=== PATIENT | male | born 1960 | race Hispanic/Latino ===

== ENCOUNTER 2020-11-15 10:19 | Inpatient (IN) | payer OTHER ==
[2020-11-15] MEDS ORDERED: SODIUM CHLORIDE 0.9% 500 ML 500 ML IV ONE (10:36)
--- NOTE | 2020-11-15 10:50 | Emergency Department Report ---
HPI - General Time Seen by Provider: 11/15/20 10:36 - HPI HPI: This is a 59-year-old male presents to the emergency department via EMS from home with a complaint of shortness of breath, cough, fever, body aches, generalized weakness. Overall the symptoms have been going on for the past 3 weeks but worsened over the past 1 to 2 days. EMS found the patient to have severe hypoxia upon arrival. He was placed on a nonrebreather and went up into the high 80s, low 90s. Patient denies any past medical history but also does not follow with a primary care physician. He denies any tobacco use. ED Past Medical Hx - Social History Smoking Status: Never Smoker Substance Use Type: None ED Review of Systems ROS: Stated complaint: KATHY Other details as noted in HPI Comment: All other systems reviewed and negative Constitutional: chills, fever Eyes: denies: eye pain, vision change ENT: denies: ear pain, throat pain Respiratory: cough, shortness of breath Cardiovascular: denies: palpitations, edema Gastrointestinal: denies: abdominal pain, vomiting Musculoskeletal: myalgia. denies: joint swelling Skin: denies: rash, lesions Neurological: denies: numbness, paresthesias Physical Exam - Physical Exam Vital Signs: Vital Signs 11/15/20 10:30 Temperature 101.0 F H Pulse Rate 116 H Respiratory 56 H Rate Blood Pressure 147/89 O2 Sat by Pulse 79 L Oximetry Physical Exam: GENERAL: Patient is ill-appearing. HENT: Normocephalic. Atraumatic. Patient has moist mucous membranes. EYES: Extraocular motions are intact. Pupils equal reactive to light bilaterally. NECK: Supple. Trachea is midline. CHEST/LUNGS: Rhonchi heard throughout the chest. There is tachypnea and a ccessory muscle use. There is conversational dyspnea. There is respiratory distress noted. HEART/CARDIOVASCULAR: Regular. There is mild tachycardia. There is no murmur. ABDOMEN: Abdomen is soft, nontender. Patient has normal bowel sounds. SKIN: Skin is warm and dry. NEURO: The patient is awake, alert, and cooperative. The patient has no focal neurologic deficits. MUSCULOSKELETAL: There is no tenderness or deformity. There is no limitation range of motion. ED Course Vital Signs 11/15/20 10:30 Temperature 101.0 F H Pulse Rate 116 H Respiratory 56 H Rate Blood Pressure 147/89 O2 Sat by Pulse 79 L Oximetry - ABG Interpretation Ph: 7.446 PCO2: 29.9 PO2: 137 Bicarbonate: 20 Interpretation: respiratory alkalosis, metabolic alkalosis ED Medical Decision Making - Lab Data Result diagrams: 11/15/20 10:39 11/15/20 10:39 Lab Results 11/15/20 11/15/20 11/15/20 Range/Units 10:39 10:39 10:39 WBC 14.3 H (4.5-11.0) K/mm3 RBC 5.17 H (3.65-5.03) M/mm3 Hgb 15.2 (11.8-15.2) gm/dl Hct 45.6 (35.5-45.6) % MCV 88 (84-94) fl MCH 30 (28-32) pg MCHC 34 (32-34) % RDW 13.3 (13.2-15.2) % Plt Count 192 (140-440) K/mm3 Lymph % (Auto) 7.8 L (13.4-35.0) % [place] % (Auto) 7.6 H (0.0-7.3) % Eos % (Auto) 0.3 (0.0-4.3) % Baso % (Auto) 1.0 (0.0-1.8) % Lymph # (Auto) 1.1 L (1.2-5.4) K/mm3 [place] # (Auto) 1.1 H (0.0-0.8) K/mm3 Eos # (Auto) 0.0 (0.0-0.4) K/mm3 Baso # (Auto) 0.1 (0.0-0.1) K/mm3 Seg Neutrophils % 83.3 H (40.0-70.0) % Seg Neutrophils # 11.9 H (1.8-7.7) K/mm3 D-Dimer (0-234) ng/mlDDU ABG pH (7.320-7.450) POC ABG pCO2 (32.0-48.0) mmHg POC ABG pO2 (83-108) mmHg POC ABG HCO3 POC ABG Base Excess ABG Hemoglobin (12.0-17.5) ABG Oxyhemoglobin (94-98) ABG Methemoglobin (0.0-1.5) ABG Sodium (136.0-145.0) mmol/L ABG Potassium (3.40-4.50) mmol/L ABG Chloride (98-107) mmol/L ABG Glucose (65-95) mg/dL Carboxyhemoglobin (0.5-1.5) FiO2 Sodium 128 L (137-145) mmol/L Potassium 4.1 (3.6-5.0) mmol/L Chloride 96.0 L (98-107) mmol/L Carbon Dioxide 22 (22-30) mmol/L Anion Gap 14 mmol/L BUN 12 (9-20) mg/dL Creatinine 0.7 L (0.8-1.3) mg/dL Estimated GFR > 60 ml/min BUN/Creatinine Ratio 17 % Glucose 238 H (75-100) mg/dL Lactic Acid 4.10 H* (0.7-2.0) mmol/L Calcium 7.0 L (8.4-10.2) mg/dL Ferritin (30.0-300.0) ng/mL Total Bilirubin 1.40 H (0.1-1.2) mg/dL AST 49 H (5-40) units/L ALT 70 H (7-56) units/L Alkaline Phosphatase 113 (35-129) units/L Lactate Dehydrogenase 663 H (91-180) units/L Troponin T < 0.010 (0.00-0.029) ng/mL C-Reactive Protein 19.80 H (0.00-1.30) mg/dL Total Protein 7.2 (6.3-8.2) g/dL Albumin 2.9 L (3.9-5) g/dL Albumin/Globulin Ratio 0.7 % Procalcitonin (<0.15) ng/mL Arterial Blood Glucose (65-95) mg/dL Arterial Blood Ionized Calcium (4.6-5.3) mg/dL 11/15/20 11/15/20 11/15/20 Range/Units 10:39 10:39 10:39 WBC (4.5-11.0) K/mm3 RBC (3.65-5.03) M/mm3 Hgb (11.8-15.2) gm/dl Hct (35.5-45.6) % MCV (84-94) fl MCH (28-32) pg MCHC (32-34) % RDW (13.2-15.2) % Plt Count (140-440) K/mm3 Lymph % (Auto) (13.4-35.0) % [place] % (Auto) (0.0-7.3) % Eos % (Auto) (0.0-4.3) % Baso % (Auto) (0.0-1.8) % Lymph # (Auto) (1.2-5.4) K/mm3 [place] # (Auto) (0.0-0.8) K/mm3 Eos # (Auto) (0.0-0.4) K/mm3 Baso # (Auto) (0.0-0.1) K/mm3 Seg Neutrophils % (40.0-70.0) % Seg Neutrophils # (1.8-7.7) K/mm3 D-Dimer > 11536 H (0-234) ng/mlDDU ABG pH (7.320-7.450) POC ABG pCO2 (32.0-48.0) mmHg POC ABG pO2 (83-108) mmHg POC ABG HCO3 POC ABG Base Excess ABG Hemoglobin (12.0-17.5) ABG Oxyhemoglobin (94-98) ABG Methemoglobin (0.0-1.5) ABG Sodium (136.0-145.0) mmol/L ABG Potassium (3.40-4.50) mmol/L ABG Chloride (98-107) mmol/L ABG Glucose (65-95) mg/dL Carboxyhemoglobin (0.5-1.5) FiO2 Sodium (137-145) mmol/L Potassium (3.6-5.0) mmol/L Chloride (98-107) mmol/L Carbon Dioxide (22-30) mmol/L Anion Gap mmol/L BUN (9-20) mg/dL Creatinine (0.8-1.3) mg/dL Estimated GFR ml/min BUN/Creatinine Ratio % Glucose (75-100) mg/dL Lactic Acid (0.7-2.0) mmol/L Calcium (8.4-10.2) mg/dL Ferritin 672.8 H (30.0-300.0) ng/mL Total Bilirubin (0.1-1.2) mg/dL AST (5-40) units/L ALT (7-56) units/L Alkaline Phosphatase (35-129) units/L Lactate Dehydrogenase (91-180) units/L Troponin T (0.00-0.029) ng/mL C-Reactive Protein (0.00-1.30) mg/dL Total Protein (6.3-8.2) g/dL Albumin (3.9-5) g/dL Albumin/Globulin Ratio % Procalcitonin 0.51 (<0.15) ng/mL Arterial Blood Glucose (65-95) mg/dL Arterial Blood Ionized Calcium (4.6-5.3) mg/dL 11/15/20 Range/Units 11:20 WBC (4.5-11.0) K/mm3 RBC (3.65-5.03) M/mm3 Hgb (11.8-15.2) gm/dl Hct (35.5-45.6) % MCV (84-94) fl MCH (28-32) pg MCHC (32-34) % RDW (13.2-15.2) % Plt Count (140-440) K/mm3 Lymph % (Auto) (13.4-35.0) % [place] % (Auto) (0.0-7.3) % Eos % (Auto) (0.0-4.3) % Baso % (Auto) (0.0-1.8) % Lymph # (Auto) (1.2-5.4) K/mm3 [place] # (Auto) (0.0-0.8) K/mm3 Eos # (Auto) (0.0-0.4) K/mm3 Baso # (Auto) (0.0-0.1) K/mm3 Seg Neutrophils % (40.0-70.0) % Seg Neutrophils # (1.8-7.7) K/mm3 D-Dimer (0-234) ng/mlDDU ABG pH 7.446 (7.320-7.450) POC ABG pCO2 29.9 L (32.0-48.0) mmHg POC ABG pO2 137.3 H (83-108) mmHg POC ABG HCO3 20.1 POC ABG Base Excess -2.6 ABG Hemoglobin 15.0 (12.0-17.5) ABG Oxyhemoglobin 96.8 (94-98) ABG Methemoglobin 0.3 (0.0-1.5) ABG Sodium 126.5 L (136.0-145.0) mmol/L ABG Potassium 3.9 (3.40-4.50) mmol/L ABG Chloride 100.0 (98-107) mmol/L ABG Glucose 248 H (65-95) mg/dL Carboxyhemoglobin 1.5 (0.5-1.5) FiO2 100.0 Sodium (137-145) mmol/L Potassium (3.6-5.0) mmol/L Chloride (98-107) mmol/L Carbon Dioxide (22-30) mmol/L Anion Gap mmol/L BUN (9-20) mg/dL Creatinine (0.8-1.3) mg/dL Estimated GFR ml/min BUN/Creatinine Ratio % Glucose (75-100) mg/dL Lactic Acid (0.7-2.0) mmol/L Calcium (8.4-10.2) mg/dL Ferritin (30.0-300.0) ng/mL Total Bilirubin (0.1-1.2) mg/dL AST (5-40) units/L ALT (7-56) units/L Alkaline Phosphatase (35-129) units/L Lactate Dehydrogenase (91-180) units/L Troponin T (0.00-0.029) ng/mL C-Reactive Protein (0.00-1.30) mg/dL Total Protein (6.3-8.2) g/dL Albumin (3.9-5) g/dL Albumin/Globulin Ratio % Procalcitonin (<0.15) ng/mL Arterial Blood Glucose 248 H (65-95) mg/dL Arterial Blood Ionized Calcium 4.1 L (4.6-5.3) mg/dL - Radiology Data Radiology results: image reviewed interpreted by me: Chest x-ray shows bilateral patchy groundglass opacities concerning for pneumonia. No pneumothorax. No osseous abnormalities. - Medical Decision Making This patient presents to the emergency department with shortness of breath, fever, body aches, cough. Patient was very hypoxic when picked up by EMS. He arrived on a nonrebreather and was placed on a BiPAP. The patient tolerated the BiPAP well and his pulse ox went up to the high 90s and the tachypnea slowed slightly into the 30s. Chest x-ray shows bilateral patchy opacities concerning for pneumonia and consistent with COVID-19. Patient's labs shows a mild leukocytosis of 14,000, hyponatremia, mild transaminitis, and elevated inflammatory markers such as D-dimer, LDH, ferritin and CRP. The patient was given IV fluid resuscitation, IV Solu-Medrol, IV antibiotics. He will be admitted to the [facility] and has been accepted for admission by the hospitalist, Dr. Broussard. The patient was placed in patient isolation and droplet precautions immediately upon arrival to the main emergency department. I wore full PPE gear including a surgical hat, goggles, N95 mask, surgical mask, gown, and double gloves for every encounter. Critical Care Time: Yes Critical care time in (mins) excluding proc time.: 35 Critical care attestation.: If time is entered above; I have spent that time in minutes in the direct care of this critically ill patient, excluding procedure time. Critical care time was spent on this patient in doing his initial evaluation, multiple reeva luations, ordering and interpretation of labs and imaging, IV fluid resuscitation, IV Solu-Medrol, IV antibiotics, supplemental oxygen by BiPAP. Critical Care Time: 35 minutes ED Disposition Clinical Impression: Suspected 2019 novel coronavirus infection, Hypoxia Bilateral pneumonia Qualifiers: Pneumonia type: due to unspecified organism Lung location: unspecified part of lung Qualified Code(s): J18.9 - Pneumonia, unspecified organism Acute respiratory failure Qualifiers: Respiratory failure complication: hypoxia Qualified Code(s): J96.01 - Acute respiratory failure with hypoxia Disposition: 09 OP ADMIT IP TO THIS HOSP Is pt being admited?: Yes Condition: Serious Time of Disposition: 12:06
[2020-11-15 11:11] LABS: Hematocrit 45.6 % (35.5-45.6); Hemoglobin 15.2 gm/dl (11.8-15.2); Mean Corpuscular HGB Conc 34 % (32-34); Mean Corpuscular Volume 88 fl (84-94); Red Blood Count 5.17 M/mm3 (3.65-5.03); Red Cell Distribution Width 13.3 % (13.2-15.2)
[2020-11-15 11:12] LABS: Alanine Aminotransferase 70 units/L (7-56); Albumin 2.9 g/dL (3.9-5); Basophils # (Auto) 0.1 K/mm3 (0.0-0.1); Blood Urea Nitrogen 12 mg/dL (9-20); Eosinophils % (Auto) 0.3 % (0.0-4.3); Hemolysis Index 5; Lymphocytes # (Auto) 1.1 K/mm3 (1.2-5.4); Lymphocytes % (Auto) 7.8 % (13.4-35.0); Monocytes # (Auto) 1.1 K/mm3 (0.0-0.8); Monocytes % (Auto) 7.6 % (0.0-7.3); Platelet Count 192 K/mm3 (140-440)
[2020-11-15 11:13] LABS: BUN/Creatinine Ratio 17
[2020-11-15] MEDS ORDERED: AZITHROMYCIN/NS 500 MG/250 ML 500 MG/250 ML BAG IV ONE (11:20)
[2020-11-15] MEDS ORDERED: KETOROLAC 30 MG/1 ML INJ IV ONE (11:21)
[2020-11-15] MEDS ORDERED: methylPREDNISolone Sod Succinate 125 MG/2 ML INJ IV ONE (11:24)
--- NOTE | 2020-11-15 11:43 | XRay Report ---
CHEST 1 VIEW 11/15/2020 10:30 AM INDICATION / CLINICAL INFORMATION: SOB. COMPARISON: None available. FINDINGS: SUPPORT DEVICES: None. HEART / MEDIASTINUM: No significant abnormality. LUNGS / PLEURA: There are diffuse bilateral airspace and interstitial opacities. No pneumothorax. ADDITIONAL FINDINGS: No significant additional findings. IMPRESSION: 1. Diffuse bilateral airspace and interstitial opacities are concerning for an infectious process, in cluding viral and atypical etiologies. Pulmonary edema is also a consideration, considered less likel y. Signer Name: Pasquale Gonzalez MD Signed: 11/15/2020 11:39 AM Workstation Name: [id number]
--- NOTE | 2020-11-15 23:53 | History and Physical Report ---
History of Present Illness Date of examination: 11/15/20 Date of admission: 11/15/20 12:06 Chief complaint: Shortness of breath for 2 days History of present illness: 59-year-old female presents with shortness of breath cough fever weakness. "1 to 2 days. Patient has severe hypoxia per EMS. Her saturations are in the low 80s. With all oxygen and nonrebreather came down to low 90s. Patient denies any past medical history. Exposure to coronavirus present. Does not have a primary care physician. past medical history None Surgical history None - Social History Smoking Status: Never Smoker Substance Use Type: None Family history noncontributory Review of Systems ROS: Stated complaint: KATHY Other details as noted in HPI Comment: All other systems reviewed and negative Constitutional: chills, fever Eyes: denies: eye pain, vision change ENT: denies: ear pain, throat pain Respiratory: cough, shortness of breath Cardiovascular: denies: palpitations, edema Gastrointestinal: denies: abdominal pain, vomiting Musculoskeletal: myalgia. denies: joint swelling Skin: denies: rash, lesions Neurological: denies: numbness, paresthesias Medications and Allergies Allergies Allergy/AdvReac Type Severity Reaction Status Date / Time No Known Allergies Allergy Verified 11/16/20 00:01 Home Medications Medication Instructions Recorded Confirmed Last Taken Type No Known Home Medications [No 11/15/20 11/15/20 Unknown History Reported Home Medications] Exam - Constitutional Vitals: Temp Pulse Resp BP Pulse Ox 98.0 F 75 34 H 106/70 93 11/15/20 20:00 11/15/20 23:21 11/15/20 23:21 11/15/20 23:21 11/15/20 23:11 General appearance: Present: mild distress, well-nourished - EENT Eyes: Present: PERRL ENT: hearing intact, clear oral mucosa - Neck Neck: Present: supple, normal ROM - Respiratory Respiratory effort: normal Respiratory: bilateral: CTA, rhonchi (Scattered rhonchi) - Cardiovascular Heart rate: 88 Rhythm: regular Heart Sounds: Present: S1 & S2. Absent: rub, click - Extremities Extremities: pulses symmetrical, No edema Peripheral Pulses: within normal limits - Abdominal General gastrointestinal: Present: soft, non-tender, non-distended, normal bowel sounds Male genitourinary: Present: normal - Integumentary Integumentary: Present: clear, warm, dry - Musculoskeletal Musculoskeletal: gait normal, strength equal bilaterally - Psychiatric Psychiatric: appropriate mood/affect, intact judgment & insight - Neurologic Neurologic: CNII-XII intact, moves all extremities HEART Score - HEART Score Troponin: Troponin T < 0.010 ng/mL (0.00-0.029) 11/15/20 10:39 Results - Labs CBC & Chem 7: 11/16/20 05:29 11/16/20 05:29 Labs: Laboratory Last Values WBC 14.3 K/mm3 (4.5-11.0) H 11/15/20 10:39 RBC 5.17 M/mm3 (3.65-5.03) H 11/15/20 10:39 Hgb 15.2 gm/dl (11.8-15.2) 11/15/20 10:39 Hct 45.6 % (35.5-45.6) 11/15/20 10:39 MCV 88 fl (84-94) 11/15/20 10:39 MCH 30 pg (28-32) 11/15/20 10:39 MCHC 34 % (32-34) 11/15/20 10:39 RDW 13.3 % (13.2-15.2) 11/15/20 10:39 Plt Count 192 K/mm3 (140-440) 11/15/20 10:39 Lymph % (Auto) 7.8 % (13.4-35.0) L 11/15/20 10:39 [place] % (Auto) 7.6 % (0.0-7.3) H 11/15/20 10:39 Eos % (Auto) 0.3 % (0.0-4.3) 11/15/20 10:39 Baso % (Auto) 1.0 % (0.0-1.8) 11/15/20 10:39 Lymph # (Auto) 1.1 K/mm3 (1.2-5.4) L 11/15/20 10:39 [place] # (Auto) 1.1 K/mm3 (0.0-0.8) H 11/15/20 10:39 Eos # (Auto) 0.0 K/mm3 (0.0-0.4) 11/15/20 10:39 Baso # (Auto) 0.1 K/mm3 (0.0-0.1) 11/15/20 10:39 Seg Neutrophils % 83.3 % (40.0-70.0) H 11/15/20 10:39 Seg Neutrophils # 11.9 K/mm3 (1.8-7.7) H 11/15/20 10:39 D-Dimer > 35246 ng/mlDDU (0-234) H 11/15/20 10:39 ABG pH 7.446 (7.320-7.450) 11/15/20 11:20 POC ABG pCO2 29.9 mmHg (32.0-48.0) L 11/15/20 11:20 POC ABG pO2 137.3 mmHg (83-108) H 11/15/20 11:20 POC ABG HCO3 20.1 11/15/20 11:20 POC ABG Base Excess -2.6 11/15/20 11:20 ABG Hemoglobin 15.0 (12.0-17.5) 11/15/20 11:20 ABG Oxyhemoglobin 96.8 (94-98) 11/15/20 11:20 ABG Methemoglobin 0.3 (0.0-1.5) 11/15/20 11:20 ABG Sodium 126.5 mmol/L (136.0-145.0) L 11/15/20 11:20 ABG Potassium 3.9 mmol/L (3.40-4.50) 11/15/20 11:20 ABG Chloride 100.0 mmol/L (98-107) 11/15/20 11:20 ABG Glucose 248 mg/dL (65-95) H 11/15/20 11:20 Carboxyhemoglobin 1.5 (0.5-1.5) 11/15/20 11:20 FiO2 100.0 11/15/20 11:20 Sodium 128 mmol/L (137-145) L 11/15/20 10:39 Potassium 4.1 mmol/L (3.6-5.0) 11/15/20 10:39 Chloride 96.0 mmol/L (98-107) L 11/15/20 10:39 Carbon Dioxide 22 mmol/L (22-30) 11/15/20 10:39 Anion Gap 14 mmol/L 11/15/20 10:39 BUN 12 mg/dL (9-20) 11/15/20 10:39 Creatinine 0.7 mg/dL (0.8-1.3) L 11/15/20 10:39 Estimated GFR > 60 ml/min 11/15/20 10:39 BUN/Creatinine Ratio 17 % 11/15/20 10:39 Glucose 238 mg/dL (75-100) H 11/15/20 10:39 POC Glucose 284 mg/dL (70-105) H 11/15/20 23:41 Lactic Acid 2.30 mmol/L (0.7-2.0) H* 11/15/20 13:41 Calcium 7.0 mg/dL (8.4-10.2) L 11/15/20 10:39 Ferritin 672.8 ng/mL (30.0-300.0) H 11/15/20 10:39 Total Bilirubin 1.40 mg/dL (0.1-1.2) H 11/15/20 10:39 AST 49 units/L (5-40) H 11/15/20 10:39 ALT 70 units/L (7-56) H 11/15/20 10:39 Alkaline Phosphatase 113 units/L (35-129) 11/15/20 10:39 Lactate Dehydrogenase 663 units/L (91-180) H 11/15/20 10:39 Troponin T < 0.010 ng/mL (0.00-0.029) 11/15/20 10:39 C-Reactive Protein 19.80 mg/dL (0.00-1.30) H 11/15/20 10:39 Total Protein 7.2 g/dL (6.3-8.2) 11/15/20 10:39 Albumin 2.9 g/dL (3.9-5) L 11/15/20 10:39 Albumin/Globulin Ratio 0.7 % 11/15/20 10:39 Procalcitonin 0.51 ng/mL (<0.15) 11/15/20 10:39 Arterial Blood Glucose 248 mg/dL (65-95) H 11/15/20 11:20 Arterial Blood Ionized Calcium 4.1 mg/dL (4.6-5.3) L 11/15/20 11:20 Short CBC 11/15/20 Range/Units 10:39 WBC 14.3 H (4.5-11.0) K/mm3 Hgb 15.2 (11.8-15.2) gm/dl Hct 45.6 (35.5-45.6) % Plt Count 192 (140-440) K/mm3 BMP 11/15/20 10:39 Sodium 128 L Potassium 4.1 Chloride 96.0 L Carbon Dioxide 22 BUN 12 Creatinine 0.7 L Glucose 238 H Calcium 7.0 L Cardiac Enzymes 11/15/20 Range/Units 10:39 Troponin T < 0.010 (0.00-0.029) ng/mL Liver Function 11/15/20 Range/Units 10:39 Total Bilirubin 1.40 H (0.1-1.2) mg/dL AST 49 H (5-40) units/L ALT 70 H (7-56) units/L Alkaline Phosphatase 113 (35-129) units/L Albumin 2.9 L (3.9-5) g/dL Microbiology: Microbiology 11/15/20 10:39 Peripheral/Venous Blood Culture - Preliminary Culture in Progress 11/15/20 10:39 Peripheral/Venous Blood Culture - Preliminary Culture in Progress - Imaging and Cardiology Chest x-ray: report reviewed Imaging and Cardiology: Chest x-ray IMPRESSION: 1. Diffuse bilateral airspace and interstitial opacities are concerning for an infectious process, including viral and atypical etiologies. Pulmonary edema is also a consideration, considered less likely. Gupta/IV: Voiding Method Urinal IV Catheter Type [Left Peripheral IV Antecubital] Assessment and Plan Advance Directives: Yes (Full code) VTE prophylaxis?: Chemical Plan of care discussed with patient/family: Yes - Patient Problems (1) Acute respiratory failure with hypoxia Current Visit: Yes Status: Acute Plan to address problem: Patient on 40% Ventimask Oxygen supplementation as necessary Pulmonary consult requested (2) Sepsis Current Visit: Yes Status: Acute Plan to address problem: Patient has high lactic acid and high white count consistent with sepsis IV antibiotics for now (3) Bilateral pneumonia Current Visit: Yes Status: Acute Qualifiers: Pneumonia type: due to unspecified organism Lung location: unspecified part of lung Qualified Code(s): J18.9 - Pneumonia, unspecified organism Plan to address problem: Patient initiated on IV ceftriaxone and azithromycin Treat as community-acquired pneumonia for now ID consult requested (4) Suspected 2019 novel coronavirus infection Current Visit: Yes Status: Acute Plan to address problem: Coronavirus PCR requested Patient initiated on IV Decadron 8 mg every 24 (5) Hyponatremia Current Visit: Yes Status: Acute Plan to address problem: Normal saline for 75 cc/h for 12 hours (6) Transaminitis Current Visit: Yes Status: Acute Plan to address problem: Secondary to Covid infection (7) DVT prophylaxis Current Visit: Yes Status: Acute Plan to address problem: On Lovenox and GI prophylaxis (8) Hyperglycemia Current Visit: Yes Status: Acute Plan to address problem: Patient may be having type 2 diabetes which is undiagnosed Check hemoglobin A1c Accu-Cheks for now and coverage for now May need insulin at the time of discharge
[2020-11-15] MEDS ORDERED: ONDANSETRON 4 MG/2 ML INJ IV PRN (23:55)
[2020-11-15] MEDS ORDERED: oxyCODONE /ACETAMINOPHEN 5-325MG TAB PO PRN (23:55)
[2020-11-15] MEDS ORDERED: METOCLOPRAMIDE 10 MG/2 ML INJ IV PRN (23:55)
[2020-11-15] MEDS ORDERED: HYDROmorphone 1 MG/1 ML INJ IV PRN (23:55)
[2020-11-16] MEDS ORDERED: dexAMETHasone 4 MG/ML VIAL IV SCH
[2020-11-16] MEDS: FAMOTIDINE 20 MG TAB PO SCH ×3 (01:57→22:17)
[2020-11-16 02:34] LABS: Bacteria,Urine 1+ /HPF (Negative); Bilirubin,Urine NEG (Negative); Blood,Urine NEG (Negative); Color,Urine Amber (Yellow); Mucus,Urine 3+ /HPF
[2020-11-16 05:42] LABS: Basophils # (Auto) 0.2 K/mm3 (0.0-0.1); Basophils % (Auto) 1.4 % (0.0-1.8); Hematocrit 41.5 % (35.5-45.6); Hemoglobin 14.2 gm/dl (11.8-15.2); Lymphocytes # (Auto) 0.6 K/mm3 (1.2-5.4); Lymphocytes % (Auto) 4.5 % (13.4-35.0); Mean Corpuscular HGB Conc 34 % (32-34); Mean Corpuscular Volume 88 fl (84-94); Monocytes # (Auto) 0.6 K/mm3 (0.0-0.8); Monocytes % (Auto) 4.3 % (0.0-7.3); Platelet Count 146 K/mm3 (140-440); Red Blood Count 4.74 M/mm3 (3.65-5.03); Red Cell Distribution Width 13.3 % (13.2-15.2)
[2020-11-16 06:07] LABS: Alanine Aminotransferase 49 units/L (7-56); Albumin 2.4 g/dL (3.9-5); Blood Urea Nitrogen 23 mg/dL (9-20); Hemolysis Index 6
[2020-11-16 06:10] LABS: BUN/Creatinine Ratio 38
--- NOTE | 2020-11-16 08:31 | Consultation ---
History of Present Illness Consult date: 11/16/20 Requesting physician: MAUREEN BRIONES Reason for consult: hypoxemia History of present illness: 59 y/o male presents with 3 weeks of worsening shortness of breath. Hypoxic in the field and placed on non-rebreather and now continuous bipap therapy. Patient had an ABG that showed respiratory alkalosis with hypoxemia. CXR shows mild cardiomegaly and bilateral airspace disease that appears to be more dense on the periphery. Placed in isolation as concern for COVID. Started on Dexamethasone. Given 125 of solumedrol in the ED. STarted on empiric abx therapy. Remainder of the review is negative. Labs were abnormal with elevated inflammatory markers and elevated lactic acid. Medications and Allergies Allergies Allergy/AdvReac Type Severity Reaction Status Date / Time No Known Allergies Allergy Verified 11/16/20 00:01 Home Medications Medication Instructions Recorded Confirmed Last Taken Type No Known Home Medications [No 11/15/20 11/15/20 Unknown History Reported Home Medications] Active Meds: Active Medications Acetaminophen (Acetaminophen 325 Mg Tab) 650 mg PO Q4H PRN PRN Reason: Pain MILD(1-3)/Fever >100.5/BUTTS Dexamethasone (Dexamethasone 4 Mg/Ml Vial) 6 mg IV Q24H RAEANN Enoxaparin Sodium (Enoxaparin 40 Mg/0.4 Ml Inj) 40 mg SUB-Q QDAY@2200 RAEANN; Protocol Famotidine (Famotidine 20 Mg Tab) 20 mg PO BID RAEANN Last Admin: 11/16/20 01:57 Dose: 20 mg Documented by: Hydromorphone HCl (Hydromorphone 1 Mg/1 Ml Inj) 0.5 mg IV Q3H PRN PRN Reason: Pain , Severe (7-10) Azithromycin (Zithromax/Ns) 500 mg in 250 mls @ 250 mls/hr IV Q24H RAEANN Ceftriaxone Sodium (Rocephin/Ns 2 Gm/100 Ml) 2 gm in 100 mls @ 200 mls/hr IV Q24HR RAEANN; Protocol Insulin Human Lispro (Insulin Lispro 100 Unit/Ml) 0 unit SUB-Q ACHS RAEANN; Protocol Metoclopramide HCl (Metoclopramide 10 Mg/2 Ml Inj) 10 mg IV Q6H PRN PRN Reason: Nausea And Vomiting Ondansetron HCl (Ondansetron 4 Mg/2 Ml Inj) 4 mg IV Q8H PRN PRN Reason: Nausea And Vomiting Oxycodone/Acetaminophen (Oxycodone /Acetaminophen 5-325mg Tab) 1 tab PO Q6H PRN PRN Reason: Pain, Moderate (4-6) Sodium Chloride (Sodium Chloride 0.9% 10 Ml Flush Syringe) 10 ml IV BID RAEANN Sodium Chloride (Sodium Chloride 0.9% 10 Ml Flush Syringe) 10 ml IV PRN PRN PRN Reason: LINE FLUSH Physical Examination Vital signs: Vital Signs Temp Pulse Resp BP Pulse Ox 101.0 F H 116 H 46 H 145/90 99 11/15/20 10:30 11/15/20 10:30 11/15/20 10:30 11/15/20 10:30 11/15/20 10:30 General appearance: alert ENT: other (full face mask bipap being worn) Ascultation: Bilateral: rales Percussion: Bilateral: not dull Cardiovascular: regular rate and rhythm Gastrointestinal: soft, non-tender Results - Laboratory Findings CBC and BMP: 11/16/20 05:29 11/16/20 05:29 ABG ABG pH 7.446 (7.320-7.450) 11/15/20 11:20 POC ABG pCO2 29.9 mmHg (32.0-48.0) L 11/15/20 11:20 POC ABG pO2 137.3 mmHg (83-108) H 11/15/20 11:20 POC ABG HCO3 20.1 11/15/20 11:20 PT/INR, D-dimer D-Dimer > 98155 ng/mlDDU (0-234) H 11/15/20 10:39 Abnormal lab findings: Abnormal Labs 11/15/20 11/15/20 11/15/20 10:39 10:39 10:39 WBC 14.3 H RBC 5.17 H Lymph % (Auto) 7.8 L [place] % (Auto) 7.6 H Lymph # (Auto) 1.1 L [place] # (Auto) 1.1 H Baso # (Auto) Seg Neutrophils % 83.3 H Seg Neutrophils # 11.9 H D-Dimer POC ABG pCO2 POC ABG pO2 ABG Sodium ABG Glucose Sodium 128 L Chloride 96.0 L Carbon Dioxide BUN Creatinine 0.7 L Glucose 238 H POC Glucose Hemoglobin A1c Lactic Acid 4.10 H* Calcium 7.0 L Ferritin Total Bilirubin 1.40 H AST 49 H ALT 70 H Lactate Dehydrogenase 663 H C-Reactive Protein 19.80 H Albumin 2.9 L Arterial Blood Glucose Arterial Blood Ionized Calcium Ur Specific [place] 11/15/20 11/15/20 11/15/20 10:39 10:39 11:20 WBC RBC Lymph % (Auto) [place] % (Auto) Lymph # (Auto) [place] # (Auto) Baso # (Auto) Seg Neutrophils % Seg Neutrophils # D-Dimer > 24107 H POC ABG pCO2 29.9 L POC ABG pO2 137.3 H ABG Sodium 126.5 L ABG Glucose 248 H Sodium Chloride Carbon Dioxide BUN Creatinine Glucose POC Glucose Hemoglobin A1c Lactic Acid Calcium Ferritin 672.8 H Total Bilirubin AST ALT Lactate Dehydrogenase C-Reactive Protein Albumin Arterial Blood Glucose 248 H Arterial Blood Ionized Calcium 4.1 L Ur Specific [place] 11/15/20 11/15/20 11/16/20 13:41 23:41 01:45 WBC RBC Lymph % (Auto) [place] % (Auto) Lymph # (Auto) [place] # (Auto) Baso # (Auto) Seg Neutrophils % Seg Neutrophils # D-Dimer POC ABG pCO2 POC ABG pO2 ABG Sodium ABG Glucose Sodium Chloride Carbon Dioxide BUN Creatinine Glucose POC Glucose 284 H Hemoglobin A1c Lactic Acid 2.30 H* Calcium Ferritin Total Bilirubin AST ALT Lactate Dehydrogenase C-Reactive Protein Albumin Arterial Blood Glucose Arterial Blood Ionized Calcium Ur Specific [place] 1.037 H 11/16/20 11/16/20 11/16/20 05:29 05:29 05:29 WBC 12.9 H RBC Lymph % (Auto) 4.5 L [place] % (Auto) Lymph # (Auto) 0.6 L [place] # (Auto) Baso # (Auto) 0.2 H Seg Neutrophils % 89.8 H Seg Neutrophils # 11.5 H D-Dimer POC ABG pCO2 POC ABG pO2 ABG Sodium ABG Glucose Sodium 131 L Chloride Carbon Dioxide 21 L BUN 23 H Creatinine 0.6 L Glucose 342 H POC Glucose Hemoglobin A1c Lactic Acid 2.60 H* Calcium 7.0 L Ferritin Total Bilirubin AST ALT Lactate Dehydrogenase C-Reactive Protein Albumin 2.4 L Arterial Blood Glucose Arterial Blood Ionized Calcium Ur Specific [place] 11/16/20 05:29 WBC RBC Lymph % (Auto) [place] % (Auto) Lymph # (Auto) [place] # (Auto) Baso # (Auto) Seg Neutrophils % Seg Neutrophils # D-Dimer POC ABG pCO2 POC ABG pO2 ABG Sodium ABG Glucose Sodium Chloride Carbon Dioxide BUN Creatinine Glucose POC Glucose Hemoglobin A1c 11.7 H Lactic Acid Calcium Ferritin Total Bilirubin AST ALT Lactate Dehydrogenase C-Reactive Protein Albumin Arterial Blood Glucose Arterial Blood Ionized Calcium Ur Specific [place] - Diagnostic Findings Chest x-ray: image reviewed Assessment and Plan 59 y/o male with acute respiratory failure, abnormal CXR and abnormal lab studies. 1. Pulm- Agree with concern for covid. Agree with empiric abx but procal is only mildly elevated. Await cultures. Continue bipap therapy for now but will need to monitor closely. [facility] [place] has ordered CTA, but I spoke with pharmacy and we will empirically treat with BID lovenox therapy. COntinue empiric steroid therapy for COVID until studies back. Not sure that he will be able to prone on bipap therapy. MOnitor volume status and run as dry as possible. 2. Renal-normal function but all electrolytes abnormal. HYponatremia and Hypochloremia volume up vs volume down. Sent BNP. Would suggest obtaning echo as well. Not sure what to make of elevated lactate unless that is from increased work of breathing or damage to other tissue unknown. May need to check LFT's and Coags as well. 3. Guarded Prognosis.
[2020-11-16] MEDS: ENOXAPARIN 80 MG/0.8 ML INJ SUB-Q SCH ×2 (10:02→22:17)
[2020-11-16] MEDS: AZITHROMYCIN/NS 500 MG/250 ML 500 MG/250 ML BAG IV SCH (10:02)
[2020-11-16] MEDS: cefTRIAXone/NS 2 GM/100 ML 2 GM/100 ML BAG IV SCH (10:03)
--- NOTE | 2020-11-16 10:32 | Progress Note ---
Assessment and Plan Assessment and plan: 59-year-old female presents with shortness of breath cough fever weakness. "1 to 2 days. Patient has severe hypoxia per EMS. Her saturations are in the low 80s. With all oxygen and nonrebreather came down to low 90s. Patient denies any past medical history. Exposure to coronavirus present. Does not have a primary care physician. 11/16: Patient continues on BiPAP throughout the night. Labs are remarkable for hypoxia with improving renal function but lactic acidosis without fever. CTA has been ordered to rule out pulmonary embolism. I agree with increasing enoxaparin to twice daily full dose for empiric treatment of pulmonary embolism. Will obtain ID consultation on further evaluation for possible underlying pneumonia versus COVID-19. We will also obtain echocardiogram for evaluation. Will discontinue fluids at this time. (1) Acute respiratory failure with hypoxia Current Visit: Yes Status: Acute Plan to address problem: Patient on 40% Ventimask Oxygen supplementation as necessary Pulmonary consult requested (2) Sepsis Current Visit: Yes Status: Acute Plan to address problem: Patient has high lactic acid and high white count consistent with sepsis IV antibiotics for now (3) Bilateral pneumonia Current Visit: Yes Status: Acute Qualifiers: Pneumonia type: due to unspecified organism Lung location: unspecified part of lung Qualified Code(s): J18.9 - Pneumonia, unspecified organism Plan to address problem: Patient initiated on IV ceftriaxone and azithromycin Treat as community-acquired pneumonia for now ID consult requested (4) Suspected 2019 novel coronavirus infection Current Visit: Yes Status: Acute Plan to address problem: Coronavirus PCR requested Patient initiated on IV Decadron 8 mg every 24 (5) Hyponatremia Current Visit: Yes Status: Acute Plan to address problem: Normal saline for 75 cc/h for 12 hours (6) Transaminitis Current Visit: Yes Status: Acute Plan to address problem: Secondary to Covid infection (7) DVT prophylaxis Current Visit: Yes Status: Acute Plan to address problem: On Lovenox and GI prophylaxis (8) Hyperglycemia Current Visit: Yes Status: Acute Plan to address problem: Patient may be having type 2 diabetes which is undiagnosed Check hemoglobin A1c Accu-Cheks for now and coverage for now May need insulin at the time of discharge The high probability of a clinically significant, sudden or life threatening deterioration of the [pulmonary] system(s) required my full and direct attention, intervention and personal management. The aggregate critical care time was [35] minutes. This time is in addition to time spent performing reported procedures but includes the following: [X] Data Review and interpretation [X] Patient assessment and monitoring of vital signs [X] Documentation [X] Medication orders and management History Interval history: Patient seen and examined still with shortness of breath on BiPAP. Discussed with nursing staff about CTA. Hospitalist Physical - Physical exam Narrative exam: VITAL SIGNS: Reviewed. GENERAL: The patient appears normally developed, mild to moderate respiratory distress vital signs as documented. HEAD: No signs of head trauma. EYES: Pupils are equal. Extraocular motions intact. EARS: Hearing grossly intact. MOUTH: Oropharynx is normal. NECK: No adenopathy, no JVD. CHEST: Chest with diminished breath sounds bilaterally. No wheezes, rales, or rhonchi. CARDIAC: Regular rate and rhythm. S1 and S2, without murmurs, gallops, or rubs. VASCULAR: No Edema. Peripheral pulses normal and equal in all extremities. ABDOMEN: Soft, non tender and non distended. No rebound or guarding, and no masses palpated. Bowel Sounds normal. MUSCULOSKELETAL: Good range of motion of all major joints. Extremities without clubbing, cyanosis or edema. NEUROLOGIC EXAM: Alert and oriented x 3 No focal sensory or strength deficits. Speech normal. Follows commands. PSYCHIATRIC: Mood normal. SKIN: detail exam as documented in skin assessment - Constitutional Vitals: Temp Pulse Resp BP Pulse Ox 98.1 F 70 35 H 118/76 95 11/16/20 08:42 11/16/20 07:59 11/16/20 07:59 11/16/20 07:59 11/16/20 07:59 General appearance: Present: mild distress, well-nourished HEART Score - HEART Score Troponin: Troponin T < 0.010 ng/mL (0.00-0.029) 11/15/20 10:39 Results - Labs CBC & Chem 7: 11/16/20 05:29 11/16/20 05:29 Labs: Laboratory Last Values WBC 12.9 K/mm3 (4.5-11.0) H 11/16/20 05:29 RBC 4.74 M/mm3 (3.65-5.03) 11/16/20 05:29 Hgb 14.2 gm/dl (11.8-15.2) 11/16/20 05:29 Hct 41.5 % (35.5-45.6) 11/16/20 05:29 MCV 88 fl (84-94) 11/16/20 05:29 MCH 30 pg (28-32) 11/16/20 05:29 MCHC 34 % (32-34) 11/16/20 05:29 RDW 13.3 % (13.2-15.2) 11/16/20 05:29 Plt Count 146 K/mm3 (140-440) 11/16/20 05:29 Lymph % (Auto) 4.5 % (13.4-35.0) L 11/16/20 05:29 [place] % (Auto) 4.3 % (0.0-7.3) 11/16/20 05:29 Eos % (Auto) 0.0 % (0.0-4.3) 11/16/20 05:29 Baso % (Auto) 1.4 % (0.0-1.8) 11/16/20 05:29 Lymph # (Auto) 0.6 K/mm3 (1.2-5.4) L 11/16/20 05:29 [place] # (Auto) 0.6 K/mm3 (0.0-0.8) 11/16/20 05:29 Eos # (Auto) 0.0 K/mm3 (0.0-0.4) 11/16/20 05:29 Baso # (Auto) 0.2 K/mm3 (0.0-0.1) H 11/16/20 05:29 Seg Neutrophils % 89.8 % (40.0-70.0) H 11/16/20 05:29 Seg Neutrophils # 11.5 K/mm3 (1.8-7.7) H 11/16/20 05:29 D-Dimer > 51626 ng/mlDDU (0-234) H 11/15/20 10:39 ABG pH 7.446 (7.320-7.450) 11/15/20 11:20 POC ABG pCO2 29.9 mmHg (32.0-48.0) L 11/15/20 11:20 POC ABG pO2 137.3 mmHg (83-108) H 11/15/20 11:20 POC ABG HCO3 20.1 11/15/20 11:20 POC ABG Base Excess -2.6 11/15/20 11:20 ABG Hemoglobin 15.0 (12.0-17.5) 11/15/20 11:20 ABG Oxyhemoglobin 96.8 (94-98) 11/15/20 11:20 ABG Methemoglobin 0.3 (0.0-1.5) 11/15/20 11:20 ABG Sodium 126.5 mmol/L (136.0-145.0) L 11/15/20 11:20 ABG Potassium 3.9 mmol/L (3.40-4.50) 11/15/20 11:20 ABG Chloride 100.0 mmol/L (98-107) 11/15/20 11:20 ABG Glucose 248 mg/dL (65-95) H 11/15/20 11:20 Carboxyhemoglobin 1.5 (0.5-1.5) 11/15/20 11:20 FiO2 100.0 11/15/20 11:20 Sodium 131 mmol/L (137-145) L 11/16/20 05:29 Potassium 4.6 mmol/L (3.6-5.0) 11/16/20 05:29 Chloride 100.7 mmol/L (98-107) 11/16/20 05:29 Carbon Dioxide 21 mmol/L (22-30) L 11/16/20 05:29 Anion Gap 14 mmol/L 11/16/20 05:29 BUN 23 mg/dL (9-20) H 11/16/20 05:29 Creatinine 0.6 mg/dL (0.8-1.3) L 11/16/20 05:29 Estimated GFR > 60 ml/min 11/16/20 05:29 BUN/Creatinine Ratio 38 % 11/16/20 05:29 Glucose 342 mg/dL (75-100) H 11/16/20 05:29 POC Glucose 284 mg/dL (70-105) H 11/15/20 23:41 Hemoglobin A1c 11.7 % (4-6) H 11/16/20 05:29 Lactic Acid 2.60 mmol/L (0.7-2.0) H* 11/16/20 05:29 Calcium 7.0 mg/dL (8.4-10.2) L 11/16/20 05:29 Ferritin 672.8 ng/mL (30.0-300.0) H 11/15/20 10:39 Total Bilirubin 1.00 mg/dL (0.1-1.2) 11/16/20 05:29 AST 37 units/L (5-40) 11/16/20 05:29 ALT 49 units/L (7-56) 11/16/20 05:29 Alkaline Phosphatase 115 units/L (35-129) 11/16/20 05:29 Lactate Dehydrogenase 663 units/L (91-180) H 11/15/20 10:39 Troponin T < 0.010 ng/mL (0.00-0.029) 11/15/20 10:39 C-Reactive Protein 19.80 mg/dL (0.00-1.30) H 11/15/20 10:39 NT-Pro-B Natriuret Pep 434.3 pg/mL (0-900) 11/16/20 08:47 Total Protein 6.5 g/dL (6.3-8.2) 11/16/20 05:29 Albumin 2.4 g/dL (3.9-5) L 11/16/20 05:29 Albumin/Globulin Ratio 0.6 % 11/16/20 05:29 Procalcitonin 0.51 ng/mL (<0.15) 11/15/20 10:39 Arterial Blood Glucose 248 mg/dL (65-95) H 11/15/20 11:20 Arterial Blood Ionized Calcium 4.1 mg/dL (4.6-5.3) L 11/15/20 11:20 Urine Color [place] (Yellow) 11/16/20 01:45 Urine Turbidity Slightly-cloudy (Clear) 11/16/20 01:45 Urine pH 6.0 (5.0-7.0) 11/16/20 01:45 Ur Specific [place] 1.037 (1.003-1.030) H 11/16/20 01:45 Urine Protein 30 mg/dl mg/dL (Negative) 11/16/20 01:45 Urine Glucose (UA) >=500 mg/dL (Negative) 11/16/20 01:45 Urine Ketones 20 mg/dL (Negative) 11/16/20 01:45 Urine Blood Neg (Negative) 11/16/20 01:45 Urine Nitrite Neg (Negative) 11/16/20 01:45 Urine Bilirubin Neg (Negative) 11/16/20 01:45 Urine Urobilinogen 2.0 mg/dL (<2.0) 11/16/20 01:45 Ur Leukocyte Esterase Neg (Negative) 11/16/20 01:45 Urine WBC (Auto) 2.0 /HPF (0.0-6.0) 11/16/20 01:45 Urine RBC (Auto) 1.0 /HPF (0.0-6.0) 11/16/20 01:45 Urine Bacteria (Auto) 1+ /HPF (Negative) 11/16/20 01:45 Urine Mucus 3+ /HPF 11/16/20 01:45 Microbiology: Microbiology 11/15/20 10:39 Peripheral/Venous Blood Culture - Preliminary Culture in Progress 11/15/20 10:39 Peripheral/Venous Blood Culture - Preliminary Culture in Progress Gupta/IV: Voiding Method Urinal IV Catheter Type [Left Peripheral IV Antecubital] Active Medications - Current Medications Current Medications: Generic Name Dose Route Start Last Admin Trade Name Freq PRN Reason Stop Dose Admin Acetaminophen 650 mg 11/15/20 23:55 Acetaminophen 325 Mg Tab PO Q4H PRN Pain MILD(1-3)/Fever >100.5/BUTTS Dexamethasone 6 mg 11/17/20 08:00 Dexamethasone 4 Mg/Ml Vial IV Q24H RAEANN Enoxaparin Sodium 80 mg 11/16/20 10:00 11/16/20 10:02 Enoxaparin 80 Mg/0.8 Ml Inj SUB-Q 80 mg Q12HR RAEANN Administration Famotidine 20 mg 11/15/20 23:45 11/16/20 10:03 Famotidine 20 Mg Tab PO 20 mg BID RAEANN Administration Hydromorphone HCl 0.5 mg 11/15/20 23:55 Hydromorphone 1 Mg/1 Ml Inj IV Q3H PRN Pain , Severe (7-10) Azithromycin 500 mg in 250 mls @ 250 mls/hr 11/16/20 10:00 11/16/20 10:02 Zithromax/Ns IV 250 mls/hr Q24H RAEANN Administration Ceftriaxone Sodium 2 gm in 100 mls @ 200 mls/hr 11/16/20 10:00 11/16/20 10:03 Rocephin/Ns 2 Gm/100 Ml IV 200 mls/hr Q24HR RAEANN Administration Protocol Insulin Human Lispro 0 unit 11/16/20 07:30 Insulin Lispro 100 Unit/Ml SUB-Q ACHS [facility] Protocol Metoclopramide HCl 10 mg 11/15/20 23:55 Metoclopramide 10 Mg/2 Ml Inj IV Q6H PRN Nausea And Vomiting Ondansetron HCl 4 mg 11/15/20 23:55 Ondansetron 4 Mg/2 Ml Inj IV Q8H PRN Nausea And Vomiting Oxycodone/Acetaminophen 1 tab 11/15/20 23:55 Oxycodone /Acetaminophen 5-325mg Tab PO Q6H PRN Pain, Moderate (4-6) Sodium Chloride 10 ml 11/16/20 10:00 11/16/20 10:04 Sodium Chloride 0.9% 10 Ml Flush Syringe IV 10 ml BID RAEANN Administration Sodium Chloride 10 ml 11/15/20 23:55 Sodium Chloride 0.9% 10 Ml Flush Syringe IV PRN PRN LINE FLUSH
[2020-11-16] MEDS: INSULIN LISPRO 100 UNIT/ML SUB-Q SCH ×3 (10:47→17:08)
--- NOTE | 2020-11-16 12:06 | Consultation ---
History of Present Illness - Reason for Consult Consult date: 11/16/20 COVID PUI Requesting physician: DEMETRIO GONZALEZ - History of Present Illness The patient is a 59-year-old male with cough, fever and shortness of breath going on for about 2 days prior to admission. Upon evaluation in the ER, he was noted to be hypoxic requiring supplemental oxygen. COVID-19 PCR is pending at this time. Labs showed leukocytosis, D-dimer greater than 10,000, ferritin 672, CRP 19.8, LDH 663, creatinine 0.6, procalcitonin 0.51 Review of Systems: reviewed in the chart, unable to obtain, minimize risk of transmission Medications and Allergies Allergies Allergy/AdvReac Type Severity Reaction Status Date / Time No Known Allergies Allergy Verified 11/16/20 00:01 Home Medications Medication Instructions Recorded Confirmed Last Taken Type No Known Home Medications [No 11/15/20 11/15/20 Unknown History Reported Home Medications] Active Meds: Active Medications Acetaminophen (Acetaminophen 325 Mg Tab) 650 mg PO Q4H PRN PRN Reason: Pain MILD(1-3)/Fever >100.5/BUTTS Dexamethasone (Dexamethasone 4 Mg/Ml Vial) 6 mg IV Q24H RAEANN Enoxaparin Sodium (Enoxaparin 80 Mg/0.8 Ml Inj) 80 mg SUB-Q Q12HR [facility] Last Admin: 11/16/20 10:02 Dose: 80 mg Documented by: Famotidine (Famotidine 20 Mg Tab) 20 mg PO BID [facility] Last Admin: 11/16/20 10:03 Dose: 20 mg Documented by: Hydromorphone HCl (Hydromorphone 1 Mg/1 Ml Inj) 0.5 mg IV Q3H PRN PRN Reason: Pain , Severe (7-10) Azithromycin (Zithromax/Ns) 500 mg in 250 mls @ 250 mls/hr IV Q24H RAEANN Last Admin: 11/16/20 10:02 Dose: 250 mls/hr Documented by: Ceftriaxone Sodium (Rocephin/Ns 2 Gm/100 Ml) 2 gm in 100 mls @ 200 mls/hr IV Q24HR [facility]; Protocol Last Admin: 11/16/20 10:03 Dose: 200 mls/hr Documented by: Insulin Human Lispro (Insulin Lispro 100 Unit/Ml) 0 unit SUB-Q ACHS RAEANN; Protocol Last Admin: 11/16/20 10:47 Dose: 8 unit Documented by: Metoclopramide HCl (Metoclopramide 10 Mg/2 Ml Inj) 10 mg IV Q6H PRN PRN Reason: Nausea And Vomiting Ondansetron HCl (Ondansetron 4 Mg/2 Ml Inj) 4 mg IV Q8H PRN PRN Reason: Nausea And Vomiting Oxycodone/Acetaminophen (Oxycodone /Acetaminophen 5-325mg Tab) 1 tab PO Q6H PRN PRN Reason: Pain, Moderate (4-6) Sodium Chloride (Sodium Chloride 0.9% 10 Ml Flush Syringe) 10 ml IV BID [facility] Last Admin: 11/16/20 10:04 Dose: 10 ml Documented by: Sodium Chloride (Sodium Chloride 0.9% 10 Ml Flush Syringe) 10 ml IV PRN PRN PRN Reason: LINE FLUSH Physical Examination - Physical Exam Narrative exam: Physical Exam (reviewed in chart to minimize risk of transmission) Constitutional: deferred Head, Ears, Nose: deferred Eyes: deferred Neck: deferred Oral: deferred Cardiovascular: deferred Respiratory: deferred GI: deferred Musculoskeletal: deferred Skin: deferred Hem/Lymphatic: deferred Psych: deferred Neurological: deferred - Constitutional Vitals: Vital Signs Temp Pulse Resp BP Pulse Ox 98.1 F 70 35 H 118/76 95 11/16/20 08:42 11/16/20 07:59 11/16/20 07:59 11/16/20 07:59 11/16/20 07:59 Temperature -Last 24 Hours Temperature 98.1 F Temperature 98.4 F Temperature 99.0 F Temperature 98.0 F Temperature 99.8 F Results - Labs CBC & Chem 7: 11/16/20 05:29 11/16/20 05:29 Labs: Abnormal lab results 11/15/20 11/15/20 11/16/20 Range/Units 13:41 23:41 01:45 WBC (4.5-11.0) K/mm3 Lymph % (Auto) (13.4-35.0) % Lymph # (Auto) (1.2-5.4) K/mm3 Baso # (Auto) (0.0-0.1) K/mm3 Seg Neutrophils % (40.0-70.0) % Seg Neutrophils # (1.8-7.7) K/mm3 Sodium (137-145) mmol/L Carbon Dioxide (22-30) mmol/L BUN (9-20) mg/dL Creatinine (0.8-1.3) mg/dL Glucose (75-100) mg/dL POC Glucose 284 H (70-105) mg/dL Hemoglobin A1c (4-6) % Lactic Acid 2.30 H* (0.7-2.0) mmol/L Calcium (8.4-10.2) mg/dL Albumin (3.9-5) g/dL Ur Specific [place] 1.037 H (1.003-1.030) 11/16/20 11/16/20 11/16/20 Range/Units 05:29 05:29 05:29 WBC 12.9 H (4.5-11.0) K/mm3 Lymph % (Auto) 4.5 L (13.4-35.0) % Lymph # (Auto) 0.6 L (1.2-5.4) K/mm3 Baso # (Auto) 0.2 H (0.0-0.1) K/mm3 Seg Neutrophils % 89.8 H (40.0-70.0) % Seg Neutrophils # 11.5 H (1.8-7.7) K/mm3 Sodium 131 L (137-145) mmol/L Carbon Dioxide 21 L (22-30) mmol/L BUN 23 H (9-20) mg/dL Creatinine 0.6 L (0.8-1.3) mg/dL Glucose 342 H (75-100) mg/dL POC Glucose (70-105) mg/dL Hemoglobin A1c (4-6) % Lactic Acid 2.60 H* (0.7-2.0) mmol/L Calcium 7.0 L (8.4-10.2) mg/dL Albumin 2.4 L (3.9-5) g/dL Ur Specific [place] (1.003-1.030) 11/16/20 11/16/20 Range/Units 05:29 08:11 WBC (4.5-11.0) K/mm3 Lymph % (Auto) (13.4-35.0) % Lymph # (Auto) (1.2-5.4) K/mm3 Baso # (Auto) (0.0-0.1) K/mm3 Seg Neutrophils % (40.0-70.0) % Seg Neutrophils # (1.8-7.7) K/mm3 Sodium (137-145) mmol/L Carbon Dioxide (22-30) mmol/L BUN (9-20) mg/dL Creatinine (0.8-1.3) mg/dL Glucose (75-100) mg/dL POC Glucose 329 H (70-105) mg/dL Hemoglobin A1c 11.7 H (4-6) % Lactic Acid (0.7-2.0) mmol/L Calcium (8.4-10.2) mg/dL Albumin (3.9-5) g/dL Ur Specific [place] (1.003-1.030) - Imaging and Cardiology Chest x-ray: report reviewed, image reviewed (b/l patchy airspace opacities) Assessment and Plan Cultures: SARS CoV2 PCR: Pending Blood culture: No growth A/P: 59-year-old male: #Bilateral pneumonia: High suspicion for COVID-19. Labs showed leukocytosis, D- dimer greater than 10,000, ferritin 672, CRP 19.8, LDH 663, creatinine 0.6, procalcitonin 0.51 #Acute hypoxic respiratory failure: Requiring BiPAP Recs: -empiric steroids: IV/PO Dexamethasone 6 mg daily x 10 days -Empiric antibiotics for now -High concern for COVID-19, will initiate remdesivir -D-dimer extremely high, agree with evaluation for VTE -prophylactic anticoagulation based on d-dimer per hospital protocol -trend ferritin, LDH, d-dimer, CRP every 2-3 days for risk stratification and to assess disease progression Dayday Driscoll MD, FACP [facility] O: [phone] F: [phone]
--- NOTE | 2020-11-16 16:19 | Vascular Lab Report ---
DUPLEX DOPPLER LOWER EXTREMITY VEINS, BILATERAL INDICATION: dvt. TECHNIQUE: Duplex doppler imaging was performed through the veins of both lower extremities using ve nous compression and other maneuvers. COMPARISON: No relevant prior imaging study available. FINDINGS: Right Common femoral vein: Negative. Right Superficial femoral vein: Negative. Right Popliteal vein: Negative. Right Calf veins: Negative. Left Common femoral vein: Negative. Left Superficial femoral vein: Negative. Left Popliteal vein: Negative. Left Calf veins: Negative. Additional findings: None. IMPRESSION: No sonographic evidence for DVT in either lower extremity. Signer Name: Jaylen Delgado Jr, MD Signed: 11/16/2020 4:13 PM Workstation Name: [id number]
[2020-11-16] MEDS ORDERED: REMDESIVIR 100 MG VIAL IV ONE (17:00)
[2020-11-16] MEDS ORDERED: REMDESIVIR 200 MG in SODIUM CHLORIDE 0.9% 250ML 250 ML IV ONE (17:00)
[2020-11-16] MEDS: SODIUM CHLORIDE 0.9% 50 ML IVPB IV SCH (17:07)
[2020-11-16] MEDS ORDERED: ENOXAPARIN 40 MG/0.4 ML INJ SUB-Q SCH (22:00)
[2020-11-17] MEDS: INSULIN LISPRO 100 UNIT/ML SUB-Q SCH ×5 (01:30→22:39)
[2020-11-17] MEDS: SODIUM CHLORIDE 0.9% 50 ML IVPB IV SCH ×2 (07:44→21:45)
[2020-11-17] MEDS: ENOXAPARIN 80 MG/0.8 ML INJ SUB-Q SCH ×2 (09:45→21:45)
[2020-11-17] MEDS: FAMOTIDINE 20 MG TAB PO SCH ×2 (09:45→21:29)
[2020-11-17] MEDS: AZITHROMYCIN/NS 500 MG/250 ML 500 MG/250 ML BAG IV SCH (09:45)
[2020-11-17] MEDS: dexAMETHasone 4 MG/ML VIAL IV SCH (09:45)
[2020-11-17] MEDS: cefTRIAXone/NS 2 GM/100 ML 2 GM/100 ML BAG IV SCH (10:43)
--- NOTE | 2020-11-17 10:44 | Progress Note ---
Assessment and Plan Assessment and plan: 59-year-old female presents with shortness of breath cough fever weakness. "1 to 2 days. Patient has severe hypoxia per EMS. Her saturations are in the low 80s. With all oxygen and nonrebreather came down to low 90s. Patient denies any past medical history. Exposure to coronavirus present. Does not have a primary care physician. 2/: Patient continues on BiPAP throughout the night. Labs are remarkable for hypoxia with improving renal function but lactic acidosis without fever. CTA has been ordered to rule out pulmonary embolism. I agree with increasing enoxaparin to twice daily full dose for empiric treatment of pulmonary embolism. Will obtain ID consultation on further evaluation for possible underlying pneumonia versus COVID-19. We will also obtain echocardiogram for evaluation. Will discontinue fluids at this time. 2/2; Continue supportive care, Patient remains with very guarded prognosis, remains on BiPAP, continues on Remdesivir, and steroids. Will continue antico agulation, unable to get CTA Chest due to patients unstable clinical status. Will adjust insulin for better blood glucose (1) Acute respiratory failure with hypoxia Current Visit: Yes Status: Acute Plan to address problem: Patient on 40% Ventimask Oxygen supplementation as necessary Pulmonary consult requested (2) Sepsis Current Visit: Yes Status: Acute Plan to address problem: Patient has high lactic acid and high white count consistent with sepsis IV antibiotics for now (3) Bilateral pneumonia Current Visit: Yes Status: Acute Qualifiers: Pneumonia type: due to unspecified organism Lung location: unspecified part of lung Qualified Code(s): J18.9 - Pneumonia, unspecified organism Plan to address problem: Patient initiated on IV ceftriaxone and azithromycin Treat as community-acquired pneumonia for now ID consult requested (4) Suspected 2019 novel coronavirus infection Current Visit: Yes Status: Acute Plan to address problem: Coronavirus PCR requested Patient initiated on IV Decadron 8 mg every 24 (5) Hyponatremia Current Visit: Yes Status: Acute Plan to address problem: Normal saline for 75 cc/h for 12 hours (6) Transaminitis Current Visit: Yes Status: Acute Plan to address problem: Secondary to Covid infection (7) DVT prophylaxis Current Visit: Yes Status: Acute Plan to address problem: On Lovenox and GI prophylaxis (8) Hyperglycemia Current Visit: Yes Status: Acute Plan to address problem: Patient may be having type 2 diabetes which is undiagnosed Check hemoglobin A1c Accu-Cheks for now and coverage for now May need insulin at the time of discharge The high probability of a clinically significant, sudden or life threatening deterioration of the [pulmonary] system(s) required my full and direct attention, intervention and personal management. The aggregate critical care time was [35] minutes. This time is in addition to time spent performing reported procedures but includes the following: [X] Data Review and interpretation [X] Patient assessment and monitoring of vital signs [X] Documentation [X] Medication orders and management History Interval history: Patient seen and examined still with shortness of breath on BiPAP Hospitalist Physical - Physical exam Narrative exam: VITAL SIGNS: Reviewed. GENERAL: The patient appears normally developed, mild to moderate respiratory distress vital signs as documented. HEAD: No signs of head trauma. EYES: Pupils are equal. Extraocular motions intact. EARS: Hearing grossly intact. MOUTH: Oropharynx is normal. NECK: No adenopathy, no JVD. CHEST: Chest with diminished breath sounds bilaterally. No wheezes, rales, or rhonchi. CARDIAC: Regular rate and rhythm. S1 and S2, without murmurs, gallops, or rubs. VASCULAR: No Edema. Peripheral pulses normal and equal in all extremities. ABDOMEN: Soft, non tender and non distended. No rebound or guarding, and no masses palpated. Bowel Sounds normal. MUSCULOSKELETAL: Good range of motion of all major joints. Extremities without clubbing, cyanosis or edema. NEUROLOGIC EXAM: Alert and oriented x 3 No focal sensory or strength deficits. Speech normal. Follows commands. PSYCHIATRIC: Mood normal. SKIN: detail exam as documented in skin assessment - Constitutional Vitals: Temp Pulse Resp BP Pulse Ox 97.3 F L 76 38 H 130/80 91 11/17/20 08:00 11/17/20 10:27 11/17/20 10:27 11/17/20 10:27 11/17/20 10:27 General appearance: Present: mild distress, well-nourished HEART Score - HEART Score Troponin: Troponin T < 0.010 ng/mL (0.00-0.029) 11/15/20 10:39 Results - Labs CBC & Chem 7: 11/16/20 05:29 11/16/20 05:29 Labs: Laboratory Last Values WBC 12.9 K/mm3 (4.5-11.0) H 11/16/20 05:29 RBC 4.74 M/mm3 (3.65-5.03) 11/16/20 05:29 Hgb 14.2 gm/dl (11.8-15.2) 11/16/20 05:29 Hct 41.5 % (35.5-45.6) 11/16/20 05:29 MCV 88 fl (84-94) 11/16/20 05:29 MCH 30 pg (28-32) 11/16/20 05:29 MCHC 34 % (32-34) 11/16/20 05:29 RDW 13.3 % (13.2-15.2) 11/16/20 05:29 Plt Count 146 K/mm3 (140-440) 11/16/20 05:29 Lymph % (Auto) 4.5 % (13.4-35.0) L 11/16/20 05:29 [place] % (Auto) 4.3 % (0.0-7.3) 11/16/20 05:29 Eos % (Auto) 0.0 % (0.0-4.3) 11/16/20 05:29 Baso % (Auto) 1.4 % (0.0-1.8) 11/16/20 05:29 Lymph # (Auto) 0.6 K/mm3 (1.2-5.4) L 11/16/20 05:29 [place] # (Auto) 0.6 K/mm3 (0.0-0.8) 11/16/20 05:29 Eos # (Auto) 0.0 K/mm3 (0.0-0.4) 11/16/20 05:29 Baso # (Auto) 0.2 K/mm3 (0.0-0.1) H 11/16/20 05:29 Seg Neutrophils % 89.8 % (40.0-70.0) H 11/16/20 05:29 Seg Neutrophils # 11.5 K/mm3 (1.8-7.7) H 11/16/20 05:29 D-Dimer > 53498 ng/mlDDU (0-234) H 11/15/20 10:39 ABG pH 7.446 (7.320-7.450) 11/15/20 11:20 POC ABG pCO2 29.9 mmHg (32.0-48.0) L 11/15/20 11:20 POC ABG pO2 137.3 mmHg (83-108) H 11/15/20 11:20 POC ABG HCO3 20.1 11/15/20 11:20 POC ABG Base Excess -2.6 11/15/20 11:20 ABG Hemoglobin 15.0 (12.0-17.5) 11/15/20 11:20 ABG Oxyhemoglobin 96.8 (94-98) 11/15/20 11:20 ABG Methemoglobin 0.3 (0.0-1.5) 11/15/20 11:20 ABG Sodium 126.5 mmol/L (136.0-145.0) L 11/15/20 11:20 ABG Potassium 3.9 mmol/L (3.40-4.50) 11/15/20 11:20 ABG Chloride 100.0 mmol/L (98-107) 11/15/20 11:20 ABG Glucose 248 mg/dL (65-95) H 11/15/20 11:20 Carboxyhemoglobin 1.5 (0.5-1.5) 11/15/20 11:20 FiO2 100.0 11/15/20 11:20 Sodium 131 mmol/L (137-145) L 11/16/20 05:29 Potassium 4.6 mmol/L (3.6-5.0) 11/16/20 05:29 Chloride 100.7 mmol/L (98-107) 11/16/20 05:29 Carbon Dioxide 21 mmol/L (22-30) L 11/16/20 05:29 Anion Gap 14 mmol/L 11/16/20 05:29 BUN 23 mg/dL (9-20) H 11/16/20 05:29 Creatinine 0.6 mg/dL (0.8-1.3) L 11/16/20 05:29 Estimated GFR > 60 ml/min 11/16/20 05:29 BUN/Creatinine Ratio 38 % 11/16/20 05:29 Glucose 342 mg/dL (75-100) H 11/16/20 05:29 POC Glucose 257 mg/dL (70-105) H 11/16/20 16:13 Hemoglobin A1c 11.7 % (4-6) H 11/16/20 05:29 Lactic Acid 2.60 mmol/L (0.7-2.0) H* 11/16/20 05:29 Calcium 7.0 mg/dL (8.4-10.2) L 11/16/20 05:29 Ferritin 672.8 ng/mL (30.0-300.0) H 11/15/20 10:39 Total Bilirubin 1.00 mg/dL (0.1-1.2) 11/16/20 05:29 AST 37 units/L (5-40) 11/16/20 05:29 ALT 49 units/L (7-56) 11/16/20 05:29 Alkaline Phosphatase 115 units/L (35-129) 11/16/20 05:29 Lactate Dehydrogenase 663 units/L (91-180) H 11/15/20 10:39 Troponin T < 0.010 ng/mL (0.00-0.029) 11/15/20 10:39 C-Reactive Protein 19.80 mg/dL (0.00-1.30) H 11/15/20 10:39 NT-Pro-B Natriuret Pep 434.3 pg/mL (0-900) 11/16/20 08:47 Total Protein 6.5 g/dL (6.3-8.2) 11/16/20 05:29 Albumin 2.4 g/dL (3.9-5) L 11/16/20 05:29 Albumin/Globulin Ratio 0.6 % 11/16/20 05:29 Procalcitonin 0.51 ng/mL (<0.15) 11/15/20 10:39 Arterial Blood Glucose 248 mg/dL (65-95) H 11/15/20 11:20 Arterial Blood Ionized Calcium 4.1 mg/dL (4.6-5.3) L 11/15/20 11:20 Urine Color [place] (Yellow) 11/16/20 01:45 Urine Turbidity Slightly-cloudy (Clear) 11/16/20 01:45 Urine pH 6.0 (5.0-7.0) 11/16/20 01:45 Ur Specific [place] 1.037 (1.003-1.030) H 11/16/20 01:45 Urine Protein 30 mg/dl mg/dL (Negative) 11/16/20 01:45 Urine Glucose (UA) >=500 mg/dL (Negative) 11/16/20 01:45 Urine Ketones 20 mg/dL (Negative) 11/16/20 01:45 Urine Blood Neg (Negative) 11/16/20 01:45 Urine Nitrite Neg (Negative) 11/16/20 01:45 Urine Bilirubin Neg (Negative) 11/16/20 01:45 Urine Urobilinogen 2.0 mg/dL (<2.0) 11/16/20 01:45 Ur Leukocyte Esterase Neg (Negative) 11/16/20 01:45 Urine WBC (Auto) 2.0 /HPF (0.0-6.0) 11/16/20 01:45 Urine RBC (Auto) 1.0 /HPF (0.0-6.0) 11/16/20 01:45 Urine Bacteria (Auto) 1+ /HPF (Negative) 11/16/20 01:45 Urine Mucus 3+ /HPF 11/16/20 01:45 Coronavirus (PCR) Positive (Negative) A 11/16/20 Unknown Microbiology: Microbiology 11/15/20 10:39 Peripheral/Venous Blood Culture - Preliminary NO GROWTH AFTER 24 HOURS 11/15/20 10:39 Peripheral/Venous Blood Culture - Preliminary NO GROWTH AFTER 24 HOURS Gupta/IV: Voiding Method Urinal IV Catheter Type [Left Peripheral IV Antecubital] Active Medications - Current Medications Current Medications: Generic Name Dose Route Start Last Admin Trade Name Freq PRN Reason Stop Dose Admin Acetaminophen 650 mg 11/15/20 23:55 Acetaminophen 325 Mg Tab PO Q4H PRN Pain MILD(1-3)/Fever >100.5/BUTTS Dexamethasone 6 mg 11/17/20 08:00 11/17/20 09:45 Dexamethasone 4 Mg/Ml Vial IV 11/26/20 08:01 6 mg Q24H RAEANN Administration Enoxaparin Sodium 80 mg 11/16/20 10:00 11/17/20 09:45 Enoxaparin 80 Mg/0.8 Ml Inj SUB-Q 80 mg Q12HR RAEANN Administration Famotidine 20 mg 11/15/20 23:45 11/17/20 09:45 Famotidine 20 Mg Tab PO 20 mg BID RAEANN Administration Hydromorphone HCl 0.5 mg 11/15/20 23:55 Hydromorphone 1 Mg/1 Ml Inj IV Q3H PRN Pain , Severe (7-10) Azithromycin 500 mg in 250 mls @ 250 mls/hr 11/16/20 10:00 11/17/20 09:45 Zithromax/Ns IV 250 mls/hr Q24H RAEANN Administration Ceftriaxone Sodium 2 gm in 100 mls @ 200 mls/hr 11/16/20 10:00 11/17/20 10:43 Rocephin/Ns 2 Gm/100 Ml IV 200 mls/hr Q24HR RAEANN Administration Protocol REMDESIVIR 100 mg/ Sodium 250 mls @ 500 mls/hr 11/17/20 21:00 Chloride IV 11/20/20 21:29 Q24HR@2100 [facility] Insulin Human Lispro 0 unit 11/16/20 07:30 11/17/20 09:45 Insulin Lispro 100 Unit/Ml SUB-Q 4 unit ACHS [facility] Administration Protocol Metoclopramide HCl 10 mg 11/15/20 23:55 Metoclopramide 10 Mg/2 Ml Inj IV Q6H PRN Nausea And Vomiting Ondansetron HCl 4 mg 11/15/20 23:55 Ondansetron 4 Mg/2 Ml Inj IV Q8H PRN Nausea And Vomiting Oxycodone/Acetaminophen 1 tab 11/15/20 23:55 Oxycodone /Acetaminophen 5-325mg Tab PO Q6H PRN Pain, Moderate (4-6) Sodium Chloride 10 ml 11/16/20 10:00 11/17/20 09:46 Sodium Chloride 0.9% 10 Ml Flush Syringe IV 10 ml BID RAEANN Administration Sodium Chloride 10 ml 11/15/20 23:55 Sodium Chloride 0.9% 10 Ml Flush Syringe IV PRN PRN LINE FLUSH Sodium Chloride 50 ml 11/16/20 17:00 11/17/20 07:44 Sodium Chloride 0.9% 50 Ml Ivpb IV 11/19/20 21:01 Not Given Q24HR@2100 RAEANN
--- NOTE | 2020-11-17 11:49 | Progress Note ---
Assessment and Plan 59 y/o male with acute respiratory failure, abnormal CXR and abnormal lab studies. 11/17/20: Continue bipap therapy. Monitor mental state. High risk for Intubation. Continue BID anticoagulation. Prone if able. BNP was elevated but no grossly elevated. Will still give lasix with hopes of achieving net negative state. STeroids and remdesivir. Overall prognosis is guarded, extremely guarded. 1. Pulm- Agree with concern for covid. Agree with empiric abx but procal is only mildly elevated. Await cultures. Continue bipap therapy for now but will need to monitor closely. [facility] has ordered CTA, but I spoke with pharmacy and we will empirically treat with BID lovenox therapy. COntinue empiric steroid therapy for COVID until studies back. Not sure that he will be able to prone on bipap therapy. MOnitor volume status and run as dry as possible. 2. Renal-normal function but all electrolytes abnormal. HYponatremia and Hy pochloremia volume up vs volume down. Sent BNP. Would suggest obtaning echo as well. Not sure what to make of elevated lactate unless that is from increased work of breathing or damage to other tissue unknown. May need to check LFT's and Coags as well. 3. Guarded Prognosis. Subjective Date of service: 11/17/20 Interval history: Patient is COVID positive. Now on continuous bipap therapy. Tachypnic as well. Objective Vital Signs - 12hr 11/17/20 11/17/20 11/17/20 00:00 01:00 02:00 Temperature Pulse Rate 82 78 77 Pulse Rate [ 89 From Monitor] Respiratory 42 H 44 H 45 H Rate Blood Pressure 129/82 123/77 121/79 O2 Sat by Pulse 91 91 91 Oximetry 11/17/20 11/17/20 11/17/20 03:00 04:00 05:00 Temperature Pulse Rate 92 H 75 77 Pulse Rate [ 77 From Monitor] Respiratory 41 H 41 H 44 H Rate Blood Pressure 122/79 125/78 124/84 O2 Sat by Pulse 91 93 91 Oximetry 11/17/20 11/17/20 11/17/20 06:00 07:00 08:00 Temperature 97.3 F L Pulse Rate 75 77 78 Pulse Rate [ 78 From Monitor] Respiratory 43 H 39 H 43 H Rate Blood Pressure 123/81 127/87 130/81 O2 Sat by Pulse 92 90 94 Oximetry 11/17/20 11/17/20 11/17/20 09:00 10:00 10:27 Temperature Pulse Rate 76 85 76 Pulse Rate [ From Monitor] Respiratory 38 H 47 H 38 H Rate Blood Pressure 134/87 131/83 130/80 O2 Sat by Pulse 90 95 91 Oximetry 11/17/20 11:00 Temperature Pulse Rate 83 Pulse Rate [ From Monitor] Respiratory 40 H Rate Blood Pressure 122/78 O2 Sat by Pulse 97 Oximetry Constitutional: alert ENT: other (full face mask bipap being worn) Ascultation: Bilateral: rales Percussion: Bilateral: not dull Cardiovascular: regular rate and rhythm Gastrointestinal: soft, non-tender CBC and BMP: 11/16/20 05:29 11/16/20 05:29 ABG, PT/INR, D-dimer: ABG ABG pH 7.446 (7.320-7.450) 11/15/20 11:20 POC ABG pCO2 29.9 mmHg (32.0-48.0) L 11/15/20 11:20 POC ABG pO2 137.3 mmHg (83-108) H 11/15/20 11:20 POC ABG HCO3 20.1 11/15/20 11:20 PT/INR, D-dimer D-Dimer > 86739 ng/mlDDU (0-234) H 11/15/20 10:39 Abnormal lab findings: Abnormal Labs 11/15/20 11/15/20 11/15/20 10:39 10:39 10:39 WBC 14.3 H RBC 5.17 H Lymph % (Auto) 7.8 L [place] % (Auto) 7.6 H Lymph # (Auto) 1.1 L [place] # (Auto) 1.1 H Baso # (Auto) Seg Neutrophils % 83.3 H Seg Neutrophils # 11.9 H D-Dimer POC ABG pCO2 POC ABG pO2 ABG Sodium ABG Glucose Sodium 128 L Chloride 96.0 L Carbon Dioxide BUN Creatinine 0.7 L Glucose 238 H POC Glucose Hemoglobin A1c Lactic Acid 4.10 H* Calcium 7.0 L Ferritin Total Bilirubin 1.40 H AST 49 H ALT 70 H Lactate Dehydrogenase 663 H C-Reactive Protein 19.80 H Albumin 2.9 L Arterial Blood Glucose Arterial Blood Ionized Calcium Ur Specific [place] Coronavirus (PCR) 11/15/20 11/15/2021 10:39 10:39 11:20 WBC RBC Lymph % (Auto) [place] % (Auto) Lymph # (Auto) [place] # (Auto) Baso # (Auto) Seg Neutrophils % Seg Neutrophils # D-Dimer > 27545 H POC ABG pCO2 29.9 L POC ABG pO2 137.3 H ABG Sodium 126.5 L ABG Glucose 248 H Sodium Chloride Carbon Dioxide BUN Creatinine Glucose POC Glucose Hemoglobin A1c Lactic Acid Calcium Ferritin 672.8 H Total Bilirubin AST ALT Lactate Dehydrogenase C-Reactive Protein Albumin Arterial Blood Glucose 248 H Arterial Blood Ionized Calcium 4.1 L Ur Specific [place] Coronavirus (PCR) 11/15/20 11/15/20 11/16/20 13:41 23:41 01:45 WBC RBC Lymph % (Auto) [place] % (Auto) Lymph # (Auto) [place] # (Auto) Baso # (Auto) Seg Neutrophils % Seg Neutrophils # D-Dimer POC ABG pCO2 POC ABG pO2 ABG Sodium ABG Glucose Sodium Chloride Carbon Dioxide BUN Creatinine Glucose POC Glucose 284 H Hemoglobin A1c Lactic Acid 2.30 H* Calcium Ferritin Total Bilirubin AST ALT Lactate Dehydrogenase C-Reactive Protein Albumin Arterial Blood Glucose Arterial Blood Ionized Calcium Ur Specific [place] 1.037 H Coronavirus (PCR) 11/16/20 11/16/20 11/16/20 05:29 05:29 05:29 WBC 12.9 H RBC Lymph % (Auto) 4.5 L [place] % (Auto) Lymph # (Auto) 0.6 L [place] # (Auto) Baso # (Auto) 0.2 H Seg Neutrophils % 89.8 H Seg Neutrophils # 11.5 H D-Dimer POC ABG pCO2 POC ABG pO2 ABG Sodium ABG Glucose Sodium 131 L Chloride Carbon Dioxide 21 L BUN 23 H Creatinine 0.6 L Glucose 342 H POC Glucose Hemoglobin A1c Lactic Acid 2.60 H* Calcium 7.0 L Ferritin Total Bilirubin AST ALT Lactate Dehydrogenase C-Reactive Protein Albumin 2.4 L Arterial Blood Glucose Arterial Blood Ionized Calcium Ur Specific [place] Coronavirus (PCR) 11/16/20 11/16/20 11/16/20 05:29 08:11 12:11 WBC RBC Lymph % (Auto) [place] % (Auto) Lymph # (Auto) [place] # (Auto) Baso # (Auto) Seg Neutrophils % Seg Neutrophils # D-Dimer POC ABG pCO2 POC ABG pO2 ABG Sodium ABG Glucose Sodium Chloride Carbon Dioxide BUN Creatinine Glucose POC Glucose 329 H 320 H Hemoglobin A1c 11.7 H Lactic Acid Calcium Ferritin Total Bilirubin AST ALT Lactate Dehydrogenase C-Reactive Protein Albumin Arterial Blood Glucose Arterial Blood Ionized Calcium Ur Specific [place] Coronavirus (PCR) 11/16/20 11/16/20 16:13 Unknown WBC RBC Lymph % (Auto) [place] % (Auto) Lymph # (Auto) [place] # (Auto) Baso # (Auto) Seg Neutrophils % Seg Neutrophils # D-Dimer POC ABG pCO2 POC ABG pO2 ABG Sodium ABG Glucose Sodium Chloride Carbon Dioxide BUN Creatinine Glucose POC Glucose 257 H Hemoglobin A1c Lactic Acid Calcium Ferritin Total Bilirubin AST ALT Lactate Dehydrogenase C-Reactive Protein Albumin Arterial Blood Glucose Arterial Blood Ionized Calcium Ur Specific [place] Coronavirus (PCR) Positive A
--- NOTE | 2020-11-17 15:30 | Progress Note ---
Assessment and Plan Cultures: SARS CoV2 PCR: positive Blood culture: No growth A/P: 59-year-old male: #Bilateral pneumonia: secondary to COVID-19. Labs showed leukocytosis, D-dimer greater than 10,000, ferritin 672, CRP 19.8, LDH 663, creatinine 0.6, procalcitonin 0.51 #Acute hypoxic respiratory failure: Requiring BiPAP Recs: -continue steroids: IV/PO Dexamethasone 6 mg daily x 10 days -complete short course of abx -continue remdesivir, D2 -D-dimer extremely high, agree with evaluation for VTE -prophylactic anticoagulation based on d-dimer per hospital protocol -trend ferritin, LDH, d-dimer, CRP every 2-3 days for risk stratification and to assess disease progression Dayday Driscoll MD, FACP [facility] O: [phone] F: [phone] Subjective Date of service: 11/17/20 Interval history: No fever. Remains on BiPAP. COVID-19 positive. Objective - Exam Narrative Exam: Physical Exam (reviewed in chart to minimize risk of transmission) Constitutional: deferred Head, Ears, Nose: deferred Eyes: deferred Neck: deferred Oral: deferred Cardiovascular: deferred Respiratory: deferred GI: deferred Musculoskeletal: deferred Skin: deferred Hem/Lymphatic: deferred Psych: deferred Neurological: deferred - Constitutional Vitals: Vital Signs Temp Pulse Resp BP Pulse Ox 97.3 F L 83 40 H 122/78 97 11/17/20 08:00 11/17/20 11:00 11/17/20 11:00 11/17/20 11:00 11/17/20 11:00 Temperature -Last 24 Hours Temperature 97.3 F Temperature 98 F Temperature 98.4 F - Labs CBC & Chem 7: 11/16/20 05:29 11/16/20 05:29 Labs: Abnormal lab results 11/16/20 11/16/20 11/17/20 Range/Units 16:13 21:29 07:42 POC Glucose 257 H 376 H 231 H (70-105) mg/dL 11/17/20 Range/Units 12:07 POC Glucose 380 H (70-105) mg/dL
[2020-11-17] MEDS ORDERED: FUROSEMIDE 40 MG/4 ML INJ IV ONE (17:00)
[2020-11-17] MEDS: REMDESIVIR 100 MG in SODIUM CHLORIDE 0.9% 250ML 250 ML IV SCH (21:26)
[2020-11-18 05:42] LABS: Alanine Aminotransferase 55 units/L (7-56); Albumin 2.3 g/dL (3.9-5); Blood Urea Nitrogen 24 mg/dL (9-20); Calcium 7.4 mg/dL (8.4-10.2); Hemolysis Index 3
[2020-11-18 05:43] LABS: BUN/Creatinine Ratio 40
[2020-11-18] MEDS: INSULIN GLARGINE 100 UNITS/ML SUB-Q SCH ×2 (06:06→22:20)
[2020-11-18] MEDS: INSULIN LISPRO 100 UNIT/ML SUB-Q SCH ×4 (08:04→23:30)
--- NOTE | 2020-11-18 09:09 | Progress Note ---
Assessment and Plan Assessment and plan: 59-year-old female presents with shortness of breath cough fever weakness. "1 to 2 days. Patient has severe hypoxia per EMS. Her saturations are in the low 80s. With all oxygen and nonrebreather came down to low 90s. Patient denies any past medical history. Exposure to coronavirus present. Does not have a primary care physician. 2/1: Patient continues on BiPAP throughout the night. Labs are remarkable for hypoxia with improving renal function but lactic acidosis without fever. CTA has been ordered to rule out pulmonary embolism. I agree with increasing enoxaparin to twice daily full dose for empiric treatment of pulmonary embolism. Will obtain ID consultation on further evaluation for possible underlying pneumonia versus COVID-19. We will also obtain echocardiogram for evaluation. Will discontinue fluids at this time. 2/2; Continue supportive care, Patient remains with very guarded prognosis, remains on BiPAP, continues on Remdesivir, and steroids. Will continue antico agulation, unable to get CTA Chest due to patients unstable clinical status. Will adjust insulin for better blood glucose 2/3: Continues on BIPAP, no clear improvement at this time. Will continue richelle roids therapy Remdesivir and also Full anticoagulation at this time. Will update family. Discussed with [facility] [employer]. (1) Acute respiratory failure with hypoxia Current Visit: Yes Status: Acute Plan to address problem: Patient on 40% Ventimask Oxygen supplementation as necessary Pulmonary consult requested (2) Sepsis Current Visit: Yes Status: Acute Plan to address problem: Patient has high lactic acid and high white count consistent with sepsis IV antibiotics for now (3) Bilateral pneumonia Current Visit: Yes Status: Acute Qualifiers: Pneumonia type: due to unspecified organism Lung location: unspecified part of lung Qualified Code(s): J18.9 - Pneumonia, unspecified organism Plan to address problem: Patient initiated on IV ceftriaxone and azithromycin Treat as community-acquired pneumonia for now ID consult requested (4) Suspected 2019 novel coronavirus infection Current Visit: Yes Status: Acute Plan to address problem: Coronavirus PCR requested Patient initiated on IV Decadron 8 mg every 24 (5) Hyponatremia Current Visit: Yes Status: Acute Plan to address problem: Normal saline for 75 cc/h for 12 hours (6) Transaminitis Current Visit: Yes Status: Acute Plan to address problem: Secondary to Covid infection (7) DVT prophylaxis Current Visit: Yes Status: Acute Plan to address problem: On Lovenox and GI prophylaxis (8) Hyperglycemia Current Visit: Yes Status: Acute Plan to address problem: Patient may be having type 2 diabetes which is undiagnosed Check hemoglobin A1c Accu-Cheks for now and coverage for now May need insulin at the time of discharge The high probability of a clinically significant, sudden or life threatening deterioration of the [pulmonary] system(s) required my full and direct attention, intervention and personal management. The aggregate critical care time was [35] minutes. This time is in addition to time spent performing reported procedures but includes the following: [X] Data Review and interpretation [X] Patient assessment and monitoring of vital signs [X] Documentation [X] Medication orders and management History Interval history: Patient seen and examined still with shortness of breath on BiPAP Hospitalist Physical - Physical exam Narrative exam: VITAL SIGNS: Reviewed. GENERAL: The patient appears normally developed, Still moderate respiratory distress vital signs as documented. HEAD: No signs of head trauma. EYES: Pupils are equal. Extraocular motions intact. EARS: Hearing grossly intact. MOUTH: Oropharynx is normal. NECK: No adenopathy, no JVD. CHEST: Chest with diminished breath sounds bilaterally. No wheezes, rales, or rhonchi. CARDIAC: Regular rate and rhythm. S1 and S2, without murmurs, gallops, or rubs. VASCULAR: No Edema. Peripheral pulses normal and equal in all extremities. ABDOMEN: Soft, non tender and non distended. No rebound or guarding, and no masses palpated. Bowel Sounds normal. MUSCULOSKELETAL: Good range of motion of all major joints. Extremities without clubbing, cyanosis or edema. NEUROLOGIC EXAM: Alert and oriented x 3 No focal sensory or strength deficits. Speech normal. Follows commands. PSYCHIATRIC: Mood normal. SKIN: detail exam as documented in skin assessment - Constitutional Vitals: Temp Pulse Resp BP Pulse Ox 98.3 F 79 37 H 129/82 92 11/18/20 08:00 11/18/20 08:23 11/18/20 08:23 11/18/20 08:23 11/18/20 08:23 General appearance: Present: mild distress, well-nourished HEART Score - HEART Score Troponin: Troponin T < 0.010 ng/mL (0.00-0.029) 11/15/20 10:39 Results - Labs CBC & Chem 7: 11/16/20 05:29 11/19/20 05:35 Labs: Laboratory Last Values WBC 12.9 K/mm3 (4.5-11.0) H 11/16/20 05:29 RBC 4.74 M/mm3 (3.65-5.03) 11/16/20 05:29 Hgb 14.2 gm/dl (11.8-15.2) 11/16/20 05:29 Hct 41.5 % (35.5-45.6) 11/16/20 05:29 MCV 88 fl (84-94) 11/16/20 05:29 MCH 30 pg (28-32) 11/16/20 05:29 MCHC 34 % (32-34) 11/16/20 05:29 RDW 13.3 % (13.2-15.2) 11/16/20 05:29 Plt Count 146 K/mm3 (140-440) 11/16/20 05:29 Lymph % (Auto) 4.5 % (13.4-35.0) L 11/16/20 05:29 [place] % (Auto) 4.3 % (0.0-7.3) 11/16/20 05:29 Eos % (Auto) 0.0 % (0.0-4.3) 11/16/20 05:29 Baso % (Auto) 1.4 % (0.0-1.8) 11/16/20 05:29 Lymph # (Auto) 0.6 K/mm3 (1.2-5.4) L 11/16/20 05:29 [place] # (Auto) 0.6 K/mm3 (0.0-0.8) 11/16/20 05:29 Eos # (Auto) 0.0 K/mm3 (0.0-0.4) 11/16/20 05:29 Baso # (Auto) 0.2 K/mm3 (0.0-0.1) H 11/16/20 05:29 Seg Neutrophils % 89.8 % (40.0-70.0) H 11/16/20 05:29 Seg Neutrophils # 11.5 K/mm3 (1.8-7.7) H 11/16/20 05:29 D-Dimer > 72185 ng/mlDDU (0-234) H 11/15/20 10:39 ABG pH 7.446 (7.320-7.450) 11/15/20 11:20 POC ABG pCO2 29.9 mmHg (32.0-48.0) L 11/15/20 11:20 POC ABG pO2 137.3 mmHg (83-108) H 11/15/20 11:20 POC ABG HCO3 20.1 11/15/20 11:20 POC ABG Base Excess -2.6 11/15/20 11:20 ABG Hemoglobin 15.0 (12.0-17.5) 11/15/20 11:20 ABG Oxyhemoglobin 96.8 (94-98) 11/15/20 11:20 ABG Methemoglobin 0.3 (0.0-1.5) 11/15/20 11:20 ABG Sodium 126.5 mmol/L (136.0-145.0) L 11/15/20 11:20 ABG Potassium 3.9 mmol/L (3.40-4.50) 11/15/20 11:20 ABG Chloride 100.0 mmol/L (98-107) 11/15/20 11:20 ABG Glucose 248 mg/dL (65-95) H 11/15/20 11:20 Carboxyhemoglobin 1.5 (0.5-1.5) 11/15/20 11:20 FiO2 100.0 11/15/20 11:20 Sodium 136 mmol/L (137-145) L 11/18/20 04:25 Potassium 4.2 mmol/L (3.6-5.0) 11/18/20 04:25 Chloride 101.1 mmol/L (98-107) 11/18/20 04:25 Carbon Dioxide 25 mmol/L (22-30) 11/18/20 04:25 Anion Gap 14 mmol/L 11/18/20 04:25 BUN 24 mg/dL (9-20) H 11/18/20 04:25 Creatinine 0.6 mg/dL (0.8-1.3) L 11/18/20 04:25 Estimated GFR > 60 ml/min 11/18/20 04:25 BUN/Creatinine Ratio 40 % 11/18/20 04:25 Glucose 212 mg/dL (75-100) H 11/18/20 04:25 POC Glucose 293 mg/dL (70-105) H 11/17/20 21:53 Hemoglobin A1c 11.7 % (4-6) H 11/16/20 05:29 Lactic Acid 2.60 mmol/L (0.7-2.0) H* 11/16/20 05:29 Calcium 7.4 mg/dL (8.4-10.2) L 11/18/20 04:25 Ferritin 672.8 ng/mL (30.0-300.0) H 11/15/20 10:39 Total Bilirubin 0.80 mg/dL (0.1-1.2) 11/18/20 04:25 AST 41 units/L (5-40) H 11/18/20 04:25 ALT 55 units/L (7-56) 11/18/20 04:25 Alkaline Phosphatase 142 units/L (35-129) H 11/18/20 04:25 Lactate Dehydrogenase 663 units/L (91-180) H 11/15/20 10:39 Troponin T < 0.010 ng/mL (0.00-0.029) 11/15/20 10:39 C-Reactive Protein 19.80 mg/dL (0.00-1.30) H 11/15/20 10:39 NT-Pro-B Natriuret Pep 107.2 pg/mL (0-900) 11/17/20 10:21 Total Protein 6.5 g/dL (6.3-8.2) 11/18/20 04:25 Albumin 2.3 g/dL (3.9-5) L 11/18/20 04:25 Albumin/Globulin Ratio 0.5 % 11/18/20 04:25 Procalcitonin 0.51 ng/mL (<0.15) 11/15/20 10:39 Arterial Blood Glucose 248 mg/dL (65-95) H 11/15/20 11:20 Arterial Blood Ionized Calcium 4.1 mg/dL (4.6-5.3) L 11/15/20 11:20 Urine Color [place] (Yellow) 11/16/20 01:45 Urine Turbidity Slightly-cloudy (Clear) 11/16/20 01:45 Urine pH 6.0 (5.0-7.0) 11/16/20 01:45 Ur Specific [place] 1.037 (1.003-1.030) H 11/16/20 01:45 Urine Protein 30 mg/dl mg/dL (Negative) 11/16/20 01:45 Urine Glucose (UA) >=500 mg/dL (Negative) 11/16/20 01:45 Urine Ketones 20 mg/dL (Negative) 11/16/20 01:45 Urine Blood Neg (Negative) 11/16/20 01:45 Urine Nitrite Neg (Negative) 11/16/20 01:45 Urine Bilirubin Neg (Negative) 11/16/20 01:45 Urine Urobilinogen 2.0 mg/dL (<2.0) 11/16/20 01:45 Ur Leukocyte Esterase Neg (Negative) 11/16/20 01:45 Urine WBC (Auto) 2.0 /HPF (0.0-6.0) 11/16/20 01:45 Urine RBC (Auto) 1.0 /HPF (0.0-6.0) 11/16/20 01:45 Urine Bacteria (Auto) 1+ /HPF (Negative) 11/16/20 01:45 Urine Mucus 3+ /HPF 11/16/20 01:45 Coronavirus (PCR) Positive (Negative) A 11/16/20 Unknown Microbiology: Microbiology 11/15/20 10:39 Peripheral/Venous Blood Culture - Preliminary NO GROWTH AFTER 48 HOURS 11/15/20 10:39 Peripheral/Venous Blood Culture - Preliminary NO GROWTH AFTER 48 HOURS Gupta/IV: Voiding Method Urinal IV Catheter Type [Left Peripheral IV Antecubital] Active Medications - Current Medications Current Medications: Generic Name Dose Route Start Last Admin Trade Name Freq PRN Reason Stop Dose Admin Acetaminophen 650 mg 11/15/20 23:55 Acetaminophen 325 Mg Tab PO Q4H PRN Pain MILD(1-3)/Fever >100.5/BUTTS Dexamethasone 6 mg 11/17/20 08:00 11/17/20 09:45 Dexamethasone 4 Mg/Ml Vial IV 11/26/20 08:01 6 mg Q24H RAEANN Administration Enoxaparin Sodium 80 mg 11/16/20 10:00 11/17/20 21:45 Enoxaparin 80 Mg/0.8 Ml Inj SUB-Q 80 mg Q12HR RAEANN Administration Famotidine 20 mg 11/15/20 23:45 11/17/20 21:29 Famotidine 20 Mg Tab PO 20 mg BID RAEANN Administration Hydromorphone HCl 0.5 mg 11/15/20 23:55 Hydromorphone 1 Mg/1 Ml Inj IV Q3H PRN Pain , Severe (7-10) Azithromycin 500 mg in 250 mls @ 250 mls/hr 11/16/20 10:00 11/17/20 09:45 Zithromax/Ns IV 11/20/20 10:59 250 mls/hr Q24H RAEANN Administration Ceftriaxone Sodium 2 gm in 100 mls @ 200 mls/hr 11/16/20 10:00 11/17/20 10:43 Rocephin/Ns 2 Gm/100 Ml IV 11/20/20 10:29 200 mls/hr Q24HR RAEANN Administration Protocol REMDESIVIR 100 mg/ Sodium 250 mls @ 500 mls/hr 11/17/20 21:00 11/17/20 21:26 Chloride IV 11/20/20 21:29 500 mls/hr Q24HR@2100 RAEANN Administration Insulin Glargine 20 units 11/17/20 23:00 11/18/20 06:06 Insulin Glargine 100 Units/Ml SUB-Q 20 units QHS RAEANN Administration Insulin Human Lispro 0 unit 11/16/20 07:30 11/17/20 22:39 Insulin Lispro 100 Unit/Ml SUB-Q 6 unit ACHS RAEANN Administration Protocol Metoclopramide HCl 10 mg 11/15/20 23:55 Metoclopramide 10 Mg/2 Ml Inj IV Q6H PRN Nausea And Vomiting Ondansetron HCl 4 mg 11/15/20 23:55 Ondansetron 4 Mg/2 Ml Inj IV Q8H PRN Nausea And Vomiting Oxycodone/Acetaminophen 1 tab 11/15/20 23:55 Oxycodone /Acetaminophen 5-325mg Tab PO Q6H PRN Pain, Moderate (4-6) Sodium Chloride 10 ml 11/16/20 10:00 11/17/20 21:28 Sodium Chloride 0.9% 10 Ml Flush Syringe IV 10 ml BID RAEANN Administration Sodium Chloride 10 ml 11/15/20 23:55 Sodium Chloride 0.9% 10 Ml Flush Syringe IV PRN PRN LINE FLUSH Sodium Chloride 50 ml 11/16/20 17:00 11/17/20 21:45 Sodium Chloride 0.9% 50 Ml Ivpb IV 11/19/20 21:01 50 ml Q24HR@2100 RAEANN Administration
[2020-11-18] MEDS: dexAMETHasone 4 MG/ML VIAL IV SCH (11:50)
[2020-11-18] MEDS: ENOXAPARIN 80 MG/0.8 ML INJ SUB-Q SCH ×2 (11:51→22:18)
[2020-11-18] MEDS: cefTRIAXone/NS 2 GM/100 ML 2 GM/100 ML BAG IV SCH (11:51)
[2020-11-18] MEDS: FAMOTIDINE 20 MG TAB PO SCH ×2 (11:56→22:19)
[2020-11-18] MEDS: AZITHROMYCIN/NS 500 MG/250 ML 500 MG/250 ML BAG IV SCH (11:58)
--- NOTE | 2020-11-18 12:01 | Progress Note ---
Assessment and Plan 59 y/o male with acute respiratory failure, abnormal CXR and abnormal lab studies. 11/18/20: Continue bipap, goal is to attempt to prevent prolong intubation for as long as possible. Lasix again today. Steroids and Remdesivir. Guarded P rognosis. 11/17/20: Continue bipap therapy. Monitor mental state. High risk for Intubation. Continue BID anticoagulation. Prone if able. BNP was elevated but not grossly elevated. Will still give lasix with hopes of achieving net negative state. STeroids and remdesivir. Overall prognosis is guarded, extremely guarded. 1. Pulm- Agree with concern for covid. Agree with empiric abx but procal is only mildly elevated. Await cultures. Continue bipap therapy for now but will need to monitor closely. [facility] has ordered CTA, but I spoke with pharmacy and we will empirically treat with BID lovenox therapy. COntinue empiric steroid therapy for COVID until studies back. Not sure that he will be able to prone on bipap therapy. MOnitor volume status and run as dry as possible. 2. Renal-normal function but all electrolytes abnormal. HYponatremia and Hypochloremia volume up vs volume down. Sent BNP. Would suggest obtaning echo as well. Not sure what to make of elevated lactate unless that is from increased work of breathing or damage to other tissue unknown. May need to check LFT's and Coags as well. 3. Guarded Prognosis. Subjective Date of service: 11/18/20 Interval history: Remains on Bipap at 100%. Awake. WOB is labored. Objective Vital Signs - 12hr 11/18/20 11/18/20 11/18/20 00:00 01:00 02:00 Temperature 97.6 F Pulse Rate 65 68 64 Pulse Rate [ 68 From Monitor] Respiratory 35 H 41 H 32 H Rate Blood Pressure 118/76 125/78 121/75 O2 Sat by Pulse 94 97 91 Oximetry 11/18/20 11/18/20 11/18/20 03:00 04:00 05:00 Temperature 97.5 F L Pulse Rate 61 62 70 Pulse Rate [ 58 L From Monitor] Respiratory 30 H 26 H 34 H Rate Blood Pressure 121/75 114/73 118/78 O2 Sat by Pulse 94 92 93 Oximetry 11/18/20 11/18/20 11/18/20 05:03 06:00 08:00 Temperature 98.3 F Pulse Rate 75 72 Pulse Rate [ From Monitor] Respiratory 35 H 37 H Rate Blood Pressure 118/78 114/87 O2 Sat by Pulse 94 94 Oximetry 11/18/20 08:23 Temperature Pulse Rate 79 Pulse Rate [ From Monitor] Respiratory 37 H Rate Blood Pressure 129/82 O2 Sat by Pulse 92 Oximetry Constitutional: alert ENT: other (full face mask bipap being worn) Ascultation: Bilateral: rales Percussion: Bilateral: not dull Cardiovascular: regular rate and rhythm Gastrointestinal: soft, non-tender CBC and BMP: 11/16/20 05:29 11/18/20 04:25 ABG, PT/INR, D-dimer: ABG ABG pH 7.446 (7.320-7.450) 11/15/20 11:20 POC ABG pCO2 29.9 mmHg (32.0-48.0) L 11/15/20 11:20 POC ABG pO2 137.3 mmHg (83-108) H 11/15/20 11:20 POC ABG HCO3 20.1 11/15/20 11:20 PT/INR, D-dimer D-Dimer > 13167 ng/mlDDU (0-234) H 11/15/20 10:39 Abnormal lab findings: Abnormal Labs 11/15/20 11/15/20 11/15/20 10:39 10:39 10:39 WBC 14.3 H RBC 5.17 H Lymph % (Auto) 7.8 L [place] % (Auto) 7.6 H Lymph # (Auto) 1.1 L [place] # (Auto) 1.1 H Baso # (Auto) Seg Neutrophils % 83.3 H Seg Neutrophils # 11.9 H D-Dimer POC ABG pCO2 POC ABG pO2 ABG Sodium ABG Glucose Sodium 128 L Chloride 96.0 L Carbon Dioxide BUN Creatinine 0.7 L Glucose 238 H POC Glucose Hemoglobin A1c Lactic Acid 4.10 H* Calcium 7.0 L Ferritin Total Bilirubin 1.40 H AST 49 H ALT 70 H Alkaline Phosphatase Lactate Dehydrogenase 663 H C-Reactive Protein 19.80 H Albumin 2.9 L Arterial Blood Glucose Arterial Blood Ionized Calcium Ur Specific [place] Coronavirus (PCR) 11/15/20 11/15/20 11/15/20 10:39 10:39 11:20 WBC RBC Lymph % (Auto) [place] % (Auto) Lymph # (Auto) [place] # (Auto) Baso # (Auto) Seg Neutrophils % Seg Neutrophils # D-Dimer > 74076 H POC ABG pCO2 29.9 L POC ABG pO2 137.3 H ABG Sodium 126.5 L ABG Glucose 248 H Sodium Chloride Carbon Dioxide BUN Creatinine Glucose POC Glucose Hemoglobin A1c Lactic Acid Calcium Ferritin 672.8 H Total Bilirubin AST ALT Alkaline Phosphatase Lactate Dehydrogenase C-Reactive Protein Albumin Arterial Blood Glucose 248 H Arterial Blood Ionized Calcium 4.1 L Ur Specific [place] Coronavirus (PCR) 11/15/20 11/15/20 11/16/20 13:41 23:41 01:45 WBC RBC Lymph % (Auto) [place] % (Auto) Lymph # (Auto) [place] # (Auto) Baso # (Auto) Seg Neutrophils % Seg Neutrophils # D-Dimer POC ABG pCO2 POC ABG pO2 ABG Sodium ABG Glucose Sodium Chloride Carbon Dioxide BUN Creatinine Glucose POC Glucose 284 H Hemoglobin A1c Lactic Acid 2.30 H* Calcium Ferritin Total Bilirubin AST ALT Alkaline Phosphatase Lactate Dehydrogenase C-Reactive Protein Albumin Arterial Blood Glucose Arterial Blood Ionized Calcium Ur Specific [place] 1.037 H Coronavirus (PCR) 11/16/20 11/16/20 11/16/20 05:29 05:29 05:29 WBC 12.9 H RBC Lymph % (Auto) 4.5 L [place] % (Auto) Lymph # (Auto) 0.6 L [place] # (Auto) Baso # (Auto) 0.2 H Seg Neutrophils % 89.8 H Seg Neutrophils # 11.5 H D-Dimer POC ABG pCO2 POC ABG pO2 ABG Sodium ABG Glucose Sodium 131 L Chloride Carbon Dioxide 21 L BUN 23 H Creatinine 0.6 L Glucose 342 H POC Glucose Hemoglobin A1c Lactic Acid 2.60 H* Calcium 7.0 L Ferritin Total Bilirubin AST ALT Alkaline Phosphatase Lactate Dehydrogenase C-Reactive Protein Albumin 2.4 L Arterial Blood Glucose Arterial Blood Ionized Calcium Ur Specific [place] Coronavirus (PCR) 11/16/20 11/16/20 11/16/20 05:29 08:11 12:11 WBC RBC Lymph % (Auto) [place] % (Auto) Lymph # (Auto) [place] # (Auto) Baso # (Auto) Seg Neutrophils % Seg Neutrophils # D-Dimer POC ABG pCO2 POC ABG pO2 ABG Sodium ABG Glucose Sodium Chloride Carbon Dioxide BUN Creatinine Glucose POC Glucose 329 H 320 H Hemoglobin A1c 11.7 H Lactic Acid Calcium Ferritin Total Bilirubin AST ALT Alkaline Phosphatase Lactate Dehydrogenase C-Reactive Protein Albumin Arterial Blood Glucose Arterial Blood Ionized Calcium Ur Specific [place] Coronavirus (PCR) 11/16/20 11/16/20 11/16/20 16:13 21:29 Unknown WBC RBC Lymph % (Auto) [place] % (Auto) Lymph # (Auto) [place] # (Auto) Baso # (Auto) Seg Neutrophils % Seg Neutrophils # D-Dimer POC ABG pCO2 POC ABG pO2 ABG Sodium ABG Glucose Sodium Chloride Carbon Dioxide BUN Creatinine Glucose POC Glucose 257 H 376 H Hemoglobin A1c Lactic Acid Calcium Ferritin Total Bilirubin AST ALT Alkaline Phosphatase Lactate Dehydrogenase C-Reactive Protein Albumin Arterial Blood Glucose Arterial Blood Ionized Calcium Ur Specific [place] Coronavirus (PCR) Positive A 11/17/20 11/17/20 11/17/20 07:42 12:07 17:25 WBC RBC Lymph % (Auto) [place] % (Auto) Lymph # (Auto) [place] # (Auto) Baso # (Auto) Seg Neutrophils % Seg Neutrophils # D-Dimer POC ABG pCO2 POC ABG pO2 ABG Sodium ABG Glucose Sodium Chloride Carbon Dioxide BUN Creatinine Glucose POC Glucose 231 H 380 H 302 H Hemoglobin A1c Lactic Acid Calcium Ferritin Total Bilirubin AST ALT Alkaline Phosphatase Lactate Dehydrogenase C-Reactive Protein Albumin Arterial Blood Glucose Arterial Blood Ionized Calcium Ur Specific [place] Coronavirus (PCR) 11/17/20 11/18/20 11/18/20 21:53 04:25 07:45 WBC RBC Lymph % (Auto) [place] % (Auto) Lymph # (Auto) [place] # (Auto) Baso # (Auto) Seg Neutrophils % Seg Neutrophils # D-Dimer POC ABG pCO2 POC ABG pO2 ABG Sodium ABG Glucose Sodium 136 L Chloride Carbon Dioxide BUN 24 H Creatinine 0.6 L Glucose 212 H POC Glucose 293 H 216 H Hemoglobin A1c Lactic Acid Calcium 7.4 L Ferritin Total Bilirubin AST 41 H ALT Alkaline Phosphatase 142 H Lactate Dehydrogenase C-Reactive Protein Albumin 2.3 L Arterial Blood Glucose Arterial Blood Ionized Calcium Ur Specific [place] Coronavirus (PCR)
--- NOTE | 2020-11-18 15:19 | Progress Note ---
Assessment and Plan Cultures: SARS CoV2 PCR: positive Blood culture: No growth A/P: 59-year-old male: #Bilateral pneumonia: secondary to COVID-19. Labs showed leukocytosis, D-dimer greater than 10,000, ferritin 672, CRP 19.8, LDH 663, creatinine 0.6, procalcitonin 0.51 #Acute hypoxic respiratory failure: Requiring BiPAP #Elevated d-dimer #Transaminitis: secondary to COVID-19. Recs: -continue steroids: IV/PO Dexamethasone 6 mg daily x 10 days -complete short course of abx -continue remdesivir, D3 -D-dimer high, DVT scan negative -prophylactic anticoagulation based on d-dimer per hospital protocol -trend ferritin, LDH, d-dimer, CRP every 2-3 days for risk stratification and to assess disease progression Dayday Driscoll MD, FACP [facility] ([facility] O: [phone] F: [phone] Subjective Date of service: 11/18/20 Interval history: No fever. Remains on BiPAP. Objective - Exam Narrative Exam: Physical Exam (reviewed in chart to minimize risk of transmission) Constitutional: deferred Head, Ears, Nose: deferred Eyes: deferred Neck: deferred Oral: deferred Cardiovascular: deferred Respiratory: deferred GI: deferred Musculoskeletal: deferred Skin: deferred Hem/Lymphatic: deferred Psych: deferred Neurological: deferred - Constitutional Vitals: Vital Signs Temp Pulse Resp BP Pulse Ox 98.3 F 71 31 H 131/84 91 11/18/20 08:00 11/18/20 12:00 11/18/20 12:00 11/18/20 12:00 11/18/20 12:00 Temperature -Last 24 Hours Temperature 98.3 F Temperature 97.5 F Temperature 97.6 F Temperature 98.2 F Temperature 97.5 F - Labs CBC & Chem 7: 11/16/20 05:29 11/18/20 04:25 Labs: Abnormal lab results 11/17/20 11/17/20 11/18/20 Range/Units 17:25 21:53 04:25 Sodium 136 L (137-145) mmol/L BUN 24 H (9-20) mg/dL Creatinine 0.6 L (0.8-1.3) mg/dL Glucose 212 H (75-100) mg/dL POC Glucose 302 H 293 H (70-105) mg/dL Calcium 7.4 L (8.4-10.2) mg/dL AST 41 H (5-40) units/L Alkaline Phosphatase 142 H (35-129) units/L Albumin 2.3 L (3.9-5) g/dL 11/18/20 11/18/20 Range/Units 07:45 12:28 Sodium (137-145) mmol/L BUN (9-20) mg/dL Creatinine (0.8-1.3) mg/dL Glucose (75-100) mg/dL POC Glucose 216 H 165 H (70-105) mg/dL Calcium (8.4-10.2) mg/dL AST (5-40) units/L Alkaline Phosphatase (35-129) units/L Albumin (3.9-5) g/dL
[2020-11-18] MEDS: REMDESIVIR 100 MG in SODIUM CHLORIDE 0.9% 250ML 250 ML IV SCH (22:18)
[2020-11-18] MEDS: SODIUM CHLORIDE 0.9% 50 ML IVPB IV SCH (22:18)
[2020-11-18] MEDS: ACETAMINOPHEN 325 MG TAB PO PRN (22:19)
[2020-11-19 06:36] LABS: Alanine Aminotransferase 45 units/L (7-56); Albumin 2.4 g/dL (3.9-5); Blood Urea Nitrogen 25 mg/dL (9-20); Calcium 7.5 mg/dL (8.4-10.2); Hemolysis Index 6
[2020-11-19 06:37] LABS: BUN/Creatinine Ratio 50
--- NOTE | 2020-11-19 08:30 | Progress Note ---
Assessment and Plan Assessment and plan: 59-year-old female presents with shortness of breath cough fever weakness. "1 to 2 days. Patient has severe hypoxia per EMS. Her saturations are in the low 80s. With all oxygen and nonrebreather came down to low 90s. Patient denies any past medical history. Exposure to coronavirus present. Does not have a primary care physician. 2/1: Patient continues on BiPAP throughout the night. Labs are remarkable for hypoxia with improving renal function but lactic acidosis without fever. CTA has been ordered to rule out pulmonary embolism. I agree with increasing enoxaparin to twice daily full dose for empiric treatment of pulmonary embolism. Will obtain ID consultation on further evaluation for possible underlying pneumonia versus COVID-19. We will also obtain echocardiogram for evaluation. Will discontinue fluids at this time. 2/2; Continue supportive care, Patient remains with very guarded prognosis, remains on BiPAP, continues on Remdesivir, and steroids. Will continue antico agulation, unable to get CTA Chest due to patients unstable clinical status. Will adjust insulin for better blood glucose 2/3: Continues on BIPAP, no clear improvement at this time. Will continue richelle roids therapy Remdesivir and also Full anticoagulation at this time. Will update family. Discussed with [employer]. 2: Taking a break from the BiPAP on high flow and nonrebreather 100% with saturation of 90% becomes hypoxic with any movement. [employer] input noted will get a dose of Lasix today. Will await a discussion with ID for possibly increasing steroid. I updated Patient's Cousin, Tayla Esquivel who is the emergency personnel psychologist. Blood sugar remains fluctuating secondary to steriods, Encouraged Prone positioning. Noted with mild hyponatremia we will continue to monitor and manage (1) Acute respiratory failure with hypoxia Current Visit: Yes Status: Acute Plan to address problem: Patient on 40% Ventimask Oxygen supplementation as necessary Pulmonary consult requested (2) Sepsis Current Visit: Yes Status: Acute Plan to address problem: Patient has high lactic acid and high white count consistent with sepsis IV antibiotics for now (3) Bilateral pneumonia Current Visit: Yes Status: Acute Qualifiers: Pneumonia type: due to unspecified organism Lung location: unspecified part of lung Qualified Code(s): J18.9 - Pneumonia, unspecified organism Plan to address problem: Patient initiated on IV ceftriaxone and azithromycin Treat as community-acquired pneumonia for now ID consult requested (4) 2019 novel coronavirus infection Current Visit: Yes Status: Acute Plan to address problem: Coronavirus PCR requested Patient initiated on IV Decadron 8 mg every 24 (5) Hyponatremia Current Visit: Yes Status: Acute Plan to address problem: Normal saline for 75 cc/h for 12 hours (6) Transaminitis Current Visit: Yes Status: Acute Plan to address problem: Secondary to Covid infection (7) DVT prophylaxis Current Visit: Yes Status: Acute Plan to address problem: On Lovenox and GI prophylaxis (8) Hyperglycemia Current Visit: Yes Status: Acute Plan to address problem: Patient may be having type 2 diabetes which is undiagnosed Check hemoglobin A1c Accu-Cheks for now and coverage for now May need insulin at the time of discharge The high probability of a clinically significant, sudden or life threatening deterioration of the [pulmonary] system(s) required my full and direct attention, intervention and personal management. The aggregate critical care time was [35] minutes. This time is in addition to time spent performing reported procedures but includes the following: [X] Data Review and interpretation [X] Patient assessment and monitoring of vital signs [X] Documentation [X] Medication orders and management History Interval history: Patient seen and examined still with shortness of breath this morning, following commands patient was on high flow and also nonrebreather. Hospitalist Physical - Physical exam Narrative exam: VITAL SIGNS: Reviewed. GENERAL: The patient appears normally developed, Still moderate respiratory distress vital signs as documented. HEAD: No signs of head trauma. EYES: Pupils are equal. Extraocular motions intact. EARS: Hearing grossly intact. MOUTH: Oropharynx is normal. NECK: No adenopathy, no JVD. CHEST: Chest with diminished breath sounds bilaterally. No wheezes, rales, or rhonchi. CARDIAC: Regular rate and rhythm. S1 and S2, without murmurs, gallops, or rubs. VASCULAR: No Edema. Peripheral pulses normal and equal in all extremities. ABDOMEN: Soft, non tender and non distended. No rebound or guarding, and no masses palpated. Bowel Sounds normal. MUSCULOSKELETAL: Good range of motion of all major joints. Extremities without clubbing, cyanosis or edema. NEUROLOGIC EXAM: Alert and oriented x 3 No focal sensory or strength deficits. Speech normal. Follows commands. PSYCHIATRIC: Mood normal. SKIN: detail exam as documented in skin assessment - Constitutional Vitals: Temp Pulse Resp BP Pulse Ox 97.5 F L 64 28 H 125/85 96 11/19/20 04:00 11/19/20 07:00 11/19/20 07:00 11/19/20 07:00 11/19/20 07:00 General appearance: Present: mild distress, well-nourished HEART Score - HEART Score Troponin: Troponin T < 0.010 ng/mL (0.00-0.029) 11/15/20 10:39 Results - Labs CBC & Chem 7: 11/16/20 05:29 11/19/20 05:35 Labs: Laboratory Last Values WBC 12.9 K/mm3 (4.5-11.0) H 11/16/20 05:29 RBC 4.74 M/mm3 (3.65-5.03) 11/16/20 05:29 Hgb 14.2 gm/dl (11.8-15.2) 11/16/20 05:29 Hct 41.5 % (35.5-45.6) 11/16/20 05:29 MCV 88 fl (84-94) 11/16/20 05:29 MCH 30 pg (28-32) 11/16/20 05:29 MCHC 34 % (32-34) 11/16/20 05:29 RDW 13.3 % (13.2-15.2) 11/16/20 05:29 Plt Count 146 K/mm3 (140-440) 11/16/20 05:29 Lymph % (Auto) 4.5 % (13.4-35.0) L 11/16/20 05:29 Bates % (Auto) 4.3 % (0.0-7.3) 11/16/20 05:29 Eos % (Auto) 0.0 % (0.0-4.3) 11/16/20 05:29 Baso % (Auto) 1.4 % (0.0-1.8) 11/16/20 05:29 Lymph # (Auto) 0.6 K/mm3 (1.2-5.4) L 11/16/20 05:29 Bates # (Auto) 0.6 K/mm3 (0.0-0.8) 11/16/20 05:29 Eos # (Auto) 0.0 K/mm3 (0.0-0.4) 11/16/20 05:29 Baso # (Auto) 0.2 K/mm3 (0.0-0.1) H 11/16/20 05:29 Seg Neutrophils % 89.8 % (40.0-70.0) H 11/16/20 05:29 Seg Neutrophils # 11.5 K/mm3 (1.8-7.7) H 11/16/20 05:29 D-Dimer > 84754 ng/mlDDU (0-234) H 11/15/20 10:39 ABG pH 7.446 (7.320-7.450) 11/15/20 11:20 POC ABG pCO2 29.9 mmHg (32.0-48.0) L 11/15/20 11:20 POC ABG pO2 137.3 mmHg (83-108) H 11/15/20 11:20 POC ABG HCO3 20.1 11/15/20 11:20 POC ABG Base Excess -2.6 11/15/20 11:20 ABG Hemoglobin 15.0 (12.0-17.5) 11/15/20 11:20 ABG Oxyhemoglobin 96.8 (94-98) 11/15/20 11:20 ABG Methemoglobin 0.3 (0.0-1.5) 11/15/20 11:20 ABG Sodium 126.5 mmol/L (136.0-145.0) L 11/15/20 11:20 ABG Potassium 3.9 mmol/L (3.40-4.50) 11/15/20 11:20 ABG Chloride 100.0 mmol/L (98-107) 11/15/20 11:20 ABG Glucose 248 mg/dL (65-95) H 11/15/20 11:20 Carboxyhemoglobin 1.5 (0.5-1.5) 11/15/20 11:20 FiO2 100.0 11/15/20 11:20 Sodium 132 mmol/L (137-145) L 11/19/20 05:35 Potassium 4.4 mmol/L (3.6-5.0) 11/19/20 05:35 Chloride 99.8 mmol/L (98-107) 11/19/20 05:35 Carbon Dioxide 22 mmol/L (22-30) 11/19/20 05:35 Anion Gap 15 mmol/L 11/19/20 05:35 BUN 25 mg/dL (9-20) H 11/19/20 05:35 Creatinine 0.5 mg/dL (0.8-1.3) L 11/19/20 05:35 Estimated GFR > 60 ml/min 11/19/20 05:35 BUN/Creatinine Ratio 50 % 11/19/20 05:35 Glucose 179 mg/dL (75-100) H 11/19/20 05:35 POC Glucose 149 mg/dL (70-105) H 11/19/20 07:40 Hemoglobin A1c 11.7 % (4-6) H 11/16/20 05:29 Lactic Acid 2.60 mmol/L (0.7-2.0) H* 11/16/20 05:29 Calcium 7.5 mg/dL (8.4-10.2) L 11/19/20 05:35 Ferritin 672.8 ng/mL (30.0-300.0) H 11/15/20 10:39 Total Bilirubin 0.90 mg/dL (0.1-1.2) 11/19/20 05:35 AST 33 units/L (5-40) 11/19/20 05:35 ALT 45 units/L (7-56) 11/19/20 05:35 Alkaline Phosphatase 139 units/L (35-129) H 11/19/20 05:35 Lactate Dehydrogenase 663 units/L (91-180) H 11/15/20 10:39 Troponin T < 0.010 ng/mL (0.00-0.029) 11/15/20 10:39 C-Reactive Protein 19.80 mg/dL (0.00-1.30) H 11/15/20 10:39 NT-Pro-B Natriuret Pep 107.2 pg/mL (0-900) 11/17/20 10:21 Total Protein 6.5 g/dL (6.3-8.2) 11/19/20 05:35 Albumin 2.4 g/dL (3.9-5) L 11/19/20 05:35 Albumin/Globulin Ratio 0.6 % 11/19/20 05:35 Procalcitonin 0.51 ng/mL (<0.15) 11/15/20 10:39 Arterial Blood Glucose 248 mg/dL (65-95) H 11/15/20 11:20 Arterial Blood Ionized Calcium 4.1 mg/dL (4.6-5.3) L 11/15/20 11:20 Urine Color Faustina (Yellow) 11/16/20 01:45 Urine Turbidity Slightly-cloudy (Clear) 11/16/20 01:45 Urine pH 6.0 (5.0-7.0) 11/16/20 01:45 Ur Specific [place] 1.037 (1.003-1.030) H 11/16/20 01:45 Urine Protein 30 mg/dl mg/dL (Negative) 11/16/20 01:45 Urine Glucose (UA) >=500 mg/dL (Negative) 11/16/20 01:45 Urine Ketones 20 mg/dL (Negative) 11/16/20 01:45 Urine Blood Neg (Negative) 11/16/20 01:45 Urine Nitrite Neg (Negative) 11/16/20 01:45 Urine Bilirubin Neg (Negative) 11/16/20 01:45 Urine Urobilinogen 2.0 mg/dL (<2.0) 11/16/20 01:45 Ur Leukocyte Esterase Neg (Negative) 11/16/20 01:45 Urine WBC (Auto) 2.0 /HPF (0.0-6.0) 11/16/20 01:45 Urine RBC (Auto) 1.0 /HPF (0.0-6.0) 11/16/20 01:45 Urine Bacteria (Auto) 1+ /HPF (Negative) 11/16/20 01:45 Urine Mucus 3+ /HPF 11/16/20 01:45 Coronavirus (PCR) Positive (Negative) A 11/16/20 Unknown Microbiology: Microbiology 11/15/20 10:39 Peripheral/Venous Blood Culture - Preliminary NO GROWTH AFTER 72 HOURS 11/15/20 10:39 Peripheral/Venous Blood Culture - Preliminary NO GROWTH AFTER 72 HOURS Gupta/IV: Voiding Method Urinal IV Catheter Type [Left Peripheral IV Antecubital] Active Medications - Current Medications Current Medications: Generic Name Dose Route Start Last Admin Trade Name Freq PRN Reason Stop Dose Admin Acetaminophen 650 mg 11/15/20 23:55 11/18/20 22:19 Acetaminophen 325 Mg Tab PO 650 mg Q4H PRN Administration Pain MILD(1-3)/Fever >100.5/BUTTS Dexamethasone 6 mg 11/17/20 08:00 11/18/20 11:50 Dexamethasone 4 Mg/Ml Vial IV 11/26/20 08:01 6 mg Q24H RAEANN Administration Enoxaparin Sodium 80 mg 11/16/20 10:00 11/18/20 22:18 Enoxaparin 80 Mg/0.8 Ml Inj SUB-Q 80 mg Q12HR RAEANN Administration Famotidine 20 mg 11/15/20 23:45 11/18/20 22:19 Famotidine 20 Mg Tab PO 20 mg BID RAEANN Administration Hydromorphone HCl 0.5 mg 11/15/20 23:55 Hydromorphone 1 Mg/1 Ml Inj IV Q3H PRN Pain , Severe (7-10) Azithromycin 500 mg in 250 mls @ 250 mls/hr 11/16/20 10:00 11/18/20 11:58 Zithromax/Ns IV 11/20/20 10:59 250 mls/hr Q24H RAEANN Administration Ceftriaxone Sodium 2 gm in 100 mls @ 200 mls/hr 11/16/20 10:00 11/18/20 11:51 Rocephin/Ns 2 Gm/100 Ml IV 11/20/20 10:29 200 mls/hr Q24HR RAEANN Administration Protocol REMDESIVIR 100 mg/ Sodium 250 mls @ 500 mls/hr 11/17/20 21:00 11/18/20 22:18 Chloride IV 11/20/20 21:29 500 mls/hr Q24HR@2100 RAEANN Administration Insulin Glargine 20 units 11/17/20 23:00 11/18/20 22:20 Insulin Glargine 100 Units/Ml SUB-Q 20 units QHS RAEANN Administration Insulin Human Lispro 0 unit 11/16/20 07:30 11/18/20 23:30 Insulin Lispro 100 Unit/Ml SUB-Q 8 unit ACHS RAEANN Administration Protocol Metoclopramide HCl 10 mg 11/15/20 23:55 Metoclopramide 10 Mg/2 Ml Inj IV Q6H PRN Nausea And Vomiting Ondansetron HCl 4 mg 11/15/20 23:55 Ondansetron 4 Mg/2 Ml Inj IV Q8H PRN Nausea And Vomiting Oxycodone/Acetaminophen 1 tab 11/15/20 23:55 Oxycodone /Acetaminophen 5-325mg Tab PO Q6H PRN Pain, Moderate (4-6) Sodium Chloride 10 ml 11/16/20 10:00 11/18/20 22:20 Sodium Chloride 0.9% 10 Ml Flush Syringe IV 10 ml BID RAEANN Administration Sodium Chloride 10 ml 11/15/20 23:55 Sodium Chloride 0.9% 10 Ml Flush Syringe IV PRN PRN LINE FLUSH Sodium Chloride 50 ml 11/16/20 17:00 11/18/20 22:18 Sodium Chloride 0.9% 50 Ml Ivpb IV 11/19/20 21:01 50 ml Q24HR@2100 RAEANN Administration
[2020-11-19] MEDS: INSULIN LISPRO 100 UNIT/ML SUB-Q SCH ×4 (08:50→21:59)
[2020-11-19] MEDS: dexAMETHasone 4 MG/ML VIAL IV SCH (09:01)
[2020-11-19] MEDS: FAMOTIDINE 20 MG TAB PO SCH ×2 (09:01→22:30)
[2020-11-19] MEDS: AZITHROMYCIN/NS 500 MG/250 ML 500 MG/250 ML BAG IV SCH (09:03)
--- NOTE | 2020-11-19 09:03 | Progress Note ---
Assessment and Plan 59 y/o male with acute respiratory failure, abnormal CXR and abnormal lab studies. 11/19/20: lasix 40mg IV x1 today. Will speak with ID but may consider increasing steroids to see if this will help with oxygenation. Continue Remdesivir. Prognosis remains guarded. 11/18/20: Continue bipap, goal is to attempt to prevent prolong intubation for as long as possible. Lasix again today. Steroids and Remdesivir. Guarded Prognosis. 11/17/20: Continue bipap therapy. Monitor mental state. High risk for Intubation. Continue BID anticoagulation. Prone if able. BNP was elevated but not grossly elevated. Will still give lasix with hopes of achieving net negative state. STeroids and remdesivir. Overall prognosis is guarded, extre ewa guarded. 1. Pulm- Agree with concern for covid. Agree with empiric abx but procal is only mildly elevated. Await cultures. Continue bipap therapy for now but will need to monitor closely. [facility] has ordered CTA, but I spoke with pharmacy and we will empirically treat with BID lovenox therapy. COntinue empiric steroid therapy for COVID until studies back. Not sure that he will be able to prone on bipap therapy. MOnitor volume status and run as dry as possible. 2. Renal-normal function but all electrolytes abnormal. HYponatremia and Hypochloremia volume up vs volume down. Sent BNP. Would suggest obtaning echo as well. Not sure what to make of elevated lactate unless that is from increased work of breathing or damage to other tissue unknown. May need to check LFT's and Coags as well. 3. Guarded Prognosis. Subjective Date of service: 11/19/20 Interval history: Still not able to wean from Bipap. Remains on 100%. BP stable. I/O showing negative fluid balance. Did not give lasix yesterday. Objective Vital Signs - 12hr 11/18/20 11/18/20 11/18/20 22:00 22:19 23:00 Temperature Pulse Rate 81 70 Pulse Rate [ From Monitor] Respiratory 40 H 38 H 38 H Rate Respiratory 40 H Rate [ Generalized] Blood Pressure 123/79 127/80 O2 Sat by Pulse 93 93 Oximetry 11/18/20 11/18/20 11/19/20 23:19 23:41 00:00 Temperature 98.4 F Pulse Rate 61 66 Pulse Rate [ 66 From Monitor] Respiratory 35 H 36 H Rate Respiratory Rate [ Generalized] Blood Pressure 113/78 O2 Sat by Pulse 95 Oximetry 11/19/20 11/19/20 11/19/20 00:01 01:00 02:00 Temperature Pulse Rate 67 64 57 L Pulse Rate [ From Monitor] Respiratory 37 H 34 H 26 H Rate Respiratory Rate [ Generalized] Blood Pressure 113/78 116/77 101/64 O2 Sat by Pulse 94 95 94 Oximetry 11/19/20 11/19/20 11/19/20 03:01 04:00 04:32 Temperature 97.5 F L Pulse Rate 62 58 L 62 Pulse Rate [ 58 L From Monitor] Respiratory 34 H 26 H 32 H Rate Respiratory Rate [ Generalized] Blood Pressure 111/73 116/77 O2 Sat by Pulse 94 97 95 Oximetry 11/19/20 11/19/20 11/19/20 05:01 06:00 07:00 Temperature Pulse Rate 73 63 64 Pulse Rate [ From Monitor] Respiratory 32 H 36 H 28 H Rate Respiratory Rate [ Generalized] Blood Pressure 113/67 122/81 125/85 O2 Sat by Pulse 100 92 96 Oximetry Constitutional: alert ENT: other (full face mask bipap being worn) Ascultation: Bilateral: rales Percussion: Bilateral: not dull Cardiovascular: regular rate and rhythm Gastrointestinal: soft, non-tender CBC and BMP: 11/16/20 05:29 11/19/20 05:35 ABG, PT/INR, D-dimer: ABG ABG pH 7.446 (7.320-7.450) 11/15/20 11:20 POC ABG pCO2 29.9 mmHg (32.0-48.0) L 11/15/20 11:20 POC ABG pO2 137.3 mmHg (83-108) H 11/15/20 11:20 POC ABG HCO3 20.1 11/15/20 11:20 PT/INR, D-dimer D-Dimer > 03645 ng/mlDDU (0-234) H 11/15/20 10:39 Abnormal lab findings: Abnormal Labs 11/15/20 11/15/20 11/15/20 10:39 10:39 10:39 WBC 14.3 H RBC 5.17 H Lymph % (Auto) 7.8 L [place] % (Auto) 7.6 H Lymph # (Auto) 1.1 L [place] # (Auto) 1.1 H Baso # (Auto) Seg Neutrophils % 83.3 H Seg Neutrophils # 11.9 H D-Dimer POC ABG pCO2 POC ABG pO2 ABG Sodium ABG Glucose Sodium 128 L Chloride 96.0 L Carbon Dioxide BUN Creatinine 0.7 L Glucose 238 H POC Glucose Hemoglobin A1c Lactic Acid 4.10 H* Calcium 7.0 L Ferritin Total Bilirubin 1.40 H AST 49 H ALT 70 H Alkaline Phosphatase Lactate Dehydrogenase 663 H C-Reactive Protein 19.80 H Albumin 2.9 L Arterial Blood Glucose Arterial Blood Ionized Calcium Ur Specific [place] Coronavirus (PCR) 11/15/20 11/15/20 11/15/20 10:39 10:39 11:20 WBC RBC Lymph % (Auto) [place] % (Auto) Lymph # (Auto) [place] # (Auto) Baso # (Auto) Seg Neutrophils % Seg Neutrophils # D-Dimer > 18900 H POC ABG pCO2 29.9 L POC ABG pO2 137.3 H ABG Sodium 126.5 L ABG Glucose 248 H Sodium Chloride Carbon Dioxide BUN Creatinine Glucose POC Glucose Hemoglobin A1c Lactic Acid Calcium Ferritin 672.8 H Total Bilirubin AST ALT Alkaline Phosphatase Lactate Dehydrogenase C-Reactive Protein Albumin Arterial Blood Glucose 248 H Arterial Blood Ionized Calcium 4.1 L Ur Specific [place] Coronavirus (PCR) 11/15/20 11/15/20 11/16/20 13:41 23:41 01:45 WBC RBC Lymph % (Auto) [place] % (Auto) Lymph # (Auto) [place] # (Auto) Baso # (Auto) Seg Neutrophils % Seg Neutrophils # D-Dimer POC ABG pCO2 POC ABG pO2 ABG Sodium ABG Glucose Sodium Chloride Carbon Dioxide BUN Creatinine Glucose POC Glucose 284 H Hemoglobin A1c Lactic Acid 2.30 H* Calcium Ferritin Total Bilirubin AST ALT Alkaline Phosphatase Lactate Dehydrogenase C-Reactive Protein Albumin Arterial Blood Glucose Arterial Blood Ionized Calcium Ur Specific [place] 1.037 H Coronavirus (PCR) 11/16/20 11/16/20 11/16/20 05:29 05:29 05:29 WBC 12.9 H RBC Lymph % (Auto) 4.5 L [place] % (Auto) Lymph # (Auto) 0.6 L [place] # (Auto) Baso # (Auto) 0.2 H Seg Neutrophils % 89.8 H Seg Neutrophils # 11.5 H D-Dimer POC ABG pCO2 POC ABG pO2 ABG Sodium ABG Glucose Sodium 131 L Chloride Carbon Dioxide 21 L BUN 23 H Creatinine 0.6 L Glucose 342 H POC Glucose Hemoglobin A1c Lactic Acid 2.60 H* Calcium 7.0 L Ferritin Total Bilirubin AST ALT Alkaline Phosphatase Lactate Dehydrogenase C-Reactive Protein Albumin 2.4 L Arterial Blood Glucose Arterial Blood Ionized Calcium Ur Specific [place] Coronavirus (PCR) 11/16/20 11/16/20 11/16/20 05:29 08:11 12:11 WBC RBC Lymph % (Auto) [place] % (Auto) Lymph # (Auto) [place] # (Auto) Baso # (Auto) Seg Neutrophils % Seg Neutrophils # D-Dimer POC ABG pCO2 POC ABG pO2 ABG Sodium ABG Glucose Sodium Chloride Carbon Dioxide BUN Creatinine Glucose POC Glucose 329 H 320 H Hemoglobin A1c 11.7 H Lactic Acid Calcium Ferritin Total Bilirubin AST ALT Alkaline Phosphatase Lactate Dehydrogenase C-Reactive Protein Albumin Arterial Blood Glucose Arterial Blood Ionized Calcium Ur Specific [place] Coronavirus (PCR) 11/16/20 11/16/20 11/16/20 16:13 21:29 Unknown WBC RBC Lymph % (Auto) [place] % (Auto) Lymph # (Auto) [place] # (Auto) Baso # (Auto) Seg Neutrophils % Seg Neutrophils # D-Dimer POC ABG pCO2 POC ABG pO2 ABG Sodium ABG Glucose Sodium Chloride Carbon Dioxide BUN Creatinine Glucose POC Glucose 257 H 376 H Hemoglobin A1c Lactic Acid Calcium Ferritin Total Bilirubin AST ALT Alkaline Phosphatase Lactate Dehydrogenase C-Reactive Protein Albumin Arterial Blood Glucose Arterial Blood Ionized Calcium Ur Specific [place] Coronavirus (PCR) Positive A 11/17/20 11/17/20 11/17/20 07:42 12:07 17:25 WBC RBC Lymph % (Auto) [place] % (Auto) Lymph # (Auto) [place] # (Auto) Baso # (Auto) Seg Neutrophils % Seg Neutrophils # D-Dimer POC ABG pCO2 POC ABG pO2 ABG Sodium ABG Glucose Sodium Chloride Carbon Dioxide BUN Creatinine Glucose POC Glucose 231 H 380 H 302 H Hemoglobin A1c Lactic Acid Calcium Ferritin Total Bilirubin AST ALT Alkaline Phosphatase Lactate Dehydrogenase C-Reactive Protein Albumin Arterial Blood Glucose Arterial Blood Ionized Calcium Ur Specific [place] Coronavirus (PCR) 11/17/20 11/18/20 11/18/20 21:53 04:25 07:45 WBC RBC Lymph % (Auto) [place] % (Auto) Lymph # (Auto) [place] # (Auto) Baso # (Auto) Seg Neutrophils % Seg Neutrophils # D-Dimer POC ABG pCO2 POC ABG pO2 ABG Sodium ABG Glucose Sodium 136 L Chloride Carbon Dioxide BUN 24 H Creatinine 0.6 L Glucose 212 H POC Glucose 293 H 216 H Hemoglobin A1c Lactic Acid Calcium 7.4 L Ferritin Total Bilirubin AST 41 H ALT Alkaline Phosphatase 142 H Lactate Dehydrogenase C-Reactive Protein Albumin 2.3 L Arterial Blood Glucose Arterial Blood Ionized Calcium Ur Specific [place] Coronavirus (PCR) 11/18/20 11/18/20 11/18/20 12:28 15:58 21:37 WBC RBC Lymph % (Auto) [place] % (Auto) Lymph # (Auto) [place] # (Auto) Baso # (Auto) Seg Neutrophils % Seg Neutrophils # D-Dimer POC ABG pCO2 POC ABG pO2 ABG Sodium ABG Glucose Sodium Chloride Carbon Dioxide BUN Creatinine Glucose POC Glucose 165 H 220 H 311 H Hemoglobin A1c Lactic Acid Calcium Ferritin Total Bilirubin AST ALT Alkaline Phosphatase Lactate Dehydrogenase C-Reactive Protein Albumin Arterial Blood Glucose Arterial Blood Ionized Calcium Ur Specific [place] Coronavirus (PCR) 11/19/20 11/19/20 05:35 07:40 WBC RBC Lymph % (Auto) [place] % (Auto) Lymph # (Auto) [place] # (Auto) Baso # (Auto) Seg Neutrophils % Seg Neutrophils # D-Dimer POC ABG pCO2 POC ABG pO2 ABG Sodium ABG Glucose Sodium 132 L Chloride Carbon Dioxide BUN 25 H Creatinine 0.5 L Glucose 179 H POC Glucose 149 H Hemoglobin A1c Lactic Acid Calcium 7.5 L Ferritin Total Bilirubin AST ALT Alkaline Phosphatase 139 H Lactate Dehydrogenase C-Reactive Protein Albumin 2.4 L Arterial Blood Glucose Arterial Blood Ionized Calcium Ur Specific [place] Coronavirus (PCR)
[2020-11-19] MEDS: cefTRIAXone/NS 2 GM/100 ML 2 GM/100 ML BAG IV SCH (09:04)
[2020-11-19] MEDS: ENOXAPARIN 80 MG/0.8 ML INJ SUB-Q SCH ×2 (09:04→22:35)
[2020-11-19] MEDS ORDERED: FUROSEMIDE 40 MG/4 ML INJ IV ONE (09:30)
--- NOTE | 2020-11-19 12:42 | Progress Note ---
Assessment and Plan Cultures: SARS CoV2 PCR: positive Blood culture: No growth A/P: 59-year-old male: #Bilateral pneumonia: secondary to COVID-19. Labs showed leukocytosis, D-dimer greater than 10,000, ferritin 672, CRP 19.8, LDH 663, creatinine 0.6, procalcitonin 0.51 #Acute hypoxic respiratory failure: Requiring BiPAP #Elevated d-dimer #Transaminitis: secondary to COVID-19. Recs: -continue steroids: IV/PO Dexamethasone 6 mg daily x 10 days -complete 5 days of abx -continue remdesivir, D4 -D-dimer high, DVT scan negative. Continue prophylactic anticoagulation based on d-dimer per hospital protocol -trend ferritin, LDH, d-dimer, CRP every 2-3 days for risk stratification and to assess disease progression Dayday Driscoll MD, FACP [facility] O: [phone] F: [phone] Subjective Date of service: 11/19/20 Interval history: No fever. Remains on BiPAP. Objective - Exam Narrative Exam: Physical Exam (reviewed in chart to minimize risk of transmission) Constitutional: deferred Head, Ears, Nose: deferred Eyes: deferred Neck: deferred Oral: deferred Cardiovascular: deferred Respiratory: deferred GI: deferred Musculoskeletal: deferred Skin: deferred Hem/Lymphatic: deferred Psych: deferred Neurological: deferred - Constitutional Vitals: Vital Signs Temp Pulse Resp BP Pulse Ox 97.3 F L 64 28 H 125/85 96 11/19/20 08:00 11/19/20 07:00 11/19/20 07:00 11/19/20 07:00 11/19/20 07:00 Temperature -Last 24 Hours Temperature 97.3 F Temperature 97.5 F Temperature 98.4 F Temperature 98.4 F Temperature 98.4 F - Labs CBC & Chem 7: 11/16/20 05:29 11/19/20 05:35 Labs: Abnormal lab results 11/18/20 11/18/20 11/19/20 Range/Units 15:58 21:37 05:35 Sodium 132 L (137-145) mmol/L BUN 25 H (9-20) mg/dL Creatinine 0.5 L (0.8-1.3) mg/dL Glucose 179 H (75-100) mg/dL POC Glucose 220 H 311 H (70-105) mg/dL Calcium 7.5 L (8.4-10.2) mg/dL Alkaline Phosphatase 139 H (35-129) units/L Albumin 2.4 L (3.9-5) g/dL 11/19/20 Range/Units 07:40 Sodium (137-145) mmol/L BUN (9-20) mg/dL Creatinine (0.8-1.3) mg/dL Glucose (75-100) mg/dL POC Glucose 149 H (70-105) mg/dL Calcium (8.4-10.2) mg/dL Alkaline Phosphatase (35-129) units/L Albumin (3.9-5) g/dL
[2020-11-19] MEDS: REMDESIVIR 100 MG in SODIUM CHLORIDE 0.9% 250ML 250 ML IV SCH (21:59)
[2020-11-19] MEDS: SODIUM CHLORIDE 0.9% 50 ML IVPB IV SCH (22:32)
[2020-11-19] MEDS: INSULIN GLARGINE 100 UNITS/ML SUB-Q SCH (22:33)
--- NOTE | 2020-11-20 09:07 | Progress Note ---
Assessment and Plan Assessment and plan: 59-year-old female presents with shortness of breath cough fever weakness. "1 to 2 days. Patient has severe hypoxia per EMS. Her saturations are in the low 80s. With all oxygen and nonrebreather came down to low 90s. Patient denies any past medical history. Exposure to coronavirus present. Does not have a primary care physician. 2/1: Patient continues on BiPAP throughout the night. Labs are remarkable for hypoxia with improving renal function but lactic acidosis without fever. CTA has been ordered to rule out pulmonary embolism. I agree with increasing enoxaparin to twice daily full dose for empiric treatment of pulmonary embolism. Will obtain ID consultation on further evaluation for possible underlying pneumonia versus COVID-19. We will also obtain echocardiogram for evaluation. Will discontinue fluids at this time. 2/2; Continue supportive care, Patient remains with very guarded prognosis, remains on BiPAP, continues on Remdesivir, and steroids. Will continue antico agulation, unable to get CTA Chest due to patients unstable clinical status. Will adjust insulin for better blood glucose 2/3: Continues on BIPAP, no clear improvement at this time. Will continue richelle roids therapy Remdesivir and also Full anticoagulation at this time. Will update family. Discussed with Customer Services Supervisor. 2/4: Taking a break from the BiPAP on high flow and nonrebreather 100% with saturation of 90% becomes hypoxic with any movement. Customer Services Supervisor input noted will get a dose of Lasix today. Will await a discussion with ID for possibly increasing steroid. I updated Patient's Cousin, Tayla Esquivel who is the emergency personal service representative. Blood sugar remains fluctuating secondary to steriods, Encouraged Prone positioning. Noted with mild hyponatremia we will continue to monitor and manage 2/5: Continue supportive care wean oxygen as tolerated prognosis remains guarded. Encouraged to progress as tolerated. Awaiting labs today. Discussed with nursing staff and patient at bedside. (1) Acute respiratory failure with hypoxia Current Visit: Yes Status: Acute Plan to address problem: Patient on 40% Ventimask Oxygen supplementation as necessary Pulmonary consult requested (2) Sepsis Current Visit: Yes Status: Acute Plan to address problem: Patient has high lactic acid and high white count consistent with sepsis IV antibiotics for now (3) Bilateral pneumonia Current Visit: Yes Status: Acute Qualifiers: Pneumonia type: due to unspecified organism Lung location: unspecified part of lung Qualified Code(s): J18.9 - Pneumonia, unspecified organism Plan to address problem: Patient initiated on IV ceftriaxone and azithromycin Treat as community-acquired pneumonia for now ID consult requested (4) 2019 novel coronavirus infection Current Visit: Yes Status: Acute Plan to address problem: Coronavirus PCR requested Patient initiated on IV Decadron 8 mg every 24 (5) Hyponatremia Current Visit: Yes Status: Acute Plan to address problem: Normal saline for 75 cc/h for 12 hours (6) Transaminitis Current Visit: Yes Status: Acute Plan to address problem: Secondary to Covid infection (7) DVT prophylaxis Current Visit: Yes Status: Acute Plan to address problem: On Lovenox and GI prophylaxis (8) Hyperglycemia Current Visit: Yes Status: Acute Plan to address problem: Patient may be having type 2 diabetes which is undiagnosed Check hemoglobin A1c Accu-Cheks for now and coverage for now May need insulin at the time of discharge The high probability of a clinically significant, sudden or life threatening deterioration of the [pulmonary] system(s) required my full and direct attention, intervention and personal management. The aggregate critical care time was [35] minutes. This time is in addition to time spent performing reported procedures but includes the following: [X] Data Review and interpretation [X] Patient assessment and monitoring of vital signs [X] Documentation [X] Medication orders and management History Interval history: Patient seen and examined still with shortness of breath this morning, following commands patient was on high flow and also nonrebreather. Tolerating breakfast today Hospitalist Physical - Physical exam Narrative exam: VITAL SIGNS: Reviewed. GENERAL: The patient appears normally developed, Still moderate respiratory distress vital signs as documented. HEAD: No signs of head trauma. EYES: Pupils are equal. Extraocular motions intact. EARS: Hearing grossly intact. MOUTH: Oropharynx is normal. NECK: No adenopathy, no JVD. CHEST: Chest with diminished breath sounds bilaterally. No wheezes, rales, or rhonchi. CARDIAC: Regular rate and rhythm. S1 and S2, without murmurs, gallops, or rubs. VASCULAR: No Edema. Peripheral pulses normal and equal in all extremities. ABDOMEN: Soft, non tender and non distended. No rebound or guarding, and no masses palpated. Bowel Sounds normal. MUSCULOSKELETAL: Good range of motion of all major joints. Extremities without clubbing, cyanosis or edema. NEUROLOGIC EXAM: Alert and oriented x 3 No focal sensory or strength deficits. Speech normal. Follows commands. PSYCHIATRIC: Mood normal. SKIN: detail exam as documented in skin assessment - Constitutional Vitals: Temp Pulse Resp BP Pulse Ox 98.7 F 73 36 H 108/77 93 11/20/20 07:00 11/20/20 06:00 11/20/20 06:00 11/20/20 06:00 11/20/20 06:00 General appearance: Present: mild distress, well-nourished HEART Score - HEART Score Troponin: Troponin T < 0.010 ng/mL (0.00-0.029) 11/15/20 10:39 Results - Labs CBC & Chem 7: 11/16/20 05:29 11/19/20 05:35 Labs: Laboratory Last Values WBC 12.9 K/mm3 (4.5-11.0) H 11/16/20 05:29 RBC 4.74 M/mm3 (3.65-5.03) 11/16/20 05:29 Hgb 14.2 gm/dl (11.8-15.2) 11/16/20 05:29 Hct 41.5 % (35.5-45.6) 11/16/20 05:29 MCV 88 fl (84-94) 11/16/20 05:29 MCH 30 pg (28-32) 11/16/20 05:29 MCHC 34 % (32-34) 11/16/20 05:29 RDW 13.3 % (13.2-15.2) 11/16/20 05:29 Plt Count 146 K/mm3 (140-440) 11/16/20 05:29 Lymph % (Auto) 4.5 % (13.4-35.0) L 11/16/20 05:29 [place] % (Auto) 4.3 % (0.0-7.3) 11/16/20 05:29 Eos % (Auto) 0.0 % (0.0-4.3) 11/16/20 05:29 Baso % (Auto) 1.4 % (0.0-1.8) 11/16/20 05:29 Lymph # (Auto) 0.6 K/mm3 (1.2-5.4) L 11/16/20 05:29 [place] # (Auto) 0.6 K/mm3 (0.0-0.8) 11/16/20 05:29 Eos # (Auto) 0.0 K/mm3 (0.0-0.4) 11/16/20 05:29 Baso # (Auto) 0.2 K/mm3 (0.0-0.1) H 11/16/20 05:29 Seg Neutrophils % 89.8 % (40.0-70.0) H 11/16/20 05:29 Seg Neutrophils # 11.5 K/mm3 (1.8-7.7) H 11/16/20 05:29 D-Dimer > 43167 ng/mlDDU (0-234) H 11/15/20 10:39 ABG pH 7.446 (7.320-7.450) 11/15/20 11:20 POC ABG pCO2 29.9 mmHg (32.0-48.0) L 11/15/20 11:20 POC ABG pO2 137.3 mmHg (83-108) H 11/15/20 11:20 POC ABG HCO3 20.1 11/15/20 11:20 POC ABG Base Excess -2.6 11/15/20 11:20 ABG Hemoglobin 15.0 (12.0-17.5) 11/15/20 11:20 ABG Oxyhemoglobin 96.8 (94-98) 11/15/20 11:20 ABG Methemoglobin 0.3 (0.0-1.5) 11/15/20 11:20 ABG Sodium 126.5 mmol/L (136.0-145.0) L 11/15/20 11:20 ABG Potassium 3.9 mmol/L (3.40-4.50) 11/15/20 11:20 ABG Chloride 100.0 mmol/L (98-107) 11/15/20 11:20 ABG Glucose 248 mg/dL (65-95) H 11/15/20 11:20 Carboxyhemoglobin 1.5 (0.5-1.5) 11/15/20 11:20 FiO2 100.0 11/15/20 11:20 Sodium 132 mmol/L (137-145) L 11/19/20 05:35 Potassium 4.4 mmol/L (3.6-5.0) 11/19/20 05:35 Chloride 99.8 mmol/L (98-107) 11/19/20 05:35 Carbon Dioxide 22 mmol/L (22-30) 11/19/20 05:35 Anion Gap 15 mmol/L 11/19/20 05:35 BUN 25 mg/dL (9-20) H 11/19/20 05:35 Creatinine 0.5 mg/dL (0.8-1.3) L 11/19/20 05:35 Estimated GFR > 60 ml/min 11/19/20 05:35 BUN/Creatinine Ratio 50 % 11/19/20 05:35 Glucose 179 mg/dL (75-100) H 11/19/20 05:35 POC Glucose 141 mg/dL (70-105) H 11/20/20 08:30 Hemoglobin A1c 11.7 % (4-6) H 11/16/20 05:29 Lactic Acid 2.60 mmol/L (0.7-2.0) H* 11/16/20 05:29 Calcium 7.5 mg/dL (8.4-10.2) L 11/19/20 05:35 Ferritin 672.8 ng/mL (30.0-300.0) H 11/15/20 10:39 Total Bilirubin 0.90 mg/dL (0.1-1.2) 11/19/20 05:35 AST 33 units/L (5-40) 11/19/20 05:35 ALT 45 units/L (7-56) 11/19/20 05:35 Alkaline Phosphatase 139 units/L (35-129) H 11/19/20 05:35 Lactate Dehydrogenase 663 units/L (91-180) H 11/15/20 10:39 Troponin T < 0.010 ng/mL (0.00-0.029) 11/15/20 10:39 C-Reactive Protein 19.80 mg/dL (0.00-1.30) H 11/15/20 10:39 NT-Pro-B Natriuret Pep 107.2 pg/mL (0-900) 11/17/20 10:21 Total Protein 6.5 g/dL (6.3-8.2) 11/19/20 05:35 Albumin 2.4 g/dL (3.9-5) L 11/19/20 05:35 Albumin/Globulin Ratio 0.6 % 11/19/20 05:35 Procalcitonin 0.51 ng/mL (<0.15) 11/15/20 10:39 Arterial Blood Glucose 248 mg/dL (65-95) H 11/15/20 11:20 Arterial Blood Ionized Calcium 4.1 mg/dL (4.6-5.3) L 11/15/20 11:20 Urine Color [place] (Yellow) 11/16/20 01:45 Urine Turbidity Slightly-cloudy (Clear) 11/16/20 01:45 Urine pH 6.0 (5.0-7.0) 11/16/20 01:45 Ur Specific [place] 1.037 (1.003-1.030) H 11/16/20 01:45 Urine Protein 30 mg/dl mg/dL (Negative) 11/16/20 01:45 Urine Glucose (UA) >=500 mg/dL (Negative) 11/16/20 01:45 Urine Ketones 20 mg/dL (Negative) 11/16/20 01:45 Urine Blood Neg (Negative) 11/16/20 01:45 Urine Nitrite Neg (Negative) 11/16/20 01:45 Urine Bilirubin Neg (Negative) 11/16/20 01:45 Urine Urobilinogen 2.0 mg/dL (<2.0) 11/16/20 01:45 Ur Leukocyte Esterase Neg (Negative) 11/16/20 01:45 Urine WBC (Auto) 2.0 /HPF (0.0-6.0) 11/16/20 01:45 Urine RBC (Auto) 1.0 /HPF (0.0-6.0) 11/16/20 01:45 Urine Bacteria (Auto) 1+ /HPF (Negative) 11/16/20 01:45 Urine Mucus 3+ /HPF 11/16/20 01:45 Coronavirus (PCR) Positive (Negative) A 11/16/20 Unknown Microbiology: Microbiology 11/15/20 10:39 Peripheral/Venous Blood Culture - Preliminary NO GROWTH AFTER 4 DAYS 11/15/20 10:39 Peripheral/Venous Blood Culture - Preliminary NO GROWTH AFTER 4 DAYS Gupta/IV: Voiding Method Urinal IV Catheter Type [Left Peripheral IV Antecubital] Active Medications - Current Medications Current Medications: Generic Name Dose Route Start Last Admin Trade Name Freq PRN Reason Stop Dose Admin Acetaminophen 650 mg 11/15/20 23:55 11/18/20 22:19 Acetaminophen 325 Mg Tab PO 650 mg Q4H PRN Administration Pain MILD(1-3)/Fever >100.5/BUTTS Dexamethasone 6 mg 11/17/20 08:00 11/19/20 09:01 Dexamethasone 4 Mg/Ml Vial IV 11/26/20 08:01 6 mg Q24H RAEANN Administration Enoxaparin Sodium 80 mg 11/16/20 10:00 11/19/20 22:35 Enoxaparin 80 Mg/0.8 Ml Inj SUB-Q 80 mg Q12HR RAEANN Administration Famotidine 20 mg 11/15/20 23:45 11/19/20 22:30 Famotidine 20 Mg Tab PO 20 mg BID RAEANN Administration Hydromorphone HCl 0.5 mg 11/15/20 23:55 Hydromorphone 1 Mg/1 Ml Inj IV Q3H PRN Pain , Severe (7-10) Azithromycin 500 mg in 250 mls @ 250 mls/hr 11/16/20 10:00 11/19/20 09:03 Zithromax/Ns IV 11/20/20 10:59 250 mls/hr Q24H RAEANN Administration Ceftriaxone Sodium 2 gm in 100 mls @ 200 mls/hr 11/16/20 10:00 11/19/20 09:04 Rocephin/Ns 2 Gm/100 Ml IV 11/20/20 10:29 200 mls/hr Q24HR RAEANN Administration Protocol REMDESIVIR 100 mg/ Sodium 250 mls @ 500 mls/hr 11/17/20 21:00 11/19/20 21:59 Chloride IV 11/20/20 21:29 500 mls/hr Q24HR@2100 RAEANN Administration Insulin Glargine 25 units 11/20/20 22:00 Insulin Glargine 100 Units/Ml SUB-Q QHS RAEANN Insulin Glargine 5 units 11/20/20 10:00 Insulin Glargine 100 Units/Ml SUB-Q 11/20/20 10:01 ONCE ONE Insulin Human Lispro 0 unit 11/16/20 07:30 11/19/20 21:59 Insulin Lispro 100 Unit/Ml SUB-Q 8 unit ACHS RAEANN Administration Protocol Metoclopramide HCl 10 mg 11/15/20 23:55 Metoclopramide 10 Mg/2 Ml Inj IV Q6H PRN Nausea And Vomiting Ondansetron HCl 4 mg 11/15/20 23:55 Ondansetron 4 Mg/2 Ml Inj IV Q8H PRN Nausea And Vomiting Oxycodone/Acetaminophen 1 tab 11/15/20 23:55 Oxycodone /Acetaminophen 5-325mg Tab PO Q6H PRN Pain, Moderate (4-6) Sodium Chloride 10 ml 11/16/20 10:00 11/20/20 02:35 Sodium Chloride 0.9% 10 Ml Flush Syringe IV 10 ml BID RAEANN Administration Sodium Chloride 10 ml 11/15/20 23:55 Sodium Chloride 0.9% 10 Ml Flush Syringe IV PRN PRN LINE FLUSH
[2020-11-20 09:54] LABS: Alanine Aminotransferase 47 units/L (7-56); Albumin 2.6 g/dL (3.9-5); BUN/Creatinine Ratio 52; Blood Urea Nitrogen 26 mg/dL (9-20); Calcium 7.9 mg/dL (8.4-10.2); Hemolysis Index 26
[2020-11-20] MEDS ORDERED: INSULIN GLARGINE 100 UNITS/ML SUB-Q ONE (10:00)
[2020-11-20] MEDS: INSULIN LISPRO 100 UNIT/ML SUB-Q SCH ×4 (10:26→23:29)
[2020-11-20] MEDS: dexAMETHasone 4 MG/ML VIAL IV SCH (10:58)
[2020-11-20] MEDS: AZITHROMYCIN/NS 500 MG/250 ML 500 MG/250 ML BAG IV SCH (10:58)
[2020-11-20] MEDS: FAMOTIDINE 20 MG TAB PO SCH ×2 (10:59→21:56)
[2020-11-20] MEDS: cefTRIAXone/NS 2 GM/100 ML 2 GM/100 ML BAG IV SCH (10:59)
[2020-11-20] MEDS: ENOXAPARIN 80 MG/0.8 ML INJ SUB-Q SCH ×2 (10:59→21:55)
--- NOTE | 2020-11-20 11:57 | Progress Note ---
Assessment and Plan 59 y/o male with acute respiratory failure, abnormal CXR and abnormal lab studies. 11/20/20: WIll change to solumedrol 60q6 today. Hold on lasix today. Given his increasing oxygen requirement, will likely end up intubated. OVerall prognosis is very poor. 11/19/20: lasix 40mg IV x1 today. Will speak with ID but may consider increasing steroids to see if this will help with oxygenation. Continue Remdesivir. Prognosis remains guarded. 11/18/20: Continue bipap, goal is to attempt to prevent prolong intubation for as long as possible. Lasix again today. Steroids and Remdesivir. Guarded Prognosis. 11/17/20: Continue bipap therapy. Monitor mental state. High risk for Intubation. Continue BID anticoagulation. Prone if able. BNP was elevated but not grossly elevated. Will still give lasix with hopes of achieving net neg ative state. STeroids and remdesivir. Overall prognosis is guarded, extremely guarded. 1. Pulm- Agree with concern for covid. Agree with empiric abx but procal is only mildly elevated. Await cultures. Continue bipap therapy for now but will need to monitor closely. [facility] has ordered CTA, but I spoke with pharmacy and we will empirically treat with BID lovenox therapy. COntinue empiric steroid therapy for COVID until studies back. Not sure that he will be able to prone on bipap therapy. MOnitor volume status and run as dry as possible. 2. Renal-normal function but all electrolytes abnormal. HYponatremia and Hypochloremia volume up vs volume down. Sent BNP. Would suggest obtaning echo as well. Not sure what to make of elevated lactate unless that is from increased work of breathing or damage to other tissue unknown. May need to check LFT's and Coags as well. 3. Guarded Prognosis. Subjective Date of service: 11/20/20 Interval history: Now on NRB with HFNC. Sats in the 80's. Still awake. Objective Vital Signs - 12hr 11/20/20 11/20/20 11/20/20 00:00 01:00 02:01 Temperature 99.0 F Pulse Rate 76 82 68 Respiratory 35 H 37 H 31 H Rate Blood Pressure 116/78 120/72 104/50 O2 Sat by Pulse 93 92 95 Oximetry 11/20/20 11/20/20 11/20/20 03:00 03:14 04:00 Temperature 97.5 F L Pulse Rate 71 63 65 Respiratory 36 H 29 H 28 H Rate Blood Pressure 112/77 112/77 118/73 O2 Sat by Pulse 92 94 93 Oximetry 11/20/20 11/20/20 11/20/20 05:00 06:00 07:00 Temperature 98.7 F Pulse Rate 73 73 Respiratory 35 H 36 H Rate Blood Pressure 119/78 108/77 O2 Sat by Pulse 95 93 Oximetry 11/20/20 09:06 Temperature Pulse Rate Respiratory Rate Blood Pressure O2 Sat by Pulse 80 L Oximetry Constitutional: alert ENT: other (full face mask bipap being worn) Ascultation: Bilateral: rales Percussion: Bilateral: not dull Cardiovascular: regular rate and rhythm Gastrointestinal: soft, non-tender CBC and BMP: 11/16/20 05:29 11/20/20 08:50 ABG, PT/INR, D-dimer: ABG ABG pH 7.446 (7.320-7.450) 11/15/20 11:20 POC ABG pCO2 29.9 mmHg (32.0-48.0) L 11/15/20 11:20 POC ABG pO2 137.3 mmHg (83-108) H 11/15/20 11:20 POC ABG HCO3 20.1 11/15/20 11:20 PT/INR, D-dimer D-Dimer > 40984 ng/mlDDU (0-234) H 11/15/20 10:39 Abnormal lab findings: Abnormal Labs 11/15/20 11/15/20 11/15/20 10:39 10:39 10:39 WBC 14.3 H RBC 5.17 H Lymph % (Auto) 7.8 L [place] % (Auto) 7.6 H Lymph # (Auto) 1.1 L [place] # (Auto) 1.1 H Baso # (Auto) Seg Neutrophils % 83.3 H Seg Neutrophils # 11.9 H D-Dimer POC ABG pCO2 POC ABG pO2 ABG Sodium ABG Glucose Sodium 128 L Chloride 96.0 L Carbon Dioxide BUN Creatinine 0.7 L Glucose 238 H POC Glucose Hemoglobin A1c Lactic Acid 4.10 H* Calcium 7.0 L Ferritin Total Bilirubin 1.40 H AST 49 H ALT 70 H Alkaline Phosphatase Lactate Dehydrogenase 663 H C-Reactive Protein 19.80 H Albumin 2.9 L Arterial Blood Glucose Arterial Blood Ionized Calcium Ur Specific [place] Coronavirus (PCR) 11/15/20 11/15/20 11/15/20 10:39 10:39 11:20 WBC RBC Lymph % (Auto) [place] % (Auto) Lymph # (Auto) [place] # (Auto) Baso # (Auto) Seg Neutrophils % Seg Neutrophils # D-Dimer > 34464 H POC ABG pCO2 29.9 L POC ABG pO2 137.3 H ABG Sodium 126.5 L ABG Glucose 248 H Sodium Chloride Carbon Dioxide BUN Creatinine Glucose POC Glucose Hemoglobin A1c Lactic Acid Calcium Ferritin 672.8 H Total Bilirubin AST ALT Alkaline Phosphatase Lactate Dehydrogenase C-Reactive Protein Albumin Arterial Blood Glucose 248 H Arterial Blood Ionized Calcium 4.1 L Ur Specific [place] Coronavirus (PCR) 11/15/20 11/15/20 11/16/20 13:41 23:41 01:45 WBC RBC Lymph % (Auto) [place] % (Auto) Lymph # (Auto) [place] # (Auto) Baso # (Auto) Seg Neutrophils % Seg Neutrophils # D-Dimer POC ABG pCO2 POC ABG pO2 ABG Sodium ABG Glucose Sodium Chloride Carbon Dioxide BUN Creatinine Glucose POC Glucose 284 H Hemoglobin A1c Lactic Acid 2.30 H* Calcium Ferritin Total Bilirubin AST ALT Alkaline Phosphatase Lactate Dehydrogenase C-Reactive Protein Albumin Arterial Blood Glucose Arterial Blood Ionized Calcium Ur Specific [place] 1.037 H Coronavirus (PCR) 11/16/20 11/16/20 11/16/20 05:29 05:29 05:29 WBC 12.9 H RBC Lymph % (Auto) 4.5 L [place] % (Auto) Lymph # (Auto) 0.6 L [place] # (Auto) Baso # (Auto) 0.2 H Seg Neutrophils % 89.8 H Seg Neutrophils # 11.5 H D-Dimer POC ABG pCO2 POC ABG pO2 ABG Sodium ABG Glucose Sodium 131 L Chloride Carbon Dioxide 21 L BUN 23 H Creatinine 0.6 L Glucose 342 H POC Glucose Hemoglobin A1c Lactic Acid 2.60 H* Calcium 7.0 L Ferritin Total Bilirubin AST ALT Alkaline Phosphatase Lactate Dehydrogenase C-Reactive Protein Albumin 2.4 L Arterial Blood Glucose Arterial Blood Ionized Calcium Ur Specific [place] Coronavirus (PCR) 11/16/20 11/16/20 11/16/20 05:29 08:11 12:11 WBC RBC Lymph % (Auto) [place] % (Auto) Lymph # (Auto) [place] # (Auto) Baso # (Auto) Seg Neutrophils % Seg Neutrophils # D-Dimer POC ABG pCO2 POC ABG pO2 ABG Sodium ABG Glucose Sodium Chloride Carbon Dioxide BUN Creatinine Glucose POC Glucose 329 H 320 H Hemoglobin A1c 11.7 H Lactic Acid Calcium Ferritin Total Bilirubin AST ALT Alkaline Phosphatase Lactate Dehydrogenase C-Reactive Protein Albumin Arterial Blood Glucose Arterial Blood Ionized Calcium Ur Specific [place] Coronavirus (PCR) 11/16/20 11/16/20 11/16/20 16:13 21:29 Unknown WBC RBC Lymph % (Auto) [place] % (Auto) Lymph # (Auto) [place] # (Auto) Baso # (Auto) Seg Neutrophils % Seg Neutrophils # D-Dimer POC ABG pCO2 POC ABG pO2 ABG Sodium ABG Glucose Sodium Chloride Carbon Dioxide BUN Creatinine Glucose POC Glucose 257 H 376 H Hemoglobin A1c Lactic Acid Calcium Ferritin Total Bilirubin AST ALT Alkaline Phosphatase Lactate Dehydrogenase C-Reactive Protein Albumin Arterial Blood Glucose Arterial Blood Ionized Calcium Ur Specific [place] Coronavirus (PCR) Positive A 11/17/20 11/17/20 11/17/20 07:42 12:07 17:25 WBC RBC Lymph % (Auto) [place] % (Auto) Lymph # (Auto) [place] # (Auto) Baso # (Auto) Seg Neutrophils % Seg Neutrophils # D-Dimer POC ABG pCO2 POC ABG pO2 ABG Sodium ABG Glucose Sodium Chloride Carbon Dioxide BUN Creatinine Glucose POC Glucose 231 H 380 H 302 H Hemoglobin A1c Lactic Acid Calcium Ferritin Total Bilirubin AST ALT Alkaline Phosphatase Lactate Dehydrogenase C-Reactive Protein Albumin Arterial Blood Glucose Arterial Blood Ionized Calcium Ur Specific [place] Coronavirus (PCR) 11/17/20 11/18/20 11/18/20 21:53 04:25 07:45 WBC RBC Lymph % (Auto) [place] % (Auto) Lymph # (Auto) [place] # (Auto) Baso # (Auto) Seg Neutrophils % Seg Neutrophils # D-Dimer POC ABG pCO2 POC ABG pO2 ABG Sodium ABG Glucose Sodium 136 L Chloride Carbon Dioxide BUN 24 H Creatinine 0.6 L Glucose 212 H POC Glucose 293 H 216 H Hemoglobin A1c Lactic Acid Calcium 7.4 L Ferritin Total Bilirubin AST 41 H ALT Alkaline Phosphatase 142 H Lactate Dehydrogenase C-Reactive Protein Albumin 2.3 L Arterial Blood Glucose Arterial Blood Ionized Calcium Ur Specific [place] Coronavirus (PCR) 11/18/20 11/18/20 11/18/20 12:28 15:58 21:37 WBC RBC Lymph % (Auto) [place] % (Auto) Lymph # (Auto) [place] # (Auto) Baso # (Auto) Seg Neutrophils % Seg Neutrophils # D-Dimer POC ABG pCO2 POC ABG pO2 ABG Sodium ABG Glucose Sodium Chloride Carbon Dioxide BUN Creatinine Glucose POC Glucose 165 H 220 H 311 H Hemoglobin A1c Lactic Acid Calcium Ferritin Total Bilirubin AST ALT Alkaline Phosphatase Lactate Dehydrogenase C-Reactive Protein Albumin Arterial Blood Glucose Arterial Blood Ionized Calcium Ur Specific [place] Coronavirus (PCR) 11/19/20 11/19/20 11/19/20 05:35 07:40 12:39 WBC RBC Lymph % (Auto) [place] % (Auto) Lymph # (Auto) [place] # (Auto) Baso # (Auto) Seg Neutrophils % Seg Neutrophils # D-Dimer POC ABG pCO2 POC ABG pO2 ABG Sodium ABG Glucose Sodium 132 L Chloride Carbon Dioxide BUN 25 H Creatinine 0.5 L Glucose 179 H POC Glucose 149 H 306 H Hemoglobin A1c Lactic Acid Calcium 7.5 L Ferritin Total Bilirubin AST ALT Alkaline Phosphatase 139 H Lactate Dehydrogenase C-Reactive Protein Albumin 2.4 L Arterial Blood Glucose Arterial Blood Ionized Calcium Ur Specific [place] Coronavirus (PCR) 11/19/20 11/19/20 11/20/20 16:17 21:25 08:30 WBC RBC Lymph % (Auto) [place] % (Auto) Lymph # (Auto) [place] # (Auto) Baso # (Auto) Seg Neutrophils % Seg Neutrophils # D-Dimer POC ABG pCO2 POC ABG pO2 ABG Sodium ABG Glucose Sodium Chloride Carbon Dioxide BUN Creatinine Glucose POC Glucose 364 H 347 H 141 H Hemoglobin A1c Lactic Acid Calcium Ferritin Total Bilirubin AST ALT Alkaline Phosphatase Lactate Dehydrogenase C-Reactive Protein Albumin Arterial Blood Glucose Arterial Blood Ionized Calcium Ur Specific [place] Coronavirus (PCR) 11/20/20 11/20/20 08:50 11:32 WBC RBC Lymph % (Auto) [place] % (Auto) Lymph # (Auto) [place] # (Auto) Baso # (Auto) Seg Neutrophils % Seg Neutrophils # D-Dimer POC ABG pCO2 POC ABG pO2 ABG Sodium ABG Glucose Sodium 132 L Chloride 97.6 L Carbon Dioxide BUN 26 H Creatinine 0.5 L Glucose 201 H POC Glucose 296 H Hemoglobin A1c Lactic Acid Calcium 7.9 L Ferritin Total Bilirubin AST ALT Alkaline Phosphatase 137 H Lactate Dehydrogenase C-Reactive Protein Albumin 2.6 L Arterial Blood Glucose Arterial Blood Ionized Calcium Ur Specific [place] Coronavirus (PCR)
--- NOTE | 2020-11-20 13:42 | Progress Note ---
Assessment and Plan Cultures: SARS CoV2 PCR: positive Blood culture: No growth A/P: 59-year-old male: #Bilateral pneumonia: secondary to COVID-19. Labs showed leukocytosis, D-dimer greater than 10,000, ferritin 672, CRP 19.8, LDH 663, creatinine 0.6, procalcitonin 0.51 #Acute hypoxic respiratory failure: Requiring BiPAP #Elevated d-dimer: DVT scan negative. Unable to get CTA Chest due to patients unstable clinical status #Transaminitis: secondary to COVID-19. Recs: -continue steroids: IV/PO Dexamethasone 6 mg daily x 10 days -completes 5 days of abx today -continue remdesivir, D5 -Continue prophylactic anticoagulation based on d-dimer per hospital protocol -trend ferritin, LDH, d-dimer, CRP every 2-3 days for risk stratification and to assess disease progression -guarded prognosis Dayday Driscoll MD, FACP [facility] ([facility] O: [phone] F: [phone] Subjective Date of service: 11/20/20 Interval history: No fever. Remains on BiPAP/HFNC. Objective - Exam Narrative Exam: Physical Exam (reviewed in chart to minimize risk of transmission) Constitutional: deferred Head, Ears, Nose: deferred Eyes: deferred Neck: deferred Oral: deferred Cardiovascular: deferred Respiratory: deferred GI: deferred Musculoskeletal: deferred Skin: deferred Hem/Lymphatic: deferred Psych: deferred Neurological: deferred - Constitutional Vitals: Vital Signs Temp Pulse Resp BP Pulse Ox 98.5 F 73 36 H 108/77 80 L 11/20/20 11:00 11/20/20 06:00 11/20/20 06:00 11/20/20 06:00 11/20/20 09:06 Temperature -Last 24 Hours Temperature 98.5 F Temperature 98.7 F Temperature 97.5 F Temperature 99.0 F Temperature 98.5 F Temperature 97.6 F - Labs CBC & Chem 7: 11/16/20 05:29 11/20/20 08:50 Labs: Abnormal lab results 11/19/20 11/19/20 11/19/20 Range/Units 12:39 16:17 21:25 Sodium (137-145) mmol/L Chloride (98-107) mmol/L BUN (9-20) mg/dL Creatinine (0.8-1.3) mg/dL Glucose (75-100) mg/dL POC Glucose 306 H 364 H 347 H (70-105) mg/dL Calcium (8.4-10.2) mg/dL Alkaline Phosphatase (35-129) units/L Albumin (3.9-5) g/dL 11/20/20 11/20/20 11/20/20 Range/Units 08:30 08:50 11:32 Sodium 132 L (137-145) mmol/L Chloride 97.6 L (98-107) mmol/L BUN 26 H (9-20) mg/dL Creatinine 0.5 L (0.8-1.3) mg/dL Glucose 201 H (75-100) mg/dL POC Glucose 141 H 296 H (70-105) mg/dL Calcium 7.9 L (8.4-10.2) mg/dL Alkaline Phosphatase 137 H (35-129) units/L Albumin 2.6 L (3.9-5) g/dL
[2020-11-20] MEDS: methylPREDNISolone Sod Succinate 125 MG/2 ML INJ IV SCH ×3 (14:00→23:37)
[2020-11-20] MEDS ORDERED: SODIUM CHLORIDE 0.9% 50 ML IVPB IV SCH (21:00)
[2020-11-20] MEDS: REMDESIVIR 100 MG in SODIUM CHLORIDE 0.9% 250ML 250 ML IV SCH (21:45)
[2020-11-20] MEDS ORDERED: INSULIN GLARGINE 100 UNITS/ML SUB-Q SCH (22:00)
[2020-11-21] MEDS ORDERED: ETOMIDATE 20 MG/10 ML INJ IV ONE (00:24)
[2020-11-21] MEDS ORDERED: ROCURONIUM 50 MG/5 ML INJ IV ONE (00:24)
[2020-11-21] MEDS ORDERED: SUCCINYLCHOLINE CHLORIDE 200 MG/10 ML INJ MDV ONE (00:24)
[2020-11-21] MEDS ORDERED: KETAMINE 500 MG/5 ML VIAL MDV ONE (00:24)
[2020-11-21] MEDS: methylPREDNISolone Sod Succinate 125 MG/2 ML INJ IV SCH ×3 (06:16→17:33)
[2020-11-21] MEDS ORDERED: INSULIN REGULAR, HUMAN 100 UNITS/1 ML SUB-Q NR (07:59)
--- NOTE | 2020-11-21 08:02 | Progress Note ---
Assessment and Plan Assessment and plan: 59-year-old female presents with shortness of breath cough fever weakness. "1 to 2 days. Patient has severe hypoxia per EMS. Her saturations are in the low 80s. With all oxygen and nonrebreather came down to low 90s. Patient denies any past medical history. Exposure to coronavirus present. Does not have a primary care physician. 2/1: Patient continues on BiPAP throughout the night. Labs are remarkable for hypoxia with improving renal function but lactic acidosis without fever. CTA has been ordered to rule out pulmonary embolism. I agree with increasing enoxaparin to twice daily full dose for empiric treatment of pulmonary embolism. Will obtain ID consultation on further evaluation for possible underlying pneumonia versus COVID-19. We will also obtain echocardiogram for evaluation. Will discontinue fluids at this time. 2/2; Continue supportive care, Patient remains with very guarded prognosis, remains on BiPAP, continues on Remdesivir, and steroids. Will continue antico agulation, unable to get CTA Chest due to patients unstable clinical status. Will adjust insulin for better blood glucose 2/3: Continues on BIPAP, no clear improvement at this time. Will continue richelle roids therapy Remdesivir and also Full anticoagulation at this time. Will update family. Discussed with Quality Measurement Specialist. 2/4: Taking a break from the BiPAP on high flow and nonrebreather 100% with saturation of 90% becomes hypoxic with any movement. Quality Measurement Specialist input noted will get a dose of Lasix today. Will await a discussion with ID for possibly increasing steroid. I updated Patient's Cousin, Tayla Esquivel who is the emergency personnel specialist. Blood sugar remains fluctuating secondary to steriods, Encouraged Prone positioning. Noted with mild hyponatremia we will continue to monitor and manage 2/5: Continue supportive care wean oxygen as tolerated prognosis remains guarded. Encouraged to progress as tolerated. Awaiting labs today. Discussed with nursing staff and patient at bedside. 2/6: Discontinued Dexamethasone as Solumedrol started secondary to increased oxygen demand. Will give additional insulin for better control. Continue oxygen support patient still on high flow. Prognosis still guarded (1) Acute respiratory failure with hypoxia Current Visit: Yes Status: Acute Plan to address problem: Patient on 40% Ventimask Oxygen supplementation as necessary Pulmonary consult requested (2) Sepsis Current Visit: Yes Status: Acute Plan to address problem: Patient has high lactic acid and high white count consistent with sepsis IV antibiotics for now (3) Bilateral pneumonia Current Visit: Yes Status: Acute Qualifiers: Pneumonia type: due to unspecified organism Lung location: unspecified part of lung Qualified Code(s): J18.9 - Pneumonia, unspecified organism Plan to address problem: Patient initiated on IV ceftriaxone and azithromycin Treat as community-acquired pneumonia for now ID consult requested (4) 2019 novel coronavirus infection Current Visit: Yes Status: Acute Plan to address problem: Coronavirus PCR requested Patient initiated on IV Decadron 8 mg every 24 (5) Hyponatremia Current Visit: Yes Status: Acute Plan to address problem: Normal saline for 75 cc/h for 12 hours (6) Transaminitis Current Visit: Yes Status: Acute Plan to address problem: Secondary to Covid infection (7) DVT prophylaxis Current Visit: Yes Status: Acute Plan to address problem: On Lovenox and GI prophylaxis (8) Hyperglycemia Current Visit: Yes Status: Acute Plan to address problem: Patient may be having type 2 diabetes which is undiagnosed Check hemoglobin A1c Accu-Cheks for now and coverage for now May need insulin at the time of discharge The high probability of a clinically significant, sudden or life threatening deterioration of the [pulmonary] system(s) required my full and direct attention, intervention and personal management. The aggregate critical care time was [35] minutes. This time is in addition to time spent performing reported procedures but includes the following: [X] Data Review and interpretation [X] Patient assessment and monitoring of vital signs [X] Documentation [X] Medication orders and management History Interval history: Patient seen and examined still with shortness of breath this morning, following commands patient was on high flow and also nonrebreather. Tolerating breakfast today Hospitalist Physical - Physical exam Narrative exam: VITAL SIGNS: Reviewed. GENERAL: The patient appears normally developed, Still moderate respiratory distress vital signs as documented. HEAD: No signs of head trauma. EYES: Pupils are equal. Extraocular motions intact. EARS: Hearing grossly intact. MOUTH: Oropharynx is normal. NECK: No adenopathy, no JVD. CHEST: Chest with diminished breath sounds bilaterally. No wheezes, rales, or rhonchi. CARDIAC: Regular rate and rhythm. S1 and S2, without murmurs, gallops, or rubs. VASCULAR: No Edema. Peripheral pulses normal and equal in all extremities. ABDOMEN: Soft, non tender and non distended. No rebound or guarding, and no masses palpated. Bowel Sounds normal. MUSCULOSKELETAL: Good range of motion of all major joints. Extremities without clubbing, cyanosis or edema. NEUROLOGIC EXAM: Alert and oriented x 3 No focal sensory or strength deficits. Speech normal. Follows commands. PSYCHIATRIC: Mood normal. SKIN: detail exam as documented in skin assessment - Constitutional Vitals: Temp Pulse Resp BP Pulse Ox 97.5 F L 63 32 H 113/72 92 11/21/20 04:00 11/21/20 07:00 11/21/20 07:00 11/21/20 07:00 11/21/20 07:00 General appearance: Present: mild distress, well-nourished HEART Score - HEART Score Troponin: Troponin T < 0.010 ng/mL (0.00-0.029) 11/15/20 10:39 Results - Labs CBC & Chem 7: 11/16/20 05:29 11/20/20 08:50 Labs: Laboratory Last Values WBC 12.9 K/mm3 (4.5-11.0) H 11/16/20 05:29 RBC 4.74 M/mm3 (3.65-5.03) 11/16/20 05:29 Hgb 14.2 gm/dl (11.8-15.2) 11/16/20 05:29 Hct 41.5 % (35.5-45.6) 11/16/20 05:29 MCV 88 fl (84-94) 11/16/20 05:29 MCH 30 pg (28-32) 11/16/20 05:29 MCHC 34 % (32-34) 11/16/20 05:29 RDW 13.3 % (13.2-15.2) 11/16/20 05:29 Plt Count 146 K/mm3 (140-440) 11/16/20 05:29 Lymph % (Auto) 4.5 % (13.4-35.0) L 11/16/20 05:29 [place] % (Auto) 4.3 % (0.0-7.3) 11/16/20 05:29 Eos % (Auto) 0.0 % (0.0-4.3) 11/16/20 05:29 Baso % (Auto) 1.4 % (0.0-1.8) 11/16/20 05:29 Lymph # (Auto) 0.6 K/mm3 (1.2-5.4) L 11/16/20 05:29 [place] # (Auto) 0.6 K/mm3 (0.0-0.8) 11/16/20 05:29 Eos # (Auto) 0.0 K/mm3 (0.0-0.4) 11/16/20 05:29 Baso # (Auto) 0.2 K/mm3 (0.0-0.1) H 11/16/20 05:29 Seg Neutrophils % 89.8 % (40.0-70.0) H 11/16/20 05:29 Seg Neutrophils # 11.5 K/mm3 (1.8-7.7) H 11/16/20 05:29 D-Dimer > 15294 ng/mlDDU (0-234) H 11/15/20 10:39 ABG pH 7.446 (7.320-7.450) 11/15/20 11:20 POC ABG pCO2 29.9 mmHg (32.0-48.0) L 11/15/20 11:20 POC ABG pO2 137.3 mmHg (83-108) H 11/15/20 11:20 POC ABG HCO3 20.1 11/15/20 11:20 POC ABG Base Excess -2.6 11/15/20 11:20 ABG Hemoglobin 15.0 (12.0-17.5) 11/15/20 11:20 ABG Oxyhemoglobin 96.8 (94-98) 11/15/20 11:20 ABG Methemoglobin 0.3 (0.0-1.5) 11/15/20 11:20 ABG Sodium 126.5 mmol/L (136.0-145.0) L 11/15/20 11:20 ABG Potassium 3.9 mmol/L (3.40-4.50) 11/15/20 11:20 ABG Chloride 100.0 mmol/L (98-107) 11/15/20 11:20 ABG Glucose 248 mg/dL (65-95) H 11/15/20 11:20 Carboxyhemoglobin 1.5 (0.5-1.5) 11/15/20 11:20 FiO2 100.0 11/15/20 11:20 Sodium 132 mmol/L (137-145) L 11/20/20 08:50 Potassium 4.1 mmol/L (3.6-5.0) 11/20/20 08:50 Chloride 97.6 mmol/L (98-107) L 11/20/20 08:50 Carbon Dioxide 27 mmol/L (22-30) 11/20/20 08:50 Anion Gap 12 mmol/L 11/20/20 08:50 BUN 26 mg/dL (9-20) H 11/20/20 08:50 Creatinine 0.5 mg/dL (0.8-1.3) L 11/20/20 08:50 Estimated GFR > 60 ml/min 11/20/20 08:50 BUN/Creatinine Ratio 52 % 11/20/20 08:50 Glucose 201 mg/dL (75-100) H 11/20/20 08:50 POC Glucose 311 mg/dL (70-105) H 11/20/20 22:09 Hemoglobin A1c 11.7 % (4-6) H 11/16/20 05:29 Lactic Acid 2.60 mmol/L (0.7-2.0) H* 11/16/20 05:29 Calcium 7.9 mg/dL (8.4-10.2) L 11/20/20 08:50 Ferritin 672.8 ng/mL (30.0-300.0) H 11/15/20 10:39 Total Bilirubin 1.00 mg/dL (0.1-1.2) 11/20/20 08:50 AST 40 units/L (5-40) 11/20/20 08:50 ALT 47 units/L (7-56) 11/20/20 08:50 Alkaline Phosphatase 137 units/L (35-129) H 11/20/20 08:50 Lactate Dehydrogenase 663 units/L (91-180) H 11/15/20 10:39 Troponin T < 0.010 ng/mL (0.00-0.029) 11/15/20 10:39 C-Reactive Protein 19.80 mg/dL (0.00-1.30) H 11/15/20 10:39 NT-Pro-B Natriuret Pep 107.2 pg/mL (0-900) 11/17/20 10:21 Total Protein 7.5 g/dL (6.3-8.2) 11/20/20 08:50 Albumin 2.6 g/dL (3.9-5) L 11/20/20 08:50 Albumin/Globulin Ratio 0.5 % 11/20/20 08:50 Procalcitonin 0.51 ng/mL (<0.15) 11/15/20 10:39 Arterial Blood Glucose 248 mg/dL (65-95) H 11/15/20 11:20 Arterial Blood Ionized Calcium 4.1 mg/dL (4.6-5.3) L 11/15/20 11:20 Urine Color [place] (Yellow) 11/16/20 01:45 Urine Turbidity Slightly-cloudy (Clear) 11/16/20 01:45 Urine pH 6.0 (5.0-7.0) 11/16/20 01:45 Ur Specific [place] 1.037 (1.003-1.030) H 11/16/20 01:45 Urine Protein 30 mg/dl mg/dL (Negative) 11/16/20 01:45 Urine Glucose (UA) >=500 mg/dL (Negative) 11/16/20 01:45 Urine Ketones 20 mg/dL (Negative) 11/16/20 01:45 Urine Blood Neg (Negative) 11/16/20 01:45 Urine Nitrite Neg (Negative) 11/16/20 01:45 Urine Bilirubin Neg (Negative) 11/16/20 01:45 Urine Urobilinogen 2.0 mg/dL (<2.0) 11/16/20 01:45 Ur Leukocyte Esterase Neg (Negative) 11/16/20 01:45 Urine WBC (Auto) 2.0 /HPF (0.0-6.0) 11/16/20 01:45 Urine RBC (Auto) 1.0 /HPF (0.0-6.0) 11/16/20 01:45 Urine Bacteria (Auto) 1+ /HPF (Negative) 11/16/20 01:45 Urine Mucus 3+ /HPF 11/16/20 01:45 Coronavirus (PCR) Positive (Negative) A 11/16/20 Unknown Microbiology: Microbiology 11/15/20 10:39 Peripheral/Venous Blood Culture - Final NO GROWTH AFTER 5 DAYS 11/15/20 10:39 Peripheral/Venous Blood Culture - Final NO GROWTH AFTER 5 DAYS - Diagnostic Impressions Diagnostic Impressions: Echocardiogram 11/16/20 10:34 Transthoracic Echocardiogram Indication: Shortness of breath-COVID BP: 108/77 HR: 92 Conclusions *Global left ventricular systolic function is normal. *The estimated ejection fraction is 60-65%. *Mild to moderate concentric left ventricular hypertrophy is observed. *There is trace of mitral regurgitation. *There is mild to moderate tricuspid regurgitation. *There is evidence of mild pulmonary hypertension. *The right ventricular systolic pressure is calculated at 31 mmHg. Findings Left Ventricle: The left ventricular chamber size is normal. Mild to moderate concentric left ventricular hypertrophy is observed. Global left ventricular systolic function is normal. The estimated ejection fraction is 60-65%. Left Atrium: The left atrial chamber size is normal. Right Ventricle: The right ventricular cavity size is normal. The right ventricular global systolic function is normal. Right Atrium: The right atrial cavity size is normal. Aortic Valve: The aortic valve is trileaflet. There is no evidence of aortic regurgitation. There is no evidence of aortic stenosis. Mitral Valve: The mitral valve leaflets appear normal. There is trace of mitral regurgitation. There is no evidence of mitral stenosis. Tricuspid Valve: The tricuspid valve leaflets are normal. There is mild to moderate tricuspid regurgitation. The right ventricular systolic pressure is calculated at 31 mmHg. There is evidence of mild pulmonary hypertension. Pulmonic Valve: There is trace pulmonic regurgitation. Pericardium: There is no pericardial effusion. Aorta: There is no dilatation of the ascending aorta. There is no dilatation of the aortic root. Venous: The inferior vena cava appears normal in size. Measurements Chambers 2D Name Value Normal Range IVSd (2D) 0.81 cm (0.6 - 1.1) LVPWd (2D) 0.79 cm (0.6 - 1.1) LVIDd (2D) 4.22 cm (3.7 - 5.6) LVIDs (2D) 3.1 cm (2 - 3.8) LV FS (2D) 26.71 % - EF Teichholz (2D) 52.55 % - Ao root diameter (2D) 3.34 cm (2 - 3.7) Volumes/Mass Name Value Normal Range LA ESV SP 4CH (A/L) 10.87 ml - LA ESV SP 2CH (A/L) 18.74 ml - LA ESV BP (A/L) 16.38 ml - LA ESV BP (A/L) index 8.62 ml/m2 - LA ESV SP 4CH (MOD) 10.32 ml - LA ESV SP 2CH (MOD) 17.66 ml - LA ESV BP (MOD) 15.12 ml - LA ESV BP (MOD) index 7.96 ml/m2 - Diastolic/Systolic Function Name Value Normal Range MV E-wave Vmax 0.76 m/sec - MV deceleration time 133.63 msec - MV A-wave Vmax 1.1 m/sec - MV E:A ratio 0.69 ratio - Aortic Valve Name Value Normal Range AV Vmax 1.44 m/sec - AV VTI 22.94 cm - AV peak gradient 8.33 mmHg - AV mean gradient 4.73 mmHg - LVOT diameter 2.2 cm - LVOT Vmax 1.04 m/sec - LVOT VTI 18.88 cm - LVOT peak gradient 4.34 mmHg - LVOT mean gradient 2.31 mmHg - SV LVOT 72.05 ml - EVANGELISTA (continuity Vmax) 2.75 cm2 - EVANGELISTA (continuity VTI) 3.14 cm2 - Tricuspid Valve Name Value Normal Range TR Vmax 2.64 m/sec - TR peak gradient 28 mmHg - RAP 3 mmHg - RVSP 31 mmHg - Gupta/IV: Voiding Method Urinal IV Catheter Type [Left Peripheral IV Antecubital] Active Medications - Current Medications Current Medications: Generic Name Dose Route Start Last Admin Trade Name Freq PRN Reason Stop Dose Admin Acetaminophen 650 mg 11/15/20 23:55 11/18/20 22:19 Acetaminophen 325 Mg Tab PO 650 mg Q4H PRN Administration Pain MILD(1-3)/Fever >100.5/BUTTS Enoxaparin Sodium 80 mg 11/16/20 10:00 11/20/20 21:55 Enoxaparin 80 Mg/0.8 Ml Inj SUB-Q 80 mg Q12HR RAEANN Administration Famotidine 20 mg 11/15/20 23:45 11/20/20 21:56 Famotidine 20 Mg Tab PO 20 mg BID RAEANN Administration Hydromorphone HCl 0.5 mg 11/15/20 23:55 Hydromorphone 1 Mg/1 Ml Inj IV Q3H PRN Pain , Severe (7-10) Insulin Glargine 30 units 11/21/20 08:00 Insulin Glargine 100 Units/Ml SUB-Q QHS RAEANN Insulin Human Lispro 0 unit 11/16/20 07:30 11/20/20 23:29 Insulin Lispro 100 Unit/Ml SUB-Q 8 unit ACHS RAEANN Administration Protocol Insulin Human Regular 10 units 11/21/20 07:59 Insulin Regular, Human 100 Units/1 Ml SUB-Q 11/21/20 08:00 ONCE ONE Methylprednisolone Sodium Succinate 60 mg 11/20/20 12:00 11/21/20 06:16 Methylprednisolone Sod Succinate 125 Mg/2 Ml Inj IV 60 mg Q6HR RAEANN Administration Metoclopramide HCl 10 mg 11/15/20 23:55 Metoclopramide 10 Mg/2 Ml Inj IV Q6H PRN Nausea And Vomiting Ondansetron HCl 4 mg 11/15/20 23:55 Ondansetron 4 Mg/2 Ml Inj IV Q8H PRN Nausea And Vomiting Oxycodone/Acetaminophen 1 tab 11/15/20 23:55 Oxycodone /Acetaminophen 5-325mg Tab PO Q6H PRN Pain, Moderate (4-6) Sodium Chloride 10 ml 11/16/20 10:00 11/20/20 21:57 Sodium Chloride 0.9% 10 Ml Flush Syringe IV 10 ml BID RAEANN Administration Sodium Chloride 10 ml 11/15/20 23:55 Sodium Chloride 0.9% 10 Ml Flush Syringe IV PRN PRN LINE FLUSH Nutrition/Malnutrition Assess - Dietary Evaluation Nutrition/Malnutrition Findings: Nutrition Notes Start: 11/20/20 12:03 Freq: Status: Active Protocol: Document 11/20/20 12:03 CW (Rec: 11/20/20 12:29 CW [id number]) Nutrition Notes Need for Assessment generated from: LOS Initial or Follow up Assessment Current Diagnosis Sepsis,Hyperlipidemia Other Pertinent Diagnosis Supsceted Covid 19, PNA, acute RF, hyperglycemia Current Diet Consistent Carbohydrate Labs/Tests 11/20/20: NA 132, BUN 26 Cr. 0 .5 BG 179 Pertinent Medications Lasix, NS 50 ml/hr x 24 hours, lantus, humulog, reglan, decadron Height 5 ft 6 in Weight 72.5 kg Usual Body Weight 80.5 kg [place] Body Weight (kg) 64.54 BMI 25.7 Weight change and time frame 17.6 lbs weight loss x 1 week (11%) Weight Status Overweight Subjective/Other Information Screen for LOS. Pt has a fair PO intake and requires feeding assistance per RN. No N/V/D/C . RN reports recent nm. No trouble with chewing or swallowing reported. Pt has elevated BG. Recommend change ONS to glucerna from ensure enlive. Elevated BG may also be d/t usage of decadron. Some weight change may be related to lasix usage. Weight on 11/15 was 80.5 indicating 17 lb weight loss, likely partially d/t fluid overload. Percent of energy/protein needs met: 71%/113% Burn Absent Trauma Absent GI Symptoms None Difficulty In Swallowing,Chewing Food Allergy No Current % PO Fair (50-74%) Minimum of two criteria Yes Energy Intake (severe) < or equal to 50% Estimated Energy Requirement > or equal to 5 days Interpretation of Weight Loss (severe) >2% in 1 week #2 Nutrition Diagnosis Malnutrition Etiology acute illness As Evidenced by Signs and Symptoms siginificant weight loss of 11 % in 1 week and PO intake <50% for >5 days. #1 Nutrition Diagnosis Unintended weight loss Etiology need for feeding assitance As Evidenced by Signs and Symptoms RN reports pt needing feeding assistance, PO intake of 50% of meals provided Is patient on ventilator? No Is Patient Ambulatory and/or Out of Bed Yes REE-([facility]-ambulatory/OOB) [ 1934.075 [id number]] Calculation Used for Recommendations [facility] Additional Notes protein needs: 58 - 73g (0.8 - 1 g/kgBW) fluid needs: 1 mk/kcal or per MD order Nutrition Intervention Change Diet Order: Continue consistent carbohydrate diet d/c Ensure enlive Vanilla Add Supplement/Snack (indicate name/kcal Glucerna Vanilla BID /protein ) Provides kCal: 440 Provides Protein (gm) 20 Goal #1 PO intake of at least 75% of kcal and protein needs Goal #2 Maintain body weight Anticipated Discharge Needs: Consistent carbohydrate diet Glucerna QD Follow-Up By: 11/30/20 Additional Comments F/U for ONS tolerance, Increased PO intake
[2020-11-21] MEDS: FAMOTIDINE 20 MG TAB PO SCH ×2 (10:34→22:18)
[2020-11-21] MEDS: INSULIN LISPRO 100 UNIT/ML SUB-Q SCH ×4 (10:35→22:24)
[2020-11-21] MEDS: ENOXAPARIN 80 MG/0.8 ML INJ SUB-Q SCH ×2 (10:35→21:14)
[2020-11-21] MEDS: dexAMETHasone 4 MG/ML VIAL IV SCH (10:44)
--- NOTE | 2020-11-21 14:28 | Progress Note ---
Assessment and Plan Assessment and Plan 59 y/o male with acute respiratory failure, abnormal CXR and abnormal lab studies. 11/21/2020: No significant change in his condition remain hypoxic with Covid 19 pneumonia. Saturations are 88 to 92% on 100% nonrebreather mask. As patient remained awake and responsive and alert and no acute distress we will continue with current regimen and nonrebreather mask. Total critical care time 31-minute 11/20/20: WIll change to solumedrol 60q6 today. Hold on lasix today. Given his increasing oxygen requirement, will likely end up intubated. OVerall prognosis is very poor. 11/19/20: lasix 40mg IV x1 today. Will speak with ID but may consider increasing steroids to see if this will help with oxygenation. Continue Remdesivir. Prognosis remains guarded. 11/18/20: Continue bipap, goal is to attempt to prevent prolong intubation for as long as possible. Lasix again today. Steroids and Remdesivir. Guarded Prognosis. 11/17/20: Continue bipap therapy. Monitor mental state. High risk for Intubation. Continue BID anticoagulation. Prone if able. BNP was elevated but not grossly elevated. Will still give lasix with hopes of achieving net negative state. STeroids and remdesivir. Overall prognosis is guarded, extremely guarded. 1. Pulm- Agree with concern for covid. Agree with empiric abx but procal is only mildly elevated. Await cultures. Continue bipap therapy for now but will need to monitor closely. [facility] has ordered CTA, but I spoke with pharmacy and we will empirically treat with BID lovenox therapy. COntinue empiric steroid therapy for COVID until studies back. Not sure that he will be able to prone on bipap therapy. MOnitor volume status and run as dry as possible. 2. Renal-normal function but all electrolytes abnormal. HYponatremia and Hypochloremia volume up vs volume down. Sent BNP. Would suggest obtaning echo as well. Not sure what to make of elevated lactate unless that is from increased work of breathing or damage to other tissue unknown. May need to check LFT's and Coags as well. 3. Guarded Prognosis. Subjective Date of service: 11/21/20 Interval history: Patient remained awake and responsive 100% nonrebreather mask with saturation between 88 and 92%. Objective Vital Signs - 12hr 11/21/20 11/21/20 11/21/20 03:00 03:46 04:00 Temperature 97.5 F L Pulse Rate 71 62 87 Pulse Rate [ 87 From Monitor] Respiratory 46 H 27 H 40 H Rate Blood Pressure 110/72 110/72 O2 Sat by Pulse 91 94 89 Oximetry 11/21/20 11/21/20 11/21/20 04:01 05:00 06:00 Temperature Pulse Rate 81 69 61 Pulse Rate [ From Monitor] Respiratory 26 H 34 H 26 H Rate Blood Pressure 119/81 114/77 103/67 O2 Sat by Pulse 90 91 94 Oximetry 11/21/20 11/21/20 11/21/20 07:00 08:16 11:58 Temperature 97.9 F Pulse Rate 63 Pulse Rate [ From Monitor] Respiratory 32 H Rate Blood Pressure 113/72 O2 Sat by Pulse 92 87 Oximetry Constitutional: alert ENT: other (full face mask bipap being worn) Ascultation: Bilateral: rales Percussion: Bilateral: not dull Cardiovascular: regular rate and rhythm Gastrointestinal: soft, non-tender CBC and BMP: 11/16/20 05:29 11/20/20 08:50 ABG, PT/INR, D-dimer: ABG ABG pH 7.446 (7.320-7.450) 11/15/20 11:20 POC ABG pCO2 29.9 mmHg (32.0-48.0) L 11/15/20 11:20 POC ABG pO2 137.3 mmHg (83-108) H 11/15/20 11:20 POC ABG HCO3 20.1 11/15/20 11:20 PT/INR, D-dimer D-Dimer > 20661 ng/mlDDU (0-234) H 11/15/20 10:39 Abnormal lab findings: Abnormal Labs 11/15/20 11/15/20 11/15/20 10:39 10:39 10:39 WBC 14.3 H RBC 5.17 H Lymph % (Auto) 7.8 L [place] % (Auto) 7.6 H Lymph # (Auto) 1.1 L [place] # (Auto) 1.1 H Baso # (Auto) Seg Neutrophils % 83.3 H Seg Neutrophils # 11.9 H D-Dimer POC ABG pCO2 POC ABG pO2 ABG Sodium ABG Glucose Sodium 128 L Chloride 96.0 L Carbon Dioxide BUN Creatinine 0.7 L Glucose 238 H POC Glucose Hemoglobin A1c Lactic Acid 4.10 H* Calcium 7.0 L Ferritin Total Bilirubin 1.40 H AST 49 H ALT 70 H Alkaline Phosphatase Lactate Dehydrogenase 663 H C-Reactive Protein 19.80 H Albumin 2.9 L Arterial Blood Glucose Arterial Blood Ionized Calcium Ur Specific [place] Coronavirus (PCR) 11/15/20 11/15/20 11/15/20 10:39 10:39 11:20 WBC RBC Lymph % (Auto) [place] % (Auto) Lymph # (Auto) [place] # (Auto) Baso # (Auto) Seg Neutrophils % Seg Neutrophils # D-Dimer > 33881 H POC ABG pCO2 29.9 L POC ABG pO2 137.3 H ABG Sodium 126.5 L ABG Glucose 248 H Sodium Chloride Carbon Dioxide BUN Creatinine Glucose POC Glucose Hemoglobin A1c Lactic Acid Calcium Ferritin 672.8 H Total Bilirubin AST ALT Alkaline Phosphatase Lactate Dehydrogenase C-Reactive Protein Albumin Arterial Blood Glucose 248 H Arterial Blood Ionized Calcium 4.1 L Ur Specific [place] Coronavirus (PCR) 11/15/20 11/15/20 11/16/20 13:41 23:41 01:45 WBC RBC Lymph % (Auto) [place] % (Auto) Lymph # (Auto) [place] # (Auto) Baso # (Auto) Seg Neutrophils % Seg Neutrophils # D-Dimer POC ABG pCO2 POC ABG pO2 ABG Sodium ABG Glucose Sodium Chloride Carbon Dioxide BUN Creatinine Glucose POC Glucose 284 H Hemoglobin A1c Lactic Acid 2.30 H* Calcium Ferritin Total Bilirubin AST ALT Alkaline Phosphatase Lactate Dehydrogenase C-Reactive Protein Albumin Arterial Blood Glucose Arterial Blood Ionized Calcium Ur Specific [place] 1.037 H Coronavirus (PCR) 11/16/20 11/16/20 11/16/20 05:29 05:29 05:29 WBC 12.9 H RBC Lymph % (Auto) 4.5 L [place] % (Auto) Lymph # (Auto) 0.6 L [place] # (Auto) Baso # (Auto) 0.2 H Seg Neutrophils % 89.8 H Seg Neutrophils # 11.5 H D-Dimer POC ABG pCO2 POC ABG pO2 ABG Sodium ABG Glucose Sodium 131 L Chloride Carbon Dioxide 21 L BUN 23 H Creatinine 0.6 L Glucose 342 H POC Glucose Hemoglobin A1c Lactic Acid 2.60 H* Calcium 7.0 L Ferritin Total Bilirubin AST ALT Alkaline Phosphatase Lactate Dehydrogenase C-Reactive Protein Albumin 2.4 L Arterial Blood Glucose Arterial Blood Ionized Calcium Ur Specific [place] Coronavirus (PCR) 11/16/20 11/16/20 11/16/20 05:29 08:11 12:11 WBC RBC Lymph % (Auto) [place] % (Auto) Lymph # (Auto) [place] # (Auto) Baso # (Auto) Seg Neutrophils % Seg Neutrophils # D-Dimer POC ABG pCO2 POC ABG pO2 ABG Sodium ABG Glucose Sodium Chloride Carbon Dioxide BUN Creatinine Glucose POC Glucose 329 H 320 H Hemoglobin A1c 11.7 H Lactic Acid Calcium Ferritin Total Bilirubin AST ALT Alkaline Phosphatase Lactate Dehydrogenase C-Reactive Protein Albumin Arterial Blood Glucose Arterial Blood Ionized Calcium Ur Specific [place] Coronavirus (PCR) 11/16/20 11/16/20 11/16/20 16:13 21:29 Unknown WBC RBC Lymph % (Auto) [place] % (Auto) Lymph # (Auto) [place] # (Auto) Baso # (Auto) Seg Neutrophils % Seg Neutrophils # D-Dimer POC ABG pCO2 POC ABG pO2 ABG Sodium ABG Glucose Sodium Chloride Carbon Dioxide BUN Creatinine Glucose POC Glucose 257 H 376 H Hemoglobin A1c Lactic Acid Calcium Ferritin Total Bilirubin AST ALT Alkaline Phosphatase Lactate Dehydrogenase C-Reactive Protein Albumin Arterial Blood Glucose Arterial Blood Ionized Calcium Ur Specific [place] Coronavirus (PCR) Positive A 11/17/20 11/17/20 11/17/20 07:42 12:07 17:25 WBC RBC Lymph % (Auto) [place] % (Auto) Lymph # (Auto) [place] # (Auto) Baso # (Auto) Seg Neutrophils % Seg Neutrophils # D-Dimer POC ABG pCO2 POC ABG pO2 ABG Sodium ABG Glucose Sodium Chloride Carbon Dioxide BUN Creatinine Glucose POC Glucose 231 H 380 H 302 H Hemoglobin A1c Lactic Acid Calcium Ferritin Total Bilirubin AST ALT Alkaline Phosphatase Lactate Dehydrogenase C-Reactive Protein Albumin Arterial Blood Glucose Arterial Blood Ionized Calcium Ur Specific [place] Coronavirus (PCR) 11/17/20 11/18/20 11/18/20 21:53 04:25 07:45 WBC RBC Lymph % (Auto) [place] % (Auto) Lymph # (Auto) [place] # (Auto) Baso # (Auto) Seg Neutrophils % Seg Neutrophils # D-Dimer POC ABG pCO2 POC ABG pO2 ABG Sodium ABG Glucose Sodium 136 L Chloride Carbon Dioxide BUN 24 H Creatinine 0.6 L Glucose 212 H POC Glucose 293 H 216 H Hemoglobin A1c Lactic Acid Calcium 7.4 L Ferritin Total Bilirubin AST 41 H ALT Alkaline Phosphatase 142 H Lactate Dehydrogenase C-Reactive Protein Albumin 2.3 L Arterial Blood Glucose Arterial Blood Ionized Calcium Ur Specific [place] Coronavirus (PCR) 11/18/20 11/18/20 11/18/20 12:28 15:58 21:37 WBC RBC Lymph % (Auto) [place] % (Auto) Lymph # (Auto) [place] # (Auto) Baso # (Auto) Seg Neutrophils % Seg Neutrophils # D-Dimer POC ABG pCO2 POC ABG pO2 ABG Sodium ABG Glucose Sodium Chloride Carbon Dioxide BUN Creatinine Glucose POC Glucose 165 H 220 H 311 H Hemoglobin A1c Lactic Acid Calcium Ferritin Total Bilirubin AST ALT Alkaline Phosphatase Lactate Dehydrogenase C-Reactive Protein Albumin Arterial Blood Glucose Arterial Blood Ionized Calcium Ur Specific [place] Coronavirus (PCR) 11/19/20 11/19/20 11/19/20 05:35 07:40 12:39 WBC RBC Lymph % (Auto) [place] % (Auto) Lymph # (Auto) [place] # (Auto) Baso # (Auto) Seg Neutrophils % Seg Neutrophils # D-Dimer POC ABG pCO2 POC ABG pO2 ABG Sodium ABG Glucose Sodium 132 L Chloride Carbon Dioxide BUN 25 H Creatinine 0.5 L Glucose 179 H POC Glucose 149 H 306 H Hemoglobin A1c Lactic Acid Calcium 7.5 L Ferritin Total Bilirubin AST ALT Alkaline Phosphatase 139 H Lactate Dehydrogenase C-Reactive Protein Albumin 2.4 L Arterial Blood Glucose Arterial Blood Ionized Calcium Ur Specific [place] Coronavirus (PCR) 11/19/20 11/19/20 11/20/20 16:17 21:25 08:30 WBC RBC Lymph % (Auto) [place] % (Auto) Lymph # (Auto) [place] # (Auto) Baso # (Auto) Seg Neutrophils % Seg Neutrophils # D-Dimer POC ABG pCO2 POC ABG pO2 ABG Sodium ABG Glucose Sodium Chloride Carbon Dioxide BUN Creatinine Glucose POC Glucose 364 H 347 H 141 H Hemoglobin A1c Lactic Acid Calcium Ferritin Total Bilirubin AST ALT Alkaline Phosphatase Lactate Dehydrogenase C-Reactive Protein Albumin Arterial Blood Glucose Arterial Blood Ionized Calcium Ur Specific [place] Coronavirus (PCR) 11/20/20 11/20/20 11/20/20 08:50 11:32 16:19 WBC RBC Lymph % (Auto) [place] % (Auto) Lymph # (Auto) [place] # (Auto) Baso # (Auto) Seg Neutrophils % Seg Neutrophils # D-Dimer POC ABG pCO2 POC ABG pO2 ABG Sodium ABG Glucose Sodium 132 L Chloride 97.6 L Carbon Dioxide BUN 26 H Creatinine 0.5 L Glucose 201 H POC Glucose 296 H 327 H Hemoglobin A1c Lactic Acid Calcium 7.9 L Ferritin Total Bilirubin AST ALT Alkaline Phosphatase 137 H Lactate Dehydrogenase C-Reactive Protein Albumin 2.6 L Arterial Blood Glucose Arterial Blood Ionized Calcium Ur Specific [place] Coronavirus (PCR) 11/20/20 11/21/20 22:09 07:59 WBC RBC Lymph % (Auto) [place] % (Auto) Lymph # (Auto) [place] # (Auto) Baso # (Auto) Seg Neutrophils % Seg Neutrophils # D-Dimer POC ABG pCO2 POC ABG pO2 ABG Sodium ABG Glucose Sodium Chloride Carbon Dioxide BUN Creatinine Glucose POC Glucose 311 H 218 H Hemoglobin A1c Lactic Acid Calcium Ferritin Total Bilirubin AST ALT Alkaline Phosphatase Lactate Dehydrogenase C-Reactive Protein Albumin Arterial Blood Glucose Arterial Blood Ionized Calcium Ur Specific [place] Coronavirus (PCR)
[2020-11-21] MEDS ORDERED: MINERAL OIL/PETROLATUM, WHITE OPHTH OINT 3.5 GM OU PRN (21:53)
[2020-11-21] MEDS ORDERED: LIP THERAPY VASELINE TP PRN (21:53)
[2020-11-21] MEDS: INSULIN GLARGINE 100 UNITS/ML SUB-Q SCH (22:18)
--- NOTE | 2020-11-21 22:34 | Procedure Note ---
Date of procedure: 11/21/20 Pre-op diagnosis: Acute respiratory failure Post-op diagnosis: same Procedure: The patient was evaluated in the emergency department for symptoms described in the history of present illness. He/she was evaluated in the context of the global COVID-19 pandemic, which necessitated consideration that the patient might be at risk for infection with the virus that causes COVID-19. Institutional protocols and algorithms that pertain to the evaluation of tomás ents at risk for COVID-19 are in a state of rapid change based on information released by regulatory bodies including the CDC and federal and state organizations. These policies and algorithms were followed during the patient's care in the emergency department. Please note that these policies, procedures and recommendations changed on a rapid basis. I received a call from covering critical care/pulmonology, Dr. Angie Contreras, with a request to intubate this patient for respiratory failure, refractory to multiple modalities, including prone ventilation, high flow, and BiPAP. Patient emergently, administratively consented by myself and the aforementioned physician for intubation. During the entire procedure, I had on maximum barrier precautions. Upon initial evaluation, patient on a BiPAP, breathing approximately 40 times per minute, saturating in the mid 80s, awake, in severe respiratory distress. Explained to patient in Nepali that we recommended medication assisted intubation for respiratory support. The patient gave verbal emergent consent. Patient induced with ketamine, 100 mg, paralyzed with rocuronium, 100 mg, receives bzz-brrem-lubl ventilation with a Peep valve at 10 mmHg, video laryngoscopy is performed with a curved S4 video laryngoscope blade, and an 8.0 endotracheal tube is easily inserted under direct visualization. Patient has appropriate post capnography color change, condensation noted on the tube, equal breath sounds are noted bilaterally. We will defer post intubation management and ventilator settings, post intubation sedation to the inpatient team and critical care team. Current prognosis is critical. Anesthesia: other (Rapid sequence intubation) Surgeon: SONI MUHAMMAD Film Cleaner: GABBY DAVIS Estimated blood loss: none Pathology: none Specimen disposition: other (no specimen) Condition: critical Disposition: ICU
--- NOTE | 2020-11-21 22:56 | XRay Report ---
CHEST 1 VIEW 11/21/2020 10:38 PM INDICATION / CLINICAL INFORMATION: ETT placement. COMPARISON: 11/15/20 FINDINGS: SUPPORT DEVICES: Endotracheal tube has been placed with the tip 3.3 cm above the matthew. Esophagogast sofía tube is present in the stomach. HEART / MEDIASTINUM: No significant abnormality. LUNGS / PLEURA: Interval worsening of bilateral pulmonary opacities. No pneumothorax. ADDITIONAL FINDINGS: No significant additional findings. IMPRESSION: 1. Endotracheal tube in expected position. 2. Interval worsening. Signer Name: Ranjeet Lockhart MD Signed: 11/21/2020 10:51 PM Workstation Name: [id number]
[2020-11-21] MEDS: MIDAZOLAM 100 MG in SODIUM CHLORIDE 0.9% 80 ML IV SCH (23:15)
[2020-11-21] MEDS: fentaNYL DRIP Premix 2,000 MCG/100 ML BAG IV SCH (23:29)
[2020-11-22] MEDS: methylPREDNISolone Sod Succinate 125 MG/2 ML INJ IV SCH ×4 (01:29→18:19)
[2020-11-22] MEDS: SODIUM CHLORIDE 0.9% 1000 ML 1,000 ML IV SCH ×2 (02:57→11:27)
--- NOTE | 2020-11-22 03:23 | XRay Report ---
CHEST 1 VIEW 11/22/2020 2:14 AM INDICATION / CLINICAL INFORMATION: follow up respiratory failure. COMPARISON: 11/21/20 FINDINGS: SUPPORT DEVICES: Stable, satisfactory device positioning. HEART / MEDIASTINUM: Stable. LUNGS / PLEURA: Bilateral pulmonary opacities are unchanged. No pneumothorax. ADDITIONAL FINDINGS: No significant additional findings. IMPRESSION: 1. No significant change. Signer Name: Ranjeet Lockhart MD Signed: 11/22/2020 3:18 AM Workstation Name: [id number]
--- NOTE | 2020-11-22 03:35 | XRay Report ---
ABDOMEN 1 VIEW 11/22/2020 2:15 AM INDICATION / CLINICAL INFORMATION: OGT placement/verification. COMPARISON: None available. FINDINGS: TUBES / LINES: Esophagogastric tube is present in the distal stomach near the pylorus. BOWEL GAS PATTERN: No significant abnormality. FREE AIR / EXTRALUMINAL GAS: None. ADDITIONAL FINDINGS: No significant additional findings. IMPRESSION: 1. Esophagogastric tube in expected position. Signer Name: Ranjeet Lockhart MD Signed: 11/22/2020 3:30 AM Workstation Name: [id number]
[2020-11-22 05:49] LABS: C-Reactive Protein 2.8 mg/dL (0.00-1.30)
[2020-11-22] MEDS: INSULIN LISPRO 100 UNIT/ML SUB-Q SCH ×3 (06:11→18:19)
[2020-11-22] MEDS ORDERED: INSULIN REGULAR, HUMAN 100 UNITS/1 ML SUB-Q NR (08:18)
--- NOTE | 2020-11-22 08:25 | Progress Note ---
Assessment and Plan Assessment and plan: 59-year-old female presents with shortness of breath cough fever weakness. "1 to 2 days. Patient has severe hypoxia per EMS. Her saturations are in the low 80s. With all oxygen and nonrebreather came down to low 90s. Patient denies any past medical history. Exposure to coronavirus present. Does not have a primary care physician. 2/1: Patient continues on BiPAP throughout the night. Labs are remarkable for hypoxia with improving renal function but lactic acidosis without fever. CTA has been ordered to rule out pulmonary embolism. I agree with increasing enoxaparin to twice daily full dose for empiric treatment of pulmonary embolism. Will obtain ID consultation on further evaluation for possible underlying pneumonia versus COVID-19. We will also obtain echocardiogram for evaluation. Will discontinue fluids at this time. 2/2; Continue supportive care, Patient remains with very guarded prognosis, remains on BiPAP, continues on Remdesivir, and steroids. Will continue antico agulation, unable to get CTA Chest due to patients unstable clinical status. Will adjust insulin for better blood glucose 2/3: Continues on BIPAP, no clear improvement at this time. Will continue richelle roids therapy Remdesivir and also Full anticoagulation at this time. Will update family. Discussed with Aircraft Parts Assembler. 2/4: Taking a break from the BiPAP on high flow and nonrebreather 100% with saturation of 90% becomes hypoxic with any movement. Aircraft Parts Assembler input noted will get a dose of Lasix today. Will await a discussion with ID for possibly increasing steroid. I updated Patient's Cousin, Tayla Esquivel who is the emergency dice table person. Blood sugar remains fluctuating secondary to steriods, Encouraged Prone positioning. Noted with mild hyponatremia we will continue to monitor and manage 2/5: Continue supportive care wean oxygen as tolerated prognosis remains guarded. Encouraged to progress as tolerated. Awaiting labs today. Discussed with nursing staff and patient at bedside. 2/6: Discontinued Dexamethasone as Solumedrol started secondary to increased oxygen demand. Will give additional insulin for better control. Continue oxygen support patient still on high flow. Prognosis still guarded 2/7: Patient was intubated and placed on mechanical ventilation. Continue current medication. Will check a.m. labs today. Noted still with hypotension. Doubt septic shock at this time as patient has no new fever. Will adjust insulin for better blood sugar control. (1) Acute respiratory failure with hypoxia Current Visit: Yes Status: Acute Plan to address problem: Patient on 40% Ventimask Oxygen supplementation as necessary Pulmonary consult requested (2) Sepsis Current Visit: Yes Status: Acute Plan to address problem: Patient has high lactic acid and high white count consistent with sepsis IV antibiotics for now (3) Bilateral pneumonia Current Visit: Yes Status: Acute Qualifiers: Pneumonia type: due to unspecified organism Lung location: unspecified part of lung Qualified Code(s): J18.9 - Pneumonia, unspecified organism Plan to address problem: Patient initiated on IV ceftriaxone and azithromycin Treat as community-acquired pneumonia for now ID consult requested (4) 2019 novel coronavirus infection Current Visit: Yes Status: Acute Plan to address problem: Coronavirus PCR requested Patient initiated on IV Decadron 8 mg every 24 (5) Hyponatremia Current Visit: Yes Status: Acute Plan to address problem: Normal saline for 75 cc/h for 12 hours (6) Transaminitis Current Visit: Yes Status: Acute Plan to address problem: Secondary to Covid infection (7) DVT prophylaxis Current Visit: Yes Status: Acute Plan to address problem: On Lovenox and GI prophylaxis (8) Hyperglycemia Current Visit: Yes Status: Acute Plan to address problem: Patient may be having type 2 diabetes which is undiagnosed Check hemoglobin A1c Accu-Cheks for now and coverage for now May need insulin at the time of discharge The high probability of a clinically significant, sudden or life threatening deterioration of the [pulmonary] system(s) required my full and direct attention, intervention and personal management. The aggregate critical care time was [35] minutes. This time is in addition to time spent performing reported procedures but includes the following: [X] Data Review and interpretation [X] Patient assessment and monitoring of vital signs [X] Documentation [X] Medication orders and management History Interval history: Patient seen and examined overnight patient was intubated due to persistent hypoxia was refractory to high flow combined with nonrebreather Hospitalist Physical - Physical exam Narrative exam: VITAL SIGNS: Reviewed. GENERAL: The patient appears normally developed, sedated HEAD: No signs of head trauma. EYES: Pupils are equal. EARS: Unable to examine MOUTH: Oropharynx with ET tube in place NECK: No adenopathy, no JVD. CHEST: Chest with diminished breath sounds bilaterally. No wheezes, rales, or rhonchi. CARDIAC: Regular rate and rhythm. S1 and S2, without murmurs, gallops, or rubs. VASCULAR: No Edema. Peripheral pulses normal and equal in all extremities. ABDOMEN: Soft, non tender and non distended. No rebound or guarding, and no masses palpated. Bowel Sounds normal. MUSCULOSKELETAL: Good range of motion of all major joints. Extremities without clubbing, cyanosis or edema. NEUROLOGIC EXAM: Sedated no focal sensory or strength deficits. PSYCHIATRIC: Sedated SKIN: detail exam as documented in skin assessment - Constitutional Vitals: Temp Pulse Resp BP Pulse Ox 97.5 F L 58 L 16 99/67 90 11/22/20 08:00 11/22/20 07:30 11/22/20 07:15 11/22/20 07:15 11/22/20 07:15 General appearance: Present: mild distress, well-nourished HEART Score - HEART Score Troponin: Troponin T < 0.010 ng/mL (0.00-0.029) 11/22/20 Unknown Results - Labs CBC & Chem 7: 11/16/20 05:29 11/20/20 08:50 Labs: Laboratory Last Values WBC 12.9 K/mm3 (4.5-11.0) H 11/16/20 05:29 RBC 4.74 M/mm3 (3.65-5.03) 11/16/20 05:29 Hgb 14.2 gm/dl (11.8-15.2) 11/16/20 05:29 Hct 41.5 % (35.5-45.6) 11/16/20 05:29 MCV 88 fl (84-94) 11/16/20 05:29 MCH 30 pg (28-32) 11/16/20 05:29 MCHC 34 % (32-34) 11/16/20 05:29 RDW 13.3 % (13.2-15.2) 11/16/20 05:29 Plt Count 146 K/mm3 (140-440) 11/16/20 05:29 Lymph % (Auto) 4.5 % (13.4-35.0) L 11/16/20 05:29 [place] % (Auto) 4.3 % (0.0-7.3) 11/16/20 05:29 Eos % (Auto) 0.0 % (0.0-4.3) 11/16/20 05:29 Baso % (Auto) 1.4 % (0.0-1.8) 11/16/20 05:29 Lymph # (Auto) 0.6 K/mm3 (1.2-5.4) L 11/16/20 05:29 [place] # (Auto) 0.6 K/mm3 (0.0-0.8) 11/16/20 05:29 Eos # (Auto) 0.0 K/mm3 (0.0-0.4) 11/16/20 05:29 Baso # (Auto) 0.2 K/mm3 (0.0-0.1) H 11/16/20 05:29 Seg Neutrophils % 89.8 % (40.0-70.0) H 11/16/20 05:29 Seg Neutrophils # 11.5 K/mm3 (1.8-7.7) H 11/16/20 05:29 D-Dimer 1858.36 ng/mlDDU (0-234) H 11/22/20 04:52 ABG pH 7.36 (7.320-7.450) 11/22/20 05:12 POC ABG pCO2 40.7 mmHg (32.0-48.0) 11/22/20 05:12 POC ABG pO2 51.0 mmHg (83-108) L 11/22/20 05:12 POC ABG HCO3 22.5 11/22/20 05:12 POC ABG Base Excess -2.8 11/22/20 05:12 ABG Hemoglobin 14.4 (12.0-17.5) 11/22/20 05:12 ABG Oxyhemoglobin 96.8 (94-98) 11/15/20 11:20 ABG Methemoglobin 0.3 (0.0-1.5) 11/15/20 11:20 ABG Sodium 131.2 mmol/L (136.0-145.0) L 11/22/20 05:12 ABG Potassium 4.6 mmol/L (3.40-4.50) H 11/22/20 05:12 ABG Chloride 100.0 mmol/L (98-107) 11/22/20 05:12 ABG Glucose 317 mg/dL (65-95) H 11/22/20 05:12 Carboxyhemoglobin 1.5 (0.5-1.5) 11/15/20 11:20 FiO2 100 11/22/20 05:12 Sodium 132 mmol/L (137-145) L 11/20/20 08:50 Potassium 4.1 mmol/L (3.6-5.0) 11/20/20 08:50 Chloride 97.6 mmol/L (98-107) L 11/20/20 08:50 Carbon Dioxide 27 mmol/L (22-30) 11/20/20 08:50 Anion Gap 12 mmol/L 11/20/20 08:50 BUN 26 mg/dL (9-20) H 11/20/20 08:50 Creatinine 0.5 mg/dL (0.8-1.3) L 11/20/20 08:50 Estimated GFR > 60 ml/min 11/20/20 08:50 BUN/Creatinine Ratio 52 % 11/20/20 08:50 Glucose 201 mg/dL (75-100) H 11/20/20 08:50 POC Glucose 340 mg/dL (70-105) H 11/22/20 05:39 Hemoglobin A1c 11.7 % (4-6) H 11/16/20 05:29 Lactic Acid 2.60 mmol/L (0.7-2.0) H* 11/16/20 05:29 Calcium 7.9 mg/dL (8.4-10.2) L 11/20/20 08:50 Ferritin 734.2 ng/mL (30.0-300.0) H 11/22/20 04:52 Total Bilirubin 1.00 mg/dL (0.1-1.2) 11/20/20 08:50 AST 40 units/L (5-40) 11/20/20 08:50 ALT 47 units/L (7-56) 11/20/20 08:50 Alkaline Phosphatase 137 units/L (35-129) H 11/20/20 08:50 Lactate Dehydrogenase 404 units/L (91-180) H 11/22/20 04:52 Troponin T < 0.010 ng/mL (0.00-0.029) 11/22/20 Unknown C-Reactive Protein 2.80 mg/dL (0.00-1.30) H 11/22/20 04:52 NT-Pro-B Natriuret Pep 107.2 pg/mL (0-900) 11/17/20 10:21 Total Protein 7.5 g/dL (6.3-8.2) 11/20/20 08:50 Albumin 2.6 g/dL (3.9-5) L 11/20/20 08:50 Albumin/Globulin Ratio 0.5 % 11/20/20 08:50 Procalcitonin 0.51 ng/mL (<0.15) 11/15/20 10:39 Arterial Blood Glucose 317 mg/dL (65-95) H 11/22/20 05:12 Arterial Blood Ionized Calcium 4.4 mg/dL (4.6-5.3) L 11/22/20 05:12 Urine Color [place] (Yellow) 11/16/20 01:45 Urine Turbidity Slightly-cloudy (Clear) 11/16/20 01:45 Urine pH 6.0 (5.0-7.0) 11/16/20 01:45 Ur Specific [place] 1.037 (1.003-1.030) H 11/16/20 01:45 Urine Protein 30 mg/dl mg/dL (Negative) 11/16/20 01:45 Urine Glucose (UA) >=500 mg/dL (Negative) 11/16/20 01:45 Urine Ketones 20 mg/dL (Negative) 11/16/20 01:45 Urine Blood Neg (Negative) 11/16/20 01:45 Urine Nitrite Neg (Negative) 11/16/20 01:45 Urine Bilirubin Neg (Negative) 11/16/20 01:45 Urine Urobilinogen 2.0 mg/dL (<2.0) 11/16/20 01:45 Ur Leukocyte Esterase Neg (Negative) 11/16/20 01:45 Urine WBC (Auto) 2.0 /HPF (0.0-6.0) 11/16/20 01:45 Urine RBC (Auto) 1.0 /HPF (0.0-6.0) 11/16/20 01:45 Urine Bacteria (Auto) 1+ /HPF (Negative) 11/16/20 01:45 Urine Mucus 3+ /HPF 11/16/20 01:45 Coronavirus (PCR) Positive (Negative) A 11/16/20 Unknown - Diagnostic Impressions Diagnostic Impressions: Echocardiogram 11/16/20 10:34 Transthoracic Echocardiogram Indication: Shortness of breath-COVID BP: 108/77 HR: 92 Conclusions *Global left ventricular systolic function is normal. *The estimated ejection fraction is 60-65%. *Mild to moderate concentric left ventricular hypertrophy is observed. *There is trace of mitral regurgitation. *There is mild to moderate tricuspid regurgitation. *There is evidence of mild pulmonary hypertension. *The right ventricular systolic pressure is calculated at 31 mmHg. Findings Left Ventricle: The left ventricular chamber size is normal. Mild to moderate concentric left ventricular hypertrophy is observed. Global left ventricular systolic function is normal. The estimated ejection fraction is 60-65%. Left Atrium: The left atrial chamber size is normal. Right Ventricle: The right ventricular cavity size is normal. The right ventricular global systolic function is normal. Right Atrium: The right atrial cavity size is normal. Aortic Valve: The aortic valve is trileaflet. There is no evidence of aortic regurgitation. There is no evidence of aortic stenosis. Mitral Valve: The mitral valve leaflets appear normal. There is trace of mitral regurgitation. There is no evidence of mitral stenosis. Tricuspid Valve: The tricuspid valve leaflets are normal. There is mild to moderate tricuspid regurgitation. The right ventricular systolic pressure is calculated at 31 mmHg. There is evidence of mild pulmonary hypertension. Pulmonic Valve: There is trace pulmonic regurgitation. Pericardium: There is no pericardial effusion. Aorta: There is no dilatation of the ascending aorta. There is no dilatation of the aortic root. Venous: The inferior vena cava appears normal in size. Measurements Chambers 2D Name Value Normal Range IVSd (2D) 0.81 cm (0.6 - 1.1) LVPWd (2D) 0.79 cm (0.6 - 1.1) LVIDd (2D) 4.22 cm (3.7 - 5.6) LVIDs (2D) 3.1 cm (2 - 3.8) LV FS (2D) 26.71 % - EF Teichholz (2D) 52.55 % - Ao root diameter (2D) 3.34 cm (2 - 3.7) Volumes/Mass Name Value Normal Range LA ESV SP 4CH (A/L) 10.87 ml - LA ESV SP 2CH (A/L) 18.74 ml - LA ESV BP (A/L) 16.38 ml - LA ESV BP (A/L) index 8.62 ml/m2 - LA ESV SP 4CH (MOD) 10.32 ml - LA ESV SP 2CH (MOD) 17.66 ml - LA ESV BP (MOD) 15.12 ml - LA ESV BP (MOD) index 7.96 ml/m2 - Diastolic/Systolic Function Name Value Normal Range MV E-wave Vmax 0.76 m/sec - MV deceleration time 133.63 msec - MV A-wave Vmax 1.1 m/sec - MV E:A ratio 0.69 ratio - Aortic Valve Name Value Normal Range AV Vmax 1.44 m/sec - AV VTI 22.94 cm - AV peak gradient 8.33 mmHg - AV mean gradient 4.73 mmHg - LVOT diameter 2.2 cm - LVOT Vmax 1.04 m/sec - LVOT VTI 18.88 cm - LVOT peak gradient 4.34 mmHg - LVOT mean gradient 2.31 mmHg - SV LVOT 72.05 ml - EVANGELISTA (continuity Vmax) 2.75 cm2 - EVANGELISTA (continuity VTI) 3.14 cm2 - Tricuspid Valve Name Value Normal Range TR Vmax 2.64 m/sec - TR peak gradient 28 mmHg - RAP 3 mmHg - RVSP 31 mmHg - Gupta/IV: Voiding Method Indwelling Catheter IV Catheter Type [Left Peripheral IV Antecubital] Active Medications - Current Medications Current Medications: Generic Name Dose Route Start Last Admin Trade Name Freq PRN Reason Stop Dose Admin Acetaminophen 650 mg 11/15/20 23:55 11/18/20 22:19 Acetaminophen 325 Mg Tab PO 650 mg Q4H PRN Administration Pain MILD(1-3)/Fever >100.5/BUTTS Enoxaparin Sodium 80 mg 11/16/20 10:00 11/21/20 21:14 Enoxaparin 80 Mg/0.8 Ml Inj SUB-Q 80 mg Q12HR RAEANN Administration Famotidine 20 mg 11/15/20 23:45 11/21/20 22:18 Famotidine 20 Mg Tab PO Not Given BID RAEANN Fentanyl 50 mcg 11/21/20 21:53 Fentanyl 100 Mcg/2 Ml Inj IV Q10MIN PRN ANALGESIA Hydromorphone HCl 0.5 mg 11/15/20 23:55 11/21/20 21:13 Hydromorphone 1 Mg/1 Ml Inj IV 0.5 mg Q3H PRN Administration Pain , Severe (7-10) Hydrophilic Ointment 1 applic 11/21/20 21:53 Lip Therapy Vaseline TP Q2HR PRN Dry Lips Fentanyl Citrate 2,000 mcg in 100 mls @ 3.625 mls/hr 11/21/20 22:00 11/22/20 01:18 Fentanyl Drip Premix IV 1 mcg/kg/hr TITR RAEANN 3.625 mls/hr Titration Protocol 1 MCG/KG/HR Midazolam HCl 100 mg/ Sodium 100 mls @ 2 mls/hr 11/21/20 22:00 11/22/20 03:05 Chloride IV 1 mg/hr TITR RAEANN 1 mls/hr Titration Protocol 2 MG/HR Sodium Chloride 1,000 mls @ 75 mls/hr 11/22/20 02:00 11/22/20 02:57 Nacl 0.9% 1000 Ml IV 75 mls/hr DIRECT RAEANN Administration Insulin Glargine 30 units 11/21/20 22:00 11/21/20 22:18 Insulin Glargine 100 Units/Ml SUB-Q 30 units QHS RAEANN Administration Insulin Human Lispro 0 unit 11/22/20 06:00 11/22/20 06:11 Insulin Lispro 100 Unit/Ml SUB-Q 8 unit Q6HR RAEANN Administration Protocol Insulin Human Regular 20 units 11/22/20 08:18 Insulin Regular, Human 100 Units/1 Ml SUB-Q 11/22/20 08:19 ONCE ONE Methylprednisolone Sodium Succinate 60 mg 11/20/20 12:00 11/22/20 06:11 Methylprednisolone Sod Succinate 125 Mg/2 Ml Inj IV 60 mg Q6HR RAEANN Administration Metoclopramide HCl 10 mg 11/15/20 23:55 Metoclopramide 10 Mg/2 Ml Inj IV Q6H PRN Nausea And Vomiting Midazolam HCl 2 mg 11/21/20 21:53 Midazolam 2 Mg/2 Ml Inj IV Q10MIN PRN Sedation Multi-Ingred Cream/Lotion/Oil/Oint 1 applic 11/21/20 21:53 Mineral Oil/Petrolatum, White Ophth Oint 3.5 Gm OU Q4HR PRN Dry Eye(s) Ondansetron HCl 4 mg 11/15/20 23:55 Ondansetron 4 Mg/2 Ml Inj IV Q8H PRN Nausea And Vomiting Oxycodone/Acetaminophen 1 tab 11/15/20 23:55 Oxycodone /Acetaminophen 5-325mg Tab PO Q6H PRN Pain, Moderate (4-6) Sodium Chloride 10 ml 11/16/20 10:00 11/21/20 22:44 Sodium Chloride 0.9% 10 Ml Flush Syringe IV Not Given BID RAEANN Sodium Chloride 10 ml 11/15/20 23:55 Sodium Chloride 0.9% 10 Ml Flush Syringe IV PRN PRN LINE FLUSH Nutrition/Malnutrition Assess - Dietary Evaluation Nutrition/Malnutrition Findings: Nutrition Notes Start: 11/20/20 12:03 Freq: Status: Active Protocol: Document 11/20/20 12:03 CW (Rec: 11/20/20 12:29 CW [id number]) Nutrition Notes Need for Assessment generated from: LOS Initial or Follow up Assessment Current Diagnosis Sepsis,Hyperlipidemia Other Pertinent Diagnosis Supsceted Covid 19, PNA, acute RF, hyperglycemia Current Diet Consistent Carbohydrate Labs/Tests 11/20/20: NA 132, BUN 26 Cr. 0 .5 BG 179 Pertinent Medications Lasix, NS 50 ml/hr x 24 hours, lantus, humulog, reglan, decadron Height 5 ft 6 in Weight 72.5 kg Usual Body Weight 80.5 kg [place] Body Weight (kg) 64.54 BMI 25.7 Weight change and time frame 17.6 lbs weight loss x 1 week (11%) Weight Status Overweight Subjective/Other Information Screen for LOS. Pt has a fair PO intake and requires feeding assistance per RN. No N/V/D/C . RN reports recent nm. No trouble with chewing or swallowing reported. Pt has elevated BG. Recommend change ONS to glucerna from ensure enlive. Elevated BG may also be d/t usage of decadron. Some weight change may be related to lasix usage. Weight on 11/15 was 80.5 indicating 17 lb weight loss, likely partially d/t fluid overload. Percent of energy/protein needs met: 71%/113% Burn Absent Trauma Absent GI Symptoms None Difficulty In Swallowing,Chewing Food Allergy No Current % PO Fair (50-74%) Minimum of two criteria Yes Energy Intake (severe) < or equal to 50% Estimated Energy Requirement > or equal to 5 days Interpretation of Weight Loss (severe) >2% in 1 week #2 Nutrition Diagnosis Malnutrition Etiology acute illness As Evidenced by Signs and Symptoms siginificant weight loss of 11 % in 1 week and PO intake <50% for >5 days. #1 Nutrition Diagnosis Unintended weight loss Etiology need for feeding assitance As Evidenced by Signs and Symptoms RN reports pt needing feeding assistance, PO intake of 50% of meals provided Is patient on ventilator? No Is Patient Ambulatory and/or Out of Bed Yes REE-([facility]-ambulatory/OOB) [ 1934.075 [id number]] Calculation Used for Recommendations [facility] Additional Notes protein needs: 58 - 73g (0.8 - 1 g/kgBW) fluid needs: 1 mk/kcal or per MD order Nutrition Intervention Change Diet Order: Continue consistent carbohydrate diet d/c Ensure enlive Vanilla Add Supplement/Snack (indicate name/kcal Glucerna Vanilla BID /protein ) Provides kCal: 440 Provides Protein (gm) 20 Goal #1 PO intake of at least 75% of kcal and protein needs Goal #2 Maintain body weight Anticipated Discharge Needs: Consistent carbohydrate diet Glucerna QD Follow-Up By: 11/30/20 Additional Comments F/U for ONS tolerance, Increased PO intake
--- NOTE | 2020-11-22 10:24 | Progress Note ---
Assessment and Plan Cultures: SARS CoV2 PCR: positive Blood culture: No growth A/P: 59-year-old male: #Bilateral pneumonia: secondary to COVID-19. Labs showed leukocytosis, D-dimer greater than 10,000, ferritin 672, CRP 19.8, LDH 663, creatinine 0.6, procalcitonin 0.51 #Acute hypoxic respiratory failure: Patient is now intubated. FiO2 100%. #Elevated d-dimer: DVT scan negative. Unable to get CTA Chest due to patients unstable clinical status #Transaminitis: secondary to COVID-19. Recs: -Continue steroids x 10 days -Completed antibiotics -Completed remdesivir -Continue prophylactic anticoagulation based on d-dimer per hospital protocol -trend ferritin, LDH, d-dimer, CRP every 2-3 days for risk stratification and to assess disease progression Rula Lara MD [facility] ([facility]) Office [phone] Subjective Date of service: 11/22/20 Principal diagnosis: COVID-19 Interval history: Patient is now intubated, FiO2 100%. Noted bradycardia, hypotension. No fever. Objective - Exam Narrative Exam: Physical exam deferred to minimize COVID-19 transmission during pandemic. - Constitutional Vitals: Vital Signs Temp Pulse Resp BP Pulse Ox 97.5 F L 59 L 18 94/67 90 11/22/20 08:00 11/22/20 10:15 11/22/20 10:15 11/22/20 10:15 11/22/20 10:15 Temperature -Last 24 Hours Temperature 97.5 F Temperature 98.8 F Temperature 97.9 F Temperature 98.2 F Temperature 97.9 F Temperature 97.9 F - Labs CBC & Chem 7: 11/16/20 05:29 11/20/20 08:50 Labs: Abnormal lab results 11/21/20 11/21/20 11/21/20 Range/Units 13:51 16:09 21:34 D-Dimer (0-234) ng/mlDDU ABG pH (7.320-7.450) POC ABG pCO2 (32.0-48.0) mmHg POC ABG pO2 (83-108) mmHg ABG Sodium (136.0-145.0) mmol/L ABG Potassium (3.40-4.50) mmol/L ABG Glucose (65-95) mg/dL POC Glucose 304 H 239 H 279 H (70-105) mg/dL Ferritin (30.0-300.0) ng/mL Lactate Dehydrogenase (91-180) units/L C-Reactive Protein (0.00-1.30) mg/dL Arterial Blood Glucose (65-95) mg/dL Arterial Blood Ionized Calcium (4.6-5.3) mg/dL 11/21/20 11/22/20 11/22/20 Range/Units 23:00 04:52 04:52 D-Dimer 1858.36 H (0-234) ng/mlDDU ABG pH 7.206 L (7.320-7.450) POC ABG pCO2 59.3 H (32.0-48.0) mmHg POC ABG pO2 76.7 L (83-108) mmHg ABG Sodium 133.1 L (136.0-145.0) mmol/L ABG Potassium (3.40-4.50) mmol/L ABG Glucose 320 H (65-95) mg/dL POC Glucose (70-105) mg/dL Ferritin 734.2 H (30.0-300.0) ng/mL Lactate Dehydrogenase (91-180) units/L C-Reactive Protein (0.00-1.30) mg/dL Arterial Blood Glucose 320 H (65-95) mg/dL Arterial Blood Ionized Calcium (4.6-5.3) mg/dL 11/22/20 11/22/20 11/22/20 Range/Units 04:52 05:12 05:39 D-Dimer (0-234) ng/mlDDU ABG pH (7.320-7.450) POC ABG pCO2 (32.0-48.0) mmHg POC ABG pO2 51.0 L (83-108) mmHg ABG Sodium 131.2 L (136.0-145.0) mmol/L ABG Potassium 4.6 H (3.40-4.50) mmol/L ABG Glucose 317 H (65-95) mg/dL POC Glucose 340 H (70-105) mg/dL Ferritin (30.0-300.0) ng/mL Lactate Dehydrogenase 404 H (91-180) units/L C-Reactive Protein 2.80 H (0.00-1.30) mg/dL Arterial Blood Glucose 317 H (65-95) mg/dL Arterial Blood Ionized Calcium 4.4 L (4.6-5.3) mg/dL
[2020-11-22] MEDS: FAMOTIDINE 20 MG TAB PO SCH (11:25)
[2020-11-22] MEDS: ENOXAPARIN 80 MG/0.8 ML INJ SUB-Q SCH ×2 (11:27→21:53)
--- NOTE | 2020-11-22 12:17 | Progress Note ---
Assessment and Plan Assessment and Plan 59 y/o male with acute respiratory failure, abnormal CXR and abnormal lab studies. Evidence of bilateral pneumonia. 11/22/2020: Patient condition deteriorated overnight requiring intubation and now being mechanically ventilated. In spite of mechanical ventilation 100% FiO2 and PEEP of 12 patient remained hypoxic with oxygen saturation ranging from 88 to 92%. We will continue with the ventilatory support. Will try prone positioning see if that helps oxygenation. Prognosis is guarded. Total critical care time 31-minute 11/21/2020: No significant change in his condition remain hypoxic with Covid 19 pneumonia. Saturations are 88 to 92% on 100% nonrebreather mask. As patient remained awake and responsive and alert and no acute distress we will continue with current regimen and nonrebreather mask. Total critical care time 31-minute 11/20/20: WIll change to solumedrol 60q6 today. Hold on lasix today. Given his increasing oxygen requirement, will likely end up intubated. OVerall prognosis is very poor. 11/19/20: lasix 40mg IV x1 today. Will speak with ID but may consider increasing steroids to see if this will help with oxygenation. Continue Remdesivir. Prognosis remains guarded. 11/18/20: Continue bipap, goal is to attempt to prevent prolong intubation for as long as possible. Lasix again today. Steroids and Remdesivir. Guarded Prognosis. 11/17/20: Continue bipap therapy. Monitor mental state. High risk for Intubation. Continue BID anticoagulation. Prone if able. BNP was elevated but not grossly elevated. Will still give lasix with hopes of achieving net negative state. STeroids and remdesivir. Overall prognosis is guarded, extremely guarded. 1. Pulm- Agree with concern for covid. Agree with empiric abx but procal is only mildly elevated. Await cultures. Continue bipap therapy for now but will need to monitor closely. [employer] has ordered CTA, but I spoke with pharmacy and we will empirically treat with BID lovenox therapy. COntinue empiric steroid therapy for COVID until studies back. Not sure that he will be able to prone on bipap therapy. MOnitor volume status and run as dry as possible. 2. Renal-normal function but all electrolytes abnormal. HYponatremia and Hypochloremia volume up vs volume down. Sent BNP. Would suggest obtaning echo as well. Not sure what to make of elevated lactate unless that is from increased work of breathing or damage to other tissue unknown. May need to check LFT's and Coags as well. 3. Guarded Prognosis. Subjective Date of service: 11/22/20 Principal diagnosis: COVID-19 Interval history: Patient remained awake and responsive. Worsening oxygenation last night associated with some respiratory distress and tachypnea requiring intubation. Currently sedated on Versed and fentanyl but remained responsive and comfortable on mechanical ventilator at 100%. With the tidal volume of 500 mL, PEEP 12 and respiratory rate of 30/min. Saturations ranging from 88 to 92% at this setting. Objective Vital Signs - 12hr 11/22/20 11/22/20 11/22/20 00:15 00:30 00:45 Temperature Pulse Rate 92 H 90 85 Respiratory 22 22 18 Rate Blood Pressure Blood Pressure 99/62 91/52 74/49 [Right] O2 Sat by Pulse 85 85 82 L Oximetry 11/22/20 11/22/20 11/22/20 02:42 02:45 03:00 Temperature Pulse Rate 63 63 66 Respiratory 29 H 30 H 26 H Rate Blood Pressure 87/56 79/51 Blood Pressure [Right] O2 Sat by Pulse 92 91 90 Oximetry 11/22/20 11/22/20 11/22/20 03:15 03:30 03:45 Temperature Pulse Rate 64 64 62 Respiratory 30 H 26 H 23 Rate Blood Pressure 74/50 83/45 83/56 Blood Pressure [Right] O2 Sat by Pulse 86 90 87 Oximetry 11/22/20 11/22/20 11/22/20 04:00 04:15 04:30 Temperature 98.8 F Pulse Rate 57 L 60 60 Respiratory 30 H 26 H 23 Rate Blood Pressure 86/58 90/60 92/64 Blood Pressure [Right] O2 Sat by Pulse 87 90 90 Oximetry 11/22/20 11/22/20 11/22/20 04:45 05:00 05:10 Temperature Pulse Rate 59 L 60 58 L Respiratory 20 17 Rate Blood Pressure 94/64 88/58 88/58 Blood Pressure [Right] O2 Sat by Pulse 92 87 87 Oximetry 11/22/20 11/22/20 11/22/20 05:15 05:30 05:45 Temperature Pulse Rate 59 L 58 L 60 Respiratory 17 16 18 Rate Blood Pressure 108/67 94/65 87/63 Blood Pressure [Right] O2 Sat by Pulse 88 89 90 Oximetry 11/22/20 11/22/20 11/22/20 06:00 06:15 06:30 Temperature Pulse Rate 67 60 60 Respiratory 24 14 16 Rate Blood Pressure 112/74 103/65 98/69 Blood Pressure [Right] O2 Sat by Pulse 87 92 91 Oximetry 11/22/20 11/22/20 11/22/20 06:45 07:00 07:15 Temperature Pulse Rate 59 L 58 L 61 Respiratory 16 16 16 Rate Blood Pressure 94/65 98/68 99/67 Blood Pressure [Right] O2 Sat by Pulse 91 90 90 Oximetry 11/22/20 11/22/20 11/22/20 07:30 07:45 08:00 Temperature 97.5 F L Pulse Rate 60 56 L 58 L Respiratory 21 17 16 Rate Blood Pressure 97/66 101/70 97/67 Blood Pressure [Right] O2 Sat by Pulse 89 87 90 Oximetry 11/22/20 11/22/20 11/22/20 08:09 08:15 08:30 Temperature Pulse Rate 61 60 59 L Respiratory 19 17 Rate Blood Pressure 97/67 91/62 99/68 Blood Pressure [Right] O2 Sat by Pulse 91 91 91 Oximetry 11/22/20 11/22/20 11/22/20 08:45 09:00 09:15 Temperature Pulse Rate 57 L 57 L 55 L Respiratory 17 16 16 Rate Blood Pressure 99/66 97/67 95/60 Blood Pressure [Right] O2 Sat by Pulse 91 92 92 Oximetry 11/22/20 11/22/20 11/22/20 09:30 09:45 10:00 Temperature Pulse Rate 58 L 60 58 L Respiratory 17 18 22 Rate Blood Pressure 100/69 100/67 96/65 Blood Pressure [Right] O2 Sat by Pulse 90 90 90 Oximetry 11/22/20 11/22/20 11/22/20 10:15 10:30 10:45 Temperature Pulse Rate 59 L 59 L 60 Respiratory 18 17 18 Rate Blood Pressure 94/67 103/66 95/69 Blood Pressure [Right] O2 Sat by Pulse 90 92 90 Oximetry 11/22/20 11/22/20 11/22/20 11:00 11:51 12:00 Temperature 97.7 F Pulse Rate 58 L 56 L Respiratory 17 Rate Blood Pressure 97/70 96/63 Blood Pressure [Right] O2 Sat by Pulse 91 88 Oximetry Constitutional: alert ENT: other (Now intubated) Ascultation: Bilateral: rales, rhonchi Percussion: Bilateral: not dull Cardiovascular: regular rate and rhythm Gastrointestinal: soft, non-tender CBC and BMP: 11/16/20 05:29 11/20/20 08:50 ABG, PT/INR, D-dimer: ABG ABG pH 7.36 (7.320-7.450) 11/22/20 05:12 POC ABG pCO2 40.7 mmHg (32.0-48.0) 11/22/20 05:12 POC ABG pO2 51.0 mmHg (83-108) L 11/22/20 05:12 POC ABG HCO3 22.5 11/22/20 05:12 PT/INR, D-dimer D-Dimer 1858.36 ng/mlDDU (0-234) H 11/22/20 04:52 Abnormal lab findings: Abnormal Labs 11/15/20 11/15/20 11/15/20 10:39 10:39 10:39 WBC 14.3 H RBC 5.17 H Lymph % (Auto) 7.8 L [place] % (Auto) 7.6 H Lymph # (Auto) 1.1 L [place] # (Auto) 1.1 H Baso # (Auto) Seg Neutrophils % 83.3 H Seg Neutrophils # 11.9 H D-Dimer ABG pH POC ABG pCO2 POC ABG pO2 ABG Sodium ABG Potassium ABG Glucose Sodium 128 L Chloride 96.0 L Carbon Dioxide BUN Creatinine 0.7 L Glucose 238 H POC Glucose Hemoglobin A1c Lactic Acid 4.10 H* Calcium 7.0 L Ferritin Total Bilirubin 1.40 H AST 49 H ALT 70 H Alkaline Phosphatase Lactate Dehydrogenase 663 H C-Reactive Protein 19.80 H Albumin 2.9 L Arterial Blood Glucose Arterial Blood Ionized Calcium Ur Specific [place] Coronavirus (PCR) 11/15/20 11/15/20 11/15/20 10:39 10:39 11:20 WBC RBC Lymph % (Auto) [place] % (Auto) Lymph # (Auto) [place] # (Auto) Baso # (Auto) Seg Neutrophils % Seg Neutrophils # D-Dimer > 66464 H ABG pH POC ABG pCO2 29.9 L POC ABG pO2 137.3 H ABG Sodium 126.5 L ABG Potassium ABG Glucose 248 H Sodium Chloride Carbon Dioxide BUN Creatinine Glucose POC Glucose Hemoglobin A1c Lactic Acid Calcium Ferritin 672.8 H Total Bilirubin AST ALT Alkaline Phosphatase Lactate Dehydrogenase C-Reactive Protein Albumin Arterial Blood Glucose 248 H Arterial Blood Ionized Calcium 4.1 L Ur Specific [place] Coronavirus (PCR) 11/15/20 11/15/20 11/16/20 13:41 23:41 01:45 WBC RBC Lymph % (Auto) [place] % (Auto) Lymph # (Auto) [place] # (Auto) Baso # (Auto) Seg Neutrophils % Seg Neutrophils # D-Dimer ABG pH POC ABG pCO2 POC ABG pO2 ABG Sodium ABG Potassium ABG Glucose Sodium Chloride Carbon Dioxide BUN Creatinine Glucose POC Glucose 284 H Hemoglobin A1c Lactic Acid 2.30 H* Calcium Ferritin Total Bilirubin AST ALT Alkaline Phosphatase Lactate Dehydrogenase C-Reactive Protein Albumin Arterial Blood Glucose Arterial Blood Ionized Calcium Ur Specific [place] 1.037 H Coronavirus (PCR) 11/16/20 11/16/20 11/16/20 05:29 05:29 05:29 WBC 12.9 H RBC Lymph % (Auto) 4.5 L [place] % (Auto) Lymph # (Auto) 0.6 L [place] # (Auto) Baso # (Auto) 0.2 H Seg Neutrophils % 89.8 H Seg Neutrophils # 11.5 H D-Dimer ABG pH POC ABG pCO2 POC ABG pO2 ABG Sodium ABG Potassium ABG Glucose Sodium 131 L Chloride Carbon Dioxide 21 L BUN 23 H Creatinine 0.6 L Glucose 342 H POC Glucose Hemoglobin A1c Lactic Acid 2.60 H* Calcium 7.0 L Ferritin Total Bilirubin AST ALT Alkaline Phosphatase Lactate Dehydrogenase C-Reactive Protein Albumin 2.4 L Arterial Blood Glucose Arterial Blood Ionized Calcium Ur Specific [place] Coronavirus (PCR) 11/16/20 11/16/20 11/16/20 05:29 08:11 12:11 WBC RBC Lymph % (Auto) [place] % (Auto) Lymph # (Auto) [place] # (Auto) Baso # (Auto) Seg Neutrophils % Seg Neutrophils # D-Dimer ABG pH POC ABG pCO2 POC ABG pO2 ABG Sodium ABG Potassium ABG Glucose Sodium Chloride Carbon Dioxide BUN Creatinine Glucose POC Glucose 329 H 320 H Hemoglobin A1c 11.7 H Lactic Acid Calcium Ferritin Total Bilirubin AST ALT Alkaline Phosphatase Lactate Dehydrogenase C-Reactive Protein Albumin Arterial Blood Glucose Arterial Blood Ionized Calcium Ur Specific [place] Coronavirus (PCR) 11/16/20 11/16/20 11/16/20 16:13 21:29 Unknown WBC RBC Lymph % (Auto) [place] % (Auto) Lymph # (Auto) [place] # (Auto) Baso # (Auto) Seg Neutrophils % Seg Neutrophils # D-Dimer ABG pH POC ABG pCO2 POC ABG pO2 ABG Sodium ABG Potassium ABG Glucose Sodium Chloride Carbon Dioxide BUN Creatinine Glucose POC Glucose 257 H 376 H Hemoglobin A1c Lactic Acid Calcium Ferritin Total Bilirubin AST ALT Alkaline Phosphatase Lactate Dehydrogenase C-Reactive Protein Albumin Arterial Blood Glucose Arterial Blood Ionized Calcium Ur Specific [place] Coronavirus (PCR) Positive A 11/17/20 11/17/20 11/17/20 07:42 12:07 17:25 WBC RBC Lymph % (Auto) [place] % (Auto) Lymph # (Auto) [place] # (Auto) Baso # (Auto) Seg Neutrophils % Seg Neutrophils # D-Dimer ABG pH POC ABG pCO2 POC ABG pO2 ABG Sodium ABG Potassium ABG Glucose Sodium Chloride Carbon Dioxide BUN Creatinine Glucose POC Glucose 231 H 380 H 302 H Hemoglobin A1c Lactic Acid Calcium Ferritin Total Bilirubin AST ALT Alkaline Phosphatase Lactate Dehydrogenase C-Reactive Protein Albumin Arterial Blood Glucose Arterial Blood Ionized Calcium Ur Specific [place] Coronavirus (PCR) 11/17/20 11/18/20 11/18/20 21:53 04:25 07:45 WBC RBC Lymph % (Auto) [place] % (Auto) Lymph # (Auto) [place] # (Auto) Baso # (Auto) Seg Neutrophils % Seg Neutrophils # D-Dimer ABG pH POC ABG pCO2 POC ABG pO2 ABG Sodium ABG Potassium ABG Glucose Sodium 136 L Chloride Carbon Dioxide BUN 24 H Creatinine 0.6 L Glucose 212 H POC Glucose 293 H 216 H Hemoglobin A1c Lactic Acid Calcium 7.4 L Ferritin Total Bilirubin AST 41 H ALT Alkaline Phosphatase 142 H Lactate Dehydrogenase C-Reactive Protein Albumin 2.3 L Arterial Blood Glucose Arterial Blood Ionized Calcium Ur Specific [place] Coronavirus (PCR) 11/18/20 11/18/20 11/18/20 12:28 15:58 21:37 WBC RBC Lymph % (Auto) [place] % (Auto) Lymph # (Auto) [place] # (Auto) Baso # (Auto) Seg Neutrophils % Seg Neutrophils # D-Dimer ABG pH POC ABG pCO2 POC ABG pO2 ABG Sodium ABG Potassium ABG Glucose Sodium Chloride Carbon Dioxide BUN Creatinine Glucose POC Glucose 165 H 220 H 311 H Hemoglobin A1c Lactic Acid Calcium Ferritin Total Bilirubin AST ALT Alkaline Phosphatase Lactate Dehydrogenase C-Reactive Protein Albumin Arterial Blood Glucose Arterial Blood Ionized Calcium Ur Specific [place] Coronavirus (PCR) 11/19/20 11/19/20 11/19/20 05:35 07:40 12:39 WBC RBC Lymph % (Auto) [place] % (Auto) Lymph # (Auto) [place] # (Auto) Baso # (Auto) Seg Neutrophils % Seg Neutrophils # D-Dimer ABG pH POC ABG pCO2 POC ABG pO2 ABG Sodium ABG Potassium ABG Glucose Sodium 132 L Chloride Carbon Dioxide BUN 25 H Creatinine 0.5 L Glucose 179 H POC Glucose 149 H 306 H Hemoglobin A1c Lactic Acid Calcium 7.5 L Ferritin Total Bilirubin AST ALT Alkaline Phosphatase 139 H Lactate Dehydrogenase C-Reactive Protein Albumin 2.4 L Arterial Blood Glucose Arterial Blood Ionized Calcium Ur Specific [place] Coronavirus (PCR) 11/19/20 11/19/20 11/20/20 16:17 21:25 08:30 WBC RBC Lymph % (Auto) [place] % (Auto) Lymph # (Auto) [place] # (Auto) Baso # (Auto) Seg Neutrophils % Seg Neutrophils # D-Dimer ABG pH POC ABG pCO2 POC ABG pO2 ABG Sodium ABG Potassium ABG Glucose Sodium Chloride Carbon Dioxide BUN Creatinine Glucose POC Glucose 364 H 347 H 141 H Hemoglobin A1c Lactic Acid Calcium Ferritin Total Bilirubin AST ALT Alkaline Phosphatase Lactate Dehydrogenase C-Reactive Protein Albumin Arterial Blood Glucose Arterial Blood Ionized Calcium Ur Specific [place] Coronavirus (PCR) 11/20/20 11/20/20 11/20/20 08:50 11:32 16:19 WBC RBC Lymph % (Auto) [place] % (Auto) Lymph # (Auto) [place] # (Auto) Baso # (Auto) Seg Neutrophils % Seg Neutrophils # D-Dimer ABG pH POC ABG pCO2 POC ABG pO2 ABG Sodium ABG Potassium ABG Glucose Sodium 132 L Chloride 97.6 L Carbon Dioxide BUN 26 H Creatinine 0.5 L Glucose 201 H POC Glucose 296 H 327 H Hemoglobin A1c Lactic Acid Calcium 7.9 L Ferritin Total Bilirubin AST ALT Alkaline Phosphatase 137 H Lactate Dehydrogenase C-Reactive Protein Albumin 2.6 L Arterial Blood Glucose Arterial Blood Ionized Calcium Ur Specific [place] Coronavirus (PCR) 11/20/20 11/21/20 11/21/20 22:09 07:59 13:51 WBC RBC Lymph % (Auto) [place] % (Auto) Lymph # (Auto) [place] # (Auto) Baso # (Auto) Seg Neutrophils % Seg Neutrophils # D-Dimer ABG pH POC ABG pCO2 POC ABG pO2 ABG Sodium ABG Potassium ABG Glucose Sodium Chloride Carbon Dioxide BUN Creatinine Glucose POC Glucose 311 H 218 H 304 H Hemoglobin A1c Lactic Acid Calcium Ferritin Total Bilirubin AST ALT Alkaline Phosphatase Lactate Dehydrogenase C-Reactive Protein Albumin Arterial Blood Glucose Arterial Blood Ionized Calcium Ur Specific [place] Coronavirus (PCR) 11/21/20 11/21/20 11/21/20 16:09 21:34 23:00 WBC RBC Lymph % (Auto) [place] % (Auto) Lymph # (Auto) [place] # (Auto) Baso # (Auto) Seg Neutrophils % Seg Neutrophils # D-Dimer ABG pH 7.206 L POC ABG pCO2 59.3 H POC ABG pO2 76.7 L ABG Sodium 133.1 L ABG Potassium ABG Glucose 320 H Sodium Chloride Carbon Dioxide BUN Creatinine Glucose POC Glucose 239 H 279 H Hemoglobin A1c Lactic Acid Calcium Ferritin Total Bilirubin AST ALT Alkaline Phosphatase Lactate Dehydrogenase C-Reactive Protein Albumin Arterial Blood Glucose 320 H Arterial Blood Ionized Calcium Ur Specific [place] Coronavirus (PCR) 11/22/20 11/22/20 11/22/20 04:52 04:52 04:52 WBC RBC Lymph % (Auto) [place] % (Auto) Lymph # (Auto) [place] # (Auto) Baso # (Auto) Seg Neutrophils % Seg Neutrophils # D-Dimer 1858.36 H ABG pH POC ABG pCO2 POC ABG pO2 ABG Sodium ABG Potassium ABG Glucose Sodium Chloride Carbon Dioxide BUN Creatinine Glucose POC Glucose Hemoglobin A1c Lactic Acid Calcium Ferritin 734.2 H Total Bilirubin AST ALT Alkaline Phosphatase Lactate Dehydrogenase 404 H C-Reactive Protein 2.80 H Albumin Arterial Blood Glucose Arterial Blood Ionized Calcium Ur Specific [place] Coronavirus (PCR) 11/22/20 11/22/20 11/22/20 05:12 05:39 11:50 WBC RBC Lymph % (Auto) [place] % (Auto) Lymph # (Auto) [place] # (Auto) Baso # (Auto) Seg Neutrophils % Seg Neutrophils # D-Dimer ABG pH POC ABG pCO2 POC ABG pO2 51.0 L ABG Sodium 131.2 L ABG Potassium 4.6 H ABG Glucose 317 H Sodium Chloride Carbon Dioxide BUN Creatinine Glucose POC Glucose 340 H 417 H Hemoglobin A1c Lactic Acid Calcium Ferritin Total Bilirubin AST ALT Alkaline Phosphatase Lactate Dehydrogenase C-Reactive Protein Albumin Arterial Blood Glucose 317 H Arterial Blood Ionized Calcium 4.4 L Ur Specific [place] Coronavirus (PCR) Chest x-ray: image reviewed (Bilateral patchy infiltrate. ET tube in good position)
[2020-11-22 12:53] LABS: Hematocrit 39.5 % (35.5-45.6); Hemoglobin 13.1 gm/dl (11.8-15.2); Mean Corpuscular HGB Conc 33 % (32-34); Mean Corpuscular Volume 89 fl (84-94); Platelet Count 272 K/mm3 (140-440); Red Blood Count 4.45 M/mm3 (3.65-5.03); Red Cell Distribution Width 13.6 % (13.2-15.2)
[2020-11-22 13:29] LABS: Blood Urea Nitrogen 36 mg/dL (9-20); Calcium 7.2 mg/dL (8.4-10.2); Hemolysis Index 6
[2020-11-22 13:50] LABS: RBC Morphology Normal; Total Cells Counted 100
[2020-11-22 13:51] LABS: Platelet Estimate Consistent w Auto
[2020-11-22 13:58] LABS: BUN/Creatinine Ratio 60
[2020-11-22] MEDS: fentaNYL DRIP Premix 2,000 MCG/100 ML BAG IV SCH (15:38)
[2020-11-22] MEDS: FAMOTIDINE 20 MG/2 ML INJ IV SCH (21:53)
[2020-11-22] MEDS: INSULIN GLARGINE 100 UNITS/ML SUB-Q SCH (21:54)
[2020-11-22] MEDS ORDERED: FAMOTIDINE 20 MG TAB PO SCH (22:00)
[2020-11-23] MEDS: SODIUM CHLORIDE 0.9% 1000 ML 1,000 ML IV SCH (00:05)
[2020-11-23] MEDS: fentaNYL DRIP Premix 2,000 MCG/100 ML BAG IV SCH ×3 (00:06→20:18)
[2020-11-23] MEDS: methylPREDNISolone Sod Succinate 125 MG/2 ML INJ IV SCH ×4 (00:10→18:21)
[2020-11-23] MEDS: INSULIN LISPRO 100 UNIT/ML SUB-Q SCH ×5 (00:11→23:56)
[2020-11-23 04:21] LABS: Hematocrit 39.2 % (35.5-45.6); Hemoglobin 13.1 gm/dl (11.8-15.2); Mean Corpuscular HGB Conc 33 % (32-34); Mean Corpuscular Volume 89 fl (84-94); Platelet Count 263 K/mm3 (140-440); Red Cell Distribution Width 13.7 % (13.2-15.2)
[2020-11-23 04:43] LABS: Alanine Aminotransferase 75 units/L (7-56); Albumin 2.4 g/dL (3.9-5); Blood Urea Nitrogen 33 mg/dL (9-20); Calcium 7.1 mg/dL (8.4-10.2); Hemolysis Index 1
[2020-11-23 04:52] LABS: BUN/Creatinine Ratio 55
[2020-11-23] MEDS: MIDAZOLAM 100 MG in SODIUM CHLORIDE 0.9% 80 ML IV SCH (08:32)
--- NOTE | 2020-11-23 10:11 | XRay Report ---
CHEST - 1 VIEW 0823 hours INDICATION: follow up respiratory failure COMPARISON: Yesterday FINDINGS: Support devices: Stable support device positioning. Heart: Stable cardiomediastinal silhouette. Lungs/pleura: Stable bilateral lung opacities. No pleural effusion or pneumothorax. Additional findings: None. IMPRESSION: Unchanged exam. Signer Name: Jaylen Delgado Jr, MD Signed: 11/23/2020 10:06 AM Workstation Name: [id number]
[2020-11-23] MEDS: ENOXAPARIN 80 MG/0.8 ML INJ SUB-Q SCH ×2 (11:46→22:36)
[2020-11-23] MEDS: FAMOTIDINE 20 MG/2 ML INJ IV SCH ×2 (11:47→22:36)
--- NOTE | 2020-11-23 11:48 | Progress Note ---
Assessment and Plan 59 y/o male with acute respiratory failure, abnormal CXR and abnormal lab studies. 11/23/20: Prone again today for 12 hours. Continue High Dose steroids. Hold on lasix given marginal BP's. Prognosis is very very guarded to poor. Will continue all supportive measures. If not able to wean from 100%, will attempt transfer for ECMO. 11/20/20: WIll change to solumedrol 60q6 today. Hold on lasix today. Given his increasing oxygen requirement, will likely end up intubated. OVerall prognosis is very poor. 11/19/20: lasix 40mg IV x1 today. Will speak with ID but may consider increasing steroids to see if this will help with oxygenation. Continue Remdesivir. Prognosis remains guarded. 11/18/20: Continue bipap, goal is to attempt to prevent prolong intubation for as long as possible. Lasix again today. Steroids and Remdesivir. Guarded Prognosis. 11/17/20: Continue bipap therapy. Monitor mental state. High risk for Intubation. Continue BID anticoagulation. Prone if able. BNP was elevated but not grossly elevated. Will still give lasix with hopes of achieving net negative state. STeroids and remdesivir. Overall prognosis is guarded, extremely guarded. 1. Pulm- Agree with concern for covid. Agree with empiric abx but procal is only mildly elevated. Await cultures. Continue bipap therapy for now but will need to monitor closely. [facility] has ordered CTA, but I spoke with pharmacy and we will empirically treat with BID lovenox therapy. COntinue empiric steroid therapy for COVID until studies back. Not sure that he will be able to prone on bipap therapy. Monitor volume status and run as dry as possible. 2. Renal-normal function but all electrolytes abnormal. HYponatremia and Hypochloremia volume up vs volume down. Sent BNP. Would suggest obtaning echo as well. Not sure what to make of elevated lactate unless that is from increased work of breathing or damage to other tissue unknown. May need to check LFT's and Coags as well. 3. Guarded Prognosis. CCT 31 minutes. Subjective Date of service: 11/23/20 Principal diagnosis: COVID-19 Interval history: Intubated over the weekend. Proned yesterday but still requiring 100% FiO2. Sedated on Versed and Fent. Objective Vital Signs - 12hr 11/22/20 11/23/20 11/23/20 23:49 00:00 00:15 Temperature 97.8 F Pulse Rate 56 L 55 L 56 L Respiratory 30 H 30 H Rate Blood Pressure 94/60 98/60 101/67 O2 Sat by Pulse 96 94 96 Oximetry 11/23/20 11/23/20 11/23/20 00:30 00:45 01:00 Temperature Pulse Rate 58 L 56 L 55 L Respiratory 30 H 30 H 30 H Rate Blood Pressure 90/57 93/60 94/59 O2 Sat by Pulse 95 94 97 Oximetry 11/23/20 11/23/20 11/23/20 01:15 01:30 01:45 Temperature Pulse Rate 55 L 53 L 53 L Respiratory 30 H 30 H 30 H Rate Blood Pressure 93/59 93/57 92/58 O2 Sat by Pulse 96 94 95 Oximetry 11/23/20 11/23/20 11/23/20 02:00 02:15 02:30 Temperature Pulse Rate 56 L 53 L 55 L Respiratory 30 H 30 H 30 H Rate Blood Pressure 91/59 93/57 93/63 O2 Sat by Pulse 93 96 94 Oximetry 11/23/20 11/23/20 11/23/20 02:45 03:00 03:15 Temperature Pulse Rate 55 L 55 L 55 L Respiratory 30 H 30 H 30 H Rate Blood Pressure 93/60 95/62 93/61 O2 Sat by Pulse 93 95 94 Oximetry 11/23/20 11/23/20 11/23/20 03:30 03:45 03:46 Temperature Pulse Rate 54 L 52 L 51 L Respiratory 30 H 30 H Rate Blood Pressure 93/58 92/56 92/56 O2 Sat by Pulse 94 93 94 Oximetry 11/23/20 11/23/20 11/23/20 04:00 04:15 04:30 Temperature 97.4 F L Pulse Rate 52 L 108 H 54 L Respiratory 30 H 17 11 L Rate Blood Pressure 91/57 91/52 O2 Sat by Pulse 95 92 Oximetry 11/23/20 11/23/20 11/23/20 04:45 05:00 05:15 Temperature Pulse Rate 50 L 51 L 51 L Respiratory 20 17 19 Rate Blood Pressure 89/56 90/55 80/55 O2 Sat by Pulse 89 90 87 Oximetry 11/23/20 11/23/20 11/23/20 05:30 05:45 06:00 Temperature Pulse Rate 54 L 48 L 49 L Respiratory 13 11 L 12 Rate Blood Pressure 89/56 96/56 93/54 O2 Sat by Pulse 91 91 90 Oximetry 11/23/20 11/23/20 11/23/20 06:15 06:30 06:45 Temperature Pulse Rate 52 L 52 L 55 L Respiratory 14 13 15 Rate Blood Pressure 86/53 83/54 104/63 O2 Sat by Pulse 91 90 92 Oximetry 11/23/20 11/23/20 11/23/20 07:00 07:15 07:30 Temperature Pulse Rate 55 L 55 L 55 L Respiratory 17 13 10 L Rate Blood Pressure 95/62 91/60 89/56 O2 Sat by Pulse 90 89 88 Oximetry 11/23/20 11/23/20 11/23/20 07:45 08:00 08:15 Temperature Pulse Rate 51 L 52 L 59 L Respiratory 14 25 H 18 Rate Blood Pressure 89/60 91/60 88/55 O2 Sat by Pulse 89 90 87 Oximetry Constitutional: alert ENT: other (Now intubated) Ascultation: Bilateral: rales, rhonchi Percussion: Bilateral: not dull Cardiovascular: regular rate and rhythm Gastrointestinal: soft, non-tender CBC and BMP: 11/23/20 04:00 11/23/20 04:00 ABG, PT/INR, D-dimer: ABG ABG pH 7.331 (7.320-7.450) 11/22/20 18:33 POC ABG pCO2 44.4 mmHg (32.0-48.0) 11/22/20 18:33 POC ABG pO2 60.8 mmHg (83-108) L 11/22/20 18:33 POC ABG HCO3 22.9 11/22/20 18:33 PT/INR, D-dimer D-Dimer 1858.36 ng/mlDDU (0-234) H 11/22/20 04:52 Abnormal lab findings: Abnormal Labs 11/15/20 11/15/20 11/15/20 10:39 10:39 10:39 WBC 14.3 H RBC 5.17 H Lymph % (Auto) 7.8 L Rains % (Auto) 7.6 H Lymph # (Auto) 1.1 L Rains # (Auto) 1.1 H Baso # (Auto) Seg Neutrophils % 83.3 H Seg Neuts % (Manual) Seg Neutrophils # 11.9 H Seg Neutrophils # Man Lymphocytes # (Manual) D-Dimer ABG pH POC ABG pCO2 POC ABG pO2 ABG Oxyhemoglobin ABG Sodium ABG Potassium ABG Glucose Sodium 128 L Chloride 96.0 L Carbon Dioxide BUN Creatinine 0.7 L Glucose 238 H POC Glucose Hemoglobin A1c Lactic Acid 4.10 H* Calcium 7.0 L Ferritin Total Bilirubin 1.40 H AST 49 H ALT 70 H Alkaline Phosphatase Lactate Dehydrogenase 663 H C-Reactive Protein 19.80 H Total Protein Albumin 2.9 L Arterial Blood Glucose Arterial Blood Ionized Calcium Ur Specific [place] Coronavirus (PCR) 11/15/20 11/15/20 11/15/20 10:39 10:39 11:20 WBC RBC Lymph % (Auto) Rains % (Auto) Lymph # (Auto) Rains # (Auto) Baso # (Auto) Seg Neutrophils % Seg Neuts % (Manual) Seg Neutrophils # Seg Neutrophils # Man Lymphocytes # (Manual) D-Dimer > 99638 H ABG pH POC ABG pCO2 29.9 L POC ABG pO2 137.3 H ABG Oxyhemoglobin ABG Sodium 126.5 L ABG Potassium ABG Glucose 248 H Sodium Chloride Carbon Dioxide BUN Creatinine Glucose POC Glucose Hemoglobin A1c Lactic Acid Calcium Ferritin 672.8 H Total Bilirubin AST ALT Alkaline Phosphatase Lactate Dehydrogenase C-Reactive Protein Total Protein Albumin Arterial Blood Glucose 248 H Arterial Blood Ionized Calcium 4.1 L Ur Specific [place] Coronavirus (PCR) 11/15/20 11/15/20 11/16/20 13:41 23:41 01:45 WBC RBC Lymph % (Auto) Rains % (Auto) Lymph # (Auto) Rains # (Auto) Baso # (Auto) Seg Neutrophils % Seg Neuts % (Manual) Seg Neutrophils # Seg Neutrophils # Man Lymphocytes # (Manual) D-Dimer ABG pH POC ABG pCO2 POC ABG pO2 ABG Oxyhemoglobin ABG Sodium ABG Potassium ABG Glucose Sodium Chloride Carbon Dioxide BUN Creatinine Glucose POC Glucose 284 H Hemoglobin A1c Lactic Acid 2.30 H* Calcium Ferritin Total Bilirubin AST ALT Alkaline Phosphatase Lactate Dehydrogenase C-Reactive Protein Total Protein Albumin Arterial Blood Glucose Arterial Blood Ionized Calcium Ur Specific [place] 1.037 H Coronavirus (PCR) 11/16/20 11/16/20 11/16/20 05:29 05:29 05:29 WBC 12.9 H RBC Lymph % (Auto) 4.5 L Rains % (Auto) Lymph # (Auto) 0.6 L Rains # (Auto) Baso # (Auto) 0.2 H Seg Neutrophils % 89.8 H Seg Neuts % (Manual) Seg Neutrophils # 11.5 H Seg Neutrophils # Man Lymphocytes # (Manual) D-Dimer ABG pH POC ABG pCO2 POC ABG pO2 ABG Oxyhemoglobin ABG Sodium ABG Potassium ABG Glucose Sodium 131 L Chloride Carbon Dioxide 21 L BUN 23 H Creatinine 0.6 L Glucose 342 H POC Glucose Hemoglobin A1c Lactic Acid 2.60 H* Calcium 7.0 L Ferritin Total Bilirubin AST ALT Alkaline Phosphatase Lactate Dehydrogenase C-Reactive Protein Total Protein Albumin 2.4 L Arterial Blood Glucose Arterial Blood Ionized Calcium Ur Specific [place] Coronavirus (PCR) 11/16/20 11/16/20 11/16/20 05:29 08:11 12:11 WBC RBC Lymph % (Auto) Rains % (Auto) Lymph # (Auto) Rains # (Auto) Baso # (Auto) Seg Neutrophils % Seg Neuts % (Manual) Seg Neutrophils # Seg Neutrophils # Man Lymphocytes # (Manual) D-Dimer ABG pH POC ABG pCO2 POC ABG pO2 ABG Oxyhemoglobin ABG Sodium ABG Potassium ABG Glucose Sodium Chloride Carbon Dioxide BUN Creatinine Glucose POC Glucose 329 H 320 H Hemoglobin A1c 11.7 H Lactic Acid Calcium Ferritin Total Bilirubin AST ALT Alkaline Phosphatase Lactate Dehydrogenase C-Reactive Protein Total Protein Albumin Arterial Blood Glucose Arterial Blood Ionized Calcium Ur Specific [place] Coronavirus (PCR) 11/16/20 11/16/20 11/16/20 16:13 21:29 Unknown WBC RBC Lymph % (Auto) Rains % (Auto) Lymph # (Auto) Rains # (Auto) Baso # (Auto) Seg Neutrophils % Seg Neuts % (Manual) Seg Neutrophils # Seg Neutrophils # Man Lymphocytes # (Manual) D-Dimer ABG pH POC ABG pCO2 POC ABG pO2 ABG Oxyhemoglobin ABG Sodium ABG Potassium ABG Glucose Sodium Chloride Carbon Dioxide BUN Creatinine Glucose POC Glucose 257 H 376 H Hemoglobin A1c Lactic Acid Calcium Ferritin Total Bilirubin AST ALT Alkaline Phosphatase Lactate Dehydrogenase C-Reactive Protein Total Protein Albumin Arterial Blood Glucose Arterial Blood Ionized Calcium Ur Specific [place] Coronavirus (PCR) Positive A 11/17/20 11/17/20 11/17/20 07:42 12:07 17:25 WBC RBC Lymph % (Auto) Rains % (Auto) Lymph # (Auto) Rains # (Auto) Baso # (Auto) Seg Neutrophils % Seg Neuts % (Manual) Seg Neutrophils # Seg Neutrophils # Man Lymphocytes # (Manual) D-Dimer ABG pH POC ABG pCO2 POC ABG pO2 ABG Oxyhemoglobin ABG Sodium ABG Potassium ABG Glucose Sodium Chloride Carbon Dioxide BUN Creatinine Glucose POC Glucose 231 H 380 H 302 H Hemoglobin A1c Lactic Acid Calcium Ferritin Total Bilirubin AST ALT Alkaline Phosphatase Lactate Dehydrogenase C-Reactive Protein Total Protein Albumin Arterial Blood Glucose Arterial Blood Ionized Calcium Ur Specific [place] Coronavirus (PCR) 11/17/20 11/18/20 11/18/20 21:53 04:25 07:45 WBC RBC Lymph % (Auto) Rains % (Auto) Lymph # (Auto) Rains # (Auto) Baso # (Auto) Seg Neutrophils % Seg Neuts % (Manual) Seg Neutrophils # Seg Neutrophils # Man Lymphocytes # (Manual) D-Dimer ABG pH POC ABG pCO2 POC ABG pO2 ABG Oxyhemoglobin ABG Sodium ABG Potassium ABG Glucose Sodium 136 L Chloride Carbon Dioxide BUN 24 H Creatinine 0.6 L Glucose 212 H POC Glucose 293 H 216 H Hemoglobin A1c Lactic Acid Calcium 7.4 L Ferritin Total Bilirubin AST 41 H ALT Alkaline Phosphatase 142 H Lactate Dehydrogenase C-Reactive Protein Total Protein Albumin 2.3 L Arterial Blood Glucose Arterial Blood Ionized Calcium Ur Specific [place] Coronavirus (PCR) 11/18/20 11/18/20 11/18/20 12:28 15:58 21:37 WBC RBC Lymph % (Auto) Rains % (Auto) Lymph # (Auto) Rains # (Auto) Baso # (Auto) Seg Neutrophils % Seg Neuts % (Manual) Seg Neutrophils # Seg Neutrophils # Man Lymphocytes # (Manual) D-Dimer ABG pH POC ABG pCO2 POC ABG pO2 ABG Oxyhemoglobin ABG Sodium ABG Potassium ABG Glucose Sodium Chloride Carbon Dioxide BUN Creatinine Glucose POC Glucose 165 H 220 H 311 H Hemoglobin A1c Lactic Acid Calcium Ferritin Total Bilirubin AST ALT Alkaline Phosphatase Lactate Dehydrogenase C-Reactive Protein Total Protein Albumin Arterial Blood Glucose Arterial Blood Ionized Calcium Ur Specific [place] Coronavirus (PCR) 11/19/20 11/19/20 11/19/20 05:35 07:40 12:39 WBC RBC Lymph % (Auto) Rains % (Auto) Lymph # (Auto) Rains # (Auto) Baso # (Auto) Seg Neutrophils % Seg Neuts % (Manual) Seg Neutrophils # Seg Neutrophils # Man Lymphocytes # (Manual) D-Dimer ABG pH POC ABG pCO2 POC ABG pO2 ABG Oxyhemoglobin ABG Sodium ABG Potassium ABG Glucose Sodium 132 L Chloride Carbon Dioxide BUN 25 H Creatinine 0.5 L Glucose 179 H POC Glucose 149 H 306 H Hemoglobin A1c Lactic Acid Calcium 7.5 L Ferritin Total Bilirubin AST ALT Alkaline Phosphatase 139 H Lactate Dehydrogenase C-Reactive Protein Total Protein Albumin 2.4 L Arterial Blood Glucose Arterial Blood Ionized Calcium Ur Specific [place] Coronavirus (PCR) 11/19/20 11/19/20 11/20/20 16:17 21:25 08:30 WBC RBC Lymph % (Auto) Rains % (Auto) Lymph # (Auto) Rains # (Auto) Baso # (Auto) Seg Neutrophils % Seg Neuts % (Manual) Seg Neutrophils # Seg Neutrophils # Man Lymphocytes # (Manual) D-Dimer ABG pH POC ABG pCO2 POC ABG pO2 ABG Oxyhemoglobin ABG Sodium ABG Potassium ABG Glucose Sodium Chloride Carbon Dioxide BUN Creatinine Glucose POC Glucose 364 H 347 H 141 H Hemoglobin A1c Lactic Acid Calcium Ferritin Total Bilirubin AST ALT Alkaline Phosphatase Lactate Dehydrogenase C-Reactive Protein Total Protein Albumin Arterial Blood Glucose Arterial Blood Ionized Calcium Ur Specific [place] Coronavirus (PCR) 11/20/20 11/20/20 11/20/20 08:50 11:32 16:19 WBC RBC Lymph % (Auto) Rains % (Auto) Lymph # (Auto) Rains # (Auto) Baso # (Auto) Seg Neutrophils % Seg Neuts % (Manual) Seg Neutrophils # Seg Neutrophils # Man Lymphocytes # (Manual) D-Dimer ABG pH POC ABG pCO2 POC ABG pO2 ABG Oxyhemoglobin ABG Sodium ABG Potassium ABG Glucose Sodium 132 L Chloride 97.6 L Carbon Dioxide BUN 26 H Creatinine 0.5 L Glucose 201 H POC Glucose 296 H 327 H Hemoglobin A1c Lactic Acid Calcium 7.9 L Ferritin Total Bilirubin AST ALT Alkaline Phosphatase 137 H Lactate Dehydrogenase C-Reactive Protein Total Protein Albumin 2.6 L Arterial Blood Glucose Arterial Blood Ionized Calcium Ur Specific [place] Coronavirus (PCR) 11/20/20 11/21/20 11/21/20 22:09 07:59 13:51 WBC RBC Lymph % (Auto) Rains % (Auto) Lymph # (Auto) Rains # (Auto) Baso # (Auto) Seg Neutrophils % Seg Neuts % (Manual) Seg Neutrophils # Seg Neutrophils # Man Lymphocytes # (Manual) D-Dimer ABG pH POC ABG pCO2 POC ABG pO2 ABG Oxyhemoglobin ABG Sodium ABG Potassium ABG Glucose Sodium Chloride Carbon Dioxide BUN Creatinine Glucose POC Glucose 311 H 218 H 304 H Hemoglobin A1c Lactic Acid Calcium Ferritin Total Bilirubin AST ALT Alkaline Phosphatase Lactate Dehydrogenase C-Reactive Protein Total Protein Albumin Arterial Blood Glucose Arterial Blood Ionized Calcium Ur Specific [place] Coronavirus (PCR) 11/21/20 11/21/20 11/21/20 16:09 21:34 23:00 WBC RBC Lymph % (Auto) Rains % (Auto) Lymph # (Auto) Rains # (Auto) Baso # (Auto) Seg Neutrophils % Seg Neuts % (Manual) Seg Neutrophils # Seg Neutrophils # Man Lymphocytes # (Manual) D-Dimer ABG pH 7.206 L POC ABG pCO2 59.3 H POC ABG pO2 76.7 L ABG Oxyhemoglobin ABG Sodium 133.1 L ABG Potassium ABG Glucose 320 H Sodium Chloride Carbon Dioxide BUN Creatinine Glucose POC Glucose 239 H 279 H Hemoglobin A1c Lactic Acid Calcium Ferritin Total Bilirubin AST ALT Alkaline Phosphatase Lactate Dehydrogenase C-Reactive Protein Total Protein Albumin Arterial Blood Glucose 320 H Arterial Blood Ionized Calcium Ur Specific [place] Coronavirus (PCR) 11/22/20 11/22/20 11/22/20 04:52 04:52 04:52 WBC RBC Lymph % (Auto) Rains % (Auto) Lymph # (Auto) Rains # (Auto) Baso # (Auto) Seg Neutrophils % Seg Neuts % (Manual) Seg Neutrophils # Seg Neutrophils # Man Lymphocytes # (Manual) D-Dimer 1858.36 H ABG pH POC ABG pCO2 POC ABG pO2 ABG Oxyhemoglobin ABG Sodium ABG Potassium ABG Glucose Sodium Chloride Carbon Dioxide BUN Creatinine Glucose POC Glucose Hemoglobin A1c Lactic Acid Calcium Ferritin 734.2 H Total Bilirubin AST ALT Alkaline Phosphatase Lactate Dehydrogenase 404 H C-Reactive Protein 2.80 H Total Protein Albumin Arterial Blood Glucose Arterial Blood Ionized Calcium Ur Specific [place] Coronavirus (PCR) 11/22/20 11/22/20 11/22/20 05:12 05:39 11:50 WBC RBC Lymph % (Auto) Rains % (Auto) Lymph # (Auto) Rains # (Auto) Baso # (Auto) Seg Neutrophils % Seg Neuts % (Manual) Seg Neutrophils # Seg Neutrophils # Man Lymphocytes # (Manual) D-Dimer ABG pH POC ABG pCO2 POC ABG pO2 51.0 L ABG Oxyhemoglobin ABG Sodium 131.2 L ABG Potassium 4.6 H ABG Glucose 317 H Sodium Chloride Carbon Dioxide BUN Creatinine Glucose POC Glucose 340 H 417 H Hemoglobin A1c Lactic Acid Calcium Ferritin Total Bilirubin AST ALT Alkaline Phosphatase Lactate Dehydrogenase C-Reactive Protein Total Protein Albumin Arterial Blood Glucose 317 H Arterial Blood Ionized Calcium 4.4 L Ur Specific [place] Coronavirus (PCR) 11/22/20 11/22/20 11/22/20 12:22 12:22 17:10 WBC 14.4 H RBC Lymph % (Auto) Rains % (Auto) Lymph # (Auto) Rains # (Auto) Baso # (Auto) Seg Neutrophils % Seg Neuts % (Manual) 98.0 H Seg Neutrophils # Seg Neutrophils # Man 14.1 H Lymphocytes # (Manual) 0.0 L D-Dimer ABG pH POC ABG pCO2 POC ABG pO2 ABG Oxyhemoglobin ABG Sodium ABG Potassium ABG Glucose Sodium 132 L Chloride Carbon Dioxide BUN 36 H Creatinine 0.6 L Glucose 219 H POC Glucose 157 H Hemoglobin A1c Lactic Acid Calcium 7.2 L Ferritin Total Bilirubin AST ALT Alkaline Phosphatase Lactate Dehydrogenase C-Reactive Protein Total Protein Albumin Arterial Blood Glucose Arterial Blood Ionized Calcium Ur Specific [place] Coronavirus (PCR) 11/22/20 11/22/20 11/22/20 18:33 21:44 23:47 WBC RBC Lymph % (Auto) Rains % (Auto) Lymph # (Auto) Rains # (Auto) Baso # (Auto) Seg Neutrophils % Seg Neuts % (Manual) Seg Neutrophils # Seg Neutrophils # Man Lymphocytes # (Manual) D-Dimer ABG pH POC ABG pCO2 POC ABG pO2 60.8 L ABG Oxyhemoglobin 88.1 L ABG Sodium 135.1 L ABG Potassium ABG Glucose 141 H Sodium Chloride Carbon Dioxide BUN Creatinine Glucose POC Glucose 117 H 123 H Hemoglobin A1c Lactic Acid Calcium Ferritin Total Bilirubin AST ALT Alkaline Phosphatase Lactate Dehydrogenase C-Reactive Protein Total Protein Albumin Arterial Blood Glucose 141 H Arterial Blood Ionized Calcium Ur Specific [place] Coronavirus (PCR) 11/23/20 11/23/20 11/23/20 04:00 04:00 05:23 WBC 14.4 H RBC Lymph % (Auto) Rains % (Auto) Lymph # (Auto) Rains # (Auto) Baso # (Auto) Seg Neutrophils % Seg Neuts % (Manual) Seg Neutrophils # Seg Neutrophils # Man Lymphocytes # (Manual) D-Dimer ABG pH POC ABG pCO2 POC ABG pO2 ABG Oxyhemoglobin ABG Sodium ABG Potassium ABG Glucose Sodium 136 L Chloride Carbon Dioxide BUN 33 H Creatinine 0.6 L Glucose 115 H POC Glucose 173 H Hemoglobin A1c Lactic Acid Calcium 7.1 L Ferritin Total Bilirubin AST 64 H ALT 75 H Alkaline Phosphatase Lactate Dehydrogenase C-Reactive Protein Total Protein 5.9 L D Albumin 2.4 L Arterial Blood Glucose Arterial Blood Ionized Calcium Ur Specific [place] Coronavirus (PCR)
[2020-11-23] MEDS ORDERED: SIMPLE SYRUP 15 ML FEEDTUBE PRN ×2 (11:53)
[2020-11-23] MEDS ORDERED: SODIUM CHLORIDE 0.9% 1000 ML 1,000 ML ONE (11:57)
--- NOTE | 2020-11-23 12:22 | Progress Note ---
Assessment and Plan Cultures: SARS CoV2 PCR: positive Blood culture: No growth 11/21/2019 tracheal aspirate culture: In process A/P: 59-year-old male: #Bilateral pneumonia: secondary to COVID-19. Labs showed leukocytosis, D-dimer greater than 10,000, ferritin 672, CRP 19.8, LDH 663, creatinine 0.6, procalcitonin 0.51 #Acute hypoxic respiratory failure: Failed BiPAP. Remains on the vent. #Elevated d-dimer: DVT scan negative. Unable to get CTA Chest due to patients unstable clinical status #Transaminitis: secondary to COVID-19. Recs: -continue steroids: IV/PO Dexamethasone 6 mg daily x 10 days -completed 5 days of abx, remdesivir -Continue prophylactic anticoagulation based on d-dimer per hospital protocol -trend ferritin, LDH, d-dimer, CRP every 2-3 days for risk stratification and to assess disease progression -guarded prognosis Dayday Driscoll MD, FACP [facility] O: [phone] F: [phone] Subjective Date of service: 11/23/20 Principal diagnosis: COVID-19 Interval history: No fever. Now on the vent. Objective - Exam Narrative Exam: Physical Exam (reviewed in chart to minimize risk of transmission) Constitutional: deferred Head, Ears, Nose: deferred Eyes: deferred Neck: deferred Oral: deferred Cardiovascular: deferred Respiratory: deferred GI: deferred Musculoskeletal: deferred Skin: deferred Hem/Lymphatic: deferred Psych: deferred Neurological: deferred - Constitutional Vitals: Vital Signs Temp Pulse Resp BP Pulse Ox 97.4 F L 59 L 18 88/55 87 11/23/20 04:00 11/23/20 08:15 11/23/20 08:15 11/23/20 08:15 11/23/20 08:15 Temperature -Last 24 Hours Temperature 97.4 F Temperature 97.8 F Temperature 98.1 F Temperature 97.9 F - Labs CBC & Chem 7: 11/23/20 04:00 11/23/20 04:00 Labs: Abnormal lab results 11/22/20 11/22/20 11/22/20 Range/Units 12:22 12:22 17:10 WBC 14.4 H (4.5-11.0) K/mm3 Seg Neuts % (Manual) 98.0 H (40.0-70.0) % Seg Neutrophils # Man 14.1 H (1.8-7.7) K/mm3 Lymphocytes # (Manual) 0.0 L (1.2-5.4) K/mm3 POC ABG pO2 (83-108) mmHg ABG Oxyhemoglobin (94-98) ABG Sodium (136.0-145.0) mmol/L ABG Glucose (65-95) mg/dL Sodium 132 L (137-145) mmol/L BUN 36 H (9-20) mg/dL Creatinine 0.6 L (0.8-1.3) mg/dL Glucose 219 H (75-100) mg/dL POC Glucose 157 H (70-105) mg/dL Calcium 7.2 L (8.4-10.2) mg/dL AST (5-40) units/L ALT (7-56) units/L Total Protein (6.3-8.2) g/dL Albumin (3.9-5) g/dL Arterial Blood Glucose (65-95) mg/dL 11/22/20 11/22/20 11/22/20 Range/Units 18:33 21:44 23:47 WBC (4.5-11.0) K/mm3 Seg Neuts % (Manual) (40.0-70.0) % Seg Neutrophils # Man (1.8-7.7) K/mm3 Lymphocytes # (Manual) (1.2-5.4) K/mm3 POC ABG pO2 60.8 L (83-108) mmHg ABG Oxyhemoglobin 88.1 L (94-98) ABG Sodium 135.1 L (136.0-145.0) mmol/L ABG Glucose 141 H (65-95) mg/dL Sodium (137-145) mmol/L BUN (9-20) mg/dL Creatinine (0.8-1.3) mg/dL Glucose (75-100) mg/dL POC Glucose 117 H 123 H (70-105) mg/dL Calcium (8.4-10.2) mg/dL AST (5-40) units/L ALT (7-56) units/L Total Protein (6.3-8.2) g/dL Albumin (3.9-5) g/dL Arterial Blood Glucose 141 H (65-95) mg/dL 11/23/20 11/23/20 11/23/20 Range/Units 04:00 04:00 05:23 WBC 14.4 H (4.5-11.0) K/mm3 Seg Neuts % (Manual) (40.0-70.0) % Seg Neutrophils # Man (1.8-7.7) K/mm3 Lymphocytes # (Manual) (1.2-5.4) K/mm3 POC ABG pO2 (83-108) mmHg ABG Oxyhemoglobin (94-98) ABG Sodium (136.0-145.0) mmol/L ABG Glucose (65-95) mg/dL Sodium 136 L (137-145) mmol/L BUN 33 H (9-20) mg/dL Creatinine 0.6 L (0.8-1.3) mg/dL Glucose 115 H (75-100) mg/dL POC Glucose 173 H (70-105) mg/dL Calcium 7.1 L (8.4-10.2) mg/dL AST 64 H (5-40) units/L ALT 75 H (7-56) units/L Total Protein 5.9 L D (6.3-8.2) g/dL Albumin 2.4 L (3.9-5) g/dL Arterial Blood Glucose (65-95) mg/dL
--- NOTE | 2020-11-23 14:06 | Progress Note ---
Assessment and Plan Assessment and plan: 59-year-old female presents with shortness of breath cough fever weakness. "1 to 2 days. Patient has severe hypoxia per EMS. Her saturations are in the low 80s. With all oxygen and nonrebreather came down to low 90s. Patient denies any past medical history. Exposure to coronavirus present. Does not have a primary care physician. 2/1: Patient continues on BiPAP throughout the night. Labs are remarkable for hypoxia with improving renal function but lactic acidosis without fever. CTA has been ordered to rule out pulmonary embolism. I agree with increasing enoxaparin to twice daily full dose for empiric treatment of pulmonary embolism. Will obtain ID consultation on further evaluation for possible underlying pneumonia versus COVID-19. We will also obtain echocardiogram for evaluation. Will discontinue fluids at this time. 2/2; Continue supportive care, Patient remains with very guarded prognosis, remains on BiPAP, continues on Remdesivir, and steroids. Will continue antico agulation, unable to get CTA Chest due to patients unstable clinical status. Will adjust insulin for better blood glucose 2/3: Continues on BIPAP, no clear improvement at this time. Will continue richelle roids therapy Remdesivir and also Full anticoagulation at this time. Will update family. Discussed with Almond Roaster. 2/4: Taking a break from the BiPAP on high flow and nonrebreather 100% with saturation of 90% becomes hypoxic with any movement. Almond Roaster input noted will get a dose of Lasix today. Will await a discussion with ID for possibly increasing steroid. I updated Patient's Cousin, Tayla Esquivel who is the emergency track service person. Blood sugar remains fluctuating secondary to steriods, Encouraged Prone positioning. Noted with mild hyponatremia we will continue to monitor and manage 2/5: Continue supportive care wean oxygen as tolerated prognosis remains guarded. Encouraged to progress as tolerated. Awaiting labs today. Discussed with nursing staff and patient at bedside. 2/6: Discontinued Dexamethasone as Solumedrol started secondary to increased oxygen demand. Will give additional insulin for better control. Continue oxygen support patient still on high flow. Prognosis still guarded 2/7: Patient was intubated and placed on mechanical ventilation. Continue current medication. Will check a.m. labs today. Noted still with hypotension. Doubt septic shock at this time as patient has no new fever. Will adjust insulin for better blood sugar control. 11/23: Patient admitted with COVID-19 despite all efforts patient remains severely hypoxic and now is intubated. Almond Roaster input noted. Blood pressure marginal at this time. Very poor prognosis. Continue Solu-Medrol. (1) Acute respiratory failure with hypoxia Current Visit: Yes Status: Acute Plan to address problem: Patient on 40% Ventimask Oxygen supplementation as necessary Pulmonary consult requested (2) Sepsis Current Visit: Yes Status: Acute Plan to address problem: Patient has high lactic acid and high white count consistent with sepsis IV antibiotics for now (3) Bilateral pneumonia Current Visit: Yes Status: Acute Qualifiers: Pneumonia type: due to unspecified organism Lung location: unspecified part of lung Qualified Code(s): J18.9 - Pneumonia, unspecified organism Plan to address problem: Patient initiated on IV ceftriaxone and azithromycin Treat as community-acquired pneumonia for now ID consult requested (4) 2019 novel coronavirus infection Current Visit: Yes Status: Acute Plan to address problem: Coronavirus PCR requested Patient initiated on IV Decadron 8 mg every 24 (5) Hyponatremia Current Visit: Yes Status: Acute Plan to address problem: Normal saline for 75 cc/h for 12 hours (6) Transaminitis Current Visit: Yes Status: Acute Plan to address problem: Secondary to Covid infection (7) DVT prophylaxis Current Visit: Yes Status: Acute Plan to address problem: On Lovenox and GI prophylaxis (8) Hyperglycemia Current Visit: Yes Status: Acute Plan to address problem: Patient may be having type 2 diabetes which is undiagnosed Check hemoglobin A1c Accu-Cheks for now and coverage for now May need insulin at the time of discharge The high probability of a clinically significant, sudden or life threatening deterioration of the [pulmonary] system(s) required my full and direct attention, intervention and personal management. The aggregate critical care time was [35] minutes. This time is in addition to time spent performing reported procedures but includes the following: [X] Data Review and interpretation [X] Patient assessment and monitoring of vital signs [X] Documentation [X] Medication orders and management History Interval history: Patient seen and examined remains on full ventilatory support still with hypoxia despite 100% FiO2 Hospitalist Physical - Physical exam Narrative exam: VITAL SIGNS: Reviewed. GENERAL: The patient appears normally developed, sedated HEAD: No signs of head trauma. EYES: Pupils are equal. EARS: Unable to examine MOUTH: Oropharynx with ET tube in place NECK: No adenopathy, no JVD. CHEST: Chest with diminished breath sounds bilaterally. No wheezes, rales, or rhonchi. CARDIAC: Regular rate and rhythm. S1 and S2, without murmurs, gallops, or rubs. VASCULAR: No Edema. Peripheral pulses normal and equal in all extremities. ABDOMEN: Soft, non tender and non distended. No rebound or guarding, and no masses palpated. Bowel Sounds normal. MUSCULOSKELETAL: Good range of motion of all major joints. Extremities without clubbing, cyanosis or edema. NEUROLOGIC EXAM: Sedated no focal sensory or strength deficits. PSYCHIATRIC: Sedated SKIN: detail exam as documented in skin assessment - Constitutional Vitals: Temp Pulse Resp BP Pulse Ox 98.1 F 58 L 18 101/59 92 11/23/20 12:00 11/23/20 13:00 11/23/20 13:00 11/23/20 13:00 11/23/20 13:00 General appearance: Present: mild distress, well-nourished HEART Score - HEART Score Troponin: Troponin T < 0.010 ng/mL (0.00-0.029) 11/22/20 Unknown Results - Labs CBC & Chem 7: 11/23/20 04:00 11/23/20 04:00 Labs: Laboratory Last Values WBC 14.4 K/mm3 (4.5-11.0) H 11/23/20 04:00 RBC 4.40 M/mm3 (3.65-5.03) 11/23/20 04:00 Hgb 13.1 gm/dl (11.8-15.2) 11/23/20 04:00 Hct 39.2 % (35.5-45.6) 11/23/20 04:00 MCV 89 fl (84-94) 11/23/20 04:00 MCH 30 pg (28-32) 11/23/20 04:00 MCHC 33 % (32-34) 11/23/20 04:00 RDW 13.7 % (13.2-15.2) 11/23/20 04:00 Plt Count 263 K/mm3 (140-440) 11/23/20 04:00 Lymph % (Auto) 4.5 % (13.4-35.0) L 11/16/20 05:29 [place] % (Auto) 4.3 % (0.0-7.3) 11/16/20 05:29 Eos % (Auto) 0.0 % (0.0-4.3) 11/16/20 05:29 Baso % (Auto) 1.4 % (0.0-1.8) 11/16/20 05:29 Lymph # (Auto) 0.6 K/mm3 (1.2-5.4) L 11/16/20 05:29 [place] # (Auto) 0.6 K/mm3 (0.0-0.8) 11/16/20 05:29 Eos # (Auto) 0.0 K/mm3 (0.0-0.4) 11/16/20 05:29 Baso # (Auto) 0.2 K/mm3 (0.0-0.1) H 11/16/20 05:29 Add Manual Diff Complete 11/22/20 12:22 Total Counted 100 11/22/20 12:22 Seg Neutrophils % Supervisor Force Adjustment 11/22/20 12:22 Seg Neuts % (Manual) 98.0 % (40.0-70.0) H 11/22/20 12:22 Monocytes % (Manual) 2.0 % (0.0-7.3) 11/22/20 12:22 Nucleated RBC % Not Reportable 11/22/20 12:22 Seg Neutrophils # 11.5 K/mm3 (1.8-7.7) H 11/16/20 05:29 Seg Neutrophils # Man 14.1 K/mm3 (1.8-7.7) H 11/22/20 12:22 Band Neutrophils # 0.0 K/mm3 11/22/20 12:22 Lymphocytes # (Manual) 0.0 K/mm3 (1.2-5.4) L 11/22/20 12:22 Abs React Lymphs (Man) 0.0 K/mm3 11/22/20 12:22 Monocytes # (Manual) 0.3 K/mm3 (0.0-0.8) 11/22/20 12:22 Eosinophils # (Manual) 0.0 K/mm3 (0.0-0.4) 11/22/20 12:22 Basophils # (Manual) 0.0 K/mm3 (0.0-0.1) 11/22/20 12:22 Metamyelocytes # 0.0 K/mm3 11/22/20 12:22 Myelocytes # 0.0 K/mm3 11/22/20 12:22 Promyelocytes # 0.0 K/mm3 11/22/20 12:22 Blast Cells # 0.0 K/mm3 11/22/20 12:22 WBC Morphology Not Reportable 11/22/20 12:22 WBC Morphology TNR 11/22/20 12:22 Hypersegmented Neuts Not Reportable 11/22/20 12:22 Hyposegmented Neuts Not Reportable 11/22/20 12:22 Hypogranular Neuts Not Reportable 11/22/20 12:22 Smudge Cells Not Reportable 11/22/20 12:22 Toxic Granulation Not Reportable 11/22/20 12:22 Toxic Vacuolation Not Reportable 11/22/20 12:22 Dohle Bodies Not Reportable 11/22/20 12:22 Pelger-Huet Anomaly Not Reportable 11/22/20 12:22 Tony Rods Not Reportable 11/22/20 12:22 Platelet Estimate Consistent w auto 11/22/20 12:22 Clumped Platelets Not Reportable 11/22/20 12:22 Plt Clumps, EDTA Not Reportable 11/22/20 12:22 Large Platelets Not Reportable 11/22/20 12:22 Giant Platelets Not Reportable 11/22/20 12:22 Platelet Satelliting Not Reportable 11/22/20 12:22 Plt Morphology Comment Not Reportable 11/22/20 12:22 RBC Morphology Normal 11/22/20 12:22 Dimorphic RBCs Not Reportable 11/22/20 12:22 Polychromasia Not Reportable 11/22/20 12:22 Hypochromasia Not Reportable 11/22/20 12:22 Poikilocytosis Not Reportable 11/22/20 12:22 Anisocytosis Not Reportable 11/22/20 12:22 Microcytosis Not Reportable 11/22/20 12:22 Macrocytosis Not Reportable 11/22/20 12:22 Spherocytes Not Reportable 11/22/20 12:22 Pappenheimer Bodies Not Reportable 11/22/20 12:22 Sickle Cells Not Reportable 11/22/20 12:22 Target Cells Not Reportable 11/22/20 12:22 Tear Drop Cells Not Reportable 11/22/20 12:22 Ovalocytes Not Reportable 11/22/20 12:22 Helmet Cells Not Reportable 11/22/20 12:22 Cabrera-Aurora Bodies Not Reportable 11/22/20 12:22 Alton Rings Not Reportable 11/22/20 12:22 Henrry Cells Not Reportable 11/22/20 12:22 Bite Cells Not Reportable 11/22/20 12:22 Crenated Cell Not Reportable 11/22/20 12:22 Elliptocytes Not Reportable 11/22/20 12:22 Acanthocytes (Spur) Not Reportable 11/22/20 12:22 Rouleaux Not Reportable 11/22/20 12:22 Hemoglobin C Crystals Not Reportable 11/22/20 12:22 Schistocytes Not Reportable 11/22/20 12:22 Malaria parasites Not Reportable 11/22/20 12:22 Yovani Bodies Not Reportable 11/22/20 12:22 Hem Pathologist Commnt No 11/22/20 12:22 D-Dimer 1858.36 ng/mlDDU (0-234) H 11/22/20 04:52 ABG pH 7.34 (7.320-7.450) 11/23/20 05:40 POC ABG pCO2 43.0 mmHg (32.0-48.0) 11/23/20 05:40 POC ABG pO2 56.5 mmHg (83-108) L 11/23/20 05:40 POC ABG HCO3 23 11/23/20 05:40 POC ABG Base Excess -2.7 11/23/20 05:40 ABG Hemoglobin 13.8 (12.0-17.5) 11/23/20 05:40 ABG Oxyhemoglobin 88.1 (94-98) L 11/22/20 18:33 ABG Methemoglobin 0.3 (0.0-1.5) 11/22/20 18:33 ABG Sodium 137.2 mmol/L (136.0-145.0) 11/23/20 05:40 ABG Potassium 4.3 mmol/L (3.40-4.50) 11/23/20 05:40 ABG Chloride 109.0 mmol/L (98-107) H 11/23/20 05:40 ABG Glucose 114 mg/dL (65-95) H 11/23/20 05:40 Carboxyhemoglobin 1.1 (0.5-1.5) 11/22/20 18:33 FiO2 100.0 11/22/20 18:33 Sodium 136 mmol/L (137-145) L 11/23/20 04:00 Potassium 4.3 mmol/L (3.6-5.0) 11/23/20 04:00 Chloride 105.6 mmol/L (98-107) 11/23/20 04:00 Carbon Dioxide 26 mmol/L (22-30) 11/23/20 04:00 Anion Gap 9 mmol/L 11/23/20 04:00 BUN 33 mg/dL (9-20) H 11/23/20 04:00 Creatinine 0.6 mg/dL (0.8-1.3) L 11/23/20 04:00 Estimated GFR > 60 ml/min 11/23/20 04:00 BUN/Creatinine Ratio 55 % 11/23/20 04:00 Glucose 115 mg/dL (75-100) H 11/23/20 04:00 POC Glucose 173 mg/dL (70-105) H 11/23/20 05:23 Hemoglobin A1c 11.7 % (4-6) H 11/16/20 05:29 Lactic Acid 2.60 mmol/L (0.7-2.0) H* 11/16/20 05:29 Calcium 7.1 mg/dL (8.4-10.2) L 11/23/20 04:00 Ferritin 734.2 ng/mL (30.0-300.0) H 11/22/20 04:52 Total Bilirubin 0.60 mg/dL (0.1-1.2) 11/23/20 04:00 AST 64 units/L (5-40) H 11/23/20 04:00 ALT 75 units/L (7-56) H 11/23/20 04:00 Alkaline Phosphatase 102 units/L (35-129) 11/23/20 04:00 Lactate Dehydrogenase 404 units/L (91-180) H 11/22/20 04:52 Troponin T < 0.010 ng/mL (0.00-0.029) 11/22/20 Unknown C-Reactive Protein 2.80 mg/dL (0.00-1.30) H 11/22/20 04:52 NT-Pro-B Natriuret Pep 107.2 pg/mL (0-900) 11/17/20 10:21 Total Protein 5.9 g/dL (6.3-8.2) L D 11/23/20 04:00 Albumin 2.4 g/dL (3.9-5) L 11/23/20 04:00 Albumin/Globulin Ratio 0.7 % 11/23/20 04:00 Procalcitonin 0.51 ng/mL (<0.15) 11/15/20 10:39 Arterial Blood Glucose 114 mg/dL (65-95) H 11/23/20 05:40 Arterial Blood Ionized Calcium 4.5 mg/dL (4.6-5.3) L 11/23/20 05:40 Urine Color [place] (Yellow) 11/16/20 01:45 Urine Turbidity Slightly-cloudy (Clear) 11/16/20 01:45 Urine pH 6.0 (5.0-7.0) 11/16/20 01:45 Ur Specific [place] 1.037 (1.003-1.030) H 11/16/20 01:45 Urine Protein 30 mg/dl mg/dL (Negative) 11/16/20 01:45 Urine Glucose (UA) >=500 mg/dL (Negative) 11/16/20 01:45 Urine Ketones 20 mg/dL (Negative) 11/16/20 01:45 Urine Blood Neg (Negative) 11/16/20 01:45 Urine Nitrite Neg (Negative) 11/16/20 01:45 Urine Bilirubin Neg (Negative) 11/16/20 01:45 Urine Urobilinogen 2.0 mg/dL (<2.0) 11/16/20 01:45 Ur Leukocyte Esterase Neg (Negative) 11/16/20 01:45 Urine WBC (Auto) 2.0 /HPF (0.0-6.0) 11/16/20 01:45 Urine RBC (Auto) 1.0 /HPF (0.0-6.0) 11/16/20 01:45 Urine Bacteria (Auto) 1+ /HPF (Negative) 11/16/20 01:45 Urine Mucus 3+ /HPF 11/16/20 01:45 Coronavirus (PCR) Positive (Negative) A 11/16/20 Unknown Microbiology: Microbiology 11/21/20 23:49 Tracheal Aspirate Sputum Culture - Preliminary - Diagnostic Impressions Diagnostic Impressions: Echocardiogram 11/16/20 10:34 Transthoracic Echocardiogram Indication: Shortness of breath-COVID BP: 108/77 HR: 92 Conclusions *Global left ventricular systolic function is normal. *The estimated ejection fraction is 60-65%. *Mild to moderate concentric left ventricular hypertrophy is observed. *There is trace of mitral regurgitation. *There is mild to moderate tricuspid regurgitation. *There is evidence of mild pulmonary hypertension. *The right ventricular systolic pressure is calculated at 31 mmHg. Findings Left Ventricle: The left ventricular chamber size is normal. Mild to moderate concentric left ventricular hypertrophy is observed. Global left ventricular systolic function is normal. The estimated ejection fraction is 60-65%. Left Atrium: The left atrial chamber size is normal. Right Ventricle: The right ventricular cavity size is normal. The right ventricular global systolic function is normal. Right Atrium: The right atrial cavity size is normal. Aortic Valve: The aortic valve is trileaflet. There is no evidence of aortic regurgitation. There is no evidence of aortic stenosis. Mitral Valve: The mitral valve leaflets appear normal. There is trace of mitral regurgitation. There is no evidence of mitral stenosis. Tricuspid Valve: The tricuspid valve leaflets are normal. There is mild to moderate tricuspid regurgitation. The right ventricular systolic pressure is calculated at 31 mmHg. There is evidence of mild pulmonary hypertension. Pulmonic Valve: There is trace pulmonic regurgitation. Pericardium: There is no pericardial effusion. Aorta: There is no dilatation of the ascending aorta. There is no dilatation of the aortic root. Venous: The inferior vena cava appears normal in size. Measurements Chambers 2D Name Value Normal Range IVSd (2D) 0.81 cm (0.6 - 1.1) LVPWd (2D) 0.79 cm (0.6 - 1.1) LVIDd (2D) 4.22 cm (3.7 - 5.6) LVIDs (2D) 3.1 cm (2 - 3.8) LV FS (2D) 26.71 % - EF Teichholz (2D) 52.55 % - Ao root diameter (2D) 3.34 cm (2 - 3.7) Volumes/Mass Name Value Normal Range LA ESV SP 4CH (A/L) 10.87 ml - LA ESV SP 2CH (A/L) 18.74 ml - LA ESV BP (A/L) 16.38 ml - LA ESV BP (A/L) index 8.62 ml/m2 - LA ESV SP 4CH (MOD) 10.32 ml - LA ESV SP 2CH (MOD) 17.66 ml - LA ESV BP (MOD) 15.12 ml - LA ESV BP (MOD) index 7.96 ml/m2 - Diastolic/Systolic Function Name Value Normal Range MV E-wave Vmax 0.76 m/sec - MV deceleration time 133.63 msec - MV A-wave Vmax 1.1 m/sec - MV E:A ratio 0.69 ratio - Aortic Valve Name Value Normal Range AV Vmax 1.44 m/sec - AV VTI 22.94 cm - AV peak gradient 8.33 mmHg - AV mean gradient 4.73 mmHg - LVOT diameter 2.2 cm - LVOT Vmax 1.04 m/sec - LVOT VTI 18.88 cm - LVOT peak gradient 4.34 mmHg - LVOT mean gradient 2.31 mmHg - SV LVOT 72.05 ml - EVANGELISTA (continuity Vmax) 2.75 cm2 - EVANGELISTA (continuity VTI) 3.14 cm2 - Tricuspid Valve Name Value Normal Range TR Vmax 2.64 m/sec - TR peak gradient 28 mmHg - RAP 3 mmHg - RVSP 31 mmHg - Gupta/IV: Voiding Method Indwelling Catheter IV Catheter Type [Left Peripheral IV Antecubital] Active Medications - Current Medications Current Medications: Generic Name Dose Route Start Last Admin Trade Name Freq PRN Reason Stop Dose Admin Acetaminophen 650 mg 11/15/20 23:55 11/18/20 22:19 Acetaminophen 325 Mg Tab PO 650 mg Q4H PRN Administration Pain MILD(1-3)/Fever >100.5/BUTTS Lipase/Protease/Amylase 1 each 11/23/20 11:53 Lipase 10,500/Protease 25,000/Amylase 43,750 (Units) Dr Slater FEEDTUBE PRN PRN For Clogged Feeding Tube Enoxaparin Sodium 80 mg 11/16/20 10:00 11/23/20 11:46 Enoxaparin 80 Mg/0.8 Ml Inj SUB-Q 80 mg Q12HR RAEANN Administration Famotidine 20 mg 11/22/20 22:00 11/23/20 11:47 Famotidine 20 Mg/2 Ml Inj IV 20 mg BID RAEANN Administration Fentanyl 50 mcg 11/21/20 21:53 Fentanyl 100 Mcg/2 Ml Inj IV Q10MIN PRN ANALGESIA Hydrophilic Ointment 1 applic 11/21/20 21:53 Lip Therapy Vaseline TP Q2HR PRN Dry Lips Fentanyl Citrate 2,000 mcg in 100 mls @ 3.625 mls/hr 11/21/20 22:00 11/23/20 11:45 Fentanyl Drip Premix IV 3 mcg/kg/hr TITR RAEANN 10.875 mls/hr Administration Protocol 1 MCG/KG/HR Midazolam HCl 100 mg/ Sodium 100 mls @ 2 mls/hr 11/21/20 22:00 11/23/20 08:32 Chloride IV 3 mg/hr TITR RAEANN 3 mls/hr Administration Protocol 2 MG/HR Norepinephrine 4 mg in 250 mls @ 7.5 mls/hr 11/22/20 17:00 Levophed Drip 4 Mg/Ns 250 Ml IV TITR RAEANN Protocol 2 MCG/MIN Insulin Glargine 30 units 11/21/20 22:00 11/22/20 21:54 Insulin Glargine 100 Units/Ml SUB-Q 30 units QHS [facility]1983 Administration Insulin Human Lispro 0 unit 11/22/20 06:00 11/23/20 12:04 Insulin Lispro 100 Unit/Ml SUB-Q 3 unit Q6HR [facility]1983 Administration Protocol Methylprednisolone Sodium Succinate 60 mg 11/20/20 12:00 11/23/20 11:45 Methylprednisolone Sod Succinate 125 Mg/2 Ml Inj IV 60 mg Q6HR RAEANN Administration Metoclopramide HCl 10 mg 11/15/20 23:55 Metoclopramide 10 Mg/2 Ml Inj IV Q6H PRN Nausea And Vomiting Midazolam HCl 2 mg 11/21/20 21:53 Midazolam 2 Mg/2 Ml Inj IV Q10MIN PRN Sedation Multi-Ingred Cream/Lotion/Oil/Oint 1 applic 11/21/20 21:53 Mineral Oil/Petrolatum, White Ophth Oint 3.5 Gm OU Q4HR PRN Dry Eye(s) Ondansetron HCl 4 mg 11/15/20 23:55 Ondansetron 4 Mg/2 Ml Inj IV Q8H PRN Nausea And Vomiting Simple Syrup 15 ml 11/23/20 11:53 Simple Syrup 15 Ml FEEDTUBE PRN PRN Hypoglycemia Simple Syrup 30 ml 11/23/20 11:53 Simple Syrup 15 Ml FEEDTUBE PRN PRN Hypoglycemia Sodium Bicarbonate 325 mg 11/23/20 11:53 Sodium Bicarbonate 325 Mg Tab FEEDTUBE PRN PRN For Clogged Feeding Tube Sodium Chloride 10 ml 11/16/20 10:00 11/23/20 11:46 Sodium Chloride 0.9% 10 Ml Flush Syringe IV 10 ml BID RAEANN Administration Sodium Chloride 10 ml 11/15/20 23:55 Sodium Chloride 0.9% 10 Ml Flush Syringe IV PRN PRN LINE FLUSH Nutrition/Malnutrition Assess - Dietary Evaluation Nutrition/Malnutrition Findings: Nutrition Notes Start: 11/20/20 12:03 Freq: Status: Active Protocol: Document 11/23/20 12:01 CW (Rec: 11/23/20 12:10 CW [id number]) Nutrition Notes Need for Assessment generated from: MD Order Initial or Follow up Reassessment Current Diagnosis Diabetes,Sepsis,Respiratory Failure Other Pertinent Diagnosis Bilat pneu, COVID-19 (+) Current Diet Glucerna 1.2 at 100 ml/hr when not proned, 20 ml when proned Labs/Tests Na 136 POC BG 173 BUN 33 Cr 0.6 K 4.3 Pertinent Medications Lantus Lispro Solumedrol Reglan Norepiepherine NS 1L Height 5 ft 6 in Weight 72.5 kg Usual Body Weight 80.5 kg [place] Body Weight (kg) 64.54 BMI 25.7 Weight change and time frame 17.6 lbs weight loss x 1 week (11%) Weight Status Overweight Subjective/Other Information MD consult for tube feeding regimen following intubation. Glucerna 1.2 calculated to provide adequate kcalories during prone position and suppine position. BUN elevated , however, Cr and K are WNL. Will monitor for need to change to Nepro for renal function. Percent of energy/protein needs met: 0%/0% Burn Absent Trauma Absent GI Symptoms None Food Allergy No Current % PO Negligible Minimum of two criteria Yes Energy Intake (severe) < or equal to 50% Estimated Energy Requirement > or equal to 5 days Interpretation of Weight Loss (severe) >2% in 1 week #3 Nutrition Diagnosis Inadequate oral intake Etiology NPO status As Evidenced by Signs and Symptoms Pt on mech vent #2 Nutrition Diagnosis Malnutrition Etiology acute illness - covid 19 As Evidenced by Signs and Symptoms significant weight loss of 11% in 1 week and PO intake <50% for >5 days. Diagnosis Progress(for reassessment Continues documentation) #1 Nutrition Diagnosis Unintended weight loss Diagnosis Progress(for reassessment Continues documentation) Is patient on ventilator? Yes Is Patient Ambulatory and/or Out of Bed No REE-(Bowman-St. Jeor-confined to bed) 1790.004 Calculation Used for Recommendations Bowman-St Jeor Additional Notes Pro needs 1.2-2g/k-145g/ day Fluid needs per MD Nutrition Intervention Change Diet Order: Resume PO diet when medically feasible Nutrition Support: Recommend Glucerna 1.2 at 100ml/hr with free water flush of 150 ml q4h when in supine position. Glucerna 1.2 at 20 ml/hr with free water flush of 50 ml q4h when in prone position. Kcal 1,800 Protein (gm) 86 Fluid (mL) 1,759 Add Supplement/Snack (indicate name/kcal d/c glucerna BID /protein ) Goal #1 Initiate TF regimen Goal #2 Maintain body weight Goal #3 Advanced diet when medically feasible Anticipated Discharge Needs: Unknown at this time Follow-Up By: 11/24/20 Additional Comments F/U: TF tolerance, renal related labs
[2020-11-23] MEDS: INSULIN GLARGINE 100 UNITS/ML SUB-Q SCH (22:00)
[2020-11-24] MEDS: INSULIN LISPRO 100 UNIT/ML SUB-Q SCH ×3 (05:37→17:52)
[2020-11-24] MEDS: methylPREDNISolone Sod Succinate 125 MG/2 ML INJ IV SCH ×4 (05:37→17:51)
[2020-11-24] MEDS: fentaNYL DRIP Premix 2,000 MCG/100 ML BAG IV SCH ×3 (05:37→18:07)
[2020-11-24 06:17] LABS: C-Reactive Protein 1.1 mg/dL (0.00-1.30)
--- NOTE | 2020-11-24 08:34 | XRay Report ---
XR chest 1V ap INDICATION / CLINICAL INFORMATION: follow up respiratory failure. COMPARISON: 11/23/2020 FINDINGS: SUPPORT DEVICES: Unchanged. HEART /PULMONARY VASCULATURE: Unchanged. LUNGS / PLEURA: Stable bilateral lung opacities. No pneumothorax. IMPRESSION: 1. No significant interval change. Signer Name: Luigi Camacho MD Signed: 11/24/2020 8:30 AM Workstation Name: [id number]
[2020-11-24] MEDS: ENOXAPARIN 80 MG/0.8 ML INJ SUB-Q SCH ×2 (09:23→22:09)
[2020-11-24] MEDS: FAMOTIDINE 20 MG/2 ML INJ IV SCH ×2 (09:23→22:09)
--- NOTE | 2020-11-24 10:18 | Progress Note ---
Assessment and Plan 59 y/o male with acute respiratory failure, abnormal CXR and abnormal lab studies. 11/24/20: Prone again today. Will try 48 hours of paralyzing the patient to see if this will help with oxygenation. Will speak with RT's about permissive hypercapnea and that pH's of 7.2 and greater are ok. Continue high doses steroids. Prognosis is still very very guarded. If not improvement with paralytics, will attempt transfer. 11/23/20: Prone again today for 12 hours. Continue High Dose steroids. Hold on lasix given marginal BP's. Prognosis is very very guarded to poor. Will continue all supportive measures. If not able to wean from 100%, will attempt transfer for ECMO. 11/20/20: WIll change to solumedrol 60q6 today. Hold on lasix today. Given his increasing oxygen requirement, will likely end up intubated. OVerall prognosis is very poor. 11/19/20: lasix 40mg IV x1 today. Will speak with ID but may consider increasing steroids to see if this will help with oxygenation. Continue Remdesivir. Prognosis remains guarded. 11/18/20: Continue bipap, goal is to attempt to prevent prolong intubation for as long as possible. Lasix again today. Steroids and Remdesivir. Guarded Prognosis. 11/17/20: Continue bipap therapy. Monitor mental state. High risk for Intubation. Continue BID anticoagulation. Prone if able. BNP was elevated but not grossly elevated. Will still give lasix with hopes of achieving net negative state. STeroids and remdesivir. Overall prognosis is guarded, extremely guarded. 1. Pulm- Agree with concern for covid. Agree with empiric abx but procal is only mildly elevated. Await cultures. Continue bipap therapy for now but will need to monitor closely. [facility] has ordered CTA, but I spoke with pharmacy and we will empirically treat with BID lovenox therapy. COntinue empiric steroid therapy for COVID until studies back. Not sure that he will be able to prone on bipap therapy. Monitor volume status and run as dry as possible. 2. Renal-normal function but all electrolytes abnormal. HYponatremia and Hypochloremia volume up vs volume down. Sent BNP. Would suggest obtaning echo as well. Not sure what to make of elevated lactate unless that is from increa sed work of breathing or damage to other tissue unknown. May need to check LFT's and Coags as well. 3. Guarded Prognosis. CCT 31 minutes. Subjective Date of service: 11/24/20 Principal diagnosis: COVID-19 Interval history: Still very hypoxic. Objective Vital Signs - 12hr 11/23/20 11/23/20 11/23/20 22:30 22:45 23:00 Temperature Pulse Rate 50 L 51 L 51 L Pulse Rate [ Apical] Pulse Rate [ From Monitor] Respiratory 30 H 30 H 30 H Rate Blood Pressure 101/57 105/63 98/61 O2 Sat by Pulse 100 100 100 Oximetry 11/23/20 11/23/20 11/23/20 23:15 23:30 23:45 Temperature Pulse Rate 51 L 53 L 52 L Pulse Rate [ Apical] Pulse Rate [ From Monitor] Respiratory 30 H 30 H 30 H Rate Blood Pressure 100/62 100/62 101/61 O2 Sat by Pulse 100 100 100 Oximetry 11/23/20 11/23/20 11/24/20 23:52 23:54 00:00 Temperature 98.8 F Pulse Rate 53 L 53 L Pulse Rate [ Apical] Pulse Rate [ From Monitor] Respiratory 30 H 30 H Rate Blood Pressure 101/61 100/58 O2 Sat by Pulse 100 100 Oximetry 11/24/20 11/24/20 11/24/20 00:15 00:30 00:45 Temperature Pulse Rate 53 L 52 L 51 L Pulse Rate [ Apical] Pulse Rate [ From Monitor] Respiratory 30 H 30 H 30 H Rate Blood Pressure 95/61 95/60 99/61 O2 Sat by Pulse 100 100 100 Oximetry 11/24/20 11/24/20 11/24/20 01:00 01:15 01:30 Temperature Pulse Rate 54 L 51 L 52 L Pulse Rate [ Apical] Pulse Rate [ From Monitor] Respiratory 30 H 30 H 30 H Rate Blood Pressure 99/63 100/62 98/62 O2 Sat by Pulse 99 100 100 Oximetry 11/24/20 11/24/20 11/24/20 01:45 01:51 02:00 Temperature Pulse Rate 51 L 52 L 51 L Pulse Rate [ Apical] Pulse Rate [ From Monitor] Respiratory 30 H 30 H Rate Blood Pressure 98/61 98/61 98/59 O2 Sat by Pulse 100 100 100 Oximetry 11/24/20 11/24/20 11/24/20 02:15 02:30 02:45 Temperature Pulse Rate 50 L 51 L 51 L Pulse Rate [ Apical] Pulse Rate [ From Monitor] Respiratory 30 H 30 H 30 H Rate Blood Pressure 97/62 97/60 97/61 O2 Sat by Pulse 100 100 100 Oximetry 11/24/20 11/24/20 11/24/20 03:00 03:14 03:15 Temperature 98.7 F Pulse Rate 49 L 50 L Pulse Rate [ Apical] Pulse Rate [ From Monitor] Respiratory 30 H 30 H Rate Blood Pressure 97/61 94/61 O2 Sat by Pulse 100 100 Oximetry 11/24/20 11/24/20 11/24/20 03:30 03:32 03:45 Temperature Pulse Rate 56 L 56 L 61 Pulse Rate [ Apical] Pulse Rate [ From Monitor] Respiratory 22 21 Rate Blood Pressure 109/63 109/63 112/64 O2 Sat by Pulse 97 96 97 Oximetry 11/24/20 11/24/20 11/24/20 04:00 04:15 04:30 Temperature Pulse Rate 60 61 60 Pulse Rate [ Apical] Pulse Rate [ From Monitor] Respiratory 13 23 18 Rate Blood Pressure 119/65 123/65 133/70 O2 Sat by Pulse 99 97 97 Oximetry 11/24/20 11/24/20 11/24/20 04:45 05:00 05:15 Temperature Pulse Rate 66 75 75 Pulse Rate [ Apical] Pulse Rate [ From Monitor] Respiratory 25 H 26 H 24 Rate Blood Pressure 137/73 143/83 135/71 O2 Sat by Pulse 97 98 96 Oximetry 11/24/20 11/24/20 11/24/20 05:30 05:45 06:00 Temperature Pulse Rate 71 68 70 Pulse Rate [ Apical] Pulse Rate [ From Monitor] Respiratory 24 18 21 Rate Blood Pressure 137/75 123/66 118/67 O2 Sat by Pulse 97 95 94 Oximetry 11/24/20 11/24/20 11/24/20 06:16 06:30 06:45 Temperature Pulse Rate 65 62 60 Pulse Rate [ Apical] Pulse Rate [ From Monitor] Respiratory 16 18 15 Rate Blood Pressure 100/56 94/58 93/58 O2 Sat by Pulse 97 96 95 Oximetry 11/24/20 11/24/20 11/24/20 07:00 07:15 07:30 Temperature 97.9 F Pulse Rate 59 L 59 L 62 Pulse Rate [ Apical] Pulse Rate [ From Monitor] Respiratory 19 19 22 Rate Blood Pressure 100/60 98/62 102/56 O2 Sat by Pulse 96 96 97 Oximetry 11/24/20 11/24/20 11/24/20 07:45 08:00 08:16 Temperature Pulse Rate 63 61 62 Pulse Rate [ 60 Apical] Pulse Rate [ 60 From Monitor] Respiratory 16 29 H 30 H Rate Blood Pressure 106/59 91/56 O2 Sat by Pulse 96 97 96 Oximetry 11/24/20 11/24/20 11/24/20 08:30 08:45 08:55 Temperature Pulse Rate 56 L 67 65 Pulse Rate [ Apical] Pulse Rate [ From Monitor] Respiratory 30 H 13 Rate Blood Pressure 91/54 89/54 89/54 O2 Sat by Pulse 95 98 97 Oximetry 11/24/20 11/24/20 11/24/20 09:00 09:15 09:30 Temperature Pulse Rate 63 67 60 Pulse Rate [ Apical] Pulse Rate [ From Monitor] Respiratory 19 17 27 H Rate Blood Pressure 92/59 90/59 94/60 O2 Sat by Pulse 97 97 96 Oximetry 11/24/20 11/24/20 09:45 10:00 Temperature Pulse Rate 60 62 Pulse Rate [ Apical] Pulse Rate [ From Monitor] Respiratory 13 20 Rate Blood Pressure 85/61 95/59 O2 Sat by Pulse 97 96 Oximetry Constitutional: alert ENT: other (Now intubated) Ascultation: Bilateral: rales, rhonchi Percussion: Bilateral: not dull Cardiovascular: regular rate and rhythm Gastrointestinal: soft, non-tender CBC and BMP: 11/23/20 04:00 11/23/20 04:00 ABG, PT/INR, D-dimer: ABG ABG pH 7.357 (7.320-7.450) 11/24/20 05:36 POC ABG pCO2 42.5 mmHg (32.0-48.0) 11/24/20 05:36 POC ABG pO2 57.2 mmHg (83-108) L 11/24/20 05:36 POC ABG HCO3 23.3 11/24/20 05:36 PT/INR, D-dimer D-Dimer 1433.39 ng/mlDDU (0-234) H 11/24/20 05:14 Abnormal lab findings: Abnormal Labs 11/15/20 11/15/20 11/15/20 10:39 10:39 10:39 WBC 14.3 H RBC 5.17 H Lymph % (Auto) 7.8 L [place] % (Auto) 7.6 H Lymph # (Auto) 1.1 L [place] # (Auto) 1.1 H Baso # (Auto) Seg Neutrophils % 83.3 H Seg Neuts % (Manual) Seg Neutrophils # 11.9 H Seg Neutrophils # Man Lymphocytes # (Manual) D-Dimer ABG pH POC ABG pCO2 POC ABG pO2 ABG Oxyhemoglobin ABG Sodium ABG Potassium ABG Chloride ABG Glucose Sodium 128 L Chloride 96.0 L Carbon Dioxide BUN Creatinine 0.7 L Glucose 238 H POC Glucose Hemoglobin A1c Lactic Acid 4.10 H* Calcium 7.0 L Ferritin Total Bilirubin 1.40 H AST 49 H ALT 70 H Alkaline Phosphatase Lactate Dehydrogenase 663 H C-Reactive Protein 19.80 H Total Protein Albumin 2.9 L Arterial Blood Glucose Arterial Blood Ionized Calcium Ur Specific [place] Coronavirus (PCR) 11/15/20 11/15/20 11/15/20 10:39 10:39 11:20 WBC RBC Lymph % (Auto) Island % (Auto) Lymph # (Auto) [place] # (Auto) Baso # (Auto) Seg Neutrophils % Seg Neuts % (Manual) Seg Neutrophils # Seg Neutrophils # Man Lymphocytes # (Manual) D-Dimer > 12677 H ABG pH POC ABG pCO2 29.9 L POC ABG pO2 137.3 H ABG Oxyhemoglobin ABG Sodium 126.5 L ABG Potassium ABG Chloride ABG Glucose 248 H Sodium Chloride Carbon Dioxide BUN Creatinine Glucose POC Glucose Hemoglobin A1c Lactic Acid Calcium Ferritin 672.8 H Total Bilirubin AST ALT Alkaline Phosphatase Lactate Dehydrogenase C-Reactive Protein Total Protein Albumin Arterial Blood Glucose 248 H Arterial Blood Ionized Calcium 4.1 L Ur Specific [place] Coronavirus (PCR) 11/15/20 11/15/20 11/16/20 13:41 23:41 01:45 WBC RBC Lymph % (Auto) Island % (Auto) Lymph # (Auto) [place] # (Auto) Baso # (Auto) Seg Neutrophils % Seg Neuts % (Manual) Seg Neutrophils # Seg Neutrophils # Man Lymphocytes # (Manual) D-Dimer ABG pH POC ABG pCO2 POC ABG pO2 ABG Oxyhemoglobin ABG Sodium ABG Potassium ABG Chloride ABG Glucose Sodium Chloride Carbon Dioxide BUN Creatinine Glucose POC Glucose 284 H Hemoglobin A1c Lactic Acid 2.30 H* Calcium Ferritin Total Bilirubin AST ALT Alkaline Phosphatase Lactate Dehydrogenase C-Reactive Protein Total Protein Albumin Arterial Blood Glucose Arterial Blood Ionized Calcium Ur Specific [place] 1.037 H Coronavirus (PCR) 11/16/20 11/16/20 11/16/20 05:29 05:29 05:29 WBC 12.9 H RBC Lymph % (Auto) 4.5 L [place] % (Auto) Lymph # (Auto) 0.6 L [place] # (Auto) Baso # (Auto) 0.2 H Seg Neutrophils % 89.8 H Seg Neuts % (Manual) Seg Neutrophils # 11.5 H Seg Neutrophils # Man Lymphocytes # (Manual) D-Dimer ABG pH POC ABG pCO2 POC ABG pO2 ABG Oxyhemoglobin ABG Sodium ABG Potassium ABG Chloride ABG Glucose Sodium 131 L Chloride Carbon Dioxide 21 L BUN 23 H Creatinine 0.6 L Glucose 342 H POC Glucose Hemoglobin A1c Lactic Acid 2.60 H* Calcium 7.0 L Ferritin Total Bilirubin AST ALT Alkaline Phosphatase Lactate Dehydrogenase C-Reactive Protein Total Protein Albumin 2.4 L Arterial Blood Glucose Arterial Blood Ionized Calcium Ur Specific [place] Coronavirus (PCR) 11/16/20 11/16/20 11/16/20 05:29 08:11 12:11 WBC RBC Lymph % (Auto) Island % (Auto) Lymph # (Auto) [place] # (Auto) Baso # (Auto) Seg Neutrophils % Seg Neuts % (Manual) Seg Neutrophils # Seg Neutrophils # Man Lymphocytes # (Manual) D-Dimer ABG pH POC ABG pCO2 POC ABG pO2 ABG Oxyhemoglobin ABG Sodium ABG Potassium ABG Chloride ABG Glucose Sodium Chloride Carbon Dioxide BUN Creatinine Glucose POC Glucose 329 H 320 H Hemoglobin A1c 11.7 H Lactic Acid Calcium Ferritin Total Bilirubin AST ALT Alkaline Phosphatase Lactate Dehydrogenase C-Reactive Protein Total Protein Albumin Arterial Blood Glucose Arterial Blood Ionized Calcium Ur Specific [place] Coronavirus (PCR) 11/16/20 11/16/20 11/16/20 16:13 21:29 Unknown WBC RBC Lymph % (Auto) [place] % (Auto) Lymph # (Auto) [place] # (Auto) Baso # (Auto) Seg Neutrophils % Seg Neuts % (Manual) Seg Neutrophils # Seg Neutrophils # Man Lymphocytes # (Manual) D-Dimer ABG pH POC ABG pCO2 POC ABG pO2 ABG Oxyhemoglobin ABG Sodium ABG Potassium ABG Chloride ABG Glucose Sodium Chloride Carbon Dioxide BUN Creatinine Glucose POC Glucose 257 H 376 H Hemoglobin A1c Lactic Acid Calcium Ferritin Total Bilirubin AST ALT Alkaline Phosphatase Lactate Dehydrogenase C-Reactive Protein Total Protein Albumin Arterial Blood Glucose Arterial Blood Ionized Calcium Ur Specific [place] Coronavirus (PCR) Positive A 11/17/20 11/17/20 11/17/20 07:42 12:07 17:25 WBC RBC Lymph % (Auto) [place] % (Auto) Lymph # (Auto) [place] # (Auto) Baso # (Auto) Seg Neutrophils % Seg Neuts % (Manual) Seg Neutrophils # Seg Neutrophils # Man Lymphocytes # (Manual) D-Dimer ABG pH POC ABG pCO2 POC ABG pO2 ABG Oxyhemoglobin ABG Sodium ABG Potassium ABG Chloride ABG Glucose Sodium Chloride Carbon Dioxide BUN Creatinine Glucose POC Glucose 231 H 380 H 302 H Hemoglobin A1c Lactic Acid Calcium Ferritin Total Bilirubin AST ALT Alkaline Phosphatase Lactate Dehydrogenase C-Reactive Protein Total Protein Albumin Arterial Blood Glucose Arterial Blood Ionized Calcium Ur Specific [place] Coronavirus (PCR) 11/17/20 11/18/20 11/18/20 21:53 04:25 07:45 WBC RBC Lymph % (Auto) [place] % (Auto) Lymph # (Auto) [place] # (Auto) Baso # (Auto) Seg Neutrophils % Seg Neuts % (Manual) Seg Neutrophils # Seg Neutrophils # Man Lymphocytes # (Manual) D-Dimer ABG pH POC ABG pCO2 POC ABG pO2 ABG Oxyhemoglobin ABG Sodium ABG Potassium ABG Chloride ABG Glucose Sodium 136 L Chloride Carbon Dioxide BUN 24 H Creatinine 0.6 L Glucose 212 H POC Glucose 293 H 216 H Hemoglobin A1c Lactic Acid Calcium 7.4 L Ferritin Total Bilirubin AST 41 H ALT Alkaline Phosphatase 142 H Lactate Dehydrogenase C-Reactive Protein Total Protein Albumin 2.3 L Arterial Blood Glucose Arterial Blood Ionized Calcium Ur Specific [place] Coronavirus (PCR) 11/18/20 11/18/20 11/18/20 12:28 15:58 21:37 WBC RBC Lymph % (Auto) [place] % (Auto) Lymph # (Auto) [place] # (Auto) Baso # (Auto) Seg Neutrophils % Seg Neuts % (Manual) Seg Neutrophils # Seg Neutrophils # Man Lymphocytes # (Manual) D-Dimer ABG pH POC ABG pCO2 POC ABG pO2 ABG Oxyhemoglobin ABG Sodium ABG Potassium ABG Chloride ABG Glucose Sodium Chloride Carbon Dioxide BUN Creatinine Glucose POC Glucose 165 H 220 H 311 H Hemoglobin A1c Lactic Acid Calcium Ferritin Total Bilirubin AST ALT Alkaline Phosphatase Lactate Dehydrogenase C-Reactive Protein Total Protein Albumin Arterial Blood Glucose Arterial Blood Ionized Calcium Ur Specific [place] Coronavirus (PCR) 11/19/20 11/19/20 11/19/20 05:35 07:40 12:39 WBC RBC Lymph % (Auto) [place] % (Auto) Lymph # (Auto) [place] # (Auto) Baso # (Auto) Seg Neutrophils % Seg Neuts % (Manual) Seg Neutrophils # Seg Neutrophils # Man Lymphocytes # (Manual) D-Dimer ABG pH POC ABG pCO2 POC ABG pO2 ABG Oxyhemoglobin ABG Sodium ABG Potassium ABG Chloride ABG Glucose Sodium 132 L Chloride Carbon Dioxide BUN 25 H Creatinine 0.5 L Glucose 179 H POC Glucose 149 H 306 H Hemoglobin A1c Lactic Acid Calcium 7.5 L Ferritin Total Bilirubin AST ALT Alkaline Phosphatase 139 H Lactate Dehydrogenase C-Reactive Protein Total Protein Albumin 2.4 L Arterial Blood Glucose Arterial Blood Ionized Calcium Ur Specific [place] Coronavirus (PCR) 11/19/20 11/19/20 11/20/20 16:17 21:25 08:30 WBC RBC Lymph % (Auto) [place] % (Auto) Lymph # (Auto) [place] # (Auto) Baso # (Auto) Seg Neutrophils % Seg Neuts % (Manual) Seg Neutrophils # Seg Neutrophils # Man Lymphocytes # (Manual) D-Dimer ABG pH POC ABG pCO2 POC ABG pO2 ABG Oxyhemoglobin ABG Sodium ABG Potassium ABG Chloride ABG Glucose Sodium Chloride Carbon Dioxide BUN Creatinine Glucose POC Glucose 364 H 347 H 141 H Hemoglobin A1c Lactic Acid Calcium Ferritin Total Bilirubin AST ALT Alkaline Phosphatase Lactate Dehydrogenase C-Reactive Protein Total Protein Albumin Arterial Blood Glucose Arterial Blood Ionized Calcium Ur Specific [place] Coronavirus (PCR) 11/20/20 11/20/20 11/20/20 08:50 11:32 16:19 WBC RBC Lymph % (Auto) [place] % (Auto) Lymph # (Auto) [place] # (Auto) Baso # (Auto) Seg Neutrophils % Seg Neuts % (Manual) Seg Neutrophils # Seg Neutrophils # Man Lymphocytes # (Manual) D-Dimer ABG pH POC ABG pCO2 POC ABG pO2 ABG Oxyhemoglobin ABG Sodium ABG Potassium ABG Chloride ABG Glucose Sodium 132 L Chloride 97.6 L Carbon Dioxide BUN 26 H Creatinine 0.5 L Glucose 201 H POC Glucose 296 H 327 H Hemoglobin A1c Lactic Acid Calcium 7.9 L Ferritin Total Bilirubin AST ALT Alkaline Phosphatase 137 H Lactate Dehydrogenase C-Reactive Protein Total Protein Albumin 2.6 L Arterial Blood Glucose Arterial Blood Ionized Calcium Ur Specific [place] Coronavirus (PCR) 11/20/20 11/21/20 11/21/20 22:09 07:59 13:51 WBC RBC Lymph % (Auto) [place] % (Auto) Lymph # (Auto) [place] # (Auto) Baso # (Auto) Seg Neutrophils % Seg Neuts % (Manual) Seg Neutrophils # Seg Neutrophils # Man Lymphocytes # (Manual) D-Dimer ABG pH POC ABG pCO2 POC ABG pO2 ABG Oxyhemoglobin ABG Sodium ABG Potassium ABG Chloride ABG Glucose Sodium Chloride Carbon Dioxide BUN Creatinine Glucose POC Glucose 311 H 218 H 304 H Hemoglobin A1c Lactic Acid Calcium Ferritin Total Bilirubin AST ALT Alkaline Phosphatase Lactate Dehydrogenase C-Reactive Protein Total Protein Albumin Arterial Blood Glucose Arterial Blood Ionized Calcium Ur Specific [place] Coronavirus (PCR) 11/21/20 11/21/20 11/21/20 16:09 21:34 23:00 WBC RBC Lymph % (Auto) [place] % (Auto) Lymph # (Auto) [place] # (Auto) Baso # (Auto) Seg Neutrophils % Seg Neuts % (Manual) Seg Neutrophils # Seg Neutrophils # Man Lymphocytes # (Manual) D-Dimer ABG pH 7.206 L POC ABG pCO2 59.3 H POC ABG pO2 76.7 L ABG Oxyhemoglobin ABG Sodium 133.1 L ABG Potassium ABG Chloride ABG Glucose 320 H Sodium Chloride Carbon Dioxide BUN Creatinine Glucose POC Glucose 239 H 279 H Hemoglobin A1c Lactic Acid Calcium Ferritin Total Bilirubin AST ALT Alkaline Phosphatase Lactate Dehydrogenase C-Reactive Protein Total Protein Albumin Arterial Blood Glucose 320 H Arterial Blood Ionized Calcium Ur Specific [place] Coronavirus (PCR) 11/22/20 11/22/20 11/22/20 04:52 04:52 04:52 WBC RBC Lymph % (Auto) [place] % (Auto) Lymph # (Auto) [place] # (Auto) Baso # (Auto) Seg Neutrophils % Seg Neuts % (Manual) Seg Neutrophils # Seg Neutrophils # Man Lymphocytes # (Manual) D-Dimer 1858.36 H ABG pH POC ABG pCO2 POC ABG pO2 ABG Oxyhemoglobin ABG Sodium ABG Potassium ABG Chloride ABG Glucose Sodium Chloride Carbon Dioxide BUN Creatinine Glucose POC Glucose Hemoglobin A1c Lactic Acid Calcium Ferritin 734.2 H Total Bilirubin AST ALT Alkaline Phosphatase Lactate Dehydrogenase 404 H C-Reactive Protein 2.80 H Total Protein Albumin Arterial Blood Glucose Arterial Blood Ionized Calcium Ur Specific [place] Coronavirus (PCR) 11/22/20 11/22/20 11/22/20 05:12 05:39 11:50 WBC RBC Lymph % (Auto) [place] % (Auto) Lymph # (Auto) [place] # (Auto) Baso # (Auto) Seg Neutrophils % Seg Neuts % (Manual) Seg Neutrophils # Seg Neutrophils # Man Lymphocytes # (Manual) D-Dimer ABG pH POC ABG pCO2 POC ABG pO2 51.0 L ABG Oxyhemoglobin ABG Sodium 131.2 L ABG Potassium 4.6 H ABG Chloride ABG Glucose 317 H Sodium Chloride Carbon Dioxide BUN Creatinine Glucose POC Glucose 340 H 417 H Hemoglobin A1c Lactic Acid Calcium Ferritin Total Bilirubin AST ALT Alkaline Phosphatase Lactate Dehydrogenase C-Reactive Protein Total Protein Albumin Arterial Blood Glucose 317 H Arterial Blood Ionized Calcium 4.4 L Ur Specific [place] Coronavirus (PCR) 11/22/20 11/22/20 11/22/20 12:22 12:22 17:10 WBC 14.4 H RBC Lymph % (Auto) [place] % (Auto) Lymph # (Auto) [place] # (Auto) Baso # (Auto) Seg Neutrophils % Seg Neuts % (Manual) 98.0 H Seg Neutrophils # Seg Neutrophils # Man 14.1 H Lymphocytes # (Manual) 0.0 L D-Dimer ABG pH POC ABG pCO2 POC ABG pO2 ABG Oxyhemoglobin ABG Sodium ABG Potassium ABG Chloride ABG Glucose Sodium 132 L Chloride Carbon Dioxide BUN 36 H Creatinine 0.6 L Glucose 219 H POC Glucose 157 H Hemoglobin A1c Lactic Acid Calcium 7.2 L Ferritin Total Bilirubin AST ALT Alkaline Phosphatase Lactate Dehydrogenase C-Reactive Protein Total Protein Albumin Arterial Blood Glucose Arterial Blood Ionized Calcium Ur Specific [place] Coronavirus (PCR) 11/22/20 11/22/20 11/22/20 18:33 21:44 23:47 WBC RBC Lymph % (Auto) [place] % (Auto) Lymph # (Auto) [place] # (Auto) Baso # (Auto) Seg Neutrophils % Seg Neuts % (Manual) Seg Neutrophils # Seg Neutrophils # Man Lymphocytes # (Manual) D-Dimer ABG pH POC ABG pCO2 POC ABG pO2 60.8 L ABG Oxyhemoglobin 88.1 L ABG Sodium 135.1 L ABG Potassium ABG Chloride ABG Glucose 141 H Sodium Chloride Carbon Dioxide BUN Creatinine Glucose POC Glucose 117 H 123 H Hemoglobin A1c Lactic Acid Calcium Ferritin Total Bilirubin AST ALT Alkaline Phosphatase Lactate Dehydrogenase C-Reactive Protein Total Protein Albumin Arterial Blood Glucose 141 H Arterial Blood Ionized Calcium Ur Specific [place] Coronavirus (PCR) 11/23/20 11/23/20 11/23/20 04:00 04:00 05:23 WBC 14.4 H RBC Lymph % (Auto) [place] % (Auto) Lymph # (Auto) [place] # (Auto) Baso # (Auto) Seg Neutrophils % Seg Neuts % (Manual) Seg Neutrophils # Seg Neutrophils # Man Lymphocytes # (Manual) D-Dimer ABG pH POC ABG pCO2 POC ABG pO2 ABG Oxyhemoglobin ABG Sodium ABG Potassium ABG Chloride ABG Glucose Sodium 136 L Chloride Carbon Dioxide BUN 33 H Creatinine 0.6 L Glucose 115 H POC Glucose 173 H Hemoglobin A1c Lactic Acid Calcium 7.1 L Ferritin Total Bilirubin AST 64 H ALT 75 H Alkaline Phosphatase Lactate Dehydrogenase C-Reactive Protein Total Protein 5.9 L D Albumin 2.4 L Arterial Blood Glucose Arterial Blood Ionized Calcium Ur Specific [place] Coronavirus (PCR) 11/23/20 11/23/20 11/23/20 05:40 11:27 17:10 WBC RBC Lymph % (Auto) [place] % (Auto) Lymph # (Auto) [place] # (Auto) Baso # (Auto) Seg Neutrophils % Seg Neuts % (Manual) Seg Neutrophils # Seg Neutrophils # Man Lymphocytes # (Manual) D-Dimer ABG pH POC ABG pCO2 POC ABG pO2 56.5 L ABG Oxyhemoglobin ABG Sodium ABG Potassium ABG Chloride 109.0 H ABG Glucose 114 H Sodium Chloride Carbon Dioxide BUN Creatinine Glucose POC Glucose 114 H 136 H Hemoglobin A1c Lactic Acid Calcium Ferritin Total Bilirubin AST ALT Alkaline Phosphatase Lactate Dehydrogenase C-Reactive Protein Total Protein Albumin Arterial Blood Glucose 114 H Arterial Blood Ionized Calcium 4.5 L Ur Specific [place] Coronavirus (PCR) 11/24/20 11/24/20 11/24/20 05:14 05:14 05:14 WBC RBC Lymph % (Auto) [place] % (Auto) Lymph # (Auto) [place] # (Auto) Baso # (Auto) Seg Neutrophils % Seg Neuts % (Manual) Seg Neutrophils # Seg Neutrophils # Man Lymphocytes # (Manual) D-Dimer 1433.39 H ABG pH POC ABG pCO2 POC ABG pO2 ABG Oxyhemoglobin ABG Sodium ABG Potassium ABG Chloride ABG Glucose Sodium Chloride Carbon Dioxide BUN Creatinine Glucose POC Glucose Hemoglobin A1c Lactic Acid Calcium Ferritin 997.5 H Total Bilirubin AST ALT Alkaline Phosphatase Lactate Dehydrogenase 463 H C-Reactive Protein Total Protein Albumin Arterial Blood Glucose Arterial Blood Ionized Calcium Ur Specific [place] Coronavirus (PCR) 11/24/20 11/24/20 05:31 05:36 WBC RBC Lymph % (Auto) [place] % (Auto) Lymph # (Auto) [place] # (Auto) Baso # (Auto) Seg Neutrophils % Seg Neuts % (Manual) Seg Neutrophils # Seg Neutrophils # Man Lymphocytes # (Manual) D-Dimer ABG pH POC ABG pCO2 POC ABG pO2 57.2 L ABG Oxyhemoglobin ABG Sodium ABG Potassium ABG Chloride ABG Glucose 180 H Sodium Chloride Carbon Dioxide BUN Creatinine Glucose POC Glucose 199 H Hemoglobin A1c Lactic Acid Calcium Ferritin Total Bilirubin AST ALT Alkaline Phosphatase Lactate Dehydrogenase C-Reactive Protein Total Protein Albumin Arterial Blood Glucose 180 H Arterial Blood Ionized Calcium 4.5 L Ur Specific [place] Coronavirus (PCR)
[2020-11-24] MEDS: MINERAL OIL/PETROLATUM, WHITE OPHTH OINT 3.5 GM OU SCH ×3 (11:09→22:39)
[2020-11-24] MEDS: SODIUM CHLORIDE 0.9% IV SCH ×2 (11:28→15:09)
[2020-11-24] MEDS: CISATRACURIUM IV SCH ×2 (11:28→15:09)
--- NOTE | 2020-11-24 13:12 | Progress Note ---
Assessment and Plan Cultures: SARS CoV2 PCR: positive Blood culture: No growth 11/21/2019 tracheal aspirate culture: In process A/P: 59-year-old male: #Bilateral pneumonia: secondary to COVID-19. Labs showed leukocytosis, D-dimer greater than 10,000, ferritin 672, CRP 19.8, LDH 663, creatinine 0.6, procalcitonin 0.51 #Acute hypoxic respiratory failure: Failed BiPAP. Remains on the vent. #Elevated d-dimer: DVT scan negative. Unable to get CTA Chest due to patients unstable clinical status #Transaminitis: secondary to COVID-19. Recs: -continue steroids per ICU team: on Solumedrol -completed 5 days of abx, remdesivir -Continue prophylactic anticoagulation based on d-dimer per hospital protocol -trend ferritin, LDH, d-dimer, CRP every 2-3 days for risk stratification and to assess disease progression -guarded prognosis Dayday Driscoll MD, FACP [facility] O: [phone] F: [phone] Subjective Date of service: 11/24/20 Principal diagnosis: COVID-19 Interval history: No fever. Remains on the vent. Objective - Exam Narrative Exam: Physical Exam (reviewed in chart to minimize risk of transmission) Constitutional: deferred Head, Ears, Nose: deferred Eyes: deferred Neck: deferred Oral: deferred Cardiovascular: deferred Respiratory: deferred GI: deferred Musculoskeletal: deferred Skin: deferred Hem/Lymphatic: deferred Psych: deferred Neurological: deferred - Constitutional Vitals: Vital Signs Temp Pulse Resp BP Pulse Ox 97.6 F 76 30 H 124/60 100 11/24/20 12:17 11/24/20 13:00 11/24/20 13:00 11/24/20 13:00 11/24/20 13:00 Temperature -Last 24 Hours Temperature 97.6 F Temperature 97.9 F Temperature 98.7 F Temperature 98.8 F Temperature 98.4 F Temperature 98.4 F - Labs CBC & Chem 7: 11/23/20 04:00 11/23/20 04:00 Labs: Abnormal lab results 11/23/20 11/23/20 11/23/20 Range/Units 05:40 11:27 17:10 D-Dimer (0-234) ng/mlDDU POC ABG pO2 56.5 L (83-108) mmHg ABG Chloride 109.0 H (98-107) mmol/L ABG Glucose 114 H (65-95) mg/dL POC Glucose 114 H 136 H (70-105) mg/dL Ferritin (30.0-300.0) ng/mL Lactate Dehydrogenase (91-180) units/L Arterial Blood Glucose 114 H (65-95) mg/dL Arterial Blood Ionized Calcium 4.5 L (4.6-5.3) mg/dL 11/24/20 11/24/20 11/24/20 Range/Units 05:14 05:14 05:14 D-Dimer 1433.39 H (0-234) ng/mlDDU POC ABG pO2 (83-108) mmHg ABG Chloride (98-107) mmol/L ABG Glucose (65-95) mg/dL POC Glucose (70-105) mg/dL Ferritin 997.5 H (30.0-300.0) ng/mL Lactate Dehydrogenase 463 H (91-180) units/L Arterial Blood Glucose (65-95) mg/dL Arterial Blood Ionized Calcium (4.6-5.3) mg/dL 11/24/20 11/24/20 11/24/20 Range/Units 05:31 05:36 12:05 D-Dimer (0-234) ng/mlDDU POC ABG pO2 57.2 L (83-108) mmHg ABG Chloride (98-107) mmol/L ABG Glucose 180 H (65-95) mg/dL POC Glucose 199 H 143 H (70-105) mg/dL Ferritin (30.0-300.0) ng/mL Lactate Dehydrogenase (91-180) units/L Arterial Blood Glucose 180 H (65-95) mg/dL Arterial Blood Ionized Calcium 4.5 L (4.6-5.3) mg/dL
--- NOTE | 2020-11-24 13:49 | Progress Note ---
Assessment and Plan Assessment and plan: 59-year-old female presents with shortness of breath cough fever weakness. "1 to 2 days. Patient has severe hypoxia per EMS. Her saturations are in the low 80s. With all oxygen and nonrebreather came down to low 90s. Patient denies any past medical history. Exposure to coronavirus present. Does not have a primary care physician. 2/1: Patient continues on BiPAP throughout the night. Labs are remarkable for hypoxia with improving renal function but lactic acidosis without fever. CTA has been ordered to rule out pulmonary embolism. I agree with increasing enoxaparin to twice daily full dose for empiric treatment of pulmonary embolism. Will obtain ID consultation on further evaluation for possible underlying pneumonia versus COVID-19. We will also obtain echocardiogram for evaluation. Will discontinue fluids at this time. 2/2; Continue supportive care, Patient remains with very guarded prognosis, remains on BiPAP, continues on Remdesivir, and steroids. Will continue antic oagulation, unable to get CTA Chest due to patients unstable clinical status. Will adjust insulin for better blood glucose 2/3: Continues on BIPAP, no clear improvement at this time. Will continue st eroids therapy Remdesivir and also Full anticoagulation at this time. Will update family. Discussed with Tuna Purse Seiner. 2/4: Taking a break from the BiPAP on high flow and nonrebreather 100% with satu ration of 90% becomes hypoxic with any movement. Tuna Purse Seiner input noted will get a dose of Lasix today. Will await a discussion with ID for possibly increasing steroid. I updated Patient's Cousin, Tayla Esquivel who is the emergency personnel research psychologist. Blood sugar remains fluctuating secondary to steriods, Encouraged Prone positioning. Noted with mild hyponatremia we will continue to monitor and manage 2/5: Continue supportive care wean oxygen as tolerated prognosis remains guarded. Encouraged to progress as tolerated. Awaiting labs today. Discussed with nursing staff and patient at bedside. 2/6: Discontinued Dexamethasone as Solumedrol started secondary to increased oxygen demand. Will give additional insulin for better control. Continue oxygen support patient still on high flow. Prognosis still guarded 2/7: Patient was intubated and placed on mechanical ventilation. Continue current medication. Will check a.m. labs today. Noted still with hypotension. Doubt septic shock at this time as patient has no new fever. Will adjust insulin for better blood sugar control. 11/23: Patient admitted with COVID-19 despite all efforts patient remains severely hypoxic and now is intubated. Tuna Purse Seiner input noted. Blood pressure marginal at this time. Very poor prognosis. Continue Solu-Medrol. 11/24. Patient remains very hypoxic. Blood pressure borderline. Plan for initiation of paralytic agents as per receiving associate. Patient may need to be transferred if no improvement. Problems (1) Acute respiratory failure with hypoxia 11/17 COVID 19 pneumonia Patient remains fully dependent on mechanical ventilatory support Tuna Purse Seiner on board Plan for initiation of paralytics as per critical care team On solumedrol Prognosis is poor The high probability of a clinically significant, sudden or life threatening deterioration of the [pulmonary] system(s) required my full and direct attention, intervention and personal management. The aggregate critical care time was [35] minutes. This time is in addition to time spent performing reported procedures but includes the following: [X] Data Review and interpretation [X] Patient assessment and monitoring of vital signs [X] Documentation [X] Medication orders and management History Interval history: Remains fully dependent on ventilator Hospitalist Physical - Physical exam Narrative exam: VITAL SIGNS: Reviewed. GENERAL: Sedated and intubated HEAD: No signs of head trauma. EYES: Pupils are equal. Extraocular motions intact. MOUTH: Oropharynx is normal. NECK: No adenopathy, no JVD. CHEST: Chest with diminished breath sounds bilaterally. No wheezes, rales, or rhonchi. CARDIAC: normal S1 and S2, without murmurs, gallops, or rubs. ABDOMEN: Soft, non tender and non distended. No rebound or guarding, and no masses palpated. Bowel Sounds normal. MUSCULOSKELETAL: No edema NEUROLOGIC EXAM: Sedated SKIN: No obvious lesions - Constitutional Vitals: Temp Pulse Resp BP Pulse Ox 97.6 F 76 30 H 124/60 100 11/24/20 12:17 11/24/20 13:00 11/24/20 13:00 11/24/20 13:00 11/24/20 13:00 HEART Score - HEART Score Troponin: Troponin T < 0.010 ng/mL (0.00-0.029) 11/22/20 Unknown Results - Labs CBC & Chem 7: 11/23/20 04:00 11/23/20 04:00 Labs: Laboratory Last Values WBC 14.4 K/mm3 (4.5-11.0) H 11/23/20 04:00 RBC 4.40 M/mm3 (3.65-5.03) 11/23/20 04:00 Hgb 13.1 gm/dl (11.8-15.2) 11/23/20 04:00 Hct 39.2 % (35.5-45.6) 11/23/20 04:00 MCV 89 fl (84-94) 11/23/20 04:00 MCH 30 pg (28-32) 11/23/20 04:00 MCHC 33 % (32-34) 11/23/20 04:00 RDW 13.7 % (13.2-15.2) 11/23/20 04:00 Plt Count 263 K/mm3 (140-440) 11/23/20 04:00 Lymph % (Auto) 4.5 % (13.4-35.0) L 11/16/20 05:29 Owen % (Auto) 4.3 % (0.0-7.3) 11/16/20 05:29 Eos % (Auto) 0.0 % (0.0-4.3) 11/16/20 05:29 Baso % (Auto) 1.4 % (0.0-1.8) 11/16/20 05:29 Lymph # (Auto) 0.6 K/mm3 (1.2-5.4) L 11/16/20 05:29 Owen # (Auto) 0.6 K/mm3 (0.0-0.8) 11/16/20 05:29 Eos # (Auto) 0.0 K/mm3 (0.0-0.4) 11/16/20 05:29 Baso # (Auto) 0.2 K/mm3 (0.0-0.1) H 11/16/20 05:29 Add Manual Diff Complete 11/22/20 12:22 Total Counted 100 11/22/20 12:22 Seg Neutrophils % Fisheries Technical Officer 11/22/20 12:22 Seg Neuts % (Manual) 98.0 % (40.0-70.0) H 11/22/20 12:22 Monocytes % (Manual) 2.0 % (0.0-7.3) 11/22/20 12:22 Nucleated RBC % Not Reportable 11/22/20 12:22 Seg Neutrophils # 11.5 K/mm3 (1.8-7.7) H 11/16/20 05:29 Seg Neutrophils # Man 14.1 K/mm3 (1.8-7.7) H 11/22/20 12:22 Band Neutrophils # 0.0 K/mm3 11/22/20 12:22 Lymphocytes # (Manual) 0.0 K/mm3 (1.2-5.4) L 11/22/20 12:22 Abs React Lymphs (Man) 0.0 K/mm3 11/22/20 12:22 Monocytes # (Manual) 0.3 K/mm3 (0.0-0.8) 11/22/20 12:22 Eosinophils # (Manual) 0.0 K/mm3 (0.0-0.4) 11/22/20 12:22 Basophils # (Manual) 0.0 K/mm3 (0.0-0.1) 11/22/20 12:22 Metamyelocytes # 0.0 K/mm3 11/22/20 12:22 Myelocytes # 0.0 K/mm3 11/22/20 12:22 Promyelocytes # 0.0 K/mm3 11/22/20 12:22 Blast Cells # 0.0 K/mm3 11/22/20 12:22 WBC Morphology Not Reportable 11/22/20 12:22 WBC Morphology TNR 11/22/20 12:22 Hypersegmented Neuts Not Reportable 11/22/20 12:22 Hyposegmented Neuts Not Reportable 11/22/20 12:22 Hypogranular Neuts Not Reportable 11/22/20 12:22 Smudge Cells Not Reportable 11/22/20 12:22 Toxic Granulation Not Reportable 11/22/20 12:22 Toxic Vacuolation Not Reportable 11/22/20 12:22 Dohle Bodies Not Reportable 11/22/20 12:22 Pelger-Huet Anomaly Not Reportable 11/22/20 12:22 Tony Rods Not Reportable 11/22/20 12:22 Platelet Estimate Consistent w auto 11/22/20 12:22 Clumped Platelets Not Reportable 11/22/20 12:22 Plt Clumps, EDTA Not Reportable 11/22/20 12:22 Large Platelets Not Reportable 11/22/20 12:22 Giant Platelets Not Reportable 11/22/20 12:22 Platelet Satelliting Not Reportable 11/22/20 12:22 Plt Morphology Comment Not Reportable 11/22/20 12:22 RBC Morphology Normal 11/22/20 12:22 Dimorphic RBCs Not Reportable 11/22/20 12:22 Polychromasia Not Reportable 11/22/20 12:22 Hypochromasia Not Reportable 11/22/20 12:22 Poikilocytosis Not Reportable 11/22/20 12:22 Anisocytosis Not Reportable 11/22/20 12:22 Microcytosis Not Reportable 11/22/20 12:22 Macrocytosis Not Reportable 11/22/20 12:22 Spherocytes Not Reportable 11/22/20 12:22 Pappenheimer Bodies Not Reportable 11/22/20 12:22 Sickle Cells Not Reportable 11/22/20 12:22 Target Cells Not Reportable 11/22/20 12:22 Tear Drop Cells Not Reportable 11/22/20 12:22 Ovalocytes Not Reportable 11/22/20 12:22 Helmet Cells Not Reportable 11/22/20 12:22 Cabrera-Quimby Bodies Not Reportable 11/22/20 12:22 [place] Rings Not Reportable 11/22/20 12:22 [place] Cells Not Reportable 11/22/20 12:22 Bite Cells Not Reportable 11/22/20 12:22 Crenated Cell Not Reportable 11/22/20 12:22 Elliptocytes Not Reportable 11/22/20 12:22 Acanthocytes (Spur) Not Reportable 11/22/20 12:22 Rouleaux Not Reportable 11/22/20 12:22 Hemoglobin C Crystals Not Reportable 11/22/20 12:22 Schistocytes Not Reportable 11/22/20 12:22 Malaria parasites Not Reportable 11/22/20 12:22 Yovani Bodies Not Reportable 11/22/20 12:22 Hem Pathologist Commnt No 11/22/20 12:22 D-Dimer 1433.39 ng/mlDDU (0-234) H 11/24/20 05:14 ABG pH 7.357 (7.320-7.450) 11/24/20 05:36 POC ABG pCO2 42.5 mmHg (32.0-48.0) 11/24/20 05:36 POC ABG pO2 57.2 mmHg (83-108) L 11/24/20 05:36 POC ABG HCO3 23.3 11/24/20 05:36 POC ABG Base Excess -2.2 11/24/20 05:36 ABG Hemoglobin 15.2 (12.0-17.5) 11/24/20 05:36 ABG Oxyhemoglobin 88.1 (94-98) L 11/22/20 18:33 ABG Methemoglobin 0.3 (0.0-1.5) 11/22/20 18:33 ABG Sodium 139.0 mmol/L (136.0-145.0) 11/24/20 05:36 ABG Potassium 4.3 mmol/L (3.40-4.50) 11/24/20 05:36 ABG Chloride 107.0 mmol/L (98-107) 11/24/20 05:36 ABG Glucose 180 mg/dL (65-95) H 11/24/20 05:36 Carboxyhemoglobin 1.1 (0.5-1.5) 11/22/20 18:33 FiO2 100 11/24/20 05:36 Sodium 136 mmol/L (137-145) L 11/23/20 04:00 Potassium 4.3 mmol/L (3.6-5.0) 11/23/20 04:00 Chloride 105.6 mmol/L (98-107) 11/23/20 04:00 Carbon Dioxide 26 mmol/L (22-30) 11/23/20 04:00 Anion Gap 9 mmol/L 11/23/20 04:00 BUN 33 mg/dL (9-20) H 11/23/20 04:00 Creatinine 0.6 mg/dL (0.8-1.3) L 11/23/20 04:00 Estimated GFR > 60 ml/min 11/23/20 04:00 BUN/Creatinine Ratio 55 % 11/23/20 04:00 Glucose 115 mg/dL (75-100) H 11/23/20 04:00 POC Glucose 143 mg/dL (70-105) H 11/24/20 12:05 Hemoglobin A1c 11.7 % (4-6) H 11/16/20 05:29 Lactic Acid 2.60 mmol/L (0.7-2.0) H* 11/16/20 05:29 Calcium 7.1 mg/dL (8.4-10.2) L 11/23/20 04:00 Ferritin 997.5 ng/mL (30.0-300.0) H 11/24/20 05:14 Total Bilirubin 0.60 mg/dL (0.1-1.2) 11/23/20 04:00 AST 64 units/L (5-40) H 11/23/20 04:00 ALT 75 units/L (7-56) H 11/23/20 04:00 Alkaline Phosphatase 102 units/L (35-129) 11/23/20 04:00 Lactate Dehydrogenase 463 units/L (91-180) H 11/24/20 05:14 Troponin T < 0.010 ng/mL (0.00-0.029) 11/22/20 Unknown C-Reactive Protein 1.10 mg/dL (0.00-1.30) 11/24/20 05:14 NT-Pro-B Natriuret Pep 107.2 pg/mL (0-900) 11/17/20 10:21 Total Protein 5.9 g/dL (6.3-8.2) L D 11/23/20 04:00 Albumin 2.4 g/dL (3.9-5) L 11/23/20 04:00 Albumin/Globulin Ratio 0.7 % 11/23/20 04:00 Procalcitonin 0.51 ng/mL (<0.15) 11/15/20 10:39 Arterial Blood Glucose 180 mg/dL (65-95) H 11/24/20 05:36 Arterial Blood Ionized Calcium 4.5 mg/dL (4.6-5.3) L 11/24/20 05:36 Urine Color Faustina (Yellow) 11/16/20 01:45 Urine Turbidity Slightly-cloudy (Clear) 11/16/20 01:45 Urine pH 6.0 (5.0-7.0) 11/16/20 01:45 Ur Specific [place] 1.037 (1.003-1.030) H 11/16/20 01:45 Urine Protein 30 mg/dl mg/dL (Negative) 11/16/20 01:45 Urine Glucose (UA) >=500 mg/dL (Negative) 11/16/20 01:45 Urine Ketones 20 mg/dL (Negative) 11/16/20 01:45 Urine Blood Neg (Negative) 11/16/20 01:45 Urine Nitrite Neg (Negative) 11/16/20 01:45 Urine Bilirubin Neg (Negative) 11/16/20 01:45 Urine Urobilinogen 2.0 mg/dL (<2.0) 11/16/20 01:45 Ur Leukocyte Esterase Neg (Negative) 11/16/20 01:45 Urine WBC (Auto) 2.0 /HPF (0.0-6.0) 11/16/20 01:45 Urine RBC (Auto) 1.0 /HPF (0.0-6.0) 11/16/20 01:45 Urine Bacteria (Auto) 1+ /HPF (Negative) 11/16/20 01:45 Urine Mucus 3+ /HPF 11/16/20 01:45 Coronavirus (PCR) Positive (Negative) A 11/16/20 Unknown - Diagnostic Impressions Diagnostic Impressions: Echocardiogram 11/16/20 10:34 Transthoracic Echocardiogram Indication: Shortness of breath-COVID BP: 108/77 HR: 92 Conclusions *Global left ventricular systolic function is normal. *The estimated ejection fraction is 60-65%. *Mild to moderate concentric left ventricular hypertrophy is observed. *There is trace of mitral regurgitation. *There is mild to moderate tricuspid regurgitation. *There is evidence of mild pulmonary hypertension. *The right ventricular systolic pressure is calculated at 31 mmHg. Findings Left Ventricle: The left ventricular chamber size is normal. Mild to moderate concentric left ventricular hypertrophy is observed. Global left ventricular systolic function is normal. The estimated ejection fraction is 60-65%. Left Atrium: The left atrial chamber size is normal. Right Ventricle: The right ventricular cavity size is normal. The right ventricular global systolic function is normal. Right Atrium: The right atrial cavity size is normal. Aortic Valve: The aortic valve is trileaflet. There is no evidence of aortic regurgitation. There is no evidence of aortic stenosis. Mitral Valve: The mitral valve leaflets appear normal. There is trace of mitral regurgitation. There is no evidence of mitral stenosis. Tricuspid Valve: The tricuspid valve leaflets are normal. There is mild to moderate tricuspid regurgitation. The right ventricular systolic pressure is calculated at 31 mmHg. There is evidence of mild pulmonary hypertension. Pulmonic Valve: There is trace pulmonic regurgitation. Pericardium: There is no pericardial effusion. Aorta: There is no dilatation of the ascending aorta. There is no dilatation of the aortic root. Venous: The inferior vena cava appears normal in size. Measurements Chambers 2D Name Value Normal Range IVSd (2D) 0.81 cm (0.6 - 1.1) LVPWd (2D) 0.79 cm (0.6 - 1.1) LVIDd (2D) 4.22 cm (3.7 - 5.6) LVIDs (2D) 3.1 cm (2 - 3.8) LV FS (2D) 26.71 % - EF Teichholz (2D) 52.55 % - Ao root diameter (2D) 3.34 cm (2 - 3.7) Volumes/Mass Name Value Normal Range LA ESV SP 4CH (A/L) 10.87 ml - LA ESV SP 2CH (A/L) 18.74 ml - LA ESV BP (A/L) 16.38 ml - LA ESV BP (A/L) index 8.62 ml/m2 - LA ESV SP 4CH (MOD) 10.32 ml - LA ESV SP 2CH (MOD) 17.66 ml - LA ESV BP (MOD) 15.12 ml - LA ESV BP (MOD) index 7.96 ml/m2 - Diastolic/Systolic Function Name Value Normal Range MV E-wave Vmax 0.76 m/sec - MV deceleration time 133.63 msec - MV A-wave Vmax 1.1 m/sec - MV E:A ratio 0.69 ratio - Aortic Valve Name Value Normal Range AV Vmax 1.44 m/sec - AV VTI 22.94 cm - AV peak gradient 8.33 mmHg - AV mean gradient 4.73 mmHg - LVOT diameter 2.2 cm - LVOT Vmax 1.04 m/sec - LVOT VTI 18.88 cm - LVOT peak gradient 4.34 mmHg - LVOT mean gradient 2.31 mmHg - SV LVOT 72.05 ml - EVANGELISTA (continuity Vmax) 2.75 cm2 - EVANGELISTA (continuity VTI) 3.14 cm2 - Tricuspid Valve Name Value Normal Range TR Vmax 2.64 m/sec - TR peak gradient 28 mmHg - RAP 3 mmHg - RVSP 31 mmHg - Gupta/IV: Voiding Method Indwelling Catheter IV Catheter Type [Left Peripheral IV Antecubital] Active Medications - Current Medications Current Medications: Generic Name Dose Route Start Last Admin Trade Name Freq PRN Reason Stop Dose Admin Acetaminophen 650 mg 11/15/20 23:55 11/18/20 22:19 Acetaminophen 325 Mg Tab PO 650 mg Q4H PRN Administration Pain MILD(1-3)/Fever >100.5/BUTTS Lipase/Protease/Amylase 1 each 11/23/20 11:53 Lipase 10,500/Protease 25,000/Amylase 43,750 (Units) Dr Cap FEEDTUBE PRN PRN For Clogged Feeding Tube Enoxaparin Sodium 80 mg 11/16/20 10:00 11/24/20 09:23 Enoxaparin 80 Mg/0.8 Ml Inj SUB-Q 80 mg Q12HR RAEANN Administration Famotidine 20 mg 11/22/20 22:00 11/24/20 09:23 Famotidine 20 Mg/2 Ml Inj IV 20 mg BID RAEANN Administration Fentanyl 50 mcg 11/21/20 21:53 Fentanyl 100 Mcg/2 Ml Inj IV Q10MIN PRN ANALGESIA Hydrophilic Ointment 1 applic 11/21/20 21:53 Lip Therapy Vaseline TP Q2HR PRN Dry Lips Fentanyl Citrate 2,000 mcg in 100 mls @ 3.625 mls/hr 11/21/20 22:00 11/24/20 11:09 Fentanyl Drip Premix IV 4 mcg/kg/hr TITR RAEANN 14.5 mls/hr Administration Protocol 1 MCG/KG/HR Midazolam HCl 100 mg/ Sodium 100 mls @ 2 mls/hr 11/21/20 22:00 11/23/20 08:32 Chloride IV 3 mg/hr TITR RAEANN 3 mls/hr Administration Protocol 2 MG/HR Norepinephrine 4 mg in 250 mls @ 7.5 mls/hr 11/22/20 17:00 Levophed Drip 4 Mg/Ns 250 Ml IV TITR RAEANN Protocol 2 MCG/MIN Cisatracurium Besylate 20 mg/ 200 mls @ 43.5 mls/hr 11/24/20 11:00 11/24/20 11:28 Sodium Chloride IV 11/26/20 10:59 1 mcg/kg/min TITR RAEANN 43.5 mls/hr Administration Protocol 1 MCG/KG/MIN Insulin Glargine 30 units 11/21/20 22:00 11/23/20 22:00 Insulin Glargine 100 Units/Ml SUB-Q Not Given QHS [facility] Insulin Human Lispro 0 unit 11/22/20 06:00 11/24/20 12:43 Insulin Lispro 100 Unit/Ml SUB-Q Not Given Q6HR [facility] Protocol Methylprednisolone Sodium Succinate 60 mg 11/20/20 12:00 11/24/20 11:10 Methylprednisolone Sod Succinate 125 Mg/2 Ml Inj IV 60 mg Q6HR [facility] Administration Metoclopramide HCl 10 mg 11/15/20 23:55 Metoclopramide 10 Mg/2 Ml Inj IV Q6H PRN Nausea And Vomiting Midazolam HCl 2 mg 11/21/20 21:53 Midazolam 2 Mg/2 Ml Inj IV Q10MIN PRN Sedation Multi-Ingred Cream/Lotion/Oil/Oint 1 applic 11/21/20 21:53 Mineral Oil/Petrolatum, White Ophth Oint 3.5 Gm OU Q4HR PRN Dry Eye(s) Multi-Ingred Cream/Lotion/Oil/Oint 1 applic 11/24/20 11:00 11/24/20 11:09 Mineral Oil/Petrolatum, White Ophth Oint 3.5 Gm OU 1 applic Q6H [facility] Administration Ondansetron HCl 4 mg 11/15/20 23:55 Ondansetron 4 Mg/2 Ml Inj IV Q8H PRN Nausea And Vomiting Simple Syrup 15 ml 11/23/20 11:53 Simple Syrup 15 Ml FEEDTUBE PRN PRN Hypoglycemia Simple Syrup 30 ml 11/23/20 11:53 Simple Syrup 15 Ml FEEDTUBE PRN PRN Hypoglycemia Sodium Bicarbonate 325 mg 11/23/20 11:53 Sodium Bicarbonate 325 Mg Tab FEEDTUBE PRN PRN For Clogged Feeding Tube Sodium Chloride 10 ml 11/16/20 10:00 11/24/20 09:24 Sodium Chloride 0.9% 10 Ml Flush Syringe IV 10 ml BID [facility] Administration Sodium Chloride 10 ml 11/15/20 23:55 Sodium Chloride 0.9% 10 Ml Flush Syringe IV PRN PRN LINE FLUSH Nutrition/Malnutrition Assess - Dietary Evaluation Nutrition/Malnutrition Findings: Nutrition Notes Start: 11/20/20 12:03 Freq: Status: Active Protocol: Document 11/24/20 11:31 KIT (Rec: 11/24/20 11:52 KIT [id number]) Co-Sign 11/24/20 11:31 GERRY Nutrition Notes Initial or Follow up Reassessment Current Diagnosis Diabetes,Sepsis,Respiratory Failure Other Pertinent Diagnosis Bilat pneu, COVID-19 (+) Current Diet Glucerna 1.2 at 100 ml/hr when not proned, 20 ml when proned Labs/Tests 11/23/20: Na 136 BUN 33 Cr 0.6 11/24/20: BG POC 199 Pertinent Medications Solu-Medrol Humalog 3 units Height 5 ft 6 in Weight 72.5 kg Usual Body Weight 80.5 kg [place] Body Weight (kg) 64.54 BMI 25.7 Weight Status Overweight Subjective/Other Information F/u TF tolerance and renal labs. Observed pt supine at 30 degrees HOB and TF running at 20 ml/hr. Communicated with RN to increase TF as tolerated while supine. Noted pt's BUN increased but potassium WNL. Percent of energy/protein needs met: 32%/33% (proned) Burn Absent Trauma Absent GI Symptoms None Current % PO Negligible Minimum of two criteria Yes Energy Intake (severe) < or equal to 50% Estimated Energy Requirement > or equal to 5 days Interpretation of Weight Loss (severe) >2% in 1 week #3 Nutrition Diagnosis Inadequate oral intake Diagnosis Progress(for reassessment Continues documentation) #2 Nutrition Diagnosis Malnutrition Diagnosis Progress(for reassessment Continues documentation) #1 Nutrition Diagnosis Unintended weight loss Diagnosis Progress(for reassessment Continues documentation) Is patient on ventilator? Yes Is Patient Ambulatory and/or Out of Bed No REE-([place]-St Jeor-confined to bed) 6290.004 Calculation Used for Recommendations [facility] Additional Notes Protein needs 1.2-2g/k-145g/day Fluid 1ml/kcal or per MD Nutrition Intervention Change Diet Order: Continue TF, updated flush due to low Na. Nutrition Support: Supine (12h): Glucerna 1.2 at 100ml/hr with flush of 100 ml q4h. Prone (12h): Glucerna 1.2 at 20 ml/hr with flush of 50 ml q4h. Kcal 1,728 Protein (gm) 86 Fluid (mL) 1,159 Goal #1 TF tolerance Goal #2 Meet at least 75% of energy and protein needs via TF Anticipated Discharge Needs: Unknown at this time Follow-Up By: 11/26/20 Additional Comments F/u TF tolerance
[2020-11-24] MEDS: MIDAZOLAM 100 MG in SODIUM CHLORIDE 0.9% 80 ML IV SCH (14:22)
[2020-11-24] MEDS: INSULIN GLARGINE 100 UNITS/ML SUB-Q SCH (22:10)
[2020-11-25] MEDS: SODIUM CHLORIDE 0.9% IV SCH ×3 (00:13→16:54)
[2020-11-25] MEDS: CISATRACURIUM IV SCH ×3 (00:13→16:54)
[2020-11-25] MEDS: methylPREDNISolone Sod Succinate 125 MG/2 ML INJ IV SCH ×5 (01:00→23:53)
[2020-11-25] MEDS: INSULIN LISPRO 100 UNIT/ML SUB-Q SCH ×5 (01:00→23:53)
[2020-11-25] MEDS: fentaNYL DRIP Premix 2,000 MCG/100 ML BAG IV SCH ×4 (01:01→20:47)
[2020-11-25] MEDS: MINERAL OIL/PETROLATUM, WHITE OPHTH OINT 3.5 GM OU SCH ×4 (05:39→23:55)
[2020-11-25 06:32] LABS: Hematocrit 42.9 % (35.5-45.6); Hemoglobin 13.7 gm/dl (11.8-15.2); Mean Corpuscular HGB Conc 32 % (32-34); Mean Corpuscular Volume 90 fl (84-94); Platelet Count 290 K/mm3 (140-440); Red Blood Count 4.74 M/mm3 (3.65-5.03); Red Cell Distribution Width 13.7 % (13.2-15.2)
[2020-11-25 07:01] LABS: Alanine Aminotransferase 129 units/L (7-56); Albumin 2.5 g/dL (3.9-5); Blood Urea Nitrogen 29 mg/dL (9-20); Calcium 7.8 mg/dL (8.4-10.2); Hemolysis Index 1
[2020-11-25 07:02] LABS: BUN/Creatinine Ratio 58
--- NOTE | 2020-11-25 08:49 | XRay Report ---
CHEST 1 VIEW INDICATION: follow up respiratory failure COMPARISON: 11/24/2020 FINDINGS: SUPPORT DEVICES: Endotracheal tubes in good position. PICC line has tip in the superior vena cava. Th ere is gastric tube has its tip in stomach. HEART / MEDIASTINUM: No significant abnormality. LUNGS / PLEURA: Persistent diffuse pulmonary process noted. No pneumothorax. ADDITIONAL FINDINGS: IMPRESSION: 1. No interval change as compared to previous exam Signer Name: Demetrio Maldonado MD Signed: 11/25/2020 8:44 AM Workstation Name: [id number]
[2020-11-25] MEDS: FAMOTIDINE 20 MG/2 ML INJ IV SCH ×2 (10:08→21:55)
[2020-11-25] MEDS: ENOXAPARIN 80 MG/0.8 ML INJ SUB-Q SCH ×2 (10:08→21:55)
--- NOTE | 2020-11-25 11:57 | Progress Note ---
Assessment and Plan 59 y/o male with acute respiratory failure, abnormal CXR and abnormal lab studies. 11/25/20: Prone again to 16 hours, will prone at 12-12:30. Continue paralytics for 24 more hours. Discussed the idea of permissive hypercapnea again today and as long as pH is above 7.2 no changes should be made to TV and or RR without discussing with physician. Continue to monitor urine output, guarded prognosis. Hold on lasix therapy today. 11/24/20: Prone again today. Will try 48 hours of paralyzing the patient to see if this will help with oxygenation. Will speak with RT's about permissive hypercapnea and that pH's of 7.2 and greater are ok. Continue high doses steroids. Prognosis is still very very guarded. If not improvement with paralytics, will attempt transfer. 11/23/20: Prone again today for 12 hours. Continue High Dose steroids. Hold on lasix given marginal BP's. Prognosis is very very guarded to poor. Will continue all supportive measures. If not able to wean from 100%, will attempt transfer for ECMO. 11/20/20: WIll change to solumedrol 60q6 today. Hold on lasix today. Given his increasing oxygen requirement, will likely end up intubated. OVerall prognosis is very poor. 11/19/20: lasix 40mg IV x1 today. Will speak with ID but may consider increasing steroids to see if this will help with oxygenation. Continue Remdesivir. Prognosis remains guarded. 11/18/20: Continue bipap, goal is to attempt to prevent prolong intubation for as long as possible. Lasix again today. Steroids and Remdesivir. Guarded Prognosis. 11/17/20: Continue bipap therapy. Monitor mental state. High risk for Intubation. Continue BID anticoagulation. Prone if able. BNP was elevated but not grossly elevated. Will still give lasix with hopes of achieving net negative state. STeroids and remdesivir. Overall prognosis is guarded, extremely guarded. 1. Pulm- Agree with concern for covid. Agree with empiric abx but procal is only mildly elevated. Await cultures. Continue bipap therapy for now but will need to monitor closely. [facility] has ordered CTA, but I spoke with pharmacy and we will empirically treat with BID lovenox therapy. COntinue empiric steroid therapy for COVID until studies back. Not sure that he will be able to prone on bipap therapy. Monitor volume status and run as dry as possible. 2. Renal-normal function but all electrolytes abnormal. HYponatremia and Hypochloremia volume up vs volume down. Sent BNP. Would suggest obtaning echo as well. Not sure what to make of elevated lactate unless that is from increased work of breathing or damage to other tissue unknown. May need to check LFT's and Coags as well. 3. Guarded Prognosis. CCT 31 minutes. Subjective Date of service: 11/25/20 Principal diagnosis: COVID-19 Interval history: Tolerated paralytics and proning well. Proned for 16 hours with improvement in PaO2 up to 132. Still remains on 100%. Gas this am was on 100%. Still making good urine. Objective Vital Signs - 12hr 11/25/20 11/25/20 11/25/20 00:00 00:13 00:15 Temperature 98.8 F Pulse Rate 74 76 75 Pulse Rate [ 79 From Monitor] Respiratory 30 H 30 H Rate Blood Pressure 99/57 102/61 102/61 O2 Sat by Pulse 100 100 100 Oximetry 11/25/20 11/25/20 11/25/20 00:30 00:45 01:00 Temperature Pulse Rate 75 71 70 Pulse Rate [ From Monitor] Respiratory 30 H 28 H 30 H Rate Blood Pressure 101/59 94/57 106/58 O2 Sat by Pulse 100 100 100 Oximetry 11/25/20 11/25/20 11/25/20 01:15 01:30 01:45 Temperature Pulse Rate 71 71 68 Pulse Rate [ From Monitor] Respiratory 30 H 30 H 30 H Rate Blood Pressure 103/59 102/61 106/58 O2 Sat by Pulse 100 100 100 Oximetry 11/25/20 11/25/20 11/25/20 02:00 02:15 02:30 Temperature Pulse Rate 68 72 69 Pulse Rate [ From Monitor] Respiratory 30 H 31 H 31 H Rate Blood Pressure 107/58 102/61 106/58 O2 Sat by Pulse 100 100 100 Oximetry 11/25/20 11/25/20 11/25/20 02:45 03:00 03:15 Temperature Pulse Rate 67 70 67 Pulse Rate [ From Monitor] Respiratory 31 H 31 H 32 H Rate Blood Pressure 101/56 101/57 101/60 O2 Sat by Pulse 100 100 100 Oximetry 11/25/20 11/25/20 11/25/20 03:30 03:45 04:00 Temperature 98.7 F Pulse Rate 67 66 66 Pulse Rate [ 79 From Monitor] Respiratory 31 H 30 H 31 H Rate Blood Pressure 101/57 106/61 105/61 O2 Sat by Pulse 100 100 100 Oximetry 11/25/20 11/25/20 11/25/20 04:15 04:30 04:41 Temperature Pulse Rate 65 65 66 Pulse Rate [ From Monitor] Respiratory 30 H 30 H Rate Blood Pressure 111/61 104/60 104/60 O2 Sat by Pulse 100 100 97 Oximetry 11/25/20 11/25/20 11/25/20 04:45 05:00 05:15 Temperature Pulse Rate 66 60 61 Pulse Rate [ From Monitor] Respiratory 28 H 26 H 30 H Rate Blood Pressure 111/56 108/58 109/60 O2 Sat by Pulse 98 99 100 Oximetry 11/25/20 11/25/20 11/25/20 05:30 05:45 06:00 Temperature Pulse Rate 60 60 61 Pulse Rate [ From Monitor] Respiratory 24 19 26 H Rate Blood Pressure 111/57 109/58 112/57 O2 Sat by Pulse 100 100 100 Oximetry 11/25/20 11/25/20 11/25/20 06:15 06:30 06:45 Temperature Pulse Rate 66 69 66 Pulse Rate [ From Monitor] Respiratory 24 18 16 Rate Blood Pressure 113/59 116/60 112/60 O2 Sat by Pulse 100 100 100 Oximetry 11/25/20 11/25/20 11/25/20 07:00 07:15 07:30 Temperature Pulse Rate 64 66 64 Pulse Rate [ From Monitor] Respiratory 31 H 18 18 Rate Blood Pressure 114/60 116/61 108/60 O2 Sat by Pulse 100 100 100 Oximetry 11/25/20 11/25/20 11/25/20 07:45 08:00 08:15 Temperature 98.4 F Pulse Rate 64 67 66 Pulse Rate [ 68 From Monitor] Respiratory 14 24 25 H Rate Blood Pressure 116/61 112/60 118/62 O2 Sat by Pulse 100 100 100 Oximetry 11/25/20 11/25/20 11/25/20 08:30 08:45 09:00 Temperature Pulse Rate 64 68 66 Pulse Rate [ From Monitor] Respiratory 28 H 30 H 28 H Rate Blood Pressure 120/65 115/61 115/63 O2 Sat by Pulse 100 100 100 Oximetry 11/25/20 11/25/20 11/25/20 09:15 09:30 09:45 Temperature Pulse Rate 67 65 68 Pulse Rate [ From Monitor] Respiratory 28 H 30 H 28 H Rate Blood Pressure 115/61 113/61 121/63 O2 Sat by Pulse 100 100 100 Oximetry 11/25/20 11/25/20 11/25/20 10:00 10:15 10:30 Temperature Pulse Rate 68 62 63 Pulse Rate [ From Monitor] Respiratory 25 H 16 13 Rate Blood Pressure 111/61 110/62 110/57 O2 Sat by Pulse 100 100 100 Oximetry 11/25/20 11/25/20 10:45 11:00 Temperature Pulse Rate 65 66 Pulse Rate [ From Monitor] Respiratory 16 26 H Rate Blood Pressure 108/58 113/60 O2 Sat by Pulse 100 100 Oximetry Constitutional: alert ENT: other (Now intubated) Ascultation: Bilateral: rales, rhonchi Percussion: Bilateral: not dull Cardiovascular: regular rate and rhythm Gastrointestinal: soft, non-tender CBC and BMP: 11/25/20 05:15 11/25/20 05:15 ABG, PT/INR, D-dimer: ABG ABG pH 7.272 (7.320-7.450) L 11/25/20 03:29 POC ABG pCO2 69.0 mmHg (32.0-48.0) H 11/25/20 03:29 POC ABG pO2 132.9 mmHg (83-108) H 11/25/20 03:29 POC ABG HCO3 31.1 11/25/20 03:29 PT/INR, D-dimer D-Dimer 1433.39 ng/mlDDU (0-234) H 11/24/20 05:14 Abnormal lab findings: Abnormal Labs 11/15/20 11/15/20 11/15/20 10:39 10:39 10:39 WBC 14.3 H RBC 5.17 H Lymph % (Auto) 7.8 L Will % (Auto) 7.6 H Lymph # (Auto) 1.1 L Will # (Auto) 1.1 H Baso # (Auto) Seg Neutrophils % 83.3 H Seg Neuts % (Manual) Seg Neutrophils # 11.9 H Seg Neutrophils # Man Lymphocytes # (Manual) D-Dimer ABG pH POC ABG pCO2 POC ABG pO2 ABG Oxyhemoglobin ABG Sodium ABG Potassium ABG Chloride ABG Glucose Sodium 128 L Chloride 96.0 L Carbon Dioxide BUN Creatinine 0.7 L Glucose 238 H POC Glucose Hemoglobin A1c Lactic Acid 4.10 H* Calcium 7.0 L Ferritin Total Bilirubin 1.40 H AST 49 H ALT 70 H Alkaline Phosphatase Lactate Dehydrogenase 663 H C-Reactive Protein 19.80 H Total Protein Albumin 2.9 L Arterial Blood Glucose Arterial Blood Ionized Calcium Ur Specific [place] Coronavirus (PCR) 11/15/20 11/15/20 11/15/20 10:39 10:39 11:20 WBC RBC Lymph % (Auto) Will % (Auto) Lymph # (Auto) Will # (Auto) Baso # (Auto) Seg Neutrophils % Seg Neuts % (Manual) Seg Neutrophils # Seg Neutrophils # Man Lymphocytes # (Manual) D-Dimer > 66238 H ABG pH POC ABG pCO2 29.9 L POC ABG pO2 137.3 H ABG Oxyhemoglobin ABG Sodium 126.5 L ABG Potassium ABG Chloride ABG Glucose 248 H Sodium Chloride Carbon Dioxide BUN Creatinine Glucose POC Glucose Hemoglobin A1c Lactic Acid Calcium Ferritin 672.8 H Total Bilirubin AST ALT Alkaline Phosphatase Lactate Dehydrogenase C-Reactive Protein Total Protein Albumin Arterial Blood Glucose 248 H Arterial Blood Ionized Calcium 4.1 L Ur Specific [place] Coronavirus (PCR) 11/15/20 11/15/20 11/16/20 13:41 23:41 01:45 WBC RBC Lymph % (Auto) Will % (Auto) Lymph # (Auto) Will # (Auto) Baso # (Auto) Seg Neutrophils % Seg Neuts % (Manual) Seg Neutrophils # Seg Neutrophils # Man Lymphocytes # (Manual) D-Dimer ABG pH POC ABG pCO2 POC ABG pO2 ABG Oxyhemoglobin ABG Sodium ABG Potassium ABG Chloride ABG Glucose Sodium Chloride Carbon Dioxide BUN Creatinine Glucose POC Glucose 284 H Hemoglobin A1c Lactic Acid 2.30 H* Calcium Ferritin Total Bilirubin AST ALT Alkaline Phosphatase Lactate Dehydrogenase C-Reactive Protein Total Protein Albumin Arterial Blood Glucose Arterial Blood Ionized Calcium Ur Specific [place] 1.037 H Coronavirus (PCR) 11/16/20 11/16/20 11/16/20 05:29 05:29 05:29 WBC 12.9 H RBC Lymph % (Auto) 4.5 L Will % (Auto) Lymph # (Auto) 0.6 L Will # (Auto) Baso # (Auto) 0.2 H Seg Neutrophils % 89.8 H Seg Neuts % (Manual) Seg Neutrophils # 11.5 H Seg Neutrophils # Man Lymphocytes # (Manual) D-Dimer ABG pH POC ABG pCO2 POC ABG pO2 ABG Oxyhemoglobin ABG Sodium ABG Potassium ABG Chloride ABG Glucose Sodium 131 L Chloride Carbon Dioxide 21 L BUN 23 H Creatinine 0.6 L Glucose 342 H POC Glucose Hemoglobin A1c Lactic Acid 2.60 H* Calcium 7.0 L Ferritin Total Bilirubin AST ALT Alkaline Phosphatase Lactate Dehydrogenase C-Reactive Protein Total Protein Albumin 2.4 L Arterial Blood Glucose Arterial Blood Ionized Calcium Ur Specific [place] Coronavirus (PCR) 11/16/20 11/16/20 11/16/20 05:29 08:11 12:11 WBC RBC Lymph % (Auto) Will % (Auto) Lymph # (Auto) Will # (Auto) Baso # (Auto) Seg Neutrophils % Seg Neuts % (Manual) Seg Neutrophils # Seg Neutrophils # Man Lymphocytes # (Manual) D-Dimer ABG pH POC ABG pCO2 POC ABG pO2 ABG Oxyhemoglobin ABG Sodium ABG Potassium ABG Chloride ABG Glucose Sodium Chloride Carbon Dioxide BUN Creatinine Glucose POC Glucose 329 H 320 H Hemoglobin A1c 11.7 H Lactic Acid Calcium Ferritin Total Bilirubin AST ALT Alkaline Phosphatase Lactate Dehydrogenase C-Reactive Protein Total Protein Albumin Arterial Blood Glucose Arterial Blood Ionized Calcium Ur Specific [place] Coronavirus (PCR) 11/16/20 11/16/20 11/16/20 16:13 21:29 Unknown WBC RBC Lymph % (Auto) Will % (Auto) Lymph # (Auto) Will # (Auto) Baso # (Auto) Seg Neutrophils % Seg Neuts % (Manual) Seg Neutrophils # Seg Neutrophils # Man Lymphocytes # (Manual) D-Dimer ABG pH POC ABG pCO2 POC ABG pO2 ABG Oxyhemoglobin ABG Sodium ABG Potassium ABG Chloride ABG Glucose Sodium Chloride Carbon Dioxide BUN Creatinine Glucose POC Glucose 257 H 376 H Hemoglobin A1c Lactic Acid Calcium Ferritin Total Bilirubin AST ALT Alkaline Phosphatase Lactate Dehydrogenase C-Reactive Protein Total Protein Albumin Arterial Blood Glucose Arterial Blood Ionized Calcium Ur Specific [place] Coronavirus (PCR) Positive A 11/17/20 11/17/20 11/17/20 07:42 12:07 17:25 WBC RBC Lymph % (Auto) Will % (Auto) Lymph # (Auto) Will # (Auto) Baso # (Auto) Seg Neutrophils % Seg Neuts % (Manual) Seg Neutrophils # Seg Neutrophils # Man Lymphocytes # (Manual) D-Dimer ABG pH POC ABG pCO2 POC ABG pO2 ABG Oxyhemoglobin ABG Sodium ABG Potassium ABG Chloride ABG Glucose Sodium Chloride Carbon Dioxide BUN Creatinine Glucose POC Glucose 231 H 380 H 302 H Hemoglobin A1c Lactic Acid Calcium Ferritin Total Bilirubin AST ALT Alkaline Phosphatase Lactate Dehydrogenase C-Reactive Protein Total Protein Albumin Arterial Blood Glucose Arterial Blood Ionized Calcium Ur Specific [place] Coronavirus (PCR) 11/17/20 11/18/20 11/18/20 21:53 04:25 07:45 WBC RBC Lymph % (Auto) Will % (Auto) Lymph # (Auto) Will # (Auto) Baso # (Auto) Seg Neutrophils % Seg Neuts % (Manual) Seg Neutrophils # Seg Neutrophils # Man Lymphocytes # (Manual) D-Dimer ABG pH POC ABG pCO2 POC ABG pO2 ABG Oxyhemoglobin ABG Sodium ABG Potassium ABG Chloride ABG Glucose Sodium 136 L Chloride Carbon Dioxide BUN 24 H Creatinine 0.6 L Glucose 212 H POC Glucose 293 H 216 H Hemoglobin A1c Lactic Acid Calcium 7.4 L Ferritin Total Bilirubin AST 41 H ALT Alkaline Phosphatase 142 H Lactate Dehydrogenase C-Reactive Protein Total Protein Albumin 2.3 L Arterial Blood Glucose Arterial Blood Ionized Calcium Ur Specific [place] Coronavirus (PCR) 11/18/20 11/18/20 11/18/20 12:28 15:58 21:37 WBC RBC Lymph % (Auto) Will % (Auto) Lymph # (Auto) Will # (Auto) Baso # (Auto) Seg Neutrophils % Seg Neuts % (Manual) Seg Neutrophils # Seg Neutrophils # Man Lymphocytes # (Manual) D-Dimer ABG pH POC ABG pCO2 POC ABG pO2 ABG Oxyhemoglobin ABG Sodium ABG Potassium ABG Chloride ABG Glucose Sodium Chloride Carbon Dioxide BUN Creatinine Glucose POC Glucose 165 H 220 H 311 H Hemoglobin A1c Lactic Acid Calcium Ferritin Total Bilirubin AST ALT Alkaline Phosphatase Lactate Dehydrogenase C-Reactive Protein Total Protein Albumin Arterial Blood Glucose Arterial Blood Ionized Calcium Ur Specific [place] Coronavirus (PCR) 11/19/20 11/19/20 11/19/20 05:35 07:40 12:39 WBC RBC Lymph % (Auto) Will % (Auto) Lymph # (Auto) Will # (Auto) Baso # (Auto) Seg Neutrophils % Seg Neuts % (Manual) Seg Neutrophils # Seg Neutrophils # Man Lymphocytes # (Manual) D-Dimer ABG pH POC ABG pCO2 POC ABG pO2 ABG Oxyhemoglobin ABG Sodium ABG Potassium ABG Chloride ABG Glucose Sodium 132 L Chloride Carbon Dioxide BUN 25 H Creatinine 0.5 L Glucose 179 H POC Glucose 149 H 306 H Hemoglobin A1c Lactic Acid Calcium 7.5 L Ferritin Total Bilirubin AST ALT Alkaline Phosphatase 139 H Lactate Dehydrogenase C-Reactive Protein Total Protein Albumin 2.4 L Arterial Blood Glucose Arterial Blood Ionized Calcium Ur Specific [place] Coronavirus (PCR) 11/19/20 11/19/20 11/20/20 16:17 21:25 08:30 WBC RBC Lymph % (Auto) Will % (Auto) Lymph # (Auto) Will # (Auto) Baso # (Auto) Seg Neutrophils % Seg Neuts % (Manual) Seg Neutrophils # Seg Neutrophils # Man Lymphocytes # (Manual) D-Dimer ABG pH POC ABG pCO2 POC ABG pO2 ABG Oxyhemoglobin ABG Sodium ABG Potassium ABG Chloride ABG Glucose Sodium Chloride Carbon Dioxide BUN Creatinine Glucose POC Glucose 364 H 347 H 141 H Hemoglobin A1c Lactic Acid Calcium Ferritin Total Bilirubin AST ALT Alkaline Phosphatase Lactate Dehydrogenase C-Reactive Protein Total Protein Albumin Arterial Blood Glucose Arterial Blood Ionized Calcium Ur Specific [place] Coronavirus (PCR) 11/20/20 11/20/20 11/20/20 08:50 11:32 16:19 WBC RBC Lymph % (Auto) Will % (Auto) Lymph # (Auto) Will # (Auto) Baso # (Auto) Seg Neutrophils % Seg Neuts % (Manual) Seg Neutrophils # Seg Neutrophils # Man Lymphocytes # (Manual) D-Dimer ABG pH POC ABG pCO2 POC ABG pO2 ABG Oxyhemoglobin ABG Sodium ABG Potassium ABG Chloride ABG Glucose Sodium 132 L Chloride 97.6 L Carbon Dioxide BUN 26 H Creatinine 0.5 L Glucose 201 H POC Glucose 296 H 327 H Hemoglobin A1c Lactic Acid Calcium 7.9 L Ferritin Total Bilirubin AST ALT Alkaline Phosphatase 137 H Lactate Dehydrogenase C-Reactive Protein Total Protein Albumin 2.6 L Arterial Blood Glucose Arterial Blood Ionized Calcium Ur Specific [place] Coronavirus (PCR) 11/20/20 11/21/20 11/21/20 22:09 07:59 13:51 WBC RBC Lymph % (Auto) Will % (Auto) Lymph # (Auto) Will # (Auto) Baso # (Auto) Seg Neutrophils % Seg Neuts % (Manual) Seg Neutrophils # Seg Neutrophils # Man Lymphocytes # (Manual) D-Dimer ABG pH POC ABG pCO2 POC ABG pO2 ABG Oxyhemoglobin ABG Sodium ABG Potassium ABG Chloride ABG Glucose Sodium Chloride Carbon Dioxide BUN Creatinine Glucose POC Glucose 311 H 218 H 304 H Hemoglobin A1c Lactic Acid Calcium Ferritin Total Bilirubin AST ALT Alkaline Phosphatase Lactate Dehydrogenase C-Reactive Protein Total Protein Albumin Arterial Blood Glucose Arterial Blood Ionized Calcium Ur Specific [place] Coronavirus (PCR) 11/21/20 11/21/20 11/21/20 16:09 21:34 23:00 WBC RBC Lymph % (Auto) Will % (Auto) Lymph # (Auto) Will # (Auto) Baso # (Auto) Seg Neutrophils % Seg Neuts % (Manual) Seg Neutrophils # Seg Neutrophils # Man Lymphocytes # (Manual) D-Dimer ABG pH 7.206 L POC ABG pCO2 59.3 H POC ABG pO2 76.7 L ABG Oxyhemoglobin ABG Sodium 133.1 L ABG Potassium ABG Chloride ABG Glucose 320 H Sodium Chloride Carbon Dioxide BUN Creatinine Glucose POC Glucose 239 H 279 H Hemoglobin A1c Lactic Acid Calcium Ferritin Total Bilirubin AST ALT Alkaline Phosphatase Lactate Dehydrogenase C-Reactive Protein Total Protein Albumin Arterial Blood Glucose 320 H Arterial Blood Ionized Calcium Ur Specific [place] Coronavirus (PCR) 11/22/20 11/22/20 11/22/20 04:52 04:52 04:52 WBC RBC Lymph % (Auto) Will % (Auto) Lymph # (Auto) Will # (Auto) Baso # (Auto) Seg Neutrophils % Seg Neuts % (Manual) Seg Neutrophils # Seg Neutrophils # Man Lymphocytes # (Manual) D-Dimer 1858.36 H ABG pH POC ABG pCO2 POC ABG pO2 ABG Oxyhemoglobin ABG Sodium ABG Potassium ABG Chloride ABG Glucose Sodium Chloride Carbon Dioxide BUN Creatinine Glucose POC Glucose Hemoglobin A1c Lactic Acid Calcium Ferritin 734.2 H Total Bilirubin AST ALT Alkaline Phosphatase Lactate Dehydrogenase 404 H C-Reactive Protein 2.80 H Total Protein Albumin Arterial Blood Glucose Arterial Blood Ionized Calcium Ur Specific [place] Coronavirus (PCR) 11/22/20 11/22/20 11/22/20 05:12 05:39 11:50 WBC RBC Lymph % (Auto) Will % (Auto) Lymph # (Auto) Will # (Auto) Baso # (Auto) Seg Neutrophils % Seg Neuts % (Manual) Seg Neutrophils # Seg Neutrophils # Man Lymphocytes # (Manual) D-Dimer ABG pH POC ABG pCO2 POC ABG pO2 51.0 L ABG Oxyhemoglobin ABG Sodium 131.2 L ABG Potassium 4.6 H ABG Chloride ABG Glucose 317 H Sodium Chloride Carbon Dioxide BUN Creatinine Glucose POC Glucose 340 H 417 H Hemoglobin A1c Lactic Acid Calcium Ferritin Total Bilirubin AST ALT Alkaline Phosphatase Lactate Dehydrogenase C-Reactive Protein Total Protein Albumin Arterial Blood Glucose 317 H Arterial Blood Ionized Calcium 4.4 L Ur Specific [place] Coronavirus (PCR) 11/22/20 11/22/20 11/22/20 12:22 12:22 17:10 WBC 14.4 H RBC Lymph % (Auto) Will % (Auto) Lymph # (Auto) Will # (Auto) Baso # (Auto) Seg Neutrophils % Seg Neuts % (Manual) 98.0 H Seg Neutrophils # Seg Neutrophils # Man 14.1 H Lymphocytes # (Manual) 0.0 L D-Dimer ABG pH POC ABG pCO2 POC ABG pO2 ABG Oxyhemoglobin ABG Sodium ABG Potassium ABG Chloride ABG Glucose Sodium 132 L Chloride Carbon Dioxide BUN 36 H Creatinine 0.6 L Glucose 219 H POC Glucose 157 H Hemoglobin A1c Lactic Acid Calcium 7.2 L Ferritin Total Bilirubin AST ALT Alkaline Phosphatase Lactate Dehydrogenase C-Reactive Protein Total Protein Albumin Arterial Blood Glucose Arterial Blood Ionized Calcium Ur Specific [place] Coronavirus (PCR) 11/22/20 11/22/20 11/22/20 18:33 21:44 23:47 WBC RBC Lymph % (Auto) Will % (Auto) Lymph # (Auto) Will # (Auto) Baso # (Auto) Seg Neutrophils % Seg Neuts % (Manual) Seg Neutrophils # Seg Neutrophils # Man Lymphocytes # (Manual) D-Dimer ABG pH POC ABG pCO2 POC ABG pO2 60.8 L ABG Oxyhemoglobin 88.1 L ABG Sodium 135.1 L ABG Potassium ABG Chloride ABG Glucose 141 H Sodium Chloride Carbon Dioxide BUN Creatinine Glucose POC Glucose 117 H 123 H Hemoglobin A1c Lactic Acid Calcium Ferritin Total Bilirubin AST ALT Alkaline Phosphatase Lactate Dehydrogenase C-Reactive Protein Total Protein Albumin Arterial Blood Glucose 141 H Arterial Blood Ionized Calcium Ur Specific [place] Coronavirus (PCR) 11/23/20 11/23/20 11/23/20 04:00 04:00 05:23 WBC 14.4 H RBC Lymph % (Auto) Will % (Auto) Lymph # (Auto) Will # (Auto) Baso # (Auto) Seg Neutrophils % Seg Neuts % (Manual) Seg Neutrophils # Seg Neutrophils # Man Lymphocytes # (Manual) D-Dimer ABG pH POC ABG pCO2 POC ABG pO2 ABG Oxyhemoglobin ABG Sodium ABG Potassium ABG Chloride ABG Glucose Sodium 136 L Chloride Carbon Dioxide BUN 33 H Creatinine 0.6 L Glucose 115 H POC Glucose 173 H Hemoglobin A1c Lactic Acid Calcium 7.1 L Ferritin Total Bilirubin AST 64 H ALT 75 H Alkaline Phosphatase Lactate Dehydrogenase C-Reactive Protein Total Protein 5.9 L D Albumin 2.4 L Arterial Blood Glucose Arterial Blood Ionized Calcium Ur Specific [place] Coronavirus (PCR) 11/23/20 11/23/20 11/23/20 05:40 11:27 17:10 WBC RBC Lymph % (Auto) Will % (Auto) Lymph # (Auto) Will # (Auto) Baso # (Auto) Seg Neutrophils % Seg Neuts % (Manual) Seg Neutrophils # Seg Neutrophils # Man Lymphocytes # (Manual) D-Dimer ABG pH POC ABG pCO2 POC ABG pO2 56.5 L ABG Oxyhemoglobin ABG Sodium ABG Potassium ABG Chloride 109.0 H ABG Glucose 114 H Sodium Chloride Carbon Dioxide BUN Creatinine Glucose POC Glucose 114 H 136 H Hemoglobin A1c Lactic Acid Calcium Ferritin Total Bilirubin AST ALT Alkaline Phosphatase Lactate Dehydrogenase C-Reactive Protein Total Protein Albumin Arterial Blood Glucose 114 H Arterial Blood Ionized Calcium 4.5 L Ur Specific [place] Coronavirus (PCR) 11/24/20 11/24/20 11/24/20 05:14 05:14 05:14 WBC RBC Lymph % (Auto) Will % (Auto) Lymph # (Auto) Will # (Auto) Baso # (Auto) Seg Neutrophils % Seg Neuts % (Manual) Seg Neutrophils # Seg Neutrophils # Man Lymphocytes # (Manual) D-Dimer 1433.39 H ABG pH POC ABG pCO2 POC ABG pO2 ABG Oxyhemoglobin ABG Sodium ABG Potassium ABG Chloride ABG Glucose Sodium Chloride Carbon Dioxide BUN Creatinine Glucose POC Glucose Hemoglobin A1c Lactic Acid Calcium Ferritin 997.5 H Total Bilirubin AST ALT Alkaline Phosphatase Lactate Dehydrogenase 463 H C-Reactive Protein Total Protein Albumin Arterial Blood Glucose Arterial Blood Ionized Calcium Ur Specific [place] Coronavirus (PCR) 11/24/20 11/24/20 11/24/20 05:31 05:36 12:05 WBC RBC Lymph % (Auto) Will % (Auto) Lymph # (Auto) Will # (Auto) Baso # (Auto) Seg Neutrophils % Seg Neuts % (Manual) Seg Neutrophils # Seg Neutrophils # Man Lymphocytes # (Manual) D-Dimer ABG pH POC ABG pCO2 POC ABG pO2 57.2 L ABG Oxyhemoglobin ABG Sodium ABG Potassium ABG Chloride ABG Glucose 180 H Sodium Chloride Carbon Dioxide BUN Creatinine Glucose POC Glucose 199 H 143 H Hemoglobin A1c Lactic Acid Calcium Ferritin Total Bilirubin AST ALT Alkaline Phosphatase Lactate Dehydrogenase C-Reactive Protein Total Protein Albumin Arterial Blood Glucose 180 H Arterial Blood Ionized Calcium 4.5 L Ur Specific [place] Coronavirus (PCR) 11/24/20 11/24/20 11/24/20 12:14 17:47 23:47 WBC RBC Lymph % (Auto) Will % (Auto) Lymph # (Auto) Will # (Auto) Baso # (Auto) Seg Neutrophils % Seg Neuts % (Manual) Seg Neutrophils # Seg Neutrophils # Man Lymphocytes # (Manual) D-Dimer ABG pH 7.261 L POC ABG pCO2 59.7 H POC ABG pO2 75.7 L ABG Oxyhemoglobin 92.5 L ABG Sodium ABG Potassium ABG Chloride 108.0 H ABG Glucose 150 H Sodium Chloride Carbon Dioxide BUN Creatinine Glucose POC Glucose 223 H 179 H Hemoglobin A1c Lactic Acid Calcium Ferritin Total Bilirubin AST ALT Alkaline Phosphatase Lactate Dehydrogenase C-Reactive Protein Total Protein Albumin Arterial Blood Glucose 150 H Arterial Blood Ionized Calcium Ur Specific [place] Coronavirus (PCR) 11/25/20 11/25/20 11/25/20 03:29 05:07 05:15 WBC 13.9 H RBC Lymph % (Auto) Will % (Auto) Lymph # (Auto) Will # (Auto) Baso # (Auto) Seg Neutrophils % Seg Neuts % (Manual) Seg Neutrophils # Seg Neutrophils # Man Lymphocytes # (Manual) D-Dimer ABG pH 7.272 L POC ABG pCO2 69.0 H POC ABG pO2 132.9 H ABG Oxyhemoglobin ABG Sodium ABG Potassium ABG Chloride ABG Glucose 174 H Sodium Chloride Carbon Dioxide BUN Creatinine Glucose POC Glucose 168 H Hemoglobin A1c Lactic Acid Calcium Ferritin Total Bilirubin AST ALT Alkaline Phosphatase Lactate Dehydrogenase C-Reactive Protein Total Protein Albumin Arterial Blood Glucose 174 H Arterial Blood Ionized Calcium Ur Specific [place] Coronavirus (PCR) 11/25/20 05:15 WBC RBC Lymph % (Auto) Will % (Auto) Lymph # (Auto) Will # (Auto) Baso # (Auto) Seg Neutrophils % Seg Neuts % (Manual) Seg Neutrophils # Seg Neutrophils # Man Lymphocytes # (Manual) D-Dimer ABG pH POC ABG pCO2 POC ABG pO2 ABG Oxyhemoglobin ABG Sodium ABG Potassium ABG Chloride ABG Glucose Sodium Chloride Carbon Dioxide BUN 29 H Creatinine 0.5 L Glucose 161 H POC Glucose Hemoglobin A1c Lactic Acid Calcium 7.8 L Ferritin Total Bilirubin AST 89 H ALT 129 H Alkaline Phosphatase Lactate Dehydrogenase C-Reactive Protein Total Protein 5.8 L Albumin 2.5 L Arterial Blood Glucose Arterial Blood Ionized Calcium Ur Specific [place] Coronavirus (PCR)
--- NOTE | 2020-11-25 12:31 | Progress Note ---
Assessment and Plan Cultures: SARS CoV2 PCR: positive Blood culture: No growth 11/21/2019 tracheal aspirate culture: no growth so far A/P: 59-year-old male: #Bilateral pneumonia: secondary to COVID-19. Admission labs showed leukocytosis, D-dimer greater than 10,000, ferritin 672, CRP 19.8, LDH 663, creatinine 0.6, procalcitonin 0.51 #Acute hypoxic respiratory failure: Failed BiPAP. Remains on the vent. #Elevated d-dimer: DVT scan negative. Unable to get CTA Chest due to patients unstable clinical status #Transaminitis: secondary to COVID-19. Recs: -continue steroids per ICU team: on Solumedrol -completed 5 days of abx, remdesivir -Continue prophylactic anticoagulation based on d-dimer per hospital protocol -trend ferritin, LDH, d-dimer, CRP every 2-3 days for risk stratification and to assess disease progression -guarded prognosis Dayday Driscoll MD, FACP [facility] ([facility] O: [phone] F: [phone] Subjective Date of service: 11/25/20 Principal diagnosis: COVID-19 Interval history: No fever. Remains on the vent, sedated, paralyzed. Objective - Exam Narrative Exam: Physical Exam (reviewed in chart to minimize risk of transmission) Constitutional: deferred Head, Ears, Nose: deferred Eyes: deferred Neck: deferred Oral: deferred Cardiovascular: deferred Respiratory: deferred GI: deferred Musculoskeletal: deferred Skin: deferred Hem/Lymphatic: deferred Psych: deferred Neurological: deferred - Constitutional Vitals: Vital Signs Temp Pulse Resp BP Pulse Ox 98.4 F 66 26 H 113/60 100 11/25/20 08:00 11/25/20 11:00 11/25/20 11:00 11/25/20 11:00 11/25/20 11:00 Temperature -Last 24 Hours Temperature 98.4 F Temperature 98.7 F Temperature 98.8 F Temperature 98.4 F Temperature 97.9 F - Labs CBC & Chem 7: 11/25/20 05:15 11/25/20 05:15 Labs: Abnormal lab results 11/24/20 11/24/20 11/24/20 Range/Units 12:14 17:47 23:47 WBC (4.5-11.0) K/mm3 ABG pH 7.261 L (7.320-7.450) POC ABG pCO2 59.7 H (32.0-48.0) mmHg POC ABG pO2 75.7 L (83-108) mmHg ABG Oxyhemoglobin 92.5 L (94-98) ABG Chloride 108.0 H (98-107) mmol/L ABG Glucose 150 H (65-95) mg/dL BUN (9-20) mg/dL Creatinine (0.8-1.3) mg/dL Glucose (75-100) mg/dL POC Glucose 223 H 179 H (70-105) mg/dL Calcium (8.4-10.2) mg/dL AST (5-40) units/L ALT (7-56) units/L Total Protein (6.3-8.2) g/dL Albumin (3.9-5) g/dL Arterial Blood Glucose 150 H (65-95) mg/dL 11/25/20 11/25/20 11/25/20 Range/Units 03:29 05:07 05:15 WBC 13.9 H (4.5-11.0) K/mm3 ABG pH 7.272 L (7.320-7.450) POC ABG pCO2 69.0 H (32.0-48.0) mmHg POC ABG pO2 132.9 H (83-108) mmHg ABG Oxyhemoglobin (94-98) ABG Chloride (98-107) mmol/L ABG Glucose 174 H (65-95) mg/dL BUN (9-20) mg/dL Creatinine (0.8-1.3) mg/dL Glucose (75-100) mg/dL POC Glucose 168 H (70-105) mg/dL Calcium (8.4-10.2) mg/dL AST (5-40) units/L ALT (7-56) units/L Total Protein (6.3-8.2) g/dL Albumin (3.9-5) g/dL Arterial Blood Glucose 174 H (65-95) mg/dL 11/25/20 Range/Units 05:15 WBC (4.5-11.0) K/mm3 ABG pH (7.320-7.450) POC ABG pCO2 (32.0-48.0) mmHg POC ABG pO2 (83-108) mmHg ABG Oxyhemoglobin (94-98) ABG Chloride (98-107) mmol/L ABG Glucose (65-95) mg/dL BUN 29 H (9-20) mg/dL Creatinine 0.5 L (0.8-1.3) mg/dL Glucose 161 H (75-100) mg/dL POC Glucose (70-105) mg/dL Calcium 7.8 L (8.4-10.2) mg/dL AST 89 H (5-40) units/L ALT 129 H (7-56) units/L Total Protein 5.8 L (6.3-8.2) g/dL Albumin 2.5 L (3.9-5) g/dL Arterial Blood Glucose (65-95) mg/dL
[2020-11-25] MEDS: MIDAZOLAM 100 MG in SODIUM CHLORIDE 0.9% 80 ML IV SCH (13:45)
[2020-11-25 13:51] LABS: Total Cells Counted 100
--- NOTE | 2020-11-25 13:52 | Progress Note ---
Assessment and Plan Assessment and plan: 59-year-old female presents with shortness of breath cough fever weakness. "1 to 2 days. Patient has severe hypoxia per EMS. Her saturations are in the low 80s. With all oxygen and nonrebreather came down to low 90s. Patient denies any past medical history. Exposure to coronavirus present. Does not have a primary care physician. 2/1: Patient continues on BiPAP throughout the night. Labs are remarkable for hypoxia with improving renal function but lactic acidosis without fever. CTA has been ordered to rule out pulmonary embolism. I agree with increasing enoxaparin to twice daily full dose for empiric treatment of pulmonary embolism. Will obtain ID consultation on further evaluation for possible underlying pneumonia versus COVID-19. We will also obtain echocardiogram for evaluation. Will discontinue fluids at this time. 2/2; Continue supportive care, Patient remains with very guarded prognosis, remains on BiPAP, continues on Remdesivir, and steroids. Will continue antic oagulation, unable to get CTA Chest due to patients unstable clinical status. Will adjust insulin for better blood glucose 2/3: Continues on BIPAP, no clear improvement at this time. Will continue st eroids therapy Remdesivir and also Full anticoagulation at this time. Will update family. Discussed with Basin Cleaner. 2/4: Taking a break from the BiPAP on high flow and nonrebreather 100% with satu ration of 90% becomes hypoxic with any movement. Basin Cleaner input noted will get a dose of Lasix today. Will await a discussion with ID for possibly increasing steroid. I updated Patient's Cousin, Tayla Esquivel who is the emergency military personnel specialist. Blood sugar remains fluctuating secondary to steriods, Encouraged Prone positioning. Noted with mild hyponatremia we will continue to monitor and manage 2/5: Continue supportive care wean oxygen as tolerated prognosis remains guarded. Encouraged to progress as tolerated. Awaiting labs today. Discussed with nursing staff and patient at bedside. 2/6: Discontinued Dexamethasone as Solumedrol started secondary to increased oxygen demand. Will give additional insulin for better control. Continue oxygen support patient still on high flow. Prognosis still guarded 2/7: Patient was intubated and placed on mechanical ventilation. Continue current medication. Will check a.m. labs today. Noted still with hypotension. Doubt septic shock at this time as patient has no new fever. Will adjust insulin for better blood sugar control. 11/23: Patient admitted with COVID-19 despite all efforts patient remains severely hypoxic and now is intubated. Basin Cleaner input noted. Blood pressure marginal at this time. Very poor prognosis. Continue Solu-Medrol. 11/24. Patient remains very hypoxic. Blood pressure borderline. Plan for initiation of paralytic agents as per public health nurse. Patient may need to be transferred if no improvement. 11/25. On paralytics. Continue proning PRN. Problems (1) Acute respiratory failure with hypoxia 11/17 COVID 19 pneumonia Patient remains fully dependent on mechanical ventilatory support Basin Cleaner on board Plan for initiation of paralytics as per critical care team On solumedrol q8 Prognosis is poor The high probability of a clinically significant, sudden or life threatening deterioration of the [pulmonary] system(s) required my full and direct attention, intervention and personal management. The aggregate critical care time was [35] minutes. This time is in addition to time spent performing reported procedures but includes the following: [X] Data Review and interpretation [X] Patient assessment and monitoring of vital signs [X] Documentation [X] Medication orders and management History Interval history: Remains fully dependent on ventilator On paralytics Hospitalist Physical - Physical exam Narrative exam: VITAL SIGNS: Reviewed. GENERAL: Sedated and intubated HEAD: No signs of head trauma. EYES: Pupils are equal. Extraocular motions intact. MOUTH: Oropharynx is normal. NECK: No adenopathy, no JVD. CHEST: Chest with diminished breath sounds bilaterally. No wheezes, rales, or rhonchi. CARDIAC: normal S1 and S2, without murmurs, gallops, or rubs. ABDOMEN: Soft, non tender and non distended. No rebound or guarding, and no masses palpated. Bowel Sounds normal. MUSCULOSKELETAL: No edema NEUROLOGIC EXAM: Sedated SKIN: No obvious lesions - Constitutional Vitals: Temp Pulse Resp BP Pulse Ox 98.6 F 70 16 107/56 100 11/25/20 12:00 11/25/20 13:45 11/25/20 13:45 11/25/20 13:45 11/25/20 13:45 HEART Score - HEART Score Troponin: Troponin T < 0.010 ng/mL (0.00-0.029) 11/22/20 Unknown Results - Labs CBC & Chem 7: 11/25/20 05:15 11/25/20 05:15 Labs: Laboratory Last Values WBC 13.9 K/mm3 (4.5-11.0) H 11/25/20 05:15 RBC 4.74 M/mm3 (3.65-5.03) 11/25/20 05:15 Hgb 13.7 gm/dl (11.8-15.2) 11/25/20 05:15 Hct 42.9 % (35.5-45.6) 11/25/20 05:15 MCV 90 fl (84-94) 11/25/20 05:15 MCH 29 pg (28-32) 11/25/20 05:15 MCHC 32 % (32-34) 11/25/20 05:15 RDW 13.7 % (13.2-15.2) 11/25/20 05:15 Plt Count 290 K/mm3 (140-440) 11/25/20 05:15 Lymph % (Auto) 4.5 % (13.4-35.0) L 11/16/20 05:29 [place] % (Auto) 4.3 % (0.0-7.3) 11/16/20 05:29 Eos % (Auto) 0.0 % (0.0-4.3) 11/16/20 05:29 Baso % (Auto) 1.4 % (0.0-1.8) 11/16/20 05:29 Lymph # (Auto) 0.6 K/mm3 (1.2-5.4) L 11/16/20 05:29 [place] # (Auto) 0.6 K/mm3 (0.0-0.8) 11/16/20 05:29 Eos # (Auto) 0.0 K/mm3 (0.0-0.4) 11/16/20 05:29 Baso # (Auto) 0.2 K/mm3 (0.0-0.1) H 11/16/20 05:29 Add Manual Diff Complete 11/22/20 12:22 Total Counted 100 11/22/20 12:22 Seg Neutrophils % Space Operations Officer 11/25/20 05:15 Seg Neuts % (Manual) 98.0 % (40.0-70.0) H 11/22/20 12:22 Monocytes % (Manual) 2.0 % (0.0-7.3) 11/22/20 12:22 Nucleated RBC % Not Reportable 11/22/20 12:22 Seg Neutrophils # 11.5 K/mm3 (1.8-7.7) H 11/16/20 05:29 Seg Neutrophils # Man 14.1 K/mm3 (1.8-7.7) H 11/22/20 12:22 Band Neutrophils # 0.0 K/mm3 11/22/20 12:22 Lymphocytes # (Manual) 0.0 K/mm3 (1.2-5.4) L 11/22/20 12:22 Abs React Lymphs (Man) 0.0 K/mm3 11/22/20 12:22 Monocytes # (Manual) 0.3 K/mm3 (0.0-0.8) 11/22/20 12:22 Eosinophils # (Manual) 0.0 K/mm3 (0.0-0.4) 11/22/20 12:22 Basophils # (Manual) 0.0 K/mm3 (0.0-0.1) 11/22/20 12:22 Metamyelocytes # 0.0 K/mm3 11/22/20 12:22 Myelocytes # 0.0 K/mm3 11/22/20 12:22 Promyelocytes # 0.0 K/mm3 11/22/20 12:22 Blast Cells # 0.0 K/mm3 11/22/20 12:22 WBC Morphology Not Reportable 11/22/20 12:22 WBC Morphology TNR 11/22/20 12:22 Hypersegmented Neuts Not Reportable 11/22/20 12:22 Hyposegmented Neuts Not Reportable 11/22/20 12:22 Hypogranular Neuts Not Reportable 11/22/20 12:22 Smudge Cells Not Reportable 11/22/20 12:22 Toxic Granulation Not Reportable 11/22/20 12:22 Toxic Vacuolation Not Reportable 11/22/20 12:22 Dohle Bodies Not Reportable 11/22/20 12:22 Pelger-Huet Anomaly Not Reportable 11/22/20 12:22 Tony Rods Not Reportable 11/22/20 12:22 Platelet Estimate Consistent w auto 11/22/20 12:22 Clumped Platelets Not Reportable 11/22/20 12:22 Plt Clumps, EDTA Not Reportable 11/22/20 12:22 Large Platelets Not Reportable 11/22/20 12:22 Giant Platelets Not Reportable 11/22/20 12:22 Platelet Satelliting Not Reportable 11/22/20 12:22 Plt Morphology Comment Not Reportable 11/22/20 12:22 RBC Morphology Normal 11/22/20 12:22 Dimorphic RBCs Not Reportable 11/22/20 12:22 Polychromasia Not Reportable 11/22/20 12:22 Hypochromasia Not Reportable 11/22/20 12:22 Poikilocytosis Not Reportable 11/22/20 12:22 Anisocytosis Not Reportable 11/22/20 12:22 Microcytosis Not Reportable 11/22/20 12:22 Macrocytosis Not Reportable 11/22/20 12:22 Spherocytes Not Reportable 11/22/20 12:22 Pappenheimer Bodies Not Reportable 11/22/20 12:22 Sickle Cells Not Reportable 11/22/20 12:22 Target Cells Not Reportable 11/22/20 12:22 Tear Drop Cells Not Reportable 11/22/20 12:22 Ovalocytes Not Reportable 11/22/20 12:22 Helmet Cells Not Reportable 11/22/20 12:22 [place] Bodies Not Reportable 11/22/20 12:22 Tarkio Rings Not Reportable 11/22/20 12:22 Henrry Cells Not Reportable 11/22/20 12:22 Bite Cells Not Reportable 11/22/20 12:22 Crenated Cell Not Reportable 11/22/20 12:22 Elliptocytes Not Reportable 11/22/20 12:22 Acanthocytes (Spur) Not Reportable 11/22/20 12:22 Rouleaux Not Reportable 11/22/20 12:22 Hemoglobin C Crystals Not Reportable 11/22/20 12:22 Schistocytes Not Reportable 11/22/20 12:22 Malaria parasites Not Reportable 11/22/20 12:22 Yovani Bodies Not Reportable 11/22/20 12:22 Hem Pathologist Commnt No 11/22/20 12:22 D-Dimer 1433.39 ng/mlDDU (0-234) H 11/24/20 05:14 ABG pH 7.272 (7.320-7.450) L 11/25/20 03:29 POC ABG pCO2 69.0 mmHg (32.0-48.0) H 11/25/20 03:29 POC ABG pO2 132.9 mmHg (83-108) H 11/25/20 03:29 POC ABG HCO3 31.1 11/25/20 03:29 POC ABG Base Excess 2.2 11/25/20 03:29 ABG Hemoglobin 14.1 (12.0-17.5) 11/25/20 03:29 ABG Oxyhemoglobin 97.5 (94-98) 11/25/20 03:29 ABG Methemoglobin 0.3 (0.0-1.5) 11/25/20 03:29 ABG Sodium 140.5 mmol/L (136.0-145.0) 11/25/20 03:29 ABG Potassium 4.5 mmol/L (3.40-4.50) 11/25/20 03:29 ABG Chloride 105.0 mmol/L (98-107) 11/25/20 03:29 ABG Glucose 174 mg/dL (65-95) H 11/25/20 03:29 Carboxyhemoglobin 0.7 (0.5-1.5) 11/25/20 03:29 FiO2 100 11/25/20 03:29 Sodium 141 mmol/L (137-145) 11/25/20 05:15 Potassium 4.8 mmol/L (3.6-5.0) 11/25/20 05:15 Chloride 105.0 mmol/L (98-107) 11/25/20 05:15 Carbon Dioxide 30 mmol/L (22-30) 11/25/20 05:15 Anion Gap 11 mmol/L 11/25/20 05:15 BUN 29 mg/dL (9-20) H 11/25/20 05:15 Creatinine 0.5 mg/dL (0.8-1.3) L 11/25/20 05:15 Estimated GFR > 60 ml/min 11/25/20 05:15 BUN/Creatinine Ratio 58 % 11/25/20 05:15 Glucose 161 mg/dL (75-100) H 11/25/20 05:15 POC Glucose 168 mg/dL (70-105) H 11/25/20 05:07 Hemoglobin A1c 11.7 % (4-6) H 11/16/20 05:29 Lactic Acid 2.60 mmol/L (0.7-2.0) H* 11/16/20 05:29 Calcium 7.8 mg/dL (8.4-10.2) L 11/25/20 05:15 Ferritin 997.5 ng/mL (30.0-300.0) H 11/24/20 05:14 Total Bilirubin 0.50 mg/dL (0.1-1.2) 11/25/20 05:15 AST 89 units/L (5-40) H 11/25/20 05:15 ALT 129 units/L (7-56) H 11/25/20 05:15 Alkaline Phosphatase 129 units/L (35-129) 11/25/20 05:15 Lactate Dehydrogenase 463 units/L (91-180) H 11/24/20 05:14 Troponin T < 0.010 ng/mL (0.00-0.029) 11/22/20 Unknown C-Reactive Protein 1.10 mg/dL (0.00-1.30) 11/24/20 05:14 NT-Pro-B Natriuret Pep 107.2 pg/mL (0-900) 11/17/20 10:21 Total Protein 5.8 g/dL (6.3-8.2) L 11/25/20 05:15 Albumin 2.5 g/dL (3.9-5) L 11/25/20 05:15 Albumin/Globulin Ratio 0.8 % 11/25/20 05:15 Procalcitonin 0.51 ng/mL (<0.15) 11/15/20 10:39 Arterial Blood Glucose 174 mg/dL (65-95) H 11/25/20 03:29 Arterial Blood Ionized Calcium 4.7 mg/dL (4.6-5.3) 11/25/20 03:29 Urine Color [place] (Yellow) 11/16/20 01:45 Urine Turbidity Slightly-cloudy (Clear) 11/16/20 01:45 Urine pH 6.0 (5.0-7.0) 11/16/20 01:45 Ur Specific [place] 1.037 (1.003-1.030) H 11/16/20 01:45 Urine Protein 30 mg/dl mg/dL (Negative) 11/16/20 01:45 Urine Glucose (UA) >=500 mg/dL (Negative) 11/16/20 01:45 Urine Ketones 20 mg/dL (Negative) 11/16/20 01:45 Urine Blood Neg (Negative) 11/16/20 01:45 Urine Nitrite Neg (Negative) 11/16/20 01:45 Urine Bilirubin Neg (Negative) 11/16/20 01:45 Urine Urobilinogen 2.0 mg/dL (<2.0) 11/16/20 01:45 Ur Leukocyte Esterase Neg (Negative) 11/16/20 01:45 Urine WBC (Auto) 2.0 /HPF (0.0-6.0) 11/16/20 01:45 Urine RBC (Auto) 1.0 /HPF (0.0-6.0) 11/16/20 01:45 Urine Bacteria (Auto) 1+ /HPF (Negative) 11/16/20 01:45 Urine Mucus 3+ /HPF 11/16/20 01:45 Coronavirus (PCR) Positive (Negative) A 11/16/20 Unknown - Diagnostic Impressions Diagnostic Impressions: Echocardiogram 11/16/20 10:34 Transthoracic Echocardiogram Indication: Shortness of breath-COVID BP: 108/77 HR: 92 Conclusions *Global left ventricular systolic function is normal. *The estimated ejection fraction is 60-65%. *Mild to moderate concentric left ventricular hypertrophy is observed. *There is trace of mitral regurgitation. *There is mild to moderate tricuspid regurgitation. *There is evidence of mild pulmonary hypertension. *The right ventricular systolic pressure is calculated at 31 mmHg. Findings Left Ventricle: The left ventricular chamber size is normal. Mild to moderate concentric left ventricular hypertrophy is observed. Global left ventricular systolic function is normal. The estimated ejection fraction is 60-65%. Left Atrium: The left atrial chamber size is normal. Right Ventricle: The right ventricular cavity size is normal. The right ventricular global systolic function is normal. Right Atrium: The right atrial cavity size is normal. Aortic Valve: The aortic valve is trileaflet. There is no evidence of aortic regurgitation. There is no evidence of aortic stenosis. Mitral Valve: The mitral valve leaflets appear normal. There is trace of mitral regurgitation. There is no evidence of mitral stenosis. Tricuspid Valve: The tricuspid valve leaflets are normal. There is mild to moderate tricuspid regurgitation. The right ventricular systolic pressure is calculated at 31 mmHg. There is evidence of mild pulmonary hypertension. Pulmonic Valve: There is trace pulmonic regurgitation. Pericardium: There is no pericardial effusion. Aorta: There is no dilatation of the ascending aorta. There is no dilatation of the aortic root. Venous: The inferior vena cava appears normal in size. Measurements Chambers 2D Name Value Normal Range IVSd (2D) 0.81 cm (0.6 - 1.1) LVPWd (2D) 0.79 cm (0.6 - 1.1) LVIDd (2D) 4.22 cm (3.7 - 5.6) LVIDs (2D) 3.1 cm (2 - 3.8) LV FS (2D) 26.71 % - EF Teichholz (2D) 52.55 % - Ao root diameter (2D) 3.34 cm (2 - 3.7) Volumes/Mass Name Value Normal Range LA ESV SP 4CH (A/L) 10.87 ml - LA ESV SP 2CH (A/L) 18.74 ml - LA ESV BP (A/L) 16.38 ml - LA ESV BP (A/L) index 8.62 ml/m2 - LA ESV SP 4CH (MOD) 10.32 ml - LA ESV SP 2CH (MOD) 17.66 ml - LA ESV BP (MOD) 15.12 ml - LA ESV BP (MOD) index 7.96 ml/m2 - Diastolic/Systolic Function Name Value Normal Range MV E-wave Vmax 0.76 m/sec - MV deceleration time 133.63 msec - MV A-wave Vmax 1.1 m/sec - MV E:A ratio 0.69 ratio - Aortic Valve Name Value Normal Range AV Vmax 1.44 m/sec - AV VTI 22.94 cm - AV peak gradient 8.33 mmHg - AV mean gradient 4.73 mmHg - LVOT diameter 2.2 cm - LVOT Vmax 1.04 m/sec - LVOT VTI 18.88 cm - LVOT peak gradient 4.34 mmHg - LVOT mean gradient 2.31 mmHg - SV LVOT 72.05 ml - EVANGELISTA (continuity Vmax) 2.75 cm2 - EVANGELISTA (continuity VTI) 3.14 cm2 - Tricuspid Valve Name Value Normal Range TR Vmax 2.64 m/sec - TR peak gradient 28 mmHg - RAP 3 mmHg - RVSP 31 mmHg - Gupta/IV: Voiding Method Indwelling Catheter IV Catheter Type [Left Peripheral IV Antecubital] Active Medications - Current Medications Current Medications: Generic Name Dose Route Start Last Admin Trade Name Freq PRN Reason Stop Dose Admin Acetaminophen 650 mg 11/15/20 23:55 11/18/20 22:19 Acetaminophen 325 Mg Tab PO 650 mg Q4H PRN Administration Pain MILD(1-3)/Fever >100.5/BUTTS Lipase/Protease/Amylase 1 each 11/23/20 11:53 Lipase 10,500/Protease 25,000/Amylase 43,750 (Units) Dr Cap FEEDTUBE PRN PRN For Clogged Feeding Tube Enoxaparin Sodium 80 mg 11/16/20 10:00 11/25/20 10:08 Enoxaparin 80 Mg/0.8 Ml Inj SUB-Q 80 mg Q12HR RAEANN Administration Famotidine 20 mg 11/22/20 22:00 11/25/20 10:08 Famotidine 20 Mg/2 Ml Inj IV 20 mg BID RAEANN Administration Fentanyl 50 mcg 11/21/20 21:53 Fentanyl 100 Mcg/2 Ml Inj IV Q10MIN PRN ANALGESIA Hydrophilic Ointment 1 applic 11/21/20 21:53 Lip Therapy Vaseline TP Q2HR PRN Dry Lips Fentanyl Citrate 2,000 mcg in 100 mls @ 3.625 mls/hr 11/21/20 22:00 11/25/20 13:44 Fentanyl Drip Premix IV 4 mcg/kg/hr TITR RAEANN 14.5 mls/hr Administration Protocol 1 MCG/KG/HR Midazolam HCl 100 mg/ Sodium 100 mls @ 2 mls/hr 11/21/20 22:00 11/25/20 13:45 Chloride IV 5 mg/hr TITR RAEANN 5 mls/hr Administration Protocol 2 MG/HR Norepinephrine 4 mg in 250 mls @ 7.5 mls/hr 11/22/20 17:00 Levophed Drip 4 Mg/Ns 250 Ml IV TITR RAEANN Protocol 2 MCG/MIN Cisatracurium Besylate 20 mg/ 200 mls @ 21.75 mls/hr 11/24/20 11:00 11/25/20 08:05 Sodium Chloride IV 02/11/21 10:59 0.5 mcg/kg/min TITR RAEANN 21.75 mls/hr Administration Protocol 0.5 MCG/KG/MIN Insulin Glargine 30 units 11/21/20 22:00 11/24/20 22:10 Insulin Glargine 100 Units/Ml SUB-Q 30 units QHS RAEANN Administration Insulin Human Lispro 0 unit 11/22/20 06:00 11/25/20 12:25 Insulin Lispro 100 Unit/Ml SUB-Q 4 unit Q6HR COUNT INCLUDES THE [facility] Administration Protocol Methylprednisolone Sodium Succinate 60 mg 11/20/20 12:00 11/25/20 12:25 Methylprednisolone Sod Succinate 125 Mg/2 Ml Inj IV 60 mg Q6HR RAEANN Administration Metoclopramide HCl 10 mg 11/15/20 23:55 Metoclopramide 10 Mg/2 Ml Inj IV Q6H PRN Nausea And Vomiting Midazolam HCl 2 mg 11/21/20 21:53 Midazolam 2 Mg/2 Ml Inj IV Q10MIN PRN Sedation Multi-Ingred Cream/Lotion/Oil/Oint 1 applic 11/21/20 21:53 Mineral Oil/Petrolatum, White Ophth Oint 3.5 Gm OU Q4HR PRN Dry Eye(s) Multi-Ingred Cream/Lotion/Oil/Oint 1 applic 11/24/20 11:00 11/25/20 10:08 Mineral Oil/Petrolatum, White Ophth Oint 3.5 Gm OU 1 applic Q6H RAEANN Administration Ondansetron HCl 4 mg 11/15/20 23:55 Ondansetron 4 Mg/2 Ml Inj IV Q8H PRN Nausea And Vomiting Simple Syrup 15 ml 11/23/20 11:53 Simple Syrup 15 Ml FEEDTUBE PRN PRN Hypoglycemia Simple Syrup 30 ml 11/23/20 11:53 Simple Syrup 15 Ml FEEDTUBE PRN PRN Hypoglycemia Sodium Bicarbonate 325 mg 11/23/20 11:53 Sodium Bicarbonate 325 Mg Tab FEEDTUBE PRN PRN For Clogged Feeding Tube Sodium Chloride 10 ml 11/16/20 10:00 11/25/20 10:08 Sodium Chloride 0.9% 10 Ml Flush Syringe IV 10 ml BID RAEANN Administration Sodium Chloride 10 ml 11/15/20 23:55 Sodium Chloride 0.9% 10 Ml Flush Syringe IV PRN PRN LINE FLUSH Nutrition/Malnutrition Assess - Dietary Evaluation Nutrition/Malnutrition Findings: Nutrition Notes Start: 11/20/20 12:03 Freq: Status: Active Protocol: Document 11/24/20 11:31 KIT (Rec: 11/24/20 11:52 KIT [id number]) Co-Sign 11/24/20 11:31 MK Nutrition Notes Initial or Follow up Reassessment Current Diagnosis Diabetes,Sepsis,Respiratory Failure Other Pertinent Diagnosis Bilat pneu, COVID-19 (+) Current Diet Glucerna 1.2 at 100 ml/hr when not proned, 20 ml when proned Labs/Tests 11/23/20: Na 136 BUN 33 Cr 0.6 11/24/20: BG POC 199 Pertinent Medications Solu-Medrol Humalog 3 units Height 5 ft 6 in Weight 72.5 kg Usual Body Weight 80.5 kg [place] Body Weight (kg) 64.54 BMI 25.7 Weight Status Overweight Subjective/Other Information F/u TF tolerance and renal labs. Observed pt supine at 30 degrees HOB and TF running at 20 ml/hr. Communicated with RN to increase TF as tolerated while supine. Noted pt's BUN increased but potassium WNL. Percent of energy/protein needs met: 32%/33% (proned) Burn Absent Trauma Absent GI Symptoms None Current % PO Negligible Minimum of two criteria Yes Energy Intake (severe) < or equal to 50% Estimated Energy Requirement > or equal to 5 days Interpretation of Weight Loss (severe) >2% in 1 week #3 Nutrition Diagnosis Inadequate oral intake Diagnosis Progress(for reassessment Continues documentation) #2 Nutrition Diagnosis Malnutrition Diagnosis Progress(for reassessment Continues documentation) #1 Nutrition Diagnosis Unintended weight loss Diagnosis Progress(for reassessment Continues documentation) Is patient on ventilator? Yes Is Patient Ambulatory and/or Out of Bed No REE-([place]-St. Jeor-confined to bed) 7230.004 Calculation [facility] Additional Notes Protein needs 1.2-2g/k-145g/day Fluid 1ml/kcal or per Nutrition Intervention Change Diet Order: Continue TF, updated flush due to low Na. Nutrition Support: Supine (12h): Glucerna 1.2 at 100ml/hr with flush of 100 ml q4h. Prone (12h): Glucerna 1.2 at 20 ml/hr with flush of 50 ml q4h. Kcal 1,728 Protein (gm) 86 Fluid (mL) 1,159 Goal #1 TF tolerance Goal #2 Meet at least 75% of energy and protein needs via TF Anticipated Discharge Needs: Unknown at this time Follow-Up By: 11/26/20 Additional Comments F/u TF tolerance
[2020-11-25 14:07] LABS: Platelet Estimate Consistent w Auto; RBC Morphology Normal
[2020-11-25] MEDS: INSULIN GLARGINE 100 UNITS/ML SUB-Q SCH (21:56)
[2020-11-26] MEDS: SODIUM CHLORIDE 0.9% IV SCH (00:35)
[2020-11-26] MEDS: CISATRACURIUM IV SCH (00:35)
[2020-11-26] MEDS: fentaNYL DRIP Premix 2,000 MCG/100 ML BAG IV SCH ×3 (04:50→17:56)
[2020-11-26] MEDS: methylPREDNISolone Sod Succinate 125 MG/2 ML INJ IV SCH ×4 (06:21→23:53)
[2020-11-26] MEDS: INSULIN LISPRO 100 UNIT/ML SUB-Q SCH ×4 (06:23→23:53)
[2020-11-26 06:29] LABS: Hematocrit 41.5 % (35.5-45.6); Hemoglobin 13.5 gm/dl (11.8-15.2); Mean Corpuscular HGB Conc 33 % (32-34); Mean Corpuscular Volume 90 fl (84-94); Platelet Count 275 K/mm3 (140-440); Red Blood Count 4.61 M/mm3 (3.65-5.03); Red Cell Distribution Width 13.9 % (13.2-15.2)
[2020-11-26 06:52] LABS: Alanine Aminotransferase 132 units/L (7-56); Albumin 2.4 g/dL (3.9-5); BUN/Creatinine Ratio 60; Blood Urea Nitrogen 30 mg/dL (9-20); Calcium 7.7 mg/dL (8.4-10.2); Hemolysis Index 5
[2020-11-26 09:57] LABS: Total Cells Counted 100
[2020-11-26 09:58] LABS: Platelet Estimate Consistent w Auto; RBC Morphology Normal
--- NOTE | 2020-11-26 10:02 | XRay Report ---
CHEST 1 VIEW 11/26/2020 8:35 AM INDICATION / CLINICAL INFORMATION: follow up respiratory failure. COMPARISON: 11/25/2020 FINDINGS: SUPPORT DEVICES: Stable, satisfactory device positioning. HEART / MEDIASTINUM: Stable. LUNGS / PLEURA: Stable diffuse bilateral interstitial opacities. No pneumothorax. ADDITIONAL FINDINGS: There is some subcutaneous air in the neck without appreciable pneumomediastinum or pneumothorax. IMPRESSION: 1. Interval development of subcutaneous air in the neck. 2. No appreciable pneumothorax. Signer Name: Salvador Horton MD Signed: 11/26/2020 9:58 AM Workstation Name: [id number]
[2020-11-26] MEDS: MINERAL OIL/PETROLATUM, WHITE OPHTH OINT 3.5 GM OU SCH ×4 (10:05→23:08)
[2020-11-26] MEDS: MIDAZOLAM 100 MG in SODIUM CHLORIDE 0.9% 80 ML IV SCH (11:16)
[2020-11-26] MEDS: FAMOTIDINE 20 MG/2 ML INJ IV SCH ×2 (11:17→21:24)
[2020-11-26] MEDS: ENOXAPARIN 80 MG/0.8 ML INJ SUB-Q SCH ×2 (11:17→21:24)
--- NOTE | 2020-11-26 12:19 | Progress Note ---
Assessment and Plan 59 y/o male with acute respiratory failure, abnormal CXR and abnormal lab studies. 11/26/20: Paralytics are off. Continue current level of sedation. Will prone for 12 hours today and repeat ABG in the am. Continue lung protective strategy. Guarded prognosis. 11/25/20: Prone again to 16 hours, will prone at 12-12:30. Continue paralytics for 24 more hours. Discussed the idea of permissive hypercapnea again today and as long as pH is above 7.2 no changes should be made to TV and or RR without discussing with physician. Continue to monitor urine output, guarded prognosis. Hold on lasix therapy today. 11/24/20: Prone again today. Will try 48 hours of paralyzing the patient to see if this will help with oxygenation. Will speak with RT's about permissive hypercapnea and that pH's of 7.2 and greater are ok. Continue high doses steroids. Prognosis is still very very guarded. If not improvement with paralytics, will attempt transfer. 11/23/20: Prone again today for 12 hours. Continue High Dose steroids. Hold on lasix given marginal BP's. Prognosis is very very guarded to poor. Will continue all supportive measures. If not able to wean from 100%, will attempt transfer for ECMO. 11/20/20: WIll change to solumedrol 60q6 today. Hold on lasix today. Given his increasing oxygen requirement, will likely end up intubated. OVerall prognosis is very poor. 11/19/20: lasix 40mg IV x1 today. Will speak with ID but may consider increasing steroids to see if this will help with oxygenation. Continue Remdesivir. Prognosis remains guarded. 11/18/20: Continue bipap, goal is to attempt to prevent prolong intubation for as long as possible. Lasix again today. Steroids and Remdesivir. Guarded Prognosis. 11/17/20: Continue bipap therapy. Monitor mental state. High risk for Intubation. Continue BID anticoagulation. Prone if able. BNP was elevated but not grossly elevated. Will still give lasix with hopes of achieving net negative state. STeroids and remdesivir. Overall prognosis is guarded, extremely guarded. 1. Pulm- Agree with concern for covid. Agree with empiric abx but procal is only mildly elevated. Await cultures. Continue bipap therapy for now but will need to monitor closely. [facility] has ordered CTA, but I spoke with pharmacy and we will empirically treat with BID lovenox therapy. COntinue empiric steroid therapy for COVID until studies back. Not sure that he will be able to prone on bipap therapy. Monitor volume status and run as dry as possible. 2. Renal-normal function but all electrolytes abnormal. HYponatremia and Hypochloremia volume up vs volume down. Sent BNP. Would suggest obtaning echo as well. Not sure what to make of elevated lactate unless that is from increased work of breathing or damage to other tissue unknown. May need to check LFT's and Coags as well. 3. Guarded Prognosis. CCT 31 minutes. Subjective Date of service: 11/26/20 Principal diagnosis: COVID-19 Interval history: No acute events. PaO2 this am on 80% was 61. Proned 16 hours yesterday. Objective Vital Signs - 12hr 11/26/20 11/26/20 11/26/20 00:15 00:28 00:30 Temperature Pulse Rate 71 72 71 Pulse Rate [ From Monitor] Respiratory 22 20 Rate Blood Pressure 114/62 111/61 111/61 O2 Sat by Pulse 100 100 100 Oximetry 11/26/20 11/26/20 11/26/20 00:45 01:00 01:15 Temperature Pulse Rate 72 73 71 Pulse Rate [ From Monitor] Respiratory 13 22 20 Rate Blood Pressure 112/63 113/62 117/60 O2 Sat by Pulse 100 100 99 Oximetry 11/26/20 11/26/20 11/26/20 01:30 01:45 02:00 Temperature Pulse Rate 71 75 72 Pulse Rate [ From Monitor] Respiratory 16 16 31 H Rate Blood Pressure 108/60 110/63 105/62 O2 Sat by Pulse 100 100 100 Oximetry 11/26/20 11/26/20 11/26/20 02:15 02:30 02:45 Temperature Pulse Rate 71 73 69 Pulse Rate [ From Monitor] Respiratory 17 15 18 Rate Blood Pressure 112/60 106/61 106/60 O2 Sat by Pulse 100 100 100 Oximetry 11/26/20 11/26/20 11/26/20 03:00 03:15 03:30 Temperature Pulse Rate 69 69 68 Pulse Rate [ From Monitor] Respiratory 24 21 15 Rate Blood Pressure 108/59 103/61 104/60 O2 Sat by Pulse 100 100 100 Oximetry 11/26/20 11/26/20 11/26/20 03:45 04:00 04:15 Temperature 97.7 F Pulse Rate 67 73 69 Pulse Rate [ 67 From Monitor] Respiratory 22 26 H 25 H Rate Blood Pressure 105/59 109/62 113/65 O2 Sat by Pulse 100 100 100 Oximetry 11/26/20 11/26/20 11/26/20 04:24 04:30 04:45 Temperature Pulse Rate 64 66 66 Pulse Rate [ From Monitor] Respiratory 29 H 27 H Rate Blood Pressure 113/65 109/66 105/63 O2 Sat by Pulse 100 99 100 Oximetry 11/26/20 11/26/20 11/26/20 05:00 05:15 05:30 Temperature Pulse Rate 69 69 67 Pulse Rate [ From Monitor] Respiratory 27 H 20 26 H Rate Blood Pressure 108/64 104/62 109/62 O2 Sat by Pulse 100 100 100 Oximetry 11/26/20 11/26/20 11/26/20 05:45 06:00 06:15 Temperature Pulse Rate 67 67 66 Pulse Rate [ From Monitor] Respiratory 23 24 11 L Rate Blood Pressure 103/60 108/61 106/57 O2 Sat by Pulse 100 100 93 Oximetry 11/26/20 11/26/20 11/26/20 06:30 06:45 07:00 Temperature Pulse Rate 64 65 64 Pulse Rate [ From Monitor] Respiratory 29 H 28 H 15 Rate Blood Pressure 125/64 124/70 125/70 O2 Sat by Pulse 97 97 96 Oximetry 11/26/20 11/26/20 11/26/20 07:15 07:30 07:45 Temperature 98.4 F Pulse Rate 63 66 66 Pulse Rate [ From Monitor] Respiratory 23 16 18 Rate Blood Pressure 128/66 120/65 115/67 O2 Sat by Pulse 95 95 95 Oximetry 11/26/20 11/26/20 11/26/20 07:55 08:00 08:15 Temperature 98.4 F Pulse Rate 66 64 64 Pulse Rate [ From Monitor] Respiratory 21 20 Rate Blood Pressure 115/67 118/65 116/66 O2 Sat by Pulse 95 95 96 Oximetry 11/26/20 11/26/20 11/26/20 08:30 08:45 09:00 Temperature Pulse Rate 66 68 66 Pulse Rate [ From Monitor] Respiratory 14 13 14 Rate Blood Pressure 120/65 113/64 115/65 O2 Sat by Pulse 97 96 96 Oximetry 11/26/20 11/26/20 11/26/20 09:15 09:30 09:45 Temperature Pulse Rate 68 69 68 Pulse Rate [ From Monitor] Respiratory 16 25 H 22 Rate Blood Pressure 112/64 113/65 110/63 O2 Sat by Pulse 97 97 97 Oximetry 11/26/20 11/26/20 11/26/20 10:00 10:15 10:30 Temperature Pulse Rate 68 71 71 Pulse Rate [ From Monitor] Respiratory 21 17 14 Rate Blood Pressure 109/63 100/64 99/63 O2 Sat by Pulse 97 97 98 Oximetry 11/26/20 11/26/20 11/26/20 10:45 11:00 11:14 Temperature Pulse Rate 71 69 74 Pulse Rate [ From Monitor] Respiratory 19 25 H Rate Blood Pressure 118/67 120/70 123/67 O2 Sat by Pulse 97 97 97 Oximetry 11/26/20 11/26/20 11:15 11:30 Temperature Pulse Rate 70 72 Pulse Rate [ From Monitor] Respiratory 24 18 Rate Blood Pressure 123/67 123/72 O2 Sat by Pulse 98 98 Oximetry Constitutional: alert ENT: other (Now intubated) Ascultation: Bilateral: rales, rhonchi Percussion: Bilateral: not dull Cardiovascular: regular rate and rhythm Gastrointestinal: soft, non-tender CBC and BMP: 11/26/20 06:04 11/26/20 04:00 ABG, PT/INR, D-dimer: ABG ABG pH 7.272 (7.320-7.450) L 11/25/20 03:29 POC ABG pCO2 69.0 mmHg (32.0-48.0) H 11/25/20 03:29 POC ABG pO2 132.9 mmHg (83-108) H 11/25/20 03:29 POC ABG HCO3 31.1 11/25/20 03:29 PT/INR, D-dimer D-Dimer 926.11 ng/mlDDU (0-234) H 11/26/20 06:04 Abnormal lab findings: Abnormal Labs 11/15/20 11/15/20 11/15/20 10:39 10:39 10:39 WBC 14.3 H RBC 5.17 H Lymph % (Auto) 7.8 L [place] % (Auto) 7.6 H Lymph # (Auto) 1.1 L [place] # (Auto) 1.1 H Baso # (Auto) Seg Neutrophils % 83.3 H Seg Neuts % (Manual) Lymphocytes % (Manual) Seg Neutrophils # 11.9 H Seg Neutrophils # Man Lymphocytes # (Manual) D-Dimer ABG pH POC ABG pCO2 POC ABG pO2 ABG Oxyhemoglobin ABG Sodium ABG Potassium ABG Chloride ABG Glucose Sodium 128 L Chloride 96.0 L Carbon Dioxide BUN Creatinine 0.7 L Glucose 238 H POC Glucose Hemoglobin A1c Lactic Acid 4.10 H* Calcium 7.0 L Ferritin Total Bilirubin 1.40 H AST 49 H ALT 70 H Alkaline Phosphatase Lactate Dehydrogenase 663 H C-Reactive Protein 19.80 H Total Protein Albumin 2.9 L Arterial Blood Glucose Arterial Blood Ionized Calcium Ur Specific [place] Coronavirus (PCR) 11/15/20 11/15/20 11/15/20 10:39 10:39 11:20 WBC RBC Lymph % (Auto) [place] % (Auto) Lymph # (Auto) [place] # (Auto) Baso # (Auto) Seg Neutrophils % Seg Neuts % (Manual) Lymphocytes % (Manual) Seg Neutrophils # Seg Neutrophils # Man Lymphocytes # (Manual) D-Dimer > 97489 H ABG pH POC ABG pCO2 29.9 L POC ABG pO2 137.3 H ABG Oxyhemoglobin ABG Sodium 126.5 L ABG Potassium ABG Chloride ABG Glucose 248 H Sodium Chloride Carbon Dioxide BUN Creatinine Glucose POC Glucose Hemoglobin A1c Lactic Acid Calcium Ferritin 672.8 H Total Bilirubin AST ALT Alkaline Phosphatase Lactate Dehydrogenase C-Reactive Protein Total Protein Albumin Arterial Blood Glucose 248 H Arterial Blood Ionized Calcium 4.1 L Ur Specific [place] Coronavirus (PCR) 11/15/20 11/15/20 11/16/20 13:41 23:41 01:45 WBC RBC Lymph % (Auto) [place] % (Auto) Lymph # (Auto) [place] # (Auto) Baso # (Auto) Seg Neutrophils % Seg Neuts % (Manual) Lymphocytes % (Manual) Seg Neutrophils # Seg Neutrophils # Man Lymphocytes # (Manual) D-Dimer ABG pH POC ABG pCO2 POC ABG pO2 ABG Oxyhemoglobin ABG Sodium ABG Potassium ABG Chloride ABG Glucose Sodium Chloride Carbon Dioxide BUN Creatinine Glucose POC Glucose 284 H Hemoglobin A1c Lactic Acid 2.30 H* Calcium Ferritin Total Bilirubin AST ALT Alkaline Phosphatase Lactate Dehydrogenase C-Reactive Protein Total Protein Albumin Arterial Blood Glucose Arterial Blood Ionized Calcium Ur Specific [place] 1.037 H Coronavirus (PCR) 11/16/20 11/16/20 11/16/20 05:29 05:29 05:29 WBC 12.9 H RBC Lymph % (Auto) 4.5 L [place] % (Auto) Lymph # (Auto) 0.6 L [place] # (Auto) Baso # (Auto) 0.2 H Seg Neutrophils % 89.8 H Seg Neuts % (Manual) Lymphocytes % (Manual) Seg Neutrophils # 11.5 H Seg Neutrophils # Man Lymphocytes # (Manual) D-Dimer ABG pH POC ABG pCO2 POC ABG pO2 ABG Oxyhemoglobin ABG Sodium ABG Potassium ABG Chloride ABG Glucose Sodium 131 L Chloride Carbon Dioxide 21 L BUN 23 H Creatinine 0.6 L Glucose 342 H POC Glucose Hemoglobin A1c Lactic Acid 2.60 H* Calcium 7.0 L Ferritin Total Bilirubin AST ALT Alkaline Phosphatase Lactate Dehydrogenase C-Reactive Protein Total Protein Albumin 2.4 L Arterial Blood Glucose Arterial Blood Ionized Calcium Ur Specific [place] Coronavirus (PCR) 11/16/20 11/16/20 11/16/20 05:29 08:11 12:11 WBC RBC Lymph % (Auto) [place] % (Auto) Lymph # (Auto) [place] # (Auto) Baso # (Auto) Seg Neutrophils % Seg Neuts % (Manual) Lymphocytes % (Manual) Seg Neutrophils # Seg Neutrophils # Man Lymphocytes # (Manual) D-Dimer ABG pH POC ABG pCO2 POC ABG pO2 ABG Oxyhemoglobin ABG Sodium ABG Potassium ABG Chloride ABG Glucose Sodium Chloride Carbon Dioxide BUN Creatinine Glucose POC Glucose 329 H 320 H Hemoglobin A1c 11.7 H Lactic Acid Calcium Ferritin Total Bilirubin AST ALT Alkaline Phosphatase Lactate Dehydrogenase C-Reactive Protein Total Protein Albumin Arterial Blood Glucose Arterial Blood Ionized Calcium Ur Specific [place] Coronavirus (PCR) 11/16/20 11/16/20 11/16/20 16:13 21:29 Unknown WBC RBC Lymph % (Auto) [place] % (Auto) Lymph # (Auto) [place] # (Auto) Baso # (Auto) Seg Neutrophils % Seg Neuts % (Manual) Lymphocytes % (Manual) Seg Neutrophils # Seg Neutrophils # Man Lymphocytes # (Manual) D-Dimer ABG pH POC ABG pCO2 POC ABG pO2 ABG Oxyhemoglobin ABG Sodium ABG Potassium ABG Chloride ABG Glucose Sodium Chloride Carbon Dioxide BUN Creatinine Glucose POC Glucose 257 H 376 H Hemoglobin A1c Lactic Acid Calcium Ferritin Total Bilirubin AST ALT Alkaline Phosphatase Lactate Dehydrogenase C-Reactive Protein Total Protein Albumin Arterial Blood Glucose Arterial Blood Ionized Calcium Ur Specific [place] Coronavirus (PCR) Positive A 11/17/20 11/17/20 11/17/20 07:42 12:07 17:25 WBC RBC Lymph % (Auto) [place] % (Auto) Lymph # (Auto) [place] # (Auto) Baso # (Auto) Seg Neutrophils % Seg Neuts % (Manual) Lymphocytes % (Manual) Seg Neutrophils # Seg Neutrophils # Man Lymphocytes # (Manual) D-Dimer ABG pH POC ABG pCO2 POC ABG pO2 ABG Oxyhemoglobin ABG Sodium ABG Potassium ABG Chloride ABG Glucose Sodium Chloride Carbon Dioxide BUN Creatinine Glucose POC Glucose 231 H 380 H 302 H Hemoglobin A1c Lactic Acid Calcium Ferritin Total Bilirubin AST ALT Alkaline Phosphatase Lactate Dehydrogenase C-Reactive Protein Total Protein Albumin Arterial Blood Glucose Arterial Blood Ionized Calcium Ur Specific [place] Coronavirus (PCR) 11/17/20 11/18/20 11/18/20 21:53 04:25 07:45 WBC RBC Lymph % (Auto) [place] % (Auto) Lymph # (Auto) [place] # (Auto) Baso # (Auto) Seg Neutrophils % Seg Neuts % (Manual) Lymphocytes % (Manual) Seg Neutrophils # Seg Neutrophils # Man Lymphocytes # (Manual) D-Dimer ABG pH POC ABG pCO2 POC ABG pO2 ABG Oxyhemoglobin ABG Sodium ABG Potassium ABG Chloride ABG Glucose Sodium 136 L Chloride Carbon Dioxide BUN 24 H Creatinine 0.6 L Glucose 212 H POC Glucose 293 H 216 H Hemoglobin A1c Lactic Acid Calcium 7.4 L Ferritin Total Bilirubin AST 41 H ALT Alkaline Phosphatase 142 H Lactate Dehydrogenase C-Reactive Protein Total Protein Albumin 2.3 L Arterial Blood Glucose Arterial Blood Ionized Calcium Ur Specific [place] Coronavirus (PCR) 11/18/20 11/18/20 11/18/20 12:28 15:58 21:37 WBC RBC Lymph % (Auto) [place] % (Auto) Lymph # (Auto) [place] # (Auto) Baso # (Auto) Seg Neutrophils % Seg Neuts % (Manual) Lymphocytes % (Manual) Seg Neutrophils # Seg Neutrophils # Man Lymphocytes # (Manual) D-Dimer ABG pH POC ABG pCO2 POC ABG pO2 ABG Oxyhemoglobin ABG Sodium ABG Potassium ABG Chloride ABG Glucose Sodium Chloride Carbon Dioxide BUN Creatinine Glucose POC Glucose 165 H 220 H 311 H Hemoglobin A1c Lactic Acid Calcium Ferritin Total Bilirubin AST ALT Alkaline Phosphatase Lactate Dehydrogenase C-Reactive Protein Total Protein Albumin Arterial Blood Glucose Arterial Blood Ionized Calcium Ur Specific [place] Coronavirus (PCR) 11/19/20 11/19/20 11/19/20 05:35 07:40 12:39 WBC RBC Lymph % (Auto) [place] % (Auto) Lymph # (Auto) [place] # (Auto) Baso # (Auto) Seg Neutrophils % Seg Neuts % (Manual) Lymphocytes % (Manual) Seg Neutrophils # Seg Neutrophils # Man Lymphocytes # (Manual) D-Dimer ABG pH POC ABG pCO2 POC ABG pO2 ABG Oxyhemoglobin ABG Sodium ABG Potassium ABG Chloride ABG Glucose Sodium 132 L Chloride Carbon Dioxide BUN 25 H Creatinine 0.5 L Glucose 179 H POC Glucose 149 H 306 H Hemoglobin A1c Lactic Acid Calcium 7.5 L Ferritin Total Bilirubin AST ALT Alkaline Phosphatase 139 H Lactate Dehydrogenase C-Reactive Protein Total Protein Albumin 2.4 L Arterial Blood Glucose Arterial Blood Ionized Calcium Ur Specific [place] Coronavirus (PCR) 11/19/20 11/19/20 11/20/20 16:17 21:25 08:30 WBC RBC Lymph % (Auto) [place] % (Auto) Lymph # (Auto) [place] # (Auto) Baso # (Auto) Seg Neutrophils % Seg Neuts % (Manual) Lymphocytes % (Manual) Seg Neutrophils # Seg Neutrophils # Man Lymphocytes # (Manual) D-Dimer ABG pH POC ABG pCO2 POC ABG pO2 ABG Oxyhemoglobin ABG Sodium ABG Potassium ABG Chloride ABG Glucose Sodium Chloride Carbon Dioxide BUN Creatinine Glucose POC Glucose 364 H 347 H 141 H Hemoglobin A1c Lactic Acid Calcium Ferritin Total Bilirubin AST ALT Alkaline Phosphatase Lactate Dehydrogenase C-Reactive Protein Total Protein Albumin Arterial Blood Glucose Arterial Blood Ionized Calcium Ur Specific [place] Coronavirus (PCR) 11/20/20 11/20/20 11/20/20 08:50 11:32 16:19 WBC RBC Lymph % (Auto) [place] % (Auto) Lymph # (Auto) [place] # (Auto) Baso # (Auto) Seg Neutrophils % Seg Neuts % (Manual) Lymphocytes % (Manual) Seg Neutrophils # Seg Neutrophils # Man Lymphocytes # (Manual) D-Dimer ABG pH POC ABG pCO2 POC ABG pO2 ABG Oxyhemoglobin ABG Sodium ABG Potassium ABG Chloride ABG Glucose Sodium 132 L Chloride 97.6 L Carbon Dioxide BUN 26 H Creatinine 0.5 L Glucose 201 H POC Glucose 296 H 327 H Hemoglobin A1c Lactic Acid Calcium 7.9 L Ferritin Total Bilirubin AST ALT Alkaline Phosphatase 137 H Lactate Dehydrogenase C-Reactive Protein Total Protein Albumin 2.6 L Arterial Blood Glucose Arterial Blood Ionized Calcium Ur Specific [place] Coronavirus (PCR) 11/20/20 11/21/20 11/21/20 22:09 07:59 13:51 WBC RBC Lymph % (Auto) [place] % (Auto) Lymph # (Auto) [place] # (Auto) Baso # (Auto) Seg Neutrophils % Seg Neuts % (Manual) Lymphocytes % (Manual) Seg Neutrophils # Seg Neutrophils # Man Lymphocytes # (Manual) D-Dimer ABG pH POC ABG pCO2 POC ABG pO2 ABG Oxyhemoglobin ABG Sodium ABG Potassium ABG Chloride ABG Glucose Sodium Chloride Carbon Dioxide BUN Creatinine Glucose POC Glucose 311 H 218 H 304 H Hemoglobin A1c Lactic Acid Calcium Ferritin Total Bilirubin AST ALT Alkaline Phosphatase Lactate Dehydrogenase C-Reactive Protein Total Protein Albumin Arterial Blood Glucose Arterial Blood Ionized Calcium Ur Specific [place] Coronavirus (PCR) 11/21/20 11/21/20 11/21/20 16:09 21:34 23:00 WBC RBC Lymph % (Auto) [place] % (Auto) Lymph # (Auto) [place] # (Auto) Baso # (Auto) Seg Neutrophils % Seg Neuts % (Manual) Lymphocytes % (Manual) Seg Neutrophils # Seg Neutrophils # Man Lymphocytes # (Manual) D-Dimer ABG pH 7.206 L POC ABG pCO2 59.3 H POC ABG pO2 76.7 L ABG Oxyhemoglobin ABG Sodium 133.1 L ABG Potassium ABG Chloride ABG Glucose 320 H Sodium Chloride Carbon Dioxide BUN Creatinine Glucose POC Glucose 239 H 279 H Hemoglobin A1c Lactic Acid Calcium Ferritin Total Bilirubin AST ALT Alkaline Phosphatase Lactate Dehydrogenase C-Reactive Protein Total Protein Albumin Arterial Blood Glucose 320 H Arterial Blood Ionized Calcium Ur Specific [place] Coronavirus (PCR) 11/22/20 11/22/20 11/22/20 04:52 04:52 04:52 WBC RBC Lymph % (Auto) [place] % (Auto) Lymph # (Auto) [place] # (Auto) Baso # (Auto) Seg Neutrophils % Seg Neuts % (Manual) Lymphocytes % (Manual) Seg Neutrophils # Seg Neutrophils # Man Lymphocytes # (Manual) D-Dimer 1858.36 H ABG pH POC ABG pCO2 POC ABG pO2 ABG Oxyhemoglobin ABG Sodium ABG Potassium ABG Chloride ABG Glucose Sodium Chloride Carbon Dioxide BUN Creatinine Glucose POC Glucose Hemoglobin A1c Lactic Acid Calcium Ferritin 734.2 H Total Bilirubin AST ALT Alkaline Phosphatase Lactate Dehydrogenase 404 H C-Reactive Protein 2.80 H Total Protein Albumin Arterial Blood Glucose Arterial Blood Ionized Calcium Ur Specific [place] Coronavirus (PCR) 11/22/20 11/22/20 11/22/20 05:12 05:39 11:50 WBC RBC Lymph % (Auto) [place] % (Auto) Lymph # (Auto) [place] # (Auto) Baso # (Auto) Seg Neutrophils % Seg Neuts % (Manual) Lymphocytes % (Manual) Seg Neutrophils # Seg Neutrophils # Man Lymphocytes # (Manual) D-Dimer ABG pH POC ABG pCO2 POC ABG pO2 51.0 L ABG Oxyhemoglobin ABG Sodium 131.2 L ABG Potassium 4.6 H ABG Chloride ABG Glucose 317 H Sodium Chloride Carbon Dioxide BUN Creatinine Glucose POC Glucose 340 H 417 H Hemoglobin A1c Lactic Acid Calcium Ferritin Total Bilirubin AST ALT Alkaline Phosphatase Lactate Dehydrogenase C-Reactive Protein Total Protein Albumin Arterial Blood Glucose 317 H Arterial Blood Ionized Calcium 4.4 L Ur Specific [place] Coronavirus (PCR) 11/22/20 11/22/20 11/22/20 12:22 12:22 17:10 WBC 14.4 H RBC Lymph % (Auto) [place] % (Auto) Lymph # (Auto) [place] # (Auto) Baso # (Auto) Seg Neutrophils % Seg Neuts % (Manual) 98.0 H Lymphocytes % (Manual) Seg Neutrophils # Seg Neutrophils # Man 14.1 H Lymphocytes # (Manual) 0.0 L D-Dimer ABG pH POC ABG pCO2 POC ABG pO2 ABG Oxyhemoglobin ABG Sodium ABG Potassium ABG Chloride ABG Glucose Sodium 132 L Chloride Carbon Dioxide BUN 36 H Creatinine 0.6 L Glucose 219 H POC Glucose 157 H Hemoglobin A1c Lactic Acid Calcium 7.2 L Ferritin Total Bilirubin AST ALT Alkaline Phosphatase Lactate Dehydrogenase C-Reactive Protein Total Protein Albumin Arterial Blood Glucose Arterial Blood Ionized Calcium Ur Specific [place] Coronavirus (PCR) 11/22/20 11/22/20 11/22/20 18:33 21:44 23:47 WBC RBC Lymph % (Auto) [place] % (Auto) Lymph # (Auto) [place] # (Auto) Baso # (Auto) Seg Neutrophils % Seg Neuts % (Manual) Lymphocytes % (Manual) Seg Neutrophils # Seg Neutrophils # Man Lymphocytes # (Manual) D-Dimer ABG pH POC ABG pCO2 POC ABG pO2 60.8 L ABG Oxyhemoglobin 88.1 L ABG Sodium 135.1 L ABG Potassium ABG Chloride ABG Glucose 141 H Sodium Chloride Carbon Dioxide BUN Creatinine Glucose POC Glucose 117 H 123 H Hemoglobin A1c Lactic Acid Calcium Ferritin Total Bilirubin AST ALT Alkaline Phosphatase Lactate Dehydrogenase C-Reactive Protein Total Protein Albumin Arterial Blood Glucose 141 H Arterial Blood Ionized Calcium Ur Specific [place] Coronavirus (PCR) 11/23/20 11/23/20 11/23/20 04:00 04:00 05:23 WBC 14.4 H RBC Lymph % (Auto) [place] % (Auto) Lymph # (Auto) [place] # (Auto) Baso # (Auto) Seg Neutrophils % Seg Neuts % (Manual) Lymphocytes % (Manual) Seg Neutrophils # Seg Neutrophils # Man Lymphocytes # (Manual) D-Dimer ABG pH POC ABG pCO2 POC ABG pO2 ABG Oxyhemoglobin ABG Sodium ABG Potassium ABG Chloride ABG Glucose Sodium 136 L Chloride Carbon Dioxide BUN 33 H Creatinine 0.6 L Glucose 115 H POC Glucose 173 H Hemoglobin A1c Lactic Acid Calcium 7.1 L Ferritin Total Bilirubin AST 64 H ALT 75 H Alkaline Phosphatase Lactate Dehydrogenase C-Reactive Protein Total Protein 5.9 L D Albumin 2.4 L Arterial Blood Glucose Arterial Blood Ionized Calcium Ur Specific [place] Coronavirus (PCR) 11/23/20 11/23/20 11/23/20 05:40 11:27 17:10 WBC RBC Lymph % (Auto) [place] % (Auto) Lymph # (Auto) [place] # (Auto) Baso # (Auto) Seg Neutrophils % Seg Neuts % (Manual) Lymphocytes % (Manual) Seg Neutrophils # Seg Neutrophils # Man Lymphocytes # (Manual) D-Dimer ABG pH POC ABG pCO2 POC ABG pO2 56.5 L ABG Oxyhemoglobin ABG Sodium ABG Potassium ABG Chloride 109.0 H ABG Glucose 114 H Sodium Chloride Carbon Dioxide BUN Creatinine Glucose POC Glucose 114 H 136 H Hemoglobin A1c Lactic Acid Calcium Ferritin Total Bilirubin AST ALT Alkaline Phosphatase Lactate Dehydrogenase C-Reactive Protein Total Protein Albumin Arterial Blood Glucose 114 H Arterial Blood Ionized Calcium 4.5 L Ur Specific [place] Coronavirus (PCR) 11/24/20 11/24/20 11/24/20 05:14 05:14 05:14 WBC RBC Lymph % (Auto) [place] % (Auto) Lymph # (Auto) [place] # (Auto) Baso # (Auto) Seg Neutrophils % Seg Neuts % (Manual) Lymphocytes % (Manual) Seg Neutrophils # Seg Neutrophils # Man Lymphocytes # (Manual) D-Dimer 1433.39 H ABG pH POC ABG pCO2 POC ABG pO2 ABG Oxyhemoglobin ABG Sodium ABG Potassium ABG Chloride ABG Glucose Sodium Chloride Carbon Dioxide BUN Creatinine Glucose POC Glucose Hemoglobin A1c Lactic Acid Calcium Ferritin 997.5 H Total Bilirubin AST ALT Alkaline Phosphatase Lactate Dehydrogenase 463 H C-Reactive Protein Total Protein Albumin Arterial Blood Glucose Arterial Blood Ionized Calcium Ur Specific [place] Coronavirus (PCR) 11/24/20 11/24/20 11/24/20 05:31 05:36 12:05 WBC RBC Lymph % (Auto) [place] % (Auto) Lymph # (Auto) [place] # (Auto) Baso # (Auto) Seg Neutrophils % Seg Neuts % (Manual) Lymphocytes % (Manual) Seg Neutrophils # Seg Neutrophils # Man Lymphocytes # (Manual) D-Dimer ABG pH POC ABG pCO2 POC ABG pO2 57.2 L ABG Oxyhemoglobin ABG Sodium ABG Potassium ABG Chloride ABG Glucose 180 H Sodium Chloride Carbon Dioxide BUN Creatinine Glucose POC Glucose 199 H 143 H Hemoglobin A1c Lactic Acid Calcium Ferritin Total Bilirubin AST ALT Alkaline Phosphatase Lactate Dehydrogenase C-Reactive Protein Total Protein Albumin Arterial Blood Glucose 180 H Arterial Blood Ionized Calcium 4.5 L Ur Specific [place] Coronavirus (PCR) 11/24/20 11/24/20 11/24/20 12:14 17:47 23:47 WBC RBC Lymph % (Auto) [place] % (Auto) Lymph # (Auto) [place] # (Auto) Baso # (Auto) Seg Neutrophils % Seg Neuts % (Manual) Lymphocytes % (Manual) Seg Neutrophils # Seg Neutrophils # Man Lymphocytes # (Manual) D-Dimer ABG pH 7.261 L POC ABG pCO2 59.7 H POC ABG pO2 75.7 L ABG Oxyhemoglobin 92.5 L ABG Sodium ABG Potassium ABG Chloride 108.0 H ABG Glucose 150 H Sodium Chloride Carbon Dioxide BUN Creatinine Glucose POC Glucose 223 H 179 H Hemoglobin A1c Lactic Acid Calcium Ferritin Total Bilirubin AST ALT Alkaline Phosphatase Lactate Dehydrogenase C-Reactive Protein Total Protein Albumin Arterial Blood Glucose 150 H Arterial Blood Ionized Calcium Ur Specific [place] Coronavirus (PCR) 11/25/20 11/25/20 11/25/20 03:29 05:07 05:15 WBC 13.9 H RBC Lymph % (Auto) [place] % (Auto) Lymph # (Auto) [place] # (Auto) Baso # (Auto) Seg Neutrophils % Seg Neuts % (Manual) 97.0 H Lymphocytes % (Manual) Seg Neutrophils # Seg Neutrophils # Man 13.5 H Lymphocytes # (Manual) 0.0 L D-Dimer ABG pH 7.272 L POC ABG pCO2 69.0 H POC ABG pO2 132.9 H ABG Oxyhemoglobin ABG Sodium ABG Potassium ABG Chloride ABG Glucose 174 H Sodium Chloride Carbon Dioxide BUN Creatinine Glucose POC Glucose 168 H Hemoglobin A1c Lactic Acid Calcium Ferritin Total Bilirubin AST ALT Alkaline Phosphatase Lactate Dehydrogenase C-Reactive Protein Total Protein Albumin Arterial Blood Glucose 174 H Arterial Blood Ionized Calcium Ur Specific [place] Coronavirus (PCR) 11/25/20 11/25/20 11/25/20 05:15 11:25 17:35 WBC RBC Lymph % (Auto) [place] % (Auto) Lymph # (Auto) [place] # (Auto) Baso # (Auto) Seg Neutrophils % Seg Neuts % (Manual) Lymphocytes % (Manual) Seg Neutrophils # Seg Neutrophils # Man Lymphocytes # (Manual) D-Dimer ABG pH POC ABG pCO2 POC ABG pO2 ABG Oxyhemoglobin ABG Sodium ABG Potassium ABG Chloride ABG Glucose Sodium Chloride Carbon Dioxide BUN 29 H Creatinine 0.5 L Glucose 161 H POC Glucose 224 H 228 H Hemoglobin A1c Lactic Acid Calcium 7.8 L Ferritin Total Bilirubin AST 89 H ALT 129 H Alkaline Phosphatase Lactate Dehydrogenase C-Reactive Protein Total Protein 5.8 L Albumin 2.5 L Arterial Blood Glucose Arterial Blood Ionized Calcium Ur Specific [place] Coronavirus (PCR) 11/25/20 11/25/20 11/26/20 20:45 23:28 04:00 WBC RBC Lymph % (Auto) [place] % (Auto) Lymph # (Auto) [place] # (Auto) Baso # (Auto) Seg Neutrophils % Seg Neuts % (Manual) Lymphocytes % (Manual) Seg Neutrophils # Seg Neutrophils # Man Lymphocytes # (Manual) D-Dimer ABG pH POC ABG pCO2 POC ABG pO2 ABG Oxyhemoglobin ABG Sodium ABG Potassium ABG Chloride ABG Glucose Sodium Chloride Carbon Dioxide BUN Creatinine Glucose POC Glucose 177 H 243 H Hemoglobin A1c Lactic Acid Calcium Ferritin 778.8 H Total Bilirubin AST ALT Alkaline Phosphatase Lactate Dehydrogenase C-Reactive Protein Total Protein Albumin Arterial Blood Glucose Arterial Blood Ionized Calcium Ur Specific [place] Coronavirus (PCR) 11/26/20 11/26/20 11/26/20 04:00 05:34 06:04 WBC RBC Lymph % (Auto) [place] % (Auto) Lymph # (Auto) [place] # (Auto) Baso # (Auto) Seg Neutrophils % Seg Neuts % (Manual) Lymphocytes % (Manual) Seg Neutrophils # Seg Neutrophils # Man Lymphocytes # (Manual) D-Dimer 926.11 H ABG pH POC ABG pCO2 POC ABG pO2 ABG Oxyhemoglobin ABG Sodium ABG Potassium ABG Chloride ABG Glucose Sodium Chloride Carbon Dioxide 39 H D BUN 30 H Creatinine 0.5 L Glucose 193 H POC Glucose 178 H Hemoglobin A1c Lactic Acid Calcium 7.7 L Ferritin Total Bilirubin AST 65 H ALT 132 H Alkaline Phosphatase Lactate Dehydrogenase 288 H C-Reactive Protein 1.40 H Total Protein 5.7 L Albumin 2.4 L Arterial Blood Glucose Arterial Blood Ionized Calcium Ur Specific [place] Coronavirus (PCR) 11/26/20 06:04 WBC 12.4 H RBC Lymph % (Auto) [place] % (Auto) Lymph # (Auto) [place] # (Auto) Baso # (Auto) Seg Neutrophils % Seg Neuts % (Manual) 98.0 H Lymphocytes % (Manual) 1.0 L Seg Neutrophils # Seg Neutrophils # Man 12.2 H Lymphocytes # (Manual) 0.1 L D-Dimer ABG pH POC ABG pCO2 POC ABG pO2 ABG Oxyhemoglobin ABG Sodium ABG Potassium ABG Chloride ABG Glucose Sodium Chloride Carbon Dioxide BUN Creatinine Glucose POC Glucose Hemoglobin A1c Lactic Acid Calcium Ferritin Total Bilirubin AST ALT Alkaline Phosphatase Lactate Dehydrogenase C-Reactive Protein Total Protein Albumin Arterial Blood Glucose Arterial Blood Ionized Calcium Ur Specific [place] Coronavirus (PCR)
--- NOTE | 2020-11-26 12:40 | Progress Note ---
Assessment and Plan Cultures: SARS CoV2 PCR: positive Blood culture: No growth 11/21/2019 tracheal aspirate culture: no growth so far A/P: 59-year-old male: #Bilateral pneumonia: secondary to COVID-19. Admission labs showed leukocytosis, D-dimer greater than 10,000, ferritin 672, CRP 19.8, LDH 663, creatinine 0.6, procalcitonin 0.51. Completed 5 days of abx, remdesivir #Acute hypoxic respiratory failure: Failed BiPAP. Remains on the vent. #Elevated d-dimer: DVT scan negative. Unable to get CTA Chest due to patients unstable clinical status #Transaminitis: secondary to COVID-19. Recs: -continue steroids per ICU team: on Solumedrol -Continue prophylactic anticoagulation based on d-dimer per hospital protocol -trend ferritin, LDH, d-dimer, CRP every 2-3 days for risk stratification and to assess disease progression -guarded prognosis Dayday Driscoll MD, FACP [facility] ([facility] O: [phone] F: [phone] Subjective Date of service: 11/26/20 Principal diagnosis: COVID-19 Interval history: No fever. Remains on the vent, sedated. Objective - Exam Narrative Exam: Physical Exam (reviewed in chart to minimize risk of transmission) Constitutional: deferred Head, Ears, Nose: deferred Eyes: deferred Neck: deferred Oral: deferred Cardiovascular: deferred Respiratory: deferred GI: deferred Musculoskeletal: deferred Skin: deferred Hem/Lymphatic: deferred Psych: deferred Neurological: deferred - Constitutional Vitals: Vital Signs Temp Pulse Resp BP Pulse Ox 98.4 F 72 18 123/72 98 11/26/20 08:00 11/26/20 11:30 11/26/20 11:30 11/26/20 11:30 11/26/20 11:30 Temperature -Last 24 Hours Temperature 98.4 F Temperature 98.4 F Temperature 97.7 F Temperature 97.8 F Temperature 98.4 F Temperature 98.7 F - Labs CBC & Chem 7: 11/26/20 06:04 11/26/20 04:00 Labs: Abnormal lab results 11/25/20 11/25/20 11/25/20 Range/Units 05:15 11:25 17:35 WBC (4.5-11.0) K/mm3 Seg Neuts % (Manual) 97.0 H (40.0-70.0) % Lymphocytes % (Manual) (13.4-35.0) % Seg Neutrophils # Man 13.5 H (1.8-7.7) K/mm3 Lymphocytes # (Manual) 0.0 L (1.2-5.4) K/mm3 D-Dimer (0-234) ng/mlDDU Carbon Dioxide (22-30) mmol/L BUN (9-20) mg/dL Creatinine (0.8-1.3) mg/dL Glucose (75-100) mg/dL POC Glucose 224 H 228 H (70-105) mg/dL Calcium (8.4-10.2) mg/dL Ferritin (30.0-300.0) ng/mL AST (5-40) units/L ALT (7-56) units/L Lactate Dehydrogenase (91-180) units/L C-Reactive Protein (0.00-1.30) mg/dL Total Protein (6.3-8.2) g/dL Albumin (3.9-5) g/dL 11/25/20 11/25/20 11/26/20 Range/Units 20:45 23:28 04:00 WBC (4.5-11.0) K/mm3 Seg Neuts % (Manual) (40.0-70.0) % Lymphocytes % (Manual) (13.4-35.0) % Seg Neutrophils # Man (1.8-7.7) K/mm3 Lymphocytes # (Manual) (1.2-5.4) K/mm3 D-Dimer (0-234) ng/mlDDU Carbon Dioxide (22-30) mmol/L BUN (9-20) mg/dL Creatinine (0.8-1.3) mg/dL Glucose (75-100) mg/dL POC Glucose 177 H 243 H (70-105) mg/dL Calcium (8.4-10.2) mg/dL Ferritin 778.8 H (30.0-300.0) ng/mL AST (5-40) units/L ALT (7-56) units/L Lactate Dehydrogenase (91-180) units/L C-Reactive Protein (0.00-1.30) mg/dL Total Protein (6.3-8.2) g/dL Albumin (3.9-5) g/dL 11/26/20 11/26/20 11/26/20 Range/Units 04:00 05:34 06:04 WBC (4.5-11.0) K/mm3 Seg Neuts % (Manual) (40.0-70.0) % Lymphocytes % (Manual) (13.4-35.0) % Seg Neutrophils # Man (1.8-7.7) K/mm3 Lymphocytes # (Manual) (1.2-5.4) K/mm3 D-Dimer 926.11 H (0-234) ng/mlDDU Carbon Dioxide 39 H D (22-30) mmol/L BUN 30 H (9-20) mg/dL Creatinine 0.5 L (0.8-1.3) mg/dL Glucose 193 H (75-100) mg/dL POC Glucose 178 H (70-105) mg/dL Calcium 7.7 L (8.4-10.2) mg/dL Ferritin (30.0-300.0) ng/mL AST 65 H (5-40) units/L ALT 132 H (7-56) units/L Lactate Dehydrogenase 288 H (91-180) units/L C-Reactive Protein 1.40 H (0.00-1.30) mg/dL Total Protein 5.7 L (6.3-8.2) g/dL Albumin 2.4 L (3.9-5) g/dL 11/26/20 Range/Units 06:04 WBC 12.4 H (4.5-11.0) K/mm3 Seg Neuts % (Manual) 98.0 H (40.0-70.0) % Lymphocytes % (Manual) 1.0 L (13.4-35.0) % Seg Neutrophils # Man 12.2 H (1.8-7.7) K/mm3 Lymphocytes # (Manual) 0.1 L (1.2-5.4) K/mm3 D-Dimer (0-234) ng/mlDDU Carbon Dioxide (22-30) mmol/L BUN (9-20) mg/dL Creatinine (0.8-1.3) mg/dL Glucose (75-100) mg/dL POC Glucose (70-105) mg/dL Calcium (8.4-10.2) mg/dL Ferritin (30.0-300.0) ng/mL AST (5-40) units/L ALT (7-56) units/L Lactate Dehydrogenase (91-180) units/L C-Reactive Protein (0.00-1.30) mg/dL Total Protein (6.3-8.2) g/dL Albumin (3.9-5) g/dL
[2020-11-26] MEDS: INSULIN GLARGINE 100 UNITS/ML SUB-Q SCH (21:41)
[2020-11-27] MEDS: fentaNYL DRIP Premix 2,000 MCG/100 ML BAG IV SCH ×4 (00:31→21:08)
[2020-11-27] MEDS: INSULIN LISPRO 100 UNIT/ML SUB-Q SCH ×4 (06:44→18:17)
[2020-11-27] MEDS: MINERAL OIL/PETROLATUM, WHITE OPHTH OINT 3.5 GM OU SCH ×3 (06:44→18:17)
[2020-11-27] MEDS: methylPREDNISolone Sod Succinate 125 MG/2 ML INJ IV SCH ×3 (06:45→18:17)
[2020-11-27] MEDS: MIDAZOLAM 100 MG in SODIUM CHLORIDE 0.9% 80 ML IV SCH (07:19)
[2020-11-27 07:50] LABS: Hematocrit 41.3 % (35.5-45.6); Hemoglobin 13.6 gm/dl (11.8-15.2); Mean Corpuscular HGB Conc 33 % (32-34); Mean Corpuscular Volume 90 fl (84-94); Platelet Count 262 K/mm3 (140-440); Red Blood Count 4.58 M/mm3 (3.65-5.03); Red Cell Distribution Width 14.2 % (13.2-15.2)
[2020-11-27 07:51] LABS: Alanine Aminotransferase 110 units/L (7-56); Albumin 2.4 g/dL (3.9-5); Blood Urea Nitrogen 34 mg/dL (9-20); Calcium 7.9 mg/dL (8.4-10.2); Hemolysis Index 4
[2020-11-27 07:52] LABS: Basophils % (Auto) 0.1 % (0.0-1.8); Lymphocytes # (Auto) 0.3 K/mm3 (1.2-5.4); Monocytes # (Auto) 0.7 K/mm3 (0.0-0.8); Monocytes % (Auto) 5.2 % (0.0-7.3)
--- NOTE | 2020-11-27 08:00 | Progress Note ---
Assessment and Plan Assessment and plan: 59-year-old female presents with shortness of breath cough fever weakness. "1 to 2 days. Patient has severe hypoxia per EMS. Her saturations are in the low 80s. With all oxygen and nonrebreather came down to low 90s. Patient denies any past medical history. Exposure to coronavirus present. Does not have a primary care physician. 2/1: Patient continues on BiPAP throughout the night. Labs are remarkable for hypoxia with improving renal function but lactic acidosis without fever. CTA has been ordered to rule out pulmonary embolism. I agree with increasing enoxaparin to twice daily full dose for empiric treatment of pulmonary embolism. Will obtain ID consultation on further evaluation for possible underlying pneumonia versus COVID-19. We will also obtain echocardiogram for evaluation. Will discontinue fluids at this time. 2/2; Continue supportive care, Patient remains with very guarded prognosis, remains on BiPAP, continues on Remdesivir, and steroids. Will continue antic oagulation, unable to get CTA Chest due to patients unstable clinical status. Will adjust insulin for better blood glucose 2/3: Continues on BIPAP, no clear improvement at this time. Will continue st eroids therapy Remdesivir and also Full anticoagulation at this time. Will update family. Discussed with Reagent Tender. 2/4: Taking a break from the BiPAP on high flow and nonrebreather 100% with satu ration of 90% becomes hypoxic with any movement. Reagent Tender input noted will get a dose of Lasix today. Will await a discussion with ID for possibly increasing steroid. I updated Patient's Cousin, Tayla Esquivel who is the emergency contact lens assistant. Blood sugar remains fluctuating secondary to steriods, Encouraged Prone positioning. Noted with mild hyponatremia we will continue to monitor and manage 2/5: Continue supportive care wean oxygen as tolerated prognosis remains guarded. Encouraged to progress as tolerated. Awaiting labs today. Discussed with nursing staff and patient at bedside. 2/6: Discontinued Dexamethasone as Solumedrol started secondary to increased oxygen demand. Will give additional insulin for better control. Continue oxygen support patient still on high flow. Prognosis still guarded 2/7: Patient was intubated and placed on mechanical ventilation. Continue current medication. Will check a.m. labs today. Noted still with hypotension. Doubt septic shock at this time as patient has no new fever. Will adjust insulin for better blood sugar control. 11/23: Patient admitted with COVID-19 despite all efforts patient remains severely hypoxic and now is intubated. Reagent Tender input noted. Blood pressure marginal at this time. Very poor prognosis. Continue Solu-Medrol. 11/24. Patient remains very hypoxic. Blood pressure borderline. Plan for initiation of paralytic agents as per electromechanisms design drafter. Patient may need to be transferred if no improvement. 11/26. Off paralytics. Remains intubated. On steroids. Prognosis is poor. Problems (1) Acute respiratory failure with hypoxia 11/17 COVID 19 pneumonia Patient remains fully dependent on mechanical ventilatory support Reagent Tender on board On solumedrol ID on board Prognosis is poor The high probability of a clinically significant, sudden or life threatening deterioration of the [pulmonary] system(s) required my full and direct attention, intervention and personal management. The aggregate critical care time was [35] minutes. This time is in addition to time spent performing reported procedures but includes the following: [X] Data Review and interpretation [X] Patient assessment and monitoring of vital signs [X] Documentation [X] Medication orders and management History Interval history: Remains fully dependent on ventilator Hospitalist Physical - Physical exam Narrative exam: VITAL SIGNS: Reviewed. GENERAL: Sedated and intubated HEAD: No signs of head trauma. EYES: Pupils are equal. NECK: No adenopathy, no JVD. CHEST: Chest with diminished breath sounds bilaterally. No wheezes, rales, or rhonchi. CARDIAC: normal S1 and S2, without murmurs, gallops, or rubs. ABDOMEN: Soft, non tender and non distended. No rebound or guarding, and no masses palpated. Bowel Sounds normal. MUSCULOSKELETAL: No edema NEUROLOGIC EXAM: Sedated SKIN: No obvious lesions - Constitutional Vitals: Temp Pulse Resp BP Pulse Ox 97.9 F 69 14 103/64 94 11/27/20 07:00 11/27/20 06:00 11/27/20 06:00 11/27/20 06:00 11/27/20 06:00 HEART Score - HEART Score Troponin: Troponin T < 0.010 ng/mL (0.00-0.029) 11/22/20 Unknown Results - Labs CBC & Chem 7: 11/27/20 06:25 11/27/20 06:25 Labs: Laboratory Last Values WBC 13.8 K/mm3 (4.5-11.0) H 11/27/20 06:25 RBC 4.58 M/mm3 (3.65-5.03) 11/27/20 06:25 Hgb 13.6 gm/dl (11.8-15.2) 11/27/20 06:25 Hct 41.3 % (35.5-45.6) 11/27/20 06:25 MCV 90 fl (84-94) 11/27/20 06:25 MCH 30 pg (28-32) 11/27/20 06:25 MCHC 33 % (32-34) 11/27/20 06:25 RDW 14.2 % (13.2-15.2) 11/27/20 06:25 Plt Count 262 K/mm3 (140-440) 11/27/20 06:25 Lymph % (Auto) 2.0 % (13.4-35.0) L 11/27/20 06:25 Whiteside % (Auto) 5.2 % (0.0-7.3) 11/27/20 06:25 Eos % (Auto) 0.0 % (0.0-4.3) 11/27/20 06:25 Baso % (Auto) 0.1 % (0.0-1.8) 11/27/20 06:25 Lymph # (Auto) 0.3 K/mm3 (1.2-5.4) L 11/27/20 06:25 Whiteside # (Auto) 0.7 K/mm3 (0.0-0.8) 11/27/20 06:25 Eos # (Auto) 0.0 K/mm3 (0.0-0.4) 11/27/20 06:25 Baso # (Auto) 0.0 K/mm3 (0.0-0.1) 11/27/20 06:25 Add Manual Diff Complete 11/26/20 06:04 Total Counted 100 11/26/20 06:04 Seg Neutrophils % Felting Machine Operator Helper 11/27/20 06:25 Seg Neuts % (Manual) 98.0 % (40.0-70.0) H 11/26/20 06:04 Lymphocytes % (Manual) 1.0 % (13.4-35.0) L 11/26/20 06:04 Monocytes % (Manual) 1.0 % (0.0-7.3) 11/26/20 06:04 Nucleated RBC % Not Reportable 11/26/20 06:04 Seg Neutrophils # 12.7 K/mm3 (1.8-7.7) H 11/27/20 06:25 Seg Neutrophils # Man 12.2 K/mm3 (1.8-7.7) H 11/26/20 06:04 Band Neutrophils # 0.0 K/mm3 11/26/20 06:04 Lymphocytes # (Manual) 0.1 K/mm3 (1.2-5.4) L 11/26/20 06:04 Abs React Lymphs (Man) 0.0 K/mm3 11/26/20 06:04 Monocytes # (Manual) 0.1 K/mm3 (0.0-0.8) 11/26/20 06:04 Eosinophils # (Manual) 0.0 K/mm3 (0.0-0.4) 11/26/20 06:04 Basophils # (Manual) 0.0 K/mm3 (0.0-0.1) 11/26/20 06:04 Metamyelocytes # 0.0 K/mm3 11/26/20 06:04 Myelocytes # 0.0 K/mm3 11/26/20 06:04 Promyelocytes # 0.0 K/mm3 11/26/20 06:04 Blast Cells # 0.0 K/mm3 11/26/20 06:04 WBC Morphology Not Reportable 11/26/20 06:04 Hypersegmented Neuts Not Reportable 11/26/20 06:04 Hyposegmented Neuts Not Reportable 11/26/20 06:04 Hypogranular Neuts Not Reportable 11/26/20 06:04 Smudge Cells Not Reportable 11/26/20 06:04 Toxic Granulation Not Reportable 11/26/20 06:04 Toxic Vacuolation Not Reportable 11/26/20 06:04 Dohle Bodies Not Reportable 11/26/20 06:04 Pelger-Huet Anomaly Not Reportable 11/26/20 06:04 Tony Rods Not Reportable 11/26/20 06:04 Platelet Estimate Consistent w auto 11/26/20 06:04 Clumped Platelets Not Reportable 11/26/20 06:04 Plt Clumps, EDTA Not Reportable 11/26/20 06:04 Large Platelets Not Reportable 11/26/20 06:04 Giant Platelets Not Reportable 11/26/20 06:04 Platelet Satelliting Not Reportable 11/26/20 06:04 Plt Morphology Comment Not Reportable 11/26/20 06:04 RBC Morphology Normal 11/26/20 06:04 Dimorphic RBCs Not Reportable 11/26/20 06:04 Polychromasia Not Reportable 11/26/20 06:04 Hypochromasia Not Reportable 11/26/20 06:04 Poikilocytosis Not Reportable 11/26/20 06:04 Anisocytosis Not Reportable 11/26/20 06:04 Microcytosis Not Reportable 11/26/20 06:04 Macrocytosis Not Reportable 11/26/20 06:04 Spherocytes Not Reportable 11/26/20 06:04 Pappenheimer Bodies Not Reportable 11/26/20 06:04 Sickle Cells Not Reportable 11/26/20 06:04 Target Cells Not Reportable 11/26/20 06:04 Tear Drop Cells Not Reportable 11/26/20 06:04 Ovalocytes Not Reportable 11/26/20 06:04 Helmet Cells Not Reportable 11/26/20 06:04 [place]i Bodies Not Reportable 11/26/20 06:04 [place] Rings Not Reportable 11/26/20 06:04 Henrry Cells Not Reportable 11/26/20 06:04 Bite Cells Not Reportable 11/26/20 06:04 Crenated Cell Not Reportable 11/26/20 06:04 Elliptocytes Not Reportable 11/26/20 06:04 Acanthocytes (Spur) Not Reportable 11/26/20 06:04 Rouleaux Not Reportable 11/26/20 06:04 Hemoglobin C Crystals Not Reportable 11/26/20 06:04 Schistocytes Not Reportable 11/26/20 06:04 Malaria parasites Not Reportable 11/26/20 06:04 Yovani Bodies Not Reportable 11/26/20 06:04 Hem Pathologist Commnt No 11/26/20 06:04 D-Dimer 926.11 ng/mlDDU (0-234) H 11/26/20 06:04 ABG pH 7.387 (7.320-7.450) 11/27/20 04:46 POC ABG pCO2 63.0 mmHg (32.0-48.0) H 11/27/20 04:46 POC ABG pO2 53.6 mmHg (83-108) L 11/27/20 04:46 POC ABG HCO3 37.0 11/27/20 04:46 POC ABG Base Excess 9.4 11/27/20 04:46 ABG Hemoglobin 14.5 (12.0-17.5) 11/27/20 04:46 ABG Oxyhemoglobin 87.8 (94-98) L 11/27/20 04:46 ABG Methemoglobin 0.3 (0.0-1.5) 11/27/20 04:46 ABG Sodium 115.4 mmol/L (136.0-145.0) L 11/27/20 04:46 ABG Potassium 4.2 mmol/L (3.40-4.50) 11/27/20 04:46 ABG Chloride 100.0 mmol/L (98-107) 11/27/20 04:46 ABG Glucose 219 mg/dL (65-95) H 11/27/20 04:46 Carboxyhemoglobin 1.4 (0.5-1.5) 11/27/20 04:46 FiO2 80.0 11/27/20 04:46 Sodium 142 mmol/L (137-145) 11/27/20 06:25 Potassium 4.4 mmol/L (3.6-5.0) 11/27/20 06:25 Chloride 99.7 mmol/L (98-107) 11/27/20 06:25 Carbon Dioxide 38 mmol/L (22-30) H 11/27/20 06:25 Anion Gap 9 mmol/L 11/27/20 06:25 BUN 34 mg/dL (9-20) H 11/27/20 06:25 Creatinine 0.5 mg/dL (0.8-1.3) L 11/26/20 04:00 Estimated GFR > 60 ml/min 11/26/20 04:00 BUN/Creatinine Ratio 60 % 11/26/20 04:00 Glucose 243 mg/dL (75-100) H 11/27/20 06:25 POC Glucose 210 mg/dL (70-105) H 11/26/20 23:41 Hemoglobin A1c 11.7 % (4-6) H 11/16/20 05:29 Lactic Acid 2.60 mmol/L (0.7-2.0) H* 11/16/20 05:29 Calcium 7.9 mg/dL (8.4-10.2) L 11/27/20 06:25 Ferritin 778.8 ng/mL (30.0-300.0) H 11/26/20 04:00 Total Bilirubin 0.60 mg/dL (0.1-1.2) 11/27/20 06:25 AST 50 units/L (5-40) H 11/27/20 06:25 ALT 110 units/L (7-56) H 11/27/20 06:25 Alkaline Phosphatase 124 units/L (35-129) 11/27/20 06:25 Lactate Dehydrogenase 288 units/L (91-180) H 11/26/20 04:00 Troponin T < 0.010 ng/mL (0.00-0.029) 11/22/20 Unknown C-Reactive Protein 1.40 mg/dL (0.00-1.30) H 11/26/20 04:00 NT-Pro-B Natriuret Pep 107.2 pg/mL (0-900) 11/17/20 10:21 Total Protein 6.1 g/dL (6.3-8.2) L 11/27/20 06:25 Albumin 2.4 g/dL (3.9-5) L 11/27/20 06:25 Albumin/Globulin Ratio 0.6 % 11/27/20 06:25 Procalcitonin 0.51 ng/mL (<0.15) 11/15/20 10:39 Arterial Blood Glucose 219 mg/dL (65-95) H 11/27/20 04:46 Arterial Blood Ionized Calcium 4.6 mg/dL (4.6-5.3) 11/27/20 04:46 Urine Color Faustina (Yellow) 11/16/20 01:45 Urine Turbidity Slightly-cloudy (Clear) 11/16/20 01:45 Urine pH 6.0 (5.0-7.0) 11/16/20 01:45 Ur Specific [place] 1.037 (1.003-1.030) H 11/16/20 01:45 Urine Protein 30 mg/dl mg/dL (Negative) 11/16/20 01:45 Urine Glucose (UA) >=500 mg/dL (Negative) 11/16/20 01:45 Urine Ketones 20 mg/dL (Negative) 11/16/20 01:45 Urine Blood Neg (Negative) 11/16/20 01:45 Urine Nitrite Neg (Negative) 11/16/20 01:45 Urine Bilirubin Neg (Negative) 11/16/20 01:45 Urine Urobilinogen 2.0 mg/dL (<2.0) 11/16/20 01:45 Ur Leukocyte Esterase Neg (Negative) 11/16/20 01:45 Urine WBC (Auto) 2.0 /HPF (0.0-6.0) 11/16/20 01:45 Urine RBC (Auto) 1.0 /HPF (0.0-6.0) 11/16/20 01:45 Urine Bacteria (Auto) 1+ /HPF (Negative) 11/16/20 01:45 Urine Mucus 3+ /HPF 11/16/20 01:45 Coronavirus (PCR) Positive (Negative) A 11/16/20 Unknown Microbiology: Microbiology 11/21/20 23:49 Tracheal Aspirate Sputum Culture - Preliminary Staphylococcus Aureus - Diagnostic Impressions Diagnostic Impressions: Echocardiogram 11/16/20 10:34 Transthoracic Echocardiogram Indication: Shortness of breath-COVID BP: 108/77 HR: 92 Conclusions *Global left ventricular systolic function is normal. *The estimated ejection fraction is 60-65%. *Mild to moderate concentric left ventricular hypertrophy is observed. *There is trace of mitral regurgitation. *There is mild to moderate tricuspid regurgitation. *There is evidence of mild pulmonary hypertension. *The right ventricular systolic pressure is calculated at 31 mmHg. Findings Left Ventricle: The left ventricular chamber size is normal. Mild to moderate concentric left ventricular hypertrophy is observed. Global left ventricular systolic function is normal. The estimated ejection fraction is 60-65%. Left Atrium: The left atrial chamber size is normal. Right Ventricle: The right ventricular cavity size is normal. The right ventricular global systolic function is normal. Right Atrium: The right atrial cavity size is normal. Aortic Valve: The aortic valve is trileaflet. There is no evidence of aortic regurgitation. There is no evidence of aortic stenosis. Mitral Valve: The mitral valve leaflets appear normal. There is trace of mitral regurgitation. There is no evidence of mitral stenosis. Tricuspid Valve: The tricuspid valve leaflets are normal. There is mild to moderate tricuspid regurgitation. The right ventricular systolic pressure is calculated at 31 mmHg. There is evidence of mild pulmonary hypertension. Pulmonic Valve: There is trace pulmonic regurgitation. Pericardium: There is no pericardial effusion. Aorta: There is no dilatation of the ascending aorta. There is no dilatation of the aortic root. Venous: The inferior vena cava appears normal in size. Measurements Chambers 2D Name Value Normal Range IVSd (2D) 0.81 cm (0.6 - 1.1) LVPWd (2D) 0.79 cm (0.6 - 1.1) LVIDd (2D) 4.22 cm (3.7 - 5.6) LVIDs (2D) 3.1 cm (2 - 3.8) LV FS (2D) 26.71 % - EF Teichholz (2D) 52.55 % - Ao root diameter (2D) 3.34 cm (2 - 3.7) Volumes/Mass Name Value Normal Range LA ESV SP 4CH (A/L) 10.87 ml - LA ESV SP 2CH (A/L) 18.74 ml - LA ESV BP (A/L) 16.38 ml - LA ESV BP (A/L) index 8.62 ml/m2 - LA ESV SP 4CH (MOD) 10.32 ml - LA ESV SP 2CH (MOD) 17.66 ml - LA ESV BP (MOD) 15.12 ml - LA ESV BP (MOD) index 7.96 ml/m2 - Diastolic/Systolic Function Name Value Normal Range MV E-wave Vmax 0.76 m/sec - MV deceleration time 133.63 msec - MV A-wave Vmax 1.1 m/sec - MV E:A ratio 0.69 ratio - Aortic Valve Name Value Normal Range AV Vmax 1.44 m/sec - AV VTI 22.94 cm - AV peak gradient 8.33 mmHg - AV mean gradient 4.73 mmHg - LVOT diameter 2.2 cm - LVOT Vmax 1.04 m/sec - LVOT VTI 18.88 cm - LVOT peak gradient 4.34 mmHg - LVOT mean gradient 2.31 mmHg - SV LVOT 72.05 ml - EVANGELISTA (continuity Vmax) 2.75 cm2 - EVANGELISTA (continuity VTI) 3.14 cm2 - Tricuspid Valve Name Value Normal Range TR Vmax 2.64 m/sec - TR peak gradient 28 mmHg - RAP 3 mmHg - RVSP 31 mmHg - Gupat/IV: Voiding Method Indwelling Catheter IV Catheter Type [Left Peripheral IV Antecubital] Active Medications - Current Medications Current Medications: Generic Name Dose Route Start Last Admin Trade Name Freq PRN Reason Stop Dose Admin Acetaminophen 650 mg 11/15/20 23:55 11/18/20 22:19 Acetaminophen 325 Mg Tab PO 650 mg Q4H PRN Administration Pain MILD(1-3)/Fever >100.5/BUTTS Lipase/Protease/Amylase 1 each 11/23/20 11:53 Lipase 10,500/Protease 25,000/Amylase 43,750 (Units) Dr Cap FEEDTUBE PRN PRN For Clogged Feeding Tube Enoxaparin Sodium 80 mg 11/16/20 10:00 11/26/20 21:24 Enoxaparin 80 Mg/0.8 Ml Inj SUB-Q 80 mg Q12HR RAEANN Administration Famotidine 20 mg 11/22/20 22:00 11/26/20 21:24 Famotidine 20 Mg/2 Ml Inj IV 20 mg BID RAEANN Administration Fentanyl 50 mcg 11/21/20 21:53 Fentanyl 100 Mcg/2 Ml Inj IV Q10MIN PRN ANALGESIA Hydrophilic Ointment 1 applic 11/21/20 21:53 Lip Therapy Vaseline TP Q2HR PRN Dry Lips Fentanyl Citrate 2,000 mcg in 100 mls @ 3.625 mls/hr 11/21/20 22:00 11/27/20 07:16 Fentanyl Drip Premix IV 4 mcg/kg/hr TITR RAEANN 14.5 mls/hr Administration Protocol 1 MCG/KG/HR Midazolam HCl 100 mg/ Sodium 100 mls @ 2 mls/hr 11/21/20 22:00 11/27/20 07:19 Chloride IV 5 mg/hr TITR RAEANN 5 mls/hr Administration Protocol 2 MG/HR Norepinephrine 4 mg in 250 mls @ 7.5 mls/hr 11/22/20 17:00 Levophed Drip 4 Mg/Ns 250 Ml IV TITR RAEANN Protocol 2 MCG/MIN Insulin Glargine 30 units 11/21/20 22:00 11/26/20 21:41 Insulin Glargine 100 Units/Ml SUB-Q 30 units QHS RAEANN Administration Insulin Human Lispro 0 unit 11/22/20 06:00 11/27/20 06:44 Insulin Lispro 100 Unit/Ml SUB-Q 4 unit Q6HR RAEANN Administration Protocol Methylprednisolone Sodium Succinate 60 mg 11/20/20 12:00 11/27/20 06:45 Methylprednisolone Sod Succinate 125 Mg/2 Ml Inj IV 60 mg Q6HR RAEANN Administration Metoclopramide HCl 10 mg 11/15/20 23:55 Metoclopramide 10 Mg/2 Ml Inj IV Q6H PRN Nausea And Vomiting Midazolam HCl 2 mg 11/21/20 21:53 Midazolam 2 Mg/2 Ml Inj IV Q10MIN PRN Sedation Multi-Ingred Cream/Lotion/Oil/Oint 1 applic 11/21/20 21:53 Mineral Oil/Petrolatum, White Ophth Oint 3.5 Gm OU Q4HR PRN Dry Eye(s) Multi-Ingred Cream/Lotion/Oil/Oint 1 applic 11/24/20 11:00 11/27/20 06:44 Mineral Oil/Petrolatum, White Ophth Oint 3.5 Gm OU 1 applic Q6H RAEANN Administration Ondansetron HCl 4 mg 11/15/20 23:55 Ondansetron 4 Mg/2 Ml Inj IV Q8H PRN Nausea And Vomiting Simple Syrup 15 ml 11/23/20 11:53 Simple Syrup 15 Ml FEEDTUBE PRN PRN Hypoglycemia Simple Syrup 30 ml 11/23/20 11:53 Simple Syrup 15 Ml FEEDTUBE PRN PRN Hypoglycemia Sodium Bicarbonate 325 mg 11/23/20 11:53 Sodium Bicarbonate 325 Mg Tab FEEDTUBE PRN PRN For Clogged Feeding Tube Sodium Chloride 10 ml 11/16/20 10:00 11/26/20 21:24 Sodium Chloride 0.9% 10 Ml Flush Syringe IV 10 ml BID RAEANN Administration Sodium Chloride 10 ml 11/15/20 23:55 Sodium Chloride 0.9% 10 Ml Flush Syringe IV PRN PRN LINE FLUSH Nutrition/Malnutrition Assess - Dietary Evaluation Nutrition/Malnutrition Findings: Nutrition Notes Start: 11/20/20 12:03 Freq: Status: Active Protocol: Document 11/26/20 10:59 KIT (Rec: 11/26/20 11:25 KIT [id number]) Co-Sign 11/26/20 10:59 NHALL Nutrition Notes Initial or Follow up Reassessment Current Diagnosis Diabetes,Sepsis,Respiratory Failure Other Pertinent Diagnosis Bilat pneu, COVID-19 (+) Current Diet Glucerna 1.2 at 100 ml/hr when not proned, 20 ml when proned Labs/Tests BUN 51 Cr 3.4 BG 189 Pertinent Medications Levophed Height 5 ft 6 in Weight 72.5 kg Usual Body Weight 80.5 kg [place] Body Weight (kg) 64.54 BMI 25.7 Weight Status Overweight Subjective/Other Information F/u TF tolerance. Pt coded blue this AM and TF on hold for now. Percent of energy/protein needs met: 0%/0% Burn Absent Trauma Absent GI Symptoms None Difficulty In Swallowing,Chewing Current % PO Negligible Minimum of two criteria Yes Energy Intake (severe) < or equal to 50% Estimated Energy Requirement > or equal to 5 days Interpretation of Weight Loss (severe) >2% in 1 week #3 Nutrition Diagnosis Inadequate oral intake Diagnosis Progress(for reassessment Continues documentation) #2 Nutrition Diagnosis Malnutrition Diagnosis Progress(for reassessment Continues documentation) #1 Nutrition Diagnosis Unintended weight loss Diagnosis Progress(for reassessment Continues documentation) Is patient on ventilator? Yes Is Patient Ambulatory and/or Out of Bed No REE-([facility]-confined to bed) 9900.004 Calculation Used for Recommendations [facility] Additional Notes Protein needs 1.2-2g/k-145g/day Fluid 1ml/kcal or per MD Nutrition Intervention Change Diet Order: Continue TF if medically able Nutrition Support: Supine (12h): Glucerna 1.2 at 100ml/hr with flush of 100 ml q4h. Prone (12h): Glucerna 1.2 at 20 ml/hr with flush of 50 ml q4h. Kcal 1,728 Protein (gm) 86 Fluid (mL) 1,159 Goal #1 TF tolerance Goal #2 Meet at least 75% of energy and protein needs via TF Anticipated Discharge Needs: Unknown at this time Follow-Up By: 12/01/20 Additional Comments F/u TF re-start, vent status, and proning regimen
[2020-11-27 08:10] LABS: BUN/Creatinine Ratio 85
[2020-11-27] MEDS: ENOXAPARIN 80 MG/0.8 ML INJ SUB-Q SCH ×2 (08:59→21:08)
[2020-11-27] MEDS: FAMOTIDINE 20 MG/2 ML INJ IV SCH ×2 (09:00→21:09)
--- NOTE | 2020-11-27 09:26 | XRay Report ---
CHEST 1 VIEW 11/27/2020 8:16 AM INDICATION / CLINICAL INFORMATION: follow up respiratory failure. COMPARISON: 11/26/2020 FINDINGS: SUPPORT DEVICES: Stable, satisfactory device positioning. HEART / MEDIASTINUM: Interval development of pneumomediastinum. LUNGS / PLEURA: Stable diffuse bilateral pulmonary opacities. No pneumothorax. ADDITIONAL FINDINGS: Increasing subcutaneous air in the chest wall neck. IMPRESSION: 1. Interval development of pneumomediastinum and increasing subcutaneous air since the prior study. N o appreciable pneumothorax. Signer Name: Salvador Horton MD Signed: 11/27/2020 9:22 AM Workstation Name: [id number]
[2020-11-27 09:35] LABS: Total Cells Counted 100
[2020-11-27 09:36] LABS: Platelet Estimate Consistent w Auto; RBC Morphology Normal
--- NOTE | 2020-11-27 10:42 | Progress Note ---
Assessment and Plan 59 y/o male with acute respiratory failure, abnormal CXR and abnormal lab studies. 11/27/20: Spoke with surgery who have agreed to evaluate and placed chest tube on either right or left side pending CXR reading. Will monitor for 36-48 hours and if no resolution, will need chest tube placed on opposite side as well. Once placed, will likely paralyze again but hold on proning for now. Guarded prognosis. 11/26/20: Paralytics are off. Continue current level of sedation. Will prone for 12 hours today and repeat ABG in the am. Continue lung protective strategy. Guarded prognosis. 11/25/20: Prone again to 16 hours, will prone at 12-12:30. Continue paralytics for 24 more hours. Discussed the idea of permissive hypercapnea again today and as long as pH is above 7.2 no changes should be made to TV and or RR without discussing with physician. Continue to monitor urine output, guarded prognosis. Hold on lasix therapy today. 11/24/20: Prone again today. Will try 48 hours of paralyzing the patient to see if this will help with oxygenation. Will speak with RT's about permissive hypercapnea and that pH's of 7.2 and greater are ok. Continue high doses steroids. Prognosis is still very very guarded. If not improvement with paralytics, will attempt transfer. 11/23/20: Prone again today for 12 hours. Continue High Dose steroids. Hold on lasix given marginal BP's. Prognosis is very very guarded to poor. Will continue all supportive measures. If not able to wean from 100%, will attempt transfer for ECMO. 11/20/20: WIll change to solumedrol 60q6 today. Hold on lasix today. Given his increasing oxygen requirement, will likely end up intubated. OVerall prognosis is very poor. 11/19/20: lasix 40mg IV x1 today. Will speak with ID but may consider increasing steroids to see if this will help with oxygenation. Continue Remdesivir. Prognosis remains guarded. 11/18/20: Continue bipap, goal is to attempt to prevent prolong intubation for as long as possible. Lasix again today. Steroids and Remdesivir. Guarded Prognosis. 11/17/20: Continue bipap therapy. Monitor mental state. High risk for Intubation. Continue BID anticoagulation. Prone if able. BNP was elevated but not grossly elevated. Will still give lasix with hopes of achieving net negative state. STeroids and remdesivir. Overall prognosis is guarded, extremely guarded. 1. Pulm- Agree with concern for covid. Agree with empiric abx but procal is only mildly elevated. Await cultures. Continue bipap therapy for now but will need to monitor closely. [facility] has ordered CTA, but I spoke with pharmacy and we will empirically treat with BID lovenox therapy. COntinue empiric steroid therapy for COVID until studies back. Not sure that he will be able to prone on bipap therapy. Monitor volume status and run as dry as possible. 2. Renal-normal function but all electrolytes abnormal. HYponatremia and H ypochloremia volume up vs volume down. Sent BNP. Would suggest obtaning echo as well. Not sure what to make of elevated lactate unless that is from increased work of breathing or damage to other tissue unknown. May need to check LFT's and Coags as well. 3. Guarded Prognosis. CCT 31 minutes. Subjective Date of service: 11/27/20 Principal diagnosis: COVID-19 Interval history: Down to 80% but PaO2 in the low 50's this am. Worsening Pneumomediastinum. All other vitals are stable. Objective Vital Signs - 12hr 11/26/20 11/26/20 11/26/20 22:45 23:00 23:15 Temperature Pulse Rate 72 67 66 Pulse Rate [ From Monitor] Respiratory 30 H 27 H 27 H Rate Blood Pressure 102/73 97/68 112/72 O2 Sat by Pulse 100 100 100 Oximetry 11/26/20 11/26/20 11/26/20 23:21 23:30 23:45 Temperature Pulse Rate 66 70 70 Pulse Rate [ From Monitor] Respiratory 30 H 18 Rate Blood Pressure 112/72 110/69 107/68 O2 Sat by Pulse 99 100 100 Oximetry 11/26/20 11/27/20 11/27/20 23:53 00:00 00:15 Temperature 98.9 F Pulse Rate 67 64 Pulse Rate [ 72 From Monitor] Respiratory 30 H 29 H Rate Blood Pressure 101/71 102/67 O2 Sat by Pulse 100 100 Oximetry 11/27/20 11/27/20 11/27/20 00:30 00:45 01:00 Temperature Pulse Rate 66 64 67 Pulse Rate [ From Monitor] Respiratory 20 30 H 22 Rate Blood Pressure 113/67 107/70 105/65 O2 Sat by Pulse 99 100 100 Oximetry 11/27/20 11/27/20 11/27/20 01:15 01:30 01:45 Temperature Pulse Rate 66 66 62 Pulse Rate [ From Monitor] Respiratory 17 26 H 30 H Rate Blood Pressure 105/65 96/70 110/71 O2 Sat by Pulse 100 100 100 Oximetry 11/27/20 11/27/20 11/27/20 02:00 02:15 02:30 Temperature Pulse Rate 65 66 67 Pulse Rate [ From Monitor] Respiratory 24 17 24 Rate Blood Pressure 107/70 115/64 104/69 O2 Sat by Pulse 100 100 100 Oximetry 11/27/20 11/27/20 11/27/20 02:45 03:00 03:15 Temperature Pulse Rate 67 70 68 Pulse Rate [ From Monitor] Respiratory 21 29 H 19 Rate Blood Pressure 105/70 105/70 107/65 O2 Sat by Pulse 100 96 Oximetry 11/27/20 11/27/20 11/27/20 03:27 03:30 03:38 Temperature 98.9 F Pulse Rate 69 69 Pulse Rate [ From Monitor] Respiratory 14 Rate Blood Pressure 109/70 O2 Sat by Pulse 95 69 L Oximetry 11/27/20 11/27/20 11/27/20 03:45 04:00 04:15 Temperature Pulse Rate 66 67 68 Pulse Rate [ 70 From Monitor] Respiratory 23 15 11 L Rate Blood Pressure 109/65 103/67 105/59 O2 Sat by Pulse 93 94 95 Oximetry 11/27/20 11/27/20 11/27/20 04:30 04:45 05:00 Temperature Pulse Rate 68 65 72 Pulse Rate [ From Monitor] Respiratory 14 15 16 Rate Blood Pressure 111/62 106/65 106/63 O2 Sat by Pulse 94 95 96 Oximetry 11/27/20 11/27/20 11/27/20 05:15 05:30 05:45 Temperature Pulse Rate 70 68 72 Pulse Rate [ From Monitor] Respiratory 10 L 13 14 Rate Blood Pressure 107/61 99/62 106/57 O2 Sat by Pulse 96 95 94 Oximetry 11/27/20 11/27/20 11/27/20 06:00 06:15 06:30 Temperature Pulse Rate 69 69 68 Pulse Rate [ From Monitor] Respiratory 14 11 L 12 Rate Blood Pressure 103/64 107/63 112/62 O2 Sat by Pulse 94 95 93 Oximetry 11/27/20 11/27/20 11/27/20 06:45 07:00 07:15 Temperature 97.9 F Pulse Rate 68 69 69 Pulse Rate [ From Monitor] Respiratory 10 L 12 22 Rate Blood Pressure 108/69 108/68 128/68 O2 Sat by Pulse 95 93 94 Oximetry 11/27/20 11/27/20 11/27/20 07:30 07:45 08:00 Temperature Pulse Rate 71 73 73 Pulse Rate [ 73 From Monitor] Respiratory 14 12 30 H Rate Blood Pressure 108/68 109/69 119/69 O2 Sat by Pulse 95 94 93 Oximetry 11/27/20 11/27/20 11/27/20 08:15 08:30 08:40 Temperature Pulse Rate 74 67 74 Pulse Rate [ From Monitor] Respiratory 13 25 H Rate Blood Pressure 122/70 119/69 130/70 O2 Sat by Pulse 92 93 74 L Oximetry 11/27/20 11/27/20 11/27/20 08:45 09:00 09:15 Temperature Pulse Rate 76 73 73 Pulse Rate [ From Monitor] Respiratory 17 22 13 Rate Blood Pressure 126/64 130/70 128/71 O2 Sat by Pulse 93 94 95 Oximetry 11/27/20 11/27/20 11/27/20 09:30 09:45 10:00 Temperature Pulse Rate 80 75 74 Pulse Rate [ From Monitor] Respiratory 13 13 14 Rate Blood Pressure 136/77 126/68 111/70 O2 Sat by Pulse 96 94 94 Oximetry Constitutional: alert ENT: other (Now intubated) Ascultation: Bilateral: rales, rhonchi Percussion: Bilateral: not dull Cardiovascular: regular rate and rhythm Gastrointestinal: soft, non-tender CBC and BMP: 11/27/20 06:25 11/27/20 06:25 ABG, PT/INR, D-dimer: ABG ABG pH 7.387 (7.320-7.450) 11/27/20 04:46 POC ABG pCO2 63.0 mmHg (32.0-48.0) H 11/27/20 04:46 POC ABG pO2 53.6 mmHg (83-108) L 11/27/20 04:46 POC ABG HCO3 37.0 11/27/20 04:46 PT/INR, D-dimer D-Dimer 926.11 ng/mlDDU (0-234) H 11/26/20 06:04 Abnormal lab findings: Abnormal Labs 11/15/20 11/15/20 11/15/20 10:39 10:39 10:39 WBC 14.3 H RBC 5.17 H Lymph % (Auto) 7.8 L [place] % (Auto) 7.6 H Lymph # (Auto) 1.1 L [place] # (Auto) 1.1 H Baso # (Auto) Seg Neutrophils % 83.3 H Seg Neuts % (Manual) Lymphocytes % (Manual) Seg Neutrophils # 11.9 H Seg Neutrophils # Man Lymphocytes # (Manual) D-Dimer ABG pH POC ABG pCO2 POC ABG pO2 ABG Oxyhemoglobin ABG Sodium ABG Potassium ABG Chloride ABG Glucose Sodium 128 L Chloride 96.0 L Carbon Dioxide BUN Creatinine 0.7 L Glucose 238 H POC Glucose Hemoglobin A1c Lactic Acid 4.10 H* Calcium 7.0 L Ferritin Total Bilirubin 1.40 H AST 49 H ALT 70 H Alkaline Phosphatase Lactate Dehydrogenase 663 H C-Reactive Protein 19.80 H Total Protein Albumin 2.9 L Arterial Blood Glucose Arterial Blood Ionized Calcium Ur Specific [place] Coronavirus (PCR) 11/15/20 11/15/20 11/15/20 10:39 10:39 11:20 WBC RBC Lymph % (Auto) [place] % (Auto) Lymph # (Auto) [place] # (Auto) Baso # (Auto) Seg Neutrophils % Seg Neuts % (Manual) Lymphocytes % (Manual) Seg Neutrophils # Seg Neutrophils # Man Lymphocytes # (Manual) D-Dimer > 95643 H ABG pH POC ABG pCO2 29.9 L POC ABG pO2 137.3 H ABG Oxyhemoglobin ABG Sodium 126.5 L ABG Potassium ABG Chloride ABG Glucose 248 H Sodium Chloride Carbon Dioxide BUN Creatinine Glucose POC Glucose Hemoglobin A1c Lactic Acid Calcium Ferritin 672.8 H Total Bilirubin AST ALT Alkaline Phosphatase Lactate Dehydrogenase C-Reactive Protein Total Protein Albumin Arterial Blood Glucose 248 H Arterial Blood Ionized Calcium 4.1 L Ur Specific [place] Coronavirus (PCR) 11/15/20 11/15/20 11/16/20 13:41 23:41 01:45 WBC RBC Lymph % (Auto) [place] % (Auto) Lymph # (Auto) [place] # (Auto) Baso # (Auto) Seg Neutrophils % Seg Neuts % (Manual) Lymphocytes % (Manual) Seg Neutrophils # Seg Neutrophils # Man Lymphocytes # (Manual) D-Dimer ABG pH POC ABG pCO2 POC ABG pO2 ABG Oxyhemoglobin ABG Sodium ABG Potassium ABG Chloride ABG Glucose Sodium Chloride Carbon Dioxide BUN Creatinine Glucose POC Glucose 284 H Hemoglobin A1c Lactic Acid 2.30 H* Calcium Ferritin Total Bilirubin AST ALT Alkaline Phosphatase Lactate Dehydrogenase C-Reactive Protein Total Protein Albumin Arterial Blood Glucose Arterial Blood Ionized Calcium Ur Specific [place] 1.037 H Coronavirus (PCR) 11/16/20 11/16/20 11/16/20 05:29 05:29 05:29 WBC 12.9 H RBC Lymph % (Auto) 4.5 L [place] % (Auto) Lymph # (Auto) 0.6 L [place] # (Auto) Baso # (Auto) 0.2 H Seg Neutrophils % 89.8 H Seg Neuts % (Manual) Lymphocytes % (Manual) Seg Neutrophils # 11.5 H Seg Neutrophils # Man Lymphocytes # (Manual) D-Dimer ABG pH POC ABG pCO2 POC ABG pO2 ABG Oxyhemoglobin ABG Sodium ABG Potassium ABG Chloride ABG Glucose Sodium 131 L Chloride Carbon Dioxide 21 L BUN 23 H Creatinine 0.6 L Glucose 342 H POC Glucose Hemoglobin A1c Lactic Acid 2.60 H* Calcium 7.0 L Ferritin Total Bilirubin AST ALT Alkaline Phosphatase Lactate Dehydrogenase C-Reactive Protein Total Protein Albumin 2.4 L Arterial Blood Glucose Arterial Blood Ionized Calcium Ur Specific [place] Coronavirus (PCR) 11/16/20 11/16/20 11/16/20 05:29 08:11 12:11 WBC RBC Lymph % (Auto) [place] % (Auto) Lymph # (Auto) [place] # (Auto) Baso # (Auto) Seg Neutrophils % Seg Neuts % (Manual) Lymphocytes % (Manual) Seg Neutrophils # Seg Neutrophils # Man Lymphocytes # (Manual) D-Dimer ABG pH POC ABG pCO2 POC ABG pO2 ABG Oxyhemoglobin ABG Sodium ABG Potassium ABG Chloride ABG Glucose Sodium Chloride Carbon Dioxide BUN Creatinine Glucose POC Glucose 329 H 320 H Hemoglobin A1c 11.7 H Lactic Acid Calcium Ferritin Total Bilirubin AST ALT Alkaline Phosphatase Lactate Dehydrogenase C-Reactive Protein Total Protein Albumin Arterial Blood Glucose Arterial Blood Ionized Calcium Ur Specific [place] Coronavirus (PCR) 11/16/20 11/16/20 11/16/20 16:13 21:29 Unknown WBC RBC Lymph % (Auto) [place] % (Auto) Lymph # (Auto) [place] # (Auto) Baso # (Auto) Seg Neutrophils % Seg Neuts % (Manual) Lymphocytes % (Manual) Seg Neutrophils # Seg Neutrophils # Man Lymphocytes # (Manual) D-Dimer ABG pH POC ABG pCO2 POC ABG pO2 ABG Oxyhemoglobin ABG Sodium ABG Potassium ABG Chloride ABG Glucose Sodium Chloride Carbon Dioxide BUN Creatinine Glucose POC Glucose 257 H 376 H Hemoglobin A1c Lactic Acid Calcium Ferritin Total Bilirubin AST ALT Alkaline Phosphatase Lactate Dehydrogenase C-Reactive Protein Total Protein Albumin Arterial Blood Glucose Arterial Blood Ionized Calcium Ur Specific [place] Coronavirus (PCR) Positive A 11/17/20 11/17/20 11/17/20 07:42 12:07 17:25 WBC RBC Lymph % (Auto) [place] % (Auto) Lymph # (Auto) [place] # (Auto) Baso # (Auto) Seg Neutrophils % Seg Neuts % (Manual) Lymphocytes % (Manual) Seg Neutrophils # Seg Neutrophils # Man Lymphocytes # (Manual) D-Dimer ABG pH POC ABG pCO2 POC ABG pO2 ABG Oxyhemoglobin ABG Sodium ABG Potassium ABG Chloride ABG Glucose Sodium Chloride Carbon Dioxide BUN Creatinine Glucose POC Glucose 231 H 380 H 302 H Hemoglobin A1c Lactic Acid Calcium Ferritin Total Bilirubin AST ALT Alkaline Phosphatase Lactate Dehydrogenase C-Reactive Protein Total Protein Albumin Arterial Blood Glucose Arterial Blood Ionized Calcium Ur Specific [place] Coronavirus (PCR) 11/17/20 11/18/20 11/18/20 21:53 04:25 07:45 WBC RBC Lymph % (Auto) [place] % (Auto) Lymph # (Auto) [place] # (Auto) Baso # (Auto) Seg Neutrophils % Seg Neuts % (Manual) Lymphocytes % (Manual) Seg Neutrophils # Seg Neutrophils # Man Lymphocytes # (Manual) D-Dimer ABG pH POC ABG pCO2 POC ABG pO2 ABG Oxyhemoglobin ABG Sodium ABG Potassium ABG Chloride ABG Glucose Sodium 136 L Chloride Carbon Dioxide BUN 24 H Creatinine 0.6 L Glucose 212 H POC Glucose 293 H 216 H Hemoglobin A1c Lactic Acid Calcium 7.4 L Ferritin Total Bilirubin AST 41 H ALT Alkaline Phosphatase 142 H Lactate Dehydrogenase C-Reactive Protein Total Protein Albumin 2.3 L Arterial Blood Glucose Arterial Blood Ionized Calcium Ur Specific [place] Coronavirus (PCR) 11/18/20 11/18/20 11/18/20 12:28 15:58 21:37 WBC RBC Lymph % (Auto) [place] % (Auto) Lymph # (Auto) [place] # (Auto) Baso # (Auto) Seg Neutrophils % Seg Neuts % (Manual) Lymphocytes % (Manual) Seg Neutrophils # Seg Neutrophils # Man Lymphocytes # (Manual) D-Dimer ABG pH POC ABG pCO2 POC ABG pO2 ABG Oxyhemoglobin ABG Sodium ABG Potassium ABG Chloride ABG Glucose Sodium Chloride Carbon Dioxide BUN Creatinine Glucose POC Glucose 165 H 220 H 311 H Hemoglobin A1c Lactic Acid Calcium Ferritin Total Bilirubin AST ALT Alkaline Phosphatase Lactate Dehydrogenase C-Reactive Protein Total Protein Albumin Arterial Blood Glucose Arterial Blood Ionized Calcium Ur Specific [place] Coronavirus (PCR) 11/19/20 11/19/20 11/19/20 05:35 07:40 12:39 WBC RBC Lymph % (Auto) [place] % (Auto) Lymph # (Auto) [place] # (Auto) Baso # (Auto) Seg Neutrophils % Seg Neuts % (Manual) Lymphocytes % (Manual) Seg Neutrophils # Seg Neutrophils # Man Lymphocytes # (Manual) D-Dimer ABG pH POC ABG pCO2 POC ABG pO2 ABG Oxyhemoglobin ABG Sodium ABG Potassium ABG Chloride ABG Glucose Sodium 132 L Chloride Carbon Dioxide BUN 25 H Creatinine 0.5 L Glucose 179 H POC Glucose 149 H 306 H Hemoglobin A1c Lactic Acid Calcium 7.5 L Ferritin Total Bilirubin AST ALT Alkaline Phosphatase 139 H Lactate Dehydrogenase C-Reactive Protein Total Protein Albumin 2.4 L Arterial Blood Glucose Arterial Blood Ionized Calcium Ur Specific [place] Coronavirus (PCR) 11/19/20 11/19/20 11/20/20 16:17 21:25 08:30 WBC RBC Lymph % (Auto) [place] % (Auto) Lymph # (Auto) [place] # (Auto) Baso # (Auto) Seg Neutrophils % Seg Neuts % (Manual) Lymphocytes % (Manual) Seg Neutrophils # Seg Neutrophils # Man Lymphocytes # (Manual) D-Dimer ABG pH POC ABG pCO2 POC ABG pO2 ABG Oxyhemoglobin ABG Sodium ABG Potassium ABG Chloride ABG Glucose Sodium Chloride Carbon Dioxide BUN Creatinine Glucose POC Glucose 364 H 347 H 141 H Hemoglobin A1c Lactic Acid Calcium Ferritin Total Bilirubin AST ALT Alkaline Phosphatase Lactate Dehydrogenase C-Reactive Protein Total Protein Albumin Arterial Blood Glucose Arterial Blood Ionized Calcium Ur Specific [place] Coronavirus (PCR) 11/20/20 11/20/20 11/20/20 08:50 11:32 16:19 WBC RBC Lymph % (Auto) [place] % (Auto) Lymph # (Auto) [place] # (Auto) Baso # (Auto) Seg Neutrophils % Seg Neuts % (Manual) Lymphocytes % (Manual) Seg Neutrophils # Seg Neutrophils # Man Lymphocytes # (Manual) D-Dimer ABG pH POC ABG pCO2 POC ABG pO2 ABG Oxyhemoglobin ABG Sodium ABG Potassium ABG Chloride ABG Glucose Sodium 132 L Chloride 97.6 L Carbon Dioxide BUN 26 H Creatinine 0.5 L Glucose 201 H POC Glucose 296 H 327 H Hemoglobin A1c Lactic Acid Calcium 7.9 L Ferritin Total Bilirubin AST ALT Alkaline Phosphatase 137 H Lactate Dehydrogenase C-Reactive Protein Total Protein Albumin 2.6 L Arterial Blood Glucose Arterial Blood Ionized Calcium Ur Specific [place] Coronavirus (PCR) 11/20/20 11/21/20 11/21/20 22:09 07:59 13:51 WBC RBC Lymph % (Auto) [place] % (Auto) Lymph # (Auto) [place] # (Auto) Baso # (Auto) Seg Neutrophils % Seg Neuts % (Manual) Lymphocytes % (Manual) Seg Neutrophils # Seg Neutrophils # Man Lymphocytes # (Manual) D-Dimer ABG pH POC ABG pCO2 POC ABG pO2 ABG Oxyhemoglobin ABG Sodium ABG Potassium ABG Chloride ABG Glucose Sodium Chloride Carbon Dioxide BUN Creatinine Glucose POC Glucose 311 H 218 H 304 H Hemoglobin A1c Lactic Acid Calcium Ferritin Total Bilirubin AST ALT Alkaline Phosphatase Lactate Dehydrogenase C-Reactive Protein Total Protein Albumin Arterial Blood Glucose Arterial Blood Ionized Calcium Ur Specific [place] Coronavirus (PCR) 11/21/20 11/21/20 11/21/20 16:09 21:34 23:00 WBC RBC Lymph % (Auto) [place] % (Auto) Lymph # (Auto) [place] # (Auto) Baso # (Auto) Seg Neutrophils % Seg Neuts % (Manual) Lymphocytes % (Manual) Seg Neutrophils # Seg Neutrophils # Man Lymphocytes # (Manual) D-Dimer ABG pH 7.206 L POC ABG pCO2 59.3 H POC ABG pO2 76.7 L ABG Oxyhemoglobin ABG Sodium 133.1 L ABG Potassium ABG Chloride ABG Glucose 320 H Sodium Chloride Carbon Dioxide BUN Creatinine Glucose POC Glucose 239 H 279 H Hemoglobin A1c Lactic Acid Calcium Ferritin Total Bilirubin AST ALT Alkaline Phosphatase Lactate Dehydrogenase C-Reactive Protein Total Protein Albumin Arterial Blood Glucose 320 H Arterial Blood Ionized Calcium Ur Specific [place] Coronavirus (PCR) 11/22/20 11/22/20 11/22/20 04:52 04:52 04:52 WBC RBC Lymph % (Auto) [place] % (Auto) Lymph # (Auto) [place] # (Auto) Baso # (Auto) Seg Neutrophils % Seg Neuts % (Manual) Lymphocytes % (Manual) Seg Neutrophils # Seg Neutrophils # Man Lymphocytes # (Manual) D-Dimer 1858.36 H ABG pH POC ABG pCO2 POC ABG pO2 ABG Oxyhemoglobin ABG Sodium ABG Potassium ABG Chloride ABG Glucose Sodium Chloride Carbon Dioxide BUN Creatinine Glucose POC Glucose Hemoglobin A1c Lactic Acid Calcium Ferritin 734.2 H Total Bilirubin AST ALT Alkaline Phosphatase Lactate Dehydrogenase 404 H C-Reactive Protein 2.80 H Total Protein Albumin Arterial Blood Glucose Arterial Blood Ionized Calcium Ur Specific [place] Coronavirus (PCR) 11/22/20 11/22/20 11/22/20 05:12 05:39 11:50 WBC RBC Lymph % (Auto) [place] % (Auto) Lymph # (Auto) [place] # (Auto) Baso # (Auto) Seg Neutrophils % Seg Neuts % (Manual) Lymphocytes % (Manual) Seg Neutrophils # Seg Neutrophils # Man Lymphocytes # (Manual) D-Dimer ABG pH POC ABG pCO2 POC ABG pO2 51.0 L ABG Oxyhemoglobin ABG Sodium 131.2 L ABG Potassium 4.6 H ABG Chloride ABG Glucose 317 H Sodium Chloride Carbon Dioxide BUN Creatinine Glucose POC Glucose 340 H 417 H Hemoglobin A1c Lactic Acid Calcium Ferritin Total Bilirubin AST ALT Alkaline Phosphatase Lactate Dehydrogenase C-Reactive Protein Total Protein Albumin Arterial Blood Glucose 317 H Arterial Blood Ionized Calcium 4.4 L Ur Specific [place] Coronavirus (PCR) 11/22/20 11/22/20 11/22/20 12:22 12:22 17:10 WBC 14.4 H RBC Lymph % (Auto) [place] % (Auto) Lymph # (Auto) [place] # (Auto) Baso # (Auto) Seg Neutrophils % Seg Neuts % (Manual) 98.0 H Lymphocytes % (Manual) Seg Neutrophils # Seg Neutrophils # Man 14.1 H Lymphocytes # (Manual) 0.0 L D-Dimer ABG pH POC ABG pCO2 POC ABG pO2 ABG Oxyhemoglobin ABG Sodium ABG Potassium ABG Chloride ABG Glucose Sodium 132 L Chloride Carbon Dioxide BUN 36 H Creatinine 0.6 L Glucose 219 H POC Glucose 157 H Hemoglobin A1c Lactic Acid Calcium 7.2 L Ferritin Total Bilirubin AST ALT Alkaline Phosphatase Lactate Dehydrogenase C-Reactive Protein Total Protein Albumin Arterial Blood Glucose Arterial Blood Ionized Calcium Ur Specific [place] Coronavirus (PCR) 11/22/20 11/22/20 11/22/20 18:33 21:44 23:47 WBC RBC Lymph % (Auto) [place] % (Auto) Lymph # (Auto) [place] # (Auto) Baso # (Auto) Seg Neutrophils % Seg Neuts % (Manual) Lymphocytes % (Manual) Seg Neutrophils # Seg Neutrophils # Man Lymphocytes # (Manual) D-Dimer ABG pH POC ABG pCO2 POC ABG pO2 60.8 L ABG Oxyhemoglobin 88.1 L ABG Sodium 135.1 L ABG Potassium ABG Chloride ABG Glucose 141 H Sodium Chloride Carbon Dioxide BUN Creatinine Glucose POC Glucose 117 H 123 H Hemoglobin A1c Lactic Acid Calcium Ferritin Total Bilirubin AST ALT Alkaline Phosphatase Lactate Dehydrogenase C-Reactive Protein Total Protein Albumin Arterial Blood Glucose 141 H Arterial Blood Ionized Calcium Ur Specific [place] Coronavirus (PCR) 11/23/20 11/23/20 11/23/20 04:00 04:00 05:23 WBC 14.4 H RBC Lymph % (Auto) [place] % (Auto) Lymph # (Auto) [place] # (Auto) Baso # (Auto) Seg Neutrophils % Seg Neuts % (Manual) Lymphocytes % (Manual) Seg Neutrophils # Seg Neutrophils # Man Lymphocytes # (Manual) D-Dimer ABG pH POC ABG pCO2 POC ABG pO2 ABG Oxyhemoglobin ABG Sodium ABG Potassium ABG Chloride ABG Glucose Sodium 136 L Chloride Carbon Dioxide BUN 33 H Creatinine 0.6 L Glucose 115 H POC Glucose 173 H Hemoglobin A1c Lactic Acid Calcium 7.1 L Ferritin Total Bilirubin AST 64 H ALT 75 H Alkaline Phosphatase Lactate Dehydrogenase C-Reactive Protein Total Protein 5.9 L D Albumin 2.4 L Arterial Blood Glucose Arterial Blood Ionized Calcium Ur Specific [place] Coronavirus (PCR) 11/23/20 11/23/20 11/23/20 05:40 11:27 17:10 WBC RBC Lymph % (Auto) [place] % (Auto) Lymph # (Auto) [place] # (Auto) Baso # (Auto) Seg Neutrophils % Seg Neuts % (Manual) Lymphocytes % (Manual) Seg Neutrophils # Seg Neutrophils # Man Lymphocytes # (Manual) D-Dimer ABG pH POC ABG pCO2 POC ABG pO2 56.5 L ABG Oxyhemoglobin ABG Sodium ABG Potassium ABG Chloride 109.0 H ABG Glucose 114 H Sodium Chloride Carbon Dioxide BUN Creatinine Glucose POC Glucose 114 H 136 H Hemoglobin A1c Lactic Acid Calcium Ferritin Total Bilirubin AST ALT Alkaline Phosphatase Lactate Dehydrogenase C-Reactive Protein Total Protein Albumin Arterial Blood Glucose 114 H Arterial Blood Ionized Calcium 4.5 L Ur Specific [place] Coronavirus (PCR) 11/24/20 11/24/20 11/24/20 05:14 05:14 05:14 WBC RBC Lymph % (Auto) [place] % (Auto) Lymph # (Auto) [place] # (Auto) Baso # (Auto) Seg Neutrophils % Seg Neuts % (Manual) Lymphocytes % (Manual) Seg Neutrophils # Seg Neutrophils # Man Lymphocytes # (Manual) D-Dimer 1433.39 H ABG pH POC ABG pCO2 POC ABG pO2 ABG Oxyhemoglobin ABG Sodium ABG Potassium ABG Chloride ABG Glucose Sodium Chloride Carbon Dioxide BUN Creatinine Glucose POC Glucose Hemoglobin A1c Lactic Acid Calcium Ferritin 997.5 H Total Bilirubin AST ALT Alkaline Phosphatase Lactate Dehydrogenase 463 H C-Reactive Protein Total Protein Albumin Arterial Blood Glucose Arterial Blood Ionized Calcium Ur Specific [place] Coronavirus (PCR) 11/24/20 11/24/20 11/24/20 05:31 05:36 12:05 WBC RBC Lymph % (Auto) [place] % (Auto) Lymph # (Auto) [place] # (Auto) Baso # (Auto) Seg Neutrophils % Seg Neuts % (Manual) Lymphocytes % (Manual) Seg Neutrophils # Seg Neutrophils # Man Lymphocytes # (Manual) D-Dimer ABG pH POC ABG pCO2 POC ABG pO2 57.2 L ABG Oxyhemoglobin ABG Sodium ABG Potassium ABG Chloride ABG Glucose 180 H Sodium Chloride Carbon Dioxide BUN Creatinine Glucose POC Glucose 199 H 143 H Hemoglobin A1c Lactic Acid Calcium Ferritin Total Bilirubin AST ALT Alkaline Phosphatase Lactate Dehydrogenase C-Reactive Protein Total Protein Albumin Arterial Blood Glucose 180 H Arterial Blood Ionized Calcium 4.5 L Ur Specific [place] Coronavirus (PCR) 11/24/20 11/24/20 11/24/20 12:14 17:47 23:47 WBC RBC Lymph % (Auto) [place] % (Auto) Lymph # (Auto) [place] # (Auto) Baso # (Auto) Seg Neutrophils % Seg Neuts % (Manual) Lymphocytes % (Manual) Seg Neutrophils # Seg Neutrophils # Man Lymphocytes # (Manual) D-Dimer ABG pH 7.261 L POC ABG pCO2 59.7 H POC ABG pO2 75.7 L ABG Oxyhemoglobin 92.5 L ABG Sodium ABG Potassium ABG Chloride 108.0 H ABG Glucose 150 H Sodium Chloride Carbon Dioxide BUN Creatinine Glucose POC Glucose 223 H 179 H Hemoglobin A1c Lactic Acid Calcium Ferritin Total Bilirubin AST ALT Alkaline Phosphatase Lactate Dehydrogenase C-Reactive Protein Total Protein Albumin Arterial Blood Glucose 150 H Arterial Blood Ionized Calcium Ur Specific [place] Coronavirus (PCR) 11/25/20 11/25/20 11/25/20 03:29 05:07 05:15 WBC 13.9 H RBC Lymph % (Auto) [place] % (Auto) Lymph # (Auto) [place] # (Auto) Baso # (Auto) Seg Neutrophils % Seg Neuts % (Manual) 97.0 H Lymphocytes % (Manual) Seg Neutrophils # Seg Neutrophils # Man 13.5 H Lymphocytes # (Manual) 0.0 L D-Dimer ABG pH 7.272 L POC ABG pCO2 69.0 H POC ABG pO2 132.9 H ABG Oxyhemoglobin ABG Sodium ABG Potassium ABG Chloride ABG Glucose 174 H Sodium Chloride Carbon Dioxide BUN Creatinine Glucose POC Glucose 168 H Hemoglobin A1c Lactic Acid Calcium Ferritin Total Bilirubin AST ALT Alkaline Phosphatase Lactate Dehydrogenase C-Reactive Protein Total Protein Albumin Arterial Blood Glucose 174 H Arterial Blood Ionized Calcium Ur Specific [place] Coronavirus (PCR) 11/25/20 11/25/20 11/25/20 05:15 11:25 17:35 WBC RBC Lymph % (Auto) [place] % (Auto) Lymph # (Auto) [place] # (Auto) Baso # (Auto) Seg Neutrophils % Seg Neuts % (Manual) Lymphocytes % (Manual) Seg Neutrophils # Seg Neutrophils # Man Lymphocytes # (Manual) D-Dimer ABG pH POC ABG pCO2 POC ABG pO2 ABG Oxyhemoglobin ABG Sodium ABG Potassium ABG Chloride ABG Glucose Sodium Chloride Carbon Dioxide BUN 29 H Creatinine 0.5 L Glucose 161 H POC Glucose 224 H 228 H Hemoglobin A1c Lactic Acid Calcium 7.8 L Ferritin Total Bilirubin AST 89 H ALT 129 H Alkaline Phosphatase Lactate Dehydrogenase C-Reactive Protein Total Protein 5.8 L Albumin 2.5 L Arterial Blood Glucose Arterial Blood Ionized Calcium Ur Specific [place] Coronavirus (PCR) 11/25/20 11/25/20 11/26/20 20:45 23:28 04:00 WBC RBC Lymph % (Auto) [place] % (Auto) Lymph # (Auto) [place] # (Auto) Baso # (Auto) Seg Neutrophils % Seg Neuts % (Manual) Lymphocytes % (Manual) Seg Neutrophils # Seg Neutrophils # Man Lymphocytes # (Manual) D-Dimer ABG pH POC ABG pCO2 POC ABG pO2 ABG Oxyhemoglobin ABG Sodium ABG Potassium ABG Chloride ABG Glucose Sodium Chloride Carbon Dioxide BUN Creatinine Glucose POC Glucose 177 H 243 H Hemoglobin A1c Lactic Acid Calcium Ferritin 778.8 H Total Bilirubin AST ALT Alkaline Phosphatase Lactate Dehydrogenase C-Reactive Protein Total Protein Albumin Arterial Blood Glucose Arterial Blood Ionized Calcium Ur Specific [place] Coronavirus (PCR) 11/26/20 11/26/20 11/26/20 04:00 05:34 06:04 WBC RBC Lymph % (Auto) [place] % (Auto) Lymph # (Auto) [place] # (Auto) Baso # (Auto) Seg Neutrophils % Seg Neuts % (Manual) Lymphocytes % (Manual) Seg Neutrophils # Seg Neutrophils # Man Lymphocytes # (Manual) D-Dimer 926.11 H ABG pH POC ABG pCO2 POC ABG pO2 ABG Oxyhemoglobin ABG Sodium ABG Potassium ABG Chloride ABG Glucose Sodium Chloride Carbon Dioxide 39 H D BUN 30 H Creatinine 0.5 L Glucose 193 H POC Glucose 178 H Hemoglobin A1c Lactic Acid Calcium 7.7 L Ferritin Total Bilirubin AST 65 H ALT 132 H Alkaline Phosphatase Lactate Dehydrogenase 288 H C-Reactive Protein 1.40 H Total Protein 5.7 L Albumin 2.4 L Arterial Blood Glucose Arterial Blood Ionized Calcium Ur Specific [place] Coronavirus (PCR) 11/26/20 11/26/20 11/26/20 06:04 08:47 11:20 WBC 12.4 H RBC Lymph % (Auto) [place] % (Auto) Lymph # (Auto) [place] # (Auto) Baso # (Auto) Seg Neutrophils % Seg Neuts % (Manual) 98.0 H Lymphocytes % (Manual) 1.0 L Seg Neutrophils # Seg Neutrophils # Man 12.2 H Lymphocytes # (Manual) 0.1 L D-Dimer ABG pH POC ABG pCO2 75.2 H POC ABG pO2 61.9 L ABG Oxyhemoglobin 90.3 L ABG Sodium ABG Potassium ABG Chloride ABG Glucose 243 H Sodium Chloride Carbon Dioxide BUN Creatinine Glucose POC Glucose 255 H Hemoglobin A1c Lactic Acid Calcium Ferritin Total Bilirubin AST ALT Alkaline Phosphatase Lactate Dehydrogenase C-Reactive Protein Total Protein Albumin Arterial Blood Glucose 243 H Arterial Blood Ionized Calcium Ur Specific [place] Coronavirus (PCR) 11/26/20 11/26/20 11/26/20 16:20 17:15 23:41 WBC RBC Lymph % (Auto) [place] % (Auto) Lymph # (Auto) [place] # (Auto) Baso # (Auto) Seg Neutrophils % Seg Neuts % (Manual) Lymphocytes % (Manual) Seg Neutrophils # Seg Neutrophils # Man Lymphocytes # (Manual) D-Dimer ABG pH POC ABG pCO2 66.6 H POC ABG pO2 78.1 L ABG Oxyhemoglobin ABG Sodium ABG Potassium ABG Chloride ABG Glucose 244 H Sodium Chloride Carbon Dioxide BUN Creatinine Glucose POC Glucose 219 H 210 H Hemoglobin A1c Lactic Acid Calcium Ferritin Total Bilirubin AST ALT Alkaline Phosphatase Lactate Dehydrogenase C-Reactive Protein Total Protein Albumin Arterial Blood Glucose 244 H Arterial Blood Ionized Calcium Ur Specific [place] Coronavirus (PCR) 11/27/20 11/27/20 11/27/20 04:46 05:38 06:25 WBC 13.8 H RBC Lymph % (Auto) 2.0 L [place] % (Auto) Lymph # (Auto) 0.3 L [place] # (Auto) Baso # (Auto) Seg Neutrophils % Seg Neuts % (Manual) 96.0 H Lymphocytes % (Manual) Seg Neutrophils # 12.7 H Seg Neutrophils # Man 13.2 H Lymphocytes # (Manual) 0.0 L D-Dimer ABG pH POC ABG pCO2 63.0 H POC ABG pO2 53.6 L ABG Oxyhemoglobin 87.8 L ABG Sodium 115.4 L ABG Potassium ABG Chloride ABG Glucose 219 H Sodium Chloride Carbon Dioxide BUN Creatinine Glucose POC Glucose 227 H Hemoglobin A1c Lactic Acid Calcium Ferritin Total Bilirubin AST ALT Alkaline Phosphatase Lactate Dehydrogenase C-Reactive Protein Total Protein Albumin Arterial Blood Glucose 219 H Arterial Blood Ionized Calcium Ur Specific [place] Coronavirus (PCR) 11/27/20 06:25 WBC RBC Lymph % (Auto) [place] % (Auto) Lymph # (Auto) [place] # (Auto) Baso # (Auto) Seg Neutrophils % Seg Neuts % (Manual) Lymphocytes % (Manual) Seg Neutrophils # Seg Neutrophils # Man Lymphocytes # (Manual) D-Dimer ABG pH POC ABG pCO2 POC ABG pO2 ABG Oxyhemoglobin ABG Sodium ABG Potassium ABG Chloride ABG Glucose Sodium Chloride Carbon Dioxide 38 H BUN 34 H Creatinine 0.4 L Glucose 243 H POC Glucose Hemoglobin A1c Lactic Acid Calcium 7.9 L Ferritin Total Bilirubin AST 50 H ALT 110 H Alkaline Phosphatase Lactate Dehydrogenase C-Reactive Protein Total Protein 6.1 L Albumin 2.4 L Arterial Blood Glucose Arterial Blood Ionized Calcium Ur Specific [place] Coronavirus (PCR)
--- NOTE | 2020-11-27 11:32 | Consultation ---
History of Present Illness Consult date: 11/27/20 Chief complaint: pneumomediastinum, possible PTX R - History of present illness History of present illness: 59 yo M who presented to hospital on 11/15/20 with shortness of breath, cough, fever, weakness. He is currently intubated, on vent and all hx obtained from chart. Patient was severely hypoxic with SPO2 in 80s. He was intubated and has remained on the vent since. He was diagnosed with COVID PNA. He has been requiring high PEEP and high O2 settings on vent, prone positioning. CXR showed pneumomediastinum and subcutaneous emphysema along the right chest wall, right neck and left neck. No distinct pneumothorax seen. Surgery consulted for possible PTX. Past History Past Medical History: other (unknown) Past Surgical History: Other (unknown) Social history: other (unknown) Family history: other (unknown) Medications and Allergies Allergies Allergy/AdvReac Type Severity Reaction Status Date / Time No Known Allergies Allergy Verified 11/16/20 00:01 Home Medications Medication Instructions Recorded Confirmed Last Taken Type No Known Home Medications [No 11/15/20 11/15/20 Unknown History Reported Home Medications] Active Meds: Active Medications Acetaminophen (Acetaminophen 325 Mg Tab) 650 mg PO Q4H PRN PRN Reason: Pain MILD(1-3)/Fever >100.5/BUTTS Last Admin: 11/18/20 22:19 Dose: 650 mg Documented by: Lipase/Protease/Amylase (Lipase 10,500/Protease 25,000/Amylase 43,750 (Units) Dr Cap) 1 each FEEDTUBE PRN PRN PRN Reason: For Clogged Feeding Tube Enoxaparin Sodium (Enoxaparin 80 Mg/0.8 Ml Inj) 80 mg SUB-Q Q12HR [facility] Last Admin: 11/27/20 08:59 Dose: 80 mg Documented by: Famotidine (Famotidine 20 Mg/2 Ml Inj) 20 mg IV BID [facility] Last Admin: 11/27/20 09:00 Dose: 20 mg Documented by: Fentanyl (Fentanyl 100 Mcg/2 Ml Inj) 50 mcg IV Q10MIN PRN PRN Reason: ANALGESIA Hydrophilic Ointment (Lip Therapy Vaseline) 1 applic TP Q2HR PRN PRN Reason: Dry Lips Fentanyl Citrate (Fentanyl Drip Premix) 2,000 mcg in 100 mls @ 3.625 mls/hr IV TITR [facility]; Protocol Last Admin: 11/27/20 07:16 Dose: 4 mcg/kg/hr, 14.5 mls/hr Documented by: Midazolam HCl 100 mg/ Sodium (Chloride) 100 mls @ 2 mls/hr IV TITR [facility]; Protocol Last Admin: 11/27/20 07:19 Dose: 5 mg/hr, 5 mls/hr Documented by: Norepinephrine (Levophed Drip 4 Mg/Ns 250 Ml) 4 mg in 250 mls @ 7.5 mls/hr IV TITR [facility]; Protocol Cisatracurium Besylate 20 mg/ (Sodium Chloride) 200 mls @ 21.75 mls/hr IV TITR [facility]; Protocol Stop: 11/27/20 12:01 Propofol (Diprivan 10 Mg/Ml) 1,000 mg in 100 mls @ 2.175 mls/hr IV TITR [facility]; Protocol Insulin Glargine (Insulin Glargine 100 Units/Ml) 40 units SUB-Q QHS [facility] Insulin Human Lispro (Insulin Lispro 100 Unit/Ml) 0 unit SUB-Q Q6HR [facility]; Protocol Last Admin: 11/27/20 06:44 Dose: 4 unit Documented by: Methylprednisolone Sodium Succinate (Methylprednisolone Sod Succinate 125 Mg/2 Ml Inj) 60 mg IV Q6HR [facility] Last Admin: 11/27/20 06:45 Dose: 60 mg Documented by: Metoclopramide HCl (Metoclopramide 10 Mg/2 Ml Inj) 10 mg IV Q6H PRN PRN Reason: Nausea And Vomiting Midazolam HCl (Midazolam 2 Mg/2 Ml Inj) 2 mg IV Q10MIN PRN PRN Reason: Sedation Multi-Ingred Cream/Lotion/Oil/Oint (Mineral Oil/Petrolatum, White Ophth Oint 3.5 Gm) 1 applic OU Q4HR PRN PRN Reason: Dry Eye(s) Ondansetron HCl (Ondansetron 4 Mg/2 Ml Inj) 4 mg IV Q8H PRN PRN Reason: Nausea And Vomiting Simple Syrup (Simple Syrup 15 Ml) 15 ml FEEDTUBE PRN PRN PRN Reason: Hypoglycemia Simple Syrup (Simple Syrup 15 Ml) 30 ml FEEDTUBE PRN PRN PRN Reason: Hypoglycemia Sodium Bicarbonate (Sodium Bicarbonate 325 Mg Tab) 325 mg FEEDTUBE PRN PRN PRN Reason: For Clogged Feeding Tube Sodium Chloride (Sodium Chloride 0.9% 10 Ml Flush Syringe) 10 ml IV BID [facility] Last Admin: 11/27/20 09:00 Dose: 10 ml Documented by: Sodium Chloride (Sodium Chloride 0.9% 10 Ml Flush Syringe) 10 ml IV PRN PRN PRN Reason: LINE FLUSH Review of Systems ROS unobtainable: due to mental status Exam Vital Signs Temp Pulse Resp BP Pulse Ox 101.0 F H 116 H 46 H 145/90 99 11/15/20 10:30 11/15/20 10:30 11/15/20 10:30 11/15/20 10:30 11/15/20 10:30 Narrative exam: Gen.: Intubated, responds by grimacing to painful stimulus. ENT: Trachea midline. No lymphadenopathy. CV: S1, S2 present Respiratory: Diminished breath sounds bilaterally. Minimal crepitus or right lateral chest wall and bilateral supraclavicular region. No audible wheezes Abdomen: Soft, nondistended, nontender. No rebound, rigidity, guarding Extremities: +edema Results - Labs 11/27/20 06:25 11/27/20 06:25 Abnormal lab results 11/26/20 11/26/20 11/26/20 Range/Units 08:47 11:20 16:20 WBC (4.5-11.0) K/mm3 Lymph % (Auto) (13.4-35.0) % Lymph # (Auto) (1.2-5.4) K/mm3 Seg Neuts % (Manual) (40.0-70.0) % Seg Neutrophils # (1.8-7.7) K/mm3 Seg Neutrophils # Man (1.8-7.7) K/mm3 Lymphocytes # (Manual) (1.2-5.4) K/mm3 POC ABG pCO2 75.2 H 66.6 H (32.0-48.0) mmHg POC ABG pO2 61.9 L 78.1 L (83-108) mmHg ABG Oxyhemoglobin 90.3 L (94-98) ABG Sodium (136.0-145.0) mmol/L ABG Glucose 243 H 244 H (65-95) mg/dL Carbon Dioxide (22-30) mmol/L BUN (9-20) mg/dL Creatinine (0.8-1.3) mg/dL Glucose (75-100) mg/dL POC Glucose 255 H (70-105) mg/dL Calcium (8.4-10.2) mg/dL AST (5-40) units/L ALT (7-56) units/L Total Protein (6.3-8.2) g/dL Albumin (3.9-5) g/dL Arterial Blood Glucose 243 H 244 H (65-95) mg/dL 11/26/20 11/26/20 11/27/20 Range/Units 17:15 23:41 04:46 WBC (4.5-11.0) K/mm3 Lymph % (Auto) (13.4-35.0) % Lymph # (Auto) (1.2-5.4) K/mm3 Seg Neuts % (Manual) (40.0-70.0) % Seg Neutrophils # (1.8-7.7) K/mm3 Seg Neutrophils # Man (1.8-7.7) K/mm3 Lymphocytes # (Manual) (1.2-5.4) K/mm3 POC ABG pCO2 63.0 H (32.0-48.0) mmHg POC ABG pO2 53.6 L (83-108) mmHg ABG Oxyhemoglobin 87.8 L (94-98) ABG Sodium 115.4 L (136.0-145.0) mmol/L ABG Glucose 219 H (65-95) mg/dL Carbon Dioxide (22-30) mmol/L BUN (9-20) mg/dL Creatinine (0.8-1.3) mg/dL Glucose (75-100) mg/dL POC Glucose 219 H 210 H (70-105) mg/dL Calcium (8.4-10.2) mg/dL AST (5-40) units/L ALT (7-56) units/L Total Protein (6.3-8.2) g/dL Albumin (3.9-5) g/dL Arterial Blood Glucose 219 H (65-95) mg/dL 11/27/20 11/27/20 11/27/20 Range/Units 05:38 06:25 06:25 WBC 13.8 H (4.5-11.0) K/mm3 Lymph % (Auto) 2.0 L (13.4-35.0) % Lymph # (Auto) 0.3 L (1.2-5.4) K/mm3 Seg Neuts % (Manual) 96.0 H (40.0-70.0) % Seg Neutrophils # 12.7 H (1.8-7.7) K/mm3 Seg Neutrophils # Man 13.2 H (1.8-7.7) K/mm3 Lymphocytes # (Manual) 0.0 L (1.2-5.4) K/mm3 POC ABG pCO2 (32.0-48.0) mmHg POC ABG pO2 (83-108) mmHg ABG Oxyhemoglobin (94-98) ABG Sodium (136.0-145.0) mmol/L ABG Glucose (65-95) mg/dL Carbon Dioxide 38 H (22-30) mmol/L BUN 34 H (9-20) mg/dL Creatinine 0.4 L (0.8-1.3) mg/dL Glucose 243 H (75-100) mg/dL POC Glucose 227 H (70-105) mg/dL Calcium 7.9 L (8.4-10.2) mg/dL AST 50 H (5-40) units/L ALT 110 H (7-56) units/L Total Protein 6.1 L (6.3-8.2) g/dL Albumin 2.4 L (3.9-5) g/dL Arterial Blood Glucose (65-95) mg/dL Diabetes panel 11/27/20 Range/Units 06:25 Sodium 142 (137-145) mmol/L Potassium 4.4 (3.6-5.0) mmol/L Chloride 99.7 (98-107) mmol/L Carbon Dioxide 38 H (22-30) mmol/L BUN 34 H (9-20) mg/dL Creatinine 0.4 L (0.8-1.3) mg/dL Glucose 243 H (75-100) mg/dL Calcium 7.9 L (8.4-10.2) mg/dL AST 50 H (5-40) units/L ALT 110 H (7-56) units/L Alkaline Phosphatase 124 (35-129) units/L Total Protein 6.1 L (6.3-8.2) g/dL Albumin 2.4 L (3.9-5) g/dL Calcium panel 11/27/20 Range/Units 06:25 Calcium 7.9 L (8.4-10.2) mg/dL Albumin 2.4 L (3.9-5) g/dL Pituitary panel 11/27/20 Range/Units 06:25 Sodium 142 (137-145) mmol/L Potassium 4.4 (3.6-5.0) mmol/L Chloride 99.7 (98-107) mmol/L Carbon Dioxide 38 H (22-30) mmol/L BUN 34 H (9-20) mg/dL Creatinine 0.4 L (0.8-1.3) mg/dL Glucose 243 H (75-100) mg/dL Calcium 7.9 L (8.4-10.2) mg/dL Adrenal panel 11/27/20 Range/Units 06:25 Sodium 142 (137-145) mmol/L Potassium 4.4 (3.6-5.0) mmol/L Chloride 99.7 (98-107) mmol/L Carbon Dioxide 38 H (22-30) mmol/L BUN 34 H (9-20) mg/dL Creatinine 0.4 L (0.8-1.3) mg/dL Glucose 243 H (75-100) mg/dL Calcium 7.9 L (8.4-10.2) mg/dL Total Bilirubin 0.60 (0.1-1.2) mg/dL AST 50 H (5-40) units/L ALT 110 H (7-56) units/L Alkaline Phosphatase 124 (35-129) units/L Total Protein 6.1 L (6.3-8.2) g/dL Albumin 2.4 L (3.9-5) g/dL - Imaging Chest x-ray: report reviewed, image reviewed Assessment and Plan 59 yo M with 1. COVID PNA 2. VDRF 3. sepsis 4. pneumomediastinum, high suspicion R PTX CXR: pneumomediastinum with subcutaneous emphysema of b/l neck and right chest wall. No distinct PTX VENT: FIO2 80%, PEEP 16, TV: 350 RR: 30 Plan: 1. Vent management per ICU team 2. CXR findings concerning for subclinical PTX, suspected on right. Recommend placement of right chest tube as patient is on high PEEP and FIO2 and further barotrauma can worsen PTX. Discussed indication, risks, benefits, alternatives with patient's cousin/NOK Tayla Ramirez and brother over telephone. Consent obtained. 3. Keep Chest tube to -[id number] suction 4. daily CXR D/W Dr. German Thank you for this consultation. Please call with any questions or concerns. Evaluation and treatment of this patient was during the time of the national and state emergency arising from COVID19 coronavirus pandemic. Treatment and procedures performed meet the current and available best practice and guidelines for patient during the COVID pandemic.
[2020-11-27] MEDS ORDERED: CISATRACURIUM IV SCH (12:00)
[2020-11-27] MEDS ORDERED: SODIUM CHLORIDE 0.9% IV SCH (12:00)
--- NOTE | 2020-11-27 12:23 | Procedure Note ---
Date of procedure: 11/27/20 Pre-op diagnosis: Right pneumothorax, pneumomediastium on vent Post-op diagnosis: same Procedure: placement of right chest tube Findings: Patient supine in hospital bed with right arm abducted. Patient already on sedation.The right lateral chest wall was prepped with betadine. Time out performed. Area draped in sterile fashion. The 4th intercostal space in the midaxillary line was palpated and marked. The skin was anesthetized with local anesthetic. A 2 cm incision was made in the skin using a 15 blade and dissection carried out in the subcutaneous tissue using hemostat. The 4th intercostal space was identified and local anesthetic infiltrated into the pleura and pleural space. Further blunt dissection was carried out over the rib using zoran clamp until the pleural space was entered. There was a pop felt once the zoran went through the pleura. A 24 [place] chest tube was inserted into the space and directed superiorly and posteriorly. This was advanced to 12 cm at the skin without resistance. The tube was connected to pleurevac. There was no air leak. 10 cc of serosanguenous drainage in tubing. The chest tube was secured to the skin using a 0 silk U stitch. An occlusive dressing was applied. The chest tube was secured in the usual fashion. The pleurevac was set to -[id number] suction. The patient tolerated the procedure well. All sharps were disposed of appropriately. Sterile technique and COVID contact precaution measures were maintained throughout the procedure. RN present for procedure. A follow up chest xray is pending Implants: 24F chest tube Anesthesia: local Surgeon: VIOLETA YANEZ Estimated blood loss: minimal Pathology: none Condition: stable Disposition: no change
[2020-11-27] MEDS: CISATRACURIUM IV SCH ×2 (12:28→21:08)
[2020-11-27] MEDS: SODIUM CHLORIDE 0.9% IV SCH ×2 (12:28→21:08)
--- NOTE | 2020-11-27 13:17 | Progress Note ---
Assessment and Plan Assessment and plan: 59-year-old female presents with shortness of breath cough fever weakness. "1 to 2 days. Patient has severe hypoxia per EMS. Her saturations are in the low 80s. With all oxygen and nonrebreather came down to low 90s. Patient denies any past medical history. Exposure to coronavirus present. Does not have a primary care physician. 2/1: Patient continues on BiPAP throughout the night. Labs are remarkable for hypoxia with improving renal function but lactic acidosis without fever. CTA has been ordered to rule out pulmonary embolism. I agree with increasing enoxaparin to twice daily full dose for empiric treatment of pulmonary embolism. Will obtain ID consultation on further evaluation for possible underlying pneumonia versus COVID-19. We will also obtain echocardiogram for evaluation. Will discontinue fluids at this time. 2/2; Continue supportive care, Patient remains with very guarded prognosis, remains on BiPAP, continues on Remdesivir, and steroids. Will continue antico agulation, unable to get CTA Chest due to patients unstable clinical status. Will adjust insulin for better blood glucose 2/3: Continues on BIPAP, no clear improvement at this time. Will continue richelle roids therapy Remdesivir and also Full anticoagulation at this time. Will update family. Discussed with Racing Board Marker. 2/4: Taking a break from the BiPAP on high flow and nonrebreather 100% with saturation of 90% becomes hypoxic with any movement. Racing Board Marker input noted will get a dose of Lasix today. Will await a discussion with ID for possibly increasing steroid. I updated Patient's Cousin, Tayla Esquivel who is the emergency customer contact representative. Blood sugar remains fluctuating secondary to steriods, Encouraged Prone positioning. Noted with mild hyponatremia we will continue to monitor and manage 2/5: Continue supportive care wean oxygen as tolerated prognosis remains guarded. Encouraged to progress as tolerated. Awaiting labs today. Discussed with nursing staff and patient at bedside. 2/6: Discontinued Dexamethasone as Solumedrol started secondary to increased oxygen demand. Will give additional insulin for better control. Continue oxygen support patient still on high flow. Prognosis still guarded 2/7: Patient was intubated and placed on mechanical ventilation. Continue current medication. Will check a.m. labs today. Noted still with hypotension. Doubt septic shock at this time as patient has no new fever. Will adjust insulin for better blood sugar control. 11/23: Patient admitted with COVID-19 despite all efforts patient remains severely hypoxic and now is intubated. Racing Board Marker input noted. Blood pressure marginal at this time. Very poor prognosis. Continue Solu-Medrol. 11/24. Patient remains very hypoxic. Blood pressure borderline. Plan for initiation of paralytic agents as per lab technician. Patient may need to be transferred if no improvement. 11/26. Off paralytics. Remains intubated. On steroids. Prognosis is poor. 11/27. Chest xray shows pneumomediastinum and subcutaneous emphysema. Surgery consulted. Plan for chest tube placement. Problems (1) Acute respiratory failure with hypoxia 11/17 COVID 19 pneumonia Patient remains fully dependent on mechanical ventilatory support Racing Board Marker on board On solumedrol 60 q 6 ID on board Prognosis is poor (2) Pneumomediastinum Chest xray shows pneumomediastinum and subcutenous emphysema Surgery on board. (3) Diabetes Mellitus Continue Insulin Monitor blood glucose closely The high probability of a clinically significant, sudden or life threatening deterioration of the [pulmonary] system(s) required my full and direct attention, intervention and personal management. The aggregate critical care time was [35] minutes. This time is in addition to time spent performing reported procedures but includes the following: [X] Data Review and interpretation [X] Patient assessment and monitoring of vital signs [X] Documentation [X] Medication orders and management History Interval history: Remains fully dependent on ventilator Chest xray shows pneumomediastinum Surgery consulted Hospitalist Physical - Physical exam Narrative exam: VITAL SIGNS: Reviewed. GENERAL: Sedated and intubated HEAD: No signs of head trauma. EYES: Pupils are equal. NECK: No adenopathy, no JVD. CHEST: Chest with diminished breath sounds bilaterally. No wheezes, rales, or rhonchi. CARDIAC: normal S1 and S2, without murmurs, gallops, or rubs. ABDOMEN: Soft, non tender and non distended. No rebound or guarding, and no masses palpated. Bowel Sounds normal. MUSCULOSKELETAL: No edema NEUROLOGIC EXAM: Sedated SKIN: No obvious lesions - Constitutional Vitals: Temp Pulse Resp BP Pulse Ox 98.1 F 69 14 118/64 94 11/27/20 12:00 11/27/20 12:26 11/27/20 10:00 11/27/20 12:26 11/27/20 12:26 HEART Score - HEART Score Troponin: Troponin T < 0.010 ng/mL (0.00-0.029) 11/22/20 Unknown Results - Labs CBC & Chem 7: 11/27/20 06:25 11/27/20 06:25 Labs: Laboratory Last Values WBC 13.8 K/mm3 (4.5-11.0) H 11/27/20 06:25 RBC 4.58 M/mm3 (3.65-5.03) 11/27/20 06:25 Hgb 13.6 gm/dl (11.8-15.2) 11/27/20 06:25 Hct 41.3 % (35.5-45.6) 11/27/20 06:25 MCV 90 fl (84-94) 11/27/20 06:25 MCH 30 pg (28-32) 11/27/20 06:25 MCHC 33 % (32-34) 11/27/20 06:25 RDW 14.2 % (13.2-15.2) 11/27/20 06:25 Plt Count 262 K/mm3 (140-440) 11/27/20 06:25 Lymph % (Auto) 2.0 % (13.4-35.0) L 11/27/20 06:25 Stephens % (Auto) 5.2 % (0.0-7.3) 11/27/20 06:25 Eos % (Auto) 0.0 % (0.0-4.3) 11/27/20 06:25 Baso % (Auto) 0.1 % (0.0-1.8) 11/27/20 06:25 Lymph # (Auto) 0.3 K/mm3 (1.2-5.4) L 11/27/20 06:25 Stephens # (Auto) 0.7 K/mm3 (0.0-0.8) 11/27/20 06:25 Eos # (Auto) 0.0 K/mm3 (0.0-0.4) 11/27/20 06:25 Baso # (Auto) 0.0 K/mm3 (0.0-0.1) 11/27/20 06:25 Add Manual Diff Complete 11/27/20 06:25 Total Counted 100 11/27/20 06:25 Seg Neutrophils % Still Pump Operator 11/27/20 06:25 Seg Neuts % (Manual) 96.0 % (40.0-70.0) H 11/27/20 06:25 Lymphocytes % (Manual) 1.0 % (13.4-35.0) L 11/26/20 06:04 Monocytes % (Manual) 4.0 % (0.0-7.3) 11/27/20 06:25 Nucleated RBC % Not Reportable 11/27/20 06:25 Seg Neutrophils # 12.7 K/mm3 (1.8-7.7) H 11/27/20 06:25 Seg Neutrophils # Man 13.2 K/mm3 (1.8-7.7) H 11/27/20 06:25 Band Neutrophils # 0.0 K/mm3 11/27/20 06:25 Lymphocytes # (Manual) 0.0 K/mm3 (1.2-5.4) L 11/27/20 06:25 Abs React Lymphs (Man) 0.0 K/mm3 11/27/20 06:25 Monocytes # (Manual) 0.6 K/mm3 (0.0-0.8) 11/27/20 06:25 Eosinophils # (Manual) 0.0 K/mm3 (0.0-0.4) 11/27/20 06:25 Basophils # (Manual) 0.0 K/mm3 (0.0-0.1) 11/27/20 06:25 Metamyelocytes # 0.0 K/mm3 11/27/20 06:25 Myelocytes # 0.0 K/mm3 11/27/20 06:25 Promyelocytes # 0.0 K/mm3 11/27/20 06:25 Blast Cells # 0.0 K/mm3 11/27/20 06:25 WBC Morphology Not Reportable 11/27/20 06:25 Hypersegmented Neuts Not Reportable 11/27/20 06:25 Hyposegmented Neuts Not Reportable 11/27/20 06:25 Hypogranular Neuts Not Reportable 11/27/20 06:25 Smudge Cells Not Reportable 11/27/20 06:25 Toxic Granulation Not Reportable 11/27/20 06:25 Toxic Vacuolation Not Reportable 11/27/20 06:25 Dohle Bodies Not Reportable 11/27/20 06:25 Pelger-Huet Anomaly Not Reportable 11/27/20 06:25 Tony Rods Not Reportable 11/27/20 06:25 Platelet Estimate Consistent w auto 11/27/20 06:25 Clumped Platelets Not Reportable 11/27/20 06:25 Plt Clumps, EDTA Not Reportable 11/27/20 06:25 Large Platelets Not Reportable 11/27/20 06:25 Giant Platelets Not Reportable 11/27/20 06:25 Platelet Satelliting Not Reportable 11/27/20 06:25 Plt Morphology Comment Not Reportable 11/27/20 06:25 RBC Morphology Normal 11/27/20 06:25 Dimorphic RBCs Not Reportable 11/27/20 06:25 Polychromasia Not Reportable 11/27/20 06:25 Hypochromasia Not Reportable 11/27/20 06:25 Poikilocytosis Not Reportable 11/27/20 06:25 Anisocytosis Not Reportable 11/27/20 06:25 Microcytosis Not Reportable 11/27/20 06:25 Macrocytosis Not Reportable 11/27/20 06:25 Spherocytes Not Reportable 11/27/20 06:25 Pappenheimer Bodies Not Reportable 11/27/20 06:25 Sickle Cells Not Reportable 11/27/20 06:25 Target Cells Not Reportable 11/27/20 06:25 Tear Drop Cells Not Reportable 11/27/20 06:25 Ovalocytes Not Reportable 11/27/20 06:25 Helmet Cells Not Reportable 11/27/20 06:25 Cabrera-Leshara Bodies Not Reportable 11/27/20 06:25 [place] Rings Not Reportable 11/27/20 06:25 Henrry Cells Not Reportable 11/27/20 06:25 Bite Cells Not Reportable 11/27/20 06:25 Crenated Cell Not Reportable 11/27/20 06:25 Elliptocytes Not Reportable 11/27/20 06:25 Acanthocytes (Spur) Not Reportable 11/27/20 06:25 Rouleaux Not Reportable 11/27/20 06:25 Hemoglobin C Crystals Not Reportable 11/27/20 06:25 Schistocytes Not Reportable 11/27/20 06:25 Malaria parasites Not Reportable 11/27/20 06:25 Yovani Bodies Not Reportable 11/27/20 06:25 Hem Pathologist Commnt No 11/27/20 06:25 D-Dimer 926.11 ng/mlDDU (0-234) H 11/26/20 06:04 ABG pH 7.387 (7.320-7.450) 11/27/20 04:46 POC ABG pCO2 63.0 mmHg (32.0-48.0) H 11/27/20 04:46 POC ABG pO2 53.6 mmHg (83-108) L 11/27/20 04:46 POC ABG HCO3 37.0 11/27/20 04:46 POC ABG Base Excess 9.4 11/27/20 04:46 ABG Hemoglobin 14.5 (12.0-17.5) 11/27/20 04:46 ABG Oxyhemoglobin 87.8 (94-98) L 11/27/20 04:46 ABG Methemoglobin 0.3 (0.0-1.5) 11/27/20 04:46 ABG Sodium 115.4 mmol/L (136.0-145.0) L 11/27/20 04:46 ABG Potassium 4.2 mmol/L (3.40-4.50) 11/27/20 04:46 ABG Chloride 100.0 mmol/L (98-107) 11/27/20 04:46 ABG Glucose 219 mg/dL (65-95) H 11/27/20 04:46 Carboxyhemoglobin 1.4 (0.5-1.5) 11/27/20 04:46 FiO2 80.0 11/27/20 04:46 Sodium 142 mmol/L (137-145) 11/27/20 06:25 Potassium 4.4 mmol/L (3.6-5.0) 11/27/20 06:25 Chloride 99.7 mmol/L (98-107) 11/27/20 06:25 Carbon Dioxide 38 mmol/L (22-30) H 11/27/20 06:25 Anion Gap 9 mmol/L 11/27/20 06:25 BUN 34 mg/dL (9-20) H 11/27/20 06:25 Creatinine 0.4 mg/dL (0.8-1.3) L 11/27/20 06:25 Estimated GFR > 60 ml/min 11/27/20 06:25 BUN/Creatinine Ratio 85 % 11/27/20 06:25 Glucose 243 mg/dL (75-100) H 11/27/20 06:25 POC Glucose 227 mg/dL (70-105) H 11/27/20 05:38 Hemoglobin A1c 11.7 % (4-6) H 11/16/20 05:29 Lactic Acid 2.60 mmol/L (0.7-2.0) H* 11/16/20 05:29 Calcium 7.9 mg/dL (8.4-10.2) L 11/27/20 06:25 Ferritin 778.8 ng/mL (30.0-300.0) H 11/26/20 04:00 Total Bilirubin 0.60 mg/dL (0.1-1.2) 11/27/20 06:25 AST 50 units/L (5-40) H 11/27/20 06:25 ALT 110 units/L (7-56) H 11/27/20 06:25 Alkaline Phosphatase 124 units/L (35-129) 11/27/20 06:25 Lactate Dehydrogenase 288 units/L (91-180) H 11/26/20 04:00 Troponin T < 0.010 ng/mL (0.00-0.029) 11/22/20 Unknown C-Reactive Protein 1.40 mg/dL (0.00-1.30) H 11/26/20 04:00 NT-Pro-B Natriuret Pep 107.2 pg/mL (0-900) 11/17/20 10:21 Total Protein 6.1 g/dL (6.3-8.2) L 11/27/20 06:25 Albumin 2.4 g/dL (3.9-5) L 11/27/20 06:25 Albumin/Globulin Ratio 0.6 % 11/27/20 06:25 Procalcitonin 0.51 ng/mL (<0.15) 11/15/20 10:39 Arterial Blood Glucose 219 mg/dL (65-95) H 11/27/20 04:46 Arterial Blood Ionized Calcium 4.6 mg/dL (4.6-5.3) 11/27/20 04:46 Urine Color Faustina (Yellow) 11/16/20 01:45 Urine Turbidity Slightly-cloudy (Clear) 11/16/20 01:45 Urine pH 6.0 (5.0-7.0) 11/16/20 01:45 Ur Specific Victoria 1.037 (1.003-1.030) H 11/16/20 01:45 Urine Protein 30 mg/dl mg/dL (Negative) 11/16/20 01:45 Urine Glucose (UA) >=500 mg/dL (Negative) 11/16/20 01:45 Urine Ketones 20 mg/dL (Negative) 11/16/20 01:45 Urine Blood Neg (Negative) 11/16/20 01:45 Urine Nitrite Neg (Negative) 11/16/20 01:45 Urine Bilirubin Neg (Negative) 11/16/20 01:45 Urine Urobilinogen 2.0 mg/dL (<2.0) 11/16/20 01:45 Ur Leukocyte Esterase Neg (Negative) 11/16/20 01:45 Urine WBC (Auto) 2.0 /HPF (0.0-6.0) 11/16/20 01:45 Urine RBC (Auto) 1.0 /HPF (0.0-6.0) 11/16/20 01:45 Urine Bacteria (Auto) 1+ /HPF (Negative) 11/16/20 01:45 Urine Mucus 3+ /HPF 11/16/20 01:45 Coronavirus (PCR) Positive (Negative) A 11/16/20 Unknown Microbiology: Microbiology 11/21/20 23:49 Tracheal Aspirate Sputum Culture - Preliminary Staphylococcus Aureus - Diagnostic Impressions Diagnostic Impressions: Echocardiogram 11/16/20 10:34 Transthoracic Echocardiogram Indication: Shortness of breath-COVID BP: 108/77 HR: 92 Conclusions *Global left ventricular systolic function is normal. *The estimated ejection fraction is 60-65%. *Mild to moderate concentric left ventricular hypertrophy is observed. *There is trace of mitral regurgitation. *There is mild to moderate tricuspid regurgitation. *There is evidence of mild pulmonary hypertension. *The right ventricular systolic pressure is calculated at 31 mmHg. Findings Left Ventricle: The left ventricular chamber size is normal. Mild to moderate concentric left ventricular hypertrophy is observed. Global left ventricular systolic function is normal. The estimated ejection fraction is 60-65%. Left Atrium: The left atrial chamber size is normal. Right Ventricle: The right ventricular cavity size is normal. The right ventricular global systolic function is normal. Right Atrium: The right atrial cavity size is normal. Aortic Valve: The aortic valve is trileaflet. There is no evidence of aortic regurgitation. There is no evidence of aortic stenosis. Mitral Valve: The mitral valve leaflets appear normal. There is trace of mitral regurgitation. There is no evidence of mitral stenosis. Tricuspid Valve: The tricuspid valve leaflets are normal. There is mild to moderate tricuspid regurgitation. The right ventricular systolic pressure is calculated at 31 mmHg. There is evidence of mild pulmonary hypertension. Pulmonic Valve: There is trace pulmonic regurgitation. Pericardium: There is no pericardial effusion. Aorta: There is no dilatation of the ascending aorta. There is no dilatation of the aortic root. Venous: The inferior vena cava appears normal in size. Measurements Chambers 2D Name Value Normal Range IVSd (2D) 0.81 cm (0.6 - 1.1) LVPWd (2D) 0.79 cm (0.6 - 1.1) LVIDd (2D) 4.22 cm (3.7 - 5.6) LVIDs (2D) 3.1 cm (2 - 3.8) LV FS (2D) 26.71 % - EF Teichholz (2D) 52.55 % - Ao root diameter (2D) 3.34 cm (2 - 3.7) Volumes/Mass Name Value Normal Range LA ESV SP 4CH (A/L) 10.87 ml - LA ESV SP 2CH (A/L) 18.74 ml - LA ESV BP (A/L) 16.38 ml - LA ESV BP (A/L) index 8.62 ml/m2 - LA ESV SP 4CH (MOD) 10.32 ml - LA ESV SP 2CH (MOD) 17.66 ml - LA ESV BP (MOD) 15.12 ml - LA ESV BP (MOD) index 7.96 ml/m2 - Diastolic/Systolic Function Name Value Normal Range MV E-wave Vmax 0.76 m/sec - MV deceleration time 133.63 msec - MV A-wave Vmax 1.1 m/sec - MV E:A ratio 0.69 ratio - Aortic Valve Name Value Normal Range AV Vmax 1.44 m/sec - AV VTI 22.94 cm - AV peak gradient 8.33 mmHg - AV mean gradient 4.73 mmHg - LVOT diameter 2.2 cm - LVOT Vmax 1.04 m/sec - LVOT VTI 18.88 cm - LVOT peak gradient 4.34 mmHg - LVOT mean gradient 2.31 mmHg - SV LVOT 72.05 ml - EVANGELISTA (continuity Vmax) 2.75 cm2 - EVANGELISTA (continuity VTI) 3.14 cm2 - Tricuspid Valve Name Value Normal Range TR Vmax 2.64 m/sec - TR peak gradient 28 mmHg - RAP 3 mmHg - RVSP 31 mmHg - Gupta/IV: Voiding Method Indwelling Catheter IV Catheter Type [Left Peripheral IV Antecubital] Active Medications - Current Medications Current Medications: Generic Name Dose Route Start Last Admin Trade Name Freq PRN Reason Stop Dose Admin Acetaminophen 650 mg 11/15/20 23:55 11/18/20 22:19 Acetaminophen 325 Mg Tab PO 650 mg Q4H PRN Administration Pain MILD(1-3)/Fever >100.5/BUTTS Lipase/Protease/Amylase 1 each 11/23/20 11:53 Lipase 10,500/Protease 25,000/Amylase 43,750 (Units) Dr Cap FEEDTUBE PRN PRN For Clogged Feeding Tube Enoxaparin Sodium 80 mg 11/16/20 10:00 11/27/20 08:59 Enoxaparin 80 Mg/0.8 Ml Inj SUB-Q 80 mg Q12HR RAEANN Administration Famotidine 20 mg 11/22/20 22:00 11/27/20 09:00 Famotidine 20 Mg/2 Ml Inj IV 20 mg BID RAEANN Administration Fentanyl 50 mcg 11/21/20 21:53 Fentanyl 100 Mcg/2 Ml Inj IV Q10MIN PRN ANALGESIA Hydrophilic Ointment 1 applic 11/21/20 21:53 Lip Therapy Vaseline TP Q2HR PRN Dry Lips Fentanyl Citrate 2,000 mcg in 100 mls @ 3.625 mls/hr 11/21/20 22:00 11/27/20 07:16 Fentanyl Drip Premix IV 4 mcg/kg/hr TITR RAEANN 14.5 mls/hr Administration Protocol 1 MCG/KG/HR Midazolam HCl 100 mg/ Sodium 100 mls @ 2 mls/hr 11/21/20 22:00 11/27/20 07:19 Chloride IV 5 mg/hr TITR RAEANN 5 mls/hr Administration Protocol 2 MG/HR Norepinephrine 4 mg in 250 mls @ 7.5 mls/hr 11/22/20 17:00 Levophed Drip 4 Mg/Ns 250 Ml IV TITR [facility] Protocol 2 MCG/MIN Propofol 1,000 mg in 100 mls @ 2.175 mls/hr 11/27/20 12:00 11/27/20 12:27 Diprivan 10 Mg/Ml IV 5 mcg/kg/min TITR RAEANN 2.175 mls/hr Administration Protocol 5 MCG/KG/MIN Cisatracurium Besylate 20 mg/ 200 mls @ 21.75 mls/hr 11/27/20 13:00 11/27/20 12:28 Sodium Chloride IV 11/28/20 12:59 0.5 mcg/kg/min TITR RAEANN 21.75 mls/hr Administration Protocol 0.5 MCG/KG/MIN Insulin Glargine 40 units 11/27/20 22:00 Insulin Glargine 100 Units/Ml SUB-Q QHS [facility] Insulin Human Lispro 0 unit 11/22/20 06:00 11/27/20 12:38 Insulin Lispro 100 Unit/Ml SUB-Q Not Given Q6HR [facility] Protocol Methylprednisolone Sodium Succinate 60 mg 11/20/20 12:00 11/27/20 12:38 Methylprednisolone Sod Succinate 125 Mg/2 Ml Inj IV 60 mg Q6HR [facility] Administration Metoclopramide HCl 10 mg 11/15/20 23:55 Metoclopramide 10 Mg/2 Ml Inj IV Q6H PRN Nausea And Vomiting Midazolam HCl 2 mg 11/21/20 21:53 Midazolam 2 Mg/2 Ml Inj IV Q10MIN PRN Sedation Multi-Ingred Cream/Lotion/Oil/Oint 1 applic 11/21/20 21:53 Mineral Oil/Petrolatum, White Ophth Oint 3.5 Gm OU Q4HR PRN Dry Eye(s) Ondansetron HCl 4 mg 11/15/20 23:55 Ondansetron 4 Mg/2 Ml Inj IV Q8H PRN Nausea And Vomiting Simple Syrup 15 ml 11/23/20 11:53 Simple Syrup 15 Ml FEEDTUBE PRN PRN Hypoglycemia Simple Syrup 30 ml 11/23/20 11:53 Simple Syrup 15 Ml FEEDTUBE PRN PRN Hypoglycemia Sodium Bicarbonate 325 mg 11/23/20 11:53 Sodium Bicarbonate 325 Mg Tab FEEDTUBE PRN PRN For Clogged Feeding Tube Sodium Chloride 10 ml 11/16/20 10:00 11/27/20 09:00 Sodium Chloride 0.9% 10 Ml Flush Syringe IV 10 ml BID RAEANN Administration Sodium Chloride 10 ml 11/15/20 23:55 Sodium Chloride 0.9% 10 Ml Flush Syringe IV PRN PRN LINE FLUSH Nutrition/Malnutrition Assess - Dietary Evaluation Nutrition/Malnutrition Findings: Nutrition Notes Start: 11/20/20 12:0 3 Freq: Status: Active Protocol: Document 11/26/20 10:59 KIT (Rec: 11/26/20 11:25 KIT [id number]) Co-Sign 11/26/20 10:59 NHALL Nutrition Notes Initial or Follow up Reassessment Current Diagnosis Diabetes,Sepsis,Respiratory Failure Other Pertinent Diagnosis Bilat pneu, COVID-19 (+) Current Diet Glucerna 1.2 at 100 ml/hr when not proned, 20 ml when proned Labs/Tests BUN 51 Cr 3.4 BG 189 Pertinent Medications Levophed Height 5 ft 6 in Weight 72.5 kg Usual Body Weight 80.5 kg [place] Body Weight (kg) 64.54 BMI 25.7 Weight Status Overweight Subjective/Other Information F/u TF tolerance. Pt coded blue this AM and TF on hold for now. Percent of energy/protein needs met: 0%/0% Burn Absent Trauma Absent GI Symptoms None Difficulty In Swallowing,Chewing Current % PO Negligible Minimum of two criteria Yes Energy Intake (severe) < or equal to 50% Estimated Energy Requirement > or equal to 5 days Interpretation of Weight Loss (severe) >2% in 1 week #3 Nutrition Diagnosis Inadequate oral intake Diagnosis Progress(for reassessment Continues documentation) #2 Nutrition Diagnosis Malnutrition Diagnosis Progress(for reassessment Continues documentation) #1 Nutrition Diagnosis Unintended weight loss Diagnosis Progress(for reassessment Continues documentation) Is patient on ventilator? Yes Is Patient Ambulatory and/or Out of Bed No REE-([facility]-confined to bed) 5335.004 Calculation Used for Recommendations [facility] Additional Notes Protein needs 1.2-2g/k-145g/day Fluid 1ml/kcal or per MD Nutrition Intervention Change Diet Order: Continue TF if medically able Nutrition Support: Supine (12h): Glucerna 1.2 at 100ml/hr with flush of 100 ml q4h. Prone (12h): Glucerna 1.2 at 20 ml/hr with flush of 50 ml q4h. Kcal 1,728 Protein (gm) 86 Fluid (mL) 1,159 Goal #1 TF tolerance Goal #2 Meet at least 75% of energy and protein needs via TF Anticipated Discharge Needs: Unknown at this time Follow-Up By: 12/01/20 Additional Comments F/u TF re-start, vent status, and proning regimen
--- NOTE | 2020-11-27 14:09 | XRay Report ---
CHEST 1 VIEW 11/27/2020 1:04 PM INDICATION / CLINICAL INFORMATION: Right chest tube placement. COMPARISON: Chest one view from earlier today. FINDINGS: SUPPORT DEVICES: A right chest tube has been placed that terminates medially along the right upper lo be. Otherwise unchanged. HEART / MEDIASTINUM: Stable cardiac size with less distinct pneumomediastinum. LUNGS / PLEURA: Bilateral interstitial opacities have improved. No significant pleural effusion. No p neumothorax. ADDITIONAL FINDINGS: Stable subcutaneous gas along the neck and right chest. IMPRESSION: 1. Interval right chest tube placement with good positioning. 2. Less distinct pneumomediastinum. 3. Improved aeration of the lungs. Signer Name: Octavio Garland MD Signed: 11/27/2020 2:04 PM Workstation Name: [id number]
[2020-11-27] MEDS ORDERED: VANCOMYCIN 1,500 MG in SODIUM CHLORIDE 0.9% 500 ML 500 ML IV ONE (15:23)
--- NOTE | 2020-11-27 15:23 | Progress Note ---
Assessment and Plan Cultures: SARS CoV-2 PCR: positive Blood culture: No growth 11/21/2020 tracheal aspirate culture: Staph aureus A/P: 59-year-old male: #Bilateral pneumonia: secondary to COVID-19. Admission labs showed leukocytosis, D-dimer greater than 10,000, ferritin 672, CRP 19.8, LDH 663, creatinine 0.6, procalcitonin 0.51. Completed 5 days of abx, remdesivir. #Staph aureus on ET aspirate culture, ?colonization v/s true disease, difficult to differentiate. #Right-sided pneumothorax and pneumomediastinum: Underwent placement of right- sided chest tube #Acute hypoxic respiratory failure: Failed BiPAP. Remains on the vent. #Elevated d-dimer: DVT scan negative. Unable to get CTA Chest due to patients unstable clinical status #Transaminitis: secondary to COVID-19. Recs: -Staph aureus on ET aspirate culture, ?colonization v/s true disease, difficult to differentiate, remains critically ill, started IV Vancomycin x 7 days -continue steroids per ICU team -Continue prophylactic anticoagulation based on d-dimer per hospital protocol -trend ferritin, LDH, d-dimer, CRP every 2-3 days for risk stratification and to assess disease progression -guarded prognosis Dayday Driscoll MD, FACP [facility], [facility] ([facility] O: [phone] F: [phone] Subjective Date of service: 11/27/20 Principal diagnosis: COVID-19 Interval history: No fever. Remains on the vent, sedated. Noted to have a right-sided pneumothorax and pneumomediastinum. Underwent placement of right-sided chest tube. Objective - Exam Narrative Exam: Physical Exam (reviewed in chart to minimize risk of transmission) Constitutional: deferred Head, Ears, Nose: deferred Eyes: deferred Neck: deferred Oral: deferred Cardiovascular: deferred Respiratory: deferred GI: deferred Musculoskeletal: deferred Skin: deferred Hem/Lymphatic: deferred Psych: deferred Neurological: deferred - Constitutional Vitals: Vital Signs Temp Pulse Resp BP Pulse Ox 98.1 F 65 36 H 114/67 94 11/27/20 12:00 11/27/20 13:15 11/27/20 13:15 11/27/20 13:15 11/27/20 13:15 Temperature -Last 24 Hours Temperature 98.1 F Temperature 97.9 F Temperature 98.9 F Temperature 98.9 F Temperature 97.9 F Temperature 98.6 F - Labs CBC & Chem 7: 11/27/20 06:25 11/27/20 06:25 Labs: Abnormal lab results 11/26/20 11/26/20 11/26/20 Range/Units 08:47 11:20 16:20 WBC (4.5-11.0) K/mm3 Lymph % (Auto) (13.4-35.0) % Lymph # (Auto) (1.2-5.4) K/mm3 Seg Neuts % (Manual) (40.0-70.0) % Seg Neutrophils # (1.8-7.7) K/mm3 Seg Neutrophils # Man (1.8-7.7) K/mm3 Lymphocytes # (Manual) (1.2-5.4) K/mm3 POC ABG pCO2 75.2 H 66.6 H (32.0-48.0) mmHg POC ABG pO2 61.9 L 78.1 L (83-108) mmHg ABG Oxyhemoglobin 90.3 L (94-98) ABG Sodium (136.0-145.0) mmol/L ABG Glucose 243 H 244 H (65-95) mg/dL Carbon Dioxide (22-30) mmol/L BUN (9-20) mg/dL Creatinine (0.8-1.3) mg/dL Glucose (75-100) mg/dL POC Glucose 255 H (70-105) mg/dL Calcium (8.4-10.2) mg/dL AST (5-40) units/L ALT (7-56) units/L Total Protein (6.3-8.2) g/dL Albumin (3.9-5) g/dL Arterial Blood Glucose 243 H 244 H (65-95) mg/dL 11/26/20 11/26/20 11/27/20 Range/Units 17:15 23:41 04:46 WBC (4.5-11.0) K/mm3 Lymph % (Auto) (13.4-35.0) % Lymph # (Auto) (1.2-5.4) K/mm3 Seg Neuts % (Manual) (40.0-70.0) % Seg Neutrophils # (1.8-7.7) K/mm3 Seg Neutrophils # Man (1.8-7.7) K/mm3 Lymphocytes # (Manual) (1.2-5.4) K/mm3 POC ABG pCO2 63.0 H (32.0-48.0) mmHg POC ABG pO2 53.6 L (83-108) mmHg ABG Oxyhemoglobin 87.8 L (94-98) ABG Sodium 115.4 L (136.0-145.0) mmol/L ABG Glucose 219 H (65-95) mg/dL Carbon Dioxide (22-30) mmol/L BUN (9-20) mg/dL Creatinine (0.8-1.3) mg/dL Glucose (75-100) mg/dL POC Glucose 219 H 210 H (70-105) mg/dL Calcium (8.4-10.2) mg/dL AST (5-40) units/L ALT (7-56) units/L Total Protein (6.3-8.2) g/dL Albumin (3.9-5) g/dL Arterial Blood Glucose 219 H (65-95) mg/dL 11/27/20 11/27/20 11/27/20 Range/Units 05:38 06:25 06:25 WBC 13.8 H (4.5-11.0) K/mm3 Lymph % (Auto) 2.0 L (13.4-35.0) % Lymph # (Auto) 0.3 L (1.2-5.4) K/mm3 Seg Neuts % (Manual) 96.0 H (40.0-70.0) % Seg Neutrophils # 12.7 H (1.8-7.7) K/mm3 Seg Neutrophils # Man 13.2 H (1.8-7.7) K/mm3 Lymphocytes # (Manual) 0.0 L (1.2-5.4) K/mm3 POC ABG pCO2 (32.0-48.0) mmHg POC ABG pO2 (83-108) mmHg ABG Oxyhemoglobin (94-98) ABG Sodium (136.0-145.0) mmol/L ABG Glucose (65-95) mg/dL Carbon Dioxide 38 H (22-30) mmol/L BUN 34 H (9-20) mg/dL Creatinine 0.4 L (0.8-1.3) mg/dL Glucose 243 H (75-100) mg/dL POC Glucose 227 H (70-105) mg/dL Calcium 7.9 L (8.4-10.2) mg/dL AST 50 H (5-40) units/L ALT 110 H (7-56) units/L Total Protein 6.1 L (6.3-8.2) g/dL Albumin 2.4 L (3.9-5) g/dL Arterial Blood Glucose (65-95) mg/dL
[2020-11-27] MEDS ORDERED: VANCOMYCIN PHARMACY TO DOSE IV SCH (16:00)
[2020-11-27] MEDS: VANCOMYCIN/NS 1 GM/250 ML 1 GM/250 ML BAG IV SCH ×2 (16:22→16:25)
[2020-11-27] MEDS: INSULIN GLARGINE 100 UNITS/ML SUB-Q SCH (21:31)
[2020-11-28] MEDS: methylPREDNISolone Sod Succinate 125 MG/2 ML INJ IV SCH ×4 (00:02→17:36)
[2020-11-28] MEDS: MINERAL OIL/PETROLATUM, WHITE OPHTH OINT 3.5 GM OU SCH ×5 (00:02→17:38)
[2020-11-28] MEDS: INSULIN LISPRO 100 UNIT/ML SUB-Q SCH ×5 (00:03→23:28)
[2020-11-28] MEDS: MIDAZOLAM 100 MG in SODIUM CHLORIDE 0.9% 80 ML IV SCH (03:37)
[2020-11-28] MEDS: VANCOMYCIN/NS 1 GM/250 ML 1 GM/250 ML BAG IV SCH ×2 (03:38→17:00)
[2020-11-28 04:00] LABS: Hematocrit 38.4 % (35.5-45.6); Hemoglobin 12.7 gm/dl (11.8-15.2); Mean Corpuscular HGB Conc 33 % (32-34); Mean Corpuscular Volume 89 fl (84-94); Platelet Count 211 K/mm3 (140-440); Red Blood Count 4.32 M/mm3 (3.65-5.03); Red Cell Distribution Width 13.7 % (13.2-15.2)
[2020-11-28] MEDS: fentaNYL DRIP Premix 2,000 MCG/100 ML BAG IV SCH ×3 (04:13→17:35)
--- NOTE | 2020-11-28 04:53 | XRay Report ---
CHEST 1 VIEW 11/28/2020 3:26 AM INDICATION / CLINICAL INFORMATION: follow up respiratory failure. COMPARISON: 11/27/2020 FINDINGS: SUPPORT DEVICES: Lines and tubes again project in expected position HEART / MEDIASTINUM: No significant abnormality. LUNGS / PLEURA: Bilateral parenchymal disease, unchanged. New small left pneumothorax. ADDITIONAL FINDINGS: Subcutaneous emphysema right chest and both supraclavicular regions, unchanged IMPRESSION: 1. New small left pneumothorax. 2. Bilateral pneumonia, unchanged CRITICAL RESULT: Left pneumothorax Time of Discovery: 3:47 AM central time 11/28/2020 Time of Communication: 3:48 AM Licensed Practitioner Receiving Report: Nurse Nasim Read Back Performed: Yes. Signer Name: Royce Payan MD Signed: 11/28/2020 4:49 AM Workstation Name: [id number]
[2020-11-28 05:18] LABS: Alanine Aminotransferase 86 units/L (7-56); Albumin 2.3 g/dL (3.9-5); Blood Urea Nitrogen 37 mg/dL (9-20); Calcium 8.1 mg/dL (8.4-10.2); Hemolysis Index 2
[2020-11-28 05:21] LABS: BUN/Creatinine Ratio 93
--- NOTE | 2020-11-28 05:29 | Event Note ---
Date: 11/28/20 Chest x-ray this morning shows small left-sided pneumothorax. No emergent action needed, advised nurse to notify Dr. Kumar (General Surgry) this am.
[2020-11-28] MEDS: CISATRACURIUM IV SCH (05:56)
[2020-11-28] MEDS: SODIUM CHLORIDE 0.9% IV SCH (05:56)
[2020-11-28 06:15] LABS: Total Cells Counted 100
[2020-11-28 06:18] LABS: Platelet Estimate Consistent w Auto
--- NOTE | 2020-11-28 09:08 | Progress Note ---
Assessment and Plan 59 y/o male with acute respiratory failure, abnormal CXR and abnormal lab studies. 11/28/20: Second chest tube today. Once chest tube in, will likely increase PEEP to 18 and repeat gas about 2 hours after this. Continue paralytic today. No proning now that patient will have bilateral chest tubes. VEry guarded prognosis. 11/27/20: Spoke with surgery who have agreed to evaluate and placed chest tube on either right or left side pending CXR reading. Will monitor for 36-48 hours and if no resolution, will need chest tube placed on opposite side as well. Once placed, will likely paralyze again but hold on proning for now. Guarded prognosis. 11/26/20: Paralytics are off. Continue current level of sedation. Will prone for 12 hours today and repeat ABG in the am. Continue lung protective strategy. Guarded prognosis. 11/25/20: Prone again to 16 hours, will prone at 12-12:30. Continue paralytics for 24 more hours. Discussed the idea of permissive hypercapnea again today and as long as pH is above 7.2 no changes should be made to TV and or RR without discussing with physician. Continue to monitor urine output, guarded prognosis. Hold on lasix therapy today. 11/24/20: Prone again today. Will try 48 hours of paralyzing the patient to see if this will help with oxygenation. Will speak with RT's about permissive hypercapnea and that pH's of 7.2 and greater are ok. Continue high doses steroids. Prognosis is still very very guarded. If not improvement with paralytics, will attempt transfer. 11/23/20: Prone again today for 12 hours. Continue High Dose steroids. Hold on lasix given marginal BP's. Prognosis is very very guarded to poor. Will continue all supportive measures. If not able to wean from 100%, will attempt transfer for ECMO. 11/20/20: WIll change to solumedrol 60q6 today. Hold on lasix today. Given his increasing oxygen requirement, will likely end up intubated. OVerall prognosis is very poor. 11/19/20: lasix 40mg IV x1 today. Will speak with ID but may consider increasing steroids to see if this will help with oxygenation. Continue Remdesivir. Prognosis remains guarded. 11/18/20: Continue bipap, goal is to attempt to prevent prolong intubation for as long as possible. Lasix again today. Steroids and Remdesivir. Guarded Prognosis. 11/17/20: Continue bipap therapy. Monitor mental state. High risk for Intubation. Continue BID anticoagulation. Prone if able. BNP was elevated but not grossly elevated. Will still give lasix with hopes of achieving net negative state. STeroids and remdesivir. Overall prognosis is guarded, extremely guarded. 1. Pulm- Agree with concern for covid. Agree with empiric abx but procal is only mildly elevated. Await cultures. Continue bipap therapy for now but will need to monitor closely. [facility] has ordered CTA, but I spoke with pharmacy and we will empirically treat with BID lovenox therapy. COntinue empiric steroid thera py for COVID until studies back. Not sure that he will be able to prone on bipap therapy. Monitor volume status and run as dry as possible. 2. Renal-normal function but all electrolytes abnormal. HYponatremia and Hypochloremia volume up vs volume down. Sent BNP. Would suggest obtaning echo as well. Not sure what to make of elevated lactate unless that is from increased work of breathing or damage to other tissue unknown. May need to check LFT's and Coags as well. 3. Guarded Prognosis. CCT 31 minutes. Subjective Date of service: 11/28/20 Principal diagnosis: COVID-19 Interval history: PTX now seen for sure on left. Spoke with surgery who will place surgical chest tube on left this am. Some bleeding from around site on right. Re-inforced, may need a stitch. Oxygen is stable. Still on 80% and 16 of PEEP. Still paralyzed. Objective Vital Signs - 12hr 11/27/20 11/27/20 11/27/20 21:15 21:30 21:45 Temperature Pulse Rate 64 64 64 Pulse Rate [ From Monitor] Respiratory 19 12 12 Rate Blood Pressure 120/75 110/68 105/68 O2 Sat by Pulse 92 93 92 Oximetry 11/27/20 11/27/20 11/27/20 22:00 22:02 22:15 Temperature Pulse Rate 63 63 70 Pulse Rate [ From Monitor] Respiratory 17 14 11 L Rate Blood Pressure 110/69 110/69 106/64 O2 Sat by Pulse 91 92 93 Oximetry 11/27/20 11/27/20 11/27/20 22:30 22:45 23:00 Temperature Pulse Rate 66 62 60 Pulse Rate [ From Monitor] Respiratory 12 11 L 11 L Rate Blood Pressure 109/62 106/62 104/64 O2 Sat by Pulse 91 92 91 Oximetry 11/27/20 11/27/20 11/27/20 23:15 23:30 23:45 Temperature Pulse Rate 62 64 65 Pulse Rate [ From Monitor] Respiratory 11 L 13 14 Rate Blood Pressure 97/64 107/63 105/66 O2 Sat by Pulse 92 93 92 Oximetry 11/27/20 11/28/20 11/28/20 23:53 00:00 00:15 Temperature 98.4 F Pulse Rate 63 63 Pulse Rate [ 66 From Monitor] Respiratory 10 L 11 L Rate Blood Pressure 102/64 108/65 O2 Sat by Pulse 93 91 Oximetry 11/28/20 11/28/20 11/28/20 00:26 00:30 00:45 Temperature Pulse Rate 66 63 63 Pulse Rate [ From Monitor] Respiratory 10 L 12 Rate Blood Pressure 108/65 100/63 108/67 O2 Sat by Pulse 92 92 92 Oximetry 11/28/20 11/28/20 11/28/20 01:00 01:15 01:30 Temperature Pulse Rate 67 66 65 Pulse Rate [ From Monitor] Respiratory 9 L 11 L 11 L Rate Blood Pressure 107/66 113/65 109/64 O2 Sat by Pulse 93 92 93 Oximetry 11/28/20 11/28/20 11/28/20 01:45 02:00 02:15 Temperature Pulse Rate 64 65 64 Pulse Rate [ From Monitor] Respiratory 16 12 11 L Rate Blood Pressure 101/62 107/65 95/61 O2 Sat by Pulse 92 90 91 Oximetry 11/28/20 11/28/20 11/28/20 02:30 02:45 03:00 Temperature Pulse Rate 65 68 67 Pulse Rate [ From Monitor] Respiratory 11 L 13 10 L Rate Blood Pressure 109/61 106/65 112/62 O2 Sat by Pulse 92 92 93 Oximetry 11/28/20 11/28/20 11/28/20 03:15 03:19 03:30 Temperature 98.4 F Pulse Rate 69 66 Pulse Rate [ From Monitor] Respiratory 13 11 L Rate Blood Pressure 103/63 113/64 O2 Sat by Pulse 93 92 Oximetry 11/28/20 11/28/20 11/28/20 03:45 04:00 04:15 Temperature Pulse Rate 66 64 67 Pulse Rate [ 66 From Monitor] Respiratory 10 L 11 L 12 Rate Blood Pressure 102/63 108/68 108/61 O2 Sat by Pulse 92 92 93 Oximetry 11/28/20 11/28/20 11/28/20 04:16 04:30 04:45 Temperature Pulse Rate 66 65 69 Pulse Rate [ From Monitor] Respiratory 14 14 Rate Blood Pressure 108/61 109/65 99/62 O2 Sat by Pulse 94 94 93 Oximetry 11/28/20 11/28/20 11/28/20 05:00 05:16 05:30 Temperature Pulse Rate 65 59 L 60 Pulse Rate [ From Monitor] Respiratory 17 14 13 Rate Blood Pressure 99/62 93/54 97/60 O2 Sat by Pulse 92 92 93 Oximetry 11/28/20 11/28/20 11/28/20 05:45 06:00 07:50 Temperature Pulse Rate 61 64 66 Pulse Rate [ From Monitor] Respiratory 21 11 L Rate Blood Pressure 98/60 95/62 97/56 O2 Sat by Pulse 92 93 95 Oximetry Constitutional: alert ENT: other (Now intubated) Ascultation: Bilateral: rales, rhonchi Percussion: Bilateral: not dull Cardiovascular: regular rate and rhythm Gastrointestinal: soft, non-tender CBC and BMP: 11/28/20 03:45 11/28/20 03:45 ABG, PT/INR, D-dimer: ABG ABG pH 7.374 (7.320-7.450) 11/28/20 03:46 POC ABG pCO2 68.4 mmHg (32.0-48.0) H 11/28/20 03:46 POC ABG pO2 55.4 mmHg (83-108) L 11/28/20 03:46 POC ABG HCO3 39 11/28/20 03:46 PT/INR, D-dimer D-Dimer 926.11 ng/mlDDU (0-234) H 11/26/20 06:04 Abnormal lab findings: Abnormal Labs 11/15/20 11/15/20 11/15/20 10:39 10:39 10:39 WBC 14.3 H RBC 5.17 H Lymph % (Auto) 7.8 L [place] % (Auto) 7.6 H Lymph # (Auto) 1.1 L [place] # (Auto) 1.1 H Baso # (Auto) Seg Neutrophils % 83.3 H Seg Neuts % (Manual) Lymphocytes % (Manual) Seg Neutrophils # 11.9 H Seg Neutrophils # Man Lymphocytes # (Manual) D-Dimer ABG pH POC ABG pCO2 POC ABG pO2 ABG Oxyhemoglobin ABG Sodium ABG Potassium ABG Chloride ABG Glucose Sodium 128 L Chloride 96.0 L Carbon Dioxide BUN Creatinine 0.7 L Glucose 238 H POC Glucose Hemoglobin A1c Lactic Acid 4.10 H* Calcium 7.0 L Ferritin Total Bilirubin 1.40 H AST 49 H ALT 70 H Alkaline Phosphatase Lactate Dehydrogenase 663 H C-Reactive Protein 19.80 H Total Protein Albumin 2.9 L Arterial Blood Glucose Arterial Blood Ionized Calcium Ur Specific [place] Coronavirus (PCR) 11/15/20 11/15/20 11/15/20 10:39 10:39 11:20 WBC RBC Lymph % (Auto) [place] % (Auto) Lymph # (Auto) [place] # (Auto) Baso # (Auto) Seg Neutrophils % Seg Neuts % (Manual) Lymphocytes % (Manual) Seg Neutrophils # Seg Neutrophils # Man Lymphocytes # (Manual) D-Dimer > 79767 H ABG pH POC ABG pCO2 29.9 L POC ABG pO2 137.3 H ABG Oxyhemoglobin ABG Sodium 126.5 L ABG Potassium ABG Chloride ABG Glucose 248 H Sodium Chloride Carbon Dioxide BUN Creatinine Glucose POC Glucose Hemoglobin A1c Lactic Acid Calcium Ferritin 672.8 H Total Bilirubin AST ALT Alkaline Phosphatase Lactate Dehydrogenase C-Reactive Protein Total Protein Albumin Arterial Blood Glucose 248 H Arterial Blood Ionized Calcium 4.1 L Ur Specific [place] Coronavirus (PCR) 11/15/20 11/15/20 11/16/20 13:41 23:41 01:45 WBC RBC Lymph % (Auto) [place] % (Auto) Lymph # (Auto) [place] # (Auto) Baso # (Auto) Seg Neutrophils % Seg Neuts % (Manual) Lymphocytes % (Manual) Seg Neutrophils # Seg Neutrophils # Man Lymphocytes # (Manual) D-Dimer ABG pH POC ABG pCO2 POC ABG pO2 ABG Oxyhemoglobin ABG Sodium ABG Potassium ABG Chloride ABG Glucose Sodium Chloride Carbon Dioxide BUN Creatinine Glucose POC Glucose 284 H Hemoglobin A1c Lactic Acid 2.30 H* Calcium Ferritin Total Bilirubin AST ALT Alkaline Phosphatase Lactate Dehydrogenase C-Reactive Protein Total Protein Albumin Arterial Blood Glucose Arterial Blood Ionized Calcium Ur Specific [place] 1.037 H Coronavirus (PCR) 11/16/20 11/16/20 11/16/20 05:29 05:29 05:29 WBC 12.9 H RBC Lymph % (Auto) 4.5 L [place] % (Auto) Lymph # (Auto) 0.6 L [place] # (Auto) Baso # (Auto) 0.2 H Seg Neutrophils % 89.8 H Seg Neuts % (Manual) Lymphocytes % (Manual) Seg Neutrophils # 11.5 H Seg Neutrophils # Man Lymphocytes # (Manual) D-Dimer ABG pH POC ABG pCO2 POC ABG pO2 ABG Oxyhemoglobin ABG Sodium ABG Potassium ABG Chloride ABG Glucose Sodium 131 L Chloride Carbon Dioxide 21 L BUN 23 H Creatinine 0.6 L Glucose 342 H POC Glucose Hemoglobin A1c Lactic Acid 2.60 H* Calcium 7.0 L Ferritin Total Bilirubin AST ALT Alkaline Phosphatase Lactate Dehydrogenase C-Reactive Protein Total Protein Albumin 2.4 L Arterial Blood Glucose Arterial Blood Ionized Calcium Ur Specific [place] Coronavirus (PCR) 11/16/20 11/16/20 11/16/20 05:29 08:11 12:11 WBC RBC Lymph % (Auto) [place] % (Auto) Lymph # (Auto) [place] # (Auto) Baso # (Auto) Seg Neutrophils % Seg Neuts % (Manual) Lymphocytes % (Manual) Seg Neutrophils # Seg Neutrophils # Man Lymphocytes # (Manual) D-Dimer ABG pH POC ABG pCO2 POC ABG pO2 ABG Oxyhemoglobin ABG Sodium ABG Potassium ABG Chloride ABG Glucose Sodium Chloride Carbon Dioxide BUN Creatinine Glucose POC Glucose 329 H 320 H Hemoglobin A1c 11.7 H Lactic Acid Calcium Ferritin Total Bilirubin AST ALT Alkaline Phosphatase Lactate Dehydrogenase C-Reactive Protein Total Protein Albumin Arterial Blood Glucose Arterial Blood Ionized Calcium Ur Specific [place] Coronavirus (PCR) 11/16/20 11/16/20 11/16/20 16:13 21:29 Unknown WBC RBC Lymph % (Auto) [place] % (Auto) Lymph # (Auto) [place] # (Auto) Baso # (Auto) Seg Neutrophils % Seg Neuts % (Manual) Lymphocytes % (Manual) Seg Neutrophils # Seg Neutrophils # Man Lymphocytes # (Manual) D-Dimer ABG pH POC ABG pCO2 POC ABG pO2 ABG Oxyhemoglobin ABG Sodium ABG Potassium ABG Chloride ABG Glucose Sodium Chloride Carbon Dioxide BUN Creatinine Glucose POC Glucose 257 H 376 H Hemoglobin A1c Lactic Acid Calcium Ferritin Total Bilirubin AST ALT Alkaline Phosphatase Lactate Dehydrogenase C-Reactive Protein Total Protein Albumin Arterial Blood Glucose Arterial Blood Ionized Calcium Ur Specific [place] Coronavirus (PCR) Positive A 11/17/20 11/17/20 11/17/20 07:42 12:07 17:25 WBC RBC Lymph % (Auto) [place] % (Auto) Lymph # (Auto) [place] # (Auto) Baso # (Auto) Seg Neutrophils % Seg Neuts % (Manual) Lymphocytes % (Manual) Seg Neutrophils # Seg Neutrophils # Man Lymphocytes # (Manual) D-Dimer ABG pH POC ABG pCO2 POC ABG pO2 ABG Oxyhemoglobin ABG Sodium ABG Potassium ABG Chloride ABG Glucose Sodium Chloride Carbon Dioxide BUN Creatinine Glucose POC Glucose 231 H 380 H 302 H Hemoglobin A1c Lactic Acid Calcium Ferritin Total Bilirubin AST ALT Alkaline Phosphatase Lactate Dehydrogenase C-Reactive Protein Total Protein Albumin Arterial Blood Glucose Arterial Blood Ionized Calcium Ur Specific [place] Coronavirus (PCR) 11/17/20 11/18/20 11/18/20 21:53 04:25 07:45 WBC RBC Lymph % (Auto) [place] % (Auto) Lymph # (Auto) [place] # (Auto) Baso # (Auto) Seg Neutrophils % Seg Neuts % (Manual) Lymphocytes % (Manual) Seg Neutrophils # Seg Neutrophils # Man Lymphocytes # (Manual) D-Dimer ABG pH POC ABG pCO2 POC ABG pO2 ABG Oxyhemoglobin ABG Sodium ABG Potassium ABG Chloride ABG Glucose Sodium 136 L Chloride Carbon Dioxide BUN 24 H Creatinine 0.6 L Glucose 212 H POC Glucose 293 H 216 H Hemoglobin A1c Lactic Acid Calcium 7.4 L Ferritin Total Bilirubin AST 41 H ALT Alkaline Phosphatase 142 H Lactate Dehydrogenase C-Reactive Protein Total Protein Albumin 2.3 L Arterial Blood Glucose Arterial Blood Ionized Calcium Ur Specific [place] Coronavirus (PCR) 11/18/20 11/18/20 11/18/20 12:28 15:58 21:37 WBC RBC Lymph % (Auto) [place] % (Auto) Lymph # (Auto) [place] # (Auto) Baso # (Auto) Seg Neutrophils % Seg Neuts % (Manual) Lymphocytes % (Manual) Seg Neutrophils # Seg Neutrophils # Man Lymphocytes # (Manual) D-Dimer ABG pH POC ABG pCO2 POC ABG pO2 ABG Oxyhemoglobin ABG Sodium ABG Potassium ABG Chloride ABG Glucose Sodium Chloride Carbon Dioxide BUN Creatinine Glucose POC Glucose 165 H 220 H 311 H Hemoglobin A1c Lactic Acid Calcium Ferritin Total Bilirubin AST ALT Alkaline Phosphatase Lactate Dehydrogenase C-Reactive Protein Total Protein Albumin Arterial Blood Glucose Arterial Blood Ionized Calcium Ur Specific [place] Coronavirus (PCR) 11/19/20 11/19/20 11/19/20 05:35 07:40 12:39 WBC RBC Lymph % (Auto) [place] % (Auto) Lymph # (Auto) [place] # (Auto) Baso # (Auto) Seg Neutrophils % Seg Neuts % (Manual) Lymphocytes % (Manual) Seg Neutrophils # Seg Neutrophils # Man Lymphocytes # (Manual) D-Dimer ABG pH POC ABG pCO2 POC ABG pO2 ABG Oxyhemoglobin ABG Sodium ABG Potassium ABG Chloride ABG Glucose Sodium 132 L Chloride Carbon Dioxide BUN 25 H Creatinine 0.5 L Glucose 179 H POC Glucose 149 H 306 H Hemoglobin A1c Lactic Acid Calcium 7.5 L Ferritin Total Bilirubin AST ALT Alkaline Phosphatase 139 H Lactate Dehydrogenase C-Reactive Protein Total Protein Albumin 2.4 L Arterial Blood Glucose Arterial Blood Ionized Calcium Ur Specific [place] Coronavirus (PCR) 11/19/20 11/19/20 11/20/20 16:17 21:25 08:30 WBC RBC Lymph % (Auto) [place] % (Auto) Lymph # (Auto) [place] # (Auto) Baso # (Auto) Seg Neutrophils % Seg Neuts % (Manual) Lymphocytes % (Manual) Seg Neutrophils # Seg Neutrophils # Man Lymphocytes # (Manual) D-Dimer ABG pH POC ABG pCO2 POC ABG pO2 ABG Oxyhemoglobin ABG Sodium ABG Potassium ABG Chloride ABG Glucose Sodium Chloride Carbon Dioxide BUN Creatinine Glucose POC Glucose 364 H 347 H 141 H Hemoglobin A1c Lactic Acid Calcium Ferritin Total Bilirubin AST ALT Alkaline Phosphatase Lactate Dehydrogenase C-Reactive Protein Total Protein Albumin Arterial Blood Glucose Arterial Blood Ionized Calcium Ur Specific [place] Coronavirus (PCR) 11/20/20 11/20/20 11/20/20 08:50 11:32 16:19 WBC RBC Lymph % (Auto) [place] % (Auto) Lymph # (Auto) [place] # (Auto) Baso # (Auto) Seg Neutrophils % Seg Neuts % (Manual) Lymphocytes % (Manual) Seg Neutrophils # Seg Neutrophils # Man Lymphocytes # (Manual) D-Dimer ABG pH POC ABG pCO2 POC ABG pO2 ABG Oxyhemoglobin ABG Sodium ABG Potassium ABG Chloride ABG Glucose Sodium 132 L Chloride 97.6 L Carbon Dioxide BUN 26 H Creatinine 0.5 L Glucose 201 H POC Glucose 296 H 327 H Hemoglobin A1c Lactic Acid Calcium 7.9 L Ferritin Total Bilirubin AST ALT Alkaline Phosphatase 137 H Lactate Dehydrogenase C-Reactive Protein Total Protein Albumin 2.6 L Arterial Blood Glucose Arterial Blood Ionized Calcium Ur Specific [place] Coronavirus (PCR) 11/20/20 11/21/20 11/21/20 22:09 07:59 13:51 WBC RBC Lymph % (Auto) [place] % (Auto) Lymph # (Auto) [place] # (Auto) Baso # (Auto) Seg Neutrophils % Seg Neuts % (Manual) Lymphocytes % (Manual) Seg Neutrophils # Seg Neutrophils # Man Lymphocytes # (Manual) D-Dimer ABG pH POC ABG pCO2 POC ABG pO2 ABG Oxyhemoglobin ABG Sodium ABG Potassium ABG Chloride ABG Glucose Sodium Chloride Carbon Dioxide BUN Creatinine Glucose POC Glucose 311 H 218 H 304 H Hemoglobin A1c Lactic Acid Calcium Ferritin Total Bilirubin AST ALT Alkaline Phosphatase Lactate Dehydrogenase C-Reactive Protein Total Protein Albumin Arterial Blood Glucose Arterial Blood Ionized Calcium Ur Specific [place] Coronavirus (PCR) 11/21/20 11/21/20 11/21/20 16:09 21:34 23:00 WBC RBC Lymph % (Auto) [place] % (Auto) Lymph # (Auto) [place] # (Auto) Baso # (Auto) Seg Neutrophils % Seg Neuts % (Manual) Lymphocytes % (Manual) Seg Neutrophils # Seg Neutrophils # Man Lymphocytes # (Manual) D-Dimer ABG pH 7.206 L POC ABG pCO2 59.3 H POC ABG pO2 76.7 L ABG Oxyhemoglobin ABG Sodium 133.1 L ABG Potassium ABG Chloride ABG Glucose 320 H Sodium Chloride Carbon Dioxide BUN Creatinine Glucose POC Glucose 239 H 279 H Hemoglobin A1c Lactic Acid Calcium Ferritin Total Bilirubin AST ALT Alkaline Phosphatase Lactate Dehydrogenase C-Reactive Protein Total Protein Albumin Arterial Blood Glucose 320 H Arterial Blood Ionized Calcium Ur Specific [place] Coronavirus (PCR) 11/22/20 11/22/20 11/22/20 04:52 04:52 04:52 WBC RBC Lymph % (Auto) [place] % (Auto) Lymph # (Auto) [place] # (Auto) Baso # (Auto) Seg Neutrophils % Seg Neuts % (Manual) Lymphocytes % (Manual) Seg Neutrophils # Seg Neutrophils # Man Lymphocytes # (Manual) D-Dimer 1858.36 H ABG pH POC ABG pCO2 POC ABG pO2 ABG Oxyhemoglobin ABG Sodium ABG Potassium ABG Chloride ABG Glucose Sodium Chloride Carbon Dioxide BUN Creatinine Glucose POC Glucose Hemoglobin A1c Lactic Acid Calcium Ferritin 734.2 H Total Bilirubin AST ALT Alkaline Phosphatase Lactate Dehydrogenase 404 H C-Reactive Protein 2.80 H Total Protein Albumin Arterial Blood Glucose Arterial Blood Ionized Calcium Ur Specific [place] Coronavirus (PCR) 11/22/20 11/22/20 11/22/20 05:12 05:39 11:50 WBC RBC Lymph % (Auto) [place] % (Auto) Lymph # (Auto) [place] # (Auto) Baso # (Auto) Seg Neutrophils % Seg Neuts % (Manual) Lymphocytes % (Manual) Seg Neutrophils # Seg Neutrophils # Man Lymphocytes # (Manual) D-Dimer ABG pH POC ABG pCO2 POC ABG pO2 51.0 L ABG Oxyhemoglobin ABG Sodium 131.2 L ABG Potassium 4.6 H ABG Chloride ABG Glucose 317 H Sodium Chloride Carbon Dioxide BUN Creatinine Glucose POC Glucose 340 H 417 H Hemoglobin A1c Lactic Acid Calcium Ferritin Total Bilirubin AST ALT Alkaline Phosphatase Lactate Dehydrogenase C-Reactive Protein Total Protein Albumin Arterial Blood Glucose 317 H Arterial Blood Ionized Calcium 4.4 L Ur Specific [place] Coronavirus (PCR) 11/22/20 11/22/20 11/22/20 12:22 12:22 17:10 WBC 14.4 H RBC Lymph % (Auto) [place] % (Auto) Lymph # (Auto) [place] # (Auto) Baso # (Auto) Seg Neutrophils % Seg Neuts % (Manual) 98.0 H Lymphocytes % (Manual) Seg Neutrophils # Seg Neutrophils # Man 14.1 H Lymphocytes # (Manual) 0.0 L D-Dimer ABG pH POC ABG pCO2 POC ABG pO2 ABG Oxyhemoglobin ABG Sodium ABG Potassium ABG Chloride ABG Glucose Sodium 132 L Chloride Carbon Dioxide BUN 36 H Creatinine 0.6 L Glucose 219 H POC Glucose 157 H Hemoglobin A1c Lactic Acid Calcium 7.2 L Ferritin Total Bilirubin AST ALT Alkaline Phosphatase Lactate Dehydrogenase C-Reactive Protein Total Protein Albumin Arterial Blood Glucose Arterial Blood Ionized Calcium Ur Specific [place] Coronavirus (PCR) 11/22/20 11/22/20 11/22/20 18:33 21:44 23:47 WBC RBC Lymph % (Auto) [place] % (Auto) Lymph # (Auto) [place] # (Auto) Baso # (Auto) Seg Neutrophils % Seg Neuts % (Manual) Lymphocytes % (Manual) Seg Neutrophils # Seg Neutrophils # Man Lymphocytes # (Manual) D-Dimer ABG pH POC ABG pCO2 POC ABG pO2 60.8 L ABG Oxyhemoglobin 88.1 L ABG Sodium 135.1 L ABG Potassium ABG Chloride ABG Glucose 141 H Sodium Chloride Carbon Dioxide BUN Creatinine Glucose POC Glucose 117 H 123 H Hemoglobin A1c Lactic Acid Calcium Ferritin Total Bilirubin AST ALT Alkaline Phosphatase Lactate Dehydrogenase C-Reactive Protein Total Protein Albumin Arterial Blood Glucose 141 H Arterial Blood Ionized Calcium Ur Specific [place] Coronavirus (PCR) 11/23/20 11/23/20 11/23/20 04:00 04:00 05:23 WBC 14.4 H RBC Lymph % (Auto) [place] % (Auto) Lymph # (Auto) [place] # (Auto) Baso # (Auto) Seg Neutrophils % Seg Neuts % (Manual) Lymphocytes % (Manual) Seg Neutrophils # Seg Neutrophils # Man Lymphocytes # (Manual) D-Dimer ABG pH POC ABG pCO2 POC ABG pO2 ABG Oxyhemoglobin ABG Sodium ABG Potassium ABG Chloride ABG Glucose Sodium 136 L Chloride Carbon Dioxide BUN 33 H Creatinine 0.6 L Glucose 115 H POC Glucose 173 H Hemoglobin A1c Lactic Acid Calcium 7.1 L Ferritin Total Bilirubin AST 64 H ALT 75 H Alkaline Phosphatase Lactate Dehydrogenase C-Reactive Protein Total Protein 5.9 L D Albumin 2.4 L Arterial Blood Glucose Arterial Blood Ionized Calcium Ur Specific [place] Coronavirus (PCR) 11/23/20 11/23/20 11/23/20 05:40 11:27 17:10 WBC RBC Lymph % (Auto) [place] % (Auto) Lymph # (Auto) [place] # (Auto) Baso # (Auto) Seg Neutrophils % Seg Neuts % (Manual) Lymphocytes % (Manual) Seg Neutrophils # Seg Neutrophils # Man Lymphocytes # (Manual) D-Dimer ABG pH POC ABG pCO2 POC ABG pO2 56.5 L ABG Oxyhemoglobin ABG Sodium ABG Potassium ABG Chloride 109.0 H ABG Glucose 114 H Sodium Chloride Carbon Dioxide BUN Creatinine Glucose POC Glucose 114 H 136 H Hemoglobin A1c Lactic Acid Calcium Ferritin Total Bilirubin AST ALT Alkaline Phosphatase Lactate Dehydrogenase C-Reactive Protein Total Protein Albumin Arterial Blood Glucose 114 H Arterial Blood Ionized Calcium 4.5 L Ur Specific [place] Coronavirus (PCR) 11/24/20 11/24/20 11/24/20 05:14 05:14 05:14 WBC RBC Lymph % (Auto) [place] % (Auto) Lymph # (Auto) [place] # (Auto) Baso # (Auto) Seg Neutrophils % Seg Neuts % (Manual) Lymphocytes % (Manual) Seg Neutrophils # Seg Neutrophils # Man Lymphocytes # (Manual) D-Dimer 1433.39 H ABG pH POC ABG pCO2 POC ABG pO2 ABG Oxyhemoglobin ABG Sodium ABG Potassium ABG Chloride ABG Glucose Sodium Chloride Carbon Dioxide BUN Creatinine Glucose POC Glucose Hemoglobin A1c Lactic Acid Calcium Ferritin 997.5 H Total Bilirubin AST ALT Alkaline Phosphatase Lactate Dehydrogenase 463 H C-Reactive Protein Total Protein Albumin Arterial Blood Glucose Arterial Blood Ionized Calcium Ur Specific [place] Coronavirus (PCR) 11/24/20 11/24/20 11/24/20 05:31 05:36 12:05 WBC RBC Lymph % (Auto) [place] % (Auto) Lymph # (Auto) [place] # (Auto) Baso # (Auto) Seg Neutrophils % Seg Neuts % (Manual) Lymphocytes % (Manual) Seg Neutrophils # Seg Neutrophils # Man Lymphocytes # (Manual) D-Dimer ABG pH POC ABG pCO2 POC ABG pO2 57.2 L ABG Oxyhemoglobin ABG Sodium ABG Potassium ABG Chloride ABG Glucose 180 H Sodium Chloride Carbon Dioxide BUN Creatinine Glucose POC Glucose 199 H 143 H Hemoglobin A1c Lactic Acid Calcium Ferritin Total Bilirubin AST ALT Alkaline Phosphatase Lactate Dehydrogenase C-Reactive Protein Total Protein Albumin Arterial Blood Glucose 180 H Arterial Blood Ionized Calcium 4.5 L Ur Specific [place] Coronavirus (PCR) 11/24/20 11/24/20 11/24/20 12:14 17:47 23:47 WBC RBC Lymph % (Auto) [place] % (Auto) Lymph # (Auto) [place] # (Auto) Baso # (Auto) Seg Neutrophils % Seg Neuts % (Manual) Lymphocytes % (Manual) Seg Neutrophils # Seg Neutrophils # Man Lymphocytes # (Manual) D-Dimer ABG pH 7.261 L POC ABG pCO2 59.7 H POC ABG pO2 75.7 L ABG Oxyhemoglobin 92.5 L ABG Sodium ABG Potassium ABG Chloride 108.0 H ABG Glucose 150 H Sodium Chloride Carbon Dioxide BUN Creatinine Glucose POC Glucose 223 H 179 H Hemoglobin A1c Lactic Acid Calcium Ferritin Total Bilirubin AST ALT Alkaline Phosphatase Lactate Dehydrogenase C-Reactive Protein Total Protein Albumin Arterial Blood Glucose 150 H Arterial Blood Ionized Calcium Ur Specific [place] Coronavirus (PCR) 11/25/20 11/25/20 11/25/20 03:29 05:07 05:15 WBC 13.9 H RBC Lymph % (Auto) [place] % (Auto) Lymph # (Auto) [place] # (Auto) Baso # (Auto) Seg Neutrophils % Seg Neuts % (Manual) 97.0 H Lymphocytes % (Manual) Seg Neutrophils # Seg Neutrophils # Man 13.5 H Lymphocytes # (Manual) 0.0 L D-Dimer ABG pH 7.272 L POC ABG pCO2 69.0 H POC ABG pO2 132.9 H ABG Oxyhemoglobin ABG Sodium ABG Potassium ABG Chloride ABG Glucose 174 H Sodium Chloride Carbon Dioxide BUN Creatinine Glucose POC Glucose 168 H Hemoglobin A1c Lactic Acid Calcium Ferritin Total Bilirubin AST ALT Alkaline Phosphatase Lactate Dehydrogenase C-Reactive Protein Total Protein Albumin Arterial Blood Glucose 174 H Arterial Blood Ionized Calcium Ur Specific [place] Coronavirus (PCR) 11/25/20 11/25/20 11/25/20 05:15 11:25 17:35 WBC RBC Lymph % (Auto) [place] % (Auto) Lymph # (Auto) [place] # (Auto) Baso # (Auto) Seg Neutrophils % Seg Neuts % (Manual) Lymphocytes % (Manual) Seg Neutrophils # Seg Neutrophils # Man Lymphocytes # (Manual) D-Dimer ABG pH POC ABG pCO2 POC ABG pO2 ABG Oxyhemoglobin ABG Sodium ABG Potassium ABG Chloride ABG Glucose Sodium Chloride Carbon Dioxide BUN 29 H Creatinine 0.5 L Glucose 161 H POC Glucose 224 H 228 H Hemoglobin A1c Lactic Acid Calcium 7.8 L Ferritin Total Bilirubin AST 89 H ALT 129 H Alkaline Phosphatase Lactate Dehydrogenase C-Reactive Protein Total Protein 5.8 L Albumin 2.5 L Arterial Blood Glucose Arterial Blood Ionized Calcium Ur Specific [place] Coronavirus (PCR) 11/25/20 11/25/20 11/26/20 20:45 23:28 04:00 WBC RBC Lymph % (Auto) [place] % (Auto) Lymph # (Auto) [place] # (Auto) Baso # (Auto) Seg Neutrophils % Seg Neuts % (Manual) Lymphocytes % (Manual) Seg Neutrophils # Seg Neutrophils # Man Lymphocytes # (Manual) D-Dimer ABG pH POC ABG pCO2 POC ABG pO2 ABG Oxyhemoglobin ABG Sodium ABG Potassium ABG Chloride ABG Glucose Sodium Chloride Carbon Dioxide BUN Creatinine Glucose POC Glucose 177 H 243 H Hemoglobin A1c Lactic Acid Calcium Ferritin 778.8 H Total Bilirubin AST ALT Alkaline Phosphatase Lactate Dehydrogenase C-Reactive Protein Total Protein Albumin Arterial Blood Glucose Arterial Blood Ionized Calcium Ur Specific [place] Coronavirus (PCR) 11/26/20 11/26/20 11/26/20 04:00 05:34 06:04 WBC RBC Lymph % (Auto) [place] % (Auto) Lymph # (Auto) [place] # (Auto) Baso # (Auto) Seg Neutrophils % Seg Neuts % (Manual) Lymphocytes % (Manual) Seg Neutrophils # Seg Neutrophils # Man Lymphocytes # (Manual) D-Dimer 926.11 H ABG pH POC ABG pCO2 POC ABG pO2 ABG Oxyhemoglobin ABG Sodium ABG Potassium ABG Chloride ABG Glucose Sodium Chloride Carbon Dioxide 39 H D BUN 30 H Creatinine 0.5 L Glucose 193 H POC Glucose 178 H Hemoglobin A1c Lactic Acid Calcium 7.7 L Ferritin Total Bilirubin AST 65 H ALT 132 H Alkaline Phosphatase Lactate Dehydrogenase 288 H C-Reactive Protein 1.40 H Total Protein 5.7 L Albumin 2.4 L Arterial Blood Glucose Arterial Blood Ionized Calcium Ur Specific [place] Coronavirus (PCR) 11/26/20 11/26/20 11/26/20 06:04 08:47 11:20 WBC 12.4 H RBC Lymph % (Auto) [place] % (Auto) Lymph # (Auto) [place] # (Auto) Baso # (Auto) Seg Neutrophils % Seg Neuts % (Manual) 98.0 H Lymphocytes % (Manual) 1.0 L Seg Neutrophils # Seg Neutrophils # Man 12.2 H Lymphocytes # (Manual) 0.1 L D-Dimer ABG pH POC ABG pCO2 75.2 H POC ABG pO2 61.9 L ABG Oxyhemoglobin 90.3 L ABG Sodium ABG Potassium ABG Chloride ABG Glucose 243 H Sodium Chloride Carbon Dioxide BUN Creatinine Glucose POC Glucose 255 H Hemoglobin A1c Lactic Acid Calcium Ferritin Total Bilirubin AST ALT Alkaline Phosphatase Lactate Dehydrogenase C-Reactive Protein Total Protein Albumin Arterial Blood Glucose 243 H Arterial Blood Ionized Calcium Ur Specific [place] Coronavirus (PCR) 11/26/20 11/26/20 11/26/20 16:20 17:15 23:41 WBC RBC Lymph % (Auto) [place] % (Auto) Lymph # (Auto) [place] # (Auto) Baso # (Auto) Seg Neutrophils % Seg Neuts % (Manual) Lymphocytes % (Manual) Seg Neutrophils # Seg Neutrophils # Man Lymphocytes # (Manual) D-Dimer ABG pH POC ABG pCO2 66.6 H POC ABG pO2 78.1 L ABG Oxyhemoglobin ABG Sodium ABG Potassium ABG Chloride ABG Glucose 244 H Sodium Chloride Carbon Dioxide BUN Creatinine Glucose POC Glucose 219 H 210 H Hemoglobin A1c Lactic Acid Calcium Ferritin Total Bilirubin AST ALT Alkaline Phosphatase Lactate Dehydrogenase C-Reactive Protein Total Protein Albumin Arterial Blood Glucose 244 H Arterial Blood Ionized Calcium Ur Specific [place] Coronavirus (PCR) 11/27/20 11/27/20 11/27/20 04:46 05:38 06:25 WBC 13.8 H RBC Lymph % (Auto) 2.0 L [place] % (Auto) Lymph # (Auto) 0.3 L [place] # (Auto) Baso # (Auto) Seg Neutrophils % Seg Neuts % (Manual) 96.0 H Lymphocytes % (Manual) Seg Neutrophils # 12.7 H Seg Neutrophils # Man 13.2 H Lymphocytes # (Manual) 0.0 L D-Dimer ABG pH POC ABG pCO2 63.0 H POC ABG pO2 53.6 L ABG Oxyhemoglobin 87.8 L ABG Sodium 115.4 L ABG Potassium ABG Chloride ABG Glucose 219 H Sodium Chloride Carbon Dioxide BUN Creatinine Glucose POC Glucose 227 H Hemoglobin A1c Lactic Acid Calcium Ferritin Total Bilirubin AST ALT Alkaline Phosphatase Lactate Dehydrogenase C-Reactive Protein Total Protein Albumin Arterial Blood Glucose 219 H Arterial Blood Ionized Calcium Ur Specific [place] Coronavirus (PCR) 11/27/20 11/27/20 11/27/20 06:25 18:05 23:29 WBC RBC Lymph % (Auto) [place] % (Auto) Lymph # (Auto) [place] # (Auto) Baso # (Auto) Seg Neutrophils % Seg Neuts % (Manual) Lymphocytes % (Manual) Seg Neutrophils # Seg Neutrophils # Man Lymphocytes # (Manual) D-Dimer ABG pH POC ABG pCO2 POC ABG pO2 ABG Oxyhemoglobin ABG Sodium ABG Potassium ABG Chloride ABG Glucose Sodium Chloride Carbon Dioxide 38 H BUN 34 H Creatinine 0.4 L Glucose 243 H POC Glucose 329 H 227 H Hemoglobin A1c Lactic Acid Calcium 7.9 L Ferritin Total Bilirubin AST 50 H ALT 110 H Alkaline Phosphatase Lactate Dehydrogenase C-Reactive Protein Total Protein 6.1 L Albumin 2.4 L Arterial Blood Glucose Arterial Blood Ionized Calcium Ur Specific [place] Coronavirus (PCR) 11/28/20 11/28/20 11/28/20 03:45 03:45 03:46 WBC 12.2 H RBC Lymph % (Auto) [place] % (Auto) Lymph # (Auto) [place] # (Auto) Baso # (Auto) Seg Neutrophils % Seg Neuts % (Manual) 93.0 H Lymphocytes % (Manual) 2.0 L Seg Neutrophils # Seg Neutrophils # Man 11.3 H Lymphocytes # (Manual) 0.2 L D-Dimer ABG pH POC ABG pCO2 68.4 H POC ABG pO2 55.4 L ABG Oxyhemoglobin ABG Sodium ABG Potassium ABG Chloride ABG Glucose 197 H Sodium Chloride Carbon Dioxide 36 H BUN 37 H Creatinine 0.4 L Glucose 194 H POC Glucose Hemoglobin A1c Lactic Acid Calcium 8.1 L Ferritin Total Bilirubin AST ALT 86 H Alkaline Phosphatase Lactate Dehydrogenase C-Reactive Protein Total Protein 6.0 L Albumin 2.3 L Arterial Blood Glucose 197 H Arterial Blood Ionized Calcium Ur Specific [place] Coronavirus (PCR)
[2020-11-28] MEDS: FAMOTIDINE 20 MG/2 ML INJ IV SCH ×2 (09:42→21:40)
[2020-11-28] MEDS: ENOXAPARIN 80 MG/0.8 ML INJ SUB-Q SCH ×2 (09:42→21:40)
[2020-11-28] MEDS ORDERED: INSULIN GLARGINE 100 UNITS/ML SUB-Q ONE (10:00)
[2020-11-28] MEDS ORDERED: LIDOCAINE (1%) 10 MG/1 ML VIAL 20 ML MDV ONE (11:03)
--- NOTE | 2020-11-28 11:07 | Progress Note ---
Assessment and Plan 59-year-old male with 1. COVID PNA 2. VDRF 3. sepsis 4. Bilateral pneumothorax CXR 11/28/2020: Right chest tube in good position without right pneumothorax. Small left pneumothorax. Subcutaneous emphysema of left neck greater than right VENT: FIO2 80%, PEEP 16, TV: 350 RR: 30 Patient stable. Repeat chest x-ray this morning shows new left pneumothorax. Likely secondary to barotrauma as patient is requiring high FiO2 and PEEP due to Covid pneumonia. Plan: 1. Vent management per ICU team 2. Continue right chest tube to -20 cm H2O suction 3. Left pneumothorax -as patient is on high PEEP on the ventilator, there is a high likelihood the pneumothorax worsening and therefore I recommend placement of left chest tube. I discussed this with the patient's next of kin Tayla Al. Risk benefits and alternatives discussed and questions answered. Consent obtained for placement of left chest tube. 4. daily CXR D/W Dr. German Thank you for this consultation. Please call with any questions or concerns. Evaluation and treatment of this patient was during the time of the national and state emergency arising from COVID19 coronavirus pandemic. Treatment and procedures performed meet the current and available best practice and guidelines for patient during the COVID pandemic. Subjective Date of service: 11/28/20 Narrative: Patient seen and examined. Has remained relatively stable overnight. Overnight RN notified me of venous oozing from the right chest tube site. Drainage from the chest tube has been serosanguineous and minimal. Objective Vital Signs - 12hr 11/27/20 11/27/20 11/27/20 23:15 23:30 23:45 Temperature Pulse Rate 62 64 65 Pulse Rate [ From Monitor] Respiratory 11 L 13 14 Rate Blood Pressure 97/64 107/63 105/66 O2 Sat by Pulse 92 93 92 Oximetry 11/27/20 11/28/20 11/28/20 23:53 00:00 00:15 Temperature 98.4 F Pulse Rate 63 63 Pulse Rate [ 66 From Monitor] Respiratory 10 L 11 L Rate Blood Pressure 102/64 108/65 O2 Sat by Pulse 93 91 Oximetry 11/28/20 11/28/20 11/28/20 00:26 00:30 00:45 Temperature Pulse Rate 66 63 63 Pulse Rate [ From Monitor] Respiratory 10 L 12 Rate Blood Pressure 108/65 100/63 108/67 O2 Sat by Pulse 92 92 92 Oximetry 11/28/20 11/28/20 11/28/20 01:00 01:15 01:30 Temperature Pulse Rate 67 66 65 Pulse Rate [ From Monitor] Respiratory 9 L 11 L 11 L Rate Blood Pressure 107/66 113/65 109/64 O2 Sat by Pulse 93 92 93 Oximetry 11/28/20 11/28/20 11/28/20 01:45 02:00 02:15 Temperature Pulse Rate 64 65 64 Pulse Rate [ From Monitor] Respiratory 16 12 11 L Rate Blood Pressure 101/62 107/65 95/61 O2 Sat by Pulse 92 90 91 Oximetry 11/28/20 11/28/20 11/28/20 02:30 02:45 03:00 Temperature Pulse Rate 65 68 67 Pulse Rate [ From Monitor] Respiratory 11 L 13 10 L Rate Blood Pressure 109/61 106/65 112/62 O2 Sat by Pulse 92 92 93 Oximetry 11/28/20 11/28/20 11/28/20 03:15 03:19 03:30 Temperature 98.4 F Pulse Rate 69 66 Pulse Rate [ From Monitor] Respiratory 13 11 L Rate Blood Pressure 103/63 113/64 O2 Sat by Pulse 93 92 Oximetry 11/28/20 11/28/20 11/28/20 03:45 04:00 04:15 Temperature Pulse Rate 66 64 67 Pulse Rate [ 66 From Monitor] Respiratory 10 L 11 L 12 Rate Blood Pressure 102/63 108/68 108/61 O2 Sat by Pulse 92 92 93 Oximetry 11/28/20 11/28/20 11/28/20 04:16 04:30 04:45 Temperature Pulse Rate 66 65 69 Pulse Rate [ From Monitor] Respiratory 14 14 Rate Blood Pressure 108/61 109/65 99/62 O2 Sat by Pulse 94 94 93 Oximetry 11/28/20 11/28/20 11/28/20 05:00 05:16 05:30 Temperature Pulse Rate 65 59 L 60 Pulse Rate [ From Monitor] Respiratory 17 14 13 Rate Blood Pressure 99/62 93/54 97/60 O2 Sat by Pulse 92 92 93 Oximetry 11/28/20 11/28/20 11/28/20 05:45 06:00 06:15 Temperature Pulse Rate 61 64 63 Pulse Rate [ From Monitor] Respiratory 21 11 L 12 Rate Blood Pressure 98/60 95/62 100/61 O2 Sat by Pulse 92 93 93 Oximetry 11/28/20 11/28/20 11/28/20 06:30 06:45 07:00 Temperature Pulse Rate 64 62 61 Pulse Rate [ From Monitor] Respiratory 10 L 11 L 12 Rate Blood Pressure 98/59 98/57 100/59 O2 Sat by Pulse 93 91 89 Oximetry 11/28/20 11/28/20 11/28/20 07:15 07:30 07:45 Temperature Pulse Rate 60 62 61 Pulse Rate [ From Monitor] Respiratory 16 12 20 Rate Blood Pressure 92/56 97/60 97/58 O2 Sat by Pulse 91 91 91 Oximetry 11/28/20 11/28/20 11/28/20 07:50 08:00 08:15 Temperature 98.1 F Pulse Rate 66 66 65 Pulse Rate [ 66 From Monitor] Respiratory 15 15 Rate Blood Pressure 97/56 98/60 97/56 O2 Sat by Pulse 95 93 93 Oximetry 11/28/20 11/28/20 11/28/20 08:30 08:45 09:00 Temperature Pulse Rate 61 61 61 Pulse Rate [ From Monitor] Respiratory 21 11 L 13 Rate Blood Pressure 99/60 98/56 94/60 O2 Sat by Pulse 91 91 92 Oximetry 11/28/20 11/28/20 11/28/20 09:15 09:30 09:45 Temperature Pulse Rate 59 L 60 68 Pulse Rate [ From Monitor] Respiratory 17 21 25 H Rate Blood Pressure 92/58 97/59 95/58 O2 Sat by Pulse 92 91 91 Oximetry 11/28/20 11/28/20 11/28/20 10:00 10:15 10:30 Temperature Pulse Rate 65 59 L 62 Pulse Rate [ From Monitor] Respiratory 23 12 22 Rate Blood Pressure 97/57 98/60 104/62 O2 Sat by Pulse 92 90 89 Oximetry - General physical appearance Narrative Exam: Gen.: Intubated, sedated. ENT: ET tube and OG tube in place. Trachea midline. There is crepitus and subcutaneous emphysema of the left neck which is worse than yesterday's exam. Subcutaneous emphysema of right neck and chest wall is greatly improved and a lmost resolved. CV: S1, S2 present Respiratory: Right chest tube with serosanguineous drainage in collection chamber. There is no leak. The dressing was removed and venous oozing seen from skin incision. A 3-0 nylon stitch was placed through the skin with adequate control of bleeding. 1 piece of Surgicel wrapped around the tube and placed against the skin along with a new occlusive dressing. Abdomen: Soft, nondistended, nontender. No rebound, rigidity, guarding Extremities: Generalized edema - Labs 11/28/20 03:45 11/28/20 03:45 Diabetes panel 11/28/20 Range/Units 03:45 Sodium 143 (137-145) mmol/L Potassium 4.3 (3.6-5.0) mmol/L Chloride 102.1 (98-107) mmol/L Carbon Dioxide 36 H (22-30) mmol/L BUN 37 H (9-20) mg/dL Creatinine 0.4 L (0.8-1.3) mg/dL Glucose 194 H (75-100) mg/dL Calcium 8.1 L (8.4-10.2) mg/dL AST 37 (5-40) units/L ALT 86 H (7-56) units/L Alkaline Phosphatase 125 (35-129) units/L Total Protein 6.0 L (6.3-8.2) g/dL Albumin 2.3 L (3.9-5) g/dL Calcium panel 11/28/20 Range/Units 03:45 Calcium 8.1 L (8.4-10.2) mg/dL Albumin 2.3 L (3.9-5) g/dL Pituitary panel 11/28/20 Range/Units 03:45 Sodium 143 (137-145) mmol/L Potassium 4.3 (3.6-5.0) mmol/L Chloride 102.1 (98-107) mmol/L Carbon Dioxide 36 H (22-30) mmol/L BUN 37 H (9-20) mg/dL Creatinine 0.4 L (0.8-1.3) mg/dL Glucose 194 H (75-100) mg/dL Calcium 8.1 L (8.4-10.2) mg/dL Adrenal panel 11/28/20 Range/Units 03:45 Sodium 143 (137-145) mmol/L Potassium 4.3 (3.6-5.0) mmol/L Chloride 102.1 (98-107) mmol/L Carbon Dioxide 36 H (22-30) mmol/L BUN 37 H (9-20) mg/dL Creatinine 0.4 L (0.8-1.3) mg/dL Glucose 194 H (75-100) mg/dL Calcium 8.1 L (8.4-10.2) mg/dL Total Bilirubin 0.60 (0.1-1.2) mg/dL AST 37 (5-40) units/L ALT 86 H (7-56) units/L Alkaline Phosphatase 125 (35-129) units/L Total Protein 6.0 L (6.3-8.2) g/dL Albumin 2.3 L (3.9-5) g/dL
--- NOTE | 2020-11-28 12:10 | Procedure Note ---
Date of procedure: 11/28/20 Pre-op diagnosis: Left PTX Post-op diagnosis: same Procedure: Placement Left Chest tube Findings: HPI and indication: 59-year-old male with ventilator dependent respiratory failure secondary to Covid pneumonia with new left-sided pneumothorax on chest x-ray today. Recommendation was for placement of left-sided chest tube. Consent obtained from patient next of kin. Procedure: Patient supine in hospital bed with left arm abducted. Patient already on sedation.The left lateral chest wall was prepped with betadine. Time out performed. Area draped in sterile fashion. The 4th intercostal space in the midaxillary line was palpated and marked. The skin was anesthetized with local anesthetic. A 2 cm incision was made in the skin using a 11 blade and dissection carried out in the subcutaneous tissue using hemostat. The 4th intercostal space was identified and local anesthetic infiltrated into the pleura and pleural space. Further blunt dissection was carried out over the rib using zoran clamp until the pleural space was entered. There was a pop felt once the zoran went through the pleura along with a ramirez of air. A 28 thai chest tube was inserted into the space and directed superiorly and posteriorly. This was advanced to 16 cm at the skin without resistance. The tube was connected to pleurevac. There was no air leak. Scant serosanguenous drainage in tubing. The chest tube was secured to the skin using a 0 silk U stitch. The skin adjacent to the chest tube was approximated using 0 silk interrupted stitch. There was no bleeding from the skin. An occlusive dressing was applied. The chest tube was secured in the usual fashion. The pleurevac was set to [id number] suction. The patient tolerated the procedure well. All sharps were disposed of appropriately. Sterile technique and COVID contact precaution measures were maintained throughout the procedure. RN present for procedure. A follow up chest xray is pending Implants: 28F chest tube Anesthesia: local Surgeon: VIOLETA YANEZ Estimated blood loss: minimal Pathology: none Condition: stable Disposition: no change
--- NOTE | 2020-11-28 12:42 | Progress Note ---
Assessment and Plan Assessment and plan: 59-year-old female presents with shortness of breath cough fever weakness. "1 to 2 days. Patient has severe hypoxia per EMS. Her saturations are in the low 80s. With all oxygen and nonrebreather came down to low 90s. Patient denies any past medical history. Exposure to coronavirus present. Does not have a primary care physician. 2/1: Patient continues on BiPAP throughout the night. Labs are remarkable for hypoxia with improving renal function but lactic acidosis without fever. CTA has been ordered to rule out pulmonary embolism. I agree with increasing enoxaparin to twice daily full dose for empiric treatment of pulmonary embolism. Will obtain ID consultation on further evaluation for possible underlying pneumonia versus COVID-19. We will also obtain echocardiogram for evaluation. Will discontinue fluids at this time. 2/2; Continue supportive care, Patient remains with very guarded prognosis, remains on BiPAP, continues on Remdesivir, and steroids. Will continue antico agulation, unable to get CTA Chest due to patients unstable clinical status. Will adjust insulin for better blood glucose 2/3: Continues on BIPAP, no clear improvement at this time. Will continue richelle roids therapy Remdesivir and also Full anticoagulation at this time. Will update family. Discussed with Sap Basis Administrator. 2/4: Taking a break from the BiPAP on high flow and nonrebreather 100% with saturation of 90% becomes hypoxic with any movement. Sap Basis Administrator input noted will get a dose of Lasix today. Will await a discussion with ID for possibly increasing steroid. I updated Patient's Cousin, Tayla Esquivel who is the emergency personal secretary. Blood sugar remains fluctuating secondary to steriods, Encouraged Prone positioning. Noted with mild hyponatremia we will continue to monitor and manage 2/5: Continue supportive care wean oxygen as tolerated prognosis remains guarded. Encouraged to progress as tolerated. Awaiting labs today. Discussed with nursing staff and patient at bedside. 2/6: Discontinued Dexamethasone as Solumedrol started secondary to increased oxygen demand. Will give additional insulin for better control. Continue oxygen support patient still on high flow. Prognosis still guarded 2/7: Patient was intubated and placed on mechanical ventilation. Continue current medication. Will check a.m. labs today. Noted still with hypotension. Doubt septic shock at this time as patient has no new fever. Will adjust insulin for better blood sugar control. 11/23: Patient admitted with COVID-19 despite all efforts patient remains severely hypoxic and now is intubated. Sap Basis Administrator input noted. Blood pressure marginal at this time. Very poor prognosis. Continue Solu-Medrol. 11/24. Patient remains very hypoxic. Blood pressure borderline. Plan for initiation of paralytic agents as per importer or exporter. Patient may need to be transferred if no improvement. 11/26. Off paralytics. Remains intubated. On steroids. Prognosis is poor. 11/27. Chest xray shows pneumomediastinum and subcutaneous emphysema. Surgery consulted. Plan for chest tube placement. Sputum culture grew MRSA. Patient started on vancomycin per ID. 11/28. Right chest tube placed yesterday by surgery. Repeat chest x-ray showed left small pneumothorax. Plan for chest tube placement on the left today. Remains on paralytic agents. Problems --Acute respiratory failure with hypoxia 11/17 COVID 19 pneumonia Patient remains fully dependent on mechanical ventilatory support Sap Basis Administrator on board On solumedrol 60 q 6 ID on board Prognosis is poor --Pneumomediastinum, subcutaneous emphysema, small left-sided pneumothorax Right chest tube placed by surgery yesterday Plan for left chest tube placement --Diabetes Mellitus Continue Insulin Monitor blood glucose closely --- Covid pneumonia Management as above ---MRSA pneumonia Started on vancomycin x7 days ID on board The high probability of a clinically significant, sudden or life threatening deterioration of the [pulmonary] system(s) required my full and direct attention, intervention and personal management. The aggregate critical care time was [35] minutes. This time is in addition to time spent performing reported procedures but includes the following: [X] Data Review and interpretation [X] Patient assessment and monitoring of vital signs [X] Documentation [X] Medication orders and management History Interval history: Remains fully dependent on ventilator Right chest tube placed by surgery Smal PTX on the left on chest xray. Hospitalist Physical - Constitutional Vitals: Temp Pulse Resp BP Pulse Ox 98.1 F 62 22 104/62 89 11/28/20 08:00 11/28/20 10:30 11/28/20 10:30 11/28/20 10:30 11/28/20 10:30 General appearance: Present: mild distress, well-nourished HEART Score - HEART Score Troponin: Troponin T < 0.010 ng/mL (0.00-0.029) 11/22/20 Unknown Results - Labs CBC & Chem 7: 11/28/20 03:45 11/28/20 03:45 Labs: Laboratory Last Values WBC 12.2 K/mm3 (4.5-11.0) H 11/28/20 03:45 RBC 4.32 M/mm3 (3.65-5.03) 11/28/20 03:45 Hgb 12.7 gm/dl (11.8-15.2) 11/28/20 03:45 Hct 38.4 % (35.5-45.6) 11/28/20 03:45 MCV 89 fl (84-94) 11/28/20 03:45 MCH 30 pg (28-32) 11/28/20 03:45 MCHC 33 % (32-34) 11/28/20 03:45 RDW 13.7 % (13.2-15.2) 11/28/20 03:45 Plt Count 211 K/mm3 (140-440) 11/28/20 03:45 Lymph % (Auto) 2.0 % (13.4-35.0) L 11/27/20 06:25 [place] % (Auto) 5.2 % (0.0-7.3) 11/27/20 06:25 Eos % (Auto) 0.0 % (0.0-4.3) 11/27/20 06:25 Baso % (Auto) 0.1 % (0.0-1.8) 11/27/20 06:25 Lymph # (Auto) 0.3 K/mm3 (1.2-5.4) L 11/27/20 06:25 [place] # (Auto) 0.7 K/mm3 (0.0-0.8) 11/27/20 06:25 Eos # (Auto) 0.0 K/mm3 (0.0-0.4) 11/27/20 06:25 Baso # (Auto) 0.0 K/mm3 (0.0-0.1) 11/27/20 06:25 Add Manual Diff Complete 11/28/20 03:45 Total Counted 100 11/28/20 03:45 Seg Neutrophils % Commissioned Police Officer 11/28/20 03:45 Seg Neuts % (Manual) 93.0 % (40.0-70.0) H 11/28/20 03:45 Lymphocytes % (Manual) 2.0 % (13.4-35.0) L 11/28/20 03:45 Monocytes % (Manual) 5.0 % (0.0-7.3) 11/28/20 03:45 Nucleated RBC % Not Reportable 11/28/20 03:45 Seg Neutrophils # 12.7 K/mm3 (1.8-7.7) H 11/27/20 06:25 Seg Neutrophils # Man 11.3 K/mm3 (1.8-7.7) H 11/28/20 03:45 Band Neutrophils # 0.0 K/mm3 11/28/20 03:45 Lymphocytes # (Manual) 0.2 K/mm3 (1.2-5.4) L 11/28/20 03:45 Abs React Lymphs (Man) 0.0 K/mm3 11/28/20 03:45 Monocytes # (Manual) 0.6 K/mm3 (0.0-0.8) 11/28/20 03:45 Eosinophils # (Manual) 0.0 K/mm3 (0.0-0.4) 11/28/20 03:45 Basophils # (Manual) 0.0 K/mm3 (0.0-0.1) 11/28/20 03:45 Metamyelocytes # 0.0 K/mm3 11/28/20 03:45 Myelocytes # 0.0 K/mm3 11/28/20 03:45 Promyelocytes # 0.0 K/mm3 11/28/20 03:45 Blast Cells # 0.0 K/mm3 11/28/20 03:45 WBC Morphology Not Reportable 11/28/20 03:45 Hypersegmented Neuts Not Reportable 11/28/20 03:45 Hyposegmented Neuts Not Reportable 11/28/20 03:45 Hypogranular Neuts Not Reportable 11/28/20 03:45 Smudge Cells Not Reportable 11/28/20 03:45 Toxic Granulation Not Reportable 11/28/20 03:45 Toxic Vacuolation Not Reportable 11/28/20 03:45 Dohle Bodies Not Reportable 11/28/20 03:45 Pelger-Huet Anomaly Not Reportable 11/28/20 03:45 Tony Rods Not Reportable 11/28/20 03:45 Platelet Estimate Consistent w auto 11/28/20 03:45 Clumped Platelets Not Reportable 11/28/20 03:45 Plt Clumps, EDTA Not Reportable 11/28/20 03:45 Large Platelets Not Reportable 11/28/20 03:45 Giant Platelets Not Reportable 11/28/20 03:45 Platelet Satelliting Not Reportable 11/28/20 03:45 Plt Morphology Comment Not Reportable 11/28/20 03:45 RBC Morphology Not Reportable 11/28/20 03:45 Dimorphic RBCs Not Reportable 11/28/20 03:45 Polychromasia Not Reportable 11/28/20 03:45 Hypochromasia Not Reportable 11/28/20 03:45 Poikilocytosis Not Reportable 11/28/20 03:45 Anisocytosis Not Reportable 11/28/20 03:45 Microcytosis Not Reportable 11/28/20 03:45 Macrocytosis Not Reportable 11/28/20 03:45 Spherocytes Not Reportable 11/28/20 03:45 Pappenheimer Bodies Not Reportable 11/28/20 03:45 Sickle Cells Not Reportable 11/28/20 03:45 Target Cells Not Reportable 11/28/20 03:45 Tear Drop Cells Not Reportable 11/28/20 03:45 Ovalocytes Not Reportable 11/28/20 03:45 Helmet Cells Not Reportable 11/28/20 03:45 [place] Bodies Not Reportable 11/28/20 03:45 [place] Rings Not Reportable 11/28/20 03:45 [place] Cells Not Reportable 11/28/20 03:45 Bite Cells Not Reportable 11/28/20 03:45 Crenated Cell Not Reportable 11/28/20 03:45 Elliptocytes Not Reportable 11/28/20 03:45 Acanthocytes (Spur) Not Reportable 11/28/20 03:45 Rouleaux Not Reportable 11/28/20 03:45 Hemoglobin C Crystals Not Reportable 11/28/20 03:45 Schistocytes Not Reportable 11/28/20 03:45 Malaria parasites Not Reportable 11/28/20 03:45 Yovani Bodies Not Reportable 11/28/20 03:45 Hem Pathologist Commnt No 11/28/20 03:45 D-Dimer 926.11 ng/mlDDU (0-234) H 11/26/20 06:04 ABG pH 7.374 (7.320-7.450) 11/28/20 03:46 POC ABG pCO2 68.4 mmHg (32.0-48.0) H 11/28/20 03:46 POC ABG pO2 55.4 mmHg (83-108) L 11/28/20 03:46 POC ABG HCO3 39 11/28/20 03:46 POC ABG Base Excess 10.9 11/28/20 03:46 ABG Hemoglobin 13.7 (12.0-17.5) 11/28/20 03:46 ABG Oxyhemoglobin 87.8 (94-98) L 11/27/20 04:46 ABG Methemoglobin 0.3 (0.0-1.5) 11/27/20 04:46 ABG Sodium 137.1 mmol/L (136.0-145.0) 11/28/20 03:46 ABG Potassium 4.4 mmol/L (3.40-4.50) 11/28/20 03:46 ABG Chloride 101.0 mmol/L (98-107) 11/28/20 03:46 ABG Glucose 197 mg/dL (65-95) H 11/28/20 03:46 Carboxyhemoglobin 1.4 (0.5-1.5) 11/27/20 04:46 FiO2 80 11/28/20 03:46 Sodium 143 mmol/L (137-145) 11/28/20 03:45 Potassium 4.3 mmol/L (3.6-5.0) 11/28/20 03:45 Chloride 102.1 mmol/L (98-107) 11/28/20 03:45 Carbon Dioxide 36 mmol/L (22-30) H 11/28/20 03:45 Anion Gap 9 mmol/L 11/28/20 03:45 BUN 37 mg/dL (9-20) H 11/28/20 03:45 Creatinine 0.4 mg/dL (0.8-1.3) L 11/28/20 03:45 Estimated GFR > 60 ml/min 11/28/20 03:45 BUN/Creatinine Ratio 93 % 11/28/20 03:45 Glucose 194 mg/dL (75-100) H 11/28/20 03:45 POC Glucose 126 mg/dL (70-105) H 11/28/20 12:21 Hemoglobin A1c 11.7 % (4-6) H 11/16/20 05:29 Lactic Acid 2.60 mmol/L (0.7-2.0) H* 11/16/20 05:29 Calcium 8.1 mg/dL (8.4-10.2) L 11/28/20 03:45 Ferritin 778.8 ng/mL (30.0-300.0) H 11/26/20 04:00 Total Bilirubin 0.60 mg/dL (0.1-1.2) 11/28/20 03:45 AST 37 units/L (5-40) 11/28/20 03:45 ALT 86 units/L (7-56) H 11/28/20 03:45 Alkaline Phosphatase 125 units/L (35-129) 11/28/20 03:45 Lactate Dehydrogenase 288 units/L (91-180) H 11/26/20 04:00 Troponin T < 0.010 ng/mL (0.00-0.029) 11/22/20 Unknown C-Reactive Protein 1.40 mg/dL (0.00-1.30) H 11/26/20 04:00 NT-Pro-B Natriuret Pep 107.2 pg/mL (0-900) 11/17/20 10:21 Total Protein 6.0 g/dL (6.3-8.2) L 11/28/20 03:45 Albumin 2.3 g/dL (3.9-5) L 11/28/20 03:45 Albumin/Globulin Ratio 0.6 % 11/28/20 03:45 Procalcitonin 0.51 ng/mL (<0.15) 11/15/20 10:39 Arterial Blood Glucose 197 mg/dL (65-95) H 11/28/20 03:46 Arterial Blood Ionized Calcium 4.6 mg/dL (4.6-5.3) 11/28/20 03:46 Urine Color [place] (Yellow) 11/16/20 01:45 Urine Turbidity Slightly-cloudy (Clear) 11/16/20 01:45 Urine pH 6.0 (5.0-7.0) 11/16/20 01:45 Ur Specific [place] 1.037 (1.003-1.030) H 11/16/20 01:45 Urine Protein 30 mg/dl mg/dL (Negative) 11/16/20 01:45 Urine Glucose (UA) >=500 mg/dL (Negative) 11/16/20 01:45 Urine Ketones 20 mg/dL (Negative) 11/16/20 01:45 Urine Blood Neg (Negative) 11/16/20 01:45 Urine Nitrite Neg (Negative) 11/16/20 01:45 Urine Bilirubin Neg (Negative) 11/16/20 01:45 Urine Urobilinogen 2.0 mg/dL (<2.0) 11/16/20 01:45 Ur Leukocyte Esterase Neg (Negative) 11/16/20 01:45 Urine WBC (Auto) 2.0 /HPF (0.0-6.0) 11/16/20 01:45 Urine RBC (Auto) 1.0 /HPF (0.0-6.0) 11/16/20 01:45 Urine Bacteria (Auto) 1+ /HPF (Negative) 11/16/20 01:45 Urine Mucus 3+ /HPF 11/16/20 01:45 Coronavirus (PCR) Positive (Negative) A 11/16/20 Unknown Microbiology: Microbiology 11/21/20 23:49 Tracheal Aspirate Sputum Culture - Preliminary Methicillin Resist S. Aureus - Diagnostic Impressions Diagnostic Impressions: Echocardiogram 11/16/20 10:34 Transthoracic Echocardiogram Indication: Shortness of breath-COVID BP: 108/77 HR: 92 Conclusions *Global left ventricular systolic function is normal. *The estimated ejection fraction is 60-65%. *Mild to moderate concentric left ventricular hypertrophy is observed. *There is trace of mitral regurgitation. *There is mild to moderate tricuspid regurgitation. *There is evidence of mild pulmonary hypertension. *The right ventricular systolic pressure is calculated at 31 mmHg. Findings Left Ventricle: The left ventricular chamber size is normal. Mild to moderate concentric left ventricular hypertrophy is observed. Global left ventricular systolic function is normal. The estimated ejection fraction is 60-65%. Left Atrium: The left atrial chamber size is normal. Right Ventricle: The right ventricular cavity size is normal. The right ventricular global systolic function is normal. Right Atrium: The right atrial cavity size is normal. Aortic Valve: The aortic valve is trileaflet. There is no evidence of aortic regurgitation. There is no evidence of aortic stenosis. Mitral Valve: The mitral valve leaflets appear normal. There is trace of mitral regurgitation. There is no evidence of mitral stenosis. Tricuspid Valve: The tricuspid valve leaflets are normal. There is mild to moderate tricuspid regurgitation. The right ventricular systolic pressure is calculated at 31 mmHg. There is evidence of mild pulmonary hypertension. Pulmonic Valve: There is trace pulmonic regurgitation. Pericardium: There is no pericardial effusion. Aorta: There is no dilatation of the ascending aorta. There is no dilatation of the aortic root. Venous: The inferior vena cava appears normal in size. Measurements Chambers 2D Name Value Normal Range IVSd (2D) 0.81 cm (0.6 - 1.1) LVPWd (2D) 0.79 cm (0.6 - 1.1) LVIDd (2D) 4.22 cm (3.7 - 5.6) LVIDs (2D) 3.1 cm (2 - 3.8) LV FS (2D) 26.71 % - EF Teichholz (2D) 52.55 % - Ao root diameter (2D) 3.34 cm (2 - 3.7) Volumes/Mass Name Value Normal Range LA ESV SP 4CH (A/L) 10.87 ml - LA ESV SP 2CH (A/L) 18.74 ml - LA ESV BP (A/L) 16.38 ml - LA ESV BP (A/L) index 8.62 ml/m2 - LA ESV SP 4CH (MOD) 10.32 ml - LA ESV SP 2CH (MOD) 17.66 ml - LA ESV BP (MOD) 15.12 ml - LA ESV BP (MOD) index 7.96 ml/m2 - Diastolic/Systolic Function Name Value Normal Range MV E-wave Vmax 0.76 m/sec - MV deceleration time 133.63 msec - MV A-wave Vmax 1.1 m/sec - MV E:A ratio 0.69 ratio - Aortic Valve Name Value Normal Range AV Vmax 1.44 m/sec - AV VTI 22.94 cm - AV peak gradient 8.33 mmHg - AV mean gradient 4.73 mmHg - LVOT diameter 2.2 cm - LVOT Vmax 1.04 m/sec - LVOT VTI 18.88 cm - LVOT peak gradient 4.34 mmHg - LVOT mean gradient 2.31 mmHg - SV LVOT 72.05 ml - EVANGELISTA (continuity Vmax) 2.75 cm2 - EVANGELISTA (continuity VTI) 3.14 cm2 - Tricuspid Valve Name Value Normal Range TR Vmax 2.64 m/sec - TR peak gradient 28 mmHg - RAP 3 mmHg - RVSP 31 mmHg - Gupta/IV: Voiding Method Indwelling Catheter IV Catheter Type [Left Peripheral IV Antecubital] Active Medications - Current Medications Current Medications: Generic Name Dose Route Start Last Admin Trade Name Freq PRN Reason Stop Dose Admin Acetaminophen 650 mg 11/15/20 23:55 11/18/20 22:19 Acetaminophen 325 Mg Tab PO 650 mg Q4H PRN Administration Pain MILD(1-3)/Fever >100.5/BUTTS Lipase/Protease/Amylase 1 each 11/23/20 11:53 Lipase 10,500/Protease 25,000/Amylase 43,750 (Units) Dr Cap FEEDTUBE PRN PRN For Clogged Feeding Tube Enoxaparin Sodium 80 mg 11/16/20 10:00 11/28/20 09:42 Enoxaparin 80 Mg/0.8 Ml Inj SUB-Q 80 mg Q12HR RAEANN Administration Famotidine 20 mg 11/22/20 22:00 11/28/20 09:42 Famotidine 20 Mg/2 Ml Inj IV 20 mg BID RAEANN Administration Fentanyl 50 mcg 11/21/20 21:53 Fentanyl 100 Mcg/2 Ml Inj IV Q10MIN PRN ANALGESIA Hydrophilic Ointment 1 applic 11/21/20 21:53 Lip Therapy Vaseline TP Q2HR PRN Dry Lips Fentanyl Citrate 2,000 mcg in 100 mls @ 3.625 mls/hr 11/21/20 22:00 11/28/20 11:48 Fentanyl Drip Premix IV 4 mcg/kg/hr TITR RAEANN 14.5 mls/hr Administration Protocol 1 MCG/KG/HR Midazolam HCl 100 mg/ Sodium 100 mls @ 2 mls/hr 11/21/20 22:00 11/28/20 03:37 Chloride IV 5 mg/hr TITR RAEANN 5 mls/hr Administration Protocol 2 MG/HR Norepinephrine 4 mg in 250 mls @ 7.5 mls/hr 11/22/20 17:00 Levophed Drip 4 Mg/Ns 250 Ml IV TITR RAEANN Protocol 2 MCG/MIN Propofol 1,000 mg in 100 mls @ 2.175 mls/hr 11/27/20 12:00 11/28/20 05:56 Diprivan 10 Mg/Ml IV 20 mcg/kg/min TITR RAEANN 8.7 mls/hr Administration Protocol 5 MCG/KG/MIN Vancomycin HCl 1 gm in 250 mls @ 166.667 mls/hr 11/27/20 04:00 11/28/20 03:38 Vancomycin/Ns 1 Gm/250 Ml IV 166.667 mls/hr Q12H RAEANN Administration Insulin Glargine 40 units 11/27/20 22:00 11/27/20 21:31 Insulin Glargine 100 Units/Ml SUB-Q 40 units QHS [facility] Administration Insulin Human Lispro 0 unit 11/22/20 06:00 11/28/20 12:31 Insulin Lispro 100 Unit/Ml SUB-Q Not Given Q6HR [facility] Protocol Methylprednisolone Sodium Succinate 60 mg 11/20/20 12:00 11/28/20 12:32 Methylprednisolone Sod Succinate 125 Mg/2 Ml Inj IV 60 mg Q6HR RAEANN Administration Metoclopramide HCl 10 mg 11/15/20 23:55 Metoclopramide 10 Mg/2 Ml Inj IV Q6H PRN Nausea And Vomiting Midazolam HCl 2 mg 11/21/20 21:53 Midazolam 2 Mg/2 Ml Inj IV Q10MIN PRN Sedation Multi-Ingred Cream/Lotion/Oil/Oint 1 applic 11/21/20 21:53 Mineral Oil/Petrolatum, White Ophth Oint 3.5 Gm OU Q4HR PRN Dry Eye(s) Multi-Ingred Cream/Lotion/Oil/Oint 1 applic 11/27/20 18:00 11/28/20 12:31 Mineral Oil/Petrolatum, White Ophth Oint 3.5 Gm OU 1 applic Q6H RAEANN Administration Ondansetron HCl 4 mg 11/15/20 23:55 Ondansetron 4 Mg/2 Ml Inj IV Q8H PRN Nausea And Vomiting Simple Syrup 15 ml 11/23/20 11:53 Simple Syrup 15 Ml FEEDTUBE PRN PRN Hypoglycemia Simple Syrup 30 ml 11/23/20 11:53 Simple Syrup 15 Ml FEEDTUBE PRN PRN Hypoglycemia Sodium Bicarbonate 325 mg 11/23/20 11:53 Sodium Bicarbonate 325 Mg Tab FEEDTUBE PRN PRN For Clogged Feeding Tube Sodium Chloride 10 ml 11/16/20 10:00 11/28/20 09:43 Sodium Chloride 0.9% 10 Ml Flush Syringe IV 10 ml BID RAEANN Administration Sodium Chloride 10 ml 11/15/20 23:55 Sodium Chloride 0.9% 10 Ml Flush Syringe IV PRN PRN LINE FLUSH Nutrition/Malnutrition Assess - Dietary Evaluation Nutrition/Malnutrition Findings: Nutrition Notes Start: 11/20/20 12:03 Freq: Status: Active Protocol: Document 11/26/20 10:59 KIT (Rec: 11/26/20 11:25 KIT [id number]) Co-Sign 11/26/20 10:59 NHALL Nutrition Notes Initial or Follow up Reassessment Current Diagnosis Diabetes,Sepsis,Respiratory Failure Other Pertinent Diagnosis Bilat pneu, COVID-19 (+) Current Diet Glucerna 1.2 at 100 ml/hr when not proned, 20 ml when proned Labs/Tests BUN 51 Cr 3.4 BG 189 Pertinent Medications Levophed Height 5 ft 6 in Weight 72.5 kg Usual Body Weight 80.5 kg [place] Body Weight (kg) 64.54 BMI 25.7 Weight Status Overweight Subjective/Other Information F/u TF tolerance. Pt coded blue this AM and TF on hold for now. Percent of energy/protein needs met: 0%/0% Burn Absent Trauma Absent GI Symptoms None Difficulty In Swallowing,Chewing Current % PO Negligible Minimum of two criteria Yes Energy Intake (severe) < or equal to 50% Estimated Energy Requirement > or equal to 5 days Interpretation of Weight Loss (severe) >2% in 1 week #3 Nutrition Diagnosis Inadequate oral intake Diagnosis Progress(for reassessment Continues documentation) #2 Nutrition Diagnosis Malnutrition Diagnosis Progress(for reassessment Continues documentation) #1 Nutrition Diagnosis Unintended weight loss Diagnosis Progress(for reassessment Continues documentation) Is patient on ventilator? Yes Is Patient Ambulatory and/or Out of Bed No REE-([facility]-confined to bed) 7520.004 Calculation Used for Recommendations [facility] Additional Notes Protein needs 1.2-2g/k-145g/day Fluid 1ml/kcal or per MD Nutrition Intervention Change Diet Order: Continue TF if medically able Nutrition Support: Supine (12h): Glucerna 1.2 at 100ml/hr with flush of 100 ml q4h. Prone (12h): Glucerna 1.2 at 20 ml/hr with flush of 50 ml q4h. Kcal 1,728 Protein (gm) 86 Fluid (mL) 1,159 Goal #1 TF tolerance Goal #2 Meet at least 75% of energy and protein needs via TF Anticipated Discharge Needs: Unknown at this time Follow-Up By: 12/01/20 Additional Comments F/u TF re-start, vent status, and proning regimen
--- NOTE | 2020-11-28 12:50 | XRay Report ---
CHEST 1 VIEW 11/28/2020 11:39 AM INDICATION / CLINICAL INFORMATION: left chest tube. COMPARISON: One view of the chest from earlier today. FINDINGS: SUPPORT DEVICES: A left chest tube has been placed that terminates over the left upper lobe. The righ t chest tube has been slightly advanced with the tip projecting over the right upper lobe. No other s ignificant changes. HEART / MEDIASTINUM: Stable. LUNGS / PLEURA: Similar bilateral pulmonary opacities. No significant pleural effusion. Unchanged sma ll left apical pneumothorax. ADDITIONAL FINDINGS: Similar subcutaneous gas along the neck/right chest. IMPRESSION: 1. Interval left chest tube placement with an unchanged small left apical pneumothorax. 2. No other significant interval changes. Signer Name: Octavio Garland MD Signed: 11/28/2020 12:46 PM Workstation Name: [id number]
--- NOTE | 2020-11-28 16:13 | Progress Note ---
Assessment and Plan Cultures: SARS CoV-2 PCR: positive Blood culture: No growth 11/21/2020 tracheal aspirate culture: MRSA A/P: 59-year-old male: #Bilateral pneumonia: secondary to COVID-19. Admission labs showed leukocytosis, D-dimer greater than 10,000, ferritin 672, CRP 19.8, LDH 663, creatinine 0.6, procalcitonin 0.51. Completed 5 days of abx, remdesivir. #MRSA on ET aspirate culture, ?colonization v/s true disease, difficult to differentiate. #Right-sided pneumothorax and pneumomediastinum: Underwent placement of right- sided chest tube #Acute hypoxic respiratory failure: Failed BiPAP. Remains on the vent. #Elevated d-dimer: DVT scan negative. Unable to get CTA Chest due to patients unstable clinical status #Transaminitis: secondary to COVID-19. Recs: -MRSA on ET aspirate culture, ?colonization v/s true disease, difficult to diff erentiate, remains critically ill,IV Vancomycin x 7 days -continue steroids per ICU team -Continue prophylactic anticoagulation based on d-dimer per hospital protocol -trend ferritin, LDH, d-dimer, CRP every 2-3 days for risk stratification and to assess disease progression -guarded prognosis Rm Carrillo MD [facility] ([facility] O: [phone] F: [phone] Subjective Date of service: 11/28/20 Principal diagnosis: COVID-19 Interval history: Afebrile, white count slightly elevated at 12.2. Remains on the vent. Imaging personally reviewed: Chest x-ray: Interval placement of left chest tube, no other acute change. Objective - Exam Narrative Exam: Physical exam deferred due to PPE conservation strategy. Please refer to primary team's note. - Constitutional Vitals: Vital Signs Temp Pulse Resp BP Pulse Ox 98.3 F 66 16 97/59 92 11/28/20 12:00 11/28/20 13:15 11/28/20 13:15 11/28/20 13:15 11/28/20 13:15 Temperature -Last 24 Hours Temperature 98.3 F Temperature 98.3 F Temperature 98.1 F Temperature 98.4 F Temperature 98.4 F Temperature 98.1 F - Labs CBC & Chem 7: 11/28/20 03:45 11/28/20 03:45 Labs: Abnormal lab results 11/27/20 11/27/20 11/28/20 Range/Units 18:05 23:29 03:45 WBC 12.2 H (4.5-11.0) K/mm3 Seg Neuts % (Manual) 93.0 H (40.0-70.0) % Lymphocytes % (Manual) 2.0 L (13.4-35.0) % Seg Neutrophils # Man 11.3 H (1.8-7.7) K/mm3 Lymphocytes # (Manual) 0.2 L (1.2-5.4) K/mm3 POC ABG pCO2 (32.0-48.0) mmHg POC ABG pO2 (83-108) mmHg ABG Glucose (65-95) mg/dL Carbon Dioxide (22-30) mmol/L BUN (9-20) mg/dL Creatinine (0.8-1.3) mg/dL Glucose (75-100) mg/dL POC Glucose 329 H 227 H (70-105) mg/dL Calcium (8.4-10.2) mg/dL ALT (7-56) units/L Total Protein (6.3-8.2) g/dL Albumin (3.9-5) g/dL Arterial Blood Glucose (65-95) mg/dL 11/28/20 11/28/20 11/28/20 Range/Units 03:45 03:46 05:24 WBC (4.5-11.0) K/mm3 Seg Neuts % (Manual) (40.0-70.0) % Lymphocytes % (Manual) (13.4-35.0) % Seg Neutrophils # Man (1.8-7.7) K/mm3 Lymphocytes # (Manual) (1.2-5.4) K/mm3 POC ABG pCO2 68.4 H (32.0-48.0) mmHg POC ABG pO2 55.4 L (83-108) mmHg ABG Glucose 197 H (65-95) mg/dL Carbon Dioxide 36 H (22-30) mmol/L BUN 37 H (9-20) mg/dL Creatinine 0.4 L (0.8-1.3) mg/dL Glucose 194 H (75-100) mg/dL POC Glucose 173 H (70-105) mg/dL Calcium 8.1 L (8.4-10.2) mg/dL ALT 86 H (7-56) units/L Total Protein 6.0 L (6.3-8.2) g/dL Albumin 2.3 L (3.9-5) g/dL Arterial Blood Glucose 197 H (65-95) mg/dL 11/28/20 Range/Units 12:21 WBC (4.5-11.0) K/mm3 Seg Neuts % (Manual) (40.0-70.0) % Lymphocytes % (Manual) (13.4-35.0) % Seg Neutrophils # Man (1.8-7.7) K/mm3 Lymphocytes # (Manual) (1.2-5.4) K/mm3 POC ABG pCO2 (32.0-48.0) mmHg POC ABG pO2 (83-108) mmHg ABG Glucose (65-95) mg/dL Carbon Dioxide (22-30) mmol/L BUN (9-20) mg/dL Creatinine (0.8-1.3) mg/dL Glucose (75-100) mg/dL POC Glucose 126 H (70-105) mg/dL Calcium (8.4-10.2) mg/dL ALT (7-56) units/L Total Protein (6.3-8.2) g/dL Albumin (3.9-5) g/dL Arterial Blood Glucose (65-95) mg/dL
[2020-11-28] MEDS: INSULIN GLARGINE 100 UNITS/ML SUB-Q SCH (21:44)
[2020-11-29] MEDS: fentaNYL DRIP Premix 2,000 MCG/100 ML BAG IV SCH ×4 (00:06→18:21)
[2020-11-29] MEDS: methylPREDNISolone Sod Succinate 125 MG/2 ML INJ IV SCH ×5 (00:07→23:59)
[2020-11-29] MEDS: MINERAL OIL/PETROLATUM, WHITE OPHTH OINT 3.5 GM OU SCH ×2 (01:19→05:11)
[2020-11-29] MEDS: MIDAZOLAM 100 MG in SODIUM CHLORIDE 0.9% 80 ML IV SCH ×2 (01:19→18:20)
[2020-11-29] MEDS: VANCOMYCIN/NS 1 GM/250 ML 1 GM/250 ML BAG IV SCH (05:11)
[2020-11-29] MEDS: INSULIN LISPRO 100 UNIT/ML SUB-Q SCH ×4 (05:38→23:59)
[2020-11-29] MEDS: ENOXAPARIN 80 MG/0.8 ML INJ SUB-Q SCH ×2 (09:38→21:32)
[2020-11-29] MEDS: FAMOTIDINE 20 MG/2 ML INJ IV SCH ×2 (09:38→21:35)
--- NOTE | 2020-11-29 10:50 | XRay Report ---
CHEST 1 VIEW 11/29/2020 10:23 AM INDICATION / CLINICAL INFORMATION: b/l chest tube, vent. COMPARISON: 11/28/2020 FINDINGS: SUPPORT DEVICES: Stable, satisfactory device positioning. HEART / MEDIASTINUM: Stable. LUNGS / PLEURA: Diffuse pulmonary airspace disease, unchanged when compared to yesterday's radiograph . Tiny apical pneumothoraces, unchanged. ADDITIONAL FINDINGS: Mild right and moderate left subcutaneous emphysema. IMPRESSION: 1. No significant change when compared to yesterday's radiograph. Signer Name: Eduardo Anderson MD Signed: 11/29/2020 10:45 AM Workstation Name: [id number]
--- NOTE | 2020-11-29 11:20 | Progress Note ---
Assessment and Plan 59 y/o male with acute respiratory failure, abnormal CXR and abnormal lab studies. 11/29/20: Second chest tube in on yesterday. CXR is stable. ABG unchanged. Will likely increase PEEP now that chest tubes are in. No further paralytics. Still making good urine. Prognosis remains guarded. Will check chemistry to assess Potassium levels given peaked t's seen on monitor. 11/28/20: Second chest tube today. Once chest tube in, will likely increase PEEP to 18 and repeat gas about 2 hours after this. Continue paralytic today. No proning now that patient will have bilateral chest tubes. VEry guarded prognosis. 11/27/20: Spoke with surgery who have agreed to evaluate and placed chest tube on either right or left side pending CXR reading. Will monitor for 36-48 hours and if no resolution, will need chest tube placed on opposite side as well. Once placed, will likely paralyze again but hold on proning for now. Guarded p rognosis. 11/26/20: Paralytics are off. Continue current level of sedation. Will prone for 12 hours today and repeat ABG in the am. Continue lung protective strategy. Guarded prognosis. 11/25/20: Prone again to 16 hours, will prone at 12-12:30. Continue paralytics for 24 more hours. Discussed the idea of permissive hypercapnea again today and as long as pH is above 7.2 no changes should be made to TV and or RR without discussing with physician. Continue to monitor urine output, guarded prognosis. Hold on lasix therapy today. 11/24/20: Prone again today. Will try 48 hours of paralyzing the patient to see if this will help with oxygenation. Will speak with RT's about permissive hyp ercapnea and that pH's of 7.2 and greater are ok. Continue high doses steroids. Prognosis is still very very guarded. If not improvement with paralytics, will attempt transfer. 11/23/20: Prone again today for 12 hours. Continue High Dose steroids. Hold on lasix given marginal BP's. Prognosis is very very guarded to poor. Will continue all supportive measures. If not able to wean from 100%, will attempt transfer for ECMO. 11/20/20: WIll change to solumedrol 60q6 today. Hold on lasix today. Given his increasing oxygen requirement, will likely end up intubated. OVerall prognosis is very poor. 11/19/20: lasix 40mg IV x1 today. Will speak with ID but may consider increasing steroids to see if this will help with oxygenation. Continue Remdesivir. Prognosis remains guarded. 11/18/20: Continue bipap, goal is to attempt to prevent prolong intubation for as long as possible. Lasix again today. Steroids and Remdesivir. Guarded Prognosis. 11/17/20: Continue bipap therapy. Monitor mental state. High risk for Intubation. Continue BID anticoagulation. Prone if able. BNP was elevated but not grossly elevated. Will still give lasix with hopes of achieving net negative state. STeroids and remdesivir. Overall prognosis is guarded, extremely guarded. 1. Pulm- Agree with concern for covid. Agree with empiric abx but procal is only mildly elevated. Await cultures. Continue bipap therapy for now but will need to monitor closely. [facility] has ordered CTA, but I spoke with pharmacy and we will empirically treat with BID lovenox therapy. COntinue empiric steroid therapy for COVID until studies back. Not sure that he will be able to prone on bipap therapy. Monitor volume status and run as dry as possible. 2. Renal-normal function but all electrolytes abnormal. HYponatremia and Hypochloremia volume up vs volume down. Sent BNP. Would suggest obtaning echo as well. Not sure what to make of elevated lactate unless that is from increased work of breathing or damage to other tissue unknown. May need to check LFT's and Coags as well. 3. Guarded Prognosis. CCT 31 minutes. Subjective Date of service: 11/29/20 Principal diagnosis: COVID-19 Interval history: Second chest tube placed on yesterday. CXR is stable. ABG is unchanged. Still on 3 sedatives and no further paralytic therapy. Objective Vital Signs - 12hr 11/28/20 11/28/20 11/28/20 23:15 23:30 23:35 Temperature 98.8 F Pulse Rate 78 87 Pulse Rate [ From Monitor] Respiratory 22 25 H Rate Blood Pressure 87/60 94/67 O2 Sat by Pulse 91 93 Oximetry 11/28/20 11/29/20 11/29/20 23:46 00:00 00:06 Temperature Pulse Rate 89 97 H 88 Pulse Rate [ From Monitor] Respiratory 24 30 H Rate Blood Pressure 133/80 136/83 136/83 O2 Sat by Pulse 89 89 92 Oximetry 11/29/20 11/29/20 11/29/20 00:15 00:30 00:45 Temperature Pulse Rate 91 H 88 87 Pulse Rate [ From Monitor] Respiratory 29 H 26 H 31 H Rate Blood Pressure 139/75 132/75 107/67 O2 Sat by Pulse 89 89 89 Oximetry 11/29/20 11/29/20 11/29/20 01:00 01:15 01:30 Temperature Pulse Rate 83 83 82 Pulse Rate [ 72 From Monitor] Respiratory 19 31 H 31 H Rate Blood Pressure 106/64 117/68 119/68 O2 Sat by Pulse 92 89 90 Oximetry 11/29/20 11/29/20 11/29/20 01:45 02:00 02:15 Temperature Pulse Rate 78 79 77 Pulse Rate [ From Monitor] Respiratory 29 H 30 H 31 H Rate Blood Pressure 115/69 113/67 112/65 O2 Sat by Pulse 91 91 90 Oximetry 11/29/20 11/29/20 11/29/20 02:30 02:45 03:00 Temperature Pulse Rate 79 79 76 Pulse Rate [ 72 From Monitor] Respiratory 29 H 30 H 28 H Rate Blood Pressure 114/65 102/63 104/62 O2 Sat by Pulse 90 91 92 Oximetry 11/29/20 11/29/20 11/29/20 03:15 03:16 03:30 Temperature 98.7 F Pulse Rate 76 77 Pulse Rate [ From Monitor] Respiratory 30 H 28 H Rate Blood Pressure 109/61 98/61 O2 Sat by Pulse 91 91 Oximetry 11/29/20 11/29/20 11/29/20 03:35 03:45 04:00 Temperature Pulse Rate 75 74 68 Pulse Rate [ From Monitor] Respiratory 25 H 28 H Rate Blood Pressure 103/60 93/61 O2 Sat by Pulse 93 93 93 Oximetry 11/29/20 11/29/20 11/29/20 04:15 04:30 04:35 Temperature Pulse Rate 66 69 69 Pulse Rate [ 72 From Monitor] Respiratory 25 H 30 H 19 Rate Blood Pressure 96/61 100/59 O2 Sat by Pulse 94 95 94 Oximetry 11/29/20 11/29/20 11/29/20 04:45 05:00 05:15 Temperature Pulse Rate 70 67 68 Pulse Rate [ From Monitor] Respiratory 30 H 30 H 24 Rate Blood Pressure 100/63 97/62 101/60 O2 Sat by Pulse 95 95 95 Oximetry 11/29/20 11/29/20 11/29/20 05:30 05:44 05:45 Temperature Pulse Rate 67 63 Pulse Rate [ From Monitor] Respiratory 28 H 19 28 H Rate Blood Pressure 107/62 103/57 O2 Sat by Pulse 93 94 92 Oximetry 11/29/20 11/29/20 11/29/20 06:00 06:15 06:30 Temperature Pulse Rate 66 68 62 Pulse Rate [ From Monitor] Respiratory 30 H 27 H 31 H Rate Blood Pressure 101/62 104/58 102/59 O2 Sat by Pulse 94 93 92 Oximetry 11/29/20 11/29/20 11/29/20 06:45 07:00 07:15 Temperature Pulse Rate 62 63 67 Pulse Rate [ From Monitor] Respiratory 26 H 26 H 21 Rate Blood Pressure 100/56 106/62 102/60 O2 Sat by Pulse 93 92 93 Oximetry 11/29/20 11/29/20 11/29/20 07:30 07:45 08:00 Temperature 97.8 F Pulse Rate 65 64 63 Pulse Rate [ 72 From Monitor] Respiratory 21 24 28 H Rate Blood Pressure 103/62 99/60 100/63 O2 Sat by Pulse 93 92 94 Oximetry 11/29/20 11/29/20 11/29/20 08:13 08:15 08:30 Temperature Pulse Rate 66 64 64 Pulse Rate [ From Monitor] Respiratory 28 H 30 H Rate Blood Pressure 104/62 104/62 107/62 O2 Sat by Pulse 94 95 94 Oximetry 11/29/20 11/29/20 11/29/20 08:45 09:00 09:15 Temperature Pulse Rate 62 66 63 Pulse Rate [ From Monitor] Respiratory 28 H 30 H 29 H Rate Blood Pressure 105/62 107/60 104/57 O2 Sat by Pulse 96 96 95 Oximetry 11/29/20 11/29/20 11/29/20 09:30 09:45 10:00 Temperature Pulse Rate 65 62 61 Pulse Rate [ From Monitor] Respiratory 27 H 25 H 29 H Rate Blood Pressure 107/60 103/60 102/59 O2 Sat by Pulse 94 95 92 Oximetry 11/29/20 11/29/20 11/29/20 10:15 10:30 10:45 Temperature Pulse Rate 60 64 63 Pulse Rate [ From Monitor] Respiratory 21 20 22 Rate Blood Pressure 103/62 102/62 102/62 O2 Sat by Pulse 92 93 95 Oximetry 11/29/20 11:00 Temperature Pulse Rate 65 Pulse Rate [ From Monitor] Respiratory 26 H Rate Blood Pressure 104/64 O2 Sat by Pulse 95 Oximetry Constitutional: alert ENT: other (Now intubated) Ascultation: Bilateral: rales, rhonchi Percussion: Bilateral: not dull Cardiovascular: regular rate and rhythm Gastrointestinal: soft, non-tender CBC and BMP: 11/28/20 03:45 11/28/20 03:45 ABG, PT/INR, D-dimer: ABG ABG pH 7.401 (7.320-7.450) 11/29/20 04:41 POC ABG pCO2 55.1 mmHg (32.0-48.0) H 11/29/20 04:41 POC ABG pO2 53.6 mmHg (83-108) L 11/29/20 04:41 POC ABG HCO3 33.4 11/29/20 04:41 PT/INR, D-dimer D-Dimer 926.11 ng/mlDDU (0-234) H 11/26/20 06:04 Abnormal lab findings: Abnormal Labs 11/15/20 11/15/20 11/15/20 10:39 10:39 10:39 WBC 14.3 H RBC 5.17 H Lymph % (Auto) 7.8 L [place] % (Auto) 7.6 H Lymph # (Auto) 1.1 L [place] # (Auto) 1.1 H Baso # (Auto) Seg Neutrophils % 83.3 H Seg Neuts % (Manual) Lymphocytes % (Manual) Seg Neutrophils # 11.9 H Seg Neutrophils # Man Lymphocytes # (Manual) D-Dimer ABG pH POC ABG pCO2 POC ABG pO2 ABG Oxyhemoglobin ABG Sodium ABG Potassium ABG Chloride ABG Glucose Sodium 128 L Chloride 96.0 L Carbon Dioxide BUN Creatinine 0.7 L Glucose 238 H POC Glucose Hemoglobin A1c Lactic Acid 4.10 H* Calcium 7.0 L Ferritin Total Bilirubin 1.40 H AST 49 H ALT 70 H Alkaline Phosphatase Lactate Dehydrogenase 663 H C-Reactive Protein 19.80 H Total Protein Albumin 2.9 L Arterial Blood Glucose Arterial Blood Ionized Calcium Ur Specific [place] Coronavirus (PCR) 11/15/20 11/15/20 11/15/20 10:39 10:39 11:20 WBC RBC Lymph % (Auto) [place] % (Auto) Lymph # (Auto) [place] # (Auto) Baso # (Auto) Seg Neutrophils % Seg Neuts % (Manual) Lymphocytes % (Manual) Seg Neutrophils # Seg Neutrophils # Man Lymphocytes # (Manual) D-Dimer > 70468 H ABG pH POC ABG pCO2 29.9 L POC ABG pO2 137.3 H ABG Oxyhemoglobin ABG Sodium 126.5 L ABG Potassium ABG Chloride ABG Glucose 248 H Sodium Chloride Carbon Dioxide BUN Creatinine Glucose POC Glucose Hemoglobin A1c Lactic Acid Calcium Ferritin 672.8 H Total Bilirubin AST ALT Alkaline Phosphatase Lactate Dehydrogenase C-Reactive Protein Total Protein Albumin Arterial Blood Glucose 248 H Arterial Blood Ionized Calcium 4.1 L Ur Specific [place] Coronavirus (PCR) 11/15/20 11/15/20 11/16/20 13:41 23:41 01:45 WBC RBC Lymph % (Auto) [place] % (Auto) Lymph # (Auto) [place] # (Auto) Baso # (Auto) Seg Neutrophils % Seg Neuts % (Manual) Lymphocytes % (Manual) Seg Neutrophils # Seg Neutrophils # Man Lymphocytes # (Manual) D-Dimer ABG pH POC ABG pCO2 POC ABG pO2 ABG Oxyhemoglobin ABG Sodium ABG Potassium ABG Chloride ABG Glucose Sodium Chloride Carbon Dioxide BUN Creatinine Glucose POC Glucose 284 H Hemoglobin A1c Lactic Acid 2.30 H* Calcium Ferritin Total Bilirubin AST ALT Alkaline Phosphatase Lactate Dehydrogenase C-Reactive Protein Total Protein Albumin Arterial Blood Glucose Arterial Blood Ionized Calcium Ur Specific [place] 1.037 H Coronavirus (PCR) 11/16/20 11/16/20 11/16/20 05:29 05:29 05:29 WBC 12.9 H RBC Lymph % (Auto) 4.5 L [place] % (Auto) Lymph # (Auto) 0.6 L [place] # (Auto) Baso # (Auto) 0.2 H Seg Neutrophils % 89.8 H Seg Neuts % (Manual) Lymphocytes % (Manual) Seg Neutrophils # 11.5 H Seg Neutrophils # Man Lymphocytes # (Manual) D-Dimer ABG pH POC ABG pCO2 POC ABG pO2 ABG Oxyhemoglobin ABG Sodium ABG Potassium ABG Chloride ABG Glucose Sodium 131 L Chloride Carbon Dioxide 21 L BUN 23 H Creatinine 0.6 L Glucose 342 H POC Glucose Hemoglobin A1c Lactic Acid 2.60 H* Calcium 7.0 L Ferritin Total Bilirubin AST ALT Alkaline Phosphatase Lactate Dehydrogenase C-Reactive Protein Total Protein Albumin 2.4 L Arterial Blood Glucose Arterial Blood Ionized Calcium Ur Specific [place] Coronavirus (PCR) 11/16/20 11/16/20 11/16/20 05:29 08:11 12:11 WBC RBC Lymph % (Auto) [place] % (Auto) Lymph # (Auto) [place] # (Auto) Baso # (Auto) Seg Neutrophils % Seg Neuts % (Manual) Lymphocytes % (Manual) Seg Neutrophils # Seg Neutrophils # Man Lymphocytes # (Manual) D-Dimer ABG pH POC ABG pCO2 POC ABG pO2 ABG Oxyhemoglobin ABG Sodium ABG Potassium ABG Chloride ABG Glucose Sodium Chloride Carbon Dioxide BUN Creatinine Glucose POC Glucose 329 H 320 H Hemoglobin A1c 11.7 H Lactic Acid Calcium Ferritin Total Bilirubin AST ALT Alkaline Phosphatase Lactate Dehydrogenase C-Reactive Protein Total Protein Albumin Arterial Blood Glucose Arterial Blood Ionized Calcium Ur Specific [place] Coronavirus (PCR) 11/16/20 11/16/20 11/16/20 16:13 21:29 Unknown WBC RBC Lymph % (Auto) [place] % (Auto) Lymph # (Auto) [place] # (Auto) Baso # (Auto) Seg Neutrophils % Seg Neuts % (Manual) Lymphocytes % (Manual) Seg Neutrophils # Seg Neutrophils # Man Lymphocytes # (Manual) D-Dimer ABG pH POC ABG pCO2 POC ABG pO2 ABG Oxyhemoglobin ABG Sodium ABG Potassium ABG Chloride ABG Glucose Sodium Chloride Carbon Dioxide BUN Creatinine Glucose POC Glucose 257 H 376 H Hemoglobin A1c Lactic Acid Calcium Ferritin Total Bilirubin AST ALT Alkaline Phosphatase Lactate Dehydrogenase C-Reactive Protein Total Protein Albumin Arterial Blood Glucose Arterial Blood Ionized Calcium Ur Specific [place] Coronavirus (PCR) Positive A 11/17/20 11/17/20 11/17/20 07:42 12:07 17:25 WBC RBC Lymph % (Auto) [place] % (Auto) Lymph # (Auto) [place] # (Auto) Baso # (Auto) Seg Neutrophils % Seg Neuts % (Manual) Lymphocytes % (Manual) Seg Neutrophils # Seg Neutrophils # Man Lymphocytes # (Manual) D-Dimer ABG pH POC ABG pCO2 POC ABG pO2 ABG Oxyhemoglobin ABG Sodium ABG Potassium ABG Chloride ABG Glucose Sodium Chloride Carbon Dioxide BUN Creatinine Glucose POC Glucose 231 H 380 H 302 H Hemoglobin A1c Lactic Acid Calcium Ferritin Total Bilirubin AST ALT Alkaline Phosphatase Lactate Dehydrogenase C-Reactive Protein Total Protein Albumin Arterial Blood Glucose Arterial Blood Ionized Calcium Ur Specific [place] Coronavirus (PCR) 11/17/20 11/18/20 11/18/20 21:53 04:25 07:45 WBC RBC Lymph % (Auto) [place] % (Auto) Lymph # (Auto) [place] # (Auto) Baso # (Auto) Seg Neutrophils % Seg Neuts % (Manual) Lymphocytes % (Manual) Seg Neutrophils # Seg Neutrophils # Man Lymphocytes # (Manual) D-Dimer ABG pH POC ABG pCO2 POC ABG pO2 ABG Oxyhemoglobin ABG Sodium ABG Potassium ABG Chloride ABG Glucose Sodium 136 L Chloride Carbon Dioxide BUN 24 H Creatinine 0.6 L Glucose 212 H POC Glucose 293 H 216 H Hemoglobin A1c Lactic Acid Calcium 7.4 L Ferritin Total Bilirubin AST 41 H ALT Alkaline Phosphatase 142 H Lactate Dehydrogenase C-Reactive Protein Total Protein Albumin 2.3 L Arterial Blood Glucose Arterial Blood Ionized Calcium Ur Specific [place] Coronavirus (PCR) 11/18/20 11/18/20 11/18/20 12:28 15:58 21:37 WBC RBC Lymph % (Auto) [place] % (Auto) Lymph # (Auto) [place] # (Auto) Baso # (Auto) Seg Neutrophils % Seg Neuts % (Manual) Lymphocytes % (Manual) Seg Neutrophils # Seg Neutrophils # Man Lymphocytes # (Manual) D-Dimer ABG pH POC ABG pCO2 POC ABG pO2 ABG Oxyhemoglobin ABG Sodium ABG Potassium ABG Chloride ABG Glucose Sodium Chloride Carbon Dioxide BUN Creatinine Glucose POC Glucose 165 H 220 H 311 H Hemoglobin A1c Lactic Acid Calcium Ferritin Total Bilirubin AST ALT Alkaline Phosphatase Lactate Dehydrogenase C-Reactive Protein Total Protein Albumin Arterial Blood Glucose Arterial Blood Ionized Calcium Ur Specific [place] Coronavirus (PCR) 11/19/20 11/19/20 11/19/20 05:35 07:40 12:39 WBC RBC Lymph % (Auto) [place] % (Auto) Lymph # (Auto) [place] # (Auto) Baso # (Auto) Seg Neutrophils % Seg Neuts % (Manual) Lymphocytes % (Manual) Seg Neutrophils # Seg Neutrophils # Man Lymphocytes # (Manual) D-Dimer ABG pH POC ABG pCO2 POC ABG pO2 ABG Oxyhemoglobin ABG Sodium ABG Potassium ABG Chloride ABG Glucose Sodium 132 L Chloride Carbon Dioxide BUN 25 H Creatinine 0.5 L Glucose 179 H POC Glucose 149 H 306 H Hemoglobin A1c Lactic Acid Calcium 7.5 L Ferritin Total Bilirubin AST ALT Alkaline Phosphatase 139 H Lactate Dehydrogenase C-Reactive Protein Total Protein Albumin 2.4 L Arterial Blood Glucose Arterial Blood Ionized Calcium Ur Specific [place] Coronavirus (PCR) 11/19/20 11/19/20 11/20/20 16:17 21:25 08:30 WBC RBC Lymph % (Auto) [place] % (Auto) Lymph # (Auto) [place] # (Auto) Baso # (Auto) Seg Neutrophils % Seg Neuts % (Manual) Lymphocytes % (Manual) Seg Neutrophils # Seg Neutrophils # Man Lymphocytes # (Manual) D-Dimer ABG pH POC ABG pCO2 POC ABG pO2 ABG Oxyhemoglobin ABG Sodium ABG Potassium ABG Chloride ABG Glucose Sodium Chloride Carbon Dioxide BUN Creatinine Glucose POC Glucose 364 H 347 H 141 H Hemoglobin A1c Lactic Acid Calcium Ferritin Total Bilirubin AST ALT Alkaline Phosphatase Lactate Dehydrogenase C-Reactive Protein Total Protein Albumin Arterial Blood Glucose Arterial Blood Ionized Calcium Ur Specific [place] Coronavirus (PCR) 11/20/20 11/20/20 11/20/20 08:50 11:32 16:19 WBC RBC Lymph % (Auto) [place] % (Auto) Lymph # (Auto) [place] # (Auto) Baso # (Auto) Seg Neutrophils % Seg Neuts % (Manual) Lymphocytes % (Manual) Seg Neutrophils # Seg Neutrophils # Man Lymphocytes # (Manual) D-Dimer ABG pH POC ABG pCO2 POC ABG pO2 ABG Oxyhemoglobin ABG Sodium ABG Potassium ABG Chloride ABG Glucose Sodium 132 L Chloride 97.6 L Carbon Dioxide BUN 26 H Creatinine 0.5 L Glucose 201 H POC Glucose 296 H 327 H Hemoglobin A1c Lactic Acid Calcium 7.9 L Ferritin Total Bilirubin AST ALT Alkaline Phosphatase 137 H Lactate Dehydrogenase C-Reactive Protein Total Protein Albumin 2.6 L Arterial Blood Glucose Arterial Blood Ionized Calcium Ur Specific [place] Coronavirus (PCR) 11/20/20 11/21/20 11/21/20 22:09 07:59 13:51 WBC RBC Lymph % (Auto) [place] % (Auto) Lymph # (Auto) [place] # (Auto) Baso # (Auto) Seg Neutrophils % Seg Neuts % (Manual) Lymphocytes % (Manual) Seg Neutrophils # Seg Neutrophils # Man Lymphocytes # (Manual) D-Dimer ABG pH POC ABG pCO2 POC ABG pO2 ABG Oxyhemoglobin ABG Sodium ABG Potassium ABG Chloride ABG Glucose Sodium Chloride Carbon Dioxide BUN Creatinine Glucose POC Glucose 311 H 218 H 304 H Hemoglobin A1c Lactic Acid Calcium Ferritin Total Bilirubin AST ALT Alkaline Phosphatase Lactate Dehydrogenase C-Reactive Protein Total Protein Albumin Arterial Blood Glucose Arterial Blood Ionized Calcium Ur Specific [place] Coronavirus (PCR) 11/21/20 11/21/20 11/21/20 16:09 21:34 23:00 WBC RBC Lymph % (Auto) [place] % (Auto) Lymph # (Auto) [place] # (Auto) Baso # (Auto) Seg Neutrophils % Seg Neuts % (Manual) Lymphocytes % (Manual) Seg Neutrophils # Seg Neutrophils # Man Lymphocytes # (Manual) D-Dimer ABG pH 7.206 L POC ABG pCO2 59.3 H POC ABG pO2 76.7 L ABG Oxyhemoglobin ABG Sodium 133.1 L ABG Potassium ABG Chloride ABG Glucose 320 H Sodium Chloride Carbon Dioxide BUN Creatinine Glucose POC Glucose 239 H 279 H Hemoglobin A1c Lactic Acid Calcium Ferritin Total Bilirubin AST ALT Alkaline Phosphatase Lactate Dehydrogenase C-Reactive Protein Total Protein Albumin Arterial Blood Glucose 320 H Arterial Blood Ionized Calcium Ur Specific [place] Coronavirus (PCR) 11/22/20 11/22/20 11/22/20 04:52 04:52 04:52 WBC RBC Lymph % (Auto) [place] % (Auto) Lymph # (Auto) [place] # (Auto) Baso # (Auto) Seg Neutrophils % Seg Neuts % (Manual) Lymphocytes % (Manual) Seg Neutrophils # Seg Neutrophils # Man Lymphocytes # (Manual) D-Dimer 1858.36 H ABG pH POC ABG pCO2 POC ABG pO2 ABG Oxyhemoglobin ABG Sodium ABG Potassium ABG Chloride ABG Glucose Sodium Chloride Carbon Dioxide BUN Creatinine Glucose POC Glucose Hemoglobin A1c Lactic Acid Calcium Ferritin 734.2 H Total Bilirubin AST ALT Alkaline Phosphatase Lactate Dehydrogenase 404 H C-Reactive Protein 2.80 H Total Protein Albumin Arterial Blood Glucose Arterial Blood Ionized Calcium Ur Specific [place] Coronavirus (PCR) 11/22/20 11/22/20 11/22/20 05:12 05:39 11:50 WBC RBC Lymph % (Auto) [place] % (Auto) Lymph # (Auto) [place] # (Auto) Baso # (Auto) Seg Neutrophils % Seg Neuts % (Manual) Lymphocytes % (Manual) Seg Neutrophils # Seg Neutrophils # Man Lymphocytes # (Manual) D-Dimer ABG pH POC ABG pCO2 POC ABG pO2 51.0 L ABG Oxyhemoglobin ABG Sodium 131.2 L ABG Potassium 4.6 H ABG Chloride ABG Glucose 317 H Sodium Chloride Carbon Dioxide BUN Creatinine Glucose POC Glucose 340 H 417 H Hemoglobin A1c Lactic Acid Calcium Ferritin Total Bilirubin AST ALT Alkaline Phosphatase Lactate Dehydrogenase C-Reactive Protein Total Protein Albumin Arterial Blood Glucose 317 H Arterial Blood Ionized Calcium 4.4 L Ur Specific [place] Coronavirus (PCR) 11/22/20 11/22/20 11/22/20 12:22 12:22 17:10 WBC 14.4 H RBC Lymph % (Auto) [place] % (Auto) Lymph # (Auto) [place] # (Auto) Baso # (Auto) Seg Neutrophils % Seg Neuts % (Manual) 98.0 H Lymphocytes % (Manual) Seg Neutrophils # Seg Neutrophils # Man 14.1 H Lymphocytes # (Manual) 0.0 L D-Dimer ABG pH POC ABG pCO2 POC ABG pO2 ABG Oxyhemoglobin ABG Sodium ABG Potassium ABG Chloride ABG Glucose Sodium 132 L Chloride Carbon Dioxide BUN 36 H Creatinine 0.6 L Glucose 219 H POC Glucose 157 H Hemoglobin A1c Lactic Acid Calcium 7.2 L Ferritin Total Bilirubin AST ALT Alkaline Phosphatase Lactate Dehydrogenase C-Reactive Protein Total Protein Albumin Arterial Blood Glucose Arterial Blood Ionized Calcium Ur Specific [place] Coronavirus (PCR) 11/22/20 11/22/20 11/22/20 18:33 21:44 23:47 WBC RBC Lymph % (Auto) [place] % (Auto) Lymph # (Auto) [place] # (Auto) Baso # (Auto) Seg Neutrophils % Seg Neuts % (Manual) Lymphocytes % (Manual) Seg Neutrophils # Seg Neutrophils # Man Lymphocytes # (Manual) D-Dimer ABG pH POC ABG pCO2 POC ABG pO2 60.8 L ABG Oxyhemoglobin 88.1 L ABG Sodium 135.1 L ABG Potassium ABG Chloride ABG Glucose 141 H Sodium Chloride Carbon Dioxide BUN Creatinine Glucose POC Glucose 117 H 123 H Hemoglobin A1c Lactic Acid Calcium Ferritin Total Bilirubin AST ALT Alkaline Phosphatase Lactate Dehydrogenase C-Reactive Protein Total Protein Albumin Arterial Blood Glucose 141 H Arterial Blood Ionized Calcium Ur Specific [place] Coronavirus (PCR) 11/23/20 11/23/20 11/23/20 04:00 04:00 05:23 WBC 14.4 H RBC Lymph % (Auto) [place] % (Auto) Lymph # (Auto) [place] # (Auto) Baso # (Auto) Seg Neutrophils % Seg Neuts % (Manual) Lymphocytes % (Manual) Seg Neutrophils # Seg Neutrophils # Man Lymphocytes # (Manual) D-Dimer ABG pH POC ABG pCO2 POC ABG pO2 ABG Oxyhemoglobin ABG Sodium ABG Potassium ABG Chloride ABG Glucose Sodium 136 L Chloride Carbon Dioxide BUN 33 H Creatinine 0.6 L Glucose 115 H POC Glucose 173 H Hemoglobin A1c Lactic Acid Calcium 7.1 L Ferritin Total Bilirubin AST 64 H ALT 75 H Alkaline Phosphatase Lactate Dehydrogenase C-Reactive Protein Total Protein 5.9 L D Albumin 2.4 L Arterial Blood Glucose Arterial Blood Ionized Calcium Ur Specific [place] Coronavirus (PCR) 11/23/20 11/23/20 11/23/20 05:40 11:27 17:10 WBC RBC Lymph % (Auto) [place] % (Auto) Lymph # (Auto) [place] # (Auto) Baso # (Auto) Seg Neutrophils % Seg Neuts % (Manual) Lymphocytes % (Manual) Seg Neutrophils # Seg Neutrophils # Man Lymphocytes # (Manual) D-Dimer ABG pH POC ABG pCO2 POC ABG pO2 56.5 L ABG Oxyhemoglobin ABG Sodium ABG Potassium ABG Chloride 109.0 H ABG Glucose 114 H Sodium Chloride Carbon Dioxide BUN Creatinine Glucose POC Glucose 114 H 136 H Hemoglobin A1c Lactic Acid Calcium Ferritin Total Bilirubin AST ALT Alkaline Phosphatase Lactate Dehydrogenase C-Reactive Protein Total Protein Albumin Arterial Blood Glucose 114 H Arterial Blood Ionized Calcium 4.5 L Ur Specific [place] Coronavirus (PCR) 11/24/20 11/24/20 11/24/20 05:14 05:14 05:14 WBC RBC Lymph % (Auto) [place] % (Auto) Lymph # (Auto) [place] # (Auto) Baso # (Auto) Seg Neutrophils % Seg Neuts % (Manual) Lymphocytes % (Manual) Seg Neutrophils # Seg Neutrophils # Man Lymphocytes # (Manual) D-Dimer 1433.39 H ABG pH POC ABG pCO2 POC ABG pO2 ABG Oxyhemoglobin ABG Sodium ABG Potassium ABG Chloride ABG Glucose Sodium Chloride Carbon Dioxide BUN Creatinine Glucose POC Glucose Hemoglobin A1c Lactic Acid Calcium Ferritin 997.5 H Total Bilirubin AST ALT Alkaline Phosphatase Lactate Dehydrogenase 463 H C-Reactive Protein Total Protein Albumin Arterial Blood Glucose Arterial Blood Ionized Calcium Ur Specific [place] Coronavirus (PCR) 11/24/20 11/24/20 11/24/20 05:31 05:36 12:05 WBC RBC Lymph % (Auto) [place] % (Auto) Lymph # (Auto) [place] # (Auto) Baso # (Auto) Seg Neutrophils % Seg Neuts % (Manual) Lymphocytes % (Manual) Seg Neutrophils # Seg Neutrophils # Man Lymphocytes # (Manual) D-Dimer ABG pH POC ABG pCO2 POC ABG pO2 57.2 L ABG Oxyhemoglobin ABG Sodium ABG Potassium ABG Chloride ABG Glucose 180 H Sodium Chloride Carbon Dioxide BUN Creatinine Glucose POC Glucose 199 H 143 H Hemoglobin A1c Lactic Acid Calcium Ferritin Total Bilirubin AST ALT Alkaline Phosphatase Lactate Dehydrogenase C-Reactive Protein Total Protein Albumin Arterial Blood Glucose 180 H Arterial Blood Ionized Calcium 4.5 L Ur Specific [place] Coronavirus (PCR) 11/24/20 11/24/20 11/24/20 12:14 17:47 23:47 WBC RBC Lymph % (Auto) [place] % (Auto) Lymph # (Auto) [place] # (Auto) Baso # (Auto) Seg Neutrophils % Seg Neuts % (Manual) Lymphocytes % (Manual) Seg Neutrophils # Seg Neutrophils # Man Lymphocytes # (Manual) D-Dimer ABG pH 7.261 L POC ABG pCO2 59.7 H POC ABG pO2 75.7 L ABG Oxyhemoglobin 92.5 L ABG Sodium ABG Potassium ABG Chloride 108.0 H ABG Glucose 150 H Sodium Chloride Carbon Dioxide BUN Creatinine Glucose POC Glucose 223 H 179 H Hemoglobin A1c Lactic Acid Calcium Ferritin Total Bilirubin AST ALT Alkaline Phosphatase Lactate Dehydrogenase C-Reactive Protein Total Protein Albumin Arterial Blood Glucose 150 H Arterial Blood Ionized Calcium Ur Specific [place] Coronavirus (PCR) 11/25/20 11/25/20 11/25/20 03:29 05:07 05:15 WBC 13.9 H RBC Lymph % (Auto) [place] % (Auto) Lymph # (Auto) [place] # (Auto) Baso # (Auto) Seg Neutrophils % Seg Neuts % (Manual) 97.0 H Lymphocytes % (Manual) Seg Neutrophils # Seg Neutrophils # Man 13.5 H Lymphocytes # (Manual) 0.0 L D-Dimer ABG pH 7.272 L POC ABG pCO2 69.0 H POC ABG pO2 132.9 H ABG Oxyhemoglobin ABG Sodium ABG Potassium ABG Chloride ABG Glucose 174 H Sodium Chloride Carbon Dioxide BUN Creatinine Glucose POC Glucose 168 H Hemoglobin A1c Lactic Acid Calcium Ferritin Total Bilirubin AST ALT Alkaline Phosphatase Lactate Dehydrogenase C-Reactive Protein Total Protein Albumin Arterial Blood Glucose 174 H Arterial Blood Ionized Calcium Ur Specific [place] Coronavirus (PCR) 11/25/20 11/25/20 11/25/20 05:15 11:25 17:35 WBC RBC Lymph % (Auto) [place] % (Auto) Lymph # (Auto) [place] # (Auto) Baso # (Auto) Seg Neutrophils % Seg Neuts % (Manual) Lymphocytes % (Manual) Seg Neutrophils # Seg Neutrophils # Man Lymphocytes # (Manual) D-Dimer ABG pH POC ABG pCO2 POC ABG pO2 ABG Oxyhemoglobin ABG Sodium ABG Potassium ABG Chloride ABG Glucose Sodium Chloride Carbon Dioxide BUN 29 H Creatinine 0.5 L Glucose 161 H POC Glucose 224 H 228 H Hemoglobin A1c Lactic Acid Calcium 7.8 L Ferritin Total Bilirubin AST 89 H ALT 129 H Alkaline Phosphatase Lactate Dehydrogenase C-Reactive Protein Total Protein 5.8 L Albumin 2.5 L Arterial Blood Glucose Arterial Blood Ionized Calcium Ur Specific [place] Coronavirus (PCR) 11/25/20 11/25/20 11/26/20 20:45 23:28 04:00 WBC RBC Lymph % (Auto) [place] % (Auto) Lymph # (Auto) [place] # (Auto) Baso # (Auto) Seg Neutrophils % Seg Neuts % (Manual) Lymphocytes % (Manual) Seg Neutrophils # Seg Neutrophils # Man Lymphocytes # (Manual) D-Dimer ABG pH POC ABG pCO2 POC ABG pO2 ABG Oxyhemoglobin ABG Sodium ABG Potassium ABG Chloride ABG Glucose Sodium Chloride Carbon Dioxide BUN Creatinine Glucose POC Glucose 177 H 243 H Hemoglobin A1c Lactic Acid Calcium Ferritin 778.8 H Total Bilirubin AST ALT Alkaline Phosphatase Lactate Dehydrogenase C-Reactive Protein Total Protein Albumin Arterial Blood Glucose Arterial Blood Ionized Calcium Ur Specific [place] Coronavirus (PCR) 11/26/20 11/26/20 11/26/20 04:00 05:34 06:04 WBC RBC Lymph % (Auto) [place] % (Auto) Lymph # (Auto) [place] # (Auto) Baso # (Auto) Seg Neutrophils % Seg Neuts % (Manual) Lymphocytes % (Manual) Seg Neutrophils # Seg Neutrophils # Man Lymphocytes # (Manual) D-Dimer 926.11 H ABG pH POC ABG pCO2 POC ABG pO2 ABG Oxyhemoglobin ABG Sodium ABG Potassium ABG Chloride ABG Glucose Sodium Chloride Carbon Dioxide 39 H D BUN 30 H Creatinine 0.5 L Glucose 193 H POC Glucose 178 H Hemoglobin A1c Lactic Acid Calcium 7.7 L Ferritin Total Bilirubin AST 65 H ALT 132 H Alkaline Phosphatase Lactate Dehydrogenase 288 H C-Reactive Protein 1.40 H Total Protein 5.7 L Albumin 2.4 L Arterial Blood Glucose Arterial Blood Ionized Calcium Ur Specific [place] Coronavirus (PCR) 11/26/20 11/26/20 11/26/20 06:04 08:47 11:20 WBC 12.4 H RBC Lymph % (Auto) [place] % (Auto) Lymph # (Auto) [place] # (Auto) Baso # (Auto) Seg Neutrophils % Seg Neuts % (Manual) 98.0 H Lymphocytes % (Manual) 1.0 L Seg Neutrophils # Seg Neutrophils # Man 12.2 H Lymphocytes # (Manual) 0.1 L D-Dimer ABG pH POC ABG pCO2 75.2 H POC ABG pO2 61.9 L ABG Oxyhemoglobin 90.3 L ABG Sodium ABG Potassium ABG Chloride ABG Glucose 243 H Sodium Chloride Carbon Dioxide BUN Creatinine Glucose POC Glucose 255 H Hemoglobin A1c Lactic Acid Calcium Ferritin Total Bilirubin AST ALT Alkaline Phosphatase Lactate Dehydrogenase C-Reactive Protein Total Protein Albumin Arterial Blood Glucose 243 H Arterial Blood Ionized Calcium Ur Specific [place] Coronavirus (PCR) 11/26/20 11/26/20 11/26/20 16:20 17:15 23:41 WBC RBC Lymph % (Auto) [place] % (Auto) Lymph # (Auto) [place] # (Auto) Baso # (Auto) Seg Neutrophils % Seg Neuts % (Manual) Lymphocytes % (Manual) Seg Neutrophils # Seg Neutrophils # Man Lymphocytes # (Manual) D-Dimer ABG pH POC ABG pCO2 66.6 H POC ABG pO2 78.1 L ABG Oxyhemoglobin ABG Sodium ABG Potassium ABG Chloride ABG Glucose 244 H Sodium Chloride Carbon Dioxide BUN Creatinine Glucose POC Glucose 219 H 210 H Hemoglobin A1c Lactic Acid Calcium Ferritin Total Bilirubin AST ALT Alkaline Phosphatase Lactate Dehydrogenase C-Reactive Protein Total Protein Albumin Arterial Blood Glucose 244 H Arterial Blood Ionized Calcium Ur Specific [place] Coronavirus (PCR) 11/27/20 11/27/20 11/27/20 04:46 05:38 06:25 WBC 13.8 H RBC Lymph % (Auto) 2.0 L [place] % (Auto) Lymph # (Auto) 0.3 L [place] # (Auto) Baso # (Auto) Seg Neutrophils % Seg Neuts % (Manual) 96.0 H Lymphocytes % (Manual) Seg Neutrophils # 12.7 H Seg Neutrophils # Man 13.2 H Lymphocytes # (Manual) 0.0 L D-Dimer ABG pH POC ABG pCO2 63.0 H POC ABG pO2 53.6 L ABG Oxyhemoglobin 87.8 L ABG Sodium 115.4 L ABG Potassium ABG Chloride ABG Glucose 219 H Sodium Chloride Carbon Dioxide BUN Creatinine Glucose POC Glucose 227 H Hemoglobin A1c Lactic Acid Calcium Ferritin Total Bilirubin AST ALT Alkaline Phosphatase Lactate Dehydrogenase C-Reactive Protein Total Protein Albumin Arterial Blood Glucose 219 H Arterial Blood Ionized Calcium Ur Specific [place] Coronavirus (PCR) 11/27/20 11/27/20 11/27/20 06:25 18:05 23:29 WBC RBC Lymph % (Auto) [place] % (Auto) Lymph # (Auto) [place] # (Auto) Baso # (Auto) Seg Neutrophils % Seg Neuts % (Manual) Lymphocytes % (Manual) Seg Neutrophils # Seg Neutrophils # Man Lymphocytes # (Manual) D-Dimer ABG pH POC ABG pCO2 POC ABG pO2 ABG Oxyhemoglobin ABG Sodium ABG Potassium ABG Chloride ABG Glucose Sodium Chloride Carbon Dioxide 38 H BUN 34 H Creatinine 0.4 L Glucose 243 H POC Glucose 329 H 227 H Hemoglobin A1c Lactic Acid Calcium 7.9 L Ferritin Total Bilirubin AST 50 H ALT 110 H Alkaline Phosphatase Lactate Dehydrogenase C-Reactive Protein Total Protein 6.1 L Albumin 2.4 L Arterial Blood Glucose Arterial Blood Ionized Calcium Ur Specific [place] Coronavirus (PCR) 11/28/20 11/28/20 11/28/20 03:45 03:45 03:46 WBC 12.2 H RBC Lymph % (Auto) [place] % (Auto) Lymph # (Auto) [place] # (Auto) Baso # (Auto) Seg Neutrophils % Seg Neuts % (Manual) 93.0 H Lymphocytes % (Manual) 2.0 L Seg Neutrophils # Seg Neutrophils # Man 11.3 H Lymphocytes # (Manual) 0.2 L D-Dimer ABG pH POC ABG pCO2 68.4 H POC ABG pO2 55.4 L ABG Oxyhemoglobin ABG Sodium ABG Potassium ABG Chloride ABG Glucose 197 H Sodium Chloride Carbon Dioxide 36 H BUN 37 H Creatinine 0.4 L Glucose 194 H POC Glucose Hemoglobin A1c Lactic Acid Calcium 8.1 L Ferritin Total Bilirubin AST ALT 86 H Alkaline Phosphatase Lactate Dehydrogenase C-Reactive Protein Total Protein 6.0 L Albumin 2.3 L Arterial Blood Glucose 197 H Arterial Blood Ionized Calcium Ur Specific [place] Coronavirus (PCR) 11/28/20 11/28/20 11/29/20 05:24 12:21 04:41 WBC RBC Lymph % (Auto) [place] % (Auto) Lymph # (Auto) [place] # (Auto) Baso # (Auto) Seg Neutrophils % Seg Neuts % (Manual) Lymphocytes % (Manual) Seg Neutrophils # Seg Neutrophils # Man Lymphocytes # (Manual) D-Dimer ABG pH POC ABG pCO2 55.1 H POC ABG pO2 53.6 L ABG Oxyhemoglobin 87.1 L ABG Sodium 131.2 L ABG Potassium ABG Chloride ABG Glucose 164 H Sodium Chloride Carbon Dioxide BUN Creatinine Glucose POC Glucose 173 H 126 H Hemoglobin A1c Lactic Acid Calcium Ferritin Total Bilirubin AST ALT Alkaline Phosphatase Lactate Dehydrogenase C-Reactive Protein Total Protein Albumin Arterial Blood Glucose 164 H Arterial Blood Ionized Calcium 4.4 L Ur Specific [place] Coronavirus (PCR) 11/29/20 05:29 WBC RBC Lymph % (Auto) [place] % (Auto) Lymph # (Auto) [place] # (Auto) Baso # (Auto) Seg Neutrophils % Seg Neuts % (Manual) Lymphocytes % (Manual) Seg Neutrophils # Seg Neutrophils # Man Lymphocytes # (Manual) D-Dimer ABG pH POC ABG pCO2 POC ABG pO2 ABG Oxyhemoglobin ABG Sodium ABG Potassium ABG Chloride ABG Glucose Sodium Chloride Carbon Dioxide BUN Creatinine Glucose POC Glucose 173 H Hemoglobin A1c Lactic Acid Calcium Ferritin Total Bilirubin AST ALT Alkaline Phosphatase Lactate Dehydrogenase C-Reactive Protein Total Protein Albumin Arterial Blood Glucose Arterial Blood Ionized Calcium Ur Specific [place] Coronavirus (PCR)
--- NOTE | 2020-11-29 12:38 | Progress Note ---
Assessment and Plan Assessment and plan: 59-year-old female presents with shortness of breath cough fever weakness. "1 to 2 days. Patient has severe hypoxia per EMS. Her saturations are in the low 80s. With all oxygen and nonrebreather came down to low 90s. Patient denies any past medical history. Exposure to coronavirus present. Does not have a primary care physician. 2/1: Patient continues on BiPAP throughout the night. Labs are remarkable for hypoxia with improving renal function but lactic acidosis without fever. CTA has been ordered to rule out pulmonary embolism. I agree with increasing enoxaparin to twice daily full dose for empiric treatment of pulmonary embolism. Will obtain ID consultation on further evaluation for possible underlying pneumonia versus COVID-19. We will also obtain echocardiogram for evaluation. Will discontinue fluids at this time. 2/2; Continue supportive care, Patient remains with very guarded prognosis, remains on BiPAP, continues on Remdesivir, and steroids. Will continue antico agulation, unable to get CTA Chest due to patients unstable clinical status. Will adjust insulin for better blood glucose 2/3: Continues on BIPAP, no clear improvement at this time. Will continue richelle roids therapy Remdesivir and also Full anticoagulation at this time. Will update family. Discussed with Stem Roller. 2/4: Taking a break from the BiPAP on high flow and nonrebreather 100% with saturation of 90% becomes hypoxic with any movement. Stem Roller input noted will get a dose of Lasix today. Will await a discussion with ID for possibly increasing steroid. I updated Patient's Cousin, Tayla Esquivel who is the emergency contact assembler. Blood sugar remains fluctuating secondary to steriods, Encouraged Prone positioning. Noted with mild hyponatremia we will continue to monitor and manage 2/5: Continue supportive care wean oxygen as tolerated prognosis remains guarded. Encouraged to progress as tolerated. Awaiting labs today. Discussed with nursing staff and patient at bedside. 2/6: Discontinued Dexamethasone as Solumedrol started secondary to increased oxygen demand. Will give additional insulin for better control. Continue oxygen support patient still on high flow. Prognosis still guarded 2/7: Patient was intubated and placed on mechanical ventilation. Continue current medication. Will check a.m. labs today. Noted still with hypotension. Doubt septic shock at this time as patient has no new fever. Will adjust insulin for better blood sugar control. 11/23: Patient admitted with COVID-19 despite all efforts patient remains severely hypoxic and now is intubated. Stem Roller input noted. Blood pressure marginal at this time. Very poor prognosis. Continue Solu-Medrol. 11/24. Patient remains very hypoxic. Blood pressure borderline. Plan for initiation of paralytic agents as per hosiery looper. Patient may need to be transferred if no improvement. 11/26. Off paralytics. Remains intubated. On steroids. Prognosis is poor. 11/27. Chest xray shows pneumomediastinum and subcutaneous emphysema. Surgery consulted. Plan for chest tube placement. Sputum culture grew MRSA. Patient started on vancomycin per ID. 11/28. Right chest tube placed yesterday by surgery. Repeat chest x-ray showed left small pneumothorax. Plan for chest tube placement on the left today. Remains on paralytic agents. 11/29. Remains intubated on vent. Had left chest tube placed yesterday. Vitals reviewed. Critical care following Problems --Acute respiratory failure with hypoxia 11/17 COVID 19 pneumonia Patient remains fully dependent on mechanical ventilatory support Stem Roller on board On solumedrol 60 q 6 ID on board Prognosis is poor --Pneumomediastinum, subcutaneous emphysema, small left-sided pneumothorax Right chest tube placed by surgery yesterday Left chest tube placed by surgery on 11/29 --Diabetes Mellitus Continue Insulin Monitor blood glucose closely --- Covid pneumonia Management as above ---MRSA pneumonia Vancomycin ID on board The high probability of a clinically significant, sudden or life threatening deterioration of the [pulmonary] system(s) required my full and direct attention, intervention and personal management. The aggregate critical care time was [35] minutes. This time is in addition to time spent performing reported procedures but includes the following: [X] Data Review and interpretation [X] Patient assessment and monitoring of vital signs [X] Documentation [X] Medication orders and management History Interval history: Remains fully dependent on ventilator Right chest tube placed by surgery Smal PTX on the left on chest xray. Hospitalist Physical - Physical exam Narrative exam: VITAL SIGNS: Reviewed. GENERAL: Sedated and intubated HEAD: No signs of head trauma. EYES: Pupils are equal. NECK: No adenopathy, no JVD. CHEST: Chest with diminished breath sounds bilaterally. No wheezes, rales, or rhonchi. CARDIAC: normal S1 and S2, without murmurs, gallops, or rubs. ABDOMEN: Soft, non tender and non distended. No rebound or guarding, and no masses palpated. Bowel Sounds normal. MUSCULOSKELETAL: No edema NEUROLOGIC EXAM: Sedated SKIN: No obvious lesions - Constitutional Vitals: Temp Pulse Resp BP Pulse Ox 97.8 F 57 L 26 H 94/58 95 11/29/20 08:00 11/29/20 12:04 11/29/20 11:00 11/29/20 12:04 11/29/20 12:04 HEART Score - HEART Score Troponin: Troponin T < 0.010 ng/mL (0.00-0.029) 11/22/20 Unknown Results - Labs CBC & Chem 7: 11/28/20 03:45 11/28/20 03:45 Labs: Laboratory Last Values WBC 12.2 K/mm3 (4.5-11.0) H 11/28/20 03:45 RBC 4.32 M/mm3 (3.65-5.03) 11/28/20 03:45 Hgb 12.7 gm/dl (11.8-15.2) 11/28/20 03:45 Hct 38.4 % (35.5-45.6) 11/28/20 03:45 MCV 89 fl (84-94) 11/28/20 03:45 MCH 30 pg (28-32) 11/28/20 03:45 MCHC 33 % (32-34) 11/28/20 03:45 RDW 13.7 % (13.2-15.2) 11/28/20 03:45 Plt Count 211 K/mm3 (140-440) 11/28/20 03:45 Lymph % (Auto) 2.0 % (13.4-35.0) L 11/27/20 06:25 [place] % (Auto) 5.2 % (0.0-7.3) 11/27/20 06:25 Eos % (Auto) 0.0 % (0.0-4.3) 11/27/20 06:25 Baso % (Auto) 0.1 % (0.0-1.8) 11/27/20 06:25 Lymph # (Auto) 0.3 K/mm3 (1.2-5.4) L 11/27/20 06:25 [place] # (Auto) 0.7 K/mm3 (0.0-0.8) 11/27/20 06:25 Eos # (Auto) 0.0 K/mm3 (0.0-0.4) 11/27/20 06:25 Baso # (Auto) 0.0 K/mm3 (0.0-0.1) 11/27/20 06:25 Add Manual Diff Complete 11/28/20 03:45 Total Counted 100 11/28/20 03:45 Seg Neutrophils % [employer] 11/28/20 03:45 Seg Neuts % (Manual) 93.0 % (40.0-70.0) H 11/28/20 03:45 Lymphocytes % (Manual) 2.0 % (13.4-35.0) L 11/28/20 03:45 Monocytes % (Manual) 5.0 % (0.0-7.3) 11/28/20 03:45 Nucleated RBC % Not Reportable 11/28/20 03:45 Seg Neutrophils # 12.7 K/mm3 (1.8-7.7) H 11/27/20 06:25 Seg Neutrophils # Man 11.3 K/mm3 (1.8-7.7) H 11/28/20 03:45 Band Neutrophils # 0.0 K/mm3 11/28/20 03:45 Lymphocytes # (Manual) 0.2 K/mm3 (1.2-5.4) L 11/28/20 03:45 Abs React Lymphs (Man) 0.0 K/mm3 11/28/20 03:45 Monocytes # (Manual) 0.6 K/mm3 (0.0-0.8) 11/28/20 03:45 Eosinophils # (Manual) 0.0 K/mm3 (0.0-0.4) 11/28/20 03:45 Basophils # (Manual) 0.0 K/mm3 (0.0-0.1) 11/28/20 03:45 Metamyelocytes # 0.0 K/mm3 11/28/20 03:45 Myelocytes # 0.0 K/mm3 11/28/20 03:45 Promyelocytes # 0.0 K/mm3 11/28/20 03:45 Blast Cells # 0.0 K/mm3 11/28/20 03:45 WBC Morphology Not Reportable 11/28/20 03:45 Hypersegmented Neuts Not Reportable 11/28/20 03:45 Hyposegmented Neuts Not Reportable 11/28/20 03:45 Hypogranular Neuts Not Reportable 11/28/20 03:45 Smudge Cells Not Reportable 11/28/20 03:45 Toxic Granulation Not Reportable 11/28/20 03:45 Toxic Vacuolation Not Reportable 11/28/20 03:45 Dohle Bodies Not Reportable 11/28/20 03:45 Pelger-Huet Anomaly Not Reportable 11/28/20 03:45 Tony Rods Not Reportable 11/28/20 03:45 Platelet Estimate Consistent w auto 11/28/20 03:45 Clumped Platelets Not Reportable 11/28/20 03:45 Plt Clumps, EDTA Not Reportable 11/28/20 03:45 Large Platelets Not Reportable 11/28/20 03:45 Giant Platelets Not Reportable 11/28/20 03:45 Platelet Satelliting Not Reportable 11/28/20 03:45 Plt Morphology Comment Not Reportable 11/28/20 03:45 RBC Morphology Not Reportable 11/28/20 03:45 Dimorphic RBCs Not Reportable 11/28/20 03:45 Polychromasia Not Reportable 11/28/20 03:45 Hypochromasia Not Reportable 11/28/20 03:45 Poikilocytosis Not Reportable 11/28/20 03:45 Anisocytosis Not Reportable 11/28/20 03:45 Microcytosis Not Reportable 11/28/20 03:45 Macrocytosis Not Reportable 11/28/20 03:45 Spherocytes Not Reportable 11/28/20 03:45 Pappenheimer Bodies Not Reportable 11/28/20 03:45 Sickle Cells Not Reportable 11/28/20 03:45 Target Cells Not Reportable 11/28/20 03:45 Tear Drop Cells Not Reportable 11/28/20 03:45 Ovalocytes Not Reportable 11/28/20 03:45 Helmet Cells Not Reportable 11/28/20 03:45 [place] Bodies Not Reportable 11/28/20 03:45 [place] Rings Not Reportable 11/28/20 03:45 Henrry Cells Not Reportable 11/28/20 03:45 Bite Cells Not Reportable 11/28/20 03:45 Crenated Cell Not Reportable 11/28/20 03:45 Elliptocytes Not Reportable 11/28/20 03:45 Acanthocytes (Spur) Not Reportable 11/28/20 03:45 Rouleaux Not Reportable 11/28/20 03:45 Hemoglobin C Crystals Not Reportable 11/28/20 03:45 Schistocytes Not Reportable 11/28/20 03:45 Malaria parasites Not Reportable 11/28/20 03:45 Yovani Bodies Not Reportable 11/28/20 03:45 Hem Pathologist Commnt No 11/28/20 03:45 D-Dimer 926.11 ng/mlDDU (0-234) H 11/26/20 06:04 ABG pH 7.401 (7.320-7.450) 11/29/20 04:41 POC ABG pCO2 55.1 mmHg (32.0-48.0) H 11/29/20 04:41 POC ABG pO2 53.6 mmHg (83-108) L 11/29/20 04:41 POC ABG HCO3 33.4 11/29/20 04:41 POC ABG Base Excess 7.1 11/29/20 04:41 ABG Hemoglobin 12.6 (12.0-17.5) 11/29/20 04:41 ABG Oxyhemoglobin 87.1 (94-98) L 11/29/20 04:41 ABG Methemoglobin 0.3 (0.0-1.5) 11/29/20 04:41 ABG Sodium 131.2 mmol/L (136.0-145.0) L 11/29/20 04:41 ABG Potassium 4.5 mmol/L (3.40-4.50) 11/29/20 04:41 ABG Chloride 101.0 mmol/L (98-107) 11/29/20 04:41 ABG Glucose 164 mg/dL (65-95) H 11/29/20 04:41 Carboxyhemoglobin 1.1 (0.5-1.5) 11/29/20 04:41 FiO2 80.0 11/29/20 04:41 Sodium 143 mmol/L (137-145) 11/28/20 03:45 Potassium 4.3 mmol/L (3.6-5.0) 11/28/20 03:45 Chloride 102.1 mmol/L (98-107) 11/28/20 03:45 Carbon Dioxide 36 mmol/L (22-30) H 11/28/20 03:45 Anion Gap 9 mmol/L 11/28/20 03:45 BUN 37 mg/dL (9-20) H 11/28/20 03:45 Creatinine 0.4 mg/dL (0.8-1.3) L 11/28/20 03:45 Estimated GFR > 60 ml/min 11/28/20 03:45 BUN/Creatinine Ratio 93 % 11/28/20 03:45 Glucose 194 mg/dL (75-100) H 11/28/20 03:45 POC Glucose 173 mg/dL (70-105) H 11/29/20 05:29 Hemoglobin A1c 11.7 % (4-6) H 11/16/20 05:29 Lactic Acid 2.60 mmol/L (0.7-2.0) H* 11/16/20 05:29 Calcium 8.1 mg/dL (8.4-10.2) L 11/28/20 03:45 Ferritin 778.8 ng/mL (30.0-300.0) H 11/26/20 04:00 Total Bilirubin 0.60 mg/dL (0.1-1.2) 11/28/20 03:45 AST 37 units/L (5-40) 11/28/20 03:45 ALT 86 units/L (7-56) H 11/28/20 03:45 Alkaline Phosphatase 125 units/L (35-129) 11/28/20 03:45 Lactate Dehydrogenase 288 units/L (91-180) H 11/26/20 04:00 Troponin T < 0.010 ng/mL (0.00-0.029) 11/22/20 Unknown C-Reactive Protein 1.40 mg/dL (0.00-1.30) H 11/26/20 04:00 NT-Pro-B Natriuret Pep 107.2 pg/mL (0-900) 11/17/20 10:21 Total Protein 6.0 g/dL (6.3-8.2) L 11/28/20 03:45 Albumin 2.3 g/dL (3.9-5) L 11/28/20 03:45 Albumin/Globulin Ratio 0.6 % 11/28/20 03:45 Procalcitonin 0.51 ng/mL (<0.15) 11/15/20 10:39 Arterial Blood Glucose 164 mg/dL (65-95) H 11/29/20 04:41 Arterial Blood Ionized Calcium 4.4 mg/dL (4.6-5.3) L 11/29/20 04:41 Urine Color [place] (Yellow) 11/16/20 01:45 Urine Turbidity Slightly-cloudy (Clear) 11/16/20 01:45 Urine pH 6.0 (5.0-7.0) 11/16/20 01:45 Ur Specific [place] 1.037 (1.003-1.030) H 11/16/20 01:45 Urine Protein 30 mg/dl mg/dL (Negative) 11/16/20 01:45 Urine Glucose (UA) >=500 mg/dL (Negative) 11/16/20 01:45 Urine Ketones 20 mg/dL (Negative) 11/16/20 01:45 Urine Blood Neg (Negative) 11/16/20 01:45 Urine Nitrite Neg (Negative) 11/16/20 01:45 Urine Bilirubin Neg (Negative) 11/16/20 01:45 Urine Urobilinogen 2.0 mg/dL (<2.0) 11/16/20 01:45 Ur Leukocyte Esterase Neg (Negative) 11/16/20 01:45 Urine WBC (Auto) 2.0 /HPF (0.0-6.0) 11/16/20 01:45 Urine RBC (Auto) 1.0 /HPF (0.0-6.0) 11/16/20 01:45 Urine Bacteria (Auto) 1+ /HPF (Negative) 11/16/20 01:45 Urine Mucus 3+ /HPF 11/16/20 01:45 Coronavirus (PCR) Positive (Negative) A 11/16/20 Unknown - Diagnostic Impressions Diagnostic Impressions: Echocardiogram 11/16/20 10:34 Transthoracic Echocardiogram Indication: Shortness of breath-COVID BP: 108/77 HR: 92 Conclusions *Global left ventricular systolic function is normal. *The estimated ejection fraction is 60-65%. *Mild to moderate concentric left ventricular hypertrophy is observed. *There is trace of mitral regurgitation. *There is mild to moderate tricuspid regurgitation. *There is evidence of mild pulmonary hypertension. *The right ventricular systolic pressure is calculated at 31 mmHg. Findings Left Ventricle: The left ventricular chamber size is normal. Mild to moderate concentric left ventricular hypertrophy is observed. Global left ventricular systolic function is normal. The estimated ejection fraction is 60-65%. Left Atrium: The left atrial chamber size is normal. Right Ventricle: The right ventricular cavity size is normal. The right ventricular global systolic function is normal. Right Atrium: The right atrial cavity size is normal. Aortic Valve: The aortic valve is trileaflet. There is no evidence of aortic regurgitation. There is no evidence of aortic stenosis. Mitral Valve: The mitral valve leaflets appear normal. There is trace of mitral regurgitation. There is no evidence of mitral stenosis. Tricuspid Valve: The tricuspid valve leaflets are normal. There is mild to moderate tricuspid regurgitation. The right ventricular systolic pressure is calculated at 31 mmHg. There is evidence of mild pulmonary hypertension. Pulmonic Valve: There is trace pulmonic regurgitation. Pericardium: There is no pericardial effusion. Aorta: There is no dilatation of the ascending aorta. There is no dilatation of the aortic root. Venous: The inferior vena cava appears normal in size. Measurements Chambers 2D Name Value Normal Range IVSd (2D) 0.81 cm (0.6 - 1.1) LVPWd (2D) 0.79 cm (0.6 - 1.1) LVIDd (2D) 4.22 cm (3.7 - 5.6) LVIDs (2D) 3.1 cm (2 - 3.8) LV FS (2D) 26.71 % - EF Teichholz (2D) 52.55 % - Ao root diameter (2D) 3.34 cm (2 - 3.7) Volumes/Mass Name Value Normal Range LA ESV SP 4CH (A/L) 10.87 ml - LA ESV SP 2CH (A/L) 18.74 ml - LA ESV BP (A/L) 16.38 ml - LA ESV BP (A/L) index 8.62 ml/m2 - LA ESV SP 4CH (MOD) 10.32 ml - LA ESV SP 2CH (MOD) 17.66 ml - LA ESV BP (MOD) 15.12 ml - LA ESV BP (MOD) index 7.96 ml/m2 - Diastolic/Systolic Function Name Value Normal Range MV E-wave Vmax 0.76 m/sec - MV deceleration time 133.63 msec - MV A-wave Vmax 1.1 m/sec - MV E:A ratio 0.69 ratio - Aortic Valve Name Value Normal Range AV Vmax 1.44 m/sec - AV VTI 22.94 cm - AV peak gradient 8.33 mmHg - AV mean gradient 4.73 mmHg - LVOT diameter 2.2 cm - LVOT Vmax 1.04 m/sec - LVOT VTI 18.88 cm - LVOT peak gradient 4.34 mmHg - LVOT mean gradient 2.31 mmHg - SV LVOT 72.05 ml - EVANGELISTA (continuity Vmax) 2.75 cm2 - EVANGELISTA (continuity VTI) 3.14 cm2 - Tricuspid Valve Name Value Normal Range TR Vmax 2.64 m/sec - TR peak gradient 28 mmHg - RAP 3 mmHg - RVSP 31 mmHg - Gupta/IV: Voiding Method Indwelling Catheter IV Catheter Type [Left Peripheral IV Antecubital] Active Medications - Current Medications Current Medications: Generic Name Dose Route Start Last Admin Trade Name Freq PRN Reason Stop Dose Admin Acetaminophen 650 mg 11/15/20 23:55 11/18/20 22:19 Acetaminophen 325 Mg Tab PO 650 mg Q4H PRN Administration Pain MILD(1-3)/Fever >100.5/BUTTS Lipase/Protease/Amylase 1 each 11/23/20 11:53 Lipase 10,500/Protease 25,000/Amylase 43,750 (Units) Dr Slater FEEDTUBE PRN PRN For Clogged Feeding Tube Enoxaparin Sodium 80 mg 11/16/20 10:00 11/29/20 09:38 Enoxaparin 80 Mg/0.8 Ml Inj SUB-Q 80 mg Q12HR RAEANN Administration Famotidine 20 mg 11/22/20 22:00 11/29/20 09:38 Famotidine 20 Mg/2 Ml Inj IV 20 mg BID RAEANN Administration Fentanyl 50 mcg 11/21/20 21:53 Fentanyl 100 Mcg/2 Ml Inj IV Q10MIN PRN ANALGESIA Hydrophilic Ointment 1 applic 11/21/20 21:53 Lip Therapy Vaseline TP Q2HR PRN Dry Lips Fentanyl Citrate 2,000 mcg in 100 mls @ 3.625 mls/hr 11/21/20 22:00 11/29/20 07:33 Fentanyl Drip Premix IV 4 mcg/kg/hr TITR RAEANN 14.5 mls/hr Administration Protocol 1 MCG/KG/HR Midazolam HCl 100 mg/ Sodium 100 mls @ 2 mls/hr 11/21/20 22:00 11/29/20 01:19 Chloride IV 5 mg/hr TITR RAEANN 5 mls/hr Administration Protocol 2 MG/HR Norepinephrine 4 mg in 250 mls @ 7.5 mls/hr 11/22/20 17:00 Levophed Drip 4 Mg/Ns 250 Ml IV TITR RAEANN Protocol 2 MCG/MIN Propofol 1,000 mg in 100 mls @ 2.175 mls/hr 11/27/20 12:00 11/29/20 09:52 Diprivan 10 Mg/Ml IV 20 mcg/kg/min TITR RAEANN 8.7 mls/hr Administration Protocol 5 MCG/KG/MIN Vancomycin HCl 1 gm in 250 mls @ 166.667 mls/hr 11/27/20 04:00 11/29/20 05:11 Vancomycin/Ns 1 Gm/250 Ml IV 166.667 mls/hr Q12H [facility] Administration Insulin Glargine 10 units 11/29/20 22:00 Insulin Glargine 100 Units/Ml SUB-Q QHS [facility] Insulin Human Lispro 0 unit 11/22/20 06:00 11/29/20 05:38 Insulin Lispro 100 Unit/Ml SUB-Q 3 unit Q6HR [facility] Administration Protocol Methylprednisolone Sodium Succinate 60 mg 11/20/20 12:00 11/29/20 05:11 Methylprednisolone Sod Succinate 125 Mg/2 Ml Inj IV 60 mg Q6HR [facility] Administration Metoclopramide HCl 10 mg 11/15/20 23:55 Metoclopramide 10 Mg/2 Ml Inj IV Q6H PRN Nausea And Vomiting Midazolam HCl 2 mg 11/21/20 21:53 Midazolam 2 Mg/2 Ml Inj IV Q10MIN PRN Sedation Multi-Ingred Cream/Lotion/Oil/Oint 1 applic 11/21/20 21:53 Mineral Oil/Petrolatum, White Ophth Oint 3.5 Gm OU Q4HR PRN Dry Eye(s) Ondansetron HCl 4 mg 11/15/20 23:55 Ondansetron 4 Mg/2 Ml Inj IV Q8H PRN Nausea And Vomiting Simple Syrup 15 ml 11/23/20 11:53 Simple Syrup 15 Ml FEEDTUBE PRN PRN Hypoglycemia Simple Syrup 30 ml 11/23/20 11:53 Simple Syrup 15 Ml FEEDTUBE PRN PRN Hypoglycemia Sodium Bicarbonate 325 mg 11/23/20 11:53 Sodium Bicarbonate 325 Mg Tab FEEDTUBE PRN PRN For Clogged Feeding Tube Sodium Chloride 10 ml 11/16/20 10:00 11/29/20 09:02 Sodium Chloride 0.9% 10 Ml Flush Syringe IV 10 ml BID RAEANN Administration Sodium Chloride 10 ml 11/15/20 23:55 Sodium Chloride 0.9% 10 Ml Flush Syringe IV PRN PRN LINE FLUSH Nutrition/Malnutrition Assess - Dietary Evaluation Nutrition/Malnutrition Findings: Nutrition Notes Start: 11/20/20 12:03 Freq: Status: Active Protocol: Document 11/26/20 10:59 KIT (Rec: 11/26/20 11:25 KIT [id number]) Co-Sign 11/26/20 10:59 NHALL Nutrition Notes Initial or Follow up Reassessment Current Diagnosis Diabetes,Sepsis,Respiratory Failure Other Pertinent Diagnosis Bilat pneu, COVID-19 (+) Current Diet Glucerna 1.2 at 100 ml/hr when not proned, 20 ml when proned Labs/Tests BUN 51 Cr 3.4 BG 189 Pertinent Medications Levophed Height 5 ft 6 in Weight 72.5 kg Usual Body Weight 80.5 kg [place] Body Weight (kg) 64.54 BMI 25.7 Weight Status Overweight Subjective/Other Information F/u TF tolerance. Pt coded blue this AM and TF on hold for now. Percent of energy/protein needs met: 0%/0% Burn Absent Trauma Absent GI Symptoms None Difficulty In Swallowing,Chewing Current % PO Negligible Minimum of two criteria Yes Energy Intake (severe) < or equal to 50% Estimated Energy Requirement > or equal to 5 days Interpretation of Weight Loss (severe) >2% in 1 week #3 Nutrition Diagnosis Inadequate oral intake Diagnosis Progress(for reassessment Continues documentation) #2 Nutrition Diagnosis Malnutrition Diagnosis Progress(for reassessment Continues documentation) #1 Nutrition Diagnosis Unintended weight loss Diagnosis Progress(for reassessment Continues documentation) Is patient on ventilator? Yes Is Patient Ambulatory and/or Out of Bed No REE-([place]-confined to bed) 1790.004 Calculation Used for Recommendations [place] Additional Notes Protein needs 1.2-2g/k-145g/day Fluid 1ml/kcal or per MD Nutrition Intervention Change Diet Order: Continue TF if medically able Nutrition Support: Supine (12h): Glucerna 1.2 at 100ml/hr with flush of 100 ml q4h. Prone (12h): Glucerna 1.2 at 20 ml/hr with flush of 50 ml q4h. Kcal 1,728 Protein (gm) 86 Fluid (mL) 1,159 Goal #1 TF tolerance Goal #2 Meet at least 75% of energy and protein needs via TF Anticipated Discharge Needs: Unknown at this time Follow-Up By: 12/01/20 Additional Comments F/u TF re-start, vent status, and proning regimen
[2020-11-29 13:53] LABS: Alanine Aminotransferase 102 units/L (7-56); Albumin 2.1 g/dL (3.9-5); Blood Urea Nitrogen 32 mg/dL (9-20); Calcium 7.2 mg/dL (8.4-10.2); Hemolysis Index 0
[2020-11-29 14:01] LABS: BUN/Creatinine Ratio 80
--- NOTE | 2020-11-29 15:49 | Progress Note ---
Assessment and Plan 59-year-old male with 1. COVID PNA 2. VDRF 3. sepsis 4. Bilateral pneumothorax s/p bilateral chest tube placement CXR 11/29/2020: Satisfactory positioning of chest tubes. Tiny apical PTX b/l. Stable subcutaneous emphysema. VENT: FIO2 80%, PEEP 16, TV: 350 RR: 30 Plan: 1. Vent management per ICU team 2. Continue b/l chest tubes to -[id number] suction 3. daily CXR Guarded prognosis. Thank you for this consultation. Please call with any questions or concerns. Evaluation and treatment of this patient was during the time of the national and state emergency arising from COVID19 coronavirus pandemic. Treatment and procedures performed meet the current and available best practice and guidelines for patient during the COVID pandemic. Subjective Date of service: 11/29/20 Narrative: Pt seen and examined. No acute changes in condition. Objective Vital Signs - 12hr 11/29/20 11/29/20 11/29/20 04:00 04:15 04:30 Temperature Pulse Rate 68 66 69 Pulse Rate [ From Monitor] Respiratory 28 H 25 H 30 H Rate Blood Pressure 93/61 96/61 100/59 O2 Sat by Pulse 93 94 95 Oximetry 11/29/20 11/29/20 11/29/20 04:35 04:45 05:00 Temperature Pulse Rate 69 70 67 Pulse Rate [ 72 From Monitor] Respiratory 19 30 H 30 H Rate Blood Pressure 100/63 97/62 O2 Sat by Pulse 94 95 95 Oximetry 11/29/20 11/29/20 11/29/20 05:15 05:30 05:44 Temperature Pulse Rate 68 67 Pulse Rate [ From Monitor] Respiratory 24 28 H 19 Rate Blood Pressure 101/60 107/62 O2 Sat by Pulse 95 93 94 Oximetry 11/29/20 11/29/20 11/29/20 05:45 06:00 06:15 Temperature Pulse Rate 63 66 68 Pulse Rate [ From Monitor] Respiratory 28 H 30 H 27 H Rate Blood Pressure 103/57 101/62 104/58 O2 Sat by Pulse 92 94 93 Oximetry 11/29/20 11/29/20 11/29/20 06:30 06:45 07:00 Temperature Pulse Rate 62 62 63 Pulse Rate [ From Monitor] Respiratory 31 H 26 H 26 H Rate Blood Pressure 102/59 100/56 106/62 O2 Sat by Pulse 92 93 92 Oximetry 11/29/20 11/29/20 11/29/20 07:15 07:30 07:45 Temperature Pulse Rate 67 65 64 Pulse Rate [ From Monitor] Respiratory 21 21 24 Rate Blood Pressure 102/60 103/62 99/60 O2 Sat by Pulse 93 93 92 Oximetry 11/29/20 11/29/20 11/29/20 08:00 08:13 08:15 Temperature 97.8 F Pulse Rate 63 66 64 Pulse Rate [ 72 From Monitor] Respiratory 28 H 28 H Rate Blood Pressure 100/63 104/62 104/62 O2 Sat by Pulse 94 94 95 Oximetry 11/29/20 11/29/20 11/29/20 08:30 08:45 09:00 Temperature Pulse Rate 64 62 66 Pulse Rate [ From Monitor] Respiratory 30 H 28 H 30 H Rate Blood Pressure 107/62 105/62 107/60 O2 Sat by Pulse 94 96 96 Oximetry 11/29/20 11/29/20 11/29/20 09:15 09:30 09:45 Temperature Pulse Rate 63 65 62 Pulse Rate [ From Monitor] Respiratory 29 H 27 H 25 H Rate Blood Pressure 104/57 107/60 103/60 O2 Sat by Pulse 95 94 95 Oximetry 11/29/20 11/29/20 11/29/20 10:00 10:15 10:30 Temperature Pulse Rate 61 60 64 Pulse Rate [ From Monitor] Respiratory 29 H 21 20 Rate Blood Pressure 102/59 103/62 102/62 O2 Sat by Pulse 92 92 93 Oximetry 11/29/20 11/29/20 11/29/20 10:45 11:00 11:15 Temperature Pulse Rate 63 65 60 Pulse Rate [ From Monitor] Respiratory 22 26 H 28 H Rate Blood Pressure 102/62 104/64 99/60 O2 Sat by Pulse 95 95 94 Oximetry 11/29/20 11/29/20 11/29/20 11:30 11:45 12:00 Temperature Pulse Rate 60 56 L 59 L Pulse Rate [ 72 From Monitor] Respiratory 26 H 24 23 Rate Blood Pressure 99/58 99/56 94/58 O2 Sat by Pulse 94 93 94 Oximetry 11/29/20 11/29/20 11/29/20 12:04 12:15 12:30 Temperature Pulse Rate 57 L 57 L 58 L Pulse Rate [ From Monitor] Respiratory 31 H 28 H Rate Blood Pressure 94/58 96/59 100/62 O2 Sat by Pulse 95 95 95 Oximetry 11/29/20 11/29/20 11/29/20 12:45 13:00 13:15 Temperature Pulse Rate 59 L 64 61 Pulse Rate [ From Monitor] Respiratory 28 H 30 H 22 Rate Blood Pressure 99/58 99/58 105/62 O2 Sat by Pulse 95 96 93 Oximetry 11/29/20 11/29/20 11/29/20 13:30 13:45 14:00 Temperature Pulse Rate 61 58 L 56 L Pulse Rate [ From Monitor] Respiratory 18 22 26 H Rate Blood Pressure 101/63 97/60 97/61 O2 Sat by Pulse 92 89 90 Oximetry 11/29/20 11/29/20 11/29/20 14:15 14:30 14:45 Temperature Pulse Rate 59 L 58 L 62 Pulse Rate [ From Monitor] Respiratory 25 H 20 23 Rate Blood Pressure 105/60 105/61 103/60 O2 Sat by Pulse 92 93 95 Oximetry 11/29/20 15:00 Temperature Pulse Rate 61 Pulse Rate [ From Monitor] Respiratory 26 H Rate Blood Pressure 96/65 O2 Sat by Pulse 95 Oximetry - General physical appearance Narrative Exam: Gen.: Intubated, sedated. ENT: ET tube and OG tube in place. Trachea midline. There is crepitus and subcutaneous emphysema of the neck and right chest - stable. CV: S1, S2 present Respiratory: Bilateral chest tubes with minimal serosang drainage and no air leak. The dressings are c/d/i without bleeding Extremities: Generalized edema - Labs 11/28/20 03:45 11/29/20 13:28 Diabetes panel 11/29/20 Range/Units 13:28 Sodium 141 (137-145) mmol/L Potassium 4.6 (3.6-5.0) mmol/L Chloride 102.3 (98-107) mmol/L Carbon Dioxide 40 H (22-30) mmol/L BUN 32 H (9-20) mg/dL Creatinine 0.4 L (0.8-1.3) mg/dL Glucose 274 H (75-100) mg/dL Calcium 7.2 L (8.4-10.2) mg/dL AST 57 H (5-40) units/L ALT 102 H (7-56) units/L Alkaline Phosphatase 98 (35-129) units/L Total Protein 5.7 L (6.3-8.2) g/dL Albumin 2.1 L (3.9-5) g/dL Calcium panel 11/29/20 Range/Units 13:28 Calcium 7.2 L (8.4-10.2) mg/dL Albumin 2.1 L (3.9-5) g/dL Pituitary panel 11/29/20 Range/Units 13:28 Sodium 141 (137-145) mmol/L Potassium 4.6 (3.6-5.0) mmol/L Chloride 102.3 (98-107) mmol/L Carbon Dioxide 40 H (22-30) mmol/L BUN 32 H (9-20) mg/dL Creatinine 0.4 L (0.8-1.3) mg/dL Glucose 274 H (75-100) mg/dL Calcium 7.2 L (8.4-10.2) mg/dL Adrenal panel 11/29/20 Range/Units 13:28 Sodium 141 (137-145) mmol/L Potassium 4.6 (3.6-5.0) mmol/L Chloride 102.3 (98-107) mmol/L Carbon Dioxide 40 H (22-30) mmol/L BUN 32 H (9-20) mg/dL Creatinine 0.4 L (0.8-1.3) mg/dL Glucose 274 H (75-100) mg/dL Calcium 7.2 L (8.4-10.2) mg/dL Total Bilirubin 0.60 (0.1-1.2) mg/dL AST 57 H (5-40) units/L ALT 102 H (7-56) units/L Alkaline Phosphatase 98 (35-129) units/L Total Protein 5.7 L (6.3-8.2) g/dL Albumin 2.1 L (3.9-5) g/dL
[2020-11-29] MEDS: VANCOMYCIN 1,250 MG in SODIUM CHLORIDE 0.9% 250ML 250 ML IV SCH (17:43)
[2020-11-29] MEDS ORDERED: INSULIN GLARGINE 100 UNITS/ML SUB-Q SCH (22:00)
[2020-11-30] MEDS: fentaNYL DRIP Premix 2,000 MCG/100 ML BAG IV SCH ×4 (01:15→23:22)
[2020-11-30] MEDS: methylPREDNISolone Sod Succinate 125 MG/2 ML INJ IV SCH ×5 (04:24→23:39)
[2020-11-30] MEDS: INSULIN LISPRO 100 UNIT/ML SUB-Q SCH ×4 (05:27→23:53)
[2020-11-30] MEDS: VANCOMYCIN 1,250 MG in SODIUM CHLORIDE 0.9% 250ML 250 ML IV SCH (05:32)
[2020-11-30 06:33] LABS: Hematocrit 36.7 % (35.5-45.6); Hemoglobin 12.1 gm/dl (11.8-15.2); Mean Corpuscular HGB Conc 33 % (32-34); Mean Corpuscular Volume 91 fl (84-94); Platelet Count 182 K/mm3 (140-440); Red Blood Count 4.06 M/mm3 (3.65-5.03); Red Cell Distribution Width 13.7 % (13.2-15.2)
[2020-11-30 06:58] LABS: Alanine Aminotransferase 89 units/L (7-56); Albumin 2.3 g/dL (3.9-5); Blood Urea Nitrogen 34 mg/dL (9-20); Calcium 7.6 mg/dL (8.4-10.2); Hemolysis Index 10
[2020-11-30 06:59] LABS: BUN/Creatinine Ratio 85
[2020-11-30] MEDS: VANCOMYCIN/NS 1 GM/250 ML 1 GM/250 ML BAG IV SCH (07:26)
[2020-11-30] MEDS: INSULIN GLARGINE 100 UNITS/ML SUB-Q SCH ×2 (10:55→21:54)
--- NOTE | 2020-11-30 11:56 | Progress Note ---
Assessment and Plan Assessment and plan: 59-year-old female presents with shortness of breath cough fever weakness. "1 to 2 days. Patient has severe hypoxia per EMS. Her saturations are in the low 80s. With all oxygen and nonrebreather came down to low 90s. Patient denies any past medical history. Exposure to coronavirus present. Does not have a primary care physician. 2/1: Patient continues on BiPAP throughout the night. Labs are remarkable for hypoxia with improving renal function but lactic acidosis without fever. CTA has been ordered to rule out pulmonary embolism. I agree with increasing enoxaparin to twice daily full dose for empiric treatment of pulmonary embolism. Will obtain ID consultation on further evaluation for possible underlying pneumonia versus COVID-19. We will also obtain echocardiogram for evaluation. Will discontinue fluids at this time. 2/2; Continue supportive care, Patient remains with very guarded prognosis, remains on BiPAP, continues on Remdesivir, and steroids. Will continue antico agulation, unable to get CTA Chest due to patients unstable clinical status. Will adjust insulin for better blood glucose 2/3: Continues on BIPAP, no clear improvement at this time. Will continue richelle roids therapy Remdesivir and also Full anticoagulation at this time. Will update family. Discussed with Safe Deposit Clerk. 2/4: Taking a break from the BiPAP on high flow and nonrebreather 100% with saturation of 90% becomes hypoxic with any movement. Safe Deposit Clerk input noted will get a dose of Lasix today. Will await a discussion with ID for possibly increasing steroid. I updated Patient's Cousin, Tayla Esquivel who is the emergency field contact technician. Blood sugar remains fluctuating secondary to steriods, Encouraged Prone positioning. Noted with mild hyponatremia we will continue to monitor and manage 2/5: Continue supportive care wean oxygen as tolerated prognosis remains guarded. Encouraged to progress as tolerated. Awaiting labs today. Discussed with nursing staff and patient at bedside. 2/6: Discontinued Dexamethasone as Solumedrol started secondary to increased oxygen demand. Will give additional insulin for better control. Continue oxygen support patient still on high flow. Prognosis still guarded 2/7: Patient was intubated and placed on mechanical ventilation. Continue current medication. Will check a.m. labs today. Noted still with hypotension. Doubt septic shock at this time as patient has no new fever. Will adjust insulin for better blood sugar control. 11/23: Patient admitted with COVID-19 despite all efforts patient remains severely hypoxic and now is intubated. Safe Deposit Clerk input noted. Blood pressure marginal at this time. Very poor prognosis. Continue Solu-Medrol. 11/24. Patient remains very hypoxic. Blood pressure borderline. Plan for initiation of paralytic agents as per facility assistant. Patient may need to be transferred if no improvement. 11/26. Off paralytics. Remains intubated. On steroids. Prognosis is poor. 11/27. Chest xray shows pneumomediastinum and subcutaneous emphysema. Surgery consulted. Plan for chest tube placement. Sputum culture grew MRSA. Patient started on vancomycin per ID. 11/28. Right chest tube placed yesterday by surgery. Repeat chest x-ray showed left small pneumothorax. Plan for chest tube placement on the left today. Remains on paralytic agents. 11/29. Remains intubated on vent. Had left chest tube placed yesterday. Vitals reviewed. Critical care following 11/30/ Remains on mechanical ventilation. Worsening hypoxia. Bilateral chest tubes in place. Vitals reviewed. Labs reviewed Problems --Acute respiratory failure with hypoxia 11/17 COVID 19 pneumonia Patient remains fully dependent on mechanical ventilatory support Safe Deposit Clerk on board On solumedrol 60 q 6 ID on board Prognosis is poor --Pneumomediastinum, subcutaneous emphysema, small left-sided pneumothorax Right and Left chest tube in place Surgery following --Diabetes Mellitus Continue to adjust Insulin dosage Monitor blood glucose closely --- Covid pneumonia Management as above ---MRSA pneumonia Vancomycin ID on board The high probability of a clinically significant, sudden or life threatening deterioration of the [pulmonary] system(s) required my full and direct attention, intervention and personal management. The aggregate critical care time was [35] minutes. This time is in addition to time spent performing reported procedures but includes the following: [X] Data Review and interpretation [X] Patient assessment and monitoring of vital signs [X] Documentation [X] Medication orders and management History Interval history: Remains fully dependent on ventilator Bilateral chest tubes in place. Hospitalist Physical - Physical exam Narrative exam: VITAL SIGNS: Reviewed. GENERAL: Sedated and intubated HEAD: No signs of head trauma. EYES: Pupils are equal. NECK: No adenopathy, no JVD. CHEST: Diminished breath sound bilaterally. Subcutaneous emphysema. R & L chest tubes in place CARDIAC: normal S1 and S2, without murmurs, gallops, or rubs. ABDOMEN: Soft, non tender and non distended. No rebound or guarding, and no masses palpated. Bowel Sounds normal. MUSCULOSKELETAL: No edema NEUROLOGIC EXAM: Sedated SKIN: No obvious lesions - Constitutional Vitals: Temp Pulse Resp BP Pulse Ox 98.7 F 77 19 131/70 90 11/30/20 08:00 11/30/20 11:00 11/30/20 11:00 11/30/20 11:00 11/30/20 11:00 HEART Score - HEART Score Troponin: Troponin T < 0.010 ng/mL (0.00-0.029) 11/22/20 Unknown Results - Labs CBC & Chem 7: 11/30/20 03:30 11/30/20 03:30 Labs: Laboratory Last Values WBC 10.2 K/mm3 (4.5-11.0) 11/30/20 03:30 RBC 4.06 M/mm3 (3.65-5.03) 11/30/20 03:30 Hgb 12.1 gm/dl (11.8-15.2) 11/30/20 03:30 Hct 36.7 % (35.5-45.6) 11/30/20 03:30 MCV 91 fl (84-94) 11/30/20 03:30 MCH 30 pg (28-32) 11/30/20 03:30 MCHC 33 % (32-34) 11/30/20 03:30 RDW 13.7 % (13.2-15.2) 11/30/20 03:30 Plt Count 182 K/mm3 (140-440) 11/30/20 03:30 Lymph % (Auto) 2.0 % (13.4-35.0) L 11/27/20 06:25 [place] % (Auto) 5.2 % (0.0-7.3) 11/27/20 06:25 Eos % (Auto) 0.0 % (0.0-4.3) 11/27/20 06:25 Baso % (Auto) 0.1 % (0.0-1.8) 11/27/20 06:25 Lymph # (Auto) 0.3 K/mm3 (1.2-5.4) L 11/27/20 06:25 [place] # (Auto) 0.7 K/mm3 (0.0-0.8) 11/27/20 06:25 Eos # (Auto) 0.0 K/mm3 (0.0-0.4) 11/27/20 06:25 Baso # (Auto) 0.0 K/mm3 (0.0-0.1) 11/27/20 06:25 Add Manual Diff Complete 11/28/20 03:45 Total Counted 100 11/28/20 03:45 Seg Neutrophils % Associate Professor Of [employer] Studies 11/30/20 03:30 Seg Neuts % (Manual) 93.0 % (40.0-70.0) H 11/28/20 03:45 Lymphocytes % (Manual) 2.0 % (13.4-35.0) L 11/28/20 03:45 Monocytes % (Manual) 5.0 % (0.0-7.3) 11/28/20 03:45 Nucleated RBC % Not Reportable 11/28/20 03:45 Seg Neutrophils # 12.7 K/mm3 (1.8-7.7) H 11/27/20 06:25 Seg Neutrophils # Man 11.3 K/mm3 (1.8-7.7) H 11/28/20 03:45 Band Neutrophils # 0.0 K/mm3 11/28/20 03:45 Lymphocytes # (Manual) 0.2 K/mm3 (1.2-5.4) L 11/28/20 03:45 Abs React Lymphs (Man) 0.0 K/mm3 11/28/20 03:45 Monocytes # (Manual) 0.6 K/mm3 (0.0-0.8) 11/28/20 03:45 Eosinophils # (Manual) 0.0 K/mm3 (0.0-0.4) 11/28/20 03:45 Basophils # (Manual) 0.0 K/mm3 (0.0-0.1) 11/28/20 03:45 Metamyelocytes # 0.0 K/mm3 11/28/20 03:45 Myelocytes # 0.0 K/mm3 11/28/20 03:45 Promyelocytes # 0.0 K/mm3 11/28/20 03:45 Blast Cells # 0.0 K/mm3 11/28/20 03:45 WBC Morphology Not Reportable 11/28/20 03:45 Hypersegmented Neuts Not Reportable 11/28/20 03:45 Hyposegmented Neuts Not Reportable 11/28/20 03:45 Hypogranular Neuts Not Reportable 11/28/20 03:45 Smudge Cells Not Reportable 11/28/20 03:45 Toxic Granulation Not Reportable 11/28/20 03:45 Toxic Vacuolation Not Reportable 11/28/20 03:45 Dohle Bodies Not Reportable 11/28/20 03:45 Pelger-Huet Anomaly Not Reportable 11/28/20 03:45 Tony Rods Not Reportable 11/28/20 03:45 Platelet Estimate Consistent w auto 11/28/20 03:45 Clumped Platelets Not Reportable 11/28/20 03:45 Plt Clumps, EDTA Not Reportable 11/28/20 03:45 Large Platelets Not Reportable 11/28/20 03:45 Giant Platelets Not Reportable 11/28/20 03:45 Platelet Satelliting Not Reportable 11/28/20 03:45 Plt Morphology Comment Not Reportable 11/28/20 03:45 RBC Morphology Not Reportable 11/28/20 03:45 Dimorphic RBCs Not Reportable 11/28/20 03:45 Polychromasia Not Reportable 11/28/20 03:45 Hypochromasia Not Reportable 11/28/20 03:45 Poikilocytosis Not Reportable 11/28/20 03:45 Anisocytosis Not Reportable 11/28/20 03:45 Microcytosis Not Reportable 11/28/20 03:45 Macrocytosis Not Reportable 11/28/20 03:45 Spherocytes Not Reportable 11/28/20 03:45 Pappenheimer Bodies Not Reportable 11/28/20 03:45 Sickle Cells Not Reportable 11/28/20 03:45 Target Cells Not Reportable 11/28/20 03:45 Tear Drop Cells Not Reportable 11/28/20 03:45 Ovalocytes Not Reportable 11/28/20 03:45 Helmet Cells Not Reportable 11/28/20 03:[address] [place] Bodies Not Reportable 11/28/20 03:45 Moore Rings Not Reportable 11/28/20 03:45 Henrry Cells Not Reportable 11/28/20 03:45 Bite Cells Not Reportable 11/28/20 03:45 Crenated Cell Not Reportable 11/28/20 03:45 Elliptocytes Not Reportable 11/28/20 03:45 Acanthocytes (Spur) Not Reportable 11/28/20 03:45 Rouleaux Not Reportable 11/28/20 03:45 Hemoglobin C Crystals Not Reportable 11/28/20 03:45 Schistocytes Not Reportable 11/28/20 03:45 Malaria parasites Not Reportable 11/28/20 03:45 Yovani Bodies Not Reportable 11/28/20 03:45 Hem Pathologist Commnt No 11/28/20 03:45 D-Dimer 926.11 ng/mlDDU (0-234) H 11/26/20 06:04 ABG pH 7.405 (7.320-7.450) 11/30/20 03:57 POC ABG pCO2 60.8 mmHg (32.0-48.0) H 11/30/20 03:57 POC ABG pO2 51.1 mmHg (83-108) L 11/30/20 03:57 POC ABG HCO3 37.2 11/30/20 03:57 POC ABG Base Excess 10.4 11/30/20 03:57 ABG Hemoglobin 12.4 (12.0-17.5) 11/30/20 03:57 ABG Oxyhemoglobin 84.6 (94-98) L 11/30/20 03:57 ABG Methemoglobin 0.3 (0.0-1.5) 11/30/20 03:57 ABG Sodium 137.5 mmol/L (136.0-145.0) 11/30/20 03:57 ABG Potassium 4.5 mmol/L (3.40-4.50) 11/30/20 03:57 ABG Chloride 101.0 mmol/L (98-107) 11/30/20 03:57 ABG Glucose 315 mg/dL (65-95) H 11/30/20 03:57 Carboxyhemoglobin 1.0 (0.5-1.5) 11/30/20 03:57 FiO2 80 11/30/20 03:57 Sodium 141 mmol/L (137-145) 11/30/20 03:30 Potassium 4.6 mmol/L (3.6-5.0) 11/30/20 03:30 Chloride 100.3 mmol/L (98-107) 11/30/20 03:30 Carbon Dioxide 38 mmol/L (22-30) H 11/30/20 03:30 Anion Gap 7 mmol/L 11/30/20 03:30 BUN 34 mg/dL (9-20) H 11/30/20 03:30 Creatinine 0.4 mg/dL (0.8-1.3) L 11/30/20 03:30 Estimated GFR > 60 ml/min 11/30/20 03:30 BUN/Creatinine Ratio 85 % 11/30/20 03:30 Glucose 305 mg/dL (75-100) H 11/30/20 03:30 POC Glucose 295 mg/dL (70-105) H 11/30/20 05:22 Hemoglobin A1c 11.7 % (4-6) H 11/16/20 05:29 Lactic Acid 2.60 mmol/L (0.7-2.0) H* 11/16/20 05:29 Calcium 7.6 mg/dL (8.4-10.2) L 11/30/20 03:30 Ferritin 778.8 ng/mL (30.0-300.0) H 11/26/20 04:00 Total Bilirubin 0.40 mg/dL (0.1-1.2) 11/30/20 03:30 AST 39 units/L (5-40) 11/30/20 03:30 ALT 89 units/L (7-56) H 11/30/20 03:30 Alkaline Phosphatase 109 units/L (35-129) 11/30/20 03:30 Lactate Dehydrogenase 288 units/L (91-180) H 11/26/20 04:00 Troponin T < 0.010 ng/mL (0.00-0.029) 11/22/20 Unknown C-Reactive Protein 1.40 mg/dL (0.00-1.30) H 11/26/20 04:00 NT-Pro-B Natriuret Pep 107.2 pg/mL (0-900) 11/17/20 10:21 Total Protein 6.0 g/dL (6.3-8.2) L 11/30/20 03:30 Albumin 2.3 g/dL (3.9-5) L 11/30/20 03:30 Albumin/Globulin Ratio 0.6 % 11/30/20 03:30 Procalcitonin 0.51 ng/mL (<0.15) 11/15/20 10:39 Arterial Blood Glucose 315 mg/dL (65-95) H 11/30/20 03:57 Arterial Blood Ionized Calcium 4.5 mg/dL (4.6-5.3) L 11/30/20 03:57 Urine Color Faustina (Yellow) 11/16/20 01:45 Urine Turbidity Slightly-cloudy (Clear) 11/16/20 01:45 Urine pH 6.0 (5.0-7.0) 11/16/20 01:45 Ur Specific Phenix 1.037 (1.003-1.030) H 11/16/20 01:45 Urine Protein 30 mg/dl mg/dL (Negative) 11/16/20 01:45 Urine Glucose (UA) >=500 mg/dL (Negative) 11/16/20 01:45 Urine Ketones 20 mg/dL (Negative) 11/16/20 01:45 Urine Blood Neg (Negative) 11/16/20 01:45 Urine Nitrite Neg (Negative) 11/16/20 01:45 Urine Bilirubin Neg (Negative) 11/16/20 01:45 Urine Urobilinogen 2.0 mg/dL (<2.0) 11/16/20 01:45 Ur Leukocyte Esterase Neg (Negative) 11/16/20 01:45 Urine WBC (Auto) 2.0 /HPF (0.0-6.0) 11/16/20 01:45 Urine RBC (Auto) 1.0 /HPF (0.0-6.0) 11/16/20 01:45 Urine Bacteria (Auto) 1+ /HPF (Negative) 11/16/20 01:45 Urine Mucus 3+ /HPF 11/16/20 01:45 Vancomycin Trough 4.0 ug/mL (5.0-20.0) L 11/29/20 15:40 Coronavirus (PCR) Positive (Negative) A 11/16/20 Unknown - Diagnostic Impressions Diagnostic Impressions: Echocardiogram 11/16/20 10:34 Transthoracic Echocardiogram Indication: Shortness of breath-COVID BP: 108/77 HR: 92 Conclusions *Global left ventricular systolic function is normal. *The estimated ejection fraction is 60-65%. *Mild to moderate concentric left ventricular hypertrophy is observed. *There is trace of mitral regurgitation. *There is mild to moderate tricuspid regurgitation. *There is evidence of mild pulmonary hypertension. *The right ventricular systolic pressure is calculated at 31 mmHg. Findings Left Ventricle: The left ventricular chamber size is normal. Mild to moderate concentric left ventricular hypertrophy is observed. Global left ventricular systolic function is normal. The estimated ejection fraction is 60-65%. Left Atrium: The left atrial chamber size is normal. Right Ventricle: The right ventricular cavity size is normal. The right ventricular global systolic function is normal. Right Atrium: The right atrial cavity size is normal. Aortic Valve: The aortic valve is trileaflet. There is no evidence of aortic regurgitation. There is no evidence of aortic stenosis. Mitral Valve: The mitral valve leaflets appear normal. There is trace of mitral regurgitation. There is no evidence of mitral stenosis. Tricuspid Valve: The tricuspid valve leaflets are normal. There is mild to moderate tricuspid regurgitation. The right ventricular systolic pressure is calculated at 31 mmHg. There is evidence of mild pulmonary hypertension. Pulmonic Valve: There is trace pulmonic regurgitation. Pericardium: There is no pericardial effusion. Aorta: There is no dilatation of the ascending aorta. There is no dilatation of the aortic root. Venous: The inferior vena cava appears normal in size. Measurements Chambers 2D Name Value Normal Range IVSd (2D) 0.81 cm (0.6 - 1.1) LVPWd (2D) 0.79 cm (0.6 - 1.1) LVIDd (2D) 4.22 cm (3.7 - 5.6) LVIDs (2D) 3.1 cm (2 - 3.8) LV FS (2D) 26.71 % - EF Teichholz (2D) 52.55 % - Ao root diameter (2D) 3.34 cm (2 - 3.7) Volumes/Mass Name Value Normal Range LA ESV SP 4CH (A/L) 10.87 ml - LA ESV SP 2CH (A/L) 18.74 ml - LA ESV BP (A/L) 16.38 ml - LA ESV BP (A/L) index 8.62 ml/m2 - LA ESV SP 4CH (MOD) 10.32 ml - LA ESV SP 2CH (MOD) 17.66 ml - LA ESV BP (MOD) 15.12 ml - LA ESV BP (MOD) index 7.96 ml/m2 - Diastolic/Systolic Function Name Value Normal Range MV E-wave Vmax 0.76 m/sec - MV deceleration time 133.63 msec - MV A-wave Vmax 1.1 m/sec - MV E:A ratio 0.69 ratio - Aortic Valve Name Value Normal Range AV Vmax 1.44 m/sec - AV VTI 22.94 cm - AV peak gradient 8.33 mmHg - AV mean gradient 4.73 mmHg - LVOT diameter 2.2 cm - LVOT Vmax 1.04 m/sec - LVOT VTI 18.88 cm - LVOT peak gradient 4.34 mmHg - LVOT mean gradient 2.31 mmHg - SV LVOT 72.05 ml - EVANGELISTA (continuity Vmax) 2.75 cm2 - EVANGELISTA (continuity VTI) 3.14 cm2 - Tricuspid Valve Name Value Normal Range TR Vmax 2.64 m/sec - TR peak gradient 28 mmHg - RAP 3 mmHg - RVSP 31 mmHg - Gupta/IV: Voiding Method Indwelling Catheter IV Catheter Type [Left Peripheral IV Antecubital] Active Medications - Current Medications Current Medications: Generic Name Dose Route Start Last Admin Trade Name Freq PRN Reason Stop Dose Admin Acetaminophen 650 mg 11/15/20 23:55 11/18/20 22:19 Acetaminophen 325 Mg Tab PO 650 mg Q4H PRN Administration Pain MILD(1-3)/Fever >100.5/BUTTS Lipase/Protease/Amylase 1 each 11/23/20 11:53 Lipase 10,500/Protease 25,000/Amylase 43,750 (Units) Dr Slater FEEDTUBE PRN PRN For Clogged Feeding Tube Enoxaparin Sodium 80 mg 11/16/20 10:00 11/29/20 21:32 Enoxaparin 80 Mg/0.8 Ml Inj SUB-Q 80 mg Q12HR RAEANN Administration Famotidine 20 mg 11/22/20 22:00 11/29/20 21:35 Famotidine 20 Mg/2 Ml Inj IV 20 mg BID RAEANN Administration Fentanyl 50 mcg 11/21/20 21:53 Fentanyl 100 Mcg/2 Ml Inj IV Q10MIN PRN ANALGESIA Hydrophilic Ointment 1 applic 11/21/20 21:53 Lip Therapy Vaseline TP Q2HR PRN Dry Lips Fentanyl Citrate 2,000 mcg in 100 mls @ 3.625 mls/hr 11/21/20 22:00 11/30/20 07:34 Fentanyl Drip Premix IV 4 mcg/kg/hr TITR RAEANN 14.5 mls/hr Administration Protocol 1 MCG/KG/HR Midazolam HCl 100 mg/ Sodium 100 mls @ 2 mls/hr 11/21/20 22:00 11/29/20 18:20 Chloride IV 5 mg/hr TITR RAEANN 5 mls/hr Administration Protocol 2 MG/HR Norepinephrine 4 mg in 250 mls @ 7.5 mls/hr 11/22/20 17:00 Levophed Drip 4 Mg/Ns 250 Ml IV TITR RAEANN Protocol 2 MCG/MIN Propofol 1,000 mg in 100 mls @ 2.175 mls/hr 11/27/20 12:00 11/30/20 04:30 Diprivan 10 Mg/Ml IV 20 mcg/kg/min TITR RAEANN 8.7 mls/hr Administration Protocol 5 MCG/KG/MIN Vancomycin HCl 1,500 mg/ 530 mls @ 333.333 mls/hr 11/30/20 17:00 Sodium Chloride IV Q12H [facility] Insulin Glargine 14 units 11/30/20 09:00 11/30/20 10:55 Insulin Glargine 100 Units/Ml SUB-Q 14 units 0800,2200 [facility] Administration Insulin Human Lispro 0 unit 11/22/20 06:00 11/30/20 05:27 Insulin Lispro 100 Unit/Ml SUB-Q 6 unit Q6HR [facility] Administration Protocol Methylprednisolone Sodium Succinate 60 mg 11/20/20 12:00 11/30/20 05:38 Methylprednisolone Sod Succinate 125 Mg/2 Ml Inj IV Not Given Q6HR [facility] Metoclopramide HCl 10 mg 11/15/20 23:55 Metoclopramide 10 Mg/2 Ml Inj IV Q6H PRN Nausea And Vomiting Midazolam HCl 2 mg 11/21/20 21:53 Midazolam 2 Mg/2 Ml Inj IV Q10MIN PRN Sedation Multi-Ingred Cream/Lotion/Oil/Oint 1 applic 11/21/20 21:53 Mineral Oil/Petrolatum, White Ophth Oint 3.5 Gm OU Q4HR PRN Dry Eye(s) Ondansetron HCl 4 mg 11/15/20 23:55 Ondansetron 4 Mg/2 Ml Inj IV Q8H PRN Nausea And Vomiting Simple Syrup 15 ml 11/23/20 11:53 Simple Syrup 15 Ml FEEDTUBE PRN PRN Hypoglycemia Simple Syrup 30 ml 11/23/20 11:53 Simple Syrup 15 Ml FEEDTUBE PRN PRN Hypoglycemia Sodium Bicarbonate 325 mg 11/23/20 11:53 Sodium Bicarbonate 325 Mg Tab FEEDTUBE PRN PRN For Clogged Feeding Tube Sodium Chloride 10 ml 11/16/20 10:00 11/30/20 09:24 Sodium Chloride 0.9% 10 Ml Flush Syringe IV 10 ml BID RAEANN Administration Sodium Chloride 10 ml 11/15/20 23:55 Sodium Chloride 0.9% 10 Ml Flush Syringe IV PRN PRN LINE FLUSH Nutrition/Malnutrition Assess - Dietary Evaluation Nutrition/Malnutrition Findings: Nutrition Notes Start: 11/20/20 12:03 Freq: Status: Active Protocol: Document 11/26/20 10:59 KIT (Rec: 11/26/20 11:25 KIT [id number]) Co-Sign 11/26/20 10:59 NHALL Nutrition Notes Initial or Follow up Reassessment Current Diagnosis Diabetes,Sepsis,Respiratory Failure Other Pertinent Diagnosis Bilat pneu, COVID-19 (+) Current Diet Glucerna 1.2 at 100 ml/hr when not proned, 20 ml when proned Labs/Tests BUN 51 Cr 3.4 BG 189 Pertinent Medications Levophed Height 5 ft 6 in Weight 72.5 kg Usual Body Weight 80.5 kg [place] Body Weight (kg) 64.54 BMI 25.7 Weight Status Overweight Subjective/Other Information F/u TF tolerance. Pt coded blue this AM and TF on hold for now. Percent of energy/protein needs met: 0%/0% Burn Absent Trauma Absent GI Symptoms None Difficulty In Swallowing,Chewing Current % PO Negligible Minimum of two criteria Yes Energy Intake (severe) < or equal to 50% Estimated Energy Requirement > or equal to 5 days Interpretation of Weight Loss (severe) >2% in 1 week #3 Nutrition Diagnosis Inadequate oral intake Diagnosis Progress(for reassessment Continues documentation) #2 Nutrition Diagnosis Malnutrition Diagnosis Progress(for reassessment Continues documentation) #1 Nutrition Diagnosis Unintended weight loss Diagnosis Progress(for reassessment Continues documentation) Is patient on ventilator? Yes Is Patient Ambulatory and/or Out of Bed No REE-([facility] Panfilonj-confined to bed) [phone] Calculation Used for Recommendations [facility] Additional Notes Protein needs 1.2-2g/k-145g/day Fluid 1ml/kcal or per MD Nutrition Intervention Change Diet Order: Continue TF if medically able Nutrition Support: Supine (12h): Glucerna 1.2 at 100ml/hr with flush of 100 ml q4h. Prone (12h): Glucerna 1.2 at 20 ml/hr with flush of 50 ml q4h. Kcal 1,728 Protein (gm) 86 Fluid (mL) 1,159 Goal #1 TF tolerance Goal #2 Meet at least 75% of energy and protein needs via TF Anticipated Discharge Needs: Unknown at this time Follow-Up By: 12/01/20 Additional Comments F/u TF re-start, vent status, and proning regimen
[2020-11-30] MEDS: ENOXAPARIN 80 MG/0.8 ML INJ SUB-Q SCH ×2 (12:18→21:56)
[2020-11-30] MEDS: FAMOTIDINE 20 MG/2 ML INJ IV SCH ×2 (12:18→21:32)
[2020-11-30 12:38] LABS: Total Cells Counted 100
[2020-11-30 12:39] LABS: Platelet Estimate Consistent w Auto; RBC Morphology Normal
--- NOTE | 2020-11-30 12:45 | Progress Note ---
Assessment and Plan 59 y/o male with acute respiratory failure, abnormal CXR and abnormal lab studies. 11/30/20: Worsening hypoxemia. Chest tubes stable. Likely just worsening disease. Unable to prone now. Increase PEEP to 18 and FiO2 back up to 100. C ontinue 3 sedatives for RASS of -2. Obtain 12 lead to look at T waves as K was only 4.6 on yesterday. Guarded, guarded prognosis 11/29/20: Second chest tube in on yesterday. CXR is stable. ABG unchanged. Will likely increase PEEP now that chest tubes are in. No further paralytics. Still making good urine. Prognosis remains guarded. Will check chemistry to assess Potassium levels given peaked t's seen on monitor. 11/28/20: Second chest tube today. Once chest tube in, will likely increase PEEP to 18 and repeat gas about 2 hours after this. Continue paralytic today. No proning now that patient will have bilateral chest tubes. VEry guarded prognosis. 11/27/20: Spoke with surgery who have agreed to evaluate and placed chest tube on either right or left side pending CXR reading. Will monitor for 36-48 hours and if no resolution, will need chest tube placed on opposite side as well. Once placed, will likely paralyze again but hold on proning for now. Guarded prognosis. 11/26/20: Paralytics are off. Continue current level of sedation. Will prone for 12 hours today and repeat ABG in the am. Continue lung protective strategy. Guarded prognosis. 11/25/20: Prone again to 16 hours, will prone at 12-12:30. Continue paralytics for 24 more hours. Discussed the idea of permissive hypercapnea again today and as long as pH is above 7.2 no changes should be made to TV and or RR without discussing with physician. Continue to monitor urine output, guarded prognosis. Hold on lasix therapy today. 11/24/20: Prone again today. Will try 48 hours of paralyzing the patient to see if this will help with oxygenation. Will speak with RT's about permissive hypercapnea and that pH's of 7.2 and greater are ok. Continue high doses steroids. Prognosis is still very very guarded. If not improvement with paralytics, will attempt transfer. 11/23/20: Prone again today for 12 hours. Continue High Dose steroids. Hold on lasix given marginal BP's. Prognosis is very very guarded to poor. Will continue all supportive measures. If not able to wean from 100%, will attempt transfer for ECMO. 11/20/20: WIll change to solumedrol 60q6 today. Hold on lasix today. Given his increasing oxygen requirement, will likely end up intubated. OVerall prognosis is very poor. 11/19/20: lasix 40mg IV x1 today. Will speak with ID but may consider increasing steroids to see if this will help with oxygenation. Continue Remdesivir. Prognosis remains guarded. 11/18/20: Continue bipap, goal is to attempt to prevent prolong intubation for as long as possible. Lasix again today. Steroids and Remdesivir. Guarded Prognosis. 11/17/20: Continue bipap therapy. Monitor mental state. High risk for Intubation. Continue BID anticoagulation. Prone if able. BNP was elevated but not grossly elevated. Will still give lasix with hopes of achieving net negative state. STeroids and remdesivir. Overall prognosis is guarded, extremely guarded. 1. Pulm- Agree with concern for covid. Agree with empiric abx but procal is only mildly elevated. Await cultures. Continue bipap therapy for now but will need to monitor closely. [facility] has ordered CTA, but I spoke with pharmacy and we will empirically treat with BID lovenox therapy. COntinue empiric steroid therapy for COVID until studies back. Not sure that he will be able to prone on bipap therapy. Monitor volume status and run as dry as possible. 2. Renal-normal function but all electrolytes abnormal. HYponatremia and Hypochloremia volume up vs volume down. Sent BNP. Would suggest obtaning echo as well. Not sure what to make of elevated lactate unless that is from increased work of breathing or damage to other tissue unknown. May need to check LFT's and Coags as well. 3. Guarded Prognosis. CCT 31 minutes. Subjective Date of service: 11/30/20 Principal diagnosis: COVID-19 Interval history: Starting desatting this am. Increased oxygen to 100 and PEEP to 18. Will obtain ABG in 1 hour. Objective Vital Signs - 12hr 11/30/20 11/30/20 11/30/20 00:45 01:00 01:05 Temperature Pulse Rate 59 L 63 63 Pulse Rate [ 63 From Monitor] Respiratory 30 H 26 H 28 H Rate Blood Pressure 107/60 112/65 O2 Sat by Pulse 93 92 94 Oximetry 11/30/20 11/30/20 11/30/20 01:15 01:30 01:45 Temperature Pulse Rate 69 64 73 Pulse Rate [ From Monitor] Respiratory 33 H 22 18 Rate Blood Pressure 124/66 112/66 119/71 O2 Sat by Pulse 93 90 91 Oximetry 11/30/20 11/30/20 11/30/20 02:00 02:05 02:15 Temperature Pulse Rate 65 67 66 Pulse Rate [ 63 From Monitor] Respiratory 30 H 26 H 26 H Rate Blood Pressure 109/65 113/58 O2 Sat by Pulse 89 94 91 Oximetry 11/30/20 11/30/20 11/30/20 02:30 02:45 03:00 Temperature Pulse Rate 69 67 67 Pulse Rate [ From Monitor] Respiratory 30 H 26 H 24 Rate Blood Pressure 111/64 109/64 101/58 O2 Sat by Pulse 92 91 91 Oximetry 11/30/20 11/30/20 11/30/20 03:05 03:15 03:30 Temperature 98.4 F Pulse Rate 67 61 62 Pulse Rate [ 63 From Monitor] Respiratory 26 H 30 H 29 H Rate Blood Pressure 98/61 108/59 O2 Sat by Pulse 94 93 90 Oximetry 11/30/20 11/30/20 11/30/20 03:45 03:55 04:00 Temperature Pulse Rate 62 61 61 Pulse Rate [ From Monitor] Respiratory 29 H 19 Rate Blood Pressure 104/62 104/62 103/61 O2 Sat by Pulse 92 92 93 Oximetry 11/30/20 11/30/20 11/30/20 04:16 04:30 04:45 Temperature Pulse Rate 62 73 69 Pulse Rate [ From Monitor] Respiratory 24 21 26 H Rate Blood Pressure 130/71 130/76 117/66 O2 Sat by Pulse 95 95 90 Oximetry 11/30/20 11/30/20 11/30/20 05:00 05:15 05:30 Temperature Pulse Rate 66 67 66 Pulse Rate [ From Monitor] Respiratory 30 H 22 26 H Rate Blood Pressure 120/64 121/58 121/64 O2 Sat by Pulse 90 90 91 Oximetry 11/30/20 11/30/20 11/30/20 05:45 06:00 06:15 Temperature Pulse Rate 64 69 63 Pulse Rate [ From Monitor] Respiratory 30 H 24 29 H Rate Blood Pressure 109/61 107/58 117/62 O2 Sat by Pulse 89 92 91 Oximetry 11/30/20 11/30/20 11/30/20 06:30 06:45 07:00 Temperature Pulse Rate 63 65 64 Pulse Rate [ From Monitor] Respiratory 26 H 15 20 Rate Blood Pressure 113/62 109/62 108/61 O2 Sat by Pulse 91 92 93 Oximetry 11/30/20 11/30/20 11/30/20 07:15 07:30 07:45 Temperature Pulse Rate 68 66 65 Pulse Rate [ From Monitor] Respiratory 18 17 17 Rate Blood Pressure 112/60 105/59 112/61 O2 Sat by Pulse 93 90 92 Oximetry 11/30/20 11/30/20 11/30/20 08:00 08:05 08:15 Temperature 98.7 F Pulse Rate 64 64 64 Pulse Rate [ 63 From Monitor] Respiratory 19 25 H Rate Blood Pressure 107/62 107/62 113/60 O2 Sat by Pulse 91 91 92 Oximetry 11/30/20 11/30/20 11/30/20 08:30 08:45 09:00 Temperature Pulse Rate 67 64 63 Pulse Rate [ From Monitor] Respiratory 15 20 19 Rate Blood Pressure 109/60 109/62 116/64 O2 Sat by Pulse 93 94 93 Oximetry 11/30/20 11/30/20 11/30/20 09:15 09:30 09:45 Temperature Pulse Rate 66 69 70 Pulse Rate [ From Monitor] Respiratory 14 15 26 H Rate Blood Pressure 117/60 111/60 116/60 O2 Sat by Pulse 93 92 91 Oximetry 11/30/20 11/30/20 11/30/20 10:00 10:15 10:30 Temperature Pulse Rate 70 71 72 Pulse Rate [ From Monitor] Respiratory 15 17 17 Rate Blood Pressure 109/58 117/59 104/62 O2 Sat by Pulse 90 91 90 Oximetry 11/30/20 11/30/20 11/30/20 10:46 11:00 11:15 Temperature Pulse Rate 75 77 80 Pulse Rate [ From Monitor] Respiratory 18 19 17 Rate Blood Pressure 113/68 131/70 123/68 O2 Sat by Pulse 93 90 90 Oximetry 11/30/20 11/30/20 11/30/20 11:30 11:45 12:00 Temperature Pulse Rate 85 95 H 115 H Pulse Rate [ 108 H From Monitor] Respiratory 20 22 25 H Rate Blood Pressure 142/59 152/65 151/83 O2 Sat by Pulse 89 86 86 Oximetry 11/30/20 12:15 Temperature Pulse Rate 114 H Pulse Rate [ From Monitor] Respiratory 23 Rate Blood Pressure 145/86 O2 Sat by Pulse 84 Oximetry Constitutional: alert ENT: other (Now intubated) Ascultation: Bilateral: rales, rhonchi Percussion: Bilateral: not dull Cardiovascular: regular rate and rhythm Gastrointestinal: soft, non-tender CBC and BMP: 11/30/20 03:30 11/30/20 03:30 ABG, PT/INR, D-dimer: ABG ABG pH 7.405 (7.320-7.450) 11/30/20 03:57 POC ABG pCO2 60.8 mmHg (32.0-48.0) H 11/30/20 03:57 POC ABG pO2 51.1 mmHg (83-108) L 11/30/20 03:57 POC ABG HCO3 37.2 11/30/20 03:57 PT/INR, D-dimer D-Dimer 926.11 ng/mlDDU (0-234) H 11/26/20 06:04 Abnormal lab findings: Abnormal Labs 11/15/20 11/15/20 11/15/20 10:39 10:39 10:39 WBC 14.3 H RBC 5.17 H Lymph % (Auto) 7.8 L [place] % (Auto) 7.6 H Lymph # (Auto) 1.1 L [place] # (Auto) 1.1 H Baso # (Auto) Seg Neutrophils % 83.3 H Seg Neuts % (Manual) Lymphocytes % (Manual) Seg Neutrophils # 11.9 H Seg Neutrophils # Man Lymphocytes # (Manual) D-Dimer ABG pH POC ABG pCO2 POC ABG pO2 ABG Oxyhemoglobin ABG Sodium ABG Potassium ABG Chloride ABG Glucose Sodium 128 L Chloride 96.0 L Carbon Dioxide BUN Creatinine 0.7 L Glucose 238 H POC Glucose Hemoglobin A1c Lactic Acid 4.10 H* Calcium 7.0 L Ferritin Total Bilirubin 1.40 H AST 49 H ALT 70 H Alkaline Phosphatase Lactate Dehydrogenase 663 H C-Reactive Protein 19.80 H Total Protein Albumin 2.9 L Arterial Blood Glucose Arterial Blood Ionized Calcium Ur Specific [place] Vancomycin Trough Coronavirus (PCR) 11/15/20 11/15/20 11/15/20 10:39 10:39 11:20 WBC RBC Lymph % (Auto) [place] % (Auto) Lymph # (Auto) [place] # (Auto) Baso # (Auto) Seg Neutrophils % Seg Neuts % (Manual) Lymphocytes % (Manual) Seg Neutrophils # Seg Neutrophils # Man Lymphocytes # (Manual) D-Dimer > 13021 H ABG pH POC ABG pCO2 29.9 L POC ABG pO2 137.3 H ABG Oxyhemoglobin ABG Sodium 126.5 L ABG Potassium ABG Chloride ABG Glucose 248 H Sodium Chloride Carbon Dioxide BUN Creatinine Glucose POC Glucose Hemoglobin A1c Lactic Acid Calcium Ferritin 672.8 H Total Bilirubin AST ALT Alkaline Phosphatase Lactate Dehydrogenase C-Reactive Protein Total Protein Albumin Arterial Blood Glucose 248 H Arterial Blood Ionized Calcium 4.1 L Ur Specific [place] Vancomycin Trough Coronavirus (PCR) 11/15/20 11/15/20 11/16/20 13:41 23:41 01:45 WBC RBC Lymph % (Auto) [place] % (Auto) Lymph # (Auto) [place] # (Auto) Baso # (Auto) Seg Neutrophils % Seg Neuts % (Manual) Lymphocytes % (Manual) Seg Neutrophils # Seg Neutrophils # Man Lymphocytes # (Manual) D-Dimer ABG pH POC ABG pCO2 POC ABG pO2 ABG Oxyhemoglobin ABG Sodium ABG Potassium ABG Chloride ABG Glucose Sodium Chloride Carbon Dioxide BUN Creatinine Glucose POC Glucose 284 H Hemoglobin A1c Lactic Acid 2.30 H* Calcium Ferritin Total Bilirubin AST ALT Alkaline Phosphatase Lactate Dehydrogenase C-Reactive Protein Total Protein Albumin Arterial Blood Glucose Arterial Blood Ionized Calcium Ur Specific [place] 1.037 H Vancomycin Trough Coronavirus (PCR) 11/16/20 11/16/20 11/16/20 05:29 05:29 05:29 WBC 12.9 H RBC Lymph % (Auto) 4.5 L [place] % (Auto) Lymph # (Auto) 0.6 L [place] # (Auto) Baso # (Auto) 0.2 H Seg Neutrophils % 89.8 H Seg Neuts % (Manual) Lymphocytes % (Manual) Seg Neutrophils # 11.5 H Seg Neutrophils # Man Lymphocytes # (Manual) D-Dimer ABG pH POC ABG pCO2 POC ABG pO2 ABG Oxyhemoglobin ABG Sodium ABG Potassium ABG Chloride ABG Glucose Sodium 131 L Chloride Carbon Dioxide 21 L BUN 23 H Creatinine 0.6 L Glucose 342 H POC Glucose Hemoglobin A1c Lactic Acid 2.60 H* Calcium 7.0 L Ferritin Total Bilirubin AST ALT Alkaline Phosphatase Lactate Dehydrogenase C-Reactive Protein Total Protein Albumin 2.4 L Arterial Blood Glucose Arterial Blood Ionized Calcium Ur Specific [place] Vancomycin Trough Coronavirus (PCR) 11/16/20 11/16/20 11/16/20 05:29 08:11 12:11 WBC RBC Lymph % (Auto) [place] % (Auto) Lymph # (Auto) [place] # (Auto) Baso # (Auto) Seg Neutrophils % Seg Neuts % (Manual) Lymphocytes % (Manual) Seg Neutrophils # Seg Neutrophils # Man Lymphocytes # (Manual) D-Dimer ABG pH POC ABG pCO2 POC ABG pO2 ABG Oxyhemoglobin ABG Sodium ABG Potassium ABG Chloride ABG Glucose Sodium Chloride Carbon Dioxide BUN Creatinine Glucose POC Glucose 329 H 320 H Hemoglobin A1c 11.7 H Lactic Acid Calcium Ferritin Total Bilirubin AST ALT Alkaline Phosphatase Lactate Dehydrogenase C-Reactive Protein Total Protein Albumin Arterial Blood Glucose Arterial Blood Ionized Calcium Ur Specific [place] Vancomycin Trough Coronavirus (PCR) 11/16/20 11/16/20 11/16/20 16:13 21:29 Unknown WBC RBC Lymph % (Auto) [place] % (Auto) Lymph # (Auto) [place] # (Auto) Baso # (Auto) Seg Neutrophils % Seg Neuts % (Manual) Lymphocytes % (Manual) Seg Neutrophils # Seg Neutrophils # Man Lymphocytes # (Manual) D-Dimer ABG pH POC ABG pCO2 POC ABG pO2 ABG Oxyhemoglobin ABG Sodium ABG Potassium ABG Chloride ABG Glucose Sodium Chloride Carbon Dioxide BUN Creatinine Glucose POC Glucose 257 H 376 H Hemoglobin A1c Lactic Acid Calcium Ferritin Total Bilirubin AST ALT Alkaline Phosphatase Lactate Dehydrogenase C-Reactive Protein Total Protein Albumin Arterial Blood Glucose Arterial Blood Ionized Calcium Ur Specific [place] Vancomycin Trough Coronavirus (PCR) Positive A 11/17/20 11/17/20 11/17/20 07:42 12:07 17:25 WBC RBC Lymph % (Auto) [place] % (Auto) Lymph # (Auto) [place] # (Auto) Baso # (Auto) Seg Neutrophils % Seg Neuts % (Manual) Lymphocytes % (Manual) Seg Neutrophils # Seg Neutrophils # Man Lymphocytes # (Manual) D-Dimer ABG pH POC ABG pCO2 POC ABG pO2 ABG Oxyhemoglobin ABG Sodium ABG Potassium ABG Chloride ABG Glucose Sodium Chloride Carbon Dioxide BUN Creatinine Glucose POC Glucose 231 H 380 H 302 H Hemoglobin A1c Lactic Acid Calcium Ferritin Total Bilirubin AST ALT Alkaline Phosphatase Lactate Dehydrogenase C-Reactive Protein Total Protein Albumin Arterial Blood Glucose Arterial Blood Ionized Calcium Ur Specific [place] Vancomycin Trough Coronavirus (PCR) 11/17/20 11/18/20 11/18/20 21:53 04:25 07:45 WBC RBC Lymph % (Auto) [place] % (Auto) Lymph # (Auto) [place] # (Auto) Baso # (Auto) Seg Neutrophils % Seg Neuts % (Manual) Lymphocytes % (Manual) Seg Neutrophils # Seg Neutrophils # Man Lymphocytes # (Manual) D-Dimer ABG pH POC ABG pCO2 POC ABG pO2 ABG Oxyhemoglobin ABG Sodium ABG Potassium ABG Chloride ABG Glucose Sodium 136 L Chloride Carbon Dioxide BUN 24 H Creatinine 0.6 L Glucose 212 H POC Glucose 293 H 216 H Hemoglobin A1c Lactic Acid Calcium 7.4 L Ferritin Total Bilirubin AST 41 H ALT Alkaline Phosphatase 142 H Lactate Dehydrogenase C-Reactive Protein Total Protein Albumin 2.3 L Arterial Blood Glucose Arterial Blood Ionized Calcium Ur Specific [place] Vancomycin Trough Coronavirus (PCR) 11/18/20 11/18/20 11/18/20 12:28 15:58 21:37 WBC RBC Lymph % (Auto) [place] % (Auto) Lymph # (Auto) [place] # (Auto) Baso # (Auto) Seg Neutrophils % Seg Neuts % (Manual) Lymphocytes % (Manual) Seg Neutrophils # Seg Neutrophils # Man Lymphocytes # (Manual) D-Dimer ABG pH POC ABG pCO2 POC ABG pO2 ABG Oxyhemoglobin ABG Sodium ABG Potassium ABG Chloride ABG Glucose Sodium Chloride Carbon Dioxide BUN Creatinine Glucose POC Glucose 165 H 220 H 311 H Hemoglobin A1c Lactic Acid Calcium Ferritin Total Bilirubin AST ALT Alkaline Phosphatase Lactate Dehydrogenase C-Reactive Protein Total Protein Albumin Arterial Blood Glucose Arterial Blood Ionized Calcium Ur Specific [place] Vancomycin Trough Coronavirus (PCR) 11/19/20 11/19/20 11/19/20 05:35 07:40 12:39 WBC RBC Lymph % (Auto) [place] % (Auto) Lymph # (Auto) [place] # (Auto) Baso # (Auto) Seg Neutrophils % Seg Neuts % (Manual) Lymphocytes % (Manual) Seg Neutrophils # Seg Neutrophils # Man Lymphocytes # (Manual) D-Dimer ABG pH POC ABG pCO2 POC ABG pO2 ABG Oxyhemoglobin ABG Sodium ABG Potassium ABG Chloride ABG Glucose Sodium 132 L Chloride Carbon Dioxide BUN 25 H Creatinine 0.5 L Glucose 179 H POC Glucose 149 H 306 H Hemoglobin A1c Lactic Acid Calcium 7.5 L Ferritin Total Bilirubin AST ALT Alkaline Phosphatase 139 H Lactate Dehydrogenase C-Reactive Protein Total Protein Albumin 2.4 L Arterial Blood Glucose Arterial Blood Ionized Calcium Ur Specific [place] Vancomycin Trough Coronavirus (PCR) 11/19/20 11/19/20 11/20/20 16:17 21:25 08:30 WBC RBC Lymph % (Auto) [place] % (Auto) Lymph # (Auto) [place] # (Auto) Baso # (Auto) Seg Neutrophils % Seg Neuts % (Manual) Lymphocytes % (Manual) Seg Neutrophils # Seg Neutrophils # Man Lymphocytes # (Manual) D-Dimer ABG pH POC ABG pCO2 POC ABG pO2 ABG Oxyhemoglobin ABG Sodium ABG Potassium ABG Chloride ABG Glucose Sodium Chloride Carbon Dioxide BUN Creatinine Glucose POC Glucose 364 H 347 H 141 H Hemoglobin A1c Lactic Acid Calcium Ferritin Total Bilirubin AST ALT Alkaline Phosphatase Lactate Dehydrogenase C-Reactive Protein Total Protein Albumin Arterial Blood Glucose Arterial Blood Ionized Calcium Ur Specific [place] Vancomycin Trough Coronavirus (PCR) 11/20/20 11/20/20 11/20/20 08:50 11:32 16:19 WBC RBC Lymph % (Auto) [place] % (Auto) Lymph # (Auto) [place] # (Auto) Baso # (Auto) Seg Neutrophils % Seg Neuts % (Manual) Lymphocytes % (Manual) Seg Neutrophils # Seg Neutrophils # Man Lymphocytes # (Manual) D-Dimer ABG pH POC ABG pCO2 POC ABG pO2 ABG Oxyhemoglobin ABG Sodium ABG Potassium ABG Chloride ABG Glucose Sodium 132 L Chloride 97.6 L Carbon Dioxide BUN 26 H Creatinine 0.5 L Glucose 201 H POC Glucose 296 H 327 H Hemoglobin A1c Lactic Acid Calcium 7.9 L Ferritin Total Bilirubin AST ALT Alkaline Phosphatase 137 H Lactate Dehydrogenase C-Reactive Protein Total Protein Albumin 2.6 L Arterial Blood Glucose Arterial Blood Ionized Calcium Ur Specific [place] Vancomycin Trough Coronavirus (PCR) 11/20/20 11/21/20 11/21/20 22:09 07:59 13:51 WBC RBC Lymph % (Auto) [place] % (Auto) Lymph # (Auto) [place] # (Auto) Baso # (Auto) Seg Neutrophils % Seg Neuts % (Manual) Lymphocytes % (Manual) Seg Neutrophils # Seg Neutrophils # Man Lymphocytes # (Manual) D-Dimer ABG pH POC ABG pCO2 POC ABG pO2 ABG Oxyhemoglobin ABG Sodium ABG Potassium ABG Chloride ABG Glucose Sodium Chloride Carbon Dioxide BUN Creatinine Glucose POC Glucose 311 H 218 H 304 H Hemoglobin A1c Lactic Acid Calcium Ferritin Total Bilirubin AST ALT Alkaline Phosphatase Lactate Dehydrogenase C-Reactive Protein Total Protein Albumin Arterial Blood Glucose Arterial Blood Ionized Calcium Ur Specific [place] Vancomycin Trough Coronavirus (PCR) 11/21/20 11/21/20 11/21/20 16:09 21:34 23:00 WBC RBC Lymph % (Auto) [place] % (Auto) Lymph # (Auto) [place] # (Auto) Baso # (Auto) Seg Neutrophils % Seg Neuts % (Manual) Lymphocytes % (Manual) Seg Neutrophils # Seg Neutrophils # Man Lymphocytes # (Manual) D-Dimer ABG pH 7.206 L POC ABG pCO2 59.3 H POC ABG pO2 76.7 L ABG Oxyhemoglobin ABG Sodium 133.1 L ABG Potassium ABG Chloride ABG Glucose 320 H Sodium Chloride Carbon Dioxide BUN Creatinine Glucose POC Glucose 239 H 279 H Hemoglobin A1c Lactic Acid Calcium Ferritin Total Bilirubin AST ALT Alkaline Phosphatase Lactate Dehydrogenase C-Reactive Protein Total Protein Albumin Arterial Blood Glucose 320 H Arterial Blood Ionized Calcium Ur Specific [place] Vancomycin Trough Coronavirus (PCR) 11/22/20 11/22/20 11/22/20 04:52 04:52 04:52 WBC RBC Lymph % (Auto) [place] % (Auto) Lymph # (Auto) [place] # (Auto) Baso # (Auto) Seg Neutrophils % Seg Neuts % (Manual) Lymphocytes % (Manual) Seg Neutrophils # Seg Neutrophils # Man Lymphocytes # (Manual) D-Dimer 1858.36 H ABG pH POC ABG pCO2 POC ABG pO2 ABG Oxyhemoglobin ABG Sodium ABG Potassium ABG Chloride ABG Glucose Sodium Chloride Carbon Dioxide BUN Creatinine Glucose POC Glucose Hemoglobin A1c Lactic Acid Calcium Ferritin 734.2 H Total Bilirubin AST ALT Alkaline Phosphatase Lactate Dehydrogenase 404 H C-Reactive Protein 2.80 H Total Protein Albumin Arterial Blood Glucose Arterial Blood Ionized Calcium Ur Specific [place] Vancomycin Trough Coronavirus (PCR) 11/22/20 11/22/20 11/22/20 05:12 05:39 11:50 WBC RBC Lymph % (Auto) [place] % (Auto) Lymph # (Auto) [place] # (Auto) Baso # (Auto) Seg Neutrophils % Seg Neuts % (Manual) Lymphocytes % (Manual) Seg Neutrophils # Seg Neutrophils # Man Lymphocytes # (Manual) D-Dimer ABG pH POC ABG pCO2 POC ABG pO2 51.0 L ABG Oxyhemoglobin ABG Sodium 131.2 L ABG Potassium 4.6 H ABG Chloride ABG Glucose 317 H Sodium Chloride Carbon Dioxide BUN Creatinine Glucose POC Glucose 340 H 417 H Hemoglobin A1c Lactic Acid Calcium Ferritin Total Bilirubin AST ALT Alkaline Phosphatase Lactate Dehydrogenase C-Reactive Protein Total Protein Albumin Arterial Blood Glucose 317 H Arterial Blood Ionized Calcium 4.4 L Ur Specific [place] Vancomycin Trough Coronavirus (PCR) 11/22/20 11/22/20 11/22/20 12:22 12:22 17:10 WBC 14.4 H RBC Lymph % (Auto) [place] % (Auto) Lymph # (Auto) [place] # (Auto) Baso # (Auto) Seg Neutrophils % Seg Neuts % (Manual) 98.0 H Lymphocytes % (Manual) Seg Neutrophils # Seg Neutrophils # Man 14.1 H Lymphocytes # (Manual) 0.0 L D-Dimer ABG pH POC ABG pCO2 POC ABG pO2 ABG Oxyhemoglobin ABG Sodium ABG Potassium ABG Chloride ABG Glucose Sodium 132 L Chloride Carbon Dioxide BUN 36 H Creatinine 0.6 L Glucose 219 H POC Glucose 157 H Hemoglobin A1c Lactic Acid Calcium 7.2 L Ferritin Total Bilirubin AST ALT Alkaline Phosphatase Lactate Dehydrogenase C-Reactive Protein Total Protein Albumin Arterial Blood Glucose Arterial Blood Ionized Calcium Ur Specific [place] Vancomycin Trough Coronavirus (PCR) 11/22/20 11/22/20 11/22/20 18:33 21:44 23:47 WBC RBC Lymph % (Auto) [place] % (Auto) Lymph # (Auto) [place] # (Auto) Baso # (Auto) Seg Neutrophils % Seg Neuts % (Manual) Lymphocytes % (Manual) Seg Neutrophils # Seg Neutrophils # Man Lymphocytes # (Manual) D-Dimer ABG pH POC ABG pCO2 POC ABG pO2 60.8 L ABG Oxyhemoglobin 88.1 L ABG Sodium 135.1 L ABG Potassium ABG Chloride ABG Glucose 141 H Sodium Chloride Carbon Dioxide BUN Creatinine Glucose POC Glucose 117 H 123 H Hemoglobin A1c Lactic Acid Calcium Ferritin Total Bilirubin AST ALT Alkaline Phosphatase Lactate Dehydrogenase C-Reactive Protein Total Protein Albumin Arterial Blood Glucose 141 H Arterial Blood Ionized Calcium Ur Specific [place] Vancomycin Trough Coronavirus (PCR) 11/23/20 11/23/20 11/23/20 04:00 04:00 05:23 WBC 14.4 H RBC Lymph % (Auto) [place] % (Auto) Lymph # (Auto) [place] # (Auto) Baso # (Auto) Seg Neutrophils % Seg Neuts % (Manual) Lymphocytes % (Manual) Seg Neutrophils # Seg Neutrophils # Man Lymphocytes # (Manual) D-Dimer ABG pH POC ABG pCO2 POC ABG pO2 ABG Oxyhemoglobin ABG Sodium ABG Potassium ABG Chloride ABG Glucose Sodium 136 L Chloride Carbon Dioxide BUN 33 H Creatinine 0.6 L Glucose 115 H POC Glucose 173 H Hemoglobin A1c Lactic Acid Calcium 7.1 L Ferritin Total Bilirubin AST 64 H ALT 75 H Alkaline Phosphatase Lactate Dehydrogenase C-Reactive Protein Total Protein 5.9 L D Albumin 2.4 L Arterial Blood Glucose Arterial Blood Ionized Calcium Ur Specific [place] Vancomycin Trough Coronavirus (PCR) 11/23/20 11/23/20 11/23/20 05:40 11:27 17:10 WBC RBC Lymph % (Auto) [place] % (Auto) Lymph # (Auto) [place] # (Auto) Baso # (Auto) Seg Neutrophils % Seg Neuts % (Manual) Lymphocytes % (Manual) Seg Neutrophils # Seg Neutrophils # Man Lymphocytes # (Manual) D-Dimer ABG pH POC ABG pCO2 POC ABG pO2 56.5 L ABG Oxyhemoglobin ABG Sodium ABG Potassium ABG Chloride 109.0 H ABG Glucose 114 H Sodium Chloride Carbon Dioxide BUN Creatinine Glucose POC Glucose 114 H 136 H Hemoglobin A1c Lactic Acid Calcium Ferritin Total Bilirubin AST ALT Alkaline Phosphatase Lactate Dehydrogenase C-Reactive Protein Total Protein Albumin Arterial Blood Glucose 114 H Arterial Blood Ionized Calcium 4.5 L Ur Specific [place] Vancomycin Trough Coronavirus (PCR) 11/24/20 11/24/20 11/24/20 05:14 05:14 05:14 WBC RBC Lymph % (Auto) [place] % (Auto) Lymph # (Auto) [place] # (Auto) Baso # (Auto) Seg Neutrophils % Seg Neuts % (Manual) Lymphocytes % (Manual) Seg Neutrophils # Seg Neutrophils # Man Lymphocytes # (Manual) D-Dimer 1433.39 H ABG pH POC ABG pCO2 POC ABG pO2 ABG Oxyhemoglobin ABG Sodium ABG Potassium ABG Chloride ABG Glucose Sodium Chloride Carbon Dioxide BUN Creatinine Glucose POC Glucose Hemoglobin A1c Lactic Acid Calcium Ferritin 997.5 H Total Bilirubin AST ALT Alkaline Phosphatase Lactate Dehydrogenase 463 H C-Reactive Protein Total Protein Albumin Arterial Blood Glucose Arterial Blood Ionized Calcium Ur Specific [place] Vancomycin Trough Coronavirus (PCR) 11/24/20 11/24/20 11/24/20 05:31 05:36 12:05 WBC RBC Lymph % (Auto) [place] % (Auto) Lymph # (Auto) [place] # (Auto) Baso # (Auto) Seg Neutrophils % Seg Neuts % (Manual) Lymphocytes % (Manual) Seg Neutrophils # Seg Neutrophils # Man Lymphocytes # (Manual) D-Dimer ABG pH POC ABG pCO2 POC ABG pO2 57.2 L ABG Oxyhemoglobin ABG Sodium ABG Potassium ABG Chloride ABG Glucose 180 H Sodium Chloride Carbon Dioxide BUN Creatinine Glucose POC Glucose 199 H 143 H Hemoglobin A1c Lactic Acid Calcium Ferritin Total Bilirubin AST ALT Alkaline Phosphatase Lactate Dehydrogenase C-Reactive Protein Total Protein Albumin Arterial Blood Glucose 180 H Arterial Blood Ionized Calcium 4.5 L Ur Specific [place] Vancomycin Trough Coronavirus (PCR) 11/24/20 11/24/20 11/24/20 12:14 17:47 23:47 WBC RBC Lymph % (Auto) [place] % (Auto) Lymph # (Auto) [place] # (Auto) Baso # (Auto) Seg Neutrophils % Seg Neuts % (Manual) Lymphocytes % (Manual) Seg Neutrophils # Seg Neutrophils # Man Lymphocytes # (Manual) D-Dimer ABG pH 7.261 L POC ABG pCO2 59.7 H POC ABG pO2 75.7 L ABG Oxyhemoglobin 92.5 L ABG Sodium ABG Potassium ABG Chloride 108.0 H ABG Glucose 150 H Sodium Chloride Carbon Dioxide BUN Creatinine Glucose POC Glucose 223 H 179 H Hemoglobin A1c Lactic Acid Calcium Ferritin Total Bilirubin AST ALT Alkaline Phosphatase Lactate Dehydrogenase C-Reactive Protein Total Protein Albumin Arterial Blood Glucose 150 H Arterial Blood Ionized Calcium Ur Specific [place] Vancomycin Trough Coronavirus (PCR) 11/25/20 11/25/20 11/25/20 03:29 05:07 05:15 WBC 13.9 H RBC Lymph % (Auto) [place] % (Auto) Lymph # (Auto) [place] # (Auto) Baso # (Auto) Seg Neutrophils % Seg Neuts % (Manual) 97.0 H Lymphocytes % (Manual) Seg Neutrophils # Seg Neutrophils # Man 13.5 H Lymphocytes # (Manual) 0.0 L D-Dimer ABG pH 7.272 L POC ABG pCO2 69.0 H POC ABG pO2 132.9 H ABG Oxyhemoglobin ABG Sodium ABG Potassium ABG Chloride ABG Glucose 174 H Sodium Chloride Carbon Dioxide BUN Creatinine Glucose POC Glucose 168 H Hemoglobin A1c Lactic Acid Calcium Ferritin Total Bilirubin AST ALT Alkaline Phosphatase Lactate Dehydrogenase C-Reactive Protein Total Protein Albumin Arterial Blood Glucose 174 H Arterial Blood Ionized Calcium Ur Specific [place] Vancomycin Trough Coronavirus (PCR) 11/25/20 11/25/20 11/25/20 05:15 11:25 17:35 WBC RBC Lymph % (Auto) [place] % (Auto) Lymph # (Auto) [place] # (Auto) Baso # (Auto) Seg Neutrophils % Seg Neuts % (Manual) Lymphocytes % (Manual) Seg Neutrophils # Seg Neutrophils # Man Lymphocytes # (Manual) D-Dimer ABG pH POC ABG pCO2 POC ABG pO2 ABG Oxyhemoglobin ABG Sodium ABG Potassium ABG Chloride ABG Glucose Sodium Chloride Carbon Dioxide BUN 29 H Creatinine 0.5 L Glucose 161 H POC Glucose 224 H 228 H Hemoglobin A1c Lactic Acid Calcium 7.8 L Ferritin Total Bilirubin AST 89 H ALT 129 H Alkaline Phosphatase Lactate Dehydrogenase C-Reactive Protein Total Protein 5.8 L Albumin 2.5 L Arterial Blood Glucose Arterial Blood Ionized Calcium Ur Specific [place] Vancomycin Trough Coronavirus (PCR) 11/25/20 11/25/20 11/26/20 20:45 23:28 04:00 WBC RBC Lymph % (Auto) [place] % (Auto) Lymph # (Auto) [place] # (Auto) Baso # (Auto) Seg Neutrophils % Seg Neuts % (Manual) Lymphocytes % (Manual) Seg Neutrophils # Seg Neutrophils # Man Lymphocytes # (Manual) D-Dimer ABG pH POC ABG pCO2 POC ABG pO2 ABG Oxyhemoglobin ABG Sodium ABG Potassium ABG Chloride ABG Glucose Sodium Chloride Carbon Dioxide BUN Creatinine Glucose POC Glucose 177 H 243 H Hemoglobin A1c Lactic Acid Calcium Ferritin 778.8 H Total Bilirubin AST ALT Alkaline Phosphatase Lactate Dehydrogenase C-Reactive Protein Total Protein Albumin Arterial Blood Glucose Arterial Blood Ionized Calcium Ur Specific [place] Vancomycin Trough Coronavirus (PCR) 11/26/20 11/26/20 11/26/20 04:00 05:34 06:04 WBC RBC Lymph % (Auto) [place] % (Auto) Lymph # (Auto) [place] # (Auto) Baso # (Auto) Seg Neutrophils % Seg Neuts % (Manual) Lymphocytes % (Manual) Seg Neutrophils # Seg Neutrophils # Man Lymphocytes # (Manual) D-Dimer 926.11 H ABG pH POC ABG pCO2 POC ABG pO2 ABG Oxyhemoglobin ABG Sodium ABG Potassium ABG Chloride ABG Glucose Sodium Chloride Carbon Dioxide 39 H D BUN 30 H Creatinine 0.5 L Glucose 193 H POC Glucose 178 H Hemoglobin A1c Lactic Acid Calcium 7.7 L Ferritin Total Bilirubin AST 65 H ALT 132 H Alkaline Phosphatase Lactate Dehydrogenase 288 H C-Reactive Protein 1.40 H Total Protein 5.7 L Albumin 2.4 L Arterial Blood Glucose Arterial Blood Ionized Calcium Ur Specific [place] Vancomycin Trough Coronavirus (PCR) 11/26/20 11/26/20 11/26/20 06:04 08:47 11:20 WBC 12.4 H RBC Lymph % (Auto) [place] % (Auto) Lymph # (Auto) [place] # (Auto) Baso # (Auto) Seg Neutrophils % Seg Neuts % (Manual) 98.0 H Lymphocytes % (Manual) 1.0 L Seg Neutrophils # Seg Neutrophils # Man 12.2 H Lymphocytes # (Manual) 0.1 L D-Dimer ABG pH POC ABG pCO2 75.2 H POC ABG pO2 61.9 L ABG Oxyhemoglobin 90.3 L ABG Sodium ABG Potassium ABG Chloride ABG Glucose 243 H Sodium Chloride Carbon Dioxide BUN Creatinine Glucose POC Glucose 255 H Hemoglobin A1c Lactic Acid Calcium Ferritin Total Bilirubin AST ALT Alkaline Phosphatase Lactate Dehydrogenase C-Reactive Protein Total Protein Albumin Arterial Blood Glucose 243 H Arterial Blood Ionized Calcium Ur Specific [place] Vancomycin Trough Coronavirus (PCR) 11/26/20 11/26/20 11/26/20 16:20 17:15 23:41 WBC RBC Lymph % (Auto) [place] % (Auto) Lymph # (Auto) [place] # (Auto) Baso # (Auto) Seg Neutrophils % Seg Neuts % (Manual) Lymphocytes % (Manual) Seg Neutrophils # Seg Neutrophils # Man Lymphocytes # (Manual) D-Dimer ABG pH POC ABG pCO2 66.6 H POC ABG pO2 78.1 L ABG Oxyhemoglobin ABG Sodium ABG Potassium ABG Chloride ABG Glucose 244 H Sodium Chloride Carbon Dioxide BUN Creatinine Glucose POC Glucose 219 H 210 H Hemoglobin A1c Lactic Acid Calcium Ferritin Total Bilirubin AST ALT Alkaline Phosphatase Lactate Dehydrogenase C-Reactive Protein Total Protein Albumin Arterial Blood Glucose 244 H Arterial Blood Ionized Calcium Ur Specific [place] Vancomycin Trough Coronavirus (PCR) 11/27/20 11/27/20 11/27/20 04:46 05:38 06:25 WBC 13.8 H RBC Lymph % (Auto) 2.0 L [place] % (Auto) Lymph # (Auto) 0.3 L [place] # (Auto) Baso # (Auto) Seg Neutrophils % Seg Neuts % (Manual) 96.0 H Lymphocytes % (Manual) Seg Neutrophils # 12.7 H Seg Neutrophils # Man 13.2 H Lymphocytes # (Manual) 0.0 L D-Dimer ABG pH POC ABG pCO2 63.0 H POC ABG pO2 53.6 L ABG Oxyhemoglobin 87.8 L ABG Sodium 115.4 L ABG Potassium ABG Chloride ABG Glucose 219 H Sodium Chloride Carbon Dioxide BUN Creatinine Glucose POC Glucose 227 H Hemoglobin A1c Lactic Acid Calcium Ferritin Total Bilirubin AST ALT Alkaline Phosphatase Lactate Dehydrogenase C-Reactive Protein Total Protein Albumin Arterial Blood Glucose 219 H Arterial Blood Ionized Calcium Ur Specific [place] Vancomycin Trough Coronavirus (PCR) 11/27/20 11/27/20 11/27/20 06:25 18:05 23:29 WBC RBC Lymph % (Auto) [place] % (Auto) Lymph # (Auto) [place] # (Auto) Baso # (Auto) Seg Neutrophils % Seg Neuts % (Manual) Lymphocytes % (Manual) Seg Neutrophils # Seg Neutrophils # Man Lymphocytes # (Manual) D-Dimer ABG pH POC ABG pCO2 POC ABG pO2 ABG Oxyhemoglobin ABG Sodium ABG Potassium ABG Chloride ABG Glucose Sodium Chloride Carbon Dioxide 38 H BUN 34 H Creatinine 0.4 L Glucose 243 H POC Glucose 329 H 227 H Hemoglobin A1c Lactic Acid Calcium 7.9 L Ferritin Total Bilirubin AST 50 H ALT 110 H Alkaline Phosphatase Lactate Dehydrogenase C-Reactive Protein Total Protein 6.1 L Albumin 2.4 L Arterial Blood Glucose Arterial Blood Ionized Calcium Ur Specific [place] Vancomycin Trough Coronavirus (PCR) 11/28/20 11/28/20 11/28/20 03:45 03:45 03:46 WBC 12.2 H RBC Lymph % (Auto) [place] % (Auto) Lymph # (Auto) [place] # (Auto) Baso # (Auto) Seg Neutrophils % Seg Neuts % (Manual) 93.0 H Lymphocytes % (Manual) 2.0 L Seg Neutrophils # Seg Neutrophils # Man 11.3 H Lymphocytes # (Manual) 0.2 L D-Dimer ABG pH POC ABG pCO2 68.4 H POC ABG pO2 55.4 L ABG Oxyhemoglobin ABG Sodium ABG Potassium ABG Chloride ABG Glucose 197 H Sodium Chloride Carbon Dioxide 36 H BUN 37 H Creatinine 0.4 L Glucose 194 H POC Glucose Hemoglobin A1c Lactic Acid Calcium 8.1 L Ferritin Total Bilirubin AST ALT 86 H Alkaline Phosphatase Lactate Dehydrogenase C-Reactive Protein Total Protein 6.0 L Albumin 2.3 L Arterial Blood Glucose 197 H Arterial Blood Ionized Calcium Ur Specific [place] Vancomycin Trough Coronavirus (PCR) 11/28/20 11/28/20 11/29/20 05:24 12:21 04:41 WBC RBC Lymph % (Auto) [place] % (Auto) Lymph # (Auto) [place] # (Auto) Baso # (Auto) Seg Neutrophils % Seg Neuts % (Manual) Lymphocytes % (Manual) Seg Neutrophils # Seg Neutrophils # Man Lymphocytes # (Manual) D-Dimer ABG pH POC ABG pCO2 55.1 H POC ABG pO2 53.6 L ABG Oxyhemoglobin 87.1 L ABG Sodium 131.2 L ABG Potassium ABG Chloride ABG Glucose 164 H Sodium Chloride Carbon Dioxide BUN Creatinine Glucose POC Glucose 173 H 126 H Hemoglobin A1c Lactic Acid Calcium Ferritin Total Bilirubin AST ALT Alkaline Phosphatase Lactate Dehydrogenase C-Reactive Protein Total Protein Albumin Arterial Blood Glucose 164 H Arterial Blood Ionized Calcium 4.4 L Ur Specific [place] Vancomycin Trough Coronavirus (PCR) 11/29/20 11/29/20 11/29/20 05:29 12:41 13:28 WBC RBC Lymph % (Auto) [place] % (Auto) Lymph # (Auto) [place] # (Auto) Baso # (Auto) Seg Neutrophils % Seg Neuts % (Manual) Lymphocytes % (Manual) Seg Neutrophils # Seg Neutrophils # Man Lymphocytes # (Manual) D-Dimer ABG pH POC ABG pCO2 POC ABG pO2 ABG Oxyhemoglobin ABG Sodium ABG Potassium ABG Chloride ABG Glucose Sodium Chloride Carbon Dioxide 40 H BUN 32 H Creatinine 0.4 L Glucose 274 H POC Glucose 173 H 257 H Hemoglobin A1c Lactic Acid Calcium 7.2 L Ferritin Total Bilirubin AST 57 H ALT 102 H Alkaline Phosphatase Lactate Dehydrogenase C-Reactive Protein Total Protein 5.7 L Albumin 2.1 L Arterial Blood Glucose Arterial Blood Ionized Calcium Ur Specific [place] Vancomycin Trough Coronavirus (PCR) 11/29/20 11/29/20 11/29/20 15:40 17:36 21:26 WBC RBC Lymph % (Auto) [place] % (Auto) Lymph # (Auto) [place] # (Auto) Baso # (Auto) Seg Neutrophils % Seg Neuts % (Manual) Lymphocytes % (Manual) Seg Neutrophils # Seg Neutrophils # Man Lymphocytes # (Manual) D-Dimer ABG pH POC ABG pCO2 POC ABG pO2 ABG Oxyhemoglobin ABG Sodium ABG Potassium ABG Chloride ABG Glucose Sodium Chloride Carbon Dioxide BUN Creatinine Glucose POC Glucose 240 H 244 H Hemoglobin A1c Lactic Acid Calcium Ferritin Total Bilirubin AST ALT Alkaline Phosphatase Lactate Dehydrogenase C-Reactive Protein Total Protein Albumin Arterial Blood Glucose Arterial Blood Ionized Calcium Ur Specific [place] Vancomycin Trough 4.0 L Coronavirus (PCR) 11/29/20 11/30/20 11/30/20 23:26 03:30 03:30 WBC RBC Lymph % (Auto) [place] % (Auto) Lymph # (Auto) [place] # (Auto) Baso # (Auto) Seg Neutrophils % Seg Neuts % (Manual) 97.0 H Lymphocytes % (Manual) 1.0 L Seg Neutrophils # Seg Neutrophils # Man 9.9 H Lymphocytes # (Manual) 0.1 L D-Dimer ABG pH POC ABG pCO2 POC ABG pO2 ABG Oxyhemoglobin ABG Sodium ABG Potassium ABG Chloride ABG Glucose Sodium Chloride Carbon Dioxide 38 H BUN 34 H Creatinine 0.4 L Glucose 305 H POC Glucose 283 H Hemoglobin A1c Lactic Acid Calcium 7.6 L Ferritin Total Bilirubin AST ALT 89 H Alkaline Phosphatase Lactate Dehydrogenase C-Reactive Protein Total Protein 6.0 L Albumin 2.3 L Arterial Blood Glucose Arterial Blood Ionized Calcium Ur Specific [place] Vancomycin Trough Coronavirus (PCR) 11/30/20 11/30/20 11/30/20 03:57 05:22 12:05 WBC RBC Lymph % (Auto) [place] % (Auto) Lymph # (Auto) [place] # (Auto) Baso # (Auto) Seg Neutrophils % Seg Neuts % (Manual) Lymphocytes % (Manual) Seg Neutrophils # Seg Neutrophils # Man Lymphocytes # (Manual) D-Dimer ABG pH POC ABG pCO2 60.8 H POC ABG pO2 51.1 L ABG Oxyhemoglobin 84.6 L ABG Sodium ABG Potassium ABG Chloride ABG Glucose 315 H Sodium Chloride Carbon Dioxide BUN Creatinine Glucose POC Glucose 295 H 413 H Hemoglobin A1c Lactic Acid Calcium Ferritin Total Bilirubin AST ALT Alkaline Phosphatase Lactate Dehydrogenase C-Reactive Protein Total Protein Albumin Arterial Blood Glucose 315 H Arterial Blood Ionized Calcium 4.5 L Ur Specific [place] Vancomycin Trough Coronavirus (PCR)
--- NOTE | 2020-11-30 12:45 | XRay Report ---
XR chest 1V ap INDICATION / CLINICAL INFORMATION: vent, b/l chest tubes. COMPARISON: 11/29/2020 FINDINGS: SUPPORT DEVICES: Unchanged positioning of support devices, to include bilateral thoracostomy tubes. HEART /PULMONARY VASCULATURE: Unchanged LUNGS / PLEURA: Bilateral pulmonary airspace opacities are similar. Tiny biapical pneumothoraces are unchanged. IMPRESSION: No significant change. Signer Name: Luigi Camacho MD Signed: 11/30/2020 12:40 PM Workstation Name: [id number]
[2020-11-30] MEDS: MIDAZOLAM 100 MG in SODIUM CHLORIDE 0.9% 80 ML IV SCH (13:16)
--- NOTE | 2020-11-30 13:39 | Progress Note ---
Assessment and Plan 59-year-old male with 1. COVID PNA 2. VDRF 3. sepsis 4. Bilateral pneumothorax s/p bilateral chest tube placement CXR 11/30/2020: Stable compared to 11/29/20. Satisfactory positioning of chest tubes. Tiny apical PTX b/l. VENT: FIO2 80%, PEEP 18, TV: 350 RR: 30 Plan: 1. Vent management per ICU team 2. Continue b/l chest tubes to -[id number] suction 3. daily CXR Guarded prognosis. Thank you for this consultation. Please call with any questions or concerns. Evaluation and treatment of this patient was during the time of the national and state emergency arising from COVID19 coronavirus pandemic. Treatment and procedures performed meet the current and available best practice and guidelines for patient during the COVID pandemic. Subjective Date of service: 11/30/20 Narrative: Pt seen and examined. No acute change in condition. Remains on vent. Objective Vital Signs - 12hr 11/30/20 11/30/20 11/30/20 01:45 02:00 02:05 Temperature Pulse Rate 73 65 67 Pulse Rate [ 63 From Monitor] Respiratory 18 30 H 26 H Rate Blood Pressure 119/71 109/65 O2 Sat by Pulse 91 89 94 Oximetry 11/30/20 11/30/20 11/30/20 02:15 02:30 02:45 Temperature Pulse Rate 66 69 67 Pulse Rate [ From Monitor] Respiratory 26 H 30 H 26 H Rate Blood Pressure 113/58 111/64 109/64 O2 Sat by Pulse 91 92 91 Oximetry 11/30/20 11/30/20 11/30/20 03:00 03:05 03:15 Temperature Pulse Rate 67 67 61 Pulse Rate [ 63 From Monitor] Respiratory 24 26 H 30 H Rate Blood Pressure 101/58 98/61 O2 Sat by Pulse 91 94 93 Oximetry 11/30/20 11/30/20 11/30/20 03:30 03:45 03:55 Temperature 98.4 F Pulse Rate 62 62 61 Pulse Rate [ From Monitor] Respiratory 29 H 29 H Rate Blood Pressure 108/59 104/62 104/62 O2 Sat by Pulse 90 92 92 Oximetry 11/30/20 11/30/20 11/30/20 04:00 04:16 04:30 Temperature Pulse Rate 61 62 73 Pulse Rate [ From Monitor] Respiratory 19 24 21 Rate Blood Pressure 103/61 130/71 130/76 O2 Sat by Pulse 93 95 95 Oximetry 11/30/20 11/30/20 11/30/20 04:45 05:00 05:15 Temperature Pulse Rate 69 66 67 Pulse Rate [ From Monitor] Respiratory 26 H 30 H 22 Rate Blood Pressure 117/66 120/64 121/58 O2 Sat by Pulse 90 90 90 Oximetry 11/30/20 11/30/20 11/30/20 05:30 05:45 06:00 Temperature Pulse Rate 66 64 69 Pulse Rate [ From Monitor] Respiratory 26 H 30 H 24 Rate Blood Pressure 121/64 109/61 107/58 O2 Sat by Pulse 91 89 92 Oximetry 11/30/20 11/30/20 11/30/20 06:15 06:30 06:45 Temperature Pulse Rate 63 63 65 Pulse Rate [ From Monitor] Respiratory 29 H 26 H 15 Rate Blood Pressure 117/62 113/62 109/62 O2 Sat by Pulse 91 91 92 Oximetry 11/30/20 11/30/20 11/30/20 07:00 07:15 07:30 Temperature Pulse Rate 64 68 66 Pulse Rate [ From Monitor] Respiratory 20 18 17 Rate Blood Pressure 108/61 112/60 105/59 O2 Sat by Pulse 93 93 90 Oximetry 11/30/20 11/30/20 11/30/20 07:45 08:00 08:05 Temperature 98.7 F Pulse Rate 65 64 64 Pulse Rate [ 63 From Monitor] Respiratory 17 19 Rate Blood Pressure 112/61 107/62 107/62 O2 Sat by Pulse 92 91 91 Oximetry 11/30/20 11/30/20 11/30/20 08:15 08:30 08:45 Temperature Pulse Rate 64 67 64 Pulse Rate [ From Monitor] Respiratory 25 H 15 20 Rate Blood Pressure 113/60 109/60 109/62 O2 Sat by Pulse 92 93 94 Oximetry 11/30/20 11/30/20 11/30/20 09:00 09:15 09:30 Temperature Pulse Rate 63 66 69 Pulse Rate [ From Monitor] Respiratory 19 14 15 Rate Blood Pressure 116/64 117/60 111/60 O2 Sat by Pulse 93 93 92 Oximetry 11/30/20 11/30/20 11/30/20 09:45 10:00 10:15 Temperature Pulse Rate 70 70 71 Pulse Rate [ From Monitor] Respiratory 26 H 15 17 Rate Blood Pressure 116/60 109/58 117/59 O2 Sat by Pulse 91 90 91 Oximetry 11/30/20 11/30/20 11/30/20 10:30 10:46 11:00 Temperature Pulse Rate 72 75 77 Pulse Rate [ From Monitor] Respiratory 17 18 19 Rate Blood Pressure 104/62 113/68 131/70 O2 Sat by Pulse 90 93 90 Oximetry 11/30/20 11/30/20 11/30/20 11:15 11:30 11:45 Temperature Pulse Rate 80 85 95 H Pulse Rate [ From Monitor] Respiratory 17 20 22 Rate Blood Pressure 123/68 142/59 152/65 O2 Sat by Pulse 90 89 86 Oximetry 11/30/20 11/30/20 11/30/20 12:00 12:15 12:49 Temperature 98.9 F Pulse Rate 115 H 114 H 114 H Pulse Rate [ 108 H From Monitor] Respiratory 25 H 23 Rate Blood Pressure 151/83 145/86 145/86 O2 Sat by Pulse 86 84 84 Oximetry - General physical appearance Narrative Exam: Gen.: Intubated, sedated. ENT: ET tube and OG tube in place. Trachea midline. Subcutaneous emphysema of b/l neck unchanged. CV: S1, S2 present Respiratory: Bilateral chest tubes with minimal serosang drainage and no air leak. B/l dressings saturated with serosang drainage - both dressings removed. No active bleeding from sites. New occlusive dressings applied. Extremities: Generalized edema - Labs 11/30/20 03:30 11/30/20 03:30 Diabetes panel 11/29/20 11/30/20 Range/Units 13:28 03:30 Sodium 141 141 (137-145) mmol/L Potassium 4.6 4.6 (3.6-5.0) mmol/L Chloride 102.3 100.3 (98-107) mmol/L Carbon Dioxide 40 H 38 H (22-30) mmol/L BUN 32 H 34 H (9-20) mg/dL Creatinine 0.4 L 0.4 L (0.8-1.3) mg/dL Glucose 274 H 305 H (75-100) mg/dL Calcium 7.2 L 7.6 L (8.4-10.2) mg/dL AST 57 H 39 (5-40) units/L ALT 102 H 89 H (7-56) units/L Alkaline Phosphatase 98 109 (35-129) units/L Total Protein 5.7 L 6.0 L (6.3-8.2) g/dL Albumin 2.1 L 2.3 L (3.9-5) g/dL Calcium panel 11/29/20 11/30/20 Range/Units 13:28 03:30 Calcium 7.2 L 7.6 L (8.4-10.2) mg/dL Albumin 2.1 L 2.3 L (3.9-5) g/dL Pituitary panel 11/29/20 11/30/20 Range/Units 13:28 03:30 Sodium 141 141 (137-145) mmol/L Potassium 4.6 4.6 (3.6-5.0) mmol/L Chloride 102.3 100.3 (98-107) mmol/L Carbon Dioxide 40 H 38 H (22-30) mmol/L BUN 32 H 34 H (9-20) mg/dL Creatinine 0.4 L 0.4 L (0.8-1.3) mg/dL Glucose 274 H 305 H (75-100) mg/dL Calcium 7.2 L 7.6 L (8.4-10.2) mg/dL Adrenal panel 11/29/20 11/30/20 Range/Units 13:28 03:30 Sodium 141 141 (137-145) mmol/L Potassium 4.6 4.6 (3.6-5.0) mmol/L Chloride 102.3 100.3 (98-107) mmol/L Carbon Dioxide 40 H 38 H (22-30) mmol/L BUN 32 H 34 H (9-20) mg/dL Creatinine 0.4 L 0.4 L (0.8-1.3) mg/dL Glucose 274 H 305 H (75-100) mg/dL Calcium 7.2 L 7.6 L (8.4-10.2) mg/dL Total Bilirubin 0.60 0.40 (0.1-1.2) mg/dL AST 57 H 39 (5-40) units/L ALT 102 H 89 H (7-56) units/L Alkaline Phosphatase 98 109 (35-129) units/L Total Protein 5.7 L 6.0 L (6.3-8.2) g/dL Albumin 2.1 L 2.3 L (3.9-5) g/dL
[2020-11-30] MEDS: VANCOMYCIN 1,500 MG in SODIUM CHLORIDE 0.9% 500 ML 500 ML IV SCH (17:44)
--- NOTE | 2020-11-30 18:04 | Progress Note ---
Assessment and Plan Cultures: SARS CoV-2 PCR: positive Blood culture: No growth 11/21/2020 tracheal aspirate culture: MRSA A/P: 59-year-old male: #Bilateral pneumonia: secondary to COVID-19. Admission labs showed leukocytosis, D-dimer greater than 10,000, ferritin 672, CRP 19.8, LDH 663, creatinine 0.6, procalcitonin 0.51. Completed 5 days of abx, remdesivir. #MRSA on ET aspirate culture, ?colonization v/s true disease, difficult to differentiate. #Right-sided pneumothorax and pneumomediastinum: Underwent placement of right- sided chest tube #Acute hypoxic respiratory failure: Failed BiPAP. Remains on the vent. #Elevated d-dimer: DVT scan negative. Unable to get CTA Chest due to patients unstable clinical status #Transaminitis: secondary to COVID-19. Recs: -MRSA on ET aspirate culture, ?colonization v/s true disease, difficult to diff erentiate, remains critically ill,IV Vancomycin x 7 days. Stop date 12/03/2020 -continue steroids per ICU team -Continue prophylactic anticoagulation based on d-dimer per hospital protocol -trend ferritin, LDH, d-dimer, CRP every 2-3 days for risk stratification and to assess disease progression -guarded prognosis Rm Carrillo MD [facility] O: [phone] F: [phone] Subjective Date of service: 11/30/20 Principal diagnosis: COVID-19 Interval history: Afebrile, normal white count. Imaging personally reviewed: Chest x-ray: No change Objective - Exam Narrative Exam: Physical exam deferred due to PPE conservation strategy. Please refer to primary team's note. - Constitutional Vitals: Vital Signs Temp Pulse Resp BP Pulse Ox 98.9 F 77 30 H 102/56 94 11/30/20 15:50 11/30/20 17:00 11/30/20 17:00 11/30/20 17:00 11/30/20 17:00 Temperature -Last 24 Hours Temperature 98.9 F Temperature 98.9 F Temperature 98.7 F Temperature 98.4 F Temperature 98 F Temperature 98.1 F Temperature 99.2 F - Labs CBC & Chem 7: 11/30/20 03:30 11/30/20 03:30 Labs: Abnormal lab results 11/29/20 11/29/20 11/30/20 Range/Units 21:26 23:26 03:30 Seg Neuts % (Manual) 97.0 H (40.0-70.0) % Lymphocytes % (Manual) 1.0 L (13.4-35.0) % Seg Neutrophils # Man 9.9 H (1.8-7.7) K/mm3 Lymphocytes # (Manual) 0.1 L (1.2-5.4) K/mm3 POC ABG pCO2 (32.0-48.0) mmHg POC ABG pO2 (83-108) mmHg ABG Oxyhemoglobin (94-98) ABG Glucose (65-95) mg/dL Carbon Dioxide (22-30) mmol/L BUN (9-20) mg/dL Creatinine (0.8-1.3) mg/dL Glucose (75-100) mg/dL POC Glucose 244 H 283 H (70-105) mg/dL Calcium (8.4-10.2) mg/dL ALT (7-56) units/L Total Protein (6.3-8.2) g/dL Albumin (3.9-5) g/dL Arterial Blood Glucose (65-95) mg/dL Arterial Blood Ionized Calcium (4.6-5.3) mg/dL 11/30/20 11/30/20 11/30/20 Range/Units 03:30 03:57 05:22 Seg Neuts % (Manual) (40.0-70.0) % Lymphocytes % (Manual) (13.4-35.0) % Seg Neutrophils # Man (1.8-7.7) K/mm3 Lymphocytes # (Manual) (1.2-5.4) K/mm3 POC ABG pCO2 60.8 H (32.0-48.0) mmHg POC ABG pO2 51.1 L (83-108) mmHg ABG Oxyhemoglobin 84.6 L (94-98) ABG Glucose 315 H (65-95) mg/dL Carbon Dioxide 38 H (22-30) mmol/L BUN 34 H (9-20) mg/dL Creatinine 0.4 L (0.8-1.3) mg/dL Glucose 305 H (75-100) mg/dL POC Glucose 295 H (70-105) mg/dL Calcium 7.6 L (8.4-10.2) mg/dL ALT 89 H (7-56) units/L Total Protein 6.0 L (6.3-8.2) g/dL Albumin 2.3 L (3.9-5) g/dL Arterial Blood Glucose 315 H (65-95) mg/dL Arterial Blood Ionized Calcium 4.5 L (4.6-5.3) mg/dL 11/30/20 Range/Units 12:05 Seg Neuts % (Manual) (40.0-70.0) % Lymphocytes % (Manual) (13.4-35.0) % Seg Neutrophils # Man (1.8-7.7) K/mm3 Lymphocytes # (Manual) (1.2-5.4) K/mm3 POC ABG pCO2 (32.0-48.0) mmHg POC ABG pO2 (83-108) mmHg ABG Oxyhemoglobin (94-98) ABG Glucose (65-95) mg/dL Carbon Dioxide (22-30) mmol/L BUN (9-20) mg/dL Creatinine (0.8-1.3) mg/dL Glucose (75-100) mg/dL POC Glucose 413 H (70-105) mg/dL Calcium (8.4-10.2) mg/dL ALT (7-56) units/L Total Protein (6.3-8.2) g/dL Albumin (3.9-5) g/dL Arterial Blood Glucose (65-95) mg/dL Arterial Blood Ionized Calcium (4.6-5.3) mg/dL
[2020-12-01 04:27] LABS: Hematocrit 31.8 % (35.5-45.6); Hemoglobin 10.4 gm/dl (11.8-15.2); Mean Corpuscular HGB Conc 33 % (32-34); Mean Corpuscular Volume 90 fl (84-94); Platelet Count 175 K/mm3 (140-440); Red Blood Count 3.54 M/mm3 (3.65-5.03); Red Cell Distribution Width 13.6 % (13.2-15.2)
[2020-12-01 05:03] LABS: Alanine Aminotransferase 63 units/L (7-56); Albumin 2.1 g/dL (3.9-5); Blood Urea Nitrogen 34 mg/dL (9-20); Calcium 7.6 mg/dL (8.4-10.2); Hemolysis Index 3
[2020-12-01 05:04] LABS: BUN/Creatinine Ratio 68
[2020-12-01] MEDS: methylPREDNISolone Sod Succinate 125 MG/2 ML INJ IV SCH ×3 (05:53→17:56)
[2020-12-01] MEDS: VANCOMYCIN 1,500 MG in SODIUM CHLORIDE 0.9% 500 ML 500 ML IV SCH ×2 (05:53→17:56)
[2020-12-01 06:01] LABS: Platelet Estimate P; Total Cells Counted 100
[2020-12-01] MEDS: INSULIN LISPRO 100 UNIT/ML SUB-Q SCH ×4 (06:13→23:54)
[2020-12-01] MEDS: INSULIN GLARGINE 100 UNITS/ML SUB-Q SCH (08:01)
[2020-12-01] MEDS: FAMOTIDINE 20 MG/2 ML INJ IV SCH ×2 (09:30→21:07)
--- NOTE | 2020-12-01 11:04 | Progress Note ---
Assessment and Plan Assessment and plan: 59-year-old female presents with shortness of breath cough fever weakness. "1 to 2 days. Patient has severe hypoxia per EMS. Her saturations are in the low 80s. With all oxygen and nonrebreather came down to low 90s. Patient denies any past medical history. Exposure to coronavirus present. Does not have a primary care physician. 2/1: Patient continues on BiPAP throughout the night. Labs are remarkable for hypoxia with improving renal function but lactic acidosis without fever. CTA has been ordered to rule out pulmonary embolism. I agree with increasing enoxaparin to twice daily full dose for empiric treatment of pulmonary embolism. Will obtain ID consultation on further evaluation for possible underlying pneumonia versus COVID-19. We will also obtain echocardiogram for evaluation. Will discontinue fluids at this time. 2/2; Continue supportive care, Patient remains with very guarded prognosis, remains on BiPAP, continues on Remdesivir, and steroids. Will continue antico agulation, unable to get CTA Chest due to patients unstable clinical status. Will adjust insulin for better blood glucose 2/3: Continues on BIPAP, no clear improvement at this time. Will continue richelle roids therapy Remdesivir and also Full anticoagulation at this time. Will update family. Discussed with [place] Attacher. 2/4: Taking a break from the BiPAP on high flow and nonrebreather 100% with saturation of 90% becomes hypoxic with any movement. [place] Attacher input noted will get a dose of Lasix today. Will await a discussion with ID for possibly increasing steroid. I updated Patient's Cousin, Tayla Esquivel who is the emergency contact center analyst. Blood sugar remains fluctuating secondary to steriods, Encouraged Prone positioning. Noted with mild hyponatremia we will continue to monitor and manage 2/5: Continue supportive care wean oxygen as tolerated prognosis remains guarded. Encouraged to progress as tolerated. Awaiting labs today. Discussed with nursing staff and patient at bedside. 2/6: Discontinued Dexamethasone as Solumedrol started secondary to increased oxygen demand. Will give additional insulin for better control. Continue oxygen support patient still on high flow. Prognosis still guarded 2/7: Patient was intubated and placed on mechanical ventilation. Continue current medication. Will check a.m. labs today. Noted still with hypotension. Doubt septic shock at this time as patient has no new fever. Will adjust insulin for better blood sugar control. 11/23: Patient admitted with COVID-19 despite all efforts patient remains severely hypoxic and now is intubated. [place] Attacher input noted. Blood pressure marginal at this time. Very poor prognosis. Continue Solu-Medrol. 11/24. Patient remains very hypoxic. Blood pressure borderline. Plan for initiation of paralytic agents as per basic sciences dean. Patient may need to be transferred if no improvement. 11/26. Off paralytics. Remains intubated. On steroids. Prognosis is poor. 11/27. Chest xray shows pneumomediastinum and subcutaneous emphysema. Surgery consulted. Plan for chest tube placement. Sputum culture grew MRSA. Patient started on vancomycin per ID. 11/28. Right chest tube placed yesterday by surgery. Repeat chest x-ray showed left small pneumothorax. Plan for chest tube placement on the left today. Remains on paralytic agents. 11/29. Remains intubated on vent. Had left chest tube placed yesterday. Vitals reviewed. Critical care following 11/30/ Remains on mechanical ventilation. Worsening hypoxia. Bilateral chest tubes in place. Vitals reviewed. Labs reviewed 12/01: Chest tube and mechanical ventilation remains in place, poor prognosis, FIO2 remains at 90%, adjust insulin for better blood glucose control Problems --Acute respiratory failure with hypoxia 11/17 COVID 19 pneumonia Patient remains fully dependent on mechanical ventilatory support [place] Attacher on board On solumedrol 60 q 6 ID on board Prognosis is poor --Pneumomediastinum, subcutaneous emphysema, small left-sided pneumothorax Right and Left chest tube in place Surgery following --Diabetes Mellitus Continue to adjust Insulin dosage Monitor blood glucose closely --- Covid pneumonia Management as above ---MRSA pneumonia Vancomycin ID on board The high probability of a clinically significant, sudden or life threatening deterioration of the [pulmonary] system(s) required my full and direct attention, intervention and personal management. The aggregate critical care time was [35] minutes. This time is in addition to time spent performing reported procedures but includes the following: [X] Data Review and interpretation [X] Patient assessment and monitoring of vital signs [X] Documentation [X] Medication orders and management History Interval history: Patient remains intubated, sedated, and with bilateral chest tubes. Hospitalist Physical - Constitutional Vitals: Temp Pulse Resp BP Pulse Ox 97 F L 65 21 101/53 96 12/01/20 08:00 12/01/20 09:00 12/01/20 09:00 12/01/20 09:00 12/01/20 09:00 General appearance: Present: mild distress, well-nourished HEART Score - HEART Score Troponin: Troponin T < 0.010 ng/mL (0.00-0.029) 11/22/20 Unknown Results - Labs CBC & Chem 7: 12/02/20 02:14 12/02/20 04:11 Labs: Laboratory Last Values WBC 13.4 K/mm3 (4.5-11.0) H 12/01/20 03:35 RBC 3.54 M/mm3 (3.65-5.03) L 12/01/20 03:35 Hgb 10.4 gm/dl (11.8-15.2) L 12/01/20 03:35 Hct 31.8 % (35.5-45.6) L 12/01/20 03:35 MCV 90 fl (84-94) 12/01/20 03:35 MCH 30 pg (28-32) 12/01/20 03:35 MCHC 33 % (32-34) 12/01/20 03:35 RDW 13.6 % (13.2-15.2) 12/01/20 03:35 Plt Count 175 K/mm3 (140-440) 12/01/20 03:35 Lymph % (Auto) 2.0 % (13.4-35.0) L 11/27/20 06:25 Henry % (Auto) 5.2 % (0.0-7.3) 11/27/20 06:25 Eos % (Auto) 0.0 % (0.0-4.3) 11/27/20 06:25 Baso % (Auto) 0.1 % (0.0-1.8) 11/27/20 06:25 Lymph # (Auto) 0.3 K/mm3 (1.2-5.4) L 11/27/20 06:25 Henry # (Auto) 0.7 K/mm3 (0.0-0.8) 11/27/20 06:25 Eos # (Auto) 0.0 K/mm3 (0.0-0.4) 11/27/20 06:25 Baso # (Auto) 0.0 K/mm3 (0.0-0.1) 11/27/20 06:25 Add Manual Diff Complete 12/01/20 03:35 Total Counted 100 12/01/20 03:35 Seg Neutrophils % Farebox Repairer 12/01/20 03:35 Seg Neuts % (Manual) 95.0 % (40.0-70.0) H 12/01/20 03:35 Lymphocytes % (Manual) 3.0 % (13.4-35.0) L 12/01/20 03:35 Monocytes % (Manual) 2.0 % (0.0-7.3) 12/01/20 03:35 Nucleated RBC % Not Reportable 12/01/20 03:35 Seg Neutrophils # 12.7 K/mm3 (1.8-7.7) H 11/27/20 06:25 Seg Neutrophils # Man 12.7 K/mm3 (1.8-7.7) H 12/01/20 03:35 Band Neutrophils # 0.0 K/mm3 12/01/20 03:35 Lymphocytes # (Manual) 0.4 K/mm3 (1.2-5.4) L 12/01/20 03:35 Abs React Lymphs (Man) 0.0 K/mm3 12/01/20 03:35 Monocytes # (Manual) 0.3 K/mm3 (0.0-0.8) 12/01/20 03:35 Eosinophils # (Manual) 0.0 K/mm3 (0.0-0.4) 12/01/20 03:35 Basophils # (Manual) 0.0 K/mm3 (0.0-0.1) 12/01/20 03:35 Metamyelocytes # 0.0 K/mm3 12/01/20 03:35 Myelocytes # 0.0 K/mm3 12/01/20 03:35 Promyelocytes # 0.0 K/mm3 12/01/20 03:35 Blast Cells # 0.0 K/mm3 12/01/20 03:35 WBC Morphology Not Reportable 12/01/20 03:35 Hypersegmented Neuts Not Reportable 12/01/20 03:35 Hyposegmented Neuts Not Reportable 12/01/20 03:35 Hypogranular Neuts Not Reportable 12/01/20 03:35 Smudge Cells Not Reportable 12/01/20 03:35 Toxic Granulation Not Reportable 12/01/20 03:35 Toxic Vacuolation Not Reportable 12/01/20 03:35 Dohle Bodies Not Reportable 12/01/20 03:35 Pelger-Huet Anomaly Not Reportable 12/01/20 03:35 Tony Rods Not Reportable 12/01/20 03:35 Platelet Estimate P 12/01/20 03:35 Clumped Platelets Not Reportable 12/01/20 03:35 Plt Clumps, EDTA Not Reportable 12/01/20 03:35 Large Platelets Not Reportable 12/01/20 03:35 Giant Platelets Not Reportable 12/01/20 03:35 Platelet Satelliting Not Reportable 12/01/20 03:35 Plt Morphology Comment Not Reportable 12/01/20 03:35 RBC Morphology Not Reportable 12/01/20 03:35 Dimorphic RBCs Not Reportable 12/01/20 03:35 Polychromasia Not Reportable 12/01/20 03:35 Hypochromasia Not Reportable 12/01/20 03:35 Poikilocytosis Not Reportable 12/01/20 03:35 Anisocytosis Not Reportable 12/01/20 03:35 Microcytosis Not Reportable 12/01/20 03:35 Macrocytosis Not Reportable 12/01/20 03:35 Spherocytes Not Reportable 12/01/20 03:35 Pappenheimer Bodies Not Reportable 12/01/20 03:35 Sickle Cells Not Reportable 12/01/20 03:35 Target Cells Not Reportable 12/01/20 03:35 Tear Drop Cells Not Reportable 12/01/20 03:35 Ovalocytes Not Reportable 12/01/20 03:35 Helmet Cells Not Reportable 12/01/20 03:35 Cabrera-[place] Bodies Not Reportable 12/01/20 03:35 Cedar Rings Not Reportable 12/01/20 03:35 Henrry Cells Not Reportable 12/01/20 03:35 Bite Cells Not Reportable 12/01/20 03:35 Crenated Cell Not Reportable 12/01/20 03:35 Elliptocytes Not Reportable 12/01/20 03:35 Acanthocytes (Spur) Not Reportable 12/01/20 03:35 Rouleaux Not Reportable 12/01/20 03:35 Hemoglobin C Crystals Not Reportable 12/01/20 03:35 Schistocytes Not Reportable 12/01/20 03:35 Malaria parasites Not Reportable 12/01/20 03:35 Yovani Bodies Not Reportable 12/01/20 03:35 Hem Pathologist Commnt No 12/01/20 03:35 D-Dimer 926.11 ng/mlDDU (0-234) H 11/26/20 06:04 ABG pH 7.278 (7.320-7.450) L 12/01/20 02:14 POC ABG pCO2 78.1 mmHg (32.0-48.0) H 12/01/20 02:14 POC ABG pO2 79.5 mmHg (83-108) L 12/01/20 02:14 POC ABG HCO3 35.7 12/01/20 02:14 POC ABG Base Excess 6.7 12/01/20 02:14 ABG Hemoglobin 11.6 (12.0-17.5) L 12/01/20 02:14 ABG Oxyhemoglobin 84.6 (94-98) L 11/30/20 03:57 ABG Methemoglobin 0.3 (0.0-1.5) 11/30/20 03:57 ABG Sodium 134.5 mmol/L (136.0-145.0) L 12/01/20 02:14 ABG Potassium 4.6 mmol/L (3.40-4.50) H 12/01/20 02:14 ABG Chloride 101.0 mmol/L (98-107) 12/01/20 02:14 ABG Glucose 286 mg/dL (65-95) H 12/01/20 02:14 Carboxyhemoglobin 1.0 (0.5-1.5) 11/30/20 03:57 FiO2 100 12/01/20 02:14 Sodium 142 mmol/L (137-145) 12/01/20 03:35 Potassium 4.9 mmol/L (3.6-5.0) 12/01/20 03:35 Chloride 103.4 mmol/L (98-107) 12/01/20 03:35 Carbon Dioxide 35 mmol/L (22-30) H 12/01/20 03:35 Anion Gap 9 mmol/L 12/01/20 03:35 BUN 34 mg/dL (9-20) H 12/01/20 03:35 Creatinine 0.5 mg/dL (0.8-1.3) L 12/01/20 03:35 Estimated GFR > 60 ml/min 12/01/20 03:35 BUN/Creatinine Ratio 68 % 12/01/20 03:35 Glucose 279 mg/dL (75-100) H 12/01/20 03:35 POC Glucose 259 mg/dL (70-105) H 12/01/20 05:22 Hemoglobin A1c 11.7 % (4-6) H 11/16/20 05:29 Lactic Acid 2.60 mmol/L (0.7-2.0) H* 11/16/20 05:29 Calcium 7.6 mg/dL (8.4-10.2) L 12/01/20 03:35 Ferritin 778.8 ng/mL (30.0-300.0) H 11/26/20 04:00 Total Bilirubin 0.30 mg/dL (0.1-1.2) 12/01/20 03:35 AST 23 units/L (5-40) 12/01/20 03:35 ALT 63 units/L (7-56) H 12/01/20 03:35 Alkaline Phosphatase 108 units/L (35-129) 12/01/20 03:35 Lactate Dehydrogenase 288 units/L (91-180) H 11/26/20 04:00 Troponin T < 0.010 ng/mL (0.00-0.029) 11/22/20 Unknown C-Reactive Protein 1.40 mg/dL (0.00-1.30) H 11/26/20 04:00 NT-Pro-B Natriuret Pep 107.2 pg/mL (0-900) 11/17/20 10:21 Total Protein 4.8 g/dL (6.3-8.2) L 12/01/20 03:35 Albumin 2.1 g/dL (3.9-5) L 12/01/20 03:35 Albumin/Globulin Ratio 0.8 % 12/01/20 03:35 Triglycerides 124 mg/dL (2-149) 11/30/20 03:35 Procalcitonin 0.51 ng/mL (<0.15) 11/15/20 10:39 Arterial Blood Glucose 286 mg/dL (65-95) H 12/01/20 02:14 Arterial Blood Ionized Calcium 4.6 mg/dL (4.6-5.3) 12/01/20 02:14 Urine Color Faustina (Yellow) 11/16/20 01:45 Urine Turbidity Slightly-cloudy (Clear) 11/16/20 01:45 Urine pH 6.0 (5.0-7.0) 11/16/20 01:45 Ur Specific [place] 1.037 (1.003-1.030) H 11/16/20 01:45 Urine Protein 30 mg/dl mg/dL (Negative) 11/16/20 01:45 Urine Glucose (UA) >=500 mg/dL (Negative) 11/16/20 01:45 Urine Ketones 20 mg/dL (Negative) 11/16/20 01:45 Urine Blood Neg (Negative) 11/16/20 01:45 Urine Nitrite Neg (Negative) 11/16/20 01:45 Urine Bilirubin Neg (Negative) 11/16/20 01:45 Urine Urobilinogen 2.0 mg/dL (<2.0) 11/16/20 01:45 Ur Leukocyte Esterase Neg (Negative) 11/16/20 01:45 Urine WBC (Auto) 2.0 /HPF (0.0-6.0) 11/16/20 01:45 Urine RBC (Auto) 1.0 /HPF (0.0-6.0) 11/16/20 01:45 Urine Bacteria (Auto) 1+ /HPF (Negative) 11/16/20 01:45 Urine Mucus 3+ /HPF 11/16/20 01:45 Vancomycin Trough 4.0 ug/mL (5.0-20.0) L 11/29/20 15:40 Coronavirus (PCR) Positive (Negative) A 11/16/20 Unknown - Diagnostic Impressions Diagnostic Impressions: Echocardiogram 11/16/20 10:34 Transthoracic Echocardiogram Indication: Shortness of breath-COVID BP: 108/77 HR: 92 Conclusions *Global left ventricular systolic function is normal. *The estimated ejection fraction is 60-65%. *Mild to moderate concentric left ventricular hypertrophy is observed. *There is trace of mitral regurgitation. *There is mild to moderate tricuspid regurgitation. *There is evidence of mild pulmonary hypertension. *The right ventricular systolic pressure is calculated at 31 mmHg. Findings Left Ventricle: The left ventricular chamber size is normal. Mild to moderate concentric left ventricular hypertrophy is observed. Global left ventricular systolic function is normal. The estimated ejection fraction is 60-65%. Left Atrium: The left atrial chamber size is normal. Right Ventricle: The right ventricular cavity size is normal. The right ventricular global systolic function is normal. Right Atrium: The right atrial cavity size is normal. Aortic Valve: The aortic valve is trileaflet. There is no evidence of aortic regurgitation. There is no evidence of aortic stenosis. Mitral Valve: The mitral valve leaflets appear normal. There is trace of mitral regurgitation. There is no evidence of mitral stenosis. Tricuspid Valve: The tricuspid valve leaflets are normal. There is mild to moderate tricuspid regurgitation. The right ventricular systolic pressure is calculated at 31 mmHg. There is evidence of mild pulmonary hypertension. Pulmonic Valve: There is trace pulmonic regurgitation. Pericardium: There is no pericardial effusion. Aorta: There is no dilatation of the ascending aorta. There is no dilatation of the aortic root. Venous: The inferior vena cava appears normal in size. Measurements Chambers 2D Name Value Normal Range IVSd (2D) 0.81 cm (0.6 - 1.1) LVPWd (2D) 0.79 cm (0.6 - 1.1) LVIDd (2D) 4.22 cm (3.7 - 5.6) LVIDs (2D) 3.1 cm (2 - 3.8) LV FS (2D) 26.71 % - EF Teichholz (2D) 52.55 % - Ao root diameter (2D) 3.34 cm (2 - 3.7) Volumes/Mass Name Value Normal Range LA ESV SP 4CH (A/L) 10.87 ml - LA ESV SP 2CH (A/L) 18.74 ml - LA ESV BP (A/L) 16.38 ml - LA ESV BP (A/L) index 8.62 ml/m2 - LA ESV SP 4CH (MOD) 10.32 ml - LA ESV SP 2CH (MOD) 17.66 ml - LA ESV BP (MOD) 15.12 ml - LA ESV BP (MOD) index 7.96 ml/m2 - Diastolic/Systolic Function Name Value Normal Range MV E-wave Vmax 0.76 m/sec - MV deceleration time 133.63 msec - MV A-wave Vmax 1.1 m/sec - MV E:A ratio 0.69 ratio - Aortic Valve Name Value Normal Range AV Vmax 1.44 m/sec - AV VTI 22.94 cm - AV peak gradient 8.33 mmHg - AV mean gradient 4.73 mmHg - LVOT diameter 2.2 cm - LVOT Vmax 1.04 m/sec - LVOT VTI 18.88 cm - LVOT peak gradient 4.34 mmHg - LVOT mean gradient 2.31 mmHg - SV LVOT 72.05 ml - EVANGELISTA (continuity Vmax) 2.75 cm2 - EVANGELISTA (continuity VTI) 3.14 cm2 - Tricuspid Valve Name Value Normal Range TR Vmax 2.64 m/sec - TR peak gradient 28 mmHg - RAP 3 mmHg - RVSP 31 mmHg - Gupta/IV: Voiding Method Indwelling Catheter IV Catheter Type [Left Peripheral IV Antecubital] Active Medications - Current Medications Current Medications: Generic Name Dose Route Start Last Admin Trade Name Freq PRN Reason Stop Dose Admin Acetaminophen 650 mg 11/15/20 23:55 11/18/20 22:19 Acetaminophen 325 Mg Tab PO 650 mg Q4H PRN Administration Pain MILD(1-3)/Fever >100.5/BUTTS Lipase/Protease/Amylase 1 each 11/23/20 11:53 Lipase 10,500/Protease 25,000/Amylase 43,750 (Units) Dr Cap FEEDTUBE PRN PRN For Clogged Feeding Tube Famotidine 20 mg 11/22/20 22:00 12/01/20 09:30 Famotidine 20 Mg/2 Ml Inj IV 20 mg BID RAEANN Administration Fentanyl 50 mcg 11/21/20 21:53 Fentanyl 100 Mcg/2 Ml Inj IV Q10MIN PRN ANALGESIA Hydrophilic Ointment 1 applic 11/21/20 21:53 11/30/20 21:33 Lip Therapy Vaseline TP 1 applic Q2HR PRN Administration Dry Lips Fentanyl Citrate 2,000 mcg in 100 mls @ 3.625 mls/hr 11/21/20 22:00 11/30/20 23:22 Fentanyl Drip Premix IV 4 mcg/kg/hr TITR RAEANN 14.5 mls/hr Administration Protocol 1 MCG/KG/HR Midazolam HCl 100 mg/ Sodium 100 mls @ 2 mls/hr 11/21/20 22:00 12/01/20 04:07 Chloride IV 5 mg/hr TITR RAEANN 5 mls/hr Titration Protocol 2 MG/HR Norepinephrine 4 mg in 250 mls @ 7.5 mls/hr 11/22/20 17:00 Levophed Drip 4 Mg/Ns 250 Ml IV TITR RAEANN Protocol 2 MCG/MIN Propofol 1,000 mg in 100 mls @ 2.175 mls/hr 11/27/20 12:00 12/01/20 09:42 Diprivan 10 Mg/Ml IV 20 mcg/kg/min TITR RAEANN 8.7 mls/hr Administration Protocol 5 MCG/KG/MIN Vancomycin HCl 1,500 mg/ 530 mls @ 333.333 mls/hr 11/30/20 17:00 12/01/20 05:53 Sodium Chloride IV 333.333 mls/hr Q12H COUNT INCLUDES THE [facility] Administration Insulin Glargine 20 units 12/01/20 22:00 Insulin Glargine 100 Units/Ml SUB-Q 0800,2200 COUNT INCLUDES THE [facility] Insulin Human Lispro 0 unit 11/22/20 06:00 12/01/20 06:13 Insulin Lispro 100 Unit/Ml SUB-Q 6 unit Q6HR COUNT INCLUDES THE [facility] Administration Protocol Methylprednisolone Sodium Succinate 60 mg 11/20/20 12:00 12/01/20 05:53 Methylprednisolone Sod Succinate 125 Mg/2 Ml Inj IV 60 mg Q6HR COUNT INCLUDES THE [facility] Administration Metoclopramide HCl 10 mg 11/15/20 23:55 Metoclopramide 10 Mg/2 Ml Inj IV Q6H PRN Nausea And Vomiting Midazolam HCl 2 mg 11/21/20 21:53 Midazolam 2 Mg/2 Ml Inj IV Q10MIN PRN Sedation Multi-Ingred Cream/Lotion/Oil/Oint 1 applic 11/21/20 21:53 Mineral Oil/Petrolatum, White Ophth Oint 3.5 Gm OU Q4HR PRN Dry Eye(s) Ondansetron HCl 4 mg 11/15/20 23:55 Ondansetron 4 Mg/2 Ml Inj IV Q8H PRN Nausea And Vomiting Simple Syrup 15 ml 11/23/20 11:53 Simple Syrup 15 Ml FEEDTUBE PRN PRN Hypoglycemia Simple Syrup 30 ml 11/23/20 11:53 Simple Syrup 15 Ml FEEDTUBE PRN PRN Hypoglycemia Sodium Bicarbonate 325 mg 11/23/20 11:53 Sodium Bicarbonate 325 Mg Tab FEEDTUBE PRN PRN For Clogged Feeding Tube Sodium Chloride 10 ml 11/16/20 10:00 12/01/20 09:30 Sodium Chloride 0.9% 10 Ml Flush Syringe IV 10 ml BID RAEANN Administration Sodium Chloride 10 ml 11/15/20 23:55 Sodium Chloride 0.9% 10 Ml Flush Syringe IV PRN PRN LINE FLUSH Nutrition/Malnutrition Assess - Dietary Evaluation Nutrition/Malnutrition Findings: Nutrition Notes Start: 11/20/20 12:03 Freq: Status: Active Protocol: Document 11/26/20 10:59 KIT (Rec: 11/26/20 11:25 KIT [id number]) Co-Sign 11/26/20 10:59 NHALL Nutrition Notes Initial or Follow up Reassessment Current Diagnosis Diabetes,Sepsis,Respiratory Failure Other Pertinent Diagnosis Bilat pneu, COVID-19 (+) Current Diet Glucerna 1.2 at 100 ml/hr when not proned, 20 ml when proned Labs/Tests BUN 51 Cr 3.4 BG 189 Pertinent Medications Levophed Height 5 ft 6 in Weight 72.5 kg Usual Body Weight 80.5 kg [place] Body Weight (kg) 64.54 BMI 25.7 Weight Status Overweight Subjective/Other Information F/u TF tolerance. Pt coded blue this AM and TF on hold for now. Percent of energy/protein needs met: 0%/0% Burn Absent Trauma Absent GI Symptoms None Difficulty In Swallowing,Chewing Current % PO Negligible Minimum of two criteria Yes Energy Intake (severe) < or equal to 50% Estimated Energy Requirement > or equal to 5 days Interpretation of Weight Loss (severe) >2% in 1 week #3 Nutrition Diagnosis Inadequate oral intake Diagnosis Progress(for reassessment Continues documentation) #2 Nutrition Diagnosis Malnutrition Diagnosis Progress(for reassessment Continues documentation) #1 Nutrition Diagnosis Unintended weight loss Diagnosis Progress(for reassessment Continues documentation) Is patient on ventilator? Yes Is Patient Ambulatory and/or Out of Bed No REE-([facility]-confined to bed) 8437.004 Calculation Used for Recommendations [facility] Additional Notes Protein needs 1.2-2g/k-145g/day Fluid 1ml/kcal or per MD Nutrition Intervention Change Diet Order: Continue TF if medically able Nutrition Support: Supine (12h): Glucerna 1.2 at 100ml/hr with flush of 100 ml q4h. Prone (12h): Glucerna 1.2 at 20 ml/hr with flush of 50 ml q4h. Kcal 1,728 Protein (gm) 86 Fluid (mL) 1,159 Goal #1 TF tolerance Goal #2 Meet at least 75% of energy and protein needs via TF Anticipated Discharge Needs: Unknown at this time Follow-Up By: 12/01/20 Additional Comments F/u TF re-start, vent status, and proning regimen
--- NOTE | 2020-12-01 11:22 | Progress Note ---
Assessment and Plan 59-year-old male with 1. COVID PNA 2. VDRF 3. sepsis 4. Bilateral pneumothorax s/p bilateral chest tube placement CXR 12/01/2020: Satisfactory positioning of chest tubes. Tiny apical PTX b/l - unchanged. increased subq emphysema right side VENT: FIO2 90%, PEEP 18, TV: 350 RR: 30 Plan: 1. Vent management per ICU team 2. Continue b/l chest tubes - Right to -[id number] suction and Left to -[id number] suction 3. daily CXR 4. hold lovenox x 24 hours 5. No indication to place additional chest tubes. If chest tube becomes clogged or PTX worsening on CXR, then may consider placement of another tube. Discussed with Dr. German. Guarded prognosis. Thank you for this consultation. Please call with any questions or concerns. Evaluation and treatment of this patient was during the time of the national and state emergency arising from COVID19 coronavirus pandemic. Treatment and procedures performed meet the current and available best practice and guidelines for patient during the COVID pandemic. Subjective Date of service: 12/01/20 Narrative: Pt seen and examined. Had bleeding from skin at right chest tube insertion site overnight. Was reinforced by RN. PEEP up to 18 and O2sat up to 100% overnight -> now 90%. Objective Vital Signs - 12hr 11/30/20 11/30/20 11/30/20 23:27 23:30 23:32 Temperature 98.8 F Pulse Rate 80 79 Pulse Rate [ From Monitor] Respiratory 19 22 Rate Blood Pressure 128/68 128/74 O2 Sat by Pulse 94 94 Oximetry 11/30/20 11/30/20 12/01/20 23:45 23:55 00:00 Temperature Pulse Rate 89 70 71 Pulse Rate [ 77 From Monitor] Respiratory 16 14 14 Rate Blood Pressure 117/66 127/68 109/60 O2 Sat by Pulse 94 96 96 Oximetry 12/01/20 12/01/20 12/01/20 00:02 00:15 00:30 Temperature Pulse Rate 71 70 74 Pulse Rate [ From Monitor] Respiratory 16 18 Rate Blood Pressure 109/60 109/60 105/60 O2 Sat by Pulse 96 98 97 Oximetry 12/01/20 12/01/20 12/01/20 00:45 01:00 01:15 Temperature Pulse Rate 67 69 75 Pulse Rate [ From Monitor] Respiratory 13 18 16 Rate Blood Pressure 110/61 125/68 134/70 O2 Sat by Pulse 99 99 99 Oximetry 12/01/20 12/01/20 12/01/20 01:30 01:45 02:00 Temperature Pulse Rate 75 72 73 Pulse Rate [ From Monitor] Respiratory 23 9 L 18 Rate Blood Pressure 136/73 123/64 110/56 O2 Sat by Pulse 98 99 99 Oximetry 12/01/20 12/01/20 12/01/20 02:15 02:30 02:45 Temperature Pulse Rate 75 72 75 Pulse Rate [ From Monitor] Respiratory 19 13 18 Rate Blood Pressure 110/56 107/55 102/54 O2 Sat by Pulse 98 98 97 Oximetry 12/01/20 12/01/20 12/01/20 03:00 03:06 03:15 Temperature 98.9 F Pulse Rate 68 68 Pulse Rate [ From Monitor] Respiratory 15 13 Rate Blood Pressure 97/52 100/54 O2 Sat by Pulse 97 97 Oximetry 12/01/20 12/01/20 12/01/20 03:30 03:45 04:00 Temperature Pulse Rate 66 66 67 Pulse Rate [ 77 From Monitor] Respiratory 19 14 26 H Rate Blood Pressure 97/51 97/52 O2 Sat by Pulse 96 96 94 Oximetry 12/01/20 12/01/20 12/01/20 04:01 04:15 04:30 Temperature Pulse Rate 67 70 69 Pulse Rate [ From Monitor] Respiratory 30 H 30 H 22 Rate Blood Pressure 88/46 92/49 96/48 O2 Sat by Pulse 99 98 100 Oximetry 12/01/20 12/01/20 12/01/20 04:45 05:00 05:15 Temperature Pulse Rate 71 69 69 Pulse Rate [ From Monitor] Respiratory 30 H 30 H 30 H Rate Blood Pressure 92/54 88/47 93/48 O2 Sat by Pulse 98 100 100 Oximetry 12/01/20 12/01/20 12/01/20 05:30 05:45 06:00 Temperature Pulse Rate 68 67 66 Pulse Rate [ From Monitor] Respiratory 30 H 20 20 Rate Blood Pressure 92/48 89/49 96/49 O2 Sat by Pulse 100 100 100 Oximetry 12/01/20 12/01/20 12/01/20 06:15 06:30 06:45 Temperature Pulse Rate 67 67 67 Pulse Rate [ From Monitor] Respiratory 16 15 30 H Rate Blood Pressure 97/48 109/55 109/52 O2 Sat by Pulse 100 100 99 Oximetry 12/01/20 12/01/20 12/01/20 07:00 07:15 07:30 Temperature 97.8 F Pulse Rate 68 67 69 Pulse Rate [ From Monitor] Respiratory 26 H 30 H 30 H Rate Blood Pressure 103/52 102/54 100/51 O2 Sat by Pulse 100 99 99 Oximetry 12/01/20 12/01/20 12/01/20 07:45 08:00 08:04 Temperature 97 F L Pulse Rate 67 65 64 Pulse Rate [ From Monitor] Respiratory 30 H 15 Rate Blood Pressure 98/47 102/51 102/51 O2 Sat by Pulse 98 98 98 Oximetry 12/01/20 12/01/20 12/01/20 08:07 08:15 08:30 Temperature Pulse Rate 65 64 63 Pulse Rate [ From Monitor] Respiratory 28 H 31 H Rate Blood Pressure 96/49 104/56 O2 Sat by Pulse 96 96 Oximetry 12/01/20 12/01/20 12/01/20 08:41 08:45 09:00 Temperature Pulse Rate 62 65 Pulse Rate [ 62 From Monitor] Respiratory 18 22 21 Rate Blood Pressure 107/53 101/53 O2 Sat by Pulse 96 97 96 Oximetry - General physical appearance Narrative Exam: Gen.: Intubated, sedated. ENT: ET tube and OG tube in place. Trachea midline. Subcutaneous emphysema of b/l neck CV: S1, S2 present Respiratory: Bilateral chest tubes patent with minimal serosang drainage and no air leak. Left sided dressing with moderate serosang drainage - no active bleeding from skin. Right sided dressing saturated with sanguenous drainage. Dressing removed. There is venous oozing from the skin at the chest tube insert ion site. There is minimal clot and serosang drainage in the chest tube. Surgicel wrapped around chest tube and placed against the skin and pressure held. Hemostasis achieved and no additional bleeding seen. New occlusive dressing applied. B.L chest wall subq emphysema increased since yesterday. Extremities: Generalized edema - Labs 12/01/20 03:35 12/01/20 03:35 Diabetes panel 11/30/20 12/01/20 Range/Units 03:35 03:35 Sodium 142 (137-145) mmol/L Potassium 4.9 (3.6-5.0) mmol/L Chloride 103.4 (98-107) mmol/L Carbon Dioxide 35 H (22-30) mmol/L BUN 34 H (9-20) mg/dL Creatinine 0.5 L (0.8-1.3) mg/dL Glucose 279 H (75-100) mg/dL Calcium 7.6 L (8.4-10.2) mg/dL AST 23 (5-40) units/L ALT 63 H (7-56) units/L Alkaline Phosphatase 108 (35-129) units/L Total Protein 4.8 L (6.3-8.2) g/dL Albumin 2.1 L (3.9-5) g/dL Triglycerides 124 (2-149) mg/dL Calcium panel 12/01/20 Range/Units 03:35 Calcium 7.6 L (8.4-10.2) mg/dL Albumin 2.1 L (3.9-5) g/dL Pituitary panel 12/01/20 Range/Units 03:35 Sodium 142 (137-145) mmol/L Potassium 4.9 (3.6-5.0) mmol/L Chloride 103.4 (98-107) mmol/L Carbon Dioxide 35 H (22-30) mmol/L BUN 34 H (9-20) mg/dL Creatinine 0.5 L (0.8-1.3) mg/dL Glucose 279 H (75-100) mg/dL Calcium 7.6 L (8.4-10.2) mg/dL Adrenal panel 12/01/20 Range/Units 03:35 Sodium 142 (137-145) mmol/L Potassium 4.9 (3.6-5.0) mmol/L Chloride 103.4 (98-107) mmol/L Carbon Dioxide 35 H (22-30) mmol/L BUN 34 H (9-20) mg/dL Creatinine 0.5 L (0.8-1.3) mg/dL Glucose 279 H (75-100) mg/dL Calcium 7.6 L (8.4-10.2) mg/dL Total Bilirubin 0.30 (0.1-1.2) mg/dL AST 23 (5-40) units/L ALT 63 H (7-56) units/L Alkaline Phosphatase 108 (35-129) units/L Total Protein 4.8 L (6.3-8.2) g/dL Albumin 2.1 L (3.9-5) g/dL
--- NOTE | 2020-12-01 11:47 | XRay Report ---
XR chest 1V ap INDICATION / CLINICAL INFORMATION: change in status: SQ emphysema. COMPARISON: 11/30/2020 FINDINGS: SUPPORT DEVICES: Unchanged, to include bilateral thoracostomy tubes. HEART /PULMONARY VASCULATURE: Unchanged. LUNGS / PLEURA: Bilateral pulmonary airspace opacities are unchanged. Stable trace biapical pneumotho races. Additional findings: Subcutaneous emphysema is again noted, unchanged. IMPRESSION: No significant interval change. Signer Name: Luigi Camacho MD Signed: 12/01/2020 9:58 AM Workstation Name: [id number]
--- NOTE | 2020-12-01 11:50 | Progress Note ---
Assessment and Plan 59 y/o male with acute respiratory failure, abnormal CXR and abnormal lab studies. 12/01/20: Continue PEEP and FiO2 elevated to keep sats >88% and PaO2 >55. Small lung volumes and high PEEP. very very guarded prognosis. 11/30/20: Worsening hypoxemia. Chest tubes stable. Likely just worsening disease. Unable to prone now. Increase PEEP to 18 and FiO2 back up to 100. Continue 3 sedatives for RASS of -2. Obtain 12 lead to look at T waves as K was only 4.6 on yesterday. Guarded, guarded prognosis 11/29/20: Second chest tube in on yesterday. CXR is stable. ABG unchanged. Will likely increase PEEP now that chest tubes are in. No further paralytics. Still making good urine. Prognosis remains guarded. Will check chemistry to assess Potassium levels given peaked t's seen on monitor. 11/28/20: Second chest tube today. Once chest tube in, will likely increase PEEP to 18 and repeat gas about 2 hours after this. Continue paralytic today. No proning now that patient will have bilateral chest tubes. VEry guarded p rognosis. 11/27/20: Spoke with surgery who have agreed to evaluate and placed chest tube on either right or left side pending CXR reading. Will monitor for 36-48 hours and if no resolution, will need chest tube placed on opposite side as well. Once placed, will likely paralyze again but hold on proning for now. Guarded prognosis. 11/26/20: Paralytics are off. Continue current level of sedation. Will prone for 12 hours today and repeat ABG in the am. Continue lung protective strategy. Guarded prognosis. 11/25/20: Prone again to 16 hours, will prone at 12-12:30. Continue paralytics for 24 more hours. Discussed the idea of permissive hypercapnea again today and as long as pH is above 7.2 no changes should be made to TV and or RR without discussing with physician. Continue to monitor urine output, guarded prognosis. Hold on lasix therapy today. 11/24/20: Prone again today. Will try 48 hours of paralyzing the patient to see if this will help with oxygenation. Will speak with RT's about permissive hypercapnea and that pH's of 7.2 and greater are ok. Continue high doses st eroids. Prognosis is still very very guarded. If not improvement with paralytics, will attempt transfer. 11/23/20: Prone again today for 12 hours. Continue High Dose steroids. Hold on lasix given marginal BP's. Prognosis is very very guarded to poor. Will continue all supportive measures. If not able to wean from 100%, will attempt transfer for ECMO. 11/20/20: WIll change to solumedrol 60q6 today. Hold on lasix today. Given his increasing oxygen requirement, will likely end up intubated. OVerall prognosis is very poor. 11/19/20: lasix 40mg IV x1 today. Will speak with ID but may consider increasing steroids to see if this will help with oxygenation. Continue Remdesivir. Prognosis remains guarded. 11/18/20: Continue bipap, goal is to attempt to prevent prolong intubation for as long as possible. Lasix again today. Steroids and Remdesivir. Guarded Prognosis. 11/17/20: Continue bipap therapy. Monitor mental state. High risk for Intubation. Continue BID anticoagulation. Prone if able. BNP was elevated but not grossly elevated. Will still give lasix with hopes of achieving net negative state. STeroids and remdesivir. Overall prognosis is guarded, extremely guarded. 1. Pulm- Agree with concern for covid. Agree with empiric abx but procal is only mildly elevated. Await cultures. Continue bipap therapy for now but will need to monitor closely. [facility] has ordered CTA, but I spoke with pharmacy and we will empirically treat with BID lovenox therapy. COntinue empiric steroid therapy for COVID until studies back. Not sure that he will be able to prone on bipap therapy. Monitor volume status and run as dry as possible. 2. Renal-normal function but all electrolytes abnormal. HYponatremia and Hypochloremia volume up vs volume down. Sent BNP. Would suggest obtaning echo as well. Not sure what to make of elevated lactate unless that is from increas ed work of breathing or damage to other tissue unknown. May need to check LFT's and Coags as well. 3. Guarded Prognosis. CCT 31 minutes. Subjective Date of service: 12/01/20 Principal diagnosis: COVID-19 Interval history: Down to 90% now. Still on 18 of PEEP. SubQ emphysema is worse. Right chest tube bleeding around site but not in chest. Objective Vital Signs - 12hr 11/30/20 12/01/20 12/01/20 23:55 00:00 00:02 Temperature Pulse Rate 70 71 71 Pulse Rate [ 77 From Monitor] Respiratory 14 14 Rate Blood Pressure 127/68 109/60 109/60 O2 Sat by Pulse 96 96 96 Oximetry 12/01/20 12/01/20 12/01/20 00:15 00:30 00:45 Temperature Pulse Rate 70 74 67 Pulse Rate [ From Monitor] Respiratory 16 18 13 Rate Blood Pressure 109/60 105/60 110/61 O2 Sat by Pulse 98 97 99 Oximetry 12/01/20 12/01/20 12/01/20 01:00 01:15 01:30 Temperature Pulse Rate 69 75 75 Pulse Rate [ From Monitor] Respiratory 18 16 23 Rate Blood Pressure 125/68 134/70 136/73 O2 Sat by Pulse 99 99 98 Oximetry 12/01/20 12/01/20 12/01/20 01:45 02:00 02:15 Temperature Pulse Rate 72 73 75 Pulse Rate [ From Monitor] Respiratory 9 L 18 19 Rate Blood Pressure 123/64 110/56 110/56 O2 Sat by Pulse 99 99 98 Oximetry 12/01/20 12/01/20 12/01/20 02:30 02:45 03:00 Temperature Pulse Rate 72 75 68 Pulse Rate [ From Monitor] Respiratory 13 18 15 Rate Blood Pressure 107/55 102/54 97/52 O2 Sat by Pulse 98 97 97 Oximetry 12/01/20 12/01/20 12/01/20 03:06 03:15 03:30 Temperature 98.9 F Pulse Rate 68 66 Pulse Rate [ From Monitor] Respiratory 13 19 Rate Blood Pressure 100/54 97/51 O2 Sat by Pulse 97 96 Oximetry 12/01/20 12/01/20 12/01/20 03:45 04:00 04:01 Temperature Pulse Rate 66 67 67 Pulse Rate [ 77 From Monitor] Respiratory 14 26 H 30 H Rate Blood Pressure 97/52 88/46 O2 Sat by Pulse 96 94 99 Oximetry 12/01/20 12/01/20 12/01/20 04:15 04:30 04:45 Temperature Pulse Rate 70 69 71 Pulse Rate [ From Monitor] Respiratory 30 H 22 30 H Rate Blood Pressure 92/49 96/48 92/54 O2 Sat by Pulse 98 100 98 Oximetry 12/01/20 12/01/20 12/01/20 05:00 05:15 05:30 Temperature Pulse Rate 69 69 68 Pulse Rate [ From Monitor] Respiratory 30 H 30 H 30 H Rate Blood Pressure 88/47 93/48 92/48 O2 Sat by Pulse 100 100 100 Oximetry 12/01/20 12/01/20 12/01/20 05:45 06:00 06:15 Temperature Pulse Rate 67 66 67 Pulse Rate [ From Monitor] Respiratory 20 20 16 Rate Blood Pressure 89/49 96/49 97/48 O2 Sat by Pulse 100 100 100 Oximetry 12/01/20 12/01/20 12/01/20 06:30 06:45 07:00 Temperature 97.8 F Pulse Rate 67 67 68 Pulse Rate [ From Monitor] Respiratory 15 30 H 26 H Rate Blood Pressure 109/55 109/52 103/52 O2 Sat by Pulse 100 99 100 Oximetry 12/01/20 12/01/20 12/01/20 07:15 07:30 07:45 Temperature Pulse Rate 67 69 67 Pulse Rate [ From Monitor] Respiratory 30 H 30 H 30 H Rate Blood Pressure 102/54 100/51 98/47 O2 Sat by Pulse 99 99 98 Oximetry 12/01/20 12/01/20 12/01/20 08:00 08:04 08:07 Temperature 97 F L Pulse Rate 65 64 65 Pulse Rate [ From Monitor] Respiratory 15 Rate Blood Pressure 102/51 102/51 O2 Sat by Pulse 98 98 Oximetry 12/01/20 12/01/20 12/01/20 08:15 08:30 08:41 Temperature Pulse Rate 64 63 Pulse Rate [ 62 From Monitor] Respiratory 28 H 31 H 18 Rate Blood Pressure 96/49 104/56 O2 Sat by Pulse 96 96 96 Oximetry 12/01/20 12/01/20 12/01/20 08:45 09:00 11:34 Temperature Pulse Rate 62 65 63 Pulse Rate [ From Monitor] Respiratory 22 21 Rate Blood Pressure 107/53 101/53 113/62 O2 Sat by Pulse 97 96 98 Oximetry Constitutional: alert ENT: other (Now intubated) Ascultation: Bilateral: rales, rhonchi Percussion: Bilateral: not dull Cardiovascular: regular rate and rhythm Gastrointestinal: soft, non-tender CBC and BMP: 12/01/20 03:35 12/01/20 03:35 ABG, PT/INR, D-dimer: ABG ABG pH 7.278 (7.320-7.450) L 12/01/20 02:14 POC ABG pCO2 78.1 mmHg (32.0-48.0) H 12/01/20 02:14 POC ABG pO2 79.5 mmHg (83-108) L 12/01/20 02:14 POC ABG HCO3 35.7 12/01/20 02:14 PT/INR, D-dimer D-Dimer 926.11 ng/mlDDU (0-234) H 11/26/20 06:04 Abnormal lab findings: Abnormal Labs 11/15/20 11/15/20 11/15/20 10:39 10:39 10:39 WBC 14.3 H RBC 5.17 H Hgb Hct Lymph % (Auto) 7.8 L Mcpherson % (Auto) 7.6 H Lymph # (Auto) 1.1 L Mcpherson # (Auto) 1.1 H Baso # (Auto) Seg Neutrophils % 83.3 H Seg Neuts % (Manual) Lymphocytes % (Manual) Seg Neutrophils # 11.9 H Seg Neutrophils # Man Lymphocytes # (Manual) D-Dimer ABG pH POC ABG pCO2 POC ABG pO2 ABG Hemoglobin ABG Oxyhemoglobin ABG Sodium ABG Potassium ABG Chloride ABG Glucose Sodium 128 L Chloride 96.0 L Carbon Dioxide BUN Creatinine 0.7 L Glucose 238 H POC Glucose Hemoglobin A1c Lactic Acid 4.10 H* Calcium 7.0 L Ferritin Total Bilirubin 1.40 H AST 49 H ALT 70 H Alkaline Phosphatase Lactate Dehydrogenase 663 H C-Reactive Protein 19.80 H Total Protein Albumin 2.9 L Arterial Blood Glucose Arterial Blood Ionized Calcium Ur Specific [place] Vancomycin Trough Coronavirus (PCR) 11/15/20 11/15/20 11/15/20 10:39 10:39 11:20 WBC RBC Hgb Hct Lymph % (Auto) [place]son % (Auto) Lymph # (Auto) Mc[place]son # (Auto) Baso # (Auto) Seg Neutrophils % Seg Neuts % (Manual) Lymphocytes % (Manual) Seg Neutrophils # Seg Neutrophils # Man Lymphocytes # (Manual) D-Dimer > 76718 H ABG pH POC ABG pCO2 29.9 L POC ABG pO2 137.3 H ABG Hemoglobin ABG Oxyhemoglobin ABG Sodium 126.5 L ABG Potassium ABG Chloride ABG Glucose 248 H Sodium Chloride Carbon Dioxide BUN Creatinine Glucose POC Glucose Hemoglobin A1c Lactic Acid Calcium Ferritin 672.8 H Total Bilirubin AST ALT Alkaline Phosphatase Lactate Dehydrogenase C-Reactive Protein Total Protein Albumin Arterial Blood Glucose 248 H Arterial Blood Ionized Calcium 4.1 L Ur Specific [place] Vancomycin Trough Coronavirus (PCR) 11/15/20 11/15/20 11/16/20 13:41 23:41 01:45 WBC RBC Hgb Hct Lymph % (Auto) [place] % (Auto) Lymph # (Auto) [place] # (Auto) Baso # (Auto) Seg Neutrophils % Seg Neuts % (Manual) Lymphocytes % (Manual) Seg Neutrophils # Seg Neutrophils # Man Lymphocytes # (Manual) D-Dimer ABG pH POC ABG pCO2 POC ABG pO2 ABG Hemoglobin ABG Oxyhemoglobin ABG Sodium ABG Potassium ABG Chloride ABG Glucose Sodium Chloride Carbon Dioxide BUN Creatinine Glucose POC Glucose 284 H Hemoglobin A1c Lactic Acid 2.30 H* Calcium Ferritin Total Bilirubin AST ALT Alkaline Phosphatase Lactate Dehydrogenase C-Reactive Protein Total Protein Albumin Arterial Blood Glucose Arterial Blood Ionized Calcium Ur Specific [place] 1.037 H Vancomycin Trough Coronavirus (PCR) 11/16/20 11/16/20 11/16/20 05:29 05:29 05:29 WBC 12.9 H RBC Hgb Hct Lymph % (Auto) 4.5 L [place] % (Auto) Lymph # (Auto) 0.6 L [place] # (Auto) Baso # (Auto) 0.2 H Seg Neutrophils % 89.8 H Seg Neuts % (Manual) Lymphocytes % (Manual) Seg Neutrophils # 11.5 H Seg Neutrophils # Man Lymphocytes # (Manual) D-Dimer ABG pH POC ABG pCO2 POC ABG pO2 ABG Hemoglobin ABG Oxyhemoglobin ABG Sodium ABG Potassium ABG Chloride ABG Glucose Sodium 131 L Chloride Carbon Dioxide 21 L BUN 23 H Creatinine 0.6 L Glucose 342 H POC Glucose Hemoglobin A1c Lactic Acid 2.60 H* Calcium 7.0 L Ferritin Total Bilirubin AST ALT Alkaline Phosphatase Lactate Dehydrogenase C-Reactive Protein Total Protein Albumin 2.4 L Arterial Blood Glucose Arterial Blood Ionized Calcium Ur Specific [place] Vancomycin Trough Coronavirus (PCR) 11/16/20 11/16/20 11/16/20 05:29 08:11 12:11 WBC RBC Hgb Hct Lymph % (Auto) [place] % (Auto) Lymph # (Auto) [place] # (Auto) Baso # (Auto) Seg Neutrophils % Seg Neuts % (Manual) Lymphocytes % (Manual) Seg Neutrophils # Seg Neutrophils # Man Lymphocytes # (Manual) D-Dimer ABG pH POC ABG pCO2 POC ABG pO2 ABG Hemoglobin ABG Oxyhemoglobin ABG Sodium ABG Potassium ABG Chloride ABG Glucose Sodium Chloride Carbon Dioxide BUN Creatinine Glucose POC Glucose 329 H 320 H Hemoglobin A1c 11.7 H Lactic Acid Calcium Ferritin Total Bilirubin AST ALT Alkaline Phosphatase Lactate Dehydrogenase C-Reactive Protein Total Protein Albumin Arterial Blood Glucose Arterial Blood Ionized Calcium Ur Specific [place] Vancomycin Trough Coronavirus (PCR) 11/16/20 11/16/20 11/16/20 16:13 21:29 Unknown WBC RBC Hgb Hct Lymph % (Auto) [place] % (Auto) Lymph # (Auto) [place] # (Auto) Baso # (Auto) Seg Neutrophils % Seg Neuts % (Manual) Lymphocytes % (Manual) Seg Neutrophils # Seg Neutrophils # Man Lymphocytes # (Manual) D-Dimer ABG pH POC ABG pCO2 POC ABG pO2 ABG Hemoglobin ABG Oxyhemoglobin ABG Sodium ABG Potassium ABG Chloride ABG Glucose Sodium Chloride Carbon Dioxide BUN Creatinine Glucose POC Glucose 257 H 376 H Hemoglobin A1c Lactic Acid Calcium Ferritin Total Bilirubin AST ALT Alkaline Phosphatase Lactate Dehydrogenase C-Reactive Protein Total Protein Albumin Arterial Blood Glucose Arterial Blood Ionized Calcium Ur Specific [place] Vancomycin Trough Coronavirus (PCR) Positive A 11/17/20 11/17/20 11/17/20 07:42 12:07 17:25 WBC RBC Hgb Hct Lymph % (Auto) [place] % (Auto) Lymph # (Auto) [place] # (Auto) Baso # (Auto) Seg Neutrophils % Seg Neuts % (Manual) Lymphocytes % (Manual) Seg Neutrophils # Seg Neutrophils # Man Lymphocytes # (Manual) D-Dimer ABG pH POC ABG pCO2 POC ABG pO2 ABG Hemoglobin ABG Oxyhemoglobin ABG Sodium ABG Potassium ABG Chloride ABG Glucose Sodium Chloride Carbon Dioxide BUN Creatinine Glucose POC Glucose 231 H 380 H 302 H Hemoglobin A1c Lactic Acid Calcium Ferritin Total Bilirubin AST ALT Alkaline Phosphatase Lactate Dehydrogenase C-Reactive Protein Total Protein Albumin Arterial Blood Glucose Arterial Blood Ionized Calcium Ur Specific [place] Vancomycin Trough Coronavirus (PCR) 11/17/20 11/18/20 11/18/20 21:53 04:25 07:45 WBC RBC Hgb Hct Lymph % (Auto) [place] % (Auto) Lymph # (Auto) [place] # (Auto) Baso # (Auto) Seg Neutrophils % Seg Neuts % (Manual) Lymphocytes % (Manual) Seg Neutrophils # Seg Neutrophils # Man Lymphocytes # (Manual) D-Dimer ABG pH POC ABG pCO2 POC ABG pO2 ABG Hemoglobin ABG Oxyhemoglobin ABG Sodium ABG Potassium ABG Chloride ABG Glucose Sodium 136 L Chloride Carbon Dioxide BUN 24 H Creatinine 0.6 L Glucose 212 H POC Glucose 293 H 216 H Hemoglobin A1c Lactic Acid Calcium 7.4 L Ferritin Total Bilirubin AST 41 H ALT Alkaline Phosphatase 142 H Lactate Dehydrogenase C-Reactive Protein Total Protein Albumin 2.3 L Arterial Blood Glucose Arterial Blood Ionized Calcium Ur Specific [place] Vancomycin Trough Coronavirus (PCR) 11/18/20 11/18/20 11/18/20 12:28 15:58 21:37 WBC RBC Hgb Hct Lymph % (Auto) [place] % (Auto) Lymph # (Auto) [place] # (Auto) Baso # (Auto) Seg Neutrophils % Seg Neuts % (Manual) Lymphocytes % (Manual) Seg Neutrophils # Seg Neutrophils # Man Lymphocytes # (Manual) D-Dimer ABG pH POC ABG pCO2 POC ABG pO2 ABG Hemoglobin ABG Oxyhemoglobin ABG Sodium ABG Potassium ABG Chloride ABG Glucose Sodium Chloride Carbon Dioxide BUN Creatinine Glucose POC Glucose 165 H 220 H 311 H Hemoglobin A1c Lactic Acid Calcium Ferritin Total Bilirubin AST ALT Alkaline Phosphatase Lactate Dehydrogenase C-Reactive Protein Total Protein Albumin Arterial Blood Glucose Arterial Blood Ionized Calcium Ur Specific [place] Vancomycin Trough Coronavirus (PCR) 11/19/20 11/19/20 11/19/20 05:35 07:40 12:39 WBC RBC Hgb Hct Lymph % (Auto) [place] % (Auto) Lymph # (Auto) [place] # (Auto) Baso # (Auto) Seg Neutrophils % Seg Neuts % (Manual) Lymphocytes % (Manual) Seg Neutrophils # Seg Neutrophils # Man Lymphocytes # (Manual) D-Dimer ABG pH POC ABG pCO2 POC ABG pO2 ABG Hemoglobin ABG Oxyhemoglobin ABG Sodium ABG Potassium ABG Chloride ABG Glucose Sodium 132 L Chloride Carbon Dioxide BUN 25 H Creatinine 0.5 L Glucose 179 H POC Glucose 149 H 306 H Hemoglobin A1c Lactic Acid Calcium 7.5 L Ferritin Total Bilirubin AST ALT Alkaline Phosphatase 139 H Lactate Dehydrogenase C-Reactive Protein Total Protein Albumin 2.4 L Arterial Blood Glucose Arterial Blood Ionized Calcium Ur Specific [place] Vancomycin Trough Coronavirus (PCR) 11/19/20 11/19/20 11/20/20 16:17 21:25 08:30 WBC RBC Hgb Hct Lymph % (Auto) [place] % (Auto) Lymph # (Auto) [place] # (Auto) Baso # (Auto) Seg Neutrophils % Seg Neuts % (Manual) Lymphocytes % (Manual) Seg Neutrophils # Seg Neutrophils # Man Lymphocytes # (Manual) D-Dimer ABG pH POC ABG pCO2 POC ABG pO2 ABG Hemoglobin ABG Oxyhemoglobin ABG Sodium ABG Potassium ABG Chloride ABG Glucose Sodium Chloride Carbon Dioxide BUN Creatinine Glucose POC Glucose 364 H 347 H 141 H Hemoglobin A1c Lactic Acid Calcium Ferritin Total Bilirubin AST ALT Alkaline Phosphatase Lactate Dehydrogenase C-Reactive Protein Total Protein Albumin Arterial Blood Glucose Arterial Blood Ionized Calcium Ur Specific [place] Vancomycin Trough Coronavirus (PCR) 11/20/20 11/20/20 11/20/20 08:50 11:32 16:19 WBC RBC Hgb Hct Lymph % (Auto) [place] % (Auto) Lymph # (Auto) [place] # (Auto) Baso # (Auto) Seg Neutrophils % Seg Neuts % (Manual) Lymphocytes % (Manual) Seg Neutrophils # Seg Neutrophils # Man Lymphocytes # (Manual) D-Dimer ABG pH POC ABG pCO2 POC ABG pO2 ABG Hemoglobin ABG Oxyhemoglobin ABG Sodium ABG Potassium ABG Chloride ABG Glucose Sodium 132 L Chloride 97.6 L Carbon Dioxide BUN 26 H Creatinine 0.5 L Glucose 201 H POC Glucose 296 H 327 H Hemoglobin A1c Lactic Acid Calcium 7.9 L Ferritin Total Bilirubin AST ALT Alkaline Phosphatase 137 H Lactate Dehydrogenase C-Reactive Protein Total Protein Albumin 2.6 L Arterial Blood Glucose Arterial Blood Ionized Calcium Ur Specific [place] Vancomycin Trough Coronavirus (PCR) 11/20/20 11/21/20 11/21/20 22:09 07:59 13:51 WBC RBC Hgb Hct Lymph % (Auto) [place] % (Auto) Lymph # (Auto) [place] # (Auto) Baso # (Auto) Seg Neutrophils % Seg Neuts % (Manual) Lymphocytes % (Manual) Seg Neutrophils # Seg Neutrophils # Man Lymphocytes # (Manual) D-Dimer ABG pH POC ABG pCO2 POC ABG pO2 ABG Hemoglobin ABG Oxyhemoglobin ABG Sodium ABG Potassium ABG Chloride ABG Glucose Sodium Chloride Carbon Dioxide BUN Creatinine Glucose POC Glucose 311 H 218 H 304 H Hemoglobin A1c Lactic Acid Calcium Ferritin Total Bilirubin AST ALT Alkaline Phosphatase Lactate Dehydrogenase C-Reactive Protein Total Protein Albumin Arterial Blood Glucose Arterial Blood Ionized Calcium Ur Specific [place] Vancomycin Trough Coronavirus (PCR) 11/21/20 11/21/20 11/21/20 16:09 21:34 23:00 WBC RBC Hgb Hct Lymph % (Auto) [place] % (Auto) Lymph # (Auto) [place] # (Auto) Baso # (Auto) Seg Neutrophils % Seg Neuts % (Manual) Lymphocytes % (Manual) Seg Neutrophils # Seg Neutrophils # Man Lymphocytes # (Manual) D-Dimer ABG pH 7.206 L POC ABG pCO2 59.3 H POC ABG pO2 76.7 L ABG Hemoglobin ABG Oxyhemoglobin ABG Sodium 133.1 L ABG Potassium ABG Chloride ABG Glucose 320 H Sodium Chloride Carbon Dioxide BUN Creatinine Glucose POC Glucose 239 H 279 H Hemoglobin A1c Lactic Acid Calcium Ferritin Total Bilirubin AST ALT Alkaline Phosphatase Lactate Dehydrogenase C-Reactive Protein Total Protein Albumin Arterial Blood Glucose 320 H Arterial Blood Ionized Calcium Ur Specific [place] Vancomycin Trough Coronavirus (PCR) 11/22/20 11/22/20 11/22/20 04:52 04:52 04:52 WBC RBC Hgb Hct Lymph % (Auto) [place] % (Auto) Lymph # (Auto) [place] # (Auto) Baso # (Auto) Seg Neutrophils % Seg Neuts % (Manual) Lymphocytes % (Manual) Seg Neutrophils # Seg Neutrophils # Man Lymphocytes # (Manual) D-Dimer 1858.36 H ABG pH POC ABG pCO2 POC ABG pO2 ABG Hemoglobin ABG Oxyhemoglobin ABG Sodium ABG Potassium ABG Chloride ABG Glucose Sodium Chloride Carbon Dioxide BUN Creatinine Glucose POC Glucose Hemoglobin A1c Lactic Acid Calcium Ferritin 734.2 H Total Bilirubin AST ALT Alkaline Phosphatase Lactate Dehydrogenase 404 H C-Reactive Protein 2.80 H Total Protein Albumin Arterial Blood Glucose Arterial Blood Ionized Calcium Ur Specific [place] Vancomycin Trough Coronavirus (PCR) 11/22/20 11/22/20 11/22/20 05:12 05:39 11:50 WBC RBC Hgb Hct Lymph % (Auto) [place] % (Auto) Lymph # (Auto) [place] # (Auto) Baso # (Auto) Seg Neutrophils % Seg Neuts % (Manual) Lymphocytes % (Manual) Seg Neutrophils # Seg Neutrophils # Man Lymphocytes # (Manual) D-Dimer ABG pH POC ABG pCO2 POC ABG pO2 51.0 L ABG Hemoglobin ABG Oxyhemoglobin ABG Sodium 131.2 L ABG Potassium 4.6 H ABG Chloride ABG Glucose 317 H Sodium Chloride Carbon Dioxide BUN Creatinine Glucose POC Glucose 340 H 417 H Hemoglobin A1c Lactic Acid Calcium Ferritin Total Bilirubin AST ALT Alkaline Phosphatase Lactate Dehydrogenase C-Reactive Protein Total Protein Albumin Arterial Blood Glucose 317 H Arterial Blood Ionized Calcium 4.4 L Ur Specific [place] Vancomycin Trough Coronavirus (PCR) 11/22/20 11/22/20 11/22/20 12:22 12:22 17:10 WBC 14.4 H RBC Hgb Hct Lymph % (Auto) [place] % (Auto) Lymph # (Auto) [place]son # (Auto) Baso # (Auto) Seg Neutrophils % Seg Neuts % (Manual) 98.0 H Lymphocytes % (Manual) Seg Neutrophils # Seg Neutrophils # Man 14.1 H Lymphocytes # (Manual) 0.0 L D-Dimer ABG pH POC ABG pCO2 POC ABG pO2 ABG Hemoglobin ABG Oxyhemoglobin ABG Sodium ABG Potassium ABG Chloride ABG Glucose Sodium 132 L Chloride Carbon Dioxide BUN 36 H Creatinine 0.6 L Glucose 219 H POC Glucose 157 H Hemoglobin A1c Lactic Acid Calcium 7.2 L Ferritin Total Bilirubin AST ALT Alkaline Phosphatase Lactate Dehydrogenase C-Reactive Protein Total Protein Albumin Arterial Blood Glucose Arterial Blood Ionized Calcium Ur Specific [place] Vancomycin Trough Coronavirus (PCR) 11/22/20 11/22/20 11/22/20 18:33 21:44 23:47 WBC RBC Hgb Hct Lymph % (Auto) [place] % (Auto) Lymph # (Auto) [place] # (Auto) Baso # (Auto) Seg Neutrophils % Seg Neuts % (Manual) Lymphocytes % (Manual) Seg Neutrophils # Seg Neutrophils # Man Lymphocytes # (Manual) D-Dimer ABG pH POC ABG pCO2 POC ABG pO2 60.8 L ABG Hemoglobin ABG Oxyhemoglobin 88.1 L ABG Sodium 135.1 L ABG Potassium ABG Chloride ABG Glucose 141 H Sodium Chloride Carbon Dioxide BUN Creatinine Glucose POC Glucose 117 H 123 H Hemoglobin A1c Lactic Acid Calcium Ferritin Total Bilirubin AST ALT Alkaline Phosphatase Lactate Dehydrogenase C-Reactive Protein Total Protein Albumin Arterial Blood Glucose 141 H Arterial Blood Ionized Calcium Ur Specific [place] Vancomycin Trough Coronavirus (PCR) 11/23/20 11/23/20 11/23/20 04:00 04:00 05:23 WBC 14.4 H RBC Hgb Hct Lymph % (Auto) [place] % (Auto) Lymph # (Auto) [place] # (Auto) Baso # (Auto) Seg Neutrophils % Seg Neuts % (Manual) Lymphocytes % (Manual) Seg Neutrophils # Seg Neutrophils # Man Lymphocytes # (Manual) D-Dimer ABG pH POC ABG pCO2 POC ABG pO2 ABG Hemoglobin ABG Oxyhemoglobin ABG Sodium ABG Potassium ABG Chloride ABG Glucose Sodium 136 L Chloride Carbon Dioxide BUN 33 H Creatinine 0.6 L Glucose 115 H POC Glucose 173 H Hemoglobin A1c Lactic Acid Calcium 7.1 L Ferritin Total Bilirubin AST 64 H ALT 75 H Alkaline Phosphatase Lactate Dehydrogenase C-Reactive Protein Total Protein 5.9 L D Albumin 2.4 L Arterial Blood Glucose Arterial Blood Ionized Calcium Ur Specific [place] Vancomycin Trough Coronavirus (PCR) 11/23/20 11/23/20 11/23/20 05:40 11:27 17:10 WBC RBC Hgb Hct Lymph % (Auto) [place] % (Auto) Lymph # (Auto) [place] # (Auto) Baso # (Auto) Seg Neutrophils % Seg Neuts % (Manual) Lymphocytes % (Manual) Seg Neutrophils # Seg Neutrophils # Man Lymphocytes # (Manual) D-Dimer ABG pH POC ABG pCO2 POC ABG pO2 56.5 L ABG Hemoglobin ABG Oxyhemoglobin ABG Sodium ABG Potassium ABG Chloride 109.0 H ABG Glucose 114 H Sodium Chloride Carbon Dioxide BUN Creatinine Glucose POC Glucose 114 H 136 H Hemoglobin A1c Lactic Acid Calcium Ferritin Total Bilirubin AST ALT Alkaline Phosphatase Lactate Dehydrogenase C-Reactive Protein Total Protein Albumin Arterial Blood Glucose 114 H Arterial Blood Ionized Calcium 4.5 L Ur Specific [place] Vancomycin Trough Coronavirus (PCR) 11/24/20 11/24/20 11/24/20 05:14 05:14 05:14 WBC RBC Hgb Hct Lymph % (Auto) [place] % (Auto) Lymph # (Auto) [place] # (Auto) Baso # (Auto) Seg Neutrophils % Seg Neuts % (Manual) Lymphocytes % (Manual) Seg Neutrophils # Seg Neutrophils # Man Lymphocytes # (Manual) D-Dimer 1433.39 H ABG pH POC ABG pCO2 POC ABG pO2 ABG Hemoglobin ABG Oxyhemoglobin ABG Sodium ABG Potassium ABG Chloride ABG Glucose Sodium Chloride Carbon Dioxide BUN Creatinine Glucose POC Glucose Hemoglobin A1c Lactic Acid Calcium Ferritin 997.5 H Total Bilirubin AST ALT Alkaline Phosphatase Lactate Dehydrogenase 463 H C-Reactive Protein Total Protein Albumin Arterial Blood Glucose Arterial Blood Ionized Calcium Ur Specific [place] Vancomycin Trough Coronavirus (PCR) 11/24/20 11/24/20 11/24/20 05:31 05:36 12:05 WBC RBC Hgb Hct Lymph % (Auto) [place]son % (Auto) Lymph # (Auto) [place]son # (Auto) Baso # (Auto) Seg Neutrophils % Seg Neuts % (Manual) Lymphocytes % (Manual) Seg Neutrophils # Seg Neutrophils # Man Lymphocytes # (Manual) D-Dimer ABG pH POC ABG pCO2 POC ABG pO2 57.2 L ABG Hemoglobin ABG Oxyhemoglobin ABG Sodium ABG Potassium ABG Chloride ABG Glucose 180 H Sodium Chloride Carbon Dioxide BUN Creatinine Glucose POC Glucose 199 H 143 H Hemoglobin A1c Lactic Acid Calcium Ferritin Total Bilirubin AST ALT Alkaline Phosphatase Lactate Dehydrogenase C-Reactive Protein Total Protein Albumin Arterial Blood Glucose 180 H Arterial Blood Ionized Calcium 4.5 L Ur Specific [place] Vancomycin Trough Coronavirus (PCR) 11/24/20 11/24/20 11/24/20 12:14 17:47 23:47 WBC RBC Hgb Hct Lymph % (Auto) [place]son % (Auto) Lymph # (Auto) [place] # (Auto) Baso # (Auto) Seg Neutrophils % Seg Neuts % (Manual) Lymphocytes % (Manual) Seg Neutrophils # Seg Neutrophils # Man Lymphocytes # (Manual) D-Dimer ABG pH 7.261 L POC ABG pCO2 59.7 H POC ABG pO2 75.7 L ABG Hemoglobin ABG Oxyhemoglobin 92.5 L ABG Sodium ABG Potassium ABG Chloride 108.0 H ABG Glucose 150 H Sodium Chloride Carbon Dioxide BUN Creatinine Glucose POC Glucose 223 H 179 H Hemoglobin A1c Lactic Acid Calcium Ferritin Total Bilirubin AST ALT Alkaline Phosphatase Lactate Dehydrogenase C-Reactive Protein Total Protein Albumin Arterial Blood Glucose 150 H Arterial Blood Ionized Calcium Ur Specific [place] Vancomycin Trough Coronavirus (PCR) 11/25/20 11/25/20 11/25/20 03:29 05:07 05:15 WBC 13.9 H RBC Hgb Hct Lymph % (Auto) [place] % (Auto) Lymph # (Auto) [place] # (Auto) Baso # (Auto) Seg Neutrophils % Seg Neuts % (Manual) 97.0 H Lymphocytes % (Manual) Seg Neutrophils # Seg Neutrophils # Man 13.5 H Lymphocytes # (Manual) 0.0 L D-Dimer ABG pH 7.272 L POC ABG pCO2 69.0 H POC ABG pO2 132.9 H ABG Hemoglobin ABG Oxyhemoglobin ABG Sodium ABG Potassium ABG Chloride ABG Glucose 174 H Sodium Chloride Carbon Dioxide BUN Creatinine Glucose POC Glucose 168 H Hemoglobin A1c Lactic Acid Calcium Ferritin Total Bilirubin AST ALT Alkaline Phosphatase Lactate Dehydrogenase C-Reactive Protein Total Protein Albumin Arterial Blood Glucose 174 H Arterial Blood Ionized Calcium Ur Specific [place] Vancomycin Trough Coronavirus (PCR) 11/25/20 11/25/20 11/25/20 05:15 11:25 17:35 WBC RBC Hgb Hct Lymph % (Auto) [place] % (Auto) Lymph # (Auto) [place] # (Auto) Baso # (Auto) Seg Neutrophils % Seg Neuts % (Manual) Lymphocytes % (Manual) Seg Neutrophils # Seg Neutrophils # Man Lymphocytes # (Manual) D-Dimer ABG pH POC ABG pCO2 POC ABG pO2 ABG Hemoglobin ABG Oxyhemoglobin ABG Sodium ABG Potassium ABG Chloride ABG Glucose Sodium Chloride Carbon Dioxide BUN 29 H Creatinine 0.5 L Glucose 161 H POC Glucose 224 H 228 H Hemoglobin A1c Lactic Acid Calcium 7.8 L Ferritin Total Bilirubin AST 89 H ALT 129 H Alkaline Phosphatase Lactate Dehydrogenase C-Reactive Protein Total Protein 5.8 L Albumin 2.5 L Arterial Blood Glucose Arterial Blood Ionized Calcium Ur Specific [place] Vancomycin Trough Coronavirus (PCR) 11/25/20 11/25/20 11/26/20 20:45 23:28 04:00 WBC RBC Hgb Hct Lymph % (Auto) [place] % (Auto) Lymph # (Auto) [place] # (Auto) Baso # (Auto) Seg Neutrophils % Seg Neuts % (Manual) Lymphocytes % (Manual) Seg Neutrophils # Seg Neutrophils # Man Lymphocytes # (Manual) D-Dimer ABG pH POC ABG pCO2 POC ABG pO2 ABG Hemoglobin ABG Oxyhemoglobin ABG Sodium ABG Potassium ABG Chloride ABG Glucose Sodium Chloride Carbon Dioxide BUN Creatinine Glucose POC Glucose 177 H 243 H Hemoglobin A1c Lactic Acid Calcium Ferritin 778.8 H Total Bilirubin AST ALT Alkaline Phosphatase Lactate Dehydrogenase C-Reactive Protein Total Protein Albumin Arterial Blood Glucose Arterial Blood Ionized Calcium Ur Specific [place] Vancomycin Trough Coronavirus (PCR) 11/26/20 11/26/20 11/26/20 04:00 05:34 06:04 WBC RBC Hgb Hct Lymph % (Auto) [place] % (Auto) Lymph # (Auto) [place] # (Auto) Baso # (Auto) Seg Neutrophils % Seg Neuts % (Manual) Lymphocytes % (Manual) Seg Neutrophils # Seg Neutrophils # Man Lymphocytes # (Manual) D-Dimer 926.11 H ABG pH POC ABG pCO2 POC ABG pO2 ABG Hemoglobin ABG Oxyhemoglobin ABG Sodium ABG Potassium ABG Chloride ABG Glucose Sodium Chloride Carbon Dioxide 39 H D BUN 30 H Creatinine 0.5 L Glucose 193 H POC Glucose 178 H Hemoglobin A1c Lactic Acid Calcium 7.7 L Ferritin Total Bilirubin AST 65 H ALT 132 H Alkaline Phosphatase Lactate Dehydrogenase 288 H C-Reactive Protein 1.40 H Total Protein 5.7 L Albumin 2.4 L Arterial Blood Glucose Arterial Blood Ionized Calcium Ur Specific [place] Vancomycin Trough Coronavirus (PCR) 11/26/20 11/26/20 11/26/20 06:04 08:47 11:20 WBC 12.4 H RBC Hgb Hct Lymph % (Auto) [place] % (Auto) Lymph # (Auto) [place] # (Auto) Baso # (Auto) Seg Neutrophils % Seg Neuts % (Manual) 98.0 H Lymphocytes % (Manual) 1.0 L Seg Neutrophils # Seg Neutrophils # Man 12.2 H Lymphocytes # (Manual) 0.1 L D-Dimer ABG pH POC ABG pCO2 75.2 H POC ABG pO2 61.9 L ABG Hemoglobin ABG Oxyhemoglobin 90.3 L ABG Sodium ABG Potassium ABG Chloride ABG Glucose 243 H Sodium Chloride Carbon Dioxide BUN Creatinine Glucose POC Glucose 255 H Hemoglobin A1c Lactic Acid Calcium Ferritin Total Bilirubin AST ALT Alkaline Phosphatase Lactate Dehydrogenase C-Reactive Protein Total Protein Albumin Arterial Blood Glucose 243 H Arterial Blood Ionized Calcium Ur Specific [place] Vancomycin Trough Coronavirus (PCR) 11/26/20 11/26/20 11/26/20 16:20 17:15 23:41 WBC RBC Hgb Hct Lymph % (Auto) [place] % (Auto) Lymph # (Auto) [place] # (Auto) Baso # (Auto) Seg Neutrophils % Seg Neuts % (Manual) Lymphocytes % (Manual) Seg Neutrophils # Seg Neutrophils # Man Lymphocytes # (Manual) D-Dimer ABG pH POC ABG pCO2 66.6 H POC ABG pO2 78.1 L ABG Hemoglobin ABG Oxyhemoglobin ABG Sodium ABG Potassium ABG Chloride ABG Glucose 244 H Sodium Chloride Carbon Dioxide BUN Creatinine Glucose POC Glucose 219 H 210 H Hemoglobin A1c Lactic Acid Calcium Ferritin Total Bilirubin AST ALT Alkaline Phosphatase Lactate Dehydrogenase C-Reactive Protein Total Protein Albumin Arterial Blood Glucose 244 H Arterial Blood Ionized Calcium Ur Specific [place] Vancomycin Trough Coronavirus (PCR) 11/27/20 11/27/20 11/27/20 04:46 05:38 06:25 WBC 13.8 H RBC Hgb Hct Lymph % (Auto) 2.0 L [place] % (Auto) Lymph # (Auto) 0.3 L [place] # (Auto) Baso # (Auto) Seg Neutrophils % Seg Neuts % (Manual) 96.0 H Lymphocytes % (Manual) Seg Neutrophils # 12.7 H Seg Neutrophils # Man 13.2 H Lymphocytes # (Manual) 0.0 L D-Dimer ABG pH POC ABG pCO2 63.0 H POC ABG pO2 53.6 L ABG Hemoglobin ABG Oxyhemoglobin 87.8 L ABG Sodium 115.4 L ABG Potassium ABG Chloride ABG Glucose 219 H Sodium Chloride Carbon Dioxide BUN Creatinine Glucose POC Glucose 227 H Hemoglobin A1c Lactic Acid Calcium Ferritin Total Bilirubin AST ALT Alkaline Phosphatase Lactate Dehydrogenase C-Reactive Protein Total Protein Albumin Arterial Blood Glucose 219 H Arterial Blood Ionized Calcium Ur Specific [place] Vancomycin Trough Coronavirus (PCR) 11/27/20 11/27/20 11/27/20 06:25 18:05 23:29 WBC RBC Hgb Hct Lymph % (Auto) [place] % (Auto) Lymph # (Auto) [place] # (Auto) Baso # (Auto) Seg Neutrophils % Seg Neuts % (Manual) Lymphocytes % (Manual) Seg Neutrophils # Seg Neutrophils # Man Lymphocytes # (Manual) D-Dimer ABG pH POC ABG pCO2 POC ABG pO2 ABG Hemoglobin ABG Oxyhemoglobin ABG Sodium ABG Potassium ABG Chloride ABG Glucose Sodium Chloride Carbon Dioxide 38 H BUN 34 H Creatinine 0.4 L Glucose 243 H POC Glucose 329 H 227 H Hemoglobin A1c Lactic Acid Calcium 7.9 L Ferritin Total Bilirubin AST 50 H ALT 110 H Alkaline Phosphatase Lactate Dehydrogenase C-Reactive Protein Total Protein 6.1 L Albumin 2.4 L Arterial Blood Glucose Arterial Blood Ionized Calcium Ur Specific [place] Vancomycin Trough Coronavirus (PCR) 11/28/20 11/28/20 11/28/20 03:45 03:45 03:46 WBC 12.2 H RBC Hgb Hct Lymph % (Auto) [place] % (Auto) Lymph # (Auto) [place] # (Auto) Baso # (Auto) Seg Neutrophils % Seg Neuts % (Manual) 93.0 H Lymphocytes % (Manual) 2.0 L Seg Neutrophils # Seg Neutrophils # Man 11.3 H Lymphocytes # (Manual) 0.2 L D-Dimer ABG pH POC ABG pCO2 68.4 H POC ABG pO2 55.4 L ABG Hemoglobin ABG Oxyhemoglobin ABG Sodium ABG Potassium ABG Chloride ABG Glucose 197 H Sodium Chloride Carbon Dioxide 36 H BUN 37 H Creatinine 0.4 L Glucose 194 H POC Glucose Hemoglobin A1c Lactic Acid Calcium 8.1 L Ferritin Total Bilirubin AST ALT 86 H Alkaline Phosphatase Lactate Dehydrogenase C-Reactive Protein Total Protein 6.0 L Albumin 2.3 L Arterial Blood Glucose 197 H Arterial Blood Ionized Calcium Ur Specific [place] Vancomycin Trough Coronavirus (PCR) 11/28/20 11/28/20 11/29/20 05:24 12:21 04:41 WBC RBC Hgb Hct Lymph % (Auto) [place] % (Auto) Lymph # (Auto) [place] # (Auto) Baso # (Auto) Seg Neutrophils % Seg Neuts % (Manual) Lymphocytes % (Manual) Seg Neutrophils # Seg Neutrophils # Man Lymphocytes # (Manual) D-Dimer ABG pH POC ABG pCO2 55.1 H POC ABG pO2 53.6 L ABG Hemoglobin ABG Oxyhemoglobin 87.1 L ABG Sodium 131.2 L ABG Potassium ABG Chloride ABG Glucose 164 H Sodium Chloride Carbon Dioxide BUN Creatinine Glucose POC Glucose 173 H 126 H Hemoglobin A1c Lactic Acid Calcium Ferritin Total Bilirubin AST ALT Alkaline Phosphatase Lactate Dehydrogenase C-Reactive Protein Total Protein Albumin Arterial Blood Glucose 164 H Arterial Blood Ionized Calcium 4.4 L Ur Specific [place] Vancomycin Trough Coronavirus (PCR) 11/29/20 11/29/20 11/29/20 05:29 12:41 13:28 WBC RBC Hgb Hct Lymph % (Auto) [place] % (Auto) Lymph # (Auto) [place] # (Auto) Baso # (Auto) Seg Neutrophils % Seg Neuts % (Manual) Lymphocytes % (Manual) Seg Neutrophils # Seg Neutrophils # Man Lymphocytes # (Manual) D-Dimer ABG pH POC ABG pCO2 POC ABG pO2 ABG Hemoglobin ABG Oxyhemoglobin ABG Sodium ABG Potassium ABG Chloride ABG Glucose Sodium Chloride Carbon Dioxide 40 H BUN 32 H Creatinine 0.4 L Glucose 274 H POC Glucose 173 H 257 H Hemoglobin A1c Lactic Acid Calcium 7.2 L Ferritin Total Bilirubin AST 57 H ALT 102 H Alkaline Phosphatase Lactate Dehydrogenase C-Reactive Protein Total Protein 5.7 L Albumin 2.1 L Arterial Blood Glucose Arterial Blood Ionized Calcium Ur Specific [place] Vancomycin Trough Coronavirus (PCR) 11/29/20 11/29/20 11/29/20 15:40 17:36 21:26 WBC RBC Hgb Hct Lymph % (Auto) [place] % (Auto) Lymph # (Auto) [place] # (Auto) Baso # (Auto) Seg Neutrophils % Seg Neuts % (Manual) Lymphocytes % (Manual) Seg Neutrophils # Seg Neutrophils # Man Lymphocytes # (Manual) D-Dimer ABG pH POC ABG pCO2 POC ABG pO2 ABG Hemoglobin ABG Oxyhemoglobin ABG Sodium ABG Potassium ABG Chloride ABG Glucose Sodium Chloride Carbon Dioxide BUN Creatinine Glucose POC Glucose 240 H 244 H Hemoglobin A1c Lactic Acid Calcium Ferritin Total Bilirubin AST ALT Alkaline Phosphatase Lactate Dehydrogenase C-Reactive Protein Total Protein Albumin Arterial Blood Glucose Arterial Blood Ionized Calcium Ur Specific [place] Vancomycin Trough 4.0 L Coronavirus (PCR) 11/29/20 11/30/20 11/30/20 23:26 03:30 03:30 WBC RBC Hgb Hct Lymph % (Auto) [place] % (Auto) Lymph # (Auto) [place] # (Auto) Baso # (Auto) Seg Neutrophils % Seg Neuts % (Manual) 97.0 H Lymphocytes % (Manual) 1.0 L Seg Neutrophils # Seg Neutrophils # Man 9.9 H Lymphocytes # (Manual) 0.1 L D-Dimer ABG pH POC ABG pCO2 POC ABG pO2 ABG Hemoglobin ABG Oxyhemoglobin ABG Sodium ABG Potassium ABG Chloride ABG Glucose Sodium Chloride Carbon Dioxide 38 H BUN 34 H Creatinine 0.4 L Glucose 305 H POC Glucose 283 H Hemoglobin A1c Lactic Acid Calcium 7.6 L Ferritin Total Bilirubin AST ALT 89 H Alkaline Phosphatase Lactate Dehydrogenase C-Reactive Protein Total Protein 6.0 L Albumin 2.3 L Arterial Blood Glucose Arterial Blood Ionized Calcium Ur Specific [place] Vancomycin Trough Coronavirus (PCR) 11/30/20 11/30/20 11/30/20 03:57 05:22 12:05 WBC RBC Hgb Hct Lymph % (Auto) [place] % (Auto) Lymph # (Auto) [place] # (Auto) Baso # (Auto) Seg Neutrophils % Seg Neuts % (Manual) Lymphocytes % (Manual) Seg Neutrophils # Seg Neutrophils # Man Lymphocytes # (Manual) D-Dimer ABG pH POC ABG pCO2 60.8 H POC ABG pO2 51.1 L ABG Hemoglobin ABG Oxyhemoglobin 84.6 L ABG Sodium ABG Potassium ABG Chloride ABG Glucose 315 H Sodium Chloride Carbon Dioxide BUN Creatinine Glucose POC Glucose 295 H 413 H Hemoglobin A1c Lactic Acid Calcium Ferritin Total Bilirubin AST ALT Alkaline Phosphatase Lactate Dehydrogenase C-Reactive Protein Total Protein Albumin Arterial Blood Glucose 315 H Arterial Blood Ionized Calcium 4.5 L Ur Specific [place] Vancomycin Trough Coronavirus (PCR) 11/30/20 11/30/20 12/01/20 17:24 23:25 02:14 WBC RBC Hgb Hct Lymph % (Auto) [place] % (Auto) Lymph # (Auto) [place] # (Auto) Baso # (Auto) Seg Neutrophils % Seg Neuts % (Manual) Lymphocytes % (Manual) Seg Neutrophils # Seg Neutrophils # Man Lymphocytes # (Manual) D-Dimer ABG pH 7.278 L POC ABG pCO2 78.1 H POC ABG pO2 79.5 L ABG Hemoglobin 11.6 L ABG Oxyhemoglobin ABG Sodium 134.5 L ABG Potassium 4.6 H ABG Chloride ABG Glucose 286 H Sodium Chloride Carbon Dioxide BUN Creatinine Glucose POC Glucose 305 H 302 H Hemoglobin A1c Lactic Acid Calcium Ferritin Total Bilirubin AST ALT Alkaline Phosphatase Lactate Dehydrogenase C-Reactive Protein Total Protein Albumin Arterial Blood Glucose 286 H Arterial Blood Ionized Calcium Ur Specific [place] Vancomycin Trough Coronavirus (PCR) 12/01/20 12/01/20 12/01/20 03:35 03:35 05:22 WBC 13.4 H RBC 3.54 L Hgb 10.4 L Hct 31.8 L Lymph % (Auto) [place]son % (Auto) Lymph # (Auto) [place] # (Auto) Baso # (Auto) Seg Neutrophils % Seg Neuts % (Manual) 95.0 H Lymphocytes % (Manual) 3.0 L Seg Neutrophils # Seg Neutrophils # Man 12.7 H Lymphocytes # (Manual) 0.4 L D-Dimer ABG pH POC ABG pCO2 POC ABG pO2 ABG Hemoglobin ABG Oxyhemoglobin ABG Sodium ABG Potassium ABG Chloride ABG Glucose Sodium Chloride Carbon Dioxide 35 H BUN 34 H Creatinine 0.5 L Glucose 279 H POC Glucose 259 H Hemoglobin A1c Lactic Acid Calcium 7.6 L Ferritin Total Bilirubin AST ALT 63 H Alkaline Phosphatase Lactate Dehydrogenase C-Reactive Protein Total Protein 4.8 L Albumin 2.1 L Arterial Blood Glucose Arterial Blood Ionized Calcium Ur Specific [place] Vancomycin Trough Coronavirus (PCR)
[2020-12-01] MEDS: MIDAZOLAM 100 MG in SODIUM CHLORIDE 0.9% 80 ML IV SCH (11:53)
--- NOTE | 2020-12-01 15:44 | Progress Note ---
Assessment and Plan Cultures: SARS CoV-2 PCR: positive Blood culture: No growth 11/21/2020 tracheal aspirate culture: MRSA A/P: 59-year-old male: #Bilateral pneumonia: secondary to COVID-19. Admission labs showed leukocytosis, D-dimer greater than 10,000, ferritin 672, CRP 19.8, LDH 663, creatinine 0.6, procalcitonin 0.51. Completed 5 days of abx, remdesivir. #MRSA on ET aspirate culture, ?colonization v/s true disease, difficult to differentiate. #Right-sided pneumothorax and pneumomediastinum: Underwent placement of right- sided chest tube #Acute hypoxic respiratory failure: Failed BiPAP. Remains on the vent. #Elevated d-dimer: DVT scan negative. Unable to get CTA Chest due to patients unstable clinical status #Transaminitis: secondary to COVID-19. Recs: -MRSA on ET aspirate culture, ?colonization v/s true disease, difficult to diff erentiate, remains critically ill,IV Vancomycin x 7 days. Stop date 12/03/2020 -continue steroids per ICU team -Continue prophylactic anticoagulation based on d-dimer per hospital protocol -trend ferritin, LDH, d-dimer, CRP every 2-3 days for risk stratification and to assess disease progression -guarded prognosis Rm Carrillo MD [facility] O: [phone] F: [phone] Subjective Date of service: 12/01/20 Principal diagnosis: COVID-19 Interval history: Afebrile, white count worsening to 13.4. Worsening oxygenation. Objective - Exam Narrative Exam: Physical exam deferred due to PPE conservation strategy. Please refer to primary team's note. - Constitutional Vitals: Vital Signs Temp Pulse Resp BP Pulse Ox 97.8 F 63 19 117/67 96 12/01/20 12:17 12/01/20 15:14 12/01/20 12:02 12/01/20 15:14 12/01/20 15:14 Temperature -Last 24 Hours Temperature 97.8 F Temperature 97.8 F Temperature 97 F Temperature 97.8 F Temperature 98.9 F Temperature 98.8 F Temperature 98.4 F Temperature 98.9 F - Labs CBC & Chem 7: 12/01/20 03:35 12/01/20 03:35 Labs: Abnormal lab results 11/30/20 11/30/20 12/01/20 Range/Units 17:24 23:25 02:14 WBC (4.5-11.0) K/mm3 RBC (3.65-5.03) M/mm3 Hgb (11.8-15.2) gm/dl Hct (35.5-45.6) % Seg Neuts % (Manual) (40.0-70.0) % Lymphocytes % (Manual) (13.4-35.0) % Seg Neutrophils # Man (1.8-7.7) K/mm3 Lymphocytes # (Manual) (1.2-5.4) K/mm3 ABG pH 7.278 L (7.320-7.450) POC ABG pCO2 78.1 H (32.0-48.0) mmHg POC ABG pO2 79.5 L (83-108) mmHg ABG Hemoglobin 11.6 L (12.0-17.5) ABG Sodium 134.5 L (136.0-145.0) mmol/L ABG Potassium 4.6 H (3.40-4.50) mmol/L ABG Glucose 286 H (65-95) mg/dL Carbon Dioxide (22-30) mmol/L BUN (9-20) mg/dL Creatinine (0.8-1.3) mg/dL Glucose (75-100) mg/dL POC Glucose 305 H 302 H (70-105) mg/dL Calcium (8.4-10.2) mg/dL ALT (7-56) units/L Total Protein (6.3-8.2) g/dL Albumin (3.9-5) g/dL Arterial Blood Glucose 286 H (65-95) mg/dL 12/01/20 12/01/20 12/01/20 Range/Units 03:35 03:35 05:22 WBC 13.4 H (4.5-11.0) K/mm3 RBC 3.54 L (3.65-5.03) M/mm3 Hgb 10.4 L (11.8-15.2) gm/dl Hct 31.8 L (35.5-45.6) % Seg Neuts % (Manual) 95.0 H (40.0-70.0) % Lymphocytes % (Manual) 3.0 L (13.4-35.0) % Seg Neutrophils # Man 12.7 H (1.8-7.7) K/mm3 Lymphocytes # (Manual) 0.4 L (1.2-5.4) K/mm3 ABG pH (7.320-7.450) POC ABG pCO2 (32.0-48.0) mmHg POC ABG pO2 (83-108) mmHg ABG Hemoglobin (12.0-17.5) ABG Sodium (136.0-145.0) mmol/L ABG Potassium (3.40-4.50) mmol/L ABG Glucose (65-95) mg/dL Carbon Dioxide 35 H (22-30) mmol/L BUN 34 H (9-20) mg/dL Creatinine 0.5 L (0.8-1.3) mg/dL Glucose 279 H (75-100) mg/dL POC Glucose 259 H (70-105) mg/dL Calcium 7.6 L (8.4-10.2) mg/dL ALT 63 H (7-56) units/L Total Protein 4.8 L (6.3-8.2) g/dL Albumin 2.1 L (3.9-5) g/dL Arterial Blood Glucose (65-95) mg/dL 12/01/20 Range/Units 12:05 WBC (4.5-11.0) K/mm3 RBC (3.65-5.03) M/mm3 Hgb (11.8-15.2) gm/dl Hct (35.5-45.6) % Seg Neuts % (Manual) (40.0-70.0) % Lymphocytes % (Manual) (13.4-35.0) % Seg Neutrophils # Man (1.8-7.7) K/mm3 Lymphocytes # (Manual) (1.2-5.4) K/mm3 ABG pH (7.320-7.450) POC ABG pCO2 (32.0-48.0) mmHg POC ABG pO2 (83-108) mmHg ABG Hemoglobin (12.0-17.5) ABG Sodium (136.0-145.0) mmol/L ABG Potassium (3.40-4.50) mmol/L ABG Glucose (65-95) mg/dL Carbon Dioxide (22-30) mmol/L BUN (9-20) mg/dL Creatinine (0.8-1.3) mg/dL Glucose (75-100) mg/dL POC Glucose 197 H (70-105) mg/dL Calcium (8.4-10.2) mg/dL ALT (7-56) units/L Total Protein (6.3-8.2) g/dL Albumin (3.9-5) g/dL Arterial Blood Glucose (65-95) mg/dL
[2020-12-01] MEDS: fentaNYL DRIP Premix 2,000 MCG/100 ML BAG IV SCH (18:41)
[2020-12-01] MEDS ORDERED: INSULIN GLARGINE 100 UNITS/ML SUB-Q SCH (22:00)
[2020-12-02] MEDS: methylPREDNISolone Sod Succinate 125 MG/2 ML INJ IV SCH ×5 (00:05→17:56)
[2020-12-02] MEDS: fentaNYL DRIP Premix 2,000 MCG/100 ML BAG IV SCH ×4 (01:43→16:28)
[2020-12-02 02:53] LABS: Hematocrit 31.9 % (35.5-45.6); Hemoglobin 10.5 gm/dl (11.8-15.2); Mean Corpuscular HGB Conc 33 % (32-34); Mean Corpuscular Volume 90 fl (84-94); Platelet Count 172 K/mm3 (140-440); Red Blood Count 3.55 M/mm3 (3.65-5.03); Red Cell Distribution Width 13.7 % (13.2-15.2)
--- NOTE | 2020-12-02 03:08 | XRay Report ---
CHEST 1 VIEW 12/02/2020 1:59 AM INDICATION / CLINICAL INFORMATION: complications with chest tube. COMPARISON: 12/01/2020 FINDINGS: SUPPORT DEVICES: Lines and tubes again project in expected position HEART / MEDIASTINUM: Moderate pneumomediastinum again noted with extensive bilateral chest wall and s upraclavicular emphysema, unchanged LUNGS / PLEURA: Moderate bilateral parenchymal disease, unchanged. Small right and tiny left pneumoth oraces, unchanged ADDITIONAL FINDINGS: No significant additional findings. IMPRESSION: 1. Stable pneumomediastinum and bilateral small pneumothoraces with chest tubes in place. 2. Bilateral parenchymal disease, unchanged Signer Name: Royce Payan MD Signed: 12/02/2020 3:04 AM Workstation Name: [id number]
[2020-12-02 04:08] LABS: Anisocytosis Few; Band Neutrophils # (Manual) 0.3 K/mm3; Platelet Estimate Cons; Total Cells Counted 100
[2020-12-02 04:28] LABS: Alanine Aminotransferase 53 units/L (7-56); Albumin 2.2 g/dL (3.9-5); Blood Urea Nitrogen 30 mg/dL (9-20); Calcium 7.5 mg/dL (8.4-10.2); Hemolysis Index 1
[2020-12-02 04:31] LABS: BUN/Creatinine Ratio 75
[2020-12-02] MEDS: VANCOMYCIN 1,500 MG in SODIUM CHLORIDE 0.9% 500 ML 500 ML IV SCH ×2 (05:14→17:57)
[2020-12-02] MEDS: MIDAZOLAM 100 MG in SODIUM CHLORIDE 0.9% 80 ML IV SCH (06:08)
[2020-12-02] MEDS: MIDAZOLAM 2 MG/2 ML INJ IV PRN (06:20)
[2020-12-02] MEDS: INSULIN LISPRO 100 UNIT/ML SUB-Q SCH ×3 (06:20→17:57)
--- NOTE | 2020-12-02 07:34 | Progress Note ---
Assessment and Plan Assessment and plan: 59-year-old female presents with shortness of breath cough fever weakness. "1 to 2 days. Patient has severe hypoxia per EMS. Her saturations are in the low 80s. With all oxygen and nonrebreather came down to low 90s. Patient denies any past medical history. Exposure to coronavirus present. Does not have a primary care physician. 2/1: Patient continues on BiPAP throughout the night. Labs are remarkable for hypoxia with improving renal function but lactic acidosis without fever. CTA has been ordered to rule out pulmonary embolism. I agree with increasing enoxaparin to twice daily full dose for empiric treatment of pulmonary embolism. Will obtain ID consultation on further evaluation for possible underlying pneumonia versus COVID-19. We will also obtain echocardiogram for evaluation. Will discontinue fluids at this time. 2/2; Continue supportive care, Patient remains with very guarded prognosis, remains on BiPAP, continues on Remdesivir, and steroids. Will continue antico agulation, unable to get CTA Chest due to patients unstable clinical status. Will adjust insulin for better blood glucose 2/3: Continues on BIPAP, no clear improvement at this time. Will continue richelle roids therapy Remdesivir and also Full anticoagulation at this time. Will update family. Discussed with Window Machine Operator. 2/4: Taking a break from the BiPAP on high flow and nonrebreather 100% with saturation of 90% becomes hypoxic with any movement. Window Machine Operator input noted will get a dose of Lasix today. Will await a discussion with ID for possibly increasing steroid. I updated Patient's Cousin, Tayla Esquivel who is the emergency field contact person. Blood sugar remains fluctuating secondary to steriods, Encouraged Prone positioning. Noted with mild hyponatremia we will continue to monitor and manage 2/5: Continue supportive care wean oxygen as tolerated prognosis remains guarded. Encouraged to progress as tolerated. Awaiting labs today. Discussed with nursing staff and patient at bedside. 2/6: Discontinued Dexamethasone as Solumedrol started secondary to increased oxygen demand. Will give additional insulin for better control. Continue oxygen support patient still on high flow. Prognosis still guarded 2/7: Patient was intubated and placed on mechanical ventilation. Continue current medication. Will check a.m. labs today. Noted still with hypotension. Doubt septic shock at this time as patient has no new fever. Will adjust insulin for better blood sugar control. 11/23: Patient admitted with COVID-19 despite all efforts patient remains severely hypoxic and now is intubated. Window Machine Operator input noted. Blood pressure marginal at this time. Very poor prognosis. Continue Solu-Medrol. 11/24. Patient remains very hypoxic. Blood pressure borderline. Plan for initiation of paralytic agents as per knitting machine tender. Patient may need to be transferred if no improvement. 11/26. Off paralytics. Remains intubated. On steroids. Prognosis is poor. 11/27. Chest xray shows pneumomediastinum and subcutaneous emphysema. Surgery consulted. Plan for chest tube placement. Sputum culture grew MRSA. Patient started on vancomycin per ID. 11/28. Right chest tube placed yesterday by surgery. Repeat chest x-ray showed left small pneumothorax. Plan for chest tube placement on the left today. Remains on paralytic agents. 11/29. Remains intubated on vent. Had left chest tube placed yesterday. Vitals reviewed. Critical care following 11/30/ Remains on mechanical ventilation. Worsening hypoxia. Bilateral chest tubes in place. Vitals reviewed. Labs reviewed 12/01: Chest tube and mechanical ventilation remains in place, poor prognosis, FIO2 remains at 90%, adjust insulin for better blood glucose control 12/02: Patient remains on full ventilatory support and steroids, still with worsening leukocytosis ?inflammatory or infectious vs steroids. Continue vancomycin. Problems --Acute respiratory failure with hypoxia 11/17 COVID 19 pneumonia Patient remains fully dependent on mechanical ventilatory support Window Machine Operator on board On solumedrol 60 q 6 ID on board Prognosis is poor --Pneumomediastinum, subcutaneous emphysema, small left-sided pneumothorax Right and Left chest tube in place Surgery following --Diabetes Mellitus Continue to adjust Insulin dosage Monitor blood glucose closely --- Covid pneumonia Management as above ---MRSA pneumonia Vancomycin ID on board The high probability of a clinically significant, sudden or life threatening deterioration of the [pulmonary] system(s) required my full and direct attention, intervention and personal management. The aggregate critical care time was [35] minutes. This time is in addition to time spent performing r eported procedures but includes the following: [X] Data Review and interpretation [X] Patient assessment and monitoring of vital signs [X] Documentation [X] Medication orders and management History Interval history: Patient remains intubated, sedated, and with bilateral chest tubes. No adverse event reported to me overnight from nursing staff Hospitalist Physical - Physical exam Narrative exam: VITAL SIGNS: Reviewed. GENERAL: The patient appears normally developed, sedated HEAD: No signs of head trauma. EYES: Pupils are equal. EARS: Unable to examine MOUTH: Oropharynx with ET tube in place NECK: No adenopathy, no JVD. CHEST: Chest with diminished breath sounds bilaterally. No wheezes, rales, or rhonchi. CARDIAC: Regular rate and rhythm. S1 and S2, without murmurs, gallops, or rubs. VASCULAR: No Edema. Peripheral pulses normal and equal in all extremities. ABDOMEN: Soft, non tender and non distended. No rebound or guarding, and no masses palpated. Bowel Sounds normal. MUSCULOSKELETAL: Good range of motion of all major joints. Extremities without clubbing, cyanosis or edema. NEUROLOGIC EXAM: Sedated no focal sensory or strength deficits. PSYCHIATRIC: Sedated SKIN: detail exam as documented in skin assessment - Constitutional Vitals: Temp Pulse Resp BP Pulse Ox 98.2 F 78 23 108/59 95 12/02/20 07:00 12/02/20 07:15 12/02/20 07:15 12/02/20 07:15 12/02/20 07:15 General appearance: Present: mild distress, well-nourished HEART Score - HEART Score Troponin: Troponin T < 0.010 ng/mL (0.00-0.029) 11/22/20 Unknown Results - Labs CBC & Chem 7: 12/02/20 02:14 12/02/20 04:11 Labs: Laboratory Last Values WBC 16.5 K/mm3 (4.5-11.0) H 12/02/20 02:14 RBC 3.55 M/mm3 (3.65-5.03) L 12/02/20 02:14 Hgb 10.5 gm/dl (11.8-15.2) L 12/02/20 02:14 Hct 31.9 % (35.5-45.6) L 12/02/20 02:14 MCV 90 fl (84-94) 12/02/20 02:14 MCH 30 pg (28-32) 12/02/20 02:14 MCHC 33 % (32-34) 12/02/20 02:14 RDW 13.7 % (13.2-15.2) 12/02/20 02:14 Plt Count 172 K/mm3 (140-440) 12/02/20 02:14 Lymph % (Auto) 2.0 % (13.4-35.0) L 11/27/20 06:25 Hitchcock % (Auto) 5.2 % (0.0-7.3) 11/27/20 06:25 Eos % (Auto) 0.0 % (0.0-4.3) 11/27/20 06:25 Baso % (Auto) 0.1 % (0.0-1.8) 11/27/20 06:25 Lymph # (Auto) 0.3 K/mm3 (1.2-5.4) L 11/27/20 06:25 Hitchcock # (Auto) 0.7 K/mm3 (0.0-0.8) 11/27/20 06:25 Eos # (Auto) 0.0 K/mm3 (0.0-0.4) 11/27/20 06:25 Baso # (Auto) 0.0 K/mm3 (0.0-0.1) 11/27/20 06:25 Add Manual Diff Complete 12/02/20 02:14 Total Counted 100 12/02/20 02:14 Seg Neutrophils % Cheese Cooker 12/02/20 02:14 Seg Neuts % (Manual) 90.0 % (40.0-70.0) H 12/02/20 02:14 Band Neutrophils % 2.0 % 12/02/20 02:14 Lymphocytes % (Manual) 3.0 % (13.4-35.0) L 12/02/20 02:14 Monocytes % (Manual) 5.0 % (0.0-7.3) 12/02/20 02:14 Nucleated RBC % Not Reportable 12/02/20 02:14 Seg Neutrophils # 12.7 K/mm3 (1.8-7.7) H 11/27/20 06:25 Seg Neutrophils # Man 14.9 K/mm3 (1.8-7.7) H 12/02/20 02:14 Band Neutrophils # 0.3 K/mm3 12/02/20 02:14 Lymphocytes # (Manual) 0.5 K/mm3 (1.2-5.4) L 12/02/20 02:14 Abs React Lymphs (Man) 0.0 K/mm3 12/02/20 02:14 Monocytes # (Manual) 0.8 K/mm3 (0.0-0.8) 12/02/20 02:14 Eosinophils # (Manual) 0.0 K/mm3 (0.0-0.4) 12/02/20 02:14 Basophils # (Manual) 0.0 K/mm3 (0.0-0.1) 12/02/20 02:14 Metamyelocytes # 0.0 K/mm3 12/02/20 02:14 Myelocytes # 0.0 K/mm3 12/02/20 02:14 Promyelocytes # 0.0 K/mm3 12/02/20 02:14 Blast Cells # 0.0 K/mm3 12/02/20 02:14 WBC Morphology Not Reportable 12/02/20 02:14 Hypersegmented Neuts Not Reportable 12/02/20 02:14 Hyposegmented Neuts Not Reportable 12/02/20 02:14 Hypogranular Neuts Not Reportable 12/02/20 02:14 Smudge Cells Not Reportable 12/02/20 02:14 Toxic Granulation Not Reportable 12/02/20 02:14 Toxic Vacuolation Not Reportable 12/02/20 02:14 Dohle Bodies Not Reportable 12/02/20 02:14 Pelger-Huet Anomaly Not Reportable 12/02/20 02:14 Tony Rods Not Reportable 12/02/20 02:14 Platelet Estimate Cons 12/02/20 02:14 Clumped Platelets Not Reportable 12/02/20 02:14 Plt Clumps, EDTA Not Reportable 12/02/20 02:14 Large Platelets Not Reportable 12/02/20 02:14 Giant Platelets Not Reportable 12/02/20 02:14 Platelet Satelliting Not Reportable 12/02/20 02:14 Plt Morphology Comment Not Reportable 12/02/20 02:14 RBC Morphology Not Reportable 12/02/20 02:14 Dimorphic RBCs Not Reportable 12/02/20 02:14 Polychromasia Not Reportable 12/02/20 02:14 Hypochromasia Not Reportable 12/02/20 02:14 Poikilocytosis Not Reportable 12/02/20 02:14 Anisocytosis Few 12/02/20 02:14 Microcytosis Not Reportable 12/02/20 02:14 Macrocytosis Not Reportable 12/02/20 02:14 Spherocytes Not Reportable 12/02/20 02:14 Pappenheimer Bodies Not Reportable 12/02/20 02:14 Sickle Cells Not Reportable 12/02/20 02:14 Target Cells Not Reportable 12/02/20 02:14 Tear Drop Cells Not Reportable 12/02/20 02:14 Ovalocytes Not Reportable 12/02/20 02:14 Helmet Cells Not Reportable 12/02/20 02:14 Cabrera-Rebecca Bodies Not Reportable 12/02/20 02:14 [place] Rings Not Reportable 12/02/20 02:14 Henrry Cells Not Reportable 12/02/20 02:14 Bite Cells Not Reportable 12/02/20 02:14 Crenated Cell Not Reportable 12/02/20 02:14 Elliptocytes Not Reportable 12/02/20 02:14 Acanthocytes (Spur) Not Reportable 12/02/20 02:14 Rouleaux Not Reportable 12/02/20 02:14 Hemoglobin C Crystals Not Reportable 12/02/20 02:14 Schistocytes Not Reportable 12/02/20 02:14 Malaria parasites Not Reportable 12/02/20 02:14 Yovani Bodies Not Reportable 12/02/20 02:14 Hem Pathologist Commnt No 12/02/20 02:14 D-Dimer 926.11 ng/mlDDU (0-234) H 11/26/20 06:04 ABG pH 7.338 (7.320-7.450) 12/02/20 03:03 POC ABG pCO2 74.8 mmHg (32.0-48.0) H 12/02/20 03:03 POC ABG pO2 58.9 mmHg (83-108) L 12/02/20 03:03 POC ABG HCO3 39.3 12/02/20 03:03 POC ABG Base Excess 10.9 12/02/20 03:03 ABG Hemoglobin 11.5 (12.0-17.5) L 12/02/20 03:03 ABG Oxyhemoglobin 84.6 (94-98) L 11/30/20 03:57 ABG Methemoglobin 0.3 (0.0-1.5) 11/30/20 03:57 ABG Sodium 136.5 mmol/L (136.0-145.0) 12/02/20 03:03 ABG Potassium 4.4 mmol/L (3.40-4.50) 12/02/20 03:03 ABG Chloride 99.0 mmol/L (98-107) 12/02/20 03:03 ABG Glucose 264 mg/dL (65-95) H 12/02/20 03:03 Carboxyhemoglobin 1.0 (0.5-1.5) 11/30/20 03:57 FiO2 85 12/02/20 03:03 Sodium 142 mmol/L (137-145) 12/02/20 04:11 Potassium 4.6 mmol/L (3.6-5.0) 12/02/20 04:11 Chloride 101.6 mmol/L (98-107) 12/02/20 04:11 Carbon Dioxide 37 mmol/L (22-30) H 12/02/20 04:11 Anion Gap 8 mmol/L 12/02/20 04:11 BUN 30 mg/dL (9-20) H 12/02/20 04:11 Creatinine 0.4 mg/dL (0.8-1.3) L 12/02/20 04:11 Estimated GFR > 60 ml/min 12/02/20 04:11 BUN/Creatinine Ratio 75 % 12/02/20 04:11 Glucose 245 mg/dL (75-100) H 12/02/20 04:11 POC Glucose 238 mg/dL (70-105) H 12/02/20 05:19 Hemoglobin A1c 11.7 % (4-6) H 11/16/20 05:29 Lactic Acid 2.60 mmol/L (0.7-2.0) H* 11/16/20 05:29 Calcium 7.5 mg/dL (8.4-10.2) L 12/02/20 04:11 Ferritin 778.8 ng/mL (30.0-300.0) H 11/26/20 04:00 Total Bilirubin 0.30 mg/dL (0.1-1.2) 12/02/20 04:11 AST 24 units/L (5-40) 12/02/20 04:11 ALT 53 units/L (7-56) 12/02/20 04:11 Alkaline Phosphatase 102 units/L (35-129) 12/02/20 04:11 Lactate Dehydrogenase 288 units/L (91-180) H 11/26/20 04:00 Troponin T < 0.010 ng/mL (0.00-0.029) 11/22/20 Unknown C-Reactive Protein 1.40 mg/dL (0.00-1.30) H 11/26/20 04:00 NT-Pro-B Natriuret Pep 107.2 pg/mL (0-900) 11/17/20 10:21 Total Protein 5.2 g/dL (6.3-8.2) L 12/02/20 04:11 Albumin 2.2 g/dL (3.9-5) L 12/02/20 04:11 Albumin/Globulin Ratio 0.7 % 12/02/20 04:11 Triglycerides 124 mg/dL (2-149) 11/30/20 03:35 Procalcitonin 0.51 ng/mL (<0.15) 11/15/20 10:39 Arterial Blood Glucose 264 mg/dL (65-95) H 12/02/20 03:03 Arterial Blood Ionized Calcium 4.5 mg/dL (4.6-5.3) L 12/02/20 03:03 Urine Color Faustina (Yellow) 11/16/20 01:45 Urine Turbidity Slightly-cloudy (Clear) 11/16/20 01:45 Urine pH 6.0 (5.0-7.0) 11/16/20 01:45 Ur Specific [place] 1.037 (1.003-1.030) H 11/16/20 01:45 Urine Protein 30 mg/dl mg/dL (Negative) 11/16/20 01:45 Urine Glucose (UA) >=500 mg/dL (Negative) 11/16/20 01:45 Urine Ketones 20 mg/dL (Negative) 11/16/20 01:45 Urine Blood Neg (Negative) 11/16/20 01:45 Urine Nitrite Neg (Negative) 11/16/20 01:45 Urine Bilirubin Neg (Negative) 11/16/20 01:45 Urine Urobilinogen 2.0 mg/dL (<2.0) 11/16/20 01:45 Ur Leukocyte Esterase Neg (Negative) 11/16/20 01:45 Urine WBC (Auto) 2.0 /HPF (0.0-6.0) 11/16/20 01:45 Urine RBC (Auto) 1.0 /HPF (0.0-6.0) 11/16/20 01:45 Urine Bacteria (Auto) 1+ /HPF (Negative) 11/16/20 01:45 Urine Mucus 3+ /HPF 11/16/20 01:45 Vancomycin Trough 4.0 ug/mL (5.0-20.0) L 11/29/20 15:40 Coronavirus (PCR) Positive (Negative) A 11/16/20 Unknown - Diagnostic Impressions Diagnostic Impressions: Echocardiogram 11/16/20 10:34 Transthoracic Echocardiogram Indication: Shortness of breath-COVID BP: 108/77 HR: 92 Conclusions *Global left ventricular systolic function is normal. *The estimated ejection fraction is 60-65%. *Mild to moderate concentric left ventricular hypertrophy is observed. *There is trace of mitral regurgitation. *There is mild to moderate tricuspid regurgitation. *There is evidence of mild pulmonary hypertension. *The right ventricular systolic pressure is calculated at 31 mmHg. Findings Left Ventricle: The left ventricular chamber size is normal. Mild to moderate concentric left ventricular hypertrophy is observed. Global left ventricular systolic function is normal. The estimated ejection fraction is 60-65%. Left Atrium: The left atrial chamber size is normal. Right Ventricle: The right ventricular cavity size is normal. The right ventricular global systolic function is normal. Right Atrium: The right atrial cavity size is normal. Aortic Valve: The aortic valve is trileaflet. There is no evidence of aortic regurgitation. There is no evidence of aortic stenosis. Mitral Valve: The mitral valve leaflets appear normal. There is trace of mitral regurgitation. There is no evidence of mitral stenosis. Tricuspid Valve: The tricuspid valve leaflets are normal. There is mild to moderate tricuspid regurgitation. The right ventricular systolic pressure is calculated at 31 mmHg. There is evidence of mild pulmonary hypertension. Pulmonic Valve: There is trace pulmonic regurgitation. Pericardium: There is no pericardial effusion. Aorta: There is no dilatation of the ascending aorta. There is no dilatation of the aortic root. Venous: The inferior vena cava appears normal in size. Measurements Chambers 2D Name Value Normal Range IVSd (2D) 0.81 cm (0.6 - 1.1) LVPWd (2D) 0.79 cm (0.6 - 1.1) LVIDd (2D) 4.22 cm (3.7 - 5.6) LVIDs (2D) 3.1 cm (2 - 3.8) LV FS (2D) 26.71 % - EF Teichholz (2D) 52.55 % - Ao root diameter (2D) 3.34 cm (2 - 3.7) Volumes/Mass Name Value Normal Range LA ESV SP 4CH (A/L) 10.87 ml - LA ESV SP 2CH (A/L) 18.74 ml - LA ESV BP (A/L) 16.38 ml - LA ESV BP (A/L) index 8.62 ml/m2 - LA ESV SP 4CH (MOD) 10.32 ml - LA ESV SP 2CH (MOD) 17.66 ml - LA ESV BP (MOD) 15.12 ml - LA ESV BP (MOD) index 7.96 ml/m2 - Diastolic/Systolic Function Name Value Normal Range MV E-wave Vmax 0.76 m/sec - MV deceleration time 133.63 msec - MV A-wave Vmax 1.1 m/sec - MV E:A ratio 0.69 ratio - Aortic Valve Name Value Normal Range AV Vmax 1.44 m/sec - AV VTI 22.94 cm - AV peak gradient 8.33 mmHg - AV mean gradient 4.73 mmHg - LVOT diameter 2.2 cm - LVOT Vmax 1.04 m/sec - LVOT VTI 18.88 cm - LVOT peak gradient 4.34 mmHg - LVOT mean gradient 2.31 mmHg - SV LVOT 72.05 ml - EVANGELISTA (continuity Vmax) 2.75 cm2 - EVANGELISTA (continuity VTI) 3.14 cm2 - Tricuspid Valve Name Value Normal Range TR Vmax 2.64 m/sec - TR peak gradient 28 mmHg - RAP 3 mmHg - RVSP 31 mmHg - Gupta/IV: Voiding Method Indwelling Catheter IV Catheter Type [Left Peripheral IV Antecubital] Active Medications - Current Medications Current Medications: Generic Name Dose Route Start Last Admin Trade Name Freq PRN Reason Stop Dose Admin Acetaminophen 650 mg 11/15/20 23:55 11/18/20 22:19 Acetaminophen 325 Mg Tab PO 650 mg Q4H PRN Administration Pain MILD(1-3)/Fever >100.5/BUTTS Lipase/Protease/Amylase 1 each 11/23/20 11:53 Lipase 10,500/Protease 25,000/Amylase 43,750 (Units) Dr Cap FEEDTUBE PRN PRN For Clogged Feeding Tube Famotidine 20 mg 11/22/20 22:00 12/01/20 21:07 Famotidine 20 Mg/2 Ml Inj IV 20 mg BID RAEANN Administration Fentanyl 50 mcg 11/21/20 21:53 Fentanyl 100 Mcg/2 Ml Inj IV Q10MIN PRN ANALGESIA Hydrophilic Ointment 1 applic 11/21/20 21:53 11/30/20 21:33 Lip Therapy Vaseline TP 1 applic Q2HR PRN Administration Dry Lips Fentanyl Citrate 2,000 mcg in 100 mls @ 3.625 mls/hr 11/21/20 22:00 12/02/20 06:10 Fentanyl Drip Premix IV 5 mcg/kg/hr TITR RAEANN 18.125 mls/hr Administration Protocol 1 MCG/KG/HR Midazolam HCl 100 mg/ Sodium 100 mls @ 2 mls/hr 11/21/20 22:00 12/02/20 06:08 Chloride IV 5 mg/hr TITR RAEANN 5 mls/hr Administration Protocol 2 MG/HR Norepinephrine 4 mg in 250 mls @ 7.5 mls/hr 11/22/20 17:00 Levophed Drip 4 Mg/Ns 250 Ml IV TITR RAEANN Protocol 2 MCG/MIN Propofol 1,000 mg in 100 mls @ 2.175 mls/hr 11/27/20 12:00 12/02/20 06:37 Diprivan 10 Mg/Ml IV 24 mcg/kg/min TITR RAEANN 10.44 mls/hr Titration Protocol 5 MCG/KG/MIN Vancomycin HCl 1,500 mg/ 530 mls @ 333.333 mls/hr 11/30/20 17:00 12/02/20 05:14 Sodium Chloride IV 12/03/20 16:59 333.333 mls/hr Q12H RAEANN Administration Insulin Glargine 30 units 12/02/20 07:31 Insulin Glargine 100 Units/Ml SUB-Q 0800,2200 [facility] Insulin Human Lispro 0 unit 11/22/20 06:00 12/02/20 06:20 Insulin Lispro 100 Unit/Ml SUB-Q 4 unit Q6HR RAEANN Administration Protocol Methylprednisolone Sodium Succinate 60 mg 11/20/20 12:00 12/02/20 00:05 Methylprednisolone Sod Succinate 125 Mg/2 Ml Inj IV 60 mg Q6HR RAEANN Administration Metoclopramide HCl 10 mg 11/15/20 23:55 Metoclopramide 10 Mg/2 Ml Inj IV Q6H PRN Nausea And Vomiting Midazolam HCl 2 mg 11/21/20 21:53 12/02/20 06:20 Midazolam 2 Mg/2 Ml Inj IV 2 mg Q10MIN PRN Administration Sedation Multi-Ingred Cream/Lotion/Oil/Oint 1 applic 11/21/20 21:53 Mineral Oil/Petrolatum, White Ophth Oint 3.5 Gm OU Q4HR PRN Dry Eye(s) Ondansetron HCl 4 mg 11/15/20 23:55 Ondansetron 4 Mg/2 Ml Inj IV Q8H PRN Nausea And Vomiting Simple Syrup 15 ml 11/23/20 11:53 Simple Syrup 15 Ml FEEDTUBE PRN PRN Hypoglycemia Simple Syrup 30 ml 11/23/20 11:53 Simple Syrup 15 Ml FEEDTUBE PRN PRN Hypoglycemia Sodium Bicarbonate 325 mg 11/23/20 11:53 Sodium Bicarbonate 325 Mg Tab FEEDTUBE PRN PRN For Clogged Feeding Tube Sodium Chloride 10 ml 11/16/20 10:00 12/01/20 09:30 Sodium Chloride 0.9% 10 Ml Flush Syringe IV 10 ml BID RAEANN Administration Sodium Chloride 10 ml 11/15/20 23:55 Sodium Chloride 0.9% 10 Ml Flush Syringe IV PRN PRN LINE FLUSH Nutrition/Malnutrition Assess - Dietary Evaluation Nutrition/Malnutrition Findings: Nutrition Notes Start: 11/20/20 12:03 Freq: Status: Active Protocol: Document 12/01/20 13:00 AL (Rec: 12/01/20 13:16 AL [id number]) Co-Sign 12/01/20 13:00 LP Nutrition Notes Initial or Follow up Reassessment Current Diagnosis Diabetes,Sepsis,Respiratory Failure Other Pertinent Diagnosis Bilat pneu, COVID-19 (+) Current Diet Glucerna 1.2 at 100 ml/hr when not proned, 20 ml when proned Labs/Tests BG 279 Pertinent Medications Solumedrol Propofol Height 5 ft 6 in Weight 83.5 kg Usual Body Weight 80.5 kg [place] Body Weight (kg) 64.54 BMI 29.7 Subjective/Other Information F/U for TF tolerance. Pt no longer is being proned. Will adjustTF order to reflect change. Percent of energy/protein needs met: 33%/33% Burn Absent Trauma Absent GI Symptoms None Difficulty In Swallowing,Chewing Food Allergy No Current % PO Negligible Minimum of two criteria Yes Energy Intake (severe) < or equal to 50% Estimated Energy Requirement > or equal to 5 days Interpretation of Weight Loss (severe) >2% in 1 week #3 Nutrition Diagnosis Inadequate oral intake Diagnosis Progress(for reassessment Continues documentation) #2 Nutrition Diagnosis Malnutrition Diagnosis Progress(for reassessment Continues documentation) #1 Nutrition Diagnosis Unintended weight loss Diagnosis Progress(for reassessment Continues documentation) Is patient on ventilator? Yes Is Patient Ambulatory and/or Out of Bed No REE-(D[facility]-. [facility]-confined to bed) 1921.872 Kcal/Kg value to use for calculation 21 Approximate Energy Requirements Using 1754 kcal/Kg Calculation Used for Recommendations Kcal/kg Additional Notes Protein: 87-145 g/day (1.2-2g/ kg) Fluid: 1ml/kcal or per MD Nutrition Intervention Change Diet Order: Change TF to 60 ml/hr Nutrition Support: Glucerna 1.2 at 60 ml/hr. Flush 100 ml q4h Kcal 1,728 Protein (gm) 86 Fluid (mL) 1,159 Goal #1 TF tolerance Goal #2 Meet at least 75% of energy and protein needs via TF Anticipated Discharge Needs: Unknown at this time Follow-Up By: 12/03/20 Additional Comments F/U TF change and renal labs.
[2020-12-02] MEDS: FAMOTIDINE 20 MG/2 ML INJ IV SCH ×2 (09:15→21:45)
[2020-12-02] MEDS: INSULIN GLARGINE 100 UNITS/ML SUB-Q SCH ×2 (09:22→21:25)
--- NOTE | 2020-12-02 11:08 | Progress Note ---
Assessment and Plan 59 y/o male with acute respiratory failure, abnormal CXR and abnormal lab studies. 12/02/20: Wean FiO2 for sats >88% and PaO2 >55. Unable to prone currently secondary to bilateral chest tubes. COntinue high dose steroids. CM To figure out who is the immediate next of kin that can make decisions and then we will discuss the current clinical situation with them. 12/01/20: Continue PEEP and FiO2 elevated to keep sats >88% and PaO2 >55. Small lung volumes and high PEEP. very very guarded prognosis. 11/30/20: Worsening hypoxemia. Chest tubes stable. Likely just worsening disease. Unable to prone now. Increase PEEP to 18 and FiO2 back up to 100. Continue 3 sedatives for RASS of -2. Obtain 12 lead to look at T waves as K was only 4.6 on yesterday. Guarded, guarded prognosis 11/29/20: Second chest tube in on yesterday. CXR is stable. ABG unchanged. Will likely increase PEEP now that chest tubes are in. No further paralytics. Still making good urine. Prognosis remains guarded. Will check chemistry to assess Potassium levels given peaked t's seen on monitor. 11/28/20: Second chest tube today. Once chest tube in, will likely increase PEEP to 18 and repeat gas about 2 hours after this. Continue paralytic today. No proning now that patient will have bilateral chest tubes. VEry guarded prognosis. 11/27/20: Spoke with surgery who have agreed to evaluate and placed chest tube on either right or left side pending CXR reading. Will monitor for 36-48 hours and if no resolution, will need chest tube placed on opposite side as well. Once placed, will likely paralyze again but hold on proning for now. Guarded prognosis. 11/26/20: Paralytics are off. Continue current level of sedation. Will prone for 12 hours today and repeat ABG in the am. Continue lung protective strategy. Guarded prognosis. 11/25/20: Prone again to 16 hours, will prone at 12-12:30. Continue paralytics for 24 more hours. Discussed the idea of permissive hypercapnea again today and as long as pH is above 7.2 no changes should be made to TV and or RR without discussing with physician. Continue to monitor urine output, guarded prognosis. Hold on lasix therapy today. 11/24/20: Prone again today. Will try 48 hours of paralyzing the patient to see if this will help with oxygenation. Will speak with RT's about permissive hypercapnea and that pH's of 7.2 and greater are ok. Continue high doses steroids. Prognosis is still very very guarded. If not improvement with paralytics, will attempt transfer. 11/23/20: Prone again today for 12 hours. Continue High Dose steroids. Hold on lasix given marginal BP's. Prognosis is very very guarded to poor. Will continue all supportive measures. If not able to wean from 100%, will attempt transfer for ECMO. 11/20/20: WIll change to solumedrol 60q6 today. Hold on lasix today. Given his increasing oxygen requirement, will likely end up intubated. OVerall prognosis is very poor. 11/19/20: lasix 40mg IV x1 today. Will speak with ID but may consider increasing steroids to see if this will help with oxygenation. Continue Remdesivir. Prognosis remains guarded. 11/18/20: Continue bipap, goal is to attempt to prevent prolong intubation for as long as possible. Lasix again today. Steroids and Remdesivir. Guarded Prognosis. 11/17/20: Continue bipap therapy. Monitor mental state. High risk for Intubation. Continue BID anticoagulation. Prone if able. BNP was elevated but not grossly elevated. Will still give lasix with hopes of achieving net nega tive state. STeroids and remdesivir. Overall prognosis is guarded, extremely guarded. 1. Pulm- Agree with concern for covid. Agree with empiric abx but procal is only mildly elevated. Await cultures. Continue bipap therapy for now but will need to monitor closely. [facility] has ordered CTA, but I spoke with pharmacy and we will empirically treat with BID lovenox therapy. COntinue empiric steroid therapy for COVID until studies back. Not sure that he will be able to prone on bipap therapy. Monitor volume status and run as dry as possible. 2. Renal-normal function but all electrolytes abnormal. HYponatremia and Hypochloremia volume up vs volume down. Sent BNP. Would suggest obtaning echo as well. Not sure what to make of elevated lactate unless that is from increased work of breathing or damage to other tissue unknown. May need to check LFT's and Coags as well. 3. Guarded Prognosis. CCT 31 minutes. Subjective Date of service: 12/02/20 Principal diagnosis: COVID-19 Interval history: No acute events. SubQ emphysema worse today on left. Stable throughout other places. Had some blood from chest tube but stable. I did strip the tube on yesterday to check for clots. Still making urine. No fever. Objective Vital Signs - 12hr 12/01/20 12/01/20 12/01/20 23:15 23:30 23:45 Temperature Pulse Rate 84 80 77 Pulse Rate [ From Monitor] Respiratory 30 H 30 H 30 H Rate Blood Pressure 115/60 113/57 111/59 O2 Sat by Pulse 97 98 98 Oximetry 12/01/20 12/02/20 12/02/20 23:57 00:00 00:03 Temperature 99.6 F Pulse Rate 81 83 79 Pulse Rate [ 77 From Monitor] Respiratory 30 H 30 H Rate Blood Pressure 102/52 100/51 100/51 O2 Sat by Pulse 98 98 98 Oximetry 12/02/20 12/02/20 12/02/20 00:15 00:30 00:45 Temperature Pulse Rate 82 79 78 Pulse Rate [ From Monitor] Respiratory 30 H 30 H 22 Rate Blood Pressure 102/51 94/51 94/50 O2 Sat by Pulse 97 97 97 Oximetry 12/02/20 12/02/20 12/02/20 01:00 01:15 01:30 Temperature Pulse Rate 78 78 79 Pulse Rate [ From Monitor] Respiratory 27 H 30 H 21 Rate Blood Pressure 98/49 97/55 98/51 O2 Sat by Pulse 96 96 95 Oximetry 12/02/20 12/02/20 12/02/20 01:45 02:00 02:15 Temperature Pulse Rate 88 80 78 Pulse Rate [ From Monitor] Respiratory 25 H 24 27 H Rate Blood Pressure 98/51 135/71 127/73 O2 Sat by Pulse 94 95 94 Oximetry 12/02/20 12/02/20 12/02/20 02:30 02:45 03:00 Temperature Pulse Rate 78 80 82 Pulse Rate [ From Monitor] Respiratory 25 H 26 H 24 Rate Blood Pressure 136/73 129/64 129/66 O2 Sat by Pulse 93 95 96 Oximetry 12/02/20 12/02/20 12/02/20 03:15 03:26 03:30 Temperature 99.7 F H Pulse Rate 83 80 Pulse Rate [ From Monitor] Respiratory 21 24 Rate Blood Pressure 122/60 117/60 O2 Sat by Pulse 94 94 Oximetry 12/02/20 12/02/20 12/02/20 03:45 04:00 04:11 Temperature Pulse Rate 80 82 80 Pulse Rate [ 77 From Monitor] Respiratory 16 26 H Rate Blood Pressure 105/59 105/59 114/61 O2 Sat by Pulse 95 94 94 Oximetry 12/02/20 12/02/20 12/02/20 04:15 04:30 04:45 Temperature Pulse Rate 79 78 80 Pulse Rate [ From Monitor] Respiratory 16 18 20 Rate Blood Pressure 108/58 107/60 112/60 O2 Sat by Pulse 93 97 98 Oximetry 12/02/20 12/02/20 12/02/20 05:00 05:15 05:30 Temperature Pulse Rate 82 81 76 Pulse Rate [ From Monitor] Respiratory 17 13 16 Rate Blood Pressure 107/60 108/57 116/64 O2 Sat by Pulse 98 97 96 Oximetry 12/02/20 12/02/20 12/02/20 05:45 06:00 06:15 Temperature Pulse Rate 72 85 108 H Pulse Rate [ From Monitor] Respiratory 19 23 18 Rate Blood Pressure 140/74 140/74 165/94 O2 Sat by Pulse 99 98 93 Oximetry 12/02/20 12/02/20 12/02/20 06:30 06:45 07:00 Temperature 98.2 F Pulse Rate 87 79 79 Pulse Rate [ From Monitor] Respiratory 18 17 15 Rate Blood Pressure 123/61 123/63 107/59 O2 Sat by Pulse 95 94 95 Oximetry 12/02/20 12/02/20 12/02/20 07:15 07:30 07:45 Temperature Pulse Rate 78 77 77 Pulse Rate [ From Monitor] Respiratory 23 23 27 H Rate Blood Pressure 108/59 107/57 105/56 O2 Sat by Pulse 95 96 96 Oximetry 12/02/20 12/02/20 12/02/20 08:00 08:15 08:20 Temperature Pulse Rate 75 78 78 Pulse Rate [ 78 From Monitor] Respiratory 16 23 Rate Blood Pressure 113/53 113/53 113/53 O2 Sat by Pulse 95 97 Oximetry 12/02/20 12/02/20 12/02/20 08:30 08:45 09:00 Temperature Pulse Rate 72 74 73 Pulse Rate [ From Monitor] Respiratory 16 20 23 Rate Blood Pressure 123/65 109/62 104/58 O2 Sat by Pulse 97 97 97 Oximetry 12/02/20 12/02/20 12/02/20 09:15 09:30 09:45 Temperature Pulse Rate 74 78 79 Pulse Rate [ From Monitor] Respiratory 26 H 20 20 Rate Blood Pressure 102/56 105/57 105/61 O2 Sat by Pulse 97 98 99 Oximetry 12/02/20 10:00 Temperature Pulse Rate 77 Pulse Rate [ From Monitor] Respiratory 27 H Rate Blood Pressure 106/55 O2 Sat by Pulse 98 Oximetry Constitutional: alert ENT: other (Now intubated) Ascultation: Bilateral: rales, rhonchi Percussion: Bilateral: not dull Cardiovascular: regular rate and rhythm Gastrointestinal: soft, non-tender CBC and BMP: 12/02/20 02:14 12/02/20 04:11 ABG, PT/INR, D-dimer: ABG ABG pH 7.338 (7.320-7.450) 12/02/20 03:03 POC ABG pCO2 74.8 mmHg (32.0-48.0) H 12/02/20 03:03 POC ABG pO2 58.9 mmHg (83-108) L 12/02/20 03:03 POC ABG HCO3 39.3 12/02/20 03:03 PT/INR, D-dimer D-Dimer 926.11 ng/mlDDU (0-234) H 11/26/20 06:04 Abnormal lab findings: Abnormal Labs 11/15/20 11/15/20 11/15/20 10:39 10:39 10:39 WBC 14.3 H RBC 5.17 H Hgb Hct Lymph % (Auto) 7.8 L [place] % (Auto) 7.6 H Lymph # (Auto) 1.1 L [place] # (Auto) 1.1 H Baso # (Auto) Seg Neutrophils % 83.3 H Seg Neuts % (Manual) Lymphocytes % (Manual) Seg Neutrophils # 11.9 H Seg Neutrophils # Man Lymphocytes # (Manual) D-Dimer ABG pH POC ABG pCO2 POC ABG pO2 ABG Hemoglobin ABG Oxyhemoglobin ABG Sodium ABG Potassium ABG Chloride ABG Glucose Sodium 128 L Chloride 96.0 L Carbon Dioxide BUN Creatinine 0.7 L Glucose 238 H POC Glucose Hemoglobin A1c Lactic Acid 4.10 H* Calcium 7.0 L Ferritin Total Bilirubin 1.40 H AST 49 H ALT 70 H Alkaline Phosphatase Lactate Dehydrogenase 663 H C-Reactive Protein 19.80 H Total Protein Albumin 2.9 L Arterial Blood Glucose Arterial Blood Ionized Calcium Ur Specific [place] Vancomycin Trough Coronavirus (PCR) 11/15/20 11/15/20 11/15/20 10:39 10:39 11:20 WBC RBC Hgb Hct Lymph % (Auto) [place] % (Auto) Lymph # (Auto) [place] # (Auto) Baso # (Auto) Seg Neutrophils % Seg Neuts % (Manual) Lymphocytes % (Manual) Seg Neutrophils # Seg Neutrophils # Man Lymphocytes # (Manual) D-Dimer > 65670 H ABG pH POC ABG pCO2 29.9 L POC ABG pO2 137.3 H ABG Hemoglobin ABG Oxyhemoglobin ABG Sodium 126.5 L ABG Potassium ABG Chloride ABG Glucose 248 H Sodium Chloride Carbon Dioxide BUN Creatinine Glucose POC Glucose Hemoglobin A1c Lactic Acid Calcium Ferritin 672.8 H Total Bilirubin AST ALT Alkaline Phosphatase Lactate Dehydrogenase C-Reactive Protein Total Protein Albumin Arterial Blood Glucose 248 H Arterial Blood Ionized Calcium 4.1 L Ur Specific [place] Vancomycin Trough Coronavirus (PCR) 11/15/20 11/15/20 11/16/20 13:41 23:41 01:45 WBC RBC Hgb Hct Lymph % (Auto) [place] % (Auto) Lymph # (Auto) [place] # (Auto) Baso # (Auto) Seg Neutrophils % Seg Neuts % (Manual) Lymphocytes % (Manual) Seg Neutrophils # Seg Neutrophils # Man Lymphocytes # (Manual) D-Dimer ABG pH POC ABG pCO2 POC ABG pO2 ABG Hemoglobin ABG Oxyhemoglobin ABG Sodium ABG Potassium ABG Chloride ABG Glucose Sodium Chloride Carbon Dioxide BUN Creatinine Glucose POC Glucose 284 H Hemoglobin A1c Lactic Acid 2.30 H* Calcium Ferritin Total Bilirubin AST ALT Alkaline Phosphatase Lactate Dehydrogenase C-Reactive Protein Total Protein Albumin Arterial Blood Glucose Arterial Blood Ionized Calcium Ur Specific [place] 1.037 H Vancomycin Trough Coronavirus (PCR) 11/16/20 11/16/20 11/16/20 05:29 05:29 05:29 WBC 12.9 H RBC Hgb Hct Lymph % (Auto) 4.5 L [place] % (Auto) Lymph # (Auto) 0.6 L [place] # (Auto) Baso # (Auto) 0.2 H Seg Neutrophils % 89.8 H Seg Neuts % (Manual) Lymphocytes % (Manual) Seg Neutrophils # 11.5 H Seg Neutrophils # Man Lymphocytes # (Manual) D-Dimer ABG pH POC ABG pCO2 POC ABG pO2 ABG Hemoglobin ABG Oxyhemoglobin ABG Sodium ABG Potassium ABG Chloride ABG Glucose Sodium 131 L Chloride Carbon Dioxide 21 L BUN 23 H Creatinine 0.6 L Glucose 342 H POC Glucose Hemoglobin A1c Lactic Acid 2.60 H* Calcium 7.0 L Ferritin Total Bilirubin AST ALT Alkaline Phosphatase Lactate Dehydrogenase C-Reactive Protein Total Protein Albumin 2.4 L Arterial Blood Glucose Arterial Blood Ionized Calcium Ur Specific [place] Vancomycin Trough Coronavirus (PCR) 11/16/20 11/16/20 11/16/20 05:29 08:11 12:11 WBC RBC Hgb Hct Lymph % (Auto) [place] % (Auto) Lymph # (Auto) [place] # (Auto) Baso # (Auto) Seg Neutrophils % Seg Neuts % (Manual) Lymphocytes % (Manual) Seg Neutrophils # Seg Neutrophils # Man Lymphocytes # (Manual) D-Dimer ABG pH POC ABG pCO2 POC ABG pO2 ABG Hemoglobin ABG Oxyhemoglobin ABG Sodium ABG Potassium ABG Chloride ABG Glucose Sodium Chloride Carbon Dioxide BUN Creatinine Glucose POC Glucose 329 H 320 H Hemoglobin A1c 11.7 H Lactic Acid Calcium Ferritin Total Bilirubin AST ALT Alkaline Phosphatase Lactate Dehydrogenase C-Reactive Protein Total Protein Albumin Arterial Blood Glucose Arterial Blood Ionized Calcium Ur Specific [place] Vancomycin Trough Coronavirus (PCR) 11/16/20 11/16/20 11/16/20 16:13 21:29 Unknown WBC RBC Hgb Hct Lymph % (Auto) [place] % (Auto) Lymph # (Auto) [place] # (Auto) Baso # (Auto) Seg Neutrophils % Seg Neuts % (Manual) Lymphocytes % (Manual) Seg Neutrophils # Seg Neutrophils # Man Lymphocytes # (Manual) D-Dimer ABG pH POC ABG pCO2 POC ABG pO2 ABG Hemoglobin ABG Oxyhemoglobin ABG Sodium ABG Potassium ABG Chloride ABG Glucose Sodium Chloride Carbon Dioxide BUN Creatinine Glucose POC Glucose 257 H 376 H Hemoglobin A1c Lactic Acid Calcium Ferritin Total Bilirubin AST ALT Alkaline Phosphatase Lactate Dehydrogenase C-Reactive Protein Total Protein Albumin Arterial Blood Glucose Arterial Blood Ionized Calcium Ur Specific [place] Vancomycin Trough Coronavirus (PCR) Positive A 11/17/20 11/17/20 11/17/20 07:42 12:07 17:25 WBC RBC Hgb Hct Lymph % (Auto) [place] % (Auto) Lymph # (Auto) [place] # (Auto) Baso # (Auto) Seg Neutrophils % Seg Neuts % (Manual) Lymphocytes % (Manual) Seg Neutrophils # Seg Neutrophils # Man Lymphocytes # (Manual) D-Dimer ABG pH POC ABG pCO2 POC ABG pO2 ABG Hemoglobin ABG Oxyhemoglobin ABG Sodium ABG Potassium ABG Chloride ABG Glucose Sodium Chloride Carbon Dioxide BUN Creatinine Glucose POC Glucose 231 H 380 H 302 H Hemoglobin A1c Lactic Acid Calcium Ferritin Total Bilirubin AST ALT Alkaline Phosphatase Lactate Dehydrogenase C-Reactive Protein Total Protein Albumin Arterial Blood Glucose Arterial Blood Ionized Calcium Ur Specific [place] Vancomycin Trough Coronavirus (PCR) 11/17/20 11/18/20 11/18/20 21:53 04:25 07:45 WBC RBC Hgb Hct Lymph % (Auto) [place] % (Auto) Lymph # (Auto) [place] # (Auto) Baso # (Auto) Seg Neutrophils % Seg Neuts % (Manual) Lymphocytes % (Manual) Seg Neutrophils # Seg Neutrophils # Man Lymphocytes # (Manual) D-Dimer ABG pH POC ABG pCO2 POC ABG pO2 ABG Hemoglobin ABG Oxyhemoglobin ABG Sodium ABG Potassium ABG Chloride ABG Glucose Sodium 136 L Chloride Carbon Dioxide BUN 24 H Creatinine 0.6 L Glucose 212 H POC Glucose 293 H 216 H Hemoglobin A1c Lactic Acid Calcium 7.4 L Ferritin Total Bilirubin AST 41 H ALT Alkaline Phosphatase 142 H Lactate Dehydrogenase C-Reactive Protein Total Protein Albumin 2.3 L Arterial Blood Glucose Arterial Blood Ionized Calcium Ur Specific [place] Vancomycin Trough Coronavirus (PCR) 11/18/20 11/18/20 11/18/20 12:28 15:58 21:37 WBC RBC Hgb Hct Lymph % (Auto) [place] % (Auto) Lymph # (Auto) [place] # (Auto) Baso # (Auto) Seg Neutrophils % Seg Neuts % (Manual) Lymphocytes % (Manual) Seg Neutrophils # Seg Neutrophils # Man Lymphocytes # (Manual) D-Dimer ABG pH POC ABG pCO2 POC ABG pO2 ABG Hemoglobin ABG Oxyhemoglobin ABG Sodium ABG Potassium ABG Chloride ABG Glucose Sodium Chloride Carbon Dioxide BUN Creatinine Glucose POC Glucose 165 H 220 H 311 H Hemoglobin A1c Lactic Acid Calcium Ferritin Total Bilirubin AST ALT Alkaline Phosphatase Lactate Dehydrogenase C-Reactive Protein Total Protein Albumin Arterial Blood Glucose Arterial Blood Ionized Calcium Ur Specific [place] Vancomycin Trough Coronavirus (PCR) 11/19/20 11/19/20 11/19/20 05:35 07:40 12:39 WBC RBC Hgb Hct Lymph % (Auto) [place] % (Auto) Lymph # (Auto) [place] # (Auto) Baso # (Auto) Seg Neutrophils % Seg Neuts % (Manual) Lymphocytes % (Manual) Seg Neutrophils # Seg Neutrophils # Man Lymphocytes # (Manual) D-Dimer ABG pH POC ABG pCO2 POC ABG pO2 ABG Hemoglobin ABG Oxyhemoglobin ABG Sodium ABG Potassium ABG Chloride ABG Glucose Sodium 132 L Chloride Carbon Dioxide BUN 25 H Creatinine 0.5 L Glucose 179 H POC Glucose 149 H 306 H Hemoglobin A1c Lactic Acid Calcium 7.5 L Ferritin Total Bilirubin AST ALT Alkaline Phosphatase 139 H Lactate Dehydrogenase C-Reactive Protein Total Protein Albumin 2.4 L Arterial Blood Glucose Arterial Blood Ionized Calcium Ur Specific [place] Vancomycin Trough Coronavirus (PCR) 11/19/20 11/19/20 11/20/20 16:17 21:25 08:30 WBC RBC Hgb Hct Lymph % (Auto) [place] % (Auto) Lymph # (Auto) [place] # (Auto) Baso # (Auto) Seg Neutrophils % Seg Neuts % (Manual) Lymphocytes % (Manual) Seg Neutrophils # Seg Neutrophils # Man Lymphocytes # (Manual) D-Dimer ABG pH POC ABG pCO2 POC ABG pO2 ABG Hemoglobin ABG Oxyhemoglobin ABG Sodium ABG Potassium ABG Chloride ABG Glucose Sodium Chloride Carbon Dioxide BUN Creatinine Glucose POC Glucose 364 H 347 H 141 H Hemoglobin A1c Lactic Acid Calcium Ferritin Total Bilirubin AST ALT Alkaline Phosphatase Lactate Dehydrogenase C-Reactive Protein Total Protein Albumin Arterial Blood Glucose Arterial Blood Ionized Calcium Ur Specific [place] Vancomycin Trough Coronavirus (PCR) 11/20/20 11/20/20 11/20/20 08:50 11:32 16:19 WBC RBC Hgb Hct Lymph % (Auto) [place] % (Auto) Lymph # (Auto) [place] # (Auto) Baso # (Auto) Seg Neutrophils % Seg Neuts % (Manual) Lymphocytes % (Manual) Seg Neutrophils # Seg Neutrophils # Man Lymphocytes # (Manual) D-Dimer ABG pH POC ABG pCO2 POC ABG pO2 ABG Hemoglobin ABG Oxyhemoglobin ABG Sodium ABG Potassium ABG Chloride ABG Glucose Sodium 132 L Chloride 97.6 L Carbon Dioxide BUN 26 H Creatinine 0.5 L Glucose 201 H POC Glucose 296 H 327 H Hemoglobin A1c Lactic Acid Calcium 7.9 L Ferritin Total Bilirubin AST ALT Alkaline Phosphatase 137 H Lactate Dehydrogenase C-Reactive Protein Total Protein Albumin 2.6 L Arterial Blood Glucose Arterial Blood Ionized Calcium Ur Specific [place] Vancomycin Trough Coronavirus (PCR) 11/20/20 11/21/20 11/21/20 22:09 07:59 13:51 WBC RBC Hgb Hct Lymph % (Auto) [place] % (Auto) Lymph # (Auto) [place] # (Auto) Baso # (Auto) Seg Neutrophils % Seg Neuts % (Manual) Lymphocytes % (Manual) Seg Neutrophils # Seg Neutrophils # Man Lymphocytes # (Manual) D-Dimer ABG pH POC ABG pCO2 POC ABG pO2 ABG Hemoglobin ABG Oxyhemoglobin ABG Sodium ABG Potassium ABG Chloride ABG Glucose Sodium Chloride Carbon Dioxide BUN Creatinine Glucose POC Glucose 311 H 218 H 304 H Hemoglobin A1c Lactic Acid Calcium Ferritin Total Bilirubin AST ALT Alkaline Phosphatase Lactate Dehydrogenase C-Reactive Protein Total Protein Albumin Arterial Blood Glucose Arterial Blood Ionized Calcium Ur Specific [place] Vancomycin Trough Coronavirus (PCR) 11/21/20 11/21/20 11/21/20 16:09 21:34 23:00 WBC RBC Hgb Hct Lymph % (Auto) [place] % (Auto) Lymph # (Auto) [place] # (Auto) Baso # (Auto) Seg Neutrophils % Seg Neuts % (Manual) Lymphocytes % (Manual) Seg Neutrophils # Seg Neutrophils # Man Lymphocytes # (Manual) D-Dimer ABG pH 7.206 L POC ABG pCO2 59.3 H POC ABG pO2 76.7 L ABG Hemoglobin ABG Oxyhemoglobin ABG Sodium 133.1 L ABG Potassium ABG Chloride ABG Glucose 320 H Sodium Chloride Carbon Dioxide BUN Creatinine Glucose POC Glucose 239 H 279 H Hemoglobin A1c Lactic Acid Calcium Ferritin Total Bilirubin AST ALT Alkaline Phosphatase Lactate Dehydrogenase C-Reactive Protein Total Protein Albumin Arterial Blood Glucose 320 H Arterial Blood Ionized Calcium Ur Specific [place] Vancomycin Trough Coronavirus (PCR) 11/22/20 11/22/20 11/22/20 04:52 04:52 04:52 WBC RBC Hgb Hct Lymph % (Auto) [place] % (Auto) Lymph # (Auto) [place] # (Auto) Baso # (Auto) Seg Neutrophils % Seg Neuts % (Manual) Lymphocytes % (Manual) Seg Neutrophils # Seg Neutrophils # Man Lymphocytes # (Manual) D-Dimer 1858.36 H ABG pH POC ABG pCO2 POC ABG pO2 ABG Hemoglobin ABG Oxyhemoglobin ABG Sodium ABG Potassium ABG Chloride ABG Glucose Sodium Chloride Carbon Dioxide BUN Creatinine Glucose POC Glucose Hemoglobin A1c Lactic Acid Calcium Ferritin 734.2 H Total Bilirubin AST ALT Alkaline Phosphatase Lactate Dehydrogenase 404 H C-Reactive Protein 2.80 H Total Protein Albumin Arterial Blood Glucose Arterial Blood Ionized Calcium Ur Specific [place] Vancomycin Trough Coronavirus (PCR) 11/22/20 11/22/20 11/22/20 05:12 05:39 11:50 WBC RBC Hgb Hct Lymph % (Auto) [place] % (Auto) Lymph # (Auto) [place] # (Auto) Baso # (Auto) Seg Neutrophils % Seg Neuts % (Manual) Lymphocytes % (Manual) Seg Neutrophils # Seg Neutrophils # Man Lymphocytes # (Manual) D-Dimer ABG pH POC ABG pCO2 POC ABG pO2 51.0 L ABG Hemoglobin ABG Oxyhemoglobin ABG Sodium 131.2 L ABG Potassium 4.6 H ABG Chloride ABG Glucose 317 H Sodium Chloride Carbon Dioxide BUN Creatinine Glucose POC Glucose 340 H 417 H Hemoglobin A1c Lactic Acid Calcium Ferritin Total Bilirubin AST ALT Alkaline Phosphatase Lactate Dehydrogenase C-Reactive Protein Total Protein Albumin Arterial Blood Glucose 317 H Arterial Blood Ionized Calcium 4.4 L Ur Specific [place] Vancomycin Trough Coronavirus (PCR) 11/22/20 11/22/20 11/22/20 12:22 12:22 17:10 WBC 14.4 H RBC Hgb Hct Lymph % (Auto) [place] % (Auto) Lymph # (Auto) [place] # (Auto) Baso # (Auto) Seg Neutrophils % Seg Neuts % (Manual) 98.0 H Lymphocytes % (Manual) Seg Neutrophils # Seg Neutrophils # Man 14.1 H Lymphocytes # (Manual) 0.0 L D-Dimer ABG pH POC ABG pCO2 POC ABG pO2 ABG Hemoglobin ABG Oxyhemoglobin ABG Sodium ABG Potassium ABG Chloride ABG Glucose Sodium 132 L Chloride Carbon Dioxide BUN 36 H Creatinine 0.6 L Glucose 219 H POC Glucose 157 H Hemoglobin A1c Lactic Acid Calcium 7.2 L Ferritin Total Bilirubin AST ALT Alkaline Phosphatase Lactate Dehydrogenase C-Reactive Protein Total Protein Albumin Arterial Blood Glucose Arterial Blood Ionized Calcium Ur Specific [place] Vancomycin Trough Coronavirus (PCR) 11/22/20 11/22/20 11/22/20 18:33 21:44 23:47 WBC RBC Hgb Hct Lymph % (Auto) [place] % (Auto) Lymph # (Auto) [place] # (Auto) Baso # (Auto) Seg Neutrophils % Seg Neuts % (Manual) Lymphocytes % (Manual) Seg Neutrophils # Seg Neutrophils # Man Lymphocytes # (Manual) D-Dimer ABG pH POC ABG pCO2 POC ABG pO2 60.8 L ABG Hemoglobin ABG Oxyhemoglobin 88.1 L ABG Sodium 135.1 L ABG Potassium ABG Chloride ABG Glucose 141 H Sodium Chloride Carbon Dioxide BUN Creatinine Glucose POC Glucose 117 H 123 H Hemoglobin A1c Lactic Acid Calcium Ferritin Total Bilirubin AST ALT Alkaline Phosphatase Lactate Dehydrogenase C-Reactive Protein Total Protein Albumin Arterial Blood Glucose 141 H Arterial Blood Ionized Calcium Ur Specific [place] Vancomycin Trough Coronavirus (PCR) 11/23/20 11/23/20 11/23/20 04:00 04:00 05:23 WBC 14.4 H RBC Hgb Hct Lymph % (Auto) [place] % (Auto) Lymph # (Auto) [place] # (Auto) Baso # (Auto) Seg Neutrophils % Seg Neuts % (Manual) Lymphocytes % (Manual) Seg Neutrophils # Seg Neutrophils # Man Lymphocytes # (Manual) D-Dimer ABG pH POC ABG pCO2 POC ABG pO2 ABG Hemoglobin ABG Oxyhemoglobin ABG Sodium ABG Potassium ABG Chloride ABG Glucose Sodium 136 L Chloride Carbon Dioxide BUN 33 H Creatinine 0.6 L Glucose 115 H POC Glucose 173 H Hemoglobin A1c Lactic Acid Calcium 7.1 L Ferritin Total Bilirubin AST 64 H ALT 75 H Alkaline Phosphatase Lactate Dehydrogenase C-Reactive Protein Total Protein 5.9 L D Albumin 2.4 L Arterial Blood Glucose Arterial Blood Ionized Calcium Ur Specific [place] Vancomycin Trough Coronavirus (PCR) 11/23/20 11/23/20 11/23/20 05:40 11:27 17:10 WBC RBC Hgb Hct Lymph % (Auto) [place] % (Auto) Lymph # (Auto) [place] # (Auto) Baso # (Auto) Seg Neutrophils % Seg Neuts % (Manual) Lymphocytes % (Manual) Seg Neutrophils # Seg Neutrophils # Man Lymphocytes # (Manual) D-Dimer ABG pH POC ABG pCO2 POC ABG pO2 56.5 L ABG Hemoglobin ABG Oxyhemoglobin ABG Sodium ABG Potassium ABG Chloride 109.0 H ABG Glucose 114 H Sodium Chloride Carbon Dioxide BUN Creatinine Glucose POC Glucose 114 H 136 H Hemoglobin A1c Lactic Acid Calcium Ferritin Total Bilirubin AST ALT Alkaline Phosphatase Lactate Dehydrogenase C-Reactive Protein Total Protein Albumin Arterial Blood Glucose 114 H Arterial Blood Ionized Calcium 4.5 L Ur Specific [place] Vancomycin Trough Coronavirus (PCR) 11/24/20 11/24/20 11/24/20 05:14 05:14 05:14 WBC RBC Hgb Hct Lymph % (Auto) [place] % (Auto) Lymph # (Auto) [place] # (Auto) Baso # (Auto) Seg Neutrophils % Seg Neuts % (Manual) Lymphocytes % (Manual) Seg Neutrophils # Seg Neutrophils # Man Lymphocytes # (Manual) D-Dimer 1433.39 H ABG pH POC ABG pCO2 POC ABG pO2 ABG Hemoglobin ABG Oxyhemoglobin ABG Sodium ABG Potassium ABG Chloride ABG Glucose Sodium Chloride Carbon Dioxide BUN Creatinine Glucose POC Glucose Hemoglobin A1c Lactic Acid Calcium Ferritin 997.5 H Total Bilirubin AST ALT Alkaline Phosphatase Lactate Dehydrogenase 463 H C-Reactive Protein Total Protein Albumin Arterial Blood Glucose Arterial Blood Ionized Calcium Ur Specific [place] Vancomycin Trough Coronavirus (PCR) 11/24/20 11/24/20 11/24/20 05:31 05:36 12:05 WBC RBC Hgb Hct Lymph % (Auto) [place] % (Auto) Lymph # (Auto) [place] # (Auto) Baso # (Auto) Seg Neutrophils % Seg Neuts % (Manual) Lymphocytes % (Manual) Seg Neutrophils # Seg Neutrophils # Man Lymphocytes # (Manual) D-Dimer ABG pH POC ABG pCO2 POC ABG pO2 57.2 L ABG Hemoglobin ABG Oxyhemoglobin ABG Sodium ABG Potassium ABG Chloride ABG Glucose 180 H Sodium Chloride Carbon Dioxide BUN Creatinine Glucose POC Glucose 199 H 143 H Hemoglobin A1c Lactic Acid Calcium Ferritin Total Bilirubin AST ALT Alkaline Phosphatase Lactate Dehydrogenase C-Reactive Protein Total Protein Albumin Arterial Blood Glucose 180 H Arterial Blood Ionized Calcium 4.5 L Ur Specific [place] Vancomycin Trough Coronavirus (PCR) 11/24/20 11/24/20 11/24/20 12:14 17:47 23:47 WBC RBC Hgb Hct Lymph % (Auto) [place] % (Auto) Lymph # (Auto) [place] # (Auto) Baso # (Auto) Seg Neutrophils % Seg Neuts % (Manual) Lymphocytes % (Manual) Seg Neutrophils # Seg Neutrophils # Man Lymphocytes # (Manual) D-Dimer ABG pH 7.261 L POC ABG pCO2 59.7 H POC ABG pO2 75.7 L ABG Hemoglobin ABG Oxyhemoglobin 92.5 L ABG Sodium ABG Potassium ABG Chloride 108.0 H ABG Glucose 150 H Sodium Chloride Carbon Dioxide BUN Creatinine Glucose POC Glucose 223 H 179 H Hemoglobin A1c Lactic Acid Calcium Ferritin Total Bilirubin AST ALT Alkaline Phosphatase Lactate Dehydrogenase C-Reactive Protein Total Protein Albumin Arterial Blood Glucose 150 H Arterial Blood Ionized Calcium Ur Specific [place] Vancomycin Trough Coronavirus (PCR) 11/25/20 11/25/20 11/25/20 03:29 05:07 05:15 WBC 13.9 H RBC Hgb Hct Lymph % (Auto) [place] % (Auto) Lymph # (Auto) [place] # (Auto) Baso # (Auto) Seg Neutrophils % Seg Neuts % (Manual) 97.0 H Lymphocytes % (Manual) Seg Neutrophils # Seg Neutrophils # Man 13.5 H Lymphocytes # (Manual) 0.0 L D-Dimer ABG pH 7.272 L POC ABG pCO2 69.0 H POC ABG pO2 132.9 H ABG Hemoglobin ABG Oxyhemoglobin ABG Sodium ABG Potassium ABG Chloride ABG Glucose 174 H Sodium Chloride Carbon Dioxide BUN Creatinine Glucose POC Glucose 168 H Hemoglobin A1c Lactic Acid Calcium Ferritin Total Bilirubin AST ALT Alkaline Phosphatase Lactate Dehydrogenase C-Reactive Protein Total Protein Albumin Arterial Blood Glucose 174 H Arterial Blood Ionized Calcium Ur Specific [place] Vancomycin Trough Coronavirus (PCR) 11/25/20 11/25/20 11/25/20 05:15 11:25 17:35 WBC RBC Hgb Hct Lymph % (Auto) [place] % (Auto) Lymph # (Auto) [place] # (Auto) Baso # (Auto) Seg Neutrophils % Seg Neuts % (Manual) Lymphocytes % (Manual) Seg Neutrophils # Seg Neutrophils # Man Lymphocytes # (Manual) D-Dimer ABG pH POC ABG pCO2 POC ABG pO2 ABG Hemoglobin ABG Oxyhemoglobin ABG Sodium ABG Potassium ABG Chloride ABG Glucose Sodium Chloride Carbon Dioxide BUN 29 H Creatinine 0.5 L Glucose 161 H POC Glucose 224 H 228 H Hemoglobin A1c Lactic Acid Calcium 7.8 L Ferritin Total Bilirubin AST 89 H ALT 129 H Alkaline Phosphatase Lactate Dehydrogenase C-Reactive Protein Total Protein 5.8 L Albumin 2.5 L Arterial Blood Glucose Arterial Blood Ionized Calcium Ur Specific [place] Vancomycin Trough Coronavirus (PCR) 11/25/20 11/25/20 11/26/20 20:45 23:28 04:00 WBC RBC Hgb Hct Lymph % (Auto) [place] % (Auto) Lymph # (Auto) [place] # (Auto) Baso # (Auto) Seg Neutrophils % Seg Neuts % (Manual) Lymphocytes % (Manual) Seg Neutrophils # Seg Neutrophils # Man Lymphocytes # (Manual) D-Dimer ABG pH POC ABG pCO2 POC ABG pO2 ABG Hemoglobin ABG Oxyhemoglobin ABG Sodium ABG Potassium ABG Chloride ABG Glucose Sodium Chloride Carbon Dioxide BUN Creatinine Glucose POC Glucose 177 H 243 H Hemoglobin A1c Lactic Acid Calcium Ferritin 778.8 H Total Bilirubin AST ALT Alkaline Phosphatase Lactate Dehydrogenase C-Reactive Protein Total Protein Albumin Arterial Blood Glucose Arterial Blood Ionized Calcium Ur Specific [place] Vancomycin Trough Coronavirus (PCR) 11/26/20 11/26/20 11/26/20 04:00 05:34 06:04 WBC RBC Hgb Hct Lymph % (Auto) [place] % (Auto) Lymph # (Auto) [place] # (Auto) Baso # (Auto) Seg Neutrophils % Seg Neuts % (Manual) Lymphocytes % (Manual) Seg Neutrophils # Seg Neutrophils # Man Lymphocytes # (Manual) D-Dimer 926.11 H ABG pH POC ABG pCO2 POC ABG pO2 ABG Hemoglobin ABG Oxyhemoglobin ABG Sodium ABG Potassium ABG Chloride ABG Glucose Sodium Chloride Carbon Dioxide 39 H D BUN 30 H Creatinine 0.5 L Glucose 193 H POC Glucose 178 H Hemoglobin A1c Lactic Acid Calcium 7.7 L Ferritin Total Bilirubin AST 65 H ALT 132 H Alkaline Phosphatase Lactate Dehydrogenase 288 H C-Reactive Protein 1.40 H Total Protein 5.7 L Albumin 2.4 L Arterial Blood Glucose Arterial Blood Ionized Calcium Ur Specific [place] Vancomycin Trough Coronavirus (PCR) 11/26/20 11/26/20 11/26/20 06:04 08:47 11:20 WBC 12.4 H RBC Hgb Hct Lymph % (Auto) [place] % (Auto) Lymph # (Auto) [place] # (Auto) Baso # (Auto) Seg Neutrophils % Seg Neuts % (Manual) 98.0 H Lymphocytes % (Manual) 1.0 L Seg Neutrophils # Seg Neutrophils # Man 12.2 H Lymphocytes # (Manual) 0.1 L D-Dimer ABG pH POC ABG pCO2 75.2 H POC ABG pO2 61.9 L ABG Hemoglobin ABG Oxyhemoglobin 90.3 L ABG Sodium ABG Potassium ABG Chloride ABG Glucose 243 H Sodium Chloride Carbon Dioxide BUN Creatinine Glucose POC Glucose 255 H Hemoglobin A1c Lactic Acid Calcium Ferritin Total Bilirubin AST ALT Alkaline Phosphatase Lactate Dehydrogenase C-Reactive Protein Total Protein Albumin Arterial Blood Glucose 243 H Arterial Blood Ionized Calcium Ur Specific [place] Vancomycin Trough Coronavirus (PCR) 11/26/20 11/26/20 11/26/20 16:20 17:15 23:41 WBC RBC Hgb Hct Lymph % (Auto) [place] % (Auto) Lymph # (Auto) [place] # (Auto) Baso # (Auto) Seg Neutrophils % Seg Neuts % (Manual) Lymphocytes % (Manual) Seg Neutrophils # Seg Neutrophils # Man Lymphocytes # (Manual) D-Dimer ABG pH POC ABG pCO2 66.6 H POC ABG pO2 78.1 L ABG Hemoglobin ABG Oxyhemoglobin ABG Sodium ABG Potassium ABG Chloride ABG Glucose 244 H Sodium Chloride Carbon Dioxide BUN Creatinine Glucose POC Glucose 219 H 210 H Hemoglobin A1c Lactic Acid Calcium Ferritin Total Bilirubin AST ALT Alkaline Phosphatase Lactate Dehydrogenase C-Reactive Protein Total Protein Albumin Arterial Blood Glucose 244 H Arterial Blood Ionized Calcium Ur Specific [place] Vancomycin Trough Coronavirus (PCR) 11/27/20 11/27/20 11/27/20 04:46 05:38 06:25 WBC 13.8 H RBC Hgb Hct Lymph % (Auto) 2.0 L [place] % (Auto) Lymph # (Auto) 0.3 L [place] # (Auto) Baso # (Auto) Seg Neutrophils % Seg Neuts % (Manual) 96.0 H Lymphocytes % (Manual) Seg Neutrophils # 12.7 H Seg Neutrophils # Man 13.2 H Lymphocytes # (Manual) 0.0 L D-Dimer ABG pH POC ABG pCO2 63.0 H POC ABG pO2 53.6 L ABG Hemoglobin ABG Oxyhemoglobin 87.8 L ABG Sodium 115.4 L ABG Potassium ABG Chloride ABG Glucose 219 H Sodium Chloride Carbon Dioxide BUN Creatinine Glucose POC Glucose 227 H Hemoglobin A1c Lactic Acid Calcium Ferritin Total Bilirubin AST ALT Alkaline Phosphatase Lactate Dehydrogenase C-Reactive Protein Total Protein Albumin Arterial Blood Glucose 219 H Arterial Blood Ionized Calcium Ur Specific [place] Vancomycin Trough Coronavirus (PCR) 11/27/20 11/27/20 11/27/20 06:25 18:05 23:29 WBC RBC Hgb Hct Lymph % (Auto) [place] % (Auto) Lymph # (Auto) [place] # (Auto) Baso # (Auto) Seg Neutrophils % Seg Neuts % (Manual) Lymphocytes % (Manual) Seg Neutrophils # Seg Neutrophils # Man Lymphocytes # (Manual) D-Dimer ABG pH POC ABG pCO2 POC ABG pO2 ABG Hemoglobin ABG Oxyhemoglobin ABG Sodium ABG Potassium ABG Chloride ABG Glucose Sodium Chloride Carbon Dioxide 38 H BUN 34 H Creatinine 0.4 L Glucose 243 H POC Glucose 329 H 227 H Hemoglobin A1c Lactic Acid Calcium 7.9 L Ferritin Total Bilirubin AST 50 H ALT 110 H Alkaline Phosphatase Lactate Dehydrogenase C-Reactive Protein Total Protein 6.1 L Albumin 2.4 L Arterial Blood Glucose Arterial Blood Ionized Calcium Ur Specific [place] Vancomycin Trough Coronavirus (PCR) 11/28/20 11/28/20 11/28/20 03:45 03:45 03:46 WBC 12.2 H RBC Hgb Hct Lymph % (Auto) [place] % (Auto) Lymph # (Auto) [place] # (Auto) Baso # (Auto) Seg Neutrophils % Seg Neuts % (Manual) 93.0 H Lymphocytes % (Manual) 2.0 L Seg Neutrophils # Seg Neutrophils # Man 11.3 H Lymphocytes # (Manual) 0.2 L D-Dimer ABG pH POC ABG pCO2 68.4 H POC ABG pO2 55.4 L ABG Hemoglobin ABG Oxyhemoglobin ABG Sodium ABG Potassium ABG Chloride ABG Glucose 197 H Sodium Chloride Carbon Dioxide 36 H BUN 37 H Creatinine 0.4 L Glucose 194 H POC Glucose Hemoglobin A1c Lactic Acid Calcium 8.1 L Ferritin Total Bilirubin AST ALT 86 H Alkaline Phosphatase Lactate Dehydrogenase C-Reactive Protein Total Protein 6.0 L Albumin 2.3 L Arterial Blood Glucose 197 H Arterial Blood Ionized Calcium Ur Specific [place] Vancomycin Trough Coronavirus (PCR) 11/28/20 11/28/20 11/29/20 05:24 12:21 04:41 WBC RBC Hgb Hct Lymph % (Auto) [place] % (Auto) Lymph # (Auto) [place] # (Auto) Baso # (Auto) Seg Neutrophils % Seg Neuts % (Manual) Lymphocytes % (Manual) Seg Neutrophils # Seg Neutrophils # Man Lymphocytes # (Manual) D-Dimer ABG pH POC ABG pCO2 55.1 H POC ABG pO2 53.6 L ABG Hemoglobin ABG Oxyhemoglobin 87.1 L ABG Sodium 131.2 L ABG Potassium ABG Chloride ABG Glucose 164 H Sodium Chloride Carbon Dioxide BUN Creatinine Glucose POC Glucose 173 H 126 H Hemoglobin A1c Lactic Acid Calcium Ferritin Total Bilirubin AST ALT Alkaline Phosphatase Lactate Dehydrogenase C-Reactive Protein Total Protein Albumin Arterial Blood Glucose 164 H Arterial Blood Ionized Calcium 4.4 L Ur Specific [place] Vancomycin Trough Coronavirus (PCR) 11/29/20 11/29/20 11/29/20 05:29 12:41 13:28 WBC RBC Hgb Hct Lymph % (Auto) [place] % (Auto) Lymph # (Auto) [place] # (Auto) Baso # (Auto) Seg Neutrophils % Seg Neuts % (Manual) Lymphocytes % (Manual) Seg Neutrophils # Seg Neutrophils # Man Lymphocytes # (Manual) D-Dimer ABG pH POC ABG pCO2 POC ABG pO2 ABG Hemoglobin ABG Oxyhemoglobin ABG Sodium ABG Potassium ABG Chloride ABG Glucose Sodium Chloride Carbon Dioxide 40 H BUN 32 H Creatinine 0.4 L Glucose 274 H POC Glucose 173 H 257 H Hemoglobin A1c Lactic Acid Calcium 7.2 L Ferritin Total Bilirubin AST 57 H ALT 102 H Alkaline Phosphatase Lactate Dehydrogenase C-Reactive Protein Total Protein 5.7 L Albumin 2.1 L Arterial Blood Glucose Arterial Blood Ionized Calcium Ur Specific [place] Vancomycin Trough Coronavirus (PCR) 11/29/20 11/29/20 11/29/20 15:40 17:36 21:26 WBC RBC Hgb Hct Lymph % (Auto) [place] % (Auto) Lymph # (Auto) [place] # (Auto) Baso # (Auto) Seg Neutrophils % Seg Neuts % (Manual) Lymphocytes % (Manual) Seg Neutrophils # Seg Neutrophils # Man Lymphocytes # (Manual) D-Dimer ABG pH POC ABG pCO2 POC ABG pO2 ABG Hemoglobin ABG Oxyhemoglobin ABG Sodium ABG Potassium ABG Chloride ABG Glucose Sodium Chloride Carbon Dioxide BUN Creatinine Glucose POC Glucose 240 H 244 H Hemoglobin A1c Lactic Acid Calcium Ferritin Total Bilirubin AST ALT Alkaline Phosphatase Lactate Dehydrogenase C-Reactive Protein Total Protein Albumin Arterial Blood Glucose Arterial Blood Ionized Calcium Ur Specific [place] Vancomycin Trough 4.0 L Coronavirus (PCR) 11/29/20 11/30/20 11/30/20 23:26 03:30 03:30 WBC RBC Hgb Hct Lymph % (Auto) [place] % (Auto) Lymph # (Auto) [place] # (Auto) Baso # (Auto) Seg Neutrophils % Seg Neuts % (Manual) 97.0 H Lymphocytes % (Manual) 1.0 L Seg Neutrophils # Seg Neutrophils # Man 9.9 H Lymphocytes # (Manual) 0.1 L D-Dimer ABG pH POC ABG pCO2 POC ABG pO2 ABG Hemoglobin ABG Oxyhemoglobin ABG Sodium ABG Potassium ABG Chloride ABG Glucose Sodium Chloride Carbon Dioxide 38 H BUN 34 H Creatinine 0.4 L Glucose 305 H POC Glucose 283 H Hemoglobin A1c Lactic Acid Calcium 7.6 L Ferritin Total Bilirubin AST ALT 89 H Alkaline Phosphatase Lactate Dehydrogenase C-Reactive Protein Total Protein 6.0 L Albumin 2.3 L Arterial Blood Glucose Arterial Blood Ionized Calcium Ur Specific [place] Vancomycin Trough Coronavirus (PCR) 11/30/20 11/30/20 11/30/20 03:57 05:22 12:05 WBC RBC Hgb Hct Lymph % (Auto) [place] % (Auto) Lymph # (Auto) [place] # (Auto) Baso # (Auto) Seg Neutrophils % Seg Neuts % (Manual) Lymphocytes % (Manual) Seg Neutrophils # Seg Neutrophils # Man Lymphocytes # (Manual) D-Dimer ABG pH POC ABG pCO2 60.8 H POC ABG pO2 51.1 L ABG Hemoglobin ABG Oxyhemoglobin 84.6 L ABG Sodium ABG Potassium ABG Chloride ABG Glucose 315 H Sodium Chloride Carbon Dioxide BUN Creatinine Glucose POC Glucose 295 H 413 H Hemoglobin A1c Lactic Acid Calcium Ferritin Total Bilirubin AST ALT Alkaline Phosphatase Lactate Dehydrogenase C-Reactive Protein Total Protein Albumin Arterial Blood Glucose 315 H Arterial Blood Ionized Calcium 4.5 L Ur Specific [place] Vancomycin Trough Coronavirus (PCR) 11/30/20 11/30/20 12/01/20 17:24 23:25 02:14 WBC RBC Hgb Hct Lymph % (Auto) [place] % (Auto) Lymph # (Auto) [place] # (Auto) Baso # (Auto) Seg Neutrophils % Seg Neuts % (Manual) Lymphocytes % (Manual) Seg Neutrophils # Seg Neutrophils # Man Lymphocytes # (Manual) D-Dimer ABG pH 7.278 L POC ABG pCO2 78.1 H POC ABG pO2 79.5 L ABG Hemoglobin 11.6 L ABG Oxyhemoglobin ABG Sodium 134.5 L ABG Potassium 4.6 H ABG Chloride ABG Glucose 286 H Sodium Chloride Carbon Dioxide BUN Creatinine Glucose POC Glucose 305 H 302 H Hemoglobin A1c Lactic Acid Calcium Ferritin Total Bilirubin AST ALT Alkaline Phosphatase Lactate Dehydrogenase C-Reactive Protein Total Protein Albumin Arterial Blood Glucose 286 H Arterial Blood Ionized Calcium Ur Specific [place] Vancomycin Trough Coronavirus (PCR) 12/01/20 12/01/20 12/01/20 03:35 03:35 05:22 WBC 13.4 H RBC 3.54 L Hgb 10.4 L Hct 31.8 L Lymph % (Auto) [place] % (Auto) Lymph # (Auto) [place] # (Auto) Baso # (Auto) Seg Neutrophils % Seg Neuts % (Manual) 95.0 H Lymphocytes % (Manual) 3.0 L Seg Neutrophils # Seg Neutrophils # Man 12.7 H Lymphocytes # (Manual) 0.4 L D-Dimer ABG pH POC ABG pCO2 POC ABG pO2 ABG Hemoglobin ABG Oxyhemoglobin ABG Sodium ABG Potassium ABG Chloride ABG Glucose Sodium Chloride Carbon Dioxide 35 H BUN 34 H Creatinine 0.5 L Glucose 279 H POC Glucose 259 H Hemoglobin A1c Lactic Acid Calcium 7.6 L Ferritin Total Bilirubin AST ALT 63 H Alkaline Phosphatase Lactate Dehydrogenase C-Reactive Protein Total Protein 4.8 L Albumin 2.1 L Arterial Blood Glucose Arterial Blood Ionized Calcium Ur Specific [place] Vancomycin Trough Coronavirus (PCR) 12/01/20 12/01/20 12/01/20 12:05 17:40 23:46 WBC RBC Hgb Hct Lymph % (Auto) [place] % (Auto) Lymph # (Auto) [place] # (Auto) Baso # (Auto) Seg Neutrophils % Seg Neuts % (Manual) Lymphocytes % (Manual) Seg Neutrophils # Seg Neutrophils # Man Lymphocytes # (Manual) D-Dimer ABG pH POC ABG pCO2 POC ABG pO2 ABG Hemoglobin ABG Oxyhemoglobin ABG Sodium ABG Potassium ABG Chloride ABG Glucose Sodium Chloride Carbon Dioxide BUN Creatinine Glucose POC Glucose 197 H 244 H 284 H Hemoglobin A1c Lactic Acid Calcium Ferritin Total Bilirubin AST ALT Alkaline Phosphatase Lactate Dehydrogenase C-Reactive Protein Total Protein Albumin Arterial Blood Glucose Arterial Blood Ionized Calcium Ur Specific [place] Vancomycin Trough Coronavirus (PCR) 12/02/20 12/02/20 12/02/20 02:14 03:03 04:11 WBC 16.5 H RBC 3.55 L Hgb 10.5 L Hct 31.9 L Lymph % (Auto) [place] % (Auto) Lymph # (Auto) [place] # (Auto) Baso # (Auto) Seg Neutrophils % Seg Neuts % (Manual) 90.0 H Lymphocytes % (Manual) 3.0 L Seg Neutrophils # Seg Neutrophils # Man 14.9 H Lymphocytes # (Manual) 0.5 L D-Dimer ABG pH POC ABG pCO2 74.8 H POC ABG pO2 58.9 L ABG Hemoglobin 11.5 L ABG Oxyhemoglobin ABG Sodium ABG Potassium ABG Chloride ABG Glucose 264 H Sodium Chloride Carbon Dioxide 37 H BUN 30 H Creatinine 0.4 L Glucose 245 H POC Glucose Hemoglobin A1c Lactic Acid Calcium 7.5 L Ferritin Total Bilirubin AST ALT Alkaline Phosphatase Lactate Dehydrogenase C-Reactive Protein Total Protein 5.2 L Albumin 2.2 L Arterial Blood Glucose 264 H Arterial Blood Ionized Calcium 4.5 L Ur Specific [place] Vancomycin Trough Coronavirus (PCR) 12/02/20 05:19 WBC RBC Hgb Hct Lymph % (Auto) [place] % (Auto) Lymph # (Auto) [place] # (Auto) Baso # (Auto) Seg Neutrophils % Seg Neuts % (Manual) Lymphocytes % (Manual) Seg Neutrophils # Seg Neutrophils # Man Lymphocytes # (Manual) D-Dimer ABG pH POC ABG pCO2 POC ABG pO2 ABG Hemoglobin ABG Oxyhemoglobin ABG Sodium ABG Potassium ABG Chloride ABG Glucose Sodium Chloride Carbon Dioxide BUN Creatinine Glucose POC Glucose 238 H Hemoglobin A1c Lactic Acid Calcium Ferritin Total Bilirubin AST ALT Alkaline Phosphatase Lactate Dehydrogenase C-Reactive Protein Total Protein Albumin Arterial Blood Glucose Arterial Blood Ionized Calcium Ur Specific [place] Vancomycin Trough Coronavirus (PCR)
--- NOTE | 2020-12-02 12:07 | Event Note ---
Date: 12/02/20 Spoke with biological brother today Kehinde Lackey [phone] who lives in [place] and does work outside in wooded areas and sometimes does not have a signal. He is the legal next of kin who can make decisions. The contact that he gave is a half brother who we can reach out to if we are not able to reach Kehinde. Explained the current clinical state and severity of illness. Kehinde had no questions for me and states that they have hope. Will continue to update periodically.
--- NOTE | 2020-12-02 12:42 | Progress Note ---
Assessment and Plan 59-year-old male with 1. COVID PNA 2. VDRF 3. sepsis 4. Bilateral pneumothorax s/p bilateral chest tube placement CXR 12/02/2020: Satisfactory positioning of chest tubes. Tiny apical PTX b/l - unchanged. Stable subcutaneous emphysema VENT: FIO2 85%, PEEP 18, TV: 350 RR: 30 Patient's condition unchanged. No active bleeding from chest tube insertion sites or chest tube. Dark sanguinous drainage from right chest tube likely old venous blood secondary to skin bleeding which has been controlled. Plan: 1. Vent management per ICU team 2. Continue b/l chest tubes to -[id number] suction 3. daily CXR 4. Lovenox on hold 5. No indication to place additional chest tubes. If chest tube becomes clogged or PTX worsening on CXR, then may consider placement of another tube. Discussed with Dr. German. Guarded prognosis. Thank you for this consultation. Please call with any questions or concerns. Evaluation and treatment of this patient was during the time of the national and state emergency arising from COVID19 coronavirus pandemic. Treatment and procedures performed meet the current and available best practice and guidelines for patient during the COVID pandemic. Subjective Date of service: 12/02/20 Narrative: Patient seen and examined. Remains on mechanical ventilation. Overnight, bloody drainage noted from right chest tube. Hemoglobin and chest x-ray this a.m. stable. Patient maintaining O2 saturation of 97% Objective Vital Signs - 12hr 12/02/20 12/02/20 12/02/20 00:45 01:00 01:15 Temperature Pulse Rate 78 78 78 Pulse Rate [ From Monitor] Respiratory 22 27 H 30 H Rate Blood Pressure 94/50 98/49 97/55 O2 Sat by Pulse 97 96 96 Oximetry 12/02/20 12/02/20 12/02/20 01:30 01:45 02:00 Temperature Pulse Rate 79 88 80 Pulse Rate [ From Monitor] Respiratory 21 25 H 24 Rate Blood Pressure 98/51 98/51 135/71 O2 Sat by Pulse 95 94 95 Oximetry 12/02/20 12/02/20 12/02/20 02:15 02:30 02:45 Temperature Pulse Rate 78 78 80 Pulse Rate [ From Monitor] Respiratory 27 H 25 H 26 H Rate Blood Pressure 127/73 136/73 129/64 O2 Sat by Pulse 94 93 95 Oximetry 12/02/20 12/02/20 12/02/20 03:00 03:15 03:26 Temperature 99.7 F H Pulse Rate 82 83 Pulse Rate [ From Monitor] Respiratory 24 21 Rate Blood Pressure 129/66 122/60 O2 Sat by Pulse 96 94 Oximetry 12/02/20 12/02/20 12/02/20 03:30 03:45 04:00 Temperature Pulse Rate 80 80 82 Pulse Rate [ 77 From Monitor] Respiratory 24 16 26 H Rate Blood Pressure 117/60 105/59 105/59 O2 Sat by Pulse 94 95 94 Oximetry 12/02/20 12/02/20 12/02/20 04:11 04:15 04:30 Temperature Pulse Rate 80 79 78 Pulse Rate [ From Monitor] Respiratory 16 18 Rate Blood Pressure 114/61 108/58 107/60 O2 Sat by Pulse 94 93 97 Oximetry 12/02/20 12/02/20 12/02/20 04:45 05:00 05:15 Temperature Pulse Rate 80 82 81 Pulse Rate [ From Monitor] Respiratory 20 17 13 Rate Blood Pressure 112/60 107/60 108/57 O2 Sat by Pulse 98 98 97 Oximetry 12/02/20 12/02/20 12/02/20 05:30 05:45 06:00 Temperature Pulse Rate 76 72 85 Pulse Rate [ From Monitor] Respiratory 16 19 23 Rate Blood Pressure 116/64 140/74 140/74 O2 Sat by Pulse 96 99 98 Oximetry 12/02/20 12/02/20 12/02/20 06:15 06:30 06:45 Temperature Pulse Rate 108 H 87 79 Pulse Rate [ From Monitor] Respiratory 18 18 17 Rate Blood Pressure 165/94 123/61 123/63 O2 Sat by Pulse 93 95 94 Oximetry 12/02/20 12/02/20 12/02/20 07:00 07:15 07:30 Temperature 98.2 F Pulse Rate 79 78 77 Pulse Rate [ From Monitor] Respiratory 15 23 23 Rate Blood Pressure 107/59 108/59 107/57 O2 Sat by Pulse 95 95 96 Oximetry 12/02/20 12/02/20 12/02/20 07:45 08:00 08:15 Temperature Pulse Rate 77 75 78 Pulse Rate [ 78 From Monitor] Respiratory 27 H 16 23 Rate Blood Pressure 105/56 113/53 113/53 O2 Sat by Pulse 96 95 Oximetry 12/02/20 12/02/2021 08:20 08:30 08:45 Temperature Pulse Rate 78 72 74 Pulse Rate [ From Monitor] Respiratory 16 20 Rate Blood Pressure 113/53 123/65 109/62 O2 Sat by Pulse 97 97 97 Oximetry 12/02/20 12/02/20 12/02/20 09:00 09:15 09:30 Temperature Pulse Rate 73 74 78 Pulse Rate [ From Monitor] Respiratory 23 26 H 20 Rate Blood Pressure 104/58 102/56 105/57 O2 Sat by Pulse 97 97 98 Oximetry 12/02/20 12/02/20 12/02/20 09:45 10:00 10:15 Temperature Pulse Rate 79 77 75 Pulse Rate [ From Monitor] Respiratory 20 27 H 18 Rate Blood Pressure 105/61 106/55 103/56 O2 Sat by Pulse 99 98 97 Oximetry 12/02/20 12/02/20 12/02/20 10:30 10:45 11:00 Temperature Pulse Rate 74 75 78 Pulse Rate [ From Monitor] Respiratory 16 21 24 Rate Blood Pressure 101/56 104/58 107/58 O2 Sat by Pulse 97 96 96 Oximetry 12/02/20 12/02/20 12/02/20 11:15 11:30 11:45 Temperature Pulse Rate 72 75 79 Pulse Rate [ From Monitor] Respiratory 19 23 22 Rate Blood Pressure 108/56 115/60 103/59 O2 Sat by Pulse 96 97 97 Oximetry 12/02/20 12:00 Temperature 97.9 F Pulse Rate 78 Pulse Rate [ 72 From Monitor] Respiratory 19 Rate Blood Pressure 107/60 O2 Sat by Pulse 96 Oximetry - General physical appearance Narrative Exam: Gen.: Intubated, sedated. ENT: ET tube and OG tube in place. Trachea midline. Subcutaneous emphysema of b/l neck and anterior chest -unchanged since yesterday's exam. CV: S1, S2 present Respiratory: Bilateral chest tubes patent. Right chest tube with dark sanguinous drainage in tubing, without clots. No leak. Right chest wall dressing is clean, dry, intact. Left sided dressing with moderate serosang drainage, unchanged - no active bleeding from skin. Serous drainage in tubing and no air leak. Extremities: Generalized edema - Labs 12/02/20 02:14 12/02/20 04:11 Diabetes panel 12/02/20 Range/Units 04:11 Sodium 142 (137-145) mmol/L Potassium 4.6 (3.6-5.0) mmol/L Chloride 101.6 (98-107) mmol/L Carbon Dioxide 37 H (22-30) mmol/L BUN 30 H (9-20) mg/dL Creatinine 0.4 L (0.8-1.3) mg/dL Glucose 245 H (75-100) mg/dL Calcium 7.5 L (8.4-10.2) mg/dL AST 24 (5-40) units/L ALT 53 (7-56) units/L Alkaline Phosphatase 102 (35-129) units/L Total Protein 5.2 L (6.3-8.2) g/dL Albumin 2.2 L (3.9-5) g/dL Calcium panel 12/02/20 Range/Units 04:11 Calcium 7.5 L (8.4-10.2) mg/dL Albumin 2.2 L (3.9-5) g/dL Pituitary panel 12/02/20 Range/Units 04:11 Sodium 142 (137-145) mmol/L Potassium 4.6 (3.6-5.0) mmol/L Chloride 101.6 (98-107) mmol/L Carbon Dioxide 37 H (22-30) mmol/L BUN 30 H (9-20) mg/dL Creatinine 0.4 L (0.8-1.3) mg/dL Glucose 245 H (75-100) mg/dL Calcium 7.5 L (8.4-10.2) mg/dL Adrenal panel 12/02/20 Range/Units 04:11 Sodium 142 (137-145) mmol/L Potassium 4.6 (3.6-5.0) mmol/L Chloride 101.6 (98-107) mmol/L Carbon Dioxide 37 H (22-30) mmol/L BUN 30 H (9-20) mg/dL Creatinine 0.4 L (0.8-1.3) mg/dL Glucose 245 H (75-100) mg/dL Calcium 7.5 L (8.4-10.2) mg/dL Total Bilirubin 0.30 (0.1-1.2) mg/dL AST 24 (5-40) units/L ALT 53 (7-56) units/L Alkaline Phosphatase 102 (35-129) units/L Total Protein 5.2 L (6.3-8.2) g/dL Albumin 2.2 L (3.9-5) g/dL
--- NOTE | 2020-12-02 17:12 | Progress Note ---
Assessment and Plan Cultures: SARS CoV-2 PCR: positive Blood culture: No growth 11/21/2020 tracheal aspirate culture: MRSA A/P: 59-year-old male: #Bilateral pneumonia: secondary to COVID-19. Admission labs showed leukocytosis, D-dimer greater than 10,000, ferritin 672, CRP 19.8, LDH 663, creatinine 0.6, procalcitonin 0.51. Completed 5 days of abx, remdesivir. #MRSA on ET aspirate culture, ?colonization v/s true disease, difficult to differentiate. #Right-sided pneumothorax and pneumomediastinum: Underwent placement of right- sided chest tube, likely secondary to COVID-19. #Acute hypoxic respiratory failure: Failed BiPAP. Remains on the vent. #Elevated d-dimer: DVT scan negative. Unable to get CTA Chest due to patients unstable clinical status #Transaminitis: secondary to COVID-19. Recs: -MRSA on ET aspirate culture, ?colonization v/s true disease, difficult to differentiate, remains critically ill,IV Vancomycin x 7 days. Stop date 12/03/2020 -continue steroids per ICU team -Continue prophylactic anticoagulation based on d-dimer per hospital protocol -trend ferritin, LDH, d-dimer, CRP every 2-3 days for risk stratification and to assess disease progression -guarded prognosis -Remains on high-dose methylprednisolone, continue to monitor white count. Because of again tomorrow we will reculture. Remains afebrile. Rm Carrillo MD [facility] O: [phone] F: [phone] Subjective Date of service: 12/02/20 Principal diagnosis: COVID-19 Interval history: Afebrile, white count elevated at 16.5 which is worse than yesterday. Sputum cultures with MRSA. Remains mechanically ventilated. Imaging personally reviewed: Chest x-ray: Stable pneumomediastinum and bilateral small pneumothoraces. Bilateral parenchymal disease unchanged. Objective - Exam Narrative Exam: Physical exam deferred due to PPE conservation strategy. Please refer to primary team's note. - Constitutional Vitals: Vital Signs Temp Pulse Resp BP Pulse Ox 98.8 F 113 H 21 184/99 91 12/02/20 16:00 12/02/20 16:30 12/02/20 16:30 12/02/20 16:30 12/02/20 16:30 Temperature -Last 24 Hours Temperature 98.8 F Temperature 97.9 F Temperature 98.2 F Temperature 99.7 F Temperature 99.6 F Temperature 99.3 F Temperature 99.3 F - Labs CBC & Chem 7: 12/02/20 02:14 12/02/20 04:11 Labs: Abnormal lab results 12/01/20 12/01/20 12/02/20 Range/Units 17:40 23:46 02:14 WBC 16.5 H (4.5-11.0) K/mm3 RBC 3.55 L (3.65-5.03) M/mm3 Hgb 10.5 L (11.8-15.2) gm/dl Hct 31.9 L (35.5-45.6) % Seg Neuts % (Manual) 90.0 H (40.0-70.0) % Lymphocytes % (Manual) 3.0 L (13.4-35.0) % Seg Neutrophils # Man 14.9 H (1.8-7.7) K/mm3 Lymphocytes # (Manual) 0.5 L (1.2-5.4) K/mm3 POC ABG pCO2 (32.0-48.0) mmHg POC ABG pO2 (83-108) mmHg ABG Hemoglobin (12.0-17.5) ABG Glucose (65-95) mg/dL Carbon Dioxide (22-30) mmol/L BUN (9-20) mg/dL Creatinine (0.8-1.3) mg/dL Glucose (75-100) mg/dL POC Glucose 244 H 284 H (70-105) mg/dL Calcium (8.4-10.2) mg/dL Total Protein (6.3-8.2) g/dL Albumin (3.9-5) g/dL Arterial Blood Glucose (65-95) mg/dL Arterial Blood Ionized Calcium (4.6-5.3) mg/dL 12/02/20 12/02/20 12/02/20 Range/Units 03:03 04:11 05:19 WBC (4.5-11.0) K/mm3 RBC (3.65-5.03) M/mm3 Hgb (11.8-15.2) gm/dl Hct (35.5-45.6) % Seg Neuts % (Manual) (40.0-70.0) % Lymphocytes % (Manual) (13.4-35.0) % Seg Neutrophils # Man (1.8-7.7) K/mm3 Lymphocytes # (Manual) (1.2-5.4) K/mm3 POC ABG pCO2 74.8 H (32.0-48.0) mmHg POC ABG pO2 58.9 L (83-108) mmHg ABG Hemoglobin 11.5 L (12.0-17.5) ABG Glucose 264 H (65-95) mg/dL Carbon Dioxide 37 H (22-30) mmol/L BUN 30 H (9-20) mg/dL Creatinine 0.4 L (0.8-1.3) mg/dL Glucose 245 H (75-100) mg/dL POC Glucose 238 H (70-105) mg/dL Calcium 7.5 L (8.4-10.2) mg/dL Total Protein 5.2 L (6.3-8.2) g/dL Albumin 2.2 L (3.9-5) g/dL Arterial Blood Glucose 264 H (65-95) mg/dL Arterial Blood Ionized Calcium 4.5 L (4.6-5.3) mg/dL 12/02/20 Range/Units 11:46 WBC (4.5-11.0) K/mm3 RBC (3.65-5.03) M/mm3 Hgb (11.8-15.2) gm/dl Hct (35.5-45.6) % Seg Neuts % (Manual) (40.0-70.0) % Lymphocytes % (Manual) (13.4-35.0) % Seg Neutrophils # Man (1.8-7.7) K/mm3 Lymphocytes # (Manual) (1.2-5.4) K/mm3 POC ABG pCO2 (32.0-48.0) mmHg POC ABG pO2 (83-108) mmHg ABG Hemoglobin (12.0-17.5) ABG Glucose (65-95) mg/dL Carbon Dioxide (22-30) mmol/L BUN (9-20) mg/dL Creatinine (0.8-1.3) mg/dL Glucose (75-100) mg/dL POC Glucose 236 H (70-105) mg/dL Calcium (8.4-10.2) mg/dL Total Protein (6.3-8.2) g/dL Albumin (3.9-5) g/dL Arterial Blood Glucose (65-95) mg/dL Arterial Blood Ionized Calcium (4.6-5.3) mg/dL
[2020-12-03] MEDS: methylPREDNISolone Sod Succinate 125 MG/2 ML INJ IV SCH ×2 (00:06→05:00)
[2020-12-03] MEDS: fentaNYL DRIP Premix 2,000 MCG/100 ML BAG IV SCH ×4 (00:17→20:14)
[2020-12-03] MEDS: MIDAZOLAM 100 MG in SODIUM CHLORIDE 0.9% 80 ML IV SCH ×2 (00:26→21:04)
[2020-12-03] MEDS: INSULIN LISPRO 100 UNIT/ML SUB-Q SCH ×4 (00:33→18:24)
[2020-12-03] MEDS: VANCOMYCIN 1,500 MG in SODIUM CHLORIDE 0.9% 500 ML 500 ML IV SCH (04:45)
[2020-12-03 05:15] LABS: Hematocrit 42.3 % (35.5-45.6); Mean Corpuscular HGB Conc 33 % (32-34); Mean Corpuscular Volume 91 fl (84-94); Platelet Count 112 K/mm3 (140-440); Red Blood Count 4.64 M/mm3 (3.65-5.03); Red Cell Distribution Width 13.8 % (13.2-15.2)
[2020-12-03 06:10] LABS: Total Cells Counted 100
[2020-12-03 06:11] LABS: Platelet Estimate Consistent w Auto; Stomatocytes 1+
[2020-12-03 06:20] LABS: Alanine Aminotransferase 63 units/L (7-56); Albumin 2.4 g/dL (3.9-5); Blood Urea Nitrogen 25 mg/dL (9-20); Calcium 7.7 mg/dL (8.4-10.2); Hemolysis Index 6
[2020-12-03 06:24] LABS: BUN/Creatinine Ratio 83
[2020-12-03] MEDS: INSULIN GLARGINE 100 UNITS/ML SUB-Q SCH ×2 (07:50→22:46)
[2020-12-03] MEDS: FAMOTIDINE 20 MG/2 ML INJ IV SCH ×2 (09:15→21:07)
--- NOTE | 2020-12-03 10:58 | Progress Note ---
Assessment and Plan 59 y/o male with acute respiratory failure, abnormal CXR and abnormal lab studies. : Dropped steroids down to 40q8 and will start to wean from there. Continue to slowly wean FiO2 first, keep PEEP at current level. Spoke with Iftikhar muller, please see my event note, who is the biological brother. He had no questions but thanked us for our care. Prognosis remains very very guarded. PaO2 of 55 and pH of >7.2 and sats of >88% are all acceptable. 12/02/20: Wean FiO2 for sats >88% and PaO2 >55. Unable to prone currently secondary to bilateral chest tubes. COntinue high dose steroids. CM To figure out who is the immediate next of kin that can make decisions and then we will discuss the current clinical situation with them. 12/01/20: Continue PEEP and FiO2 elevated to keep sats >88% and PaO2 >55. Small lung volumes and high PEEP. very very guarded prognosis. 11/30/20: Worsening hypoxemia. Chest tubes stable. Likely just worsening disease. Unable to prone now. Increase PEEP to 18 and FiO2 back up to 100. Continue 3 sedatives for RASS of -2. Obtain 12 lead to look at T waves as K was only 4.6 on yesterday. Guarded, guarded prognosis 11/29/20: Second chest tube in on yesterday. CXR is stable. ABG unchanged. Will likely increase PEEP now that chest tubes are in. No further paralytics. Still making good urine. Prognosis remains guarded. Will check chemistry to assess Potassium levels given peaked t's seen on monitor. 11/28/20: Second chest tube today. Once chest tube in, will likely increase PEEP to 18 and repeat gas about 2 hours after this. Continue paralytic today. No proning now that patient will have bilateral chest tubes. VEry guarded prognosis. 11/27/20: Spoke with surgery who have agreed to evaluate and placed chest tube on either right or left side pending CXR reading. Will monitor for 36-48 hours and if no resolution, will need chest tube placed on opposite side as well. Once placed, will likely paralyze again but hold on proning for now. Guarded prognosis. 11/26/20: Paralytics are off. Continue current level of sedation. Will prone for 12 hours today and repeat ABG in the am. Continue lung protective strategy. Guarded prognosis. 11/25/20: Prone again to 16 hours, will prone at 12-12:30. Continue paralytics for 24 more hours. Discussed the idea of permissive hypercapnea again today and as long as pH is above 7.2 no changes should be made to TV and or RR without discussing with physician. Continue to monitor urine output, guarded prognosis. Hold on lasix therapy today. 11/24/20: Prone again today. Will try 48 hours of paralyzing the patient to see if this will help with oxygenation. Will speak with RT's about permissive hypercapnea and that pH's of 7.2 and greater are ok. Continue high doses steroids. Prognosis is still very very guarded. If not improvement with paralytics, will attempt transfer. 11/23/20: Prone again today for 12 hours. Continue High Dose steroids. Hold on lasix given marginal BP's. Prognosis is very very guarded to poor. Will continue all supportive measures. If not able to wean from 100%, will attempt transfer for ECMO. 11/20/20: WIll change to solumedrol 60q6 today. Hold on lasix today. Given his increasing oxygen requirement, will likely end up intubated. OVerall prognosis is very poor. 11/19/20: lasix 40mg IV x1 today. Will speak with ID but may consider increasing steroids to see if this will help with oxygenation. Continue Remdesivir. Prognosis remains guarded. 11/18/20: Continue bipap, goal is to attempt to prevent prolong intubation for as long as possible. Lasix again today. Steroids and Remdesivir. Guarded Prognosis. 11/17/20: Continue bipap therapy. Monitor mental state. High risk for Intubation. Continue BID anticoagulation. Prone if able. BNP was elevated but not grossly elevated. Will still give lasix with hopes of achieving net negative state. STeroids and remdesivir. Overall prognosis is guarded, extremely guarded. 1. Pulm- Agree with concern for covid. Agree with empiric abx but procal is only mildly elevated. Await cultures. Continue bipap therapy for now but will need to monitor closely. [facility] has ordered CTA, but I spoke with pharmacy and we will empirically treat with BID lovenox therapy. COntinue empiric steroid thera py for COVID until studies back. Not sure that he will be able to prone on bipap therapy. Monitor volume status and run as dry as possible. 2. Renal-normal function but all electrolytes abnormal. HYponatremia and Hypochloremia volume up vs volume down. Sent BNP. Would suggest obtaning echo as well. Not sure what to make of elevated lactate unless that is from increased work of breathing or damage to other tissue unknown. May need to check LFT's and Coags as well. 3. Guarded Prognosis. CCT 31 minutes. Subjective Date of service: 12/03/20 Principal diagnosis: COVID-19 Interval history: No acute events. Down to 80%. Chest tubes are stable. Objective Vital Signs - 12hr 12/02/20 12/02/20 12/02/20 23:00 23:15 23:23 Temperature Pulse Rate 89 86 93 H Pulse Rate [ From Monitor] Respiratory 16 29 H 17 Rate Blood Pressure 106/61 108/60 108/60 O2 Sat by Pulse 98 97 97 Oximetry 12/02/20 12/02/20 12/02/20 23:27 23:30 23:45 Temperature Pulse Rate 95 H 95 H 91 H Pulse Rate [ From Monitor] Respiratory 12 12 Rate Blood Pressure 108/62 117/62 111/62 O2 Sat by Pulse 97 97 96 Oximetry 12/02/20 12/03/20 12/03/20 23:50 00:00 00:15 Temperature 98.5 F Pulse Rate 90 78 Pulse Rate [ 77 From Monitor] Respiratory 14 30 H Rate Blood Pressure 103/61 115/60 O2 Sat by Pulse 95 99 Oximetry 12/03/20 12/03/20 12/03/20 00:30 00:45 01:00 Temperature Pulse Rate 85 93 H 91 H Pulse Rate [ From Monitor] Respiratory 30 H 30 H 30 H Rate Blood Pressure 112/61 111/64 108/60 O2 Sat by Pulse 100 100 99 Oximetry 12/03/20 12/03/20 12/03/20 01:15 01:30 01:45 Temperature Pulse Rate 88 89 86 Pulse Rate [ From Monitor] Respiratory 30 H 30 H 28 H Rate Blood Pressure 114/64 108/60 112/63 O2 Sat by Pulse 99 99 98 Oximetry 12/03/20 12/03/20 12/03/20 02:00 02:15 02:30 Temperature Pulse Rate 90 87 92 H Pulse Rate [ From Monitor] Respiratory 28 H 30 H 29 H Rate Blood Pressure 115/65 115/66 122/63 O2 Sat by Pulse 98 97 97 Oximetry 12/03/20 12/03/20 12/03/20 02:45 03:00 03:15 Temperature Pulse Rate 91 H 90 89 Pulse Rate [ From Monitor] Respiratory 30 H 31 H 28 H Rate Blood Pressure 119/64 122/67 114/64 O2 Sat by Pulse 97 97 97 Oximetry 12/03/20 12/03/20 12/03/20 03:30 03:44 03:45 Temperature 98.5 F Pulse Rate 91 H 93 H Pulse Rate [ From Monitor] Respiratory 28 H 30 H Rate Blood Pressure 121/64 115/63 O2 Sat by Pulse 98 98 Oximetry 12/03/20 12/03/20 12/03/20 03:49 04:00 04:15 Temperature Pulse Rate 95 H 96 H 90 Pulse Rate [ 77 From Monitor] Respiratory 29 H 30 H Rate Blood Pressure 114/64 114/62 O2 Sat by Pulse 98 98 Oximetry 12/03/20 12/03/20 12/03/20 04:30 04:45 04:49 Temperature Pulse Rate 92 H 87 82 Pulse Rate [ From Monitor] Respiratory 28 H 20 Rate Blood Pressure 104/61 117/72 112/72 O2 Sat by Pulse 98 99 99 Oximetry 12/03/20 12/03/20 12/03/20 05:01 05:15 05:30 Temperature Pulse Rate 87 90 89 Pulse Rate [ From Monitor] Respiratory 30 H 30 H 30 H Rate Blood Pressure 132/73 128/71 123/67 O2 Sat by Pulse 100 100 100 Oximetry 12/03/20 12/03/20 12/03/20 05:45 06:00 06:15 Temperature Pulse Rate 87 91 H 89 Pulse Rate [ From Monitor] Respiratory 30 H 30 H 30 H Rate Blood Pressure 114/64 113/64 114/63 O2 Sat by Pulse 99 99 98 Oximetry 12/03/20 12/03/20 12/03/20 06:30 06:45 07:00 Temperature 98.2 F Pulse Rate 86 87 85 Pulse Rate [ From Monitor] Respiratory 26 H 23 20 Rate Blood Pressure 114/63 114/63 114/62 O2 Sat by Pulse 98 98 97 Oximetry 12/03/20 12/03/20 12/03/20 07:15 07:30 07:45 Temperature Pulse Rate 87 83 90 Pulse Rate [ From Monitor] Respiratory 23 30 H 30 H Rate Blood Pressure 115/63 115/67 113/64 O2 Sat by Pulse 97 97 98 Oximetry 12/03/20 12/03/20 12/03/20 07:51 07:56 08:00 Temperature Pulse Rate 83 90 Pulse Rate [ 87 From Monitor] Respiratory 18 Rate Blood Pressure 115/67 O2 Sat by Pulse 97 98 Oximetry 12/03/20 12/03/20 12/03/20 08:01 08:15 08:30 Temperature Pulse Rate 84 85 87 Pulse Rate [ From Monitor] Respiratory 24 23 15 Rate Blood Pressure 135/76 146/78 151/83 O2 Sat by Pulse 98 98 98 Oximetry 12/03/20 12/03/20 12/03/20 08:45 09:00 09:15 Temperature Pulse Rate 89 89 88 Pulse Rate [ From Monitor] Respiratory 25 H 21 13 Rate Blood Pressure 149/81 157/82 162/88 O2 Sat by Pulse 98 98 97 Oximetry 12/03/20 09:30 Temperature Pulse Rate 89 Pulse Rate [ From Monitor] Respiratory 12 Rate Blood Pressure 158/81 O2 Sat by Pulse 98 Oximetry Constitutional: alert ENT: other (Now intubated) Ascultation: Bilateral: rales, rhonchi Percussion: Bilateral: not dull Cardiovascular: regular rate and rhythm Gastrointestinal: soft, non-tender CBC and BMP: 12/03/20 04:35 12/03/20 04:35 ABG, PT/INR, D-dimer: ABG ABG pH 7.299 (7.320-7.450) L 12/03/20 03:21 POC ABG pCO2 82.1 mmHg (32.0-48.0) H 12/03/20 03:21 POC ABG pO2 62.4 mmHg (83-108) L 12/03/20 03:21 POC ABG HCO3 39.4 12/03/20 03:21 PT/INR, D-dimer D-Dimer 926.11 ng/mlDDU (0-234) H 11/26/20 06:04 Abnormal lab findings: Abnormal Labs 11/15/20 11/15/20 11/15/20 10:39 10:39 10:39 WBC 14.3 H RBC 5.17 H Hgb Hct Plt Count Lymph % (Auto) 7.8 L Mobile % (Auto) 7.6 H Lymph # (Auto) 1.1 L Mobile # (Auto) 1.1 H Baso # (Auto) Seg Neutrophils % 83.3 H Seg Neuts % (Manual) Lymphocytes % (Manual) Seg Neutrophils # 11.9 H Seg Neutrophils # Man Lymphocytes # (Manual) D-Dimer ABG pH POC ABG pCO2 POC ABG pO2 ABG Hemoglobin ABG Oxyhemoglobin ABG Sodium ABG Potassium ABG Chloride ABG Glucose Sodium 128 L Chloride 96.0 L Carbon Dioxide BUN Creatinine 0.7 L Glucose 238 H POC Glucose Hemoglobin A1c Lactic Acid 4.10 H* Calcium 7.0 L Ferritin Total Bilirubin 1.40 H AST 49 H ALT 70 H Alkaline Phosphatase Lactate Dehydrogenase 663 H C-Reactive Protein 19.80 H Total Protein Albumin 2.9 L Arterial Blood Glucose Arterial Blood Ionized Calcium Ur Specific Capron Vancomycin Trough Coronavirus (PCR) 11/15/20 11/15/20 11/15/20 10:39 10:39 11:20 WBC RBC Hgb Hct Plt Count Lymph % (Auto) Mobile % (Auto) Lymph # (Auto) Mobile # (Auto) Baso # (Auto) Seg Neutrophils % Seg Neuts % (Manual) Lymphocytes % (Manual) Seg Neutrophils # Seg Neutrophils # Man Lymphocytes # (Manual) D-Dimer > 03453 H ABG pH POC ABG pCO2 29.9 L POC ABG pO2 137.3 H ABG Hemoglobin ABG Oxyhemoglobin ABG Sodium 126.5 L ABG Potassium ABG Chloride ABG Glucose 248 H Sodium Chloride Carbon Dioxide BUN Creatinine Glucose POC Glucose Hemoglobin A1c Lactic Acid Calcium Ferritin 672.8 H Total Bilirubin AST ALT Alkaline Phosphatase Lactate Dehydrogenase C-Reactive Protein Total Protein Albumin Arterial Blood Glucose 248 H Arterial Blood Ionized Calcium 4.1 L Ur Specific Capron Vancomycin Trough Coronavirus (PCR) 11/15/20 11/15/20 11/16/20 13:41 23:41 01:45 WBC RBC Hgb Hct Plt Count Lymph % (Auto) Mobile % (Auto) Lymph # (Auto) Mobile # (Auto) Baso # (Auto) Seg Neutrophils % Seg Neuts % (Manual) Lymphocytes % (Manual) Seg Neutrophils # Seg Neutrophils # Man Lymphocytes # (Manual) D-Dimer ABG pH POC ABG pCO2 POC ABG pO2 ABG Hemoglobin ABG Oxyhemoglobin ABG Sodium ABG Potassium ABG Chloride ABG Glucose Sodium Chloride Carbon Dioxide BUN Creatinine Glucose POC Glucose 284 H Hemoglobin A1c Lactic Acid 2.30 H* Calcium Ferritin Total Bilirubin AST ALT Alkaline Phosphatase Lactate Dehydrogenase C-Reactive Protein Total Protein Albumin Arterial Blood Glucose Arterial Blood Ionized Calcium Ur Specific [place] 1.037 H Vancomycin Trough Coronavirus (PCR) 11/16/20 11/16/20 11/16/20 05:29 05:29 05:29 WBC 12.9 H RBC Hgb Hct Plt Count Lymph % (Auto) 4.5 L Mobile % (Auto) Lymph # (Auto) 0.6 L Mobile # (Auto) Baso # (Auto) 0.2 H Seg Neutrophils % 89.8 H Seg Neuts % (Manual) Lymphocytes % (Manual) Seg Neutrophils # 11.5 H Seg Neutrophils # Man Lymphocytes # (Manual) D-Dimer ABG pH POC ABG pCO2 POC ABG pO2 ABG Hemoglobin ABG Oxyhemoglobin ABG Sodium ABG Potassium ABG Chloride ABG Glucose Sodium 131 L Chloride Carbon Dioxide 21 L BUN 23 H Creatinine 0.6 L Glucose 342 H POC Glucose Hemoglobin A1c Lactic Acid 2.60 H* Calcium 7.0 L Ferritin Total Bilirubin AST ALT Alkaline Phosphatase Lactate Dehydrogenase C-Reactive Protein Total Protein Albumin 2.4 L Arterial Blood Glucose Arterial Blood Ionized Calcium Ur Specific [place]ron Vancomycin Trough Coronavirus (PCR) 11/16/20 11/16/20 11/16/20 05:29 08:11 12:11 WBC RBC Hgb Hct Plt Count Lymph % (Auto) Mobile % (Auto) Lymph # (Auto) Mobile # (Auto) Baso # (Auto) Seg Neutrophils % Seg Neuts % (Manual) Lymphocytes % (Manual) Seg Neutrophils # Seg Neutrophils # Man Lymphocytes # (Manual) D-Dimer ABG pH POC ABG pCO2 POC ABG pO2 ABG Hemoglobin ABG Oxyhemoglobin ABG Sodium ABG Potassium ABG Chloride ABG Glucose Sodium Chloride Carbon Dioxide BUN Creatinine Glucose POC Glucose 329 H 320 H Hemoglobin A1c 11.7 H Lactic Acid Calcium Ferritin Total Bilirubin AST ALT Alkaline Phosphatase Lactate Dehydrogenase C-Reactive Protein Total Protein Albumin Arterial Blood Glucose Arterial Blood Ionized Calcium Ur Specific Capron Vancomycin Trough Coronavirus (PCR) 11/16/20 11/16/20 11/16/20 16:13 21:29 Unknown WBC RBC Hgb Hct Plt Count Lymph % (Auto) Mobile % (Auto) Lymph # (Auto) Mobile # (Auto) Baso # (Auto) Seg Neutrophils % Seg Neuts % (Manual) Lymphocytes % (Manual) Seg Neutrophils # Seg Neutrophils # Man Lymphocytes # (Manual) D-Dimer ABG pH POC ABG pCO2 POC ABG pO2 ABG Hemoglobin ABG Oxyhemoglobin ABG Sodium ABG Potassium ABG Chloride ABG Glucose Sodium Chloride Carbon Dioxide BUN Creatinine Glucose POC Glucose 257 H 376 H Hemoglobin A1c Lactic Acid Calcium Ferritin Total Bilirubin AST ALT Alkaline Phosphatase Lactate Dehydrogenase C-Reactive Protein Total Protein Albumin Arterial Blood Glucose Arterial Blood Ionized Calcium Ur Specific Capron Vancomycin Trough Coronavirus (PCR) Positive A 11/17/20 11/17/20 11/17/20 07:42 12:07 17:25 WBC RBC Hgb Hct Plt Count Lymph % (Auto) Mobile % (Auto) Lymph # (Auto) Mobile # (Auto) Baso # (Auto) Seg Neutrophils % Seg Neuts % (Manual) Lymphocytes % (Manual) Seg Neutrophils # Seg Neutrophils # Man Lymphocytes # (Manual) D-Dimer ABG pH POC ABG pCO2 POC ABG pO2 ABG Hemoglobin ABG Oxyhemoglobin ABG Sodium ABG Potassium ABG Chloride ABG Glucose Sodium Chloride Carbon Dioxide BUN Creatinine Glucose POC Glucose 231 H 380 H 302 H Hemoglobin A1c Lactic Acid Calcium Ferritin Total Bilirubin AST ALT Alkaline Phosphatase Lactate Dehydrogenase C-Reactive Protein Total Protein Albumin Arterial Blood Glucose Arterial Blood Ionized Calcium Ur Specific Capron Vancomycin Trough Coronavirus (PCR) 11/17/20 11/18/20 11/18/20 21:53 04:25 07:45 WBC RBC Hgb Hct Plt Count Lymph % (Auto) Mobile % (Auto) Lymph # (Auto) Mobile # (Auto) Baso # (Auto) Seg Neutrophils % Seg Neuts % (Manual) Lymphocytes % (Manual) Seg Neutrophils # Seg Neutrophils # Man Lymphocytes # (Manual) D-Dimer ABG pH POC ABG pCO2 POC ABG pO2 ABG Hemoglobin ABG Oxyhemoglobin ABG Sodium ABG Potassium ABG Chloride ABG Glucose Sodium 136 L Chloride Carbon Dioxide BUN 24 H Creatinine 0.6 L Glucose 212 H POC Glucose 293 H 216 H Hemoglobin A1c Lactic Acid Calcium 7.4 L Ferritin Total Bilirubin AST 41 H ALT Alkaline Phosphatase 142 H Lactate Dehydrogenase C-Reactive Protein Total Protein Albumin 2.3 L Arterial Blood Glucose Arterial Blood Ionized Calcium Ur Specific [place]ron Vancomycin Trough Coronavirus (PCR) 11/18/20 11/18/20 11/18/20 12:28 15:58 21:37 WBC RBC Hgb Hct Plt Count Lymph % (Auto) Mobile % (Auto) Lymph # (Auto) Mobile # (Auto) Baso # (Auto) Seg Neutrophils % Seg Neuts % (Manual) Lymphocytes % (Manual) Seg Neutrophils # Seg Neutrophils # Man Lymphocytes # (Manual) D-Dimer ABG pH POC ABG pCO2 POC ABG pO2 ABG Hemoglobin ABG Oxyhemoglobin ABG Sodium ABG Potassium ABG Chloride ABG Glucose Sodium Chloride Carbon Dioxide BUN Creatinine Glucose POC Glucose 165 H 220 H 311 H Hemoglobin A1c Lactic Acid Calcium Ferritin Total Bilirubin AST ALT Alkaline Phosphatase Lactate Dehydrogenase C-Reactive Protein Total Protein Albumin Arterial Blood Glucose Arterial Blood Ionized Calcium Ur Specific [place] Vancomycin Trough Coronavirus (PCR) 11/19/20 11/19/20 11/19/20 05:35 07:40 12:39 WBC RBC Hgb Hct Plt Count Lymph % (Auto) Mobile % (Auto) Lymph # (Auto) Mobile # (Auto) Baso # (Auto) Seg Neutrophils % Seg Neuts % (Manual) Lymphocytes % (Manual) Seg Neutrophils # Seg Neutrophils # Man Lymphocytes # (Manual) D-Dimer ABG pH POC ABG pCO2 POC ABG pO2 ABG Hemoglobin ABG Oxyhemoglobin ABG Sodium ABG Potassium ABG Chloride ABG Glucose Sodium 132 L Chloride Carbon Dioxide BUN 25 H Creatinine 0.5 L Glucose 179 H POC Glucose 149 H 306 H Hemoglobin A1c Lactic Acid Calcium 7.5 L Ferritin Total Bilirubin AST ALT Alkaline Phosphatase 139 H Lactate Dehydrogenase C-Reactive Protein Total Protein Albumin 2.4 L Arterial Blood Glucose Arterial Blood Ionized Calcium Ur Specific [place] Vancomycin Trough Coronavirus (PCR) 11/19/20 11/19/20 11/20/20 16:17 21:25 08:30 WBC RBC Hgb Hct Plt Count Lymph % (Auto) Mobile % (Auto) Lymph # (Auto) Mobile # (Auto) Baso # (Auto) Seg Neutrophils % Seg Neuts % (Manual) Lymphocytes % (Manual) Seg Neutrophils # Seg Neutrophils # Man Lymphocytes # (Manual) D-Dimer ABG pH POC ABG pCO2 POC ABG pO2 ABG Hemoglobin ABG Oxyhemoglobin ABG Sodium ABG Potassium ABG Chloride ABG Glucose Sodium Chloride Carbon Dioxide BUN Creatinine Glucose POC Glucose 364 H 347 H 141 H Hemoglobin A1c Lactic Acid Calcium Ferritin Total Bilirubin AST ALT Alkaline Phosphatase Lactate Dehydrogenase C-Reactive Protein Total Protein Albumin Arterial Blood Glucose Arterial Blood Ionized Calcium Ur Specific [place] Vancomycin Trough Coronavirus (PCR) 11/20/20 11/20/20 11/20/20 08:50 11:32 16:19 WBC RBC Hgb Hct Plt Count Lymph % (Auto) Mobile % (Auto) Lymph # (Auto) Mobile # (Auto) Baso # (Auto) Seg Neutrophils % Seg Neuts % (Manual) Lymphocytes % (Manual) Seg Neutrophils # Seg Neutrophils # Man Lymphocytes # (Manual) D-Dimer ABG pH POC ABG pCO2 POC ABG pO2 ABG Hemoglobin ABG Oxyhemoglobin ABG Sodium ABG Potassium ABG Chloride ABG Glucose Sodium 132 L Chloride 97.6 L Carbon Dioxide BUN 26 H Creatinine 0.5 L Glucose 201 H POC Glucose 296 H 327 H Hemoglobin A1c Lactic Acid Calcium 7.9 L Ferritin Total Bilirubin AST ALT Alkaline Phosphatase 137 H Lactate Dehydrogenase C-Reactive Protein Total Protein Albumin 2.6 L Arterial Blood Glucose Arterial Blood Ionized Calcium Ur Specific [place] Vancomycin Trough Coronavirus (PCR) 11/20/20 11/21/20 11/21/20 22:09 07:59 13:51 WBC RBC Hgb Hct Plt Count Lymph % (Auto) Mobile % (Auto) Lymph # (Auto) Mobile # (Auto) Baso # (Auto) Seg Neutrophils % Seg Neuts % (Manual) Lymphocytes % (Manual) Seg Neutrophils # Seg Neutrophils # Man Lymphocytes # (Manual) D-Dimer ABG pH POC ABG pCO2 POC ABG pO2 ABG Hemoglobin ABG Oxyhemoglobin ABG Sodium ABG Potassium ABG Chloride ABG Glucose Sodium Chloride Carbon Dioxide BUN Creatinine Glucose POC Glucose 311 H 218 H 304 H Hemoglobin A1c Lactic Acid Calcium Ferritin Total Bilirubin AST ALT Alkaline Phosphatase Lactate Dehydrogenase C-Reactive Protein Total Protein Albumin Arterial Blood Glucose Arterial Blood Ionized Calcium Ur Specific [place] Vancomycin Trough Coronavirus (PCR) 11/21/20 11/21/20 11/21/20 16:09 21:34 23:00 WBC RBC Hgb Hct Plt Count Lymph % (Auto) Mobile % (Auto) Lymph # (Auto) Mobile # (Auto) Baso # (Auto) Seg Neutrophils % Seg Neuts % (Manual) Lymphocytes % (Manual) Seg Neutrophils # Seg Neutrophils # Man Lymphocytes # (Manual) D-Dimer ABG pH 7.206 L POC ABG pCO2 59.3 H POC ABG pO2 76.7 L ABG Hemoglobin ABG Oxyhemoglobin ABG Sodium 133.1 L ABG Potassium ABG Chloride ABG Glucose 320 H Sodium Chloride Carbon Dioxide BUN Creatinine Glucose POC Glucose 239 H 279 H Hemoglobin A1c Lactic Acid Calcium Ferritin Total Bilirubin AST ALT Alkaline Phosphatase Lactate Dehydrogenase C-Reactive Protein Total Protein Albumin Arterial Blood Glucose 320 H Arterial Blood Ionized Calcium Ur Specific [place] Vancomycin Trough Coronavirus (PCR) 11/22/20 11/22/20 11/22/20 04:52 04:52 04:52 WBC RBC Hgb Hct Plt Count Lymph % (Auto) Mobile % (Auto) Lymph # (Auto) Mobile # (Auto) Baso # (Auto) Seg Neutrophils % Seg Neuts % (Manual) Lymphocytes % (Manual) Seg Neutrophils # Seg Neutrophils # Man Lymphocytes # (Manual) D-Dimer 1858.36 H ABG pH POC ABG pCO2 POC ABG pO2 ABG Hemoglobin ABG Oxyhemoglobin ABG Sodium ABG Potassium ABG Chloride ABG Glucose Sodium Chloride Carbon Dioxide BUN Creatinine Glucose POC Glucose Hemoglobin A1c Lactic Acid Calcium Ferritin 734.2 H Total Bilirubin AST ALT Alkaline Phosphatase Lactate Dehydrogenase 404 H C-Reactive Protein 2.80 H Total Protein Albumin Arterial Blood Glucose Arterial Blood Ionized Calcium Ur Specific [place] Vancomycin Trough Coronavirus (PCR) 11/22/20 11/22/20 11/22/20 05:12 05:39 11:50 WBC RBC Hgb Hct Plt Count Lymph % (Auto) Mobile % (Auto) Lymph # (Auto) Mobile # (Auto) Baso # (Auto) Seg Neutrophils % Seg Neuts % (Manual) Lymphocytes % (Manual) Seg Neutrophils # Seg Neutrophils # Man Lymphocytes # (Manual) D-Dimer ABG pH POC ABG pCO2 POC ABG pO2 51.0 L ABG Hemoglobin ABG Oxyhemoglobin ABG Sodium 131.2 L ABG Potassium 4.6 H ABG Chloride ABG Glucose 317 H Sodium Chloride Carbon Dioxide BUN Creatinine Glucose POC Glucose 340 H 417 H Hemoglobin A1c Lactic Acid Calcium Ferritin Total Bilirubin AST ALT Alkaline Phosphatase Lactate Dehydrogenase C-Reactive Protein Total Protein Albumin Arterial Blood Glucose 317 H Arterial Blood Ionized Calcium 4.4 L Ur Specific Capron Vancomycin Trough Coronavirus (PCR) 11/22/20 11/22/20 11/22/20 12:22 12:22 17:10 WBC 14.4 H RBC Hgb Hct Plt Count Lymph % (Auto) Mobile % (Auto) Lymph # (Auto) Mobile # (Auto) Baso # (Auto) Seg Neutrophils % Seg Neuts % (Manual) 98.0 H Lymphocytes % (Manual) Seg Neutrophils # Seg Neutrophils # Man 14.1 H Lymphocytes # (Manual) 0.0 L D-Dimer ABG pH POC ABG pCO2 POC ABG pO2 ABG Hemoglobin ABG Oxyhemoglobin ABG Sodium ABG Potassium ABG Chloride ABG Glucose Sodium 132 L Chloride Carbon Dioxide BUN 36 H Creatinine 0.6 L Glucose 219 H POC Glucose 157 H Hemoglobin A1c Lactic Acid Calcium 7.2 L Ferritin Total Bilirubin AST ALT Alkaline Phosphatase Lactate Dehydrogenase C-Reactive Protein Total Protein Albumin Arterial Blood Glucose Arterial Blood Ionized Calcium Ur Specific [place] Vancomycin Trough Coronavirus (PCR) 11/22/20 11/22/20 11/22/20 18:33 21:44 23:47 WBC RBC Hgb Hct Plt Count Lymph % (Auto) Mobile % (Auto) Lymph # (Auto) Mobile # (Auto) Baso # (Auto) Seg Neutrophils % Seg Neuts % (Manual) Lymphocytes % (Manual) Seg Neutrophils # Seg Neutrophils # Man Lymphocytes # (Manual) D-Dimer ABG pH POC ABG pCO2 POC ABG pO2 60.8 L ABG Hemoglobin ABG Oxyhemoglobin 88.1 L ABG Sodium 135.1 L ABG Potassium ABG Chloride ABG Glucose 141 H Sodium Chloride Carbon Dioxide BUN Creatinine Glucose POC Glucose 117 H 123 H Hemoglobin A1c Lactic Acid Calcium Ferritin Total Bilirubin AST ALT Alkaline Phosphatase Lactate Dehydrogenase C-Reactive Protein Total Protein Albumin Arterial Blood Glucose 141 H Arterial Blood Ionized Calcium Ur Specific Capron Vancomycin Trough Coronavirus (PCR) 11/23/20 11/23/20 11/23/20 04:00 04:00 05:23 WBC 14.4 H RBC Hgb Hct Plt Count Lymph % (Auto) Mobile % (Auto) Lymph # (Auto) Mobile # (Auto) Baso # (Auto) Seg Neutrophils % Seg Neuts % (Manual) Lymphocytes % (Manual) Seg Neutrophils # Seg Neutrophils # Man Lymphocytes # (Manual) D-Dimer ABG pH POC ABG pCO2 POC ABG pO2 ABG Hemoglobin ABG Oxyhemoglobin ABG Sodium ABG Potassium ABG Chloride ABG Glucose Sodium 136 L Chloride Carbon Dioxide BUN 33 H Creatinine 0.6 L Glucose 115 H POC Glucose 173 H Hemoglobin A1c Lactic Acid Calcium 7.1 L Ferritin Total Bilirubin AST 64 H ALT 75 H Alkaline Phosphatase Lactate Dehydrogenase C-Reactive Protein Total Protein 5.9 L D Albumin 2.4 L Arterial Blood Glucose Arterial Blood Ionized Calcium Ur Specific Capron Vancomycin Trough Coronavirus (PCR) 11/23/20 11/23/20 11/23/20 05:40 11:27 17:10 WBC RBC Hgb Hct Plt Count Lymph % (Auto) Mobile % (Auto) Lymph # (Auto) Mobile # (Auto) Baso # (Auto) Seg Neutrophils % Seg Neuts % (Manual) Lymphocytes % (Manual) Seg Neutrophils # Seg Neutrophils # Man Lymphocytes # (Manual) D-Dimer ABG pH POC ABG pCO2 POC ABG pO2 56.5 L ABG Hemoglobin ABG Oxyhemoglobin ABG Sodium ABG Potassium ABG Chloride 109.0 H ABG Glucose 114 H Sodium Chloride Carbon Dioxide BUN Creatinine Glucose POC Glucose 114 H 136 H Hemoglobin A1c Lactic Acid Calcium Ferritin Total Bilirubin AST ALT Alkaline Phosphatase Lactate Dehydrogenase C-Reactive Protein Total Protein Albumin Arterial Blood Glucose 114 H Arterial Blood Ionized Calcium 4.5 L Ur Specific Capron Vancomycin Trough Coronavirus (PCR) 11/24/20 11/24/20 11/24/20 05:14 05:14 05:14 WBC RBC Hgb Hct Plt Count Lymph % (Auto) [place] % (Auto) Lymph # (Auto) [place] # (Auto) Baso # (Auto) Seg Neutrophils % Seg Neuts % (Manual) Lymphocytes % (Manual) Seg Neutrophils # Seg Neutrophils # Man Lymphocytes # (Manual) D-Dimer 1433.39 H ABG pH POC ABG pCO2 POC ABG pO2 ABG Hemoglobin ABG Oxyhemoglobin ABG Sodium ABG Potassium ABG Chloride ABG Glucose Sodium Chloride Carbon Dioxide BUN Creatinine Glucose POC Glucose Hemoglobin A1c Lactic Acid Calcium Ferritin 997.5 H Total Bilirubin AST ALT Alkaline Phosphatase Lactate Dehydrogenase 463 H C-Reactive Protein Total Protein Albumin Arterial Blood Glucose Arterial Blood Ionized Calcium Ur Specific Capron Vancomycin Trough Coronavirus (PCR) 11/24/20 11/24/20 11/24/20 05:31 05:36 12:05 WBC RBC Hgb Hct Plt Count Lymph % (Auto) [place] % (Auto) Lymph # (Auto) [place] # (Auto) Baso # (Auto) Seg Neutrophils % Seg Neuts % (Manual) Lymphocytes % (Manual) Seg Neutrophils # Seg Neutrophils # Man Lymphocytes # (Manual) D-Dimer ABG pH POC ABG pCO2 POC ABG pO2 57.2 L ABG Hemoglobin ABG Oxyhemoglobin ABG Sodium ABG Potassium ABG Chloride ABG Glucose 180 H Sodium Chloride Carbon Dioxide BUN Creatinine Glucose POC Glucose 199 H 143 H Hemoglobin A1c Lactic Acid Calcium Ferritin Total Bilirubin AST ALT Alkaline Phosphatase Lactate Dehydrogenase C-Reactive Protein Total Protein Albumin Arterial Blood Glucose 180 H Arterial Blood Ionized Calcium 4.5 L Ur Specific Capron Vancomycin Trough Coronavirus (PCR) 11/24/20 11/24/20 11/24/20 12:14 17:47 23:47 WBC RBC Hgb Hct Plt Count Lymph % (Auto) [place] % (Auto) Lymph # (Auto) [place] # (Auto) Baso # (Auto) Seg Neutrophils % Seg Neuts % (Manual) Lymphocytes % (Manual) Seg Neutrophils # Seg Neutrophils # Man Lymphocytes # (Manual) D-Dimer ABG pH 7.261 L POC ABG pCO2 59.7 H POC ABG pO2 75.7 L ABG Hemoglobin ABG Oxyhemoglobin 92.5 L ABG Sodium ABG Potassium ABG Chloride 108.0 H ABG Glucose 150 H Sodium Chloride Carbon Dioxide BUN Creatinine Glucose POC Glucose 223 H 179 H Hemoglobin A1c Lactic Acid Calcium Ferritin Total Bilirubin AST ALT Alkaline Phosphatase Lactate Dehydrogenase C-Reactive Protein Total Protein Albumin Arterial Blood Glucose 150 H Arterial Blood Ionized Calcium Ur Specific Capron Vancomycin Trough Coronavirus (PCR) 11/25/20 11/25/20 11/25/20 03:29 05:07 05:15 WBC 13.9 H RBC Hgb Hct Plt Count Lymph % (Auto) [place] % (Auto) Lymph # (Auto) [place] # (Auto) Baso # (Auto) Seg Neutrophils % Seg Neuts % (Manual) 97.0 H Lymphocytes % (Manual) Seg Neutrophils # Seg Neutrophils # Man 13.5 H Lymphocytes # (Manual) 0.0 L D-Dimer ABG pH 7.272 L POC ABG pCO2 69.0 H POC ABG pO2 132.9 H ABG Hemoglobin ABG Oxyhemoglobin ABG Sodium ABG Potassium ABG Chloride ABG Glucose 174 H Sodium Chloride Carbon Dioxide BUN Creatinine Glucose POC Glucose 168 H Hemoglobin A1c Lactic Acid Calcium Ferritin Total Bilirubin AST ALT Alkaline Phosphatase Lactate Dehydrogenase C-Reactive Protein Total Protein Albumin Arterial Blood Glucose 174 H Arterial Blood Ionized Calcium Ur Specific Capron Vancomycin Trough Coronavirus (PCR) 11/25/20 11/25/20 11/25/20 05:15 11:25 17:35 WBC RBC Hgb Hct Plt Count Lymph % (Auto) [place] % (Auto) Lymph # (Auto) [place] # (Auto) Baso # (Auto) Seg Neutrophils % Seg Neuts % (Manual) Lymphocytes % (Manual) Seg Neutrophils # Seg Neutrophils # Man Lymphocytes # (Manual) D-Dimer ABG pH POC ABG pCO2 POC ABG pO2 ABG Hemoglobin ABG Oxyhemoglobin ABG Sodium ABG Potassium ABG Chloride ABG Glucose Sodium Chloride Carbon Dioxide BUN 29 H Creatinine 0.5 L Glucose 161 H POC Glucose 224 H 228 H Hemoglobin A1c Lactic Acid Calcium 7.8 L Ferritin Total Bilirubin AST 89 H ALT 129 H Alkaline Phosphatase Lactate Dehydrogenase C-Reactive Protein Total Protein 5.8 L Albumin 2.5 L Arterial Blood Glucose Arterial Blood Ionized Calcium Ur Specific Capron Vancomycin Trough Coronavirus (PCR) 11/25/20 11/25/20 11/26/20 20:45 23:28 04:00 WBC RBC Hgb Hct Plt Count Lymph % (Auto) [place] % (Auto) Lymph # (Auto) [place] # (Auto) Baso # (Auto) Seg Neutrophils % Seg Neuts % (Manual) Lymphocytes % (Manual) Seg Neutrophils # Seg Neutrophils # Man Lymphocytes # (Manual) D-Dimer ABG pH POC ABG pCO2 POC ABG pO2 ABG Hemoglobin ABG Oxyhemoglobin ABG Sodium ABG Potassium ABG Chloride ABG Glucose Sodium Chloride Carbon Dioxide BUN Creatinine Glucose POC Glucose 177 H 243 H Hemoglobin A1c Lactic Acid Calcium Ferritin 778.8 H Total Bilirubin AST ALT Alkaline Phosphatase Lactate Dehydrogenase C-Reactive Protein Total Protein Albumin Arterial Blood Glucose Arterial Blood Ionized Calcium Ur Specific Capron Vancomycin Trough Coronavirus (PCR) 11/26/20 11/26/20 11/26/20 04:00 05:34 06:04 WBC RBC Hgb Hct Plt Count Lymph % (Auto) [place] % (Auto) Lymph # (Auto) [place] # (Auto) Baso # (Auto) Seg Neutrophils % Seg Neuts % (Manual) Lymphocytes % (Manual) Seg Neutrophils # Seg Neutrophils # Man Lymphocytes # (Manual) D-Dimer 926.11 H ABG pH POC ABG pCO2 POC ABG pO2 ABG Hemoglobin ABG Oxyhemoglobin ABG Sodium ABG Potassium ABG Chloride ABG Glucose Sodium Chloride Carbon Dioxide 39 H D BUN 30 H Creatinine 0.5 L Glucose 193 H POC Glucose 178 H Hemoglobin A1c Lactic Acid Calcium 7.7 L Ferritin Total Bilirubin AST 65 H ALT 132 H Alkaline Phosphatase Lactate Dehydrogenase 288 H C-Reactive Protein 1.40 H Total Protein 5.7 L Albumin 2.4 L Arterial Blood Glucose Arterial Blood Ionized Calcium Ur Specific Capron Vancomycin Trough Coronavirus (PCR) 11/26/20 11/26/20 11/26/20 06:04 08:47 11:20 WBC 12.4 H RBC Hgb Hct Plt Count Lymph % (Auto) [place] % (Auto) Lymph # (Auto) [place] # (Auto) Baso # (Auto) Seg Neutrophils % Seg Neuts % (Manual) 98.0 H Lymphocytes % (Manual) 1.0 L Seg Neutrophils # Seg Neutrophils # Man 12.2 H Lymphocytes # (Manual) 0.1 L D-Dimer ABG pH POC ABG pCO2 75.2 H POC ABG pO2 61.9 L ABG Hemoglobin ABG Oxyhemoglobin 90.3 L ABG Sodium ABG Potassium ABG Chloride ABG Glucose 243 H Sodium Chloride Carbon Dioxide BUN Creatinine Glucose POC Glucose 255 H Hemoglobin A1c Lactic Acid Calcium Ferritin Total Bilirubin AST ALT Alkaline Phosphatase Lactate Dehydrogenase C-Reactive Protein Total Protein Albumin Arterial Blood Glucose 243 H Arterial Blood Ionized Calcium Ur Specific Capron Vancomycin Trough Coronavirus (PCR) 11/26/20 11/26/20 11/26/20 16:20 17:15 23:41 WBC RBC Hgb Hct Plt Count Lymph % (Auto) [place] % (Auto) Lymph # (Auto) [place] # (Auto) Baso # (Auto) Seg Neutrophils % Seg Neuts % (Manual) Lymphocytes % (Manual) Seg Neutrophils # Seg Neutrophils # Man Lymphocytes # (Manual) D-Dimer ABG pH POC ABG pCO2 66.6 H POC ABG pO2 78.1 L ABG Hemoglobin ABG Oxyhemoglobin ABG Sodium ABG Potassium ABG Chloride ABG Glucose 244 H Sodium Chloride Carbon Dioxide BUN Creatinine Glucose POC Glucose 219 H 210 H Hemoglobin A1c Lactic Acid Calcium Ferritin Total Bilirubin AST ALT Alkaline Phosphatase Lactate Dehydrogenase C-Reactive Protein Total Protein Albumin Arterial Blood Glucose 244 H Arterial Blood Ionized Calcium Ur Specific [place]ron Vancomycin Trough Coronavirus (PCR) 11/27/20 11/27/20 11/27/20 04:46 05:38 06:25 WBC 13.8 H RBC Hgb Hct Plt Count Lymph % (Auto) 2.0 L Mobile % (Auto) Lymph # (Auto) 0.3 L [place] # (Auto) Baso # (Auto) Seg Neutrophils % Seg Neuts % (Manual) 96.0 H Lymphocytes % (Manual) Seg Neutrophils # 12.7 H Seg Neutrophils # Man 13.2 H Lymphocytes # (Manual) 0.0 L D-Dimer ABG pH POC ABG pCO2 63.0 H POC ABG pO2 53.6 L ABG Hemoglobin ABG Oxyhemoglobin 87.8 L ABG Sodium 115.4 L ABG Potassium ABG Chloride ABG Glucose 219 H Sodium Chloride Carbon Dioxide BUN Creatinine Glucose POC Glucose 227 H Hemoglobin A1c Lactic Acid Calcium Ferritin Total Bilirubin AST ALT Alkaline Phosphatase Lactate Dehydrogenase C-Reactive Protein Total Protein Albumin Arterial Blood Glucose 219 H Arterial Blood Ionized Calcium Ur Specific [place]ron Vancomycin Trough Coronavirus (PCR) 11/27/20 11/27/20 11/27/20 06:25 18:05 23:29 WBC RBC Hgb Hct Plt Count Lymph % (Auto) [place] % (Auto) Lymph # (Auto) [place] # (Auto) Baso # (Auto) Seg Neutrophils % Seg Neuts % (Manual) Lymphocytes % (Manual) Seg Neutrophils # Seg Neutrophils # Man Lymphocytes # (Manual) D-Dimer ABG pH POC ABG pCO2 POC ABG pO2 ABG Hemoglobin ABG Oxyhemoglobin ABG Sodium ABG Potassium ABG Chloride ABG Glucose Sodium Chloride Carbon Dioxide 38 H BUN 34 H Creatinine 0.4 L Glucose 243 H POC Glucose 329 H 227 H Hemoglobin A1c Lactic Acid Calcium 7.9 L Ferritin Total Bilirubin AST 50 H ALT 110 H Alkaline Phosphatase Lactate Dehydrogenase C-Reactive Protein Total Protein 6.1 L Albumin 2.4 L Arterial Blood Glucose Arterial Blood Ionized Calcium Ur Specific [place] Vancomycin Trough Coronavirus (PCR) 11/28/20 11/28/20 11/28/20 03:45 03:45 03:46 WBC 12.2 H RBC Hgb Hct Plt Count Lymph % (Auto) [place] % (Auto) Lymph # (Auto) [place] # (Auto) Baso # (Auto) Seg Neutrophils % Seg Neuts % (Manual) 93.0 H Lymphocytes % (Manual) 2.0 L Seg Neutrophils # Seg Neutrophils # Man 11.3 H Lymphocytes # (Manual) 0.2 L D-Dimer ABG pH POC ABG pCO2 68.4 H POC ABG pO2 55.4 L ABG Hemoglobin ABG Oxyhemoglobin ABG Sodium ABG Potassium ABG Chloride ABG Glucose 197 H Sodium Chloride Carbon Dioxide 36 H BUN 37 H Creatinine 0.4 L Glucose 194 H POC Glucose Hemoglobin A1c Lactic Acid Calcium 8.1 L Ferritin Total Bilirubin AST ALT 86 H Alkaline Phosphatase Lactate Dehydrogenase C-Reactive Protein Total Protein 6.0 L Albumin 2.3 L Arterial Blood Glucose 197 H Arterial Blood Ionized Calcium Ur Specific Capron Vancomycin Trough Coronavirus (PCR) 11/28/20 11/28/20 11/29/20 05:24 12:21 04:41 WBC RBC Hgb Hct Plt Count Lymph % (Auto) [place] % (Auto) Lymph # (Auto) [place] # (Auto) Baso # (Auto) Seg Neutrophils % Seg Neuts % (Manual) Lymphocytes % (Manual) Seg Neutrophils # Seg Neutrophils # Man Lymphocytes # (Manual) D-Dimer ABG pH POC ABG pCO2 55.1 H POC ABG pO2 53.6 L ABG Hemoglobin ABG Oxyhemoglobin 87.1 L ABG Sodium 131.2 L ABG Potassium ABG Chloride ABG Glucose 164 H Sodium Chloride Carbon Dioxide BUN Creatinine Glucose POC Glucose 173 H 126 H Hemoglobin A1c Lactic Acid Calcium Ferritin Total Bilirubin AST ALT Alkaline Phosphatase Lactate Dehydrogenase C-Reactive Protein Total Protein Albumin Arterial Blood Glucose 164 H Arterial Blood Ionized Calcium 4.4 L Ur Specific Capron Vancomycin Trough Coronavirus (PCR) 11/29/20 11/29/20 11/29/20 05:29 12:41 13:28 WBC RBC Hgb Hct Plt Count Lymph % (Auto) [place] % (Auto) Lymph # (Auto) [place] # (Auto) Baso # (Auto) Seg Neutrophils % Seg Neuts % (Manual) Lymphocytes % (Manual) Seg Neutrophils # Seg Neutrophils # Man Lymphocytes # (Manual) D-Dimer ABG pH POC ABG pCO2 POC ABG pO2 ABG Hemoglobin ABG Oxyhemoglobin ABG Sodium ABG Potassium ABG Chloride ABG Glucose Sodium Chloride Carbon Dioxide 40 H BUN 32 H Creatinine 0.4 L Glucose 274 H POC Glucose 173 H 257 H Hemoglobin A1c Lactic Acid Calcium 7.2 L Ferritin Total Bilirubin AST 57 H ALT 102 H Alkaline Phosphatase Lactate Dehydrogenase C-Reactive Protein Total Protein 5.7 L Albumin 2.1 L Arterial Blood Glucose Arterial Blood Ionized Calcium Ur Specific Capron Vancomycin Trough Coronavirus (PCR) 11/29/20 11/29/20 11/29/20 15:40 17:36 21:26 WBC RBC Hgb Hct Plt Count Lymph % (Auto) [place] % (Auto) Lymph # (Auto) [place] # (Auto) Baso # (Auto) Seg Neutrophils % Seg Neuts % (Manual) Lymphocytes % (Manual) Seg Neutrophils # Seg Neutrophils # Man Lymphocytes # (Manual) D-Dimer ABG pH POC ABG pCO2 POC ABG pO2 ABG Hemoglobin ABG Oxyhemoglobin ABG Sodium ABG Potassium ABG Chloride ABG Glucose Sodium Chloride Carbon Dioxide BUN Creatinine Glucose POC Glucose 240 H 244 H Hemoglobin A1c Lactic Acid Calcium Ferritin Total Bilirubin AST ALT Alkaline Phosphatase Lactate Dehydrogenase C-Reactive Protein Total Protein Albumin Arterial Blood Glucose Arterial Blood Ionized Calcium Ur Specific [place]ron Vancomycin Trough 4.0 L Coronavirus (PCR) 11/29/20 11/30/20 11/30/20 23:26 03:30 03:30 WBC RBC Hgb Hct Plt Count Lymph % (Auto) [place] % (Auto) Lymph # (Auto) [place] # (Auto) Baso # (Auto) Seg Neutrophils % Seg Neuts % (Manual) 97.0 H Lymphocytes % (Manual) 1.0 L Seg Neutrophils # Seg Neutrophils # Man 9.9 H Lymphocytes # (Manual) 0.1 L D-Dimer ABG pH POC ABG pCO2 POC ABG pO2 ABG Hemoglobin ABG Oxyhemoglobin ABG Sodium ABG Potassium ABG Chloride ABG Glucose Sodium Chloride Carbon Dioxide 38 H BUN 34 H Creatinine 0.4 L Glucose 305 H POC Glucose 283 H Hemoglobin A1c Lactic Acid Calcium 7.6 L Ferritin Total Bilirubin AST ALT 89 H Alkaline Phosphatase Lactate Dehydrogenase C-Reactive Protein Total Protein 6.0 L Albumin 2.3 L Arterial Blood Glucose Arterial Blood Ionized Calcium Ur Specific Capron Vancomycin Trough Coronavirus (PCR) 11/30/20 11/30/20 11/30/20 03:57 05:22 12:05 WBC RBC Hgb Hct Plt Count Lymph % (Auto) [place] % (Auto) Lymph # (Auto) [place] # (Auto) Baso # (Auto) Seg Neutrophils % Seg Neuts % (Manual) Lymphocytes % (Manual) Seg Neutrophils # Seg Neutrophils # Man Lymphocytes # (Manual) D-Dimer ABG pH POC ABG pCO2 60.8 H POC ABG pO2 51.1 L ABG Hemoglobin ABG Oxyhemoglobin 84.6 L ABG Sodium ABG Potassium ABG Chloride ABG Glucose 315 H Sodium Chloride Carbon Dioxide BUN Creatinine Glucose POC Glucose 295 H 413 H Hemoglobin A1c Lactic Acid Calcium Ferritin Total Bilirubin AST ALT Alkaline Phosphatase Lactate Dehydrogenase C-Reactive Protein Total Protein Albumin Arterial Blood Glucose 315 H Arterial Blood Ionized Calcium 4.5 L Ur Specific Capron Vancomycin Trough Coronavirus (PCR) 11/30/20 11/30/20 12/01/20 17:24 23:25 02:14 WBC RBC Hgb Hct Plt Count Lymph % (Auto) [place] % (Auto) Lymph # (Auto) [place] # (Auto) Baso # (Auto) Seg Neutrophils % Seg Neuts % (Manual) Lymphocytes % (Manual) Seg Neutrophils # Seg Neutrophils # Man Lymphocytes # (Manual) D-Dimer ABG pH 7.278 L POC ABG pCO2 78.1 H POC ABG pO2 79.5 L ABG Hemoglobin 11.6 L ABG Oxyhemoglobin ABG Sodium 134.5 L ABG Potassium 4.6 H ABG Chloride ABG Glucose 286 H Sodium Chloride Carbon Dioxide BUN Creatinine Glucose POC Glucose 305 H 302 H Hemoglobin A1c Lactic Acid Calcium Ferritin Total Bilirubin AST ALT Alkaline Phosphatase Lactate Dehydrogenase C-Reactive Protein Total Protein Albumin Arterial Blood Glucose 286 H Arterial Blood Ionized Calcium Ur Specific Capron Vancomycin Trough Coronavirus (PCR) 12/01/20 12/01/20 12/01/20 03:35 03:35 05:22 WBC 13.4 H RBC 3.54 L Hgb 10.4 L Hct 31.8 L Plt Count Lymph % (Auto) [place] % (Auto) Lymph # (Auto) [place] # (Auto) Baso # (Auto) Seg Neutrophils % Seg Neuts % (Manual) 95.0 H Lymphocytes % (Manual) 3.0 L Seg Neutrophils # Seg Neutrophils # Man 12.7 H Lymphocytes # (Manual) 0.4 L D-Dimer ABG pH POC ABG pCO2 POC ABG pO2 ABG Hemoglobin ABG Oxyhemoglobin ABG Sodium ABG Potassium ABG Chloride ABG Glucose Sodium Chloride Carbon Dioxide 35 H BUN 34 H Creatinine 0.5 L Glucose 279 H POC Glucose 259 H Hemoglobin A1c Lactic Acid Calcium 7.6 L Ferritin Total Bilirubin AST ALT 63 H Alkaline Phosphatase Lactate Dehydrogenase C-Reactive Protein Total Protein 4.8 L Albumin 2.1 L Arterial Blood Glucose Arterial Blood Ionized Calcium Ur Specific Capron Vancomycin Trough Coronavirus (PCR) 12/01/20 12/01/20 12/01/20 12:05 17:40 23:46 WBC RBC Hgb Hct Plt Count Lymph % (Auto) [place] % (Auto) Lymph # (Auto) [place] # (Auto) Baso # (Auto) Seg Neutrophils % Seg Neuts % (Manual) Lymphocytes % (Manual) Seg Neutrophils # Seg Neutrophils # Man Lymphocytes # (Manual) D-Dimer ABG pH POC ABG pCO2 POC ABG pO2 ABG Hemoglobin ABG Oxyhemoglobin ABG Sodium ABG Potassium ABG Chloride ABG Glucose Sodium Chloride Carbon Dioxide BUN Creatinine Glucose POC Glucose 197 H 244 H 284 H Hemoglobin A1c Lactic Acid Calcium Ferritin Total Bilirubin AST ALT Alkaline Phosphatase Lactate Dehydrogenase C-Reactive Protein Total Protein Albumin Arterial Blood Glucose Arterial Blood Ionized Calcium Ur Specific Capron Vancomycin Trough Coronavirus (PCR) 12/02/20 12/02/20 12/02/20 02:14 03:03 04:11 WBC 16.5 H RBC 3.55 L Hgb 10.5 L Hct 31.9 L Plt Count Lymph % (Auto) [place] % (Auto) Lymph # (Auto) [place] # (Auto) Baso # (Auto) Seg Neutrophils % Seg Neuts % (Manual) 90.0 H Lymphocytes % (Manual) 3.0 L Seg Neutrophils # Seg Neutrophils # Man 14.9 H Lymphocytes # (Manual) 0.5 L D-Dimer ABG pH POC ABG pCO2 74.8 H POC ABG pO2 58.9 L ABG Hemoglobin 11.5 L ABG Oxyhemoglobin ABG Sodium ABG Potassium ABG Chloride ABG Glucose 264 H Sodium Chloride Carbon Dioxide 37 H BUN 30 H Creatinine 0.4 L Glucose 245 H POC Glucose Hemoglobin A1c Lactic Acid Calcium 7.5 L Ferritin Total Bilirubin AST ALT Alkaline Phosphatase Lactate Dehydrogenase C-Reactive Protein Total Protein 5.2 L Albumin 2.2 L Arterial Blood Glucose 264 H Arterial Blood Ionized Calcium 4.5 L Ur Specific Capron Vancomycin Trough Coronavirus (PCR) 12/02/20 12/02/20 12/02/20 05:19 11:46 17:52 WBC RBC Hgb Hct Plt Count Lymph % (Auto) [place] % (Auto) Lymph # (Auto) [place] # (Auto) Baso # (Auto) Seg Neutrophils % Seg Neuts % (Manual) Lymphocytes % (Manual) Seg Neutrophils # Seg Neutrophils # Man Lymphocytes # (Manual) D-Dimer ABG pH POC ABG pCO2 POC ABG pO2 ABG Hemoglobin ABG Oxyhemoglobin ABG Sodium ABG Potassium ABG Chloride ABG Glucose Sodium Chloride Carbon Dioxide BUN Creatinine Glucose POC Glucose 238 H 236 H 233 H Hemoglobin A1c Lactic Acid Calcium Ferritin Total Bilirubin AST ALT Alkaline Phosphatase Lactate Dehydrogenase C-Reactive Protein Total Protein Albumin Arterial Blood Glucose Arterial Blood Ionized Calcium Ur Specific Capron Vancomycin Trough Coronavirus (PCR) 12/02/20 12/03/20 12/03/20 23:23 03:21 04:35 WBC RBC Hgb Hct Plt Count 112 L Lymph % (Auto) [place] % (Auto) Lymph # (Auto) [place] # (Auto) Baso # (Auto) Seg Neutrophils % Seg Neuts % (Manual) 93.0 H Lymphocytes % (Manual) 4.0 L Seg Neutrophils # Seg Neutrophils # Man 9.1 H Lymphocytes # (Manual) 0.4 L D-Dimer ABG pH 7.299 L POC ABG pCO2 82.1 H POC ABG pO2 62.4 L ABG Hemoglobin 11.5 L ABG Oxyhemoglobin 89.6 L ABG Sodium 134.3 L ABG Potassium ABG Chloride 95.0 L ABG Glucose 203 H Sodium Chloride Carbon Dioxide BUN Creatinine Glucose POC Glucose 213 H Hemoglobin A1c Lactic Acid Calcium Ferritin Total Bilirubin AST ALT Alkaline Phosphatase Lactate Dehydrogenase C-Reactive Protein Total Protein Albumin Arterial Blood Glucose 203 H Arterial Blood Ionized Calcium 4.5 L Ur Specific Capron Vancomycin Trough Coronavirus (PCR) 12/03/20 12/03/20 04:35 05:42 WBC RBC Hgb Hct Plt Count Lymph % (Auto) [place] % (Auto) Lymph # (Auto) [place] # (Auto) Baso # (Auto) Seg Neutrophils % Seg Neuts % (Manual) Lymphocytes % (Manual) Seg Neutrophils # Seg Neutrophils # Man Lymphocytes # (Manual) D-Dimer ABG pH POC ABG pCO2 POC ABG pO2 ABG Hemoglobin ABG Oxyhemoglobin ABG Sodium ABG Potassium ABG Chloride ABG Glucose Sodium Chloride 97.8 L Carbon Dioxide 43 H* BUN 25 H Creatinine 0.3 L Glucose 214 H POC Glucose 193 H Hemoglobin A1c Lactic Acid Calcium 7.7 L Ferritin Total Bilirubin AST ALT 63 H Alkaline Phosphatase 132 H Lactate Dehydrogenase C-Reactive Protein Total Protein 5.1 L Albumin 2.4 L Arterial Blood Glucose Arterial Blood Ionized Calcium Ur Specific Capron Vancomycin Trough Coronavirus (PCR)
[2020-12-03] MEDS ORDERED: SENNOSIDES/DOCUSATE SODIUM 8.6/50 MG TAB PO SCH (11:00)
--- NOTE | 2020-12-03 11:54 | Progress Note ---
Assessment and Plan Cultures: SARS CoV-2 PCR: positive Blood culture: No growth 11/21/2020 tracheal aspirate culture: MRSA A/P: 59-year-old male: #Bilateral pneumonia: secondary to COVID-19. Admission labs showed leukocytosis, D-dimer greater than 10,000, ferritin 672, CRP 19.8, LDH 663, creatinine 0.6, procalcitonin 0.51. Completed 5 days of abx, remdesivir. #MRSA on ET aspirate culture, ?colonization v/s true disease, difficult to differentiate. #Right-sided pneumothorax and pneumomediastinum: Underwent placement of right- sided chest tube, likely secondary to COVID-19. #Acute hypoxic respiratory failure: Failed BiPAP. Remains on the vent. #Elevated d-dimer: DVT scan negative. Unable to get CTA Chest due to patients unstable clinical status #Transaminitis: secondary to COVID-19. Recs: -MRSA on ET aspirate culture, ?colonization v/s true disease, difficult to differentiate, remains critically ill,IV Vancomycin x 7 days. Stop date 12/03/2020 -continue steroids per ICU team -Continue prophylactic anticoagulation based on d-dimer per hospital protocol -trend ferritin, LDH, d-dimer, CRP every 2-3 days for risk stratification and to assess disease progression -guarded prognosi GRigo Carrillo MD [facility] ([facility] O: [phone] F: [phone] Subjective Date of service: 12/03/20 Principal diagnosis: COVID-19 Interval history: Afebrile, normal whtie counte. Objective - Exam Narrative Exam: Physical exam deferred due to PPE conservation strategy. Please refer to primary team's note. - Constitutional Vitals: Vital Signs Temp Pulse Resp BP Pulse Ox 98.2 F 86 30 H 112/62 99 12/03/20 08:00 12/03/20 11:31 12/03/20 11:00 12/03/20 11:31 12/03/20 11:31 Temperature -Last 24 Hours Temperature 98.2 F Temperature 98.2 F Temperature 98.5 F Temperature 98.5 F Temperature 99.7 F Temperature 98.8 F Temperature 97.9 F - Labs CBC & Chem 7: 12/03/20 04:35 12/03/20 04:35 Labs: Abnormal lab results 12/02/20 12/02/20 12/02/20 Range/Units 11:46 17:52 23:23 Plt Count (140-440) K/mm3 Seg Neuts % (Manual) (40.0-70.0) % Lymphocytes % (Manual) (13.4-35.0) % Seg Neutrophils # Man (1.8-7.7) K/mm3 Lymphocytes # (Manual) (1.2-5.4) K/mm3 ABG pH (7.320-7.450) POC ABG pCO2 (32.0-48.0) mmHg POC ABG pO2 (83-108) mmHg ABG Hemoglobin (12.0-17.5) ABG Oxyhemoglobin (94-98) ABG Sodium (136.0-145.0) mmol/L ABG Chloride (98-107) mmol/L ABG Glucose (65-95) mg/dL Chloride (98-107) mmol/L Carbon Dioxide (22-30) mmol/L BUN (9-20) mg/dL Creatinine (0.8-1.3) mg/dL Glucose (75-100) mg/dL POC Glucose 236 H 233 H 213 H (70-105) mg/dL Calcium (8.4-10.2) mg/dL ALT (7-56) units/L Alkaline Phosphatase (35-129) units/L Total Protein (6.3-8.2) g/dL Albumin (3.9-5) g/dL Arterial Blood Glucose (65-95) mg/dL Arterial Blood Ionized Calcium (4.6-5.3) mg/dL 12/03/20 12/03/20 12/03/20 Range/Units 03:21 04:35 04:35 Plt Count 112 L (140-440) K/mm3 Seg Neuts % (Manual) 93.0 H (40.0-70.0) % Lymphocytes % (Manual) 4.0 L (13.4-35.0) % Seg Neutrophils # Man 9.1 H (1.8-7.7) K/mm3 Lymphocytes # (Manual) 0.4 L (1.2-5.4) K/mm3 ABG pH 7.299 L (7.320-7.450) POC ABG pCO2 82.1 H (32.0-48.0) mmHg POC ABG pO2 62.4 L (83-108) mmHg ABG Hemoglobin 11.5 L (12.0-17.5) ABG Oxyhemoglobin 89.6 L (94-98) ABG Sodium 134.3 L (136.0-145.0) mmol/L ABG Chloride 95.0 L (98-107) mmol/L ABG Glucose 203 H (65-95) mg/dL Chloride 97.8 L (98-107) mmol/L Carbon Dioxide 43 H* (22-30) mmol/L BUN 25 H (9-20) mg/dL Creatinine 0.3 L (0.8-1.3) mg/dL Glucose 214 H (75-100) mg/dL POC Glucose (70-105) mg/dL Calcium 7.7 L (8.4-10.2) mg/dL ALT 63 H (7-56) units/L Alkaline Phosphatase 132 H (35-129) units/L Total Protein 5.1 L (6.3-8.2) g/dL Albumin 2.4 L (3.9-5) g/dL Arterial Blood Glucose 203 H (65-95) mg/dL Arterial Blood Ionized Calcium 4.5 L (4.6-5.3) mg/dL 12/03/20 12/03/20 Range/Units 05:42 11:28 Plt Count (140-440) K/mm3 Seg Neuts % (Manual) (40.0-70.0) % Lymphocytes % (Manual) (13.4-35.0) % Seg Neutrophils # Man (1.8-7.7) K/mm3 Lymphocytes # (Manual) (1.2-5.4) K/mm3 ABG pH (7.320-7.450) POC ABG pCO2 (32.0-48.0) mmHg POC ABG pO2 (83-108) mmHg ABG Hemoglobin (12.0-17.5) ABG Oxyhemoglobin (94-98) ABG Sodium (136.0-145.0) mmol/L ABG Chloride (98-107) mmol/L ABG Glucose (65-95) mg/dL Chloride (98-107) mmol/L Carbon Dioxide (22-30) mmol/L BUN (9-20) mg/dL Creatinine (0.8-1.3) mg/dL Glucose (75-100) mg/dL POC Glucose 193 H 211 H (70-105) mg/dL Calcium (8.4-10.2) mg/dL ALT (7-56) units/L Alkaline Phosphatase (35-129) units/L Total Protein (6.3-8.2) g/dL Albumin (3.9-5) g/dL Arterial Blood Glucose (65-95) mg/dL Arterial Blood Ionized Calcium (4.6-5.3) mg/dL
[2020-12-03] MEDS ORDERED: FUROSEMIDE 20 MG/2 ML INJ IV ONE (13:00)
[2020-12-03] MEDS: SENNOSIDES/DOCUSATE SODIUM 8.6/50 MG TAB PO SCH ×2 (13:12→21:07)
[2020-12-03] MEDS: methylPREDNISolone Sod Succinate 40 MG/1 ML INJ IV SCH ×2 (13:49→21:07)
[2020-12-03] MEDS: ENOXAPARIN 80 MG/0.8 ML INJ SUB-Q SCH (19:42)
[2020-12-03] MEDS: MIDAZOLAM 2 MG/2 ML INJ IV PRN (20:13)
--- NOTE | 2020-12-03 20:27 | Progress Note ---
Assessment and Plan Assessment and plan: 59-year-old female presents with shortness of breath cough fever weakness. "1 to 2 days. Patient has severe hypoxia per EMS. Her saturations are in the low 80s. With all oxygen and nonrebreather came down to low 90s. Patient denies any past medical history. Exposure to coronavirus present. Does not have a primary care physician. 2/1: Patient continues on BiPAP throughout the night. Labs are remarkable for hypoxia with improving renal function but lactic acidosis without fever. CTA has been ordered to rule out pulmonary embolism. I agree with increasing enoxaparin to twice daily full dose for empiric treatment of pulmonary embolism. Will obtain ID consultation on further evaluation for possible underlying pneumonia versus COVID-19. We will also obtain echocardiogram for evaluation. Will discontinue fluids at this time. 2/2; Continue supportive care, Patient remains with very guarded prognosis, remains on BiPAP, continues on Remdesivir, and steroids. Will continue antico agulation, unable to get CTA Chest due to patients unstable clinical status. Will adjust insulin for better blood glucose 2/3: Continues on BIPAP, no clear improvement at this time. Will continue richelle roids therapy Remdesivir and also Full anticoagulation at this time. Will update family. Discussed with Derrick Helper. 2/4: Taking a break from the BiPAP on high flow and nonrebreather 100% with saturation of 90% becomes hypoxic with any movement. Derrick Helper input noted will get a dose of Lasix today. Will await a discussion with ID for possibly increasing steroid. I updated Patient's Cousin, Tayla Esquivel who is the emergency art objects salesperson. Blood sugar remains fluctuating secondary to steriods, Encouraged Prone positioning. Noted with mild hyponatremia we will continue to monitor and manage 2/5: Continue supportive care wean oxygen as tolerated prognosis remains guarded. Encouraged to progress as tolerated. Awaiting labs today. Discussed with nursing staff and patient at bedside. 2/6: Discontinued Dexamethasone as Solumedrol started secondary to increased oxygen demand. Will give additional insulin for better control. Continue oxygen support patient still on high flow. Prognosis still guarded 2/7: Patient was intubated and placed on mechanical ventilation. Continue current medication. Will check a.m. labs today. Noted still with hypotension. Doubt septic shock at this time as patient has no new fever. Will adjust insulin for better blood sugar control. 11/23: Patient admitted with COVID-19 despite all efforts patient remains severely hypoxic and now is intubated. Derrick Helper input noted. Blood pressure marginal at this time. Very poor prognosis. Continue Solu-Medrol. 11/24. Patient remains very hypoxic. Blood pressure borderline. Plan for initiation of paralytic agents as per tower dragline operator. Patient may need to be transferred if no improvement. 11/26. Off paralytics. Remains intubated. On steroids. Prognosis is poor. 11/27. Chest xray shows pneumomediastinum and subcutaneous emphysema. Surgery consulted. Plan for chest tube placement. Sputum culture grew MRSA. Patient started on vancomycin per ID. 11/28. Right chest tube placed yesterday by surgery. Repeat chest x-ray showed left small pneumothorax. Plan for chest tube placement on the left today. Remains on paralytic agents. 11/29. Remains intubated on vent. Had left chest tube placed yesterday. Vitals reviewed. Critical care following 11/30/ Remains on mechanical ventilation. Worsening hypoxia. Bilateral chest tubes in place. Vitals reviewed. Labs reviewed 12/01: Chest tube and mechanical ventilation remains in place, poor prognosis, FIO2 remains at 90%, adjust insulin for better blood glucose control 12/02: Patient remains on full ventilatory support and steroids, still with worsening leukocytosis ?inflammatory or infectious vs steroids. Continue vancomycin. 12/03; slowly weaning, Newer==acute reports of zoo Problems --Acute respiratory failure with hypoxia 11/17 COVID 19 pneumonia Patient remains fully dependent on mechanical ventilatory support Derrick Helper on board On solumedrol 60 q 6 ID on board Prognosis is poor --Pneumomediastinum, subcutaneous emphysema, small left-sided pneumothorax Right and Left chest tube in place Surgery following --Diabetes Mellitus Continue to adjust Insulin dosage Monitor blood glucose closely --- Covid pneumonia Management as above ---MRSA pneumonia Vancomycin ID on board The high probability of a clinically significant, sudden or life threatening deterioration of the [pulmonary] system(s) required my full and direct attention, intervention and personal management. The aggregate critical care time was [35] minutes. This time is in addition to time spent performing reported procedures but includes the following: [X] Data Review and interpretation [X] Patient assessment and monitoring of vital signs [X] Documentation [X] Medication orders and management History Interval history: Patient remains intubated, sedated, and with bilateral chest tubes. No adverse event reported to me overnight from nursing staff Hospitalist Physical - Physical exam Narrative exam: VITAL SIGNS: Reviewed. GENERAL: The patient appears normally developed, sedated HEAD: No signs of head trauma. EYES: Pupils are equal. EARS: Unable to examine MOUTH: Oropharynx with ET tube in place NECK: No adenopathy, no JVD. CHEST: Chest with diminished breath sounds bilaterally. No wheezes, rales, or rhonchi. CARDIAC: Regular rate and rhythm. S1 and S2, without murmurs, gallops, or rubs. VASCULAR: No Edema. Peripheral pulses normal and equal in all extremities. ABDOMEN: Soft, non tender and non distended. No rebound or guarding, and no masses palpated. Bowel Sounds normal. MUSCULOSKELETAL: Good range of motion of all major joints. Extremities without clubbing, cyanosis or edema. NEUROLOGIC EXAM: Sedated no focal sensory or strength deficits. PSYCHIATRIC: Sedated SKIN: detail exam as documented in skin assessment - Constitutional Vitals: Temp Pulse Resp BP Pulse Ox 99.6 F 107 H 24 178/102 93 12/03/20 19:43 12/03/20 18:15 12/03/20 18:15 12/03/20 18:15 12/03/20 18:15 General appearance: Present: mild distress, well-nourished HEART Score - HEART Score Troponin: Troponin T < 0.010 ng/mL (0.00-0.029) 11/22/20 Unknown Results - Labs CBC & Chem 7: 12/03/20 04:35 12/03/20 04:35 Labs: Laboratory Last Values WBC 9.8 K/mm3 (4.5-11.0) 12/03/20 04:35 RBC 4.64 M/mm3 (3.65-5.03) 12/03/20 04:35 Hgb 14.0 gm/dl (11.8-15.2) D 12/03/20 04:35 Hct 42.3 % (35.5-45.6) D 12/03/20 04:35 MCV 91 fl (84-94) 12/03/20 04:35 MCH 30 pg (28-32) 12/03/20 04:35 MCHC 33 % (32-34) 12/03/20 04:35 RDW 13.8 % (13.2-15.2) 12/03/20 04:35 Plt Count 112 K/mm3 (140-440) L 12/03/20 04:35 Lymph % (Auto) 2.0 % (13.4-35.0) L 11/27/20 06:25 Morrow % (Auto) 5.2 % (0.0-7.3) 11/27/20 06:25 Eos % (Auto) 0.0 % (0.0-4.3) 11/27/20 06:25 Baso % (Auto) 0.1 % (0.0-1.8) 11/27/20 06:25 Lymph # (Auto) 0.3 K/mm3 (1.2-5.4) L 11/27/20 06:25 Morrow # (Auto) 0.7 K/mm3 (0.0-0.8) 11/27/20 06:25 Eos # (Auto) 0.0 K/mm3 (0.0-0.4) 11/27/20 06:25 Baso # (Auto) 0.0 K/mm3 (0.0-0.1) 11/27/20 06:25 Add Manual Diff Complete 12/03/20 04:35 Total Counted 100 12/03/20 04:35 Seg Neutrophils % Fur Blender 12/03/20 04:35 Seg Neuts % (Manual) 93.0 % (40.0-70.0) H 12/03/20 04:35 Band Neutrophils % 2.0 % 12/02/20 02:14 Lymphocytes % (Manual) 4.0 % (13.4-35.0) L 12/03/20 04:35 Monocytes % (Manual) 3.0 % (0.0-7.3) 12/03/20 04:35 Nucleated RBC % Not Reportable 12/03/20 04:35 Seg Neutrophils # 12.7 K/mm3 (1.8-7.7) H 11/27/20 06:25 Seg Neutrophils # Man 9.1 K/mm3 (1.8-7.7) H 12/03/20 04:35 Band Neutrophils # 0.0 K/mm3 12/03/20 04:35 Lymphocytes # (Manual) 0.4 K/mm3 (1.2-5.4) L 12/03/20 04:35 Abs React Lymphs (Man) 0.0 K/mm3 12/03/20 04:35 Monocytes # (Manual) 0.3 K/mm3 (0.0-0.8) 12/03/20 04:35 Eosinophils # (Manual) 0.0 K/mm3 (0.0-0.4) 12/03/20 04:35 Basophils # (Manual) 0.0 K/mm3 (0.0-0.1) 12/03/20 04:35 Metamyelocytes # 0.0 K/mm3 12/03/20 04:35 Myelocytes # 0.0 K/mm3 12/03/20 04:35 Promyelocytes # 0.0 K/mm3 12/03/20 04:35 Blast Cells # 0.0 K/mm3 12/03/20 04:35 WBC Morphology Not Reportable 12/03/20 04:35 Hypersegmented Neuts Not Reportable 12/03/20 04:35 Hyposegmented Neuts Not Reportable 12/03/20 04:35 Hypogranular Neuts Not Reportable 12/03/20 04:35 Smudge Cells Not Reportable 12/03/20 04:35 Toxic Granulation Not Reportable 12/03/20 04:35 Toxic Vacuolation Not Reportable 12/03/20 04:35 Dohle Bodies Not Reportable 12/03/20 04:35 Pelger-Huet Anomaly Not Reportable 12/03/20 04:35 Tony Rods Not Reportable 12/03/20 04:35 Platelet Estimate Consistent w auto 12/03/20 04:35 Clumped Platelets Not Reportable 12/03/20 04:35 Plt Clumps, EDTA Not Reportable 12/03/20 04:35 Large Platelets Not Reportable 12/03/20 04:35 Giant Platelets Not Reportable 12/03/20 04:35 Platelet Satelliting Not Reportable 12/03/20 04:35 Plt Morphology Comment Not Reportable 12/03/20 04:35 RBC Morphology Not Reportable 12/03/20 04:35 Dimorphic RBCs Not Reportable 12/03/20 04:35 Polychromasia Not Reportable 12/03/20 04:35 Hypochromasia Not Reportable 12/03/20 04:35 Poikilocytosis Not Reportable 12/03/20 04:35 Anisocytosis Not Reportable 12/03/20 04:35 Microcytosis Not Reportable 12/03/20 04:35 Macrocytosis Not Reportable 12/03/20 04:35 Spherocytes Not Reportable 12/03/20 04:35 Pappenheimer Bodies Not Reportable 12/03/20 04:35 Sickle Cells Not Reportable 12/03/20 04:35 Target Cells Not Reportable 12/03/20 04:35 Tear Drop Cells Not Reportable 12/03/20 04:35 Ovalocytes Not Reportable 12/03/20 04:35 Stomatocytes 1+ 12/03/20 04:35 Helmet Cells Not Reportable 12/03/20 04:35 Cabrera-Dish Bodies Not Reportable 12/03/20 04:35 Boyle Rings Not Reportable 12/03/20 04:35 Henrry Cells Not Reportable 12/03/20 04:35 Bite Cells Not Reportable 12/03/20 04:35 Crenated Cell Not Reportable 12/03/20 04:35 Elliptocytes Not Reportable 12/03/20 04:35 Acanthocytes (Spur) Not Reportable 12/03/20 04:35 Rouleaux Not Reportable 12/03/20 04:35 Hemoglobin C Crystals Not Reportable 12/03/20 04:35 Schistocytes Not Reportable 12/03/20 04:35 Malaria parasites Not Reportable 12/03/20 04:35 Yovani Bodies Not Reportable 12/03/20 04:35 Hem Pathologist Commnt No 12/03/20 04:35 D-Dimer 926.11 ng/mlDDU (0-234) H 11/26/20 06:04 ABG pH 7.299 (7.320-7.450) L 12/03/20 03:21 POC ABG pCO2 82.1 mmHg (32.0-48.0) H 12/03/20 03:21 POC ABG pO2 62.4 mmHg (83-108) L 12/03/20 03:21 POC ABG HCO3 39.4 12/03/20 03:21 POC ABG Base Excess 10.2 12/03/20 03:21 ABG Hemoglobin 11.5 (12.0-17.5) L 12/03/20 03:21 ABG Oxyhemoglobin 89.6 (94-98) L 12/03/20 03:21 ABG Methemoglobin 0.3 (0.0-1.5) 12/03/20 03:21 ABG Sodium 134.3 mmol/L (136.0-145.0) L 12/03/20 03:21 ABG Potassium 4.5 mmol/L (3.40-4.50) 12/03/20 03:21 ABG Chloride 95.0 mmol/L (98-107) L 12/03/20 03:21 ABG Glucose 203 mg/dL (65-95) H 12/03/20 03:21 Carboxyhemoglobin 0.9 (0.5-1.5) 12/03/20 03:21 FiO2 80 12/03/20 03:21 Sodium 140 mmol/L (137-145) 12/03/20 04:35 Potassium 4.8 mmol/L (3.6-5.0) 12/03/20 04:35 Chloride 97.8 mmol/L (98-107) L 12/03/20 04:35 Carbon Dioxide 43 mmol/L (22-30) H* 12/03/20 04:35 Anion Gap 4 mmol/L 12/03/20 04:35 BUN 25 mg/dL (9-20) H 12/03/20 04:35 Creatinine 0.3 mg/dL (0.8-1.3) L 12/03/20 04:35 Estimated GFR > 60 ml/min 12/03/20 04:35 BUN/Creatinine Ratio 83 % 12/03/20 04:35 Glucose 214 mg/dL (75-100) H 12/03/20 04:35 POC Glucose 231 mg/dL (70-105) H 12/03/20 17:45 Hemoglobin A1c 11.7 % (4-6) H 11/16/20 05:29 Lactic Acid 2.60 mmol/L (0.7-2.0) H* 11/16/20 05:29 Calcium 7.7 mg/dL (8.4-10.2) L 12/03/20 04:35 Ferritin 778.8 ng/mL (30.0-300.0) H 11/26/20 04:00 Total Bilirubin 0.30 mg/dL (0.1-1.2) 12/03/20 04:35 AST 37 units/L (5-40) 12/03/20 04:35 ALT 63 units/L (7-56) H 12/03/20 04:35 Alkaline Phosphatase 132 units/L (35-129) H 12/03/20 04:35 Lactate Dehydrogenase 288 units/L (91-180) H 11/26/20 04:00 Troponin T < 0.010 ng/mL (0.00-0.029) 11/22/20 Unknown C-Reactive Protein 1.40 mg/dL (0.00-1.30) H 11/26/20 04:00 NT-Pro-B Natriuret Pep 107.2 pg/mL (0-900) 11/17/20 10:21 Total Protein 5.1 g/dL (6.3-8.2) L 12/03/20 04:35 Albumin 2.4 g/dL (3.9-5) L 12/03/20 04:35 Albumin/Globulin Ratio 0.9 % 12/03/20 04:35 Triglycerides 124 mg/dL (2-149) 11/30/20 03:35 Procalcitonin 0.51 ng/mL (<0.15) 11/15/20 10:39 Arterial Blood Glucose 203 mg/dL (65-95) H 12/03/20 03:21 Arterial Blood Ionized Calcium 4.5 mg/dL (4.6-5.3) L 12/03/20 03:21 Urine Color Faustina (Yellow) 11/16/20 01:45 Urine Turbidity Slightly-cloudy (Clear) 11/16/20 01:45 Urine pH 6.0 (5.0-7.0) 11/16/20 01:45 Ur Specific Mackay 1.037 (1.003-1.030) H 11/16/20 01:45 Urine Protein 30 mg/dl mg/dL (Negative) 11/16/20 01:45 Urine Glucose (UA) >=500 mg/dL (Negative) 11/16/20 01:45 Urine Ketones 20 mg/dL (Negative) 11/16/20 01:45 Urine Blood Neg (Negative) 11/16/20 01:45 Urine Nitrite Neg (Negative) 11/16/20 01:45 Urine Bilirubin Neg (Negative) 11/16/20 01:45 Urine Urobilinogen 2.0 mg/dL (<2.0) 11/16/20 01:45 Ur Leukocyte Esterase Neg (Negative) 11/16/20 01:45 Urine WBC (Auto) 2.0 /HPF (0.0-6.0) 11/16/20 01:45 Urine RBC (Auto) 1.0 /HPF (0.0-6.0) 11/16/20 01:45 Urine Bacteria (Auto) 1+ /HPF (Negative) 11/16/20 01:45 Urine Mucus 3+ /HPF 11/16/20 01:45 Vancomycin Trough 4.0 ug/mL (5.0-20.0) L 11/29/20 15:40 Coronavirus (PCR) Positive (Negative) A 11/16/20 Unknown - Diagnostic Impressions Diagnostic Impressions: Echocardiogram 11/16/20 10:34 Transthoracic Echocardiogram Indication: Shortness of breath-COVID BP: 108/77 HR: 92 Conclusions *Global left ventricular systolic function is normal. *The estimated ejection fraction is 60-65%. *Mild to moderate concentric left ventricular hypertrophy is observed. *There is trace of mitral regurgitation. *There is mild to moderate tricuspid regurgitation. *There is evidence of mild pulmonary hypertension. *The right ventricular systolic pressure is calculated at 31 mmHg. Findings Left Ventricle: The left ventricular chamber size is normal. Mild to moderate concentric left ventricular hypertrophy is observed. Global left ventricular systolic function is normal. The estimated ejection fraction is 60-65%. Left Atrium: The left atrial chamber size is normal. Right Ventricle: The right ventricular cavity size is normal. The right ventricular global systolic function is normal. Right Atrium: The right atrial cavity size is normal. Aortic Valve: The aortic valve is trileaflet. There is no evidence of aortic regurgitation. There is no evidence of aortic stenosis. Mitral Valve: The mitral valve leaflets appear normal. There is trace of mitral regurgitation. There is no evidence of mitral stenosis. Tricuspid Valve: The tricuspid valve leaflets are normal. There is mild to moderate tricuspid regurgitation. The right ventricular systolic pressure is calculated at 31 mmHg. There is evidence of mild pulmonary hypertension. Pulmonic Valve: There is trace pulmonic regurgitation. Pericardium: There is no pericardial effusion. Aorta: There is no dilatation of the ascending aorta. There is no dilatation of the aortic root. Venous: The inferior vena cava appears normal in size. Measurements Chambers 2D Name Value Normal Range IVSd (2D) 0.81 cm (0.6 - 1.1) LVPWd (2D) 0.79 cm (0.6 - 1.1) LVIDd (2D) 4.22 cm (3.7 - 5.6) LVIDs (2D) 3.1 cm (2 - 3.8) LV FS (2D) 26.71 % - EF Teichholz (2D) 52.55 % - Ao root diameter (2D) 3.34 cm (2 - 3.7) Volumes/Mass Name Value Normal Range LA ESV SP 4CH (A/L) 10.87 ml - LA ESV SP 2CH (A/L) 18.74 ml - LA ESV BP (A/L) 16.38 ml - LA ESV BP (A/L) index 8.62 ml/m2 - LA ESV SP 4CH (MOD) 10.32 ml - LA ESV SP 2CH (MOD) 17.66 ml - LA ESV BP (MOD) 15.12 ml - LA ESV BP (MOD) index 7.96 ml/m2 - Diastolic/Systolic Function Name Value Normal Range MV E-wave Vmax 0.76 m/sec - MV deceleration time 133.63 msec - MV A-wave Vmax 1.1 m/sec - MV E:A ratio 0.69 ratio - Aortic Valve Name Value Normal Range AV Vmax 1.44 m/sec - AV VTI 22.94 cm - AV peak gradient 8.33 mmHg - AV mean gradient 4.73 mmHg - LVOT diameter 2.2 cm - LVOT Vmax 1.04 m/sec - LVOT VTI 18.88 cm - LVOT peak gradient 4.34 mmHg - LVOT mean gradient 2.31 mmHg - SV LVOT 72.05 ml - EVANGELISTA (continuity Vmax) 2.75 cm2 - EVANGELISTA (continuity VTI) 3.14 cm2 - Tricuspid Valve Name Value Normal Range TR Vmax 2.64 m/sec - TR peak gradient 28 mmHg - RAP 3 mmHg - RVSP 31 mmHg - Gupta/IV: Voiding Method Indwelling Catheter IV Catheter Type [Left Peripheral IV Antecubital] Active Medications - Current Medications Current Medications: Generic Name Dose Route Start Last Admin Trade Name Freq PRN Reason Stop Dose Admin Acetaminophen 650 mg 11/15/20 23:55 11/18/20 22:19 Acetaminophen 325 Mg Tab PO 650 mg Q4H PRN Administration Pain MILD(1-3)/Fever >100.5/BUTTS Lipase/Protease/Amylase 1 each 11/23/20 11:53 Lipase 10,500/Protease 25,000/Amylase 43,750 (Units) Dr Cap FEEDTUBE PRN PRN For Clogged Feeding Tube Enoxaparin Sodium 40 mg 12/03/20 22:00 Enoxaparin 40 Mg/0.4 Ml Inj SUB-Q QDAY@2200 RAEANN Famotidine 20 mg 11/22/20 22:00 12/03/20 09:15 Famotidine 20 Mg/2 Ml Inj IV 20 mg BID RAEANN Administration Fentanyl 50 mcg 11/21/20 21:53 Fentanyl 100 Mcg/2 Ml Inj IV Q10MIN PRN ANALGESIA Hydrophilic Ointment 1 applic 11/21/20 21:53 11/30/20 21:33 Lip Therapy Vaseline TP 1 applic Q2HR PRN Administration Dry Lips Fentanyl Citrate 2,000 mcg in 100 mls @ 3.625 mls/hr 11/21/20 22:00 12/03/20 20:14 Fentanyl Drip Premix IV 4 mcg/kg/hr TITR RAEANN 14.5 mls/hr Administration Protocol 1 MCG/KG/HR Midazolam HCl 100 mg/ Sodium 100 mls @ 2 mls/hr 11/21/20 22:00 12/03/20 00:26 Chloride IV 5 mg/hr TITR RAEANN 5 mls/hr Administration Protocol 2 MG/HR Norepinephrine 4 mg in 250 mls @ 7.5 mls/hr 11/22/20 17:00 Levophed Drip 4 Mg/Ns 250 Ml IV TITR RAEANN Protocol 2 MCG/MIN Propofol 1,000 mg in 100 mls @ 2.175 mls/hr 11/27/20 12:00 12/03/20 20:14 Diprivan 10 Mg/Ml IV 15 mcg/kg/min TITR RAEANN 6.525 mls/hr Administration Protocol 5 MCG/KG/MIN Insulin Glargine 30 units 12/02/20 09:00 12/03/20 07:50 Insulin Glargine 100 Units/Ml SUB-Q 30 units 0800,2200 RAEANN Administration Insulin Human Lispro 0 unit 11/22/20 06:00 12/03/20 18:24 Insulin Lispro 100 Unit/Ml SUB-Q 4 unit Q6HR RAEANN Administration Protocol Methylprednisolone Sodium Succinate 40 mg 12/03/20 14:00 12/03/20 13:49 Methylprednisolone Sod Succinate 40 Mg/1 Ml Inj IV 40 mg Q8HR RAEANN Administration Metoclopramide HCl 10 mg 11/15/20 23:55 Metoclopramide 10 Mg/2 Ml Inj IV Q6H PRN Nausea And Vomiting Midazolam HCl 2 mg 11/21/20 21:53 12/03/20 20:13 Midazolam 2 Mg/2 Ml Inj IV 2 mg Q10MIN PRN Administration Sedation Multi-Ingred Cream/Lotion/Oil/Oint 1 applic 11/21/20 21:53 Mineral Oil/Petrolatum, White Ophth Oint 3.5 Gm OU Q4HR PRN Dry Eye(s) Ondansetron HCl 4 mg 11/15/20 23:55 Ondansetron 4 Mg/2 Ml Inj IV Q8H PRN Nausea And Vomiting Senna/Docusate Sodium 2 tab 12/03/20 13:00 12/03/20 13:12 Sennosides/Docusate Sodium 8.6/50 Mg Tab PO 2 tab BID RAEANN Administration Simple Syrup 15 ml 11/23/20 11:53 Simple Syrup 15 Ml FEEDTUBE PRN PRN Hypoglycemia Simple Syrup 30 ml 11/23/20 11:53 Simple Syrup 15 Ml FEEDTUBE PRN PRN Hypoglycemia Sodium Bicarbonate 325 mg 11/23/20 11:53 Sodium Bicarbonate 325 Mg Tab FEEDTUBE PRN PRN For Clogged Feeding Tube Sodium Chloride 10 ml 11/16/20 10:00 12/03/20 09:15 Sodium Chloride 0.9% 10 Ml Flush Syringe IV 10 ml BID RAEANN Administration Sodium Chloride 10 ml 11/15/20 23:55 12/03/20 00:21 Sodium Chloride 0.9% 10 Ml Flush Syringe IV 10 ml PRN PRN Administration LINE FLUSH Nutrition/Malnutrition Assess - Dietary Evaluation Nutrition/Malnutrition Findings: Nutrition Notes Start: 11/20/20 12:03 Freq: Status: Active Protocol: Document 12/03/20 12:41 AL (Rec: 12/03/20 13:01 AL [id number]) Co-Sign 12/03/20 12:41 MK Nutrition Notes Initial or Follow up Reassessment Current Diagnosis Diabetes,Sepsis,Respiratory Failure Other Pertinent Diagnosis Bilat pneu, COVID-19 (+) Current Diet Glucerna at 60 ml/hr Labs/Tests POC BG 211 BUN 25 Cr .3 Pertinent Medications Solumedrol Propofol 8.7 ml/hr Humalog Lantus Height 5 ft 6 in Weight 83.5 kg Usual Body Weight 80.5 kg [place] Body Weight (kg) 64.54 BMI 29.7 Weight Status Overweight Subjective/Other Information F/U for TF tolerance. Pt tolerating Glucerna at 60 ml/ hr. Pt w/o BM since 11/21. MD to start bowel regimen Percent of energy/protein needs met: 100%/100% Burn Absent Trauma Absent GI Symptoms Last BM Difficulty In Swallowing,Chewing Food Allergy No Current % PO Negligible Minimum of two criteria Yes Energy Intake (severe) < or equal to 50% Estimated Energy Requirement > or equal to 5 days Interpretation of Weight Loss (severe) >2% in 1 week Fluid Accumulation Moderate to Severe (severe) #3 Nutrition Diagnosis Inadequate oral intake Diagnosis Progress(for reassessment Continues documentation) #2 Nutrition Diagnosis Malnutrition Diagnosis Progress(for reassessment Continues documentation) #1 Nutrition Diagnosis Unintended weight loss Diagnosis Progress(for reassessment Continues documentation) Is patient on ventilator? Yes Is Patient Ambulatory and/or Out of Bed No REE-([facility]-confined to bed) 1921.872 Kcal/Kg value to use for calculation 21 Approximate Energy Requirements Using 1754 kcal/Kg Calculation Used for Recommendations Kcal/kg Additional Notes Protein: 87-145 g/day (1.2-2g/ kg) Fluid: 1ml/kcal or per MD Nutrition Intervention Change Diet Order: Continue TF Nutrition Support: Glucerna 1.2 at 60 ml/hr. Flush 100 ml q4h Kcal 1,728 Protein (gm) 86 Fluid (mL) 1,159 Goal #1 TF tolerance Goal #2 Meet at least 75% of energy and protein needs via TF Anticipated Discharge Needs: Unknown at this time Follow-Up By: 12/09/20 Additional Comments F/U for TF tolerance
[2020-12-03] MEDS: ENOXAPARIN 40 MG/0.4 ML INJ SUB-Q SCH (21:07)
[2020-12-04] MEDS: INSULIN LISPRO 100 UNIT/ML SUB-Q SCH ×7 (01:18→23:56)
[2020-12-04] MEDS: fentaNYL DRIP Premix 2,000 MCG/100 ML BAG IV SCH ×4 (02:26→21:45)
[2020-12-04] MEDS: methylPREDNISolone Sod Succinate 40 MG/1 ML INJ IV SCH ×4 (05:08→21:32)
[2020-12-04] MEDS: INSULIN GLARGINE 100 UNITS/ML SUB-Q SCH ×2 (09:40→21:51)
[2020-12-04 09:55] LABS: Alanine Aminotransferase 78 units/L (7-56); Albumin 2.8 g/dL (3.9-5); Blood Urea Nitrogen 24 mg/dL (9-20); Calcium 7.6 mg/dL (8.4-10.2); Hemolysis Index 2
[2020-12-04 09:59] LABS: BUN/Creatinine Ratio 80
--- NOTE | 2020-12-04 11:17 | Progress Note ---
Assessment and Plan 59 y/o male with acute respiratory failure, abnormal CXR and abnormal lab studies. 12/04/20: Continue to wean steroids to off. Continue to wean FiO2 for sats >88%. Keep PEEP at current level, would not feel comfortable weaning PEEP until FiO2 at 35-40%. Continue chest tubes to suction. PaO2 of >55, pH of >7.2 and sats >88% are acceptable. : Dropped steroids down to 40q8 and will start to wean from there. Continue to slowly wean FiO2 first, keep PEEP at current level. Spoke with Kehinde, please see my event note, who is the biological brother. He had no questions but thanked us for our care. Prognosis remains very very guarded. PaO2 of 55 and pH of >7.2 and sats of >88% are all acceptable. 12/02/20: Wean FiO2 for sats >88% and PaO2 >55. Unable to prone currently secondary to bilateral chest tubes. COntinue high dose steroids. CM To figure out who is the immediate next of kin that can make decisions and then we will discuss the current clinical situation with them. 12/01/20: Continue PEEP and FiO2 elevated to keep sats >88% and PaO2 >55. Small lung volumes and high PEEP. very very guarded prognosis. 11/30/20: Worsening hypoxemia. Chest tubes stable. Likely just worsening disease. Unable to prone now. Increase PEEP to 18 and FiO2 back up to 100. Continue 3 sedatives for RASS of -2. Obtain 12 lead to look at T waves as K was only 4.6 on yesterday. Guarded, guarded prognosis 11/29/20: Second chest tube in on yesterday. CXR is stable. ABG unchanged. Will likely increase PEEP now that chest tubes are in. No further paralytics. Still making good urine. Prognosis remains guarded. Will check chemistry to assess Potassium levels given peaked t's seen on monitor. 11/28/20: Second chest tube today. Once chest tube in, will likely increase PEEP to 18 and repeat gas about 2 hours after this. Continue paralytic today. No proning now that patient will have bilateral chest tubes. VEry guarded prognosis. 11/27/20: Spoke with surgery who have agreed to evaluate and placed chest tube on either right or left side pending CXR reading. Will monitor for 36-48 hours and if no resolution, will need chest tube placed on opposite side as well. Once placed, will likely paralyze again but hold on proning for now. Guarded prognosis. 11/26/20: Paralytics are off. Continue current level of sedation. Will prone for 12 hours today and repeat ABG in the am. Continue lung protective strategy. Guarded prognosis. 11/25/20: Prone again to 16 hours, will prone at 12-12:30. Continue paralytics for 24 more hours. Discussed the idea of permissive hypercapnea again today and as long as pH is above 7.2 no changes should be made to TV and or RR without discussing with physician. Continue to monitor urine output, guarded prognosis. Hold on lasix therapy today. 11/24/20: Prone again today. Will try 48 hours of paralyzing the patient to see if this will help with oxygenation. Will speak with RT's about permissive hypercapnea and that pH's of 7.2 and greater are ok. Continue high doses steroids. Prognosis is still very very guarded. If not improvement with paralytics, will attempt transfer. 11/23/20: Prone again today for 12 hours. Continue High Dose steroids. Hold on lasix given marginal BP's. Prognosis is very very guarded to poor. Will continue all supportive measures. If not able to wean from 100%, will attempt transfer for ECMO. 11/20/20: WIll change to solumedrol 60q6 today. Hold on lasix today. Given his increasing oxygen requirement, will likely end up intubated. OVerall prognosis is very poor. 11/19/20: lasix 40mg IV x1 today. Will speak with ID but may consider increasing steroids to see if this will help with oxygenation. Continue Remdesivir. Prognosis remains guarded. 11/18/20: Continue bipap, goal is to attempt to prevent prolong intubation for as long as possible. Lasix again today. Steroids and Remdesivir. Guarded Prognosis. 11/17/20: Continue bipap therapy. Monitor mental state. High risk for Intubation. Continue BID anticoagulation. Prone if able. BNP was elevated but not grossly elevated. Will still give lasix with hopes of achieving net negative state. STeroids and remdesivir. Overall prognosis is guarded, extremely guarded. 1. Pulm- Agree with concern for covid. Agree with empiric abx but procal is only mildly elevated. Await cultures. Continue bipap therapy for now but will need to monitor closely. [facility] has ordered CTA, but I spoke with pharmacy and we will empirically treat with BID lovenox therapy. COntinue empiric steroid therapy for COVID until studies back. Not sure that he will be able to prone on bipap therapy. Monitor volume status and run as dry as possible. 2. Renal-normal function but all electrolytes abnormal. HYponatremia and Hypochloremia volume up vs volume down. Sent BNP. Would suggest obtaning echo as well. Not sure what to make of elevated lactate unless that is from increased work of breathing or damage to other tissue unknown. May need to check LFT's and Coags as well. 3. Guarded Prognosis. CCT 31 minutes. Subjective Date of service: 12/04/20 Principal diagnosis: COVID-19 Interval history: Oxygenation is slightly better. Remains heavily sedated. Emphysema under skin still present but stable. Chest tubes both to suction. Objective Vital Signs - 12hr 12/03/20 12/03/20 12/04/20 23:30 23:45 00:00 Temperature 98.8 F Pulse Rate 100 H 99 H 99 H Pulse Rate [ 99 H From Monitor] Respiratory 17 24 20 Rate Blood Pressure 117/61 127/63 117/64 O2 Sat by Pulse 98 97 97 Oximetry 12/04/20 12/04/20 12/04/20 00:15 00:26 00:31 Temperature Pulse Rate 93 H 95 H 88 Pulse Rate [ From Monitor] Respiratory 25 H 21 Rate Blood Pressure 112/66 112/66 139/75 O2 Sat by Pulse 97 97 97 Oximetry 12/04/20 12/04/20 12/04/20 00:45 01:00 01:15 Temperature Pulse Rate 101 H 106 H 107 H Pulse Rate [ From Monitor] Respiratory 15 17 17 Rate Blood Pressure 159/88 162/90 165/91 O2 Sat by Pulse 94 94 91 Oximetry 12/04/20 12/04/20 12/04/20 01:30 01:45 02:00 Temperature Pulse Rate 110 H 107 H 111 H Pulse Rate [ From Monitor] Respiratory 24 16 21 Rate Blood Pressure 157/95 153/86 149/94 O2 Sat by Pulse 93 94 95 Oximetry 12/04/20 12/04/20 12/04/20 02:15 02:30 02:45 Temperature Pulse Rate 106 H 109 H 104 H Pulse Rate [ From Monitor] Respiratory 17 20 23 Rate Blood Pressure 150/82 153/81 142/74 O2 Sat by Pulse 94 96 98 Oximetry 12/04/20 12/04/20 12/04/20 03:00 03:15 03:30 Temperature Pulse Rate 106 H 102 H 106 H Pulse Rate [ From Monitor] Respiratory 30 H 16 22 Rate Blood Pressure 137/79 121/66 103/57 O2 Sat by Pulse 98 99 99 Oximetry 12/04/20 12/04/20 12/04/20 03:39 03:45 04:00 Temperature 98.9 F Pulse Rate 104 H 98 H Pulse Rate [ 99 H From Monitor] Respiratory 30 H 28 H Rate Blood Pressure 102/56 103/53 O2 Sat by Pulse 98 97 Oximetry 12/04/20 12/04/20 12/04/20 04:15 04:30 04:45 Temperature Pulse Rate 99 H 104 H 99 H Pulse Rate [ From Monitor] Respiratory 30 H 30 H 30 H Rate Blood Pressure 103/57 104/56 97/56 O2 Sat by Pulse 99 98 99 Oximetry 12/04/20 12/04/20 12/04/20 05:00 05:15 05:30 Temperature Pulse Rate 96 H 99 H 96 H Pulse Rate [ From Monitor] Respiratory 30 H 30 H 30 H Rate Blood Pressure 106/53 104/56 100/55 O2 Sat by Pulse 98 98 99 Oximetry 12/04/20 12/04/20 12/04/20 05:45 06:00 07:00 Temperature Pulse Rate 89 91 H 114 H Pulse Rate [ From Monitor] Respiratory 30 H 30 H 21 Rate Blood Pressure 118/65 138/75 176/104 O2 Sat by Pulse 97 98 89 Oximetry 12/04/20 12/04/20 12/04/20 08:00 09:00 09:39 Temperature 98.6 F Pulse Rate 113 H 122 H 115 H Pulse Rate [ From Monitor] Respiratory 18 21 Rate Blood Pressure 169/98 167/101 161/93 O2 Sat by Pulse 90 92 96 Oximetry 12/04/20 12/04/20 10:00 11:00 Temperature Pulse Rate 104 H 96 H Pulse Rate [ From Monitor] Respiratory 30 H 30 H Rate Blood Pressure 117/62 94/49 O2 Sat by Pulse 97 98 Oximetry Constitutional: alert ENT: other (Now intubated) Ascultation: Bilateral: rales, rhonchi Percussion: Bilateral: not dull Cardiovascular: regular rate and rhythm Gastrointestinal: soft, non-tender CBC and BMP: 12/03/20 04:35 12/04/20 Unknown ABG, PT/INR, D-dimer: ABG ABG pH 7.338 (7.320-7.450) 12/04/20 04:00 POC ABG pCO2 84.4 mmHg (32.0-48.0) H 12/04/20 04:00 POC ABG pO2 68.0 mmHg (83-108) L 12/04/20 04:00 POC ABG HCO3 44.3 12/04/20 04:00 PT/INR, D-dimer D-Dimer 926.11 ng/mlDDU (0-234) H 11/26/20 06:04 Abnormal lab findings: Abnormal Labs 11/15/20 11/15/20 11/15/20 10:39 10:39 10:39 WBC 14.3 H RBC 5.17 H Hgb Hct Plt Count Lymph % (Auto) 7.8 L [place] % (Auto) 7.6 H Lymph # (Auto) 1.1 L [place] # (Auto) 1.1 H Baso # (Auto) Seg Neutrophils % 83.3 H Seg Neuts % (Manual) Lymphocytes % (Manual) Seg Neutrophils # 11.9 H Seg Neutrophils # Man Lymphocytes # (Manual) D-Dimer ABG pH POC ABG pCO2 POC ABG pO2 ABG Hemoglobin ABG Oxyhemoglobin ABG Sodium ABG Potassium ABG Chloride ABG Glucose Sodium 128 L Chloride 96.0 L Carbon Dioxide BUN Creatinine 0.7 L Glucose 238 H POC Glucose Hemoglobin A1c Lactic Acid 4.10 H* Calcium 7.0 L Ferritin Total Bilirubin 1.40 H AST 49 H ALT 70 H Alkaline Phosphatase Lactate Dehydrogenase 663 H C-Reactive Protein 19.80 H Total Protein Albumin 2.9 L Triglycerides Arterial Blood Glucose Arterial Blood Ionized Calcium Ur Specific [place] Vancomycin Trough Coronavirus (PCR) 11/15/20 11/15/20 11/15/20 10:39 10:39 11:20 WBC RBC Hgb Hct Plt Count Lymph % (Auto) [place] % (Auto) Lymph # (Auto) [place] # (Auto) Baso # (Auto) Seg Neutrophils % Seg Neuts % (Manual) Lymphocytes % (Manual) Seg Neutrophils # Seg Neutrophils # Man Lymphocytes # (Manual) D-Dimer > 21616 H ABG pH POC ABG pCO2 29.9 L POC ABG pO2 137.3 H ABG Hemoglobin ABG Oxyhemoglobin ABG Sodium 126.5 L ABG Potassium ABG Chloride ABG Glucose 248 H Sodium Chloride Carbon Dioxide BUN Creatinine Glucose POC Glucose Hemoglobin A1c Lactic Acid Calcium Ferritin 672.8 H Total Bilirubin AST ALT Alkaline Phosphatase Lactate Dehydrogenase C-Reactive Protein Total Protein Albumin Triglycerides Arterial Blood Glucose 248 H Arterial Blood Ionized Calcium 4.1 L Ur Specific [place] Vancomycin Trough Coronavirus (PCR) 11/15/20 11/15/20 11/16/20 13:41 23:41 01:45 WBC RBC Hgb Hct Plt Count Lymph % (Auto) [place] % (Auto) Lymph # (Auto) [place] # (Auto) Baso # (Auto) Seg Neutrophils % Seg Neuts % (Manual) Lymphocytes % (Manual) Seg Neutrophils # Seg Neutrophils # Man Lymphocytes # (Manual) D-Dimer ABG pH POC ABG pCO2 POC ABG pO2 ABG Hemoglobin ABG Oxyhemoglobin ABG Sodium ABG Potassium ABG Chloride ABG Glucose Sodium Chloride Carbon Dioxide BUN Creatinine Glucose POC Glucose 284 H Hemoglobin A1c Lactic Acid 2.30 H* Calcium Ferritin Total Bilirubin AST ALT Alkaline Phosphatase Lactate Dehydrogenase C-Reactive Protein Total Protein Albumin Triglycerides Arterial Blood Glucose Arterial Blood Ionized Calcium Ur Specific [place] 1.037 H Vancomycin Trough Coronavirus (PCR) 11/16/20 11/16/20 11/16/20 05:29 05:29 05:29 WBC 12.9 H RBC Hgb Hct Plt Count Lymph % (Auto) 4.5 L [place] % (Auto) Lymph # (Auto) 0.6 L [place] # (Auto) Baso # (Auto) 0.2 H Seg Neutrophils % 89.8 H Seg Neuts % (Manual) Lymphocytes % (Manual) Seg Neutrophils # 11.5 H Seg Neutrophils # Man Lymphocytes # (Manual) D-Dimer ABG pH POC ABG pCO2 POC ABG pO2 ABG Hemoglobin ABG Oxyhemoglobin ABG Sodium ABG Potassium ABG Chloride ABG Glucose Sodium 131 L Chloride Carbon Dioxide 21 L BUN 23 H Creatinine 0.6 L Glucose 342 H POC Glucose Hemoglobin A1c Lactic Acid 2.60 H* Calcium 7.0 L Ferritin Total Bilirubin AST ALT Alkaline Phosphatase Lactate Dehydrogenase C-Reactive Protein Total Protein Albumin 2.4 L Triglycerides Arterial Blood Glucose Arterial Blood Ionized Calcium Ur Specific [place] Vancomycin Trough Coronavirus (PCR) 11/16/20 11/16/20 11/16/20 05:29 08:11 12:11 WBC RBC Hgb Hct Plt Count Lymph % (Auto) [place] % (Auto) Lymph # (Auto) [place] # (Auto) Baso # (Auto) Seg Neutrophils % Seg Neuts % (Manual) Lymphocytes % (Manual) Seg Neutrophils # Seg Neutrophils # Man Lymphocytes # (Manual) D-Dimer ABG pH POC ABG pCO2 POC ABG pO2 ABG Hemoglobin ABG Oxyhemoglobin ABG Sodium ABG Potassium ABG Chloride ABG Glucose Sodium Chloride Carbon Dioxide BUN Creatinine Glucose POC Glucose 329 H 320 H Hemoglobin A1c 11.7 H Lactic Acid Calcium Ferritin Total Bilirubin AST ALT Alkaline Phosphatase Lactate Dehydrogenase C-Reactive Protein Total Protein Albumin Triglycerides Arterial Blood Glucose Arterial Blood Ionized Calcium Ur Specific [place] Vancomycin Trough Coronavirus (PCR) 11/16/20 11/16/20 11/16/20 16:13 21:29 Unknown WBC RBC Hgb Hct Plt Count Lymph % (Auto) [place] % (Auto) Lymph # (Auto) [place] # (Auto) Baso # (Auto) Seg Neutrophils % Seg Neuts % (Manual) Lymphocytes % (Manual) Seg Neutrophils # Seg Neutrophils # Man Lymphocytes # (Manual) D-Dimer ABG pH POC ABG pCO2 POC ABG pO2 ABG Hemoglobin ABG Oxyhemoglobin ABG Sodium ABG Potassium ABG Chloride ABG Glucose Sodium Chloride Carbon Dioxide BUN Creatinine Glucose POC Glucose 257 H 376 H Hemoglobin A1c Lactic Acid Calcium Ferritin Total Bilirubin AST ALT Alkaline Phosphatase Lactate Dehydrogenase C-Reactive Protein Total Protein Albumin Triglycerides Arterial Blood Glucose Arterial Blood Ionized Calcium Ur Specific [place] Vancomycin Trough Coronavirus (PCR) Positive A 11/17/20 11/17/20 11/17/20 07:42 12:07 17:25 WBC RBC Hgb Hct Plt Count Lymph % (Auto) [place] % (Auto) Lymph # (Auto) [place] # (Auto) Baso # (Auto) Seg Neutrophils % Seg Neuts % (Manual) Lymphocytes % (Manual) Seg Neutrophils # Seg Neutrophils # Man Lymphocytes # (Manual) D-Dimer ABG pH POC ABG pCO2 POC ABG pO2 ABG Hemoglobin ABG Oxyhemoglobin ABG Sodium ABG Potassium ABG Chloride ABG Glucose Sodium Chloride Carbon Dioxide BUN Creatinine Glucose POC Glucose 231 H 380 H 302 H Hemoglobin A1c Lactic Acid Calcium Ferritin Total Bilirubin AST ALT Alkaline Phosphatase Lactate Dehydrogenase C-Reactive Protein Total Protein Albumin Triglycerides Arterial Blood Glucose Arterial Blood Ionized Calcium Ur Specific [place] Vancomycin Trough Coronavirus (PCR) 11/17/20 11/18/20 11/18/20 21:53 04:25 07:45 WBC RBC Hgb Hct Plt Count Lymph % (Auto) [place] % (Auto) Lymph # (Auto) [place] # (Auto) Baso # (Auto) Seg Neutrophils % Seg Neuts % (Manual) Lymphocytes % (Manual) Seg Neutrophils # Seg Neutrophils # Man Lymphocytes # (Manual) D-Dimer ABG pH POC ABG pCO2 POC ABG pO2 ABG Hemoglobin ABG Oxyhemoglobin ABG Sodium ABG Potassium ABG Chloride ABG Glucose Sodium 136 L Chloride Carbon Dioxide BUN 24 H Creatinine 0.6 L Glucose 212 H POC Glucose 293 H 216 H Hemoglobin A1c Lactic Acid Calcium 7.4 L Ferritin Total Bilirubin AST 41 H ALT Alkaline Phosphatase 142 H Lactate Dehydrogenase C-Reactive Protein Total Protein Albumin 2.3 L Triglycerides Arterial Blood Glucose Arterial Blood Ionized Calcium Ur Specific [place] Vancomycin Trough Coronavirus (PCR) 11/18/20 11/18/20 11/18/20 12:28 15:58 21:37 WBC RBC Hgb Hct Plt Count Lymph % (Auto) [place] % (Auto) Lymph # (Auto) [place] # (Auto) Baso # (Auto) Seg Neutrophils % Seg Neuts % (Manual) Lymphocytes % (Manual) Seg Neutrophils # Seg Neutrophils # Man Lymphocytes # (Manual) D-Dimer ABG pH POC ABG pCO2 POC ABG pO2 ABG Hemoglobin ABG Oxyhemoglobin ABG Sodium ABG Potassium ABG Chloride ABG Glucose Sodium Chloride Carbon Dioxide BUN Creatinine Glucose POC Glucose 165 H 220 H 311 H Hemoglobin A1c Lactic Acid Calcium Ferritin Total Bilirubin AST ALT Alkaline Phosphatase Lactate Dehydrogenase C-Reactive Protein Total Protein Albumin Triglycerides Arterial Blood Glucose Arterial Blood Ionized Calcium Ur Specific [place] Vancomycin Trough Coronavirus (PCR) 11/19/20 11/19/20 11/19/20 05:35 07:40 12:39 WBC RBC Hgb Hct Plt Count Lymph % (Auto) [place] % (Auto) Lymph # (Auto) [place] # (Auto) Baso # (Auto) Seg Neutrophils % Seg Neuts % (Manual) Lymphocytes % (Manual) Seg Neutrophils # Seg Neutrophils # Man Lymphocytes # (Manual) D-Dimer ABG pH POC ABG pCO2 POC ABG pO2 ABG Hemoglobin ABG Oxyhemoglobin ABG Sodium ABG Potassium ABG Chloride ABG Glucose Sodium 132 L Chloride Carbon Dioxide BUN 25 H Creatinine 0.5 L Glucose 179 H POC Glucose 149 H 306 H Hemoglobin A1c Lactic Acid Calcium 7.5 L Ferritin Total Bilirubin AST ALT Alkaline Phosphatase 139 H Lactate Dehydrogenase C-Reactive Protein Total Protein Albumin 2.4 L Triglycerides Arterial Blood Glucose Arterial Blood Ionized Calcium Ur Specific [place] Vancomycin Trough Coronavirus (PCR) 11/19/20 11/19/20 11/20/20 16:17 21:25 08:30 WBC RBC Hgb Hct Plt Count Lymph % (Auto) [place] % (Auto) Lymph # (Auto) [place] # (Auto) Baso # (Auto) Seg Neutrophils % Seg Neuts % (Manual) Lymphocytes % (Manual) Seg Neutrophils # Seg Neutrophils # Man Lymphocytes # (Manual) D-Dimer ABG pH POC ABG pCO2 POC ABG pO2 ABG Hemoglobin ABG Oxyhemoglobin ABG Sodium ABG Potassium ABG Chloride ABG Glucose Sodium Chloride Carbon Dioxide BUN Creatinine Glucose POC Glucose 364 H 347 H 141 H Hemoglobin A1c Lactic Acid Calcium Ferritin Total Bilirubin AST ALT Alkaline Phosphatase Lactate Dehydrogenase C-Reactive Protein Total Protein Albumin Triglycerides Arterial Blood Glucose Arterial Blood Ionized Calcium Ur Specific [place] Vancomycin Trough Coronavirus (PCR) 11/20/20 11/20/20 11/20/20 08:50 11:32 16:19 WBC RBC Hgb Hct Plt Count Lymph % (Auto) [place] % (Auto) Lymph # (Auto) [place] # (Auto) Baso # (Auto) Seg Neutrophils % Seg Neuts % (Manual) Lymphocytes % (Manual) Seg Neutrophils # Seg Neutrophils # Man Lymphocytes # (Manual) D-Dimer ABG pH POC ABG pCO2 POC ABG pO2 ABG Hemoglobin ABG Oxyhemoglobin ABG Sodium ABG Potassium ABG Chloride ABG Glucose Sodium 132 L Chloride 97.6 L Carbon Dioxide BUN 26 H Creatinine 0.5 L Glucose 201 H POC Glucose 296 H 327 H Hemoglobin A1c Lactic Acid Calcium 7.9 L Ferritin Total Bilirubin AST ALT Alkaline Phosphatase 137 H Lactate Dehydrogenase C-Reactive Protein Total Protein Albumin 2.6 L Triglycerides Arterial Blood Glucose Arterial Blood Ionized Calcium Ur Specific [place] Vancomycin Trough Coronavirus (PCR) 11/20/20 11/21/20 11/21/20 22:09 07:59 13:51 WBC RBC Hgb Hct Plt Count Lymph % (Auto) [place] % (Auto) Lymph # (Auto) [place] # (Auto) Baso # (Auto) Seg Neutrophils % Seg Neuts % (Manual) Lymphocytes % (Manual) Seg Neutrophils # Seg Neutrophils # Man Lymphocytes # (Manual) D-Dimer ABG pH POC ABG pCO2 POC ABG pO2 ABG Hemoglobin ABG Oxyhemoglobin ABG Sodium ABG Potassium ABG Chloride ABG Glucose Sodium Chloride Carbon Dioxide BUN Creatinine Glucose POC Glucose 311 H 218 H 304 H Hemoglobin A1c Lactic Acid Calcium Ferritin Total Bilirubin AST ALT Alkaline Phosphatase Lactate Dehydrogenase C-Reactive Protein Total Protein Albumin Triglycerides Arterial Blood Glucose Arterial Blood Ionized Calcium Ur Specific [place] Vancomycin Trough Coronavirus (PCR) 11/21/20 11/21/20 11/21/20 16:09 21:34 23:00 WBC RBC Hgb Hct Plt Count Lymph % (Auto) [place] % (Auto) Lymph # (Auto) [place] # (Auto) Baso # (Auto) Seg Neutrophils % Seg Neuts % (Manual) Lymphocytes % (Manual) Seg Neutrophils # Seg Neutrophils # Man Lymphocytes # (Manual) D-Dimer ABG pH 7.206 L POC ABG pCO2 59.3 H POC ABG pO2 76.7 L ABG Hemoglobin ABG Oxyhemoglobin ABG Sodium 133.1 L ABG Potassium ABG Chloride ABG Glucose 320 H Sodium Chloride Carbon Dioxide BUN Creatinine Glucose POC Glucose 239 H 279 H Hemoglobin A1c Lactic Acid Calcium Ferritin Total Bilirubin AST ALT Alkaline Phosphatase Lactate Dehydrogenase C-Reactive Protein Total Protein Albumin Triglycerides Arterial Blood Glucose 320 H Arterial Blood Ionized Calcium Ur Specific [place] Vancomycin Trough Coronavirus (PCR) 11/22/20 11/22/20 11/22/20 04:52 04:52 04:52 WBC RBC Hgb Hct Plt Count Lymph % (Auto) [place] % (Auto) Lymph # (Auto) [place] # (Auto) Baso # (Auto) Seg Neutrophils % Seg Neuts % (Manual) Lymphocytes % (Manual) Seg Neutrophils # Seg Neutrophils # Man Lymphocytes # (Manual) D-Dimer 1858.36 H ABG pH POC ABG pCO2 POC ABG pO2 ABG Hemoglobin ABG Oxyhemoglobin ABG Sodium ABG Potassium ABG Chloride ABG Glucose Sodium Chloride Carbon Dioxide BUN Creatinine Glucose POC Glucose Hemoglobin A1c Lactic Acid Calcium Ferritin 734.2 H Total Bilirubin AST ALT Alkaline Phosphatase Lactate Dehydrogenase 404 H C-Reactive Protein 2.80 H Total Protein Albumin Triglycerides Arterial Blood Glucose Arterial Blood Ionized Calcium Ur Specific [place] Vancomycin Trough Coronavirus (PCR) 11/22/20 11/22/20 11/22/20 05:12 05:39 11:50 WBC RBC Hgb Hct Plt Count Lymph % (Auto) [place] % (Auto) Lymph # (Auto) [place] # (Auto) Baso # (Auto) Seg Neutrophils % Seg Neuts % (Manual) Lymphocytes % (Manual) Seg Neutrophils # Seg Neutrophils # Man Lymphocytes # (Manual) D-Dimer ABG pH POC ABG pCO2 POC ABG pO2 51.0 L ABG Hemoglobin ABG Oxyhemoglobin ABG Sodium 131.2 L ABG Potassium 4.6 H ABG Chloride ABG Glucose 317 H Sodium Chloride Carbon Dioxide BUN Creatinine Glucose POC Glucose 340 H 417 H Hemoglobin A1c Lactic Acid Calcium Ferritin Total Bilirubin AST ALT Alkaline Phosphatase Lactate Dehydrogenase C-Reactive Protein Total Protein Albumin Triglycerides Arterial Blood Glucose 317 H Arterial Blood Ionized Calcium 4.4 L Ur Specific [place] Vancomycin Trough Coronavirus (PCR) 11/22/20 11/22/20 11/22/20 12:22 12:22 17:10 WBC 14.4 H RBC Hgb Hct Plt Count Lymph % (Auto) [place] % (Auto) Lymph # (Auto) [place] # (Auto) Baso # (Auto) Seg Neutrophils % Seg Neuts % (Manual) 98.0 H Lymphocytes % (Manual) Seg Neutrophils # Seg Neutrophils # Man 14.1 H Lymphocytes # (Manual) 0.0 L D-Dimer ABG pH POC ABG pCO2 POC ABG pO2 ABG Hemoglobin ABG Oxyhemoglobin ABG Sodium ABG Potassium ABG Chloride ABG Glucose Sodium 132 L Chloride Carbon Dioxide BUN 36 H Creatinine 0.6 L Glucose 219 H POC Glucose 157 H Hemoglobin A1c Lactic Acid Calcium 7.2 L Ferritin Total Bilirubin AST ALT Alkaline Phosphatase Lactate Dehydrogenase C-Reactive Protein Total Protein Albumin Triglycerides Arterial Blood Glucose Arterial Blood Ionized Calcium Ur Specific [place] Vancomycin Trough Coronavirus (PCR) 11/22/20 11/22/20 11/22/20 18:33 21:44 23:47 WBC RBC Hgb Hct Plt Count Lymph % (Auto) [place] % (Auto) Lymph # (Auto) [place] # (Auto) Baso # (Auto) Seg Neutrophils % Seg Neuts % (Manual) Lymphocytes % (Manual) Seg Neutrophils # Seg Neutrophils # Man Lymphocytes # (Manual) D-Dimer ABG pH POC ABG pCO2 POC ABG pO2 60.8 L ABG Hemoglobin ABG Oxyhemoglobin 88.1 L ABG Sodium 135.1 L ABG Potassium ABG Chloride ABG Glucose 141 H Sodium Chloride Carbon Dioxide BUN Creatinine Glucose POC Glucose 117 H 123 H Hemoglobin A1c Lactic Acid Calcium Ferritin Total Bilirubin AST ALT Alkaline Phosphatase Lactate Dehydrogenase C-Reactive Protein Total Protein Albumin Triglycerides Arterial Blood Glucose 141 H Arterial Blood Ionized Calcium Ur Specific [place] Vancomycin Trough Coronavirus (PCR) 11/23/20 11/23/20 11/23/20 04:00 04:00 05:23 WBC 14.4 H RBC Hgb Hct Plt Count Lymph % (Auto) [place] % (Auto) Lymph # (Auto) [place] # (Auto) Baso # (Auto) Seg Neutrophils % Seg Neuts % (Manual) Lymphocytes % (Manual) Seg Neutrophils # Seg Neutrophils # Man Lymphocytes # (Manual) D-Dimer ABG pH POC ABG pCO2 POC ABG pO2 ABG Hemoglobin ABG Oxyhemoglobin ABG Sodium ABG Potassium ABG Chloride ABG Glucose Sodium 136 L Chloride Carbon Dioxide BUN 33 H Creatinine 0.6 L Glucose 115 H POC Glucose 173 H Hemoglobin A1c Lactic Acid Calcium 7.1 L Ferritin Total Bilirubin AST 64 H ALT 75 H Alkaline Phosphatase Lactate Dehydrogenase C-Reactive Protein Total Protein 5.9 L D Albumin 2.4 L Triglycerides Arterial Blood Glucose Arterial Blood Ionized Calcium Ur Specific [place] Vancomycin Trough Coronavirus (PCR) 11/23/20 11/23/20 11/23/20 05:40 11:27 17:10 WBC RBC Hgb Hct Plt Count Lymph % (Auto) [place] % (Auto) Lymph # (Auto) [place] # (Auto) Baso # (Auto) Seg Neutrophils % Seg Neuts % (Manual) Lymphocytes % (Manual) Seg Neutrophils # Seg Neutrophils # Man Lymphocytes # (Manual) D-Dimer ABG pH POC ABG pCO2 POC ABG pO2 56.5 L ABG Hemoglobin ABG Oxyhemoglobin ABG Sodium ABG Potassium ABG Chloride 109.0 H ABG Glucose 114 H Sodium Chloride Carbon Dioxide BUN Creatinine Glucose POC Glucose 114 H 136 H Hemoglobin A1c Lactic Acid Calcium Ferritin Total Bilirubin AST ALT Alkaline Phosphatase Lactate Dehydrogenase C-Reactive Protein Total Protein Albumin Triglycerides Arterial Blood Glucose 114 H Arterial Blood Ionized Calcium 4.5 L Ur Specific [place] Vancomycin Trough Coronavirus (PCR) 11/24/20 11/24/20 11/24/20 05:14 05:14 05:14 WBC RBC Hgb Hct Plt Count Lymph % (Auto) [place] % (Auto) Lymph # (Auto) [place] # (Auto) Baso # (Auto) Seg Neutrophils % Seg Neuts % (Manual) Lymphocytes % (Manual) Seg Neutrophils # Seg Neutrophils # Man Lymphocytes # (Manual) D-Dimer 1433.39 H ABG pH POC ABG pCO2 POC ABG pO2 ABG Hemoglobin ABG Oxyhemoglobin ABG Sodium ABG Potassium ABG Chloride ABG Glucose Sodium Chloride Carbon Dioxide BUN Creatinine Glucose POC Glucose Hemoglobin A1c Lactic Acid Calcium Ferritin 997.5 H Total Bilirubin AST ALT Alkaline Phosphatase Lactate Dehydrogenase 463 H C-Reactive Protein Total Protein Albumin Triglycerides Arterial Blood Glucose Arterial Blood Ionized Calcium Ur Specific [place] Vancomycin Trough Coronavirus (PCR) 11/24/20 11/24/20 11/24/20 05:31 05:36 12:05 WBC RBC Hgb Hct Plt Count Lymph % (Auto) [place] % (Auto) Lymph # (Auto) [place] # (Auto) Baso # (Auto) Seg Neutrophils % Seg Neuts % (Manual) Lymphocytes % (Manual) Seg Neutrophils # Seg Neutrophils # Man Lymphocytes # (Manual) D-Dimer ABG pH POC ABG pCO2 POC ABG pO2 57.2 L ABG Hemoglobin ABG Oxyhemoglobin ABG Sodium ABG Potassium ABG Chloride ABG Glucose 180 H Sodium Chloride Carbon Dioxide BUN Creatinine Glucose POC Glucose 199 H 143 H Hemoglobin A1c Lactic Acid Calcium Ferritin Total Bilirubin AST ALT Alkaline Phosphatase Lactate Dehydrogenase C-Reactive Protein Total Protein Albumin Triglycerides Arterial Blood Glucose 180 H Arterial Blood Ionized Calcium 4.5 L Ur Specific [place] Vancomycin Trough Coronavirus (PCR) 11/24/20 11/24/20 11/24/20 12:14 17:47 23:47 WBC RBC Hgb Hct Plt Count Lymph % (Auto) [place] % (Auto) Lymph # (Auto) [place] # (Auto) Baso # (Auto) Seg Neutrophils % Seg Neuts % (Manual) Lymphocytes % (Manual) Seg Neutrophils # Seg Neutrophils # Man Lymphocytes # (Manual) D-Dimer ABG pH 7.261 L POC ABG pCO2 59.7 H POC ABG pO2 75.7 L ABG Hemoglobin ABG Oxyhemoglobin 92.5 L ABG Sodium ABG Potassium ABG Chloride 108.0 H ABG Glucose 150 H Sodium Chloride Carbon Dioxide BUN Creatinine Glucose POC Glucose 223 H 179 H Hemoglobin A1c Lactic Acid Calcium Ferritin Total Bilirubin AST ALT Alkaline Phosphatase Lactate Dehydrogenase C-Reactive Protein Total Protein Albumin Triglycerides Arterial Blood Glucose 150 H Arterial Blood Ionized Calcium Ur Specific [place] Vancomycin Trough Coronavirus (PCR) 11/25/20 11/25/20 11/25/20 03:29 05:07 05:15 WBC 13.9 H RBC Hgb Hct Plt Count Lymph % (Auto) [place] % (Auto) Lymph # (Auto) [place] # (Auto) Baso # (Auto) Seg Neutrophils % Seg Neuts % (Manual) 97.0 H Lymphocytes % (Manual) Seg Neutrophils # Seg Neutrophils # Man 13.5 H Lymphocytes # (Manual) 0.0 L D-Dimer ABG pH 7.272 L POC ABG pCO2 69.0 H POC ABG pO2 132.9 H ABG Hemoglobin ABG Oxyhemoglobin ABG Sodium ABG Potassium ABG Chloride ABG Glucose 174 H Sodium Chloride Carbon Dioxide BUN Creatinine Glucose POC Glucose 168 H Hemoglobin A1c Lactic Acid Calcium Ferritin Total Bilirubin AST ALT Alkaline Phosphatase Lactate Dehydrogenase C-Reactive Protein Total Protein Albumin Triglycerides Arterial Blood Glucose 174 H Arterial Blood Ionized Calcium Ur Specific [place] Vancomycin Trough Coronavirus (PCR) 11/25/20 11/25/20 11/25/20 05:15 11:25 17:35 WBC RBC Hgb Hct Plt Count Lymph % (Auto) [place] % (Auto) Lymph # (Auto) [place] # (Auto) Baso # (Auto) Seg Neutrophils % Seg Neuts % (Manual) Lymphocytes % (Manual) Seg Neutrophils # Seg Neutrophils # Man Lymphocytes # (Manual) D-Dimer ABG pH POC ABG pCO2 POC ABG pO2 ABG Hemoglobin ABG Oxyhemoglobin ABG Sodium ABG Potassium ABG Chloride ABG Glucose Sodium Chloride Carbon Dioxide BUN 29 H Creatinine 0.5 L Glucose 161 H POC Glucose 224 H 228 H Hemoglobin A1c Lactic Acid Calcium 7.8 L Ferritin Total Bilirubin AST 89 H ALT 129 H Alkaline Phosphatase Lactate Dehydrogenase C-Reactive Protein Total Protein 5.8 L Albumin 2.5 L Triglycerides Arterial Blood Glucose Arterial Blood Ionized Calcium Ur Specific [place] Vancomycin Trough Coronavirus (PCR) 11/25/20 11/25/20 11/26/20 20:45 23:28 04:00 WBC RBC Hgb Hct Plt Count Lymph % (Auto) [place] % (Auto) Lymph # (Auto) [place] # (Auto) Baso # (Auto) Seg Neutrophils % Seg Neuts % (Manual) Lymphocytes % (Manual) Seg Neutrophils # Seg Neutrophils # Man Lymphocytes # (Manual) D-Dimer ABG pH POC ABG pCO2 POC ABG pO2 ABG Hemoglobin ABG Oxyhemoglobin ABG Sodium ABG Potassium ABG Chloride ABG Glucose Sodium Chloride Carbon Dioxide BUN Creatinine Glucose POC Glucose 177 H 243 H Hemoglobin A1c Lactic Acid Calcium Ferritin 778.8 H Total Bilirubin AST ALT Alkaline Phosphatase Lactate Dehydrogenase C-Reactive Protein Total Protein Albumin Triglycerides Arterial Blood Glucose Arterial Blood Ionized Calcium Ur Specific [place] Vancomycin Trough Coronavirus (PCR) 11/26/20 11/26/20 11/26/20 04:00 05:34 06:04 WBC RBC Hgb Hct Plt Count Lymph % (Auto) [place] % (Auto) Lymph # (Auto) [place] # (Auto) Baso # (Auto) Seg Neutrophils % Seg Neuts % (Manual) Lymphocytes % (Manual) Seg Neutrophils # Seg Neutrophils # Man Lymphocytes # (Manual) D-Dimer 926.11 H ABG pH POC ABG pCO2 POC ABG pO2 ABG Hemoglobin ABG Oxyhemoglobin ABG Sodium ABG Potassium ABG Chloride ABG Glucose Sodium Chloride Carbon Dioxide 39 H D BUN 30 H Creatinine 0.5 L Glucose 193 H POC Glucose 178 H Hemoglobin A1c Lactic Acid Calcium 7.7 L Ferritin Total Bilirubin AST 65 H ALT 132 H Alkaline Phosphatase Lactate Dehydrogenase 288 H C-Reactive Protein 1.40 H Total Protein 5.7 L Albumin 2.4 L Triglycerides Arterial Blood Glucose Arterial Blood Ionized Calcium Ur Specific [place] Vancomycin Trough Coronavirus (PCR) 11/26/20 11/26/20 11/26/20 06:04 08:47 11:20 WBC 12.4 H RBC Hgb Hct Plt Count Lymph % (Auto) [place] % (Auto) Lymph # (Auto) [place] # (Auto) Baso # (Auto) Seg Neutrophils % Seg Neuts % (Manual) 98.0 H Lymphocytes % (Manual) 1.0 L Seg Neutrophils # Seg Neutrophils # Man 12.2 H Lymphocytes # (Manual) 0.1 L D-Dimer ABG pH POC ABG pCO2 75.2 H POC ABG pO2 61.9 L ABG Hemoglobin ABG Oxyhemoglobin 90.3 L ABG Sodium ABG Potassium ABG Chloride ABG Glucose 243 H Sodium Chloride Carbon Dioxide BUN Creatinine Glucose POC Glucose 255 H Hemoglobin A1c Lactic Acid Calcium Ferritin Total Bilirubin AST ALT Alkaline Phosphatase Lactate Dehydrogenase C-Reactive Protein Total Protein Albumin Triglycerides Arterial Blood Glucose 243 H Arterial Blood Ionized Calcium Ur Specific [place] Vancomycin Trough Coronavirus (PCR) 0211/26/20 11/26/20 16:20 17:15 23:41 WBC RBC Hgb Hct Plt Count Lymph % (Auto) [place] % (Auto) Lymph # (Auto) [place] # (Auto) Baso # (Auto) Seg Neutrophils % Seg Neuts % (Manual) Lymphocytes % (Manual) Seg Neutrophils # Seg Neutrophils # Man Lymphocytes # (Manual) D-Dimer ABG pH POC ABG pCO2 66.6 H POC ABG pO2 78.1 L ABG Hemoglobin ABG Oxyhemoglobin ABG Sodium ABG Potassium ABG Chloride ABG Glucose 244 H Sodium Chloride Carbon Dioxide BUN Creatinine Glucose POC Glucose 219 H 210 H Hemoglobin A1c Lactic Acid Calcium Ferritin Total Bilirubin AST ALT Alkaline Phosphatase Lactate Dehydrogenase C-Reactive Protein Total Protein Albumin Triglycerides Arterial Blood Glucose 244 H Arterial Blood Ionized Calcium Ur Specific [place] Vancomycin Trough Coronavirus (PCR) 11/27/20 11/27/20 11/27/20 04:46 05:38 06:25 WBC 13.8 H RBC Hgb Hct Plt Count Lymph % (Auto) 2.0 L [place] % (Auto) Lymph # (Auto) 0.3 L [place] # (Auto) Baso # (Auto) Seg Neutrophils % Seg Neuts % (Manual) 96.0 H Lymphocytes % (Manual) Seg Neutrophils # 12.7 H Seg Neutrophils # Man 13.2 H Lymphocytes # (Manual) 0.0 L D-Dimer ABG pH POC ABG pCO2 63.0 H POC ABG pO2 53.6 L ABG Hemoglobin ABG Oxyhemoglobin 87.8 L ABG Sodium 115.4 L ABG Potassium ABG Chloride ABG Glucose 219 H Sodium Chloride Carbon Dioxide BUN Creatinine Glucose POC Glucose 227 H Hemoglobin A1c Lactic Acid Calcium Ferritin Total Bilirubin AST ALT Alkaline Phosphatase Lactate Dehydrogenase C-Reactive Protein Total Protein Albumin Triglycerides Arterial Blood Glucose 219 H Arterial Blood Ionized Calcium Ur Specific [place] Vancomycin Trough Coronavirus (PCR) 11/27/20 11/27/20 11/27/20 06:25 18:05 23:29 WBC RBC Hgb Hct Plt Count Lymph % (Auto) [place] % (Auto) Lymph # (Auto) [place] # (Auto) Baso # (Auto) Seg Neutrophils % Seg Neuts % (Manual) Lymphocytes % (Manual) Seg Neutrophils # Seg Neutrophils # Man Lymphocytes # (Manual) D-Dimer ABG pH POC ABG pCO2 POC ABG pO2 ABG Hemoglobin ABG Oxyhemoglobin ABG Sodium ABG Potassium ABG Chloride ABG Glucose Sodium Chloride Carbon Dioxide 38 H BUN 34 H Creatinine 0.4 L Glucose 243 H POC Glucose 329 H 227 H Hemoglobin A1c Lactic Acid Calcium 7.9 L Ferritin Total Bilirubin AST 50 H ALT 110 H Alkaline Phosphatase Lactate Dehydrogenase C-Reactive Protein Total Protein 6.1 L Albumin 2.4 L Triglycerides Arterial Blood Glucose Arterial Blood Ionized Calcium Ur Specific [place] Vancomycin Trough Coronavirus (PCR) 11/28/20 11/28/20 11/28/20 03:45 03:45 03:46 WBC 12.2 H RBC Hgb Hct Plt Count Lymph % (Auto) [place] % (Auto) Lymph # (Auto) [place] # (Auto) Baso # (Auto) Seg Neutrophils % Seg Neuts % (Manual) 93.0 H Lymphocytes % (Manual) 2.0 L Seg Neutrophils # Seg Neutrophils # Man 11.3 H Lymphocytes # (Manual) 0.2 L D-Dimer ABG pH POC ABG pCO2 68.4 H POC ABG pO2 55.4 L ABG Hemoglobin ABG Oxyhemoglobin ABG Sodium ABG Potassium ABG Chloride ABG Glucose 197 H Sodium Chloride Carbon Dioxide 36 H BUN 37 H Creatinine 0.4 L Glucose 194 H POC Glucose Hemoglobin A1c Lactic Acid Calcium 8.1 L Ferritin Total Bilirubin AST ALT 86 H Alkaline Phosphatase Lactate Dehydrogenase C-Reactive Protein Total Protein 6.0 L Albumin 2.3 L Triglycerides Arterial Blood Glucose 197 H Arterial Blood Ionized Calcium Ur Specific [place] Vancomycin Trough Coronavirus (PCR) 11/28/20 11/28/20 11/29/20 05:24 12:21 04:41 WBC RBC Hgb Hct Plt Count Lymph % (Auto) [place] % (Auto) Lymph # (Auto) [place] # (Auto) Baso # (Auto) Seg Neutrophils % Seg Neuts % (Manual) Lymphocytes % (Manual) Seg Neutrophils # Seg Neutrophils # Man Lymphocytes # (Manual) D-Dimer ABG pH POC ABG pCO2 55.1 H POC ABG pO2 53.6 L ABG Hemoglobin ABG Oxyhemoglobin 87.1 L ABG Sodium 131.2 L ABG Potassium ABG Chloride ABG Glucose 164 H Sodium Chloride Carbon Dioxide BUN Creatinine Glucose POC Glucose 173 H 126 H Hemoglobin A1c Lactic Acid Calcium Ferritin Total Bilirubin AST ALT Alkaline Phosphatase Lactate Dehydrogenase C-Reactive Protein Total Protein Albumin Triglycerides Arterial Blood Glucose 164 H Arterial Blood Ionized Calcium 4.4 L Ur Specific [place] Vancomycin Trough Coronavirus (PCR) 11/29/20 11/29/20 11/29/20 05:29 12:41 13:28 WBC RBC Hgb Hct Plt Count Lymph % (Auto) [place] % (Auto) Lymph # (Auto) [place] # (Auto) Baso # (Auto) Seg Neutrophils % Seg Neuts % (Manual) Lymphocytes % (Manual) Seg Neutrophils # Seg Neutrophils # Man Lymphocytes # (Manual) D-Dimer ABG pH POC ABG pCO2 POC ABG pO2 ABG Hemoglobin ABG Oxyhemoglobin ABG Sodium ABG Potassium ABG Chloride ABG Glucose Sodium Chloride Carbon Dioxide 40 H BUN 32 H Creatinine 0.4 L Glucose 274 H POC Glucose 173 H 257 H Hemoglobin A1c Lactic Acid Calcium 7.2 L Ferritin Total Bilirubin AST 57 H ALT 102 H Alkaline Phosphatase Lactate Dehydrogenase C-Reactive Protein Total Protein 5.7 L Albumin 2.1 L Triglycerides Arterial Blood Glucose Arterial Blood Ionized Calcium Ur Specific [place] Vancomycin Trough Coronavirus (PCR) 11/29/20 11/29/20 11/29/20 15:40 17:36 21:26 WBC RBC Hgb Hct Plt Count Lymph % (Auto) [place] % (Auto) Lymph # (Auto) [place] # (Auto) Baso # (Auto) Seg Neutrophils % Seg Neuts % (Manual) Lymphocytes % (Manual) Seg Neutrophils # Seg Neutrophils # Man Lymphocytes # (Manual) D-Dimer ABG pH POC ABG pCO2 POC ABG pO2 ABG Hemoglobin ABG Oxyhemoglobin ABG Sodium ABG Potassium ABG Chloride ABG Glucose Sodium Chloride Carbon Dioxide BUN Creatinine Glucose POC Glucose 240 H 244 H Hemoglobin A1c Lactic Acid Calcium Ferritin Total Bilirubin AST ALT Alkaline Phosphatase Lactate Dehydrogenase C-Reactive Protein Total Protein Albumin Triglycerides Arterial Blood Glucose Arterial Blood Ionized Calcium Ur Specific [place] Vancomycin Trough 4.0 L Coronavirus (PCR) 11/29/20 11/30/20 11/30/20 23:26 03:30 03:30 WBC RBC Hgb Hct Plt Count Lymph % (Auto) [place] % (Auto) Lymph # (Auto) [place] # (Auto) Baso # (Auto) Seg Neutrophils % Seg Neuts % (Manual) 97.0 H Lymphocytes % (Manual) 1.0 L Seg Neutrophils # Seg Neutrophils # Man 9.9 H Lymphocytes # (Manual) 0.1 L D-Dimer ABG pH POC ABG pCO2 POC ABG pO2 ABG Hemoglobin ABG Oxyhemoglobin ABG Sodium ABG Potassium ABG Chloride ABG Glucose Sodium Chloride Carbon Dioxide 38 H BUN 34 H Creatinine 0.4 L Glucose 305 H POC Glucose 283 H Hemoglobin A1c Lactic Acid Calcium 7.6 L Ferritin Total Bilirubin AST ALT 89 H Alkaline Phosphatase Lactate Dehydrogenase C-Reactive Protein Total Protein 6.0 L Albumin 2.3 L Triglycerides Arterial Blood Glucose Arterial Blood Ionized Calcium Ur Specific [place] Vancomycin Trough Coronavirus (PCR) 11/30/20 11/30/20 11/30/20 03:57 05:22 12:05 WBC RBC Hgb Hct Plt Count Lymph % (Auto) [place] % (Auto) Lymph # (Auto) [place] # (Auto) Baso # (Auto) Seg Neutrophils % Seg Neuts % (Manual) Lymphocytes % (Manual) Seg Neutrophils # Seg Neutrophils # Man Lymphocytes # (Manual) D-Dimer ABG pH POC ABG pCO2 60.8 H POC ABG pO2 51.1 L ABG Hemoglobin ABG Oxyhemoglobin 84.6 L ABG Sodium ABG Potassium ABG Chloride ABG Glucose 315 H Sodium Chloride Carbon Dioxide BUN Creatinine Glucose POC Glucose 295 H 413 H Hemoglobin A1c Lactic Acid Calcium Ferritin Total Bilirubin AST ALT Alkaline Phosphatase Lactate Dehydrogenase C-Reactive Protein Total Protein Albumin Triglycerides Arterial Blood Glucose 315 H Arterial Blood Ionized Calcium 4.5 L Ur Specific [place] Vancomycin Trough Coronavirus (PCR) 11/30/20 11/30/20 12/01/20 17:24 23:25 02:14 WBC RBC Hgb Hct Plt Count Lymph % (Auto) [place] % (Auto) Lymph # (Auto) [place] # (Auto) Baso # (Auto) Seg Neutrophils % Seg Neuts % (Manual) Lymphocytes % (Manual) Seg Neutrophils # Seg Neutrophils # Man Lymphocytes # (Manual) D-Dimer ABG pH 7.278 L POC ABG pCO2 78.1 H POC ABG pO2 79.5 L ABG Hemoglobin 11.6 L ABG Oxyhemoglobin ABG Sodium 134.5 L ABG Potassium 4.6 H ABG Chloride ABG Glucose 286 H Sodium Chloride Carbon Dioxide BUN Creatinine Glucose POC Glucose 305 H 302 H Hemoglobin A1c Lactic Acid Calcium Ferritin Total Bilirubin AST ALT Alkaline Phosphatase Lactate Dehydrogenase C-Reactive Protein Total Protein Albumin Triglycerides Arterial Blood Glucose 286 H Arterial Blood Ionized Calcium Ur Specific [place] Vancomycin Trough Coronavirus (PCR) 12/01/20 12/01/20 12/01/20 03:35 03:35 05:22 WBC 13.4 H RBC 3.54 L Hgb 10.4 L Hct 31.8 L Plt Count Lymph % (Auto) [place] % (Auto) Lymph # (Auto) [place] # (Auto) Baso # (Auto) Seg Neutrophils % Seg Neuts % (Manual) 95.0 H Lymphocytes % (Manual) 3.0 L Seg Neutrophils # Seg Neutrophils # Man 12.7 H Lymphocytes # (Manual) 0.4 L D-Dimer ABG pH POC ABG pCO2 POC ABG pO2 ABG Hemoglobin ABG Oxyhemoglobin ABG Sodium ABG Potassium ABG Chloride ABG Glucose Sodium Chloride Carbon Dioxide 35 H BUN 34 H Creatinine 0.5 L Glucose 279 H POC Glucose 259 H Hemoglobin A1c Lactic Acid Calcium 7.6 L Ferritin Total Bilirubin AST ALT 63 H Alkaline Phosphatase Lactate Dehydrogenase C-Reactive Protein Total Protein 4.8 L Albumin 2.1 L Triglycerides Arterial Blood Glucose Arterial Blood Ionized Calcium Ur Specific [place] Vancomycin Trough Coronavirus (PCR) 12/01/20 12/01/20 12/01/20 12:05 17:40 23:46 WBC RBC Hgb Hct Plt Count Lymph % (Auto) [place] % (Auto) Lymph # (Auto) [place] # (Auto) Baso # (Auto) Seg Neutrophils % Seg Neuts % (Manual) Lymphocytes % (Manual) Seg Neutrophils # Seg Neutrophils # Man Lymphocytes # (Manual) D-Dimer ABG pH POC ABG pCO2 POC ABG pO2 ABG Hemoglobin ABG Oxyhemoglobin ABG Sodium ABG Potassium ABG Chloride ABG Glucose Sodium Chloride Carbon Dioxide BUN Creatinine Glucose POC Glucose 197 H 244 H 284 H Hemoglobin A1c Lactic Acid Calcium Ferritin Total Bilirubin AST ALT Alkaline Phosphatase Lactate Dehydrogenase C-Reactive Protein Total Protein Albumin Triglycerides Arterial Blood Glucose Arterial Blood Ionized Calcium Ur Specific [place] Vancomycin Trough Coronavirus (PCR) 12/02/20 12/02/20 12/02/20 02:14 03:03 04:11 WBC 16.5 H RBC 3.55 L Hgb 10.5 L Hct 31.9 L Plt Count Lymph % (Auto) [place] % (Auto) Lymph # (Auto) [place] # (Auto) Baso # (Auto) Seg Neutrophils % Seg Neuts % (Manual) 90.0 H Lymphocytes % (Manual) 3.0 L Seg Neutrophils # Seg Neutrophils # Man 14.9 H Lymphocytes # (Manual) 0.5 L D-Dimer ABG pH POC ABG pCO2 74.8 H POC ABG pO2 58.9 L ABG Hemoglobin 11.5 L ABG Oxyhemoglobin ABG Sodium ABG Potassium ABG Chloride ABG Glucose 264 H Sodium Chloride Carbon Dioxide 37 H BUN 30 H Creatinine 0.4 L Glucose 245 H POC Glucose Hemoglobin A1c Lactic Acid Calcium 7.5 L Ferritin Total Bilirubin AST ALT Alkaline Phosphatase Lactate Dehydrogenase C-Reactive Protein Total Protein 5.2 L Albumin 2.2 L Triglycerides Arterial Blood Glucose 264 H Arterial Blood Ionized Calcium 4.5 L Ur Specific [place] Vancomycin Trough Coronavirus (PCR) 12/02/20 12/02/20 12/02/20 05:19 11:46 17:52 WBC RBC Hgb Hct Plt Count Lymph % (Auto) [place] % (Auto) Lymph # (Auto) [place] # (Auto) Baso # (Auto) Seg Neutrophils % Seg Neuts % (Manual) Lymphocytes % (Manual) Seg Neutrophils # Seg Neutrophils # Man Lymphocytes # (Manual) D-Dimer ABG pH POC ABG pCO2 POC ABG pO2 ABG Hemoglobin ABG Oxyhemoglobin ABG Sodium ABG Potassium ABG Chloride ABG Glucose Sodium Chloride Carbon Dioxide BUN Creatinine Glucose POC Glucose 238 H 236 H 233 H Hemoglobin A1c Lactic Acid Calcium Ferritin Total Bilirubin AST ALT Alkaline Phosphatase Lactate Dehydrogenase C-Reactive Protein Total Protein Albumin Triglycerides Arterial Blood Glucose Arterial Blood Ionized Calcium Ur Specific [place] Vancomycin Trough Coronavirus (PCR) 12/02/20 12/03/20 12/03/20 23:23 03:21 04:35 WBC RBC Hgb Hct Plt Count 112 L Lymph % (Auto) [place] % (Auto) Lymph # (Auto) [place] # (Auto) Baso # (Auto) Seg Neutrophils % Seg Neuts % (Manual) 93.0 H Lymphocytes % (Manual) 4.0 L Seg Neutrophils # Seg Neutrophils # Man 9.1 H Lymphocytes # (Manual) 0.4 L D-Dimer ABG pH 7.299 L POC ABG pCO2 82.1 H POC ABG pO2 62.4 L ABG Hemoglobin 11.5 L ABG Oxyhemoglobin 89.6 L ABG Sodium 134.3 L ABG Potassium ABG Chloride 95.0 L ABG Glucose 203 H Sodium Chloride Carbon Dioxide BUN Creatinine Glucose POC Glucose 213 H Hemoglobin A1c Lactic Acid Calcium Ferritin Total Bilirubin AST ALT Alkaline Phosphatase Lactate Dehydrogenase C-Reactive Protein Total Protein Albumin Triglycerides Arterial Blood Glucose 203 H Arterial Blood Ionized Calcium 4.5 L Ur Specific [place] Vancomycin Trough Coronavirus (PCR) 12/03/20 12/03/20 12/03/20 04:35 05:42 11:28 WBC RBC Hgb Hct Plt Count Lymph % (Auto) [place] % (Auto) Lymph # (Auto) [place] # (Auto) Baso # (Auto) Seg Neutrophils % Seg Neuts % (Manual) Lymphocytes % (Manual) Seg Neutrophils # Seg Neutrophils # Man Lymphocytes # (Manual) D-Dimer ABG pH POC ABG pCO2 POC ABG pO2 ABG Hemoglobin ABG Oxyhemoglobin ABG Sodium ABG Potassium ABG Chloride ABG Glucose Sodium Chloride 97.8 L Carbon Dioxide 43 H* BUN 25 H Creatinine 0.3 L Glucose 214 H POC Glucose 193 H 211 H Hemoglobin A1c Lactic Acid Calcium 7.7 L Ferritin Total Bilirubin AST ALT 63 H Alkaline Phosphatase 132 H Lactate Dehydrogenase C-Reactive Protein Total Protein 5.1 L Albumin 2.4 L Triglycerides Arterial Blood Glucose Arterial Blood Ionized Calcium Ur Specific [place] Vancomycin Trough Coronavirus (PCR) 12/03/20 12/03/20 12/04/20 17:45 23:57 00:11 WBC RBC Hgb Hct Plt Count Lymph % (Auto) [place] % (Auto) Lymph # (Auto) [place] # (Auto) Baso # (Auto) Seg Neutrophils % Seg Neuts % (Manual) Lymphocytes % (Manual) Seg Neutrophils # Seg Neutrophils # Man Lymphocytes # (Manual) D-Dimer ABG pH POC ABG pCO2 POC ABG pO2 ABG Hemoglobin ABG Oxyhemoglobin ABG Sodium ABG Potassium ABG Chloride ABG Glucose Sodium Chloride Carbon Dioxide BUN Creatinine Glucose POC Glucose 231 H 240 H 239 H Hemoglobin A1c Lactic Acid Calcium Ferritin Total Bilirubin AST ALT Alkaline Phosphatase Lactate Dehydrogenase C-Reactive Protein Total Protein Albumin Triglycerides Arterial Blood Glucose Arterial Blood Ionized Calcium Ur Specific [place] Vancomycin Trough Coronavirus (PCR) 12/04/20 12/04/20 12/04/20 04:00 05:20 05:34 WBC RBC Hgb Hct Plt Count Lymph % (Auto) [place] % (Auto) Lymph # (Auto) [place] # (Auto) Baso # (Auto) Seg Neutrophils % Seg Neuts % (Manual) Lymphocytes % (Manual) Seg Neutrophils # Seg Neutrophils # Man Lymphocytes # (Manual) D-Dimer ABG pH POC ABG pCO2 84.4 H POC ABG pO2 68.0 L ABG Hemoglobin 11.6 L ABG Oxyhemoglobin ABG Sodium 130.9 L ABG Potassium ABG Chloride 90.0 L ABG Glucose 244 H Sodium Chloride Carbon Dioxide BUN Creatinine Glucose POC Glucose 241 H 213 H Hemoglobin A1c Lactic Acid Calcium Ferritin Total Bilirubin AST ALT Alkaline Phosphatase Lactate Dehydrogenase C-Reactive Protein Total Protein Albumin Triglycerides Arterial Blood Glucose 244 H Arterial Blood Ionized Calcium 4.4 L Ur Specific [place] Vancomycin Trough Coronavirus (PCR) 12/04/20 Unknown WBC RBC Hgb Hct Plt Count Lymph % (Auto) [place] % (Auto) Lymph # (Auto) [place] # (Auto) Baso # (Auto) Seg Neutrophils % Seg Neuts % (Manual) Lymphocytes % (Manual) Seg Neutrophils # Seg Neutrophils # Man Lymphocytes # (Manual) D-Dimer ABG pH POC ABG pCO2 POC ABG pO2 ABG Hemoglobin ABG Oxyhemoglobin ABG Sodium ABG Potassium ABG Chloride ABG Glucose Sodium 136 L Chloride 90.0 L Carbon Dioxide 46 H* BUN 24 H Creatinine 0.3 L Glucose 226 H POC Glucose Hemoglobin A1c Lactic Acid Calcium 7.6 L Ferritin Total Bilirubin AST 46 H ALT 78 H Alkaline Phosphatase 172 H Lactate Dehydrogenase C-Reactive Protein Total Protein 6.0 L Albumin 2.8 L Triglycerides 156 H Arterial Blood Glucose Arterial Blood Ionized Calcium Ur Specific [place] Vancomycin Trough Coronavirus (PCR)
--- NOTE | 2020-12-04 11:21 | Progress Note ---
Assessment and Plan Assessment and plan: 59-year-old female presents with shortness of breath cough fever weakness. "1 to 2 days. Patient has severe hypoxia per EMS. Her saturations are in the low 80s. With all oxygen and nonrebreather came down to low 90s. Patient denies any past medical history. Exposure to coronavirus present. Does not have a primary care physician. 2/1: Patient continues on BiPAP throughout the night. Labs are remarkable for hypoxia with improving renal function but lactic acidosis without fever. CTA has been ordered to rule out pulmonary embolism. I agree with increasing enoxaparin to twice daily full dose for empiric treatment of pulmonary embolism. Will obtain ID consultation on further evaluation for possible underlying pneumonia versus COVID-19. We will also obtain echocardiogram for evaluation. Will discontinue fluids at this time. 2/2; Continue supportive care, Patient remains with very guarded prognosis, remains on BiPAP, continues on Remdesivir, and steroids. Will continue antico agulation, unable to get CTA Chest due to patients unstable clinical status. Will adjust insulin for better blood glucose 2/3: Continues on BIPAP, no clear improvement at this time. Will continue richelle roids therapy Remdesivir and also Full anticoagulation at this time. Will update family. Discussed with Medical Device Sales Consultant. 2/4: Taking a break from the BiPAP on high flow and nonrebreather 100% with saturation of 90% becomes hypoxic with any movement. Medical Device Sales Consultant input noted will get a dose of Lasix today. Will await a discussion with ID for possibly increasing steroid. I updated Patient's Cousin, Tayla Esquivel who is the emergency personal care service provider. Blood sugar remains fluctuating secondary to steriods, Encouraged Prone positioning. Noted with mild hyponatremia we will continue to monitor and manage 2/5: Continue supportive care wean oxygen as tolerated prognosis remains guarded. Encouraged to progress as tolerated. Awaiting labs today. Discussed with nursing staff and patient at bedside. 2/6: Discontinued Dexamethasone as Solumedrol started secondary to increased oxygen demand. Will give additional insulin for better control. Continue oxygen support patient still on high flow. Prognosis still guarded 2/7: Patient was intubated and placed on mechanical ventilation. Continue current medication. Will check a.m. labs today. Noted still with hypotension. Doubt septic shock at this time as patient has no new fever. Will adjust insulin for better blood sugar control. 11/23: Patient admitted with COVID-19 despite all efforts patient remains severely hypoxic and now is intubated. Medical Device Sales Consultant input noted. Blood pressure marginal at this time. Very poor prognosis. Continue Solu-Medrol. 11/24. Patient remains very hypoxic. Blood pressure borderline. Plan for initiation of paralytic agents as per material expeditor. Patient may need to be transferred if no improvement. 11/26. Off paralytics. Remains intubated. On steroids. Prognosis is poor. 11/27. Chest xray shows pneumomediastinum and subcutaneous emphysema. Surgery consulted. Plan for chest tube placement. Sputum culture grew MRSA. Patient started on vancomycin per ID. 11/28. Right chest tube placed yesterday by surgery. Repeat chest x-ray showed left small pneumothorax. Plan for chest tube placement on the left today. Remains on paralytic agents. 11/29. Remains intubated on vent. Had left chest tube placed yesterday. Vitals reviewed. Critical care following 11/30/ Remains on mechanical ventilation. Worsening hypoxia. Bilateral chest tubes in place. Vitals reviewed. Labs reviewed 12/01: Chest tube and mechanical ventilation remains in place, poor prognosis, FIO2 remains at 90%, adjust insulin for better blood glucose control 12/02: Patient remains on full ventilatory support and steroids, still with worsening leukocytosis ?inflammatory or infectious vs steroids. Continue vancomycin. 12/03; slowly weaning, 12/04: Still on the vent FiO2 down to 65% PEEP remains at 18. Still with poor prognosis. Problems --Acute respiratory failure with hypoxia 11/17 COVID 19 pneumonia Patient remains fully dependent on mechanical ventilatory support Medical Device Sales Consultant on board On solumedrol 60 q 6 ID on board Prognosis is poor --Pneumomediastinum, subcutaneous emphysema, small left-sided pneumothorax Right and Left chest tube in place Surgery following --Diabetes Mellitus Continue to adjust Insulin dosage Monitor blood glucose closely --- Covid pneumonia Management as above ---MRSA pneumonia Vancomycin ID on board The high probability of a clinically significant, sudden or life threatening deterioration of the [pulmonary] system(s) required my full and direct attention, intervention and personal management. The aggregate critical care time was [35] minutes. This time is in addition to time spent performing reported procedures but includes the following: [X] Data Review and interpretation [X] Patient assessment and monitoring of vital signs [X] Documentation [X] Medication orders and management History Interval history: Patient remains intubated, sedated, and with bilateral chest tubes. No adverse event reported to me overnight from nursing staff Hospitalist Physical - Physical exam Narrative exam: VITAL SIGNS: Reviewed. GENERAL: The patient appears normally developed, sedated HEAD: No signs of head trauma. EYES: Pupils are equal. EARS: Unable to examine MOUTH: Oropharynx with ET tube in place NECK: No adenopathy, no JVD. CHEST: Chest with diminished breath sounds bilaterally. Chest tubes in place no wheezes, rales, or rhonchi. CARDIAC: Regular rate and rhythm. S1 and S2, without murmurs, gallops, or rubs. VASCULAR: No Edema. Peripheral pulses normal and equal in all extremities. ABDOMEN: Soft, non tender and non distended. No rebound or guarding, and no masses palpated. Bowel Sounds normal. MUSCULOSKELETAL: Good range of motion of all major joints. Extremities without clubbing, cyanosis or edema. NEUROLOGIC EXAM: Sedated no focal sensory or strength deficits. PSYCHIATRIC: Sedated SKIN: detail exam as documented in skin assessment - Constitutional Vitals: Temp Pulse Resp BP Pulse Ox 98.6 F 96 H 30 H 94/49 98 12/04/20 08:00 12/04/20 11:00 12/04/20 11:00 12/04/20 11:00 12/04/20 11:00 General appearance: Present: mild distress, well-nourished HEART Score - HEART Score Troponin: Troponin T < 0.010 ng/mL (0.00-0.029) 11/22/20 Unknown Results - Labs CBC & Chem 7: 12/03/20 04:35 12/04/20 Unknown Labs: Laboratory Last Values WBC 9.8 K/mm3 (4.5-11.0) 12/03/20 04:35 RBC 4.64 M/mm3 (3.65-5.03) 12/03/20 04:35 Hgb 14.0 gm/dl (11.8-15.2) D 12/03/20 04:35 Hct 42.3 % (35.5-45.6) D 12/03/20 04:35 MCV 91 fl (84-94) 12/03/20 04:35 MCH 30 pg (28-32) 12/03/20 04:35 MCHC 33 % (32-34) 12/03/20 04:35 RDW 13.8 % (13.2-15.2) 12/03/20 04:35 Plt Count 112 K/mm3 (140-440) L 12/03/20 04:35 Lymph % (Auto) 2.0 % (13.4-35.0) L 11/27/20 06:25 Lamoure % (Auto) 5.2 % (0.0-7.3) 11/27/20 06:25 Eos % (Auto) 0.0 % (0.0-4.3) 11/27/20 06:25 Baso % (Auto) 0.1 % (0.0-1.8) 11/27/20 06:25 Lymph # (Auto) 0.3 K/mm3 (1.2-5.4) L 11/27/20 06:25 Lamoure # (Auto) 0.7 K/mm3 (0.0-0.8) 11/27/20 06:25 Eos # (Auto) 0.0 K/mm3 (0.0-0.4) 11/27/20 06:25 Baso # (Auto) 0.0 K/mm3 (0.0-0.1) 11/27/20 06:25 Add Manual Diff Complete 12/03/20 04:35 Total Counted 100 12/03/20 04:35 Seg Neutrophils % Senior Paralegal 12/03/20 04:35 Seg Neuts % (Manual) 93.0 % (40.0-70.0) H 12/03/20 04:35 Band Neutrophils % 2.0 % 12/02/20 02:14 Lymphocytes % (Manual) 4.0 % (13.4-35.0) L 12/03/20 04:35 Monocytes % (Manual) 3.0 % (0.0-7.3) 12/03/20 04:35 Nucleated RBC % Not Reportable 12/03/20 04:35 Seg Neutrophils # 12.7 K/mm3 (1.8-7.7) H 11/27/20 06:25 Seg Neutrophils # Man 9.1 K/mm3 (1.8-7.7) H 12/03/20 04:35 Band Neutrophils # 0.0 K/mm3 12/03/20 04:35 Lymphocytes # (Manual) 0.4 K/mm3 (1.2-5.4) L 12/03/20 04:35 Abs React Lymphs (Man) 0.0 K/mm3 12/03/20 04:35 Monocytes # (Manual) 0.3 K/mm3 (0.0-0.8) 12/03/20 04:35 Eosinophils # (Manual) 0.0 K/mm3 (0.0-0.4) 12/03/20 04:35 Basophils # (Manual) 0.0 K/mm3 (0.0-0.1) 12/03/20 04:35 Metamyelocytes # 0.0 K/mm3 12/03/20 04:35 Myelocytes # 0.0 K/mm3 12/03/20 04:35 Promyelocytes # 0.0 K/mm3 12/03/20 04:35 Blast Cells # 0.0 K/mm3 12/03/20 04:35 WBC Morphology Not Reportable 12/03/20 04:35 Hypersegmented Neuts Not Reportable 12/03/20 04:35 Hyposegmented Neuts Not Reportable 12/03/20 04:35 Hypogranular Neuts Not Reportable 12/03/20 04:35 Smudge Cells Not Reportable 12/03/20 04:35 Toxic Granulation Not Reportable 12/03/20 04:35 Toxic Vacuolation Not Reportable 12/03/20 04:35 Dohle Bodies Not Reportable 12/03/20 04:35 Pelger-Huet Anomaly Not Reportable 12/03/20 04:35 Tony Rods Not Reportable 12/03/20 04:35 Platelet Estimate Consistent w auto 12/03/20 04:35 Clumped Platelets Not Reportable 12/03/20 04:35 Plt Clumps, EDTA Not Reportable 12/03/20 04:35 Large Platelets Not Reportable 12/03/20 04:35 Giant Platelets Not Reportable 12/03/20 04:35 Platelet Satelliting Not Reportable 12/03/20 04:35 Plt Morphology Comment Not Reportable 12/03/20 04:35 RBC Morphology Not Reportable 12/03/20 04:35 Dimorphic RBCs Not Reportable 12/03/20 04:35 Polychromasia Not Reportable 12/03/20 04:35 Hypochromasia Not Reportable 12/03/20 04:35 Poikilocytosis Not Reportable 12/03/20 04:35 Anisocytosis Not Reportable 12/03/20 04:35 Microcytosis Not Reportable 12/03/20 04:35 Macrocytosis Not Reportable 12/03/20 04:35 Spherocytes Not Reportable 12/03/20 04:35 Pappenheimer Bodies Not Reportable 12/03/20 04:35 Sickle Cells Not Reportable 12/03/20 04:35 Target Cells Not Reportable 12/03/20 04:35 Tear Drop Cells Not Reportable 12/03/20 04:35 Ovalocytes Not Reportable 12/03/20 04:35 Stomatocytes 1+ 12/03/20 04:35 Helmet Cells Not Reportable 12/03/20 04:35 Cabrera-Magnolia Bodies Not Reportable 12/03/20 04:35 Montezuma Rings Not Reportable 12/03/20 04:35 Henrry Cells Not Reportable 12/03/20 04:35 Bite Cells Not Reportable 12/03/20 04:35 Crenated Cell Not Reportable 12/03/20 04:35 Elliptocytes Not Reportable 12/03/20 04:35 Acanthocytes (Spur) Not Reportable 12/03/20 04:35 Rouleaux Not Reportable 12/03/20 04:35 Hemoglobin C Crystals Not Reportable 12/03/20 04:35 Schistocytes Not Reportable 12/03/20 04:35 Malaria parasites Not Reportable 12/03/20 04:35 Yovani Bodies Not Reportable 12/03/20 04:35 Hem Pathologist Commnt No 12/03/20 04:35 D-Dimer 926.11 ng/mlDDU (0-234) H 11/26/20 06:04 ABG pH 7.338 (7.320-7.450) 12/04/20 04:00 POC ABG pCO2 84.4 mmHg (32.0-48.0) H 12/04/20 04:00 POC ABG pO2 68.0 mmHg (83-108) L 12/04/20 04:00 POC ABG HCO3 44.3 12/04/20 04:00 POC ABG Base Excess 15.1 12/04/20 04:00 ABG Hemoglobin 11.6 (12.0-17.5) L 12/04/20 04:00 ABG Oxyhemoglobin 89.6 (94-98) L 12/03/20 03:21 ABG Methemoglobin 0.3 (0.0-1.5) 12/03/20 03:21 ABG Sodium 130.9 mmol/L (136.0-145.0) L 12/04/20 04:00 ABG Potassium 4.5 mmol/L (3.40-4.50) 12/04/20 04:00 ABG Chloride 90.0 mmol/L (98-107) L 12/04/20 04:00 ABG Glucose 244 mg/dL (65-95) H 12/04/20 04:00 Carboxyhemoglobin 0.9 (0.5-1.5) 12/03/20 03:21 FiO2 70 12/04/20 04:00 Sodium 136 mmol/L (137-145) L 12/04/20 Unknown Potassium 4.8 mmol/L (3.6-5.0) 12/04/20 Unknown Chloride 90.0 mmol/L (98-107) L 12/04/20 Unknown Carbon Dioxide 46 mmol/L (22-30) H* 12/04/20 Unknown Anion Gap 7 mmol/L 12/04/20 Unknown BUN 24 mg/dL (9-20) H 12/04/20 Unknown Creatinine 0.3 mg/dL (0.8-1.3) L 12/04/20 Unknown Estimated GFR > 60 ml/min 12/04/20 Unknown BUN/Creatinine Ratio 80 % 12/04/20 Unknown Glucose 226 mg/dL (75-100) H 12/04/20 Unknown POC Glucose 213 mg/dL (70-105) H 12/04/20 05:34 Hemoglobin A1c 11.7 % (4-6) H 11/16/20 05:29 Lactic Acid 2.60 mmol/L (0.7-2.0) H* 11/16/20 05:29 Calcium 7.6 mg/dL (8.4-10.2) L 12/04/20 Unknown Phosphorus 2.90 mg/dL (2.5-4.5) 12/04/20 Unknown Magnesium 1.90 mg/dL (1.7-2.3) 12/04/20 Unknown Ferritin 778.8 ng/mL (30.0-300.0) H 11/26/20 04:00 Total Bilirubin 0.40 mg/dL (0.1-1.2) 12/04/20 Unknown AST 46 units/L (5-40) H 12/04/20 Unknown ALT 78 units/L (7-56) H 12/04/20 Unknown Alkaline Phosphatase 172 units/L (35-129) H 12/04/20 Unknown Lactate Dehydrogenase 288 units/L (91-180) H 11/26/20 04:00 Troponin T < 0.010 ng/mL (0.00-0.029) 11/22/20 Unknown C-Reactive Protein 1.40 mg/dL (0.00-1.30) H 11/26/20 04:00 NT-Pro-B Natriuret Pep 107.2 pg/mL (0-900) 11/17/20 10:21 Total Protein 6.0 g/dL (6.3-8.2) L 12/04/20 Unknown Albumin 2.8 g/dL (3.9-5) L 12/04/20 Unknown Albumin/Globulin Ratio 0.9 % 12/04/20 Unknown Triglycerides 156 mg/dL (2-149) H 12/04/20 Unknown Procalcitonin 0.51 ng/mL (<0.15) 11/15/20 10:39 Arterial Blood Glucose 244 mg/dL (65-95) H 12/04/20 04:00 Arterial Blood Ionized Calcium 4.4 mg/dL (4.6-5.3) L 12/04/20 04:00 Urine Color Faustina (Yellow) 11/16/20 01:45 Urine Turbidity Slightly-cloudy (Clear) 11/16/20 01:45 Urine pH 6.0 (5.0-7.0) 11/16/20 01:45 Ur Specific [place] 1.037 (1.003-1.030) H 11/16/20 01:45 Urine Protein 30 mg/dl mg/dL (Negative) 11/16/20 01:45 Urine Glucose (UA) >=500 mg/dL (Negative) 11/16/20 01:45 Urine Ketones 20 mg/dL (Negative) 11/16/20 01:45 Urine Blood Neg (Negative) 11/16/20 01:45 Urine Nitrite Neg (Negative) 11/16/20 01:45 Urine Bilirubin Neg (Negative) 11/16/20 01:45 Urine Urobilinogen 2.0 mg/dL (<2.0) 11/16/20 01:45 Ur Leukocyte Esterase Neg (Negative) 11/16/20 01:45 Urine WBC (Auto) 2.0 /HPF (0.0-6.0) 11/16/20 01:45 Urine RBC (Auto) 1.0 /HPF (0.0-6.0) 11/16/20 01:45 Urine Bacteria (Auto) 1+ /HPF (Negative) 11/16/20 01:45 Urine Mucus 3+ /HPF 11/16/20 01:45 Vancomycin Trough 4.0 ug/mL (5.0-20.0) L 11/29/20 15:40 Coronavirus (PCR) Positive (Negative) A 11/16/20 Unknown - Diagnostic Impressions Diagnostic Impressions: Echocardiogram 11/16/20 10:34 Transthoracic Echocardiogram Indication: Shortness of breath-COVID BP: 108/77 HR: 92 Conclusions *Global left ventricular systolic function is normal. *The estimated ejection fraction is 60-65%. *Mild to moderate concentric left ventricular hypertrophy is observed. *There is trace of mitral regurgitation. *There is mild to moderate tricuspid regurgitation. *There is evidence of mild pulmonary hypertension. *The right ventricular systolic pressure is calculated at 31 mmHg. Findings Left Ventricle: The left ventricular chamber size is normal. Mild to moderate concentric left ventricular hypertrophy is observed. Global left ventricular systolic function is normal. The estimated ejection fraction is 60-65%. Left Atrium: The left atrial chamber size is normal. Right Ventricle: The right ventricular cavity size is normal. The right ventricular global systolic function is normal. Right Atrium: The right atrial cavity size is normal. Aortic Valve: The aortic valve is trileaflet. There is no evidence of aortic regurgitation. There is no evidence of aortic stenosis. Mitral Valve: The mitral valve leaflets appear normal. There is trace of mitral regurgitation. There is no evidence of mitral stenosis. Tricuspid Valve: The tricuspid valve leaflets are normal. There is mild to moderate tricuspid regurgitation. The right ventricular systolic pressure is calculated at 31 mmHg. There is evidence of mild pulmonary hypertension. Pulmonic Valve: There is trace pulmonic regurgitation. Pericardium: There is no pericardial effusion. Aorta: There is no dilatation of the ascending aorta. There is no dilatation of the aortic root. Venous: The inferior vena cava appears normal in size. Measurements Chambers 2D Name Value Normal Range IVSd (2D) 0.81 cm (0.6 - 1.1) LVPWd (2D) 0.79 cm (0.6 - 1.1) LVIDd (2D) 4.22 cm (3.7 - 5.6) LVIDs (2D) 3.1 cm (2 - 3.8) LV FS (2D) 26.71 % - EF Teichholz (2D) 52.55 % - Ao root diameter (2D) 3.34 cm (2 - 3.7) Volumes/Mass Name Value Normal Range LA ESV SP 4CH (A/L) 10.87 ml - LA ESV SP 2CH (A/L) 18.74 ml - LA ESV BP (A/L) 16.38 ml - LA ESV BP (A/L) index 8.62 ml/m2 - LA ESV SP 4CH (MOD) 10.32 ml - LA ESV SP 2CH (MOD) 17.66 ml - LA ESV BP (MOD) 15.12 ml - LA ESV BP (MOD) index 7.96 ml/m2 - Diastolic/Systolic Function Name Value Normal Range MV E-wave Vmax 0.76 m/sec - MV deceleration time 133.63 msec - MV A-wave Vmax 1.1 m/sec - MV E:A ratio 0.69 ratio - Aortic Valve Name Value Normal Range AV Vmax 1.44 m/sec - AV VTI 22.94 cm - AV peak gradient 8.33 mmHg - AV mean gradient 4.73 mmHg - LVOT diameter 2.2 cm - LVOT Vmax 1.04 m/sec - LVOT VTI 18.88 cm - LVOT peak gradient 4.34 mmHg - LVOT mean gradient 2.31 mmHg - SV LVOT 72.05 ml - EVANGELISTA (continuity Vmax) 2.75 cm2 - EVANGELISTA (continuity VTI) 3.14 cm2 - Tricuspid Valve Name Value Normal Range TR Vmax 2.64 m/sec - TR peak gradient 28 mmHg - RAP 3 mmHg - RVSP 31 mmHg - Gupta/IV: Voiding Method Indwelling Catheter IV Catheter Type [Left Peripheral IV Antecubital] Active Medications - Current Medications Current Medications: Generic Name Dose Route Start Last Admin Trade Name Freq PRN Reason Stop Dose Admin Acetaminophen 650 mg 11/15/20 23:55 11/18/20 22:19 Acetaminophen 325 Mg Tab PO 650 mg Q4H PRN Administration Pain MILD(1-3)/Fever >100.5/BUTTS Lipase/Protease/Amylase 1 each 11/23/20 11:53 Lipase 10,500/Protease 25,000/Amylase 43,750 (Units) Dr Cap FEEDTUBE PRN PRN For Clogged Feeding Tube Enoxaparin Sodium 40 mg 12/03/20 22:00 12/03/20 21:07 Enoxaparin 40 Mg/0.4 Ml Inj SUB-Q 40 mg QDAY@2200 RAEANN Administration Famotidine 20 mg 11/22/20 22:00 12/03/20 21:07 Famotidine 20 Mg/2 Ml Inj IV 20 mg BID RAEANN Administration Fentanyl 50 mcg 11/21/20 21:53 Fentanyl 100 Mcg/2 Ml Inj IV Q10MIN PRN ANALGESIA Hydrophilic Ointment 1 applic 11/21/20 21:53 11/30/20 21:33 Lip Therapy Vaseline TP 1 applic Q2HR PRN Administration Dry Lips Fentanyl Citrate 2,000 mcg in 100 mls @ 3.625 mls/hr 11/21/20 22:00 12/04/20 09:24 Fentanyl Drip Premix IV 4 mcg/kg/hr TITR RAEANN 14.5 mls/hr Administration Protocol 1 MCG/KG/HR Midazolam HCl 100 mg/ Sodium 100 mls @ 2 mls/hr 11/21/20 22:00 12/03/20 21:04 Chloride IV 5 mg/hr TITR RAEANN 5 mls/hr Administration Protocol 2 MG/HR Norepinephrine 4 mg in 250 mls @ 7.5 mls/hr 11/22/20 17:00 Levophed Drip 4 Mg/Ns 250 Ml IV TITR RAEANN Protocol 2 MCG/MIN Propofol 1,000 mg in 100 mls @ 2.175 mls/hr 11/27/20 12:00 12/04/20 05:51 Diprivan 10 Mg/Ml IV 0 mcg/kg/min TITR RAEANN 0 mls/hr Titration Protocol 5 MCG/KG/MIN Insulin Glargine 30 units 12/02/20 09:00 12/04/20 09:40 Insulin Glargine 100 Units/Ml SUB-Q 30 units 0800,2200 RAEANN Administration Insulin Human Lispro 0 unit 11/22/20 06:00 12/04/20 01:18 Insulin Lispro 100 Unit/Ml SUB-Q 3 unit Q6HR RAEANN Administration Protocol Methylprednisolone Sodium Succinate 40 mg 12/03/20 14:00 12/04/20 05:08 Methylprednisolone Sod Succinate 40 Mg/1 Ml Inj IV 40 mg Q8HR RAEANN Administration Metoclopramide HCl 10 mg 11/15/20 23:55 Metoclopramide 10 Mg/2 Ml Inj IV Q6H PRN Nausea And Vomiting Midazolam HCl 2 mg 11/21/20 21:53 12/03/20 20:13 Midazolam 2 Mg/2 Ml Inj IV 2 mg Q10MIN PRN Administration Sedation Multi-Ingred Cream/Lotion/Oil/Oint 1 applic 11/21/20 21:53 Mineral Oil/Petrolatum, White Ophth Oint 3.5 Gm OU Q4HR PRN Dry Eye(s) Ondansetron HCl 4 mg 11/15/20 23:55 Ondansetron 4 Mg/2 Ml Inj IV Q8H PRN Nausea And Vomiting Senna/Docusate Sodium 2 tab 12/03/20 13:00 12/03/20 21:07 Sennosides/Docusate Sodium 8.6/50 Mg Tab PO 2 tab BID RAEANN Administration Simple Syrup 15 ml 11/23/20 11:53 Simple Syrup 15 Ml FEEDTUBE PRN PRN Hypoglycemia Simple Syrup 30 ml 11/23/20 11:53 Simple Syrup 15 Ml FEEDTUBE PRN PRN Hypoglycemia Sodium Bicarbonate 325 mg 11/23/20 11:53 Sodium Bicarbonate 325 Mg Tab FEEDTUBE PRN PRN For Clogged Feeding Tube Sodium Chloride 10 ml 11/16/20 10:00 12/03/20 21:07 Sodium Chloride 0.9% 10 Ml Flush Syringe IV 10 ml BID RAEANN Administration Sodium Chloride 10 ml 11/15/20 23:55 12/03/20 00:21 Sodium Chloride 0.9% 10 Ml Flush Syringe IV 10 ml PRN PRN Administration LINE FLUSH Nutrition/Malnutrition Assess - Dietary Evaluation Nutrition/Malnutrition Findings: Nutrition Notes Start: 11/20/20 12 :03 Freq: Status: Active Protocol: Document 12/03/20 12:41 AL (Rec: 12/03/20 13:01 AL [id number]) Co-Sign 12/03/20 12:41 Nutrition Notes Initial or Follow up Reassessment Current Diagnosis Diabetes,Sepsis,Respiratory Failure Other Pertinent Diagnosis Bilat pneu, COVID-19 (+) Current Diet Glucerna at 60 ml/hr Labs/Tests POC BG 211 BUN 25 Cr .3 Pertinent Medications Solumedrol Propofol 8.7 ml/hr Humalog Lantus Height 5 ft 6 in Weight 83.5 kg Usual Body Weight 80.5 kg Andrews Body Weight (kg) 64.54 BMI 29.7 Weight Status Overweight Subjective/Other Information F/U for TF tolerance. Pt tolerating Glucerna at 60 ml/ hr. Pt w/o BM since 11/21. MD to start bowel regimen Percent of energy/protein needs met: 100%/100% Burn Absent Trauma Absent GI Symptoms Last BM Difficulty In Swallowing,Chewing Food Allergy No Current % PO Negligible Minimum of two criteria Yes Energy Intake (severe) < or equal to 50% Estimated Energy Requirement > or equal to 5 days Interpretation of Weight Loss (severe) >2% in 1 week Fluid Accumulation Moderate to Severe (severe) #3 Nutrition Diagnosis Inadequate oral intake Diagnosis Progress(for reassessment Continues documentation) #2 Nutrition Diagnosis Malnutrition Diagnosis Progress(for reassessment Continues documentation) #1 Nutrition Diagnosis Unintended weight loss Diagnosis Progress(for reassessment Continues documentation) Is patient on ventilator? Yes Is Patient Ambulatory and/or Out of Bed No REE-([facility]-confined to bed) 1921.872 Kcal/Kg value to use for calculation 21 Approximate Energy Requirements Using 1754 kcal/Kg Calculation Used for Recommendations Kcal/kg Additional Notes Protein: 87-145 g/day (1.2-2g/ kg) Fluid: 1ml/kcal or per MD Nutrition Intervention Change Diet Order: Continue TF Nutrition Support: Glucerna 1.2 at 60 ml/hr. Flush 100 ml q4h Kcal 1,728 Protein (gm) 86 Fluid (mL) 1,159 Goal #1 TF tolerance Goal #2 Meet at least 75% of energy and protein needs via TF Anticipated Discharge Needs: Unknown at this time Follow-Up By: 12/09/20 Additional Comments F/U for TF tolerance
[2020-12-04] MEDS: FAMOTIDINE 20 MG/2 ML INJ IV SCH ×3 (12:00→21:32)
--- NOTE | 2020-12-04 14:37 | XRay Report ---
. XR chest 1V ap INDICATION / CLINICAL INFORMATION: Sub Q emphysema. COMPARISON: Radiograph from two days prior. FINDINGS: SUPPORT DEVICES: Unchanged. HEART / MEDIASTINUM: Pneumomediastinum is persistent. Increased air seen within the chest wall and ba se of neck. LUNGS / PLEURA: Lung parenchyma is not significantly changed. Persistent small pneumothoraces. ADDITIONAL FINDINGS: No significant additional findings. IMPRESSION: 1. Increased subcutaneous emphysema. Otherwise, no significant change. Signer Name: Salomon Whiatker MD Signed: 12/04/2020 2:33 PM Workstation Name: [id number]
[2020-12-04] MEDS: MIDAZOLAM 100 MG in SODIUM CHLORIDE 0.9% 80 ML IV SCH (16:05)
--- NOTE | 2020-12-04 16:32 | Progress Note ---
Assessment and Plan Cultures: SARS CoV-2 PCR: positive Blood culture: No growth 11/21/2020 tracheal aspirate culture: MRSA A/P: 59-year-old male: #Bilateral pneumonia: secondary to COVID-19. Admission labs showed leukocytosis, D-dimer greater than 10,000, ferritin 672, CRP 19.8, LDH 663, creatinine 0.6, procalcitonin 0.51. Completed 5 days of abx, remdesivir. #MRSA on ET aspirate culture, ?colonization v/s true disease, difficult to differentiate. #Right-sided pneumothorax and pneumomediastinum: Underwent placement of right- sided chest tube, likely secondary to COVID-19. #Acute hypoxic respiratory failure: Failed BiPAP. Remains on the vent. #Elevated d-dimer: DVT scan negative. Unable to get CTA Chest due to patients unstable clinical status #Transaminitis: secondary to COVID-19. Recs: -Completed vancomycin for MRSA on ET aspirate culture -continue steroids per ICU team -Continue prophylactic anticoagulation based on d-dimer per hospital protocol -trend ferritin, LDH, d-dimer, CRP every 2-3 days for risk stratification and to assess disease progression -guarded prognosis Dr. Driscoll covering this weekend Rm Carrillo MD [facility] ([facility] O: [phone] F: [phone] Subjective Date of service: 12/04/20 Principal diagnosis: COVID-19 Interval history: Afebrile, normal white count today. Imaging personally reviewed: Chest x-ray: Increased subcutaneous emphysema Objective - Exam Narrative Exam: Physical exam deferred due to PPE conservation strategy. Please refer to primary team's note. - Constitutional Vitals: Vital Signs Temp Pulse Resp BP Pulse Ox 98.4 F 88 30 H 97/53 96 12/04/20 12:00 12/04/20 12:29 12/04/20 12:01 12/04/20 12:01 12/04/20 12:29 Temperature -Last 24 Hours Temperature 98.4 F Temperature 98.6 F Temperature 98.7 F Temperature 98.9 F Temperature 98.8 F Temperature 98.6 F Temperature 99.3 F Temperature 99.6 F - Labs CBC & Chem 7: 12/03/20 04:35 12/04/20 Unknown Labs: Abnormal lab results 12/03/20 12/03/20 12/04/20 Range/Units 17:45 23:57 00:11 POC ABG pCO2 (32.0-48.0) mmHg POC ABG pO2 (83-108) mmHg ABG Hemoglobin (12.0-17.5) ABG Sodium (136.0-145.0) mmol/L ABG Chloride (98-107) mmol/L ABG Glucose (65-95) mg/dL Sodium (137-145) mmol/L Chloride (98-107) mmol/L Carbon Dioxide (22-30) mmol/L BUN (9-20) mg/dL Creatinine (0.8-1.3) mg/dL Glucose (75-100) mg/dL POC Glucose 231 H 240 H 239 H (70-105) mg/dL Calcium (8.4-10.2) mg/dL AST (5-40) units/L ALT (7-56) units/L Alkaline Phosphatase (35-129) units/L Total Protein (6.3-8.2) g/dL Albumin (3.9-5) g/dL Triglycerides (2-149) mg/dL Arterial Blood Glucose (65-95) mg/dL Arterial Blood Ionized Calcium (4.6-5.3) mg/dL 12/04/20 12/04/20 12/04/20 Range/Units 04:00 05:20 05:34 POC ABG pCO2 84.4 H (32.0-48.0) mmHg POC ABG pO2 68.0 L (83-108) mmHg ABG Hemoglobin 11.6 L (12.0-17.5) ABG Sodium 130.9 L (136.0-145.0) mmol/L ABG Chloride 90.0 L (98-107) mmol/L ABG Glucose 244 H (65-95) mg/dL Sodium (137-145) mmol/L Chloride (98-107) mmol/L Carbon Dioxide (22-30) mmol/L BUN (9-20) mg/dL Creatinine (0.8-1.3) mg/dL Glucose (75-100) mg/dL POC Glucose 241 H 213 H (70-105) mg/dL Calcium (8.4-10.2) mg/dL AST (5-40) units/L ALT (7-56) units/L Alkaline Phosphatase (35-129) units/L Total Protein (6.3-8.2) g/dL Albumin (3.9-5) g/dL Triglycerides (2-149) mg/dL Arterial Blood Glucose 244 H (65-95) mg/dL Arterial Blood Ionized Calcium 4.4 L (4.6-5.3) mg/dL 12/04/20 12/04/20 Range/Units 11:36 Unknown POC ABG pCO2 (32.0-48.0) mmHg POC ABG pO2 (83-108) mmHg ABG Hemoglobin (12.0-17.5) ABG Sodium (136.0-145.0) mmol/L ABG Chloride (98-107) mmol/L ABG Glucose (65-95) mg/dL Sodium 136 L (137-145) mmol/L Chloride 90.0 L (98-107) mmol/L Carbon Dioxide 46 H* (22-30) mmol/L BUN 24 H (9-20) mg/dL Creatinine 0.3 L (0.8-1.3) mg/dL Glucose 226 H (75-100) mg/dL POC Glucose 196 H (70-105) mg/dL Calcium 7.6 L (8.4-10.2) mg/dL AST 46 H (5-40) units/L ALT 78 H (7-56) units/L Alkaline Phosphatase 172 H (35-129) units/L Total Protein 6.0 L (6.3-8.2) g/dL Albumin 2.8 L (3.9-5) g/dL Triglycerides 156 H (2-149) mg/dL Arterial Blood Glucose (65-95) mg/dL Arterial Blood Ionized Calcium (4.6-5.3) mg/dL
[2020-12-04] MEDS: SENNOSIDES/DOCUSATE SODIUM 8.6/50 MG TAB PO SCH ×2 (19:47→21:32)
[2020-12-04] MEDS: ENOXAPARIN 40 MG/0.4 ML INJ SUB-Q SCH (21:32)
[2020-12-05] MEDS: fentaNYL DRIP Premix 2,000 MCG/100 ML BAG IV SCH ×4 (04:05→21:21)
[2020-12-05] MEDS: methylPREDNISolone Sod Succinate 40 MG/1 ML INJ IV SCH ×3 (05:07→21:20)
[2020-12-05] MEDS: INSULIN LISPRO 100 UNIT/ML SUB-Q SCH ×3 (05:32→18:12)
--- NOTE | 2020-12-05 08:46 | Progress Note ---
Assessment and Plan Assessment and plan: 59-year-old female presents with shortness of breath cough fever weakness. "1 to 2 days. Patient has severe hypoxia per EMS. Her saturations are in the low 80s. With all oxygen and nonrebreather came down to low 90s. Patient denies any past medical history. Exposure to coronavirus present. Does not have a primary care physician. 2/1: Patient continues on BiPAP throughout the night. Labs are remarkable for hypoxia with improving renal function but lactic acidosis without fever. CTA has been ordered to rule out pulmonary embolism. I agree with increasing enoxaparin to twice daily full dose for empiric treatment of pulmonary embolism. Will obtain ID consultation on further evaluation for possible underlying pneumonia versus COVID-19. We will also obtain echocardiogram for evaluation. Will discontinue fluids at this time. 2/2; Continue supportive care, Patient remains with very guarded prognosis, remains on BiPAP, continues on Remdesivir, and steroids. Will continue antico agulation, unable to get CTA Chest due to patients unstable clinical status. Will adjust insulin for better blood glucose 2/3: Continues on BIPAP, no clear improvement at this time. Will continue richelle roids therapy Remdesivir and also Full anticoagulation at this time. Will update family. Discussed with Automatic Spinning Lathe Setter. 2/4: Taking a break from the BiPAP on high flow and nonrebreather 100% with saturation of 90% becomes hypoxic with any movement. Automatic Spinning Lathe Setter input noted will get a dose of Lasix today. Will await a discussion with ID for possibly increasing steroid. I updated Patient's Cousin, Tayla Esquivel who is the emergency contact center professional. Blood sugar remains fluctuating secondary to steriods, Encouraged Prone positioning. Noted with mild hyponatremia we will continue to monitor and manage 2/5: Continue supportive care wean oxygen as tolerated prognosis remains guarded. Encouraged to progress as tolerated. Awaiting labs today. Discussed with nursing staff and patient at bedside. 2/6: Discontinued Dexamethasone as Solumedrol started secondary to increased oxygen demand. Will give additional insulin for better control. Continue oxygen support patient still on high flow. Prognosis still guarded 2/7: Patient was intubated and placed on mechanical ventilation. Continue current medication. Will check a.m. labs today. Noted still with hypotension. Doubt septic shock at this time as patient has no new fever. Will adjust insulin for better blood sugar control. 11/23: Patient admitted with COVID-19 despite all efforts patient remains severely hypoxic and now is intubated. Automatic Spinning Lathe Setter input noted. Blood pressure marginal at this time. Very poor prognosis. Continue Solu-Medrol. 11/24. Patient remains very hypoxic. Blood pressure borderline. Plan for initiation of paralytic agents as per channel development director. Patient may need to be transferred if no improvement. 11/26. Off paralytics. Remains intubated. On steroids. Prognosis is poor. 11/27. Chest xray shows pneumomediastinum and subcutaneous emphysema. Surgery consulted. Plan for chest tube placement. Sputum culture grew MRSA. Patient started on vancomycin per ID. 11/28. Right chest tube placed yesterday by surgery. Repeat chest x-ray showed left small pneumothorax. Plan for chest tube placement on the left today. Remains on paralytic agents. 11/29. Remains intubated on vent. Had left chest tube placed yesterday. Vitals reviewed. Critical care following 11/30/ Remains on mechanical ventilation. Worsening hypoxia. Bilateral chest tubes in place. Vitals reviewed. Labs reviewed 12/01: Chest tube and mechanical ventilation remains in place, poor prognosis, FIO2 remains at 90%, adjust insulin for better blood glucose control 12/02: Patient remains on full ventilatory support and steroids, still with worsening leukocytosis ?inflammatory or infectious vs steroids. Continue vancomycin. 12/03; slowly weaning, 12/04: Still on the vent FiO2 down to 65% PEEP remains at 18. Still with poor prognosis. 12/05: Patient continues on full ventilatory support per channel development director PEEP remains at 18. Still with hypercapnic respiratory failure. FiO2 down to 60% this morning. Chest tube to suction still weaning off steroids in the deliberation ongoing for possible a third chest tube as last documentation by surgery shows no plan for it at this time. Continue to manage insulin for better blood sugar control. --Acute respiratory failure with combined hypercapnia and hypoxia 2/2 COVID 19 pneumonia Patient remains fully dependent on mechanical ventilatory support Automatic Spinning Lathe Setter on board On solumedrol 60 q 6 ID on board Prognosis is poor --Pneumomediastinum, subcutaneous emphysema, small left-sided pneumothorax Right and Left chest tube in place Surgery following --Diabetes Mellitus Continue to adjust Insulin dosage Monitor blood glucose closely --- Covid pneumonia Management as above ---MRSA pneumonia Vancomycin ID on board Plan discussed with nursing staff. Automatic Spinning Lathe Setter have discussed with the patient's brother. No new updates at this time The high probability of a clinically significant, sudden or life threatening deterioration of the [pulmonary] system(s) required my full and direct attention, intervention and personal management. The aggregate critical care time was [35] minutes. This time is in addition to time spent performing reported procedures but includes the following: [X] Data Review and interpretation [X] Patient assessment and monitoring of vital signs [X] Documentation [X] Medication orders and management History Interval history: Patient remains intubated, sedated, and with bilateral chest tubes. No adverse event reported to me overnight from nursing staff Hospitalist Physical - Physical exam Narrative exam: VITAL SIGNS: Reviewed. GENERAL: The patient appears normally developed, sedated HEAD: No signs of head trauma. EYES: Pupils are equal. EARS: Unable to examine MOUTH: Oropharynx with ET tube in place NECK: No adenopathy, no JVD. CHEST: Chest with diminished breath sounds bilaterally. Chest tubes in place no wheezes, rales, or rhonchi. CARDIAC: Regular rate and rhythm. S1 and S2, without murmurs, gallops, or rubs. VASCULAR: No Edema. Peripheral pulses normal and equal in all extremities. ABDOMEN: Soft, non tender and non distended. No rebound or guarding, and no masses palpated. Bowel Sounds normal. MUSCULOSKELETAL: Good range of motion of all major joints. Extremities without clubbing, cyanosis or edema. NEUROLOGIC EXAM: Sedated no focal sensory or strength deficits. PSYCHIATRIC: Sedated SKIN: detail exam as documented in skin assessment - Constitutional Vitals: Temp Pulse Resp BP Pulse Ox 98.6 F 94 H 30 H 135/61 95 12/05/20 08:00 12/05/20 06:01 12/05/20 06:01 12/05/20 06:01 12/05/20 06:01 General appearance: Present: mild distress, well-nourished HEART Score - HEART Score Troponin: Troponin T < 0.010 ng/mL (0.00-0.029) 11/22/20 Unknown Results - Labs CBC & Chem 7: 12/03/20 04:35 12/04/20 Unknown Labs: Laboratory Last Values WBC 9.8 K/mm3 (4.5-11.0) 12/03/20 04:35 RBC 4.64 M/mm3 (3.65-5.03) 12/03/20 04:35 Hgb 14.0 gm/dl (11.8-15.2) D 12/03/20 04:35 Hct 42.3 % (35.5-45.6) D 12/03/20 04:35 MCV 91 fl (84-94) 12/03/20 04:35 MCH 30 pg (28-32) 12/03/20 04:35 MCHC 33 % (32-34) 12/03/20 04:35 RDW 13.8 % (13.2-15.2) 12/03/20 04:35 Plt Count 112 K/mm3 (140-440) L 12/03/20 04:35 Lymph % (Auto) 2.0 % (13.4-35.0) L 11/27/20 06:25 [place] % (Auto) 5.2 % (0.0-7.3) 11/27/20 06:25 Eos % (Auto) 0.0 % (0.0-4.3) 11/27/20 06:25 Baso % (Auto) 0.1 % (0.0-1.8) 11/27/20 06:25 Lymph # (Auto) 0.3 K/mm3 (1.2-5.4) L 11/27/20 06:25 [place] # (Auto) 0.7 K/mm3 (0.0-0.8) 11/27/20 06:25 Eos # (Auto) 0.0 K/mm3 (0.0-0.4) 11/27/20 06:25 Baso # (Auto) 0.0 K/mm3 (0.0-0.1) 11/27/20 06:25 Add Manual Diff Complete 12/03/20 04:35 Total Counted 100 12/03/20 04:35 Seg Neutrophils % Snow Technician 12/03/20 04:35 Seg Neuts % (Manual) 93.0 % (40.0-70.0) H 12/03/20 04:35 Band Neutrophils % 2.0 % 12/02/20 02:14 Lymphocytes % (Manual) 4.0 % (13.4-35.0) L 12/03/20 04:35 Monocytes % (Manual) 3.0 % (0.0-7.3) 12/03/20 04:35 Nucleated RBC % Not Reportable 12/03/20 04:35 Seg Neutrophils # 12.7 K/mm3 (1.8-7.7) H 11/27/20 06:25 Seg Neutrophils # Man 9.1 K/mm3 (1.8-7.7) H 12/03/20 04:35 Band Neutrophils # 0.0 K/mm3 12/03/20 04:35 Lymphocytes # (Manual) 0.4 K/mm3 (1.2-5.4) L 12/03/20 04:35 Abs React Lymphs (Man) 0.0 K/mm3 12/03/20 04:35 Monocytes # (Manual) 0.3 K/mm3 (0.0-0.8) 12/03/20 04:35 Eosinophils # (Manual) 0.0 K/mm3 (0.0-0.4) 12/03/20 04:35 Basophils # (Manual) 0.0 K/mm3 (0.0-0.1) 12/03/20 04:35 Metamyelocytes # 0.0 K/mm3 12/03/20 04:35 Myelocytes # 0.0 K/mm3 12/03/20 04:35 Promyelocytes # 0.0 K/mm3 12/03/20 04:35 Blast Cells # 0.0 K/mm3 12/03/20 04:35 WBC Morphology Not Reportable 12/03/20 04:35 Hypersegmented Neuts Not Reportable 12/03/20 04:35 Hyposegmented Neuts Not Reportable 12/03/20 04:35 Hypogranular Neuts Not Reportable 12/03/20 04:35 Smudge Cells Not Reportable 12/03/20 04:35 Toxic Granulation Not Reportable 12/03/20 04:35 Toxic Vacuolation Not Reportable 12/03/20 04:35 Dohle Bodies Not Reportable 12/03/20 04:35 Pelger-Huet Anomaly Not Reportable 12/03/20 04:35 Tony Rods Not Reportable 12/03/20 04:35 Platelet Estimate Consistent w auto 12/03/20 04:35 Clumped Platelets Not Reportable 12/03/20 04:35 Plt Clumps, EDTA Not Reportable 12/03/20 04:35 Large Platelets Not Reportable 12/03/20 04:35 Giant Platelets Not Reportable 12/03/20 04:35 Platelet Satelliting Not Reportable 12/03/20 04:35 Plt Morphology Comment Not Reportable 12/03/20 04:35 RBC Morphology Not Reportable 12/03/20 04:35 Dimorphic RBCs Not Reportable 12/03/20 04:35 Polychromasia Not Reportable 12/03/20 04:35 Hypochromasia Not Reportable 12/03/20 04:35 Poikilocytosis Not Reportable 12/03/20 04:35 Anisocytosis Not Reportable 12/03/20 04:35 Microcytosis Not Reportable 12/03/20 04:35 Macrocytosis Not Reportable 12/03/20 04:35 Spherocytes Not Reportable 12/03/20 04:35 Pappenheimer Bodies Not Reportable 12/03/20 04:35 Sickle Cells Not Reportable 12/03/20 04:35 Target Cells Not Reportable 12/03/20 04:35 Tear Drop Cells Not Reportable 12/03/20 04:35 Ovalocytes Not Reportable 12/03/20 04:35 Stomatocytes 1+ 12/03/20 04:35 Helmet Cells Not Reportable 12/03/20 04:35 Cabrera-Zortman Bodies Not Reportable 12/03/20 04:35 [place] Rings Not Reportable 12/03/20 04:35 Henrry Cells Not Reportable 12/03/20 04:35 Bite Cells Not Reportable 12/03/20 04:35 Crenated Cell Not Reportable 12/03/20 04:35 Elliptocytes Not Reportable 12/03/20 04:35 Acanthocytes (Spur) Not Reportable 12/03/20 04:35 Rouleaux Not Reportable 12/03/20 04:35 Hemoglobin C Crystals Not Reportable 12/03/20 04:35 Schistocytes Not Reportable 12/03/20 04:35 Malaria parasites Not Reportable 12/03/20 04:35 Yovani Bodies Not Reportable 12/03/20 04:35 Hem Pathologist Commnt No 12/03/20 04:35 D-Dimer 926.11 ng/mlDDU (0-234) H 11/26/20 06:04 ABG pH 7.343 (7.320-7.450) 12/05/20 04:16 POC ABG pCO2 86.7 mmHg (32.0-48.0) H 12/05/20 04:16 POC ABG pO2 58.0 mmHg (83-108) L 12/05/20 04:16 POC ABG HCO3 46 12/05/20 04:16 POC ABG Base Excess 16.6 12/05/20 04:16 ABG Hemoglobin 11.6 (12.0-17.5) L 12/05/20 04:16 ABG Oxyhemoglobin 89 (94-98) L 12/05/20 04:16 ABG Methemoglobin 0.3 (0.0-1.5) 12/05/20 04:16 ABG Sodium 130.1 mmol/L (136.0-145.0) L 12/05/20 04:16 ABG Potassium 4.9 mmol/L (3.40-4.50) H 12/05/20 04:16 ABG Chloride 89.0 mmol/L (98-107) L 12/05/20 04:16 ABG Glucose 254 mg/dL (65-95) H 12/05/20 04:16 Carboxyhemoglobin 1.3 (0.5-1.5) 12/05/20 04:16 FiO2 60 12/05/20 04:16 Sodium 136 mmol/L (137-145) L 12/04/20 Unknown Potassium 4.8 mmol/L (3.6-5.0) 12/04/20 Unknown Chloride 90.0 mmol/L (98-107) L 12/04/20 Unknown Carbon Dioxide 46 mmol/L (22-30) H* 12/04/20 Unknown Anion Gap 7 mmol/L 12/04/20 Unknown BUN 24 mg/dL (9-20) H 12/04/20 Unknown Creatinine 0.3 mg/dL (0.8-1.3) L 12/04/20 Unknown Estimated GFR > 60 ml/min 12/04/20 Unknown BUN/Creatinine Ratio 80 % 12/04/20 Unknown Glucose 226 mg/dL (75-100) H 12/04/20 Unknown POC Glucose 213 mg/dL (70-105) H 12/05/20 05:21 Hemoglobin A1c 11.7 % (4-6) H 11/16/20 05:29 Lactic Acid 2.60 mmol/L (0.7-2.0) H* 11/16/20 05:29 Calcium 7.6 mg/dL (8.4-10.2) L 12/04/20 Unknown Phosphorus 2.90 mg/dL (2.5-4.5) 12/04/20 Unknown Magnesium 1.90 mg/dL (1.7-2.3) 12/04/20 Unknown Ferritin 778.8 ng/mL (30.0-300.0) H 11/26/20 04:00 Total Bilirubin 0.40 mg/dL (0.1-1.2) 12/04/20 Unknown AST 46 units/L (5-40) H 12/04/20 Unknown ALT 78 units/L (7-56) H 12/04/20 Unknown Alkaline Phosphatase 172 units/L (35-129) H 12/04/20 Unknown Lactate Dehydrogenase 288 units/L (91-180) H 11/26/20 04:00 Troponin T < 0.010 ng/mL (0.00-0.029) 11/22/20 Unknown C-Reactive Protein 1.40 mg/dL (0.00-1.30) H 11/26/20 04:00 NT-Pro-B Natriuret Pep 107.2 pg/mL (0-900) 11/17/20 10:21 Total Protein 6.0 g/dL (6.3-8.2) L 12/04/20 Unknown Albumin 2.8 g/dL (3.9-5) L 12/04/20 Unknown Albumin/Globulin Ratio 0.9 % 12/04/20 Unknown Triglycerides 156 mg/dL (2-149) H 12/04/20 Unknown Procalcitonin 0.51 ng/mL (<0.15) 11/15/20 10:39 Arterial Blood Glucose 254 mg/dL (65-95) H 12/05/20 04:16 Arterial Blood Ionized Calcium 4.4 mg/dL (4.6-5.3) L 12/05/20 04:16 Urine Color Faustina (Yellow) 11/16/20 01:45 Urine Turbidity Slightly-cloudy (Clear) 11/16/20 01:45 Urine pH 6.0 (5.0-7.0) 11/16/20 01:45 Ur Specific [place] 1.037 (1.003-1.030) H 11/16/20 01:45 Urine Protein 30 mg/dl mg/dL (Negative) 11/16/20 01:45 Urine Glucose (UA) >=500 mg/dL (Negative) 11/16/20 01:45 Urine Ketones 20 mg/dL (Negative) 11/16/20 01:45 Urine Blood Neg (Negative) 11/16/20 01:45 Urine Nitrite Neg (Negative) 11/16/20 01:45 Urine Bilirubin Neg (Negative) 11/16/20 01:45 Urine Urobilinogen 2.0 mg/dL (<2.0) 11/16/20 01:45 Ur Leukocyte Esterase Neg (Negative) 11/16/20 01:45 Urine WBC (Auto) 2.0 /HPF (0.0-6.0) 11/16/20 01:45 Urine RBC (Auto) 1.0 /HPF (0.0-6.0) 11/16/20 01:45 Urine Bacteria (Auto) 1+ /HPF (Negative) 11/16/20 01:45 Urine Mucus 3+ /HPF 11/16/20 01:45 Vancomycin Trough 4.0 ug/mL (5.0-20.0) L 11/29/20 15:40 Coronavirus (PCR) Positive (Negative) A 11/16/20 Unknown - Diagnostic Impressions Diagnostic Impressions: Echocardiogram 11/16/20 10:34 Transthoracic Echocardiogram Indication: Shortness of breath-COVID BP: 108/77 HR: 92 Conclusions *Global left ventricular systolic function is normal. *The estimated ejection fraction is 60-65%. *Mild to moderate concentric left ventricular hypertrophy is observed. *There is trace of mitral regurgitation. *There is mild to moderate tricuspid regurgitation. *There is evidence of mild pulmonary hypertension. *The right ventricular systolic pressure is calculated at 31 mmHg. Findings Left Ventricle: The left ventricular chamber size is normal. Mild to moderate concentric left ventricular hypertrophy is observed. Global left ventricular systolic function is normal. The estimated ejection fraction is 60-65%. Left Atrium: The left atrial chamber size is normal. Right Ventricle: The right ventricular cavity size is normal. The right ventricular global systolic function is normal. Right Atrium: The right atrial cavity size is normal. Aortic Valve: The aortic valve is trileaflet. There is no evidence of aortic regurgitation. There is no evidence of aortic stenosis. Mitral Valve: The mitral valve leaflets appear normal. There is trace of mitral regurgitation. There is no evidence of mitral stenosis. Tricuspid Valve: The tricuspid valve leaflets are normal. There is mild to moderate tricuspid regurgitation. The right ventricular systolic pressure is calculated at 31 mmHg. There is evidence of mild pulmonary hypertension. Pulmonic Valve: There is trace pulmonic regurgitation. Pericardium: There is no pericardial effusion. Aorta: There is no dilatation of the ascending aorta. There is no dilatation of the aortic root. Venous: The inferior vena cava appears normal in size. Measurements Chambers 2D Name Value Normal Range IVSd (2D) 0.81 cm (0.6 - 1.1) LVPWd (2D) 0.79 cm (0.6 - 1.1) LVIDd (2D) 4.22 cm (3.7 - 5.6) LVIDs (2D) 3.1 cm (2 - 3.8) LV FS (2D) 26.71 % - EF Teichholz (2D) 52.55 % - Ao root diameter (2D) 3.34 cm (2 - 3.7) Volumes/Mass Name Value Normal Range LA ESV SP 4CH (A/L) 10.87 ml - LA ESV SP 2CH (A/L) 18.74 ml - LA ESV BP (A/L) 16.38 ml - LA ESV BP (A/L) index 8.62 ml/m2 - LA ESV SP 4CH (MOD) 10.32 ml - LA ESV SP 2CH (MOD) 17.66 ml - LA ESV BP (MOD) 15.12 ml - LA ESV BP (MOD) index 7.96 ml/m2 - Diastolic/Systolic Function Name Value Normal Range MV E-wave Vmax 0.76 m/sec - MV deceleration time 133.63 msec - MV A-wave Vmax 1.1 m/sec - MV E:A ratio 0.69 ratio - Aortic Valve Name Value Normal Range AV Vmax 1.44 m/sec - AV VTI 22.94 cm - AV peak gradient 8.33 mmHg - AV mean gradient 4.73 mmHg - LVOT diameter 2.2 cm - LVOT Vmax 1.04 m/sec - LVOT VTI 18.88 cm - LVOT peak gradient 4.34 mmHg - LVOT mean gradient 2.31 mmHg - SV LVOT 72.05 ml - EVANGELISTA (continuity Vmax) 2.75 cm2 - EVANGELISTA (continuity VTI) 3.14 cm2 - Tricuspid Valve Name Value Normal Range TR Vmax 2.64 m/sec - TR peak gradient 28 mmHg - RAP 3 mmHg - RVSP 31 mmHg - Gupta/IV: Voiding Method Indwelling Catheter IV Catheter Type [Left Peripheral IV Antecubital] Active Medications - Current Medications Current Medications: Generic Name Dose Route Start Last Admin Trade Name Freq PRN Reason Stop Dose Admin Acetaminophen 650 mg 11/15/20 23:55 11/18/20 22:19 Acetaminophen 325 Mg Tab PO 650 mg Q4H PRN Administration Pain MILD(1-3)/Fever >100.5/BUTTS Lipase/Protease/Amylase 1 each 11/23/20 11:53 Lipase 10,500/Protease 25,000/Amylase 43,750 (Units) Dr Cap FEEDTUBE PRN PRN For Clogged Feeding Tube Enoxaparin Sodium 40 mg 12/03/20 22:00 12/04/20 21:32 Enoxaparin 40 Mg/0.4 Ml Inj SUB-Q 40 mg QDAY@2200 RAEANN Administration Famotidine 20 mg 11/22/20 22:00 12/04/20 21:32 Famotidine 20 Mg/2 Ml Inj IV 20 mg BID RAEANN Administration Fentanyl 50 mcg 11/21/20 21:53 Fentanyl 100 Mcg/2 Ml Inj IV Q10MIN PRN ANALGESIA Hydrophilic Ointment 1 applic 11/21/20 21:53 11/30/20 21:33 Lip Therapy Vaseline TP 1 applic Q2HR PRN Administration Dry Lips Fentanyl Citrate 2,000 mcg in 100 mls @ 3.625 mls/hr 11/21/20 22:00 12/05/20 04:05 Fentanyl Drip Premix IV 4 mcg/kg/hr TITR RAEANN 14.5 mls/hr Administration Protocol 1 MCG/KG/HR Midazolam HCl 100 mg/ Sodium 100 mls @ 2 mls/hr 11/21/20 22:00 12/04/20 16:05 Chloride IV 5 mg/hr TITR RAEANN 5 mls/hr Administration Protocol 2 MG/HR Norepinephrine 4 mg in 250 mls @ 7.5 mls/hr 11/22/20 17:00 Levophed Drip 4 Mg/Ns 250 Ml IV TITR RAEANN Protocol 2 MCG/MIN Propofol 1,000 mg in 100 mls @ 2.175 mls/hr 11/27/20 12:00 12/04/20 23:59 Diprivan 10 Mg/Ml IV 25 mcg/kg/min TITR RAEANN 10.875 mls/hr Administration Protocol 5 MCG/KG/MIN Insulin Glargine 30 units 12/02/20 09:00 12/04/20 21:51 Insulin Glargine 100 Units/Ml SUB-Q 30 units 0800,2200 [facility] Administration Insulin Human Lispro 0 unit 11/22/20 06:00 12/05/20 05:32 Insulin Lispro 100 Unit/Ml SUB-Q 4 unit Q6HR [facility] Administration Protocol Methylprednisolone Sodium Succinate 40 mg 12/03/20 14:00 12/05/20 05:07 Methylprednisolone Sod Succinate 40 Mg/1 Ml Inj IV 40 mg Q8HR [facility] Administration Metoclopramide HCl 10 mg 11/15/20 23:55 Metoclopramide 10 Mg/2 Ml Inj IV Q6H PRN Nausea And Vomiting Midazolam HCl 2 mg 11/21/20 21:53 12/03/20 20:13 Midazolam 2 Mg/2 Ml Inj IV 2 mg Q10MIN PRN Administration Sedation Multi-Ingred Cream/Lotion/Oil/Oint 1 applic 11/21/20 21:53 Mineral Oil/Petrolatum, White Ophth Oint 3.5 Gm OU Q4HR PRN Dry Eye(s) Ondansetron HCl 4 mg 11/15/20 23:55 Ondansetron 4 Mg/2 Ml Inj IV Q8H PRN Nausea And Vomiting Senna/Docusate Sodium 2 tab 12/03/20 13:00 12/04/20 21:32 Sennosides/Docusate Sodium 8.6/50 Mg Tab PO 2 tab BID RAEANN Administration Simple Syrup 15 ml 11/23/20 11:53 Simple Syrup 15 Ml FEEDTUBE PRN PRN Hypoglycemia Simple Syrup 30 ml 11/23/20 11:53 Simple Syrup 15 Ml FEEDTUBE PRN PRN Hypoglycemia Sodium Bicarbonate 325 mg 11/23/20 11:53 Sodium Bicarbonate 325 Mg Tab FEEDTUBE PRN PRN For Clogged Feeding Tube Sodium Chloride 10 ml 11/16/20 10:00 12/04/20 21:33 Sodium Chloride 0.9% 10 Ml Flush Syringe IV 10 ml BID RAEANN Administration Sodium Chloride 10 ml 11/15/20 23:55 12/03/20 00:21 Sodium Chloride 0.9% 10 Ml Flush Syringe IV 10 ml PRN PRN Administration LINE FLUSH Nutrition/Malnutrition Assess - Dietary Evaluation Nutrition/Malnutrition Findings: Nutrition Notes Start: 11/20/20 12:03 Freq: Status: Active Protocol: Document 12/03/20 12:41 AL (Rec: 12/03/20 13:01 AL [id number]) Co-Sign 12/03/20 12:41 MK Nutrition Notes Initial or Follow up Reassessment Current Diagnosis Diabetes,Sepsis,Respiratory Failure Other Pertinent Diagnosis Bilat pneu, COVID-19 (+) Current Diet Glucerna at 60 ml/hr Labs/Tests POC BG 211 BUN 25 Cr .3 Pertinent Medications Solumedrol Propofol 8.7 ml/hr Humalog Lantus Height 5 ft 6 in Weight 83.5 kg Usual Body Weight 80.5 kg [place] Body Weight (kg) 64.54 BMI 29.7 Weight Status Overweight Subjective/Other Information F/U for TF tolerance. Pt tolerating Glucerna at 60 ml/ hr. Pt w/o BM since 11/21. MD to start bowel regimen Percent of energy/protein needs met: 100%/100% Burn Absent Trauma Absent GI Symptoms Last BM Difficulty In Swallowing,Chewing Food Allergy No Current % PO Negligible Minimum of two criteria Yes Energy Intake (severe) < or equal to 50% Estimated Energy Requirement > or equal to 5 days Interpretation of Weight Loss (severe) >2% in 1 week Fluid Accumulation Moderate to Severe (severe) #3 Nutrition Diagnosis Inadequate oral intake Diagnosis Progress(for reassessment Continues documentation) #2 Nutrition Diagnosis Malnutrition Diagnosis Progress(for reassessment Continues documentation) #1 Nutrition Diagnosis Unintended weight loss Diagnosis Progress(for reassessment Continues documentation) Is patient on ventilator? Yes Is Patient Ambulatory and/or Out of Bed No [facility] 1921.872 Kcal/Kg value to use for calculation 21 Approximate Energy Requirements Using 1754 kcal/Kg Calculation Used for Recommendations Kcal/kg Additional Notes Protein: 87-145 g/day (1.2-2g/ kg) Fluid: 1ml/kcal or per MD Nutrition Intervention Change Diet Order: Continue TF Nutrition Support: Glucerna 1.2 at 60 ml/hr. Flush 100 ml q4h Kcal 1,728 Protein (gm) 86 Fluid (mL) 1,159 Goal #1 TF tolerance Goal #2 Meet at least 75% of energy and protein needs via TF Anticipated Discharge Needs: Unknown at this time Follow-Up By: 12/09/20 Additional Comments F/U for TF tolerance
[2020-12-05] MEDS: SENNOSIDES/DOCUSATE SODIUM 8.6/50 MG TAB PO SCH ×2 (09:05→21:20)
[2020-12-05] MEDS: FAMOTIDINE 20 MG/2 ML INJ IV SCH ×2 (09:06→21:20)
[2020-12-05] MEDS: INSULIN GLARGINE 100 UNITS/ML SUB-Q SCH ×2 (09:19→22:13)
[2020-12-05] MEDS: MIDAZOLAM 100 MG in SODIUM CHLORIDE 0.9% 80 ML IV SCH (11:13)
--- NOTE | 2020-12-05 13:33 | Progress Note ---
Subjective Principal diagnosis: COVID-19 Interval history: on vent AC60 350 r 30 p 18 Objective Vital Signs - 12hr 12/05/20 12/05/20 12/05/20 02:00 03:00 03:23 Temperature 98.3 F Pulse Rate 90 89 Pulse Rate [ From Monitor] Respiratory 30 H 30 H Rate Blood Pressure 115/60 103/56 O2 Sat by Pulse 95 95 Oximetry 12/05/20 12/05/20 12/05/20 04:00 04:01 04:28 Temperature Pulse Rate 87 76 82 Pulse Rate [ 89 From Monitor] Respiratory 30 H Rate Blood Pressure 134/64 134/64 O2 Sat by Pulse 97 93 95 Oximetry 12/05/20 12/05/20 12/05/20 05:01 06:01 07:00 Temperature Pulse Rate 98 H 94 H 90 Pulse Rate [ From Monitor] Respiratory 24 30 H 30 H Rate Blood Pressure 190/81 135/61 100/56 O2 Sat by Pulse 86 95 96 Oximetry 12/05/20 12/05/20 12/05/20 08:00 08:49 09:00 Temperature 98.6 F Pulse Rate 83 85 78 Pulse Rate [ From Monitor] Respiratory 30 H 30 H Rate Blood Pressure 106/56 106/56 100/53 O2 Sat by Pulse 95 95 95 Oximetry 12/05/20 12/05/20 12/05/20 10:00 11:00 11:18 Temperature Pulse Rate 89 86 86 Pulse Rate [ From Monitor] Respiratory 30 H 30 H Rate Blood Pressure 146/66 119/61 119/61 O2 Sat by Pulse 95 96 96 Oximetry 12/05/20 12:00 Temperature 98.2 F Pulse Rate Pulse Rate [ From Monitor] Respiratory Rate Blood Pressure O2 Sat by Pulse Oximetry Constitutional: other (on vent orally intubated) ENT: other (Now intubated) Ascultation: Bilateral: rales, rhonchi Percussion: Bilateral: not dull Cardiovascular: regular rate and rhythm Gastrointestinal: soft, non-tender Neurologic: other (on vent) CBC and BMP: 12/03/20 04:35 12/04/20 Unknown ABG, PT/INR, D-dimer: ABG ABG pH 7.343 (7.320-7.450) 12/05/20 04:16 POC ABG pCO2 86.7 mmHg (32.0-48.0) H 12/05/20 04:16 POC ABG pO2 58.0 mmHg (83-108) L 12/05/20 04:16 POC ABG HCO3 46 12/05/20 04:16 PT/INR, D-dimer D-Dimer 926.11 ng/mlDDU (0-234) H 11/26/20 06:04 Abnormal lab findings: Abnormal Labs 11/15/20 11/15/20 11/15/20 10:39 10:39 10:39 WBC 14.3 H RBC 5.17 H Hgb Hct Plt Count Lymph % (Auto) 7.8 L [place] % (Auto) 7.6 H Lymph # (Auto) 1.1 L [place] # (Auto) 1.1 H Baso # (Auto) Seg Neutrophils % 83.3 H Seg Neuts % (Manual) Lymphocytes % (Manual) Seg Neutrophils # 11.9 H Seg Neutrophils # Man Lymphocytes # (Manual) D-Dimer ABG pH POC ABG pCO2 POC ABG pO2 ABG Hemoglobin ABG Oxyhemoglobin ABG Sodium ABG Potassium ABG Chloride ABG Glucose Sodium 128 L Chloride 96.0 L Carbon Dioxide BUN Creatinine 0.7 L Glucose 238 H POC Glucose Hemoglobin A1c Lactic Acid 4.10 H* Calcium 7.0 L Ferritin Total Bilirubin 1.40 H AST 49 H ALT 70 H Alkaline Phosphatase Lactate Dehydrogenase 663 H C-Reactive Protein 19.80 H Total Protein Albumin 2.9 L Triglycerides Arterial Blood Glucose Arterial Blood Ionized Calcium Ur Specific [place] Vancomycin Trough Coronavirus (PCR) 11/15/20 11/15/20 11/15/20 10:39 10:39 11:20 WBC RBC Hgb Hct Plt Count Lymph % (Auto) [place] % (Auto) Lymph # (Auto) [place] # (Auto) Baso # (Auto) Seg Neutrophils % Seg Neuts % (Manual) Lymphocytes % (Manual) Seg Neutrophils # Seg Neutrophils # Man Lymphocytes # (Manual) D-Dimer > 69754 H ABG pH POC ABG pCO2 29.9 L POC ABG pO2 137.3 H ABG Hemoglobin ABG Oxyhemoglobin ABG Sodium 126.5 L ABG Potassium ABG Chloride ABG Glucose 248 H Sodium Chloride Carbon Dioxide BUN Creatinine Glucose POC Glucose Hemoglobin A1c Lactic Acid Calcium Ferritin 672.8 H Total Bilirubin AST ALT Alkaline Phosphatase Lactate Dehydrogenase C-Reactive Protein Total Protein Albumin Triglycerides Arterial Blood Glucose 248 H Arterial Blood Ionized Calcium 4.1 L Ur Specific [place] Vancomycin Trough Coronavirus (PCR) 11/15/20 11/15/20 11/16/20 13:41 23:41 01:45 WBC RBC Hgb Hct Plt Count Lymph % (Auto) [place] % (Auto) Lymph # (Auto) [place] # (Auto) Baso # (Auto) Seg Neutrophils % Seg Neuts % (Manual) Lymphocytes % (Manual) Seg Neutrophils # Seg Neutrophils # Man Lymphocytes # (Manual) D-Dimer ABG pH POC ABG pCO2 POC ABG pO2 ABG Hemoglobin ABG Oxyhemoglobin ABG Sodium ABG Potassium ABG Chloride ABG Glucose Sodium Chloride Carbon Dioxide BUN Creatinine Glucose POC Glucose 284 H Hemoglobin A1c Lactic Acid 2.30 H* Calcium Ferritin Total Bilirubin AST ALT Alkaline Phosphatase Lactate Dehydrogenase C-Reactive Protein Total Protein Albumin Triglycerides Arterial Blood Glucose Arterial Blood Ionized Calcium Ur Specific [place] 1.037 H Vancomycin Trough Coronavirus (PCR) 11/16/20 11/16/20 11/16/20 05:29 05:29 05:29 WBC 12.9 H RBC Hgb Hct Plt Count Lymph % (Auto) 4.5 L [place] % (Auto) Lymph # (Auto) 0.6 L [place] # (Auto) Baso # (Auto) 0.2 H Seg Neutrophils % 89.8 H Seg Neuts % (Manual) Lymphocytes % (Manual) Seg Neutrophils # 11.5 H Seg Neutrophils # Man Lymphocytes # (Manual) D-Dimer ABG pH POC ABG pCO2 POC ABG pO2 ABG Hemoglobin ABG Oxyhemoglobin ABG Sodium ABG Potassium ABG Chloride ABG Glucose Sodium 131 L Chloride Carbon Dioxide 21 L BUN 23 H Creatinine 0.6 L Glucose 342 H POC Glucose Hemoglobin A1c Lactic Acid 2.60 H* Calcium 7.0 L Ferritin Total Bilirubin AST ALT Alkaline Phosphatase Lactate Dehydrogenase C-Reactive Protein Total Protein Albumin 2.4 L Triglycerides Arterial Blood Glucose Arterial Blood Ionized Calcium Ur Specific [place] Vancomycin Trough Coronavirus (PCR) 11/16/20 11/16/20 11/16/20 05:29 08:11 12:11 WBC RBC Hgb Hct Plt Count Lymph % (Auto) [place] % (Auto) Lymph # (Auto) [place] # (Auto) Baso # (Auto) Seg Neutrophils % Seg Neuts % (Manual) Lymphocytes % (Manual) Seg Neutrophils # Seg Neutrophils # Man Lymphocytes # (Manual) D-Dimer ABG pH POC ABG pCO2 POC ABG pO2 ABG Hemoglobin ABG Oxyhemoglobin ABG Sodium ABG Potassium ABG Chloride ABG Glucose Sodium Chloride Carbon Dioxide BUN Creatinine Glucose POC Glucose 329 H 320 H Hemoglobin A1c 11.7 H Lactic Acid Calcium Ferritin Total Bilirubin AST ALT Alkaline Phosphatase Lactate Dehydrogenase C-Reactive Protein Total Protein Albumin Triglycerides Arterial Blood Glucose Arterial Blood Ionized Calcium Ur Specific [place] Vancomycin Trough Coronavirus (PCR) 11/16/20 11/16/20 11/16/20 16:13 21:29 Unknown WBC RBC Hgb Hct Plt Count Lymph % (Auto) [place] % (Auto) Lymph # (Auto) [place] # (Auto) Baso # (Auto) Seg Neutrophils % Seg Neuts % (Manual) Lymphocytes % (Manual) Seg Neutrophils # Seg Neutrophils # Man Lymphocytes # (Manual) D-Dimer ABG pH POC ABG pCO2 POC ABG pO2 ABG Hemoglobin ABG Oxyhemoglobin ABG Sodium ABG Potassium ABG Chloride ABG Glucose Sodium Chloride Carbon Dioxide BUN Creatinine Glucose POC Glucose 257 H 376 H Hemoglobin A1c Lactic Acid Calcium Ferritin Total Bilirubin AST ALT Alkaline Phosphatase Lactate Dehydrogenase C-Reactive Protein Total Protein Albumin Triglycerides Arterial Blood Glucose Arterial Blood Ionized Calcium Ur Specific [place] Vancomycin Trough Coronavirus (PCR) Positive A 11/17/20 11/17/20 11/17/20 07:42 12:07 17:25 WBC RBC Hgb Hct Plt Count Lymph % (Auto) [place] % (Auto) Lymph # (Auto) [place] # (Auto) Baso # (Auto) Seg Neutrophils % Seg Neuts % (Manual) Lymphocytes % (Manual) Seg Neutrophils # Seg Neutrophils # Man Lymphocytes # (Manual) D-Dimer ABG pH POC ABG pCO2 POC ABG pO2 ABG Hemoglobin ABG Oxyhemoglobin ABG Sodium ABG Potassium ABG Chloride ABG Glucose Sodium Chloride Carbon Dioxide BUN Creatinine Glucose POC Glucose 231 H 380 H 302 H Hemoglobin A1c Lactic Acid Calcium Ferritin Total Bilirubin AST ALT Alkaline Phosphatase Lactate Dehydrogenase C-Reactive Protein Total Protein Albumin Triglycerides Arterial Blood Glucose Arterial Blood Ionized Calcium Ur Specific [place] Vancomycin Trough Coronavirus (PCR) 11/17/20 11/18/20 11/18/20 21:53 04:25 07:45 WBC RBC Hgb Hct Plt Count Lymph % (Auto) [place] % (Auto) Lymph # (Auto) [place] # (Auto) Baso # (Auto) Seg Neutrophils % Seg Neuts % (Manual) Lymphocytes % (Manual) Seg Neutrophils # Seg Neutrophils # Man Lymphocytes # (Manual) D-Dimer ABG pH POC ABG pCO2 POC ABG pO2 ABG Hemoglobin ABG Oxyhemoglobin ABG Sodium ABG Potassium ABG Chloride ABG Glucose Sodium 136 L Chloride Carbon Dioxide BUN 24 H Creatinine 0.6 L Glucose 212 H POC Glucose 293 H 216 H Hemoglobin A1c Lactic Acid Calcium 7.4 L Ferritin Total Bilirubin AST 41 H ALT Alkaline Phosphatase 142 H Lactate Dehydrogenase C-Reactive Protein Total Protein Albumin 2.3 L Triglycerides Arterial Blood Glucose Arterial Blood Ionized Calcium Ur Specific [place] Vancomycin Trough Coronavirus (PCR) 11/18/20 11/18/20 11/18/20 12:28 15:58 21:37 WBC RBC Hgb Hct Plt Count Lymph % (Auto) [place] % (Auto) Lymph # (Auto) [place] # (Auto) Baso # (Auto) Seg Neutrophils % Seg Neuts % (Manual) Lymphocytes % (Manual) Seg Neutrophils # Seg Neutrophils # Man Lymphocytes # (Manual) D-Dimer ABG pH POC ABG pCO2 POC ABG pO2 ABG Hemoglobin ABG Oxyhemoglobin ABG Sodium ABG Potassium ABG Chloride ABG Glucose Sodium Chloride Carbon Dioxide BUN Creatinine Glucose POC Glucose 165 H 220 H 311 H Hemoglobin A1c Lactic Acid Calcium Ferritin Total Bilirubin AST ALT Alkaline Phosphatase Lactate Dehydrogenase C-Reactive Protein Total Protein Albumin Triglycerides Arterial Blood Glucose Arterial Blood Ionized Calcium Ur Specific [place] Vancomycin Trough Coronavirus (PCR) 11/19/20 11/19/20 11/19/20 05:35 07:40 12:39 WBC RBC Hgb Hct Plt Count Lymph % (Auto) [place] % (Auto) Lymph # (Auto) [place] # (Auto) Baso # (Auto) Seg Neutrophils % Seg Neuts % (Manual) Lymphocytes % (Manual) Seg Neutrophils # Seg Neutrophils # Man Lymphocytes # (Manual) D-Dimer ABG pH POC ABG pCO2 POC ABG pO2 ABG Hemoglobin ABG Oxyhemoglobin ABG Sodium ABG Potassium ABG Chloride ABG Glucose Sodium 132 L Chloride Carbon Dioxide BUN 25 H Creatinine 0.5 L Glucose 179 H POC Glucose 149 H 306 H Hemoglobin A1c Lactic Acid Calcium 7.5 L Ferritin Total Bilirubin AST ALT Alkaline Phosphatase 139 H Lactate Dehydrogenase C-Reactive Protein Total Protein Albumin 2.4 L Triglycerides Arterial Blood Glucose Arterial Blood Ionized Calcium Ur Specific [place] Vancomycin Trough Coronavirus (PCR) 11/19/20 11/19/20 11/20/20 16:17 21:25 08:30 WBC RBC Hgb Hct Plt Count Lymph % (Auto) [place] % (Auto) Lymph # (Auto) [place] # (Auto) Baso # (Auto) Seg Neutrophils % Seg Neuts % (Manual) Lymphocytes % (Manual) Seg Neutrophils # Seg Neutrophils # Man Lymphocytes # (Manual) D-Dimer ABG pH POC ABG pCO2 POC ABG pO2 ABG Hemoglobin ABG Oxyhemoglobin ABG Sodium ABG Potassium ABG Chloride ABG Glucose Sodium Chloride Carbon Dioxide BUN Creatinine Glucose POC Glucose 364 H 347 H 141 H Hemoglobin A1c Lactic Acid Calcium Ferritin Total Bilirubin AST ALT Alkaline Phosphatase Lactate Dehydrogenase C-Reactive Protein Total Protein Albumin Triglycerides Arterial Blood Glucose Arterial Blood Ionized Calcium Ur Specific [place] Vancomycin Trough Coronavirus (PCR) 11/20/20 11/20/20 11/20/20 08:50 11:32 16:19 WBC RBC Hgb Hct Plt Count Lymph % (Auto) [place] % (Auto) Lymph # (Auto) [place] # (Auto) Baso # (Auto) Seg Neutrophils % Seg Neuts % (Manual) Lymphocytes % (Manual) Seg Neutrophils # Seg Neutrophils # Man Lymphocytes # (Manual) D-Dimer ABG pH POC ABG pCO2 POC ABG pO2 ABG Hemoglobin ABG Oxyhemoglobin ABG Sodium ABG Potassium ABG Chloride ABG Glucose Sodium 132 L Chloride 97.6 L Carbon Dioxide BUN 26 H Creatinine 0.5 L Glucose 201 H POC Glucose 296 H 327 H Hemoglobin A1c Lactic Acid Calcium 7.9 L Ferritin Total Bilirubin AST ALT Alkaline Phosphatase 137 H Lactate Dehydrogenase C-Reactive Protein Total Protein Albumin 2.6 L Triglycerides Arterial Blood Glucose Arterial Blood Ionized Calcium Ur Specific [place] Vancomycin Trough Coronavirus (PCR) 11/20/20 11/21/20 11/21/20 22:09 07:59 13:51 WBC RBC Hgb Hct Plt Count Lymph % (Auto) [place] % (Auto) Lymph # (Auto) [place] # (Auto) Baso # (Auto) Seg Neutrophils % Seg Neuts % (Manual) Lymphocytes % (Manual) Seg Neutrophils # Seg Neutrophils # Man Lymphocytes # (Manual) D-Dimer ABG pH POC ABG pCO2 POC ABG pO2 ABG Hemoglobin ABG Oxyhemoglobin ABG Sodium ABG Potassium ABG Chloride ABG Glucose Sodium Chloride Carbon Dioxide BUN Creatinine Glucose POC Glucose 311 H 218 H 304 H Hemoglobin A1c Lactic Acid Calcium Ferritin Total Bilirubin AST ALT Alkaline Phosphatase Lactate Dehydrogenase C-Reactive Protein Total Protein Albumin Triglycerides Arterial Blood Glucose Arterial Blood Ionized Calcium Ur Specific [place] Vancomycin Trough Coronavirus (PCR) 11/21/20 11/21/20 11/21/20 16:09 21:34 23:00 WBC RBC Hgb Hct Plt Count Lymph % (Auto) [place] % (Auto) Lymph # (Auto) [place] # (Auto) Baso # (Auto) Seg Neutrophils % Seg Neuts % (Manual) Lymphocytes % (Manual) Seg Neutrophils # Seg Neutrophils # Man Lymphocytes # (Manual) D-Dimer ABG pH 7.206 L POC ABG pCO2 59.3 H POC ABG pO2 76.7 L ABG Hemoglobin ABG Oxyhemoglobin ABG Sodium 133.1 L ABG Potassium ABG Chloride ABG Glucose 320 H Sodium Chloride Carbon Dioxide BUN Creatinine Glucose POC Glucose 239 H 279 H Hemoglobin A1c Lactic Acid Calcium Ferritin Total Bilirubin AST ALT Alkaline Phosphatase Lactate Dehydrogenase C-Reactive Protein Total Protein Albumin Triglycerides Arterial Blood Glucose 320 H Arterial Blood Ionized Calcium Ur Specific [place] Vancomycin Trough Coronavirus (PCR) 11/22/20 11/22/20 11/22/20 04:52 04:52 04:52 WBC RBC Hgb Hct Plt Count Lymph % (Auto) [place] % (Auto) Lymph # (Auto) [place] # (Auto) Baso # (Auto) Seg Neutrophils % Seg Neuts % (Manual) Lymphocytes % (Manual) Seg Neutrophils # Seg Neutrophils # Man Lymphocytes # (Manual) D-Dimer 1858.36 H ABG pH POC ABG pCO2 POC ABG pO2 ABG Hemoglobin ABG Oxyhemoglobin ABG Sodium ABG Potassium ABG Chloride ABG Glucose Sodium Chloride Carbon Dioxide BUN Creatinine Glucose POC Glucose Hemoglobin A1c Lactic Acid Calcium Ferritin 734.2 H Total Bilirubin AST ALT Alkaline Phosphatase Lactate Dehydrogenase 404 H C-Reactive Protein 2.80 H Total Protein Albumin Triglycerides Arterial Blood Glucose Arterial Blood Ionized Calcium Ur Specific [place] Vancomycin Trough Coronavirus (PCR) 11/22/20 11/22/20 11/22/20 05:12 05:39 11:50 WBC RBC Hgb Hct Plt Count Lymph % (Auto) [place] % (Auto) Lymph # (Auto) [place] # (Auto) Baso # (Auto) Seg Neutrophils % Seg Neuts % (Manual) Lymphocytes % (Manual) Seg Neutrophils # Seg Neutrophils # Man Lymphocytes # (Manual) D-Dimer ABG pH POC ABG pCO2 POC ABG pO2 51.0 L ABG Hemoglobin ABG Oxyhemoglobin ABG Sodium 131.2 L ABG Potassium 4.6 H ABG Chloride ABG Glucose 317 H Sodium Chloride Carbon Dioxide BUN Creatinine Glucose POC Glucose 340 H 417 H Hemoglobin A1c Lactic Acid Calcium Ferritin Total Bilirubin AST ALT Alkaline Phosphatase Lactate Dehydrogenase C-Reactive Protein Total Protein Albumin Triglycerides Arterial Blood Glucose 317 H Arterial Blood Ionized Calcium 4.4 L Ur Specific [place] Vancomycin Trough Coronavirus (PCR) 11/22/20 11/22/20 11/22/20 12:22 12:22 17:10 WBC 14.4 H RBC Hgb Hct Plt Count Lymph % (Auto) [place] % (Auto) Lymph # (Auto) [place] # (Auto) Baso # (Auto) Seg Neutrophils % Seg Neuts % (Manual) 98.0 H Lymphocytes % (Manual) Seg Neutrophils # Seg Neutrophils # Man 14.1 H Lymphocytes # (Manual) 0.0 L D-Dimer ABG pH POC ABG pCO2 POC ABG pO2 ABG Hemoglobin ABG Oxyhemoglobin ABG Sodium ABG Potassium ABG Chloride ABG Glucose Sodium 132 L Chloride Carbon Dioxide BUN 36 H Creatinine 0.6 L Glucose 219 H POC Glucose 157 H Hemoglobin A1c Lactic Acid Calcium 7.2 L Ferritin Total Bilirubin AST ALT Alkaline Phosphatase Lactate Dehydrogenase C-Reactive Protein Total Protein Albumin Triglycerides Arterial Blood Glucose Arterial Blood Ionized Calcium Ur Specific [place] Vancomycin Trough Coronavirus (PCR) 11/22/20 11/22/20 11/22/20 18:33 21:44 23:47 WBC RBC Hgb Hct Plt Count Lymph % (Auto) [place] % (Auto) Lymph # (Auto) [place] # (Auto) Baso # (Auto) Seg Neutrophils % Seg Neuts % (Manual) Lymphocytes % (Manual) Seg Neutrophils # Seg Neutrophils # Man Lymphocytes # (Manual) D-Dimer ABG pH POC ABG pCO2 POC ABG pO2 60.8 L ABG Hemoglobin ABG Oxyhemoglobin 88.1 L ABG Sodium 135.1 L ABG Potassium ABG Chloride ABG Glucose 141 H Sodium Chloride Carbon Dioxide BUN Creatinine Glucose POC Glucose 117 H 123 H Hemoglobin A1c Lactic Acid Calcium Ferritin Total Bilirubin AST ALT Alkaline Phosphatase Lactate Dehydrogenase C-Reactive Protein Total Protein Albumin Triglycerides Arterial Blood Glucose 141 H Arterial Blood Ionized Calcium Ur Specific [place] Vancomycin Trough Coronavirus (PCR) 11/23/20 11/23/20 11/23/20 04:00 04:00 05:23 WBC 14.4 H RBC Hgb Hct Plt Count Lymph % (Auto) [place] % (Auto) Lymph # (Auto) [place] # (Auto) Baso # (Auto) Seg Neutrophils % Seg Neuts % (Manual) Lymphocytes % (Manual) Seg Neutrophils # Seg Neutrophils # Man Lymphocytes # (Manual) D-Dimer ABG pH POC ABG pCO2 POC ABG pO2 ABG Hemoglobin ABG Oxyhemoglobin ABG Sodium ABG Potassium ABG Chloride ABG Glucose Sodium 136 L Chloride Carbon Dioxide BUN 33 H Creatinine 0.6 L Glucose 115 H POC Glucose 173 H Hemoglobin A1c Lactic Acid Calcium 7.1 L Ferritin Total Bilirubin AST 64 H ALT 75 H Alkaline Phosphatase Lactate Dehydrogenase C-Reactive Protein Total Protein 5.9 L D Albumin 2.4 L Triglycerides Arterial Blood Glucose Arterial Blood Ionized Calcium Ur Specific [place] Vancomycin Trough Coronavirus (PCR) 11/23/20 11/23/20 11/23/20 05:40 11:27 17:10 WBC RBC Hgb Hct Plt Count Lymph % (Auto) [place] % (Auto) Lymph # (Auto) [place] # (Auto) Baso # (Auto) Seg Neutrophils % Seg Neuts % (Manual) Lymphocytes % (Manual) Seg Neutrophils # Seg Neutrophils # Man Lymphocytes # (Manual) D-Dimer ABG pH POC ABG pCO2 POC ABG pO2 56.5 L ABG Hemoglobin ABG Oxyhemoglobin ABG Sodium ABG Potassium ABG Chloride 109.0 H ABG Glucose 114 H Sodium Chloride Carbon Dioxide BUN Creatinine Glucose POC Glucose 114 H 136 H Hemoglobin A1c Lactic Acid Calcium Ferritin Total Bilirubin AST ALT Alkaline Phosphatase Lactate Dehydrogenase C-Reactive Protein Total Protein Albumin Triglycerides Arterial Blood Glucose 114 H Arterial Blood Ionized Calcium 4.5 L Ur Specific [place] Vancomycin Trough Coronavirus (PCR) 11/24/20 11/24/20 11/24/20 05:14 05:14 05:14 WBC RBC Hgb Hct Plt Count Lymph % (Auto) [place] % (Auto) Lymph # (Auto) [place] # (Auto) Baso # (Auto) Seg Neutrophils % Seg Neuts % (Manual) Lymphocytes % (Manual) Seg Neutrophils # Seg Neutrophils # Man Lymphocytes # (Manual) D-Dimer 1433.39 H ABG pH POC ABG pCO2 POC ABG pO2 ABG Hemoglobin ABG Oxyhemoglobin ABG Sodium ABG Potassium ABG Chloride ABG Glucose Sodium Chloride Carbon Dioxide BUN Creatinine Glucose POC Glucose Hemoglobin A1c Lactic Acid Calcium Ferritin 997.5 H Total Bilirubin AST ALT Alkaline Phosphatase Lactate Dehydrogenase 463 H C-Reactive Protein Total Protein Albumin Triglycerides Arterial Blood Glucose Arterial Blood Ionized Calcium Ur Specific [place] Vancomycin Trough Coronavirus (PCR) 11/24/20 11/24/20 11/24/20 05:31 05:36 12:05 WBC RBC Hgb Hct Plt Count Lymph % (Auto) [place] % (Auto) Lymph # (Auto) [place] # (Auto) Baso # (Auto) Seg Neutrophils % Seg Neuts % (Manual) Lymphocytes % (Manual) Seg Neutrophils # Seg Neutrophils # Man Lymphocytes # (Manual) D-Dimer ABG pH POC ABG pCO2 POC ABG pO2 57.2 L ABG Hemoglobin ABG Oxyhemoglobin ABG Sodium ABG Potassium ABG Chloride ABG Glucose 180 H Sodium Chloride Carbon Dioxide BUN Creatinine Glucose POC Glucose 199 H 143 H Hemoglobin A1c Lactic Acid Calcium Ferritin Total Bilirubin AST ALT Alkaline Phosphatase Lactate Dehydrogenase C-Reactive Protein Total Protein Albumin Triglycerides Arterial Blood Glucose 180 H Arterial Blood Ionized Calcium 4.5 L Ur Specific [place] Vancomycin Trough Coronavirus (PCR) 11/24/20 11/24/20 11/24/20 12:14 17:47 23:47 WBC RBC Hgb Hct Plt Count Lymph % (Auto) [place] % (Auto) Lymph # (Auto) [place] # (Auto) Baso # (Auto) Seg Neutrophils % Seg Neuts % (Manual) Lymphocytes % (Manual) Seg Neutrophils # Seg Neutrophils # Man Lymphocytes # (Manual) D-Dimer ABG pH 7.261 L POC ABG pCO2 59.7 H POC ABG pO2 75.7 L ABG Hemoglobin ABG Oxyhemoglobin 92.5 L ABG Sodium ABG Potassium ABG Chloride 108.0 H ABG Glucose 150 H Sodium Chloride Carbon Dioxide BUN Creatinine Glucose POC Glucose 223 H 179 H Hemoglobin A1c Lactic Acid Calcium Ferritin Total Bilirubin AST ALT Alkaline Phosphatase Lactate Dehydrogenase C-Reactive Protein Total Protein Albumin Triglycerides Arterial Blood Glucose 150 H Arterial Blood Ionized Calcium Ur Specific [place] Vancomycin Trough Coronavirus (PCR) 11/25/20 11/25/20 11/25/20 03:29 05:07 05:15 WBC 13.9 H RBC Hgb Hct Plt Count Lymph % (Auto) [place] % (Auto) Lymph # (Auto) [place] # (Auto) Baso # (Auto) Seg Neutrophils % Seg Neuts % (Manual) 97.0 H Lymphocytes % (Manual) Seg Neutrophils # Seg Neutrophils # Man 13.5 H Lymphocytes # (Manual) 0.0 L D-Dimer ABG pH 7.272 L POC ABG pCO2 69.0 H POC ABG pO2 132.9 H ABG Hemoglobin ABG Oxyhemoglobin ABG Sodium ABG Potassium ABG Chloride ABG Glucose 174 H Sodium Chloride Carbon Dioxide BUN Creatinine Glucose POC Glucose 168 H Hemoglobin A1c Lactic Acid Calcium Ferritin Total Bilirubin AST ALT Alkaline Phosphatase Lactate Dehydrogenase C-Reactive Protein Total Protein Albumin Triglycerides Arterial Blood Glucose 174 H Arterial Blood Ionized Calcium Ur Specific [place] Vancomycin Trough Coronavirus (PCR) 11/25/20 11/25/20 11/25/20 05:15 11:25 17:35 WBC RBC Hgb Hct Plt Count Lymph % (Auto) [place] % (Auto) Lymph # (Auto) [place] # (Auto) Baso # (Auto) Seg Neutrophils % Seg Neuts % (Manual) Lymphocytes % (Manual) Seg Neutrophils # Seg Neutrophils # Man Lymphocytes # (Manual) D-Dimer ABG pH POC ABG pCO2 POC ABG pO2 ABG Hemoglobin ABG Oxyhemoglobin ABG Sodium ABG Potassium ABG Chloride ABG Glucose Sodium Chloride Carbon Dioxide BUN 29 H Creatinine 0.5 L Glucose 161 H POC Glucose 224 H 228 H Hemoglobin A1c Lactic Acid Calcium 7.8 L Ferritin Total Bilirubin AST 89 H ALT 129 H Alkaline Phosphatase Lactate Dehydrogenase C-Reactive Protein Total Protein 5.8 L Albumin 2.5 L Triglycerides Arterial Blood Glucose Arterial Blood Ionized Calcium Ur Specific [place] Vancomycin Trough Coronavirus (PCR) 11/25/20 11/25/20 11/26/20 20:45 23:28 04:00 WBC RBC Hgb Hct Plt Count Lymph % (Auto) [place] % (Auto) Lymph # (Auto) [place] # (Auto) Baso # (Auto) Seg Neutrophils % Seg Neuts % (Manual) Lymphocytes % (Manual) Seg Neutrophils # Seg Neutrophils # Man Lymphocytes # (Manual) D-Dimer ABG pH POC ABG pCO2 POC ABG pO2 ABG Hemoglobin ABG Oxyhemoglobin ABG Sodium ABG Potassium ABG Chloride ABG Glucose Sodium Chloride Carbon Dioxide BUN Creatinine Glucose POC Glucose 177 H 243 H Hemoglobin A1c Lactic Acid Calcium Ferritin 778.8 H Total Bilirubin AST ALT Alkaline Phosphatase Lactate Dehydrogenase C-Reactive Protein Total Protein Albumin Triglycerides Arterial Blood Glucose Arterial Blood Ionized Calcium Ur Specific [place] Vancomycin Trough Coronavirus (PCR) 11/26/20 11/26/20 11/26/20 04:00 05:34 06:04 WBC RBC Hgb Hct Plt Count Lymph % (Auto) [place] % (Auto) Lymph # (Auto) [place] # (Auto) Baso # (Auto) Seg Neutrophils % Seg Neuts % (Manual) Lymphocytes % (Manual) Seg Neutrophils # Seg Neutrophils # Man Lymphocytes # (Manual) D-Dimer 926.11 H ABG pH POC ABG pCO2 POC ABG pO2 ABG Hemoglobin ABG Oxyhemoglobin ABG Sodium ABG Potassium ABG Chloride ABG Glucose Sodium Chloride Carbon Dioxide 39 H D BUN 30 H Creatinine 0.5 L Glucose 193 H POC Glucose 178 H Hemoglobin A1c Lactic Acid Calcium 7.7 L Ferritin Total Bilirubin AST 65 H ALT 132 H Alkaline Phosphatase Lactate Dehydrogenase 288 H C-Reactive Protein 1.40 H Total Protein 5.7 L Albumin 2.4 L Triglycerides Arterial Blood Glucose Arterial Blood Ionized Calcium Ur Specific [place] Vancomycin Trough Coronavirus (PCR) 11/26/20 11/26/20 11/26/20 06:04 08:47 11:20 WBC 12.4 H RBC Hgb Hct Plt Count Lymph % (Auto) [place] % (Auto) Lymph # (Auto) [place] # (Auto) Baso # (Auto) Seg Neutrophils % Seg Neuts % (Manual) 98.0 H Lymphocytes % (Manual) 1.0 L Seg Neutrophils # Seg Neutrophils # Man 12.2 H Lymphocytes # (Manual) 0.1 L D-Dimer ABG pH POC ABG pCO2 75.2 H POC ABG pO2 61.9 L ABG Hemoglobin ABG Oxyhemoglobin 90.3 L ABG Sodium ABG Potassium ABG Chloride ABG Glucose 243 H Sodium Chloride Carbon Dioxide BUN Creatinine Glucose POC Glucose 255 H Hemoglobin A1c Lactic Acid Calcium Ferritin Total Bilirubin AST ALT Alkaline Phosphatase Lactate Dehydrogenase C-Reactive Protein Total Protein Albumin Triglycerides Arterial Blood Glucose 243 H Arterial Blood Ionized Calcium Ur Specific [place] Vancomycin Trough Coronavirus (PCR) 11/26/20 11/26/20 11/26/20 16:20 17:15 23:41 WBC RBC Hgb Hct Plt Count Lymph % (Auto) [place] % (Auto) Lymph # (Auto) [place] # (Auto) Baso # (Auto) Seg Neutrophils % Seg Neuts % (Manual) Lymphocytes % (Manual) Seg Neutrophils # Seg Neutrophils # Man Lymphocytes # (Manual) D-Dimer ABG pH POC ABG pCO2 66.6 H POC ABG pO2 78.1 L ABG Hemoglobin ABG Oxyhemoglobin ABG Sodium ABG Potassium ABG Chloride ABG Glucose 244 H Sodium Chloride Carbon Dioxide BUN Creatinine Glucose POC Glucose 219 H 210 H Hemoglobin A1c Lactic Acid Calcium Ferritin Total Bilirubin AST ALT Alkaline Phosphatase Lactate Dehydrogenase C-Reactive Protein Total Protein Albumin Triglycerides Arterial Blood Glucose 244 H Arterial Blood Ionized Calcium Ur Specific [place] Vancomycin Trough Coronavirus (PCR) 11/27/20 11/27/20 11/27/20 04:46 05:38 06:25 WBC 13.8 H RBC Hgb Hct Plt Count Lymph % (Auto) 2.0 L [place] % (Auto) Lymph # (Auto) 0.3 L [place] # (Auto) Baso # (Auto) Seg Neutrophils % Seg Neuts % (Manual) 96.0 H Lymphocytes % (Manual) Seg Neutrophils # 12.7 H Seg Neutrophils # Man 13.2 H Lymphocytes # (Manual) 0.0 L D-Dimer ABG pH POC ABG pCO2 63.0 H POC ABG pO2 53.6 L ABG Hemoglobin ABG Oxyhemoglobin 87.8 L ABG Sodium 115.4 L ABG Potassium ABG Chloride ABG Glucose 219 H Sodium Chloride Carbon Dioxide BUN Creatinine Glucose POC Glucose 227 H Hemoglobin A1c Lactic Acid Calcium Ferritin Total Bilirubin AST ALT Alkaline Phosphatase Lactate Dehydrogenase C-Reactive Protein Total Protein Albumin Triglycerides Arterial Blood Glucose 219 H Arterial Blood Ionized Calcium Ur Specific [place] Vancomycin Trough Coronavirus (PCR) 11/27/20 11/27/20 11/27/20 06:25 18:05 23:29 WBC RBC Hgb Hct Plt Count Lymph % (Auto) [place] % (Auto) Lymph # (Auto) [place] # (Auto) Baso # (Auto) Seg Neutrophils % Seg Neuts % (Manual) Lymphocytes % (Manual) Seg Neutrophils # Seg Neutrophils # Man Lymphocytes # (Manual) D-Dimer ABG pH POC ABG pCO2 POC ABG pO2 ABG Hemoglobin ABG Oxyhemoglobin ABG Sodium ABG Potassium ABG Chloride ABG Glucose Sodium Chloride Carbon Dioxide 38 H BUN 34 H Creatinine 0.4 L Glucose 243 H POC Glucose 329 H 227 H Hemoglobin A1c Lactic Acid Calcium 7.9 L Ferritin Total Bilirubin AST 50 H ALT 110 H Alkaline Phosphatase Lactate Dehydrogenase C-Reactive Protein Total Protein 6.1 L Albumin 2.4 L Triglycerides Arterial Blood Glucose Arterial Blood Ionized Calcium Ur Specific [place] Vancomycin Trough Coronavirus (PCR) 11/28/20 11/28/20 11/28/20 03:45 03:45 03:46 WBC 12.2 H RBC Hgb Hct Plt Count Lymph % (Auto) [place] % (Auto) Lymph # (Auto) [place] # (Auto) Baso # (Auto) Seg Neutrophils % Seg Neuts % (Manual) 93.0 H Lymphocytes % (Manual) 2.0 L Seg Neutrophils # Seg Neutrophils # Man 11.3 H Lymphocytes # (Manual) 0.2 L D-Dimer ABG pH POC ABG pCO2 68.4 H POC ABG pO2 55.4 L ABG Hemoglobin ABG Oxyhemoglobin ABG Sodium ABG Potassium ABG Chloride ABG Glucose 197 H Sodium Chloride Carbon Dioxide 36 H BUN 37 H Creatinine 0.4 L Glucose 194 H POC Glucose Hemoglobin A1c Lactic Acid Calcium 8.1 L Ferritin Total Bilirubin AST ALT 86 H Alkaline Phosphatase Lactate Dehydrogenase C-Reactive Protein Total Protein 6.0 L Albumin 2.3 L Triglycerides Arterial Blood Glucose 197 H Arterial Blood Ionized Calcium Ur Specific [place] Vancomycin Trough Coronavirus (PCR) 11/28/20 11/28/20 11/29/20 05:24 12:21 04:41 WBC RBC Hgb Hct Plt Count Lymph % (Auto) [place] % (Auto) Lymph # (Auto) [place] # (Auto) Baso # (Auto) Seg Neutrophils % Seg Neuts % (Manual) Lymphocytes % (Manual) Seg Neutrophils # Seg Neutrophils # Man Lymphocytes # (Manual) D-Dimer ABG pH POC ABG pCO2 55.1 H POC ABG pO2 53.6 L ABG Hemoglobin ABG Oxyhemoglobin 87.1 L ABG Sodium 131.2 L ABG Potassium ABG Chloride ABG Glucose 164 H Sodium Chloride Carbon Dioxide BUN Creatinine Glucose POC Glucose 173 H 126 H Hemoglobin A1c Lactic Acid Calcium Ferritin Total Bilirubin AST ALT Alkaline Phosphatase Lactate Dehydrogenase C-Reactive Protein Total Protein Albumin Triglycerides Arterial Blood Glucose 164 H Arterial Blood Ionized Calcium 4.4 L Ur Specific [place] Vancomycin Trough Coronavirus (PCR) 11/29/20 11/29/20 11/29/20 05:29 12:41 13:28 WBC RBC Hgb Hct Plt Count Lymph % (Auto) [place] % (Auto) Lymph # (Auto) [place] # (Auto) Baso # (Auto) Seg Neutrophils % Seg Neuts % (Manual) Lymphocytes % (Manual) Seg Neutrophils # Seg Neutrophils # Man Lymphocytes # (Manual) D-Dimer ABG pH POC ABG pCO2 POC ABG pO2 ABG Hemoglobin ABG Oxyhemoglobin ABG Sodium ABG Potassium ABG Chloride ABG Glucose Sodium Chloride Carbon Dioxide 40 H BUN 32 H Creatinine 0.4 L Glucose 274 H POC Glucose 173 H 257 H Hemoglobin A1c Lactic Acid Calcium 7.2 L Ferritin Total Bilirubin AST 57 H ALT 102 H Alkaline Phosphatase Lactate Dehydrogenase C-Reactive Protein Total Protein 5.7 L Albumin 2.1 L Triglycerides Arterial Blood Glucose Arterial Blood Ionized Calcium Ur Specific [place] Vancomycin Trough Coronavirus (PCR) 11/29/20 11/29/20 11/29/20 15:40 17:36 21:26 WBC RBC Hgb Hct Plt Count Lymph % (Auto) [place] % (Auto) Lymph # (Auto) [place] # (Auto) Baso # (Auto) Seg Neutrophils % Seg Neuts % (Manual) Lymphocytes % (Manual) Seg Neutrophils # Seg Neutrophils # Man Lymphocytes # (Manual) D-Dimer ABG pH POC ABG pCO2 POC ABG pO2 ABG Hemoglobin ABG Oxyhemoglobin ABG Sodium ABG Potassium ABG Chloride ABG Glucose Sodium Chloride Carbon Dioxide BUN Creatinine Glucose POC Glucose 240 H 244 H Hemoglobin A1c Lactic Acid Calcium Ferritin Total Bilirubin AST ALT Alkaline Phosphatase Lactate Dehydrogenase C-Reactive Protein Total Protein Albumin Triglycerides Arterial Blood Glucose Arterial Blood Ionized Calcium Ur Specific [place] Vancomycin Trough 4.0 L Coronavirus (PCR) 11/29/20 11/30/20 11/30/20 23:26 03:30 03:30 WBC RBC Hgb Hct Plt Count Lymph % (Auto) [place] % (Auto) Lymph # (Auto) [place] # (Auto) Baso # (Auto) Seg Neutrophils % Seg Neuts % (Manual) 97.0 H Lymphocytes % (Manual) 1.0 L Seg Neutrophils # Seg Neutrophils # Man 9.9 H Lymphocytes # (Manual) 0.1 L D-Dimer ABG pH POC ABG pCO2 POC ABG pO2 ABG Hemoglobin ABG Oxyhemoglobin ABG Sodium ABG Potassium ABG Chloride ABG Glucose Sodium Chloride Carbon Dioxide 38 H BUN 34 H Creatinine 0.4 L Glucose 305 H POC Glucose 283 H Hemoglobin A1c Lactic Acid Calcium 7.6 L Ferritin Total Bilirubin AST ALT 89 H Alkaline Phosphatase Lactate Dehydrogenase C-Reactive Protein Total Protein 6.0 L Albumin 2.3 L Triglycerides Arterial Blood Glucose Arterial Blood Ionized Calcium Ur Specific [place] Vancomycin Trough Coronavirus (PCR) 11/30/20 11/30/20 11/30/20 03:57 05:22 12:05 WBC RBC Hgb Hct Plt Count Lymph % (Auto) [place] % (Auto) Lymph # (Auto) [place] # (Auto) Baso # (Auto) Seg Neutrophils % Seg Neuts % (Manual) Lymphocytes % (Manual) Seg Neutrophils # Seg Neutrophils # Man Lymphocytes # (Manual) D-Dimer ABG pH POC ABG pCO2 60.8 H POC ABG pO2 51.1 L ABG Hemoglobin ABG Oxyhemoglobin 84.6 L ABG Sodium ABG Potassium ABG Chloride ABG Glucose 315 H Sodium Chloride Carbon Dioxide BUN Creatinine Glucose POC Glucose 295 H 413 H Hemoglobin A1c Lactic Acid Calcium Ferritin Total Bilirubin AST ALT Alkaline Phosphatase Lactate Dehydrogenase C-Reactive Protein Total Protein Albumin Triglycerides Arterial Blood Glucose 315 H Arterial Blood Ionized Calcium 4.5 L Ur Specific [place] Vancomycin Trough Coronavirus (PCR) 11/30/20 11/30/20 12/01/20 17:24 23:25 02:14 WBC RBC Hgb Hct Plt Count Lymph % (Auto) [place] % (Auto) Lymph # (Auto) [place] # (Auto) Baso # (Auto) Seg Neutrophils % Seg Neuts % (Manual) Lymphocytes % (Manual) Seg Neutrophils # Seg Neutrophils # Man Lymphocytes # (Manual) D-Dimer ABG pH 7.278 L POC ABG pCO2 78.1 H POC ABG pO2 79.5 L ABG Hemoglobin 11.6 L ABG Oxyhemoglobin ABG Sodium 134.5 L ABG Potassium 4.6 H ABG Chloride ABG Glucose 286 H Sodium Chloride Carbon Dioxide BUN Creatinine Glucose POC Glucose 305 H 302 H Hemoglobin A1c Lactic Acid Calcium Ferritin Total Bilirubin AST ALT Alkaline Phosphatase Lactate Dehydrogenase C-Reactive Protein Total Protein Albumin Triglycerides Arterial Blood Glucose 286 H Arterial Blood Ionized Calcium Ur Specific [place] Vancomycin Trough Coronavirus (PCR) 12/01/20 12/01/20 12/01/20 03:35 03:35 05:22 WBC 13.4 H RBC 3.54 L Hgb 10.4 L Hct 31.8 L Plt Count Lymph % (Auto) [place] % (Auto) Lymph # (Auto) [place] # (Auto) Baso # (Auto) Seg Neutrophils % Seg Neuts % (Manual) 95.0 H Lymphocytes % (Manual) 3.0 L Seg Neutrophils # Seg Neutrophils # Man 12.7 H Lymphocytes # (Manual) 0.4 L D-Dimer ABG pH POC ABG pCO2 POC ABG pO2 ABG Hemoglobin ABG Oxyhemoglobin ABG Sodium ABG Potassium ABG Chloride ABG Glucose Sodium Chloride Carbon Dioxide 35 H BUN 34 H Creatinine 0.5 L Glucose 279 H POC Glucose 259 H Hemoglobin A1c Lactic Acid Calcium 7.6 L Ferritin Total Bilirubin AST ALT 63 H Alkaline Phosphatase Lactate Dehydrogenase C-Reactive Protein Total Protein 4.8 L Albumin 2.1 L Triglycerides Arterial Blood Glucose Arterial Blood Ionized Calcium Ur Specific [place] Vancomycin Trough Coronavirus (PCR) 12/01/20 12/01/20 12/01/20 12:05 17:40 23:46 WBC RBC Hgb Hct Plt Count Lymph % (Auto) [place] % (Auto) Lymph # (Auto) [place] # (Auto) Baso # (Auto) Seg Neutrophils % Seg Neuts % (Manual) Lymphocytes % (Manual) Seg Neutrophils # Seg Neutrophils # Man Lymphocytes # (Manual) D-Dimer ABG pH POC ABG pCO2 POC ABG pO2 ABG Hemoglobin ABG Oxyhemoglobin ABG Sodium ABG Potassium ABG Chloride ABG Glucose Sodium Chloride Carbon Dioxide BUN Creatinine Glucose POC Glucose 197 H 244 H 284 H Hemoglobin A1c Lactic Acid Calcium Ferritin Total Bilirubin AST ALT Alkaline Phosphatase Lactate Dehydrogenase C-Reactive Protein Total Protein Albumin Triglycerides Arterial Blood Glucose Arterial Blood Ionized Calcium Ur Specific [place] Vancomycin Trough Coronavirus (PCR) 12/02/20 12/02/20 12/02/20 02:14 03:03 04:11 WBC 16.5 H RBC 3.55 L Hgb 10.5 L Hct 31.9 L Plt Count Lymph % (Auto) [place] % (Auto) Lymph # (Auto) [place] # (Auto) Baso # (Auto) Seg Neutrophils % Seg Neuts % (Manual) 90.0 H Lymphocytes % (Manual) 3.0 L Seg Neutrophils # Seg Neutrophils # Man 14.9 H Lymphocytes # (Manual) 0.5 L D-Dimer ABG pH POC ABG pCO2 74.8 H POC ABG pO2 58.9 L ABG Hemoglobin 11.5 L ABG Oxyhemoglobin ABG Sodium ABG Potassium ABG Chloride ABG Glucose 264 H Sodium Chloride Carbon Dioxide 37 H BUN 30 H Creatinine 0.4 L Glucose 245 H POC Glucose Hemoglobin A1c Lactic Acid Calcium 7.5 L Ferritin Total Bilirubin AST ALT Alkaline Phosphatase Lactate Dehydrogenase C-Reactive Protein Total Protein 5.2 L Albumin 2.2 L Triglycerides Arterial Blood Glucose 264 H Arterial Blood Ionized Calcium 4.5 L Ur Specific [place] Vancomycin Trough Coronavirus (PCR) 12/02/20 12/02/20 12/02/20 05:19 11:46 17:52 WBC RBC Hgb Hct Plt Count Lymph % (Auto) [place] % (Auto) Lymph # (Auto) [place] # (Auto) Baso # (Auto) Seg Neutrophils % Seg Neuts % (Manual) Lymphocytes % (Manual) Seg Neutrophils # Seg Neutrophils # Man Lymphocytes # (Manual) D-Dimer ABG pH POC ABG pCO2 POC ABG pO2 ABG Hemoglobin ABG Oxyhemoglobin ABG Sodium ABG Potassium ABG Chloride ABG Glucose Sodium Chloride Carbon Dioxide BUN Creatinine Glucose POC Glucose 238 H 236 H 233 H Hemoglobin A1c Lactic Acid Calcium Ferritin Total Bilirubin AST ALT Alkaline Phosphatase Lactate Dehydrogenase C-Reactive Protein Total Protein Albumin Triglycerides Arterial Blood Glucose Arterial Blood Ionized Calcium Ur Specific [place] Vancomycin Trough Coronavirus (PCR) 12/02/20 12/03/20 12/03/20 23:23 03:21 04:35 WBC RBC Hgb Hct Plt Count 112 L Lymph % (Auto) [place] % (Auto) Lymph # (Auto) [place] # (Auto) Baso # (Auto) Seg Neutrophils % Seg Neuts % (Manual) 93.0 H Lymphocytes % (Manual) 4.0 L Seg Neutrophils # Seg Neutrophils # Man 9.1 H Lymphocytes # (Manual) 0.4 L D-Dimer ABG pH 7.299 L POC ABG pCO2 82.1 H POC ABG pO2 62.4 L ABG Hemoglobin 11.5 L ABG Oxyhemoglobin 89.6 L ABG Sodium 134.3 L ABG Potassium ABG Chloride 95.0 L ABG Glucose 203 H Sodium Chloride Carbon Dioxide BUN Creatinine Glucose POC Glucose 213 H Hemoglobin A1c Lactic Acid Calcium Ferritin Total Bilirubin AST ALT Alkaline Phosphatase Lactate Dehydrogenase C-Reactive Protein Total Protein Albumin Triglycerides Arterial Blood Glucose 203 H Arterial Blood Ionized Calcium 4.5 L Ur Specific [place] Vancomycin Trough Coronavirus (PCR) 12/03/20 12/03/20 12/03/20 04:35 05:42 11:28 WBC RBC Hgb Hct Plt Count Lymph % (Auto) [place] % (Auto) Lymph # (Auto) [place] # (Auto) Baso # (Auto) Seg Neutrophils % Seg Neuts % (Manual) Lymphocytes % (Manual) Seg Neutrophils # Seg Neutrophils # Man Lymphocytes # (Manual) D-Dimer ABG pH POC ABG pCO2 POC ABG pO2 ABG Hemoglobin ABG Oxyhemoglobin ABG Sodium ABG Potassium ABG Chloride ABG Glucose Sodium Chloride 97.8 L Carbon Dioxide 43 H* BUN 25 H Creatinine 0.3 L Glucose 214 H POC Glucose 193 H 211 H Hemoglobin A1c Lactic Acid Calcium 7.7 L Ferritin Total Bilirubin AST ALT 63 H Alkaline Phosphatase 132 H Lactate Dehydrogenase C-Reactive Protein Total Protein 5.1 L Albumin 2.4 L Triglycerides Arterial Blood Glucose Arterial Blood Ionized Calcium Ur Specific [place] Vancomycin Trough Coronavirus (PCR) 12/03/20 12/03/20 12/04/20 17:45 23:57 00:11 WBC RBC Hgb Hct Plt Count Lymph % (Auto) [place] % (Auto) Lymph # (Auto) [place] # (Auto) Baso # (Auto) Seg Neutrophils % Seg Neuts % (Manual) Lymphocytes % (Manual) Seg Neutrophils # Seg Neutrophils # Man Lymphocytes # (Manual) D-Dimer ABG pH POC ABG pCO2 POC ABG pO2 ABG Hemoglobin ABG Oxyhemoglobin ABG Sodium ABG Potassium ABG Chloride ABG Glucose Sodium Chloride Carbon Dioxide BUN Creatinine Glucose POC Glucose 231 H 240 H 239 H Hemoglobin A1c Lactic Acid Calcium Ferritin Total Bilirubin AST ALT Alkaline Phosphatase Lactate Dehydrogenase C-Reactive Protein Total Protein Albumin Triglycerides Arterial Blood Glucose Arterial Blood Ionized Calcium Ur Specific [place] Vancomycin Trough Coronavirus (PCR) 12/04/20 12/04/20 12/04/20 04:00 05:20 05:34 WBC RBC Hgb Hct Plt Count Lymph % (Auto) [place] % (Auto) Lymph # (Auto) [place] # (Auto) Baso # (Auto) Seg Neutrophils % Seg Neuts % (Manual) Lymphocytes % (Manual) Seg Neutrophils # Seg Neutrophils # Man Lymphocytes # (Manual) D-Dimer ABG pH POC ABG pCO2 84.4 H POC ABG pO2 68.0 L ABG Hemoglobin 11.6 L ABG Oxyhemoglobin ABG Sodium 130.9 L ABG Potassium ABG Chloride 90.0 L ABG Glucose 244 H Sodium Chloride Carbon Dioxide BUN Creatinine Glucose POC Glucose 241 H 213 H Hemoglobin A1c Lactic Acid Calcium Ferritin Total Bilirubin AST ALT Alkaline Phosphatase Lactate Dehydrogenase C-Reactive Protein Total Protein Albumin Triglycerides Arterial Blood Glucose 244 H Arterial Blood Ionized Calcium 4.4 L Ur Specific [place] Vancomycin Trough Coronavirus (PCR) 12/04/20 12/04/20 12/04/20 11:36 16:53 23:32 WBC RBC Hgb Hct Plt Count Lymph % (Auto) [place] % (Auto) Lymph # (Auto) [place] # (Auto) Baso # (Auto) Seg Neutrophils % Seg Neuts % (Manual) Lymphocytes % (Manual) Seg Neutrophils # Seg Neutrophils # Man Lymphocytes # (Manual) D-Dimer ABG pH POC ABG pCO2 POC ABG pO2 ABG Hemoglobin ABG Oxyhemoglobin ABG Sodium ABG Potassium ABG Chloride ABG Glucose Sodium Chloride Carbon Dioxide BUN Creatinine Glucose POC Glucose 196 H 127 H 230 H Hemoglobin A1c Lactic Acid Calcium Ferritin Total Bilirubin AST ALT Alkaline Phosphatase Lactate Dehydrogenase C-Reactive Protein Total Protein Albumin Triglycerides Arterial Blood Glucose Arterial Blood Ionized Calcium Ur Specific [place] Vancomycin Trough Coronavirus (PCR) 12/04/20 12/05/20 12/05/20 Unknown 04:16 05:21 WBC RBC Hgb Hct Plt Count Lymph % (Auto) [place] % (Auto) Lymph # (Auto) [place] # (Auto) Baso # (Auto) Seg Neutrophils % Seg Neuts % (Manual) Lymphocytes % (Manual) Seg Neutrophils # Seg Neutrophils # Man Lymphocytes # (Manual) D-Dimer ABG pH POC ABG pCO2 86.7 H POC ABG pO2 58.0 L ABG Hemoglobin 11.6 L ABG Oxyhemoglobin 89 L ABG Sodium 130.1 L ABG Potassium 4.9 H ABG Chloride 89.0 L ABG Glucose 254 H Sodium 136 L Chloride 90.0 L Carbon Dioxide 46 H* BUN 24 H Creatinine 0.3 L Glucose 226 H POC Glucose 213 H Hemoglobin A1c Lactic Acid Calcium 7.6 L Ferritin Total Bilirubin AST 46 H ALT 78 H Alkaline Phosphatase 172 H Lactate Dehydrogenase C-Reactive Protein Total Protein 6.0 L Albumin 2.8 L Triglycerides 156 H Arterial Blood Glucose 254 H Arterial Blood Ionized Calcium 4.4 L Ur Specific [place] Vancomycin Trough Coronavirus (PCR)
[2020-12-05] MEDS: ENOXAPARIN 40 MG/0.4 ML INJ SUB-Q SCH (21:20)
[2020-12-05] MEDS: LIPASE 10,500/PROTEASE 25,000/AMYLASE 43,750 (UNITS) DR CAP FEEDTUBE PRN (23:45)
[2020-12-05] MEDS: SODIUM BICARBONATE 325 MG TAB FEEDTUBE PRN (23:46)
[2020-12-06] MEDS: INSULIN LISPRO 100 UNIT/ML SUB-Q SCH ×4 (00:24→18:35)
[2020-12-06] MEDS: MIDAZOLAM 100 MG in SODIUM CHLORIDE 0.9% 80 ML IV SCH ×2 (04:03→21:52)
[2020-12-06] MEDS: fentaNYL DRIP Premix 2,000 MCG/100 ML BAG IV SCH ×3 (04:04→17:48)
[2020-12-06 04:40] LABS: Hematocrit 32.6 % (35.5-45.6); Hemoglobin 10.8 gm/dl (11.8-15.2); Mean Corpuscular HGB Conc 33 % (32-34); Mean Corpuscular Volume 90 fl (84-94); Platelet Count 164 K/mm3 (140-440); Red Blood Count 3.63 M/mm3 (3.65-5.03); Red Cell Distribution Width 13.9 % (13.2-15.2)
[2020-12-06 05:20] LABS: Alanine Aminotransferase 91 units/L (7-56); Albumin 2.6 g/dL (3.9-5); Blood Urea Nitrogen 23 mg/dL (9-20); Calcium 8.3 mg/dL (8.4-10.2); Hemolysis Index 1
[2020-12-06 05:25] LABS: BUN/Creatinine Ratio 77
[2020-12-06] MEDS: methylPREDNISolone Sod Succinate 40 MG/1 ML INJ IV SCH ×3 (05:42→21:11)
[2020-12-06] MEDS: SENNOSIDES/DOCUSATE SODIUM 8.6/50 MG TAB PO SCH ×2 (09:25→21:12)
[2020-12-06] MEDS: FAMOTIDINE 20 MG/2 ML INJ IV SCH ×2 (09:25→21:11)
[2020-12-06] MEDS: INSULIN GLARGINE 100 UNITS/ML SUB-Q SCH ×2 (09:33→22:15)
--- NOTE | 2020-12-06 09:58 | Progress Note ---
Assessment and Plan Assessment and plan: 59-year-old female presents with shortness of breath cough fever weakness. "1 to 2 days. Patient has severe hypoxia per EMS. Her saturations are in the low 80s. With all oxygen and nonrebreather came down to low 90s. Patient denies any past medical history. Exposure to coronavirus present. Does not have a primary care physician. 2/1: Patient continues on BiPAP throughout the night. Labs are remarkable for hypoxia with improving renal function but lactic acidosis without fever. CTA has been ordered to rule out pulmonary embolism. I agree with increasing enoxaparin to twice daily full dose for empiric treatment of pulmonary embolism. Will obtain ID consultation on further evaluation for possible underlying pneumonia versus COVID-19. We will also obtain echocardiogram for evaluation. Will discontinue fluids at this time. 2/2; Continue supportive care, Patient remains with very guarded prognosis, remains on BiPAP, continues on Remdesivir, and steroids. Will continue antico agulation, unable to get CTA Chest due to patients unstable clinical status. Will adjust insulin for better blood glucose 2/3: Continues on BIPAP, no clear improvement at this time. Will continue richelle roids therapy Remdesivir and also Full anticoagulation at this time. Will update family. Discussed with Dimethylaniline Sulfator Operator. 2/4: Taking a break from the BiPAP on high flow and nonrebreather 100% with saturation of 90% becomes hypoxic with any movement. Dimethylaniline Sulfator Operator input noted will get a dose of Lasix today. Will await a discussion with ID for possibly increasing steroid. I updated Patient's Cousin, Tayla Esquivel who is the emergency swimming pool salesperson. Blood sugar remains fluctuating secondary to steriods, Encouraged Prone positioning. Noted with mild hyponatremia we will continue to monitor and manage 2/5: Continue supportive care wean oxygen as tolerated prognosis remains guarded. Encouraged to progress as tolerated. Awaiting labs today. Discussed with nursing staff and patient at bedside. 2/6: Discontinued Dexamethasone as Solumedrol started secondary to increased oxygen demand. Will give additional insulin for better control. Continue oxygen support patient still on high flow. Prognosis still guarded 2/7: Patient was intubated and placed on mechanical ventilation. Continue current medication. Will check a.m. labs today. Noted still with hypotension. Doubt septic shock at this time as patient has no new fever. Will adjust insulin for better blood sugar control. 11/23: Patient admitted with COVID-19 despite all efforts patient remains severely hypoxic and now is intubated. Dimethylaniline Sulfator Operator input noted. Blood pressure marginal at this time. Very poor prognosis. Continue Solu-Medrol. 11/24. Patient remains very hypoxic. Blood pressure borderline. Plan for initiation of paralytic agents as per map plotter. Patient may need to be transferred if no improvement. 11/26. Off paralytics. Remains intubated. On steroids. Prognosis is poor. 11/27. Chest xray shows pneumomediastinum and subcutaneous emphysema. Surgery consulted. Plan for chest tube placement. Sputum culture grew MRSA. Patient started on vancomycin per ID. 11/28. Right chest tube placed yesterday by surgery. Repeat chest x-ray showed left small pneumothorax. Plan for chest tube placement on the left today. Remains on paralytic agents. 11/29. Remains intubated on vent. Had left chest tube placed yesterday. Vitals reviewed. Critical care following 11/30/ Remains on mechanical ventilation. Worsening hypoxia. Bilateral chest tubes in place. Vitals reviewed. Labs reviewed 12/01: Chest tube and mechanical ventilation remains in place, poor prognosis, FIO2 remains at 90%, adjust insulin for better blood glucose control 12/02: Patient remains on full ventilatory support and steroids, still with worsening leukocytosis ?inflammatory or infectious vs steroids. Continue vancomycin. 12/03; slowly weaning, 12/04: Still on the vent FiO2 down to 65% PEEP remains at 18. Still with poor prognosis. 12/05: Patient continues on full ventilatory support per map plotter PEEP remains at 18. Still with hypercapnic respiratory failure. FiO2 down to 60% this morning. Chest tube to suction still weaning off steroids in the deliberation ongoing for possible a third chest tube as last documentation by surgery shows no plan for it at this time. Continue to manage insulin for better blood sugar control. 12/06: Weaned down to 60%, continue supportive care --Acute respiratory failure with combined hypercapnia and hypoxia 11/17 COVID 19 pneumonia Patient remains fully dependent on mechanical ventilatory support Dimethylaniline Sulfator Operator on board On solumedrol 60 q 6 ID on board Prognosis is poor --Pneumomediastinum, subcutaneous emphysema, small left-sided pneumothorax Right and Left chest tube in place Surgery following --Diabetes Mellitus Continue to adjust Insulin dosage Monitor blood glucose closely --- Covid pneumonia Management as above ---MRSA pneumonia Vancomycin ID on board Plan discussed with nursing staff. Dimethylaniline Sulfator Operator have discussed with the patient's brother. No new updates at this time The high probability of a clinically significant, sudden or life threatening deterioration of the [pulmonary] system(s) required my full and direct attention, intervention and personal management. The aggregate critical care time was [35] minutes. This time is in addition to time spent performing reported procedures but includes the following: [X] Data Review and interpretation [X] Patient assessment and monitoring of vital signs [X] Documentation [X] Medication orders and management History Interval history: Patient remains intubated, sedated, and with bilateral chest tubes. No adverse event reported to me overnight from nursing staff Hospitalist Physical - Physical exam Narrative exam: VITAL SIGNS: Reviewed. GENERAL: The patient appears normally developed, sedated HEAD: No signs of head trauma. EYES: Pupils are equal. EARS: Unable to examine MOUTH: Oropharynx with ET tube in place NECK: No adenopathy, no JVD. CHEST: Chest with diminished breath sounds bilaterally. Chest tubes in place no wheezes, rales, or rhonchi. CARDIAC: Regular rate and rhythm. S1 and S2, without murmurs, gallops, or rubs. VASCULAR: No Edema. Peripheral pulses normal and equal in all extremities. ABDOMEN: Soft, non tender and non distended. No rebound or guarding, and no masses palpated. Bowel Sounds normal. MUSCULOSKELETAL: Good range of motion of all major joints. Extremities without clubbing, cyanosis or edema. NEUROLOGIC EXAM: Sedated no focal sensory or strength deficits. PSYCHIATRIC: Sedated SKIN: detail exam as documented in skin assessment - Constitutional Vitals: Temp Pulse Resp BP Pulse Ox 98.3 F 104 H 29 H 188/94 90 12/06/20 07:17 12/06/20 09:00 12/06/20 09:00 12/06/20 09:00 12/06/20 09:00 General appearance: Present: mild distress, well-nourished HEART Score - HEART Score Troponin: Troponin T < 0.010 ng/mL (0.00-0.029) 11/22/20 Unknown Results - Labs CBC & Chem 7: 12/06/20 04:31 12/06/20 04:31 Labs: Laboratory Last Values WBC 17.0 K/mm3 (4.5-11.0) H 12/06/20 04:31 RBC 3.63 M/mm3 (3.65-5.03) L 12/06/20 04:31 Hgb 10.8 gm/dl (11.8-15.2) L D 12/06/20 04:31 Hct 32.6 % (35.5-45.6) L D 12/06/20 04:31 MCV 90 fl (84-94) 12/06/20 04:31 MCH 30 pg (28-32) 12/06/20 04:31 MCHC 33 % (32-34) 12/06/20 04:31 RDW 13.9 % (13.2-15.2) 12/06/20 04:31 Plt Count 164 K/mm3 (140-440) 12/06/20 04:31 Lymph % (Auto) 2.0 % (13.4-35.0) L 11/27/20 06:25 Walsh % (Auto) 5.2 % (0.0-7.3) 11/27/20 06:25 Eos % (Auto) 0.0 % (0.0-4.3) 11/27/20 06:25 Baso % (Auto) 0.1 % (0.0-1.8) 11/27/20 06:25 Lymph # (Auto) 0.3 K/mm3 (1.2-5.4) L 11/27/20 06:25 Walsh # (Auto) 0.7 K/mm3 (0.0-0.8) 11/27/20 06:25 Eos # (Auto) 0.0 K/mm3 (0.0-0.4) 11/27/20 06:25 Baso # (Auto) 0.0 K/mm3 (0.0-0.1) 11/27/20 06:25 Add Manual Diff Complete 12/03/20 04:35 Total Counted 100 12/03/20 04:35 Seg Neutrophils % Dietitian Consultant 12/03/20 04:35 Seg Neuts % (Manual) 93.0 % (40.0-70.0) H 12/03/20 04:35 Band Neutrophils % 2.0 % 12/02/20 02:14 Lymphocytes % (Manual) 4.0 % (13.4-35.0) L 12/03/20 04:35 Monocytes % (Manual) 3.0 % (0.0-7.3) 12/03/20 04:35 Nucleated RBC % Not Reportable 12/03/20 04:35 Seg Neutrophils # 12.7 K/mm3 (1.8-7.7) H 11/27/20 06:25 Seg Neutrophils # Man 9.1 K/mm3 (1.8-7.7) H 12/03/20 04:35 Band Neutrophils # 0.0 K/mm3 12/03/20 04:35 Lymphocytes # (Manual) 0.4 K/mm3 (1.2-5.4) L 12/03/20 04:35 Abs React Lymphs (Man) 0.0 K/mm3 12/03/20 04:35 Monocytes # (Manual) 0.3 K/mm3 (0.0-0.8) 12/03/20 04:35 Eosinophils # (Manual) 0.0 K/mm3 (0.0-0.4) 12/03/20 04:35 Basophils # (Manual) 0.0 K/mm3 (0.0-0.1) 12/03/20 04:35 Metamyelocytes # 0.0 K/mm3 12/03/20 04:35 Myelocytes # 0.0 K/mm3 12/03/20 04:35 Promyelocytes # 0.0 K/mm3 12/03/20 04:35 Blast Cells # 0.0 K/mm3 12/03/20 04:35 WBC Morphology Not Reportable 12/03/20 04:35 Hypersegmented Neuts Not Reportable 12/03/20 04:35 Hyposegmented Neuts Not Reportable 12/03/20 04:35 Hypogranular Neuts Not Reportable 12/03/20 04:35 Smudge Cells Not Reportable 12/03/20 04:35 Toxic Granulation Not Reportable 12/03/20 04:35 Toxic Vacuolation Not Reportable 12/03/20 04:35 Dohle Bodies Not Reportable 12/03/20 04:35 Pelger-Huet Anomaly Not Reportable 12/03/20 04:35 Tony Rods Not Reportable 12/03/20 04:35 Platelet Estimate Consistent w auto 12/03/20 04:35 Clumped Platelets Not Reportable 12/03/20 04:35 Plt Clumps, EDTA Not Reportable 12/03/20 04:35 Large Platelets Not Reportable 12/03/20 04:35 Giant Platelets Not Reportable 12/03/20 04:35 Platelet Satelliting Not Reportable 12/03/20 04:35 Plt Morphology Comment Not Reportable 12/03/20 04:35 RBC Morphology Not Reportable 12/03/20 04:35 Dimorphic RBCs Not Reportable 12/03/20 04:35 Polychromasia Not Reportable 12/03/20 04:35 Hypochromasia Not Reportable 12/03/20 04:35 Poikilocytosis Not Reportable 12/03/20 04:35 Anisocytosis Not Reportable 12/03/20 04:35 Microcytosis Not Reportable 12/03/20 04:35 Macrocytosis Not Reportable 12/03/20 04:35 Spherocytes Not Reportable 12/03/20 04:35 Pappenheimer Bodies Not Reportable 12/03/20 04:35 Sickle Cells Not Reportable 12/03/20 04:35 Target Cells Not Reportable 12/03/20 04:35 Tear Drop Cells Not Reportable 12/03/20 04:35 Ovalocytes Not Reportable 12/03/20 04:35 Stomatocytes 1+ 12/03/20 04:35 Helmet Cells Not Reportable 12/03/20 04:35 Cabrera-Saranap Bodies Not Reportable 12/03/20 04:35 Clifton Rings Not Reportable 12/03/20 04:35 Henrry Cells Not Reportable 12/03/20 04:35 Bite Cells Not Reportable 12/03/20 04:35 Crenated Cell Not Reportable 12/03/20 04:35 Elliptocytes Not Reportable 12/03/20 04:35 Acanthocytes (Spur) Not Reportable 12/03/20 04:35 Rouleaux Not Reportable 12/03/20 04:35 Hemoglobin C Crystals Not Reportable 12/03/20 04:35 Schistocytes Not Reportable 12/03/20 04:35 Malaria parasites Not Reportable 12/03/20 04:35 Yovani Bodies Not Reportable 12/03/20 04:35 Hem Pathologist Commnt No 12/03/20 04:35 D-Dimer 926.11 ng/mlDDU (0-234) H 11/26/20 06:04 ABG pH 7.343 (7.320-7.450) 12/05/20 04:16 POC ABG pCO2 86.7 mmHg (32.0-48.0) H 12/05/20 04:16 POC ABG pO2 58.0 mmHg (83-108) L 12/05/20 04:16 POC ABG HCO3 46 12/05/20 04:16 POC ABG Base Excess 16.6 12/05/20 04:16 ABG Hemoglobin 11.6 (12.0-17.5) L 12/05/20 04:16 ABG Oxyhemoglobin 89 (94-98) L 12/05/20 04:16 ABG Methemoglobin 0.3 (0.0-1.5) 12/05/20 04:16 ABG Sodium 130.1 mmol/L (136.0-145.0) L 12/05/20 04:16 ABG Potassium 4.9 mmol/L (3.40-4.50) H 12/05/20 04:16 ABG Chloride 89.0 mmol/L (98-107) L 12/05/20 04:16 ABG Glucose 254 mg/dL (65-95) H 12/05/20 04:16 Carboxyhemoglobin 1.3 (0.5-1.5) 12/05/20 04:16 FiO2 60 12/05/20 04:16 Sodium 134 mmol/L (137-145) L 12/06/20 04:31 Potassium 5.1 mmol/L (3.6-5.0) H 12/06/20 04:31 Chloride 88.4 mmol/L (98-107) L 12/06/20 04:31 Carbon Dioxide 47 mmol/L (22-30) H* 12/06/20 04:31 Anion Gap 4 mmol/L 12/06/20 04:31 BUN 23 mg/dL (9-20) H 12/06/20 04:31 Creatinine 0.3 mg/dL (0.8-1.3) L 12/06/20 04:31 Estimated GFR > 60 ml/min 12/06/20 04:31 BUN/Creatinine Ratio 77 % 12/06/20 04:31 Glucose 206 mg/dL (75-100) H 12/06/20 04:31 POC Glucose 186 mg/dL (70-105) H 12/06/20 05:24 Hemoglobin A1c 11.7 % (4-6) H 11/16/20 05:29 Lactic Acid 2.60 mmol/L (0.7-2.0) H* 11/16/20 05:29 Calcium 8.3 mg/dL (8.4-10.2) L 12/06/20 04:31 Phosphorus 2.90 mg/dL (2.5-4.5) 12/04/20 Unknown Magnesium 1.90 mg/dL (1.7-2.3) 12/04/20 Unknown Ferritin 778.8 ng/mL (30.0-300.0) H 11/26/20 04:00 Total Bilirubin 0.30 mg/dL (0.1-1.2) 12/06/20 04:31 AST 48 units/L (5-40) H 12/06/20 04:31 ALT 91 units/L (7-56) H 12/06/20 04:31 Alkaline Phosphatase 140 units/L (35-129) H 12/06/20 04:31 Lactate Dehydrogenase 288 units/L (91-180) H 11/26/20 04:00 Troponin T < 0.010 ng/mL (0.00-0.029) 11/22/20 Unknown C-Reactive Protein 1.40 mg/dL (0.00-1.30) H 11/26/20 04:00 NT-Pro-B Natriuret Pep 107.2 pg/mL (0-900) 11/17/20 10:21 Total Protein 5.7 g/dL (6.3-8.2) L 12/06/20 04:31 Albumin 2.6 g/dL (3.9-5) L 12/06/20 04:31 Albumin/Globulin Ratio 0.8 % 12/06/20 04:31 Triglycerides 156 mg/dL (2-149) H 12/04/20 Unknown Procalcitonin 0.51 ng/mL (<0.15) 11/15/20 10:39 Arterial Blood Glucose 254 mg/dL (65-95) H 12/05/20 04:16 Arterial Blood Ionized Calcium 4.4 mg/dL (4.6-5.3) L 12/05/20 04:16 Urine Color Faustina (Yellow) 11/16/20 01:45 Urine Turbidity Slightly-cloudy (Clear) 11/16/20 01:45 Urine pH 6.0 (5.0-7.0) 11/16/20 01:45 Ur Specific Elizabeth 1.037 (1.003-1.030) H 11/16/20 01:45 Urine Protein 30 mg/dl mg/dL (Negative) 11/16/20 01:45 Urine Glucose (UA) >=500 mg/dL (Negative) 11/16/20 01:45 Urine Ketones 20 mg/dL (Negative) 11/16/20 01:45 Urine Blood Neg (Negative) 11/16/20 01:45 Urine Nitrite Neg (Negative) 11/16/20 01:45 Urine Bilirubin Neg (Negative) 11/16/20 01:45 Urine Urobilinogen 2.0 mg/dL (<2.0) 11/16/20 01:45 Ur Leukocyte Esterase Neg (Negative) 11/16/20 01:45 Urine WBC (Auto) 2.0 /HPF (0.0-6.0) 11/16/20 01:45 Urine RBC (Auto) 1.0 /HPF (0.0-6.0) 11/16/20 01:45 Urine Bacteria (Auto) 1+ /HPF (Negative) 11/16/20 01:45 Urine Mucus 3+ /HPF 11/16/20 01:45 Vancomycin Trough 4.0 ug/mL (5.0-20.0) L 11/29/20 15:40 Coronavirus (PCR) Positive (Negative) A 11/16/20 Unknown - Diagnostic Impressions Diagnostic Impressions: Echocardiogram 11/16/20 10:34 Transthoracic Echocardiogram Indication: Shortness of breath-COVID BP: 108/77 HR: 92 Conclusions *Global left ventricular systolic function is normal. *The estimated ejection fraction is 60-65%. *Mild to moderate concentric left ventricular hypertrophy is observed. *There is trace of mitral regurgitation. *There is mild to moderate tricuspid regurgitation. *There is evidence of mild pulmonary hypertension. *The right ventricular systolic pressure is calculated at 31 mmHg. Findings Left Ventricle: The left ventricular chamber size is normal. Mild to moderate concentric left ventricular hypertrophy is observed. Global left ventricular systolic function is normal. The estimated ejection fraction is 60-65%. Left Atrium: The left atrial chamber size is normal. Right Ventricle: The right ventricular cavity size is normal. The right ventricular global systolic function is normal. Right Atrium: The right atrial cavity size is normal. Aortic Valve: The aortic valve is trileaflet. There is no evidence of aortic regurgitation. There is no evidence of aortic stenosis. Mitral Valve: The mitral valve leaflets appear normal. There is trace of mitral regurgitation. There is no evidence of mitral stenosis. Tricuspid Valve: The tricuspid valve leaflets are normal. There is mild to moderate tricuspid regurgitation. The right ventricular systolic pressure is calculated at 31 mmHg. There is evidence of mild pulmonary hypertension. Pulmonic Valve: There is trace pulmonic regurgitation. Pericardium: There is no pericardial effusion. Aorta: There is no dilatation of the ascending aorta. There is no dilatation of the aortic root. Venous: The inferior vena cava appears normal in size. Measurements Chambers 2D Name Value Normal Range IVSd (2D) 0.81 cm (0.6 - 1.1) LVPWd (2D) 0.79 cm (0.6 - 1.1) LVIDd (2D) 4.22 cm (3.7 - 5.6) LVIDs (2D) 3.1 cm (2 - 3.8) LV FS (2D) 26.71 % - EF Teichholz (2D) 52.55 % - Ao root diameter (2D) 3.34 cm (2 - 3.7) Volumes/Mass Name Value Normal Range LA ESV SP 4CH (A/L) 10.87 ml - LA ESV SP 2CH (A/L) 18.74 ml - LA ESV BP (A/L) 16.38 ml - LA ESV BP (A/L) index 8.62 ml/m2 - LA ESV SP 4CH (MOD) 10.32 ml - LA ESV SP 2CH (MOD) 17.66 ml - LA ESV BP (MOD) 15.12 ml - LA ESV BP (MOD) index 7.96 ml/m2 - Diastolic/Systolic Function Name Value Normal Range MV E-wave Vmax 0.76 m/sec - MV deceleration time 133.63 msec - MV A-wave Vmax 1.1 m/sec - MV E:A ratio 0.69 ratio - Aortic Valve Name Value Normal Range AV Vmax 1.44 m/sec - AV VTI 22.94 cm - AV peak gradient 8.33 mmHg - AV mean gradient 4.73 mmHg - LVOT diameter 2.2 cm - LVOT Vmax 1.04 m/sec - LVOT VTI 18.88 cm - LVOT peak gradient 4.34 mmHg - LVOT mean gradient 2.31 mmHg - SV LVOT 72.05 ml - EVANGELISTA (continuity Vmax) 2.75 cm2 - EVANGELISTA (continuity VTI) 3.14 cm2 - Tricuspid Valve Name Value Normal Range TR Vmax 2.64 m/sec - TR peak gradient 28 mmHg - RAP 3 mmHg - RVSP 31 mmHg - Gupta/IV: Voiding Method Indwelling Catheter IV Catheter Type [Left Peripheral IV Antecubital] Active Medications - Current Medications Current Medications: Generic Name Dose Route Start Last Admin Trade Name Freq PRN Reason Stop Dose Admin Acetaminophen 650 mg 11/15/20 23:55 11/18/20 22:19 Acetaminophen 325 Mg Tab PO 650 mg Q4H PRN Administration Pain MILD(1-3)/Fever >100.5/BUTTS Lipase/Protease/Amylase 1 each 11/23/20 11:53 12/05/20 23:45 Lipase 10,500/Protease 25,000/Amylase 43,750 (Units) Dr Cap FEEDTUBE 1 each PRN PRN Administration For Clogged Feeding Tube Enoxaparin Sodium 40 mg 12/03/20 22:00 12/05/20 21:20 Enoxaparin 40 Mg/0.4 Ml Inj SUB-Q 40 mg QDAY@2200 RAEANN Administration Famotidine 20 mg 11/22/20 22:00 12/06/20 09:25 Famotidine 20 Mg/2 Ml Inj IV 20 mg BID RAEANN Administration Fentanyl 50 mcg 11/21/20 21:53 Fentanyl 100 Mcg/2 Ml Inj IV Q10MIN PRN ANALGESIA Hydrophilic Ointment 1 applic 11/21/20 21:53 11/30/20 21:33 Lip Therapy Vaseline TP 1 applic Q2HR PRN Administration Dry Lips Fentanyl Citrate 2,000 mcg in 100 mls @ 3.625 mls/hr 11/21/20 22:00 12/06/20 04:04 Fentanyl Drip Premix IV 4 mcg/kg/hr TITR RAEANN 14.5 mls/hr Administration Protocol 1 MCG/KG/HR Midazolam HCl 100 mg/ Sodium 100 mls @ 2 mls/hr 11/21/20 22:00 12/06/20 04:03 Chloride IV 5 mg/hr TITR RAEANN 5 mls/hr Administration Protocol 2 MG/HR Norepinephrine 4 mg in 250 mls @ 7.5 mls/hr 11/22/20 17:00 Levophed Drip 4 Mg/Ns 250 Ml IV TITR RAEANN Protocol 2 MCG/MIN Propofol 1,000 mg in 100 mls @ 2.175 mls/hr 11/27/20 12:00 12/06/20 09:33 Diprivan 10 Mg/Ml IV 25 mcg/kg/min TITR RAEANN 10.875 mls/hr Titration Protocol 5 MCG/KG/MIN Insulin Glargine 30 units 12/02/20 09:00 12/06/20 09:33 Insulin Glargine 100 Units/Ml SUB-Q 30 units 0800,2200 [facility] Administration Insulin Human Lispro 0 unit 11/22/20 06:00 12/06/20 05:42 Insulin Lispro 100 Unit/Ml SUB-Q 3 unit Q6HR [facility] Administration Protocol Methylprednisolone Sodium Succinate 40 mg 12/03/20 14:00 12/06/20 05:42 Methylprednisolone Sod Succinate 40 Mg/1 Ml Inj IV 40 mg Q8HR RAEANN Administration Metoclopramide HCl 10 mg 11/15/20 23:55 Metoclopramide 10 Mg/2 Ml Inj IV Q6H PRN Nausea And Vomiting Midazolam HCl 2 mg 11/21/20 21:53 12/03/20 20:13 Midazolam 2 Mg/2 Ml Inj IV 2 mg Q10MIN PRN Administration Sedation Multi-Ingred Cream/Lotion/Oil/Oint 1 applic 11/21/20 21:53 Mineral Oil/Petrolatum, White Ophth Oint 3.5 Gm OU Q4HR PRN Dry Eye(s) Ondansetron HCl 4 mg 11/15/20 23:55 Ondansetron 4 Mg/2 Ml Inj IV Q8H PRN Nausea And Vomiting Senna/Docusate Sodium 2 tab 12/03/20 13:00 12/06/20 09:25 Sennosides/Docusate Sodium 8.6/50 Mg Tab PO 2 tab BID RAEANN Administration Simple Syrup 15 ml 11/23/20 11:53 Simple Syrup 15 Ml FEEDTUBE PRN PRN Hypoglycemia Simple Syrup 30 ml 11/23/20 11:53 Simple Syrup 15 Ml FEEDTUBE PRN PRN Hypoglycemia Sodium Bicarbonate 325 mg 11/23/20 11:53 12/05/20 23:46 Sodium Bicarbonate 325 Mg Tab FEEDTUBE 325 mg PRN PRN Administration For Clogged Feeding Tube Sodium Chloride 10 ml 11/16/20 10:00 12/06/20 09:25 Sodium Chloride 0.9% 10 Ml Flush Syringe IV 10 ml BID RAEANN Administration Sodium Chloride 10 ml 11/15/20 23:55 12/03/20 00:21 Sodium Chloride 0.9% 10 Ml Flush Syringe IV 10 ml PRN PRN Administration LINE FLUSH Nutrition/Malnutrition Assess - Dietary Evaluation Nutrition/Malnutrition Findings: Nutrition Notes Start: 11/20/20 12:03 Freq: Status: Active Protocol: Document 12/03/20 12:41 AL (Rec: 12/03/20 13:01 AL [id number]) Co-Sign 12/03/20 12:41 MK Nutrition Notes Initial or Follow up Reassessment Current Diagnosis Diabetes,Sepsis,Respiratory Failure Other Pertinent Diagnosis Bilat pneu, COVID-19 (+) Current Diet Glucerna at 60 ml/hr Labs/Tests POC BG 211 BUN 25 Cr .3 Pertinent Medications Solumedrol Propofol 8.7 ml/hr Humalog Lantus Height 5 ft 6 in Weight 83.5 kg Usual Body Weight 80.5 kg [place] Body Weight (kg) 64.54 BMI 29.7 Weight Status Overweight Subjective/Other Information F/U for TF tolerance. Pt tolerating Glucerna at 60 ml/ hr. Pt w/o BM since 11/21. MD to start bowel regimen Percent of energy/protein needs met: 100%/100% Burn Absent Trauma Absent GI Symptoms Last BM Difficulty In Swallowing,Chewing Food Allergy No Current % PO Negligible Minimum of two criteria Yes Energy Intake (severe) < or equal to 50% Estimated Energy Requirement > or equal to 5 days Interpretation of Weight Loss (severe) >2% in 1 week Fluid Accumulation Moderate to Severe (severe) #3 Nutrition Diagnosis Inadequate oral intake Diagnosis Progress(for reassessment Continues documentation) #2 Nutrition Diagnosis Malnutrition Diagnosis Progress(for reassessment Continues documentation) #1 Nutrition Diagnosis Unintended weight loss Diagnosis Progress(for reassessment Continues documentation) Is patient on ventilator? Yes Is Patient Ambulatory and/or Out of Bed No REE-(Buchanan-[facility] Jemi-confined to bed) 1921.872 Kcal/Kg value to use for calculation 21 Approximate Energy Requirements Using 1754 kcal/Kg Calculation Used for Recommendations Kcal/kg Additional Notes Protein: 87-145 g/day (1.2-2g/ kg) Fluid: 1ml/kcal or per MD Nutrition Intervention Change Diet Order: Continue TF Nutrition Support: Glucerna 1.2 at 60 ml/hr. Flush 100 ml q4h Kcal 1,728 Protein (gm) 86 Fluid (mL) 1,159 Goal #1 TF tolerance Goal #2 Meet at least 75% of energy and protein needs via TF Anticipated Discharge Needs: Unknown at this time Follow-Up By: 12/09/20 Additional Comments F/U for TF tolerance
--- NOTE | 2020-12-06 12:49 | Progress Note ---
Assessment and Plan Cultures: SARS CoV-2 PCR: positive Blood culture: No growth 11/21/2020 tracheal aspirate culture: MRSA A/P: 59-year-old male: #Bilateral pneumonia: secondary to COVID-19. Admission labs showed leukocytosis, D-dimer greater than 10,000, ferritin 672, CRP 19.8, LDH 663, creatinine 0.6, procalcitonin 0.51. Completed 5 days of abx, remdesivir. #MRSA on ET aspirate culture, ?colonization v/s true disease, difficult to differentiate. S/P abx. #Right-sided pneumothorax and pneumomediastinum: Underwent placement of right- sided chest tube, likely secondary to COVID-19. #Acute hypoxic respiratory failure: Failed BiPAP. Remains on the vent. #Elevated d-dimer: DVT scan negative. Unable to get CTA Chest due to patients unstable clinical status #Transaminitis: secondary to COVID-19. Recs: -leucocytosis is probably from steroids (solumedrol) -continue off antibiotics at this time -Continue prophylactic anticoagulation based on d-dimer per hospital protocol -guarded prognosis Dayday Driscoll MD, FACP [facility] ([facility] O: [phone] F: [phone] Subjective Date of service: 12/06/20 Principal diagnosis: COVID-19 Interval history: No fever. Remains on the vent. Objective - Exam Narrative Exam: Physical Exam (reviewed in chart to minimize risk of transmission) Constitutional: deferred Head, Ears, Nose: deferred Eyes: deferred Neck: deferred Oral: deferred Cardiovascular: deferred Respiratory: deferred GI: deferred Musculoskeletal: deferred Skin: deferred Hem/Lymphatic: deferred Psych: deferred Neurological: deferred - Constitutional Vitals: Vital Signs Temp Pulse Resp BP Pulse Ox 98.7 F 91 H 30 H 122/69 94 12/06/20 12:31 12/06/20 12:06 12/06/20 12:06 12/06/20 12:00 12/06/20 12:00 Temperature -Last 24 Hours Temperature 98.7 F Temperature 98.3 F Temperature 98.7 F Temperature 99.3 F Temperature 98.8 F Temperature 98.0 F - Labs CBC & Chem 7: 12/06/20 04:31 12/06/20 04:31 Labs: Abnormal lab results 12/05/20 12/05/20 12/05/20 Range/Units 11:22 17:26 23:38 WBC (4.5-11.0) K/mm3 RBC (3.65-5.03) M/mm3 Hgb (11.8-15.2) gm/dl Hct (35.5-45.6) % POC ABG pCO2 (32.0-48.0) mmHg POC ABG pO2 (83-108) mmHg ABG Sodium (136.0-145.0) mmol/L ABG Potassium (3.40-4.50) mmol/L ABG Chloride (98-107) mmol/L ABG Glucose (65-95) mg/dL Sodium (137-145) mmol/L Potassium (3.6-5.0) mmol/L Chloride (98-107) mmol/L Carbon Dioxide (22-30) mmol/L BUN (9-20) mg/dL Creatinine (0.8-1.3) mg/dL Glucose (75-100) mg/dL POC Glucose 212 H 157 H 204 H (70-105) mg/dL Calcium (8.4-10.2) mg/dL AST (5-40) units/L ALT (7-56) units/L Alkaline Phosphatase (35-129) units/L Total Protein (6.3-8.2) g/dL Albumin (3.9-5) g/dL Arterial Blood Glucose (65-95) mg/dL Arterial Blood Ionized Calcium (4.6-5.3) mg/dL 12/06/20 12/06/20 12/06/20 Range/Units 04:31 04:31 05:12 WBC 17.0 H (4.5-11.0) K/mm3 RBC 3.63 L (3.65-5.03) M/mm3 Hgb 10.8 L D (11.8-15.2) gm/dl Hct 32.6 L D (35.5-45.6) % POC ABG pCO2 85.9 H (32.0-48.0) mmHg POC ABG pO2 57.6 L (83-108) mmHg ABG Sodium 131.2 L (136.0-145.0) mmol/L ABG Potassium 4.8 H (3.40-4.50) mmol/L ABG Chloride 86.0 L (98-107) mmol/L ABG Glucose 200 H (65-95) mg/dL Sodium 134 L (137-145) mmol/L Potassium 5.1 H (3.6-5.0) mmol/L Chloride 88.4 L (98-107) mmol/L Carbon Dioxide 47 H* (22-30) mmol/L BUN 23 H (9-20) mg/dL Creatinine 0.3 L (0.8-1.3) mg/dL Glucose 206 H (75-100) mg/dL POC Glucose (70-105) mg/dL Calcium 8.3 L (8.4-10.2) mg/dL AST 48 H (5-40) units/L ALT 91 H (7-56) units/L Alkaline Phosphatase 140 H (35-129) units/L Total Protein 5.7 L (6.3-8.2) g/dL Albumin 2.6 L (3.9-5) g/dL Arterial Blood Glucose 200 H (65-95) mg/dL Arterial Blood Ionized Calcium 4.4 L (4.6-5.3) mg/dL 12/06/20 12/06/20 Range/Units 05:24 12:18 WBC (4.5-11.0) K/mm3 RBC (3.65-5.03) M/mm3 Hgb (11.8-15.2) gm/dl Hct (35.5-45.6) % POC ABG pCO2 (32.0-48.0) mmHg POC ABG pO2 (83-108) mmHg ABG Sodium (136.0-145.0) mmol/L ABG Potassium (3.40-4.50) mmol/L ABG Chloride (98-107) mmol/L ABG Glucose (65-95) mg/dL Sodium (137-145) mmol/L Potassium (3.6-5.0) mmol/L Chloride (98-107) mmol/L Carbon Dioxide (22-30) mmol/L BUN (9-20) mg/dL Creatinine (0.8-1.3) mg/dL Glucose (75-100) mg/dL POC Glucose 186 H 187 H (70-105) mg/dL Calcium (8.4-10.2) mg/dL AST (5-40) units/L ALT (7-56) units/L Alkaline Phosphatase (35-129) units/L Total Protein (6.3-8.2) g/dL Albumin (3.9-5) g/dL Arterial Blood Glucose (65-95) mg/dL Arterial Blood Ionized Calcium (4.6-5.3) mg/dL
--- NOTE | 2020-12-06 13:21 | Progress Note ---
Assessment and Plan - Patient Problems (1) COVID-19 Current Visit: Yes Status: Acute (2) Acute respiratory failure with hypoxia Current Visit: Yes Status: Acute (3) Bilateral pneumonia Current Visit: Yes Status: Acute Qualifiers: Pneumonia type: due to unspecified organism Lung location: unspecified part of lung Qualified Code(s): J18.9 - Pneumonia, unspecified organism (4) Hyponatremia Current Visit: Yes Status: Acute (5) Hypoxia Current Visit: Yes Status: Acute (6) Pneumothorax Current Visit: Yes Status: Acute (7) Sepsis Current Visit: Yes Status: Acute Subjective Principal diagnosis: COVID-19 Interval history: on vent no signif change Objective Vital Signs - 12hr 12/06/20 12/06/20 12/06/20 02:00 03:00 04:00 Temperature 98.7 F Pulse Rate 97 H 88 98 H Pulse Rate [ 92 H From Monitor] Respiratory 30 H 30 H 30 H Rate Blood Pressure 99/59 112/65 107/62 O2 Sat by Pulse 91 94 93 Oximetry 12/06/20 12/06/20 12/06/20 05:00 05:13 06:01 Temperature Pulse Rate 99 H 95 H 101 H Pulse Rate [ From Monitor] Respiratory 29 H 30 H Rate Blood Pressure 144/83 144/83 107/59 O2 Sat by Pulse 87 92 91 Oximetry 12/06/20 12/06/20 12/06/20 07:00 07:17 08:00 Temperature 98.3 F Pulse Rate 92 H 108 H Pulse Rate [ 101 H From Monitor] Respiratory 30 H 31 H Rate Blood Pressure 105/59 173/91 O2 Sat by Pulse 92 91 Oximetry 12/06/20 12/06/20 12/06/20 09:00 10:00 11:00 Temperature Pulse Rate 104 H 105 H 102 H Pulse Rate [ From Monitor] Respiratory 29 H 20 18 Rate Blood Pressure 188/94 196/84 179/88 O2 Sat by Pulse 90 91 95 Oximetry 12/06/20 12/06/20 12/06/20 11:32 12:00 12:05 Temperature Pulse Rate 97 H 95 H 95 H Pulse Rate [ From Monitor] Respiratory 30 H Rate Blood Pressure 173/82 122/69 O2 Sat by Pulse 95 94 Oximetry 12/06/20 12/06/20 12/06/20 12:06 12:31 13:00 Temperature 98.7 F Pulse Rate 93 H Pulse Rate [ 91 H From Monitor] Respiratory 30 H 30 H Rate Blood Pressure 118/66 O2 Sat by Pulse 95 Oximetry Constitutional: other (on vent orally intubated) ENT: other (Now intubated) Ascultation: Bilateral: rales, rhonchi Percussion: Bilateral: not dull Cardiovascular: regular rate and rhythm Gastrointestinal: soft, non-tender Neurologic: other (on vent) CBC and BMP: 12/06/20 04:31 12/06/20 04:31 ABG, PT/INR, D-dimer: ABG ABG pH 7.335 (7.320-7.450) 12/06/20 05:12 POC ABG pCO2 85.9 mmHg (32.0-48.0) H 12/06/20 05:12 POC ABG pO2 57.6 mmHg (83-108) L 12/06/20 05:12 POC ABG HCO3 44.8 12/06/20 05:12 PT/INR, D-dimer D-Dimer 926.11 ng/mlDDU (0-234) H 11/26/20 06:04 Abnormal lab findings: Abnormal Labs 11/15/20 11/15/20 11/15/20 10:39 10:39 10:39 WBC 14.3 H RBC 5.17 H Hgb Hct Plt Count Lymph % (Auto) 7.8 L [place] % (Auto) 7.6 H Lymph # (Auto) 1.1 L [place] # (Auto) 1.1 H Baso # (Auto) Seg Neutrophils % 83.3 H Seg Neuts % (Manual) Lymphocytes % (Manual) Seg Neutrophils # 11.9 H Seg Neutrophils # Man Lymphocytes # (Manual) D-Dimer ABG pH POC ABG pCO2 POC ABG pO2 ABG Hemoglobin ABG Oxyhemoglobin ABG Sodium ABG Potassium ABG Chloride ABG Glucose Sodium 128 L Potassium Chloride 96.0 L Carbon Dioxide BUN Creatinine 0.7 L Glucose 238 H POC Glucose Hemoglobin A1c Lactic Acid 4.10 H* Calcium 7.0 L Ferritin Total Bilirubin 1.40 H AST 49 H ALT 70 H Alkaline Phosphatase Lactate Dehydrogenase 663 H C-Reactive Protein 19.80 H Total Protein Albumin 2.9 L Triglycerides Arterial Blood Glucose Arterial Blood Ionized Calcium Ur Specific [place] Vancomycin Trough Coronavirus (PCR) 11/15/20 11/15/20 11/15/20 10:39 10:39 11:20 WBC RBC Hgb Hct Plt Count Lymph % (Auto) [place] % (Auto) Lymph # (Auto) [place] # (Auto) Baso # (Auto) Seg Neutrophils % Seg Neuts % (Manual) Lymphocytes % (Manual) Seg Neutrophils # Seg Neutrophils # Man Lymphocytes # (Manual) D-Dimer > 41689 H ABG pH POC ABG pCO2 29.9 L POC ABG pO2 137.3 H ABG Hemoglobin ABG Oxyhemoglobin ABG Sodium 126.5 L ABG Potassium ABG Chloride ABG Glucose 248 H Sodium Potassium Chloride Carbon Dioxide BUN Creatinine Glucose POC Glucose Hemoglobin A1c Lactic Acid Calcium Ferritin 672.8 H Total Bilirubin AST ALT Alkaline Phosphatase Lactate Dehydrogenase C-Reactive Protein Total Protein Albumin Triglycerides Arterial Blood Glucose 248 H Arterial Blood Ionized Calcium 4.1 L Ur Specific [place] Vancomycin Trough Coronavirus (PCR) 11/15/20 11/15/20 11/16/20 13:41 23:41 01:45 WBC RBC Hgb Hct Plt Count Lymph % (Auto) [place] % (Auto) Lymph # (Auto) [place] # (Auto) Baso # (Auto) Seg Neutrophils % Seg Neuts % (Manual) Lymphocytes % (Manual) Seg Neutrophils # Seg Neutrophils # Man Lymphocytes # (Manual) D-Dimer ABG pH POC ABG pCO2 POC ABG pO2 ABG Hemoglobin ABG Oxyhemoglobin ABG Sodium ABG Potassium ABG Chloride ABG Glucose Sodium Potassium Chloride Carbon Dioxide BUN Creatinine Glucose POC Glucose 284 H Hemoglobin A1c Lactic Acid 2.30 H* Calcium Ferritin Total Bilirubin AST ALT Alkaline Phosphatase Lactate Dehydrogenase C-Reactive Protein Total Protein Albumin Triglycerides Arterial Blood Glucose Arterial Blood Ionized Calcium Ur Specific [place] 1.037 H Vancomycin Trough Coronavirus (PCR) 11/16/20 11/16/20 11/16/20 05:29 05:29 05:29 WBC 12.9 H RBC Hgb Hct Plt Count Lymph % (Auto) 4.5 L [place] % (Auto) Lymph # (Auto) 0.6 L [place] # (Auto) Baso # (Auto) 0.2 H Seg Neutrophils % 89.8 H Seg Neuts % (Manual) Lymphocytes % (Manual) Seg Neutrophils # 11.5 H Seg Neutrophils # Man Lymphocytes # (Manual) D-Dimer ABG pH POC ABG pCO2 POC ABG pO2 ABG Hemoglobin ABG Oxyhemoglobin ABG Sodium ABG Potassium ABG Chloride ABG Glucose Sodium 131 L Potassium Chloride Carbon Dioxide 21 L BUN 23 H Creatinine 0.6 L Glucose 342 H POC Glucose Hemoglobin A1c Lactic Acid 2.60 H* Calcium 7.0 L Ferritin Total Bilirubin AST ALT Alkaline Phosphatase Lactate Dehydrogenase C-Reactive Protein Total Protein Albumin 2.4 L Triglycerides Arterial Blood Glucose Arterial Blood Ionized Calcium Ur Specific [place] Vancomycin Trough Coronavirus (PCR) 11/16/20 11/16/20 11/16/20 05:29 08:11 12:11 WBC RBC Hgb Hct Plt Count Lymph % (Auto) [place] % (Auto) Lymph # (Auto) [place] # (Auto) Baso # (Auto) Seg Neutrophils % Seg Neuts % (Manual) Lymphocytes % (Manual) Seg Neutrophils # Seg Neutrophils # Man Lymphocytes # (Manual) D-Dimer ABG pH POC ABG pCO2 POC ABG pO2 ABG Hemoglobin ABG Oxyhemoglobin ABG Sodium ABG Potassium ABG Chloride ABG Glucose Sodium Potassium Chloride Carbon Dioxide BUN Creatinine Glucose POC Glucose 329 H 320 H Hemoglobin A1c 11.7 H Lactic Acid Calcium Ferritin Total Bilirubin AST ALT Alkaline Phosphatase Lactate Dehydrogenase C-Reactive Protein Total Protein Albumin Triglycerides Arterial Blood Glucose Arterial Blood Ionized Calcium Ur Specific [place] Vancomycin Trough Coronavirus (PCR) 11/16/20 11/16/20 11/16/20 16:13 21:29 Unknown WBC RBC Hgb Hct Plt Count Lymph % (Auto) [place] % (Auto) Lymph # (Auto) [place] # (Auto) Baso # (Auto) Seg Neutrophils % Seg Neuts % (Manual) Lymphocytes % (Manual) Seg Neutrophils # Seg Neutrophils # Man Lymphocytes # (Manual) D-Dimer ABG pH POC ABG pCO2 POC ABG pO2 ABG Hemoglobin ABG Oxyhemoglobin ABG Sodium ABG Potassium ABG Chloride ABG Glucose Sodium Potassium Chloride Carbon Dioxide BUN Creatinine Glucose POC Glucose 257 H 376 H Hemoglobin A1c Lactic Acid Calcium Ferritin Total Bilirubin AST ALT Alkaline Phosphatase Lactate Dehydrogenase C-Reactive Protein Total Protein Albumin Triglycerides Arterial Blood Glucose Arterial Blood Ionized Calcium Ur Specific [place] Vancomycin Trough Coronavirus (PCR) Positive A 11/17/20 11/17/20 11/17/20 07:42 12:07 17:25 WBC RBC Hgb Hct Plt Count Lymph % (Auto) [place] % (Auto) Lymph # (Auto) [place] # (Auto) Baso # (Auto) Seg Neutrophils % Seg Neuts % (Manual) Lymphocytes % (Manual) Seg Neutrophils # Seg Neutrophils # Man Lymphocytes # (Manual) D-Dimer ABG pH POC ABG pCO2 POC ABG pO2 ABG Hemoglobin ABG Oxyhemoglobin ABG Sodium ABG Potassium ABG Chloride ABG Glucose Sodium Potassium Chloride Carbon Dioxide BUN Creatinine Glucose POC Glucose 231 H 380 H 302 H Hemoglobin A1c Lactic Acid Calcium Ferritin Total Bilirubin AST ALT Alkaline Phosphatase Lactate Dehydrogenase C-Reactive Protein Total Protein Albumin Triglycerides Arterial Blood Glucose Arterial Blood Ionized Calcium Ur Specific [place] Vancomycin Trough Coronavirus (PCR) 11/17/20 11/18/20 11/18/20 21:53 04:25 07:45 WBC RBC Hgb Hct Plt Count Lymph % (Auto) [place] % (Auto) Lymph # (Auto) [place] # (Auto) Baso # (Auto) Seg Neutrophils % Seg Neuts % (Manual) Lymphocytes % (Manual) Seg Neutrophils # Seg Neutrophils # Man Lymphocytes # (Manual) D-Dimer ABG pH POC ABG pCO2 POC ABG pO2 ABG Hemoglobin ABG Oxyhemoglobin ABG Sodium ABG Potassium ABG Chloride ABG Glucose Sodium 136 L Potassium Chloride Carbon Dioxide BUN 24 H Creatinine 0.6 L Glucose 212 H POC Glucose 293 H 216 H Hemoglobin A1c Lactic Acid Calcium 7.4 L Ferritin Total Bilirubin AST 41 H ALT Alkaline Phosphatase 142 H Lactate Dehydrogenase C-Reactive Protein Total Protein Albumin 2.3 L Triglycerides Arterial Blood Glucose Arterial Blood Ionized Calcium Ur Specific [place] Vancomycin Trough Coronavirus (PCR) 11/18/20 11/18/20 11/18/20 12:28 15:58 21:37 WBC RBC Hgb Hct Plt Count Lymph % (Auto) [place] % (Auto) Lymph # (Auto) [place] # (Auto) Baso # (Auto) Seg Neutrophils % Seg Neuts % (Manual) Lymphocytes % (Manual) Seg Neutrophils # Seg Neutrophils # Man Lymphocytes # (Manual) D-Dimer ABG pH POC ABG pCO2 POC ABG pO2 ABG Hemoglobin ABG Oxyhemoglobin ABG Sodium ABG Potassium ABG Chloride ABG Glucose Sodium Potassium Chloride Carbon Dioxide BUN Creatinine Glucose POC Glucose 165 H 220 H 311 H Hemoglobin A1c Lactic Acid Calcium Ferritin Total Bilirubin AST ALT Alkaline Phosphatase Lactate Dehydrogenase C-Reactive Protein Total Protein Albumin Triglycerides Arterial Blood Glucose Arterial Blood Ionized Calcium Ur Specific [place] Vancomycin Trough Coronavirus (PCR) 11/19/20 11/19/20 11/19/20 05:35 07:40 12:39 WBC RBC Hgb Hct Plt Count Lymph % (Auto) [place] % (Auto) Lymph # (Auto) [place] # (Auto) Baso # (Auto) Seg Neutrophils % Seg Neuts % (Manual) Lymphocytes % (Manual) Seg Neutrophils # Seg Neutrophils # Man Lymphocytes # (Manual) D-Dimer ABG pH POC ABG pCO2 POC ABG pO2 ABG Hemoglobin ABG Oxyhemoglobin ABG Sodium ABG Potassium ABG Chloride ABG Glucose Sodium 132 L Potassium Chloride Carbon Dioxide BUN 25 H Creatinine 0.5 L Glucose 179 H POC Glucose 149 H 306 H Hemoglobin A1c Lactic Acid Calcium 7.5 L Ferritin Total Bilirubin AST ALT Alkaline Phosphatase 139 H Lactate Dehydrogenase C-Reactive Protein Total Protein Albumin 2.4 L Triglycerides Arterial Blood Glucose Arterial Blood Ionized Calcium Ur Specific [place] Vancomycin Trough Coronavirus (PCR) 11/19/20 11/19/20 11/20/20 16:17 21:25 08:30 WBC RBC Hgb Hct Plt Count Lymph % (Auto) [place] % (Auto) Lymph # (Auto) [place] # (Auto) Baso # (Auto) Seg Neutrophils % Seg Neuts % (Manual) Lymphocytes % (Manual) Seg Neutrophils # Seg Neutrophils # Man Lymphocytes # (Manual) D-Dimer ABG pH POC ABG pCO2 POC ABG pO2 ABG Hemoglobin ABG Oxyhemoglobin ABG Sodium ABG Potassium ABG Chloride ABG Glucose Sodium Potassium Chloride Carbon Dioxide BUN Creatinine Glucose POC Glucose 364 H 347 H 141 H Hemoglobin A1c Lactic Acid Calcium Ferritin Total Bilirubin AST ALT Alkaline Phosphatase Lactate Dehydrogenase C-Reactive Protein Total Protein Albumin Triglycerides Arterial Blood Glucose Arterial Blood Ionized Calcium Ur Specific [place] Vancomycin Trough Coronavirus (PCR) 11/20/20 11/20/20 11/20/20 08:50 11:32 16:19 WBC RBC Hgb Hct Plt Count Lymph % (Auto) [place] % (Auto) Lymph # (Auto) [place] # (Auto) Baso # (Auto) Seg Neutrophils % Seg Neuts % (Manual) Lymphocytes % (Manual) Seg Neutrophils # Seg Neutrophils # Man Lymphocytes # (Manual) D-Dimer ABG pH POC ABG pCO2 POC ABG pO2 ABG Hemoglobin ABG Oxyhemoglobin ABG Sodium ABG Potassium ABG Chloride ABG Glucose Sodium 132 L Potassium Chloride 97.6 L Carbon Dioxide BUN 26 H Creatinine 0.5 L Glucose 201 H POC Glucose 296 H 327 H Hemoglobin A1c Lactic Acid Calcium 7.9 L Ferritin Total Bilirubin AST ALT Alkaline Phosphatase 137 H Lactate Dehydrogenase C-Reactive Protein Total Protein Albumin 2.6 L Triglycerides Arterial Blood Glucose Arterial Blood Ionized Calcium Ur Specific [place] Vancomycin Trough Coronavirus (PCR) 11/20/20 11/21/20 11/21/20 22:09 07:59 13:51 WBC RBC Hgb Hct Plt Count Lymph % (Auto) [place] % (Auto) Lymph # (Auto) [place] # (Auto) Baso # (Auto) Seg Neutrophils % Seg Neuts % (Manual) Lymphocytes % (Manual) Seg Neutrophils # Seg Neutrophils # Man Lymphocytes # (Manual) D-Dimer ABG pH POC ABG pCO2 POC ABG pO2 ABG Hemoglobin ABG Oxyhemoglobin ABG Sodium ABG Potassium ABG Chloride ABG Glucose Sodium Potassium Chloride Carbon Dioxide BUN Creatinine Glucose POC Glucose 311 H 218 H 304 H Hemoglobin A1c Lactic Acid Calcium Ferritin Total Bilirubin AST ALT Alkaline Phosphatase Lactate Dehydrogenase C-Reactive Protein Total Protein Albumin Triglycerides Arterial Blood Glucose Arterial Blood Ionized Calcium Ur Specific [place] Vancomycin Trough Coronavirus (PCR) 11/21/20 11/21/20 11/21/20 16:09 21:34 23:00 WBC RBC Hgb Hct Plt Count Lymph % (Auto) [place] % (Auto) Lymph # (Auto) [place] # (Auto) Baso # (Auto) Seg Neutrophils % Seg Neuts % (Manual) Lymphocytes % (Manual) Seg Neutrophils # Seg Neutrophils # Man Lymphocytes # (Manual) D-Dimer ABG pH 7.206 L POC ABG pCO2 59.3 H POC ABG pO2 76.7 L ABG Hemoglobin ABG Oxyhemoglobin ABG Sodium 133.1 L ABG Potassium ABG Chloride ABG Glucose 320 H Sodium Potassium Chloride Carbon Dioxide BUN Creatinine Glucose POC Glucose 239 H 279 H Hemoglobin A1c Lactic Acid Calcium Ferritin Total Bilirubin AST ALT Alkaline Phosphatase Lactate Dehydrogenase C-Reactive Protein Total Protein Albumin Triglycerides Arterial Blood Glucose 320 H Arterial Blood Ionized Calcium Ur Specific [place] Vancomycin Trough Coronavirus (PCR) 11/22/20 11/22/20 11/22/20 04:52 04:52 04:52 WBC RBC Hgb Hct Plt Count Lymph % (Auto) [place] % (Auto) Lymph # (Auto) [place] # (Auto) Baso # (Auto) Seg Neutrophils % Seg Neuts % (Manual) Lymphocytes % (Manual) Seg Neutrophils # Seg Neutrophils # Man Lymphocytes # (Manual) D-Dimer 1858.36 H ABG pH POC ABG pCO2 POC ABG pO2 ABG Hemoglobin ABG Oxyhemoglobin ABG Sodium ABG Potassium ABG Chloride ABG Glucose Sodium Potassium Chloride Carbon Dioxide BUN Creatinine Glucose POC Glucose Hemoglobin A1c Lactic Acid Calcium Ferritin 734.2 H Total Bilirubin AST ALT Alkaline Phosphatase Lactate Dehydrogenase 404 H C-Reactive Protein 2.80 H Total Protein Albumin Triglycerides Arterial Blood Glucose Arterial Blood Ionized Calcium Ur Specific [place] Vancomycin Trough Coronavirus (PCR) 11/22/20 11/22/20 11/22/20 05:12 05:39 11:50 WBC RBC Hgb Hct Plt Count Lymph % (Auto) [place] % (Auto) Lymph # (Auto) [place] # (Auto) Baso # (Auto) Seg Neutrophils % Seg Neuts % (Manual) Lymphocytes % (Manual) Seg Neutrophils # Seg Neutrophils # Man Lymphocytes # (Manual) D-Dimer ABG pH POC ABG pCO2 POC ABG pO2 51.0 L ABG Hemoglobin ABG Oxyhemoglobin ABG Sodium 131.2 L ABG Potassium 4.6 H ABG Chloride ABG Glucose 317 H Sodium Potassium Chloride Carbon Dioxide BUN Creatinine Glucose POC Glucose 340 H 417 H Hemoglobin A1c Lactic Acid Calcium Ferritin Total Bilirubin AST ALT Alkaline Phosphatase Lactate Dehydrogenase C-Reactive Protein Total Protein Albumin Triglycerides Arterial Blood Glucose 317 H Arterial Blood Ionized Calcium 4.4 L Ur Specific [place] Vancomycin Trough Coronavirus (PCR) 11/22/20 11/22/20 11/22/20 12:22 12:22 17:10 WBC 14.4 H RBC Hgb Hct Plt Count Lymph % (Auto) [place] % (Auto) Lymph # (Auto) [place] # (Auto) Baso # (Auto) Seg Neutrophils % Seg Neuts % (Manual) 98.0 H Lymphocytes % (Manual) Seg Neutrophils # Seg Neutrophils # Man 14.1 H Lymphocytes # (Manual) 0.0 L D-Dimer ABG pH POC ABG pCO2 POC ABG pO2 ABG Hemoglobin ABG Oxyhemoglobin ABG Sodium ABG Potassium ABG Chloride ABG Glucose Sodium 132 L Potassium Chloride Carbon Dioxide BUN 36 H Creatinine 0.6 L Glucose 219 H POC Glucose 157 H Hemoglobin A1c Lactic Acid Calcium 7.2 L Ferritin Total Bilirubin AST ALT Alkaline Phosphatase Lactate Dehydrogenase C-Reactive Protein Total Protein Albumin Triglycerides Arterial Blood Glucose Arterial Blood Ionized Calcium Ur Specific [place] Vancomycin Trough Coronavirus (PCR) 11/22/20 11/22/20 11/22/20 18:33 21:44 23:47 WBC RBC Hgb Hct Plt Count Lymph % (Auto) [place] % (Auto) Lymph # (Auto) [place] # (Auto) Baso # (Auto) Seg Neutrophils % Seg Neuts % (Manual) Lymphocytes % (Manual) Seg Neutrophils # Seg Neutrophils # Man Lymphocytes # (Manual) D-Dimer ABG pH POC ABG pCO2 POC ABG pO2 60.8 L ABG Hemoglobin ABG Oxyhemoglobin 88.1 L ABG Sodium 135.1 L ABG Potassium ABG Chloride ABG Glucose 141 H Sodium Potassium Chloride Carbon Dioxide BUN Creatinine Glucose POC Glucose 117 H 123 H Hemoglobin A1c Lactic Acid Calcium Ferritin Total Bilirubin AST ALT Alkaline Phosphatase Lactate Dehydrogenase C-Reactive Protein Total Protein Albumin Triglycerides Arterial Blood Glucose 141 H Arterial Blood Ionized Calcium Ur Specific [place] Vancomycin Trough Coronavirus (PCR) 11/23/20 11/23/20 11/23/20 04:00 04:00 05:23 WBC 14.4 H RBC Hgb Hct Plt Count Lymph % (Auto) [place] % (Auto) Lymph # (Auto) [place] # (Auto) Baso # (Auto) Seg Neutrophils % Seg Neuts % (Manual) Lymphocytes % (Manual) Seg Neutrophils # Seg Neutrophils # Man Lymphocytes # (Manual) D-Dimer ABG pH POC ABG pCO2 POC ABG pO2 ABG Hemoglobin ABG Oxyhemoglobin ABG Sodium ABG Potassium ABG Chloride ABG Glucose Sodium 136 L Potassium Chloride Carbon Dioxide BUN 33 H Creatinine 0.6 L Glucose 115 H POC Glucose 173 H Hemoglobin A1c Lactic Acid Calcium 7.1 L Ferritin Total Bilirubin AST 64 H ALT 75 H Alkaline Phosphatase Lactate Dehydrogenase C-Reactive Protein Total Protein 5.9 L D Albumin 2.4 L Triglycerides Arterial Blood Glucose Arterial Blood Ionized Calcium Ur Specific [place] Vancomycin Trough Coronavirus (PCR) 11/23/20 11/23/20 11/23/20 05:40 11:27 17:10 WBC RBC Hgb Hct Plt Count Lymph % (Auto) [place] % (Auto) Lymph # (Auto) [place] # (Auto) Baso # (Auto) Seg Neutrophils % Seg Neuts % (Manual) Lymphocytes % (Manual) Seg Neutrophils # Seg Neutrophils # Man Lymphocytes # (Manual) D-Dimer ABG pH POC ABG pCO2 POC ABG pO2 56.5 L ABG Hemoglobin ABG Oxyhemoglobin ABG Sodium ABG Potassium ABG Chloride 109.0 H ABG Glucose 114 H Sodium Potassium Chloride Carbon Dioxide BUN Creatinine Glucose POC Glucose 114 H 136 H Hemoglobin A1c Lactic Acid Calcium Ferritin Total Bilirubin AST ALT Alkaline Phosphatase Lactate Dehydrogenase C-Reactive Protein Total Protein Albumin Triglycerides Arterial Blood Glucose 114 H Arterial Blood Ionized Calcium 4.5 L Ur Specific [place] Vancomycin Trough Coronavirus (PCR) 11/24/20 11/24/20 11/24/20 05:14 05:14 05:14 WBC RBC Hgb Hct Plt Count Lymph % (Auto) [place] % (Auto) Lymph # (Auto) [place] # (Auto) Baso # (Auto) Seg Neutrophils % Seg Neuts % (Manual) Lymphocytes % (Manual) Seg Neutrophils # Seg Neutrophils # Man Lymphocytes # (Manual) D-Dimer 1433.39 H ABG pH POC ABG pCO2 POC ABG pO2 ABG Hemoglobin ABG Oxyhemoglobin ABG Sodium ABG Potassium ABG Chloride ABG Glucose Sodium Potassium Chloride Carbon Dioxide BUN Creatinine Glucose POC Glucose Hemoglobin A1c Lactic Acid Calcium Ferritin 997.5 H Total Bilirubin AST ALT Alkaline Phosphatase Lactate Dehydrogenase 463 H C-Reactive Protein Total Protein Albumin Triglycerides Arterial Blood Glucose Arterial Blood Ionized Calcium Ur Specific [place] Vancomycin Trough Coronavirus (PCR) 11/24/20 11/24/20 11/24/20 05:31 05:36 12:05 WBC RBC Hgb Hct Plt Count Lymph % (Auto) [place] % (Auto) Lymph # (Auto) [place] # (Auto) Baso # (Auto) Seg Neutrophils % Seg Neuts % (Manual) Lymphocytes % (Manual) Seg Neutrophils # Seg Neutrophils # Man Lymphocytes # (Manual) D-Dimer ABG pH POC ABG pCO2 POC ABG pO2 57.2 L ABG Hemoglobin ABG Oxyhemoglobin ABG Sodium ABG Potassium ABG Chloride ABG Glucose 180 H Sodium Potassium Chloride Carbon Dioxide BUN Creatinine Glucose POC Glucose 199 H 143 H Hemoglobin A1c Lactic Acid Calcium Ferritin Total Bilirubin AST ALT Alkaline Phosphatase Lactate Dehydrogenase C-Reactive Protein Total Protein Albumin Triglycerides Arterial Blood Glucose 180 H Arterial Blood Ionized Calcium 4.5 L Ur Specific [place] Vancomycin Trough Coronavirus (PCR) 11/24/20 11/24/20 11/24/20 12:14 17:47 23:47 WBC RBC Hgb Hct Plt Count Lymph % (Auto) [place] % (Auto) Lymph # (Auto) [place] # (Auto) Baso # (Auto) Seg Neutrophils % Seg Neuts % (Manual) Lymphocytes % (Manual) Seg Neutrophils # Seg Neutrophils # Man Lymphocytes # (Manual) D-Dimer ABG pH 7.261 L POC ABG pCO2 59.7 H POC ABG pO2 75.7 L ABG Hemoglobin ABG Oxyhemoglobin 92.5 L ABG Sodium ABG Potassium ABG Chloride 108.0 H ABG Glucose 150 H Sodium Potassium Chloride Carbon Dioxide BUN Creatinine Glucose POC Glucose 223 H 179 H Hemoglobin A1c Lactic Acid Calcium Ferritin Total Bilirubin AST ALT Alkaline Phosphatase Lactate Dehydrogenase C-Reactive Protein Total Protein Albumin Triglycerides Arterial Blood Glucose 150 H Arterial Blood Ionized Calcium Ur Specific [place] Vancomycin Trough Coronavirus (PCR) 11/25/20 11/25/20 11/25/20 03:29 05:07 05:15 WBC 13.9 H RBC Hgb Hct Plt Count Lymph % (Auto) [place] % (Auto) Lymph # (Auto) [place] # (Auto) Baso # (Auto) Seg Neutrophils % Seg Neuts % (Manual) 97.0 H Lymphocytes % (Manual) Seg Neutrophils # Seg Neutrophils # Man 13.5 H Lymphocytes # (Manual) 0.0 L D-Dimer ABG pH 7.272 L POC ABG pCO2 69.0 H POC ABG pO2 132.9 H ABG Hemoglobin ABG Oxyhemoglobin ABG Sodium ABG Potassium ABG Chloride ABG Glucose 174 H Sodium Potassium Chloride Carbon Dioxide BUN Creatinine Glucose POC Glucose 168 H Hemoglobin A1c Lactic Acid Calcium Ferritin Total Bilirubin AST ALT Alkaline Phosphatase Lactate Dehydrogenase C-Reactive Protein Total Protein Albumin Triglycerides Arterial Blood Glucose 174 H Arterial Blood Ionized Calcium Ur Specific [place] Vancomycin Trough Coronavirus (PCR) 11/25/20 11/25/20 11/25/20 05:15 11:25 17:35 WBC RBC Hgb Hct Plt Count Lymph % (Auto) [place] % (Auto) Lymph # (Auto) [place] # (Auto) Baso # (Auto) Seg Neutrophils % Seg Neuts % (Manual) Lymphocytes % (Manual) Seg Neutrophils # Seg Neutrophils # Man Lymphocytes # (Manual) D-Dimer ABG pH POC ABG pCO2 POC ABG pO2 ABG Hemoglobin ABG Oxyhemoglobin ABG Sodium ABG Potassium ABG Chloride ABG Glucose Sodium Potassium Chloride Carbon Dioxide BUN 29 H Creatinine 0.5 L Glucose 161 H POC Glucose 224 H 228 H Hemoglobin A1c Lactic Acid Calcium 7.8 L Ferritin Total Bilirubin AST 89 H ALT 129 H Alkaline Phosphatase Lactate Dehydrogenase C-Reactive Protein Total Protein 5.8 L Albumin 2.5 L Triglycerides Arterial Blood Glucose Arterial Blood Ionized Calcium Ur Specific [place] Vancomycin Trough Coronavirus (PCR) 11/25/20 11/25/20 11/26/20 20:45 23:28 04:00 WBC RBC Hgb Hct Plt Count Lymph % (Auto) [place] % (Auto) Lymph # (Auto) [place] # (Auto) Baso # (Auto) Seg Neutrophils % Seg Neuts % (Manual) Lymphocytes % (Manual) Seg Neutrophils # Seg Neutrophils # Man Lymphocytes # (Manual) D-Dimer ABG pH POC ABG pCO2 POC ABG pO2 ABG Hemoglobin ABG Oxyhemoglobin ABG Sodium ABG Potassium ABG Chloride ABG Glucose Sodium Potassium Chloride Carbon Dioxide BUN Creatinine Glucose POC Glucose 177 H 243 H Hemoglobin A1c Lactic Acid Calcium Ferritin 778.8 H Total Bilirubin AST ALT Alkaline Phosphatase Lactate Dehydrogenase C-Reactive Protein Total Protein Albumin Triglycerides Arterial Blood Glucose Arterial Blood Ionized Calcium Ur Specific [place] Vancomycin Trough Coronavirus (PCR) 11/26/20 11/26/20 11/26/20 04:00 05:34 06:04 WBC RBC Hgb Hct Plt Count Lymph % (Auto) [place] % (Auto) Lymph # (Auto) [place] # (Auto) Baso # (Auto) Seg Neutrophils % Seg Neuts % (Manual) Lymphocytes % (Manual) Seg Neutrophils # Seg Neutrophils # Man Lymphocytes # (Manual) D-Dimer 926.11 H ABG pH POC ABG pCO2 POC ABG pO2 ABG Hemoglobin ABG Oxyhemoglobin ABG Sodium ABG Potassium ABG Chloride ABG Glucose Sodium Potassium Chloride Carbon Dioxide 39 H D BUN 30 H Creatinine 0.5 L Glucose 193 H POC Glucose 178 H Hemoglobin A1c Lactic Acid Calcium 7.7 L Ferritin Total Bilirubin AST 65 H ALT 132 H Alkaline Phosphatase Lactate Dehydrogenase 288 H C-Reactive Protein 1.40 H Total Protein 5.7 L Albumin 2.4 L Triglycerides Arterial Blood Glucose Arterial Blood Ionized Calcium Ur Specific [place] Vancomycin Trough Coronavirus (PCR) 11/26/20 11/26/20 11/26/20 06:04 08:47 11:20 WBC 12.4 H RBC Hgb Hct Plt Count Lymph % (Auto) [place] % (Auto) Lymph # (Auto) [place] # (Auto) Baso # (Auto) Seg Neutrophils % Seg Neuts % (Manual) 98.0 H Lymphocytes % (Manual) 1.0 L Seg Neutrophils # Seg Neutrophils # Man 12.2 H Lymphocytes # (Manual) 0.1 L D-Dimer ABG pH POC ABG pCO2 75.2 H POC ABG pO2 61.9 L ABG Hemoglobin ABG Oxyhemoglobin 90.3 L ABG Sodium ABG Potassium ABG Chloride ABG Glucose 243 H Sodium Potassium Chloride Carbon Dioxide BUN Creatinine Glucose POC Glucose 255 H Hemoglobin A1c Lactic Acid Calcium Ferritin Total Bilirubin AST ALT Alkaline Phosphatase Lactate Dehydrogenase C-Reactive Protein Total Protein Albumin Triglycerides Arterial Blood Glucose 243 H Arterial Blood Ionized Calcium Ur Specific [place] Vancomycin Trough Coronavirus (PCR) 11/26/20 11/26/20 11/26/20 16:20 17:15 23:41 WBC RBC Hgb Hct Plt Count Lymph % (Auto) [place] % (Auto) Lymph # (Auto) [place] # (Auto) Baso # (Auto) Seg Neutrophils % Seg Neuts % (Manual) Lymphocytes % (Manual) Seg Neutrophils # Seg Neutrophils # Man Lymphocytes # (Manual) D-Dimer ABG pH POC ABG pCO2 66.6 H POC ABG pO2 78.1 L ABG Hemoglobin ABG Oxyhemoglobin ABG Sodium ABG Potassium ABG Chloride ABG Glucose 244 H Sodium Potassium Chloride Carbon Dioxide BUN Creatinine Glucose POC Glucose 219 H 210 H Hemoglobin A1c Lactic Acid Calcium Ferritin Total Bilirubin AST ALT Alkaline Phosphatase Lactate Dehydrogenase C-Reactive Protein Total Protein Albumin Triglycerides Arterial Blood Glucose 244 H Arterial Blood Ionized Calcium Ur Specific [place] Vancomycin Trough Coronavirus (PCR) 11/27/20 11/27/20 11/27/20 04:46 05:38 06:25 WBC 13.8 H RBC Hgb Hct Plt Count Lymph % (Auto) 2.0 L [place] % (Auto) Lymph # (Auto) 0.3 L [place] # (Auto) Baso # (Auto) Seg Neutrophils % Seg Neuts % (Manual) 96.0 H Lymphocytes % (Manual) Seg Neutrophils # 12.7 H Seg Neutrophils # Man 13.2 H Lymphocytes # (Manual) 0.0 L D-Dimer ABG pH POC ABG pCO2 63.0 H POC ABG pO2 53.6 L ABG Hemoglobin ABG Oxyhemoglobin 87.8 L ABG Sodium 115.4 L ABG Potassium ABG Chloride ABG Glucose 219 H Sodium Potassium Chloride Carbon Dioxide BUN Creatinine Glucose POC Glucose 227 H Hemoglobin A1c Lactic Acid Calcium Ferritin Total Bilirubin AST ALT Alkaline Phosphatase Lactate Dehydrogenase C-Reactive Protein Total Protein Albumin Triglycerides Arterial Blood Glucose 219 H Arterial Blood Ionized Calcium Ur Specific [place] Vancomycin Trough Coronavirus (PCR) 11/27/20 11/27/20 11/27/20 06:25 18:05 23:29 WBC RBC Hgb Hct Plt Count Lymph % (Auto) [place] % (Auto) Lymph # (Auto) [place] # (Auto) Baso # (Auto) Seg Neutrophils % Seg Neuts % (Manual) Lymphocytes % (Manual) Seg Neutrophils # Seg Neutrophils # Man Lymphocytes # (Manual) D-Dimer ABG pH POC ABG pCO2 POC ABG pO2 ABG Hemoglobin ABG Oxyhemoglobin ABG Sodium ABG Potassium ABG Chloride ABG Glucose Sodium Potassium Chloride Carbon Dioxide 38 H BUN 34 H Creatinine 0.4 L Glucose 243 H POC Glucose 329 H 227 H Hemoglobin A1c Lactic Acid Calcium 7.9 L Ferritin Total Bilirubin AST 50 H ALT 110 H Alkaline Phosphatase Lactate Dehydrogenase C-Reactive Protein Total Protein 6.1 L Albumin 2.4 L Triglycerides Arterial Blood Glucose Arterial Blood Ionized Calcium Ur Specific [place] Vancomycin Trough Coronavirus (PCR) 11/28/20 11/28/20 11/28/20 03:45 03:45 03:46 WBC 12.2 H RBC Hgb Hct Plt Count Lymph % (Auto) [place] % (Auto) Lymph # (Auto) [place] # (Auto) Baso # (Auto) Seg Neutrophils % Seg Neuts % (Manual) 93.0 H Lymphocytes % (Manual) 2.0 L Seg Neutrophils # Seg Neutrophils # Man 11.3 H Lymphocytes # (Manual) 0.2 L D-Dimer ABG pH POC ABG pCO2 68.4 H POC ABG pO2 55.4 L ABG Hemoglobin ABG Oxyhemoglobin ABG Sodium ABG Potassium ABG Chloride ABG Glucose 197 H Sodium Potassium Chloride Carbon Dioxide 36 H BUN 37 H Creatinine 0.4 L Glucose 194 H POC Glucose Hemoglobin A1c Lactic Acid Calcium 8.1 L Ferritin Total Bilirubin AST ALT 86 H Alkaline Phosphatase Lactate Dehydrogenase C-Reactive Protein Total Protein 6.0 L Albumin 2.3 L Triglycerides Arterial Blood Glucose 197 H Arterial Blood Ionized Calcium Ur Specific [place] Vancomycin Trough Coronavirus (PCR) 11/28/20 11/28/20 11/29/20 05:24 12:21 04:41 WBC RBC Hgb Hct Plt Count Lymph % (Auto) [place] % (Auto) Lymph # (Auto) [place] # (Auto) Baso # (Auto) Seg Neutrophils % Seg Neuts % (Manual) Lymphocytes % (Manual) Seg Neutrophils # Seg Neutrophils # Man Lymphocytes # (Manual) D-Dimer ABG pH POC ABG pCO2 55.1 H POC ABG pO2 53.6 L ABG Hemoglobin ABG Oxyhemoglobin 87.1 L ABG Sodium 131.2 L ABG Potassium ABG Chloride ABG Glucose 164 H Sodium Potassium Chloride Carbon Dioxide BUN Creatinine Glucose POC Glucose 173 H 126 H Hemoglobin A1c Lactic Acid Calcium Ferritin Total Bilirubin AST ALT Alkaline Phosphatase Lactate Dehydrogenase C-Reactive Protein Total Protein Albumin Triglycerides Arterial Blood Glucose 164 H Arterial Blood Ionized Calcium 4.4 L Ur Specific [place] Vancomycin Trough Coronavirus (PCR) 11/29/20 11/29/20 11/29/20 05:29 12:41 13:28 WBC RBC Hgb Hct Plt Count Lymph % (Auto) [place] % (Auto) Lymph # (Auto) [place] # (Auto) Baso # (Auto) Seg Neutrophils % Seg Neuts % (Manual) Lymphocytes % (Manual) Seg Neutrophils # Seg Neutrophils # Man Lymphocytes # (Manual) D-Dimer ABG pH POC ABG pCO2 POC ABG pO2 ABG Hemoglobin ABG Oxyhemoglobin ABG Sodium ABG Potassium ABG Chloride ABG Glucose Sodium Potassium Chloride Carbon Dioxide 40 H BUN 32 H Creatinine 0.4 L Glucose 274 H POC Glucose 173 H 257 H Hemoglobin A1c Lactic Acid Calcium 7.2 L Ferritin Total Bilirubin AST 57 H ALT 102 H Alkaline Phosphatase Lactate Dehydrogenase C-Reactive Protein Total Protein 5.7 L Albumin 2.1 L Triglycerides Arterial Blood Glucose Arterial Blood Ionized Calcium Ur Specific [place] Vancomycin Trough Coronavirus (PCR) 11/29/20 11/29/20 11/29/20 15:40 17:36 21:26 WBC RBC Hgb Hct Plt Count Lymph % (Auto) [place] % (Auto) Lymph # (Auto) [place] # (Auto) Baso # (Auto) Seg Neutrophils % Seg Neuts % (Manual) Lymphocytes % (Manual) Seg Neutrophils # Seg Neutrophils # Man Lymphocytes # (Manual) D-Dimer ABG pH POC ABG pCO2 POC ABG pO2 ABG Hemoglobin ABG Oxyhemoglobin ABG Sodium ABG Potassium ABG Chloride ABG Glucose Sodium Potassium Chloride Carbon Dioxide BUN Creatinine Glucose POC Glucose 240 H 244 H Hemoglobin A1c Lactic Acid Calcium Ferritin Total Bilirubin AST ALT Alkaline Phosphatase Lactate Dehydrogenase C-Reactive Protein Total Protein Albumin Triglycerides Arterial Blood Glucose Arterial Blood Ionized Calcium Ur Specific [place] Vancomycin Trough 4.0 L Coronavirus (PCR) 11/29/20 11/30/20 11/30/20 23:26 03:30 03:30 WBC RBC Hgb Hct Plt Count Lymph % (Auto) [place] % (Auto) Lymph # (Auto) [place] # (Auto) Baso # (Auto) Seg Neutrophils % Seg Neuts % (Manual) 97.0 H Lymphocytes % (Manual) 1.0 L Seg Neutrophils # Seg Neutrophils # Man 9.9 H Lymphocytes # (Manual) 0.1 L D-Dimer ABG pH POC ABG pCO2 POC ABG pO2 ABG Hemoglobin ABG Oxyhemoglobin ABG Sodium ABG Potassium ABG Chloride ABG Glucose Sodium Potassium Chloride Carbon Dioxide 38 H BUN 34 H Creatinine 0.4 L Glucose 305 H POC Glucose 283 H Hemoglobin A1c Lactic Acid Calcium 7.6 L Ferritin Total Bilirubin AST ALT 89 H Alkaline Phosphatase Lactate Dehydrogenase C-Reactive Protein Total Protein 6.0 L Albumin 2.3 L Triglycerides Arterial Blood Glucose Arterial Blood Ionized Calcium Ur Specific [place] Vancomycin Trough Coronavirus (PCR) 11/30/20 11/30/20 11/30/20 03:57 05:22 12:05 WBC RBC Hgb Hct Plt Count Lymph % (Auto) [place] % (Auto) Lymph # (Auto) [place] # (Auto) Baso # (Auto) Seg Neutrophils % Seg Neuts % (Manual) Lymphocytes % (Manual) Seg Neutrophils # Seg Neutrophils # Man Lymphocytes # (Manual) D-Dimer ABG pH POC ABG pCO2 60.8 H POC ABG pO2 51.1 L ABG Hemoglobin ABG Oxyhemoglobin 84.6 L ABG Sodium ABG Potassium ABG Chloride ABG Glucose 315 H Sodium Potassium Chloride Carbon Dioxide BUN Creatinine Glucose POC Glucose 295 H 413 H Hemoglobin A1c Lactic Acid Calcium Ferritin Total Bilirubin AST ALT Alkaline Phosphatase Lactate Dehydrogenase C-Reactive Protein Total Protein Albumin Triglycerides Arterial Blood Glucose 315 H Arterial Blood Ionized Calcium 4.5 L Ur Specific [place] Vancomycin Trough Coronavirus (PCR) 11/30/20 11/30/20 12/01/20 17:24 23:25 02:14 WBC RBC Hgb Hct Plt Count Lymph % (Auto) [place] % (Auto) Lymph # (Auto) [place] # (Auto) Baso # (Auto) Seg Neutrophils % Seg Neuts % (Manual) Lymphocytes % (Manual) Seg Neutrophils # Seg Neutrophils # Man Lymphocytes # (Manual) D-Dimer ABG pH 7.278 L POC ABG pCO2 78.1 H POC ABG pO2 79.5 L ABG Hemoglobin 11.6 L ABG Oxyhemoglobin ABG Sodium 134.5 L ABG Potassium 4.6 H ABG Chloride ABG Glucose 286 H Sodium Potassium Chloride Carbon Dioxide BUN Creatinine Glucose POC Glucose 305 H 302 H Hemoglobin A1c Lactic Acid Calcium Ferritin Total Bilirubin AST ALT Alkaline Phosphatase Lactate Dehydrogenase C-Reactive Protein Total Protein Albumin Triglycerides Arterial Blood Glucose 286 H Arterial Blood Ionized Calcium Ur Specific [place] Vancomycin Trough Coronavirus (PCR) 12/01/20 12/01/20 12/01/20 03:35 03:35 05:22 WBC 13.4 H RBC 3.54 L Hgb 10.4 L Hct 31.8 L Plt Count Lymph % (Auto) [place] % (Auto) Lymph # (Auto) [place] # (Auto) Baso # (Auto) Seg Neutrophils % Seg Neuts % (Manual) 95.0 H Lymphocytes % (Manual) 3.0 L Seg Neutrophils # Seg Neutrophils # Man 12.7 H Lymphocytes # (Manual) 0.4 L D-Dimer ABG pH POC ABG pCO2 POC ABG pO2 ABG Hemoglobin ABG Oxyhemoglobin ABG Sodium ABG Potassium ABG Chloride ABG Glucose Sodium Potassium Chloride Carbon Dioxide 35 H BUN 34 H Creatinine 0.5 L Glucose 279 H POC Glucose 259 H Hemoglobin A1c Lactic Acid Calcium 7.6 L Ferritin Total Bilirubin AST ALT 63 H Alkaline Phosphatase Lactate Dehydrogenase C-Reactive Protein Total Protein 4.8 L Albumin 2.1 L Triglycerides Arterial Blood Glucose Arterial Blood Ionized Calcium Ur Specific [place] Vancomycin Trough Coronavirus (PCR) 12/01/20 12/01/20 12/01/20 12:05 17:40 23:46 WBC RBC Hgb Hct Plt Count Lymph % (Auto) [place] % (Auto) Lymph # (Auto) [place] # (Auto) Baso # (Auto) Seg Neutrophils % Seg Neuts % (Manual) Lymphocytes % (Manual) Seg Neutrophils # Seg Neutrophils # Man Lymphocytes # (Manual) D-Dimer ABG pH POC ABG pCO2 POC ABG pO2 ABG Hemoglobin ABG Oxyhemoglobin ABG Sodium ABG Potassium ABG Chloride ABG Glucose Sodium Potassium Chloride Carbon Dioxide BUN Creatinine Glucose POC Glucose 197 H 244 H 284 H Hemoglobin A1c Lactic Acid Calcium Ferritin Total Bilirubin AST ALT Alkaline Phosphatase Lactate Dehydrogenase C-Reactive Protein Total Protein Albumin Triglycerides Arterial Blood Glucose Arterial Blood Ionized Calcium Ur Specific [place] Vancomycin Trough Coronavirus (PCR) 12/02/20 12/02/20 12/02/20 02:14 03:03 04:11 WBC 16.5 H RBC 3.55 L Hgb 10.5 L Hct 31.9 L Plt Count Lymph % (Auto) [place] % (Auto) Lymph # (Auto) [place] # (Auto) Baso # (Auto) Seg Neutrophils % Seg Neuts % (Manual) 90.0 H Lymphocytes % (Manual) 3.0 L Seg Neutrophils # Seg Neutrophils # Man 14.9 H Lymphocytes # (Manual) 0.5 L D-Dimer ABG pH POC ABG pCO2 74.8 H POC ABG pO2 58.9 L ABG Hemoglobin 11.5 L ABG Oxyhemoglobin ABG Sodium ABG Potassium ABG Chloride ABG Glucose 264 H Sodium Potassium Chloride Carbon Dioxide 37 H BUN 30 H Creatinine 0.4 L Glucose 245 H POC Glucose Hemoglobin A1c Lactic Acid Calcium 7.5 L Ferritin Total Bilirubin AST ALT Alkaline Phosphatase Lactate Dehydrogenase C-Reactive Protein Total Protein 5.2 L Albumin 2.2 L Triglycerides Arterial Blood Glucose 264 H Arterial Blood Ionized Calcium 4.5 L Ur Specific [place] Vancomycin Trough Coronavirus (PCR) 12/02/20 12/02/20 12/02/20 05:19 11:46 17:52 WBC RBC Hgb Hct Plt Count Lymph % (Auto) [place] % (Auto) Lymph # (Auto) [place] # (Auto) Baso # (Auto) Seg Neutrophils % Seg Neuts % (Manual) Lymphocytes % (Manual) Seg Neutrophils # Seg Neutrophils # Man Lymphocytes # (Manual) D-Dimer ABG pH POC ABG pCO2 POC ABG pO2 ABG Hemoglobin ABG Oxyhemoglobin ABG Sodium ABG Potassium ABG Chloride ABG Glucose Sodium Potassium Chloride Carbon Dioxide BUN Creatinine Glucose POC Glucose 238 H 236 H 233 H Hemoglobin A1c Lactic Acid Calcium Ferritin Total Bilirubin AST ALT Alkaline Phosphatase Lactate Dehydrogenase C-Reactive Protein Total Protein Albumin Triglycerides Arterial Blood Glucose Arterial Blood Ionized Calcium Ur Specific [place] Vancomycin Trough Coronavirus (PCR) 12/02/20 12/03/20 12/03/20 23:23 03:21 04:35 WBC RBC Hgb Hct Plt Count 112 L Lymph % (Auto) [place] % (Auto) Lymph # (Auto) [place] # (Auto) Baso # (Auto) Seg Neutrophils % Seg Neuts % (Manual) 93.0 H Lymphocytes % (Manual) 4.0 L Seg Neutrophils # Seg Neutrophils # Man 9.1 H Lymphocytes # (Manual) 0.4 L D-Dimer ABG pH 7.299 L POC ABG pCO2 82.1 H POC ABG pO2 62.4 L ABG Hemoglobin 11.5 L ABG Oxyhemoglobin 89.6 L ABG Sodium 134.3 L ABG Potassium ABG Chloride 95.0 L ABG Glucose 203 H Sodium Potassium Chloride Carbon Dioxide BUN Creatinine Glucose POC Glucose 213 H Hemoglobin A1c Lactic Acid Calcium Ferritin Total Bilirubin AST ALT Alkaline Phosphatase Lactate Dehydrogenase C-Reactive Protein Total Protein Albumin Triglycerides Arterial Blood Glucose 203 H Arterial Blood Ionized Calcium 4.5 L Ur Specific [place] Vancomycin Trough Coronavirus (PCR) 12/03/20 12/03/20 12/03/20 04:35 05:42 11:28 WBC RBC Hgb Hct Plt Count Lymph % (Auto) [place] % (Auto) Lymph # (Auto) [place] # (Auto) Baso # (Auto) Seg Neutrophils % Seg Neuts % (Manual) Lymphocytes % (Manual) Seg Neutrophils # Seg Neutrophils # Man Lymphocytes # (Manual) D-Dimer ABG pH POC ABG pCO2 POC ABG pO2 ABG Hemoglobin ABG Oxyhemoglobin ABG Sodium ABG Potassium ABG Chloride ABG Glucose Sodium Potassium Chloride 97.8 L Carbon Dioxide 43 H* BUN 25 H Creatinine 0.3 L Glucose 214 H POC Glucose 193 H 211 H Hemoglobin A1c Lactic Acid Calcium 7.7 L Ferritin Total Bilirubin AST ALT 63 H Alkaline Phosphatase 132 H Lactate Dehydrogenase C-Reactive Protein Total Protein 5.1 L Albumin 2.4 L Triglycerides Arterial Blood Glucose Arterial Blood Ionized Calcium Ur Specific [place] Vancomycin Trough Coronavirus (PCR) 12/03/20 12/03/20 12/04/20 17:45 23:57 00:11 WBC RBC Hgb Hct Plt Count Lymph % (Auto) [place] % (Auto) Lymph # (Auto) [place] # (Auto) Baso # (Auto) Seg Neutrophils % Seg Neuts % (Manual) Lymphocytes % (Manual) Seg Neutrophils # Seg Neutrophils # Man Lymphocytes # (Manual) D-Dimer ABG pH POC ABG pCO2 POC ABG pO2 ABG Hemoglobin ABG Oxyhemoglobin ABG Sodium ABG Potassium ABG Chloride ABG Glucose Sodium Potassium Chloride Carbon Dioxide BUN Creatinine Glucose POC Glucose 231 H 240 H 239 H Hemoglobin A1c Lactic Acid Calcium Ferritin Total Bilirubin AST ALT Alkaline Phosphatase Lactate Dehydrogenase C-Reactive Protein Total Protein Albumin Triglycerides Arterial Blood Glucose Arterial Blood Ionized Calcium Ur Specific [place] Vancomycin Trough Coronavirus (PCR) 12/04/20 12/04/20 12/04/20 04:00 05:20 05:34 WBC RBC Hgb Hct Plt Count Lymph % (Auto) [place] % (Auto) Lymph # (Auto) [place] # (Auto) Baso # (Auto) Seg Neutrophils % Seg Neuts % (Manual) Lymphocytes % (Manual) Seg Neutrophils # Seg Neutrophils # Man Lymphocytes # (Manual) D-Dimer ABG pH POC ABG pCO2 84.4 H POC ABG pO2 68.0 L ABG Hemoglobin 11.6 L ABG Oxyhemoglobin ABG Sodium 130.9 L ABG Potassium ABG Chloride 90.0 L ABG Glucose 244 H Sodium Potassium Chloride Carbon Dioxide BUN Creatinine Glucose POC Glucose 241 H 213 H Hemoglobin A1c Lactic Acid Calcium Ferritin Total Bilirubin AST ALT Alkaline Phosphatase Lactate Dehydrogenase C-Reactive Protein Total Protein Albumin Triglycerides Arterial Blood Glucose 244 H Arterial Blood Ionized Calcium 4.4 L Ur Specific [place] Vancomycin Trough Coronavirus (PCR) 12/04/20 12/04/20 12/04/20 11:36 16:53 23:32 WBC RBC Hgb Hct Plt Count Lymph % (Auto) [place] % (Auto) Lymph # (Auto) [place] # (Auto) Baso # (Auto) Seg Neutrophils % Seg Neuts % (Manual) Lymphocytes % (Manual) Seg Neutrophils # Seg Neutrophils # Man Lymphocytes # (Manual) D-Dimer ABG pH POC ABG pCO2 POC ABG pO2 ABG Hemoglobin ABG Oxyhemoglobin ABG Sodium ABG Potassium ABG Chloride ABG Glucose Sodium Potassium Chloride Carbon Dioxide BUN Creatinine Glucose POC Glucose 196 H 127 H 230 H Hemoglobin A1c Lactic Acid Calcium Ferritin Total Bilirubin AST ALT Alkaline Phosphatase Lactate Dehydrogenase C-Reactive Protein Total Protein Albumin Triglycerides Arterial Blood Glucose Arterial Blood Ionized Calcium Ur Specific [place] Vancomycin Trough Coronavirus (PCR) 12/04/20 12/05/20 12/05/20 Unknown 04:16 05:21 WBC RBC Hgb Hct Plt Count Lymph % (Auto) [place] % (Auto) Lymph # (Auto) [place] # (Auto) Baso # (Auto) Seg Neutrophils % Seg Neuts % (Manual) Lymphocytes % (Manual) Seg Neutrophils # Seg Neutrophils # Man Lymphocytes # (Manual) D-Dimer ABG pH POC ABG pCO2 86.7 H POC ABG pO2 58.0 L ABG Hemoglobin 11.6 L ABG Oxyhemoglobin 89 L ABG Sodium 130.1 L ABG Potassium 4.9 H ABG Chloride 89.0 L ABG Glucose 254 H Sodium 136 L Potassium Chloride 90.0 L Carbon Dioxide 46 H* BUN 24 H Creatinine 0.3 L Glucose 226 H POC Glucose 213 H Hemoglobin A1c Lactic Acid Calcium 7.6 L Ferritin Total Bilirubin AST 46 H ALT 78 H Alkaline Phosphatase 172 H Lactate Dehydrogenase C-Reactive Protein Total Protein 6.0 L Albumin 2.8 L Triglycerides 156 H Arterial Blood Glucose 254 H Arterial Blood Ionized Calcium 4.4 L Ur Specific [place] Vancomycin Trough Coronavirus (PCR) 12/05/20 12/05/20 12/05/20 11:22 17:26 23:38 WBC RBC Hgb Hct Plt Count Lymph % (Auto) [place] % (Auto) Lymph # (Auto) [place] # (Auto) Baso # (Auto) Seg Neutrophils % Seg Neuts % (Manual) Lymphocytes % (Manual) Seg Neutrophils # Seg Neutrophils # Man Lymphocytes # (Manual) D-Dimer ABG pH POC ABG pCO2 POC ABG pO2 ABG Hemoglobin ABG Oxyhemoglobin ABG Sodium ABG Potassium ABG Chloride ABG Glucose Sodium Potassium Chloride Carbon Dioxide BUN Creatinine Glucose POC Glucose 212 H 157 H 204 H Hemoglobin A1c Lactic Acid Calcium Ferritin Total Bilirubin AST ALT Alkaline Phosphatase Lactate Dehydrogenase C-Reactive Protein Total Protein Albumin Triglycerides Arterial Blood Glucose Arterial Blood Ionized Calcium Ur Specific [place] Vancomycin Trough Coronavirus (PCR) 12/06/20 12/06/20 12/06/20 04:31 04:31 05:12 WBC 17.0 H RBC 3.63 L Hgb 10.8 L D Hct 32.6 L D Plt Count Lymph % (Auto) [place] % (Auto) Lymph # (Auto) [place] # (Auto) Baso # (Auto) Seg Neutrophils % Seg Neuts % (Manual) Lymphocytes % (Manual) Seg Neutrophils # Seg Neutrophils # Man Lymphocytes # (Manual) D-Dimer ABG pH POC ABG pCO2 85.9 H POC ABG pO2 57.6 L ABG Hemoglobin ABG Oxyhemoglobin ABG Sodium 131.2 L ABG Potassium 4.8 H ABG Chloride 86.0 L ABG Glucose 200 H Sodium 134 L Potassium 5.1 H Chloride 88.4 L Carbon Dioxide 47 H* BUN 23 H Creatinine 0.3 L Glucose 206 H POC Glucose Hemoglobin A1c Lactic Acid Calcium 8.3 L Ferritin Total Bilirubin AST 48 H ALT 91 H Alkaline Phosphatase 140 H Lactate Dehydrogenase C-Reactive Protein Total Protein 5.7 L Albumin 2.6 L Triglycerides Arterial Blood Glucose 200 H Arterial Blood Ionized Calcium 4.4 L Ur Specific [place] Vancomycin Trough Coronavirus (PCR) 12/06/20 12/06/20 05:24 12:18 WBC RBC Hgb Hct Plt Count Lymph % (Auto) [place] % (Auto) Lymph # (Auto) [place] # (Auto) Baso # (Auto) Seg Neutrophils % Seg Neuts % (Manual) Lymphocytes % (Manual) Seg Neutrophils # Seg Neutrophils # Man Lymphocytes # (Manual) D-Dimer ABG pH POC ABG pCO2 POC ABG pO2 ABG Hemoglobin ABG Oxyhemoglobin ABG Sodium ABG Potassium ABG Chloride ABG Glucose Sodium Potassium Chloride Carbon Dioxide BUN Creatinine Glucose POC Glucose 186 H 187 H Hemoglobin A1c Lactic Acid Calcium Ferritin Total Bilirubin AST ALT Alkaline Phosphatase Lactate Dehydrogenase C-Reactive Protein Total Protein Albumin Triglycerides Arterial Blood Glucose Arterial Blood Ionized Calcium Ur Specific [place] Vancomycin Trough Coronavirus (PCR)
[2020-12-06] MEDS: ENOXAPARIN 40 MG/0.4 ML INJ SUB-Q SCH (21:11)
[2020-12-07] MEDS: INSULIN LISPRO 100 UNIT/ML SUB-Q SCH ×4 (00:21→17:39)
--- NOTE | 2020-12-07 03:43 | XRay Report ---
XR chest 1V ap INDICATION / CLINICAL INFORMATION: ptx on vent. COMPARISON: 12/04/2020 FINDINGS: SUPPORT DEVICES: Right upper extremity PICC terminates near the lower SVC. Otherwise unchanged, to in clude bilateral thoracostomy tubes. HEART /PULMONARY VASCULATURE: Pneumomediastinum persists. There is extensive diffuse subcutaneous emp hysema. Heart size is normal. LUNGS / PLEURA: Lung parenchyma is not significant changed. Small bilateral pneumothoraces persist. IMPRESSION: Stable appearance of the chest with small bilateral pneumothoraces with chest tubes in place. Signer Name: Luigi Camacho MD Signed: 12/07/2020 3:38 AM Workstation Name: [id number]
[2020-12-07 06:00] LABS: ABG Base Excess 22.4 mmol/L (-2.0-3.0); ABG HCO3 50.8 mmol/L (20.0-26.0); ABG Methemoglobin 0.5 % (0.0-1.5); ABG Oxygen Saturation 86.2 % (95.0-99.0); ABG PCO2 80.5 mm Hg; ABG PH 7.418 pH Units (7.350-7.450); ABG PO2 48.4 mm Hg (80.0-90.0)
[2020-12-07] MEDS: methylPREDNISolone Sod Succinate 40 MG/1 ML INJ IV SCH ×3 (06:27→21:02)
--- NOTE | 2020-12-07 08:33 | Progress Note ---
Assessment and Plan Assessment and plan: 59-year-old female presents with shortness of breath cough fever weakness. "1 to 2 days. Patient has severe hypoxia per EMS. Her saturations are in the low 80s. With all oxygen and nonrebreather came down to low 90s. Patient denies any past medical history. Exposure to coronavirus present. Does not have a primary care physician. 2/1: Patient continues on BiPAP throughout the night. Labs are remarkable for hypoxia with improving renal function but lactic acidosis without fever. CTA has been ordered to rule out pulmonary embolism. I agree with increasing enoxaparin to twice daily full dose for empiric treatment of pulmonary embolism. Will obtain ID consultation on further evaluation for possible underlying pneumonia versus COVID-19. We will also obtain echocardiogram for evaluation. Will discontinue fluids at this time. 2/2; Continue supportive care, Patient remains with very guarded prognosis, remains on BiPAP, continues on Remdesivir, and steroids. Will continue antico agulation, unable to get CTA Chest due to patients unstable clinical status. Will adjust insulin for better blood glucose 2/3: Continues on BIPAP, no clear improvement at this time. Will continue richelle roids therapy Remdesivir and also Full anticoagulation at this time. Will update family. Discussed with Code And Test Clerk. 2/4: Taking a break from the BiPAP on high flow and nonrebreather 100% with saturation of 90% becomes hypoxic with any movement. Code And Test Clerk input noted will get a dose of Lasix today. Will await a discussion with ID for possibly increasing steroid. I updated Patient's Cousin, Tayla Esquivel who is the emergency tooth cutter contact wheel. Blood sugar remains fluctuating secondary to steriods, Encouraged Prone positioning. Noted with mild hyponatremia we will continue to monitor and manage 2/5: Continue supportive care wean oxygen as tolerated prognosis remains guarded. Encouraged to progress as tolerated. Awaiting labs today. Discussed with nursing staff and patient at bedside. 2/6: Discontinued Dexamethasone as Solumedrol started secondary to increased oxygen demand. Will give additional insulin for better control. Continue oxygen support patient still on high flow. Prognosis still guarded 2/7: Patient was intubated and placed on mechanical ventilation. Continue current medication. Will check a.m. labs today. Noted still with hypotension. Doubt septic shock at this time as patient has no new fever. Will adjust insulin for better blood sugar control. 11/23: Patient admitted with COVID-19 despite all efforts patient remains severely hypoxic and now is intubated. Code And Test Clerk input noted. Blood pressure marginal at this time. Very poor prognosis. Continue Solu-Medrol. 11/24. Patient remains very hypoxic. Blood pressure borderline. Plan for initiation of paralytic agents as per xray tech. Patient may need to be transferred if no improvement. 11/26. Off paralytics. Remains intubated. On steroids. Prognosis is poor. 11/27. Chest xray shows pneumomediastinum and subcutaneous emphysema. Surgery consulted. Plan for chest tube placement. Sputum culture grew MRSA. Patient started on vancomycin per ID. 11/28. Right chest tube placed yesterday by surgery. Repeat chest x-ray showed left small pneumothorax. Plan for chest tube placement on the left today. Remains on paralytic agents. 11/29. Remains intubated on vent. Had left chest tube placed yesterday. Vitals reviewed. Critical care following 11/30/ Remains on mechanical ventilation. Worsening hypoxia. Bilateral chest tubes in place. Vitals reviewed. Labs reviewed 12/01: Chest tube and mechanical ventilation remains in place, poor prognosis, FIO2 remains at 90%, adjust insulin for better blood glucose control 12/02: Patient remains on full ventilatory support and steroids, still with worsening leukocytosis ?inflammatory or infectious vs steroids. Continue vancomycin. 12/03; slowly weaning, 12/04: Still on the vent FiO2 down to 65% PEEP remains at 18. Still with poor prognosis. 12/05: Patient continues on full ventilatory support per xray tech PEEP remains at 18. Still with hypercapnic respiratory failure. FiO2 down to 60% this morning. Chest tube to suction still weaning off steroids in the deliberation ongoing for possible a third chest tube as last documentation by surgery shows no plan for it at this time. Continue to manage insulin for better blood sugar control. 12/06: Weaned down to 60%, continue supportive care 12/07: Patient remains intubated remains with hypercapnia and hypoxia. Chest tube still remain in place. He is off antibiotics at this time. Continue steroids which is likely resultant to the leukocytosis. Code And Test Clerk and surgeon following ID input is noted. Will defer Lasix to xray tech. Prognosis remains guarded to poor --Acute respiratory failure with combined hypercapnia and hypoxia 2/2 COVID 19 pneumonia Patient remains fully dependent on mechanical ventilatory support Code And Test Clerk on board On solumedrol 60 q 6 ID on board Prognosis is poor --Pneumomediastinum, subcutaneous emphysema, small left-sided pneumothorax Right and Left chest tube in place Surgery following -- Leukocytosis --Diabetes Mellitus Continue to adjust Insulin dosage Monitor blood glucose closely --- Covid pneumonia Management as above ---MRSA pneumonia Vancomycin ID on board Plan discussed with nursing staff. Code And Test Clerk have discussed with the patient's brother. No new updates at this time The high probability of a clinically significant, sudden or life threatening deterioration of the [pulmonary] system(s) required my full and direct attention, intervention and personal management. The aggregate critical care time was [35] minutes. This time is in addition to time spent performing reported procedures but includes the following: [X] Data Review and interpretation [X] Patient assessment and monitoring of vital signs [X] Documentation [X] Medication orders and management History Interval history: Patient remains intubated, sedated, and with bilateral chest tubes. No adverse event reported to me overnight from nursing staff Hospitalist Physical - Physical exam Narrative exam: VITAL SIGNS: Reviewed. GENERAL: The patient appears normally developed, sedated, generalized anasarca puffiness of the face HEAD: No signs of head trauma. EYES: Pupils are equal. EARS: Unable to examine MOUTH: Oropharynx with ET tube in place NECK: No adenopathy, no JVD. CHEST: Chest with diminished breath sounds bilaterally. Chest tubes in place no wheezes, rales, or rhonchi. CARDIAC: Regular rate and rhythm. S1 and S2, without murmurs, gallops, or rubs. VASCULAR: No Edema. Peripheral pulses normal and equal in all extremities. ABDOMEN: Soft, non tender and non distended. No rebound or guarding, and no masses palpated. Bowel Sounds normal. MUSCULOSKELETAL: Good range of motion of all major joints. Extremities without clubbing, cyanosis or edema. NEUROLOGIC EXAM: Sedated no focal sensory or strength deficits. PSYCHIATRIC: Sedated SKIN: detail exam as documented in skin assessment - Constitutional Vitals: Temp Pulse Resp BP Pulse Ox 98.1 F 89 30 H 90/55 92 12/07/20 07:24 12/07/20 07:11 12/07/20 07:00 12/07/20 07:11 12/07/20 07:11 General appearance: Present: mild distress, well-nourished HEART Score - HEART Score Troponin: Troponin T < 0.010 ng/mL (0.00-0.029) 11/22/20 Unknown Results - Labs CBC & Chem 7: 12/06/20 04:31 12/06/20 04:31 Labs: Laboratory Last Values WBC 17.0 K/mm3 (4.5-11.0) H 12/06/20 04:31 RBC 3.63 M/mm3 (3.65-5.03) L 12/06/20 04:31 Hgb 10.8 gm/dl (11.8-15.2) L D 12/06/20 04:31 Hct 32.6 % (35.5-45.6) L D 12/06/20 04:31 MCV 90 fl (84-94) 12/06/20 04:31 MCH 30 pg (28-32) 12/06/20 04:31 MCHC 33 % (32-34) 12/06/20 04:31 RDW 13.9 % (13.2-15.2) 12/06/20 04:31 Plt Count 164 K/mm3 (140-440) 12/06/20 04:31 Lymph % (Auto) 2.0 % (13.4-35.0) L 11/27/20 06:25 [place] % (Auto) 5.2 % (0.0-7.3) 11/27/20 06:25 Eos % (Auto) 0.0 % (0.0-4.3) 11/27/20 06:25 Baso % (Auto) 0.1 % (0.0-1.8) 11/27/20 06:25 Lymph # (Auto) 0.3 K/mm3 (1.2-5.4) L 11/27/20 06:25 [place] # (Auto) 0.7 K/mm3 (0.0-0.8) 11/27/20 06:25 Eos # (Auto) 0.0 K/mm3 (0.0-0.4) 11/27/20 06:25 Baso # (Auto) 0.0 K/mm3 (0.0-0.1) 11/27/20 06:25 Add Manual Diff Complete 12/03/20 04:35 Total Counted 100 12/03/20 04:35 Seg Neutrophils % Independent Film Maker 12/03/20 04:35 Seg Neuts % (Manual) 93.0 % (40.0-70.0) H 12/03/20 04:35 Band Neutrophils % 2.0 % 12/02/20 02:14 Lymphocytes % (Manual) 4.0 % (13.4-35.0) L 12/03/20 04:35 Monocytes % (Manual) 3.0 % (0.0-7.3) 12/03/20 04:35 Nucleated RBC % Not Reportable 12/03/20 04:35 Seg Neutrophils # 12.7 K/mm3 (1.8-7.7) H 11/27/20 06:25 Seg Neutrophils # Man 9.1 K/mm3 (1.8-7.7) H 12/03/20 04:35 Band Neutrophils # 0.0 K/mm3 12/03/20 04:35 Lymphocytes # (Manual) 0.4 K/mm3 (1.2-5.4) L 12/03/20 04:35 Abs React Lymphs (Man) 0.0 K/mm3 12/03/20 04:35 Monocytes # (Manual) 0.3 K/mm3 (0.0-0.8) 12/03/20 04:35 Eosinophils # (Manual) 0.0 K/mm3 (0.0-0.4) 12/03/20 04:35 Basophils # (Manual) 0.0 K/mm3 (0.0-0.1) 12/03/20 04:35 Metamyelocytes # 0.0 K/mm3 12/03/20 04:35 Myelocytes # 0.0 K/mm3 12/03/20 04:35 Promyelocytes # 0.0 K/mm3 12/03/20 04:35 Blast Cells # 0.0 K/mm3 12/03/20 04:35 WBC Morphology Not Reportable 12/03/20 04:35 Hypersegmented Neuts Not Reportable 12/03/20 04:35 Hyposegmented Neuts Not Reportable 12/03/20 04:35 Hypogranular Neuts Not Reportable 12/03/20 04:35 Smudge Cells Not Reportable 12/03/20 04:35 Toxic Granulation Not Reportable 12/03/20 04:35 Toxic Vacuolation Not Reportable 12/03/20 04:35 Dohle Bodies Not Reportable 12/03/20 04:35 Pelger-Huet Anomaly Not Reportable 12/03/20 04:35 Tony Rods Not Reportable 12/03/20 04:35 Platelet Estimate Consistent w auto 12/03/20 04:35 Clumped Platelets Not Reportable 12/03/20 04:35 Plt Clumps, EDTA Not Reportable 12/03/20 04:35 Large Platelets Not Reportable 12/03/20 04:35 Giant Platelets Not Reportable 12/03/20 04:35 Platelet Satelliting Not Reportable 12/03/20 04:35 Plt Morphology Comment Not Reportable 12/03/20 04:35 RBC Morphology Not Reportable 12/03/20 04:35 Dimorphic RBCs Not Reportable 12/03/20 04:35 Polychromasia Not Reportable 12/03/20 04:35 Hypochromasia Not Reportable 12/03/20 04:35 Poikilocytosis Not Reportable 12/03/20 04:35 Anisocytosis Not Reportable 12/03/20 04:35 Microcytosis Not Reportable 12/03/20 04:35 Macrocytosis Not Reportable 12/03/20 04:35 Spherocytes Not Reportable 12/03/20 04:35 Pappenheimer Bodies Not Reportable 12/03/20 04:35 Sickle Cells Not Reportable 12/03/20 04:35 Target Cells Not Reportable 12/03/20 04:35 Tear Drop Cells Not Reportable 12/03/20 04:35 Ovalocytes Not Reportable 12/03/20 04:35 Stomatocytes 1+ 12/03/20 04:35 Helmet Cells Not Reportable 12/03/20 04:35 [place] Bodies Not Reportable 12/03/20 04:35 [place] Rings Not Reportable 12/03/20 04:35 [place] Cells Not Reportable 12/03/20 04:35 Bite Cells Not Reportable 12/03/20 04:35 Crenated Cell Not Reportable 12/03/20 04:35 Elliptocytes Not Reportable 12/03/20 04:35 Acanthocytes (Spur) Not Reportable 12/03/20 04:35 Rouleaux Not Reportable 12/03/20 04:35 Hemoglobin C Crystals Not Reportable 12/03/20 04:35 Schistocytes Not Reportable 12/03/20 04:35 Malaria parasites Not Reportable 12/03/20 04:35 [place] Bodies Not Reportable 12/03/20 04:35 Hem Pathologist Commnt No 12/03/20 04:35 D-Dimer 926.11 ng/mlDDU (0-234) H 11/26/20 06:04 ABG pH 7.418 pH Units (7.350-7.450) 12/07/20 05:20 POC ABG pCO2 85.9 mmHg (32.0-48.0) H 12/06/20 05:12 ABG pCO2 80.5 mm Hg 12/07/20 05:20 POC ABG pO2 57.6 mmHg (83-108) L 12/06/20 05:12 ABG pO2 48.4 mm Hg (80.0-90.0) L 12/07/20 05:20 POC ABG HCO3 44.8 12/06/20 05:12 ABG HCO3 50.8 mmol/L (20.0-26.0) H 12/07/20 05:20 ABG O2 Saturation 86.2 % (95.0-99.0) L 12/07/20 05:20 ABG O2 Content 13.0 (0.0-44) 12/07/20 05:20 POC ABG Base Excess 15.1 12/06/20 05:12 ABG Base Excess 22.4 mmol/L (-2.0-3.0) H 12/07/20 05:20 ABG Hemoglobin 11.0 gm/dl (14.0-18.0) L 12/07/20 05:20 ABG Oxyhemoglobin 89 (94-98) L 12/05/20 04:16 ABG Carboxyhemoglobin 2.1 % (0.0-5.0) 12/07/20 05:20 ABG Methemoglobin 0.5 % (0.0-1.5) 12/07/20 05:20 ABG Sodium 131.2 mmol/L (136.0-145.0) L 12/06/20 05:12 ABG Potassium 4.8 mmol/L (3.40-4.50) H 12/06/20 05:12 ABG Chloride 86.0 mmol/L (98-107) L 12/06/20 05:12 ABG Glucose 200 mg/dL (65-95) H 12/06/20 05:12 Oxyhemoglobin 84.0 % (95.0-99.0) L 12/07/20 05:20 Carboxyhemoglobin 1.3 (0.5-1.5) 12/05/20 04:16 FiO2 60 % 12/07/20 05:20 Sodium 134 mmol/L (137-145) L 12/06/20 04:31 Potassium 5.1 mmol/L (3.6-5.0) H 12/06/20 04:31 Chloride 88.4 mmol/L (98-107) L 12/06/20 04:31 Carbon Dioxide 47 mmol/L (22-30) H* 12/06/20 04:31 Anion Gap 4 mmol/L 12/06/20 04:31 BUN 23 mg/dL (9-20) H 12/06/20 04:31 Creatinine 0.3 mg/dL (0.8-1.3) L 12/06/20 04:31 Estimated GFR > 60 ml/min 12/06/20 04:31 BUN/Creatinine Ratio 77 % 12/06/20 04:31 Glucose 206 mg/dL (75-100) H 12/06/20 04:31 POC Glucose 153 mg/dL (70-105) H 12/06/20 23:43 Hemoglobin A1c 11.7 % (4-6) H 11/16/20 05:29 Lactic Acid 2.60 mmol/L (0.7-2.0) H* 11/16/20 05:29 Calcium 8.3 mg/dL (8.4-10.2) L 12/06/20 04:31 Phosphorus 2.90 mg/dL (2.5-4.5) 12/04/20 Unknown Magnesium 1.90 mg/dL (1.7-2.3) 12/04/20 Unknown Ferritin 778.8 ng/mL (30.0-300.0) H 11/26/20 04:00 Total Bilirubin 0.30 mg/dL (0.1-1.2) 12/06/20 04:31 AST 48 units/L (5-40) H 12/06/20 04:31 ALT 91 units/L (7-56) H 12/06/20 04:31 Alkaline Phosphatase 140 units/L (35-129) H 12/06/20 04:31 Lactate Dehydrogenase 288 units/L (91-180) H 11/26/20 04:00 Troponin T < 0.010 ng/mL (0.00-0.029) 11/22/20 Unknown C-Reactive Protein 1.40 mg/dL (0.00-1.30) H 11/26/20 04:00 NT-Pro-B Natriuret Pep 107.2 pg/mL (0-900) 11/17/20 10:21 Total Protein 5.7 g/dL (6.3-8.2) L 12/06/20 04:31 Albumin 2.6 g/dL (3.9-5) L 12/06/20 04:31 Albumin/Globulin Ratio 0.8 % 12/06/20 04:31 Triglycerides 156 mg/dL (2-149) H 12/04/20 Unknown Procalcitonin 0.51 ng/mL (<0.15) 11/15/20 10:39 Arterial Blood Glucose 200 mg/dL (65-95) H 12/06/20 05:12 Arterial Blood Ionized Calcium 4.4 mg/dL (4.6-5.3) L 12/06/20 05:12 Urine Color [place] (Yellow) 11/16/20 01:45 Urine Turbidity Slightly-cloudy (Clear) 11/16/20 01:45 Urine pH 6.0 (5.0-7.0) 11/16/20 01:45 Ur Specific [place] 1.037 (1.003-1.030) H 11/16/20 01:45 Urine Protein 30 mg/dl mg/dL (Negative) 11/16/20 01:45 Urine Glucose (UA) >=500 mg/dL (Negative) 11/16/20 01:45 Urine Ketones 20 mg/dL (Negative) 11/16/20 01:45 Urine Blood Neg (Negative) 11/16/20 01:45 Urine Nitrite Neg (Negative) 11/16/20 01:45 Urine Bilirubin Neg (Negative) 11/16/20 01:45 Urine Urobilinogen 2.0 mg/dL (<2.0) 11/16/20 01:45 Ur Leukocyte Esterase Neg (Negative) 11/16/20 01:45 Urine WBC (Auto) 2.0 /HPF (0.0-6.0) 11/16/20 01:45 Urine RBC (Auto) 1.0 /HPF (0.0-6.0) 11/16/20 01:45 Urine Bacteria (Auto) 1+ /HPF (Negative) 11/16/20 01:45 Urine Mucus 3+ /HPF 11/16/20 01:45 Vancomycin Trough 4.0 ug/mL (5.0-20.0) L 11/29/20 15:40 Coronavirus (PCR) Positive (Negative) A 11/16/20 Unknown Microbiology: Microbiology 11/21/20 23:49 Tracheal Aspirate Sputum Culture - Preliminary Methicillin Resist S. Aureus - Diagnostic Impressions Diagnostic Impressions: Echocardiogram 11/16/20 10:34 Transthoracic Echocardiogram Indication: Shortness of breath-COVID BP: 108/77 HR: 92 Conclusions *Global left ventricular systolic function is normal. *The estimated ejection fraction is 60-65%. *Mild to moderate concentric left ventricular hypertrophy is observed. *There is trace of mitral regurgitation. *There is mild to moderate tricuspid regurgitation. *There is evidence of mild pulmonary hypertension. *The right ventricular systolic pressure is calculated at 31 mmHg. Findings Left Ventricle: The left ventricular chamber size is normal. Mild to moderate concentric left ventricular hypertrophy is observed. Global left ventricular systolic function is normal. The estimated ejection fraction is 60-65%. Left Atrium: The left atrial chamber size is normal. Right Ventricle: The right ventricular cavity size is normal. The right ventricular global systolic function is normal. Right Atrium: The right atrial cavity size is normal. Aortic Valve: The aortic valve is trileaflet. There is no evidence of aortic regurgitation. There is no evidence of aortic stenosis. Mitral Valve: The mitral valve leaflets appear normal. There is trace of mitral regurgitation. There is no evidence of mitral stenosis. Tricuspid Valve: The tricuspid valve leaflets are normal. There is mild to moderate tricuspid regurgitation. The right ventricular systolic pressure is calculated at 31 mmHg. There is evidence of mild pulmonary hypertension. Pulmonic Valve: There is trace pulmonic regurgitation. Pericardium: There is no pericardial effusion. Aorta: There is no dilatation of the ascending aorta. There is no dilatation of the aortic root. Venous: The inferior vena cava appears normal in size. Measurements Chambers 2D Name Value Normal Range IVSd (2D) 0.81 cm (0.6 - 1.1) LVPWd (2D) 0.79 cm (0.6 - 1.1) LVIDd (2D) 4.22 cm (3.7 - 5.6) LVIDs (2D) 3.1 cm (2 - 3.8) LV FS (2D) 26.71 % - EF Teichholz (2D) 52.55 % - Ao root diameter (2D) 3.34 cm (2 - 3.7) Volumes/Mass Name Value Normal Range LA ESV SP 4CH (A/L) 10.87 ml - LA ESV SP 2CH (A/L) 18.74 ml - LA ESV BP (A/L) 16.38 ml - LA ESV BP (A/L) index 8.62 ml/m2 - LA ESV SP 4CH (MOD) 10.32 ml - LA ESV SP 2CH (MOD) 17.66 ml - LA ESV BP (MOD) 15.12 ml - LA ESV BP (MOD) index 7.96 ml/m2 - Diastolic/Systolic Function Name Value Normal Range MV E-wave Vmax 0.76 m/sec - MV deceleration time 133.63 msec - MV A-wave Vmax 1.1 m/sec - MV E:A ratio 0.69 ratio - Aortic Valve Name Value Normal Range AV Vmax 1.44 m/sec - AV VTI 22.94 cm - AV peak gradient 8.33 mmHg - AV mean gradient 4.73 mmHg - LVOT diameter 2.2 cm - LVOT Vmax 1.04 m/sec - LVOT VTI 18.88 cm - LVOT peak gradient 4.34 mmHg - LVOT mean gradient 2.31 mmHg - SV LVOT 72.05 ml - EVANGELISTA (continuity Vmax) 2.75 cm2 - EVANGELISTA (continuity VTI) 3.14 cm2 - Tricuspid Valve Name Value Normal Range TR Vmax 2.64 m/sec - TR peak gradient 28 mmHg - RAP 3 mmHg - RVSP 31 mmHg - Gupta/IV: Voiding Method Indwelling Catheter IV Catheter Type [Left Peripheral IV Antecubital] Active Medications - Current Medications Current Medications: Generic Name Dose Route Start Last Admin Trade Name Freq PRN Reason Stop Dose Admin Acetaminophen 650 mg 11/15/20 23:55 11/18/20 22:19 Acetaminophen 325 Mg Tab PO 650 mg Q4H PRN Administration Pain MILD(1-3)/Fever >100.5/BUTTS Lipase/Protease/Amylase 1 each 11/23/20 11:53 12/05/20 23:45 Lipase 10,500/Protease 25,000/Amylase 43,750 (Units) Dr Cap FEEDTUBE 1 each PRN PRN Administration For Clogged Feeding Tube Enoxaparin Sodium 40 mg 12/03/20 22:00 12/06/20 21:11 Enoxaparin 40 Mg/0.4 Ml Inj SUB-Q 40 mg QDAY@2200 RAEANN Administration Famotidine 20 mg 11/22/20 22:00 12/06/20 21:11 Famotidine 20 Mg/2 Ml Inj IV 20 mg BID RAEANN Administration Fentanyl 50 mcg 11/21/20 21:53 Fentanyl 100 Mcg/2 Ml Inj IV Q10MIN PRN ANALGESIA Hydrophilic Ointment 1 applic 11/21/20 21:53 11/30/20 21:33 Lip Therapy Vaseline TP 1 applic Q2HR PRN Administration Dry Lips Fentanyl Citrate 2,000 mcg in 100 mls @ 3.625 mls/hr 11/21/20 22:00 12/07/20 00:22 Fentanyl Drip Premix IV 4 mcg/kg/hr TITR RAEANN 14.5 mls/hr Titration Protocol 1 MCG/KG/HR Midazolam HCl 100 mg/ Sodium 100 mls @ 2 mls/hr 11/21/20 22:00 12/07/20 00:18 Chloride IV 5 mg/hr TITR RAEANN 5 mls/hr Titration Protocol 2 MG/HR Norepinephrine 4 mg in 250 mls @ 7.5 mls/hr 11/22/20 17:00 Levophed Drip 4 Mg/Ns 250 Ml IV TITR RAEANN Protocol 2 MCG/MIN Propofol 1,000 mg in 100 mls @ 2.175 mls/hr 11/27/20 12:00 12/07/20 02:21 Diprivan 10 Mg/Ml IV 30 mcg/kg/min TITR RAEANN 13.05 mls/hr Administration Protocol 5 MCG/KG/MIN Insulin Glargine 30 units 12/02/20 09:00 12/06/20 22:15 Insulin Glargine 100 Units/Ml SUB-Q 30 units 0800,2200 RAEANN Administration Insulin Human Lispro 0 unit 11/22/20 06:00 12/07/20 06:22 Insulin Lispro 100 Unit/Ml SUB-Q 3 unit Q6HR RAEANN Administration Protocol Methylprednisolone Sodium Succinate 40 mg 12/03/20 14:00 12/07/20 06:27 Methylprednisolone Sod Succinate 40 Mg/1 Ml Inj IV 40 mg Q8HR RAEANN Administration Metoclopramide HCl 10 mg 11/15/20 23:55 Metoclopramide 10 Mg/2 Ml Inj IV Q6H PRN Nausea And Vomiting Midazolam HCl 2 mg 11/21/20 21:53 12/03/20 20:13 Midazolam 2 Mg/2 Ml Inj IV 2 mg Q10MIN PRN Administration Sedation Multi-Ingred Cream/Lotion/Oil/Oint 1 applic 11/21/20 21:53 Mineral Oil/Petrolatum, White Ophth Oint 3.5 Gm OU Q4HR PRN Dry Eye(s) Ondansetron HCl 4 mg 11/15/20 23:55 Ondansetron 4 Mg/2 Ml Inj IV Q8H PRN Nausea And Vomiting Senna/Docusate Sodium 2 tab 12/03/20 13:00 12/06/20 21:12 Sennosides/Docusate Sodium 8.6/50 Mg Tab PO 2 tab BID RAEANN Administration Simple Syrup 15 ml 11/23/20 11:53 Simple Syrup 15 Ml FEEDTUBE PRN PRN Hypoglycemia Simple Syrup 30 ml 11/23/20 11:53 Simple Syrup 15 Ml FEEDTUBE PRN PRN Hypoglycemia Sodium Bicarbonate 325 mg 11/23/20 11:53 12/05/20 23:46 Sodium Bicarbonate 325 Mg Tab FEEDTUBE 325 mg PRN PRN Administration For Clogged Feeding Tube Sodium Chloride 10 ml 11/16/20 10:00 12/06/20 22:16 Sodium Chloride 0.9% 10 Ml Flush Syringe IV 10 ml BID RAEANN Administration Sodium Chloride 10 ml 11/15/20 23:55 12/03/20 00:21 Sodium Chloride 0.9% 10 Ml Flush Syringe IV 10 ml PRN PRN Administration LINE FLUSH Nutrition/Malnutrition Assess - Dietary Evaluation Nutrition/Malnutrition Findings: Nutrition Notes Start: 11/20/20 12:03 Freq: Status: Active Protocol: Document 12/03/20 12:41 AL (Rec: 12/03/20 13:01 AL [id number]) Co-Sign 12/03/20 12:41 MK Nutrition Notes Initial or Follow up Reassessment Current Diagnosis Diabetes,Sepsis,Respiratory Failure Other Pertinent Diagnosis Bilat pneu, COVID-19 (+) Current Diet Glucerna at 60 ml/hr Labs/Tests POC BG 211 BUN 25 Cr .3 Pertinent Medications Solumedrol Propofol 8.7 ml/hr Humalog Lantus Height 5 ft 6 in Weight 83.5 kg Usual Body Weight 80.5 kg [place] Body Weight (kg) 64.54 BMI 29.7 Weight Status Overweight Subjective/Other Information F/U for TF tolerance. Pt tolerating Glucerna at 60 ml/ hr. Pt w/o BM since 11/21. MD to start bowel regimen Percent of energy/protein needs met: 100%/100% Burn Absent Trauma Absent GI Symptoms Last BM Difficulty In Swallowing,Chewing Food Allergy No Current % PO Negligible Minimum of two criteria Yes Energy Intake (severe) < or equal to 50% Estimated Energy Requirement > or equal to 5 days Interpretation of Weight Loss (severe) >2% in 1 week Fluid Accumulation Moderate to Severe (severe) #3 Nutrition Diagnosis Inadequate oral intake Diagnosis Progress(for reassessment Continues documentation) #2 Nutrition Diagnosis Malnutrition Diagnosis Progress(for reassessment Continues documentation) #1 Nutrition Diagnosis Unintended weight loss Diagnosis Progress(for reassessment Continues documentation) Is patient on ventilator? Yes Is Patient Ambulatory and/or Out of Bed No REE-([facility]-confined to bed) 1921.872 Kcal/Kg value to use for calculation 21 Approximate Energy Requirements Using 1754 kcal/Kg Calculation Used for Recommendations Kcal/kg Additional Notes Protein: 87-145 g/day (1.2-2g/ kg) Fluid: 1ml/kcal or per MD Nutrition Intervention Change Diet Order: Continue TF Nutrition Support: Glucerna 1.2 at 60 ml/hr. Flush 100 ml q4h Kcal 1,728 Protein (gm) 86 Fluid (mL) 1,159 Goal #1 TF tolerance Goal #2 Meet at least 75% of energy and protein needs via TF Anticipated Discharge Needs: Unknown at this time Follow-Up By: 12/09/20 Additional Comments F/U for TF tolerance
[2020-12-07] MEDS: INSULIN GLARGINE 100 UNITS/ML SUB-Q SCH ×2 (08:42→21:04)
[2020-12-07] MEDS: FAMOTIDINE 20 MG/2 ML INJ IV SCH ×2 (09:31→21:03)
[2020-12-07] MEDS: SENNOSIDES/DOCUSATE SODIUM 8.6/50 MG TAB PO SCH ×2 (09:33→21:03)
[2020-12-07] MEDS: fentaNYL DRIP Premix 2,000 MCG/100 ML BAG IV SCH ×2 (10:24→17:20)
[2020-12-07] MEDS: NORepinephrine/NS 4 MG-250 ML 4 MG/250 ML BAG IV SCH (11:30)
--- NOTE | 2020-12-07 13:10 | Progress Note ---
Assessment and Plan 59 y/o male with acute respiratory failure, abnormal CXR and abnormal lab studies. 12/07/20: CXR is stable, no indication for another chest tube at this time. Will repeat ABG in 1 hour post change to 70% and wean accordingly. Dropping s teroids to 20q8. Guarded prognosis. Same weaning parameters apply today as of 12/04/20 12/04/20: Continue to wean steroids to off. Continue to wean FiO2 for sats >88%. Keep PEEP at current level, would not feel comfortable weaning PEEP until FiO2 at 35-40%. Continue chest tubes to suction. PaO2 of >55, pH of >7.2 and sats >88% are acceptable. : Dropped steroids down to 40q8 and will start to wean from there. Continue to slowly wean FiO2 first, keep PEEP at current level. Spoke with Kehinde, please see my event note, who is the biological brother. He had no questions but thanked us for our care. Prognosis remains very very guarded. PaO2 of 55 and pH of >7.2 and sats of >88% are all acceptable. 12/02/20: Wean FiO2 for sats >88% and PaO2 >55. Unable to prone currently secondary to bilateral chest tubes. COntinue high dose steroids. CM To figure out who is the immediate next of kin that can make decisions and then we will discuss the current clinical situation with them. 12/01/20: Continue PEEP and FiO2 elevated to keep sats >88% and PaO2 >55. Small lung volumes and high PEEP. very very guarded prognosis. 11/30/20: Worsening hypoxemia. Chest tubes stable. Likely just worsening disease. Unable to prone now. Increase PEEP to 18 and FiO2 back up to 100. Continue 3 sedatives for RASS of -2. Obtain 12 lead to look at T waves as K was only 4.6 on yesterday. Guarded, guarded prognosis 11/29/20: Second chest tube in on yesterday. CXR is stable. ABG unchanged. Will likely increase PEEP now that chest tubes are in. No further paralytics. Still making good urine. Prognosis remains guarded. Will check chemistry to assess Potassium levels given peaked t's seen on monitor. 11/28/20: Second chest tube today. Once chest tube in, will likely increase PEEP to 18 and repeat gas about 2 hours after this. Continue paralytic today. No proning now that patient will have bilateral chest tubes. VEry guarded prognosis. 11/27/20: Spoke with surgery who have agreed to evaluate and placed chest tube on either right or left side pending CXR reading. Will monitor for 36-48 hours and if no resolution, will need chest tube placed on opposite side as well. Once placed, will likely paralyze again but hold on proning for now. Guarded prognosis. 11/26/20: Paralytics are off. Continue current level of sedation. Will prone for 12 hours today and repeat ABG in the am. Continue lung protective strategy. Guarded prognosis. 11/25/20: Prone again to 16 hours, will prone at 12-12:30. Continue paralytics for 24 more hours. Discussed the idea of permissive hypercapnea again today and as long as pH is above 7.2 no changes should be made to TV and or RR without discussing with physician. Continue to monitor urine output, guarded prognosis. Hold on lasix therapy today. 11/24/20: Prone again today. Will try 48 hours of paralyzing the patient to see if this will help with oxygenation. Will speak with RT's about permissive hypercapnea and that pH's of 7.2 and greater are ok. Continue high doses steroids. Prognosis is still very very guarded. If not improvement with paralytics, will attempt transfer. 11/23/20: Prone again today for 12 hours. Continue High Dose steroids. Hold on lasix given marginal BP's. Prognosis is very very guarded to poor. Will continue all supportive measures. If not able to wean from 100%, will attempt transfer for ECMO. 11/20/20: WIll change to solumedrol 60q6 today. Hold on lasix today. Given his increasing oxygen requirement, will likely end up intubated. OVerall prognosis is very poor. 11/19/20: lasix 40mg IV x1 today. Will speak with ID but may consider increasing steroids to see if this will help with oxygenation. Continue Remdesivir. Prognosis remains guarded. 11/18/20: Continue bipap, goal is to attempt to prevent prolong intubation for as long as possible. Lasix again today. Steroids and Remdesivir. Guarded Prognosis. 11/17/20: Continue bipap therapy. Monitor mental state. High risk for Intubation. Continue BID anticoagulation. Prone if able. BNP was elevated but not grossly elevated. Will still give lasix with hopes of achieving net neg ative state. STeroids and remdesivir. Overall prognosis is guarded, extremely guarded. 1. Pulm- Agree with concern for covid. Agree with empiric abx but procal is only mildly elevated. Await cultures. Continue bipap therapy for now but will need to monitor closely. [facility] has ordered CTA, but I spoke with pharmacy and we will empirically treat with BID lovenox therapy. COntinue empiric steroid therapy for COVID until studies back. Not sure that he will be able to prone on bipap therapy. Monitor volume status and run as dry as possible. 2. Renal-normal function but all electrolytes abnormal. HYponatremia and Hypochloremia volume up vs volume down. Sent BNP. Would suggest obtaning echo as well. Not sure what to make of elevated lactate unless that is from increased work of breathing or damage to other tissue unknown. May need to check LFT's and Coags as well. 3. Guarded Prognosis. CCT 31 minutes. Subjective Date of service: 12/07/20 Principal diagnosis: COVID-19 Interval history: Down to 85 % sat on monitor. At 60FiO2, increased to 70 after seeing ABG. Chest tubes still in place. Objective Vital Signs - 12hr 12/07/20 12/07/20 12/07/20 02:00 03:00 04:00 Temperature 98.8 F Pulse Rate 86 85 86 Pulse Rate [ 90 From Monitor] Respiratory 30 H 30 H 30 H Rate Blood Pressure 175/86 157/79 90/56 O2 Sat by Pulse 95 94 93 Oximetry 12/07/20 12/07/20 12/07/20 04:34 05:00 06:00 Temperature Pulse Rate 79 85 95 H Pulse Rate [ From Monitor] Respiratory 25 H 30 H Rate Blood Pressure 92/57 195/100 152/83 O2 Sat by Pulse 94 93 91 Oximetry 12/07/20 12/07/20 12/07/20 07:00 07:11 07:24 Temperature 98.1 F Pulse Rate 85 89 Pulse Rate [ From Monitor] Respiratory 30 H Rate Blood Pressure 86/49 90/55 O2 Sat by Pulse 91 92 Oximetry 12/07/20 12/07/20 12/07/20 08:00 09:00 10:00 Temperature Pulse Rate 76 85 92 H Pulse Rate [ From Monitor] Respiratory 30 H 25 H 31 H Rate Blood Pressure 93/53 169/80 163/83 O2 Sat by Pulse 89 88 85 Oximetry 12/07/20 11:29 Temperature Pulse Rate 90 Pulse Rate [ From Monitor] Respiratory Rate Blood Pressure 104/57 O2 Sat by Pulse 95 Oximetry Constitutional: other (on vent orally intubated) ENT: other (Now intubated) Ascultation: Bilateral: rales, rhonchi Percussion: Bilateral: not dull Cardiovascular: regular rate and rhythm Gastrointestinal: soft, non-tender Neurologic: other (on vent) CBC and BMP: 12/06/20 04:31 12/06/20 04:31 ABG, PT/INR, D-dimer: ABG ABG pH 7.418 pH Units (7.350-7.450) 12/07/20 05:20 POC ABG pCO2 85.9 mmHg (32.0-48.0) H 12/06/20 05:12 ABG pCO2 80.5 mm Hg 12/07/20 05:20 POC ABG pO2 57.6 mmHg (83-108) L 12/06/20 05:12 ABG pO2 48.4 mm Hg (80.0-90.0) L 12/07/20 05:20 POC ABG HCO3 44.8 12/06/20 05:12 ABG O2 Saturation 86.2 % (95.0-99.0) L 12/07/20 05:20 PT/INR, D-dimer D-Dimer 926.11 ng/mlDDU (0-234) H 11/26/20 06:04 Abnormal lab findings: Abnormal Labs 11/15/20 11/15/20 11/15/20 10:39 10:39 10:39 WBC 14.3 H RBC 5.17 H Hgb Hct Plt Count Lymph % (Auto) 7.8 L [place] % (Auto) 7.6 H Lymph # (Auto) 1.1 L [place] # (Auto) 1.1 H Baso # (Auto) Seg Neutrophils % 83.3 H Seg Neuts % (Manual) Lymphocytes % (Manual) Seg Neutrophils # 11.9 H Seg Neutrophils # Man Lymphocytes # (Manual) D-Dimer ABG pH POC ABG pCO2 POC ABG pO2 ABG pO2 ABG HCO3 ABG O2 Saturation ABG Base Excess ABG Hemoglobin ABG Oxyhemoglobin ABG Sodium ABG Potassium ABG Chloride ABG Glucose Oxyhemoglobin Sodium 128 L Potassium Chloride 96.0 L Carbon Dioxide BUN Creatinine 0.7 L Glucose 238 H POC Glucose Hemoglobin A1c Lactic Acid 4.10 H* Calcium 7.0 L Ferritin Total Bilirubin 1.40 H AST 49 H ALT 70 H Alkaline Phosphatase Lactate Dehydrogenase 663 H C-Reactive Protein 19.80 H Total Protein Albumin 2.9 L Triglycerides Arterial Blood Glucose Arterial Blood Ionized Calcium Ur Specific [place] Vancomycin Trough Coronavirus (PCR) 11/15/20 11/15/20 11/15/20 10:39 10:39 11:20 WBC RBC Hgb Hct Plt Count Lymph % (Auto) [place] % (Auto) Lymph # (Auto) [place] # (Auto) Baso # (Auto) Seg Neutrophils % Seg Neuts % (Manual) Lymphocytes % (Manual) Seg Neutrophils # Seg Neutrophils # Man Lymphocytes # (Manual) D-Dimer > 04237 H ABG pH POC ABG pCO2 29.9 L POC ABG pO2 137.3 H ABG pO2 ABG HCO3 ABG O2 Saturation ABG Base Excess ABG Hemoglobin ABG Oxyhemoglobin ABG Sodium 126.5 L ABG Potassium ABG Chloride ABG Glucose 248 H Oxyhemoglobin Sodium Potassium Chloride Carbon Dioxide BUN Creatinine Glucose POC Glucose Hemoglobin A1c Lactic Acid Calcium Ferritin 672.8 H Total Bilirubin AST ALT Alkaline Phosphatase Lactate Dehydrogenase C-Reactive Protein Total Protein Albumin Triglycerides Arterial Blood Glucose 248 H Arterial Blood Ionized Calcium 4.1 L Ur Specific [place] Vancomycin Trough Coronavirus (PCR) 11/15/20 11/15/20 11/16/20 13:41 23:41 01:45 WBC RBC Hgb Hct Plt Count Lymph % (Auto) [place] % (Auto) Lymph # (Auto) [place] # (Auto) Baso # (Auto) Seg Neutrophils % Seg Neuts % (Manual) Lymphocytes % (Manual) Seg Neutrophils # Seg Neutrophils # Man Lymphocytes # (Manual) D-Dimer ABG pH POC ABG pCO2 POC ABG pO2 ABG pO2 ABG HCO3 ABG O2 Saturation ABG Base Excess ABG Hemoglobin ABG Oxyhemoglobin ABG Sodium ABG Potassium ABG Chloride ABG Glucose Oxyhemoglobin Sodium Potassium Chloride Carbon Dioxide BUN Creatinine Glucose POC Glucose 284 H Hemoglobin A1c Lactic Acid 2.30 H* Calcium Ferritin Total Bilirubin AST ALT Alkaline Phosphatase Lactate Dehydrogenase C-Reactive Protein Total Protein Albumin Triglycerides Arterial Blood Glucose Arterial Blood Ionized Calcium Ur Specific [place] 1.037 H Vancomycin Trough Coronavirus (PCR) 11/16/20 11/16/20 11/16/20 05:29 05:29 05:29 WBC 12.9 H RBC Hgb Hct Plt Count Lymph % (Auto) 4.5 L [place] % (Auto) Lymph # (Auto) 0.6 L [place] # (Auto) Baso # (Auto) 0.2 H Seg Neutrophils % 89.8 H Seg Neuts % (Manual) Lymphocytes % (Manual) Seg Neutrophils # 11.5 H Seg Neutrophils # Man Lymphocytes # (Manual) D-Dimer ABG pH POC ABG pCO2 POC ABG pO2 ABG pO2 ABG HCO3 ABG O2 Saturation ABG Base Excess ABG Hemoglobin ABG Oxyhemoglobin ABG Sodium ABG Potassium ABG Chloride ABG Glucose Oxyhemoglobin Sodium 131 L Potassium Chloride Carbon Dioxide 21 L BUN 23 H Creatinine 0.6 L Glucose 342 H POC Glucose Hemoglobin A1c Lactic Acid 2.60 H* Calcium 7.0 L Ferritin Total Bilirubin AST ALT Alkaline Phosphatase Lactate Dehydrogenase C-Reactive Protein Total Protein Albumin 2.4 L Triglycerides Arterial Blood Glucose Arterial Blood Ionized Calcium Ur Specific [place] Vancomycin Trough Coronavirus (PCR) 11/16/20 11/16/20 11/16/20 05:29 08:11 12:11 WBC RBC Hgb Hct Plt Count Lymph % (Auto) [place] % (Auto) Lymph # (Auto) [place] # (Auto) Baso # (Auto) Seg Neutrophils % Seg Neuts % (Manual) Lymphocytes % (Manual) Seg Neutrophils # Seg Neutrophils # Man Lymphocytes # (Manual) D-Dimer ABG pH POC ABG pCO2 POC ABG pO2 ABG pO2 ABG HCO3 ABG O2 Saturation ABG Base Excess ABG Hemoglobin ABG Oxyhemoglobin ABG Sodium ABG Potassium ABG Chloride ABG Glucose Oxyhemoglobin Sodium Potassium Chloride Carbon Dioxide BUN Creatinine Glucose POC Glucose 329 H 320 H Hemoglobin A1c 11.7 H Lactic Acid Calcium Ferritin Total Bilirubin AST ALT Alkaline Phosphatase Lactate Dehydrogenase C-Reactive Protein Total Protein Albumin Triglycerides Arterial Blood Glucose Arterial Blood Ionized Calcium Ur Specific [place] Vancomycin Trough Coronavirus (PCR) 11/16/20 11/16/20 11/16/20 16:13 21:29 Unknown WBC RBC Hgb Hct Plt Count Lymph % (Auto) [place] % (Auto) Lymph # (Auto) [place] # (Auto) Baso # (Auto) Seg Neutrophils % Seg Neuts % (Manual) Lymphocytes % (Manual) Seg Neutrophils # Seg Neutrophils # Man Lymphocytes # (Manual) D-Dimer ABG pH POC ABG pCO2 POC ABG pO2 ABG pO2 ABG HCO3 ABG O2 Saturation ABG Base Excess ABG Hemoglobin ABG Oxyhemoglobin ABG Sodium ABG Potassium ABG Chloride ABG Glucose Oxyhemoglobin Sodium Potassium Chloride Carbon Dioxide BUN Creatinine Glucose POC Glucose 257 H 376 H Hemoglobin A1c Lactic Acid Calcium Ferritin Total Bilirubin AST ALT Alkaline Phosphatase Lactate Dehydrogenase C-Reactive Protein Total Protein Albumin Triglycerides Arterial Blood Glucose Arterial Blood Ionized Calcium Ur Specific [place] Vancomycin Trough Coronavirus (PCR) Positive A 11/17/20 11/17/20 11/17/20 07:42 12:07 17:25 WBC RBC Hgb Hct Plt Count Lymph % (Auto) [place] % (Auto) Lymph # (Auto) [place] # (Auto) Baso # (Auto) Seg Neutrophils % Seg Neuts % (Manual) Lymphocytes % (Manual) Seg Neutrophils # Seg Neutrophils # Man Lymphocytes # (Manual) D-Dimer ABG pH POC ABG pCO2 POC ABG pO2 ABG pO2 ABG HCO3 ABG O2 Saturation ABG Base Excess ABG Hemoglobin ABG Oxyhemoglobin ABG Sodium ABG Potassium ABG Chloride ABG Glucose Oxyhemoglobin Sodium Potassium Chloride Carbon Dioxide BUN Creatinine Glucose POC Glucose 231 H 380 H 302 H Hemoglobin A1c Lactic Acid Calcium Ferritin Total Bilirubin AST ALT Alkaline Phosphatase Lactate Dehydrogenase C-Reactive Protein Total Protein Albumin Triglycerides Arterial Blood Glucose Arterial Blood Ionized Calcium Ur Specific [place] Vancomycin Trough Coronavirus (PCR) 11/17/20 11/18/20 11/18/20 21:53 04:25 07:45 WBC RBC Hgb Hct Plt Count Lymph % (Auto) [place] % (Auto) Lymph # (Auto) [place] # (Auto) Baso # (Auto) Seg Neutrophils % Seg Neuts % (Manual) Lymphocytes % (Manual) Seg Neutrophils # Seg Neutrophils # Man Lymphocytes # (Manual) D-Dimer ABG pH POC ABG pCO2 POC ABG pO2 ABG pO2 ABG HCO3 ABG O2 Saturation ABG Base Excess ABG Hemoglobin ABG Oxyhemoglobin ABG Sodium ABG Potassium ABG Chloride ABG Glucose Oxyhemoglobin Sodium 136 L Potassium Chloride Carbon Dioxide BUN 24 H Creatinine 0.6 L Glucose 212 H POC Glucose 293 H 216 H Hemoglobin A1c Lactic Acid Calcium 7.4 L Ferritin Total Bilirubin AST 41 H ALT Alkaline Phosphatase 142 H Lactate Dehydrogenase C-Reactive Protein Total Protein Albumin 2.3 L Triglycerides Arterial Blood Glucose Arterial Blood Ionized Calcium Ur Specific [place] Vancomycin Trough Coronavirus (PCR) 11/18/20 11/18/20 11/18/20 12:28 15:58 21:37 WBC RBC Hgb Hct Plt Count Lymph % (Auto) [place] % (Auto) Lymph # (Auto) [place] # (Auto) Baso # (Auto) Seg Neutrophils % Seg Neuts % (Manual) Lymphocytes % (Manual) Seg Neutrophils # Seg Neutrophils # Man Lymphocytes # (Manual) D-Dimer ABG pH POC ABG pCO2 POC ABG pO2 ABG pO2 ABG HCO3 ABG O2 Saturation ABG Base Excess ABG Hemoglobin ABG Oxyhemoglobin ABG Sodium ABG Potassium ABG Chloride ABG Glucose Oxyhemoglobin Sodium Potassium Chloride Carbon Dioxide BUN Creatinine Glucose POC Glucose 165 H 220 H 311 H Hemoglobin A1c Lactic Acid Calcium Ferritin Total Bilirubin AST ALT Alkaline Phosphatase Lactate Dehydrogenase C-Reactive Protein Total Protein Albumin Triglycerides Arterial Blood Glucose Arterial Blood Ionized Calcium Ur Specific [place] Vancomycin Trough Coronavirus (PCR) 11/19/20 11/19/20 11/19/20 05:35 07:40 12:39 WBC RBC Hgb Hct Plt Count Lymph % (Auto) [place] % (Auto) Lymph # (Auto) [place] # (Auto) Baso # (Auto) Seg Neutrophils % Seg Neuts % (Manual) Lymphocytes % (Manual) Seg Neutrophils # Seg Neutrophils # Man Lymphocytes # (Manual) D-Dimer ABG pH POC ABG pCO2 POC ABG pO2 ABG pO2 ABG HCO3 ABG O2 Saturation ABG Base Excess ABG Hemoglobin ABG Oxyhemoglobin ABG Sodium ABG Potassium ABG Chloride ABG Glucose Oxyhemoglobin Sodium 132 L Potassium Chloride Carbon Dioxide BUN 25 H Creatinine 0.5 L Glucose 179 H POC Glucose 149 H 306 H Hemoglobin A1c Lactic Acid Calcium 7.5 L Ferritin Total Bilirubin AST ALT Alkaline Phosphatase 139 H Lactate Dehydrogenase C-Reactive Protein Total Protein Albumin 2.4 L Triglycerides Arterial Blood Glucose Arterial Blood Ionized Calcium Ur Specific [place] Vancomycin Trough Coronavirus (PCR) 11/19/20 11/19/20 11/20/20 16:17 21:25 08:30 WBC RBC Hgb Hct Plt Count Lymph % (Auto) [place] % (Auto) Lymph # (Auto) [place] # (Auto) Baso # (Auto) Seg Neutrophils % Seg Neuts % (Manual) Lymphocytes % (Manual) Seg Neutrophils # Seg Neutrophils # Man Lymphocytes # (Manual) D-Dimer ABG pH POC ABG pCO2 POC ABG pO2 ABG pO2 ABG HCO3 ABG O2 Saturation ABG Base Excess ABG Hemoglobin ABG Oxyhemoglobin ABG Sodium ABG Potassium ABG Chloride ABG Glucose Oxyhemoglobin Sodium Potassium Chloride Carbon Dioxide BUN Creatinine Glucose POC Glucose 364 H 347 H 141 H Hemoglobin A1c Lactic Acid Calcium Ferritin Total Bilirubin AST ALT Alkaline Phosphatase Lactate Dehydrogenase C-Reactive Protein Total Protein Albumin Triglycerides Arterial Blood Glucose Arterial Blood Ionized Calcium Ur Specific [place] Vancomycin Trough Coronavirus (PCR) 11/20/20 11/20/20 11/20/20 08:50 11:32 16:19 WBC RBC Hgb Hct Plt Count Lymph % (Auto) [place] % (Auto) Lymph # (Auto) [place] # (Auto) Baso # (Auto) Seg Neutrophils % Seg Neuts % (Manual) Lymphocytes % (Manual) Seg Neutrophils # Seg Neutrophils # Man Lymphocytes # (Manual) D-Dimer ABG pH POC ABG pCO2 POC ABG pO2 ABG pO2 ABG HCO3 ABG O2 Saturation ABG Base Excess ABG Hemoglobin ABG Oxyhemoglobin ABG Sodium ABG Potassium ABG Chloride ABG Glucose Oxyhemoglobin Sodium 132 L Potassium Chloride 97.6 L Carbon Dioxide BUN 26 H Creatinine 0.5 L Glucose 201 H POC Glucose 296 H 327 H Hemoglobin A1c Lactic Acid Calcium 7.9 L Ferritin Total Bilirubin AST ALT Alkaline Phosphatase 137 H Lactate Dehydrogenase C-Reactive Protein Total Protein Albumin 2.6 L Triglycerides Arterial Blood Glucose Arterial Blood Ionized Calcium Ur Specific [place] Vancomycin Trough Coronavirus (PCR) 11/20/20 11/21/20 11/21/20 22:09 07:59 13:51 WBC RBC Hgb Hct Plt Count Lymph % (Auto) [place] % (Auto) Lymph # (Auto) [place] # (Auto) Baso # (Auto) Seg Neutrophils % Seg Neuts % (Manual) Lymphocytes % (Manual) Seg Neutrophils # Seg Neutrophils # Man Lymphocytes # (Manual) D-Dimer ABG pH POC ABG pCO2 POC ABG pO2 ABG pO2 ABG HCO3 ABG O2 Saturation ABG Base Excess ABG Hemoglobin ABG Oxyhemoglobin ABG Sodium ABG Potassium ABG Chloride ABG Glucose Oxyhemoglobin Sodium Potassium Chloride Carbon Dioxide BUN Creatinine Glucose POC Glucose 311 H 218 H 304 H Hemoglobin A1c Lactic Acid Calcium Ferritin Total Bilirubin AST ALT Alkaline Phosphatase Lactate Dehydrogenase C-Reactive Protein Total Protein Albumin Triglycerides Arterial Blood Glucose Arterial Blood Ionized Calcium Ur Specific [place] Vancomycin Trough Coronavirus (PCR) 11/21/20 11/21/20 11/21/20 16:09 21:34 23:00 WBC RBC Hgb Hct Plt Count Lymph % (Auto) [place] % (Auto) Lymph # (Auto) [place] # (Auto) Baso # (Auto) Seg Neutrophils % Seg Neuts % (Manual) Lymphocytes % (Manual) Seg Neutrophils # Seg Neutrophils # Man Lymphocytes # (Manual) D-Dimer ABG pH 7.206 L POC ABG pCO2 59.3 H POC ABG pO2 76.7 L ABG pO2 ABG HCO3 ABG O2 Saturation ABG Base Excess ABG Hemoglobin ABG Oxyhemoglobin ABG Sodium 133.1 L ABG Potassium ABG Chloride ABG Glucose 320 H Oxyhemoglobin Sodium Potassium Chloride Carbon Dioxide BUN Creatinine Glucose POC Glucose 239 H 279 H Hemoglobin A1c Lactic Acid Calcium Ferritin Total Bilirubin AST ALT Alkaline Phosphatase Lactate Dehydrogenase C-Reactive Protein Total Protein Albumin Triglycerides Arterial Blood Glucose 320 H Arterial Blood Ionized Calcium Ur Specific [place] Vancomycin Trough Coronavirus (PCR) 11/22/20 11/22/20 11/22/20 04:52 04:52 04:52 WBC RBC Hgb Hct Plt Count Lymph % (Auto) [place] % (Auto) Lymph # (Auto) [place] # (Auto) Baso # (Auto) Seg Neutrophils % Seg Neuts % (Manual) Lymphocytes % (Manual) Seg Neutrophils # Seg Neutrophils # Man Lymphocytes # (Manual) D-Dimer 1858.36 H ABG pH POC ABG pCO2 POC ABG pO2 ABG pO2 ABG HCO3 ABG O2 Saturation ABG Base Excess ABG Hemoglobin ABG Oxyhemoglobin ABG Sodium ABG Potassium ABG Chloride ABG Glucose Oxyhemoglobin Sodium Potassium Chloride Carbon Dioxide BUN Creatinine Glucose POC Glucose Hemoglobin A1c Lactic Acid Calcium Ferritin 734.2 H Total Bilirubin AST ALT Alkaline Phosphatase Lactate Dehydrogenase 404 H C-Reactive Protein 2.80 H Total Protein Albumin Triglycerides Arterial Blood Glucose Arterial Blood Ionized Calcium Ur Specific [place] Vancomycin Trough Coronavirus (PCR) 11/22/20 11/22/20 11/22/20 05:12 05:39 11:50 WBC RBC Hgb Hct Plt Count Lymph % (Auto) [place] % (Auto) Lymph # (Auto) [place] # (Auto) Baso # (Auto) Seg Neutrophils % Seg Neuts % (Manual) Lymphocytes % (Manual) Seg Neutrophils # Seg Neutrophils # Man Lymphocytes # (Manual) D-Dimer ABG pH POC ABG pCO2 POC ABG pO2 51.0 L ABG pO2 ABG HCO3 ABG O2 Saturation ABG Base Excess ABG Hemoglobin ABG Oxyhemoglobin ABG Sodium 131.2 L ABG Potassium 4.6 H ABG Chloride ABG Glucose 317 H Oxyhemoglobin Sodium Potassium Chloride Carbon Dioxide BUN Creatinine Glucose POC Glucose 340 H 417 H Hemoglobin A1c Lactic Acid Calcium Ferritin Total Bilirubin AST ALT Alkaline Phosphatase Lactate Dehydrogenase C-Reactive Protein Total Protein Albumin Triglycerides Arterial Blood Glucose 317 H Arterial Blood Ionized Calcium 4.4 L Ur Specific [place] Vancomycin Trough Coronavirus (PCR) 11/22/20 11/22/20 11/22/20 12:22 12:22 17:10 WBC 14.4 H RBC Hgb Hct Plt Count Lymph % (Auto) [place] % (Auto) Lymph # (Auto) [place] # (Auto) Baso # (Auto) Seg Neutrophils % Seg Neuts % (Manual) 98.0 H Lymphocytes % (Manual) Seg Neutrophils # Seg Neutrophils # Man 14.1 H Lymphocytes # (Manual) 0.0 L D-Dimer ABG pH POC ABG pCO2 POC ABG pO2 ABG pO2 ABG HCO3 ABG O2 Saturation ABG Base Excess ABG Hemoglobin ABG Oxyhemoglobin ABG Sodium ABG Potassium ABG Chloride ABG Glucose Oxyhemoglobin Sodium 132 L Potassium Chloride Carbon Dioxide BUN 36 H Creatinine 0.6 L Glucose 219 H POC Glucose 157 H Hemoglobin A1c Lactic Acid Calcium 7.2 L Ferritin Total Bilirubin AST ALT Alkaline Phosphatase Lactate Dehydrogenase C-Reactive Protein Total Protein Albumin Triglycerides Arterial Blood Glucose Arterial Blood Ionized Calcium Ur Specific [place] Vancomycin Trough Coronavirus (PCR) 11/22/20 11/22/20 11/22/20 18:33 21:44 23:47 WBC RBC Hgb Hct Plt Count Lymph % (Auto) [place] % (Auto) Lymph # (Auto) [place] # (Auto) Baso # (Auto) Seg Neutrophils % Seg Neuts % (Manual) Lymphocytes % (Manual) Seg Neutrophils # Seg Neutrophils # Man Lymphocytes # (Manual) D-Dimer ABG pH POC ABG pCO2 POC ABG pO2 60.8 L ABG pO2 ABG HCO3 ABG O2 Saturation ABG Base Excess ABG Hemoglobin ABG Oxyhemoglobin 88.1 L ABG Sodium 135.1 L ABG Potassium ABG Chloride ABG Glucose 141 H Oxyhemoglobin Sodium Potassium Chloride Carbon Dioxide BUN Creatinine Glucose POC Glucose 117 H 123 H Hemoglobin A1c Lactic Acid Calcium Ferritin Total Bilirubin AST ALT Alkaline Phosphatase Lactate Dehydrogenase C-Reactive Protein Total Protein Albumin Triglycerides Arterial Blood Glucose 141 H Arterial Blood Ionized Calcium Ur Specific [place] Vancomycin Trough Coronavirus (PCR) 11/23/20 11/23/20 11/23/20 04:00 04:00 05:23 WBC 14.4 H RBC Hgb Hct Plt Count Lymph % (Auto) [place] % (Auto) Lymph # (Auto) [place] # (Auto) Baso # (Auto) Seg Neutrophils % Seg Neuts % (Manual) Lymphocytes % (Manual) Seg Neutrophils # Seg Neutrophils # Man Lymphocytes # (Manual) D-Dimer ABG pH POC ABG pCO2 POC ABG pO2 ABG pO2 ABG HCO3 ABG O2 Saturation ABG Base Excess ABG Hemoglobin ABG Oxyhemoglobin ABG Sodium ABG Potassium ABG Chloride ABG Glucose Oxyhemoglobin Sodium 136 L Potassium Chloride Carbon Dioxide BUN 33 H Creatinine 0.6 L Glucose 115 H POC Glucose 173 H Hemoglobin A1c Lactic Acid Calcium 7.1 L Ferritin Total Bilirubin AST 64 H ALT 75 H Alkaline Phosphatase Lactate Dehydrogenase C-Reactive Protein Total Protein 5.9 L D Albumin 2.4 L Triglycerides Arterial Blood Glucose Arterial Blood Ionized Calcium Ur Specific [place] Vancomycin Trough Coronavirus (PCR) 11/23/20 11/23/20 11/23/20 05:40 11:27 17:10 WBC RBC Hgb Hct Plt Count Lymph % (Auto) [place] % (Auto) Lymph # (Auto) [place] # (Auto) Baso # (Auto) Seg Neutrophils % Seg Neuts % (Manual) Lymphocytes % (Manual) Seg Neutrophils # Seg Neutrophils # Man Lymphocytes # (Manual) D-Dimer ABG pH POC ABG pCO2 POC ABG pO2 56.5 L ABG pO2 ABG HCO3 ABG O2 Saturation ABG Base Excess ABG Hemoglobin ABG Oxyhemoglobin ABG Sodium ABG Potassium ABG Chloride 109.0 H ABG Glucose 114 H Oxyhemoglobin Sodium Potassium Chloride Carbon Dioxide BUN Creatinine Glucose POC Glucose 114 H 136 H Hemoglobin A1c Lactic Acid Calcium Ferritin Total Bilirubin AST ALT Alkaline Phosphatase Lactate Dehydrogenase C-Reactive Protein Total Protein Albumin Triglycerides Arterial Blood Glucose 114 H Arterial Blood Ionized Calcium 4.5 L Ur Specific [place] Vancomycin Trough Coronavirus (PCR) 11/24/20 11/24/2021 05:14 05:14 05:14 WBC RBC Hgb Hct Plt Count Lymph % (Auto) [place] % (Auto) Lymph # (Auto) [place] # (Auto) Baso # (Auto) Seg Neutrophils % Seg Neuts % (Manual) Lymphocytes % (Manual) Seg Neutrophils # Seg Neutrophils # Man Lymphocytes # (Manual) D-Dimer 1433.39 H ABG pH POC ABG pCO2 POC ABG pO2 ABG pO2 ABG HCO3 ABG O2 Saturation ABG Base Excess ABG Hemoglobin ABG Oxyhemoglobin ABG Sodium ABG Potassium ABG Chloride ABG Glucose Oxyhemoglobin Sodium Potassium Chloride Carbon Dioxide BUN Creatinine Glucose POC Glucose Hemoglobin A1c Lactic Acid Calcium Ferritin 997.5 H Total Bilirubin AST ALT Alkaline Phosphatase Lactate Dehydrogenase 463 H C-Reactive Protein Total Protein Albumin Triglycerides Arterial Blood Glucose Arterial Blood Ionized Calcium Ur Specific [place] Vancomycin Trough Coronavirus (PCR) 11/24/20 11/24/20 11/24/20 05:31 05:36 12:05 WBC RBC Hgb Hct Plt Count Lymph % (Auto) [place] % (Auto) Lymph # (Auto) [place] # (Auto) Baso # (Auto) Seg Neutrophils % Seg Neuts % (Manual) Lymphocytes % (Manual) Seg Neutrophils # Seg Neutrophils # Man Lymphocytes # (Manual) D-Dimer ABG pH POC ABG pCO2 POC ABG pO2 57.2 L ABG pO2 ABG HCO3 ABG O2 Saturation ABG Base Excess ABG Hemoglobin ABG Oxyhemoglobin ABG Sodium ABG Potassium ABG Chloride ABG Glucose 180 H Oxyhemoglobin Sodium Potassium Chloride Carbon Dioxide BUN Creatinine Glucose POC Glucose 199 H 143 H Hemoglobin A1c Lactic Acid Calcium Ferritin Total Bilirubin AST ALT Alkaline Phosphatase Lactate Dehydrogenase C-Reactive Protein Total Protein Albumin Triglycerides Arterial Blood Glucose 180 H Arterial Blood Ionized Calcium 4.5 L Ur Specific [place] Vancomycin Trough Coronavirus (PCR) 11/24/20 11/24/20 11/24/20 12:14 17:47 23:47 WBC RBC Hgb Hct Plt Count Lymph % (Auto) [place] % (Auto) Lymph # (Auto) [place] # (Auto) Baso # (Auto) Seg Neutrophils % Seg Neuts % (Manual) Lymphocytes % (Manual) Seg Neutrophils # Seg Neutrophils # Man Lymphocytes # (Manual) D-Dimer ABG pH 7.261 L POC ABG pCO2 59.7 H POC ABG pO2 75.7 L ABG pO2 ABG HCO3 ABG O2 Saturation ABG Base Excess ABG Hemoglobin ABG Oxyhemoglobin 92.5 L ABG Sodium ABG Potassium ABG Chloride 108.0 H ABG Glucose 150 H Oxyhemoglobin Sodium Potassium Chloride Carbon Dioxide BUN Creatinine Glucose POC Glucose 223 H 179 H Hemoglobin A1c Lactic Acid Calcium Ferritin Total Bilirubin AST ALT Alkaline Phosphatase Lactate Dehydrogenase C-Reactive Protein Total Protein Albumin Triglycerides Arterial Blood Glucose 150 H Arterial Blood Ionized Calcium Ur Specific [place] Vancomycin Trough Coronavirus (PCR) 11/25/20 11/25/20 11/25/20 03:29 05:07 05:15 WBC 13.9 H RBC Hgb Hct Plt Count Lymph % (Auto) [place] % (Auto) Lymph # (Auto) [place] # (Auto) Baso # (Auto) Seg Neutrophils % Seg Neuts % (Manual) 97.0 H Lymphocytes % (Manual) Seg Neutrophils # Seg Neutrophils # Man 13.5 H Lymphocytes # (Manual) 0.0 L D-Dimer ABG pH 7.272 L POC ABG pCO2 69.0 H POC ABG pO2 132.9 H ABG pO2 ABG HCO3 ABG O2 Saturation ABG Base Excess ABG Hemoglobin ABG Oxyhemoglobin ABG Sodium ABG Potassium ABG Chloride ABG Glucose 174 H Oxyhemoglobin Sodium Potassium Chloride Carbon Dioxide BUN Creatinine Glucose POC Glucose 168 H Hemoglobin A1c Lactic Acid Calcium Ferritin Total Bilirubin AST ALT Alkaline Phosphatase Lactate Dehydrogenase C-Reactive Protein Total Protein Albumin Triglycerides Arterial Blood Glucose 174 H Arterial Blood Ionized Calcium Ur Specific [place] Vancomycin Trough Coronavirus (PCR) 11/25/20 11/25/20 11/25/20 05:15 11:25 17:35 WBC RBC Hgb Hct Plt Count Lymph % (Auto) [place] % (Auto) Lymph # (Auto) [place] # (Auto) Baso # (Auto) Seg Neutrophils % Seg Neuts % (Manual) Lymphocytes % (Manual) Seg Neutrophils # Seg Neutrophils # Man Lymphocytes # (Manual) D-Dimer ABG pH POC ABG pCO2 POC ABG pO2 ABG pO2 ABG HCO3 ABG O2 Saturation ABG Base Excess ABG Hemoglobin ABG Oxyhemoglobin ABG Sodium ABG Potassium ABG Chloride ABG Glucose Oxyhemoglobin Sodium Potassium Chloride Carbon Dioxide BUN 29 H Creatinine 0.5 L Glucose 161 H POC Glucose 224 H 228 H Hemoglobin A1c Lactic Acid Calcium 7.8 L Ferritin Total Bilirubin AST 89 H ALT 129 H Alkaline Phosphatase Lactate Dehydrogenase C-Reactive Protein Total Protein 5.8 L Albumin 2.5 L Triglycerides Arterial Blood Glucose Arterial Blood Ionized Calcium Ur Specific [place] Vancomycin Trough Coronavirus (PCR) 11/25/20 11/25/20 11/26/20 20:45 23:28 04:00 WBC RBC Hgb Hct Plt Count Lymph % (Auto) [place] % (Auto) Lymph # (Auto) [place] # (Auto) Baso # (Auto) Seg Neutrophils % Seg Neuts % (Manual) Lymphocytes % (Manual) Seg Neutrophils # Seg Neutrophils # Man Lymphocytes # (Manual) D-Dimer ABG pH POC ABG pCO2 POC ABG pO2 ABG pO2 ABG HCO3 ABG O2 Saturation ABG Base Excess ABG Hemoglobin ABG Oxyhemoglobin ABG Sodium ABG Potassium ABG Chloride ABG Glucose Oxyhemoglobin Sodium Potassium Chloride Carbon Dioxide BUN Creatinine Glucose POC Glucose 177 H 243 H Hemoglobin A1c Lactic Acid Calcium Ferritin 778.8 H Total Bilirubin AST ALT Alkaline Phosphatase Lactate Dehydrogenase C-Reactive Protein Total Protein Albumin Triglycerides Arterial Blood Glucose Arterial Blood Ionized Calcium Ur Specific [place] Vancomycin Trough Coronavirus (PCR) 11/26/20 11/26/20 11/26/20 04:00 05:34 06:04 WBC RBC Hgb Hct Plt Count Lymph % (Auto) [place] % (Auto) Lymph # (Auto) [place] # (Auto) Baso # (Auto) Seg Neutrophils % Seg Neuts % (Manual) Lymphocytes % (Manual) Seg Neutrophils # Seg Neutrophils # Man Lymphocytes # (Manual) D-Dimer 926.11 H ABG pH POC ABG pCO2 POC ABG pO2 ABG pO2 ABG HCO3 ABG O2 Saturation ABG Base Excess ABG Hemoglobin ABG Oxyhemoglobin ABG Sodium ABG Potassium ABG Chloride ABG Glucose Oxyhemoglobin Sodium Potassium Chloride Carbon Dioxide 39 H D BUN 30 H Creatinine 0.5 L Glucose 193 H POC Glucose 178 H Hemoglobin A1c Lactic Acid Calcium 7.7 L Ferritin Total Bilirubin AST 65 H ALT 132 H Alkaline Phosphatase Lactate Dehydrogenase 288 H C-Reactive Protein 1.40 H Total Protein 5.7 L Albumin 2.4 L Triglycerides Arterial Blood Glucose Arterial Blood Ionized Calcium Ur Specific [place] Vancomycin Trough Coronavirus (PCR) 11/26/20 11/26/20 11/26/20 06:04 08:47 11:20 WBC 12.4 H RBC Hgb Hct Plt Count Lymph % (Auto) [place] % (Auto) Lymph # (Auto) [place] # (Auto) Baso # (Auto) Seg Neutrophils % Seg Neuts % (Manual) 98.0 H Lymphocytes % (Manual) 1.0 L Seg Neutrophils # Seg Neutrophils # Man 12.2 H Lymphocytes # (Manual) 0.1 L D-Dimer ABG pH POC ABG pCO2 75.2 H POC ABG pO2 61.9 L ABG pO2 ABG HCO3 ABG O2 Saturation ABG Base Excess ABG Hemoglobin ABG Oxyhemoglobin 90.3 L ABG Sodium ABG Potassium ABG Chloride ABG Glucose 243 H Oxyhemoglobin Sodium Potassium Chloride Carbon Dioxide BUN Creatinine Glucose POC Glucose 255 H Hemoglobin A1c Lactic Acid Calcium Ferritin Total Bilirubin AST ALT Alkaline Phosphatase Lactate Dehydrogenase C-Reactive Protein Total Protein Albumin Triglycerides Arterial Blood Glucose 243 H Arterial Blood Ionized Calcium Ur Specific [place] Vancomycin Trough Coronavirus (PCR) 11/26/20 11/26/20 11/26/20 16:20 17:15 23:41 WBC RBC Hgb Hct Plt Count Lymph % (Auto) [place] % (Auto) Lymph # (Auto) [place] # (Auto) Baso # (Auto) Seg Neutrophils % Seg Neuts % (Manual) Lymphocytes % (Manual) Seg Neutrophils # Seg Neutrophils # Man Lymphocytes # (Manual) D-Dimer ABG pH POC ABG pCO2 66.6 H POC ABG pO2 78.1 L ABG pO2 ABG HCO3 ABG O2 Saturation ABG Base Excess ABG Hemoglobin ABG Oxyhemoglobin ABG Sodium ABG Potassium ABG Chloride ABG Glucose 244 H Oxyhemoglobin Sodium Potassium Chloride Carbon Dioxide BUN Creatinine Glucose POC Glucose 219 H 210 H Hemoglobin A1c Lactic Acid Calcium Ferritin Total Bilirubin AST ALT Alkaline Phosphatase Lactate Dehydrogenase C-Reactive Protein Total Protein Albumin Triglycerides Arterial Blood Glucose 244 H Arterial Blood Ionized Calcium Ur Specific [place] Vancomycin Trough Coronavirus (PCR) 11/27/20 11/27/20 11/27/20 04:46 05:38 06:25 WBC 13.8 H RBC Hgb Hct Plt Count Lymph % (Auto) 2.0 L [place] % (Auto) Lymph # (Auto) 0.3 L [place] # (Auto) Baso # (Auto) Seg Neutrophils % Seg Neuts % (Manual) 96.0 H Lymphocytes % (Manual) Seg Neutrophils # 12.7 H Seg Neutrophils # Man 13.2 H Lymphocytes # (Manual) 0.0 L D-Dimer ABG pH POC ABG pCO2 63.0 H POC ABG pO2 53.6 L ABG pO2 ABG HCO3 ABG O2 Saturation ABG Base Excess ABG Hemoglobin ABG Oxyhemoglobin 87.8 L ABG Sodium 115.4 L ABG Potassium ABG Chloride ABG Glucose 219 H Oxyhemoglobin Sodium Potassium Chloride Carbon Dioxide BUN Creatinine Glucose POC Glucose 227 H Hemoglobin A1c Lactic Acid Calcium Ferritin Total Bilirubin AST ALT Alkaline Phosphatase Lactate Dehydrogenase C-Reactive Protein Total Protein Albumin Triglycerides Arterial Blood Glucose 219 H Arterial Blood Ionized Calcium Ur Specific [place] Vancomycin Trough Coronavirus (PCR) 11/27/20 11/27/20 11/27/20 06:25 18:05 23:29 WBC RBC Hgb Hct Plt Count Lymph % (Auto) [place] % (Auto) Lymph # (Auto) [place] # (Auto) Baso # (Auto) Seg Neutrophils % Seg Neuts % (Manual) Lymphocytes % (Manual) Seg Neutrophils # Seg Neutrophils # Man Lymphocytes # (Manual) D-Dimer ABG pH POC ABG pCO2 POC ABG pO2 ABG pO2 ABG HCO3 ABG O2 Saturation ABG Base Excess ABG Hemoglobin ABG Oxyhemoglobin ABG Sodium ABG Potassium ABG Chloride ABG Glucose Oxyhemoglobin Sodium Potassium Chloride Carbon Dioxide 38 H BUN 34 H Creatinine 0.4 L Glucose 243 H POC Glucose 329 H 227 H Hemoglobin A1c Lactic Acid Calcium 7.9 L Ferritin Total Bilirubin AST 50 H ALT 110 H Alkaline Phosphatase Lactate Dehydrogenase C-Reactive Protein Total Protein 6.1 L Albumin 2.4 L Triglycerides Arterial Blood Glucose Arterial Blood Ionized Calcium Ur Specific [place] Vancomycin Trough Coronavirus (PCR) 11/28/20 11/28/20 11/28/20 03:45 03:45 03:46 WBC 12.2 H RBC Hgb Hct Plt Count Lymph % (Auto) [place] % (Auto) Lymph # (Auto) [place] # (Auto) Baso # (Auto) Seg Neutrophils % Seg Neuts % (Manual) 93.0 H Lymphocytes % (Manual) 2.0 L Seg Neutrophils # Seg Neutrophils # Man 11.3 H Lymphocytes # (Manual) 0.2 L D-Dimer ABG pH POC ABG pCO2 68.4 H POC ABG pO2 55.4 L ABG pO2 ABG HCO3 ABG O2 Saturation ABG Base Excess ABG Hemoglobin ABG Oxyhemoglobin ABG Sodium ABG Potassium ABG Chloride ABG Glucose 197 H Oxyhemoglobin Sodium Potassium Chloride Carbon Dioxide 36 H BUN 37 H Creatinine 0.4 L Glucose 194 H POC Glucose Hemoglobin A1c Lactic Acid Calcium 8.1 L Ferritin Total Bilirubin AST ALT 86 H Alkaline Phosphatase Lactate Dehydrogenase C-Reactive Protein Total Protein 6.0 L Albumin 2.3 L Triglycerides Arterial Blood Glucose 197 H Arterial Blood Ionized Calcium Ur Specific [place] Vancomycin Trough Coronavirus (PCR) 11/28/20 11/28/20 11/29/20 05:24 12:21 04:41 WBC RBC Hgb Hct Plt Count Lymph % (Auto) [place] % (Auto) Lymph # (Auto) [place] # (Auto) Baso # (Auto) Seg Neutrophils % Seg Neuts % (Manual) Lymphocytes % (Manual) Seg Neutrophils # Seg Neutrophils # Man Lymphocytes # (Manual) D-Dimer ABG pH POC ABG pCO2 55.1 H POC ABG pO2 53.6 L ABG pO2 ABG HCO3 ABG O2 Saturation ABG Base Excess ABG Hemoglobin ABG Oxyhemoglobin 87.1 L ABG Sodium 131.2 L ABG Potassium ABG Chloride ABG Glucose 164 H Oxyhemoglobin Sodium Potassium Chloride Carbon Dioxide BUN Creatinine Glucose POC Glucose 173 H 126 H Hemoglobin A1c Lactic Acid Calcium Ferritin Total Bilirubin AST ALT Alkaline Phosphatase Lactate Dehydrogenase C-Reactive Protein Total Protein Albumin Triglycerides Arterial Blood Glucose 164 H Arterial Blood Ionized Calcium 4.4 L Ur Specific [place] Vancomycin Trough Coronavirus (PCR) 11/29/20 11/29/20 11/29/20 05:29 12:41 13:28 WBC RBC Hgb Hct Plt Count Lymph % (Auto) [place] % (Auto) Lymph # (Auto) [place] # (Auto) Baso # (Auto) Seg Neutrophils % Seg Neuts % (Manual) Lymphocytes % (Manual) Seg Neutrophils # Seg Neutrophils # Man Lymphocytes # (Manual) D-Dimer ABG pH POC ABG pCO2 POC ABG pO2 ABG pO2 ABG HCO3 ABG O2 Saturation ABG Base Excess ABG Hemoglobin ABG Oxyhemoglobin ABG Sodium ABG Potassium ABG Chloride ABG Glucose Oxyhemoglobin Sodium Potassium Chloride Carbon Dioxide 40 H BUN 32 H Creatinine 0.4 L Glucose 274 H POC Glucose 173 H 257 H Hemoglobin A1c Lactic Acid Calcium 7.2 L Ferritin Total Bilirubin AST 57 H ALT 102 H Alkaline Phosphatase Lactate Dehydrogenase C-Reactive Protein Total Protein 5.7 L Albumin 2.1 L Triglycerides Arterial Blood Glucose Arterial Blood Ionized Calcium Ur Specific [place] Vancomycin Trough Coronavirus (PCR) 11/29/20 11/29/20 11/29/20 15:40 17:36 21:26 WBC RBC Hgb Hct Plt Count Lymph % (Auto) [place] % (Auto) Lymph # (Auto) [place] # (Auto) Baso # (Auto) Seg Neutrophils % Seg Neuts % (Manual) Lymphocytes % (Manual) Seg Neutrophils # Seg Neutrophils # Man Lymphocytes # (Manual) D-Dimer ABG pH POC ABG pCO2 POC ABG pO2 ABG pO2 ABG HCO3 ABG O2 Saturation ABG Base Excess ABG Hemoglobin ABG Oxyhemoglobin ABG Sodium ABG Potassium ABG Chloride ABG Glucose Oxyhemoglobin Sodium Potassium Chloride Carbon Dioxide BUN Creatinine Glucose POC Glucose 240 H 244 H Hemoglobin A1c Lactic Acid Calcium Ferritin Total Bilirubin AST ALT Alkaline Phosphatase Lactate Dehydrogenase C-Reactive Protein Total Protein Albumin Triglycerides Arterial Blood Glucose Arterial Blood Ionized Calcium Ur Specific [place] Vancomycin Trough 4.0 L Coronavirus (PCR) 11/29/20 11/30/20 11/30/20 23:26 03:30 03:30 WBC RBC Hgb Hct Plt Count Lymph % (Auto) [place] % (Auto) Lymph # (Auto) [place] # (Auto) Baso # (Auto) Seg Neutrophils % Seg Neuts % (Manual) 97.0 H Lymphocytes % (Manual) 1.0 L Seg Neutrophils # Seg Neutrophils # Man 9.9 H Lymphocytes # (Manual) 0.1 L D-Dimer ABG pH POC ABG pCO2 POC ABG pO2 ABG pO2 ABG HCO3 ABG O2 Saturation ABG Base Excess ABG Hemoglobin ABG Oxyhemoglobin ABG Sodium ABG Potassium ABG Chloride ABG Glucose Oxyhemoglobin Sodium Potassium Chloride Carbon Dioxide 38 H BUN 34 H Creatinine 0.4 L Glucose 305 H POC Glucose 283 H Hemoglobin A1c Lactic Acid Calcium 7.6 L Ferritin Total Bilirubin AST ALT 89 H Alkaline Phosphatase Lactate Dehydrogenase C-Reactive Protein Total Protein 6.0 L Albumin 2.3 L Triglycerides Arterial Blood Glucose Arterial Blood Ionized Calcium Ur Specific [place] Vancomycin Trough Coronavirus (PCR) 11/30/20 11/30/20 11/30/20 03:57 05:22 12:05 WBC RBC Hgb Hct Plt Count Lymph % (Auto) [place] % (Auto) Lymph # (Auto) [place] # (Auto) Baso # (Auto) Seg Neutrophils % Seg Neuts % (Manual) Lymphocytes % (Manual) Seg Neutrophils # Seg Neutrophils # Man Lymphocytes # (Manual) D-Dimer ABG pH POC ABG pCO2 60.8 H POC ABG pO2 51.1 L ABG pO2 ABG HCO3 ABG O2 Saturation ABG Base Excess ABG Hemoglobin ABG Oxyhemoglobin 84.6 L ABG Sodium ABG Potassium ABG Chloride ABG Glucose 315 H Oxyhemoglobin Sodium Potassium Chloride Carbon Dioxide BUN Creatinine Glucose POC Glucose 295 H 413 H Hemoglobin A1c Lactic Acid Calcium Ferritin Total Bilirubin AST ALT Alkaline Phosphatase Lactate Dehydrogenase C-Reactive Protein Total Protein Albumin Triglycerides Arterial Blood Glucose 315 H Arterial Blood Ionized Calcium 4.5 L Ur Specific [place] Vancomycin Trough Coronavirus (PCR) 11/30/20 11/30/20 12/01/20 17:24 23:25 02:14 WBC RBC Hgb Hct Plt Count Lymph % (Auto) [place] % (Auto) Lymph # (Auto) [place] # (Auto) Baso # (Auto) Seg Neutrophils % Seg Neuts % (Manual) Lymphocytes % (Manual) Seg Neutrophils # Seg Neutrophils # Man Lymphocytes # (Manual) D-Dimer ABG pH 7.278 L POC ABG pCO2 78.1 H POC ABG pO2 79.5 L ABG pO2 ABG HCO3 ABG O2 Saturation ABG Base Excess ABG Hemoglobin 11.6 L ABG Oxyhemoglobin ABG Sodium 134.5 L ABG Potassium 4.6 H ABG Chloride ABG Glucose 286 H Oxyhemoglobin Sodium Potassium Chloride Carbon Dioxide BUN Creatinine Glucose POC Glucose 305 H 302 H Hemoglobin A1c Lactic Acid Calcium Ferritin Total Bilirubin AST ALT Alkaline Phosphatase Lactate Dehydrogenase C-Reactive Protein Total Protein Albumin Triglycerides Arterial Blood Glucose 286 H Arterial Blood Ionized Calcium Ur Specific [place] Vancomycin Trough Coronavirus (PCR) 12/01/20 12/01/20 12/01/20 03:35 03:35 05:22 WBC 13.4 H RBC 3.54 L Hgb 10.4 L Hct 31.8 L Plt Count Lymph % (Auto) [place] % (Auto) Lymph # (Auto) [place] # (Auto) Baso # (Auto) Seg Neutrophils % Seg Neuts % (Manual) 95.0 H Lymphocytes % (Manual) 3.0 L Seg Neutrophils # Seg Neutrophils # Man 12.7 H Lymphocytes # (Manual) 0.4 L D-Dimer ABG pH POC ABG pCO2 POC ABG pO2 ABG pO2 ABG HCO3 ABG O2 Saturation ABG Base Excess ABG Hemoglobin ABG Oxyhemoglobin ABG Sodium ABG Potassium ABG Chloride ABG Glucose Oxyhemoglobin Sodium Potassium Chloride Carbon Dioxide 35 H BUN 34 H Creatinine 0.5 L Glucose 279 H POC Glucose 259 H Hemoglobin A1c Lactic Acid Calcium 7.6 L Ferritin Total Bilirubin AST ALT 63 H Alkaline Phosphatase Lactate Dehydrogenase C-Reactive Protein Total Protein 4.8 L Albumin 2.1 L Triglycerides Arterial Blood Glucose Arterial Blood Ionized Calcium Ur Specific [place] Vancomycin Trough Coronavirus (PCR) 12/01/20 12/01/20 12/01/20 12:05 17:40 23:46 WBC RBC Hgb Hct Plt Count Lymph % (Auto) [place] % (Auto) Lymph # (Auto) [place] # (Auto) Baso # (Auto) Seg Neutrophils % Seg Neuts % (Manual) Lymphocytes % (Manual) Seg Neutrophils # Seg Neutrophils # Man Lymphocytes # (Manual) D-Dimer ABG pH POC ABG pCO2 POC ABG pO2 ABG pO2 ABG HCO3 ABG O2 Saturation ABG Base Excess ABG Hemoglobin ABG Oxyhemoglobin ABG Sodium ABG Potassium ABG Chloride ABG Glucose Oxyhemoglobin Sodium Potassium Chloride Carbon Dioxide BUN Creatinine Glucose POC Glucose 197 H 244 H 284 H Hemoglobin A1c Lactic Acid Calcium Ferritin Total Bilirubin AST ALT Alkaline Phosphatase Lactate Dehydrogenase C-Reactive Protein Total Protein Albumin Triglycerides Arterial Blood Glucose Arterial Blood Ionized Calcium Ur Specific [place] Vancomycin Trough Coronavirus (PCR) 12/02/20 12/02/20 12/02/20 02:14 03:03 04:11 WBC 16.5 H RBC 3.55 L Hgb 10.5 L Hct 31.9 L Plt Count Lymph % (Auto) [place] % (Auto) Lymph # (Auto) [place] # (Auto) Baso # (Auto) Seg Neutrophils % Seg Neuts % (Manual) 90.0 H Lymphocytes % (Manual) 3.0 L Seg Neutrophils # Seg Neutrophils # Man 14.9 H Lymphocytes # (Manual) 0.5 L D-Dimer ABG pH POC ABG pCO2 74.8 H POC ABG pO2 58.9 L ABG pO2 ABG HCO3 ABG O2 Saturation ABG Base Excess ABG Hemoglobin 11.5 L ABG Oxyhemoglobin ABG Sodium ABG Potassium ABG Chloride ABG Glucose 264 H Oxyhemoglobin Sodium Potassium Chloride Carbon Dioxide 37 H BUN 30 H Creatinine 0.4 L Glucose 245 H POC Glucose Hemoglobin A1c Lactic Acid Calcium 7.5 L Ferritin Total Bilirubin AST ALT Alkaline Phosphatase Lactate Dehydrogenase C-Reactive Protein Total Protein 5.2 L Albumin 2.2 L Triglycerides Arterial Blood Glucose 264 H Arterial Blood Ionized Calcium 4.5 L Ur Specific [place] Vancomycin Trough Coronavirus (PCR) 12/02/20 12/02/20 12/02/20 05:19 11:46 17:52 WBC RBC Hgb Hct Plt Count Lymph % (Auto) [place] % (Auto) Lymph # (Auto) [place] # (Auto) Baso # (Auto) Seg Neutrophils % Seg Neuts % (Manual) Lymphocytes % (Manual) Seg Neutrophils # Seg Neutrophils # Man Lymphocytes # (Manual) D-Dimer ABG pH POC ABG pCO2 POC ABG pO2 ABG pO2 ABG HCO3 ABG O2 Saturation ABG Base Excess ABG Hemoglobin ABG Oxyhemoglobin ABG Sodium ABG Potassium ABG Chloride ABG Glucose Oxyhemoglobin Sodium Potassium Chloride Carbon Dioxide BUN Creatinine Glucose POC Glucose 238 H 236 H 233 H Hemoglobin A1c Lactic Acid Calcium Ferritin Total Bilirubin AST ALT Alkaline Phosphatase Lactate Dehydrogenase C-Reactive Protein Total Protein Albumin Triglycerides Arterial Blood Glucose Arterial Blood Ionized Calcium Ur Specific [place] Vancomycin Trough Coronavirus (PCR) 12/02/20 12/03/20 12/03/20 23:23 03:21 04:35 WBC RBC Hgb Hct Plt Count 112 L Lymph % (Auto) [place] % (Auto) Lymph # (Auto) [place] # (Auto) Baso # (Auto) Seg Neutrophils % Seg Neuts % (Manual) 93.0 H Lymphocytes % (Manual) 4.0 L Seg Neutrophils # Seg Neutrophils # Man 9.1 H Lymphocytes # (Manual) 0.4 L D-Dimer ABG pH 7.299 L POC ABG pCO2 82.1 H POC ABG pO2 62.4 L ABG pO2 ABG HCO3 ABG O2 Saturation ABG Base Excess ABG Hemoglobin 11.5 L ABG Oxyhemoglobin 89.6 L ABG Sodium 134.3 L ABG Potassium ABG Chloride 95.0 L ABG Glucose 203 H Oxyhemoglobin Sodium Potassium Chloride Carbon Dioxide BUN Creatinine Glucose POC Glucose 213 H Hemoglobin A1c Lactic Acid Calcium Ferritin Total Bilirubin AST ALT Alkaline Phosphatase Lactate Dehydrogenase C-Reactive Protein Total Protein Albumin Triglycerides Arterial Blood Glucose 203 H Arterial Blood Ionized Calcium 4.5 L Ur Specific [place] Vancomycin Trough Coronavirus (PCR) 12/03/20 12/03/20 12/03/20 04:35 05:42 11:28 WBC RBC Hgb Hct Plt Count Lymph % (Auto) [place] % (Auto) Lymph # (Auto) [place] # (Auto) Baso # (Auto) Seg Neutrophils % Seg Neuts % (Manual) Lymphocytes % (Manual) Seg Neutrophils # Seg Neutrophils # Man Lymphocytes # (Manual) D-Dimer ABG pH POC ABG pCO2 POC ABG pO2 ABG pO2 ABG HCO3 ABG O2 Saturation ABG Base Excess ABG Hemoglobin ABG Oxyhemoglobin ABG Sodium ABG Potassium ABG Chloride ABG Glucose Oxyhemoglobin Sodium Potassium Chloride 97.8 L Carbon Dioxide 43 H* BUN 25 H Creatinine 0.3 L Glucose 214 H POC Glucose 193 H 211 H Hemoglobin A1c Lactic Acid Calcium 7.7 L Ferritin Total Bilirubin AST ALT 63 H Alkaline Phosphatase 132 H Lactate Dehydrogenase C-Reactive Protein Total Protein 5.1 L Albumin 2.4 L Triglycerides Arterial Blood Glucose Arterial Blood Ionized Calcium Ur Specific [place] Vancomycin Trough Coronavirus (PCR) 12/03/20 12/03/20 12/04/20 17:45 23:57 00:11 WBC RBC Hgb Hct Plt Count Lymph % (Auto) [place] % (Auto) Lymph # (Auto) [place] # (Auto) Baso # (Auto) Seg Neutrophils % Seg Neuts % (Manual) Lymphocytes % (Manual) Seg Neutrophils # Seg Neutrophils # Man Lymphocytes # (Manual) D-Dimer ABG pH POC ABG pCO2 POC ABG pO2 ABG pO2 ABG HCO3 ABG O2 Saturation ABG Base Excess ABG Hemoglobin ABG Oxyhemoglobin ABG Sodium ABG Potassium ABG Chloride ABG Glucose Oxyhemoglobin Sodium Potassium Chloride Carbon Dioxide BUN Creatinine Glucose POC Glucose 231 H 240 H 239 H Hemoglobin A1c Lactic Acid Calcium Ferritin Total Bilirubin AST ALT Alkaline Phosphatase Lactate Dehydrogenase C-Reactive Protein Total Protein Albumin Triglycerides Arterial Blood Glucose Arterial Blood Ionized Calcium Ur Specific [place] Vancomycin Trough Coronavirus (PCR) 12/04/20 12/04/20 12/04/20 04:00 05:20 05:34 WBC RBC Hgb Hct Plt Count Lymph % (Auto) [place] % (Auto) Lymph # (Auto) [place] # (Auto) Baso # (Auto) Seg Neutrophils % Seg Neuts % (Manual) Lymphocytes % (Manual) Seg Neutrophils # Seg Neutrophils # Man Lymphocytes # (Manual) D-Dimer ABG pH POC ABG pCO2 84.4 H POC ABG pO2 68.0 L ABG pO2 ABG HCO3 ABG O2 Saturation ABG Base Excess ABG Hemoglobin 11.6 L ABG Oxyhemoglobin ABG Sodium 130.9 L ABG Potassium ABG Chloride 90.0 L ABG Glucose 244 H Oxyhemoglobin Sodium Potassium Chloride Carbon Dioxide BUN Creatinine Glucose POC Glucose 241 H 213 H Hemoglobin A1c Lactic Acid Calcium Ferritin Total Bilirubin AST ALT Alkaline Phosphatase Lactate Dehydrogenase C-Reactive Protein Total Protein Albumin Triglycerides Arterial Blood Glucose 244 H Arterial Blood Ionized Calcium 4.4 L Ur Specific [place] Vancomycin Trough Coronavirus (PCR) 12/04/20 12/04/20 12/04/20 11:36 16:53 23:32 WBC RBC Hgb Hct Plt Count Lymph % (Auto) [place] % (Auto) Lymph # (Auto) [place] # (Auto) Baso # (Auto) Seg Neutrophils % Seg Neuts % (Manual) Lymphocytes % (Manual) Seg Neutrophils # Seg Neutrophils # Man Lymphocytes # (Manual) D-Dimer ABG pH POC ABG pCO2 POC ABG pO2 ABG pO2 ABG HCO3 ABG O2 Saturation ABG Base Excess ABG Hemoglobin ABG Oxyhemoglobin ABG Sodium ABG Potassium ABG Chloride ABG Glucose Oxyhemoglobin Sodium Potassium Chloride Carbon Dioxide BUN Creatinine Glucose POC Glucose 196 H 127 H 230 H Hemoglobin A1c Lactic Acid Calcium Ferritin Total Bilirubin AST ALT Alkaline Phosphatase Lactate Dehydrogenase C-Reactive Protein Total Protein Albumin Triglycerides Arterial Blood Glucose Arterial Blood Ionized Calcium Ur Specific [place] Vancomycin Trough Coronavirus (PCR) 12/04/20 12/05/20 12/05/20 Unknown 04:16 05:21 WBC RBC Hgb Hct Plt Count Lymph % (Auto) [place] % (Auto) Lymph # (Auto) [place] # (Auto) Baso # (Auto) Seg Neutrophils % Seg Neuts % (Manual) Lymphocytes % (Manual) Seg Neutrophils # Seg Neutrophils # Man Lymphocytes # (Manual) D-Dimer ABG pH POC ABG pCO2 86.7 H POC ABG pO2 58.0 L ABG pO2 ABG HCO3 ABG O2 Saturation ABG Base Excess ABG Hemoglobin 11.6 L ABG Oxyhemoglobin 89 L ABG Sodium 130.1 L ABG Potassium 4.9 H ABG Chloride 89.0 L ABG Glucose 254 H Oxyhemoglobin Sodium 136 L Potassium Chloride 90.0 L Carbon Dioxide 46 H* BUN 24 H Creatinine 0.3 L Glucose 226 H POC Glucose 213 H Hemoglobin A1c Lactic Acid Calcium 7.6 L Ferritin Total Bilirubin AST 46 H ALT 78 H Alkaline Phosphatase 172 H Lactate Dehydrogenase C-Reactive Protein Total Protein 6.0 L Albumin 2.8 L Triglycerides 156 H Arterial Blood Glucose 254 H Arterial Blood Ionized Calcium 4.4 L Ur Specific [place] Vancomycin Trough Coronavirus (PCR) 12/05/20 12/05/20 12/05/20 11:22 17:26 23:38 WBC RBC Hgb Hct Plt Count Lymph % (Auto) [place] % (Auto) Lymph # (Auto) [place] # (Auto) Baso # (Auto) Seg Neutrophils % Seg Neuts % (Manual) Lymphocytes % (Manual) Seg Neutrophils # Seg Neutrophils # Man Lymphocytes # (Manual) D-Dimer ABG pH POC ABG pCO2 POC ABG pO2 ABG pO2 ABG HCO3 ABG O2 Saturation ABG Base Excess ABG Hemoglobin ABG Oxyhemoglobin ABG Sodium ABG Potassium ABG Chloride ABG Glucose Oxyhemoglobin Sodium Potassium Chloride Carbon Dioxide BUN Creatinine Glucose POC Glucose 212 H 157 H 204 H Hemoglobin A1c Lactic Acid Calcium Ferritin Total Bilirubin AST ALT Alkaline Phosphatase Lactate Dehydrogenase C-Reactive Protein Total Protein Albumin Triglycerides Arterial Blood Glucose Arterial Blood Ionized Calcium Ur Specific [place] Vancomycin Trough Coronavirus (PCR) 12/06/20 12/06/20 12/06/20 04:31 04:31 05:12 WBC 17.0 H RBC 3.63 L Hgb 10.8 L D Hct 32.6 L D Plt Count Lymph % (Auto) [place] % (Auto) Lymph # (Auto) [place] # (Auto) Baso # (Auto) Seg Neutrophils % Seg Neuts % (Manual) Lymphocytes % (Manual) Seg Neutrophils # Seg Neutrophils # Man Lymphocytes # (Manual) D-Dimer ABG pH POC ABG pCO2 85.9 H POC ABG pO2 57.6 L ABG pO2 ABG HCO3 ABG O2 Saturation ABG Base Excess ABG Hemoglobin ABG Oxyhemoglobin ABG Sodium 131.2 L ABG Potassium 4.8 H ABG Chloride 86.0 L ABG Glucose 200 H Oxyhemoglobin Sodium 134 L Potassium 5.1 H Chloride 88.4 L Carbon Dioxide 47 H* BUN 23 H Creatinine 0.3 L Glucose 206 H POC Glucose Hemoglobin A1c Lactic Acid Calcium 8.3 L Ferritin Total Bilirubin AST 48 H ALT 91 H Alkaline Phosphatase 140 H Lactate Dehydrogenase C-Reactive Protein Total Protein 5.7 L Albumin 2.6 L Triglycerides Arterial Blood Glucose 200 H Arterial Blood Ionized Calcium 4.4 L Ur Specific [place] Vancomycin Trough Coronavirus (PCR) 12/06/20 12/06/20 12/06/20 05:24 12:18 16:45 WBC RBC Hgb Hct Plt Count Lymph % (Auto) [place] % (Auto) Lymph # (Auto) [place] # (Auto) Baso # (Auto) Seg Neutrophils % Seg Neuts % (Manual) Lymphocytes % (Manual) Seg Neutrophils # Seg Neutrophils # Man Lymphocytes # (Manual) D-Dimer ABG pH POC ABG pCO2 POC ABG pO2 ABG pO2 ABG HCO3 ABG O2 Saturation ABG Base Excess ABG Hemoglobin ABG Oxyhemoglobin ABG Sodium ABG Potassium ABG Chloride ABG Glucose Oxyhemoglobin Sodium Potassium Chloride Carbon Dioxide BUN Creatinine Glucose POC Glucose 186 H 187 H 150 H Hemoglobin A1c Lactic Acid Calcium Ferritin Total Bilirubin AST ALT Alkaline Phosphatase Lactate Dehydrogenase C-Reactive Protein Total Protein Albumin Triglycerides Arterial Blood Glucose Arterial Blood Ionized Calcium Ur Specific [place] Vancomycin Trough Coronavirus (PCR) 12/06/20 12/07/20 23:43 05:20 WBC RBC Hgb Hct Plt Count Lymph % (Auto) [place] % (Auto) Lymph # (Auto) [place] # (Auto) Baso # (Auto) Seg Neutrophils % Seg Neuts % (Manual) Lymphocytes % (Manual) Seg Neutrophils # Seg Neutrophils # Man Lymphocytes # (Manual) D-Dimer ABG pH POC ABG pCO2 POC ABG pO2 ABG pO2 48.4 L ABG HCO3 50.8 H ABG O2 Saturation 86.2 L ABG Base Excess 22.4 H ABG Hemoglobin 11.0 L ABG Oxyhemoglobin ABG Sodium ABG Potassium ABG Chloride ABG Glucose Oxyhemoglobin 84.0 L Sodium Potassium Chloride Carbon Dioxide BUN Creatinine Glucose POC Glucose 153 H Hemoglobin A1c Lactic Acid Calcium Ferritin Total Bilirubin AST ALT Alkaline Phosphatase Lactate Dehydrogenase C-Reactive Protein Total Protein Albumin Triglycerides Arterial Blood Glucose Arterial Blood Ionized Calcium Ur Specific [place] Vancomycin Trough Coronavirus (PCR)
[2020-12-07 14:00] LABS: Blood Urea Nitrogen 20 mg/dL (9-20); Calcium 7.7 mg/dL (8.4-10.2); Hemolysis Index 1
[2020-12-07 14:07] LABS: BUN/Creatinine Ratio 100
--- NOTE | 2020-12-07 16:32 | Progress Note ---
Assessment and Plan 59-year-old male with 1. COVID PNA 2. VDRF 3. sepsis 4. Bilateral pneumothorax s/p bilateral chest tube placement CXR 12/07/2020: Satisfactory positioning of chest tubes. Tiny apical PTX b/l - unchanged. SubQ emphysema b/l VENT: FIO2 70%, PEEP 18, TV: 350 RR: 30 Patient with increase in subq emphysema since last evaluation. B/L chest tubes in place and patent. Continues to require high PEEP. Plan: 1. Vent management per ICU team 2. Continue b/l chest tubes to -[id number] suction 3. routine CXRs 4. DVT ppx 5. No indication to place additional chest tubes as CXR does not show worsening PTX. SubQ emphysema will remain persistent until PEEP can be weaned. If chest tube becomes clogged or PTX worsening on CXR, then may consider placement of another tube. Very guarded prognosis. Thank you for this consultation. Please call with any questions or concerns. Evaluation and treatment of this patient was during the time of the national and state emergency arising from COVID19 coronavirus pandemic. Treatment and proced ures performed meet the current and available best practice and guidelines for patient during the COVID pandemic. Subjective Date of service: 12/07/20 Narrative: Pt seen and examined. No significant change in condition since last evaluation. On low dose pressors due to hypotension. Remains on ventilator. Objective Vital Signs - 12hr 12/07/20 12/07/20 12/07/20 04:34 05:00 06:00 Temperature Pulse Rate 79 85 95 H Pulse Rate [ From Monitor] Respiratory 25 H 30 H Rate Blood Pressure 92/57 195/100 152/83 O2 Sat by Pulse 94 93 91 Oximetry 12/07/20 12/07/20 12/07/20 07:00 07:11 07:24 Temperature 98.1 F Pulse Rate 85 89 Pulse Rate [ From Monitor] Respiratory 30 H Rate Blood Pressure 86/49 90/55 O2 Sat by Pulse 91 92 Oximetry 12/07/20 12/07/20 12/07/20 08:00 09:00 10:00 Temperature Pulse Rate 76 85 92 H Pulse Rate [ 90 From Monitor] Respiratory 30 H 25 H 31 H Rate Blood Pressure 93/53 169/80 163/83 O2 Sat by Pulse 95 88 85 Oximetry 12/07/20 12/07/20 12/07/20 11:00 11:29 12:00 Temperature Pulse Rate 95 H 90 88 Pulse Rate [ 90 From Monitor] Respiratory 30 H 30 H Rate Blood Pressure 104/57 104/57 100/51 O2 Sat by Pulse 95 95 95 Oximetry 12/07/20 12/07/20 12/07/20 13:00 14:00 15:00 Temperature 98.3 F Pulse Rate 81 84 86 Pulse Rate [ From Monitor] Respiratory 30 H 30 H 30 H Rate Blood Pressure 113/53 103/61 120/56 O2 Sat by Pulse 94 94 96 Oximetry 12/07/20 12/07/20 15:14 16:10 Temperature 98.6 F Pulse Rate 85 Pulse Rate [ From Monitor] Respiratory Rate Blood Pressure 120/56 O2 Sat by Pulse 96 Oximetry - General physical appearance Narrative Exam: Gen.: Intubated, sedated. Generalized anasarca ENT: ET tube and OG tube in place. Trachea midline. Large amount of subq emphysema b/l neck, face, chest. CV: S1, S2 present Respiratory: Bilateral chest tubes patent. Serosang drainage from b/l chest tubes - minimal. No active bleeding at chest tube insertion sites. No air leak. Extremities: Generalized edema - Labs 12/06/20 04:31 12/07/20 13:20 Diabetes panel 12/07/20 Range/Units 13:20 Sodium 134 L (137-145) mmol/L Potassium 4.9 (3.6-5.0) mmol/L Chloride 87.4 L (98-107) mmol/L Carbon Dioxide 49 H* (22-30) mmol/L BUN 20 (9-20) mg/dL Creatinine 0.2 L (0.8-1.3) mg/dL Glucose 132 H (75-100) mg/dL Calcium 7.7 L (8.4-10.2) mg/dL Calcium panel 12/07/20 Range/Units 13:20 Calcium 7.7 L (8.4-10.2) mg/dL Pituitary panel 12/07/20 Range/Units 13:20 Sodium 134 L (137-145) mmol/L Potassium 4.9 (3.6-5.0) mmol/L Chloride 87.4 L (98-107) mmol/L Carbon Dioxide 49 H* (22-30) mmol/L BUN 20 (9-20) mg/dL Creatinine 0.2 L (0.8-1.3) mg/dL Glucose 132 H (75-100) mg/dL Calcium 7.7 L (8.4-10.2) mg/dL Adrenal panel 12/07/20 Range/Units 13:20 Sodium 134 L (137-145) mmol/L Potassium 4.9 (3.6-5.0) mmol/L Chloride 87.4 L (98-107) mmol/L Carbon Dioxide 49 H* (22-30) mmol/L BUN 20 (9-20) mg/dL Creatinine 0.2 L (0.8-1.3) mg/dL Glucose 132 H (75-100) mg/dL Calcium 7.7 L (8.4-10.2) mg/dL
--- NOTE | 2020-12-07 16:46 | Progress Note ---
Assessment and Plan Cultures: SARS CoV-2 PCR: positive Blood culture: No growth 11/21/2020 tracheal aspirate culture: MRSA A/P: 59-year-old male: #Bilateral pneumonia: secondary to COVID-19. Admission labs showed leukocytosis, D-dimer greater than 10,000, ferritin 672, CRP 19.8, LDH 663, creatinine 0.6, procalcitonin 0.51. Completed 5 days of abx, remdesivir. #MRSA on ET aspirate culture, ?colonization v/s true disease, difficult to differentiate. S/P abx. #Right-sided pneumothorax and pneumomediastinum: Underwent placement of right- sided chest tube, likely secondary to COVID-19. #Acute hypoxic respiratory failure: Failed BiPAP. Remains on the vent. #Elevated d-dimer: DVT scan negative. Unable to get CTA Chest due to patients unstable clinical status #Transaminitis: secondary to COVID-19. Recs: -leucocytosis is probably from steroids (solumedrol) -continue off antibiotics at this time -Continue prophylactic anticoagulation based on d-dimer per hospital protocol -guarded prognosis Rm Carrillo MD [facility] O: [phone] F: [phone] Subjective Date of service: 12/07/20 Principal diagnosis: COVID-19 Interval history: Afebrile, white count 17. Objective - Exam Narrative Exam: Physical exam deferred due to PPE conservation strategy. Please refer to primary team's note. - Constitutional Vitals: Vital Signs Temp Pulse Resp BP Pulse Ox 98.6 F 81 30 H 140/56 95 12/07/20 16:10 12/07/20 16:00 12/07/20 16:00 12/07/20 16:00 12/07/20 16:00 Temperature -Last 24 Hours Temperature 98.6 F Temperature 98.3 F Temperature 98.1 F Temperature 98.8 F Temperature 98.0 F Temperature 98.7 F - Labs CBC & Chem 7: 12/06/20 04:31 12/07/20 13:20 Labs: Abnormal lab results 12/06/20 12/06/20 12/07/20 Range/Units 16:45 23:43 05:20 ABG pO2 48.4 L (80.0-90.0) mm Hg ABG HCO3 50.8 H (20.0-26.0) mmol/L ABG O2 Saturation 86.2 L (95.0-99.0) % ABG Base Excess 22.4 H (-2.0-3.0) mmol/L ABG Hemoglobin 11.0 L (14.0-18.0) gm/dl Oxyhemoglobin 84.0 L (95.0-99.0) % Sodium (137-145) mmol/L Chloride (98-107) mmol/L Carbon Dioxide (22-30) mmol/L Creatinine (0.8-1.3) mg/dL Glucose (75-100) mg/dL POC Glucose 150 H 153 H (70-105) mg/dL Calcium (8.4-10.2) mg/dL 12/07/20 12/07/20 Range/Units 05:21 13:20 ABG pO2 (80.0-90.0) mm Hg ABG HCO3 (20.0-26.0) mmol/L ABG O2 Saturation (95.0-99.0) % ABG Base Excess (-2.0-3.0) mmol/L ABG Hemoglobin (14.0-18.0) gm/dl Oxyhemoglobin (95.0-99.0) % Sodium 134 L (137-145) mmol/L Chloride 87.4 L (98-107) mmol/L Carbon Dioxide 49 H* (22-30) mmol/L Creatinine 0.2 L (0.8-1.3) mg/dL Glucose 132 H (75-100) mg/dL POC Glucose 107 H (70-105) mg/dL Calcium 7.7 L (8.4-10.2) mg/dL
[2020-12-07] MEDS: MIDAZOLAM 100 MG in SODIUM CHLORIDE 0.9% 80 ML IV SCH (17:31)
[2020-12-07] MEDS: ENOXAPARIN 40 MG/0.4 ML INJ SUB-Q SCH (21:02)
[2020-12-08] MEDS: INSULIN LISPRO 100 UNIT/ML SUB-Q SCH ×4 (00:23→17:55)
[2020-12-08] MEDS: fentaNYL DRIP Premix 2,000 MCG/100 ML BAG IV SCH ×4 (00:52→21:43)
[2020-12-08 05:21] LABS: ABG Base Excess 21.6 mmol/L (-2.0-3.0); ABG HCO3 50.1 mmol/L (20.0-26.0); ABG PCO2 81.3 mm Hg; ABG PH 7.408 pH Units (7.350-7.450); ABG PO2 69.7 mm Hg (80.0-90.0)
[2020-12-08 05:22] LABS: ABG Methemoglobin 0.4 % (0.0-1.5); ABG Oxygen Saturation 95.4 % (95.0-99.0)
[2020-12-08 06:20] LABS: Hematocrit 28.9 % (35.5-45.6); Hemoglobin 9.5 gm/dl (11.8-15.2); Mean Corpuscular HGB Conc 33 % (32-34); Mean Corpuscular Volume 91 fl (84-94); Platelet Count 159 K/mm3 (140-440); Red Blood Count 3.18 M/mm3 (3.65-5.03); Red Cell Distribution Width 13.8 % (13.2-15.2)
[2020-12-08 06:35] LABS: Blood Urea Nitrogen 17 mg/dL (9-20); Calcium 7.6 mg/dL (8.4-10.2); Hemolysis Index 4
[2020-12-08 06:36] LABS: BUN/Creatinine Ratio 85
[2020-12-08 07:04] LABS: Total Cells Counted 100
[2020-12-08 07:05] LABS: Hypochromasia 1+; Platelet Estimate Consistent w Auto
--- NOTE | 2020-12-08 08:10 | Progress Note ---
Assessment and Plan Assessment and plan: --Acute hypoxic hypercapnic respiratory failure ; requiring intubation and mechanical ventilation Continue ventilatory support, pulmonary critical following Wean as tolerated and extubate, nebulizers IV steroids ID and pulmonary critical following Home oxygen evaluation when patient is stable --Bilateral pneumothorax; status post bilateral chest tube placement Mild improvement, continue supportive care, surgery pulmonary following --Pneumomediastinum, subcutaneous emphysema, Continue supportive care, surgery following --Leukocytosis --Type II Diabetes Mellitus Accu-Chek sliding scale coverage ADA diet Long-acting insulin as needed --Bilateral Covid pneumonia Management per protocols ID pulmonary following --Sepsis secondary to MRSA pneumonia Continue vancomycin Follow cultures Plan discussed with nursing staff. Rocket Assembly Operator have discussed with the patient's brother. No new updates at this time The high probability of a clinically significant, sudden or life threatening deterioration of the [pulmonary] system(s) required my full and direct attention, intervention and personal management. The aggregate critical care time was [35] minutes. This time is in addition to time spent performing reported procedures but includes the following: [X] Data Review and interpretation [X] Patient assessment and monitoring of vital signs [X] Documentation [X] Medication orders and management History Interval history: I seen and examined the patient at the bedside this morning in ICU Isolation precautions PPE protocols strictly followed per guidelines Patient remains intubated on ventilatory support Sedated, not in acute distress but chronically ill looking Vital signs noted Hospitalist Physical - Constitutional Vitals: Temp Pulse Resp BP Pulse Ox 98.2 F 83 30 H 84/45 97 12/08/20 03:21 12/08/20 06:00 12/08/20 06:00 12/08/20 06:00 12/08/20 06:00 General appearance: Present: mild distress, well-nourished, obese - EENT Eyes: Present: PERRL, EOM intact ENT: other (ET tube and Dobbhoff in place) - Neck Neck: Present: supple, normal ROM - Respiratory Respiratory effort: normal Respiratory: bilateral: diminished, rhonchi, negative: rales, wheezing - Cardiovascular Rhythm: regular Heart Sounds: Present: S1 & S2 - Extremities Extremities: no ischemia, No edema - Abdominal General gastrointestinal: soft, non-tender, non-distended, normal bowel sounds - Integumentary Integumentary: Present: clear, warm - Psychiatric Psychiatric: appropriate mood/affect, cooperative - Neurologic Neurologic: CNII-XII intact, moves all extremities HEART Score - HEART Score Troponin: Troponin T < 0.010 ng/mL (0.00-0.029) 11/22/20 Unknown Results - Labs CBC & Chem 7: 12/08/20 06:10 12/08/20 06:10 Labs: Laboratory Last Values WBC 12.0 K/mm3 (4.5-11.0) H 12/08/20 06:10 RBC 3.18 M/mm3 (3.65-5.03) L 12/08/20 06:10 Hgb 9.5 gm/dl (11.8-15.2) L 12/08/20 06:10 Hct 28.9 % (35.5-45.6) L 12/08/20 06:10 MCV 91 fl (84-94) 12/08/20 06:10 MCH 30 pg (28-32) 12/08/20 06:10 MCHC 33 % (32-34) 12/08/20 06:10 RDW 13.8 % (13.2-15.2) 12/08/20 06:10 Plt Count 159 K/mm3 (140-440) 12/08/20 06:10 Lymph % (Auto) 2.0 % (13.4-35.0) L 11/27/20 06:25 Barber % (Auto) 5.2 % (0.0-7.3) 11/27/20 06:25 Eos % (Auto) 0.0 % (0.0-4.3) 11/27/20 06:25 Baso % (Auto) 0.1 % (0.0-1.8) 11/27/20 06:25 Lymph # (Auto) 0.3 K/mm3 (1.2-5.4) L 11/27/20 06:25 Barber # (Auto) 0.7 K/mm3 (0.0-0.8) 11/27/20 06:25 Eos # (Auto) 0.0 K/mm3 (0.0-0.4) 11/27/20 06:25 Baso # (Auto) 0.0 K/mm3 (0.0-0.1) 11/27/20 06:25 Add Manual Diff Complete 12/08/20 06:10 Total Counted 100 12/08/20 06:10 Seg Neutrophils % Hospital Receptionist 12/08/20 06:10 Seg Neuts % (Manual) 95.0 % (40.0-70.0) H 12/08/20 06:10 Band Neutrophils % 2.0 % 12/02/20 02:14 Lymphocytes % (Manual) 3.0 % (13.4-35.0) L 12/08/20 06:10 Monocytes % (Manual) 2.0 % (0.0-7.3) 12/08/20 06:10 Nucleated RBC % Not Reportable 12/08/20 06:10 Seg Neutrophils # 12.7 K/mm3 (1.8-7.7) H 11/27/20 06:25 Seg Neutrophils # Man 11.4 K/mm3 (1.8-7.7) H 12/08/20 06:10 Band Neutrophils # 0.0 K/mm3 12/08/20 06:10 Lymphocytes # (Manual) 0.4 K/mm3 (1.2-5.4) L 12/08/20 06:10 Abs React Lymphs (Man) 0.0 K/mm3 12/08/20 06:10 Monocytes # (Manual) 0.2 K/mm3 (0.0-0.8) 12/08/20 06:10 Eosinophils # (Manual) 0.0 K/mm3 (0.0-0.4) 12/08/20 06:10 Basophils # (Manual) 0.0 K/mm3 (0.0-0.1) 12/08/20 06:10 Metamyelocytes # 0.0 K/mm3 12/08/20 06:10 Myelocytes # 0.0 K/mm3 12/08/20 06:10 Promyelocytes # 0.0 K/mm3 12/08/20 06:10 Blast Cells # 0.0 K/mm3 12/08/20 06:10 WBC Morphology Not Reportable 12/08/20 06:10 Hypersegmented Neuts Not Reportable 12/08/20 06:10 Hyposegmented Neuts Not Reportable 12/08/20 06:10 Hypogranular Neuts Not Reportable 12/08/20 06:10 Smudge Cells Not Reportable 12/08/20 06:10 Toxic Granulation Not Reportable 12/08/20 06:10 Toxic Vacuolation Not Reportable 12/08/20 06:10 Dohle Bodies Not Reportable 12/08/20 06:10 Pelger-Huet Anomaly Not Reportable 12/08/20 06:10 Tony Rods Not Reportable 12/08/20 06:10 Platelet Estimate Consistent w auto 12/08/20 06:10 Clumped Platelets Not Reportable 12/08/20 06:10 Plt Clumps, EDTA Not Reportable 12/08/20 06:10 Large Platelets Not Reportable 12/08/20 06:10 Giant Platelets Not Reportable 12/08/20 06:10 Platelet Satelliting Not Reportable 12/08/20 06:10 Plt Morphology Comment Not Reportable 12/08/20 06:10 RBC Morphology Not Reportable 12/08/20 06:10 Dimorphic RBCs Not Reportable 12/08/20 06:10 Polychromasia Not Reportable 12/08/20 06:10 Hypochromasia 1+ 12/08/20 06:10 Poikilocytosis Not Reportable 12/08/20 06:10 Anisocytosis Not Reportable 12/08/20 06:10 Microcytosis Not Reportable 12/08/20 06:10 Macrocytosis Not Reportable 12/08/20 06:10 Spherocytes Not Reportable 12/08/20 06:10 Pappenheimer Bodies Not Reportable 12/08/20 06:10 Sickle Cells Not Reportable 12/08/20 06:10 Target Cells Not Reportable 12/08/20 06:10 Tear Drop Cells Not Reportable 12/08/20 06:10 Ovalocytes Not Reportable 12/08/20 06:10 Stomatocytes 1+ 12/03/20 04:35 Helmet Cells Not Reportable 12/08/20 06:10 [place] Bodies Not Reportable 12/08/20 06:10 [place] Rings Not Reportable 12/08/20 06:10 [place] Cells Not Reportable 12/08/20 06:10 Bite Cells Not Reportable 12/08/20 06:10 Crenated Cell Not Reportable 12/08/20 06:10 Elliptocytes Not Reportable 12/08/20 06:10 Acanthocytes (Spur) Not Reportable 12/08/20 06:10 Rouleaux Not Reportable 12/08/20 06:10 Hemoglobin C Crystals Not Reportable 12/08/20 06:10 Schistocytes Not Reportable 12/08/20 06:10 Malaria parasites Not Reportable 12/08/20 06:10 Yovani Bodies Not Reportable 12/08/20 06:10 Hem Pathologist Commnt No 12/08/20 06:10 D-Dimer 926.11 ng/mlDDU (0-234) H 11/26/20 06:04 ABG pH 7.408 pH Units (7.350-7.450) 12/08/20 04:12 POC ABG pCO2 74.1 mmHg (32.0-48.0) H 12/07/20 14:28 ABG pCO2 81.3 mm Hg 12/08/20 04:12 POC ABG pO2 68.5 mmHg (83-108) L 12/07/20 14:28 ABG pO2 69.7 mm Hg (80.0-90.0) L 12/08/20 04:12 POC ABG HCO3 46.4 12/07/20 14:28 ABG HCO3 50.1 mmol/L (20.0-26.0) H 12/08/20 04:12 ABG O2 Saturation 95.4 % (95.0-99.0) 12/08/20 04:12 ABG O2 Content 13.0 (0.0-44) 12/07/20 05:20 POC ABG Base Excess 18.7 12/07/20 14:28 ABG Base Excess 21.6 mmol/L (-2.0-3.0) H 12/08/20 04:12 ABG Hemoglobin 10.9 gm/dl (14.0-18.0) L 12/08/20 04:12 ABG Oxyhemoglobin 91.9 (94-98) L 12/07/20 14:28 ABG Carboxyhemoglobin 2.0 % (0.0-5.0) 12/08/20 04:12 ABG Methemoglobin 0.4 % (0.0-1.5) 12/08/20 04:12 ABG Sodium 132.2 mmol/L (136.0-145.0) L 12/07/20 14:28 ABG Potassium 4.7 mmol/L (3.40-4.50) H 12/07/20 14:28 ABG Chloride 88.0 mmol/L (98-107) L 12/07/20 14:28 ABG Glucose 138 mg/dL (65-95) H 12/07/20 14:28 Oxyhemoglobin 93.2 % (95.0-99.0) L 12/08/20 04:12 Carboxyhemoglobin 1.4 (0.5-1.5) 12/07/20 14:28 FiO2 70 % 12/08/20 04:12 Sodium 133 mmol/L (137-145) L 12/08/20 06:10 Potassium 4.5 mmol/L (3.6-5.0) 12/08/20 06:10 Chloride 86.3 mmol/L (98-107) L 12/08/20 06:10 Carbon Dioxide 53 mmol/L (22-30) H* 12/08/20 06:10 Anion Gap -2 mmol/L 12/08/20 06:10 BUN 17 mg/dL (9-20) 12/08/20 06:10 Creatinine 0.2 mg/dL (0.8-1.3) L 12/08/20 06:10 Estimated GFR > 60 ml/min 12/08/20 06:10 BUN/Creatinine Ratio 85 % 12/08/20 06:10 Glucose 156 mg/dL (75-100) H 12/08/20 06:10 POC Glucose 143 mg/dL (70-105) H 12/08/20 05:29 Hemoglobin A1c 11.7 % (4-6) H 11/16/20 05:29 Lactic Acid 2.60 mmol/L (0.7-2.0) H* 11/16/20 05:29 Calcium 7.6 mg/dL (8.4-10.2) L 12/08/20 06:10 Phosphorus 2.90 mg/dL (2.5-4.5) 12/04/20 Unknown Magnesium 1.90 mg/dL (1.7-2.3) 12/04/20 Unknown Ferritin 778.8 ng/mL (30.0-300.0) H 11/26/20 04:00 Total Bilirubin 0.30 mg/dL (0.1-1.2) 12/06/20 04:31 AST 48 units/L (5-40) H 12/06/20 04:31 ALT 91 units/L (7-56) H 12/06/20 04:31 Alkaline Phosphatase 140 units/L (35-129) H 12/06/20 04:31 Lactate Dehydrogenase 288 units/L (91-180) H 11/26/20 04:00 Troponin T < 0.010 ng/mL (0.00-0.029) 11/22/20 Unknown C-Reactive Protein 1.40 mg/dL (0.00-1.30) H 11/26/20 04:00 NT-Pro-B Natriuret Pep 107.2 pg/mL (0-900) 11/17/20 10:21 Total Protein 5.7 g/dL (6.3-8.2) L 12/06/20 04:31 Albumin 2.6 g/dL (3.9-5) L 12/06/20 04:31 Albumin/Globulin Ratio 0.8 % 12/06/20 04:31 Triglycerides 109 mg/dL (2-149) 12/08/20 06:10 Procalcitonin 0.51 ng/mL (<0.15) 11/15/20 10:39 Arterial Blood Glucose 138 mg/dL (65-95) H 12/07/20 14:28 Arterial Blood Ionized Calcium 4.0 mg/dL (4.6-5.3) L 12/07/20 14:28 Urine Color [place] (Yellow) 11/16/20 01:45 Urine Turbidity Slightly-cloudy (Clear) 11/16/20 01:45 Urine pH 6.0 (5.0-7.0) 11/16/20 01:45 Ur Specific [place] 1.037 (1.003-1.030) H 11/16/20 01:45 Urine Protein 30 mg/dl mg/dL (Negative) 11/16/20 01:45 Urine Glucose (UA) >=500 mg/dL (Negative) 11/16/20 01:45 Urine Ketones 20 mg/dL (Negative) 11/16/20 01:45 Urine Blood Neg (Negative) 11/16/20 01:45 Urine Nitrite Neg (Negative) 11/16/20 01:45 Urine Bilirubin Neg (Negative) 11/16/20 01:45 Urine Urobilinogen 2.0 mg/dL (<2.0) 11/16/20 01:45 Ur Leukocyte Esterase Neg (Negative) 11/16/20 01:45 Urine WBC (Auto) 2.0 /HPF (0.0-6.0) 11/16/20 01:45 Urine RBC (Auto) 1.0 /HPF (0.0-6.0) 11/16/20 01:45 Urine Bacteria (Auto) 1+ /HPF (Negative) 11/16/20 01:45 Urine Mucus 3+ /HPF 11/16/20 01:45 Vancomycin Trough 4.0 ug/mL (5.0-20.0) L 11/29/20 15:40 Coronavirus (PCR) Positive (Negative) A 11/16/20 Unknown - Diagnostic Impressions Diagnostic Impressions: Echocardiogram 11/16/20 10:34 Transthoracic Echocardiogram Indication: Shortness of breath-COVID BP: 108/77 HR: 92 Conclusions *Global left ventricular systolic function is normal. *The estimated ejection fraction is 60-65%. *Mild to moderate concentric left ventricular hypertrophy is observed. *There is trace of mitral regurgitation. *There is mild to moderate tricuspid regurgitation. *There is evidence of mild pulmonary hypertension. *The right ventricular systolic pressure is calculated at 31 mmHg. Findings Left Ventricle: The left ventricular chamber size is normal. Mild to moderate concentric left ventricular hypertrophy is observed. Global left ventricular systolic function is normal. The estimated ejection fraction is 60-65%. Left Atrium: The left atrial chamber size is normal. Right Ventricle: The right ventricular cavity size is normal. The right ventricular global systolic function is normal. Right Atrium: The right atrial cavity size is normal. Aortic Valve: The aortic valve is trileaflet. There is no evidence of aortic regurgitation. There is no evidence of aortic stenosis. Mitral Valve: The mitral valve leaflets appear normal. There is trace of mitral regurgitation. There is no evidence of mitral stenosis. Tricuspid Valve: The tricuspid valve leaflets are normal. There is mild to moderate tricuspid regurgitation. The right ventricular systolic pressure is calculated at 31 mmHg. There is evidence of mild pulmonary hypertension. Pulmonic Valve: There is trace pulmonic regurgitation. Pericardium: There is no pericardial effusion. Aorta: There is no dilatation of the ascending aorta. There is no dilatation of the aortic root. Venous: The inferior vena cava appears normal in size. Measurements Chambers 2D Name Value Normal Range IVSd (2D) 0.81 cm (0.6 - 1.1) LVPWd (2D) 0.79 cm (0.6 - 1.1) LVIDd (2D) 4.22 cm (3.7 - 5.6) LVIDs (2D) 3.1 cm (2 - 3.8) LV FS (2D) 26.71 % - EF Teichholz (2D) 52.55 % - Ao root diameter (2D) 3.34 cm (2 - 3.7) Volumes/Mass Name Value Normal Range LA ESV SP 4CH (A/L) 10.87 ml - LA ESV SP 2CH (A/L) 18.74 ml - LA ESV BP (A/L) 16.38 ml - LA ESV BP (A/L) index 8.62 ml/m2 - LA ESV SP 4CH (MOD) 10.32 ml - LA ESV SP 2CH (MOD) 17.66 ml - LA ESV BP (MOD) 15.12 ml - LA ESV BP (MOD) index 7.96 ml/m2 - Diastolic/Systolic Function Name Value Normal Range MV E-wave Vmax 0.76 m/sec - MV deceleration time 133.63 msec - MV A-wave Vmax 1.1 m/sec - MV E:A ratio 0.69 ratio - Aortic Valve Name Value Normal Range AV Vmax 1.44 m/sec - AV VTI 22.94 cm - AV peak gradient 8.33 mmHg - AV mean gradient 4.73 mmHg - LVOT diameter 2.2 cm - LVOT Vmax 1.04 m/sec - LVOT VTI 18.88 cm - LVOT peak gradient 4.34 mmHg - LVOT mean gradient 2.31 mmHg - SV LVOT 72.05 ml - EVANGELISTA (continuity Vmax) 2.75 cm2 - EVANGELISTA (continuity VTI) 3.14 cm2 - Tricuspid Valve Name Value Normal Range TR Vmax 2.64 m/sec - TR peak gradient 28 mmHg - RAP 3 mmHg - RVSP 31 mmHg - Gupta/IV: Voiding Method Indwelling Catheter IV Catheter Type [Left Peripheral IV Antecubital] Active Medications - Current Medications Current Medications: Generic Name Dose Route Start Last Admin Trade Name Freq PRN Reason Stop Dose Admin Acetaminophen 650 mg 11/15/20 23:55 11/18/20 22:19 Acetaminophen 325 Mg Tab PO 650 mg Q4H PRN Administration Pain MILD(1-3)/Fever >100.5/BUTTS Lipase/Protease/Amylase 1 each 11/23/20 11:53 12/05/20 23:45 Lipase 10,500/Protease 25,000/Amylase 43,750 (Units) Dr Cap FEEDTUBE 1 each PRN PRN Administration For Clogged Feeding Tube Enoxaparin Sodium 40 mg 12/03/20 22:00 12/07/20 21:02 Enoxaparin 40 Mg/0.4 Ml Inj SUB-Q 40 mg QDAY@2200 RAEANN Administration Famotidine 20 mg 11/22/20 22:00 12/07/20 21:03 Famotidine 20 Mg/2 Ml Inj IV 20 mg BID RAEANN Administration Fentanyl 50 mcg 11/21/20 21:53 Fentanyl 100 Mcg/2 Ml Inj IV Q10MIN PRN ANALGESIA Hydrophilic Ointment 1 applic 11/21/20 21:53 11/30/20 21:33 Lip Therapy Vaseline TP 1 applic Q2HR PRN Administration Dry Lips Fentanyl Citrate 2,000 mcg in 100 mls @ 3.625 mls/hr 11/21/20 22:00 12/08/20 07:40 Fentanyl Drip Premix IV 4 mcg/kg/hr TITR RAEANN 14.5 mls/hr Administration Protocol 1 MCG/KG/HR Midazolam HCl 100 mg/ Sodium 100 mls @ 2 mls/hr 11/21/20 22:00 12/07/20 17:31 Chloride IV 5 mg/hr TITR RAEANN 5 mls/hr Administration Protocol 2 MG/HR Norepinephrine 4 mg in 250 mls @ 7.5 mls/hr 11/22/20 17:00 12/07/20 18:53 Levophed Drip 4 Mg/Ns 250 Ml IV 0 mcg/min TITR RAEANN 0 mls/hr Titration Protocol 2 MCG/MIN Propofol 1,000 mg in 100 mls @ 2.175 mls/hr 11/27/20 12:00 12/08/20 00:54 Diprivan 10 Mg/Ml IV 30 mcg/kg/min TITR RAEANN 13.05 mls/hr Administration Protocol 5 MCG/KG/MIN Insulin Glargine 30 units 12/02/20 09:00 12/07/20 21:04 Insulin Glargine 100 Units/Ml SUB-Q 30 units 0800,2200 RAEANN Administration Insulin Human Lispro 0 unit 11/22/20 06:00 12/08/20 00:23 Insulin Lispro 100 Unit/Ml SUB-Q Not Given Q6HR [facility] Protocol Methylprednisolone Sodium Succinate 20 mg 12/07/20 14:00 12/07/20 21:02 Methylprednisolone Sod Succinate 40 Mg/1 Ml Inj IV 20 mg Q8HR RAEANN Administration Metoclopramide HCl 10 mg 11/15/20 23:55 Metoclopramide 10 Mg/2 Ml Inj IV Q6H PRN Nausea And Vomiting Midazolam HCl 2 mg 11/21/20 21:53 12/03/20 20:13 Midazolam 2 Mg/2 Ml Inj IV 2 mg Q10MIN PRN Administration Sedation Multi-Ingred Cream/Lotion/Oil/Oint 1 applic 11/21/20 21:53 Mineral Oil/Petrolatum, White Ophth Oint 3.5 Gm OU Q4HR PRN Dry Eye(s) Ondansetron HCl 4 mg 11/15/20 23:55 Ondansetron 4 Mg/2 Ml Inj IV Q8H PRN Nausea And Vomiting Senna/Docusate Sodium 2 tab 12/03/20 13:00 12/07/20 21:03 Sennosides/Docusate Sodium 8.6/50 Mg Tab PO 2 tab BID RAEANN Administration Simple Syrup 15 ml 11/23/20 11:53 Simple Syrup 15 Ml FEEDTUBE PRN PRN Hypoglycemia Simple Syrup 30 ml 11/23/20 11:53 Simple Syrup 15 Ml FEEDTUBE PRN PRN Hypoglycemia Sodium Bicarbonate 325 mg 11/23/20 11:53 12/05/20 23:46 Sodium Bicarbonate 325 Mg Tab FEEDTUBE 325 mg PRN PRN Administration For Clogged Feeding Tube Sodium Chloride 10 ml 11/16/20 10:00 12/07/20 21:05 Sodium Chloride 0.9% 10 Ml Flush Syringe IV 10 ml BID RAEANN Administration Sodium Chloride 10 ml 11/15/20 23:55 12/03/20 00:21 Sodium Chloride 0.9% 10 Ml Flush Syringe IV 10 ml PRN PRN Administration LINE FLUSH Nutrition/Malnutrition Assess - Dietary Evaluation Nutrition/Malnutrition Findings: Nutrition Notes Start: 11/20/20 12:03 Freq: Status: Active Protocol: Document 12/03/20 12:41 AL (Rec: 12/03/20 13:01 AL [id number]) Co-Sign 12/03/20 12:41 MK Nutrition Notes Initial or Follow up Reassessment Current Diagnosis Diabetes,Sepsis,Respiratory Failure Other Pertinent Diagnosis Bilat pneu, COVID-19 (+) Current Diet Glucerna at 60 ml/hr Labs/Tests POC BG 211 BUN 25 Cr .3 Pertinent Medications Solumedrol Propofol 8.7 ml/hr Humalog Lantus Height 5 ft 6 in Weight 83.5 kg Usual Body Weight 80.5 kg [place] Body Weight (kg) 64.54 BMI 29.7 Weight Status Overweight Subjective/Other Information F/U for TF tolerance. Pt tolerating Glucerna at 60 ml/ hr. Pt w/o BM since 11/21. MD to start bowel regimen Percent of energy/protein needs met: 100%/100% Burn Absent Trauma Absent GI Symptoms Last BM Difficulty In Swallowing,Chewing Food Allergy No Current % PO Negligible Minimum of two criteria Yes Energy Intake (severe) < or equal to 50% Estimated Energy Requirement > or equal to 5 days Interpretation of Weight Loss (severe) >2% in 1 week Fluid Accumulation Moderate to Severe (severe) #3 Nutrition Diagnosis Inadequate oral intake Diagnosis Progress(for reassessment Continues documentation) #2 Nutrition Diagnosis Malnutrition Diagnosis Progress(for reassessment Continues documentation) #1 Nutrition Diagnosis Unintended weight loss Diagnosis Progress(for reassessment Continues documentation) Is patient on ventilator? Yes Is Patient Ambulatory and/or Out of Bed No REE-([place]-confined to bed) 1921.872 Kcal/Kg value to use for calculation 21 Approximate Energy Requirements Using 1754 kcal/Kg Calculation Used for Recommendations Kcal/kg Additional Notes Protein: 87-145 g/day (1.2-2g/ kg) Fluid: 1ml/kcal or per MD Nutrition Intervention Change Diet Order: Continue TF Nutrition Support: Glucerna 1.2 at 60 ml/hr. Flush 100 ml q4h Kcal 1,728 Protein (gm) 86 Fluid (mL) 1,159 Goal #1 TF tolerance Goal #2 Meet at least 75% of energy and protein needs via TF Anticipated Discharge Needs: Unknown at this time Follow-Up By: 12/09/20 Additional Comments F/U for TF tolerance
[2020-12-08] MEDS: INSULIN GLARGINE 100 UNITS/ML SUB-Q SCH ×2 (08:15→21:18)
[2020-12-08] MEDS: SENNOSIDES/DOCUSATE SODIUM 8.6/50 MG TAB PO SCH ×2 (10:23→21:18)
[2020-12-08] MEDS: FAMOTIDINE 20 MG/2 ML INJ IV SCH ×2 (10:23→21:18)
[2020-12-08] MEDS ORDERED: MAGNESIUM CITRATE 300 ML ORAL LIQD PO ONE (11:00)
--- NOTE | 2020-12-08 11:07 | Progress Note ---
Assessment and Plan 59 y/o male with acute respiratory failure, abnormal CXR and abnormal lab studies. 12/08/20: Increase TV to 425. Drop FiO2 to 65% and wean for sats >88%. COntinue chest tubes. Change steroids to 20q12. 12/07/20: CXR is stable, no indication for another chest tube at this time. Will repeat ABG in 1 hour post change to 70% and wean accordingly. Dropping steroids to 20q8. Guarded prognosis. Same weaning parameters apply today as of 12/04/20 12/04/20: Continue to wean steroids to off. Continue to wean FiO2 for sats >88%. Keep PEEP at current level, would not feel comfortable weaning PEEP until FiO2 at 35-40%. Continue chest tubes to suction. PaO2 of >55, pH of >7.2 and sats >88% are acceptable. : Dropped steroids down to 40q8 and will start to wean from there. Continue to slowly wean FiO2 first, keep PEEP at current level. Spoke with Kehinde, please see my event note, who is the biological brother. He had no questions but thanked us for our care. Prognosis remains very very guarded. PaO2 of 55 and pH of >7.2 and sats of >88% are all acceptable. 12/02/20: Wean FiO2 for sats >88% and PaO2 >55. Unable to prone currently secondary to bilateral chest tubes. COntinue high dose steroids. CM To figure out who is the immediate next of kin that can make decisions and then we will discuss the current clinical situation with them. 12/01/20: Continue PEEP and FiO2 elevated to keep sats >88% and PaO2 >55. Small lung volumes and high PEEP. very very guarded prognosis. 11/30/20: Worsening hypoxemia. Chest tubes stable. Likely just worsening disease. Unable to prone now. Increase PEEP to 18 and FiO2 back up to 100. Continue 3 sedatives for RASS of -2. Obtain 12 lead to look at T waves as K was only 4.6 on yesterday. Guarded, guarded prognosis 11/29/20: Second chest tube in on yesterday. CXR is stable. ABG unchanged. Will likely increase PEEP now that chest tubes are in. No further paralytics. Still making good urine. Prognosis remains guarded. Will check chemistry to assess Potassium levels given peaked t's seen on monitor. 11/28/20: Second chest tube today. Once chest tube in, will likely increase PEEP to 18 and repeat gas about 2 hours after this. Continue paralytic today. No proning now that patient will have bilateral chest tubes. VEry guarded prognosis. 11/27/20: Spoke with surgery who have agreed to evaluate and placed chest tube on either right or left side pending CXR reading. Will monitor for 36-48 hours and if no resolution, will need chest tube placed on opposite side as well. Once placed, will likely paralyze again but hold on proning for now. Guarded prognosis. 11/26/20: Paralytics are off. Continue current level of sedation. Will prone for 12 hours today and repeat ABG in the am. Continue lung protective strategy. Guarded prognosis. 11/25/20: Prone again to 16 hours, will prone at 12-12:30. Continue paralytics for 24 more hours. Discussed the idea of permissive hypercapnea again today and as long as pH is above 7.2 no changes should be made to TV and or RR without discussing with physician. Continue to monitor urine output, guarded prognosis. Hold on lasix therapy today. 11/24/20: Prone again today. Will try 48 hours of paralyzing the patient to see if this will help with oxygenation. Will speak with RT's about permissive hypercapnea and that pH's of 7.2 and greater are ok. Continue high doses steroids. Prognosis is still very very guarded. If not improvement with paralytics, will attempt transfer. 11/23/20: Prone again today for 12 hours. Continue High Dose steroids. Hold on lasix given marginal BP's. Prognosis is very very guarded to poor. Will continue all supportive measures. If not able to wean from 100%, will attempt transfer for ECMO. 11/20/20: WIll change to solumedrol 60q6 today. Hold on lasix today. Given his increasing oxygen requirement, will likely end up intubated. OVerall prognosis is very poor. 11/19/20: lasix 40mg IV x1 today. Will speak with ID but may consider increasing steroids to see if this will help with oxygenation. Continue Remdesivir. Pr ognosis remains guarded. 11/18/20: Continue bipap, goal is to attempt to prevent prolong intubation for as long as possible. Lasix again today. Steroids and Remdesivir. Guarded Prognosis. 11/17/20: Continue bipap therapy. Monitor mental state. High risk for Intubation. Continue BID anticoagulation. Prone if able. BNP was elevated but not grossly elevated. Will still give lasix with hopes of achieving net negative state. STeroids and remdesivir. Overall prognosis is guarded, extremely guarded. 1. Pulm- Agree with concern for covid. Agree with empiric abx but procal is only mildly elevated. Await cultures. Continue bipap therapy for now but will need to monitor closely. [facility] has ordered CTA, but I spoke with pharmacy and we will empirically treat with BID lovenox therapy. COntinue empiric steroid therapy for COVID until studies back. Not sure that he will be able to prone on bipap therapy. Monitor volume status and run as dry as possible. 2. Renal-normal function but all electrolytes abnormal. HYponatremia and Hypochloremia volume up vs volume down. Sent BNP. Would suggest obtaning echo as well. Not sure what to make of elevated lactate unless that is from increased work of breathing or damage to other tissue unknown. May need to check LFT's and Coags as well. 3. Guarded Prognosis. CCT 31 minutes. Subjective Date of service: 12/08/20 Principal diagnosis: COVID-19 Interval history: No acute events. CO2 elevated but very well compensated. PaO2 better on 70%. Still sedated. Urine output is ok. Objective Vital Signs - 12hr 12/07/20 12/08/20 12/08/20 23:54 00:00 00:28 Temperature 98.8 F Pulse Rate 81 77 Pulse Rate [ 81 From Monitor] Respiratory 30 H Rate Blood Pressure 96/50 96/50 O2 Sat by Pulse 94 94 Oximetry 12/08/20 12/08/20 12/08/20 01:00 02:00 03:00 Temperature Pulse Rate 82 89 96 H Pulse Rate [ From Monitor] Respiratory 31 H 30 H 30 H Rate Blood Pressure 171/81 162/77 167/80 O2 Sat by Pulse 81 L 94 93 Oximetry 12/08/20 12/08/20 12/08/20 03:21 04:00 05:00 Temperature 98.2 F Pulse Rate 97 H 96 H Pulse Rate [ 97 H From Monitor] Respiratory 30 H 30 H Rate Blood Pressure 137/72 166/92 O2 Sat by Pulse 94 93 Oximetry 12/08/20 12/08/20 12/08/20 06:00 07:00 08:00 Temperature 98.3 F Pulse Rate 83 83 78 Pulse Rate [ 79 From Monitor] Respiratory 30 H 30 H 30 H Rate Blood Pressure 84/45 94/49 98/50 O2 Sat by Pulse 97 98 99 Oximetry 12/08/20 12/08/20 08:57 10:44 Temperature Pulse Rate 73 87 Pulse Rate [ From Monitor] Respiratory Rate Blood Pressure 96/49 140/70 O2 Sat by Pulse 96 99 Oximetry Constitutional: other (on vent orally intubated) ENT: other (Now intubated) Ascultation: Bilateral: rales, rhonchi Percussion: Bilateral: not dull Cardiovascular: regular rate and rhythm Gastrointestinal: soft, non-tender Neurologic: other (on vent) CBC and BMP: 12/08/20 06:10 12/08/20 06:10 ABG, PT/INR, D-dimer: ABG ABG pH 7.408 pH Units (7.350-7.450) 12/08/20 04:12 POC ABG pCO2 74.1 mmHg (32.0-48.0) H 12/07/20 14:28 ABG pCO2 81.3 mm Hg 12/08/20 04:12 POC ABG pO2 68.5 mmHg (83-108) L 12/07/20 14:28 ABG pO2 69.7 mm Hg (80.0-90.0) L 12/08/20 04:12 POC ABG HCO3 46.4 12/07/20 14:28 ABG O2 Saturation 95.4 % (95.0-99.0) 12/08/20 04:12 PT/INR, D-dimer D-Dimer 926.11 ng/mlDDU (0-234) H 11/26/20 06:04 Abnormal lab findings: Abnormal Labs 11/15/20 11/15/20 11/15/20 10:39 10:39 10:39 WBC 14.3 H RBC 5.17 H Hgb Hct Plt Count Lymph % (Auto) 7.8 L [place] % (Auto) 7.6 H Lymph # (Auto) 1.1 L [place] # (Auto) 1.1 H Baso # (Auto) Seg Neutrophils % 83.3 H Seg Neuts % (Manual) Lymphocytes % (Manual) Seg Neutrophils # 11.9 H Seg Neutrophils # Man Lymphocytes # (Manual) D-Dimer ABG pH POC ABG pCO2 POC ABG pO2 ABG pO2 ABG HCO3 ABG O2 Saturation ABG Base Excess ABG Hemoglobin ABG Oxyhemoglobin ABG Sodium ABG Potassium ABG Chloride ABG Glucose Oxyhemoglobin Sodium 128 L Potassium Chloride 96.0 L Carbon Dioxide BUN Creatinine 0.7 L Glucose 238 H POC Glucose Hemoglobin A1c Lactic Acid 4.10 H* Calcium 7.0 L Ferritin Total Bilirubin 1.40 H AST 49 H ALT 70 H Alkaline Phosphatase Lactate Dehydrogenase 663 H C-Reactive Protein 19.80 H Total Protein Albumin 2.9 L Triglycerides Arterial Blood Glucose Arterial Blood Ionized Calcium Ur Specific [place] Vancomycin Trough Coronavirus (PCR) 11/15/20 11/15/20 11/15/20 10:39 10:39 11:20 WBC RBC Hgb Hct Plt Count Lymph % (Auto) [place] % (Auto) Lymph # (Auto) [place] # (Auto) Baso # (Auto) Seg Neutrophils % Seg Neuts % (Manual) Lymphocytes % (Manual) Seg Neutrophils # Seg Neutrophils # Man Lymphocytes # (Manual) D-Dimer > 30256 H ABG pH POC ABG pCO2 29.9 L POC ABG pO2 137.3 H ABG pO2 ABG HCO3 ABG O2 Saturation ABG Base Excess ABG Hemoglobin ABG Oxyhemoglobin ABG Sodium 126.5 L ABG Potassium ABG Chloride ABG Glucose 248 H Oxyhemoglobin Sodium Potassium Chloride Carbon Dioxide BUN Creatinine Glucose POC Glucose Hemoglobin A1c Lactic Acid Calcium Ferritin 672.8 H Total Bilirubin AST ALT Alkaline Phosphatase Lactate Dehydrogenase C-Reactive Protein Total Protein Albumin Triglycerides Arterial Blood Glucose 248 H Arterial Blood Ionized Calcium 4.1 L Ur Specific [place] Vancomycin Trough Coronavirus (PCR) 11/15/20 11/15/20 11/16/20 13:41 23:41 01:45 WBC RBC Hgb Hct Plt Count Lymph % (Auto) [place] % (Auto) Lymph # (Auto) [place] # (Auto) Baso # (Auto) Seg Neutrophils % Seg Neuts % (Manual) Lymphocytes % (Manual) Seg Neutrophils # Seg Neutrophils # Man Lymphocytes # (Manual) D-Dimer ABG pH POC ABG pCO2 POC ABG pO2 ABG pO2 ABG HCO3 ABG O2 Saturation ABG Base Excess ABG Hemoglobin ABG Oxyhemoglobin ABG Sodium ABG Potassium ABG Chloride ABG Glucose Oxyhemoglobin Sodium Potassium Chloride Carbon Dioxide BUN Creatinine Glucose POC Glucose 284 H Hemoglobin A1c Lactic Acid 2.30 H* Calcium Ferritin Total Bilirubin AST ALT Alkaline Phosphatase Lactate Dehydrogenase C-Reactive Protein Total Protein Albumin Triglycerides Arterial Blood Glucose Arterial Blood Ionized Calcium Ur Specific [place] 1.037 H Vancomycin Trough Coronavirus (PCR) 11/16/20 11/16/20 11/16/20 05:29 05:29 05:29 WBC 12.9 H RBC Hgb Hct Plt Count Lymph % (Auto) 4.5 L [place] % (Auto) Lymph # (Auto) 0.6 L [place] # (Auto) Baso # (Auto) 0.2 H Seg Neutrophils % 89.8 H Seg Neuts % (Manual) Lymphocytes % (Manual) Seg Neutrophils # 11.5 H Seg Neutrophils # Man Lymphocytes # (Manual) D-Dimer ABG pH POC ABG pCO2 POC ABG pO2 ABG pO2 ABG HCO3 ABG O2 Saturation ABG Base Excess ABG Hemoglobin ABG Oxyhemoglobin ABG Sodium ABG Potassium ABG Chloride ABG Glucose Oxyhemoglobin Sodium 131 L Potassium Chloride Carbon Dioxide 21 L BUN 23 H Creatinine 0.6 L Glucose 342 H POC Glucose Hemoglobin A1c Lactic Acid 2.60 H* Calcium 7.0 L Ferritin Total Bilirubin AST ALT Alkaline Phosphatase Lactate Dehydrogenase C-Reactive Protein Total Protein Albumin 2.4 L Triglycerides Arterial Blood Glucose Arterial Blood Ionized Calcium Ur Specific [place] Vancomycin Trough Coronavirus (PCR) 11/16/20 11/16/20 11/16/20 05:29 08:11 12:11 WBC RBC Hgb Hct Plt Count Lymph % (Auto) [place] % (Auto) Lymph # (Auto) [place] # (Auto) Baso # (Auto) Seg Neutrophils % Seg Neuts % (Manual) Lymphocytes % (Manual) Seg Neutrophils # Seg Neutrophils # Man Lymphocytes # (Manual) D-Dimer ABG pH POC ABG pCO2 POC ABG pO2 ABG pO2 ABG HCO3 ABG O2 Saturation ABG Base Excess ABG Hemoglobin ABG Oxyhemoglobin ABG Sodium ABG Potassium ABG Chloride ABG Glucose Oxyhemoglobin Sodium Potassium Chloride Carbon Dioxide BUN Creatinine Glucose POC Glucose 329 H 320 H Hemoglobin A1c 11.7 H Lactic Acid Calcium Ferritin Total Bilirubin AST ALT Alkaline Phosphatase Lactate Dehydrogenase C-Reactive Protein Total Protein Albumin Triglycerides Arterial Blood Glucose Arterial Blood Ionized Calcium Ur Specific [place] Vancomycin Trough Coronavirus (PCR) 11/16/20 11/16/20 11/16/20 16:13 21:29 Unknown WBC RBC Hgb Hct Plt Count Lymph % (Auto) [place] % (Auto) Lymph # (Auto) [place] # (Auto) Baso # (Auto) Seg Neutrophils % Seg Neuts % (Manual) Lymphocytes % (Manual) Seg Neutrophils # Seg Neutrophils # Man Lymphocytes # (Manual) D-Dimer ABG pH POC ABG pCO2 POC ABG pO2 ABG pO2 ABG HCO3 ABG O2 Saturation ABG Base Excess ABG Hemoglobin ABG Oxyhemoglobin ABG Sodium ABG Potassium ABG Chloride ABG Glucose Oxyhemoglobin Sodium Potassium Chloride Carbon Dioxide BUN Creatinine Glucose POC Glucose 257 H 376 H Hemoglobin A1c Lactic Acid Calcium Ferritin Total Bilirubin AST ALT Alkaline Phosphatase Lactate Dehydrogenase C-Reactive Protein Total Protein Albumin Triglycerides Arterial Blood Glucose Arterial Blood Ionized Calcium Ur Specific [place] Vancomycin Trough Coronavirus (PCR) Positive A 11/17/20 11/17/20 11/17/20 07:42 12:07 17:25 WBC RBC Hgb Hct Plt Count Lymph % (Auto) [place] % (Auto) Lymph # (Auto) [place] # (Auto) Baso # (Auto) Seg Neutrophils % Seg Neuts % (Manual) Lymphocytes % (Manual) Seg Neutrophils # Seg Neutrophils # Man Lymphocytes # (Manual) D-Dimer ABG pH POC ABG pCO2 POC ABG pO2 ABG pO2 ABG HCO3 ABG O2 Saturation ABG Base Excess ABG Hemoglobin ABG Oxyhemoglobin ABG Sodium ABG Potassium ABG Chloride ABG Glucose Oxyhemoglobin Sodium Potassium Chloride Carbon Dioxide BUN Creatinine Glucose POC Glucose 231 H 380 H 302 H Hemoglobin A1c Lactic Acid Calcium Ferritin Total Bilirubin AST ALT Alkaline Phosphatase Lactate Dehydrogenase C-Reactive Protein Total Protein Albumin Triglycerides Arterial Blood Glucose Arterial Blood Ionized Calcium Ur Specific [place] Vancomycin Trough Coronavirus (PCR) 11/17/20 11/18/20 11/18/20 21:53 04:25 07:45 WBC RBC Hgb Hct Plt Count Lymph % (Auto) [place] % (Auto) Lymph # (Auto) [place] # (Auto) Baso # (Auto) Seg Neutrophils % Seg Neuts % (Manual) Lymphocytes % (Manual) Seg Neutrophils # Seg Neutrophils # Man Lymphocytes # (Manual) D-Dimer ABG pH POC ABG pCO2 POC ABG pO2 ABG pO2 ABG HCO3 ABG O2 Saturation ABG Base Excess ABG Hemoglobin ABG Oxyhemoglobin ABG Sodium ABG Potassium ABG Chloride ABG Glucose Oxyhemoglobin Sodium 136 L Potassium Chloride Carbon Dioxide BUN 24 H Creatinine 0.6 L Glucose 212 H POC Glucose 293 H 216 H Hemoglobin A1c Lactic Acid Calcium 7.4 L Ferritin Total Bilirubin AST 41 H ALT Alkaline Phosphatase 142 H Lactate Dehydrogenase C-Reactive Protein Total Protein Albumin 2.3 L Triglycerides Arterial Blood Glucose Arterial Blood Ionized Calcium Ur Specific [place] Vancomycin Trough Coronavirus (PCR) 11/18/20 11/18/20 11/18/20 12:28 15:58 21:37 WBC RBC Hgb Hct Plt Count Lymph % (Auto) [place] % (Auto) Lymph # (Auto) [place] # (Auto) Baso # (Auto) Seg Neutrophils % Seg Neuts % (Manual) Lymphocytes % (Manual) Seg Neutrophils # Seg Neutrophils # Man Lymphocytes # (Manual) D-Dimer ABG pH POC ABG pCO2 POC ABG pO2 ABG pO2 ABG HCO3 ABG O2 Saturation ABG Base Excess ABG Hemoglobin ABG Oxyhemoglobin ABG Sodium ABG Potassium ABG Chloride ABG Glucose Oxyhemoglobin Sodium Potassium Chloride Carbon Dioxide BUN Creatinine Glucose POC Glucose 165 H 220 H 311 H Hemoglobin A1c Lactic Acid Calcium Ferritin Total Bilirubin AST ALT Alkaline Phosphatase Lactate Dehydrogenase C-Reactive Protein Total Protein Albumin Triglycerides Arterial Blood Glucose Arterial Blood Ionized Calcium Ur Specific [place] Vancomycin Trough Coronavirus (PCR) 11/19/20 11/19/20 11/19/20 05:35 07:40 12:39 WBC RBC Hgb Hct Plt Count Lymph % (Auto) [place] % (Auto) Lymph # (Auto) [place] # (Auto) Baso # (Auto) Seg Neutrophils % Seg Neuts % (Manual) Lymphocytes % (Manual) Seg Neutrophils # Seg Neutrophils # Man Lymphocytes # (Manual) D-Dimer ABG pH POC ABG pCO2 POC ABG pO2 ABG pO2 ABG HCO3 ABG O2 Saturation ABG Base Excess ABG Hemoglobin ABG Oxyhemoglobin ABG Sodium ABG Potassium ABG Chloride ABG Glucose Oxyhemoglobin Sodium 132 L Potassium Chloride Carbon Dioxide BUN 25 H Creatinine 0.5 L Glucose 179 H POC Glucose 149 H 306 H Hemoglobin A1c Lactic Acid Calcium 7.5 L Ferritin Total Bilirubin AST ALT Alkaline Phosphatase 139 H Lactate Dehydrogenase C-Reactive Protein Total Protein Albumin 2.4 L Triglycerides Arterial Blood Glucose Arterial Blood Ionized Calcium Ur Specific [place] Vancomycin Trough Coronavirus (PCR) 11/19/20 11/19/2011/20/21 16:17 21:25 08:30 WBC RBC Hgb Hct Plt Count Lymph % (Auto) [place] % (Auto) Lymph # (Auto) [place] # (Auto) Baso # (Auto) Seg Neutrophils % Seg Neuts % (Manual) Lymphocytes % (Manual) Seg Neutrophils # Seg Neutrophils # Man Lymphocytes # (Manual) D-Dimer ABG pH POC ABG pCO2 POC ABG pO2 ABG pO2 ABG HCO3 ABG O2 Saturation ABG Base Excess ABG Hemoglobin ABG Oxyhemoglobin ABG Sodium ABG Potassium ABG Chloride ABG Glucose Oxyhemoglobin Sodium Potassium Chloride Carbon Dioxide BUN Creatinine Glucose POC Glucose 364 H 347 H 141 H Hemoglobin A1c Lactic Acid Calcium Ferritin Total Bilirubin AST ALT Alkaline Phosphatase Lactate Dehydrogenase C-Reactive Protein Total Protein Albumin Triglycerides Arterial Blood Glucose Arterial Blood Ionized Calcium Ur Specific [place] Vancomycin Trough Coronavirus (PCR) 11/20/20 11/20/20 11/20/20 08:50 11:32 16:19 WBC RBC Hgb Hct Plt Count Lymph % (Auto) [place] % (Auto) Lymph # (Auto) [place] # (Auto) Baso # (Auto) Seg Neutrophils % Seg Neuts % (Manual) Lymphocytes % (Manual) Seg Neutrophils # Seg Neutrophils # Man Lymphocytes # (Manual) D-Dimer ABG pH POC ABG pCO2 POC ABG pO2 ABG pO2 ABG HCO3 ABG O2 Saturation ABG Base Excess ABG Hemoglobin ABG Oxyhemoglobin ABG Sodium ABG Potassium ABG Chloride ABG Glucose Oxyhemoglobin Sodium 132 L Potassium Chloride 97.6 L Carbon Dioxide BUN 26 H Creatinine 0.5 L Glucose 201 H POC Glucose 296 H 327 H Hemoglobin A1c Lactic Acid Calcium 7.9 L Ferritin Total Bilirubin AST ALT Alkaline Phosphatase 137 H Lactate Dehydrogenase C-Reactive Protein Total Protein Albumin 2.6 L Triglycerides Arterial Blood Glucose Arterial Blood Ionized Calcium Ur Specific [place] Vancomycin Trough Coronavirus (PCR) 11/20/20 11/21/20 11/21/20 22:09 07:59 13:51 WBC RBC Hgb Hct Plt Count Lymph % (Auto) [place] % (Auto) Lymph # (Auto) [place] # (Auto) Baso # (Auto) Seg Neutrophils % Seg Neuts % (Manual) Lymphocytes % (Manual) Seg Neutrophils # Seg Neutrophils # Man Lymphocytes # (Manual) D-Dimer ABG pH POC ABG pCO2 POC ABG pO2 ABG pO2 ABG HCO3 ABG O2 Saturation ABG Base Excess ABG Hemoglobin ABG Oxyhemoglobin ABG Sodium ABG Potassium ABG Chloride ABG Glucose Oxyhemoglobin Sodium Potassium Chloride Carbon Dioxide BUN Creatinine Glucose POC Glucose 311 H 218 H 304 H Hemoglobin A1c Lactic Acid Calcium Ferritin Total Bilirubin AST ALT Alkaline Phosphatase Lactate Dehydrogenase C-Reactive Protein Total Protein Albumin Triglycerides Arterial Blood Glucose Arterial Blood Ionized Calcium Ur Specific [place] Vancomycin Trough Coronavirus (PCR) 11/21/20 11/21/20 11/21/20 16:09 21:34 23:00 WBC RBC Hgb Hct Plt Count Lymph % (Auto) [place] % (Auto) Lymph # (Auto) [place] # (Auto) Baso # (Auto) Seg Neutrophils % Seg Neuts % (Manual) Lymphocytes % (Manual) Seg Neutrophils # Seg Neutrophils # Man Lymphocytes # (Manual) D-Dimer ABG pH 7.206 L POC ABG pCO2 59.3 H POC ABG pO2 76.7 L ABG pO2 ABG HCO3 ABG O2 Saturation ABG Base Excess ABG Hemoglobin ABG Oxyhemoglobin ABG Sodium 133.1 L ABG Potassium ABG Chloride ABG Glucose 320 H Oxyhemoglobin Sodium Potassium Chloride Carbon Dioxide BUN Creatinine Glucose POC Glucose 239 H 279 H Hemoglobin A1c Lactic Acid Calcium Ferritin Total Bilirubin AST ALT Alkaline Phosphatase Lactate Dehydrogenase C-Reactive Protein Total Protein Albumin Triglycerides Arterial Blood Glucose 320 H Arterial Blood Ionized Calcium Ur Specific [place] Vancomycin Trough Coronavirus (PCR) 11/22/20 11/22/20 11/22/20 04:52 04:52 04:52 WBC RBC Hgb Hct Plt Count Lymph % (Auto) [place] % (Auto) Lymph # (Auto) [place] # (Auto) Baso # (Auto) Seg Neutrophils % Seg Neuts % (Manual) Lymphocytes % (Manual) Seg Neutrophils # Seg Neutrophils # Man Lymphocytes # (Manual) D-Dimer 1858.36 H ABG pH POC ABG pCO2 POC ABG pO2 ABG pO2 ABG HCO3 ABG O2 Saturation ABG Base Excess ABG Hemoglobin ABG Oxyhemoglobin ABG Sodium ABG Potassium ABG Chloride ABG Glucose Oxyhemoglobin Sodium Potassium Chloride Carbon Dioxide BUN Creatinine Glucose POC Glucose Hemoglobin A1c Lactic Acid Calcium Ferritin 734.2 H Total Bilirubin AST ALT Alkaline Phosphatase Lactate Dehydrogenase 404 H C-Reactive Protein 2.80 H Total Protein Albumin Triglycerides Arterial Blood Glucose Arterial Blood Ionized Calcium Ur Specific [place] Vancomycin Trough Coronavirus (PCR) 11/22/20 11/22/2011/22/21 05:12 05:39 11:50 WBC RBC Hgb Hct Plt Count Lymph % (Auto) [place] % (Auto) Lymph # (Auto) [place] # (Auto) Baso # (Auto) Seg Neutrophils % Seg Neuts % (Manual) Lymphocytes % (Manual) Seg Neutrophils # Seg Neutrophils # Man Lymphocytes # (Manual) D-Dimer ABG pH POC ABG pCO2 POC ABG pO2 51.0 L ABG pO2 ABG HCO3 ABG O2 Saturation ABG Base Excess ABG Hemoglobin ABG Oxyhemoglobin ABG Sodium 131.2 L ABG Potassium 4.6 H ABG Chloride ABG Glucose 317 H Oxyhemoglobin Sodium Potassium Chloride Carbon Dioxide BUN Creatinine Glucose POC Glucose 340 H 417 H Hemoglobin A1c Lactic Acid Calcium Ferritin Total Bilirubin AST ALT Alkaline Phosphatase Lactate Dehydrogenase C-Reactive Protein Total Protein Albumin Triglycerides Arterial Blood Glucose 317 H Arterial Blood Ionized Calcium 4.4 L Ur Specific [place] Vancomycin Trough Coronavirus (PCR) 11/22/20 11/22/20 11/22/20 12:22 12:22 17:10 WBC 14.4 H RBC Hgb Hct Plt Count Lymph % (Auto) [place] % (Auto) Lymph # (Auto) [place] # (Auto) Baso # (Auto) Seg Neutrophils % Seg Neuts % (Manual) 98.0 H Lymphocytes % (Manual) Seg Neutrophils # Seg Neutrophils # Man 14.1 H Lymphocytes # (Manual) 0.0 L D-Dimer ABG pH POC ABG pCO2 POC ABG pO2 ABG pO2 ABG HCO3 ABG O2 Saturation ABG Base Excess ABG Hemoglobin ABG Oxyhemoglobin ABG Sodium ABG Potassium ABG Chloride ABG Glucose Oxyhemoglobin Sodium 132 L Potassium Chloride Carbon Dioxide BUN 36 H Creatinine 0.6 L Glucose 219 H POC Glucose 157 H Hemoglobin A1c Lactic Acid Calcium 7.2 L Ferritin Total Bilirubin AST ALT Alkaline Phosphatase Lactate Dehydrogenase C-Reactive Protein Total Protein Albumin Triglycerides Arterial Blood Glucose Arterial Blood Ionized Calcium Ur Specific [place] Vancomycin Trough Coronavirus (PCR) 11/22/20 11/22/20 11/22/20 18:33 21:44 23:47 WBC RBC Hgb Hct Plt Count Lymph % (Auto) [place] % (Auto) Lymph # (Auto) [place] # (Auto) Baso # (Auto) Seg Neutrophils % Seg Neuts % (Manual) Lymphocytes % (Manual) Seg Neutrophils # Seg Neutrophils # Man Lymphocytes # (Manual) D-Dimer ABG pH POC ABG pCO2 POC ABG pO2 60.8 L ABG pO2 ABG HCO3 ABG O2 Saturation ABG Base Excess ABG Hemoglobin ABG Oxyhemoglobin 88.1 L ABG Sodium 135.1 L ABG Potassium ABG Chloride ABG Glucose 141 H Oxyhemoglobin Sodium Potassium Chloride Carbon Dioxide BUN Creatinine Glucose POC Glucose 117 H 123 H Hemoglobin A1c Lactic Acid Calcium Ferritin Total Bilirubin AST ALT Alkaline Phosphatase Lactate Dehydrogenase C-Reactive Protein Total Protein Albumin Triglycerides Arterial Blood Glucose 141 H Arterial Blood Ionized Calcium Ur Specific [place] Vancomycin Trough Coronavirus (PCR) 11/23/20 11/23/20 11/23/20 04:00 04:00 05:23 WBC 14.4 H RBC Hgb Hct Plt Count Lymph % (Auto) [place] % (Auto) Lymph # (Auto) [place] # (Auto) Baso # (Auto) Seg Neutrophils % Seg Neuts % (Manual) Lymphocytes % (Manual) Seg Neutrophils # Seg Neutrophils # Man Lymphocytes # (Manual) D-Dimer ABG pH POC ABG pCO2 POC ABG pO2 ABG pO2 ABG HCO3 ABG O2 Saturation ABG Base Excess ABG Hemoglobin ABG Oxyhemoglobin ABG Sodium ABG Potassium ABG Chloride ABG Glucose Oxyhemoglobin Sodium 136 L Potassium Chloride Carbon Dioxide BUN 33 H Creatinine 0.6 L Glucose 115 H POC Glucose 173 H Hemoglobin A1c Lactic Acid Calcium 7.1 L Ferritin Total Bilirubin AST 64 H ALT 75 H Alkaline Phosphatase Lactate Dehydrogenase C-Reactive Protein Total Protein 5.9 L D Albumin 2.4 L Triglycerides Arterial Blood Glucose Arterial Blood Ionized Calcium Ur Specific [place] Vancomycin Trough Coronavirus (PCR) 11/23/20 11/23/20 11/23/20 05:40 11:27 17:10 WBC RBC Hgb Hct Plt Count Lymph % (Auto) [place] % (Auto) Lymph # (Auto) [place] # (Auto) Baso # (Auto) Seg Neutrophils % Seg Neuts % (Manual) Lymphocytes % (Manual) Seg Neutrophils # Seg Neutrophils # Man Lymphocytes # (Manual) D-Dimer ABG pH POC ABG pCO2 POC ABG pO2 56.5 L ABG pO2 ABG HCO3 ABG O2 Saturation ABG Base Excess ABG Hemoglobin ABG Oxyhemoglobin ABG Sodium ABG Potassium ABG Chloride 109.0 H ABG Glucose 114 H Oxyhemoglobin Sodium Potassium Chloride Carbon Dioxide BUN Creatinine Glucose POC Glucose 114 H 136 H Hemoglobin A1c Lactic Acid Calcium Ferritin Total Bilirubin AST ALT Alkaline Phosphatase Lactate Dehydrogenase C-Reactive Protein Total Protein Albumin Triglycerides Arterial Blood Glucose 114 H Arterial Blood Ionized Calcium 4.5 L Ur Specific [place] Vancomycin Trough Coronavirus (PCR) 11/24/20 11/24/20 11/24/20 05:14 05:14 05:14 WBC RBC Hgb Hct Plt Count Lymph % (Auto) [place] % (Auto) Lymph # (Auto) [place] # (Auto) Baso # (Auto) Seg Neutrophils % Seg Neuts % (Manual) Lymphocytes % (Manual) Seg Neutrophils # Seg Neutrophils # Man Lymphocytes # (Manual) D-Dimer 1433.39 H ABG pH POC ABG pCO2 POC ABG pO2 ABG pO2 ABG HCO3 ABG O2 Saturation ABG Base Excess ABG Hemoglobin ABG Oxyhemoglobin ABG Sodium ABG Potassium ABG Chloride ABG Glucose Oxyhemoglobin Sodium Potassium Chloride Carbon Dioxide BUN Creatinine Glucose POC Glucose Hemoglobin A1c Lactic Acid Calcium Ferritin 997.5 H Total Bilirubin AST ALT Alkaline Phosphatase Lactate Dehydrogenase 463 H C-Reactive Protein Total Protein Albumin Triglycerides Arterial Blood Glucose Arterial Blood Ionized Calcium Ur Specific [place] Vancomycin Trough Coronavirus (PCR) 11/24/20 11/24/20 11/24/20 05:31 05:36 12:05 WBC RBC Hgb Hct Plt Count Lymph % (Auto) [place] % (Auto) Lymph # (Auto) [place] # (Auto) Baso # (Auto) Seg Neutrophils % Seg Neuts % (Manual) Lymphocytes % (Manual) Seg Neutrophils # Seg Neutrophils # Man Lymphocytes # (Manual) D-Dimer ABG pH POC ABG pCO2 POC ABG pO2 57.2 L ABG pO2 ABG HCO3 ABG O2 Saturation ABG Base Excess ABG Hemoglobin ABG Oxyhemoglobin ABG Sodium ABG Potassium ABG Chloride ABG Glucose 180 H Oxyhemoglobin Sodium Potassium Chloride Carbon Dioxide BUN Creatinine Glucose POC Glucose 199 H 143 H Hemoglobin A1c Lactic Acid Calcium Ferritin Total Bilirubin AST ALT Alkaline Phosphatase Lactate Dehydrogenase C-Reactive Protein Total Protein Albumin Triglycerides Arterial Blood Glucose 180 H Arterial Blood Ionized Calcium 4.5 L Ur Specific [place] Vancomycin Trough Coronavirus (PCR) 11/24/20 11/24/20 11/24/20 12:14 17:47 23:47 WBC RBC Hgb Hct Plt Count Lymph % (Auto) [place] % (Auto) Lymph # (Auto) [place] # (Auto) Baso # (Auto) Seg Neutrophils % Seg Neuts % (Manual) Lymphocytes % (Manual) Seg Neutrophils # Seg Neutrophils # Man Lymphocytes # (Manual) D-Dimer ABG pH 7.261 L POC ABG pCO2 59.7 H POC ABG pO2 75.7 L ABG pO2 ABG HCO3 ABG O2 Saturation ABG Base Excess ABG Hemoglobin ABG Oxyhemoglobin 92.5 L ABG Sodium ABG Potassium ABG Chloride 108.0 H ABG Glucose 150 H Oxyhemoglobin Sodium Potassium Chloride Carbon Dioxide BUN Creatinine Glucose POC Glucose 223 H 179 H Hemoglobin A1c Lactic Acid Calcium Ferritin Total Bilirubin AST ALT Alkaline Phosphatase Lactate Dehydrogenase C-Reactive Protein Total Protein Albumin Triglycerides Arterial Blood Glucose 150 H Arterial Blood Ionized Calcium Ur Specific [place] Vancomycin Trough Coronavirus (PCR) 11/25/20 11/25/20 11/25/20 03:29 05:07 05:15 WBC 13.9 H RBC Hgb Hct Plt Count Lymph % (Auto) [place] % (Auto) Lymph # (Auto) [place] # (Auto) Baso # (Auto) Seg Neutrophils % Seg Neuts % (Manual) 97.0 H Lymphocytes % (Manual) Seg Neutrophils # Seg Neutrophils # Man 13.5 H Lymphocytes # (Manual) 0.0 L D-Dimer ABG pH 7.272 L POC ABG pCO2 69.0 H POC ABG pO2 132.9 H ABG pO2 ABG HCO3 ABG O2 Saturation ABG Base Excess ABG Hemoglobin ABG Oxyhemoglobin ABG Sodium ABG Potassium ABG Chloride ABG Glucose 174 H Oxyhemoglobin Sodium Potassium Chloride Carbon Dioxide BUN Creatinine Glucose POC Glucose 168 H Hemoglobin A1c Lactic Acid Calcium Ferritin Total Bilirubin AST ALT Alkaline Phosphatase Lactate Dehydrogenase C-Reactive Protein Total Protein Albumin Triglycerides Arterial Blood Glucose 174 H Arterial Blood Ionized Calcium Ur Specific [place] Vancomycin Trough Coronavirus (PCR) 11/25/20 11/25/20 11/25/20 05:15 11:25 17:35 WBC RBC Hgb Hct Plt Count Lymph % (Auto) [place] % (Auto) Lymph # (Auto) [place] # (Auto) Baso # (Auto) Seg Neutrophils % Seg Neuts % (Manual) Lymphocytes % (Manual) Seg Neutrophils # Seg Neutrophils # Man Lymphocytes # (Manual) D-Dimer ABG pH POC ABG pCO2 POC ABG pO2 ABG pO2 ABG HCO3 ABG O2 Saturation ABG Base Excess ABG Hemoglobin ABG Oxyhemoglobin ABG Sodium ABG Potassium ABG Chloride ABG Glucose Oxyhemoglobin Sodium Potassium Chloride Carbon Dioxide BUN 29 H Creatinine 0.5 L Glucose 161 H POC Glucose 224 H 228 H Hemoglobin A1c Lactic Acid Calcium 7.8 L Ferritin Total Bilirubin AST 89 H ALT 129 H Alkaline Phosphatase Lactate Dehydrogenase C-Reactive Protein Total Protein 5.8 L Albumin 2.5 L Triglycerides Arterial Blood Glucose Arterial Blood Ionized Calcium Ur Specific [place] Vancomycin Trough Coronavirus (PCR) 11/25/20 11/25/20 11/26/20 20:45 23:28 04:00 WBC RBC Hgb Hct Plt Count Lymph % (Auto) [place] % (Auto) Lymph # (Auto) [place] # (Auto) Baso # (Auto) Seg Neutrophils % Seg Neuts % (Manual) Lymphocytes % (Manual) Seg Neutrophils # Seg Neutrophils # Man Lymphocytes # (Manual) D-Dimer ABG pH POC ABG pCO2 POC ABG pO2 ABG pO2 ABG HCO3 ABG O2 Saturation ABG Base Excess ABG Hemoglobin ABG Oxyhemoglobin ABG Sodium ABG Potassium ABG Chloride ABG Glucose Oxyhemoglobin Sodium Potassium Chloride Carbon Dioxide BUN Creatinine Glucose POC Glucose 177 H 243 H Hemoglobin A1c Lactic Acid Calcium Ferritin 778.8 H Total Bilirubin AST ALT Alkaline Phosphatase Lactate Dehydrogenase C-Reactive Protein Total Protein Albumin Triglycerides Arterial Blood Glucose Arterial Blood Ionized Calcium Ur Specific [place] Vancomycin Trough Coronavirus (PCR) 11/26/20 11/26/20 11/26/20 04:00 05:34 06:04 WBC RBC Hgb Hct Plt Count Lymph % (Auto) [place] % (Auto) Lymph # (Auto) [place] # (Auto) Baso # (Auto) Seg Neutrophils % Seg Neuts % (Manual) Lymphocytes % (Manual) Seg Neutrophils # Seg Neutrophils # Man Lymphocytes # (Manual) D-Dimer 926.11 H ABG pH POC ABG pCO2 POC ABG pO2 ABG pO2 ABG HCO3 ABG O2 Saturation ABG Base Excess ABG Hemoglobin ABG Oxyhemoglobin ABG Sodium ABG Potassium ABG Chloride ABG Glucose Oxyhemoglobin Sodium Potassium Chloride Carbon Dioxide 39 H D BUN 30 H Creatinine 0.5 L Glucose 193 H POC Glucose 178 H Hemoglobin A1c Lactic Acid Calcium 7.7 L Ferritin Total Bilirubin AST 65 H ALT 132 H Alkaline Phosphatase Lactate Dehydrogenase 288 H C-Reactive Protein 1.40 H Total Protein 5.7 L Albumin 2.4 L Triglycerides Arterial Blood Glucose Arterial Blood Ionized Calcium Ur Specific [place] Vancomycin Trough Coronavirus (PCR) 11/26/20 11/26/20 11/26/20 06:04 08:47 11:20 WBC 12.4 H RBC Hgb Hct Plt Count Lymph % (Auto) [place] % (Auto) Lymph # (Auto) [place] # (Auto) Baso # (Auto) Seg Neutrophils % Seg Neuts % (Manual) 98.0 H Lymphocytes % (Manual) 1.0 L Seg Neutrophils # Seg Neutrophils # Man 12.2 H Lymphocytes # (Manual) 0.1 L D-Dimer ABG pH POC ABG pCO2 75.2 H POC ABG pO2 61.9 L ABG pO2 ABG HCO3 ABG O2 Saturation ABG Base Excess ABG Hemoglobin ABG Oxyhemoglobin 90.3 L ABG Sodium ABG Potassium ABG Chloride ABG Glucose 243 H Oxyhemoglobin Sodium Potassium Chloride Carbon Dioxide BUN Creatinine Glucose POC Glucose 255 H Hemoglobin A1c Lactic Acid Calcium Ferritin Total Bilirubin AST ALT Alkaline Phosphatase Lactate Dehydrogenase C-Reactive Protein Total Protein Albumin Triglycerides Arterial Blood Glucose 243 H Arterial Blood Ionized Calcium Ur Specific [place] Vancomycin Trough Coronavirus (PCR) 11/26/20 11/26/20 11/26/20 16:20 17:15 23:41 WBC RBC Hgb Hct Plt Count Lymph % (Auto) [place] % (Auto) Lymph # (Auto) [place] # (Auto) Baso # (Auto) Seg Neutrophils % Seg Neuts % (Manual) Lymphocytes % (Manual) Seg Neutrophils # Seg Neutrophils # Man Lymphocytes # (Manual) D-Dimer ABG pH POC ABG pCO2 66.6 H POC ABG pO2 78.1 L ABG pO2 ABG HCO3 ABG O2 Saturation ABG Base Excess ABG Hemoglobin ABG Oxyhemoglobin ABG Sodium ABG Potassium ABG Chloride ABG Glucose 244 H Oxyhemoglobin Sodium Potassium Chloride Carbon Dioxide BUN Creatinine Glucose POC Glucose 219 H 210 H Hemoglobin A1c Lactic Acid Calcium Ferritin Total Bilirubin AST ALT Alkaline Phosphatase Lactate Dehydrogenase C-Reactive Protein Total Protein Albumin Triglycerides Arterial Blood Glucose 244 H Arterial Blood Ionized Calcium Ur Specific [place] Vancomycin Trough Coronavirus (PCR) 11/27/20 11/27/20 11/27/20 04:46 05:38 06:25 WBC 13.8 H RBC Hgb Hct Plt Count Lymph % (Auto) 2.0 L [place] % (Auto) Lymph # (Auto) 0.3 L [place] # (Auto) Baso # (Auto) Seg Neutrophils % Seg Neuts % (Manual) 96.0 H Lymphocytes % (Manual) Seg Neutrophils # 12.7 H Seg Neutrophils # Man 13.2 H Lymphocytes # (Manual) 0.0 L D-Dimer ABG pH POC ABG pCO2 63.0 H POC ABG pO2 53.6 L ABG pO2 ABG HCO3 ABG O2 Saturation ABG Base Excess ABG Hemoglobin ABG Oxyhemoglobin 87.8 L ABG Sodium 115.4 L ABG Potassium ABG Chloride ABG Glucose 219 H Oxyhemoglobin Sodium Potassium Chloride Carbon Dioxide BUN Creatinine Glucose POC Glucose 227 H Hemoglobin A1c Lactic Acid Calcium Ferritin Total Bilirubin AST ALT Alkaline Phosphatase Lactate Dehydrogenase C-Reactive Protein Total Protein Albumin Triglycerides Arterial Blood Glucose 219 H Arterial Blood Ionized Calcium Ur Specific [place] Vancomycin Trough Coronavirus (PCR) 11/27/20 11/27/20 11/27/20 06:25 18:05 23:29 WBC RBC Hgb Hct Plt Count Lymph % (Auto) [place] % (Auto) Lymph # (Auto) [place] # (Auto) Baso # (Auto) Seg Neutrophils % Seg Neuts % (Manual) Lymphocytes % (Manual) Seg Neutrophils # Seg Neutrophils # Man Lymphocytes # (Manual) D-Dimer ABG pH POC ABG pCO2 POC ABG pO2 ABG pO2 ABG HCO3 ABG O2 Saturation ABG Base Excess ABG Hemoglobin ABG Oxyhemoglobin ABG Sodium ABG Potassium ABG Chloride ABG Glucose Oxyhemoglobin Sodium Potassium Chloride Carbon Dioxide 38 H BUN 34 H Creatinine 0.4 L Glucose 243 H POC Glucose 329 H 227 H Hemoglobin A1c Lactic Acid Calcium 7.9 L Ferritin Total Bilirubin AST 50 H ALT 110 H Alkaline Phosphatase Lactate Dehydrogenase C-Reactive Protein Total Protein 6.1 L Albumin 2.4 L Triglycerides Arterial Blood Glucose Arterial Blood Ionized Calcium Ur Specific [place] Vancomycin Trough Coronavirus (PCR) 11/28/20 11/28/20 11/28/20 03:45 03:45 03:46 WBC 12.2 H RBC Hgb Hct Plt Count Lymph % (Auto) [place] % (Auto) Lymph # (Auto) [place] # (Auto) Baso # (Auto) Seg Neutrophils % Seg Neuts % (Manual) 93.0 H Lymphocytes % (Manual) 2.0 L Seg Neutrophils # Seg Neutrophils # Man 11.3 H Lymphocytes # (Manual) 0.2 L D-Dimer ABG pH POC ABG pCO2 68.4 H POC ABG pO2 55.4 L ABG pO2 ABG HCO3 ABG O2 Saturation ABG Base Excess ABG Hemoglobin ABG Oxyhemoglobin ABG Sodium ABG Potassium ABG Chloride ABG Glucose 197 H Oxyhemoglobin Sodium Potassium Chloride Carbon Dioxide 36 H BUN 37 H Creatinine 0.4 L Glucose 194 H POC Glucose Hemoglobin A1c Lactic Acid Calcium 8.1 L Ferritin Total Bilirubin AST ALT 86 H Alkaline Phosphatase Lactate Dehydrogenase C-Reactive Protein Total Protein 6.0 L Albumin 2.3 L Triglycerides Arterial Blood Glucose 197 H Arterial Blood Ionized Calcium Ur Specific [place] Vancomycin Trough Coronavirus (PCR) 11/28/20 11/28/20 11/29/20 05:24 12:21 04:41 WBC RBC Hgb Hct Plt Count Lymph % (Auto) [place] % (Auto) Lymph # (Auto) [place] # (Auto) Baso # (Auto) Seg Neutrophils % Seg Neuts % (Manual) Lymphocytes % (Manual) Seg Neutrophils # Seg Neutrophils # Man Lymphocytes # (Manual) D-Dimer ABG pH POC ABG pCO2 55.1 H POC ABG pO2 53.6 L ABG pO2 ABG HCO3 ABG O2 Saturation ABG Base Excess ABG Hemoglobin ABG Oxyhemoglobin 87.1 L ABG Sodium 131.2 L ABG Potassium ABG Chloride ABG Glucose 164 H Oxyhemoglobin Sodium Potassium Chloride Carbon Dioxide BUN Creatinine Glucose POC Glucose 173 H 126 H Hemoglobin A1c Lactic Acid Calcium Ferritin Total Bilirubin AST ALT Alkaline Phosphatase Lactate Dehydrogenase C-Reactive Protein Total Protein Albumin Triglycerides Arterial Blood Glucose 164 H Arterial Blood Ionized Calcium 4.4 L Ur Specific [place] Vancomycin Trough Coronavirus (PCR) 11/29/20 11/29/20 11/29/20 05:29 12:41 13:28 WBC RBC Hgb Hct Plt Count Lymph % (Auto) [place] % (Auto) Lymph # (Auto) [place] # (Auto) Baso # (Auto) Seg Neutrophils % Seg Neuts % (Manual) Lymphocytes % (Manual) Seg Neutrophils # Seg Neutrophils # Man Lymphocytes # (Manual) D-Dimer ABG pH POC ABG pCO2 POC ABG pO2 ABG pO2 ABG HCO3 ABG O2 Saturation ABG Base Excess ABG Hemoglobin ABG Oxyhemoglobin ABG Sodium ABG Potassium ABG Chloride ABG Glucose Oxyhemoglobin Sodium Potassium Chloride Carbon Dioxide 40 H BUN 32 H Creatinine 0.4 L Glucose 274 H POC Glucose 173 H 257 H Hemoglobin A1c Lactic Acid Calcium 7.2 L Ferritin Total Bilirubin AST 57 H ALT 102 H Alkaline Phosphatase Lactate Dehydrogenase C-Reactive Protein Total Protein 5.7 L Albumin 2.1 L Triglycerides Arterial Blood Glucose Arterial Blood Ionized Calcium Ur Specific [place] Vancomycin Trough Coronavirus (PCR) 11/29/20 11/29/20 11/29/20 15:40 17:36 21:26 WBC RBC Hgb Hct Plt Count Lymph % (Auto) [place] % (Auto) Lymph # (Auto) [place] # (Auto) Baso # (Auto) Seg Neutrophils % Seg Neuts % (Manual) Lymphocytes % (Manual) Seg Neutrophils # Seg Neutrophils # Man Lymphocytes # (Manual) D-Dimer ABG pH POC ABG pCO2 POC ABG pO2 ABG pO2 ABG HCO3 ABG O2 Saturation ABG Base Excess ABG Hemoglobin ABG Oxyhemoglobin ABG Sodium ABG Potassium ABG Chloride ABG Glucose Oxyhemoglobin Sodium Potassium Chloride Carbon Dioxide BUN Creatinine Glucose POC Glucose 240 H 244 H Hemoglobin A1c Lactic Acid Calcium Ferritin Total Bilirubin AST ALT Alkaline Phosphatase Lactate Dehydrogenase C-Reactive Protein Total Protein Albumin Triglycerides Arterial Blood Glucose Arterial Blood Ionized Calcium Ur Specific [place] Vancomycin Trough 4.0 L Coronavirus (PCR) 11/29/20 11/30/20 11/30/20 23:26 03:30 03:30 WBC RBC Hgb Hct Plt Count Lymph % (Auto) [place] % (Auto) Lymph # (Auto) [place] # (Auto) Baso # (Auto) Seg Neutrophils % Seg Neuts % (Manual) 97.0 H Lymphocytes % (Manual) 1.0 L Seg Neutrophils # Seg Neutrophils # Man 9.9 H Lymphocytes # (Manual) 0.1 L D-Dimer ABG pH POC ABG pCO2 POC ABG pO2 ABG pO2 ABG HCO3 ABG O2 Saturation ABG Base Excess ABG Hemoglobin ABG Oxyhemoglobin ABG Sodium ABG Potassium ABG Chloride ABG Glucose Oxyhemoglobin Sodium Potassium Chloride Carbon Dioxide 38 H BUN 34 H Creatinine 0.4 L Glucose 305 H POC Glucose 283 H Hemoglobin A1c Lactic Acid Calcium 7.6 L Ferritin Total Bilirubin AST ALT 89 H Alkaline Phosphatase Lactate Dehydrogenase C-Reactive Protein Total Protein 6.0 L Albumin 2.3 L Triglycerides Arterial Blood Glucose Arterial Blood Ionized Calcium Ur Specific [place] Vancomycin Trough Coronavirus (PCR) 11/30/20 11/30/20 11/30/20 03:57 05:22 12:05 WBC RBC Hgb Hct Plt Count Lymph % (Auto) [place] % (Auto) Lymph # (Auto) [place] # (Auto) Baso # (Auto) Seg Neutrophils % Seg Neuts % (Manual) Lymphocytes % (Manual) Seg Neutrophils # Seg Neutrophils # Man Lymphocytes # (Manual) D-Dimer ABG pH POC ABG pCO2 60.8 H POC ABG pO2 51.1 L ABG pO2 ABG HCO3 ABG O2 Saturation ABG Base Excess ABG Hemoglobin ABG Oxyhemoglobin 84.6 L ABG Sodium ABG Potassium ABG Chloride ABG Glucose 315 H Oxyhemoglobin Sodium Potassium Chloride Carbon Dioxide BUN Creatinine Glucose POC Glucose 295 H 413 H Hemoglobin A1c Lactic Acid Calcium Ferritin Total Bilirubin AST ALT Alkaline Phosphatase Lactate Dehydrogenase C-Reactive Protein Total Protein Albumin Triglycerides Arterial Blood Glucose 315 H Arterial Blood Ionized Calcium 4.5 L Ur Specific [place] Vancomycin Trough Coronavirus (PCR) 11/30/20 11/30/20 12/01/20 17:24 23:25 02:14 WBC RBC Hgb Hct Plt Count Lymph % (Auto) [place] % (Auto) Lymph # (Auto) [place] # (Auto) Baso # (Auto) Seg Neutrophils % Seg Neuts % (Manual) Lymphocytes % (Manual) Seg Neutrophils # Seg Neutrophils # Man Lymphocytes # (Manual) D-Dimer ABG pH 7.278 L POC ABG pCO2 78.1 H POC ABG pO2 79.5 L ABG pO2 ABG HCO3 ABG O2 Saturation ABG Base Excess ABG Hemoglobin 11.6 L ABG Oxyhemoglobin ABG Sodium 134.5 L ABG Potassium 4.6 H ABG Chloride ABG Glucose 286 H Oxyhemoglobin Sodium Potassium Chloride Carbon Dioxide BUN Creatinine Glucose POC Glucose 305 H 302 H Hemoglobin A1c Lactic Acid Calcium Ferritin Total Bilirubin AST ALT Alkaline Phosphatase Lactate Dehydrogenase C-Reactive Protein Total Protein Albumin Triglycerides Arterial Blood Glucose 286 H Arterial Blood Ionized Calcium Ur Specific [place] Vancomycin Trough Coronavirus (PCR) 12/01/20 12/01/20 12/01/20 03:35 03:35 05:22 WBC 13.4 H RBC 3.54 L Hgb 10.4 L Hct 31.8 L Plt Count Lymph % (Auto) [place] % (Auto) Lymph # (Auto) [place] # (Auto) Baso # (Auto) Seg Neutrophils % Seg Neuts % (Manual) 95.0 H Lymphocytes % (Manual) 3.0 L Seg Neutrophils # Seg Neutrophils # Man 12.7 H Lymphocytes # (Manual) 0.4 L D-Dimer ABG pH POC ABG pCO2 POC ABG pO2 ABG pO2 ABG HCO3 ABG O2 Saturation ABG Base Excess ABG Hemoglobin ABG Oxyhemoglobin ABG Sodium ABG Potassium ABG Chloride ABG Glucose Oxyhemoglobin Sodium Potassium Chloride Carbon Dioxide 35 H BUN 34 H Creatinine 0.5 L Glucose 279 H POC Glucose 259 H Hemoglobin A1c Lactic Acid Calcium 7.6 L Ferritin Total Bilirubin AST ALT 63 H Alkaline Phosphatase Lactate Dehydrogenase C-Reactive Protein Total Protein 4.8 L Albumin 2.1 L Triglycerides Arterial Blood Glucose Arterial Blood Ionized Calcium Ur Specific [place] Vancomycin Trough Coronavirus (PCR) 12/01/20 12/01/20 12/01/20 12:05 17:40 23:46 WBC RBC Hgb Hct Plt Count Lymph % (Auto) [place] % (Auto) Lymph # (Auto) [place] # (Auto) Baso # (Auto) Seg Neutrophils % Seg Neuts % (Manual) Lymphocytes % (Manual) Seg Neutrophils # Seg Neutrophils # Man Lymphocytes # (Manual) D-Dimer ABG pH POC ABG pCO2 POC ABG pO2 ABG pO2 ABG HCO3 ABG O2 Saturation ABG Base Excess ABG Hemoglobin ABG Oxyhemoglobin ABG Sodium ABG Potassium ABG Chloride ABG Glucose Oxyhemoglobin Sodium Potassium Chloride Carbon Dioxide BUN Creatinine Glucose POC Glucose 197 H 244 H 284 H Hemoglobin A1c Lactic Acid Calcium Ferritin Total Bilirubin AST ALT Alkaline Phosphatase Lactate Dehydrogenase C-Reactive Protein Total Protein Albumin Triglycerides Arterial Blood Glucose Arterial Blood Ionized Calcium Ur Specific [place] Vancomycin Trough Coronavirus (PCR) 12/02/20 12/02/20 12/02/20 02:14 03:03 04:11 WBC 16.5 H RBC 3.55 L Hgb 10.5 L Hct 31.9 L Plt Count Lymph % (Auto) [place] % (Auto) Lymph # (Auto) [place] # (Auto) Baso # (Auto) Seg Neutrophils % Seg Neuts % (Manual) 90.0 H Lymphocytes % (Manual) 3.0 L Seg Neutrophils # Seg Neutrophils # Man 14.9 H Lymphocytes # (Manual) 0.5 L D-Dimer ABG pH POC ABG pCO2 74.8 H POC ABG pO2 58.9 L ABG pO2 ABG HCO3 ABG O2 Saturation ABG Base Excess ABG Hemoglobin 11.5 L ABG Oxyhemoglobin ABG Sodium ABG Potassium ABG Chloride ABG Glucose 264 H Oxyhemoglobin Sodium Potassium Chloride Carbon Dioxide 37 H BUN 30 H Creatinine 0.4 L Glucose 245 H POC Glucose Hemoglobin A1c Lactic Acid Calcium 7.5 L Ferritin Total Bilirubin AST ALT Alkaline Phosphatase Lactate Dehydrogenase C-Reactive Protein Total Protein 5.2 L Albumin 2.2 L Triglycerides Arterial Blood Glucose 264 H Arterial Blood Ionized Calcium 4.5 L Ur Specific [place] Vancomycin Trough Coronavirus (PCR) 12/02/20 12/02/20 12/02/20 05:19 11:46 17:52 WBC RBC Hgb Hct Plt Count Lymph % (Auto) [place] % (Auto) Lymph # (Auto) [place] # (Auto) Baso # (Auto) Seg Neutrophils % Seg Neuts % (Manual) Lymphocytes % (Manual) Seg Neutrophils # Seg Neutrophils # Man Lymphocytes # (Manual) D-Dimer ABG pH POC ABG pCO2 POC ABG pO2 ABG pO2 ABG HCO3 ABG O2 Saturation ABG Base Excess ABG Hemoglobin ABG Oxyhemoglobin ABG Sodium ABG Potassium ABG Chloride ABG Glucose Oxyhemoglobin Sodium Potassium Chloride Carbon Dioxide BUN Creatinine Glucose POC Glucose 238 H 236 H 233 H Hemoglobin A1c Lactic Acid Calcium Ferritin Total Bilirubin AST ALT Alkaline Phosphatase Lactate Dehydrogenase C-Reactive Protein Total Protein Albumin Triglycerides Arterial Blood Glucose Arterial Blood Ionized Calcium Ur Specific [place] Vancomycin Trough Coronavirus (PCR) 12/02/20 12/03/20 12/03/20 23:23 03:21 04:35 WBC RBC Hgb Hct Plt Count 112 L Lymph % (Auto) [place] % (Auto) Lymph # (Auto) [place] # (Auto) Baso # (Auto) Seg Neutrophils % Seg Neuts % (Manual) 93.0 H Lymphocytes % (Manual) 4.0 L Seg Neutrophils # Seg Neutrophils # Man 9.1 H Lymphocytes # (Manual) 0.4 L D-Dimer ABG pH 7.299 L POC ABG pCO2 82.1 H POC ABG pO2 62.4 L ABG pO2 ABG HCO3 ABG O2 Saturation ABG Base Excess ABG Hemoglobin 11.5 L ABG Oxyhemoglobin 89.6 L ABG Sodium 134.3 L ABG Potassium ABG Chloride 95.0 L ABG Glucose 203 H Oxyhemoglobin Sodium Potassium Chloride Carbon Dioxide BUN Creatinine Glucose POC Glucose 213 H Hemoglobin A1c Lactic Acid Calcium Ferritin Total Bilirubin AST ALT Alkaline Phosphatase Lactate Dehydrogenase C-Reactive Protein Total Protein Albumin Triglycerides Arterial Blood Glucose 203 H Arterial Blood Ionized Calcium 4.5 L Ur Specific [place] Vancomycin Trough Coronavirus (PCR) 12/03/20 12/03/20 12/03/20 04:35 05:42 11:28 WBC RBC Hgb Hct Plt Count Lymph % (Auto) [place] % (Auto) Lymph # (Auto) [place] # (Auto) Baso # (Auto) Seg Neutrophils % Seg Neuts % (Manual) Lymphocytes % (Manual) Seg Neutrophils # Seg Neutrophils # Man Lymphocytes # (Manual) D-Dimer ABG pH POC ABG pCO2 POC ABG pO2 ABG pO2 ABG HCO3 ABG O2 Saturation ABG Base Excess ABG Hemoglobin ABG Oxyhemoglobin ABG Sodium ABG Potassium ABG Chloride ABG Glucose Oxyhemoglobin Sodium Potassium Chloride 97.8 L Carbon Dioxide 43 H* BUN 25 H Creatinine 0.3 L Glucose 214 H POC Glucose 193 H 211 H Hemoglobin A1c Lactic Acid Calcium 7.7 L Ferritin Total Bilirubin AST ALT 63 H Alkaline Phosphatase 132 H Lactate Dehydrogenase C-Reactive Protein Total Protein 5.1 L Albumin 2.4 L Triglycerides Arterial Blood Glucose Arterial Blood Ionized Calcium Ur Specific [place] Vancomycin Trough Coronavirus (PCR) 12/03/20 12/03/20 12/04/20 17:45 23:57 00:11 WBC RBC Hgb Hct Plt Count Lymph % (Auto) [place] % (Auto) Lymph # (Auto) [place] # (Auto) Baso # (Auto) Seg Neutrophils % Seg Neuts % (Manual) Lymphocytes % (Manual) Seg Neutrophils # Seg Neutrophils # Man Lymphocytes # (Manual) D-Dimer ABG pH POC ABG pCO2 POC ABG pO2 ABG pO2 ABG HCO3 ABG O2 Saturation ABG Base Excess ABG Hemoglobin ABG Oxyhemoglobin ABG Sodium ABG Potassium ABG Chloride ABG Glucose Oxyhemoglobin Sodium Potassium Chloride Carbon Dioxide BUN Creatinine Glucose POC Glucose 231 H 240 H 239 H Hemoglobin A1c Lactic Acid Calcium Ferritin Total Bilirubin AST ALT Alkaline Phosphatase Lactate Dehydrogenase C-Reactive Protein Total Protein Albumin Triglycerides Arterial Blood Glucose Arterial Blood Ionized Calcium Ur Specific [place] Vancomycin Trough Coronavirus (PCR) 12/04/20 12/04/20 12/04/20 04:00 05:20 05:34 WBC RBC Hgb Hct Plt Count Lymph % (Auto) [place] % (Auto) Lymph # (Auto) [place] # (Auto) Baso # (Auto) Seg Neutrophils % Seg Neuts % (Manual) Lymphocytes % (Manual) Seg Neutrophils # Seg Neutrophils # Man Lymphocytes # (Manual) D-Dimer ABG pH POC ABG pCO2 84.4 H POC ABG pO2 68.0 L ABG pO2 ABG HCO3 ABG O2 Saturation ABG Base Excess ABG Hemoglobin 11.6 L ABG Oxyhemoglobin ABG Sodium 130.9 L ABG Potassium ABG Chloride 90.0 L ABG Glucose 244 H Oxyhemoglobin Sodium Potassium Chloride Carbon Dioxide BUN Creatinine Glucose POC Glucose 241 H 213 H Hemoglobin A1c Lactic Acid Calcium Ferritin Total Bilirubin AST ALT Alkaline Phosphatase Lactate Dehydrogenase C-Reactive Protein Total Protein Albumin Triglycerides Arterial Blood Glucose 244 H Arterial Blood Ionized Calcium 4.4 L Ur Specific [place] Vancomycin Trough Coronavirus (PCR) 12/04/20 12/04/20 12/04/20 11:36 16:53 23:32 WBC RBC Hgb Hct Plt Count Lymph % (Auto) [place] % (Auto) Lymph # (Auto) [place] # (Auto) Baso # (Auto) Seg Neutrophils % Seg Neuts % (Manual) Lymphocytes % (Manual) Seg Neutrophils # Seg Neutrophils # Man Lymphocytes # (Manual) D-Dimer ABG pH POC ABG pCO2 POC ABG pO2 ABG pO2 ABG HCO3 ABG O2 Saturation ABG Base Excess ABG Hemoglobin ABG Oxyhemoglobin ABG Sodium ABG Potassium ABG Chloride ABG Glucose Oxyhemoglobin Sodium Potassium Chloride Carbon Dioxide BUN Creatinine Glucose POC Glucose 196 H 127 H 230 H Hemoglobin A1c Lactic Acid Calcium Ferritin Total Bilirubin AST ALT Alkaline Phosphatase Lactate Dehydrogenase C-Reactive Protein Total Protein Albumin Triglycerides Arterial Blood Glucose Arterial Blood Ionized Calcium Ur Specific [place] Vancomycin Trough Coronavirus (PCR) 12/04/20 12/05/20 12/05/20 Unknown 04:16 05:21 WBC RBC Hgb Hct Plt Count Lymph % (Auto) [place] % (Auto) Lymph # (Auto) [place] # (Auto) Baso # (Auto) Seg Neutrophils % Seg Neuts % (Manual) Lymphocytes % (Manual) Seg Neutrophils # Seg Neutrophils # Man Lymphocytes # (Manual) D-Dimer ABG pH POC ABG pCO2 86.7 H POC ABG pO2 58.0 L ABG pO2 ABG HCO3 ABG O2 Saturation ABG Base Excess ABG Hemoglobin 11.6 L ABG Oxyhemoglobin 89 L ABG Sodium 130.1 L ABG Potassium 4.9 H ABG Chloride 89.0 L ABG Glucose 254 H Oxyhemoglobin Sodium 136 L Potassium Chloride 90.0 L Carbon Dioxide 46 H* BUN 24 H Creatinine 0.3 L Glucose 226 H POC Glucose 213 H Hemoglobin A1c Lactic Acid Calcium 7.6 L Ferritin Total Bilirubin AST 46 H ALT 78 H Alkaline Phosphatase 172 H Lactate Dehydrogenase C-Reactive Protein Total Protein 6.0 L Albumin 2.8 L Triglycerides 156 H Arterial Blood Glucose 254 H Arterial Blood Ionized Calcium 4.4 L Ur Specific [place] Vancomycin Trough Coronavirus (PCR) 12/05/20 12/05/20 12/05/20 11:22 17:26 23:38 WBC RBC Hgb Hct Plt Count Lymph % (Auto) [place] % (Auto) Lymph # (Auto) [place] # (Auto) Baso # (Auto) Seg Neutrophils % Seg Neuts % (Manual) Lymphocytes % (Manual) Seg Neutrophils # Seg Neutrophils # Man Lymphocytes # (Manual) D-Dimer ABG pH POC ABG pCO2 POC ABG pO2 ABG pO2 ABG HCO3 ABG O2 Saturation ABG Base Excess ABG Hemoglobin ABG Oxyhemoglobin ABG Sodium ABG Potassium ABG Chloride ABG Glucose Oxyhemoglobin Sodium Potassium Chloride Carbon Dioxide BUN Creatinine Glucose POC Glucose 212 H 157 H 204 H Hemoglobin A1c Lactic Acid Calcium Ferritin Total Bilirubin AST ALT Alkaline Phosphatase Lactate Dehydrogenase C-Reactive Protein Total Protein Albumin Triglycerides Arterial Blood Glucose Arterial Blood Ionized Calcium Ur Specific [place] Vancomycin Trough Coronavirus (PCR) 12/06/20 12/06/20 12/06/20 04:31 04:31 05:12 WBC 17.0 H RBC 3.63 L Hgb 10.8 L D Hct 32.6 L D Plt Count Lymph % (Auto) [place] % (Auto) Lymph # (Auto) [place] # (Auto) Baso # (Auto) Seg Neutrophils % Seg Neuts % (Manual) Lymphocytes % (Manual) Seg Neutrophils # Seg Neutrophils # Man Lymphocytes # (Manual) D-Dimer ABG pH POC ABG pCO2 85.9 H POC ABG pO2 57.6 L ABG pO2 ABG HCO3 ABG O2 Saturation ABG Base Excess ABG Hemoglobin ABG Oxyhemoglobin ABG Sodium 131.2 L ABG Potassium 4.8 H ABG Chloride 86.0 L ABG Glucose 200 H Oxyhemoglobin Sodium 134 L Potassium 5.1 H Chloride 88.4 L Carbon Dioxide 47 H* BUN 23 H Creatinine 0.3 L Glucose 206 H POC Glucose Hemoglobin A1c Lactic Acid Calcium 8.3 L Ferritin Total Bilirubin AST 48 H ALT 91 H Alkaline Phosphatase 140 H Lactate Dehydrogenase C-Reactive Protein Total Protein 5.7 L Albumin 2.6 L Triglycerides Arterial Blood Glucose 200 H Arterial Blood Ionized Calcium 4.4 L Ur Specific [place] Vancomycin Trough Coronavirus (PCR) 12/06/20 12/06/20 12/06/20 05:24 12:18 16:45 WBC RBC Hgb Hct Plt Count Lymph % (Auto) [place] % (Auto) Lymph # (Auto) [place] # (Auto) Baso # (Auto) Seg Neutrophils % Seg Neuts % (Manual) Lymphocytes % (Manual) Seg Neutrophils # Seg Neutrophils # Man Lymphocytes # (Manual) D-Dimer ABG pH POC ABG pCO2 POC ABG pO2 ABG pO2 ABG HCO3 ABG O2 Saturation ABG Base Excess ABG Hemoglobin ABG Oxyhemoglobin ABG Sodium ABG Potassium ABG Chloride ABG Glucose Oxyhemoglobin Sodium Potassium Chloride Carbon Dioxide BUN Creatinine Glucose POC Glucose 186 H 187 H 150 H Hemoglobin A1c Lactic Acid Calcium Ferritin Total Bilirubin AST ALT Alkaline Phosphatase Lactate Dehydrogenase C-Reactive Protein Total Protein Albumin Triglycerides Arterial Blood Glucose Arterial Blood Ionized Calcium Ur Specific [place] Vancomycin Trough Coronavirus (PCR) 12/06/20 12/07/20 12/07/20 23:43 05:20 05:21 WBC RBC Hgb Hct Plt Count Lymph % (Auto) [place] % (Auto) Lymph # (Auto) [place] # (Auto) Baso # (Auto) Seg Neutrophils % Seg Neuts % (Manual) Lymphocytes % (Manual) Seg Neutrophils # Seg Neutrophils # Man Lymphocytes # (Manual) D-Dimer ABG pH POC ABG pCO2 POC ABG pO2 ABG pO2 48.4 L ABG HCO3 50.8 H ABG O2 Saturation 86.2 L ABG Base Excess 22.4 H ABG Hemoglobin 11.0 L ABG Oxyhemoglobin ABG Sodium ABG Potassium ABG Chloride ABG Glucose Oxyhemoglobin 84.0 L Sodium Potassium Chloride Carbon Dioxide BUN Creatinine Glucose POC Glucose 153 H 107 H Hemoglobin A1c Lactic Acid Calcium Ferritin Total Bilirubin AST ALT Alkaline Phosphatase Lactate Dehydrogenase C-Reactive Protein Total Protein Albumin Triglycerides Arterial Blood Glucose Arterial Blood Ionized Calcium Ur Specific [place] Vancomycin Trough Coronavirus (PCR) 12/07/20 12/07/20 12/07/20 13:20 14:28 17:35 WBC RBC Hgb Hct Plt Count Lymph % (Auto) [place] % (Auto) Lymph # (Auto) [place] # (Auto) Baso # (Auto) Seg Neutrophils % Seg Neuts % (Manual) Lymphocytes % (Manual) Seg Neutrophils # Seg Neutrophils # Man Lymphocytes # (Manual) D-Dimer ABG pH POC ABG pCO2 74.1 H POC ABG pO2 68.5 L ABG pO2 ABG HCO3 ABG O2 Saturation ABG Base Excess ABG Hemoglobin 10.7 L ABG Oxyhemoglobin 91.9 L ABG Sodium 132.2 L ABG Potassium 4.7 H ABG Chloride 88.0 L ABG Glucose 138 H Oxyhemoglobin Sodium 134 L Potassium Chloride 87.4 L Carbon Dioxide 49 H* BUN Creatinine 0.2 L Glucose 132 H POC Glucose 176 H Hemoglobin A1c Lactic Acid Calcium 7.7 L Ferritin Total Bilirubin AST ALT Alkaline Phosphatase Lactate Dehydrogenase C-Reactive Protein Total Protein Albumin Triglycerides Arterial Blood Glucose 138 H Arterial Blood Ionized Calcium 4.0 L Ur Specific [place] Vancomycin Trough Coronavirus (PCR) 12/07/20 12/08/20 12/08/20 23:44 04:12 05:29 WBC RBC Hgb Hct Plt Count Lymph % (Auto) [place] % (Auto) Lymph # (Auto) [place] # (Auto) Baso # (Auto) Seg Neutrophils % Seg Neuts % (Manual) Lymphocytes % (Manual) Seg Neutrophils # Seg Neutrophils # Man Lymphocytes # (Manual) D-Dimer ABG pH POC ABG pCO2 POC ABG pO2 ABG pO2 69.7 L ABG HCO3 50.1 H ABG O2 Saturation ABG Base Excess 21.6 H ABG Hemoglobin 10.9 L ABG Oxyhemoglobin ABG Sodium ABG Potassium ABG Chloride ABG Glucose Oxyhemoglobin 93.2 L Sodium Potassium Chloride Carbon Dioxide BUN Creatinine Glucose POC Glucose 143 H 143 H Hemoglobin A1c Lactic Acid Calcium Ferritin Total Bilirubin AST ALT Alkaline Phosphatase Lactate Dehydrogenase C-Reactive Protein Total Protein Albumin Triglycerides Arterial Blood Glucose Arterial Blood Ionized Calcium Ur Specific [place] Vancomycin Trough Coronavirus (PCR) 12/08/20 12/08/20 06:10 06:10 WBC 12.0 H RBC 3.18 L Hgb 9.5 L Hct 28.9 L Plt Count Lymph % (Auto) [place] % (Auto) Lymph # (Auto) [place] # (Auto) Baso # (Auto) Seg Neutrophils % Seg Neuts % (Manual) 95.0 H Lymphocytes % (Manual) 3.0 L Seg Neutrophils # Seg Neutrophils # Man 11.4 H Lymphocytes # (Manual) 0.4 L D-Dimer ABG pH POC ABG pCO2 POC ABG pO2 ABG pO2 ABG HCO3 ABG O2 Saturation ABG Base Excess ABG Hemoglobin ABG Oxyhemoglobin ABG Sodium ABG Potassium ABG Chloride ABG Glucose Oxyhemoglobin Sodium 133 L Potassium Chloride 86.3 L Carbon Dioxide 53 H* BUN Creatinine 0.2 L Glucose 156 H POC Glucose Hemoglobin A1c Lactic Acid Calcium 7.6 L Ferritin Total Bilirubin AST ALT Alkaline Phosphatase Lactate Dehydrogenase C-Reactive Protein Total Protein Albumin Triglycerides Arterial Blood Glucose Arterial Blood Ionized Calcium Ur Specific [place] Vancomycin Trough Coronavirus (PCR)
[2020-12-08] MEDS: ACETAMINOPHEN 325 MG TAB PO PRN (13:40)
[2020-12-08] MEDS: MIDAZOLAM 100 MG in SODIUM CHLORIDE 0.9% 80 ML IV SCH (13:51)
[2020-12-08] MEDS: methylPREDNISolone Sod Succinate 40 MG/1 ML INJ IV SCH ×2 (15:38→21:17)
--- NOTE | 2020-12-08 16:18 | Progress Note ---
Assessment and Plan Cultures: SARS CoV-2 PCR: positive Blood culture: No growth 11/21/2020 tracheal aspirate culture: MRSA A/P: 59-year-old male: #Bilateral pneumonia: secondary to COVID-19. Admission labs showed leukocytosis, D-dimer greater than 10,000, ferritin 672, CRP 19.8, LDH 663, creatinine 0.6, procalcitonin 0.51. Completed 5 days of abx, remdesivir. #MRSA on ET aspirate culture, ?colonization v/s true disease, difficult to differentiate. S/P abx. #Right-sided pneumothorax and pneumomediastinum: Underwent placement of right- sided chest tube, likely secondary to COVID-19. #Acute hypoxic respiratory failure: Failed BiPAP. Remains on the vent. #Elevated d-dimer: DVT scan negative. Unable to get CTA Chest due to patients unstable clinical status #Transaminitis: secondary to COVID-19. Recs: -leucocytosis is probably from steroids (solumedrol) -continue off antibiotics at this time -Continue prophylactic anticoagulation based on d-dimer per hospital protocol -guarded prognosis Rm Carrillo MD [facility] ([facility] O: [phone] F: [phone] Subjective Date of service: 12/08/20 Principal diagnosis: COVID-19 Interval history: Afebrile, white count 12. Objective - Exam Narrative Exam: Physical exam deferred due to PPE conservation strategy. Please refer to primary team's note. - Constitutional Vitals: Vital Signs Temp Pulse Resp BP Pulse Ox 98.4 F 105 H 30 H 114/65 93 12/08/20 16:00 12/08/20 16:16 12/08/20 13:00 12/08/20 16:16 12/08/20 16:16 Temperature -Last 24 Hours Temperature 98.4 F Temperature 98.3 F Temperature 98.5 F Temperature 98.3 F Temperature 98.2 F Temperature 98.8 F Temperature 98.3 F - Labs CBC & Chem 7: 12/08/20 06:10 12/08/20 06:10 Labs: Abnormal lab results 12/07/20 12/07/20 12/07/20 Range/Units 14:28 17:35 23:44 WBC (4.5-11.0) K/mm3 RBC (3.65-5.03) M/mm3 Hgb (11.8-15.2) gm/dl Hct (35.5-45.6) % Seg Neuts % (Manual) (40.0-70.0) % Lymphocytes % (Manual) (13.4-35.0) % Seg Neutrophils # Man (1.8-7.7) K/mm3 Lymphocytes # (Manual) (1.2-5.4) K/mm3 POC ABG pCO2 74.1 H (32.0-48.0) mmHg POC ABG pO2 68.5 L (83-108) mmHg ABG pO2 (80.0-90.0) mm Hg ABG HCO3 (20.0-26.0) mmol/L ABG Base Excess (-2.0-3.0) mmol/L ABG Hemoglobin 10.7 L (12.0-17.5) ABG Oxyhemoglobin 91.9 L (94-98) ABG Sodium 132.2 L (136.0-145.0) mmol/L ABG Potassium 4.7 H (3.40-4.50) mmol/L ABG Chloride 88.0 L (98-107) mmol/L ABG Glucose 138 H (65-95) mg/dL Oxyhemoglobin (95.0-99.0) % Sodium (137-145) mmol/L Chloride (98-107) mmol/L Carbon Dioxide (22-30) mmol/L Creatinine (0.8-1.3) mg/dL Glucose (75-100) mg/dL POC Glucose 176 H 143 H (70-105) mg/dL Calcium (8.4-10.2) mg/dL Arterial Blood Glucose 138 H (65-95) mg/dL Arterial Blood Ionized Calcium 4.0 L (4.6-5.3) mg/dL 12/08/20 12/08/20 12/08/20 Range/Units 04:12 05:29 06:10 WBC (4.5-11.0) K/mm3 RBC (3.65-5.03) M/mm3 Hgb (11.8-15.2) gm/dl Hct (35.5-45.6) % Seg Neuts % (Manual) (40.0-70.0) % Lymphocytes % (Manual) (13.4-35.0) % Seg Neutrophils # Man (1.8-7.7) K/mm3 Lymphocytes # (Manual) (1.2-5.4) K/mm3 POC ABG pCO2 (32.0-48.0) mmHg POC ABG pO2 (83-108) mmHg ABG pO2 69.7 L (80.0-90.0) mm Hg ABG HCO3 50.1 H (20.0-26.0) mmol/L ABG Base Excess 21.6 H (-2.0-3.0) mmol/L ABG Hemoglobin 10.9 L (12.0-17.5) ABG Oxyhemoglobin (94-98) ABG Sodium (136.0-145.0) mmol/L ABG Potassium (3.40-4.50) mmol/L ABG Chloride (98-107) mmol/L ABG Glucose (65-95) mg/dL Oxyhemoglobin 93.2 L (95.0-99.0) % Sodium 133 L (137-145) mmol/L Chloride 86.3 L (98-107) mmol/L Carbon Dioxide 53 H* (22-30) mmol/L Creatinine 0.2 L (0.8-1.3) mg/dL Glucose 156 H (75-100) mg/dL POC Glucose 143 H (70-105) mg/dL Calcium 7.6 L (8.4-10.2) mg/dL Arterial Blood Glucose (65-95) mg/dL Arterial Blood Ionized Calcium (4.6-5.3) mg/dL 12/08/20 Range/Units 06:10 WBC 12.0 H (4.5-11.0) K/mm3 RBC 3.18 L (3.65-5.03) M/mm3 Hgb 9.5 L (11.8-15.2) gm/dl Hct 28.9 L (35.5-45.6) % Seg Neuts % (Manual) 95.0 H (40.0-70.0) % Lymphocytes % (Manual) 3.0 L (13.4-35.0) % Seg Neutrophils # Man 11.4 H (1.8-7.7) K/mm3 Lymphocytes # (Manual) 0.4 L (1.2-5.4) K/mm3 POC ABG pCO2 (32.0-48.0) mmHg POC ABG pO2 (83-108) mmHg ABG pO2 (80.0-90.0) mm Hg ABG HCO3 (20.0-26.0) mmol/L ABG Base Excess (-2.0-3.0) mmol/L ABG Hemoglobin (12.0-17.5) ABG Oxyhemoglobin (94-98) ABG Sodium (136.0-145.0) mmol/L ABG Potassium (3.40-4.50) mmol/L ABG Chloride (98-107) mmol/L ABG Glucose (65-95) mg/dL Oxyhemoglobin (95.0-99.0) % Sodium (137-145) mmol/L Chloride (98-107) mmol/L Carbon Dioxide (22-30) mmol/L Creatinine (0.8-1.3) mg/dL Glucose (75-100) mg/dL POC Glucose (70-105) mg/dL Calcium (8.4-10.2) mg/dL Arterial Blood Glucose (65-95) mg/dL Arterial Blood Ionized Calcium (4.6-5.3) mg/dL
[2020-12-08] MEDS: ENOXAPARIN 40 MG/0.4 ML INJ SUB-Q SCH (21:17)
[2020-12-09] MEDS: INSULIN LISPRO 100 UNIT/ML SUB-Q SCH ×4 (00:12→18:44)
[2020-12-09] MEDS: ACETAMINOPHEN 325 MG TAB PO PRN (00:14)
[2020-12-09] MEDS: fentaNYL DRIP Premix 2,000 MCG/100 ML BAG IV SCH ×3 (04:16→23:44)
[2020-12-09 06:50] LABS: Hematocrit 29.9 % (35.5-45.6); Hemoglobin 9.7 gm/dl (11.8-15.2); Mean Corpuscular HGB Conc 32 % (32-34); Mean Corpuscular Volume 91 fl (84-94); Platelet Count 165 K/mm3 (140-440); Red Blood Count 3.28 M/mm3 (3.65-5.03); Red Cell Distribution Width 14.8 % (13.2-15.2)
[2020-12-09 07:04] LABS: Blood Urea Nitrogen 14 mg/dL (9-20); Calcium 7.6 mg/dL (8.4-10.2); Hemolysis Index 0
[2020-12-09 07:13] LABS: BUN/Creatinine Ratio 47
[2020-12-09] MEDS: INSULIN GLARGINE 100 UNITS/ML SUB-Q SCH ×2 (08:06→21:24)
--- NOTE | 2020-12-09 09:40 | Progress Note ---
Assessment and Plan Assessment and plan: COVID-19 test positive; 11/16/2020 --Acute hypoxic hypercapnic respiratory failure ; requiring intubation and mechanical ventilation Continue ventilatory support, pulmonary critical following Wean as tolerated and extubate, nebulizers IV steroids ID and pulmonary critical following Home oxygen evaluation when patient is stable --Bilateral pneumothorax; status post bilateral chest tube placement Mild improvement, chest tubes in place ,continue supportive care, surgery pulmonary following --Pneumomediastinum, subcutaneous emphysema, Continue supportive care, surgery following --Leukocytosis --Bilateral Covid pneumonia Management per protocols ID pulmonary following --Type II Diabetes Mellitus Accu-Chek sliding scale coverage ADA diet Long-acting insulin as needed --Sepsis secondary to MRSA pneumonia Continue vancomycin Follow cultures 12/05: Patient continues on full ventilatory support per rd scientist PEEP remains at 18. Still with hypercapnic respiratory failure. FiO2 down to 60% this morning. Chest tube to suction still weaning off steroids in the deliberation ongoing for possible a third chest tube as last documentation by surgery shows no plan for it at this time. Continue to manage insulin for better blood sugar control. 12/06:weaned down to 60%, continue supportive care, unable to wean, 12/07; patient remains intubated on ventilatory support, chest tubes in place trach and PEG when patient's Covid test is negative,Per surgery. 12/08; Patient remains intubated remains with hypercapnia and hypoxia. Chest tube still remain in place. He is off antibiotics at this time. Continue steroids which is likely resultant to the leukocytosis. Sales Rep and surgeon following ID input is noted. Prognosis remains guarded to poor Patient is critically ill with very poor prognosis, awaiting trach and PEG when COVID-19 test turns negative Plan discussed with nursing staff. Sales Rep have discussed with the patient's brother. No new updates at this time. The high probability of a clinically significant, sudden or life threatening deterioration of the [pulmonary] system(s) required my full and direct attention, intervention and personal management. The aggregate critical care time was [32] minutes. This time is in addition to time spent performing reported procedures but includes the following: [X] Data Review and interpretation [X] Patient assessment and monitoring of vital signs [X] Documentation [X] Medication orders and management Plan of care reviewed with the patient's nurse and the case management History Interval history: I have seen and examined the patient at the bedside Patient's chart and medications reviewed Strict isolation and PPE protocols followed per COVID-19 guidelines Patient remains intubated on ventilatory support Noncommunicative Vital signs noted Hospitalist Physical - Constitutional Vitals: Temp Pulse Resp BP Pulse Ox 98.6 F 93 H 30 H 95/47 91 12/09/20 08:00 12/09/20 08:45 12/09/20 06:30 12/09/20 08:45 12/09/20 08:45 General appearance: Present: mild distress, well-nourished, obese - EENT Eyes: Present: PERRL, EOM intact - Neck Neck: Present: supple, normal ROM - Respiratory Respiratory effort: normal Respiratory: bilateral: diminished, rhonchi, negative: rales, wheezing - Cardiovascular Rhythm: regular Heart Sounds: Present: S1 & S2 - Extremities Extremities: no ischemia, No edema - Abdominal General gastrointestinal: soft, non-tender, non-distended, normal bowel sounds - Integumentary Integumentary: Present: clear, warm - Psychiatric Psychiatric: appropriate mood/affect, cooperative - Neurologic Neurologic: CNII-XII intact, moves all extremities HEART Score - HEART Score Troponin: Troponin T < 0.010 ng/mL (0.00-0.029) 11/22/20 Unknown Results - Labs CBC & Chem 7: 12/09/20 06:40 12/09/20 06:40 Labs: Laboratory Last Values WBC 13.5 K/mm3 (4.5-11.0) H 12/09/20 06:40 RBC 3.28 M/mm3 (3.65-5.03) L 12/09/20 06:40 Hgb 9.7 gm/dl (11.8-15.2) L 12/09/20 06:40 Hct 29.9 % (35.5-45.6) L 12/09/20 06:40 MCV 91 fl (84-94) 12/09/20 06:40 MCH 30 pg (28-32) 12/09/20 06:40 MCHC 32 % (32-34) 12/09/20 06:40 RDW 14.8 % (13.2-15.2) 12/09/20 06:40 Plt Count 165 K/mm3 (140-440) 12/09/20 06:40 Lymph % (Auto) 2.0 % (13.4-35.0) L 11/27/20 06:25 [place] % (Auto) 5.2 % (0.0-7.3) 11/27/20 06:25 Eos % (Auto) 0.0 % (0.0-4.3) 11/27/20 06:25 Baso % (Auto) 0.1 % (0.0-1.8) 11/27/20 06:25 Lymph # (Auto) 0.3 K/mm3 (1.2-5.4) L 11/27/20 06:25 [place] # (Auto) 0.7 K/mm3 (0.0-0.8) 11/27/20 06:25 Eos # (Auto) 0.0 K/mm3 (0.0-0.4) 11/27/20 06:25 Baso # (Auto) 0.0 K/mm3 (0.0-0.1) 11/27/20 06:25 Add Manual Diff Complete 12/08/20 06:10 Total Counted 100 12/08/20 06:10 Seg Neutrophils % Soft Work Wrapper Layer And Examiner 12/08/20 06:10 Seg Neuts % (Manual) 95.0 % (40.0-70.0) H 12/08/20 06:10 Band Neutrophils % 2.0 % 12/02/20 02:14 Lymphocytes % (Manual) 3.0 % (13.4-35.0) L 12/08/20 06:10 Monocytes % (Manual) 2.0 % (0.0-7.3) 12/08/20 06:10 Nucleated RBC % Not Reportable 12/08/20 06:10 Seg Neutrophils # 12.7 K/mm3 (1.8-7.7) H 11/27/20 06:25 Seg Neutrophils # Man 11.4 K/mm3 (1.8-7.7) H 12/08/20 06:10 Band Neutrophils # 0.0 K/mm3 12/08/20 06:10 Lymphocytes # (Manual) 0.4 K/mm3 (1.2-5.4) L 12/08/20 06:10 Abs React Lymphs (Man) 0.0 K/mm3 12/08/20 06:10 Monocytes # (Manual) 0.2 K/mm3 (0.0-0.8) 12/08/20 06:10 Eosinophils # (Manual) 0.0 K/mm3 (0.0-0.4) 12/08/20 06:10 Basophils # (Manual) 0.0 K/mm3 (0.0-0.1) 12/08/20 06:10 Metamyelocytes # 0.0 K/mm3 12/08/20 06:10 Myelocytes # 0.0 K/mm3 12/08/20 06:10 Promyelocytes # 0.0 K/mm3 12/08/20 06:10 Blast Cells # 0.0 K/mm3 12/08/20 06:10 WBC Morphology Not Reportable 12/08/20 06:10 Hypersegmented Neuts Not Reportable 12/08/20 06:10 Hyposegmented Neuts Not Reportable 12/08/20 06:10 Hypogranular Neuts Not Reportable 12/08/20 06:10 Smudge Cells Not Reportable 12/08/20 06:10 Toxic Granulation Not Reportable 12/08/20 06:10 Toxic Vacuolation Not Reportable 12/08/20 06:10 Dohle Bodies Not Reportable 12/08/20 06:10 Pelger-Huet Anomaly Not Reportable 12/08/20 06:10 Tony Rods Not Reportable 12/08/20 06:10 Platelet Estimate Consistent w auto 12/08/20 06:10 Clumped Platelets Not Reportable 12/08/20 06:10 Plt Clumps, EDTA Not Reportable 12/08/20 06:10 Large Platelets Not Reportable 12/08/20 06:10 Giant Platelets Not Reportable 12/08/20 06:10 Platelet Satelliting Not Reportable 12/08/20 06:10 Plt Morphology Comment Not Reportable 12/08/20 06:10 RBC Morphology Not Reportable 12/08/20 06:10 Dimorphic RBCs Not Reportable 12/08/20 06:10 Polychromasia Not Reportable 12/08/20 06:10 Hypochromasia 1+ 12/08/20 06:10 Poikilocytosis Not Reportable 12/08/20 06:10 Anisocytosis Not Reportable 12/08/20 06:10 Microcytosis Not Reportable 12/08/20 06:10 Macrocytosis Not Reportable 12/08/20 06:10 Spherocytes Not Reportable 12/08/20 06:10 Pappenheimer Bodies Not Reportable 12/08/20 06:10 Sickle Cells Not Reportable 12/08/20 06:10 Target Cells Not Reportable 12/08/20 06:10 Tear Drop Cells Not Reportable 12/08/20 06:10 Ovalocytes Not Reportable 12/08/20 06:10 Stomatocytes 1+ 12/03/20 04:35 Helmet Cells Not Reportable 12/08/20 06:10 Cabrera-Bloxom Bodies Not Reportable 12/08/20 06:10 [place] Rings Not Reportable 12/08/20 06:10 [place] Cells Not Reportable 12/08/20 06:10 Bite Cells Not Reportable 12/08/20 06:10 Crenated Cell Not Reportable 12/08/20 06:10 Elliptocytes Not Reportable 12/08/20 06:10 Acanthocytes (Spur) Not Reportable 12/08/20 06:10 Rouleaux Not Reportable 12/08/20 06:10 Hemoglobin C Crystals Not Reportable 12/08/20 06:10 Schistocytes Not Reportable 12/08/20 06:10 Malaria parasites Not Reportable 12/08/20 06:10 Yovani Bodies Not Reportable 12/08/20 06:10 Hem Pathologist Commnt No 12/08/20 06:10 D-Dimer 926.11 ng/mlDDU (0-234) H 11/26/20 06:04 ABG pH 7.410 (7.320-7.450) 12/09/20 04:24 POC ABG pCO2 76.2 mmHg (32.0-48.0) H 12/09/20 04:24 ABG pCO2 81.3 mm Hg 12/08/20 04:12 POC ABG pO2 52.8 mmHg (83-108) L 12/09/20 04:24 ABG pO2 69.7 mm Hg (80.0-90.0) L 12/08/20 04:12 POC ABG HCO3 47.2 12/09/20 04:24 ABG HCO3 50.1 mmol/L (20.0-26.0) H 12/08/20 04:12 ABG O2 Saturation 95.4 % (95.0-99.0) 12/08/20 04:12 ABG O2 Content 13.0 (0.0-44) 12/07/20 05:20 POC ABG Base Excess 18.9 12/09/20 04:24 ABG Base Excess 21.6 mmol/L (-2.0-3.0) H 12/08/20 04:12 ABG Hemoglobin 11.7 (12.0-17.5) L 12/09/20 04:24 ABG Oxyhemoglobin 91.9 (94-98) L 12/07/20 14:28 ABG Carboxyhemoglobin 2.0 % (0.0-5.0) 12/08/20 04:12 ABG Methemoglobin 0.4 % (0.0-1.5) 12/08/20 04:12 ABG Sodium 132.0 mmol/L (136.0-145.0) L 12/09/20 04:24 ABG Potassium 4.2 mmol/L (3.40-4.50) 12/09/20 04:24 ABG Chloride 87.0 mmol/L (98-107) L 12/09/20 04:24 ABG Glucose 118 mg/dL (65-95) H 12/09/20 04:24 Oxyhemoglobin 93.2 % (95.0-99.0) L 12/08/20 04:12 Carboxyhemoglobin 1.4 (0.5-1.5) 12/07/20 14:28 FiO2 70 12/09/20 04:24 Sodium 135 mmol/L (137-145) L 12/09/20 06:40 Potassium 4.3 mmol/L (3.6-5.0) 12/09/20 06:40 Chloride 89.5 mmol/L (98-107) L 12/09/20 06:40 Carbon Dioxide 52 mmol/L (22-30) H* 12/09/20 06:40 Anion Gap -2 mmol/L 12/09/20 06:40 BUN 14 mg/dL (9-20) 12/09/20 06:40 Creatinine 0.3 mg/dL (0.8-1.3) L 12/09/20 06:40 Estimated GFR > 60 ml/min 12/09/20 06:40 BUN/Creatinine Ratio 47 % 12/09/20 06:40 Glucose 114 mg/dL (75-100) H 12/09/20 06:40 POC Glucose 117 mg/dL (70-105) H 12/09/20 05:44 Hemoglobin A1c 11.7 % (4-6) H 11/16/20 05:29 Lactic Acid 2.60 mmol/L (0.7-2.0) H* 11/16/20 05:29 Calcium 7.6 mg/dL (8.4-10.2) L 12/09/20 06:40 Phosphorus 2.90 mg/dL (2.5-4.5) 12/04/20 Unknown Magnesium 1.90 mg/dL (1.7-2.3) 12/04/20 Unknown Ferritin 778.8 ng/mL (30.0-300.0) H 11/26/20 04:00 Total Bilirubin 0.30 mg/dL (0.1-1.2) 12/06/20 04:31 AST 48 units/L (5-40) H 12/06/20 04:31 ALT 91 units/L (7-56) H 12/06/20 04:31 Alkaline Phosphatase 140 units/L (35-129) H 12/06/20 04:31 Lactate Dehydrogenase 288 units/L (91-180) H 11/26/20 04:00 Troponin T < 0.010 ng/mL (0.00-0.029) 11/22/20 Unknown C-Reactive Protein 1.40 mg/dL (0.00-1.30) H 11/26/20 04:00 NT-Pro-B Natriuret Pep 107.2 pg/mL (0-900) 11/17/20 10:21 Total Protein 5.7 g/dL (6.3-8.2) L 12/06/20 04:31 Albumin 2.6 g/dL (3.9-5) L 12/06/20 04:31 Albumin/Globulin Ratio 0.8 % 12/06/20 04:31 Triglycerides 109 mg/dL (2-149) 12/08/20 06:10 Procalcitonin 0.51 ng/mL (<0.15) 11/15/20 10:39 Arterial Blood Glucose 118 mg/dL (65-95) H 12/09/20 04:24 Arterial Blood Ionized Calcium 4.2 mg/dL (4.6-5.3) L 12/09/20 04:24 Urine Color [place] (Yellow) 11/16/20 01:45 Urine Turbidity Slightly-cloudy (Clear) 11/16/20 01:45 Urine pH 6.0 (5.0-7.0) 11/16/20 01:45 Ur Specific [place] 1.037 (1.003-1.030) H 11/16/20 01:45 Urine Protein 30 mg/dl mg/dL (Negative) 11/16/20 01:45 Urine Glucose (UA) >=500 mg/dL (Negative) 11/16/20 01:45 Urine Ketones 20 mg/dL (Negative) 11/16/20 01:45 Urine Blood Neg (Negative) 11/16/20 01:45 Urine Nitrite Neg (Negative) 11/16/20 01:45 Urine Bilirubin Neg (Negative) 11/16/20 01:45 Urine Urobilinogen 2.0 mg/dL (<2.0) 11/16/20 01:45 Ur Leukocyte Esterase Neg (Negative) 11/16/20 01:45 Urine WBC (Auto) 2.0 /HPF (0.0-6.0) 11/16/20 01:45 Urine RBC (Auto) 1.0 /HPF (0.0-6.0) 11/16/20 01:45 Urine Bacteria (Auto) 1+ /HPF (Negative) 11/16/20 01:45 Urine Mucus 3+ /HPF 11/16/20 01:45 Vancomycin Trough 4.0 ug/mL (5.0-20.0) L 11/29/20 15:40 Coronavirus (PCR) Positive (Negative) A 11/16/20 Unknown - Diagnostic Impressions Diagnostic Impressions: Echocardiogram 11/16/20 10:34 Transthoracic Echocardiogram Indication: Shortness of breath-COVID BP: 108/77 HR: 92 Conclusions *Global left ventricular systolic function is normal. *The estimated ejection fraction is 60-65%. *Mild to moderate concentric left ventricular hypertrophy is observed. *There is trace of mitral regurgitation. *There is mild to moderate tricuspid regurgitation. *There is evidence of mild pulmonary hypertension. *The right ventricular systolic pressure is calculated at 31 mmHg. Findings Left Ventricle: The left ventricular chamber size is normal. Mild to moderate concentric left ventricular hypertrophy is observed. Global left ventricular systolic function is normal. The estimated ejection fraction is 60-65%. Left Atrium: The left atrial chamber size is normal. Right Ventricle: The right ventricular cavity size is normal. The right ventricular global systolic function is normal. Right Atrium: The right atrial cavity size is normal. Aortic Valve: The aortic valve is trileaflet. There is no evidence of aortic regurgitation. There is no evidence of aortic stenosis. Mitral Valve: The mitral valve leaflets appear normal. There is trace of mitral regurgitation. There is no evidence of mitral stenosis. Tricuspid Valve: The tricuspid valve leaflets are normal. There is mild to moderate tricuspid regurgitation. The right ventricular systolic pressure is calculated at 31 mmHg. There is evidence of mild pulmonary hypertension. Pulmonic Valve: There is trace pulmonic regurgitation. Pericardium: There is no pericardial effusion. Aorta: There is no dilatation of the ascending aorta. There is no dilatation of the aortic root. Venous: The inferior vena cava appears normal in size. Measurements Chambers 2D Name Value Normal Range IVSd (2D) 0.81 cm (0.6 - 1.1) LVPWd (2D) 0.79 cm (0.6 - 1.1) LVIDd (2D) 4.22 cm (3.7 - 5.6) LVIDs (2D) 3.1 cm (2 - 3.8) LV FS (2D) 26.71 % - EF Teichholz (2D) 52.55 % - Ao root diameter (2D) 3.34 cm (2 - 3.7) Volumes/Mass Name Value Normal Range LA ESV SP 4CH (A/L) 10.87 ml - LA ESV SP 2CH (A/L) 18.74 ml - LA ESV BP (A/L) 16.38 ml - LA ESV BP (A/L) index 8.62 ml/m2 - LA ESV SP 4CH (MOD) 10.32 ml - LA ESV SP 2CH (MOD) 17.66 ml - LA ESV BP (MOD) 15.12 ml - LA ESV BP (MOD) index 7.96 ml/m2 - Diastolic/Systolic Function Name Value Normal Range MV E-wave Vmax 0.76 m/sec - MV deceleration time 133.63 msec - MV A-wave Vmax 1.1 m/sec - MV E:A ratio 0.69 ratio - Aortic Valve Name Value Normal Range AV Vmax 1.44 m/sec - AV VTI 22.94 cm - AV peak gradient 8.33 mmHg - AV mean gradient 4.73 mmHg - LVOT diameter 2.2 cm - LVOT Vmax 1.04 m/sec - LVOT VTI 18.88 cm - LVOT peak gradient 4.34 mmHg - LVOT mean gradient 2.31 mmHg - SV LVOT 72.05 ml - EVANGELISTA (continuity Vmax) 2.75 cm2 - EVANGELISTA (continuity VTI) 3.14 cm2 - Tricuspid Valve Name Value Normal Range TR Vmax 2.64 m/sec - TR peak gradient 28 mmHg - RAP 3 mmHg - RVSP 31 mmHg - Gupta/IV: Voiding Method Indwelling Catheter IV Catheter Type [Left Peripheral IV Antecubital] Active Medications - Current Medications Current Medications: Generic Name Dose Route Start Last Admin Trade Name Freq PRN Reason Stop Dose Admin Acetaminophen 650 mg 11/15/20 23:55 12/09/20 00:14 Acetaminophen 325 Mg Tab PO 650 mg Q4H PRN Administration Pain MILD(1-3)/Fever >100.5/BUTTS Lipase/Protease/Amylase 1 each 11/23/20 11:53 12/05/20 23:45 Lipase 10,500/Protease 25,000/Amylase 43,750 (Units) Dr Cap FEEDTUBE 1 each PRN PRN Administration For Clogged Feeding Tube Enoxaparin Sodium 40 mg 12/03/20 22:00 12/08/20 21:17 Enoxaparin 40 Mg/0.4 Ml Inj SUB-Q 40 mg QDAY@2200 RAEANN Administration Famotidine 20 mg 11/22/20 22:00 12/08/20 21:18 Famotidine 20 Mg/2 Ml Inj IV 20 mg BID RAEANN Administration Fentanyl 50 mcg 11/21/20 21:53 Fentanyl 100 Mcg/2 Ml Inj IV Q10MIN PRN ANALGESIA Hydrophilic Ointment 1 applic 11/21/20 21:53 11/30/20 21:33 Lip Therapy Vaseline TP 1 applic Q2HR PRN Administration Dry Lips Fentanyl Citrate 2,000 mcg in 100 mls @ 3.625 mls/hr 11/21/20 22:00 12/09/20 04:16 Fentanyl Drip Premix IV 4 mcg/kg/hr TITR RAEANN 14.5 mls/hr Administration Protocol 1 MCG/KG/HR Midazolam HCl 100 mg/ Sodium 100 mls @ 2 mls/hr 11/21/20 22:00 12/08/20 13:51 Chloride IV 5 mg/hr TITR RAEANN 5 mls/hr Administration Protocol 2 MG/HR Norepinephrine 4 mg in 250 mls @ 7.5 mls/hr 11/22/20 17:00 12/08/20 11:05 Levophed Drip 4 Mg/Ns 250 Ml IV 0 mcg/min TITR RAEANN 0 mls/hr Titration Protocol 2 MCG/MIN Propofol 1,000 mg in 100 mls @ 2.175 mls/hr 11/27/20 12:00 12/09/20 01:13 Diprivan 10 Mg/Ml IV 30 mcg/kg/min TITR RAEANN 13.05 mls/hr Administration Protocol 5 MCG/KG/MIN Insulin Glargine 30 units 12/02/20 09:00 12/09/20 08:06 Insulin Glargine 100 Units/Ml SUB-Q 30 units 0800,2200 [facility] Administration Insulin Human Lispro 0 unit 11/22/20 06:00 12/09/20 06:43 Insulin Lispro 100 Unit/Ml SUB-Q Not Given Q6HR [facility] Protocol Magnesium Citrate 300 ml 12/09/20 10:00 Magnesium Citrate 300 Ml Oral Liqd PO 12/09/20 10:01 ONCE ONE Methylprednisolone Sodium Succinate 20 mg 12/08/20 22:00 12/08/20 21:17 Methylprednisolone Sod Succinate 40 Mg/1 Ml Inj IV 20 mg Q12HR RAEANN Administration Metoclopramide HCl 10 mg 11/15/20 23:55 Metoclopramide 10 Mg/2 Ml Inj IV Q6H PRN Nausea And Vomiting Midazolam HCl 2 mg 11/21/20 21:53 12/03/20 20:13 Midazolam 2 Mg/2 Ml Inj IV 2 mg Q10MIN PRN Administration Sedation Multi-Ingred Cream/Lotion/Oil/Oint 1 applic 11/21/20 21:53 Mineral Oil/Petrolatum, White Ophth Oint 3.5 Gm OU Q4HR PRN Dry Eye(s) Ondansetron HCl 4 mg 11/15/20 23:55 Ondansetron 4 Mg/2 Ml Inj IV Q8H PRN Nausea And Vomiting Senna/Docusate Sodium 2 tab 12/03/20 13:00 12/08/20 21:18 Sennosides/Docusate Sodium 8.6/50 Mg Tab PO 2 tab BID RAEANN Administration Simple Syrup 15 ml 11/23/20 11:53 Simple Syrup 15 Ml FEEDTUBE PRN PRN Hypoglycemia Simple Syrup 30 ml 11/23/20 11:53 Simple Syrup 15 Ml FEEDTUBE PRN PRN Hypoglycemia Sodium Bicarbonate 325 mg 11/23/20 11:53 12/05/20 23:46 Sodium Bicarbonate 325 Mg Tab FEEDTUBE 325 mg PRN PRN Administration For Clogged Feeding Tube Sodium Chloride 10 ml 11/16/20 10:00 12/08/20 21:19 Sodium Chloride 0.9% 10 Ml Flush Syringe IV 10 ml BID RAEANN Administration Sodium Chloride 10 ml 11/15/20 23:55 12/03/20 00:21 Sodium Chloride 0.9% 10 Ml Flush Syringe IV 10 ml PRN PRN Administration LINE FLUSH Nutrition/Malnutrition Assess - Dietary Evaluation Nutrition/Malnutrition Findings: Nutrition Notes Start: 11/20/20 12:03 Freq: Status: Active Protocol: Document 12/03/20 12:41 AL (Rec: 12/03/20 13:01 AL [id number]) Co-Sign 12/03/20 12:41 MK Nutrition Notes Initial or Follow up Reassessment Current Diagnosis Diabetes,Sepsis,Respiratory Failure Other Pertinent Diagnosis Bilat pneu, COVID-19 (+) Current Diet Glucerna at 60 ml/hr Labs/Tests POC BG 211 BUN 25 Cr .3 Pertinent Medications Solumedrol Propofol 8.7 ml/hr Humalog Lantus Height 5 ft 6 in Weight 83.5 kg Usual Body Weight 80.5 kg [place] Body Weight (kg) 64.54 BMI 29.7 Weight Status Overweight Subjective/Other Information F/U for TF tolerance. Pt tolerating Glucerna at 60 ml/ hr. Pt w/o BM since 11/21. MD to start bowel regimen Percent of energy/protein needs met: 100%/100% Burn Absent Trauma Absent GI Symptoms Last BM Difficulty In Swallowing,Chewing Food Allergy No Current % PO Negligible Minimum of two criteria Yes Energy Intake (severe) < or equal to 50% Estimated Energy Requirement > or equal to 5 days Interpretation of Weight Loss (severe) >2% in 1 week Fluid Accumulation Moderate to Severe (severe) #3 Nutrition Diagnosis Inadequate oral intake Diagnosis Progress(for reassessment Continues documentation) #2 Nutrition Diagnosis Malnutrition Diagnosis Progress(for reassessment Continues documentation) #1 Nutrition Diagnosis Unintended weight loss Diagnosis Progress(for reassessment Continues documentation) Is patient on ventilator? Yes Is Patient Ambulatory and/or Out of Bed No REE-([place]-St. Jeor-confined to bed) 1921.872 Kcal/Kg value to use for calculation 21 Approximate Energy Requirements Using 1754 kcal/Kg Calculation Used for Recommendations Kcal/kg Additional Notes Protein: 87-145 g/day (1.2-2g/ kg) Fluid: 1ml/kcal or per MD Nutrition Intervention Change Diet Order: Continue TF Nutrition Support: Glucerna 1.2 at 60 ml/hr. Flush 100 ml q4h Kcal 1,728 Protein (gm) 86 Fluid (mL) 1,159 Goal #1 TF tolerance Goal #2 Meet at least 75% of energy and protein needs via TF Anticipated Discharge Needs: Unknown at this time Follow-Up By: 12/09/20 Additional Comments F/U for TF tolerance
[2020-12-09] MEDS ORDERED: MAGNESIUM CITRATE 300 ML ORAL LIQD PO ONE (10:00)
[2020-12-09] MEDS: SENNOSIDES/DOCUSATE SODIUM 8.6/50 MG TAB PO SCH ×2 (10:00→21:24)
[2020-12-09] MEDS: FAMOTIDINE 20 MG/2 ML INJ IV SCH ×2 (10:00→21:24)
[2020-12-09] MEDS: methylPREDNISolone Sod Succinate 40 MG/1 ML INJ IV SCH ×2 (10:00→21:25)
--- NOTE | 2020-12-09 13:45 | Progress Note ---
Assessment and Plan 59 y/o male with acute respiratory failure, abnormal CXR and abnormal lab studies. 12/09/20: Repeat ABG later today. Wean FiO2 for sats >88%. Repeat CXR as well. With BP dropping could be relative adrenal insufficiency, will watch for now, however if pressor requirement increases would consider stress dose steroids and maybe volume replacement. Follow up cultures. Guarded prognosis. 12/08/20: Increase TV to 425. Drop FiO2 to 65% and wean for sats >88%. COntinue chest tubes. Change steroids to 20q12. 12/07/20: CXR is stable, no indication for another chest tube at this time. Will repeat ABG in 1 hour post change to 70% and wean accordingly. Dropping steroids to 20q8. Guarded prognosis. Same weaning parameters apply today as of 12/04/20 12/04/20: Continue to wean steroids to off. Continue to wean FiO2 for sats >88% . Keep PEEP at current level, would not feel comfortable weaning PEEP until FiO2 at 35-40%. Continue chest tubes to suction. PaO2 of >55, pH of >7.2 and sats >88% are acceptable. : Dropped steroids down to 40q8 and will start to wean from there. Continue to slowly wean FiO2 first, keep PEEP at current level. Spoke with Kehinde, please see my event note, who is the biological brother. He had no questions but thanked us for our care. Prognosis remains very very guarded. PaO2 of 55 and pH of >7.2 and sats of >88% are all acceptable. 12/02/20: Wean FiO2 for sats >88% and PaO2 >55. Unable to prone currently secondary to bilateral chest tubes. COntinue high dose steroids. CM To figure out who is the immediate next of kin that can make decisions and then we will discuss the current clinical situation with them. 12/01/20: Continue PEEP and FiO2 elevated to keep sats >88% and PaO2 >55. Small lung volumes and high PEEP. very very guarded prognosis. 11/30/20: Worsening hypoxemia. Chest tubes stable. Likely just worsening disease. Unable to prone now. Increase PEEP to 18 and FiO2 back up to 100. Continue 3 sedatives for RASS of -2. Obtain 12 lead to look at T waves as K was only 4.6 on yesterday. Guarded, guarded prognosis 11/29/20: Second chest tube in on yesterday. CXR is stable. ABG unchanged. Will likely increase PEEP now that chest tubes are in. No further paralytics. Still making good urine. Prognosis remains guarded. Will check chemistry to assess Potassium levels given peaked t's seen on monitor. 11/28/20: Second chest tube today. Once chest tube in, will likely increase PEEP to 18 and repeat gas about 2 hours after this. Continue paralytic today. No proning now that patient will have bilateral chest tubes. VEry guarded prognosis. 11/27/20: Spoke with surgery who have agreed to evaluate and placed chest tube on either right or left side pending CXR reading. Will monitor for 36-48 hours and if no resolution, will need chest tube placed on opposite side as well. Once placed, will likely paralyze again but hold on proning for now. Guarded prognosis. 11/26/20: Paralytics are off. Continue current level of sedation. Will prone for 12 hours today and repeat ABG in the am. Continue lung protective strategy. Guarded prognosis. 11/25/20: Prone again to 16 hours, will prone at 12-12:30. Continue paralytics for 24 more hours. Discussed the idea of permissive hypercapnea again today and as long as pH is above 7.2 no changes should be made to TV and or RR without discussing with physician. Continue to monitor urine output, guarded prognosis. Hold on lasix therapy today. 11/24/20: Prone again today. Will try 48 hours of paralyzing the patient to see if this will help with oxygenation. Will speak with RT's about permissive hypercapnea and that pH's of 7.2 and greater are ok. Continue high doses steroids. Prognosis is still very very guarded. If not improvement with paralytics, will attempt transfer. 11/23/20: Prone again today for 12 hours. Continue High Dose steroids. Hold on lasix given marginal BP's. Prognosis is very very guarded to poor. Will continue all supportive measures. If not able to wean from 100%, will attempt transfer for ECMO. 11/20/20: WIll change to solumedrol 60q6 today. Hold on lasix today. Given his increasing oxygen requirement, will likely end up intubated. OVerall prognosis is very poor. 2/4/21: lasix 40mg IV x1 today. Will speak with ID but may consider increasing steroids to see if this will help with oxygenation. Continue Remdesivir. Prognosis remains guarded. 11/18/20: Continue bipap, goal is to attempt to prevent prolong intubation for as long as possible. Lasix again today. Steroids and Remdesivir. Guarded Prognosis. 11/17/20: Continue bipap therapy. Monitor mental state. High risk for Intubation. Continue BID anticoagulation. Prone if able. BNP was elevated but not grossly elevated. Will still give lasix with hopes of achieving net negative state. STeroids and remdesivir. Overall prognosis is guarded, extremely guarded. 1. Pulm- Agree with concern for covid. Agree with empiric abx but procal is o nly mildly elevated. Await cultures. Continue bipap therapy for now but will need to monitor closely. [facility] has ordered CTA, but I spoke with pharmacy and we will empirically treat with BID lovenox therapy. COntinue empiric steroid therapy for COVID until studies back. Not sure that he will be able to prone on bipap therapy. Monitor volume status and run as dry as possible. 2. Renal-normal function but all electrolytes abnormal. HYponatremia and Hypochloremia volume up vs volume down. Sent BNP. Would suggest obtaning echo as well. Not sure what to make of elevated lactate unless that is from increased work of breathing or damage to other tissue unknown. May need to check LFT's and Coags as well. 3. Guarded Prognosis. CCT 31 minutes. Subjective Date of service: 12/09/20 Principal diagnosis: COVID-19 Interval history: Hypotensive and febrile last night. Very low doses of levophed. Cultured this am but no CXR. Chest tubes remain intact. Swelling is better as the patient dumping large amounts of urine now. Objective Vital Signs - 12hr 12/09/20 12/09/20 12/09/20 02:00 02:30 03:00 Temperature Pulse Rate 109 H 96 H 95 H Pulse Rate [ From Monitor] Respiratory 30 H 30 H 30 H Rate Blood Pressure 74/38 87/46 104/57 O2 Sat by Pulse 93 94 95 Oximetry 12/09/20 12/09/20 12/09/20 03:30 03:52 04:00 Temperature 99.8 F H Pulse Rate 107 H 119 H Pulse Rate [ 119 H From Monitor] Respiratory 30 H 30 H Rate Blood Pressure 159/82 162/88 O2 Sat by Pulse 94 92 Oximetry 12/09/20 12/09/20 12/09/20 04:25 04:30 05:00 Temperature Pulse Rate 125 H 127 H 115 H Pulse Rate [ From Monitor] Respiratory 30 H 30 H Rate Blood Pressure 138/77 138/77 98/53 O2 Sat by Pulse 91 92 92 Oximetry 12/09/20 12/09/20 12/09/20 05:30 06:00 06:30 Temperature Pulse Rate 112 H 109 H 101 H Pulse Rate [ From Monitor] Respiratory 30 H 29 H 30 H Rate Blood Pressure 85/43 88/47 92/45 O2 Sat by Pulse 95 94 96 Oximetry 12/09/20 12/09/20 12/09/20 07:00 07:30 08:00 Temperature 98.6 F Pulse Rate 92 H 98 H 90 Pulse Rate [ 90 From Monitor] Respiratory 30 H 30 H 30 H Rate Blood Pressure 94/52 87/43 92/47 O2 Sat by Pulse 95 93 93 Oximetry 12/09/20 12/09/20 12/09/20 08:30 08:45 09:00 Temperature Pulse Rate 94 H 93 H 92 H Pulse Rate [ From Monitor] Respiratory 30 H 30 H Rate Blood Pressure 98/52 95/47 91/49 O2 Sat by Pulse 95 91 91 Oximetry 12/09/20 12/09/20 12/09/20 09:30 10:00 10:30 Temperature Pulse Rate 92 H 93 H 87 Pulse Rate [ From Monitor] Respiratory 30 H 30 H 30 H Rate Blood Pressure 95/48 81/45 83/45 O2 Sat by Pulse 96 94 97 Oximetry 12/09/20 12/09/20 12:00 13:10 Temperature 98.9 F Pulse Rate 87 Pulse Rate [ From Monitor] Respiratory Rate Blood Pressure 137/66 O2 Sat by Pulse 96 Oximetry Constitutional: other (on vent orally intubated) ENT: other (Now intubated) Ascultation: Bilateral: rales, rhonchi Percussion: Bilateral: not dull Cardiovascular: regular rate and rhythm Gastrointestinal: soft, non-tender Neurologic: other (on vent) CBC and BMP: 12/09/20 06:40 12/09/20 06:40 ABG, PT/INR, D-dimer: ABG ABG pH 7.410 (7.320-7.450) 12/09/20 04:24 POC ABG pCO2 76.2 mmHg (32.0-48.0) H 12/09/20 04:24 ABG pCO2 81.3 mm Hg 12/08/20 04:12 POC ABG pO2 52.8 mmHg (83-108) L 12/09/20 04:24 ABG pO2 69.7 mm Hg (80.0-90.0) L 12/08/20 04:12 POC ABG HCO3 47.2 12/09/20 04:24 ABG O2 Saturation 95.4 % (95.0-99.0) 12/08/20 04:12 PT/INR, D-dimer D-Dimer 926.11 ng/mlDDU (0-234) H 11/26/20 06:04 Abnormal lab findings: Abnormal Labs 11/15/20 11/15/20 11/15/20 10:39 10:39 10:39 WBC 14.3 H RBC 5.17 H Hgb Hct Plt Count Lymph % (Auto) 7.8 L Holt % (Auto) 7.6 H Lymph # (Auto) 1.1 L Holt # (Auto) 1.1 H Baso # (Auto) Seg Neutrophils % 83.3 H Seg Neuts % (Manual) Lymphocytes % (Manual) Seg Neutrophils # 11.9 H Seg Neutrophils # Man Lymphocytes # (Manual) D-Dimer ABG pH POC ABG pCO2 POC ABG pO2 ABG pO2 ABG HCO3 ABG O2 Saturation ABG Base Excess ABG Hemoglobin ABG Oxyhemoglobin ABG Sodium ABG Potassium ABG Chloride ABG Glucose Oxyhemoglobin Sodium 128 L Potassium Chloride 96.0 L Carbon Dioxide BUN Creatinine 0.7 L Glucose 238 H POC Glucose Hemoglobin A1c Lactic Acid 4.10 H* Calcium 7.0 L Ferritin Total Bilirubin 1.40 H AST 49 H ALT 70 H Alkaline Phosphatase Lactate Dehydrogenase 663 H C-Reactive Protein 19.80 H Total Protein Albumin 2.9 L Triglycerides Arterial Blood Glucose Arterial Blood Ionized Calcium Ur Specific [place] Vancomycin Trough Coronavirus (PCR) 11/15/20 11/15/20 11/15/20 10:39 10:39 11:20 WBC RBC Hgb Hct Plt Count Lymph % (Auto) Holt % (Auto) Lymph # (Auto) Holt # (Auto) Baso # (Auto) Seg Neutrophils % Seg Neuts % (Manual) Lymphocytes % (Manual) Seg Neutrophils # Seg Neutrophils # Man Lymphocytes # (Manual) D-Dimer > 16482 H ABG pH POC ABG pCO2 29.9 L POC ABG pO2 137.3 H ABG pO2 ABG HCO3 ABG O2 Saturation ABG Base Excess ABG Hemoglobin ABG Oxyhemoglobin ABG Sodium 126.5 L ABG Potassium ABG Chloride ABG Glucose 248 H Oxyhemoglobin Sodium Potassium Chloride Carbon Dioxide BUN Creatinine Glucose POC Glucose Hemoglobin A1c Lactic Acid Calcium Ferritin 672.8 H Total Bilirubin AST ALT Alkaline Phosphatase Lactate Dehydrogenase C-Reactive Protein Total Protein Albumin Triglycerides Arterial Blood Glucose 248 H Arterial Blood Ionized Calcium 4.1 L Ur Specific [place] Vancomycin Trough Coronavirus (PCR) 11/15/20 11/15/20 11/16/20 13:41 23:41 01:45 WBC RBC Hgb Hct Plt Count Lymph % (Auto) Holt % (Auto) Lymph # (Auto) Holt # (Auto) Baso # (Auto) Seg Neutrophils % Seg Neuts % (Manual) Lymphocytes % (Manual) Seg Neutrophils # Seg Neutrophils # Man Lymphocytes # (Manual) D-Dimer ABG pH POC ABG pCO2 POC ABG pO2 ABG pO2 ABG HCO3 ABG O2 Saturation ABG Base Excess ABG Hemoglobin ABG Oxyhemoglobin ABG Sodium ABG Potassium ABG Chloride ABG Glucose Oxyhemoglobin Sodium Potassium Chloride Carbon Dioxide BUN Creatinine Glucose POC Glucose 284 H Hemoglobin A1c Lactic Acid 2.30 H* Calcium Ferritin Total Bilirubin AST ALT Alkaline Phosphatase Lactate Dehydrogenase C-Reactive Protein Total Protein Albumin Triglycerides Arterial Blood Glucose Arterial Blood Ionized Calcium Ur Specific [place] 1.037 H Vancomycin Trough Coronavirus (PCR) 11/16/20 11/16/20 11/16/20 05:29 05:29 05:29 WBC 12.9 H RBC Hgb Hct Plt Count Lymph % (Auto) 4.5 L Holt % (Auto) Lymph # (Auto) 0.6 L [place] # (Auto) Baso # (Auto) 0.2 H Seg Neutrophils % 89.8 H Seg Neuts % (Manual) Lymphocytes % (Manual) Seg Neutrophils # 11.5 H Seg Neutrophils # Man Lymphocytes # (Manual) D-Dimer ABG pH POC ABG pCO2 POC ABG pO2 ABG pO2 ABG HCO3 ABG O2 Saturation ABG Base Excess ABG Hemoglobin ABG Oxyhemoglobin ABG Sodium ABG Potassium ABG Chloride ABG Glucose Oxyhemoglobin Sodium 131 L Potassium Chloride Carbon Dioxide 21 L BUN 23 H Creatinine 0.6 L Glucose 342 H POC Glucose Hemoglobin A1c Lactic Acid 2.60 H* Calcium 7.0 L Ferritin Total Bilirubin AST ALT Alkaline Phosphatase Lactate Dehydrogenase C-Reactive Protein Total Protein Albumin 2.4 L Triglycerides Arterial Blood Glucose Arterial Blood Ionized Calcium Ur Specific [place] Vancomycin Trough Coronavirus (PCR) 11/16/20 11/16/20 11/16/20 05:29 08:11 12:11 WBC RBC Hgb Hct Plt Count Lymph % (Auto) Holt % (Auto) Lymph # (Auto) Holt # (Auto) Baso # (Auto) Seg Neutrophils % Seg Neuts % (Manual) Lymphocytes % (Manual) Seg Neutrophils # Seg Neutrophils # Man Lymphocytes # (Manual) D-Dimer ABG pH POC ABG pCO2 POC ABG pO2 ABG pO2 ABG HCO3 ABG O2 Saturation ABG Base Excess ABG Hemoglobin ABG Oxyhemoglobin ABG Sodium ABG Potassium ABG Chloride ABG Glucose Oxyhemoglobin Sodium Potassium Chloride Carbon Dioxide BUN Creatinine Glucose POC Glucose 329 H 320 H Hemoglobin A1c 11.7 H Lactic Acid Calcium Ferritin Total Bilirubin AST ALT Alkaline Phosphatase Lactate Dehydrogenase C-Reactive Protein Total Protein Albumin Triglycerides Arterial Blood Glucose Arterial Blood Ionized Calcium Ur Specific [place] Vancomycin Trough Coronavirus (PCR) 11/16/20 11/16/20 11/16/20 16:13 21:29 Unknown WBC RBC Hgb Hct Plt Count Lymph % (Auto) Holt % (Auto) Lymph # (Auto) [place] # (Auto) Baso # (Auto) Seg Neutrophils % Seg Neuts % (Manual) Lymphocytes % (Manual) Seg Neutrophils # Seg Neutrophils # Man Lymphocytes # (Manual) D-Dimer ABG pH POC ABG pCO2 POC ABG pO2 ABG pO2 ABG HCO3 ABG O2 Saturation ABG Base Excess ABG Hemoglobin ABG Oxyhemoglobin ABG Sodium ABG Potassium ABG Chloride ABG Glucose Oxyhemoglobin Sodium Potassium Chloride Carbon Dioxide BUN Creatinine Glucose POC Glucose 257 H 376 H Hemoglobin A1c Lactic Acid Calcium Ferritin Total Bilirubin AST ALT Alkaline Phosphatase Lactate Dehydrogenase C-Reactive Protein Total Protein Albumin Triglycerides Arterial Blood Glucose Arterial Blood Ionized Calcium Ur Specific [place] Vancomycin Trough Coronavirus (PCR) Positive A 11/17/20 11/17/20 11/17/20 07:42 12:07 17:25 WBC RBC Hgb Hct Plt Count Lymph % (Auto) [place] % (Auto) Lymph # (Auto) [place] # (Auto) Baso # (Auto) Seg Neutrophils % Seg Neuts % (Manual) Lymphocytes % (Manual) Seg Neutrophils # Seg Neutrophils # Man Lymphocytes # (Manual) D-Dimer ABG pH POC ABG pCO2 POC ABG pO2 ABG pO2 ABG HCO3 ABG O2 Saturation ABG Base Excess ABG Hemoglobin ABG Oxyhemoglobin ABG Sodium ABG Potassium ABG Chloride ABG Glucose Oxyhemoglobin Sodium Potassium Chloride Carbon Dioxide BUN Creatinine Glucose POC Glucose 231 H 380 H 302 H Hemoglobin A1c Lactic Acid Calcium Ferritin Total Bilirubin AST ALT Alkaline Phosphatase Lactate Dehydrogenase C-Reactive Protein Total Protein Albumin Triglycerides Arterial Blood Glucose Arterial Blood Ionized Calcium Ur Specific [place] Vancomycin Trough Coronavirus (PCR) 11/17/20 11/18/20 11/18/20 21:53 04:25 07:45 WBC RBC Hgb Hct Plt Count Lymph % (Auto) [place] % (Auto) Lymph # (Auto) [place] # (Auto) Baso # (Auto) Seg Neutrophils % Seg Neuts % (Manual) Lymphocytes % (Manual) Seg Neutrophils # Seg Neutrophils # Man Lymphocytes # (Manual) D-Dimer ABG pH POC ABG pCO2 POC ABG pO2 ABG pO2 ABG HCO3 ABG O2 Saturation ABG Base Excess ABG Hemoglobin ABG Oxyhemoglobin ABG Sodium ABG Potassium ABG Chloride ABG Glucose Oxyhemoglobin Sodium 136 L Potassium Chloride Carbon Dioxide BUN 24 H Creatinine 0.6 L Glucose 212 H POC Glucose 293 H 216 H Hemoglobin A1c Lactic Acid Calcium 7.4 L Ferritin Total Bilirubin AST 41 H ALT Alkaline Phosphatase 142 H Lactate Dehydrogenase C-Reactive Protein Total Protein Albumin 2.3 L Triglycerides Arterial Blood Glucose Arterial Blood Ionized Calcium Ur Specific [place] Vancomycin Trough Coronavirus (PCR) 11/18/20 11/18/20 11/18/20 12:28 15:58 21:37 WBC RBC Hgb Hct Plt Count Lymph % (Auto) [place] % (Auto) Lymph # (Auto) [place] # (Auto) Baso # (Auto) Seg Neutrophils % Seg Neuts % (Manual) Lymphocytes % (Manual) Seg Neutrophils # Seg Neutrophils # Man Lymphocytes # (Manual) D-Dimer ABG pH POC ABG pCO2 POC ABG pO2 ABG pO2 ABG HCO3 ABG O2 Saturation ABG Base Excess ABG Hemoglobin ABG Oxyhemoglobin ABG Sodium ABG Potassium ABG Chloride ABG Glucose Oxyhemoglobin Sodium Potassium Chloride Carbon Dioxide BUN Creatinine Glucose POC Glucose 165 H 220 H 311 H Hemoglobin A1c Lactic Acid Calcium Ferritin Total Bilirubin AST ALT Alkaline Phosphatase Lactate Dehydrogenase C-Reactive Protein Total Protein Albumin Triglycerides Arterial Blood Glucose Arterial Blood Ionized Calcium Ur Specific [place] Vancomycin Trough Coronavirus (PCR) 11/19/20 11/19/20 11/19/20 05:35 07:40 12:39 WBC RBC Hgb Hct Plt Count Lymph % (Auto) [place] % (Auto) Lymph # (Auto) [place] # (Auto) Baso # (Auto) Seg Neutrophils % Seg Neuts % (Manual) Lymphocytes % (Manual) Seg Neutrophils # Seg Neutrophils # Man Lymphocytes # (Manual) D-Dimer ABG pH POC ABG pCO2 POC ABG pO2 ABG pO2 ABG HCO3 ABG O2 Saturation ABG Base Excess ABG Hemoglobin ABG Oxyhemoglobin ABG Sodium ABG Potassium ABG Chloride ABG Glucose Oxyhemoglobin Sodium 132 L Potassium Chloride Carbon Dioxide BUN 25 H Creatinine 0.5 L Glucose 179 H POC Glucose 149 H 306 H Hemoglobin A1c Lactic Acid Calcium 7.5 L Ferritin Total Bilirubin AST ALT Alkaline Phosphatase 139 H Lactate Dehydrogenase C-Reactive Protein Total Protein Albumin 2.4 L Triglycerides Arterial Blood Glucose Arterial Blood Ionized Calcium Ur Specific [place] Vancomycin Trough Coronavirus (PCR) 11/19/20 11/19/20 11/20/20 16:17 21:25 08:30 WBC RBC Hgb Hct Plt Count Lymph % (Auto) [place] % (Auto) Lymph # (Auto) [place] # (Auto) Baso # (Auto) Seg Neutrophils % Seg Neuts % (Manual) Lymphocytes % (Manual) Seg Neutrophils # Seg Neutrophils # Man Lymphocytes # (Manual) D-Dimer ABG pH POC ABG pCO2 POC ABG pO2 ABG pO2 ABG HCO3 ABG O2 Saturation ABG Base Excess ABG Hemoglobin ABG Oxyhemoglobin ABG Sodium ABG Potassium ABG Chloride ABG Glucose Oxyhemoglobin Sodium Potassium Chloride Carbon Dioxide BUN Creatinine Glucose POC Glucose 364 H 347 H 141 H Hemoglobin A1c Lactic Acid Calcium Ferritin Total Bilirubin AST ALT Alkaline Phosphatase Lactate Dehydrogenase C-Reactive Protein Total Protein Albumin Triglycerides Arterial Blood Glucose Arterial Blood Ionized Calcium Ur Specific [place] Vancomycin Trough Coronavirus (PCR) 11/20/20 11/20/20 11/20/20 08:50 11:32 16:19 WBC RBC Hgb Hct Plt Count Lymph % (Auto) [place] % (Auto) Lymph # (Auto) [place] # (Auto) Baso # (Auto) Seg Neutrophils % Seg Neuts % (Manual) Lymphocytes % (Manual) Seg Neutrophils # Seg Neutrophils # Man Lymphocytes # (Manual) D-Dimer ABG pH POC ABG pCO2 POC ABG pO2 ABG pO2 ABG HCO3 ABG O2 Saturation ABG Base Excess ABG Hemoglobin ABG Oxyhemoglobin ABG Sodium ABG Potassium ABG Chloride ABG Glucose Oxyhemoglobin Sodium 132 L Potassium Chloride 97.6 L Carbon Dioxide BUN 26 H Creatinine 0.5 L Glucose 201 H POC Glucose 296 H 327 H Hemoglobin A1c Lactic Acid Calcium 7.9 L Ferritin Total Bilirubin AST ALT Alkaline Phosphatase 137 H Lactate Dehydrogenase C-Reactive Protein Total Protein Albumin 2.6 L Triglycerides Arterial Blood Glucose Arterial Blood Ionized Calcium Ur Specific [place] Vancomycin Trough Coronavirus (PCR) 11/20/20 11/21/20 11/21/20 22:09 07:59 13:51 WBC RBC Hgb Hct Plt Count Lymph % (Auto) [place] % (Auto) Lymph # (Auto) [place] # (Auto) Baso # (Auto) Seg Neutrophils % Seg Neuts % (Manual) Lymphocytes % (Manual) Seg Neutrophils # Seg Neutrophils # Man Lymphocytes # (Manual) D-Dimer ABG pH POC ABG pCO2 POC ABG pO2 ABG pO2 ABG HCO3 ABG O2 Saturation ABG Base Excess ABG Hemoglobin ABG Oxyhemoglobin ABG Sodium ABG Potassium ABG Chloride ABG Glucose Oxyhemoglobin Sodium Potassium Chloride Carbon Dioxide BUN Creatinine Glucose POC Glucose 311 H 218 H 304 H Hemoglobin A1c Lactic Acid Calcium Ferritin Total Bilirubin AST ALT Alkaline Phosphatase Lactate Dehydrogenase C-Reactive Protein Total Protein Albumin Triglycerides Arterial Blood Glucose Arterial Blood Ionized Calcium Ur Specific [place] Vancomycin Trough Coronavirus (PCR) 11/21/20 11/21/20 11/21/20 16:09 21:34 23:00 WBC RBC Hgb Hct Plt Count Lymph % (Auto) [place] % (Auto) Lymph # (Auto) [place] # (Auto) Baso # (Auto) Seg Neutrophils % Seg Neuts % (Manual) Lymphocytes % (Manual) Seg Neutrophils # Seg Neutrophils # Man Lymphocytes # (Manual) D-Dimer ABG pH 7.206 L POC ABG pCO2 59.3 H POC ABG pO2 76.7 L ABG pO2 ABG HCO3 ABG O2 Saturation ABG Base Excess ABG Hemoglobin ABG Oxyhemoglobin ABG Sodium 133.1 L ABG Potassium ABG Chloride ABG Glucose 320 H Oxyhemoglobin Sodium Potassium Chloride Carbon Dioxide BUN Creatinine Glucose POC Glucose 239 H 279 H Hemoglobin A1c Lactic Acid Calcium Ferritin Total Bilirubin AST ALT Alkaline Phosphatase Lactate Dehydrogenase C-Reactive Protein Total Protein Albumin Triglycerides Arterial Blood Glucose 320 H Arterial Blood Ionized Calcium Ur Specific [place] Vancomycin Trough Coronavirus (PCR) 11/22/20 11/22/20 11/22/20 04:52 04:52 04:52 WBC RBC Hgb Hct Plt Count Lymph % (Auto) Holt % (Auto) Lymph # (Auto) [place] # (Auto) Baso # (Auto) Seg Neutrophils % Seg Neuts % (Manual) Lymphocytes % (Manual) Seg Neutrophils # Seg Neutrophils # Man Lymphocytes # (Manual) D-Dimer 1858.36 H ABG pH POC ABG pCO2 POC ABG pO2 ABG pO2 ABG HCO3 ABG O2 Saturation ABG Base Excess ABG Hemoglobin ABG Oxyhemoglobin ABG Sodium ABG Potassium ABG Chloride ABG Glucose Oxyhemoglobin Sodium Potassium Chloride Carbon Dioxide BUN Creatinine Glucose POC Glucose Hemoglobin A1c Lactic Acid Calcium Ferritin 734.2 H Total Bilirubin AST ALT Alkaline Phosphatase Lactate Dehydrogenase 404 H C-Reactive Protein 2.80 H Total Protein Albumin Triglycerides Arterial Blood Glucose Arterial Blood Ionized Calcium Ur Specific [place] Vancomycin Trough Coronavirus (PCR) 11/22/20 11/22/20 11/22/20 05:12 05:39 11:50 WBC RBC Hgb Hct Plt Count Lymph % (Auto) [place] % (Auto) Lymph # (Auto) Holt # (Auto) Baso # (Auto) Seg Neutrophils % Seg Neuts % (Manual) Lymphocytes % (Manual) Seg Neutrophils # Seg Neutrophils # Man Lymphocytes # (Manual) D-Dimer ABG pH POC ABG pCO2 POC ABG pO2 51.0 L ABG pO2 ABG HCO3 ABG O2 Saturation ABG Base Excess ABG Hemoglobin ABG Oxyhemoglobin ABG Sodium 131.2 L ABG Potassium 4.6 H ABG Chloride ABG Glucose 317 H Oxyhemoglobin Sodium Potassium Chloride Carbon Dioxide BUN Creatinine Glucose POC Glucose 340 H 417 H Hemoglobin A1c Lactic Acid Calcium Ferritin Total Bilirubin AST ALT Alkaline Phosphatase Lactate Dehydrogenase C-Reactive Protein Total Protein Albumin Triglycerides Arterial Blood Glucose 317 H Arterial Blood Ionized Calcium 4.4 L Ur Specific [place] Vancomycin Trough Coronavirus (PCR) 11/22/20 11/22/20 11/22/20 12:22 12:22 17:10 WBC 14.4 H RBC Hgb Hct Plt Count Lymph % (Auto) [place] % (Auto) Lymph # (Auto) [place] # (Auto) Baso # (Auto) Seg Neutrophils % Seg Neuts % (Manual) 98.0 H Lymphocytes % (Manual) Seg Neutrophils # Seg Neutrophils # Man 14.1 H Lymphocytes # (Manual) 0.0 L D-Dimer ABG pH POC ABG pCO2 POC ABG pO2 ABG pO2 ABG HCO3 ABG O2 Saturation ABG Base Excess ABG Hemoglobin ABG Oxyhemoglobin ABG Sodium ABG Potassium ABG Chloride ABG Glucose Oxyhemoglobin Sodium 132 L Potassium Chloride Carbon Dioxide BUN 36 H Creatinine 0.6 L Glucose 219 H POC Glucose 157 H Hemoglobin A1c Lactic Acid Calcium 7.2 L Ferritin Total Bilirubin AST ALT Alkaline Phosphatase Lactate Dehydrogenase C-Reactive Protein Total Protein Albumin Triglycerides Arterial Blood Glucose Arterial Blood Ionized Calcium Ur Specific [place] Vancomycin Trough Coronavirus (PCR) 11/22/20 11/22/20 11/22/20 18:33 21:44 23:47 WBC RBC Hgb Hct Plt Count Lymph % (Auto) [place] % (Auto) Lymph # (Auto) [place] # (Auto) Baso # (Auto) Seg Neutrophils % Seg Neuts % (Manual) Lymphocytes % (Manual) Seg Neutrophils # Seg Neutrophils # Man Lymphocytes # (Manual) D-Dimer ABG pH POC ABG pCO2 POC ABG pO2 60.8 L ABG pO2 ABG HCO3 ABG O2 Saturation ABG Base Excess ABG Hemoglobin ABG Oxyhemoglobin 88.1 L ABG Sodium 135.1 L ABG Potassium ABG Chloride ABG Glucose 141 H Oxyhemoglobin Sodium Potassium Chloride Carbon Dioxide BUN Creatinine Glucose POC Glucose 117 H 123 H Hemoglobin A1c Lactic Acid Calcium Ferritin Total Bilirubin AST ALT Alkaline Phosphatase Lactate Dehydrogenase C-Reactive Protein Total Protein Albumin Triglycerides Arterial Blood Glucose 141 H Arterial Blood Ionized Calcium Ur Specific [place] Vancomycin Trough Coronavirus (PCR) 11/23/20 11/23/20 11/23/20 04:00 04:00 05:23 WBC 14.4 H RBC Hgb Hct Plt Count Lymph % (Auto) [place] % (Auto) Lymph # (Auto) [place] # (Auto) Baso # (Auto) Seg Neutrophils % Seg Neuts % (Manual) Lymphocytes % (Manual) Seg Neutrophils # Seg Neutrophils # Man Lymphocytes # (Manual) D-Dimer ABG pH POC ABG pCO2 POC ABG pO2 ABG pO2 ABG HCO3 ABG O2 Saturation ABG Base Excess ABG Hemoglobin ABG Oxyhemoglobin ABG Sodium ABG Potassium ABG Chloride ABG Glucose Oxyhemoglobin Sodium 136 L Potassium Chloride Carbon Dioxide BUN 33 H Creatinine 0.6 L Glucose 115 H POC Glucose 173 H Hemoglobin A1c Lactic Acid Calcium 7.1 L Ferritin Total Bilirubin AST 64 H ALT 75 H Alkaline Phosphatase Lactate Dehydrogenase C-Reactive Protein Total Protein 5.9 L D Albumin 2.4 L Triglycerides Arterial Blood Glucose Arterial Blood Ionized Calcium Ur Specific [place] Vancomycin Trough Coronavirus (PCR) 11/23/20 11/23/20 11/23/20 05:40 11:27 17:10 WBC RBC Hgb Hct Plt Count Lymph % (Auto) [place] % (Auto) Lymph # (Auto) [place] # (Auto) Baso # (Auto) Seg Neutrophils % Seg Neuts % (Manual) Lymphocytes % (Manual) Seg Neutrophils # Seg Neutrophils # Man Lymphocytes # (Manual) D-Dimer ABG pH POC ABG pCO2 POC ABG pO2 56.5 L ABG pO2 ABG HCO3 ABG O2 Saturation ABG Base Excess ABG Hemoglobin ABG Oxyhemoglobin ABG Sodium ABG Potassium ABG Chloride 109.0 H ABG Glucose 114 H Oxyhemoglobin Sodium Potassium Chloride Carbon Dioxide BUN Creatinine Glucose POC Glucose 114 H 136 H Hemoglobin A1c Lactic Acid Calcium Ferritin Total Bilirubin AST ALT Alkaline Phosphatase Lactate Dehydrogenase C-Reactive Protein Total Protein Albumin Triglycerides Arterial Blood Glucose 114 H Arterial Blood Ionized Calcium 4.5 L Ur Specific [place] Vancomycin Trough Coronavirus (PCR) 11/24/20 11/24/20 11/24/20 05:14 05:14 05:14 WBC RBC Hgb Hct Plt Count Lymph % (Auto) [place] % (Auto) Lymph # (Auto) [place] # (Auto) Baso # (Auto) Seg Neutrophils % Seg Neuts % (Manual) Lymphocytes % (Manual) Seg Neutrophils # Seg Neutrophils # Man Lymphocytes # (Manual) D-Dimer 1433.39 H ABG pH POC ABG pCO2 POC ABG pO2 ABG pO2 ABG HCO3 ABG O2 Saturation ABG Base Excess ABG Hemoglobin ABG Oxyhemoglobin ABG Sodium ABG Potassium ABG Chloride ABG Glucose Oxyhemoglobin Sodium Potassium Chloride Carbon Dioxide BUN Creatinine Glucose POC Glucose Hemoglobin A1c Lactic Acid Calcium Ferritin 997.5 H Total Bilirubin AST ALT Alkaline Phosphatase Lactate Dehydrogenase 463 H C-Reactive Protein Total Protein Albumin Triglycerides Arterial Blood Glucose Arterial Blood Ionized Calcium Ur Specific [place] Vancomycin Trough Coronavirus (PCR) 11/24/20 11/24/20 11/24/20 05:31 05:36 12:05 WBC RBC Hgb Hct Plt Count Lymph % (Auto) [place] % (Auto) Lymph # (Auto) [place] # (Auto) Baso # (Auto) Seg Neutrophils % Seg Neuts % (Manual) Lymphocytes % (Manual) Seg Neutrophils # Seg Neutrophils # Man Lymphocytes # (Manual) D-Dimer ABG pH POC ABG pCO2 POC ABG pO2 57.2 L ABG pO2 ABG HCO3 ABG O2 Saturation ABG Base Excess ABG Hemoglobin ABG Oxyhemoglobin ABG Sodium ABG Potassium ABG Chloride ABG Glucose 180 H Oxyhemoglobin Sodium Potassium Chloride Carbon Dioxide BUN Creatinine Glucose POC Glucose 199 H 143 H Hemoglobin A1c Lactic Acid Calcium Ferritin Total Bilirubin AST ALT Alkaline Phosphatase Lactate Dehydrogenase C-Reactive Protein Total Protein Albumin Triglycerides Arterial Blood Glucose 180 H Arterial Blood Ionized Calcium 4.5 L Ur Specific [place] Vancomycin Trough Coronavirus (PCR) 11/24/20 11/24/20 11/24/20 12:14 17:47 23:47 WBC RBC Hgb Hct Plt Count Lymph % (Auto) [place] % (Auto) Lymph # (Auto) [place] # (Auto) Baso # (Auto) Seg Neutrophils % Seg Neuts % (Manual) Lymphocytes % (Manual) Seg Neutrophils # Seg Neutrophils # Man Lymphocytes # (Manual) D-Dimer ABG pH 7.261 L POC ABG pCO2 59.7 H POC ABG pO2 75.7 L ABG pO2 ABG HCO3 ABG O2 Saturation ABG Base Excess ABG Hemoglobin ABG Oxyhemoglobin 92.5 L ABG Sodium ABG Potassium ABG Chloride 108.0 H ABG Glucose 150 H Oxyhemoglobin Sodium Potassium Chloride Carbon Dioxide BUN Creatinine Glucose POC Glucose 223 H 179 H Hemoglobin A1c Lactic Acid Calcium Ferritin Total Bilirubin AST ALT Alkaline Phosphatase Lactate Dehydrogenase C-Reactive Protein Total Protein Albumin Triglycerides Arterial Blood Glucose 150 H Arterial Blood Ionized Calcium Ur Specific [place] Vancomycin Trough Coronavirus (PCR) 11/25/20 11/25/20 11/25/20 03:29 05:07 05:15 WBC 13.9 H RBC Hgb Hct Plt Count Lymph % (Auto) [place] % (Auto) Lymph # (Auto) [place] # (Auto) Baso # (Auto) Seg Neutrophils % Seg Neuts % (Manual) 97.0 H Lymphocytes % (Manual) Seg Neutrophils # Seg Neutrophils # Man 13.5 H Lymphocytes # (Manual) 0.0 L D-Dimer ABG pH 7.272 L POC ABG pCO2 69.0 H POC ABG pO2 132.9 H ABG pO2 ABG HCO3 ABG O2 Saturation ABG Base Excess ABG Hemoglobin ABG Oxyhemoglobin ABG Sodium ABG Potassium ABG Chloride ABG Glucose 174 H Oxyhemoglobin Sodium Potassium Chloride Carbon Dioxide BUN Creatinine Glucose POC Glucose 168 H Hemoglobin A1c Lactic Acid Calcium Ferritin Total Bilirubin AST ALT Alkaline Phosphatase Lactate Dehydrogenase C-Reactive Protein Total Protein Albumin Triglycerides Arterial Blood Glucose 174 H Arterial Blood Ionized Calcium Ur Specific [place] Vancomycin Trough Coronavirus (PCR) 11/25/20 11/25/20 11/25/20 05:15 11:25 17:35 WBC RBC Hgb Hct Plt Count Lymph % (Auto) [place] % (Auto) Lymph # (Auto) [place] # (Auto) Baso # (Auto) Seg Neutrophils % Seg Neuts % (Manual) Lymphocytes % (Manual) Seg Neutrophils # Seg Neutrophils # Man Lymphocytes # (Manual) D-Dimer ABG pH POC ABG pCO2 POC ABG pO2 ABG pO2 ABG HCO3 ABG O2 Saturation ABG Base Excess ABG Hemoglobin ABG Oxyhemoglobin ABG Sodium ABG Potassium ABG Chloride ABG Glucose Oxyhemoglobin Sodium Potassium Chloride Carbon Dioxide BUN 29 H Creatinine 0.5 L Glucose 161 H POC Glucose 224 H 228 H Hemoglobin A1c Lactic Acid Calcium 7.8 L Ferritin Total Bilirubin AST 89 H ALT 129 H Alkaline Phosphatase Lactate Dehydrogenase C-Reactive Protein Total Protein 5.8 L Albumin 2.5 L Triglycerides Arterial Blood Glucose Arterial Blood Ionized Calcium Ur Specific [place] Vancomycin Trough Coronavirus (PCR) 11/25/20 11/25/20 11/26/20 20:45 23:28 04:00 WBC RBC Hgb Hct Plt Count Lymph % (Auto) [place] % (Auto) Lymph # (Auto) [place] # (Auto) Baso # (Auto) Seg Neutrophils % Seg Neuts % (Manual) Lymphocytes % (Manual) Seg Neutrophils # Seg Neutrophils # Man Lymphocytes # (Manual) D-Dimer ABG pH POC ABG pCO2 POC ABG pO2 ABG pO2 ABG HCO3 ABG O2 Saturation ABG Base Excess ABG Hemoglobin ABG Oxyhemoglobin ABG Sodium ABG Potassium ABG Chloride ABG Glucose Oxyhemoglobin Sodium Potassium Chloride Carbon Dioxide BUN Creatinine Glucose POC Glucose 177 H 243 H Hemoglobin A1c Lactic Acid Calcium Ferritin 778.8 H Total Bilirubin AST ALT Alkaline Phosphatase Lactate Dehydrogenase C-Reactive Protein Total Protein Albumin Triglycerides Arterial Blood Glucose Arterial Blood Ionized Calcium Ur Specific [place] Vancomycin Trough Coronavirus (PCR) 11/26/20 11/26/20 11/26/20 04:00 05:34 06:04 WBC RBC Hgb Hct Plt Count Lymph % (Auto) [place] % (Auto) Lymph # (Auto) [place] # (Auto) Baso # (Auto) Seg Neutrophils % Seg Neuts % (Manual) Lymphocytes % (Manual) Seg Neutrophils # Seg Neutrophils # Man Lymphocytes # (Manual) D-Dimer 926.11 H ABG pH POC ABG pCO2 POC ABG pO2 ABG pO2 ABG HCO3 ABG O2 Saturation ABG Base Excess ABG Hemoglobin ABG Oxyhemoglobin ABG Sodium ABG Potassium ABG Chloride ABG Glucose Oxyhemoglobin Sodium Potassium Chloride Carbon Dioxide 39 H D BUN 30 H Creatinine 0.5 L Glucose 193 H POC Glucose 178 H Hemoglobin A1c Lactic Acid Calcium 7.7 L Ferritin Total Bilirubin AST 65 H ALT 132 H Alkaline Phosphatase Lactate Dehydrogenase 288 H C-Reactive Protein 1.40 H Total Protein 5.7 L Albumin 2.4 L Triglycerides Arterial Blood Glucose Arterial Blood Ionized Calcium Ur Specific [place] Vancomycin Trough Coronavirus (PCR) 11/26/20 11/26/20 11/26/20 06:04 08:47 11:20 WBC 12.4 H RBC Hgb Hct Plt Count Lymph % (Auto) [place] % (Auto) Lymph # (Auto) [place] # (Auto) Baso # (Auto) Seg Neutrophils % Seg Neuts % (Manual) 98.0 H Lymphocytes % (Manual) 1.0 L Seg Neutrophils # Seg Neutrophils # Man 12.2 H Lymphocytes # (Manual) 0.1 L D-Dimer ABG pH POC ABG pCO2 75.2 H POC ABG pO2 61.9 L ABG pO2 ABG HCO3 ABG O2 Saturation ABG Base Excess ABG Hemoglobin ABG Oxyhemoglobin 90.3 L ABG Sodium ABG Potassium ABG Chloride ABG Glucose 243 H Oxyhemoglobin Sodium Potassium Chloride Carbon Dioxide BUN Creatinine Glucose POC Glucose 255 H Hemoglobin A1c Lactic Acid Calcium Ferritin Total Bilirubin AST ALT Alkaline Phosphatase Lactate Dehydrogenase C-Reactive Protein Total Protein Albumin Triglycerides Arterial Blood Glucose 243 H Arterial Blood Ionized Calcium Ur Specific [place] Vancomycin Trough Coronavirus (PCR) 11/26/20 11/26/20 11/26/20 16:20 17:15 23:41 WBC RBC Hgb Hct Plt Count Lymph % (Auto) [place] % (Auto) Lymph # (Auto) [place] # (Auto) Baso # (Auto) Seg Neutrophils % Seg Neuts % (Manual) Lymphocytes % (Manual) Seg Neutrophils # Seg Neutrophils # Man Lymphocytes # (Manual) D-Dimer ABG pH POC ABG pCO2 66.6 H POC ABG pO2 78.1 L ABG pO2 ABG HCO3 ABG O2 Saturation ABG Base Excess ABG Hemoglobin ABG Oxyhemoglobin ABG Sodium ABG Potassium ABG Chloride ABG Glucose 244 H Oxyhemoglobin Sodium Potassium Chloride Carbon Dioxide BUN Creatinine Glucose POC Glucose 219 H 210 H Hemoglobin A1c Lactic Acid Calcium Ferritin Total Bilirubin AST ALT Alkaline Phosphatase Lactate Dehydrogenase C-Reactive Protein Total Protein Albumin Triglycerides Arterial Blood Glucose 244 H Arterial Blood Ionized Calcium Ur Specific [place] Vancomycin Trough Coronavirus (PCR) 11/27/20 11/27/20 11/27/20 04:46 05:38 06:25 WBC 13.8 H RBC Hgb Hct Plt Count Lymph % (Auto) 2.0 L [place] % (Auto) Lymph # (Auto) 0.3 L [place] # (Auto) Baso # (Auto) Seg Neutrophils % Seg Neuts % (Manual) 96.0 H Lymphocytes % (Manual) Seg Neutrophils # 12.7 H Seg Neutrophils # Man 13.2 H Lymphocytes # (Manual) 0.0 L D-Dimer ABG pH POC ABG pCO2 63.0 H POC ABG pO2 53.6 L ABG pO2 ABG HCO3 ABG O2 Saturation ABG Base Excess ABG Hemoglobin ABG Oxyhemoglobin 87.8 L ABG Sodium 115.4 L ABG Potassium ABG Chloride ABG Glucose 219 H Oxyhemoglobin Sodium Potassium Chloride Carbon Dioxide BUN Creatinine Glucose POC Glucose 227 H Hemoglobin A1c Lactic Acid Calcium Ferritin Total Bilirubin AST ALT Alkaline Phosphatase Lactate Dehydrogenase C-Reactive Protein Total Protein Albumin Triglycerides Arterial Blood Glucose 219 H Arterial Blood Ionized Calcium Ur Specific [place] Vancomycin Trough Coronavirus (PCR) 11/27/20 11/27/20 11/27/20 06:25 18:05 23:29 WBC RBC Hgb Hct Plt Count Lymph % (Auto) [place] % (Auto) Lymph # (Auto) [place] # (Auto) Baso # (Auto) Seg Neutrophils % Seg Neuts % (Manual) Lymphocytes % (Manual) Seg Neutrophils # Seg Neutrophils # Man Lymphocytes # (Manual) D-Dimer ABG pH POC ABG pCO2 POC ABG pO2 ABG pO2 ABG HCO3 ABG O2 Saturation ABG Base Excess ABG Hemoglobin ABG Oxyhemoglobin ABG Sodium ABG Potassium ABG Chloride ABG Glucose Oxyhemoglobin Sodium Potassium Chloride Carbon Dioxide 38 H BUN 34 H Creatinine 0.4 L Glucose 243 H POC Glucose 329 H 227 H Hemoglobin A1c Lactic Acid Calcium 7.9 L Ferritin Total Bilirubin AST 50 H ALT 110 H Alkaline Phosphatase Lactate Dehydrogenase C-Reactive Protein Total Protein 6.1 L Albumin 2.4 L Triglycerides Arterial Blood Glucose Arterial Blood Ionized Calcium Ur Specific [place] Vancomycin Trough Coronavirus (PCR) 11/28/20 11/28/20 11/28/20 03:45 03:45 03:46 WBC 12.2 H RBC Hgb Hct Plt Count Lymph % (Auto) [place] % (Auto) Lymph # (Auto) [place] # (Auto) Baso # (Auto) Seg Neutrophils % Seg Neuts % (Manual) 93.0 H Lymphocytes % (Manual) 2.0 L Seg Neutrophils # Seg Neutrophils # Man 11.3 H Lymphocytes # (Manual) 0.2 L D-Dimer ABG pH POC ABG pCO2 68.4 H POC ABG pO2 55.4 L ABG pO2 ABG HCO3 ABG O2 Saturation ABG Base Excess ABG Hemoglobin ABG Oxyhemoglobin ABG Sodium ABG Potassium ABG Chloride ABG Glucose 197 H Oxyhemoglobin Sodium Potassium Chloride Carbon Dioxide 36 H BUN 37 H Creatinine 0.4 L Glucose 194 H POC Glucose Hemoglobin A1c Lactic Acid Calcium 8.1 L Ferritin Total Bilirubin AST ALT 86 H Alkaline Phosphatase Lactate Dehydrogenase C-Reactive Protein Total Protein 6.0 L Albumin 2.3 L Triglycerides Arterial Blood Glucose 197 H Arterial Blood Ionized Calcium Ur Specific [place] Vancomycin Trough Coronavirus (PCR) 11/28/20 11/28/20 11/29/20 05:24 12:21 04:41 WBC RBC Hgb Hct Plt Count Lymph % (Auto) [place] % (Auto) Lymph # (Auto) [place] # (Auto) Baso # (Auto) Seg Neutrophils % Seg Neuts % (Manual) Lymphocytes % (Manual) Seg Neutrophils # Seg Neutrophils # Man Lymphocytes # (Manual) D-Dimer ABG pH POC ABG pCO2 55.1 H POC ABG pO2 53.6 L ABG pO2 ABG HCO3 ABG O2 Saturation ABG Base Excess ABG Hemoglobin ABG Oxyhemoglobin 87.1 L ABG Sodium 131.2 L ABG Potassium ABG Chloride ABG Glucose 164 H Oxyhemoglobin Sodium Potassium Chloride Carbon Dioxide BUN Creatinine Glucose POC Glucose 173 H 126 H Hemoglobin A1c Lactic Acid Calcium Ferritin Total Bilirubin AST ALT Alkaline Phosphatase Lactate Dehydrogenase C-Reactive Protein Total Protein Albumin Triglycerides Arterial Blood Glucose 164 H Arterial Blood Ionized Calcium 4.4 L Ur Specific [place] Vancomycin Trough Coronavirus (PCR) 11/29/20 11/29/20 11/29/20 05:29 12:41 13:28 WBC RBC Hgb Hct Plt Count Lymph % (Auto) [place] % (Auto) Lymph # (Auto) [place] # (Auto) Baso # (Auto) Seg Neutrophils % Seg Neuts % (Manual) Lymphocytes % (Manual) Seg Neutrophils # Seg Neutrophils # Man Lymphocytes # (Manual) D-Dimer ABG pH POC ABG pCO2 POC ABG pO2 ABG pO2 ABG HCO3 ABG O2 Saturation ABG Base Excess ABG Hemoglobin ABG Oxyhemoglobin ABG Sodium ABG Potassium ABG Chloride ABG Glucose Oxyhemoglobin Sodium Potassium Chloride Carbon Dioxide 40 H BUN 32 H Creatinine 0.4 L Glucose 274 H POC Glucose 173 H 257 H Hemoglobin A1c Lactic Acid Calcium 7.2 L Ferritin Total Bilirubin AST 57 H ALT 102 H Alkaline Phosphatase Lactate Dehydrogenase C-Reactive Protein Total Protein 5.7 L Albumin 2.1 L Triglycerides Arterial Blood Glucose Arterial Blood Ionized Calcium Ur Specific [place] Vancomycin Trough Coronavirus (PCR) 11/29/20 11/29/20 11/29/20 15:40 17:36 21:26 WBC RBC Hgb Hct Plt Count Lymph % (Auto) [place] % (Auto) Lymph # (Auto) [place] # (Auto) Baso # (Auto) Seg Neutrophils % Seg Neuts % (Manual) Lymphocytes % (Manual) Seg Neutrophils # Seg Neutrophils # Man Lymphocytes # (Manual) D-Dimer ABG pH POC ABG pCO2 POC ABG pO2 ABG pO2 ABG HCO3 ABG O2 Saturation ABG Base Excess ABG Hemoglobin ABG Oxyhemoglobin ABG Sodium ABG Potassium ABG Chloride ABG Glucose Oxyhemoglobin Sodium Potassium Chloride Carbon Dioxide BUN Creatinine Glucose POC Glucose 240 H 244 H Hemoglobin A1c Lactic Acid Calcium Ferritin Total Bilirubin AST ALT Alkaline Phosphatase Lactate Dehydrogenase C-Reactive Protein Total Protein Albumin Triglycerides Arterial Blood Glucose Arterial Blood Ionized Calcium Ur Specific [place] Vancomycin Trough 4.0 L Coronavirus (PCR) 11/29/20 11/30/20 11/30/20 23:26 03:30 03:30 WBC RBC Hgb Hct Plt Count Lymph % (Auto) [place] % (Auto) Lymph # (Auto) [place] # (Auto) Baso # (Auto) Seg Neutrophils % Seg Neuts % (Manual) 97.0 H Lymphocytes % (Manual) 1.0 L Seg Neutrophils # Seg Neutrophils # Man 9.9 H Lymphocytes # (Manual) 0.1 L D-Dimer ABG pH POC ABG pCO2 POC ABG pO2 ABG pO2 ABG HCO3 ABG O2 Saturation ABG Base Excess ABG Hemoglobin ABG Oxyhemoglobin ABG Sodium ABG Potassium ABG Chloride ABG Glucose Oxyhemoglobin Sodium Potassium Chloride Carbon Dioxide 38 H BUN 34 H Creatinine 0.4 L Glucose 305 H POC Glucose 283 H Hemoglobin A1c Lactic Acid Calcium 7.6 L Ferritin Total Bilirubin AST ALT 89 H Alkaline Phosphatase Lactate Dehydrogenase C-Reactive Protein Total Protein 6.0 L Albumin 2.3 L Triglycerides Arterial Blood Glucose Arterial Blood Ionized Calcium Ur Specific [place] Vancomycin Trough Coronavirus (PCR) 11/30/20 11/30/20 11/30/20 03:57 05:22 12:05 WBC RBC Hgb Hct Plt Count Lymph % (Auto) [place] % (Auto) Lymph # (Auto) [place] # (Auto) Baso # (Auto) Seg Neutrophils % Seg Neuts % (Manual) Lymphocytes % (Manual) Seg Neutrophils # Seg Neutrophils # Man Lymphocytes # (Manual) D-Dimer ABG pH POC ABG pCO2 60.8 H POC ABG pO2 51.1 L ABG pO2 ABG HCO3 ABG O2 Saturation ABG Base Excess ABG Hemoglobin ABG Oxyhemoglobin 84.6 L ABG Sodium ABG Potassium ABG Chloride ABG Glucose 315 H Oxyhemoglobin Sodium Potassium Chloride Carbon Dioxide BUN Creatinine Glucose POC Glucose 295 H 413 H Hemoglobin A1c Lactic Acid Calcium Ferritin Total Bilirubin AST ALT Alkaline Phosphatase Lactate Dehydrogenase C-Reactive Protein Total Protein Albumin Triglycerides Arterial Blood Glucose 315 H Arterial Blood Ionized Calcium 4.5 L Ur Specific [place] Vancomycin Trough Coronavirus (PCR) 11/30/20 11/30/20 12/01/20 17:24 23:25 02:14 WBC RBC Hgb Hct Plt Count Lymph % (Auto) [place] % (Auto) Lymph # (Auto) [place] # (Auto) Baso # (Auto) Seg Neutrophils % Seg Neuts % (Manual) Lymphocytes % (Manual) Seg Neutrophils # Seg Neutrophils # Man Lymphocytes # (Manual) D-Dimer ABG pH 7.278 L POC ABG pCO2 78.1 H POC ABG pO2 79.5 L ABG pO2 ABG HCO3 ABG O2 Saturation ABG Base Excess ABG Hemoglobin 11.6 L ABG Oxyhemoglobin ABG Sodium 134.5 L ABG Potassium 4.6 H ABG Chloride ABG Glucose 286 H Oxyhemoglobin Sodium Potassium Chloride Carbon Dioxide BUN Creatinine Glucose POC Glucose 305 H 302 H Hemoglobin A1c Lactic Acid Calcium Ferritin Total Bilirubin AST ALT Alkaline Phosphatase Lactate Dehydrogenase C-Reactive Protein Total Protein Albumin Triglycerides Arterial Blood Glucose 286 H Arterial Blood Ionized Calcium Ur Specific [place] Vancomycin Trough Coronavirus (PCR) 12/01/20 12/01/20 12/01/20 03:35 03:35 05:22 WBC 13.4 H RBC 3.54 L Hgb 10.4 L Hct 31.8 L Plt Count Lymph % (Auto) [place] % (Auto) Lymph # (Auto) [place] # (Auto) Baso # (Auto) Seg Neutrophils % Seg Neuts % (Manual) 95.0 H Lymphocytes % (Manual) 3.0 L Seg Neutrophils # Seg Neutrophils # Man 12.7 H Lymphocytes # (Manual) 0.4 L D-Dimer ABG pH POC ABG pCO2 POC ABG pO2 ABG pO2 ABG HCO3 ABG O2 Saturation ABG Base Excess ABG Hemoglobin ABG Oxyhemoglobin ABG Sodium ABG Potassium ABG Chloride ABG Glucose Oxyhemoglobin Sodium Potassium Chloride Carbon Dioxide 35 H BUN 34 H Creatinine 0.5 L Glucose 279 H POC Glucose 259 H Hemoglobin A1c Lactic Acid Calcium 7.6 L Ferritin Total Bilirubin AST ALT 63 H Alkaline Phosphatase Lactate Dehydrogenase C-Reactive Protein Total Protein 4.8 L Albumin 2.1 L Triglycerides Arterial Blood Glucose Arterial Blood Ionized Calcium Ur Specific [place] Vancomycin Trough Coronavirus (PCR) 12/01/20 12/01/20 12/01/20 12:05 17:40 23:46 WBC RBC Hgb Hct Plt Count Lymph % (Auto) [place] % (Auto) Lymph # (Auto) [place] # (Auto) Baso # (Auto) Seg Neutrophils % Seg Neuts % (Manual) Lymphocytes % (Manual) Seg Neutrophils # Seg Neutrophils # Man Lymphocytes # (Manual) D-Dimer ABG pH POC ABG pCO2 POC ABG pO2 ABG pO2 ABG HCO3 ABG O2 Saturation ABG Base Excess ABG Hemoglobin ABG Oxyhemoglobin ABG Sodium ABG Potassium ABG Chloride ABG Glucose Oxyhemoglobin Sodium Potassium Chloride Carbon Dioxide BUN Creatinine Glucose POC Glucose 197 H 244 H 284 H Hemoglobin A1c Lactic Acid Calcium Ferritin Total Bilirubin AST ALT Alkaline Phosphatase Lactate Dehydrogenase C-Reactive Protein Total Protein Albumin Triglycerides Arterial Blood Glucose Arterial Blood Ionized Calcium Ur Specific [place] Vancomycin Trough Coronavirus (PCR) 12/02/20 12/02/20 12/02/20 02:14 03:03 04:11 WBC 16.5 H RBC 3.55 L Hgb 10.5 L Hct 31.9 L Plt Count Lymph % (Auto) [place] % (Auto) Lymph # (Auto) [place] # (Auto) Baso # (Auto) Seg Neutrophils % Seg Neuts % (Manual) 90.0 H Lymphocytes % (Manual) 3.0 L Seg Neutrophils # Seg Neutrophils # Man 14.9 H Lymphocytes # (Manual) 0.5 L D-Dimer ABG pH POC ABG pCO2 74.8 H POC ABG pO2 58.9 L ABG pO2 ABG HCO3 ABG O2 Saturation ABG Base Excess ABG Hemoglobin 11.5 L ABG Oxyhemoglobin ABG Sodium ABG Potassium ABG Chloride ABG Glucose 264 H Oxyhemoglobin Sodium Potassium Chloride Carbon Dioxide 37 H BUN 30 H Creatinine 0.4 L Glucose 245 H POC Glucose Hemoglobin A1c Lactic Acid Calcium 7.5 L Ferritin Total Bilirubin AST ALT Alkaline Phosphatase Lactate Dehydrogenase C-Reactive Protein Total Protein 5.2 L Albumin 2.2 L Triglycerides Arterial Blood Glucose 264 H Arterial Blood Ionized Calcium 4.5 L Ur Specific [place] Vancomycin Trough Coronavirus (PCR) 12/02/20 12/02/20 12/02/20 05:19 11:46 17:52 WBC RBC Hgb Hct Plt Count Lymph % (Auto) [place] % (Auto) Lymph # (Auto) [place] # (Auto) Baso # (Auto) Seg Neutrophils % Seg Neuts % (Manual) Lymphocytes % (Manual) Seg Neutrophils # Seg Neutrophils # Man Lymphocytes # (Manual) D-Dimer ABG pH POC ABG pCO2 POC ABG pO2 ABG pO2 ABG HCO3 ABG O2 Saturation ABG Base Excess ABG Hemoglobin ABG Oxyhemoglobin ABG Sodium ABG Potassium ABG Chloride ABG Glucose Oxyhemoglobin Sodium Potassium Chloride Carbon Dioxide BUN Creatinine Glucose POC Glucose 238 H 236 H 233 H Hemoglobin A1c Lactic Acid Calcium Ferritin Total Bilirubin AST ALT Alkaline Phosphatase Lactate Dehydrogenase C-Reactive Protein Total Protein Albumin Triglycerides Arterial Blood Glucose Arterial Blood Ionized Calcium Ur Specific [place] Vancomycin Trough Coronavirus (PCR) 12/02/20 12/03/20 12/03/20 23:23 03:21 04:35 WBC RBC Hgb Hct Plt Count 112 L Lymph % (Auto) [place] % (Auto) Lymph # (Auto) [place] # (Auto) Baso # (Auto) Seg Neutrophils % Seg Neuts % (Manual) 93.0 H Lymphocytes % (Manual) 4.0 L Seg Neutrophils # Seg Neutrophils # Man 9.1 H Lymphocytes # (Manual) 0.4 L D-Dimer ABG pH 7.299 L POC ABG pCO2 82.1 H POC ABG pO2 62.4 L ABG pO2 ABG HCO3 ABG O2 Saturation ABG Base Excess ABG Hemoglobin 11.5 L ABG Oxyhemoglobin 89.6 L ABG Sodium 134.3 L ABG Potassium ABG Chloride 95.0 L ABG Glucose 203 H Oxyhemoglobin Sodium Potassium Chloride Carbon Dioxide BUN Creatinine Glucose POC Glucose 213 H Hemoglobin A1c Lactic Acid Calcium Ferritin Total Bilirubin AST ALT Alkaline Phosphatase Lactate Dehydrogenase C-Reactive Protein Total Protein Albumin Triglycerides Arterial Blood Glucose 203 H Arterial Blood Ionized Calcium 4.5 L Ur Specific [place] Vancomycin Trough Coronavirus (PCR) 12/03/20 12/03/20 12/03/20 04:35 05:42 11:28 WBC RBC Hgb Hct Plt Count Lymph % (Auto) [place] % (Auto) Lymph # (Auto) [place] # (Auto) Baso # (Auto) Seg Neutrophils % Seg Neuts % (Manual) Lymphocytes % (Manual) Seg Neutrophils # Seg Neutrophils # Man Lymphocytes # (Manual) D-Dimer ABG pH POC ABG pCO2 POC ABG pO2 ABG pO2 ABG HCO3 ABG O2 Saturation ABG Base Excess ABG Hemoglobin ABG Oxyhemoglobin ABG Sodium ABG Potassium ABG Chloride ABG Glucose Oxyhemoglobin Sodium Potassium Chloride 97.8 L Carbon Dioxide 43 H* BUN 25 H Creatinine 0.3 L Glucose 214 H POC Glucose 193 H 211 H Hemoglobin A1c Lactic Acid Calcium 7.7 L Ferritin Total Bilirubin AST ALT 63 H Alkaline Phosphatase 132 H Lactate Dehydrogenase C-Reactive Protein Total Protein 5.1 L Albumin 2.4 L Triglycerides Arterial Blood Glucose Arterial Blood Ionized Calcium Ur Specific [place] Vancomycin Trough Coronavirus (PCR) 12/03/20 12/03/20 12/04/20 17:45 23:57 00:11 WBC RBC Hgb Hct Plt Count Lymph % (Auto) [place] % (Auto) Lymph # (Auto) [place] # (Auto) Baso # (Auto) Seg Neutrophils % Seg Neuts % (Manual) Lymphocytes % (Manual) Seg Neutrophils # Seg Neutrophils # Man Lymphocytes # (Manual) D-Dimer ABG pH POC ABG pCO2 POC ABG pO2 ABG pO2 ABG HCO3 ABG O2 Saturation ABG Base Excess ABG Hemoglobin ABG Oxyhemoglobin ABG Sodium ABG Potassium ABG Chloride ABG Glucose Oxyhemoglobin Sodium Potassium Chloride Carbon Dioxide BUN Creatinine Glucose POC Glucose 231 H 240 H 239 H Hemoglobin A1c Lactic Acid Calcium Ferritin Total Bilirubin AST ALT Alkaline Phosphatase Lactate Dehydrogenase C-Reactive Protein Total Protein Albumin Triglycerides Arterial Blood Glucose Arterial Blood Ionized Calcium Ur Specific [place] Vancomycin Trough Coronavirus (PCR) 12/04/20 12/04/20 12/04/20 04:00 05:20 05:34 WBC RBC Hgb Hct Plt Count Lymph % (Auto) [place] % (Auto) Lymph # (Auto) [place] # (Auto) Baso # (Auto) Seg Neutrophils % Seg Neuts % (Manual) Lymphocytes % (Manual) Seg Neutrophils # Seg Neutrophils # Man Lymphocytes # (Manual) D-Dimer ABG pH POC ABG pCO2 84.4 H POC ABG pO2 68.0 L ABG pO2 ABG HCO3 ABG O2 Saturation ABG Base Excess ABG Hemoglobin 11.6 L ABG Oxyhemoglobin ABG Sodium 130.9 L ABG Potassium ABG Chloride 90.0 L ABG Glucose 244 H Oxyhemoglobin Sodium Potassium Chloride Carbon Dioxide BUN Creatinine Glucose POC Glucose 241 H 213 H Hemoglobin A1c Lactic Acid Calcium Ferritin Total Bilirubin AST ALT Alkaline Phosphatase Lactate Dehydrogenase C-Reactive Protein Total Protein Albumin Triglycerides Arterial Blood Glucose 244 H Arterial Blood Ionized Calcium 4.4 L Ur Specific [place] Vancomycin Trough Coronavirus (PCR) 12/04/20 12/04/20 12/04/20 11:36 16:53 23:32 WBC RBC Hgb Hct Plt Count Lymph % (Auto) [place] % (Auto) Lymph # (Auto) [place] # (Auto) Baso # (Auto) Seg Neutrophils % Seg Neuts % (Manual) Lymphocytes % (Manual) Seg Neutrophils # Seg Neutrophils # Man Lymphocytes # (Manual) D-Dimer ABG pH POC ABG pCO2 POC ABG pO2 ABG pO2 ABG HCO3 ABG O2 Saturation ABG Base Excess ABG Hemoglobin ABG Oxyhemoglobin ABG Sodium ABG Potassium ABG Chloride ABG Glucose Oxyhemoglobin Sodium Potassium Chloride Carbon Dioxide BUN Creatinine Glucose POC Glucose 196 H 127 H 230 H Hemoglobin A1c Lactic Acid Calcium Ferritin Total Bilirubin AST ALT Alkaline Phosphatase Lactate Dehydrogenase C-Reactive Protein Total Protein Albumin Triglycerides Arterial Blood Glucose Arterial Blood Ionized Calcium Ur Specific [place] Vancomycin Trough Coronavirus (PCR) 12/04/20 12/05/20 12/05/20 Unknown 04:16 05:21 WBC RBC Hgb Hct Plt Count Lymph % (Auto) [place] % (Auto) Lymph # (Auto) [place] # (Auto) Baso # (Auto) Seg Neutrophils % Seg Neuts % (Manual) Lymphocytes % (Manual) Seg Neutrophils # Seg Neutrophils # Man Lymphocytes # (Manual) D-Dimer ABG pH POC ABG pCO2 86.7 H POC ABG pO2 58.0 L ABG pO2 ABG HCO3 ABG O2 Saturation ABG Base Excess ABG Hemoglobin 11.6 L ABG Oxyhemoglobin 89 L ABG Sodium 130.1 L ABG Potassium 4.9 H ABG Chloride 89.0 L ABG Glucose 254 H Oxyhemoglobin Sodium 136 L Potassium Chloride 90.0 L Carbon Dioxide 46 H* BUN 24 H Creatinine 0.3 L Glucose 226 H POC Glucose 213 H Hemoglobin A1c Lactic Acid Calcium 7.6 L Ferritin Total Bilirubin AST 46 H ALT 78 H Alkaline Phosphatase 172 H Lactate Dehydrogenase C-Reactive Protein Total Protein 6.0 L Albumin 2.8 L Triglycerides 156 H Arterial Blood Glucose 254 H Arterial Blood Ionized Calcium 4.4 L Ur Specific [place] Vancomycin Trough Coronavirus (PCR) 12/05/20 12/05/20 12/05/20 11:22 17:26 23:38 WBC RBC Hgb Hct Plt Count Lymph % (Auto) [place] % (Auto) Lymph # (Auto) [place] # (Auto) Baso # (Auto) Seg Neutrophils % Seg Neuts % (Manual) Lymphocytes % (Manual) Seg Neutrophils # Seg Neutrophils # Man Lymphocytes # (Manual) D-Dimer ABG pH POC ABG pCO2 POC ABG pO2 ABG pO2 ABG HCO3 ABG O2 Saturation ABG Base Excess ABG Hemoglobin ABG Oxyhemoglobin ABG Sodium ABG Potassium ABG Chloride ABG Glucose Oxyhemoglobin Sodium Potassium Chloride Carbon Dioxide BUN Creatinine Glucose POC Glucose 212 H 157 H 204 H Hemoglobin A1c Lactic Acid Calcium Ferritin Total Bilirubin AST ALT Alkaline Phosphatase Lactate Dehydrogenase C-Reactive Protein Total Protein Albumin Triglycerides Arterial Blood Glucose Arterial Blood Ionized Calcium Ur Specific [place] Vancomycin Trough Coronavirus (PCR) 12/06/20 12/06/20 12/06/20 04:31 04:31 05:12 WBC 17.0 H RBC 3.63 L Hgb 10.8 L D Hct 32.6 L D Plt Count Lymph % (Auto) [place] % (Auto) Lymph # (Auto) [place] # (Auto) Baso # (Auto) Seg Neutrophils % Seg Neuts % (Manual) Lymphocytes % (Manual) Seg Neutrophils # Seg Neutrophils # Man Lymphocytes # (Manual) D-Dimer ABG pH POC ABG pCO2 85.9 H POC ABG pO2 57.6 L ABG pO2 ABG HCO3 ABG O2 Saturation ABG Base Excess ABG Hemoglobin ABG Oxyhemoglobin ABG Sodium 131.2 L ABG Potassium 4.8 H ABG Chloride 86.0 L ABG Glucose 200 H Oxyhemoglobin Sodium 134 L Potassium 5.1 H Chloride 88.4 L Carbon Dioxide 47 H* BUN 23 H Creatinine 0.3 L Glucose 206 H POC Glucose Hemoglobin A1c Lactic Acid Calcium 8.3 L Ferritin Total Bilirubin AST 48 H ALT 91 H Alkaline Phosphatase 140 H Lactate Dehydrogenase C-Reactive Protein Total Protein 5.7 L Albumin 2.6 L Triglycerides Arterial Blood Glucose 200 H Arterial Blood Ionized Calcium 4.4 L Ur Specific [place] Vancomycin Trough Coronavirus (PCR) 12/06/20 12/06/20 12/06/20 05:24 12:18 16:45 WBC RBC Hgb Hct Plt Count Lymph % (Auto) [place] % (Auto) Lymph # (Auto) [place] # (Auto) Baso # (Auto) Seg Neutrophils % Seg Neuts % (Manual) Lymphocytes % (Manual) Seg Neutrophils # Seg Neutrophils # Man Lymphocytes # (Manual) D-Dimer ABG pH POC ABG pCO2 POC ABG pO2 ABG pO2 ABG HCO3 ABG O2 Saturation ABG Base Excess ABG Hemoglobin ABG Oxyhemoglobin ABG Sodium ABG Potassium ABG Chloride ABG Glucose Oxyhemoglobin Sodium Potassium Chloride Carbon Dioxide BUN Creatinine Glucose POC Glucose 186 H 187 H 150 H Hemoglobin A1c Lactic Acid Calcium Ferritin Total Bilirubin AST ALT Alkaline Phosphatase Lactate Dehydrogenase C-Reactive Protein Total Protein Albumin Triglycerides Arterial Blood Glucose Arterial Blood Ionized Calcium Ur Specific [place] Vancomycin Trough Coronavirus (PCR) 12/06/20 12/07/20 12/07/20 23:43 05:20 05:21 WBC RBC Hgb Hct Plt Count Lymph % (Auto) [place] % (Auto) Lymph # (Auto) [place] # (Auto) Baso # (Auto) Seg Neutrophils % Seg Neuts % (Manual) Lymphocytes % (Manual) Seg Neutrophils # Seg Neutrophils # Man Lymphocytes # (Manual) D-Dimer ABG pH POC ABG pCO2 POC ABG pO2 ABG pO2 48.4 L ABG HCO3 50.8 H ABG O2 Saturation 86.2 L ABG Base Excess 22.4 H ABG Hemoglobin 11.0 L ABG Oxyhemoglobin ABG Sodium ABG Potassium ABG Chloride ABG Glucose Oxyhemoglobin 84.0 L Sodium Potassium Chloride Carbon Dioxide BUN Creatinine Glucose POC Glucose 153 H 107 H Hemoglobin A1c Lactic Acid Calcium Ferritin Total Bilirubin AST ALT Alkaline Phosphatase Lactate Dehydrogenase C-Reactive Protein Total Protein Albumin Triglycerides Arterial Blood Glucose Arterial Blood Ionized Calcium Ur Specific [place] Vancomycin Trough Coronavirus (PCR) 12/07/20 12/07/20 12/07/20 13:20 14:28 17:35 WBC RBC Hgb Hct Plt Count Lymph % (Auto) [place] % (Auto) Lymph # (Auto) [place] # (Auto) Baso # (Auto) Seg Neutrophils % Seg Neuts % (Manual) Lymphocytes % (Manual) Seg Neutrophils # Seg Neutrophils # Man Lymphocytes # (Manual) D-Dimer ABG pH POC ABG pCO2 74.1 H POC ABG pO2 68.5 L ABG pO2 ABG HCO3 ABG O2 Saturation ABG Base Excess ABG Hemoglobin 10.7 L ABG Oxyhemoglobin 91.9 L ABG Sodium 132.2 L ABG Potassium 4.7 H ABG Chloride 88.0 L ABG Glucose 138 H Oxyhemoglobin Sodium 134 L Potassium Chloride 87.4 L Carbon Dioxide 49 H* BUN Creatinine 0.2 L Glucose 132 H POC Glucose 176 H Hemoglobin A1c Lactic Acid Calcium 7.7 L Ferritin Total Bilirubin AST ALT Alkaline Phosphatase Lactate Dehydrogenase C-Reactive Protein Total Protein Albumin Triglycerides Arterial Blood Glucose 138 H Arterial Blood Ionized Calcium 4.0 L Ur Specific [place] Vancomycin Trough Coronavirus (PCR) 12/07/20 12/08/20 12/08/20 23:44 04:12 05:29 WBC RBC Hgb Hct Plt Count Lymph % (Auto) [place] % (Auto) Lymph # (Auto) [place] # (Auto) Baso # (Auto) Seg Neutrophils % Seg Neuts % (Manual) Lymphocytes % (Manual) Seg Neutrophils # Seg Neutrophils # Man Lymphocytes # (Manual) D-Dimer ABG pH POC ABG pCO2 POC ABG pO2 ABG pO2 69.7 L ABG HCO3 50.1 H ABG O2 Saturation ABG Base Excess 21.6 H ABG Hemoglobin 10.9 L ABG Oxyhemoglobin ABG Sodium ABG Potassium ABG Chloride ABG Glucose Oxyhemoglobin 93.2 L Sodium Potassium Chloride Carbon Dioxide BUN Creatinine Glucose POC Glucose 143 H 143 H Hemoglobin A1c Lactic Acid Calcium Ferritin Total Bilirubin AST ALT Alkaline Phosphatase Lactate Dehydrogenase C-Reactive Protein Total Protein Albumin Triglycerides Arterial Blood Glucose Arterial Blood Ionized Calcium Ur Specific [place] Vancomycin Trough Coronavirus (PCR) 12/08/20 12/08/20 12/09/20 06:10 06:10 04:24 WBC 12.0 H RBC 3.18 L Hgb 9.5 L Hct 28.9 L Plt Count Lymph % (Auto) [place] % (Auto) Lymph # (Auto) [place] # (Auto) Baso # (Auto) Seg Neutrophils % Seg Neuts % (Manual) 95.0 H Lymphocytes % (Manual) 3.0 L Seg Neutrophils # Seg Neutrophils # Man 11.4 H Lymphocytes # (Manual) 0.4 L D-Dimer ABG pH POC ABG pCO2 76.2 H POC ABG pO2 52.8 L ABG pO2 ABG HCO3 ABG O2 Saturation ABG Base Excess ABG Hemoglobin 11.7 L ABG Oxyhemoglobin ABG Sodium 132.0 L ABG Potassium ABG Chloride 87.0 L ABG Glucose 118 H Oxyhemoglobin Sodium 133 L Potassium Chloride 86.3 L Carbon Dioxide 53 H* BUN Creatinine 0.2 L Glucose 156 H POC Glucose Hemoglobin A1c Lactic Acid Calcium 7.6 L Ferritin Total Bilirubin AST ALT Alkaline Phosphatase Lactate Dehydrogenase C-Reactive Protein Total Protein Albumin Triglycerides Arterial Blood Glucose 118 H Arterial Blood Ionized Calcium 4.2 L Ur Specific [place] Vancomycin Trough Coronavirus (PCR) 12/09/20 12/09/20 12/09/20 05:44 06:40 06:40 WBC 13.5 H RBC 3.28 L Hgb 9.7 L Hct 29.9 L Plt Count Lymph % (Auto) [place] % (Auto) Lymph # (Auto) [place] # (Auto) Baso # (Auto) Seg Neutrophils % Seg Neuts % (Manual) Lymphocytes % (Manual) Seg Neutrophils # Seg Neutrophils # Man Lymphocytes # (Manual) D-Dimer ABG pH POC ABG pCO2 POC ABG pO2 ABG pO2 ABG HCO3 ABG O2 Saturation ABG Base Excess ABG Hemoglobin ABG Oxyhemoglobin ABG Sodium ABG Potassium ABG Chloride ABG Glucose Oxyhemoglobin Sodium 135 L Potassium Chloride 89.5 L Carbon Dioxide 52 H* BUN Creatinine 0.3 L Glucose 114 H POC Glucose 117 H Hemoglobin A1c Lactic Acid Calcium 7.6 L Ferritin Total Bilirubin AST ALT Alkaline Phosphatase Lactate Dehydrogenase C-Reactive Protein Total Protein Albumin Triglycerides Arterial Blood Glucose Arterial Blood Ionized Calcium Ur Specific [place] Vancomycin Trough Coronavirus (PCR)
--- NOTE | 2020-12-09 14:22 | XRay Report ---
CHEST 1 VIEW INDICATION / CLINICAL INFORMATION: Fever and worsening hypoxemia, COVID positive. COMPARISON: 12/07/2020 FINDINGS: SUPPORT DEVICES: Endotracheal tube, nasogastric tube, bilateral pleural drainage tubes HEART / MEDIASTINUM: Pneumomediastinum LUNGS / PLEURA: Mild bilateral airspace disease, subcutaneous emphysema No pneumothorax. ADDITIONAL FINDINGS: No significant additional findings. IMPRESSION: Mild bilateral airspace disease, subcutaneous emphysema and pneumomediastinum are unchanged from 12/07. Signer Name: Fady Gonzalez MD FACR Signed: 12/09/2020 2:18 PM Workstation Name: [id number]
--- NOTE | 2020-12-09 15:34 | Progress Note ---
Assessment and Plan Cultures: SARS CoV-2 PCR: positive Blood culture: No growth 11/21/2020 tracheal aspirate culture: MRSA 12/09/2020 blood culture: Pending A/P: 59-year-old male: #Bilateral pneumonia: secondary to COVID-19. Admission labs showed leukocytosis, D-dimer greater than 10,000, ferritin 672, CRP 19.8, LDH 663, creatinine 0.6, procalcitonin 0.51. Completed 5 days of abx, remdesivir. #MRSA on ET aspirate culture, ?colonization v/s true disease, difficult to dif ferentiate. S/P abx. #Right-sided pneumothorax and pneumomediastinum: Underwent placement of right- sided chest tube, likely secondary to COVID-19. #Acute hypoxic respiratory failure: Failed BiPAP. Remains on the vent. #Elevated d-dimer: DVT scan negative. Unable to get CTA Chest due to patients unstable clinical status #Transaminitis: secondary to COVID-19. Recs: -continue off antibiotics at this time -Continue prophylactic anticoagulation based on d-dimer per hospital protocol -guarded prognosis -Follow-up repeat blood cultures Rm Carrillo MD [facility] ([facility] O: [phone] F: [phone] Subjective Date of service: 12/09/20 Principal diagnosis: COVID-19 Interval history: Afebrile, white count 13.5. Objective - Exam Narrative Exam: Physical exam deferred due to PPE conservation strategy. Please refer to primary team's note. - Constitutional Vitals: Vital Signs Temp Pulse Resp BP Pulse Ox 98.9 F 99 H 31 H 146/83 91 12/09/20 12:00 12/09/20 14:00 12/09/20 14:00 12/09/20 14:00 12/09/20 14:00 Temperature -Last 24 Hours Temperature 98.9 F Temperature 98.6 F Temperature 99.8 F Temperature 100.1 F Temperature 99.5 F Temperature 98.4 F - Labs CBC & Chem 7: 12/09/20 06:40 12/09/20 06:40 Labs: Abnormal lab results 12/09/20 12/09/20 12/09/20 Range/Units 04:24 05:44 06:40 WBC 13.5 H (4.5-11.0) K/mm3 RBC 3.28 L (3.65-5.03) M/mm3 Hgb 9.7 L (11.8-15.2) gm/dl Hct 29.9 L (35.5-45.6) % POC ABG pCO2 76.2 H (32.0-48.0) mmHg POC ABG pO2 52.8 L (83-108) mmHg ABG Hemoglobin 11.7 L (12.0-17.5) ABG Sodium 132.0 L (136.0-145.0) mmol/L ABG Chloride 87.0 L (98-107) mmol/L ABG Glucose 118 H (65-95) mg/dL Sodium (137-145) mmol/L Chloride (98-107) mmol/L Carbon Dioxide (22-30) mmol/L Creatinine (0.8-1.3) mg/dL Glucose (75-100) mg/dL POC Glucose 117 H (70-105) mg/dL Calcium (8.4-10.2) mg/dL Arterial Blood Glucose 118 H (65-95) mg/dL Arterial Blood Ionized Calcium 4.2 L (4.6-5.3) mg/dL 12/09/20 Range/Units 06:40 WBC (4.5-11.0) K/mm3 RBC (3.65-5.03) M/mm3 Hgb (11.8-15.2) gm/dl Hct (35.5-45.6) % POC ABG pCO2 (32.0-48.0) mmHg POC ABG pO2 (83-108) mmHg ABG Hemoglobin (12.0-17.5) ABG Sodium (136.0-145.0) mmol/L ABG Chloride (98-107) mmol/L ABG Glucose (65-95) mg/dL Sodium 135 L (137-145) mmol/L Chloride 89.5 L (98-107) mmol/L Carbon Dioxide 52 H* (22-30) mmol/L Creatinine 0.3 L (0.8-1.3) mg/dL Glucose 114 H (75-100) mg/dL POC Glucose (70-105) mg/dL Calcium 7.6 L (8.4-10.2) mg/dL Arterial Blood Glucose (65-95) mg/dL Arterial Blood Ionized Calcium (4.6-5.3) mg/dL
[2020-12-09] MEDS: NORepinephrine/NS 4 MG-250 ML 4 MG/250 ML BAG IV SCH (19:52)
[2020-12-09] MEDS: ENOXAPARIN 40 MG/0.4 ML INJ SUB-Q SCH (21:24)
[2020-12-10] MEDS: INSULIN LISPRO 100 UNIT/ML SUB-Q SCH ×5 (00:50→23:43)
[2020-12-10] MEDS: MIDAZOLAM 100 MG in SODIUM CHLORIDE 0.9% 80 ML IV SCH ×2 (03:51→23:50)
[2020-12-10] MEDS: fentaNYL 100 MCG/2 ML INJ IV PRN (04:18)
[2020-12-10] MEDS: DEXTROSE 50% IN WATER (25GM) 50 ML SYRINGE IV PRN (05:24)
[2020-12-10] MEDS: fentaNYL DRIP Premix 2,000 MCG/100 ML BAG IV SCH ×3 (06:10→20:33)
[2020-12-10] MEDS: INSULIN GLARGINE 100 UNITS/ML SUB-Q SCH (08:03)
--- NOTE | 2020-12-10 08:36 | Progress Note ---
Assessment and Plan Assessment and plan: COVID-19 test positive; 11/16/2020 --Acute hypoxic hypercapnic respiratory failure ; requiring intubation and mechanical ventilation Continue ventilatory support, pulmonary critical following Wean as tolerated and extubate, nebulizers IV steroids ID and pulmonary critical following Home oxygen evaluation when patient is stable --Bilateral pneumothorax; status post bilateral chest tube placement Mild improvement, chest tubes in place ,continue supportive care, surgery pulmonary following --Pneumomediastinum, subcutaneous emphysema, Continue supportive care, surgery following --Leukocytosis --Bilateral Covid pneumonia Management per protocols ID pulmonary following --Type II Diabetes Mellitus Accu-Chek sliding scale coverage ADA diet Long-acting insulin as needed --Sepsis secondary to MRSA pneumonia Continue vancomycin Follow cultures 12/05: Patient continues on full ventilatory support per internal controls analyst PEEP remains at 18. Still with hypercapnic respiratory failure. FiO2 down to 60% this morning. Chest tube to suction still weaning off steroids in the deliberation ongoing for possible a third chest tube as last documentation by surgery shows no plan for it at this time. Continue to manage insulin for better blood sugar control. 12/06:weaned down to 60%, continue supportive care, unable to wean, 12/07; patient remains intubated on ventilatory support, chest tubes in place trach and PEG when patient's Covid test is negative,Per surgery. 12/08; Patient remains intubated remains with hypercapnia and hypoxia. Chest tube still remain in place. He is off antibiotics at this time. Continue steroids which is likely resultant to the leukocytosis. Digital Marketing Specialist and surgeon following ID input is noted. Prognosis remains guarded to poor Patient is critically ill with very poor prognosis, awaiting trach and PEG when COVID-19 test turns negative Plan discussed with nursing staff. Digital Marketing Specialist have discussed with the patient's brother. No new updates at this time. The high probability of a clinically significant, sudden or life threatening deterioration of the [pulmonary] system(s) required my full and direct attention, intervention and personal management. The aggregate critical care time was [32] minutes. This time is in addition to time spent performing reported procedures but includes the following: [X] Data Review and interpretation [X] Patient assessment and monitoring of vital signs [X] Documentation [X] Medication orders and management Plan of care reviewed with the patient's nurse and the case management History Interval history: I have seen and examined the patient at the bedside Patient's chart and medications reviewed Strict isolation precautions and PPE protocols followed per COVID-19 guidelines Patient remains intubated vent dependent Awaiting trach and PEG No new overnight events reported by the nursing Vital signs noted Hospitalist Physical - Constitutional Vitals: Temp Pulse Resp BP Pulse Ox 98.7 F 100 H 30 H 129/70 93 12/10/20 07:00 12/10/20 08:21 12/10/20 06:00 12/10/20 08:21 12/10/20 08:21 General appearance: Present: mild distress, well-nourished, obese - EENT Eyes: Present: PERRL, EOM intact - Neck Neck: Present: supple, normal ROM - Respiratory Respiratory effort: normal Respiratory: bilateral: diminished, negative: rales, rhonchi, wheezing - Cardiovascular Rhythm: regular Heart Sounds: Present: S1 & S2 - Extremities Extremities: no ischemia, No edema - Abdominal General gastrointestinal: soft, non-tender, non-distended, normal bowel sounds - Integumentary Integumentary: Present: clear, warm - Psychiatric Psychiatric: other (Intubated vent dependent) - Neurologic Neurologic: other (Intubated vent dependent) HEART Score - HEART Score Troponin: Troponin T < 0.010 ng/mL (0.00-0.029) 11/22/20 Unknown Results - Labs CBC & Chem 7: 12/09/20 06:40 12/09/20 06:40 Labs: Laboratory Last Values WBC 13.5 K/mm3 (4.5-11.0) H 12/09/20 06:40 RBC 3.28 M/mm3 (3.65-5.03) L 12/09/20 06:40 Hgb 9.7 gm/dl (11.8-15.2) L 12/09/20 06:40 Hct 29.9 % (35.5-45.6) L 12/09/20 06:40 MCV 91 fl (84-94) 12/09/20 06:40 MCH 30 pg (28-32) 12/09/20 06:40 MCHC 32 % (32-34) 12/09/20 06:40 RDW 14.8 % (13.2-15.2) 12/09/20 06:40 Plt Count 165 K/mm3 (140-440) 12/09/20 06:40 Lymph % (Auto) 2.0 % (13.4-35.0) L 11/27/20 06:25 Starke % (Auto) 5.2 % (0.0-7.3) 11/27/20 06:25 Eos % (Auto) 0.0 % (0.0-4.3) 11/27/20 06:25 Baso % (Auto) 0.1 % (0.0-1.8) 11/27/20 06:25 Lymph # (Auto) 0.3 K/mm3 (1.2-5.4) L 11/27/20 06:25 Starke # (Auto) 0.7 K/mm3 (0.0-0.8) 11/27/20 06:25 Eos # (Auto) 0.0 K/mm3 (0.0-0.4) 11/27/20 06:25 Baso # (Auto) 0.0 K/mm3 (0.0-0.1) 11/27/20 06:25 Add Manual Diff Complete 12/08/20 06:10 Total Counted 100 12/08/20 06:10 Seg Neutrophils % Cutting Machine Operator Helper 12/08/20 06:10 Seg Neuts % (Manual) 95.0 % (40.0-70.0) H 12/08/20 06:10 Band Neutrophils % 2.0 % 12/02/20 02:14 Lymphocytes % (Manual) 3.0 % (13.4-35.0) L 12/08/20 06:10 Monocytes % (Manual) 2.0 % (0.0-7.3) 12/08/20 06:10 Nucleated RBC % Not Reportable 12/08/20 06:10 Seg Neutrophils # 12.7 K/mm3 (1.8-7.7) H 11/27/20 06:25 Seg Neutrophils # Man 11.4 K/mm3 (1.8-7.7) H 12/08/20 06:10 Band Neutrophils # 0.0 K/mm3 12/08/20 06:10 Lymphocytes # (Manual) 0.4 K/mm3 (1.2-5.4) L 12/08/20 06:10 Abs React Lymphs (Man) 0.0 K/mm3 12/08/20 06:10 Monocytes # (Manual) 0.2 K/mm3 (0.0-0.8) 12/08/20 06:10 Eosinophils # (Manual) 0.0 K/mm3 (0.0-0.4) 12/08/20 06:10 Basophils # (Manual) 0.0 K/mm3 (0.0-0.1) 12/08/20 06:10 Metamyelocytes # 0.0 K/mm3 12/08/20 06:10 Myelocytes # 0.0 K/mm3 12/08/20 06:10 Promyelocytes # 0.0 K/mm3 12/08/20 06:10 Blast Cells # 0.0 K/mm3 12/08/20 06:10 WBC Morphology Not Reportable 12/08/20 06:10 Hypersegmented Neuts Not Reportable 12/08/20 06:10 Hyposegmented Neuts Not Reportable 12/08/20 06:10 Hypogranular Neuts Not Reportable 12/08/20 06:10 Smudge Cells Not Reportable 12/08/20 06:10 Toxic Granulation Not Reportable 12/08/20 06:10 Toxic Vacuolation Not Reportable 12/08/20 06:10 Dohle Bodies Not Reportable 12/08/20 06:10 Pelger-Huet Anomaly Not Reportable 12/08/20 06:10 Tony Rods Not Reportable 12/08/20 06:10 Platelet Estimate Consistent w auto 12/08/20 06:10 Clumped Platelets Not Reportable 12/08/20 06:10 Plt Clumps, EDTA Not Reportable 12/08/20 06:10 Large Platelets Not Reportable 12/08/20 06:10 Giant Platelets Not Reportable 12/08/20 06:10 Platelet Satelliting Not Reportable 12/08/20 06:10 Plt Morphology Comment Not Reportable 12/08/20 06:10 RBC Morphology Not Reportable 12/08/20 06:10 Dimorphic RBCs Not Reportable 12/08/20 06:10 Polychromasia Not Reportable 12/08/20 06:10 Hypochromasia 1+ 12/08/20 06:10 Poikilocytosis Not Reportable 12/08/20 06:10 Anisocytosis Not Reportable 12/08/20 06:10 Microcytosis Not Reportable 12/08/20 06:10 Macrocytosis Not Reportable 12/08/20 06:10 Spherocytes Not Reportable 12/08/20 06:10 Pappenheimer Bodies Not Reportable 12/08/20 06:10 Sickle Cells Not Reportable 12/08/20 06:10 Target Cells Not Reportable 12/08/20 06:10 Tear Drop Cells Not Reportable 12/08/20 06:10 Ovalocytes Not Reportable 12/08/20 06:10 Stomatocytes 1+ 12/03/20 04:35 Helmet Cells Not Reportable 12/08/20 06:10 Cabrera-Sabina Bodies Not Reportable 12/08/20 06:10 Windber Rings Not Reportable 12/08/20 06:10 [place] Cells Not Reportable 12/08/20 06:10 Bite Cells Not Reportable 12/08/20 06:10 Crenated Cell Not Reportable 12/08/20 06:10 Elliptocytes Not Reportable 12/08/20 06:10 Acanthocytes (Spur) Not Reportable 12/08/20 06:10 Rouleaux Not Reportable 12/08/20 06:10 Hemoglobin C Crystals Not Reportable 12/08/20 06:10 Schistocytes Not Reportable 12/08/20 06:10 Malaria parasites Not Reportable 12/08/20 06:10 Yovani Bodies Not Reportable 12/08/20 06:10 Hem Pathologist Commnt No 12/08/20 06:10 D-Dimer 926.11 ng/mlDDU (0-234) H 11/26/20 06:04 ABG pH 7.417 (7.320-7.450) 12/10/20 04:28 POC ABG pCO2 76.9 mmHg (32.0-48.0) H 12/10/20 04:28 ABG pCO2 81.3 mm Hg 12/08/20 04:12 POC ABG pO2 60.2 mmHg (83-108) L 12/10/20 04:28 ABG pO2 69.7 mm Hg (80.0-90.0) L 12/08/20 04:12 POC ABG HCO3 48.4 12/10/20 04:28 ABG HCO3 50.1 mmol/L (20.0-26.0) H 12/08/20 04:12 ABG O2 Saturation 95.4 % (95.0-99.0) 12/08/20 04:12 ABG O2 Content 13.0 (0.0-44) 12/07/20 05:20 POC ABG Base Excess 20.6 12/10/20 04:28 ABG Base Excess 21.6 mmol/L (-2.0-3.0) H 12/08/20 04:12 ABG Hemoglobin 10 (12.0-17.5) L 12/10/20 04:28 ABG Oxyhemoglobin 89.7 (94-98) L 12/10/20 04:28 ABG Carboxyhemoglobin 2.0 % (0.0-5.0) 12/08/20 04:12 ABG Methemoglobin 0.3 (0.0-1.5) 12/10/20 04:28 ABG Sodium 133.8 mmol/L (136.0-145.0) L 12/10/20 04:28 ABG Potassium 3.9 mmol/L (3.40-4.50) 12/10/20 04:28 ABG Chloride 91.0 mmol/L (98-107) L 12/10/20 04:28 ABG Glucose 57 mg/dL (65-95) L 12/10/20 04:28 Oxyhemoglobin 93.2 % (95.0-99.0) L 12/08/20 04:12 Carboxyhemoglobin 0.4 (0.5-1.5) L 12/10/20 04:28 FiO2 90 12/10/20 04:28 Sodium 135 mmol/L (137-145) L 12/09/20 06:40 Potassium 4.3 mmol/L (3.6-5.0) 12/09/20 06:40 Chloride 89.5 mmol/L (98-107) L 12/09/20 06:40 Carbon Dioxide 52 mmol/L (22-30) H* 12/09/20 06:40 Anion Gap -2 mmol/L 12/09/20 06:40 BUN 14 mg/dL (9-20) 12/09/20 06:40 Creatinine 0.3 mg/dL (0.8-1.3) L 12/09/20 06:40 Estimated GFR > 60 ml/min 12/09/20 06:40 BUN/Creatinine Ratio 47 % 12/09/20 06:40 Glucose 114 mg/dL (75-100) H 12/09/20 06:40 POC Glucose 138 mg/dL (70-105) H 12/10/20 05:41 Hemoglobin A1c 11.7 % (4-6) H 11/16/20 05:29 Lactic Acid 2.60 mmol/L (0.7-2.0) H* 11/16/20 05:29 Calcium 7.6 mg/dL (8.4-10.2) L 12/09/20 06:40 Phosphorus 2.90 mg/dL (2.5-4.5) 12/04/20 Unknown Magnesium 1.90 mg/dL (1.7-2.3) 12/04/20 Unknown Ferritin 778.8 ng/mL (30.0-300.0) H 11/26/20 04:00 Total Bilirubin 0.30 mg/dL (0.1-1.2) 12/06/20 04:31 AST 48 units/L (5-40) H 12/06/20 04:31 ALT 91 units/L (7-56) H 12/06/20 04:31 Alkaline Phosphatase 140 units/L (35-129) H 12/06/20 04:31 Lactate Dehydrogenase 288 units/L (91-180) H 11/26/20 04:00 Troponin T < 0.010 ng/mL (0.00-0.029) 11/22/20 Unknown C-Reactive Protein 1.40 mg/dL (0.00-1.30) H 11/26/20 04:00 NT-Pro-B Natriuret Pep 107.2 pg/mL (0-900) 11/17/20 10:21 Total Protein 5.7 g/dL (6.3-8.2) L 12/06/20 04:31 Albumin 2.6 g/dL (3.9-5) L 12/06/20 04:31 Albumin/Globulin Ratio 0.8 % 12/06/20 04:31 Triglycerides 109 mg/dL (2-149) 12/08/20 06:10 Procalcitonin 0.51 ng/mL (<0.15) 11/15/20 10:39 Arterial Blood Glucose 57 mg/dL (65-95) L 12/10/20 04:28 Arterial Blood Ionized Calcium 4.2 mg/dL (4.6-5.3) L 12/10/20 04:28 Urine Color Faustina (Yellow) 11/16/20 01:45 Urine Turbidity Slightly-cloudy (Clear) 11/16/20 01:45 Urine pH 6.0 (5.0-7.0) 11/16/20 01:45 Ur Specific [place] 1.037 (1.003-1.030) H 11/16/20 01:45 Urine Protein 30 mg/dl mg/dL (Negative) 11/16/20 01:45 Urine Glucose (UA) >=500 mg/dL (Negative) 11/16/20 01:45 Urine Ketones 20 mg/dL (Negative) 11/16/20 01:45 Urine Blood Neg (Negative) 11/16/20 01:45 Urine Nitrite Neg (Negative) 11/16/20 01:45 Urine Bilirubin Neg (Negative) 11/16/20 01:45 Urine Urobilinogen 2.0 mg/dL (<2.0) 11/16/20 01:45 Ur Leukocyte Esterase Neg (Negative) 11/16/20 01:45 Urine WBC (Auto) 2.0 /HPF (0.0-6.0) 11/16/20 01:45 Urine RBC (Auto) 1.0 /HPF (0.0-6.0) 11/16/20 01:45 Urine Bacteria (Auto) 1+ /HPF (Negative) 11/16/20 01:45 Urine Mucus 3+ /HPF 11/16/20 01:45 Vancomycin Trough 4.0 ug/mL (5.0-20.0) L 11/29/20 15:40 Coronavirus (PCR) Positive (Negative) A 11/16/20 Unknown Microbiology: Microbiology 12/09/20 11:37 Peripheral/Venous Blood Culture - Preliminary Culture in Progress 12/09/20 11:37 Peripheral/Venous Blood Culture - Preliminary Culture in Progress - Diagnostic Impressions Diagnostic Impressions: Echocardiogram 11/16/20 10:34 Transthoracic Echocardiogram Indication: Shortness of breath-COVID BP: 108/77 HR: 92 Conclusions *Global left ventricular systolic function is normal. *The estimated ejection fraction is 60-65%. *Mild to moderate concentric left ventricular hypertrophy is observed. *There is trace of mitral regurgitation. *There is mild to moderate tricuspid regurgitation. *There is evidence of mild pulmonary hypertension. *The right ventricular systolic pressure is calculated at 31 mmHg. Findings Left Ventricle: The left ventricular chamber size is normal. Mild to moderate concentric left ventricular hypertrophy is observed. Global left ventricular systolic function is normal. The estimated ejection fraction is 60-65%. Left Atrium: The left atrial chamber size is normal. Right Ventricle: The right ventricular cavity size is normal. The right ventricular global systolic function is normal. Right Atrium: The right atrial cavity size is normal. Aortic Valve: The aortic valve is trileaflet. There is no evidence of aortic regurgitation. There is no evidence of aortic stenosis. Mitral Valve: The mitral valve leaflets appear normal. There is trace of mitral regurgitation. There is no evidence of mitral stenosis. Tricuspid Valve: The tricuspid valve leaflets are normal. There is mild to moderate tricuspid regurgitation. The right ventricular systolic pressure is calculated at 31 mmHg. There is evidence of mild pulmonary hypertension. Pulmonic Valve: There is trace pulmonic regurgitation. Pericardium: There is no pericardial effusion. Aorta: There is no dilatation of the ascending aorta. There is no dilatation of the aortic root. Venous: The inferior vena cava appears normal in size. Measurements Chambers 2D Name Value Normal Range IVSd (2D) 0.81 cm (0.6 - 1.1) LVPWd (2D) 0.79 cm (0.6 - 1.1) LVIDd (2D) 4.22 cm (3.7 - 5.6) LVIDs (2D) 3.1 cm (2 - 3.8) LV FS (2D) 26.71 % - EF Teichholz (2D) 52.55 % - Ao root diameter (2D) 3.34 cm (2 - 3.7) Volumes/Mass Name Value Normal Range LA ESV SP 4CH (A/L) 10.87 ml - LA ESV SP 2CH (A/L) 18.74 ml - LA ESV BP (A/L) 16.38 ml - LA ESV BP (A/L) index 8.62 ml/m2 - LA ESV SP 4CH (MOD) 10.32 ml - LA ESV SP 2CH (MOD) 17.66 ml - LA ESV BP (MOD) 15.12 ml - LA ESV BP (MOD) index 7.96 ml/m2 - Diastolic/Systolic Function Name Value Normal Range MV E-wave Vmax 0.76 m/sec - MV deceleration time 133.63 msec - MV A-wave Vmax 1.1 m/sec - MV E:A ratio 0.69 ratio - Aortic Valve Name Value Normal Range AV Vmax 1.44 m/sec - AV VTI 22.94 cm - AV peak gradient 8.33 mmHg - AV mean gradient 4.73 mmHg - LVOT diameter 2.2 cm - LVOT Vmax 1.04 m/sec - LVOT VTI 18.88 cm - LVOT peak gradient 4.34 mmHg - LVOT mean gradient 2.31 mmHg - SV LVOT 72.05 ml - EVANGELISTA (continuity Vmax) 2.75 cm2 - EVANGELISTA (continuity VTI) 3.14 cm2 - Tricuspid Valve Name Value Normal Range TR Vmax 2.64 m/sec - TR peak gradient 28 mmHg - RAP 3 mmHg - RVSP 31 mmHg - Gupta/IV: Voiding Method Indwelling Catheter IV Catheter Type [Left Peripheral IV Antecubital] Active Medications - Current Medications Current Medications: Generic Name Dose Route Start Last Admin Trade Name Freq PRN Reason Stop Dose Admin Acetaminophen 650 mg 11/15/20 23:55 12/09/20 00:14 Acetaminophen 325 Mg Tab PO 650 mg Q4H PRN Administration Pain MILD(1-3)/Fever >100.5/BUTTS Lipase/Protease/Amylase 1 each 11/23/20 11:53 12/05/20 23:45 Lipase 10,500/Protease 25,000/Amylase 43,750 (Units) Dr Slater FEEDTUBE 1 each PRN PRN Administration For Clogged Feeding Tube Dextrose 25 ml 12/10/20 05:21 12/10/20 05:24 Dextrose 50% In Water (25gm) 50 Ml Syringe IV 25 ml Q30MIN PRN Administration Hypoglycemia Protocol Enoxaparin Sodium 40 mg 12/03/20 22:00 12/09/20 21:24 Enoxaparin 40 Mg/0.4 Ml Inj SUB-Q 40 mg QDAY@2200 RAEANN Administration Famotidine 20 mg 11/22/20 22:00 12/09/20 21:24 Famotidine 20 Mg/2 Ml Inj IV 20 mg BID RAEANN Administration Fentanyl 50 mcg 11/21/20 21:53 12/10/20 04:18 Fentanyl 100 Mcg/2 Ml Inj IV 50 mcg Q10MIN PRN Administration ANALGESIA Hydrophilic Ointment 1 applic 11/21/20 21:53 11/30/20 21:33 Lip Therapy Vaseline TP 1 applic Q2HR PRN Administration Dry Lips Fentanyl Citrate 2,000 mcg in 100 mls @ 3.625 mls/hr 11/21/20 22:00 12/10/20 06:10 Fentanyl Drip Premix IV 4 mcg/kg/hr TITR RAEANN 14.5 mls/hr Administration Protocol 1 MCG/KG/HR Midazolam HCl 100 mg/ Sodium 100 mls @ 2 mls/hr 11/21/20 22:00 12/10/20 03:51 Chloride IV 5 mg/hr TITR RAEANN 5 mls/hr Administration Protocol 2 MG/HR Norepinephrine 4 mg in 250 mls @ 7.5 mls/hr 11/22/20 17:00 12/10/20 04:19 Levophed Drip 4 Mg/Ns 250 Ml IV 4 mcg/min TITR RAEANN 15 mls/hr Titration Protocol 2 MCG/MIN Propofol 1,000 mg in 100 mls @ 2.175 mls/hr 11/27/20 12:00 12/10/20 06:11 Diprivan 10 Mg/Ml IV 25 mcg/kg/min TITR RAEANN 10.875 mls/hr Administration Protocol 5 MCG/KG/MIN Insulin Human Lispro 0 unit 11/22/20 06:00 12/10/20 05:20 Insulin Lispro 100 Unit/Ml SUB-Q Not Given Q6HR [facility] Protocol Methylprednisolone Sodium Succinate 20 mg 12/08/20 22:00 12/09/20 21:25 Methylprednisolone Sod Succinate 40 Mg/1 Ml Inj IV 20 mg Q12HR RAEANN Administration Metoclopramide HCl 10 mg 11/15/20 23:55 Metoclopramide 10 Mg/2 Ml Inj IV Q6H PRN Nausea And Vomiting Midazolam HCl 2 mg 11/21/20 21:53 12/03/20 20:13 Midazolam 2 Mg/2 Ml Inj IV 2 mg Q10MIN PRN Administration Sedation Multi-Ingred Cream/Lotion/Oil/Oint 1 applic 11/21/20 21:53 Mineral Oil/Petrolatum, White Ophth Oint 3.5 Gm OU Q4HR PRN Dry Eye(s) Ondansetron HCl 4 mg 11/15/20 23:55 Ondansetron 4 Mg/2 Ml Inj IV Q8H PRN Nausea And Vomiting Senna/Docusate Sodium 2 tab 12/03/20 13:00 12/09/20 21:24 Sennosides/Docusate Sodium 8.6/50 Mg Tab PO 2 tab BID RAEANN Administration Simple Syrup 15 ml 11/23/20 11:53 Simple Syrup 15 Ml FEEDTUBE PRN PRN Hypoglycemia Simple Syrup 30 ml 11/23/20 11:53 Simple Syrup 15 Ml FEEDTUBE PRN PRN Hypoglycemia Sodium Bicarbonate 325 mg 11/23/20 11:53 12/05/20 23:46 Sodium Bicarbonate 325 Mg Tab FEEDTUBE 325 mg PRN PRN Administration For Clogged Feeding Tube Sodium Chloride 10 ml 11/16/20 10:00 12/09/20 21:24 Sodium Chloride 0.9% 10 Ml Flush Syringe IV 10 ml BID RAEANN Administration Sodium Chloride 10 ml 11/15/20 23:55 12/03/20 00:21 Sodium Chloride 0.9% 10 Ml Flush Syringe IV 10 ml PRN PRN Administration LINE FLUSH Nutrition/Malnutrition Assess - Dietary Evaluation Nutrition/Malnutrition Findings: Nutrition Notes Start: 11/20/20 12:03 Freq: Status: Active Protocol: Document 12/09/20 11:11 AL (Rec: 12/09/20 11:25 AL [id number]) Co-Sign 12/09/20 11:11 LP Nutrition Notes Initial or Follow up Reassessment Current Diagnosis Diabetes,Sepsis,Respiratory Failure Other Pertinent Diagnosis Bilat pneu, COVID-19 (+) Current Diet Glucerna 1.2 at 60 ml/hr Labs/Tests Na 134 Cr .3 Pertinent Medications Propofol at 13.05 ml/hr (344 kcal) Solumedrol Senokot S Height 5 ft 6 in Weight 85.4 kg Usual Body Weight 80.5 kg [place] Body Weight (kg) 64.54 BMI 30.4 Weight Status Overweight Subjective/Other Information F/U for TF tolerance. Pt tolerating TF at 60 ml/hr ( goal rate) Percent of energy/protein needs met: 100%/100% Burn Absent Trauma Absent GI Symptoms Last BM Difficulty In Swallowing,Chewing Food Allergy No Current % PO Negligible Minimum of two criteria Yes Energy Intake (severe) < or equal to 50% Estimated Energy Requirement > or equal to 5 days Interpretation of Weight Loss (severe) >2% in 1 week Fluid Accumulation Moderate to Severe (severe) #3 Nutrition Diagnosis Inadequate oral intake Diagnosis Progress(for reassessment Continues documentation) #2 Nutrition Diagnosis Malnutrition Diagnosis Progress(for reassessment Continues documentation) #1 Nutrition Diagnosis Unintended weight loss Diagnosis Progress(for reassessment Continues documentation) Is patient on ventilator? Yes Is Patient Ambulatory and/or Out of Bed No REE-([place]-. Jenv-confined to bed) 1944.648 Kcal/Kg value to use for calculation 21 Approximate Energy Requirements Using 1793 kcal/Kg Calculation Used for Recommendations Kcal/kg Additional Notes Protein: 87-145 g/day (1.2-2g/ kg) Fluid: 1ml/kcal or per MD Nutrition Intervention Change Diet Order: Continue TF Nutrition Support: Glucerna 1.2 at 60 ml/hr. Flush 100 ml q4h Kcal 1,728 Protein (gm) 86 Fluid (mL) 1,159 Goal #1 TF tolerance Goal #2 Meet at least 75% of energy and protein needs via TF Anticipated Discharge Needs: Unknown at this time Follow-Up By: 12/16/20 Additional Comments FU for TF tolerance
[2020-12-10] MEDS: methylPREDNISolone Sod Succinate 40 MG/1 ML INJ IV SCH ×2 (10:01→21:08)
[2020-12-10] MEDS: SENNOSIDES/DOCUSATE SODIUM 8.6/50 MG TAB PO SCH ×2 (10:01→21:08)
[2020-12-10] MEDS: FAMOTIDINE 20 MG/2 ML INJ IV SCH ×2 (10:02→21:08)
--- NOTE | 2020-12-10 12:36 | Progress Note ---
Assessment and Plan 59 y/o male with acute respiratory failure, abnormal CXR and abnormal lab studies. 12/10/20: No acute events overnight. Patient has had waxing and waning of the amount of oxygen he has required over the last 24-72 hours. I have a bad fe eling that he is on the brink of cardiac arrest and this could happen at any moment. I am going to reach out to the brother today to explain to him my concerns. Patient is a full code. Very very guarded prognosis. 12/09/20: Repeat ABG later today. Wean FiO2 for sats >88%. Repeat CXR as well. With BP dropping could be relative adrenal insufficiency, will watch for now, however if pressor requirement increases would consider stress dose steroids and maybe volume replacement. Follow up cultures. Guarded prognosis. 12/08/20: Increase TV to 425. Drop FiO2 to 65% and wean for sats >88%. COntinue chest tubes. Change steroids to 20q12. 12/07/20: CXR is stable, no indication for another chest tube at this time. Will repeat ABG in 1 hour post change to 70% and wean accordingly. Dropping steroids to 20q8. Guarded prognosis. Same weaning parameters apply today as of 12/04/20 12/04/20: Continue to wean steroids to off. Continue to wean FiO2 for sats >88%. Keep PEEP at current level, would not feel comfortable weaning PEEP until FiO2 at 35-40%. Continue chest tubes to suction. PaO2 of >55, pH of >7.2 and sats >88% are acceptable. : Dropped steroids down to 40q8 and will start to wean from there. Continue to slowly wean FiO2 first, keep PEEP at current level. Spoke with Kehinde, please see my event note, who is the biological brother. He had no questions but thanked us for our care. Prognosis remains very very guarded. PaO2 of 55 and pH of >7.2 and sats of >88% are all acceptable. 12/02/20: Wean FiO2 for sats >88% and PaO2 >55. Unable to prone currently secondary to bilateral chest tubes. COntinue high dose steroids. CM To figure out who is the immediate next of kin that can make decisions and then we will discuss the current clinical situation with them. 12/01/20: Continue PEEP and FiO2 elevated to keep sats >88% and PaO2 >55. Small lung volumes and high PEEP. very very guarded prognosis. 11/30/20: Worsening hypoxemia. Chest tubes stable. Likely just worsening disease. Unable to prone now. Increase PEEP to 18 and FiO2 back up to 100. Continue 3 sedatives for RASS of -2. Obtain 12 lead to look at T waves as K was only 4.6 on yesterday. Guarded, guarded prognosis 11/29/20: Second chest tube in on yesterday. CXR is stable. ABG unchanged. Will likely increase PEEP now that chest tubes are in. No further paralytics. Still making good urine. Prognosis remains guarded. Will check chemistry to assess Potassium levels given peaked t's seen on monitor. 11/28/20: Second chest tube today. Once chest tube in, will likely increase PEEP to 18 and repeat gas about 2 hours after this. Continue paralytic today. No proning now that patient will have bilateral chest tubes. VEry guarded prognosis. 11/27/20: Spoke with surgery who have agreed to evaluate and placed chest tube on either right or left side pending CXR reading. Will monitor for 36-48 hours and if no resolution, will need chest tube placed on opposite side as well. Once placed, will likely paralyze again but hold on proning for now. Guarded prognosis. 11/26/20: Paralytics are off. Continue current level of sedation. Will prone for 12 hours today and repeat ABG in the am. Continue lung protective strategy. Guarded prognosis. 11/25/20: Prone again to 16 hours, will prone at 12-12:30. Continue paralytics for 24 more hours. Discussed the idea of permissive hypercapnea again today and as long as pH is above 7.2 no changes should be made to TV and or RR without discussing with physician. Continue to monitor urine output, guarded prognosis. Hold on lasix therapy today. 11/24/20: Prone again today. Will try 48 hours of paralyzing the patient to see if this will help with oxygenation. Will speak with RT's about permissive hypercapnea and that pH's of 7.2 and greater are ok. Continue high doses steroids. Prognosis is still very very guarded. If not improvement with paralytics, will attempt transfer. 11/23/20: Prone again today for 12 hours. Continue High Dose steroids. Hold on lasix given marginal BP's. Prognosis is very very guarded to poor. Will continue all supportive measures. If not able to wean from 100%, will attempt transfer for ECMO. 11/20/20: WIll change to solumedrol 60q6 today. Hold on lasix today. Given his increasing oxygen requirement, will likely end up intubated. OVerall prognosis is very poor. 11/19/20: lasix 40mg IV x1 today. Will speak with ID but may consider increasing steroids to see if this will help with oxygenation. Continue Remdesivir. Prognosis remains guarded. 11/18/20: Continue bipap, goal is to attempt to prevent prolong intubation for as long as possible. Lasix again today. Steroids and Remdesivir. Guarded Prognosis. 11/17/20: Continue bipap therapy. Monitor mental state. High risk for Intubation. Continue BID anticoagulation. Prone if able. BNP was elevated but not grossly elevated. Will still give lasix with hopes of achieving net negative state. STeroids and remdesivir. Overall prognosis is guarded, extremely guarded. 1. Pulm- Agree with concern for covid. Agree with empiric abx but procal is only mildly elevated. Await cultures. Continue bipap therapy for now but will need to monitor closely. [facility] has ordered CTA, but I spoke with pharmacy and we will empirically treat with BID lovenox therapy. COntinue empiric steroid therapy for COVID until studies back. Not sure that he will be able to prone on bipap therapy. Monitor volume status and run as dry as possible. 2. Renal-normal function but all electrolytes abnormal. HYponatremia and Hypochloremia volume up vs volume down. Sent BNP. Would suggest obtaning echo as well. Not sure what to make of elevated lactate unless that is from increased work of breathing or damage to other tissue unknown. May need to check LFT's and Coags as well. 3. Guarded Prognosis. CCT 31 minutes. Subjective Date of service: 12/10/20 Principal diagnosis: COVID-19 Interval history: Had to be increased back up to 100% shortly after rounds today. BP has been marginal, most likely secondary to sedation. Off vasopressor therapy now. Objective Vital Signs - 12hr 12/10/20 12/10/20 12/10/20 00:43 01:00 01:30 Temperature Pulse Rate 92 H 95 H 99 H Pulse Rate [ From Monitor] Respiratory 25 H 22 Rate Blood Pressure 144/77 150/81 132/70 O2 Sat by Pulse 96 94 94 Oximetry 12/10/20 12/10/20 12/10/20 02:00 02:30 03:00 Temperature Pulse Rate 92 H 93 H 92 H Pulse Rate [ From Monitor] Respiratory 30 H 30 H 20 Rate Blood Pressure 119/60 97/48 93/47 O2 Sat by Pulse 95 96 95 Oximetry 12/10/20 12/10/20 12/10/20 03:30 04:00 04:25 Temperature 99.3 F Pulse Rate 92 H 88 92 H Pulse Rate [ 88 From Monitor] Respiratory 19 30 H Rate Blood Pressure 81/57 89/49 84/47 O2 Sat by Pulse 95 94 96 Oximetry 12/10/20 12/10/20 12/10/20 04:30 05:00 05:30 Temperature Pulse Rate 103 H 86 90 Pulse Rate [ From Monitor] Respiratory 23 30 H 30 H Rate Blood Pressure 84/47 92/52 90/51 O2 Sat by Pulse 95 97 98 Oximetry 12/10/20 12/10/20 12/10/20 06:00 06:30 07:00 Temperature 98.7 F Pulse Rate 86 88 88 Pulse Rate [ From Monitor] Respiratory 30 H 23 26 H Rate Blood Pressure 94/51 89/52 93/54 O2 Sat by Pulse 97 96 96 Oximetry 12/10/20 12/10/20 12/10/20 07:30 08:00 08:21 Temperature 98.7 F Pulse Rate 101 H 103 H 100 H Pulse Rate [ 104 H From Monitor] Respiratory 29 H 18 Rate Blood Pressure 87/48 137/73 129/70 O2 Sat by Pulse 97 97 93 Oximetry 12/10/20 12/10/20 12/10/20 08:30 09:00 09:30 Temperature Pulse Rate 101 H 111 H 114 H Pulse Rate [ From Monitor] Respiratory 17 18 16 Rate Blood Pressure 147/77 129/68 126/63 O2 Sat by Pulse 96 96 93 Oximetry 12/10/20 12/10/20 12/10/20 10:00 10:30 11:00 Temperature Pulse Rate 118 H 119 H 115 H Pulse Rate [ From Monitor] Respiratory 30 H 29 H 30 H Rate Blood Pressure 103/62 102/60 111/61 O2 Sat by Pulse 92 93 91 Oximetry 12/10/20 12:00 Temperature 99.4 F Pulse Rate Pulse Rate [ From Monitor] Respiratory Rate Blood Pressure O2 Sat by Pulse Oximetry Constitutional: other (on vent orally intubated) ENT: other (Now intubated) Ascultation: Bilateral: rales, rhonchi Percussion: Bilateral: not dull Cardiovascular: regular rate and rhythm Gastrointestinal: soft, non-tender Neurologic: other (on vent) CBC and BMP: 12/09/20 06:40 12/09/20 06:40 ABG, PT/INR, D-dimer: ABG ABG pH 7.417 (7.320-7.450) 12/10/20 04:28 POC ABG pCO2 76.9 mmHg (32.0-48.0) H 12/10/20 04:28 ABG pCO2 81.3 mm Hg 12/08/20 04:12 POC ABG pO2 60.2 mmHg (83-108) L 12/10/20 04:28 ABG pO2 69.7 mm Hg (80.0-90.0) L 12/08/20 04:12 POC ABG HCO3 48.4 12/10/20 04:28 ABG O2 Saturation 95.4 % (95.0-99.0) 12/08/20 04:12 PT/INR, D-dimer D-Dimer 926.11 ng/mlDDU (0-234) H 11/26/20 06:04 Abnormal lab findings: Abnormal Labs 11/15/20 11/15/20 11/15/20 10:39 10:39 10:39 WBC 14.3 H RBC 5.17 H Hgb Hct Plt Count Lymph % (Auto) 7.8 L [place] % (Auto) 7.6 H Lymph # (Auto) 1.1 L [place] # (Auto) 1.1 H Baso # (Auto) Seg Neutrophils % 83.3 H Seg Neuts % (Manual) Lymphocytes % (Manual) Seg Neutrophils # 11.9 H Seg Neutrophils # Man Lymphocytes # (Manual) D-Dimer ABG pH POC ABG pCO2 POC ABG pO2 ABG pO2 ABG HCO3 ABG O2 Saturation ABG Base Excess ABG Hemoglobin ABG Oxyhemoglobin ABG Sodium ABG Potassium ABG Chloride ABG Glucose Oxyhemoglobin Carboxyhemoglobin Sodium 128 L Potassium Chloride 96.0 L Carbon Dioxide BUN Creatinine 0.7 L Glucose 238 H POC Glucose Hemoglobin A1c Lactic Acid 4.10 H* Calcium 7.0 L Ferritin Total Bilirubin 1.40 H AST 49 H ALT 70 H Alkaline Phosphatase Lactate Dehydrogenase 663 H C-Reactive Protein 19.80 H Total Protein Albumin 2.9 L Triglycerides Arterial Blood Glucose Arterial Blood Ionized Calcium Ur Specific [place] Vancomycin Trough Coronavirus (PCR) 11/15/20 11/15/20 11/15/20 10:39 10:39 11:20 WBC RBC Hgb Hct Plt Count Lymph % (Auto) [place] % (Auto) Lymph # (Auto) [place] # (Auto) Baso # (Auto) Seg Neutrophils % Seg Neuts % (Manual) Lymphocytes % (Manual) Seg Neutrophils # Seg Neutrophils # Man Lymphocytes # (Manual) D-Dimer > 86094 H ABG pH POC ABG pCO2 29.9 L POC ABG pO2 137.3 H ABG pO2 ABG HCO3 ABG O2 Saturation ABG Base Excess ABG Hemoglobin ABG Oxyhemoglobin ABG Sodium 126.5 L ABG Potassium ABG Chloride ABG Glucose 248 H Oxyhemoglobin Carboxyhemoglobin Sodium Potassium Chloride Carbon Dioxide BUN Creatinine Glucose POC Glucose Hemoglobin A1c Lactic Acid Calcium Ferritin 672.8 H Total Bilirubin AST ALT Alkaline Phosphatase Lactate Dehydrogenase C-Reactive Protein Total Protein Albumin Triglycerides Arterial Blood Glucose 248 H Arterial Blood Ionized Calcium 4.1 L Ur Specific [place] Vancomycin Trough Coronavirus (PCR) 11/15/20 11/15/20 11/16/20 13:41 23:41 01:45 WBC RBC Hgb Hct Plt Count Lymph % (Auto) [place] % (Auto) Lymph # (Auto) [place] # (Auto) Baso # (Auto) Seg Neutrophils % Seg Neuts % (Manual) Lymphocytes % (Manual) Seg Neutrophils # Seg Neutrophils # Man Lymphocytes # (Manual) D-Dimer ABG pH POC ABG pCO2 POC ABG pO2 ABG pO2 ABG HCO3 ABG O2 Saturation ABG Base Excess ABG Hemoglobin ABG Oxyhemoglobin ABG Sodium ABG Potassium ABG Chloride ABG Glucose Oxyhemoglobin Carboxyhemoglobin Sodium Potassium Chloride Carbon Dioxide BUN Creatinine Glucose POC Glucose 284 H Hemoglobin A1c Lactic Acid 2.30 H* Calcium Ferritin Total Bilirubin AST ALT Alkaline Phosphatase Lactate Dehydrogenase C-Reactive Protein Total Protein Albumin Triglycerides Arterial Blood Glucose Arterial Blood Ionized Calcium Ur Specific [place] 1.037 H Vancomycin Trough Coronavirus (PCR) 11/16/20 11/16/20 11/16/20 05:29 05:29 05:29 WBC 12.9 H RBC Hgb Hct Plt Count Lymph % (Auto) 4.5 L [place] % (Auto) Lymph # (Auto) 0.6 L [place] # (Auto) Baso # (Auto) 0.2 H Seg Neutrophils % 89.8 H Seg Neuts % (Manual) Lymphocytes % (Manual) Seg Neutrophils # 11.5 H Seg Neutrophils # Man Lymphocytes # (Manual) D-Dimer ABG pH POC ABG pCO2 POC ABG pO2 ABG pO2 ABG HCO3 ABG O2 Saturation ABG Base Excess ABG Hemoglobin ABG Oxyhemoglobin ABG Sodium ABG Potassium ABG Chloride ABG Glucose Oxyhemoglobin Carboxyhemoglobin Sodium 131 L Potassium Chloride Carbon Dioxide 21 L BUN 23 H Creatinine 0.6 L Glucose 342 H POC Glucose Hemoglobin A1c Lactic Acid 2.60 H* Calcium 7.0 L Ferritin Total Bilirubin AST ALT Alkaline Phosphatase Lactate Dehydrogenase C-Reactive Protein Total Protein Albumin 2.4 L Triglycerides Arterial Blood Glucose Arterial Blood Ionized Calcium Ur Specific [place] Vancomycin Trough Coronavirus (PCR) 11/16/20 11/16/20 11/16/20 05:29 08:11 12:11 WBC RBC Hgb Hct Plt Count Lymph % (Auto) [place] % (Auto) Lymph # (Auto) [place] # (Auto) Baso # (Auto) Seg Neutrophils % Seg Neuts % (Manual) Lymphocytes % (Manual) Seg Neutrophils # Seg Neutrophils # Man Lymphocytes # (Manual) D-Dimer ABG pH POC ABG pCO2 POC ABG pO2 ABG pO2 ABG HCO3 ABG O2 Saturation ABG Base Excess ABG Hemoglobin ABG Oxyhemoglobin ABG Sodium ABG Potassium ABG Chloride ABG Glucose Oxyhemoglobin Carboxyhemoglobin Sodium Potassium Chloride Carbon Dioxide BUN Creatinine Glucose POC Glucose 329 H 320 H Hemoglobin A1c 11.7 H Lactic Acid Calcium Ferritin Total Bilirubin AST ALT Alkaline Phosphatase Lactate Dehydrogenase C-Reactive Protein Total Protein Albumin Triglycerides Arterial Blood Glucose Arterial Blood Ionized Calcium Ur Specific [place] Vancomycin Trough Coronavirus (PCR) 11/16/20 11/16/20 11/16/20 16:13 21:29 Unknown WBC RBC Hgb Hct Plt Count Lymph % (Auto) [place] % (Auto) Lymph # (Auto) [place] # (Auto) Baso # (Auto) Seg Neutrophils % Seg Neuts % (Manual) Lymphocytes % (Manual) Seg Neutrophils # Seg Neutrophils # Man Lymphocytes # (Manual) D-Dimer ABG pH POC ABG pCO2 POC ABG pO2 ABG pO2 ABG HCO3 ABG O2 Saturation ABG Base Excess ABG Hemoglobin ABG Oxyhemoglobin ABG Sodium ABG Potassium ABG Chloride ABG Glucose Oxyhemoglobin Carboxyhemoglobin Sodium Potassium Chloride Carbon Dioxide BUN Creatinine Glucose POC Glucose 257 H 376 H Hemoglobin A1c Lactic Acid Calcium Ferritin Total Bilirubin AST ALT Alkaline Phosphatase Lactate Dehydrogenase C-Reactive Protein Total Protein Albumin Triglycerides Arterial Blood Glucose Arterial Blood Ionized Calcium Ur Specific [place] Vancomycin Trough Coronavirus (PCR) Positive A 11/17/20 11/17/20 11/17/20 07:42 12:07 17:25 WBC RBC Hgb Hct Plt Count Lymph % (Auto) [place] % (Auto) Lymph # (Auto) [place] # (Auto) Baso # (Auto) Seg Neutrophils % Seg Neuts % (Manual) Lymphocytes % (Manual) Seg Neutrophils # Seg Neutrophils # Man Lymphocytes # (Manual) D-Dimer ABG pH POC ABG pCO2 POC ABG pO2 ABG pO2 ABG HCO3 ABG O2 Saturation ABG Base Excess ABG Hemoglobin ABG Oxyhemoglobin ABG Sodium ABG Potassium ABG Chloride ABG Glucose Oxyhemoglobin Carboxyhemoglobin Sodium Potassium Chloride Carbon Dioxide BUN Creatinine Glucose POC Glucose 231 H 380 H 302 H Hemoglobin A1c Lactic Acid Calcium Ferritin Total Bilirubin AST ALT Alkaline Phosphatase Lactate Dehydrogenase C-Reactive Protein Total Protein Albumin Triglycerides Arterial Blood Glucose Arterial Blood Ionized Calcium Ur Specific [place] Vancomycin Trough Coronavirus (PCR) 11/17/20 11/18/20 11/18/20 21:53 04:25 07:45 WBC RBC Hgb Hct Plt Count Lymph % (Auto) [place] % (Auto) Lymph # (Auto) [place] # (Auto) Baso # (Auto) Seg Neutrophils % Seg Neuts % (Manual) Lymphocytes % (Manual) Seg Neutrophils # Seg Neutrophils # Man Lymphocytes # (Manual) D-Dimer ABG pH POC ABG pCO2 POC ABG pO2 ABG pO2 ABG HCO3 ABG O2 Saturation ABG Base Excess ABG Hemoglobin ABG Oxyhemoglobin ABG Sodium ABG Potassium ABG Chloride ABG Glucose Oxyhemoglobin Carboxyhemoglobin Sodium 136 L Potassium Chloride Carbon Dioxide BUN 24 H Creatinine 0.6 L Glucose 212 H POC Glucose 293 H 216 H Hemoglobin A1c Lactic Acid Calcium 7.4 L Ferritin Total Bilirubin AST 41 H ALT Alkaline Phosphatase 142 H Lactate Dehydrogenase C-Reactive Protein Total Protein Albumin 2.3 L Triglycerides Arterial Blood Glucose Arterial Blood Ionized Calcium Ur Specific [place] Vancomycin Trough Coronavirus (PCR) 11/18/20 11/18/20 11/18/20 12:28 15:58 21:37 WBC RBC Hgb Hct Plt Count Lymph % (Auto) [place] % (Auto) Lymph # (Auto) [place] # (Auto) Baso # (Auto) Seg Neutrophils % Seg Neuts % (Manual) Lymphocytes % (Manual) Seg Neutrophils # Seg Neutrophils # Man Lymphocytes # (Manual) D-Dimer ABG pH POC ABG pCO2 POC ABG pO2 ABG pO2 ABG HCO3 ABG O2 Saturation ABG Base Excess ABG Hemoglobin ABG Oxyhemoglobin ABG Sodium ABG Potassium ABG Chloride ABG Glucose Oxyhemoglobin Carboxyhemoglobin Sodium Potassium Chloride Carbon Dioxide BUN Creatinine Glucose POC Glucose 165 H 220 H 311 H Hemoglobin A1c Lactic Acid Calcium Ferritin Total Bilirubin AST ALT Alkaline Phosphatase Lactate Dehydrogenase C-Reactive Protein Total Protein Albumin Triglycerides Arterial Blood Glucose Arterial Blood Ionized Calcium Ur Specific [place] Vancomycin Trough Coronavirus (PCR) 11/19/20 11/19/20 11/19/20 05:35 07:40 12:39 WBC RBC Hgb Hct Plt Count Lymph % (Auto) [place] % (Auto) Lymph # (Auto) [place] # (Auto) Baso # (Auto) Seg Neutrophils % Seg Neuts % (Manual) Lymphocytes % (Manual) Seg Neutrophils # Seg Neutrophils # Man Lymphocytes # (Manual) D-Dimer ABG pH POC ABG pCO2 POC ABG pO2 ABG pO2 ABG HCO3 ABG O2 Saturation ABG Base Excess ABG Hemoglobin ABG Oxyhemoglobin ABG Sodium ABG Potassium ABG Chloride ABG Glucose Oxyhemoglobin Carboxyhemoglobin Sodium 132 L Potassium Chloride Carbon Dioxide BUN 25 H Creatinine 0.5 L Glucose 179 H POC Glucose 149 H 306 H Hemoglobin A1c Lactic Acid Calcium 7.5 L Ferritin Total Bilirubin AST ALT Alkaline Phosphatase 139 H Lactate Dehydrogenase C-Reactive Protein Total Protein Albumin 2.4 L Triglycerides Arterial Blood Glucose Arterial Blood Ionized Calcium Ur Specific [place] Vancomycin Trough Coronavirus (PCR) 11/19/20 11/19/20 11/20/20 16:17 21:25 08:30 WBC RBC Hgb Hct Plt Count Lymph % (Auto) [place] % (Auto) Lymph # (Auto) [place] # (Auto) Baso # (Auto) Seg Neutrophils % Seg Neuts % (Manual) Lymphocytes % (Manual) Seg Neutrophils # Seg Neutrophils # Man Lymphocytes # (Manual) D-Dimer ABG pH POC ABG pCO2 POC ABG pO2 ABG pO2 ABG HCO3 ABG O2 Saturation ABG Base Excess ABG Hemoglobin ABG Oxyhemoglobin ABG Sodium ABG Potassium ABG Chloride ABG Glucose Oxyhemoglobin Carboxyhemoglobin Sodium Potassium Chloride Carbon Dioxide BUN Creatinine Glucose POC Glucose 364 H 347 H 141 H Hemoglobin A1c Lactic Acid Calcium Ferritin Total Bilirubin AST ALT Alkaline Phosphatase Lactate Dehydrogenase C-Reactive Protein Total Protein Albumin Triglycerides Arterial Blood Glucose Arterial Blood Ionized Calcium Ur Specific [place] Vancomycin Trough Coronavirus (PCR) 11/20/20 11/20/20 11/20/20 08:50 11:32 16:19 WBC RBC Hgb Hct Plt Count Lymph % (Auto) [place] % (Auto) Lymph # (Auto) [place] # (Auto) Baso # (Auto) Seg Neutrophils % Seg Neuts % (Manual) Lymphocytes % (Manual) Seg Neutrophils # Seg Neutrophils # Man Lymphocytes # (Manual) D-Dimer ABG pH POC ABG pCO2 POC ABG pO2 ABG pO2 ABG HCO3 ABG O2 Saturation ABG Base Excess ABG Hemoglobin ABG Oxyhemoglobin ABG Sodium ABG Potassium ABG Chloride ABG Glucose Oxyhemoglobin Carboxyhemoglobin Sodium 132 L Potassium Chloride 97.6 L Carbon Dioxide BUN 26 H Creatinine 0.5 L Glucose 201 H POC Glucose 296 H 327 H Hemoglobin A1c Lactic Acid Calcium 7.9 L Ferritin Total Bilirubin AST ALT Alkaline Phosphatase 137 H Lactate Dehydrogenase C-Reactive Protein Total Protein Albumin 2.6 L Triglycerides Arterial Blood Glucose Arterial Blood Ionized Calcium Ur Specific [place] Vancomycin Trough Coronavirus (PCR) 11/20/20 11/21/20 11/21/20 22:09 07:59 13:51 WBC RBC Hgb Hct Plt Count Lymph % (Auto) [place] % (Auto) Lymph # (Auto) [place] # (Auto) Baso # (Auto) Seg Neutrophils % Seg Neuts % (Manual) Lymphocytes % (Manual) Seg Neutrophils # Seg Neutrophils # Man Lymphocytes # (Manual) D-Dimer ABG pH POC ABG pCO2 POC ABG pO2 ABG pO2 ABG HCO3 ABG O2 Saturation ABG Base Excess ABG Hemoglobin ABG Oxyhemoglobin ABG Sodium ABG Potassium ABG Chloride ABG Glucose Oxyhemoglobin Carboxyhemoglobin Sodium Potassium Chloride Carbon Dioxide BUN Creatinine Glucose POC Glucose 311 H 218 H 304 H Hemoglobin A1c Lactic Acid Calcium Ferritin Total Bilirubin AST ALT Alkaline Phosphatase Lactate Dehydrogenase C-Reactive Protein Total Protein Albumin Triglycerides Arterial Blood Glucose Arterial Blood Ionized Calcium Ur Specific [place] Vancomycin Trough Coronavirus (PCR) 11/21/20 11/21/20 11/21/20 16:09 21:34 23:00 WBC RBC Hgb Hct Plt Count Lymph % (Auto) [place] % (Auto) Lymph # (Auto) [place] # (Auto) Baso # (Auto) Seg Neutrophils % Seg Neuts % (Manual) Lymphocytes % (Manual) Seg Neutrophils # Seg Neutrophils # Man Lymphocytes # (Manual) D-Dimer ABG pH 7.206 L POC ABG pCO2 59.3 H POC ABG pO2 76.7 L ABG pO2 ABG HCO3 ABG O2 Saturation ABG Base Excess ABG Hemoglobin ABG Oxyhemoglobin ABG Sodium 133.1 L ABG Potassium ABG Chloride ABG Glucose 320 H Oxyhemoglobin Carboxyhemoglobin Sodium Potassium Chloride Carbon Dioxide BUN Creatinine Glucose POC Glucose 239 H 279 H Hemoglobin A1c Lactic Acid Calcium Ferritin Total Bilirubin AST ALT Alkaline Phosphatase Lactate Dehydrogenase C-Reactive Protein Total Protein Albumin Triglycerides Arterial Blood Glucose 320 H Arterial Blood Ionized Calcium Ur Specific [place] Vancomycin Trough Coronavirus (PCR) 11/22/20 11/22/20 11/22/20 04:52 04:52 04:52 WBC RBC Hgb Hct Plt Count Lymph % (Auto) [place] % (Auto) Lymph # (Auto) [place] # (Auto) Baso # (Auto) Seg Neutrophils % Seg Neuts % (Manual) Lymphocytes % (Manual) Seg Neutrophils # Seg Neutrophils # Man Lymphocytes # (Manual) D-Dimer 1858.36 H ABG pH POC ABG pCO2 POC ABG pO2 ABG pO2 ABG HCO3 ABG O2 Saturation ABG Base Excess ABG Hemoglobin ABG Oxyhemoglobin ABG Sodium ABG Potassium ABG Chloride ABG Glucose Oxyhemoglobin Carboxyhemoglobin Sodium Potassium Chloride Carbon Dioxide BUN Creatinine Glucose POC Glucose Hemoglobin A1c Lactic Acid Calcium Ferritin 734.2 H Total Bilirubin AST ALT Alkaline Phosphatase Lactate Dehydrogenase 404 H C-Reactive Protein 2.80 H Total Protein Albumin Triglycerides Arterial Blood Glucose Arterial Blood Ionized Calcium Ur Specific [place] Vancomycin Trough Coronavirus (PCR) 11/22/20 11/22/20 11/22/20 05:12 05:39 11:50 WBC RBC Hgb Hct Plt Count Lymph % (Auto) [place] % (Auto) Lymph # (Auto) [place] # (Auto) Baso # (Auto) Seg Neutrophils % Seg Neuts % (Manual) Lymphocytes % (Manual) Seg Neutrophils # Seg Neutrophils # Man Lymphocytes # (Manual) D-Dimer ABG pH POC ABG pCO2 POC ABG pO2 51.0 L ABG pO2 ABG HCO3 ABG O2 Saturation ABG Base Excess ABG Hemoglobin ABG Oxyhemoglobin ABG Sodium 131.2 L ABG Potassium 4.6 H ABG Chloride ABG Glucose 317 H Oxyhemoglobin Carboxyhemoglobin Sodium Potassium Chloride Carbon Dioxide BUN Creatinine Glucose POC Glucose 340 H 417 H Hemoglobin A1c Lactic Acid Calcium Ferritin Total Bilirubin AST ALT Alkaline Phosphatase Lactate Dehydrogenase C-Reactive Protein Total Protein Albumin Triglycerides Arterial Blood Glucose 317 H Arterial Blood Ionized Calcium 4.4 L Ur Specific [place] Vancomycin Trough Coronavirus (PCR) 11/22/20 11/22/20 11/22/20 12:22 12:22 17:10 WBC 14.4 H RBC Hgb Hct Plt Count Lymph % (Auto) [place] % (Auto) Lymph # (Auto) [place] # (Auto) Baso # (Auto) Seg Neutrophils % Seg Neuts % (Manual) 98.0 H Lymphocytes % (Manual) Seg Neutrophils # Seg Neutrophils # Man 14.1 H Lymphocytes # (Manual) 0.0 L D-Dimer ABG pH POC ABG pCO2 POC ABG pO2 ABG pO2 ABG HCO3 ABG O2 Saturation ABG Base Excess ABG Hemoglobin ABG Oxyhemoglobin ABG Sodium ABG Potassium ABG Chloride ABG Glucose Oxyhemoglobin Carboxyhemoglobin Sodium 132 L Potassium Chloride Carbon Dioxide BUN 36 H Creatinine 0.6 L Glucose 219 H POC Glucose 157 H Hemoglobin A1c Lactic Acid Calcium 7.2 L Ferritin Total Bilirubin AST ALT Alkaline Phosphatase Lactate Dehydrogenase C-Reactive Protein Total Protein Albumin Triglycerides Arterial Blood Glucose Arterial Blood Ionized Calcium Ur Specific [place] Vancomycin Trough Coronavirus (PCR) 11/22/20 11/22/20 11/22/20 18:33 21:44 23:47 WBC RBC Hgb Hct Plt Count Lymph % (Auto) [place] % (Auto) Lymph # (Auto) [place] # (Auto) Baso # (Auto) Seg Neutrophils % Seg Neuts % (Manual) Lymphocytes % (Manual) Seg Neutrophils # Seg Neutrophils # Man Lymphocytes # (Manual) D-Dimer ABG pH POC ABG pCO2 POC ABG pO2 60.8 L ABG pO2 ABG HCO3 ABG O2 Saturation ABG Base Excess ABG Hemoglobin ABG Oxyhemoglobin 88.1 L ABG Sodium 135.1 L ABG Potassium ABG Chloride ABG Glucose 141 H Oxyhemoglobin Carboxyhemoglobin Sodium Potassium Chloride Carbon Dioxide BUN Creatinine Glucose POC Glucose 117 H 123 H Hemoglobin A1c Lactic Acid Calcium Ferritin Total Bilirubin AST ALT Alkaline Phosphatase Lactate Dehydrogenase C-Reactive Protein Total Protein Albumin Triglycerides Arterial Blood Glucose 141 H Arterial Blood Ionized Calcium Ur Specific [place] Vancomycin Trough Coronavirus (PCR) 11/23/20 11/23/20 11/23/20 04:00 04:00 05:23 WBC 14.4 H RBC Hgb Hct Plt Count Lymph % (Auto) [place] % (Auto) Lymph # (Auto) [place] # (Auto) Baso # (Auto) Seg Neutrophils % Seg Neuts % (Manual) Lymphocytes % (Manual) Seg Neutrophils # Seg Neutrophils # Man Lymphocytes # (Manual) D-Dimer ABG pH POC ABG pCO2 POC ABG pO2 ABG pO2 ABG HCO3 ABG O2 Saturation ABG Base Excess ABG Hemoglobin ABG Oxyhemoglobin ABG Sodium ABG Potassium ABG Chloride ABG Glucose Oxyhemoglobin Carboxyhemoglobin Sodium 136 L Potassium Chloride Carbon Dioxide BUN 33 H Creatinine 0.6 L Glucose 115 H POC Glucose 173 H Hemoglobin A1c Lactic Acid Calcium 7.1 L Ferritin Total Bilirubin AST 64 H ALT 75 H Alkaline Phosphatase Lactate Dehydrogenase C-Reactive Protein Total Protein 5.9 L D Albumin 2.4 L Triglycerides Arterial Blood Glucose Arterial Blood Ionized Calcium Ur Specific [place] Vancomycin Trough Coronavirus (PCR) 11/23/20 11/23/20 11/23/20 05:40 11:27 17:10 WBC RBC Hgb Hct Plt Count Lymph % (Auto) [place] % (Auto) Lymph # (Auto) [place] # (Auto) Baso # (Auto) Seg Neutrophils % Seg Neuts % (Manual) Lymphocytes % (Manual) Seg Neutrophils # Seg Neutrophils # Man Lymphocytes # (Manual) D-Dimer ABG pH POC ABG pCO2 POC ABG pO2 56.5 L ABG pO2 ABG HCO3 ABG O2 Saturation ABG Base Excess ABG Hemoglobin ABG Oxyhemoglobin ABG Sodium ABG Potassium ABG Chloride 109.0 H ABG Glucose 114 H Oxyhemoglobin Carboxyhemoglobin Sodium Potassium Chloride Carbon Dioxide BUN Creatinine Glucose POC Glucose 114 H 136 H Hemoglobin A1c Lactic Acid Calcium Ferritin Total Bilirubin AST ALT Alkaline Phosphatase Lactate Dehydrogenase C-Reactive Protein Total Protein Albumin Triglycerides Arterial Blood Glucose 114 H Arterial Blood Ionized Calcium 4.5 L Ur Specific [place] Vancomycin Trough Coronavirus (PCR) 11/24/20 11/24/20 11/24/20 05:14 05:14 05:14 WBC RBC Hgb Hct Plt Count Lymph % (Auto) [place] % (Auto) Lymph # (Auto) [place] # (Auto) Baso # (Auto) Seg Neutrophils % Seg Neuts % (Manual) Lymphocytes % (Manual) Seg Neutrophils # Seg Neutrophils # Man Lymphocytes # (Manual) D-Dimer 1433.39 H ABG pH POC ABG pCO2 POC ABG pO2 ABG pO2 ABG HCO3 ABG O2 Saturation ABG Base Excess ABG Hemoglobin ABG Oxyhemoglobin ABG Sodium ABG Potassium ABG Chloride ABG Glucose Oxyhemoglobin Carboxyhemoglobin Sodium Potassium Chloride Carbon Dioxide BUN Creatinine Glucose POC Glucose Hemoglobin A1c Lactic Acid Calcium Ferritin 997.5 H Total Bilirubin AST ALT Alkaline Phosphatase Lactate Dehydrogenase 463 H C-Reactive Protein Total Protein Albumin Triglycerides Arterial Blood Glucose Arterial Blood Ionized Calcium Ur Specific [place] Vancomycin Trough Coronavirus (PCR) 11/24/20 11/24/20 11/24/20 05:31 05:36 12:05 WBC RBC Hgb Hct Plt Count Lymph % (Auto) [place] % (Auto) Lymph # (Auto) [place] # (Auto) Baso # (Auto) Seg Neutrophils % Seg Neuts % (Manual) Lymphocytes % (Manual) Seg Neutrophils # Seg Neutrophils # Man Lymphocytes # (Manual) D-Dimer ABG pH POC ABG pCO2 POC ABG pO2 57.2 L ABG pO2 ABG HCO3 ABG O2 Saturation ABG Base Excess ABG Hemoglobin ABG Oxyhemoglobin ABG Sodium ABG Potassium ABG Chloride ABG Glucose 180 H Oxyhemoglobin Carboxyhemoglobin Sodium Potassium Chloride Carbon Dioxide BUN Creatinine Glucose POC Glucose 199 H 143 H Hemoglobin A1c Lactic Acid Calcium Ferritin Total Bilirubin AST ALT Alkaline Phosphatase Lactate Dehydrogenase C-Reactive Protein Total Protein Albumin Triglycerides Arterial Blood Glucose 180 H Arterial Blood Ionized Calcium 4.5 L Ur Specific [place] Vancomycin Trough Coronavirus (PCR) 11/24/20 11/24/20 11/24/20 12:14 17:47 23:47 WBC RBC Hgb Hct Plt Count Lymph % (Auto) [place] % (Auto) Lymph # (Auto) [place] # (Auto) Baso # (Auto) Seg Neutrophils % Seg Neuts % (Manual) Lymphocytes % (Manual) Seg Neutrophils # Seg Neutrophils # Man Lymphocytes # (Manual) D-Dimer ABG pH 7.261 L POC ABG pCO2 59.7 H POC ABG pO2 75.7 L ABG pO2 ABG HCO3 ABG O2 Saturation ABG Base Excess ABG Hemoglobin ABG Oxyhemoglobin 92.5 L ABG Sodium ABG Potassium ABG Chloride 108.0 H ABG Glucose 150 H Oxyhemoglobin Carboxyhemoglobin Sodium Potassium Chloride Carbon Dioxide BUN Creatinine Glucose POC Glucose 223 H 179 H Hemoglobin A1c Lactic Acid Calcium Ferritin Total Bilirubin AST ALT Alkaline Phosphatase Lactate Dehydrogenase C-Reactive Protein Total Protein Albumin Triglycerides Arterial Blood Glucose 150 H Arterial Blood Ionized Calcium Ur Specific [place] Vancomycin Trough Coronavirus (PCR) 11/25/20 11/25/20 11/25/20 03:29 05:07 05:15 WBC 13.9 H RBC Hgb Hct Plt Count Lymph % (Auto) [place] % (Auto) Lymph # (Auto) [place] # (Auto) Baso # (Auto) Seg Neutrophils % Seg Neuts % (Manual) 97.0 H Lymphocytes % (Manual) Seg Neutrophils # Seg Neutrophils # Man 13.5 H Lymphocytes # (Manual) 0.0 L D-Dimer ABG pH 7.272 L POC ABG pCO2 69.0 H POC ABG pO2 132.9 H ABG pO2 ABG HCO3 ABG O2 Saturation ABG Base Excess ABG Hemoglobin ABG Oxyhemoglobin ABG Sodium ABG Potassium ABG Chloride ABG Glucose 174 H Oxyhemoglobin Carboxyhemoglobin Sodium Potassium Chloride Carbon Dioxide BUN Creatinine Glucose POC Glucose 168 H Hemoglobin A1c Lactic Acid Calcium Ferritin Total Bilirubin AST ALT Alkaline Phosphatase Lactate Dehydrogenase C-Reactive Protein Total Protein Albumin Triglycerides Arterial Blood Glucose 174 H Arterial Blood Ionized Calcium Ur Specific [place] Vancomycin Trough Coronavirus (PCR) 11/25/20 11/25/20 11/25/20 05:15 11:25 17:35 WBC RBC Hgb Hct Plt Count Lymph % (Auto) [place] % (Auto) Lymph # (Auto) [place] # (Auto) Baso # (Auto) Seg Neutrophils % Seg Neuts % (Manual) Lymphocytes % (Manual) Seg Neutrophils # Seg Neutrophils # Man Lymphocytes # (Manual) D-Dimer ABG pH POC ABG pCO2 POC ABG pO2 ABG pO2 ABG HCO3 ABG O2 Saturation ABG Base Excess ABG Hemoglobin ABG Oxyhemoglobin ABG Sodium ABG Potassium ABG Chloride ABG Glucose Oxyhemoglobin Carboxyhemoglobin Sodium Potassium Chloride Carbon Dioxide BUN 29 H Creatinine 0.5 L Glucose 161 H POC Glucose 224 H 228 H Hemoglobin A1c Lactic Acid Calcium 7.8 L Ferritin Total Bilirubin AST 89 H ALT 129 H Alkaline Phosphatase Lactate Dehydrogenase C-Reactive Protein Total Protein 5.8 L Albumin 2.5 L Triglycerides Arterial Blood Glucose Arterial Blood Ionized Calcium Ur Specific [place] Vancomycin Trough Coronavirus (PCR) 11/25/20 11/25/20 11/26/20 20:45 23:28 04:00 WBC RBC Hgb Hct Plt Count Lymph % (Auto) [place] % (Auto) Lymph # (Auto) [place] # (Auto) Baso # (Auto) Seg Neutrophils % Seg Neuts % (Manual) Lymphocytes % (Manual) Seg Neutrophils # Seg Neutrophils # Man Lymphocytes # (Manual) D-Dimer ABG pH POC ABG pCO2 POC ABG pO2 ABG pO2 ABG HCO3 ABG O2 Saturation ABG Base Excess ABG Hemoglobin ABG Oxyhemoglobin ABG Sodium ABG Potassium ABG Chloride ABG Glucose Oxyhemoglobin Carboxyhemoglobin Sodium Potassium Chloride Carbon Dioxide BUN Creatinine Glucose POC Glucose 177 H 243 H Hemoglobin A1c Lactic Acid Calcium Ferritin 778.8 H Total Bilirubin AST ALT Alkaline Phosphatase Lactate Dehydrogenase C-Reactive Protein Total Protein Albumin Triglycerides Arterial Blood Glucose Arterial Blood Ionized Calcium Ur Specific [place] Vancomycin Trough Coronavirus (PCR) 11/26/20 11/26/20 11/26/20 04:00 05:34 06:04 WBC RBC Hgb Hct Plt Count Lymph % (Auto) [place] % (Auto) Lymph # (Auto) [place] # (Auto) Baso # (Auto) Seg Neutrophils % Seg Neuts % (Manual) Lymphocytes % (Manual) Seg Neutrophils # Seg Neutrophils # Man Lymphocytes # (Manual) D-Dimer 926.11 H ABG pH POC ABG pCO2 POC ABG pO2 ABG pO2 ABG HCO3 ABG O2 Saturation ABG Base Excess ABG Hemoglobin ABG Oxyhemoglobin ABG Sodium ABG Potassium ABG Chloride ABG Glucose Oxyhemoglobin Carboxyhemoglobin Sodium Potassium Chloride Carbon Dioxide 39 H D BUN 30 H Creatinine 0.5 L Glucose 193 H POC Glucose 178 H Hemoglobin A1c Lactic Acid Calcium 7.7 L Ferritin Total Bilirubin AST 65 H ALT 132 H Alkaline Phosphatase Lactate Dehydrogenase 288 H C-Reactive Protein 1.40 H Total Protein 5.7 L Albumin 2.4 L Triglycerides Arterial Blood Glucose Arterial Blood Ionized Calcium Ur Specific [place] Vancomycin Trough Coronavirus (PCR) 11/26/20 11/26/20 11/26/20 06:04 08:47 11:20 WBC 12.4 H RBC Hgb Hct Plt Count Lymph % (Auto) [place] % (Auto) Lymph # (Auto) [place] # (Auto) Baso # (Auto) Seg Neutrophils % Seg Neuts % (Manual) 98.0 H Lymphocytes % (Manual) 1.0 L Seg Neutrophils # Seg Neutrophils # Man 12.2 H Lymphocytes # (Manual) 0.1 L D-Dimer ABG pH POC ABG pCO2 75.2 H POC ABG pO2 61.9 L ABG pO2 ABG HCO3 ABG O2 Saturation ABG Base Excess ABG Hemoglobin ABG Oxyhemoglobin 90.3 L ABG Sodium ABG Potassium ABG Chloride ABG Glucose 243 H Oxyhemoglobin Carboxyhemoglobin Sodium Potassium Chloride Carbon Dioxide BUN Creatinine Glucose POC Glucose 255 H Hemoglobin A1c Lactic Acid Calcium Ferritin Total Bilirubin AST ALT Alkaline Phosphatase Lactate Dehydrogenase C-Reactive Protein Total Protein Albumin Triglycerides Arterial Blood Glucose 243 H Arterial Blood Ionized Calcium Ur Specific [place] Vancomycin Trough Coronavirus (PCR) 11/26/20 11/26/20 11/26/20 16:20 17:15 23:41 WBC RBC Hgb Hct Plt Count Lymph % (Auto) [place] % (Auto) Lymph # (Auto) [place] # (Auto) Baso # (Auto) Seg Neutrophils % Seg Neuts % (Manual) Lymphocytes % (Manual) Seg Neutrophils # Seg Neutrophils # Man Lymphocytes # (Manual) D-Dimer ABG pH POC ABG pCO2 66.6 H POC ABG pO2 78.1 L ABG pO2 ABG HCO3 ABG O2 Saturation ABG Base Excess ABG Hemoglobin ABG Oxyhemoglobin ABG Sodium ABG Potassium ABG Chloride ABG Glucose 244 H Oxyhemoglobin Carboxyhemoglobin Sodium Potassium Chloride Carbon Dioxide BUN Creatinine Glucose POC Glucose 219 H 210 H Hemoglobin A1c Lactic Acid Calcium Ferritin Total Bilirubin AST ALT Alkaline Phosphatase Lactate Dehydrogenase C-Reactive Protein Total Protein Albumin Triglycerides Arterial Blood Glucose 244 H Arterial Blood Ionized Calcium Ur Specific [place] Vancomycin Trough Coronavirus (PCR) 11/27/20 11/27/20 11/27/20 04:46 05:38 06:25 WBC 13.8 H RBC Hgb Hct Plt Count Lymph % (Auto) 2.0 L [place] % (Auto) Lymph # (Auto) 0.3 L [place] # (Auto) Baso # (Auto) Seg Neutrophils % Seg Neuts % (Manual) 96.0 H Lymphocytes % (Manual) Seg Neutrophils # 12.7 H Seg Neutrophils # Man 13.2 H Lymphocytes # (Manual) 0.0 L D-Dimer ABG pH POC ABG pCO2 63.0 H POC ABG pO2 53.6 L ABG pO2 ABG HCO3 ABG O2 Saturation ABG Base Excess ABG Hemoglobin ABG Oxyhemoglobin 87.8 L ABG Sodium 115.4 L ABG Potassium ABG Chloride ABG Glucose 219 H Oxyhemoglobin Carboxyhemoglobin Sodium Potassium Chloride Carbon Dioxide BUN Creatinine Glucose POC Glucose 227 H Hemoglobin A1c Lactic Acid Calcium Ferritin Total Bilirubin AST ALT Alkaline Phosphatase Lactate Dehydrogenase C-Reactive Protein Total Protein Albumin Triglycerides Arterial Blood Glucose 219 H Arterial Blood Ionized Calcium Ur Specific [place] Vancomycin Trough Coronavirus (PCR) 11/27/20 11/27/20 11/27/20 06:25 18:05 23:29 WBC RBC Hgb Hct Plt Count Lymph % (Auto) [place] % (Auto) Lymph # (Auto) [place] # (Auto) Baso # (Auto) Seg Neutrophils % Seg Neuts % (Manual) Lymphocytes % (Manual) Seg Neutrophils # Seg Neutrophils # Man Lymphocytes # (Manual) D-Dimer ABG pH POC ABG pCO2 POC ABG pO2 ABG pO2 ABG HCO3 ABG O2 Saturation ABG Base Excess ABG Hemoglobin ABG Oxyhemoglobin ABG Sodium ABG Potassium ABG Chloride ABG Glucose Oxyhemoglobin Carboxyhemoglobin Sodium Potassium Chloride Carbon Dioxide 38 H BUN 34 H Creatinine 0.4 L Glucose 243 H POC Glucose 329 H 227 H Hemoglobin A1c Lactic Acid Calcium 7.9 L Ferritin Total Bilirubin AST 50 H ALT 110 H Alkaline Phosphatase Lactate Dehydrogenase C-Reactive Protein Total Protein 6.1 L Albumin 2.4 L Triglycerides Arterial Blood Glucose Arterial Blood Ionized Calcium Ur Specific [place] Vancomycin Trough Coronavirus (PCR) 11/28/20 11/28/20 11/28/20 03:45 03:45 03:46 WBC 12.2 H RBC Hgb Hct Plt Count Lymph % (Auto) [place] % (Auto) Lymph # (Auto) [place] # (Auto) Baso # (Auto) Seg Neutrophils % Seg Neuts % (Manual) 93.0 H Lymphocytes % (Manual) 2.0 L Seg Neutrophils # Seg Neutrophils # Man 11.3 H Lymphocytes # (Manual) 0.2 L D-Dimer ABG pH POC ABG pCO2 68.4 H POC ABG pO2 55.4 L ABG pO2 ABG HCO3 ABG O2 Saturation ABG Base Excess ABG Hemoglobin ABG Oxyhemoglobin ABG Sodium ABG Potassium ABG Chloride ABG Glucose 197 H Oxyhemoglobin Carboxyhemoglobin Sodium Potassium Chloride Carbon Dioxide 36 H BUN 37 H Creatinine 0.4 L Glucose 194 H POC Glucose Hemoglobin A1c Lactic Acid Calcium 8.1 L Ferritin Total Bilirubin AST ALT 86 H Alkaline Phosphatase Lactate Dehydrogenase C-Reactive Protein Total Protein 6.0 L Albumin 2.3 L Triglycerides Arterial Blood Glucose 197 H Arterial Blood Ionized Calcium Ur Specific [place] Vancomycin Trough Coronavirus (PCR) 11/28/20 11/28/20 11/29/20 05:24 12:21 04:41 WBC RBC Hgb Hct Plt Count Lymph % (Auto) [place] % (Auto) Lymph # (Auto) [place] # (Auto) Baso # (Auto) Seg Neutrophils % Seg Neuts % (Manual) Lymphocytes % (Manual) Seg Neutrophils # Seg Neutrophils # Man Lymphocytes # (Manual) D-Dimer ABG pH POC ABG pCO2 55.1 H POC ABG pO2 53.6 L ABG pO2 ABG HCO3 ABG O2 Saturation ABG Base Excess ABG Hemoglobin ABG Oxyhemoglobin 87.1 L ABG Sodium 131.2 L ABG Potassium ABG Chloride ABG Glucose 164 H Oxyhemoglobin Carboxyhemoglobin Sodium Potassium Chloride Carbon Dioxide BUN Creatinine Glucose POC Glucose 173 H 126 H Hemoglobin A1c Lactic Acid Calcium Ferritin Total Bilirubin AST ALT Alkaline Phosphatase Lactate Dehydrogenase C-Reactive Protein Total Protein Albumin Triglycerides Arterial Blood Glucose 164 H Arterial Blood Ionized Calcium 4.4 L Ur Specific [place] Vancomycin Trough Coronavirus (PCR) 11/29/20 11/29/20 11/29/20 05:29 12:41 13:28 WBC RBC Hgb Hct Plt Count Lymph % (Auto) [place] % (Auto) Lymph # (Auto) [place] # (Auto) Baso # (Auto) Seg Neutrophils % Seg Neuts % (Manual) Lymphocytes % (Manual) Seg Neutrophils # Seg Neutrophils # Man Lymphocytes # (Manual) D-Dimer ABG pH POC ABG pCO2 POC ABG pO2 ABG pO2 ABG HCO3 ABG O2 Saturation ABG Base Excess ABG Hemoglobin ABG Oxyhemoglobin ABG Sodium ABG Potassium ABG Chloride ABG Glucose Oxyhemoglobin Carboxyhemoglobin Sodium Potassium Chloride Carbon Dioxide 40 H BUN 32 H Creatinine 0.4 L Glucose 274 H POC Glucose 173 H 257 H Hemoglobin A1c Lactic Acid Calcium 7.2 L Ferritin Total Bilirubin AST 57 H ALT 102 H Alkaline Phosphatase Lactate Dehydrogenase C-Reactive Protein Total Protein 5.7 L Albumin 2.1 L Triglycerides Arterial Blood Glucose Arterial Blood Ionized Calcium Ur Specific [place] Vancomycin Trough Coronavirus (PCR) 11/29/20 11/29/20 11/29/20 15:40 17:36 21:26 WBC RBC Hgb Hct Plt Count Lymph % (Auto) [place] % (Auto) Lymph # (Auto) [place] # (Auto) Baso # (Auto) Seg Neutrophils % Seg Neuts % (Manual) Lymphocytes % (Manual) Seg Neutrophils # Seg Neutrophils # Man Lymphocytes # (Manual) D-Dimer ABG pH POC ABG pCO2 POC ABG pO2 ABG pO2 ABG HCO3 ABG O2 Saturation ABG Base Excess ABG Hemoglobin ABG Oxyhemoglobin ABG Sodium ABG Potassium ABG Chloride ABG Glucose Oxyhemoglobin Carboxyhemoglobin Sodium Potassium Chloride Carbon Dioxide BUN Creatinine Glucose POC Glucose 240 H 244 H Hemoglobin A1c Lactic Acid Calcium Ferritin Total Bilirubin AST ALT Alkaline Phosphatase Lactate Dehydrogenase C-Reactive Protein Total Protein Albumin Triglycerides Arterial Blood Glucose Arterial Blood Ionized Calcium Ur Specific [place] Vancomycin Trough 4.0 L Coronavirus (PCR) 11/29/20 11/30/20 11/30/20 23:26 03:30 03:30 WBC RBC Hgb Hct Plt Count Lymph % (Auto) [place] % (Auto) Lymph # (Auto) [place] # (Auto) Baso # (Auto) Seg Neutrophils % Seg Neuts % (Manual) 97.0 H Lymphocytes % (Manual) 1.0 L Seg Neutrophils # Seg Neutrophils # Man 9.9 H Lymphocytes # (Manual) 0.1 L D-Dimer ABG pH POC ABG pCO2 POC ABG pO2 ABG pO2 ABG HCO3 ABG O2 Saturation ABG Base Excess ABG Hemoglobin ABG Oxyhemoglobin ABG Sodium ABG Potassium ABG Chloride ABG Glucose Oxyhemoglobin Carboxyhemoglobin Sodium Potassium Chloride Carbon Dioxide 38 H BUN 34 H Creatinine 0.4 L Glucose 305 H POC Glucose 283 H Hemoglobin A1c Lactic Acid Calcium 7.6 L Ferritin Total Bilirubin AST ALT 89 H Alkaline Phosphatase Lactate Dehydrogenase C-Reactive Protein Total Protein 6.0 L Albumin 2.3 L Triglycerides Arterial Blood Glucose Arterial Blood Ionized Calcium Ur Specific [place] Vancomycin Trough Coronavirus (PCR) 11/30/20 11/30/20 11/30/20 03:57 05:22 12:05 WBC RBC Hgb Hct Plt Count Lymph % (Auto) [place] % (Auto) Lymph # (Auto) [place] # (Auto) Baso # (Auto) Seg Neutrophils % Seg Neuts % (Manual) Lymphocytes % (Manual) Seg Neutrophils # Seg Neutrophils # Man Lymphocytes # (Manual) D-Dimer ABG pH POC ABG pCO2 60.8 H POC ABG pO2 51.1 L ABG pO2 ABG HCO3 ABG O2 Saturation ABG Base Excess ABG Hemoglobin ABG Oxyhemoglobin 84.6 L ABG Sodium ABG Potassium ABG Chloride ABG Glucose 315 H Oxyhemoglobin Carboxyhemoglobin Sodium Potassium Chloride Carbon Dioxide BUN Creatinine Glucose POC Glucose 295 H 413 H Hemoglobin A1c Lactic Acid Calcium Ferritin Total Bilirubin AST ALT Alkaline Phosphatase Lactate Dehydrogenase C-Reactive Protein Total Protein Albumin Triglycerides Arterial Blood Glucose 315 H Arterial Blood Ionized Calcium 4.5 L Ur Specific [place] Vancomycin Trough Coronavirus (PCR) 11/30/20 11/30/20 12/01/20 17:24 23:25 02:14 WBC RBC Hgb Hct Plt Count Lymph % (Auto) [place] % (Auto) Lymph # (Auto) [place] # (Auto) Baso # (Auto) Seg Neutrophils % Seg Neuts % (Manual) Lymphocytes % (Manual) Seg Neutrophils # Seg Neutrophils # Man Lymphocytes # (Manual) D-Dimer ABG pH 7.278 L POC ABG pCO2 78.1 H POC ABG pO2 79.5 L ABG pO2 ABG HCO3 ABG O2 Saturation ABG Base Excess ABG Hemoglobin 11.6 L ABG Oxyhemoglobin ABG Sodium 134.5 L ABG Potassium 4.6 H ABG Chloride ABG Glucose 286 H Oxyhemoglobin Carboxyhemoglobin Sodium Potassium Chloride Carbon Dioxide BUN Creatinine Glucose POC Glucose 305 H 302 H Hemoglobin A1c Lactic Acid Calcium Ferritin Total Bilirubin AST ALT Alkaline Phosphatase Lactate Dehydrogenase C-Reactive Protein Total Protein Albumin Triglycerides Arterial Blood Glucose 286 H Arterial Blood Ionized Calcium Ur Specific [place] Vancomycin Trough Coronavirus (PCR) 12/01/20 12/01/20 12/01/20 03:35 03:35 05:22 WBC 13.4 H RBC 3.54 L Hgb 10.4 L Hct 31.8 L Plt Count Lymph % (Auto) [place] % (Auto) Lymph # (Auto) [place] # (Auto) Baso # (Auto) Seg Neutrophils % Seg Neuts % (Manual) 95.0 H Lymphocytes % (Manual) 3.0 L Seg Neutrophils # Seg Neutrophils # Man 12.7 H Lymphocytes # (Manual) 0.4 L D-Dimer ABG pH POC ABG pCO2 POC ABG pO2 ABG pO2 ABG HCO3 ABG O2 Saturation ABG Base Excess ABG Hemoglobin ABG Oxyhemoglobin ABG Sodium ABG Potassium ABG Chloride ABG Glucose Oxyhemoglobin Carboxyhemoglobin Sodium Potassium Chloride Carbon Dioxide 35 H BUN 34 H Creatinine 0.5 L Glucose 279 H POC Glucose 259 H Hemoglobin A1c Lactic Acid Calcium 7.6 L Ferritin Total Bilirubin AST ALT 63 H Alkaline Phosphatase Lactate Dehydrogenase C-Reactive Protein Total Protein 4.8 L Albumin 2.1 L Triglycerides Arterial Blood Glucose Arterial Blood Ionized Calcium Ur Specific [place] Vancomycin Trough Coronavirus (PCR) 12/01/20 12/01/20 12/01/20 12:05 17:40 23:46 WBC RBC Hgb Hct Plt Count Lymph % (Auto) [place] % (Auto) Lymph # (Auto) [place] # (Auto) Baso # (Auto) Seg Neutrophils % Seg Neuts % (Manual) Lymphocytes % (Manual) Seg Neutrophils # Seg Neutrophils # Man Lymphocytes # (Manual) D-Dimer ABG pH POC ABG pCO2 POC ABG pO2 ABG pO2 ABG HCO3 ABG O2 Saturation ABG Base Excess ABG Hemoglobin ABG Oxyhemoglobin ABG Sodium ABG Potassium ABG Chloride ABG Glucose Oxyhemoglobin Carboxyhemoglobin Sodium Potassium Chloride Carbon Dioxide BUN Creatinine Glucose POC Glucose 197 H 244 H 284 H Hemoglobin A1c Lactic Acid Calcium Ferritin Total Bilirubin AST ALT Alkaline Phosphatase Lactate Dehydrogenase C-Reactive Protein Total Protein Albumin Triglycerides Arterial Blood Glucose Arterial Blood Ionized Calcium Ur Specific [place] Vancomycin Trough Coronavirus (PCR) 12/02/20 12/02/20 12/02/20 02:14 03:03 04:11 WBC 16.5 H RBC 3.55 L Hgb 10.5 L Hct 31.9 L Plt Count Lymph % (Auto) [place] % (Auto) Lymph # (Auto) [place] # (Auto) Baso # (Auto) Seg Neutrophils % Seg Neuts % (Manual) 90.0 H Lymphocytes % (Manual) 3.0 L Seg Neutrophils # Seg Neutrophils # Man 14.9 H Lymphocytes # (Manual) 0.5 L D-Dimer ABG pH POC ABG pCO2 74.8 H POC ABG pO2 58.9 L ABG pO2 ABG HCO3 ABG O2 Saturation ABG Base Excess ABG Hemoglobin 11.5 L ABG Oxyhemoglobin ABG Sodium ABG Potassium ABG Chloride ABG Glucose 264 H Oxyhemoglobin Carboxyhemoglobin Sodium Potassium Chloride Carbon Dioxide 37 H BUN 30 H Creatinine 0.4 L Glucose 245 H POC Glucose Hemoglobin A1c Lactic Acid Calcium 7.5 L Ferritin Total Bilirubin AST ALT Alkaline Phosphatase Lactate Dehydrogenase C-Reactive Protein Total Protein 5.2 L Albumin 2.2 L Triglycerides Arterial Blood Glucose 264 H Arterial Blood Ionized Calcium 4.5 L Ur Specific [place] Vancomycin Trough Coronavirus (PCR) 12/02/20 12/02/20 12/02/20 05:19 11:46 17:52 WBC RBC Hgb Hct Plt Count Lymph % (Auto) [place] % (Auto) Lymph # (Auto) [place] # (Auto) Baso # (Auto) Seg Neutrophils % Seg Neuts % (Manual) Lymphocytes % (Manual) Seg Neutrophils # Seg Neutrophils # Man Lymphocytes # (Manual) D-Dimer ABG pH POC ABG pCO2 POC ABG pO2 ABG pO2 ABG HCO3 ABG O2 Saturation ABG Base Excess ABG Hemoglobin ABG Oxyhemoglobin ABG Sodium ABG Potassium ABG Chloride ABG Glucose Oxyhemoglobin Carboxyhemoglobin Sodium Potassium Chloride Carbon Dioxide BUN Creatinine Glucose POC Glucose 238 H 236 H 233 H Hemoglobin A1c Lactic Acid Calcium Ferritin Total Bilirubin AST ALT Alkaline Phosphatase Lactate Dehydrogenase C-Reactive Protein Total Protein Albumin Triglycerides Arterial Blood Glucose Arterial Blood Ionized Calcium Ur Specific [place] Vancomycin Trough Coronavirus (PCR) 12/02/20 12/03/20 12/03/20 23:23 03:21 04:35 WBC RBC Hgb Hct Plt Count 112 L Lymph % (Auto) [place] % (Auto) Lymph # (Auto) [place] # (Auto) Baso # (Auto) Seg Neutrophils % Seg Neuts % (Manual) 93.0 H Lymphocytes % (Manual) 4.0 L Seg Neutrophils # Seg Neutrophils # Man 9.1 H Lymphocytes # (Manual) 0.4 L D-Dimer ABG pH 7.299 L POC ABG pCO2 82.1 H POC ABG pO2 62.4 L ABG pO2 ABG HCO3 ABG O2 Saturation ABG Base Excess ABG Hemoglobin 11.5 L ABG Oxyhemoglobin 89.6 L ABG Sodium 134.3 L ABG Potassium ABG Chloride 95.0 L ABG Glucose 203 H Oxyhemoglobin Carboxyhemoglobin Sodium Potassium Chloride Carbon Dioxide BUN Creatinine Glucose POC Glucose 213 H Hemoglobin A1c Lactic Acid Calcium Ferritin Total Bilirubin AST ALT Alkaline Phosphatase Lactate Dehydrogenase C-Reactive Protein Total Protein Albumin Triglycerides Arterial Blood Glucose 203 H Arterial Blood Ionized Calcium 4.5 L Ur Specific [place] Vancomycin Trough Coronavirus (PCR) 12/03/20 12/03/20 12/03/20 04:35 05:42 11:28 WBC RBC Hgb Hct Plt Count Lymph % (Auto) [place] % (Auto) Lymph # (Auto) [place] # (Auto) Baso # (Auto) Seg Neutrophils % Seg Neuts % (Manual) Lymphocytes % (Manual) Seg Neutrophils # Seg Neutrophils # Man Lymphocytes # (Manual) D-Dimer ABG pH POC ABG pCO2 POC ABG pO2 ABG pO2 ABG HCO3 ABG O2 Saturation ABG Base Excess ABG Hemoglobin ABG Oxyhemoglobin ABG Sodium ABG Potassium ABG Chloride ABG Glucose Oxyhemoglobin Carboxyhemoglobin Sodium Potassium Chloride 97.8 L Carbon Dioxide 43 H* BUN 25 H Creatinine 0.3 L Glucose 214 H POC Glucose 193 H 211 H Hemoglobin A1c Lactic Acid Calcium 7.7 L Ferritin Total Bilirubin AST ALT 63 H Alkaline Phosphatase 132 H Lactate Dehydrogenase C-Reactive Protein Total Protein 5.1 L Albumin 2.4 L Triglycerides Arterial Blood Glucose Arterial Blood Ionized Calcium Ur Specific [place] Vancomycin Trough Coronavirus (PCR) 12/03/20 12/03/20 12/04/20 17:45 23:57 00:11 WBC RBC Hgb Hct Plt Count Lymph % (Auto) [place] % (Auto) Lymph # (Auto) [place] # (Auto) Baso # (Auto) Seg Neutrophils % Seg Neuts % (Manual) Lymphocytes % (Manual) Seg Neutrophils # Seg Neutrophils # Man Lymphocytes # (Manual) D-Dimer ABG pH POC ABG pCO2 POC ABG pO2 ABG pO2 ABG HCO3 ABG O2 Saturation ABG Base Excess ABG Hemoglobin ABG Oxyhemoglobin ABG Sodium ABG Potassium ABG Chloride ABG Glucose Oxyhemoglobin Carboxyhemoglobin Sodium Potassium Chloride Carbon Dioxide BUN Creatinine Glucose POC Glucose 231 H 240 H 239 H Hemoglobin A1c Lactic Acid Calcium Ferritin Total Bilirubin AST ALT Alkaline Phosphatase Lactate Dehydrogenase C-Reactive Protein Total Protein Albumin Triglycerides Arterial Blood Glucose Arterial Blood Ionized Calcium Ur Specific [place] Vancomycin Trough Coronavirus (PCR) 12/04/20 12/04/20 12/04/20 04:00 05:20 05:34 WBC RBC Hgb Hct Plt Count Lymph % (Auto) [place] % (Auto) Lymph # (Auto) [place] # (Auto) Baso # (Auto) Seg Neutrophils % Seg Neuts % (Manual) Lymphocytes % (Manual) Seg Neutrophils # Seg Neutrophils # Man Lymphocytes # (Manual) D-Dimer ABG pH POC ABG pCO2 84.4 H POC ABG pO2 68.0 L ABG pO2 ABG HCO3 ABG O2 Saturation ABG Base Excess ABG Hemoglobin 11.6 L ABG Oxyhemoglobin ABG Sodium 130.9 L ABG Potassium ABG Chloride 90.0 L ABG Glucose 244 H Oxyhemoglobin Carboxyhemoglobin Sodium Potassium Chloride Carbon Dioxide BUN Creatinine Glucose POC Glucose 241 H 213 H Hemoglobin A1c Lactic Acid Calcium Ferritin Total Bilirubin AST ALT Alkaline Phosphatase Lactate Dehydrogenase C-Reactive Protein Total Protein Albumin Triglycerides Arterial Blood Glucose 244 H Arterial Blood Ionized Calcium 4.4 L Ur Specific [place] Vancomycin Trough Coronavirus (PCR) 12/04/20 12/04/20 12/04/20 11:36 16:53 23:32 WBC RBC Hgb Hct Plt Count Lymph % (Auto) [place] % (Auto) Lymph # (Auto) [place] # (Auto) Baso # (Auto) Seg Neutrophils % Seg Neuts % (Manual) Lymphocytes % (Manual) Seg Neutrophils # Seg Neutrophils # Man Lymphocytes # (Manual) D-Dimer ABG pH POC ABG pCO2 POC ABG pO2 ABG pO2 ABG HCO3 ABG O2 Saturation ABG Base Excess ABG Hemoglobin ABG Oxyhemoglobin ABG Sodium ABG Potassium ABG Chloride ABG Glucose Oxyhemoglobin Carboxyhemoglobin Sodium Potassium Chloride Carbon Dioxide BUN Creatinine Glucose POC Glucose 196 H 127 H 230 H Hemoglobin A1c Lactic Acid Calcium Ferritin Total Bilirubin AST ALT Alkaline Phosphatase Lactate Dehydrogenase C-Reactive Protein Total Protein Albumin Triglycerides Arterial Blood Glucose Arterial Blood Ionized Calcium Ur Specific [place] Vancomycin Trough Coronavirus (PCR) 12/04/20 12/05/20 12/05/20 Unknown 04:16 05:21 WBC RBC Hgb Hct Plt Count Lymph % (Auto) [place] % (Auto) Lymph # (Auto) [place] # (Auto) Baso # (Auto) Seg Neutrophils % Seg Neuts % (Manual) Lymphocytes % (Manual) Seg Neutrophils # Seg Neutrophils # Man Lymphocytes # (Manual) D-Dimer ABG pH POC ABG pCO2 86.7 H POC ABG pO2 58.0 L ABG pO2 ABG HCO3 ABG O2 Saturation ABG Base Excess ABG Hemoglobin 11.6 L ABG Oxyhemoglobin 89 L ABG Sodium 130.1 L ABG Potassium 4.9 H ABG Chloride 89.0 L ABG Glucose 254 H Oxyhemoglobin Carboxyhemoglobin Sodium 136 L Potassium Chloride 90.0 L Carbon Dioxide 46 H* BUN 24 H Creatinine 0.3 L Glucose 226 H POC Glucose 213 H Hemoglobin A1c Lactic Acid Calcium 7.6 L Ferritin Total Bilirubin AST 46 H ALT 78 H Alkaline Phosphatase 172 H Lactate Dehydrogenase C-Reactive Protein Total Protein 6.0 L Albumin 2.8 L Triglycerides 156 H Arterial Blood Glucose 254 H Arterial Blood Ionized Calcium 4.4 L Ur Specific [place] Vancomycin Trough Coronavirus (PCR) 12/05/20 12/05/20 12/05/20 11:22 17:26 23:38 WBC RBC Hgb Hct Plt Count Lymph % (Auto) [place] % (Auto) Lymph # (Auto) [place] # (Auto) Baso # (Auto) Seg Neutrophils % Seg Neuts % (Manual) Lymphocytes % (Manual) Seg Neutrophils # Seg Neutrophils # Man Lymphocytes # (Manual) D-Dimer ABG pH POC ABG pCO2 POC ABG pO2 ABG pO2 ABG HCO3 ABG O2 Saturation ABG Base Excess ABG Hemoglobin ABG Oxyhemoglobin ABG Sodium ABG Potassium ABG Chloride ABG Glucose Oxyhemoglobin Carboxyhemoglobin Sodium Potassium Chloride Carbon Dioxide BUN Creatinine Glucose POC Glucose 212 H 157 H 204 H Hemoglobin A1c Lactic Acid Calcium Ferritin Total Bilirubin AST ALT Alkaline Phosphatase Lactate Dehydrogenase C-Reactive Protein Total Protein Albumin Triglycerides Arterial Blood Glucose Arterial Blood Ionized Calcium Ur Specific [place] Vancomycin Trough Coronavirus (PCR) 12/06/20 12/06/20 12/06/20 04:31 04:31 05:12 WBC 17.0 H RBC 3.63 L Hgb 10.8 L D Hct 32.6 L D Plt Count Lymph % (Auto) [place] % (Auto) Lymph # (Auto) [place] # (Auto) Baso # (Auto) Seg Neutrophils % Seg Neuts % (Manual) Lymphocytes % (Manual) Seg Neutrophils # Seg Neutrophils # Man Lymphocytes # (Manual) D-Dimer ABG pH POC ABG pCO2 85.9 H POC ABG pO2 57.6 L ABG pO2 ABG HCO3 ABG O2 Saturation ABG Base Excess ABG Hemoglobin ABG Oxyhemoglobin ABG Sodium 131.2 L ABG Potassium 4.8 H ABG Chloride 86.0 L ABG Glucose 200 H Oxyhemoglobin Carboxyhemoglobin Sodium 134 L Potassium 5.1 H Chloride 88.4 L Carbon Dioxide 47 H* BUN 23 H Creatinine 0.3 L Glucose 206 H POC Glucose Hemoglobin A1c Lactic Acid Calcium 8.3 L Ferritin Total Bilirubin AST 48 H ALT 91 H Alkaline Phosphatase 140 H Lactate Dehydrogenase C-Reactive Protein Total Protein 5.7 L Albumin 2.6 L Triglycerides Arterial Blood Glucose 200 H Arterial Blood Ionized Calcium 4.4 L Ur Specific [place] Vancomycin Trough Coronavirus (PCR) 12/06/20 12/06/20 12/06/20 05:24 12:18 16:45 WBC RBC Hgb Hct Plt Count Lymph % (Auto) [place] % (Auto) Lymph # (Auto) [place] # (Auto) Baso # (Auto) Seg Neutrophils % Seg Neuts % (Manual) Lymphocytes % (Manual) Seg Neutrophils # Seg Neutrophils # Man Lymphocytes # (Manual) D-Dimer ABG pH POC ABG pCO2 POC ABG pO2 ABG pO2 ABG HCO3 ABG O2 Saturation ABG Base Excess ABG Hemoglobin ABG Oxyhemoglobin ABG Sodium ABG Potassium ABG Chloride ABG Glucose Oxyhemoglobin Carboxyhemoglobin Sodium Potassium Chloride Carbon Dioxide BUN Creatinine Glucose POC Glucose 186 H 187 H 150 H Hemoglobin A1c Lactic Acid Calcium Ferritin Total Bilirubin AST ALT Alkaline Phosphatase Lactate Dehydrogenase C-Reactive Protein Total Protein Albumin Triglycerides Arterial Blood Glucose Arterial Blood Ionized Calcium Ur Specific [place] Vancomycin Trough Coronavirus (PCR) 12/06/20 12/07/20 12/07/20 23:43 05:20 05:21 WBC RBC Hgb Hct Plt Count Lymph % (Auto) [place] % (Auto) Lymph # (Auto) [place] # (Auto) Baso # (Auto) Seg Neutrophils % Seg Neuts % (Manual) Lymphocytes % (Manual) Seg Neutrophils # Seg Neutrophils # Man Lymphocytes # (Manual) D-Dimer ABG pH POC ABG pCO2 POC ABG pO2 ABG pO2 48.4 L ABG HCO3 50.8 H ABG O2 Saturation 86.2 L ABG Base Excess 22.4 H ABG Hemoglobin 11.0 L ABG Oxyhemoglobin ABG Sodium ABG Potassium ABG Chloride ABG Glucose Oxyhemoglobin 84.0 L Carboxyhemoglobin Sodium Potassium Chloride Carbon Dioxide BUN Creatinine Glucose POC Glucose 153 H 107 H Hemoglobin A1c Lactic Acid Calcium Ferritin Total Bilirubin AST ALT Alkaline Phosphatase Lactate Dehydrogenase C-Reactive Protein Total Protein Albumin Triglycerides Arterial Blood Glucose Arterial Blood Ionized Calcium Ur Specific [place] Vancomycin Trough Coronavirus (PCR) 0212/07/20 12/07/20 13:20 14:28 17:35 WBC RBC Hgb Hct Plt Count Lymph % (Auto) [place] % (Auto) Lymph # (Auto) [place] # (Auto) Baso # (Auto) Seg Neutrophils % Seg Neuts % (Manual) Lymphocytes % (Manual) Seg Neutrophils # Seg Neutrophils # Man Lymphocytes # (Manual) D-Dimer ABG pH POC ABG pCO2 74.1 H POC ABG pO2 68.5 L ABG pO2 ABG HCO3 ABG O2 Saturation ABG Base Excess ABG Hemoglobin 10.7 L ABG Oxyhemoglobin 91.9 L ABG Sodium 132.2 L ABG Potassium 4.7 H ABG Chloride 88.0 L ABG Glucose 138 H Oxyhemoglobin Carboxyhemoglobin Sodium 134 L Potassium Chloride 87.4 L Carbon Dioxide 49 H* BUN Creatinine 0.2 L Glucose 132 H POC Glucose 176 H Hemoglobin A1c Lactic Acid Calcium 7.7 L Ferritin Total Bilirubin AST ALT Alkaline Phosphatase Lactate Dehydrogenase C-Reactive Protein Total Protein Albumin Triglycerides Arterial Blood Glucose 138 H Arterial Blood Ionized Calcium 4.0 L Ur Specific [place] Vancomycin Trough Coronavirus (PCR) 12/07/20 12/08/20 12/08/20 23:44 04:12 05:29 WBC RBC Hgb Hct Plt Count Lymph % (Auto) [place] % (Auto) Lymph # (Auto) [place] # (Auto) Baso # (Auto) Seg Neutrophils % Seg Neuts % (Manual) Lymphocytes % (Manual) Seg Neutrophils # Seg Neutrophils # Man Lymphocytes # (Manual) D-Dimer ABG pH POC ABG pCO2 POC ABG pO2 ABG pO2 69.7 L ABG HCO3 50.1 H ABG O2 Saturation ABG Base Excess 21.6 H ABG Hemoglobin 10.9 L ABG Oxyhemoglobin ABG Sodium ABG Potassium ABG Chloride ABG Glucose Oxyhemoglobin 93.2 L Carboxyhemoglobin Sodium Potassium Chloride Carbon Dioxide BUN Creatinine Glucose POC Glucose 143 H 143 H Hemoglobin A1c Lactic Acid Calcium Ferritin Total Bilirubin AST ALT Alkaline Phosphatase Lactate Dehydrogenase C-Reactive Protein Total Protein Albumin Triglycerides Arterial Blood Glucose Arterial Blood Ionized Calcium Ur Specific [place] Vancomycin Trough Coronavirus (PCR) 12/08/20 12/08/20 12/09/20 06:10 06:10 04:24 WBC 12.0 H RBC 3.18 L Hgb 9.5 L Hct 28.9 L Plt Count Lymph % (Auto) [place] % (Auto) Lymph # (Auto) [place] # (Auto) Baso # (Auto) Seg Neutrophils % Seg Neuts % (Manual) 95.0 H Lymphocytes % (Manual) 3.0 L Seg Neutrophils # Seg Neutrophils # Man 11.4 H Lymphocytes # (Manual) 0.4 L D-Dimer ABG pH POC ABG pCO2 76.2 H POC ABG pO2 52.8 L ABG pO2 ABG HCO3 ABG O2 Saturation ABG Base Excess ABG Hemoglobin 11.7 L ABG Oxyhemoglobin ABG Sodium 132.0 L ABG Potassium ABG Chloride 87.0 L ABG Glucose 118 H Oxyhemoglobin Carboxyhemoglobin Sodium 133 L Potassium Chloride 86.3 L Carbon Dioxide 53 H* BUN Creatinine 0.2 L Glucose 156 H POC Glucose Hemoglobin A1c Lactic Acid Calcium 7.6 L Ferritin Total Bilirubin AST ALT Alkaline Phosphatase Lactate Dehydrogenase C-Reactive Protein Total Protein Albumin Triglycerides Arterial Blood Glucose 118 H Arterial Blood Ionized Calcium 4.2 L Ur Specific [place] Vancomycin Trough Coronavirus (PCR) 12/09/20 12/09/20 12/09/20 05:44 06:40 06:40 WBC 13.5 H RBC 3.28 L Hgb 9.7 L Hct 29.9 L Plt Count Lymph % (Auto) [place] % (Auto) Lymph # (Auto) [place] # (Auto) Baso # (Auto) Seg Neutrophils % Seg Neuts % (Manual) Lymphocytes % (Manual) Seg Neutrophils # Seg Neutrophils # Man Lymphocytes # (Manual) D-Dimer ABG pH POC ABG pCO2 POC ABG pO2 ABG pO2 ABG HCO3 ABG O2 Saturation ABG Base Excess ABG Hemoglobin ABG Oxyhemoglobin ABG Sodium ABG Potassium ABG Chloride ABG Glucose Oxyhemoglobin Carboxyhemoglobin Sodium 135 L Potassium Chloride 89.5 L Carbon Dioxide 52 H* BUN Creatinine 0.3 L Glucose 114 H POC Glucose 117 H Hemoglobin A1c Lactic Acid Calcium 7.6 L Ferritin Total Bilirubin AST ALT Alkaline Phosphatase Lactate Dehydrogenase C-Reactive Protein Total Protein Albumin Triglycerides Arterial Blood Glucose Arterial Blood Ionized Calcium Ur Specific [place] Vancomycin Trough Coronavirus (PCR) 12/09/20 12/09/20 12/10/20 16:42 21:11 04:28 WBC RBC Hgb Hct Plt Count Lymph % (Auto) [place] % (Auto) Lymph # (Auto) [place] # (Auto) Baso # (Auto) Seg Neutrophils % Seg Neuts % (Manual) Lymphocytes % (Manual) Seg Neutrophils # Seg Neutrophils # Man Lymphocytes # (Manual) D-Dimer ABG pH POC ABG pCO2 72.5 H 69.4 H 76.9 H POC ABG pO2 50.4 L 80.6 L 60.2 L ABG pO2 ABG HCO3 ABG O2 Saturation ABG Base Excess ABG Hemoglobin 10.4 L 10.7 L 10 L ABG Oxyhemoglobin 84.3 L 89.7 L ABG Sodium 133.7 L 133.7 L 133.8 L ABG Potassium ABG Chloride 90.0 L 91.0 L 91.0 L ABG Glucose 116 H 96 H 57 L Oxyhemoglobin Carboxyhemoglobin 0.4 L Sodium Potassium Chloride Carbon Dioxide BUN Creatinine Glucose POC Glucose Hemoglobin A1c Lactic Acid Calcium Ferritin Total Bilirubin AST ALT Alkaline Phosphatase Lactate Dehydrogenase C-Reactive Protein Total Protein Albumin Triglycerides Arterial Blood Glucose 116 H 96 H 57 L Arterial Blood Ionized Calcium 4.2 L 4.3 L 4.2 L Ur Specific [place] Vancomycin Trough Coronavirus (PCR) 12/10/20 12/10/20 05:09 05:41 WBC RBC Hgb Hct Plt Count Lymph % (Auto) [place] % (Auto) Lymph # (Auto) [place] # (Auto) Baso # (Auto) Seg Neutrophils % Seg Neuts % (Manual) Lymphocytes % (Manual) Seg Neutrophils # Seg Neutrophils # Man Lymphocytes # (Manual) D-Dimer ABG pH POC ABG pCO2 POC ABG pO2 ABG pO2 ABG HCO3 ABG O2 Saturation ABG Base Excess ABG Hemoglobin ABG Oxyhemoglobin ABG Sodium ABG Potassium ABG Chloride ABG Glucose Oxyhemoglobin Carboxyhemoglobin Sodium Potassium Chloride Carbon Dioxide BUN Creatinine Glucose POC Glucose 41 L 138 H Hemoglobin A1c Lactic Acid Calcium Ferritin Total Bilirubin AST ALT Alkaline Phosphatase Lactate Dehydrogenase C-Reactive Protein Total Protein Albumin Triglycerides Arterial Blood Glucose Arterial Blood Ionized Calcium Ur Specific [place] Vancomycin Trough Coronavirus (PCR)
[2020-12-10] MEDS: NORepinephrine/NS 4 MG-250 ML 4 MG/250 ML BAG IV SCH (15:02)
--- NOTE | 2020-12-10 15:15 | Progress Note ---
Assessment and Plan 59-year-old male with 1. COVID PNA 2. VDRF 3. sepsis 4. Bilateral pneumothorax s/p bilateral chest tube placement CXR 12/09/2020: Satisfactory positioning of chest tubes. No PTX. SubQ emphysema unchanged VENT: FIO2 100%, PEEP 18, TV: 425 RR: 30 Plan: 1. Vent management per ICU team 2. Continue b/l chest tubes to -[id number] suction 3. routine CXRs 4. DVT ppx 5. No indication to place additional chest tubes as CXR does not show worsening PTX. SubQ emphysema will remain persistent until PEEP can be weaned. If chest tube becomes clogged or PTX worsening on CXR, then may consider placement of another tube. Very guarded prognosis. Will follow peripherally. Thank you. Please call with any questions or concerns. Evaluation and treatment of this patient was during the time of the national and state emergency arising from COVID19 coronavirus pandemic. Treatment and procedures performed meet the current and available best practice and guidelines for patient during the COVID pandemic. Subjective Date of service: 12/10/20 Narrative: Pt seen and examined. O2 requirements on vent increased overnight and this am. Objective Vital Signs - 12hr 12/10/20 12/10/20 12/10/20 03:30 04:00 04:25 Temperature 99.3 F Pulse Rate 92 H 88 92 H Pulse Rate [ 88 From Monitor] Respiratory 19 30 H Rate Blood Pressure 81/57 89/49 84/47 O2 Sat by Pulse 95 94 96 Oximetry 12/10/20 12/10/20 12/10/20 04:30 05:00 05:30 Temperature Pulse Rate 103 H 86 90 Pulse Rate [ From Monitor] Respiratory 23 30 H 30 H Rate Blood Pressure 84/47 92/52 90/51 O2 Sat by Pulse 95 97 98 Oximetry 12/10/20 12/10/20 12/10/20 06:00 06:30 07:00 Temperature 98.7 F Pulse Rate 86 88 88 Pulse Rate [ From Monitor] Respiratory 30 H 23 26 H Rate Blood Pressure 94/51 89/52 93/54 O2 Sat by Pulse 97 96 96 Oximetry 12/10/20 12/10/20 12/10/20 07:30 08:00 08:21 Temperature 98.7 F Pulse Rate 101 H 103 H 100 H Pulse Rate [ 104 H From Monitor] Respiratory 29 H 18 Rate Blood Pressure 87/48 137/73 129/70 O2 Sat by Pulse 97 97 93 Oximetry 12/10/20 12/10/20 12/10/20 08:30 09:00 09:30 Temperature Pulse Rate 101 H 111 H 114 H Pulse Rate [ From Monitor] Respiratory 17 18 16 Rate Blood Pressure 147/77 129/68 126/63 O2 Sat by Pulse 96 96 93 Oximetry 12/10/20 12/10/20 12/10/20 10:00 10:30 11:00 Temperature Pulse Rate 118 H 119 H 115 H Pulse Rate [ From Monitor] Respiratory 30 H 29 H 30 H Rate Blood Pressure 103/62 102/60 111/61 O2 Sat by Pulse 92 93 91 Oximetry 12/10/20 12/10/20 12/10/20 11:30 12:00 12:30 Temperature 99.4 F Pulse Rate 124 H 114 H 117 H Pulse Rate [ 114 H From Monitor] Respiratory 28 H 20 24 Rate Blood Pressure 95/53 102/58 103/58 O2 Sat by Pulse 93 96 95 Oximetry 12/10/20 12/10/20 12/10/20 13:00 13:30 13:45 Temperature Pulse Rate 117 H 115 H 110 H Pulse Rate [ From Monitor] Respiratory 26 H 23 Rate Blood Pressure 105/57 102/57 108/53 O2 Sat by Pulse 94 95 95 Oximetry - General physical appearance Narrative Exam: Gen.: Intubated, sedated. Generalized anasarca ENT: ET tube and OG tube in place. Trachea midline. Moderate improvement in subq emphysema of upper neck and face CV: S1, S2 present Respiratory: Bilateral chest tubes patent. Serous drainage from both chest tube s- minimal. No active bleeding at chest tube insertion sites. No air leak. Subq emphysema of chest wall unchanged, soft and compressible Extremities: Generalized edema - Labs 12/09/20 06:40 12/09/20 06:40
--- NOTE | 2020-12-10 19:17 | Progress Note ---
Assessment and Plan Cultures: SARS CoV-2 PCR: positive Blood culture: No growth 11/21/2020 tracheal aspirate culture: MRSA 12/09/2020 blood culture: Pending A/P: 59-year-old male: #Bilateral pneumonia: secondary to COVID-19. Admission labs showed leukocytosis, D-dimer greater than 10,000, ferritin 672, CRP 19.8, LDH 663, creatinine 0.6, procalcitonin 0.51. Completed 5 days of abx, remdesivir. #MRSA on ET aspirate culture, ?colonization v/s true disease, difficult to dif ferentiate. S/P abx. #Right-sided pneumothorax and pneumomediastinum: Underwent placement of right- sided chest tube, likely secondary to COVID-19. #Acute hypoxic respiratory failure: Failed BiPAP. Remains on the vent. #Elevated d-dimer: DVT scan negative. Unable to get CTA Chest due to patients unstable clinical status #Transaminitis: secondary to COVID-19. Recs: -continue off antibiotics at this time -Continue prophylactic anticoagulation based on d-dimer per hospital protocol -guarded prognosis -If fevers above 100.4 would reculture and start empiric vancomycin and cefepime. Rm Carrillo MD [facility] ([facility] O: [phone] F: [phone] Subjective Date of service: 12/10/20 Principal diagnosis: COVID-19 Interval history: Afebrile T-max 100.2 with a white count 13.5 Imaging personally viewed: Chest x-ray: Unchanged airspace disease Objective - Exam Narrative Exam: Physical exam deferred due to PPE conservation strategy. Please refer to primary team's note. - Constitutional Vitals: Vital Signs Temp Pulse Resp BP Pulse Ox 100.2 F H 77 30 H 110/62 100 12/10/20 16:10 12/10/20 19:00 12/10/20 19:00 12/10/20 19:00 12/10/20 19:00 Temperature -Last 24 Hours Temperature 100.2 F Temperature 99.4 F Temperature 98.7 F Temperature 98.7 F Temperature 99.3 F Temperature 99.5 F Temperature 98.9 F - Labs CBC & Chem 7: 12/09/20 06:40 12/09/20 06:40 Labs: Abnormal lab results 12/09/20 12/10/20 12/10/20 Range/Units 21:11 04:28 05:09 POC ABG pCO2 69.4 H 76.9 H (32.0-48.0) mmHg POC ABG pO2 80.6 L 60.2 L (83-108) mmHg ABG Hemoglobin 10.7 L 10 L (12.0-17.5) ABG Oxyhemoglobin 89.7 L (94-98) ABG Sodium 133.7 L 133.8 L (136.0-145.0) mmol/L ABG Chloride 91.0 L 91.0 L (98-107) mmol/L ABG Glucose 96 H 57 L (65-95) mg/dL Carboxyhemoglobin 0.4 L (0.5-1.5) POC Glucose 41 L (70-105) mg/dL Arterial Blood Glucose 96 H 57 L (65-95) mg/dL Arterial Blood Ionized Calcium 4.3 L 4.2 L (4.6-5.3) mg/dL 12/10/20 12/10/20 Range/Units 05:41 11:50 POC ABG pCO2 (32.0-48.0) mmHg POC ABG pO2 (83-108) mmHg ABG Hemoglobin (12.0-17.5) ABG Oxyhemoglobin (94-98) ABG Sodium (136.0-145.0) mmol/L ABG Chloride (98-107) mmol/L ABG Glucose (65-95) mg/dL Carboxyhemoglobin (0.5-1.5) POC Glucose 138 H 106 H (70-105) mg/dL Arterial Blood Glucose (65-95) mg/dL Arterial Blood Ionized Calcium (4.6-5.3) mg/dL
[2020-12-10] MEDS: ENOXAPARIN 40 MG/0.4 ML INJ SUB-Q SCH (21:08)
[2020-12-11] MEDS: fentaNYL DRIP Premix 2,000 MCG/100 ML BAG IV SCH ×3 (03:26→18:21)
[2020-12-11] MEDS: INSULIN LISPRO 100 UNIT/ML SUB-Q SCH ×3 (05:28→17:17)
[2020-12-11] MEDS: NORepinephrine/NS 4 MG-250 ML 4 MG/250 ML BAG IV SCH (08:16)
[2020-12-11] MEDS: methylPREDNISolone Sod Succinate 40 MG/1 ML INJ IV SCH ×2 (09:02→23:06)
[2020-12-11] MEDS: FAMOTIDINE 20 MG/2 ML INJ IV SCH ×2 (09:02→23:06)
[2020-12-11] MEDS: SENNOSIDES/DOCUSATE SODIUM 8.6/50 MG TAB PO SCH ×2 (09:03→23:06)
--- NOTE | 2020-12-11 11:05 | Event Note ---
Date: 12/11/20 Cardiology consulted for "abnormal ECG". ECG shows NSR, no acute ischemic changes. D/w primary team. Cardiology consult cancelled. Jess CROWDER NP / DR. MEEKS
--- NOTE | 2020-12-11 11:07 | Progress Note ---
Assessment and Plan Assessment and plan: COVID-19 test positive; 11/16/2020 --Acute hypoxic hypercapnic respiratory failure ; requiring intubation and mechanical ventilation Continue ventilatory support, pulmonary critical following Wean as tolerated and extubate, nebulizers IV steroids ID and pulmonary critical following Home oxygen evaluation when patient is stable --Bilateral pneumothorax; status post bilateral chest tube placement Mild improvement, chest tubes in place ,continue supportive care, surgery pulmonary following --Pneumomediastinum, subcutaneous emphysema, Continue supportive care, surgery following --Leukocytosis --Bilateral Covid pneumonia Management per protocols ID pulmonary following --Type II Diabetes Mellitus Accu-Chek sliding scale coverage ADA diet Long-acting insulin as needed --Sepsis secondary to MRSA pneumonia Continue vancomycin Follow cultures 12/05: Patient continues on full ventilatory support per neurology technologist PEEP remains at 18. Still with hypercapnic respiratory failure. FiO2 down to 60% this morning. Chest tube to suction still weaning off steroids in the deliberation ongoing for possible a third chest tube as last documentation by surgery shows no plan for it at this time. Continue to manage insulin for better blood sugar control. 12/06:weaned down to 60%, continue supportive care, unable to wean, 12/07; patient remains intubated on ventilatory support, chest tubes in place trach and PEG when patient's Covid test is negative,Per surgery. 12/08; Patient remains intubated remains with hypercapnia and hypoxia. Chest tube still remain in place. He is off antibiotics at this time. Continue steroids which is likely resultant to the leukocytosis. Betting Agency Counter Clerk and surgeon following ID input is noted. Prognosis remains guarded to poor 12/10; patient remains intubated on vent, unable to wean awaiting trach and PEG when Covid test is negative, Continue current management 12/11; patient awaiting trach and PEG when Covid test is negative, vent dependent, poor prognosis Patient is critically ill with very poor prognosis, awaiting trach and PEG when COVID-19 test turns negative Plan discussed with nursing staff. Betting Agency Counter Clerk have discussed with the patient's brother. No new updates at this time. The high probability of a clinically significant, sudden or life threatening deterioration of the [pulmonary] system(s) required my full and direct attention, int ervention and personal management. The aggregate critical care time was [32] minutes. This time is in addition to time spent performing reported procedures but includes the following: [X] Data Review and interpretation [X] Patient assessment and monitoring of vital signs [X] Documentation [X] Medication orders and management Plan of care reviewed with the patient's nurse and the case management History Interval history: I have seen and examined the patient at the bedside in ICU Covid positive patient strict isolation precautions protocols and COVID-19 guidelines followed Patient's chart and medications reviewed Patient remains intubated on ventilatory support Vent dependent awaiting trach and PEG when Covid test is negative per surgery Hospitalist Physical - Constitutional Vitals: Temp Pulse Resp BP Pulse Ox 98.6 F 82 22 150/84 94 12/11/20 08:00 12/11/20 10:00 12/11/20 10:00 12/11/20 10:00 12/11/20 10:00 General appearance: Present: mild distress, well-nourished, obese - EENT Eyes: Present: PERRL - Neck Neck: Present: supple, normal ROM - Respiratory Respiratory effort: normal Respiratory: bilateral: diminished, negative: rales, rhonchi, wheezing - Cardiovascular Rhythm: regular Heart Sounds: Present: S1 & S2 - Extremities Extremities: no ischemia, No edema - Abdominal General gastrointestinal: soft, non-tender, non-distended, normal bowel sounds - Integumentary Integumentary: Present: clear, warm - Psychiatric Psychiatric: other (Intubated on vent) - Neurologic Neurologic: other (Intubated on vent) HEART Score - HEART Score Troponin: Troponin T < 0.010 ng/mL (0.00-0.029) 12/11/20 06:30 Results - Labs CBC & Chem 7: 12/09/20 06:40 12/09/20 06:40 Labs: Laboratory Last Values WBC 13.5 K/mm3 (4.5-11.0) H 12/09/20 06:40 RBC 3.28 M/mm3 (3.65-5.03) L 12/09/20 06:40 Hgb 9.7 gm/dl (11.8-15.2) L 12/09/20 06:40 Hct 29.9 % (35.5-45.6) L 12/09/20 06:40 MCV 91 fl (84-94) 12/09/20 06:40 MCH 30 pg (28-32) 12/09/20 06:40 MCHC 32 % (32-34) 12/09/20 06:40 RDW 14.8 % (13.2-15.2) 12/09/20 06:40 Plt Count 165 K/mm3 (140-440) 12/09/20 06:40 Lymph % (Auto) 2.0 % (13.4-35.0) L 11/27/20 06:25 Bay % (Auto) 5.2 % (0.0-7.3) 11/27/20 06:25 Eos % (Auto) 0.0 % (0.0-4.3) 11/27/20 06:25 Baso % (Auto) 0.1 % (0.0-1.8) 11/27/20 06:25 Lymph # (Auto) 0.3 K/mm3 (1.2-5.4) L 11/27/20 06:25 Bay # (Auto) 0.7 K/mm3 (0.0-0.8) 11/27/20 06:25 Eos # (Auto) 0.0 K/mm3 (0.0-0.4) 11/27/20 06:25 Baso # (Auto) 0.0 K/mm3 (0.0-0.1) 11/27/20 06:25 Add Manual Diff Complete 12/08/20 06:10 Total Counted 100 12/08/20 06:10 Seg Neutrophils % Copywriting Intern 12/08/20 06:10 Seg Neuts % (Manual) 95.0 % (40.0-70.0) H 12/08/20 06:10 Band Neutrophils % 2.0 % 12/02/20 02:14 Lymphocytes % (Manual) 3.0 % (13.4-35.0) L 12/08/20 06:10 Monocytes % (Manual) 2.0 % (0.0-7.3) 12/08/20 06:10 Nucleated RBC % Not Reportable 12/08/20 06:10 Seg Neutrophils # 12.7 K/mm3 (1.8-7.7) H 11/27/20 06:25 Seg Neutrophils # Man 11.4 K/mm3 (1.8-7.7) H 12/08/20 06:10 Band Neutrophils # 0.0 K/mm3 12/08/20 06:10 Lymphocytes # (Manual) 0.4 K/mm3 (1.2-5.4) L 12/08/20 06:10 Abs React Lymphs (Man) 0.0 K/mm3 12/08/20 06:10 Monocytes # (Manual) 0.2 K/mm3 (0.0-0.8) 12/08/20 06:10 Eosinophils # (Manual) 0.0 K/mm3 (0.0-0.4) 12/08/20 06:10 Basophils # (Manual) 0.0 K/mm3 (0.0-0.1) 12/08/20 06:10 Metamyelocytes # 0.0 K/mm3 12/08/20 06:10 Myelocytes # 0.0 K/mm3 12/08/20 06:10 Promyelocytes # 0.0 K/mm3 12/08/20 06:10 Blast Cells # 0.0 K/mm3 12/08/20 06:10 WBC Morphology Not Reportable 12/08/20 06:10 Hypersegmented Neuts Not Reportable 12/08/20 06:10 Hyposegmented Neuts Not Reportable 12/08/20 06:10 Hypogranular Neuts Not Reportable 12/08/20 06:10 Smudge Cells Not Reportable 12/08/20 06:10 Toxic Granulation Not Reportable 12/08/20 06:10 Toxic Vacuolation Not Reportable 12/08/20 06:10 Dohle Bodies Not Reportable 12/08/20 06:10 Pelger-Huet Anomaly Not Reportable 12/08/20 06:10 Tony Rods Not Reportable 12/08/20 06:10 Platelet Estimate Consistent w auto 12/08/20 06:10 Clumped Platelets Not Reportable 12/08/20 06:10 Plt Clumps, EDTA Not Reportable 12/08/20 06:10 Large Platelets Not Reportable 12/08/20 06:10 Giant Platelets Not Reportable 12/08/20 06:10 Platelet Satelliting Not Reportable 12/08/20 06:10 Plt Morphology Comment Not Reportable 12/08/20 06:10 RBC Morphology Not Reportable 12/08/20 06:10 Dimorphic RBCs Not Reportable 12/08/20 06:10 Polychromasia Not Reportable 12/08/20 06:10 Hypochromasia 1+ 12/08/20 06:10 Poikilocytosis Not Reportable 12/08/20 06:10 Anisocytosis Not Reportable 12/08/20 06:10 Microcytosis Not Reportable 12/08/20 06:10 Macrocytosis Not Reportable 12/08/20 06:10 Spherocytes Not Reportable 12/08/20 06:10 Pappenheimer Bodies Not Reportable 12/08/20 06:10 Sickle Cells Not Reportable 12/08/20 06:10 Target Cells Not Reportable 12/08/20 06:10 Tear Drop Cells Not Reportable 12/08/20 06:10 Ovalocytes Not Reportable 12/08/20 06:10 Stomatocytes 1+ 12/03/20 04:35 Helmet Cells Not Reportable 12/08/20 06:10 Cabrera-Harrington Bodies Not Reportable 12/08/20 06:10 [place] Rings Not Reportable 12/08/20 06:10 Henrry Cells Not Reportable 12/08/20 06:10 Bite Cells Not Reportable 12/08/20 06:10 Crenated Cell Not Reportable 12/08/20 06:10 Elliptocytes Not Reportable 12/08/20 06:10 Acanthocytes (Spur) Not Reportable 12/08/20 06:10 Rouleaux Not Reportable 12/08/20 06:10 Hemoglobin C Crystals Not Reportable 12/08/20 06:10 Schistocytes Not Reportable 12/08/20 06:10 Malaria parasites Not Reportable 12/08/20 06:10 Yovani Bodies Not Reportable 12/08/20 06:10 Hem Pathologist Commnt No 12/08/20 06:10 D-Dimer 926.11 ng/mlDDU (0-234) H 11/26/20 06:04 ABG pH 7.420 (7.320-7.450) 12/11/20 04:06 POC ABG pCO2 71.0 mmHg (32.0-48.0) H 12/11/20 04:06 ABG pCO2 81.3 mm Hg 12/08/20 04:12 POC ABG pO2 56.8 mmHg (83-108) L 12/11/20 04:06 ABG pO2 69.7 mm Hg (80.0-90.0) L 12/08/20 04:12 POC ABG HCO3 45 12/11/20 04:06 ABG HCO3 50.1 mmol/L (20.0-26.0) H 12/08/20 04:12 ABG O2 Saturation 95.4 % (95.0-99.0) 12/08/20 04:12 ABG O2 Content 13.0 (0.0-44) 12/07/20 05:20 POC ABG Base Excess 17.7 12/11/20 04:06 ABG Base Excess 21.6 mmol/L (-2.0-3.0) H 12/08/20 04:12 ABG Hemoglobin 10.1 (12.0-17.5) L 12/11/20 04:06 ABG Oxyhemoglobin 88.5 (94-98) L 12/11/20 04:06 ABG Carboxyhemoglobin 2.0 % (0.0-5.0) 12/08/20 04:12 ABG Methemoglobin 0.3 (0.0-1.5) 12/11/20 04:06 ABG Sodium 132.3 mmol/L (136.0-145.0) L 12/11/20 04:06 ABG Potassium 4.2 mmol/L (3.40-4.50) 12/11/20 04:06 ABG Chloride 91.0 mmol/L (98-107) L 12/11/20 04:06 ABG Glucose 168 mg/dL (65-95) H 12/11/20 04:06 Oxyhemoglobin 93.2 % (95.0-99.0) L 12/08/20 04:12 Carboxyhemoglobin 1.1 (0.5-1.5) 12/11/20 04:06 FiO2 85 12/11/20 04:06 Sodium 135 mmol/L (137-145) L 12/09/20 06:40 Potassium 4.3 mmol/L (3.6-5.0) 12/09/20 06:40 Chloride 89.5 mmol/L (98-107) L 12/09/20 06:40 Carbon Dioxide 52 mmol/L (22-30) H* 12/09/20 06:40 Anion Gap -2 mmol/L 12/09/20 06:40 BUN 14 mg/dL (9-20) 12/09/20 06:40 Creatinine 0.3 mg/dL (0.8-1.3) L 12/09/20 06:40 Estimated GFR > 60 ml/min 12/09/20 06:40 BUN/Creatinine Ratio 47 % 12/09/20 06:40 Glucose 114 mg/dL (75-100) H 12/09/20 06:40 POC Glucose 149 mg/dL (70-105) H 12/11/20 05:21 Hemoglobin A1c 11.7 % (4-6) H 11/16/20 05:29 Lactic Acid 2.60 mmol/L (0.7-2.0) H* 11/16/20 05:29 Calcium 7.6 mg/dL (8.4-10.2) L 12/09/20 06:40 Phosphorus 2.90 mg/dL (2.5-4.5) 12/04/20 Unknown Magnesium 1.90 mg/dL (1.7-2.3) 12/04/20 Unknown Ferritin 778.8 ng/mL (30.0-300.0) H 11/26/20 04:00 Total Bilirubin 0.30 mg/dL (0.1-1.2) 12/06/20 04:31 AST 48 units/L (5-40) H 12/06/20 04:31 ALT 91 units/L (7-56) H 12/06/20 04:31 Alkaline Phosphatase 140 units/L (35-129) H 12/06/20 04:31 Lactate Dehydrogenase 288 units/L (91-180) H 11/26/20 04:00 Troponin T < 0.010 ng/mL (0.00-0.029) 12/11/20 06:30 C-Reactive Protein 1.40 mg/dL (0.00-1.30) H 11/26/20 04:00 NT-Pro-B Natriuret Pep 107.2 pg/mL (0-900) 11/17/20 10:21 Total Protein 5.7 g/dL (6.3-8.2) L 12/06/20 04:31 Albumin 2.6 g/dL (3.9-5) L 12/06/20 04:31 Albumin/Globulin Ratio 0.8 % 12/06/20 04:31 Triglycerides 109 mg/dL (2-149) 12/08/20 06:10 Procalcitonin 0.51 ng/mL (<0.15) 11/15/20 10:39 Arterial Blood Glucose 168 mg/dL (65-95) H 12/11/20 04:06 Arterial Blood Ionized Calcium 4.1 mg/dL (4.6-5.3) L 12/11/20 04:06 Urine Color Faustina (Yellow) 11/16/20 01:45 Urine Turbidity Slightly-cloudy (Clear) 11/16/20 01:45 Urine pH 6.0 (5.0-7.0) 11/16/20 01:45 Ur Specific [place] 1.037 (1.003-1.030) H 11/16/20 01:45 Urine Protein 30 mg/dl mg/dL (Negative) 11/16/20 01:45 Urine Glucose (UA) >=500 mg/dL (Negative) 11/16/20 01:45 Urine Ketones 20 mg/dL (Negative) 11/16/20 01:45 Urine Blood Neg (Negative) 11/16/20 01:45 Urine Nitrite Neg (Negative) 11/16/20 01:45 Urine Bilirubin Neg (Negative) 11/16/20 01:45 Urine Urobilinogen 2.0 mg/dL (<2.0) 11/16/20 01:45 Ur Leukocyte Esterase Neg (Negative) 11/16/20 01:45 Urine WBC (Auto) 2.0 /HPF (0.0-6.0) 11/16/20 01:45 Urine RBC (Auto) 1.0 /HPF (0.0-6.0) 11/16/20 01:45 Urine Bacteria (Auto) 1+ /HPF (Negative) 11/16/20 01:45 Urine Mucus 3+ /HPF 11/16/20 01:45 Vancomycin Trough 4.0 ug/mL (5.0-20.0) L 11/29/20 15:40 Coronavirus (PCR) Positive (Negative) A 11/16/20 Unknown Microbiology: Microbiology 12/09/20 11:37 Peripheral/Venous Blood Culture - Preliminary NO GROWTH AFTER 24 HOURS 12/09/20 11:37 Peripheral/Venous Blood Culture - Preliminary NO GROWTH AFTER 24 HOURS - Diagnostic Impressions Diagnostic Impressions: Echocardiogram 11/16/20 10:34 Transthoracic Echocardiogram Indication: Shortness of breath-COVID BP: 108/77 HR: 92 Conclusions *Global left ventricular systolic function is normal. *The estimated ejection fraction is 60-65%. *Mild to moderate concentric left ventricular hypertrophy is observed. *There is trace of mitral regurgitation. *There is mild to moderate tricuspid regurgitation. *There is evidence of mild pulmonary hypertension. *The right ventricular systolic pressure is calculated at 31 mmHg. Findings Left Ventricle: The left ventricular chamber size is normal. Mild to moderate concentric left ventricular hypertrophy is observed. Global left ventricular systolic function is normal. The estimated ejection fraction is 60-65%. Left Atrium: The left atrial chamber size is normal. Right Ventricle: The right ventricular cavity size is normal. The right ventricular global systolic function is normal. Right Atrium: The right atrial cavity size is normal. Aortic Valve: The aortic valve is trileaflet. There is no evidence of aortic regurgitation. There is no evidence of aortic stenosis. Mitral Valve: The mitral valve leaflets appear normal. There is trace of mitral regurgitation. There is no evidence of mitral stenosis. Tricuspid Valve: The tricuspid valve leaflets are normal. There is mild to moderate tricuspid regurgitation. The right ventricular systolic pressure is calculated at 31 mmHg. There is evidence of mild pulmonary hypertension. Pulmonic Valve: There is trace pulmonic regurgitation. Pericardium: There is no pericardial effusion. Aorta: There is no dilatation of the ascending aorta. There is no dilatation of the aortic root. Venous: The inferior vena cava appears normal in size. Measurements Chambers 2D Name Value Normal Range IVSd (2D) 0.81 cm (0.6 - 1.1) LVPWd (2D) 0.79 cm (0.6 - 1.1) LVIDd (2D) 4.22 cm (3.7 - 5.6) LVIDs (2D) 3.1 cm (2 - 3.8) LV FS (2D) 26.71 % - EF Teichholz (2D) 52.55 % - Ao root diameter (2D) 3.34 cm (2 - 3.7) Volumes/Mass Name Value Normal Range LA ESV SP 4CH (A/L) 10.87 ml - LA ESV SP 2CH (A/L) 18.74 ml - LA ESV BP (A/L) 16.38 ml - LA ESV BP (A/L) index 8.62 ml/m2 - LA ESV SP 4CH (MOD) 10.32 ml - LA ESV SP 2CH (MOD) 17.66 ml - LA ESV BP (MOD) 15.12 ml - LA ESV BP (MOD) index 7.96 ml/m2 - Diastolic/Systolic Function Name Value Normal Range MV E-wave Vmax 0.76 m/sec - MV deceleration time 133.63 msec - MV A-wave Vmax 1.1 m/sec - MV E:A ratio 0.69 ratio - Aortic Valve Name Value Normal Range AV Vmax 1.44 m/sec - AV VTI 22.94 cm - AV peak gradient 8.33 mmHg - AV mean gradient 4.73 mmHg - LVOT diameter 2.2 cm - LVOT Vmax 1.04 m/sec - LVOT VTI 18.88 cm - LVOT peak gradient 4.34 mmHg - LVOT mean gradient 2.31 mmHg - SV LVOT 72.05 ml - EVANGELISTA (continuity Vmax) 2.75 cm2 - EVANGELISTA (continuity VTI) 3.14 cm2 - Tricuspid Valve Name Value Normal Range TR Vmax 2.64 m/sec - TR peak gradient 28 mmHg - RAP 3 mmHg - RVSP 31 mmHg - Gupta/IV: Voiding Method Indwelling Catheter IV Catheter Type [Left Peripheral IV Antecubital] Active Medications - Current Medications Current Medications: Generic Name Dose Route Start Last Admin Trade Name Freq PRN Reason Stop Dose Admin Acetaminophen 650 mg 11/15/20 23:55 12/09/20 00:14 Acetaminophen 325 Mg Tab PO 650 mg Q4H PRN Administration Pain MILD(1-3)/Fever >100.5/BUTTS Lipase/Protease/Amylase 1 each 11/23/20 11:53 12/05/20 23:45 Lipase 10,500/Protease 25,000/Amylase 43,750 (Units) Dr Slater FEEDTUBE 1 each PRN PRN Administration For Clogged Feeding Tube Dextrose 25 ml 12/10/20 05:21 12/10/20 05:24 Dextrose 50% In Water (25gm) 50 Ml Syringe IV 25 ml Q30MIN PRN Administration Hypoglycemia Protocol Enoxaparin Sodium 40 mg 12/03/20 22:00 12/10/20 21:08 Enoxaparin 40 Mg/0.4 Ml Inj SUB-Q 40 mg QDAY@2200 RAEANN Administration Famotidine 20 mg 11/22/20 22:00 12/11/20 09:02 Famotidine 20 Mg/2 Ml Inj IV 20 mg BID RAEANN Administration Fentanyl 50 mcg 11/21/20 21:53 12/10/20 04:18 Fentanyl 100 Mcg/2 Ml Inj IV 50 mcg Q10MIN PRN Administration ANALGESIA Hydrophilic Ointment 1 applic 11/21/20 21:53 11/30/20 21:33 Lip Therapy Vaseline TP 1 applic Q2HR PRN Administration Dry Lips Fentanyl Citrate 2,000 mcg in 100 mls @ 3.625 mls/hr 11/21/20 22:00 12/11/20 03:26 Fentanyl Drip Premix IV 4 mcg/kg/hr TITR RAEANN 14.5 mls/hr Administration Protocol 1 MCG/KG/HR Midazolam HCl 100 mg/ Sodium 100 mls @ 2 mls/hr 11/21/20 22:00 12/10/20 23:50 Chloride IV 5 mg/hr TITR RAEANN 5 mls/hr Administration Protocol 2 MG/HR Norepinephrine 4 mg in 250 mls @ 7.5 mls/hr 11/22/20 17:00 12/11/20 09:35 Levophed Drip 4 Mg/Ns 250 Ml IV 0 mcg/min TITR RAEANN 0 mls/hr Titration Protocol 2 MCG/MIN Propofol 1,000 mg in 100 mls @ 2.175 mls/hr 11/27/20 12:00 12/11/20 10:39 Diprivan 10 Mg/Ml IV 15 mcg/kg/min TITR RAEANN 6.525 mls/hr Titration Protocol 5 MCG/KG/MIN Dexmedetomidine HCl 400 mcg/ 104 mls @ 4.441 mls/hr 12/10/20 13:00 12/11/20 05:50 Sodium Chloride IV 0.1 mcg/kg/hr TITRATE RAEANN 2.22 mls/hr Titration Protocol 0.2 MCG/KG/HR Insulin Human Lispro 0 unit 11/22/20 06:00 12/11/20 05:28 Insulin Lispro 100 Unit/Ml SUB-Q Not Given Q6HR [facility] Protocol Methylprednisolone Sodium Succinate 20 mg 12/08/20 22:00 12/11/20 09:02 Methylprednisolone Sod Succinate 40 Mg/1 Ml Inj IV 20 mg Q12HR RAEANN Administration Metoclopramide HCl 10 mg 11/15/20 23:55 Metoclopramide 10 Mg/2 Ml Inj IV Q6H PRN Nausea And Vomiting Midazolam HCl 2 mg 11/21/20 21:53 12/03/20 20:13 Midazolam 2 Mg/2 Ml Inj IV 2 mg Q10MIN PRN Administration Sedation Multi-Ingred Cream/Lotion/Oil/Oint 1 applic 11/21/20 21:53 Mineral Oil/Petrolatum, White Ophth Oint 3.5 Gm OU Q4HR PRN Dry Eye(s) Ondansetron HCl 4 mg 11/15/20 23:55 Ondansetron 4 Mg/2 Ml Inj IV Q8H PRN Nausea And Vomiting Senna/Docusate Sodium 2 tab 12/03/20 13:00 12/11/20 09:03 Sennosides/Docusate Sodium 8.6/50 Mg Tab PO Not Given BID RAEANN Simple Syrup 15 ml 11/23/20 11:53 Simple Syrup 15 Ml FEEDTUBE PRN PRN Hypoglycemia Simple Syrup 30 ml 11/23/20 11:53 Simple Syrup 15 Ml FEEDTUBE PRN PRN Hypoglycemia Sodium Bicarbonate 325 mg 11/23/20 11:53 12/05/20 23:46 Sodium Bicarbonate 325 Mg Tab FEEDTUBE 325 mg PRN PRN Administration For Clogged Feeding Tube Sodium Chloride 10 ml 11/16/20 10:00 12/11/20 09:02 Sodium Chloride 0.9% 10 Ml Flush Syringe IV 10 ml BID RAEANN Administration Sodium Chloride 10 ml 11/15/20 23:55 12/03/20 00:21 Sodium Chloride 0.9% 10 Ml Flush Syringe IV 10 ml PRN PRN Administration LINE FLUSH Nutrition/Malnutrition Assess - Dietary Evaluation Nutrition/Malnutrition Findings: Nutrition Notes Start: 11/20/20 12:03 Freq: Status: Active Protocol: Document 12/09/20 11:11 AL (Rec: 12/09/20 11:25 AL [id number]) Co-Sign 12/09/20 11:11 LP Nutrition Notes Initial or Follow up Reassessment Current Diagnosis Diabetes,Sepsis,Respiratory Failure Other Pertinent Diagnosis Bilat pneu, COVID-19 (+) Current Diet Glucerna 1.2 at 60 ml/hr Labs/Tests Na 134 Cr .3 Pertinent Medications Propofol at 13.05 ml/hr (344 kcal) Solumedrol Senokot S Height 5 ft 6 in Weight 85.4 kg Usual Body Weight 80.5 kg [place] Body Weight (kg) 64.54 BMI 30.4 Weight Status Overweight Subjective/Other Information F/U for TF tolerance. Pt tolerating TF at 60 ml/hr ( goal rate) Percent of energy/protein needs met: 100%/100% Burn Absent Trauma Absent GI Symptoms Last BM Difficulty In Swallowing,Chewing Food Allergy No Current % PO Negligible Minimum of two criteria Yes Energy Intake (severe) < or equal to 50% Estimated Energy Requirement > or equal to 5 days Interpretation of Weight Loss (severe) >2% in 1 week Fluid Accumulation Moderate to Severe (severe) #3 Nutrition Diagnosis Inadequate oral intake Diagnosis Progress(for reassessment Continues documentation) #2 Nutrition Diagnosis Malnutrition Diagnosis Progress(for reassessment Continues documentation) #1 Nutrition Diagnosis Unintended weight loss Diagnosis Progress(for reassessment Continues documentation) Is patient on ventilator? Yes Is Patient Ambulatory and/or Out of Bed No REE-([place] [place]-confined to bed) 1944.648 Kcal/Kg value to use for calculation 21 Approximate Energy Requirements Using 1793 kcal/Kg Calculation Used for Recommendations Kcal/kg Additional Notes Protein: 87-145 g/day (1.2-2g/ kg) Fluid: 1ml/kcal or per MD Nutrition Intervention Change Diet Order: Continue TF Nutrition Support: Glucerna 1.2 at 60 ml/hr. Flush 100 ml q4h Kcal 1,728 Protein (gm) 86 Fluid (mL) 1,159 Goal #1 TF tolerance Goal #2 Meet at least 75% of energy and protein needs via TF Anticipated Discharge Needs: Unknown at this time Follow-Up By: 12/16/20 Additional Comments FU for TF tolerance
--- NOTE | 2020-12-11 14:03 | Progress Note ---
Assessment and Plan 59 y/o male with acute respiratory failure, abnormal CXR and abnormal lab studies. 12/11/20: Will attempt to wean Diprovan off and increase precedex. Triglycerides were ok. IF we have to support with pressors we will but I have asked nursing to please be detailed in their checkouts as to why they did certain things with the continuous drips. Continue supportive measures. Brother is going to try to come and see him from [place] 12/10/20: No acute events overnight. Patient has had waxing and waning of the amount of oxygen he has required over the last 24-72 hours. I have a bad feeling that he is on the brink of cardiac arrest and this could happen at any moment. I am going to reach out to the brother today to explain to him my concerns. Patient is a full code. Very very guarded prognosis. 12/09/20: Repeat ABG later today. Wean FiO2 for sats >88%. Repeat CXR as well. With BP dropping could be relative adrenal insufficiency, will watch for now, however if pressor requirement increases would consider stress dose steroids and maybe volume replacement. Follow up cultures. Guarded prognosis. 12/08/20: Increase TV to 425. Drop FiO2 to 65% and wean for sats >88%. COntinue chest tubes. Change steroids to 20q12. 12/07/20: CXR is stable, no indication for another chest tube at this time. Will repeat ABG in 1 hour post change to 70% and wean accordingly. Dropping steroids to 20q8. Guarded prognosis. Same weaning parameters apply today as of 12/04/20 12/04/20: Continue to wean steroids to off. Continue to wean FiO2 for sats >88%. Keep PEEP at current level, would not feel comfortable weaning PEEP until FiO2 at 35-40%. Continue chest tubes to suction. PaO2 of >55, pH of >7.2 and sats >88% are acceptable. : Dropped steroids down to 40q8 and will start to wean from there. Continue to slowly wean FiO2 first, keep PEEP at current level. Spoke with Kehinde, please see my event note, who is the biological brother. He had no questions but thanked us for our care. Prognosis remains very very guarded. PaO2 of 55 and pH of >7.2 and sats of >88% are all acceptable. 12/02/20: Wean FiO2 for sats >88% and PaO2 >55. Unable to prone currently secondary to bilateral chest tubes. COntinue high dose steroids. CM To figure out who is the immediate next of kin that can make decisions and then we will discuss the current clinical situation with them. 12/01/20: Continue PEEP and FiO2 elevated to keep sats >88% and PaO2 >55. Small lung volumes and high PEEP. very very guarded prognosis. 11/30/20: Worsening hypoxemia. Chest tubes stable. Likely just worsening disease. Unable to prone now. Increase PEEP to 18 and FiO2 back up to 100. Continue 3 sedatives for RASS of -2. Obtain 12 lead to look at T waves as K was only 4.6 on yesterday. Guarded, guarded prognosis 11/29/20: Second chest tube in on yesterday. CXR is stable. ABG unchanged. Will likely increase PEEP now that chest tubes are in. No further paralytics. Still making good urine. Prognosis remains guarded. Will check chemistry to assess Potassium levels given peaked t's seen on monitor. 11/28/20: Second chest tube today. Once chest tube in, will likely increase PEEP to 18 and repeat gas about 2 hours after this. Continue paralytic today. No proning now that patient will have bilateral chest tubes. VEry guarded prognosis. 11/27/20: Spoke with surgery who have agreed to evaluate and placed chest tube on either right or left side pending CXR reading. Will monitor for 36-48 hours and if no resolution, will need chest tube placed on opposite side as well. Once placed, will likely paralyze again but hold on proning for now. Guarded prognosis. 11/26/20: Paralytics are off. Continue current level of sedation. Will prone for 12 hours today and repeat ABG in the am. Continue lung protective strategy. Guarded prognosis. 11/25/20: Prone again to 16 hours, will prone at 12-12:30. Continue paralytics for 24 more hours. Discussed the idea of permissive hypercapnea again today and as long as pH is above 7.2 no changes should be made to TV and or RR without discussing with physician. Continue to monitor urine output, guarded prognosis. Hold on lasix therapy today. 11/24/20: Prone again today. Will try 48 hours of paralyzing the patient to see if this will help with oxygenation. Will speak with RT's about permissive hypercapnea and that pH's of 7.2 and greater are ok. Continue high doses steroids. Prognosis is still very very guarded. If not improvement with paralytics, will attempt transfer. 11/23/20: Prone again today for 12 hours. Continue High Dose steroids. Hold on lasix given marginal BP's. Prognosis is very very guarded to poor. Will continue all supportive measures. If not able to wean from 100%, will attempt transfer for ECMO. 11/20/20: WIll change to solumedrol 60q6 today. Hold on lasix today. Given his increasing oxygen requirement, will likely end up intubated. OVerall prognosis is very poor. 11/19/20: lasix 40mg IV x1 today. Will speak with ID but may consider increasing steroids to see if this will help with oxygenation. Continue Remdesivir. Prognosis remains guarded. 11/18/20: Continue bipap, goal is to attempt to prevent prolong intubation for as long as possible. Lasix again today. Steroids and Remdesivir. Guarded Prognosis. 11/17/20: Continue bipap therapy. Monitor mental state. High risk for Intubation. Continue BID anticoagulation. Prone if able. BNP was elevated but not grossly elevated. Will still give lasix with hopes of achieving net negative state. STeroids and remdesivir. Overall prognosis is guarded, extremely guarded. 1. Pulm- Agree with concern for covid. Agree with empiric abx but procal is only mildly elevated. Await cultures. Continue bipap therapy for now but will need to monitor closely. [facility] has ordered CTA, but I spoke with pharmacy and we will empirically treat with BID lovenox therapy. COntinue empiric steroid therapy for COVID until studies back. Not sure that he will be able to prone on bipap therapy. Monitor volume status and run as dry as possible. 2. Renal-normal function but all electrolytes abnormal. HYponatremia and Hypochloremia volume up vs volume down. Sent BNP. Would suggest obtaning echo as well. Not sure what to make of elevated lactate unless that is from increased work of breathing or damage to other tissue unknown. May need to check LFT's and Coags as well. 3. Guarded Prognosis. CCT 31 minutes. Subjective Date of service: 12/11/20 Principal diagnosis: COVID-19 Interval history: No acute events. Still having issues with sedation and HR and BP. No clear picture of events over the last 24 hours. Objective Vital Signs - 12hr 12/11/20 12/11/20 12/11/20 02:00 02:30 03:00 Temperature Pulse Rate 89 86 88 Pulse Rate [ From Monitor] Respiratory 30 H 18 22 Rate Blood Pressure 95/50 109/58 113/67 O2 Sat by Pulse 97 97 96 Oximetry 12/11/20 12/11/20 12/11/20 03:19 03:30 03:48 Temperature 99.8 F H Pulse Rate 84 85 Pulse Rate [ From Monitor] Respiratory 30 H Rate Blood Pressure 115/61 106/56 O2 Sat by Pulse 96 96 Oximetry 12/11/20 12/11/20 12/11/20 04:00 04:30 05:00 Temperature Pulse Rate 83 80 75 Pulse Rate [ 87 From Monitor] Respiratory 30 H 30 H 30 H Rate Blood Pressure 104/57 97/52 93/50 O2 Sat by Pulse 96 97 97 Oximetry 12/11/20 12/11/20 12/11/20 05:30 06:00 06:30 Temperature Pulse Rate 66 61 43 L Pulse Rate [ From Monitor] Respiratory 30 H 30 H 19 Rate Blood Pressure 96/55 94/53 94/64 O2 Sat by Pulse 99 98 99 Oximetry 12/11/20 12/11/20 12/11/20 07:00 07:30 08:00 Temperature 98.6 F Pulse Rate 60 63 63 Pulse Rate [ 62 From Monitor] Respiratory 30 H 30 H 30 H Rate Blood Pressure 102/57 103/59 111/64 O2 Sat by Pulse 98 98 96 Oximetry 12/11/20 12/11/20 12/11/20 08:30 08:46 09:00 Temperature Pulse Rate 69 80 83 Pulse Rate [ From Monitor] Respiratory 30 H 26 H Rate Blood Pressure 131/74 140/81 144/77 O2 Sat by Pulse 97 98 96 Oximetry 12/11/20 12/11/20 12/11/20 09:30 10:00 10:30 Temperature Pulse Rate 90 82 97 H Pulse Rate [ From Monitor] Respiratory 24 22 31 H Rate Blood Pressure 144/82 150/84 170/88 O2 Sat by Pulse 95 94 92 Oximetry 12/11/20 12/11/20 12/11/20 11:00 11:30 12:00 Temperature 98.4 F Pulse Rate 103 H 96 H Pulse Rate [ From Monitor] Respiratory 27 H 28 H Rate Blood Pressure 147/86 144/80 O2 Sat by Pulse 94 92 Oximetry Constitutional: other (on vent orally intubated) ENT: other (Now intubated) Ascultation: Bilateral: rales, rhonchi Percussion: Bilateral: not dull Cardiovascular: regular rate and rhythm Gastrointestinal: soft, non-tender Neurologic: other (on vent) CBC and BMP: 12/09/20 06:40 12/09/20 06:40 ABG, PT/INR, D-dimer: ABG ABG pH 7.420 (7.320-7.450) 12/11/20 04:06 POC ABG pCO2 71.0 mmHg (32.0-48.0) H 12/11/20 04:06 ABG pCO2 81.3 mm Hg 12/08/20 04:12 POC ABG pO2 56.8 mmHg (83-108) L 12/11/20 04:06 ABG pO2 69.7 mm Hg (80.0-90.0) L 12/08/20 04:12 POC ABG HCO3 45 12/11/20 04:06 ABG O2 Saturation 95.4 % (95.0-99.0) 12/08/20 04:12 PT/INR, D-dimer D-Dimer 926.11 ng/mlDDU (0-234) H 11/26/20 06:04 Abnormal lab findings: Abnormal Labs 11/15/20 11/15/20 11/15/20 10:39 10:39 10:39 WBC 14.3 H RBC 5.17 H Hgb Hct Plt Count Lymph % (Auto) 7.8 L Leslie % (Auto) 7.6 H Lymph # (Auto) 1.1 L Leslie # (Auto) 1.1 H Baso # (Auto) Seg Neutrophils % 83.3 H Seg Neuts % (Manual) Lymphocytes % (Manual) Seg Neutrophils # 11.9 H Seg Neutrophils # Man Lymphocytes # (Manual) D-Dimer ABG pH POC ABG pCO2 POC ABG pO2 ABG pO2 ABG HCO3 ABG O2 Saturation ABG Base Excess ABG Hemoglobin ABG Oxyhemoglobin ABG Sodium ABG Potassium ABG Chloride ABG Glucose Oxyhemoglobin Carboxyhemoglobin Sodium 128 L Potassium Chloride 96.0 L Carbon Dioxide BUN Creatinine 0.7 L Glucose 238 H POC Glucose Hemoglobin A1c Lactic Acid 4.10 H* Calcium 7.0 L Ferritin Total Bilirubin 1.40 H AST 49 H ALT 70 H Alkaline Phosphatase Lactate Dehydrogenase 663 H C-Reactive Protein 19.80 H Total Protein Albumin 2.9 L Triglycerides Arterial Blood Glucose Arterial Blood Ionized Calcium Ur Specific [place] Vancomycin Trough Coronavirus (PCR) 11/15/20 11/15/20 11/15/20 10:39 10:39 11:20 WBC RBC Hgb Hct Plt Count Lymph % (Auto) Leslie % (Auto) Lymph # (Auto) Leslie # (Auto) Baso # (Auto) Seg Neutrophils % Seg Neuts % (Manual) Lymphocytes % (Manual) Seg Neutrophils # Seg Neutrophils # Man Lymphocytes # (Manual) D-Dimer > 00592 H ABG pH POC ABG pCO2 29.9 L POC ABG pO2 137.3 H ABG pO2 ABG HCO3 ABG O2 Saturation ABG Base Excess ABG Hemoglobin ABG Oxyhemoglobin ABG Sodium 126.5 L ABG Potassium ABG Chloride ABG Glucose 248 H Oxyhemoglobin Carboxyhemoglobin Sodium Potassium Chloride Carbon Dioxide BUN Creatinine Glucose POC Glucose Hemoglobin A1c Lactic Acid Calcium Ferritin 672.8 H Total Bilirubin AST ALT Alkaline Phosphatase Lactate Dehydrogenase C-Reactive Protein Total Protein Albumin Triglycerides Arterial Blood Glucose 248 H Arterial Blood Ionized Calcium 4.1 L Ur Specific [place] Vancomycin Trough Coronavirus (PCR) 11/15/20 11/15/20 11/16/20 13:41 23:41 01:45 WBC RBC Hgb Hct Plt Count Lymph % (Auto) Leslie % (Auto) Lymph # (Auto) Leslie # (Auto) Baso # (Auto) Seg Neutrophils % Seg Neuts % (Manual) Lymphocytes % (Manual) Seg Neutrophils # Seg Neutrophils # Man Lymphocytes # (Manual) D-Dimer ABG pH POC ABG pCO2 POC ABG pO2 ABG pO2 ABG HCO3 ABG O2 Saturation ABG Base Excess ABG Hemoglobin ABG Oxyhemoglobin ABG Sodium ABG Potassium ABG Chloride ABG Glucose Oxyhemoglobin Carboxyhemoglobin Sodium Potassium Chloride Carbon Dioxide BUN Creatinine Glucose POC Glucose 284 H Hemoglobin A1c Lactic Acid 2.30 H* Calcium Ferritin Total Bilirubin AST ALT Alkaline Phosphatase Lactate Dehydrogenase C-Reactive Protein Total Protein Albumin Triglycerides Arterial Blood Glucose Arterial Blood Ionized Calcium Ur Specific [place] 1.037 H Vancomycin Trough Coronavirus (PCR) 11/16/20 11/16/20 11/16/20 05:29 05:29 05:29 WBC 12.9 H RBC Hgb Hct Plt Count Lymph % (Auto) 4.5 L Leslie % (Auto) Lymph # (Auto) 0.6 L Leslie # (Auto) Baso # (Auto) 0.2 H Seg Neutrophils % 89.8 H Seg Neuts % (Manual) Lymphocytes % (Manual) Seg Neutrophils # 11.5 H Seg Neutrophils # Man Lymphocytes # (Manual) D-Dimer ABG pH POC ABG pCO2 POC ABG pO2 ABG pO2 ABG HCO3 ABG O2 Saturation ABG Base Excess ABG Hemoglobin ABG Oxyhemoglobin ABG Sodium ABG Potassium ABG Chloride ABG Glucose Oxyhemoglobin Carboxyhemoglobin Sodium 131 L Potassium Chloride Carbon Dioxide 21 L BUN 23 H Creatinine 0.6 L Glucose 342 H POC Glucose Hemoglobin A1c Lactic Acid 2.60 H* Calcium 7.0 L Ferritin Total Bilirubin AST ALT Alkaline Phosphatase Lactate Dehydrogenase C-Reactive Protein Total Protein Albumin 2.4 L Triglycerides Arterial Blood Glucose Arterial Blood Ionized Calcium Ur Specific [place] Vancomycin Trough Coronavirus (PCR) 11/16/20 11/16/20 11/16/20 05:29 08:11 12:11 WBC RBC Hgb Hct Plt Count Lymph % (Auto) Leslie % (Auto) Lymph # (Auto) Leslie # (Auto) Baso # (Auto) Seg Neutrophils % Seg Neuts % (Manual) Lymphocytes % (Manual) Seg Neutrophils # Seg Neutrophils # Man Lymphocytes # (Manual) D-Dimer ABG pH POC ABG pCO2 POC ABG pO2 ABG pO2 ABG HCO3 ABG O2 Saturation ABG Base Excess ABG Hemoglobin ABG Oxyhemoglobin ABG Sodium ABG Potassium ABG Chloride ABG Glucose Oxyhemoglobin Carboxyhemoglobin Sodium Potassium Chloride Carbon Dioxide BUN Creatinine Glucose POC Glucose 329 H 320 H Hemoglobin A1c 11.7 H Lactic Acid Calcium Ferritin Total Bilirubin AST ALT Alkaline Phosphatase Lactate Dehydrogenase C-Reactive Protein Total Protein Albumin Triglycerides Arterial Blood Glucose Arterial Blood Ionized Calcium Ur Specific [place] Vancomycin Trough Coronavirus (PCR) 11/16/20 11/16/20 11/16/20 16:13 21:29 Unknown WBC RBC Hgb Hct Plt Count Lymph % (Auto) Leslie % (Auto) Lymph # (Auto) Leslie # (Auto) Baso # (Auto) Seg Neutrophils % Seg Neuts % (Manual) Lymphocytes % (Manual) Seg Neutrophils # Seg Neutrophils # Man Lymphocytes # (Manual) D-Dimer ABG pH POC ABG pCO2 POC ABG pO2 ABG pO2 ABG HCO3 ABG O2 Saturation ABG Base Excess ABG Hemoglobin ABG Oxyhemoglobin ABG Sodium ABG Potassium ABG Chloride ABG Glucose Oxyhemoglobin Carboxyhemoglobin Sodium Potassium Chloride Carbon Dioxide BUN Creatinine Glucose POC Glucose 257 H 376 H Hemoglobin A1c Lactic Acid Calcium Ferritin Total Bilirubin AST ALT Alkaline Phosphatase Lactate Dehydrogenase C-Reactive Protein Total Protein Albumin Triglycerides Arterial Blood Glucose Arterial Blood Ionized Calcium Ur Specific [place] Vancomycin Trough Coronavirus (PCR) Positive A 11/17/20 11/17/20 11/17/20 07:42 12:07 17:25 WBC RBC Hgb Hct Plt Count Lymph % (Auto) Leslie % (Auto) Lymph # (Auto) Leslie # (Auto) Baso # (Auto) Seg Neutrophils % Seg Neuts % (Manual) Lymphocytes % (Manual) Seg Neutrophils # Seg Neutrophils # Man Lymphocytes # (Manual) D-Dimer ABG pH POC ABG pCO2 POC ABG pO2 ABG pO2 ABG HCO3 ABG O2 Saturation ABG Base Excess ABG Hemoglobin ABG Oxyhemoglobin ABG Sodium ABG Potassium ABG Chloride ABG Glucose Oxyhemoglobin Carboxyhemoglobin Sodium Potassium Chloride Carbon Dioxide BUN Creatinine Glucose POC Glucose 231 H 380 H 302 H Hemoglobin A1c Lactic Acid Calcium Ferritin Total Bilirubin AST ALT Alkaline Phosphatase Lactate Dehydrogenase C-Reactive Protein Total Protein Albumin Triglycerides Arterial Blood Glucose Arterial Blood Ionized Calcium Ur Specific [place] Vancomycin Trough Coronavirus (PCR) 11/17/20 11/18/20 11/18/20 21:53 04:25 07:45 WBC RBC Hgb Hct Plt Count Lymph % (Auto) Leslie % (Auto) Lymph # (Auto) Leslie # (Auto) Baso # (Auto) Seg Neutrophils % Seg Neuts % (Manual) Lymphocytes % (Manual) Seg Neutrophils # Seg Neutrophils # Man Lymphocytes # (Manual) D-Dimer ABG pH POC ABG pCO2 POC ABG pO2 ABG pO2 ABG HCO3 ABG O2 Saturation ABG Base Excess ABG Hemoglobin ABG Oxyhemoglobin ABG Sodium ABG Potassium ABG Chloride ABG Glucose Oxyhemoglobin Carboxyhemoglobin Sodium 136 L Potassium Chloride Carbon Dioxide BUN 24 H Creatinine 0.6 L Glucose 212 H POC Glucose 293 H 216 H Hemoglobin A1c Lactic Acid Calcium 7.4 L Ferritin Total Bilirubin AST 41 H ALT Alkaline Phosphatase 142 H Lactate Dehydrogenase C-Reactive Protein Total Protein Albumin 2.3 L Triglycerides Arterial Blood Glucose Arterial Blood Ionized Calcium Ur Specific [place] Vancomycin Trough Coronavirus (PCR) 11/18/20 11/18/20 11/18/20 12:28 15:58 21:37 WBC RBC Hgb Hct Plt Count Lymph % (Auto) Leslie % (Auto) Lymph # (Auto) Leslie # (Auto) Baso # (Auto) Seg Neutrophils % Seg Neuts % (Manual) Lymphocytes % (Manual) Seg Neutrophils # Seg Neutrophils # Man Lymphocytes # (Manual) D-Dimer ABG pH POC ABG pCO2 POC ABG pO2 ABG pO2 ABG HCO3 ABG O2 Saturation ABG Base Excess ABG Hemoglobin ABG Oxyhemoglobin ABG Sodium ABG Potassium ABG Chloride ABG Glucose Oxyhemoglobin Carboxyhemoglobin Sodium Potassium Chloride Carbon Dioxide BUN Creatinine Glucose POC Glucose 165 H 220 H 311 H Hemoglobin A1c Lactic Acid Calcium Ferritin Total Bilirubin AST ALT Alkaline Phosphatase Lactate Dehydrogenase C-Reactive Protein Total Protein Albumin Triglycerides Arterial Blood Glucose Arterial Blood Ionized Calcium Ur Specific [place] Vancomycin Trough Coronavirus (PCR) 11/19/20 11/19/20 11/19/20 05:35 07:40 12:39 WBC RBC Hgb Hct Plt Count Lymph % (Auto) Leslie % (Auto) Lymph # (Auto) Leslie # (Auto) Baso # (Auto) Seg Neutrophils % Seg Neuts % (Manual) Lymphocytes % (Manual) Seg Neutrophils # Seg Neutrophils # Man Lymphocytes # (Manual) D-Dimer ABG pH POC ABG pCO2 POC ABG pO2 ABG pO2 ABG HCO3 ABG O2 Saturation ABG Base Excess ABG Hemoglobin ABG Oxyhemoglobin ABG Sodium ABG Potassium ABG Chloride ABG Glucose Oxyhemoglobin Carboxyhemoglobin Sodium 132 L Potassium Chloride Carbon Dioxide BUN 25 H Creatinine 0.5 L Glucose 179 H POC Glucose 149 H 306 H Hemoglobin A1c Lactic Acid Calcium 7.5 L Ferritin Total Bilirubin AST ALT Alkaline Phosphatase 139 H Lactate Dehydrogenase C-Reactive Protein Total Protein Albumin 2.4 L Triglycerides Arterial Blood Glucose Arterial Blood Ionized Calcium Ur Specific [place] Vancomycin Trough Coronavirus (PCR) 11/19/20 11/19/20 11/20/20 16:17 21:25 08:30 WBC RBC Hgb Hct Plt Count Lymph % (Auto) Leslie % (Auto) Lymph # (Auto) Leslie # (Auto) Baso # (Auto) Seg Neutrophils % Seg Neuts % (Manual) Lymphocytes % (Manual) Seg Neutrophils # Seg Neutrophils # Man Lymphocytes # (Manual) D-Dimer ABG pH POC ABG pCO2 POC ABG pO2 ABG pO2 ABG HCO3 ABG O2 Saturation ABG Base Excess ABG Hemoglobin ABG Oxyhemoglobin ABG Sodium ABG Potassium ABG Chloride ABG Glucose Oxyhemoglobin Carboxyhemoglobin Sodium Potassium Chloride Carbon Dioxide BUN Creatinine Glucose POC Glucose 364 H 347 H 141 H Hemoglobin A1c Lactic Acid Calcium Ferritin Total Bilirubin AST ALT Alkaline Phosphatase Lactate Dehydrogenase C-Reactive Protein Total Protein Albumin Triglycerides Arterial Blood Glucose Arterial Blood Ionized Calcium Ur Specific [place] Vancomycin Trough Coronavirus (PCR) 11/20/20 11/20/20 11/20/20 08:50 11:32 16:19 WBC RBC Hgb Hct Plt Count Lymph % (Auto) Leslie % (Auto) Lymph # (Auto) Leslie # (Auto) Baso # (Auto) Seg Neutrophils % Seg Neuts % (Manual) Lymphocytes % (Manual) Seg Neutrophils # Seg Neutrophils # Man Lymphocytes # (Manual) D-Dimer ABG pH POC ABG pCO2 POC ABG pO2 ABG pO2 ABG HCO3 ABG O2 Saturation ABG Base Excess ABG Hemoglobin ABG Oxyhemoglobin ABG Sodium ABG Potassium ABG Chloride ABG Glucose Oxyhemoglobin Carboxyhemoglobin Sodium 132 L Potassium Chloride 97.6 L Carbon Dioxide BUN 26 H Creatinine 0.5 L Glucose 201 H POC Glucose 296 H 327 H Hemoglobin A1c Lactic Acid Calcium 7.9 L Ferritin Total Bilirubin AST ALT Alkaline Phosphatase 137 H Lactate Dehydrogenase C-Reactive Protein Total Protein Albumin 2.6 L Triglycerides Arterial Blood Glucose Arterial Blood Ionized Calcium Ur Specific [place] Vancomycin Trough Coronavirus (PCR) 11/20/20 11/21/20 11/21/20 22:09 07:59 13:51 WBC RBC Hgb Hct Plt Count Lymph % (Auto) Leslie % (Auto) Lymph # (Auto) Leslie # (Auto) Baso # (Auto) Seg Neutrophils % Seg Neuts % (Manual) Lymphocytes % (Manual) Seg Neutrophils # Seg Neutrophils # Man Lymphocytes # (Manual) D-Dimer ABG pH POC ABG pCO2 POC ABG pO2 ABG pO2 ABG HCO3 ABG O2 Saturation ABG Base Excess ABG Hemoglobin ABG Oxyhemoglobin ABG Sodium ABG Potassium ABG Chloride ABG Glucose Oxyhemoglobin Carboxyhemoglobin Sodium Potassium Chloride Carbon Dioxide BUN Creatinine Glucose POC Glucose 311 H 218 H 304 H Hemoglobin A1c Lactic Acid Calcium Ferritin Total Bilirubin AST ALT Alkaline Phosphatase Lactate Dehydrogenase C-Reactive Protein Total Protein Albumin Triglycerides Arterial Blood Glucose Arterial Blood Ionized Calcium Ur Specific [place] Vancomycin Trough Coronavirus (PCR) 11/21/20 11/21/20 11/21/20 16:09 21:34 23:00 WBC RBC Hgb Hct Plt Count Lymph % (Auto) Leslie % (Auto) Lymph # (Auto) Leslie # (Auto) Baso # (Auto) Seg Neutrophils % Seg Neuts % (Manual) Lymphocytes % (Manual) Seg Neutrophils # Seg Neutrophils # Man Lymphocytes # (Manual) D-Dimer ABG pH 7.206 L POC ABG pCO2 59.3 H POC ABG pO2 76.7 L ABG pO2 ABG HCO3 ABG O2 Saturation ABG Base Excess ABG Hemoglobin ABG Oxyhemoglobin ABG Sodium 133.1 L ABG Potassium ABG Chloride ABG Glucose 320 H Oxyhemoglobin Carboxyhemoglobin Sodium Potassium Chloride Carbon Dioxide BUN Creatinine Glucose POC Glucose 239 H 279 H Hemoglobin A1c Lactic Acid Calcium Ferritin Total Bilirubin AST ALT Alkaline Phosphatase Lactate Dehydrogenase C-Reactive Protein Total Protein Albumin Triglycerides Arterial Blood Glucose 320 H Arterial Blood Ionized Calcium Ur Specific [place] Vancomycin Trough Coronavirus (PCR) 11/22/20 11/22/20 11/22/20 04:52 04:52 04:52 WBC RBC Hgb Hct Plt Count Lymph % (Auto) Leslie % (Auto) Lymph # (Auto) Leslie # (Auto) Baso # (Auto) Seg Neutrophils % Seg Neuts % (Manual) Lymphocytes % (Manual) Seg Neutrophils # Seg Neutrophils # Man Lymphocytes # (Manual) D-Dimer 1858.36 H ABG pH POC ABG pCO2 POC ABG pO2 ABG pO2 ABG HCO3 ABG O2 Saturation ABG Base Excess ABG Hemoglobin ABG Oxyhemoglobin ABG Sodium ABG Potassium ABG Chloride ABG Glucose Oxyhemoglobin Carboxyhemoglobin Sodium Potassium Chloride Carbon Dioxide BUN Creatinine Glucose POC Glucose Hemoglobin A1c Lactic Acid Calcium Ferritin 734.2 H Total Bilirubin AST ALT Alkaline Phosphatase Lactate Dehydrogenase 404 H C-Reactive Protein 2.80 H Total Protein Albumin Triglycerides Arterial Blood Glucose Arterial Blood Ionized Calcium Ur Specific [place] Vancomycin Trough Coronavirus (PCR) 11/22/20 11/22/20 11/22/20 05:12 05:39 11:50 WBC RBC Hgb Hct Plt Count Lymph % (Auto) Leslie % (Auto) Lymph # (Auto) Leslie # (Auto) Baso # (Auto) Seg Neutrophils % Seg Neuts % (Manual) Lymphocytes % (Manual) Seg Neutrophils # Seg Neutrophils # Man Lymphocytes # (Manual) D-Dimer ABG pH POC ABG pCO2 POC ABG pO2 51.0 L ABG pO2 ABG HCO3 ABG O2 Saturation ABG Base Excess ABG Hemoglobin ABG Oxyhemoglobin ABG Sodium 131.2 L ABG Potassium 4.6 H ABG Chloride ABG Glucose 317 H Oxyhemoglobin Carboxyhemoglobin Sodium Potassium Chloride Carbon Dioxide BUN Creatinine Glucose POC Glucose 340 H 417 H Hemoglobin A1c Lactic Acid Calcium Ferritin Total Bilirubin AST ALT Alkaline Phosphatase Lactate Dehydrogenase C-Reactive Protein Total Protein Albumin Triglycerides Arterial Blood Glucose 317 H Arterial Blood Ionized Calcium 4.4 L Ur Specific [place] Vancomycin Trough Coronavirus (PCR) 11/22/20 11/22/20 11/22/20 12:22 12:22 17:10 WBC 14.4 H RBC Hgb Hct Plt Count Lymph % (Auto) Leslie % (Auto) Lymph # (Auto) Leslie # (Auto) Baso # (Auto) Seg Neutrophils % Seg Neuts % (Manual) 98.0 H Lymphocytes % (Manual) Seg Neutrophils # Seg Neutrophils # Man 14.1 H Lymphocytes # (Manual) 0.0 L D-Dimer ABG pH POC ABG pCO2 POC ABG pO2 ABG pO2 ABG HCO3 ABG O2 Saturation ABG Base Excess ABG Hemoglobin ABG Oxyhemoglobin ABG Sodium ABG Potassium ABG Chloride ABG Glucose Oxyhemoglobin Carboxyhemoglobin Sodium 132 L Potassium Chloride Carbon Dioxide BUN 36 H Creatinine 0.6 L Glucose 219 H POC Glucose 157 H Hemoglobin A1c Lactic Acid Calcium 7.2 L Ferritin Total Bilirubin AST ALT Alkaline Phosphatase Lactate Dehydrogenase C-Reactive Protein Total Protein Albumin Triglycerides Arterial Blood Glucose Arterial Blood Ionized Calcium Ur Specific [place] Vancomycin Trough Coronavirus (PCR) 11/22/20 11/22/20 11/22/20 18:33 21:44 23:47 WBC RBC Hgb Hct Plt Count Lymph % (Auto) Leslie % (Auto) Lymph # (Auto) [place] # (Auto) Baso # (Auto) Seg Neutrophils % Seg Neuts % (Manual) Lymphocytes % (Manual) Seg Neutrophils # Seg Neutrophils # Man Lymphocytes # (Manual) D-Dimer ABG pH POC ABG pCO2 POC ABG pO2 60.8 L ABG pO2 ABG HCO3 ABG O2 Saturation ABG Base Excess ABG Hemoglobin ABG Oxyhemoglobin 88.1 L ABG Sodium 135.1 L ABG Potassium ABG Chloride ABG Glucose 141 H Oxyhemoglobin Carboxyhemoglobin Sodium Potassium Chloride Carbon Dioxide BUN Creatinine Glucose POC Glucose 117 H 123 H Hemoglobin A1c Lactic Acid Calcium Ferritin Total Bilirubin AST ALT Alkaline Phosphatase Lactate Dehydrogenase C-Reactive Protein Total Protein Albumin Triglycerides Arterial Blood Glucose 141 H Arterial Blood Ionized Calcium Ur Specific [place] Vancomycin Trough Coronavirus (PCR) 11/23/20 11/23/20 11/23/20 04:00 04:00 05:23 WBC 14.4 H RBC Hgb Hct Plt Count Lymph % (Auto) [place] % (Auto) Lymph # (Auto) [place] # (Auto) Baso # (Auto) Seg Neutrophils % Seg Neuts % (Manual) Lymphocytes % (Manual) Seg Neutrophils # Seg Neutrophils # Man Lymphocytes # (Manual) D-Dimer ABG pH POC ABG pCO2 POC ABG pO2 ABG pO2 ABG HCO3 ABG O2 Saturation ABG Base Excess ABG Hemoglobin ABG Oxyhemoglobin ABG Sodium ABG Potassium ABG Chloride ABG Glucose Oxyhemoglobin Carboxyhemoglobin Sodium 136 L Potassium Chloride Carbon Dioxide BUN 33 H Creatinine 0.6 L Glucose 115 H POC Glucose 173 H Hemoglobin A1c Lactic Acid Calcium 7.1 L Ferritin Total Bilirubin AST 64 H ALT 75 H Alkaline Phosphatase Lactate Dehydrogenase C-Reactive Protein Total Protein 5.9 L D Albumin 2.4 L Triglycerides Arterial Blood Glucose Arterial Blood Ionized Calcium Ur Specific [place] Vancomycin Trough Coronavirus (PCR) 11/23/20 11/23/20 11/23/20 05:40 11:27 17:10 WBC RBC Hgb Hct Plt Count Lymph % (Auto) [place] % (Auto) Lymph # (Auto) [place] # (Auto) Baso # (Auto) Seg Neutrophils % Seg Neuts % (Manual) Lymphocytes % (Manual) Seg Neutrophils # Seg Neutrophils # Man Lymphocytes # (Manual) D-Dimer ABG pH POC ABG pCO2 POC ABG pO2 56.5 L ABG pO2 ABG HCO3 ABG O2 Saturation ABG Base Excess ABG Hemoglobin ABG Oxyhemoglobin ABG Sodium ABG Potassium ABG Chloride 109.0 H ABG Glucose 114 H Oxyhemoglobin Carboxyhemoglobin Sodium Potassium Chloride Carbon Dioxide BUN Creatinine Glucose POC Glucose 114 H 136 H Hemoglobin A1c Lactic Acid Calcium Ferritin Total Bilirubin AST ALT Alkaline Phosphatase Lactate Dehydrogenase C-Reactive Protein Total Protein Albumin Triglycerides Arterial Blood Glucose 114 H Arterial Blood Ionized Calcium 4.5 L Ur Specific [place] Vancomycin Trough Coronavirus (PCR) 11/24/20 11/24/20 11/24/20 05:14 05:14 05:14 WBC RBC Hgb Hct Plt Count Lymph % (Auto) [place] % (Auto) Lymph # (Auto) [place] # (Auto) Baso # (Auto) Seg Neutrophils % Seg Neuts % (Manual) Lymphocytes % (Manual) Seg Neutrophils # Seg Neutrophils # Man Lymphocytes # (Manual) D-Dimer 1433.39 H ABG pH POC ABG pCO2 POC ABG pO2 ABG pO2 ABG HCO3 ABG O2 Saturation ABG Base Excess ABG Hemoglobin ABG Oxyhemoglobin ABG Sodium ABG Potassium ABG Chloride ABG Glucose Oxyhemoglobin Carboxyhemoglobin Sodium Potassium Chloride Carbon Dioxide BUN Creatinine Glucose POC Glucose Hemoglobin A1c Lactic Acid Calcium Ferritin 997.5 H Total Bilirubin AST ALT Alkaline Phosphatase Lactate Dehydrogenase 463 H C-Reactive Protein Total Protein Albumin Triglycerides Arterial Blood Glucose Arterial Blood Ionized Calcium Ur Specific [place] Vancomycin Trough Coronavirus (PCR) 11/24/20 11/24/20 11/24/20 05:31 05:36 12:05 WBC RBC Hgb Hct Plt Count Lymph % (Auto) [place] % (Auto) Lymph # (Auto) [place] # (Auto) Baso # (Auto) Seg Neutrophils % Seg Neuts % (Manual) Lymphocytes % (Manual) Seg Neutrophils # Seg Neutrophils # Man Lymphocytes # (Manual) D-Dimer ABG pH POC ABG pCO2 POC ABG pO2 57.2 L ABG pO2 ABG HCO3 ABG O2 Saturation ABG Base Excess ABG Hemoglobin ABG Oxyhemoglobin ABG Sodium ABG Potassium ABG Chloride ABG Glucose 180 H Oxyhemoglobin Carboxyhemoglobin Sodium Potassium Chloride Carbon Dioxide BUN Creatinine Glucose POC Glucose 199 H 143 H Hemoglobin A1c Lactic Acid Calcium Ferritin Total Bilirubin AST ALT Alkaline Phosphatase Lactate Dehydrogenase C-Reactive Protein Total Protein Albumin Triglycerides Arterial Blood Glucose 180 H Arterial Blood Ionized Calcium 4.5 L Ur Specific [place] Vancomycin Trough Coronavirus (PCR) 11/24/20 11/24/20 11/24/20 12:14 17:47 23:47 WBC RBC Hgb Hct Plt Count Lymph % (Auto) [place] % (Auto) Lymph # (Auto) [place] # (Auto) Baso # (Auto) Seg Neutrophils % Seg Neuts % (Manual) Lymphocytes % (Manual) Seg Neutrophils # Seg Neutrophils # Man Lymphocytes # (Manual) D-Dimer ABG pH 7.261 L POC ABG pCO2 59.7 H POC ABG pO2 75.7 L ABG pO2 ABG HCO3 ABG O2 Saturation ABG Base Excess ABG Hemoglobin ABG Oxyhemoglobin 92.5 L ABG Sodium ABG Potassium ABG Chloride 108.0 H ABG Glucose 150 H Oxyhemoglobin Carboxyhemoglobin Sodium Potassium Chloride Carbon Dioxide BUN Creatinine Glucose POC Glucose 223 H 179 H Hemoglobin A1c Lactic Acid Calcium Ferritin Total Bilirubin AST ALT Alkaline Phosphatase Lactate Dehydrogenase C-Reactive Protein Total Protein Albumin Triglycerides Arterial Blood Glucose 150 H Arterial Blood Ionized Calcium Ur Specific [place] Vancomycin Trough Coronavirus (PCR) 11/25/20 11/25/20 11/25/20 03:29 05:07 05:15 WBC 13.9 H RBC Hgb Hct Plt Count Lymph % (Auto) [place] % (Auto) Lymph # (Auto) [place] # (Auto) Baso # (Auto) Seg Neutrophils % Seg Neuts % (Manual) 97.0 H Lymphocytes % (Manual) Seg Neutrophils # Seg Neutrophils # Man 13.5 H Lymphocytes # (Manual) 0.0 L D-Dimer ABG pH 7.272 L POC ABG pCO2 69.0 H POC ABG pO2 132.9 H ABG pO2 ABG HCO3 ABG O2 Saturation ABG Base Excess ABG Hemoglobin ABG Oxyhemoglobin ABG Sodium ABG Potassium ABG Chloride ABG Glucose 174 H Oxyhemoglobin Carboxyhemoglobin Sodium Potassium Chloride Carbon Dioxide BUN Creatinine Glucose POC Glucose 168 H Hemoglobin A1c Lactic Acid Calcium Ferritin Total Bilirubin AST ALT Alkaline Phosphatase Lactate Dehydrogenase C-Reactive Protein Total Protein Albumin Triglycerides Arterial Blood Glucose 174 H Arterial Blood Ionized Calcium Ur Specific [place] Vancomycin Trough Coronavirus (PCR) 11/25/20 11/25/20 11/25/20 05:15 11:25 17:35 WBC RBC Hgb Hct Plt Count Lymph % (Auto) [place] % (Auto) Lymph # (Auto) [place] # (Auto) Baso # (Auto) Seg Neutrophils % Seg Neuts % (Manual) Lymphocytes % (Manual) Seg Neutrophils # Seg Neutrophils # Man Lymphocytes # (Manual) D-Dimer ABG pH POC ABG pCO2 POC ABG pO2 ABG pO2 ABG HCO3 ABG O2 Saturation ABG Base Excess ABG Hemoglobin ABG Oxyhemoglobin ABG Sodium ABG Potassium ABG Chloride ABG Glucose Oxyhemoglobin Carboxyhemoglobin Sodium Potassium Chloride Carbon Dioxide BUN 29 H Creatinine 0.5 L Glucose 161 H POC Glucose 224 H 228 H Hemoglobin A1c Lactic Acid Calcium 7.8 L Ferritin Total Bilirubin AST 89 H ALT 129 H Alkaline Phosphatase Lactate Dehydrogenase C-Reactive Protein Total Protein 5.8 L Albumin 2.5 L Triglycerides Arterial Blood Glucose Arterial Blood Ionized Calcium Ur Specific [place] Vancomycin Trough Coronavirus (PCR) 11/25/20 11/25/20 11/26/20 20:45 23:28 04:00 WBC RBC Hgb Hct Plt Count Lymph % (Auto) [place] % (Auto) Lymph # (Auto) [place] # (Auto) Baso # (Auto) Seg Neutrophils % Seg Neuts % (Manual) Lymphocytes % (Manual) Seg Neutrophils # Seg Neutrophils # Man Lymphocytes # (Manual) D-Dimer ABG pH POC ABG pCO2 POC ABG pO2 ABG pO2 ABG HCO3 ABG O2 Saturation ABG Base Excess ABG Hemoglobin ABG Oxyhemoglobin ABG Sodium ABG Potassium ABG Chloride ABG Glucose Oxyhemoglobin Carboxyhemoglobin Sodium Potassium Chloride Carbon Dioxide BUN Creatinine Glucose POC Glucose 177 H 243 H Hemoglobin A1c Lactic Acid Calcium Ferritin 778.8 H Total Bilirubin AST ALT Alkaline Phosphatase Lactate Dehydrogenase C-Reactive Protein Total Protein Albumin Triglycerides Arterial Blood Glucose Arterial Blood Ionized Calcium Ur Specific [place] Vancomycin Trough Coronavirus (PCR) 11/26/20 11/26/20 11/26/20 04:00 05:34 06:04 WBC RBC Hgb Hct Plt Count Lymph % (Auto) [place] % (Auto) Lymph # (Auto) [place] # (Auto) Baso # (Auto) Seg Neutrophils % Seg Neuts % (Manual) Lymphocytes % (Manual) Seg Neutrophils # Seg Neutrophils # Man Lymphocytes # (Manual) D-Dimer 926.11 H ABG pH POC ABG pCO2 POC ABG pO2 ABG pO2 ABG HCO3 ABG O2 Saturation ABG Base Excess ABG Hemoglobin ABG Oxyhemoglobin ABG Sodium ABG Potassium ABG Chloride ABG Glucose Oxyhemoglobin Carboxyhemoglobin Sodium Potassium Chloride Carbon Dioxide 39 H D BUN 30 H Creatinine 0.5 L Glucose 193 H POC Glucose 178 H Hemoglobin A1c Lactic Acid Calcium 7.7 L Ferritin Total Bilirubin AST 65 H ALT 132 H Alkaline Phosphatase Lactate Dehydrogenase 288 H C-Reactive Protein 1.40 H Total Protein 5.7 L Albumin 2.4 L Triglycerides Arterial Blood Glucose Arterial Blood Ionized Calcium Ur Specific [place] Vancomycin Trough Coronavirus (PCR) 11/26/20 11/26/20 11/26/20 06:04 08:47 11:20 WBC 12.4 H RBC Hgb Hct Plt Count Lymph % (Auto) [place] % (Auto) Lymph # (Auto) [place] # (Auto) Baso # (Auto) Seg Neutrophils % Seg Neuts % (Manual) 98.0 H Lymphocytes % (Manual) 1.0 L Seg Neutrophils # Seg Neutrophils # Man 12.2 H Lymphocytes # (Manual) 0.1 L D-Dimer ABG pH POC ABG pCO2 75.2 H POC ABG pO2 61.9 L ABG pO2 ABG HCO3 ABG O2 Saturation ABG Base Excess ABG Hemoglobin ABG Oxyhemoglobin 90.3 L ABG Sodium ABG Potassium ABG Chloride ABG Glucose 243 H Oxyhemoglobin Carboxyhemoglobin Sodium Potassium Chloride Carbon Dioxide BUN Creatinine Glucose POC Glucose 255 H Hemoglobin A1c Lactic Acid Calcium Ferritin Total Bilirubin AST ALT Alkaline Phosphatase Lactate Dehydrogenase C-Reactive Protein Total Protein Albumin Triglycerides Arterial Blood Glucose 243 H Arterial Blood Ionized Calcium Ur Specific [place] Vancomycin Trough Coronavirus (PCR) 11/26/20 11/26/20 11/26/20 16:20 17:15 23:41 WBC RBC Hgb Hct Plt Count Lymph % (Auto) [place] % (Auto) Lymph # (Auto) [place] # (Auto) Baso # (Auto) Seg Neutrophils % Seg Neuts % (Manual) Lymphocytes % (Manual) Seg Neutrophils # Seg Neutrophils # Man Lymphocytes # (Manual) D-Dimer ABG pH POC ABG pCO2 66.6 H POC ABG pO2 78.1 L ABG pO2 ABG HCO3 ABG O2 Saturation ABG Base Excess ABG Hemoglobin ABG Oxyhemoglobin ABG Sodium ABG Potassium ABG Chloride ABG Glucose 244 H Oxyhemoglobin Carboxyhemoglobin Sodium Potassium Chloride Carbon Dioxide BUN Creatinine Glucose POC Glucose 219 H 210 H Hemoglobin A1c Lactic Acid Calcium Ferritin Total Bilirubin AST ALT Alkaline Phosphatase Lactate Dehydrogenase C-Reactive Protein Total Protein Albumin Triglycerides Arterial Blood Glucose 244 H Arterial Blood Ionized Calcium Ur Specific [place] Vancomycin Trough Coronavirus (PCR) 11/27/20 11/27/20 11/27/20 04:46 05:38 06:25 WBC 13.8 H RBC Hgb Hct Plt Count Lymph % (Auto) 2.0 L [place] % (Auto) Lymph # (Auto) 0.3 L [place] # (Auto) Baso # (Auto) Seg Neutrophils % Seg Neuts % (Manual) 96.0 H Lymphocytes % (Manual) Seg Neutrophils # 12.7 H Seg Neutrophils # Man 13.2 H Lymphocytes # (Manual) 0.0 L D-Dimer ABG pH POC ABG pCO2 63.0 H POC ABG pO2 53.6 L ABG pO2 ABG HCO3 ABG O2 Saturation ABG Base Excess ABG Hemoglobin ABG Oxyhemoglobin 87.8 L ABG Sodium 115.4 L ABG Potassium ABG Chloride ABG Glucose 219 H Oxyhemoglobin Carboxyhemoglobin Sodium Potassium Chloride Carbon Dioxide BUN Creatinine Glucose POC Glucose 227 H Hemoglobin A1c Lactic Acid Calcium Ferritin Total Bilirubin AST ALT Alkaline Phosphatase Lactate Dehydrogenase C-Reactive Protein Total Protein Albumin Triglycerides Arterial Blood Glucose 219 H Arterial Blood Ionized Calcium Ur Specific [place] Vancomycin Trough Coronavirus (PCR) 11/27/20 11/27/20 11/27/20 06:25 18:05 23:29 WBC RBC Hgb Hct Plt Count Lymph % (Auto) [place] % (Auto) Lymph # (Auto) [place] # (Auto) Baso # (Auto) Seg Neutrophils % Seg Neuts % (Manual) Lymphocytes % (Manual) Seg Neutrophils # Seg Neutrophils # Man Lymphocytes # (Manual) D-Dimer ABG pH POC ABG pCO2 POC ABG pO2 ABG pO2 ABG HCO3 ABG O2 Saturation ABG Base Excess ABG Hemoglobin ABG Oxyhemoglobin ABG Sodium ABG Potassium ABG Chloride ABG Glucose Oxyhemoglobin Carboxyhemoglobin Sodium Potassium Chloride Carbon Dioxide 38 H BUN 34 H Creatinine 0.4 L Glucose 243 H POC Glucose 329 H 227 H Hemoglobin A1c Lactic Acid Calcium 7.9 L Ferritin Total Bilirubin AST 50 H ALT 110 H Alkaline Phosphatase Lactate Dehydrogenase C-Reactive Protein Total Protein 6.1 L Albumin 2.4 L Triglycerides Arterial Blood Glucose Arterial Blood Ionized Calcium Ur Specific [place] Vancomycin Trough Coronavirus (PCR) 11/28/20 11/28/20 11/28/20 03:45 03:45 03:46 WBC 12.2 H RBC Hgb Hct Plt Count Lymph % (Auto) [place] % (Auto) Lymph # (Auto) [place] # (Auto) Baso # (Auto) Seg Neutrophils % Seg Neuts % (Manual) 93.0 H Lymphocytes % (Manual) 2.0 L Seg Neutrophils # Seg Neutrophils # Man 11.3 H Lymphocytes # (Manual) 0.2 L D-Dimer ABG pH POC ABG pCO2 68.4 H POC ABG pO2 55.4 L ABG pO2 ABG HCO3 ABG O2 Saturation ABG Base Excess ABG Hemoglobin ABG Oxyhemoglobin ABG Sodium ABG Potassium ABG Chloride ABG Glucose 197 H Oxyhemoglobin Carboxyhemoglobin Sodium Potassium Chloride Carbon Dioxide 36 H BUN 37 H Creatinine 0.4 L Glucose 194 H POC Glucose Hemoglobin A1c Lactic Acid Calcium 8.1 L Ferritin Total Bilirubin AST ALT 86 H Alkaline Phosphatase Lactate Dehydrogenase C-Reactive Protein Total Protein 6.0 L Albumin 2.3 L Triglycerides Arterial Blood Glucose 197 H Arterial Blood Ionized Calcium Ur Specific [place] Vancomycin Trough Coronavirus (PCR) 11/28/20 11/28/20 11/29/20 05:24 12:21 04:41 WBC RBC Hgb Hct Plt Count Lymph % (Auto) [place] % (Auto) Lymph # (Auto) [place] # (Auto) Baso # (Auto) Seg Neutrophils % Seg Neuts % (Manual) Lymphocytes % (Manual) Seg Neutrophils # Seg Neutrophils # Man Lymphocytes # (Manual) D-Dimer ABG pH POC ABG pCO2 55.1 H POC ABG pO2 53.6 L ABG pO2 ABG HCO3 ABG O2 Saturation ABG Base Excess ABG Hemoglobin ABG Oxyhemoglobin 87.1 L ABG Sodium 131.2 L ABG Potassium ABG Chloride ABG Glucose 164 H Oxyhemoglobin Carboxyhemoglobin Sodium Potassium Chloride Carbon Dioxide BUN Creatinine Glucose POC Glucose 173 H 126 H Hemoglobin A1c Lactic Acid Calcium Ferritin Total Bilirubin AST ALT Alkaline Phosphatase Lactate Dehydrogenase C-Reactive Protein Total Protein Albumin Triglycerides Arterial Blood Glucose 164 H Arterial Blood Ionized Calcium 4.4 L Ur Specific [place] Vancomycin Trough Coronavirus (PCR) 11/29/20 11/29/20 11/29/20 05:29 12:41 13:28 WBC RBC Hgb Hct Plt Count Lymph % (Auto) [place] % (Auto) Lymph # (Auto) [place] # (Auto) Baso # (Auto) Seg Neutrophils % Seg Neuts % (Manual) Lymphocytes % (Manual) Seg Neutrophils # Seg Neutrophils # Man Lymphocytes # (Manual) D-Dimer ABG pH POC ABG pCO2 POC ABG pO2 ABG pO2 ABG HCO3 ABG O2 Saturation ABG Base Excess ABG Hemoglobin ABG Oxyhemoglobin ABG Sodium ABG Potassium ABG Chloride ABG Glucose Oxyhemoglobin Carboxyhemoglobin Sodium Potassium Chloride Carbon Dioxide 40 H BUN 32 H Creatinine 0.4 L Glucose 274 H POC Glucose 173 H 257 H Hemoglobin A1c Lactic Acid Calcium 7.2 L Ferritin Total Bilirubin AST 57 H ALT 102 H Alkaline Phosphatase Lactate Dehydrogenase C-Reactive Protein Total Protein 5.7 L Albumin 2.1 L Triglycerides Arterial Blood Glucose Arterial Blood Ionized Calcium Ur Specific [place] Vancomycin Trough Coronavirus (PCR) 11/29/20 11/29/20 11/29/20 15:40 17:36 21:26 WBC RBC Hgb Hct Plt Count Lymph % (Auto) [place] % (Auto) Lymph # (Auto) [place] # (Auto) Baso # (Auto) Seg Neutrophils % Seg Neuts % (Manual) Lymphocytes % (Manual) Seg Neutrophils # Seg Neutrophils # Man Lymphocytes # (Manual) D-Dimer ABG pH POC ABG pCO2 POC ABG pO2 ABG pO2 ABG HCO3 ABG O2 Saturation ABG Base Excess ABG Hemoglobin ABG Oxyhemoglobin ABG Sodium ABG Potassium ABG Chloride ABG Glucose Oxyhemoglobin Carboxyhemoglobin Sodium Potassium Chloride Carbon Dioxide BUN Creatinine Glucose POC Glucose 240 H 244 H Hemoglobin A1c Lactic Acid Calcium Ferritin Total Bilirubin AST ALT Alkaline Phosphatase Lactate Dehydrogenase C-Reactive Protein Total Protein Albumin Triglycerides Arterial Blood Glucose Arterial Blood Ionized Calcium Ur Specific [place] Vancomycin Trough 4.0 L Coronavirus (PCR) 11/29/20 11/30/20 11/30/20 23:26 03:30 03:30 WBC RBC Hgb Hct Plt Count Lymph % (Auto) [place] % (Auto) Lymph # (Auto) [place] # (Auto) Baso # (Auto) Seg Neutrophils % Seg Neuts % (Manual) 97.0 H Lymphocytes % (Manual) 1.0 L Seg Neutrophils # Seg Neutrophils # Man 9.9 H Lymphocytes # (Manual) 0.1 L D-Dimer ABG pH POC ABG pCO2 POC ABG pO2 ABG pO2 ABG HCO3 ABG O2 Saturation ABG Base Excess ABG Hemoglobin ABG Oxyhemoglobin ABG Sodium ABG Potassium ABG Chloride ABG Glucose Oxyhemoglobin Carboxyhemoglobin Sodium Potassium Chloride Carbon Dioxide 38 H BUN 34 H Creatinine 0.4 L Glucose 305 H POC Glucose 283 H Hemoglobin A1c Lactic Acid Calcium 7.6 L Ferritin Total Bilirubin AST ALT 89 H Alkaline Phosphatase Lactate Dehydrogenase C-Reactive Protein Total Protein 6.0 L Albumin 2.3 L Triglycerides Arterial Blood Glucose Arterial Blood Ionized Calcium Ur Specific [place] Vancomycin Trough Coronavirus (PCR) 11/30/20 11/30/20 11/30/20 03:57 05:22 12:05 WBC RBC Hgb Hct Plt Count Lymph % (Auto) [place] % (Auto) Lymph # (Auto) [place] # (Auto) Baso # (Auto) Seg Neutrophils % Seg Neuts % (Manual) Lymphocytes % (Manual) Seg Neutrophils # Seg Neutrophils # Man Lymphocytes # (Manual) D-Dimer ABG pH POC ABG pCO2 60.8 H POC ABG pO2 51.1 L ABG pO2 ABG HCO3 ABG O2 Saturation ABG Base Excess ABG Hemoglobin ABG Oxyhemoglobin 84.6 L ABG Sodium ABG Potassium ABG Chloride ABG Glucose 315 H Oxyhemoglobin Carboxyhemoglobin Sodium Potassium Chloride Carbon Dioxide BUN Creatinine Glucose POC Glucose 295 H 413 H Hemoglobin A1c Lactic Acid Calcium Ferritin Total Bilirubin AST ALT Alkaline Phosphatase Lactate Dehydrogenase C-Reactive Protein Total Protein Albumin Triglycerides Arterial Blood Glucose 315 H Arterial Blood Ionized Calcium 4.5 L Ur Specific [place] Vancomycin Trough Coronavirus (PCR) 11/30/20 11/30/20 12/01/20 17:24 23:25 02:14 WBC RBC Hgb Hct Plt Count Lymph % (Auto) [place] % (Auto) Lymph # (Auto) [place] # (Auto) Baso # (Auto) Seg Neutrophils % Seg Neuts % (Manual) Lymphocytes % (Manual) Seg Neutrophils # Seg Neutrophils # Man Lymphocytes # (Manual) D-Dimer ABG pH 7.278 L POC ABG pCO2 78.1 H POC ABG pO2 79.5 L ABG pO2 ABG HCO3 ABG O2 Saturation ABG Base Excess ABG Hemoglobin 11.6 L ABG Oxyhemoglobin ABG Sodium 134.5 L ABG Potassium 4.6 H ABG Chloride ABG Glucose 286 H Oxyhemoglobin Carboxyhemoglobin Sodium Potassium Chloride Carbon Dioxide BUN Creatinine Glucose POC Glucose 305 H 302 H Hemoglobin A1c Lactic Acid Calcium Ferritin Total Bilirubin AST ALT Alkaline Phosphatase Lactate Dehydrogenase C-Reactive Protein Total Protein Albumin Triglycerides Arterial Blood Glucose 286 H Arterial Blood Ionized Calcium Ur Specific [place] Vancomycin Trough Coronavirus (PCR) 12/01/20 12/01/20 12/01/20 03:35 03:35 05:22 WBC 13.4 H RBC 3.54 L Hgb 10.4 L Hct 31.8 L Plt Count Lymph % (Auto) [place] % (Auto) Lymph # (Auto) [place] # (Auto) Baso # (Auto) Seg Neutrophils % Seg Neuts % (Manual) 95.0 H Lymphocytes % (Manual) 3.0 L Seg Neutrophils # Seg Neutrophils # Man 12.7 H Lymphocytes # (Manual) 0.4 L D-Dimer ABG pH POC ABG pCO2 POC ABG pO2 ABG pO2 ABG HCO3 ABG O2 Saturation ABG Base Excess ABG Hemoglobin ABG Oxyhemoglobin ABG Sodium ABG Potassium ABG Chloride ABG Glucose Oxyhemoglobin Carboxyhemoglobin Sodium Potassium Chloride Carbon Dioxide 35 H BUN 34 H Creatinine 0.5 L Glucose 279 H POC Glucose 259 H Hemoglobin A1c Lactic Acid Calcium 7.6 L Ferritin Total Bilirubin AST ALT 63 H Alkaline Phosphatase Lactate Dehydrogenase C-Reactive Protein Total Protein 4.8 L Albumin 2.1 L Triglycerides Arterial Blood Glucose Arterial Blood Ionized Calcium Ur Specific [place] Vancomycin Trough Coronavirus (PCR) 12/01/20 12/01/20 12/01/20 12:05 17:40 23:46 WBC RBC Hgb Hct Plt Count Lymph % (Auto) [place] % (Auto) Lymph # (Auto) [place] # (Auto) Baso # (Auto) Seg Neutrophils % Seg Neuts % (Manual) Lymphocytes % (Manual) Seg Neutrophils # Seg Neutrophils # Man Lymphocytes # (Manual) D-Dimer ABG pH POC ABG pCO2 POC ABG pO2 ABG pO2 ABG HCO3 ABG O2 Saturation ABG Base Excess ABG Hemoglobin ABG Oxyhemoglobin ABG Sodium ABG Potassium ABG Chloride ABG Glucose Oxyhemoglobin Carboxyhemoglobin Sodium Potassium Chloride Carbon Dioxide BUN Creatinine Glucose POC Glucose 197 H 244 H 284 H Hemoglobin A1c Lactic Acid Calcium Ferritin Total Bilirubin AST ALT Alkaline Phosphatase Lactate Dehydrogenase C-Reactive Protein Total Protein Albumin Triglycerides Arterial Blood Glucose Arterial Blood Ionized Calcium Ur Specific [place] Vancomycin Trough Coronavirus (PCR) 12/02/20 12/02/20 12/02/20 02:14 03:03 04:11 WBC 16.5 H RBC 3.55 L Hgb 10.5 L Hct 31.9 L Plt Count Lymph % (Auto) [place] % (Auto) Lymph # (Auto) [place] # (Auto) Baso # (Auto) Seg Neutrophils % Seg Neuts % (Manual) 90.0 H Lymphocytes % (Manual) 3.0 L Seg Neutrophils # Seg Neutrophils # Man 14.9 H Lymphocytes # (Manual) 0.5 L D-Dimer ABG pH POC ABG pCO2 74.8 H POC ABG pO2 58.9 L ABG pO2 ABG HCO3 ABG O2 Saturation ABG Base Excess ABG Hemoglobin 11.5 L ABG Oxyhemoglobin ABG Sodium ABG Potassium ABG Chloride ABG Glucose 264 H Oxyhemoglobin Carboxyhemoglobin Sodium Potassium Chloride Carbon Dioxide 37 H BUN 30 H Creatinine 0.4 L Glucose 245 H POC Glucose Hemoglobin A1c Lactic Acid Calcium 7.5 L Ferritin Total Bilirubin AST ALT Alkaline Phosphatase Lactate Dehydrogenase C-Reactive Protein Total Protein 5.2 L Albumin 2.2 L Triglycerides Arterial Blood Glucose 264 H Arterial Blood Ionized Calcium 4.5 L Ur Specific [place] Vancomycin Trough Coronavirus (PCR) 12/02/20 12/02/20 12/02/20 05:19 11:46 17:52 WBC RBC Hgb Hct Plt Count Lymph % (Auto) [place] % (Auto) Lymph # (Auto) [place] # (Auto) Baso # (Auto) Seg Neutrophils % Seg Neuts % (Manual) Lymphocytes % (Manual) Seg Neutrophils # Seg Neutrophils # Man Lymphocytes # (Manual) D-Dimer ABG pH POC ABG pCO2 POC ABG pO2 ABG pO2 ABG HCO3 ABG O2 Saturation ABG Base Excess ABG Hemoglobin ABG Oxyhemoglobin ABG Sodium ABG Potassium ABG Chloride ABG Glucose Oxyhemoglobin Carboxyhemoglobin Sodium Potassium Chloride Carbon Dioxide BUN Creatinine Glucose POC Glucose 238 H 236 H 233 H Hemoglobin A1c Lactic Acid Calcium Ferritin Total Bilirubin AST ALT Alkaline Phosphatase Lactate Dehydrogenase C-Reactive Protein Total Protein Albumin Triglycerides Arterial Blood Glucose Arterial Blood Ionized Calcium Ur Specific [place] Vancomycin Trough Coronavirus (PCR) 12/02/20 12/03/20 12/03/20 23:23 03:21 04:35 WBC RBC Hgb Hct Plt Count 112 L Lymph % (Auto) [place] % (Auto) Lymph # (Auto) [place] # (Auto) Baso # (Auto) Seg Neutrophils % Seg Neuts % (Manual) 93.0 H Lymphocytes % (Manual) 4.0 L Seg Neutrophils # Seg Neutrophils # Man 9.1 H Lymphocytes # (Manual) 0.4 L D-Dimer ABG pH 7.299 L POC ABG pCO2 82.1 H POC ABG pO2 62.4 L ABG pO2 ABG HCO3 ABG O2 Saturation ABG Base Excess ABG Hemoglobin 11.5 L ABG Oxyhemoglobin 89.6 L ABG Sodium 134.3 L ABG Potassium ABG Chloride 95.0 L ABG Glucose 203 H Oxyhemoglobin Carboxyhemoglobin Sodium Potassium Chloride Carbon Dioxide BUN Creatinine Glucose POC Glucose 213 H Hemoglobin A1c Lactic Acid Calcium Ferritin Total Bilirubin AST ALT Alkaline Phosphatase Lactate Dehydrogenase C-Reactive Protein Total Protein Albumin Triglycerides Arterial Blood Glucose 203 H Arterial Blood Ionized Calcium 4.5 L Ur Specific [place] Vancomycin Trough Coronavirus (PCR) 12/03/20 12/03/20 12/03/20 04:35 05:42 11:28 WBC RBC Hgb Hct Plt Count Lymph % (Auto) [place] % (Auto) Lymph # (Auto) [place] # (Auto) Baso # (Auto) Seg Neutrophils % Seg Neuts % (Manual) Lymphocytes % (Manual) Seg Neutrophils # Seg Neutrophils # Man Lymphocytes # (Manual) D-Dimer ABG pH POC ABG pCO2 POC ABG pO2 ABG pO2 ABG HCO3 ABG O2 Saturation ABG Base Excess ABG Hemoglobin ABG Oxyhemoglobin ABG Sodium ABG Potassium ABG Chloride ABG Glucose Oxyhemoglobin Carboxyhemoglobin Sodium Potassium Chloride 97.8 L Carbon Dioxide 43 H* BUN 25 H Creatinine 0.3 L Glucose 214 H POC Glucose 193 H 211 H Hemoglobin A1c Lactic Acid Calcium 7.7 L Ferritin Total Bilirubin AST ALT 63 H Alkaline Phosphatase 132 H Lactate Dehydrogenase C-Reactive Protein Total Protein 5.1 L Albumin 2.4 L Triglycerides Arterial Blood Glucose Arterial Blood Ionized Calcium Ur Specific [place] Vancomycin Trough Coronavirus (PCR) 12/03/20 12/03/20 12/04/20 17:45 23:57 00:11 WBC RBC Hgb Hct Plt Count Lymph % (Auto) Leslie % (Auto) Lymph # (Auto) Leslie # (Auto) Baso # (Auto) Seg Neutrophils % Seg Neuts % (Manual) Lymphocytes % (Manual) Seg Neutrophils # Seg Neutrophils # Man Lymphocytes # (Manual) D-Dimer ABG pH POC ABG pCO2 POC ABG pO2 ABG pO2 ABG HCO3 ABG O2 Saturation ABG Base Excess ABG Hemoglobin ABG Oxyhemoglobin ABG Sodium ABG Potassium ABG Chloride ABG Glucose Oxyhemoglobin Carboxyhemoglobin Sodium Potassium Chloride Carbon Dioxide BUN Creatinine Glucose POC Glucose 231 H 240 H 239 H Hemoglobin A1c Lactic Acid Calcium Ferritin Total Bilirubin AST ALT Alkaline Phosphatase Lactate Dehydrogenase C-Reactive Protein Total Protein Albumin Triglycerides Arterial Blood Glucose Arterial Blood Ionized Calcium Ur Specific [place] Vancomycin Trough Coronavirus (PCR) 12/04/20 12/04/20 12/04/20 04:00 05:20 05:34 WBC RBC Hgb Hct Plt Count Lymph % (Auto) Leslie % (Auto) Lymph # (Auto) Leslie # (Auto) Baso # (Auto) Seg Neutrophils % Seg Neuts % (Manual) Lymphocytes % (Manual) Seg Neutrophils # Seg Neutrophils # Man Lymphocytes # (Manual) D-Dimer ABG pH POC ABG pCO2 84.4 H POC ABG pO2 68.0 L ABG pO2 ABG HCO3 ABG O2 Saturation ABG Base Excess ABG Hemoglobin 11.6 L ABG Oxyhemoglobin ABG Sodium 130.9 L ABG Potassium ABG Chloride 90.0 L ABG Glucose 244 H Oxyhemoglobin Carboxyhemoglobin Sodium Potassium Chloride Carbon Dioxide BUN Creatinine Glucose POC Glucose 241 H 213 H Hemoglobin A1c Lactic Acid Calcium Ferritin Total Bilirubin AST ALT Alkaline Phosphatase Lactate Dehydrogenase C-Reactive Protein Total Protein Albumin Triglycerides Arterial Blood Glucose 244 H Arterial Blood Ionized Calcium 4.4 L Ur Specific [place] Vancomycin Trough Coronavirus (PCR) 12/04/20 12/04/20 12/04/20 11:36 16:53 23:32 WBC RBC Hgb Hct Plt Count Lymph % (Auto) Leslie % (Auto) Lymph # (Auto) Leslie # (Auto) Baso # (Auto) Seg Neutrophils % Seg Neuts % (Manual) Lymphocytes % (Manual) Seg Neutrophils # Seg Neutrophils # Man Lymphocytes # (Manual) D-Dimer ABG pH POC ABG pCO2 POC ABG pO2 ABG pO2 ABG HCO3 ABG O2 Saturation ABG Base Excess ABG Hemoglobin ABG Oxyhemoglobin ABG Sodium ABG Potassium ABG Chloride ABG Glucose Oxyhemoglobin Carboxyhemoglobin Sodium Potassium Chloride Carbon Dioxide BUN Creatinine Glucose POC Glucose 196 H 127 H 230 H Hemoglobin A1c Lactic Acid Calcium Ferritin Total Bilirubin AST ALT Alkaline Phosphatase Lactate Dehydrogenase C-Reactive Protein Total Protein Albumin Triglycerides Arterial Blood Glucose Arterial Blood Ionized Calcium Ur Specific [place] Vancomycin Trough Coronavirus (PCR) 12/04/20 12/05/20 12/05/20 Unknown 04:16 05:21 WBC RBC Hgb Hct Plt Count Lymph % (Auto) Leslie % (Auto) Lymph # (Auto) Leslie # (Auto) Baso # (Auto) Seg Neutrophils % Seg Neuts % (Manual) Lymphocytes % (Manual) Seg Neutrophils # Seg Neutrophils # Man Lymphocytes # (Manual) D-Dimer ABG pH POC ABG pCO2 86.7 H POC ABG pO2 58.0 L ABG pO2 ABG HCO3 ABG O2 Saturation ABG Base Excess ABG Hemoglobin 11.6 L ABG Oxyhemoglobin 89 L ABG Sodium 130.1 L ABG Potassium 4.9 H ABG Chloride 89.0 L ABG Glucose 254 H Oxyhemoglobin Carboxyhemoglobin Sodium 136 L Potassium Chloride 90.0 L Carbon Dioxide 46 H* BUN 24 H Creatinine 0.3 L Glucose 226 H POC Glucose 213 H Hemoglobin A1c Lactic Acid Calcium 7.6 L Ferritin Total Bilirubin AST 46 H ALT 78 H Alkaline Phosphatase 172 H Lactate Dehydrogenase C-Reactive Protein Total Protein 6.0 L Albumin 2.8 L Triglycerides 156 H Arterial Blood Glucose 254 H Arterial Blood Ionized Calcium 4.4 L Ur Specific [place] Vancomycin Trough Coronavirus (PCR) 12/05/20 12/05/20 12/05/20 11:22 17:26 23:38 WBC RBC Hgb Hct Plt Count Lymph % (Auto) Leslie % (Auto) Lymph # (Auto) [place] # (Auto) Baso # (Auto) Seg Neutrophils % Seg Neuts % (Manual) Lymphocytes % (Manual) Seg Neutrophils # Seg Neutrophils # Man Lymphocytes # (Manual) D-Dimer ABG pH POC ABG pCO2 POC ABG pO2 ABG pO2 ABG HCO3 ABG O2 Saturation ABG Base Excess ABG Hemoglobin ABG Oxyhemoglobin ABG Sodium ABG Potassium ABG Chloride ABG Glucose Oxyhemoglobin Carboxyhemoglobin Sodium Potassium Chloride Carbon Dioxide BUN Creatinine Glucose POC Glucose 212 H 157 H 204 H Hemoglobin A1c Lactic Acid Calcium Ferritin Total Bilirubin AST ALT Alkaline Phosphatase Lactate Dehydrogenase C-Reactive Protein Total Protein Albumin Triglycerides Arterial Blood Glucose Arterial Blood Ionized Calcium Ur Specific [place] Vancomycin Trough Coronavirus (PCR) 12/06/20 12/06/20 12/06/20 04:31 04:31 05:12 WBC 17.0 H RBC 3.63 L Hgb 10.8 L D Hct 32.6 L D Plt Count Lymph % (Auto) Leslie % (Auto) Lymph # (Auto) [place] # (Auto) Baso # (Auto) Seg Neutrophils % Seg Neuts % (Manual) Lymphocytes % (Manual) Seg Neutrophils # Seg Neutrophils # Man Lymphocytes # (Manual) D-Dimer ABG pH POC ABG pCO2 85.9 H POC ABG pO2 57.6 L ABG pO2 ABG HCO3 ABG O2 Saturation ABG Base Excess ABG Hemoglobin ABG Oxyhemoglobin ABG Sodium 131.2 L ABG Potassium 4.8 H ABG Chloride 86.0 L ABG Glucose 200 H Oxyhemoglobin Carboxyhemoglobin Sodium 134 L Potassium 5.1 H Chloride 88.4 L Carbon Dioxide 47 H* BUN 23 H Creatinine 0.3 L Glucose 206 H POC Glucose Hemoglobin A1c Lactic Acid Calcium 8.3 L Ferritin Total Bilirubin AST 48 H ALT 91 H Alkaline Phosphatase 140 H Lactate Dehydrogenase C-Reactive Protein Total Protein 5.7 L Albumin 2.6 L Triglycerides Arterial Blood Glucose 200 H Arterial Blood Ionized Calcium 4.4 L Ur Specific [place] Vancomycin Trough Coronavirus (PCR) 12/06/20 12/06/20 12/06/20 05:24 12:18 16:45 WBC RBC Hgb Hct Plt Count Lymph % (Auto) Leslie % (Auto) Lymph # (Auto) [place] # (Auto) Baso # (Auto) Seg Neutrophils % Seg Neuts % (Manual) Lymphocytes % (Manual) Seg Neutrophils # Seg Neutrophils # Man Lymphocytes # (Manual) D-Dimer ABG pH POC ABG pCO2 POC ABG pO2 ABG pO2 ABG HCO3 ABG O2 Saturation ABG Base Excess ABG Hemoglobin ABG Oxyhemoglobin ABG Sodium ABG Potassium ABG Chloride ABG Glucose Oxyhemoglobin Carboxyhemoglobin Sodium Potassium Chloride Carbon Dioxide BUN Creatinine Glucose POC Glucose 186 H 187 H 150 H Hemoglobin A1c Lactic Acid Calcium Ferritin Total Bilirubin AST ALT Alkaline Phosphatase Lactate Dehydrogenase C-Reactive Protein Total Protein Albumin Triglycerides Arterial Blood Glucose Arterial Blood Ionized Calcium Ur Specific [place] Vancomycin Trough Coronavirus (PCR) 12/06/20 12/07/20 12/07/20 23:43 05:20 05:21 WBC RBC Hgb Hct Plt Count Lymph % (Auto) [place] % (Auto) Lymph # (Auto) [place] # (Auto) Baso # (Auto) Seg Neutrophils % Seg Neuts % (Manual) Lymphocytes % (Manual) Seg Neutrophils # Seg Neutrophils # Man Lymphocytes # (Manual) D-Dimer ABG pH POC ABG pCO2 POC ABG pO2 ABG pO2 48.4 L ABG HCO3 50.8 H ABG O2 Saturation 86.2 L ABG Base Excess 22.4 H ABG Hemoglobin 11.0 L ABG Oxyhemoglobin ABG Sodium ABG Potassium ABG Chloride ABG Glucose Oxyhemoglobin 84.0 L Carboxyhemoglobin Sodium Potassium Chloride Carbon Dioxide BUN Creatinine Glucose POC Glucose 153 H 107 H Hemoglobin A1c Lactic Acid Calcium Ferritin Total Bilirubin AST ALT Alkaline Phosphatase Lactate Dehydrogenase C-Reactive Protein Total Protein Albumin Triglycerides Arterial Blood Glucose Arterial Blood Ionized Calcium Ur Specific [place] Vancomycin Trough Coronavirus (PCR) 12/07/20 12/07/20 12/07/20 13:20 14:28 17:35 WBC RBC Hgb Hct Plt Count Lymph % (Auto) [place] % (Auto) Lymph # (Auto) [place] # (Auto) Baso # (Auto) Seg Neutrophils % Seg Neuts % (Manual) Lymphocytes % (Manual) Seg Neutrophils # Seg Neutrophils # Man Lymphocytes # (Manual) D-Dimer ABG pH POC ABG pCO2 74.1 H POC ABG pO2 68.5 L ABG pO2 ABG HCO3 ABG O2 Saturation ABG Base Excess ABG Hemoglobin 10.7 L ABG Oxyhemoglobin 91.9 L ABG Sodium 132.2 L ABG Potassium 4.7 H ABG Chloride 88.0 L ABG Glucose 138 H Oxyhemoglobin Carboxyhemoglobin Sodium 134 L Potassium Chloride 87.4 L Carbon Dioxide 49 H* BUN Creatinine 0.2 L Glucose 132 H POC Glucose 176 H Hemoglobin A1c Lactic Acid Calcium 7.7 L Ferritin Total Bilirubin AST ALT Alkaline Phosphatase Lactate Dehydrogenase C-Reactive Protein Total Protein Albumin Triglycerides Arterial Blood Glucose 138 H Arterial Blood Ionized Calcium 4.0 L Ur Specific [place] Vancomycin Trough Coronavirus (PCR) 12/07/20 12/08/20 12/08/20 23:44 04:12 05:29 WBC RBC Hgb Hct Plt Count Lymph % (Auto) [place] % (Auto) Lymph # (Auto) [place] # (Auto) Baso # (Auto) Seg Neutrophils % Seg Neuts % (Manual) Lymphocytes % (Manual) Seg Neutrophils # Seg Neutrophils # Man Lymphocytes # (Manual) D-Dimer ABG pH POC ABG pCO2 POC ABG pO2 ABG pO2 69.7 L ABG HCO3 50.1 H ABG O2 Saturation ABG Base Excess 21.6 H ABG Hemoglobin 10.9 L ABG Oxyhemoglobin ABG Sodium ABG Potassium ABG Chloride ABG Glucose Oxyhemoglobin 93.2 L Carboxyhemoglobin Sodium Potassium Chloride Carbon Dioxide BUN Creatinine Glucose POC Glucose 143 H 143 H Hemoglobin A1c Lactic Acid Calcium Ferritin Total Bilirubin AST ALT Alkaline Phosphatase Lactate Dehydrogenase C-Reactive Protein Total Protein Albumin Triglycerides Arterial Blood Glucose Arterial Blood Ionized Calcium Ur Specific [place] Vancomycin Trough Coronavirus (PCR) 12/08/20 12/08/20 12/09/20 06:10 06:10 04:24 WBC 12.0 H RBC 3.18 L Hgb 9.5 L Hct 28.9 L Plt Count Lymph % (Auto) [place] % (Auto) Lymph # (Auto) [place] # (Auto) Baso # (Auto) Seg Neutrophils % Seg Neuts % (Manual) 95.0 H Lymphocytes % (Manual) 3.0 L Seg Neutrophils # Seg Neutrophils # Man 11.4 H Lymphocytes # (Manual) 0.4 L D-Dimer ABG pH POC ABG pCO2 76.2 H POC ABG pO2 52.8 L ABG pO2 ABG HCO3 ABG O2 Saturation ABG Base Excess ABG Hemoglobin 11.7 L ABG Oxyhemoglobin ABG Sodium 132.0 L ABG Potassium ABG Chloride 87.0 L ABG Glucose 118 H Oxyhemoglobin Carboxyhemoglobin Sodium 133 L Potassium Chloride 86.3 L Carbon Dioxide 53 H* BUN Creatinine 0.2 L Glucose 156 H POC Glucose Hemoglobin A1c Lactic Acid Calcium 7.6 L Ferritin Total Bilirubin AST ALT Alkaline Phosphatase Lactate Dehydrogenase C-Reactive Protein Total Protein Albumin Triglycerides Arterial Blood Glucose 118 H Arterial Blood Ionized Calcium 4.2 L Ur Specific [place] Vancomycin Trough Coronavirus (PCR) 12/09/20 12/09/20 12/09/20 05:44 06:40 06:40 WBC 13.5 H RBC 3.28 L Hgb 9.7 L Hct 29.9 L Plt Count Lymph % (Auto) Leslie % (Auto) Lymph # (Auto) [place] # (Auto) Baso # (Auto) Seg Neutrophils % Seg Neuts % (Manual) Lymphocytes % (Manual) Seg Neutrophils # Seg Neutrophils # Man Lymphocytes # (Manual) D-Dimer ABG pH POC ABG pCO2 POC ABG pO2 ABG pO2 ABG HCO3 ABG O2 Saturation ABG Base Excess ABG Hemoglobin ABG Oxyhemoglobin ABG Sodium ABG Potassium ABG Chloride ABG Glucose Oxyhemoglobin Carboxyhemoglobin Sodium 135 L Potassium Chloride 89.5 L Carbon Dioxide 52 H* BUN Creatinine 0.3 L Glucose 114 H POC Glucose 117 H Hemoglobin A1c Lactic Acid Calcium 7.6 L Ferritin Total Bilirubin AST ALT Alkaline Phosphatase Lactate Dehydrogenase C-Reactive Protein Total Protein Albumin Triglycerides Arterial Blood Glucose Arterial Blood Ionized Calcium Ur Specific [place] Vancomycin Trough Coronavirus (PCR) 12/09/20 12/09/20 12/10/20 16:42 21:11 04:28 WBC RBC Hgb Hct Plt Count Lymph % (Auto) Leslie % (Auto) Lymph # (Auto) [place] # (Auto) Baso # (Auto) Seg Neutrophils % Seg Neuts % (Manual) Lymphocytes % (Manual) Seg Neutrophils # Seg Neutrophils # Man Lymphocytes # (Manual) D-Dimer ABG pH POC ABG pCO2 72.5 H 69.4 H 76.9 H POC ABG pO2 50.4 L 80.6 L 60.2 L ABG pO2 ABG HCO3 ABG O2 Saturation ABG Base Excess ABG Hemoglobin 10.4 L 10.7 L 10 L ABG Oxyhemoglobin 84.3 L 89.7 L ABG Sodium 133.7 L 133.7 L 133.8 L ABG Potassium ABG Chloride 90.0 L 91.0 L 91.0 L ABG Glucose 116 H 96 H 57 L Oxyhemoglobin Carboxyhemoglobin 0.4 L Sodium Potassium Chloride Carbon Dioxide BUN Creatinine Glucose POC Glucose Hemoglobin A1c Lactic Acid Calcium Ferritin Total Bilirubin AST ALT Alkaline Phosphatase Lactate Dehydrogenase C-Reactive Protein Total Protein Albumin Triglycerides Arterial Blood Glucose 116 H 96 H 57 L Arterial Blood Ionized Calcium 4.2 L 4.3 L 4.2 L Ur Specific [place] Vancomycin Trough Coronavirus (PCR) 12/10/20 12/10/20 12/10/20 05:09 05:41 11:50 WBC RBC Hgb Hct Plt Count Lymph % (Auto) Leslie % (Auto) Lymph # (Auto) Leslie # (Auto) Baso # (Auto) Seg Neutrophils % Seg Neuts % (Manual) Lymphocytes % (Manual) Seg Neutrophils # Seg Neutrophils # Man Lymphocytes # (Manual) D-Dimer ABG pH POC ABG pCO2 POC ABG pO2 ABG pO2 ABG HCO3 ABG O2 Saturation ABG Base Excess ABG Hemoglobin ABG Oxyhemoglobin ABG Sodium ABG Potassium ABG Chloride ABG Glucose Oxyhemoglobin Carboxyhemoglobin Sodium Potassium Chloride Carbon Dioxide BUN Creatinine Glucose POC Glucose 41 L 138 H 106 H Hemoglobin A1c Lactic Acid Calcium Ferritin Total Bilirubin AST ALT Alkaline Phosphatase Lactate Dehydrogenase C-Reactive Protein Total Protein Albumin Triglycerides Arterial Blood Glucose Arterial Blood Ionized Calcium Ur Specific [place] Vancomycin Trough Coronavirus (PCR) 12/10/20 12/10/20 12/11/20 17:34 23:25 04:06 WBC RBC Hgb Hct Plt Count Lymph % (Auto) Leslie % (Auto) Lymph # (Auto) Leslie # (Auto) Baso # (Auto) Seg Neutrophils % Seg Neuts % (Manual) Lymphocytes % (Manual) Seg Neutrophils # Seg Neutrophils # Man Lymphocytes # (Manual) D-Dimer ABG pH POC ABG pCO2 71.0 H POC ABG pO2 56.8 L ABG pO2 ABG HCO3 ABG O2 Saturation ABG Base Excess ABG Hemoglobin 10.1 L ABG Oxyhemoglobin 88.5 L ABG Sodium 132.3 L ABG Potassium ABG Chloride 91.0 L ABG Glucose 168 H Oxyhemoglobin Carboxyhemoglobin Sodium Potassium Chloride Carbon Dioxide BUN Creatinine Glucose POC Glucose 121 H 167 H Hemoglobin A1c Lactic Acid Calcium Ferritin Total Bilirubin AST ALT Alkaline Phosphatase Lactate Dehydrogenase C-Reactive Protein Total Protein Albumin Triglycerides Arterial Blood Glucose 168 H Arterial Blood Ionized Calcium 4.1 L Ur Specific [place] Vancomycin Trough Coronavirus (PCR) 12/11/20 05:21 WBC RBC Hgb Hct Plt Count Lymph % (Auto) Leslie % (Auto) Lymph # (Auto) [place] # (Auto) Baso # (Auto) Seg Neutrophils % Seg Neuts % (Manual) Lymphocytes % (Manual) Seg Neutrophils # Seg Neutrophils # Man Lymphocytes # (Manual) D-Dimer ABG pH POC ABG pCO2 POC ABG pO2 ABG pO2 ABG HCO3 ABG O2 Saturation ABG Base Excess ABG Hemoglobin ABG Oxyhemoglobin ABG Sodium ABG Potassium ABG Chloride ABG Glucose Oxyhemoglobin Carboxyhemoglobin Sodium Potassium Chloride Carbon Dioxide BUN Creatinine Glucose POC Glucose 149 H Hemoglobin A1c Lactic Acid Calcium Ferritin Total Bilirubin AST ALT Alkaline Phosphatase Lactate Dehydrogenase C-Reactive Protein Total Protein Albumin Triglycerides Arterial Blood Glucose Arterial Blood Ionized Calcium Ur Specific [place] Vancomycin Trough Coronavirus (PCR)
--- NOTE | 2020-12-11 15:13 | Progress Note ---
Assessment and Plan Cultures: SARS CoV-2 PCR: positive Blood culture: No growth 11/21/2020 tracheal aspirate culture: MRSA 12/09/2020 blood culture: Pending 12/09/2020 sputum culture: Gram-negative rods, few WBC A/P: 59-year-old male: #Bilateral pneumonia: secondary to COVID-19. Admission labs showed leukocytosis, D-dimer greater than 10,000, ferritin 672, CRP 19.8, LDH 663, creatinine 0.6, procalcitonin 0.51. Completed 5 days of abx, remdesivir. #GNR on ET aspirate culture: ?colonization v/s true disease, difficult to differentiate. Will treat given development of low-grade temperatures and white count. #Right-sided pneumothorax and pneumomediastinum: Underwent placement of right-sided chest tube, likely secondary to COVID-19. #Acute hypoxic respiratory failure: Failed BiPAP. Remains on the vent. #Elevated d-dimer: DVT scan negative. Unable to get CTA Chest due to patients unstable clinical status #Transaminitis: secondary to COVID-19. Recs: -Started cefepime as per above. -Follow-up finalization of tracheal aspirate culture. -Continue prophylactic anticoagulation based on d-dimer per hospital protocol -guarded prognosis Rm Carrillo MD [facility] O: [phone] F: [phone] Subjective Date of service: 12/11/20 Principal diagnosis: COVID-19 Interval history: Afebrile, sputum cultures with gram-negative rods Objective - Exam Narrative Exam: Physical exam deferred due to PPE conservation strategy. Please refer to primary team's note. - Constitutional Vitals: Vital Signs Temp Pulse Resp BP Pulse Ox 98.4 F 61 20 90/57 95 12/11/20 12:00 12/11/20 14:30 12/11/20 14:30 12/11/20 14:30 12/11/20 14:30 Temperature -Last 24 Hours Temperature 98.4 F Temperature 98.6 F Temperature 99.8 F Temperature 99.1 F Temperature 99.2 F Temperature 100.2 F - Labs CBC & Chem 7: 12/09/20 06:40 12/09/20 06:40 Labs: Abnormal lab results 12/10/20 12/10/20 12/10/20 Range/Units 11:50 17:34 23:25 POC ABG pCO2 (32.0-48.0) mmHg POC ABG pO2 (83-108) mmHg ABG Hemoglobin (12.0-17.5) ABG Oxyhemoglobin (94-98) ABG Sodium (136.0-145.0) mmol/L ABG Chloride (98-107) mmol/L ABG Glucose (65-95) mg/dL POC Glucose 106 H 121 H 167 H (70-105) mg/dL Arterial Blood Glucose (65-95) mg/dL Arterial Blood Ionized Calcium (4.6-5.3) mg/dL 12/11/20 12/11/20 Range/Units 04:06 05:21 POC ABG pCO2 71.0 H (32.0-48.0) mmHg POC ABG pO2 56.8 L (83-108) mmHg ABG Hemoglobin 10.1 L (12.0-17.5) ABG Oxyhemoglobin 88.5 L (94-98) ABG Sodium 132.3 L (136.0-145.0) mmol/L ABG Chloride 91.0 L (98-107) mmol/L ABG Glucose 168 H (65-95) mg/dL POC Glucose 149 H (70-105) mg/dL Arterial Blood Glucose 168 H (65-95) mg/dL Arterial Blood Ionized Calcium 4.1 L (4.6-5.3) mg/dL
[2020-12-11] MEDS: CEFEPIME/NS 2 GM/100 ML 2 GM/100 ML BAG IV SCH (17:17)
[2020-12-11] MEDS: MIDAZOLAM 2 MG/2 ML INJ IV PRN ×2 (18:28→18:54)
[2020-12-11] MEDS: fentaNYL 100 MCG/2 ML INJ IV PRN (18:54)
[2020-12-11] MEDS: MIDAZOLAM 100 MG in SODIUM CHLORIDE 0.9% 80 ML IV SCH (20:18)
[2020-12-11] MEDS: ENOXAPARIN 40 MG/0.4 ML INJ SUB-Q SCH (23:06)
[2020-12-12] MEDS: fentaNYL DRIP Premix 2,000 MCG/100 ML BAG IV SCH ×4 (01:33→22:19)
[2020-12-12] MEDS: CEFEPIME/NS 2 GM/100 ML 2 GM/100 ML BAG IV SCH ×3 (01:34→16:02)
[2020-12-12] MEDS: INSULIN LISPRO 100 UNIT/ML SUB-Q SCH ×5 (01:34→23:42)
[2020-12-12] MEDS: SENNOSIDES/DOCUSATE SODIUM 8.6/50 MG TAB PO SCH ×2 (10:04→21:44)
[2020-12-12] MEDS: FAMOTIDINE 20 MG/2 ML INJ IV SCH ×2 (10:04→21:30)
[2020-12-12] MEDS: methylPREDNISolone Sod Succinate 40 MG/1 ML INJ IV SCH ×2 (10:04→21:29)
--- NOTE | 2020-12-12 10:11 | Progress Note ---
Assessment and Plan 59 y/o male with acute respiratory failure, abnormal CXR and abnormal lab studies. 12/12/20: Long discussion with brother at door. Patient remains full code which is not unreasonable but family is realistic about outcome being poor. Will continue all supportive measures. IF clinical state worsens, will ask family to come back to see patient. Guarded Prognosis. 12/11/20: Will attempt to wean Diprovan off and increase precedex. Tr clarisa were ok. IF we have to support with pressors we will but I have asked nursing to please be detailed in their checkouts as to why they did certain things with the continuous drips. Continue supportive measures. Brother is going to try to come and see him from [place] 12/10/20: No acute events overnight. Patient has had waxing and waning of the amount of oxygen he has required over the last 24-72 hours. I have a bad feeling that he is on the brink of cardiac arrest and this could happen at any moment. I am going to reach out to the brother today to explain to him my concerns. Patient is a full code. Very very guarded prognosis. 12/09/20: Repeat ABG later today. Wean FiO2 for sats >88%. Repeat CXR as well. With BP dropping could be relative adrenal insufficiency, will watch for now, however if pressor requirement increases would consider stress dose steroids and maybe volume replacement. Follow up cultures. Guarded prognosis. 12/08/20: Increase TV to 425. Drop FiO2 to 65% and wean for sats >88%. COntinue chest tubes. Change steroids to 20q12. 12/07/20: CXR is stable, no indication for another chest tube at this time. Will repeat ABG in 1 hour post change to 70% and wean accordingly. Dropping steroids to 20q8. Guarded prognosis. Same weaning parameters apply today as of 12/04/20 12/04/20: Continue to wean steroids to off. Continue to wean FiO2 for sats >88%. Keep PEEP at current level, would not feel comfortable weaning PEEP until FiO2 at 35-40%. Continue chest tubes to suction. PaO2 of >55, pH of >7.2 and sats >88% are acceptable. : Dropped steroids down to 40q8 and will start to wean from there. Continue to slowly wean FiO2 first, keep PEEP at current level. Spoke with Kehinde, please see my event note, who is the biological brother. He had no questions but thanked us for our care. Prognosis remains very very guarded. PaO2 of 55 and pH of >7.2 and sats of >88% are all acceptable. 12/02/20: Wean FiO2 for sats >88% and PaO2 >55. Unable to prone currently secondary to bilateral chest tubes. COntinue high dose steroids. CM To figure out who is the immediate next of kin that can make decisions and then we will discuss the current clinical situation with them. 12/01/20: Continue PEEP and FiO2 elevated to keep sats >88% and PaO2 >55. Small lung volumes and high PEEP. very very guarded prognosis. 11/30/20: Worsening hypoxemia. Chest tubes stable. Likely just worsening disease. Unable to prone now. Increase PEEP to 18 and FiO2 back up to 100. Continue 3 sedatives for RASS of -2. Obtain 12 lead to look at T waves as K was only 4.6 on yesterday. Guarded, guarded prognosis 11/29/20: Second chest tube in on yesterday. CXR is stable. ABG unchanged. Will likely increase PEEP now that chest tubes are in. No further paralytics. Still making good urine. Prognosis remains guarded. Will check chemistry to assess Potassium levels given peaked t's seen on monitor. 11/28/20: Second chest tube today. Once chest tube in, will likely increase PEEP to 18 and repeat gas about 2 hours after this. Continue paralytic today. No proning now that patient will have bilateral chest tubes. VEry guarded prognosis. 11/27/20: Spoke with surgery who have agreed to evaluate and placed chest tube on either right or left side pending CXR reading. Will monitor for 36-48 hours and if no resolution, will need chest tube placed on opposite side as well. Once placed, will likely paralyze again but hold on proning for now. Guarded prognosis. 11/26/20: Paralytics are off. Continue current level of sedation. Will prone for 12 hours today and repeat ABG in the am. Continue lung protective strategy. Guarded prognosis. 11/25/20: Prone again to 16 hours, will prone at 12-12:30. Continue paralytics for 24 more hours. Discussed the idea of permissive hypercapnea again today and as long as pH is above 7.2 no changes should be made to TV and or RR without discussing with physician. Continue to monitor urine output, guarded prognosis. Hold on lasix therapy today. 11/24/20: Prone again today. Will try 48 hours of paralyzing the patient to see if this will help with oxygenation. Will speak with RT's about permissive hypercapnea and that pH's of 7.2 and greater are ok. Continue high doses steroids. Prognosis is still very very guarded. If not improvement with paralytics, will attempt transfer. 11/23/20: Prone again today for 12 hours. Continue High Dose steroids. Hold on lasix given marginal BP's. Prognosis is very very guarded to poor. Will continue all supportive measures. If not able to wean from 100%, will attempt transfer for ECMO. 11/20/20: WIll change to solumedrol 60q6 today. Hold on lasix today. Given his increasing oxygen requirement, will likely end up intubated. OVerall prognosis is very poor. 11/19/20: lasix 40mg IV x1 today. Will speak with ID but may consider increasing steroids to see if this will help with oxygenation. Continue Remdesivir. Prognosis remains guarded. 11/18/20: Continue bipap, goal is to attempt to prevent prolong intubation for as long as possible. Lasix again today. Steroids and Remdesivir. Guarded Prognosis. 11/17/20: Continue bipap therapy. Monitor mental state. High risk for Intubation. Continue BID anticoagulation. Prone if able. BNP was elevated but not grossly elevated. Will still give lasix with hopes of achieving net negative state. STeroids and remdesivir. Overall prognosis is guarded, extremely guarded. 1. Pulm- Agree with concern for covid. Agree with empiric abx but procal is only mildly elevated. Await cultures. Continue bipap therapy for now but will need to monitor closely. [facility] has ordered CTA, but I spoke with pharmacy and we will empirically treat with BID lovenox therapy. COntinue empiric steroid therapy for COVID until studies back. Not sure that he will be able to prone on bipap therapy. Monitor volume status and run as dry as possible. 2. Renal-normal function but all electrolytes abnormal. HYponatremia and Hypochloremia volume up vs volume down. Sent BNP. Would suggest obtaning echo as well. Not sure what to make of elevated lactate unless that is from increased work of breathing or damage to other tissue unknown. May need to lidia ck LFT's and Coags as well. 3. Guarded Prognosis. CCT 31 minutes. Subjective Date of service: 12/12/20 Principal diagnosis: COVID-19 Interval history: NO acute events. Still on 100% FiO2. Brothers are outside the room as we allowed them visit given his current state. Objective Vital Signs - 12hr 12/11/20 12/11/20 12/11/20 22:00 22:30 23:00 Temperature Pulse Rate 83 79 69 Pulse Rate [ From Monitor] Respiratory 22 22 19 Rate Blood Pressure 161/87 161/87 144/80 O2 Sat by Pulse 98 96 94 Oximetry 12/11/20 12/11/20 12/11/20 23:30 23:34 23:40 Temperature 99.8 F H Pulse Rate 69 67 70 Pulse Rate [ From Monitor] Respiratory 17 19 Rate Blood Pressure 135/79 142/86 135/79 O2 Sat by Pulse 97 96 98 Oximetry 12/12/20 12/12/20 12/12/20 00:00 00:30 00:38 Temperature Pulse Rate 66 64 Pulse Rate [ 64 From Monitor] Respiratory 16 15 16 Rate Blood Pressure 112/66 98/64 O2 Sat by Pulse 99 99 99 Oximetry 12/12/20 12/12/20 12/12/20 01:00 01:30 02:00 Temperature Pulse Rate 63 61 62 Pulse Rate [ From Monitor] Respiratory 15 15 16 Rate Blood Pressure 106/64 106/70 111/73 O2 Sat by Pulse 99 99 96 Oximetry 12/12/20 12/12/20 12/12/20 02:30 03:00 03:30 Temperature Pulse Rate 58 L 61 61 Pulse Rate [ From Monitor] Respiratory 15 16 14 Rate Blood Pressure 108/68 110/69 105/69 O2 Sat by Pulse 97 98 97 Oximetry 12/12/20 12/12/20 12/12/20 03:52 04:00 04:30 Temperature 99.9 F H Pulse Rate 62 69 Pulse Rate [ 64 From Monitor] Respiratory 16 15 Rate Blood Pressure 104/66 128/80 O2 Sat by Pulse 99 100 Oximetry 12/12/20 12/12/20 12/12/20 05:00 05:30 06:00 Temperature Pulse Rate 87 87 91 H Pulse Rate [ From Monitor] Respiratory 17 26 H 24 Rate Blood Pressure 158/95 161/90 160/88 O2 Sat by Pulse 98 95 96 Oximetry 12/12/20 12/12/20 12/12/20 06:30 07:00 07:30 Temperature Pulse Rate 87 92 H 97 H Pulse Rate [ From Monitor] Respiratory 25 H 28 H 31 H Rate Blood Pressure 180/87 190/91 157/85 O2 Sat by Pulse 97 97 97 Oximetry 12/12/20 12/12/20 07:55 08:00 Temperature 98 F Pulse Rate 103 H 99 H Pulse Rate [ From Monitor] Respiratory 30 H Rate Blood Pressure 144/90 166/93 O2 Sat by Pulse 97 98 Oximetry Constitutional: other (on vent orally intubated) ENT: other (Now intubated) Ascultation: Bilateral: rales, rhonchi Percussion: Bilateral: not dull Cardiovascular: regular rate and rhythm Gastrointestinal: soft, non-tender Neurologic: other (on vent) CBC and BMP: 12/09/20 06:40 12/09/20 06:40 ABG, PT/INR, D-dimer: ABG ABG pH 7.420 (7.320-7.450) 12/12/20 05:09 POC ABG pCO2 63.1 mmHg (32.0-48.0) H 12/12/20 05:09 ABG pCO2 81.3 mm Hg 12/08/20 04:12 POC ABG pO2 62.6 mmHg (83-108) L 12/12/20 05:09 ABG pO2 69.7 mm Hg (80.0-90.0) L 12/08/20 04:12 POC ABG HCO3 40.0 12/12/20 05:09 ABG O2 Saturation 95.4 % (95.0-99.0) 12/08/20 04:12 PT/INR, D-dimer D-Dimer 926.11 ng/mlDDU (0-234) H 11/26/20 06:04 Abnormal lab findings: Abnormal Labs 11/15/20 11/15/20 11/15/20 10:39 10:39 10:39 WBC 14.3 H RBC 5.17 H Hgb Hct Plt Count Lymph % (Auto) 7.8 L [place] % (Auto) 7.6 H Lymph # (Auto) 1.1 L [place] # (Auto) 1.1 H Baso # (Auto) Seg Neutrophils % 83.3 H Seg Neuts % (Manual) Lymphocytes % (Manual) Seg Neutrophils # 11.9 H Seg Neutrophils # Man Lymphocytes # (Manual) D-Dimer ABG pH POC ABG pCO2 POC ABG pO2 ABG pO2 ABG HCO3 ABG O2 Saturation ABG Base Excess ABG Hemoglobin ABG Oxyhemoglobin ABG Sodium ABG Potassium ABG Chloride ABG Glucose Oxyhemoglobin Carboxyhemoglobin Sodium 128 L Potassium Chloride 96.0 L Carbon Dioxide BUN Creatinine 0.7 L Glucose 238 H POC Glucose Hemoglobin A1c Lactic Acid 4.10 H* Calcium 7.0 L Ferritin Total Bilirubin 1.40 H AST 49 H ALT 70 H Alkaline Phosphatase Lactate Dehydrogenase 663 H C-Reactive Protein 19.80 H Total Protein Albumin 2.9 L Triglycerides Arterial Blood Glucose Arterial Blood Ionized Calcium Ur Specific [place] Vancomycin Trough Coronavirus (PCR) 11/15/20 11/15/20 11/15/20 10:39 10:39 11:20 WBC RBC Hgb Hct Plt Count Lymph % (Auto) [place] % (Auto) Lymph # (Auto) [place] # (Auto) Baso # (Auto) Seg Neutrophils % Seg Neuts % (Manual) Lymphocytes % (Manual) Seg Neutrophils # Seg Neutrophils # Man Lymphocytes # (Manual) D-Dimer > 76877 H ABG pH POC ABG pCO2 29.9 L POC ABG pO2 137.3 H ABG pO2 ABG HCO3 ABG O2 Saturation ABG Base Excess ABG Hemoglobin ABG Oxyhemoglobin ABG Sodium 126.5 L ABG Potassium ABG Chloride ABG Glucose 248 H Oxyhemoglobin Carboxyhemoglobin Sodium Potassium Chloride Carbon Dioxide BUN Creatinine Glucose POC Glucose Hemoglobin A1c Lactic Acid Calcium Ferritin 672.8 H Total Bilirubin AST ALT Alkaline Phosphatase Lactate Dehydrogenase C-Reactive Protein Total Protein Albumin Triglycerides Arterial Blood Glucose 248 H Arterial Blood Ionized Calcium 4.1 L Ur Specific [place] Vancomycin Trough Coronavirus (PCR) 11/15/20 11/15/20 11/16/20 13:41 23:41 01:45 WBC RBC Hgb Hct Plt Count Lymph % (Auto) [place] % (Auto) Lymph # (Auto) [place] # (Auto) Baso # (Auto) Seg Neutrophils % Seg Neuts % (Manual) Lymphocytes % (Manual) Seg Neutrophils # Seg Neutrophils # Man Lymphocytes # (Manual) D-Dimer ABG pH POC ABG pCO2 POC ABG pO2 ABG pO2 ABG HCO3 ABG O2 Saturation ABG Base Excess ABG Hemoglobin ABG Oxyhemoglobin ABG Sodium ABG Potassium ABG Chloride ABG Glucose Oxyhemoglobin Carboxyhemoglobin Sodium Potassium Chloride Carbon Dioxide BUN Creatinine Glucose POC Glucose 284 H Hemoglobin A1c Lactic Acid 2.30 H* Calcium Ferritin Total Bilirubin AST ALT Alkaline Phosphatase Lactate Dehydrogenase C-Reactive Protein Total Protein Albumin Triglycerides Arterial Blood Glucose Arterial Blood Ionized Calcium Ur Specific [place] 1.037 H Vancomycin Trough Coronavirus (PCR) 11/16/20 11/16/20 11/16/20 05:29 05:29 05:29 WBC 12.9 H RBC Hgb Hct Plt Count Lymph % (Auto) 4.5 L [place] % (Auto) Lymph # (Auto) 0.6 L [place] # (Auto) Baso # (Auto) 0.2 H Seg Neutrophils % 89.8 H Seg Neuts % (Manual) Lymphocytes % (Manual) Seg Neutrophils # 11.5 H Seg Neutrophils # Man Lymphocytes # (Manual) D-Dimer ABG pH POC ABG pCO2 POC ABG pO2 ABG pO2 ABG HCO3 ABG O2 Saturation ABG Base Excess ABG Hemoglobin ABG Oxyhemoglobin ABG Sodium ABG Potassium ABG Chloride ABG Glucose Oxyhemoglobin Carboxyhemoglobin Sodium 131 L Potassium Chloride Carbon Dioxide 21 L BUN 23 H Creatinine 0.6 L Glucose 342 H POC Glucose Hemoglobin A1c Lactic Acid 2.60 H* Calcium 7.0 L Ferritin Total Bilirubin AST ALT Alkaline Phosphatase Lactate Dehydrogenase C-Reactive Protein Total Protein Albumin 2.4 L Triglycerides Arterial Blood Glucose Arterial Blood Ionized Calcium Ur Specific [place] Vancomycin Trough Coronavirus (PCR) 11/16/20 11/16/20 11/16/20 05:29 08:11 12:11 WBC RBC Hgb Hct Plt Count Lymph % (Auto) [place] % (Auto) Lymph # (Auto) [place] # (Auto) Baso # (Auto) Seg Neutrophils % Seg Neuts % (Manual) Lymphocytes % (Manual) Seg Neutrophils # Seg Neutrophils # Man Lymphocytes # (Manual) D-Dimer ABG pH POC ABG pCO2 POC ABG pO2 ABG pO2 ABG HCO3 ABG O2 Saturation ABG Base Excess ABG Hemoglobin ABG Oxyhemoglobin ABG Sodium ABG Potassium ABG Chloride ABG Glucose Oxyhemoglobin Carboxyhemoglobin Sodium Potassium Chloride Carbon Dioxide BUN Creatinine Glucose POC Glucose 329 H 320 H Hemoglobin A1c 11.7 H Lactic Acid Calcium Ferritin Total Bilirubin AST ALT Alkaline Phosphatase Lactate Dehydrogenase C-Reactive Protein Total Protein Albumin Triglycerides Arterial Blood Glucose Arterial Blood Ionized Calcium Ur Specific [place] Vancomycin Trough Coronavirus (PCR) 11/16/20 11/16/20 11/16/20 16:13 21:29 Unknown WBC RBC Hgb Hct Plt Count Lymph % (Auto) [place] % (Auto) Lymph # (Auto) [place] # (Auto) Baso # (Auto) Seg Neutrophils % Seg Neuts % (Manual) Lymphocytes % (Manual) Seg Neutrophils # Seg Neutrophils # Man Lymphocytes # (Manual) D-Dimer ABG pH POC ABG pCO2 POC ABG pO2 ABG pO2 ABG HCO3 ABG O2 Saturation ABG Base Excess ABG Hemoglobin ABG Oxyhemoglobin ABG Sodium ABG Potassium ABG Chloride ABG Glucose Oxyhemoglobin Carboxyhemoglobin Sodium Potassium Chloride Carbon Dioxide BUN Creatinine Glucose POC Glucose 257 H 376 H Hemoglobin A1c Lactic Acid Calcium Ferritin Total Bilirubin AST ALT Alkaline Phosphatase Lactate Dehydrogenase C-Reactive Protein Total Protein Albumin Triglycerides Arterial Blood Glucose Arterial Blood Ionized Calcium Ur Specific [place] Vancomycin Trough Coronavirus (PCR) Positive A 11/17/20 11/17/20 11/17/20 07:42 12:07 17:25 WBC RBC Hgb Hct Plt Count Lymph % (Auto) [place] % (Auto) Lymph # (Auto) [place] # (Auto) Baso # (Auto) Seg Neutrophils % Seg Neuts % (Manual) Lymphocytes % (Manual) Seg Neutrophils # Seg Neutrophils # Man Lymphocytes # (Manual) D-Dimer ABG pH POC ABG pCO2 POC ABG pO2 ABG pO2 ABG HCO3 ABG O2 Saturation ABG Base Excess ABG Hemoglobin ABG Oxyhemoglobin ABG Sodium ABG Potassium ABG Chloride ABG Glucose Oxyhemoglobin Carboxyhemoglobin Sodium Potassium Chloride Carbon Dioxide BUN Creatinine Glucose POC Glucose 231 H 380 H 302 H Hemoglobin A1c Lactic Acid Calcium Ferritin Total Bilirubin AST ALT Alkaline Phosphatase Lactate Dehydrogenase C-Reactive Protein Total Protein Albumin Triglycerides Arterial Blood Glucose Arterial Blood Ionized Calcium Ur Specific [place] Vancomycin Trough Coronavirus (PCR) 11/17/20 11/18/20 11/18/20 21:53 04:25 07:45 WBC RBC Hgb Hct Plt Count Lymph % (Auto) [place] % (Auto) Lymph # (Auto) [place] # (Auto) Baso # (Auto) Seg Neutrophils % Seg Neuts % (Manual) Lymphocytes % (Manual) Seg Neutrophils # Seg Neutrophils # Man Lymphocytes # (Manual) D-Dimer ABG pH POC ABG pCO2 POC ABG pO2 ABG pO2 ABG HCO3 ABG O2 Saturation ABG Base Excess ABG Hemoglobin ABG Oxyhemoglobin ABG Sodium ABG Potassium ABG Chloride ABG Glucose Oxyhemoglobin Carboxyhemoglobin Sodium 136 L Potassium Chloride Carbon Dioxide BUN 24 H Creatinine 0.6 L Glucose 212 H POC Glucose 293 H 216 H Hemoglobin A1c Lactic Acid Calcium 7.4 L Ferritin Total Bilirubin AST 41 H ALT Alkaline Phosphatase 142 H Lactate Dehydrogenase C-Reactive Protein Total Protein Albumin 2.3 L Triglycerides Arterial Blood Glucose Arterial Blood Ionized Calcium Ur Specific [place] Vancomycin Trough Coronavirus (PCR) 11/18/20 11/18/20 11/18/20 12:28 15:58 21:37 WBC RBC Hgb Hct Plt Count Lymph % (Auto) [place] % (Auto) Lymph # (Auto) [place] # (Auto) Baso # (Auto) Seg Neutrophils % Seg Neuts % (Manual) Lymphocytes % (Manual) Seg Neutrophils # Seg Neutrophils # Man Lymphocytes # (Manual) D-Dimer ABG pH POC ABG pCO2 POC ABG pO2 ABG pO2 ABG HCO3 ABG O2 Saturation ABG Base Excess ABG Hemoglobin ABG Oxyhemoglobin ABG Sodium ABG Potassium ABG Chloride ABG Glucose Oxyhemoglobin Carboxyhemoglobin Sodium Potassium Chloride Carbon Dioxide BUN Creatinine Glucose POC Glucose 165 H 220 H 311 H Hemoglobin A1c Lactic Acid Calcium Ferritin Total Bilirubin AST ALT Alkaline Phosphatase Lactate Dehydrogenase C-Reactive Protein Total Protein Albumin Triglycerides Arterial Blood Glucose Arterial Blood Ionized Calcium Ur Specific [place] Vancomycin Trough Coronavirus (PCR) 11/19/20 11/19/20 11/19/20 05:35 07:40 12:39 WBC RBC Hgb Hct Plt Count Lymph % (Auto) [place] % (Auto) Lymph # (Auto) [place] # (Auto) Baso # (Auto) Seg Neutrophils % Seg Neuts % (Manual) Lymphocytes % (Manual) Seg Neutrophils # Seg Neutrophils # Man Lymphocytes # (Manual) D-Dimer ABG pH POC ABG pCO2 POC ABG pO2 ABG pO2 ABG HCO3 ABG O2 Saturation ABG Base Excess ABG Hemoglobin ABG Oxyhemoglobin ABG Sodium ABG Potassium ABG Chloride ABG Glucose Oxyhemoglobin Carboxyhemoglobin Sodium 132 L Potassium Chloride Carbon Dioxide BUN 25 H Creatinine 0.5 L Glucose 179 H POC Glucose 149 H 306 H Hemoglobin A1c Lactic Acid Calcium 7.5 L Ferritin Total Bilirubin AST ALT Alkaline Phosphatase 139 H Lactate Dehydrogenase C-Reactive Protein Total Protein Albumin 2.4 L Triglycerides Arterial Blood Glucose Arterial Blood Ionized Calcium Ur Specific [place] Vancomycin Trough Coronavirus (PCR) 11/19/20 11/19/20 11/20/20 16:17 21:25 08:30 WBC RBC Hgb Hct Plt Count Lymph % (Auto) [place] % (Auto) Lymph # (Auto) [place] # (Auto) Baso # (Auto) Seg Neutrophils % Seg Neuts % (Manual) Lymphocytes % (Manual) Seg Neutrophils # Seg Neutrophils # Man Lymphocytes # (Manual) D-Dimer ABG pH POC ABG pCO2 POC ABG pO2 ABG pO2 ABG HCO3 ABG O2 Saturation ABG Base Excess ABG Hemoglobin ABG Oxyhemoglobin ABG Sodium ABG Potassium ABG Chloride ABG Glucose Oxyhemoglobin Carboxyhemoglobin Sodium Potassium Chloride Carbon Dioxide BUN Creatinine Glucose POC Glucose 364 H 347 H 141 H Hemoglobin A1c Lactic Acid Calcium Ferritin Total Bilirubin AST ALT Alkaline Phosphatase Lactate Dehydrogenase C-Reactive Protein Total Protein Albumin Triglycerides Arterial Blood Glucose Arterial Blood Ionized Calcium Ur Specific [place] Vancomycin Trough Coronavirus (PCR) 11/20/20 11/20/20 11/20/20 08:50 11:32 16:19 WBC RBC Hgb Hct Plt Count Lymph % (Auto) [place] % (Auto) Lymph # (Auto) [place] # (Auto) Baso # (Auto) Seg Neutrophils % Seg Neuts % (Manual) Lymphocytes % (Manual) Seg Neutrophils # Seg Neutrophils # Man Lymphocytes # (Manual) D-Dimer ABG pH POC ABG pCO2 POC ABG pO2 ABG pO2 ABG HCO3 ABG O2 Saturation ABG Base Excess ABG Hemoglobin ABG Oxyhemoglobin ABG Sodium ABG Potassium ABG Chloride ABG Glucose Oxyhemoglobin Carboxyhemoglobin Sodium 132 L Potassium Chloride 97.6 L Carbon Dioxide BUN 26 H Creatinine 0.5 L Glucose 201 H POC Glucose 296 H 327 H Hemoglobin A1c Lactic Acid Calcium 7.9 L Ferritin Total Bilirubin AST ALT Alkaline Phosphatase 137 H Lactate Dehydrogenase C-Reactive Protein Total Protein Albumin 2.6 L Triglycerides Arterial Blood Glucose Arterial Blood Ionized Calcium Ur Specific [place] Vancomycin Trough Coronavirus (PCR) 11/20/20 11/21/20 11/21/20 22:09 07:59 13:51 WBC RBC Hgb Hct Plt Count Lymph % (Auto) [place] % (Auto) Lymph # (Auto) [place] # (Auto) Baso # (Auto) Seg Neutrophils % Seg Neuts % (Manual) Lymphocytes % (Manual) Seg Neutrophils # Seg Neutrophils # Man Lymphocytes # (Manual) D-Dimer ABG pH POC ABG pCO2 POC ABG pO2 ABG pO2 ABG HCO3 ABG O2 Saturation ABG Base Excess ABG Hemoglobin ABG Oxyhemoglobin ABG Sodium ABG Potassium ABG Chloride ABG Glucose Oxyhemoglobin Carboxyhemoglobin Sodium Potassium Chloride Carbon Dioxide BUN Creatinine Glucose POC Glucose 311 H 218 H 304 H Hemoglobin A1c Lactic Acid Calcium Ferritin Total Bilirubin AST ALT Alkaline Phosphatase Lactate Dehydrogenase C-Reactive Protein Total Protein Albumin Triglycerides Arterial Blood Glucose Arterial Blood Ionized Calcium Ur Specific [place] Vancomycin Trough Coronavirus (PCR) 11/21/20 11/21/20 11/21/20 16:09 21:34 23:00 WBC RBC Hgb Hct Plt Count Lymph % (Auto) [place] % (Auto) Lymph # (Auto) [place] # (Auto) Baso # (Auto) Seg Neutrophils % Seg Neuts % (Manual) Lymphocytes % (Manual) Seg Neutrophils # Seg Neutrophils # Man Lymphocytes # (Manual) D-Dimer ABG pH 7.206 L POC ABG pCO2 59.3 H POC ABG pO2 76.7 L ABG pO2 ABG HCO3 ABG O2 Saturation ABG Base Excess ABG Hemoglobin ABG Oxyhemoglobin ABG Sodium 133.1 L ABG Potassium ABG Chloride ABG Glucose 320 H Oxyhemoglobin Carboxyhemoglobin Sodium Potassium Chloride Carbon Dioxide BUN Creatinine Glucose POC Glucose 239 H 279 H Hemoglobin A1c Lactic Acid Calcium Ferritin Total Bilirubin AST ALT Alkaline Phosphatase Lactate Dehydrogenase C-Reactive Protein Total Protein Albumin Triglycerides Arterial Blood Glucose 320 H Arterial Blood Ionized Calcium Ur Specific [place] Vancomycin Trough Coronavirus (PCR) 11/22/20 11/22/20 11/22/20 04:52 04:52 04:52 WBC RBC Hgb Hct Plt Count Lymph % (Auto) [place] % (Auto) Lymph # (Auto) [place] # (Auto) Baso # (Auto) Seg Neutrophils % Seg Neuts % (Manual) Lymphocytes % (Manual) Seg Neutrophils # Seg Neutrophils # Man Lymphocytes # (Manual) D-Dimer 1858.36 H ABG pH POC ABG pCO2 POC ABG pO2 ABG pO2 ABG HCO3 ABG O2 Saturation ABG Base Excess ABG Hemoglobin ABG Oxyhemoglobin ABG Sodium ABG Potassium ABG Chloride ABG Glucose Oxyhemoglobin Carboxyhemoglobin Sodium Potassium Chloride Carbon Dioxide BUN Creatinine Glucose POC Glucose Hemoglobin A1c Lactic Acid Calcium Ferritin 734.2 H Total Bilirubin AST ALT Alkaline Phosphatase Lactate Dehydrogenase 404 H C-Reactive Protein 2.80 H Total Protein Albumin Triglycerides Arterial Blood Glucose Arterial Blood Ionized Calcium Ur Specific [place] Vancomycin Trough Coronavirus (PCR) 11/22/20 11/22/20 11/22/20 05:12 05:39 11:50 WBC RBC Hgb Hct Plt Count Lymph % (Auto) [place] % (Auto) Lymph # (Auto) [place] # (Auto) Baso # (Auto) Seg Neutrophils % Seg Neuts % (Manual) Lymphocytes % (Manual) Seg Neutrophils # Seg Neutrophils # Man Lymphocytes # (Manual) D-Dimer ABG pH POC ABG pCO2 POC ABG pO2 51.0 L ABG pO2 ABG HCO3 ABG O2 Saturation ABG Base Excess ABG Hemoglobin ABG Oxyhemoglobin ABG Sodium 131.2 L ABG Potassium 4.6 H ABG Chloride ABG Glucose 317 H Oxyhemoglobin Carboxyhemoglobin Sodium Potassium Chloride Carbon Dioxide BUN Creatinine Glucose POC Glucose 340 H 417 H Hemoglobin A1c Lactic Acid Calcium Ferritin Total Bilirubin AST ALT Alkaline Phosphatase Lactate Dehydrogenase C-Reactive Protein Total Protein Albumin Triglycerides Arterial Blood Glucose 317 H Arterial Blood Ionized Calcium 4.4 L Ur Specific [place] Vancomycin Trough Coronavirus (PCR) 11/22/20 11/22/20 11/22/20 12:22 12:22 17:10 WBC 14.4 H RBC Hgb Hct Plt Count Lymph % (Auto) [place] % (Auto) Lymph # (Auto) [place] # (Auto) Baso # (Auto) Seg Neutrophils % Seg Neuts % (Manual) 98.0 H Lymphocytes % (Manual) Seg Neutrophils # Seg Neutrophils # Man 14.1 H Lymphocytes # (Manual) 0.0 L D-Dimer ABG pH POC ABG pCO2 POC ABG pO2 ABG pO2 ABG HCO3 ABG O2 Saturation ABG Base Excess ABG Hemoglobin ABG Oxyhemoglobin ABG Sodium ABG Potassium ABG Chloride ABG Glucose Oxyhemoglobin Carboxyhemoglobin Sodium 132 L Potassium Chloride Carbon Dioxide BUN 36 H Creatinine 0.6 L Glucose 219 H POC Glucose 157 H Hemoglobin A1c Lactic Acid Calcium 7.2 L Ferritin Total Bilirubin AST ALT Alkaline Phosphatase Lactate Dehydrogenase C-Reactive Protein Total Protein Albumin Triglycerides Arterial Blood Glucose Arterial Blood Ionized Calcium Ur Specific [place] Vancomycin Trough Coronavirus (PCR) 11/22/20 11/22/20 11/22/20 18:33 21:44 23:47 WBC RBC Hgb Hct Plt Count Lymph % (Auto) [place] % (Auto) Lymph # (Auto) [place] # (Auto) Baso # (Auto) Seg Neutrophils % Seg Neuts % (Manual) Lymphocytes % (Manual) Seg Neutrophils # Seg Neutrophils # Man Lymphocytes # (Manual) D-Dimer ABG pH POC ABG pCO2 POC ABG pO2 60.8 L ABG pO2 ABG HCO3 ABG O2 Saturation ABG Base Excess ABG Hemoglobin ABG Oxyhemoglobin 88.1 L ABG Sodium 135.1 L ABG Potassium ABG Chloride ABG Glucose 141 H Oxyhemoglobin Carboxyhemoglobin Sodium Potassium Chloride Carbon Dioxide BUN Creatinine Glucose POC Glucose 117 H 123 H Hemoglobin A1c Lactic Acid Calcium Ferritin Total Bilirubin AST ALT Alkaline Phosphatase Lactate Dehydrogenase C-Reactive Protein Total Protein Albumin Triglycerides Arterial Blood Glucose 141 H Arterial Blood Ionized Calcium Ur Specific [place] Vancomycin Trough Coronavirus (PCR) 11/23/20 11/23/20 11/23/20 04:00 04:00 05:23 WBC 14.4 H RBC Hgb Hct Plt Count Lymph % (Auto) [place] % (Auto) Lymph # (Auto) [place] # (Auto) Baso # (Auto) Seg Neutrophils % Seg Neuts % (Manual) Lymphocytes % (Manual) Seg Neutrophils # Seg Neutrophils # Man Lymphocytes # (Manual) D-Dimer ABG pH POC ABG pCO2 POC ABG pO2 ABG pO2 ABG HCO3 ABG O2 Saturation ABG Base Excess ABG Hemoglobin ABG Oxyhemoglobin ABG Sodium ABG Potassium ABG Chloride ABG Glucose Oxyhemoglobin Carboxyhemoglobin Sodium 136 L Potassium Chloride Carbon Dioxide BUN 33 H Creatinine 0.6 L Glucose 115 H POC Glucose 173 H Hemoglobin A1c Lactic Acid Calcium 7.1 L Ferritin Total Bilirubin AST 64 H ALT 75 H Alkaline Phosphatase Lactate Dehydrogenase C-Reactive Protein Total Protein 5.9 L D Albumin 2.4 L Triglycerides Arterial Blood Glucose Arterial Blood Ionized Calcium Ur Specific [place] Vancomycin Trough Coronavirus (PCR) 11/23/20 11/23/20 11/23/20 05:40 11:27 17:10 WBC RBC Hgb Hct Plt Count Lymph % (Auto) [place] % (Auto) Lymph # (Auto) [place] # (Auto) Baso # (Auto) Seg Neutrophils % Seg Neuts % (Manual) Lymphocytes % (Manual) Seg Neutrophils # Seg Neutrophils # Man Lymphocytes # (Manual) D-Dimer ABG pH POC ABG pCO2 POC ABG pO2 56.5 L ABG pO2 ABG HCO3 ABG O2 Saturation ABG Base Excess ABG Hemoglobin ABG Oxyhemoglobin ABG Sodium ABG Potassium ABG Chloride 109.0 H ABG Glucose 114 H Oxyhemoglobin Carboxyhemoglobin Sodium Potassium Chloride Carbon Dioxide BUN Creatinine Glucose POC Glucose 114 H 136 H Hemoglobin A1c Lactic Acid Calcium Ferritin Total Bilirubin AST ALT Alkaline Phosphatase Lactate Dehydrogenase C-Reactive Protein Total Protein Albumin Triglycerides Arterial Blood Glucose 114 H Arterial Blood Ionized Calcium 4.5 L Ur Specific [place] Vancomycin Trough Coronavirus (PCR) 11/24/20 11/24/20 11/24/20 05:14 05:14 05:14 WBC RBC Hgb Hct Plt Count Lymph % (Auto) [place] % (Auto) Lymph # (Auto) [place] # (Auto) Baso # (Auto) Seg Neutrophils % Seg Neuts % (Manual) Lymphocytes % (Manual) Seg Neutrophils # Seg Neutrophils # Man Lymphocytes # (Manual) D-Dimer 1433.39 H ABG pH POC ABG pCO2 POC ABG pO2 ABG pO2 ABG HCO3 ABG O2 Saturation ABG Base Excess ABG Hemoglobin ABG Oxyhemoglobin ABG Sodium ABG Potassium ABG Chloride ABG Glucose Oxyhemoglobin Carboxyhemoglobin Sodium Potassium Chloride Carbon Dioxide BUN Creatinine Glucose POC Glucose Hemoglobin A1c Lactic Acid Calcium Ferritin 997.5 H Total Bilirubin AST ALT Alkaline Phosphatase Lactate Dehydrogenase 463 H C-Reactive Protein Total Protein Albumin Triglycerides Arterial Blood Glucose Arterial Blood Ionized Calcium Ur Specific [place] Vancomycin Trough Coronavirus (PCR) 11/24/20 11/24/20 11/24/20 05:31 05:36 12:05 WBC RBC Hgb Hct Plt Count Lymph % (Auto) [place] % (Auto) Lymph # (Auto) [place] # (Auto) Baso # (Auto) Seg Neutrophils % Seg Neuts % (Manual) Lymphocytes % (Manual) Seg Neutrophils # Seg Neutrophils # Man Lymphocytes # (Manual) D-Dimer ABG pH POC ABG pCO2 POC ABG pO2 57.2 L ABG pO2 ABG HCO3 ABG O2 Saturation ABG Base Excess ABG Hemoglobin ABG Oxyhemoglobin ABG Sodium ABG Potassium ABG Chloride ABG Glucose 180 H Oxyhemoglobin Carboxyhemoglobin Sodium Potassium Chloride Carbon Dioxide BUN Creatinine Glucose POC Glucose 199 H 143 H Hemoglobin A1c Lactic Acid Calcium Ferritin Total Bilirubin AST ALT Alkaline Phosphatase Lactate Dehydrogenase C-Reactive Protein Total Protein Albumin Triglycerides Arterial Blood Glucose 180 H Arterial Blood Ionized Calcium 4.5 L Ur Specific [place] Vancomycin Trough Coronavirus (PCR) 11/24/20 11/24/20 11/24/20 12:14 17:47 23:47 WBC RBC Hgb Hct Plt Count Lymph % (Auto) [place] % (Auto) Lymph # (Auto) [place] # (Auto) Baso # (Auto) Seg Neutrophils % Seg Neuts % (Manual) Lymphocytes % (Manual) Seg Neutrophils # Seg Neutrophils # Man Lymphocytes # (Manual) D-Dimer ABG pH 7.261 L POC ABG pCO2 59.7 H POC ABG pO2 75.7 L ABG pO2 ABG HCO3 ABG O2 Saturation ABG Base Excess ABG Hemoglobin ABG Oxyhemoglobin 92.5 L ABG Sodium ABG Potassium ABG Chloride 108.0 H ABG Glucose 150 H Oxyhemoglobin Carboxyhemoglobin Sodium Potassium Chloride Carbon Dioxide BUN Creatinine Glucose POC Glucose 223 H 179 H Hemoglobin A1c Lactic Acid Calcium Ferritin Total Bilirubin AST ALT Alkaline Phosphatase Lactate Dehydrogenase C-Reactive Protein Total Protein Albumin Triglycerides Arterial Blood Glucose 150 H Arterial Blood Ionized Calcium Ur Specific [place] Vancomycin Trough Coronavirus (PCR) 11/25/20 11/25/20 11/25/20 03:29 05:07 05:15 WBC 13.9 H RBC Hgb Hct Plt Count Lymph % (Auto) [place] % (Auto) Lymph # (Auto) [place] # (Auto) Baso # (Auto) Seg Neutrophils % Seg Neuts % (Manual) 97.0 H Lymphocytes % (Manual) Seg Neutrophils # Seg Neutrophils # Man 13.5 H Lymphocytes # (Manual) 0.0 L D-Dimer ABG pH 7.272 L POC ABG pCO2 69.0 H POC ABG pO2 132.9 H ABG pO2 ABG HCO3 ABG O2 Saturation ABG Base Excess ABG Hemoglobin ABG Oxyhemoglobin ABG Sodium ABG Potassium ABG Chloride ABG Glucose 174 H Oxyhemoglobin Carboxyhemoglobin Sodium Potassium Chloride Carbon Dioxide BUN Creatinine Glucose POC Glucose 168 H Hemoglobin A1c Lactic Acid Calcium Ferritin Total Bilirubin AST ALT Alkaline Phosphatase Lactate Dehydrogenase C-Reactive Protein Total Protein Albumin Triglycerides Arterial Blood Glucose 174 H Arterial Blood Ionized Calcium Ur Specific [place] Vancomycin Trough Coronavirus (PCR) 11/25/20 11/25/20 11/25/20 05:15 11:25 17:35 WBC RBC Hgb Hct Plt Count Lymph % (Auto) [place] % (Auto) Lymph # (Auto) [place] # (Auto) Baso # (Auto) Seg Neutrophils % Seg Neuts % (Manual) Lymphocytes % (Manual) Seg Neutrophils # Seg Neutrophils # Man Lymphocytes # (Manual) D-Dimer ABG pH POC ABG pCO2 POC ABG pO2 ABG pO2 ABG HCO3 ABG O2 Saturation ABG Base Excess ABG Hemoglobin ABG Oxyhemoglobin ABG Sodium ABG Potassium ABG Chloride ABG Glucose Oxyhemoglobin Carboxyhemoglobin Sodium Potassium Chloride Carbon Dioxide BUN 29 H Creatinine 0.5 L Glucose 161 H POC Glucose 224 H 228 H Hemoglobin A1c Lactic Acid Calcium 7.8 L Ferritin Total Bilirubin AST 89 H ALT 129 H Alkaline Phosphatase Lactate Dehydrogenase C-Reactive Protein Total Protein 5.8 L Albumin 2.5 L Triglycerides Arterial Blood Glucose Arterial Blood Ionized Calcium Ur Specific [place] Vancomycin Trough Coronavirus (PCR) 11/25/20 11/25/20 11/26/20 20:45 23:28 04:00 WBC RBC Hgb Hct Plt Count Lymph % (Auto) [place] % (Auto) Lymph # (Auto) [place] # (Auto) Baso # (Auto) Seg Neutrophils % Seg Neuts % (Manual) Lymphocytes % (Manual) Seg Neutrophils # Seg Neutrophils # Man Lymphocytes # (Manual) D-Dimer ABG pH POC ABG pCO2 POC ABG pO2 ABG pO2 ABG HCO3 ABG O2 Saturation ABG Base Excess ABG Hemoglobin ABG Oxyhemoglobin ABG Sodium ABG Potassium ABG Chloride ABG Glucose Oxyhemoglobin Carboxyhemoglobin Sodium Potassium Chloride Carbon Dioxide BUN Creatinine Glucose POC Glucose 177 H 243 H Hemoglobin A1c Lactic Acid Calcium Ferritin 778.8 H Total Bilirubin AST ALT Alkaline Phosphatase Lactate Dehydrogenase C-Reactive Protein Total Protein Albumin Triglycerides Arterial Blood Glucose Arterial Blood Ionized Calcium Ur Specific [place] Vancomycin Trough Coronavirus (PCR) 11/26/20 11/26/20 11/26/20 04:00 05:34 06:04 WBC RBC Hgb Hct Plt Count Lymph % (Auto) [place] % (Auto) Lymph # (Auto) [place] # (Auto) Baso # (Auto) Seg Neutrophils % Seg Neuts % (Manual) Lymphocytes % (Manual) Seg Neutrophils # Seg Neutrophils # Man Lymphocytes # (Manual) D-Dimer 926.11 H ABG pH POC ABG pCO2 POC ABG pO2 ABG pO2 ABG HCO3 ABG O2 Saturation ABG Base Excess ABG Hemoglobin ABG Oxyhemoglobin ABG Sodium ABG Potassium ABG Chloride ABG Glucose Oxyhemoglobin Carboxyhemoglobin Sodium Potassium Chloride Carbon Dioxide 39 H D BUN 30 H Creatinine 0.5 L Glucose 193 H POC Glucose 178 H Hemoglobin A1c Lactic Acid Calcium 7.7 L Ferritin Total Bilirubin AST 65 H ALT 132 H Alkaline Phosphatase Lactate Dehydrogenase 288 H C-Reactive Protein 1.40 H Total Protein 5.7 L Albumin 2.4 L Triglycerides Arterial Blood Glucose Arterial Blood Ionized Calcium Ur Specific [place] Vancomycin Trough Coronavirus (PCR) 11/26/20 11/26/20 11/26/20 06:04 08:47 11:20 WBC 12.4 H RBC Hgb Hct Plt Count Lymph % (Auto) [place] % (Auto) Lymph # (Auto) [place] # (Auto) Baso # (Auto) Seg Neutrophils % Seg Neuts % (Manual) 98.0 H Lymphocytes % (Manual) 1.0 L Seg Neutrophils # Seg Neutrophils # Man 12.2 H Lymphocytes # (Manual) 0.1 L D-Dimer ABG pH POC ABG pCO2 75.2 H POC ABG pO2 61.9 L ABG pO2 ABG HCO3 ABG O2 Saturation ABG Base Excess ABG Hemoglobin ABG Oxyhemoglobin 90.3 L ABG Sodium ABG Potassium ABG Chloride ABG Glucose 243 H Oxyhemoglobin Carboxyhemoglobin Sodium Potassium Chloride Carbon Dioxide BUN Creatinine Glucose POC Glucose 255 H Hemoglobin A1c Lactic Acid Calcium Ferritin Total Bilirubin AST ALT Alkaline Phosphatase Lactate Dehydrogenase C-Reactive Protein Total Protein Albumin Triglycerides Arterial Blood Glucose 243 H Arterial Blood Ionized Calcium Ur Specific [place] Vancomycin Trough Coronavirus (PCR) 11/26/20 11/26/20 11/26/20 16:20 17:15 23:41 WBC RBC Hgb Hct Plt Count Lymph % (Auto) [place] % (Auto) Lymph # (Auto) [place] # (Auto) Baso # (Auto) Seg Neutrophils % Seg Neuts % (Manual) Lymphocytes % (Manual) Seg Neutrophils # Seg Neutrophils # Man Lymphocytes # (Manual) D-Dimer ABG pH POC ABG pCO2 66.6 H POC ABG pO2 78.1 L ABG pO2 ABG HCO3 ABG O2 Saturation ABG Base Excess ABG Hemoglobin ABG Oxyhemoglobin ABG Sodium ABG Potassium ABG Chloride ABG Glucose 244 H Oxyhemoglobin Carboxyhemoglobin Sodium Potassium Chloride Carbon Dioxide BUN Creatinine Glucose POC Glucose 219 H 210 H Hemoglobin A1c Lactic Acid Calcium Ferritin Total Bilirubin AST ALT Alkaline Phosphatase Lactate Dehydrogenase C-Reactive Protein Total Protein Albumin Triglycerides Arterial Blood Glucose 244 H Arterial Blood Ionized Calcium Ur Specific [place] Vancomycin Trough Coronavirus (PCR) 11/27/20 11/27/20 11/27/20 04:46 05:38 06:25 WBC 13.8 H RBC Hgb Hct Plt Count Lymph % (Auto) 2.0 L [place] % (Auto) Lymph # (Auto) 0.3 L [place] # (Auto) Baso # (Auto) Seg Neutrophils % Seg Neuts % (Manual) 96.0 H Lymphocytes % (Manual) Seg Neutrophils # 12.7 H Seg Neutrophils # Man 13.2 H Lymphocytes # (Manual) 0.0 L D-Dimer ABG pH POC ABG pCO2 63.0 H POC ABG pO2 53.6 L ABG pO2 ABG HCO3 ABG O2 Saturation ABG Base Excess ABG Hemoglobin ABG Oxyhemoglobin 87.8 L ABG Sodium 115.4 L ABG Potassium ABG Chloride ABG Glucose 219 H Oxyhemoglobin Carboxyhemoglobin Sodium Potassium Chloride Carbon Dioxide BUN Creatinine Glucose POC Glucose 227 H Hemoglobin A1c Lactic Acid Calcium Ferritin Total Bilirubin AST ALT Alkaline Phosphatase Lactate Dehydrogenase C-Reactive Protein Total Protein Albumin Triglycerides Arterial Blood Glucose 219 H Arterial Blood Ionized Calcium Ur Specific [place] Vancomycin Trough Coronavirus (PCR) 11/27/20 11/27/20 11/27/20 06:25 18:05 23:29 WBC RBC Hgb Hct Plt Count Lymph % (Auto) [place] % (Auto) Lymph # (Auto) [place] # (Auto) Baso # (Auto) Seg Neutrophils % Seg Neuts % (Manual) Lymphocytes % (Manual) Seg Neutrophils # Seg Neutrophils # Man Lymphocytes # (Manual) D-Dimer ABG pH POC ABG pCO2 POC ABG pO2 ABG pO2 ABG HCO3 ABG O2 Saturation ABG Base Excess ABG Hemoglobin ABG Oxyhemoglobin ABG Sodium ABG Potassium ABG Chloride ABG Glucose Oxyhemoglobin Carboxyhemoglobin Sodium Potassium Chloride Carbon Dioxide 38 H BUN 34 H Creatinine 0.4 L Glucose 243 H POC Glucose 329 H 227 H Hemoglobin A1c Lactic Acid Calcium 7.9 L Ferritin Total Bilirubin AST 50 H ALT 110 H Alkaline Phosphatase Lactate Dehydrogenase C-Reactive Protein Total Protein 6.1 L Albumin 2.4 L Triglycerides Arterial Blood Glucose Arterial Blood Ionized Calcium Ur Specific [place] Vancomycin Trough Coronavirus (PCR) 11/28/20 11/28/20 11/28/20 03:45 03:45 03:46 WBC 12.2 H RBC Hgb Hct Plt Count Lymph % (Auto) [place] % (Auto) Lymph # (Auto) [place] # (Auto) Baso # (Auto) Seg Neutrophils % Seg Neuts % (Manual) 93.0 H Lymphocytes % (Manual) 2.0 L Seg Neutrophils # Seg Neutrophils # Man 11.3 H Lymphocytes # (Manual) 0.2 L D-Dimer ABG pH POC ABG pCO2 68.4 H POC ABG pO2 55.4 L ABG pO2 ABG HCO3 ABG O2 Saturation ABG Base Excess ABG Hemoglobin ABG Oxyhemoglobin ABG Sodium ABG Potassium ABG Chloride ABG Glucose 197 H Oxyhemoglobin Carboxyhemoglobin Sodium Potassium Chloride Carbon Dioxide 36 H BUN 37 H Creatinine 0.4 L Glucose 194 H POC Glucose Hemoglobin A1c Lactic Acid Calcium 8.1 L Ferritin Total Bilirubin AST ALT 86 H Alkaline Phosphatase Lactate Dehydrogenase C-Reactive Protein Total Protein 6.0 L Albumin 2.3 L Triglycerides Arterial Blood Glucose 197 H Arterial Blood Ionized Calcium Ur Specific [place] Vancomycin Trough Coronavirus (PCR) 11/28/20 11/28/20 11/29/20 05:24 12:21 04:41 WBC RBC Hgb Hct Plt Count Lymph % (Auto) [place] % (Auto) Lymph # (Auto) [place] # (Auto) Baso # (Auto) Seg Neutrophils % Seg Neuts % (Manual) Lymphocytes % (Manual) Seg Neutrophils # Seg Neutrophils # Man Lymphocytes # (Manual) D-Dimer ABG pH POC ABG pCO2 55.1 H POC ABG pO2 53.6 L ABG pO2 ABG HCO3 ABG O2 Saturation ABG Base Excess ABG Hemoglobin ABG Oxyhemoglobin 87.1 L ABG Sodium 131.2 L ABG Potassium ABG Chloride ABG Glucose 164 H Oxyhemoglobin Carboxyhemoglobin Sodium Potassium Chloride Carbon Dioxide BUN Creatinine Glucose POC Glucose 173 H 126 H Hemoglobin A1c Lactic Acid Calcium Ferritin Total Bilirubin AST ALT Alkaline Phosphatase Lactate Dehydrogenase C-Reactive Protein Total Protein Albumin Triglycerides Arterial Blood Glucose 164 H Arterial Blood Ionized Calcium 4.4 L Ur Specific [place] Vancomycin Trough Coronavirus (PCR) 11/29/20 11/29/20 11/29/20 05:29 12:41 13:28 WBC RBC Hgb Hct Plt Count Lymph % (Auto) [place] % (Auto) Lymph # (Auto) [place] # (Auto) Baso # (Auto) Seg Neutrophils % Seg Neuts % (Manual) Lymphocytes % (Manual) Seg Neutrophils # Seg Neutrophils # Man Lymphocytes # (Manual) D-Dimer ABG pH POC ABG pCO2 POC ABG pO2 ABG pO2 ABG HCO3 ABG O2 Saturation ABG Base Excess ABG Hemoglobin ABG Oxyhemoglobin ABG Sodium ABG Potassium ABG Chloride ABG Glucose Oxyhemoglobin Carboxyhemoglobin Sodium Potassium Chloride Carbon Dioxide 40 H BUN 32 H Creatinine 0.4 L Glucose 274 H POC Glucose 173 H 257 H Hemoglobin A1c Lactic Acid Calcium 7.2 L Ferritin Total Bilirubin AST 57 H ALT 102 H Alkaline Phosphatase Lactate Dehydrogenase C-Reactive Protein Total Protein 5.7 L Albumin 2.1 L Triglycerides Arterial Blood Glucose Arterial Blood Ionized Calcium Ur Specific [place] Vancomycin Trough Coronavirus (PCR) 11/29/20 11/29/20 11/29/20 15:40 17:36 21:26 WBC RBC Hgb Hct Plt Count Lymph % (Auto) [place] % (Auto) Lymph # (Auto) [place] # (Auto) Baso # (Auto) Seg Neutrophils % Seg Neuts % (Manual) Lymphocytes % (Manual) Seg Neutrophils # Seg Neutrophils # Man Lymphocytes # (Manual) D-Dimer ABG pH POC ABG pCO2 POC ABG pO2 ABG pO2 ABG HCO3 ABG O2 Saturation ABG Base Excess ABG Hemoglobin ABG Oxyhemoglobin ABG Sodium ABG Potassium ABG Chloride ABG Glucose Oxyhemoglobin Carboxyhemoglobin Sodium Potassium Chloride Carbon Dioxide BUN Creatinine Glucose POC Glucose 240 H 244 H Hemoglobin A1c Lactic Acid Calcium Ferritin Total Bilirubin AST ALT Alkaline Phosphatase Lactate Dehydrogenase C-Reactive Protein Total Protein Albumin Triglycerides Arterial Blood Glucose Arterial Blood Ionized Calcium Ur Specific [place] Vancomycin Trough 4.0 L Coronavirus (PCR) 11/29/20 11/30/20 11/30/20 23:26 03:30 03:30 WBC RBC Hgb Hct Plt Count Lymph % (Auto) [place] % (Auto) Lymph # (Auto) [place] # (Auto) Baso # (Auto) Seg Neutrophils % Seg Neuts % (Manual) 97.0 H Lymphocytes % (Manual) 1.0 L Seg Neutrophils # Seg Neutrophils # Man 9.9 H Lymphocytes # (Manual) 0.1 L D-Dimer ABG pH POC ABG pCO2 POC ABG pO2 ABG pO2 ABG HCO3 ABG O2 Saturation ABG Base Excess ABG Hemoglobin ABG Oxyhemoglobin ABG Sodium ABG Potassium ABG Chloride ABG Glucose Oxyhemoglobin Carboxyhemoglobin Sodium Potassium Chloride Carbon Dioxide 38 H BUN 34 H Creatinine 0.4 L Glucose 305 H POC Glucose 283 H Hemoglobin A1c Lactic Acid Calcium 7.6 L Ferritin Total Bilirubin AST ALT 89 H Alkaline Phosphatase Lactate Dehydrogenase C-Reactive Protein Total Protein 6.0 L Albumin 2.3 L Triglycerides Arterial Blood Glucose Arterial Blood Ionized Calcium Ur Specific [place] Vancomycin Trough Coronavirus (PCR) 11/30/20 11/30/20 11/30/20 03:57 05:22 12:05 WBC RBC Hgb Hct Plt Count Lymph % (Auto) [place] % (Auto) Lymph # (Auto) [place] # (Auto) Baso # (Auto) Seg Neutrophils % Seg Neuts % (Manual) Lymphocytes % (Manual) Seg Neutrophils # Seg Neutrophils # Man Lymphocytes # (Manual) D-Dimer ABG pH POC ABG pCO2 60.8 H POC ABG pO2 51.1 L ABG pO2 ABG HCO3 ABG O2 Saturation ABG Base Excess ABG Hemoglobin ABG Oxyhemoglobin 84.6 L ABG Sodium ABG Potassium ABG Chloride ABG Glucose 315 H Oxyhemoglobin Carboxyhemoglobin Sodium Potassium Chloride Carbon Dioxide BUN Creatinine Glucose POC Glucose 295 H 413 H Hemoglobin A1c Lactic Acid Calcium Ferritin Total Bilirubin AST ALT Alkaline Phosphatase Lactate Dehydrogenase C-Reactive Protein Total Protein Albumin Triglycerides Arterial Blood Glucose 315 H Arterial Blood Ionized Calcium 4.5 L Ur Specific [place] Vancomycin Trough Coronavirus (PCR) 11/30/20 11/30/20 12/01/20 17:24 23:25 02:14 WBC RBC Hgb Hct Plt Count Lymph % (Auto) [place] % (Auto) Lymph # (Auto) [place] # (Auto) Baso # (Auto) Seg Neutrophils % Seg Neuts % (Manual) Lymphocytes % (Manual) Seg Neutrophils # Seg Neutrophils # Man Lymphocytes # (Manual) D-Dimer ABG pH 7.278 L POC ABG pCO2 78.1 H POC ABG pO2 79.5 L ABG pO2 ABG HCO3 ABG O2 Saturation ABG Base Excess ABG Hemoglobin 11.6 L ABG Oxyhemoglobin ABG Sodium 134.5 L ABG Potassium 4.6 H ABG Chloride ABG Glucose 286 H Oxyhemoglobin Carboxyhemoglobin Sodium Potassium Chloride Carbon Dioxide BUN Creatinine Glucose POC Glucose 305 H 302 H Hemoglobin A1c Lactic Acid Calcium Ferritin Total Bilirubin AST ALT Alkaline Phosphatase Lactate Dehydrogenase C-Reactive Protein Total Protein Albumin Triglycerides Arterial Blood Glucose 286 H Arterial Blood Ionized Calcium Ur Specific [place] Vancomycin Trough Coronavirus (PCR) 12/01/20 12/01/20 12/01/20 03:35 03:35 05:22 WBC 13.4 H RBC 3.54 L Hgb 10.4 L Hct 31.8 L Plt Count Lymph % (Auto) [place] % (Auto) Lymph # (Auto) [place] # (Auto) Baso # (Auto) Seg Neutrophils % Seg Neuts % (Manual) 95.0 H Lymphocytes % (Manual) 3.0 L Seg Neutrophils # Seg Neutrophils # Man 12.7 H Lymphocytes # (Manual) 0.4 L D-Dimer ABG pH POC ABG pCO2 POC ABG pO2 ABG pO2 ABG HCO3 ABG O2 Saturation ABG Base Excess ABG Hemoglobin ABG Oxyhemoglobin ABG Sodium ABG Potassium ABG Chloride ABG Glucose Oxyhemoglobin Carboxyhemoglobin Sodium Potassium Chloride Carbon Dioxide 35 H BUN 34 H Creatinine 0.5 L Glucose 279 H POC Glucose 259 H Hemoglobin A1c Lactic Acid Calcium 7.6 L Ferritin Total Bilirubin AST ALT 63 H Alkaline Phosphatase Lactate Dehydrogenase C-Reactive Protein Total Protein 4.8 L Albumin 2.1 L Triglycerides Arterial Blood Glucose Arterial Blood Ionized Calcium Ur Specific [place] Vancomycin Trough Coronavirus (PCR) 12/01/20 12/01/20 12/01/20 12:05 17:40 23:46 WBC RBC Hgb Hct Plt Count Lymph % (Auto) [place] % (Auto) Lymph # (Auto) [place] # (Auto) Baso # (Auto) Seg Neutrophils % Seg Neuts % (Manual) Lymphocytes % (Manual) Seg Neutrophils # Seg Neutrophils # Man Lymphocytes # (Manual) D-Dimer ABG pH POC ABG pCO2 POC ABG pO2 ABG pO2 ABG HCO3 ABG O2 Saturation ABG Base Excess ABG Hemoglobin ABG Oxyhemoglobin ABG Sodium ABG Potassium ABG Chloride ABG Glucose Oxyhemoglobin Carboxyhemoglobin Sodium Potassium Chloride Carbon Dioxide BUN Creatinine Glucose POC Glucose 197 H 244 H 284 H Hemoglobin A1c Lactic Acid Calcium Ferritin Total Bilirubin AST ALT Alkaline Phosphatase Lactate Dehydrogenase C-Reactive Protein Total Protein Albumin Triglycerides Arterial Blood Glucose Arterial Blood Ionized Calcium Ur Specific [place] Vancomycin Trough Coronavirus (PCR) 12/02/20 12/02/20 12/02/20 02:14 03:03 04:11 WBC 16.5 H RBC 3.55 L Hgb 10.5 L Hct 31.9 L Plt Count Lymph % (Auto) [place] % (Auto) Lymph # (Auto) [place] # (Auto) Baso # (Auto) Seg Neutrophils % Seg Neuts % (Manual) 90.0 H Lymphocytes % (Manual) 3.0 L Seg Neutrophils # Seg Neutrophils # Man 14.9 H Lymphocytes # (Manual) 0.5 L D-Dimer ABG pH POC ABG pCO2 74.8 H POC ABG pO2 58.9 L ABG pO2 ABG HCO3 ABG O2 Saturation ABG Base Excess ABG Hemoglobin 11.5 L ABG Oxyhemoglobin ABG Sodium ABG Potassium ABG Chloride ABG Glucose 264 H Oxyhemoglobin Carboxyhemoglobin Sodium Potassium Chloride Carbon Dioxide 37 H BUN 30 H Creatinine 0.4 L Glucose 245 H POC Glucose Hemoglobin A1c Lactic Acid Calcium 7.5 L Ferritin Total Bilirubin AST ALT Alkaline Phosphatase Lactate Dehydrogenase C-Reactive Protein Total Protein 5.2 L Albumin 2.2 L Triglycerides Arterial Blood Glucose 264 H Arterial Blood Ionized Calcium 4.5 L Ur Specific [place] Vancomycin Trough Coronavirus (PCR) 12/02/20 12/02/20 12/02/20 05:19 11:46 17:52 WBC RBC Hgb Hct Plt Count Lymph % (Auto) [place] % (Auto) Lymph # (Auto) [place] # (Auto) Baso # (Auto) Seg Neutrophils % Seg Neuts % (Manual) Lymphocytes % (Manual) Seg Neutrophils # Seg Neutrophils # Man Lymphocytes # (Manual) D-Dimer ABG pH POC ABG pCO2 POC ABG pO2 ABG pO2 ABG HCO3 ABG O2 Saturation ABG Base Excess ABG Hemoglobin ABG Oxyhemoglobin ABG Sodium ABG Potassium ABG Chloride ABG Glucose Oxyhemoglobin Carboxyhemoglobin Sodium Potassium Chloride Carbon Dioxide BUN Creatinine Glucose POC Glucose 238 H 236 H 233 H Hemoglobin A1c Lactic Acid Calcium Ferritin Total Bilirubin AST ALT Alkaline Phosphatase Lactate Dehydrogenase C-Reactive Protein Total Protein Albumin Triglycerides Arterial Blood Glucose Arterial Blood Ionized Calcium Ur Specific [place] Vancomycin Trough Coronavirus (PCR) 12/02/20 12/03/20 12/03/20 23:23 03:21 04:35 WBC RBC Hgb Hct Plt Count 112 L Lymph % (Auto) [place] % (Auto) Lymph # (Auto) [place] # (Auto) Baso # (Auto) Seg Neutrophils % Seg Neuts % (Manual) 93.0 H Lymphocytes % (Manual) 4.0 L Seg Neutrophils # Seg Neutrophils # Man 9.1 H Lymphocytes # (Manual) 0.4 L D-Dimer ABG pH 7.299 L POC ABG pCO2 82.1 H POC ABG pO2 62.4 L ABG pO2 ABG HCO3 ABG O2 Saturation ABG Base Excess ABG Hemoglobin 11.5 L ABG Oxyhemoglobin 89.6 L ABG Sodium 134.3 L ABG Potassium ABG Chloride 95.0 L ABG Glucose 203 H Oxyhemoglobin Carboxyhemoglobin Sodium Potassium Chloride Carbon Dioxide BUN Creatinine Glucose POC Glucose 213 H Hemoglobin A1c Lactic Acid Calcium Ferritin Total Bilirubin AST ALT Alkaline Phosphatase Lactate Dehydrogenase C-Reactive Protein Total Protein Albumin Triglycerides Arterial Blood Glucose 203 H Arterial Blood Ionized Calcium 4.5 L Ur Specific [place] Vancomycin Trough Coronavirus (PCR) 12/03/20 12/03/20 12/03/20 04:35 05:42 11:28 WBC RBC Hgb Hct Plt Count Lymph % (Auto) [place] % (Auto) Lymph # (Auto) [place] # (Auto) Baso # (Auto) Seg Neutrophils % Seg Neuts % (Manual) Lymphocytes % (Manual) Seg Neutrophils # Seg Neutrophils # Man Lymphocytes # (Manual) D-Dimer ABG pH POC ABG pCO2 POC ABG pO2 ABG pO2 ABG HCO3 ABG O2 Saturation ABG Base Excess ABG Hemoglobin ABG Oxyhemoglobin ABG Sodium ABG Potassium ABG Chloride ABG Glucose Oxyhemoglobin Carboxyhemoglobin Sodium Potassium Chloride 97.8 L Carbon Dioxide 43 H* BUN 25 H Creatinine 0.3 L Glucose 214 H POC Glucose 193 H 211 H Hemoglobin A1c Lactic Acid Calcium 7.7 L Ferritin Total Bilirubin AST ALT 63 H Alkaline Phosphatase 132 H Lactate Dehydrogenase C-Reactive Protein Total Protein 5.1 L Albumin 2.4 L Triglycerides Arterial Blood Glucose Arterial Blood Ionized Calcium Ur Specific [place] Vancomycin Trough Coronavirus (PCR) 12/03/20 12/03/20 12/04/20 17:45 23:57 00:11 WBC RBC Hgb Hct Plt Count Lymph % (Auto) [place] % (Auto) Lymph # (Auto) [place] # (Auto) Baso # (Auto) Seg Neutrophils % Seg Neuts % (Manual) Lymphocytes % (Manual) Seg Neutrophils # Seg Neutrophils # Man Lymphocytes # (Manual) D-Dimer ABG pH POC ABG pCO2 POC ABG pO2 ABG pO2 ABG HCO3 ABG O2 Saturation ABG Base Excess ABG Hemoglobin ABG Oxyhemoglobin ABG Sodium ABG Potassium ABG Chloride ABG Glucose Oxyhemoglobin Carboxyhemoglobin Sodium Potassium Chloride Carbon Dioxide BUN Creatinine Glucose POC Glucose 231 H 240 H 239 H Hemoglobin A1c Lactic Acid Calcium Ferritin Total Bilirubin AST ALT Alkaline Phosphatase Lactate Dehydrogenase C-Reactive Protein Total Protein Albumin Triglycerides Arterial Blood Glucose Arterial Blood Ionized Calcium Ur Specific [place] Vancomycin Trough Coronavirus (PCR) 12/04/20 12/04/20 12/04/20 04:00 05:20 05:34 WBC RBC Hgb Hct Plt Count Lymph % (Auto) [place] % (Auto) Lymph # (Auto) [place] # (Auto) Baso # (Auto) Seg Neutrophils % Seg Neuts % (Manual) Lymphocytes % (Manual) Seg Neutrophils # Seg Neutrophils # Man Lymphocytes # (Manual) D-Dimer ABG pH POC ABG pCO2 84.4 H POC ABG pO2 68.0 L ABG pO2 ABG HCO3 ABG O2 Saturation ABG Base Excess ABG Hemoglobin 11.6 L ABG Oxyhemoglobin ABG Sodium 130.9 L ABG Potassium ABG Chloride 90.0 L ABG Glucose 244 H Oxyhemoglobin Carboxyhemoglobin Sodium Potassium Chloride Carbon Dioxide BUN Creatinine Glucose POC Glucose 241 H 213 H Hemoglobin A1c Lactic Acid Calcium Ferritin Total Bilirubin AST ALT Alkaline Phosphatase Lactate Dehydrogenase C-Reactive Protein Total Protein Albumin Triglycerides Arterial Blood Glucose 244 H Arterial Blood Ionized Calcium 4.4 L Ur Specific [place] Vancomycin Trough Coronavirus (PCR) 12/04/20 12/04/20 12/04/20 11:36 16:53 23:32 WBC RBC Hgb Hct Plt Count Lymph % (Auto) [place] % (Auto) Lymph # (Auto) [place] # (Auto) Baso # (Auto) Seg Neutrophils % Seg Neuts % (Manual) Lymphocytes % (Manual) Seg Neutrophils # Seg Neutrophils # Man Lymphocytes # (Manual) D-Dimer ABG pH POC ABG pCO2 POC ABG pO2 ABG pO2 ABG HCO3 ABG O2 Saturation ABG Base Excess ABG Hemoglobin ABG Oxyhemoglobin ABG Sodium ABG Potassium ABG Chloride ABG Glucose Oxyhemoglobin Carboxyhemoglobin Sodium Potassium Chloride Carbon Dioxide BUN Creatinine Glucose POC Glucose 196 H 127 H 230 H Hemoglobin A1c Lactic Acid Calcium Ferritin Total Bilirubin AST ALT Alkaline Phosphatase Lactate Dehydrogenase C-Reactive Protein Total Protein Albumin Triglycerides Arterial Blood Glucose Arterial Blood Ionized Calcium Ur Specific [place] Vancomycin Trough Coronavirus (PCR) 12/04/20 12/05/20 12/05/20 Unknown 04:16 05:21 WBC RBC Hgb Hct Plt Count Lymph % (Auto) [place] % (Auto) Lymph # (Auto) [place] # (Auto) Baso # (Auto) Seg Neutrophils % Seg Neuts % (Manual) Lymphocytes % (Manual) Seg Neutrophils # Seg Neutrophils # Man Lymphocytes # (Manual) D-Dimer ABG pH POC ABG pCO2 86.7 H POC ABG pO2 58.0 L ABG pO2 ABG HCO3 ABG O2 Saturation ABG Base Excess ABG Hemoglobin 11.6 L ABG Oxyhemoglobin 89 L ABG Sodium 130.1 L ABG Potassium 4.9 H ABG Chloride 89.0 L ABG Glucose 254 H Oxyhemoglobin Carboxyhemoglobin Sodium 136 L Potassium Chloride 90.0 L Carbon Dioxide 46 H* BUN 24 H Creatinine 0.3 L Glucose 226 H POC Glucose 213 H Hemoglobin A1c Lactic Acid Calcium 7.6 L Ferritin Total Bilirubin AST 46 H ALT 78 H Alkaline Phosphatase 172 H Lactate Dehydrogenase C-Reactive Protein Total Protein 6.0 L Albumin 2.8 L Triglycerides 156 H Arterial Blood Glucose 254 H Arterial Blood Ionized Calcium 4.4 L Ur Specific [place] Vancomycin Trough Coronavirus (PCR) 12/05/20 12/05/20 12/05/20 11:22 17:26 23:38 WBC RBC Hgb Hct Plt Count Lymph % (Auto) [place] % (Auto) Lymph # (Auto) [place] # (Auto) Baso # (Auto) Seg Neutrophils % Seg Neuts % (Manual) Lymphocytes % (Manual) Seg Neutrophils # Seg Neutrophils # Man Lymphocytes # (Manual) D-Dimer ABG pH POC ABG pCO2 POC ABG pO2 ABG pO2 ABG HCO3 ABG O2 Saturation ABG Base Excess ABG Hemoglobin ABG Oxyhemoglobin ABG Sodium ABG Potassium ABG Chloride ABG Glucose Oxyhemoglobin Carboxyhemoglobin Sodium Potassium Chloride Carbon Dioxide BUN Creatinine Glucose POC Glucose 212 H 157 H 204 H Hemoglobin A1c Lactic Acid Calcium Ferritin Total Bilirubin AST ALT Alkaline Phosphatase Lactate Dehydrogenase C-Reactive Protein Total Protein Albumin Triglycerides Arterial Blood Glucose Arterial Blood Ionized Calcium Ur Specific [place] Vancomycin Trough Coronavirus (PCR) 12/06/20 12/06/20 12/06/20 04:31 04:31 05:12 WBC 17.0 H RBC 3.63 L Hgb 10.8 L D Hct 32.6 L D Plt Count Lymph % (Auto) [place] % (Auto) Lymph # (Auto) [place] # (Auto) Baso # (Auto) Seg Neutrophils % Seg Neuts % (Manual) Lymphocytes % (Manual) Seg Neutrophils # Seg Neutrophils # Man Lymphocytes # (Manual) D-Dimer ABG pH POC ABG pCO2 85.9 H POC ABG pO2 57.6 L ABG pO2 ABG HCO3 ABG O2 Saturation ABG Base Excess ABG Hemoglobin ABG Oxyhemoglobin ABG Sodium 131.2 L ABG Potassium 4.8 H ABG Chloride 86.0 L ABG Glucose 200 H Oxyhemoglobin Carboxyhemoglobin Sodium 134 L Potassium 5.1 H Chloride 88.4 L Carbon Dioxide 47 H* BUN 23 H Creatinine 0.3 L Glucose 206 H POC Glucose Hemoglobin A1c Lactic Acid Calcium 8.3 L Ferritin Total Bilirubin AST 48 H ALT 91 H Alkaline Phosphatase 140 H Lactate Dehydrogenase C-Reactive Protein Total Protein 5.7 L Albumin 2.6 L Triglycerides Arterial Blood Glucose 200 H Arterial Blood Ionized Calcium 4.4 L Ur Specific [place] Vancomycin Trough Coronavirus (PCR) 12/06/20 12/06/20 12/06/20 05:24 12:18 16:45 WBC RBC Hgb Hct Plt Count Lymph % (Auto) [place] % (Auto) Lymph # (Auto) [place] # (Auto) Baso # (Auto) Seg Neutrophils % Seg Neuts % (Manual) Lymphocytes % (Manual) Seg Neutrophils # Seg Neutrophils # Man Lymphocytes # (Manual) D-Dimer ABG pH POC ABG pCO2 POC ABG pO2 ABG pO2 ABG HCO3 ABG O2 Saturation ABG Base Excess ABG Hemoglobin ABG Oxyhemoglobin ABG Sodium ABG Potassium ABG Chloride ABG Glucose Oxyhemoglobin Carboxyhemoglobin Sodium Potassium Chloride Carbon Dioxide BUN Creatinine Glucose POC Glucose 186 H 187 H 150 H Hemoglobin A1c Lactic Acid Calcium Ferritin Total Bilirubin AST ALT Alkaline Phosphatase Lactate Dehydrogenase C-Reactive Protein Total Protein Albumin Triglycerides Arterial Blood Glucose Arterial Blood Ionized Calcium Ur Specific [place] Vancomycin Trough Coronavirus (PCR) 12/06/20 12/07/20 12/07/20 23:43 05:20 05:21 WBC RBC Hgb Hct Plt Count Lymph % (Auto) [place] % (Auto) Lymph # (Auto) [place] # (Auto) Baso # (Auto) Seg Neutrophils % Seg Neuts % (Manual) Lymphocytes % (Manual) Seg Neutrophils # Seg Neutrophils # Man Lymphocytes # (Manual) D-Dimer ABG pH POC ABG pCO2 POC ABG pO2 ABG pO2 48.4 L ABG HCO3 50.8 H ABG O2 Saturation 86.2 L ABG Base Excess 22.4 H ABG Hemoglobin 11.0 L ABG Oxyhemoglobin ABG Sodium ABG Potassium ABG Chloride ABG Glucose Oxyhemoglobin 84.0 L Carboxyhemoglobin Sodium Potassium Chloride Carbon Dioxide BUN Creatinine Glucose POC Glucose 153 H 107 H Hemoglobin A1c Lactic Acid Calcium Ferritin Total Bilirubin AST ALT Alkaline Phosphatase Lactate Dehydrogenase C-Reactive Protein Total Protein Albumin Triglycerides Arterial Blood Glucose Arterial Blood Ionized Calcium Ur Specific [place] Vancomycin Trough Coronavirus (PCR) 12/07/20 12/07/20 12/07/20 13:20 14:28 17:35 WBC RBC Hgb Hct Plt Count Lymph % (Auto) [place] % (Auto) Lymph # (Auto) [place] # (Auto) Baso # (Auto) Seg Neutrophils % Seg Neuts % (Manual) Lymphocytes % (Manual) Seg Neutrophils # Seg Neutrophils # Man Lymphocytes # (Manual) D-Dimer ABG pH POC ABG pCO2 74.1 H POC ABG pO2 68.5 L ABG pO2 ABG HCO3 ABG O2 Saturation ABG Base Excess ABG Hemoglobin 10.7 L ABG Oxyhemoglobin 91.9 L ABG Sodium 132.2 L ABG Potassium 4.7 H ABG Chloride 88.0 L ABG Glucose 138 H Oxyhemoglobin Carboxyhemoglobin Sodium 134 L Potassium Chloride 87.4 L Carbon Dioxide 49 H* BUN Creatinine 0.2 L Glucose 132 H POC Glucose 176 H Hemoglobin A1c Lactic Acid Calcium 7.7 L Ferritin Total Bilirubin AST ALT Alkaline Phosphatase Lactate Dehydrogenase C-Reactive Protein Total Protein Albumin Triglycerides Arterial Blood Glucose 138 H Arterial Blood Ionized Calcium 4.0 L Ur Specific [place] Vancomycin Trough Coronavirus (PCR) 12/07/20 12/08/20 12/08/20 23:44 04:12 05:29 WBC RBC Hgb Hct Plt Count Lymph % (Auto) [place] % (Auto) Lymph # (Auto) [place] # (Auto) Baso # (Auto) Seg Neutrophils % Seg Neuts % (Manual) Lymphocytes % (Manual) Seg Neutrophils # Seg Neutrophils # Man Lymphocytes # (Manual) D-Dimer ABG pH POC ABG pCO2 POC ABG pO2 ABG pO2 69.7 L ABG HCO3 50.1 H ABG O2 Saturation ABG Base Excess 21.6 H ABG Hemoglobin 10.9 L ABG Oxyhemoglobin ABG Sodium ABG Potassium ABG Chloride ABG Glucose Oxyhemoglobin 93.2 L Carboxyhemoglobin Sodium Potassium Chloride Carbon Dioxide BUN Creatinine Glucose POC Glucose 143 H 143 H Hemoglobin A1c Lactic Acid Calcium Ferritin Total Bilirubin AST ALT Alkaline Phosphatase Lactate Dehydrogenase C-Reactive Protein Total Protein Albumin Triglycerides Arterial Blood Glucose Arterial Blood Ionized Calcium Ur Specific [place] Vancomycin Trough Coronavirus (PCR) 12/08/20 12/08/20 12/09/20 06:10 06:10 04:24 WBC 12.0 H RBC 3.18 L Hgb 9.5 L Hct 28.9 L Plt Count Lymph % (Auto) [place] % (Auto) Lymph # (Auto) [place] # (Auto) Baso # (Auto) Seg Neutrophils % Seg Neuts % (Manual) 95.0 H Lymphocytes % (Manual) 3.0 L Seg Neutrophils # Seg Neutrophils # Man 11.4 H Lymphocytes # (Manual) 0.4 L D-Dimer ABG pH POC ABG pCO2 76.2 H POC ABG pO2 52.8 L ABG pO2 ABG HCO3 ABG O2 Saturation ABG Base Excess ABG Hemoglobin 11.7 L ABG Oxyhemoglobin ABG Sodium 132.0 L ABG Potassium ABG Chloride 87.0 L ABG Glucose 118 H Oxyhemoglobin Carboxyhemoglobin Sodium 133 L Potassium Chloride 86.3 L Carbon Dioxide 53 H* BUN Creatinine 0.2 L Glucose 156 H POC Glucose Hemoglobin A1c Lactic Acid Calcium 7.6 L Ferritin Total Bilirubin AST ALT Alkaline Phosphatase Lactate Dehydrogenase C-Reactive Protein Total Protein Albumin Triglycerides Arterial Blood Glucose 118 H Arterial Blood Ionized Calcium 4.2 L Ur Specific [place] Vancomycin Trough Coronavirus (PCR) 12/09/20 12/09/20 12/09/20 05:44 06:40 06:40 WBC 13.5 H RBC 3.28 L Hgb 9.7 L Hct 29.9 L Plt Count Lymph % (Auto) [place] % (Auto) Lymph # (Auto) [place] # (Auto) Baso # (Auto) Seg Neutrophils % Seg Neuts % (Manual) Lymphocytes % (Manual) Seg Neutrophils # Seg Neutrophils # Man Lymphocytes # (Manual) D-Dimer ABG pH POC ABG pCO2 POC ABG pO2 ABG pO2 ABG HCO3 ABG O2 Saturation ABG Base Excess ABG Hemoglobin ABG Oxyhemoglobin ABG Sodium ABG Potassium ABG Chloride ABG Glucose Oxyhemoglobin Carboxyhemoglobin Sodium 135 L Potassium Chloride 89.5 L Carbon Dioxide 52 H* BUN Creatinine 0.3 L Glucose 114 H POC Glucose 117 H Hemoglobin A1c Lactic Acid Calcium 7.6 L Ferritin Total Bilirubin AST ALT Alkaline Phosphatase Lactate Dehydrogenase C-Reactive Protein Total Protein Albumin Triglycerides Arterial Blood Glucose Arterial Blood Ionized Calcium Ur Specific [place] Vancomycin Trough Coronavirus (PCR) 12/09/20 12/09/20 12/10/20 16:42 21:11 04:28 WBC RBC Hgb Hct Plt Count Lymph % (Auto) [place] % (Auto) Lymph # (Auto) [place] # (Auto) Baso # (Auto) Seg Neutrophils % Seg Neuts % (Manual) Lymphocytes % (Manual) Seg Neutrophils # Seg Neutrophils # Man Lymphocytes # (Manual) D-Dimer ABG pH POC ABG pCO2 72.5 H 69.4 H 76.9 H POC ABG pO2 50.4 L 80.6 L 60.2 L ABG pO2 ABG HCO3 ABG O2 Saturation ABG Base Excess ABG Hemoglobin 10.4 L 10.7 L 10 L ABG Oxyhemoglobin 84.3 L 89.7 L ABG Sodium 133.7 L 133.7 L 133.8 L ABG Potassium ABG Chloride 90.0 L 91.0 L 91.0 L ABG Glucose 116 H 96 H 57 L Oxyhemoglobin Carboxyhemoglobin 0.4 L Sodium Potassium Chloride Carbon Dioxide BUN Creatinine Glucose POC Glucose Hemoglobin A1c Lactic Acid Calcium Ferritin Total Bilirubin AST ALT Alkaline Phosphatase Lactate Dehydrogenase C-Reactive Protein Total Protein Albumin Triglycerides Arterial Blood Glucose 116 H 96 H 57 L Arterial Blood Ionized Calcium 4.2 L 4.3 L 4.2 L Ur Specific [place] Vancomycin Trough Coronavirus (PCR) 12/10/20 12/10/20 12/10/20 05:09 05:41 11:50 WBC RBC Hgb Hct Plt Count Lymph % (Auto) [place] % (Auto) Lymph # (Auto) [place] # (Auto) Baso # (Auto) Seg Neutrophils % Seg Neuts % (Manual) Lymphocytes % (Manual) Seg Neutrophils # Seg Neutrophils # Man Lymphocytes # (Manual) D-Dimer ABG pH POC ABG pCO2 POC ABG pO2 ABG pO2 ABG HCO3 ABG O2 Saturation ABG Base Excess ABG Hemoglobin ABG Oxyhemoglobin ABG Sodium ABG Potassium ABG Chloride ABG Glucose Oxyhemoglobin Carboxyhemoglobin Sodium Potassium Chloride Carbon Dioxide BUN Creatinine Glucose POC Glucose 41 L 138 H 106 H Hemoglobin A1c Lactic Acid Calcium Ferritin Total Bilirubin AST ALT Alkaline Phosphatase Lactate Dehydrogenase C-Reactive Protein Total Protein Albumin Triglycerides Arterial Blood Glucose Arterial Blood Ionized Calcium Ur Specific [place] Vancomycin Trough Coronavirus (PCR) 12/10/20 12/10/20 12/11/20 17:34 23:25 04:06 WBC RBC Hgb Hct Plt Count Lymph % (Auto) [place] % (Auto) Lymph # (Auto) [place] # (Auto) Baso # (Auto) Seg Neutrophils % Seg Neuts % (Manual) Lymphocytes % (Manual) Seg Neutrophils # Seg Neutrophils # Man Lymphocytes # (Manual) D-Dimer ABG pH POC ABG pCO2 71.0 H POC ABG pO2 56.8 L ABG pO2 ABG HCO3 ABG O2 Saturation ABG Base Excess ABG Hemoglobin 10.1 L ABG Oxyhemoglobin 88.5 L ABG Sodium 132.3 L ABG Potassium ABG Chloride 91.0 L ABG Glucose 168 H Oxyhemoglobin Carboxyhemoglobin Sodium Potassium Chloride Carbon Dioxide BUN Creatinine Glucose POC Glucose 121 H 167 H Hemoglobin A1c Lactic Acid Calcium Ferritin Total Bilirubin AST ALT Alkaline Phosphatase Lactate Dehydrogenase C-Reactive Protein Total Protein Albumin Triglycerides Arterial Blood Glucose 168 H Arterial Blood Ionized Calcium 4.1 L Ur Specific [place] Vancomycin Trough Coronavirus (PCR) 12/11/20 12/11/20 12/11/20 05:21 11:44 15:40 WBC RBC Hgb Hct Plt Count Lymph % (Auto) [place] % (Auto) Lymph # (Auto) [place] # (Auto) Baso # (Auto) Seg Neutrophils % Seg Neuts % (Manual) Lymphocytes % (Manual) Seg Neutrophils # Seg Neutrophils # Man Lymphocytes # (Manual) D-Dimer ABG pH 7.454 H POC ABG pCO2 58.6 H POC ABG pO2 50.7 L ABG pO2 ABG HCO3 ABG O2 Saturation ABG Base Excess ABG Hemoglobin 10.1 L ABG Oxyhemoglobin 86.2 L ABG Sodium 131.2 L ABG Potassium ABG Chloride 92.0 L ABG Glucose 197 H Oxyhemoglobin Carboxyhemoglobin Sodium Potassium Chloride Carbon Dioxide BUN Creatinine Glucose POC Glucose 149 H 202 H Hemoglobin A1c Lactic Acid Calcium Ferritin Total Bilirubin AST ALT Alkaline Phosphatase Lactate Dehydrogenase C-Reactive Protein Total Protein Albumin Triglycerides Arterial Blood Glucose 197 H Arterial Blood Ionized Calcium 4.2 L Ur Specific [place] Vancomycin Trough Coronavirus (PCR) 12/11/20 12/11/20 12/12/20 17:09 23:16 05:09 WBC RBC Hgb Hct Plt Count Lymph % (Auto) [place] % (Auto) Lymph # (Auto) [place] # (Auto) Baso # (Auto) Seg Neutrophils % Seg Neuts % (Manual) Lymphocytes % (Manual) Seg Neutrophils # Seg Neutrophils # Man Lymphocytes # (Manual) D-Dimer ABG pH POC ABG pCO2 63.1 H POC ABG pO2 62.6 L ABG pO2 ABG HCO3 ABG O2 Saturation ABG Base Excess ABG Hemoglobin 10.3 L ABG Oxyhemoglobin ABG Sodium 130.3 L ABG Potassium 4.6 H ABG Chloride 92.0 L ABG Glucose 215 H Oxyhemoglobin Carboxyhemoglobin Sodium Potassium Chloride Carbon Dioxide BUN Creatinine Glucose POC Glucose 181 H 192 H Hemoglobin A1c Lactic Acid Calcium Ferritin Total Bilirubin AST ALT Alkaline Phosphatase Lactate Dehydrogenase C-Reactive Protein Total Protein Albumin Triglycerides Arterial Blood Glucose 215 H Arterial Blood Ionized Calcium 4.4 L Ur Specific [place] Vancomycin Trough Coronavirus (PCR) 12/12/20 12/12/20 05:16 05:47 WBC RBC Hgb Hct Plt Count Lymph % (Auto) [place] % (Auto) Lymph # (Auto) [place] # (Auto) Baso # (Auto) Seg Neutrophils % Seg Neuts % (Manual) Lymphocytes % (Manual) Seg Neutrophils # Seg Neutrophils # Man Lymphocytes # (Manual) D-Dimer ABG pH POC ABG pCO2 POC ABG pO2 ABG pO2 ABG HCO3 ABG O2 Saturation ABG Base Excess ABG Hemoglobin ABG Oxyhemoglobin ABG Sodium ABG Potassium ABG Chloride ABG Glucose Oxyhemoglobin Carboxyhemoglobin Sodium Potassium Chloride Carbon Dioxide BUN Creatinine Glucose POC Glucose 208 H Hemoglobin A1c Lactic Acid Calcium Ferritin Total Bilirubin AST ALT Alkaline Phosphatase Lactate Dehydrogenase C-Reactive Protein Total Protein Albumin Triglycerides 150 H Arterial Blood Glucose Arterial Blood Ionized Calcium Ur Specific [place] Vancomycin Trough Coronavirus (PCR)
--- NOTE | 2020-12-12 15:47 | Progress Note ---
Assessment and Plan Assessment and plan: COVID-19 test positive; 11/16/2020 --Bilateral Covid pneumonia Management per protocols ID pulmonary following --Sepsis secondary to MRSA pneumonia Continue vancomycin Follow cultures --Acute hypoxic hypercapnic respiratory failure ; requiring intubation and mechanical ventilation Continue ventilatory support, pulmonary critical following Wean as tolerated and extubate, nebulizers IV steroids ID and pulmonary critical following Home oxygen evaluation when patient is stable --Bilateral pneumothorax; status post bilateral chest tube placement Mild improvement, chest tubes in place ,continue supportive care, surgery pulmonary following --Pneumomediastinum, subcutaneous emphysema, Continue supportive care, surgery following --Leukocytosis --Type II Diabetes Mellitus Accu-Chek sliding scale coverage ADA diet Long-acting insulin as needed 12/05: Patient continues on full ventilatory support per transport manager PEEP remains at 18. Still with hypercapnic respiratory failure. FiO2 down to 60% this morning. Chest tube to suction still weaning off steroids in the deliberation ongoing for possible a third chest tube as last documentation by surgery shows no plan for it at this time. Continue to manage insulin for better blood sugar control. 12/06:weaned down to 60%, continue supportive care, unable to wean, 12/07; patient remains intubated on ventilatory support, chest tubes in place trach and PEG when patient's Covid test is negative,Per surgery. 12/08; Patient remains intubated remains with hypercapnia and hypoxia. Chest tube still remain in place. He is off antibiotics at this time. Continue steroids which is likely resultant to the leukocytosis. Mailroom Assistant and surgeon following ID input is noted. Prognosis remains guarded to poor 12/10; patient remains intubated on vent, unable to wean awaiting trach and PEG when Covid test is negative, Continue current management 12/11; patient awaiting trach and PEG when Covid test is negative, vent dependent, poor prognosis 12/12; clinically no change, vent dependent Patient is critically ill with very poor prognosis, awaiting trach and PEG when COVID-19 test turns negative Plan discussed with nursing staff. Caregivers have discussed with patient's family periodically The high probability of a clinically significant, sudden or life threatening deterioration of the [pulmonary] system(s) required my full and direct attention, intervention and personal management. The aggregate critical care time was [33] minutes. This time is in addition to time spent performing reported procedures but includes the follo wing: [X] Data Review and interpretation [X] Patient assessment and monitoring of vital signs [X] Documentation [X] Medication orders and management Plan of care reviewed with the patient's nurse and the case management History Interval history: I have seen and examined the patient at the bedside Strict isolation precautions and PPE protocols were followed per COVID-19 guidelines Remains intubated vent dependent No new complaints from the nursing staff vital signs reviewed Hospitalist Physical - Constitutional Vitals: Temp Pulse Resp BP Pulse Ox 98.7 F 98 H 16 157/90 97 12/12/20 12:00 12/12/20 15:13 12/12/20 12:00 12/12/20 15:13 12/12/20 15:13 General appearance: Present: mild distress, well-nourished, obese, other (Vent dependent) - EENT Eyes: Absent: scleral icterus, conjunctival injection - Neck Neck: Present: supple, normal ROM - Respiratory Respiratory effort: normal Respiratory: bilateral: diminished, rhonchi, negative: rales, wheezing - Cardiovascular Rhythm: regular Heart Sounds: Present: S1 & S2 - Extremities Extremities: no ischemia, No edema - Abdominal General gastrointestinal: soft, non-tender, non-distended, normal bowel sounds - Integumentary Integumentary: Present: clear, warm - Psychiatric Psychiatric: other (Intubated on vent) - Neurologic Neurologic: other (Intubated on vent) HEART Score - HEART Score Troponin: Troponin T < 0.010 ng/mL (0.00-0.029) 12/11/20 06:30 Results - Labs CBC & Chem 7: 12/09/20 06:40 12/09/20 06:40 Labs: Laboratory Last Values WBC 13.5 K/mm3 (4.5-11.0) H 12/09/20 06:40 RBC 3.28 M/mm3 (3.65-5.03) L 12/09/20 06:40 Hgb 9.7 gm/dl (11.8-15.2) L 12/09/20 06:40 Hct 29.9 % (35.5-45.6) L 12/09/20 06:40 MCV 91 fl (84-94) 12/09/20 06:40 MCH 30 pg (28-32) 12/09/20 06:40 MCHC 32 % (32-34) 12/09/20 06:40 RDW 14.8 % (13.2-15.2) 12/09/20 06:40 Plt Count 165 K/mm3 (140-440) 12/09/20 06:40 Lymph % (Auto) 2.0 % (13.4-35.0) L 11/27/20 06:25 [place] % (Auto) 5.2 % (0.0-7.3) 11/27/20 06:25 Eos % (Auto) 0.0 % (0.0-4.3) 11/27/20 06:25 Baso % (Auto) 0.1 % (0.0-1.8) 11/27/20 06:25 Lymph # (Auto) 0.3 K/mm3 (1.2-5.4) L 11/27/20 06:25 [place] # (Auto) 0.7 K/mm3 (0.0-0.8) 11/27/20 06:25 Eos # (Auto) 0.0 K/mm3 (0.0-0.4) 11/27/20 06:25 Baso # (Auto) 0.0 K/mm3 (0.0-0.1) 11/27/20 06:25 Add Manual Diff Complete 12/08/20 06:10 Total Counted 100 12/08/20 06:10 Seg Neutrophils % Refinery Operator Visbreaking 12/08/20 06:10 Seg Neuts % (Manual) 95.0 % (40.0-70.0) H 12/08/20 06:10 Band Neutrophils % 2.0 % 12/02/20 02:14 Lymphocytes % (Manual) 3.0 % (13.4-35.0) L 12/08/20 06:10 Monocytes % (Manual) 2.0 % (0.0-7.3) 12/08/20 06:10 Nucleated RBC % Not Reportable 12/08/20 06:10 Seg Neutrophils # 12.7 K/mm3 (1.8-7.7) H 11/27/20 06:25 Seg Neutrophils # Man 11.4 K/mm3 (1.8-7.7) H 12/08/20 06:10 Band Neutrophils # 0.0 K/mm3 12/08/20 06:10 Lymphocytes # (Manual) 0.4 K/mm3 (1.2-5.4) L 12/08/20 06:10 Abs React Lymphs (Man) 0.0 K/mm3 12/08/20 06:10 Monocytes # (Manual) 0.2 K/mm3 (0.0-0.8) 12/08/20 06:10 Eosinophils # (Manual) 0.0 K/mm3 (0.0-0.4) 12/08/20 06:10 Basophils # (Manual) 0.0 K/mm3 (0.0-0.1) 12/08/20 06:10 Metamyelocytes # 0.0 K/mm3 12/08/20 06:10 Myelocytes # 0.0 K/mm3 12/08/20 06:10 Promyelocytes # 0.0 K/mm3 12/08/20 06:10 Blast Cells # 0.0 K/mm3 12/08/20 06:10 WBC Morphology Not Reportable 12/08/20 06:10 Hypersegmented Neuts Not Reportable 12/08/20 06:10 Hyposegmented Neuts Not Reportable 12/08/20 06:10 Hypogranular Neuts Not Reportable 12/08/20 06:10 Smudge Cells Not Reportable 12/08/20 06:10 Toxic Granulation Not Reportable 12/08/20 06:10 Toxic Vacuolation Not Reportable 12/08/20 06:10 Dohle Bodies Not Reportable 12/08/20 06:10 Pelger-Huet Anomaly Not Reportable 12/08/20 06:10 Tony Rods Not Reportable 12/08/20 06:10 Platelet Estimate Consistent w auto 12/08/20 06:10 Clumped Platelets Not Reportable 12/08/20 06:10 Plt Clumps, EDTA Not Reportable 12/08/20 06:10 Large Platelets Not Reportable 12/08/20 06:10 Giant Platelets Not Reportable 12/08/20 06:10 Platelet Satelliting Not Reportable 12/08/20 06:10 Plt Morphology Comment Not Reportable 12/08/20 06:10 RBC Morphology Not Reportable 12/08/20 06:10 Dimorphic RBCs Not Reportable 12/08/20 06:10 Polychromasia Not Reportable 12/08/20 06:10 Hypochromasia 1+ 12/08/20 06:10 Poikilocytosis Not Reportable 12/08/20 06:10 Anisocytosis Not Reportable 12/08/20 06:10 Microcytosis Not Reportable 12/08/20 06:10 Macrocytosis Not Reportable 12/08/20 06:10 Spherocytes Not Reportable 12/08/20 06:10 Pappenheimer Bodies Not Reportable 12/08/20 06:10 Sickle Cells Not Reportable 12/08/20 06:10 Target Cells Not Reportable 12/08/20 06:10 Tear Drop Cells Not Reportable 12/08/20 06:10 Ovalocytes Not Reportable 12/08/20 06:10 Stomatocytes 1+ 12/03/20 04:35 Helmet Cells Not Reportable 12/08/20 06:10 [place] Bodies Not Reportable 12/08/20 06:10 [place] Rings Not Reportable 12/08/20 06:10 Henrry Cells Not Reportable 12/08/20 06:10 Bite Cells Not Reportable 12/08/20 06:10 Crenated Cell Not Reportable 12/08/20 06:10 Elliptocytes Not Reportable 12/08/20 06:10 Acanthocytes (Spur) Not Reportable 12/08/20 06:10 Rouleaux Not Reportable 12/08/20 06:10 Hemoglobin C Crystals Not Reportable 12/08/20 06:10 Schistocytes Not Reportable 12/08/20 06:10 Malaria parasites Not Reportable 12/08/20 06:10 Yovani Bodies Not Reportable 12/08/20 06:10 Hem Pathologist Commnt No 12/08/20 06:10 D-Dimer 926.11 ng/mlDDU (0-234) H 11/26/20 06:04 ABG pH 7.420 (7.320-7.450) 12/12/20 05:09 POC ABG pCO2 63.1 mmHg (32.0-48.0) H 12/12/20 05:09 ABG pCO2 81.3 mm Hg 12/08/20 04:12 POC ABG pO2 62.6 mmHg (83-108) L 12/12/20 05:09 ABG pO2 69.7 mm Hg (80.0-90.0) L 12/08/20 04:12 POC ABG HCO3 40.0 12/12/20 05:09 ABG HCO3 50.1 mmol/L (20.0-26.0) H 12/08/20 04:12 ABG O2 Saturation 95.4 % (95.0-99.0) 12/08/20 04:12 ABG O2 Content 13.0 (0.0-44) 12/07/20 05:20 POC ABG Base Excess 13.4 12/12/20 05:09 ABG Base Excess 21.6 mmol/L (-2.0-3.0) H 12/08/20 04:12 ABG Hemoglobin 10.3 (12.0-17.5) L 12/12/20 05:09 ABG Oxyhemoglobin 86.2 (94-98) L 12/11/20 15:40 ABG Carboxyhemoglobin 2.0 % (0.0-5.0) 12/08/20 04:12 ABG Methemoglobin 0.3 (0.0-1.5) 12/11/20 15:40 ABG Sodium 130.3 mmol/L (136.0-145.0) L 12/12/20 05:09 ABG Potassium 4.6 mmol/L (3.40-4.50) H 12/12/20 05:09 ABG Chloride 92.0 mmol/L (98-107) L 12/12/20 05:09 ABG Glucose 215 mg/dL (65-95) H 12/12/20 05:09 Oxyhemoglobin 93.2 % (95.0-99.0) L 12/08/20 04:12 Carboxyhemoglobin 0.8 (0.5-1.5) 12/11/20 15:40 FiO2 100 12/12/20 05:09 Sodium 135 mmol/L (137-145) L 12/09/20 06:40 Potassium 4.3 mmol/L (3.6-5.0) 12/09/20 06:40 Chloride 89.5 mmol/L (98-107) L 12/09/20 06:40 Carbon Dioxide 52 mmol/L (22-30) H* 12/09/20 06:40 Anion Gap -2 mmol/L 12/09/20 06:40 BUN 14 mg/dL (9-20) 12/09/20 06:40 Creatinine 0.3 mg/dL (0.8-1.3) L 12/09/20 06:40 Estimated GFR > 60 ml/min 12/09/20 06:40 BUN/Creatinine Ratio 47 % 12/09/20 06:40 Glucose 114 mg/dL (75-100) H 12/09/20 06:40 POC Glucose 218 mg/dL (70-105) H 12/12/20 11:41 Hemoglobin A1c 11.7 % (4-6) H 11/16/20 05:29 Lactic Acid 2.60 mmol/L (0.7-2.0) H* 11/16/20 05:29 Calcium 7.6 mg/dL (8.4-10.2) L 12/09/20 06:40 Phosphorus 2.90 mg/dL (2.5-4.5) 12/04/20 Unknown Magnesium 1.90 mg/dL (1.7-2.3) 12/04/20 Unknown Ferritin 778.8 ng/mL (30.0-300.0) H 11/26/20 04:00 Total Bilirubin 0.30 mg/dL (0.1-1.2) 12/06/20 04:31 AST 48 units/L (5-40) H 12/06/20 04:31 ALT 91 units/L (7-56) H 12/06/20 04:31 Alkaline Phosphatase 140 units/L (35-129) H 12/06/20 04:31 Lactate Dehydrogenase 288 units/L (91-180) H 11/26/20 04:00 Troponin T < 0.010 ng/mL (0.00-0.029) 12/11/20 06:30 C-Reactive Protein 1.40 mg/dL (0.00-1.30) H 11/26/20 04:00 NT-Pro-B Natriuret Pep 107.2 pg/mL (0-900) 11/17/20 10:21 Total Protein 5.7 g/dL (6.3-8.2) L 12/06/20 04:31 Albumin 2.6 g/dL (3.9-5) L 12/06/20 04:31 Albumin/Globulin Ratio 0.8 % 12/06/20 04:31 Triglycerides 150 mg/dL (2-149) H 12/12/20 05:16 Procalcitonin 0.16 ng/mL (<0.15) 12/12/20 05:16 Arterial Blood Glucose 215 mg/dL (65-95) H 12/12/20 05:09 Arterial Blood Ionized Calcium 4.4 mg/dL (4.6-5.3) L 12/12/20 05:09 Urine Color Faustina (Yellow) 11/16/20 01:45 Urine Turbidity Slightly-cloudy (Clear) 11/16/20 01:45 Urine pH 6.0 (5.0-7.0) 11/16/20 01:45 Ur Specific [place] 1.037 (1.003-1.030) H 11/16/20 01:45 Urine Protein 30 mg/dl mg/dL (Negative) 11/16/20 01:45 Urine Glucose (UA) >=500 mg/dL (Negative) 11/16/20 01:45 Urine Ketones 20 mg/dL (Negative) 11/16/20 01:45 Urine Blood Neg (Negative) 11/16/20 01:45 Urine Nitrite Neg (Negative) 11/16/20 01:45 Urine Bilirubin Neg (Negative) 11/16/20 01:45 Urine Urobilinogen 2.0 mg/dL (<2.0) 11/16/20 01:45 Ur Leukocyte Esterase Neg (Negative) 11/16/20 01:45 Urine WBC (Auto) 2.0 /HPF (0.0-6.0) 11/16/20 01:45 Urine RBC (Auto) 1.0 /HPF (0.0-6.0) 11/16/20 01:45 Urine Bacteria (Auto) 1+ /HPF (Negative) 11/16/20 01:45 Urine Mucus 3+ /HPF 11/16/20 01:45 Vancomycin Trough 4.0 ug/mL (5.0-20.0) L 11/29/20 15:40 Coronavirus (PCR) Positive (Negative) A 11/16/20 Unknown Microbiology: Microbiology 12/09/20 13:10 Tracheal Aspirate Sputum Culture - Final Klebsiella Pneumoniae 12/09/20 10:05 Urine,[place] Urine Culture - Final Emma Albicans 12/09/20 11:37 Peripheral/Venous Blood Culture - Preliminary NO GROWTH AFTER 72 HOURS 12/09/20 11:37 Peripheral/Venous Blood Culture - Preliminary NO GROWTH AFTER 72 HOURS - Diagnostic Impressions Diagnostic Impressions: Echocardiogram 11/16/20 10:34 Transthoracic Echocardiogram Indication: Shortness of breath-COVID BP: 108/77 HR: 92 Conclusions *Global left ventricular systolic function is normal. *The estimated ejection fraction is 60-65%. *Mild to moderate concentric left ventricular hypertrophy is observed. *There is trace of mitral regurgitation. *There is mild to moderate tricuspid regurgitation. *There is evidence of mild pulmonary hypertension. *The right ventricular systolic pressure is calculated at 31 mmHg. Findings Left Ventricle: The left ventricular chamber size is normal. Mild to moderate concentric left ventricular hypertrophy is observed. Global left ventricular systolic function is normal. The estimated ejection fraction is 60-65%. Left Atrium: The left atrial chamber size is normal. Right Ventricle: The right ventricular cavity size is normal. The right ventricular global systolic function is normal. Right Atrium: The right atrial cavity size is normal. Aortic Valve: The aortic valve is trileaflet. There is no evidence of aortic regurgitation. There is no evidence of aortic stenosis. Mitral Valve: The mitral valve leaflets appear normal. There is trace of mitral regurgitation. There is no evidence of mitral stenosis. Tricuspid Valve: The tricuspid valve leaflets are normal. There is mild to moderate tricuspid regurgitation. The right ventricular systolic pressure is calculated at 31 mmHg. There is evidence of mild pulmonary hypertension. Pulmonic Valve: There is trace pulmonic regurgitation. Pericardium: There is no pericardial effusion. Aorta: There is no dilatation of the ascending aorta. There is no dilatation of the aortic root. Venous: The inferior vena cava appears normal in size. Measurements Chambers 2D Name Value Normal Range IVSd (2D) 0.81 cm (0.6 - 1.1) LVPWd (2D) 0.79 cm (0.6 - 1.1) LVIDd (2D) 4.22 cm (3.7 - 5.6) LVIDs (2D) 3.1 cm (2 - 3.8) LV FS (2D) 26.71 % - EF Teichholz (2D) 52.55 % - Ao root diameter (2D) 3.34 cm (2 - 3.7) Volumes/Mass Name Value Normal Range LA ESV SP 4CH (A/L) 10.87 ml - LA ESV SP 2CH (A/L) 18.74 ml - LA ESV BP (A/L) 16.38 ml - LA ESV BP (A/L) index 8.62 ml/m2 - LA ESV SP 4CH (MOD) 10.32 ml - LA ESV SP 2CH (MOD) 17.66 ml - LA ESV BP (MOD) 15.12 ml - LA ESV BP (MOD) index 7.96 ml/m2 - Diastolic/Systolic Function Name Value Normal Range MV E-wave Vmax 0.76 m/sec - MV deceleration time 133.63 msec - MV A-wave Vmax 1.1 m/sec - MV E:A ratio 0.69 ratio - Aortic Valve Name Value Normal Range AV Vmax 1.44 m/sec - AV VTI 22.94 cm - AV peak gradient 8.33 mmHg - AV mean gradient 4.73 mmHg - LVOT diameter 2.2 cm - LVOT Vmax 1.04 m/sec - LVOT VTI 18.88 cm - LVOT peak gradient 4.34 mmHg - LVOT mean gradient 2.31 mmHg - SV LVOT 72.05 ml - EVANGELISTA (continuity Vmax) 2.75 cm2 - EVANGELISTA (continuity VTI) 3.14 cm2 - Tricuspid Valve Name Value Normal Range TR Vmax 2.64 m/sec - TR peak gradient 28 mmHg - RAP 3 mmHg - RVSP 31 mmHg - Gupta/IV: Voiding Method Indwelling Catheter IV Catheter Type [Left Peripheral IV Antecubital] Active Medications - Current Medications Current Medications: Generic Name Dose Route Start Last Admin Trade Name Freq PRN Reason Stop Dose Admin Acetaminophen 650 mg 11/15/20 23:55 12/09/20 00:14 Acetaminophen 325 Mg Tab PO 650 mg Q4H PRN Administration Pain MILD(1-3)/Fever >100.5/BUTTS Lipase/Protease/Amylase 1 each 11/23/20 11:53 12/05/20 23:45 Lipase 10,500/Protease 25,000/Amylase 43,750 (Units) Dr Slater FEEDTUBE 1 each PRN PRN Administration For Clogged Feeding Tube Dextrose 25 ml 12/10/20 05:21 12/10/20 05:24 Dextrose 50% In Water (25gm) 50 Ml Syringe IV 25 ml Q30MIN PRN Administration Hypoglycemia Protocol Enoxaparin Sodium 40 mg 12/03/20 22:00 12/11/20 23:06 Enoxaparin 40 Mg/0.4 Ml Inj SUB-Q 40 mg QDAY@2200 RAEANN Administration Famotidine 20 mg 11/22/20 22:00 12/12/20 10:04 Famotidine 20 Mg/2 Ml Inj IV 20 mg BID RAEANN Administration Fentanyl 50 mcg 11/21/20 21:53 12/11/20 18:54 Fentanyl 100 Mcg/2 Ml Inj IV 50 mcg Q10MIN PRN Administration ANALGESIA Hydrophilic Ointment 1 applic 11/21/20 21:53 11/30/20 21:33 Lip Therapy Vaseline TP 1 applic Q2HR PRN Administration Dry Lips Fentanyl Citrate 2,000 mcg in 100 mls @ 3.625 mls/hr 11/21/20 22:00 12/12/20 08:27 Fentanyl Drip Premix IV 4 mcg/kg/hr TITR RAEANN 14.5 mls/hr Administration Protocol 1 MCG/KG/HR Midazolam HCl 100 mg/ Sodium 100 mls @ 2 mls/hr 11/21/20 22:00 12/11/20 20:18 Chloride IV 5 mg/hr TITR RAEANN 5 mls/hr Administration Protocol 2 MG/HR Norepinephrine 4 mg in 250 mls @ 7.5 mls/hr 11/22/20 17:00 12/12/20 04:30 Levophed Drip 4 Mg/Ns 250 Ml IV 0 mcg/min TITR RAEANN 0 mls/hr Titration Protocol 2 MCG/MIN Propofol 1,000 mg in 100 mls @ 2.175 mls/hr 11/27/20 12:00 12/11/20 17:55 Diprivan 10 Mg/Ml IV 0 mcg/kg/min TITR RAEANN 0 mls/hr Titration Protocol 5 MCG/KG/MIN Dexmedetomidine HCl 400 mcg/ 104 mls @ 4.441 mls/hr 12/10/20 13:00 12/12/20 08:26 Sodium Chloride IV 0.5 mcg/kg/hr TITRATE RAEANN 11.102 mls/hr Administration Protocol 0.2 MCG/KG/HR Cefepime HCl 2 gm in 100 mls @ 200 mls/hr 12/11/20 16:00 12/12/20 08:26 Cefepime/Ns 2 Gm/100 Ml IV 200 mls/hr Q8H RAEANN Administration Protocol Insulin Human Lispro 0 unit 11/22/20 06:00 12/12/20 12:49 Insulin Lispro 100 Unit/Ml SUB-Q 4 unit Q6HR RAEANN Administration Protocol Methylprednisolone Sodium Succinate 20 mg 12/08/20 22:00 12/12/20 10:04 Methylprednisolone Sod Succinate 40 Mg/1 Ml Inj IV 20 mg Q12HR RAEANN Administration Metoclopramide HCl 10 mg 11/15/20 23:55 Metoclopramide 10 Mg/2 Ml Inj IV Q6H PRN Nausea And Vomiting Midazolam HCl 2 mg 11/21/20 21:53 12/11/20 18:54 Midazolam 2 Mg/2 Ml Inj IV 2 mg Q10MIN PRN Administration Sedation Multi-Ingred Cream/Lotion/Oil/Oint 1 applic 11/21/20 21:53 Mineral Oil/Petrolatum, White Ophth Oint 3.5 Gm OU Q4HR PRN Dry Eye(s) Ondansetron HCl 4 mg 11/15/20 23:55 Ondansetron 4 Mg/2 Ml Inj IV Q8H PRN Nausea And Vomiting Senna/Docusate Sodium 2 tab 12/03/20 13:00 12/12/20 10:04 Sennosides/Docusate Sodium 8.6/50 Mg Tab PO 2 tab BID RAEANN Administration Simple Syrup 15 ml 11/23/20 11:53 Simple Syrup 15 Ml FEEDTUBE PRN PRN Hypoglycemia Simple Syrup 30 ml 11/23/20 11:53 Simple Syrup 15 Ml FEEDTUBE PRN PRN Hypoglycemia Sodium Bicarbonate 325 mg 11/23/20 11:53 12/05/20 23:46 Sodium Bicarbonate 325 Mg Tab FEEDTUBE 325 mg PRN PRN Administration For Clogged Feeding Tube Sodium Chloride 10 ml 11/16/20 10:00 12/12/20 10:04 Sodium Chloride 0.9% 10 Ml Flush Syringe IV 10 ml BID RAEANN Administration Sodium Chloride 10 ml 11/15/20 23:55 12/03/20 00:21 Sodium Chloride 0.9% 10 Ml Flush Syringe IV 10 ml PRN PRN Administration LINE FLUSH Nutrition/Malnutrition Assess - Dietary Evaluation Nutrition/Malnutrition Findings: Nutrition Notes Start: 11/20/20 12:03 Freq: Status: Active Protocol: Document 12/09/20 11:11 AL (Rec: 12/09/20 11:25 AL [id number]) Co-Sign 12/09/20 11:11 LP Nutrition Notes Initial or Follow up Reassessment Current Diagnosis Diabetes,Sepsis,Respiratory Failure Other Pertinent Diagnosis Bilat pneu, COVID-19 (+) Current Diet Glucerna 1.2 at 60 ml/hr Labs/Tests Na 134 Cr .3 Pertinent Medications Propofol at 13.05 ml/hr (344 kcal) Solumedrol Senokot S Height 5 ft 6 in Weight 85.4 kg Usual Body Weight 80.5 kg Fancy Gap Body Weight (kg) 64.54 BMI 30.4 Weight Status Overweight Subjective/Other Information F/U for TF tolerance. Pt tolerating TF at 60 ml/hr ( goal rate) Percent of energy/protein needs met: 100%/100% Burn Absent Trauma Absent GI Symptoms Last BM Difficulty In Swallowing,Chewing Food Allergy No Current % PO Negligible Minimum of two criteria Yes Energy Intake (severe) < or equal to 50% Estimated Energy Requirement > or equal to 5 days Interpretation of Weight Loss (severe) >2% in 1 week Fluid Accumulation Moderate to Severe (severe) #3 Nutrition Diagnosis Inadequate oral intake Diagnosis Progress(for reassessment Continues documentation) #2 Nutrition Diagnosis Malnutrition Diagnosis Progress(for reassessment Continues documentation) #1 Nutrition Diagnosis Unintended weight loss Diagnosis Progress(for reassessment Continues documentation) Is patient on ventilator? Yes Is Patient Ambulatory and/or Out of Bed No REE-([facility]-confined to bed) 1944.648 Kcal/Kg value to use for calculation 21 Approximate Energy Requirements Using 1793 kcal/Kg Calculation Used for Recommendations Kcal/kg Additional Notes Protein: 87-145 g/day (1.2-2g/ kg) Fluid: 1ml/kcal or per MD Nutrition Intervention Change Diet Order: Continue TF Nutrition Support: Glucerna 1.2 at 60 ml/hr. Flush 100 ml q4h Kcal 1,728 Protein (gm) 86 Fluid (mL) 1,159 Goal #1 TF tolerance Goal #2 Meet at least 75% of energy and protein needs via TF Anticipated Discharge Needs: Unknown at this time Follow-Up By: 12/16/20 Additional Comments FU for TF tolerance
[2020-12-12] MEDS: MIDAZOLAM 100 MG in SODIUM CHLORIDE 0.9% 80 ML IV SCH (16:02)
[2020-12-12] MEDS: ENOXAPARIN 40 MG/0.4 ML INJ SUB-Q SCH (21:31)
[2020-12-12] MEDS: MIDAZOLAM 2 MG/2 ML INJ IV PRN (23:36)
[2020-12-13] MEDS: CEFEPIME/NS 2 GM/100 ML 2 GM/100 ML BAG IV SCH ×4 (00:34→23:46)
[2020-12-13] MEDS: NORepinephrine/NS 4 MG-250 ML 4 MG/250 ML BAG IV SCH ×2 (03:36→17:20)
[2020-12-13] MEDS: fentaNYL DRIP Premix 2,000 MCG/100 ML BAG IV SCH ×3 (04:53→18:21)
[2020-12-13] MEDS: INSULIN LISPRO 100 UNIT/ML SUB-Q SCH ×4 (05:15→23:46)
--- NOTE | 2020-12-13 08:58 | Progress Note ---
Assessment and Plan Assessment and plan: COVID-19 test positive; 11/16/2020 COVID-19 test positive; 12/13/2020 --Bilateral Covid pneumonia Management per protocols ID pulmonary following --Sepsis secondary to MRSA pneumonia Completed antibiotics, Follow cultures --Acute hypoxic hypercapnic respiratory failure ; requiring intubation and mechanical ventilation Continue ventilatory support, pulmonary critical following Wean as tolerated and extubate, nebulizers IV steroids ID and pulmonary critical following Home oxygen evaluation when patient is stable --Bilateral pneumothorax; status post bilateral chest tube placement Mild improvement, chest tubes in place ,continue supportive care, surgery pulmonary following --Pneumomediastinum, subcutaneous emphysema, Continue supportive care, surgery following --Leukocytosis --Type II Diabetes Mellitus Accu-Chek sliding scale coverage ADA diet Long-acting insulin as needed 12/05: Patient continues on full ventilatory support per labor relations manager PEEP remains at 18. Still with hypercapnic respiratory failure. FiO2 down to 60% this morning. Chest tube to suction still weaning off steroids in the deliberation ongoing for possible a third chest tube as last documentation by surgery shows no plan for it at this time. Continue to manage insulin for better blood sugar control. 12/06:weaned down to 60%, continue supportive care, unable to wean, 12/07; patient remains intubated on ventilatory support, chest tubes in place trach and PEG when patient's Covid test is negative,Per surgery. 12/08; Patient remains intubated remains with hypercapnia and hypoxia. Chest tube still remain in place. He is off antibiotics at this time. Continue steroids which is likely resultant to the leukocytosis. Allergy Nurse and surgeon following ID input is noted. Prognosis remains guarded to poor 12/10; patient remains intubated on vent, unable to wean awaiting trach and PEG when Covid test is negative, Continue current management 12/11; patient awaiting trach and PEG when Covid test is negative, vent dependent, poor prognosis 12/12; clinically no change, vent dependent Patient is critically ill with very poor prognosis, awaiting trach and PEG when COVID-19 test turns negative Plan discussed with nursing staff. Caregivers have discussed with patient's family periodically The high probability of a clinically significant, sudden or life threatening deterioration of the [pulmonary] system(s) required my full and direct attention, intervention and personal management. The aggregate critical care time was [33] minutes. This time is in addition to time spent performing reported procedures but includes the following: [X] Data Review and interpretation [X] Patient assessment and monitoring of vital signs [X] Documentation [X] Medication orders and management Plan of care reviewed with the patient's nurse and the case management History Interval history: I have seen and examined the patient at the bedside Follow isolation precautions and PPE protocols per COVID-19 guidelines Remains intubated vent dependent Awaiting trach and PEG when COVID-19 is negative Vital signs reviewed Hospitalist Physical - Constitutional Vitals: Temp Pulse Resp BP Pulse Ox 98.9 F 59 L 30 H 83/47 100 12/13/20 08:31 12/13/20 07:43 12/13/20 06:00 12/13/20 07:43 12/13/20 07:43 General appearance: Present: mild distress, well-nourished, obese, other (Vent dependent) - EENT Eyes: Present: PERRL, EOM intact - Neck Neck: Present: supple, normal ROM - Respiratory Respiratory effort: labored Respiratory: bilateral: diminished, rhonchi, negative: rales, wheezing - Cardiovascular Rhythm: regular Heart Sounds: Present: S1 & S2 - Extremities Extremities: no ischemia, No edema - Abdominal General gastrointestinal: soft, non-tender, non-distended, normal bowel sounds - Integumentary Integumentary: Present: clear, warm - Psychiatric Psychiatric: other (Intubated on vent) - Neurologic Neurologic: other (Intubated on vent) HEART Score - HEART Score Troponin: Troponin T < 0.010 ng/mL (0.00-0.029) 12/11/20 06:30 Results - Labs CBC & Chem 7: 12/13/20 11:30 12/13/20 11:30 Labs: Laboratory Last Values WBC 13.5 K/mm3 (4.5-11.0) H 12/09/20 06:40 RBC 3.28 M/mm3 (3.65-5.03) L 12/09/20 06:40 Hgb 9.7 gm/dl (11.8-15.2) L 12/09/20 06:40 Hct 29.9 % (35.5-45.6) L 12/09/20 06:40 MCV 91 fl (84-94) 12/09/20 06:40 MCH 30 pg (28-32) 12/09/20 06:40 MCHC 32 % (32-34) 12/09/20 06:40 RDW 14.8 % (13.2-15.2) 12/09/20 06:40 Plt Count 165 K/mm3 (140-440) 12/09/20 06:40 Lymph % (Auto) 2.0 % (13.4-35.0) L 11/27/20 06:25 Esmeralda % (Auto) 5.2 % (0.0-7.3) 11/27/20 06:25 Eos % (Auto) 0.0 % (0.0-4.3) 11/27/20 06:25 Baso % (Auto) 0.1 % (0.0-1.8) 11/27/20 06:25 Lymph # (Auto) 0.3 K/mm3 (1.2-5.4) L 11/27/20 06:25 Esmeralda # (Auto) 0.7 K/mm3 (0.0-0.8) 11/27/20 06:25 Eos # (Auto) 0.0 K/mm3 (0.0-0.4) 11/27/20 06:25 Baso # (Auto) 0.0 K/mm3 (0.0-0.1) 11/27/20 06:25 Add Manual Diff Complete 12/08/20 06:10 Total Counted 100 12/08/20 06:10 Seg Neutrophils % Programs Assistant 12/08/20 06:10 Seg Neuts % (Manual) 95.0 % (40.0-70.0) H 12/08/20 06:10 Band Neutrophils % 2.0 % 12/02/20 02:14 Lymphocytes % (Manual) 3.0 % (13.4-35.0) L 12/08/20 06:10 Monocytes % (Manual) 2.0 % (0.0-7.3) 12/08/20 06:10 Nucleated RBC % Not Reportable 12/08/20 06:10 Seg Neutrophils # 12.7 K/mm3 (1.8-7.7) H 11/27/20 06:25 Seg Neutrophils # Man 11.4 K/mm3 (1.8-7.7) H 12/08/20 06:10 Band Neutrophils # 0.0 K/mm3 12/08/20 06:10 Lymphocytes # (Manual) 0.4 K/mm3 (1.2-5.4) L 12/08/20 06:10 Abs React Lymphs (Man) 0.0 K/mm3 12/08/20 06:10 Monocytes # (Manual) 0.2 K/mm3 (0.0-0.8) 12/08/20 06:10 Eosinophils # (Manual) 0.0 K/mm3 (0.0-0.4) 12/08/20 06:10 Basophils # (Manual) 0.0 K/mm3 (0.0-0.1) 12/08/20 06:10 Metamyelocytes # 0.0 K/mm3 12/08/20 06:10 Myelocytes # 0.0 K/mm3 12/08/20 06:10 Promyelocytes # 0.0 K/mm3 12/08/20 06:10 Blast Cells # 0.0 K/mm3 12/08/20 06:10 WBC Morphology Not Reportable 12/08/20 06:10 Hypersegmented Neuts Not Reportable 12/08/20 06:10 Hyposegmented Neuts Not Reportable 12/08/20 06:10 Hypogranular Neuts Not Reportable 12/08/20 06:10 Smudge Cells Not Reportable 12/08/20 06:10 Toxic Granulation Not Reportable 12/08/20 06:10 Toxic Vacuolation Not Reportable 12/08/20 06:10 Dohle Bodies Not Reportable 12/08/20 06:10 Pelger-Huet Anomaly Not Reportable 12/08/20 06:10 Tony Rods Not Reportable 12/08/20 06:10 Platelet Estimate Consistent w auto 12/08/20 06:10 Clumped Platelets Not Reportable 12/08/20 06:10 Plt Clumps, EDTA Not Reportable 12/08/20 06:10 Large Platelets Not Reportable 12/08/20 06:10 Giant Platelets Not Reportable 12/08/20 06:10 Platelet Satelliting Not Reportable 12/08/20 06:10 Plt Morphology Comment Not Reportable 12/08/20 06:10 RBC Morphology Not Reportable 12/08/20 06:10 Dimorphic RBCs Not Reportable 12/08/20 06:10 Polychromasia Not Reportable 12/08/20 06:10 Hypochromasia 1+ 12/08/20 06:10 Poikilocytosis Not Reportable 12/08/20 06:10 Anisocytosis Not Reportable 12/08/20 06:10 Microcytosis Not Reportable 12/08/20 06:10 Macrocytosis Not Reportable 12/08/20 06:10 Spherocytes Not Reportable 12/08/20 06:10 Pappenheimer Bodies Not Reportable 12/08/20 06:10 Sickle Cells Not Reportable 12/08/20 06:10 Target Cells Not Reportable 12/08/20 06:10 Tear Drop Cells Not Reportable 12/08/20 06:10 Ovalocytes Not Reportable 12/08/20 06:10 Stomatocytes 1+ 12/03/20 04:35 Helmet Cells Not Reportable 12/08/20 06:10 [place] Bodies Not Reportable 12/08/20 06:10 [place] Rings Not Reportable 12/08/20 06:10 Henrry Cells Not Reportable 12/08/20 06:10 Bite Cells Not Reportable 12/08/20 06:10 Crenated Cell Not Reportable 12/08/20 06:10 Elliptocytes Not Reportable 12/08/20 06:10 Acanthocytes (Spur) Not Reportable 12/08/20 06:10 Rouleaux Not Reportable 12/08/20 06:10 Hemoglobin C Crystals Not Reportable 12/08/20 06:10 Schistocytes Not Reportable 12/08/20 06:10 Malaria parasites Not Reportable 12/08/20 06:10 Yovani Bodies Not Reportable 12/08/20 06:10 Hem Pathologist Commnt No 12/08/20 06:10 D-Dimer 926.11 ng/mlDDU (0-234) H 11/26/20 06:04 ABG pH 7.390 (7.320-7.450) 12/13/20 03:36 POC ABG pCO2 61.5 mmHg (32.0-48.0) H 12/13/20 03:36 ABG pCO2 81.3 mm Hg 12/08/20 04:12 POC ABG pO2 77.6 mmHg (83-108) L 12/13/20 03:36 ABG pO2 69.7 mm Hg (80.0-90.0) L 12/08/20 04:12 POC ABG HCO3 36.4 12/13/20 03:36 ABG HCO3 50.1 mmol/L (20.0-26.0) H 12/08/20 04:12 ABG O2 Saturation 95.4 % (95.0-99.0) 12/08/20 04:12 ABG O2 Content 13.0 (0.0-44) 12/07/20 05:20 POC ABG Base Excess 9.7 12/13/20 03:36 ABG Base Excess 21.6 mmol/L (-2.0-3.0) H 12/08/20 04:12 ABG Hemoglobin 10.2 (12.0-17.5) L 12/13/20 03:36 ABG Oxyhemoglobin 94 (94-98) 12/13/20 03:36 ABG Carboxyhemoglobin 2.0 % (0.0-5.0) 12/08/20 04:12 ABG Methemoglobin 0.3 (0.0-1.5) 12/13/20 03:36 ABG Sodium 127.5 mmol/L (136.0-145.0) L 12/13/20 03:36 ABG Potassium 4.5 mmol/L (3.40-4.50) 12/13/20 03:36 ABG Chloride 91.0 mmol/L (98-107) L 12/13/20 03:36 ABG Glucose 232 mg/dL (65-95) H 12/13/20 03:36 Oxyhemoglobin 93.2 % (95.0-99.0) L 12/08/20 04:12 Carboxyhemoglobin 0.8 (0.5-1.5) 12/13/20 03:36 FiO2 100 12/13/20 03:36 Sodium 135 mmol/L (137-145) L 12/09/20 06:40 Potassium 4.3 mmol/L (3.6-5.0) 12/09/20 06:40 Chloride 89.5 mmol/L (98-107) L 12/09/20 06:40 Carbon Dioxide 52 mmol/L (22-30) H* 12/09/20 06:40 Anion Gap -2 mmol/L 12/09/20 06:40 BUN 14 mg/dL (9-20) 12/09/20 06:40 Creatinine 0.3 mg/dL (0.8-1.3) L 12/09/20 06:40 Estimated GFR > 60 ml/min 12/09/20 06:40 BUN/Creatinine Ratio 47 % 12/09/20 06:40 Glucose 114 mg/dL (75-100) H 12/09/20 06:40 POC Glucose 176 mg/dL (70-105) H 12/12/20 23:18 Hemoglobin A1c 11.7 % (4-6) H 11/16/20 05:29 Lactic Acid 2.60 mmol/L (0.7-2.0) H* 11/16/20 05:29 Calcium 7.6 mg/dL (8.4-10.2) L 12/09/20 06:40 Phosphorus 2.90 mg/dL (2.5-4.5) 12/04/20 Unknown Magnesium 1.90 mg/dL (1.7-2.3) 12/04/20 Unknown Ferritin 778.8 ng/mL (30.0-300.0) H 11/26/20 04:00 Total Bilirubin 0.30 mg/dL (0.1-1.2) 12/06/20 04:31 AST 48 units/L (5-40) H 12/06/20 04:31 ALT 91 units/L (7-56) H 12/06/20 04:31 Alkaline Phosphatase 140 units/L (35-129) H 12/06/20 04:31 Lactate Dehydrogenase 288 units/L (91-180) H 11/26/20 04:00 Troponin T < 0.010 ng/mL (0.00-0.029) 12/11/20 06:30 C-Reactive Protein 1.40 mg/dL (0.00-1.30) H 11/26/20 04:00 NT-Pro-B Natriuret Pep 107.2 pg/mL (0-900) 11/17/20 10:21 Total Protein 5.7 g/dL (6.3-8.2) L 12/06/20 04:31 Albumin 2.6 g/dL (3.9-5) L 12/06/20 04:31 Albumin/Globulin Ratio 0.8 % 12/06/20 04:31 Triglycerides 150 mg/dL (2-149) H 12/12/20 05:16 Procalcitonin 0.16 ng/mL (<0.15) 12/12/20 05:16 Arterial Blood Glucose 232 mg/dL (65-95) H 12/13/20 03:36 Arterial Blood Ionized Calcium 4.2 mg/dL (4.6-5.3) L 12/13/20 03:36 Urine Color Faustina (Yellow) 11/16/20 01:45 Urine Turbidity Slightly-cloudy (Clear) 11/16/20 01:45 Urine pH 6.0 (5.0-7.0) 11/16/20 01:45 Ur Specific [place] 1.037 (1.003-1.030) H 11/16/20 01:45 Urine Protein 30 mg/dl mg/dL (Negative) 11/16/20 01:45 Urine Glucose (UA) >=500 mg/dL (Negative) 11/16/20 01:45 Urine Ketones 20 mg/dL (Negative) 11/16/20 01:45 Urine Blood Neg (Negative) 11/16/20 01:45 Urine Nitrite Neg (Negative) 11/16/20 01:45 Urine Bilirubin Neg (Negative) 11/16/20 01:45 Urine Urobilinogen 2.0 mg/dL (<2.0) 11/16/20 01:45 Ur Leukocyte Esterase Neg (Negative) 11/16/20 01:45 Urine WBC (Auto) 2.0 /HPF (0.0-6.0) 11/16/20 01:45 Urine RBC (Auto) 1.0 /HPF (0.0-6.0) 11/16/20 01:45 Urine Bacteria (Auto) 1+ /HPF (Negative) 11/16/20 01:45 Urine Mucus 3+ /HPF 11/16/20 01:45 Vancomycin Trough 4.0 ug/mL (5.0-20.0) L 11/29/20 15:40 Coronavirus (PCR) Positive (Negative) A 11/16/20 Unknown Microbiology: Microbiology 12/09/20 13:10 Tracheal Aspirate Sputum Culture - Final Klebsiella Pneumoniae 12/09/20 10:05 Urine,[place] Urine Culture - Final Emma Albicans 12/09/20 11:37 Peripheral/Venous Blood Culture - Preliminary NO GROWTH AFTER 72 HOURS 12/09/20 11:37 Peripheral/Venous Blood Culture - Preliminary NO GROWTH AFTER 72 HOURS - Diagnostic Impressions Diagnostic Impressions: Echocardiogram 11/16/20 10:34 Transthoracic Echocardiogram Indication: Shortness of breath-COVID BP: 108/77 HR: 92 Conclusions *Global left ventricular systolic function is normal. *The estimated ejection fraction is 60-65%. *Mild to moderate concentric left ventricular hypertrophy is observed. *There is trace of mitral regurgitation. *There is mild to moderate tricuspid regurgitation. *There is evidence of mild pulmonary hypertension. *The right ventricular systolic pressure is calculated at 31 mmHg. Findings Left Ventricle: The left ventricular chamber size is normal. Mild to moderate concentric left ventricular hypertrophy is observed. Global left ventricular systolic function is normal. The estimated ejection fraction is 60-65%. Left Atrium: The left atrial chamber size is normal. Right Ventricle: The right ventricular cavity size is normal. The right ventricular global systolic function is normal. Right Atrium: The right atrial cavity size is normal. Aortic Valve: The aortic valve is trileaflet. There is no evidence of aortic regurgitation. There is no evidence of aortic stenosis. Mitral Valve: The mitral valve leaflets appear normal. There is trace of mitral regurgitation. There is no evidence of mitral stenosis. Tricuspid Valve: The tricuspid valve leaflets are normal. There is mild to moderate tricuspid regurgitation. The right ventricular systolic pressure is calculated at 31 mmHg. There is evidence of mild pulmonary hypertension. Pulmonic Valve: There is trace pulmonic regurgitation. Pericardium: There is no pericardial effusion. Aorta: There is no dilatation of the ascending aorta. There is no dilatation of the aortic root. Venous: The inferior vena cava appears normal in size. Measurements Chambers 2D Name Value Normal Range IVSd (2D) 0.81 cm (0.6 - 1.1) LVPWd (2D) 0.79 cm (0.6 - 1.1) LVIDd (2D) 4.22 cm (3.7 - 5.6) LVIDs (2D) 3.1 cm (2 - 3.8) LV FS (2D) 26.71 % - EF Teichholz (2D) 52.55 % - Ao root diameter (2D) 3.34 cm (2 - 3.7) Volumes/Mass Name Value Normal Range LA ESV SP 4CH (A/L) 10.87 ml - LA ESV SP 2CH (A/L) 18.74 ml - LA ESV BP (A/L) 16.38 ml - LA ESV BP (A/L) index 8.62 ml/m2 - LA ESV SP 4CH (MOD) 10.32 ml - LA ESV SP 2CH (MOD) 17.66 ml - LA ESV BP (MOD) 15.12 ml - LA ESV BP (MOD) index 7.96 ml/m2 - Diastolic/Systolic Function Name Value Normal Range MV E-wave Vmax 0.76 m/sec - MV deceleration time 133.63 msec - MV A-wave Vmax 1.1 m/sec - MV E:A ratio 0.69 ratio - Aortic Valve Name Value Normal Range AV Vmax 1.44 m/sec - AV VTI 22.94 cm - AV peak gradient 8.33 mmHg - AV mean gradient 4.73 mmHg - LVOT diameter 2.2 cm - LVOT Vmax 1.04 m/sec - LVOT VTI 18.88 cm - LVOT peak gradient 4.34 mmHg - LVOT mean gradient 2.31 mmHg - SV LVOT 72.05 ml - EVANGELISTA (continuity Vmax) 2.75 cm2 - EVANGELISTA (continuity VTI) 3.14 cm2 - Tricuspid Valve Name Value Normal Range TR Vmax 2.64 m/sec - TR peak gradient 28 mmHg - RAP 3 mmHg - RVSP 31 mmHg - Gupta/IV: Voiding Method Indwelling Catheter IV Catheter Type [Left Peripheral IV Antecubital] Active Medications - Current Medications Current Medications: Generic Name Dose Route Start Last Admin Trade Name Deisy PRN Reason Stop Dose Admin Acetaminophen 650 mg 11/15/20 23:55 12/09/20 00:14 Acetaminophen 325 Mg Tab PO 650 mg Q4H PRN Administration Pain MILD(1-3)/Fever >100.5/BUTTS Lipase/Protease/Amylase 1 each 11/23/20 11:53 12/05/20 23:45 Lipase 10,500/Protease 25,000/Amylase 43,750 (Units) Dr Cap FEEDTUBE 1 each PRN PRN Administration For Clogged Feeding Tube Dextrose 25 ml 12/10/20 05:21 12/10/20 05:24 Dextrose 50% In Water (25gm) 50 Ml Syringe IV 25 ml Q30MIN PRN Administration Hypoglycemia Protocol Enoxaparin Sodium 40 mg 12/03/20 22:00 12/12/20 21:31 Enoxaparin 40 Mg/0.4 Ml Inj SUB-Q 40 mg QDAY@2200 RAEANN Administration Famotidine 20 mg 11/22/20 22:00 12/12/20 21:30 Famotidine 20 Mg/2 Ml Inj IV 20 mg BID RAEANN Administration Fentanyl 50 mcg 11/21/20 21:53 12/11/20 18:54 Fentanyl 100 Mcg/2 Ml Inj IV 50 mcg Q10MIN PRN Administration ANALGESIA Hydrophilic Ointment 1 applic 11/21/20 21:53 11/30/20 21:33 Lip Therapy Vaseline TP 1 applic Q2HR PRN Administration Dry Lips Fentanyl Citrate 2,000 mcg in 100 mls @ 3.625 mls/hr 11/21/20 22:00 12/13/20 04:53 Fentanyl Drip Premix IV 4 mcg/kg/hr TITR RAEANN 14.5 mls/hr Administration Protocol 1 MCG/KG/HR Midazolam HCl 100 mg/ Sodium 100 mls @ 2 mls/hr 11/21/20 22:00 12/12/20 16:02 Chloride IV 5 mg/hr TITR RAEANN 5 mls/hr Administration Protocol 2 MG/HR Norepinephrine 4 mg in 250 mls @ 7.5 mls/hr 11/22/20 17:00 12/13/20 03:36 Levophed Drip 4 Mg/Ns 250 Ml IV 4 mcg/min TITR RAEANN 15 mls/hr Administration Protocol 2 MCG/MIN Propofol 1,000 mg in 100 mls @ 2.175 mls/hr 11/27/20 12:00 12/11/20 17:55 Diprivan 10 Mg/Ml IV 0 mcg/kg/min TITR RAEANN 0 mls/hr Titration Protocol 5 MCG/KG/MIN Dexmedetomidine HCl 400 mcg/ 104 mls @ 4.441 mls/hr 12/10/20 13:00 12/13/20 07:14 Sodium Chloride IV 0.9 mcg/kg/hr TITRATE RAEANN 19.984 mls/hr Administration Protocol 0.2 MCG/KG/HR Cefepime HCl 2 gm in 100 mls @ 200 mls/hr 12/11/20 16:00 12/13/20 08:25 Cefepime/Ns 2 Gm/100 Ml IV 200 mls/hr Q8H RAEANN Administration Protocol Insulin Human Lispro 0 unit 11/22/20 06:00 12/13/20 05:15 Insulin Lispro 100 Unit/Ml SUB-Q 4 unit Q6HR RAEANN Administration Protocol Methylprednisolone Sodium Succinate 20 mg 12/08/20 22:00 12/12/20 21:29 Methylprednisolone Sod Succinate 40 Mg/1 Ml Inj IV 20 mg Q12HR RAEANN Administration Metoclopramide HCl 10 mg 11/15/20 23:55 Metoclopramide 10 Mg/2 Ml Inj IV Q6H PRN Nausea And Vomiting Multi-Ingred Cream/Lotion/Oil/Oint 1 applic 11/21/20 21:53 Mineral Oil/Petrolatum, White Ophth Oint 3.5 Gm OU Q4HR PRN Dry Eye(s) Ondansetron HCl 4 mg 11/15/20 23:55 Ondansetron 4 Mg/2 Ml Inj IV Q8H PRN Nausea And Vomiting Senna/Docusate Sodium 2 tab 12/03/20 13:00 12/12/20 21:44 Sennosides/Docusate Sodium 8.6/50 Mg Tab PO Not Given BID RAEANN Simple Syrup 15 ml 11/23/20 11:53 Simple Syrup 15 Ml FEEDTUBE PRN PRN Hypoglycemia Simple Syrup 30 ml 11/23/20 11:53 Simple Syrup 15 Ml FEEDTUBE PRN PRN Hypoglycemia Sodium Bicarbonate 325 mg 11/23/20 11:53 12/05/20 23:46 Sodium Bicarbonate 325 Mg Tab FEEDTUBE 325 mg PRN PRN Administration For Clogged Feeding Tube Sodium Chloride 10 ml 11/16/20 10:00 12/12/20 21:45 Sodium Chloride 0.9% 10 Ml Flush Syringe IV 10 ml BID RAEANN Administration Sodium Chloride 10 ml 11/15/20 23:55 12/03/20 00:21 Sodium Chloride 0.9% 10 Ml Flush Syringe IV 10 ml PRN PRN Administration LINE FLUSH Nutrition/Malnutrition Assess - Dietary Evaluation Nutrition/Malnutrition Findings: Nutrition Notes Start: 11/20/20 12:03 Freq: Status: Active Protocol: Document 12/09/20 11:11 AL (Rec: 12/09/20 11:25 AL [id number]) Co-Sign 12/09/20 11:11 LP Nutrition Notes Initial or Follow up Reassessment Current Diagnosis Diabetes,Sepsis,Respiratory Failure Other Pertinent Diagnosis Bilat pneu, COVID-19 (+) Current Diet Glucerna 1.2 at 60 ml/hr Labs/Tests Na 134 Cr .3 Pertinent Medications Propofol at 13.05 ml/hr (344 kcal) Solumedrol Senokot S Height 5 ft 6 in Weight 85.4 kg Usual Body Weight 80.5 kg [place] Body Weight (kg) 64.54 BMI 30.4 Weight Status Overweight Subjective/Other Information F/U for TF tolerance. Pt tolerating TF at 60 ml/hr ( goal rate) Percent of energy/protein needs met: 100%/100% Burn Absent Trauma Absent GI Symptoms Last BM Difficulty In Swallowing,Chewing Food Allergy No Current % PO Negligible Minimum of two criteria Yes Energy Intake (severe) < or equal to 50% Estimated Energy Requirement > or equal to 5 days Interpretation of Weight Loss (severe) >2% in 1 week Fluid Accumulation Moderate to Severe (severe) #3 Nutrition Diagnosis Inadequate oral intake Diagnosis Progress(for reassessment Continues documentation) #2 Nutrition Diagnosis Malnutrition Diagnosis Progress(for reassessment Continues documentation) #1 Nutrition Diagnosis Unintended weight loss Diagnosis Progress(for reassessment Continues documentation) Is patient on ventilator? Yes Is Patient Ambulatory and/or Out of Bed No REE-([facility]-confined to bed) 1944.648 Kcal/Kg value to use for calculation 21 Approximate Energy Requirements Using 1793 kcal/Kg Calculation Used for Recommendations Kcal/kg Additional Notes Protein: 87-145 g/day (1.2-2g/ kg) Fluid: 1ml/kcal or per MD Nutrition Intervention Change Diet Order: Continue TF Nutrition Support: Glucerna 1.2 at 60 ml/hr. Flush 100 ml q4h Kcal 1,728 Protein (gm) 86 Fluid (mL) 1,159 Goal #1 TF tolerance Goal #2 Meet at least 75% of energy and protein needs via TF Anticipated Discharge Needs: Unknown at this time Follow-Up By: 12/16/20 Additional Comments FU for TF tolerance
[2020-12-13] MEDS: SENNOSIDES/DOCUSATE SODIUM 8.6/50 MG TAB PO SCH ×2 (10:05→21:11)
[2020-12-13] MEDS: methylPREDNISolone Sod Succinate 40 MG/1 ML INJ IV SCH ×2 (10:05→21:10)
[2020-12-13] MEDS: FAMOTIDINE 20 MG/2 ML INJ IV SCH ×2 (10:05→21:11)
--- NOTE | 2020-12-13 11:13 | Progress Note ---
Assessment and Plan 59 y/o male with acute respiratory failure, abnormal CXR and abnormal lab studies. 12/13/20: WIll start Weaning FiO2 again tomorrow morning of PaO2 remains this good. Continue all other supportive measures. Guarded prognosis. Monitor r enal function closely. 12/12/20: Long discussion with brother at door. Patient remains full code which is not unreasonable but family is realistic about outcome being poor. Will continue all supportive measures. IF clinical state worsens, will ask family to come back to see patient. Guarded Prognosis. 12/11/20: Will attempt to wean Diprovan off and increase precedex. Triglycerides were ok. IF we have to support with pressors we will but I have asked nursing to please be detailed in their checkouts as to why they did certain things with the continuous drips. Continue supportive measures. Brother is going to try to come and see him from [place] 12/10/20: No acute events overnight. Patient has had waxing and waning of the amount of oxygen he has required over the last 24-72 hours. I have a bad feeling that he is on the brink of cardiac arrest and this could happen at any moment. I am going to reach out to the brother today to explain to him my concerns. Patient is a full code. Very very guarded prognosis. 12/09/20: Repeat ABG later today. Wean FiO2 for sats >88%. Repeat CXR as well. With BP dropping could be relative adrenal insufficiency, will watch for now, however if pressor requirement increases would consider stress dose steroids and maybe volume replacement. Follow up cultures. Guarded prognosis. 12/08/20: Increase TV to 425. Drop FiO2 to 65% and wean for sats >88%. COntinue chest tubes. Change steroids to 20q12. 12/07/20: CXR is stable, no indication for another chest tube at this time. Will repeat ABG in 1 hour post change to 70% and wean accordingly. Dropping steroids to 20q8. Guarded prognosis. Same weaning parameters apply today as of 12/04/20 12/04/20: Continue to wean steroids to off. Continue to wean FiO2 for sats >88%. Keep PEEP at current level, would not feel comfortable weaning PEEP until FiO2 at 35-40%. Continue chest tubes to suction. PaO2 of >55, pH of >7.2 and sats >88% are acceptable. : Dropped steroids down to 40q8 and will start to wean from there. Continue to slowly wean FiO2 first, keep PEEP at current level. Spoke with Kehinde, please see my event note, who is the biological brother. He had no questions but thanked us for our care. Prognosis remains very very guarded. PaO2 of 55 and pH of >7.2 and sats of >88% are all acceptable. 12/02/20: Wean FiO2 for sats >88% and PaO2 >55. Unable to prone currently secondary to bilateral chest tubes. COntinue high dose steroids. CM To figure out who is the immediate next of kin that can make decisions and then we will discuss the current clinical situation with them. 12/01/20: Continue PEEP and FiO2 elevated to keep sats >88% and PaO2 >55. Small lung volumes and high PEEP. very very guarded prognosis. 11/30/20: Worsening hypoxemia. Chest tubes stable. Likely just worsening disease. Unable to prone now. Increase PEEP to 18 and FiO2 back up to 100. Continue 3 sedatives for RASS of -2. Obtain 12 lead to look at T waves as K was only 4.6 on yesterday. Guarded, guarded prognosis 11/29/20: Second chest tube in on yesterday. CXR is stable. ABG unchanged. Will likely increase PEEP now that chest tubes are in. No further paralytics. Still making good urine. Prognosis remains guarded. Will check chemistry to assess Potassium levels given peaked t's seen on monitor. 11/28/20: Second chest tube today. Once chest tube in, will likely increase PEEP to 18 and repeat gas about 2 hours after this. Continue paralytic today. No proning now that patient will have bilateral chest tubes. VEry guarded prognosis. 11/27/20: Spoke with surgery who have agreed to evaluate and placed chest tube on either right or left side pending CXR reading. Will monitor for 36-48 hours and if no resolution, will need chest tube placed on opposite side as well. Once placed, will likely paralyze again but hold on proning for now. Guarded prognosis. 11/26/20: Paralytics are off. Continue current level of sedation. Will prone for 12 hours today and repeat ABG in the am. Continue lung protective strategy. Guarded prognosis. 11/25/20: Prone again to 16 hours, will prone at 12-12:30. Continue paralytics for 24 more hours. Discussed the idea of permissive hypercapnea again today and as long as pH is above 7.2 no changes should be made to TV and or RR without discussing with physician. Continue to monitor urine output, guarded prognosis. Hold on lasix therapy today. 11/24/20: Prone again today. Will try 48 hours of paralyzing the patient to see if this will help with oxygenation. Will speak with RT's about permissive hypercapnea and that pH's of 7.2 and greater are ok. Continue high doses steroids. Prognosis is still very very guarded. If not improvement with paralytics, will attempt transfer. 11/23/20: Prone again today for 12 hours. Continue High Dose steroids. Hold on lasix given marginal BP's. Prognosis is very very guarded to poor. Will continue all supportive measures. If not able to wean from 100%, will attempt transfer for ECMO. 11/20/20: WIll change to solumedrol 60q6 today. Hold on lasix today. Given his increasing oxygen requirement, will likely end up intubated. OVerall prognosis is very poor. 11/19/20: lasix 40mg IV x1 today. Will speak with ID but may consider increasing steroids to see if this will help with oxygenation. Continue Remdesivir. Pr ognosis remains guarded. 11/18/20: Continue bipap, goal is to attempt to prevent prolong intubation for as long as possible. Lasix again today. Steroids and Remdesivir. Guarded Prognosis. 11/17/20: Continue bipap therapy. Monitor mental state. High risk for Intubation. Continue BID anticoagulation. Prone if able. BNP was elevated but not grossly elevated. Will still give lasix with hopes of achieving net negative state. STeroids and remdesivir. Overall prognosis is guarded, extremely guarded. 1. Pulm- Agree with concern for covid. Agree with empiric abx but procal is only mildly elevated. Await cultures. Continue bipap therapy for now but will need to monitor closely. [facility] has ordered CTA, but I spoke with pharmacy and we will empirically treat with BID lovenox therapy. COntinue empiric steroid therapy for COVID until studies back. Not sure that he will be able to prone on bipap therapy. Monitor volume status and run as dry as possible. 2. Renal-normal function but all electrolytes abnormal. HYponatremia and Hypochloremia volume up vs volume down. Sent BNP. Would suggest obtaning echo as well. Not sure what to make of elevated lactate unless that is from increased work of breathing or damage to other tissue unknown. May need to check LFT's and Coags as well. 3. Guarded Prognosis. CCT 31 minutes. Subjective Date of service: 12/13/20 Principal diagnosis: COVID-19 Interval history: No acute events. Clinically no changes. Still on 100%. PaO2 was 78 this am. Objective Vital Signs - 12hr 12/12/20 12/12/20 12/12/20 23:26 23:27 23:30 Temperature 98.6 F Pulse Rate 97 H 105 H Pulse Rate [ From Monitor] Respiratory 27 H Rate Blood Pressure 164/92 163/90 O2 Sat by Pulse 96 95 Oximetry 12/12/20 12/13/20 12/13/20 23:50 00:00 00:30 Temperature Pulse Rate 103 H 103 H 114 H Pulse Rate [ 102 H From Monitor] Respiratory 26 H 26 H 27 H Rate Blood Pressure 143/90 152/81 162/89 O2 Sat by Pulse 94 94 94 Oximetry 12/13/20 12/13/20 12/13/20 01:00 01:30 02:00 Temperature Pulse Rate 114 H 105 H 93 H Pulse Rate [ From Monitor] Respiratory 27 H 25 H 22 Rate Blood Pressure 140/88 146/93 100/65 O2 Sat by Pulse 96 97 97 Oximetry 12/13/20 12/13/20 12/13/20 02:30 03:00 03:24 Temperature 100.9 F H Pulse Rate 85 73 Pulse Rate [ From Monitor] Respiratory 18 15 Rate Blood Pressure 77/42 73/41 O2 Sat by Pulse 97 99 Oximetry 12/13/20 12/13/20 12/13/20 03:30 03:35 04:00 Temperature Pulse Rate 69 66 62 Pulse Rate [ 63 From Monitor] Respiratory 15 18 Rate Blood Pressure 84/47 82/47 102/61 O2 Sat by Pulse 100 100 100 Oximetry 12/13/20 12/13/20 12/13/20 04:30 05:00 05:30 Temperature Pulse Rate 65 52 L 64 Pulse Rate [ From Monitor] Respiratory 20 28 H 15 Rate Blood Pressure 99/61 125/72 97/57 O2 Sat by Pulse 100 93 100 Oximetry 12/13/20 12/13/20 12/13/20 06:00 06:30 07:00 Temperature Pulse Rate 60 58 L 57 L Pulse Rate [ From Monitor] Respiratory 30 H 30 H 30 H Rate Blood Pressure 99/60 96/56 98/56 O2 Sat by Pulse 100 100 100 Oximetry 12/13/20 12/13/20 12/13/20 07:30 07:43 08:00 Temperature Pulse Rate 59 L 59 L 56 L Pulse Rate [ 63 From Monitor] Respiratory 30 H 30 H Rate Blood Pressure 83/47 83/47 87/52 O2 Sat by Pulse 100 100 100 Oximetry 12/13/20 12/13/20 12/13/20 08:30 08:31 09:00 Temperature 98.9 F Pulse Rate 54 L 52 L Pulse Rate [ From Monitor] Respiratory 30 H 30 H Rate Blood Pressure 115/68 112/66 O2 Sat by Pulse 100 100 Oximetry 12/13/20 12/13/20 12/13/20 09:30 10:00 10:30 Temperature Pulse Rate 52 L 56 L 81 Pulse Rate [ From Monitor] Respiratory 30 H 14 16 Rate Blood Pressure 113/66 111/60 145/85 O2 Sat by Pulse 100 96 98 Oximetry Constitutional: other (on vent orally intubated) ENT: other (Now intubated) Ascultation: Bilateral: rales, rhonchi Percussion: Bilateral: not dull Cardiovascular: regular rate and rhythm Gastrointestinal: soft, non-tender Neurologic: other (on vent) CBC and BMP: 12/09/20 06:40 12/09/20 06:40 ABG, PT/INR, D-dimer: ABG ABG pH 7.390 (7.320-7.450) 12/13/20 03:36 POC ABG pCO2 61.5 mmHg (32.0-48.0) H 12/13/20 03:36 ABG pCO2 81.3 mm Hg 12/08/20 04:12 POC ABG pO2 77.6 mmHg (83-108) L 12/13/20 03:36 ABG pO2 69.7 mm Hg (80.0-90.0) L 12/08/20 04:12 POC ABG HCO3 36.4 12/13/20 03:36 ABG O2 Saturation 95.4 % (95.0-99.0) 12/08/20 04:12 PT/INR, D-dimer D-Dimer 926.11 ng/mlDDU (0-234) H 11/26/20 06:04 Abnormal lab findings: Abnormal Labs 11/15/20 11/15/20 11/15/20 10:39 10:39 10:39 WBC 14.3 H RBC 5.17 H Hgb Hct Plt Count Lymph % (Auto) 7.8 L [place] % (Auto) 7.6 H Lymph # (Auto) 1.1 L [place] # (Auto) 1.1 H Baso # (Auto) Seg Neutrophils % 83.3 H Seg Neuts % (Manual) Lymphocytes % (Manual) Seg Neutrophils # 11.9 H Seg Neutrophils # Man Lymphocytes # (Manual) D-Dimer ABG pH POC ABG pCO2 POC ABG pO2 ABG pO2 ABG HCO3 ABG O2 Saturation ABG Base Excess ABG Hemoglobin ABG Oxyhemoglobin ABG Sodium ABG Potassium ABG Chloride ABG Glucose Oxyhemoglobin Carboxyhemoglobin Sodium 128 L Potassium Chloride 96.0 L Carbon Dioxide BUN Creatinine 0.7 L Glucose 238 H POC Glucose Hemoglobin A1c Lactic Acid 4.10 H* Calcium 7.0 L Ferritin Total Bilirubin 1.40 H AST 49 H ALT 70 H Alkaline Phosphatase Lactate Dehydrogenase 663 H C-Reactive Protein 19.80 H Total Protein Albumin 2.9 L Triglycerides Arterial Blood Glucose Arterial Blood Ionized Calcium Ur Specific [place] Vancomycin Trough Coronavirus (PCR) 11/15/20 11/15/20 11/15/20 10:39 10:39 11:20 WBC RBC Hgb Hct Plt Count Lymph % (Auto) [place] % (Auto) Lymph # (Auto) [place] # (Auto) Baso # (Auto) Seg Neutrophils % Seg Neuts % (Manual) Lymphocytes % (Manual) Seg Neutrophils # Seg Neutrophils # Man Lymphocytes # (Manual) D-Dimer > 37551 H ABG pH POC ABG pCO2 29.9 L POC ABG pO2 137.3 H ABG pO2 ABG HCO3 ABG O2 Saturation ABG Base Excess ABG Hemoglobin ABG Oxyhemoglobin ABG Sodium 126.5 L ABG Potassium ABG Chloride ABG Glucose 248 H Oxyhemoglobin Carboxyhemoglobin Sodium Potassium Chloride Carbon Dioxide BUN Creatinine Glucose POC Glucose Hemoglobin A1c Lactic Acid Calcium Ferritin 672.8 H Total Bilirubin AST ALT Alkaline Phosphatase Lactate Dehydrogenase C-Reactive Protein Total Protein Albumin Triglycerides Arterial Blood Glucose 248 H Arterial Blood Ionized Calcium 4.1 L Ur Specific [place] Vancomycin Trough Coronavirus (PCR) 11/15/20 11/15/20 11/16/20 13:41 23:41 01:45 WBC RBC Hgb Hct Plt Count Lymph % (Auto) [place] % (Auto) Lymph # (Auto) [place] # (Auto) Baso # (Auto) Seg Neutrophils % Seg Neuts % (Manual) Lymphocytes % (Manual) Seg Neutrophils # Seg Neutrophils # Man Lymphocytes # (Manual) D-Dimer ABG pH POC ABG pCO2 POC ABG pO2 ABG pO2 ABG HCO3 ABG O2 Saturation ABG Base Excess ABG Hemoglobin ABG Oxyhemoglobin ABG Sodium ABG Potassium ABG Chloride ABG Glucose Oxyhemoglobin Carboxyhemoglobin Sodium Potassium Chloride Carbon Dioxide BUN Creatinine Glucose POC Glucose 284 H Hemoglobin A1c Lactic Acid 2.30 H* Calcium Ferritin Total Bilirubin AST ALT Alkaline Phosphatase Lactate Dehydrogenase C-Reactive Protein Total Protein Albumin Triglycerides Arterial Blood Glucose Arterial Blood Ionized Calcium Ur Specific [place] 1.037 H Vancomycin Trough Coronavirus (PCR) 11/16/20 11/16/20 11/16/20 05:29 05:29 05:29 WBC 12.9 H RBC Hgb Hct Plt Count Lymph % (Auto) 4.5 L [place] % (Auto) Lymph # (Auto) 0.6 L [place] # (Auto) Baso # (Auto) 0.2 H Seg Neutrophils % 89.8 H Seg Neuts % (Manual) Lymphocytes % (Manual) Seg Neutrophils # 11.5 H Seg Neutrophils # Man Lymphocytes # (Manual) D-Dimer ABG pH POC ABG pCO2 POC ABG pO2 ABG pO2 ABG HCO3 ABG O2 Saturation ABG Base Excess ABG Hemoglobin ABG Oxyhemoglobin ABG Sodium ABG Potassium ABG Chloride ABG Glucose Oxyhemoglobin Carboxyhemoglobin Sodium 131 L Potassium Chloride Carbon Dioxide 21 L BUN 23 H Creatinine 0.6 L Glucose 342 H POC Glucose Hemoglobin A1c Lactic Acid 2.60 H* Calcium 7.0 L Ferritin Total Bilirubin AST ALT Alkaline Phosphatase Lactate Dehydrogenase C-Reactive Protein Total Protein Albumin 2.4 L Triglycerides Arterial Blood Glucose Arterial Blood Ionized Calcium Ur Specific [place] Vancomycin Trough Coronavirus (PCR) 02/01/21 02/01/21 02/01/21 05:29 08:11 12:11 WBC RBC Hgb Hct Plt Count Lymph % (Auto) [place] % (Auto) Lymph # (Auto) [place] # (Auto) Baso # (Auto) Seg Neutrophils % Seg Neuts % (Manual) Lymphocytes % (Manual) Seg Neutrophils # Seg Neutrophils # Man Lymphocytes # (Manual) D-Dimer ABG pH POC ABG pCO2 POC ABG pO2 ABG pO2 ABG HCO3 ABG O2 Saturation ABG Base Excess ABG Hemoglobin ABG Oxyhemoglobin ABG Sodium ABG Potassium ABG Chloride ABG Glucose Oxyhemoglobin Carboxyhemoglobin Sodium Potassium Chloride Carbon Dioxide BUN Creatinine Glucose POC Glucose 329 H 320 H Hemoglobin A1c 11.7 H Lactic Acid Calcium Ferritin Total Bilirubin AST ALT Alkaline Phosphatase Lactate Dehydrogenase C-Reactive Protein Total Protein Albumin Triglycerides Arterial Blood Glucose Arterial Blood Ionized Calcium Ur Specific [place] Vancomycin Trough Coronavirus (PCR) 11/16/20 11/16/20 11/16/20 16:13 21:29 Unknown WBC RBC Hgb Hct Plt Count Lymph % (Auto) [place] % (Auto) Lymph # (Auto) [place] # (Auto) Baso # (Auto) Seg Neutrophils % Seg Neuts % (Manual) Lymphocytes % (Manual) Seg Neutrophils # Seg Neutrophils # Man Lymphocytes # (Manual) D-Dimer ABG pH POC ABG pCO2 POC ABG pO2 ABG pO2 ABG HCO3 ABG O2 Saturation ABG Base Excess ABG Hemoglobin ABG Oxyhemoglobin ABG Sodium ABG Potassium ABG Chloride ABG Glucose Oxyhemoglobin Carboxyhemoglobin Sodium Potassium Chloride Carbon Dioxide BUN Creatinine Glucose POC Glucose 257 H 376 H Hemoglobin A1c Lactic Acid Calcium Ferritin Total Bilirubin AST ALT Alkaline Phosphatase Lactate Dehydrogenase C-Reactive Protein Total Protein Albumin Triglycerides Arterial Blood Glucose Arterial Blood Ionized Calcium Ur Specific [place] Vancomycin Trough Coronavirus (PCR) Positive A 11/17/20 11/17/20 11/17/20 07:42 12:07 17:25 WBC RBC Hgb Hct Plt Count Lymph % (Auto) [place] % (Auto) Lymph # (Auto) [place] # (Auto) Baso # (Auto) Seg Neutrophils % Seg Neuts % (Manual) Lymphocytes % (Manual) Seg Neutrophils # Seg Neutrophils # Man Lymphocytes # (Manual) D-Dimer ABG pH POC ABG pCO2 POC ABG pO2 ABG pO2 ABG HCO3 ABG O2 Saturation ABG Base Excess ABG Hemoglobin ABG Oxyhemoglobin ABG Sodium ABG Potassium ABG Chloride ABG Glucose Oxyhemoglobin Carboxyhemoglobin Sodium Potassium Chloride Carbon Dioxide BUN Creatinine Glucose POC Glucose 231 H 380 H 302 H Hemoglobin A1c Lactic Acid Calcium Ferritin Total Bilirubin AST ALT Alkaline Phosphatase Lactate Dehydrogenase C-Reactive Protein Total Protein Albumin Triglycerides Arterial Blood Glucose Arterial Blood Ionized Calcium Ur Specific [place] Vancomycin Trough Coronavirus (PCR) 11/17/20 11/18/20 11/18/20 21:53 04:25 07:45 WBC RBC Hgb Hct Plt Count Lymph % (Auto) [place] % (Auto) Lymph # (Auto) [place] # (Auto) Baso # (Auto) Seg Neutrophils % Seg Neuts % (Manual) Lymphocytes % (Manual) Seg Neutrophils # Seg Neutrophils # Man Lymphocytes # (Manual) D-Dimer ABG pH POC ABG pCO2 POC ABG pO2 ABG pO2 ABG HCO3 ABG O2 Saturation ABG Base Excess ABG Hemoglobin ABG Oxyhemoglobin ABG Sodium ABG Potassium ABG Chloride ABG Glucose Oxyhemoglobin Carboxyhemoglobin Sodium 136 L Potassium Chloride Carbon Dioxide BUN 24 H Creatinine 0.6 L Glucose 212 H POC Glucose 293 H 216 H Hemoglobin A1c Lactic Acid Calcium 7.4 L Ferritin Total Bilirubin AST 41 H ALT Alkaline Phosphatase 142 H Lactate Dehydrogenase C-Reactive Protein Total Protein Albumin 2.3 L Triglycerides Arterial Blood Glucose Arterial Blood Ionized Calcium Ur Specific [place] Vancomycin Trough Coronavirus (PCR) 11/18/20 11/18/20 11/18/20 12:28 15:58 21:37 WBC RBC Hgb Hct Plt Count Lymph % (Auto) [place] % (Auto) Lymph # (Auto) [place] # (Auto) Baso # (Auto) Seg Neutrophils % Seg Neuts % (Manual) Lymphocytes % (Manual) Seg Neutrophils # Seg Neutrophils # Man Lymphocytes # (Manual) D-Dimer ABG pH POC ABG pCO2 POC ABG pO2 ABG pO2 ABG HCO3 ABG O2 Saturation ABG Base Excess ABG Hemoglobin ABG Oxyhemoglobin ABG Sodium ABG Potassium ABG Chloride ABG Glucose Oxyhemoglobin Carboxyhemoglobin Sodium Potassium Chloride Carbon Dioxide BUN Creatinine Glucose POC Glucose 165 H 220 H 311 H Hemoglobin A1c Lactic Acid Calcium Ferritin Total Bilirubin AST ALT Alkaline Phosphatase Lactate Dehydrogenase C-Reactive Protein Total Protein Albumin Triglycerides Arterial Blood Glucose Arterial Blood Ionized Calcium Ur Specific [place] Vancomycin Trough Coronavirus (PCR) 11/19/20 11/19/20 11/19/20 05:35 07:40 12:39 WBC RBC Hgb Hct Plt Count Lymph % (Auto) [place] % (Auto) Lymph # (Auto) [place] # (Auto) Baso # (Auto) Seg Neutrophils % Seg Neuts % (Manual) Lymphocytes % (Manual) Seg Neutrophils # Seg Neutrophils # Man Lymphocytes # (Manual) D-Dimer ABG pH POC ABG pCO2 POC ABG pO2 ABG pO2 ABG HCO3 ABG O2 Saturation ABG Base Excess ABG Hemoglobin ABG Oxyhemoglobin ABG Sodium ABG Potassium ABG Chloride ABG Glucose Oxyhemoglobin Carboxyhemoglobin Sodium 132 L Potassium Chloride Carbon Dioxide BUN 25 H Creatinine 0.5 L Glucose 179 H POC Glucose 149 H 306 H Hemoglobin A1c Lactic Acid Calcium 7.5 L Ferritin Total Bilirubin AST ALT Alkaline Phosphatase 139 H Lactate Dehydrogenase C-Reactive Protein Total Protein Albumin 2.4 L Triglycerides Arterial Blood Glucose Arterial Blood Ionized Calcium Ur Specific [place] Vancomycin Trough Coronavirus (PCR) 11/19/20 11/19/20 11/20/20 16:17 21:25 08:30 WBC RBC Hgb Hct Plt Count Lymph % (Auto) [place] % (Auto) Lymph # (Auto) [place] # (Auto) Baso # (Auto) Seg Neutrophils % Seg Neuts % (Manual) Lymphocytes % (Manual) Seg Neutrophils # Seg Neutrophils # Man Lymphocytes # (Manual) D-Dimer ABG pH POC ABG pCO2 POC ABG pO2 ABG pO2 ABG HCO3 ABG O2 Saturation ABG Base Excess ABG Hemoglobin ABG Oxyhemoglobin ABG Sodium ABG Potassium ABG Chloride ABG Glucose Oxyhemoglobin Carboxyhemoglobin Sodium Potassium Chloride Carbon Dioxide BUN Creatinine Glucose POC Glucose 364 H 347 H 141 H Hemoglobin A1c Lactic Acid Calcium Ferritin Total Bilirubin AST ALT Alkaline Phosphatase Lactate Dehydrogenase C-Reactive Protein Total Protein Albumin Triglycerides Arterial Blood Glucose Arterial Blood Ionized Calcium Ur Specific [place] Vancomycin Trough Coronavirus (PCR) 11/20/20 11/20/20 11/20/20 08:50 11:32 16:19 WBC RBC Hgb Hct Plt Count Lymph % (Auto) [place] % (Auto) Lymph # (Auto) [place] # (Auto) Baso # (Auto) Seg Neutrophils % Seg Neuts % (Manual) Lymphocytes % (Manual) Seg Neutrophils # Seg Neutrophils # Man Lymphocytes # (Manual) D-Dimer ABG pH POC ABG pCO2 POC ABG pO2 ABG pO2 ABG HCO3 ABG O2 Saturation ABG Base Excess ABG Hemoglobin ABG Oxyhemoglobin ABG Sodium ABG Potassium ABG Chloride ABG Glucose Oxyhemoglobin Carboxyhemoglobin Sodium 132 L Potassium Chloride 97.6 L Carbon Dioxide BUN 26 H Creatinine 0.5 L Glucose 201 H POC Glucose 296 H 327 H Hemoglobin A1c Lactic Acid Calcium 7.9 L Ferritin Total Bilirubin AST ALT Alkaline Phosphatase 137 H Lactate Dehydrogenase C-Reactive Protein Total Protein Albumin 2.6 L Triglycerides Arterial Blood Glucose Arterial Blood Ionized Calcium Ur Specific [place] Vancomycin Trough Coronavirus (PCR) 11/20/20 11/21/20 11/21/20 22:09 07:59 13:51 WBC RBC Hgb Hct Plt Count Lymph % (Auto) [place] % (Auto) Lymph # (Auto) [place] # (Auto) Baso # (Auto) Seg Neutrophils % Seg Neuts % (Manual) Lymphocytes % (Manual) Seg Neutrophils # Seg Neutrophils # Man Lymphocytes # (Manual) D-Dimer ABG pH POC ABG pCO2 POC ABG pO2 ABG pO2 ABG HCO3 ABG O2 Saturation ABG Base Excess ABG Hemoglobin ABG Oxyhemoglobin ABG Sodium ABG Potassium ABG Chloride ABG Glucose Oxyhemoglobin Carboxyhemoglobin Sodium Potassium Chloride Carbon Dioxide BUN Creatinine Glucose POC Glucose 311 H 218 H 304 H Hemoglobin A1c Lactic Acid Calcium Ferritin Total Bilirubin AST ALT Alkaline Phosphatase Lactate Dehydrogenase C-Reactive Protein Total Protein Albumin Triglycerides Arterial Blood Glucose Arterial Blood Ionized Calcium Ur Specific [place] Vancomycin Trough Coronavirus (PCR) 11/21/20 11/21/20 11/21/20 16:09 21:34 23:00 WBC RBC Hgb Hct Plt Count Lymph % (Auto) [place] % (Auto) Lymph # (Auto) [place] # (Auto) Baso # (Auto) Seg Neutrophils % Seg Neuts % (Manual) Lymphocytes % (Manual) Seg Neutrophils # Seg Neutrophils # Man Lymphocytes # (Manual) D-Dimer ABG pH 7.206 L POC ABG pCO2 59.3 H POC ABG pO2 76.7 L ABG pO2 ABG HCO3 ABG O2 Saturation ABG Base Excess ABG Hemoglobin ABG Oxyhemoglobin ABG Sodium 133.1 L ABG Potassium ABG Chloride ABG Glucose 320 H Oxyhemoglobin Carboxyhemoglobin Sodium Potassium Chloride Carbon Dioxide BUN Creatinine Glucose POC Glucose 239 H 279 H Hemoglobin A1c Lactic Acid Calcium Ferritin Total Bilirubin AST ALT Alkaline Phosphatase Lactate Dehydrogenase C-Reactive Protein Total Protein Albumin Triglycerides Arterial Blood Glucose 320 H Arterial Blood Ionized Calcium Ur Specific [place] Vancomycin Trough Coronavirus (PCR) 11/22/20 11/22/20 11/22/20 04:52 04:52 04:52 WBC RBC Hgb Hct Plt Count Lymph % (Auto) [place] % (Auto) Lymph # (Auto) [place] # (Auto) Baso # (Auto) Seg Neutrophils % Seg Neuts % (Manual) Lymphocytes % (Manual) Seg Neutrophils # Seg Neutrophils # Man Lymphocytes # (Manual) D-Dimer 1858.36 H ABG pH POC ABG pCO2 POC ABG pO2 ABG pO2 ABG HCO3 ABG O2 Saturation ABG Base Excess ABG Hemoglobin ABG Oxyhemoglobin ABG Sodium ABG Potassium ABG Chloride ABG Glucose Oxyhemoglobin Carboxyhemoglobin Sodium Potassium Chloride Carbon Dioxide BUN Creatinine Glucose POC Glucose Hemoglobin A1c Lactic Acid Calcium Ferritin 734.2 H Total Bilirubin AST ALT Alkaline Phosphatase Lactate Dehydrogenase 404 H C-Reactive Protein 2.80 H Total Protein Albumin Triglycerides Arterial Blood Glucose Arterial Blood Ionized Calcium Ur Specific [place] Vancomycin Trough Coronavirus (PCR) 11/22/20 11/22/20 11/22/20 05:12 05:39 11:50 WBC RBC Hgb Hct Plt Count Lymph % (Auto) [place] % (Auto) Lymph # (Auto) [place] # (Auto) Baso # (Auto) Seg Neutrophils % Seg Neuts % (Manual) Lymphocytes % (Manual) Seg Neutrophils # Seg Neutrophils # Man Lymphocytes # (Manual) D-Dimer ABG pH POC ABG pCO2 POC ABG pO2 51.0 L ABG pO2 ABG HCO3 ABG O2 Saturation ABG Base Excess ABG Hemoglobin ABG Oxyhemoglobin ABG Sodium 131.2 L ABG Potassium 4.6 H ABG Chloride ABG Glucose 317 H Oxyhemoglobin Carboxyhemoglobin Sodium Potassium Chloride Carbon Dioxide BUN Creatinine Glucose POC Glucose 340 H 417 H Hemoglobin A1c Lactic Acid Calcium Ferritin Total Bilirubin AST ALT Alkaline Phosphatase Lactate Dehydrogenase C-Reactive Protein Total Protein Albumin Triglycerides Arterial Blood Glucose 317 H Arterial Blood Ionized Calcium 4.4 L Ur Specific [place] Vancomycin Trough Coronavirus (PCR) 11/22/20 11/22/20 11/22/20 12:22 12:22 17:10 WBC 14.4 H RBC Hgb Hct Plt Count Lymph % (Auto) [place] % (Auto) Lymph # (Auto) [place] # (Auto) Baso # (Auto) Seg Neutrophils % Seg Neuts % (Manual) 98.0 H Lymphocytes % (Manual) Seg Neutrophils # Seg Neutrophils # Man 14.1 H Lymphocytes # (Manual) 0.0 L D-Dimer ABG pH POC ABG pCO2 POC ABG pO2 ABG pO2 ABG HCO3 ABG O2 Saturation ABG Base Excess ABG Hemoglobin ABG Oxyhemoglobin ABG Sodium ABG Potassium ABG Chloride ABG Glucose Oxyhemoglobin Carboxyhemoglobin Sodium 132 L Potassium Chloride Carbon Dioxide BUN 36 H Creatinine 0.6 L Glucose 219 H POC Glucose 157 H Hemoglobin A1c Lactic Acid Calcium 7.2 L Ferritin Total Bilirubin AST ALT Alkaline Phosphatase Lactate Dehydrogenase C-Reactive Protein Total Protein Albumin Triglycerides Arterial Blood Glucose Arterial Blood Ionized Calcium Ur Specific [place] Vancomycin Trough Coronavirus (PCR) 11/22/20 11/22/20 11/22/20 18:33 21:44 23:47 WBC RBC Hgb Hct Plt Count Lymph % (Auto) [place] % (Auto) Lymph # (Auto) [place] # (Auto) Baso # (Auto) Seg Neutrophils % Seg Neuts % (Manual) Lymphocytes % (Manual) Seg Neutrophils # Seg Neutrophils # Man Lymphocytes # (Manual) D-Dimer ABG pH POC ABG pCO2 POC ABG pO2 60.8 L ABG pO2 ABG HCO3 ABG O2 Saturation ABG Base Excess ABG Hemoglobin ABG Oxyhemoglobin 88.1 L ABG Sodium 135.1 L ABG Potassium ABG Chloride ABG Glucose 141 H Oxyhemoglobin Carboxyhemoglobin Sodium Potassium Chloride Carbon Dioxide BUN Creatinine Glucose POC Glucose 117 H 123 H Hemoglobin A1c Lactic Acid Calcium Ferritin Total Bilirubin AST ALT Alkaline Phosphatase Lactate Dehydrogenase C-Reactive Protein Total Protein Albumin Triglycerides Arterial Blood Glucose 141 H Arterial Blood Ionized Calcium Ur Specific [place] Vancomycin Trough Coronavirus (PCR) 11/23/20 11/23/20 11/23/20 04:00 04:00 05:23 WBC 14.4 H RBC Hgb Hct Plt Count Lymph % (Auto) [place] % (Auto) Lymph # (Auto) [place] # (Auto) Baso # (Auto) Seg Neutrophils % Seg Neuts % (Manual) Lymphocytes % (Manual) Seg Neutrophils # Seg Neutrophils # Man Lymphocytes # (Manual) D-Dimer ABG pH POC ABG pCO2 POC ABG pO2 ABG pO2 ABG HCO3 ABG O2 Saturation ABG Base Excess ABG Hemoglobin ABG Oxyhemoglobin ABG Sodium ABG Potassium ABG Chloride ABG Glucose Oxyhemoglobin Carboxyhemoglobin Sodium 136 L Potassium Chloride Carbon Dioxide BUN 33 H Creatinine 0.6 L Glucose 115 H POC Glucose 173 H Hemoglobin A1c Lactic Acid Calcium 7.1 L Ferritin Total Bilirubin AST 64 H ALT 75 H Alkaline Phosphatase Lactate Dehydrogenase C-Reactive Protein Total Protein 5.9 L D Albumin 2.4 L Triglycerides Arterial Blood Glucose Arterial Blood Ionized Calcium Ur Specific [place] Vancomycin Trough Coronavirus (PCR) 11/23/20 11/23/20 11/23/20 05:40 11:27 17:10 WBC RBC Hgb Hct Plt Count Lymph % (Auto) [place] % (Auto) Lymph # (Auto) [place] # (Auto) Baso # (Auto) Seg Neutrophils % Seg Neuts % (Manual) Lymphocytes % (Manual) Seg Neutrophils # Seg Neutrophils # Man Lymphocytes # (Manual) D-Dimer ABG pH POC ABG pCO2 POC ABG pO2 56.5 L ABG pO2 ABG HCO3 ABG O2 Saturation ABG Base Excess ABG Hemoglobin ABG Oxyhemoglobin ABG Sodium ABG Potassium ABG Chloride 109.0 H ABG Glucose 114 H Oxyhemoglobin Carboxyhemoglobin Sodium Potassium Chloride Carbon Dioxide BUN Creatinine Glucose POC Glucose 114 H 136 H Hemoglobin A1c Lactic Acid Calcium Ferritin Total Bilirubin AST ALT Alkaline Phosphatase Lactate Dehydrogenase C-Reactive Protein Total Protein Albumin Triglycerides Arterial Blood Glucose 114 H Arterial Blood Ionized Calcium 4.5 L Ur Specific [place] Vancomycin Trough Coronavirus (PCR) 11/24/20 11/24/20 11/24/20 05:14 05:14 05:14 WBC RBC Hgb Hct Plt Count Lymph % (Auto) [place] % (Auto) Lymph # (Auto) [place] # (Auto) Baso # (Auto) Seg Neutrophils % Seg Neuts % (Manual) Lymphocytes % (Manual) Seg Neutrophils # Seg Neutrophils # Man Lymphocytes # (Manual) D-Dimer 1433.39 H ABG pH POC ABG pCO2 POC ABG pO2 ABG pO2 ABG HCO3 ABG O2 Saturation ABG Base Excess ABG Hemoglobin ABG Oxyhemoglobin ABG Sodium ABG Potassium ABG Chloride ABG Glucose Oxyhemoglobin Carboxyhemoglobin Sodium Potassium Chloride Carbon Dioxide BUN Creatinine Glucose POC Glucose Hemoglobin A1c Lactic Acid Calcium Ferritin 997.5 H Total Bilirubin AST ALT Alkaline Phosphatase Lactate Dehydrogenase 463 H C-Reactive Protein Total Protein Albumin Triglycerides Arterial Blood Glucose Arterial Blood Ionized Calcium Ur Specific [place] Vancomycin Trough Coronavirus (PCR) 11/24/20 11/24/20 11/24/20 05:31 05:36 12:05 WBC RBC Hgb Hct Plt Count Lymph % (Auto) [place] % (Auto) Lymph # (Auto) [place] # (Auto) Baso # (Auto) Seg Neutrophils % Seg Neuts % (Manual) Lymphocytes % (Manual) Seg Neutrophils # Seg Neutrophils # Man Lymphocytes # (Manual) D-Dimer ABG pH POC ABG pCO2 POC ABG pO2 57.2 L ABG pO2 ABG HCO3 ABG O2 Saturation ABG Base Excess ABG Hemoglobin ABG Oxyhemoglobin ABG Sodium ABG Potassium ABG Chloride ABG Glucose 180 H Oxyhemoglobin Carboxyhemoglobin Sodium Potassium Chloride Carbon Dioxide BUN Creatinine Glucose POC Glucose 199 H 143 H Hemoglobin A1c Lactic Acid Calcium Ferritin Total Bilirubin AST ALT Alkaline Phosphatase Lactate Dehydrogenase C-Reactive Protein Total Protein Albumin Triglycerides Arterial Blood Glucose 180 H Arterial Blood Ionized Calcium 4.5 L Ur Specific [place] Vancomycin Trough Coronavirus (PCR) 11/24/20 11/24/20 11/24/20 12:14 17:47 23:47 WBC RBC Hgb Hct Plt Count Lymph % (Auto) [place] % (Auto) Lymph # (Auto) [place] # (Auto) Baso # (Auto) Seg Neutrophils % Seg Neuts % (Manual) Lymphocytes % (Manual) Seg Neutrophils # Seg Neutrophils # Man Lymphocytes # (Manual) D-Dimer ABG pH 7.261 L POC ABG pCO2 59.7 H POC ABG pO2 75.7 L ABG pO2 ABG HCO3 ABG O2 Saturation ABG Base Excess ABG Hemoglobin ABG Oxyhemoglobin 92.5 L ABG Sodium ABG Potassium ABG Chloride 108.0 H ABG Glucose 150 H Oxyhemoglobin Carboxyhemoglobin Sodium Potassium Chloride Carbon Dioxide BUN Creatinine Glucose POC Glucose 223 H 179 H Hemoglobin A1c Lactic Acid Calcium Ferritin Total Bilirubin AST ALT Alkaline Phosphatase Lactate Dehydrogenase C-Reactive Protein Total Protein Albumin Triglycerides Arterial Blood Glucose 150 H Arterial Blood Ionized Calcium Ur Specific [place] Vancomycin Trough Coronavirus (PCR) 11/25/20 11/25/20 11/25/20 03:29 05:07 05:15 WBC 13.9 H RBC Hgb Hct Plt Count Lymph % (Auto) [place] % (Auto) Lymph # (Auto) [place] # (Auto) Baso # (Auto) Seg Neutrophils % Seg Neuts % (Manual) 97.0 H Lymphocytes % (Manual) Seg Neutrophils # Seg Neutrophils # Man 13.5 H Lymphocytes # (Manual) 0.0 L D-Dimer ABG pH 7.272 L POC ABG pCO2 69.0 H POC ABG pO2 132.9 H ABG pO2 ABG HCO3 ABG O2 Saturation ABG Base Excess ABG Hemoglobin ABG Oxyhemoglobin ABG Sodium ABG Potassium ABG Chloride ABG Glucose 174 H Oxyhemoglobin Carboxyhemoglobin Sodium Potassium Chloride Carbon Dioxide BUN Creatinine Glucose POC Glucose 168 H Hemoglobin A1c Lactic Acid Calcium Ferritin Total Bilirubin AST ALT Alkaline Phosphatase Lactate Dehydrogenase C-Reactive Protein Total Protein Albumin Triglycerides Arterial Blood Glucose 174 H Arterial Blood Ionized Calcium Ur Specific [place] Vancomycin Trough Coronavirus (PCR) 11/25/20 11/25/20 11/25/20 05:15 11:25 17:35 WBC RBC Hgb Hct Plt Count Lymph % (Auto) [place] % (Auto) Lymph # (Auto) [place] # (Auto) Baso # (Auto) Seg Neutrophils % Seg Neuts % (Manual) Lymphocytes % (Manual) Seg Neutrophils # Seg Neutrophils # Man Lymphocytes # (Manual) D-Dimer ABG pH POC ABG pCO2 POC ABG pO2 ABG pO2 ABG HCO3 ABG O2 Saturation ABG Base Excess ABG Hemoglobin ABG Oxyhemoglobin ABG Sodium ABG Potassium ABG Chloride ABG Glucose Oxyhemoglobin Carboxyhemoglobin Sodium Potassium Chloride Carbon Dioxide BUN 29 H Creatinine 0.5 L Glucose 161 H POC Glucose 224 H 228 H Hemoglobin A1c Lactic Acid Calcium 7.8 L Ferritin Total Bilirubin AST 89 H ALT 129 H Alkaline Phosphatase Lactate Dehydrogenase C-Reactive Protein Total Protein 5.8 L Albumin 2.5 L Triglycerides Arterial Blood Glucose Arterial Blood Ionized Calcium Ur Specific [place] Vancomycin Trough Coronavirus (PCR) 11/25/20 11/25/20 11/26/20 20:45 23:28 04:00 WBC RBC Hgb Hct Plt Count Lymph % (Auto) [place] % (Auto) Lymph # (Auto) [place] # (Auto) Baso # (Auto) Seg Neutrophils % Seg Neuts % (Manual) Lymphocytes % (Manual) Seg Neutrophils # Seg Neutrophils # Man Lymphocytes # (Manual) D-Dimer ABG pH POC ABG pCO2 POC ABG pO2 ABG pO2 ABG HCO3 ABG O2 Saturation ABG Base Excess ABG Hemoglobin ABG Oxyhemoglobin ABG Sodium ABG Potassium ABG Chloride ABG Glucose Oxyhemoglobin Carboxyhemoglobin Sodium Potassium Chloride Carbon Dioxide BUN Creatinine Glucose POC Glucose 177 H 243 H Hemoglobin A1c Lactic Acid Calcium Ferritin 778.8 H Total Bilirubin AST ALT Alkaline Phosphatase Lactate Dehydrogenase C-Reactive Protein Total Protein Albumin Triglycerides Arterial Blood Glucose Arterial Blood Ionized Calcium Ur Specific [place] Vancomycin Trough Coronavirus (PCR) 11/26/20 11/26/20 11/26/20 04:00 05:34 06:04 WBC RBC Hgb Hct Plt Count Lymph % (Auto) [place] % (Auto) Lymph # (Auto) [place] # (Auto) Baso # (Auto) Seg Neutrophils % Seg Neuts % (Manual) Lymphocytes % (Manual) Seg Neutrophils # Seg Neutrophils # Man Lymphocytes # (Manual) D-Dimer 926.11 H ABG pH POC ABG pCO2 POC ABG pO2 ABG pO2 ABG HCO3 ABG O2 Saturation ABG Base Excess ABG Hemoglobin ABG Oxyhemoglobin ABG Sodium ABG Potassium ABG Chloride ABG Glucose Oxyhemoglobin Carboxyhemoglobin Sodium Potassium Chloride Carbon Dioxide 39 H D BUN 30 H Creatinine 0.5 L Glucose 193 H POC Glucose 178 H Hemoglobin A1c Lactic Acid Calcium 7.7 L Ferritin Total Bilirubin AST 65 H ALT 132 H Alkaline Phosphatase Lactate Dehydrogenase 288 H C-Reactive Protein 1.40 H Total Protein 5.7 L Albumin 2.4 L Triglycerides Arterial Blood Glucose Arterial Blood Ionized Calcium Ur Specific [place] Vancomycin Trough Coronavirus (PCR) 11/26/20 11/26/20 11/26/20 06:04 08:47 11:20 WBC 12.4 H RBC Hgb Hct Plt Count Lymph % (Auto) [place] % (Auto) Lymph # (Auto) [place] # (Auto) Baso # (Auto) Seg Neutrophils % Seg Neuts % (Manual) 98.0 H Lymphocytes % (Manual) 1.0 L Seg Neutrophils # Seg Neutrophils # Man 12.2 H Lymphocytes # (Manual) 0.1 L D-Dimer ABG pH POC ABG pCO2 75.2 H POC ABG pO2 61.9 L ABG pO2 ABG HCO3 ABG O2 Saturation ABG Base Excess ABG Hemoglobin ABG Oxyhemoglobin 90.3 L ABG Sodium ABG Potassium ABG Chloride ABG Glucose 243 H Oxyhemoglobin Carboxyhemoglobin Sodium Potassium Chloride Carbon Dioxide BUN Creatinine Glucose POC Glucose 255 H Hemoglobin A1c Lactic Acid Calcium Ferritin Total Bilirubin AST ALT Alkaline Phosphatase Lactate Dehydrogenase C-Reactive Protein Total Protein Albumin Triglycerides Arterial Blood Glucose 243 H Arterial Blood Ionized Calcium Ur Specific [place] Vancomycin Trough Coronavirus (PCR) 11/26/20 11/26/20 11/26/20 16:20 17:15 23:41 WBC RBC Hgb Hct Plt Count Lymph % (Auto) [place] % (Auto) Lymph # (Auto) [place] # (Auto) Baso # (Auto) Seg Neutrophils % Seg Neuts % (Manual) Lymphocytes % (Manual) Seg Neutrophils # Seg Neutrophils # Man Lymphocytes # (Manual) D-Dimer ABG pH POC ABG pCO2 66.6 H POC ABG pO2 78.1 L ABG pO2 ABG HCO3 ABG O2 Saturation ABG Base Excess ABG Hemoglobin ABG Oxyhemoglobin ABG Sodium ABG Potassium ABG Chloride ABG Glucose 244 H Oxyhemoglobin Carboxyhemoglobin Sodium Potassium Chloride Carbon Dioxide BUN Creatinine Glucose POC Glucose 219 H 210 H Hemoglobin A1c Lactic Acid Calcium Ferritin Total Bilirubin AST ALT Alkaline Phosphatase Lactate Dehydrogenase C-Reactive Protein Total Protein Albumin Triglycerides Arterial Blood Glucose 244 H Arterial Blood Ionized Calcium Ur Specific [place] Vancomycin Trough Coronavirus (PCR) 11/27/20 11/27/20 11/27/20 04:46 05:38 06:25 WBC 13.8 H RBC Hgb Hct Plt Count Lymph % (Auto) 2.0 L [place] % (Auto) Lymph # (Auto) 0.3 L [place] # (Auto) Baso # (Auto) Seg Neutrophils % Seg Neuts % (Manual) 96.0 H Lymphocytes % (Manual) Seg Neutrophils # 12.7 H Seg Neutrophils # Man 13.2 H Lymphocytes # (Manual) 0.0 L D-Dimer ABG pH POC ABG pCO2 63.0 H POC ABG pO2 53.6 L ABG pO2 ABG HCO3 ABG O2 Saturation ABG Base Excess ABG Hemoglobin ABG Oxyhemoglobin 87.8 L ABG Sodium 115.4 L ABG Potassium ABG Chloride ABG Glucose 219 H Oxyhemoglobin Carboxyhemoglobin Sodium Potassium Chloride Carbon Dioxide BUN Creatinine Glucose POC Glucose 227 H Hemoglobin A1c Lactic Acid Calcium Ferritin Total Bilirubin AST ALT Alkaline Phosphatase Lactate Dehydrogenase C-Reactive Protein Total Protein Albumin Triglycerides Arterial Blood Glucose 219 H Arterial Blood Ionized Calcium Ur Specific [place] Vancomycin Trough Coronavirus (PCR) 11/27/20 11/27/20 11/27/20 06:25 18:05 23:29 WBC RBC Hgb Hct Plt Count Lymph % (Auto) [place] % (Auto) Lymph # (Auto) [place] # (Auto) Baso # (Auto) Seg Neutrophils % Seg Neuts % (Manual) Lymphocytes % (Manual) Seg Neutrophils # Seg Neutrophils # Man Lymphocytes # (Manual) D-Dimer ABG pH POC ABG pCO2 POC ABG pO2 ABG pO2 ABG HCO3 ABG O2 Saturation ABG Base Excess ABG Hemoglobin ABG Oxyhemoglobin ABG Sodium ABG Potassium ABG Chloride ABG Glucose Oxyhemoglobin Carboxyhemoglobin Sodium Potassium Chloride Carbon Dioxide 38 H BUN 34 H Creatinine 0.4 L Glucose 243 H POC Glucose 329 H 227 H Hemoglobin A1c Lactic Acid Calcium 7.9 L Ferritin Total Bilirubin AST 50 H ALT 110 H Alkaline Phosphatase Lactate Dehydrogenase C-Reactive Protein Total Protein 6.1 L Albumin 2.4 L Triglycerides Arterial Blood Glucose Arterial Blood Ionized Calcium Ur Specific [place] Vancomycin Trough Coronavirus (PCR) 11/28/20 11/28/20 11/28/20 03:45 03:45 03:46 WBC 12.2 H RBC Hgb Hct Plt Count Lymph % (Auto) [place] % (Auto) Lymph # (Auto) [place] # (Auto) Baso # (Auto) Seg Neutrophils % Seg Neuts % (Manual) 93.0 H Lymphocytes % (Manual) 2.0 L Seg Neutrophils # Seg Neutrophils # Man 11.3 H Lymphocytes # (Manual) 0.2 L D-Dimer ABG pH POC ABG pCO2 68.4 H POC ABG pO2 55.4 L ABG pO2 ABG HCO3 ABG O2 Saturation ABG Base Excess ABG Hemoglobin ABG Oxyhemoglobin ABG Sodium ABG Potassium ABG Chloride ABG Glucose 197 H Oxyhemoglobin Carboxyhemoglobin Sodium Potassium Chloride Carbon Dioxide 36 H BUN 37 H Creatinine 0.4 L Glucose 194 H POC Glucose Hemoglobin A1c Lactic Acid Calcium 8.1 L Ferritin Total Bilirubin AST ALT 86 H Alkaline Phosphatase Lactate Dehydrogenase C-Reactive Protein Total Protein 6.0 L Albumin 2.3 L Triglycerides Arterial Blood Glucose 197 H Arterial Blood Ionized Calcium Ur Specific [place] Vancomycin Trough Coronavirus (PCR) 11/28/20 11/28/20 11/29/20 05:24 12:21 04:41 WBC RBC Hgb Hct Plt Count Lymph % (Auto) [place] % (Auto) Lymph # (Auto) [place] # (Auto) Baso # (Auto) Seg Neutrophils % Seg Neuts % (Manual) Lymphocytes % (Manual) Seg Neutrophils # Seg Neutrophils # Man Lymphocytes # (Manual) D-Dimer ABG pH POC ABG pCO2 55.1 H POC ABG pO2 53.6 L ABG pO2 ABG HCO3 ABG O2 Saturation ABG Base Excess ABG Hemoglobin ABG Oxyhemoglobin 87.1 L ABG Sodium 131.2 L ABG Potassium ABG Chloride ABG Glucose 164 H Oxyhemoglobin Carboxyhemoglobin Sodium Potassium Chloride Carbon Dioxide BUN Creatinine Glucose POC Glucose 173 H 126 H Hemoglobin A1c Lactic Acid Calcium Ferritin Total Bilirubin AST ALT Alkaline Phosphatase Lactate Dehydrogenase C-Reactive Protein Total Protein Albumin Triglycerides Arterial Blood Glucose 164 H Arterial Blood Ionized Calcium 4.4 L Ur Specific [place] Vancomycin Trough Coronavirus (PCR) 11/29/20 11/29/20 11/29/20 05:29 12:41 13:28 WBC RBC Hgb Hct Plt Count Lymph % (Auto) [place] % (Auto) Lymph # (Auto) [place] # (Auto) Baso # (Auto) Seg Neutrophils % Seg Neuts % (Manual) Lymphocytes % (Manual) Seg Neutrophils # Seg Neutrophils # Man Lymphocytes # (Manual) D-Dimer ABG pH POC ABG pCO2 POC ABG pO2 ABG pO2 ABG HCO3 ABG O2 Saturation ABG Base Excess ABG Hemoglobin ABG Oxyhemoglobin ABG Sodium ABG Potassium ABG Chloride ABG Glucose Oxyhemoglobin Carboxyhemoglobin Sodium Potassium Chloride Carbon Dioxide 40 H BUN 32 H Creatinine 0.4 L Glucose 274 H POC Glucose 173 H 257 H Hemoglobin A1c Lactic Acid Calcium 7.2 L Ferritin Total Bilirubin AST 57 H ALT 102 H Alkaline Phosphatase Lactate Dehydrogenase C-Reactive Protein Total Protein 5.7 L Albumin 2.1 L Triglycerides Arterial Blood Glucose Arterial Blood Ionized Calcium Ur Specific [place] Vancomycin Trough Coronavirus (PCR) 11/29/20 11/29/20 11/29/20 15:40 17:36 21:26 WBC RBC Hgb Hct Plt Count Lymph % (Auto) [place] % (Auto) Lymph # (Auto) [place] # (Auto) Baso # (Auto) Seg Neutrophils % Seg Neuts % (Manual) Lymphocytes % (Manual) Seg Neutrophils # Seg Neutrophils # Man Lymphocytes # (Manual) D-Dimer ABG pH POC ABG pCO2 POC ABG pO2 ABG pO2 ABG HCO3 ABG O2 Saturation ABG Base Excess ABG Hemoglobin ABG Oxyhemoglobin ABG Sodium ABG Potassium ABG Chloride ABG Glucose Oxyhemoglobin Carboxyhemoglobin Sodium Potassium Chloride Carbon Dioxide BUN Creatinine Glucose POC Glucose 240 H 244 H Hemoglobin A1c Lactic Acid Calcium Ferritin Total Bilirubin AST ALT Alkaline Phosphatase Lactate Dehydrogenase C-Reactive Protein Total Protein Albumin Triglycerides Arterial Blood Glucose Arterial Blood Ionized Calcium Ur Specific [place] Vancomycin Trough 4.0 L Coronavirus (PCR) 11/29/20 11/30/20 11/30/20 23:26 03:30 03:30 WBC RBC Hgb Hct Plt Count Lymph % (Auto) [place] % (Auto) Lymph # (Auto) [place] # (Auto) Baso # (Auto) Seg Neutrophils % Seg Neuts % (Manual) 97.0 H Lymphocytes % (Manual) 1.0 L Seg Neutrophils # Seg Neutrophils # Man 9.9 H Lymphocytes # (Manual) 0.1 L D-Dimer ABG pH POC ABG pCO2 POC ABG pO2 ABG pO2 ABG HCO3 ABG O2 Saturation ABG Base Excess ABG Hemoglobin ABG Oxyhemoglobin ABG Sodium ABG Potassium ABG Chloride ABG Glucose Oxyhemoglobin Carboxyhemoglobin Sodium Potassium Chloride Carbon Dioxide 38 H BUN 34 H Creatinine 0.4 L Glucose 305 H POC Glucose 283 H Hemoglobin A1c Lactic Acid Calcium 7.6 L Ferritin Total Bilirubin AST ALT 89 H Alkaline Phosphatase Lactate Dehydrogenase C-Reactive Protein Total Protein 6.0 L Albumin 2.3 L Triglycerides Arterial Blood Glucose Arterial Blood Ionized Calcium Ur Specific [place] Vancomycin Trough Coronavirus (PCR) 11/30/20 11/30/20 11/30/20 03:57 05:22 12:05 WBC RBC Hgb Hct Plt Count Lymph % (Auto) [place] % (Auto) Lymph # (Auto) [place] # (Auto) Baso # (Auto) Seg Neutrophils % Seg Neuts % (Manual) Lymphocytes % (Manual) Seg Neutrophils # Seg Neutrophils # Man Lymphocytes # (Manual) D-Dimer ABG pH POC ABG pCO2 60.8 H POC ABG pO2 51.1 L ABG pO2 ABG HCO3 ABG O2 Saturation ABG Base Excess ABG Hemoglobin ABG Oxyhemoglobin 84.6 L ABG Sodium ABG Potassium ABG Chloride ABG Glucose 315 H Oxyhemoglobin Carboxyhemoglobin Sodium Potassium Chloride Carbon Dioxide BUN Creatinine Glucose POC Glucose 295 H 413 H Hemoglobin A1c Lactic Acid Calcium Ferritin Total Bilirubin AST ALT Alkaline Phosphatase Lactate Dehydrogenase C-Reactive Protein Total Protein Albumin Triglycerides Arterial Blood Glucose 315 H Arterial Blood Ionized Calcium 4.5 L Ur Specific [place] Vancomycin Trough Coronavirus (PCR) 11/30/20 11/30/20 12/01/20 17:24 23:25 02:14 WBC RBC Hgb Hct Plt Count Lymph % (Auto) [place] % (Auto) Lymph # (Auto) [place] # (Auto) Baso # (Auto) Seg Neutrophils % Seg Neuts % (Manual) Lymphocytes % (Manual) Seg Neutrophils # Seg Neutrophils # Man Lymphocytes # (Manual) D-Dimer ABG pH 7.278 L POC ABG pCO2 78.1 H POC ABG pO2 79.5 L ABG pO2 ABG HCO3 ABG O2 Saturation ABG Base Excess ABG Hemoglobin 11.6 L ABG Oxyhemoglobin ABG Sodium 134.5 L ABG Potassium 4.6 H ABG Chloride ABG Glucose 286 H Oxyhemoglobin Carboxyhemoglobin Sodium Potassium Chloride Carbon Dioxide BUN Creatinine Glucose POC Glucose 305 H 302 H Hemoglobin A1c Lactic Acid Calcium Ferritin Total Bilirubin AST ALT Alkaline Phosphatase Lactate Dehydrogenase C-Reactive Protein Total Protein Albumin Triglycerides Arterial Blood Glucose 286 H Arterial Blood Ionized Calcium Ur Specific [place] Vancomycin Trough Coronavirus (PCR) 12/01/20 12/01/20 12/01/20 03:35 03:35 05:22 WBC 13.4 H RBC 3.54 L Hgb 10.4 L Hct 31.8 L Plt Count Lymph % (Auto) [place] % (Auto) Lymph # (Auto) [place] # (Auto) Baso # (Auto) Seg Neutrophils % Seg Neuts % (Manual) 95.0 H Lymphocytes % (Manual) 3.0 L Seg Neutrophils # Seg Neutrophils # Man 12.7 H Lymphocytes # (Manual) 0.4 L D-Dimer ABG pH POC ABG pCO2 POC ABG pO2 ABG pO2 ABG HCO3 ABG O2 Saturation ABG Base Excess ABG Hemoglobin ABG Oxyhemoglobin ABG Sodium ABG Potassium ABG Chloride ABG Glucose Oxyhemoglobin Carboxyhemoglobin Sodium Potassium Chloride Carbon Dioxide 35 H BUN 34 H Creatinine 0.5 L Glucose 279 H POC Glucose 259 H Hemoglobin A1c Lactic Acid Calcium 7.6 L Ferritin Total Bilirubin AST ALT 63 H Alkaline Phosphatase Lactate Dehydrogenase C-Reactive Protein Total Protein 4.8 L Albumin 2.1 L Triglycerides Arterial Blood Glucose Arterial Blood Ionized Calcium Ur Specific [place] Vancomycin Trough Coronavirus (PCR) 12/01/20 12/01/20 12/01/20 12:05 17:40 23:46 WBC RBC Hgb Hct Plt Count Lymph % (Auto) [place] % (Auto) Lymph # (Auto) [place] # (Auto) Baso # (Auto) Seg Neutrophils % Seg Neuts % (Manual) Lymphocytes % (Manual) Seg Neutrophils # Seg Neutrophils # Man Lymphocytes # (Manual) D-Dimer ABG pH POC ABG pCO2 POC ABG pO2 ABG pO2 ABG HCO3 ABG O2 Saturation ABG Base Excess ABG Hemoglobin ABG Oxyhemoglobin ABG Sodium ABG Potassium ABG Chloride ABG Glucose Oxyhemoglobin Carboxyhemoglobin Sodium Potassium Chloride Carbon Dioxide BUN Creatinine Glucose POC Glucose 197 H 244 H 284 H Hemoglobin A1c Lactic Acid Calcium Ferritin Total Bilirubin AST ALT Alkaline Phosphatase Lactate Dehydrogenase C-Reactive Protein Total Protein Albumin Triglycerides Arterial Blood Glucose Arterial Blood Ionized Calcium Ur Specific [place] Vancomycin Trough Coronavirus (PCR) 12/02/20 12/02/20 12/02/20 02:14 03:03 04:11 WBC 16.5 H RBC 3.55 L Hgb 10.5 L Hct 31.9 L Plt Count Lymph % (Auto) [place] % (Auto) Lymph # (Auto) [place] # (Auto) Baso # (Auto) Seg Neutrophils % Seg Neuts % (Manual) 90.0 H Lymphocytes % (Manual) 3.0 L Seg Neutrophils # Seg Neutrophils # Man 14.9 H Lymphocytes # (Manual) 0.5 L D-Dimer ABG pH POC ABG pCO2 74.8 H POC ABG pO2 58.9 L ABG pO2 ABG HCO3 ABG O2 Saturation ABG Base Excess ABG Hemoglobin 11.5 L ABG Oxyhemoglobin ABG Sodium ABG Potassium ABG Chloride ABG Glucose 264 H Oxyhemoglobin Carboxyhemoglobin Sodium Potassium Chloride Carbon Dioxide 37 H BUN 30 H Creatinine 0.4 L Glucose 245 H POC Glucose Hemoglobin A1c Lactic Acid Calcium 7.5 L Ferritin Total Bilirubin AST ALT Alkaline Phosphatase Lactate Dehydrogenase C-Reactive Protein Total Protein 5.2 L Albumin 2.2 L Triglycerides Arterial Blood Glucose 264 H Arterial Blood Ionized Calcium 4.5 L Ur Specific [place] Vancomycin Trough Coronavirus (PCR) 12/02/20 12/02/20 12/02/20 05:19 11:46 17:52 WBC RBC Hgb Hct Plt Count Lymph % (Auto) [place] % (Auto) Lymph # (Auto) [place] # (Auto) Baso # (Auto) Seg Neutrophils % Seg Neuts % (Manual) Lymphocytes % (Manual) Seg Neutrophils # Seg Neutrophils # Man Lymphocytes # (Manual) D-Dimer ABG pH POC ABG pCO2 POC ABG pO2 ABG pO2 ABG HCO3 ABG O2 Saturation ABG Base Excess ABG Hemoglobin ABG Oxyhemoglobin ABG Sodium ABG Potassium ABG Chloride ABG Glucose Oxyhemoglobin Carboxyhemoglobin Sodium Potassium Chloride Carbon Dioxide BUN Creatinine Glucose POC Glucose 238 H 236 H 233 H Hemoglobin A1c Lactic Acid Calcium Ferritin Total Bilirubin AST ALT Alkaline Phosphatase Lactate Dehydrogenase C-Reactive Protein Total Protein Albumin Triglycerides Arterial Blood Glucose Arterial Blood Ionized Calcium Ur Specific [place] Vancomycin Trough Coronavirus (PCR) 12/02/20 12/03/20 12/03/20 23:23 03:21 04:35 WBC RBC Hgb Hct Plt Count 112 L Lymph % (Auto) [place] % (Auto) Lymph # (Auto) [place] # (Auto) Baso # (Auto) Seg Neutrophils % Seg Neuts % (Manual) 93.0 H Lymphocytes % (Manual) 4.0 L Seg Neutrophils # Seg Neutrophils # Man 9.1 H Lymphocytes # (Manual) 0.4 L D-Dimer ABG pH 7.299 L POC ABG pCO2 82.1 H POC ABG pO2 62.4 L ABG pO2 ABG HCO3 ABG O2 Saturation ABG Base Excess ABG Hemoglobin 11.5 L ABG Oxyhemoglobin 89.6 L ABG Sodium 134.3 L ABG Potassium ABG Chloride 95.0 L ABG Glucose 203 H Oxyhemoglobin Carboxyhemoglobin Sodium Potassium Chloride Carbon Dioxide BUN Creatinine Glucose POC Glucose 213 H Hemoglobin A1c Lactic Acid Calcium Ferritin Total Bilirubin AST ALT Alkaline Phosphatase Lactate Dehydrogenase C-Reactive Protein Total Protein Albumin Triglycerides Arterial Blood Glucose 203 H Arterial Blood Ionized Calcium 4.5 L Ur Specific [place] Vancomycin Trough Coronavirus (PCR) 12/03/20 12/03/20 12/03/20 04:35 05:42 11:28 WBC RBC Hgb Hct Plt Count Lymph % (Auto) [place] % (Auto) Lymph # (Auto) [place] # (Auto) Baso # (Auto) Seg Neutrophils % Seg Neuts % (Manual) Lymphocytes % (Manual) Seg Neutrophils # Seg Neutrophils # Man Lymphocytes # (Manual) D-Dimer ABG pH POC ABG pCO2 POC ABG pO2 ABG pO2 ABG HCO3 ABG O2 Saturation ABG Base Excess ABG Hemoglobin ABG Oxyhemoglobin ABG Sodium ABG Potassium ABG Chloride ABG Glucose Oxyhemoglobin Carboxyhemoglobin Sodium Potassium Chloride 97.8 L Carbon Dioxide 43 H* BUN 25 H Creatinine 0.3 L Glucose 214 H POC Glucose 193 H 211 H Hemoglobin A1c Lactic Acid Calcium 7.7 L Ferritin Total Bilirubin AST ALT 63 H Alkaline Phosphatase 132 H Lactate Dehydrogenase C-Reactive Protein Total Protein 5.1 L Albumin 2.4 L Triglycerides Arterial Blood Glucose Arterial Blood Ionized Calcium Ur Specific [place] Vancomycin Trough Coronavirus (PCR) 12/03/20 12/03/20 12/04/20 17:45 23:57 00:11 WBC RBC Hgb Hct Plt Count Lymph % (Auto) [place] % (Auto) Lymph # (Auto) [place] # (Auto) Baso # (Auto) Seg Neutrophils % Seg Neuts % (Manual) Lymphocytes % (Manual) Seg Neutrophils # Seg Neutrophils # Man Lymphocytes # (Manual) D-Dimer ABG pH POC ABG pCO2 POC ABG pO2 ABG pO2 ABG HCO3 ABG O2 Saturation ABG Base Excess ABG Hemoglobin ABG Oxyhemoglobin ABG Sodium ABG Potassium ABG Chloride ABG Glucose Oxyhemoglobin Carboxyhemoglobin Sodium Potassium Chloride Carbon Dioxide BUN Creatinine Glucose POC Glucose 231 H 240 H 239 H Hemoglobin A1c Lactic Acid Calcium Ferritin Total Bilirubin AST ALT Alkaline Phosphatase Lactate Dehydrogenase C-Reactive Protein Total Protein Albumin Triglycerides Arterial Blood Glucose Arterial Blood Ionized Calcium Ur Specific [place] Vancomycin Trough Coronavirus (PCR) 12/04/20 12/04/20 12/04/20 04:00 05:20 05:34 WBC RBC Hgb Hct Plt Count Lymph % (Auto) [place] % (Auto) Lymph # (Auto) [place] # (Auto) Baso # (Auto) Seg Neutrophils % Seg Neuts % (Manual) Lymphocytes % (Manual) Seg Neutrophils # Seg Neutrophils # Man Lymphocytes # (Manual) D-Dimer ABG pH POC ABG pCO2 84.4 H POC ABG pO2 68.0 L ABG pO2 ABG HCO3 ABG O2 Saturation ABG Base Excess ABG Hemoglobin 11.6 L ABG Oxyhemoglobin ABG Sodium 130.9 L ABG Potassium ABG Chloride 90.0 L ABG Glucose 244 H Oxyhemoglobin Carboxyhemoglobin Sodium Potassium Chloride Carbon Dioxide BUN Creatinine Glucose POC Glucose 241 H 213 H Hemoglobin A1c Lactic Acid Calcium Ferritin Total Bilirubin AST ALT Alkaline Phosphatase Lactate Dehydrogenase C-Reactive Protein Total Protein Albumin Triglycerides Arterial Blood Glucose 244 H Arterial Blood Ionized Calcium 4.4 L Ur Specific [place] Vancomycin Trough Coronavirus (PCR) 12/04/20 12/04/20 12/04/20 11:36 16:53 23:32 WBC RBC Hgb Hct Plt Count Lymph % (Auto) [place] % (Auto) Lymph # (Auto) [place] # (Auto) Baso # (Auto) Seg Neutrophils % Seg Neuts % (Manual) Lymphocytes % (Manual) Seg Neutrophils # Seg Neutrophils # Man Lymphocytes # (Manual) D-Dimer ABG pH POC ABG pCO2 POC ABG pO2 ABG pO2 ABG HCO3 ABG O2 Saturation ABG Base Excess ABG Hemoglobin ABG Oxyhemoglobin ABG Sodium ABG Potassium ABG Chloride ABG Glucose Oxyhemoglobin Carboxyhemoglobin Sodium Potassium Chloride Carbon Dioxide BUN Creatinine Glucose POC Glucose 196 H 127 H 230 H Hemoglobin A1c Lactic Acid Calcium Ferritin Total Bilirubin AST ALT Alkaline Phosphatase Lactate Dehydrogenase C-Reactive Protein Total Protein Albumin Triglycerides Arterial Blood Glucose Arterial Blood Ionized Calcium Ur Specific [place] Vancomycin Trough Coronavirus (PCR) 12/04/20 12/05/20 12/05/20 Unknown 04:16 05:21 WBC RBC Hgb Hct Plt Count Lymph % (Auto) [place] % (Auto) Lymph # (Auto) [place] # (Auto) Baso # (Auto) Seg Neutrophils % Seg Neuts % (Manual) Lymphocytes % (Manual) Seg Neutrophils # Seg Neutrophils # Man Lymphocytes # (Manual) D-Dimer ABG pH POC ABG pCO2 86.7 H POC ABG pO2 58.0 L ABG pO2 ABG HCO3 ABG O2 Saturation ABG Base Excess ABG Hemoglobin 11.6 L ABG Oxyhemoglobin 89 L ABG Sodium 130.1 L ABG Potassium 4.9 H ABG Chloride 89.0 L ABG Glucose 254 H Oxyhemoglobin Carboxyhemoglobin Sodium 136 L Potassium Chloride 90.0 L Carbon Dioxide 46 H* BUN 24 H Creatinine 0.3 L Glucose 226 H POC Glucose 213 H Hemoglobin A1c Lactic Acid Calcium 7.6 L Ferritin Total Bilirubin AST 46 H ALT 78 H Alkaline Phosphatase 172 H Lactate Dehydrogenase C-Reactive Protein Total Protein 6.0 L Albumin 2.8 L Triglycerides 156 H Arterial Blood Glucose 254 H Arterial Blood Ionized Calcium 4.4 L Ur Specific [place] Vancomycin Trough Coronavirus (PCR) 12/05/20 12/05/20 12/05/20 11:22 17:26 23:38 WBC RBC Hgb Hct Plt Count Lymph % (Auto) [place] % (Auto) Lymph # (Auto) [place] # (Auto) Baso # (Auto) Seg Neutrophils % Seg Neuts % (Manual) Lymphocytes % (Manual) Seg Neutrophils # Seg Neutrophils # Man Lymphocytes # (Manual) D-Dimer ABG pH POC ABG pCO2 POC ABG pO2 ABG pO2 ABG HCO3 ABG O2 Saturation ABG Base Excess ABG Hemoglobin ABG Oxyhemoglobin ABG Sodium ABG Potassium ABG Chloride ABG Glucose Oxyhemoglobin Carboxyhemoglobin Sodium Potassium Chloride Carbon Dioxide BUN Creatinine Glucose POC Glucose 212 H 157 H 204 H Hemoglobin A1c Lactic Acid Calcium Ferritin Total Bilirubin AST ALT Alkaline Phosphatase Lactate Dehydrogenase C-Reactive Protein Total Protein Albumin Triglycerides Arterial Blood Glucose Arterial Blood Ionized Calcium Ur Specific [place] Vancomycin Trough Coronavirus (PCR) 12/06/20 12/06/20 12/06/20 04:31 04:31 05:12 WBC 17.0 H RBC 3.63 L Hgb 10.8 L D Hct 32.6 L D Plt Count Lymph % (Auto) [place] % (Auto) Lymph # (Auto) [place] # (Auto) Baso # (Auto) Seg Neutrophils % Seg Neuts % (Manual) Lymphocytes % (Manual) Seg Neutrophils # Seg Neutrophils # Man Lymphocytes # (Manual) D-Dimer ABG pH POC ABG pCO2 85.9 H POC ABG pO2 57.6 L ABG pO2 ABG HCO3 ABG O2 Saturation ABG Base Excess ABG Hemoglobin ABG Oxyhemoglobin ABG Sodium 131.2 L ABG Potassium 4.8 H ABG Chloride 86.0 L ABG Glucose 200 H Oxyhemoglobin Carboxyhemoglobin Sodium 134 L Potassium 5.1 H Chloride 88.4 L Carbon Dioxide 47 H* BUN 23 H Creatinine 0.3 L Glucose 206 H POC Glucose Hemoglobin A1c Lactic Acid Calcium 8.3 L Ferritin Total Bilirubin AST 48 H ALT 91 H Alkaline Phosphatase 140 H Lactate Dehydrogenase C-Reactive Protein Total Protein 5.7 L Albumin 2.6 L Triglycerides Arterial Blood Glucose 200 H Arterial Blood Ionized Calcium 4.4 L Ur Specific [place] Vancomycin Trough Coronavirus (PCR) 12/06/20 12/06/20 12/06/20 05:24 12:18 16:45 WBC RBC Hgb Hct Plt Count Lymph % (Auto) [place] % (Auto) Lymph # (Auto) [place] # (Auto) Baso # (Auto) Seg Neutrophils % Seg Neuts % (Manual) Lymphocytes % (Manual) Seg Neutrophils # Seg Neutrophils # Man Lymphocytes # (Manual) D-Dimer ABG pH POC ABG pCO2 POC ABG pO2 ABG pO2 ABG HCO3 ABG O2 Saturation ABG Base Excess ABG Hemoglobin ABG Oxyhemoglobin ABG Sodium ABG Potassium ABG Chloride ABG Glucose Oxyhemoglobin Carboxyhemoglobin Sodium Potassium Chloride Carbon Dioxide BUN Creatinine Glucose POC Glucose 186 H 187 H 150 H Hemoglobin A1c Lactic Acid Calcium Ferritin Total Bilirubin AST ALT Alkaline Phosphatase Lactate Dehydrogenase C-Reactive Protein Total Protein Albumin Triglycerides Arterial Blood Glucose Arterial Blood Ionized Calcium Ur Specific [place] Vancomycin Trough Coronavirus (PCR) 12/06/20 12/07/20 12/07/20 23:43 05:20 05:21 WBC RBC Hgb Hct Plt Count Lymph % (Auto) [place] % (Auto) Lymph # (Auto) [place] # (Auto) Baso # (Auto) Seg Neutrophils % Seg Neuts % (Manual) Lymphocytes % (Manual) Seg Neutrophils # Seg Neutrophils # Man Lymphocytes # (Manual) D-Dimer ABG pH POC ABG pCO2 POC ABG pO2 ABG pO2 48.4 L ABG HCO3 50.8 H ABG O2 Saturation 86.2 L ABG Base Excess 22.4 H ABG Hemoglobin 11.0 L ABG Oxyhemoglobin ABG Sodium ABG Potassium ABG Chloride ABG Glucose Oxyhemoglobin 84.0 L Carboxyhemoglobin Sodium Potassium Chloride Carbon Dioxide BUN Creatinine Glucose POC Glucose 153 H 107 H Hemoglobin A1c Lactic Acid Calcium Ferritin Total Bilirubin AST ALT Alkaline Phosphatase Lactate Dehydrogenase C-Reactive Protein Total Protein Albumin Triglycerides Arterial Blood Glucose Arterial Blood Ionized Calcium Ur Specific [place] Vancomycin Trough Coronavirus (PCR) 12/07/20 12/07/20 12/07/20 13:20 14:28 17:35 WBC RBC Hgb Hct Plt Count Lymph % (Auto) [place] % (Auto) Lymph # (Auto) [place] # (Auto) Baso # (Auto) Seg Neutrophils % Seg Neuts % (Manual) Lymphocytes % (Manual) Seg Neutrophils # Seg Neutrophils # Man Lymphocytes # (Manual) D-Dimer ABG pH POC ABG pCO2 74.1 H POC ABG pO2 68.5 L ABG pO2 ABG HCO3 ABG O2 Saturation ABG Base Excess ABG Hemoglobin 10.7 L ABG Oxyhemoglobin 91.9 L ABG Sodium 132.2 L ABG Potassium 4.7 H ABG Chloride 88.0 L ABG Glucose 138 H Oxyhemoglobin Carboxyhemoglobin Sodium 134 L Potassium Chloride 87.4 L Carbon Dioxide 49 H* BUN Creatinine 0.2 L Glucose 132 H POC Glucose 176 H Hemoglobin A1c Lactic Acid Calcium 7.7 L Ferritin Total Bilirubin AST ALT Alkaline Phosphatase Lactate Dehydrogenase C-Reactive Protein Total Protein Albumin Triglycerides Arterial Blood Glucose 138 H Arterial Blood Ionized Calcium 4.0 L Ur Specific [place] Vancomycin Trough Coronavirus (PCR) 02/22/21 02/23/21 02/23/21 23:44 04:12 05:29 WBC RBC Hgb Hct Plt Count Lymph % (Auto) [place] % (Auto) Lymph # (Auto) [place] # (Auto) Baso # (Auto) Seg Neutrophils % Seg Neuts % (Manual) Lymphocytes % (Manual) Seg Neutrophils # Seg Neutrophils # Man Lymphocytes # (Manual) D-Dimer ABG pH POC ABG pCO2 POC ABG pO2 ABG pO2 69.7 L ABG HCO3 50.1 H ABG O2 Saturation ABG Base Excess 21.6 H ABG Hemoglobin 10.9 L ABG Oxyhemoglobin ABG Sodium ABG Potassium ABG Chloride ABG Glucose Oxyhemoglobin 93.2 L Carboxyhemoglobin Sodium Potassium Chloride Carbon Dioxide BUN Creatinine Glucose POC Glucose 143 H 143 H Hemoglobin A1c Lactic Acid Calcium Ferritin Total Bilirubin AST ALT Alkaline Phosphatase Lactate Dehydrogenase C-Reactive Protein Total Protein Albumin Triglycerides Arterial Blood Glucose Arterial Blood Ionized Calcium Ur Specific [place] Vancomycin Trough Coronavirus (PCR) 12/08/20 12/08/20 12/09/20 06:10 06:10 04:24 WBC 12.0 H RBC 3.18 L Hgb 9.5 L Hct 28.9 L Plt Count Lymph % (Auto) [place] % (Auto) Lymph # (Auto) [place] # (Auto) Baso # (Auto) Seg Neutrophils % Seg Neuts % (Manual) 95.0 H Lymphocytes % (Manual) 3.0 L Seg Neutrophils # Seg Neutrophils # Man 11.4 H Lymphocytes # (Manual) 0.4 L D-Dimer ABG pH POC ABG pCO2 76.2 H POC ABG pO2 52.8 L ABG pO2 ABG HCO3 ABG O2 Saturation ABG Base Excess ABG Hemoglobin 11.7 L ABG Oxyhemoglobin ABG Sodium 132.0 L ABG Potassium ABG Chloride 87.0 L ABG Glucose 118 H Oxyhemoglobin Carboxyhemoglobin Sodium 133 L Potassium Chloride 86.3 L Carbon Dioxide 53 H* BUN Creatinine 0.2 L Glucose 156 H POC Glucose Hemoglobin A1c Lactic Acid Calcium 7.6 L Ferritin Total Bilirubin AST ALT Alkaline Phosphatase Lactate Dehydrogenase C-Reactive Protein Total Protein Albumin Triglycerides Arterial Blood Glucose 118 H Arterial Blood Ionized Calcium 4.2 L Ur Specific [place] Vancomycin Trough Coronavirus (PCR) 12/09/20 12/09/20 12/09/20 05:44 06:40 06:40 WBC 13.5 H RBC 3.28 L Hgb 9.7 L Hct 29.9 L Plt Count Lymph % (Auto) [place] % (Auto) Lymph # (Auto) [place] # (Auto) Baso # (Auto) Seg Neutrophils % Seg Neuts % (Manual) Lymphocytes % (Manual) Seg Neutrophils # Seg Neutrophils # Man Lymphocytes # (Manual) D-Dimer ABG pH POC ABG pCO2 POC ABG pO2 ABG pO2 ABG HCO3 ABG O2 Saturation ABG Base Excess ABG Hemoglobin ABG Oxyhemoglobin ABG Sodium ABG Potassium ABG Chloride ABG Glucose Oxyhemoglobin Carboxyhemoglobin Sodium 135 L Potassium Chloride 89.5 L Carbon Dioxide 52 H* BUN Creatinine 0.3 L Glucose 114 H POC Glucose 117 H Hemoglobin A1c Lactic Acid Calcium 7.6 L Ferritin Total Bilirubin AST ALT Alkaline Phosphatase Lactate Dehydrogenase C-Reactive Protein Total Protein Albumin Triglycerides Arterial Blood Glucose Arterial Blood Ionized Calcium Ur Specific [place] Vancomycin Trough Coronavirus (PCR) 12/09/20 12/09/20 12/10/20 16:42 21:11 04:28 WBC RBC Hgb Hct Plt Count Lymph % (Auto) [place] % (Auto) Lymph # (Auto) [place] # (Auto) Baso # (Auto) Seg Neutrophils % Seg Neuts % (Manual) Lymphocytes % (Manual) Seg Neutrophils # Seg Neutrophils # Man Lymphocytes # (Manual) D-Dimer ABG pH POC ABG pCO2 72.5 H 69.4 H 76.9 H POC ABG pO2 50.4 L 80.6 L 60.2 L ABG pO2 ABG HCO3 ABG O2 Saturation ABG Base Excess ABG Hemoglobin 10.4 L 10.7 L 10 L ABG Oxyhemoglobin 84.3 L 89.7 L ABG Sodium 133.7 L 133.7 L 133.8 L ABG Potassium ABG Chloride 90.0 L 91.0 L 91.0 L ABG Glucose 116 H 96 H 57 L Oxyhemoglobin Carboxyhemoglobin 0.4 L Sodium Potassium Chloride Carbon Dioxide BUN Creatinine Glucose POC Glucose Hemoglobin A1c Lactic Acid Calcium Ferritin Total Bilirubin AST ALT Alkaline Phosphatase Lactate Dehydrogenase C-Reactive Protein Total Protein Albumin Triglycerides Arterial Blood Glucose 116 H 96 H 57 L Arterial Blood Ionized Calcium 4.2 L 4.3 L 4.2 L Ur Specific [place] Vancomycin Trough Coronavirus (PCR) 12/10/20 12/10/20 12/10/20 05:09 05:41 11:50 WBC RBC Hgb Hct Plt Count Lymph % (Auto) [place] % (Auto) Lymph # (Auto) [place] # (Auto) Baso # (Auto) Seg Neutrophils % Seg Neuts % (Manual) Lymphocytes % (Manual) Seg Neutrophils # Seg Neutrophils # Man Lymphocytes # (Manual) D-Dimer ABG pH POC ABG pCO2 POC ABG pO2 ABG pO2 ABG HCO3 ABG O2 Saturation ABG Base Excess ABG Hemoglobin ABG Oxyhemoglobin ABG Sodium ABG Potassium ABG Chloride ABG Glucose Oxyhemoglobin Carboxyhemoglobin Sodium Potassium Chloride Carbon Dioxide BUN Creatinine Glucose POC Glucose 41 L 138 H 106 H Hemoglobin A1c Lactic Acid Calcium Ferritin Total Bilirubin AST ALT Alkaline Phosphatase Lactate Dehydrogenase C-Reactive Protein Total Protein Albumin Triglycerides Arterial Blood Glucose Arterial Blood Ionized Calcium Ur Specific [place] Vancomycin Trough Coronavirus (PCR) 12/10/20 12/10/20 12/11/20 17:34 23:25 04:06 WBC RBC Hgb Hct Plt Count Lymph % (Auto) [place] % (Auto) Lymph # (Auto) [place] # (Auto) Baso # (Auto) Seg Neutrophils % Seg Neuts % (Manual) Lymphocytes % (Manual) Seg Neutrophils # Seg Neutrophils # Man Lymphocytes # (Manual) D-Dimer ABG pH POC ABG pCO2 71.0 H POC ABG pO2 56.8 L ABG pO2 ABG HCO3 ABG O2 Saturation ABG Base Excess ABG Hemoglobin 10.1 L ABG Oxyhemoglobin 88.5 L ABG Sodium 132.3 L ABG Potassium ABG Chloride 91.0 L ABG Glucose 168 H Oxyhemoglobin Carboxyhemoglobin Sodium Potassium Chloride Carbon Dioxide BUN Creatinine Glucose POC Glucose 121 H 167 H Hemoglobin A1c Lactic Acid Calcium Ferritin Total Bilirubin AST ALT Alkaline Phosphatase Lactate Dehydrogenase C-Reactive Protein Total Protein Albumin Triglycerides Arterial Blood Glucose 168 H Arterial Blood Ionized Calcium 4.1 L Ur Specific [place] Vancomycin Trough Coronavirus (PCR) 12/11/20 12/11/20 12/11/20 05:21 11:44 15:40 WBC RBC Hgb Hct Plt Count Lymph % (Auto) [place] % (Auto) Lymph # (Auto) [place] # (Auto) Baso # (Auto) Seg Neutrophils % Seg Neuts % (Manual) Lymphocytes % (Manual) Seg Neutrophils # Seg Neutrophils # Man Lymphocytes # (Manual) D-Dimer ABG pH 7.454 H POC ABG pCO2 58.6 H POC ABG pO2 50.7 L ABG pO2 ABG HCO3 ABG O2 Saturation ABG Base Excess ABG Hemoglobin 10.1 L ABG Oxyhemoglobin 86.2 L ABG Sodium 131.2 L ABG Potassium ABG Chloride 92.0 L ABG Glucose 197 H Oxyhemoglobin Carboxyhemoglobin Sodium Potassium Chloride Carbon Dioxide BUN Creatinine Glucose POC Glucose 149 H 202 H Hemoglobin A1c Lactic Acid Calcium Ferritin Total Bilirubin AST ALT Alkaline Phosphatase Lactate Dehydrogenase C-Reactive Protein Total Protein Albumin Triglycerides Arterial Blood Glucose 197 H Arterial Blood Ionized Calcium 4.2 L Ur Specific [place] Vancomycin Trough Coronavirus (PCR) 12/11/20 12/11/20 12/12/20 17:09 23:16 05:09 WBC RBC Hgb Hct Plt Count Lymph % (Auto) [place] % (Auto) Lymph # (Auto) [place] # (Auto) Baso # (Auto) Seg Neutrophils % Seg Neuts % (Manual) Lymphocytes % (Manual) Seg Neutrophils # Seg Neutrophils # Man Lymphocytes # (Manual) D-Dimer ABG pH POC ABG pCO2 63.1 H POC ABG pO2 62.6 L ABG pO2 ABG HCO3 ABG O2 Saturation ABG Base Excess ABG Hemoglobin 10.3 L ABG Oxyhemoglobin ABG Sodium 130.3 L ABG Potassium 4.6 H ABG Chloride 92.0 L ABG Glucose 215 H Oxyhemoglobin Carboxyhemoglobin Sodium Potassium Chloride Carbon Dioxide BUN Creatinine Glucose POC Glucose 181 H 192 H Hemoglobin A1c Lactic Acid Calcium Ferritin Total Bilirubin AST ALT Alkaline Phosphatase Lactate Dehydrogenase C-Reactive Protein Total Protein Albumin Triglycerides Arterial Blood Glucose 215 H Arterial Blood Ionized Calcium 4.4 L Ur Specific [place] Vancomycin Trough Coronavirus (PCR) 12/12/20 12/12/20 12/12/20 05:16 05:47 11:41 WBC RBC Hgb Hct Plt Count Lymph % (Auto) [place] % (Auto) Lymph # (Auto) [place] # (Auto) Baso # (Auto) Seg Neutrophils % Seg Neuts % (Manual) Lymphocytes % (Manual) Seg Neutrophils # Seg Neutrophils # Man Lymphocytes # (Manual) D-Dimer ABG pH POC ABG pCO2 POC ABG pO2 ABG pO2 ABG HCO3 ABG O2 Saturation ABG Base Excess ABG Hemoglobin ABG Oxyhemoglobin ABG Sodium ABG Potassium ABG Chloride ABG Glucose Oxyhemoglobin Carboxyhemoglobin Sodium Potassium Chloride Carbon Dioxide BUN Creatinine Glucose POC Glucose 208 H 218 H Hemoglobin A1c Lactic Acid Calcium Ferritin Total Bilirubin AST ALT Alkaline Phosphatase Lactate Dehydrogenase C-Reactive Protein Total Protein Albumin Triglycerides 150 H Arterial Blood Glucose Arterial Blood Ionized Calcium Ur Specific [place] Vancomycin Trough Coronavirus (PCR) 12/12/20 12/12/20 12/13/20 17:05 23:18 03:36 WBC RBC Hgb Hct Plt Count Lymph % (Auto) [place] % (Auto) Lymph # (Auto) [place] # (Auto) Baso # (Auto) Seg Neutrophils % Seg Neuts % (Manual) Lymphocytes % (Manual) Seg Neutrophils # Seg Neutrophils # Man Lymphocytes # (Manual) D-Dimer ABG pH POC ABG pCO2 61.5 H POC ABG pO2 77.6 L ABG pO2 ABG HCO3 ABG O2 Saturation ABG Base Excess ABG Hemoglobin 10.2 L ABG Oxyhemoglobin ABG Sodium 127.5 L ABG Potassium ABG Chloride 91.0 L ABG Glucose 232 H Oxyhemoglobin Carboxyhemoglobin Sodium Potassium Chloride Carbon Dioxide BUN Creatinine Glucose POC Glucose 187 H 176 H Hemoglobin A1c Lactic Acid Calcium Ferritin Total Bilirubin AST ALT Alkaline Phosphatase Lactate Dehydrogenase C-Reactive Protein Total Protein Albumin Triglycerides Arterial Blood Glucose 232 H Arterial Blood Ionized Calcium 4.2 L Ur Specific [place] Vancomycin Trough Coronavirus (PCR) 12/13/20 05:13 WBC RBC Hgb Hct Plt Count Lymph % (Auto) [place] % (Auto) Lymph # (Auto) [place] # (Auto) Baso # (Auto) Seg Neutrophils % Seg Neuts % (Manual) Lymphocytes % (Manual) Seg Neutrophils # Seg Neutrophils # Man Lymphocytes # (Manual) D-Dimer ABG pH POC ABG pCO2 POC ABG pO2 ABG pO2 ABG HCO3 ABG O2 Saturation ABG Base Excess ABG Hemoglobin ABG Oxyhemoglobin ABG Sodium ABG Potassium ABG Chloride ABG Glucose Oxyhemoglobin Carboxyhemoglobin Sodium Potassium Chloride Carbon Dioxide BUN Creatinine Glucose POC Glucose 204 H Hemoglobin A1c Lactic Acid Calcium Ferritin Total Bilirubin AST ALT Alkaline Phosphatase Lactate Dehydrogenase C-Reactive Protein Total Protein Albumin Triglycerides Arterial Blood Glucose Arterial Blood Ionized Calcium Ur Specific [place] Vancomycin Trough Coronavirus (PCR)
[2020-12-13] MEDS: MIDAZOLAM 100 MG in SODIUM CHLORIDE 0.9% 80 ML IV SCH (11:54)
[2020-12-13 12:26] LABS: Hematocrit 31.9 % (35.5-45.6); Hemoglobin 10.5 gm/dl (11.8-15.2); Mean Corpuscular HGB Conc 33 % (32-34); Mean Corpuscular Volume 91 fl (84-94); Platelet Count 246 K/mm3 (140-440)
[2020-12-13 12:44] LABS: Alanine Aminotransferase 61 units/L (7-56); Albumin 2.3 g/dL (3.9-5); Blood Urea Nitrogen 14 mg/dL (9-20); Calcium 7.4 mg/dL (8.4-10.2); Hemolysis Index 4
[2020-12-13 12:49] LABS: BUN/Creatinine Ratio 70
[2020-12-13 15:02] LABS: Band Neutrophils # (Manual) 0.2 K/mm3; Total Cells Counted 100
[2020-12-13 15:03] LABS: Anisocytosis RARE
[2020-12-13 15:04] LABS: Platelet Estimate Consistent w Auto
[2020-12-13] MEDS: ENOXAPARIN 40 MG/0.4 ML INJ SUB-Q SCH (21:11)
[2020-12-14] MEDS: fentaNYL DRIP Premix 2,000 MCG/100 ML BAG IV SCH ×4 (02:25→22:02)
[2020-12-14] MEDS: INSULIN LISPRO 100 UNIT/ML SUB-Q SCH ×3 (05:30→17:43)
[2020-12-14 05:50] LABS: Hematocrit 30.7 % (35.5-45.6); Hemoglobin 10.1 gm/dl (11.8-15.2); Mean Corpuscular HGB Conc 33 % (32-34); Mean Corpuscular Volume 91 fl (84-94); Platelet Count 253 K/mm3 (140-440); Red Blood Count 3.37 M/mm3 (3.65-5.03); Red Cell Distribution Width 15.4 % (13.2-15.2)
[2020-12-14 06:02] LABS: Blood Urea Nitrogen 12 mg/dL (9-20); Calcium 7.7 mg/dL (8.4-10.2); Hemolysis Index 89
[2020-12-14 06:03] LABS: BUN/Creatinine Ratio 60
[2020-12-14] MEDS: NORepinephrine/NS 4 MG-250 ML 4 MG/250 ML BAG IV SCH ×3 (06:37→21:19)
[2020-12-14 06:53] LABS: Anisocytosis Few; Hypochromasia Few; Total Cells Counted 100
[2020-12-14 06:54] LABS: Platelet Estimate Consistent w Auto
[2020-12-14] MEDS: MIDAZOLAM 100 MG in SODIUM CHLORIDE 0.9% 80 ML IV SCH (08:00)
[2020-12-14] MEDS: CEFEPIME/NS 2 GM/100 ML 2 GM/100 ML BAG IV SCH (08:23)
[2020-12-14] MEDS: FAMOTIDINE 20 MG/2 ML INJ IV SCH ×2 (09:06→21:11)
[2020-12-14] MEDS: SENNOSIDES/DOCUSATE SODIUM 8.6/50 MG TAB PO SCH ×2 (09:07→21:11)
[2020-12-14] MEDS: methylPREDNISolone Sod Succinate 40 MG/1 ML INJ IV SCH (09:07)
--- NOTE | 2020-12-14 09:41 | XRay Report ---
CHEST 1 VIEW 12/14/2020 8:31 AM INDICATION / CLINICAL INFORMATION: b/l chest tubes, vent. COMPARISON: 12/09/2020 FINDINGS: SUPPORT DEVICES: Bilateral chest tubes appear in stable position. Stable satisfactory position of the right central venous catheter and endotracheal tube. Gastric tube also demonstrates stable positioni ng. HEART / MEDIASTINUM: Pneumomediastinum is not visualized on this examination. LUNGS / PLEURA: Moderate interstitial opacification throughout the lungs. No significant effusion. No discrete pneumothorax. ADDITIONAL FINDINGS: The central resolution of subcutaneous emphysema IMPRESSION: 1. Pulmonary interstitial/airspace disease which appears overall similar when compared to 12/09/2020. Signer Name: Eduardo Anderson MD Signed: 12/14/2020 9:37 AM Workstation Name: [id number]
--- NOTE | 2020-12-14 09:51 | Progress Note ---
Assessment and Plan 59 y/o male with acute respiratory failure, abnormal CXR and abnormal lab studies. 12/14/20: Unable to wean FiO2 today. Continue supportive measures. Great that his kidney function has maintained but given the amount of oxygen he continues to require, his chances of recovery continue to decrease. Family aware and will up date them as needed. Very very guarded prognosis. 12/13/20: WIll start Weaning FiO2 again tomorrow morning of PaO2 remains this good. Continue all other supportive measures. Guarded prognosis. Monitor renal function closely. 12/12/20: Long discussion with brother at door. Patient remains full code which is not unreasonable but family is realistic about outcome being poor. Will continue all supportive measures. IF clinical state worsens, will ask family to come back to see patient. Guarded Prognosis. 12/11/20: Will attempt to wean Diprovan off and increase precedex. Triglycerides were ok. IF we have to support with pressors we will but I have asked nursing to please be detailed in their checkouts as to why they did certain things with the continuous drips. Continue supportive measures. Br other is going to try to come and see him from [place] 12/10/20: No acute events overnight. Patient has had waxing and waning of the amount of oxygen he has required over the last 24-72 hours. I have a bad feeling that he is on the brink of cardiac arrest and this could happen at any moment. I am going to reach out to the brother today to explain to him my concerns. Patient is a full code. Very very guarded prognosis. 12/09/20: Repeat ABG later today. Wean FiO2 for sats >88%. Repeat CXR as well. With BP dropping could be relative adrenal insufficiency, will watch for now, however if pressor requirement increases would consider stress dose steroids and maybe volume replacement. Follow up cultures. Guarded prognosis. 12/08/20: Increase TV to 425. Drop FiO2 to 65% and wean for sats >88%. COntinue chest tubes. Change steroids to 20q12. 12/07/20: CXR is stable, no indication for another chest tube at this time. Will repeat ABG in 1 hour post change to 70% and wean accordingly. Dropping steroids to 20q8. Guarded prognosis. Same weaning parameters apply today as of 12/04/20 12/04/20: Continue to wean steroids to off. Continue to wean FiO2 for sats >88%. Keep PEEP at current level, would not feel comfortable weaning PEEP until FiO2 at 35-40%. Continue chest tubes to suction. PaO2 of >55, pH of >7.2 and sats >88% are acceptable. : Dropped steroids down to 40q8 and will start to wean from there. Continue to slowly wean FiO2 first, keep PEEP at current level. Spoke with Kehinde, please see my event note, who is the biological brother. He had no quest ions but thanked us for our care. Prognosis remains very very guarded. PaO2 of 55 and pH of >7.2 and sats of >88% are all acceptable. 12/02/20: Wean FiO2 for sats >88% and PaO2 >55. Unable to prone currently secondary to bilateral chest tubes. COntinue high dose steroids. CM To figure out who is the immediate next of kin that can make decisions and then we will discuss the current clinical situation with them. 12/01/20: Continue PEEP and FiO2 elevated to keep sats >88% and PaO2 >55. Small lung volumes and high PEEP. very very guarded prognosis. 11/30/20: Worsening hypoxemia. Chest tubes stable. Likely just worsening disease. Unable to prone now. Increase PEEP to 18 and FiO2 back up to 100. Continue 3 sedatives for RASS of -2. Obtain 12 lead to look at T waves as K was only 4.6 on yesterday. Guarded, guarded prognosis 11/29/20: Second chest tube in on yesterday. CXR is stable. ABG unchanged. Will likely increase PEEP now that chest tubes are in. No further paralytics. Still making good urine. Prognosis remains guarded. Will check chemistry to assess Potassium levels given peaked t's seen on monitor. 11/28/20: Second chest tube today. Once chest tube in, will likely increase PEEP to 18 and repeat gas about 2 hours after this. Continue paralytic today. No proning now that patient will have bilateral chest tubes. VEry guarded prognosis. 11/27/20: Spoke with surgery who have agreed to evaluate and placed chest tube on either right or left side pending CXR reading. Will monitor for 36-48 hours and if no resolution, will need chest tube placed on opposite side as well. Once placed, will likely paralyze again but hold on proning for now. Guarded prognosis. 11/26/20: Paralytics are off. Continue current level of sedation. Will prone for 12 hours today and repeat ABG in the am. Continue lung protective strategy. Guarded prognosis. 11/25/20: Prone again to 16 hours, will prone at 12-12:30. Continue paralytics for 24 more hours. Discussed the idea of permissive hypercapnea again today and as long as pH is above 7.2 no changes should be made to TV and or RR without discussing with physician. Continue to monitor urine output, guarded prognosis. Hold on lasix therapy today. 11/24/20: Prone again today. Will try 48 hours of paralyzing the patient to see if this will help with oxygenation. Will speak with RT's about permissive hypercapnea and that pH's of 7.2 and greater are ok. Continue high doses s teroids. Prognosis is still very very guarded. If not improvement with paralytics, will attempt transfer. 11/23/20: Prone again today for 12 hours. Continue High Dose steroids. Hold on lasix given marginal BP's. Prognosis is very very guarded to poor. Will continue all supportive measures. If not able to wean from 100%, will attempt transfer for ECMO. 11/20/20: WIll change to solumedrol 60q6 today. Hold on lasix today. Given his increasing oxygen requirement, will likely end up intubated. OVerall prognosis is very poor. 11/19/20: lasix 40mg IV x1 today. Will speak with ID but may consider increasing steroids to see if this will help with oxygenation. Continue Remdesivir. Prognosis remains guarded. 11/18/20: Continue bipap, goal is to attempt to prevent prolong intubation for as long as possible. Lasix again today. Steroids and Remdesivir. Guarded Prognosis. 11/17/20: Continue bipap therapy. Monitor mental state. High risk for Intubation. Continue BID anticoagulation. Prone if able. BNP was elevated but not grossly elevated. Will still give lasix with hopes of achieving net negative state. STeroids and remdesivir. Overall prognosis is guarded, extremely guarded. 1. Pulm- Agree with concern for covid. Agree with empiric abx but procal is only mildly elevated. Await cultures. Continue bipap therapy for now but will need to monitor closely. [facility] has ordered CTA, but I spoke with pharmacy and we will empirically treat with BID lovenox therapy. COntinue empiric steroid therapy for COVID until studies back. Not sure that he will be able to prone on bipap therapy. Monitor volume status and run as dry as possible. 2. Renal-normal function but all electrolytes abnormal. HYponatremia and Hypochloremia volume up vs volume down. Sent BNP. Would suggest obtaning echo as well. Not sure what to make of elevated lactate unless that is from increa sed work of breathing or damage to other tissue unknown. May need to check LFT's and Coags as well. 3. Guarded Prognosis. CCT 31 minutes. Subjective Date of service: 12/14/20 Principal diagnosis: COVID-19 Interval history: No acute events. Still on 100% and PaO2 is only in the 60's. Bilateral chest tubes present. Unable to prone. Remainder is negative. Still making good ur ine. Objective Vital Signs - 12hr 12/13/20 12/13/20 12/13/20 22:00 22:14 22:30 Temperature Pulse Rate 80 70 69 Pulse Rate [ From Monitor] Respiratory 16 20 13 Rate Blood Pressure 141/84 100/62 131/77 O2 Sat by Pulse 100 99 99 Oximetry 12/13/20 12/13/20 12/13/20 23:00 23:10 23:30 Temperature Pulse Rate 80 76 87 Pulse Rate [ From Monitor] Respiratory 21 23 Rate Blood Pressure 131/77 146/86 152/89 O2 Sat by Pulse 98 98 96 Oximetry 12/13/20 12/14/20 12/14/20 23:57 00:00 00:30 Temperature 98.6 F Pulse Rate 87 108 H Pulse Rate [ 88 From Monitor] Respiratory 14 22 Rate Blood Pressure 128/76 145/91 O2 Sat by Pulse 97 96 Oximetry 12/14/20 12/14/20 12/14/20 01:00 01:30 02:00 Temperature Pulse Rate 102 H 99 H 113 H Pulse Rate [ From Monitor] Respiratory 23 25 H 28 H Rate Blood Pressure 157/88 152/92 147/89 O2 Sat by Pulse 97 97 98 Oximetry 12/14/20 12/14/20 12/14/20 02:30 03:00 03:17 Temperature 99.1 F Pulse Rate 95 H 106 H Pulse Rate [ From Monitor] Respiratory 30 H 22 Rate Blood Pressure 138/90 133/82 O2 Sat by Pulse 99 98 Oximetry 12/14/20 12/14/20 12/14/20 03:30 03:40 04:00 Temperature Pulse Rate 99 H 98 H 95 H Pulse Rate [ 85 From Monitor] Respiratory 22 18 Rate Blood Pressure 127/72 142/90 86/54 O2 Sat by Pulse 97 97 99 Oximetry 12/14/20 12/14/20 12/14/20 04:30 05:00 05:30 Temperature Pulse Rate 84 77 70 Pulse Rate [ From Monitor] Respiratory 30 H 16 18 Rate Blood Pressure 79/45 81/48 88/54 O2 Sat by Pulse 97 99 96 Oximetry 12/14/20 12/14/20 12/14/20 06:00 06:30 07:00 Temperature Pulse Rate 63 63 64 Pulse Rate [ From Monitor] Respiratory 16 15 15 Rate Blood Pressure 103/63 109/67 111/70 O2 Sat by Pulse 98 99 99 Oximetry 12/14/20 12/14/20 07:30 08:00 Temperature 99 F Pulse Rate 68 102 H Pulse Rate [ From Monitor] Respiratory 15 16 Rate Blood Pressure 105/62 139/87 O2 Sat by Pulse 100 100 Oximetry Constitutional: other (on vent orally intubated) ENT: other (Now intubated) Ascultation: Bilateral: rales, rhonchi Percussion: Bilateral: not dull Cardiovascular: regular rate and rhythm Gastrointestinal: soft, non-tender Neurologic: other (on vent) CBC and BMP: 12/14/20 04:35 12/14/20 04:35 ABG, PT/INR, D-dimer: ABG ABG pH 7.368 (7.320-7.450) 12/14/20 04:05 POC ABG pCO2 72.2 mmHg (32.0-48.0) H 12/14/20 04:05 ABG pCO2 81.3 mm Hg 12/08/20 04:12 POC ABG pO2 61.5 mmHg (83-108) L 12/14/20 04:05 ABG pO2 69.7 mm Hg (80.0-90.0) L 12/08/20 04:12 POC ABG HCO3 40.6 12/14/20 04:05 ABG O2 Saturation 95.4 % (95.0-99.0) 12/08/20 04:12 PT/INR, D-dimer D-Dimer 926.11 ng/mlDDU (0-234) H 11/26/20 06:04 Abnormal lab findings: Abnormal Labs 11/15/20 11/15/20 11/15/20 10:39 10:39 10:39 WBC 14.3 H RBC 5.17 H Hgb Hct RDW Plt Count Lymph % (Auto) 7.8 L [place] % (Auto) 7.6 H Lymph # (Auto) 1.1 L [place] # (Auto) 1.1 H Baso # (Auto) Seg Neutrophils % 83.3 H Seg Neuts % (Manual) Lymphocytes % (Manual) Seg Neutrophils # 11.9 H Seg Neutrophils # Man Lymphocytes # (Manual) D-Dimer ABG pH POC ABG pCO2 POC ABG pO2 ABG pO2 ABG HCO3 ABG O2 Saturation ABG Base Excess ABG Hemoglobin ABG Oxyhemoglobin ABG Sodium ABG Potassium ABG Chloride ABG Glucose Oxyhemoglobin Carboxyhemoglobin Sodium 128 L Potassium Chloride 96.0 L Carbon Dioxide BUN Creatinine 0.7 L Glucose 238 H POC Glucose Hemoglobin A1c Lactic Acid 4.10 H* Calcium 7.0 L Ferritin Total Bilirubin 1.40 H AST 49 H ALT 70 H Alkaline Phosphatase Lactate Dehydrogenase 663 H C-Reactive Protein 19.80 H Total Protein Albumin 2.9 L Triglycerides Arterial Blood Glucose Arterial Blood Ionized Calcium Ur Specific [place] Vancomycin Trough Coronavirus (PCR) 11/15/20 11/15/20 11/15/20 10:39 10:39 11:20 WBC RBC Hgb Hct RDW Plt Count Lymph % (Auto) [place] % (Auto) Lymph # (Auto) [place] # (Auto) Baso # (Auto) Seg Neutrophils % Seg Neuts % (Manual) Lymphocytes % (Manual) Seg Neutrophils # Seg Neutrophils # Man Lymphocytes # (Manual) D-Dimer > 44079 H ABG pH POC ABG pCO2 29.9 L POC ABG pO2 137.3 H ABG pO2 ABG HCO3 ABG O2 Saturation ABG Base Excess ABG Hemoglobin ABG Oxyhemoglobin ABG Sodium 126.5 L ABG Potassium ABG Chloride ABG Glucose 248 H Oxyhemoglobin Carboxyhemoglobin Sodium Potassium Chloride Carbon Dioxide BUN Creatinine Glucose POC Glucose Hemoglobin A1c Lactic Acid Calcium Ferritin 672.8 H Total Bilirubin AST ALT Alkaline Phosphatase Lactate Dehydrogenase C-Reactive Protein Total Protein Albumin Triglycerides Arterial Blood Glucose 248 H Arterial Blood Ionized Calcium 4.1 L Ur Specific [place] Vancomycin Trough Coronavirus (PCR) 11/15/20 11/15/20 11/16/20 13:41 23:41 01:45 WBC RBC Hgb Hct RDW Plt Count Lymph % (Auto) [place] % (Auto) Lymph # (Auto) [place] # (Auto) Baso # (Auto) Seg Neutrophils % Seg Neuts % (Manual) Lymphocytes % (Manual) Seg Neutrophils # Seg Neutrophils # Man Lymphocytes # (Manual) D-Dimer ABG pH POC ABG pCO2 POC ABG pO2 ABG pO2 ABG HCO3 ABG O2 Saturation ABG Base Excess ABG Hemoglobin ABG Oxyhemoglobin ABG Sodium ABG Potassium ABG Chloride ABG Glucose Oxyhemoglobin Carboxyhemoglobin Sodium Potassium Chloride Carbon Dioxide BUN Creatinine Glucose POC Glucose 284 H Hemoglobin A1c Lactic Acid 2.30 H* Calcium Ferritin Total Bilirubin AST ALT Alkaline Phosphatase Lactate Dehydrogenase C-Reactive Protein Total Protein Albumin Triglycerides Arterial Blood Glucose Arterial Blood Ionized Calcium Ur Specific [place] 1.037 H Vancomycin Trough Coronavirus (PCR) 11/16/20 11/16/20 11/16/20 05:29 05:29 05:29 WBC 12.9 H RBC Hgb Hct RDW Plt Count Lymph % (Auto) 4.5 L [place] % (Auto) Lymph # (Auto) 0.6 L [place] # (Auto) Baso # (Auto) 0.2 H Seg Neutrophils % 89.8 H Seg Neuts % (Manual) Lymphocytes % (Manual) Seg Neutrophils # 11.5 H Seg Neutrophils # Man Lymphocytes # (Manual) D-Dimer ABG pH POC ABG pCO2 POC ABG pO2 ABG pO2 ABG HCO3 ABG O2 Saturation ABG Base Excess ABG Hemoglobin ABG Oxyhemoglobin ABG Sodium ABG Potassium ABG Chloride ABG Glucose Oxyhemoglobin Carboxyhemoglobin Sodium 131 L Potassium Chloride Carbon Dioxide 21 L BUN 23 H Creatinine 0.6 L Glucose 342 H POC Glucose Hemoglobin A1c Lactic Acid 2.60 H* Calcium 7.0 L Ferritin Total Bilirubin AST ALT Alkaline Phosphatase Lactate Dehydrogenase C-Reactive Protein Total Protein Albumin 2.4 L Triglycerides Arterial Blood Glucose Arterial Blood Ionized Calcium Ur Specific [place] Vancomycin Trough Coronavirus (PCR) 11/16/20 11/16/20 11/16/20 05:29 08:11 12:11 WBC RBC Hgb Hct RDW Plt Count Lymph % (Auto) [place] % (Auto) Lymph # (Auto) [place] # (Auto) Baso # (Auto) Seg Neutrophils % Seg Neuts % (Manual) Lymphocytes % (Manual) Seg Neutrophils # Seg Neutrophils # Man Lymphocytes # (Manual) D-Dimer ABG pH POC ABG pCO2 POC ABG pO2 ABG pO2 ABG HCO3 ABG O2 Saturation ABG Base Excess ABG Hemoglobin ABG Oxyhemoglobin ABG Sodium ABG Potassium ABG Chloride ABG Glucose Oxyhemoglobin Carboxyhemoglobin Sodium Potassium Chloride Carbon Dioxide BUN Creatinine Glucose POC Glucose 329 H 320 H Hemoglobin A1c 11.7 H Lactic Acid Calcium Ferritin Total Bilirubin AST ALT Alkaline Phosphatase Lactate Dehydrogenase C-Reactive Protein Total Protein Albumin Triglycerides Arterial Blood Glucose Arterial Blood Ionized Calcium Ur Specific [place] Vancomycin Trough Coronavirus (PCR) 11/16/20 11/16/20 11/16/20 16:13 21:29 Unknown WBC RBC Hgb Hct RDW Plt Count Lymph % (Auto) [place] % (Auto) Lymph # (Auto) [place] # (Auto) Baso # (Auto) Seg Neutrophils % Seg Neuts % (Manual) Lymphocytes % (Manual) Seg Neutrophils # Seg Neutrophils # Man Lymphocytes # (Manual) D-Dimer ABG pH POC ABG pCO2 POC ABG pO2 ABG pO2 ABG HCO3 ABG O2 Saturation ABG Base Excess ABG Hemoglobin ABG Oxyhemoglobin ABG Sodium ABG Potassium ABG Chloride ABG Glucose Oxyhemoglobin Carboxyhemoglobin Sodium Potassium Chloride Carbon Dioxide BUN Creatinine Glucose POC Glucose 257 H 376 H Hemoglobin A1c Lactic Acid Calcium Ferritin Total Bilirubin AST ALT Alkaline Phosphatase Lactate Dehydrogenase C-Reactive Protein Total Protein Albumin Triglycerides Arterial Blood Glucose Arterial Blood Ionized Calcium Ur Specific [place] Vancomycin Trough Coronavirus (PCR) Positive A 11/17/20 11/17/20 11/17/20 07:42 12:07 17:25 WBC RBC Hgb Hct RDW Plt Count Lymph % (Auto) [place] % (Auto) Lymph # (Auto) [place] # (Auto) Baso # (Auto) Seg Neutrophils % Seg Neuts % (Manual) Lymphocytes % (Manual) Seg Neutrophils # Seg Neutrophils # Man Lymphocytes # (Manual) D-Dimer ABG pH POC ABG pCO2 POC ABG pO2 ABG pO2 ABG HCO3 ABG O2 Saturation ABG Base Excess ABG Hemoglobin ABG Oxyhemoglobin ABG Sodium ABG Potassium ABG Chloride ABG Glucose Oxyhemoglobin Carboxyhemoglobin Sodium Potassium Chloride Carbon Dioxide BUN Creatinine Glucose POC Glucose 231 H 380 H 302 H Hemoglobin A1c Lactic Acid Calcium Ferritin Total Bilirubin AST ALT Alkaline Phosphatase Lactate Dehydrogenase C-Reactive Protein Total Protein Albumin Triglycerides Arterial Blood Glucose Arterial Blood Ionized Calcium Ur Specific [place] Vancomycin Trough Coronavirus (PCR) 11/17/20 11/18/20 11/18/20 21:53 04:25 07:45 WBC RBC Hgb Hct RDW Plt Count Lymph % (Auto) [place] % (Auto) Lymph # (Auto) [place] # (Auto) Baso # (Auto) Seg Neutrophils % Seg Neuts % (Manual) Lymphocytes % (Manual) Seg Neutrophils # Seg Neutrophils # Man Lymphocytes # (Manual) D-Dimer ABG pH POC ABG pCO2 POC ABG pO2 ABG pO2 ABG HCO3 ABG O2 Saturation ABG Base Excess ABG Hemoglobin ABG Oxyhemoglobin ABG Sodium ABG Potassium ABG Chloride ABG Glucose Oxyhemoglobin Carboxyhemoglobin Sodium 136 L Potassium Chloride Carbon Dioxide BUN 24 H Creatinine 0.6 L Glucose 212 H POC Glucose 293 H 216 H Hemoglobin A1c Lactic Acid Calcium 7.4 L Ferritin Total Bilirubin AST 41 H ALT Alkaline Phosphatase 142 H Lactate Dehydrogenase C-Reactive Protein Total Protein Albumin 2.3 L Triglycerides Arterial Blood Glucose Arterial Blood Ionized Calcium Ur Specific [place] Vancomycin Trough Coronavirus (PCR) 11/18/20 11/18/20 11/18/20 12:28 15:58 21:37 WBC RBC Hgb Hct RDW Plt Count Lymph % (Auto) [place] % (Auto) Lymph # (Auto) [place] # (Auto) Baso # (Auto) Seg Neutrophils % Seg Neuts % (Manual) Lymphocytes % (Manual) Seg Neutrophils # Seg Neutrophils # Man Lymphocytes # (Manual) D-Dimer ABG pH POC ABG pCO2 POC ABG pO2 ABG pO2 ABG HCO3 ABG O2 Saturation ABG Base Excess ABG Hemoglobin ABG Oxyhemoglobin ABG Sodium ABG Potassium ABG Chloride ABG Glucose Oxyhemoglobin Carboxyhemoglobin Sodium Potassium Chloride Carbon Dioxide BUN Creatinine Glucose POC Glucose 165 H 220 H 311 H Hemoglobin A1c Lactic Acid Calcium Ferritin Total Bilirubin AST ALT Alkaline Phosphatase Lactate Dehydrogenase C-Reactive Protein Total Protein Albumin Triglycerides Arterial Blood Glucose Arterial Blood Ionized Calcium Ur Specific [place] Vancomycin Trough Coronavirus (PCR) 11/19/20 11/19/20 11/19/20 05:35 07:40 12:39 WBC RBC Hgb Hct RDW Plt Count Lymph % (Auto) [place] % (Auto) Lymph # (Auto) [place] # (Auto) Baso # (Auto) Seg Neutrophils % Seg Neuts % (Manual) Lymphocytes % (Manual) Seg Neutrophils # Seg Neutrophils # Man Lymphocytes # (Manual) D-Dimer ABG pH POC ABG pCO2 POC ABG pO2 ABG pO2 ABG HCO3 ABG O2 Saturation ABG Base Excess ABG Hemoglobin ABG Oxyhemoglobin ABG Sodium ABG Potassium ABG Chloride ABG Glucose Oxyhemoglobin Carboxyhemoglobin Sodium 132 L Potassium Chloride Carbon Dioxide BUN 25 H Creatinine 0.5 L Glucose 179 H POC Glucose 149 H 306 H Hemoglobin A1c Lactic Acid Calcium 7.5 L Ferritin Total Bilirubin AST ALT Alkaline Phosphatase 139 H Lactate Dehydrogenase C-Reactive Protein Total Protein Albumin 2.4 L Triglycerides Arterial Blood Glucose Arterial Blood Ionized Calcium Ur Specific [place] Vancomycin Trough Coronavirus (PCR) 11/19/20 11/19/20 11/20/20 16:17 21:25 08:30 WBC RBC Hgb Hct RDW Plt Count Lymph % (Auto) [place] % (Auto) Lymph # (Auto) [place] # (Auto) Baso # (Auto) Seg Neutrophils % Seg Neuts % (Manual) Lymphocytes % (Manual) Seg Neutrophils # Seg Neutrophils # Man Lymphocytes # (Manual) D-Dimer ABG pH POC ABG pCO2 POC ABG pO2 ABG pO2 ABG HCO3 ABG O2 Saturation ABG Base Excess ABG Hemoglobin ABG Oxyhemoglobin ABG Sodium ABG Potassium ABG Chloride ABG Glucose Oxyhemoglobin Carboxyhemoglobin Sodium Potassium Chloride Carbon Dioxide BUN Creatinine Glucose POC Glucose 364 H 347 H 141 H Hemoglobin A1c Lactic Acid Calcium Ferritin Total Bilirubin AST ALT Alkaline Phosphatase Lactate Dehydrogenase C-Reactive Protein Total Protein Albumin Triglycerides Arterial Blood Glucose Arterial Blood Ionized Calcium Ur Specific [place] Vancomycin Trough Coronavirus (PCR) 11/20/20 11/20/20 11/20/20 08:50 11:32 16:19 WBC RBC Hgb Hct RDW Plt Count Lymph % (Auto) [place] % (Auto) Lymph # (Auto) [place] # (Auto) Baso # (Auto) Seg Neutrophils % Seg Neuts % (Manual) Lymphocytes % (Manual) Seg Neutrophils # Seg Neutrophils # Man Lymphocytes # (Manual) D-Dimer ABG pH POC ABG pCO2 POC ABG pO2 ABG pO2 ABG HCO3 ABG O2 Saturation ABG Base Excess ABG Hemoglobin ABG Oxyhemoglobin ABG Sodium ABG Potassium ABG Chloride ABG Glucose Oxyhemoglobin Carboxyhemoglobin Sodium 132 L Potassium Chloride 97.6 L Carbon Dioxide BUN 26 H Creatinine 0.5 L Glucose 201 H POC Glucose 296 H 327 H Hemoglobin A1c Lactic Acid Calcium 7.9 L Ferritin Total Bilirubin AST ALT Alkaline Phosphatase 137 H Lactate Dehydrogenase C-Reactive Protein Total Protein Albumin 2.6 L Triglycerides Arterial Blood Glucose Arterial Blood Ionized Calcium Ur Specific [place] Vancomycin Trough Coronavirus (PCR) 11/20/20 11/21/20 11/21/20 22:09 07:59 13:51 WBC RBC Hgb Hct RDW Plt Count Lymph % (Auto) [place] % (Auto) Lymph # (Auto) [place] # (Auto) Baso # (Auto) Seg Neutrophils % Seg Neuts % (Manual) Lymphocytes % (Manual) Seg Neutrophils # Seg Neutrophils # Man Lymphocytes # (Manual) D-Dimer ABG pH POC ABG pCO2 POC ABG pO2 ABG pO2 ABG HCO3 ABG O2 Saturation ABG Base Excess ABG Hemoglobin ABG Oxyhemoglobin ABG Sodium ABG Potassium ABG Chloride ABG Glucose Oxyhemoglobin Carboxyhemoglobin Sodium Potassium Chloride Carbon Dioxide BUN Creatinine Glucose POC Glucose 311 H 218 H 304 H Hemoglobin A1c Lactic Acid Calcium Ferritin Total Bilirubin AST ALT Alkaline Phosphatase Lactate Dehydrogenase C-Reactive Protein Total Protein Albumin Triglycerides Arterial Blood Glucose Arterial Blood Ionized Calcium Ur Specific [place] Vancomycin Trough Coronavirus (PCR) 11/21/20 11/21/20 11/21/20 16:09 21:34 23:00 WBC RBC Hgb Hct RDW Plt Count Lymph % (Auto) [place] % (Auto) Lymph # (Auto) [place] # (Auto) Baso # (Auto) Seg Neutrophils % Seg Neuts % (Manual) Lymphocytes % (Manual) Seg Neutrophils # Seg Neutrophils # Man Lymphocytes # (Manual) D-Dimer ABG pH 7.206 L POC ABG pCO2 59.3 H POC ABG pO2 76.7 L ABG pO2 ABG HCO3 ABG O2 Saturation ABG Base Excess ABG Hemoglobin ABG Oxyhemoglobin ABG Sodium 133.1 L ABG Potassium ABG Chloride ABG Glucose 320 H Oxyhemoglobin Carboxyhemoglobin Sodium Potassium Chloride Carbon Dioxide BUN Creatinine Glucose POC Glucose 239 H 279 H Hemoglobin A1c Lactic Acid Calcium Ferritin Total Bilirubin AST ALT Alkaline Phosphatase Lactate Dehydrogenase C-Reactive Protein Total Protein Albumin Triglycerides Arterial Blood Glucose 320 H Arterial Blood Ionized Calcium Ur Specific [place] Vancomycin Trough Coronavirus (PCR) 11/22/20 11/22/20 11/22/20 04:52 04:52 04:52 WBC RBC Hgb Hct RDW Plt Count Lymph % (Auto) [place] % (Auto) Lymph # (Auto) [place] # (Auto) Baso # (Auto) Seg Neutrophils % Seg Neuts % (Manual) Lymphocytes % (Manual) Seg Neutrophils # Seg Neutrophils # Man Lymphocytes # (Manual) D-Dimer 1858.36 H ABG pH POC ABG pCO2 POC ABG pO2 ABG pO2 ABG HCO3 ABG O2 Saturation ABG Base Excess ABG Hemoglobin ABG Oxyhemoglobin ABG Sodium ABG Potassium ABG Chloride ABG Glucose Oxyhemoglobin Carboxyhemoglobin Sodium Potassium Chloride Carbon Dioxide BUN Creatinine Glucose POC Glucose Hemoglobin A1c Lactic Acid Calcium Ferritin 734.2 H Total Bilirubin AST ALT Alkaline Phosphatase Lactate Dehydrogenase 404 H C-Reactive Protein 2.80 H Total Protein Albumin Triglycerides Arterial Blood Glucose Arterial Blood Ionized Calcium Ur Specific [place] Vancomycin Trough Coronavirus (PCR) 11/22/20 11/22/20 11/22/20 05:12 05:39 11:50 WBC RBC Hgb Hct RDW Plt Count Lymph % (Auto) [place] % (Auto) Lymph # (Auto) [place] # (Auto) Baso # (Auto) Seg Neutrophils % Seg Neuts % (Manual) Lymphocytes % (Manual) Seg Neutrophils # Seg Neutrophils # Man Lymphocytes # (Manual) D-Dimer ABG pH POC ABG pCO2 POC ABG pO2 51.0 L ABG pO2 ABG HCO3 ABG O2 Saturation ABG Base Excess ABG Hemoglobin ABG Oxyhemoglobin ABG Sodium 131.2 L ABG Potassium 4.6 H ABG Chloride ABG Glucose 317 H Oxyhemoglobin Carboxyhemoglobin Sodium Potassium Chloride Carbon Dioxide BUN Creatinine Glucose POC Glucose 340 H 417 H Hemoglobin A1c Lactic Acid Calcium Ferritin Total Bilirubin AST ALT Alkaline Phosphatase Lactate Dehydrogenase C-Reactive Protein Total Protein Albumin Triglycerides Arterial Blood Glucose 317 H Arterial Blood Ionized Calcium 4.4 L Ur Specific [place] Vancomycin Trough Coronavirus (PCR) 11/22/20 11/22/20 11/22/20 12:22 12:22 17:10 WBC 14.4 H RBC Hgb Hct RDW Plt Count Lymph % (Auto) [place] % (Auto) Lymph # (Auto) [place] # (Auto) Baso # (Auto) Seg Neutrophils % Seg Neuts % (Manual) 98.0 H Lymphocytes % (Manual) Seg Neutrophils # Seg Neutrophils # Man 14.1 H Lymphocytes # (Manual) 0.0 L D-Dimer ABG pH POC ABG pCO2 POC ABG pO2 ABG pO2 ABG HCO3 ABG O2 Saturation ABG Base Excess ABG Hemoglobin ABG Oxyhemoglobin ABG Sodium ABG Potassium ABG Chloride ABG Glucose Oxyhemoglobin Carboxyhemoglobin Sodium 132 L Potassium Chloride Carbon Dioxide BUN 36 H Creatinine 0.6 L Glucose 219 H POC Glucose 157 H Hemoglobin A1c Lactic Acid Calcium 7.2 L Ferritin Total Bilirubin AST ALT Alkaline Phosphatase Lactate Dehydrogenase C-Reactive Protein Total Protein Albumin Triglycerides Arterial Blood Glucose Arterial Blood Ionized Calcium Ur Specific [place] Vancomycin Trough Coronavirus (PCR) 11/22/20 11/22/20 11/22/20 18:33 21:44 23:47 WBC RBC Hgb Hct RDW Plt Count Lymph % (Auto) [place] % (Auto) Lymph # (Auto) [place] # (Auto) Baso # (Auto) Seg Neutrophils % Seg Neuts % (Manual) Lymphocytes % (Manual) Seg Neutrophils # Seg Neutrophils # Man Lymphocytes # (Manual) D-Dimer ABG pH POC ABG pCO2 POC ABG pO2 60.8 L ABG pO2 ABG HCO3 ABG O2 Saturation ABG Base Excess ABG Hemoglobin ABG Oxyhemoglobin 88.1 L ABG Sodium 135.1 L ABG Potassium ABG Chloride ABG Glucose 141 H Oxyhemoglobin Carboxyhemoglobin Sodium Potassium Chloride Carbon Dioxide BUN Creatinine Glucose POC Glucose 117 H 123 H Hemoglobin A1c Lactic Acid Calcium Ferritin Total Bilirubin AST ALT Alkaline Phosphatase Lactate Dehydrogenase C-Reactive Protein Total Protein Albumin Triglycerides Arterial Blood Glucose 141 H Arterial Blood Ionized Calcium Ur Specific [place] Vancomycin Trough Coronavirus (PCR) 11/23/20 11/23/20 11/23/20 04:00 04:00 05:23 WBC 14.4 H RBC Hgb Hct RDW Plt Count Lymph % (Auto) [place] % (Auto) Lymph # (Auto) [place] # (Auto) Baso # (Auto) Seg Neutrophils % Seg Neuts % (Manual) Lymphocytes % (Manual) Seg Neutrophils # Seg Neutrophils # Man Lymphocytes # (Manual) D-Dimer ABG pH POC ABG pCO2 POC ABG pO2 ABG pO2 ABG HCO3 ABG O2 Saturation ABG Base Excess ABG Hemoglobin ABG Oxyhemoglobin ABG Sodium ABG Potassium ABG Chloride ABG Glucose Oxyhemoglobin Carboxyhemoglobin Sodium 136 L Potassium Chloride Carbon Dioxide BUN 33 H Creatinine 0.6 L Glucose 115 H POC Glucose 173 H Hemoglobin A1c Lactic Acid Calcium 7.1 L Ferritin Total Bilirubin AST 64 H ALT 75 H Alkaline Phosphatase Lactate Dehydrogenase C-Reactive Protein Total Protein 5.9 L D Albumin 2.4 L Triglycerides Arterial Blood Glucose Arterial Blood Ionized Calcium Ur Specific [place] Vancomycin Trough Coronavirus (PCR) 11/23/20 11/23/20 11/23/20 05:40 11:27 17:10 WBC RBC Hgb Hct RDW Plt Count Lymph % (Auto) [place] % (Auto) Lymph # (Auto) [place] # (Auto) Baso # (Auto) Seg Neutrophils % Seg Neuts % (Manual) Lymphocytes % (Manual) Seg Neutrophils # Seg Neutrophils # Man Lymphocytes # (Manual) D-Dimer ABG pH POC ABG pCO2 POC ABG pO2 56.5 L ABG pO2 ABG HCO3 ABG O2 Saturation ABG Base Excess ABG Hemoglobin ABG Oxyhemoglobin ABG Sodium ABG Potassium ABG Chloride 109.0 H ABG Glucose 114 H Oxyhemoglobin Carboxyhemoglobin Sodium Potassium Chloride Carbon Dioxide BUN Creatinine Glucose POC Glucose 114 H 136 H Hemoglobin A1c Lactic Acid Calcium Ferritin Total Bilirubin AST ALT Alkaline Phosphatase Lactate Dehydrogenase C-Reactive Protein Total Protein Albumin Triglycerides Arterial Blood Glucose 114 H Arterial Blood Ionized Calcium 4.5 L Ur Specific [place] Vancomycin Trough Coronavirus (PCR) 11/24/20 11/24/20 11/24/20 05:14 05:14 05:14 WBC RBC Hgb Hct RDW Plt Count Lymph % (Auto) [place] % (Auto) Lymph # (Auto) [place] # (Auto) Baso # (Auto) Seg Neutrophils % Seg Neuts % (Manual) Lymphocytes % (Manual) Seg Neutrophils # Seg Neutrophils # Man Lymphocytes # (Manual) D-Dimer 1433.39 H ABG pH POC ABG pCO2 POC ABG pO2 ABG pO2 ABG HCO3 ABG O2 Saturation ABG Base Excess ABG Hemoglobin ABG Oxyhemoglobin ABG Sodium ABG Potassium ABG Chloride ABG Glucose Oxyhemoglobin Carboxyhemoglobin Sodium Potassium Chloride Carbon Dioxide BUN Creatinine Glucose POC Glucose Hemoglobin A1c Lactic Acid Calcium Ferritin 997.5 H Total Bilirubin AST ALT Alkaline Phosphatase Lactate Dehydrogenase 463 H C-Reactive Protein Total Protein Albumin Triglycerides Arterial Blood Glucose Arterial Blood Ionized Calcium Ur Specific [place] Vancomycin Trough Coronavirus (PCR) 11/24/20 11/24/20 11/24/20 05:31 05:36 12:05 WBC RBC Hgb Hct RDW Plt Count Lymph % (Auto) [place] % (Auto) Lymph # (Auto) [place] # (Auto) Baso # (Auto) Seg Neutrophils % Seg Neuts % (Manual) Lymphocytes % (Manual) Seg Neutrophils # Seg Neutrophils # Man Lymphocytes # (Manual) D-Dimer ABG pH POC ABG pCO2 POC ABG pO2 57.2 L ABG pO2 ABG HCO3 ABG O2 Saturation ABG Base Excess ABG Hemoglobin ABG Oxyhemoglobin ABG Sodium ABG Potassium ABG Chloride ABG Glucose 180 H Oxyhemoglobin Carboxyhemoglobin Sodium Potassium Chloride Carbon Dioxide BUN Creatinine Glucose POC Glucose 199 H 143 H Hemoglobin A1c Lactic Acid Calcium Ferritin Total Bilirubin AST ALT Alkaline Phosphatase Lactate Dehydrogenase C-Reactive Protein Total Protein Albumin Triglycerides Arterial Blood Glucose 180 H Arterial Blood Ionized Calcium 4.5 L Ur Specific [place] Vancomycin Trough Coronavirus (PCR) 11/24/20 11/24/20 11/24/20 12:14 17:47 23:47 WBC RBC Hgb Hct RDW Plt Count Lymph % (Auto) [place] % (Auto) Lymph # (Auto) [place] # (Auto) Baso # (Auto) Seg Neutrophils % Seg Neuts % (Manual) Lymphocytes % (Manual) Seg Neutrophils # Seg Neutrophils # Man Lymphocytes # (Manual) D-Dimer ABG pH 7.261 L POC ABG pCO2 59.7 H POC ABG pO2 75.7 L ABG pO2 ABG HCO3 ABG O2 Saturation ABG Base Excess ABG Hemoglobin ABG Oxyhemoglobin 92.5 L ABG Sodium ABG Potassium ABG Chloride 108.0 H ABG Glucose 150 H Oxyhemoglobin Carboxyhemoglobin Sodium Potassium Chloride Carbon Dioxide BUN Creatinine Glucose POC Glucose 223 H 179 H Hemoglobin A1c Lactic Acid Calcium Ferritin Total Bilirubin AST ALT Alkaline Phosphatase Lactate Dehydrogenase C-Reactive Protein Total Protein Albumin Triglycerides Arterial Blood Glucose 150 H Arterial Blood Ionized Calcium Ur Specific [place] Vancomycin Trough Coronavirus (PCR) 11/25/20 11/25/20 11/25/20 03:29 05:07 05:15 WBC 13.9 H RBC Hgb Hct RDW Plt Count Lymph % (Auto) [place] % (Auto) Lymph # (Auto) [place] # (Auto) Baso # (Auto) Seg Neutrophils % Seg Neuts % (Manual) 97.0 H Lymphocytes % (Manual) Seg Neutrophils # Seg Neutrophils # Man 13.5 H Lymphocytes # (Manual) 0.0 L D-Dimer ABG pH 7.272 L POC ABG pCO2 69.0 H POC ABG pO2 132.9 H ABG pO2 ABG HCO3 ABG O2 Saturation ABG Base Excess ABG Hemoglobin ABG Oxyhemoglobin ABG Sodium ABG Potassium ABG Chloride ABG Glucose 174 H Oxyhemoglobin Carboxyhemoglobin Sodium Potassium Chloride Carbon Dioxide BUN Creatinine Glucose POC Glucose 168 H Hemoglobin A1c Lactic Acid Calcium Ferritin Total Bilirubin AST ALT Alkaline Phosphatase Lactate Dehydrogenase C-Reactive Protein Total Protein Albumin Triglycerides Arterial Blood Glucose 174 H Arterial Blood Ionized Calcium Ur Specific [place] Vancomycin Trough Coronavirus (PCR) 11/25/20 11/25/20 11/25/20 05:15 11:25 17:35 WBC RBC Hgb Hct RDW Plt Count Lymph % (Auto) [place] % (Auto) Lymph # (Auto) [place] # (Auto) Baso # (Auto) Seg Neutrophils % Seg Neuts % (Manual) Lymphocytes % (Manual) Seg Neutrophils # Seg Neutrophils # Man Lymphocytes # (Manual) D-Dimer ABG pH POC ABG pCO2 POC ABG pO2 ABG pO2 ABG HCO3 ABG O2 Saturation ABG Base Excess ABG Hemoglobin ABG Oxyhemoglobin ABG Sodium ABG Potassium ABG Chloride ABG Glucose Oxyhemoglobin Carboxyhemoglobin Sodium Potassium Chloride Carbon Dioxide BUN 29 H Creatinine 0.5 L Glucose 161 H POC Glucose 224 H 228 H Hemoglobin A1c Lactic Acid Calcium 7.8 L Ferritin Total Bilirubin AST 89 H ALT 129 H Alkaline Phosphatase Lactate Dehydrogenase C-Reactive Protein Total Protein 5.8 L Albumin 2.5 L Triglycerides Arterial Blood Glucose Arterial Blood Ionized Calcium Ur Specific [place] Vancomycin Trough Coronavirus (PCR) 11/25/20 11/25/20 11/26/20 20:45 23:28 04:00 WBC RBC Hgb Hct RDW Plt Count Lymph % (Auto) [place] % (Auto) Lymph # (Auto) [place] # (Auto) Baso # (Auto) Seg Neutrophils % Seg Neuts % (Manual) Lymphocytes % (Manual) Seg Neutrophils # Seg Neutrophils # Man Lymphocytes # (Manual) D-Dimer ABG pH POC ABG pCO2 POC ABG pO2 ABG pO2 ABG HCO3 ABG O2 Saturation ABG Base Excess ABG Hemoglobin ABG Oxyhemoglobin ABG Sodium ABG Potassium ABG Chloride ABG Glucose Oxyhemoglobin Carboxyhemoglobin Sodium Potassium Chloride Carbon Dioxide BUN Creatinine Glucose POC Glucose 177 H 243 H Hemoglobin A1c Lactic Acid Calcium Ferritin 778.8 H Total Bilirubin AST ALT Alkaline Phosphatase Lactate Dehydrogenase C-Reactive Protein Total Protein Albumin Triglycerides Arterial Blood Glucose Arterial Blood Ionized Calcium Ur Specific [place] Vancomycin Trough Coronavirus (PCR) 11/26/20 11/26/20 11/26/20 04:00 05:34 06:04 WBC RBC Hgb Hct RDW Plt Count Lymph % (Auto) [place] % (Auto) Lymph # (Auto) [place] # (Auto) Baso # (Auto) Seg Neutrophils % Seg Neuts % (Manual) Lymphocytes % (Manual) Seg Neutrophils # Seg Neutrophils # Man Lymphocytes # (Manual) D-Dimer 926.11 H ABG pH POC ABG pCO2 POC ABG pO2 ABG pO2 ABG HCO3 ABG O2 Saturation ABG Base Excess ABG Hemoglobin ABG Oxyhemoglobin ABG Sodium ABG Potassium ABG Chloride ABG Glucose Oxyhemoglobin Carboxyhemoglobin Sodium Potassium Chloride Carbon Dioxide 39 H D BUN 30 H Creatinine 0.5 L Glucose 193 H POC Glucose 178 H Hemoglobin A1c Lactic Acid Calcium 7.7 L Ferritin Total Bilirubin AST 65 H ALT 132 H Alkaline Phosphatase Lactate Dehydrogenase 288 H C-Reactive Protein 1.40 H Total Protein 5.7 L Albumin 2.4 L Triglycerides Arterial Blood Glucose Arterial Blood Ionized Calcium Ur Specific [place] Vancomycin Trough Coronavirus (PCR) 11/26/20 11/26/20 11/26/20 06:04 08:47 11:20 WBC 12.4 H RBC Hgb Hct RDW Plt Count Lymph % (Auto) [place] % (Auto) Lymph # (Auto) [place] # (Auto) Baso # (Auto) Seg Neutrophils % Seg Neuts % (Manual) 98.0 H Lymphocytes % (Manual) 1.0 L Seg Neutrophils # Seg Neutrophils # Man 12.2 H Lymphocytes # (Manual) 0.1 L D-Dimer ABG pH POC ABG pCO2 75.2 H POC ABG pO2 61.9 L ABG pO2 ABG HCO3 ABG O2 Saturation ABG Base Excess ABG Hemoglobin ABG Oxyhemoglobin 90.3 L ABG Sodium ABG Potassium ABG Chloride ABG Glucose 243 H Oxyhemoglobin Carboxyhemoglobin Sodium Potassium Chloride Carbon Dioxide BUN Creatinine Glucose POC Glucose 255 H Hemoglobin A1c Lactic Acid Calcium Ferritin Total Bilirubin AST ALT Alkaline Phosphatase Lactate Dehydrogenase C-Reactive Protein Total Protein Albumin Triglycerides Arterial Blood Glucose 243 H Arterial Blood Ionized Calcium Ur Specific [place] Vancomycin Trough Coronavirus (PCR) 11/26/20 11/26/20 11/26/20 16:20 17:15 23:41 WBC RBC Hgb Hct RDW Plt Count Lymph % (Auto) [place] % (Auto) Lymph # (Auto) [place] # (Auto) Baso # (Auto) Seg Neutrophils % Seg Neuts % (Manual) Lymphocytes % (Manual) Seg Neutrophils # Seg Neutrophils # Man Lymphocytes # (Manual) D-Dimer ABG pH POC ABG pCO2 66.6 H POC ABG pO2 78.1 L ABG pO2 ABG HCO3 ABG O2 Saturation ABG Base Excess ABG Hemoglobin ABG Oxyhemoglobin ABG Sodium ABG Potassium ABG Chloride ABG Glucose 244 H Oxyhemoglobin Carboxyhemoglobin Sodium Potassium Chloride Carbon Dioxide BUN Creatinine Glucose POC Glucose 219 H 210 H Hemoglobin A1c Lactic Acid Calcium Ferritin Total Bilirubin AST ALT Alkaline Phosphatase Lactate Dehydrogenase C-Reactive Protein Total Protein Albumin Triglycerides Arterial Blood Glucose 244 H Arterial Blood Ionized Calcium Ur Specific [place] Vancomycin Trough Coronavirus (PCR) 11/27/20 11/27/20 11/27/20 04:46 05:38 06:25 WBC 13.8 H RBC Hgb Hct RDW Plt Count Lymph % (Auto) 2.0 L [place] % (Auto) Lymph # (Auto) 0.3 L [place] # (Auto) Baso # (Auto) Seg Neutrophils % Seg Neuts % (Manual) 96.0 H Lymphocytes % (Manual) Seg Neutrophils # 12.7 H Seg Neutrophils # Man 13.2 H Lymphocytes # (Manual) 0.0 L D-Dimer ABG pH POC ABG pCO2 63.0 H POC ABG pO2 53.6 L ABG pO2 ABG HCO3 ABG O2 Saturation ABG Base Excess ABG Hemoglobin ABG Oxyhemoglobin 87.8 L ABG Sodium 115.4 L ABG Potassium ABG Chloride ABG Glucose 219 H Oxyhemoglobin Carboxyhemoglobin Sodium Potassium Chloride Carbon Dioxide BUN Creatinine Glucose POC Glucose 227 H Hemoglobin A1c Lactic Acid Calcium Ferritin Total Bilirubin AST ALT Alkaline Phosphatase Lactate Dehydrogenase C-Reactive Protein Total Protein Albumin Triglycerides Arterial Blood Glucose 219 H Arterial Blood Ionized Calcium Ur Specific [place] Vancomycin Trough Coronavirus (PCR) 11/27/20 11/27/20 11/27/20 06:25 18:05 23:29 WBC RBC Hgb Hct RDW Plt Count Lymph % (Auto) [place] % (Auto) Lymph # (Auto) [place] # (Auto) Baso # (Auto) Seg Neutrophils % Seg Neuts % (Manual) Lymphocytes % (Manual) Seg Neutrophils # Seg Neutrophils # Man Lymphocytes # (Manual) D-Dimer ABG pH POC ABG pCO2 POC ABG pO2 ABG pO2 ABG HCO3 ABG O2 Saturation ABG Base Excess ABG Hemoglobin ABG Oxyhemoglobin ABG Sodium ABG Potassium ABG Chloride ABG Glucose Oxyhemoglobin Carboxyhemoglobin Sodium Potassium Chloride Carbon Dioxide 38 H BUN 34 H Creatinine 0.4 L Glucose 243 H POC Glucose 329 H 227 H Hemoglobin A1c Lactic Acid Calcium 7.9 L Ferritin Total Bilirubin AST 50 H ALT 110 H Alkaline Phosphatase Lactate Dehydrogenase C-Reactive Protein Total Protein 6.1 L Albumin 2.4 L Triglycerides Arterial Blood Glucose Arterial Blood Ionized Calcium Ur Specific [place] Vancomycin Trough Coronavirus (PCR) 11/28/20 11/28/20 11/28/20 03:45 03:45 03:46 WBC 12.2 H RBC Hgb Hct RDW Plt Count Lymph % (Auto) [place] % (Auto) Lymph # (Auto) [place] # (Auto) Baso # (Auto) Seg Neutrophils % Seg Neuts % (Manual) 93.0 H Lymphocytes % (Manual) 2.0 L Seg Neutrophils # Seg Neutrophils # Man 11.3 H Lymphocytes # (Manual) 0.2 L D-Dimer ABG pH POC ABG pCO2 68.4 H POC ABG pO2 55.4 L ABG pO2 ABG HCO3 ABG O2 Saturation ABG Base Excess ABG Hemoglobin ABG Oxyhemoglobin ABG Sodium ABG Potassium ABG Chloride ABG Glucose 197 H Oxyhemoglobin Carboxyhemoglobin Sodium Potassium Chloride Carbon Dioxide 36 H BUN 37 H Creatinine 0.4 L Glucose 194 H POC Glucose Hemoglobin A1c Lactic Acid Calcium 8.1 L Ferritin Total Bilirubin AST ALT 86 H Alkaline Phosphatase Lactate Dehydrogenase C-Reactive Protein Total Protein 6.0 L Albumin 2.3 L Triglycerides Arterial Blood Glucose 197 H Arterial Blood Ionized Calcium Ur Specific [place] Vancomycin Trough Coronavirus (PCR) 11/28/20 11/28/20 11/29/20 05:24 12:21 04:41 WBC RBC Hgb Hct RDW Plt Count Lymph % (Auto) [place] % (Auto) Lymph # (Auto) [place] # (Auto) Baso # (Auto) Seg Neutrophils % Seg Neuts % (Manual) Lymphocytes % (Manual) Seg Neutrophils # Seg Neutrophils # Man Lymphocytes # (Manual) D-Dimer ABG pH POC ABG pCO2 55.1 H POC ABG pO2 53.6 L ABG pO2 ABG HCO3 ABG O2 Saturation ABG Base Excess ABG Hemoglobin ABG Oxyhemoglobin 87.1 L ABG Sodium 131.2 L ABG Potassium ABG Chloride ABG Glucose 164 H Oxyhemoglobin Carboxyhemoglobin Sodium Potassium Chloride Carbon Dioxide BUN Creatinine Glucose POC Glucose 173 H 126 H Hemoglobin A1c Lactic Acid Calcium Ferritin Total Bilirubin AST ALT Alkaline Phosphatase Lactate Dehydrogenase C-Reactive Protein Total Protein Albumin Triglycerides Arterial Blood Glucose 164 H Arterial Blood Ionized Calcium 4.4 L Ur Specific [place] Vancomycin Trough Coronavirus (PCR) 11/29/20 11/29/20 11/29/20 05:29 12:41 13:28 WBC RBC Hgb Hct RDW Plt Count Lymph % (Auto) [place] % (Auto) Lymph # (Auto) [place] # (Auto) Baso # (Auto) Seg Neutrophils % Seg Neuts % (Manual) Lymphocytes % (Manual) Seg Neutrophils # Seg Neutrophils # Man Lymphocytes # (Manual) D-Dimer ABG pH POC ABG pCO2 POC ABG pO2 ABG pO2 ABG HCO3 ABG O2 Saturation ABG Base Excess ABG Hemoglobin ABG Oxyhemoglobin ABG Sodium ABG Potassium ABG Chloride ABG Glucose Oxyhemoglobin Carboxyhemoglobin Sodium Potassium Chloride Carbon Dioxide 40 H BUN 32 H Creatinine 0.4 L Glucose 274 H POC Glucose 173 H 257 H Hemoglobin A1c Lactic Acid Calcium 7.2 L Ferritin Total Bilirubin AST 57 H ALT 102 H Alkaline Phosphatase Lactate Dehydrogenase C-Reactive Protein Total Protein 5.7 L Albumin 2.1 L Triglycerides Arterial Blood Glucose Arterial Blood Ionized Calcium Ur Specific [place] Vancomycin Trough Coronavirus (PCR) 11/29/20 11/29/20 11/29/20 15:40 17:36 21:26 WBC RBC Hgb Hct RDW Plt Count Lymph % (Auto) [place] % (Auto) Lymph # (Auto) [place] # (Auto) Baso # (Auto) Seg Neutrophils % Seg Neuts % (Manual) Lymphocytes % (Manual) Seg Neutrophils # Seg Neutrophils # Man Lymphocytes # (Manual) D-Dimer ABG pH POC ABG pCO2 POC ABG pO2 ABG pO2 ABG HCO3 ABG O2 Saturation ABG Base Excess ABG Hemoglobin ABG Oxyhemoglobin ABG Sodium ABG Potassium ABG Chloride ABG Glucose Oxyhemoglobin Carboxyhemoglobin Sodium Potassium Chloride Carbon Dioxide BUN Creatinine Glucose POC Glucose 240 H 244 H Hemoglobin A1c Lactic Acid Calcium Ferritin Total Bilirubin AST ALT Alkaline Phosphatase Lactate Dehydrogenase C-Reactive Protein Total Protein Albumin Triglycerides Arterial Blood Glucose Arterial Blood Ionized Calcium Ur Specific [place] Vancomycin Trough 4.0 L Coronavirus (PCR) 11/29/20 11/30/20 11/30/20 23:26 03:30 03:30 WBC RBC Hgb Hct RDW Plt Count Lymph % (Auto) [place] % (Auto) Lymph # (Auto) [place] # (Auto) Baso # (Auto) Seg Neutrophils % Seg Neuts % (Manual) 97.0 H Lymphocytes % (Manual) 1.0 L Seg Neutrophils # Seg Neutrophils # Man 9.9 H Lymphocytes # (Manual) 0.1 L D-Dimer ABG pH POC ABG pCO2 POC ABG pO2 ABG pO2 ABG HCO3 ABG O2 Saturation ABG Base Excess ABG Hemoglobin ABG Oxyhemoglobin ABG Sodium ABG Potassium ABG Chloride ABG Glucose Oxyhemoglobin Carboxyhemoglobin Sodium Potassium Chloride Carbon Dioxide 38 H BUN 34 H Creatinine 0.4 L Glucose 305 H POC Glucose 283 H Hemoglobin A1c Lactic Acid Calcium 7.6 L Ferritin Total Bilirubin AST ALT 89 H Alkaline Phosphatase Lactate Dehydrogenase C-Reactive Protein Total Protein 6.0 L Albumin 2.3 L Triglycerides Arterial Blood Glucose Arterial Blood Ionized Calcium Ur Specific [place] Vancomycin Trough Coronavirus (PCR) 11/30/20 11/30/20 11/30/20 03:57 05:22 12:05 WBC RBC Hgb Hct RDW Plt Count Lymph % (Auto) [place] % (Auto) Lymph # (Auto) [place] # (Auto) Baso # (Auto) Seg Neutrophils % Seg Neuts % (Manual) Lymphocytes % (Manual) Seg Neutrophils # Seg Neutrophils # Man Lymphocytes # (Manual) D-Dimer ABG pH POC ABG pCO2 60.8 H POC ABG pO2 51.1 L ABG pO2 ABG HCO3 ABG O2 Saturation ABG Base Excess ABG Hemoglobin ABG Oxyhemoglobin 84.6 L ABG Sodium ABG Potassium ABG Chloride ABG Glucose 315 H Oxyhemoglobin Carboxyhemoglobin Sodium Potassium Chloride Carbon Dioxide BUN Creatinine Glucose POC Glucose 295 H 413 H Hemoglobin A1c Lactic Acid Calcium Ferritin Total Bilirubin AST ALT Alkaline Phosphatase Lactate Dehydrogenase C-Reactive Protein Total Protein Albumin Triglycerides Arterial Blood Glucose 315 H Arterial Blood Ionized Calcium 4.5 L Ur Specific [place] Vancomycin Trough Coronavirus (PCR) 11/30/20 11/30/20 12/01/20 17:24 23:25 02:14 WBC RBC Hgb Hct RDW Plt Count Lymph % (Auto) [place] % (Auto) Lymph # (Auto) [place] # (Auto) Baso # (Auto) Seg Neutrophils % Seg Neuts % (Manual) Lymphocytes % (Manual) Seg Neutrophils # Seg Neutrophils # Man Lymphocytes # (Manual) D-Dimer ABG pH 7.278 L POC ABG pCO2 78.1 H POC ABG pO2 79.5 L ABG pO2 ABG HCO3 ABG O2 Saturation ABG Base Excess ABG Hemoglobin 11.6 L ABG Oxyhemoglobin ABG Sodium 134.5 L ABG Potassium 4.6 H ABG Chloride ABG Glucose 286 H Oxyhemoglobin Carboxyhemoglobin Sodium Potassium Chloride Carbon Dioxide BUN Creatinine Glucose POC Glucose 305 H 302 H Hemoglobin A1c Lactic Acid Calcium Ferritin Total Bilirubin AST ALT Alkaline Phosphatase Lactate Dehydrogenase C-Reactive Protein Total Protein Albumin Triglycerides Arterial Blood Glucose 286 H Arterial Blood Ionized Calcium Ur Specific [place] Vancomycin Trough Coronavirus (PCR) 12/01/20 12/01/20 12/01/20 03:35 03:35 05:22 WBC 13.4 H RBC 3.54 L Hgb 10.4 L Hct 31.8 L RDW Plt Count Lymph % (Auto) [place] % (Auto) Lymph # (Auto) [place] # (Auto) Baso # (Auto) Seg Neutrophils % Seg Neuts % (Manual) 95.0 H Lymphocytes % (Manual) 3.0 L Seg Neutrophils # Seg Neutrophils # Man 12.7 H Lymphocytes # (Manual) 0.4 L D-Dimer ABG pH POC ABG pCO2 POC ABG pO2 ABG pO2 ABG HCO3 ABG O2 Saturation ABG Base Excess ABG Hemoglobin ABG Oxyhemoglobin ABG Sodium ABG Potassium ABG Chloride ABG Glucose Oxyhemoglobin Carboxyhemoglobin Sodium Potassium Chloride Carbon Dioxide 35 H BUN 34 H Creatinine 0.5 L Glucose 279 H POC Glucose 259 H Hemoglobin A1c Lactic Acid Calcium 7.6 L Ferritin Total Bilirubin AST ALT 63 H Alkaline Phosphatase Lactate Dehydrogenase C-Reactive Protein Total Protein 4.8 L Albumin 2.1 L Triglycerides Arterial Blood Glucose Arterial Blood Ionized Calcium Ur Specific [place] Vancomycin Trough Coronavirus (PCR) 12/01/20 12/01/20 12/01/20 12:05 17:40 23:46 WBC RBC Hgb Hct RDW Plt Count Lymph % (Auto) [place] % (Auto) Lymph # (Auto) [place] # (Auto) Baso # (Auto) Seg Neutrophils % Seg Neuts % (Manual) Lymphocytes % (Manual) Seg Neutrophils # Seg Neutrophils # Man Lymphocytes # (Manual) D-Dimer ABG pH POC ABG pCO2 POC ABG pO2 ABG pO2 ABG HCO3 ABG O2 Saturation ABG Base Excess ABG Hemoglobin ABG Oxyhemoglobin ABG Sodium ABG Potassium ABG Chloride ABG Glucose Oxyhemoglobin Carboxyhemoglobin Sodium Potassium Chloride Carbon Dioxide BUN Creatinine Glucose POC Glucose 197 H 244 H 284 H Hemoglobin A1c Lactic Acid Calcium Ferritin Total Bilirubin AST ALT Alkaline Phosphatase Lactate Dehydrogenase C-Reactive Protein Total Protein Albumin Triglycerides Arterial Blood Glucose Arterial Blood Ionized Calcium Ur Specific [place] Vancomycin Trough Coronavirus (PCR) 12/02/20 12/02/20 12/02/20 02:14 03:03 04:11 WBC 16.5 H RBC 3.55 L Hgb 10.5 L Hct 31.9 L RDW Plt Count Lymph % (Auto) [place] % (Auto) Lymph # (Auto) [place] # (Auto) Baso # (Auto) Seg Neutrophils % Seg Neuts % (Manual) 90.0 H Lymphocytes % (Manual) 3.0 L Seg Neutrophils # Seg Neutrophils # Man 14.9 H Lymphocytes # (Manual) 0.5 L D-Dimer ABG pH POC ABG pCO2 74.8 H POC ABG pO2 58.9 L ABG pO2 ABG HCO3 ABG O2 Saturation ABG Base Excess ABG Hemoglobin 11.5 L ABG Oxyhemoglobin ABG Sodium ABG Potassium ABG Chloride ABG Glucose 264 H Oxyhemoglobin Carboxyhemoglobin Sodium Potassium Chloride Carbon Dioxide 37 H BUN 30 H Creatinine 0.4 L Glucose 245 H POC Glucose Hemoglobin A1c Lactic Acid Calcium 7.5 L Ferritin Total Bilirubin AST ALT Alkaline Phosphatase Lactate Dehydrogenase C-Reactive Protein Total Protein 5.2 L Albumin 2.2 L Triglycerides Arterial Blood Glucose 264 H Arterial Blood Ionized Calcium 4.5 L Ur Specific [place] Vancomycin Trough Coronavirus (PCR) 12/02/20 12/02/20 12/02/20 05:19 11:46 17:52 WBC RBC Hgb Hct RDW Plt Count Lymph % (Auto) [place] % (Auto) Lymph # (Auto) [place] # (Auto) Baso # (Auto) Seg Neutrophils % Seg Neuts % (Manual) Lymphocytes % (Manual) Seg Neutrophils # Seg Neutrophils # Man Lymphocytes # (Manual) D-Dimer ABG pH POC ABG pCO2 POC ABG pO2 ABG pO2 ABG HCO3 ABG O2 Saturation ABG Base Excess ABG Hemoglobin ABG Oxyhemoglobin ABG Sodium ABG Potassium ABG Chloride ABG Glucose Oxyhemoglobin Carboxyhemoglobin Sodium Potassium Chloride Carbon Dioxide BUN Creatinine Glucose POC Glucose 238 H 236 H 233 H Hemoglobin A1c Lactic Acid Calcium Ferritin Total Bilirubin AST ALT Alkaline Phosphatase Lactate Dehydrogenase C-Reactive Protein Total Protein Albumin Triglycerides Arterial Blood Glucose Arterial Blood Ionized Calcium Ur Specific [place] Vancomycin Trough Coronavirus (PCR) 12/02/20 12/03/20 12/03/20 23:23 03:21 04:35 WBC RBC Hgb Hct RDW Plt Count 112 L Lymph % (Auto) [place] % (Auto) Lymph # (Auto) [place] # (Auto) Baso # (Auto) Seg Neutrophils % Seg Neuts % (Manual) 93.0 H Lymphocytes % (Manual) 4.0 L Seg Neutrophils # Seg Neutrophils # Man 9.1 H Lymphocytes # (Manual) 0.4 L D-Dimer ABG pH 7.299 L POC ABG pCO2 82.1 H POC ABG pO2 62.4 L ABG pO2 ABG HCO3 ABG O2 Saturation ABG Base Excess ABG Hemoglobin 11.5 L ABG Oxyhemoglobin 89.6 L ABG Sodium 134.3 L ABG Potassium ABG Chloride 95.0 L ABG Glucose 203 H Oxyhemoglobin Carboxyhemoglobin Sodium Potassium Chloride Carbon Dioxide BUN Creatinine Glucose POC Glucose 213 H Hemoglobin A1c Lactic Acid Calcium Ferritin Total Bilirubin AST ALT Alkaline Phosphatase Lactate Dehydrogenase C-Reactive Protein Total Protein Albumin Triglycerides Arterial Blood Glucose 203 H Arterial Blood Ionized Calcium 4.5 L Ur Specific [place] Vancomycin Trough Coronavirus (PCR) 12/03/20 12/03/20 12/03/20 04:35 05:42 11:28 WBC RBC Hgb Hct RDW Plt Count Lymph % (Auto) [place] % (Auto) Lymph # (Auto) [place] # (Auto) Baso # (Auto) Seg Neutrophils % Seg Neuts % (Manual) Lymphocytes % (Manual) Seg Neutrophils # Seg Neutrophils # Man Lymphocytes # (Manual) D-Dimer ABG pH POC ABG pCO2 POC ABG pO2 ABG pO2 ABG HCO3 ABG O2 Saturation ABG Base Excess ABG Hemoglobin ABG Oxyhemoglobin ABG Sodium ABG Potassium ABG Chloride ABG Glucose Oxyhemoglobin Carboxyhemoglobin Sodium Potassium Chloride 97.8 L Carbon Dioxide 43 H* BUN 25 H Creatinine 0.3 L Glucose 214 H POC Glucose 193 H 211 H Hemoglobin A1c Lactic Acid Calcium 7.7 L Ferritin Total Bilirubin AST ALT 63 H Alkaline Phosphatase 132 H Lactate Dehydrogenase C-Reactive Protein Total Protein 5.1 L Albumin 2.4 L Triglycerides Arterial Blood Glucose Arterial Blood Ionized Calcium Ur Specific [place] Vancomycin Trough Coronavirus (PCR) 12/03/20 12/03/20 12/04/20 17:45 23:57 00:11 WBC RBC Hgb Hct RDW Plt Count Lymph % (Auto) [place] % (Auto) Lymph # (Auto) [place] # (Auto) Baso # (Auto) Seg Neutrophils % Seg Neuts % (Manual) Lymphocytes % (Manual) Seg Neutrophils # Seg Neutrophils # Man Lymphocytes # (Manual) D-Dimer ABG pH POC ABG pCO2 POC ABG pO2 ABG pO2 ABG HCO3 ABG O2 Saturation ABG Base Excess ABG Hemoglobin ABG Oxyhemoglobin ABG Sodium ABG Potassium ABG Chloride ABG Glucose Oxyhemoglobin Carboxyhemoglobin Sodium Potassium Chloride Carbon Dioxide BUN Creatinine Glucose POC Glucose 231 H 240 H 239 H Hemoglobin A1c Lactic Acid Calcium Ferritin Total Bilirubin AST ALT Alkaline Phosphatase Lactate Dehydrogenase C-Reactive Protein Total Protein Albumin Triglycerides Arterial Blood Glucose Arterial Blood Ionized Calcium Ur Specific [place] Vancomycin Trough Coronavirus (PCR) 12/04/20 12/04/20 12/04/20 04:00 05:20 05:34 WBC RBC Hgb Hct RDW Plt Count Lymph % (Auto) [place] % (Auto) Lymph # (Auto) [place] # (Auto) Baso # (Auto) Seg Neutrophils % Seg Neuts % (Manual) Lymphocytes % (Manual) Seg Neutrophils # Seg Neutrophils # Man Lymphocytes # (Manual) D-Dimer ABG pH POC ABG pCO2 84.4 H POC ABG pO2 68.0 L ABG pO2 ABG HCO3 ABG O2 Saturation ABG Base Excess ABG Hemoglobin 11.6 L ABG Oxyhemoglobin ABG Sodium 130.9 L ABG Potassium ABG Chloride 90.0 L ABG Glucose 244 H Oxyhemoglobin Carboxyhemoglobin Sodium Potassium Chloride Carbon Dioxide BUN Creatinine Glucose POC Glucose 241 H 213 H Hemoglobin A1c Lactic Acid Calcium Ferritin Total Bilirubin AST ALT Alkaline Phosphatase Lactate Dehydrogenase C-Reactive Protein Total Protein Albumin Triglycerides Arterial Blood Glucose 244 H Arterial Blood Ionized Calcium 4.4 L Ur Specific [place] Vancomycin Trough Coronavirus (PCR) 12/04/20 12/04/20 12/04/20 11:36 16:53 23:32 WBC RBC Hgb Hct RDW Plt Count Lymph % (Auto) [place] % (Auto) Lymph # (Auto) [place] # (Auto) Baso # (Auto) Seg Neutrophils % Seg Neuts % (Manual) Lymphocytes % (Manual) Seg Neutrophils # Seg Neutrophils # Man Lymphocytes # (Manual) D-Dimer ABG pH POC ABG pCO2 POC ABG pO2 ABG pO2 ABG HCO3 ABG O2 Saturation ABG Base Excess ABG Hemoglobin ABG Oxyhemoglobin ABG Sodium ABG Potassium ABG Chloride ABG Glucose Oxyhemoglobin Carboxyhemoglobin Sodium Potassium Chloride Carbon Dioxide BUN Creatinine Glucose POC Glucose 196 H 127 H 230 H Hemoglobin A1c Lactic Acid Calcium Ferritin Total Bilirubin AST ALT Alkaline Phosphatase Lactate Dehydrogenase C-Reactive Protein Total Protein Albumin Triglycerides Arterial Blood Glucose Arterial Blood Ionized Calcium Ur Specific [place] Vancomycin Trough Coronavirus (PCR) 12/04/20 12/05/20 12/05/20 Unknown 04:16 05:21 WBC RBC Hgb Hct RDW Plt Count Lymph % (Auto) [place] % (Auto) Lymph # (Auto) [place] # (Auto) Baso # (Auto) Seg Neutrophils % Seg Neuts % (Manual) Lymphocytes % (Manual) Seg Neutrophils # Seg Neutrophils # Man Lymphocytes # (Manual) D-Dimer ABG pH POC ABG pCO2 86.7 H POC ABG pO2 58.0 L ABG pO2 ABG HCO3 ABG O2 Saturation ABG Base Excess ABG Hemoglobin 11.6 L ABG Oxyhemoglobin 89 L ABG Sodium 130.1 L ABG Potassium 4.9 H ABG Chloride 89.0 L ABG Glucose 254 H Oxyhemoglobin Carboxyhemoglobin Sodium 136 L Potassium Chloride 90.0 L Carbon Dioxide 46 H* BUN 24 H Creatinine 0.3 L Glucose 226 H POC Glucose 213 H Hemoglobin A1c Lactic Acid Calcium 7.6 L Ferritin Total Bilirubin AST 46 H ALT 78 H Alkaline Phosphatase 172 H Lactate Dehydrogenase C-Reactive Protein Total Protein 6.0 L Albumin 2.8 L Triglycerides 156 H Arterial Blood Glucose 254 H Arterial Blood Ionized Calcium 4.4 L Ur Specific [place] Vancomycin Trough Coronavirus (PCR) 12/05/20 12/05/20 12/05/20 11:22 17:26 23:38 WBC RBC Hgb Hct RDW Plt Count Lymph % (Auto) [place] % (Auto) Lymph # (Auto) [place] # (Auto) Baso # (Auto) Seg Neutrophils % Seg Neuts % (Manual) Lymphocytes % (Manual) Seg Neutrophils # Seg Neutrophils # Man Lymphocytes # (Manual) D-Dimer ABG pH POC ABG pCO2 POC ABG pO2 ABG pO2 ABG HCO3 ABG O2 Saturation ABG Base Excess ABG Hemoglobin ABG Oxyhemoglobin ABG Sodium ABG Potassium ABG Chloride ABG Glucose Oxyhemoglobin Carboxyhemoglobin Sodium Potassium Chloride Carbon Dioxide BUN Creatinine Glucose POC Glucose 212 H 157 H 204 H Hemoglobin A1c Lactic Acid Calcium Ferritin Total Bilirubin AST ALT Alkaline Phosphatase Lactate Dehydrogenase C-Reactive Protein Total Protein Albumin Triglycerides Arterial Blood Glucose Arterial Blood Ionized Calcium Ur Specific [place] Vancomycin Trough Coronavirus (PCR) 12/06/20 12/06/20 12/06/20 04:31 04:31 05:12 WBC 17.0 H RBC 3.63 L Hgb 10.8 L D Hct 32.6 L D RDW Plt Count Lymph % (Auto) [place] % (Auto) Lymph # (Auto) [place] # (Auto) Baso # (Auto) Seg Neutrophils % Seg Neuts % (Manual) Lymphocytes % (Manual) Seg Neutrophils # Seg Neutrophils # Man Lymphocytes # (Manual) D-Dimer ABG pH POC ABG pCO2 85.9 H POC ABG pO2 57.6 L ABG pO2 ABG HCO3 ABG O2 Saturation ABG Base Excess ABG Hemoglobin ABG Oxyhemoglobin ABG Sodium 131.2 L ABG Potassium 4.8 H ABG Chloride 86.0 L ABG Glucose 200 H Oxyhemoglobin Carboxyhemoglobin Sodium 134 L Potassium 5.1 H Chloride 88.4 L Carbon Dioxide 47 H* BUN 23 H Creatinine 0.3 L Glucose 206 H POC Glucose Hemoglobin A1c Lactic Acid Calcium 8.3 L Ferritin Total Bilirubin AST 48 H ALT 91 H Alkaline Phosphatase 140 H Lactate Dehydrogenase C-Reactive Protein Total Protein 5.7 L Albumin 2.6 L Triglycerides Arterial Blood Glucose 200 H Arterial Blood Ionized Calcium 4.4 L Ur Specific [place] Vancomycin Trough Coronavirus (PCR) 12/06/20 12/06/20 12/06/20 05:24 12:18 16:45 WBC RBC Hgb Hct RDW Plt Count Lymph % (Auto) [place] % (Auto) Lymph # (Auto) [place] # (Auto) Baso # (Auto) Seg Neutrophils % Seg Neuts % (Manual) Lymphocytes % (Manual) Seg Neutrophils # Seg Neutrophils # Man Lymphocytes # (Manual) D-Dimer ABG pH POC ABG pCO2 POC ABG pO2 ABG pO2 ABG HCO3 ABG O2 Saturation ABG Base Excess ABG Hemoglobin ABG Oxyhemoglobin ABG Sodium ABG Potassium ABG Chloride ABG Glucose Oxyhemoglobin Carboxyhemoglobin Sodium Potassium Chloride Carbon Dioxide BUN Creatinine Glucose POC Glucose 186 H 187 H 150 H Hemoglobin A1c Lactic Acid Calcium Ferritin Total Bilirubin AST ALT Alkaline Phosphatase Lactate Dehydrogenase C-Reactive Protein Total Protein Albumin Triglycerides Arterial Blood Glucose Arterial Blood Ionized Calcium Ur Specific [place] Vancomycin Trough Coronavirus (PCR) 12/06/20 12/07/20 12/07/20 23:43 05:20 05:21 WBC RBC Hgb Hct RDW Plt Count Lymph % (Auto) [place] % (Auto) Lymph # (Auto) [place] # (Auto) Baso # (Auto) Seg Neutrophils % Seg Neuts % (Manual) Lymphocytes % (Manual) Seg Neutrophils # Seg Neutrophils # Man Lymphocytes # (Manual) D-Dimer ABG pH POC ABG pCO2 POC ABG pO2 ABG pO2 48.4 L ABG HCO3 50.8 H ABG O2 Saturation 86.2 L ABG Base Excess 22.4 H ABG Hemoglobin 11.0 L ABG Oxyhemoglobin ABG Sodium ABG Potassium ABG Chloride ABG Glucose Oxyhemoglobin 84.0 L Carboxyhemoglobin Sodium Potassium Chloride Carbon Dioxide BUN Creatinine Glucose POC Glucose 153 H 107 H Hemoglobin A1c Lactic Acid Calcium Ferritin Total Bilirubin AST ALT Alkaline Phosphatase Lactate Dehydrogenase C-Reactive Protein Total Protein Albumin Triglycerides Arterial Blood Glucose Arterial Blood Ionized Calcium Ur Specific [place] Vancomycin Trough Coronavirus (PCR) 12/07/20 12/07/20 12/07/20 13:20 14:28 17:35 WBC RBC Hgb Hct RDW Plt Count Lymph % (Auto) [place] % (Auto) Lymph # (Auto) [place] # (Auto) Baso # (Auto) Seg Neutrophils % Seg Neuts % (Manual) Lymphocytes % (Manual) Seg Neutrophils # Seg Neutrophils # Man Lymphocytes # (Manual) D-Dimer ABG pH POC ABG pCO2 74.1 H POC ABG pO2 68.5 L ABG pO2 ABG HCO3 ABG O2 Saturation ABG Base Excess ABG Hemoglobin 10.7 L ABG Oxyhemoglobin 91.9 L ABG Sodium 132.2 L ABG Potassium 4.7 H ABG Chloride 88.0 L ABG Glucose 138 H Oxyhemoglobin Carboxyhemoglobin Sodium 134 L Potassium Chloride 87.4 L Carbon Dioxide 49 H* BUN Creatinine 0.2 L Glucose 132 H POC Glucose 176 H Hemoglobin A1c Lactic Acid Calcium 7.7 L Ferritin Total Bilirubin AST ALT Alkaline Phosphatase Lactate Dehydrogenase C-Reactive Protein Total Protein Albumin Triglycerides Arterial Blood Glucose 138 H Arterial Blood Ionized Calcium 4.0 L Ur Specific [place] Vancomycin Trough Coronavirus (PCR) 12/07/20 12/08/20 12/08/20 23:44 04:12 05:29 WBC RBC Hgb Hct RDW Plt Count Lymph % (Auto) [place] % (Auto) Lymph # (Auto) [place] # (Auto) Baso # (Auto) Seg Neutrophils % Seg Neuts % (Manual) Lymphocytes % (Manual) Seg Neutrophils # Seg Neutrophils # Man Lymphocytes # (Manual) D-Dimer ABG pH POC ABG pCO2 POC ABG pO2 ABG pO2 69.7 L ABG HCO3 50.1 H ABG O2 Saturation ABG Base Excess 21.6 H ABG Hemoglobin 10.9 L ABG Oxyhemoglobin ABG Sodium ABG Potassium ABG Chloride ABG Glucose Oxyhemoglobin 93.2 L Carboxyhemoglobin Sodium Potassium Chloride Carbon Dioxide BUN Creatinine Glucose POC Glucose 143 H 143 H Hemoglobin A1c Lactic Acid Calcium Ferritin Total Bilirubin AST ALT Alkaline Phosphatase Lactate Dehydrogenase C-Reactive Protein Total Protein Albumin Triglycerides Arterial Blood Glucose Arterial Blood Ionized Calcium Ur Specific [place] Vancomycin Trough Coronavirus (PCR) 12/08/20 12/08/20 12/09/20 06:10 06:10 04:24 WBC 12.0 H RBC 3.18 L Hgb 9.5 L Hct 28.9 L RDW Plt Count Lymph % (Auto) [place] % (Auto) Lymph # (Auto) [place] # (Auto) Baso # (Auto) Seg Neutrophils % Seg Neuts % (Manual) 95.0 H Lymphocytes % (Manual) 3.0 L Seg Neutrophils # Seg Neutrophils # Man 11.4 H Lymphocytes # (Manual) 0.4 L D-Dimer ABG pH POC ABG pCO2 76.2 H POC ABG pO2 52.8 L ABG pO2 ABG HCO3 ABG O2 Saturation ABG Base Excess ABG Hemoglobin 11.7 L ABG Oxyhemoglobin ABG Sodium 132.0 L ABG Potassium ABG Chloride 87.0 L ABG Glucose 118 H Oxyhemoglobin Carboxyhemoglobin Sodium 133 L Potassium Chloride 86.3 L Carbon Dioxide 53 H* BUN Creatinine 0.2 L Glucose 156 H POC Glucose Hemoglobin A1c Lactic Acid Calcium 7.6 L Ferritin Total Bilirubin AST ALT Alkaline Phosphatase Lactate Dehydrogenase C-Reactive Protein Total Protein Albumin Triglycerides Arterial Blood Glucose 118 H Arterial Blood Ionized Calcium 4.2 L Ur Specific [place] Vancomycin Trough Coronavirus (PCR) 12/09/20 12/09/20 12/09/20 05:44 06:40 06:40 WBC 13.5 H RBC 3.28 L Hgb 9.7 L Hct 29.9 L RDW Plt Count Lymph % (Auto) [place] % (Auto) Lymph # (Auto) [place] # (Auto) Baso # (Auto) Seg Neutrophils % Seg Neuts % (Manual) Lymphocytes % (Manual) Seg Neutrophils # Seg Neutrophils # Man Lymphocytes # (Manual) D-Dimer ABG pH POC ABG pCO2 POC ABG pO2 ABG pO2 ABG HCO3 ABG O2 Saturation ABG Base Excess ABG Hemoglobin ABG Oxyhemoglobin ABG Sodium ABG Potassium ABG Chloride ABG Glucose Oxyhemoglobin Carboxyhemoglobin Sodium 135 L Potassium Chloride 89.5 L Carbon Dioxide 52 H* BUN Creatinine 0.3 L Glucose 114 H POC Glucose 117 H Hemoglobin A1c Lactic Acid Calcium 7.6 L Ferritin Total Bilirubin AST ALT Alkaline Phosphatase Lactate Dehydrogenase C-Reactive Protein Total Protein Albumin Triglycerides Arterial Blood Glucose Arterial Blood Ionized Calcium Ur Specific [place] Vancomycin Trough Coronavirus (PCR) 12/09/20 12/09/20 12/10/20 16:42 21:11 04:28 WBC RBC Hgb Hct RDW Plt Count Lymph % (Auto) [place] % (Auto) Lymph # (Auto) [place] # (Auto) Baso # (Auto) Seg Neutrophils % Seg Neuts % (Manual) Lymphocytes % (Manual) Seg Neutrophils # Seg Neutrophils # Man Lymphocytes # (Manual) D-Dimer ABG pH POC ABG pCO2 72.5 H 69.4 H 76.9 H POC ABG pO2 50.4 L 80.6 L 60.2 L ABG pO2 ABG HCO3 ABG O2 Saturation ABG Base Excess ABG Hemoglobin 10.4 L 10.7 L 10 L ABG Oxyhemoglobin 84.3 L 89.7 L ABG Sodium 133.7 L 133.7 L 133.8 L ABG Potassium ABG Chloride 90.0 L 91.0 L 91.0 L ABG Glucose 116 H 96 H 57 L Oxyhemoglobin Carboxyhemoglobin 0.4 L Sodium Potassium Chloride Carbon Dioxide BUN Creatinine Glucose POC Glucose Hemoglobin A1c Lactic Acid Calcium Ferritin Total Bilirubin AST ALT Alkaline Phosphatase Lactate Dehydrogenase C-Reactive Protein Total Protein Albumin Triglycerides Arterial Blood Glucose 116 H 96 H 57 L Arterial Blood Ionized Calcium 4.2 L 4.3 L 4.2 L Ur Specific [place] Vancomycin Trough Coronavirus (PCR) 12/10/20 12/10/20 12/10/20 05:09 05:41 11:50 WBC RBC Hgb Hct RDW Plt Count Lymph % (Auto) [place] % (Auto) Lymph # (Auto) [place] # (Auto) Baso # (Auto) Seg Neutrophils % Seg Neuts % (Manual) Lymphocytes % (Manual) Seg Neutrophils # Seg Neutrophils # Man Lymphocytes # (Manual) D-Dimer ABG pH POC ABG pCO2 POC ABG pO2 ABG pO2 ABG HCO3 ABG O2 Saturation ABG Base Excess ABG Hemoglobin ABG Oxyhemoglobin ABG Sodium ABG Potassium ABG Chloride ABG Glucose Oxyhemoglobin Carboxyhemoglobin Sodium Potassium Chloride Carbon Dioxide BUN Creatinine Glucose POC Glucose 41 L 138 H 106 H Hemoglobin A1c Lactic Acid Calcium Ferritin Total Bilirubin AST ALT Alkaline Phosphatase Lactate Dehydrogenase C-Reactive Protein Total Protein Albumin Triglycerides Arterial Blood Glucose Arterial Blood Ionized Calcium Ur Specific [place] Vancomycin Trough Coronavirus (PCR) 12/10/20 12/10/20 12/11/20 17:34 23:25 04:06 WBC RBC Hgb Hct RDW Plt Count Lymph % (Auto) [place] % (Auto) Lymph # (Auto) [place] # (Auto) Baso # (Auto) Seg Neutrophils % Seg Neuts % (Manual) Lymphocytes % (Manual) Seg Neutrophils # Seg Neutrophils # Man Lymphocytes # (Manual) D-Dimer ABG pH POC ABG pCO2 71.0 H POC ABG pO2 56.8 L ABG pO2 ABG HCO3 ABG O2 Saturation ABG Base Excess ABG Hemoglobin 10.1 L ABG Oxyhemoglobin 88.5 L ABG Sodium 132.3 L ABG Potassium ABG Chloride 91.0 L ABG Glucose 168 H Oxyhemoglobin Carboxyhemoglobin Sodium Potassium Chloride Carbon Dioxide BUN Creatinine Glucose POC Glucose 121 H 167 H Hemoglobin A1c Lactic Acid Calcium Ferritin Total Bilirubin AST ALT Alkaline Phosphatase Lactate Dehydrogenase C-Reactive Protein Total Protein Albumin Triglycerides Arterial Blood Glucose 168 H Arterial Blood Ionized Calcium 4.1 L Ur Specific [place] Vancomycin Trough Coronavirus (PCR) 12/11/20 12/11/20 12/11/20 05:21 11:44 15:40 WBC RBC Hgb Hct RDW Plt Count Lymph % (Auto) [place] % (Auto) Lymph # (Auto) [place] # (Auto) Baso # (Auto) Seg Neutrophils % Seg Neuts % (Manual) Lymphocytes % (Manual) Seg Neutrophils # Seg Neutrophils # Man Lymphocytes # (Manual) D-Dimer ABG pH 7.454 H POC ABG pCO2 58.6 H POC ABG pO2 50.7 L ABG pO2 ABG HCO3 ABG O2 Saturation ABG Base Excess ABG Hemoglobin 10.1 L ABG Oxyhemoglobin 86.2 L ABG Sodium 131.2 L ABG Potassium ABG Chloride 92.0 L ABG Glucose 197 H Oxyhemoglobin Carboxyhemoglobin Sodium Potassium Chloride Carbon Dioxide BUN Creatinine Glucose POC Glucose 149 H 202 H Hemoglobin A1c Lactic Acid Calcium Ferritin Total Bilirubin AST ALT Alkaline Phosphatase Lactate Dehydrogenase C-Reactive Protein Total Protein Albumin Triglycerides Arterial Blood Glucose 197 H Arterial Blood Ionized Calcium 4.2 L Ur Specific [place] Vancomycin Trough Coronavirus (PCR) 12/11/20 12/11/20 12/12/20 17:09 23:16 05:09 WBC RBC Hgb Hct RDW Plt Count Lymph % (Auto) [place] % (Auto) Lymph # (Auto) [place] # (Auto) Baso # (Auto) Seg Neutrophils % Seg Neuts % (Manual) Lymphocytes % (Manual) Seg Neutrophils # Seg Neutrophils # Man Lymphocytes # (Manual) D-Dimer ABG pH POC ABG pCO2 63.1 H POC ABG pO2 62.6 L ABG pO2 ABG HCO3 ABG O2 Saturation ABG Base Excess ABG Hemoglobin 10.3 L ABG Oxyhemoglobin ABG Sodium 130.3 L ABG Potassium 4.6 H ABG Chloride 92.0 L ABG Glucose 215 H Oxyhemoglobin Carboxyhemoglobin Sodium Potassium Chloride Carbon Dioxide BUN Creatinine Glucose POC Glucose 181 H 192 H Hemoglobin A1c Lactic Acid Calcium Ferritin Total Bilirubin AST ALT Alkaline Phosphatase Lactate Dehydrogenase C-Reactive Protein Total Protein Albumin Triglycerides Arterial Blood Glucose 215 H Arterial Blood Ionized Calcium 4.4 L Ur Specific [place] Vancomycin Trough Coronavirus (PCR) 12/12/20 12/12/20 12/12/20 05:16 05:47 11:41 WBC RBC Hgb Hct RDW Plt Count Lymph % (Auto) [place] % (Auto) Lymph # (Auto) [place] # (Auto) Baso # (Auto) Seg Neutrophils % Seg Neuts % (Manual) Lymphocytes % (Manual) Seg Neutrophils # Seg Neutrophils # Man Lymphocytes # (Manual) D-Dimer ABG pH POC ABG pCO2 POC ABG pO2 ABG pO2 ABG HCO3 ABG O2 Saturation ABG Base Excess ABG Hemoglobin ABG Oxyhemoglobin ABG Sodium ABG Potassium ABG Chloride ABG Glucose Oxyhemoglobin Carboxyhemoglobin Sodium Potassium Chloride Carbon Dioxide BUN Creatinine Glucose POC Glucose 208 H 218 H Hemoglobin A1c Lactic Acid Calcium Ferritin Total Bilirubin AST ALT Alkaline Phosphatase Lactate Dehydrogenase C-Reactive Protein Total Protein Albumin Triglycerides 150 H Arterial Blood Glucose Arterial Blood Ionized Calcium Ur Specific [place] Vancomycin Trough Coronavirus (PCR) 12/12/20 12/12/20 12/13/20 17:05 23:18 03:36 WBC RBC Hgb Hct RDW Plt Count Lymph % (Auto) [place] % (Auto) Lymph # (Auto) [place] # (Auto) Baso # (Auto) Seg Neutrophils % Seg Neuts % (Manual) Lymphocytes % (Manual) Seg Neutrophils # Seg Neutrophils # Man Lymphocytes # (Manual) D-Dimer ABG pH POC ABG pCO2 61.5 H POC ABG pO2 77.6 L ABG pO2 ABG HCO3 ABG O2 Saturation ABG Base Excess ABG Hemoglobin 10.2 L ABG Oxyhemoglobin ABG Sodium 127.5 L ABG Potassium ABG Chloride 91.0 L ABG Glucose 232 H Oxyhemoglobin Carboxyhemoglobin Sodium Potassium Chloride Carbon Dioxide BUN Creatinine Glucose POC Glucose 187 H 176 H Hemoglobin A1c Lactic Acid Calcium Ferritin Total Bilirubin AST ALT Alkaline Phosphatase Lactate Dehydrogenase C-Reactive Protein Total Protein Albumin Triglycerides Arterial Blood Glucose 232 H Arterial Blood Ionized Calcium 4.2 L Ur Specific [place] Vancomycin Trough Coronavirus (PCR) 12/13/20 12/13/20 12/13/20 05:13 10:00 11:30 WBC RBC 3.50 L Hgb 10.5 L Hct 31.9 L RDW Plt Count Lymph % (Auto) [place] % (Auto) Lymph # (Auto) [place] # (Auto) Baso # (Auto) Seg Neutrophils % Seg Neuts % (Manual) 96.0 H Lymphocytes % (Manual) Seg Neutrophils # Seg Neutrophils # Man 9.2 H Lymphocytes # (Manual) 0.0 L D-Dimer ABG pH POC ABG pCO2 POC ABG pO2 ABG pO2 ABG HCO3 ABG O2 Saturation ABG Base Excess ABG Hemoglobin ABG Oxyhemoglobin ABG Sodium ABG Potassium ABG Chloride ABG Glucose Oxyhemoglobin Carboxyhemoglobin Sodium Potassium Chloride Carbon Dioxide BUN Creatinine Glucose POC Glucose 204 H Hemoglobin A1c Lactic Acid Calcium Ferritin Total Bilirubin AST ALT Alkaline Phosphatase Lactate Dehydrogenase C-Reactive Protein Total Protein Albumin Triglycerides Arterial Blood Glucose Arterial Blood Ionized Calcium Ur Specific [place] Vancomycin Trough Coronavirus (PCR) Positive A 12/13/20 12/13/20 12/13/20 11:30 12:01 18:04 WBC RBC Hgb Hct RDW Plt Count Lymph % (Auto) [place] % (Auto) Lymph # (Auto) [place] # (Auto) Baso # (Auto) Seg Neutrophils % Seg Neuts % (Manual) Lymphocytes % (Manual) Seg Neutrophils # Seg Neutrophils # Man Lymphocytes # (Manual) D-Dimer ABG pH POC ABG pCO2 POC ABG pO2 ABG pO2 ABG HCO3 ABG O2 Saturation ABG Base Excess ABG Hemoglobin ABG Oxyhemoglobin ABG Sodium ABG Potassium ABG Chloride ABG Glucose Oxyhemoglobin Carboxyhemoglobin Sodium 132 L Potassium Chloride 90.1 L Carbon Dioxide 41 H* D BUN Creatinine 0.2 L Glucose 249 H POC Glucose 224 H 172 H Hemoglobin A1c Lactic Acid Calcium 7.4 L Ferritin Total Bilirubin AST ALT 61 H Alkaline Phosphatase Lactate Dehydrogenase C-Reactive Protein Total Protein 5.7 L Albumin 2.3 L Triglycerides Arterial Blood Glucose Arterial Blood Ionized Calcium Ur Specific [place] Vancomycin Trough Coronavirus (PCR) 12/13/20 12/14/20 12/14/20 23:37 04:05 04:35 WBC RBC 3.37 L Hgb 10.1 L Hct 30.7 L RDW 15.4 H Plt Count Lymph % (Auto) [place] % (Auto) Lymph # (Auto) [place] # (Auto) Baso # (Auto) Seg Neutrophils % Seg Neuts % (Manual) 93.0 H Lymphocytes % (Manual) 3.0 L Seg Neutrophils # Seg Neutrophils # Man 7.8 H Lymphocytes # (Manual) 0.3 L D-Dimer ABG pH POC ABG pCO2 72.2 H POC ABG pO2 61.5 L ABG pO2 ABG HCO3 ABG O2 Saturation ABG Base Excess ABG Hemoglobin ABG Oxyhemoglobin 89.9 L ABG Sodium 131.4 L ABG Potassium ABG Chloride 91.0 L ABG Glucose 205 H Oxyhemoglobin Carboxyhemoglobin Sodium Potassium Chloride Carbon Dioxide BUN Creatinine Glucose POC Glucose 200 H Hemoglobin A1c Lactic Acid Calcium Ferritin Total Bilirubin AST ALT Alkaline Phosphatase Lactate Dehydrogenase C-Reactive Protein Total Protein Albumin Triglycerides Arterial Blood Glucose 205 H Arterial Blood Ionized Calcium 4.3 L Ur Specific [place] Vancomycin Trough Coronavirus (PCR) 12/14/20 12/14/20 04:35 05:12 WBC RBC Hgb Hct RDW Plt Count Lymph % (Auto) [place] % (Auto) Lymph # (Auto) [place] # (Auto) Baso # (Auto) Seg Neutrophils % Seg Neuts % (Manual) Lymphocytes % (Manual) Seg Neutrophils # Seg Neutrophils # Man Lymphocytes # (Manual) D-Dimer ABG pH POC ABG pCO2 POC ABG pO2 ABG pO2 ABG HCO3 ABG O2 Saturation ABG Base Excess ABG Hemoglobin ABG Oxyhemoglobin ABG Sodium ABG Potassium ABG Chloride ABG Glucose Oxyhemoglobin Carboxyhemoglobin Sodium 135 L Potassium Chloride 92.5 L Carbon Dioxide 38 H BUN Creatinine 0.2 L Glucose 184 H POC Glucose 176 H Hemoglobin A1c Lactic Acid Calcium 7.7 L Ferritin Total Bilirubin AST ALT Alkaline Phosphatase Lactate Dehydrogenase C-Reactive Protein Total Protein Albumin Triglycerides Arterial Blood Glucose Arterial Blood Ionized Calcium Ur Specific [place] Vancomycin Trough Coronavirus (PCR)
--- NOTE | 2020-12-14 11:36 | Progress Note ---
Assessment and Plan Cultures: SARS CoV-2 PCR: positive Blood culture: No growth 11/21/2020 tracheal aspirate culture: MRSA 12/09/2020 blood culture: no growth 12/09/2020 sputum culture: Klebsiella A/P: 59-year-old male with: #Bilateral pneumonia: secondary to COVID-19. Completed 5 days of abx, remdesivir. #Klebsiella on ET aspirate culture: ?colonization v/s true disease, difficult to differentiate. Will treat given development of low-grade temperatures and white count. #Right-sided pneumothorax and pneumomediastinum: Underwent placement of right- sided chest tube, likely secondary to COVID-19. #Acute hypoxic respiratory failure: Failed BiPAP. Remains on the vent. #Elevated d-dimer: DVT scan negative. Unable to get CTA Chest due to patients unstable clinical status #Transaminitis: secondary to COVID-19. Recs: -Cefepime de-escalated to Ceftriaxone, D4 today of 5 -very poor prognosis Dayday Driscoll MD, FACP [facility] ([facility] O: [phone] F: [phone] Subjective Date of service: 12/14/20 Principal diagnosis: COVID-19 Interval history: Low-grade fever. Remains on steroids, pressors. Remains intubated. Objective - Exam Narrative Exam: Physical Exam (reviewed in chart to minimize risk of transmission) Constitutional: deferred Head, Ears, Nose: deferred Eyes: deferred Neck: deferred Oral: deferred Cardiovascular: deferred Respiratory: deferred GI: deferred Musculoskeletal: deferred Skin: deferred Hem/Lymphatic: deferred Psych: deferred Neurological: deferred - Constitutional Vitals: Vital Signs Temp Pulse Resp BP Pulse Ox 99 F 80 15 92/53 98 12/14/20 08:00 12/14/20 11:00 12/14/20 11:00 12/14/20 11:00 12/14/20 11:00 Temperature -Last 24 Hours Temperature 99 F Temperature 99.1 F Temperature 98.6 F Temperature 98.1 F Temperature 99.7 F Temperature 99.9 F Temperature 99.9 F - Labs CBC & Chem 7: 12/14/20 04:35 12/14/20 04:35 Labs: Abnormal lab results 12/13/20 12/13/20 12/13/20 Range/Units 10:00 11:30 11:30 RBC 3.50 L (3.65-5.03) M/mm3 Hgb 10.5 L (11.8-15.2) gm/dl Hct 31.9 L (35.5-45.6) % RDW (13.2-15.2) % Seg Neuts % (Manual) 96.0 H (40.0-70.0) % Lymphocytes % (Manual) (13.4-35.0) % Seg Neutrophils # Man 9.2 H (1.8-7.7) K/mm3 Lymphocytes # (Manual) 0.0 L (1.2-5.4) K/mm3 POC ABG pCO2 (32.0-48.0) mmHg POC ABG pO2 (83-108) mmHg ABG Oxyhemoglobin (94-98) ABG Sodium (136.0-145.0) mmol/L ABG Chloride (98-107) mmol/L ABG Glucose (65-95) mg/dL Sodium 132 L (137-145) mmol/L Chloride 90.1 L (98-107) mmol/L Carbon Dioxide 41 H* D (22-30) mmol/L Creatinine 0.2 L (0.8-1.3) mg/dL Glucose 249 H (75-100) mg/dL POC Glucose (70-105) mg/dL Calcium 7.4 L (8.4-10.2) mg/dL ALT 61 H (7-56) units/L Total Protein 5.7 L (6.3-8.2) g/dL Albumin 2.3 L (3.9-5) g/dL Arterial Blood Glucose (65-95) mg/dL Arterial Blood Ionized Calcium (4.6-5.3) mg/dL Coronavirus (PCR) Positive A (Negative) 12/13/20 12/13/20 12/13/20 Range/Units 12:01 18:04 23:37 RBC (3.65-5.03) M/mm3 Hgb (11.8-15.2) gm/dl Hct (35.5-45.6) % RDW (13.2-15.2) % Seg Neuts % (Manual) (40.0-70.0) % Lymphocytes % (Manual) (13.4-35.0) % Seg Neutrophils # Man (1.8-7.7) K/mm3 Lymphocytes # (Manual) (1.2-5.4) K/mm3 POC ABG pCO2 (32.0-48.0) mmHg POC ABG pO2 (83-108) mmHg ABG Oxyhemoglobin (94-98) ABG Sodium (136.0-145.0) mmol/L ABG Chloride (98-107) mmol/L ABG Glucose (65-95) mg/dL Sodium (137-145) mmol/L Chloride (98-107) mmol/L Carbon Dioxide (22-30) mmol/L Creatinine (0.8-1.3) mg/dL Glucose (75-100) mg/dL POC Glucose 224 H 172 H 200 H (70-105) mg/dL Calcium (8.4-10.2) mg/dL ALT (7-56) units/L Total Protein (6.3-8.2) g/dL Albumin (3.9-5) g/dL Arterial Blood Glucose (65-95) mg/dL Arterial Blood Ionized Calcium (4.6-5.3) mg/dL Coronavirus (PCR) (Negative) 12/14/20 12/14/20 12/14/20 Range/Units 04:05 04:35 04:35 RBC 3.37 L (3.65-5.03) M/mm3 Hgb 10.1 L (11.8-15.2) gm/dl Hct 30.7 L (35.5-45.6) % RDW 15.4 H (13.2-15.2) % Seg Neuts % (Manual) 93.0 H (40.0-70.0) % Lymphocytes % (Manual) 3.0 L (13.4-35.0) % Seg Neutrophils # Man 7.8 H (1.8-7.7) K/mm3 Lymphocytes # (Manual) 0.3 L (1.2-5.4) K/mm3 POC ABG pCO2 72.2 H (32.0-48.0) mmHg POC ABG pO2 61.5 L (83-108) mmHg ABG Oxyhemoglobin 89.9 L (94-98) ABG Sodium 131.4 L (136.0-145.0) mmol/L ABG Chloride 91.0 L (98-107) mmol/L ABG Glucose 205 H (65-95) mg/dL Sodium 135 L (137-145) mmol/L Chloride 92.5 L (98-107) mmol/L Carbon Dioxide 38 H (22-30) mmol/L Creatinine 0.2 L (0.8-1.3) mg/dL Glucose 184 H (75-100) mg/dL POC Glucose (70-105) mg/dL Calcium 7.7 L (8.4-10.2) mg/dL ALT (7-56) units/L Total Protein (6.3-8.2) g/dL Albumin (3.9-5) g/dL Arterial Blood Glucose 205 H (65-95) mg/dL Arterial Blood Ionized Calcium 4.3 L (4.6-5.3) mg/dL Coronavirus (PCR) (Negative) 12/14/20 Range/Units 05:12 RBC (3.65-5.03) M/mm3 Hgb (11.8-15.2) gm/dl Hct (35.5-45.6) % RDW (13.2-15.2) % Seg Neuts % (Manual) (40.0-70.0) % Lymphocytes % (Manual) (13.4-35.0) % Seg Neutrophils # Man (1.8-7.7) K/mm3 Lymphocytes # (Manual) (1.2-5.4) K/mm3 POC ABG pCO2 (32.0-48.0) mmHg POC ABG pO2 (83-108) mmHg ABG Oxyhemoglobin (94-98) ABG Sodium (136.0-145.0) mmol/L ABG Chloride (98-107) mmol/L ABG Glucose (65-95) mg/dL Sodium (137-145) mmol/L Chloride (98-107) mmol/L Carbon Dioxide (22-30) mmol/L Creatinine (0.8-1.3) mg/dL Glucose (75-100) mg/dL POC Glucose 176 H (70-105) mg/dL Calcium (8.4-10.2) mg/dL ALT (7-56) units/L Total Protein (6.3-8.2) g/dL Albumin (3.9-5) g/dL Arterial Blood Glucose (65-95) mg/dL Arterial Blood Ionized Calcium (4.6-5.3) mg/dL Coronavirus (PCR) (Negative)
[2020-12-14] MEDS: cefTRIAXone/NS 2 GM/100 ML 2 GM/100 ML BAG IV SCH (11:49)
--- NOTE | 2020-12-14 14:04 | Progress Note ---
Assessment and Plan Assessment and plan: Sepsis secondary to MRSA pneumonia Completed antibiotics, Follow cultures -11/21/2020 tracheal aspirate culture: MRSA -12/09/2020 blood culture: no growth -12/09/2020 sputum culture: Klebsiella -Abx therapy -Trend CBC -ID consulted, appreciate recommendations Leukocytosis -Abx therapy -Trend CBC COVID-19 -11/16/2020 (+) -12/13/2020 (+) -ID consulted, appreciate recommendations -Pulmonary consulted, appreciate recommendations -Contact/droplet precautions -s/p remdisivir -Trend inflammatory markers -Anticoagulation per protocol Acute hypoxic hypercapnic respiratory failure -requiring intubation and mechanical ventilation -Continue ventilatory support, pulmonary critical following -Wean as tolerated and extubate, nebulizers IV steroids -ID and pulmonary critical following -Home oxygen evaluation when patient is stable Bilateral pneumothorax -status post bilateral chest tube placement -Mild improvement, chest tubes in place ,continue supportive care, surgery pulmonary following Pneumomediastinum w/ subcutaneous emphysema, -Continue supportive care -Chest tube placement -Surgery consulted Elevated d-dimer -DVT scan negative -Unable to get CTA Chest due to patients unstable clinical status Transaminitis -Secondary to COVID-19 -Trend LFTs Klebsiella on ET aspirate culture -Per ID: ?colonization v/s true disease -Cefepime de-escalated to Ceftriaxone Type II Diabetes Mellitus -Accu-Chek ACHS -Sliding scale coverage -ADA diet -Long-acting insulin as needed DVT prophylaxis -SCDS to BLE -Lovenox subq History Interval history: 59-year-old female who is smoker who presented to [facility] with shortness of breath cough fever weakness for 1 to 2 days prior to arrival. Per EMS the patient was severely hypoxic with saturations in the low 80s. With all oxygen and nonrebreather came down to low 90s. ID, pulmonary, CCM were consulted. 2: Patient continues on BiPAP throughout the night. Labs are remarkable for hypoxia with improving renal function but lactic acidosis without fever. CTA has been ordered to rule out pulmonary embolism. I agree with increasing enoxaparin to twice daily full dose for empiric treatment of pulmonary embolism. Will obtain ID consultation on further evaluation for possible underlying pneumonia versus COVID-19. We will also obtain echocardiogram for evaluation. Will discontinue fluids at this time. 2/2; Continue supportive care, Patient remains with very guarded prognosis, remains on BiPAP, continues on Remdesivir, and steroids. Will continue anticoagulation, unable to get CTA Chest due to patients unstable clinical status. Will adjust insulin for better blood glucose 2/3: Continues on BIPAP, no clear improvement at this time. Will continue steroids therapy Remdesivir and also Full anticoagulation at this time. Will update family. Discussed with Heel Packer. 11/19: Taking a break from the BiPAP on high flow and nonrebreather 100% with saturation of 90% becomes hypoxic with any movement. Heel Packer input noted will get a dose of Lasix today. Will await a discussion with ID for possibly increasing steroid. I updated Patient's Cousin, Tayla Esquivel who is the emergency surgical appliances salesperson. Blood sugar remains fluctuating secondary to steriods, Encouraged Prone positioning. Noted with mild hyponatremia we will continue to monitor and manage 2: Continue supportive care wean oxygen as tolerated prognosis remains guarded. Encouraged to progress as tolerated. Awaiting labs today. Discussed with nursing staff and patient at bedside. 2: Discontinued Dexamethasone as Solumedrol started secondary to increased oxygen demand. Will give additional insulin for better control. Continue oxygen support patient still on high flow. Prognosis still guarded 11/22: Patient was intubated and placed on mechanical ventilation. Continue current medication. Will check a.m. labs today. Noted still with hypotension. Doubt septic shock at this time as patient has no new fever. Will adjust insulin for better blood sugar control. 11/23: Patient admitted with COVID-19 despite all efforts patient remains severely hypoxic and now is intubated. Heel Packer input noted. Blood pressure marginal at this time. Very poor prognosis. Continue Solu-Medrol. 11/24. Patient remains very hypoxic. Blood pressure borderline. Plan for initiation of paralytic agents as per weed eradicator. Patient may need to be transferred if no improvement. 11/26. Off paralytics. Remains intubated. On steroids. Prognosis is poor. 11/27. Chest xray shows pneumomediastinum and subcutaneous emphysema. Surgery consulted. Plan for chest tube placement. Sputum culture grew MRSA. Patient started on vancomycin per ID. 11/28. Right chest tube placed yesterday by surgery. Repeat chest x-ray showed left small pneumothorax. Plan for chest tube placement on the left today. Remains on paralytic agents. 11/29. Remains intubated on vent. Had left chest tube placed yesterday. Vitals reviewed. Critical care following 11/30/ Remains on mechanical ventilation. Worsening hypoxia. Bilateral chest tubes in place. Vitals reviewed. Labs reviewed 12/01: Chest tube and mechanical ventilation remains in place, poor prognosis, FIO2 remains at 90%, adjust insulin for better blood glucose control 12/02: Patient remains on full ventilatory support and steroids, still with worsening leukocytosis ?inflammatory or infectious vs steroids. Continue vancomycin. 12/03; slowly weaning, 12/04: Still on the vent FiO2 down to 65% PEEP remains at 18. Still with poor prognosis. 12/05: Patient continues on full ventilatory support per weed eradicator PEEP remains at 18. Still with hypercapnic respiratory failure. FiO2 down to 60% this morning. Chest tube to suction still weaning off steroids in the deliberation ongoing for possible a third chest tube as last documentation by surgery shows no plan for it at this time. Continue to manage insulin for better blood sugar control. 12/06:weaned down to 60%, continue supportive care, unable to wean, 12/07; patient remains intubated on ventilatory support, chest tubes in place trach and PEG when patient's Covid test is negative,Per surgery. 12/08; Patient remains intubated remains with hypercapnia and hypoxia. Chest tube still remain in place. He is off antibiotics at this time. Continue steroids which is likely resultant to the leukocytosis. Heel Packer and surgeon following ID input is noted. Prognosis remains guarded to poor 12/10; patient remains intubated on vent, unable to wean awaiting trach and PEG when Covid test is negative, Continue current management 12/11; patient awaiting trach and PEG when Covid test is negative, vent dependent, poor prognosis 12/12; clinically no change, vent dependent, Patient is critically ill with very poor prognosis, awaiting trach and PEG when COVID-19 test turns negative. Plan discussed with nursing staff. Caregivers have discussed with patient's family periodically 12/13: Patient is critically ill with very poor prognosis, awaiting trach and PEG when COVID-19 test turns negative. Plan discussed with nursing staff. Caregivers have discussed with patient's family periodically 12/14: Increase UOP which we will monitor and replete as needed. Patient remain hypoxemic on ABG despite 100 FiO2, remains on fentanyl, precedex, versed and levo gtt. Hospitalist Physical - Constitutional Vitals: Temp Pulse Resp BP Pulse Ox 98.4 F 89 26 H 162/94 94 12/14/20 12:00 12/14/20 12:30 12/14/20 12:30 12/14/20 12:30 12/14/20 12:30 General appearance: Present: mild distress, well-nourished, obese, other (Vent dependent) - EENT Eyes: Present: PERRL ENT: clear oral mucosa - Neck Neck: Present: normal ROM - Respiratory Respiratory effort: normal - Cardiovascular Rhythm: regular Heart Sounds: Present: S1 & S2. Absent: systolic murmur, diastolic murmur - Extremities Extremities: no ischemia, pulses intact, pulses symmetrical, No edema, normal temperature, normal color, Full ROM Peripheral Pulses: within normal limits - Abdominal General gastrointestinal: soft, non-tender, non-distended, normal bowel sounds - Integumentary Integumentary: Present: clear, warm, dry - Psychiatric Psychiatric: cooperative - Neurologic Neurologic: no focal deficits - Allied Health Allied health notes reviewed: nursing HEART Score - HEART Score Troponin: Troponin T < 0.010 ng/mL (0.00-0.029) 12/11/20 06:30 Results - Labs CBC & Chem 7: 12/14/20 04:35 12/14/20 04:35 Labs: Laboratory Last Values WBC 8.4 K/mm3 (4.5-11.0) 12/14/20 04:35 RBC 3.37 M/mm3 (3.65-5.03) L 12/14/20 04:35 Hgb 10.1 gm/dl (11.8-15.2) L 12/14/20 04:35 Hct 30.7 % (35.5-45.6) L 12/14/20 04:35 MCV 91 fl (84-94) 12/14/20 04:35 MCH 30 pg (28-32) 12/14/20 04:35 MCHC 33 % (32-34) 12/14/20 04:35 RDW 15.4 % (13.2-15.2) H 12/14/20 04:35 Plt Count 253 K/mm3 (140-440) 12/14/20 04:35 Lymph % (Auto) 2.0 % (13.4-35.0) L 11/27/20 06:25 Kerr % (Auto) 5.2 % (0.0-7.3) 11/27/20 06:25 Eos % (Auto) 0.0 % (0.0-4.3) 11/27/20 06:25 Baso % (Auto) 0.1 % (0.0-1.8) 11/27/20 06:25 Lymph # (Auto) 0.3 K/mm3 (1.2-5.4) L 11/27/20 06:25 Kerr # (Auto) 0.7 K/mm3 (0.0-0.8) 11/27/20 06:25 Eos # (Auto) 0.0 K/mm3 (0.0-0.4) 11/27/20 06:25 Baso # (Auto) 0.0 K/mm3 (0.0-0.1) 11/27/20 06:25 Add Manual Diff Complete 12/14/20 04:35 Total Counted 100 12/14/20 04:35 Seg Neutrophils % Character Actor 12/14/20 04:35 Seg Neuts % (Manual) 93.0 % (40.0-70.0) H 12/14/20 04:35 Band Neutrophils % 2.0 % 12/13/20 11:30 Lymphocytes % (Manual) 3.0 % (13.4-35.0) L 12/14/20 04:35 Monocytes % (Manual) 4.0 % (0.0-7.3) 12/14/20 04:35 Nucleated RBC % Not Reportable 12/14/20 04:35 Seg Neutrophils # 12.7 K/mm3 (1.8-7.7) H 11/27/20 06:25 Seg Neutrophils # Man 7.8 K/mm3 (1.8-7.7) H 12/14/20 04:35 Band Neutrophils # 0.0 K/mm3 12/14/20 04:35 Lymphocytes # (Manual) 0.3 K/mm3 (1.2-5.4) L 12/14/20 04:35 Abs React Lymphs (Man) 0.0 K/mm3 12/14/20 04:35 Monocytes # (Manual) 0.3 K/mm3 (0.0-0.8) 12/14/20 04:35 Eosinophils # (Manual) 0.0 K/mm3 (0.0-0.4) 12/14/20 04:35 Basophils # (Manual) 0.0 K/mm3 (0.0-0.1) 12/14/20 04:35 Metamyelocytes # 0.0 K/mm3 12/14/20 04:35 Myelocytes # 0.0 K/mm3 12/14/20 04:35 Promyelocytes # 0.0 K/mm3 12/14/20 04:35 Blast Cells # 0.0 K/mm3 12/14/20 04:35 WBC Morphology Not Reportable 12/14/20 04:35 Hypersegmented Neuts Not Reportable 12/14/20 04:35 Hyposegmented Neuts Not Reportable 12/14/20 04:35 Hypogranular Neuts Not Reportable 12/14/20 04:35 Smudge Cells Not Reportable 12/14/20 04:35 Toxic Granulation Not Reportable 12/14/20 04:35 Toxic Vacuolation Not Reportable 12/14/20 04:35 Dohle Bodies Not Reportable 12/14/20 04:35 Pelger-Huet Anomaly Not Reportable 12/14/20 04:35 Tony Rods Not Reportable 12/14/20 04:35 Platelet Estimate Consistent w auto 12/14/20 04:35 Clumped Platelets Not Reportable 12/14/20 04:35 Plt Clumps, EDTA Not Reportable 12/14/20 04:35 Large Platelets Not Reportable 12/14/20 04:35 Giant Platelets Not Reportable 12/14/20 04:35 Platelet Satelliting Not Reportable 12/14/20 04:35 Plt Morphology Comment Not Reportable 12/14/20 04:35 RBC Morphology Not Reportable 12/14/20 04:35 Dimorphic RBCs Not Reportable 12/14/20 04:35 Polychromasia Not Reportable 12/14/20 04:35 Hypochromasia Few 12/14/20 04:35 Poikilocytosis Not Reportable 12/14/20 04:35 Anisocytosis Few 12/14/20 04:35 Microcytosis Not Reportable 12/14/20 04:35 Macrocytosis Not Reportable 12/14/20 04:35 Spherocytes Not Reportable 12/14/20 04:35 Pappenheimer Bodies Not Reportable 12/14/20 04:35 Sickle Cells Not Reportable 12/14/20 04:35 Target Cells Not Reportable 12/14/20 04:35 Tear Drop Cells Not Reportable 12/14/20 04:35 Ovalocytes Not Reportable 12/14/20 04:35 Stomatocytes 1+ 12/03/20 04:35 Helmet Cells Not Reportable 12/14/20 04:35 Cabrera-Lucan Bodies Not Reportable 12/14/20 04:35 [place] Rings Not Reportable 12/14/20 04:35 [place] Cells Not Reportable 12/14/20 04:35 Bite Cells Not Reportable 12/14/20 04:35 Crenated Cell Not Reportable 12/14/20 04:35 Elliptocytes Not Reportable 12/14/20 04:35 Acanthocytes (Spur) Not Reportable 12/14/20 04:35 Rouleaux Not Reportable 12/14/20 04:35 Hemoglobin C Crystals Not Reportable 12/14/20 04:35 Schistocytes Not Reportable 12/14/20 04:35 Malaria parasites Not Reportable 12/14/20 04:35 Yovani Bodies Not Reportable 12/14/20 04:35 Hem Pathologist Commnt No 12/14/20 04:35 D-Dimer 926.11 ng/mlDDU (0-234) H 11/26/20 06:04 ABG pH 7.368 (7.320-7.450) 12/14/20 04:05 POC ABG pCO2 72.2 mmHg (32.0-48.0) H 12/14/20 04:05 ABG pCO2 81.3 mm Hg 12/08/20 04:12 POC ABG pO2 61.5 mmHg (83-108) L 12/14/20 04:05 ABG pO2 69.7 mm Hg (80.0-90.0) L 12/08/20 04:12 POC ABG HCO3 40.6 12/14/20 04:05 ABG HCO3 50.1 mmol/L (20.0-26.0) H 12/08/20 04:12 ABG O2 Saturation 95.4 % (95.0-99.0) 12/08/20 04:12 ABG O2 Content 13.0 (0.0-44) 12/07/20 05:20 POC ABG Base Excess 12.5 12/14/20 04:05 ABG Base Excess 21.6 mmol/L (-2.0-3.0) H 12/08/20 04:12 ABG Hemoglobin 12.1 (12.0-17.5) 12/14/20 04:05 ABG Oxyhemoglobin 89.9 (94-98) L 12/14/20 04:05 ABG Carboxyhemoglobin 2.0 % (0.0-5.0) 12/08/20 04:12 ABG Methemoglobin 0.3 (0.0-1.5) 12/14/20 04:05 ABG Sodium 131.4 mmol/L (136.0-145.0) L 12/14/20 04:05 ABG Potassium 4.4 mmol/L (3.40-4.50) 12/14/20 04:05 ABG Chloride 91.0 mmol/L (98-107) L 12/14/20 04:05 ABG Glucose 205 mg/dL (65-95) H 12/14/20 04:05 Oxyhemoglobin 93.2 % (95.0-99.0) L 12/08/20 04:12 Carboxyhemoglobin 1.1 (0.5-1.5) 12/14/20 04:05 FiO2 100 12/14/20 04:05 Sodium 135 mmol/L (137-145) L 12/14/20 04:35 Potassium 4.7 mmol/L (3.6-5.0) 12/14/20 04:35 Chloride 92.5 mmol/L (98-107) L 12/14/20 04:35 Carbon Dioxide 38 mmol/L (22-30) H 12/14/20 04:35 Anion Gap 9 mmol/L 12/14/20 04:35 BUN 12 mg/dL (9-20) 12/14/20 04:35 Creatinine 0.2 mg/dL (0.8-1.3) L 12/14/20 04:35 Estimated GFR > 60 ml/min 12/14/20 04:35 BUN/Creatinine Ratio 60 % 12/14/20 04:35 Glucose 184 mg/dL (75-100) H 12/14/20 04:35 POC Glucose 176 mg/dL (70-105) H 12/14/20 05:12 Hemoglobin A1c 11.7 % (4-6) H 11/16/20 05:29 Lactic Acid 2.60 mmol/L (0.7-2.0) H* 11/16/20 05:29 Calcium 7.7 mg/dL (8.4-10.2) L 12/14/20 04:35 Phosphorus 2.90 mg/dL (2.5-4.5) 12/04/20 Unknown Magnesium 1.80 mg/dL (1.7-2.3) 12/14/20 04:35 Ferritin 778.8 ng/mL (30.0-300.0) H 11/26/20 04:00 Total Bilirubin 0.50 mg/dL (0.1-1.2) 12/13/20 11:30 AST 34 units/L (5-40) 12/13/20 11:30 ALT 61 units/L (7-56) H 12/13/20 11:30 Alkaline Phosphatase 117 units/L (35-129) 12/13/20 11:30 Lactate Dehydrogenase 288 units/L (91-180) H 11/26/20 04:00 Troponin T < 0.010 ng/mL (0.00-0.029) 12/11/20 06:30 C-Reactive Protein 1.40 mg/dL (0.00-1.30) H 11/26/20 04:00 NT-Pro-B Natriuret Pep 107.2 pg/mL (0-900) 11/17/20 10:21 Total Protein 5.7 g/dL (6.3-8.2) L 12/13/20 11:30 Albumin 2.3 g/dL (3.9-5) L 12/13/20 11:30 Albumin/Globulin Ratio 0.7 % 12/13/20 11:30 Triglycerides 150 mg/dL (2-149) H 12/12/20 05:16 Procalcitonin 0.16 ng/mL (<0.15) 12/12/20 05:16 Arterial Blood Glucose 205 mg/dL (65-95) H 12/14/20 04:05 Arterial Blood Ionized Calcium 4.3 mg/dL (4.6-5.3) L 12/14/20 04:05 Urine Color Faustina (Yellow) 11/16/20 01:45 Urine Turbidity Slightly-cloudy (Clear) 11/16/20 01:45 Urine pH 6.0 (5.0-7.0) 11/16/20 01:45 Ur Specific [place] 1.037 (1.003-1.030) H 11/16/20 01:45 Urine Protein 30 mg/dl mg/dL (Negative) 11/16/20 01:45 Urine Glucose (UA) >=500 mg/dL (Negative) 11/16/20 01:45 Urine Ketones 20 mg/dL (Negative) 11/16/20 01:45 Urine Blood Neg (Negative) 11/16/20 01:45 Urine Nitrite Neg (Negative) 11/16/20 01:45 Urine Bilirubin Neg (Negative) 11/16/20 01:45 Urine Urobilinogen 2.0 mg/dL (<2.0) 11/16/20 01:45 Ur Leukocyte Esterase Neg (Negative) 11/16/20 01:45 Urine WBC (Auto) 2.0 /HPF (0.0-6.0) 11/16/20 01:45 Urine RBC (Auto) 1.0 /HPF (0.0-6.0) 11/16/20 01:45 Urine Bacteria (Auto) 1+ /HPF (Negative) 11/16/20 01:45 Urine Mucus 3+ /HPF 11/16/20 01:45 Vancomycin Trough 4.0 ug/mL (5.0-20.0) L 11/29/20 15:40 Coronavirus (PCR) Positive (Negative) A 12/13/20 10:00 Microbiology: Microbiology 11/21/20 23:49 Tracheal Aspirate Sputum Culture - Final Methicillin Resist S. Aureus 12/09/20 11:37 Peripheral/Venous Blood Culture - Final NO GROWTH AFTER 5 DAYS 12/09/20 11:37 Peripheral/Venous Blood Culture - Final NO GROWTH AFTER 5 DAYS - Diagnostic Impressions Diagnostic Impressions: Echocardiogram 11/16/20 10:34 Transthoracic Echocardiogram Indication: Shortness of breath-COVID BP: 108/77 HR: 92 Conclusions *Global left ventricular systolic function is normal. *The estimated ejection fraction is 60-65%. *Mild to moderate concentric left ventricular hypertrophy is observed. *There is trace of mitral regurgitation. *There is mild to moderate tricuspid regurgitation. *There is evidence of mild pulmonary hypertension. *The right ventricular systolic pressure is calculated at 31 mmHg. Findings Left Ventricle: The left ventricular chamber size is normal. Mild to moderate concentric left ventricular hypertrophy is observed. Global left ventricular systolic function is normal. The estimated ejection fraction is 60-65%. Left Atrium: The left atrial chamber size is normal. Right Ventricle: The right ventricular cavity size is normal. The right ventricular global systolic function is normal. Right Atrium: The right atrial cavity size is normal. Aortic Valve: The aortic valve is trileaflet. There is no evidence of aortic regurgitation. There is no evidence of aortic stenosis. Mitral Valve: The mitral valve leaflets appear normal. There is trace of mitral regurgitation. There is no evidence of mitral stenosis. Tricuspid Valve: The tricuspid valve leaflets are normal. There is mild to moderate tricuspid regurgitation. The right ventricular systolic pressure is calculated at 31 mmHg. There is evidence of mild pulmonary hypertension. Pulmonic Valve: There is trace pulmonic regurgitation. Pericardium: There is no pericardial effusion. Aorta: There is no dilatation of the ascending aorta. There is no dilatation of the aortic root. Venous: The inferior vena cava appears normal in size. Measurements Chambers 2D Name Value Normal Range IVSd (2D) 0.81 cm (0.6 - 1.1) LVPWd (2D) 0.79 cm (0.6 - 1.1) LVIDd (2D) 4.22 cm (3.7 - 5.6) LVIDs (2D) 3.1 cm (2 - 3.8) LV FS (2D) 26.71 % - EF Teichholz (2D) 52.55 % - Ao root diameter (2D) 3.34 cm (2 - 3.7) Volumes/Mass Name Value Normal Range LA ESV SP 4CH (A/L) 10.87 ml - LA ESV SP 2CH (A/L) 18.74 ml - LA ESV BP (A/L) 16.38 ml - LA ESV BP (A/L) index 8.62 ml/m2 - LA ESV SP 4CH (MOD) 10.32 ml - LA ESV SP 2CH (MOD) 17.66 ml - LA ESV BP (MOD) 15.12 ml - LA ESV BP (MOD) index 7.96 ml/m2 - Diastolic/Systolic Function Name Value Normal Range MV E-wave Vmax 0.76 m/sec - MV deceleration time 133.63 msec - MV A-wave Vmax 1.1 m/sec - MV E:A ratio 0.69 ratio - Aortic Valve Name Value Normal Range AV Vmax 1.44 m/sec - AV VTI 22.94 cm - AV peak gradient 8.33 mmHg - AV mean gradient 4.73 mmHg - LVOT diameter 2.2 cm - LVOT Vmax 1.04 m/sec - LVOT VTI 18.88 cm - LVOT peak gradient 4.34 mmHg - LVOT mean gradient 2.31 mmHg - SV LVOT 72.05 ml - EVANGELISTA (continuity Vmax) 2.75 cm2 - EVANGELISTA (continuity VTI) 3.14 cm2 - Tricuspid Valve Name Value Normal Range TR Vmax 2.64 m/sec - TR peak gradient 28 mmHg - RAP 3 mmHg - RVSP 31 mmHg - Gupta/IV: Voiding Method Indwelling Catheter IV Catheter Type [Left Peripheral IV Antecubital] Active Medications - Current Medications Current Medications: Generic Name Dose Route Start Last Admin Trade Name Freq PRN Reason Stop Dose Admin Acetaminophen 650 mg 11/15/20 23:55 12/09/20 00:14 Acetaminophen 325 Mg Tab PO 650 mg Q4H PRN Administration Pain MILD(1-3)/Fever >100.5/BUTTS Lipase/Protease/Amylase 1 each 11/23/20 11:53 12/05/20 23:45 Lipase 10,500/Protease 25,000/Amylase 43,750 (Units) Dr Slater FEEDTUBE 1 each PRN PRN Administration For Clogged Feeding Tube Dextrose 25 ml 12/10/20 05:21 12/10/20 05:24 Dextrose 50% In Water (25gm) 50 Ml Syringe IV 25 ml Q30MIN PRN Administration Hypoglycemia Protocol Enoxaparin Sodium 40 mg 12/03/20 22:00 12/13/20 21:11 Enoxaparin 40 Mg/0.4 Ml Inj SUB-Q 40 mg QDAY@2200 RAEANN Administration Famotidine 20 mg 11/22/20 22:00 12/14/20 09:06 Famotidine 20 Mg/2 Ml Inj IV 20 mg BID RAEANN Administration Fentanyl 50 mcg 11/21/20 21:53 12/11/20 18:54 Fentanyl 100 Mcg/2 Ml Inj IV 50 mcg Q10MIN PRN Administration ANALGESIA Hydrophilic Ointment 1 applic 11/21/20 21:53 11/30/20 21:33 Lip Therapy Vaseline TP 1 applic Q2HR PRN Administration Dry Lips Fentanyl Citrate 2,000 mcg in 100 mls @ 3.625 mls/hr 11/21/20 22:00 12/14/20 08:23 Fentanyl Drip Premix IV 4 mcg/kg/hr TITR RAEANN 14.5 mls/hr Administration Protocol 1 MCG/KG/HR Midazolam HCl 100 mg/ Sodium 100 mls @ 2 mls/hr 11/21/20 22:00 12/14/20 08:00 Chloride IV 5 mg/hr TITR RAEANN 5 mls/hr Administration Protocol 2 MG/HR Norepinephrine 4 mg in 250 mls @ 7.5 mls/hr 11/22/20 17:00 12/14/20 06:37 Levophed Drip 4 Mg/Ns 250 Ml IV 8 mcg/min TITR RAEANN 30 mls/hr Administration Protocol 2 MCG/MIN Propofol 1,000 mg in 100 mls @ 2.175 mls/hr 11/27/20 12:00 12/11/20 17:55 Diprivan 10 Mg/Ml IV 0 mcg/kg/min TITR RAEANN 0 mls/hr Titration Protocol 5 MCG/KG/MIN Dexmedetomidine HCl 400 mcg/ 104 mls @ 4.441 mls/hr 12/10/20 13:00 12/14/20 08:26 Sodium Chloride IV 0.9 mcg/kg/hr TITRATE RAEANN 19.984 mls/hr Administration Protocol 0.2 MCG/KG/HR Ceftriaxone Sodium 2 gm in 100 mls @ 200 mls/hr 12/14/20 12:00 12/14/20 11:49 Rocephin/Ns 2 Gm/100 Ml IV 12/15/20 10:29 200 mls/hr Q24HR [facility] Administration Protocol Insulin Glargine 5 units 12/14/20 22:00 Insulin Glargine 100 Units/Ml SUB-Q QHS [facility] Insulin Human Lispro 0 unit 11/22/20 06:00 12/14/20 11:50 Insulin Lispro 100 Unit/Ml SUB-Q 4 unit Q6HR [facility] Administration Protocol Methylprednisolone Sodium Succinate 20 mg 12/15/20 10:00 Methylprednisolone Sod Succinate 40 Mg/1 Ml Inj IV Q24HR RAEANN Metoclopramide HCl 10 mg 11/15/20 23:55 Metoclopramide 10 Mg/2 Ml Inj IV Q6H PRN Nausea And Vomiting Multi-Ingred Cream/Lotion/Oil/Oint 1 applic 11/21/20 21:53 Mineral Oil/Petrolatum, White Ophth Oint 3.5 Gm OU Q4HR PRN Dry Eye(s) Ondansetron HCl 4 mg 11/15/20 23:55 Ondansetron 4 Mg/2 Ml Inj IV Q8H PRN Nausea And Vomiting Senna/Docusate Sodium 2 tab 12/03/20 13:00 12/14/20 09:07 Sennosides/Docusate Sodium 8.6/50 Mg Tab PO 2 tab BID RAEANN Administration Simple Syrup 15 ml 11/23/20 11:53 Simple Syrup 15 Ml FEEDTUBE PRN PRN Hypoglycemia Simple Syrup 30 ml 11/23/20 11:53 Simple Syrup 15 Ml FEEDTUBE PRN PRN Hypoglycemia Sodium Bicarbonate 325 mg 11/23/20 11:53 12/05/20 23:46 Sodium Bicarbonate 325 Mg Tab FEEDTUBE 325 mg PRN PRN Administration For Clogged Feeding Tube Sodium Chloride 10 ml 11/16/20 10:00 12/14/20 09:07 Sodium Chloride 0.9% 10 Ml Flush Syringe IV 10 ml BID RAEANN Administration Sodium Chloride 10 ml 11/15/20 23:55 12/03/20 00:21 Sodium Chloride 0.9% 10 Ml Flush Syringe IV 10 ml PRN PRN Administration LINE FLUSH Nutrition/Malnutrition Assess - Dietary Evaluation Nutrition/Malnutrition Findings: Nutrition Notes Start: 11/20/20 12:03 Freq: Status: Active Protocol: Document 12/09/20 11:11 AL (Rec: 12/09/20 11:25 AL [id number]) Co-Sign 12/09/20 11:11 LP Nutrition Notes Initial or Follow up Reassessment Current Diagnosis Diabetes,Sepsis,Respiratory Failure Other Pertinent Diagnosis Bilat pneu, COVID-19 (+) Current Diet Glucerna 1.2 at 60 ml/hr Labs/Tests Na 134 Cr .3 Pertinent Medications Propofol at 13.05 ml/hr (344 kcal) Solumedrol Senokot S Height 5 ft 6 in Weight 85.4 kg Usual Body Weight 80.5 kg Cook Sta Body Weight (kg) 64.54 BMI 30.4 Weight Status Overweight Subjective/Other Information F/U for TF tolerance. Pt tolerating TF at 60 ml/hr ( goal rate) Percent of energy/protein needs met: 100%/100% Burn Absent Trauma Absent GI Symptoms Last BM Difficulty In Swallowing,Chewing Food Allergy No Current % PO Negligible Minimum of two criteria Yes Energy Intake (severe) < or equal to 50% Estimated Energy Requirement > or equal to 5 days Interpretation of Weight Loss (severe) >2% in 1 week Fluid Accumulation Moderate to Severe (severe) #3 Nutrition Diagnosis Inadequate oral intake Diagnosis Progress(for reassessment Continues documentation) #2 Nutrition Diagnosis Malnutrition Diagnosis Progress(for reassessment Continues documentation) #1 Nutrition Diagnosis Unintended weight loss Diagnosis Progress(for reassessment Continues documentation) Is patient on ventilator? Yes Is Patient Ambulatory and/or Out of Bed No REE-([facility]-confined to bed) 1944.648 Kcal/Kg value to use for calculation 21 Approximate Energy Requirements Using 1793 kcal/Kg Calculation Used for Recommendations Kcal/kg Additional Notes Protein: 87-145 g/day (1.2-2g/ kg) Fluid: 1ml/kcal or per MD Nutrition Intervention Change Diet Order: Continue TF Nutrition Support: Glucerna 1.2 at 60 ml/hr. Flush 100 ml q4h Kcal 1,728 Protein (gm) 86 Fluid (mL) 1,159 Goal #1 TF tolerance Goal #2 Meet at least 75% of energy and protein needs via TF Anticipated Discharge Needs: Unknown at this time Follow-Up By: 12/16/20 Additional Comments FU for TF tolerance
[2020-12-14] MEDS: fentaNYL 100 MCG/2 ML INJ IV PRN (15:04)
--- NOTE | 2020-12-14 16:46 | Progress Note ---
Assessment and Plan 59-year-old male with 1. COVID PNA 2. VDRF 3. sepsis 4. Bilateral pneumothorax s/p bilateral chest tube placement CXR 12/14/2020: Satisfactory positioning of chest tubes. No PTX. No pneumomediastinum VENT: FIO2 95%, PEEP 18, TV: 425 RR: 30 Plan: 1. Vent management per ICU team 2. Continue b/l chest tubes to -[id number] suction, subcutaneous emphysema has resolved 3. routine CXRs 4. DVT ppx Very guarded prognosis. Will follow peripherally. Thank you. Please call with any questions or concerns. Evaluation and treatment of this patient was during the time of the national and state emergency arising from COVID19 coronavirus pandemic. Treatment and procedures performed meet the current and available best practice and guidelines for patient during the COVID pandemic. Subjective Date of service: 12/14/20 Narrative: Patient seen and examined. No overall change in condition. Remains on vent. Has bilateral chest tubes. Objective Vital Signs - 12hr 12/14/20 12/14/20 12/14/20 05:00 05:30 06:00 Temperature Pulse Rate 77 70 63 Pulse Rate [ From Monitor] Respiratory 16 18 16 Rate Blood Pressure 81/48 88/54 103/63 O2 Sat by Pulse 99 96 98 Oximetry 12/14/20 12/14/20 12/14/20 06:30 07:00 07:30 Temperature Pulse Rate 63 64 68 Pulse Rate [ From Monitor] Respiratory 15 15 15 Rate Blood Pressure 109/67 111/70 105/62 O2 Sat by Pulse 99 99 100 Oximetry 12/14/20 12/14/20 12/14/20 08:00 08:30 09:00 Temperature 99 F Pulse Rate 102 H 86 80 Pulse Rate [ 85 From Monitor] Respiratory 30 H 22 18 Rate Blood Pressure 139/87 131/74 126/74 O2 Sat by Pulse 98 97 98 Oximetry 12/14/20 12/14/20 12/14/20 09:30 10:00 10:30 Temperature Pulse Rate 77 78 82 Pulse Rate [ From Monitor] Respiratory 15 17 20 Rate Blood Pressure 110/66 121/74 95/56 O2 Sat by Pulse 97 96 96 Oximetry 12/14/20 12/14/20 12/14/20 11:00 11:30 11:48 Temperature Pulse Rate 80 93 H 98 H Pulse Rate [ From Monitor] Respiratory 15 26 H Rate Blood Pressure 92/53 129/75 116/70 O2 Sat by Pulse 98 95 96 Oximetry 12/14/20 12/14/20 12/14/20 12:00 12:30 13:00 Temperature 98.4 F Pulse Rate 81 89 94 H Pulse Rate [ 100 H From Monitor] Respiratory 27 H 26 H 23 Rate Blood Pressure 157/92 162/94 166/91 O2 Sat by Pulse 96 94 95 Oximetry 12/14/20 12/14/20 12/14/20 13:30 14:00 14:30 Temperature Pulse Rate 93 H 92 H 90 Pulse Rate [ From Monitor] Respiratory 18 18 17 Rate Blood Pressure 103/60 98/56 101/57 O2 Sat by Pulse 98 99 99 Oximetry 12/14/20 12/14/20 12/14/20 15:00 15:21 15:30 Temperature Pulse Rate 77 80 67 Pulse Rate [ From Monitor] Respiratory 17 18 Rate Blood Pressure 124/75 101/57 112/69 O2 Sat by Pulse 98 99 99 Oximetry 12/14/20 16:00 Temperature 99.8 F H Pulse Rate 63 Pulse Rate [ From Monitor] Respiratory 14 Rate Blood Pressure 107/68 O2 Sat by Pulse 98 Oximetry - General physical appearance Narrative Exam: Gen.: Intubated, sedated. Generalized anasarca ENT: ET tube and OG tube in place. Trachea midline. CV: S1, S2 present Respiratory: Bilateral chest tubes patent. Serous drainage from both chest tubes- minimal. No air leak. Subq emphysema has completely resolved. Extremities: Generalized edema - Labs 12/14/20 04:35 12/14/20 04:35 Diabetes panel 12/14/20 Range/Units 04:35 Sodium 135 L (137-145) mmol/L Potassium 4.7 (3.6-5.0) mmol/L Chloride 92.5 L (98-107) mmol/L Carbon Dioxide 38 H (22-30) mmol/L BUN 12 (9-20) mg/dL Creatinine 0.2 L (0.8-1.3) mg/dL Glucose 184 H (75-100) mg/dL Calcium 7.7 L (8.4-10.2) mg/dL Calcium panel 12/14/20 Range/Units 04:35 Calcium 7.7 L (8.4-10.2) mg/dL Pituitary panel 12/14/20 Range/Units 04:35 Sodium 135 L (137-145) mmol/L Potassium 4.7 (3.6-5.0) mmol/L Chloride 92.5 L (98-107) mmol/L Carbon Dioxide 38 H (22-30) mmol/L BUN 12 (9-20) mg/dL Creatinine 0.2 L (0.8-1.3) mg/dL Glucose 184 H (75-100) mg/dL Calcium 7.7 L (8.4-10.2) mg/dL Adrenal panel 12/14/20 Range/Units 04:35 Sodium 135 L (137-145) mmol/L Potassium 4.7 (3.6-5.0) mmol/L Chloride 92.5 L (98-107) mmol/L Carbon Dioxide 38 H (22-30) mmol/L BUN 12 (9-20) mg/dL Creatinine 0.2 L (0.8-1.3) mg/dL Glucose 184 H (75-100) mg/dL Calcium 7.7 L (8.4-10.2) mg/dL
[2020-12-14] MEDS: INSULIN GLARGINE 100 UNITS/ML SUB-Q SCH (21:11)
[2020-12-14] MEDS: ENOXAPARIN 40 MG/0.4 ML INJ SUB-Q SCH (21:11)
[2020-12-14] MEDS ORDERED: SODIUM CHLORIDE 0.9% 1000 ML 1,000 ML ONE (22:19)
[2020-12-15] MEDS: INSULIN LISPRO 100 UNIT/ML SUB-Q SCH ×4 (00:14→17:44)
[2020-12-15] MEDS: MIDAZOLAM 100 MG in SODIUM CHLORIDE 0.9% 80 ML IV SCH ×2 (02:54→17:43)
[2020-12-15] MEDS: fentaNYL DRIP Premix 2,000 MCG/100 ML BAG IV SCH ×3 (04:57→19:05)
[2020-12-15] MEDS: NORepinephrine/NS 4 MG-250 ML 4 MG/250 ML BAG IV SCH ×2 (07:48→19:05)
[2020-12-15] MEDS: FAMOTIDINE 20 MG/2 ML INJ IV SCH ×2 (10:26→21:43)
[2020-12-15] MEDS: cefTRIAXone/NS 2 GM/100 ML 2 GM/100 ML BAG IV SCH (10:26)
[2020-12-15] MEDS: methylPREDNISolone Sod Succinate 40 MG/1 ML INJ IV SCH (10:26)
[2020-12-15] MEDS: SENNOSIDES/DOCUSATE SODIUM 8.6/50 MG TAB PO SCH ×2 (10:28→21:43)
--- NOTE | 2020-12-15 11:21 | Progress Note ---
Assessment and Plan 59 y/o male with acute respiratory failure, abnormal CXR and abnormal lab studies. 12/15/20: Tolerating weaning from yesterday. RT to attempt to wean some more today. Kidney function remains unchanged. Guarded prognosis. 12/14/20: Unable to wean FiO2 today. Continue supportive measures. Great that his kidney function has maintained but given the amount of oxygen he continues to require, his chances of recovery continue to decrease. Family aware and will up date them as needed. Very very guarded prognosis. 12/13/20: WIll start Weaning FiO2 again tomorrow morning of PaO2 remains this good. Continue all other supportive measures. Guarded prognosis. Monitor renal function closely. 12/12/20: Long discussion with brother at door. Patient remains full code which is not unreasonable but family is realistic about outcome being poor. Will continue all supportive measures. IF clinical state worsens, will ask family to come back to see patient. Guarded Prognosis. 12/11/20: Will attempt to wean Diprovan off and increase precedex. Triglycerides were ok. IF we have to support with pressors we will but I have asked nursing to please be detailed in their checkouts as to why they did certain things with the continuous drips. Continue supportive measures. Brother is going to try to come and see him from [place] 12/10/20: No acute events overnight. Patient has had waxing and waning of the amount of oxygen he has required over the last 24-72 hours. I have a bad feeling that he is on the brink of cardiac arrest and this could happen at any moment. I am going to reach out to the brother today to explain to him my concerns. Patient is a full code. Very very guarded prognosis. 12/09/20: Repeat ABG later today. Wean FiO2 for sats >88%. Repeat CXR as well. With BP dropping could be relative adrenal insufficiency, will watch for now, however if pressor requirement increases would consider stress dose steroids and maybe volume replacement. Follow up cultures. Guarded prognosis. 12/08/20: Increase TV to 425. Drop FiO2 to 65% and wean for sats >88%. COntinue chest tubes. Change steroids to 20q12. 12/07/20: CXR is stable, no indication for another chest tube at this time. Will repeat ABG in 1 hour post change to 70% and wean accordingly. Dropping steroids to 20q8. Guarded prognosis. Same weaning parameters apply today as of 12/04/20 12/04/20: Continue to wean steroids to off. Continue to wean FiO2 for sats >88%. Keep PEEP at current level, would not feel comfortable weaning PEEP until FiO2 at 35-40%. Continue chest tubes to suction. PaO2 of >55, pH of >7.2 and sats >88% are acceptable. : Dropped steroids down to 40q8 and will start to wean from there. Continue to slowly wean FiO2 first, keep PEEP at current level. Spoke with Kehinde, please see my event note, who is the biological brother. He had no questions but thanked us for our care. Prognosis remains very very guarded. PaO2 of 55 and pH of >7.2 and sats of >88% are all acceptable. 12/02/20: Wean FiO2 for sats >88% and PaO2 >55. Unable to prone currently secondary to bilateral chest tubes. COntinue high dose steroids. CM To figure out who is the immediate next of kin that can make decisions and then we will discuss the current clinical situation with them. 12/01/20: Continue PEEP and FiO2 elevated to keep sats >88% and PaO2 >55. Small lung volumes and high PEEP. very very guarded prognosis. 11/30/20: Worsening hypoxemia. Chest tubes stable. Likely just worsening disease. Unable to prone now. Increase PEEP to 18 and FiO2 back up to 100. Continue 3 sedatives for RASS of -2. Obtain 12 lead to look at T waves as K was only 4.6 on yesterday. Guarded, guarded prognosis 11/29/20: Second chest tube in on yesterday. CXR is stable. ABG unchanged. Will likely increase PEEP now that chest tubes are in. No further paralytics. Still making good urine. Prognosis remains guarded. Will check chemistry to assess Potassium levels given peaked t's seen on monitor. 11/28/20: Second chest tube today. Once chest tube in, will likely increase PEEP to 18 and repeat gas about 2 hours after this. Continue paralytic today. No proning now that patient will have bilateral chest tubes. VEry guarded prognosis. 11/27/20: Spoke with surgery who have agreed to evaluate and placed chest tube on either right or left side pending CXR reading. Will monitor for 36-48 hours and if no resolution, will need chest tube placed on opposite side as well. Once placed, will likely paralyze again but hold on proning for now. Guarded prognosis. 11/26/20: Paralytics are off. Continue current level of sedation. Will prone for 12 hours today and repeat ABG in the am. Continue lung protective strategy. Guarded prognosis. 11/25/20: Prone again to 16 hours, will prone at 12-12:30. Continue paralytics for 24 more hours. Discussed the idea of permissive hypercapnea again today and as long as pH is above 7.2 no changes should be made to TV and or RR without d iscussing with physician. Continue to monitor urine output, guarded prognosis. Hold on lasix therapy today. 11/24/20: Prone again today. Will try 48 hours of paralyzing the patient to see if this will help with oxygenation. Will speak with RT's about permissive hypercapnea and that pH's of 7.2 and greater are ok. Continue high doses steroids. Prognosis is still very very guarded. If not improvement with paralytics, will attempt transfer. 11/23/20: Prone again today for 12 hours. Continue High Dose steroids. Hold on lasix given marginal BP's. Prognosis is very very guarded to poor. Will continue all supportive measures. If not able to wean from 100%, will attempt transfer for ECMO. 11/20/20: WIll change to solumedrol 60q6 today. Hold on lasix today. Given his increasing oxygen requirement, will likely end up intubated. OVerall prognosis is very poor. 11/19/20: lasix 40mg IV x1 today. Will speak with ID but may consider increasing steroids to see if this will help with oxygenation. Continue Remdesivir. Prognosis remains guarded. 11/18/20: Continue bipap, goal is to attempt to prevent prolong intubation for as long as possible. Lasix again today. Steroids and Remdesivir. Guarded Prognosis. 11/17/20: Continue bipap therapy. Monitor mental state. High risk for Intubation. Continue BID anticoagulation. Prone if able. BNP was elevated but not grossly elevated. Will still give lasix with hopes of achieving net negative state. STeroids and remdesivir. Overall prognosis is guarded, extremely guarded. 1. Pulm- Agree with concern for covid. Agree with empiric abx but procal is only mildly elevated. Await cultures. Continue bipap therapy for now but will need to monitor closely. QUAN has ordered CTA, but I spoke with pharmacy and we will empirically treat with BID lovenox therapy. COntinue empiric steroid therapy for COVID until studies back. Not sure that he will be able to prone on bipap therapy. Monitor volume status and run as dry as possible. 2. Renal-normal function but all electrolytes abnormal. HYponatremia and Hypochloremia volume up vs volume down. Sent BNP. Would suggest obtaning echo as well. Not sure what to make of elevated lactate unless that is from increased work of breathing or damage to other tissue unknown. May need to check LFT's and Coags as well. 3. Guarded Prognosis. CCT 31 minutes. Subjective Date of service: 12/15/20 Principal diagnosis: COVID-19 Interval history: No acute events. Down to 85%. Still at same PEEP and remains on pressors. Objective Vital Signs - 12hr 12/14/20 12/14/20 12/15/20 23:30 23:56 00:00 Temperature 98.4 F Pulse Rate 54 L 55 L Pulse Rate [ 53 L From Monitor] Respiratory 30 H 30 H Rate Blood Pressure 111/67 109/65 O2 Sat by Pulse 100 100 Oximetry 12/15/20 12/15/20 12/15/20 00:30 01:00 01:30 Temperature Pulse Rate 60 53 L 52 L Pulse Rate [ From Monitor] Respiratory 30 H 30 H 30 H Rate Blood Pressure 108/64 106/64 105/64 O2 Sat by Pulse 100 100 100 Oximetry 12/15/20 12/15/20 12/15/20 02:00 02:30 02:46 Temperature Pulse Rate 54 L 54 L Pulse Rate [ From Monitor] Respiratory 30 H 30 H Rate Blood Pressure 103/63 104/63 O2 Sat by Pulse 100 100 100 Oximetry 12/15/20 12/15/20 12/15/20 03:00 03:30 03:41 Temperature 98.8 F Pulse Rate 55 L 52 L Pulse Rate [ From Monitor] Respiratory 27 H 30 H Rate Blood Pressure 95/57 103/60 O2 Sat by Pulse 100 99 Oximetry 12/15/20 12/15/20 12/15/20 04:00 04:30 04:36 Temperature Pulse Rate 57 L 51 L 70 Pulse Rate [ 55 L From Monitor] Respiratory 26 H 30 H Rate Blood Pressure 102/65 98/57 106/64 O2 Sat by Pulse 100 100 100 Oximetry 12/15/20 12/15/20 12/15/20 05:00 05:30 06:00 Temperature Pulse Rate 75 90 99 H Pulse Rate [ From Monitor] Respiratory 17 22 21 Rate Blood Pressure 128/73 143/79 150/81 O2 Sat by Pulse 96 94 93 Oximetry 12/15/20 12/15/20 12/15/20 06:30 07:00 07:30 Temperature Pulse Rate 106 H 104 H 119 H Pulse Rate [ From Monitor] Respiratory 25 H 15 20 Rate Blood Pressure 152/83 134/83 128/88 O2 Sat by Pulse 92 95 95 Oximetry 12/15/20 12/15/20 12/15/20 08:00 08:16 08:30 Temperature 98.7 F Pulse Rate 119 H 132 H 80 Pulse Rate [ 55 L From Monitor] Respiratory 23 30 H Rate Blood Pressure 140/92 170/95 127/72 O2 Sat by Pulse 97 94 99 Oximetry 12/15/20 12/15/20 12/15/20 09:00 09:30 10:00 Temperature Pulse Rate 91 H 95 H 130 H Pulse Rate [ From Monitor] Respiratory 14 16 17 Rate Blood Pressure 131/74 129/74 141/88 O2 Sat by Pulse 98 96 94 Oximetry 12/15/20 12/15/20 10:30 11:00 Temperature Pulse Rate 100 H 102 H Pulse Rate [ From Monitor] Respiratory 31 H 20 Rate Blood Pressure 122/69 92/49 O2 Sat by Pulse 98 97 Oximetry Constitutional: other (on vent orally intubated) ENT: other (Now intubated) Ascultation: Bilateral: rales, rhonchi Percussion: Bilateral: not dull Cardiovascular: regular rate and rhythm Gastrointestinal: soft, non-tender Neurologic: other (on vent) CBC and BMP: 12/14/20 04:35 12/14/20 04:35 ABG, PT/INR, D-dimer: ABG ABG pH 7.417 (7.320-7.450) 12/15/20 03:19 POC ABG pCO2 62.0 mmHg (32.0-48.0) H 12/15/20 03:19 ABG pCO2 81.3 mm Hg 12/08/20 04:12 POC ABG pO2 66.0 mmHg (83-108) L 12/15/20 03:19 ABG pO2 69.7 mm Hg (80.0-90.0) L 12/08/20 04:12 POC ABG HCO3 39 12/15/20 03:19 ABG O2 Saturation 95.4 % (95.0-99.0) 12/08/20 04:12 PT/INR, D-dimer D-Dimer 926.11 ng/mlDDU (0-234) H 11/26/20 06:04 Abnormal lab findings: Abnormal Labs 11/15/20 11/15/20 11/15/20 10:39 10:39 10:39 WBC 14.3 H RBC 5.17 H Hgb Hct RDW Plt Count Lymph % (Auto) 7.8 L [place] % (Auto) 7.6 H Lymph # (Auto) 1.1 L [place] # (Auto) 1.1 H Baso # (Auto) Seg Neutrophils % 83.3 H Seg Neuts % (Manual) Lymphocytes % (Manual) Seg Neutrophils # 11.9 H Seg Neutrophils # Man Lymphocytes # (Manual) D-Dimer ABG pH POC ABG pCO2 POC ABG pO2 ABG pO2 ABG HCO3 ABG O2 Saturation ABG Base Excess ABG Hemoglobin ABG Oxyhemoglobin ABG Sodium ABG Potassium ABG Chloride ABG Glucose Oxyhemoglobin Carboxyhemoglobin Sodium 128 L Potassium Chloride 96.0 L Carbon Dioxide BUN Creatinine 0.7 L Glucose 238 H POC Glucose Hemoglobin A1c Lactic Acid 4.10 H* Calcium 7.0 L Ferritin Total Bilirubin 1.40 H AST 49 H ALT 70 H Alkaline Phosphatase Lactate Dehydrogenase 663 H C-Reactive Protein 19.80 H Total Protein Albumin 2.9 L Triglycerides Arterial Blood Glucose Arterial Blood Ionized Calcium Ur Specific [place] Vancomycin Trough Coronavirus (PCR) 11/15/20 11/15/20 11/15/20 10:39 10:39 11:20 WBC RBC Hgb Hct RDW Plt Count Lymph % (Auto) [place] % (Auto) Lymph # (Auto) [place] # (Auto) Baso # (Auto) Seg Neutrophils % Seg Neuts % (Manual) Lymphocytes % (Manual) Seg Neutrophils # Seg Neutrophils # Man Lymphocytes # (Manual) D-Dimer > 72196 H ABG pH POC ABG pCO2 29.9 L POC ABG pO2 137.3 H ABG pO2 ABG HCO3 ABG O2 Saturation ABG Base Excess ABG Hemoglobin ABG Oxyhemoglobin ABG Sodium 126.5 L ABG Potassium ABG Chloride ABG Glucose 248 H Oxyhemoglobin Carboxyhemoglobin Sodium Potassium Chloride Carbon Dioxide BUN Creatinine Glucose POC Glucose Hemoglobin A1c Lactic Acid Calcium Ferritin 672.8 H Total Bilirubin AST ALT Alkaline Phosphatase Lactate Dehydrogenase C-Reactive Protein Total Protein Albumin Triglycerides Arterial Blood Glucose 248 H Arterial Blood Ionized Calcium 4.1 L Ur Specific [place] Vancomycin Trough Coronavirus (PCR) 11/15/20 11/15/20 11/16/20 13:41 23:41 01:45 WBC RBC Hgb Hct RDW Plt Count Lymph % (Auto) [place] % (Auto) Lymph # (Auto) [place] # (Auto) Baso # (Auto) Seg Neutrophils % Seg Neuts % (Manual) Lymphocytes % (Manual) Seg Neutrophils # Seg Neutrophils # Man Lymphocytes # (Manual) D-Dimer ABG pH POC ABG pCO2 POC ABG pO2 ABG pO2 ABG HCO3 ABG O2 Saturation ABG Base Excess ABG Hemoglobin ABG Oxyhemoglobin ABG Sodium ABG Potassium ABG Chloride ABG Glucose Oxyhemoglobin Carboxyhemoglobin Sodium Potassium Chloride Carbon Dioxide BUN Creatinine Glucose POC Glucose 284 H Hemoglobin A1c Lactic Acid 2.30 H* Calcium Ferritin Total Bilirubin AST ALT Alkaline Phosphatase Lactate Dehydrogenase C-Reactive Protein Total Protein Albumin Triglycerides Arterial Blood Glucose Arterial Blood Ionized Calcium Ur Specific [place] 1.037 H Vancomycin Trough Coronavirus (PCR) 11/16/20 11/16/20 11/16/20 05:29 05:29 05:29 WBC 12.9 H RBC Hgb Hct RDW Plt Count Lymph % (Auto) 4.5 L [place] % (Auto) Lymph # (Auto) 0.6 L [place] # (Auto) Baso # (Auto) 0.2 H Seg Neutrophils % 89.8 H Seg Neuts % (Manual) Lymphocytes % (Manual) Seg Neutrophils # 11.5 H Seg Neutrophils # Man Lymphocytes # (Manual) D-Dimer ABG pH POC ABG pCO2 POC ABG pO2 ABG pO2 ABG HCO3 ABG O2 Saturation ABG Base Excess ABG Hemoglobin ABG Oxyhemoglobin ABG Sodium ABG Potassium ABG Chloride ABG Glucose Oxyhemoglobin Carboxyhemoglobin Sodium 131 L Potassium Chloride Carbon Dioxide 21 L BUN 23 H Creatinine 0.6 L Glucose 342 H POC Glucose Hemoglobin A1c Lactic Acid 2.60 H* Calcium 7.0 L Ferritin Total Bilirubin AST ALT Alkaline Phosphatase Lactate Dehydrogenase C-Reactive Protein Total Protein Albumin 2.4 L Triglycerides Arterial Blood Glucose Arterial Blood Ionized Calcium Ur Specific [place] Vancomycin Trough Coronavirus (PCR) 11/16/20 11/16/20 11/16/20 05:29 08:11 12:11 WBC RBC Hgb Hct RDW Plt Count Lymph % (Auto) [place] % (Auto) Lymph # (Auto) [place] # (Auto) Baso # (Auto) Seg Neutrophils % Seg Neuts % (Manual) Lymphocytes % (Manual) Seg Neutrophils # Seg Neutrophils # Man Lymphocytes # (Manual) D-Dimer ABG pH POC ABG pCO2 POC ABG pO2 ABG pO2 ABG HCO3 ABG O2 Saturation ABG Base Excess ABG Hemoglobin ABG Oxyhemoglobin ABG Sodium ABG Potassium ABG Chloride ABG Glucose Oxyhemoglobin Carboxyhemoglobin Sodium Potassium Chloride Carbon Dioxide BUN Creatinine Glucose POC Glucose 329 H 320 H Hemoglobin A1c 11.7 H Lactic Acid Calcium Ferritin Total Bilirubin AST ALT Alkaline Phosphatase Lactate Dehydrogenase C-Reactive Protein Total Protein Albumin Triglycerides Arterial Blood Glucose Arterial Blood Ionized Calcium Ur Specific [place] Vancomycin Trough Coronavirus (PCR) 11/16/20 11/16/20 11/16/20 16:13 21:29 Unknown WBC RBC Hgb Hct RDW Plt Count Lymph % (Auto) [place] % (Auto) Lymph # (Auto) [place] # (Auto) Baso # (Auto) Seg Neutrophils % Seg Neuts % (Manual) Lymphocytes % (Manual) Seg Neutrophils # Seg Neutrophils # Man Lymphocytes # (Manual) D-Dimer ABG pH POC ABG pCO2 POC ABG pO2 ABG pO2 ABG HCO3 ABG O2 Saturation ABG Base Excess ABG Hemoglobin ABG Oxyhemoglobin ABG Sodium ABG Potassium ABG Chloride ABG Glucose Oxyhemoglobin Carboxyhemoglobin Sodium Potassium Chloride Carbon Dioxide BUN Creatinine Glucose POC Glucose 257 H 376 H Hemoglobin A1c Lactic Acid Calcium Ferritin Total Bilirubin AST ALT Alkaline Phosphatase Lactate Dehydrogenase C-Reactive Protein Total Protein Albumin Triglycerides Arterial Blood Glucose Arterial Blood Ionized Calcium Ur Specific [place] Vancomycin Trough Coronavirus (PCR) Positive A 11/17/20 11/17/20 11/17/20 07:42 12:07 17:25 WBC RBC Hgb Hct RDW Plt Count Lymph % (Auto) [place] % (Auto) Lymph # (Auto) [place] # (Auto) Baso # (Auto) Seg Neutrophils % Seg Neuts % (Manual) Lymphocytes % (Manual) Seg Neutrophils # Seg Neutrophils # Man Lymphocytes # (Manual) D-Dimer ABG pH POC ABG pCO2 POC ABG pO2 ABG pO2 ABG HCO3 ABG O2 Saturation ABG Base Excess ABG Hemoglobin ABG Oxyhemoglobin ABG Sodium ABG Potassium ABG Chloride ABG Glucose Oxyhemoglobin Carboxyhemoglobin Sodium Potassium Chloride Carbon Dioxide BUN Creatinine Glucose POC Glucose 231 H 380 H 302 H Hemoglobin A1c Lactic Acid Calcium Ferritin Total Bilirubin AST ALT Alkaline Phosphatase Lactate Dehydrogenase C-Reactive Protein Total Protein Albumin Triglycerides Arterial Blood Glucose Arterial Blood Ionized Calcium Ur Specific [place] Vancomycin Trough Coronavirus (PCR) 11/17/20 11/18/20 11/18/20 21:53 04:25 07:45 WBC RBC Hgb Hct RDW Plt Count Lymph % (Auto) [place] % (Auto) Lymph # (Auto) [place] # (Auto) Baso # (Auto) Seg Neutrophils % Seg Neuts % (Manual) Lymphocytes % (Manual) Seg Neutrophils # Seg Neutrophils # Man Lymphocytes # (Manual) D-Dimer ABG pH POC ABG pCO2 POC ABG pO2 ABG pO2 ABG HCO3 ABG O2 Saturation ABG Base Excess ABG Hemoglobin ABG Oxyhemoglobin ABG Sodium ABG Potassium ABG Chloride ABG Glucose Oxyhemoglobin Carboxyhemoglobin Sodium 136 L Potassium Chloride Carbon Dioxide BUN 24 H Creatinine 0.6 L Glucose 212 H POC Glucose 293 H 216 H Hemoglobin A1c Lactic Acid Calcium 7.4 L Ferritin Total Bilirubin AST 41 H ALT Alkaline Phosphatase 142 H Lactate Dehydrogenase C-Reactive Protein Total Protein Albumin 2.3 L Triglycerides Arterial Blood Glucose Arterial Blood Ionized Calcium Ur Specific [place] Vancomycin Trough Coronavirus (PCR) 11/18/20 11/18/20 11/18/20 12:28 15:58 21:37 WBC RBC Hgb Hct RDW Plt Count Lymph % (Auto) [place] % (Auto) Lymph # (Auto) [place] # (Auto) Baso # (Auto) Seg Neutrophils % Seg Neuts % (Manual) Lymphocytes % (Manual) Seg Neutrophils # Seg Neutrophils # Man Lymphocytes # (Manual) D-Dimer ABG pH POC ABG pCO2 POC ABG pO2 ABG pO2 ABG HCO3 ABG O2 Saturation ABG Base Excess ABG Hemoglobin ABG Oxyhemoglobin ABG Sodium ABG Potassium ABG Chloride ABG Glucose Oxyhemoglobin Carboxyhemoglobin Sodium Potassium Chloride Carbon Dioxide BUN Creatinine Glucose POC Glucose 165 H 220 H 311 H Hemoglobin A1c Lactic Acid Calcium Ferritin Total Bilirubin AST ALT Alkaline Phosphatase Lactate Dehydrogenase C-Reactive Protein Total Protein Albumin Triglycerides Arterial Blood Glucose Arterial Blood Ionized Calcium Ur Specific [place] Vancomycin Trough Coronavirus (PCR) 11/19/20 11/19/20 11/19/20 05:35 07:40 12:39 WBC RBC Hgb Hct RDW Plt Count Lymph % (Auto) [place] % (Auto) Lymph # (Auto) [place] # (Auto) Baso # (Auto) Seg Neutrophils % Seg Neuts % (Manual) Lymphocytes % (Manual) Seg Neutrophils # Seg Neutrophils # Man Lymphocytes # (Manual) D-Dimer ABG pH POC ABG pCO2 POC ABG pO2 ABG pO2 ABG HCO3 ABG O2 Saturation ABG Base Excess ABG Hemoglobin ABG Oxyhemoglobin ABG Sodium ABG Potassium ABG Chloride ABG Glucose Oxyhemoglobin Carboxyhemoglobin Sodium 132 L Potassium Chloride Carbon Dioxide BUN 25 H Creatinine 0.5 L Glucose 179 H POC Glucose 149 H 306 H Hemoglobin A1c Lactic Acid Calcium 7.5 L Ferritin Total Bilirubin AST ALT Alkaline Phosphatase 139 H Lactate Dehydrogenase C-Reactive Protein Total Protein Albumin 2.4 L Triglycerides Arterial Blood Glucose Arterial Blood Ionized Calcium Ur Specific [place] Vancomycin Trough Coronavirus (PCR) 11/19/20 11/19/20 11/20/20 16:17 21:25 08:30 WBC RBC Hgb Hct RDW Plt Count Lymph % (Auto) [place] % (Auto) Lymph # (Auto) [place] # (Auto) Baso # (Auto) Seg Neutrophils % Seg Neuts % (Manual) Lymphocytes % (Manual) Seg Neutrophils # Seg Neutrophils # Man Lymphocytes # (Manual) D-Dimer ABG pH POC ABG pCO2 POC ABG pO2 ABG pO2 ABG HCO3 ABG O2 Saturation ABG Base Excess ABG Hemoglobin ABG Oxyhemoglobin ABG Sodium ABG Potassium ABG Chloride ABG Glucose Oxyhemoglobin Carboxyhemoglobin Sodium Potassium Chloride Carbon Dioxide BUN Creatinine Glucose POC Glucose 364 H 347 H 141 H Hemoglobin A1c Lactic Acid Calcium Ferritin Total Bilirubin AST ALT Alkaline Phosphatase Lactate Dehydrogenase C-Reactive Protein Total Protein Albumin Triglycerides Arterial Blood Glucose Arterial Blood Ionized Calcium Ur Specific [place] Vancomycin Trough Coronavirus (PCR) 11/20/20 11/20/20 11/20/20 08:50 11:32 16:19 WBC RBC Hgb Hct RDW Plt Count Lymph % (Auto) [place] % (Auto) Lymph # (Auto) [place] # (Auto) Baso # (Auto) Seg Neutrophils % Seg Neuts % (Manual) Lymphocytes % (Manual) Seg Neutrophils # Seg Neutrophils # Man Lymphocytes # (Manual) D-Dimer ABG pH POC ABG pCO2 POC ABG pO2 ABG pO2 ABG HCO3 ABG O2 Saturation ABG Base Excess ABG Hemoglobin ABG Oxyhemoglobin ABG Sodium ABG Potassium ABG Chloride ABG Glucose Oxyhemoglobin Carboxyhemoglobin Sodium 132 L Potassium Chloride 97.6 L Carbon Dioxide BUN 26 H Creatinine 0.5 L Glucose 201 H POC Glucose 296 H 327 H Hemoglobin A1c Lactic Acid Calcium 7.9 L Ferritin Total Bilirubin AST ALT Alkaline Phosphatase 137 H Lactate Dehydrogenase C-Reactive Protein Total Protein Albumin 2.6 L Triglycerides Arterial Blood Glucose Arterial Blood Ionized Calcium Ur Specific [place] Vancomycin Trough Coronavirus (PCR) 11/20/20 11/21/20 11/21/20 22:09 07:59 13:51 WBC RBC Hgb Hct RDW Plt Count Lymph % (Auto) [place] % (Auto) Lymph # (Auto) [place] # (Auto) Baso # (Auto) Seg Neutrophils % Seg Neuts % (Manual) Lymphocytes % (Manual) Seg Neutrophils # Seg Neutrophils # Man Lymphocytes # (Manual) D-Dimer ABG pH POC ABG pCO2 POC ABG pO2 ABG pO2 ABG HCO3 ABG O2 Saturation ABG Base Excess ABG Hemoglobin ABG Oxyhemoglobin ABG Sodium ABG Potassium ABG Chloride ABG Glucose Oxyhemoglobin Carboxyhemoglobin Sodium Potassium Chloride Carbon Dioxide BUN Creatinine Glucose POC Glucose 311 H 218 H 304 H Hemoglobin A1c Lactic Acid Calcium Ferritin Total Bilirubin AST ALT Alkaline Phosphatase Lactate Dehydrogenase C-Reactive Protein Total Protein Albumin Triglycerides Arterial Blood Glucose Arterial Blood Ionized Calcium Ur Specific [place] Vancomycin Trough Coronavirus (PCR) 11/21/20 11/21/20 11/21/20 16:09 21:34 23:00 WBC RBC Hgb Hct RDW Plt Count Lymph % (Auto) [place] % (Auto) Lymph # (Auto) [place] # (Auto) Baso # (Auto) Seg Neutrophils % Seg Neuts % (Manual) Lymphocytes % (Manual) Seg Neutrophils # Seg Neutrophils # Man Lymphocytes # (Manual) D-Dimer ABG pH 7.206 L POC ABG pCO2 59.3 H POC ABG pO2 76.7 L ABG pO2 ABG HCO3 ABG O2 Saturation ABG Base Excess ABG Hemoglobin ABG Oxyhemoglobin ABG Sodium 133.1 L ABG Potassium ABG Chloride ABG Glucose 320 H Oxyhemoglobin Carboxyhemoglobin Sodium Potassium Chloride Carbon Dioxide BUN Creatinine Glucose POC Glucose 239 H 279 H Hemoglobin A1c Lactic Acid Calcium Ferritin Total Bilirubin AST ALT Alkaline Phosphatase Lactate Dehydrogenase C-Reactive Protein Total Protein Albumin Triglycerides Arterial Blood Glucose 320 H Arterial Blood Ionized Calcium Ur Specific [place] Vancomycin Trough Coronavirus (PCR) 11/22/20 11/22/20 11/22/20 04:52 04:52 04:52 WBC RBC Hgb Hct RDW Plt Count Lymph % (Auto) [place] % (Auto) Lymph # (Auto) [place] # (Auto) Baso # (Auto) Seg Neutrophils % Seg Neuts % (Manual) Lymphocytes % (Manual) Seg Neutrophils # Seg Neutrophils # Man Lymphocytes # (Manual) D-Dimer 1858.36 H ABG pH POC ABG pCO2 POC ABG pO2 ABG pO2 ABG HCO3 ABG O2 Saturation ABG Base Excess ABG Hemoglobin ABG Oxyhemoglobin ABG Sodium ABG Potassium ABG Chloride ABG Glucose Oxyhemoglobin Carboxyhemoglobin Sodium Potassium Chloride Carbon Dioxide BUN Creatinine Glucose POC Glucose Hemoglobin A1c Lactic Acid Calcium Ferritin 734.2 H Total Bilirubin AST ALT Alkaline Phosphatase Lactate Dehydrogenase 404 H C-Reactive Protein 2.80 H Total Protein Albumin Triglycerides Arterial Blood Glucose Arterial Blood Ionized Calcium Ur Specific [place] Vancomycin Trough Coronavirus (PCR) 11/22/20 11/22/20 11/22/20 05:12 05:39 11:50 WBC RBC Hgb Hct RDW Plt Count Lymph % (Auto) [place] % (Auto) Lymph # (Auto) [place] # (Auto) Baso # (Auto) Seg Neutrophils % Seg Neuts % (Manual) Lymphocytes % (Manual) Seg Neutrophils # Seg Neutrophils # Man Lymphocytes # (Manual) D-Dimer ABG pH POC ABG pCO2 POC ABG pO2 51.0 L ABG pO2 ABG HCO3 ABG O2 Saturation ABG Base Excess ABG Hemoglobin ABG Oxyhemoglobin ABG Sodium 131.2 L ABG Potassium 4.6 H ABG Chloride ABG Glucose 317 H Oxyhemoglobin Carboxyhemoglobin Sodium Potassium Chloride Carbon Dioxide BUN Creatinine Glucose POC Glucose 340 H 417 H Hemoglobin A1c Lactic Acid Calcium Ferritin Total Bilirubin AST ALT Alkaline Phosphatase Lactate Dehydrogenase C-Reactive Protein Total Protein Albumin Triglycerides Arterial Blood Glucose 317 H Arterial Blood Ionized Calcium 4.4 L Ur Specific [place] Vancomycin Trough Coronavirus (PCR) 11/22/20 11/22/20 11/22/20 12:22 12:22 17:10 WBC 14.4 H RBC Hgb Hct RDW Plt Count Lymph % (Auto) [place] % (Auto) Lymph # (Auto) [place] # (Auto) Baso # (Auto) Seg Neutrophils % Seg Neuts % (Manual) 98.0 H Lymphocytes % (Manual) Seg Neutrophils # Seg Neutrophils # Man 14.1 H Lymphocytes # (Manual) 0.0 L D-Dimer ABG pH POC ABG pCO2 POC ABG pO2 ABG pO2 ABG HCO3 ABG O2 Saturation ABG Base Excess ABG Hemoglobin ABG Oxyhemoglobin ABG Sodium ABG Potassium ABG Chloride ABG Glucose Oxyhemoglobin Carboxyhemoglobin Sodium 132 L Potassium Chloride Carbon Dioxide BUN 36 H Creatinine 0.6 L Glucose 219 H POC Glucose 157 H Hemoglobin A1c Lactic Acid Calcium 7.2 L Ferritin Total Bilirubin AST ALT Alkaline Phosphatase Lactate Dehydrogenase C-Reactive Protein Total Protein Albumin Triglycerides Arterial Blood Glucose Arterial Blood Ionized Calcium Ur Specific [place] Vancomycin Trough Coronavirus (PCR) 11/22/20 11/22/20 11/22/20 18:33 21:44 23:47 WBC RBC Hgb Hct RDW Plt Count Lymph % (Auto) [place] % (Auto) Lymph # (Auto) [place] # (Auto) Baso # (Auto) Seg Neutrophils % Seg Neuts % (Manual) Lymphocytes % (Manual) Seg Neutrophils # Seg Neutrophils # Man Lymphocytes # (Manual) D-Dimer ABG pH POC ABG pCO2 POC ABG pO2 60.8 L ABG pO2 ABG HCO3 ABG O2 Saturation ABG Base Excess ABG Hemoglobin ABG Oxyhemoglobin 88.1 L ABG Sodium 135.1 L ABG Potassium ABG Chloride ABG Glucose 141 H Oxyhemoglobin Carboxyhemoglobin Sodium Potassium Chloride Carbon Dioxide BUN Creatinine Glucose POC Glucose 117 H 123 H Hemoglobin A1c Lactic Acid Calcium Ferritin Total Bilirubin AST ALT Alkaline Phosphatase Lactate Dehydrogenase C-Reactive Protein Total Protein Albumin Triglycerides Arterial Blood Glucose 141 H Arterial Blood Ionized Calcium Ur Specific [place] Vancomycin Trough Coronavirus (PCR) 11/23/20 11/23/20 11/23/20 04:00 04:00 05:23 WBC 14.4 H RBC Hgb Hct RDW Plt Count Lymph % (Auto) [place] % (Auto) Lymph # (Auto) [place] # (Auto) Baso # (Auto) Seg Neutrophils % Seg Neuts % (Manual) Lymphocytes % (Manual) Seg Neutrophils # Seg Neutrophils # Man Lymphocytes # (Manual) D-Dimer ABG pH POC ABG pCO2 POC ABG pO2 ABG pO2 ABG HCO3 ABG O2 Saturation ABG Base Excess ABG Hemoglobin ABG Oxyhemoglobin ABG Sodium ABG Potassium ABG Chloride ABG Glucose Oxyhemoglobin Carboxyhemoglobin Sodium 136 L Potassium Chloride Carbon Dioxide BUN 33 H Creatinine 0.6 L Glucose 115 H POC Glucose 173 H Hemoglobin A1c Lactic Acid Calcium 7.1 L Ferritin Total Bilirubin AST 64 H ALT 75 H Alkaline Phosphatase Lactate Dehydrogenase C-Reactive Protein Total Protein 5.9 L D Albumin 2.4 L Triglycerides Arterial Blood Glucose Arterial Blood Ionized Calcium Ur Specific [place] Vancomycin Trough Coronavirus (PCR) 11/23/20 11/23/20 11/23/20 05:40 11:27 17:10 WBC RBC Hgb Hct RDW Plt Count Lymph % (Auto) [place] % (Auto) Lymph # (Auto) [place] # (Auto) Baso # (Auto) Seg Neutrophils % Seg Neuts % (Manual) Lymphocytes % (Manual) Seg Neutrophils # Seg Neutrophils # Man Lymphocytes # (Manual) D-Dimer ABG pH POC ABG pCO2 POC ABG pO2 56.5 L ABG pO2 ABG HCO3 ABG O2 Saturation ABG Base Excess ABG Hemoglobin ABG Oxyhemoglobin ABG Sodium ABG Potassium ABG Chloride 109.0 H ABG Glucose 114 H Oxyhemoglobin Carboxyhemoglobin Sodium Potassium Chloride Carbon Dioxide BUN Creatinine Glucose POC Glucose 114 H 136 H Hemoglobin A1c Lactic Acid Calcium Ferritin Total Bilirubin AST ALT Alkaline Phosphatase Lactate Dehydrogenase C-Reactive Protein Total Protein Albumin Triglycerides Arterial Blood Glucose 114 H Arterial Blood Ionized Calcium 4.5 L Ur Specific [place] Vancomycin Trough Coronavirus (PCR) 11/24/20 11/24/20 11/24/20 05:14 05:14 05:14 WBC RBC Hgb Hct RDW Plt Count Lymph % (Auto) [place] % (Auto) Lymph # (Auto) [place] # (Auto) Baso # (Auto) Seg Neutrophils % Seg Neuts % (Manual) Lymphocytes % (Manual) Seg Neutrophils # Seg Neutrophils # Man Lymphocytes # (Manual) D-Dimer 1433.39 H ABG pH POC ABG pCO2 POC ABG pO2 ABG pO2 ABG HCO3 ABG O2 Saturation ABG Base Excess ABG Hemoglobin ABG Oxyhemoglobin ABG Sodium ABG Potassium ABG Chloride ABG Glucose Oxyhemoglobin Carboxyhemoglobin Sodium Potassium Chloride Carbon Dioxide BUN Creatinine Glucose POC Glucose Hemoglobin A1c Lactic Acid Calcium Ferritin 997.5 H Total Bilirubin AST ALT Alkaline Phosphatase Lactate Dehydrogenase 463 H C-Reactive Protein Total Protein Albumin Triglycerides Arterial Blood Glucose Arterial Blood Ionized Calcium Ur Specific [place] Vancomycin Trough Coronavirus (PCR) 11/24/20 11/24/20 11/24/20 05:31 05:36 12:05 WBC RBC Hgb Hct RDW Plt Count Lymph % (Auto) [place] % (Auto) Lymph # (Auto) [place] # (Auto) Baso # (Auto) Seg Neutrophils % Seg Neuts % (Manual) Lymphocytes % (Manual) Seg Neutrophils # Seg Neutrophils # Man Lymphocytes # (Manual) D-Dimer ABG pH POC ABG pCO2 POC ABG pO2 57.2 L ABG pO2 ABG HCO3 ABG O2 Saturation ABG Base Excess ABG Hemoglobin ABG Oxyhemoglobin ABG Sodium ABG Potassium ABG Chloride ABG Glucose 180 H Oxyhemoglobin Carboxyhemoglobin Sodium Potassium Chloride Carbon Dioxide BUN Creatinine Glucose POC Glucose 199 H 143 H Hemoglobin A1c Lactic Acid Calcium Ferritin Total Bilirubin AST ALT Alkaline Phosphatase Lactate Dehydrogenase C-Reactive Protein Total Protein Albumin Triglycerides Arterial Blood Glucose 180 H Arterial Blood Ionized Calcium 4.5 L Ur Specific [place] Vancomycin Trough Coronavirus (PCR) 11/24/20 11/24/20 11/24/20 12:14 17:47 23:47 WBC RBC Hgb Hct RDW Plt Count Lymph % (Auto) [place] % (Auto) Lymph # (Auto) [place] # (Auto) Baso # (Auto) Seg Neutrophils % Seg Neuts % (Manual) Lymphocytes % (Manual) Seg Neutrophils # Seg Neutrophils # Man Lymphocytes # (Manual) D-Dimer ABG pH 7.261 L POC ABG pCO2 59.7 H POC ABG pO2 75.7 L ABG pO2 ABG HCO3 ABG O2 Saturation ABG Base Excess ABG Hemoglobin ABG Oxyhemoglobin 92.5 L ABG Sodium ABG Potassium ABG Chloride 108.0 H ABG Glucose 150 H Oxyhemoglobin Carboxyhemoglobin Sodium Potassium Chloride Carbon Dioxide BUN Creatinine Glucose POC Glucose 223 H 179 H Hemoglobin A1c Lactic Acid Calcium Ferritin Total Bilirubin AST ALT Alkaline Phosphatase Lactate Dehydrogenase C-Reactive Protein Total Protein Albumin Triglycerides Arterial Blood Glucose 150 H Arterial Blood Ionized Calcium Ur Specific [place] Vancomycin Trough Coronavirus (PCR) 11/25/20 11/25/20 11/25/20 03:29 05:07 05:15 WBC 13.9 H RBC Hgb Hct RDW Plt Count Lymph % (Auto) [place] % (Auto) Lymph # (Auto) [place] # (Auto) Baso # (Auto) Seg Neutrophils % Seg Neuts % (Manual) 97.0 H Lymphocytes % (Manual) Seg Neutrophils # Seg Neutrophils # Man 13.5 H Lymphocytes # (Manual) 0.0 L D-Dimer ABG pH 7.272 L POC ABG pCO2 69.0 H POC ABG pO2 132.9 H ABG pO2 ABG HCO3 ABG O2 Saturation ABG Base Excess ABG Hemoglobin ABG Oxyhemoglobin ABG Sodium ABG Potassium ABG Chloride ABG Glucose 174 H Oxyhemoglobin Carboxyhemoglobin Sodium Potassium Chloride Carbon Dioxide BUN Creatinine Glucose POC Glucose 168 H Hemoglobin A1c Lactic Acid Calcium Ferritin Total Bilirubin AST ALT Alkaline Phosphatase Lactate Dehydrogenase C-Reactive Protein Total Protein Albumin Triglycerides Arterial Blood Glucose 174 H Arterial Blood Ionized Calcium Ur Specific [place] Vancomycin Trough Coronavirus (PCR) 11/25/20 11/25/20 11/25/20 05:15 11:25 17:35 WBC RBC Hgb Hct RDW Plt Count Lymph % (Auto) [place] % (Auto) Lymph # (Auto) [place] # (Auto) Baso # (Auto) Seg Neutrophils % Seg Neuts % (Manual) Lymphocytes % (Manual) Seg Neutrophils # Seg Neutrophils # Man Lymphocytes # (Manual) D-Dimer ABG pH POC ABG pCO2 POC ABG pO2 ABG pO2 ABG HCO3 ABG O2 Saturation ABG Base Excess ABG Hemoglobin ABG Oxyhemoglobin ABG Sodium ABG Potassium ABG Chloride ABG Glucose Oxyhemoglobin Carboxyhemoglobin Sodium Potassium Chloride Carbon Dioxide BUN 29 H Creatinine 0.5 L Glucose 161 H POC Glucose 224 H 228 H Hemoglobin A1c Lactic Acid Calcium 7.8 L Ferritin Total Bilirubin AST 89 H ALT 129 H Alkaline Phosphatase Lactate Dehydrogenase C-Reactive Protein Total Protein 5.8 L Albumin 2.5 L Triglycerides Arterial Blood Glucose Arterial Blood Ionized Calcium Ur Specific [place] Vancomycin Trough Coronavirus (PCR) 11/25/20 11/25/20 11/26/20 20:45 23:28 04:00 WBC RBC Hgb Hct RDW Plt Count Lymph % (Auto) [place] % (Auto) Lymph # (Auto) [place] # (Auto) Baso # (Auto) Seg Neutrophils % Seg Neuts % (Manual) Lymphocytes % (Manual) Seg Neutrophils # Seg Neutrophils # Man Lymphocytes # (Manual) D-Dimer ABG pH POC ABG pCO2 POC ABG pO2 ABG pO2 ABG HCO3 ABG O2 Saturation ABG Base Excess ABG Hemoglobin ABG Oxyhemoglobin ABG Sodium ABG Potassium ABG Chloride ABG Glucose Oxyhemoglobin Carboxyhemoglobin Sodium Potassium Chloride Carbon Dioxide BUN Creatinine Glucose POC Glucose 177 H 243 H Hemoglobin A1c Lactic Acid Calcium Ferritin 778.8 H Total Bilirubin AST ALT Alkaline Phosphatase Lactate Dehydrogenase C-Reactive Protein Total Protein Albumin Triglycerides Arterial Blood Glucose Arterial Blood Ionized Calcium Ur Specific [place] Vancomycin Trough Coronavirus (PCR) 11/26/20 11/26/20 11/26/20 04:00 05:34 06:04 WBC RBC Hgb Hct RDW Plt Count Lymph % (Auto) [place] % (Auto) Lymph # (Auto) [place] # (Auto) Baso # (Auto) Seg Neutrophils % Seg Neuts % (Manual) Lymphocytes % (Manual) Seg Neutrophils # Seg Neutrophils # Man Lymphocytes # (Manual) D-Dimer 926.11 H ABG pH POC ABG pCO2 POC ABG pO2 ABG pO2 ABG HCO3 ABG O2 Saturation ABG Base Excess ABG Hemoglobin ABG Oxyhemoglobin ABG Sodium ABG Potassium ABG Chloride ABG Glucose Oxyhemoglobin Carboxyhemoglobin Sodium Potassium Chloride Carbon Dioxide 39 H D BUN 30 H Creatinine 0.5 L Glucose 193 H POC Glucose 178 H Hemoglobin A1c Lactic Acid Calcium 7.7 L Ferritin Total Bilirubin AST 65 H ALT 132 H Alkaline Phosphatase Lactate Dehydrogenase 288 H C-Reactive Protein 1.40 H Total Protein 5.7 L Albumin 2.4 L Triglycerides Arterial Blood Glucose Arterial Blood Ionized Calcium Ur Specific [place] Vancomycin Trough Coronavirus (PCR) 11/26/20 11/26/20 11/26/20 06:04 08:47 11:20 WBC 12.4 H RBC Hgb Hct RDW Plt Count Lymph % (Auto) [place] % (Auto) Lymph # (Auto) [place] # (Auto) Baso # (Auto) Seg Neutrophils % Seg Neuts % (Manual) 98.0 H Lymphocytes % (Manual) 1.0 L Seg Neutrophils # Seg Neutrophils # Man 12.2 H Lymphocytes # (Manual) 0.1 L D-Dimer ABG pH POC ABG pCO2 75.2 H POC ABG pO2 61.9 L ABG pO2 ABG HCO3 ABG O2 Saturation ABG Base Excess ABG Hemoglobin ABG Oxyhemoglobin 90.3 L ABG Sodium ABG Potassium ABG Chloride ABG Glucose 243 H Oxyhemoglobin Carboxyhemoglobin Sodium Potassium Chloride Carbon Dioxide BUN Creatinine Glucose POC Glucose 255 H Hemoglobin A1c Lactic Acid Calcium Ferritin Total Bilirubin AST ALT Alkaline Phosphatase Lactate Dehydrogenase C-Reactive Protein Total Protein Albumin Triglycerides Arterial Blood Glucose 243 H Arterial Blood Ionized Calcium Ur Specific [place] Vancomycin Trough Coronavirus (PCR) 11/26/20 11/26/20 11/26/20 16:20 17:15 23:41 WBC RBC Hgb Hct RDW Plt Count Lymph % (Auto) [place] % (Auto) Lymph # (Auto) [place] # (Auto) Baso # (Auto) Seg Neutrophils % Seg Neuts % (Manual) Lymphocytes % (Manual) Seg Neutrophils # Seg Neutrophils # Man Lymphocytes # (Manual) D-Dimer ABG pH POC ABG pCO2 66.6 H POC ABG pO2 78.1 L ABG pO2 ABG HCO3 ABG O2 Saturation ABG Base Excess ABG Hemoglobin ABG Oxyhemoglobin ABG Sodium ABG Potassium ABG Chloride ABG Glucose 244 H Oxyhemoglobin Carboxyhemoglobin Sodium Potassium Chloride Carbon Dioxide BUN Creatinine Glucose POC Glucose 219 H 210 H Hemoglobin A1c Lactic Acid Calcium Ferritin Total Bilirubin AST ALT Alkaline Phosphatase Lactate Dehydrogenase C-Reactive Protein Total Protein Albumin Triglycerides Arterial Blood Glucose 244 H Arterial Blood Ionized Calcium Ur Specific [place] Vancomycin Trough Coronavirus (PCR) 11/27/20 11/27/20 11/27/20 04:46 05:38 06:25 WBC 13.8 H RBC Hgb Hct RDW Plt Count Lymph % (Auto) 2.0 L [place] % (Auto) Lymph # (Auto) 0.3 L [place] # (Auto) Baso # (Auto) Seg Neutrophils % Seg Neuts % (Manual) 96.0 H Lymphocytes % (Manual) Seg Neutrophils # 12.7 H Seg Neutrophils # Man 13.2 H Lymphocytes # (Manual) 0.0 L D-Dimer ABG pH POC ABG pCO2 63.0 H POC ABG pO2 53.6 L ABG pO2 ABG HCO3 ABG O2 Saturation ABG Base Excess ABG Hemoglobin ABG Oxyhemoglobin 87.8 L ABG Sodium 115.4 L ABG Potassium ABG Chloride ABG Glucose 219 H Oxyhemoglobin Carboxyhemoglobin Sodium Potassium Chloride Carbon Dioxide BUN Creatinine Glucose POC Glucose 227 H Hemoglobin A1c Lactic Acid Calcium Ferritin Total Bilirubin AST ALT Alkaline Phosphatase Lactate Dehydrogenase C-Reactive Protein Total Protein Albumin Triglycerides Arterial Blood Glucose 219 H Arterial Blood Ionized Calcium Ur Specific [place] Vancomycin Trough Coronavirus (PCR) 11/27/20 11/27/20 11/27/20 06:25 18:05 23:29 WBC RBC Hgb Hct RDW Plt Count Lymph % (Auto) [place] % (Auto) Lymph # (Auto) [place] # (Auto) Baso # (Auto) Seg Neutrophils % Seg Neuts % (Manual) Lymphocytes % (Manual) Seg Neutrophils # Seg Neutrophils # Man Lymphocytes # (Manual) D-Dimer ABG pH POC ABG pCO2 POC ABG pO2 ABG pO2 ABG HCO3 ABG O2 Saturation ABG Base Excess ABG Hemoglobin ABG Oxyhemoglobin ABG Sodium ABG Potassium ABG Chloride ABG Glucose Oxyhemoglobin Carboxyhemoglobin Sodium Potassium Chloride Carbon Dioxide 38 H BUN 34 H Creatinine 0.4 L Glucose 243 H POC Glucose 329 H 227 H Hemoglobin A1c Lactic Acid Calcium 7.9 L Ferritin Total Bilirubin AST 50 H ALT 110 H Alkaline Phosphatase Lactate Dehydrogenase C-Reactive Protein Total Protein 6.1 L Albumin 2.4 L Triglycerides Arterial Blood Glucose Arterial Blood Ionized Calcium Ur Specific [place] Vancomycin Trough Coronavirus (PCR) 11/28/20 11/28/20 11/28/20 03:45 03:45 03:46 WBC 12.2 H RBC Hgb Hct RDW Plt Count Lymph % (Auto) [place] % (Auto) Lymph # (Auto) [place] # (Auto) Baso # (Auto) Seg Neutrophils % Seg Neuts % (Manual) 93.0 H Lymphocytes % (Manual) 2.0 L Seg Neutrophils # Seg Neutrophils # Man 11.3 H Lymphocytes # (Manual) 0.2 L D-Dimer ABG pH POC ABG pCO2 68.4 H POC ABG pO2 55.4 L ABG pO2 ABG HCO3 ABG O2 Saturation ABG Base Excess ABG Hemoglobin ABG Oxyhemoglobin ABG Sodium ABG Potassium ABG Chloride ABG Glucose 197 H Oxyhemoglobin Carboxyhemoglobin Sodium Potassium Chloride Carbon Dioxide 36 H BUN 37 H Creatinine 0.4 L Glucose 194 H POC Glucose Hemoglobin A1c Lactic Acid Calcium 8.1 L Ferritin Total Bilirubin AST ALT 86 H Alkaline Phosphatase Lactate Dehydrogenase C-Reactive Protein Total Protein 6.0 L Albumin 2.3 L Triglycerides Arterial Blood Glucose 197 H Arterial Blood Ionized Calcium Ur Specific [place] Vancomycin Trough Coronavirus (PCR) 11/28/20 11/28/20 11/29/20 05:24 12:21 04:41 WBC RBC Hgb Hct RDW Plt Count Lymph % (Auto) [place] % (Auto) Lymph # (Auto) [place] # (Auto) Baso # (Auto) Seg Neutrophils % Seg Neuts % (Manual) Lymphocytes % (Manual) Seg Neutrophils # Seg Neutrophils # Man Lymphocytes # (Manual) D-Dimer ABG pH POC ABG pCO2 55.1 H POC ABG pO2 53.6 L ABG pO2 ABG HCO3 ABG O2 Saturation ABG Base Excess ABG Hemoglobin ABG Oxyhemoglobin 87.1 L ABG Sodium 131.2 L ABG Potassium ABG Chloride ABG Glucose 164 H Oxyhemoglobin Carboxyhemoglobin Sodium Potassium Chloride Carbon Dioxide BUN Creatinine Glucose POC Glucose 173 H 126 H Hemoglobin A1c Lactic Acid Calcium Ferritin Total Bilirubin AST ALT Alkaline Phosphatase Lactate Dehydrogenase C-Reactive Protein Total Protein Albumin Triglycerides Arterial Blood Glucose 164 H Arterial Blood Ionized Calcium 4.4 L Ur Specific [place] Vancomycin Trough Coronavirus (PCR) 11/29/20 11/29/20 11/29/20 05:29 12:41 13:28 WBC RBC Hgb Hct RDW Plt Count Lymph % (Auto) [place] % (Auto) Lymph # (Auto) [place] # (Auto) Baso # (Auto) Seg Neutrophils % Seg Neuts % (Manual) Lymphocytes % (Manual) Seg Neutrophils # Seg Neutrophils # Man Lymphocytes # (Manual) D-Dimer ABG pH POC ABG pCO2 POC ABG pO2 ABG pO2 ABG HCO3 ABG O2 Saturation ABG Base Excess ABG Hemoglobin ABG Oxyhemoglobin ABG Sodium ABG Potassium ABG Chloride ABG Glucose Oxyhemoglobin Carboxyhemoglobin Sodium Potassium Chloride Carbon Dioxide 40 H BUN 32 H Creatinine 0.4 L Glucose 274 H POC Glucose 173 H 257 H Hemoglobin A1c Lactic Acid Calcium 7.2 L Ferritin Total Bilirubin AST 57 H ALT 102 H Alkaline Phosphatase Lactate Dehydrogenase C-Reactive Protein Total Protein 5.7 L Albumin 2.1 L Triglycerides Arterial Blood Glucose Arterial Blood Ionized Calcium Ur Specific [place] Vancomycin Trough Coronavirus (PCR) 11/29/20 11/29/20 11/29/20 15:40 17:36 21:26 WBC RBC Hgb Hct RDW Plt Count Lymph % (Auto) [place] % (Auto) Lymph # (Auto) [place] # (Auto) Baso # (Auto) Seg Neutrophils % Seg Neuts % (Manual) Lymphocytes % (Manual) Seg Neutrophils # Seg Neutrophils # Man Lymphocytes # (Manual) D-Dimer ABG pH POC ABG pCO2 POC ABG pO2 ABG pO2 ABG HCO3 ABG O2 Saturation ABG Base Excess ABG Hemoglobin ABG Oxyhemoglobin ABG Sodium ABG Potassium ABG Chloride ABG Glucose Oxyhemoglobin Carboxyhemoglobin Sodium Potassium Chloride Carbon Dioxide BUN Creatinine Glucose POC Glucose 240 H 244 H Hemoglobin A1c Lactic Acid Calcium Ferritin Total Bilirubin AST ALT Alkaline Phosphatase Lactate Dehydrogenase C-Reactive Protein Total Protein Albumin Triglycerides Arterial Blood Glucose Arterial Blood Ionized Calcium Ur Specific [place] Vancomycin Trough 4.0 L Coronavirus (PCR) 11/29/20 11/30/20 11/30/20 23:26 03:30 03:30 WBC RBC Hgb Hct RDW Plt Count Lymph % (Auto) [place] % (Auto) Lymph # (Auto) [place] # (Auto) Baso # (Auto) Seg Neutrophils % Seg Neuts % (Manual) 97.0 H Lymphocytes % (Manual) 1.0 L Seg Neutrophils # Seg Neutrophils # Man 9.9 H Lymphocytes # (Manual) 0.1 L D-Dimer ABG pH POC ABG pCO2 POC ABG pO2 ABG pO2 ABG HCO3 ABG O2 Saturation ABG Base Excess ABG Hemoglobin ABG Oxyhemoglobin ABG Sodium ABG Potassium ABG Chloride ABG Glucose Oxyhemoglobin Carboxyhemoglobin Sodium Potassium Chloride Carbon Dioxide 38 H BUN 34 H Creatinine 0.4 L Glucose 305 H POC Glucose 283 H Hemoglobin A1c Lactic Acid Calcium 7.6 L Ferritin Total Bilirubin AST ALT 89 H Alkaline Phosphatase Lactate Dehydrogenase C-Reactive Protein Total Protein 6.0 L Albumin 2.3 L Triglycerides Arterial Blood Glucose Arterial Blood Ionized Calcium Ur Specific [place] Vancomycin Trough Coronavirus (PCR) 11/30/20 11/30/20 11/30/20 03:57 05:22 12:05 WBC RBC Hgb Hct RDW Plt Count Lymph % (Auto) [place] % (Auto) Lymph # (Auto) [place] # (Auto) Baso # (Auto) Seg Neutrophils % Seg Neuts % (Manual) Lymphocytes % (Manual) Seg Neutrophils # Seg Neutrophils # Man Lymphocytes # (Manual) D-Dimer ABG pH POC ABG pCO2 60.8 H POC ABG pO2 51.1 L ABG pO2 ABG HCO3 ABG O2 Saturation ABG Base Excess ABG Hemoglobin ABG Oxyhemoglobin 84.6 L ABG Sodium ABG Potassium ABG Chloride ABG Glucose 315 H Oxyhemoglobin Carboxyhemoglobin Sodium Potassium Chloride Carbon Dioxide BUN Creatinine Glucose POC Glucose 295 H 413 H Hemoglobin A1c Lactic Acid Calcium Ferritin Total Bilirubin AST ALT Alkaline Phosphatase Lactate Dehydrogenase C-Reactive Protein Total Protein Albumin Triglycerides Arterial Blood Glucose 315 H Arterial Blood Ionized Calcium 4.5 L Ur Specific [place] Vancomycin Trough Coronavirus (PCR) 11/30/20 11/30/20 12/01/20 17:24 23:25 02:14 WBC RBC Hgb Hct RDW Plt Count Lymph % (Auto) [place] % (Auto) Lymph # (Auto) [place] # (Auto) Baso # (Auto) Seg Neutrophils % Seg Neuts % (Manual) Lymphocytes % (Manual) Seg Neutrophils # Seg Neutrophils # Man Lymphocytes # (Manual) D-Dimer ABG pH 7.278 L POC ABG pCO2 78.1 H POC ABG pO2 79.5 L ABG pO2 ABG HCO3 ABG O2 Saturation ABG Base Excess ABG Hemoglobin 11.6 L ABG Oxyhemoglobin ABG Sodium 134.5 L ABG Potassium 4.6 H ABG Chloride ABG Glucose 286 H Oxyhemoglobin Carboxyhemoglobin Sodium Potassium Chloride Carbon Dioxide BUN Creatinine Glucose POC Glucose 305 H 302 H Hemoglobin A1c Lactic Acid Calcium Ferritin Total Bilirubin AST ALT Alkaline Phosphatase Lactate Dehydrogenase C-Reactive Protein Total Protein Albumin Triglycerides Arterial Blood Glucose 286 H Arterial Blood Ionized Calcium Ur Specific [place] Vancomycin Trough Coronavirus (PCR) 12/01/20 12/01/20 12/01/20 03:35 03:35 05:22 WBC 13.4 H RBC 3.54 L Hgb 10.4 L Hct 31.8 L RDW Plt Count Lymph % (Auto) [place] % (Auto) Lymph # (Auto) [place] # (Auto) Baso # (Auto) Seg Neutrophils % Seg Neuts % (Manual) 95.0 H Lymphocytes % (Manual) 3.0 L Seg Neutrophils # Seg Neutrophils # Man 12.7 H Lymphocytes # (Manual) 0.4 L D-Dimer ABG pH POC ABG pCO2 POC ABG pO2 ABG pO2 ABG HCO3 ABG O2 Saturation ABG Base Excess ABG Hemoglobin ABG Oxyhemoglobin ABG Sodium ABG Potassium ABG Chloride ABG Glucose Oxyhemoglobin Carboxyhemoglobin Sodium Potassium Chloride Carbon Dioxide 35 H BUN 34 H Creatinine 0.5 L Glucose 279 H POC Glucose 259 H Hemoglobin A1c Lactic Acid Calcium 7.6 L Ferritin Total Bilirubin AST ALT 63 H Alkaline Phosphatase Lactate Dehydrogenase C-Reactive Protein Total Protein 4.8 L Albumin 2.1 L Triglycerides Arterial Blood Glucose Arterial Blood Ionized Calcium Ur Specific [place] Vancomycin Trough Coronavirus (PCR) 12/01/20 12/01/20 12/01/20 12:05 17:40 23:46 WBC RBC Hgb Hct RDW Plt Count Lymph % (Auto) [place] % (Auto) Lymph # (Auto) [place] # (Auto) Baso # (Auto) Seg Neutrophils % Seg Neuts % (Manual) Lymphocytes % (Manual) Seg Neutrophils # Seg Neutrophils # Man Lymphocytes # (Manual) D-Dimer ABG pH POC ABG pCO2 POC ABG pO2 ABG pO2 ABG HCO3 ABG O2 Saturation ABG Base Excess ABG Hemoglobin ABG Oxyhemoglobin ABG Sodium ABG Potassium ABG Chloride ABG Glucose Oxyhemoglobin Carboxyhemoglobin Sodium Potassium Chloride Carbon Dioxide BUN Creatinine Glucose POC Glucose 197 H 244 H 284 H Hemoglobin A1c Lactic Acid Calcium Ferritin Total Bilirubin AST ALT Alkaline Phosphatase Lactate Dehydrogenase C-Reactive Protein Total Protein Albumin Triglycerides Arterial Blood Glucose Arterial Blood Ionized Calcium Ur Specific [place] Vancomycin Trough Coronavirus (PCR) 12/02/20 12/02/20 12/02/20 02:14 03:03 04:11 WBC 16.5 H RBC 3.55 L Hgb 10.5 L Hct 31.9 L RDW Plt Count Lymph % (Auto) [place] % (Auto) Lymph # (Auto) [place] # (Auto) Baso # (Auto) Seg Neutrophils % Seg Neuts % (Manual) 90.0 H Lymphocytes % (Manual) 3.0 L Seg Neutrophils # Seg Neutrophils # Man 14.9 H Lymphocytes # (Manual) 0.5 L D-Dimer ABG pH POC ABG pCO2 74.8 H POC ABG pO2 58.9 L ABG pO2 ABG HCO3 ABG O2 Saturation ABG Base Excess ABG Hemoglobin 11.5 L ABG Oxyhemoglobin ABG Sodium ABG Potassium ABG Chloride ABG Glucose 264 H Oxyhemoglobin Carboxyhemoglobin Sodium Potassium Chloride Carbon Dioxide 37 H BUN 30 H Creatinine 0.4 L Glucose 245 H POC Glucose Hemoglobin A1c Lactic Acid Calcium 7.5 L Ferritin Total Bilirubin AST ALT Alkaline Phosphatase Lactate Dehydrogenase C-Reactive Protein Total Protein 5.2 L Albumin 2.2 L Triglycerides Arterial Blood Glucose 264 H Arterial Blood Ionized Calcium 4.5 L Ur Specific [place] Vancomycin Trough Coronavirus (PCR) 12/02/20 12/02/20 12/02/20 05:19 11:46 17:52 WBC RBC Hgb Hct RDW Plt Count Lymph % (Auto) [place] % (Auto) Lymph # (Auto) [place] # (Auto) Baso # (Auto) Seg Neutrophils % Seg Neuts % (Manual) Lymphocytes % (Manual) Seg Neutrophils # Seg Neutrophils # Man Lymphocytes # (Manual) D-Dimer ABG pH POC ABG pCO2 POC ABG pO2 ABG pO2 ABG HCO3 ABG O2 Saturation ABG Base Excess ABG Hemoglobin ABG Oxyhemoglobin ABG Sodium ABG Potassium ABG Chloride ABG Glucose Oxyhemoglobin Carboxyhemoglobin Sodium Potassium Chloride Carbon Dioxide BUN Creatinine Glucose POC Glucose 238 H 236 H 233 H Hemoglobin A1c Lactic Acid Calcium Ferritin Total Bilirubin AST ALT Alkaline Phosphatase Lactate Dehydrogenase C-Reactive Protein Total Protein Albumin Triglycerides Arterial Blood Glucose Arterial Blood Ionized Calcium Ur Specific [place] Vancomycin Trough Coronavirus (PCR) 12/02/20 12/03/20 12/03/20 23:23 03:21 04:35 WBC RBC Hgb Hct RDW Plt Count 112 L Lymph % (Auto) [place] % (Auto) Lymph # (Auto) [place] # (Auto) Baso # (Auto) Seg Neutrophils % Seg Neuts % (Manual) 93.0 H Lymphocytes % (Manual) 4.0 L Seg Neutrophils # Seg Neutrophils # Man 9.1 H Lymphocytes # (Manual) 0.4 L D-Dimer ABG pH 7.299 L POC ABG pCO2 82.1 H POC ABG pO2 62.4 L ABG pO2 ABG HCO3 ABG O2 Saturation ABG Base Excess ABG Hemoglobin 11.5 L ABG Oxyhemoglobin 89.6 L ABG Sodium 134.3 L ABG Potassium ABG Chloride 95.0 L ABG Glucose 203 H Oxyhemoglobin Carboxyhemoglobin Sodium Potassium Chloride Carbon Dioxide BUN Creatinine Glucose POC Glucose 213 H Hemoglobin A1c Lactic Acid Calcium Ferritin Total Bilirubin AST ALT Alkaline Phosphatase Lactate Dehydrogenase C-Reactive Protein Total Protein Albumin Triglycerides Arterial Blood Glucose 203 H Arterial Blood Ionized Calcium 4.5 L Ur Specific [place] Vancomycin Trough Coronavirus (PCR) 12/03/20 12/03/20 12/03/20 04:35 05:42 11:28 WBC RBC Hgb Hct RDW Plt Count Lymph % (Auto) [place] % (Auto) Lymph # (Auto) [place] # (Auto) Baso # (Auto) Seg Neutrophils % Seg Neuts % (Manual) Lymphocytes % (Manual) Seg Neutrophils # Seg Neutrophils # Man Lymphocytes # (Manual) D-Dimer ABG pH POC ABG pCO2 POC ABG pO2 ABG pO2 ABG HCO3 ABG O2 Saturation ABG Base Excess ABG Hemoglobin ABG Oxyhemoglobin ABG Sodium ABG Potassium ABG Chloride ABG Glucose Oxyhemoglobin Carboxyhemoglobin Sodium Potassium Chloride 97.8 L Carbon Dioxide 43 H* BUN 25 H Creatinine 0.3 L Glucose 214 H POC Glucose 193 H 211 H Hemoglobin A1c Lactic Acid Calcium 7.7 L Ferritin Total Bilirubin AST ALT 63 H Alkaline Phosphatase 132 H Lactate Dehydrogenase C-Reactive Protein Total Protein 5.1 L Albumin 2.4 L Triglycerides Arterial Blood Glucose Arterial Blood Ionized Calcium Ur Specific [place] Vancomycin Trough Coronavirus (PCR) 12/03/20 12/03/20 12/04/20 17:45 23:57 00:11 WBC RBC Hgb Hct RDW Plt Count Lymph % (Auto) [place] % (Auto) Lymph # (Auto) [place] # (Auto) Baso # (Auto) Seg Neutrophils % Seg Neuts % (Manual) Lymphocytes % (Manual) Seg Neutrophils # Seg Neutrophils # Man Lymphocytes # (Manual) D-Dimer ABG pH POC ABG pCO2 POC ABG pO2 ABG pO2 ABG HCO3 ABG O2 Saturation ABG Base Excess ABG Hemoglobin ABG Oxyhemoglobin ABG Sodium ABG Potassium ABG Chloride ABG Glucose Oxyhemoglobin Carboxyhemoglobin Sodium Potassium Chloride Carbon Dioxide BUN Creatinine Glucose POC Glucose 231 H 240 H 239 H Hemoglobin A1c Lactic Acid Calcium Ferritin Total Bilirubin AST ALT Alkaline Phosphatase Lactate Dehydrogenase C-Reactive Protein Total Protein Albumin Triglycerides Arterial Blood Glucose Arterial Blood Ionized Calcium Ur Specific [place] Vancomycin Trough Coronavirus (PCR) 12/04/20 12/04/20 12/04/20 04:00 05:20 05:34 WBC RBC Hgb Hct RDW Plt Count Lymph % (Auto) [place] % (Auto) Lymph # (Auto) [place] # (Auto) Baso # (Auto) Seg Neutrophils % Seg Neuts % (Manual) Lymphocytes % (Manual) Seg Neutrophils # Seg Neutrophils # Man Lymphocytes # (Manual) D-Dimer ABG pH POC ABG pCO2 84.4 H POC ABG pO2 68.0 L ABG pO2 ABG HCO3 ABG O2 Saturation ABG Base Excess ABG Hemoglobin 11.6 L ABG Oxyhemoglobin ABG Sodium 130.9 L ABG Potassium ABG Chloride 90.0 L ABG Glucose 244 H Oxyhemoglobin Carboxyhemoglobin Sodium Potassium Chloride Carbon Dioxide BUN Creatinine Glucose POC Glucose 241 H 213 H Hemoglobin A1c Lactic Acid Calcium Ferritin Total Bilirubin AST ALT Alkaline Phosphatase Lactate Dehydrogenase C-Reactive Protein Total Protein Albumin Triglycerides Arterial Blood Glucose 244 H Arterial Blood Ionized Calcium 4.4 L Ur Specific [place] Vancomycin Trough Coronavirus (PCR) 12/04/20 12/04/20 12/04/20 11:36 16:53 23:32 WBC RBC Hgb Hct RDW Plt Count Lymph % (Auto) [place] % (Auto) Lymph # (Auto) [place] # (Auto) Baso # (Auto) Seg Neutrophils % Seg Neuts % (Manual) Lymphocytes % (Manual) Seg Neutrophils # Seg Neutrophils # Man Lymphocytes # (Manual) D-Dimer ABG pH POC ABG pCO2 POC ABG pO2 ABG pO2 ABG HCO3 ABG O2 Saturation ABG Base Excess ABG Hemoglobin ABG Oxyhemoglobin ABG Sodium ABG Potassium ABG Chloride ABG Glucose Oxyhemoglobin Carboxyhemoglobin Sodium Potassium Chloride Carbon Dioxide BUN Creatinine Glucose POC Glucose 196 H 127 H 230 H Hemoglobin A1c Lactic Acid Calcium Ferritin Total Bilirubin AST ALT Alkaline Phosphatase Lactate Dehydrogenase C-Reactive Protein Total Protein Albumin Triglycerides Arterial Blood Glucose Arterial Blood Ionized Calcium Ur Specific [place] Vancomycin Trough Coronavirus (PCR) 12/04/20 12/05/20 12/05/20 Unknown 04:16 05:21 WBC RBC Hgb Hct RDW Plt Count Lymph % (Auto) [place] % (Auto) Lymph # (Auto) [place] # (Auto) Baso # (Auto) Seg Neutrophils % Seg Neuts % (Manual) Lymphocytes % (Manual) Seg Neutrophils # Seg Neutrophils # Man Lymphocytes # (Manual) D-Dimer ABG pH POC ABG pCO2 86.7 H POC ABG pO2 58.0 L ABG pO2 ABG HCO3 ABG O2 Saturation ABG Base Excess ABG Hemoglobin 11.6 L ABG Oxyhemoglobin 89 L ABG Sodium 130.1 L ABG Potassium 4.9 H ABG Chloride 89.0 L ABG Glucose 254 H Oxyhemoglobin Carboxyhemoglobin Sodium 136 L Potassium Chloride 90.0 L Carbon Dioxide 46 H* BUN 24 H Creatinine 0.3 L Glucose 226 H POC Glucose 213 H Hemoglobin A1c Lactic Acid Calcium 7.6 L Ferritin Total Bilirubin AST 46 H ALT 78 H Alkaline Phosphatase 172 H Lactate Dehydrogenase C-Reactive Protein Total Protein 6.0 L Albumin 2.8 L Triglycerides 156 H Arterial Blood Glucose 254 H Arterial Blood Ionized Calcium 4.4 L Ur Specific [place] Vancomycin Trough Coronavirus (PCR) 12/05/20 12/05/20 12/05/20 11:22 17:26 23:38 WBC RBC Hgb Hct RDW Plt Count Lymph % (Auto) [place] % (Auto) Lymph # (Auto) [place] # (Auto) Baso # (Auto) Seg Neutrophils % Seg Neuts % (Manual) Lymphocytes % (Manual) Seg Neutrophils # Seg Neutrophils # Man Lymphocytes # (Manual) D-Dimer ABG pH POC ABG pCO2 POC ABG pO2 ABG pO2 ABG HCO3 ABG O2 Saturation ABG Base Excess ABG Hemoglobin ABG Oxyhemoglobin ABG Sodium ABG Potassium ABG Chloride ABG Glucose Oxyhemoglobin Carboxyhemoglobin Sodium Potassium Chloride Carbon Dioxide BUN Creatinine Glucose POC Glucose 212 H 157 H 204 H Hemoglobin A1c Lactic Acid Calcium Ferritin Total Bilirubin AST ALT Alkaline Phosphatase Lactate Dehydrogenase C-Reactive Protein Total Protein Albumin Triglycerides Arterial Blood Glucose Arterial Blood Ionized Calcium Ur Specific [place] Vancomycin Trough Coronavirus (PCR) 12/06/20 12/06/20 12/06/20 04:31 04:31 05:12 WBC 17.0 H RBC 3.63 L Hgb 10.8 L D Hct 32.6 L D RDW Plt Count Lymph % (Auto) [place] % (Auto) Lymph # (Auto) [place] # (Auto) Baso # (Auto) Seg Neutrophils % Seg Neuts % (Manual) Lymphocytes % (Manual) Seg Neutrophils # Seg Neutrophils # Man Lymphocytes # (Manual) D-Dimer ABG pH POC ABG pCO2 85.9 H POC ABG pO2 57.6 L ABG pO2 ABG HCO3 ABG O2 Saturation ABG Base Excess ABG Hemoglobin ABG Oxyhemoglobin ABG Sodium 131.2 L ABG Potassium 4.8 H ABG Chloride 86.0 L ABG Glucose 200 H Oxyhemoglobin Carboxyhemoglobin Sodium 134 L Potassium 5.1 H Chloride 88.4 L Carbon Dioxide 47 H* BUN 23 H Creatinine 0.3 L Glucose 206 H POC Glucose Hemoglobin A1c Lactic Acid Calcium 8.3 L Ferritin Total Bilirubin AST 48 H ALT 91 H Alkaline Phosphatase 140 H Lactate Dehydrogenase C-Reactive Protein Total Protein 5.7 L Albumin 2.6 L Triglycerides Arterial Blood Glucose 200 H Arterial Blood Ionized Calcium 4.4 L Ur Specific [place] Vancomycin Trough Coronavirus (PCR) 12/06/20 12/06/20 12/06/20 05:24 12:18 16:45 WBC RBC Hgb Hct RDW Plt Count Lymph % (Auto) [place] % (Auto) Lymph # (Auto) [place] # (Auto) Baso # (Auto) Seg Neutrophils % Seg Neuts % (Manual) Lymphocytes % (Manual) Seg Neutrophils # Seg Neutrophils # Man Lymphocytes # (Manual) D-Dimer ABG pH POC ABG pCO2 POC ABG pO2 ABG pO2 ABG HCO3 ABG O2 Saturation ABG Base Excess ABG Hemoglobin ABG Oxyhemoglobin ABG Sodium ABG Potassium ABG Chloride ABG Glucose Oxyhemoglobin Carboxyhemoglobin Sodium Potassium Chloride Carbon Dioxide BUN Creatinine Glucose POC Glucose 186 H 187 H 150 H Hemoglobin A1c Lactic Acid Calcium Ferritin Total Bilirubin AST ALT Alkaline Phosphatase Lactate Dehydrogenase C-Reactive Protein Total Protein Albumin Triglycerides Arterial Blood Glucose Arterial Blood Ionized Calcium Ur Specific [place] Vancomycin Trough Coronavirus (PCR) 12/06/20 12/07/20 12/07/20 23:43 05:20 05:21 WBC RBC Hgb Hct RDW Plt Count Lymph % (Auto) [place] % (Auto) Lymph # (Auto) [place] # (Auto) Baso # (Auto) Seg Neutrophils % Seg Neuts % (Manual) Lymphocytes % (Manual) Seg Neutrophils # Seg Neutrophils # Man Lymphocytes # (Manual) D-Dimer ABG pH POC ABG pCO2 POC ABG pO2 ABG pO2 48.4 L ABG HCO3 50.8 H ABG O2 Saturation 86.2 L ABG Base Excess 22.4 H ABG Hemoglobin 11.0 L ABG Oxyhemoglobin ABG Sodium ABG Potassium ABG Chloride ABG Glucose Oxyhemoglobin 84.0 L Carboxyhemoglobin Sodium Potassium Chloride Carbon Dioxide BUN Creatinine Glucose POC Glucose 153 H 107 H Hemoglobin A1c Lactic Acid Calcium Ferritin Total Bilirubin AST ALT Alkaline Phosphatase Lactate Dehydrogenase C-Reactive Protein Total Protein Albumin Triglycerides Arterial Blood Glucose Arterial Blood Ionized Calcium Ur Specific [place] Vancomycin Trough Coronavirus (PCR) 12/07/20 12/07/20 12/07/20 13:20 14:28 17:35 WBC RBC Hgb Hct RDW Plt Count Lymph % (Auto) [place] % (Auto) Lymph # (Auto) [place] # (Auto) Baso # (Auto) Seg Neutrophils % Seg Neuts % (Manual) Lymphocytes % (Manual) Seg Neutrophils # Seg Neutrophils # Man Lymphocytes # (Manual) D-Dimer ABG pH POC ABG pCO2 74.1 H POC ABG pO2 68.5 L ABG pO2 ABG HCO3 ABG O2 Saturation ABG Base Excess ABG Hemoglobin 10.7 L ABG Oxyhemoglobin 91.9 L ABG Sodium 132.2 L ABG Potassium 4.7 H ABG Chloride 88.0 L ABG Glucose 138 H Oxyhemoglobin Carboxyhemoglobin Sodium 134 L Potassium Chloride 87.4 L Carbon Dioxide 49 H* BUN Creatinine 0.2 L Glucose 132 H POC Glucose 176 H Hemoglobin A1c Lactic Acid Calcium 7.7 L Ferritin Total Bilirubin AST ALT Alkaline Phosphatase Lactate Dehydrogenase C-Reactive Protein Total Protein Albumin Triglycerides Arterial Blood Glucose 138 H Arterial Blood Ionized Calcium 4.0 L Ur Specific [place] Vancomycin Trough Coronavirus (PCR) 12/07/20 12/08/20 12/08/20 23:44 04:12 05:29 WBC RBC Hgb Hct RDW Plt Count Lymph % (Auto) [place] % (Auto) Lymph # (Auto) [place] # (Auto) Baso # (Auto) Seg Neutrophils % Seg Neuts % (Manual) Lymphocytes % (Manual) Seg Neutrophils # Seg Neutrophils # Man Lymphocytes # (Manual) D-Dimer ABG pH POC ABG pCO2 POC ABG pO2 ABG pO2 69.7 L ABG HCO3 50.1 H ABG O2 Saturation ABG Base Excess 21.6 H ABG Hemoglobin 10.9 L ABG Oxyhemoglobin ABG Sodium ABG Potassium ABG Chloride ABG Glucose Oxyhemoglobin 93.2 L Carboxyhemoglobin Sodium Potassium Chloride Carbon Dioxide BUN Creatinine Glucose POC Glucose 143 H 143 H Hemoglobin A1c Lactic Acid Calcium Ferritin Total Bilirubin AST ALT Alkaline Phosphatase Lactate Dehydrogenase C-Reactive Protein Total Protein Albumin Triglycerides Arterial Blood Glucose Arterial Blood Ionized Calcium Ur Specific [place] Vancomycin Trough Coronavirus (PCR) 12/08/20 12/08/20 12/09/20 06:10 06:10 04:24 WBC 12.0 H RBC 3.18 L Hgb 9.5 L Hct 28.9 L RDW Plt Count Lymph % (Auto) [place] % (Auto) Lymph # (Auto) [place] # (Auto) Baso # (Auto) Seg Neutrophils % Seg Neuts % (Manual) 95.0 H Lymphocytes % (Manual) 3.0 L Seg Neutrophils # Seg Neutrophils # Man 11.4 H Lymphocytes # (Manual) 0.4 L D-Dimer ABG pH POC ABG pCO2 76.2 H POC ABG pO2 52.8 L ABG pO2 ABG HCO3 ABG O2 Saturation ABG Base Excess ABG Hemoglobin 11.7 L ABG Oxyhemoglobin ABG Sodium 132.0 L ABG Potassium ABG Chloride 87.0 L ABG Glucose 118 H Oxyhemoglobin Carboxyhemoglobin Sodium 133 L Potassium Chloride 86.3 L Carbon Dioxide 53 H* BUN Creatinine 0.2 L Glucose 156 H POC Glucose Hemoglobin A1c Lactic Acid Calcium 7.6 L Ferritin Total Bilirubin AST ALT Alkaline Phosphatase Lactate Dehydrogenase C-Reactive Protein Total Protein Albumin Triglycerides Arterial Blood Glucose 118 H Arterial Blood Ionized Calcium 4.2 L Ur Specific [place] Vancomycin Trough Coronavirus (PCR) 12/09/20 12/09/20 12/09/20 05:44 06:40 06:40 WBC 13.5 H RBC 3.28 L Hgb 9.7 L Hct 29.9 L RDW Plt Count Lymph % (Auto) [place] % (Auto) Lymph # (Auto) [place] # (Auto) Baso # (Auto) Seg Neutrophils % Seg Neuts % (Manual) Lymphocytes % (Manual) Seg Neutrophils # Seg Neutrophils # Man Lymphocytes # (Manual) D-Dimer ABG pH POC ABG pCO2 POC ABG pO2 ABG pO2 ABG HCO3 ABG O2 Saturation ABG Base Excess ABG Hemoglobin ABG Oxyhemoglobin ABG Sodium ABG Potassium ABG Chloride ABG Glucose Oxyhemoglobin Carboxyhemoglobin Sodium 135 L Potassium Chloride 89.5 L Carbon Dioxide 52 H* BUN Creatinine 0.3 L Glucose 114 H POC Glucose 117 H Hemoglobin A1c Lactic Acid Calcium 7.6 L Ferritin Total Bilirubin AST ALT Alkaline Phosphatase Lactate Dehydrogenase C-Reactive Protein Total Protein Albumin Triglycerides Arterial Blood Glucose Arterial Blood Ionized Calcium Ur Specific [place] Vancomycin Trough Coronavirus (PCR) 12/09/20 12/09/20 12/10/20 16:42 21:11 04:28 WBC RBC Hgb Hct RDW Plt Count Lymph % (Auto) [place] % (Auto) Lymph # (Auto) [place] # (Auto) Baso # (Auto) Seg Neutrophils % Seg Neuts % (Manual) Lymphocytes % (Manual) Seg Neutrophils # Seg Neutrophils # Man Lymphocytes # (Manual) D-Dimer ABG pH POC ABG pCO2 72.5 H 69.4 H 76.9 H POC ABG pO2 50.4 L 80.6 L 60.2 L ABG pO2 ABG HCO3 ABG O2 Saturation ABG Base Excess ABG Hemoglobin 10.4 L 10.7 L 10 L ABG Oxyhemoglobin 84.3 L 89.7 L ABG Sodium 133.7 L 133.7 L 133.8 L ABG Potassium ABG Chloride 90.0 L 91.0 L 91.0 L ABG Glucose 116 H 96 H 57 L Oxyhemoglobin Carboxyhemoglobin 0.4 L Sodium Potassium Chloride Carbon Dioxide BUN Creatinine Glucose POC Glucose Hemoglobin A1c Lactic Acid Calcium Ferritin Total Bilirubin AST ALT Alkaline Phosphatase Lactate Dehydrogenase C-Reactive Protein Total Protein Albumin Triglycerides Arterial Blood Glucose 116 H 96 H 57 L Arterial Blood Ionized Calcium 4.2 L 4.3 L 4.2 L Ur Specific [place] Vancomycin Trough Coronavirus (PCR) 12/10/20 12/10/20 12/10/20 05:09 05:41 11:50 WBC RBC Hgb Hct RDW Plt Count Lymph % (Auto) [place] % (Auto) Lymph # (Auto) [place] # (Auto) Baso # (Auto) Seg Neutrophils % Seg Neuts % (Manual) Lymphocytes % (Manual) Seg Neutrophils # Seg Neutrophils # Man Lymphocytes # (Manual) D-Dimer ABG pH POC ABG pCO2 POC ABG pO2 ABG pO2 ABG HCO3 ABG O2 Saturation ABG Base Excess ABG Hemoglobin ABG Oxyhemoglobin ABG Sodium ABG Potassium ABG Chloride ABG Glucose Oxyhemoglobin Carboxyhemoglobin Sodium Potassium Chloride Carbon Dioxide BUN Creatinine Glucose POC Glucose 41 L 138 H 106 H Hemoglobin A1c Lactic Acid Calcium Ferritin Total Bilirubin AST ALT Alkaline Phosphatase Lactate Dehydrogenase C-Reactive Protein Total Protein Albumin Triglycerides Arterial Blood Glucose Arterial Blood Ionized Calcium Ur Specific [place] Vancomycin Trough Coronavirus (PCR) 12/10/20 12/10/20 12/11/20 17:34 23:25 04:06 WBC RBC Hgb Hct RDW Plt Count Lymph % (Auto) [place] % (Auto) Lymph # (Auto) [place] # (Auto) Baso # (Auto) Seg Neutrophils % Seg Neuts % (Manual) Lymphocytes % (Manual) Seg Neutrophils # Seg Neutrophils # Man Lymphocytes # (Manual) D-Dimer ABG pH POC ABG pCO2 71.0 H POC ABG pO2 56.8 L ABG pO2 ABG HCO3 ABG O2 Saturation ABG Base Excess ABG Hemoglobin 10.1 L ABG Oxyhemoglobin 88.5 L ABG Sodium 132.3 L ABG Potassium ABG Chloride 91.0 L ABG Glucose 168 H Oxyhemoglobin Carboxyhemoglobin Sodium Potassium Chloride Carbon Dioxide BUN Creatinine Glucose POC Glucose 121 H 167 H Hemoglobin A1c Lactic Acid Calcium Ferritin Total Bilirubin AST ALT Alkaline Phosphatase Lactate Dehydrogenase C-Reactive Protein Total Protein Albumin Triglycerides Arterial Blood Glucose 168 H Arterial Blood Ionized Calcium 4.1 L Ur Specific [place] Vancomycin Trough Coronavirus (PCR) 12/11/20 12/11/20 12/11/20 05:21 11:44 15:40 WBC RBC Hgb Hct RDW Plt Count Lymph % (Auto) [place] % (Auto) Lymph # (Auto) [place] # (Auto) Baso # (Auto) Seg Neutrophils % Seg Neuts % (Manual) Lymphocytes % (Manual) Seg Neutrophils # Seg Neutrophils # Man Lymphocytes # (Manual) D-Dimer ABG pH 7.454 H POC ABG pCO2 58.6 H POC ABG pO2 50.7 L ABG pO2 ABG HCO3 ABG O2 Saturation ABG Base Excess ABG Hemoglobin 10.1 L ABG Oxyhemoglobin 86.2 L ABG Sodium 131.2 L ABG Potassium ABG Chloride 92.0 L ABG Glucose 197 H Oxyhemoglobin Carboxyhemoglobin Sodium Potassium Chloride Carbon Dioxide BUN Creatinine Glucose POC Glucose 149 H 202 H Hemoglobin A1c Lactic Acid Calcium Ferritin Total Bilirubin AST ALT Alkaline Phosphatase Lactate Dehydrogenase C-Reactive Protein Total Protein Albumin Triglycerides Arterial Blood Glucose 197 H Arterial Blood Ionized Calcium 4.2 L Ur Specific [place] Vancomycin Trough Coronavirus (PCR) 12/11/20 12/11/20 12/12/20 17:09 23:16 05:09 WBC RBC Hgb Hct RDW Plt Count Lymph % (Auto) [place] % (Auto) Lymph # (Auto) [place] # (Auto) Baso # (Auto) Seg Neutrophils % Seg Neuts % (Manual) Lymphocytes % (Manual) Seg Neutrophils # Seg Neutrophils # Man Lymphocytes # (Manual) D-Dimer ABG pH POC ABG pCO2 63.1 H POC ABG pO2 62.6 L ABG pO2 ABG HCO3 ABG O2 Saturation ABG Base Excess ABG Hemoglobin 10.3 L ABG Oxyhemoglobin ABG Sodium 130.3 L ABG Potassium 4.6 H ABG Chloride 92.0 L ABG Glucose 215 H Oxyhemoglobin Carboxyhemoglobin Sodium Potassium Chloride Carbon Dioxide BUN Creatinine Glucose POC Glucose 181 H 192 H Hemoglobin A1c Lactic Acid Calcium Ferritin Total Bilirubin AST ALT Alkaline Phosphatase Lactate Dehydrogenase C-Reactive Protein Total Protein Albumin Triglycerides Arterial Blood Glucose 215 H Arterial Blood Ionized Calcium 4.4 L Ur Specific [place] Vancomycin Trough Coronavirus (PCR) 12/12/20 12/12/20 12/12/20 05:16 05:47 11:41 WBC RBC Hgb Hct RDW Plt Count Lymph % (Auto) [place] % (Auto) Lymph # (Auto) [place] # (Auto) Baso # (Auto) Seg Neutrophils % Seg Neuts % (Manual) Lymphocytes % (Manual) Seg Neutrophils # Seg Neutrophils # Man Lymphocytes # (Manual) D-Dimer ABG pH POC ABG pCO2 POC ABG pO2 ABG pO2 ABG HCO3 ABG O2 Saturation ABG Base Excess ABG Hemoglobin ABG Oxyhemoglobin ABG Sodium ABG Potassium ABG Chloride ABG Glucose Oxyhemoglobin Carboxyhemoglobin Sodium Potassium Chloride Carbon Dioxide BUN Creatinine Glucose POC Glucose 208 H 218 H Hemoglobin A1c Lactic Acid Calcium Ferritin Total Bilirubin AST ALT Alkaline Phosphatase Lactate Dehydrogenase C-Reactive Protein Total Protein Albumin Triglycerides 150 H Arterial Blood Glucose Arterial Blood Ionized Calcium Ur Specific [place] Vancomycin Trough Coronavirus (PCR) 12/12/20 12/12/20 12/13/20 17:05 23:18 03:36 WBC RBC Hgb Hct RDW Plt Count Lymph % (Auto) [place] % (Auto) Lymph # (Auto) [place] # (Auto) Baso # (Auto) Seg Neutrophils % Seg Neuts % (Manual) Lymphocytes % (Manual) Seg Neutrophils # Seg Neutrophils # Man Lymphocytes # (Manual) D-Dimer ABG pH POC ABG pCO2 61.5 H POC ABG pO2 77.6 L ABG pO2 ABG HCO3 ABG O2 Saturation ABG Base Excess ABG Hemoglobin 10.2 L ABG Oxyhemoglobin ABG Sodium 127.5 L ABG Potassium ABG Chloride 91.0 L ABG Glucose 232 H Oxyhemoglobin Carboxyhemoglobin Sodium Potassium Chloride Carbon Dioxide BUN Creatinine Glucose POC Glucose 187 H 176 H Hemoglobin A1c Lactic Acid Calcium Ferritin Total Bilirubin AST ALT Alkaline Phosphatase Lactate Dehydrogenase C-Reactive Protein Total Protein Albumin Triglycerides Arterial Blood Glucose 232 H Arterial Blood Ionized Calcium 4.2 L Ur Specific [place] Vancomycin Trough Coronavirus (PCR) 12/13/20 12/13/20 12/13/20 05:13 10:00 11:30 WBC RBC 3.50 L Hgb 10.5 L Hct 31.9 L RDW Plt Count Lymph % (Auto) [place] % (Auto) Lymph # (Auto) [place] # (Auto) Baso # (Auto) Seg Neutrophils % Seg Neuts % (Manual) 96.0 H Lymphocytes % (Manual) Seg Neutrophils # Seg Neutrophils # Man 9.2 H Lymphocytes # (Manual) 0.0 L D-Dimer ABG pH POC ABG pCO2 POC ABG pO2 ABG pO2 ABG HCO3 ABG O2 Saturation ABG Base Excess ABG Hemoglobin ABG Oxyhemoglobin ABG Sodium ABG Potassium ABG Chloride ABG Glucose Oxyhemoglobin Carboxyhemoglobin Sodium Potassium Chloride Carbon Dioxide BUN Creatinine Glucose POC Glucose 204 H Hemoglobin A1c Lactic Acid Calcium Ferritin Total Bilirubin AST ALT Alkaline Phosphatase Lactate Dehydrogenase C-Reactive Protein Total Protein Albumin Triglycerides Arterial Blood Glucose Arterial Blood Ionized Calcium Ur Specific [place] Vancomycin Trough Coronavirus (PCR) Positive A 12/13/20 12/13/20 12/13/20 11:30 12:01 18:04 WBC RBC Hgb Hct RDW Plt Count Lymph % (Auto) [place] % (Auto) Lymph # (Auto) [place] # (Auto) Baso # (Auto) Seg Neutrophils % Seg Neuts % (Manual) Lymphocytes % (Manual) Seg Neutrophils # Seg Neutrophils # Man Lymphocytes # (Manual) D-Dimer ABG pH POC ABG pCO2 POC ABG pO2 ABG pO2 ABG HCO3 ABG O2 Saturation ABG Base Excess ABG Hemoglobin ABG Oxyhemoglobin ABG Sodium ABG Potassium ABG Chloride ABG Glucose Oxyhemoglobin Carboxyhemoglobin Sodium 132 L Potassium Chloride 90.1 L Carbon Dioxide 41 H* D BUN Creatinine 0.2 L Glucose 249 H POC Glucose 224 H 172 H Hemoglobin A1c Lactic Acid Calcium 7.4 L Ferritin Total Bilirubin AST ALT 61 H Alkaline Phosphatase Lactate Dehydrogenase C-Reactive Protein Total Protein 5.7 L Albumin 2.3 L Triglycerides Arterial Blood Glucose Arterial Blood Ionized Calcium Ur Specific [place] Vancomycin Trough Coronavirus (PCR) 12/13/20 12/14/20 12/14/20 23:37 04:05 04:35 WBC RBC 3.37 L Hgb 10.1 L Hct 30.7 L RDW 15.4 H Plt Count Lymph % (Auto) [place] % (Auto) Lymph # (Auto) [place] # (Auto) Baso # (Auto) Seg Neutrophils % Seg Neuts % (Manual) 93.0 H Lymphocytes % (Manual) 3.0 L Seg Neutrophils # Seg Neutrophils # Man 7.8 H Lymphocytes # (Manual) 0.3 L D-Dimer ABG pH POC ABG pCO2 72.2 H POC ABG pO2 61.5 L ABG pO2 ABG HCO3 ABG O2 Saturation ABG Base Excess ABG Hemoglobin ABG Oxyhemoglobin 89.9 L ABG Sodium 131.4 L ABG Potassium ABG Chloride 91.0 L ABG Glucose 205 H Oxyhemoglobin Carboxyhemoglobin Sodium Potassium Chloride Carbon Dioxide BUN Creatinine Glucose POC Glucose 200 H Hemoglobin A1c Lactic Acid Calcium Ferritin Total Bilirubin AST ALT Alkaline Phosphatase Lactate Dehydrogenase C-Reactive Protein Total Protein Albumin Triglycerides Arterial Blood Glucose 205 H Arterial Blood Ionized Calcium 4.3 L Ur Specific [place] Vancomycin Trough Coronavirus (PCR) 12/14/20 12/14/20 12/14/20 04:35 05:12 11:31 WBC RBC Hgb Hct RDW Plt Count Lymph % (Auto) [place] % (Auto) Lymph # (Auto) [place] # (Auto) Baso # (Auto) Seg Neutrophils % Seg Neuts % (Manual) Lymphocytes % (Manual) Seg Neutrophils # Seg Neutrophils # Man Lymphocytes # (Manual) D-Dimer ABG pH POC ABG pCO2 POC ABG pO2 ABG pO2 ABG HCO3 ABG O2 Saturation ABG Base Excess ABG Hemoglobin ABG Oxyhemoglobin ABG Sodium ABG Potassium ABG Chloride ABG Glucose Oxyhemoglobin Carboxyhemoglobin Sodium 135 L Potassium Chloride 92.5 L Carbon Dioxide 38 H BUN Creatinine 0.2 L Glucose 184 H POC Glucose 176 H 212 H Hemoglobin A1c Lactic Acid Calcium 7.7 L Ferritin Total Bilirubin AST ALT Alkaline Phosphatase Lactate Dehydrogenase C-Reactive Protein Total Protein Albumin Triglycerides Arterial Blood Glucose Arterial Blood Ionized Calcium Ur Specific [place] Vancomycin Trough Coronavirus (PCR) 12/14/20 12/14/20 12/15/20 17:30 23:30 03:19 WBC RBC Hgb Hct RDW Plt Count Lymph % (Auto) [place] % (Auto) Lymph # (Auto) [place] # (Auto) Baso # (Auto) Seg Neutrophils % Seg Neuts % (Manual) Lymphocytes % (Manual) Seg Neutrophils # Seg Neutrophils # Man Lymphocytes # (Manual) D-Dimer ABG pH POC ABG pCO2 62.0 H POC ABG pO2 66.0 L ABG pO2 ABG HCO3 ABG O2 Saturation ABG Base Excess ABG Hemoglobin 10.3 L ABG Oxyhemoglobin ABG Sodium 130.5 L ABG Potassium ABG Chloride 91.0 L ABG Glucose 166 H Oxyhemoglobin Carboxyhemoglobin Sodium Potassium Chloride Carbon Dioxide BUN Creatinine Glucose POC Glucose 222 H 176 H Hemoglobin A1c Lactic Acid Calcium Ferritin Total Bilirubin AST ALT Alkaline Phosphatase Lactate Dehydrogenase C-Reactive Protein Total Protein Albumin Triglycerides Arterial Blood Glucose 166 H Arterial Blood Ionized Calcium 4.4 L Ur Specific [place] Vancomycin Trough Coronavirus (PCR) 12/15/20 05:24 WBC RBC Hgb Hct RDW Plt Count Lymph % (Auto) [place] % (Auto) Lymph # (Auto) [place] # (Auto) Baso # (Auto) Seg Neutrophils % Seg Neuts % (Manual) Lymphocytes % (Manual) Seg Neutrophils # Seg Neutrophils # Man Lymphocytes # (Manual) D-Dimer ABG pH POC ABG pCO2 POC ABG pO2 ABG pO2 ABG HCO3 ABG O2 Saturation ABG Base Excess ABG Hemoglobin ABG Oxyhemoglobin ABG Sodium ABG Potassium ABG Chloride ABG Glucose Oxyhemoglobin Carboxyhemoglobin Sodium Potassium Chloride Carbon Dioxide BUN Creatinine Glucose POC Glucose 160 H Hemoglobin A1c Lactic Acid Calcium Ferritin Total Bilirubin AST ALT Alkaline Phosphatase Lactate Dehydrogenase C-Reactive Protein Total Protein Albumin Triglycerides Arterial Blood Glucose Arterial Blood Ionized Calcium Ur Specific [place] Vancomycin Trough Coronavirus (PCR)
--- NOTE | 2020-12-15 12:51 | Progress Note ---
Assessment and Plan Cultures: SARS CoV-2 PCR: positive Blood culture: No growth 11/21/2020 tracheal aspirate culture: MRSA 12/09/2020 blood culture: no growth 12/09/2020 sputum culture: Klebsiella A/P: 59-year-old male with: #Bilateral pneumonia: secondary to COVID-19. Completed 5 days of abx, remdesivir. #Klebsiella on ET aspirate culture: ?colonization v/s true disease, difficult to differentiate. Will treat given development of low-grade temperatures and white count. #Right-sided pneumothorax and pneumomediastinum: Underwent placement of right- sided chest tube, likely secondary to COVID-19. #Acute hypoxic respiratory failure: Failed BiPAP. Remains on the vent. #Elevated d-dimer: DVT scan negative. Unable to get CTA Chest due to patients unstable clinical status #Transaminitis: secondary to COVID-19. Recs: -continue Ceftriaxone, D5 today of 5 then STOP -very poor prognosis Dayday Driscoll MD, FACP [facility] ([facility] O: [phone] F: [phone] Subjective Date of service: 12/15/20 Principal diagnosis: COVID-19 Interval history: Low-grade fever. Remains on steroids, pressors. Remains intubated with high requirements. Objective - Exam Narrative Exam: Physical Exam (reviewed in chart to minimize risk of transmission) Constitutional: deferred Head, Ears, Nose: deferred Eyes: deferred Neck: deferred Oral: deferred Cardiovascular: deferred Respiratory: deferred GI: deferred Musculoskeletal: deferred Skin: deferred Hem/Lymphatic: deferred Psych: deferred Neurological: deferred - Constitutional Vitals: Vital Signs Temp Pulse Resp BP Pulse Ox 100.3 F H 55 L 30 H 117/66 100 12/15/20 12:00 12/15/20 12:00 12/15/20 12:00 12/15/20 12:00 12/15/20 12:00 Temperature -Last 24 Hours Temperature 100.3 F Temperature 98.7 F Temperature 98.8 F Temperature 98.4 F Temperature 98.9 F Temperature 99.8 F - Labs CBC & Chem 7: 12/14/20 04:35 12/14/20 04:35 Labs: Abnormal lab results 12/14/20 12/14/20 12/14/20 Range/Units 11:31 17:30 23:30 POC ABG pCO2 (32.0-48.0) mmHg POC ABG pO2 (83-108) mmHg ABG Hemoglobin (12.0-17.5) ABG Sodium (136.0-145.0) mmol/L ABG Chloride (98-107) mmol/L ABG Glucose (65-95) mg/dL POC Glucose 212 H 222 H 176 H (70-105) mg/dL Arterial Blood Glucose (65-95) mg/dL Arterial Blood Ionized Calcium (4.6-5.3) mg/dL 12/15/20 12/15/20 12/15/20 Range/Units 03:19 05:24 11:39 POC ABG pCO2 62.0 H (32.0-48.0) mmHg POC ABG pO2 66.0 L (83-108) mmHg ABG Hemoglobin 10.3 L (12.0-17.5) ABG Sodium 130.5 L (136.0-145.0) mmol/L ABG Chloride 91.0 L (98-107) mmol/L ABG Glucose 166 H (65-95) mg/dL POC Glucose 160 H 140 H (70-105) mg/dL Arterial Blood Glucose 166 H (65-95) mg/dL Arterial Blood Ionized Calcium 4.4 L (4.6-5.3) mg/dL
--- NOTE | 2020-12-15 14:51 | Progress Note ---
<LISSETH ALSTON - Last Filed: 12/15/20 14:53> Assessment and Plan Assessment and plan: Sepsis secondary to MRSA pneumonia: S/p antibiotics, 11/21 tracheal aspirate with MRSA, 12/09 blood cultures x2 with no growth to date, 12/09 sputum culture with Klebsiella pneumonia, antibiotic therapy, infectious disease consulted, ap preciate recommendations COVID-19 pneumonia: 12/06 Covid PCR positive, 12/13 Covid PCR positive, infectious disease and pulmonology consulted (appreciate recommendations) contact/droplet precautions, s/p remdesivir Acute hypoxic hypercapnic respiratory failure: S/p intubation on mechanical ventilation, CCM following, weaning as tolerated Bilateral pneumothorax: S/p bilateral chest tube placement with surgery, patient still requires high PEEP Pneumomediastinum with subcutaneous emphysema: S/p chest tube placement by surgery Elevated D-dimer: Bilateral lower extremity Dopplers are negative, unable to obtain CTA due to unstable clinical status Transaminitis: Secondary to COVID-19 Klebsiella pneumonia: Noted on sputum culture from 11/21, per infectious disease: Questionable colonization versus true disease, antibiotic therapy (cefepime desiccated to ceftriaxone) Type 2 diabetes mellitus: Accu-Cheks AC at bedtime, SSI, long-acting insulin DVT/GI prophylaxis: SCDs to bilateral lower extremities while in bed, Lovenox subcu, PPI Disposition: ICU History Interval history: 59-year-old female who is smoker who presented to [facility] with shortness of breath cough fever weakness for 1 to 2 days prior to arrival. Per EMS the patient was severely hypoxic with saturations in the low 80s. With all oxygen and nonrebreather came down to low 90s. ID, pulmonary, CCM were consulted. 2: Patient continues on BiPAP throughout the night. Labs are remarkable for hypoxia with improving renal function but lactic acidosis without fever. CTA has been ordered to rule out pulmonary embolism. I agree with increasing enoxaparin to twice daily full dose for empiric treatment of pulmonary embolism. Will obtain ID consultation on further evaluation for possible underlying pneumonia versus COVID-19. We will also obtain echocardiogram for evaluation. Will discontinue fluids at this time. 2/2; Continue supportive care, Patient remains with very guarded prognosis, remains on BiPAP, continues on Remdesivir, and steroids. Will continue anticoagulation, unable to get CTA Chest due to patients unstable clinical status. Will adjust insulin for better blood glucose 2/3: Continues on BIPAP, no clear improvement at this time. Will continue steroids therapy Remdesivir and also Full anticoagulation at this time. Will update family. Discussed with Coating Mixer. 11/19: Taking a break from the BiPAP on high flow and nonrebreather 100% with saturation of 90% becomes hypoxic with any movement. Coating Mixer input noted will get a dose of Lasix today. Will await a discussion with ID for possibly increasing steroid. I updated Patient's Cousin, Tayla Esquievl who is the emergency personnel interviewer. Blood sugar remains fluctuating secondary to steriods, Encouraged Prone positioning. Noted with mild hyponatremia we will continue to monitor and manage 2: Continue supportive care wean oxygen as tolerated prognosis remains guarded. Encouraged to progress as tolerated. Awaiting labs today. Discussed with nursing staff and patient at bedside. 11/21: Discontinued Dexamethasone as Solumedrol started secondary to increased oxygen demand. Will give additional insulin for better control. Continue oxygen support patient still on high flow. Prognosis still guarded 11/22: Patient was intubated and placed on mechanical ventilation. Continue current medication. Will check a.m. labs today. Noted still with hypotension. Doubt septic shock at this time as patient has no new fever. Will adjust insulin for better blood sugar control. 11/23: Patient admitted with COVID-19 despite all efforts patient remains severely hypoxic and now is intubated. Coating Mixer input noted. Blood pressure marginal at this time. Very poor prognosis. Continue Solu-Medrol. 11/24. Patient remains very hypoxic. Blood pressure borderline. Plan for initiation of paralytic agents as per food and beverage order clerk. Patient may need to be transferred if no improvement. 11/26. Off paralytics. Remains intubated. On steroids. Prognosis is poor. 11/27. Chest xray shows pneumomediastinum and subcutaneous emphysema. Surgery consulted. Plan for chest tube placement. Sputum culture grew MRSA. Patient started on vancomycin per ID. 11/28. Right chest tube placed yesterday by surgery. Repeat chest x-ray showed left small pneumothorax. Plan for chest tube placement on the left today. Remains on paralytic agents. 11/29. Remains intubated on vent. Had left chest tube placed yesterday. Vitals reviewed. Critical care following 11/30/ Remains on mechanical ventilation. Worsening hypoxia. Bilateral chest tubes in place. Vitals reviewed. Labs reviewed 12/01: Chest tube and mechanical ventilation remains in place, poor prognosis, FIO2 remains at 90%, adjust insulin for better blood glucose control 12/02: Patient remains on full ventilatory support and steroids, still with worsening leukocytosis ?inflammatory or infectious vs steroids. Continue vancomycin. 12/03; slowly weaning, 12/04: Still on the vent FiO2 down to 65% PEEP remains at 18. Still with poor prognosis. 12/05: Patient continues on full ventilatory support per food and beverage order clerk PEEP remains at 18. Still with hypercapnic respiratory failure. FiO2 down to 60% this morning. Chest tube to suction still weaning off steroids in the deliberation ongoing for possible a third chest tube as last documentation by surgery shows no plan for it at this time. Continue to manage insulin for better blood sugar control. 12/06:weaned down to 60%, continue supportive care, unable to wean, 12/07; patient remains intubated on ventilatory support, chest tubes in place trach and PEG when patient's Covid test is negative,Per surgery. 12/08; Patient remains intubated remains with hypercapnia and hypoxia. Chest tube still remain in place. He is off antibiotics at this time. Continue steroids which is likely resultant to the leukocytosis. Coating Mixer and surgeon following ID input is noted. Prognosis remains guarded to poor 12/10; patient remains intubated on vent, unable to wean awaiting trach and PEG when Covid test is negative, Continue current management 12/11; patient awaiting trach and PEG when Covid test is negative, vent dependent, poor prognosis 12/12; clinically no change, vent dependent, Patient is critically ill with very poor prognosis, awaiting trach and PEG when COVID-19 test turns negative. Plan discussed with nursing staff. Caregivers have discussed with patient's family periodically 12/13: Patient is critically ill with very poor prognosis, awaiting trach and PEG when COVID-19 test turns negative. Plan discussed with nursing staff. Caregivers have discussed with patient's family periodically 12/14: Increase UOP which we will monitor and replete as needed. Patient remain hypoxemic on ABG despite 100 FiO2, remains on fentanyl, precedex, versed and levo gtt. 12/15: Patient remains sedated on fentanyl at 3 mcg, Versed at 30 mg, dexamethasone 0.3 and was on Levophed 6 mcg this morning. Patient's vent settings rate of 30, tidal volume 425, PEEP of 18, FiO2 of 85. RT attempted to wean as tolerated. No acute events reported overnight. Bilateral chest tubes to wall suction. Hospitalist Physical - Constitutional Vitals: Temp Pulse Resp BP Pulse Ox 100.3 F H 108 H 30 H 126/72 98 12/15/20 12:00 12/15/20 14:00 12/15/20 14:00 12/15/20 14:00 12/15/20 14:00 General appearance: Present: mild distress, well-nourished, other (Vent dependent) - EENT Eyes: Present: EOM intact ENT: dentition normal - Neck Neck: Present: normal ROM - Respiratory Respiratory effort: normal Respiratory: bilateral: rhonchi - Cardiovascular Rhythm: regular Heart Sounds: Present: S1 & S2. Absent: systolic murmur, diastolic murmur - Extremities Extremities: no ischemia, pulses intact, pulses symmetrical, No edema, normal temperature, normal color Peripheral Pulses: within normal limits - Abdominal General gastrointestinal: soft, non-tender, non-distended, normal bowel sounds - Integumentary Integumentary: Present: warm, dry - Psychiatric Psychiatric: other (Sedated) - Neurologic Neurologic: other (Sedated) - Allied Health Allied health notes reviewed: nursing HEART Score - HEART Score Troponin: Troponin T < 0.010 ng/mL (0.00-0.029) 12/11/20 06:30 Results - Labs CBC & Chem 7: 12/14/20 04:35 12/14/20 04:35 Labs: Laboratory Last Values WBC 8.4 K/mm3 (4.5-11.0) 12/14/20 04:35 RBC 3.37 M/mm3 (3.65-5.03) L 12/14/20 04:35 Hgb 10.1 gm/dl (11.8-15.2) L 12/14/20 04:35 Hct 30.7 % (35.5-45.6) L 12/14/20 04:35 MCV 91 fl (84-94) 12/14/20 04:35 MCH 30 pg (28-32) 12/14/20 04:35 MCHC 33 % (32-34) 12/14/20 04:35 RDW 15.4 % (13.2-15.2) H 12/14/20 04:35 Plt Count 253 K/mm3 (140-440) 12/14/20 04:35 Lymph % (Auto) 2.0 % (13.4-35.0) L 11/27/20 06:25 Thayer % (Auto) 5.2 % (0.0-7.3) 11/27/20 06:25 Eos % (Auto) 0.0 % (0.0-4.3) 11/27/20 06:25 Baso % (Auto) 0.1 % (0.0-1.8) 11/27/20 06:25 Lymph # (Auto) 0.3 K/mm3 (1.2-5.4) L 11/27/20 06:25 Thayer # (Auto) 0.7 K/mm3 (0.0-0.8) 11/27/20 06:25 Eos # (Auto) 0.0 K/mm3 (0.0-0.4) 11/27/20 06:25 Baso # (Auto) 0.0 K/mm3 (0.0-0.1) 11/27/20 06:25 Add Manual Diff Complete 12/14/20 04:35 Total Counted 100 12/14/20 04:35 Seg Neutrophils % Stem Dryer Maintainer 12/14/20 04:35 Seg Neuts % (Manual) 93.0 % (40.0-70.0) H 12/14/20 04:35 Band Neutrophils % 2.0 % 12/13/20 11:30 Lymphocytes % (Manual) 3.0 % (13.4-35.0) L 12/14/20 04:35 Monocytes % (Manual) 4.0 % (0.0-7.3) 12/14/20 04:35 Nucleated RBC % Not Reportable 12/14/20 04:35 Seg Neutrophils # 12.7 K/mm3 (1.8-7.7) H 11/27/20 06:25 Seg Neutrophils # Man 7.8 K/mm3 (1.8-7.7) H 12/14/20 04:35 Band Neutrophils # 0.0 K/mm3 12/14/20 04:35 Lymphocytes # (Manual) 0.3 K/mm3 (1.2-5.4) L 12/14/20 04:35 Abs React Lymphs (Man) 0.0 K/mm3 12/14/20 04:35 Monocytes # (Manual) 0.3 K/mm3 (0.0-0.8) 12/14/20 04:35 Eosinophils # (Manual) 0.0 K/mm3 (0.0-0.4) 12/14/20 04:35 Basophils # (Manual) 0.0 K/mm3 (0.0-0.1) 12/14/20 04:35 Metamyelocytes # 0.0 K/mm3 12/14/20 04:35 Myelocytes # 0.0 K/mm3 12/14/20 04:35 Promyelocytes # 0.0 K/mm3 12/14/20 04:35 Blast Cells # 0.0 K/mm3 12/14/20 04:35 WBC Morphology Not Reportable 12/14/20 04:35 Hypersegmented Neuts Not Reportable 12/14/20 04:35 Hyposegmented Neuts Not Reportable 12/14/20 04:35 Hypogranular Neuts Not Reportable 12/14/20 04:35 Smudge Cells Not Reportable 12/14/20 04:35 Toxic Granulation Not Reportable 12/14/20 04:35 Toxic Vacuolation Not Reportable 12/14/20 04:35 Dohle Bodies Not Reportable 12/14/20 04:35 Pelger-Huet Anomaly Not Reportable 12/14/20 04:35 Tony Rods Not Reportable 12/14/20 04:35 Platelet Estimate Consistent w auto 12/14/20 04:35 Clumped Platelets Not Reportable 12/14/20 04:35 Plt Clumps, EDTA Not Reportable 12/14/20 04:35 Large Platelets Not Reportable 12/14/20 04:35 Giant Platelets Not Reportable 12/14/20 04:35 Platelet Satelliting Not Reportable 12/14/20 04:35 Plt Morphology Comment Not Reportable 12/14/20 04:35 RBC Morphology Not Reportable 12/14/20 04:35 Dimorphic RBCs Not Reportable 12/14/20 04:35 Polychromasia Not Reportable 12/14/20 04:35 Hypochromasia Few 12/14/20 04:35 Poikilocytosis Not Reportable 12/14/20 04:35 Anisocytosis Few 12/14/20 04:35 Microcytosis Not Reportable 12/14/20 04:35 Macrocytosis Not Reportable 12/14/20 04:35 Spherocytes Not Reportable 12/14/20 04:35 Pappenheimer Bodies Not Reportable 12/14/20 04:35 Sickle Cells Not Reportable 12/14/20 04:35 Target Cells Not Reportable 12/14/20 04:35 Tear Drop Cells Not Reportable 12/14/20 04:35 Ovalocytes Not Reportable 12/14/20 04:35 Stomatocytes 1+ 12/03/20 04:35 Helmet Cells Not Reportable 12/14/20 04:35 Cabrera[place] Bodies Not Reportable 12/14/20 04:35 Hart Rings Not Reportable 12/14/20 04:35 Reliance Cells Not Reportable 12/14/20 04:35 Bite Cells Not Reportable 12/14/20 04:35 Crenated Cell Not Reportable 12/14/20 04:35 Elliptocytes Not Reportable 12/14/20 04:35 Acanthocytes (Spur) Not Reportable 12/14/20 04:35 Rouleaux Not Reportable 12/14/20 04:35 Hemoglobin C Crystals Not Reportable 12/14/20 04:35 Schistocytes Not Reportable 12/14/20 04:35 Malaria parasites Not Reportable 12/14/20 04:35 Yovani Bodies Not Reportable 12/14/20 04:35 Hem Pathologist Commnt No 12/14/20 04:35 D-Dimer 926.11 ng/mlDDU (0-234) H 11/26/20 06:04 ABG pH 7.417 (7.320-7.450) 12/15/20 03:19 POC ABG pCO2 62.0 mmHg (32.0-48.0) H 12/15/20 03:19 ABG pCO2 81.3 mm Hg 12/08/20 04:12 POC ABG pO2 66.0 mmHg (83-108) L 12/15/20 03:19 ABG pO2 69.7 mm Hg (80.0-90.0) L 12/08/20 04:12 POC ABG HCO3 39 12/15/20 03:19 ABG HCO3 50.1 mmol/L (20.0-26.0) H 12/08/20 04:12 ABG O2 Saturation 95.4 % (95.0-99.0) 12/08/20 04:12 ABG O2 Content 13.0 (0.0-44) 12/07/20 05:20 POC ABG Base Excess 12.5 12/15/20 03:19 ABG Base Excess 21.6 mmol/L (-2.0-3.0) H 12/08/20 04:12 ABG Hemoglobin 10.3 (12.0-17.5) L 12/15/20 03:19 ABG Oxyhemoglobin 89.9 (94-98) L 12/14/20 04:05 ABG Carboxyhemoglobin 2.0 % (0.0-5.0) 12/08/20 04:12 ABG Methemoglobin 0.3 (0.0-1.5) 12/14/20 04:05 ABG Sodium 130.5 mmol/L (136.0-145.0) L 12/15/20 03:19 ABG Potassium 3.9 mmol/L (3.40-4.50) 12/15/20 03:19 ABG Chloride 91.0 mmol/L (98-107) L 12/15/20 03:19 ABG Glucose 166 mg/dL (65-95) H 12/15/20 03:19 Oxyhemoglobin 93.2 % (95.0-99.0) L 12/08/20 04:12 Carboxyhemoglobin 1.1 (0.5-1.5) 12/14/20 04:05 FiO2 85 12/15/20 03:19 Sodium 135 mmol/L (137-145) L 12/14/20 04:35 Potassium 4.7 mmol/L (3.6-5.0) 12/14/20 04:35 Chloride 92.5 mmol/L (98-107) L 12/14/20 04:35 Carbon Dioxide 38 mmol/L (22-30) H 12/14/20 04:35 Anion Gap 9 mmol/L 12/14/20 04:35 BUN 12 mg/dL (9-20) 12/14/20 04:35 Creatinine 0.2 mg/dL (0.8-1.3) L 12/14/20 04:35 Estimated GFR > 60 ml/min 12/14/20 04:35 BUN/Creatinine Ratio 60 % 12/14/20 04:35 Glucose 184 mg/dL (75-100) H 12/14/20 04:35 POC Glucose 140 mg/dL (70-105) H 12/15/20 11:39 Hemoglobin A1c 11.7 % (4-6) H 11/16/20 05:29 Lactic Acid 2.60 mmol/L (0.7-2.0) H* 11/16/20 05:29 Calcium 7.7 mg/dL (8.4-10.2) L 12/14/20 04:35 Phosphorus 2.90 mg/dL (2.5-4.5) 12/04/20 Unknown Magnesium 1.80 mg/dL (1.7-2.3) 12/14/20 04:35 Ferritin 778.8 ng/mL (30.0-300.0) H 11/26/20 04:00 Total Bilirubin 0.50 mg/dL (0.1-1.2) 12/13/20 11:30 AST 34 units/L (5-40) 12/13/20 11:30 ALT 61 units/L (7-56) H 12/13/20 11:30 Alkaline Phosphatase 117 units/L (35-129) 12/13/20 11:30 Lactate Dehydrogenase 288 units/L (91-180) H 11/26/20 04:00 Troponin T < 0.010 ng/mL (0.00-0.029) 12/11/20 06:30 C-Reactive Protein 1.40 mg/dL (0.00-1.30) H 11/26/20 04:00 NT-Pro-B Natriuret Pep 107.2 pg/mL (0-900) 11/17/20 10:21 Total Protein 5.7 g/dL (6.3-8.2) L 12/13/20 11:30 Albumin 2.3 g/dL (3.9-5) L 12/13/20 11:30 Albumin/Globulin Ratio 0.7 % 12/13/20 11:30 Triglycerides 150 mg/dL (2-149) H 12/12/20 05:16 Procalcitonin 0.16 ng/mL (<0.15) 12/12/20 05:16 Arterial Blood Glucose 166 mg/dL (65-95) H 12/15/20 03:19 Arterial Blood Ionized Calcium 4.4 mg/dL (4.6-5.3) L 12/15/20 03:19 Urine Color Faustina (Yellow) 11/16/20 01:45 Urine Turbidity Slightly-cloudy (Clear) 11/16/20 01:45 Urine pH 6.0 (5.0-7.0) 11/16/20 01:45 Ur Specific Brea 1.037 (1.003-1.030) H 11/16/20 01:45 Urine Protein 30 mg/dl mg/dL (Negative) 11/16/20 01:45 Urine Glucose (UA) >=500 mg/dL (Negative) 11/16/20 01:45 Urine Ketones 20 mg/dL (Negative) 11/16/20 01:45 Urine Blood Neg (Negative) 11/16/20 01:45 Urine Nitrite Neg (Negative) 11/16/20 01:45 Urine Bilirubin Neg (Negative) 11/16/20 01:45 Urine Urobilinogen 2.0 mg/dL (<2.0) 11/16/20 01:45 Ur Leukocyte Esterase Neg (Negative) 11/16/20 01:45 Urine WBC (Auto) 2.0 /HPF (0.0-6.0) 11/16/20 01:45 Urine RBC (Auto) 1.0 /HPF (0.0-6.0) 11/16/20 01:45 Urine Bacteria (Auto) 1+ /HPF (Negative) 11/16/20 01:45 Urine Mucus 3+ /HPF 11/16/20 01:45 Vancomycin Trough 4.0 ug/mL (5.0-20.0) L 11/29/20 15:40 Coronavirus (PCR) Positive (Negative) A 12/13/20 10:00 Microbiology: Microbiology 11/21/20 23:49 Tracheal Aspirate Sputum Culture - Final Methicillin Resist S. Aureus 12/09/20 11:37 Peripheral/Venous Blood Culture - Final NO GROWTH AFTER 5 DAYS 12/09/20 11:37 Peripheral/Venous Blood Culture - Final NO GROWTH AFTER 5 DAYS - Diagnostic Impressions Diagnostic Impressions: Echocardiogram 11/16/20 10:34 Transthoracic Echocardiogram Indication: Shortness of breath-COVID BP: 108/77 HR: 92 Conclusions *Global left ventricular systolic function is normal. *The estimated ejection fraction is 60-65%. *Mild to moderate concentric left ventricular hypertrophy is observed. *There is trace of mitral regurgitation. *There is mild to moderate tricuspid regurgitation. *There is evidence of mild pulmonary hypertension. *The right ventricular systolic pressure is calculated at 31 mmHg. Findings Left Ventricle: The left ventricular chamber size is normal. Mild to moderate concentric left ventricular hypertrophy is observed. Global left ventricular systolic function is normal. The estimated ejection fraction is 60-65%. Left Atrium: The left atrial chamber size is normal. Right Ventricle: The right ventricular cavity size is normal. The right ventricular global systolic function is normal. Right Atrium: The right atrial cavity size is normal. Aortic Valve: The aortic valve is trileaflet. There is no evidence of aortic regurgitation. There is no evidence of aortic stenosis. Mitral Valve: The mitral valve leaflets appear normal. There is trace of mitral regurgitation. There is no evidence of mitral stenosis. Tricuspid Valve: The tricuspid valve leaflets are normal. There is mild to moderate tricuspid regurgitation. The right ventricular systolic pressure is calculated at 31 mmHg. There is evidence of mild pulmonary hypertension. Pulmonic Valve: There is trace pulmonic regurgitation. Pericardium: There is no pericardial effusion. Aorta: There is no dilatation of the ascending aorta. There is no dilatation of the aortic root. Venous: The inferior vena cava appears normal in size. Measurements Chambers 2D Name Value Normal Range IVSd (2D) 0.81 cm (0.6 - 1.1) LVPWd (2D) 0.79 cm (0.6 - 1.1) LVIDd (2D) 4.22 cm (3.7 - 5.6) LVIDs (2D) 3.1 cm (2 - 3.8) LV FS (2D) 26.71 % - EF Teichholz (2D) 52.55 % - Ao root diameter (2D) 3.34 cm (2 - 3.7) Volumes/Mass Name Value Normal Range LA ESV SP 4CH (A/L) 10.87 ml - LA ESV SP 2CH (A/L) 18.74 ml - LA ESV BP (A/L) 16.38 ml - LA ESV BP (A/L) index 8.62 ml/m2 - LA ESV SP 4CH (MOD) 10.32 ml - LA ESV SP 2CH (MOD) 17.66 ml - LA ESV BP (MOD) 15.12 ml - LA ESV BP (MOD) index 7.96 ml/m2 - Diastolic/Systolic Function Name Value Normal Range MV E-wave Vmax 0.76 m/sec - MV deceleration time 133.63 msec - MV A-wave Vmax 1.1 m/sec - MV E:A ratio 0.69 ratio - Aortic Valve Name Value Normal Range AV Vmax 1.44 m/sec - AV VTI 22.94 cm - AV peak gradient 8.33 mmHg - AV mean gradient 4.73 mmHg - LVOT diameter 2.2 cm - LVOT Vmax 1.04 m/sec - LVOT VTI 18.88 cm - LVOT peak gradient 4.34 mmHg - LVOT mean gradient 2.31 mmHg - SV LVOT 72.05 ml - EVANGELISTA (continuity Vmax) 2.75 cm2 - EVANGELISTA (continuity VTI) 3.14 cm2 - Tricuspid Valve Name Value Normal Range TR Vmax 2.64 m/sec - TR peak gradient 28 mmHg - RAP 3 mmHg - RVSP 31 mmHg - Gupta/IV: Voiding Method Indwelling Catheter IV Catheter Type [Left Peripheral IV Antecubital] Active Medications - Current Medications Current Medications: Generic Name Dose Route Start Last Admin Trade Name Freq PRN Reason Stop Dose Admin Acetaminophen 650 mg 11/15/20 23:55 12/09/20 00:14 Acetaminophen 325 Mg Tab PO 650 mg Q4H PRN Administration Pain MILD(1-3)/Fever >100.5/BUTTS Lipase/Protease/Amylase 1 each 11/23/20 11:53 12/05/20 23:45 Lipase 10,500/Protease 25,000/Amylase 43,750 (Units) Dr Slater FEEDTUBE 1 each PRN PRN Administration For Clogged Feeding Tube Dextrose 25 ml 12/10/20 05:21 12/10/20 05:24 Dextrose 50% In Water (25gm) 50 Ml Syringe IV 25 ml Q30MIN PRN Administration Hypoglycemia Protocol Enoxaparin Sodium 40 mg 12/03/20 22:00 12/14/20 21:11 Enoxaparin 40 Mg/0.4 Ml Inj SUB-Q 40 mg QDAY@2200 RAEANN Administration Famotidine 20 mg 11/22/20 22:00 12/15/20 10:26 Famotidine 20 Mg/2 Ml Inj IV 20 mg BID RAEANN Administration Fentanyl 50 mcg 11/21/20 21:53 12/14/20 15:04 Fentanyl 100 Mcg/2 Ml Inj IV 50 mcg Q10MIN PRN Administration ANALGESIA Hydrophilic Ointment 1 applic 11/21/20 21:53 11/30/20 21:33 Lip Therapy Vaseline TP 1 applic Q2HR PRN Administration Dry Lips Fentanyl Citrate 2,000 mcg in 100 mls @ 3.625 mls/hr 11/21/20 22:00 12/15/20 12:06 Fentanyl Drip Premix IV 4 mcg/kg/hr TITR RAEANN 14.5 mls/hr Administration Protocol 1 MCG/KG/HR Midazolam HCl 100 mg/ Sodium 100 mls @ 2 mls/hr 11/21/20 22:00 12/15/20 06:01 Chloride IV 5 mg/hr TITR RAEANN 5 mls/hr Titration Protocol 2 MG/HR Norepinephrine 4 mg in 250 mls @ 7.5 mls/hr 11/22/20 17:00 12/15/20 07:48 Levophed Drip 4 Mg/Ns 250 Ml IV 6 mcg/min TITR RAEANN 22.5 mls/hr Administration Protocol 2 MCG/MIN Propofol 1,000 mg in 100 mls @ 2.175 mls/hr 11/27/20 12:00 12/11/20 17:55 Diprivan 10 Mg/Ml IV 0 mcg/kg/min TITR RAEANN 0 mls/hr Titration Protocol 5 MCG/KG/MIN Dexmedetomidine HCl 400 mcg/ 104 mls @ 4.441 mls/hr 12/10/20 13:00 12/15/20 10:27 Sodium Chloride IV 0.6 mcg/kg/hr TITRATE RAEANN 13.322 mls/hr Titration Protocol 0.2 MCG/KG/HR Insulin Glargine 5 units 12/14/20 22:00 12/14/20 21:11 Insulin Glargine 100 Units/Ml SUB-Q 5 units QHS RAEANN Administration Insulin Human Lispro 0 unit 11/22/20 06:00 12/15/20 12:01 Insulin Lispro 100 Unit/Ml SUB-Q Not Given Q6HR [facility] Protocol Methylprednisolone Sodium Succinate 20 mg 12/15/20 10:00 12/15/20 10:26 Methylprednisolone Sod Succinate 40 Mg/1 Ml Inj IV 20 mg Q24HR RAEANN Administration Metoclopramide HCl 10 mg 11/15/20 23:55 Metoclopramide 10 Mg/2 Ml Inj IV Q6H PRN Nausea And Vomiting Multi-Ingred Cream/Lotion/Oil/Oint 1 applic 11/21/20 21:53 Mineral Oil/Petrolatum, White Ophth Oint 3.5 Gm OU Q4HR PRN Dry Eye(s) Ondansetron HCl 4 mg 11/15/20 23:55 Ondansetron 4 Mg/2 Ml Inj IV Q8H PRN Nausea And Vomiting Senna/Docusate Sodium 2 tab 12/03/20 13:00 12/15/20 10:28 Sennosides/Docusate Sodium 8.6/50 Mg Tab PO 2 tab BID RAEANN Administration Simple Syrup 15 ml 11/23/20 11:53 Simple Syrup 15 Ml FEEDTUBE PRN PRN Hypoglycemia Simple Syrup 30 ml 11/23/20 11:53 Simple Syrup 15 Ml FEEDTUBE PRN PRN Hypoglycemia Sodium Bicarbonate 325 mg 11/23/20 11:53 12/05/20 23:46 Sodium Bicarbonate 325 Mg Tab FEEDTUBE 325 mg PRN PRN Administration For Clogged Feeding Tube Sodium Chloride 10 ml 11/16/20 10:00 12/15/20 10:28 Sodium Chloride 0.9% 10 Ml Flush Syringe IV 10 ml BID RAEANN Administration Sodium Chloride 10 ml 11/15/20 23:55 12/03/20 00:21 Sodium Chloride 0.9% 10 Ml Flush Syringe IV 10 ml PRN PRN Administration LINE FLUSH Nutrition/Malnutrition Assess - Dietary Evaluation Nutrition/Malnutrition Findings: Nutrition Notes Start: 11/20/20 12:03 Freq: Status: Active Protocol: Document 12/09/20 11:11 AL (Rec: 12/09/20 11:25 AL [id number]) Co-Sign 12/09/20 11:11 LP Nutrition Notes Initial or Follow up Reassessment Current Diagnosis Diabetes,Sepsis,Respiratory Failure Other Pertinent Diagnosis Bilat pneu, COVID-19 (+) Current Diet Glucerna 1.2 at 60 ml/hr Labs/Tests Na 134 Cr .3 Pertinent Medications Propofol at 13.05 ml/hr (344 kcal) Solumedrol Senreginaot S Height 5 ft 6 in Weight 85.4 kg Usual Body Weight 80.5 kg Carney Body Weight (kg) 64.54 BMI 30.4 Weight Status Overweight Subjective/Other Information F/U for TF tolerance. Pt tolerating TF at 60 ml/hr ( goal rate) Percent of energy/protein needs met: 100%/100% Burn Absent Trauma Absent GI Symptoms Last BM Difficulty In Swallowing,Chewing Food Allergy No Current % PO Negligible Minimum of two criteria Yes Energy Intake (severe) < or equal to 50% Estimated Energy Requirement > or equal to 5 days Interpretation of Weight Loss (severe) >2% in 1 week Fluid Accumulation Moderate to Severe (severe) #3 Nutrition Diagnosis Inadequate oral intake Diagnosis Progress(for reassessment Continues documentation) #2 Nutrition Diagnosis Malnutrition Diagnosis Progress(for reassessment Continues documentation) #1 Nutrition Diagnosis Unintended weight loss Diagnosis Progress(for reassessment Continues documentation) Is patient on ventilator? Yes Is Patient Ambulatory and/or Out of Bed No REE-([place] [facility] [place]-confined to bed) 1944.648 Kcal/Kg value to use for calculation 21 Approximate Energy Requirements Using 1793 kcal/Kg Calculation Used for Recommendations Kcal/kg Additional Notes Protein: 87-145 g/day (1.2-2g/ kg) Fluid: 1ml/kcal or per MD Nutrition Intervention Change Diet Order: Continue TF Nutrition Support: Glucerna 1.2 at 60 ml/hr. Flush 100 ml q4h Kcal 1,728 Protein (gm) 86 Fluid (mL) 1,159 Goal #1 TF tolerance Goal #2 Meet at least 75% of energy and protein needs via TF Anticipated Discharge Needs: Unknown at this time Follow-Up By: 12/16/20 Additional Comments FU for TF tolerance <DEMETRIO GONZALEZ - Last Filed: 12/16/20 07:16> Assessment and Plan Assessment and plan: I saw and evaluated the patient. I agree with the findings and the plan of care as documented in the Nurse Practitioner's~note, with the following corrections and additions. The high probability of a clinically significant, sudden or life threatening deterioration of the [PULMONARY] system(s) required my full and direct attention, intervention and personal management. The aggregate critical care time was [35] minutes. This time is in addition to time spent performing reported procedures but includes the following: [X] Data Review and interpretation [X] Patient assessment and monitoring of vital signs [X] Documentation [X] Medication orders and management Hospitalist Physical - Constitutional Vitals: Temp Pulse Resp BP Pulse Ox 99.4 F 85 30 H 104/58 95 12/16/20 03:58 12/16/20 06:00 12/16/20 06:00 12/16/20 06:00 12/16/20 06:00 HEART Score - HEART Score Troponin: Troponin T < 0.010 ng/mL (0.00-0.029) 12/11/20 06:30 Results - Labs CBC & Chem 7: 12/16/20 04:46 12/16/20 04:46 Labs: Laboratory Last Values WBC 9.7 K/mm3 (4.5-11.0) 12/16/20 04:46 RBC 3.48 M/mm3 (3.65-5.03) L 12/16/20 04:46 Hgb 10.6 gm/dl (11.8-15.2) L 12/16/20 04:46 Hct 31.5 % (35.5-45.6) L 12/16/20 04:46 MCV 90 fl (84-94) 12/16/20 04:46 MCH 30 pg (28-32) 12/16/20 04:46 MCHC 34 % (32-34) 12/16/20 04:46 RDW 15.8 % (13.2-15.2) H 12/16/20 04:46 Plt Count 317 K/mm3 (140-440) 12/16/20 04:46 Lymph % (Auto) 2.0 % (13.4-35.0) L 11/27/20 06:25 Thayer % (Auto) 5.2 % (0.0-7.3) 11/27/20 06:25 Eos % (Auto) 0.0 % (0.0-4.3) 11/27/20 06:25 Baso % (Auto) 0.1 % (0.0-1.8) 11/27/20 06:25 Lymph # (Auto) 0.3 K/mm3 (1.2-5.4) L 11/27/20 06:25 Thayer # (Auto) 0.7 K/mm3 (0.0-0.8) 11/27/20 06:25 Eos # (Auto) 0.0 K/mm3 (0.0-0.4) 11/27/20 06:25 Baso # (Auto) 0.0 K/mm3 (0.0-0.1) 11/27/20 06:25 Add Manual Diff Complete 12/14/20 04:35 Total Counted 100 12/14/20 04:35 Seg Neutrophils % Stem Dryer Maintainer 12/14/20 04:35 Seg Neuts % (Manual) 93.0 % (40.0-70.0) H 12/14/20 04:35 Band Neutrophils % 2.0 % 12/13/20 11:30 Lymphocytes % (Manual) 3.0 % (13.4-35.0) L 12/14/20 04:35 Monocytes % (Manual) 4.0 % (0.0-7.3) 12/14/20 04:35 Nucleated RBC % Not Reportable 12/14/20 04:35 Seg Neutrophils # 12.7 K/mm3 (1.8-7.7) H 11/27/20 06:25 Seg Neutrophils # Man 7.8 K/mm3 (1.8-7.7) H 12/14/20 04:35 Band Neutrophils # 0.0 K/mm3 12/14/20 04:35 Lymphocytes # (Manual) 0.3 K/mm3 (1.2-5.4) L 12/14/20 04:35 Abs React Lymphs (Man) 0.0 K/mm3 12/14/20 04:35 Monocytes # (Manual) 0.3 K/mm3 (0.0-0.8) 12/14/20 04:35 Eosinophils # (Manual) 0.0 K/mm3 (0.0-0.4) 12/14/20 04:35 Basophils # (Manual) 0.0 K/mm3 (0.0-0.1) 12/14/20 04:35 Metamyelocytes # 0.0 K/mm3 12/14/20 04:35 Myelocytes # 0.0 K/mm3 12/14/20 04:35 Promyelocytes # 0.0 K/mm3 12/14/20 04:35 Blast Cells # 0.0 K/mm3 12/14/20 04:35 WBC Morphology Not Reportable 12/14/20 04:35 Hypersegmented Neuts Not Reportable 12/14/20 04:35 Hyposegmented Neuts Not Reportable 12/14/20 04:35 Hypogranular Neuts Not Reportable 12/14/20 04:35 Smudge Cells Not Reportable 12/14/20 04:35 Toxic Granulation Not Reportable 12/14/20 04:35 Toxic Vacuolation Not Reportable 12/14/20 04:35 Dohle Bodies Not Reportable 12/14/20 04:35 Pelger-Huet Anomaly Not Reportable 12/14/20 04:35 Tony Rods Not Reportable 12/14/20 04:35 Platelet Estimate Consistent w auto 12/14/20 04:35 Clumped Platelets Not Reportable 12/14/20 04:35 Plt Clumps, EDTA Not Reportable 12/14/20 04:35 Large Platelets Not Reportable 12/14/20 04:35 Giant Platelets Not Reportable 12/14/20 04:35 Platelet Satelliting Not Reportable 12/14/20 04:35 Plt Morphology Comment Not Reportable 12/14/20 04:35 RBC Morphology Not Reportable 12/14/20 04:35 Dimorphic RBCs Not Reportable 12/14/20 04:35 Polychromasia Not Reportable 12/14/20 04:35 Hypochromasia Few 12/14/20 04:35 Poikilocytosis Not Reportable 12/14/20 04:35 Anisocytosis Few 12/14/20 04:35 Microcytosis Not Reportable 12/14/20 04:35 Macrocytosis Not Reportable 12/14/20 04:35 Spherocytes Not Reportable 12/14/20 04:35 Pappenheimer Bodies Not Reportable 12/14/20 04:35 Sickle Cells Not Reportable 12/14/20 04:35 Target Cells Not Reportable 12/14/20 04:35 Tear Drop Cells Not Reportable 12/14/20 04:35 Ovalocytes Not Reportable 12/14/20 04:35 Stomatocytes 1+ 12/03/20 04:35 Helmet Cells Not Reportable 12/14/20 04:35 Cab[place] Bodies Not Reportable 12/14/20 04:35 Hart Rings Not Reportable 12/14/20 04:35 Reliance Cells Not Reportable 12/14/20 04:35 Bite Cells Not Reportable 12/14/20 04:35 Crenated Cell Not Reportable 12/14/20 04:35 Elliptocytes Not Reportable 12/14/20 04:35 Acanthocytes (Spur) Not Reportable 12/14/20 04:35 Rouleaux Not Reportable 12/14/20 04:35 Hemoglobin C Crystals Not Reportable 12/14/20 04:35 Schistocytes Not Reportable 12/14/20 04:35 Malaria parasites Not Reportable 12/14/20 04:35 Yovani Bodies Not Reportable 12/14/20 04:35 Hem Pathologist Commnt No 12/14/20 04:35 D-Dimer 926.11 ng/mlDDU (0-234) H 11/26/20 06:04 ABG pH 7.442 (7.320-7.450) 12/16/20 03:54 POC ABG pCO2 63.6 mmHg (32.0-48.0) H 12/16/20 03:54 ABG pCO2 81.3 mm Hg 12/08/20 04:12 POC ABG pO2 55.0 mmHg (83-108) L 12/16/20 03:54 ABG pO2 69.7 mm Hg (80.0-90.0) L 12/08/20 04:12 POC ABG HCO3 42.4 12/16/20 03:54 ABG HCO3 50.1 mmol/L (20.0-26.0) H 12/08/20 04:12 ABG O2 Saturation 95.4 % (95.0-99.0) 12/08/20 04:12 ABG O2 Content 13.0 (0.0-44) 12/07/20 05:20 POC ABG Base Excess 15.7 12/16/20 03:54 ABG Base Excess 21.6 mmol/L (-2.0-3.0) H 12/08/20 04:12 ABG Hemoglobin 11.1 (12.0-17.5) L 12/16/20 03:54 ABG Oxyhemoglobin 87.3 (94-98) L 12/16/20 03:54 ABG Carboxyhemoglobin 2.0 % (0.0-5.0) 12/08/20 04:12 ABG Methemoglobin 0.3 (0.0-1.5) 12/16/20 03:54 ABG Sodium 130.7 mmol/L (136.0-145.0) L 12/16/20 03:54 ABG Potassium 4.0 mmol/L (3.40-4.50) 12/16/20 03:54 ABG Chloride 89.0 mmol/L (98-107) L 12/16/20 03:54 ABG Glucose 211 mg/dL (65-95) H 12/16/20 03:54 Oxyhemoglobin 93.2 % (95.0-99.0) L 12/08/20 04:12 Carboxyhemoglobin 1.3 (0.5-1.5) 12/16/20 03:54 FiO2 75.0 12/16/20 03:54 Sodium 134 mmol/L (137-145) L 12/16/20 04:46 Potassium 4.3 mmol/L (3.6-5.0) 12/16/20 04:46 Chloride 89.7 mmol/L (98-107) L 12/16/20 04:46 Carbon Dioxide 38 mmol/L (22-30) H 12/16/20 04:46 Anion Gap 11 mmol/L 12/16/20 04:46 BUN 9 mg/dL (9-20) 12/16/20 04:46 Creatinine < 0.2 mg/dL (0.8-1.3) L 12/16/20 04:46 Estimated GFR > 60 ml/min 12/16/20 04:46 BUN/Creatinine Ratio 45 % 12/16/20 04:46 Glucose 203 mg/dL (75-100) H 12/16/20 04:46 POC Glucose 155 mg/dL (70-105) H 12/16/20 05:34 Hemoglobin A1c 11.7 % (4-6) H 11/16/20 05:29 Lactic Acid 2.60 mmol/L (0.7-2.0) H* 11/16/20 05:29 Calcium 7.5 mg/dL (8.4-10.2) L 12/16/20 04:46 Phosphorus 2.90 mg/dL (2.5-4.5) 12/04/20 Unknown Magnesium 1.80 mg/dL (1.7-2.3) 12/14/20 04:35 Ferritin 778.8 ng/mL (30.0-300.0) H 11/26/20 04:00 Total Bilirubin 0.50 mg/dL (0.1-1.2) 12/13/20 11:30 AST 34 units/L (5-40) 12/13/20 11:30 ALT 61 units/L (7-56) H 12/13/20 11:30 Alkaline Phosphatase 117 units/L (35-129) 12/13/20 11:30 Lactate Dehydrogenase 288 units/L (91-180) H 11/26/20 04:00 Troponin T < 0.010 ng/mL (0.00-0.029) 12/11/20 06:30 C-Reactive Protein 1.40 mg/dL (0.00-1.30) H 11/26/20 04:00 NT-Pro-B Natriuret Pep 107.2 pg/mL (0-900) 11/17/20 10:21 Total Protein 5.7 g/dL (6.3-8.2) L 12/13/20 11:30 Albumin 2.3 g/dL (3.9-5) L 12/13/20 11:30 Albumin/Globulin Ratio 0.7 % 12/13/20 11:30 Triglycerides 150 mg/dL (2-149) H 12/12/20 05:16 Procalcitonin 0.16 ng/mL (<0.15) 12/12/20 05:16 Arterial Blood Glucose 211 mg/dL (65-95) H 12/16/20 03:54 Arterial Blood Ionized Calcium 4.3 mg/dL (4.6-5.3) L 12/16/20 03:54 Urine Color Faustina (Yellow) 11/16/20 01:45 Urine Turbidity Slightly-cloudy (Clear) 11/16/20 01:45 Urine pH 6.0 (5.0-7.0) 11/16/20 01:45 Ur Specific Brea 1.037 (1.003-1.030) H 11/16/20 01:45 Urine Protein 30 mg/dl mg/dL (Negative) 11/16/20 01:45 Urine Glucose (UA) >=500 mg/dL (Negative) 11/16/20 01:45 Urine Ketones 20 mg/dL (Negative) 11/16/20 01:45 Urine Blood Neg (Negative) 11/16/20 01:45 Urine Nitrite Neg (Negative) 11/16/20 01:45 Urine Bilirubin Neg (Negative) 11/16/20 01:45 Urine Urobilinogen 2.0 mg/dL (<2.0) 11/16/20 01:45 Ur Leukocyte Esterase Neg (Negative) 11/16/20 01:45 Urine WBC (Auto) 2.0 /HPF (0.0-6.0) 11/16/20 01:45 Urine RBC (Auto) 1.0 /HPF (0.0-6.0) 11/16/20 01:45 Urine Bacteria (Auto) 1+ /HPF (Negative) 11/16/20 01:45 Urine Mucus 3+ /HPF 11/16/20 01:45 Vancomycin Trough 4.0 ug/mL (5.0-20.0) L 11/29/20 15:40 Coronavirus (PCR) Positive (Negative) A 12/13/20 10:00 - Diagnostic Impressions Diagnostic Impressions: Echocardiogram 11/16/20 10:34 Transthoracic Echocardiogram Indication: Shortness of breath-COVID BP: 108/77 HR: 92 Conclusions *Global left ventricular systolic function is normal. *The estimated ejection fraction is 60-65%. *Mild to moderate concentric left ventricular hypertrophy is observed. *There is trace of mitral regurgitation. *There is mild to moderate tricuspid regurgitation. *There is evidence of mild pulmonary hypertension. *The right ventricular systolic pressure is calculated at 31 mmHg. Findings Left Ventricle: The left ventricular chamber size is normal. Mild to moderate concentric left ventricular hypertrophy is observed. Global left ventricular systolic function is normal. The estimated ejection fraction is 60-65%. Left Atrium: The left atrial chamber size is normal. Right Ventricle: The right ventricular cavity size is normal. The right ventricular global systolic function is normal. Right Atrium: The right atrial cavity size is normal. Aortic Valve: The aortic valve is trileaflet. There is no evidence of aortic regurgitation. There is no evidence of aortic stenosis. Mitral Valve: The mitral valve leaflets appear normal. There is trace of mitral regurgitation. There is no evidence of mitral stenosis. Tricuspid Valve: The tricuspid valve leaflets are normal. There is mild to moderate tricuspid regurgitation. The right ventricular systolic pressure is calculated at 31 mmHg. There is evidence of mild pulmonary hypertension. Pulmonic Valve: There is trace pulmonic regurgitation. Pericardium: There is no pericardial effusion. Aorta: There is no dilatation of the ascending aorta. There is no dilatation of the aortic root. Venous: The inferior vena cava appears normal in size. Measurements Chambers 2D Name Value Normal Range IVSd (2D) 0.81 cm (0.6 - 1.1) LVPWd (2D) 0.79 cm (0.6 - 1.1) LVIDd (2D) 4.22 cm (3.7 - 5.6) LVIDs (2D) 3.1 cm (2 - 3.8) LV FS (2D) 26.71 % - EF Teichholz (2D) 52.55 % - Ao root diameter (2D) 3.34 cm (2 - 3.7) Volumes/Mass Name Value Normal Range LA ESV SP 4CH (A/L) 10.87 ml - LA ESV SP 2CH (A/L) 18.74 ml - LA ESV BP (A/L) 16.38 ml - LA ESV BP (A/L) index 8.62 ml/m2 - LA ESV SP 4CH (MOD) 10.32 ml - LA ESV SP 2CH (MOD) 17.66 ml - LA ESV BP (MOD) 15.12 ml - LA ESV BP (MOD) index 7.96 ml/m2 - Diastolic/Systolic Function Name Value Normal Range MV E-wave Vmax 0.76 m/sec - MV deceleration time 133.63 msec - MV A-wave Vmax 1.1 m/sec - MV E:A ratio 0.69 ratio - Aortic Valve Name Value Normal Range AV Vmax 1.44 m/sec - AV VTI 22.94 cm - AV peak gradient 8.33 mmHg - AV mean gradient 4.73 mmHg - LVOT diameter 2.2 cm - LVOT Vmax 1.04 m/sec - LVOT VTI 18.88 cm - LVOT peak gradient 4.34 mmHg - LVOT mean gradient 2.31 mmHg - SV LVOT 72.05 ml - EVANGELISTA (continuity Vmax) 2.75 cm2 - EVANGELISTA (continuity VTI) 3.14 cm2 - Tricuspid Valve Name Value Normal Range TR Vmax 2.64 m/sec - TR peak gradient 28 mmHg - RAP 3 mmHg - RVSP 31 mmHg - Gupta/IV: Voiding Method Indwelling Catheter IV Catheter Type [Left Peripheral IV Antecubital] Active Medications - Current Medications Current Medications: Generic Name Dose Route Start Last Admin Trade Name Freq PRN Reason Stop Dose Admin Acetaminophen 650 mg 11/15/20 23:55 12/15/20 14:58 Acetaminophen 325 Mg Tab PO 650 mg Q4H PRN Administration Pain MILD(1-3)/Fever >100.5/BUTTS Lipase/Protease/Amylase 1 each 11/23/20 11:53 12/05/20 23:45 Lipase 10,500/Protease 25,000/Amylase 43,750 (Units) Dr Cap FEEDTUBE 1 each PRN PRN Administration For Clogged Feeding Tube Dextrose 25 ml 12/10/20 05:21 12/10/20 05:24 Dextrose 50% In Water (25gm) 50 Ml Syringe IV 25 ml Q30MIN PRN Administration Hypoglycemia Protocol Enoxaparin Sodium 40 mg 12/03/20 22:00 12/15/20 21:43 Enoxaparin 40 Mg/0.4 Ml Inj SUB-Q 40 mg QDAY@2200 RAEANN Administration Famotidine 20 mg 11/22/20 22:00 12/15/20 21:43 Famotidine 20 Mg/2 Ml Inj IV 20 mg BID RAEANN Administration Fentanyl 50 mcg 11/21/20 21:53 12/14/20 15:04 Fentanyl 100 Mcg/2 Ml Inj IV 50 mcg Q10MIN PRN Administration ANALGESIA Hydrophilic Ointment 1 applic 11/21/20 21:53 11/30/20 21:33 Lip Therapy Vaseline TP 1 applic Q2HR PRN Administration Dry Lips Fentanyl Citrate 2,000 mcg in 100 mls @ 3.625 mls/hr 11/21/20 22:00 12/16/20 01:14 Fentanyl Drip Premix IV 4 mcg/kg/hr TITR RAEANN 14.5 mls/hr Administration Protocol 1 MCG/KG/HR Midazolam HCl 100 mg/ Sodium 100 mls @ 2 mls/hr 11/21/20 22:00 12/15/20 23:45 Chloride IV 5 mg/hr TITR RAEANN 5 mls/hr Titration Protocol 2 MG/HR Norepinephrine 4 mg in 250 mls @ 7.5 mls/hr 11/22/20 17:00 12/16/20 00:49 Levophed Drip 4 Mg/Ns 250 Ml IV 10 mcg/min TITR RAEANN 37.5 mls/hr Administration Protocol 2 MCG/MIN Propofol 1,000 mg in 100 mls @ 2.175 mls/hr 11/27/20 12:00 12/11/20 17:55 Diprivan 10 Mg/Ml IV 0 mcg/kg/min TITR RAEANN 0 mls/hr Titration Protocol 5 MCG/KG/MIN Dexmedetomidine HCl 400 mcg/ 104 mls @ 4.441 mls/hr 12/10/20 13:00 12/16/20 01:10 Sodium Chloride IV 0.6 mcg/kg/hr TITRATE RAEANN 13.322 mls/hr Titration Protocol 0.2 MCG/KG/HR Insulin Glargine 5 units 12/14/20 22:00 12/15/20 21:43 Insulin Glargine 100 Units/Ml SUB-Q 5 units QHS [facility] Administration Insulin Human Lispro 0 unit 11/22/20 06:00 12/16/20 05:50 Insulin Lispro 100 Unit/Ml SUB-Q 3 unit Q6HR [facility] Administration Protocol Methylprednisolone Sodium Succinate 20 mg 12/15/20 10:00 12/15/20 10:26 Methylprednisolone Sod Succinate 40 Mg/1 Ml Inj IV 20 mg Q24HR RAEANN Administration Metoclopramide HCl 10 mg 11/15/20 23:55 Metoclopramide 10 Mg/2 Ml Inj IV Q6H PRN Nausea And Vomiting Multi-Ingred Cream/Lotion/Oil/Oint 1 applic 11/21/20 21:53 Mineral Oil/Petrolatum, White Ophth Oint 3.5 Gm OU Q4HR PRN Dry Eye(s) Ondansetron HCl 4 mg 11/15/20 23:55 Ondansetron 4 Mg/2 Ml Inj IV Q8H PRN Nausea And Vomiting Senna/Docusate Sodium 2 tab 12/03/20 13:00 12/15/20 21:43 Sennosides/Docusate Sodium 8.6/50 Mg Tab PO 2 tab BID RAEANN Administration Simple Syrup 15 ml 11/23/20 11:53 Simple Syrup 15 Ml FEEDTUBE PRN PRN Hypoglycemia Simple Syrup 30 ml 11/23/20 11:53 Simple Syrup 15 Ml FEEDTUBE PRN PRN Hypoglycemia Sodium Bicarbonate 325 mg 11/23/20 11:53 12/05/20 23:46 Sodium Bicarbonate 325 Mg Tab FEEDTUBE 325 mg PRN PRN Administration For Clogged Feeding Tube Sodium Chloride 10 ml 11/16/20 10:00 12/15/20 21:43 Sodium Chloride 0.9% 10 Ml Flush Syringe IV 10 ml BID AREANN Administration Sodium Chloride 10 ml 11/15/20 23:55 12/03/20 00:21 Sodium Chloride 0.9% 10 Ml Flush Syringe IV 10 ml PRN PRN Administration LINE FLUSH Nutrition/Malnutrition Assess - Dietary Evaluation Nutrition/Malnutrition Findings: Nutrition Notes Start: 11/20/20 12:03 Freq: Status: Active Protocol: Document 12/09/20 11:11 AL (Rec: 12/09/20 11:25 AL [id number]) Co-Sign 12/09/20 11:11 LP Nutrition Notes Initial or Follow up Reassessment Current Diagnosis Diabetes,Sepsis,Respiratory Failure Other Pertinent Diagnosis Bilat pneu, COVID-19 (+) Current Diet Glucerna 1.2 at 60 ml/hr Labs/Tests Na 134 Cr .3 Pertinent Medications Propofol at 13.05 ml/hr (344 kcal) Solumedrol Senokot S Height 5 ft 6 in Weight 85.4 kg Usual Body Weight 80.5 kg Carney Body Weight (kg) 64.54 BMI 30.4 Weight Status Overweight Subjective/Other Information F/U for TF tolerance. Pt tolerating TF at 60 ml/hr ( goal rate) Percent of energy/protein needs met: 100%/100% Burn Absent Trauma Absent GI Symptoms Last BM Difficulty In Swallowing,Chewing Food Allergy No Current % PO Negligible Minimum of two criteria Yes Energy Intake (severe) < or equal to 50% Estimated Energy Requirement > or equal to 5 days Interpretation of Weight Loss (severe) >2% in 1 week Fluid Accumulation Moderate to Severe (severe) #3 Nutrition Diagnosis Inadequate oral intake Diagnosis Progress(for reassessment Continues documentation) #2 Nutrition Diagnosis Malnutrition Diagnosis Progress(for reassessment Continues documentation) #1 Nutrition Diagnosis Unintended weight loss Diagnosis Progress(for reassessment Continues documentation) Is patient on ventilator? Yes Is Patient Ambulatory and/or Out of Bed No REE-([place] [place]-confined to bed) 1944.648 Kcal/Kg value to use for calculation 21 Approximate Energy Requirements Using 1793 kcal/Kg Calculation Used for Recommendations Kcal/kg Additional Notes Protein: 87-145 g/day (1.2-2g/ kg) Fluid: 1ml/kcal or per MD Nutrition Intervention Change Diet Order: Continue TF Nutrition Support: Glucerna 1.2 at 60 ml/hr. Flush 100 ml q4h Kcal 1,728 Protein (gm) 86 Fluid (mL) 1,159 Goal #1 TF tolerance Goal #2 Meet at least 75% of energy and protein needs via TF Anticipated Discharge Needs: Unknown at this time Follow-Up By: 12/16/20 Additional Comments FU for TF tolerance
[2020-12-15] MEDS: ACETAMINOPHEN 325 MG TAB PO PRN (14:58)
[2020-12-15] MEDS: ENOXAPARIN 40 MG/0.4 ML INJ SUB-Q SCH (21:43)
[2020-12-15] MEDS: INSULIN GLARGINE 100 UNITS/ML SUB-Q SCH (21:43)
[2020-12-16] MEDS: INSULIN LISPRO 100 UNIT/ML SUB-Q SCH ×4 (00:31→17:47)
[2020-12-16] MEDS: NORepinephrine/NS 4 MG-250 ML 4 MG/250 ML BAG IV SCH ×4 (00:49→21:23)
[2020-12-16] MEDS: fentaNYL DRIP Premix 2,000 MCG/100 ML BAG IV SCH ×4 (01:14→21:25)
[2020-12-16 06:37] LABS: Hematocrit 31.5 % (35.5-45.6); Hemoglobin 10.6 gm/dl (11.8-15.2); Mean Corpuscular HGB Conc 34 % (32-34); Mean Corpuscular Volume 90 fl (84-94); Platelet Count 317 K/mm3 (140-440); Red Blood Count 3.48 M/mm3 (3.65-5.03); Red Cell Distribution Width 15.8 % (13.2-15.2)
[2020-12-16 06:52] LABS: Blood Urea Nitrogen 9 mg/dL (9-20); Calcium 7.5 mg/dL (8.4-10.2); Hemolysis Index 25
[2020-12-16 06:53] LABS: BUN/Creatinine Ratio 45
[2020-12-16] MEDS: methylPREDNISolone Sod Succinate 40 MG/1 ML INJ IV SCH (09:02)
[2020-12-16] MEDS: SENNOSIDES/DOCUSATE SODIUM 8.6/50 MG TAB PO SCH ×2 (09:02→21:27)
--- NOTE | 2020-12-16 11:11 | Progress Note ---
Assessment and Plan 59 y/o male with acute respiratory failure, abnormal CXR and abnormal lab studies. 12/16/20: Back up to 100%. Once stabilized will attempt to wean back down. ABG in the am and may need to consider repeat ABG later this afternoon pending clinical state. Unable to prone given bilateral chest tubes. Prognosis remains guarded to poor. 12/15/20: Tolerating weaning from yesterday. RT to attempt to wean some more today. Kidney function remains unchanged. Guarded prognosis. 12/14/20: Unable to wean FiO2 today. Continue supportive measures. Great that his kidney function has maintained but given the amount of oxygen he continues to require, his chances of recovery continue to decrease. Family aware and will up date them as needed. Very very guarded prognosis. 12/13/20: WIll start Weaning FiO2 again tomorrow morning of PaO2 remains this good. Continue all other supportive measures. Guarded prognosis. Monitor renal function closely. 12/12/20: Long discussion with brother at door. Patient remains full code which is not unreasonable but family is realistic about outcome being poor. Will continue all supportive measures. IF clinical state worsens, will ask family to come back to see patient. Guarded Prognosis. 12/11/20: Will attempt to wean Diprovan off and increase precedex. Triglycerides were ok. IF we have to support with pressors we will but I have asked nursing to please be detailed in their checkouts as to why they did certain things with the continuous drips. Continue supportive measures. Brother is going to try to come and see him from [place] 12/10/20: No acute events overnight. Patient has had waxing and waning of the amount of oxygen he has required over the last 24-72 hours. I have a bad feeling that he is on the brink of cardiac arrest and this could happen at any moment. I am going to reach out to the brother today to explain to him my concerns. Patient is a full code. Very very guarded prognosis. 12/09/20: Repeat ABG later today. Wean FiO2 for sats >88%. Repeat CXR as well. With BP dropping could be relative adrenal insufficiency, will watch for now, however if pressor requirement increases would consider stress dose steroids and maybe volume replacement. Follow up cultures. Guarded prognosis. 12/08/20: Increase TV to 425. Drop FiO2 to 65% and wean for sats >88%. COntinue chest tubes. Change steroids to 20q12. 12/07/20: CXR is stable, no indication for another chest tube at this time. Will repeat ABG in 1 hour post change to 70% and wean accordingly. Dropping steroids to 20q8. Guarded prognosis. Same weaning parameters apply today as of 12/04/20 12/04/20: Continue to wean steroids to off. Continue to wean FiO2 for sats >88%. Keep PEEP at current level, would not feel comfortable weaning PEEP until FiO2 at 35-40%. Continue chest tubes to suction. PaO2 of >55, pH of >7.2 and sats >88% are acceptable. : Dropped steroids down to 40q8 and will start to wean from there. Continue to slowly wean FiO2 first, keep PEEP at current level. Spoke with Kehinde, please see my event note, who is the biological brother. He had no questions but thanked us for our care. Prognosis remains very very guarded. PaO2 of 55 and pH of >7.2 and sats of >88% are all acceptable. 12/02/20: Wean FiO2 for sats >88% and PaO2 >55. Unable to prone currently secondary to bilateral chest tubes. COntinue high dose steroids. CM To figure out who is the immediate next of kin that can make decisions and then we will discuss the current clinical situation with them. 12/01/20: Continue PEEP and FiO2 elevated to keep sats >88% and PaO2 >55. Small lung volumes and high PEEP. very very guarded prognosis. 11/30/20: Worsening hypoxemia. Chest tubes stable. Likely just worsening disease. Unable to prone now. Increase PEEP to 18 and FiO2 back up to 100. Continue 3 sedatives for RASS of -2. Obtain 12 lead to look at T waves as K was only 4.6 on yesterday. Guarded, guarded prognosis 11/29/20: Second chest tube in on yesterday. CXR is stable. ABG unchanged. Will likely increase PEEP now that chest tubes are in. No further paralytics. Still making good urine. Prognosis remains guarded. Will check chemistry to assess Potassium levels given peaked t's seen on monitor. 11/28/20: Second chest tube today. Once chest tube in, will likely increase PEEP to 18 and repeat gas about 2 hours after this. Continue paralytic today. No proning now that patient will have bilateral chest tubes. VEry guarded progn osis. 11/27/20: Spoke with surgery who have agreed to evaluate and placed chest tube on either right or left side pending CXR reading. Will monitor for 36-48 hours and if no resolution, will need chest tube placed on opposite side as well. Once placed, will likely paralyze again but hold on proning for now. Guarded prognosis. 11/26/20: Paralytics are off. Continue current level of sedation. Will prone for 12 hours today and repeat ABG in the am. Continue lung protective strategy. Guarded prognosis. 11/25/20: Prone again to 16 hours, will prone at 12-12:30. Continue paralytics for 24 more hours. Discussed the idea of permissive hypercapnea again today and as long as pH is above 7.2 no changes should be made to TV and or RR without discussing with physician. Continue to monitor urine output, guarded prognosis. Hold on lasix therapy today. 11/24/20: Prone again today. Will try 48 hours of paralyzing the patient to see if this will help with oxygenation. Will speak with RT's about permissive hypercapnea and that pH's of 7.2 and greater are ok. Continue high doses steroi ds. Prognosis is still very very guarded. If not improvement with paralytics, will attempt transfer. 11/23/20: Prone again today for 12 hours. Continue High Dose steroids. Hold on lasix given marginal BP's. Prognosis is very very guarded to poor. Will continue all supportive measures. If not able to wean from 100%, will attempt transfer for ECMO. 11/20/20: WIll change to solumedrol 60q6 today. Hold on lasix today. Given his increasing oxygen requirement, will likely end up intubated. OVerall prognosis is very poor. 11/19/20: lasix 40mg IV x1 today. Will speak with ID but may consider increasing steroids to see if this will help with oxygenation. Continue Remdesivir. Prognosis remains guarded. 11/18/20: Continue bipap, goal is to attempt to prevent prolong intubation for as long as possible. Lasix again today. Steroids and Remdesivir. Guarded Prognosis. 11/17/20: Continue bipap therapy. Monitor mental state. High risk for Intubation. Continue BID anticoagulation. Prone if able. BNP was elevated but not grossly elevated. Will still give lasix with hopes of achieving net negative state. STeroids and remdesivir. Overall prognosis is guarded, extremely guarded. 1. Pulm- Agree with concern for covid. Agree with empiric abx but procal is only mildly elevated. Await cultures. Continue bipap therapy for now but will need to monitor closely. [facility] has ordered CTA, but I spoke with pharmacy and we will empirically treat with BID lovenox therapy. COntinue empiric steroid therapy for COVID until studies back. Not sure that he will be able to prone on bipap therapy. Monitor volume status and run as dry as possible. 2. Renal-normal function but all electrolytes abnormal. HYponatremia and Hypochloremia volume up vs volume down. Sent BNP. Would suggest obtaning echo as well. Not sure what to make of elevated lactate unless that is from increased work of breathing or damage to other tissue unknown. May need to check LFT's and Coags as well. 3. Guarded Prognosis. CCT 31 minutes. Subjective Date of service: 12/16/20 Principal diagnosis: COVID-19 Interval history: Had been weaned down to 75% but now desatting and had to be bumped back up to 100%. Sedation increased last night. Pressor requirement is still the same. Objective Vital Signs - 12hr 12/15/20 12/15/20 12/16/20 23:30 23:53 00:00 Temperature 98.9 F Pulse Rate 102 H 105 H 96 H Pulse Rate [ 96 H From Monitor] Respiratory 27 H 20 Rate Blood Pressure 144/82 144/82 152/87 O2 Sat by Pulse 92 91 96 Oximetry 12/16/20 12/16/20 12/16/20 00:30 01:00 01:30 Temperature Pulse Rate 107 H 116 H 114 H Pulse Rate [ From Monitor] Respiratory 22 21 18 Rate Blood Pressure 136/91 141/89 144/84 O2 Sat by Pulse 95 94 93 Oximetry 12/16/20 12/16/20 12/16/20 02:00 02:30 03:00 Temperature Pulse Rate 108 H 94 H 94 H Pulse Rate [ From Monitor] Respiratory 18 30 H 22 Rate Blood Pressure 134/83 131/75 107/59 O2 Sat by Pulse 93 95 95 Oximetry 12/16/20 12/16/20 12/16/20 03:30 03:58 04:00 Temperature 99.4 F Pulse Rate 82 106 H Pulse Rate [ 104 H From Monitor] Respiratory 30 H 20 Rate Blood Pressure 104/65 104/65 O2 Sat by Pulse 92 90 Oximetry 12/16/20 12/16/20 12/16/20 04:30 05:00 05:30 Temperature Pulse Rate 82 86 83 Pulse Rate [ From Monitor] Respiratory 30 H 29 H 30 H Rate Blood Pressure 97/55 107/61 108/63 O2 Sat by Pulse 95 94 93 Oximetry 12/16/20 12/16/20 12/16/20 06:00 06:30 07:00 Temperature Pulse Rate 85 88 83 Pulse Rate [ From Monitor] Respiratory 30 H 23 23 Rate Blood Pressure 104/58 93/55 86/49 O2 Sat by Pulse 95 95 94 Oximetry 12/16/20 12/16/20 12/16/20 07:30 07:39 07:56 Temperature 99.4 F Pulse Rate 91 H 84 Pulse Rate [ From Monitor] Respiratory 17 Rate Blood Pressure 127/71 O2 Sat by Pulse 90 Oximetry 12/16/20 12/16/20 12/16/20 07:59 08:00 08:20 Temperature Pulse Rate 88 93 H Pulse Rate [ 84 From Monitor] Respiratory 27 H Rate Blood Pressure 117/69 120/67 O2 Sat by Pulse 95 95 Oximetry Constitutional: other (on vent orally intubated) ENT: other (Now intubated) Ascultation: Bilateral: rales, rhonchi Percussion: Bilateral: not dull Cardiovascular: regular rate and rhythm Gastrointestinal: soft, non-tender Neurologic: other (on vent) CBC and BMP: 12/16/20 04:46 12/16/20 04:46 ABG, PT/INR, D-dimer: ABG ABG pH 7.442 (7.320-7.450) 12/16/20 03:54 POC ABG pCO2 63.6 mmHg (32.0-48.0) H 12/16/20 03:54 ABG pCO2 81.3 mm Hg 12/08/20 04:12 POC ABG pO2 55.0 mmHg (83-108) L 12/16/20 03:54 ABG pO2 69.7 mm Hg (80.0-90.0) L 12/08/20 04:12 POC ABG HCO3 42.4 12/16/20 03:54 ABG O2 Saturation 95.4 % (95.0-99.0) 12/08/20 04:12 PT/INR, D-dimer D-Dimer 926.11 ng/mlDDU (0-234) H 11/26/20 06:04 Abnormal lab findings: Abnormal Labs 11/15/20 11/15/20 11/15/20 10:39 10:39 10:39 WBC 14.3 H RBC 5.17 H Hgb Hct RDW Plt Count Lymph % (Auto) 7.8 L [place] % (Auto) 7.6 H Lymph # (Auto) 1.1 L [place] # (Auto) 1.1 H Baso # (Auto) Seg Neutrophils % 83.3 H Seg Neuts % (Manual) Lymphocytes % (Manual) Seg Neutrophils # 11.9 H Seg Neutrophils # Man Lymphocytes # (Manual) D-Dimer ABG pH POC ABG pCO2 POC ABG pO2 ABG pO2 ABG HCO3 ABG O2 Saturation ABG Base Excess ABG Hemoglobin ABG Oxyhemoglobin ABG Sodium ABG Potassium ABG Chloride ABG Glucose Oxyhemoglobin Carboxyhemoglobin Sodium 128 L Potassium Chloride 96.0 L Carbon Dioxide BUN Creatinine 0.7 L Glucose 238 H POC Glucose Hemoglobin A1c Lactic Acid 4.10 H* Calcium 7.0 L Ferritin Total Bilirubin 1.40 H AST 49 H ALT 70 H Alkaline Phosphatase Lactate Dehydrogenase 663 H C-Reactive Protein 19.80 H Total Protein Albumin 2.9 L Triglycerides Arterial Blood Glucose Arterial Blood Ionized Calcium Ur Specific [place] Vancomycin Trough Coronavirus (PCR) 11/15/20 11/15/20 11/15/20 10:39 10:39 11:20 WBC RBC Hgb Hct RDW Plt Count Lymph % (Auto) [place] % (Auto) Lymph # (Auto) [place] # (Auto) Baso # (Auto) Seg Neutrophils % Seg Neuts % (Manual) Lymphocytes % (Manual) Seg Neutrophils # Seg Neutrophils # Man Lymphocytes # (Manual) D-Dimer > 72525 H ABG pH POC ABG pCO2 29.9 L POC ABG pO2 137.3 H ABG pO2 ABG HCO3 ABG O2 Saturation ABG Base Excess ABG Hemoglobin ABG Oxyhemoglobin ABG Sodium 126.5 L ABG Potassium ABG Chloride ABG Glucose 248 H Oxyhemoglobin Carboxyhemoglobin Sodium Potassium Chloride Carbon Dioxide BUN Creatinine Glucose POC Glucose Hemoglobin A1c Lactic Acid Calcium Ferritin 672.8 H Total Bilirubin AST ALT Alkaline Phosphatase Lactate Dehydrogenase C-Reactive Protein Total Protein Albumin Triglycerides Arterial Blood Glucose 248 H Arterial Blood Ionized Calcium 4.1 L Ur Specific [place] Vancomycin Trough Coronavirus (PCR) 11/15/20 11/15/20 11/16/20 13:41 23:41 01:45 WBC RBC Hgb Hct RDW Plt Count Lymph % (Auto) [place] % (Auto) Lymph # (Auto) [place] # (Auto) Baso # (Auto) Seg Neutrophils % Seg Neuts % (Manual) Lymphocytes % (Manual) Seg Neutrophils # Seg Neutrophils # Man Lymphocytes # (Manual) D-Dimer ABG pH POC ABG pCO2 POC ABG pO2 ABG pO2 ABG HCO3 ABG O2 Saturation ABG Base Excess ABG Hemoglobin ABG Oxyhemoglobin ABG Sodium ABG Potassium ABG Chloride ABG Glucose Oxyhemoglobin Carboxyhemoglobin Sodium Potassium Chloride Carbon Dioxide BUN Creatinine Glucose POC Glucose 284 H Hemoglobin A1c Lactic Acid 2.30 H* Calcium Ferritin Total Bilirubin AST ALT Alkaline Phosphatase Lactate Dehydrogenase C-Reactive Protein Total Protein Albumin Triglycerides Arterial Blood Glucose Arterial Blood Ionized Calcium Ur Specific [place] 1.037 H Vancomycin Trough Coronavirus (PCR) 11/16/20 11/16/20 11/16/20 05:29 05:29 05:29 WBC 12.9 H RBC Hgb Hct RDW Plt Count Lymph % (Auto) 4.5 L [place] % (Auto) Lymph # (Auto) 0.6 L [place] # (Auto) Baso # (Auto) 0.2 H Seg Neutrophils % 89.8 H Seg Neuts % (Manual) Lymphocytes % (Manual) Seg Neutrophils # 11.5 H Seg Neutrophils # Man Lymphocytes # (Manual) D-Dimer ABG pH POC ABG pCO2 POC ABG pO2 ABG pO2 ABG HCO3 ABG O2 Saturation ABG Base Excess ABG Hemoglobin ABG Oxyhemoglobin ABG Sodium ABG Potassium ABG Chloride ABG Glucose Oxyhemoglobin Carboxyhemoglobin Sodium 131 L Potassium Chloride Carbon Dioxide 21 L BUN 23 H Creatinine 0.6 L Glucose 342 H POC Glucose Hemoglobin A1c Lactic Acid 2.60 H* Calcium 7.0 L Ferritin Total Bilirubin AST ALT Alkaline Phosphatase Lactate Dehydrogenase C-Reactive Protein Total Protein Albumin 2.4 L Triglycerides Arterial Blood Glucose Arterial Blood Ionized Calcium Ur Specific [place] Vancomycin Trough Coronavirus (PCR) 11/16/20 11/16/20 11/16/20 05:29 08:11 12:11 WBC RBC Hgb Hct RDW Plt Count Lymph % (Auto) [place] % (Auto) Lymph # (Auto) [place] # (Auto) Baso # (Auto) Seg Neutrophils % Seg Neuts % (Manual) Lymphocytes % (Manual) Seg Neutrophils # Seg Neutrophils # Man Lymphocytes # (Manual) D-Dimer ABG pH POC ABG pCO2 POC ABG pO2 ABG pO2 ABG HCO3 ABG O2 Saturation ABG Base Excess ABG Hemoglobin ABG Oxyhemoglobin ABG Sodium ABG Potassium ABG Chloride ABG Glucose Oxyhemoglobin Carboxyhemoglobin Sodium Potassium Chloride Carbon Dioxide BUN Creatinine Glucose POC Glucose 329 H 320 H Hemoglobin A1c 11.7 H Lactic Acid Calcium Ferritin Total Bilirubin AST ALT Alkaline Phosphatase Lactate Dehydrogenase C-Reactive Protein Total Protein Albumin Triglycerides Arterial Blood Glucose Arterial Blood Ionized Calcium Ur Specific [place] Vancomycin Trough Coronavirus (PCR) 11/16/20 11/16/20 11/16/20 16:13 21:29 Unknown WBC RBC Hgb Hct RDW Plt Count Lymph % (Auto) [place] % (Auto) Lymph # (Auto) [place] # (Auto) Baso # (Auto) Seg Neutrophils % Seg Neuts % (Manual) Lymphocytes % (Manual) Seg Neutrophils # Seg Neutrophils # Man Lymphocytes # (Manual) D-Dimer ABG pH POC ABG pCO2 POC ABG pO2 ABG pO2 ABG HCO3 ABG O2 Saturation ABG Base Excess ABG Hemoglobin ABG Oxyhemoglobin ABG Sodium ABG Potassium ABG Chloride ABG Glucose Oxyhemoglobin Carboxyhemoglobin Sodium Potassium Chloride Carbon Dioxide BUN Creatinine Glucose POC Glucose 257 H 376 H Hemoglobin A1c Lactic Acid Calcium Ferritin Total Bilirubin AST ALT Alkaline Phosphatase Lactate Dehydrogenase C-Reactive Protein Total Protein Albumin Triglycerides Arterial Blood Glucose Arterial Blood Ionized Calcium Ur Specific [place] Vancomycin Trough Coronavirus (PCR) Positive A 11/17/20 11/17/20 11/17/20 07:42 12:07 17:25 WBC RBC Hgb Hct RDW Plt Count Lymph % (Auto) [place] % (Auto) Lymph # (Auto) [place] # (Auto) Baso # (Auto) Seg Neutrophils % Seg Neuts % (Manual) Lymphocytes % (Manual) Seg Neutrophils # Seg Neutrophils # Man Lymphocytes # (Manual) D-Dimer ABG pH POC ABG pCO2 POC ABG pO2 ABG pO2 ABG HCO3 ABG O2 Saturation ABG Base Excess ABG Hemoglobin ABG Oxyhemoglobin ABG Sodium ABG Potassium ABG Chloride ABG Glucose Oxyhemoglobin Carboxyhemoglobin Sodium Potassium Chloride Carbon Dioxide BUN Creatinine Glucose POC Glucose 231 H 380 H 302 H Hemoglobin A1c Lactic Acid Calcium Ferritin Total Bilirubin AST ALT Alkaline Phosphatase Lactate Dehydrogenase C-Reactive Protein Total Protein Albumin Triglycerides Arterial Blood Glucose Arterial Blood Ionized Calcium Ur Specific [place] Vancomycin Trough Coronavirus (PCR) 11/17/20 11/18/20 11/18/20 21:53 04:25 07:45 WBC RBC Hgb Hct RDW Plt Count Lymph % (Auto) [place] % (Auto) Lymph # (Auto) [place] # (Auto) Baso # (Auto) Seg Neutrophils % Seg Neuts % (Manual) Lymphocytes % (Manual) Seg Neutrophils # Seg Neutrophils # Man Lymphocytes # (Manual) D-Dimer ABG pH POC ABG pCO2 POC ABG pO2 ABG pO2 ABG HCO3 ABG O2 Saturation ABG Base Excess ABG Hemoglobin ABG Oxyhemoglobin ABG Sodium ABG Potassium ABG Chloride ABG Glucose Oxyhemoglobin Carboxyhemoglobin Sodium 136 L Potassium Chloride Carbon Dioxide BUN 24 H Creatinine 0.6 L Glucose 212 H POC Glucose 293 H 216 H Hemoglobin A1c Lactic Acid Calcium 7.4 L Ferritin Total Bilirubin AST 41 H ALT Alkaline Phosphatase 142 H Lactate Dehydrogenase C-Reactive Protein Total Protein Albumin 2.3 L Triglycerides Arterial Blood Glucose Arterial Blood Ionized Calcium Ur Specific [place] Vancomycin Trough Coronavirus (PCR) 11/18/20 11/18/20 11/18/20 12:28 15:58 21:37 WBC RBC Hgb Hct RDW Plt Count Lymph % (Auto) [place] % (Auto) Lymph # (Auto) [place] # (Auto) Baso # (Auto) Seg Neutrophils % Seg Neuts % (Manual) Lymphocytes % (Manual) Seg Neutrophils # Seg Neutrophils # Man Lymphocytes # (Manual) D-Dimer ABG pH POC ABG pCO2 POC ABG pO2 ABG pO2 ABG HCO3 ABG O2 Saturation ABG Base Excess ABG Hemoglobin ABG Oxyhemoglobin ABG Sodium ABG Potassium ABG Chloride ABG Glucose Oxyhemoglobin Carboxyhemoglobin Sodium Potassium Chloride Carbon Dioxide BUN Creatinine Glucose POC Glucose 165 H 220 H 311 H Hemoglobin A1c Lactic Acid Calcium Ferritin Total Bilirubin AST ALT Alkaline Phosphatase Lactate Dehydrogenase C-Reactive Protein Total Protein Albumin Triglycerides Arterial Blood Glucose Arterial Blood Ionized Calcium Ur Specific [place] Vancomycin Trough Coronavirus (PCR) 11/19/20 11/19/20 11/19/20 05:35 07:40 12:39 WBC RBC Hgb Hct RDW Plt Count Lymph % (Auto) [place] % (Auto) Lymph # (Auto) [place] # (Auto) Baso # (Auto) Seg Neutrophils % Seg Neuts % (Manual) Lymphocytes % (Manual) Seg Neutrophils # Seg Neutrophils # Man Lymphocytes # (Manual) D-Dimer ABG pH POC ABG pCO2 POC ABG pO2 ABG pO2 ABG HCO3 ABG O2 Saturation ABG Base Excess ABG Hemoglobin ABG Oxyhemoglobin ABG Sodium ABG Potassium ABG Chloride ABG Glucose Oxyhemoglobin Carboxyhemoglobin Sodium 132 L Potassium Chloride Carbon Dioxide BUN 25 H Creatinine 0.5 L Glucose 179 H POC Glucose 149 H 306 H Hemoglobin A1c Lactic Acid Calcium 7.5 L Ferritin Total Bilirubin AST ALT Alkaline Phosphatase 139 H Lactate Dehydrogenase C-Reactive Protein Total Protein Albumin 2.4 L Triglycerides Arterial Blood Glucose Arterial Blood Ionized Calcium Ur Specific [place] Vancomycin Trough Coronavirus (PCR) 11/19/20 11/19/20 11/20/20 16:17 21:25 08:30 WBC RBC Hgb Hct RDW Plt Count Lymph % (Auto) [place] % (Auto) Lymph # (Auto) [place] # (Auto) Baso # (Auto) Seg Neutrophils % Seg Neuts % (Manual) Lymphocytes % (Manual) Seg Neutrophils # Seg Neutrophils # Man Lymphocytes # (Manual) D-Dimer ABG pH POC ABG pCO2 POC ABG pO2 ABG pO2 ABG HCO3 ABG O2 Saturation ABG Base Excess ABG Hemoglobin ABG Oxyhemoglobin ABG Sodium ABG Potassium ABG Chloride ABG Glucose Oxyhemoglobin Carboxyhemoglobin Sodium Potassium Chloride Carbon Dioxide BUN Creatinine Glucose POC Glucose 364 H 347 H 141 H Hemoglobin A1c Lactic Acid Calcium Ferritin Total Bilirubin AST ALT Alkaline Phosphatase Lactate Dehydrogenase C-Reactive Protein Total Protein Albumin Triglycerides Arterial Blood Glucose Arterial Blood Ionized Calcium Ur Specific [place] Vancomycin Trough Coronavirus (PCR) 11/20/20 11/20/20 11/20/20 08:50 11:32 16:19 WBC RBC Hgb Hct RDW Plt Count Lymph % (Auto) [place] % (Auto) Lymph # (Auto) [place] # (Auto) Baso # (Auto) Seg Neutrophils % Seg Neuts % (Manual) Lymphocytes % (Manual) Seg Neutrophils # Seg Neutrophils # Man Lymphocytes # (Manual) D-Dimer ABG pH POC ABG pCO2 POC ABG pO2 ABG pO2 ABG HCO3 ABG O2 Saturation ABG Base Excess ABG Hemoglobin ABG Oxyhemoglobin ABG Sodium ABG Potassium ABG Chloride ABG Glucose Oxyhemoglobin Carboxyhemoglobin Sodium 132 L Potassium Chloride 97.6 L Carbon Dioxide BUN 26 H Creatinine 0.5 L Glucose 201 H POC Glucose 296 H 327 H Hemoglobin A1c Lactic Acid Calcium 7.9 L Ferritin Total Bilirubin AST ALT Alkaline Phosphatase 137 H Lactate Dehydrogenase C-Reactive Protein Total Protein Albumin 2.6 L Triglycerides Arterial Blood Glucose Arterial Blood Ionized Calcium Ur Specific [place] Vancomycin Trough Coronavirus (PCR) 11/20/20 11/21/20 11/21/20 22:09 07:59 13:51 WBC RBC Hgb Hct RDW Plt Count Lymph % (Auto) [place] % (Auto) Lymph # (Auto) [place] # (Auto) Baso # (Auto) Seg Neutrophils % Seg Neuts % (Manual) Lymphocytes % (Manual) Seg Neutrophils # Seg Neutrophils # Man Lymphocytes # (Manual) D-Dimer ABG pH POC ABG pCO2 POC ABG pO2 ABG pO2 ABG HCO3 ABG O2 Saturation ABG Base Excess ABG Hemoglobin ABG Oxyhemoglobin ABG Sodium ABG Potassium ABG Chloride ABG Glucose Oxyhemoglobin Carboxyhemoglobin Sodium Potassium Chloride Carbon Dioxide BUN Creatinine Glucose POC Glucose 311 H 218 H 304 H Hemoglobin A1c Lactic Acid Calcium Ferritin Total Bilirubin AST ALT Alkaline Phosphatase Lactate Dehydrogenase C-Reactive Protein Total Protein Albumin Triglycerides Arterial Blood Glucose Arterial Blood Ionized Calcium Ur Specific [place] Vancomycin Trough Coronavirus (PCR) 11/21/20 11/21/20 11/21/20 16:09 21:34 23:00 WBC RBC Hgb Hct RDW Plt Count Lymph % (Auto) [place] % (Auto) Lymph # (Auto) [place] # (Auto) Baso # (Auto) Seg Neutrophils % Seg Neuts % (Manual) Lymphocytes % (Manual) Seg Neutrophils # Seg Neutrophils # Man Lymphocytes # (Manual) D-Dimer ABG pH 7.206 L POC ABG pCO2 59.3 H POC ABG pO2 76.7 L ABG pO2 ABG HCO3 ABG O2 Saturation ABG Base Excess ABG Hemoglobin ABG Oxyhemoglobin ABG Sodium 133.1 L ABG Potassium ABG Chloride ABG Glucose 320 H Oxyhemoglobin Carboxyhemoglobin Sodium Potassium Chloride Carbon Dioxide BUN Creatinine Glucose POC Glucose 239 H 279 H Hemoglobin A1c Lactic Acid Calcium Ferritin Total Bilirubin AST ALT Alkaline Phosphatase Lactate Dehydrogenase C-Reactive Protein Total Protein Albumin Triglycerides Arterial Blood Glucose 320 H Arterial Blood Ionized Calcium Ur Specific [place] Vancomycin Trough Coronavirus (PCR) 11/22/20 11/22/20 11/22/20 04:52 04:52 04:52 WBC RBC Hgb Hct RDW Plt Count Lymph % (Auto) [place] % (Auto) Lymph # (Auto) [place] # (Auto) Baso # (Auto) Seg Neutrophils % Seg Neuts % (Manual) Lymphocytes % (Manual) Seg Neutrophils # Seg Neutrophils # Man Lymphocytes # (Manual) D-Dimer 1858.36 H ABG pH POC ABG pCO2 POC ABG pO2 ABG pO2 ABG HCO3 ABG O2 Saturation ABG Base Excess ABG Hemoglobin ABG Oxyhemoglobin ABG Sodium ABG Potassium ABG Chloride ABG Glucose Oxyhemoglobin Carboxyhemoglobin Sodium Potassium Chloride Carbon Dioxide BUN Creatinine Glucose POC Glucose Hemoglobin A1c Lactic Acid Calcium Ferritin 734.2 H Total Bilirubin AST ALT Alkaline Phosphatase Lactate Dehydrogenase 404 H C-Reactive Protein 2.80 H Total Protein Albumin Triglycerides Arterial Blood Glucose Arterial Blood Ionized Calcium Ur Specific [place] Vancomycin Trough Coronavirus (PCR) 11/22/20 11/22/20 11/22/20 05:12 05:39 11:50 WBC RBC Hgb Hct RDW Plt Count Lymph % (Auto) [place] % (Auto) Lymph # (Auto) [place] # (Auto) Baso # (Auto) Seg Neutrophils % Seg Neuts % (Manual) Lymphocytes % (Manual) Seg Neutrophils # Seg Neutrophils # Man Lymphocytes # (Manual) D-Dimer ABG pH POC ABG pCO2 POC ABG pO2 51.0 L ABG pO2 ABG HCO3 ABG O2 Saturation ABG Base Excess ABG Hemoglobin ABG Oxyhemoglobin ABG Sodium 131.2 L ABG Potassium 4.6 H ABG Chloride ABG Glucose 317 H Oxyhemoglobin Carboxyhemoglobin Sodium Potassium Chloride Carbon Dioxide BUN Creatinine Glucose POC Glucose 340 H 417 H Hemoglobin A1c Lactic Acid Calcium Ferritin Total Bilirubin AST ALT Alkaline Phosphatase Lactate Dehydrogenase C-Reactive Protein Total Protein Albumin Triglycerides Arterial Blood Glucose 317 H Arterial Blood Ionized Calcium 4.4 L Ur Specific [place] Vancomycin Trough Coronavirus (PCR) 11/22/20 11/22/20 11/22/20 12:22 12:22 17:10 WBC 14.4 H RBC Hgb Hct RDW Plt Count Lymph % (Auto) [place] % (Auto) Lymph # (Auto) [place] # (Auto) Baso # (Auto) Seg Neutrophils % Seg Neuts % (Manual) 98.0 H Lymphocytes % (Manual) Seg Neutrophils # Seg Neutrophils # Man 14.1 H Lymphocytes # (Manual) 0.0 L D-Dimer ABG pH POC ABG pCO2 POC ABG pO2 ABG pO2 ABG HCO3 ABG O2 Saturation ABG Base Excess ABG Hemoglobin ABG Oxyhemoglobin ABG Sodium ABG Potassium ABG Chloride ABG Glucose Oxyhemoglobin Carboxyhemoglobin Sodium 132 L Potassium Chloride Carbon Dioxide BUN 36 H Creatinine 0.6 L Glucose 219 H POC Glucose 157 H Hemoglobin A1c Lactic Acid Calcium 7.2 L Ferritin Total Bilirubin AST ALT Alkaline Phosphatase Lactate Dehydrogenase C-Reactive Protein Total Protein Albumin Triglycerides Arterial Blood Glucose Arterial Blood Ionized Calcium Ur Specific [place] Vancomycin Trough Coronavirus (PCR) 11/22/20 11/22/20 11/22/20 18:33 21:44 23:47 WBC RBC Hgb Hct RDW Plt Count Lymph % (Auto) [place] % (Auto) Lymph # (Auto) [place] # (Auto) Baso # (Auto) Seg Neutrophils % Seg Neuts % (Manual) Lymphocytes % (Manual) Seg Neutrophils # Seg Neutrophils # Man Lymphocytes # (Manual) D-Dimer ABG pH POC ABG pCO2 POC ABG pO2 60.8 L ABG pO2 ABG HCO3 ABG O2 Saturation ABG Base Excess ABG Hemoglobin ABG Oxyhemoglobin 88.1 L ABG Sodium 135.1 L ABG Potassium ABG Chloride ABG Glucose 141 H Oxyhemoglobin Carboxyhemoglobin Sodium Potassium Chloride Carbon Dioxide BUN Creatinine Glucose POC Glucose 117 H 123 H Hemoglobin A1c Lactic Acid Calcium Ferritin Total Bilirubin AST ALT Alkaline Phosphatase Lactate Dehydrogenase C-Reactive Protein Total Protein Albumin Triglycerides Arterial Blood Glucose 141 H Arterial Blood Ionized Calcium Ur Specific [place] Vancomycin Trough Coronavirus (PCR) 11/23/20 11/23/20 11/23/20 04:00 04:00 05:23 WBC 14.4 H RBC Hgb Hct RDW Plt Count Lymph % (Auto) [place] % (Auto) Lymph # (Auto) [place] # (Auto) Baso # (Auto) Seg Neutrophils % Seg Neuts % (Manual) Lymphocytes % (Manual) Seg Neutrophils # Seg Neutrophils # Man Lymphocytes # (Manual) D-Dimer ABG pH POC ABG pCO2 POC ABG pO2 ABG pO2 ABG HCO3 ABG O2 Saturation ABG Base Excess ABG Hemoglobin ABG Oxyhemoglobin ABG Sodium ABG Potassium ABG Chloride ABG Glucose Oxyhemoglobin Carboxyhemoglobin Sodium 136 L Potassium Chloride Carbon Dioxide BUN 33 H Creatinine 0.6 L Glucose 115 H POC Glucose 173 H Hemoglobin A1c Lactic Acid Calcium 7.1 L Ferritin Total Bilirubin AST 64 H ALT 75 H Alkaline Phosphatase Lactate Dehydrogenase C-Reactive Protein Total Protein 5.9 L D Albumin 2.4 L Triglycerides Arterial Blood Glucose Arterial Blood Ionized Calcium Ur Specific [place] Vancomycin Trough Coronavirus (PCR) 11/23/20 11/23/20 11/23/20 05:40 11:27 17:10 WBC RBC Hgb Hct RDW Plt Count Lymph % (Auto) [place] % (Auto) Lymph # (Auto) [place] # (Auto) Baso # (Auto) Seg Neutrophils % Seg Neuts % (Manual) Lymphocytes % (Manual) Seg Neutrophils # Seg Neutrophils # Man Lymphocytes # (Manual) D-Dimer ABG pH POC ABG pCO2 POC ABG pO2 56.5 L ABG pO2 ABG HCO3 ABG O2 Saturation ABG Base Excess ABG Hemoglobin ABG Oxyhemoglobin ABG Sodium ABG Potassium ABG Chloride 109.0 H ABG Glucose 114 H Oxyhemoglobin Carboxyhemoglobin Sodium Potassium Chloride Carbon Dioxide BUN Creatinine Glucose POC Glucose 114 H 136 H Hemoglobin A1c Lactic Acid Calcium Ferritin Total Bilirubin AST ALT Alkaline Phosphatase Lactate Dehydrogenase C-Reactive Protein Total Protein Albumin Triglycerides Arterial Blood Glucose 114 H Arterial Blood Ionized Calcium 4.5 L Ur Specific [place] Vancomycin Trough Coronavirus (PCR) 11/24/20 11/24/20 11/24/20 05:14 05:14 05:14 WBC RBC Hgb Hct RDW Plt Count Lymph % (Auto) [place] % (Auto) Lymph # (Auto) [place] # (Auto) Baso # (Auto) Seg Neutrophils % Seg Neuts % (Manual) Lymphocytes % (Manual) Seg Neutrophils # Seg Neutrophils # Man Lymphocytes # (Manual) D-Dimer 1433.39 H ABG pH POC ABG pCO2 POC ABG pO2 ABG pO2 ABG HCO3 ABG O2 Saturation ABG Base Excess ABG Hemoglobin ABG Oxyhemoglobin ABG Sodium ABG Potassium ABG Chloride ABG Glucose Oxyhemoglobin Carboxyhemoglobin Sodium Potassium Chloride Carbon Dioxide BUN Creatinine Glucose POC Glucose Hemoglobin A1c Lactic Acid Calcium Ferritin 997.5 H Total Bilirubin AST ALT Alkaline Phosphatase Lactate Dehydrogenase 463 H C-Reactive Protein Total Protein Albumin Triglycerides Arterial Blood Glucose Arterial Blood Ionized Calcium Ur Specific [place] Vancomycin Trough Coronavirus (PCR) 11/24/20 11/24/20 11/24/20 05:31 05:36 12:05 WBC RBC Hgb Hct RDW Plt Count Lymph % (Auto) [place] % (Auto) Lymph # (Auto) [place] # (Auto) Baso # (Auto) Seg Neutrophils % Seg Neuts % (Manual) Lymphocytes % (Manual) Seg Neutrophils # Seg Neutrophils # Man Lymphocytes # (Manual) D-Dimer ABG pH POC ABG pCO2 POC ABG pO2 57.2 L ABG pO2 ABG HCO3 ABG O2 Saturation ABG Base Excess ABG Hemoglobin ABG Oxyhemoglobin ABG Sodium ABG Potassium ABG Chloride ABG Glucose 180 H Oxyhemoglobin Carboxyhemoglobin Sodium Potassium Chloride Carbon Dioxide BUN Creatinine Glucose POC Glucose 199 H 143 H Hemoglobin A1c Lactic Acid Calcium Ferritin Total Bilirubin AST ALT Alkaline Phosphatase Lactate Dehydrogenase C-Reactive Protein Total Protein Albumin Triglycerides Arterial Blood Glucose 180 H Arterial Blood Ionized Calcium 4.5 L Ur Specific [place] Vancomycin Trough Coronavirus (PCR) 11/24/20 11/24/20 11/24/20 12:14 17:47 23:47 WBC RBC Hgb Hct RDW Plt Count Lymph % (Auto) [place] % (Auto) Lymph # (Auto) [place] # (Auto) Baso # (Auto) Seg Neutrophils % Seg Neuts % (Manual) Lymphocytes % (Manual) Seg Neutrophils # Seg Neutrophils # Man Lymphocytes # (Manual) D-Dimer ABG pH 7.261 L POC ABG pCO2 59.7 H POC ABG pO2 75.7 L ABG pO2 ABG HCO3 ABG O2 Saturation ABG Base Excess ABG Hemoglobin ABG Oxyhemoglobin 92.5 L ABG Sodium ABG Potassium ABG Chloride 108.0 H ABG Glucose 150 H Oxyhemoglobin Carboxyhemoglobin Sodium Potassium Chloride Carbon Dioxide BUN Creatinine Glucose POC Glucose 223 H 179 H Hemoglobin A1c Lactic Acid Calcium Ferritin Total Bilirubin AST ALT Alkaline Phosphatase Lactate Dehydrogenase C-Reactive Protein Total Protein Albumin Triglycerides Arterial Blood Glucose 150 H Arterial Blood Ionized Calcium Ur Specific [place] Vancomycin Trough Coronavirus (PCR) 11/25/20 11/25/20 11/25/20 03:29 05:07 05:15 WBC 13.9 H RBC Hgb Hct RDW Plt Count Lymph % (Auto) [place] % (Auto) Lymph # (Auto) [place] # (Auto) Baso # (Auto) Seg Neutrophils % Seg Neuts % (Manual) 97.0 H Lymphocytes % (Manual) Seg Neutrophils # Seg Neutrophils # Man 13.5 H Lymphocytes # (Manual) 0.0 L D-Dimer ABG pH 7.272 L POC ABG pCO2 69.0 H POC ABG pO2 132.9 H ABG pO2 ABG HCO3 ABG O2 Saturation ABG Base Excess ABG Hemoglobin ABG Oxyhemoglobin ABG Sodium ABG Potassium ABG Chloride ABG Glucose 174 H Oxyhemoglobin Carboxyhemoglobin Sodium Potassium Chloride Carbon Dioxide BUN Creatinine Glucose POC Glucose 168 H Hemoglobin A1c Lactic Acid Calcium Ferritin Total Bilirubin AST ALT Alkaline Phosphatase Lactate Dehydrogenase C-Reactive Protein Total Protein Albumin Triglycerides Arterial Blood Glucose 174 H Arterial Blood Ionized Calcium Ur Specific [place] Vancomycin Trough Coronavirus (PCR) 11/25/20 11/25/20 11/25/20 05:15 11:25 17:35 WBC RBC Hgb Hct RDW Plt Count Lymph % (Auto) [place] % (Auto) Lymph # (Auto) [place] # (Auto) Baso # (Auto) Seg Neutrophils % Seg Neuts % (Manual) Lymphocytes % (Manual) Seg Neutrophils # Seg Neutrophils # Man Lymphocytes # (Manual) D-Dimer ABG pH POC ABG pCO2 POC ABG pO2 ABG pO2 ABG HCO3 ABG O2 Saturation ABG Base Excess ABG Hemoglobin ABG Oxyhemoglobin ABG Sodium ABG Potassium ABG Chloride ABG Glucose Oxyhemoglobin Carboxyhemoglobin Sodium Potassium Chloride Carbon Dioxide BUN 29 H Creatinine 0.5 L Glucose 161 H POC Glucose 224 H 228 H Hemoglobin A1c Lactic Acid Calcium 7.8 L Ferritin Total Bilirubin AST 89 H ALT 129 H Alkaline Phosphatase Lactate Dehydrogenase C-Reactive Protein Total Protein 5.8 L Albumin 2.5 L Triglycerides Arterial Blood Glucose Arterial Blood Ionized Calcium Ur Specific [place] Vancomycin Trough Coronavirus (PCR) 11/25/20 11/25/20 11/26/20 20:45 23:28 04:00 WBC RBC Hgb Hct RDW Plt Count Lymph % (Auto) [place] % (Auto) Lymph # (Auto) [place] # (Auto) Baso # (Auto) Seg Neutrophils % Seg Neuts % (Manual) Lymphocytes % (Manual) Seg Neutrophils # Seg Neutrophils # Man Lymphocytes # (Manual) D-Dimer ABG pH POC ABG pCO2 POC ABG pO2 ABG pO2 ABG HCO3 ABG O2 Saturation ABG Base Excess ABG Hemoglobin ABG Oxyhemoglobin ABG Sodium ABG Potassium ABG Chloride ABG Glucose Oxyhemoglobin Carboxyhemoglobin Sodium Potassium Chloride Carbon Dioxide BUN Creatinine Glucose POC Glucose 177 H 243 H Hemoglobin A1c Lactic Acid Calcium Ferritin 778.8 H Total Bilirubin AST ALT Alkaline Phosphatase Lactate Dehydrogenase C-Reactive Protein Total Protein Albumin Triglycerides Arterial Blood Glucose Arterial Blood Ionized Calcium Ur Specific [place] Vancomycin Trough Coronavirus (PCR) 11/26/20 11/26/20 11/26/20 04:00 05:34 06:04 WBC RBC Hgb Hct RDW Plt Count Lymph % (Auto) [place] % (Auto) Lymph # (Auto) [place] # (Auto) Baso # (Auto) Seg Neutrophils % Seg Neuts % (Manual) Lymphocytes % (Manual) Seg Neutrophils # Seg Neutrophils # Man Lymphocytes # (Manual) D-Dimer 926.11 H ABG pH POC ABG pCO2 POC ABG pO2 ABG pO2 ABG HCO3 ABG O2 Saturation ABG Base Excess ABG Hemoglobin ABG Oxyhemoglobin ABG Sodium ABG Potassium ABG Chloride ABG Glucose Oxyhemoglobin Carboxyhemoglobin Sodium Potassium Chloride Carbon Dioxide 39 H D BUN 30 H Creatinine 0.5 L Glucose 193 H POC Glucose 178 H Hemoglobin A1c Lactic Acid Calcium 7.7 L Ferritin Total Bilirubin AST 65 H ALT 132 H Alkaline Phosphatase Lactate Dehydrogenase 288 H C-Reactive Protein 1.40 H Total Protein 5.7 L Albumin 2.4 L Triglycerides Arterial Blood Glucose Arterial Blood Ionized Calcium Ur Specific [place] Vancomycin Trough Coronavirus (PCR) 11/26/20 11/26/20 11/26/20 06:04 08:47 11:20 WBC 12.4 H RBC Hgb Hct RDW Plt Count Lymph % (Auto) [place] % (Auto) Lymph # (Auto) [place] # (Auto) Baso # (Auto) Seg Neutrophils % Seg Neuts % (Manual) 98.0 H Lymphocytes % (Manual) 1.0 L Seg Neutrophils # Seg Neutrophils # Man 12.2 H Lymphocytes # (Manual) 0.1 L D-Dimer ABG pH POC ABG pCO2 75.2 H POC ABG pO2 61.9 L ABG pO2 ABG HCO3 ABG O2 Saturation ABG Base Excess ABG Hemoglobin ABG Oxyhemoglobin 90.3 L ABG Sodium ABG Potassium ABG Chloride ABG Glucose 243 H Oxyhemoglobin Carboxyhemoglobin Sodium Potassium Chloride Carbon Dioxide BUN Creatinine Glucose POC Glucose 255 H Hemoglobin A1c Lactic Acid Calcium Ferritin Total Bilirubin AST ALT Alkaline Phosphatase Lactate Dehydrogenase C-Reactive Protein Total Protein Albumin Triglycerides Arterial Blood Glucose 243 H Arterial Blood Ionized Calcium Ur Specific [place] Vancomycin Trough Coronavirus (PCR) 11/26/20 11/26/20 11/26/20 16:20 17:15 23:41 WBC RBC Hgb Hct RDW Plt Count Lymph % (Auto) [place] % (Auto) Lymph # (Auto) [place] # (Auto) Baso # (Auto) Seg Neutrophils % Seg Neuts % (Manual) Lymphocytes % (Manual) Seg Neutrophils # Seg Neutrophils # Man Lymphocytes # (Manual) D-Dimer ABG pH POC ABG pCO2 66.6 H POC ABG pO2 78.1 L ABG pO2 ABG HCO3 ABG O2 Saturation ABG Base Excess ABG Hemoglobin ABG Oxyhemoglobin ABG Sodium ABG Potassium ABG Chloride ABG Glucose 244 H Oxyhemoglobin Carboxyhemoglobin Sodium Potassium Chloride Carbon Dioxide BUN Creatinine Glucose POC Glucose 219 H 210 H Hemoglobin A1c Lactic Acid Calcium Ferritin Total Bilirubin AST ALT Alkaline Phosphatase Lactate Dehydrogenase C-Reactive Protein Total Protein Albumin Triglycerides Arterial Blood Glucose 244 H Arterial Blood Ionized Calcium Ur Specific [place] Vancomycin Trough Coronavirus (PCR) 11/27/20 11/27/20 11/27/20 04:46 05:38 06:25 WBC 13.8 H RBC Hgb Hct RDW Plt Count Lymph % (Auto) 2.0 L [place] % (Auto) Lymph # (Auto) 0.3 L [place] # (Auto) Baso # (Auto) Seg Neutrophils % Seg Neuts % (Manual) 96.0 H Lymphocytes % (Manual) Seg Neutrophils # 12.7 H Seg Neutrophils # Man 13.2 H Lymphocytes # (Manual) 0.0 L D-Dimer ABG pH POC ABG pCO2 63.0 H POC ABG pO2 53.6 L ABG pO2 ABG HCO3 ABG O2 Saturation ABG Base Excess ABG Hemoglobin ABG Oxyhemoglobin 87.8 L ABG Sodium 115.4 L ABG Potassium ABG Chloride ABG Glucose 219 H Oxyhemoglobin Carboxyhemoglobin Sodium Potassium Chloride Carbon Dioxide BUN Creatinine Glucose POC Glucose 227 H Hemoglobin A1c Lactic Acid Calcium Ferritin Total Bilirubin AST ALT Alkaline Phosphatase Lactate Dehydrogenase C-Reactive Protein Total Protein Albumin Triglycerides Arterial Blood Glucose 219 H Arterial Blood Ionized Calcium Ur Specific [place] Vancomycin Trough Coronavirus (PCR) 11/27/20 11/27/20 11/27/20 06:25 18:05 23:29 WBC RBC Hgb Hct RDW Plt Count Lymph % (Auto) [place] % (Auto) Lymph # (Auto) [place] # (Auto) Baso # (Auto) Seg Neutrophils % Seg Neuts % (Manual) Lymphocytes % (Manual) Seg Neutrophils # Seg Neutrophils # Man Lymphocytes # (Manual) D-Dimer ABG pH POC ABG pCO2 POC ABG pO2 ABG pO2 ABG HCO3 ABG O2 Saturation ABG Base Excess ABG Hemoglobin ABG Oxyhemoglobin ABG Sodium ABG Potassium ABG Chloride ABG Glucose Oxyhemoglobin Carboxyhemoglobin Sodium Potassium Chloride Carbon Dioxide 38 H BUN 34 H Creatinine 0.4 L Glucose 243 H POC Glucose 329 H 227 H Hemoglobin A1c Lactic Acid Calcium 7.9 L Ferritin Total Bilirubin AST 50 H ALT 110 H Alkaline Phosphatase Lactate Dehydrogenase C-Reactive Protein Total Protein 6.1 L Albumin 2.4 L Triglycerides Arterial Blood Glucose Arterial Blood Ionized Calcium Ur Specific [place] Vancomycin Trough Coronavirus (PCR) 11/28/20 11/28/20 11/28/20 03:45 03:45 03:46 WBC 12.2 H RBC Hgb Hct RDW Plt Count Lymph % (Auto) [place] % (Auto) Lymph # (Auto) [place] # (Auto) Baso # (Auto) Seg Neutrophils % Seg Neuts % (Manual) 93.0 H Lymphocytes % (Manual) 2.0 L Seg Neutrophils # Seg Neutrophils # Man 11.3 H Lymphocytes # (Manual) 0.2 L D-Dimer ABG pH POC ABG pCO2 68.4 H POC ABG pO2 55.4 L ABG pO2 ABG HCO3 ABG O2 Saturation ABG Base Excess ABG Hemoglobin ABG Oxyhemoglobin ABG Sodium ABG Potassium ABG Chloride ABG Glucose 197 H Oxyhemoglobin Carboxyhemoglobin Sodium Potassium Chloride Carbon Dioxide 36 H BUN 37 H Creatinine 0.4 L Glucose 194 H POC Glucose Hemoglobin A1c Lactic Acid Calcium 8.1 L Ferritin Total Bilirubin AST ALT 86 H Alkaline Phosphatase Lactate Dehydrogenase C-Reactive Protein Total Protein 6.0 L Albumin 2.3 L Triglycerides Arterial Blood Glucose 197 H Arterial Blood Ionized Calcium Ur Specific [place] Vancomycin Trough Coronavirus (PCR) 11/28/20 11/28/20 11/29/20 05:24 12:21 04:41 WBC RBC Hgb Hct RDW Plt Count Lymph % (Auto) [place] % (Auto) Lymph # (Auto) [place] # (Auto) Baso # (Auto) Seg Neutrophils % Seg Neuts % (Manual) Lymphocytes % (Manual) Seg Neutrophils # Seg Neutrophils # Man Lymphocytes # (Manual) D-Dimer ABG pH POC ABG pCO2 55.1 H POC ABG pO2 53.6 L ABG pO2 ABG HCO3 ABG O2 Saturation ABG Base Excess ABG Hemoglobin ABG Oxyhemoglobin 87.1 L ABG Sodium 131.2 L ABG Potassium ABG Chloride ABG Glucose 164 H Oxyhemoglobin Carboxyhemoglobin Sodium Potassium Chloride Carbon Dioxide BUN Creatinine Glucose POC Glucose 173 H 126 H Hemoglobin A1c Lactic Acid Calcium Ferritin Total Bilirubin AST ALT Alkaline Phosphatase Lactate Dehydrogenase C-Reactive Protein Total Protein Albumin Triglycerides Arterial Blood Glucose 164 H Arterial Blood Ionized Calcium 4.4 L Ur Specific [place] Vancomycin Trough Coronavirus (PCR) 11/29/20 11/29/20 11/29/20 05:29 12:41 13:28 WBC RBC Hgb Hct RDW Plt Count Lymph % (Auto) [place] % (Auto) Lymph # (Auto) [place] # (Auto) Baso # (Auto) Seg Neutrophils % Seg Neuts % (Manual) Lymphocytes % (Manual) Seg Neutrophils # Seg Neutrophils # Man Lymphocytes # (Manual) D-Dimer ABG pH POC ABG pCO2 POC ABG pO2 ABG pO2 ABG HCO3 ABG O2 Saturation ABG Base Excess ABG Hemoglobin ABG Oxyhemoglobin ABG Sodium ABG Potassium ABG Chloride ABG Glucose Oxyhemoglobin Carboxyhemoglobin Sodium Potassium Chloride Carbon Dioxide 40 H BUN 32 H Creatinine 0.4 L Glucose 274 H POC Glucose 173 H 257 H Hemoglobin A1c Lactic Acid Calcium 7.2 L Ferritin Total Bilirubin AST 57 H ALT 102 H Alkaline Phosphatase Lactate Dehydrogenase C-Reactive Protein Total Protein 5.7 L Albumin 2.1 L Triglycerides Arterial Blood Glucose Arterial Blood Ionized Calcium Ur Specific [place] Vancomycin Trough Coronavirus (PCR) 11/29/20 11/29/20 11/29/20 15:40 17:36 21:26 WBC RBC Hgb Hct RDW Plt Count Lymph % (Auto) [place] % (Auto) Lymph # (Auto) [place] # (Auto) Baso # (Auto) Seg Neutrophils % Seg Neuts % (Manual) Lymphocytes % (Manual) Seg Neutrophils # Seg Neutrophils # Man Lymphocytes # (Manual) D-Dimer ABG pH POC ABG pCO2 POC ABG pO2 ABG pO2 ABG HCO3 ABG O2 Saturation ABG Base Excess ABG Hemoglobin ABG Oxyhemoglobin ABG Sodium ABG Potassium ABG Chloride ABG Glucose Oxyhemoglobin Carboxyhemoglobin Sodium Potassium Chloride Carbon Dioxide BUN Creatinine Glucose POC Glucose 240 H 244 H Hemoglobin A1c Lactic Acid Calcium Ferritin Total Bilirubin AST ALT Alkaline Phosphatase Lactate Dehydrogenase C-Reactive Protein Total Protein Albumin Triglycerides Arterial Blood Glucose Arterial Blood Ionized Calcium Ur Specific [place] Vancomycin Trough 4.0 L Coronavirus (PCR) 11/29/20 11/30/20 11/30/20 23:26 03:30 03:30 WBC RBC Hgb Hct RDW Plt Count Lymph % (Auto) [place] % (Auto) Lymph # (Auto) [place] # (Auto) Baso # (Auto) Seg Neutrophils % Seg Neuts % (Manual) 97.0 H Lymphocytes % (Manual) 1.0 L Seg Neutrophils # Seg Neutrophils # Man 9.9 H Lymphocytes # (Manual) 0.1 L D-Dimer ABG pH POC ABG pCO2 POC ABG pO2 ABG pO2 ABG HCO3 ABG O2 Saturation ABG Base Excess ABG Hemoglobin ABG Oxyhemoglobin ABG Sodium ABG Potassium ABG Chloride ABG Glucose Oxyhemoglobin Carboxyhemoglobin Sodium Potassium Chloride Carbon Dioxide 38 H BUN 34 H Creatinine 0.4 L Glucose 305 H POC Glucose 283 H Hemoglobin A1c Lactic Acid Calcium 7.6 L Ferritin Total Bilirubin AST ALT 89 H Alkaline Phosphatase Lactate Dehydrogenase C-Reactive Protein Total Protein 6.0 L Albumin 2.3 L Triglycerides Arterial Blood Glucose Arterial Blood Ionized Calcium Ur Specific [place] Vancomycin Trough Coronavirus (PCR) 11/30/20 11/30/20 11/30/20 03:57 05:22 12:05 WBC RBC Hgb Hct RDW Plt Count Lymph % (Auto) [place] % (Auto) Lymph # (Auto) [place] # (Auto) Baso # (Auto) Seg Neutrophils % Seg Neuts % (Manual) Lymphocytes % (Manual) Seg Neutrophils # Seg Neutrophils # Man Lymphocytes # (Manual) D-Dimer ABG pH POC ABG pCO2 60.8 H POC ABG pO2 51.1 L ABG pO2 ABG HCO3 ABG O2 Saturation ABG Base Excess ABG Hemoglobin ABG Oxyhemoglobin 84.6 L ABG Sodium ABG Potassium ABG Chloride ABG Glucose 315 H Oxyhemoglobin Carboxyhemoglobin Sodium Potassium Chloride Carbon Dioxide BUN Creatinine Glucose POC Glucose 295 H 413 H Hemoglobin A1c Lactic Acid Calcium Ferritin Total Bilirubin AST ALT Alkaline Phosphatase Lactate Dehydrogenase C-Reactive Protein Total Protein Albumin Triglycerides Arterial Blood Glucose 315 H Arterial Blood Ionized Calcium 4.5 L Ur Specific [place] Vancomycin Trough Coronavirus (PCR) 11/30/20 11/30/20 12/01/20 17:24 23:25 02:14 WBC RBC Hgb Hct RDW Plt Count Lymph % (Auto) [place] % (Auto) Lymph # (Auto) [place] # (Auto) Baso # (Auto) Seg Neutrophils % Seg Neuts % (Manual) Lymphocytes % (Manual) Seg Neutrophils # Seg Neutrophils # Man Lymphocytes # (Manual) D-Dimer ABG pH 7.278 L POC ABG pCO2 78.1 H POC ABG pO2 79.5 L ABG pO2 ABG HCO3 ABG O2 Saturation ABG Base Excess ABG Hemoglobin 11.6 L ABG Oxyhemoglobin ABG Sodium 134.5 L ABG Potassium 4.6 H ABG Chloride ABG Glucose 286 H Oxyhemoglobin Carboxyhemoglobin Sodium Potassium Chloride Carbon Dioxide BUN Creatinine Glucose POC Glucose 305 H 302 H Hemoglobin A1c Lactic Acid Calcium Ferritin Total Bilirubin AST ALT Alkaline Phosphatase Lactate Dehydrogenase C-Reactive Protein Total Protein Albumin Triglycerides Arterial Blood Glucose 286 H Arterial Blood Ionized Calcium Ur Specific [place] Vancomycin Trough Coronavirus (PCR) 12/01/20 12/01/20 12/01/20 03:35 03:35 05:22 WBC 13.4 H RBC 3.54 L Hgb 10.4 L Hct 31.8 L RDW Plt Count Lymph % (Auto) [place] % (Auto) Lymph # (Auto) [place] # (Auto) Baso # (Auto) Seg Neutrophils % Seg Neuts % (Manual) 95.0 H Lymphocytes % (Manual) 3.0 L Seg Neutrophils # Seg Neutrophils # Man 12.7 H Lymphocytes # (Manual) 0.4 L D-Dimer ABG pH POC ABG pCO2 POC ABG pO2 ABG pO2 ABG HCO3 ABG O2 Saturation ABG Base Excess ABG Hemoglobin ABG Oxyhemoglobin ABG Sodium ABG Potassium ABG Chloride ABG Glucose Oxyhemoglobin Carboxyhemoglobin Sodium Potassium Chloride Carbon Dioxide 35 H BUN 34 H Creatinine 0.5 L Glucose 279 H POC Glucose 259 H Hemoglobin A1c Lactic Acid Calcium 7.6 L Ferritin Total Bilirubin AST ALT 63 H Alkaline Phosphatase Lactate Dehydrogenase C-Reactive Protein Total Protein 4.8 L Albumin 2.1 L Triglycerides Arterial Blood Glucose Arterial Blood Ionized Calcium Ur Specific [place] Vancomycin Trough Coronavirus (PCR) 02/12/01/20 12/01/20 12:05 17:40 23:46 WBC RBC Hgb Hct RDW Plt Count Lymph % (Auto) [place] % (Auto) Lymph # (Auto) [place] # (Auto) Baso # (Auto) Seg Neutrophils % Seg Neuts % (Manual) Lymphocytes % (Manual) Seg Neutrophils # Seg Neutrophils # Man Lymphocytes # (Manual) D-Dimer ABG pH POC ABG pCO2 POC ABG pO2 ABG pO2 ABG HCO3 ABG O2 Saturation ABG Base Excess ABG Hemoglobin ABG Oxyhemoglobin ABG Sodium ABG Potassium ABG Chloride ABG Glucose Oxyhemoglobin Carboxyhemoglobin Sodium Potassium Chloride Carbon Dioxide BUN Creatinine Glucose POC Glucose 197 H 244 H 284 H Hemoglobin A1c Lactic Acid Calcium Ferritin Total Bilirubin AST ALT Alkaline Phosphatase Lactate Dehydrogenase C-Reactive Protein Total Protein Albumin Triglycerides Arterial Blood Glucose Arterial Blood Ionized Calcium Ur Specific [place] Vancomycin Trough Coronavirus (PCR) 12/02/20 12/02/20 12/02/20 02:14 03:03 04:11 WBC 16.5 H RBC 3.55 L Hgb 10.5 L Hct 31.9 L RDW Plt Count Lymph % (Auto) [place] % (Auto) Lymph # (Auto) [place] # (Auto) Baso # (Auto) Seg Neutrophils % Seg Neuts % (Manual) 90.0 H Lymphocytes % (Manual) 3.0 L Seg Neutrophils # Seg Neutrophils # Man 14.9 H Lymphocytes # (Manual) 0.5 L D-Dimer ABG pH POC ABG pCO2 74.8 H POC ABG pO2 58.9 L ABG pO2 ABG HCO3 ABG O2 Saturation ABG Base Excess ABG Hemoglobin 11.5 L ABG Oxyhemoglobin ABG Sodium ABG Potassium ABG Chloride ABG Glucose 264 H Oxyhemoglobin Carboxyhemoglobin Sodium Potassium Chloride Carbon Dioxide 37 H BUN 30 H Creatinine 0.4 L Glucose 245 H POC Glucose Hemoglobin A1c Lactic Acid Calcium 7.5 L Ferritin Total Bilirubin AST ALT Alkaline Phosphatase Lactate Dehydrogenase C-Reactive Protein Total Protein 5.2 L Albumin 2.2 L Triglycerides Arterial Blood Glucose 264 H Arterial Blood Ionized Calcium 4.5 L Ur Specific [place] Vancomycin Trough Coronavirus (PCR) 12/02/20 12/02/20 12/02/20 05:19 11:46 17:52 WBC RBC Hgb Hct RDW Plt Count Lymph % (Auto) [place] % (Auto) Lymph # (Auto) [place] # (Auto) Baso # (Auto) Seg Neutrophils % Seg Neuts % (Manual) Lymphocytes % (Manual) Seg Neutrophils # Seg Neutrophils # Man Lymphocytes # (Manual) D-Dimer ABG pH POC ABG pCO2 POC ABG pO2 ABG pO2 ABG HCO3 ABG O2 Saturation ABG Base Excess ABG Hemoglobin ABG Oxyhemoglobin ABG Sodium ABG Potassium ABG Chloride ABG Glucose Oxyhemoglobin Carboxyhemoglobin Sodium Potassium Chloride Carbon Dioxide BUN Creatinine Glucose POC Glucose 238 H 236 H 233 H Hemoglobin A1c Lactic Acid Calcium Ferritin Total Bilirubin AST ALT Alkaline Phosphatase Lactate Dehydrogenase C-Reactive Protein Total Protein Albumin Triglycerides Arterial Blood Glucose Arterial Blood Ionized Calcium Ur Specific [place] Vancomycin Trough Coronavirus (PCR) 12/02/20 12/03/20 12/03/20 23:23 03:21 04:35 WBC RBC Hgb Hct RDW Plt Count 112 L Lymph % (Auto) [place] % (Auto) Lymph # (Auto) [place] # (Auto) Baso # (Auto) Seg Neutrophils % Seg Neuts % (Manual) 93.0 H Lymphocytes % (Manual) 4.0 L Seg Neutrophils # Seg Neutrophils # Man 9.1 H Lymphocytes # (Manual) 0.4 L D-Dimer ABG pH 7.299 L POC ABG pCO2 82.1 H POC ABG pO2 62.4 L ABG pO2 ABG HCO3 ABG O2 Saturation ABG Base Excess ABG Hemoglobin 11.5 L ABG Oxyhemoglobin 89.6 L ABG Sodium 134.3 L ABG Potassium ABG Chloride 95.0 L ABG Glucose 203 H Oxyhemoglobin Carboxyhemoglobin Sodium Potassium Chloride Carbon Dioxide BUN Creatinine Glucose POC Glucose 213 H Hemoglobin A1c Lactic Acid Calcium Ferritin Total Bilirubin AST ALT Alkaline Phosphatase Lactate Dehydrogenase C-Reactive Protein Total Protein Albumin Triglycerides Arterial Blood Glucose 203 H Arterial Blood Ionized Calcium 4.5 L Ur Specific [place] Vancomycin Trough Coronavirus (PCR) 12/03/20 12/03/20 12/03/20 04:35 05:42 11:28 WBC RBC Hgb Hct RDW Plt Count Lymph % (Auto) [place] % (Auto) Lymph # (Auto) [place] # (Auto) Baso # (Auto) Seg Neutrophils % Seg Neuts % (Manual) Lymphocytes % (Manual) Seg Neutrophils # Seg Neutrophils # Man Lymphocytes # (Manual) D-Dimer ABG pH POC ABG pCO2 POC ABG pO2 ABG pO2 ABG HCO3 ABG O2 Saturation ABG Base Excess ABG Hemoglobin ABG Oxyhemoglobin ABG Sodium ABG Potassium ABG Chloride ABG Glucose Oxyhemoglobin Carboxyhemoglobin Sodium Potassium Chloride 97.8 L Carbon Dioxide 43 H* BUN 25 H Creatinine 0.3 L Glucose 214 H POC Glucose 193 H 211 H Hemoglobin A1c Lactic Acid Calcium 7.7 L Ferritin Total Bilirubin AST ALT 63 H Alkaline Phosphatase 132 H Lactate Dehydrogenase C-Reactive Protein Total Protein 5.1 L Albumin 2.4 L Triglycerides Arterial Blood Glucose Arterial Blood Ionized Calcium Ur Specific [place] Vancomycin Trough Coronavirus (PCR) 12/03/20 12/03/20 12/04/20 17:45 23:57 00:11 WBC RBC Hgb Hct RDW Plt Count Lymph % (Auto) [place] % (Auto) Lymph # (Auto) [place] # (Auto) Baso # (Auto) Seg Neutrophils % Seg Neuts % (Manual) Lymphocytes % (Manual) Seg Neutrophils # Seg Neutrophils # Man Lymphocytes # (Manual) D-Dimer ABG pH POC ABG pCO2 POC ABG pO2 ABG pO2 ABG HCO3 ABG O2 Saturation ABG Base Excess ABG Hemoglobin ABG Oxyhemoglobin ABG Sodium ABG Potassium ABG Chloride ABG Glucose Oxyhemoglobin Carboxyhemoglobin Sodium Potassium Chloride Carbon Dioxide BUN Creatinine Glucose POC Glucose 231 H 240 H 239 H Hemoglobin A1c Lactic Acid Calcium Ferritin Total Bilirubin AST ALT Alkaline Phosphatase Lactate Dehydrogenase C-Reactive Protein Total Protein Albumin Triglycerides Arterial Blood Glucose Arterial Blood Ionized Calcium Ur Specific [place] Vancomycin Trough Coronavirus (PCR) 12/04/20 12/04/20 12/04/20 04:00 05:20 05:34 WBC RBC Hgb Hct RDW Plt Count Lymph % (Auto) [place] % (Auto) Lymph # (Auto) [place] # (Auto) Baso # (Auto) Seg Neutrophils % Seg Neuts % (Manual) Lymphocytes % (Manual) Seg Neutrophils # Seg Neutrophils # Man Lymphocytes # (Manual) D-Dimer ABG pH POC ABG pCO2 84.4 H POC ABG pO2 68.0 L ABG pO2 ABG HCO3 ABG O2 Saturation ABG Base Excess ABG Hemoglobin 11.6 L ABG Oxyhemoglobin ABG Sodium 130.9 L ABG Potassium ABG Chloride 90.0 L ABG Glucose 244 H Oxyhemoglobin Carboxyhemoglobin Sodium Potassium Chloride Carbon Dioxide BUN Creatinine Glucose POC Glucose 241 H 213 H Hemoglobin A1c Lactic Acid Calcium Ferritin Total Bilirubin AST ALT Alkaline Phosphatase Lactate Dehydrogenase C-Reactive Protein Total Protein Albumin Triglycerides Arterial Blood Glucose 244 H Arterial Blood Ionized Calcium 4.4 L Ur Specific [place] Vancomycin Trough Coronavirus (PCR) 12/04/20 12/04/20 12/04/20 11:36 16:53 23:32 WBC RBC Hgb Hct RDW Plt Count Lymph % (Auto) [place] % (Auto) Lymph # (Auto) [place] # (Auto) Baso # (Auto) Seg Neutrophils % Seg Neuts % (Manual) Lymphocytes % (Manual) Seg Neutrophils # Seg Neutrophils # Man Lymphocytes # (Manual) D-Dimer ABG pH POC ABG pCO2 POC ABG pO2 ABG pO2 ABG HCO3 ABG O2 Saturation ABG Base Excess ABG Hemoglobin ABG Oxyhemoglobin ABG Sodium ABG Potassium ABG Chloride ABG Glucose Oxyhemoglobin Carboxyhemoglobin Sodium Potassium Chloride Carbon Dioxide BUN Creatinine Glucose POC Glucose 196 H 127 H 230 H Hemoglobin A1c Lactic Acid Calcium Ferritin Total Bilirubin AST ALT Alkaline Phosphatase Lactate Dehydrogenase C-Reactive Protein Total Protein Albumin Triglycerides Arterial Blood Glucose Arterial Blood Ionized Calcium Ur Specific [place] Vancomycin Trough Coronavirus (PCR) 12/04/20 12/05/20 12/05/20 Unknown 04:16 05:21 WBC RBC Hgb Hct RDW Plt Count Lymph % (Auto) [place] % (Auto) Lymph # (Auto) [place] # (Auto) Baso # (Auto) Seg Neutrophils % Seg Neuts % (Manual) Lymphocytes % (Manual) Seg Neutrophils # Seg Neutrophils # Man Lymphocytes # (Manual) D-Dimer ABG pH POC ABG pCO2 86.7 H POC ABG pO2 58.0 L ABG pO2 ABG HCO3 ABG O2 Saturation ABG Base Excess ABG Hemoglobin 11.6 L ABG Oxyhemoglobin 89 L ABG Sodium 130.1 L ABG Potassium 4.9 H ABG Chloride 89.0 L ABG Glucose 254 H Oxyhemoglobin Carboxyhemoglobin Sodium 136 L Potassium Chloride 90.0 L Carbon Dioxide 46 H* BUN 24 H Creatinine 0.3 L Glucose 226 H POC Glucose 213 H Hemoglobin A1c Lactic Acid Calcium 7.6 L Ferritin Total Bilirubin AST 46 H ALT 78 H Alkaline Phosphatase 172 H Lactate Dehydrogenase C-Reactive Protein Total Protein 6.0 L Albumin 2.8 L Triglycerides 156 H Arterial Blood Glucose 254 H Arterial Blood Ionized Calcium 4.4 L Ur Specific [place] Vancomycin Trough Coronavirus (PCR) 12/05/20 12/05/20 12/05/20 11:22 17:26 23:38 WBC RBC Hgb Hct RDW Plt Count Lymph % (Auto) [place] % (Auto) Lymph # (Auto) [place] # (Auto) Baso # (Auto) Seg Neutrophils % Seg Neuts % (Manual) Lymphocytes % (Manual) Seg Neutrophils # Seg Neutrophils # Man Lymphocytes # (Manual) D-Dimer ABG pH POC ABG pCO2 POC ABG pO2 ABG pO2 ABG HCO3 ABG O2 Saturation ABG Base Excess ABG Hemoglobin ABG Oxyhemoglobin ABG Sodium ABG Potassium ABG Chloride ABG Glucose Oxyhemoglobin Carboxyhemoglobin Sodium Potassium Chloride Carbon Dioxide BUN Creatinine Glucose POC Glucose 212 H 157 H 204 H Hemoglobin A1c Lactic Acid Calcium Ferritin Total Bilirubin AST ALT Alkaline Phosphatase Lactate Dehydrogenase C-Reactive Protein Total Protein Albumin Triglycerides Arterial Blood Glucose Arterial Blood Ionized Calcium Ur Specific [place] Vancomycin Trough Coronavirus (PCR) 12/06/20 12/06/20 12/06/20 04:31 04:31 05:12 WBC 17.0 H RBC 3.63 L Hgb 10.8 L D Hct 32.6 L D RDW Plt Count Lymph % (Auto) [place] % (Auto) Lymph # (Auto) [place] # (Auto) Baso # (Auto) Seg Neutrophils % Seg Neuts % (Manual) Lymphocytes % (Manual) Seg Neutrophils # Seg Neutrophils # Man Lymphocytes # (Manual) D-Dimer ABG pH POC ABG pCO2 85.9 H POC ABG pO2 57.6 L ABG pO2 ABG HCO3 ABG O2 Saturation ABG Base Excess ABG Hemoglobin ABG Oxyhemoglobin ABG Sodium 131.2 L ABG Potassium 4.8 H ABG Chloride 86.0 L ABG Glucose 200 H Oxyhemoglobin Carboxyhemoglobin Sodium 134 L Potassium 5.1 H Chloride 88.4 L Carbon Dioxide 47 H* BUN 23 H Creatinine 0.3 L Glucose 206 H POC Glucose Hemoglobin A1c Lactic Acid Calcium 8.3 L Ferritin Total Bilirubin AST 48 H ALT 91 H Alkaline Phosphatase 140 H Lactate Dehydrogenase C-Reactive Protein Total Protein 5.7 L Albumin 2.6 L Triglycerides Arterial Blood Glucose 200 H Arterial Blood Ionized Calcium 4.4 L Ur Specific [place] Vancomycin Trough Coronavirus (PCR) 12/06/20 12/06/20 12/06/20 05:24 12:18 16:45 WBC RBC Hgb Hct RDW Plt Count Lymph % (Auto) [place] % (Auto) Lymph # (Auto) [place] # (Auto) Baso # (Auto) Seg Neutrophils % Seg Neuts % (Manual) Lymphocytes % (Manual) Seg Neutrophils # Seg Neutrophils # Man Lymphocytes # (Manual) D-Dimer ABG pH POC ABG pCO2 POC ABG pO2 ABG pO2 ABG HCO3 ABG O2 Saturation ABG Base Excess ABG Hemoglobin ABG Oxyhemoglobin ABG Sodium ABG Potassium ABG Chloride ABG Glucose Oxyhemoglobin Carboxyhemoglobin Sodium Potassium Chloride Carbon Dioxide BUN Creatinine Glucose POC Glucose 186 H 187 H 150 H Hemoglobin A1c Lactic Acid Calcium Ferritin Total Bilirubin AST ALT Alkaline Phosphatase Lactate Dehydrogenase C-Reactive Protein Total Protein Albumin Triglycerides Arterial Blood Glucose Arterial Blood Ionized Calcium Ur Specific [place] Vancomycin Trough Coronavirus (PCR) 12/06/20 12/07/20 12/07/20 23:43 05:20 05:21 WBC RBC Hgb Hct RDW Plt Count Lymph % (Auto) [place] % (Auto) Lymph # (Auto) [place] # (Auto) Baso # (Auto) Seg Neutrophils % Seg Neuts % (Manual) Lymphocytes % (Manual) Seg Neutrophils # Seg Neutrophils # Man Lymphocytes # (Manual) D-Dimer ABG pH POC ABG pCO2 POC ABG pO2 ABG pO2 48.4 L ABG HCO3 50.8 H ABG O2 Saturation 86.2 L ABG Base Excess 22.4 H ABG Hemoglobin 11.0 L ABG Oxyhemoglobin ABG Sodium ABG Potassium ABG Chloride ABG Glucose Oxyhemoglobin 84.0 L Carboxyhemoglobin Sodium Potassium Chloride Carbon Dioxide BUN Creatinine Glucose POC Glucose 153 H 107 H Hemoglobin A1c Lactic Acid Calcium Ferritin Total Bilirubin AST ALT Alkaline Phosphatase Lactate Dehydrogenase C-Reactive Protein Total Protein Albumin Triglycerides Arterial Blood Glucose Arterial Blood Ionized Calcium Ur Specific [place] Vancomycin Trough Coronavirus (PCR) 12/07/20 12/07/20 12/07/20 13:20 14:28 17:35 WBC RBC Hgb Hct RDW Plt Count Lymph % (Auto) [place] % (Auto) Lymph # (Auto) [place] # (Auto) Baso # (Auto) Seg Neutrophils % Seg Neuts % (Manual) Lymphocytes % (Manual) Seg Neutrophils # Seg Neutrophils # Man Lymphocytes # (Manual) D-Dimer ABG pH POC ABG pCO2 74.1 H POC ABG pO2 68.5 L ABG pO2 ABG HCO3 ABG O2 Saturation ABG Base Excess ABG Hemoglobin 10.7 L ABG Oxyhemoglobin 91.9 L ABG Sodium 132.2 L ABG Potassium 4.7 H ABG Chloride 88.0 L ABG Glucose 138 H Oxyhemoglobin Carboxyhemoglobin Sodium 134 L Potassium Chloride 87.4 L Carbon Dioxide 49 H* BUN Creatinine 0.2 L Glucose 132 H POC Glucose 176 H Hemoglobin A1c Lactic Acid Calcium 7.7 L Ferritin Total Bilirubin AST ALT Alkaline Phosphatase Lactate Dehydrogenase C-Reactive Protein Total Protein Albumin Triglycerides Arterial Blood Glucose 138 H Arterial Blood Ionized Calcium 4.0 L Ur Specific [place] Vancomycin Trough Coronavirus (PCR) 12/07/20 12/08/20 12/08/20 23:44 04:12 05:29 WBC RBC Hgb Hct RDW Plt Count Lymph % (Auto) [place] % (Auto) Lymph # (Auto) [place] # (Auto) Baso # (Auto) Seg Neutrophils % Seg Neuts % (Manual) Lymphocytes % (Manual) Seg Neutrophils # Seg Neutrophils # Man Lymphocytes # (Manual) D-Dimer ABG pH POC ABG pCO2 POC ABG pO2 ABG pO2 69.7 L ABG HCO3 50.1 H ABG O2 Saturation ABG Base Excess 21.6 H ABG Hemoglobin 10.9 L ABG Oxyhemoglobin ABG Sodium ABG Potassium ABG Chloride ABG Glucose Oxyhemoglobin 93.2 L Carboxyhemoglobin Sodium Potassium Chloride Carbon Dioxide BUN Creatinine Glucose POC Glucose 143 H 143 H Hemoglobin A1c Lactic Acid Calcium Ferritin Total Bilirubin AST ALT Alkaline Phosphatase Lactate Dehydrogenase C-Reactive Protein Total Protein Albumin Triglycerides Arterial Blood Glucose Arterial Blood Ionized Calcium Ur Specific [place] Vancomycin Trough Coronavirus (PCR) 12/08/20 12/08/20 12/09/20 06:10 06:10 04:24 WBC 12.0 H RBC 3.18 L Hgb 9.5 L Hct 28.9 L RDW Plt Count Lymph % (Auto) [place] % (Auto) Lymph # (Auto) [place] # (Auto) Baso # (Auto) Seg Neutrophils % Seg Neuts % (Manual) 95.0 H Lymphocytes % (Manual) 3.0 L Seg Neutrophils # Seg Neutrophils # Man 11.4 H Lymphocytes # (Manual) 0.4 L D-Dimer ABG pH POC ABG pCO2 76.2 H POC ABG pO2 52.8 L ABG pO2 ABG HCO3 ABG O2 Saturation ABG Base Excess ABG Hemoglobin 11.7 L ABG Oxyhemoglobin ABG Sodium 132.0 L ABG Potassium ABG Chloride 87.0 L ABG Glucose 118 H Oxyhemoglobin Carboxyhemoglobin Sodium 133 L Potassium Chloride 86.3 L Carbon Dioxide 53 H* BUN Creatinine 0.2 L Glucose 156 H POC Glucose Hemoglobin A1c Lactic Acid Calcium 7.6 L Ferritin Total Bilirubin AST ALT Alkaline Phosphatase Lactate Dehydrogenase C-Reactive Protein Total Protein Albumin Triglycerides Arterial Blood Glucose 118 H Arterial Blood Ionized Calcium 4.2 L Ur Specific [place] Vancomycin Trough Coronavirus (PCR) 12/09/20 12/09/20 12/09/20 05:44 06:40 06:40 WBC 13.5 H RBC 3.28 L Hgb 9.7 L Hct 29.9 L RDW Plt Count Lymph % (Auto) [place] % (Auto) Lymph # (Auto) [place] # (Auto) Baso # (Auto) Seg Neutrophils % Seg Neuts % (Manual) Lymphocytes % (Manual) Seg Neutrophils # Seg Neutrophils # Man Lymphocytes # (Manual) D-Dimer ABG pH POC ABG pCO2 POC ABG pO2 ABG pO2 ABG HCO3 ABG O2 Saturation ABG Base Excess ABG Hemoglobin ABG Oxyhemoglobin ABG Sodium ABG Potassium ABG Chloride ABG Glucose Oxyhemoglobin Carboxyhemoglobin Sodium 135 L Potassium Chloride 89.5 L Carbon Dioxide 52 H* BUN Creatinine 0.3 L Glucose 114 H POC Glucose 117 H Hemoglobin A1c Lactic Acid Calcium 7.6 L Ferritin Total Bilirubin AST ALT Alkaline Phosphatase Lactate Dehydrogenase C-Reactive Protein Total Protein Albumin Triglycerides Arterial Blood Glucose Arterial Blood Ionized Calcium Ur Specific [place] Vancomycin Trough Coronavirus (PCR) 12/09/20 12/09/20 12/10/20 16:42 21:11 04:28 WBC RBC Hgb Hct RDW Plt Count Lymph % (Auto) [place] % (Auto) Lymph # (Auto) [place] # (Auto) Baso # (Auto) Seg Neutrophils % Seg Neuts % (Manual) Lymphocytes % (Manual) Seg Neutrophils # Seg Neutrophils # Man Lymphocytes # (Manual) D-Dimer ABG pH POC ABG pCO2 72.5 H 69.4 H 76.9 H POC ABG pO2 50.4 L 80.6 L 60.2 L ABG pO2 ABG HCO3 ABG O2 Saturation ABG Base Excess ABG Hemoglobin 10.4 L 10.7 L 10 L ABG Oxyhemoglobin 84.3 L 89.7 L ABG Sodium 133.7 L 133.7 L 133.8 L ABG Potassium ABG Chloride 90.0 L 91.0 L 91.0 L ABG Glucose 116 H 96 H 57 L Oxyhemoglobin Carboxyhemoglobin 0.4 L Sodium Potassium Chloride Carbon Dioxide BUN Creatinine Glucose POC Glucose Hemoglobin A1c Lactic Acid Calcium Ferritin Total Bilirubin AST ALT Alkaline Phosphatase Lactate Dehydrogenase C-Reactive Protein Total Protein Albumin Triglycerides Arterial Blood Glucose 116 H 96 H 57 L Arterial Blood Ionized Calcium 4.2 L 4.3 L 4.2 L Ur Specific [place] Vancomycin Trough Coronavirus (PCR) 12/10/20 12/10/20 12/10/20 05:09 05:41 11:50 WBC RBC Hgb Hct RDW Plt Count Lymph % (Auto) [place] % (Auto) Lymph # (Auto) [place] # (Auto) Baso # (Auto) Seg Neutrophils % Seg Neuts % (Manual) Lymphocytes % (Manual) Seg Neutrophils # Seg Neutrophils # Man Lymphocytes # (Manual) D-Dimer ABG pH POC ABG pCO2 POC ABG pO2 ABG pO2 ABG HCO3 ABG O2 Saturation ABG Base Excess ABG Hemoglobin ABG Oxyhemoglobin ABG Sodium ABG Potassium ABG Chloride ABG Glucose Oxyhemoglobin Carboxyhemoglobin Sodium Potassium Chloride Carbon Dioxide BUN Creatinine Glucose POC Glucose 41 L 138 H 106 H Hemoglobin A1c Lactic Acid Calcium Ferritin Total Bilirubin AST ALT Alkaline Phosphatase Lactate Dehydrogenase C-Reactive Protein Total Protein Albumin Triglycerides Arterial Blood Glucose Arterial Blood Ionized Calcium Ur Specific [place] Vancomycin Trough Coronavirus (PCR) 12/10/20 12/10/20 12/11/20 17:34 23:25 04:06 WBC RBC Hgb Hct RDW Plt Count Lymph % (Auto) [place] % (Auto) Lymph # (Auto) [place] # (Auto) Baso # (Auto) Seg Neutrophils % Seg Neuts % (Manual) Lymphocytes % (Manual) Seg Neutrophils # Seg Neutrophils # Man Lymphocytes # (Manual) D-Dimer ABG pH POC ABG pCO2 71.0 H POC ABG pO2 56.8 L ABG pO2 ABG HCO3 ABG O2 Saturation ABG Base Excess ABG Hemoglobin 10.1 L ABG Oxyhemoglobin 88.5 L ABG Sodium 132.3 L ABG Potassium ABG Chloride 91.0 L ABG Glucose 168 H Oxyhemoglobin Carboxyhemoglobin Sodium Potassium Chloride Carbon Dioxide BUN Creatinine Glucose POC Glucose 121 H 167 H Hemoglobin A1c Lactic Acid Calcium Ferritin Total Bilirubin AST ALT Alkaline Phosphatase Lactate Dehydrogenase C-Reactive Protein Total Protein Albumin Triglycerides Arterial Blood Glucose 168 H Arterial Blood Ionized Calcium 4.1 L Ur Specific [place] Vancomycin Trough Coronavirus (PCR) 12/11/20 12/11/20 12/11/20 05:21 11:44 15:40 WBC RBC Hgb Hct RDW Plt Count Lymph % (Auto) [place] % (Auto) Lymph # (Auto) [place] # (Auto) Baso # (Auto) Seg Neutrophils % Seg Neuts % (Manual) Lymphocytes % (Manual) Seg Neutrophils # Seg Neutrophils # Man Lymphocytes # (Manual) D-Dimer ABG pH 7.454 H POC ABG pCO2 58.6 H POC ABG pO2 50.7 L ABG pO2 ABG HCO3 ABG O2 Saturation ABG Base Excess ABG Hemoglobin 10.1 L ABG Oxyhemoglobin 86.2 L ABG Sodium 131.2 L ABG Potassium ABG Chloride 92.0 L ABG Glucose 197 H Oxyhemoglobin Carboxyhemoglobin Sodium Potassium Chloride Carbon Dioxide BUN Creatinine Glucose POC Glucose 149 H 202 H Hemoglobin A1c Lactic Acid Calcium Ferritin Total Bilirubin AST ALT Alkaline Phosphatase Lactate Dehydrogenase C-Reactive Protein Total Protein Albumin Triglycerides Arterial Blood Glucose 197 H Arterial Blood Ionized Calcium 4.2 L Ur Specific [place] Vancomycin Trough Coronavirus (PCR) 12/11/20 12/11/20 12/12/20 17:09 23:16 05:09 WBC RBC Hgb Hct RDW Plt Count Lymph % (Auto) [place] % (Auto) Lymph # (Auto) [place] # (Auto) Baso # (Auto) Seg Neutrophils % Seg Neuts % (Manual) Lymphocytes % (Manual) Seg Neutrophils # Seg Neutrophils # Man Lymphocytes # (Manual) D-Dimer ABG pH POC ABG pCO2 63.1 H POC ABG pO2 62.6 L ABG pO2 ABG HCO3 ABG O2 Saturation ABG Base Excess ABG Hemoglobin 10.3 L ABG Oxyhemoglobin ABG Sodium 130.3 L ABG Potassium 4.6 H ABG Chloride 92.0 L ABG Glucose 215 H Oxyhemoglobin Carboxyhemoglobin Sodium Potassium Chloride Carbon Dioxide BUN Creatinine Glucose POC Glucose 181 H 192 H Hemoglobin A1c Lactic Acid Calcium Ferritin Total Bilirubin AST ALT Alkaline Phosphatase Lactate Dehydrogenase C-Reactive Protein Total Protein Albumin Triglycerides Arterial Blood Glucose 215 H Arterial Blood Ionized Calcium 4.4 L Ur Specific [place] Vancomycin Trough Coronavirus (PCR) 12/12/20 12/12/20 12/12/20 05:16 05:47 11:41 WBC RBC Hgb Hct RDW Plt Count Lymph % (Auto) [place] % (Auto) Lymph # (Auto) [place] # (Auto) Baso # (Auto) Seg Neutrophils % Seg Neuts % (Manual) Lymphocytes % (Manual) Seg Neutrophils # Seg Neutrophils # Man Lymphocytes # (Manual) D-Dimer ABG pH POC ABG pCO2 POC ABG pO2 ABG pO2 ABG HCO3 ABG O2 Saturation ABG Base Excess ABG Hemoglobin ABG Oxyhemoglobin ABG Sodium ABG Potassium ABG Chloride ABG Glucose Oxyhemoglobin Carboxyhemoglobin Sodium Potassium Chloride Carbon Dioxide BUN Creatinine Glucose POC Glucose 208 H 218 H Hemoglobin A1c Lactic Acid Calcium Ferritin Total Bilirubin AST ALT Alkaline Phosphatase Lactate Dehydrogenase C-Reactive Protein Total Protein Albumin Triglycerides 150 H Arterial Blood Glucose Arterial Blood Ionized Calcium Ur Specific [place] Vancomycin Trough Coronavirus (PCR) 12/12/20 12/12/20 12/13/20 17:05 23:18 03:36 WBC RBC Hgb Hct RDW Plt Count Lymph % (Auto) [place] % (Auto) Lymph # (Auto) [place] # (Auto) Baso # (Auto) Seg Neutrophils % Seg Neuts % (Manual) Lymphocytes % (Manual) Seg Neutrophils # Seg Neutrophils # Man Lymphocytes # (Manual) D-Dimer ABG pH POC ABG pCO2 61.5 H POC ABG pO2 77.6 L ABG pO2 ABG HCO3 ABG O2 Saturation ABG Base Excess ABG Hemoglobin 10.2 L ABG Oxyhemoglobin ABG Sodium 127.5 L ABG Potassium ABG Chloride 91.0 L ABG Glucose 232 H Oxyhemoglobin Carboxyhemoglobin Sodium Potassium Chloride Carbon Dioxide BUN Creatinine Glucose POC Glucose 187 H 176 H Hemoglobin A1c Lactic Acid Calcium Ferritin Total Bilirubin AST ALT Alkaline Phosphatase Lactate Dehydrogenase C-Reactive Protein Total Protein Albumin Triglycerides Arterial Blood Glucose 232 H Arterial Blood Ionized Calcium 4.2 L Ur Specific [place] Vancomycin Trough Coronavirus (PCR) 12/13/20 12/13/20 12/13/20 05:13 10:00 11:30 WBC RBC 3.50 L Hgb 10.5 L Hct 31.9 L RDW Plt Count Lymph % (Auto) [place] % (Auto) Lymph # (Auto) [place] # (Auto) Baso # (Auto) Seg Neutrophils % Seg Neuts % (Manual) 96.0 H Lymphocytes % (Manual) Seg Neutrophils # Seg Neutrophils # Man 9.2 H Lymphocytes # (Manual) 0.0 L D-Dimer ABG pH POC ABG pCO2 POC ABG pO2 ABG pO2 ABG HCO3 ABG O2 Saturation ABG Base Excess ABG Hemoglobin ABG Oxyhemoglobin ABG Sodium ABG Potassium ABG Chloride ABG Glucose Oxyhemoglobin Carboxyhemoglobin Sodium Potassium Chloride Carbon Dioxide BUN Creatinine Glucose POC Glucose 204 H Hemoglobin A1c Lactic Acid Calcium Ferritin Total Bilirubin AST ALT Alkaline Phosphatase Lactate Dehydrogenase C-Reactive Protein Total Protein Albumin Triglycerides Arterial Blood Glucose Arterial Blood Ionized Calcium Ur Specific [place] Vancomycin Trough Coronavirus (PCR) Positive A 12/13/20 12/13/20 12/13/20 11:30 12:01 18:04 WBC RBC Hgb Hct RDW Plt Count Lymph % (Auto) [place] % (Auto) Lymph # (Auto) [place] # (Auto) Baso # (Auto) Seg Neutrophils % Seg Neuts % (Manual) Lymphocytes % (Manual) Seg Neutrophils # Seg Neutrophils # Man Lymphocytes # (Manual) D-Dimer ABG pH POC ABG pCO2 POC ABG pO2 ABG pO2 ABG HCO3 ABG O2 Saturation ABG Base Excess ABG Hemoglobin ABG Oxyhemoglobin ABG Sodium ABG Potassium ABG Chloride ABG Glucose Oxyhemoglobin Carboxyhemoglobin Sodium 132 L Potassium Chloride 90.1 L Carbon Dioxide 41 H* D BUN Creatinine 0.2 L Glucose 249 H POC Glucose 224 H 172 H Hemoglobin A1c Lactic Acid Calcium 7.4 L Ferritin Total Bilirubin AST ALT 61 H Alkaline Phosphatase Lactate Dehydrogenase C-Reactive Protein Total Protein 5.7 L Albumin 2.3 L Triglycerides Arterial Blood Glucose Arterial Blood Ionized Calcium Ur Specific [place] Vancomycin Trough Coronavirus (PCR) 12/13/20 12/14/20 12/14/20 23:37 04:05 04:35 WBC RBC 3.37 L Hgb 10.1 L Hct 30.7 L RDW 15.4 H Plt Count Lymph % (Auto) [place] % (Auto) Lymph # (Auto) [place] # (Auto) Baso # (Auto) Seg Neutrophils % Seg Neuts % (Manual) 93.0 H Lymphocytes % (Manual) 3.0 L Seg Neutrophils # Seg Neutrophils # Man 7.8 H Lymphocytes # (Manual) 0.3 L D-Dimer ABG pH POC ABG pCO2 72.2 H POC ABG pO2 61.5 L ABG pO2 ABG HCO3 ABG O2 Saturation ABG Base Excess ABG Hemoglobin ABG Oxyhemoglobin 89.9 L ABG Sodium 131.4 L ABG Potassium ABG Chloride 91.0 L ABG Glucose 205 H Oxyhemoglobin Carboxyhemoglobin Sodium Potassium Chloride Carbon Dioxide BUN Creatinine Glucose POC Glucose 200 H Hemoglobin A1c Lactic Acid Calcium Ferritin Total Bilirubin AST ALT Alkaline Phosphatase Lactate Dehydrogenase C-Reactive Protein Total Protein Albumin Triglycerides Arterial Blood Glucose 205 H Arterial Blood Ionized Calcium 4.3 L Ur Specific [place] Vancomycin Trough Coronavirus (PCR) 12/14/20 12/14/20 12/14/20 04:35 05:12 11:31 WBC RBC Hgb Hct RDW Plt Count Lymph % (Auto) [place] % (Auto) Lymph # (Auto) [place] # (Auto) Baso # (Auto) Seg Neutrophils % Seg Neuts % (Manual) Lymphocytes % (Manual) Seg Neutrophils # Seg Neutrophils # Man Lymphocytes # (Manual) D-Dimer ABG pH POC ABG pCO2 POC ABG pO2 ABG pO2 ABG HCO3 ABG O2 Saturation ABG Base Excess ABG Hemoglobin ABG Oxyhemoglobin ABG Sodium ABG Potassium ABG Chloride ABG Glucose Oxyhemoglobin Carboxyhemoglobin Sodium 135 L Potassium Chloride 92.5 L Carbon Dioxide 38 H BUN Creatinine 0.2 L Glucose 184 H POC Glucose 176 H 212 H Hemoglobin A1c Lactic Acid Calcium 7.7 L Ferritin Total Bilirubin AST ALT Alkaline Phosphatase Lactate Dehydrogenase C-Reactive Protein Total Protein Albumin Triglycerides Arterial Blood Glucose Arterial Blood Ionized Calcium Ur Specific [place] Vancomycin Trough Coronavirus (PCR) 12/14/20 12/14/20 12/15/20 17:30 23:30 03:19 WBC RBC Hgb Hct RDW Plt Count Lymph % (Auto) [place] % (Auto) Lymph # (Auto) [place] # (Auto) Baso # (Auto) Seg Neutrophils % Seg Neuts % (Manual) Lymphocytes % (Manual) Seg Neutrophils # Seg Neutrophils # Man Lymphocytes # (Manual) D-Dimer ABG pH POC ABG pCO2 62.0 H POC ABG pO2 66.0 L ABG pO2 ABG HCO3 ABG O2 Saturation ABG Base Excess ABG Hemoglobin 10.3 L ABG Oxyhemoglobin ABG Sodium 130.5 L ABG Potassium ABG Chloride 91.0 L ABG Glucose 166 H Oxyhemoglobin Carboxyhemoglobin Sodium Potassium Chloride Carbon Dioxide BUN Creatinine Glucose POC Glucose 222 H 176 H Hemoglobin A1c Lactic Acid Calcium Ferritin Total Bilirubin AST ALT Alkaline Phosphatase Lactate Dehydrogenase C-Reactive Protein Total Protein Albumin Triglycerides Arterial Blood Glucose 166 H Arterial Blood Ionized Calcium 4.4 L Ur Specific [place] Vancomycin Trough Coronavirus (PCR) 12/15/20 12/15/20 12/15/20 05:24 11:39 17:30 WBC RBC Hgb Hct RDW Plt Count Lymph % (Auto) [place] % (Auto) Lymph # (Auto) [place] # (Auto) Baso # (Auto) Seg Neutrophils % Seg Neuts % (Manual) Lymphocytes % (Manual) Seg Neutrophils # Seg Neutrophils # Man Lymphocytes # (Manual) D-Dimer ABG pH POC ABG pCO2 POC ABG pO2 ABG pO2 ABG HCO3 ABG O2 Saturation ABG Base Excess ABG Hemoglobin ABG Oxyhemoglobin ABG Sodium ABG Potassium ABG Chloride ABG Glucose Oxyhemoglobin Carboxyhemoglobin Sodium Potassium Chloride Carbon Dioxide BUN Creatinine Glucose POC Glucose 160 H 140 H 246 H Hemoglobin A1c Lactic Acid Calcium Ferritin Total Bilirubin AST ALT Alkaline Phosphatase Lactate Dehydrogenase C-Reactive Protein Total Protein Albumin Triglycerides Arterial Blood Glucose Arterial Blood Ionized Calcium Ur Specific [place] Vancomycin Trough Coronavirus (PCR) 12/15/20 12/16/20 12/16/20 23:42 03:54 04:46 WBC RBC 3.48 L Hgb 10.6 L Hct 31.5 L RDW 15.8 H Plt Count Lymph % (Auto) [place] % (Auto) Lymph # (Auto) [place] # (Auto) Baso # (Auto) Seg Neutrophils % Seg Neuts % (Manual) Lymphocytes % (Manual) Seg Neutrophils # Seg Neutrophils # Man Lymphocytes # (Manual) D-Dimer ABG pH POC ABG pCO2 63.6 H POC ABG pO2 55.0 L ABG pO2 ABG HCO3 ABG O2 Saturation ABG Base Excess ABG Hemoglobin 11.1 L ABG Oxyhemoglobin 87.3 L ABG Sodium 130.7 L ABG Potassium ABG Chloride 89.0 L ABG Glucose 211 H Oxyhemoglobin Carboxyhemoglobin Sodium Potassium Chloride Carbon Dioxide BUN Creatinine Glucose POC Glucose 139 H Hemoglobin A1c Lactic Acid Calcium Ferritin Total Bilirubin AST ALT Alkaline Phosphatase Lactate Dehydrogenase C-Reactive Protein Total Protein Albumin Triglycerides Arterial Blood Glucose 211 H Arterial Blood Ionized Calcium 4.3 L Ur Specific [place] Vancomycin Trough Coronavirus (PCR) 12/16/20 12/16/20 04:46 05:34 WBC RBC Hgb Hct RDW Plt Count Lymph % (Auto) [place] % (Auto) Lymph # (Auto) [place] # (Auto) Baso # (Auto) Seg Neutrophils % Seg Neuts % (Manual) Lymphocytes % (Manual) Seg Neutrophils # Seg Neutrophils # Man Lymphocytes # (Manual) D-Dimer ABG pH POC ABG pCO2 POC ABG pO2 ABG pO2 ABG HCO3 ABG O2 Saturation ABG Base Excess ABG Hemoglobin ABG Oxyhemoglobin ABG Sodium ABG Potassium ABG Chloride ABG Glucose Oxyhemoglobin Carboxyhemoglobin Sodium 134 L Potassium Chloride 89.7 L Carbon Dioxide 38 H BUN Creatinine < 0.2 L Glucose 203 H POC Glucose 155 H Hemoglobin A1c Lactic Acid Calcium 7.5 L Ferritin Total Bilirubin AST ALT Alkaline Phosphatase Lactate Dehydrogenase C-Reactive Protein Total Protein Albumin Triglycerides Arterial Blood Glucose Arterial Blood Ionized Calcium Ur Specific [place] Vancomycin Trough Coronavirus (PCR)
--- NOTE | 2020-12-16 11:48 | Progress Note ---
Assessment and Plan Cultures: SARS CoV-2 PCR: positive Blood culture: No growth 11/21/2020 tracheal aspirate culture: MRSA 12/09/2020 blood culture: no growth 12/09/2020 sputum culture: Klebsiella A/P: 59-year-old male with: #Shock: on pressors. #Bilateral pneumonia: secondary to COVID-19. Completed abx, remdesivir. #Klebsiella on ET aspirate culture: ?colonization v/s true disease, difficult to differentiate. Will treat given development of low-grade temperatures and white count. #Right-sided pneumothorax and pneumomediastinum: s/p chest tube. #Acute hypoxic respiratory failure: Remains on the vent. #Elevated d-dimer: DVT scan negative. Unable to get CTA Chest due to patients unstable clinical status #Transaminitis: secondary to COVID-19. Recs: -completed antibiotics -very poor prognosis. Consider DNR status, recent literature showing mortality of 100% in COVID-19 patients who required CPR Dayday Driscoll MD, FACP [facility] ([facility] O: [phone] F: [phone] Subjective Date of service: 12/16/20 Principal diagnosis: COVID-19 Interval history: One low grade fever. Remains intubated with high requirements. Remains on pressors. Objective - Exam Narrative Exam: Physical Exam (reviewed in chart to minimize risk of transmission) Constitutional: deferred Head, Ears, Nose: deferred Eyes: deferred Neck: deferred Oral: deferred Cardiovascular: deferred Respiratory: deferred GI: deferred Musculoskeletal: deferred Skin: deferred Hem/Lymphatic: deferred Psych: deferred Neurological: deferred - Constitutional Vitals: Vital Signs Temp Pulse Resp BP Pulse Ox 99.4 F 115 H 30 H 135/69 91 12/16/20 07:39 12/16/20 11:00 12/16/20 11:00 12/16/20 11:00 12/16/20 11:00 Temperature -Last 24 Hours Temperature 99.4 F Temperature 99.4 F Temperature 98.9 F Temperature 99.3 F Temperature 99.9 F Temperature 100.3 F - Labs CBC & Chem 7: 12/16/20 04:46 12/16/20 04:46 Labs: Abnormal lab results 12/15/20 12/15/2021 Range/Units 17:30 23:42 03:54 RBC (3.65-5.03) M/mm3 Hgb (11.8-15.2) gm/dl Hct (35.5-45.6) % RDW (13.2-15.2) % POC ABG pCO2 63.6 H (32.0-48.0) mmHg POC ABG pO2 55.0 L (83-108) mmHg ABG Hemoglobin 11.1 L (12.0-17.5) ABG Oxyhemoglobin 87.3 L (94-98) ABG Sodium 130.7 L (136.0-145.0) mmol/L ABG Chloride 89.0 L (98-107) mmol/L ABG Glucose 211 H (65-95) mg/dL Sodium (137-145) mmol/L Chloride (98-107) mmol/L Carbon Dioxide (22-30) mmol/L Creatinine (0.8-1.3) mg/dL Glucose (75-100) mg/dL POC Glucose 246 H 139 H (70-105) mg/dL Calcium (8.4-10.2) mg/dL Arterial Blood Glucose 211 H (65-95) mg/dL Arterial Blood Ionized Calcium 4.3 L (4.6-5.3) mg/dL 12/16/20 12/16/20 12/16/20 Range/Units 04:46 04:46 05:34 RBC 3.48 L (3.65-5.03) M/mm3 Hgb 10.6 L (11.8-15.2) gm/dl Hct 31.5 L (35.5-45.6) % RDW 15.8 H (13.2-15.2) % POC ABG pCO2 (32.0-48.0) mmHg POC ABG pO2 (83-108) mmHg ABG Hemoglobin (12.0-17.5) ABG Oxyhemoglobin (94-98) ABG Sodium (136.0-145.0) mmol/L ABG Chloride (98-107) mmol/L ABG Glucose (65-95) mg/dL Sodium 134 L (137-145) mmol/L Chloride 89.7 L (98-107) mmol/L Carbon Dioxide 38 H (22-30) mmol/L Creatinine < 0.2 L (0.8-1.3) mg/dL Glucose 203 H (75-100) mg/dL POC Glucose 155 H (70-105) mg/dL Calcium 7.5 L (8.4-10.2) mg/dL Arterial Blood Glucose (65-95) mg/dL Arterial Blood Ionized Calcium (4.6-5.3) mg/dL
[2020-12-16] MEDS: ACETAMINOPHEN 325 MG TAB PO PRN (11:55)
[2020-12-16] MEDS: FAMOTIDINE 20 MG TAB PO SCH ×2 (11:56→21:28)
--- NOTE | 2020-12-16 12:23 | Progress Note ---
<LISSETH ALSTONRigo - Last Filed: 12/16/20 12:27> Assessment and Plan Assessment and plan: Septic Shock secondary to pneumonia: S/p antibiotics, 11/21 tracheal aspirate with MRSA, / blood cultures x2 with no growth to date, 12/09 sputum culture with Klebsiella pneumonia, antibiotic therapy, infectious disease consulted, appreciate recommendations COVID-19 pneumonia: 12/06 Covid PCR positive, 12/13 Covid PCR positive, infectious disease and pulmonology consulted (appreciate recommendations) contact/droplet precautions, s/p remdesivir Acute hypoxic hypercapnic respiratory failure: S/p intubation on mechanical ventilation, CCM following, weaning as tolerated Bilateral pneumothorax: S/p bilateral chest tube placement with surgery, patient still requires high PEEP Pneumomediastinum with subcutaneous emphysema: S/p chest tube placement by surgery Elevated D-dimer: Bilateral lower extremity Dopplers are negative, unable to obtain CTA due to unstable clinical status Transaminitis: Secondary to COVID-19 Klebsiella pneumonia: Noted on sputum culture from 11/21, per infectious disease: Questionable colonization versus true disease, antibiotic therapy (cefepime deescalated to ceftriaxone) Type 2 diabetes mellitus: Accu-Cheks AC at bedtime, SSI, long-acting insulin DVT/GI prophylaxis: SCDs to bilateral lower extremities while in bed, Lovenox subcu, PPI Disposition: ICU History Interval history: 59-year-old female who is smoker who presented to [facility] with shortness of breath cough fever weakness for 1 to 2 days prior to arrival. Per EMS the patient was severely hypoxic with saturations in the low 80s. With all oxygen and nonrebreather came down to low 90s. ID, pulmonary, CCM were consulted. Septic Shock secondary to pneumonia COVID-19 pneumonia Acute hypoxic hypercapnic respiratory failure Bilateral pneumothorax Pneumomediastinum with subcutaneous emphysema Elevated D-dimer Transaminitis Klebsiella pneumonia Type 2 diabetes mellitus 2/: Patient continues on BiPAP throughout the night. Labs are remarkable for hypoxia with improving renal function but lactic acidosis without fever. CTA has been ordered to rule out pulmonary embolism. I agree with increasing enoxaparin to twice daily full dose for empiric treatment of pulmonary embolism. Will obtain ID consultation on further evaluation for possible underlying pneumonia versus COVID-19. We will also obtain echocardiogram for evaluation. Will discontinue fluids at this time. 2/2; Continue supportive care, Patient remains with very guarded prognosis, remains on BiPAP, continues on Remdesivir, and steroids. Will continue anticoagulation, unable to get CTA Chest due to patients unstable clinical status. Will adjust insulin for better blood glucose 2/3: Continues on BIPAP, no clear improvement at this time. Will continue steroids therapy Remdesivir and also Full anticoagulation at this time. Will update family. Discussed with Artificial Plastic Eye Maker. 2: Taking a break from the BiPAP on high flow and nonrebreather 100% with saturation of 90% becomes hypoxic with any movement. Artificial Plastic Eye Maker input noted will get a dose of Lasix today. Will await a discussion with ID for possibly increasing steroid. I updated Patient's Cousin, Tayla Esquivel who is the emergency contact clerk. Blood sugar remains fluctuating secondary to steriods, Encouraged Prone positioning. Noted with mild hyponatremia we will continue to monitor and manage 2/5: Continue supportive care wean oxygen as tolerated prognosis remains guar ded. Encouraged to progress as tolerated. Awaiting labs today. Discussed with nursing staff and patient at bedside. 2: Discontinued Dexamethasone as Solumedrol started secondary to increased oxy gen demand. Will give additional insulin for better control. Continue oxygen support patient still on high flow. Prognosis still guarded 11/22: Patient was intubated and placed on mechanical ventilation. Continue current medication. Will check a.m. labs today. Noted still with hypotension. Doubt septic shock at this time as patient has no new fever. Will adjust insulin for better blood sugar control. 11/23: Patient admitted with COVID-19 despite all efforts patient remains severely hypoxic and now is intubated. Artificial Plastic Eye Maker input noted. Blood pressure marginal at this time. Very poor prognosis. Continue Solu-Medrol. 11/24. Patient remains very hypoxic. Blood pressure borderline. Plan for initiation of paralytic agents as per audit practice intern. Patient may need to be transferred if no improvement. 11/26. Off paralytics. Remains intubated. On steroids. Prognosis is poor. 11/27. Chest xray shows pneumomediastinum and subcutaneous emphysema. Surgery consulted. Plan for chest tube placement. Sputum culture grew MRSA. Patient started on vancomycin per ID. 11/28. Right chest tube placed yesterday by surgery. Repeat chest x-ray showed left small pneumothorax. Plan for chest tube placement on the left today. Remains on paralytic agents. 11/29. Remains intubated on vent. Had left chest tube placed yesterday. Vitals reviewed. Critical care following 11/30/ Remains on mechanical ventilation. Worsening hypoxia. Bilateral chest tubes in place. Vitals reviewed. Labs reviewed 12/01: Chest tube and mechanical ventilation remains in place, poor prognosis, FIO2 remains at 90%, adjust insulin for better blood glucose control 12/02: Patient remains on full ventilatory support and steroids, still with worsening leukocytosis ?inflammatory or infectious vs steroids. Continue va ncomycin. 12/03; slowly weaning, 12/04: Still on the vent FiO2 down to 65% PEEP remains at 18. Still with poor prognosis. 12/05: Patient continues on full ventilatory support per audit practice intern PEEP remains at 18. Still with hypercapnic respiratory failure. FiO2 down to 60% this morning. Chest tube to suction still weaning off steroids in the deliberation ongoing for possible a third chest tube as last documentation by surgery shows no plan for it at this time. Continue to manage insulin for better blood sugar control. 12/06:weaned down to 60%, continue supportive care, unable to wean, 12/07; patient remains intubated on ventilatory support, chest tubes in place trach and PEG when patient's Covid test is negative,Per surgery. 12/08; Patient remains intubated remains with hypercapnia and hypoxia. Chest tube still remain in place. He is off antibiotics at this time. Continue st eroids which is likely resultant to the leukocytosis. Artificial Plastic Eye Maker and surgeon following ID input is noted. Prognosis remains guarded to poor 12/10; patient remains intubated on vent, unable to wean awaiting trach and PEG when Covid test is negative, Continue current management 12/11; patient awaiting trach and PEG when Covid test is negative, vent dependent, poor prognosis 12/12; clinically no change, vent dependent, Patient is critically ill with very poor prognosis, awaiting trach and PEG when COVID-19 test turns negative. Plan discussed with nursing staff. Caregivers have discussed with patient's family periodically 12/13: Patient is critically ill with very poor prognosis, awaiting trach and PEG when COVID-19 test turns negative. Plan discussed with nursing staff. Caregivers have discussed with patient's family periodically 12/14: Increase UOP which we will monitor and replete as needed. Patient remain hypoxemic on ABG despite 100 FiO2, remains on fentanyl, precedex, versed and levo gtt. /: Patient remains sedated on fentanyl at 3 mcg, Versed at 30 mg, dexamethasone 0.3 and was on Levophed 6 mcg this morning. Patient's vent settings rate of 30, tidal volume 425, PEEP of 18, FiO2 of 85. RT attempted to wean as tolerated. No acute events reported overnight. Bilateral chest tubes to wall suction. 12/16: Overnight the patient was noted to be bradycardic, Precedex drip was increased to 0.6/fentanyl to 4 mcg/Versed 5 mg, bolus ET tube to suction. Current vent settings for 425/30/18/0.75, RT to wean as tolerated Hospitalist Physical - Constitutional Vitals: Temp Pulse Resp BP Pulse Ox 101.2 F H 115 H 30 H 135/69 91 12/16/20 11:50 12/16/20 11:00 12/16/20 11:00 12/16/20 11:00 12/16/20 11:00 General appearance: Present: no acute distress, well-nourished, other (Vent dependent) - Neck Neck: Present: normal ROM - Respiratory Respiratory effort: normal Respiratory: bilateral: rhonchi - Cardiovascular Rhythm: regular Heart Sounds: Present: S1 & S2. Absent: systolic murmur, diastolic murmur - Extremities Extremities: no ischemia, pulses intact, pulses symmetrical, No edema, normal temperature, normal color Peripheral Pulses: within normal limits - Abdominal General gastrointestinal: soft, non-tender, non-distended, normal bowel sounds - Integumentary Integumentary: Present: warm, dry - Psychiatric Psychiatric: other (Sedated) - Neurologic Neurologic: other (Sedated) - Allied Health Allied health notes reviewed: nursing, social work, case management HEART Score - HEART Score Troponin: Troponin T < 0.010 ng/mL (0.00-0.029) 12/11/20 06:30 Results - Labs CBC & Chem 7: 12/16/20 04:46 12/16/20 04:46 Labs: Laboratory Last Values WBC 9.7 K/mm3 (4.5-11.0) 12/16/20 04:46 RBC 3.48 M/mm3 (3.65-5.03) L 12/16/20 04:46 Hgb 10.6 gm/dl (11.8-15.2) L 12/16/20 04:46 Hct 31.5 % (35.5-45.6) L 12/16/20 04:46 MCV 90 fl (84-94) 12/16/20 04:46 MCH 30 pg (28-32) 12/16/20 04:46 MCHC 34 % (32-34) 12/16/20 04:46 RDW 15.8 % (13.2-15.2) H 12/16/20 04:46 Plt Count 317 K/mm3 (140-440) 12/16/20 04:46 Lymph % (Auto) 2.0 % (13.4-35.0) L 11/27/20 06:25 [place] % (Auto) 5.2 % (0.0-7.3) 11/27/20 06:25 Eos % (Auto) 0.0 % (0.0-4.3) 11/27/20 06:25 Baso % (Auto) 0.1 % (0.0-1.8) 11/27/20 06:25 Lymph # (Auto) 0.3 K/mm3 (1.2-5.4) L 11/27/20 06:25 [place] # (Auto) 0.7 K/mm3 (0.0-0.8) 11/27/20 06:25 Eos # (Auto) 0.0 K/mm3 (0.0-0.4) 11/27/20 06:25 Baso # (Auto) 0.0 K/mm3 (0.0-0.1) 11/27/20 06:25 Add Manual Diff Complete 12/14/20 04:35 Total Counted 100 12/14/20 04:35 Seg Neutrophils % Doctor Of Naturopathic Medicine 12/14/20 04:35 Seg Neuts % (Manual) 93.0 % (40.0-70.0) H 12/14/20 04:35 Band Neutrophils % 2.0 % 12/13/20 11:30 Lymphocytes % (Manual) 3.0 % (13.4-35.0) L 12/14/20 04:35 Monocytes % (Manual) 4.0 % (0.0-7.3) 12/14/20 04:35 Nucleated RBC % Not Reportable 12/14/20 04:35 Seg Neutrophils # 12.7 K/mm3 (1.8-7.7) H 11/27/20 06:25 Seg Neutrophils # Man 7.8 K/mm3 (1.8-7.7) H 12/14/20 04:35 Band Neutrophils # 0.0 K/mm3 12/14/20 04:35 Lymphocytes # (Manual) 0.3 K/mm3 (1.2-5.4) L 12/14/20 04:35 Abs React Lymphs (Man) 0.0 K/mm3 12/14/20 04:35 Monocytes # (Manual) 0.3 K/mm3 (0.0-0.8) 12/14/20 04:35 Eosinophils # (Manual) 0.0 K/mm3 (0.0-0.4) 12/14/20 04:35 Basophils # (Manual) 0.0 K/mm3 (0.0-0.1) 12/14/20 04:35 Metamyelocytes # 0.0 K/mm3 12/14/20 04:35 Myelocytes # 0.0 K/mm3 12/14/20 04:35 Promyelocytes # 0.0 K/mm3 12/14/20 04:35 Blast Cells # 0.0 K/mm3 12/14/20 04:35 WBC Morphology Not Reportable 12/14/20 04:35 Hypersegmented Neuts Not Reportable 12/14/20 04:35 Hyposegmented Neuts Not Reportable 12/14/20 04:35 Hypogranular Neuts Not Reportable 12/14/20 04:35 Smudge Cells Not Reportable 12/14/20 04:35 Toxic Granulation Not Reportable 12/14/20 04:35 Toxic Vacuolation Not Reportable 12/14/20 04:35 Dohle Bodies Not Reportable 12/14/20 04:35 Pelger-Huet Anomaly Not Reportable 12/14/20 04:35 Tony Rods Not Reportable 12/14/20 04:35 Platelet Estimate Consistent w auto 12/14/20 04:35 Clumped Platelets Not Reportable 12/14/20 04:35 Plt Clumps, EDTA Not Reportable 12/14/20 04:35 Large Platelets Not Reportable 12/14/20 04:35 Giant Platelets Not Reportable 12/14/20 04:35 Platelet Satelliting Not Reportable 12/14/20 04:35 Plt Morphology Comment Not Reportable 12/14/20 04:35 RBC Morphology Not Reportable 12/14/20 04:35 Dimorphic RBCs Not Reportable 12/14/20 04:35 Polychromasia Not Reportable 12/14/20 04:35 Hypochromasia Few 12/14/20 04:35 Poikilocytosis Not Reportable 12/14/20 04:35 Anisocytosis Few 12/14/20 04:35 Microcytosis Not Reportable 12/14/20 04:35 Macrocytosis Not Reportable 12/14/20 04:35 Spherocytes Not Reportable 12/14/20 04:35 Pappenheimer Bodies Not Reportable 12/14/20 04:35 Sickle Cells Not Reportable 12/14/20 04:35 Target Cells Not Reportable 12/14/20 04:35 Tear Drop Cells Not Reportable 12/14/20 04:35 Ovalocytes Not Reportable 12/14/20 04:35 Stomatocytes 1+ 12/03/20 04:35 Helmet Cells Not Reportable 12/14/20 04:35 [place] Bodies Not Reportable 12/14/20 04:35 [place] Rings Not Reportable 12/14/20 04:35 [place] Cells Not Reportable 12/14/20 04:35 Bite Cells Not Reportable 12/14/20 04:35 Crenated Cell Not Reportable 12/14/20 04:35 Elliptocytes Not Reportable 12/14/20 04:35 Acanthocytes (Spur) Not Reportable 12/14/20 04:35 Rouleaux Not Reportable 12/14/20 04:35 Hemoglobin C Crystals Not Reportable 12/14/20 04:35 Schistocytes Not Reportable 12/14/20 04:35 Malaria parasites Not Reportable 12/14/20 04:35 Yovani Bodies Not Reportable 12/14/20 04:35 Hem Pathologist Commnt No 12/14/20 04:35 D-Dimer 926.11 ng/mlDDU (0-234) H 11/26/20 06:04 ABG pH 7.442 (7.320-7.450) 12/16/20 03:54 POC ABG pCO2 63.6 mmHg (32.0-48.0) H 12/16/20 03:54 ABG pCO2 81.3 mm Hg 12/08/20 04:12 POC ABG pO2 55.0 mmHg (83-108) L 12/16/20 03:54 ABG pO2 69.7 mm Hg (80.0-90.0) L 12/08/20 04:12 POC ABG HCO3 42.4 12/16/20 03:54 ABG HCO3 50.1 mmol/L (20.0-26.0) H 12/08/20 04:12 ABG O2 Saturation 95.4 % (95.0-99.0) 12/08/20 04:12 ABG O2 Content 13.0 (0.0-44) 12/07/20 05:20 POC ABG Base Excess 15.7 12/16/20 03:54 ABG Base Excess 21.6 mmol/L (-2.0-3.0) H 12/08/20 04:12 ABG Hemoglobin 11.1 (12.0-17.5) L 12/16/20 03:54 ABG Oxyhemoglobin 87.3 (94-98) L 12/16/20 03:54 ABG Carboxyhemoglobin 2.0 % (0.0-5.0) 12/08/20 04:12 ABG Methemoglobin 0.3 (0.0-1.5) 12/16/20 03:54 ABG Sodium 130.7 mmol/L (136.0-145.0) L 12/16/20 03:54 ABG Potassium 4.0 mmol/L (3.40-4.50) 12/16/20 03:54 ABG Chloride 89.0 mmol/L (98-107) L 12/16/20 03:54 ABG Glucose 211 mg/dL (65-95) H 12/16/20 03:54 Oxyhemoglobin 93.2 % (95.0-99.0) L 12/08/20 04:12 Carboxyhemoglobin 1.3 (0.5-1.5) 12/16/20 03:54 FiO2 75.0 12/16/20 03:54 Sodium 134 mmol/L (137-145) L 12/16/20 04:46 Potassium 4.3 mmol/L (3.6-5.0) 12/16/20 04:46 Chloride 89.7 mmol/L (98-107) L 12/16/20 04:46 Carbon Dioxide 38 mmol/L (22-30) H 12/16/20 04:46 Anion Gap 11 mmol/L 12/16/20 04:46 BUN 9 mg/dL (9-20) 12/16/20 04:46 Creatinine < 0.2 mg/dL (0.8-1.3) L 12/16/20 04:46 Estimated GFR > 60 ml/min 12/16/20 04:46 BUN/Creatinine Ratio 45 % 12/16/20 04:46 Glucose 203 mg/dL (75-100) H 12/16/20 04:46 POC Glucose 155 mg/dL (70-105) H 12/16/20 05:34 Hemoglobin A1c 11.7 % (4-6) H 11/16/20 05:29 Lactic Acid 2.60 mmol/L (0.7-2.0) H* 11/16/20 05:29 Calcium 7.5 mg/dL (8.4-10.2) L 12/16/20 04:46 Phosphorus 2.90 mg/dL (2.5-4.5) 12/04/20 Unknown Magnesium 1.80 mg/dL (1.7-2.3) 12/14/20 04:35 Ferritin 778.8 ng/mL (30.0-300.0) H 11/26/20 04:00 Total Bilirubin 0.50 mg/dL (0.1-1.2) 12/13/20 11:30 AST 34 units/L (5-40) 12/13/20 11:30 ALT 61 units/L (7-56) H 12/13/20 11:30 Alkaline Phosphatase 117 units/L (35-129) 12/13/20 11:30 Lactate Dehydrogenase 288 units/L (91-180) H 11/26/20 04:00 Troponin T < 0.010 ng/mL (0.00-0.029) 12/11/20 06:30 C-Reactive Protein 1.40 mg/dL (0.00-1.30) H 11/26/20 04:00 NT-Pro-B Natriuret Pep 107.2 pg/mL (0-900) 11/17/20 10:21 Total Protein 5.7 g/dL (6.3-8.2) L 12/13/20 11:30 Albumin 2.3 g/dL (3.9-5) L 12/13/20 11:30 Albumin/Globulin Ratio 0.7 % 12/13/20 11:30 Triglycerides 150 mg/dL (2-149) H 12/12/20 05:16 Procalcitonin 0.16 ng/mL (<0.15) 12/12/20 05:16 Arterial Blood Glucose 211 mg/dL (65-95) H 12/16/20 03:54 Arterial Blood Ionized Calcium 4.3 mg/dL (4.6-5.3) L 12/16/20 03:54 Urine Color Faustina (Yellow) 11/16/20 01:45 Urine Turbidity Slightly-cloudy (Clear) 11/16/20 01:45 Urine pH 6.0 (5.0-7.0) 11/16/20 01:45 Ur Specific [place] 1.037 (1.003-1.030) H 11/16/20 01:45 Urine Protein 30 mg/dl mg/dL (Negative) 11/16/20 01:45 Urine Glucose (UA) >=500 mg/dL (Negative) 11/16/20 01:45 Urine Ketones 20 mg/dL (Negative) 11/16/20 01:45 Urine Blood Neg (Negative) 11/16/20 01:45 Urine Nitrite Neg (Negative) 11/16/20 01:45 Urine Bilirubin Neg (Negative) 11/16/20 01:45 Urine Urobilinogen 2.0 mg/dL (<2.0) 11/16/20 01:45 Ur Leukocyte Esterase Neg (Negative) 11/16/20 01:45 Urine WBC (Auto) 2.0 /HPF (0.0-6.0) 11/16/20 01:45 Urine RBC (Auto) 1.0 /HPF (0.0-6.0) 11/16/20 01:45 Urine Bacteria (Auto) 1+ /HPF (Negative) 11/16/20 01:45 Urine Mucus 3+ /HPF 11/16/20 01:45 Vancomycin Trough 4.0 ug/mL (5.0-20.0) L 11/29/20 15:40 Coronavirus (PCR) Positive (Negative) A 12/13/20 10:00 - Diagnostic Impressions Diagnostic Impressions: Echocardiogram 11/16/20 10:34 Transthoracic Echocardiogram Indication: Shortness of breath-COVID BP: 108/77 HR: 92 Conclusions *Global left ventricular systolic function is normal. *The estimated ejection fraction is 60-65%. *Mild to moderate concentric left ventricular hypertrophy is observed. *There is trace of mitral regurgitation. *There is mild to moderate tricuspid regurgitation. *There is evidence of mild pulmonary hypertension. *The right ventricular systolic pressure is calculated at 31 mmHg. Findings Left Ventricle: The left ventricular chamber size is normal. Mild to moderate concentric left ventricular hypertrophy is observed. Global left ventricular systolic function is normal. The estimated ejection fraction is 60-65%. Left Atrium: The left atrial chamber size is normal. Right Ventricle: The right ventricular cavity size is normal. The right ventricular global systolic function is normal. Right Atrium: The right atrial cavity size is normal. Aortic Valve: The aortic valve is trileaflet. There is no evidence of aortic regurgitation. There is no evidence of aortic stenosis. Mitral Valve: The mitral valve leaflets appear normal. There is trace of mitral regurgitation. There is no evidence of mitral stenosis. Tricuspid Valve: The tricuspid valve leaflets are normal. There is mild to moderate tricuspid regurgitation. The right ventricular systolic pressure is calculated at 31 mmHg. There is evidence of mild pulmonary hypertension. Pulmonic Valve: There is trace pulmonic regurgitation. Pericardium: There is no pericardial effusion. Aorta: There is no dilatation of the ascending aorta. There is no dilatation of the aortic root. Venous: The inferior vena cava appears normal in size. Measurements Chambers 2D Name Value Normal Range IVSd (2D) 0.81 cm (0.6 - 1.1) LVPWd (2D) 0.79 cm (0.6 - 1.1) LVIDd (2D) 4.22 cm (3.7 - 5.6) LVIDs (2D) 3.1 cm (2 - 3.8) LV FS (2D) 26.71 % - EF Teichholz (2D) 52.55 % - Ao root diameter (2D) 3.34 cm (2 - 3.7) Volumes/Mass Name Value Normal Range LA ESV SP 4CH (A/L) 10.87 ml - LA ESV SP 2CH (A/L) 18.74 ml - LA ESV BP (A/L) 16.38 ml - LA ESV BP (A/L) index 8.62 ml/m2 - LA ESV SP 4CH (MOD) 10.32 ml - LA ESV SP 2CH (MOD) 17.66 ml - LA ESV BP (MOD) 15.12 ml - LA ESV BP (MOD) index 7.96 ml/m2 - Diastolic/Systolic Function Name Value Normal Range MV E-wave Vmax 0.76 m/sec - MV deceleration time 133.63 msec - MV A-wave Vmax 1.1 m/sec - MV E:A ratio 0.69 ratio - Aortic Valve Name Value Normal Range AV Vmax 1.44 m/sec - AV VTI 22.94 cm - AV peak gradient 8.33 mmHg - AV mean gradient 4.73 mmHg - LVOT diameter 2.2 cm - LVOT Vmax 1.04 m/sec - LVOT VTI 18.88 cm - LVOT peak gradient 4.34 mmHg - LVOT mean gradient 2.31 mmHg - SV LVOT 72.05 ml - EVANGELISTA (continuity Vmax) 2.75 cm2 - EVANGELISTA (continuity VTI) 3.14 cm2 - Tricuspid Valve Name Value Normal Range TR Vmax 2.64 m/sec - TR peak gradient 28 mmHg - RAP 3 mmHg - RVSP 31 mmHg - Gupta/IV: Voiding Method Indwelling Catheter IV Catheter Type [Left Peripheral IV Antecubital] Active Medications - Current Medications Current Medications: Generic Name Dose Route Start Last Admin Trade Name Deisy PRN Reason Stop Dose Admin Acetaminophen 650 mg 11/15/20 23:55 12/16/20 11:55 Acetaminophen 325 Mg Tab PO 650 mg Q4H PRN Administration Pain MILD(1-3)/Fever >100.5/BUTTS Lipase/Protease/Amylase 1 each 11/23/20 11:53 12/05/20 23:45 Lipase 10,500/Protease 25,000/Amylase 43,750 (Units) Dr Slater FEEDTUBE 1 each PRN PRN Administration For Clogged Feeding Tube Dextrose 25 ml 12/10/20 05:21 12/10/20 05:24 Dextrose 50% In Water (25gm) 50 Ml Syringe IV 25 ml Q30MIN PRN Administration Hypoglycemia Protocol Enoxaparin Sodium 40 mg 12/03/20 22:00 12/15/20 21:43 Enoxaparin 40 Mg/0.4 Ml Inj SUB-Q 40 mg QDAY@2200 RAEANN Administration Famotidine 20 mg 12/16/20 10:00 12/16/20 11:56 Famotidine 20 Mg Tab PO 20 mg BID RAEANN Administration Fentanyl 50 mcg 11/21/20 21:53 12/14/20 15:04 Fentanyl 100 Mcg/2 Ml Inj IV 50 mcg Q10MIN PRN Administration ANALGESIA Hydrophilic Ointment 1 applic 11/21/20 21:53 11/30/20 21:33 Lip Therapy Vaseline TP 1 applic Q2HR PRN Administration Dry Lips Fentanyl Citrate 2,000 mcg in 100 mls @ 3.625 mls/hr 11/21/20 22:00 12/16/20 07:32 Fentanyl Drip Premix IV 4 mcg/kg/hr TITR RAEANN 14.5 mls/hr Administration Protocol 1 MCG/KG/HR Midazolam HCl 100 mg/ Sodium 100 mls @ 2 mls/hr 11/21/20 22:00 12/15/20 23:45 Chloride IV 5 mg/hr TITR RAEANN 5 mls/hr Titration Protocol 2 MG/HR Norepinephrine 4 mg in 250 mls @ 7.5 mls/hr 11/22/20 17:00 12/16/20 07:32 Levophed Drip 4 Mg/Ns 250 Ml IV 10 mcg/min TITR RAEANN 37.5 mls/hr Administration Protocol 2 MCG/MIN Propofol 1,000 mg in 100 mls @ 2.175 mls/hr 11/27/20 12:00 12/11/20 17:55 Diprivan 10 Mg/Ml IV 0 mcg/kg/min TITR RAEANN 0 mls/hr Titration Protocol 5 MCG/KG/MIN Dexmedetomidine HCl 400 mcg/ 104 mls @ 4.441 mls/hr 12/10/20 13:00 12/16/20 08:58 Sodium Chloride IV 0.6 mcg/kg/hr TITRATE RAEANN 13.322 mls/hr Administration Protocol 0.2 MCG/KG/HR Insulin Glargine 5 units 12/14/20 22:00 12/15/20 21:43 Insulin Glargine 100 Units/Ml SUB-Q 5 units QHS RAEANN Administration Insulin Human Lispro 0 unit 02/07/21 06:00 12/16/20 11:56 Insulin Lispro 100 Unit/Ml SUB-Q 6 unit Q6HR RAEANN Administration Protocol Methylprednisolone Sodium Succinate 20 mg 12/15/20 10:00 12/16/20 09:02 Methylprednisolone Sod Succinate 40 Mg/1 Ml Inj IV 12/18/20 10:01 20 mg Q24HR RAEANN Administration Metoclopramide HCl 10 mg 11/15/20 23:55 Metoclopramide 10 Mg/2 Ml Inj IV Q6H PRN Nausea And Vomiting Multi-Ingred Cream/Lotion/Oil/Oint 1 applic 11/21/20 21:53 Mineral Oil/Petrolatum, White Ophth Oint 3.5 Gm OU Q4HR PRN Dry Eye(s) Ondansetron HCl 4 mg 11/15/20 23:55 Ondansetron 4 Mg/2 Ml Inj IV Q8H PRN Nausea And Vomiting Prednisone 10 mg 12/19/20 10:00 Prednisone 10 Mg Tab PO 12/22/20 10:01 QDAY RAEANN Senna/Docusate Sodium 2 tab 12/03/20 13:00 12/16/20 09:02 Sennosides/Docusate Sodium 8.6/50 Mg Tab PO 2 tab BID RAEANN Administration Simple Syrup 15 ml 11/23/20 11:53 Simple Syrup 15 Ml FEEDTUBE PRN PRN Hypoglycemia Simple Syrup 30 ml 11/23/20 11:53 Simple Syrup 15 Ml FEEDTUBE PRN PRN Hypoglycemia Sodium Bicarbonate 325 mg 11/23/20 11:53 12/05/20 23:46 Sodium Bicarbonate 325 Mg Tab FEEDTUBE 325 mg PRN PRN Administration For Clogged Feeding Tube Sodium Chloride 10 ml 11/16/20 10:00 12/16/20 09:04 Sodium Chloride 0.9% 10 Ml Flush Syringe IV 10 ml BID RAEANN Administration Sodium Chloride 10 ml 11/15/20 23:55 12/03/20 00:21 Sodium Chloride 0.9% 10 Ml Flush Syringe IV 10 ml PRN PRN Administration LINE FLUSH Nutrition/Malnutrition Assess - Dietary Evaluation Nutrition/Malnutrition Findings: Nutrition Notes Start: 11/20/20 12:03 Freq: Status: Active Protocol: Document 12/09/20 11:11 AL (Rec: 12/09/20 11:25 AL [id number]) Co-Sign 12/09/20 11:11 LP Nutrition Notes Initial or Follow up Reassessment Current Diagnosis Diabetes,Sepsis,Respiratory Failure Other Pertinent Diagnosis Bilat pneu, COVID-19 (+) Current Diet Glucerna 1.2 at 60 ml/hr Labs/Tests Na 134 Cr .3 Pertinent Medications Propofol at 13.05 ml/hr (344 kcal) Solumedrol Senokot S Height 5 ft 6 in Weight 85.4 kg Usual Body Weight 80.5 kg [place] Body Weight (kg) 64.54 BMI 30.4 Weight Status Overweight Subjective/Other Information F/U for TF tolerance. Pt tolerating TF at 60 ml/hr ( goal rate) Percent of energy/protein needs met: 100%/100% Burn Absent Trauma Absent GI Symptoms Last BM Difficulty In Swallowing,Chewing Food Allergy No Current % PO Negligible Minimum of two criteria Yes Energy Intake (severe) < or equal to 50% Estimated Energy Requirement > or equal to 5 days Interpretation of Weight Loss (severe) >2% in 1 week Fluid Accumulation Moderate to Severe (severe) #3 Nutrition Diagnosis Inadequate oral intake Diagnosis Progress(for reassessment Continues documentation) #2 Nutrition Diagnosis Malnutrition Diagnosis Progress(for reassessment Continues documentation) #1 Nutrition Diagnosis Unintended weight loss Diagnosis Progress(for reassessment Continues documentation) Is patient on ventilator? Yes Is Patient Ambulatory and/or Out of Bed No REE-([facility]-confined to bed) 1944.648 Kcal/Kg value to use for calculation 21 Approximate Energy Requirements Using 1793 kcal/Kg Calculation Used for Recommendations Kcal/kg Additional Notes Protein: 87-145 g/day (1.2-2g/ kg) Fluid: 1ml/kcal or per MD Nutrition Intervention Change Diet Order: Continue TF Nutrition Support: Glucerna 1.2 at 60 ml/hr. Flush 100 ml q4h Kcal 1,728 Protein (gm) 86 Fluid (mL) 1,159 Goal #1 TF tolerance Goal #2 Meet at least 75% of energy and protein needs via TF Anticipated Discharge Needs: Unknown at this time Follow-Up By: 12/16/20 Additional Comments FU for TF tolerance <DEMETRIO GONZALEZ - Last Filed: 12/17/20 11:52> Assessment and Plan Assessment and plan: I saw and evaluated the patient. I agree with the findings and the plan of care as documented in the Nurse Practitioner's~note, with the following corrections and additions. The high probability of a clinically significant, sudden or life threatening deterioration of the [pulmonary] system(s) required my full and direct attention, intervention and personal management. The aggregate critical care time was [35] minutes. This time is in addition to time spent performing reported procedures but includes the following: [x] Data Review and interpretation [x] Patient assessment and monitoring of vital signs [x] Documentation [x] Medication orders and management Hospitalist Physical - Constitutional Vitals: Temp Pulse Resp BP Pulse Ox 99.5 F 101 H 30 H 85/50 95 12/17/20 07:19 12/17/20 09:45 12/17/20 09:45 12/17/20 09:45 12/17/20 09:45 HEART Score - HEART Score Troponin: Troponin T < 0.010 ng/mL (0.00-0.029) 12/11/20 06:30 Results - Labs CBC & Chem 7: 12/16/20 04:46 12/16/20 04:46 Labs: Laboratory Last Values WBC 9.7 K/mm3 (4.5-11.0) 12/16/20 04:46 RBC 3.48 M/mm3 (3.65-5.03) L 12/16/20 04:46 Hgb 10.6 gm/dl (11.8-15.2) L 12/16/20 04:46 Hct 31.5 % (35.5-45.6) L 12/16/20 04:46 MCV 90 fl (84-94) 12/16/20 04:46 MCH 30 pg (28-32) 12/16/20 04:46 MCHC 34 % (32-34) 12/16/20 04:46 RDW 15.8 % (13.2-15.2) H 12/16/20 04:46 Plt Count 317 K/mm3 (140-440) 12/16/20 04:46 Lymph % (Auto) 2.0 % (13.4-35.0) L 11/27/20 06:25 [place] % (Auto) 5.2 % (0.0-7.3) 11/27/20 06:25 Eos % (Auto) 0.0 % (0.0-4.3) 11/27/20 06:25 Baso % (Auto) 0.1 % (0.0-1.8) 11/27/20 06:25 Lymph # (Auto) 0.3 K/mm3 (1.2-5.4) L 11/27/20 06:25 [place] # (Auto) 0.7 K/mm3 (0.0-0.8) 11/27/20 06:25 Eos # (Auto) 0.0 K/mm3 (0.0-0.4) 11/27/20 06:25 Baso # (Auto) 0.0 K/mm3 (0.0-0.1) 11/27/20 06:25 Add Manual Diff Complete 12/14/20 04:35 Total Counted 100 12/14/20 04:35 Seg Neutrophils % Doctor Of Naturopathic Medicine 12/14/20 04:35 Seg Neuts % (Manual) 93.0 % (40.0-70.0) H 12/14/20 04:35 Band Neutrophils % 2.0 % 12/13/20 11:30 Lymphocytes % (Manual) 3.0 % (13.4-35.0) L 12/14/20 04:35 Monocytes % (Manual) 4.0 % (0.0-7.3) 12/14/20 04:35 Nucleated RBC % Not Reportable 12/14/20 04:35 Seg Neutrophils # 12.7 K/mm3 (1.8-7.7) H 11/27/20 06:25 Seg Neutrophils # Man 7.8 K/mm3 (1.8-7.7) H 12/14/20 04:35 Band Neutrophils # 0.0 K/mm3 12/14/20 04:35 Lymphocytes # (Manual) 0.3 K/mm3 (1.2-5.4) L 12/14/20 04:35 Abs React Lymphs (Man) 0.0 K/mm3 12/14/20 04:35 Monocytes # (Manual) 0.3 K/mm3 (0.0-0.8) 12/14/20 04:35 Eosinophils # (Manual) 0.0 K/mm3 (0.0-0.4) 12/14/20 04:35 Basophils # (Manual) 0.0 K/mm3 (0.0-0.1) 12/14/20 04:35 Metamyelocytes # 0.0 K/mm3 12/14/20 04:35 Myelocytes # 0.0 K/mm3 12/14/20 04:35 Promyelocytes # 0.0 K/mm3 12/14/20 04:35 Blast Cells # 0.0 K/mm3 12/14/20 04:35 WBC Morphology Not Reportable 12/14/20 04:35 Hypersegmented Neuts Not Reportable 12/14/20 04:35 Hyposegmented Neuts Not Reportable 12/14/20 04:35 Hypogranular Neuts Not Reportable 12/14/20 04:35 Smudge Cells Not Reportable 12/14/20 04:35 Toxic Granulation Not Reportable 12/14/20 04:35 Toxic Vacuolation Not Reportable 12/14/20 04:35 Dohle Bodies Not Reportable 12/14/20 04:35 Pelger-Huet Anomaly Not Reportable 12/14/20 04:35 Tony Rods Not Reportable 12/14/20 04:35 Platelet Estimate Consistent w auto 12/14/20 04:35 Clumped Platelets Not Reportable 12/14/20 04:35 Plt Clumps, EDTA Not Reportable 12/14/20 04:35 Large Platelets Not Reportable 12/14/20 04:35 Giant Platelets Not Reportable 12/14/20 04:35 Platelet Satelliting Not Reportable 12/14/20 04:35 Plt Morphology Comment Not Reportable 12/14/20 04:35 RBC Morphology Not Reportable 12/14/20 04:35 Dimorphic RBCs Not Reportable 12/14/20 04:35 Polychromasia Not Reportable 12/14/20 04:35 Hypochromasia Few 12/14/20 04:35 Poikilocytosis Not Reportable 12/14/20 04:35 Anisocytosis Few 12/14/20 04:35 Microcytosis Not Reportable 12/14/20 04:35 Macrocytosis Not Reportable 12/14/20 04:35 Spherocytes Not Reportable 12/14/20 04:35 Pappenheimer Bodies Not Reportable 12/14/20 04:35 Sickle Cells Not Reportable 12/14/20 04:35 Target Cells Not Reportable 12/14/20 04:35 Tear Drop Cells Not Reportable 12/14/20 04:35 Ovalocytes Not Reportable 12/14/20 04:35 Stomatocytes 1+ 12/03/20 04:35 Helmet Cells Not Reportable 12/14/20 04:35 [place] Bodies Not Reportable 12/14/20 04:35 [place] Rings Not Reportable 12/14/20 04:35 Henrry Cells Not Reportable 12/14/20 04:35 Bite Cells Not Reportable 12/14/20 04:35 Crenated Cell Not Reportable 12/14/20 04:35 Elliptocytes Not Reportable 12/14/20 04:35 Acanthocytes (Spur) Not Reportable 12/14/20 04:35 Rouleaux Not Reportable 12/14/20 04:35 Hemoglobin C Crystals Not Reportable 12/14/20 04:35 Schistocytes Not Reportable 12/14/20 04:35 Malaria parasites Not Reportable 12/14/20 04:35 Yovani Bodies Not Reportable 12/14/20 04:35 Hem Pathologist Commnt No 12/14/20 04:35 D-Dimer 926.11 ng/mlDDU (0-234) H 11/26/20 06:04 ABG pH 7.375 (7.320-7.450) 12/17/20 03:59 POC ABG pCO2 71.9 mmHg (32.0-48.0) H 12/17/20 03:59 ABG pCO2 81.3 mm Hg 12/08/20 04:12 POC ABG pO2 57.5 mmHg (83-108) L 12/17/20 03:59 ABG pO2 69.7 mm Hg (80.0-90.0) L 12/08/20 04:12 POC ABG HCO3 41.1 12/17/20 03:59 ABG HCO3 50.1 mmol/L (20.0-26.0) H 12/08/20 04:12 ABG O2 Saturation 95.4 % (95.0-99.0) 12/08/20 04:12 ABG O2 Content 13.0 (0.0-44) 12/07/20 05:20 POC ABG Base Excess 13.3 12/17/20 03:59 ABG Base Excess 21.6 mmol/L (-2.0-3.0) H 12/08/20 04:12 ABG Hemoglobin 10.8 (12.0-17.5) L 12/17/20 03:59 ABG Oxyhemoglobin 87.7 (94-98) L 12/17/20 03:59 ABG Carboxyhemoglobin 2.0 % (0.0-5.0) 12/08/20 04:12 ABG Methemoglobin 0.3 (0.0-1.5) 12/17/20 03:59 ABG Sodium 131.5 mmol/L (136.0-145.0) L 12/17/20 03:59 ABG Potassium 4.3 mmol/L (3.40-4.50) 12/17/20 03:59 ABG Chloride 90.0 mmol/L (98-107) L 12/17/20 03:59 ABG Glucose 199 mg/dL (65-95) H 12/17/20 03:59 Oxyhemoglobin 93.2 % (95.0-99.0) L 12/08/20 04:12 Carboxyhemoglobin 1.2 (0.5-1.5) 12/17/20 03:59 FiO2 75 12/17/20 03:59 Sodium 134 mmol/L (137-145) L 12/16/20 04:46 Potassium 4.3 mmol/L (3.6-5.0) 12/16/20 04:46 Chloride 89.7 mmol/L (98-107) L 12/16/20 04:46 Carbon Dioxide 38 mmol/L (22-30) H 12/16/20 04:46 Anion Gap 11 mmol/L 12/16/20 04:46 BUN 9 mg/dL (9-20) 12/16/20 04:46 Creatinine < 0.2 mg/dL (0.8-1.3) L 12/16/20 04:46 Estimated GFR > 60 ml/min 12/16/20 04:46 BUN/Creatinine Ratio 45 % 12/16/20 04:46 Glucose 203 mg/dL (75-100) H 12/16/20 04:46 POC Glucose 159 mg/dL (70-105) H 12/17/20 05:35 Hemoglobin A1c 11.7 % (4-6) H 11/16/20 05:29 Lactic Acid 2.60 mmol/L (0.7-2.0) H* 11/16/20 05:29 Calcium 7.5 mg/dL (8.4-10.2) L 12/16/20 04:46 Phosphorus 2.90 mg/dL (2.5-4.5) 12/04/20 Unknown Magnesium 1.80 mg/dL (1.7-2.3) 12/14/20 04:35 Ferritin 778.8 ng/mL (30.0-300.0) H 11/26/20 04:00 Total Bilirubin 0.50 mg/dL (0.1-1.2) 12/13/20 11:30 AST 34 units/L (5-40) 12/13/20 11:30 ALT 61 units/L (7-56) H 12/13/20 11:30 Alkaline Phosphatase 117 units/L (35-129) 12/13/20 11:30 Lactate Dehydrogenase 288 units/L (91-180) H 11/26/20 04:00 Troponin T < 0.010 ng/mL (0.00-0.029) 12/11/20 06:30 C-Reactive Protein 1.40 mg/dL (0.00-1.30) H 11/26/20 04:00 NT-Pro-B Natriuret Pep 107.2 pg/mL (0-900) 11/17/20 10:21 Total Protein 5.7 g/dL (6.3-8.2) L 12/13/20 11:30 Albumin 2.3 g/dL (3.9-5) L 12/13/20 11:30 Albumin/Globulin Ratio 0.7 % 12/13/20 11:30 Triglycerides 150 mg/dL (2-149) H 12/12/20 05:16 Procalcitonin 0.16 ng/mL (<0.15) 12/12/20 05:16 Arterial Blood Glucose 199 mg/dL (65-95) H 12/17/20 03:59 Arterial Blood Ionized Calcium 4.4 mg/dL (4.6-5.3) L 12/17/20 03:59 Urine Color Faustina (Yellow) 11/16/20 01:45 Urine Turbidity Slightly-cloudy (Clear) 11/16/20 01:45 Urine pH 6.0 (5.0-7.0) 11/16/20 01:45 Ur Specific [place] 1.037 (1.003-1.030) H 11/16/20 01:45 Urine Protein 30 mg/dl mg/dL (Negative) 11/16/20 01:45 Urine Glucose (UA) >=500 mg/dL (Negative) 11/16/20 01:45 Urine Ketones 20 mg/dL (Negative) 11/16/20 01:45 Urine Blood Neg (Negative) 11/16/20 01:45 Urine Nitrite Neg (Negative) 11/16/20 01:45 Urine Bilirubin Neg (Negative) 11/16/20 01:45 Urine Urobilinogen 2.0 mg/dL (<2.0) 11/16/20 01:45 Ur Leukocyte Esterase Neg (Negative) 11/16/20 01:45 Urine WBC (Auto) 2.0 /HPF (0.0-6.0) 11/16/20 01:45 Urine RBC (Auto) 1.0 /HPF (0.0-6.0) 11/16/20 01:45 Urine Bacteria (Auto) 1+ /HPF (Negative) 11/16/20 01:45 Urine Mucus 3+ /HPF 11/16/20 01:45 Vancomycin Trough 4.0 ug/mL (5.0-20.0) L 11/29/20 15:40 Coronavirus (PCR) Positive (Negative) A 12/13/20 10:00 - Diagnostic Impressions Diagnostic Impressions: Echocardiogram 11/16/20 10:34 Transthoracic Echocardiogram Indication: Shortness of breath-COVID BP: 108/77 HR: 92 Conclusions *Global left ventricular systolic function is normal. *The estimated ejection fraction is 60-65%. *Mild to moderate concentric left ventricular hypertrophy is observed. *There is trace of mitral regurgitation. *There is mild to moderate tricuspid regurgitation. *There is evidence of mild pulmonary hypertension. *The right ventricular systolic pressure is calculated at 31 mmHg. Findings Left Ventricle: The left ventricular chamber size is normal. Mild to moderate concentric left ventricular hypertrophy is observed. Global left ventricular systolic function is normal. The estimated ejection fraction is 60-65%. Left Atrium: The left atrial chamber size is normal. Right Ventricle: The right ventricular cavity size is normal. The right ventricular global systolic function is normal. Right Atrium: The right atrial cavity size is normal. Aortic Valve: The aortic valve is trileaflet. There is no evidence of aortic regurgitation. There is no evidence of aortic stenosis. Mitral Valve: The mitral valve leaflets appear normal. There is trace of mitral regurgitation. There is no evidence of mitral stenosis. Tricuspid Valve: The tricuspid valve leaflets are normal. There is mild to moderate tricuspid regurgitation. The right ventricular systolic pressure is calculated at 31 mmHg. There is evidence of mild pulmonary hypertension. Pulmonic Valve: There is trace pulmonic regurgitation. Pericardium: There is no pericardial effusion. Aorta: There is no dilatation of the ascending aorta. There is no dilatation of the aortic root. Venous: The inferior vena cava appears normal in size. Measurements Chambers 2D Name Value Normal Range IVSd (2D) 0.81 cm (0.6 - 1.1) LVPWd (2D) 0.79 cm (0.6 - 1.1) LVIDd (2D) 4.22 cm (3.7 - 5.6) LVIDs (2D) 3.1 cm (2 - 3.8) LV FS (2D) 26.71 % - EF Teichholz (2D) 52.55 % - Ao root diameter (2D) 3.34 cm (2 - 3.7) Volumes/Mass Name Value Normal Range LA ESV SP 4CH (A/L) 10.87 ml - LA ESV SP 2CH (A/L) 18.74 ml - LA ESV BP (A/L) 16.38 ml - LA ESV BP (A/L) index 8.62 ml/m2 - LA ESV SP 4CH (MOD) 10.32 ml - LA ESV SP 2CH (MOD) 17.66 ml - LA ESV BP (MOD) 15.12 ml - LA ESV BP (MOD) index 7.96 ml/m2 - Diastolic/Systolic Function Name Value Normal Range MV E-wave Vmax 0.76 m/sec - MV deceleration time 133.63 msec - MV A-wave Vmax 1.1 m/sec - MV E:A ratio 0.69 ratio - Aortic Valve Name Value Normal Range AV Vmax 1.44 m/sec - AV VTI 22.94 cm - AV peak gradient 8.33 mmHg - AV mean gradient 4.73 mmHg - LVOT diameter 2.2 cm - LVOT Vmax 1.04 m/sec - LVOT VTI 18.88 cm - LVOT peak gradient 4.34 mmHg - LVOT mean gradient 2.31 mmHg - SV LVOT 72.05 ml - EVANGELISTA (continuity Vmax) 2.75 cm2 - EVANGELISTA (continuity VTI) 3.14 cm2 - Tricuspid Valve Name Value Normal Range TR Vmax 2.64 m/sec - TR peak gradient 28 mmHg - RAP 3 mmHg - RVSP 31 mmHg - Gupta/IV: Voiding Method Indwelling Catheter IV Catheter Type [Left Peripheral IV Antecubital] Active Medications - Current Medications Current Medications: Generic Name Dose Route Start Last Admin Trade Name Freq PRN Reason Stop Dose Admin Acetaminophen 650 mg 11/15/20 23:55 12/16/20 11:55 Acetaminophen 325 Mg Tab PO 650 mg Q4H PRN Administration Pain MILD(1-3)/Fever >100.5/BUTTS Lipase/Protease/Amylase 1 each 11/23/20 11:53 12/05/20 23:45 Lipase 10,500/Protease 25,000/Amylase 43,750 (Units) Dr Cap FEEDTUBE 1 each PRN PRN Administration For Clogged Feeding Tube Dextrose 25 ml 12/10/20 05:21 12/10/20 05:24 Dextrose 50% In Water (25gm) 50 Ml Syringe IV 25 ml Q30MIN PRN Administration Hypoglycemia Protocol Enoxaparin Sodium 40 mg 12/03/20 22:00 12/16/20 21:26 Enoxaparin 40 Mg/0.4 Ml Inj SUB-Q 40 mg QDAY@2200 RAEANN Administration Famotidine 20 mg 12/16/20 10:00 12/17/20 09:59 Famotidine 20 Mg Tab PO 20 mg BID RAEANN Administration Fentanyl 50 mcg 11/21/20 21:53 12/14/20 15:04 Fentanyl 100 Mcg/2 Ml Inj IV 50 mcg Q10MIN PRN Administration ANALGESIA Hydrophilic Ointment 1 applic 11/21/20 21:53 11/30/20 21:33 Lip Therapy Vaseline TP 1 applic Q2HR PRN Administration Dry Lips Fentanyl Citrate 2,000 mcg in 100 mls @ 3.625 mls/hr 11/21/20 22:00 12/17/20 03:19 Fentanyl Drip Premix IV 4 mcg/kg/hr TITR RAEANN 14.5 mls/hr Administration Protocol 1 MCG/KG/HR Midazolam HCl 100 mg/ Sodium 100 mls @ 2 mls/hr 11/21/20 22:00 12/17/20 09:00 Chloride IV 4 mg/hr TITR RAEANN 4 mls/hr Titration Protocol 2 MG/HR Norepinephrine 4 mg in 250 mls @ 7.5 mls/hr 11/22/20 17:00 12/17/20 09:00 Levophed Drip 4 Mg/Ns 250 Ml IV 4 mcg/min TITR RAEANN 15 mls/hr Titration Protocol 2 MCG/MIN Propofol 1,000 mg in 100 mls @ 2.175 mls/hr 11/27/20 12:00 12/11/20 17:55 Diprivan 10 Mg/Ml IV 0 mcg/kg/min TITR RAEANN 0 mls/hr Titration Protocol 5 MCG/KG/MIN Dexmedetomidine HCl 400 mcg/ 104 mls @ 4.441 mls/hr 12/10/20 13:00 12/17/20 07:59 Sodium Chloride IV 0.5 mcg/kg/hr TITRATE RAEANN 11.102 mls/hr Titration Protocol 0.2 MCG/KG/HR Insulin Glargine 5 units 12/14/20 22:00 12/16/20 21:29 Insulin Glargine 100 Units/Ml SUB-Q 5 units QHS RAEANN Administration Insulin Human Lispro 0 unit 11/22/20 06:00 12/17/20 06:31 Insulin Lispro 100 Unit/Ml SUB-Q 3 unit Q6HR RAEANN Administration Protocol Methylprednisolone Sodium Succinate 20 mg 12/15/20 10:00 12/17/20 09:59 Methylprednisolone Sod Succinate 40 Mg/1 Ml Inj IV 12/18/20 10:01 20 mg Q24HR RAEANN Administration Metoclopramide HCl 10 mg 11/15/20 23:55 Metoclopramide 10 Mg/2 Ml Inj IV Q6H PRN Nausea And Vomiting Multi-Ingred Cream/Lotion/Oil/Oint 1 applic 11/21/20 21:53 Mineral Oil/Petrolatum, White Ophth Oint 3.5 Gm OU Q4HR PRN Dry Eye(s) Ondansetron HCl 4 mg 11/15/20 23:55 Ondansetron 4 Mg/2 Ml Inj IV Q8H PRN Nausea And Vomiting Prednisone 10 mg 12/19/20 10:00 Prednisone 10 Mg Tab PO 12/22/20 10:01 QDAY RAEANN Senna/Docusate Sodium 2 tab 12/03/20 13:00 12/17/20 09:59 Sennosides/Docusate Sodium 8.6/50 Mg Tab PO 2 tab BID RAEANN Administration Simple Syrup 15 ml 11/23/20 11:53 Simple Syrup 15 Ml FEEDTUBE PRN PRN Hypoglycemia Simple Syrup 30 ml 11/23/20 11:53 Simple Syrup 15 Ml FEEDTUBE PRN PRN Hypoglycemia Sodium Bicarbonate 325 mg 11/23/20 11:53 12/05/20 23:46 Sodium Bicarbonate 325 Mg Tab FEEDTUBE 325 mg PRN PRN Administration For Clogged Feeding Tube Sodium Chloride 10 ml 11/16/20 10:00 12/17/20 10:31 Sodium Chloride 0.9% 10 Ml Flush Syringe IV Not Given BID RAEANN Sodium Chloride 10 ml 11/15/20 23:55 12/03/20 00:21 Sodium Chloride 0.9% 10 Ml Flush Syringe IV 10 ml PRN PRN Administration LINE FLUSH Nutrition/Malnutrition Assess - Dietary Evaluation Nutrition/Malnutrition Findings: Nutrition Notes Start: 11/20/20 12:03 Freq: Status: Active Protocol: Document 12/16/20 12:37 AL (Rec: 12/16/20 12:44 AL [id number]) Co-Sign 12/16/20 12:37 LP Nutrition Notes Initial or Follow up Reassessment Current Diagnosis Diabetes,Sepsis,Respiratory Failure Other Pertinent Diagnosis Bilat pneu, COVID-19 (+) Current Diet Glucerna 1.2 at 60 ml/hr Labs/Tests BG 203 Pertinent Medications Solumedrol Levophed Height 5 ft 6 in Weight 78.3 kg Usual Body Weight 80.5 kg [place] Body Weight (kg) 64.54 BMI 27.8 Weight change and time frame 10% wt loss/ 7days noted. Weight Status Overweight Subjective/Other Information FU for TF tolerance. Pt tolerating TF at 60 ml/hr ( goal rate). Will increase to 65 ml/hr to reflect wt change. Percent of energy/protein needs met: 100%/100% Burn Absent Trauma Absent GI Symptoms Last BM Difficulty In Swallowing,Chewing Current % PO Negligible Minimum of two criteria Yes Energy Intake (severe) < or equal to 50% Estimated Energy Requirement > or equal to 5 days Interpretation of Weight Loss (severe) >2% in 1 week Fluid Accumulation Moderate to Severe (severe) #3 Nutrition Diagnosis Inadequate oral intake Diagnosis Progress(for reassessment Continues documentation) #2 Nutrition Diagnosis Malnutrition Diagnosis Progress(for reassessment Continues documentation) #1 Nutrition Diagnosis Unintended weight loss Diagnosis Progress(for reassessment Continues documentation) Is patient on ventilator? Yes Is Patient Ambulatory and/or Out of Bed No REE-([facility]-confined to bed) 0739.532 Calculation Used for Recommendations [facility] Additional Notes Protein: 87-145 g/day (1.2-2g/ kg) Fluid: 1ml/kcal or per MD Nutrition Intervention Change Diet Order: Continue TF Nutrition Support: Glucerna 1.2 at 65 ml/hr. Flush 125 ml q4h Kcal 1,872 Protein (gm) 93 Fluid (mL) 1,255 Goal #1 TF Goal #2 Meet at least 75% of energy and protein needs via TF Anticipated Discharge Needs: Unknown at the time Follow-Up By: 12/21/20 Additional Comments FU for TF tolerance
[2020-12-16] MEDS: MIDAZOLAM 100 MG in SODIUM CHLORIDE 0.9% 80 ML IV SCH (13:48)
[2020-12-16] MEDS: ENOXAPARIN 40 MG/0.4 ML INJ SUB-Q SCH (21:26)
[2020-12-16] MEDS: INSULIN GLARGINE 100 UNITS/ML SUB-Q SCH (21:29)
[2020-12-17] MEDS: INSULIN LISPRO 100 UNIT/ML SUB-Q SCH ×4 (01:05→18:22)
[2020-12-17] MEDS: NORepinephrine/NS 4 MG-250 ML 4 MG/250 ML BAG IV SCH ×2 (03:16→15:30)
[2020-12-17] MEDS: fentaNYL DRIP Premix 2,000 MCG/100 ML BAG IV SCH ×4 (03:19→23:15)
--- NOTE | 2020-12-17 09:23 | Progress Note ---
Assessment and Plan 59 y/o male with acute respiratory failure, abnormal CXR and abnormal lab studies. 12/17/20: Back down to 75%. Febrile last night, if and when spikes again today, please obtain blood cultures times 2 and urine. Will go ahead and order repeat CXR now. Prognosis still remains guarded. 12/16/20: Back up to 100%. Once stabilized will attempt to wean back down. ABG in the am and may need to consider repeat ABG later this afternoon pending clinical state. Unable to prone given bilateral chest tubes. Prognosis remains guarded to poor. 12/15/20: Tolerating weaning from yesterday. RT to attempt to wean some more today. Kidney function remains unchanged. Guarded prognosis. 12/14/20: Unable to wean FiO2 today. Continue supportive measures. Great that his kidney function has maintained but given the amount of oxygen he continues to require, his chances of recovery continue to decrease. Family aware and will up date them as needed. Very very guarded prognosis. 12/13/20: WIll start Weaning FiO2 again tomorrow morning of PaO2 remains this good. Continue all other supportive measures. Guarded prognosis. Monitor renal function closely. 12/12/20: Long discussion with brother at door. Patient remains full code which is not unreasonable but family is realistic about outcome being poor. Will continue all supportive measures. IF clinical state worsens, will ask family to come back to see patient. Guarded Prognosis. 12/11/20: Will attempt to wean Diprovan off and increase precedex. Triglycerides were ok. IF we have to support with pressors we will but I have asked nursing to please be detailed in their checkouts as to why they did certain things with the continuous drips. Continue supportive measures. Brot her is going to try to come and see him from [place] 12/10/20: No acute events overnight. Patient has had waxing and waning of the amount of oxygen he has required over the last 24-72 hours. I have a bad feeling that he is on the brink of cardiac arrest and this could happen at any moment. I am going to reach out to the brother today to explain to him my concerns. Patient is a full code. Very very guarded prognosis. 12/09/20: Repeat ABG later today. Wean FiO2 for sats >88%. Repeat CXR as well. With BP dropping could be relative adrenal insufficiency, will watch for now, however if pressor requirement increases would consider stress dose steroids and maybe volume replacement. Follow up cultures. Guarded prognosis. 12/08/20: Increase TV to 425. Drop FiO2 to 65% and wean for sats >88%. COntinue chest tubes. Change steroids to 20q12. 12/07/20: CXR is stable, no indication for another chest tube at this time. Will repeat ABG in 1 hour post change to 70% and wean accordingly. Dropping steroids to 20q8. Guarded prognosis. Same weaning parameters apply today as of 12/04/20 12/04/20: Continue to wean steroids to off. Continue to wean FiO2 for sats >88%. Keep PEEP at current level, would not feel comfortable weaning PEEP until FiO2 at 35-40%. Continue chest tubes to suction. PaO2 of >55, pH of >7.2 and sats >88% are acceptable. : Dropped steroids down to 40q8 and will start to wean from there. Continue to slowly wean FiO2 first, keep PEEP at current level. Spoke with Kehinde, please see my event note, who is the biological brother. He had no questions but thanked us for our care. Prognosis remains very very guarded. PaO2 of 55 and pH of >7.2 and sats of >88% are all acceptable. 12/02/20: Wean FiO2 for sats >88% and PaO2 >55. Unable to prone currently secondary to bilateral chest tubes. COntinue high dose steroids. CM To figure out who is the immediate next of kin that can make decisions and then we will discuss the current clinical situation with them. 12/01/20: Continue PEEP and FiO2 elevated to keep sats >88% and PaO2 >55. Small lung volumes and high PEEP. very very guarded prognosis. 11/30/20: Worsening hypoxemia. Chest tubes stable. Likely just worsening disease. Unable to prone now. Increase PEEP to 18 and FiO2 back up to 100. Continue 3 sedatives for RASS of -2. Obtain 12 lead to look at T waves as K was only 4.6 on yesterday. Guarded, guarded prognosis 11/29/20: Second chest tube in on yesterday. CXR is stable. ABG unchanged. Will likely increase PEEP now that chest tubes are in. No further paralytics. Still making good urine. Prognosis remains guarded. Will check chemistry to assess Potassium levels given peaked t's seen on monitor. 11/28/20: Second chest tube today. Once chest tube in, will likely increase PEEP to 18 and repeat gas about 2 hours after this. Continue paralytic today. No proning now that patient will have bilateral chest tubes. VEry guarded pr ognosis. 11/27/20: Spoke with surgery who have agreed to evaluate and placed chest tube on either right or left side pending CXR reading. Will monitor for 36-48 hours and if no resolution, will need chest tube placed on opposite side as well. Once placed, will likely paralyze again but hold on proning for now. Guarded prognosis. 11/26/20: Paralytics are off. Continue current level of sedation. Will prone for 12 hours today and repeat ABG in the am. Continue lung protective strategy. Guarded prognosis. 11/25/20: Prone again to 16 hours, will prone at 12-12:30. Continue paralytics for 24 more hours. Discussed the idea of permissive hypercapnea again today and as long as pH is above 7.2 no changes should be made to TV and or RR without discussing with physician. Continue to monitor urine output, guarded prognosis. Hold on lasix therapy today. 11/24/20: Prone again today. Will try 48 hours of paralyzing the patient to see if this will help with oxygenation. Will speak with RT's about permissive hypercapnea and that pH's of 7.2 and greater are ok. Continue high doses richelle roids. Prognosis is still very very guarded. If not improvement with paralytics, will attempt transfer. 11/23/20: Prone again today for 12 hours. Continue High Dose steroids. Hold on lasix given marginal BP's. Prognosis is very very guarded to poor. Will continue all supportive measures. If not able to wean from 100%, will attempt transfer for ECMO. 11/20/20: WIll change to solumedrol 60q6 today. Hold on lasix today. Given his increasing oxygen requirement, will likely end up intubated. OVerall prognosis is very poor. 11/19/20: lasix 40mg IV x1 today. Will speak with ID but may consider increasing steroids to see if this will help with oxygenation. Continue Remdesivir. Prognosis remains guarded. 11/18/20: Continue bipap, goal is to attempt to prevent prolong intubation for as long as possible. Lasix again today. Steroids and Remdesivir. Guarded Prognosis. 11/17/20: Continue bipap therapy. Monitor mental state. High risk for Intubation. Continue BID anticoagulation. Prone if able. BNP was elevated but not grossly elevated. Will still give lasix with hopes of achieving net negative state. STeroids and remdesivir. Overall prognosis is guarded, extremely guarded. 1. Pulm- Agree with concern for covid. Agree with empiric abx but procal is only mildly elevated. Await cultures. Continue bipap therapy for now but will need to monitor closely. [facility] has ordered CTA, but I spoke with pharmacy and we will empirically treat with BID lovenox therapy. COntinue empiric steroid therapy for COVID until studies back. Not sure that he will be able to prone on bipap therapy. Monitor volume status and run as dry as possible. 2. Renal-normal function but all electrolytes abnormal. HYponatremia and Hypochloremia volume up vs volume down. Sent BNP. Would suggest obtaning echo as well. Not sure what to make of elevated lactate unless that is from increase d work of breathing or damage to other tissue unknown. May need to check LFT's and Coags as well. 3. Guarded Prognosis. CCT 31 minutes. Subjective Date of service: 12/17/20 Principal diagnosis: COVID-19 Interval history: No acute events. Back down to 75% Objective Vital Signs - 12hr 12/16/20 12/16/20 12/16/20 21:30 21:47 22:00 Temperature Pulse Rate 104 H 99 H 97 H Pulse Rate [ From Monitor] Respiratory 14 15 30 H Rate Blood Pressure 94/55 140/83 140/83 O2 Sat by Pulse 95 92 96 Oximetry 12/16/20 12/16/20 12/16/20 22:11 22:30 23:00 Temperature Pulse Rate 108 H 103 H 104 H Pulse Rate [ From Monitor] Respiratory 30 H 30 H 30 H Rate Blood Pressure 143/87 148/87 O2 Sat by Pulse 94 96 95 Oximetry 12/16/20 12/17/20 12/17/20 23:30 00:00 00:10 Temperature 99.7 F H Pulse Rate 99 H 113 H 85 Pulse Rate [ 112 H From Monitor] Respiratory 30 H 15 Rate Blood Pressure 135/82 149/92 92/52 O2 Sat by Pulse 97 96 96 Oximetry 12/17/20 12/17/20 12/17/20 00:30 01:00 01:30 Temperature Pulse Rate 114 H 109 H 104 H Pulse Rate [ From Monitor] Respiratory 22 30 H 30 H Rate Blood Pressure 152/91 142/80 146/87 O2 Sat by Pulse 92 94 95 Oximetry 12/17/20 12/17/20 12/17/20 02:00 02:30 03:00 Temperature Pulse Rate 96 H 97 H 85 Pulse Rate [ From Monitor] Respiratory 30 H 30 H 30 H Rate Blood Pressure 131/73 104/59 97/53 O2 Sat by Pulse 95 95 95 Oximetry 12/17/20 12/17/20 12/17/20 03:30 03:48 04:00 Temperature 99.3 F Pulse Rate 88 82 71 Pulse Rate [ 84 From Monitor] Respiratory 30 H 30 H Rate Blood Pressure 95/54 92/52 O2 Sat by Pulse 95 96 95 Oximetry 12/17/20 12/17/20 12/17/20 04:30 05:00 05:30 Temperature Pulse Rate 80 83 102 H Pulse Rate [ From Monitor] Respiratory 30 H 30 H 30 H Rate Blood Pressure 125/67 128/67 149/87 O2 Sat by Pulse 96 97 97 Oximetry 12/17/20 12/17/20 12/17/20 06:00 06:15 06:30 Temperature Pulse Rate 122 H 128 H 133 H Pulse Rate [ From Monitor] Respiratory 20 18 18 Rate Blood Pressure 161/96 159/100 163/97 O2 Sat by Pulse 94 94 91 Oximetry 12/17/20 12/17/20 12/17/20 06:45 07:00 07:15 Temperature Pulse Rate 129 H 128 H 125 H Pulse Rate [ From Monitor] Respiratory 13 16 30 H Rate Blood Pressure 157/96 154/91 156/97 O2 Sat by Pulse 93 93 92 Oximetry 12/17/20 12/17/20 12/17/20 07:19 07:30 07:45 Temperature 99.5 F Pulse Rate 131 H 134 H Pulse Rate [ From Monitor] Respiratory 15 20 Rate Blood Pressure 152/87 137/82 O2 Sat by Pulse 92 91 Oximetry 12/17/20 12/17/20 08:00 08:08 Temperature Pulse Rate 130 H 128 H Pulse Rate [ From Monitor] Respiratory 17 Rate Blood Pressure 137/82 121/68 O2 Sat by Pulse 92 91 Oximetry Constitutional: other (on vent orally intubated) ENT: other (Now intubated) Ascultation: Bilateral: rales, rhonchi Percussion: Bilateral: not dull Cardiovascular: regular rate and rhythm Gastrointestinal: soft, non-tender Neurologic: other (on vent) CBC and BMP: 12/16/20 04:46 12/16/20 04:46 ABG, PT/INR, D-dimer: ABG ABG pH 7.375 (7.320-7.450) 12/17/20 03:59 POC ABG pCO2 71.9 mmHg (32.0-48.0) H 12/17/20 03:59 ABG pCO2 81.3 mm Hg 12/08/20 04:12 POC ABG pO2 57.5 mmHg (83-108) L 12/17/20 03:59 ABG pO2 69.7 mm Hg (80.0-90.0) L 12/08/20 04:12 POC ABG HCO3 41.1 12/17/20 03:59 ABG O2 Saturation 95.4 % (95.0-99.0) 12/08/20 04:12 PT/INR, D-dimer D-Dimer 926.11 ng/mlDDU (0-234) H 11/26/20 06:04 Abnormal lab findings: Abnormal Labs 11/15/20 11/15/20 11/15/20 10:39 10:39 10:39 WBC 14.3 H RBC 5.17 H Hgb Hct RDW Plt Count Lymph % (Auto) 7.8 L [place] % (Auto) 7.6 H Lymph # (Auto) 1.1 L [place] # (Auto) 1.1 H Baso # (Auto) Seg Neutrophils % 83.3 H Seg Neuts % (Manual) Lymphocytes % (Manual) Seg Neutrophils # 11.9 H Seg Neutrophils # Man Lymphocytes # (Manual) D-Dimer ABG pH POC ABG pCO2 POC ABG pO2 ABG pO2 ABG HCO3 ABG O2 Saturation ABG Base Excess ABG Hemoglobin ABG Oxyhemoglobin ABG Sodium ABG Potassium ABG Chloride ABG Glucose Oxyhemoglobin Carboxyhemoglobin Sodium 128 L Potassium Chloride 96.0 L Carbon Dioxide BUN Creatinine 0.7 L Glucose 238 H POC Glucose Hemoglobin A1c Lactic Acid 4.10 H* Calcium 7.0 L Ferritin Total Bilirubin 1.40 H AST 49 H ALT 70 H Alkaline Phosphatase Lactate Dehydrogenase 663 H C-Reactive Protein 19.80 H Total Protein Albumin 2.9 L Triglycerides Arterial Blood Glucose Arterial Blood Ionized Calcium Ur Specific Starr Vancomycin Trough Coronavirus (PCR) 11/15/20 11/15/20 11/15/20 10:39 10:39 11:20 WBC RBC Hgb Hct RDW Plt Count Lymph % (Auto) [place] % (Auto) Lymph # (Auto) [place] # (Auto) Baso # (Auto) Seg Neutrophils % Seg Neuts % (Manual) Lymphocytes % (Manual) Seg Neutrophils # Seg Neutrophils # Man Lymphocytes # (Manual) D-Dimer > 47219 H ABG pH POC ABG pCO2 29.9 L POC ABG pO2 137.3 H ABG pO2 ABG HCO3 ABG O2 Saturation ABG Base Excess ABG Hemoglobin ABG Oxyhemoglobin ABG Sodium 126.5 L ABG Potassium ABG Chloride ABG Glucose 248 H Oxyhemoglobin Carboxyhemoglobin Sodium Potassium Chloride Carbon Dioxide BUN Creatinine Glucose POC Glucose Hemoglobin A1c Lactic Acid Calcium Ferritin 672.8 H Total Bilirubin AST ALT Alkaline Phosphatase Lactate Dehydrogenase C-Reactive Protein Total Protein Albumin Triglycerides Arterial Blood Glucose 248 H Arterial Blood Ionized Calcium 4.1 L Ur Specific Starr Vancomycin Trough Coronavirus (PCR) 11/15/20 11/15/20 11/16/20 13:41 23:41 01:45 WBC RBC Hgb Hct RDW Plt Count Lymph % (Auto) [place] % (Auto) Lymph # (Auto) [place] # (Auto) Baso # (Auto) Seg Neutrophils % Seg Neuts % (Manual) Lymphocytes % (Manual) Seg Neutrophils # Seg Neutrophils # Man Lymphocytes # (Manual) D-Dimer ABG pH POC ABG pCO2 POC ABG pO2 ABG pO2 ABG HCO3 ABG O2 Saturation ABG Base Excess ABG Hemoglobin ABG Oxyhemoglobin ABG Sodium ABG Potassium ABG Chloride ABG Glucose Oxyhemoglobin Carboxyhemoglobin Sodium Potassium Chloride Carbon Dioxide BUN Creatinine Glucose POC Glucose 284 H Hemoglobin A1c Lactic Acid 2.30 H* Calcium Ferritin Total Bilirubin AST ALT Alkaline Phosphatase Lactate Dehydrogenase C-Reactive Protein Total Protein Albumin Triglycerides Arterial Blood Glucose Arterial Blood Ionized Calcium Ur Specific Starr 1.037 H Vancomycin Trough Coronavirus (PCR) 11/16/20 11/16/20 11/16/20 05:29 05:29 05:29 WBC 12.9 H RBC Hgb Hct RDW Plt Count Lymph % (Auto) 4.5 L [place] % (Auto) Lymph # (Auto) 0.6 L [place] # (Auto) Baso # (Auto) 0.2 H Seg Neutrophils % 89.8 H Seg Neuts % (Manual) Lymphocytes % (Manual) Seg Neutrophils # 11.5 H Seg Neutrophils # Man Lymphocytes # (Manual) D-Dimer ABG pH POC ABG pCO2 POC ABG pO2 ABG pO2 ABG HCO3 ABG O2 Saturation ABG Base Excess ABG Hemoglobin ABG Oxyhemoglobin ABG Sodium ABG Potassium ABG Chloride ABG Glucose Oxyhemoglobin Carboxyhemoglobin Sodium 131 L Potassium Chloride Carbon Dioxide 21 L BUN 23 H Creatinine 0.6 L Glucose 342 H POC Glucose Hemoglobin A1c Lactic Acid 2.60 H* Calcium 7.0 L Ferritin Total Bilirubin AST ALT Alkaline Phosphatase Lactate Dehydrogenase C-Reactive Protein Total Protein Albumin 2.4 L Triglycerides Arterial Blood Glucose Arterial Blood Ionized Calcium Ur Specific Starr Vancomycin Trough Coronavirus (PCR) 11/16/20 11/16/20 11/16/20 05:29 08:11 12:11 WBC RBC Hgb Hct RDW Plt Count Lymph % (Auto) [place] % (Auto) Lymph # (Auto) [place] # (Auto) Baso # (Auto) Seg Neutrophils % Seg Neuts % (Manual) Lymphocytes % (Manual) Seg Neutrophils # Seg Neutrophils # Man Lymphocytes # (Manual) D-Dimer ABG pH POC ABG pCO2 POC ABG pO2 ABG pO2 ABG HCO3 ABG O2 Saturation ABG Base Excess ABG Hemoglobin ABG Oxyhemoglobin ABG Sodium ABG Potassium ABG Chloride ABG Glucose Oxyhemoglobin Carboxyhemoglobin Sodium Potassium Chloride Carbon Dioxide BUN Creatinine Glucose POC Glucose 329 H 320 H Hemoglobin A1c 11.7 H Lactic Acid Calcium Ferritin Total Bilirubin AST ALT Alkaline Phosphatase Lactate Dehydrogenase C-Reactive Protein Total Protein Albumin Triglycerides Arterial Blood Glucose Arterial Blood Ionized Calcium Ur Specific Starr Vancomycin Trough Coronavirus (PCR) 11/16/20 11/16/20 11/16/20 16:13 21:29 Unknown WBC RBC Hgb Hct RDW Plt Count Lymph % (Auto) [place] % (Auto) Lymph # (Auto) [place] # (Auto) Baso # (Auto) Seg Neutrophils % Seg Neuts % (Manual) Lymphocytes % (Manual) Seg Neutrophils # Seg Neutrophils # Man Lymphocytes # (Manual) D-Dimer ABG pH POC ABG pCO2 POC ABG pO2 ABG pO2 ABG HCO3 ABG O2 Saturation ABG Base Excess ABG Hemoglobin ABG Oxyhemoglobin ABG Sodium ABG Potassium ABG Chloride ABG Glucose Oxyhemoglobin Carboxyhemoglobin Sodium Potassium Chloride Carbon Dioxide BUN Creatinine Glucose POC Glucose 257 H 376 H Hemoglobin A1c Lactic Acid Calcium Ferritin Total Bilirubin AST ALT Alkaline Phosphatase Lactate Dehydrogenase C-Reactive Protein Total Protein Albumin Triglycerides Arterial Blood Glucose Arterial Blood Ionized Calcium Ur Specific Starr Vancomycin Trough Coronavirus (PCR) Positive A 11/17/20 11/17/20 11/17/20 07:42 12:07 17:25 WBC RBC Hgb Hct RDW Plt Count Lymph % (Auto) [place] % (Auto) Lymph # (Auto) [place] # (Auto) Baso # (Auto) Seg Neutrophils % Seg Neuts % (Manual) Lymphocytes % (Manual) Seg Neutrophils # Seg Neutrophils # Man Lymphocytes # (Manual) D-Dimer ABG pH POC ABG pCO2 POC ABG pO2 ABG pO2 ABG HCO3 ABG O2 Saturation ABG Base Excess ABG Hemoglobin ABG Oxyhemoglobin ABG Sodium ABG Potassium ABG Chloride ABG Glucose Oxyhemoglobin Carboxyhemoglobin Sodium Potassium Chloride Carbon Dioxide BUN Creatinine Glucose POC Glucose 231 H 380 H 302 H Hemoglobin A1c Lactic Acid Calcium Ferritin Total Bilirubin AST ALT Alkaline Phosphatase Lactate Dehydrogenase C-Reactive Protein Total Protein Albumin Triglycerides Arterial Blood Glucose Arterial Blood Ionized Calcium Ur Specific Starr Vancomycin Trough Coronavirus (PCR) 11/17/20 11/18/20 11/18/20 21:53 04:25 07:45 WBC RBC Hgb Hct RDW Plt Count Lymph % (Auto) [place] % (Auto) Lymph # (Auto) [place] # (Auto) Baso # (Auto) Seg Neutrophils % Seg Neuts % (Manual) Lymphocytes % (Manual) Seg Neutrophils # Seg Neutrophils # Man Lymphocytes # (Manual) D-Dimer ABG pH POC ABG pCO2 POC ABG pO2 ABG pO2 ABG HCO3 ABG O2 Saturation ABG Base Excess ABG Hemoglobin ABG Oxyhemoglobin ABG Sodium ABG Potassium ABG Chloride ABG Glucose Oxyhemoglobin Carboxyhemoglobin Sodium 136 L Potassium Chloride Carbon Dioxide BUN 24 H Creatinine 0.6 L Glucose 212 H POC Glucose 293 H 216 H Hemoglobin A1c Lactic Acid Calcium 7.4 L Ferritin Total Bilirubin AST 41 H ALT Alkaline Phosphatase 142 H Lactate Dehydrogenase C-Reactive Protein Total Protein Albumin 2.3 L Triglycerides Arterial Blood Glucose Arterial Blood Ionized Calcium Ur Specific Starr Vancomycin Trough Coronavirus (PCR) 11/18/20 11/18/20 11/18/20 12:28 15:58 21:37 WBC RBC Hgb Hct RDW Plt Count Lymph % (Auto) [place] % (Auto) Lymph # (Auto) [place] # (Auto) Baso # (Auto) Seg Neutrophils % Seg Neuts % (Manual) Lymphocytes % (Manual) Seg Neutrophils # Seg Neutrophils # Man Lymphocytes # (Manual) D-Dimer ABG pH POC ABG pCO2 POC ABG pO2 ABG pO2 ABG HCO3 ABG O2 Saturation ABG Base Excess ABG Hemoglobin ABG Oxyhemoglobin ABG Sodium ABG Potassium ABG Chloride ABG Glucose Oxyhemoglobin Carboxyhemoglobin Sodium Potassium Chloride Carbon Dioxide BUN Creatinine Glucose POC Glucose 165 H 220 H 311 H Hemoglobin A1c Lactic Acid Calcium Ferritin Total Bilirubin AST ALT Alkaline Phosphatase Lactate Dehydrogenase C-Reactive Protein Total Protein Albumin Triglycerides Arterial Blood Glucose Arterial Blood Ionized Calcium Ur Specific Starr Vancomycin Trough Coronavirus (PCR) 11/19/20 11/19/20 11/19/20 05:35 07:40 12:39 WBC RBC Hgb Hct RDW Plt Count Lymph % (Auto) [place] % (Auto) Lymph # (Auto) [place] # (Auto) Baso # (Auto) Seg Neutrophils % Seg Neuts % (Manual) Lymphocytes % (Manual) Seg Neutrophils # Seg Neutrophils # Man Lymphocytes # (Manual) D-Dimer ABG pH POC ABG pCO2 POC ABG pO2 ABG pO2 ABG HCO3 ABG O2 Saturation ABG Base Excess ABG Hemoglobin ABG Oxyhemoglobin ABG Sodium ABG Potassium ABG Chloride ABG Glucose Oxyhemoglobin Carboxyhemoglobin Sodium 132 L Potassium Chloride Carbon Dioxide BUN 25 H Creatinine 0.5 L Glucose 179 H POC Glucose 149 H 306 H Hemoglobin A1c Lactic Acid Calcium 7.5 L Ferritin Total Bilirubin AST ALT Alkaline Phosphatase 139 H Lactate Dehydrogenase C-Reactive Protein Total Protein Albumin 2.4 L Triglycerides Arterial Blood Glucose Arterial Blood Ionized Calcium Ur Specific Starr Vancomycin Trough Coronavirus (PCR) 11/19/20 11/19/20 11/20/20 16:17 21:25 08:30 WBC RBC Hgb Hct RDW Plt Count Lymph % (Auto) [place] % (Auto) Lymph # (Auto) [place] # (Auto) Baso # (Auto) Seg Neutrophils % Seg Neuts % (Manual) Lymphocytes % (Manual) Seg Neutrophils # Seg Neutrophils # Man Lymphocytes # (Manual) D-Dimer ABG pH POC ABG pCO2 POC ABG pO2 ABG pO2 ABG HCO3 ABG O2 Saturation ABG Base Excess ABG Hemoglobin ABG Oxyhemoglobin ABG Sodium ABG Potassium ABG Chloride ABG Glucose Oxyhemoglobin Carboxyhemoglobin Sodium Potassium Chloride Carbon Dioxide BUN Creatinine Glucose POC Glucose 364 H 347 H 141 H Hemoglobin A1c Lactic Acid Calcium Ferritin Total Bilirubin AST ALT Alkaline Phosphatase Lactate Dehydrogenase C-Reactive Protein Total Protein Albumin Triglycerides Arterial Blood Glucose Arterial Blood Ionized Calcium Ur Specific Starr Vancomycin Trough Coronavirus (PCR) 11/20/20 11/20/20 11/20/20 08:50 11:32 16:19 WBC RBC Hgb Hct RDW Plt Count Lymph % (Auto) [place] % (Auto) Lymph # (Auto) [place] # (Auto) Baso # (Auto) Seg Neutrophils % Seg Neuts % (Manual) Lymphocytes % (Manual) Seg Neutrophils # Seg Neutrophils # Man Lymphocytes # (Manual) D-Dimer ABG pH POC ABG pCO2 POC ABG pO2 ABG pO2 ABG HCO3 ABG O2 Saturation ABG Base Excess ABG Hemoglobin ABG Oxyhemoglobin ABG Sodium ABG Potassium ABG Chloride ABG Glucose Oxyhemoglobin Carboxyhemoglobin Sodium 132 L Potassium Chloride 97.6 L Carbon Dioxide BUN 26 H Creatinine 0.5 L Glucose 201 H POC Glucose 296 H 327 H Hemoglobin A1c Lactic Acid Calcium 7.9 L Ferritin Total Bilirubin AST ALT Alkaline Phosphatase 137 H Lactate Dehydrogenase C-Reactive Protein Total Protein Albumin 2.6 L Triglycerides Arterial Blood Glucose Arterial Blood Ionized Calcium Ur Specific Starr Vancomycin Trough Coronavirus (PCR) 11/20/20 11/21/20 11/21/20 22:09 07:59 13:51 WBC RBC Hgb Hct RDW Plt Count Lymph % (Auto) [place] % (Auto) Lymph # (Auto) [place] # (Auto) Baso # (Auto) Seg Neutrophils % Seg Neuts % (Manual) Lymphocytes % (Manual) Seg Neutrophils # Seg Neutrophils # Man Lymphocytes # (Manual) D-Dimer ABG pH POC ABG pCO2 POC ABG pO2 ABG pO2 ABG HCO3 ABG O2 Saturation ABG Base Excess ABG Hemoglobin ABG Oxyhemoglobin ABG Sodium ABG Potassium ABG Chloride ABG Glucose Oxyhemoglobin Carboxyhemoglobin Sodium Potassium Chloride Carbon Dioxide BUN Creatinine Glucose POC Glucose 311 H 218 H 304 H Hemoglobin A1c Lactic Acid Calcium Ferritin Total Bilirubin AST ALT Alkaline Phosphatase Lactate Dehydrogenase C-Reactive Protein Total Protein Albumin Triglycerides Arterial Blood Glucose Arterial Blood Ionized Calcium Ur Specific Starr Vancomycin Trough Coronavirus (PCR) 11/21/20 11/21/20 11/21/20 16:09 21:34 23:00 WBC RBC Hgb Hct RDW Plt Count Lymph % (Auto) [place] % (Auto) Lymph # (Auto) [place] # (Auto) Baso # (Auto) Seg Neutrophils % Seg Neuts % (Manual) Lymphocytes % (Manual) Seg Neutrophils # Seg Neutrophils # Man Lymphocytes # (Manual) D-Dimer ABG pH 7.206 L POC ABG pCO2 59.3 H POC ABG pO2 76.7 L ABG pO2 ABG HCO3 ABG O2 Saturation ABG Base Excess ABG Hemoglobin ABG Oxyhemoglobin ABG Sodium 133.1 L ABG Potassium ABG Chloride ABG Glucose 320 H Oxyhemoglobin Carboxyhemoglobin Sodium Potassium Chloride Carbon Dioxide BUN Creatinine Glucose POC Glucose 239 H 279 H Hemoglobin A1c Lactic Acid Calcium Ferritin Total Bilirubin AST ALT Alkaline Phosphatase Lactate Dehydrogenase C-Reactive Protein Total Protein Albumin Triglycerides Arterial Blood Glucose 320 H Arterial Blood Ionized Calcium Ur Specific Starr Vancomycin Trough Coronavirus (PCR) 11/22/20 11/22/20 11/22/20 04:52 04:52 04:52 WBC RBC Hgb Hct RDW Plt Count Lymph % (Auto) [place] % (Auto) Lymph # (Auto) [place] # (Auto) Baso # (Auto) Seg Neutrophils % Seg Neuts % (Manual) Lymphocytes % (Manual) Seg Neutrophils # Seg Neutrophils # Man Lymphocytes # (Manual) D-Dimer 1858.36 H ABG pH POC ABG pCO2 POC ABG pO2 ABG pO2 ABG HCO3 ABG O2 Saturation ABG Base Excess ABG Hemoglobin ABG Oxyhemoglobin ABG Sodium ABG Potassium ABG Chloride ABG Glucose Oxyhemoglobin Carboxyhemoglobin Sodium Potassium Chloride Carbon Dioxide BUN Creatinine Glucose POC Glucose Hemoglobin A1c Lactic Acid Calcium Ferritin 734.2 H Total Bilirubin AST ALT Alkaline Phosphatase Lactate Dehydrogenase 404 H C-Reactive Protein 2.80 H Total Protein Albumin Triglycerides Arterial Blood Glucose Arterial Blood Ionized Calcium Ur Specific Starr Vancomycin Trough Coronavirus (PCR) 11/22/20 11/22/20 11/22/20 05:12 05:39 11:50 WBC RBC Hgb Hct RDW Plt Count Lymph % (Auto) [place] % (Auto) Lymph # (Auto) [place] # (Auto) Baso # (Auto) Seg Neutrophils % Seg Neuts % (Manual) Lymphocytes % (Manual) Seg Neutrophils # Seg Neutrophils # Man Lymphocytes # (Manual) D-Dimer ABG pH POC ABG pCO2 POC ABG pO2 51.0 L ABG pO2 ABG HCO3 ABG O2 Saturation ABG Base Excess ABG Hemoglobin ABG Oxyhemoglobin ABG Sodium 131.2 L ABG Potassium 4.6 H ABG Chloride ABG Glucose 317 H Oxyhemoglobin Carboxyhemoglobin Sodium Potassium Chloride Carbon Dioxide BUN Creatinine Glucose POC Glucose 340 H 417 H Hemoglobin A1c Lactic Acid Calcium Ferritin Total Bilirubin AST ALT Alkaline Phosphatase Lactate Dehydrogenase C-Reactive Protein Total Protein Albumin Triglycerides Arterial Blood Glucose 317 H Arterial Blood Ionized Calcium 4.4 L Ur Specific Starr Vancomycin Trough Coronavirus (PCR) 11/22/20 11/22/20 11/22/20 12:22 12:22 17:10 WBC 14.4 H RBC Hgb Hct RDW Plt Count Lymph % (Auto) [place] % (Auto) Lymph # (Auto) [place] # (Auto) Baso # (Auto) Seg Neutrophils % Seg Neuts % (Manual) 98.0 H Lymphocytes % (Manual) Seg Neutrophils # Seg Neutrophils # Man 14.1 H Lymphocytes # (Manual) 0.0 L D-Dimer ABG pH POC ABG pCO2 POC ABG pO2 ABG pO2 ABG HCO3 ABG O2 Saturation ABG Base Excess ABG Hemoglobin ABG Oxyhemoglobin ABG Sodium ABG Potassium ABG Chloride ABG Glucose Oxyhemoglobin Carboxyhemoglobin Sodium 132 L Potassium Chloride Carbon Dioxide BUN 36 H Creatinine 0.6 L Glucose 219 H POC Glucose 157 H Hemoglobin A1c Lactic Acid Calcium 7.2 L Ferritin Total Bilirubin AST ALT Alkaline Phosphatase Lactate Dehydrogenase C-Reactive Protein Total Protein Albumin Triglycerides Arterial Blood Glucose Arterial Blood Ionized Calcium Ur Specific Starr Vancomycin Trough Coronavirus (PCR) 11/22/20 11/22/20 11/22/20 18:33 21:44 23:47 WBC RBC Hgb Hct RDW Plt Count Lymph % (Auto) [place] % (Auto) Lymph # (Auto) [place] # (Auto) Baso # (Auto) Seg Neutrophils % Seg Neuts % (Manual) Lymphocytes % (Manual) Seg Neutrophils # Seg Neutrophils # Man Lymphocytes # (Manual) D-Dimer ABG pH POC ABG pCO2 POC ABG pO2 60.8 L ABG pO2 ABG HCO3 ABG O2 Saturation ABG Base Excess ABG Hemoglobin ABG Oxyhemoglobin 88.1 L ABG Sodium 135.1 L ABG Potassium ABG Chloride ABG Glucose 141 H Oxyhemoglobin Carboxyhemoglobin Sodium Potassium Chloride Carbon Dioxide BUN Creatinine Glucose POC Glucose 117 H 123 H Hemoglobin A1c Lactic Acid Calcium Ferritin Total Bilirubin AST ALT Alkaline Phosphatase Lactate Dehydrogenase C-Reactive Protein Total Protein Albumin Triglycerides Arterial Blood Glucose 141 H Arterial Blood Ionized Calcium Ur Specific Starr Vancomycin Trough Coronavirus (PCR) 11/23/20 11/23/20 11/23/20 04:00 04:00 05:23 WBC 14.4 H RBC Hgb Hct RDW Plt Count Lymph % (Auto) [place] % (Auto) Lymph # (Auto) [place] # (Auto) Baso # (Auto) Seg Neutrophils % Seg Neuts % (Manual) Lymphocytes % (Manual) Seg Neutrophils # Seg Neutrophils # Man Lymphocytes # (Manual) D-Dimer ABG pH POC ABG pCO2 POC ABG pO2 ABG pO2 ABG HCO3 ABG O2 Saturation ABG Base Excess ABG Hemoglobin ABG Oxyhemoglobin ABG Sodium ABG Potassium ABG Chloride ABG Glucose Oxyhemoglobin Carboxyhemoglobin Sodium 136 L Potassium Chloride Carbon Dioxide BUN 33 H Creatinine 0.6 L Glucose 115 H POC Glucose 173 H Hemoglobin A1c Lactic Acid Calcium 7.1 L Ferritin Total Bilirubin AST 64 H ALT 75 H Alkaline Phosphatase Lactate Dehydrogenase C-Reactive Protein Total Protein 5.9 L D Albumin 2.4 L Triglycerides Arterial Blood Glucose Arterial Blood Ionized Calcium Ur Specific Starr Vancomycin Trough Coronavirus (PCR) 11/23/20 11/23/20 11/23/20 05:40 11:27 17:10 WBC RBC Hgb Hct RDW Plt Count Lymph % (Auto) [place] % (Auto) Lymph # (Auto) [place] # (Auto) Baso # (Auto) Seg Neutrophils % Seg Neuts % (Manual) Lymphocytes % (Manual) Seg Neutrophils # Seg Neutrophils # Man Lymphocytes # (Manual) D-Dimer ABG pH POC ABG pCO2 POC ABG pO2 56.5 L ABG pO2 ABG HCO3 ABG O2 Saturation ABG Base Excess ABG Hemoglobin ABG Oxyhemoglobin ABG Sodium ABG Potassium ABG Chloride 109.0 H ABG Glucose 114 H Oxyhemoglobin Carboxyhemoglobin Sodium Potassium Chloride Carbon Dioxide BUN Creatinine Glucose POC Glucose 114 H 136 H Hemoglobin A1c Lactic Acid Calcium Ferritin Total Bilirubin AST ALT Alkaline Phosphatase Lactate Dehydrogenase C-Reactive Protein Total Protein Albumin Triglycerides Arterial Blood Glucose 114 H Arterial Blood Ionized Calcium 4.5 L Ur Specific Starr Vancomycin Trough Coronavirus (PCR) 11/24/20 11/24/20 11/24/20 05:14 05:14 05:14 WBC RBC Hgb Hct RDW Plt Count Lymph % (Auto) [place] % (Auto) Lymph # (Auto) [place] # (Auto) Baso # (Auto) Seg Neutrophils % Seg Neuts % (Manual) Lymphocytes % (Manual) Seg Neutrophils # Seg Neutrophils # Man Lymphocytes # (Manual) D-Dimer 1433.39 H ABG pH POC ABG pCO2 POC ABG pO2 ABG pO2 ABG HCO3 ABG O2 Saturation ABG Base Excess ABG Hemoglobin ABG Oxyhemoglobin ABG Sodium ABG Potassium ABG Chloride ABG Glucose Oxyhemoglobin Carboxyhemoglobin Sodium Potassium Chloride Carbon Dioxide BUN Creatinine Glucose POC Glucose Hemoglobin A1c Lactic Acid Calcium Ferritin 997.5 H Total Bilirubin AST ALT Alkaline Phosphatase Lactate Dehydrogenase 463 H C-Reactive Protein Total Protein Albumin Triglycerides Arterial Blood Glucose Arterial Blood Ionized Calcium Ur Specific Starr Vancomycin Trough Coronavirus (PCR) 11/24/20 11/24/20 11/24/20 05:31 05:36 12:05 WBC RBC Hgb Hct RDW Plt Count Lymph % (Auto) [place] % (Auto) Lymph # (Auto) [place] # (Auto) Baso # (Auto) Seg Neutrophils % Seg Neuts % (Manual) Lymphocytes % (Manual) Seg Neutrophils # Seg Neutrophils # Man Lymphocytes # (Manual) D-Dimer ABG pH POC ABG pCO2 POC ABG pO2 57.2 L ABG pO2 ABG HCO3 ABG O2 Saturation ABG Base Excess ABG Hemoglobin ABG Oxyhemoglobin ABG Sodium ABG Potassium ABG Chloride ABG Glucose 180 H Oxyhemoglobin Carboxyhemoglobin Sodium Potassium Chloride Carbon Dioxide BUN Creatinine Glucose POC Glucose 199 H 143 H Hemoglobin A1c Lactic Acid Calcium Ferritin Total Bilirubin AST ALT Alkaline Phosphatase Lactate Dehydrogenase C-Reactive Protein Total Protein Albumin Triglycerides Arterial Blood Glucose 180 H Arterial Blood Ionized Calcium 4.5 L Ur Specific Starr Vancomycin Trough Coronavirus (PCR) 11/24/20 11/24/20 11/24/20 12:14 17:47 23:47 WBC RBC Hgb Hct RDW Plt Count Lymph % (Auto) [place] % (Auto) Lymph # (Auto) [place] # (Auto) Baso # (Auto) Seg Neutrophils % Seg Neuts % (Manual) Lymphocytes % (Manual) Seg Neutrophils # Seg Neutrophils # Man Lymphocytes # (Manual) D-Dimer ABG pH 7.261 L POC ABG pCO2 59.7 H POC ABG pO2 75.7 L ABG pO2 ABG HCO3 ABG O2 Saturation ABG Base Excess ABG Hemoglobin ABG Oxyhemoglobin 92.5 L ABG Sodium ABG Potassium ABG Chloride 108.0 H ABG Glucose 150 H Oxyhemoglobin Carboxyhemoglobin Sodium Potassium Chloride Carbon Dioxide BUN Creatinine Glucose POC Glucose 223 H 179 H Hemoglobin A1c Lactic Acid Calcium Ferritin Total Bilirubin AST ALT Alkaline Phosphatase Lactate Dehydrogenase C-Reactive Protein Total Protein Albumin Triglycerides Arterial Blood Glucose 150 H Arterial Blood Ionized Calcium Ur Specific Starr Vancomycin Trough Coronavirus (PCR) 11/25/20 11/25/20 11/25/20 03:29 05:07 05:15 WBC 13.9 H RBC Hgb Hct RDW Plt Count Lymph % (Auto) [place] % (Auto) Lymph # (Auto) [place] # (Auto) Baso # (Auto) Seg Neutrophils % Seg Neuts % (Manual) 97.0 H Lymphocytes % (Manual) Seg Neutrophils # Seg Neutrophils # Man 13.5 H Lymphocytes # (Manual) 0.0 L D-Dimer ABG pH 7.272 L POC ABG pCO2 69.0 H POC ABG pO2 132.9 H ABG pO2 ABG HCO3 ABG O2 Saturation ABG Base Excess ABG Hemoglobin ABG Oxyhemoglobin ABG Sodium ABG Potassium ABG Chloride ABG Glucose 174 H Oxyhemoglobin Carboxyhemoglobin Sodium Potassium Chloride Carbon Dioxide BUN Creatinine Glucose POC Glucose 168 H Hemoglobin A1c Lactic Acid Calcium Ferritin Total Bilirubin AST ALT Alkaline Phosphatase Lactate Dehydrogenase C-Reactive Protein Total Protein Albumin Triglycerides Arterial Blood Glucose 174 H Arterial Blood Ionized Calcium Ur Specific Starr Vancomycin Trough Coronavirus (PCR) 11/25/20 11/25/20 11/25/20 05:15 11:25 17:35 WBC RBC Hgb Hct RDW Plt Count Lymph % (Auto) [place] % (Auto) Lymph # (Auto) [place] # (Auto) Baso # (Auto) Seg Neutrophils % Seg Neuts % (Manual) Lymphocytes % (Manual) Seg Neutrophils # Seg Neutrophils # Man Lymphocytes # (Manual) D-Dimer ABG pH POC ABG pCO2 POC ABG pO2 ABG pO2 ABG HCO3 ABG O2 Saturation ABG Base Excess ABG Hemoglobin ABG Oxyhemoglobin ABG Sodium ABG Potassium ABG Chloride ABG Glucose Oxyhemoglobin Carboxyhemoglobin Sodium Potassium Chloride Carbon Dioxide BUN 29 H Creatinine 0.5 L Glucose 161 H POC Glucose 224 H 228 H Hemoglobin A1c Lactic Acid Calcium 7.8 L Ferritin Total Bilirubin AST 89 H ALT 129 H Alkaline Phosphatase Lactate Dehydrogenase C-Reactive Protein Total Protein 5.8 L Albumin 2.5 L Triglycerides Arterial Blood Glucose Arterial Blood Ionized Calcium Ur Specific Starr Vancomycin Trough Coronavirus (PCR) 11/25/20 11/25/20 11/26/20 20:45 23:28 04:00 WBC RBC Hgb Hct RDW Plt Count Lymph % (Auto) [place] % (Auto) Lymph # (Auto) [place] # (Auto) Baso # (Auto) Seg Neutrophils % Seg Neuts % (Manual) Lymphocytes % (Manual) Seg Neutrophils # Seg Neutrophils # Man Lymphocytes # (Manual) D-Dimer ABG pH POC ABG pCO2 POC ABG pO2 ABG pO2 ABG HCO3 ABG O2 Saturation ABG Base Excess ABG Hemoglobin ABG Oxyhemoglobin ABG Sodium ABG Potassium ABG Chloride ABG Glucose Oxyhemoglobin Carboxyhemoglobin Sodium Potassium Chloride Carbon Dioxide BUN Creatinine Glucose POC Glucose 177 H 243 H Hemoglobin A1c Lactic Acid Calcium Ferritin 778.8 H Total Bilirubin AST ALT Alkaline Phosphatase Lactate Dehydrogenase C-Reactive Protein Total Protein Albumin Triglycerides Arterial Blood Glucose Arterial Blood Ionized Calcium Ur Specific Starr Vancomycin Trough Coronavirus (PCR) 11/26/20 11/26/20 11/26/20 04:00 05:34 06:04 WBC RBC Hgb Hct RDW Plt Count Lymph % (Auto) [place] % (Auto) Lymph # (Auto) [place] # (Auto) Baso # (Auto) Seg Neutrophils % Seg Neuts % (Manual) Lymphocytes % (Manual) Seg Neutrophils # Seg Neutrophils # Man Lymphocytes # (Manual) D-Dimer 926.11 H ABG pH POC ABG pCO2 POC ABG pO2 ABG pO2 ABG HCO3 ABG O2 Saturation ABG Base Excess ABG Hemoglobin ABG Oxyhemoglobin ABG Sodium ABG Potassium ABG Chloride ABG Glucose Oxyhemoglobin Carboxyhemoglobin Sodium Potassium Chloride Carbon Dioxide 39 H D BUN 30 H Creatinine 0.5 L Glucose 193 H POC Glucose 178 H Hemoglobin A1c Lactic Acid Calcium 7.7 L Ferritin Total Bilirubin AST 65 H ALT 132 H Alkaline Phosphatase Lactate Dehydrogenase 288 H C-Reactive Protein 1.40 H Total Protein 5.7 L Albumin 2.4 L Triglycerides Arterial Blood Glucose Arterial Blood Ionized Calcium Ur Specific Starr Vancomycin Trough Coronavirus (PCR) 11/26/20 11/26/20 11/26/20 06:04 08:47 11:20 WBC 12.4 H RBC Hgb Hct RDW Plt Count Lymph % (Auto) [place] % (Auto) Lymph # (Auto) [place] # (Auto) Baso # (Auto) Seg Neutrophils % Seg Neuts % (Manual) 98.0 H Lymphocytes % (Manual) 1.0 L Seg Neutrophils # Seg Neutrophils # Man 12.2 H Lymphocytes # (Manual) 0.1 L D-Dimer ABG pH POC ABG pCO2 75.2 H POC ABG pO2 61.9 L ABG pO2 ABG HCO3 ABG O2 Saturation ABG Base Excess ABG Hemoglobin ABG Oxyhemoglobin 90.3 L ABG Sodium ABG Potassium ABG Chloride ABG Glucose 243 H Oxyhemoglobin Carboxyhemoglobin Sodium Potassium Chloride Carbon Dioxide BUN Creatinine Glucose POC Glucose 255 H Hemoglobin A1c Lactic Acid Calcium Ferritin Total Bilirubin AST ALT Alkaline Phosphatase Lactate Dehydrogenase C-Reactive Protein Total Protein Albumin Triglycerides Arterial Blood Glucose 243 H Arterial Blood Ionized Calcium Ur Specific Starr Vancomycin Trough Coronavirus (PCR) 11/26/20 11/26/20 11/26/20 16:20 17:15 23:41 WBC RBC Hgb Hct RDW Plt Count Lymph % (Auto) [place] % (Auto) Lymph # (Auto) [place] # (Auto) Baso # (Auto) Seg Neutrophils % Seg Neuts % (Manual) Lymphocytes % (Manual) Seg Neutrophils # Seg Neutrophils # Man Lymphocytes # (Manual) D-Dimer ABG pH POC ABG pCO2 66.6 H POC ABG pO2 78.1 L ABG pO2 ABG HCO3 ABG O2 Saturation ABG Base Excess ABG Hemoglobin ABG Oxyhemoglobin ABG Sodium ABG Potassium ABG Chloride ABG Glucose 244 H Oxyhemoglobin Carboxyhemoglobin Sodium Potassium Chloride Carbon Dioxide BUN Creatinine Glucose POC Glucose 219 H 210 H Hemoglobin A1c Lactic Acid Calcium Ferritin Total Bilirubin AST ALT Alkaline Phosphatase Lactate Dehydrogenase C-Reactive Protein Total Protein Albumin Triglycerides Arterial Blood Glucose 244 H Arterial Blood Ionized Calcium Ur Specific Starr Vancomycin Trough Coronavirus (PCR) 11/27/20 11/27/20 11/27/20 04:46 05:38 06:25 WBC 13.8 H RBC Hgb Hct RDW Plt Count Lymph % (Auto) 2.0 L [place] % (Auto) Lymph # (Auto) 0.3 L [place] # (Auto) Baso # (Auto) Seg Neutrophils % Seg Neuts % (Manual) 96.0 H Lymphocytes % (Manual) Seg Neutrophils # 12.7 H Seg Neutrophils # Man 13.2 H Lymphocytes # (Manual) 0.0 L D-Dimer ABG pH POC ABG pCO2 63.0 H POC ABG pO2 53.6 L ABG pO2 ABG HCO3 ABG O2 Saturation ABG Base Excess ABG Hemoglobin ABG Oxyhemoglobin 87.8 L ABG Sodium 115.4 L ABG Potassium ABG Chloride ABG Glucose 219 H Oxyhemoglobin Carboxyhemoglobin Sodium Potassium Chloride Carbon Dioxide BUN Creatinine Glucose POC Glucose 227 H Hemoglobin A1c Lactic Acid Calcium Ferritin Total Bilirubin AST ALT Alkaline Phosphatase Lactate Dehydrogenase C-Reactive Protein Total Protein Albumin Triglycerides Arterial Blood Glucose 219 H Arterial Blood Ionized Calcium Ur Specific Starr Vancomycin Trough Coronavirus (PCR) 11/27/20 11/27/20 11/27/20 06:25 18:05 23:29 WBC RBC Hgb Hct RDW Plt Count Lymph % (Auto) [place] % (Auto) Lymph # (Auto) [place] # (Auto) Baso # (Auto) Seg Neutrophils % Seg Neuts % (Manual) Lymphocytes % (Manual) Seg Neutrophils # Seg Neutrophils # Man Lymphocytes # (Manual) D-Dimer ABG pH POC ABG pCO2 POC ABG pO2 ABG pO2 ABG HCO3 ABG O2 Saturation ABG Base Excess ABG Hemoglobin ABG Oxyhemoglobin ABG Sodium ABG Potassium ABG Chloride ABG Glucose Oxyhemoglobin Carboxyhemoglobin Sodium Potassium Chloride Carbon Dioxide 38 H BUN 34 H Creatinine 0.4 L Glucose 243 H POC Glucose 329 H 227 H Hemoglobin A1c Lactic Acid Calcium 7.9 L Ferritin Total Bilirubin AST 50 H ALT 110 H Alkaline Phosphatase Lactate Dehydrogenase C-Reactive Protein Total Protein 6.1 L Albumin 2.4 L Triglycerides Arterial Blood Glucose Arterial Blood Ionized Calcium Ur Specific Starr Vancomycin Trough Coronavirus (PCR) 11/28/20 11/28/20 11/28/20 03:45 03:45 03:46 WBC 12.2 H RBC Hgb Hct RDW Plt Count Lymph % (Auto) [place] % (Auto) Lymph # (Auto) [place] # (Auto) Baso # (Auto) Seg Neutrophils % Seg Neuts % (Manual) 93.0 H Lymphocytes % (Manual) 2.0 L Seg Neutrophils # Seg Neutrophils # Man 11.3 H Lymphocytes # (Manual) 0.2 L D-Dimer ABG pH POC ABG pCO2 68.4 H POC ABG pO2 55.4 L ABG pO2 ABG HCO3 ABG O2 Saturation ABG Base Excess ABG Hemoglobin ABG Oxyhemoglobin ABG Sodium ABG Potassium ABG Chloride ABG Glucose 197 H Oxyhemoglobin Carboxyhemoglobin Sodium Potassium Chloride Carbon Dioxide 36 H BUN 37 H Creatinine 0.4 L Glucose 194 H POC Glucose Hemoglobin A1c Lactic Acid Calcium 8.1 L Ferritin Total Bilirubin AST ALT 86 H Alkaline Phosphatase Lactate Dehydrogenase C-Reactive Protein Total Protein 6.0 L Albumin 2.3 L Triglycerides Arterial Blood Glucose 197 H Arterial Blood Ionized Calcium Ur Specific Starr Vancomycin Trough Coronavirus (PCR) 11/28/20 11/28/20 11/29/20 05:24 12:21 04:41 WBC RBC Hgb Hct RDW Plt Count Lymph % (Auto) [place] % (Auto) Lymph # (Auto) [place] # (Auto) Baso # (Auto) Seg Neutrophils % Seg Neuts % (Manual) Lymphocytes % (Manual) Seg Neutrophils # Seg Neutrophils # Man Lymphocytes # (Manual) D-Dimer ABG pH POC ABG pCO2 55.1 H POC ABG pO2 53.6 L ABG pO2 ABG HCO3 ABG O2 Saturation ABG Base Excess ABG Hemoglobin ABG Oxyhemoglobin 87.1 L ABG Sodium 131.2 L ABG Potassium ABG Chloride ABG Glucose 164 H Oxyhemoglobin Carboxyhemoglobin Sodium Potassium Chloride Carbon Dioxide BUN Creatinine Glucose POC Glucose 173 H 126 H Hemoglobin A1c Lactic Acid Calcium Ferritin Total Bilirubin AST ALT Alkaline Phosphatase Lactate Dehydrogenase C-Reactive Protein Total Protein Albumin Triglycerides Arterial Blood Glucose 164 H Arterial Blood Ionized Calcium 4.4 L Ur Specific Starr Vancomycin Trough Coronavirus (PCR) 11/29/20 11/29/20 11/29/20 05:29 12:41 13:28 WBC RBC Hgb Hct RDW Plt Count Lymph % (Auto) [place] % (Auto) Lymph # (Auto) [place] # (Auto) Baso # (Auto) Seg Neutrophils % Seg Neuts % (Manual) Lymphocytes % (Manual) Seg Neutrophils # Seg Neutrophils # Man Lymphocytes # (Manual) D-Dimer ABG pH POC ABG pCO2 POC ABG pO2 ABG pO2 ABG HCO3 ABG O2 Saturation ABG Base Excess ABG Hemoglobin ABG Oxyhemoglobin ABG Sodium ABG Potassium ABG Chloride ABG Glucose Oxyhemoglobin Carboxyhemoglobin Sodium Potassium Chloride Carbon Dioxide 40 H BUN 32 H Creatinine 0.4 L Glucose 274 H POC Glucose 173 H 257 H Hemoglobin A1c Lactic Acid Calcium 7.2 L Ferritin Total Bilirubin AST 57 H ALT 102 H Alkaline Phosphatase Lactate Dehydrogenase C-Reactive Protein Total Protein 5.7 L Albumin 2.1 L Triglycerides Arterial Blood Glucose Arterial Blood Ionized Calcium Ur Specific Starr Vancomycin Trough Coronavirus (PCR) 11/29/20 11/29/20 11/29/20 15:40 17:36 21:26 WBC RBC Hgb Hct RDW Plt Count Lymph % (Auto) [place] % (Auto) Lymph # (Auto) [place] # (Auto) Baso # (Auto) Seg Neutrophils % Seg Neuts % (Manual) Lymphocytes % (Manual) Seg Neutrophils # Seg Neutrophils # Man Lymphocytes # (Manual) D-Dimer ABG pH POC ABG pCO2 POC ABG pO2 ABG pO2 ABG HCO3 ABG O2 Saturation ABG Base Excess ABG Hemoglobin ABG Oxyhemoglobin ABG Sodium ABG Potassium ABG Chloride ABG Glucose Oxyhemoglobin Carboxyhemoglobin Sodium Potassium Chloride Carbon Dioxide BUN Creatinine Glucose POC Glucose 240 H 244 H Hemoglobin A1c Lactic Acid Calcium Ferritin Total Bilirubin AST ALT Alkaline Phosphatase Lactate Dehydrogenase C-Reactive Protein Total Protein Albumin Triglycerides Arterial Blood Glucose Arterial Blood Ionized Calcium Ur Specific Starr Vancomycin Trough 4.0 L Coronavirus (PCR) 11/29/20 11/30/20 11/30/20 23:26 03:30 03:30 WBC RBC Hgb Hct RDW Plt Count Lymph % (Auto) [place] % (Auto) Lymph # (Auto) [place] # (Auto) Baso # (Auto) Seg Neutrophils % Seg Neuts % (Manual) 97.0 H Lymphocytes % (Manual) 1.0 L Seg Neutrophils # Seg Neutrophils # Man 9.9 H Lymphocytes # (Manual) 0.1 L D-Dimer ABG pH POC ABG pCO2 POC ABG pO2 ABG pO2 ABG HCO3 ABG O2 Saturation ABG Base Excess ABG Hemoglobin ABG Oxyhemoglobin ABG Sodium ABG Potassium ABG Chloride ABG Glucose Oxyhemoglobin Carboxyhemoglobin Sodium Potassium Chloride Carbon Dioxide 38 H BUN 34 H Creatinine 0.4 L Glucose 305 H POC Glucose 283 H Hemoglobin A1c Lactic Acid Calcium 7.6 L Ferritin Total Bilirubin AST ALT 89 H Alkaline Phosphatase Lactate Dehydrogenase C-Reactive Protein Total Protein 6.0 L Albumin 2.3 L Triglycerides Arterial Blood Glucose Arterial Blood Ionized Calcium Ur Specific Starr Vancomycin Trough Coronavirus (PCR) 11/30/20 11/30/20 11/30/20 03:57 05:22 12:05 WBC RBC Hgb Hct RDW Plt Count Lymph % (Auto) [place] % (Auto) Lymph # (Auto) [place] # (Auto) Baso # (Auto) Seg Neutrophils % Seg Neuts % (Manual) Lymphocytes % (Manual) Seg Neutrophils # Seg Neutrophils # Man Lymphocytes # (Manual) D-Dimer ABG pH POC ABG pCO2 60.8 H POC ABG pO2 51.1 L ABG pO2 ABG HCO3 ABG O2 Saturation ABG Base Excess ABG Hemoglobin ABG Oxyhemoglobin 84.6 L ABG Sodium ABG Potassium ABG Chloride ABG Glucose 315 H Oxyhemoglobin Carboxyhemoglobin Sodium Potassium Chloride Carbon Dioxide BUN Creatinine Glucose POC Glucose 295 H 413 H Hemoglobin A1c Lactic Acid Calcium Ferritin Total Bilirubin AST ALT Alkaline Phosphatase Lactate Dehydrogenase C-Reactive Protein Total Protein Albumin Triglycerides Arterial Blood Glucose 315 H Arterial Blood Ionized Calcium 4.5 L Ur Specific Starr Vancomycin Trough Coronavirus (PCR) 11/30/20 11/30/20 12/01/20 17:24 23:25 02:14 WBC RBC Hgb Hct RDW Plt Count Lymph % (Auto) [place] % (Auto) Lymph # (Auto) [place] # (Auto) Baso # (Auto) Seg Neutrophils % Seg Neuts % (Manual) Lymphocytes % (Manual) Seg Neutrophils # Seg Neutrophils # Man Lymphocytes # (Manual) D-Dimer ABG pH 7.278 L POC ABG pCO2 78.1 H POC ABG pO2 79.5 L ABG pO2 ABG HCO3 ABG O2 Saturation ABG Base Excess ABG Hemoglobin 11.6 L ABG Oxyhemoglobin ABG Sodium 134.5 L ABG Potassium 4.6 H ABG Chloride ABG Glucose 286 H Oxyhemoglobin Carboxyhemoglobin Sodium Potassium Chloride Carbon Dioxide BUN Creatinine Glucose POC Glucose 305 H 302 H Hemoglobin A1c Lactic Acid Calcium Ferritin Total Bilirubin AST ALT Alkaline Phosphatase Lactate Dehydrogenase C-Reactive Protein Total Protein Albumin Triglycerides Arterial Blood Glucose 286 H Arterial Blood Ionized Calcium Ur Specific Starr Vancomycin Trough Coronavirus (PCR) 12/01/20 12/01/20 12/01/20 03:35 03:35 05:22 WBC 13.4 H RBC 3.54 L Hgb 10.4 L Hct 31.8 L RDW Plt Count Lymph % (Auto) [place] % (Auto) Lymph # (Auto) [place] # (Auto) Baso # (Auto) Seg Neutrophils % Seg Neuts % (Manual) 95.0 H Lymphocytes % (Manual) 3.0 L Seg Neutrophils # Seg Neutrophils # Man 12.7 H Lymphocytes # (Manual) 0.4 L D-Dimer ABG pH POC ABG pCO2 POC ABG pO2 ABG pO2 ABG HCO3 ABG O2 Saturation ABG Base Excess ABG Hemoglobin ABG Oxyhemoglobin ABG Sodium ABG Potassium ABG Chloride ABG Glucose Oxyhemoglobin Carboxyhemoglobin Sodium Potassium Chloride Carbon Dioxide 35 H BUN 34 H Creatinine 0.5 L Glucose 279 H POC Glucose 259 H Hemoglobin A1c Lactic Acid Calcium 7.6 L Ferritin Total Bilirubin AST ALT 63 H Alkaline Phosphatase Lactate Dehydrogenase C-Reactive Protein Total Protein 4.8 L Albumin 2.1 L Triglycerides Arterial Blood Glucose Arterial Blood Ionized Calcium Ur Specific Starr Vancomycin Trough Coronavirus (PCR) 12/01/20 12/01/20 12/01/20 12:05 17:40 23:46 WBC RBC Hgb Hct RDW Plt Count Lymph % (Auto) [place] % (Auto) Lymph # (Auto) [place] # (Auto) Baso # (Auto) Seg Neutrophils % Seg Neuts % (Manual) Lymphocytes % (Manual) Seg Neutrophils # Seg Neutrophils # Man Lymphocytes # (Manual) D-Dimer ABG pH POC ABG pCO2 POC ABG pO2 ABG pO2 ABG HCO3 ABG O2 Saturation ABG Base Excess ABG Hemoglobin ABG Oxyhemoglobin ABG Sodium ABG Potassium ABG Chloride ABG Glucose Oxyhemoglobin Carboxyhemoglobin Sodium Potassium Chloride Carbon Dioxide BUN Creatinine Glucose POC Glucose 197 H 244 H 284 H Hemoglobin A1c Lactic Acid Calcium Ferritin Total Bilirubin AST ALT Alkaline Phosphatase Lactate Dehydrogenase C-Reactive Protein Total Protein Albumin Triglycerides Arterial Blood Glucose Arterial Blood Ionized Calcium Ur Specific Starr Vancomycin Trough Coronavirus (PCR) 12/02/20 12/02/20 12/02/20 02:14 03:03 04:11 WBC 16.5 H RBC 3.55 L Hgb 10.5 L Hct 31.9 L RDW Plt Count Lymph % (Auto) [place] % (Auto) Lymph # (Auto) [place] # (Auto) Baso # (Auto) Seg Neutrophils % Seg Neuts % (Manual) 90.0 H Lymphocytes % (Manual) 3.0 L Seg Neutrophils # Seg Neutrophils # Man 14.9 H Lymphocytes # (Manual) 0.5 L D-Dimer ABG pH POC ABG pCO2 74.8 H POC ABG pO2 58.9 L ABG pO2 ABG HCO3 ABG O2 Saturation ABG Base Excess ABG Hemoglobin 11.5 L ABG Oxyhemoglobin ABG Sodium ABG Potassium ABG Chloride ABG Glucose 264 H Oxyhemoglobin Carboxyhemoglobin Sodium Potassium Chloride Carbon Dioxide 37 H BUN 30 H Creatinine 0.4 L Glucose 245 H POC Glucose Hemoglobin A1c Lactic Acid Calcium 7.5 L Ferritin Total Bilirubin AST ALT Alkaline Phosphatase Lactate Dehydrogenase C-Reactive Protein Total Protein 5.2 L Albumin 2.2 L Triglycerides Arterial Blood Glucose 264 H Arterial Blood Ionized Calcium 4.5 L Ur Specific [facility] Vancomycin Trough Coronavirus (PCR) 12/02/20 12/02/20 12/02/20 05:19 11:46 17:52 WBC RBC Hgb Hct RDW Plt Count Lymph % (Auto) [place] % (Auto) Lymph # (Auto) [place] # (Auto) Baso # (Auto) Seg Neutrophils % Seg Neuts % (Manual) Lymphocytes % (Manual) Seg Neutrophils # Seg Neutrophils # Man Lymphocytes # (Manual) D-Dimer ABG pH POC ABG pCO2 POC ABG pO2 ABG pO2 ABG HCO3 ABG O2 Saturation ABG Base Excess ABG Hemoglobin ABG Oxyhemoglobin ABG Sodium ABG Potassium ABG Chloride ABG Glucose Oxyhemoglobin Carboxyhemoglobin Sodium Potassium Chloride Carbon Dioxide BUN Creatinine Glucose POC Glucose 238 H 236 H 233 H Hemoglobin A1c Lactic Acid Calcium Ferritin Total Bilirubin AST ALT Alkaline Phosphatase Lactate Dehydrogenase C-Reactive Protein Total Protein Albumin Triglycerides Arterial Blood Glucose Arterial Blood Ionized Calcium Ur Specific [facility] Vancomycin Trough Coronavirus (PCR) 12/02/20 12/03/20 12/03/20 23:23 03:21 04:35 WBC RBC Hgb Hct RDW Plt Count 112 L Lymph % (Auto) [place] % (Auto) Lymph # (Auto) [place] # (Auto) Baso # (Auto) Seg Neutrophils % Seg Neuts % (Manual) 93.0 H Lymphocytes % (Manual) 4.0 L Seg Neutrophils # Seg Neutrophils # Man 9.1 H Lymphocytes # (Manual) 0.4 L D-Dimer ABG pH 7.299 L POC ABG pCO2 82.1 H POC ABG pO2 62.4 L ABG pO2 ABG HCO3 ABG O2 Saturation ABG Base Excess ABG Hemoglobin 11.5 L ABG Oxyhemoglobin 89.6 L ABG Sodium 134.3 L ABG Potassium ABG Chloride 95.0 L ABG Glucose 203 H Oxyhemoglobin Carboxyhemoglobin Sodium Potassium Chloride Carbon Dioxide BUN Creatinine Glucose POC Glucose 213 H Hemoglobin A1c Lactic Acid Calcium Ferritin Total Bilirubin AST ALT Alkaline Phosphatase Lactate Dehydrogenase C-Reactive Protein Total Protein Albumin Triglycerides Arterial Blood Glucose 203 H Arterial Blood Ionized Calcium 4.5 L Ur Specific [facility] Vancomycin Trough Coronavirus (PCR) 12/03/20 12/03/20 12/03/20 04:35 05:42 11:28 WBC RBC Hgb Hct RDW Plt Count Lymph % (Auto) [place] % (Auto) Lymph # (Auto) [place] # (Auto) Baso # (Auto) Seg Neutrophils % Seg Neuts % (Manual) Lymphocytes % (Manual) Seg Neutrophils # Seg Neutrophils # Man Lymphocytes # (Manual) D-Dimer ABG pH POC ABG pCO2 POC ABG pO2 ABG pO2 ABG HCO3 ABG O2 Saturation ABG Base Excess ABG Hemoglobin ABG Oxyhemoglobin ABG Sodium ABG Potassium ABG Chloride ABG Glucose Oxyhemoglobin Carboxyhemoglobin Sodium Potassium Chloride 97.8 L Carbon Dioxide 43 H* BUN 25 H Creatinine 0.3 L Glucose 214 H POC Glucose 193 H 211 H Hemoglobin A1c Lactic Acid Calcium 7.7 L Ferritin Total Bilirubin AST ALT 63 H Alkaline Phosphatase 132 H Lactate Dehydrogenase C-Reactive Protein Total Protein 5.1 L Albumin 2.4 L Triglycerides Arterial Blood Glucose Arterial Blood Ionized Calcium Ur Specific [facility] Vancomycin Trough Coronavirus (PCR) 12/03/20 12/03/20 12/04/20 17:45 23:57 00:11 WBC RBC Hgb Hct RDW Plt Count Lymph % (Auto) [place] % (Auto) Lymph # (Auto) [place] # (Auto) Baso # (Auto) Seg Neutrophils % Seg Neuts % (Manual) Lymphocytes % (Manual) Seg Neutrophils # Seg Neutrophils # Man Lymphocytes # (Manual) D-Dimer ABG pH POC ABG pCO2 POC ABG pO2 ABG pO2 ABG HCO3 ABG O2 Saturation ABG Base Excess ABG Hemoglobin ABG Oxyhemoglobin ABG Sodium ABG Potassium ABG Chloride ABG Glucose Oxyhemoglobin Carboxyhemoglobin Sodium Potassium Chloride Carbon Dioxide BUN Creatinine Glucose POC Glucose 231 H 240 H 239 H Hemoglobin A1c Lactic Acid Calcium Ferritin Total Bilirubin AST ALT Alkaline Phosphatase Lactate Dehydrogenase C-Reactive Protein Total Protein Albumin Triglycerides Arterial Blood Glucose Arterial Blood Ionized Calcium Ur Specific [facility] Vancomycin Trough Coronavirus (PCR) 12/04/20 12/04/20 12/04/20 04:00 05:20 05:34 WBC RBC Hgb Hct RDW Plt Count Lymph % (Auto) [place] % (Auto) Lymph # (Auto) [place] # (Auto) Baso # (Auto) Seg Neutrophils % Seg Neuts % (Manual) Lymphocytes % (Manual) Seg Neutrophils # Seg Neutrophils # Man Lymphocytes # (Manual) D-Dimer ABG pH POC ABG pCO2 84.4 H POC ABG pO2 68.0 L ABG pO2 ABG HCO3 ABG O2 Saturation ABG Base Excess ABG Hemoglobin 11.6 L ABG Oxyhemoglobin ABG Sodium 130.9 L ABG Potassium ABG Chloride 90.0 L ABG Glucose 244 H Oxyhemoglobin Carboxyhemoglobin Sodium Potassium Chloride Carbon Dioxide BUN Creatinine Glucose POC Glucose 241 H 213 H Hemoglobin A1c Lactic Acid Calcium Ferritin Total Bilirubin AST ALT Alkaline Phosphatase Lactate Dehydrogenase C-Reactive Protein Total Protein Albumin Triglycerides Arterial Blood Glucose 244 H Arterial Blood Ionized Calcium 4.4 L Ur Specific [facility] Vancomycin Trough Coronavirus (PCR) 12/04/20 12/04/20 12/04/20 11:36 16:53 23:32 WBC RBC Hgb Hct RDW Plt Count Lymph % (Auto) [place] % (Auto) Lymph # (Auto) [place] # (Auto) Baso # (Auto) Seg Neutrophils % Seg Neuts % (Manual) Lymphocytes % (Manual) Seg Neutrophils # Seg Neutrophils # Man Lymphocytes # (Manual) D-Dimer ABG pH POC ABG pCO2 POC ABG pO2 ABG pO2 ABG HCO3 ABG O2 Saturation ABG Base Excess ABG Hemoglobin ABG Oxyhemoglobin ABG Sodium ABG Potassium ABG Chloride ABG Glucose Oxyhemoglobin Carboxyhemoglobin Sodium Potassium Chloride Carbon Dioxide BUN Creatinine Glucose POC Glucose 196 H 127 H 230 H Hemoglobin A1c Lactic Acid Calcium Ferritin Total Bilirubin AST ALT Alkaline Phosphatase Lactate Dehydrogenase C-Reactive Protein Total Protein Albumin Triglycerides Arterial Blood Glucose Arterial Blood Ionized Calcium Ur Specific [facility] Vancomycin Trough Coronavirus (PCR) 12/04/20 12/05/20 12/05/20 Unknown 04:16 05:21 WBC RBC Hgb Hct RDW Plt Count Lymph % (Auto) [place] % (Auto) Lymph # (Auto) [place] # (Auto) Baso # (Auto) Seg Neutrophils % Seg Neuts % (Manual) Lymphocytes % (Manual) Seg Neutrophils # Seg Neutrophils # Man Lymphocytes # (Manual) D-Dimer ABG pH POC ABG pCO2 86.7 H POC ABG pO2 58.0 L ABG pO2 ABG HCO3 ABG O2 Saturation ABG Base Excess ABG Hemoglobin 11.6 L ABG Oxyhemoglobin 89 L ABG Sodium 130.1 L ABG Potassium 4.9 H ABG Chloride 89.0 L ABG Glucose 254 H Oxyhemoglobin Carboxyhemoglobin Sodium 136 L Potassium Chloride 90.0 L Carbon Dioxide 46 H* BUN 24 H Creatinine 0.3 L Glucose 226 H POC Glucose 213 H Hemoglobin A1c Lactic Acid Calcium 7.6 L Ferritin Total Bilirubin AST 46 H ALT 78 H Alkaline Phosphatase 172 H Lactate Dehydrogenase C-Reactive Protein Total Protein 6.0 L Albumin 2.8 L Triglycerides 156 H Arterial Blood Glucose 254 H Arterial Blood Ionized Calcium 4.4 L Ur Specific [facility] Vancom[facility] Trough Coronavirus (PCR) 12/05/20 12/05/20 12/05/20 11:22 17:26 23:38 WBC RBC Hgb Hct RDW Plt Count Lymph % (Auto) [place] % (Auto) Lymph # (Auto) [place] # (Auto) Baso # (Auto) Seg Neutrophils % Seg Neuts % (Manual) Lymphocytes % (Manual) Seg Neutrophils # Seg Neutrophils # Man Lymphocytes # (Manual) D-Dimer ABG pH POC ABG pCO2 POC ABG pO2 ABG pO2 ABG HCO3 ABG O2 Saturation ABG Base Excess ABG Hemoglobin ABG Oxyhemoglobin ABG Sodium ABG Potassium ABG Chloride ABG Glucose Oxyhemoglobin Carboxyhemoglobin Sodium Potassium Chloride Carbon Dioxide BUN Creatinine Glucose POC Glucose 212 H 157 H 204 H Hemoglobin A1c Lactic Acid Calcium Ferritin Total Bilirubin AST ALT Alkaline Phosphatase Lactate Dehydrogenase C-Reactive Protein Total Protein Albumin Triglycerides Arterial Blood Glucose Arterial Blood Ionized Calcium Ur Specific [facility] Vancomycin Trough Coronavirus (PCR) 12/06/20 12/06/20 12/06/20 04:31 04:31 05:12 WBC 17.0 H RBC 3.63 L Hgb 10.8 L D Hct 32.6 L D RDW Plt Count Lymph % (Auto) [place] % (Auto) Lymph # (Auto) [place] # (Auto) Baso # (Auto) Seg Neutrophils % Seg Neuts % (Manual) Lymphocytes % (Manual) Seg Neutrophils # Seg Neutrophils # Man Lymphocytes # (Manual) D-Dimer ABG pH POC ABG pCO2 85.9 H POC ABG pO2 57.6 L ABG pO2 ABG HCO3 ABG O2 Saturation ABG Base Excess ABG Hemoglobin ABG Oxyhemoglobin ABG Sodium 131.2 L ABG Potassium 4.8 H ABG Chloride 86.0 L ABG Glucose 200 H Oxyhemoglobin Carboxyhemoglobin Sodium 134 L Potassium 5.1 H Chloride 88.4 L Carbon Dioxide 47 H* BUN 23 H Creatinine 0.3 L Glucose 206 H POC Glucose Hemoglobin A1c Lactic Acid Calcium 8.3 L Ferritin Total Bilirubin AST 48 H ALT 91 H Alkaline Phosphatase 140 H Lactate Dehydrogenase C-Reactive Protein Total Protein 5.7 L Albumin 2.6 L Triglycerides Arterial Blood Glucose 200 H Arterial Blood Ionized Calcium 4.4 L Ur Specific [facility] Vancom[facility] Trough Coronavirus (PCR) 12/06/20 12/06/20 12/06/20 05:24 12:18 16:45 WBC RBC Hgb Hct RDW Plt Count Lymph % (Auto) [place] % (Auto) Lymph # (Auto) [place] # (Auto) Baso # (Auto) Seg Neutrophils % Seg Neuts % (Manual) Lymphocytes % (Manual) Seg Neutrophils # Seg Neutrophils # Man Lymphocytes # (Manual) D-Dimer ABG pH POC ABG pCO2 POC ABG pO2 ABG pO2 ABG HCO3 ABG O2 Saturation ABG Base Excess ABG Hemoglobin ABG Oxyhemoglobin ABG Sodium ABG Potassium ABG Chloride ABG Glucose Oxyhemoglobin Carboxyhemoglobin Sodium Potassium Chloride Carbon Dioxide BUN Creatinine Glucose POC Glucose 186 H 187 H 150 H Hemoglobin A1c Lactic Acid Calcium Ferritin Total Bilirubin AST ALT Alkaline Phosphatase Lactate Dehydrogenase C-Reactive Protein Total Protein Albumin Triglycerides Arterial Blood Glucose Arterial Blood Ionized Calcium Ur Specific [facility] Vancomycin Trough Coronavirus (PCR) 12/06/20 12/07/20 12/07/20 23:43 05:20 05:21 WBC RBC Hgb Hct RDW Plt Count Lymph % (Auto) [place] % (Auto) Lymph # (Auto) [place] # (Auto) Baso # (Auto) Seg Neutrophils % Seg Neuts % (Manual) Lymphocytes % (Manual) Seg Neutrophils # Seg Neutrophils # Man Lymphocytes # (Manual) D-Dimer ABG pH POC ABG pCO2 POC ABG pO2 ABG pO2 48.4 L ABG HCO3 50.8 H ABG O2 Saturation 86.2 L ABG Base Excess 22.4 H ABG Hemoglobin 11.0 L ABG Oxyhemoglobin ABG Sodium ABG Potassium ABG Chloride ABG Glucose Oxyhemoglobin 84.0 L Carboxyhemoglobin Sodium Potassium Chloride Carbon Dioxide BUN Creatinine Glucose POC Glucose 153 H 107 H Hemoglobin A1c Lactic Acid Calcium Ferritin Total Bilirubin AST ALT Alkaline Phosphatase Lactate Dehydrogenase C-Reactive Protein Total Protein Albumin Triglycerides Arterial Blood Glucose Arterial Blood Ionized Calcium Ur Specific [facility] Vancomycin Trough Coronavirus (PCR) 12/07/20 12/07/20 12/07/20 13:20 14:28 17:35 WBC RBC Hgb Hct RDW Plt Count Lymph % (Auto) [place] % (Auto) Lymph # (Auto) [place] # (Auto) Baso # (Auto) Seg Neutrophils % Seg Neuts % (Manual) Lymphocytes % (Manual) Seg Neutrophils # Seg Neutrophils # Man Lymphocytes # (Manual) D-Dimer ABG pH POC ABG pCO2 74.1 H POC ABG pO2 68.5 L ABG pO2 ABG HCO3 ABG O2 Saturation ABG Base Excess ABG Hemoglobin 10.7 L ABG Oxyhemoglobin 91.9 L ABG Sodium 132.2 L ABG Potassium 4.7 H ABG Chloride 88.0 L ABG Glucose 138 H Oxyhemoglobin Carboxyhemoglobin Sodium 134 L Potassium Chloride 87.4 L Carbon Dioxide 49 H* BUN Creatinine 0.2 L Glucose 132 H POC Glucose 176 H Hemoglobin A1c Lactic Acid Calcium 7.7 L Ferritin Total Bilirubin AST ALT Alkaline Phosphatase Lactate Dehydrogenase C-Reactive Protein Total Protein Albumin Triglycerides Arterial Blood Glucose 138 H Arterial Blood Ionized Calcium 4.0 L Ur Specific [facility] Vancomycin Trough Coronavirus (PCR) 12/07/20 12/08/20 12/08/20 23:44 04:12 05:29 WBC RBC Hgb Hct RDW Plt Count Lymph % (Auto) [place] % (Auto) Lymph # (Auto) [place] # (Auto) Baso # (Auto) Seg Neutrophils % Seg Neuts % (Manual) Lymphocytes % (Manual) Seg Neutrophils # Seg Neutrophils # Man Lymphocytes # (Manual) D-Dimer ABG pH POC ABG pCO2 POC ABG pO2 ABG pO2 69.7 L ABG HCO3 50.1 H ABG O2 Saturation ABG Base Excess 21.6 H ABG Hemoglobin 10.9 L ABG Oxyhemoglobin ABG Sodium ABG Potassium ABG Chloride ABG Glucose Oxyhemoglobin 93.2 L Carboxyhemoglobin Sodium Potassium Chloride Carbon Dioxide BUN Creatinine Glucose POC Glucose 143 H 143 H Hemoglobin A1c Lactic Acid Calcium Ferritin Total Bilirubin AST ALT Alkaline Phosphatase Lactate Dehydrogenase C-Reactive Protein Total Protein Albumin Triglycerides Arterial Blood Glucose Arterial Blood Ionized Calcium Ur Specific [facility] Vancomycin Trough Coronavirus (PCR) 12/08/20 12/08/20 12/09/20 06:10 06:10 04:24 WBC 12.0 H RBC 3.18 L Hgb 9.5 L Hct 28.9 L RDW Plt Count Lymph % (Auto) [place] % (Auto) Lymph # (Auto) [place] # (Auto) Baso # (Auto) Seg Neutrophils % Seg Neuts % (Manual) 95.0 H Lymphocytes % (Manual) 3.0 L Seg Neutrophils # Seg Neutrophils # Man 11.4 H Lymphocytes # (Manual) 0.4 L D-Dimer ABG pH POC ABG pCO2 76.2 H POC ABG pO2 52.8 L ABG pO2 ABG HCO3 ABG O2 Saturation ABG Base Excess ABG Hemoglobin 11.7 L ABG Oxyhemoglobin ABG Sodium 132.0 L ABG Potassium ABG Chloride 87.0 L ABG Glucose 118 H Oxyhemoglobin Carboxyhemoglobin Sodium 133 L Potassium Chloride 86.3 L Carbon Dioxide 53 H* BUN Creatinine 0.2 L Glucose 156 H POC Glucose Hemoglobin A1c Lactic Acid Calcium 7.6 L Ferritin Total Bilirubin AST ALT Alkaline Phosphatase Lactate Dehydrogenase C-Reactive Protein Total Protein Albumin Triglycerides Arterial Blood Glucose 118 H Arterial Blood Ionized Calcium 4.2 L Ur Specific [facility] Vancomycin Trough Coronavirus (PCR) 12/09/20 12/09/20 12/09/20 05:44 06:40 06:40 WBC 13.5 H RBC 3.28 L Hgb 9.7 L Hct 29.9 L RDW Plt Count Lymph % (Auto) [place] % (Auto) Lymph # (Auto) [place] # (Auto) Baso # (Auto) Seg Neutrophils % Seg Neuts % (Manual) Lymphocytes % (Manual) Seg Neutrophils # Seg Neutrophils # Man Lymphocytes # (Manual) D-Dimer ABG pH POC ABG pCO2 POC ABG pO2 ABG pO2 ABG HCO3 ABG O2 Saturation ABG Base Excess ABG Hemoglobin ABG Oxyhemoglobin ABG Sodium ABG Potassium ABG Chloride ABG Glucose Oxyhemoglobin Carboxyhemoglobin Sodium 135 L Potassium Chloride 89.5 L Carbon Dioxide 52 H* BUN Creatinine 0.3 L Glucose 114 H POC Glucose 117 H Hemoglobin A1c Lactic Acid Calcium 7.6 L Ferritin Total Bilirubin AST ALT Alkaline Phosphatase Lactate Dehydrogenase C-Reactive Protein Total Protein Albumin Triglycerides Arterial Blood Glucose Arterial Blood Ionized Calcium Ur Specific [facility] Vancomycin Trough Coronavirus (PCR) 12/09/20 12/09/20 12/10/20 16:42 21:11 04:28 WBC RBC Hgb Hct RDW Plt Count Lymph % (Auto) [place] % (Auto) Lymph # (Auto) [place] # (Auto) Baso # (Auto) Seg Neutrophils % Seg Neuts % (Manual) Lymphocytes % (Manual) Seg Neutrophils # Seg Neutrophils # Man Lymphocytes # (Manual) D-Dimer ABG pH POC ABG pCO2 72.5 H 69.4 H 76.9 H POC ABG pO2 50.4 L 80.6 L 60.2 L ABG pO2 ABG HCO3 ABG O2 Saturation ABG Base Excess ABG Hemoglobin 10.4 L 10.7 L 10 L ABG Oxyhemoglobin 84.3 L 89.7 L ABG Sodium 133.7 L 133.7 L 133.8 L ABG Potassium ABG Chloride 90.0 L 91.0 L 91.0 L ABG Glucose 116 H 96 H 57 L Oxyhemoglobin Carboxyhemoglobin 0.4 L Sodium Potassium Chloride Carbon Dioxide BUN Creatinine Glucose POC Glucose Hemoglobin A1c Lactic Acid Calcium Ferritin Total Bilirubin AST ALT Alkaline Phosphatase Lactate Dehydrogenase C-Reactive Protein Total Protein Albumin Triglycerides Arterial Blood Glucose 116 H 96 H 57 L Arterial Blood Ionized Calcium 4.2 L 4.3 L 4.2 L Ur Specific [facility] Vancomycin Trough Coronavirus (PCR) 12/10/20 12/10/20 12/10/20 05:09 05:41 11:50 WBC RBC Hgb Hct RDW Plt Count Lymph % (Auto) [place] % (Auto) Lymph # (Auto) [place] # (Auto) Baso # (Auto) Seg Neutrophils % Seg Neuts % (Manual) Lymphocytes % (Manual) Seg Neutrophils # Seg Neutrophils # Man Lymphocytes # (Manual) D-Dimer ABG pH POC ABG pCO2 POC ABG pO2 ABG pO2 ABG HCO3 ABG O2 Saturation ABG Base Excess ABG Hemoglobin ABG Oxyhemoglobin ABG Sodium ABG Potassium ABG Chloride ABG Glucose Oxyhemoglobin Carboxyhemoglobin Sodium Potassium Chloride Carbon Dioxide BUN Creatinine Glucose POC Glucose 41 L 138 H 106 H Hemoglobin A1c Lactic Acid Calcium Ferritin Total Bilirubin AST ALT Alkaline Phosphatase Lactate Dehydrogenase C-Reactive Protein Total Protein Albumin Triglycerides Arterial Blood Glucose Arterial Blood Ionized Calcium Ur Specific [facility] Vancomycin Trough Coronavirus (PCR) 12/10/20 12/10/20 12/11/20 17:34 23:25 04:06 WBC RBC Hgb Hct RDW Plt Count Lymph % (Auto) [place] % (Auto) Lymph # (Auto) [place] # (Auto) Baso # (Auto) Seg Neutrophils % Seg Neuts % (Manual) Lymphocytes % (Manual) Seg Neutrophils # Seg Neutrophils # Man Lymphocytes # (Manual) D-Dimer ABG pH POC ABG pCO2 71.0 H POC ABG pO2 56.8 L ABG pO2 ABG HCO3 ABG O2 Saturation ABG Base Excess ABG Hemoglobin 10.1 L ABG Oxyhemoglobin 88.5 L ABG Sodium 132.3 L ABG Potassium ABG Chloride 91.0 L ABG Glucose 168 H Oxyhemoglobin Carboxyhemoglobin Sodium Potassium Chloride Carbon Dioxide BUN Creatinine Glucose POC Glucose 121 H 167 H Hemoglobin A1c Lactic Acid Calcium Ferritin Total Bilirubin AST ALT Alkaline Phosphatase Lactate Dehydrogenase C-Reactive Protein Total Protein Albumin Triglycerides Arterial Blood Glucose 168 H Arterial Blood Ionized Calcium 4.1 L Ur Specific [facility] Vancomycin Trough Coronavirus (PCR) 12/11/20 12/11/20 12/11/20 05:21 11:44 15:40 WBC RBC Hgb Hct RDW Plt Count Lymph % (Auto) [place] % (Auto) Lymph # (Auto) [place] # (Auto) Baso # (Auto) Seg Neutrophils % Seg Neuts % (Manual) Lymphocytes % (Manual) Seg Neutrophils # Seg Neutrophils # Man Lymphocytes # (Manual) D-Dimer ABG pH 7.454 H POC ABG pCO2 58.6 H POC ABG pO2 50.7 L ABG pO2 ABG HCO3 ABG O2 Saturation ABG Base Excess ABG Hemoglobin 10.1 L ABG Oxyhemoglobin 86.2 L ABG Sodium 131.2 L ABG Potassium ABG Chloride 92.0 L ABG Glucose 197 H Oxyhemoglobin Carboxyhemoglobin Sodium Potassium Chloride Carbon Dioxide BUN Creatinine Glucose POC Glucose 149 H 202 H Hemoglobin A1c Lactic Acid Calcium Ferritin Total Bilirubin AST ALT Alkaline Phosphatase Lactate Dehydrogenase C-Reactive Protein Total Protein Albumin Triglycerides Arterial Blood Glucose 197 H Arterial Blood Ionized Calcium 4.2 L Ur Specific [facility] Vancomycin Trough Coronavirus (PCR) 12/11/20 12/11/20 12/12/20 17:09 23:16 05:09 WBC RBC Hgb Hct RDW Plt Count Lymph % (Auto) [place] % (Auto) Lymph # (Auto) [place] # (Auto) Baso # (Auto) Seg Neutrophils % Seg Neuts % (Manual) Lymphocytes % (Manual) Seg Neutrophils # Seg Neutrophils # Man Lymphocytes # (Manual) D-Dimer ABG pH POC ABG pCO2 63.1 H POC ABG pO2 62.6 L ABG pO2 ABG HCO3 ABG O2 Saturation ABG Base Excess ABG Hemoglobin 10.3 L ABG Oxyhemoglobin ABG Sodium 130.3 L ABG Potassium 4.6 H ABG Chloride 92.0 L ABG Glucose 215 H Oxyhemoglobin Carboxyhemoglobin Sodium Potassium Chloride Carbon Dioxide BUN Creatinine Glucose POC Glucose 181 H 192 H Hemoglobin A1c Lactic Acid Calcium Ferritin Total Bilirubin AST ALT Alkaline Phosphatase Lactate Dehydrogenase C-Reactive Protein Total Protein Albumin Triglycerides Arterial Blood Glucose 215 H Arterial Blood Ionized Calcium 4.4 L Ur Specific [facility] Vancomycin Trough Coronavirus (PCR) 12/12/20 12/12/20 12/12/20 05:16 05:47 11:41 WBC RBC Hgb Hct RDW Plt Count Lymph % (Auto) [place] % (Auto) Lymph # (Auto) [place] # (Auto) Baso # (Auto) Seg Neutrophils % Seg Neuts % (Manual) Lymphocytes % (Manual) Seg Neutrophils # Seg Neutrophils # Man Lymphocytes # (Manual) D-Dimer ABG pH POC ABG pCO2 POC ABG pO2 ABG pO2 ABG HCO3 ABG O2 Saturation ABG Base Excess ABG Hemoglobin ABG Oxyhemoglobin ABG Sodium ABG Potassium ABG Chloride ABG Glucose Oxyhemoglobin Carboxyhemoglobin Sodium Potassium Chloride Carbon Dioxide BUN Creatinine Glucose POC Glucose 208 H 218 H Hemoglobin A1c Lactic Acid Calcium Ferritin Total Bilirubin AST ALT Alkaline Phosphatase Lactate Dehydrogenase C-Reactive Protein Total Protein Albumin Triglycerides 150 H Arterial Blood Glucose Arterial Blood Ionized Calcium Ur Specific [facility] Vancomycin Trough Coronavirus (PCR) 12/12/20 12/12/20 12/13/20 17:05 23:18 03:36 WBC RBC Hgb Hct RDW Plt Count Lymph % (Auto) [place] % (Auto) Lymph # (Auto) [place] # (Auto) Baso # (Auto) Seg Neutrophils % Seg Neuts % (Manual) Lymphocytes % (Manual) Seg Neutrophils # Seg Neutrophils # Man Lymphocytes # (Manual) D-Dimer ABG pH POC ABG pCO2 61.5 H POC ABG pO2 77.6 L ABG pO2 ABG HCO3 ABG O2 Saturation ABG Base Excess ABG Hemoglobin 10.2 L ABG Oxyhemoglobin ABG Sodium 127.5 L ABG Potassium ABG Chloride 91.0 L ABG Glucose 232 H Oxyhemoglobin Carboxyhemoglobin Sodium Potassium Chloride Carbon Dioxide BUN Creatinine Glucose POC Glucose 187 H 176 H Hemoglobin A1c Lactic Acid Calcium Ferritin Total Bilirubin AST ALT Alkaline Phosphatase Lactate Dehydrogenase C-Reactive Protein Total Protein Albumin Triglycerides Arterial Blood Glucose 232 H Arterial Blood Ionized Calcium 4.2 L Ur Specific [facility] Vancomycin Trough Coronavirus (PCR) 12/13/20 12/13/20 12/13/20 05:13 10:00 11:30 WBC RBC 3.50 L Hgb 10.5 L Hct 31.9 L RDW Plt Count Lymph % (Auto) [place] % (Auto) Lymph # (Auto) [place] # (Auto) Baso # (Auto) Seg Neutrophils % Seg Neuts % (Manual) 96.0 H Lymphocytes % (Manual) Seg Neutrophils # Seg Neutrophils # Man 9.2 H Lymphocytes # (Manual) 0.0 L D-Dimer ABG pH POC ABG pCO2 POC ABG pO2 ABG pO2 ABG HCO3 ABG O2 Saturation ABG Base Excess ABG Hemoglobin ABG Oxyhemoglobin ABG Sodium ABG Potassium ABG Chloride ABG Glucose Oxyhemoglobin Carboxyhemoglobin Sodium Potassium Chloride Carbon Dioxide BUN Creatinine Glucose POC Glucose 204 H Hemoglobin A1c Lactic Acid Calcium Ferritin Total Bilirubin AST ALT Alkaline Phosphatase Lactate Dehydrogenase C-Reactive Protein Total Protein Albumin Triglycerides Arterial Blood Glucose Arterial Blood Ionized Calcium Ur Specific [facility] Vancomycin Trough Coronavirus (PCR) Positive A 12/13/20 12/13/20 12/13/20 11:30 12:01 18:04 WBC RBC Hgb Hct RDW Plt Count Lymph % (Auto) [place] % (Auto) Lymph # (Auto) [place] # (Auto) Baso # (Auto) Seg Neutrophils % Seg Neuts % (Manual) Lymphocytes % (Manual) Seg Neutrophils # Seg Neutrophils # Man Lymphocytes # (Manual) D-Dimer ABG pH POC ABG pCO2 POC ABG pO2 ABG pO2 ABG HCO3 ABG O2 Saturation ABG Base Excess ABG Hemoglobin ABG Oxyhemoglobin ABG Sodium ABG Potassium ABG Chloride ABG Glucose Oxyhemoglobin Carboxyhemoglobin Sodium 132 L Potassium Chloride 90.1 L Carbon Dioxide 41 H* D BUN Creatinine 0.2 L Glucose 249 H POC Glucose 224 H 172 H Hemoglobin A1c Lactic Acid Calcium 7.4 L Ferritin Total Bilirubin AST ALT 61 H Alkaline Phosphatase Lactate Dehydrogenase C-Reactive Protein Total Protein 5.7 L Albumin 2.3 L Triglycerides Arterial Blood Glucose Arterial Blood Ionized Calcium Ur Specific [facility] Vancomycin Trough Coronavirus (PCR) 12/13/20 12/14/20 12/14/20 23:37 04:05 04:35 WBC RBC 3.37 L Hgb 10.1 L Hct 30.7 L RDW 15.4 H Plt Count Lymph % (Auto) [place] % (Auto) Lymph # (Auto) [place] # (Auto) Baso # (Auto) Seg Neutrophils % Seg Neuts % (Manual) 93.0 H Lymphocytes % (Manual) 3.0 L Seg Neutrophils # Seg Neutrophils # Man 7.8 H Lymphocytes # (Manual) 0.3 L D-Dimer ABG pH POC ABG pCO2 72.2 H POC ABG pO2 61.5 L ABG pO2 ABG HCO3 ABG O2 Saturation ABG Base Excess ABG Hemoglobin ABG Oxyhemoglobin 89.9 L ABG Sodium 131.4 L ABG Potassium ABG Chloride 91.0 L ABG Glucose 205 H Oxyhemoglobin Carboxyhemoglobin Sodium Potassium Chloride Carbon Dioxide BUN Creatinine Glucose POC Glucose 200 H Hemoglobin A1c Lactic Acid Calcium Ferritin Total Bilirubin AST ALT Alkaline Phosphatase Lactate Dehydrogenase C-Reactive Protein Total Protein Albumin Triglycerides Arterial Blood Glucose 205 H Arterial Blood Ionized Calcium 4.3 L Ur Specific [facility] Vancomycin Trough Coronavirus (PCR) 12/14/20 12/14/20 12/14/20 04:35 05:12 11:31 WBC RBC Hgb Hct RDW Plt Count Lymph % (Auto) [place] % (Auto) Lymph # (Auto) [place] # (Auto) Baso # (Auto) Seg Neutrophils % Seg Neuts % (Manual) Lymphocytes % (Manual) Seg Neutrophils # Seg Neutrophils # Man Lymphocytes # (Manual) D-Dimer ABG pH POC ABG pCO2 POC ABG pO2 ABG pO2 ABG HCO3 ABG O2 Saturation ABG Base Excess ABG Hemoglobin ABG Oxyhemoglobin ABG Sodium ABG Potassium ABG Chloride ABG Glucose Oxyhemoglobin Carboxyhemoglobin Sodium 135 L Potassium Chloride 92.5 L Carbon Dioxide 38 H BUN Creatinine 0.2 L Glucose 184 H POC Glucose 176 H 212 H Hemoglobin A1c Lactic Acid Calcium 7.7 L Ferritin Total Bilirubin AST ALT Alkaline Phosphatase Lactate Dehydrogenase C-Reactive Protein Total Protein Albumin Triglycerides Arterial Blood Glucose Arterial Blood Ionized Calcium Ur Specific [facility] Vancomycin Trough Coronavirus (PCR) 12/14/20 12/14/20 12/15/20 17:30 23:30 03:19 WBC RBC Hgb Hct RDW Plt Count Lymph % (Auto) [place] % (Auto) Lymph # (Auto) [place] # (Auto) Baso # (Auto) Seg Neutrophils % Seg Neuts % (Manual) Lymphocytes % (Manual) Seg Neutrophils # Seg Neutrophils # Man Lymphocytes # (Manual) D-Dimer ABG pH POC ABG pCO2 62.0 H POC ABG pO2 66.0 L ABG pO2 ABG HCO3 ABG O2 Saturation ABG Base Excess ABG Hemoglobin 10.3 L ABG Oxyhemoglobin ABG Sodium 130.5 L ABG Potassium ABG Chloride 91.0 L ABG Glucose 166 H Oxyhemoglobin Carboxyhemoglobin Sodium Potassium Chloride Carbon Dioxide BUN Creatinine Glucose POC Glucose 222 H 176 H Hemoglobin A1c Lactic Acid Calcium Ferritin Total Bilirubin AST ALT Alkaline Phosphatase Lactate Dehydrogenase C-Reactive Protein Total Protein Albumin Triglycerides Arterial Blood Glucose 166 H Arterial Blood Ionized Calcium 4.4 L Ur Specific Starr Vancomycin Trough Coronavirus (PCR) 12/15/20 12/15/20 12/15/20 05:24 11:39 17:30 WBC RBC Hgb Hct RDW Plt Count Lymph % (Auto) [place] % (Auto) Lymph # (Auto) [place] # (Auto) Baso # (Auto) Seg Neutrophils % Seg Neuts % (Manual) Lymphocytes % (Manual) Seg Neutrophils # Seg Neutrophils # Man Lymphocytes # (Manual) D-Dimer ABG pH POC ABG pCO2 POC ABG pO2 ABG pO2 ABG HCO3 ABG O2 Saturation ABG Base Excess ABG Hemoglobin ABG Oxyhemoglobin ABG Sodium ABG Potassium ABG Chloride ABG Glucose Oxyhemoglobin Carboxyhemoglobin Sodium Potassium Chloride Carbon Dioxide BUN Creatinine Glucose POC Glucose 160 H 140 H 246 H Hemoglobin A1c Lactic Acid Calcium Ferritin Total Bilirubin AST ALT Alkaline Phosphatase Lactate Dehydrogenase C-Reactive Protein Total Protein Albumin Triglycerides Arterial Blood Glucose Arterial Blood Ionized Calcium Ur Specific Starr Vancomycin Trough Coronavirus (PCR) 12/15/20 12/16/20 12/16/20 23:42 03:54 04:46 WBC RBC 3.48 L Hgb 10.6 L Hct 31.5 L RDW 15.8 H Plt Count Lymph % (Auto) [place] % (Auto) Lymph # (Auto) [place] # (Auto) Baso # (Auto) Seg Neutrophils % Seg Neuts % (Manual) Lymphocytes % (Manual) Seg Neutrophils # Seg Neutrophils # Man Lymphocytes # (Manual) D-Dimer ABG pH POC ABG pCO2 63.6 H POC ABG pO2 55.0 L ABG pO2 ABG HCO3 ABG O2 Saturation ABG Base Excess ABG Hemoglobin 11.1 L ABG Oxyhemoglobin 87.3 L ABG Sodium 130.7 L ABG Potassium ABG Chloride 89.0 L ABG Glucose 211 H Oxyhemoglobin Carboxyhemoglobin Sodium Potassium Chloride Carbon Dioxide BUN Creatinine Glucose POC Glucose 139 H Hemoglobin A1c Lactic Acid Calcium Ferritin Total Bilirubin AST ALT Alkaline Phosphatase Lactate Dehydrogenase C-Reactive Protein Total Protein Albumin Triglycerides Arterial Blood Glucose 211 H Arterial Blood Ionized Calcium 4.3 L Ur Specific Starr Vancomycin Trough Coronavirus (PCR) 12/16/20 12/16/20 12/16/20 04:46 05:34 11:40 WBC RBC Hgb Hct RDW Plt Count Lymph % (Auto) [place] % (Auto) Lymph # (Auto) [place] # (Auto) Baso # (Auto) Seg Neutrophils % Seg Neuts % (Manual) Lymphocytes % (Manual) Seg Neutrophils # Seg Neutrophils # Man Lymphocytes # (Manual) D-Dimer ABG pH POC ABG pCO2 POC ABG pO2 ABG pO2 ABG HCO3 ABG O2 Saturation ABG Base Excess ABG Hemoglobin ABG Oxyhemoglobin ABG Sodium ABG Potassium ABG Chloride ABG Glucose Oxyhemoglobin Carboxyhemoglobin Sodium 134 L Potassium Chloride 89.7 L Carbon Dioxide 38 H BUN Creatinine < 0.2 L Glucose 203 H POC Glucose 155 H 239 H Hemoglobin A1c Lactic Acid Calcium 7.5 L Ferritin Total Bilirubin AST ALT Alkaline Phosphatase Lactate Dehydrogenase C-Reactive Protein Total Protein Albumin Triglycerides Arterial Blood Glucose Arterial Blood Ionized Calcium Ur Specific Starr Vancomycin Trough Coronavirus (PCR) 12/16/20 12/16/20 12/17/20 17:42 23:45 03:59 WBC RBC Hgb Hct RDW Plt Count Lymph % (Auto) [place] % (Auto) Lymph # (Auto) [place] # (Auto) Baso # (Auto) Seg Neutrophils % Seg Neuts % (Manual) Lymphocytes % (Manual) Seg Neutrophils # Seg Neutrophils # Man Lymphocytes # (Manual) D-Dimer ABG pH POC ABG pCO2 71.9 H POC ABG pO2 57.5 L ABG pO2 ABG HCO3 ABG O2 Saturation ABG Base Excess ABG Hemoglobin 10.8 L ABG Oxyhemoglobin 87.7 L ABG Sodium 131.5 L ABG Potassium ABG Chloride 90.0 L ABG Glucose 199 H Oxyhemoglobin Carboxyhemoglobin Sodium Potassium Chloride Carbon Dioxide BUN Creatinine Glucose POC Glucose 228 H 187 H Hemoglobin A1c Lactic Acid Calcium Ferritin Total Bilirubin AST ALT Alkaline Phosphatase Lactate Dehydrogenase C-Reactive Protein Total Protein Albumin Triglycerides Arterial Blood Glucose 199 H Arterial Blood Ionized Calcium 4.4 L Ur Specific Starr Vancomycin Trough Coronavirus (PCR) 12/17/20 05:35 WBC RBC Hgb Hct RDW Plt Count Lymph % (Auto) [place] % (Auto) Lymph # (Auto) [place] # (Auto) Baso # (Auto) Seg Neutrophils % Seg Neuts % (Manual) Lymphocytes % (Manual) Seg Neutrophils # Seg Neutrophils # Man Lymphocytes # (Manual) D-Dimer ABG pH POC ABG pCO2 POC ABG pO2 ABG pO2 ABG HCO3 ABG O2 Saturation ABG Base Excess ABG Hemoglobin ABG Oxyhemoglobin ABG Sodium ABG Potassium ABG Chloride ABG Glucose Oxyhemoglobin Carboxyhemoglobin Sodium Potassium Chloride Carbon Dioxide BUN Creatinine Glucose POC Glucose 159 H Hemoglobin A1c Lactic Acid Calcium Ferritin Total Bilirubin AST ALT Alkaline Phosphatase Lactate Dehydrogenase C-Reactive Protein Total Protein Albumin Triglycerides Arterial Blood Glucose Arterial Blood Ionized Calcium Ur Specific Starr Vancomycin Trough Coronavirus (PCR)
[2020-12-17] MEDS: SENNOSIDES/DOCUSATE SODIUM 8.6/50 MG TAB PO SCH ×2 (09:59→22:25)
[2020-12-17] MEDS: FAMOTIDINE 20 MG TAB PO SCH ×2 (09:59→22:20)
[2020-12-17] MEDS: methylPREDNISolone Sod Succinate 40 MG/1 ML INJ IV SCH (09:59)
--- NOTE | 2020-12-17 11:23 | XRay Report ---
CHEST 1 VIEW 12/17/2020 10:14 AM INDICATION / CLINICAL INFORMATION: Fever, bilateral chest tubes, covid positive. COMPARISON: 12/14/2020 FINDINGS: SUPPORT DEVICES: ET tube and NG tube are satisfactory position. Right chest tube and left chest tube are unchanged. HEART / MEDIASTINUM: No significant abnormality. LUNGS / PLEURA: Diffuse bilateral pulmonary opacities have increased since prior examination. No pneu mothorax. ADDITIONAL FINDINGS: No significant additional findings. IMPRESSION: Bilateral pulmonary opacities have increased since prior exam. Signer Name: Trevor Clinton MD Signed: 12/17/2020 11:19 AM Workstation Name: [id number]
--- NOTE | 2020-12-17 12:26 | Progress Note ---
<GAMALIELLISSETH KemRigo - Last Filed: 12/17/20 12:22> History Interval history: 59-year-old female who is smoker who presented to [facility] with shortness of breath cough fever weakness for 1 to 2 days prior to arrival. Per EMS the patient was severely hypoxic with saturations in the low 80s. With all oxygen and nonrebreather came down to low 90s. ID, pulmonary, CCM were consulted. Septic Shock COVID-19 pneumonia Acute hypoxic hypercapnic respiratory failure Bilateral pneumothorax Pneumomediastinum with subcutaneous emphysema Elevated D-dimer Transaminitis Klebsiella pneumonia Type 2 diabetes mellitus 2/: Patient continues on BiPAP throughout the night. Labs are remarkable for hypoxia with improving renal function but lactic acidosis without fever. CTA has been ordered to rule out pulmonary embolism. I agree with increasing enoxaparin to twice daily full dose for empiric treatment of pulmonary embolism. Will obtain ID consultation on further evaluation for possible underlying pneumonia versus COVID-19. We will also obtain echocardiogram for evaluation. Will discontinue fluids at this time. 2/2; Continue supportive care, Patient remains with very guarded prognosis, remains on BiPAP, continues on Remdesivir, and steroids. Will continue anticoagulation, unable to get CTA Chest due to patients unstable clinical status. Will adjust insulin for better blood glucose 2/3: Continues on BIPAP, no clear improvement at this time. Will continue steroids therapy Remdesivir and also Full anticoagulation at this time. Will update family. Discussed with Grinder Set Up Operator. 2/4: Taking a break from the BiPAP on high flow and nonrebreather 100% with saturation of 90% becomes hypoxic with any movement. Grinder Set Up Operator input noted will get a dose of Lasix today. Will await a discussion with ID for possibly in creasing steroid. I updated Patient's Cousin, Tayla Esquivel who is the emergency field contact technician. Blood sugar remains fluctuating secondary to steriods, Encouraged Prone positioning. Noted with mild hyponatremia we will continue to monitor and manage 2/5: Continue supportive care wean oxygen as tolerated prognosis remains guarde d. Encouraged to progress as tolerated. Awaiting labs today. Discussed with nursing staff and patient at bedside. 2/6: Discontinued Dexamethasone as Solumedrol started secondary to increased oxygen demand. Will give additional insulin for better control. Continue oxygen support patient still on high flow. Prognosis still guarded 11/22: Patient was intubated and placed on mechanical ventilation. Continue current medication. Will check a.m. labs today. Noted still with hypotension. Doubt septic shock at this time as patient has no new fever. Will adjust insulin for better blood sugar control. 11/23: Patient admitted with COVID-19 despite all efforts patient remains severely hypoxic and now is intubated. Grinder Set Up Operator input noted. Blood pressure marginal at this time. Very poor prognosis. Continue Solu-Medrol. 11/24. Patient remains very hypoxic. Blood pressure borderline. Plan for initiation of paralytic agents as per cotton ball machine tender. Patient may need to be transferred if no improvement. 11/26. Off paralytics. Remains intubated. On steroids. Prognosis is poor. 11/27. Chest xray shows pneumomediastinum and subcutaneous emphysema. Surgery consulted. Plan for chest tube placement. Sputum culture grew MRSA. Patient started on vancomycin per ID. 11/28. Right chest tube placed yesterday by surgery. Repeat chest x-ray showed left small pneumothorax. Plan for chest tube placement on the left today. Remains on paralytic agents. 11/29. Remains intubated on vent. Had left chest tube placed yesterday. Vitals reviewed. Critical care following 11/30/ Remains on mechanical ventilation. Worsening hypoxia. Bilateral chest tubes in place. Vitals reviewed. Labs reviewed 12/01: Chest tube and mechanical ventilation remains in place, poor prognosis, FIO2 remains at 90%, adjust insulin for better blood glucose control 12/02: Patient remains on full ventilatory support and steroids, still with worsening leukocytosis ?inflammatory or infectious vs steroids. Continue vanc omycin. 12/03; slowly weaning, 12/04: Still on the vent FiO2 down to 65% PEEP remains at 18. Still with poor prognosis. 12/05: Patient continues on full ventilatory support per cotton ball machine tender PEEP remains at 18. Still with hypercapnic respiratory failure. FiO2 down to 60% this morning. Chest tube to suction still weaning off steroids in the deliberation ongoing for possible a third chest tube as last documentation by surgery shows no plan for it at this time. Continue to manage insulin for better blood sugar control. 12/06:weaned down to 60%, continue supportive care, unable to wean, 12/07; patient remains intubated on ventilatory support, chest tubes in place trach and PEG when patient's Covid test is negative,Per surgery. 12/08; Patient remains intubated remains with hypercapnia and hypoxia. Chest tube still remain in place. He is off antibiotics at this time. Continue ster oids which is likely resultant to the leukocytosis. Grinder Set Up Operator and surgeon following ID input is noted. Prognosis remains guarded to poor 12/10; patient remains intubated on vent, unable to wean awaiting trach and PEG when Covid test is negative, Continue current management 12/11; patient awaiting trach and PEG when Covid test is negative, vent dependent, poor prognosis 12/12; clinically no change, vent dependent, Patient is critically ill with very poor prognosis, awaiting trach and PEG when COVID-19 test turns negative. Plan discussed with nursing staff. Caregivers have discussed with patient's family periodically 12/13: Patient is critically ill with very poor prognosis, awaiting trach and PEG when COVID-19 test turns negative. Plan discussed with nursing staff. Caregivers have discussed with patient's family periodically 12/14: Increase UOP which we will monitor and replete as needed. Patient remain hypoxemic on ABG despite 100 FiO2, remains on fentanyl, precedex, versed and levo gtt. 12/15: Patient remains sedated on fentanyl at 3 mcg, Versed at 30 mg, dexamethasone 0.3 and was on Levophed 6 mcg this morning. Patient's vent settings rate of 30, tidal volume 425, PEEP of 18, FiO2 of 85. RT attempted to wean as tolerated. No acute events reported overnight. Bilateral chest tubes to wall suction. 12/16: Overnight the patient was noted to be bradycardic, Precedex drip was increased to 0.6/fentanyl to 4 mcg/Versed 5 mg, bilateral chest tube to suction. Current vent settings for 425/30/18/0.75, RT to wean as tolerated 12/17: Patient's T-max overnight was 101.2, obtain CXR today, per [facility] if patient respikes we will obtain blood and urine culture. Patient remains on fentanyl, Versed, Precedex and Levophed. Current vent settings AC 425/30/18/0.75, RT to wean as tolerated. Continue steroid taper. Hospitalist Physical - Constitutional Vitals: Temp Pulse Resp BP Pulse Ox 99.4 F 96 H 30 H 110/61 97 12/17/20 12:08 12/17/20 12:02 12/17/20 09:45 12/17/20 12:02 12/17/20 12:02 General appearance: Present: no acute distress, well-nourished, other (Vent dependent) - EENT Eyes: Present: EOM intact - Neck Neck: Present: normal ROM - Respiratory Respiratory effort: normal Respiratory: bilateral: diminished, rhonchi - Cardiovascular Rhythm: regular Heart Sounds: Present: S1 & S2. Absent: systolic murmur, diastolic murmur - Extremities Extremities: no ischemia, pulses intact, pulses symmetrical, No edema, normal temperature, normal color Peripheral Pulses: within normal limits - Abdominal General gastrointestinal: soft, non-tender, non-distended, normal bowel sounds - Integumentary Integumentary: Present: clear, warm, dry - Psychiatric Psychiatric: other (sedated) - Neurologic Neurologic: other (sedated) - Allied Health Allied health notes reviewed: nursing, RT HEART Score - HEART Score Troponin: Troponin T < 0.010 ng/mL (0.00-0.029) 12/11/20 06:30 Results - Labs CBC & Chem 7: 12/16/20 04:46 12/16/20 04:46 Labs: Laboratory Last Values WBC 9.7 K/mm3 (4.5-11.0) 12/16/20 04:46 RBC 3.48 M/mm3 (3.65-5.03) L 12/16/20 04:46 Hgb 10.6 gm/dl (11.8-15.2) L 12/16/20 04:46 Hct 31.5 % (35.5-45.6) L 12/16/20 04:46 MCV 90 fl (84-94) 12/16/20 04:46 MCH 30 pg (28-32) 12/16/20 04:46 MCHC 34 % (32-34) 12/16/20 04:46 RDW 15.8 % (13.2-15.2) H 12/16/20 04:46 Plt Count 317 K/mm3 (140-440) 12/16/20 04:46 Lymph % (Auto) 2.0 % (13.4-35.0) L 11/27/20 06:25 [place] % (Auto) 5.2 % (0.0-7.3) 11/27/20 06:25 Eos % (Auto) 0.0 % (0.0-4.3) 11/27/20 06:25 Baso % (Auto) 0.1 % (0.0-1.8) 11/27/20 06:25 Lymph # (Auto) 0.3 K/mm3 (1.2-5.4) L 11/27/20 06:25 [place] # (Auto) 0.7 K/mm3 (0.0-0.8) 11/27/20 06:25 Eos # (Auto) 0.0 K/mm3 (0.0-0.4) 11/27/20 06:25 Baso # (Auto) 0.0 K/mm3 (0.0-0.1) 11/27/20 06:25 Add Manual Diff Complete 12/14/20 04:35 Total Counted 100 12/14/20 04:35 Seg Neutrophils % Policy Intern 12/14/20 04:35 Seg Neuts % (Manual) 93.0 % (40.0-70.0) H 12/14/20 04:35 Band Neutrophils % 2.0 % 12/13/20 11:30 Lymphocytes % (Manual) 3.0 % (13.4-35.0) L 12/14/20 04:35 Monocytes % (Manual) 4.0 % (0.0-7.3) 12/14/20 04:35 Nucleated RBC % Not Reportable 12/14/20 04:35 Seg Neutrophils # 12.7 K/mm3 (1.8-7.7) H 11/27/20 06:25 Seg Neutrophils # Man 7.8 K/mm3 (1.8-7.7) H 12/14/20 04:35 Band Neutrophils # 0.0 K/mm3 12/14/20 04:35 Lymphocytes # (Manual) 0.3 K/mm3 (1.2-5.4) L 12/14/20 04:35 Abs React Lymphs (Man) 0.0 K/mm3 12/14/20 04:35 Monocytes # (Manual) 0.3 K/mm3 (0.0-0.8) 12/14/20 04:35 Eosinophils # (Manual) 0.0 K/mm3 (0.0-0.4) 12/14/20 04:35 Basophils # (Manual) 0.0 K/mm3 (0.0-0.1) 12/14/20 04:35 Metamyelocytes # 0.0 K/mm3 12/14/20 04:35 Myelocytes # 0.0 K/mm3 12/14/20 04:35 Promyelocytes # 0.0 K/mm3 12/14/20 04:35 Blast Cells # 0.0 K/mm3 12/14/20 04:35 WBC Morphology Not Reportable 12/14/20 04:35 Hypersegmented Neuts Not Reportable 12/14/20 04:35 Hyposegmented Neuts Not Reportable 12/14/20 04:35 Hypogranular Neuts Not Reportable 12/14/20 04:35 Smudge Cells Not Reportable 12/14/20 04:35 Toxic Granulation Not Reportable 12/14/20 04:35 Toxic Vacuolation Not Reportable 12/14/20 04:35 Dohle Bodies Not Reportable 12/14/20 04:35 Pelger-Huet Anomaly Not Reportable 12/14/20 04:35 Tony Rods Not Reportable 12/14/20 04:35 Platelet Estimate Consistent w auto 12/14/20 04:35 Clumped Platelets Not Reportable 12/14/20 04:35 Plt Clumps, EDTA Not Reportable 12/14/20 04:35 Large Platelets Not Reportable 12/14/20 04:35 Giant Platelets Not Reportable 12/14/20 04:35 Platelet Satelliting Not Reportable 12/14/20 04:35 Plt Morphology Comment Not Reportable 12/14/20 04:35 RBC Morphology Not Reportable 12/14/20 04:35 Dimorphic RBCs Not Reportable 12/14/20 04:35 Polychromasia Not Reportable 12/14/20 04:35 Hypochromasia Few 12/14/20 04:35 Poikilocytosis Not Reportable 12/14/20 04:35 Anisocytosis Few 12/14/20 04:35 Microcytosis Not Reportable 12/14/20 04:35 Macrocytosis Not Reportable 12/14/20 04:35 Spherocytes Not Reportable 12/14/20 04:35 Pappenheimer Bodies Not Reportable 12/14/20 04:35 Sickle Cells Not Reportable 12/14/20 04:35 Target Cells Not Reportable 12/14/20 04:35 Tear Drop Cells Not Reportable 12/14/20 04:35 Ovalocytes Not Reportable 12/14/20 04:35 Stomatocytes 1+ 12/03/20 04:35 Helmet Cells Not Reportable 12/14/20 04:[address] [place] Bodies Not Reportable 12/14/20 04:35 [place] Rings Not Reportable 12/14/20 04:35 [place] Cells Not Reportable 12/14/20 04:35 Bite Cells Not Reportable 12/14/20 04:35 Crenated Cell Not Reportable 12/14/20 04:35 Elliptocytes Not Reportable 12/14/20 04:35 Acanthocytes (Spur) Not Reportable 12/14/20 04:35 Rouleaux Not Reportable 12/14/20 04:35 Hemoglobin C Crystals Not Reportable 12/14/20 04:35 Schistocytes Not Reportable 12/14/20 04:35 Malaria parasites Not Reportable 12/14/20 04:35 Yovani Bodies Not Reportable 12/14/20 04:35 Hem Pathologist Commnt No 12/14/20 04:35 D-Dimer 926.11 ng/mlDDU (0-234) H 11/26/20 06:04 ABG pH 7.375 (7.320-7.450) 12/17/20 03:59 POC ABG pCO2 71.9 mmHg (32.0-48.0) H 12/17/20 03:59 ABG pCO2 81.3 mm Hg 12/08/20 04:12 POC ABG pO2 57.5 mmHg (83-108) L 12/17/20 03:59 ABG pO2 69.7 mm Hg (80.0-90.0) L 12/08/20 04:12 POC ABG HCO3 41.1 12/17/20 03:59 ABG HCO3 50.1 mmol/L (20.0-26.0) H 12/08/20 04:12 ABG O2 Saturation 95.4 % (95.0-99.0) 12/08/20 04:12 ABG O2 Content 13.0 (0.0-44) 12/07/20 05:20 POC ABG Base Excess 13.3 12/17/20 03:59 ABG Base Excess 21.6 mmol/L (-2.0-3.0) H 12/08/20 04:12 ABG Hemoglobin 10.8 (12.0-17.5) L 12/17/20 03:59 ABG Oxyhemoglobin 87.7 (94-98) L 12/17/20 03:59 ABG Carboxyhemoglobin 2.0 % (0.0-5.0) 12/08/20 04:12 ABG Methemoglobin 0.3 (0.0-1.5) 12/17/20 03:59 ABG Sodium 131.5 mmol/L (136.0-145.0) L 12/17/20 03:59 ABG Potassium 4.3 mmol/L (3.40-4.50) 12/17/20 03:59 ABG Chloride 90.0 mmol/L (98-107) L 12/17/20 03:59 ABG Glucose 199 mg/dL (65-95) H 12/17/20 03:59 Oxyhemoglobin 93.2 % (95.0-99.0) L 12/08/20 04:12 Carboxyhemoglobin 1.2 (0.5-1.5) 12/17/20 03:59 FiO2 75 12/17/20 03:59 Sodium 134 mmol/L (137-145) L 12/16/20 04:46 Potassium 4.3 mmol/L (3.6-5.0) 12/16/20 04:46 Chloride 89.7 mmol/L (98-107) L 12/16/20 04:46 Carbon Dioxide 38 mmol/L (22-30) H 12/16/20 04:46 Anion Gap 11 mmol/L 12/16/20 04:46 BUN 9 mg/dL (9-20) 12/16/20 04:46 Creatinine < 0.2 mg/dL (0.8-1.3) L 12/16/20 04:46 Estimated GFR > 60 ml/min 12/16/20 04:46 BUN/Creatinine Ratio 45 % 12/16/20 04:46 Glucose 203 mg/dL (75-100) H 12/16/20 04:46 POC Glucose 181 mg/dL (70-105) H 12/17/20 11:55 Hemoglobin A1c 11.7 % (4-6) H 11/16/20 05:29 Lactic Acid 2.60 mmol/L (0.7-2.0) H* 11/16/20 05:29 Calcium 7.5 mg/dL (8.4-10.2) L 12/16/20 04:46 Phosphorus 2.90 mg/dL (2.5-4.5) 12/04/20 Unknown Magnesium 1.80 mg/dL (1.7-2.3) 12/14/20 04:35 Ferritin 778.8 ng/mL (30.0-300.0) H 11/26/20 04:00 Total Bilirubin 0.50 mg/dL (0.1-1.2) 12/13/20 11:30 AST 34 units/L (5-40) 12/13/20 11:30 ALT 61 units/L (7-56) H 12/13/20 11:30 Alkaline Phosphatase 117 units/L (35-129) 12/13/20 11:30 Lactate Dehydrogenase 288 units/L (91-180) H 11/26/20 04:00 Troponin T < 0.010 ng/mL (0.00-0.029) 12/11/20 06:30 C-Reactive Protein 1.40 mg/dL (0.00-1.30) H 11/26/20 04:00 NT-Pro-B Natriuret Pep 107.2 pg/mL (0-900) 11/17/20 10:21 Total Protein 5.7 g/dL (6.3-8.2) L 12/13/20 11:30 Albumin 2.3 g/dL (3.9-5) L 12/13/20 11:30 Albumin/Globulin Ratio 0.7 % 12/13/20 11:30 Triglycerides 150 mg/dL (2-149) H 12/12/20 05:16 Procalcitonin 0.16 ng/mL (<0.15) 12/12/20 05:16 Arterial Blood Glucose 199 mg/dL (65-95) H 12/17/20 03:59 Arterial Blood Ionized Calcium 4.4 mg/dL (4.6-5.3) L 12/17/20 03:59 Urine Color Faustina (Yellow) 11/16/20 01:45 Urine Turbidity Slightly-cloudy (Clear) 11/16/20 01:45 Urine pH 6.0 (5.0-7.0) 11/16/20 01:45 Ur Specific [place] 1.037 (1.003-1.030) H 11/16/20 01:45 Urine Protein 30 mg/dl mg/dL (Negative) 11/16/20 01:45 Urine Glucose (UA) >=500 mg/dL (Negative) 11/16/20 01:45 Urine Ketones 20 mg/dL (Negative) 11/16/20 01:45 Urine Blood Neg (Negative) 11/16/20 01:45 Urine Nitrite Neg (Negative) 11/16/20 01:45 Urine Bilirubin Neg (Negative) 11/16/20 01:45 Urine Urobilinogen 2.0 mg/dL (<2.0) 11/16/20 01:45 Ur Leukocyte Esterase Neg (Negative) 11/16/20 01:45 Urine WBC (Auto) 2.0 /HPF (0.0-6.0) 11/16/20 01:45 Urine RBC (Auto) 1.0 /HPF (0.0-6.0) 11/16/20 01:45 Urine Bacteria (Auto) 1+ /HPF (Negative) 11/16/20 01:45 Urine Mucus 3+ /HPF 11/16/20 01:45 Vancomycin Trough 4.0 ug/mL (5.0-20.0) L 11/29/20 15:40 Coronavirus (PCR) Positive (Negative) A 12/13/20 10:00 - Diagnostic Impressions Diagnostic Impressions: Echocardiogram 11/16/20 10:34 Transthoracic Echocardiogram Indication: Shortness of breath-COVID BP: 108/77 HR: 92 Conclusions *Global left ventricular systolic function is normal. *The estimated ejection fraction is 60-65%. *Mild to moderate concentric left ventricular hypertrophy is observed. *There is trace of mitral regurgitation. *There is mild to moderate tricuspid regurgitation. *There is evidence of mild pulmonary hypertension. *The right ventricular systolic pressure is calculated at 31 mmHg. Findings Left Ventricle: The left ventricular chamber size is normal. Mild to moderate concentric left ventricular hypertrophy is observed. Global left ventricular systolic function is normal. The estimated ejection fraction is 60-65%. Left Atrium: The left atrial chamber size is normal. Right Ventricle: The right ventricular cavity size is normal. The right ventricular global systolic function is normal. Right Atrium: The right atrial cavity size is normal. Aortic Valve: The aortic valve is trileaflet. There is no evidence of aortic regurgitation. There is no evidence of aortic stenosis. Mitral Valve: The mitral valve leaflets appear normal. There is trace of mitral regurgitation. There is no evidence of mitral stenosis. Tricuspid Valve: The tricuspid valve leaflets are normal. There is mild to moderate tricuspid regurgitation. The right ventricular systolic pressure is calculated at 31 mmHg. There is evidence of mild pulmonary hypertension. Pulmonic Valve: There is trace pulmonic regurgitation. Pericardium: There is no pericardial effusion. Aorta: There is no dilatation of the ascending aorta. There is no dilatation of the aortic root. Venous: The inferior vena cava appears normal in size. Measurements Chambers 2D Name Value Normal Range IVSd (2D) 0.81 cm (0.6 - 1.1) LVPWd (2D) 0.79 cm (0.6 - 1.1) LVIDd (2D) 4.22 cm (3.7 - 5.6) LVIDs (2D) 3.1 cm (2 - 3.8) LV FS (2D) 26.71 % - EF Teichholz (2D) 52.55 % - Ao root diameter (2D) 3.34 cm (2 - 3.7) Volumes/Mass Name Value Normal Range LA ESV SP 4CH (A/L) 10.87 ml - LA ESV SP 2CH (A/L) 18.74 ml - LA ESV BP (A/L) 16.38 ml - LA ESV BP (A/L) index 8.62 ml/m2 - LA ESV SP 4CH (MOD) 10.32 ml - LA ESV SP 2CH (MOD) 17.66 ml - LA ESV BP (MOD) 15.12 ml - LA ESV BP (MOD) index 7.96 ml/m2 - Diastolic/Systolic Function Name Value Normal Range MV E-wave Vmax 0.76 m/sec - MV deceleration time 133.63 msec - MV A-wave Vmax 1.1 m/sec - MV E:A ratio 0.69 ratio - Aortic Valve Name Value Normal Range AV Vmax 1.44 m/sec - AV VTI 22.94 cm - AV peak gradient 8.33 mmHg - AV mean gradient 4.73 mmHg - LVOT diameter 2.2 cm - LVOT Vmax 1.04 m/sec - LVOT VTI 18.88 cm - LVOT peak gradient 4.34 mmHg - LVOT mean gradient 2.31 mmHg - SV LVOT 72.05 ml - EVANGELISTA (continuity Vmax) 2.75 cm2 - EVANGELISTA (continuity VTI) 3.14 cm2 - Tricuspid Valve Name Value Normal Range TR Vmax 2.64 m/sec - TR peak gradient 28 mmHg - RAP 3 mmHg - RVSP 31 mmHg - Gupta/IV: Voiding Method Indwelling Catheter IV Catheter Type [Left Peripheral IV Antecubital] Active Medications - Current Medications Current Medications: Generic Name Dose Route Start Last Admin Trade Name Freq PRN Reason Stop Dose Admin Acetaminophen 650 mg 11/15/20 23:55 12/16/20 11:55 Acetaminophen 325 Mg Tab PO 650 mg Q4H PRN Administration Pain MILD(1-3)/Fever >100.5/BUTTS Lipase/Protease/Amylase 1 each 11/23/20 11:53 12/05/20 23:45 Lipase 10,500/Protease 25,000/Amylase 43,750 (Units) Dr Cap FEEDTUBE 1 each PRN PRN Administration For Clogged Feeding Tube Dextrose 25 ml 12/10/20 05:21 12/10/20 05:24 Dextrose 50% In Water (25gm) 50 Ml Syringe IV 25 ml Q30MIN PRN Administration Hypoglycemia Protocol Enoxaparin Sodium 40 mg 12/03/20 22:00 12/16/20 21:26 Enoxaparin 40 Mg/0.4 Ml Inj SUB-Q 40 mg QDAY@2200 AREANN Administration Famotidine 20 mg 12/16/20 10:00 12/17/20 09:59 Famotidine 20 Mg Tab PO 20 mg BID RAEANN Administration Fentanyl 50 mcg 11/21/20 21:53 12/14/20 15:04 Fentanyl 100 Mcg/2 Ml Inj IV 50 mcg Q10MIN PRN Administration ANALGESIA Hydrophilic Ointment 1 applic 11/21/20 21:53 11/30/20 21:33 Lip Therapy Vaseline TP 1 applic Q2HR PRN Administration Dry Lips Fentanyl Citrate 2,000 mcg in 100 mls @ 3.625 mls/hr 11/21/20 22:00 12/17/20 11:30 Fentanyl Drip Premix IV 8 mcg/kg/hr TITR RAEANN 29 mls/hr Administration Protocol 1 MCG/KG/HR Midazolam HCl 100 mg/ Sodium 100 mls @ 2 mls/hr 11/21/20 22:00 12/17/20 09:00 Chloride IV 4 mg/hr TITR RAEANN 4 mls/hr Titration Protocol 2 MG/HR Norepinephrine 4 mg in 250 mls @ 7.5 mls/hr 11/22/20 17:00 12/17/20 09:00 Levophed Drip 4 Mg/Ns 250 Ml IV 4 mcg/min TITR RAEANN 15 mls/hr Titration Protocol 2 MCG/MIN Propofol 1,000 mg in 100 mls @ 2.175 mls/hr 11/27/20 12:00 12/11/20 17:55 Diprivan 10 Mg/Ml IV 0 mcg/kg/min TITR RAEANN 0 mls/hr Titration Protocol 5 MCG/KG/MIN Dexmedetomidine HCl 400 mcg/ 104 mls @ 4.441 mls/hr 12/10/20 13:00 12/17/20 07:59 Sodium Chloride IV 0.5 mcg/kg/hr TITRATE RAEANN 11.102 mls/hr Titration Protocol 0.2 MCG/KG/HR Insulin Glargine 5 units 12/14/20 22:00 12/16/20 21:29 Insulin Glargine 100 Units/Ml SUB-Q 5 units QHS [facility] Administration Insulin Human Lispro 0 unit 11/22/20 06:00 12/17/20 12:01 Insulin Lispro 100 Unit/Ml SUB-Q 3 unit Q6HR [facility] Administration Protocol Methylprednisolone Sodium Succinate 20 mg 12/15/20 10:00 12/17/20 09:59 Methylprednisolone Sod Succinate 40 Mg/1 Ml Inj IV 12/18/20 10:01 20 mg Q24HR RAEANN Administration Metoclopramide HCl 10 mg 11/15/20 23:55 Metoclopramide 10 Mg/2 Ml Inj IV Q6H PRN Nausea And Vomiting Multi-Ingred Cream/Lotion/Oil/Oint 1 applic 11/21/20 21:53 Mineral Oil/Petrolatum, White Ophth Oint 3.5 Gm OU Q4HR PRN Dry Eye(s) Ondansetron HCl 4 mg 11/15/20 23:55 Ondansetron 4 Mg/2 Ml Inj IV Q8H PRN Nausea And Vomiting Prednisone 10 mg 12/19/20 10:00 Prednisone 10 Mg Tab PO 12/22/20 10:01 QDAY RAEANN Senna/Docusate Sodium 2 tab 12/03/20 13:00 12/17/20 09:59 Sennosides/Docusate Sodium 8.6/50 Mg Tab PO 2 tab BID RAEANN Administration Simple Syrup 15 ml 11/23/20 11:53 Simple Syrup 15 Ml FEEDTUBE PRN PRN Hypoglycemia Simple Syrup 30 ml 11/23/20 11:53 Simple Syrup 15 Ml FEEDTUBE PRN PRN Hypoglycemia Sodium Bicarbonate 325 mg 11/23/20 11:53 12/05/20 23:46 Sodium Bicarbonate 325 Mg Tab FEEDTUBE 325 mg PRN PRN Administration For Clogged Feeding Tube Sodium Chloride 10 ml 11/16/20 10:00 12/17/20 10:31 Sodium Chloride 0.9% 10 Ml Flush Syringe IV Not Given BID RAEANN Sodium Chloride 10 ml 11/15/20 23:55 12/03/20 00:21 Sodium Chloride 0.9% 10 Ml Flush Syringe IV 10 ml PRN PRN Administration LINE FLUSH Nutrition/Malnutrition Assess - Dietary Evaluation Nutrition/Malnutrition Findings: Nutrition Notes Start: 11/20/20 12:03 Freq: Status: Active Protocol: Document 12/16/20 12:37 AL (Rec: 12/16/20 12:44 AL [id number]) Co-Sign 12/16/20 12:37 LP Nutrition Notes Initial or Follow up Reassessment Current Diagnosis Diabetes,Sepsis,Respiratory Failure Other Pertinent Diagnosis Bilat pneu, COVID-19 (+) Current Diet Glucerna 1.2 at 60 ml/hr Labs/Tests BG 203 Pertinent Medications Solumedrol Levophed Height 5 ft 6 in Weight 78.3 kg Usual Body Weight 80.5 kg [place] Body Weight (kg) 64.54 BMI 27.8 Weight change and time frame 10% wt loss/ 7days noted. Weight Status Overweight Subjective/Other Information FU for TF tolerance. Pt tolerating TF at 60 ml/hr ( goal rate). Will increase to 65 ml/hr to reflect wt change. Percent of energy/protein needs met: 100%/100% Burn Absent Trauma Absent GI Symptoms Last BM Difficulty In Swallowing,Chewing Current % PO Negligible Minimum of two criteria Yes Energy Intake (severe) < or equal to 50% Estimated Energy Requirement > or equal to 5 days Interpretation of Weight Loss (severe) >2% in 1 week Fluid Accumulation Moderate to Severe (severe) #3 Nutrition Diagnosis Inadequate oral intake Diagnosis Progress(for reassessment Continues documentation) #2 Nutrition Diagnosis Malnutrition Diagnosis Progress(for reassessment Continues documentation) #1 Nutrition Diagnosis Unintended weight loss Diagnosis Progress(for reassessment Continues documentation) Is patient on ventilator? Yes Is Patient Ambulatory and/or Out of Bed No REE-([place]-St. Jeor-confined to bed) [phone] Calculation Used for Recommendations [place]-St Jeor Additional Notes Protein: 87-145 g/day (1.2-2g/ kg) Fluid: 1ml/kcal or per MD Nutrition Intervention Change Diet Order: Continue TF Nutrition Support: Glucerna 1.2 at 65 ml/hr. Flush 125 ml q4h Kcal 1,872 Protein (gm) 93 Fluid (mL) 1,255 Goal #1 TF Goal #2 Meet at least 75% of energy and protein needs via TF Anticipated Discharge Needs: Unknown at the time Follow-Up By: 12/21/20 Additional Comments FU for TF tolerance <DEMETRIO GONZALEZ - Last Filed: 12/18/20 08:57> Assessment and Plan Assessment and plan: I saw and evaluated the patient. I agree with the findings and the plan of care as documented in the Nurse Practitioner's~note, with the following corrections and additions. The high probability of a clinically significant, sudden or life threatening deterioration of the [pulmonary, multiple organs] system(s) required my full and direct attention, intervention and personal management. The aggregate critical care time was [35] minutes. This time is in addition to time spent performing reported procedures but includes the following: [x] Data Review and interpretation [x] Patient assessment and monitoring of vital signs [x] Documentation [x] Medication orders and management Hospitalist Physical - Constitutional Vitals: Temp Pulse Resp BP Pulse Ox 99.2 F 103 H 30 H 96/52 91 12/18/20 07:51 12/18/20 07:45 12/18/20 07:45 12/18/20 07:45 12/18/20 07:45 HEART Score - HEART Score Troponin: Troponin T < 0.010 ng/mL (0.00-0.029) 12/11/20 06:30 Results - Labs CBC & Chem 7: 12/18/20 04:32 12/18/20 04:32 Labs: Laboratory Last Values WBC 6.2 K/mm3 (4.5-11.0) 12/18/20 04:32 RBC 2.88 M/mm3 (3.65-5.03) L 12/18/20 04:32 Hgb 8.6 gm/dl (11.8-15.2) L 12/18/20 04:32 Hct 26.0 % (35.5-45.6) L 12/18/20 04:32 MCV 90 fl (84-94) 12/18/20 04:32 MCH 30 pg (28-32) 12/18/20 04:32 MCHC 33 % (32-34) 12/18/20 04:32 RDW 15.6 % (13.2-15.2) H 12/18/20 04:32 Plt Count 265 K/mm3 (140-440) 12/18/20 04:32 Lymph % (Auto) 2.0 % (13.4-35.0) L 11/27/20 06:25 [place] % (Auto) 5.2 % (0.0-7.3) 11/27/20 06:25 Eos % (Auto) 0.0 % (0.0-4.3) 11/27/20 06:25 Baso % (Auto) 0.1 % (0.0-1.8) 11/27/20 06:25 Lymph # (Auto) 0.3 K/mm3 (1.2-5.4) L 11/27/20 06:25 [place] # (Auto) 0.7 K/mm3 (0.0-0.8) 11/27/20 06:25 Eos # (Auto) 0.0 K/mm3 (0.0-0.4) 11/27/20 06:25 Baso # (Auto) 0.0 K/mm3 (0.0-0.1) 11/27/20 06:25 Add Manual Diff Complete 12/14/20 04:35 Total Counted 100 12/14/20 04:35 Seg Neutrophils % Policy Intern 12/14/20 04:35 Seg Neuts % (Manual) 93.0 % (40.0-70.0) H 12/14/20 04:35 Band Neutrophils % 2.0 % 12/13/20 11:30 Lymphocytes % (Manual) 3.0 % (13.4-35.0) L 12/14/20 04:35 Monocytes % (Manual) 4.0 % (0.0-7.3) 12/14/20 04:35 Nucleated RBC % Not Reportable 12/14/20 04:35 Seg Neutrophils # 12.7 K/mm3 (1.8-7.7) H 11/27/20 06:25 Seg Neutrophils # Man 7.8 K/mm3 (1.8-7.7) H 12/14/20 04:35 Band Neutrophils # 0.0 K/mm3 12/14/20 04:35 Lymphocytes # (Manual) 0.3 K/mm3 (1.2-5.4) L 12/14/20 04:35 Abs React Lymphs (Man) 0.0 K/mm3 12/14/20 04:35 Monocytes # (Manual) 0.3 K/mm3 (0.0-0.8) 12/14/20 04:35 Eosinophils # (Manual) 0.0 K/mm3 (0.0-0.4) 12/14/20 04:35 Basophils # (Manual) 0.0 K/mm3 (0.0-0.1) 12/14/20 04:35 Metamyelocytes # 0.0 K/mm3 12/14/20 04:35 Myelocytes # 0.0 K/mm3 12/14/20 04:35 Promyelocytes # 0.0 K/mm3 12/14/20 04:35 Blast Cells # 0.0 K/mm3 12/14/20 04:35 WBC Morphology Not Reportable 12/14/20 04:35 Hypersegmented Neuts Not Reportable 12/14/20 04:35 Hyposegmented Neuts Not Reportable 12/14/20 04:35 Hypogranular Neuts Not Reportable 12/14/20 04:35 Smudge Cells Not Reportable 12/14/20 04:35 Toxic Granulation Not Reportable 12/14/20 04:35 Toxic Vacuolation Not Reportable 12/14/20 04:35 Dohle Bodies Not Reportable 12/14/20 04:35 Pelger-Huet Anomaly Not Reportable 12/14/20 04:35 Tony Rods Not Reportable 12/14/20 04:35 Platelet Estimate Consistent w auto 12/14/20 04:35 Clumped Platelets Not Reportable 12/14/20 04:35 Plt Clumps, EDTA Not Reportable 12/14/20 04:35 Large Platelets Not Reportable 12/14/20 04:35 Giant Platelets Not Reportable 12/14/20 04:35 Platelet Satelliting Not Reportable 12/14/20 04:35 Plt Morphology Comment Not Reportable 12/14/20 04:35 RBC Morphology Not Reportable 12/14/20 04:35 Dimorphic RBCs Not Reportable 12/14/20 04:35 Polychromasia Not Reportable 12/14/20 04:35 Hypochromasia Few 12/14/20 04:35 Poikilocytosis Not Reportable 12/14/20 04:35 Anisocytosis Few 12/14/20 04:35 Microcytosis Not Reportable 12/14/20 04:35 Macrocytosis Not Reportable 12/14/20 04:35 Spherocytes Not Reportable 12/14/20 04:35 Pappenheimer Bodies Not Reportable 12/14/20 04:35 Sickle Cells Not Reportable 12/14/20 04:35 Target Cells Not Reportable 12/14/20 04:35 Tear Drop Cells Not Reportable 12/14/20 04:35 Ovalocytes Not Reportable 12/14/20 04:35 Stomatocytes 1+ 12/03/20 04:35 Helmet Cells Not Reportable 12/14/20 04:[address] [place] Bodies Not Reportable 12/14/20 04:35 [place] Rings Not Reportable 12/14/20 04:35 [place] Cells Not Reportable 12/14/20 04:35 Bite Cells Not Reportable 12/14/20 04:35 Crenated Cell Not Reportable 12/14/20 04:35 Elliptocytes Not Reportable 12/14/20 04:35 Acanthocytes (Spur) Not Reportable 12/14/20 04:35 Rouleaux Not Reportable 12/14/20 04:35 Hemoglobin C Crystals Not Reportable 12/14/20 04:35 Schistocytes Not Reportable 12/14/20 04:35 Malaria parasites Not Reportable 12/14/20 04:35 [place] Bodies Not Reportable 12/14/20 04:35 Hem Pathologist Commnt No 12/14/20 04:35 D-Dimer 926.11 ng/mlDDU (0-234) H 11/26/20 06:04 ABG pH 7.370 (7.320-7.450) 12/18/20 03:56 POC ABG pCO2 78.0 mmHg (32.0-48.0) H 12/18/20 03:56 ABG pCO2 81.3 mm Hg 12/08/20 04:12 POC ABG pO2 52.3 mmHg (83-108) L 12/18/20 03:56 ABG pO2 69.7 mm Hg (80.0-90.0) L 12/08/20 04:12 POC ABG HCO3 44.1 12/18/20 03:56 ABG HCO3 50.1 mmol/L (20.0-26.0) H 12/08/20 04:12 ABG O2 Saturation 95.4 % (95.0-99.0) 12/08/20 04:12 ABG O2 Content 13.0 (0.0-44) 12/07/20 05:20 POC ABG Base Excess 15.5 12/18/20 03:56 ABG Base Excess 21.6 mmol/L (-2.0-3.0) H 12/08/20 04:12 ABG Hemoglobin 11.7 (12.0-17.5) L 12/18/20 03:56 ABG Oxyhemoglobin 84.9 (94-98) L 12/18/20 03:56 ABG Carboxyhemoglobin 2.0 % (0.0-5.0) 12/08/20 04:12 ABG Methemoglobin 0.3 (0.0-1.5) 12/18/20 03:56 ABG Sodium 131.6 mmol/L (136.0-145.0) L 12/18/20 03:56 ABG Potassium 4.2 mmol/L (3.40-4.50) 12/18/20 03:56 ABG Chloride 89.0 mmol/L (98-107) L 12/18/20 03:56 ABG Glucose 191 mg/dL (65-95) H 12/18/20 03:56 Oxyhemoglobin 93.2 % (95.0-99.0) L 12/08/20 04:12 Carboxyhemoglobin 1.3 (0.5-1.5) 12/18/20 03:56 FiO2 75.0 12/18/20 03:56 Sodium 134 mmol/L (137-145) L 12/18/20 04:32 Potassium 4.2 mmol/L (3.6-5.0) 12/18/20 04:32 Chloride 89.5 mmol/L (98-107) L 12/18/20 04:32 Carbon Dioxide 43 mmol/L (22-30) H* 12/18/20 04:32 Anion Gap 6 mmol/L 12/18/20 04:32 BUN 10 mg/dL (9-20) 12/18/20 04:32 Creatinine < 0.2 mg/dL (0.8-1.3) L 12/18/20 04:32 Estimated GFR > 60 ml/min 12/18/20 04:32 BUN/Creatinine Ratio 50 % 12/18/20 04:32 Glucose 182 mg/dL (75-100) H 12/18/20 04:32 POC Glucose 197 mg/dL (70-105) H 12/18/20 00:12 Hemoglobin A1c 11.7 % (4-6) H 11/16/20 05:29 Lactic Acid 2.60 mmol/L (0.7-2.0) H* 11/16/20 05:29 Calcium 8.1 mg/dL (8.4-10.2) L 12/18/20 04:32 Phosphorus 2.60 mg/dL (2.5-4.5) 12/17/20 17:25 Magnesium 1.60 mg/dL (1.7-2.3) L 12/17/20 17:25 Ferritin 778.8 ng/mL (30.0-300.0) H 11/26/20 04:00 Total Bilirubin 0.40 mg/dL (0.1-1.2) 12/17/20 17:25 AST 29 units/L (5-40) 12/17/20 17:25 ALT 47 units/L (7-56) 12/17/20 17:25 Alkaline Phosphatase 119 units/L (35-129) 12/17/20 17:25 Lactate Dehydrogenase 288 units/L (91-180) H 11/26/20 04:00 Total Creatine Kinase 47 units/L (55-170) L 12/17/20 17:25 CK-MB (CK-2) 1.8 ng/mL (0.0-4.0) 12/17/20 17:25 CK-MB (CK-2) Rel Index 3.8 (0-4) 12/17/20 17:25 Troponin T < 0.010 ng/mL (0.00-0.029) 12/11/20 06:30 C-Reactive Protein 1.40 mg/dL (0.00-1.30) H 11/26/20 04:00 NT-Pro-B Natriuret Pep 107.2 pg/mL (0-900) 11/17/20 10:21 Total Protein 6.2 g/dL (6.3-8.2) L 12/17/20 17:25 Albumin 2.1 g/dL (3.9-5) L 12/17/20 17:25 Albumin/Globulin Ratio 0.5 % 12/17/20 17:25 Triglycerides 150 mg/dL (2-149) H 12/12/20 05:16 Procalcitonin 0.16 ng/mL (<0.15) 12/12/20 05:16 Arterial Blood Glucose 191 mg/dL (65-95) H 12/18/20 03:56 Arterial Blood Ionized Calcium 4.4 mg/dL (4.6-5.3) L 12/18/20 03:56 Urine Color Faustina (Yellow) 11/16/20 01:45 Urine Turbidity Slightly-cloudy (Clear) 11/16/20 01:45 Urine pH 6.0 (5.0-7.0) 11/16/20 01:45 Ur Specific [place] 1.037 (1.003-1.030) H 11/16/20 01:45 Urine Protein 30 mg/dl mg/dL (Negative) 11/16/20 01:45 Urine Glucose (UA) >=500 mg/dL (Negative) 11/16/20 01:45 Urine Ketones 20 mg/dL (Negative) 11/16/20 01:45 Urine Blood Neg (Negative) 11/16/20 01:45 Urine Nitrite Neg (Negative) 11/16/20 01:45 Urine Bilirubin Neg (Negative) 11/16/20 01:45 Urine Urobilinogen 2.0 mg/dL (<2.0) 11/16/20 01:45 Ur Leukocyte Esterase Neg (Negative) 11/16/20 01:45 Urine WBC (Auto) 2.0 /HPF (0.0-6.0) 11/16/20 01:45 Urine RBC (Auto) 1.0 /HPF (0.0-6.0) 11/16/20 01:45 Urine Bacteria (Auto) 1+ /HPF (Negative) 11/16/20 01:45 Urine Mucus 3+ /HPF 11/16/20 01:45 Vancomycin Trough 4.0 ug/mL (5.0-20.0) L 11/29/20 15:40 Coronavirus (PCR) Positive (Negative) A 12/13/20 10:00 Hepatitis A IgM Ab Non-reactive (NonReactive) 12/17/20 21:40 Hep Bs Antigen Non-reactive (Negative) 12/17/20 21:40 Hep B Core IgM Ab Non-reactive (NonReactive) 12/17/20 21:40 Hepatitis C Antibody Non-reactive (NonReactive) 12/17/20 21:40 HIV 1&2 Antibody Rapid Non react (Non React) 12/17/20 21:40 HIV P24 Antigen Non react (Non React) 12/17/20 21:40 Microbiology: Microbiology 12/17/20 Unknown Peripheral/Venous Blood Culture - Preliminary Culture in Progress 12/17/20 Unknown Peripheral/Venous Blood Culture - Preliminary Culture in Progress - Diagnostic Impressions Diagnostic Impressions: Echocardiogram 11/16/20 10:34 Transthoracic Echocardiogram Indication: Shortness of breath-COVID BP: 108/77 HR: 92 Conclusions *Global left ventricular systolic function is normal. *The estimated ejection fraction is 60-65%. *Mild to moderate concentric left ventricular hypertrophy is observed. *There is trace of mitral regurgitation. *There is mild to moderate tricuspid regurgitation. *There is evidence of mild pulmonary hypertension. *The right ventricular systolic pressure is calculated at 31 mmHg. Findings Left Ventricle: The left ventricular chamber size is normal. Mild to moderate concentric left ventricular hypertrophy is observed. Global left ventricular systolic function is normal. The estimated ejection fraction is 60-65%. Left Atrium: The left atrial chamber size is normal. Right Ventricle: The right ventricular cavity size is normal. The right ventricular global systolic function is normal. Right Atrium: The right atrial cavity size is normal. Aortic Valve: The aortic valve is trileaflet. There is no evidence of aortic regurgitation. There is no evidence of aortic stenosis. Mitral Valve: The mitral valve leaflets appear normal. There is trace of mitral regurgitation. There is no evidence of mitral stenosis. Tricuspid Valve: The tricuspid valve leaflets are normal. There is mild to moderate tricuspid regurgitation. The right ventricular systolic pressure is calculated at 31 mmHg. There is evidence of mild pulmonary hypertension. Pulmonic Valve: There is trace pulmonic regurgitation. Pericardium: There is no pericardial effusion. Aorta: There is no dilatation of the ascending aorta. There is no dilatation of the aortic root. Venous: The inferior vena cava appears normal in size. Measurements Chambers 2D Name Value Normal Range IVSd (2D) 0.81 cm (0.6 - 1.1) LVPWd (2D) 0.79 cm (0.6 - 1.1) LVIDd (2D) 4.22 cm (3.7 - 5.6) LVIDs (2D) 3.1 cm (2 - 3.8) LV FS (2D) 26.71 % - EF Teichholz (2D) 52.55 % - Ao root diameter (2D) 3.34 cm (2 - 3.7) Volumes/Mass Name Value Normal Range LA ESV SP 4CH (A/L) 10.87 ml - LA ESV SP 2CH (A/L) 18.74 ml - LA ESV BP (A/L) 16.38 ml - LA ESV BP (A/L) index 8.62 ml/m2 - LA ESV SP 4CH (MOD) 10.32 ml - LA ESV SP 2CH (MOD) 17.66 ml - LA ESV BP (MOD) 15.12 ml - LA ESV BP (MOD) index 7.96 ml/m2 - Diastolic/Systolic Function Name Value Normal Range MV E-wave Vmax 0.76 m/sec - MV deceleration time 133.63 msec - MV A-wave Vmax 1.1 m/sec - MV E:A ratio 0.69 ratio - Aortic Valve Name Value Normal Range AV Vmax 1.44 m/sec - AV VTI 22.94 cm - AV peak gradient 8.33 mmHg - AV mean gradient 4.73 mmHg - LVOT diameter 2.2 cm - LVOT Vmax 1.04 m/sec - LVOT VTI 18.88 cm - LVOT peak gradient 4.34 mmHg - LVOT mean gradient 2.31 mmHg - SV LVOT 72.05 ml - EVANGELISTA (continuity Vmax) 2.75 cm2 - EVANGELISTA (continuity VTI) 3.14 cm2 - Tricuspid Valve Name Value Normal Range TR Vmax 2.64 m/sec - TR peak gradient 28 mmHg - RAP 3 mmHg - RVSP 31 mmHg - Gupta/IV: Voiding Method Incontinent IV Catheter Type [Left Peripheral IV Antecubital] Active Medications - Current Medications Current Medications: Generic Name Dose Route Start Last Admin Trade Name Freq PRN Reason Stop Dose Admin Acetaminophen 650 mg 11/15/20 23:55 12/17/20 20:19 Acetaminophen 325 Mg Tab PO 650 mg Q4H PRN Administration Pain MILD(1-3)/Fever >100.5/BUTTS Lipase/Protease/Amylase 1 each 11/23/20 11:53 12/05/20 23:45 Lipase 10,500/Protease 25,000/Amylase 43,750 (Units) Dr Cap FEEDTUBE 1 each PRN PRN Administration For Clogged Feeding Tube Dextrose 25 ml 12/10/20 05:21 12/10/20 05:24 Dextrose 50% In Water (25gm) 50 Ml Syringe IV 25 ml Q30MIN PRN Administration Hypoglycemia Protocol Enoxaparin Sodium 40 mg 12/03/20 22:00 12/17/20 22:19 Enoxaparin 40 Mg/0.4 Ml Inj SUB-Q 40 mg QDAY@2200 RAEANN Administration Famotidine 20 mg 12/16/20 10:00 12/17/20 22:20 Famotidine 20 Mg Tab PO 20 mg BID RAEANN Administration Fentanyl 50 mcg 11/21/20 21:53 12/14/20 15:04 Fentanyl 100 Mcg/2 Ml Inj IV 50 mcg Q10MIN PRN Administration ANALGESIA Hydrophilic Ointment 1 applic 11/21/20 21:53 11/30/20 21:33 Lip Therapy Vaseline TP 1 applic Q2HR PRN Administration Dry Lips Fentanyl Citrate 2,000 mcg in 100 mls @ 3.625 mls/hr 11/21/20 22:00 12/18/20 06:04 Fentanyl Drip Premix IV 4 mcg/kg/hr TITR RAEANN 14.5 mls/hr Administration Protocol 1 MCG/KG/HR Midazolam HCl 100 mg/ Sodium 100 mls @ 2 mls/hr 11/21/20 22:00 12/18/20 04:00 Chloride IV 4 mg/hr TITR RAEANN 4 mls/hr Titration Protocol 2 MG/HR Norepinephrine 4 mg in 250 mls @ 7.5 mls/hr 11/22/20 17:00 12/17/20 23:14 Levophed Drip 4 Mg/Ns 250 Ml IV 0 mcg/min TITR RAEANN 0 mls/hr Titration Protocol 2 MCG/MIN Propofol 1,000 mg in 100 mls @ 2.175 mls/hr 11/27/20 12:00 12/11/20 17:55 Diprivan 10 Mg/Ml IV 0 mcg/kg/min TITR RAEANN 0 mls/hr Titration Protocol 5 MCG/KG/MIN Dexmedetomidine HCl 400 mcg/ 104 mls @ 4.441 mls/hr 12/10/20 13:00 12/18/20 04:00 Sodium Chloride IV 0.4 mcg/kg/hr TITRATE RAEANN 8.882 mls/hr Titration Protocol 0.2 MCG/KG/HR Cefepime HCl 2 gm in 100 mls @ 200 mls/hr 12/17/20 14:00 12/18/20 05:40 Cefepime/Ns 2 Gm/100 Ml IV Infused Q8HR RAEANN Infusion Protocol Vancomycin HCl 1,500 mg/ 530 mls @ 333.333 mls/hr 12/17/20 16:00 12/18/20 05:50 Sodium Chloride IV Infused Q12H [facility] Infusion Insulin Glargine 8 units 12/17/20 13:52 12/17/20 22:21 Insulin Glargine 100 Units/Ml SUB-Q 8 units QHS RAEANN Administration Insulin Human Lispro 0 unit 11/22/20 06:00 12/18/20 06:05 Insulin Lispro 100 Unit/Ml SUB-Q 3 unit Q6HR [facility] Administration Protocol Methylprednisolone Sodium Succinate 20 mg 12/15/20 10:00 12/17/20 09:59 Methylprednisolone Sod Succinate 40 Mg/1 Ml Inj IV 12/18/20 10:01 20 mg Q24HR RAEANN Administration Metoclopramide HCl 10 mg 11/15/20 23:55 Metoclopramide 10 Mg/2 Ml Inj IV Q6H PRN Nausea And Vomiting Multi-Ingred Cream/Lotion/Oil/Oint 1 applic 11/21/20 21:53 Mineral Oil/Petrolatum, White Ophth Oint 3.5 Gm OU Q4HR PRN Dry Eye(s) Ondansetron HCl 4 mg 11/15/20 23:55 Ondansetron 4 Mg/2 Ml Inj IV Q8H PRN Nausea And Vomiting Prednisone 10 mg 12/19/20 10:00 Prednisone 10 Mg Tab PO 12/22/20 10:01 QDAY RAEANN Senna/Docusate Sodium 2 tab 12/03/20 13:00 12/17/20 22:25 Sennosides/Docusate Sodium 8.6/50 Mg Tab PO 2 tab BID RAEANN Administration Simple Syrup 15 ml 11/23/20 11:53 Simple Syrup 15 Ml FEEDTUBE PRN PRN Hypoglycemia Simple Syrup 30 ml 11/23/20 11:53 Simple Syrup 15 Ml FEEDTUBE PRN PRN Hypoglycemia Sodium Bicarbonate 325 mg 11/23/20 11:53 12/05/20 23:46 Sodium Bicarbonate 325 Mg Tab FEEDTUBE 325 mg PRN PRN Administration For Clogged Feeding Tube Sodium Chloride 10 ml 11/16/20 10:00 12/17/20 22:22 Sodium Chloride 0.9% 10 Ml Flush Syringe IV 10 ml BID RAEANN Administration Sodium Chloride 10 ml 11/15/20 23:55 12/03/20 00:21 Sodium Chloride 0.9% 10 Ml Flush Syringe IV 10 ml PRN PRN Administration LINE FLUSH Nutrition/Malnutrition Assess - Dietary Evaluation Nutrition/Malnutrition Findings: Nutrition Notes Start: 11/20/20 12:03 Freq: Status: Active Protocol: Document 12/16/20 12:37 AL (Rec: 12/16/20 12:44 AL [id number]) Co-Sign 12/16/20 12:37 LP Nutrition Notes Initial or Follow up Reassessment Current Diagnosis Diabetes,Sepsis,Respiratory Failure Other Pertinent Diagnosis Bilat pneu, COVID-19 (+) Current Diet Glucerna 1.2 at 60 ml/hr Labs/Tests BG 203 Pertinent Medications Solumedrol Levophed Height 5 ft 6 in Weight 78.3 kg Usual Body Weight 80.5 kg [place] Body Weight (kg) 64.54 BMI 27.8 Weight change and time frame 10% wt loss/ 7days noted. Weight Status Overweight Subjective/Other Information FU for TF tolerance. Pt tolerating TF at 60 ml/hr ( goal rate). Will increase to 65 ml/hr to reflect wt change. Percent of energy/protein needs met: 100%/100% Burn Absent Trauma Absent GI Symptoms Last BM Difficulty In Swallowing,Chewing Current % PO Negligible Minimum of two criteria Yes Energy Intake (severe) < or equal to 50% Estimated Energy Requirement > or equal to 5 days Interpretation of Weight Loss (severe) >2% in 1 week Fluid Accumulation Moderate to Severe (severe) #3 Nutrition Diagnosis Inadequate oral intake Diagnosis Progress(for reassessment Continues documentation) #2 Nutrition Diagnosis Malnutrition Diagnosis Progress(for reassessment Continues documentation) #1 Nutrition Diagnosis Unintended weight loss Diagnosis Progress(for reassessment Continues documentation) Is patient on ventilator? Yes Is Patient Ambulatory and/or Out of Bed No REE-([facility]-confined to bed) 2437.532 Calculation Used for Recommendations [facility] Additional Notes Protein: 87-145 g/day (1.2-2g/ kg) Fluid: 1ml/kcal or per MD Nutrition Intervention Change Diet Order: Continue TF Nutrition Support: Glucerna 1.2 at 65 ml/hr. Flush 125 ml q4h Kcal 1,872 Protein (gm) 93 Fluid (mL) 1,255 Goal #1 TF Goal #2 Meet at least 75% of energy and protein needs via TF Anticipated Discharge Needs: Unknown at the time Follow-Up By: 12/21/20 Additional Comments FU for TF tolerance
[2020-12-17] MEDS ORDERED: VANCOMYCIN 1,250 MG in SODIUM CHLORIDE 0.9% 500 ML 500 ML IV ONE (13:56)
--- NOTE | 2020-12-17 13:56 | Progress Note ---
Assessment and Plan Cultures: SARS CoV-2 PCR: positive Blood culture: No growth 11/21/2020 tracheal aspirate culture: MRSA 12/09/2020 blood culture: no growth 12/09/2020 sputum culture: Klebsiella A/P: 59-year-old male with: #Shock: on pressors. Febrile, restarted abx on 12/17/2020. #Bilateral pneumonia: secondary to COVID-19. Completed abx, remdesivir. #Klebsiella on ET aspirate culture: ?colonization v/s true disease, difficult to differentiate. Will treat given development of low-grade temperatures and white count. #Right-sided pneumothorax and pneumomediastinum: s/p chest tube. #Acute hypoxic respiratory failure: Remains on the vent. #Elevated d-dimer: DVT scan negative. Was unable to get CTA Chest due to patien ts unstable clinical status #Transaminitis: secondary to COVID-19. Recs: -given fever, ET aspirate culture ordered, restarted IV Cefepime + Vancomycin -steroids per pulmonary -very poor prognosis. Consider DNR status, recent literature showing mortality of 100% in COVID-19 patients who required CPR Dayday Driscoll MD, FACP [facility] ([facility] O: [phone] F: [phone] Subjective Date of service: 12/17/20 Principal diagnosis: COVID-19 Interval history: Febrile. Remains intubated with high requirements. Remains on pressors. Objective - Exam Narrative Exam: Physical Exam (reviewed in chart to minimize risk of transmission) Constitutional: deferred Head, Ears, Nose: deferred Eyes: deferred Neck: deferred Oral: deferred Cardiovascular: deferred Respiratory: deferred GI: deferred Musculoskeletal: deferred Skin: deferred Hem/Lymphatic: deferred Psych: deferred Neurological: deferred - Constitutional Vitals: Vital Signs Temp Pulse Resp BP Pulse Ox 99.4 F 96 H 30 H 110/61 97 12/17/20 12:08 12/17/20 12:02 12/17/20 09:45 12/17/20 12:02 12/17/20 12:02 Temperature -Last 24 Hours Temperature 99.4 F Temperature 99.5 F Temperature 99.3 F Temperature 99.3 F Temperature 99.7 F Temperature 99.7 F Temperature 99.4 F Temperature 99.4 F - Labs CBC & Chem 7: 12/16/20 04:46 12/16/20 04:46 Labs: Abnormal lab results 12/16/20 12/16/20 12/16/20 Range/Units 11:40 17:42 23:45 POC ABG pCO2 (32.0-48.0) mmHg POC ABG pO2 (83-108) mmHg ABG Hemoglobin (12.0-17.5) ABG Oxyhemoglobin (94-98) ABG Sodium (136.0-145.0) mmol/L ABG Chloride (98-107) mmol/L ABG Glucose (65-95) mg/dL POC Glucose 239 H 228 H 187 H (70-105) mg/dL Arterial Blood Glucose (65-95) mg/dL Arterial Blood Ionized Calcium (4.6-5.3) mg/dL 12/17/20 12/17/20 12/17/20 Range/Units 03:59 05:35 11:55 POC ABG pCO2 71.9 H (32.0-48.0) mmHg POC ABG pO2 57.5 L (83-108) mmHg ABG Hemoglobin 10.8 L (12.0-17.5) ABG Oxyhemoglobin 87.7 L (94-98) ABG Sodium 131.5 L (136.0-145.0) mmol/L ABG Chloride 90.0 L (98-107) mmol/L ABG Glucose 199 H (65-95) mg/dL POC Glucose 159 H 181 H (70-105) mg/dL Arterial Blood Glucose 199 H (65-95) mg/dL Arterial Blood Ionized Calcium 4.4 L (4.6-5.3) mg/dL - Imaging and cardiology Chest x-ray: report reviewed, image reviewed (b/l opacities)
[2020-12-17] MEDS ORDERED: VANCOMYCIN PHARMACY TO DOSE IV SCH (14:00)
[2020-12-17] MEDS ORDERED: SODIUM CHLORIDE 0.9% 500 ML 500 ML ONE (15:21)
[2020-12-17] MEDS: CEFEPIME/NS 2 GM/100 ML 2 GM/100 ML BAG IV SCH ×2 (15:30→22:20)
--- NOTE | 2020-12-17 16:12 | Event Note ---
I called the patient's brother Kehinde Holm at [phone] in an [facility] to update him. I left a voicemail asking for a call back when able at [phone].
[2020-12-17] MEDS: VANCOMYCIN 1,500 MG in SODIUM CHLORIDE 0.9% 500 ML 500 ML IV SCH (17:00)
[2020-12-17] MEDS: MIDAZOLAM 100 MG in SODIUM CHLORIDE 0.9% 80 ML IV SCH (17:33)
[2020-12-17 18:10] LABS: Creatine Kinase MB 1.8 ng/mL (0.0-4.0)
[2020-12-17 18:11] LABS: Alanine Aminotransferase 47 units/L (7-56); Albumin 2.1 g/dL (3.9-5); Blood Urea Nitrogen 12 mg/dL (9-20); Hemolysis Index 15
[2020-12-17 18:38] LABS: BUN/Creatinine Ratio 60
[2020-12-17] MEDS: ACETAMINOPHEN 325 MG TAB PO PRN (20:19)
[2020-12-17 22:06] LABS: Hepatitis B Surface Antigen Non-Reactive (Negative); Hepatitis C Virus Antibody Non-Reactive (NonReactive)
[2020-12-17] MEDS: ENOXAPARIN 40 MG/0.4 ML INJ SUB-Q SCH (22:19)
[2020-12-17] MEDS: INSULIN GLARGINE 100 UNITS/ML SUB-Q SCH (22:21)
[2020-12-18] MEDS: INSULIN LISPRO 100 UNIT/ML SUB-Q SCH ×5 (00:38→23:42)
[2020-12-18] MEDS: VANCOMYCIN 1,500 MG in SODIUM CHLORIDE 0.9% 500 ML 500 ML IV SCH ×2 (04:09→16:16)
[2020-12-18] MEDS: CEFEPIME/NS 2 GM/100 ML 2 GM/100 ML BAG IV SCH ×3 (05:09→22:12)
[2020-12-18 05:21] LABS: Hemoglobin 8.6 gm/dl (11.8-15.2); Mean Corpuscular HGB Conc 33 % (32-34); Mean Corpuscular Volume 90 fl (84-94); Platelet Count 265 K/mm3 (140-440); Red Blood Count 2.88 M/mm3 (3.65-5.03); Red Cell Distribution Width 15.6 % (13.2-15.2)
[2020-12-18 05:46] LABS: Blood Urea Nitrogen 10 mg/dL (9-20); Calcium 8.1 mg/dL (8.4-10.2); Hemolysis Index 4
[2020-12-18 05:50] LABS: BUN/Creatinine Ratio 50
[2020-12-18] MEDS: fentaNYL DRIP Premix 2,000 MCG/100 ML BAG IV SCH ×3 (06:04→19:16)
--- NOTE | 2020-12-18 08:36 | Progress Note ---
Assessment and Plan 59 y/o male with acute respiratory failure, abnormal CXR and abnormal lab studies. 12/18/20: Still on 75% and 18 of PEEP. Follow up cultures, Blood pending, urine has not resulted yet. Had another temp at 20:00 last night. CXR looks more like pulmonary edema but not in a position to diurese at this time as he occasionally requires vasopressor support given the amount of sedation needed to achieve a RASS of 4. If he continues to spike, would consider hospital acquired coverage of abx therapy. Prognosis remains guarded. 12/17/20: Back down to 75%. Febrile last night, if and when spikes again today, please obtain blood cultures times 2 and urine. Will go ahead and order repeat CXR now. Prognosis still remains guarded. 12/16/20: Back up to 100%. Once stabilized will attempt to wean back down. ABG in the am and may need to consider repeat ABG later this afternoon pending clinical state. Unable to prone given bilateral chest tubes. Prognosis remains guarded to poor. 12/15/20: Tolerating weaning from yesterday. RT to attempt to wean some more today. Kidney function remains unchanged. Guarded prognosis. 12/14/20: Unable to wean FiO2 today. Continue supportive measures. Great that his kidney function has maintained but given the amount of oxygen he continues to require, his chances of recovery continue to decrease. Family aware and will up date them as needed. Very very guarded prognosis. 12/13/20: WIll start Weaning FiO2 again tomorrow morning of PaO2 remains this good. Continue all other supportive measures. Guarded prognosis. Monitor renal function closely. 12/12/20: Long discussion with brother at door. Patient remains full code which is not unreasonable but family is realistic about outcome being poor. Will continue all supportive measures. IF clinical state worsens, will ask family to come back to see patient. Guarded Prognosis. 12/11/20: Will attempt to wean Diprovan off and increase precedex. Triglycerides were ok. IF we have to support with pressors we will but I have asked nursing to please be detailed in their checkouts as to why they did certain things with the continuous drips. Continue supportive measures. Brother is going to try to come and see him from [place] 12/10/20: No acute events overnight. Patient has had waxing and waning of the amount of oxygen he has required over the last 24-72 hours. I have a bad feeling that he is on the brink of cardiac arrest and this could happen at any moment. I am going to reach out to the brother today to explain to him my concerns. Patient is a full code. Very very guarded prognosis. 12/09/20: Repeat ABG later today. Wean FiO2 for sats >88%. Repeat CXR as well. With BP dropping could be relative adrenal insufficiency, will watch for now, however if pressor requirement increases would consider stress dose steroids and maybe volume replacement. Follow up cultures. Guarded prognosis. 12/08/20: Increase TV to 425. Drop FiO2 to 65% and wean for sats >88%. COntinue chest tubes. Change steroids to 20q12. 12/07/20: CXR is stable, no indication for another chest tube at this time. Will repeat ABG in 1 hour post change to 70% and wean accordingly. Dropping steroids to 20q8. Guarded prognosis. Same weaning parameters apply today as of 12/04/20 12/04/20: Continue to wean steroids to off. Continue to wean FiO2 for sats >88%. Keep PEEP at current level, would not feel comfortable weaning PEEP until FiO2 at 35-40%. Continue chest tubes to suction. PaO2 of >55, pH of >7.2 and sats >88% are acceptable. : Dropped steroids down to 40q8 and will start to wean from there. Continue to slowly wean FiO2 first, keep PEEP at current level. Spoke with Kehinde, please see my event note, who is the biological brother. He had no questions but thanked us for our care. Prognosis remains very very guarded. PaO2 of 55 and pH of >7.2 and sats of >88% are all acceptable. 12/02/20: Wean FiO2 for sats >88% and PaO2 >55. Unable to prone currently secondary to bilateral chest tubes. COntinue high dose steroids. CM To figure out who is the immediate next of kin that can make decisions and then we will discuss the current clinical situation with them. 12/01/20: Continue PEEP and FiO2 elevated to keep sats >88% and PaO2 >55. Small lung volumes and high PEEP. very very guarded prognosis. 11/30/20: Worsening hypoxemia. Chest tubes stable. Likely just worsening disease. Unable to prone now. Increase PEEP to 18 and FiO2 back up to 100. Continue 3 sedatives for RASS of -2. Obtain 12 lead to look at T waves as K was only 4.6 on yesterday. Guarded, guarded prognosis 11/29/20: Second chest tube in on yesterday. CXR is stable. ABG unchanged. Wi ll likely increase PEEP now that chest tubes are in. No further paralytics. Still making good urine. Prognosis remains guarded. Will check chemistry to assess Potassium levels given peaked t's seen on monitor. 11/28/20: Second chest tube today. Once chest tube in, will likely increase PEEP to 18 and repeat gas about 2 hours after this. Continue paralytic today. No proning now that patient will have bilateral chest tubes. VEry guarded prognosis. 11/27/20: Spoke with surgery who have agreed to evaluate and placed chest tube on either right or left side pending CXR reading. Will monitor for 36-48 hours and if no resolution, will need chest tube placed on opposite side as well. Once placed, will likely paralyze again but hold on proning for now. Guarded prognosis. 11/26/20: Paralytics are off. Continue current level of sedation. Will prone for 12 hours today and repeat ABG in the am. Continue lung protective strategy. Guarded prognosis. 11/25/20: Prone again to 16 hours, will prone at 12-12:30. Continue paralytics for 24 more hours. Discussed the idea of permissive hypercapnea again today and as long as pH is above 7.2 no changes should be made to TV and or RR without discussing with physician. Continue to monitor urine output, guarded prognosis. Hold on lasix therapy today. 11/24/20: Prone again today. Will try 48 hours of paralyzing the patient to see if this will help with oxygenation. Will speak with RT's about permissive hypercapnea and that pH's of 7.2 and greater are ok. Continue high doses steroids. Prognosis is still very very guarded. If not improvement with paralytics, will attempt transfer. 11/23/20: Prone again today for 12 hours. Continue High Dose steroids. Hold on lasix given marginal BP's. Prognosis is very very guarded to poor. Will continue all supportive measures. If not able to wean from 100%, will attempt transfer for ECMO. 11/20/20: WIll change to solumedrol 60q6 today. Hold on lasix today. Given his increasing oxygen requirement, will likely end up intubated. OVerall prognosis is very poor. 11/19/20: lasix 40mg IV x1 today. Will speak with ID but may consider increasing steroids to see if this will help with oxygenation. Continue Remdesivir. Prognosis remains guarded. 11/18/20: Continue bipap, goal is to attempt to prevent prolong intubation for as long as possible. Lasix again today. Steroids and Remdesivir. Guarded Prognosis. 11/17/20: Continue bipap therapy. Monitor mental state. High risk for Intubation. Continue BID anticoagulation. Prone if able. BNP was elevated but not grossly elevated. Will still give lasix with hopes of achieving net negative state. STeroids and remdesivir. Overall prognosis is guarded, extremely guarded. 1. Pulm- Agree with concern for covid. Agree with empiric abx but procal is only mildly elevated. Await cultures. Continue bipap therapy for now but will need to monitor closely. [facility] has ordered CTA, but I spoke with pharmacy and we will empirically treat with BID lovenox therapy. COntinue empiric steroid therapy for COVID until studies back. Not sure that he will be able to prone on bipap therapy. Monitor volume status and run as dry as possible. 2. Renal-normal function but all electrolytes abnormal. HYponatremia and Hypochloremia volume up vs volume down. Sent BNP. Would suggest obtaning echo as well. Not sure what to make of elevated lactate unless that is from increased work of breathing or damage to other tissue unknown. May need to check LFT's and Coags as well. 3. Guarded Prognosis. CCT 31 minutes. Subjective Date of service: 12/18/20 Principal diagnosis: COVID-19 Interval history: No acute events. spoke with nursing this am to clarify level of sedation for the patient. Hypoxic this am on blood gas. Objective Vital Signs - 12hr 12/17/20 12/17/20 12/17/20 20:45 21:00 21:16 Temperature Pulse Rate 104 H 117 H 118 H Pulse Rate [ From Monitor] Respiratory 21 17 30 H Rate Blood Pressure 130/78 130/78 130/78 O2 Sat by Pulse 96 94 93 Oximetry 12/17/20 12/17/20 12/17/20 21:30 21:45 22:00 Temperature Pulse Rate 118 H 106 H 108 H Pulse Rate [ From Monitor] Respiratory 27 H 30 H 19 Rate Blood Pressure 150/91 139/81 147/85 O2 Sat by Pulse 92 94 94 Oximetry 12/17/20 12/17/20 12/17/20 22:15 22:30 22:46 Temperature Pulse Rate 111 H 115 H 100 H Pulse Rate [ From Monitor] Respiratory 16 15 30 H Rate Blood Pressure 140/88 144/88 125/71 O2 Sat by Pulse 95 95 96 Oximetry 12/17/20 12/17/20 12/17/20 23:00 23:15 23:24 Temperature Pulse Rate 102 H 112 H 108 H Pulse Rate [ From Monitor] Respiratory 30 H 24 15 Rate Blood Pressure 125/71 137/87 137/87 O2 Sat by Pulse 96 96 96 Oximetry 12/17/20 12/17/20 12/17/20 23:30 23:34 23:45 Temperature Pulse Rate 106 H 106 H 104 H Pulse Rate [ From Monitor] Respiratory 15 17 30 H Rate Blood Pressure 120/75 120/75 129/73 O2 Sat by Pulse 96 96 95 Oximetry 12/18/20 12/18/20 12/18/20 00:00 00:10 00:15 Temperature 98.8 F Pulse Rate 98 H 108 H 100 H Pulse Rate [ 98 H From Monitor] Respiratory 30 H 30 H Rate Blood Pressure 136/80 152/90 116/67 O2 Sat by Pulse 92 94 94 Oximetry 12/18/20 12/18/20 12/18/20 00:30 00:34 00:45 Temperature 98.8 F Pulse Rate 101 H 95 H Pulse Rate [ From Monitor] Respiratory 30 H 30 H Rate Blood Pressure 111/68 107/61 O2 Sat by Pulse 94 94 Oximetry 12/18/20 12/18/20 12/18/20 01:00 01:15 01:30 Temperature Pulse Rate 93 H 95 H 96 H Pulse Rate [ From Monitor] Respiratory 30 H 30 H 30 H Rate Blood Pressure 107/61 134/76 132/75 O2 Sat by Pulse 94 93 96 Oximetry 12/18/20 12/18/20 12/18/20 01:45 02:00 02:15 Temperature Pulse Rate 90 92 H 92 H Pulse Rate [ From Monitor] Respiratory 30 H 30 H 30 H Rate Blood Pressure 111/60 113/68 111/64 O2 Sat by Pulse 96 96 96 Oximetry 12/18/20 12/18/20 12/18/20 02:30 02:45 03:00 Temperature Pulse Rate 104 H 107 H 100 H Pulse Rate [ From Monitor] Respiratory 29 H 30 H 30 H Rate Blood Pressure 111/64 144/83 145/85 O2 Sat by Pulse 96 94 94 Oximetry 12/18/20 12/18/20 12/18/20 03:15 03:30 03:41 Temperature Pulse Rate 114 H 104 H 108 H Pulse Rate [ From Monitor] Respiratory 30 H 30 H Rate Blood Pressure 151/84 152/90 O2 Sat by Pulse 94 94 94 Oximetry 12/18/20 12/18/20 12/18/20 03:46 04:00 04:15 Temperature 98.7 F Pulse Rate 101 H 103 H 107 H Pulse Rate [ 103 H From Monitor] Respiratory 29 H 30 H 30 H Rate Blood Pressure 152/90 136/82 148/88 O2 Sat by Pulse 93 93 93 Oximetry 12/18/20 12/18/20 12/18/20 04:30 04:45 05:00 Temperature Pulse Rate 111 H 108 H Pulse Rate [ From Monitor] Respiratory 30 H 30 H 21 Rate Blood Pressure 152/90 155/86 168/97 O2 Sat by Pulse 93 93 90 Oximetry 12/18/20 12/18/20 12/18/20 05:15 05:30 05:45 Temperature Pulse Rate 109 H 113 H 112 H Pulse Rate [ From Monitor] Respiratory 30 H 30 H 30 H Rate Blood Pressure 141/89 144/83 137/82 O2 Sat by Pulse 93 94 92 Oximetry 12/18/20 12/18/20 12/18/20 06:00 06:15 06:30 Temperature Pulse Rate 120 H 117 H 114 H Pulse Rate [ From Monitor] Respiratory 30 H 16 14 Rate Blood Pressure 137/82 144/80 132/77 O2 Sat by Pulse 91 91 92 Oximetry 12/18/20 12/18/20 12/18/20 06:45 07:00 07:15 Temperature Pulse Rate 108 H 109 H 108 H Pulse Rate [ From Monitor] Respiratory 22 30 H 30 H Rate Blood Pressure 118/69 130/68 105/58 O2 Sat by Pulse 91 89 91 Oximetry 12/18/20 12/18/20 12/18/20 07:30 07:45 07:51 Temperature 99.2 F Pulse Rate 105 H 103 H Pulse Rate [ From Monitor] Respiratory 30 H 30 H Rate Blood Pressure 90/51 96/52 O2 Sat by Pulse 92 91 Oximetry Constitutional: other (on vent orally intubated) ENT: other (Now intubated) Ascultation: Bilateral: rales, rhonchi Percussion: Bilateral: not dull Cardiovascular: regular rate and rhythm Gastrointestinal: soft, non-tender Neurologic: other (on vent) CBC and BMP: 12/18/20 04:32 12/18/20 04:32 ABG, PT/INR, D-dimer: ABG ABG pH 7.370 (7.320-7.450) 12/18/20 03:56 POC ABG pCO2 78.0 mmHg (32.0-48.0) H 12/18/20 03:56 ABG pCO2 81.3 mm Hg 12/08/20 04:12 POC ABG pO2 52.3 mmHg (83-108) L 12/18/20 03:56 ABG pO2 69.7 mm Hg (80.0-90.0) L 12/08/20 04:12 POC ABG HCO3 44.1 12/18/20 03:56 ABG O2 Saturation 95.4 % (95.0-99.0) 12/08/20 04:12 PT/INR, D-dimer D-Dimer 926.11 ng/mlDDU (0-234) H 11/26/20 06:04 Abnormal lab findings: Abnormal Labs 11/15/20 11/15/20 11/15/20 10:39 10:39 10:39 WBC 14.3 H RBC 5.17 H Hgb Hct RDW Plt Count Lymph % (Auto) 7.8 L [place] % (Auto) 7.6 H Lymph # (Auto) 1.1 L [place] # (Auto) 1.1 H Baso # (Auto) Seg Neutrophils % 83.3 H Seg Neuts % (Manual) Lymphocytes % (Manual) Seg Neutrophils # 11.9 H Seg Neutrophils # Man Lymphocytes # (Manual) D-Dimer ABG pH POC ABG pCO2 POC ABG pO2 ABG pO2 ABG HCO3 ABG O2 Saturation ABG Base Excess ABG Hemoglobin ABG Oxyhemoglobin ABG Sodium ABG Potassium ABG Chloride ABG Glucose Oxyhemoglobin Carboxyhemoglobin Sodium 128 L Potassium Chloride 96.0 L Carbon Dioxide BUN Creatinine 0.7 L Glucose 238 H POC Glucose Hemoglobin A1c Lactic Acid 4.10 H* Calcium 7.0 L Magnesium Ferritin Total Bilirubin 1.40 H AST 49 H ALT 70 H Alkaline Phosphatase Lactate Dehydrogenase 663 H Total Creatine Kinase C-Reactive Protein 19.80 H Total Protein Albumin 2.9 L Triglycerides Arterial Blood Glucose Arterial Blood Ionized Calcium Ur Specific [place] Vancomycin Trough Coronavirus (PCR) 11/15/20 11/15/20 11/15/20 10:39 10:39 11:20 WBC RBC Hgb Hct RDW Plt Count Lymph % (Auto) [place] % (Auto) Lymph # (Auto) [place] # (Auto) Baso # (Auto) Seg Neutrophils % Seg Neuts % (Manual) Lymphocytes % (Manual) Seg Neutrophils # Seg Neutrophils # Man Lymphocytes # (Manual) D-Dimer > 52575 H ABG pH POC ABG pCO2 29.9 L POC ABG pO2 137.3 H ABG pO2 ABG HCO3 ABG O2 Saturation ABG Base Excess ABG Hemoglobin ABG Oxyhemoglobin ABG Sodium 126.5 L ABG Potassium ABG Chloride ABG Glucose 248 H Oxyhemoglobin Carboxyhemoglobin Sodium Potassium Chloride Carbon Dioxide BUN Creatinine Glucose POC Glucose Hemoglobin A1c Lactic Acid Calcium Magnesium Ferritin 672.8 H Total Bilirubin AST ALT Alkaline Phosphatase Lactate Dehydrogenase Total Creatine Kinase C-Reactive Protein Total Protein Albumin Triglycerides Arterial Blood Glucose 248 H Arterial Blood Ionized Calcium 4.1 L Ur Specific [place] Vancomycin Trough Coronavirus (PCR) 11/15/20 11/15/20 11/16/20 13:41 23:41 01:45 WBC RBC Hgb Hct RDW Plt Count Lymph % (Auto) [place] % (Auto) Lymph # (Auto) [place] # (Auto) Baso # (Auto) Seg Neutrophils % Seg Neuts % (Manual) Lymphocytes % (Manual) Seg Neutrophils # Seg Neutrophils # Man Lymphocytes # (Manual) D-Dimer ABG pH POC ABG pCO2 POC ABG pO2 ABG pO2 ABG HCO3 ABG O2 Saturation ABG Base Excess ABG Hemoglobin ABG Oxyhemoglobin ABG Sodium ABG Potassium ABG Chloride ABG Glucose Oxyhemoglobin Carboxyhemoglobin Sodium Potassium Chloride Carbon Dioxide BUN Creatinine Glucose POC Glucose 284 H Hemoglobin A1c Lactic Acid 2.30 H* Calcium Magnesium Ferritin Total Bilirubin AST ALT Alkaline Phosphatase Lactate Dehydrogenase Total Creatine Kinase C-Reactive Protein Total Protein Albumin Triglycerides Arterial Blood Glucose Arterial Blood Ionized Calcium Ur Specific [place] 1.037 H Vancomycin Trough Coronavirus (PCR) 11/16/20 11/16/20 11/16/20 05:29 05:29 05:29 WBC 12.9 H RBC Hgb Hct RDW Plt Count Lymph % (Auto) 4.5 L [place] % (Auto) Lymph # (Auto) 0.6 L [place] # (Auto) Baso # (Auto) 0.2 H Seg Neutrophils % 89.8 H Seg Neuts % (Manual) Lymphocytes % (Manual) Seg Neutrophils # 11.5 H Seg Neutrophils # Man Lymphocytes # (Manual) D-Dimer ABG pH POC ABG pCO2 POC ABG pO2 ABG pO2 ABG HCO3 ABG O2 Saturation ABG Base Excess ABG Hemoglobin ABG Oxyhemoglobin ABG Sodium ABG Potassium ABG Chloride ABG Glucose Oxyhemoglobin Carboxyhemoglobin Sodium 131 L Potassium Chloride Carbon Dioxide 21 L BUN 23 H Creatinine 0.6 L Glucose 342 H POC Glucose Hemoglobin A1c Lactic Acid 2.60 H* Calcium 7.0 L Magnesium Ferritin Total Bilirubin AST ALT Alkaline Phosphatase Lactate Dehydrogenase Total Creatine Kinase C-Reactive Protein Total Protein Albumin 2.4 L Triglycerides Arterial Blood Glucose Arterial Blood Ionized Calcium Ur Specific [place] Vancomycin Trough Coronavirus (PCR) 11/16/20 11/16/20 11/16/20 05:29 08:11 12:11 WBC RBC Hgb Hct RDW Plt Count Lymph % (Auto) [place] % (Auto) Lymph # (Auto) [place] # (Auto) Baso # (Auto) Seg Neutrophils % Seg Neuts % (Manual) Lymphocytes % (Manual) Seg Neutrophils # Seg Neutrophils # Man Lymphocytes # (Manual) D-Dimer ABG pH POC ABG pCO2 POC ABG pO2 ABG pO2 ABG HCO3 ABG O2 Saturation ABG Base Excess ABG Hemoglobin ABG Oxyhemoglobin ABG Sodium ABG Potassium ABG Chloride ABG Glucose Oxyhemoglobin Carboxyhemoglobin Sodium Potassium Chloride Carbon Dioxide BUN Creatinine Glucose POC Glucose 329 H 320 H Hemoglobin A1c 11.7 H Lactic Acid Calcium Magnesium Ferritin Total Bilirubin AST ALT Alkaline Phosphatase Lactate Dehydrogenase Total Creatine Kinase C-Reactive Protein Total Protein Albumin Triglycerides Arterial Blood Glucose Arterial Blood Ionized Calcium Ur Specific [place] Vancomycin Trough Coronavirus (PCR) 11/16/20 11/16/20 11/16/20 16:13 21:29 Unknown WBC RBC Hgb Hct RDW Plt Count Lymph % (Auto) [place] % (Auto) Lymph # (Auto) [place] # (Auto) Baso # (Auto) Seg Neutrophils % Seg Neuts % (Manual) Lymphocytes % (Manual) Seg Neutrophils # Seg Neutrophils # Man Lymphocytes # (Manual) D-Dimer ABG pH POC ABG pCO2 POC ABG pO2 ABG pO2 ABG HCO3 ABG O2 Saturation ABG Base Excess ABG Hemoglobin ABG Oxyhemoglobin ABG Sodium ABG Potassium ABG Chloride ABG Glucose Oxyhemoglobin Carboxyhemoglobin Sodium Potassium Chloride Carbon Dioxide BUN Creatinine Glucose POC Glucose 257 H 376 H Hemoglobin A1c Lactic Acid Calcium Magnesium Ferritin Total Bilirubin AST ALT Alkaline Phosphatase Lactate Dehydrogenase Total Creatine Kinase C-Reactive Protein Total Protein Albumin Triglycerides Arterial Blood Glucose Arterial Blood Ionized Calcium Ur Specific [place] Vancomycin Trough Coronavirus (PCR) Positive A 11/17/20 11/17/20 11/17/20 07:42 12:07 17:25 WBC RBC Hgb Hct RDW Plt Count Lymph % (Auto) [place] % (Auto) Lymph # (Auto) [place] # (Auto) Baso # (Auto) Seg Neutrophils % Seg Neuts % (Manual) Lymphocytes % (Manual) Seg Neutrophils # Seg Neutrophils # Man Lymphocytes # (Manual) D-Dimer ABG pH POC ABG pCO2 POC ABG pO2 ABG pO2 ABG HCO3 ABG O2 Saturation ABG Base Excess ABG Hemoglobin ABG Oxyhemoglobin ABG Sodium ABG Potassium ABG Chloride ABG Glucose Oxyhemoglobin Carboxyhemoglobin Sodium Potassium Chloride Carbon Dioxide BUN Creatinine Glucose POC Glucose 231 H 380 H 302 H Hemoglobin A1c Lactic Acid Calcium Magnesium Ferritin Total Bilirubin AST ALT Alkaline Phosphatase Lactate Dehydrogenase Total Creatine Kinase C-Reactive Protein Total Protein Albumin Triglycerides Arterial Blood Glucose Arterial Blood Ionized Calcium Ur Specific [place] Vancomycin Trough Coronavirus (PCR) 11/17/20 11/18/20 11/18/20 21:53 04:25 07:45 WBC RBC Hgb Hct RDW Plt Count Lymph % (Auto) [place] % (Auto) Lymph # (Auto) [place] # (Auto) Baso # (Auto) Seg Neutrophils % Seg Neuts % (Manual) Lymphocytes % (Manual) Seg Neutrophils # Seg Neutrophils # Man Lymphocytes # (Manual) D-Dimer ABG pH POC ABG pCO2 POC ABG pO2 ABG pO2 ABG HCO3 ABG O2 Saturation ABG Base Excess ABG Hemoglobin ABG Oxyhemoglobin ABG Sodium ABG Potassium ABG Chloride ABG Glucose Oxyhemoglobin Carboxyhemoglobin Sodium 136 L Potassium Chloride Carbon Dioxide BUN 24 H Creatinine 0.6 L Glucose 212 H POC Glucose 293 H 216 H Hemoglobin A1c Lactic Acid Calcium 7.4 L Magnesium Ferritin Total Bilirubin AST 41 H ALT Alkaline Phosphatase 142 H Lactate Dehydrogenase Total Creatine Kinase C-Reactive Protein Total Protein Albumin 2.3 L Triglycerides Arterial Blood Glucose Arterial Blood Ionized Calcium Ur Specific [place] Vancomycin Trough Coronavirus (PCR) 11/18/20 11/18/20 11/18/20 12:28 15:58 21:37 WBC RBC Hgb Hct RDW Plt Count Lymph % (Auto) [place] % (Auto) Lymph # (Auto) [place] # (Auto) Baso # (Auto) Seg Neutrophils % Seg Neuts % (Manual) Lymphocytes % (Manual) Seg Neutrophils # Seg Neutrophils # Man Lymphocytes # (Manual) D-Dimer ABG pH POC ABG pCO2 POC ABG pO2 ABG pO2 ABG HCO3 ABG O2 Saturation ABG Base Excess ABG Hemoglobin ABG Oxyhemoglobin ABG Sodium ABG Potassium ABG Chloride ABG Glucose Oxyhemoglobin Carboxyhemoglobin Sodium Potassium Chloride Carbon Dioxide BUN Creatinine Glucose POC Glucose 165 H 220 H 311 H Hemoglobin A1c Lactic Acid Calcium Magnesium Ferritin Total Bilirubin AST ALT Alkaline Phosphatase Lactate Dehydrogenase Total Creatine Kinase C-Reactive Protein Total Protein Albumin Triglycerides Arterial Blood Glucose Arterial Blood Ionized Calcium Ur Specific [place] Vancomycin Trough Coronavirus (PCR) 11/19/20 11/19/20 11/19/20 05:35 07:40 12:39 WBC RBC Hgb Hct RDW Plt Count Lymph % (Auto) [place] % (Auto) Lymph # (Auto) [place] # (Auto) Baso # (Auto) Seg Neutrophils % Seg Neuts % (Manual) Lymphocytes % (Manual) Seg Neutrophils # Seg Neutrophils # Man Lymphocytes # (Manual) D-Dimer ABG pH POC ABG pCO2 POC ABG pO2 ABG pO2 ABG HCO3 ABG O2 Saturation ABG Base Excess ABG Hemoglobin ABG Oxyhemoglobin ABG Sodium ABG Potassium ABG Chloride ABG Glucose Oxyhemoglobin Carboxyhemoglobin Sodium 132 L Potassium Chloride Carbon Dioxide BUN 25 H Creatinine 0.5 L Glucose 179 H POC Glucose 149 H 306 H Hemoglobin A1c Lactic Acid Calcium 7.5 L Magnesium Ferritin Total Bilirubin AST ALT Alkaline Phosphatase 139 H Lactate Dehydrogenase Total Creatine Kinase C-Reactive Protein Total Protein Albumin 2.4 L Triglycerides Arterial Blood Glucose Arterial Blood Ionized Calcium Ur Specific [place] Vancomycin Trough Coronavirus (PCR) 11/19/20 11/19/20 11/20/20 16:17 21:25 08:30 WBC RBC Hgb Hct RDW Plt Count Lymph % (Auto) [place] % (Auto) Lymph # (Auto) [place] # (Auto) Baso # (Auto) Seg Neutrophils % Seg Neuts % (Manual) Lymphocytes % (Manual) Seg Neutrophils # Seg Neutrophils # Man Lymphocytes # (Manual) D-Dimer ABG pH POC ABG pCO2 POC ABG pO2 ABG pO2 ABG HCO3 ABG O2 Saturation ABG Base Excess ABG Hemoglobin ABG Oxyhemoglobin ABG Sodium ABG Potassium ABG Chloride ABG Glucose Oxyhemoglobin Carboxyhemoglobin Sodium Potassium Chloride Carbon Dioxide BUN Creatinine Glucose POC Glucose 364 H 347 H 141 H Hemoglobin A1c Lactic Acid Calcium Magnesium Ferritin Total Bilirubin AST ALT Alkaline Phosphatase Lactate Dehydrogenase Total Creatine Kinase C-Reactive Protein Total Protein Albumin Triglycerides Arterial Blood Glucose Arterial Blood Ionized Calcium Ur Specific [place] Vancomycin Trough Coronavirus (PCR) 11/20/20 11/20/20 11/20/20 08:50 11:32 16:19 WBC RBC Hgb Hct RDW Plt Count Lymph % (Auto) [place] % (Auto) Lymph # (Auto) [place] # (Auto) Baso # (Auto) Seg Neutrophils % Seg Neuts % (Manual) Lymphocytes % (Manual) Seg Neutrophils # Seg Neutrophils # Man Lymphocytes # (Manual) D-Dimer ABG pH POC ABG pCO2 POC ABG pO2 ABG pO2 ABG HCO3 ABG O2 Saturation ABG Base Excess ABG Hemoglobin ABG Oxyhemoglobin ABG Sodium ABG Potassium ABG Chloride ABG Glucose Oxyhemoglobin Carboxyhemoglobin Sodium 132 L Potassium Chloride 97.6 L Carbon Dioxide BUN 26 H Creatinine 0.5 L Glucose 201 H POC Glucose 296 H 327 H Hemoglobin A1c Lactic Acid Calcium 7.9 L Magnesium Ferritin Total Bilirubin AST ALT Alkaline Phosphatase 137 H Lactate Dehydrogenase Total Creatine Kinase C-Reactive Protein Total Protein Albumin 2.6 L Triglycerides Arterial Blood Glucose Arterial Blood Ionized Calcium Ur Specific [place] Vancomycin Trough Coronavirus (PCR) 11/20/20 11/21/20 11/21/20 22:09 07:59 13:51 WBC RBC Hgb Hct RDW Plt Count Lymph % (Auto) [place] % (Auto) Lymph # (Auto) [place] # (Auto) Baso # (Auto) Seg Neutrophils % Seg Neuts % (Manual) Lymphocytes % (Manual) Seg Neutrophils # Seg Neutrophils # Man Lymphocytes # (Manual) D-Dimer ABG pH POC ABG pCO2 POC ABG pO2 ABG pO2 ABG HCO3 ABG O2 Saturation ABG Base Excess ABG Hemoglobin ABG Oxyhemoglobin ABG Sodium ABG Potassium ABG Chloride ABG Glucose Oxyhemoglobin Carboxyhemoglobin Sodium Potassium Chloride Carbon Dioxide BUN Creatinine Glucose POC Glucose 311 H 218 H 304 H Hemoglobin A1c Lactic Acid Calcium Magnesium Ferritin Total Bilirubin AST ALT Alkaline Phosphatase Lactate Dehydrogenase Total Creatine Kinase C-Reactive Protein Total Protein Albumin Triglycerides Arterial Blood Glucose Arterial Blood Ionized Calcium Ur Specific [place] Vancomycin Trough Coronavirus (PCR) 11/21/20 11/21/20 11/21/20 16:09 21:34 23:00 WBC RBC Hgb Hct RDW Plt Count Lymph % (Auto) [place] % (Auto) Lymph # (Auto) [place] # (Auto) Baso # (Auto) Seg Neutrophils % Seg Neuts % (Manual) Lymphocytes % (Manual) Seg Neutrophils # Seg Neutrophils # Man Lymphocytes # (Manual) D-Dimer ABG pH 7.206 L POC ABG pCO2 59.3 H POC ABG pO2 76.7 L ABG pO2 ABG HCO3 ABG O2 Saturation ABG Base Excess ABG Hemoglobin ABG Oxyhemoglobin ABG Sodium 133.1 L ABG Potassium ABG Chloride ABG Glucose 320 H Oxyhemoglobin Carboxyhemoglobin Sodium Potassium Chloride Carbon Dioxide BUN Creatinine Glucose POC Glucose 239 H 279 H Hemoglobin A1c Lactic Acid Calcium Magnesium Ferritin Total Bilirubin AST ALT Alkaline Phosphatase Lactate Dehydrogenase Total Creatine Kinase C-Reactive Protein Total Protein Albumin Triglycerides Arterial Blood Glucose 320 H Arterial Blood Ionized Calcium Ur Specific [place] Vancomycin Trough Coronavirus (PCR) 11/22/20 11/22/20 11/22/20 04:52 04:52 04:52 WBC RBC Hgb Hct RDW Plt Count Lymph % (Auto) [place] % (Auto) Lymph # (Auto) [place] # (Auto) Baso # (Auto) Seg Neutrophils % Seg Neuts % (Manual) Lymphocytes % (Manual) Seg Neutrophils # Seg Neutrophils # Man Lymphocytes # (Manual) D-Dimer 1858.36 H ABG pH POC ABG pCO2 POC ABG pO2 ABG pO2 ABG HCO3 ABG O2 Saturation ABG Base Excess ABG Hemoglobin ABG Oxyhemoglobin ABG Sodium ABG Potassium ABG Chloride ABG Glucose Oxyhemoglobin Carboxyhemoglobin Sodium Potassium Chloride Carbon Dioxide BUN Creatinine Glucose POC Glucose Hemoglobin A1c Lactic Acid Calcium Magnesium Ferritin 734.2 H Total Bilirubin AST ALT Alkaline Phosphatase Lactate Dehydrogenase 404 H Total Creatine Kinase C-Reactive Protein 2.80 H Total Protein Albumin Triglycerides Arterial Blood Glucose Arterial Blood Ionized Calcium Ur Specific [place] Vancomycin Trough Coronavirus (PCR) 11/22/20 11/22/20 11/22/20 05:12 05:39 11:50 WBC RBC Hgb Hct RDW Plt Count Lymph % (Auto) [place] % (Auto) Lymph # (Auto) [place] # (Auto) Baso # (Auto) Seg Neutrophils % Seg Neuts % (Manual) Lymphocytes % (Manual) Seg Neutrophils # Seg Neutrophils # Man Lymphocytes # (Manual) D-Dimer ABG pH POC ABG pCO2 POC ABG pO2 51.0 L ABG pO2 ABG HCO3 ABG O2 Saturation ABG Base Excess ABG Hemoglobin ABG Oxyhemoglobin ABG Sodium 131.2 L ABG Potassium 4.6 H ABG Chloride ABG Glucose 317 H Oxyhemoglobin Carboxyhemoglobin Sodium Potassium Chloride Carbon Dioxide BUN Creatinine Glucose POC Glucose 340 H 417 H Hemoglobin A1c Lactic Acid Calcium Magnesium Ferritin Total Bilirubin AST ALT Alkaline Phosphatase Lactate Dehydrogenase Total Creatine Kinase C-Reactive Protein Total Protein Albumin Triglycerides Arterial Blood Glucose 317 H Arterial Blood Ionized Calcium 4.4 L Ur Specific [place] Vancomycin Trough Coronavirus (PCR) 11/22/20 11/22/20 11/22/20 12:22 12:22 17:10 WBC 14.4 H RBC Hgb Hct RDW Plt Count Lymph % (Auto) [place] % (Auto) Lymph # (Auto) [place] # (Auto) Baso # (Auto) Seg Neutrophils % Seg Neuts % (Manual) 98.0 H Lymphocytes % (Manual) Seg Neutrophils # Seg Neutrophils # Man 14.1 H Lymphocytes # (Manual) 0.0 L D-Dimer ABG pH POC ABG pCO2 POC ABG pO2 ABG pO2 ABG HCO3 ABG O2 Saturation ABG Base Excess ABG Hemoglobin ABG Oxyhemoglobin ABG Sodium ABG Potassium ABG Chloride ABG Glucose Oxyhemoglobin Carboxyhemoglobin Sodium 132 L Potassium Chloride Carbon Dioxide BUN 36 H Creatinine 0.6 L Glucose 219 H POC Glucose 157 H Hemoglobin A1c Lactic Acid Calcium 7.2 L Magnesium Ferritin Total Bilirubin AST ALT Alkaline Phosphatase Lactate Dehydrogenase Total Creatine Kinase C-Reactive Protein Total Protein Albumin Triglycerides Arterial Blood Glucose Arterial Blood Ionized Calcium Ur Specific [place] Vancomycin Trough Coronavirus (PCR) 11/22/20 11/22/20 11/22/20 18:33 21:44 23:47 WBC RBC Hgb Hct RDW Plt Count Lymph % (Auto) [place] % (Auto) Lymph # (Auto) [place] # (Auto) Baso # (Auto) Seg Neutrophils % Seg Neuts % (Manual) Lymphocytes % (Manual) Seg Neutrophils # Seg Neutrophils # Man Lymphocytes # (Manual) D-Dimer ABG pH POC ABG pCO2 POC ABG pO2 60.8 L ABG pO2 ABG HCO3 ABG O2 Saturation ABG Base Excess ABG Hemoglobin ABG Oxyhemoglobin 88.1 L ABG Sodium 135.1 L ABG Potassium ABG Chloride ABG Glucose 141 H Oxyhemoglobin Carboxyhemoglobin Sodium Potassium Chloride Carbon Dioxide BUN Creatinine Glucose POC Glucose 117 H 123 H Hemoglobin A1c Lactic Acid Calcium Magnesium Ferritin Total Bilirubin AST ALT Alkaline Phosphatase Lactate Dehydrogenase Total Creatine Kinase C-Reactive Protein Total Protein Albumin Triglycerides Arterial Blood Glucose 141 H Arterial Blood Ionized Calcium Ur Specific [place] Vancomycin Trough Coronavirus (PCR) 11/23/20 11/23/20 11/23/20 04:00 04:00 05:23 WBC 14.4 H RBC Hgb Hct RDW Plt Count Lymph % (Auto) [place] % (Auto) Lymph # (Auto) [place] # (Auto) Baso # (Auto) Seg Neutrophils % Seg Neuts % (Manual) Lymphocytes % (Manual) Seg Neutrophils # Seg Neutrophils # Man Lymphocytes # (Manual) D-Dimer ABG pH POC ABG pCO2 POC ABG pO2 ABG pO2 ABG HCO3 ABG O2 Saturation ABG Base Excess ABG Hemoglobin ABG Oxyhemoglobin ABG Sodium ABG Potassium ABG Chloride ABG Glucose Oxyhemoglobin Carboxyhemoglobin Sodium 136 L Potassium Chloride Carbon Dioxide BUN 33 H Creatinine 0.6 L Glucose 115 H POC Glucose 173 H Hemoglobin A1c Lactic Acid Calcium 7.1 L Magnesium Ferritin Total Bilirubin AST 64 H ALT 75 H Alkaline Phosphatase Lactate Dehydrogenase Total Creatine Kinase C-Reactive Protein Total Protein 5.9 L D Albumin 2.4 L Triglycerides Arterial Blood Glucose Arterial Blood Ionized Calcium Ur Specific [place] Vancomycin Trough Coronavirus (PCR) 11/23/20 11/23/20 11/23/20 05:40 11:27 17:10 WBC RBC Hgb Hct RDW Plt Count Lymph % (Auto) [place] % (Auto) Lymph # (Auto) [place] # (Auto) Baso # (Auto) Seg Neutrophils % Seg Neuts % (Manual) Lymphocytes % (Manual) Seg Neutrophils # Seg Neutrophils # Man Lymphocytes # (Manual) D-Dimer ABG pH POC ABG pCO2 POC ABG pO2 56.5 L ABG pO2 ABG HCO3 ABG O2 Saturation ABG Base Excess ABG Hemoglobin ABG Oxyhemoglobin ABG Sodium ABG Potassium ABG Chloride 109.0 H ABG Glucose 114 H Oxyhemoglobin Carboxyhemoglobin Sodium Potassium Chloride Carbon Dioxide BUN Creatinine Glucose POC Glucose 114 H 136 H Hemoglobin A1c Lactic Acid Calcium Magnesium Ferritin Total Bilirubin AST ALT Alkaline Phosphatase Lactate Dehydrogenase Total Creatine Kinase C-Reactive Protein Total Protein Albumin Triglycerides Arterial Blood Glucose 114 H Arterial Blood Ionized Calcium 4.5 L Ur Specific [place] Vancomycin Trough Coronavirus (PCR) 11/24/20 11/24/20 11/24/20 05:14 05:14 05:14 WBC RBC Hgb Hct RDW Plt Count Lymph % (Auto) [place] % (Auto) Lymph # (Auto) [place] # (Auto) Baso # (Auto) Seg Neutrophils % Seg Neuts % (Manual) Lymphocytes % (Manual) Seg Neutrophils # Seg Neutrophils # Man Lymphocytes # (Manual) D-Dimer 1433.39 H ABG pH POC ABG pCO2 POC ABG pO2 ABG pO2 ABG HCO3 ABG O2 Saturation ABG Base Excess ABG Hemoglobin ABG Oxyhemoglobin ABG Sodium ABG Potassium ABG Chloride ABG Glucose Oxyhemoglobin Carboxyhemoglobin Sodium Potassium Chloride Carbon Dioxide BUN Creatinine Glucose POC Glucose Hemoglobin A1c Lactic Acid Calcium Magnesium Ferritin 997.5 H Total Bilirubin AST ALT Alkaline Phosphatase Lactate Dehydrogenase 463 H Total Creatine Kinase C-Reactive Protein Total Protein Albumin Triglycerides Arterial Blood Glucose Arterial Blood Ionized Calcium Ur Specific [place] Vancomycin Trough Coronavirus (PCR) 11/24/20 11/24/20 11/24/20 05:31 05:36 12:05 WBC RBC Hgb Hct RDW Plt Count Lymph % (Auto) [place] % (Auto) Lymph # (Auto) [place] # (Auto) Baso # (Auto) Seg Neutrophils % Seg Neuts % (Manual) Lymphocytes % (Manual) Seg Neutrophils # Seg Neutrophils # Man Lymphocytes # (Manual) D-Dimer ABG pH POC ABG pCO2 POC ABG pO2 57.2 L ABG pO2 ABG HCO3 ABG O2 Saturation ABG Base Excess ABG Hemoglobin ABG Oxyhemoglobin ABG Sodium ABG Potassium ABG Chloride ABG Glucose 180 H Oxyhemoglobin Carboxyhemoglobin Sodium Potassium Chloride Carbon Dioxide BUN Creatinine Glucose POC Glucose 199 H 143 H Hemoglobin A1c Lactic Acid Calcium Magnesium Ferritin Total Bilirubin AST ALT Alkaline Phosphatase Lactate Dehydrogenase Total Creatine Kinase C-Reactive Protein Total Protein Albumin Triglycerides Arterial Blood Glucose 180 H Arterial Blood Ionized Calcium 4.5 L Ur Specific [place] Vancomycin Trough Coronavirus (PCR) 11/24/20 11/24/20 11/24/20 12:14 17:47 23:47 WBC RBC Hgb Hct RDW Plt Count Lymph % (Auto) [place] % (Auto) Lymph # (Auto) [place] # (Auto) Baso # (Auto) Seg Neutrophils % Seg Neuts % (Manual) Lymphocytes % (Manual) Seg Neutrophils # Seg Neutrophils # Man Lymphocytes # (Manual) D-Dimer ABG pH 7.261 L POC ABG pCO2 59.7 H POC ABG pO2 75.7 L ABG pO2 ABG HCO3 ABG O2 Saturation ABG Base Excess ABG Hemoglobin ABG Oxyhemoglobin 92.5 L ABG Sodium ABG Potassium ABG Chloride 108.0 H ABG Glucose 150 H Oxyhemoglobin Carboxyhemoglobin Sodium Potassium Chloride Carbon Dioxide BUN Creatinine Glucose POC Glucose 223 H 179 H Hemoglobin A1c Lactic Acid Calcium Magnesium Ferritin Total Bilirubin AST ALT Alkaline Phosphatase Lactate Dehydrogenase Total Creatine Kinase C-Reactive Protein Total Protein Albumin Triglycerides Arterial Blood Glucose 150 H Arterial Blood Ionized Calcium Ur Specific [place] Vancomycin Trough Coronavirus (PCR) 11/25/20 11/25/20 11/25/20 03:29 05:07 05:15 WBC 13.9 H RBC Hgb Hct RDW Plt Count Lymph % (Auto) [place] % (Auto) Lymph # (Auto) [place] # (Auto) Baso # (Auto) Seg Neutrophils % Seg Neuts % (Manual) 97.0 H Lymphocytes % (Manual) Seg Neutrophils # Seg Neutrophils # Man 13.5 H Lymphocytes # (Manual) 0.0 L D-Dimer ABG pH 7.272 L POC ABG pCO2 69.0 H POC ABG pO2 132.9 H ABG pO2 ABG HCO3 ABG O2 Saturation ABG Base Excess ABG Hemoglobin ABG Oxyhemoglobin ABG Sodium ABG Potassium ABG Chloride ABG Glucose 174 H Oxyhemoglobin Carboxyhemoglobin Sodium Potassium Chloride Carbon Dioxide BUN Creatinine Glucose POC Glucose 168 H Hemoglobin A1c Lactic Acid Calcium Magnesium Ferritin Total Bilirubin AST ALT Alkaline Phosphatase Lactate Dehydrogenase Total Creatine Kinase C-Reactive Protein Total Protein Albumin Triglycerides Arterial Blood Glucose 174 H Arterial Blood Ionized Calcium Ur Specific [place] Vancomycin Trough Coronavirus (PCR) 11/25/20 11/25/20 11/25/20 05:15 11:25 17:35 WBC RBC Hgb Hct RDW Plt Count Lymph % (Auto) [place] % (Auto) Lymph # (Auto) [place] # (Auto) Baso # (Auto) Seg Neutrophils % Seg Neuts % (Manual) Lymphocytes % (Manual) Seg Neutrophils # Seg Neutrophils # Man Lymphocytes # (Manual) D-Dimer ABG pH POC ABG pCO2 POC ABG pO2 ABG pO2 ABG HCO3 ABG O2 Saturation ABG Base Excess ABG Hemoglobin ABG Oxyhemoglobin ABG Sodium ABG Potassium ABG Chloride ABG Glucose Oxyhemoglobin Carboxyhemoglobin Sodium Potassium Chloride Carbon Dioxide BUN 29 H Creatinine 0.5 L Glucose 161 H POC Glucose 224 H 228 H Hemoglobin A1c Lactic Acid Calcium 7.8 L Magnesium Ferritin Total Bilirubin AST 89 H ALT 129 H Alkaline Phosphatase Lactate Dehydrogenase Total Creatine Kinase C-Reactive Protein Total Protein 5.8 L Albumin 2.5 L Triglycerides Arterial Blood Glucose Arterial Blood Ionized Calcium Ur Specific [place] Vancomycin Trough Coronavirus (PCR) 11/25/20 11/25/20 11/26/20 20:45 23:28 04:00 WBC RBC Hgb Hct RDW Plt Count Lymph % (Auto) [place] % (Auto) Lymph # (Auto) [place] # (Auto) Baso # (Auto) Seg Neutrophils % Seg Neuts % (Manual) Lymphocytes % (Manual) Seg Neutrophils # Seg Neutrophils # Man Lymphocytes # (Manual) D-Dimer ABG pH POC ABG pCO2 POC ABG pO2 ABG pO2 ABG HCO3 ABG O2 Saturation ABG Base Excess ABG Hemoglobin ABG Oxyhemoglobin ABG Sodium ABG Potassium ABG Chloride ABG Glucose Oxyhemoglobin Carboxyhemoglobin Sodium Potassium Chloride Carbon Dioxide BUN Creatinine Glucose POC Glucose 177 H 243 H Hemoglobin A1c Lactic Acid Calcium Magnesium Ferritin 778.8 H Total Bilirubin AST ALT Alkaline Phosphatase Lactate Dehydrogenase Total Creatine Kinase C-Reactive Protein Total Protein Albumin Triglycerides Arterial Blood Glucose Arterial Blood Ionized Calcium Ur Specific [place] Vancomycin Trough Coronavirus (PCR) 11/26/20 11/26/20 11/26/20 04:00 05:34 06:04 WBC RBC Hgb Hct RDW Plt Count Lymph % (Auto) [place] % (Auto) Lymph # (Auto) [place] # (Auto) Baso # (Auto) Seg Neutrophils % Seg Neuts % (Manual) Lymphocytes % (Manual) Seg Neutrophils # Seg Neutrophils # Man Lymphocytes # (Manual) D-Dimer 926.11 H ABG pH POC ABG pCO2 POC ABG pO2 ABG pO2 ABG HCO3 ABG O2 Saturation ABG Base Excess ABG Hemoglobin ABG Oxyhemoglobin ABG Sodium ABG Potassium ABG Chloride ABG Glucose Oxyhemoglobin Carboxyhemoglobin Sodium Potassium Chloride Carbon Dioxide 39 H D BUN 30 H Creatinine 0.5 L Glucose 193 H POC Glucose 178 H Hemoglobin A1c Lactic Acid Calcium 7.7 L Magnesium Ferritin Total Bilirubin AST 65 H ALT 132 H Alkaline Phosphatase Lactate Dehydrogenase 288 H Total Creatine Kinase C-Reactive Protein 1.40 H Total Protein 5.7 L Albumin 2.4 L Triglycerides Arterial Blood Glucose Arterial Blood Ionized Calcium Ur Specific [place] Vancomycin Trough Coronavirus (PCR) 11/26/20 11/26/20 11/26/20 06:04 08:47 11:20 WBC 12.4 H RBC Hgb Hct RDW Plt Count Lymph % (Auto) [place] % (Auto) Lymph # (Auto) [place] # (Auto) Baso # (Auto) Seg Neutrophils % Seg Neuts % (Manual) 98.0 H Lymphocytes % (Manual) 1.0 L Seg Neutrophils # Seg Neutrophils # Man 12.2 H Lymphocytes # (Manual) 0.1 L D-Dimer ABG pH POC ABG pCO2 75.2 H POC ABG pO2 61.9 L ABG pO2 ABG HCO3 ABG O2 Saturation ABG Base Excess ABG Hemoglobin ABG Oxyhemoglobin 90.3 L ABG Sodium ABG Potassium ABG Chloride ABG Glucose 243 H Oxyhemoglobin Carboxyhemoglobin Sodium Potassium Chloride Carbon Dioxide BUN Creatinine Glucose POC Glucose 255 H Hemoglobin A1c Lactic Acid Calcium Magnesium Ferritin Total Bilirubin AST ALT Alkaline Phosphatase Lactate Dehydrogenase Total Creatine Kinase C-Reactive Protein Total Protein Albumin Triglycerides Arterial Blood Glucose 243 H Arterial Blood Ionized Calcium Ur Specific [place] Vancomycin Trough Coronavirus (PCR) 11/26/20 11/26/20 11/26/20 16:20 17:15 23:41 WBC RBC Hgb Hct RDW Plt Count Lymph % (Auto) [place] % (Auto) Lymph # (Auto) [place] # (Auto) Baso # (Auto) Seg Neutrophils % Seg Neuts % (Manual) Lymphocytes % (Manual) Seg Neutrophils # Seg Neutrophils # Man Lymphocytes # (Manual) D-Dimer ABG pH POC ABG pCO2 66.6 H POC ABG pO2 78.1 L ABG pO2 ABG HCO3 ABG O2 Saturation ABG Base Excess ABG Hemoglobin ABG Oxyhemoglobin ABG Sodium ABG Potassium ABG Chloride ABG Glucose 244 H Oxyhemoglobin Carboxyhemoglobin Sodium Potassium Chloride Carbon Dioxide BUN Creatinine Glucose POC Glucose 219 H 210 H Hemoglobin A1c Lactic Acid Calcium Magnesium Ferritin Total Bilirubin AST ALT Alkaline Phosphatase Lactate Dehydrogenase Total Creatine Kinase C-Reactive Protein Total Protein Albumin Triglycerides Arterial Blood Glucose 244 H Arterial Blood Ionized Calcium Ur Specific [place] Vancomycin Trough Coronavirus (PCR) 11/27/20 11/27/20 11/27/20 04:46 05:38 06:25 WBC 13.8 H RBC Hgb Hct RDW Plt Count Lymph % (Auto) 2.0 L [place] % (Auto) Lymph # (Auto) 0.3 L [place] # (Auto) Baso # (Auto) Seg Neutrophils % Seg Neuts % (Manual) 96.0 H Lymphocytes % (Manual) Seg Neutrophils # 12.7 H Seg Neutrophils # Man 13.2 H Lymphocytes # (Manual) 0.0 L D-Dimer ABG pH POC ABG pCO2 63.0 H POC ABG pO2 53.6 L ABG pO2 ABG HCO3 ABG O2 Saturation ABG Base Excess ABG Hemoglobin ABG Oxyhemoglobin 87.8 L ABG Sodium 115.4 L ABG Potassium ABG Chloride ABG Glucose 219 H Oxyhemoglobin Carboxyhemoglobin Sodium Potassium Chloride Carbon Dioxide BUN Creatinine Glucose POC Glucose 227 H Hemoglobin A1c Lactic Acid Calcium Magnesium Ferritin Total Bilirubin AST ALT Alkaline Phosphatase Lactate Dehydrogenase Total Creatine Kinase C-Reactive Protein Total Protein Albumin Triglycerides Arterial Blood Glucose 219 H Arterial Blood Ionized Calcium Ur Specific [place] Vancomycin Trough Coronavirus (PCR) 11/27/20 11/27/20 11/27/20 06:25 18:05 23:29 WBC RBC Hgb Hct RDW Plt Count Lymph % (Auto) [place] % (Auto) Lymph # (Auto) [place] # (Auto) Baso # (Auto) Seg Neutrophils % Seg Neuts % (Manual) Lymphocytes % (Manual) Seg Neutrophils # Seg Neutrophils # Man Lymphocytes # (Manual) D-Dimer ABG pH POC ABG pCO2 POC ABG pO2 ABG pO2 ABG HCO3 ABG O2 Saturation ABG Base Excess ABG Hemoglobin ABG Oxyhemoglobin ABG Sodium ABG Potassium ABG Chloride ABG Glucose Oxyhemoglobin Carboxyhemoglobin Sodium Potassium Chloride Carbon Dioxide 38 H BUN 34 H Creatinine 0.4 L Glucose 243 H POC Glucose 329 H 227 H Hemoglobin A1c Lactic Acid Calcium 7.9 L Magnesium Ferritin Total Bilirubin AST 50 H ALT 110 H Alkaline Phosphatase Lactate Dehydrogenase Total Creatine Kinase C-Reactive Protein Total Protein 6.1 L Albumin 2.4 L Triglycerides Arterial Blood Glucose Arterial Blood Ionized Calcium Ur Specific [place] Vancomycin Trough Coronavirus (PCR) 11/28/20 11/28/20 11/28/20 03:45 03:45 03:46 WBC 12.2 H RBC Hgb Hct RDW Plt Count Lymph % (Auto) [place] % (Auto) Lymph # (Auto) [place] # (Auto) Baso # (Auto) Seg Neutrophils % Seg Neuts % (Manual) 93.0 H Lymphocytes % (Manual) 2.0 L Seg Neutrophils # Seg Neutrophils # Man 11.3 H Lymphocytes # (Manual) 0.2 L D-Dimer ABG pH POC ABG pCO2 68.4 H POC ABG pO2 55.4 L ABG pO2 ABG HCO3 ABG O2 Saturation ABG Base Excess ABG Hemoglobin ABG Oxyhemoglobin ABG Sodium ABG Potassium ABG Chloride ABG Glucose 197 H Oxyhemoglobin Carboxyhemoglobin Sodium Potassium Chloride Carbon Dioxide 36 H BUN 37 H Creatinine 0.4 L Glucose 194 H POC Glucose Hemoglobin A1c Lactic Acid Calcium 8.1 L Magnesium Ferritin Total Bilirubin AST ALT 86 H Alkaline Phosphatase Lactate Dehydrogenase Total Creatine Kinase C-Reactive Protein Total Protein 6.0 L Albumin 2.3 L Triglycerides Arterial Blood Glucose 197 H Arterial Blood Ionized Calcium Ur Specific [place] Vancomycin Trough Coronavirus (PCR) 11/28/20 11/28/20 11/29/20 05:24 12:21 04:41 WBC RBC Hgb Hct RDW Plt Count Lymph % (Auto) [place] % (Auto) Lymph # (Auto) [place] # (Auto) Baso # (Auto) Seg Neutrophils % Seg Neuts % (Manual) Lymphocytes % (Manual) Seg Neutrophils # Seg Neutrophils # Man Lymphocytes # (Manual) D-Dimer ABG pH POC ABG pCO2 55.1 H POC ABG pO2 53.6 L ABG pO2 ABG HCO3 ABG O2 Saturation ABG Base Excess ABG Hemoglobin ABG Oxyhemoglobin 87.1 L ABG Sodium 131.2 L ABG Potassium ABG Chloride ABG Glucose 164 H Oxyhemoglobin Carboxyhemoglobin Sodium Potassium Chloride Carbon Dioxide BUN Creatinine Glucose POC Glucose 173 H 126 H Hemoglobin A1c Lactic Acid Calcium Magnesium Ferritin Total Bilirubin AST ALT Alkaline Phosphatase Lactate Dehydrogenase Total Creatine Kinase C-Reactive Protein Total Protein Albumin Triglycerides Arterial Blood Glucose 164 H Arterial Blood Ionized Calcium 4.4 L Ur Specific [place] Vancomycin Trough Coronavirus (PCR) 11/29/20 11/29/20 11/29/20 05:29 12:41 13:28 WBC RBC Hgb Hct RDW Plt Count Lymph % (Auto) [place] % (Auto) Lymph # (Auto) [place] # (Auto) Baso # (Auto) Seg Neutrophils % Seg Neuts % (Manual) Lymphocytes % (Manual) Seg Neutrophils # Seg Neutrophils # Man Lymphocytes # (Manual) D-Dimer ABG pH POC ABG pCO2 POC ABG pO2 ABG pO2 ABG HCO3 ABG O2 Saturation ABG Base Excess ABG Hemoglobin ABG Oxyhemoglobin ABG Sodium ABG Potassium ABG Chloride ABG Glucose Oxyhemoglobin Carboxyhemoglobin Sodium Potassium Chloride Carbon Dioxide 40 H BUN 32 H Creatinine 0.4 L Glucose 274 H POC Glucose 173 H 257 H Hemoglobin A1c Lactic Acid Calcium 7.2 L Magnesium Ferritin Total Bilirubin AST 57 H ALT 102 H Alkaline Phosphatase Lactate Dehydrogenase Total Creatine Kinase C-Reactive Protein Total Protein 5.7 L Albumin 2.1 L Triglycerides Arterial Blood Glucose Arterial Blood Ionized Calcium Ur Specific [place] Vancomycin Trough Coronavirus (PCR) 11/29/20 11/29/20 11/29/20 15:40 17:36 21:26 WBC RBC Hgb Hct RDW Plt Count Lymph % (Auto) [place] % (Auto) Lymph # (Auto) [place] # (Auto) Baso # (Auto) Seg Neutrophils % Seg Neuts % (Manual) Lymphocytes % (Manual) Seg Neutrophils # Seg Neutrophils # Man Lymphocytes # (Manual) D-Dimer ABG pH POC ABG pCO2 POC ABG pO2 ABG pO2 ABG HCO3 ABG O2 Saturation ABG Base Excess ABG Hemoglobin ABG Oxyhemoglobin ABG Sodium ABG Potassium ABG Chloride ABG Glucose Oxyhemoglobin Carboxyhemoglobin Sodium Potassium Chloride Carbon Dioxide BUN Creatinine Glucose POC Glucose 240 H 244 H Hemoglobin A1c Lactic Acid Calcium Magnesium Ferritin Total Bilirubin AST ALT Alkaline Phosphatase Lactate Dehydrogenase Total Creatine Kinase C-Reactive Protein Total Protein Albumin Triglycerides Arterial Blood Glucose Arterial Blood Ionized Calcium Ur Specific [place] Vancomycin Trough 4.0 L Coronavirus (PCR) 11/29/20 11/30/20 11/30/20 23:26 03:30 03:30 WBC RBC Hgb Hct RDW Plt Count Lymph % (Auto) [place] % (Auto) Lymph # (Auto) [place] # (Auto) Baso # (Auto) Seg Neutrophils % Seg Neuts % (Manual) 97.0 H Lymphocytes % (Manual) 1.0 L Seg Neutrophils # Seg Neutrophils # Man 9.9 H Lymphocytes # (Manual) 0.1 L D-Dimer ABG pH POC ABG pCO2 POC ABG pO2 ABG pO2 ABG HCO3 ABG O2 Saturation ABG Base Excess ABG Hemoglobin ABG Oxyhemoglobin ABG Sodium ABG Potassium ABG Chloride ABG Glucose Oxyhemoglobin Carboxyhemoglobin Sodium Potassium Chloride Carbon Dioxide 38 H BUN 34 H Creatinine 0.4 L Glucose 305 H POC Glucose 283 H Hemoglobin A1c Lactic Acid Calcium 7.6 L Magnesium Ferritin Total Bilirubin AST ALT 89 H Alkaline Phosphatase Lactate Dehydrogenase Total Creatine Kinase C-Reactive Protein Total Protein 6.0 L Albumin 2.3 L Triglycerides Arterial Blood Glucose Arterial Blood Ionized Calcium Ur Specific [place] Vancomycin Trough Coronavirus (PCR) 11/30/20 11/30/20 11/30/20 03:57 05:22 12:05 WBC RBC Hgb Hct RDW Plt Count Lymph % (Auto) [place] % (Auto) Lymph # (Auto) [place] # (Auto) Baso # (Auto) Seg Neutrophils % Seg Neuts % (Manual) Lymphocytes % (Manual) Seg Neutrophils # Seg Neutrophils # Man Lymphocytes # (Manual) D-Dimer ABG pH POC ABG pCO2 60.8 H POC ABG pO2 51.1 L ABG pO2 ABG HCO3 ABG O2 Saturation ABG Base Excess ABG Hemoglobin ABG Oxyhemoglobin 84.6 L ABG Sodium ABG Potassium ABG Chloride ABG Glucose 315 H Oxyhemoglobin Carboxyhemoglobin Sodium Potassium Chloride Carbon Dioxide BUN Creatinine Glucose POC Glucose 295 H 413 H Hemoglobin A1c Lactic Acid Calcium Magnesium Ferritin Total Bilirubin AST ALT Alkaline Phosphatase Lactate Dehydrogenase Total Creatine Kinase C-Reactive Protein Total Protein Albumin Triglycerides Arterial Blood Glucose 315 H Arterial Blood Ionized Calcium 4.5 L Ur Specific [place] Vancomycin Trough Coronavirus (PCR) 11/30/20 11/30/20 12/01/20 17:24 23:25 02:14 WBC RBC Hgb Hct RDW Plt Count Lymph % (Auto) [place] % (Auto) Lymph # (Auto) [place] # (Auto) Baso # (Auto) Seg Neutrophils % Seg Neuts % (Manual) Lymphocytes % (Manual) Seg Neutrophils # Seg Neutrophils # Man Lymphocytes # (Manual) D-Dimer ABG pH 7.278 L POC ABG pCO2 78.1 H POC ABG pO2 79.5 L ABG pO2 ABG HCO3 ABG O2 Saturation ABG Base Excess ABG Hemoglobin 11.6 L ABG Oxyhemoglobin ABG Sodium 134.5 L ABG Potassium 4.6 H ABG Chloride ABG Glucose 286 H Oxyhemoglobin Carboxyhemoglobin Sodium Potassium Chloride Carbon Dioxide BUN Creatinine Glucose POC Glucose 305 H 302 H Hemoglobin A1c Lactic Acid Calcium Magnesium Ferritin Total Bilirubin AST ALT Alkaline Phosphatase Lactate Dehydrogenase Total Creatine Kinase C-Reactive Protein Total Protein Albumin Triglycerides Arterial Blood Glucose 286 H Arterial Blood Ionized Calcium Ur Specific [place] Vancomycin Trough Coronavirus (PCR) 12/01/20 12/01/20 12/01/20 03:35 03:35 05:22 WBC 13.4 H RBC 3.54 L Hgb 10.4 L Hct 31.8 L RDW Plt Count Lymph % (Auto) [place] % (Auto) Lymph # (Auto) [place] # (Auto) Baso # (Auto) Seg Neutrophils % Seg Neuts % (Manual) 95.0 H Lymphocytes % (Manual) 3.0 L Seg Neutrophils # Seg Neutrophils # Man 12.7 H Lymphocytes # (Manual) 0.4 L D-Dimer ABG pH POC ABG pCO2 POC ABG pO2 ABG pO2 ABG HCO3 ABG O2 Saturation ABG Base Excess ABG Hemoglobin ABG Oxyhemoglobin ABG Sodium ABG Potassium ABG Chloride ABG Glucose Oxyhemoglobin Carboxyhemoglobin Sodium Potassium Chloride Carbon Dioxide 35 H BUN 34 H Creatinine 0.5 L Glucose 279 H POC Glucose 259 H Hemoglobin A1c Lactic Acid Calcium 7.6 L Magnesium Ferritin Total Bilirubin AST ALT 63 H Alkaline Phosphatase Lactate Dehydrogenase Total Creatine Kinase C-Reactive Protein Total Protein 4.8 L Albumin 2.1 L Triglycerides Arterial Blood Glucose Arterial Blood Ionized Calcium Ur Specific [place] Vancomycin Trough Coronavirus (PCR) 12/01/20 12/01/20 12/01/20 12:05 17:40 23:46 WBC RBC Hgb Hct RDW Plt Count Lymph % (Auto) [place] % (Auto) Lymph # (Auto) [place] # (Auto) Baso # (Auto) Seg Neutrophils % Seg Neuts % (Manual) Lymphocytes % (Manual) Seg Neutrophils # Seg Neutrophils # Man Lymphocytes # (Manual) D-Dimer ABG pH POC ABG pCO2 POC ABG pO2 ABG pO2 ABG HCO3 ABG O2 Saturation ABG Base Excess ABG Hemoglobin ABG Oxyhemoglobin ABG Sodium ABG Potassium ABG Chloride ABG Glucose Oxyhemoglobin Carboxyhemoglobin Sodium Potassium Chloride Carbon Dioxide BUN Creatinine Glucose POC Glucose 197 H 244 H 284 H Hemoglobin A1c Lactic Acid Calcium Magnesium Ferritin Total Bilirubin AST ALT Alkaline Phosphatase Lactate Dehydrogenase Total Creatine Kinase C-Reactive Protein Total Protein Albumin Triglycerides Arterial Blood Glucose Arterial Blood Ionized Calcium Ur Specific [place] Vancomycin Trough Coronavirus (PCR) 12/02/20 12/02/20 12/02/20 02:14 03:03 04:11 WBC 16.5 H RBC 3.55 L Hgb 10.5 L Hct 31.9 L RDW Plt Count Lymph % (Auto) [place] % (Auto) Lymph # (Auto) [place] # (Auto) Baso # (Auto) Seg Neutrophils % Seg Neuts % (Manual) 90.0 H Lymphocytes % (Manual) 3.0 L Seg Neutrophils # Seg Neutrophils # Man 14.9 H Lymphocytes # (Manual) 0.5 L D-Dimer ABG pH POC ABG pCO2 74.8 H POC ABG pO2 58.9 L ABG pO2 ABG HCO3 ABG O2 Saturation ABG Base Excess ABG Hemoglobin 11.5 L ABG Oxyhemoglobin ABG Sodium ABG Potassium ABG Chloride ABG Glucose 264 H Oxyhemoglobin Carboxyhemoglobin Sodium Potassium Chloride Carbon Dioxide 37 H BUN 30 H Creatinine 0.4 L Glucose 245 H POC Glucose Hemoglobin A1c Lactic Acid Calcium 7.5 L Magnesium Ferritin Total Bilirubin AST ALT Alkaline Phosphatase Lactate Dehydrogenase Total Creatine Kinase C-Reactive Protein Total Protein 5.2 L Albumin 2.2 L Triglycerides Arterial Blood Glucose 264 H Arterial Blood Ionized Calcium 4.5 L Ur Specific [place] Vancomycin Trough Coronavirus (PCR) 12/02/20 12/02/20 12/02/20 05:19 11:46 17:52 WBC RBC Hgb Hct RDW Plt Count Lymph % (Auto) [place] % (Auto) Lymph # (Auto) [place] # (Auto) Baso # (Auto) Seg Neutrophils % Seg Neuts % (Manual) Lymphocytes % (Manual) Seg Neutrophils # Seg Neutrophils # Man Lymphocytes # (Manual) D-Dimer ABG pH POC ABG pCO2 POC ABG pO2 ABG pO2 ABG HCO3 ABG O2 Saturation ABG Base Excess ABG Hemoglobin ABG Oxyhemoglobin ABG Sodium ABG Potassium ABG Chloride ABG Glucose Oxyhemoglobin Carboxyhemoglobin Sodium Potassium Chloride Carbon Dioxide BUN Creatinine Glucose POC Glucose 238 H 236 H 233 H Hemoglobin A1c Lactic Acid Calcium Magnesium Ferritin Total Bilirubin AST ALT Alkaline Phosphatase Lactate Dehydrogenase Total Creatine Kinase C-Reactive Protein Total Protein Albumin Triglycerides Arterial Blood Glucose Arterial Blood Ionized Calcium Ur Specific [place] Vancomycin Trough Coronavirus (PCR) 12/02/20 12/03/20 12/03/20 23:23 03:21 04:35 WBC RBC Hgb Hct RDW Plt Count 112 L Lymph % (Auto) [place] % (Auto) Lymph # (Auto) [place] # (Auto) Baso # (Auto) Seg Neutrophils % Seg Neuts % (Manual) 93.0 H Lymphocytes % (Manual) 4.0 L Seg Neutrophils # Seg Neutrophils # Man 9.1 H Lymphocytes # (Manual) 0.4 L D-Dimer ABG pH 7.299 L POC ABG pCO2 82.1 H POC ABG pO2 62.4 L ABG pO2 ABG HCO3 ABG O2 Saturation ABG Base Excess ABG Hemoglobin 11.5 L ABG Oxyhemoglobin 89.6 L ABG Sodium 134.3 L ABG Potassium ABG Chloride 95.0 L ABG Glucose 203 H Oxyhemoglobin Carboxyhemoglobin Sodium Potassium Chloride Carbon Dioxide BUN Creatinine Glucose POC Glucose 213 H Hemoglobin A1c Lactic Acid Calcium Magnesium Ferritin Total Bilirubin AST ALT Alkaline Phosphatase Lactate Dehydrogenase Total Creatine Kinase C-Reactive Protein Total Protein Albumin Triglycerides Arterial Blood Glucose 203 H Arterial Blood Ionized Calcium 4.5 L Ur Specific [place] Vancomycin Trough Coronavirus (PCR) 12/03/20 12/03/20 12/03/20 04:35 05:42 11:28 WBC RBC Hgb Hct RDW Plt Count Lymph % (Auto) [place] % (Auto) Lymph # (Auto) [place] # (Auto) Baso # (Auto) Seg Neutrophils % Seg Neuts % (Manual) Lymphocytes % (Manual) Seg Neutrophils # Seg Neutrophils # Man Lymphocytes # (Manual) D-Dimer ABG pH POC ABG pCO2 POC ABG pO2 ABG pO2 ABG HCO3 ABG O2 Saturation ABG Base Excess ABG Hemoglobin ABG Oxyhemoglobin ABG Sodium ABG Potassium ABG Chloride ABG Glucose Oxyhemoglobin Carboxyhemoglobin Sodium Potassium Chloride 97.8 L Carbon Dioxide 43 H* BUN 25 H Creatinine 0.3 L Glucose 214 H POC Glucose 193 H 211 H Hemoglobin A1c Lactic Acid Calcium 7.7 L Magnesium Ferritin Total Bilirubin AST ALT 63 H Alkaline Phosphatase 132 H Lactate Dehydrogenase Total Creatine Kinase C-Reactive Protein Total Protein 5.1 L Albumin 2.4 L Triglycerides Arterial Blood Glucose Arterial Blood Ionized Calcium Ur Specific [place] Vancomycin Trough Coronavirus (PCR) 12/03/20 12/03/20 12/04/20 17:45 23:57 00:11 WBC RBC Hgb Hct RDW Plt Count Lymph % (Auto) [place] % (Auto) Lymph # (Auto) [place] # (Auto) Baso # (Auto) Seg Neutrophils % Seg Neuts % (Manual) Lymphocytes % (Manual) Seg Neutrophils # Seg Neutrophils # Man Lymphocytes # (Manual) D-Dimer ABG pH POC ABG pCO2 POC ABG pO2 ABG pO2 ABG HCO3 ABG O2 Saturation ABG Base Excess ABG Hemoglobin ABG Oxyhemoglobin ABG Sodium ABG Potassium ABG Chloride ABG Glucose Oxyhemoglobin Carboxyhemoglobin Sodium Potassium Chloride Carbon Dioxide BUN Creatinine Glucose POC Glucose 231 H 240 H 239 H Hemoglobin A1c Lactic Acid Calcium Magnesium Ferritin Total Bilirubin AST ALT Alkaline Phosphatase Lactate Dehydrogenase Total Creatine Kinase C-Reactive Protein Total Protein Albumin Triglycerides Arterial Blood Glucose Arterial Blood Ionized Calcium Ur Specific [place] Vancomycin Trough Coronavirus (PCR) 12/04/20 12/04/20 12/04/20 04:00 05:20 05:34 WBC RBC Hgb Hct RDW Plt Count Lymph % (Auto) [place] % (Auto) Lymph # (Auto) [place] # (Auto) Baso # (Auto) Seg Neutrophils % Seg Neuts % (Manual) Lymphocytes % (Manual) Seg Neutrophils # Seg Neutrophils # Man Lymphocytes # (Manual) D-Dimer ABG pH POC ABG pCO2 84.4 H POC ABG pO2 68.0 L ABG pO2 ABG HCO3 ABG O2 Saturation ABG Base Excess ABG Hemoglobin 11.6 L ABG Oxyhemoglobin ABG Sodium 130.9 L ABG Potassium ABG Chloride 90.0 L ABG Glucose 244 H Oxyhemoglobin Carboxyhemoglobin Sodium Potassium Chloride Carbon Dioxide BUN Creatinine Glucose POC Glucose 241 H 213 H Hemoglobin A1c Lactic Acid Calcium Magnesium Ferritin Total Bilirubin AST ALT Alkaline Phosphatase Lactate Dehydrogenase Total Creatine Kinase C-Reactive Protein Total Protein Albumin Triglycerides Arterial Blood Glucose 244 H Arterial Blood Ionized Calcium 4.4 L Ur Specific [place] Vancomycin Trough Coronavirus (PCR) 12/04/20 12/04/20 12/04/20 11:36 16:53 23:32 WBC RBC Hgb Hct RDW Plt Count Lymph % (Auto) [place] % (Auto) Lymph # (Auto) [place] # (Auto) Baso # (Auto) Seg Neutrophils % Seg Neuts % (Manual) Lymphocytes % (Manual) Seg Neutrophils # Seg Neutrophils # Man Lymphocytes # (Manual) D-Dimer ABG pH POC ABG pCO2 POC ABG pO2 ABG pO2 ABG HCO3 ABG O2 Saturation ABG Base Excess ABG Hemoglobin ABG Oxyhemoglobin ABG Sodium ABG Potassium ABG Chloride ABG Glucose Oxyhemoglobin Carboxyhemoglobin Sodium Potassium Chloride Carbon Dioxide BUN Creatinine Glucose POC Glucose 196 H 127 H 230 H Hemoglobin A1c Lactic Acid Calcium Magnesium Ferritin Total Bilirubin AST ALT Alkaline Phosphatase Lactate Dehydrogenase Total Creatine Kinase C-Reactive Protein Total Protein Albumin Triglycerides Arterial Blood Glucose Arterial Blood Ionized Calcium Ur Specific [place] Vancomycin Trough Coronavirus (PCR) 12/04/20 12/05/20 12/05/20 Unknown 04:16 05:21 WBC RBC Hgb Hct RDW Plt Count Lymph % (Auto) [place] % (Auto) Lymph # (Auto) [place] # (Auto) Baso # (Auto) Seg Neutrophils % Seg Neuts % (Manual) Lymphocytes % (Manual) Seg Neutrophils # Seg Neutrophils # Man Lymphocytes # (Manual) D-Dimer ABG pH POC ABG pCO2 86.7 H POC ABG pO2 58.0 L ABG pO2 ABG HCO3 ABG O2 Saturation ABG Base Excess ABG Hemoglobin 11.6 L ABG Oxyhemoglobin 89 L ABG Sodium 130.1 L ABG Potassium 4.9 H ABG Chloride 89.0 L ABG Glucose 254 H Oxyhemoglobin Carboxyhemoglobin Sodium 136 L Potassium Chloride 90.0 L Carbon Dioxide 46 H* BUN 24 H Creatinine 0.3 L Glucose 226 H POC Glucose 213 H Hemoglobin A1c Lactic Acid Calcium 7.6 L Magnesium Ferritin Total Bilirubin AST 46 H ALT 78 H Alkaline Phosphatase 172 H Lactate Dehydrogenase Total Creatine Kinase C-Reactive Protein Total Protein 6.0 L Albumin 2.8 L Triglycerides 156 H Arterial Blood Glucose 254 H Arterial Blood Ionized Calcium 4.4 L Ur Specific [place] Vancomycin Trough Coronavirus (PCR) 12/05/20 12/05/20 12/05/20 11:22 17:26 23:38 WBC RBC Hgb Hct RDW Plt Count Lymph % (Auto) [place] % (Auto) Lymph # (Auto) [place] # (Auto) Baso # (Auto) Seg Neutrophils % Seg Neuts % (Manual) Lymphocytes % (Manual) Seg Neutrophils # Seg Neutrophils # Man Lymphocytes # (Manual) D-Dimer ABG pH POC ABG pCO2 POC ABG pO2 ABG pO2 ABG HCO3 ABG O2 Saturation ABG Base Excess ABG Hemoglobin ABG Oxyhemoglobin ABG Sodium ABG Potassium ABG Chloride ABG Glucose Oxyhemoglobin Carboxyhemoglobin Sodium Potassium Chloride Carbon Dioxide BUN Creatinine Glucose POC Glucose 212 H 157 H 204 H Hemoglobin A1c Lactic Acid Calcium Magnesium Ferritin Total Bilirubin AST ALT Alkaline Phosphatase Lactate Dehydrogenase Total Creatine Kinase C-Reactive Protein Total Protein Albumin Triglycerides Arterial Blood Glucose Arterial Blood Ionized Calcium Ur Specific [place] Vancomycin Trough Coronavirus (PCR) 12/06/20 12/06/20 12/06/20 04:31 04:31 05:12 WBC 17.0 H RBC 3.63 L Hgb 10.8 L D Hct 32.6 L D RDW Plt Count Lymph % (Auto) [place] % (Auto) Lymph # (Auto) [place] # (Auto) Baso # (Auto) Seg Neutrophils % Seg Neuts % (Manual) Lymphocytes % (Manual) Seg Neutrophils # Seg Neutrophils # Man Lymphocytes # (Manual) D-Dimer ABG pH POC ABG pCO2 85.9 H POC ABG pO2 57.6 L ABG pO2 ABG HCO3 ABG O2 Saturation ABG Base Excess ABG Hemoglobin ABG Oxyhemoglobin ABG Sodium 131.2 L ABG Potassium 4.8 H ABG Chloride 86.0 L ABG Glucose 200 H Oxyhemoglobin Carboxyhemoglobin Sodium 134 L Potassium 5.1 H Chloride 88.4 L Carbon Dioxide 47 H* BUN 23 H Creatinine 0.3 L Glucose 206 H POC Glucose Hemoglobin A1c Lactic Acid Calcium 8.3 L Magnesium Ferritin Total Bilirubin AST 48 H ALT 91 H Alkaline Phosphatase 140 H Lactate Dehydrogenase Total Creatine Kinase C-Reactive Protein Total Protein 5.7 L Albumin 2.6 L Triglycerides Arterial Blood Glucose 200 H Arterial Blood Ionized Calcium 4.4 L Ur Specific [place] Vancomycin Trough Coronavirus (PCR) 12/06/20 12/06/20 12/06/20 05:24 12:18 16:45 WBC RBC Hgb Hct RDW Plt Count Lymph % (Auto) [place] % (Auto) Lymph # (Auto) [place] # (Auto) Baso # (Auto) Seg Neutrophils % Seg Neuts % (Manual) Lymphocytes % (Manual) Seg Neutrophils # Seg Neutrophils # Man Lymphocytes # (Manual) D-Dimer ABG pH POC ABG pCO2 POC ABG pO2 ABG pO2 ABG HCO3 ABG O2 Saturation ABG Base Excess ABG Hemoglobin ABG Oxyhemoglobin ABG Sodium ABG Potassium ABG Chloride ABG Glucose Oxyhemoglobin Carboxyhemoglobin Sodium Potassium Chloride Carbon Dioxide BUN Creatinine Glucose POC Glucose 186 H 187 H 150 H Hemoglobin A1c Lactic Acid Calcium Magnesium Ferritin Total Bilirubin AST ALT Alkaline Phosphatase Lactate Dehydrogenase Total Creatine Kinase C-Reactive Protein Total Protein Albumin Triglycerides Arterial Blood Glucose Arterial Blood Ionized Calcium Ur Specific [place] Vancomycin Trough Coronavirus (PCR) 12/06/20 12/07/20 12/07/20 23:43 05:20 05:21 WBC RBC Hgb Hct RDW Plt Count Lymph % (Auto) [place] % (Auto) Lymph # (Auto) [place] # (Auto) Baso # (Auto) Seg Neutrophils % Seg Neuts % (Manual) Lymphocytes % (Manual) Seg Neutrophils # Seg Neutrophils # Man Lymphocytes # (Manual) D-Dimer ABG pH POC ABG pCO2 POC ABG pO2 ABG pO2 48.4 L ABG HCO3 50.8 H ABG O2 Saturation 86.2 L ABG Base Excess 22.4 H ABG Hemoglobin 11.0 L ABG Oxyhemoglobin ABG Sodium ABG Potassium ABG Chloride ABG Glucose Oxyhemoglobin 84.0 L Carboxyhemoglobin Sodium Potassium Chloride Carbon Dioxide BUN Creatinine Glucose POC Glucose 153 H 107 H Hemoglobin A1c Lactic Acid Calcium Magnesium Ferritin Total Bilirubin AST ALT Alkaline Phosphatase Lactate Dehydrogenase Total Creatine Kinase C-Reactive Protein Total Protein Albumin Triglycerides Arterial Blood Glucose Arterial Blood Ionized Calcium Ur Specific [place] Vancomycin Trough Coronavirus (PCR) 12/07/20 12/07/20 12/07/20 13:20 14:28 17:35 WBC RBC Hgb Hct RDW Plt Count Lymph % (Auto) [place] % (Auto) Lymph # (Auto) [place] # (Auto) Baso # (Auto) Seg Neutrophils % Seg Neuts % (Manual) Lymphocytes % (Manual) Seg Neutrophils # Seg Neutrophils # Man Lymphocytes # (Manual) D-Dimer ABG pH POC ABG pCO2 74.1 H POC ABG pO2 68.5 L ABG pO2 ABG HCO3 ABG O2 Saturation ABG Base Excess ABG Hemoglobin 10.7 L ABG Oxyhemoglobin 91.9 L ABG Sodium 132.2 L ABG Potassium 4.7 H ABG Chloride 88.0 L ABG Glucose 138 H Oxyhemoglobin Carboxyhemoglobin Sodium 134 L Potassium Chloride 87.4 L Carbon Dioxide 49 H* BUN Creatinine 0.2 L Glucose 132 H POC Glucose 176 H Hemoglobin A1c Lactic Acid Calcium 7.7 L Magnesium Ferritin Total Bilirubin AST ALT Alkaline Phosphatase Lactate Dehydrogenase Total Creatine Kinase C-Reactive Protein Total Protein Albumin Triglycerides Arterial Blood Glucose 138 H Arterial Blood Ionized Calcium 4.0 L Ur Specific [place] Vancomycin Trough Coronavirus (PCR) 12/07/20 12/08/20 12/08/20 23:44 04:12 05:29 WBC RBC Hgb Hct RDW Plt Count Lymph % (Auto) [place] % (Auto) Lymph # (Auto) [place] # (Auto) Baso # (Auto) Seg Neutrophils % Seg Neuts % (Manual) Lymphocytes % (Manual) Seg Neutrophils # Seg Neutrophils # Man Lymphocytes # (Manual) D-Dimer ABG pH POC ABG pCO2 POC ABG pO2 ABG pO2 69.7 L ABG HCO3 50.1 H ABG O2 Saturation ABG Base Excess 21.6 H ABG Hemoglobin 10.9 L ABG Oxyhemoglobin ABG Sodium ABG Potassium ABG Chloride ABG Glucose Oxyhemoglobin 93.2 L Carboxyhemoglobin Sodium Potassium Chloride Carbon Dioxide BUN Creatinine Glucose POC Glucose 143 H 143 H Hemoglobin A1c Lactic Acid Calcium Magnesium Ferritin Total Bilirubin AST ALT Alkaline Phosphatase Lactate Dehydrogenase Total Creatine Kinase C-Reactive Protein Total Protein Albumin Triglycerides Arterial Blood Glucose Arterial Blood Ionized Calcium Ur Specific [place] Vancomycin Trough Coronavirus (PCR) 12/08/20 12/08/20 12/09/20 06:10 06:10 04:24 WBC 12.0 H RBC 3.18 L Hgb 9.5 L Hct 28.9 L RDW Plt Count Lymph % (Auto) [place] % (Auto) Lymph # (Auto) [place] # (Auto) Baso # (Auto) Seg Neutrophils % Seg Neuts % (Manual) 95.0 H Lymphocytes % (Manual) 3.0 L Seg Neutrophils # Seg Neutrophils # Man 11.4 H Lymphocytes # (Manual) 0.4 L D-Dimer ABG pH POC ABG pCO2 76.2 H POC ABG pO2 52.8 L ABG pO2 ABG HCO3 ABG O2 Saturation ABG Base Excess ABG Hemoglobin 11.7 L ABG Oxyhemoglobin ABG Sodium 132.0 L ABG Potassium ABG Chloride 87.0 L ABG Glucose 118 H Oxyhemoglobin Carboxyhemoglobin Sodium 133 L Potassium Chloride 86.3 L Carbon Dioxide 53 H* BUN Creatinine 0.2 L Glucose 156 H POC Glucose Hemoglobin A1c Lactic Acid Calcium 7.6 L Magnesium Ferritin Total Bilirubin AST ALT Alkaline Phosphatase Lactate Dehydrogenase Total Creatine Kinase C-Reactive Protein Total Protein Albumin Triglycerides Arterial Blood Glucose 118 H Arterial Blood Ionized Calcium 4.2 L Ur Specific [place] Vancomycin Trough Coronavirus (PCR) 12/09/20 12/09/20 12/09/20 05:44 06:40 06:40 WBC 13.5 H RBC 3.28 L Hgb 9.7 L Hct 29.9 L RDW Plt Count Lymph % (Auto) [place] % (Auto) Lymph # (Auto) [place] # (Auto) Baso # (Auto) Seg Neutrophils % Seg Neuts % (Manual) Lymphocytes % (Manual) Seg Neutrophils # Seg Neutrophils # Man Lymphocytes # (Manual) D-Dimer ABG pH POC ABG pCO2 POC ABG pO2 ABG pO2 ABG HCO3 ABG O2 Saturation ABG Base Excess ABG Hemoglobin ABG Oxyhemoglobin ABG Sodium ABG Potassium ABG Chloride ABG Glucose Oxyhemoglobin Carboxyhemoglobin Sodium 135 L Potassium Chloride 89.5 L Carbon Dioxide 52 H* BUN Creatinine 0.3 L Glucose 114 H POC Glucose 117 H Hemoglobin A1c Lactic Acid Calcium 7.6 L Magnesium Ferritin Total Bilirubin AST ALT Alkaline Phosphatase Lactate Dehydrogenase Total Creatine Kinase C-Reactive Protein Total Protein Albumin Triglycerides Arterial Blood Glucose Arterial Blood Ionized Calcium Ur Specific [place] Vancomycin Trough Coronavirus (PCR) 12/09/20 12/09/20 12/10/20 16:42 21:11 04:28 WBC RBC Hgb Hct RDW Plt Count Lymph % (Auto) [place] % (Auto) Lymph # (Auto) [place] # (Auto) Baso # (Auto) Seg Neutrophils % Seg Neuts % (Manual) Lymphocytes % (Manual) Seg Neutrophils # Seg Neutrophils # Man Lymphocytes # (Manual) D-Dimer ABG pH POC ABG pCO2 72.5 H 69.4 H 76.9 H POC ABG pO2 50.4 L 80.6 L 60.2 L ABG pO2 ABG HCO3 ABG O2 Saturation ABG Base Excess ABG Hemoglobin 10.4 L 10.7 L 10 L ABG Oxyhemoglobin 84.3 L 89.7 L ABG Sodium 133.7 L 133.7 L 133.8 L ABG Potassium ABG Chloride 90.0 L 91.0 L 91.0 L ABG Glucose 116 H 96 H 57 L Oxyhemoglobin Carboxyhemoglobin 0.4 L Sodium Potassium Chloride Carbon Dioxide BUN Creatinine Glucose POC Glucose Hemoglobin A1c Lactic Acid Calcium Magnesium Ferritin Total Bilirubin AST ALT Alkaline Phosphatase Lactate Dehydrogenase Total Creatine Kinase C-Reactive Protein Total Protein Albumin Triglycerides Arterial Blood Glucose 116 H 96 H 57 L Arterial Blood Ionized Calcium 4.2 L 4.3 L 4.2 L Ur Specific [place] Vancomycin Trough Coronavirus (PCR) 12/10/20 12/10/20 12/10/20 05:09 05:41 11:50 WBC RBC Hgb Hct RDW Plt Count Lymph % (Auto) [place] % (Auto) Lymph # (Auto) [place] # (Auto) Baso # (Auto) Seg Neutrophils % Seg Neuts % (Manual) Lymphocytes % (Manual) Seg Neutrophils # Seg Neutrophils # Man Lymphocytes # (Manual) D-Dimer ABG pH POC ABG pCO2 POC ABG pO2 ABG pO2 ABG HCO3 ABG O2 Saturation ABG Base Excess ABG Hemoglobin ABG Oxyhemoglobin ABG Sodium ABG Potassium ABG Chloride ABG Glucose Oxyhemoglobin Carboxyhemoglobin Sodium Potassium Chloride Carbon Dioxide BUN Creatinine Glucose POC Glucose 41 L 138 H 106 H Hemoglobin A1c Lactic Acid Calcium Magnesium Ferritin Total Bilirubin AST ALT Alkaline Phosphatase Lactate Dehydrogenase Total Creatine Kinase C-Reactive Protein Total Protein Albumin Triglycerides Arterial Blood Glucose Arterial Blood Ionized Calcium Ur Specific [place] Vancomycin Trough Coronavirus (PCR) 12/10/20 12/10/20 12/11/20 17:34 23:25 04:06 WBC RBC Hgb Hct RDW Plt Count Lymph % (Auto) [place] % (Auto) Lymph # (Auto) [place] # (Auto) Baso # (Auto) Seg Neutrophils % Seg Neuts % (Manual) Lymphocytes % (Manual) Seg Neutrophils # Seg Neutrophils # Man Lymphocytes # (Manual) D-Dimer ABG pH POC ABG pCO2 71.0 H POC ABG pO2 56.8 L ABG pO2 ABG HCO3 ABG O2 Saturation ABG Base Excess ABG Hemoglobin 10.1 L ABG Oxyhemoglobin 88.5 L ABG Sodium 132.3 L ABG Potassium ABG Chloride 91.0 L ABG Glucose 168 H Oxyhemoglobin Carboxyhemoglobin Sodium Potassium Chloride Carbon Dioxide BUN Creatinine Glucose POC Glucose 121 H 167 H Hemoglobin A1c Lactic Acid Calcium Magnesium Ferritin Total Bilirubin AST ALT Alkaline Phosphatase Lactate Dehydrogenase Total Creatine Kinase C-Reactive Protein Total Protein Albumin Triglycerides Arterial Blood Glucose 168 H Arterial Blood Ionized Calcium 4.1 L Ur Specific [place] Vancomycin Trough Coronavirus (PCR) 12/11/20 12/11/20 12/11/20 05:21 11:44 15:40 WBC RBC Hgb Hct RDW Plt Count Lymph % (Auto) [place] % (Auto) Lymph # (Auto) [place] # (Auto) Baso # (Auto) Seg Neutrophils % Seg Neuts % (Manual) Lymphocytes % (Manual) Seg Neutrophils # Seg Neutrophils # Man Lymphocytes # (Manual) D-Dimer ABG pH 7.454 H POC ABG pCO2 58.6 H POC ABG pO2 50.7 L ABG pO2 ABG HCO3 ABG O2 Saturation ABG Base Excess ABG Hemoglobin 10.1 L ABG Oxyhemoglobin 86.2 L ABG Sodium 131.2 L ABG Potassium ABG Chloride 92.0 L ABG Glucose 197 H Oxyhemoglobin Carboxyhemoglobin Sodium Potassium Chloride Carbon Dioxide BUN Creatinine Glucose POC Glucose 149 H 202 H Hemoglobin A1c Lactic Acid Calcium Magnesium Ferritin Total Bilirubin AST ALT Alkaline Phosphatase Lactate Dehydrogenase Total Creatine Kinase C-Reactive Protein Total Protein Albumin Triglycerides Arterial Blood Glucose 197 H Arterial Blood Ionized Calcium 4.2 L Ur Specific [place] Vancomycin Trough Coronavirus (PCR) 12/11/20 12/11/20 12/12/20 17:09 23:16 05:09 WBC RBC Hgb Hct RDW Plt Count Lymph % (Auto) [place] % (Auto) Lymph # (Auto) [place] # (Auto) Baso # (Auto) Seg Neutrophils % Seg Neuts % (Manual) Lymphocytes % (Manual) Seg Neutrophils # Seg Neutrophils # Man Lymphocytes # (Manual) D-Dimer ABG pH POC ABG pCO2 63.1 H POC ABG pO2 62.6 L ABG pO2 ABG HCO3 ABG O2 Saturation ABG Base Excess ABG Hemoglobin 10.3 L ABG Oxyhemoglobin ABG Sodium 130.3 L ABG Potassium 4.6 H ABG Chloride 92.0 L ABG Glucose 215 H Oxyhemoglobin Carboxyhemoglobin Sodium Potassium Chloride Carbon Dioxide BUN Creatinine Glucose POC Glucose 181 H 192 H Hemoglobin A1c Lactic Acid Calcium Magnesium Ferritin Total Bilirubin AST ALT Alkaline Phosphatase Lactate Dehydrogenase Total Creatine Kinase C-Reactive Protein Total Protein Albumin Triglycerides Arterial Blood Glucose 215 H Arterial Blood Ionized Calcium 4.4 L Ur Specific [place] Vancomycin Trough Coronavirus (PCR) 12/12/20 12/12/20 12/12/20 05:16 05:47 11:41 WBC RBC Hgb Hct RDW Plt Count Lymph % (Auto) [place] % (Auto) Lymph # (Auto) [place] # (Auto) Baso # (Auto) Seg Neutrophils % Seg Neuts % (Manual) Lymphocytes % (Manual) Seg Neutrophils # Seg Neutrophils # Man Lymphocytes # (Manual) D-Dimer ABG pH POC ABG pCO2 POC ABG pO2 ABG pO2 ABG HCO3 ABG O2 Saturation ABG Base Excess ABG Hemoglobin ABG Oxyhemoglobin ABG Sodium ABG Potassium ABG Chloride ABG Glucose Oxyhemoglobin Carboxyhemoglobin Sodium Potassium Chloride Carbon Dioxide BUN Creatinine Glucose POC Glucose 208 H 218 H Hemoglobin A1c Lactic Acid Calcium Magnesium Ferritin Total Bilirubin AST ALT Alkaline Phosphatase Lactate Dehydrogenase Total Creatine Kinase C-Reactive Protein Total Protein Albumin Triglycerides 150 H Arterial Blood Glucose Arterial Blood Ionized Calcium Ur Specific [place] Vancomycin Trough Coronavirus (PCR) 12/12/20 12/12/20 12/13/20 17:05 23:18 03:36 WBC RBC Hgb Hct RDW Plt Count Lymph % (Auto) [place] % (Auto) Lymph # (Auto) [place] # (Auto) Baso # (Auto) Seg Neutrophils % Seg Neuts % (Manual) Lymphocytes % (Manual) Seg Neutrophils # Seg Neutrophils # Man Lymphocytes # (Manual) D-Dimer ABG pH POC ABG pCO2 61.5 H POC ABG pO2 77.6 L ABG pO2 ABG HCO3 ABG O2 Saturation ABG Base Excess ABG Hemoglobin 10.2 L ABG Oxyhemoglobin ABG Sodium 127.5 L ABG Potassium ABG Chloride 91.0 L ABG Glucose 232 H Oxyhemoglobin Carboxyhemoglobin Sodium Potassium Chloride Carbon Dioxide BUN Creatinine Glucose POC Glucose 187 H 176 H Hemoglobin A1c Lactic Acid Calcium Magnesium Ferritin Total Bilirubin AST ALT Alkaline Phosphatase Lactate Dehydrogenase Total Creatine Kinase C-Reactive Protein Total Protein Albumin Triglycerides Arterial Blood Glucose 232 H Arterial Blood Ionized Calcium 4.2 L Ur Specific [place] Vancomycin Trough Coronavirus (PCR) 12/13/20 12/13/20 12/13/20 05:13 10:00 11:30 WBC RBC 3.50 L Hgb 10.5 L Hct 31.9 L RDW Plt Count Lymph % (Auto) [place] % (Auto) Lymph # (Auto) [place] # (Auto) Baso # (Auto) Seg Neutrophils % Seg Neuts % (Manual) 96.0 H Lymphocytes % (Manual) Seg Neutrophils # Seg Neutrophils # Man 9.2 H Lymphocytes # (Manual) 0.0 L D-Dimer ABG pH POC ABG pCO2 POC ABG pO2 ABG pO2 ABG HCO3 ABG O2 Saturation ABG Base Excess ABG Hemoglobin ABG Oxyhemoglobin ABG Sodium ABG Potassium ABG Chloride ABG Glucose Oxyhemoglobin Carboxyhemoglobin Sodium Potassium Chloride Carbon Dioxide BUN Creatinine Glucose POC Glucose 204 H Hemoglobin A1c Lactic Acid Calcium Magnesium Ferritin Total Bilirubin AST ALT Alkaline Phosphatase Lactate Dehydrogenase Total Creatine Kinase C-Reactive Protein Total Protein Albumin Triglycerides Arterial Blood Glucose Arterial Blood Ionized Calcium Ur Specific [place] Vancomycin Trough Coronavirus (PCR) Positive A 12/13/20 12/13/20 12/13/20 11:30 12:01 18:04 WBC RBC Hgb Hct RDW Plt Count Lymph % (Auto) [place] % (Auto) Lymph # (Auto) [place] # (Auto) Baso # (Auto) Seg Neutrophils % Seg Neuts % (Manual) Lymphocytes % (Manual) Seg Neutrophils # Seg Neutrophils # Man Lymphocytes # (Manual) D-Dimer ABG pH POC ABG pCO2 POC ABG pO2 ABG pO2 ABG HCO3 ABG O2 Saturation ABG Base Excess ABG Hemoglobin ABG Oxyhemoglobin ABG Sodium ABG Potassium ABG Chloride ABG Glucose Oxyhemoglobin Carboxyhemoglobin Sodium 132 L Potassium Chloride 90.1 L Carbon Dioxide 41 H* D BUN Creatinine 0.2 L Glucose 249 H POC Glucose 224 H 172 H Hemoglobin A1c Lactic Acid Calcium 7.4 L Magnesium Ferritin Total Bilirubin AST ALT 61 H Alkaline Phosphatase Lactate Dehydrogenase Total Creatine Kinase C-Reactive Protein Total Protein 5.7 L Albumin 2.3 L Triglycerides Arterial Blood Glucose Arterial Blood Ionized Calcium Ur Specific [place] Vancomycin Trough Coronavirus (PCR) 12/13/20 12/14/20 12/14/20 23:37 04:05 04:35 WBC RBC 3.37 L Hgb 10.1 L Hct 30.7 L RDW 15.4 H Plt Count Lymph % (Auto) [place] % (Auto) Lymph # (Auto) [place] # (Auto) Baso # (Auto) Seg Neutrophils % Seg Neuts % (Manual) 93.0 H Lymphocytes % (Manual) 3.0 L Seg Neutrophils # Seg Neutrophils # Man 7.8 H Lymphocytes # (Manual) 0.3 L D-Dimer ABG pH POC ABG pCO2 72.2 H POC ABG pO2 61.5 L ABG pO2 ABG HCO3 ABG O2 Saturation ABG Base Excess ABG Hemoglobin ABG Oxyhemoglobin 89.9 L ABG Sodium 131.4 L ABG Potassium ABG Chloride 91.0 L ABG Glucose 205 H Oxyhemoglobin Carboxyhemoglobin Sodium Potassium Chloride Carbon Dioxide BUN Creatinine Glucose POC Glucose 200 H Hemoglobin A1c Lactic Acid Calcium Magnesium Ferritin Total Bilirubin AST ALT Alkaline Phosphatase Lactate Dehydrogenase Total Creatine Kinase C-Reactive Protein Total Protein Albumin Triglycerides Arterial Blood Glucose 205 H Arterial Blood Ionized Calcium 4.3 L Ur Specific [place] Vancomycin Trough Coronavirus (PCR) 12/14/20 12/14/20 12/14/20 04:35 05:12 11:31 WBC RBC Hgb Hct RDW Plt Count Lymph % (Auto) [place] % (Auto) Lymph # (Auto) [place] # (Auto) Baso # (Auto) Seg Neutrophils % Seg Neuts % (Manual) Lymphocytes % (Manual) Seg Neutrophils # Seg Neutrophils # Man Lymphocytes # (Manual) D-Dimer ABG pH POC ABG pCO2 POC ABG pO2 ABG pO2 ABG HCO3 ABG O2 Saturation ABG Base Excess ABG Hemoglobin ABG Oxyhemoglobin ABG Sodium ABG Potassium ABG Chloride ABG Glucose Oxyhemoglobin Carboxyhemoglobin Sodium 135 L Potassium Chloride 92.5 L Carbon Dioxide 38 H BUN Creatinine 0.2 L Glucose 184 H POC Glucose 176 H 212 H Hemoglobin A1c Lactic Acid Calcium 7.7 L Magnesium Ferritin Total Bilirubin AST ALT Alkaline Phosphatase Lactate Dehydrogenase Total Creatine Kinase C-Reactive Protein Total Protein Albumin Triglycerides Arterial Blood Glucose Arterial Blood Ionized Calcium Ur Specific [place] Vancomycin Trough Coronavirus (PCR) 12/14/20 12/14/20 12/15/20 17:30 23:30 03:19 WBC RBC Hgb Hct RDW Plt Count Lymph % (Auto) [place] % (Auto) Lymph # (Auto) [place] # (Auto) Baso # (Auto) Seg Neutrophils % Seg Neuts % (Manual) Lymphocytes % (Manual) Seg Neutrophils # Seg Neutrophils # Man Lymphocytes # (Manual) D-Dimer ABG pH POC ABG pCO2 62.0 H POC ABG pO2 66.0 L ABG pO2 ABG HCO3 ABG O2 Saturation ABG Base Excess ABG Hemoglobin 10.3 L ABG Oxyhemoglobin ABG Sodium 130.5 L ABG Potassium ABG Chloride 91.0 L ABG Glucose 166 H Oxyhemoglobin Carboxyhemoglobin Sodium Potassium Chloride Carbon Dioxide BUN Creatinine Glucose POC Glucose 222 H 176 H Hemoglobin A1c Lactic Acid Calcium Magnesium Ferritin Total Bilirubin AST ALT Alkaline Phosphatase Lactate Dehydrogenase Total Creatine Kinase C-Reactive Protein Total Protein Albumin Triglycerides Arterial Blood Glucose 166 H Arterial Blood Ionized Calcium 4.4 L Ur Specific [place] Vancomycin Trough Coronavirus (PCR) 12/15/20 12/15/20 12/15/20 05:24 11:39 17:30 WBC RBC Hgb Hct RDW Plt Count Lymph % (Auto) [place] % (Auto) Lymph # (Auto) [place] # (Auto) Baso # (Auto) Seg Neutrophils % Seg Neuts % (Manual) Lymphocytes % (Manual) Seg Neutrophils # Seg Neutrophils # Man Lymphocytes # (Manual) D-Dimer ABG pH POC ABG pCO2 POC ABG pO2 ABG pO2 ABG HCO3 ABG O2 Saturation ABG Base Excess ABG Hemoglobin ABG Oxyhemoglobin ABG Sodium ABG Potassium ABG Chloride ABG Glucose Oxyhemoglobin Carboxyhemoglobin Sodium Potassium Chloride Carbon Dioxide BUN Creatinine Glucose POC Glucose 160 H 140 H 246 H Hemoglobin A1c Lactic Acid Calcium Magnesium Ferritin Total Bilirubin AST ALT Alkaline Phosphatase Lactate Dehydrogenase Total Creatine Kinase C-Reactive Protein Total Protein Albumin Triglycerides Arterial Blood Glucose Arterial Blood Ionized Calcium Ur Specific [place] Vancomycin Trough Coronavirus (PCR) 12/15/20 12/16/20 12/16/20 23:42 03:54 04:46 WBC RBC 3.48 L Hgb 10.6 L Hct 31.5 L RDW 15.8 H Plt Count Lymph % (Auto) [place] % (Auto) Lymph # (Auto) [place] # (Auto) Baso # (Auto) Seg Neutrophils % Seg Neuts % (Manual) Lymphocytes % (Manual) Seg Neutrophils # Seg Neutrophils # Man Lymphocytes # (Manual) D-Dimer ABG pH POC ABG pCO2 63.6 H POC ABG pO2 55.0 L ABG pO2 ABG HCO3 ABG O2 Saturation ABG Base Excess ABG Hemoglobin 11.1 L ABG Oxyhemoglobin 87.3 L ABG Sodium 130.7 L ABG Potassium ABG Chloride 89.0 L ABG Glucose 211 H Oxyhemoglobin Carboxyhemoglobin Sodium Potassium Chloride Carbon Dioxide BUN Creatinine Glucose POC Glucose 139 H Hemoglobin A1c Lactic Acid Calcium Magnesium Ferritin Total Bilirubin AST ALT Alkaline Phosphatase Lactate Dehydrogenase Total Creatine Kinase C-Reactive Protein Total Protein Albumin Triglycerides Arterial Blood Glucose 211 H Arterial Blood Ionized Calcium 4.3 L Ur Specific [place] Vancomycin Trough Coronavirus (PCR) 12/16/20 12/16/20 12/16/20 04:46 05:34 11:40 WBC RBC Hgb Hct RDW Plt Count Lymph % (Auto) [place] % (Auto) Lymph # (Auto) [place] # (Auto) Baso # (Auto) Seg Neutrophils % Seg Neuts % (Manual) Lymphocytes % (Manual) Seg Neutrophils # Seg Neutrophils # Man Lymphocytes # (Manual) D-Dimer ABG pH POC ABG pCO2 POC ABG pO2 ABG pO2 ABG HCO3 ABG O2 Saturation ABG Base Excess ABG Hemoglobin ABG Oxyhemoglobin ABG Sodium ABG Potassium ABG Chloride ABG Glucose Oxyhemoglobin Carboxyhemoglobin Sodium 134 L Potassium Chloride 89.7 L Carbon Dioxide 38 H BUN Creatinine < 0.2 L Glucose 203 H POC Glucose 155 H 239 H Hemoglobin A1c Lactic Acid Calcium 7.5 L Magnesium Ferritin Total Bilirubin AST ALT Alkaline Phosphatase Lactate Dehydrogenase Total Creatine Kinase C-Reactive Protein Total Protein Albumin Triglycerides Arterial Blood Glucose Arterial Blood Ionized Calcium Ur Specific [place] Vancomycin Trough Coronavirus (PCR) 12/16/20 12/16/20 12/17/20 17:42 23:45 03:59 WBC RBC Hgb Hct RDW Plt Count Lymph % (Auto) [place] % (Auto) Lymph # (Auto) [place] # (Auto) Baso # (Auto) Seg Neutrophils % Seg Neuts % (Manual) Lymphocytes % (Manual) Seg Neutrophils # Seg Neutrophils # Man Lymphocytes # (Manual) D-Dimer ABG pH POC ABG pCO2 71.9 H POC ABG pO2 57.5 L ABG pO2 ABG HCO3 ABG O2 Saturation ABG Base Excess ABG Hemoglobin 10.8 L ABG Oxyhemoglobin 87.7 L ABG Sodium 131.5 L ABG Potassium ABG Chloride 90.0 L ABG Glucose 199 H Oxyhemoglobin Carboxyhemoglobin Sodium Potassium Chloride Carbon Dioxide BUN Creatinine Glucose POC Glucose 228 H 187 H Hemoglobin A1c Lactic Acid Calcium Magnesium Ferritin Total Bilirubin AST ALT Alkaline Phosphatase Lactate Dehydrogenase Total Creatine Kinase C-Reactive Protein Total Protein Albumin Triglycerides Arterial Blood Glucose 199 H Arterial Blood Ionized Calcium 4.4 L Ur Specific [place] Vancomycin Trough Coronavirus (PCR) 12/17/20 12/17/20 12/17/20 05:35 11:55 17:25 WBC RBC Hgb Hct RDW Plt Count Lymph % (Auto) [place] % (Auto) Lymph # (Auto) [place] # (Auto) Baso # (Auto) Seg Neutrophils % Seg Neuts % (Manual) Lymphocytes % (Manual) Seg Neutrophils # Seg Neutrophils # Man Lymphocytes # (Manual) D-Dimer ABG pH POC ABG pCO2 POC ABG pO2 ABG pO2 ABG HCO3 ABG O2 Saturation ABG Base Excess ABG Hemoglobin ABG Oxyhemoglobin ABG Sodium ABG Potassium ABG Chloride ABG Glucose Oxyhemoglobin Carboxyhemoglobin Sodium 134 L Potassium Chloride 89.6 L Carbon Dioxide 44 H* BUN Creatinine 0.2 L Glucose 280 H POC Glucose 159 H 181 H Hemoglobin A1c Lactic Acid Calcium 8.0 L Magnesium 1.60 L Ferritin Total Bilirubin AST ALT Alkaline Phosphatase Lactate Dehydrogenase Total Creatine Kinase C-Reactive Protein Total Protein 6.2 L Albumin 2.1 L Triglycerides Arterial Blood Glucose Arterial Blood Ionized Calcium Ur Specific [place] Vancomycin Trough Coronavirus (PCR) 12/17/20 12/17/20 12/18/20 17:25 17:51 00:12 WBC RBC Hgb Hct RDW Plt Count Lymph % (Auto) [place] % (Auto) Lymph # (Auto) [place] # (Auto) Baso # (Auto) Seg Neutrophils % Seg Neuts % (Manual) Lymphocytes % (Manual) Seg Neutrophils # Seg Neutrophils # Man Lymphocytes # (Manual) D-Dimer ABG pH POC ABG pCO2 POC ABG pO2 ABG pO2 ABG HCO3 ABG O2 Saturation ABG Base Excess ABG Hemoglobin ABG Oxyhemoglobin ABG Sodium ABG Potassium ABG Chloride ABG Glucose Oxyhemoglobin Carboxyhemoglobin Sodium Potassium Chloride Carbon Dioxide BUN Creatinine Glucose POC Glucose 260 H 197 H Hemoglobin A1c Lactic Acid Calcium Magnesium Ferritin Total Bilirubin AST ALT Alkaline Phosphatase Lactate Dehydrogenase Total Creatine Kinase 47 L C-Reactive Protein Total Protein Albumin Triglycerides Arterial Blood Glucose Arterial Blood Ionized Calcium Ur Specific [place] Vancomycin Trough Coronavirus (PCR) 12/18/20 12/18/20 12/18/20 03:56 04:32 04:32 WBC RBC 2.88 L Hgb 8.6 L Hct 26.0 L RDW 15.6 H Plt Count Lymph % (Auto) [place] % (Auto) Lymph # (Auto) [place] # (Auto) Baso # (Auto) Seg Neutrophils % Seg Neuts % (Manual) Lymphocytes % (Manual) Seg Neutrophils # Seg Neutrophils # Man Lymphocytes # (Manual) D-Dimer ABG pH POC ABG pCO2 78.0 H POC ABG pO2 52.3 L ABG pO2 ABG HCO3 ABG O2 Saturation ABG Base Excess ABG Hemoglobin 11.7 L ABG Oxyhemoglobin 84.9 L ABG Sodium 131.6 L ABG Potassium ABG Chloride 89.0 L ABG Glucose 191 H Oxyhemoglobin Carboxyhemoglobin Sodium 134 L Potassium Chloride 89.5 L Carbon Dioxide 43 H* BUN Creatinine < 0.2 L Glucose 182 H POC Glucose Hemoglobin A1c Lactic Acid Calcium 8.1 L Magnesium Ferritin Total Bilirubin AST ALT Alkaline Phosphatase Lactate Dehydrogenase Total Creatine Kinase C-Reactive Protein Total Protein Albumin Triglycerides Arterial Blood Glucose 191 H Arterial Blood Ionized Calcium 4.4 L Ur Specific [place] Vancomycin Trough Coronavirus (PCR)
[2020-12-18 09:08] LABS: Blood Urea Nitrogen 11 mg/dL (9-20); Calcium 7.5 mg/dL (8.4-10.2); Hemolysis Index 6
[2020-12-18 09:29] LABS: BUN/Creatinine Ratio 55
[2020-12-18] MEDS: FAMOTIDINE 20 MG TAB PO SCH ×2 (10:29→22:12)
[2020-12-18] MEDS: SENNOSIDES/DOCUSATE SODIUM 8.6/50 MG TAB PO SCH ×2 (10:29→22:11)
[2020-12-18] MEDS: methylPREDNISolone Sod Succinate 40 MG/1 ML INJ IV SCH (10:30)
--- NOTE | 2020-12-18 10:38 | Progress Note ---
Assessment and Plan Cultures: SARS CoV-2 PCR: positive Blood culture: No growth 11/21/2020 tracheal aspirate culture: MRSA 12/09/2020 blood culture: no growth 12/09/2020 sputum culture: Klebsiella 12/17/2020 blood culture: In process A/P: 59-year-old male with: #Shock: on pressors. Febrile, restarted abx on 12/17/2020. #Bilateral pneumonia: secondary to COVID-19. Completed abx, remdesivir. #Klebsiella on ET aspirate culture: ?colonization v/s true disease, difficult to differentiate. Will treat given development of low-grade temperatures and white count. #Right-sided pneumothorax and pneumomediastinum: s/p chest tube. #Acute hypoxic respiratory failure: Remains on the vent. #Elevated d-dimer: DVT scan negative. Was unable to get CTA Chest due to patients unstable clinical status #Transaminitis: secondary to COVID-19. Recs: -continue IV Cefepime + Vancomycin, D2 -f/u new cultures -steroids per pulmonary -very poor prognosis Dayday Driscoll MD, FACP [facility] ([facility] O: [phone] F: [phone] Subjective Date of service: 12/18/20 Principal diagnosis: COVID-19 Interval history: Febrile again yesterday. Remains on the vent. Objective - Exam Narrative Exam: Physical Exam (reviewed in chart to minimize risk of transmission) Constitutional: deferred Head, Ears, Nose: deferred Eyes: deferred Neck: deferred Oral: deferred Cardiovascular: deferred Respiratory: deferred GI: deferred Musculoskeletal: deferred Skin: deferred Hem/Lymphatic: deferred Psych: deferred Neurological: deferred - Constitutional Vitals: Vital Signs Temp Pulse Resp BP Pulse Ox 99.2 F 90 30 H 84/50 95 12/18/20 07:51 12/18/20 09:15 12/18/20 09:00 12/18/20 09:15 12/18/20 09:15 Temperature -Last 24 Hours Temperature 99.2 F Temperature 98.7 F Temperature 98.8 F Temperature 98.8 F Temperature 101.0 F Temperature 100.2 F Temperature 99.4 F - Labs CBC & Chem 7: 12/18/20 04:32 12/18/20 08:27 Labs: Abnormal lab results 12/17/20 12/17/20 12/17/20 Range/Units 11:55 17:25 17:25 RBC (3.65-5.03) M/mm3 Hgb (11.8-15.2) gm/dl Hct (35.5-45.6) % RDW (13.2-15.2) % POC ABG pCO2 (32.0-48.0) mmHg POC ABG pO2 (83-108) mmHg ABG Hemoglobin (12.0-17.5) ABG Oxyhemoglobin (94-98) ABG Sodium (136.0-145.0) mmol/L ABG Chloride (98-107) mmol/L ABG Glucose (65-95) mg/dL Sodium 134 L (137-145) mmol/L Chloride 89.6 L (98-107) mmol/L Carbon Dioxide 44 H* (22-30) mmol/L Creatinine 0.2 L (0.8-1.3) mg/dL Glucose 280 H (75-100) mg/dL POC Glucose 181 H (70-105) mg/dL Calcium 8.0 L (8.4-10.2) mg/dL Magnesium 1.60 L (1.7-2.3) mg/dL Total Creatine Kinase 47 L (55-170) units/L Total Protein 6.2 L (6.3-8.2) g/dL Albumin 2.1 L (3.9-5) g/dL Arterial Blood Glucose (65-95) mg/dL Arterial Blood Ionized Calcium (4.6-5.3) mg/dL 12/17/20 12/18/20 12/18/20 Range/Units 17:51 00:12 03:56 RBC (3.65-5.03) M/mm3 Hgb (11.8-15.2) gm/dl Hct (35.5-45.6) % RDW (13.2-15.2) % POC ABG pCO2 78.0 H (32.0-48.0) mmHg POC ABG pO2 52.3 L (83-108) mmHg ABG Hemoglobin 11.7 L (12.0-17.5) ABG Oxyhemoglobin 84.9 L (94-98) ABG Sodium 131.6 L (136.0-145.0) mmol/L ABG Chloride 89.0 L (98-107) mmol/L ABG Glucose 191 H (65-95) mg/dL Sodium (137-145) mmol/L Chloride (98-107) mmol/L Carbon Dioxide (22-30) mmol/L Creatinine (0.8-1.3) mg/dL Glucose (75-100) mg/dL POC Glucose 260 H 197 H (70-105) mg/dL Calcium (8.4-10.2) mg/dL Magnesium (1.7-2.3) mg/dL Total Creatine Kinase (55-170) units/L Total Protein (6.3-8.2) g/dL Albumin (3.9-5) g/dL Arterial Blood Glucose 191 H (65-95) mg/dL Arterial Blood Ionized Calcium 4.4 L (4.6-5.3) mg/dL 12/18/20 12/18/20 12/18/20 Range/Units 04:32 04:32 08:27 RBC 2.88 L (3.65-5.03) M/mm3 Hgb 8.6 L (11.8-15.2) gm/dl Hct 26.0 L (35.5-45.6) % RDW 15.6 H (13.2-15.2) % POC ABG pCO2 (32.0-48.0) mmHg POC ABG pO2 (83-108) mmHg ABG Hemoglobin (12.0-17.5) ABG Oxyhemoglobin (94-98) ABG Sodium (136.0-145.0) mmol/L ABG Chloride (98-107) mmol/L ABG Glucose (65-95) mg/dL Sodium 134 L 131 L (137-145) mmol/L Chloride 89.5 L 89.0 L (98-107) mmol/L Carbon Dioxide 43 H* 41 H* (22-30) mmol/L Creatinine < 0.2 L < 0.2 L (0.8-1.3) mg/dL Glucose 182 H 176 H (75-100) mg/dL POC Glucose (70-105) mg/dL Calcium 8.1 L 7.5 L (8.4-10.2) mg/dL Magnesium (1.7-2.3) mg/dL Total Creatine Kinase (55-170) units/L Total Protein (6.3-8.2) g/dL Albumin (3.9-5) g/dL Arterial Blood Glucose (65-95) mg/dL Arterial Blood Ionized Calcium (4.6-5.3) mg/dL
[2020-12-18] MEDS: fentaNYL 100 MCG/2 ML INJ IV PRN ×2 (12:32→13:16)
[2020-12-18] MEDS: NORepinephrine/NS 4 MG-250 ML 4 MG/250 ML BAG IV SCH ×2 (12:34→22:21)
[2020-12-18] MEDS: MIDAZOLAM 100 MG in SODIUM CHLORIDE 0.9% 80 ML IV SCH (13:25)
--- NOTE | 2020-12-18 17:07 | Progress Note ---
<LISSETH ALSTONRigo - Last Filed: 12/18/20 17:01> Assessment and Plan Assessment and plan: Septic Shock secondary to pneumonia: S/p antibiotics, 11/21 tracheal aspirate with MRSA, / blood cultures x2 with no growth to date, 12/09 sputum culture with Klebsiella pneumonia, antibiotic therapy, infectious disease consulted, appreciate recommendations COVID-19 pneumonia: 12/06 Covid PCR positive, 12/13 Covid PCR positive, infectious disease and pulmonology consulted (appreciate recommendations) contact/droplet precautions, s/p remdesivir Acute hypoxic hypercapnic respiratory failure: S/p intubation on mechanical ventilation, CCM following, weaning as tolerated Bilateral pneumothorax: S/p bilateral chest tube placement with surgery, patient still requires high PEEP Pneumomediastinum with subcutaneous emphysema: S/p chest tube placement by surgery Elevated D-dimer: Bilateral lower extremity Dopplers are negative, unable to obtain CTA due to unstable clinical status Transaminitis: Secondary to COVID-19 Klebsiella pneumonia: Noted on sputum culture from 11/21, per infectious disease: Questionable colonization versus true disease, antibiotic therapy (cefepime deescalated to ceftriaxone) Type 2 diabetes mellitus: Accu-Cheks AC at bedtime, SSI, long-acting insulin DVT/GI prophylaxis: SCDs to bilateral lower extremities while in bed, Lovenox subcu, PPI Disposition: ICU History Interval history: 59-year-old female who is smoker who presented to [facility] with shortness of breath cough fever weakness for 1 to 2 days prior to arrival. Per EMS the patient was severely hypoxic with saturations in the low 80s. With all oxygen and nonrebreather came down to low 90s. ID, pulmonary, CCM were consulted. Septic Shock COVID-19 pneumonia Acute hypoxic hypercapnic respiratory failure Bilateral pneumothorax Pneumomediastinum with subcutaneous emphysema Elevated D-dimer Transaminitis Klebsiella pneumonia Type 2 diabetes mellitus 2: Patient continues on BiPAP throughout the night. Labs are remarkable for hypoxia with improving renal function but lactic acidosis without fever. CTA has been ordered to rule out pulmonary embolism. I agree with increasing enoxaparin to twice daily full dose for empiric treatment of pulmonary embolism. Will obtain ID consultation on further evaluation for possible underlying pneumonia versus COVID-19. We will also obtain echocardiogram for evaluation. Will discontinue fluids at this time. 2; Continue supportive care, Patient remains with very guarded prognosis, remains on BiPAP, continues on Remdesivir, and steroids. Will continue anticoagulation, unable to get CTA Chest due to patients unstable clinical status. Will adjust insulin for better blood glucose 2/3: Continues on BIPAP, no clear improvement at this time. Will continue steroids therapy Remdesivir and also Full anticoagulation at this time. Will up date family. Discussed with Stone Carver. 2: Taking a break from the BiPAP on high flow and nonrebreather 100% with saturation of 90% becomes hypoxic with any movement. Stone Carver input noted will get a dose of Lasix today. Will await a discussion with ID for possibly increasing steroid. I updated Patient's Cousin, Tayla Esquivel who is the emergency automotive parts counterperson. Blood sugar remains fluctuating secondary to steriods, Encouraged Prone positioning. Noted with mild hyponatremia we will continue to monitor and manage 2/: Continue supportive care wean oxygen as tolerated prognosis remains guarded. Encouraged to progress as tolerated. Awaiting labs today. Discussed with nursing staff and patient at bedside. 2: Discontinued Dexamethasone as Solumedrol started secondary to increased oxygen demand. Will give additional insulin for better control. Continue oxygen support patient still on high flow. Prognosis still guarded 11/22: Patient was intubated and placed on mechanical ventilation. Continue current medication. Will check a.m. labs today. Noted still with hypotension. Doubt septic shock at this time as patient has no new fever. Will adjust insulin for better blood sugar control. 11/23: Patient admitted with COVID-19 despite all efforts patient remains severely hypoxic and now is intubated. Stone Carver input noted. Blood pressure marginal at this time. Very poor prognosis. Continue Solu-Medrol. 11/24. Patient remains very hypoxic. Blood pressure borderline. Plan for initiation of paralytic agents as per web mobile designer. Patient may need to be transferred if no improvement. 11/26. Off paralytics. Remains intubated. On steroids. Prognosis is poor. 11/27. Chest xray shows pneumomediastinum and subcutaneous emphysema. Surgery consulted. Plan for chest tube placement. Sputum culture grew MRSA. Patient started on vancomycin per ID. 11/28. Right chest tube placed yesterday by surgery. Repeat chest x-ray showed left small pneumothorax. Plan for chest tube placement on the left today. Remains on paralytic agents. 11/29. Remains intubated on vent. Had left chest tube placed yesterday. Vitals reviewed. Critical care following 11/30/ Remains on mechanical ventilation. Worsening hypoxia. Bilateral chest tubes in place. Vitals reviewed. Labs reviewed 12/01: Chest tube and mechanical ventilation remains in place, poor prognosis, FIO2 remains at 90%, adjust insulin for better blood glucose control 12/02: Patient remains on full ventilatory support and steroids, still with w orsening leukocytosis ?inflammatory or infectious vs steroids. Continue vancomycin. 12/03; slowly weaning, 12/04: Still on the vent FiO2 down to 65% PEEP remains at 18. Still with poor prognosis. 12/05: Patient continues on full ventilatory support per web mobile designer PEEP remains at 18. Still with hypercapnic respiratory failure. FiO2 down to 60% this morning. Chest tube to suction still weaning off steroids in the deliberation ongoing for possible a third chest tube as last documentation by surgery shows no plan for it at this time. Continue to manage insulin for better blood sugar control. 12/06:weaned down to 60%, continue supportive care, unable to wean, 12/07; patient remains intubated on ventilatory support, chest tubes in place trach and PEG when patient's Covid test is negative,Per surgery. 12/08; Patient remains intubated remains with hypercapnia and hypoxia. Chest tu be still remain in place. He is off antibiotics at this time. Continue steroids which is likely resultant to the leukocytosis. Stone Carver and surgeon following ID input is noted. Prognosis remains guarded to poor 12/10; patient remains intubated on vent, unable to wean awaiting trach and PEG w hen Covid test is negative, Continue current management 12/11; patient awaiting trach and PEG when Covid test is negative, vent dependent, poor prognosis 12/12; clinically no change, vent dependent, Patient is critically ill with very poor prognosis, awaiting trach and PEG when COVID-19 test turns negative. Plan discussed with nursing staff. Caregivers have discussed with patient's family periodically 12/13: Patient is critically ill with very poor prognosis, awaiting trach and PEG when COVID-19 test turns negative. Plan discussed with nursing staff. Caregivers have discussed with patient's family periodically 12/14: Increase UOP which we will monitor and replete as needed. Patient remain h ypoxemic on ABG despite 100 FiO2, remains on fentanyl, precedex, versed and levo gtt. 12/15: Patient remains sedated on fentanyl at 3 mcg, Versed at 30 mg, dexamethasone 0.3 and was on Levophed 6 mcg this morning. Patient's vent settings rate of 30, tidal volume 425, PEEP of 18, FiO2 of 85. RT attempted to wean as tolerated. No acute events reported overnight. Bilateral chest tubes to wall suction. 12/16: Overnight the patient was noted to be bradycardic, Precedex drip was increased to 0.6/fentanyl to 4 mcg/Versed 5 mg, bilateral chest tube to suction. Current vent settings for 425/30/18/0.75, RT to wean as tolerated 12/17: Patient's T-max overnight was 101.2, obtain CXR today, blood culture x2 per ID. Patient remains on fentanyl, Versed, Precedex and Levophed. Current vent settings AC 425/30/18/0.75, RT to wean as tolerated. Continue steroid taper. 12/18: Patient remains sedated on fentanyl, Versed, Precedex and has vasopressor support of Levophed, current vent settings 425/30/18/0.75 with bilateral chest tubes to wall suction. Patient's blood culture from 12/17 grew gram-positive cocci in pairs and chains however the patient is on vancomycin and cefepime. We will continue to follow for speciation and sensitivity. Hospitalist Physical - Constitutional Vitals: Temp Pulse Resp BP Pulse Ox 97.4 F L 108 H 30 H 111/58 92 12/18/20 16:48 12/18/20 15:11 12/18/20 15:00 12/18/20 15:11 12/18/20 15:11 General appearance: Present: no acute distress, well-nourished, other (Vent dependent) - Neck Neck: Present: normal ROM - Respiratory Respiratory effort: normal Respiratory: bilateral: diminished - Cardiovascular Rhythm: regular Heart Sounds: Present: S1 & S2. Absent: systolic murmur, diastolic murmur - Extremities Extremities: no ischemia, pulses intact, pulses symmetrical, No edema, normal temperature, normal color Peripheral Pulses: within normal limits - Abdominal General gastrointestinal: soft, non-tender, non-distended, normal bowel sounds - Psychiatric Psychiatric: other (Sedated) - Neurologic Neurologic: other (Sedated with bilateral wrist restraints) HEART Score - HEART Score Troponin: Troponin T < 0.010 ng/mL (0.00-0.029) 12/11/20 06:30 Results - Labs CBC & Chem 7: 12/18/20 04:32 12/18/20 08:27 Labs: Laboratory Last Values WBC 6.2 K/mm3 (4.5-11.0) 12/18/20 04:32 RBC 2.88 M/mm3 (3.65-5.03) L 12/18/20 04:32 Hgb 8.6 gm/dl (11.8-15.2) L 12/18/20 04:32 Hct 26.0 % (35.5-45.6) L 12/18/20 04:32 MCV 90 fl (84-94) 12/18/20 04:32 MCH 30 pg (28-32) 12/18/20 04:32 MCHC 33 % (32-34) 12/18/20 04:32 RDW 15.6 % (13.2-15.2) H 12/18/20 04:32 Plt Count 265 K/mm3 (140-440) 12/18/20 04:32 Lymph % (Auto) 2.0 % (13.4-35.0) L 11/27/20 06:25 [place] % (Auto) 5.2 % (0.0-7.3) 11/27/20 06:25 Eos % (Auto) 0.0 % (0.0-4.3) 11/27/20 06:25 Baso % (Auto) 0.1 % (0.0-1.8) 11/27/20 06:25 Lymph # (Auto) 0.3 K/mm3 (1.2-5.4) L 11/27/20 06:25 [place] # (Auto) 0.7 K/mm3 (0.0-0.8) 11/27/20 06:25 Eos # (Auto) 0.0 K/mm3 (0.0-0.4) 11/27/20 06:25 Baso # (Auto) 0.0 K/mm3 (0.0-0.1) 11/27/20 06:25 Add Manual Diff Complete 12/14/20 04:35 Total Counted 100 12/14/20 04:35 Seg Neutrophils % Safety Advisor 12/14/20 04:35 Seg Neuts % (Manual) 93.0 % (40.0-70.0) H 12/14/20 04:35 Band Neutrophils % 2.0 % 12/13/20 11:30 Lymphocytes % (Manual) 3.0 % (13.4-35.0) L 12/14/20 04:35 Monocytes % (Manual) 4.0 % (0.0-7.3) 12/14/20 04:35 Nucleated RBC % Not Reportable 12/14/20 04:35 Seg Neutrophils # 12.7 K/mm3 (1.8-7.7) H 11/27/20 06:25 Seg Neutrophils # Man 7.8 K/mm3 (1.8-7.7) H 12/14/20 04:35 Band Neutrophils # 0.0 K/mm3 12/14/20 04:35 Lymphocytes # (Manual) 0.3 K/mm3 (1.2-5.4) L 12/14/20 04:35 Abs React Lymphs (Man) 0.0 K/mm3 12/14/20 04:35 Monocytes # (Manual) 0.3 K/mm3 (0.0-0.8) 12/14/20 04:35 Eosinophils # (Manual) 0.0 K/mm3 (0.0-0.4) 12/14/20 04:35 Basophils # (Manual) 0.0 K/mm3 (0.0-0.1) 12/14/20 04:35 Metamyelocytes # 0.0 K/mm3 12/14/20 04:35 Myelocytes # 0.0 K/mm3 12/14/20 04:35 Promyelocytes # 0.0 K/mm3 12/14/20 04:35 Blast Cells # 0.0 K/mm3 12/14/20 04:35 WBC Morphology Not Reportable 12/14/20 04:35 Hypersegmented Neuts Not Reportable 12/14/20 04:35 Hyposegmented Neuts Not Reportable 12/14/20 04:35 Hypogranular Neuts Not Reportable 12/14/20 04:35 Smudge Cells Not Reportable 12/14/20 04:35 Toxic Granulation Not Reportable 12/14/20 04:35 Toxic Vacuolation Not Reportable 12/14/20 04:35 Dohle Bodies Not Reportable 12/14/20 04:35 Pelger-Huet Anomaly Not Reportable 12/14/20 04:35 Tony Rods Not Reportable 12/14/20 04:35 Platelet Estimate Consistent w auto 12/14/20 04:35 Clumped Platelets Not Reportable 12/14/20 04:35 Plt Clumps, EDTA Not Reportable 12/14/20 04:35 Large Platelets Not Reportable 12/14/20 04:35 Giant Platelets Not Reportable 12/14/20 04:35 Platelet Satelliting Not Reportable 12/14/20 04:35 Plt Morphology Comment Not Reportable 12/14/20 04:35 RBC Morphology Not Reportable 12/14/20 04:35 Dimorphic RBCs Not Reportable 12/14/20 04:35 Polychromasia Not Reportable 12/14/20 04:35 Hypochromasia Few 12/14/20 04:35 Poikilocytosis Not Reportable 12/14/20 04:35 Anisocytosis Few 12/14/20 04:35 Microcytosis Not Reportable 12/14/20 04:35 Macrocytosis Not Reportable 12/14/20 04:35 Spherocytes Not Reportable 12/14/20 04:35 Pappenheimer Bodies Not Reportable 12/14/20 04:35 Sickle Cells Not Reportable 12/14/20 04:35 Target Cells Not Reportable 12/14/20 04:35 Tear Drop Cells Not Reportable 12/14/20 04:35 Ovalocytes Not Reportable 12/14/20 04:35 Stomatocytes 1+ 12/03/20 04:35 Helmet Cells Not Reportable 12/14/20 04:35 [place] Bodies Not Reportable 12/14/20 04:35 [place] Rings Not Reportable 12/14/20 04:35 Henrry Cells Not Reportable 12/14/20 04:35 Bite Cells Not Reportable 12/14/20 04:35 Crenated Cell Not Reportable 12/14/20 04:35 Elliptocytes Not Reportable 12/14/20 04:35 Acanthocytes (Spur) Not Reportable 12/14/20 04:35 Rouleaux Not Reportable 12/14/20 04:35 Hemoglobin C Crystals Not Reportable 12/14/20 04:35 Schistocytes Not Reportable 12/14/20 04:35 Malaria parasites Not Reportable 12/14/20 04:35 Yovani Bodies Not Reportable 12/14/20 04:35 Hem Pathologist Commnt No 12/14/20 04:35 D-Dimer 926.11 ng/mlDDU (0-234) H 11/26/20 06:04 ABG pH 7.370 (7.320-7.450) 12/18/20 03:56 POC ABG pCO2 78.0 mmHg (32.0-48.0) H 12/18/20 03:56 ABG pCO2 81.3 mm Hg 12/08/20 04:12 POC ABG pO2 52.3 mmHg (83-108) L 12/18/20 03:56 ABG pO2 69.7 mm Hg (80.0-90.0) L 12/08/20 04:12 POC ABG HCO3 44.1 12/18/20 03:56 ABG HCO3 50.1 mmol/L (20.0-26.0) H 12/08/20 04:12 ABG O2 Saturation 95.4 % (95.0-99.0) 12/08/20 04:12 ABG O2 Content 13.0 (0.0-44) 12/07/20 05:20 POC ABG Base Excess 15.5 12/18/20 03:56 ABG Base Excess 21.6 mmol/L (-2.0-3.0) H 12/08/20 04:12 ABG Hemoglobin 11.7 (12.0-17.5) L 12/18/20 03:56 ABG Oxyhemoglobin 84.9 (94-98) L 12/18/20 03:56 ABG Carboxyhemoglobin 2.0 % (0.0-5.0) 12/08/20 04:12 ABG Methemoglobin 0.3 (0.0-1.5) 12/18/20 03:56 ABG Sodium 131.6 mmol/L (136.0-145.0) L 12/18/20 03:56 ABG Potassium 4.2 mmol/L (3.40-4.50) 12/18/20 03:56 ABG Chloride 89.0 mmol/L (98-107) L 12/18/20 03:56 ABG Glucose 191 mg/dL (65-95) H 12/18/20 03:56 Oxyhemoglobin 93.2 % (95.0-99.0) L 12/08/20 04:12 Carboxyhemoglobin 1.3 (0.5-1.5) 12/18/20 03:56 FiO2 75.0 12/18/20 03:56 Sodium 131 mmol/L (137-145) L 12/18/20 08:27 Potassium 4.2 mmol/L (3.6-5.0) 12/18/20 08:27 Chloride 89.0 mmol/L (98-107) L 12/18/20 08:27 Carbon Dioxide 41 mmol/L (22-30) H* 12/18/20 08:27 Anion Gap 5 mmol/L 12/18/20 08:27 BUN 11 mg/dL (9-20) 12/18/20 08:27 Creatinine < 0.2 mg/dL (0.8-1.3) L 12/18/20 08:27 Estimated GFR > 60 ml/min 12/18/20 08:27 BUN/Creatinine Ratio 55 % 12/18/20 08:27 Glucose 176 mg/dL (75-100) H 12/18/20 08:27 POC Glucose 174 mg/dL (70-105) H 12/18/20 11:37 Hemoglobin A1c 11.7 % (4-6) H 11/16/20 05:29 Lactic Acid 2.60 mmol/L (0.7-2.0) H* 11/16/20 05:29 Calcium 7.5 mg/dL (8.4-10.2) L 12/18/20 08:27 Phosphorus 2.60 mg/dL (2.5-4.5) 12/17/20 17:25 Magnesium 1.60 mg/dL (1.7-2.3) L 12/17/20 17:25 Ferritin 778.8 ng/mL (30.0-300.0) H 11/26/20 04:00 Total Bilirubin 0.40 mg/dL (0.1-1.2) 12/17/20 17:25 AST 29 units/L (5-40) 12/17/20 17:25 ALT 47 units/L (7-56) 12/17/20 17:25 Alkaline Phosphatase 119 units/L (35-129) 12/17/20 17:25 Lactate Dehydrogenase 288 units/L (91-180) H 11/26/20 04:00 Total Creatine Kinase 47 units/L (55-170) L 12/17/20 17:25 CK-MB (CK-2) 1.8 ng/mL (0.0-4.0) 12/17/20 17:25 CK-MB (CK-2) Rel Index 3.8 (0-4) 12/17/20 17:25 Troponin T < 0.010 ng/mL (0.00-0.029) 12/11/20 06:30 C-Reactive Protein 1.40 mg/dL (0.00-1.30) H 11/26/20 04:00 NT-Pro-B Natriuret Pep 107.2 pg/mL (0-900) 11/17/20 10:21 Total Protein 6.2 g/dL (6.3-8.2) L 12/17/20 17:25 Albumin 2.1 g/dL (3.9-5) L 12/17/20 17:25 Albumin/Globulin Ratio 0.5 % 12/17/20 17:25 Triglycerides 150 mg/dL (2-149) H 12/12/20 05:16 Procalcitonin 0.16 ng/mL (<0.15) 12/12/20 05:16 Arterial Blood Glucose 191 mg/dL (65-95) H 12/18/20 03:56 Arterial Blood Ionized Calcium 4.4 mg/dL (4.6-5.3) L 12/18/20 03:56 Urine Color Faustina (Yellow) 11/16/20 01:45 Urine Turbidity Slightly-cloudy (Clear) 11/16/20 01:45 Urine pH 6.0 (5.0-7.0) 11/16/20 01:45 Ur Specific [place] 1.037 (1.003-1.030) H 11/16/20 01:45 Urine Protein 30 mg/dl mg/dL (Negative) 11/16/20 01:45 Urine Glucose (UA) >=500 mg/dL (Negative) 11/16/20 01:45 Urine Ketones 20 mg/dL (Negative) 11/16/20 01:45 Urine Blood Neg (Negative) 11/16/20 01:45 Urine Nitrite Neg (Negative) 11/16/20 01:45 Urine Bilirubin Neg (Negative) 11/16/20 01:45 Urine Urobilinogen 2.0 mg/dL (<2.0) 11/16/20 01:45 Ur Leukocyte Esterase Neg (Negative) 11/16/20 01:45 Urine WBC (Auto) 2.0 /HPF (0.0-6.0) 11/16/20 01:45 Urine RBC (Auto) 1.0 /HPF (0.0-6.0) 11/16/20 01:45 Urine Bacteria (Auto) 1+ /HPF (Negative) 11/16/20 01:45 Urine Mucus 3+ /HPF 11/16/20 01:45 Vancomycin Trough 4.0 ug/mL (5.0-20.0) L 11/29/20 15:40 Coronavirus (PCR) Positive (Negative) A 12/13/20 10:00 Hepatitis A IgM Ab Non-reactive (NonReactive) 12/17/20 21:40 Hep Bs Antigen Non-reactive (Negative) 12/17/20 21:40 Hep B Core IgM Ab Non-reactive (NonReactive) 12/17/20 21:40 Hepatitis C Antibody Non-reactive (NonReactive) 12/17/20 21:40 HIV 1&2 Antibody Rapid Non react (Non React) 12/17/20 21:40 HIV P24 Antigen Non react (Non React) 12/17/20 21:40 Microbiology: Microbiology 12/17/20 Unknown Peripheral/Venous Blood Culture - Preliminary 12/17/20 Unknown Tracheal Aspirate Sputum Culture - Preliminary 12/17/20 21:00 Urine,Gupta Port Urine Culture - Preliminary 12/17/20 Unknown Peripheral/Venous Blood Culture - Preliminary Culture in Progress - Diagnostic Impressions Diagnostic Impressions: Echocardiogram 11/16/20 10:34 Transthoracic Echocardiogram Indication: Shortness of breath-COVID BP: 108/77 HR: 92 Conclusions *Global left ventricular systolic function is normal. *The estimated ejection fraction is 60-65%. *Mild to moderate concentric left ventricular hypertrophy is observed. *There is trace of mitral regurgitation. *There is mild to moderate tricuspid regurgitation. *There is evidence of mild pulmonary hypertension. *The right ventricular systolic pressure is calculated at 31 mmHg. Findings Left Ventricle: The left ventricular chamber size is normal. Mild to moderate concentric left ventricular hypertrophy is observed. Global left ventricular systolic function is normal. The estimated ejection fraction is 60-65%. Left Atrium: The left atrial chamber size is normal. Right Ventricle: The right ventricular cavity size is normal. The right ventricular global systolic function is normal. Right Atrium: The right atrial cavity size is normal. Aortic Valve: The aortic valve is trileaflet. There is no evidence of aortic regurgitation. There is no evidence of aortic stenosis. Mitral Valve: The mitral valve leaflets appear normal. There is trace of mitral regurgitation. There is no evidence of mitral stenosis. Tricuspid Valve: The tricuspid valve leaflets are normal. There is mild to moderate tricuspid regurgitation. The right ventricular systolic pressure is calculated at 31 mmHg. There is evidence of mild pulmonary hypertension. Pulmonic Valve: There is trace pulmonic regurgitation. Pericardium: There is no pericardial effusion. Aorta: There is no dilatation of the ascending aorta. There is no dilatation of the aortic root. Venous: The inferior vena cava appears normal in size. Measurements Chambers 2D Name Value Normal Range IVSd (2D) 0.81 cm (0.6 - 1.1) LVPWd (2D) 0.79 cm (0.6 - 1.1) LVIDd (2D) 4.22 cm (3.7 - 5.6) LVIDs (2D) 3.1 cm (2 - 3.8) LV FS (2D) 26.71 % - EF Teichholz (2D) 52.55 % - Ao root diameter (2D) 3.34 cm (2 - 3.7) Volumes/Mass Name Value Normal Range LA ESV SP 4CH (A/L) 10.87 ml - LA ESV SP 2CH (A/L) 18.74 ml - LA ESV BP (A/L) 16.38 ml - LA ESV BP (A/L) index 8.62 ml/m2 - LA ESV SP 4CH (MOD) 10.32 ml - LA ESV SP 2CH (MOD) 17.66 ml - LA ESV BP (MOD) 15.12 ml - LA ESV BP (MOD) index 7.96 ml/m2 - Diastolic/Systolic Function Name Value Normal Range MV E-wave Vmax 0.76 m/sec - MV deceleration time 133.63 msec - MV A-wave Vmax 1.1 m/sec - MV E:A ratio 0.69 ratio - Aortic Valve Name Value Normal Range AV Vmax 1.44 m/sec - AV VTI 22.94 cm - AV peak gradient 8.33 mmHg - AV mean gradient 4.73 mmHg - LVOT diameter 2.2 cm - LVOT Vmax 1.04 m/sec - LVOT VTI 18.88 cm - LVOT peak gradient 4.34 mmHg - LVOT mean gradient 2.31 mmHg - SV LVOT 72.05 ml - EVANGELISTA (continuity Vmax) 2.75 cm2 - EVANGELISTA (continuity VTI) 3.14 cm2 - Tricuspid Valve Name Value Normal Range TR Vmax 2.64 m/sec - TR peak gradient 28 mmHg - RAP 3 mmHg - RVSP 31 mmHg - Gupta/IV: Voiding Method Incontinent IV Catheter Type [Left Peripheral IV Antecubital] Active Medications - Current Medications Current Medications: Generic Name Dose Route Start Last Admin Trade Name Freq PRN Reason Stop Dose Admin Acetaminophen 650 mg 11/15/20 23:55 12/17/20 20:19 Acetaminophen 325 Mg Tab PO 650 mg Q4H PRN Administration Pain MILD(1-3)/Fever >100.5/BUTTS Lipase/Protease/Amylase 1 each 11/23/20 11:53 12/05/20 23:45 Lipase 10,500/Protease 25,000/Amylase 43,750 (Units) Dr Slater FEEDTUBE 1 each PRN PRN Administration For Clogged Feeding Tube Dextrose 25 ml 12/10/20 05:21 12/10/20 05:24 Dextrose 50% In Water (25gm) 50 Ml Syringe IV 25 ml Q30MIN PRN Administration Hypoglycemia Protocol Enoxaparin Sodium 40 mg 12/03/20 22:00 12/17/20 22:19 Enoxaparin 40 Mg/0.4 Ml Inj SUB-Q 40 mg QDAY@2200 RAEANN Administration Famotidine 20 mg 12/16/20 10:00 12/18/20 10:29 Famotidine 20 Mg Tab PO 20 mg BID RAEANN Administration Hydrophilic Ointment 1 applic 11/21/20 21:53 11/30/20 21:33 Lip Therapy Vaseline TP 1 applic Q2HR PRN Administration Dry Lips Fentanyl Citrate 2,000 mcg in 100 mls @ 3.625 mls/hr 11/21/20 22:00 12/18/20 12:31 Fentanyl Drip Premix IV 4 mcg/kg/hr TITR RAEANN 14.5 mls/hr Administration Protocol 1 MCG/KG/HR Midazolam HCl 100 mg/ Sodium 100 mls @ 2 mls/hr 11/21/20 22:00 12/18/20 13:25 Chloride IV 5 mg/hr TITR RAEANN 5 mls/hr Administration Protocol 2 MG/HR Norepinephrine 4 mg in 250 mls @ 7.5 mls/hr 11/22/20 17:00 12/18/20 16:16 Levophed Drip 4 Mg/Ns 250 Ml IV 8 mcg/min TITR RAEANN 30 mls/hr Titration Protocol 2 MCG/MIN Propofol 1,000 mg in 100 mls @ 2.175 mls/hr 11/27/20 12:00 12/11/20 17:55 Diprivan 10 Mg/Ml IV 0 mcg/kg/min TITR RAEANN 0 mls/hr Titration Protocol 5 MCG/KG/MIN Dexmedetomidine HCl 400 mcg/ 104 mls @ 4.441 mls/hr 12/10/20 13:00 12/18/20 13:37 Sodium Chloride IV 0.7 mcg/kg/hr TITRATE RAEANN 15.543 mls/hr Titration Protocol 0.2 MCG/KG/HR Cefepime HCl 2 gm in 100 mls @ 200 mls/hr 12/17/20 14:00 12/18/20 13:27 Cefepime/Ns 2 Gm/100 Ml IV 200 mls/hr Q8HR RAEANN Administration Protocol Vancomycin HCl 1,500 mg/ 530 mls @ 333.333 mls/hr 12/17/20 16:00 12/18/20 16:16 Sodium Chloride IV 333.333 mls/hr Q12H RAEANN Administration Insulin Glargine 8 units 12/17/20 13:52 12/17/20 22:21 Insulin Glargine 100 Units/Ml SUB-Q 8 units QHS RAEANN Administration Insulin Human Lispro 0 unit 11/22/20 06:00 12/18/20 12:54 Insulin Lispro 100 Unit/Ml SUB-Q 3 unit Q6HR RAEANN Administration Protocol Metoclopramide HCl 10 mg 11/15/20 23:55 Metoclopramide 10 Mg/2 Ml Inj IV Q6H PRN Nausea And Vomiting Multi-Ingred Cream/Lotion/Oil/Oint 1 applic 11/21/20 21:53 Mineral Oil/Petrolatum, White Ophth Oint 3.5 Gm OU Q4HR PRN Dry Eye(s) Ondansetron HCl 4 mg 11/15/20 23:55 Ondansetron 4 Mg/2 Ml Inj IV Q8H PRN Nausea And Vomiting Prednisone 10 mg 12/19/20 10:00 Prednisone 10 Mg Tab PO 12/22/20 10:01 QDAY RAEANN Senna/Docusate Sodium 2 tab 12/03/20 13:00 12/18/20 10:29 Sennosides/Docusate Sodium 8.6/50 Mg Tab PO 2 tab BID RAEANN Administration Simple Syrup 15 ml 11/23/20 11:53 Simple Syrup 15 Ml FEEDTUBE PRN PRN Hypoglycemia Simple Syrup 30 ml 11/23/20 11:53 Simple Syrup 15 Ml FEEDTUBE PRN PRN Hypoglycemia Sodium Bicarbonate 325 mg 11/23/20 11:53 12/05/20 23:46 Sodium Bicarbonate 325 Mg Tab FEEDTUBE 325 mg PRN PRN Administration For Clogged Feeding Tube Sodium Chloride 10 ml 11/16/20 10:00 12/18/20 10:30 Sodium Chloride 0.9% 10 Ml Flush Syringe IV 10 ml BID RAEANN Administration Sodium Chloride 10 ml 11/15/20 23:55 12/03/20 00:21 Sodium Chloride 0.9% 10 Ml Flush Syringe IV 10 ml PRN PRN Administration LINE FLUSH Nutrition/Malnutrition Assess - Dietary Evaluation Nutrition/Malnutrition Findings: Nutrition Notes Start: 11/20/20 12:03 Freq: Status: Active Protocol: Document 12/16/20 12:37 AL (Rec: 12/16/20 12:44 AL [id number]) Co-Sign 12/16/20 12:37 LP Nutrition Notes Initial or Follow up Reassessment Current Diagnosis Diabetes,Sepsis,Respiratory Failure Other Pertinent Diagnosis Bilat pneu, COVID-19 (+) Current Diet Glucerna 1.2 at 60 ml/hr Labs/Tests BG 203 Pertinent Medications Solumedrol Levophed Height 5 ft 6 in Weight 78.3 kg Usual Body Weight 80.5 kg [place] Body Weight (kg) 64.54 BMI 27.8 Weight change and time frame 10% wt loss/ 7days noted. Weight Status Overweight Subjective/Other Information FU for TF tolerance. Pt tolerating TF at 60 ml/hr ( goal rate). Will increase to 65 ml/hr to reflect wt change. Percent of energy/protein needs met: 100%/100% Burn Absent Trauma Absent GI Symptoms Last BM Difficulty In Swallowing,Chewing Current % PO Negligible Minimum of two criteria Yes Energy Intake (severe) < or equal to 50% Estimated Energy Requirement > or equal to 5 days Interpretation of Weight Loss (severe) >2% in 1 week Fluid Accumulation Moderate to Severe (severe) #3 Nutrition Diagnosis Inadequate oral intake Diagnosis Progress(for reassessment Continues documentation) #2 Nutrition Diagnosis Malnutrition Diagnosis Progress(for reassessment Continues documentation) #1 Nutrition Diagnosis Unintended weight loss Diagnosis Progress(for reassessment Continues documentation) Is patient on ventilator? Yes Is Patient Ambulatory and/or Out of Bed No REE-([facility]-confined to bed) 7564.532 Calculation Used for Recommendations [facility] Additional Notes Protein: 87-145 g/day (1.2-2g/ kg) Fluid: 1ml/kcal or per MD Nutrition Intervention Change Diet Order: Continue TF Nutrition Support: Glucerna 1.2 at 65 ml/hr. Flush 125 ml q4h Kcal 1,872 Protein (gm) 93 Fluid (mL) 1,255 Goal #1 TF Goal #2 Meet at least 75% of energy and protein needs via TF Anticipated Discharge Needs: Unknown at the time Follow-Up By: 12/21/20 Additional Comments FU for TF tolerance <DEMETRIO GONZALEZ - Last Filed: 12/19/20 08:03> Assessment and Plan Assessment and plan: I saw and evaluated the patient. I agree with the findings and the plan of care as documented in the Nurse Practitioner's~note, with the following corrections and additions. The high probability of a clinically significant, sudden or life threatening deterioration of the [multi] system(s) required my full and direct attention, intervention and personal management. The aggregate critical care time was [35] minutes. This time is in addition to time spent performing reported procedures but includes the following: [x] Data Review and interpretation [x] Patient assessment and monitoring of vital signs [x] Documentation [x] Medication orders and management Hospitalist Physical - Constitutional Vitals: Temp Pulse Resp BP Pulse Ox 99 F 93 H 29 H 106/65 94 12/19/20 03:28 12/19/20 06:00 12/19/20 06:00 12/19/20 06:00 12/19/20 06:00 HEART Score - HEART Score Troponin: Troponin T < 0.010 ng/mL (0.00-0.029) 12/11/20 06:30 Results - Labs CBC & Chem 7: 12/18/20 04:32 12/19/20 Unknown Labs: Laboratory Last Values WBC 6.2 K/mm3 (4.5-11.0) 12/18/20 04:32 RBC 2.88 M/mm3 (3.65-5.03) L 12/18/20 04:32 Hgb 8.6 gm/dl (11.8-15.2) L 12/18/20 04:32 Hct 26.0 % (35.5-45.6) L 12/18/20 04:32 MCV 90 fl (84-94) 12/18/20 04:32 MCH 30 pg (28-32) 12/18/20 04:32 MCHC 33 % (32-34) 12/18/20 04:32 RDW 15.6 % (13.2-15.2) H 12/18/20 04:32 Plt Count 265 K/mm3 (140-440) 12/18/20 04:32 Lymph % (Auto) 2.0 % (13.4-35.0) L 11/27/20 06:25 [place] % (Auto) 5.2 % (0.0-7.3) 11/27/20 06:25 Eos % (Auto) 0.0 % (0.0-4.3) 11/27/20 06:25 Baso % (Auto) 0.1 % (0.0-1.8) 11/27/20 06:25 Lymph # (Auto) 0.3 K/mm3 (1.2-5.4) L 11/27/20 06:25 [place] # (Auto) 0.7 K/mm3 (0.0-0.8) 11/27/20 06:25 Eos # (Auto) 0.0 K/mm3 (0.0-0.4) 11/27/20 06:25 Baso # (Auto) 0.0 K/mm3 (0.0-0.1) 11/27/20 06:25 Add Manual Diff Complete 12/14/20 04:35 Total Counted 100 12/14/20 04:35 Seg Neutrophils % Safety Advisor 12/14/20 04:35 Seg Neuts % (Manual) 93.0 % (40.0-70.0) H 12/14/20 04:35 Band Neutrophils % 2.0 % 12/13/20 11:30 Lymphocytes % (Manual) 3.0 % (13.4-35.0) L 12/14/20 04:35 Monocytes % (Manual) 4.0 % (0.0-7.3) 12/14/20 04:35 Nucleated RBC % Not Reportable 12/14/20 04:35 Seg Neutrophils # 12.7 K/mm3 (1.8-7.7) H 11/27/20 06:25 Seg Neutrophils # Man 7.8 K/mm3 (1.8-7.7) H 12/14/20 04:35 Band Neutrophils # 0.0 K/mm3 12/14/20 04:35 Lymphocytes # (Manual) 0.3 K/mm3 (1.2-5.4) L 12/14/20 04:35 Abs React Lymphs (Man) 0.0 K/mm3 12/14/20 04:35 Monocytes # (Manual) 0.3 K/mm3 (0.0-0.8) 12/14/20 04:35 Eosinophils # (Manual) 0.0 K/mm3 (0.0-0.4) 12/14/20 04:35 Basophils # (Manual) 0.0 K/mm3 (0.0-0.1) 12/14/20 04:35 Metamyelocytes # 0.0 K/mm3 12/14/20 04:35 Myelocytes # 0.0 K/mm3 12/14/20 04:35 Promyelocytes # 0.0 K/mm3 12/14/20 04:35 Blast Cells # 0.0 K/mm3 12/14/20 04:35 WBC Morphology Not Reportable 12/14/20 04:35 Hypersegmented Neuts Not Reportable 12/14/20 04:35 Hyposegmented Neuts Not Reportable 12/14/20 04:35 Hypogranular Neuts Not Reportable 12/14/20 04:35 Smudge Cells Not Reportable 12/14/20 04:35 Toxic Granulation Not Reportable 12/14/20 04:35 Toxic Vacuolation Not Reportable 12/14/20 04:35 Dohle Bodies Not Reportable 12/14/20 04:35 Pelger-Huet Anomaly Not Reportable 12/14/20 04:35 Tony Rods Not Reportable 12/14/20 04:35 Platelet Estimate Consistent w auto 12/14/20 04:35 Clumped Platelets Not Reportable 12/14/20 04:35 Plt Clumps, EDTA Not Reportable 12/14/20 04:35 Large Platelets Not Reportable 12/14/20 04:35 Giant Platelets Not Reportable 12/14/20 04:35 Platelet Satelliting Not Reportable 12/14/20 04:35 Plt Morphology Comment Not Reportable 12/14/20 04:35 RBC Morphology Not Reportable 12/14/20 04:35 Dimorphic RBCs Not Reportable 12/14/20 04:35 Polychromasia Not Reportable 12/14/20 04:35 Hypochromasia Few 12/14/20 04:35 Poikilocytosis Not Reportable 12/14/20 04:35 Anisocytosis Few 12/14/20 04:35 Microcytosis Not Reportable 12/14/20 04:35 Macrocytosis Not Reportable 12/14/20 04:35 Spherocytes Not Reportable 12/14/20 04:35 Pappenheimer Bodies Not Reportable 12/14/20 04:35 Sickle Cells Not Reportable 12/14/20 04:35 Target Cells Not Reportable 12/14/20 04:35 Tear Drop Cells Not Reportable 12/14/20 04:35 Ovalocytes Not Reportable 12/14/20 04:35 Stomatocytes 1+ 12/03/20 04:35 Helmet Cells Not Reportable 12/14/20 04:35 [place] Bodies Not Reportable 12/14/20 04:35 [place] Rings Not Reportable 12/14/20 04:35 [place] Cells Not Reportable 12/14/20 04:35 Bite Cells Not Reportable 12/14/20 04:35 Crenated Cell Not Reportable 12/14/20 04:35 Elliptocytes Not Reportable 12/14/20 04:35 Acanthocytes (Spur) Not Reportable 12/14/20 04:35 Rouleaux Not Reportable 12/14/20 04:35 Hemoglobin C Crystals Not Reportable 12/14/20 04:35 Schistocytes Not Reportable 12/14/20 04:35 Malaria parasites Not Reportable 12/14/20 04:35 Yovani Bodies Not Reportable 12/14/20 04:35 Hem Pathologist Commnt No 12/14/20 04:35 D-Dimer 926.11 ng/mlDDU (0-234) H 11/26/20 06:04 ABG pH 7.370 (7.320-7.450) 12/18/20 03:56 POC ABG pCO2 78.0 mmHg (32.0-48.0) H 12/18/20 03:56 ABG pCO2 81.3 mm Hg 12/08/20 04:12 POC ABG pO2 52.3 mmHg (83-108) L 12/18/20 03:56 ABG pO2 69.7 mm Hg (80.0-90.0) L 12/08/20 04:12 POC ABG HCO3 44.1 12/18/20 03:56 ABG HCO3 50.1 mmol/L (20.0-26.0) H 12/08/20 04:12 ABG O2 Saturation 95.4 % (95.0-99.0) 12/08/20 04:12 ABG O2 Content 13.0 (0.0-44) 12/07/20 05:20 POC ABG Base Excess 15.5 12/18/20 03:56 ABG Base Excess 21.6 mmol/L (-2.0-3.0) H 12/08/20 04:12 ABG Hemoglobin 11.7 (12.0-17.5) L 12/18/20 03:56 ABG Oxyhemoglobin 84.9 (94-98) L 12/18/20 03:56 ABG Carboxyhemoglobin 2.0 % (0.0-5.0) 12/08/20 04:12 ABG Methemoglobin 0.3 (0.0-1.5) 12/18/20 03:56 ABG Sodium 131.6 mmol/L (136.0-145.0) L 12/18/20 03:56 ABG Potassium 4.2 mmol/L (3.40-4.50) 12/18/20 03:56 ABG Chloride 89.0 mmol/L (98-107) L 12/18/20 03:56 ABG Glucose 191 mg/dL (65-95) H 12/18/20 03:56 Oxyhemoglobin 93.2 % (95.0-99.0) L 12/08/20 04:12 Carboxyhemoglobin 1.3 (0.5-1.5) 12/18/20 03:56 FiO2 75.0 12/18/20 03:56 Sodium 133 mmol/L (137-145) L 12/19/20 Unknown Potassium 4.2 mmol/L (3.6-5.0) 12/19/20 Unknown Chloride 89.9 mmol/L (98-107) L 12/19/20 Unknown Carbon Dioxide 39 mmol/L (22-30) H 12/19/20 Unknown Anion Gap 8 mmol/L 12/19/20 Unknown BUN 11 mg/dL (9-20) 12/19/20 Unknown Creatinine 0.2 mg/dL (0.8-1.3) L 12/19/20 Unknown Estimated GFR > 60 ml/min 12/19/20 Unknown BUN/Creatinine Ratio 55 % 12/19/20 Unknown Glucose 197 mg/dL (75-100) H 12/19/20 Unknown POC Glucose 166 mg/dL (70-105) H 12/19/20 05:26 Hemoglobin A1c 11.7 % (4-6) H 11/16/20 05:29 Lactic Acid 2.60 mmol/L (0.7-2.0) H* 11/16/20 05:29 Calcium 7.6 mg/dL (8.4-10.2) L 12/19/20 Unknown Phosphorus 2.60 mg/dL (2.5-4.5) 12/17/20 17:25 Magnesium 1.60 mg/dL (1.7-2.3) L 12/17/20 17:25 Ferritin 778.8 ng/mL (30.0-300.0) H 11/26/20 04:00 Total Bilirubin 0.40 mg/dL (0.1-1.2) 12/17/20 17:25 AST 29 units/L (5-40) 12/17/20 17:25 ALT 47 units/L (7-56) 12/17/20 17:25 Alkaline Phosphatase 119 units/L (35-129) 12/17/20 17:25 Lactate Dehydrogenase 288 units/L (91-180) H 11/26/20 04:00 Total Creatine Kinase 47 units/L (55-170) L 12/17/20 17:25 CK-MB (CK-2) 1.8 ng/mL (0.0-4.0) 12/17/20 17:25 CK-MB (CK-2) Rel Index 3.8 (0-4) 12/17/20 17:25 Troponin T < 0.010 ng/mL (0.00-0.029) 12/11/20 06:30 C-Reactive Protein 1.40 mg/dL (0.00-1.30) H 11/26/20 04:00 NT-Pro-B Natriuret Pep 107.2 pg/mL (0-900) 11/17/20 10:21 Total Protein 6.2 g/dL (6.3-8.2) L 12/17/20 17:25 Albumin 2.1 g/dL (3.9-5) L 12/17/20 17:25 Albumin/Globulin Ratio 0.5 % 12/17/20 17:25 Triglycerides 150 mg/dL (2-149) H 12/12/20 05:16 Procalcitonin 0.16 ng/mL (<0.15) 12/12/20 05:16 Arterial Blood Glucose 191 mg/dL (65-95) H 12/18/20 03:56 Arterial Blood Ionized Calcium 4.4 mg/dL (4.6-5.3) L 12/18/20 03:56 Urine Color Faustina (Yellow) 11/16/20 01:45 Urine Turbidity Slightly-cloudy (Clear) 11/16/20 01:45 Urine pH 6.0 (5.0-7.0) 11/16/20 01:45 Ur Specific [place] 1.037 (1.003-1.030) H 11/16/20 01:45 Urine Protein 30 mg/dl mg/dL (Negative) 11/16/20 01:45 Urine Glucose (UA) >=500 mg/dL (Negative) 11/16/20 01:45 Urine Ketones 20 mg/dL (Negative) 11/16/20 01:45 Urine Blood Neg (Negative) 11/16/20 01:45 Urine Nitrite Neg (Negative) 11/16/20 01:45 Urine Bilirubin Neg (Negative) 11/16/20 01:45 Urine Urobilinogen 2.0 mg/dL (<2.0) 11/16/20 01:45 Ur Leukocyte Esterase Neg (Negative) 11/16/20 01:45 Urine WBC (Auto) 2.0 /HPF (0.0-6.0) 11/16/20 01:45 Urine RBC (Auto) 1.0 /HPF (0.0-6.0) 11/16/20 01:45 Urine Bacteria (Auto) 1+ /HPF (Negative) 11/16/20 01:45 Urine Mucus 3+ /HPF 11/16/20 01:45 Vancomycin Trough 4.0 ug/mL (5.0-20.0) L 11/29/20 15:40 Coronavirus (PCR) Positive (Negative) A 12/13/20 10:00 Hepatitis A IgM Ab Non-reactive (NonReactive) 12/17/20 21:40 Hep Bs Antigen Non-reactive (Negative) 12/17/20 21:40 Hep B Core IgM Ab Non-reactive (NonReactive) 12/17/20 21:40 Hepatitis C Antibody Non-reactive (NonReactive) 12/17/20 21:40 HIV 1&2 Antibody Rapid Non react (Non React) 12/17/20 21:40 HIV P24 Antigen Non react (Non React) 12/17/20 21:40 Microbiology: Microbiology 12/17/20 Unknown Peripheral/Venous Blood Culture - Preliminary 12/17/20 Unknown Peripheral/Venous Blood Culture - Preliminary 12/17/20 Unknown Tracheal Aspirate Sputum Culture - Preliminary 12/17/20 21:00 Urine,Gupta Port Urine Culture - Preliminary - Diagnostic Impressions Diagnostic Impressions: Echocardiogram 11/16/20 10:34 Transthoracic Echocardiogram Indication: Shortness of breath-COVID BP: 108/77 HR: 92 Conclusions *Global left ventricular systolic function is normal. *The estimated ejection fraction is 60-65%. *Mild to moderate concentric left ventricular hypertrophy is observed. *There is trace of mitral regurgitation. *There is mild to moderate tricuspid regurgitation. *There is evidence of mild pulmonary hypertension. *The right ventricular systolic pressure is calculated at 31 mmHg. Findings Left Ventricle: The left ventricular chamber size is normal. Mild to moderate concentric left ventricular hypertrophy is observed. Global left ventricular systolic function is normal. The estimated ejection fraction is 60-65%. Left Atrium: The left atrial chamber size is normal. Right Ventricle: The right ventricular cavity size is normal. The right ventricular global systolic function is normal. Right Atrium: The right atrial cavity size is normal. Aortic Valve: The aortic valve is trileaflet. There is no evidence of aortic regurgitation. There is no evidence of aortic stenosis. Mitral Valve: The mitral valve leaflets appear normal. There is trace of mitral regurgitation. There is no evidence of mitral stenosis. Tricuspid Valve: The tricuspid valve leaflets are normal. There is mild to moderate tricuspid regurgitation. The right ventricular systolic pressure is calculated at 31 mmHg. There is evidence of mild pulmonary hypertension. Pulmonic Valve: There is trace pulmonic regurgitation. Pericardium: There is no pericardial effusion. Aorta: There is no dilatation of the ascending aorta. There is no dilatation of the aortic root. Venous: The inferior vena cava appears normal in size. Measurements Chambers 2D Name Value Normal Range IVSd (2D) 0.81 cm (0.6 - 1.1) LVPWd (2D) 0.79 cm (0.6 - 1.1) LVIDd (2D) 4.22 cm (3.7 - 5.6) LVIDs (2D) 3.1 cm (2 - 3.8) LV FS (2D) 26.71 % - EF Teichholz (2D) 52.55 % - Ao root diameter (2D) 3.34 cm (2 - 3.7) Volumes/Mass Name Value Normal Range LA ESV SP 4CH (A/L) 10.87 ml - LA ESV SP 2CH (A/L) 18.74 ml - LA ESV BP (A/L) 16.38 ml - LA ESV BP (A/L) index 8.62 ml/m2 - LA ESV SP 4CH (MOD) 10.32 ml - LA ESV SP 2CH (MOD) 17.66 ml - LA ESV BP (MOD) 15.12 ml - LA ESV BP (MOD) index 7.96 ml/m2 - Diastolic/Systolic Function Name Value Normal Range MV E-wave Vmax 0.76 m/sec - MV deceleration time 133.63 msec - MV A-wave Vmax 1.1 m/sec - MV E:A ratio 0.69 ratio - Aortic Valve Name Value Normal Range AV Vmax 1.44 m/sec - AV VTI 22.94 cm - AV peak gradient 8.33 mmHg - AV mean gradient 4.73 mmHg - LVOT diameter 2.2 cm - LVOT Vmax 1.04 m/sec - LVOT VTI 18.88 cm - LVOT peak gradient 4.34 mmHg - LVOT mean gradient 2.31 mmHg - SV LVOT 72.05 ml - EVANGELISTA (continuity Vmax) 2.75 cm2 - EVANGELISTA (continuity VTI) 3.14 cm2 - Tricuspid Valve Name Value Normal Range TR Vmax 2.64 m/sec - TR peak gradient 28 mmHg - RAP 3 mmHg - RVSP 31 mmHg - Gupta/IV: Voiding Method Indwelling Catheter IV Catheter Type [Left Peripheral IV Antecubital] Active Medications - Current Medications Current Medications: Generic Name Dose Route Start Last Admin Trade Name Freq PRN Reason Stop Dose Admin Acetaminophen 650 mg 11/15/20 23:55 12/17/20 20:19 Acetaminophen 325 Mg Tab PO 650 mg Q4H PRN Administration Pain MILD(1-3)/Fever >100.5/BUTTS Lipase/Protease/Amylase 1 each 11/23/20 11:53 12/05/20 23:45 Lipase 10,500/Protease 25,000/Amylase 43,750 (Units) Dr Slater FEEDTUBE 1 each PRN PRN Administration For Clogged Feeding Tube Dextrose 25 ml 12/10/20 05:21 12/10/20 05:24 Dextrose 50% In Water (25gm) 50 Ml Syringe IV 25 ml Q30MIN PRN Administration Hypoglycemia Protocol Enoxaparin Sodium 40 mg 12/03/20 22:00 12/18/20 22:12 Enoxaparin 40 Mg/0.4 Ml Inj SUB-Q 40 mg QDAY@2200 RAEANN Administration Famotidine 20 mg 12/16/20 10:00 12/18/20 22:12 Famotidine 20 Mg Tab PO 20 mg BID RAEANN Administration Hydrophilic Ointment 1 applic 11/21/20 21:53 11/30/20 21:33 Lip Therapy Vaseline TP 1 applic Q2HR PRN Administration Dry Lips Midazolam HCl 100 mg/ Sodium 100 mls @ 2 mls/hr 11/21/20 22:00 12/18/20 13:25 Chloride IV 5 mg/hr TITR RAEANN 5 mls/hr Administration Protocol 2 MG/HR Norepinephrine 4 mg in 250 mls @ 7.5 mls/hr 11/22/20 17:00 12/19/20 05:43 Levophed Drip 4 Mg/Ns 250 Ml IV 2 mcg/min TITR RAEANN 7.5 mls/hr Titration Protocol 2 MCG/MIN Propofol 1,000 mg in 100 mls @ 2.175 mls/hr 11/27/20 12:00 12/11/20 17:55 Diprivan 10 Mg/Ml IV 0 mcg/kg/min TITR RAEANN 0 mls/hr Titration Protocol 5 MCG/KG/MIN Dexmedetomidine HCl 400 mcg/ 104 mls @ 4.441 mls/hr 12/10/20 13:00 12/19/20 04:33 Sodium Chloride IV 0.8 mcg/kg/hr TITRATE RAEANN 17.763 mls/hr Administration Protocol 0.2 MCG/KG/HR Cefepime HCl 2 gm in 100 mls @ 200 mls/hr 12/17/20 14:00 12/19/20 05:59 Cefepime/Ns 2 Gm/100 Ml IV 200 mls/hr Q8HR RAEANN Administration Protocol Vancomycin HCl 1,500 mg/ 530 mls @ 333.333 mls/hr 12/17/20 16:00 12/19/20 03:57 Sodium Chloride IV 333.333 mls/hr Q12H RAEANN Administration Fentanyl Citrate 2,000 mcg in 100 mls @ 3.9 mls/hr 12/18/20 19:00 12/19/20 01:42 Fentanyl Drip Premix IV 4 mcg/kg/hr TITR RAEANN 15.6 mls/hr Administration Protocol 1 MCG/KG/HR Insulin Glargine 8 units 12/17/20 13:52 12/18/20 22:12 Insulin Glargine 100 Units/Ml SUB-Q 8 units QHS RAEANN Administration Insulin Human Lispro 0 unit 11/22/20 06:00 12/19/20 06:07 Insulin Lispro 100 Unit/Ml SUB-Q 3 unit Q6HR RAEANN Administration Protocol Metoclopramide HCl 10 mg 11/15/20 23:55 Metoclopramide 10 Mg/2 Ml Inj IV Q6H PRN Nausea And Vomiting Multi-Ingred Cream/Lotion/Oil/Oint 1 applic 11/21/20 21:53 Mineral Oil/Petrolatum, White Ophth Oint 3.5 Gm OU Q4HR PRN Dry Eye(s) Ondansetron HCl 4 mg 11/15/20 23:55 Ondansetron 4 Mg/2 Ml Inj IV Q8H PRN Nausea And Vomiting Prednisone 10 mg 12/19/20 10:00 Prednisone 10 Mg Tab PO 12/22/20 10:01 QDAY RAEANN Senna/Docusate Sodium 2 tab 12/03/20 13:00 12/18/20 22:11 Sennosides/Docusate Sodium 8.6/50 Mg Tab PO 2 tab BID RAEANN Administration Simple Syrup 15 ml 11/23/20 11:53 Simple Syrup 15 Ml FEEDTUBE PRN PRN Hypoglycemia Simple Syrup 30 ml 11/23/20 11:53 Simple Syrup 15 Ml FEEDTUBE PRN PRN Hypoglycemia Sodium Bicarbonate 325 mg 11/23/20 11:53 12/05/20 23:46 Sodium Bicarbonate 325 Mg Tab FEEDTUBE 325 mg PRN PRN Administration For Clogged Feeding Tube Sodium Chloride 10 ml 11/16/20 10:00 12/18/20 23:44 Sodium Chloride 0.9% 10 Ml Flush Syringe IV 10 ml BID RAEANN Administration Sodium Chloride 10 ml 11/15/20 23:55 12/03/20 00:21 Sodium Chloride 0.9% 10 Ml Flush Syringe IV 10 ml PRN PRN Administration LINE FLUSH Nutrition/Malnutrition Assess - Dietary Evaluation Nutrition/Malnutrition Findings: Nutrition Notes Start: 11/20/20 12:03 Freq: Status: Active Protocol: Document 12/16/20 12:37 AL (Rec: 12/16/20 12:44 AL [id number]) Co-Sign 12/16/20 12:37 LP Nutrition Notes Initial or Follow up Reassessment Current Diagnosis Diabetes,Sepsis,Respiratory Failure Other Pertinent Diagnosis Bilat pneu, COVID-19 (+) Current Diet Glucerna 1.2 at 60 ml/hr Labs/Tests BG 203 Pertinent Medications Solumedrol Levophed Height 5 ft 6 in Weight 78.3 kg Usual Body Weight 80.5 kg [place] Body Weight (kg) 64.54 BMI 27.8 Weight change and time frame 10% wt loss/ 7days noted. Weight Status Overweight Subjective/Other Information FU for TF tolerance. Pt tolerating TF at 60 ml/hr ( goal rate). Will increase to 65 ml/hr to reflect wt change. Percent of energy/protein needs met: 100%/100% Burn Absent Trauma Absent GI Symptoms Last BM Difficulty In Swallowing,Chewing Current % PO Negligible Minimum of two criteria Yes Energy Intake (severe) < or equal to 50% Estimated Energy Requirement > or equal to 5 days Interpretation of Weight Loss (severe) >2% in 1 week Fluid Accumulation Moderate to Severe (severe) #3 Nutrition Diagnosis Inadequate oral intake Diagnosis Progress(for reassessment Continues documentation) #2 Nutrition Diagnosis Malnutrition Diagnosis Progress(for reassessment Continues documentation) #1 Nutrition Diagnosis Unintended weight loss Diagnosis Progress(for reassessment Continues documentation) Is patient on ventilator? Yes Is Patient Ambulatory and/or Out of Bed No REE-([facility]-confined to bed) 2091.706 Calculation Used for Recommendations [facility] Additional Notes Protein: 87-145 g/day (1.2-2g/ kg) Fluid: 1ml/kcal or per MD Nutrition Intervention Change Diet Order: Continue TF Nutrition Support: Glucerna 1.2 at 65 ml/hr. Flush 125 ml q4h Kcal 1,872 Protein (gm) 93 Fluid (mL) 1,255 Goal #1 TF Goal #2 Meet at least 75% of energy and protein needs via TF Anticipated Discharge Needs: Unknown at the time Follow-Up By: 12/21/20 Additional Comments FU for TF tolerance
[2020-12-18] MEDS ORDERED: fentaNYL 100 MCG/2 ML INJ IV PRN (17:19)
[2020-12-18] MEDS ORDERED: fentaNYL DRIP Premix 2,000 MCG/100 ML BAG IV SCH (18:00)
[2020-12-18] MEDS: INSULIN GLARGINE 100 UNITS/ML SUB-Q SCH (22:12)
[2020-12-18] MEDS: ENOXAPARIN 40 MG/0.4 ML INJ SUB-Q SCH (22:12)
[2020-12-19] MEDS: fentaNYL DRIP Premix 2,000 MCG/100 ML BAG IV SCH ×4 (01:42→21:12)
[2020-12-19] MEDS: VANCOMYCIN 1,500 MG in SODIUM CHLORIDE 0.9% 500 ML 500 ML IV SCH ×2 (03:57→15:39)
[2020-12-19] MEDS: CEFEPIME/NS 2 GM/100 ML 2 GM/100 ML BAG IV SCH ×3 (05:59→21:13)
[2020-12-19] MEDS: INSULIN LISPRO 100 UNIT/ML SUB-Q SCH ×3 (06:07→18:30)
[2020-12-19 07:48] LABS: Blood Urea Nitrogen 11 mg/dL (9-20); Calcium 7.6 mg/dL (8.4-10.2); Hemolysis Index 16
[2020-12-19 07:49] LABS: BUN/Creatinine Ratio 55
[2020-12-19] MEDS: MIDAZOLAM 100 MG in SODIUM CHLORIDE 0.9% 80 ML IV SCH (08:12)
--- NOTE | 2020-12-19 09:52 | Progress Note ---
Assessment and Plan Assessment and plan: 59-year-old female who is smoker who presented to [facility] with shortness of breath cough fever weakness for 1 to 2 days prior to arrival. Per EMS the patient was severely hypoxic with saturations in the low 80s. With all oxygen and nonrebreather came down to low 90s. ID, pulmonary, CCM were consulted. Cultures / tracheal aspirate with MRSA, / blood cultures x2 with no growth to date, / sputum culture with Klebsiella pneumonia, 12/06 Covid PCR positive, 12/13 Covid PCR positive, Septic Shock COVID-19 pneumonia Acute hypoxic hypercapnic respiratory failure Bilateral pneumothorax Pneumomediastinum with subcutaneous emphysema Elevated D-dimer Transaminitis secondary to Covid 19 Klebsiella pneumonia Type 2 diabetes mellitus 2/: Patient continues on BiPAP throughout the night. Labs are remarkable for hypoxia with improving renal function but lactic acidosis without fever. CTA has been ordered to rule out pulmonary embolism. I agree with increasing enoxaparin to twice daily full dose for empiric treatment of pulmonary embolism. Will obtain ID consultation on further evaluation for possible underlying pneumonia versus COVID-19. We will also obtain echocardiogram for evaluation. Will discontinue fluids at this time. 2/2; Continue supportive care, Patient remains with very guarded prognosis, remains on BiPAP, continues on Remdesivir, and steroids. Will continue anticoa gulation, unable to get CTA Chest due to patients unstable clinical status. Will adjust insulin for better blood glucose 2/3: Continues on BIPAP, no clear improvement at this time. Will continue ster oids therapy Remdesivir and also Full anticoagulation at this time. Will update family. Discussed with Respiratory Medicine Physician. 2/4: Taking a break from the BiPAP on high flow and nonrebreather 100% with saturation of 90% becomes hypoxic with any movement. Respiratory Medicine Physician input noted will get a dose of Lasix today. Will await a discussion with ID for possibly increasing steroid. I updated Patient's Cousin, Tayla Esquivel who is the emergency wash crew person. Blood sugar remains fluctuating secondary to steriods, Encouraged Prone positioning. Noted with mild hyponatremia we will continue to monitor and manage 2/5: Continue supportive care wean oxygen as tolerated prognosis remains guarded. Encouraged to progress as tolerated. Awaiting labs today. Discussed with nursing staff and patient at bedside. 2/6: Discontinued Dexamethasone as Solumedrol started secondary to increased oxygen demand. Will give additional insulin for better control. Continue oxygen support patient still on high flow. Prognosis still guarded 11/22: Patient was intubated and placed on mechanical ventilation. Continue current medication. Will check a.m. labs today. Noted still with hypotension. Doubt septic shock at this time as patient has no new fever. Will adjust insulin for better blood sugar control. 11/23: Patient admitted with COVID-19 despite all efforts patient remains severely hypoxic and now is intubated. Respiratory Medicine Physician input noted. Blood pressure marginal at this time. Very poor prognosis. Continue Solu-Medrol. 11/24. Patient remains very hypoxic. Blood pressure borderline. Plan for initiation of paralytic agents as per dye blender. Patient may need to be transferred if no improvement. 11/26. Off paralytics. Remains intubated. On steroids. Prognosis is poor. 11/27. Chest xray shows pneumomediastinum and subcutaneous emphysema. Surgery consulted. Plan for chest tube placement. Sputum culture grew MRSA. Patient started on vancomycin per ID. 11/28. Right chest tube placed yesterday by surgery. Repeat chest x-ray showed left small pneumothorax. Plan for chest tube placement on the left today. Remains on paralytic agents. 11/29. Remains intubated on vent. Had left chest tube placed yesterday. Vitals reviewed. Critical care following 11/30/ Remains on mechanical ventilation. Worsening hypoxia. Bilateral chest tubes in place. Vitals reviewed. Labs reviewed 12/01: Chest tube and mechanical ventilation remains in place, poor prognosis, FIO2 remains at 90%, adjust insulin for better blood glucose control 12/02: Patient remains on full ventilatory support and steroids, still with worsening leukocytosis ?inflammatory or infectious vs steroids. Continue vancomycin. 12/03; slowly weaning, 12/04: Still on the vent FiO2 down to 65% PEEP remains at 18. Still with poor prognosis. 12/05: Patient continues on full ventilatory support per dye blender PEEP remains at 18. Still with hypercapnic respiratory failure. FiO2 down to 60% this morning. Chest tube to suction still weaning off steroids in the deliberation ongoing for possible a third chest tube as last documentation by surgery shows no plan for it at this time. Continue to manage insulin for better blood sugar control. 12/06:weaned down to 60%, continue supportive care, unable to wean, 12/07; patient remains intubated on ventilatory support, chest tubes in place trach and PEG when patient's Covid test is negative,Per surgery. 12/08; Patient remains intubated remains with hypercapnia and hypoxia. Chest tube still remain in place. He is off antibiotics at this time. Continue steroids which is likely resultant to the leukocytosis. Respiratory Medicine Physician and surgeon following ID input is noted. Prognosis remains guarded to poor 12/10; patient remains intubated on vent, unable to wean awaiting trach and PEG when Covid test is negative, Continue current management 12/11; patient awaiting trach and PEG when Covid test is negative, vent dependent, poor prognosis 12/12; clinically no change, vent dependent, Patient is critically ill with very poor prognosis, awaiting trach and PEG when COVID-19 test turns negative. Plan discussed with nursing staff. Caregivers have discussed with patient's family periodically 12/13: Patient is critically ill with very poor prognosis, awaiting trach and PEG when COVID-19 test turns negative. Plan discussed with nursing staff. Caregivers have discussed with patient's family periodically 12/14: Increase UOP which we will monitor and replete as needed. Patient remain hypoxemic on ABG despite 100 FiO2, remains on fentanyl, precedex, versed and levo gtt. 12/15: Patient remains sedated on fentanyl at 3 mcg, Versed at 30 mg, dexamethasone 0.3 and was on Levophed 6 mcg this morning. Patient's vent settings rate of 30, tidal volume 425, PEEP of 18, FiO2 of 85. RT attempted to wean as tolerated. No acute events reported overnight. Bilateral chest tubes to wall suction. 12/16: Overnight the patient was noted to be bradycardic, Precedex drip was increased to 0.6/fentanyl to 4 mcg/Versed 5 mg, bilateral chest tube to suction. Current vent settings for 425/30/18/0.75, RT to wean as tolerated 12/17: Patient's T-max overnight was 101.2, obtain CXR today, blood culture x2 per ID. Patient remains on fentanyl, Versed, Precedex and Levophed. Current vent settings AC 425/30/18/0.75, RT to wean as tolerated. Continue steroid taper. 12/18: Patient remains sedated on fentanyl, Versed, Precedex and has vasopressor support of Levophed, current vent settings 425/30/18/0.75 with bilateral chest tubes to wall suction. Patient's blood culture from 12/17 grew gram-positive cocci in pairs and chains however the patient is on vancomycin and cefepime. We will continue to follow for speciation and sensitivity. 12/19: Unfortunately remains on full ventilatory support prognosis remains very poor. No new fever however since 12/17. Continue to follow cultures not finalized yet. Antibiotics per ID critical care management input noted. Patient remains on high FiO2 and PEEP at this time. The high probability of a clinically significant, sudden or life threatening deterioration of the [multi] system(s) required my full and direct attention, intervention and personal management. The aggregate critical care time was [35] minutes. This time is in addition to time spent performing reported procedures but includes the following: [x] Data Review and interpretation [x] Patient assessment and monitoring of vital signs [x] Documentation [x] Medication orders and management History Interval history: Patient remains intubated, sedated, and with bilateral chest tubes. No adverse event reported to me overnight from nursing staff. No new fever noted. Hospitalist Physical - Physical exam Narrative exam: VITAL SIGNS: Reviewed. GENERAL: The patient appears normally developed, chronically ill-appearing sedated, generalized anasarca puffiness of the face HEAD: No signs of head trauma. EYES: Pupils are equal. EARS: Unable to examine MOUTH: Oropharynx with ET tube in place mild ulceration pressure lower lip NECK: No adenopathy, no JVD. CHEST: Chest with diminished breath sounds bilaterally. Chest tubes in place no wheezes, rales, or rhonchi. CARDIAC: Regular rate and rhythm. S1 and S2, without murmurs, gallops, or rubs. VASCULAR: Trace edema. Peripheral pulses normal and equal in all extremities. ABDOMEN: Soft, non tender and non distended. No rebound or guarding, and no masses palpated. Bowel Sounds normal. MUSCULOSKELETAL: Extremities without clubbing, cyanosis. Trace edema. NEUROLOGIC EXAM: Sedated PSYCHIATRIC: Sedated SKIN: detail exam as documented in skin assessment - Constitutional Vitals: Temp Pulse Resp BP Pulse Ox 99 F 88 29 H 85/50 96 12/19/20 03:28 12/19/20 08:23 12/19/20 06:00 12/19/20 08:23 12/19/20 08:23 General appearance: Present: no acute distress, well-nourished, other (Vent dependent) HEART Score - HEART Score Troponin: Troponin T < 0.010 ng/mL (0.00-0.029) 12/11/20 06:30 Results - Labs CBC & Chem 7: 12/18/20 04:32 12/19/20 Unknown Labs: Laboratory Last Values WBC 6.2 K/mm3 (4.5-11.0) 12/18/20 04:32 RBC 2.88 M/mm3 (3.65-5.03) L 12/18/20 04:32 Hgb 8.6 gm/dl (11.8-15.2) L 12/18/20 04:32 Hct 26.0 % (35.5-45.6) L 12/18/20 04:32 MCV 90 fl (84-94) 12/18/20 04:32 MCH 30 pg (28-32) 12/18/20 04:32 MCHC 33 % (32-34) 12/18/20 04:32 RDW 15.6 % (13.2-15.2) H 12/18/20 04:32 Plt Count 265 K/mm3 (140-440) 12/18/20 04:32 Lymph % (Auto) 2.0 % (13.4-35.0) L 11/27/20 06:25 Weakley % (Auto) 5.2 % (0.0-7.3) 11/27/20 06:25 Eos % (Auto) 0.0 % (0.0-4.3) 11/27/20 06:25 Baso % (Auto) 0.1 % (0.0-1.8) 11/27/20 06:25 Lymph # (Auto) 0.3 K/mm3 (1.2-5.4) L 11/27/20 06:25 Weakley # (Auto) 0.7 K/mm3 (0.0-0.8) 11/27/20 06:25 Eos # (Auto) 0.0 K/mm3 (0.0-0.4) 11/27/20 06:25 Baso # (Auto) 0.0 K/mm3 (0.0-0.1) 11/27/20 06:25 Add Manual Diff Complete 12/14/20 04:35 Total Counted 100 12/14/20 04:35 Seg Neutrophils % Tissue Recovery Technician 12/14/20 04:35 Seg Neuts % (Manual) 93.0 % (40.0-70.0) H 12/14/20 04:35 Band Neutrophils % 2.0 % 12/13/20 11:30 Lymphocytes % (Manual) 3.0 % (13.4-35.0) L 12/14/20 04:35 Monocytes % (Manual) 4.0 % (0.0-7.3) 12/14/20 04:35 Nucleated RBC % Not Reportable 12/14/20 04:35 Seg Neutrophils # 12.7 K/mm3 (1.8-7.7) H 11/27/20 06:25 Seg Neutrophils # Man 7.8 K/mm3 (1.8-7.7) H 12/14/20 04:35 Band Neutrophils # 0.0 K/mm3 12/14/20 04:35 Lymphocytes # (Manual) 0.3 K/mm3 (1.2-5.4) L 12/14/20 04:35 Abs React Lymphs (Man) 0.0 K/mm3 12/14/20 04:35 Monocytes # (Manual) 0.3 K/mm3 (0.0-0.8) 12/14/20 04:35 Eosinophils # (Manual) 0.0 K/mm3 (0.0-0.4) 12/14/20 04:35 Basophils # (Manual) 0.0 K/mm3 (0.0-0.1) 12/14/20 04:35 Metamyelocytes # 0.0 K/mm3 12/14/20 04:35 Myelocytes # 0.0 K/mm3 12/14/20 04:35 Promyelocytes # 0.0 K/mm3 12/14/20 04:35 Blast Cells # 0.0 K/mm3 12/14/20 04:35 WBC Morphology Not Reportable 12/14/20 04:35 Hypersegmented Neuts Not Reportable 12/14/20 04:35 Hyposegmented Neuts Not Reportable 12/14/20 04:35 Hypogranular Neuts Not Reportable 12/14/20 04:35 Smudge Cells Not Reportable 12/14/20 04:35 Toxic Granulation Not Reportable 12/14/20 04:35 Toxic Vacuolation Not Reportable 12/14/20 04:35 Dohle Bodies Not Reportable 12/14/20 04:35 Pelger-Huet Anomaly Not Reportable 12/14/20 04:35 Tony Rods Not Reportable 12/14/20 04:35 Platelet Estimate Consistent w auto 12/14/20 04:35 Clumped Platelets Not Reportable 12/14/20 04:35 Plt Clumps, EDTA Not Reportable 12/14/20 04:35 Large Platelets Not Reportable 12/14/20 04:35 Giant Platelets Not Reportable 12/14/20 04:35 Platelet Satelliting Not Reportable 12/14/20 04:35 Plt Morphology Comment Not Reportable 12/14/20 04:35 RBC Morphology Not Reportable 12/14/20 04:35 Dimorphic RBCs Not Reportable 12/14/20 04:35 Polychromasia Not Reportable 12/14/20 04:35 Hypochromasia Few 12/14/20 04:35 Poikilocytosis Not Reportable 12/14/20 04:35 Anisocytosis Few 12/14/20 04:35 Microcytosis Not Reportable 12/14/20 04:35 Macrocytosis Not Reportable 12/14/20 04:35 Spherocytes Not Reportable 12/14/20 04:35 Pappenheimer Bodies Not Reportable 12/14/20 04:35 Sickle Cells Not Reportable 12/14/20 04:35 Target Cells Not Reportable 12/14/20 04:35 Tear Drop Cells Not Reportable 12/14/20 04:35 Ovalocytes Not Reportable 12/14/20 04:35 Stomatocytes 1+ 12/03/20 04:35 Helmet Cells Not Reportable 12/14/20 04:35 Cabrera-[place]aco Bodies Not Reportable 12/14/20 04:35 Blencoe Rings Not Reportable 12/14/20 04:35 Moclips Cells Not Reportable 12/14/20 04:35 Bite Cells Not Reportable 12/14/20 04:35 Crenated Cell Not Reportable 12/14/20 04:35 Elliptocytes Not Reportable 12/14/20 04:35 Acanthocytes (Spur) Not Reportable 12/14/20 04:35 Rouleaux Not Reportable 12/14/20 04:35 Hemoglobin C Crystals Not Reportable 12/14/20 04:35 Schistocytes Not Reportable 12/14/20 04:35 Malaria parasites Not Reportable 12/14/20 04:35 Yovani Bodies Not Reportable 12/14/20 04:35 Hem Pathologist Commnt No 12/14/20 04:35 D-Dimer 926.11 ng/mlDDU (0-234) H 11/26/20 06:04 ABG pH 7.370 (7.320-7.450) 12/18/20 03:56 POC ABG pCO2 78.0 mmHg (32.0-48.0) H 12/18/20 03:56 ABG pCO2 81.3 mm Hg 12/08/20 04:12 POC ABG pO2 52.3 mmHg (83-108) L 12/18/20 03:56 ABG pO2 69.7 mm Hg (80.0-90.0) L 12/08/20 04:12 POC ABG HCO3 44.1 12/18/20 03:56 ABG HCO3 50.1 mmol/L (20.0-26.0) H 12/08/20 04:12 ABG O2 Saturation 95.4 % (95.0-99.0) 12/08/20 04:12 ABG O2 Content 13.0 (0.0-44) 12/07/20 05:20 POC ABG Base Excess 15.5 12/18/20 03:56 ABG Base Excess 21.6 mmol/L (-2.0-3.0) H 12/08/20 04:12 ABG Hemoglobin 11.7 (12.0-17.5) L 12/18/20 03:56 ABG Oxyhemoglobin 84.9 (94-98) L 12/18/20 03:56 ABG Carboxyhemoglobin 2.0 % (0.0-5.0) 12/08/20 04:12 ABG Methemoglobin 0.3 (0.0-1.5) 12/18/20 03:56 ABG Sodium 131.6 mmol/L (136.0-145.0) L 12/18/20 03:56 ABG Potassium 4.2 mmol/L (3.40-4.50) 12/18/20 03:56 ABG Chloride 89.0 mmol/L (98-107) L 12/18/20 03:56 ABG Glucose 191 mg/dL (65-95) H 12/18/20 03:56 Oxyhemoglobin 93.2 % (95.0-99.0) L 12/08/20 04:12 Carboxyhemoglobin 1.3 (0.5-1.5) 12/18/20 03:56 FiO2 75.0 12/18/20 03:56 Sodium 133 mmol/L (137-145) L 12/19/20 Unknown Potassium 4.2 mmol/L (3.6-5.0) 12/19/20 Unknown Chloride 89.9 mmol/L (98-107) L 12/19/20 Unknown Carbon Dioxide 39 mmol/L (22-30) H 12/19/20 Unknown Anion Gap 8 mmol/L 12/19/20 Unknown BUN 11 mg/dL (9-20) 12/19/20 Unknown Creatinine 0.2 mg/dL (0.8-1.3) L 12/19/20 Unknown Estimated GFR > 60 ml/min 12/19/20 Unknown BUN/Creatinine Ratio 55 % 12/19/20 Unknown Glucose 197 mg/dL (75-100) H 12/19/20 Unknown POC Glucose 166 mg/dL (70-105) H 12/19/20 05:26 Hemoglobin A1c 11.7 % (4-6) H 11/16/20 05:29 Lactic Acid 2.60 mmol/L (0.7-2.0) H* 11/16/20 05:29 Calcium 7.6 mg/dL (8.4-10.2) L 12/19/20 Unknown Phosphorus 2.60 mg/dL (2.5-4.5) 12/17/20 17:25 Magnesium 1.60 mg/dL (1.7-2.3) L 12/17/20 17:25 Ferritin 778.8 ng/mL (30.0-300.0) H 11/26/20 04:00 Total Bilirubin 0.40 mg/dL (0.1-1.2) 12/17/20 17:25 AST 29 units/L (5-40) 12/17/20 17:25 ALT 47 units/L (7-56) 12/17/20 17:25 Alkaline Phosphatase 119 units/L (35-129) 12/17/20 17:25 Lactate Dehydrogenase 288 units/L (91-180) H 11/26/20 04:00 Total Creatine Kinase 47 units/L (55-170) L 12/17/20 17:25 CK-MB (CK-2) 1.8 ng/mL (0.0-4.0) 12/17/20 17:25 CK-MB (CK-2) Rel Index 3.8 (0-4) 12/17/20 17:25 Troponin T < 0.010 ng/mL (0.00-0.029) 12/11/20 06:30 C-Reactive Protein 1.40 mg/dL (0.00-1.30) H 11/26/20 04:00 NT-Pro-B Natriuret Pep 107.2 pg/mL (0-900) 11/17/20 10:21 Total Protein 6.2 g/dL (6.3-8.2) L 12/17/20 17:25 Albumin 2.1 g/dL (3.9-5) L 12/17/20 17:25 Albumin/Globulin Ratio 0.5 % 12/17/20 17:25 Triglycerides 150 mg/dL (2-149) H 12/12/20 05:16 Procalcitonin 0.16 ng/mL (<0.15) 12/12/20 05:16 Arterial Blood Glucose 191 mg/dL (65-95) H 12/18/20 03:56 Arterial Blood Ionized Calcium 4.4 mg/dL (4.6-5.3) L 12/18/20 03:56 Urine Color Faustina (Yellow) 11/16/20 01:45 Urine Turbidity Slightly-cloudy (Clear) 11/16/20 01:45 Urine pH 6.0 (5.0-7.0) 11/16/20 01:45 Ur Specific [place] 1.037 (1.003-1.030) H 11/16/20 01:45 Urine Protein 30 mg/dl mg/dL (Negative) 11/16/20 01:45 Urine Glucose (UA) >=500 mg/dL (Negative) 11/16/20 01:45 Urine Ketones 20 mg/dL (Negative) 11/16/20 01:45 Urine Blood Neg (Negative) 11/16/20 01:45 Urine Nitrite Neg (Negative) 11/16/20 01:45 Urine Bilirubin Neg (Negative) 11/16/20 01:45 Urine Urobilinogen 2.0 mg/dL (<2.0) 11/16/20 01:45 Ur Leukocyte Esterase Neg (Negative) 11/16/20 01:45 Urine WBC (Auto) 2.0 /HPF (0.0-6.0) 11/16/20 01:45 Urine RBC (Auto) 1.0 /HPF (0.0-6.0) 11/16/20 01:45 Urine Bacteria (Auto) 1+ /HPF (Negative) 11/16/20 01:45 Urine Mucus 3+ /HPF 11/16/20 01:45 Vancomycin Trough 4.0 ug/mL (5.0-20.0) L 11/29/20 15:40 Coronavirus (PCR) Positive (Negative) A 12/13/20 10:00 Hepatitis A IgM Ab Non-reactive (NonReactive) 12/17/20 21:40 Hep Bs Antigen Non-reactive (Negative) 12/17/20 21:40 Hep B Core IgM Ab Non-reactive (NonReactive) 12/17/20 21:40 Hepatitis C Antibody Non-reactive (NonReactive) 12/17/20 21:40 HIV 1&2 Antibody Rapid Non react (Non React) 12/17/20 21:40 HIV P24 Antigen Non react (Non React) 12/17/20 21:40 Microbiology: Microbiology 12/17/20 Unknown Peripheral/Venous Blood Culture - Preliminary 12/17/20 Unknown Peripheral/Venous Blood Culture - Preliminary 12/17/20 Unknown Tracheal Aspirate Sputum Culture - Preliminary 12/17/20 21:00 Urine,Gupta Port Urine Culture - Preliminary - Diagnostic Impressions Diagnostic Impressions: Echocardiogram 11/16/20 10:34 Transthoracic Echocardiogram Indication: Shortness of breath-COVID BP: 108/77 HR: 92 Conclusions *Global left ventricular systolic function is normal. *The estimated ejection fraction is 60-65%. *Mild to moderate concentric left ventricular hypertrophy is observed. *There is trace of mitral regurgitation. *There is mild to moderate tricuspid regurgitation. *There is evidence of mild pulmonary hypertension. *The right ventricular systolic pressure is calculated at 31 mmHg. Findings Left Ventricle: The left ventricular chamber size is normal. Mild to moderate concentric left ventricular hypertrophy is observed. Global left ventricular systolic function is normal. The estimated ejection fraction is 60-65%. Left Atrium: The left atrial chamber size is normal. Right Ventricle: The right ventricular cavity size is normal. The right ventricular global systolic function is normal. Right Atrium: The right atrial cavity size is normal. Aortic Valve: The aortic valve is trileaflet. There is no evidence of aortic regurgitation. There is no evidence of aortic stenosis. Mitral Valve: The mitral valve leaflets appear normal. There is trace of mitral regurgitation. There is no evidence of mitral stenosis. Tricuspid Valve: The tricuspid valve leaflets are normal. There is mild to moderate tricuspid regurgitation. The right ventricular systolic pressure is calculated at 31 mmHg. There is evidence of mild pulmonary hypertension. Pulmonic Valve: There is trace pulmonic regurgitation. Pericardium: There is no pericardial effusion. Aorta: There is no dilatation of the ascending aorta. There is no dilatation of the aortic root. Venous: The inferior vena cava appears normal in size. Measurements Chambers 2D Name Value Normal Range IVSd (2D) 0.81 cm (0.6 - 1.1) LVPWd (2D) 0.79 cm (0.6 - 1.1) LVIDd (2D) 4.22 cm (3.7 - 5.6) LVIDs (2D) 3.1 cm (2 - 3.8) LV FS (2D) 26.71 % - EF Teichholz (2D) 52.55 % - Ao root diameter (2D) 3.34 cm (2 - 3.7) Volumes/Mass Name Value Normal Range LA ESV SP 4CH (A/L) 10.87 ml - LA ESV SP 2CH (A/L) 18.74 ml - LA ESV BP (A/L) 16.38 ml - LA ESV BP (A/L) index 8.62 ml/m2 - LA ESV SP 4CH (MOD) 10.32 ml - LA ESV SP 2CH (MOD) 17.66 ml - LA ESV BP (MOD) 15.12 ml - LA ESV BP (MOD) index 7.96 ml/m2 - Diastolic/Systolic Function Name Value Normal Range MV E-wave Vmax 0.76 m/sec - MV deceleration time 133.63 msec - MV A-wave Vmax 1.1 m/sec - MV E:A ratio 0.69 ratio - Aortic Valve Name Value Normal Range AV Vmax 1.44 m/sec - AV VTI 22.94 cm - AV peak gradient 8.33 mmHg - AV mean gradient 4.73 mmHg - LVOT diameter 2.2 cm - LVOT Vmax 1.04 m/sec - LVOT VTI 18.88 cm - LVOT peak gradient 4.34 mmHg - LVOT mean gradient 2.31 mmHg - SV LVOT 72.05 ml - EVANGELISTA (continuity Vmax) 2.75 cm2 - EVANGELISTA (continuity VTI) 3.14 cm2 - Tricuspid Valve Name Value Normal Range TR Vmax 2.64 m/sec - TR peak gradient 28 mmHg - RAP 3 mmHg - RVSP 31 mmHg - Gupta/IV: Voiding Method Indwelling Catheter IV Catheter Type [Left Peripheral IV Antecubital] Active Medications - Current Medications Current Medications: Generic Name Dose Route Start Last Admin Trade Name Freq PRN Reason Stop Dose Admin Acetaminophen 650 mg 11/15/20 23:55 12/17/20 20:19 Acetaminophen 325 Mg Tab PO 650 mg Q4H PRN Administration Pain MILD(1-3)/Fever >100.5/BUTTS Lipase/Protease/Amylase 1 each 11/23/20 11:53 12/05/20 23:45 Lipase 10,500/Protease 25,000/Amylase 43,750 (Units) Dr Slater FEEDTUBE 1 each PRN PRN Administration For Clogged Feeding Tube Dextrose 25 ml 12/10/20 05:21 12/10/20 05:24 Dextrose 50% In Water (25gm) 50 Ml Syringe IV 25 ml Q30MIN PRN Administration Hypoglycemia Protocol Enoxaparin Sodium 40 mg 12/03/20 22:00 12/18/20 22:12 Enoxaparin 40 Mg/0.4 Ml Inj SUB-Q 40 mg QDAY@2200 RAEANN Administration Famotidine 20 mg 12/16/20 10:00 12/18/20 22:12 Famotidine 20 Mg Tab PO 20 mg BID RAEANN Administration Hydrophilic Ointment 1 applic 11/21/20 21:53 11/30/20 21:33 Lip Therapy Vaseline TP 1 applic Q2HR PRN Administration Dry Lips Midazolam HCl 100 mg/ Sodium 100 mls @ 2 mls/hr 02/06/21 22:00 12/19/20 08:12 Chloride IV 5 mg/hr TITR RAEANN 5 mls/hr Administration Protocol 2 MG/HR Norepinephrine 4 mg in 250 mls @ 7.5 mls/hr 11/22/20 17:00 12/19/20 05:43 Levophed Drip 4 Mg/Ns 250 Ml IV 2 mcg/min TITR RAEANN 7.5 mls/hr Titration Protocol 2 MCG/MIN Propofol 1,000 mg in 100 mls @ 2.175 mls/hr 11/27/20 12:00 12/11/20 17:55 Diprivan 10 Mg/Ml IV 0 mcg/kg/min TITR RAEANN 0 mls/hr Titration Protocol 5 MCG/KG/MIN Dexmedetomidine HCl 400 mcg/ 104 mls @ 4.441 mls/hr 12/10/20 13:00 12/19/20 04:33 Sodium Chloride IV 0.8 mcg/kg/hr TITRATE RAEANN 17.763 mls/hr Administration Protocol 0.2 MCG/KG/HR Cefepime HCl 2 gm in 100 mls @ 200 mls/hr 12/17/20 14:00 12/19/20 05:59 Cefepime/Ns 2 Gm/100 Ml IV 200 mls/hr Q8HR RAEANN Administration Protocol Vancomycin HCl 1,500 mg/ 530 mls @ 333.333 mls/hr 12/17/20 16:00 12/19/20 03:57 Sodium Chloride IV 333.333 mls/hr Q12H RAEANN Administration Fentanyl Citrate 2,000 mcg in 100 mls @ 3.9 mls/hr 12/18/20 19:00 12/19/20 08:11 Fentanyl Drip Premix IV 4 mcg/kg/hr TITR RAEANN 15.6 mls/hr Administration Protocol 1 MCG/KG/HR Insulin Glargine 8 units 12/17/20 13:52 12/18/20 22:12 Insulin Glargine 100 Units/Ml SUB-Q 8 units QHS RAEANN Administration Insulin Human Lispro 0 unit 11/22/20 06:00 12/19/20 06:07 Insulin Lispro 100 Unit/Ml SUB-Q 3 unit Q6HR RAEANN Administration Protocol Metoclopramide HCl 10 mg 11/15/20 23:55 Metoclopramide 10 Mg/2 Ml Inj IV Q6H PRN Nausea And Vomiting Multi-Ingred Cream/Lotion/Oil/Oint 1 applic 11/21/20 21:53 Mineral Oil/Petrolatum, White Ophth Oint 3.5 Gm OU Q4HR PRN Dry Eye(s) Ondansetron HCl 4 mg 11/15/20 23:55 Ondansetron 4 Mg/2 Ml Inj IV Q8H PRN Nausea And Vomiting Prednisone 10 mg 12/19/20 10:00 Prednisone 10 Mg Tab PO 12/22/20 10:01 QDAY RAEANN Senna/Docusate Sodium 2 tab 12/03/20 13:00 12/18/20 22:11 Sennosides/Docusate Sodium 8.6/50 Mg Tab PO 2 tab BID RAEANN Administration Simple Syrup 15 ml 11/23/20 11:53 Simple Syrup 15 Ml FEEDTUBE PRN PRN Hypoglycemia Simple Syrup 30 ml 11/23/20 11:53 Simple Syrup 15 Ml FEEDTUBE PRN PRN Hypoglycemia Sodium Bicarbonate 325 mg 11/23/20 11:53 12/05/20 23:46 Sodium Bicarbonate 325 Mg Tab FEEDTUBE 325 mg PRN PRN Administration For Clogged Feeding Tube Sodium Chloride 10 ml 11/16/20 10:00 12/18/20 23:44 Sodium Chloride 0.9% 10 Ml Flush Syringe IV 10 ml BID RAEANN Administration Sodium Chloride 10 ml 11/15/20 23:55 12/03/20 00:21 Sodium Chloride 0.9% 10 Ml Flush Syringe IV 10 ml PRN PRN Administration LINE FLUSH Nutrition/Malnutrition Assess - Dietary Evaluation Nutrition/Malnutrition Findings: Nutrition Notes Start: 11/20/20 12:03 Freq: Status: Active Protocol: Document 12/16/20 12:37 AL (Rec: 12/16/20 12:44 AL [id number]) Co-Sign 12/16/20 12:37 LP Nutrition Notes Initial or Follow up Reassessment Current Diagnosis Diabetes,Sepsis,Respiratory Failure Other Pertinent Diagnosis Bilat pneu, COVID-19 (+) Current Diet Glucerna 1.2 at 60 ml/hr Labs/Tests BG 203 Pertinent Medications Solumedrol Levophed Height 5 ft 6 in Weight 78.3 kg Usual Body Weight 80.5 kg [place] Body Weight (kg) 64.54 BMI 27.8 Weight change and time frame 10% wt loss/ 7days noted. Weight Status Overweight Subjective/Other Information FU for TF tolerance. Pt tolerating TF at 60 ml/hr ( goal rate). Will increase to 65 ml/hr to reflect wt change. Percent of energy/protein needs met: 100%/100% Burn Absent Trauma Absent GI Symptoms Last BM Difficulty In Swallowing,Chewing Current % PO Negligible Minimum of two criteria Yes Energy Intake (severe) < or equal to 50% Estimated Energy Requirement > or equal to 5 days Interpretation of Weight Loss (severe) >2% in 1 week Fluid Accumulation Moderate to Severe (severe) #3 Nutrition Diagnosis Inadequate oral intake Diagnosis Progress(for reassessment Continues documentation) #2 Nutrition Diagnosis Malnutrition Diagnosis Progress(for reassessment Continues documentation) #1 Nutrition Diagnosis Unintended weight loss Diagnosis Progress(for reassessment Continues documentation) Is patient on ventilator? Yes Is Patient Ambulatory and/or Out of Bed No REE-([facility]-confined to bed) [phone] Calculation Used for Recommendations [facility] Additional Notes Protein: 87-145 g/day (1.2-2g/ kg) Fluid: 1ml/kcal or per MD Nutrition Intervention Change Diet Order: Continue TF Nutrition Support: Glucerna 1.2 at 65 ml/hr. Flush 125 ml q4h Kcal 1,872 Protein (gm) 93 Fluid (mL) 1,255 Goal #1 TF Goal #2 Meet at least 75% of energy and protein needs via TF Anticipated Discharge Needs: Unknown at the time Follow-Up By: 12/21/20 Additional Comments FU for TF tolerance
[2020-12-19] MEDS: predniSONE 10 MG TAB PO SCH (10:02)
[2020-12-19] MEDS: FAMOTIDINE 20 MG TAB PO SCH ×2 (10:02→21:12)
[2020-12-19] MEDS: SENNOSIDES/DOCUSATE SODIUM 8.6/50 MG TAB PO SCH ×2 (10:02→21:12)
[2020-12-19] MEDS: NORepinephrine/NS 4 MG-250 ML 4 MG/250 ML BAG IV SCH (14:25)
[2020-12-19] MEDS: INSULIN GLARGINE 100 UNITS/ML SUB-Q SCH (21:08)
[2020-12-19] MEDS: ENOXAPARIN 40 MG/0.4 ML INJ SUB-Q SCH (21:08)
--- NOTE | 2020-12-19 21:55 | Progress Note ---
Assessment and Plan Imp: 1. Covid-19 2. Viral pneumonia 3. ARDS 4. Acute respiratory failure, hypoxia 5. Sepsis 6. Bilateral spontaneous PTX Rec: 1. ABX per ID; f/u cultures 2. Wean FiO2 followed by PEEP; goal sats 88% or > 3. Wean pressors to keep MAP > 65 4. TFs, pepcid, Lovenox 5. Continue bilateral chest tubes 6. Prognosis guarded to poor 7. Complex decision-making Subjective Date of service: 12/19/20 Principal diagnosis: COVID-19 Interval history: No events. Sedated on precedex and fentanyl. On pressors. Cannot give history. On PEEP of 18 and FiO2 of 85%. Active Medications Acetaminophen (Acetaminophen 325 Mg Tab) 650 mg PO Q4H PRN PRN Reason: Pain MILD(1-3)/Fever >100.5/BUTTS Last Admin: 12/17/20 20:19 Dose: 650 mg Documented by: Lipase/Protease/Amylase (Lipase 10,500/Protease 25,000/Amylase 43,750 (Units) Dr Slater) 1 each FEEDTUBE PRN PRN PRN Reason: For Clogged Feeding Tube Last Admin: 12/05/20 23:45 Dose: 1 each Documented by: Dextrose (Dextrose 50% In Water (25gm) 50 Ml Syringe) 25 ml IV Q30MIN PRN; Protocol PRN Reason: Hypoglycemia Last Admin: 12/10/20 05:24 Dose: 25 ml Documented by: Enoxaparin Sodium (Enoxaparin 40 Mg/0.4 Ml Inj) 40 mg SUB-Q QDAY@2200 [facility] Last Admin: 12/19/20 21:08 Dose: 40 mg Documented by: Famotidine (Famotidine 20 Mg Tab) 20 mg PO BID [facility] Last Admin: 12/19/20 21:12 Dose: 20 mg Documented by: Hydrophilic Ointment (Lip Therapy Vaseline) 1 applic TP Q2HR PRN PRN Reason: Dry Lips Last Admin: 11/30/20 21:33 Dose: 1 applic Documented by: Midazolam HCl 100 mg/ Sodium (Chloride) 100 mls @ 2 mls/hr IV TITR [facility]; Protocol Last Admin: 12/19/20 08:12 Dose: 5 mg/hr, 5 mls/hr Documented by: Norepinephrine (Levophed Drip 4 Mg/Ns 250 Ml) 4 mg in 250 mls @ 7.5 mls/hr IV TITR [facility]; Protocol Last Titration: 12/19/20 17:15 Dose: 4 mcg/min, 15 mls/hr Documented by: Propofol (Diprivan 10 Mg/Ml) 1,000 mg in 100 mls @ 2.175 mls/hr IV TITR [facility]; Protocol Last Titration: 12/11/20 17:55 Dose: 0 mcg/kg/min, 0 mls/hr Documented by: Dexmedetomidine HCl 400 mcg/ (Sodium Chloride) 104 mls @ 4.441 mls/hr IV TITRATE [facility]; Protocol Last Admin: 12/19/20 19:21 Dose: 0.8 mcg/kg/hr, 17.763 mls/hr Documented by: Cefepime HCl (Cefepime/Ns 2 Gm/100 Ml) 2 gm in 100 mls @ 200 mls/hr IV Q8HR [facility]; Protocol Last Admin: 12/19/20 21:13 Dose: 200 mls/hr Documented by: Vancomycin HCl 1,500 mg/ (Sodium Chloride) 530 mls @ 333.333 mls/hr IV Q12H [facility] Last Infusion: 12/19/20 17:50 Dose: Infused Documented by: Fentanyl Citrate (Fentanyl Drip Premix) 2,000 mcg in 100 mls @ 3.9 mls/hr IV TITR [facility]; Protocol Last Admin: 12/19/20 21:12 Dose: 4 mcg/kg/hr, 15.6 mls/hr Documented by: Insulin Glargine (Insulin Glargine 100 Units/Ml) 8 units SUB-Q QHS [facility] Last Admin: 12/19/20 21:08 Dose: 8 units Documented by: Insulin Human Lispro (Insulin Lispro 100 Unit/Ml) 0 unit SUB-Q Q6HR [facility]; Protocol Last Admin: 12/19/20 18:30 Dose: 4 unit Documented by: Metoclopramide HCl (Metoclopramide 10 Mg/2 Ml Inj) 10 mg IV Q6H PRN PRN Reason: Nausea And Vomiting Multi-Ingred Cream/Lotion/Oil/Oint (Mineral Oil/Petrolatum, White Ophth Oint 3.5 Gm) 1 applic OU Q4HR PRN PRN Reason: Dry Eye(s) Ondansetron HCl (Ondansetron 4 Mg/2 Ml Inj) 4 mg IV Q8H PRN PRN Reason: Nausea And Vomiting Prednisone (Prednisone 10 Mg Tab) 10 mg PO QDAY [facility] Stop: 12/22/20 10:01 Last Admin: 12/19/20 10:02 Dose: 10 mg Documented by: Senna/Docusate Sodium (Sennosides/Docusate Sodium 8.6/50 Mg Tab) 2 tab PO BID [facility] Last Admin: 12/19/20 21:12 Dose: 2 tab Documented by: Simple Syrup (Simple Syrup 15 Ml) 15 ml FEEDTUBE PRN PRN PRN Reason: Hypoglycemia Simple Syrup (Simple Syrup 15 Ml) 30 ml FEEDTUBE PRN PRN PRN Reason: Hypoglycemia Sodium Bicarbonate (Sodium Bicarbonate 325 Mg Tab) 325 mg FEEDTUBE PRN PRN PRN Reason: For Clogged Feeding Tube Last Admin: 12/05/20 23:46 Dose: 325 mg Documented by: Sodium Chloride (Sodium Chloride 0.9% 10 Ml Flush Syringe) 10 ml IV BID [facility] Last Admin: 12/19/20 21:13 Dose: 10 ml Documented by: Sodium Chloride (Sodium Chloride 0.9% 10 Ml Flush Syringe) 10 ml IV PRN PRN PRN Reason: LINE FLUSH Last Admin: 12/03/20 00:21 Dose: 10 ml Documented by: Objective Vital Signs - 12hr 12/19/20 12/19/20 12/19/20 10:00 10:15 10:30 Temperature Pulse Rate 87 84 85 Respiratory 30 H 30 H 30 H Rate Blood Pressure 84/49 101/59 104/59 O2 Sat by Pulse 98 97 96 Oximetry 12/19/20 12/19/20 12/19/20 10:45 11:00 11:15 Temperature Pulse Rate 83 86 86 Respiratory 30 H 28 H 29 H Rate Blood Pressure 106/59 109/62 106/61 O2 Sat by Pulse 98 96 96 Oximetry 12/19/20 12/19/20 12/19/20 11:30 11:38 11:45 Temperature Pulse Rate 88 92 H 90 Respiratory 27 H 30 H Rate Blood Pressure 99/61 99/61 114/66 O2 Sat by Pulse 96 92 90 Oximetry 12/19/20 12/19/20 12/19/20 12:00 12:15 12:30 Temperature Pulse Rate 91 H 93 H 92 H Respiratory 30 H 20 22 Rate Blood Pressure 114/64 116/71 122/71 O2 Sat by Pulse 93 94 93 Oximetry 12/19/20 12/19/20 12/19/20 12:45 13:00 13:15 Temperature Pulse Rate 93 H 93 H 102 H Respiratory 30 H 30 H 30 H Rate Blood Pressure 128/73 124/71 125/76 O2 Sat by Pulse 93 94 93 Oximetry 12/19/20 12/19/20 12/19/20 13:30 13:45 14:00 Temperature Pulse Rate 97 H 98 H 96 H Respiratory 28 H 30 H 30 H Rate Blood Pressure 122/72 115/68 111/69 O2 Sat by Pulse 94 93 92 Oximetry 12/19/20 12/19/20 12/19/20 14:15 14:30 14:45 Temperature Pulse Rate 93 H 95 H 96 H Respiratory 30 H 23 30 H Rate Blood Pressure 107/60 129/71 120/69 O2 Sat by Pulse 92 94 91 Oximetry 12/19/20 12/19/20 12/19/20 14:55 15:00 15:15 Temperature Pulse Rate 96 H 97 H 98 H Respiratory 29 H 22 Rate Blood Pressure 120/69 106/67 113/64 O2 Sat by Pulse 92 92 93 Oximetry 12/19/20 12/19/20 12/19/20 15:30 15:45 16:00 Temperature 99.9 F H Pulse Rate 97 H 98 H 94 H Respiratory 29 H 29 H 31 H Rate Blood Pressure 108/65 100/58 92/50 O2 Sat by Pulse 93 94 94 Oximetry 12/19/20 12/19/20 12/19/20 16:15 16:30 16:45 Temperature Pulse Rate 93 H 92 H 87 Respiratory 30 H 30 H 30 H Rate Blood Pressure 93/51 95/51 91/51 O2 Sat by Pulse 95 96 96 Oximetry 12/19/20 12/19/20 12/19/20 17:00 17:15 17:30 Temperature Pulse Rate 88 90 88 Respiratory 30 H 30 H 30 H Rate Blood Pressure 90/48 92/53 93/51 O2 Sat by Pulse 96 96 96 Oximetry 12/19/20 12/19/20 12/19/20 17:45 18:00 18:01 Temperature Pulse Rate 87 86 86 Respiratory 30 H 30 H Rate Blood Pressure 101/54 103/51 103/51 O2 Sat by Pulse 96 96 96 Oximetry 12/19/20 12/19/20 12/19/20 18:15 18:30 18:45 Temperature Pulse Rate 85 84 82 Respiratory 30 H 30 H 30 H Rate Blood Pressure 102/58 92/51 98/55 O2 Sat by Pulse 96 96 96 Oximetry 12/19/20 12/19/20 12/19/20 19:00 19:15 19:26 Temperature Pulse Rate 80 83 83 Respiratory 30 H 30 H Rate Blood Pressure 93/54 95/55 95/55 O2 Sat by Pulse 96 97 97 Oximetry 12/19/20 12/19/20 12/19/20 19:30 19:45 20:00 Temperature 100.8 F H Pulse Rate 79 81 83 Respiratory 30 H 30 H 30 H Rate Blood Pressure 92/53 93/51 98/53 O2 Sat by Pulse 97 97 96 Oximetry 12/19/20 12/19/20 12/19/20 20:15 20:30 20:45 Temperature Pulse Rate 82 81 80 Respiratory 30 H 30 H 30 H Rate Blood Pressure 96/53 92/50 96/53 O2 Sat by Pulse 97 97 97 Oximetry 12/19/20 21:00 Temperature Pulse Rate 80 Respiratory 30 H Rate Blood Pressure 96/54 O2 Sat by Pulse 96 Oximetry Constitutional: other (on vent orally intubated) ENT: other (Now intubated) Ascultation: Bilateral: other (coarse BS bilaterally) Percussion: Bilateral: not dull Cardiovascular: regular rate and rhythm (no mrg) Gastrointestinal: normoactive bowel sounds, soft, non-tender, non-distended Integumentary: normal Extremities: no cyanosis, no edema, pink and warm Neurologic: other (sedated) Psychiatric: other (sedated) CBC and BMP: 12/18/20 04:32 12/19/20 Unknown ABG, PT/INR, D-dimer: ABG ABG pH 7.370 (7.320-7.450) 12/19/20 03:41 POC ABG pCO2 75.4 mmHg (32.0-48.0) H 12/19/20 03:41 ABG pCO2 81.3 mm Hg 12/08/20 04:12 POC ABG pO2 50.7 mmHg (83-108) L 12/19/20 03:41 ABG pO2 69.7 mm Hg (80.0-90.0) L 12/08/20 04:12 POC ABG HCO3 42.6 12/19/20 03:41 ABG O2 Saturation 95.4 % (95.0-99.0) 12/08/20 04:12 PT/INR, D-dimer D-Dimer 926.11 ng/mlDDU (0-234) H 11/26/20 06:04 Abnormal lab findings: Abnormal Labs 11/15/20 11/15/20 11/15/20 10:39 10:39 10:39 WBC 14.3 H RBC 5.17 H Hgb Hct RDW Plt Count Lymph % (Auto) 7.8 L [place] % (Auto) 7.6 H Lymph # (Auto) 1.1 L [place] # (Auto) 1.1 H Baso # (Auto) Seg Neutrophils % 83.3 H Seg Neuts % (Manual) Lymphocytes % (Manual) Seg Neutrophils # 11.9 H Seg Neutrophils # Man Lymphocytes # (Manual) D-Dimer ABG pH POC ABG pCO2 POC ABG pO2 ABG pO2 ABG HCO3 ABG O2 Saturation ABG Base Excess ABG Hemoglobin ABG Oxyhemoglobin ABG Sodium ABG Potassium ABG Chloride ABG Glucose Oxyhemoglobin Carboxyhemoglobin Sodium 128 L Potassium Chloride 96.0 L Carbon Dioxide BUN Creatinine 0.7 L Glucose 238 H POC Glucose Hemoglobin A1c Lactic Acid 4.10 H* Calcium 7.0 L Magnesium Ferritin Total Bilirubin 1.40 H AST 49 H ALT 70 H Alkaline Phosphatase Lactate Dehydrogenase 663 H Total Creatine Kinase C-Reactive Protein 19.80 H Total Protein Albumin 2.9 L Triglycerides Arterial Blood Glucose Arterial Blood Ionized Calcium Ur Specific [place] Vancomycin Trough Coronavirus (PCR) 11/15/20 11/15/20 11/15/20 10:39 10:39 11:20 WBC RBC Hgb Hct RDW Plt Count Lymph % (Auto) [place] % (Auto) Lymph # (Auto) [place] # (Auto) Baso # (Auto) Seg Neutrophils % Seg Neuts % (Manual) Lymphocytes % (Manual) Seg Neutrophils # Seg Neutrophils # Man Lymphocytes # (Manual) D-Dimer > 04028 H ABG pH POC ABG pCO2 29.9 L POC ABG pO2 137.3 H ABG pO2 ABG HCO3 ABG O2 Saturation ABG Base Excess ABG Hemoglobin ABG Oxyhemoglobin ABG Sodium 126.5 L ABG Potassium ABG Chloride ABG Glucose 248 H Oxyhemoglobin Carboxyhemoglobin Sodium Potassium Chloride Carbon Dioxide BUN Creatinine Glucose POC Glucose Hemoglobin A1c Lactic Acid Calcium Magnesium Ferritin 672.8 H Total Bilirubin AST ALT Alkaline Phosphatase Lactate Dehydrogenase Total Creatine Kinase C-Reactive Protein Total Protein Albumin Triglycerides Arterial Blood Glucose 248 H Arterial Blood Ionized Calcium 4.1 L Ur Specific [place] Vancomycin Trough Coronavirus (PCR) 11/15/20 11/15/20 11/16/20 13:41 23:41 01:45 WBC RBC Hgb Hct RDW Plt Count Lymph % (Auto) [place] % (Auto) Lymph # (Auto) [place] # (Auto) Baso # (Auto) Seg Neutrophils % Seg Neuts % (Manual) Lymphocytes % (Manual) Seg Neutrophils # Seg Neutrophils # Man Lymphocytes # (Manual) D-Dimer ABG pH POC ABG pCO2 POC ABG pO2 ABG pO2 ABG HCO3 ABG O2 Saturation ABG Base Excess ABG Hemoglobin ABG Oxyhemoglobin ABG Sodium ABG Potassium ABG Chloride ABG Glucose Oxyhemoglobin Carboxyhemoglobin Sodium Potassium Chloride Carbon Dioxide BUN Creatinine Glucose POC Glucose 284 H Hemoglobin A1c Lactic Acid 2.30 H* Calcium Magnesium Ferritin Total Bilirubin AST ALT Alkaline Phosphatase Lactate Dehydrogenase Total Creatine Kinase C-Reactive Protein Total Protein Albumin Triglycerides Arterial Blood Glucose Arterial Blood Ionized Calcium Ur Specific [place] 1.037 H Vancomycin Trough Coronavirus (PCR) 11/16/20 11/16/20 11/16/20 05:29 05:29 05:29 WBC 12.9 H RBC Hgb Hct RDW Plt Count Lymph % (Auto) 4.5 L [place] % (Auto) Lymph # (Auto) 0.6 L [place] # (Auto) Baso # (Auto) 0.2 H Seg Neutrophils % 89.8 H Seg Neuts % (Manual) Lymphocytes % (Manual) Seg Neutrophils # 11.5 H Seg Neutrophils # Man Lymphocytes # (Manual) D-Dimer ABG pH POC ABG pCO2 POC ABG pO2 ABG pO2 ABG HCO3 ABG O2 Saturation ABG Base Excess ABG Hemoglobin ABG Oxyhemoglobin ABG Sodium ABG Potassium ABG Chloride ABG Glucose Oxyhemoglobin Carboxyhemoglobin Sodium 131 L Potassium Chloride Carbon Dioxide 21 L BUN 23 H Creatinine 0.6 L Glucose 342 H POC Glucose Hemoglobin A1c Lactic Acid 2.60 H* Calcium 7.0 L Magnesium Ferritin Total Bilirubin AST ALT Alkaline Phosphatase Lactate Dehydrogenase Total Creatine Kinase C-Reactive Protein Total Protein Albumin 2.4 L Triglycerides Arterial Blood Glucose Arterial Blood Ionized Calcium Ur Specific [place] Vancomycin Trough Coronavirus (PCR) 11/16/20 11/16/20 11/16/20 05:29 08:11 12:11 WBC RBC Hgb Hct RDW Plt Count Lymph % (Auto) [place] % (Auto) Lymph # (Auto) [place] # (Auto) Baso # (Auto) Seg Neutrophils % Seg Neuts % (Manual) Lymphocytes % (Manual) Seg Neutrophils # Seg Neutrophils # Man Lymphocytes # (Manual) D-Dimer ABG pH POC ABG pCO2 POC ABG pO2 ABG pO2 ABG HCO3 ABG O2 Saturation ABG Base Excess ABG Hemoglobin ABG Oxyhemoglobin ABG Sodium ABG Potassium ABG Chloride ABG Glucose Oxyhemoglobin Carboxyhemoglobin Sodium Potassium Chloride Carbon Dioxide BUN Creatinine Glucose POC Glucose 329 H 320 H Hemoglobin A1c 11.7 H Lactic Acid Calcium Magnesium Ferritin Total Bilirubin AST ALT Alkaline Phosphatase Lactate Dehydrogenase Total Creatine Kinase C-Reactive Protein Total Protein Albumin Triglycerides Arterial Blood Glucose Arterial Blood Ionized Calcium Ur Specific [place] Vancomycin Trough Coronavirus (PCR) 11/16/20 11/16/20 11/16/20 16:13 21:29 Unknown WBC RBC Hgb Hct RDW Plt Count Lymph % (Auto) [place] % (Auto) Lymph # (Auto) [place] # (Auto) Baso # (Auto) Seg Neutrophils % Seg Neuts % (Manual) Lymphocytes % (Manual) Seg Neutrophils # Seg Neutrophils # Man Lymphocytes # (Manual) D-Dimer ABG pH POC ABG pCO2 POC ABG pO2 ABG pO2 ABG HCO3 ABG O2 Saturation ABG Base Excess ABG Hemoglobin ABG Oxyhemoglobin ABG Sodium ABG Potassium ABG Chloride ABG Glucose Oxyhemoglobin Carboxyhemoglobin Sodium Potassium Chloride Carbon Dioxide BUN Creatinine Glucose POC Glucose 257 H 376 H Hemoglobin A1c Lactic Acid Calcium Magnesium Ferritin Total Bilirubin AST ALT Alkaline Phosphatase Lactate Dehydrogenase Total Creatine Kinase C-Reactive Protein Total Protein Albumin Triglycerides Arterial Blood Glucose Arterial Blood Ionized Calcium Ur Specific [place] Vancomycin Trough Coronavirus (PCR) Positive A 11/17/20 11/17/20 11/17/20 07:42 12:07 17:25 WBC RBC Hgb Hct RDW Plt Count Lymph % (Auto) [place] % (Auto) Lymph # (Auto) [place] # (Auto) Baso # (Auto) Seg Neutrophils % Seg Neuts % (Manual) Lymphocytes % (Manual) Seg Neutrophils # Seg Neutrophils # Man Lymphocytes # (Manual) D-Dimer ABG pH POC ABG pCO2 POC ABG pO2 ABG pO2 ABG HCO3 ABG O2 Saturation ABG Base Excess ABG Hemoglobin ABG Oxyhemoglobin ABG Sodium ABG Potassium ABG Chloride ABG Glucose Oxyhemoglobin Carboxyhemoglobin Sodium Potassium Chloride Carbon Dioxide BUN Creatinine Glucose POC Glucose 231 H 380 H 302 H Hemoglobin A1c Lactic Acid Calcium Magnesium Ferritin Total Bilirubin AST ALT Alkaline Phosphatase Lactate Dehydrogenase Total Creatine Kinase C-Reactive Protein Total Protein Albumin Triglycerides Arterial Blood Glucose Arterial Blood Ionized Calcium Ur Specific [place] Vancomycin Trough Coronavirus (PCR) 11/17/20 11/18/20 11/18/20 21:53 04:25 07:45 WBC RBC Hgb Hct RDW Plt Count Lymph % (Auto) [place] % (Auto) Lymph # (Auto) [place] # (Auto) Baso # (Auto) Seg Neutrophils % Seg Neuts % (Manual) Lymphocytes % (Manual) Seg Neutrophils # Seg Neutrophils # Man Lymphocytes # (Manual) D-Dimer ABG pH POC ABG pCO2 POC ABG pO2 ABG pO2 ABG HCO3 ABG O2 Saturation ABG Base Excess ABG Hemoglobin ABG Oxyhemoglobin ABG Sodium ABG Potassium ABG Chloride ABG Glucose Oxyhemoglobin Carboxyhemoglobin Sodium 136 L Potassium Chloride Carbon Dioxide BUN 24 H Creatinine 0.6 L Glucose 212 H POC Glucose 293 H 216 H Hemoglobin A1c Lactic Acid Calcium 7.4 L Magnesium Ferritin Total Bilirubin AST 41 H ALT Alkaline Phosphatase 142 H Lactate Dehydrogenase Total Creatine Kinase C-Reactive Protein Total Protein Albumin 2.3 L Triglycerides Arterial Blood Glucose Arterial Blood Ionized Calcium Ur Specific [place] Vancomycin Trough Coronavirus (PCR) 11/18/20 11/18/20 11/18/20 12:28 15:58 21:37 WBC RBC Hgb Hct RDW Plt Count Lymph % (Auto) [place] % (Auto) Lymph # (Auto) [place] # (Auto) Baso # (Auto) Seg Neutrophils % Seg Neuts % (Manual) Lymphocytes % (Manual) Seg Neutrophils # Seg Neutrophils # Man Lymphocytes # (Manual) D-Dimer ABG pH POC ABG pCO2 POC ABG pO2 ABG pO2 ABG HCO3 ABG O2 Saturation ABG Base Excess ABG Hemoglobin ABG Oxyhemoglobin ABG Sodium ABG Potassium ABG Chloride ABG Glucose Oxyhemoglobin Carboxyhemoglobin Sodium Potassium Chloride Carbon Dioxide BUN Creatinine Glucose POC Glucose 165 H 220 H 311 H Hemoglobin A1c Lactic Acid Calcium Magnesium Ferritin Total Bilirubin AST ALT Alkaline Phosphatase Lactate Dehydrogenase Total Creatine Kinase C-Reactive Protein Total Protein Albumin Triglycerides Arterial Blood Glucose Arterial Blood Ionized Calcium Ur Specific [place] Vancomycin Trough Coronavirus (PCR) 11/19/20 11/19/20 11/19/20 05:35 07:40 12:39 WBC RBC Hgb Hct RDW Plt Count Lymph % (Auto) [place] % (Auto) Lymph # (Auto) [place] # (Auto) Baso # (Auto) Seg Neutrophils % Seg Neuts % (Manual) Lymphocytes % (Manual) Seg Neutrophils # Seg Neutrophils # Man Lymphocytes # (Manual) D-Dimer ABG pH POC ABG pCO2 POC ABG pO2 ABG pO2 ABG HCO3 ABG O2 Saturation ABG Base Excess ABG Hemoglobin ABG Oxyhemoglobin ABG Sodium ABG Potassium ABG Chloride ABG Glucose Oxyhemoglobin Carboxyhemoglobin Sodium 132 L Potassium Chloride Carbon Dioxide BUN 25 H Creatinine 0.5 L Glucose 179 H POC Glucose 149 H 306 H Hemoglobin A1c Lactic Acid Calcium 7.5 L Magnesium Ferritin Total Bilirubin AST ALT Alkaline Phosphatase 139 H Lactate Dehydrogenase Total Creatine Kinase C-Reactive Protein Total Protein Albumin 2.4 L Triglycerides Arterial Blood Glucose Arterial Blood Ionized Calcium Ur Specific [place] Vancomycin Trough Coronavirus (PCR) 11/19/20 11/19/20 11/20/20 16:17 21:25 08:30 WBC RBC Hgb Hct RDW Plt Count Lymph % (Auto) [place] % (Auto) Lymph # (Auto) [place] # (Auto) Baso # (Auto) Seg Neutrophils % Seg Neuts % (Manual) Lymphocytes % (Manual) Seg Neutrophils # Seg Neutrophils # Man Lymphocytes # (Manual) D-Dimer ABG pH POC ABG pCO2 POC ABG pO2 ABG pO2 ABG HCO3 ABG O2 Saturation ABG Base Excess ABG Hemoglobin ABG Oxyhemoglobin ABG Sodium ABG Potassium ABG Chloride ABG Glucose Oxyhemoglobin Carboxyhemoglobin Sodium Potassium Chloride Carbon Dioxide BUN Creatinine Glucose POC Glucose 364 H 347 H 141 H Hemoglobin A1c Lactic Acid Calcium Magnesium Ferritin Total Bilirubin AST ALT Alkaline Phosphatase Lactate Dehydrogenase Total Creatine Kinase C-Reactive Protein Total Protein Albumin Triglycerides Arterial Blood Glucose Arterial Blood Ionized Calcium Ur Specific [place] Vancomycin Trough Coronavirus (PCR) 11/20/20 11/20/20 11/20/20 08:50 11:32 16:19 WBC RBC Hgb Hct RDW Plt Count Lymph % (Auto) [place] % (Auto) Lymph # (Auto) [place] # (Auto) Baso # (Auto) Seg Neutrophils % Seg Neuts % (Manual) Lymphocytes % (Manual) Seg Neutrophils # Seg Neutrophils # Man Lymphocytes # (Manual) D-Dimer ABG pH POC ABG pCO2 POC ABG pO2 ABG pO2 ABG HCO3 ABG O2 Saturation ABG Base Excess ABG Hemoglobin ABG Oxyhemoglobin ABG Sodium ABG Potassium ABG Chloride ABG Glucose Oxyhemoglobin Carboxyhemoglobin Sodium 132 L Potassium Chloride 97.6 L Carbon Dioxide BUN 26 H Creatinine 0.5 L Glucose 201 H POC Glucose 296 H 327 H Hemoglobin A1c Lactic Acid Calcium 7.9 L Magnesium Ferritin Total Bilirubin AST ALT Alkaline Phosphatase 137 H Lactate Dehydrogenase Total Creatine Kinase C-Reactive Protein Total Protein Albumin 2.6 L Triglycerides Arterial Blood Glucose Arterial Blood Ionized Calcium Ur Specific [place] Vancomycin Trough Coronavirus (PCR) 11/20/20 11/21/20 11/21/20 22:09 07:59 13:51 WBC RBC Hgb Hct RDW Plt Count Lymph % (Auto) [place] % (Auto) Lymph # (Auto) [place] # (Auto) Baso # (Auto) Seg Neutrophils % Seg Neuts % (Manual) Lymphocytes % (Manual) Seg Neutrophils # Seg Neutrophils # Man Lymphocytes # (Manual) D-Dimer ABG pH POC ABG pCO2 POC ABG pO2 ABG pO2 ABG HCO3 ABG O2 Saturation ABG Base Excess ABG Hemoglobin ABG Oxyhemoglobin ABG Sodium ABG Potassium ABG Chloride ABG Glucose Oxyhemoglobin Carboxyhemoglobin Sodium Potassium Chloride Carbon Dioxide BUN Creatinine Glucose POC Glucose 311 H 218 H 304 H Hemoglobin A1c Lactic Acid Calcium Magnesium Ferritin Total Bilirubin AST ALT Alkaline Phosphatase Lactate Dehydrogenase Total Creatine Kinase C-Reactive Protein Total Protein Albumin Triglycerides Arterial Blood Glucose Arterial Blood Ionized Calcium Ur Specific [place] Vancomycin Trough Coronavirus (PCR) 11/21/20 11/21/20 11/21/20 16:09 21:34 23:00 WBC RBC Hgb Hct RDW Plt Count Lymph % (Auto) [place] % (Auto) Lymph # (Auto) [place] # (Auto) Baso # (Auto) Seg Neutrophils % Seg Neuts % (Manual) Lymphocytes % (Manual) Seg Neutrophils # Seg Neutrophils # Man Lymphocytes # (Manual) D-Dimer ABG pH 7.206 L POC ABG pCO2 59.3 H POC ABG pO2 76.7 L ABG pO2 ABG HCO3 ABG O2 Saturation ABG Base Excess ABG Hemoglobin ABG Oxyhemoglobin ABG Sodium 133.1 L ABG Potassium ABG Chloride ABG Glucose 320 H Oxyhemoglobin Carboxyhemoglobin Sodium Potassium Chloride Carbon Dioxide BUN Creatinine Glucose POC Glucose 239 H 279 H Hemoglobin A1c Lactic Acid Calcium Magnesium Ferritin Total Bilirubin AST ALT Alkaline Phosphatase Lactate Dehydrogenase Total Creatine Kinase C-Reactive Protein Total Protein Albumin Triglycerides Arterial Blood Glucose 320 H Arterial Blood Ionized Calcium Ur Specific [place] Vancomycin Trough Coronavirus (PCR) 11/22/20 11/22/20 11/22/20 04:52 04:52 04:52 WBC RBC Hgb Hct RDW Plt Count Lymph % (Auto) [place] % (Auto) Lymph # (Auto) [place] # (Auto) Baso # (Auto) Seg Neutrophils % Seg Neuts % (Manual) Lymphocytes % (Manual) Seg Neutrophils # Seg Neutrophils # Man Lymphocytes # (Manual) D-Dimer 1858.36 H ABG pH POC ABG pCO2 POC ABG pO2 ABG pO2 ABG HCO3 ABG O2 Saturation ABG Base Excess ABG Hemoglobin ABG Oxyhemoglobin ABG Sodium ABG Potassium ABG Chloride ABG Glucose Oxyhemoglobin Carboxyhemoglobin Sodium Potassium Chloride Carbon Dioxide BUN Creatinine Glucose POC Glucose Hemoglobin A1c Lactic Acid Calcium Magnesium Ferritin 734.2 H Total Bilirubin AST ALT Alkaline Phosphatase Lactate Dehydrogenase 404 H Total Creatine Kinase C-Reactive Protein 2.80 H Total Protein Albumin Triglycerides Arterial Blood Glucose Arterial Blood Ionized Calcium Ur Specific [place] Vancomycin Trough Coronavirus (PCR) 11/22/20 11/22/20 11/22/20 05:12 05:39 11:50 WBC RBC Hgb Hct RDW Plt Count Lymph % (Auto) [place] % (Auto) Lymph # (Auto) [place] # (Auto) Baso # (Auto) Seg Neutrophils % Seg Neuts % (Manual) Lymphocytes % (Manual) Seg Neutrophils # Seg Neutrophils # Man Lymphocytes # (Manual) D-Dimer ABG pH POC ABG pCO2 POC ABG pO2 51.0 L ABG pO2 ABG HCO3 ABG O2 Saturation ABG Base Excess ABG Hemoglobin ABG Oxyhemoglobin ABG Sodium 131.2 L ABG Potassium 4.6 H ABG Chloride ABG Glucose 317 H Oxyhemoglobin Carboxyhemoglobin Sodium Potassium Chloride Carbon Dioxide BUN Creatinine Glucose POC Glucose 340 H 417 H Hemoglobin A1c Lactic Acid Calcium Magnesium Ferritin Total Bilirubin AST ALT Alkaline Phosphatase Lactate Dehydrogenase Total Creatine Kinase C-Reactive Protein Total Protein Albumin Triglycerides Arterial Blood Glucose 317 H Arterial Blood Ionized Calcium 4.4 L Ur Specific [place] Vancomycin Trough Coronavirus (PCR) 11/22/20 11/22/20 11/22/20 12:22 12:22 17:10 WBC 14.4 H RBC Hgb Hct RDW Plt Count Lymph % (Auto) [place] % (Auto) Lymph # (Auto) [place] # (Auto) Baso # (Auto) Seg Neutrophils % Seg Neuts % (Manual) 98.0 H Lymphocytes % (Manual) Seg Neutrophils # Seg Neutrophils # Man 14.1 H Lymphocytes # (Manual) 0.0 L D-Dimer ABG pH POC ABG pCO2 POC ABG pO2 ABG pO2 ABG HCO3 ABG O2 Saturation ABG Base Excess ABG Hemoglobin ABG Oxyhemoglobin ABG Sodium ABG Potassium ABG Chloride ABG Glucose Oxyhemoglobin Carboxyhemoglobin Sodium 132 L Potassium Chloride Carbon Dioxide BUN 36 H Creatinine 0.6 L Glucose 219 H POC Glucose 157 H Hemoglobin A1c Lactic Acid Calcium 7.2 L Magnesium Ferritin Total Bilirubin AST ALT Alkaline Phosphatase Lactate Dehydrogenase Total Creatine Kinase C-Reactive Protein Total Protein Albumin Triglycerides Arterial Blood Glucose Arterial Blood Ionized Calcium Ur Specific [place] Vancomycin Trough Coronavirus (PCR) 11/22/20 11/22/20 11/22/20 18:33 21:44 23:47 WBC RBC Hgb Hct RDW Plt Count Lymph % (Auto) [place] % (Auto) Lymph # (Auto) [place] # (Auto) Baso # (Auto) Seg Neutrophils % Seg Neuts % (Manual) Lymphocytes % (Manual) Seg Neutrophils # Seg Neutrophils # Man Lymphocytes # (Manual) D-Dimer ABG pH POC ABG pCO2 POC ABG pO2 60.8 L ABG pO2 ABG HCO3 ABG O2 Saturation ABG Base Excess ABG Hemoglobin ABG Oxyhemoglobin 88.1 L ABG Sodium 135.1 L ABG Potassium ABG Chloride ABG Glucose 141 H Oxyhemoglobin Carboxyhemoglobin Sodium Potassium Chloride Carbon Dioxide BUN Creatinine Glucose POC Glucose 117 H 123 H Hemoglobin A1c Lactic Acid Calcium Magnesium Ferritin Total Bilirubin AST ALT Alkaline Phosphatase Lactate Dehydrogenase Total Creatine Kinase C-Reactive Protein Total Protein Albumin Triglycerides Arterial Blood Glucose 141 H Arterial Blood Ionized Calcium Ur Specific [place] Vancomycin Trough Coronavirus (PCR) 11/23/20 11/23/20 11/23/20 04:00 04:00 05:23 WBC 14.4 H RBC Hgb Hct RDW Plt Count Lymph % (Auto) [place] % (Auto) Lymph # (Auto) [place] # (Auto) Baso # (Auto) Seg Neutrophils % Seg Neuts % (Manual) Lymphocytes % (Manual) Seg Neutrophils # Seg Neutrophils # Man Lymphocytes # (Manual) D-Dimer ABG pH POC ABG pCO2 POC ABG pO2 ABG pO2 ABG HCO3 ABG O2 Saturation ABG Base Excess ABG Hemoglobin ABG Oxyhemoglobin ABG Sodium ABG Potassium ABG Chloride ABG Glucose Oxyhemoglobin Carboxyhemoglobin Sodium 136 L Potassium Chloride Carbon Dioxide BUN 33 H Creatinine 0.6 L Glucose 115 H POC Glucose 173 H Hemoglobin A1c Lactic Acid Calcium 7.1 L Magnesium Ferritin Total Bilirubin AST 64 H ALT 75 H Alkaline Phosphatase Lactate Dehydrogenase Total Creatine Kinase C-Reactive Protein Total Protein 5.9 L D Albumin 2.4 L Triglycerides Arterial Blood Glucose Arterial Blood Ionized Calcium Ur Specific [place] Vancomycin Trough Coronavirus (PCR) 11/23/20 11/23/20 11/23/20 05:40 11:27 17:10 WBC RBC Hgb Hct RDW Plt Count Lymph % (Auto) [place] % (Auto) Lymph # (Auto) [place] # (Auto) Baso # (Auto) Seg Neutrophils % Seg Neuts % (Manual) Lymphocytes % (Manual) Seg Neutrophils # Seg Neutrophils # Man Lymphocytes # (Manual) D-Dimer ABG pH POC ABG pCO2 POC ABG pO2 56.5 L ABG pO2 ABG HCO3 ABG O2 Saturation ABG Base Excess ABG Hemoglobin ABG Oxyhemoglobin ABG Sodium ABG Potassium ABG Chloride 109.0 H ABG Glucose 114 H Oxyhemoglobin Carboxyhemoglobin Sodium Potassium Chloride Carbon Dioxide BUN Creatinine Glucose POC Glucose 114 H 136 H Hemoglobin A1c Lactic Acid Calcium Magnesium Ferritin Total Bilirubin AST ALT Alkaline Phosphatase Lactate Dehydrogenase Total Creatine Kinase C-Reactive Protein Total Protein Albumin Triglycerides Arterial Blood Glucose 114 H Arterial Blood Ionized Calcium 4.5 L Ur Specific [place] Vancomycin Trough Coronavirus (PCR) 11/24/20 11/24/20 11/24/20 05:14 05:14 05:14 WBC RBC Hgb Hct RDW Plt Count Lymph % (Auto) [place] % (Auto) Lymph # (Auto) [place] # (Auto) Baso # (Auto) Seg Neutrophils % Seg Neuts % (Manual) Lymphocytes % (Manual) Seg Neutrophils # Seg Neutrophils # Man Lymphocytes # (Manual) D-Dimer 1433.39 H ABG pH POC ABG pCO2 POC ABG pO2 ABG pO2 ABG HCO3 ABG O2 Saturation ABG Base Excess ABG Hemoglobin ABG Oxyhemoglobin ABG Sodium ABG Potassium ABG Chloride ABG Glucose Oxyhemoglobin Carboxyhemoglobin Sodium Potassium Chloride Carbon Dioxide BUN Creatinine Glucose POC Glucose Hemoglobin A1c Lactic Acid Calcium Magnesium Ferritin 997.5 H Total Bilirubin AST ALT Alkaline Phosphatase Lactate Dehydrogenase 463 H Total Creatine Kinase C-Reactive Protein Total Protein Albumin Triglycerides Arterial Blood Glucose Arterial Blood Ionized Calcium Ur Specific [place] Vancomycin Trough Coronavirus (PCR) 11/24/20 11/24/20 11/24/20 05:31 05:36 12:05 WBC RBC Hgb Hct RDW Plt Count Lymph % (Auto) [place] % (Auto) Lymph # (Auto) [place] # (Auto) Baso # (Auto) Seg Neutrophils % Seg Neuts % (Manual) Lymphocytes % (Manual) Seg Neutrophils # Seg Neutrophils # Man Lymphocytes # (Manual) D-Dimer ABG pH POC ABG pCO2 POC ABG pO2 57.2 L ABG pO2 ABG HCO3 ABG O2 Saturation ABG Base Excess ABG Hemoglobin ABG Oxyhemoglobin ABG Sodium ABG Potassium ABG Chloride ABG Glucose 180 H Oxyhemoglobin Carboxyhemoglobin Sodium Potassium Chloride Carbon Dioxide BUN Creatinine Glucose POC Glucose 199 H 143 H Hemoglobin A1c Lactic Acid Calcium Magnesium Ferritin Total Bilirubin AST ALT Alkaline Phosphatase Lactate Dehydrogenase Total Creatine Kinase C-Reactive Protein Total Protein Albumin Triglycerides Arterial Blood Glucose 180 H Arterial Blood Ionized Calcium 4.5 L Ur Specific [place] Vancomycin Trough Coronavirus (PCR) 11/24/20 11/24/20 11/24/20 12:14 17:47 23:47 WBC RBC Hgb Hct RDW Plt Count Lymph % (Auto) [place] % (Auto) Lymph # (Auto) [place] # (Auto) Baso # (Auto) Seg Neutrophils % Seg Neuts % (Manual) Lymphocytes % (Manual) Seg Neutrophils # Seg Neutrophils # Man Lymphocytes # (Manual) D-Dimer ABG pH 7.261 L POC ABG pCO2 59.7 H POC ABG pO2 75.7 L ABG pO2 ABG HCO3 ABG O2 Saturation ABG Base Excess ABG Hemoglobin ABG Oxyhemoglobin 92.5 L ABG Sodium ABG Potassium ABG Chloride 108.0 H ABG Glucose 150 H Oxyhemoglobin Carboxyhemoglobin Sodium Potassium Chloride Carbon Dioxide BUN Creatinine Glucose POC Glucose 223 H 179 H Hemoglobin A1c Lactic Acid Calcium Magnesium Ferritin Total Bilirubin AST ALT Alkaline Phosphatase Lactate Dehydrogenase Total Creatine Kinase C-Reactive Protein Total Protein Albumin Triglycerides Arterial Blood Glucose 150 H Arterial Blood Ionized Calcium Ur Specific [place] Vancomycin Trough Coronavirus (PCR) 11/25/20 11/25/20 11/25/20 03:29 05:07 05:15 WBC 13.9 H RBC Hgb Hct RDW Plt Count Lymph % (Auto) [place] % (Auto) Lymph # (Auto) [place] # (Auto) Baso # (Auto) Seg Neutrophils % Seg Neuts % (Manual) 97.0 H Lymphocytes % (Manual) Seg Neutrophils # Seg Neutrophils # Man 13.5 H Lymphocytes # (Manual) 0.0 L D-Dimer ABG pH 7.272 L POC ABG pCO2 69.0 H POC ABG pO2 132.9 H ABG pO2 ABG HCO3 ABG O2 Saturation ABG Base Excess ABG Hemoglobin ABG Oxyhemoglobin ABG Sodium ABG Potassium ABG Chloride ABG Glucose 174 H Oxyhemoglobin Carboxyhemoglobin Sodium Potassium Chloride Carbon Dioxide BUN Creatinine Glucose POC Glucose 168 H Hemoglobin A1c Lactic Acid Calcium Magnesium Ferritin Total Bilirubin AST ALT Alkaline Phosphatase Lactate Dehydrogenase Total Creatine Kinase C-Reactive Protein Total Protein Albumin Triglycerides Arterial Blood Glucose 174 H Arterial Blood Ionized Calcium Ur Specific [place] Vancomycin Trough Coronavirus (PCR) 11/25/20 11/25/20 11/25/20 05:15 11:25 17:35 WBC RBC Hgb Hct RDW Plt Count Lymph % (Auto) [place] % (Auto) Lymph # (Auto) [place] # (Auto) Baso # (Auto) Seg Neutrophils % Seg Neuts % (Manual) Lymphocytes % (Manual) Seg Neutrophils # Seg Neutrophils # Man Lymphocytes # (Manual) D-Dimer ABG pH POC ABG pCO2 POC ABG pO2 ABG pO2 ABG HCO3 ABG O2 Saturation ABG Base Excess ABG Hemoglobin ABG Oxyhemoglobin ABG Sodium ABG Potassium ABG Chloride ABG Glucose Oxyhemoglobin Carboxyhemoglobin Sodium Potassium Chloride Carbon Dioxide BUN 29 H Creatinine 0.5 L Glucose 161 H POC Glucose 224 H 228 H Hemoglobin A1c Lactic Acid Calcium 7.8 L Magnesium Ferritin Total Bilirubin AST 89 H ALT 129 H Alkaline Phosphatase Lactate Dehydrogenase Total Creatine Kinase C-Reactive Protein Total Protein 5.8 L Albumin 2.5 L Triglycerides Arterial Blood Glucose Arterial Blood Ionized Calcium Ur Specific [place] Vancomycin Trough Coronavirus (PCR) 11/25/20 11/25/20 11/26/20 20:45 23:28 04:00 WBC RBC Hgb Hct RDW Plt Count Lymph % (Auto) [place] % (Auto) Lymph # (Auto) [place] # (Auto) Baso # (Auto) Seg Neutrophils % Seg Neuts % (Manual) Lymphocytes % (Manual) Seg Neutrophils # Seg Neutrophils # Man Lymphocytes # (Manual) D-Dimer ABG pH POC ABG pCO2 POC ABG pO2 ABG pO2 ABG HCO3 ABG O2 Saturation ABG Base Excess ABG Hemoglobin ABG Oxyhemoglobin ABG Sodium ABG Potassium ABG Chloride ABG Glucose Oxyhemoglobin Carboxyhemoglobin Sodium Potassium Chloride Carbon Dioxide BUN Creatinine Glucose POC Glucose 177 H 243 H Hemoglobin A1c Lactic Acid Calcium Magnesium Ferritin 778.8 H Total Bilirubin AST ALT Alkaline Phosphatase Lactate Dehydrogenase Total Creatine Kinase C-Reactive Protein Total Protein Albumin Triglycerides Arterial Blood Glucose Arterial Blood Ionized Calcium Ur Specific [place] Vancomycin Trough Coronavirus (PCR) 11/26/20 11/26/20 11/26/20 04:00 05:34 06:04 WBC RBC Hgb Hct RDW Plt Count Lymph % (Auto) [place] % (Auto) Lymph # (Auto) [place] # (Auto) Baso # (Auto) Seg Neutrophils % Seg Neuts % (Manual) Lymphocytes % (Manual) Seg Neutrophils # Seg Neutrophils # Man Lymphocytes # (Manual) D-Dimer 926.11 H ABG pH POC ABG pCO2 POC ABG pO2 ABG pO2 ABG HCO3 ABG O2 Saturation ABG Base Excess ABG Hemoglobin ABG Oxyhemoglobin ABG Sodium ABG Potassium ABG Chloride ABG Glucose Oxyhemoglobin Carboxyhemoglobin Sodium Potassium Chloride Carbon Dioxide 39 H D BUN 30 H Creatinine 0.5 L Glucose 193 H POC Glucose 178 H Hemoglobin A1c Lactic Acid Calcium 7.7 L Magnesium Ferritin Total Bilirubin AST 65 H ALT 132 H Alkaline Phosphatase Lactate Dehydrogenase 288 H Total Creatine Kinase C-Reactive Protein 1.40 H Total Protein 5.7 L Albumin 2.4 L Triglycerides Arterial Blood Glucose Arterial Blood Ionized Calcium Ur Specific [place] Vancomycin Trough Coronavirus (PCR) 11/26/20 11/26/20 11/26/20 06:04 08:47 11:20 WBC 12.4 H RBC Hgb Hct RDW Plt Count Lymph % (Auto) [place] % (Auto) Lymph # (Auto) [place] # (Auto) Baso # (Auto) Seg Neutrophils % Seg Neuts % (Manual) 98.0 H Lymphocytes % (Manual) 1.0 L Seg Neutrophils # Seg Neutrophils # Man 12.2 H Lymphocytes # (Manual) 0.1 L D-Dimer ABG pH POC ABG pCO2 75.2 H POC ABG pO2 61.9 L ABG pO2 ABG HCO3 ABG O2 Saturation ABG Base Excess ABG Hemoglobin ABG Oxyhemoglobin 90.3 L ABG Sodium ABG Potassium ABG Chloride ABG Glucose 243 H Oxyhemoglobin Carboxyhemoglobin Sodium Potassium Chloride Carbon Dioxide BUN Creatinine Glucose POC Glucose 255 H Hemoglobin A1c Lactic Acid Calcium Magnesium Ferritin Total Bilirubin AST ALT Alkaline Phosphatase Lactate Dehydrogenase Total Creatine Kinase C-Reactive Protein Total Protein Albumin Triglycerides Arterial Blood Glucose 243 H Arterial Blood Ionized Calcium Ur Specific [place] Vancomycin Trough Coronavirus (PCR) 11/26/20 11/26/20 11/26/20 16:20 17:15 23:41 WBC RBC Hgb Hct RDW Plt Count Lymph % (Auto) [place] % (Auto) Lymph # (Auto) [place] # (Auto) Baso # (Auto) Seg Neutrophils % Seg Neuts % (Manual) Lymphocytes % (Manual) Seg Neutrophils # Seg Neutrophils # Man Lymphocytes # (Manual) D-Dimer ABG pH POC ABG pCO2 66.6 H POC ABG pO2 78.1 L ABG pO2 ABG HCO3 ABG O2 Saturation ABG Base Excess ABG Hemoglobin ABG Oxyhemoglobin ABG Sodium ABG Potassium ABG Chloride ABG Glucose 244 H Oxyhemoglobin Carboxyhemoglobin Sodium Potassium Chloride Carbon Dioxide BUN Creatinine Glucose POC Glucose 219 H 210 H Hemoglobin A1c Lactic Acid Calcium Magnesium Ferritin Total Bilirubin AST ALT Alkaline Phosphatase Lactate Dehydrogenase Total Creatine Kinase C-Reactive Protein Total Protein Albumin Triglycerides Arterial Blood Glucose 244 H Arterial Blood Ionized Calcium Ur Specific [place] Vancomycin Trough Coronavirus (PCR) 11/27/20 11/27/20 11/27/20 04:46 05:38 06:25 WBC 13.8 H RBC Hgb Hct RDW Plt Count Lymph % (Auto) 2.0 L [place] % (Auto) Lymph # (Auto) 0.3 L [place] # (Auto) Baso # (Auto) Seg Neutrophils % Seg Neuts % (Manual) 96.0 H Lymphocytes % (Manual) Seg Neutrophils # 12.7 H Seg Neutrophils # Man 13.2 H Lymphocytes # (Manual) 0.0 L D-Dimer ABG pH POC ABG pCO2 63.0 H POC ABG pO2 53.6 L ABG pO2 ABG HCO3 ABG O2 Saturation ABG Base Excess ABG Hemoglobin ABG Oxyhemoglobin 87.8 L ABG Sodium 115.4 L ABG Potassium ABG Chloride ABG Glucose 219 H Oxyhemoglobin Carboxyhemoglobin Sodium Potassium Chloride Carbon Dioxide BUN Creatinine Glucose POC Glucose 227 H Hemoglobin A1c Lactic Acid Calcium Magnesium Ferritin Total Bilirubin AST ALT Alkaline Phosphatase Lactate Dehydrogenase Total Creatine Kinase C-Reactive Protein Total Protein Albumin Triglycerides Arterial Blood Glucose 219 H Arterial Blood Ionized Calcium Ur Specific [place] Vancomycin Trough Coronavirus (PCR) 11/27/20 11/27/20 11/27/20 06:25 18:05 23:29 WBC RBC Hgb Hct RDW Plt Count Lymph % (Auto) [place] % (Auto) Lymph # (Auto) [place] # (Auto) Baso # (Auto) Seg Neutrophils % Seg Neuts % (Manual) Lymphocytes % (Manual) Seg Neutrophils # Seg Neutrophils # Man Lymphocytes # (Manual) D-Dimer ABG pH POC ABG pCO2 POC ABG pO2 ABG pO2 ABG HCO3 ABG O2 Saturation ABG Base Excess ABG Hemoglobin ABG Oxyhemoglobin ABG Sodium ABG Potassium ABG Chloride ABG Glucose Oxyhemoglobin Carboxyhemoglobin Sodium Potassium Chloride Carbon Dioxide 38 H BUN 34 H Creatinine 0.4 L Glucose 243 H POC Glucose 329 H 227 H Hemoglobin A1c Lactic Acid Calcium 7.9 L Magnesium Ferritin Total Bilirubin AST 50 H ALT 110 H Alkaline Phosphatase Lactate Dehydrogenase Total Creatine Kinase C-Reactive Protein Total Protein 6.1 L Albumin 2.4 L Triglycerides Arterial Blood Glucose Arterial Blood Ionized Calcium Ur Specific [place] Vancomycin Trough Coronavirus (PCR) 11/28/20 11/28/20 11/28/20 03:45 03:45 03:46 WBC 12.2 H RBC Hgb Hct RDW Plt Count Lymph % (Auto) [place] % (Auto) Lymph # (Auto) [place] # (Auto) Baso # (Auto) Seg Neutrophils % Seg Neuts % (Manual) 93.0 H Lymphocytes % (Manual) 2.0 L Seg Neutrophils # Seg Neutrophils # Man 11.3 H Lymphocytes # (Manual) 0.2 L D-Dimer ABG pH POC ABG pCO2 68.4 H POC ABG pO2 55.4 L ABG pO2 ABG HCO3 ABG O2 Saturation ABG Base Excess ABG Hemoglobin ABG Oxyhemoglobin ABG Sodium ABG Potassium ABG Chloride ABG Glucose 197 H Oxyhemoglobin Carboxyhemoglobin Sodium Potassium Chloride Carbon Dioxide 36 H BUN 37 H Creatinine 0.4 L Glucose 194 H POC Glucose Hemoglobin A1c Lactic Acid Calcium 8.1 L Magnesium Ferritin Total Bilirubin AST ALT 86 H Alkaline Phosphatase Lactate Dehydrogenase Total Creatine Kinase C-Reactive Protein Total Protein 6.0 L Albumin 2.3 L Triglycerides Arterial Blood Glucose 197 H Arterial Blood Ionized Calcium Ur Specific [place] Vancomycin Trough Coronavirus (PCR) 11/28/20 11/28/20 11/29/20 05:24 12:21 04:41 WBC RBC Hgb Hct RDW Plt Count Lymph % (Auto) [place] % (Auto) Lymph # (Auto) [place] # (Auto) Baso # (Auto) Seg Neutrophils % Seg Neuts % (Manual) Lymphocytes % (Manual) Seg Neutrophils # Seg Neutrophils # Man Lymphocytes # (Manual) D-Dimer ABG pH POC ABG pCO2 55.1 H POC ABG pO2 53.6 L ABG pO2 ABG HCO3 ABG O2 Saturation ABG Base Excess ABG Hemoglobin ABG Oxyhemoglobin 87.1 L ABG Sodium 131.2 L ABG Potassium ABG Chloride ABG Glucose 164 H Oxyhemoglobin Carboxyhemoglobin Sodium Potassium Chloride Carbon Dioxide BUN Creatinine Glucose POC Glucose 173 H 126 H Hemoglobin A1c Lactic Acid Calcium Magnesium Ferritin Total Bilirubin AST ALT Alkaline Phosphatase Lactate Dehydrogenase Total Creatine Kinase C-Reactive Protein Total Protein Albumin Triglycerides Arterial Blood Glucose 164 H Arterial Blood Ionized Calcium 4.4 L Ur Specific [place] Vancomycin Trough Coronavirus (PCR) 11/29/20 11/29/20 11/29/20 05:29 12:41 13:28 WBC RBC Hgb Hct RDW Plt Count Lymph % (Auto) [place] % (Auto) Lymph # (Auto) [place] # (Auto) Baso # (Auto) Seg Neutrophils % Seg Neuts % (Manual) Lymphocytes % (Manual) Seg Neutrophils # Seg Neutrophils # Man Lymphocytes # (Manual) D-Dimer ABG pH POC ABG pCO2 POC ABG pO2 ABG pO2 ABG HCO3 ABG O2 Saturation ABG Base Excess ABG Hemoglobin ABG Oxyhemoglobin ABG Sodium ABG Potassium ABG Chloride ABG Glucose Oxyhemoglobin Carboxyhemoglobin Sodium Potassium Chloride Carbon Dioxide 40 H BUN 32 H Creatinine 0.4 L Glucose 274 H POC Glucose 173 H 257 H Hemoglobin A1c Lactic Acid Calcium 7.2 L Magnesium Ferritin Total Bilirubin AST 57 H ALT 102 H Alkaline Phosphatase Lactate Dehydrogenase Total Creatine Kinase C-Reactive Protein Total Protein 5.7 L Albumin 2.1 L Triglycerides Arterial Blood Glucose Arterial Blood Ionized Calcium Ur Specific [place] Vancomycin Trough Coronavirus (PCR) 11/29/20 11/29/20 11/29/20 15:40 17:36 21:26 WBC RBC Hgb Hct RDW Plt Count Lymph % (Auto) [place] % (Auto) Lymph # (Auto) [place] # (Auto) Baso # (Auto) Seg Neutrophils % Seg Neuts % (Manual) Lymphocytes % (Manual) Seg Neutrophils # Seg Neutrophils # Man Lymphocytes # (Manual) D-Dimer ABG pH POC ABG pCO2 POC ABG pO2 ABG pO2 ABG HCO3 ABG O2 Saturation ABG Base Excess ABG Hemoglobin ABG Oxyhemoglobin ABG Sodium ABG Potassium ABG Chloride ABG Glucose Oxyhemoglobin Carboxyhemoglobin Sodium Potassium Chloride Carbon Dioxide BUN Creatinine Glucose POC Glucose 240 H 244 H Hemoglobin A1c Lactic Acid Calcium Magnesium Ferritin Total Bilirubin AST ALT Alkaline Phosphatase Lactate Dehydrogenase Total Creatine Kinase C-Reactive Protein Total Protein Albumin Triglycerides Arterial Blood Glucose Arterial Blood Ionized Calcium Ur Specific [place] Vancomycin Trough 4.0 L Coronavirus (PCR) 11/29/20 11/30/20 11/30/20 23:26 03:30 03:30 WBC RBC Hgb Hct RDW Plt Count Lymph % (Auto) [place] % (Auto) Lymph # (Auto) [place] # (Auto) Baso # (Auto) Seg Neutrophils % Seg Neuts % (Manual) 97.0 H Lymphocytes % (Manual) 1.0 L Seg Neutrophils # Seg Neutrophils # Man 9.9 H Lymphocytes # (Manual) 0.1 L D-Dimer ABG pH POC ABG pCO2 POC ABG pO2 ABG pO2 ABG HCO3 ABG O2 Saturation ABG Base Excess ABG Hemoglobin ABG Oxyhemoglobin ABG Sodium ABG Potassium ABG Chloride ABG Glucose Oxyhemoglobin Carboxyhemoglobin Sodium Potassium Chloride Carbon Dioxide 38 H BUN 34 H Creatinine 0.4 L Glucose 305 H POC Glucose 283 H Hemoglobin A1c Lactic Acid Calcium 7.6 L Magnesium Ferritin Total Bilirubin AST ALT 89 H Alkaline Phosphatase Lactate Dehydrogenase Total Creatine Kinase C-Reactive Protein Total Protein 6.0 L Albumin 2.3 L Triglycerides Arterial Blood Glucose Arterial Blood Ionized Calcium Ur Specific [place] Vancomycin Trough Coronavirus (PCR) 11/30/20 11/30/20 11/30/20 03:57 05:22 12:05 WBC RBC Hgb Hct RDW Plt Count Lymph % (Auto) [place] % (Auto) Lymph # (Auto) [place] # (Auto) Baso # (Auto) Seg Neutrophils % Seg Neuts % (Manual) Lymphocytes % (Manual) Seg Neutrophils # Seg Neutrophils # Man Lymphocytes # (Manual) D-Dimer ABG pH POC ABG pCO2 60.8 H POC ABG pO2 51.1 L ABG pO2 ABG HCO3 ABG O2 Saturation ABG Base Excess ABG Hemoglobin ABG Oxyhemoglobin 84.6 L ABG Sodium ABG Potassium ABG Chloride ABG Glucose 315 H Oxyhemoglobin Carboxyhemoglobin Sodium Potassium Chloride Carbon Dioxide BUN Creatinine Glucose POC Glucose 295 H 413 H Hemoglobin A1c Lactic Acid Calcium Magnesium Ferritin Total Bilirubin AST ALT Alkaline Phosphatase Lactate Dehydrogenase Total Creatine Kinase C-Reactive Protein Total Protein Albumin Triglycerides Arterial Blood Glucose 315 H Arterial Blood Ionized Calcium 4.5 L Ur Specific [place] Vancomycin Trough Coronavirus (PCR) 11/30/20 11/30/20 12/01/20 17:24 23:25 02:14 WBC RBC Hgb Hct RDW Plt Count Lymph % (Auto) [place] % (Auto) Lymph # (Auto) [place] # (Auto) Baso # (Auto) Seg Neutrophils % Seg Neuts % (Manual) Lymphocytes % (Manual) Seg Neutrophils # Seg Neutrophils # Man Lymphocytes # (Manual) D-Dimer ABG pH 7.278 L POC ABG pCO2 78.1 H POC ABG pO2 79.5 L ABG pO2 ABG HCO3 ABG O2 Saturation ABG Base Excess ABG Hemoglobin 11.6 L ABG Oxyhemoglobin ABG Sodium 134.5 L ABG Potassium 4.6 H ABG Chloride ABG Glucose 286 H Oxyhemoglobin Carboxyhemoglobin Sodium Potassium Chloride Carbon Dioxide BUN Creatinine Glucose POC Glucose 305 H 302 H Hemoglobin A1c Lactic Acid Calcium Magnesium Ferritin Total Bilirubin AST ALT Alkaline Phosphatase Lactate Dehydrogenase Total Creatine Kinase C-Reactive Protein Total Protein Albumin Triglycerides Arterial Blood Glucose 286 H Arterial Blood Ionized Calcium Ur Specific [place] Vancomycin Trough Coronavirus (PCR) 12/01/20 12/01/20 12/01/20 03:35 03:35 05:22 WBC 13.4 H RBC 3.54 L Hgb 10.4 L Hct 31.8 L RDW Plt Count Lymph % (Auto) [place] % (Auto) Lymph # (Auto) [place] # (Auto) Baso # (Auto) Seg Neutrophils % Seg Neuts % (Manual) 95.0 H Lymphocytes % (Manual) 3.0 L Seg Neutrophils # Seg Neutrophils # Man 12.7 H Lymphocytes # (Manual) 0.4 L D-Dimer ABG pH POC ABG pCO2 POC ABG pO2 ABG pO2 ABG HCO3 ABG O2 Saturation ABG Base Excess ABG Hemoglobin ABG Oxyhemoglobin ABG Sodium ABG Potassium ABG Chloride ABG Glucose Oxyhemoglobin Carboxyhemoglobin Sodium Potassium Chloride Carbon Dioxide 35 H BUN 34 H Creatinine 0.5 L Glucose 279 H POC Glucose 259 H Hemoglobin A1c Lactic Acid Calcium 7.6 L Magnesium Ferritin Total Bilirubin AST ALT 63 H Alkaline Phosphatase Lactate Dehydrogenase Total Creatine Kinase C-Reactive Protein Total Protein 4.8 L Albumin 2.1 L Triglycerides Arterial Blood Glucose Arterial Blood Ionized Calcium Ur Specific [place] Vancomycin Trough Coronavirus (PCR) 12/01/20 12/01/20 12/01/20 12:05 17:40 23:46 WBC RBC Hgb Hct RDW Plt Count Lymph % (Auto) [place] % (Auto) Lymph # (Auto) [place] # (Auto) Baso # (Auto) Seg Neutrophils % Seg Neuts % (Manual) Lymphocytes % (Manual) Seg Neutrophils # Seg Neutrophils # Man Lymphocytes # (Manual) D-Dimer ABG pH POC ABG pCO2 POC ABG pO2 ABG pO2 ABG HCO3 ABG O2 Saturation ABG Base Excess ABG Hemoglobin ABG Oxyhemoglobin ABG Sodium ABG Potassium ABG Chloride ABG Glucose Oxyhemoglobin Carboxyhemoglobin Sodium Potassium Chloride Carbon Dioxide BUN Creatinine Glucose POC Glucose 197 H 244 H 284 H Hemoglobin A1c Lactic Acid Calcium Magnesium Ferritin Total Bilirubin AST ALT Alkaline Phosphatase Lactate Dehydrogenase Total Creatine Kinase C-Reactive Protein Total Protein Albumin Triglycerides Arterial Blood Glucose Arterial Blood Ionized Calcium Ur Specific [place] Vancomycin Trough Coronavirus (PCR) 12/02/20 12/02/20 12/02/20 02:14 03:03 04:11 WBC 16.5 H RBC 3.55 L Hgb 10.5 L Hct 31.9 L RDW Plt Count Lymph % (Auto) [place] % (Auto) Lymph # (Auto) [place] # (Auto) Baso # (Auto) Seg Neutrophils % Seg Neuts % (Manual) 90.0 H Lymphocytes % (Manual) 3.0 L Seg Neutrophils # Seg Neutrophils # Man 14.9 H Lymphocytes # (Manual) 0.5 L D-Dimer ABG pH POC ABG pCO2 74.8 H POC ABG pO2 58.9 L ABG pO2 ABG HCO3 ABG O2 Saturation ABG Base Excess ABG Hemoglobin 11.5 L ABG Oxyhemoglobin ABG Sodium ABG Potassium ABG Chloride ABG Glucose 264 H Oxyhemoglobin Carboxyhemoglobin Sodium Potassium Chloride Carbon Dioxide 37 H BUN 30 H Creatinine 0.4 L Glucose 245 H POC Glucose Hemoglobin A1c Lactic Acid Calcium 7.5 L Magnesium Ferritin Total Bilirubin AST ALT Alkaline Phosphatase Lactate Dehydrogenase Total Creatine Kinase C-Reactive Protein Total Protein 5.2 L Albumin 2.2 L Triglycerides Arterial Blood Glucose 264 H Arterial Blood Ionized Calcium 4.5 L Ur Specific [place] Vancomycin Trough Coronavirus (PCR) 12/02/20 12/02/20 12/02/20 05:19 11:46 17:52 WBC RBC Hgb Hct RDW Plt Count Lymph % (Auto) [place] % (Auto) Lymph # (Auto) [place] # (Auto) Baso # (Auto) Seg Neutrophils % Seg Neuts % (Manual) Lymphocytes % (Manual) Seg Neutrophils # Seg Neutrophils # Man Lymphocytes # (Manual) D-Dimer ABG pH POC ABG pCO2 POC ABG pO2 ABG pO2 ABG HCO3 ABG O2 Saturation ABG Base Excess ABG Hemoglobin ABG Oxyhemoglobin ABG Sodium ABG Potassium ABG Chloride ABG Glucose Oxyhemoglobin Carboxyhemoglobin Sodium Potassium Chloride Carbon Dioxide BUN Creatinine Glucose POC Glucose 238 H 236 H 233 H Hemoglobin A1c Lactic Acid Calcium Magnesium Ferritin Total Bilirubin AST ALT Alkaline Phosphatase Lactate Dehydrogenase Total Creatine Kinase C-Reactive Protein Total Protein Albumin Triglycerides Arterial Blood Glucose Arterial Blood Ionized Calcium Ur Specific [place] Vancomycin Trough Coronavirus (PCR) 12/02/20 12/03/20 12/03/20 23:23 03:21 04:35 WBC RBC Hgb Hct RDW Plt Count 112 L Lymph % (Auto) [place] % (Auto) Lymph # (Auto) [place] # (Auto) Baso # (Auto) Seg Neutrophils % Seg Neuts % (Manual) 93.0 H Lymphocytes % (Manual) 4.0 L Seg Neutrophils # Seg Neutrophils # Man 9.1 H Lymphocytes # (Manual) 0.4 L D-Dimer ABG pH 7.299 L POC ABG pCO2 82.1 H POC ABG pO2 62.4 L ABG pO2 ABG HCO3 ABG O2 Saturation ABG Base Excess ABG Hemoglobin 11.5 L ABG Oxyhemoglobin 89.6 L ABG Sodium 134.3 L ABG Potassium ABG Chloride 95.0 L ABG Glucose 203 H Oxyhemoglobin Carboxyhemoglobin Sodium Potassium Chloride Carbon Dioxide BUN Creatinine Glucose POC Glucose 213 H Hemoglobin A1c Lactic Acid Calcium Magnesium Ferritin Total Bilirubin AST ALT Alkaline Phosphatase Lactate Dehydrogenase Total Creatine Kinase C-Reactive Protein Total Protein Albumin Triglycerides Arterial Blood Glucose 203 H Arterial Blood Ionized Calcium 4.5 L Ur Specific [place] Vancomycin Trough Coronavirus (PCR) 12/03/20 12/03/20 12/03/20 04:35 05:42 11:28 WBC RBC Hgb Hct RDW Plt Count Lymph % (Auto) [place] % (Auto) Lymph # (Auto) [place] # (Auto) Baso # (Auto) Seg Neutrophils % Seg Neuts % (Manual) Lymphocytes % (Manual) Seg Neutrophils # Seg Neutrophils # Man Lymphocytes # (Manual) D-Dimer ABG pH POC ABG pCO2 POC ABG pO2 ABG pO2 ABG HCO3 ABG O2 Saturation ABG Base Excess ABG Hemoglobin ABG Oxyhemoglobin ABG Sodium ABG Potassium ABG Chloride ABG Glucose Oxyhemoglobin Carboxyhemoglobin Sodium Potassium Chloride 97.8 L Carbon Dioxide 43 H* BUN 25 H Creatinine 0.3 L Glucose 214 H POC Glucose 193 H 211 H Hemoglobin A1c Lactic Acid Calcium 7.7 L Magnesium Ferritin Total Bilirubin AST ALT 63 H Alkaline Phosphatase 132 H Lactate Dehydrogenase Total Creatine Kinase C-Reactive Protein Total Protein 5.1 L Albumin 2.4 L Triglycerides Arterial Blood Glucose Arterial Blood Ionized Calcium Ur Specific [place] Vancomycin Trough Coronavirus (PCR) 12/03/20 12/03/20 12/04/20 17:45 23:57 00:11 WBC RBC Hgb Hct RDW Plt Count Lymph % (Auto) [place] % (Auto) Lymph # (Auto) [place] # (Auto) Baso # (Auto) Seg Neutrophils % Seg Neuts % (Manual) Lymphocytes % (Manual) Seg Neutrophils # Seg Neutrophils # Man Lymphocytes # (Manual) D-Dimer ABG pH POC ABG pCO2 POC ABG pO2 ABG pO2 ABG HCO3 ABG O2 Saturation ABG Base Excess ABG Hemoglobin ABG Oxyhemoglobin ABG Sodium ABG Potassium ABG Chloride ABG Glucose Oxyhemoglobin Carboxyhemoglobin Sodium Potassium Chloride Carbon Dioxide BUN Creatinine Glucose POC Glucose 231 H 240 H 239 H Hemoglobin A1c Lactic Acid Calcium Magnesium Ferritin Total Bilirubin AST ALT Alkaline Phosphatase Lactate Dehydrogenase Total Creatine Kinase C-Reactive Protein Total Protein Albumin Triglycerides Arterial Blood Glucose Arterial Blood Ionized Calcium Ur Specific [place] Vancomycin Trough Coronavirus (PCR) 02/19/21 02/19/21 02/19/21 04:00 05:20 05:34 WBC RBC Hgb Hct RDW Plt Count Lymph % (Auto) [place] % (Auto) Lymph # (Auto) [place] # (Auto) Baso # (Auto) Seg Neutrophils % Seg Neuts % (Manual) Lymphocytes % (Manual) Seg Neutrophils # Seg Neutrophils # Man Lymphocytes # (Manual) D-Dimer ABG pH POC ABG pCO2 84.4 H POC ABG pO2 68.0 L ABG pO2 ABG HCO3 ABG O2 Saturation ABG Base Excess ABG Hemoglobin 11.6 L ABG Oxyhemoglobin ABG Sodium 130.9 L ABG Potassium ABG Chloride 90.0 L ABG Glucose 244 H Oxyhemoglobin Carboxyhemoglobin Sodium Potassium Chloride Carbon Dioxide BUN Creatinine Glucose POC Glucose 241 H 213 H Hemoglobin A1c Lactic Acid Calcium Magnesium Ferritin Total Bilirubin AST ALT Alkaline Phosphatase Lactate Dehydrogenase Total Creatine Kinase C-Reactive Protein Total Protein Albumin Triglycerides Arterial Blood Glucose 244 H Arterial Blood Ionized Calcium 4.4 L Ur Specific [place] Vancomycin Trough Coronavirus (PCR) 12/04/20 12/04/20 12/04/20 11:36 16:53 23:32 WBC RBC Hgb Hct RDW Plt Count Lymph % (Auto) [place] % (Auto) Lymph # (Auto) [place] # (Auto) Baso # (Auto) Seg Neutrophils % Seg Neuts % (Manual) Lymphocytes % (Manual) Seg Neutrophils # Seg Neutrophils # Man Lymphocytes # (Manual) D-Dimer ABG pH POC ABG pCO2 POC ABG pO2 ABG pO2 ABG HCO3 ABG O2 Saturation ABG Base Excess ABG Hemoglobin ABG Oxyhemoglobin ABG Sodium ABG Potassium ABG Chloride ABG Glucose Oxyhemoglobin Carboxyhemoglobin Sodium Potassium Chloride Carbon Dioxide BUN Creatinine Glucose POC Glucose 196 H 127 H 230 H Hemoglobin A1c Lactic Acid Calcium Magnesium Ferritin Total Bilirubin AST ALT Alkaline Phosphatase Lactate Dehydrogenase Total Creatine Kinase C-Reactive Protein Total Protein Albumin Triglycerides Arterial Blood Glucose Arterial Blood Ionized Calcium Ur Specific [place] Vancomycin Trough Coronavirus (PCR) 12/04/20 12/05/20 12/05/20 Unknown 04:16 05:21 WBC RBC Hgb Hct RDW Plt Count Lymph % (Auto) [place] % (Auto) Lymph # (Auto) [place] # (Auto) Baso # (Auto) Seg Neutrophils % Seg Neuts % (Manual) Lymphocytes % (Manual) Seg Neutrophils # Seg Neutrophils # Man Lymphocytes # (Manual) D-Dimer ABG pH POC ABG pCO2 86.7 H POC ABG pO2 58.0 L ABG pO2 ABG HCO3 ABG O2 Saturation ABG Base Excess ABG Hemoglobin 11.6 L ABG Oxyhemoglobin 89 L ABG Sodium 130.1 L ABG Potassium 4.9 H ABG Chloride 89.0 L ABG Glucose 254 H Oxyhemoglobin Carboxyhemoglobin Sodium 136 L Potassium Chloride 90.0 L Carbon Dioxide 46 H* BUN 24 H Creatinine 0.3 L Glucose 226 H POC Glucose 213 H Hemoglobin A1c Lactic Acid Calcium 7.6 L Magnesium Ferritin Total Bilirubin AST 46 H ALT 78 H Alkaline Phosphatase 172 H Lactate Dehydrogenase Total Creatine Kinase C-Reactive Protein Total Protein 6.0 L Albumin 2.8 L Triglycerides 156 H Arterial Blood Glucose 254 H Arterial Blood Ionized Calcium 4.4 L Ur Specific [place] Vancomycin Trough Coronavirus (PCR) 12/05/20 12/05/20 12/05/20 11:22 17:26 23:38 WBC RBC Hgb Hct RDW Plt Count Lymph % (Auto) [place] % (Auto) Lymph # (Auto) [place] # (Auto) Baso # (Auto) Seg Neutrophils % Seg Neuts % (Manual) Lymphocytes % (Manual) Seg Neutrophils # Seg Neutrophils # Man Lymphocytes # (Manual) D-Dimer ABG pH POC ABG pCO2 POC ABG pO2 ABG pO2 ABG HCO3 ABG O2 Saturation ABG Base Excess ABG Hemoglobin ABG Oxyhemoglobin ABG Sodium ABG Potassium ABG Chloride ABG Glucose Oxyhemoglobin Carboxyhemoglobin Sodium Potassium Chloride Carbon Dioxide BUN Creatinine Glucose POC Glucose 212 H 157 H 204 H Hemoglobin A1c Lactic Acid Calcium Magnesium Ferritin Total Bilirubin AST ALT Alkaline Phosphatase Lactate Dehydrogenase Total Creatine Kinase C-Reactive Protein Total Protein Albumin Triglycerides Arterial Blood Glucose Arterial Blood Ionized Calcium Ur Specific [place] Vancomycin Trough Coronavirus (PCR) 12/06/20 12/06/20 12/06/20 04:31 04:31 05:12 WBC 17.0 H RBC 3.63 L Hgb 10.8 L D Hct 32.6 L D RDW Plt Count Lymph % (Auto) [place] % (Auto) Lymph # (Auto) [place] # (Auto) Baso # (Auto) Seg Neutrophils % Seg Neuts % (Manual) Lymphocytes % (Manual) Seg Neutrophils # Seg Neutrophils # Man Lymphocytes # (Manual) D-Dimer ABG pH POC ABG pCO2 85.9 H POC ABG pO2 57.6 L ABG pO2 ABG HCO3 ABG O2 Saturation ABG Base Excess ABG Hemoglobin ABG Oxyhemoglobin ABG Sodium 131.2 L ABG Potassium 4.8 H ABG Chloride 86.0 L ABG Glucose 200 H Oxyhemoglobin Carboxyhemoglobin Sodium 134 L Potassium 5.1 H Chloride 88.4 L Carbon Dioxide 47 H* BUN 23 H Creatinine 0.3 L Glucose 206 H POC Glucose Hemoglobin A1c Lactic Acid Calcium 8.3 L Magnesium Ferritin Total Bilirubin AST 48 H ALT 91 H Alkaline Phosphatase 140 H Lactate Dehydrogenase Total Creatine Kinase C-Reactive Protein Total Protein 5.7 L Albumin 2.6 L Triglycerides Arterial Blood Glucose 200 H Arterial Blood Ionized Calcium 4.4 L Ur Specific [place] Vancomycin Trough Coronavirus (PCR) 12/06/20 12/06/20 12/06/20 05:24 12:18 16:45 WBC RBC Hgb Hct RDW Plt Count Lymph % (Auto) [place] % (Auto) Lymph # (Auto) [place] # (Auto) Baso # (Auto) Seg Neutrophils % Seg Neuts % (Manual) Lymphocytes % (Manual) Seg Neutrophils # Seg Neutrophils # Man Lymphocytes # (Manual) D-Dimer ABG pH POC ABG pCO2 POC ABG pO2 ABG pO2 ABG HCO3 ABG O2 Saturation ABG Base Excess ABG Hemoglobin ABG Oxyhemoglobin ABG Sodium ABG Potassium ABG Chloride ABG Glucose Oxyhemoglobin Carboxyhemoglobin Sodium Potassium Chloride Carbon Dioxide BUN Creatinine Glucose POC Glucose 186 H 187 H 150 H Hemoglobin A1c Lactic Acid Calcium Magnesium Ferritin Total Bilirubin AST ALT Alkaline Phosphatase Lactate Dehydrogenase Total Creatine Kinase C-Reactive Protein Total Protein Albumin Triglycerides Arterial Blood Glucose Arterial Blood Ionized Calcium Ur Specific [place] Vancomycin Trough Coronavirus (PCR) 12/06/20 12/07/20 12/07/20 23:43 05:20 05:21 WBC RBC Hgb Hct RDW Plt Count Lymph % (Auto) [place] % (Auto) Lymph # (Auto) [place] # (Auto) Baso # (Auto) Seg Neutrophils % Seg Neuts % (Manual) Lymphocytes % (Manual) Seg Neutrophils # Seg Neutrophils # Man Lymphocytes # (Manual) D-Dimer ABG pH POC ABG pCO2 POC ABG pO2 ABG pO2 48.4 L ABG HCO3 50.8 H ABG O2 Saturation 86.2 L ABG Base Excess 22.4 H ABG Hemoglobin 11.0 L ABG Oxyhemoglobin ABG Sodium ABG Potassium ABG Chloride ABG Glucose Oxyhemoglobin 84.0 L Carboxyhemoglobin Sodium Potassium Chloride Carbon Dioxide BUN Creatinine Glucose POC Glucose 153 H 107 H Hemoglobin A1c Lactic Acid Calcium Magnesium Ferritin Total Bilirubin AST ALT Alkaline Phosphatase Lactate Dehydrogenase Total Creatine Kinase C-Reactive Protein Total Protein Albumin Triglycerides Arterial Blood Glucose Arterial Blood Ionized Calcium Ur Specific [place] Vancomycin Trough Coronavirus (PCR) 12/07/20 12/07/20 12/07/20 13:20 14:28 17:35 WBC RBC Hgb Hct RDW Plt Count Lymph % (Auto) [place] % (Auto) Lymph # (Auto) [place] # (Auto) Baso # (Auto) Seg Neutrophils % Seg Neuts % (Manual) Lymphocytes % (Manual) Seg Neutrophils # Seg Neutrophils # Man Lymphocytes # (Manual) D-Dimer ABG pH POC ABG pCO2 74.1 H POC ABG pO2 68.5 L ABG pO2 ABG HCO3 ABG O2 Saturation ABG Base Excess ABG Hemoglobin 10.7 L ABG Oxyhemoglobin 91.9 L ABG Sodium 132.2 L ABG Potassium 4.7 H ABG Chloride 88.0 L ABG Glucose 138 H Oxyhemoglobin Carboxyhemoglobin Sodium 134 L Potassium Chloride 87.4 L Carbon Dioxide 49 H* BUN Creatinine 0.2 L Glucose 132 H POC Glucose 176 H Hemoglobin A1c Lactic Acid Calcium 7.7 L Magnesium Ferritin Total Bilirubin AST ALT Alkaline Phosphatase Lactate Dehydrogenase Total Creatine Kinase C-Reactive Protein Total Protein Albumin Triglycerides Arterial Blood Glucose 138 H Arterial Blood Ionized Calcium 4.0 L Ur Specific [place] Vancomycin Trough Coronavirus (PCR) 12/07/20 12/08/20 12/08/20 23:44 04:12 05:29 WBC RBC Hgb Hct RDW Plt Count Lymph % (Auto) [place] % (Auto) Lymph # (Auto) [place] # (Auto) Baso # (Auto) Seg Neutrophils % Seg Neuts % (Manual) Lymphocytes % (Manual) Seg Neutrophils # Seg Neutrophils # Man Lymphocytes # (Manual) D-Dimer ABG pH POC ABG pCO2 POC ABG pO2 ABG pO2 69.7 L ABG HCO3 50.1 H ABG O2 Saturation ABG Base Excess 21.6 H ABG Hemoglobin 10.9 L ABG Oxyhemoglobin ABG Sodium ABG Potassium ABG Chloride ABG Glucose Oxyhemoglobin 93.2 L Carboxyhemoglobin Sodium Potassium Chloride Carbon Dioxide BUN Creatinine Glucose POC Glucose 143 H 143 H Hemoglobin A1c Lactic Acid Calcium Magnesium Ferritin Total Bilirubin AST ALT Alkaline Phosphatase Lactate Dehydrogenase Total Creatine Kinase C-Reactive Protein Total Protein Albumin Triglycerides Arterial Blood Glucose Arterial Blood Ionized Calcium Ur Specific [place] Vancomycin Trough Coronavirus (PCR) 12/08/20 12/08/20 12/09/20 06:10 06:10 04:24 WBC 12.0 H RBC 3.18 L Hgb 9.5 L Hct 28.9 L RDW Plt Count Lymph % (Auto) [place] % (Auto) Lymph # (Auto) [place] # (Auto) Baso # (Auto) Seg Neutrophils % Seg Neuts % (Manual) 95.0 H Lymphocytes % (Manual) 3.0 L Seg Neutrophils # Seg Neutrophils # Man 11.4 H Lymphocytes # (Manual) 0.4 L D-Dimer ABG pH POC ABG pCO2 76.2 H POC ABG pO2 52.8 L ABG pO2 ABG HCO3 ABG O2 Saturation ABG Base Excess ABG Hemoglobin 11.7 L ABG Oxyhemoglobin ABG Sodium 132.0 L ABG Potassium ABG Chloride 87.0 L ABG Glucose 118 H Oxyhemoglobin Carboxyhemoglobin Sodium 133 L Potassium Chloride 86.3 L Carbon Dioxide 53 H* BUN Creatinine 0.2 L Glucose 156 H POC Glucose Hemoglobin A1c Lactic Acid Calcium 7.6 L Magnesium Ferritin Total Bilirubin AST ALT Alkaline Phosphatase Lactate Dehydrogenase Total Creatine Kinase C-Reactive Protein Total Protein Albumin Triglycerides Arterial Blood Glucose 118 H Arterial Blood Ionized Calcium 4.2 L Ur Specific [place] Vancomycin Trough Coronavirus (PCR) 12/09/20 12/09/20 12/09/20 05:44 06:40 06:40 WBC 13.5 H RBC 3.28 L Hgb 9.7 L Hct 29.9 L RDW Plt Count Lymph % (Auto) [place] % (Auto) Lymph # (Auto) [place] # (Auto) Baso # (Auto) Seg Neutrophils % Seg Neuts % (Manual) Lymphocytes % (Manual) Seg Neutrophils # Seg Neutrophils # Man Lymphocytes # (Manual) D-Dimer ABG pH POC ABG pCO2 POC ABG pO2 ABG pO2 ABG HCO3 ABG O2 Saturation ABG Base Excess ABG Hemoglobin ABG Oxyhemoglobin ABG Sodium ABG Potassium ABG Chloride ABG Glucose Oxyhemoglobin Carboxyhemoglobin Sodium 135 L Potassium Chloride 89.5 L Carbon Dioxide 52 H* BUN Creatinine 0.3 L Glucose 114 H POC Glucose 117 H Hemoglobin A1c Lactic Acid Calcium 7.6 L Magnesium Ferritin Total Bilirubin AST ALT Alkaline Phosphatase Lactate Dehydrogenase Total Creatine Kinase C-Reactive Protein Total Protein Albumin Triglycerides Arterial Blood Glucose Arterial Blood Ionized Calcium Ur Specific [place] Vancomycin Trough Coronavirus (PCR) 12/09/20 12/09/20 12/10/20 16:42 21:11 04:28 WBC RBC Hgb Hct RDW Plt Count Lymph % (Auto) [place] % (Auto) Lymph # (Auto) [place] # (Auto) Baso # (Auto) Seg Neutrophils % Seg Neuts % (Manual) Lymphocytes % (Manual) Seg Neutrophils # Seg Neutrophils # Man Lymphocytes # (Manual) D-Dimer ABG pH POC ABG pCO2 72.5 H 69.4 H 76.9 H POC ABG pO2 50.4 L 80.6 L 60.2 L ABG pO2 ABG HCO3 ABG O2 Saturation ABG Base Excess ABG Hemoglobin 10.4 L 10.7 L 10 L ABG Oxyhemoglobin 84.3 L 89.7 L ABG Sodium 133.7 L 133.7 L 133.8 L ABG Potassium ABG Chloride 90.0 L 91.0 L 91.0 L ABG Glucose 116 H 96 H 57 L Oxyhemoglobin Carboxyhemoglobin 0.4 L Sodium Potassium Chloride Carbon Dioxide BUN Creatinine Glucose POC Glucose Hemoglobin A1c Lactic Acid Calcium Magnesium Ferritin Total Bilirubin AST ALT Alkaline Phosphatase Lactate Dehydrogenase Total Creatine Kinase C-Reactive Protein Total Protein Albumin Triglycerides Arterial Blood Glucose 116 H 96 H 57 L Arterial Blood Ionized Calcium 4.2 L 4.3 L 4.2 L Ur Specific [place] Vancomycin Trough Coronavirus (PCR) 12/10/20 12/10/20 12/10/20 05:09 05:41 11:50 WBC RBC Hgb Hct RDW Plt Count Lymph % (Auto) [place] % (Auto) Lymph # (Auto) [place] # (Auto) Baso # (Auto) Seg Neutrophils % Seg Neuts % (Manual) Lymphocytes % (Manual) Seg Neutrophils # Seg Neutrophils # Man Lymphocytes # (Manual) D-Dimer ABG pH POC ABG pCO2 POC ABG pO2 ABG pO2 ABG HCO3 ABG O2 Saturation ABG Base Excess ABG Hemoglobin ABG Oxyhemoglobin ABG Sodium ABG Potassium ABG Chloride ABG Glucose Oxyhemoglobin Carboxyhemoglobin Sodium Potassium Chloride Carbon Dioxide BUN Creatinine Glucose POC Glucose 41 L 138 H 106 H Hemoglobin A1c Lactic Acid Calcium Magnesium Ferritin Total Bilirubin AST ALT Alkaline Phosphatase Lactate Dehydrogenase Total Creatine Kinase C-Reactive Protein Total Protein Albumin Triglycerides Arterial Blood Glucose Arterial Blood Ionized Calcium Ur Specific [place] Vancomycin Trough Coronavirus (PCR) 12/10/20 12/10/20 12/11/20 17:34 23:25 04:06 WBC RBC Hgb Hct RDW Plt Count Lymph % (Auto) [place] % (Auto) Lymph # (Auto) [place] # (Auto) Baso # (Auto) Seg Neutrophils % Seg Neuts % (Manual) Lymphocytes % (Manual) Seg Neutrophils # Seg Neutrophils # Man Lymphocytes # (Manual) D-Dimer ABG pH POC ABG pCO2 71.0 H POC ABG pO2 56.8 L ABG pO2 ABG HCO3 ABG O2 Saturation ABG Base Excess ABG Hemoglobin 10.1 L ABG Oxyhemoglobin 88.5 L ABG Sodium 132.3 L ABG Potassium ABG Chloride 91.0 L ABG Glucose 168 H Oxyhemoglobin Carboxyhemoglobin Sodium Potassium Chloride Carbon Dioxide BUN Creatinine Glucose POC Glucose 121 H 167 H Hemoglobin A1c Lactic Acid Calcium Magnesium Ferritin Total Bilirubin AST ALT Alkaline Phosphatase Lactate Dehydrogenase Total Creatine Kinase C-Reactive Protein Total Protein Albumin Triglycerides Arterial Blood Glucose 168 H Arterial Blood Ionized Calcium 4.1 L Ur Specific [place] Vancomycin Trough Coronavirus (PCR) 12/11/20 12/11/20 12/11/20 05:21 11:44 15:40 WBC RBC Hgb Hct RDW Plt Count Lymph % (Auto) [place] % (Auto) Lymph # (Auto) [place] # (Auto) Baso # (Auto) Seg Neutrophils % Seg Neuts % (Manual) Lymphocytes % (Manual) Seg Neutrophils # Seg Neutrophils # Man Lymphocytes # (Manual) D-Dimer ABG pH 7.454 H POC ABG pCO2 58.6 H POC ABG pO2 50.7 L ABG pO2 ABG HCO3 ABG O2 Saturation ABG Base Excess ABG Hemoglobin 10.1 L ABG Oxyhemoglobin 86.2 L ABG Sodium 131.2 L ABG Potassium ABG Chloride 92.0 L ABG Glucose 197 H Oxyhemoglobin Carboxyhemoglobin Sodium Potassium Chloride Carbon Dioxide BUN Creatinine Glucose POC Glucose 149 H 202 H Hemoglobin A1c Lactic Acid Calcium Magnesium Ferritin Total Bilirubin AST ALT Alkaline Phosphatase Lactate Dehydrogenase Total Creatine Kinase C-Reactive Protein Total Protein Albumin Triglycerides Arterial Blood Glucose 197 H Arterial Blood Ionized Calcium 4.2 L Ur Specific [place] Vancomycin Trough Coronavirus (PCR) 12/11/20 12/11/20 12/12/20 17:09 23:16 05:09 WBC RBC Hgb Hct RDW Plt Count Lymph % (Auto) [place] % (Auto) Lymph # (Auto) [place] # (Auto) Baso # (Auto) Seg Neutrophils % Seg Neuts % (Manual) Lymphocytes % (Manual) Seg Neutrophils # Seg Neutrophils # Man Lymphocytes # (Manual) D-Dimer ABG pH POC ABG pCO2 63.1 H POC ABG pO2 62.6 L ABG pO2 ABG HCO3 ABG O2 Saturation ABG Base Excess ABG Hemoglobin 10.3 L ABG Oxyhemoglobin ABG Sodium 130.3 L ABG Potassium 4.6 H ABG Chloride 92.0 L ABG Glucose 215 H Oxyhemoglobin Carboxyhemoglobin Sodium Potassium Chloride Carbon Dioxide BUN Creatinine Glucose POC Glucose 181 H 192 H Hemoglobin A1c Lactic Acid Calcium Magnesium Ferritin Total Bilirubin AST ALT Alkaline Phosphatase Lactate Dehydrogenase Total Creatine Kinase C-Reactive Protein Total Protein Albumin Triglycerides Arterial Blood Glucose 215 H Arterial Blood Ionized Calcium 4.4 L Ur Specific [place] Vancomycin Trough Coronavirus (PCR) 12/12/20 12/12/20 12/12/20 05:16 05:47 11:41 WBC RBC Hgb Hct RDW Plt Count Lymph % (Auto) [place] % (Auto) Lymph # (Auto) [place] # (Auto) Baso # (Auto) Seg Neutrophils % Seg Neuts % (Manual) Lymphocytes % (Manual) Seg Neutrophils # Seg Neutrophils # Man Lymphocytes # (Manual) D-Dimer ABG pH POC ABG pCO2 POC ABG pO2 ABG pO2 ABG HCO3 ABG O2 Saturation ABG Base Excess ABG Hemoglobin ABG Oxyhemoglobin ABG Sodium ABG Potassium ABG Chloride ABG Glucose Oxyhemoglobin Carboxyhemoglobin Sodium Potassium Chloride Carbon Dioxide BUN Creatinine Glucose POC Glucose 208 H 218 H Hemoglobin A1c Lactic Acid Calcium Magnesium Ferritin Total Bilirubin AST ALT Alkaline Phosphatase Lactate Dehydrogenase Total Creatine Kinase C-Reactive Protein Total Protein Albumin Triglycerides 150 H Arterial Blood Glucose Arterial Blood Ionized Calcium Ur Specific [place] Vancomycin Trough Coronavirus (PCR) 12/12/20 12/12/20 12/13/20 17:05 23:18 03:36 WBC RBC Hgb Hct RDW Plt Count Lymph % (Auto) [place] % (Auto) Lymph # (Auto) [place] # (Auto) Baso # (Auto) Seg Neutrophils % Seg Neuts % (Manual) Lymphocytes % (Manual) Seg Neutrophils # Seg Neutrophils # Man Lymphocytes # (Manual) D-Dimer ABG pH POC ABG pCO2 61.5 H POC ABG pO2 77.6 L ABG pO2 ABG HCO3 ABG O2 Saturation ABG Base Excess ABG Hemoglobin 10.2 L ABG Oxyhemoglobin ABG Sodium 127.5 L ABG Potassium ABG Chloride 91.0 L ABG Glucose 232 H Oxyhemoglobin Carboxyhemoglobin Sodium Potassium Chloride Carbon Dioxide BUN Creatinine Glucose POC Glucose 187 H 176 H Hemoglobin A1c Lactic Acid Calcium Magnesium Ferritin Total Bilirubin AST ALT Alkaline Phosphatase Lactate Dehydrogenase Total Creatine Kinase C-Reactive Protein Total Protein Albumin Triglycerides Arterial Blood Glucose 232 H Arterial Blood Ionized Calcium 4.2 L Ur Specific [place] Vancomycin Trough Coronavirus (PCR) 12/13/20 12/13/20 12/13/20 05:13 10:00 11:30 WBC RBC 3.50 L Hgb 10.5 L Hct 31.9 L RDW Plt Count Lymph % (Auto) [place] % (Auto) Lymph # (Auto) [place] # (Auto) Baso # (Auto) Seg Neutrophils % Seg Neuts % (Manual) 96.0 H Lymphocytes % (Manual) Seg Neutrophils # Seg Neutrophils # Man 9.2 H Lymphocytes # (Manual) 0.0 L D-Dimer ABG pH POC ABG pCO2 POC ABG pO2 ABG pO2 ABG HCO3 ABG O2 Saturation ABG Base Excess ABG Hemoglobin ABG Oxyhemoglobin ABG Sodium ABG Potassium ABG Chloride ABG Glucose Oxyhemoglobin Carboxyhemoglobin Sodium Potassium Chloride Carbon Dioxide BUN Creatinine Glucose POC Glucose 204 H Hemoglobin A1c Lactic Acid Calcium Magnesium Ferritin Total Bilirubin AST ALT Alkaline Phosphatase Lactate Dehydrogenase Total Creatine Kinase C-Reactive Protein Total Protein Albumin Triglycerides Arterial Blood Glucose Arterial Blood Ionized Calcium Ur Specific [place] Vancomycin Trough Coronavirus (PCR) Positive A 12/13/20 12/13/20 12/13/20 11:30 12:01 18:04 WBC RBC Hgb Hct RDW Plt Count Lymph % (Auto) [place] % (Auto) Lymph # (Auto) [place] # (Auto) Baso # (Auto) Seg Neutrophils % Seg Neuts % (Manual) Lymphocytes % (Manual) Seg Neutrophils # Seg Neutrophils # Man Lymphocytes # (Manual) D-Dimer ABG pH POC ABG pCO2 POC ABG pO2 ABG pO2 ABG HCO3 ABG O2 Saturation ABG Base Excess ABG Hemoglobin ABG Oxyhemoglobin ABG Sodium ABG Potassium ABG Chloride ABG Glucose Oxyhemoglobin Carboxyhemoglobin Sodium 132 L Potassium Chloride 90.1 L Carbon Dioxide 41 H* D BUN Creatinine 0.2 L Glucose 249 H POC Glucose 224 H 172 H Hemoglobin A1c Lactic Acid Calcium 7.4 L Magnesium Ferritin Total Bilirubin AST ALT 61 H Alkaline Phosphatase Lactate Dehydrogenase Total Creatine Kinase C-Reactive Protein Total Protein 5.7 L Albumin 2.3 L Triglycerides Arterial Blood Glucose Arterial Blood Ionized Calcium Ur Specific [place] Vancomycin Trough Coronavirus (PCR) 12/13/20 12/14/20 12/14/20 23:37 04:05 04:35 WBC RBC 3.37 L Hgb 10.1 L Hct 30.7 L RDW 15.4 H Plt Count Lymph % (Auto) [place] % (Auto) Lymph # (Auto) [place] # (Auto) Baso # (Auto) Seg Neutrophils % Seg Neuts % (Manual) 93.0 H Lymphocytes % (Manual) 3.0 L Seg Neutrophils # Seg Neutrophils # Man 7.8 H Lymphocytes # (Manual) 0.3 L D-Dimer ABG pH POC ABG pCO2 72.2 H POC ABG pO2 61.5 L ABG pO2 ABG HCO3 ABG O2 Saturation ABG Base Excess ABG Hemoglobin ABG Oxyhemoglobin 89.9 L ABG Sodium 131.4 L ABG Potassium ABG Chloride 91.0 L ABG Glucose 205 H Oxyhemoglobin Carboxyhemoglobin Sodium Potassium Chloride Carbon Dioxide BUN Creatinine Glucose POC Glucose 200 H Hemoglobin A1c Lactic Acid Calcium Magnesium Ferritin Total Bilirubin AST ALT Alkaline Phosphatase Lactate Dehydrogenase Total Creatine Kinase C-Reactive Protein Total Protein Albumin Triglycerides Arterial Blood Glucose 205 H Arterial Blood Ionized Calcium 4.3 L Ur Specific [place] Vancomycin Trough Coronavirus (PCR) 12/14/20 12/14/20 12/14/20 04:35 05:12 11:31 WBC RBC Hgb Hct RDW Plt Count Lymph % (Auto) [place] % (Auto) Lymph # (Auto) [place] # (Auto) Baso # (Auto) Seg Neutrophils % Seg Neuts % (Manual) Lymphocytes % (Manual) Seg Neutrophils # Seg Neutrophils # Man Lymphocytes # (Manual) D-Dimer ABG pH POC ABG pCO2 POC ABG pO2 ABG pO2 ABG HCO3 ABG O2 Saturation ABG Base Excess ABG Hemoglobin ABG Oxyhemoglobin ABG Sodium ABG Potassium ABG Chloride ABG Glucose Oxyhemoglobin Carboxyhemoglobin Sodium 135 L Potassium Chloride 92.5 L Carbon Dioxide 38 H BUN Creatinine 0.2 L Glucose 184 H POC Glucose 176 H 212 H Hemoglobin A1c Lactic Acid Calcium 7.7 L Magnesium Ferritin Total Bilirubin AST ALT Alkaline Phosphatase Lactate Dehydrogenase Total Creatine Kinase C-Reactive Protein Total Protein Albumin Triglycerides Arterial Blood Glucose Arterial Blood Ionized Calcium Ur Specific [place] Vancomycin Trough Coronavirus (PCR) 12/14/20 12/14/20 12/15/20 17:30 23:30 03:19 WBC RBC Hgb Hct RDW Plt Count Lymph % (Auto) [place] % (Auto) Lymph # (Auto) [place] # (Auto) Baso # (Auto) Seg Neutrophils % Seg Neuts % (Manual) Lymphocytes % (Manual) Seg Neutrophils # Seg Neutrophils # Man Lymphocytes # (Manual) D-Dimer ABG pH POC ABG pCO2 62.0 H POC ABG pO2 66.0 L ABG pO2 ABG HCO3 ABG O2 Saturation ABG Base Excess ABG Hemoglobin 10.3 L ABG Oxyhemoglobin ABG Sodium 130.5 L ABG Potassium ABG Chloride 91.0 L ABG Glucose 166 H Oxyhemoglobin Carboxyhemoglobin Sodium Potassium Chloride Carbon Dioxide BUN Creatinine Glucose POC Glucose 222 H 176 H Hemoglobin A1c Lactic Acid Calcium Magnesium Ferritin Total Bilirubin AST ALT Alkaline Phosphatase Lactate Dehydrogenase Total Creatine Kinase C-Reactive Protein Total Protein Albumin Triglycerides Arterial Blood Glucose 166 H Arterial Blood Ionized Calcium 4.4 L Ur Specific [place] Vancomycin Trough Coronavirus (PCR) 12/15/20 12/15/20 12/15/20 05:24 11:39 17:30 WBC RBC Hgb Hct RDW Plt Count Lymph % (Auto) [place] % (Auto) Lymph # (Auto) [place] # (Auto) Baso # (Auto) Seg Neutrophils % Seg Neuts % (Manual) Lymphocytes % (Manual) Seg Neutrophils # Seg Neutrophils # Man Lymphocytes # (Manual) D-Dimer ABG pH POC ABG pCO2 POC ABG pO2 ABG pO2 ABG HCO3 ABG O2 Saturation ABG Base Excess ABG Hemoglobin ABG Oxyhemoglobin ABG Sodium ABG Potassium ABG Chloride ABG Glucose Oxyhemoglobin Carboxyhemoglobin Sodium Potassium Chloride Carbon Dioxide BUN Creatinine Glucose POC Glucose 160 H 140 H 246 H Hemoglobin A1c Lactic Acid Calcium Magnesium Ferritin Total Bilirubin AST ALT Alkaline Phosphatase Lactate Dehydrogenase Total Creatine Kinase C-Reactive Protein Total Protein Albumin Triglycerides Arterial Blood Glucose Arterial Blood Ionized Calcium Ur Specific [place] Vancomycin Trough Coronavirus (PCR) 12/15/20 12/16/20 12/16/20 23:42 03:54 04:46 WBC RBC 3.48 L Hgb 10.6 L Hct 31.5 L RDW 15.8 H Plt Count Lymph % (Auto) [place] % (Auto) Lymph # (Auto) [place] # (Auto) Baso # (Auto) Seg Neutrophils % Seg Neuts % (Manual) Lymphocytes % (Manual) Seg Neutrophils # Seg Neutrophils # Man Lymphocytes # (Manual) D-Dimer ABG pH POC ABG pCO2 63.6 H POC ABG pO2 55.0 L ABG pO2 ABG HCO3 ABG O2 Saturation ABG Base Excess ABG Hemoglobin 11.1 L ABG Oxyhemoglobin 87.3 L ABG Sodium 130.7 L ABG Potassium ABG Chloride 89.0 L ABG Glucose 211 H Oxyhemoglobin Carboxyhemoglobin Sodium Potassium Chloride Carbon Dioxide BUN Creatinine Glucose POC Glucose 139 H Hemoglobin A1c Lactic Acid Calcium Magnesium Ferritin Total Bilirubin AST ALT Alkaline Phosphatase Lactate Dehydrogenase Total Creatine Kinase C-Reactive Protein Total Protein Albumin Triglycerides Arterial Blood Glucose 211 H Arterial Blood Ionized Calcium 4.3 L Ur Specific [place] Vancomycin Trough Coronavirus (PCR) 12/16/20 12/16/20 12/16/20 04:46 05:34 11:40 WBC RBC Hgb Hct RDW Plt Count Lymph % (Auto) [place] % (Auto) Lymph # (Auto) [place] # (Auto) Baso # (Auto) Seg Neutrophils % Seg Neuts % (Manual) Lymphocytes % (Manual) Seg Neutrophils # Seg Neutrophils # Man Lymphocytes # (Manual) D-Dimer ABG pH POC ABG pCO2 POC ABG pO2 ABG pO2 ABG HCO3 ABG O2 Saturation ABG Base Excess ABG Hemoglobin ABG Oxyhemoglobin ABG Sodium ABG Potassium ABG Chloride ABG Glucose Oxyhemoglobin Carboxyhemoglobin Sodium 134 L Potassium Chloride 89.7 L Carbon Dioxide 38 H BUN Creatinine < 0.2 L Glucose 203 H POC Glucose 155 H 239 H Hemoglobin A1c Lactic Acid Calcium 7.5 L Magnesium Ferritin Total Bilirubin AST ALT Alkaline Phosphatase Lactate Dehydrogenase Total Creatine Kinase C-Reactive Protein Total Protein Albumin Triglycerides Arterial Blood Glucose Arterial Blood Ionized Calcium Ur Specific [place] Vancomycin Trough Coronavirus (PCR) 12/16/20 12/16/20 12/17/20 17:42 23:45 03:59 WBC RBC Hgb Hct RDW Plt Count Lymph % (Auto) [place] % (Auto) Lymph # (Auto) [place] # (Auto) Baso # (Auto) Seg Neutrophils % Seg Neuts % (Manual) Lymphocytes % (Manual) Seg Neutrophils # Seg Neutrophils # Man Lymphocytes # (Manual) D-Dimer ABG pH POC ABG pCO2 71.9 H POC ABG pO2 57.5 L ABG pO2 ABG HCO3 ABG O2 Saturation ABG Base Excess ABG Hemoglobin 10.8 L ABG Oxyhemoglobin 87.7 L ABG Sodium 131.5 L ABG Potassium ABG Chloride 90.0 L ABG Glucose 199 H Oxyhemoglobin Carboxyhemoglobin Sodium Potassium Chloride Carbon Dioxide BUN Creatinine Glucose POC Glucose 228 H 187 H Hemoglobin A1c Lactic Acid Calcium Magnesium Ferritin Total Bilirubin AST ALT Alkaline Phosphatase Lactate Dehydrogenase Total Creatine Kinase C-Reactive Protein Total Protein Albumin Triglycerides Arterial Blood Glucose 199 H Arterial Blood Ionized Calcium 4.4 L Ur Specific [place] Vancomycin Trough Coronavirus (PCR) 12/17/20 12/17/20 12/17/20 05:35 11:55 17:25 WBC RBC Hgb Hct RDW Plt Count Lymph % (Auto) [place] % (Auto) Lymph # (Auto) [place] # (Auto) Baso # (Auto) Seg Neutrophils % Seg Neuts % (Manual) Lymphocytes % (Manual) Seg Neutrophils # Seg Neutrophils # Man Lymphocytes # (Manual) D-Dimer ABG pH POC ABG pCO2 POC ABG pO2 ABG pO2 ABG HCO3 ABG O2 Saturation ABG Base Excess ABG Hemoglobin ABG Oxyhemoglobin ABG Sodium ABG Potassium ABG Chloride ABG Glucose Oxyhemoglobin Carboxyhemoglobin Sodium 134 L Potassium Chloride 89.6 L Carbon Dioxide 44 H* BUN Creatinine 0.2 L Glucose 280 H POC Glucose 159 H 181 H Hemoglobin A1c Lactic Acid Calcium 8.0 L Magnesium 1.60 L Ferritin Total Bilirubin AST ALT Alkaline Phosphatase Lactate Dehydrogenase Total Creatine Kinase C-Reactive Protein Total Protein 6.2 L Albumin 2.1 L Triglycerides Arterial Blood Glucose Arterial Blood Ionized Calcium Ur Specific [place] Vancomycin Trough Coronavirus (PCR) 12/17/20 12/17/20 12/18/20 17:25 17:51 00:12 WBC RBC Hgb Hct RDW Plt Count Lymph % (Auto) [place] % (Auto) Lymph # (Auto) [place] # (Auto) Baso # (Auto) Seg Neutrophils % Seg Neuts % (Manual) Lymphocytes % (Manual) Seg Neutrophils # Seg Neutrophils # Man Lymphocytes # (Manual) D-Dimer ABG pH POC ABG pCO2 POC ABG pO2 ABG pO2 ABG HCO3 ABG O2 Saturation ABG Base Excess ABG Hemoglobin ABG Oxyhemoglobin ABG Sodium ABG Potassium ABG Chloride ABG Glucose Oxyhemoglobin Carboxyhemoglobin Sodium Potassium Chloride Carbon Dioxide BUN Creatinine Glucose POC Glucose 260 H 197 H Hemoglobin A1c Lactic Acid Calcium Magnesium Ferritin Total Bilirubin AST ALT Alkaline Phosphatase Lactate Dehydrogenase Total Creatine Kinase 47 L C-Reactive Protein Total Protein Albumin Triglycerides Arterial Blood Glucose Arterial Blood Ionized Calcium Ur Specific [place] Vancomycin Trough Coronavirus (PCR) 12/18/20 12/18/20 12/18/20 03:56 04:32 04:32 WBC RBC 2.88 L Hgb 8.6 L Hct 26.0 L RDW 15.6 H Plt Count Lymph % (Auto) [place] % (Auto) Lymph # (Auto) [place] # (Auto) Baso # (Auto) Seg Neutrophils % Seg Neuts % (Manual) Lymphocytes % (Manual) Seg Neutrophils # Seg Neutrophils # Man Lymphocytes # (Manual) D-Dimer ABG pH POC ABG pCO2 78.0 H POC ABG pO2 52.3 L ABG pO2 ABG HCO3 ABG O2 Saturation ABG Base Excess ABG Hemoglobin 11.7 L ABG Oxyhemoglobin 84.9 L ABG Sodium 131.6 L ABG Potassium ABG Chloride 89.0 L ABG Glucose 191 H Oxyhemoglobin Carboxyhemoglobin Sodium 134 L Potassium Chloride 89.5 L Carbon Dioxide 43 H* BUN Creatinine < 0.2 L Glucose 182 H POC Glucose Hemoglobin A1c Lactic Acid Calcium 8.1 L Magnesium Ferritin Total Bilirubin AST ALT Alkaline Phosphatase Lactate Dehydrogenase Total Creatine Kinase C-Reactive Protein Total Protein Albumin Triglycerides Arterial Blood Glucose 191 H Arterial Blood Ionized Calcium 4.4 L Ur Specific [place] Vancomycin Trough Coronavirus (PCR) 12/18/20 12/18/20 12/18/20 05:19 08:27 11:37 WBC RBC Hgb Hct RDW Plt Count Lymph % (Auto) [place] % (Auto) Lymph # (Auto) [place] # (Auto) Baso # (Auto) Seg Neutrophils % Seg Neuts % (Manual) Lymphocytes % (Manual) Seg Neutrophils # Seg Neutrophils # Man Lymphocytes # (Manual) D-Dimer ABG pH POC ABG pCO2 POC ABG pO2 ABG pO2 ABG HCO3 ABG O2 Saturation ABG Base Excess ABG Hemoglobin ABG Oxyhemoglobin ABG Sodium ABG Potassium ABG Chloride ABG Glucose Oxyhemoglobin Carboxyhemoglobin Sodium 131 L Potassium Chloride 89.0 L Carbon Dioxide 41 H* BUN Creatinine < 0.2 L Glucose 176 H POC Glucose 165 H 174 H Hemoglobin A1c Lactic Acid Calcium 7.5 L Magnesium Ferritin Total Bilirubin AST ALT Alkaline Phosphatase Lactate Dehydrogenase Total Creatine Kinase C-Reactive Protein Total Protein Albumin Triglycerides Arterial Blood Glucose Arterial Blood Ionized Calcium Ur Specific [place] Vancomycin Trough Coronavirus (PCR) 12/18/20 12/18/20 12/19/20 17:26 23:19 03:41 WBC RBC Hgb Hct RDW Plt Count Lymph % (Auto) [place] % (Auto) Lymph # (Auto) [place] # (Auto) Baso # (Auto) Seg Neutrophils % Seg Neuts % (Manual) Lymphocytes % (Manual) Seg Neutrophils # Seg Neutrophils # Man Lymphocytes # (Manual) D-Dimer ABG pH POC ABG pCO2 75.4 H POC ABG pO2 50.7 L ABG pO2 ABG HCO3 ABG O2 Saturation ABG Base Excess ABG Hemoglobin 10.4 L ABG Oxyhemoglobin 84.2 L ABG Sodium 131.1 L ABG Potassium ABG Chloride 89.0 L ABG Glucose 194 H Oxyhemoglobin Carboxyhemoglobin 1.6 H Sodium Potassium Chloride Carbon Dioxide BUN Creatinine Glucose POC Glucose 243 H 212 H Hemoglobin A1c Lactic Acid Calcium Magnesium Ferritin Total Bilirubin AST ALT Alkaline Phosphatase Lactate Dehydrogenase Total Creatine Kinase C-Reactive Protein Total Protein Albumin Triglycerides Arterial Blood Glucose 194 H Arterial Blood Ionized Calcium 4.3 L Ur Specific [place] Vancomycin Trough Coronavirus (PCR) 12/19/20 12/19/20 12/19/20 05:26 11:56 18:17 WBC RBC Hgb Hct RDW Plt Count Lymph % (Auto) [place] % (Auto) Lymph # (Auto) [place] # (Auto) Baso # (Auto) Seg Neutrophils % Seg Neuts % (Manual) Lymphocytes % (Manual) Seg Neutrophils # Seg Neutrophils # Man Lymphocytes # (Manual) D-Dimer ABG pH POC ABG pCO2 POC ABG pO2 ABG pO2 ABG HCO3 ABG O2 Saturation ABG Base Excess ABG Hemoglobin ABG Oxyhemoglobin ABG Sodium ABG Potassium ABG Chloride ABG Glucose Oxyhemoglobin Carboxyhemoglobin Sodium Potassium Chloride Carbon Dioxide BUN Creatinine Glucose POC Glucose 166 H 173 H 212 H Hemoglobin A1c Lactic Acid Calcium Magnesium Ferritin Total Bilirubin AST ALT Alkaline Phosphatase Lactate Dehydrogenase Total Creatine Kinase C-Reactive Protein Total Protein Albumin Triglycerides Arterial Blood Glucose Arterial Blood Ionized Calcium Ur Specific [place] Vancomycin Trough Coronavirus (PCR) 12/19/20 Unknown WBC RBC Hgb Hct RDW Plt Count Lymph % (Auto) [place] % (Auto) Lymph # (Auto) [place] # (Auto) Baso # (Auto) Seg Neutrophils % Seg Neuts % (Manual) Lymphocytes % (Manual) Seg Neutrophils # Seg Neutrophils # Man Lymphocytes # (Manual) D-Dimer ABG pH POC ABG pCO2 POC ABG pO2 ABG pO2 ABG HCO3 ABG O2 Saturation ABG Base Excess ABG Hemoglobin ABG Oxyhemoglobin ABG Sodium ABG Potassium ABG Chloride ABG Glucose Oxyhemoglobin Carboxyhemoglobin Sodium 133 L Potassium Chloride 89.9 L Carbon Dioxide 39 H BUN Creatinine 0.2 L Glucose 197 H POC Glucose Hemoglobin A1c Lactic Acid Calcium 7.6 L Magnesium Ferritin Total Bilirubin AST ALT Alkaline Phosphatase Lactate Dehydrogenase Total Creatine Kinase C-Reactive Protein Total Protein Albumin Triglycerides Arterial Blood Glucose Arterial Blood Ionized Calcium Ur Specific [place] Vancomycin Trough Coronavirus (PCR) Chest x-ray: report reviewed, image reviewed
[2020-12-20] MEDS: VANCOMYCIN 1,500 MG in SODIUM CHLORIDE 0.9% 500 ML 500 ML IV SCH ×2 (03:37→15:48)
[2020-12-20] MEDS: fentaNYL DRIP Premix 2,000 MCG/100 ML BAG IV SCH ×4 (03:37→22:43)
[2020-12-20] MEDS: MIDAZOLAM 100 MG in SODIUM CHLORIDE 0.9% 80 ML IV SCH ×2 (03:38→20:24)
[2020-12-20] MEDS: CEFEPIME/NS 2 GM/100 ML 2 GM/100 ML BAG IV SCH ×3 (05:01→21:55)
[2020-12-20 06:02] LABS: Hematocrit 29.2 % (35.5-45.6); Hemoglobin 9.6 gm/dl (11.8-15.2); Mean Corpuscular HGB Conc 33 % (32-34); Mean Corpuscular Volume 91 fl (84-94); Platelet Count 309 K/mm3 (140-440); Red Blood Count 3.21 M/mm3 (3.65-5.03); Red Cell Distribution Width 15.8 % (13.2-15.2)
[2020-12-20 06:32] LABS: Blood Urea Nitrogen 10 mg/dL (9-20); Calcium 7.6 mg/dL (8.4-10.2); Hemolysis Index 5
[2020-12-20 06:35] LABS: BUN/Creatinine Ratio 50
[2020-12-20] MEDS: INSULIN LISPRO 100 UNIT/ML SUB-Q SCH ×4 (06:41→18:45)
[2020-12-20] MEDS: ACETAMINOPHEN 325 MG TAB PO PRN (07:41)
[2020-12-20] MEDS: NORepinephrine/NS 4 MG-250 ML 4 MG/250 ML BAG IV SCH ×3 (07:45→22:43)
--- NOTE | 2020-12-20 09:07 | Progress Note ---
Assessment and Plan Assessment and plan: 59-year-old female who is smoker who presented to [facility] with shortness of breath cough fever weakness for 1 to 2 days prior to arrival. Per EMS the patient was severely hypoxic with saturations in the low 80s. With all oxygen and nonrebreather came down to low 90s. ID, pulmonary, CCM were consulted. Cultures 2/ tracheal aspirate with MRSA, / blood cultures x2 with no growth to date, / sputum culture with Klebsiella pneumonia, 12/06 Covid PCR positive, 12/13 Covid PCR positive, Septic Shock COVID-19 pneumonia Acute hypoxic hypercapnic respiratory failure Bilateral pneumothorax Pneumomediastinum with subcutaneous emphysema Elevated D-dimer Transaminitis secondary to Covid 19 Klebsiella pneumonia Type 2 diabetes mellitus Severe protien calorie malnutrition secondary to critical illness 2: Patient continues on BiPAP throughout the night. Labs are remarkable for hypoxia with improving renal function but lactic acidosis without fever. CTA has been ordered to rule out pulmonary embolism. I agree with increasing enoxaparin to twice daily full dose for empiric treatment of pulmonary embolism. Will obtain ID consultation on further evaluation for possible underlying pneumonia versus COVID-19. We will also obtain echocardiogram for evaluation. Will discontinue fluids at this time. 2/2; Continue supportive care, Patient remains with very guarded prognosis, remains on BiPAP, continues on Remdesivir, and steroids. Will continue anticoagulation, unable to get CTA Chest due to patients unstable clinical status. Will adjust insulin for better blood glucose 2/3: Continues on BIPAP, no clear improvement at this time. Will continue steroids therapy Remdesivir and also Full anticoagulation at this time. Will update family. Discussed with Cardiology Nurse. 2/4: Taking a break from the BiPAP on high flow and nonrebreather 100% with saturation of 90% becomes hypoxic with any movement. Cardiology Nurse input noted will get a dose of Lasix today. Will await a discussion with ID for possibly increasing steroid. I updated Patient's Cousin, Tayla Esquivel who is the emergency check writer salesperson. Blood sugar remains fluctuating secondary to steriods, Encouraged Prone positioning. Noted with mild hyponatremia we will continue to monitor and manage 2/5: Continue supportive care wean oxygen as tolerated prognosis remains guarded. Encouraged to progress as tolerated. Awaiting labs today. Discussed with nursing staff and patient at bedside. 2/6: Discontinued Dexamethasone as Solumedrol started secondary to increased oxygen demand. Will give additional insulin for better control. Continue oxygen support patient still on high flow. Prognosis still guarded 11/22: Patient was intubated and placed on mechanical ventilation. Continue current medication. Will check a.m. labs today. Noted still with hypotension. Doubt septic shock at this time as patient has no new fever. Will adjust insulin for better blood sugar control. 11/23: Patient admitted with COVID-19 despite all efforts patient remains severely hypoxic and now is intubated. Cardiology Nurse input noted. Blood pressure marginal at this time. Very poor prognosis. Continue Solu-Medrol. 11/24. Patient remains very hypoxic. Blood pressure borderline. Plan for initiation of paralytic agents as per prenatal teacher. Patient may need to be tr ansferred if no improvement. 11/26. Off paralytics. Remains intubated. On steroids. Prognosis is poor. 11/27. Chest xray shows pneumomediastinum and subcutaneous emphysema. Surgery consulted. Plan for chest tube placement. Sputum culture grew MRSA. Patient started on vancomycin per ID. 11/28. Right chest tube placed yesterday by surgery. Repeat chest x-ray showed left small pneumothorax. Plan for chest tube placement on the left today. Remains on paralytic agents. 11/29. Remains intubated on vent. Had left chest tube placed yesterday. Vitals reviewed. Critical care following 11/30/ Remains on mechanical ventilation. Worsening hypoxia. Bilateral chest tubes in place. Vitals reviewed. Labs reviewed 12/01: Chest tube and mechanical ventilation remains in place, poor prognosis, FIO2 remains at 90%, adjust insulin for better blood glucose control 12/02: Patient remains on full ventilatory support and steroids, still with worsening leukocytosis ?inflammatory or infectious vs steroids. Continue vancomycin. 12/03; slowly weaning, 12/04: Still on the vent FiO2 down to 65% PEEP remains at 18. Still with poor prognosis. 12/05: Patient continues on full ventilatory support per prenatal teacher PEEP remains at 18. Still with hypercapnic respiratory failure. FiO2 down to 60% this mo rning. Chest tube to suction still weaning off steroids in the deliberation ongoing for possible a third chest tube as last documentation by surgery shows no plan for it at this time. Continue to manage insulin for better blood sugar control. 12/06:weaned down to 60%, continue supportive care, unable to wean, 12/07; patient remains intubated on ventilatory support, chest tubes in place trach and PEG when patient's Covid test is negative,Per surgery. 12/08; Patient remains intubated remains with hypercapnia and hypoxia. Chest tube still remain in place. He is off antibiotics at this time. Continue steroids which is likely resultant to the leukocytosis. Cardiology Nurse and surgeon following ID input is noted. Prognosis remains guarded to poor 12/10; patient remains intubated on vent, unable to wean awaiting trach and PEG when Covid test is negative, Continue current management 12/11; patient awaiting trach and PEG when Covid test is negative, vent dependent, poor prognosis 12/12; clinically no change, vent dependent, Patient is critically ill with very poor prognosis, awaiting trach and PEG when COVID-19 test turns negative. Plan discussed with nursing staff. Caregivers have discussed with patient's family periodically 12/13: Patient is critically ill with very poor prognosis, awaiting trach and PEG when COVID-19 test turns negative. Plan discussed with nursing staff. Caregivers have discussed with patient's family periodically 12/14: Increase UOP which we will monitor and replete as needed. Patient remain hypoxemic on ABG despite 100 FiO2, remains on fentanyl, precedex, versed and levo gtt. 12/15: Patient remains sedated on fentanyl at 3 mcg, Versed at 30 mg, de xamethasone 0.3 and was on Levophed 6 mcg this morning. Patient's vent settings rate of 30, tidal volume 425, PEEP of 18, FiO2 of 85. RT attempted to wean as tolerated. No acute events reported overnight. Bilateral chest tubes to wall suction. 12/16: Overnight the patient was noted to be bradycardic, Precedex drip was increased to 0.6/fentanyl to 4 mcg/Versed 5 mg, bilateral chest tube to suction. Current vent settings for 425/30/18/0.75, RT to wean as tolerated 3: Patient's T-max overnight was 101.2, obtain CXR today, blood culture x2 per ID. Patient remains on fentanyl, Versed, Precedex and Levophed. Current vent settings AC 425/30/18/0.75, RT to wean as tolerated. Continue steroid taper. 12/18: Patient remains sedated on fentanyl, Versed, Precedex and has vasopressor support of Levophed, current vent settings 425/30/18/0.75 with bilateral chest tubes to wall suction. Patient's blood culture from 12/17 grew gram-positive cocci in pairs and chains however the patient is on vancomycin and cefepime. We will continue to follow for speciation and sensitivity. 12/19: Unfortunately remains on full ventilatory support prognosis remains very poor. No new fever however since 12/17. Continue to follow cultures not finalized yet. Antibiotics per ID critical care management input noted. Patient remains on high FiO2 and PEEP at this time. 12/20: Still with intermittent fever, likely secondary to covid 19, still with hyponatremia, continue with tube feed. cultures with coagulas negative staph, await further ID input. Continues on abx. The high probability of a clinically significant, sudden or life threatening deterioration of the [multi] system(s) required my full and direct attention, intervention and personal management. The aggregate critical care time was [35] minutes. This time is in addition to time spent performing reported procedures but includes the following: [x] Data Review and interpretation [x] Patient assessment and monitoring of vital signs [x] Documentation [x] Medication orders and management History Interval history: Patient remains intubated, sedated, and with bilateral chest tubes. No adverse event reported to me overnight from nursing staff. No new fever noted. Hospitalist Physical - Physical exam Narrative exam: VITAL SIGNS: Reviewed. GENERAL: The patient appears normally developed, chronically ill-appearing se dated, generalized anasarca puffiness of the face HEAD: No signs of head trauma. EYES: Pupils are equal. EARS: Unable to examine MOUTH: Oropharynx with ET tube in place mild ulceration pressure lower lip NECK: No adenopathy, no JVD. CHEST: Chest with diminished breath sounds bilaterally. Chest tubes in place no wheezes, rales, or rhonchi. CARDIAC: Regular rate and rhythm. S1 and S2, without murmurs, gallops, or rubs. VASCULAR: Trace edema. Peripheral pulses normal and equal in all extremities. ABDOMEN: Soft, non tender and non distended. No rebound or guarding, and no masses palpated. Bowel Sounds normal. MUSCULOSKELETAL: Extremities without clubbing, cyanosis. Trace edema. NEUROLOGIC EXAM: Sedated PSYCHIATRIC: Sedated SKIN: detail exam as documented in skin assessment - Constitutional Vitals: Temp Pulse Resp BP Pulse Ox 101.3 F H 119 H 30 H 107/56 93 12/20/20 07:38 12/20/20 08:00 12/20/20 08:00 12/20/20 08:00 12/20/20 08:00 General appearance: Present: no acute distress, well-nourished, other (Vent dependent) HEART Score - HEART Score Troponin: Troponin T < 0.010 ng/mL (0.00-0.029) 12/11/20 06:30 Results - Labs CBC & Chem 7: 12/20/20 04:00 12/20/20 04:00 Labs: Laboratory Last Values WBC 9.4 K/mm3 (4.5-11.0) 12/20/20 04:00 RBC 3.21 M/mm3 (3.65-5.03) L 12/20/20 04:00 Hgb 9.6 gm/dl (11.8-15.2) L 12/20/20 04:00 Hct 29.2 % (35.5-45.6) L 12/20/20 04:00 MCV 91 fl (84-94) 12/20/20 04:00 MCH 30 pg (28-32) 12/20/20 04:00 MCHC 33 % (32-34) 12/20/20 04:00 RDW 15.8 % (13.2-15.2) H 12/20/20 04:00 Plt Count 309 K/mm3 (140-440) 12/20/20 04:00 Lymph % (Auto) 2.0 % (13.4-35.0) L 11/27/20 06:25 [place] % (Auto) 5.2 % (0.0-7.3) 11/27/20 06:25 Eos % (Auto) 0.0 % (0.0-4.3) 11/27/20 06:25 Baso % (Auto) 0.1 % (0.0-1.8) 11/27/20 06:25 Lymph # (Auto) 0.3 K/mm3 (1.2-5.4) L 11/27/20 06:25 [place] # (Auto) 0.7 K/mm3 (0.0-0.8) 11/27/20 06:25 Eos # (Auto) 0.0 K/mm3 (0.0-0.4) 11/27/20 06:25 Baso # (Auto) 0.0 K/mm3 (0.0-0.1) 11/27/20 06:25 Add Manual Diff Complete 12/14/20 04:35 Total Counted 100 12/14/20 04:35 Seg Neutrophils % Paint Stockman 12/14/20 04:35 Seg Neuts % (Manual) 93.0 % (40.0-70.0) H 12/14/20 04:35 Band Neutrophils % 2.0 % 12/13/20 11:30 Lymphocytes % (Manual) 3.0 % (13.4-35.0) L 12/14/20 04:35 Monocytes % (Manual) 4.0 % (0.0-7.3) 12/14/20 04:35 Nucleated RBC % Not Reportable 12/14/20 04:35 Seg Neutrophils # 12.7 K/mm3 (1.8-7.7) H 11/27/20 06:25 Seg Neutrophils # Man 7.8 K/mm3 (1.8-7.7) H 12/14/20 04:35 Band Neutrophils # 0.0 K/mm3 12/14/20 04:35 Lymphocytes # (Manual) 0.3 K/mm3 (1.2-5.4) L 12/14/20 04:35 Abs React Lymphs (Man) 0.0 K/mm3 12/14/20 04:35 Monocytes # (Manual) 0.3 K/mm3 (0.0-0.8) 12/14/20 04:35 Eosinophils # (Manual) 0.0 K/mm3 (0.0-0.4) 12/14/20 04:35 Basophils # (Manual) 0.0 K/mm3 (0.0-0.1) 12/14/20 04:35 Metamyelocytes # 0.0 K/mm3 12/14/20 04:35 Myelocytes # 0.0 K/mm3 12/14/20 04:35 Promyelocytes # 0.0 K/mm3 12/14/20 04:35 Blast Cells # 0.0 K/mm3 12/14/20 04:35 WBC Morphology Not Reportable 12/14/20 04:35 Hypersegmented Neuts Not Reportable 12/14/20 04:35 Hyposegmented Neuts Not Reportable 12/14/20 04:35 Hypogranular Neuts Not Reportable 12/14/20 04:35 Smudge Cells Not Reportable 12/14/20 04:35 Toxic Granulation Not Reportable 12/14/20 04:35 Toxic Vacuolation Not Reportable 12/14/20 04:35 Dohle Bodies Not Reportable 12/14/20 04:35 Pelger-Huet Anomaly Not Reportable 12/14/20 04:35 Tony Rods Not Reportable 12/14/20 04:35 Platelet Estimate Consistent w auto 12/14/20 04:35 Clumped Platelets Not Reportable 12/14/20 04:35 Plt Clumps, EDTA Not Reportable 12/14/20 04:35 Large Platelets Not Reportable 12/14/20 04:35 Giant Platelets Not Reportable 12/14/20 04:35 Platelet Satelliting Not Reportable 12/14/20 04:35 Plt Morphology Comment Not Reportable 12/14/20 04:35 RBC Morphology Not Reportable 12/14/20 04:35 Dimorphic RBCs Not Reportable 12/14/20 04:35 Polychromasia Not Reportable 12/14/20 04:35 Hypochromasia Few 12/14/20 04:35 Poikilocytosis Not Reportable 12/14/20 04:35 Anisocytosis Few 12/14/20 04:35 Microcytosis Not Reportable 12/14/20 04:35 Macrocytosis Not Reportable 12/14/20 04:35 Spherocytes Not Reportable 12/14/20 04:35 Pappenheimer Bodies Not Reportable 12/14/20 04:35 Sickle Cells Not Reportable 12/14/20 04:35 Target Cells Not Reportable 12/14/20 04:35 Tear Drop Cells Not Reportable 12/14/20 04:35 Ovalocytes Not Reportable 12/14/20 04:35 Stomatocytes 1+ 12/03/20 04:35 Helmet Cells Not Reportable 12/14/20 04:35 Cabrera-Ferguson Bodies Not Reportable 12/14/20 04:35 [place] Rings Not Reportable 12/14/20 04:35 Henrry Cells Not Reportable 12/14/20 04:35 Bite Cells Not Reportable 12/14/20 04:35 Crenated Cell Not Reportable 12/14/20 04:35 Elliptocytes Not Reportable 12/14/20 04:35 Acanthocytes (Spur) Not Reportable 12/14/20 04:35 Rouleaux Not Reportable 12/14/20 04:35 Hemoglobin C Crystals Not Reportable 12/14/20 04:35 Schistocytes Not Reportable 12/14/20 04:35 Malaria parasites Not Reportable 12/14/20 04:35 Yovani Bodies Not Reportable 12/14/20 04:35 Hem Pathologist Commnt No 12/14/20 04:35 D-Dimer 926.11 ng/mlDDU (0-234) H 11/26/20 06:04 ABG pH 7.387 (7.320-7.450) 12/20/20 03:26 POC ABG pCO2 74.2 mmHg (32.0-48.0) H 12/20/20 03:26 ABG pCO2 81.3 mm Hg 12/08/20 04:12 POC ABG pO2 51.3 mmHg (83-108) L 12/20/20 03:26 ABG pO2 69.7 mm Hg (80.0-90.0) L 12/08/20 04:12 POC ABG HCO3 43.6 12/20/20 03:26 ABG HCO3 50.1 mmol/L (20.0-26.0) H 12/08/20 04:12 ABG O2 Saturation 95.4 % (95.0-99.0) 12/08/20 04:12 ABG O2 Content 13.0 (0.0-44) 12/07/20 05:20 POC ABG Base Excess 15.9 12/20/20 03:26 ABG Base Excess 21.6 mmol/L (-2.0-3.0) H 12/08/20 04:12 ABG Hemoglobin 10.0 (12.0-17.5) L 12/20/20 03:26 ABG Oxyhemoglobin 84.2 (94-98) L 12/19/20 03:41 ABG Carboxyhemoglobin 2.0 % (0.0-5.0) 12/08/20 04:12 ABG Methemoglobin 0.3 (0.0-1.5) 12/19/20 03:41 ABG Sodium 128.9 mmol/L (136.0-145.0) L 12/20/20 03:26 ABG Potassium 4.0 mmol/L (3.40-4.50) 12/20/20 03:26 ABG Chloride 87.0 mmol/L (98-107) L 12/20/20 03:26 ABG Glucose 173 mg/dL (65-95) H 12/20/20 03:26 Oxyhemoglobin 93.2 % (95.0-99.0) L 12/08/20 04:12 Carboxyhemoglobin 1.6 (0.5-1.5) H 12/19/20 03:41 FiO2 85 12/20/20 03:26 Sodium 132 mmol/L (137-145) L 12/20/20 04:00 Potassium 3.9 mmol/L (3.6-5.0) 12/20/20 04:00 Chloride 86.0 mmol/L (98-107) L 12/20/20 04:00 Carbon Dioxide 43 mmol/L (22-30) H* 12/20/20 04:00 Anion Gap 7 mmol/L 12/20/20 04:00 BUN 10 mg/dL (9-20) 12/20/20 04:00 Creatinine 0.2 mg/dL (0.8-1.3) L 12/20/20 04:00 Estimated GFR > 60 ml/min 12/20/20 04:00 BUN/Creatinine Ratio 50 % 12/20/20 04:00 Glucose 193 mg/dL (75-100) H 12/20/20 04:00 POC Glucose 133 mg/dL (70-105) H 12/19/20 23:39 Hemoglobin A1c 11.7 % (4-6) H 11/16/20 05:29 Lactic Acid 2.60 mmol/L (0.7-2.0) H* 11/16/20 05:29 Calcium 7.6 mg/dL (8.4-10.2) L 12/20/20 04:00 Phosphorus 2.60 mg/dL (2.5-4.5) 12/17/20 17:25 Magnesium 1.60 mg/dL (1.7-2.3) L 12/17/20 17:25 Ferritin 778.8 ng/mL (30.0-300.0) H 11/26/20 04:00 Total Bilirubin 0.40 mg/dL (0.1-1.2) 12/17/20 17:25 AST 29 units/L (5-40) 12/17/20 17:25 ALT 47 units/L (7-56) 12/17/20 17:25 Alkaline Phosphatase 119 units/L (35-129) 12/17/20 17:25 Lactate Dehydrogenase 288 units/L (91-180) H 11/26/20 04:00 Total Creatine Kinase 47 units/L (55-170) L 12/17/20 17:25 CK-MB (CK-2) 1.8 ng/mL (0.0-4.0) 12/17/20 17:25 CK-MB (CK-2) Rel Index 3.8 (0-4) 12/17/20 17:25 Troponin T < 0.010 ng/mL (0.00-0.029) 12/11/20 06:30 C-Reactive Protein 1.40 mg/dL (0.00-1.30) H 11/26/20 04:00 NT-Pro-B Natriuret Pep 107.2 pg/mL (0-900) 11/17/20 10:21 Total Protein 6.2 g/dL (6.3-8.2) L 12/17/20 17:25 Albumin 2.1 g/dL (3.9-5) L 12/17/20 17:25 Albumin/Globulin Ratio 0.5 % 12/17/20 17:25 Triglycerides 150 mg/dL (2-149) H 12/12/20 05:16 Procalcitonin 0.16 ng/mL (<0.15) 12/12/20 05:16 Arterial Blood Glucose 173 mg/dL (65-95) H 12/20/20 03:26 Arterial Blood Ionized Calcium 4.1 mg/dL (4.6-5.3) L 12/20/20 03:26 Urine Color Faustina (Yellow) 11/16/20 01:45 Urine Turbidity Slightly-cloudy (Clear) 11/16/20 01:45 Urine pH 6.0 (5.0-7.0) 11/16/20 01:45 Ur Specific [place] 1.037 (1.003-1.030) H 11/16/20 01:45 Urine Protein 30 mg/dl mg/dL (Negative) 11/16/20 01:45 Urine Glucose (UA) >=500 mg/dL (Negative) 11/16/20 01:45 Urine Ketones 20 mg/dL (Negative) 11/16/20 01:45 Urine Blood Neg (Negative) 11/16/20 01:45 Urine Nitrite Neg (Negative) 11/16/20 01:45 Urine Bilirubin Neg (Negative) 11/16/20 01:45 Urine Urobilinogen 2.0 mg/dL (<2.0) 11/16/20 01:45 Ur Leukocyte Esterase Neg (Negative) 11/16/20 01:45 Urine WBC (Auto) 2.0 /HPF (0.0-6.0) 11/16/20 01:45 Urine RBC (Auto) 1.0 /HPF (0.0-6.0) 11/16/20 01:45 Urine Bacteria (Auto) 1+ /HPF (Negative) 11/16/20 01:45 Urine Mucus 3+ /HPF 11/16/20 01:45 Vancomycin Trough 16.9 ug/mL (5.0-20.0) 12/19/20 15:46 Coronavirus (PCR) Positive (Negative) A 12/13/20 10:00 Hepatitis A IgM Ab Non-reactive (NonReactive) 12/17/20 21:40 Hep Bs Antigen Non-reactive (Negative) 12/17/20 21:40 Hep B Core IgM Ab Non-reactive (NonReactive) 12/17/20 21:40 Hepatitis C Antibody Non-reactive (NonReactive) 12/17/20 21:40 HIV 1&2 Antibody Rapid Non react (Non React) 12/17/20 21:40 HIV P24 Antigen Non react (Non React) 12/17/20 21:40 Microbiology: Microbiology 12/17/20 Unknown Peripheral/Venous Blood Culture - Preliminary 12/17/20 Unknown Peripheral/Venous Blood Culture - Preliminary Coag Negative Staphylococcus - Diagnostic Impressions Diagnostic Impressions: Echocardiogram 11/16/20 10:34 Transthoracic Echocardiogram Indication: Shortness of breath-COVID BP: 108/77 HR: 92 Conclusions *Global left ventricular systolic function is normal. *The estimated ejection fraction is 60-65%. *Mild to moderate concentric left ventricular hypertrophy is observed. *There is trace of mitral regurgitation. *There is mild to moderate tricuspid regurgitation. *There is evidence of mild pulmonary hypertension. *The right ventricular systolic pressure is calculated at 31 mmHg. Findings Left Ventricle: The left ventricular chamber size is normal. Mild to moderate concentric left ventricular hypertrophy is observed. Global left ventricular systolic function is normal. The estimated ejection fraction is 60-65%. Left Atrium: The left atrial chamber size is normal. Right Ventricle: The right ventricular cavity size is normal. The right ventricular global systolic function is normal. Right Atrium: The right atrial cavity size is normal. Aortic Valve: The aortic valve is trileaflet. There is no evidence of aortic regurgitation. There is no evidence of aortic stenosis. Mitral Valve: The mitral valve leaflets appear normal. There is trace of mitral regurgitation. There is no evidence of mitral stenosis. Tricuspid Valve: The tricuspid valve leaflets are normal. There is mild to moderate tricuspid regurgitation. The right ventricular systolic pressure is calculated at 31 mmHg. There is evidence of mild pulmonary hypertension. Pulmonic Valve: There is trace pulmonic regurgitation. Pericardium: There is no pericardial effusion. Aorta: There is no dilatation of the ascending aorta. There is no dilatation of the aortic root. Venous: The inferior vena cava appears normal in size. Measurements Chambers 2D Name Value Normal Range IVSd (2D) 0.81 cm (0.6 - 1.1) LVPWd (2D) 0.79 cm (0.6 - 1.1) LVIDd (2D) 4.22 cm (3.7 - 5.6) LVIDs (2D) 3.1 cm (2 - 3.8) LV FS (2D) 26.71 % - EF Teichholz (2D) 52.55 % - Ao root diameter (2D) 3.34 cm (2 - 3.7) Volumes/Mass Name Value Normal Range LA ESV SP 4CH (A/L) 10.87 ml - LA ESV SP 2CH (A/L) 18.74 ml - LA ESV BP (A/L) 16.38 ml - LA ESV BP (A/L) index 8.62 ml/m2 - LA ESV SP 4CH (MOD) 10.32 ml - LA ESV SP 2CH (MOD) 17.66 ml - LA ESV BP (MOD) 15.12 ml - LA ESV BP (MOD) index 7.96 ml/m2 - Diastolic/Systolic Function Name Value Normal Range MV E-wave Vmax 0.76 m/sec - MV deceleration time 133.63 msec - MV A-wave Vmax 1.1 m/sec - MV E:A ratio 0.69 ratio - Aortic Valve Name Value Normal Range AV Vmax 1.44 m/sec - AV VTI 22.94 cm - AV peak gradient 8.33 mmHg - AV mean gradient 4.73 mmHg - LVOT diameter 2.2 cm - LVOT Vmax 1.04 m/sec - LVOT VTI 18.88 cm - LVOT peak gradient 4.34 mmHg - LVOT mean gradient 2.31 mmHg - SV LVOT 72.05 ml - EVANGELISTA (continuity Vmax) 2.75 cm2 - EVANGELISTA (continuity VTI) 3.14 cm2 - Tricuspid Valve Name Value Normal Range TR Vmax 2.64 m/sec - TR peak gradient 28 mmHg - RAP 3 mmHg - RVSP 31 mmHg - Gupta/IV: Voiding Method Indwelling Catheter IV Catheter Type [Left Peripheral IV Antecubital] Active Medications - Current Medications Current Medications: Generic Name Dose Route Start Last Admin Trade Name Freq PRN Reason Stop Dose Admin Acetaminophen 650 mg 11/15/20 23:55 12/20/20 07:41 Acetaminophen 325 Mg Tab PO 650 mg Q4H PRN Administration Pain MILD(1-3)/Fever >100.5/BUTTS Lipase/Protease/Amylase 1 each 11/23/20 11:53 12/05/20 23:45 Lipase 10,500/Protease 25,000/Amylase 43,750 (Units) Dr Slater FEEDTUBE 1 each PRN PRN Administration For Clogged Feeding Tube Dextrose 25 ml 12/10/20 05:21 12/10/20 05:24 Dextrose 50% In Water (25gm) 50 Ml Syringe IV 25 ml Q30MIN PRN Administration Hypoglycemia Protocol Enoxaparin Sodium 40 mg 12/03/20 22:00 12/19/20 21:08 Enoxaparin 40 Mg/0.4 Ml Inj SUB-Q 40 mg QDAY@2200 RAEANN Administration Famotidine 20 mg 12/16/20 10:00 12/19/20 21:12 Famotidine 20 Mg Tab PO 20 mg BID RAEANN Administration Hydrophilic Ointment 1 applic 11/21/20 21:53 11/30/20 21:33 Lip Therapy Vaseline TP 1 applic Q2HR PRN Administration Dry Lips Midazolam HCl 100 mg/ Sodium 100 mls @ 2 mls/hr 11/21/20 22:00 12/20/20 03:38 Chloride IV 5 mg/hr TITR RAEANN 5 mls/hr Administration Protocol 2 MG/HR Norepinephrine 4 mg in 250 mls @ 7.5 mls/hr 11/22/20 17:00 12/20/20 08:15 Levophed Drip 4 Mg/Ns 250 Ml IV 4 mcg/min TITR RAEANN 15 mls/hr Titration Protocol 2 MCG/MIN Propofol 1,000 mg in 100 mls @ 2.175 mls/hr 11/27/20 12:00 12/11/20 17:55 Diprivan 10 Mg/Ml IV 0 mcg/kg/min TITR RAEANN 0 mls/hr Titration Protocol 5 MCG/KG/MIN Dexmedetomidine HCl 400 mcg/ 104 mls @ 4.441 mls/hr 12/10/20 13:00 12/20/20 07:34 Sodium Chloride IV 0.8 mcg/kg/hr TITRATE RAEANN 17.763 mls/hr Administration Protocol 0.2 MCG/KG/HR Cefepime HCl 2 gm in 100 mls @ 200 mls/hr 12/17/20 14:00 12/20/20 05:01 Cefepime/Ns 2 Gm/100 Ml IV 200 mls/hr Q8HR RAEANN Administration Protocol Vancomycin HCl 1,500 mg/ 530 mls @ 333.333 mls/hr 12/17/20 16:00 12/20/20 03:37 Sodium Chloride IV 333.333 mls/hr Q12H RAEANN Administration Fentanyl Citrate 2,000 mcg in 100 mls @ 3.9 mls/hr 12/18/20 19:00 12/20/20 03:37 Fentanyl Drip Premix IV 4 mcg/kg/hr TITR RAEANN 15.6 mls/hr Administration Protocol 1 MCG/KG/HR Insulin Glargine 8 units 12/17/20 13:52 12/19/20 21:08 Insulin Glargine 100 Units/Ml SUB-Q 8 units QHS RAEANN Administration Insulin Human Lispro 0 unit 11/22/20 06:00 12/20/20 06:41 Insulin Lispro 100 Unit/Ml SUB-Q 3 unit Q6HR RAEANN Administration Protocol Metoclopramide HCl 10 mg 11/15/20 23:55 Metoclopramide 10 Mg/2 Ml Inj IV Q6H PRN Nausea And Vomiting Multi-Ingred Cream/Lotion/Oil/Oint 1 applic 11/21/20 21:53 Mineral Oil/Petrolatum, White Ophth Oint 3.5 Gm OU Q4HR PRN Dry Eye(s) Ondansetron HCl 4 mg 11/15/20 23:55 Ondansetron 4 Mg/2 Ml Inj IV Q8H PRN Nausea And Vomiting Prednisone 10 mg 12/19/20 10:00 12/19/20 10:02 Prednisone 10 Mg Tab PO 12/22/20 10:01 10 mg QDAY RAEANN Administration Senna/Docusate Sodium 2 tab 12/03/20 13:00 12/19/20 21:12 Sennosides/Docusate Sodium 8.6/50 Mg Tab PO 2 tab BID RAEANN Administration Simple Syrup 15 ml 11/23/20 11:53 Simple Syrup 15 Ml FEEDTUBE PRN PRN Hypoglycemia Simple Syrup 30 ml 11/23/20 11:53 Simple Syrup 15 Ml FEEDTUBE PRN PRN Hypoglycemia Sodium Bicarbonate 325 mg 11/23/20 11:53 12/05/20 23:46 Sodium Bicarbonate 325 Mg Tab FEEDTUBE 325 mg PRN PRN Administration For Clogged Feeding Tube Sodium Chloride 10 ml 11/16/20 10:00 12/19/20 21:13 Sodium Chloride 0.9% 10 Ml Flush Syringe IV 10 ml BID RAEANN Administration Sodium Chloride 10 ml 11/15/20 23:55 12/03/20 00:21 Sodium Chloride 0.9% 10 Ml Flush Syringe IV 10 ml PRN PRN Administration LINE FLUSH Nutrition/Malnutrition Assess - Dietary Evaluation Nutrition/Malnutrition Findings: Nutrition Notes Start: 11/20/20 12 :03 Freq: Status: Active Protocol: Document 12/16/20 12:37 AL (Rec: 12/16/20 12:44 AL [id number]) Co-Sign 12/16/20 12:37 LP Nutrition Notes Initial or Follow up Reassessment Current Diagnosis Diabetes,Sepsis,Respiratory Failure Other Pertinent Diagnosis Bilat pneu, COVID-19 (+) Current Diet Glucerna 1.2 at 60 ml/hr Labs/Tests BG 203 Pertinent Medications Solumedrol Levophed Height 5 ft 6 in Weight 78.3 kg Usual Body Weight 80.5 kg [place] Body Weight (kg) 64.54 BMI 27.8 Weight change and time frame 10% wt loss/ 7days noted. Weight Status Overweight Subjective/Other Information FU for TF tolerance. Pt tolerating TF at 60 ml/hr ( goal rate). Will increase to 65 ml/hr to reflect wt change. Percent of energy/protein needs met: 100%/100% Burn Absent Trauma Absent GI Symptoms Last BM Difficulty In Swallowing,Chewing Current % PO Negligible Minimum of two criteria Yes Energy Intake (severe) < or equal to 50% Estimated Energy Requirement > or equal to 5 days Interpretation of Weight Loss (severe) >2% in 1 week Fluid Accumulation Moderate to Severe (severe) #3 Nutrition Diagnosis Inadequate oral intake Diagnosis Progress(for reassessment Continues documentation) #2 Nutrition Diagnosis Malnutrition Diagnosis Progress(for reassessment Continues documentation) #1 Nutrition Diagnosis Unintended weight loss Diagnosis Progress(for reassessment Continues documentation) Is patient on ventilator? Yes Is Patient Ambulatory and/or Out of Bed No REE-([facility]-confined to bed) [phone] Calculation Used for Recommendations [facility] Additional Notes Protein: 87-145 g/day (1.2-2g/ kg) Fluid: 1ml/kcal or per MD Nutrition Intervention Change Diet Order: Continue TF Nutrition Support: Glucerna 1.2 at 65 ml/hr. Flush 125 ml q4h Kcal 1,872 Protein (gm) 93 Fluid (mL) 1,255 Goal #1 TF Goal #2 Meet at least 75% of energy and protein needs via TF Anticipated Discharge Needs: Unknown at the time Follow-Up By: 12/21/20 Additional Comments FU for TF tolerance - Malnutrition Assessment Minimum of two criteria: Yes - Attestation Statement I have reviewed and agreed w/ Malnutrition eval & tx plan: Yes
[2020-12-20] MEDS: FAMOTIDINE 20 MG TAB PO SCH ×2 (09:08→21:54)
[2020-12-20] MEDS: predniSONE 10 MG TAB PO SCH (09:10)
[2020-12-20] MEDS: SENNOSIDES/DOCUSATE SODIUM 8.6/50 MG TAB PO SCH ×2 (10:13→21:55)
[2020-12-20] MEDS: INSULIN GLARGINE 100 UNITS/ML SUB-Q SCH (22:02)
[2020-12-20] MEDS: ENOXAPARIN 40 MG/0.4 ML INJ SUB-Q SCH (22:02)
--- NOTE | 2020-12-20 22:31 | Progress Note ---
Assessment and Plan Imp: 1. Covid-19 2. Viral pneumonia 3. ARDS 4. Acute respiratory failure, hypoxia 5. Sepsis 6. Bilateral spontaneous PTX Rec: 1. ABX per ID; f/u cultures 2. Wean FiO2 followed by PEEP; goal sats 88% or > 3. Wean pressors to keep MAP > 65 4. TFs, pepcid, Lovenox 5. Continue bilateral chest tubes 6. Prognosis guarded to poor 7. Complex decision-making Subjective Date of service: 12/20/20 Principal diagnosis: COVID-19 Interval history: No events. Sedated on precedex and fentanyl. On pressors. Cannot give history. On PEEP of 18 and FiO2 of 85%. Active Medications Acetaminophen (Acetaminophen 325 Mg Tab) 650 mg PO Q4H PRN PRN Reason: Pain MILD(1-3)/Fever >100.5/BUTTS Last Admin: 12/20/20 07:41 Dose: 650 mg Documented by: Lipase/Protease/Amylase (Lipase 10,500/Protease 25,000/Amylase 43,750 (Units) Dr Slater) 1 each FEEDTUBE PRN PRN PRN Reason: For Clogged Feeding Tube Last Admin: 12/05/20 23:45 Dose: 1 each Documented by: Dextrose (Dextrose 50% In Water (25gm) 50 Ml Syringe) 25 ml IV Q30MIN PRN; Protocol PRN Reason: Hypoglycemia Last Admin: 12/10/20 05:24 Dose: 25 ml Documented by: Enoxaparin Sodium (Enoxaparin 40 Mg/0.4 Ml Inj) 40 mg SUB-Q QDAY@2200 [facility] Last Admin: 12/20/20 22:02 Dose: 40 mg Documented by: Famotidine (Famotidine 20 Mg Tab) 20 mg PO BID [facility] Last Admin: 12/20/20 21:54 Dose: 20 mg Documented by: Hydrophilic Ointment (Lip Therapy Vaseline) 1 applic TP Q2HR PRN PRN Reason: Dry Lips Last Admin: 11/30/20 21:33 Dose: 1 applic Documented by: Midazolam HCl 100 mg/ Sodium (Chloride) 100 mls @ 2 mls/hr IV TITR [facility]; Protocol Last Admin: 12/20/20 20:24 Dose: 5 mg/hr, 5 mls/hr Documented by: Norepinephrine (Levophed Drip 4 Mg/Ns 250 Ml) 4 mg in 250 mls @ 7.5 mls/hr IV TITR [facility]; Protocol Last Titration: 12/20/20 18:30 Dose: 8 mcg/min, 30 mls/hr Documented by: Propofol (Diprivan 10 Mg/Ml) 1,000 mg in 100 mls @ 2.175 mls/hr IV TITR [facility]; Protocol Last Titration: 12/11/20 17:55 Dose: 0 mcg/kg/min, 0 mls/hr Documented by: Dexmedetomidine HCl 400 mcg/ (Sodium Chloride) 104 mls @ 4.441 mls/hr IV TITRATE [facility]; Protocol Last Admin: 12/20/20 13:40 Dose: 0.8 mcg/kg/hr, 17.763 mls/hr Documented by: Cefepime HCl (Cefepime/Ns 2 Gm/100 Ml) 2 gm in 100 mls @ 200 mls/hr IV Q8HR [facility]; Protocol Last Admin: 12/20/20 21:55 Dose: 200 mls/hr Documented by: Vancomycin HCl 1,500 mg/ (Sodium Chloride) 530 mls @ 333.333 mls/hr IV Q12H [facility] Last Admin: 12/20/20 15:48 Dose: 333.333 mls/hr Documented by: Fentanyl Citrate (Fentanyl Drip Premix) 2,000 mcg in 100 mls @ 3.9 mls/hr IV TITR [facility]; Protocol Last Admin: 12/20/20 16:40 Dose: 4 mcg/kg/hr, 15.6 mls/hr Documented by: Insulin Glargine (Insulin Glargine 100 Units/Ml) 8 units SUB-Q QHS [facility] Last Admin: 12/20/20 22:02 Dose: 8 units Documented by: Insulin Human Lispro (Insulin Lispro 100 Unit/Ml) 0 unit SUB-Q Q6HR [facility]; Protocol Last Admin: 12/20/20 18:45 Dose: 4 unit Documented by: Metoclopramide HCl (Metoclopramide 10 Mg/2 Ml Inj) 10 mg IV Q6H PRN PRN Reason: Nausea And Vomiting Multi-Ingred Cream/Lotion/Oil/Oint (Mineral Oil/Petrolatum, White Ophth Oint 3.5 Gm) 1 applic OU Q4HR PRN PRN Reason: Dry Eye(s) Ondansetron HCl (Ondansetron 4 Mg/2 Ml Inj) 4 mg IV Q8H PRN PRN Reason: Nausea And Vomiting Prednisone (Prednisone 10 Mg Tab) 10 mg PO QDAY [facility] Stop: 12/22/20 10:01 Last Admin: 12/20/20 09:10 Dose: 10 mg Documented by: Senna/Docusate Sodium (Sennosides/Docusate Sodium 8.6/50 Mg Tab) 2 tab PO BID [facility] Last Admin: 12/20/20 21:55 Dose: 2 tab Documented by: Simple Syrup (Simple Syrup 15 Ml) 15 ml FEEDTUBE PRN PRN PRN Reason: Hypoglycemia Simple Syrup (Simple Syrup 15 Ml) 30 ml FEEDTUBE PRN PRN PRN Reason: Hypoglycemia Sodium Bicarbonate (Sodium Bicarbonate 325 Mg Tab) 325 mg FEEDTUBE PRN PRN PRN Reason: For Clogged Feeding Tube Last Admin: 12/05/20 23:46 Dose: 325 mg Documented by: Sodium Chloride (Sodium Chloride 0.9% 10 Ml Flush Syringe) 10 ml IV BID [facility] Last Admin: 12/20/20 21:55 Dose: 10 ml Documented by: Sodium Chloride (Sodium Chloride 0.9% 10 Ml Flush Syringe) 10 ml IV PRN PRN PRN Reason: LINE FLUSH Last Admin: 12/03/20 00:21 Dose: 10 ml Documented by: Objective Vital Signs - 12hr 12/20/20 12/20/20 12/20/20 10:45 11:00 11:15 Temperature Pulse Rate 77 97 H 95 H Respiratory 19 26 H 20 Rate Blood Pressure 117/61 127/70 125/64 O2 Sat by Pulse 91 87 92 Oximetry 12/20/20 12/20/20 12/20/20 11:19 11:30 11:45 Temperature Pulse Rate 94 H 90 83 Respiratory 30 H 30 H Rate Blood Pressure 125/64 106/58 105/56 O2 Sat by Pulse 93 95 94 Oximetry 12/20/20 12/20/20 12/20/20 11:55 12:00 12:15 Temperature 98.8 F Pulse Rate 73 76 Respiratory 30 H 30 H Rate Blood Pressure 109/60 114/65 O2 Sat by Pulse 95 96 Oximetry 12/20/20 12/20/20 12/20/20 12:30 12:45 13:00 Temperature Pulse Rate 72 74 73 Respiratory 30 H 30 H 30 H Rate Blood Pressure 111/64 113/64 114/66 O2 Sat by Pulse 96 95 96 Oximetry 12/20/20 12/20/20 12/20/20 13:15 13:30 13:45 Temperature Pulse Rate 78 72 73 Respiratory 30 H 30 H 21 Rate Blood Pressure 119/65 111/64 113/58 O2 Sat by Pulse 92 95 97 Oximetry 12/20/20 12/20/20 12/20/20 14:00 14:15 14:30 Temperature Pulse Rate 77 75 78 Respiratory 30 H 30 H 30 H Rate Blood Pressure 115/63 113/61 103/59 O2 Sat by Pulse 95 98 97 Oximetry 12/20/20 12/20/20 12/20/20 14:45 15:00 15:04 Temperature Pulse Rate 76 71 68 Respiratory 30 H 30 H Rate Blood Pressure 106/60 112/64 112/64 O2 Sat by Pulse 98 99 99 Oximetry 12/20/20 12/20/20 12/20/20 15:15 15:30 15:45 Temperature Pulse Rate 68 68 68 Respiratory 30 H 30 H 30 H Rate Blood Pressure 108/64 108/68 110/69 O2 Sat by Pulse 96 98 98 Oximetry 12/20/20 12/20/20 12/20/20 16:00 16:15 16:30 Temperature 98.6 F Pulse Rate 66 68 65 Respiratory 30 H 30 H 30 H Rate Blood Pressure 97/56 106/63 108/65 O2 Sat by Pulse 98 99 99 Oximetry 12/20/20 12/20/20 12/20/20 16:45 17:00 17:15 Temperature Pulse Rate 66 67 68 Respiratory 30 H 30 H 30 H Rate Blood Pressure 103/66 98/59 107/66 O2 Sat by Pulse 99 99 97 Oximetry 12/20/20 12/20/20 12/20/20 17:30 17:45 18:00 Temperature Pulse Rate 75 82 81 Respiratory 31 H 24 30 H Rate Blood Pressure 122/66 120/60 116/67 O2 Sat by Pulse 91 86 91 Oximetry 12/20/20 12/20/20 12/20/20 18:15 18:30 18:45 Temperature Pulse Rate 78 76 70 Respiratory 30 H 30 H 30 H Rate Blood Pressure 106/61 99/61 100/60 O2 Sat by Pulse 99 99 99 Oximetry 12/20/20 12/20/20 12/20/20 19:00 19:15 19:30 Temperature Pulse Rate 70 68 71 Respiratory 30 H 30 H 30 H Rate Blood Pressure 98/58 95/61 102/60 O2 Sat by Pulse 98 97 94 Oximetry 12/20/20 12/20/20 12/20/20 19:45 19:48 19:53 Temperature Pulse Rate 74 67 72 Respiratory 30 H Rate Blood Pressure 100/57 100/57 O2 Sat by Pulse 90 98 Oximetry 12/20/20 12/20/20 12/20/20 19:56 20:00 20:15 Temperature 99.7 F H Pulse Rate 71 76 Respiratory 29 H 30 H Rate Blood Pressure 99/60 99/58 O2 Sat by Pulse 97 94 Oximetry 12/20/20 12/20/20 12/20/20 20:30 20:45 21:00 Temperature Pulse Rate 75 78 73 Respiratory 30 H 30 H 23 Rate Blood Pressure 94/56 90/59 97/57 O2 Sat by Pulse 95 95 68 L Oximetry 12/20/20 12/20/20 12/20/20 21:15 21:30 21:45 Temperature Pulse Rate 73 75 75 Respiratory 30 H 30 H 30 H Rate Blood Pressure 96/57 100/58 96/58 O2 Sat by Pulse 93 92 98 Oximetry 12/20/20 12/20/20 22:00 22:15 Temperature Pulse Rate 74 75 Respiratory 22 30 H Rate Blood Pressure 95/59 115/65 O2 Sat by Pulse 91 93 Oximetry Constitutional: other (on vent orally intubated) ENT: other (Now intubated) Ascultation: Bilateral: other (coarse BS bilaterally) Percussion: Bilateral: not dull Cardiovascular: regular rate and rhythm (no mrg) Gastrointestinal: normoactive bowel sounds, soft, non-tender, non-distended Integumentary: normal Extremities: no cyanosis, no edema, pink and warm Neurologic: other (sedated) Psychiatric: other (sedated) CBC and BMP: 12/20/20 04:00 12/20/20 04:00 ABG, PT/INR, D-dimer: ABG ABG pH 7.387 (7.320-7.450) 12/20/20 03:26 POC ABG pCO2 74.2 mmHg (32.0-48.0) H 12/20/20 03:26 ABG pCO2 81.3 mm Hg 12/08/20 04:12 POC ABG pO2 51.3 mmHg (83-108) L 12/20/20 03:26 ABG pO2 69.7 mm Hg (80.0-90.0) L 12/08/20 04:12 POC ABG HCO3 43.6 12/20/20 03:26 ABG O2 Saturation 95.4 % (95.0-99.0) 12/08/20 04:12 PT/INR, D-dimer D-Dimer 926.11 ng/mlDDU (0-234) H 11/26/20 06:04 Abnormal lab findings: Abnormal Labs 11/15/20 11/15/20 11/15/20 10:39 10:39 10:39 WBC 14.3 H RBC 5.17 H Hgb Hct RDW Plt Count Lymph % (Auto) 7.8 L [place] % (Auto) 7.6 H Lymph # (Auto) 1.1 L [place] # (Auto) 1.1 H Baso # (Auto) Seg Neutrophils % 83.3 H Seg Neuts % (Manual) Lymphocytes % (Manual) Seg Neutrophils # 11.9 H Seg Neutrophils # Man Lymphocytes # (Manual) D-Dimer ABG pH POC ABG pCO2 POC ABG pO2 ABG pO2 ABG HCO3 ABG O2 Saturation ABG Base Excess ABG Hemoglobin ABG Oxyhemoglobin ABG Sodium ABG Potassium ABG Chloride ABG Glucose Oxyhemoglobin Carboxyhemoglobin Sodium 128 L Potassium Chloride 96.0 L Carbon Dioxide BUN Creatinine 0.7 L Glucose 238 H POC Glucose Hemoglobin A1c Lactic Acid 4.10 H* Calcium 7.0 L Magnesium Ferritin Total Bilirubin 1.40 H AST 49 H ALT 70 H Alkaline Phosphatase Lactate Dehydrogenase 663 H Total Creatine Kinase C-Reactive Protein 19.80 H Total Protein Albumin 2.9 L Triglycerides Arterial Blood Glucose Arterial Blood Ionized Calcium Ur Specific [place] Vancomycin Trough Coronavirus (PCR) 11/15/20 11/15/20 11/15/20 10:39 10:39 11:20 WBC RBC Hgb Hct RDW Plt Count Lymph % (Auto) [place] % (Auto) Lymph # (Auto) [place] # (Auto) Baso # (Auto) Seg Neutrophils % Seg Neuts % (Manual) Lymphocytes % (Manual) Seg Neutrophils # Seg Neutrophils # Man Lymphocytes # (Manual) D-Dimer > 99356 H ABG pH POC ABG pCO2 29.9 L POC ABG pO2 137.3 H ABG pO2 ABG HCO3 ABG O2 Saturation ABG Base Excess ABG Hemoglobin ABG Oxyhemoglobin ABG Sodium 126.5 L ABG Potassium ABG Chloride ABG Glucose 248 H Oxyhemoglobin Carboxyhemoglobin Sodium Potassium Chloride Carbon Dioxide BUN Creatinine Glucose POC Glucose Hemoglobin A1c Lactic Acid Calcium Magnesium Ferritin 672.8 H Total Bilirubin AST ALT Alkaline Phosphatase Lactate Dehydrogenase Total Creatine Kinase C-Reactive Protein Total Protein Albumin Triglycerides Arterial Blood Glucose 248 H Arterial Blood Ionized Calcium 4.1 L Ur Specific [place] Vancomycin Trough Coronavirus (PCR) 11/15/20 11/15/20 11/16/20 13:41 23:41 01:45 WBC RBC Hgb Hct RDW Plt Count Lymph % (Auto) [place] % (Auto) Lymph # (Auto) [place] # (Auto) Baso # (Auto) Seg Neutrophils % Seg Neuts % (Manual) Lymphocytes % (Manual) Seg Neutrophils # Seg Neutrophils # Man Lymphocytes # (Manual) D-Dimer ABG pH POC ABG pCO2 POC ABG pO2 ABG pO2 ABG HCO3 ABG O2 Saturation ABG Base Excess ABG Hemoglobin ABG Oxyhemoglobin ABG Sodium ABG Potassium ABG Chloride ABG Glucose Oxyhemoglobin Carboxyhemoglobin Sodium Potassium Chloride Carbon Dioxide BUN Creatinine Glucose POC Glucose 284 H Hemoglobin A1c Lactic Acid 2.30 H* Calcium Magnesium Ferritin Total Bilirubin AST ALT Alkaline Phosphatase Lactate Dehydrogenase Total Creatine Kinase C-Reactive Protein Total Protein Albumin Triglycerides Arterial Blood Glucose Arterial Blood Ionized Calcium Ur Specific [place] 1.037 H Vancomycin Trough Coronavirus (PCR) 11/16/20 11/16/20 11/16/20 05:29 05:29 05:29 WBC 12.9 H RBC Hgb Hct RDW Plt Count Lymph % (Auto) 4.5 L [place] % (Auto) Lymph # (Auto) 0.6 L [place] # (Auto) Baso # (Auto) 0.2 H Seg Neutrophils % 89.8 H Seg Neuts % (Manual) Lymphocytes % (Manual) Seg Neutrophils # 11.5 H Seg Neutrophils # Man Lymphocytes # (Manual) D-Dimer ABG pH POC ABG pCO2 POC ABG pO2 ABG pO2 ABG HCO3 ABG O2 Saturation ABG Base Excess ABG Hemoglobin ABG Oxyhemoglobin ABG Sodium ABG Potassium ABG Chloride ABG Glucose Oxyhemoglobin Carboxyhemoglobin Sodium 131 L Potassium Chloride Carbon Dioxide 21 L BUN 23 H Creatinine 0.6 L Glucose 342 H POC Glucose Hemoglobin A1c Lactic Acid 2.60 H* Calcium 7.0 L Magnesium Ferritin Total Bilirubin AST ALT Alkaline Phosphatase Lactate Dehydrogenase Total Creatine Kinase C-Reactive Protein Total Protein Albumin 2.4 L Triglycerides Arterial Blood Glucose Arterial Blood Ionized Calcium Ur Specific [place] Vancomycin Trough Coronavirus (PCR) 11/16/20 11/16/20 11/16/20 05:29 08:11 12:11 WBC RBC Hgb Hct RDW Plt Count Lymph % (Auto) [place] % (Auto) Lymph # (Auto) [place] # (Auto) Baso # (Auto) Seg Neutrophils % Seg Neuts % (Manual) Lymphocytes % (Manual) Seg Neutrophils # Seg Neutrophils # Man Lymphocytes # (Manual) D-Dimer ABG pH POC ABG pCO2 POC ABG pO2 ABG pO2 ABG HCO3 ABG O2 Saturation ABG Base Excess ABG Hemoglobin ABG Oxyhemoglobin ABG Sodium ABG Potassium ABG Chloride ABG Glucose Oxyhemoglobin Carboxyhemoglobin Sodium Potassium Chloride Carbon Dioxide BUN Creatinine Glucose POC Glucose 329 H 320 H Hemoglobin A1c 11.7 H Lactic Acid Calcium Magnesium Ferritin Total Bilirubin AST ALT Alkaline Phosphatase Lactate Dehydrogenase Total Creatine Kinase C-Reactive Protein Total Protein Albumin Triglycerides Arterial Blood Glucose Arterial Blood Ionized Calcium Ur Specific [place] Vancomycin Trough Coronavirus (PCR) 11/16/20 11/16/20 11/16/20 16:13 21:29 Unknown WBC RBC Hgb Hct RDW Plt Count Lymph % (Auto) [place] % (Auto) Lymph # (Auto) [place] # (Auto) Baso # (Auto) Seg Neutrophils % Seg Neuts % (Manual) Lymphocytes % (Manual) Seg Neutrophils # Seg Neutrophils # Man Lymphocytes # (Manual) D-Dimer ABG pH POC ABG pCO2 POC ABG pO2 ABG pO2 ABG HCO3 ABG O2 Saturation ABG Base Excess ABG Hemoglobin ABG Oxyhemoglobin ABG Sodium ABG Potassium ABG Chloride ABG Glucose Oxyhemoglobin Carboxyhemoglobin Sodium Potassium Chloride Carbon Dioxide BUN Creatinine Glucose POC Glucose 257 H 376 H Hemoglobin A1c Lactic Acid Calcium Magnesium Ferritin Total Bilirubin AST ALT Alkaline Phosphatase Lactate Dehydrogenase Total Creatine Kinase C-Reactive Protein Total Protein Albumin Triglycerides Arterial Blood Glucose Arterial Blood Ionized Calcium Ur Specific [place] Vancomycin Trough Coronavirus (PCR) Positive A 11/17/20 11/17/20 11/17/20 07:42 12:07 17:25 WBC RBC Hgb Hct RDW Plt Count Lymph % (Auto) [place] % (Auto) Lymph # (Auto) [place] # (Auto) Baso # (Auto) Seg Neutrophils % Seg Neuts % (Manual) Lymphocytes % (Manual) Seg Neutrophils # Seg Neutrophils # Man Lymphocytes # (Manual) D-Dimer ABG pH POC ABG pCO2 POC ABG pO2 ABG pO2 ABG HCO3 ABG O2 Saturation ABG Base Excess ABG Hemoglobin ABG Oxyhemoglobin ABG Sodium ABG Potassium ABG Chloride ABG Glucose Oxyhemoglobin Carboxyhemoglobin Sodium Potassium Chloride Carbon Dioxide BUN Creatinine Glucose POC Glucose 231 H 380 H 302 H Hemoglobin A1c Lactic Acid Calcium Magnesium Ferritin Total Bilirubin AST ALT Alkaline Phosphatase Lactate Dehydrogenase Total Creatine Kinase C-Reactive Protein Total Protein Albumin Triglycerides Arterial Blood Glucose Arterial Blood Ionized Calcium Ur Specific [place] Vancomycin Trough Coronavirus (PCR) 11/17/20 11/18/20 11/18/20 21:53 04:25 07:45 WBC RBC Hgb Hct RDW Plt Count Lymph % (Auto) [place] % (Auto) Lymph # (Auto) [place] # (Auto) Baso # (Auto) Seg Neutrophils % Seg Neuts % (Manual) Lymphocytes % (Manual) Seg Neutrophils # Seg Neutrophils # Man Lymphocytes # (Manual) D-Dimer ABG pH POC ABG pCO2 POC ABG pO2 ABG pO2 ABG HCO3 ABG O2 Saturation ABG Base Excess ABG Hemoglobin ABG Oxyhemoglobin ABG Sodium ABG Potassium ABG Chloride ABG Glucose Oxyhemoglobin Carboxyhemoglobin Sodium 136 L Potassium Chloride Carbon Dioxide BUN 24 H Creatinine 0.6 L Glucose 212 H POC Glucose 293 H 216 H Hemoglobin A1c Lactic Acid Calcium 7.4 L Magnesium Ferritin Total Bilirubin AST 41 H ALT Alkaline Phosphatase 142 H Lactate Dehydrogenase Total Creatine Kinase C-Reactive Protein Total Protein Albumin 2.3 L Triglycerides Arterial Blood Glucose Arterial Blood Ionized Calcium Ur Specific [place] Vancomycin Trough Coronavirus (PCR) 11/18/20 11/18/20 11/18/20 12:28 15:58 21:37 WBC RBC Hgb Hct RDW Plt Count Lymph % (Auto) [place] % (Auto) Lymph # (Auto) [place] # (Auto) Baso # (Auto) Seg Neutrophils % Seg Neuts % (Manual) Lymphocytes % (Manual) Seg Neutrophils # Seg Neutrophils # Man Lymphocytes # (Manual) D-Dimer ABG pH POC ABG pCO2 POC ABG pO2 ABG pO2 ABG HCO3 ABG O2 Saturation ABG Base Excess ABG Hemoglobin ABG Oxyhemoglobin ABG Sodium ABG Potassium ABG Chloride ABG Glucose Oxyhemoglobin Carboxyhemoglobin Sodium Potassium Chloride Carbon Dioxide BUN Creatinine Glucose POC Glucose 165 H 220 H 311 H Hemoglobin A1c Lactic Acid Calcium Magnesium Ferritin Total Bilirubin AST ALT Alkaline Phosphatase Lactate Dehydrogenase Total Creatine Kinase C-Reactive Protein Total Protein Albumin Triglycerides Arterial Blood Glucose Arterial Blood Ionized Calcium Ur Specific [place] Vancomycin Trough Coronavirus (PCR) 11/19/20 11/19/20 11/19/20 05:35 07:40 12:39 WBC RBC Hgb Hct RDW Plt Count Lymph % (Auto) [place] % (Auto) Lymph # (Auto) [place] # (Auto) Baso # (Auto) Seg Neutrophils % Seg Neuts % (Manual) Lymphocytes % (Manual) Seg Neutrophils # Seg Neutrophils # Man Lymphocytes # (Manual) D-Dimer ABG pH POC ABG pCO2 POC ABG pO2 ABG pO2 ABG HCO3 ABG O2 Saturation ABG Base Excess ABG Hemoglobin ABG Oxyhemoglobin ABG Sodium ABG Potassium ABG Chloride ABG Glucose Oxyhemoglobin Carboxyhemoglobin Sodium 132 L Potassium Chloride Carbon Dioxide BUN 25 H Creatinine 0.5 L Glucose 179 H POC Glucose 149 H 306 H Hemoglobin A1c Lactic Acid Calcium 7.5 L Magnesium Ferritin Total Bilirubin AST ALT Alkaline Phosphatase 139 H Lactate Dehydrogenase Total Creatine Kinase C-Reactive Protein Total Protein Albumin 2.4 L Triglycerides Arterial Blood Glucose Arterial Blood Ionized Calcium Ur Specific [place] Vancomycin Trough Coronavirus (PCR) 11/19/20 11/19/20 11/20/20 16:17 21:25 08:30 WBC RBC Hgb Hct RDW Plt Count Lymph % (Auto) [place] % (Auto) Lymph # (Auto) [place] # (Auto) Baso # (Auto) Seg Neutrophils % Seg Neuts % (Manual) Lymphocytes % (Manual) Seg Neutrophils # Seg Neutrophils # Man Lymphocytes # (Manual) D-Dimer ABG pH POC ABG pCO2 POC ABG pO2 ABG pO2 ABG HCO3 ABG O2 Saturation ABG Base Excess ABG Hemoglobin ABG Oxyhemoglobin ABG Sodium ABG Potassium ABG Chloride ABG Glucose Oxyhemoglobin Carboxyhemoglobin Sodium Potassium Chloride Carbon Dioxide BUN Creatinine Glucose POC Glucose 364 H 347 H 141 H Hemoglobin A1c Lactic Acid Calcium Magnesium Ferritin Total Bilirubin AST ALT Alkaline Phosphatase Lactate Dehydrogenase Total Creatine Kinase C-Reactive Protein Total Protein Albumin Triglycerides Arterial Blood Glucose Arterial Blood Ionized Calcium Ur Specific [place] Vancomycin Trough Coronavirus (PCR) 11/20/20 11/20/20 11/20/20 08:50 11:32 16:19 WBC RBC Hgb Hct RDW Plt Count Lymph % (Auto) [place] % (Auto) Lymph # (Auto) [place] # (Auto) Baso # (Auto) Seg Neutrophils % Seg Neuts % (Manual) Lymphocytes % (Manual) Seg Neutrophils # Seg Neutrophils # Man Lymphocytes # (Manual) D-Dimer ABG pH POC ABG pCO2 POC ABG pO2 ABG pO2 ABG HCO3 ABG O2 Saturation ABG Base Excess ABG Hemoglobin ABG Oxyhemoglobin ABG Sodium ABG Potassium ABG Chloride ABG Glucose Oxyhemoglobin Carboxyhemoglobin Sodium 132 L Potassium Chloride 97.6 L Carbon Dioxide BUN 26 H Creatinine 0.5 L Glucose 201 H POC Glucose 296 H 327 H Hemoglobin A1c Lactic Acid Calcium 7.9 L Magnesium Ferritin Total Bilirubin AST ALT Alkaline Phosphatase 137 H Lactate Dehydrogenase Total Creatine Kinase C-Reactive Protein Total Protein Albumin 2.6 L Triglycerides Arterial Blood Glucose Arterial Blood Ionized Calcium Ur Specific [place] Vancomycin Trough Coronavirus (PCR) 11/20/20 11/21/20 11/21/20 22:09 07:59 13:51 WBC RBC Hgb Hct RDW Plt Count Lymph % (Auto) [place] % (Auto) Lymph # (Auto) [place] # (Auto) Baso # (Auto) Seg Neutrophils % Seg Neuts % (Manual) Lymphocytes % (Manual) Seg Neutrophils # Seg Neutrophils # Man Lymphocytes # (Manual) D-Dimer ABG pH POC ABG pCO2 POC ABG pO2 ABG pO2 ABG HCO3 ABG O2 Saturation ABG Base Excess ABG Hemoglobin ABG Oxyhemoglobin ABG Sodium ABG Potassium ABG Chloride ABG Glucose Oxyhemoglobin Carboxyhemoglobin Sodium Potassium Chloride Carbon Dioxide BUN Creatinine Glucose POC Glucose 311 H 218 H 304 H Hemoglobin A1c Lactic Acid Calcium Magnesium Ferritin Total Bilirubin AST ALT Alkaline Phosphatase Lactate Dehydrogenase Total Creatine Kinase C-Reactive Protein Total Protein Albumin Triglycerides Arterial Blood Glucose Arterial Blood Ionized Calcium Ur Specific [place] Vancomycin Trough Coronavirus (PCR) 11/21/20 11/21/20 11/21/20 16:09 21:34 23:00 WBC RBC Hgb Hct RDW Plt Count Lymph % (Auto) [place] % (Auto) Lymph # (Auto) [place] # (Auto) Baso # (Auto) Seg Neutrophils % Seg Neuts % (Manual) Lymphocytes % (Manual) Seg Neutrophils # Seg Neutrophils # Man Lymphocytes # (Manual) D-Dimer ABG pH 7.206 L POC ABG pCO2 59.3 H POC ABG pO2 76.7 L ABG pO2 ABG HCO3 ABG O2 Saturation ABG Base Excess ABG Hemoglobin ABG Oxyhemoglobin ABG Sodium 133.1 L ABG Potassium ABG Chloride ABG Glucose 320 H Oxyhemoglobin Carboxyhemoglobin Sodium Potassium Chloride Carbon Dioxide BUN Creatinine Glucose POC Glucose 239 H 279 H Hemoglobin A1c Lactic Acid Calcium Magnesium Ferritin Total Bilirubin AST ALT Alkaline Phosphatase Lactate Dehydrogenase Total Creatine Kinase C-Reactive Protein Total Protein Albumin Triglycerides Arterial Blood Glucose 320 H Arterial Blood Ionized Calcium Ur Specific [place] Vancomycin Trough Coronavirus (PCR) 11/22/20 11/22/20 11/22/20 04:52 04:52 04:52 WBC RBC Hgb Hct RDW Plt Count Lymph % (Auto) [place] % (Auto) Lymph # (Auto) [place] # (Auto) Baso # (Auto) Seg Neutrophils % Seg Neuts % (Manual) Lymphocytes % (Manual) Seg Neutrophils # Seg Neutrophils # Man Lymphocytes # (Manual) D-Dimer 1858.36 H ABG pH POC ABG pCO2 POC ABG pO2 ABG pO2 ABG HCO3 ABG O2 Saturation ABG Base Excess ABG Hemoglobin ABG Oxyhemoglobin ABG Sodium ABG Potassium ABG Chloride ABG Glucose Oxyhemoglobin Carboxyhemoglobin Sodium Potassium Chloride Carbon Dioxide BUN Creatinine Glucose POC Glucose Hemoglobin A1c Lactic Acid Calcium Magnesium Ferritin 734.2 H Total Bilirubin AST ALT Alkaline Phosphatase Lactate Dehydrogenase 404 H Total Creatine Kinase C-Reactive Protein 2.80 H Total Protein Albumin Triglycerides Arterial Blood Glucose Arterial Blood Ionized Calcium Ur Specific [place] Vancomycin Trough Coronavirus (PCR) 11/22/20 11/22/20 11/22/20 05:12 05:39 11:50 WBC RBC Hgb Hct RDW Plt Count Lymph % (Auto) [place] % (Auto) Lymph # (Auto) [place] # (Auto) Baso # (Auto) Seg Neutrophils % Seg Neuts % (Manual) Lymphocytes % (Manual) Seg Neutrophils # Seg Neutrophils # Man Lymphocytes # (Manual) D-Dimer ABG pH POC ABG pCO2 POC ABG pO2 51.0 L ABG pO2 ABG HCO3 ABG O2 Saturation ABG Base Excess ABG Hemoglobin ABG Oxyhemoglobin ABG Sodium 131.2 L ABG Potassium 4.6 H ABG Chloride ABG Glucose 317 H Oxyhemoglobin Carboxyhemoglobin Sodium Potassium Chloride Carbon Dioxide BUN Creatinine Glucose POC Glucose 340 H 417 H Hemoglobin A1c Lactic Acid Calcium Magnesium Ferritin Total Bilirubin AST ALT Alkaline Phosphatase Lactate Dehydrogenase Total Creatine Kinase C-Reactive Protein Total Protein Albumin Triglycerides Arterial Blood Glucose 317 H Arterial Blood Ionized Calcium 4.4 L Ur Specific [place] Vancomycin Trough Coronavirus (PCR) 11/22/20 11/22/20 11/22/20 12:22 12:22 17:10 WBC 14.4 H RBC Hgb Hct RDW Plt Count Lymph % (Auto) [place] % (Auto) Lymph # (Auto) [place] # (Auto) Baso # (Auto) Seg Neutrophils % Seg Neuts % (Manual) 98.0 H Lymphocytes % (Manual) Seg Neutrophils # Seg Neutrophils # Man 14.1 H Lymphocytes # (Manual) 0.0 L D-Dimer ABG pH POC ABG pCO2 POC ABG pO2 ABG pO2 ABG HCO3 ABG O2 Saturation ABG Base Excess ABG Hemoglobin ABG Oxyhemoglobin ABG Sodium ABG Potassium ABG Chloride ABG Glucose Oxyhemoglobin Carboxyhemoglobin Sodium 132 L Potassium Chloride Carbon Dioxide BUN 36 H Creatinine 0.6 L Glucose 219 H POC Glucose 157 H Hemoglobin A1c Lactic Acid Calcium 7.2 L Magnesium Ferritin Total Bilirubin AST ALT Alkaline Phosphatase Lactate Dehydrogenase Total Creatine Kinase C-Reactive Protein Total Protein Albumin Triglycerides Arterial Blood Glucose Arterial Blood Ionized Calcium Ur Specific [place] Vancomycin Trough Coronavirus (PCR) 11/22/20 11/22/20 11/22/20 18:33 21:44 23:47 WBC RBC Hgb Hct RDW Plt Count Lymph % (Auto) [place] % (Auto) Lymph # (Auto) [place] # (Auto) Baso # (Auto) Seg Neutrophils % Seg Neuts % (Manual) Lymphocytes % (Manual) Seg Neutrophils # Seg Neutrophils # Man Lymphocytes # (Manual) D-Dimer ABG pH POC ABG pCO2 POC ABG pO2 60.8 L ABG pO2 ABG HCO3 ABG O2 Saturation ABG Base Excess ABG Hemoglobin ABG Oxyhemoglobin 88.1 L ABG Sodium 135.1 L ABG Potassium ABG Chloride ABG Glucose 141 H Oxyhemoglobin Carboxyhemoglobin Sodium Potassium Chloride Carbon Dioxide BUN Creatinine Glucose POC Glucose 117 H 123 H Hemoglobin A1c Lactic Acid Calcium Magnesium Ferritin Total Bilirubin AST ALT Alkaline Phosphatase Lactate Dehydrogenase Total Creatine Kinase C-Reactive Protein Total Protein Albumin Triglycerides Arterial Blood Glucose 141 H Arterial Blood Ionized Calcium Ur Specific [place] Vancomycin Trough Coronavirus (PCR) 11/23/20 11/23/20 11/23/20 04:00 04:00 05:23 WBC 14.4 H RBC Hgb Hct RDW Plt Count Lymph % (Auto) [place] % (Auto) Lymph # (Auto) [place] # (Auto) Baso # (Auto) Seg Neutrophils % Seg Neuts % (Manual) Lymphocytes % (Manual) Seg Neutrophils # Seg Neutrophils # Man Lymphocytes # (Manual) D-Dimer ABG pH POC ABG pCO2 POC ABG pO2 ABG pO2 ABG HCO3 ABG O2 Saturation ABG Base Excess ABG Hemoglobin ABG Oxyhemoglobin ABG Sodium ABG Potassium ABG Chloride ABG Glucose Oxyhemoglobin Carboxyhemoglobin Sodium 136 L Potassium Chloride Carbon Dioxide BUN 33 H Creatinine 0.6 L Glucose 115 H POC Glucose 173 H Hemoglobin A1c Lactic Acid Calcium 7.1 L Magnesium Ferritin Total Bilirubin AST 64 H ALT 75 H Alkaline Phosphatase Lactate Dehydrogenase Total Creatine Kinase C-Reactive Protein Total Protein 5.9 L D Albumin 2.4 L Triglycerides Arterial Blood Glucose Arterial Blood Ionized Calcium Ur Specific [place] Vancomycin Trough Coronavirus (PCR) 11/23/20 11/23/20 11/23/20 05:40 11:27 17:10 WBC RBC Hgb Hct RDW Plt Count Lymph % (Auto) [place] % (Auto) Lymph # (Auto) [place] # (Auto) Baso # (Auto) Seg Neutrophils % Seg Neuts % (Manual) Lymphocytes % (Manual) Seg Neutrophils # Seg Neutrophils # Man Lymphocytes # (Manual) D-Dimer ABG pH POC ABG pCO2 POC ABG pO2 56.5 L ABG pO2 ABG HCO3 ABG O2 Saturation ABG Base Excess ABG Hemoglobin ABG Oxyhemoglobin ABG Sodium ABG Potassium ABG Chloride 109.0 H ABG Glucose 114 H Oxyhemoglobin Carboxyhemoglobin Sodium Potassium Chloride Carbon Dioxide BUN Creatinine Glucose POC Glucose 114 H 136 H Hemoglobin A1c Lactic Acid Calcium Magnesium Ferritin Total Bilirubin AST ALT Alkaline Phosphatase Lactate Dehydrogenase Total Creatine Kinase C-Reactive Protein Total Protein Albumin Triglycerides Arterial Blood Glucose 114 H Arterial Blood Ionized Calcium 4.5 L Ur Specific [place] Vancomycin Trough Coronavirus (PCR) 11/24/20 11/24/20 11/24/20 05:14 05:14 05:14 WBC RBC Hgb Hct RDW Plt Count Lymph % (Auto) [place] % (Auto) Lymph # (Auto) [place] # (Auto) Baso # (Auto) Seg Neutrophils % Seg Neuts % (Manual) Lymphocytes % (Manual) Seg Neutrophils # Seg Neutrophils # Man Lymphocytes # (Manual) D-Dimer 1433.39 H ABG pH POC ABG pCO2 POC ABG pO2 ABG pO2 ABG HCO3 ABG O2 Saturation ABG Base Excess ABG Hemoglobin ABG Oxyhemoglobin ABG Sodium ABG Potassium ABG Chloride ABG Glucose Oxyhemoglobin Carboxyhemoglobin Sodium Potassium Chloride Carbon Dioxide BUN Creatinine Glucose POC Glucose Hemoglobin A1c Lactic Acid Calcium Magnesium Ferritin 997.5 H Total Bilirubin AST ALT Alkaline Phosphatase Lactate Dehydrogenase 463 H Total Creatine Kinase C-Reactive Protein Total Protein Albumin Triglycerides Arterial Blood Glucose Arterial Blood Ionized Calcium Ur Specific [place] Vancomycin Trough Coronavirus (PCR) 11/24/20 11/24/20 11/24/20 05:31 05:36 12:05 WBC RBC Hgb Hct RDW Plt Count Lymph % (Auto) [place] % (Auto) Lymph # (Auto) [place] # (Auto) Baso # (Auto) Seg Neutrophils % Seg Neuts % (Manual) Lymphocytes % (Manual) Seg Neutrophils # Seg Neutrophils # Man Lymphocytes # (Manual) D-Dimer ABG pH POC ABG pCO2 POC ABG pO2 57.2 L ABG pO2 ABG HCO3 ABG O2 Saturation ABG Base Excess ABG Hemoglobin ABG Oxyhemoglobin ABG Sodium ABG Potassium ABG Chloride ABG Glucose 180 H Oxyhemoglobin Carboxyhemoglobin Sodium Potassium Chloride Carbon Dioxide BUN Creatinine Glucose POC Glucose 199 H 143 H Hemoglobin A1c Lactic Acid Calcium Magnesium Ferritin Total Bilirubin AST ALT Alkaline Phosphatase Lactate Dehydrogenase Total Creatine Kinase C-Reactive Protein Total Protein Albumin Triglycerides Arterial Blood Glucose 180 H Arterial Blood Ionized Calcium 4.5 L Ur Specific [place] Vancomycin Trough Coronavirus (PCR) 11/24/20 11/24/20 11/24/20 12:14 17:47 23:47 WBC RBC Hgb Hct RDW Plt Count Lymph % (Auto) [place] % (Auto) Lymph # (Auto) [place] # (Auto) Baso # (Auto) Seg Neutrophils % Seg Neuts % (Manual) Lymphocytes % (Manual) Seg Neutrophils # Seg Neutrophils # Man Lymphocytes # (Manual) D-Dimer ABG pH 7.261 L POC ABG pCO2 59.7 H POC ABG pO2 75.7 L ABG pO2 ABG HCO3 ABG O2 Saturation ABG Base Excess ABG Hemoglobin ABG Oxyhemoglobin 92.5 L ABG Sodium ABG Potassium ABG Chloride 108.0 H ABG Glucose 150 H Oxyhemoglobin Carboxyhemoglobin Sodium Potassium Chloride Carbon Dioxide BUN Creatinine Glucose POC Glucose 223 H 179 H Hemoglobin A1c Lactic Acid Calcium Magnesium Ferritin Total Bilirubin AST ALT Alkaline Phosphatase Lactate Dehydrogenase Total Creatine Kinase C-Reactive Protein Total Protein Albumin Triglycerides Arterial Blood Glucose 150 H Arterial Blood Ionized Calcium Ur Specific [place] Vancomycin Trough Coronavirus (PCR) 11/25/20 11/25/20 11/25/20 03:29 05:07 05:15 WBC 13.9 H RBC Hgb Hct RDW Plt Count Lymph % (Auto) [place] % (Auto) Lymph # (Auto) [place] # (Auto) Baso # (Auto) Seg Neutrophils % Seg Neuts % (Manual) 97.0 H Lymphocytes % (Manual) Seg Neutrophils # Seg Neutrophils # Man 13.5 H Lymphocytes # (Manual) 0.0 L D-Dimer ABG pH 7.272 L POC ABG pCO2 69.0 H POC ABG pO2 132.9 H ABG pO2 ABG HCO3 ABG O2 Saturation ABG Base Excess ABG Hemoglobin ABG Oxyhemoglobin ABG Sodium ABG Potassium ABG Chloride ABG Glucose 174 H Oxyhemoglobin Carboxyhemoglobin Sodium Potassium Chloride Carbon Dioxide BUN Creatinine Glucose POC Glucose 168 H Hemoglobin A1c Lactic Acid Calcium Magnesium Ferritin Total Bilirubin AST ALT Alkaline Phosphatase Lactate Dehydrogenase Total Creatine Kinase C-Reactive Protein Total Protein Albumin Triglycerides Arterial Blood Glucose 174 H Arterial Blood Ionized Calcium Ur Specific [place] Vancomycin Trough Coronavirus (PCR) 11/25/20 11/25/20 11/25/20 05:15 11:25 17:35 WBC RBC Hgb Hct RDW Plt Count Lymph % (Auto) [place] % (Auto) Lymph # (Auto) [place] # (Auto) Baso # (Auto) Seg Neutrophils % Seg Neuts % (Manual) Lymphocytes % (Manual) Seg Neutrophils # Seg Neutrophils # Man Lymphocytes # (Manual) D-Dimer ABG pH POC ABG pCO2 POC ABG pO2 ABG pO2 ABG HCO3 ABG O2 Saturation ABG Base Excess ABG Hemoglobin ABG Oxyhemoglobin ABG Sodium ABG Potassium ABG Chloride ABG Glucose Oxyhemoglobin Carboxyhemoglobin Sodium Potassium Chloride Carbon Dioxide BUN 29 H Creatinine 0.5 L Glucose 161 H POC Glucose 224 H 228 H Hemoglobin A1c Lactic Acid Calcium 7.8 L Magnesium Ferritin Total Bilirubin AST 89 H ALT 129 H Alkaline Phosphatase Lactate Dehydrogenase Total Creatine Kinase C-Reactive Protein Total Protein 5.8 L Albumin 2.5 L Triglycerides Arterial Blood Glucose Arterial Blood Ionized Calcium Ur Specific [place] Vancomycin Trough Coronavirus (PCR) 11/25/20 11/25/20 11/26/20 20:45 23:28 04:00 WBC RBC Hgb Hct RDW Plt Count Lymph % (Auto) [place] % (Auto) Lymph # (Auto) [place] # (Auto) Baso # (Auto) Seg Neutrophils % Seg Neuts % (Manual) Lymphocytes % (Manual) Seg Neutrophils # Seg Neutrophils # Man Lymphocytes # (Manual) D-Dimer ABG pH POC ABG pCO2 POC ABG pO2 ABG pO2 ABG HCO3 ABG O2 Saturation ABG Base Excess ABG Hemoglobin ABG Oxyhemoglobin ABG Sodium ABG Potassium ABG Chloride ABG Glucose Oxyhemoglobin Carboxyhemoglobin Sodium Potassium Chloride Carbon Dioxide BUN Creatinine Glucose POC Glucose 177 H 243 H Hemoglobin A1c Lactic Acid Calcium Magnesium Ferritin 778.8 H Total Bilirubin AST ALT Alkaline Phosphatase Lactate Dehydrogenase Total Creatine Kinase C-Reactive Protein Total Protein Albumin Triglycerides Arterial Blood Glucose Arterial Blood Ionized Calcium Ur Specific [place] Vancomycin Trough Coronavirus (PCR) 11/26/20 11/26/20 11/26/20 04:00 05:34 06:04 WBC RBC Hgb Hct RDW Plt Count Lymph % (Auto) [place] % (Auto) Lymph # (Auto) [place] # (Auto) Baso # (Auto) Seg Neutrophils % Seg Neuts % (Manual) Lymphocytes % (Manual) Seg Neutrophils # Seg Neutrophils # Man Lymphocytes # (Manual) D-Dimer 926.11 H ABG pH POC ABG pCO2 POC ABG pO2 ABG pO2 ABG HCO3 ABG O2 Saturation ABG Base Excess ABG Hemoglobin ABG Oxyhemoglobin ABG Sodium ABG Potassium ABG Chloride ABG Glucose Oxyhemoglobin Carboxyhemoglobin Sodium Potassium Chloride Carbon Dioxide 39 H D BUN 30 H Creatinine 0.5 L Glucose 193 H POC Glucose 178 H Hemoglobin A1c Lactic Acid Calcium 7.7 L Magnesium Ferritin Total Bilirubin AST 65 H ALT 132 H Alkaline Phosphatase Lactate Dehydrogenase 288 H Total Creatine Kinase C-Reactive Protein 1.40 H Total Protein 5.7 L Albumin 2.4 L Triglycerides Arterial Blood Glucose Arterial Blood Ionized Calcium Ur Specific [place] Vancomycin Trough Coronavirus (PCR) 11/26/20 11/26/20 11/26/20 06:04 08:47 11:20 WBC 12.4 H RBC Hgb Hct RDW Plt Count Lymph % (Auto) [place] % (Auto) Lymph # (Auto) [place] # (Auto) Baso # (Auto) Seg Neutrophils % Seg Neuts % (Manual) 98.0 H Lymphocytes % (Manual) 1.0 L Seg Neutrophils # Seg Neutrophils # Man 12.2 H Lymphocytes # (Manual) 0.1 L D-Dimer ABG pH POC ABG pCO2 75.2 H POC ABG pO2 61.9 L ABG pO2 ABG HCO3 ABG O2 Saturation ABG Base Excess ABG Hemoglobin ABG Oxyhemoglobin 90.3 L ABG Sodium ABG Potassium ABG Chloride ABG Glucose 243 H Oxyhemoglobin Carboxyhemoglobin Sodium Potassium Chloride Carbon Dioxide BUN Creatinine Glucose POC Glucose 255 H Hemoglobin A1c Lactic Acid Calcium Magnesium Ferritin Total Bilirubin AST ALT Alkaline Phosphatase Lactate Dehydrogenase Total Creatine Kinase C-Reactive Protein Total Protein Albumin Triglycerides Arterial Blood Glucose 243 H Arterial Blood Ionized Calcium Ur Specific [place] Vancomycin Trough Coronavirus (PCR) 11/26/20 11/26/20 11/26/20 16:20 17:15 23:41 WBC RBC Hgb Hct RDW Plt Count Lymph % (Auto) [place] % (Auto) Lymph # (Auto) [place] # (Auto) Baso # (Auto) Seg Neutrophils % Seg Neuts % (Manual) Lymphocytes % (Manual) Seg Neutrophils # Seg Neutrophils # Man Lymphocytes # (Manual) D-Dimer ABG pH POC ABG pCO2 66.6 H POC ABG pO2 78.1 L ABG pO2 ABG HCO3 ABG O2 Saturation ABG Base Excess ABG Hemoglobin ABG Oxyhemoglobin ABG Sodium ABG Potassium ABG Chloride ABG Glucose 244 H Oxyhemoglobin Carboxyhemoglobin Sodium Potassium Chloride Carbon Dioxide BUN Creatinine Glucose POC Glucose 219 H 210 H Hemoglobin A1c Lactic Acid Calcium Magnesium Ferritin Total Bilirubin AST ALT Alkaline Phosphatase Lactate Dehydrogenase Total Creatine Kinase C-Reactive Protein Total Protein Albumin Triglycerides Arterial Blood Glucose 244 H Arterial Blood Ionized Calcium Ur Specific [place] Vancomycin Trough Coronavirus (PCR) 11/27/20 11/27/20 11/27/20 04:46 05:38 06:25 WBC 13.8 H RBC Hgb Hct RDW Plt Count Lymph % (Auto) 2.0 L [place] % (Auto) Lymph # (Auto) 0.3 L [place] # (Auto) Baso # (Auto) Seg Neutrophils % Seg Neuts % (Manual) 96.0 H Lymphocytes % (Manual) Seg Neutrophils # 12.7 H Seg Neutrophils # Man 13.2 H Lymphocytes # (Manual) 0.0 L D-Dimer ABG pH POC ABG pCO2 63.0 H POC ABG pO2 53.6 L ABG pO2 ABG HCO3 ABG O2 Saturation ABG Base Excess ABG Hemoglobin ABG Oxyhemoglobin 87.8 L ABG Sodium 115.4 L ABG Potassium ABG Chloride ABG Glucose 219 H Oxyhemoglobin Carboxyhemoglobin Sodium Potassium Chloride Carbon Dioxide BUN Creatinine Glucose POC Glucose 227 H Hemoglobin A1c Lactic Acid Calcium Magnesium Ferritin Total Bilirubin AST ALT Alkaline Phosphatase Lactate Dehydrogenase Total Creatine Kinase C-Reactive Protein Total Protein Albumin Triglycerides Arterial Blood Glucose 219 H Arterial Blood Ionized Calcium Ur Specific [place] Vancomycin Trough Coronavirus (PCR) 11/27/20 11/27/20 11/27/20 06:25 18:05 23:29 WBC RBC Hgb Hct RDW Plt Count Lymph % (Auto) [place] % (Auto) Lymph # (Auto) [place] # (Auto) Baso # (Auto) Seg Neutrophils % Seg Neuts % (Manual) Lymphocytes % (Manual) Seg Neutrophils # Seg Neutrophils # Man Lymphocytes # (Manual) D-Dimer ABG pH POC ABG pCO2 POC ABG pO2 ABG pO2 ABG HCO3 ABG O2 Saturation ABG Base Excess ABG Hemoglobin ABG Oxyhemoglobin ABG Sodium ABG Potassium ABG Chloride ABG Glucose Oxyhemoglobin Carboxyhemoglobin Sodium Potassium Chloride Carbon Dioxide 38 H BUN 34 H Creatinine 0.4 L Glucose 243 H POC Glucose 329 H 227 H Hemoglobin A1c Lactic Acid Calcium 7.9 L Magnesium Ferritin Total Bilirubin AST 50 H ALT 110 H Alkaline Phosphatase Lactate Dehydrogenase Total Creatine Kinase C-Reactive Protein Total Protein 6.1 L Albumin 2.4 L Triglycerides Arterial Blood Glucose Arterial Blood Ionized Calcium Ur Specific [place] Vancomycin Trough Coronavirus (PCR) 11/28/20 11/28/20 11/28/20 03:45 03:45 03:46 WBC 12.2 H RBC Hgb Hct RDW Plt Count Lymph % (Auto) [place] % (Auto) Lymph # (Auto) [place] # (Auto) Baso # (Auto) Seg Neutrophils % Seg Neuts % (Manual) 93.0 H Lymphocytes % (Manual) 2.0 L Seg Neutrophils # Seg Neutrophils # Man 11.3 H Lymphocytes # (Manual) 0.2 L D-Dimer ABG pH POC ABG pCO2 68.4 H POC ABG pO2 55.4 L ABG pO2 ABG HCO3 ABG O2 Saturation ABG Base Excess ABG Hemoglobin ABG Oxyhemoglobin ABG Sodium ABG Potassium ABG Chloride ABG Glucose 197 H Oxyhemoglobin Carboxyhemoglobin Sodium Potassium Chloride Carbon Dioxide 36 H BUN 37 H Creatinine 0.4 L Glucose 194 H POC Glucose Hemoglobin A1c Lactic Acid Calcium 8.1 L Magnesium Ferritin Total Bilirubin AST ALT 86 H Alkaline Phosphatase Lactate Dehydrogenase Total Creatine Kinase C-Reactive Protein Total Protein 6.0 L Albumin 2.3 L Triglycerides Arterial Blood Glucose 197 H Arterial Blood Ionized Calcium Ur Specific [place] Vancomycin Trough Coronavirus (PCR) 11/28/20 11/28/20 11/29/20 05:24 12:21 04:41 WBC RBC Hgb Hct RDW Plt Count Lymph % (Auto) [place] % (Auto) Lymph # (Auto) [place] # (Auto) Baso # (Auto) Seg Neutrophils % Seg Neuts % (Manual) Lymphocytes % (Manual) Seg Neutrophils # Seg Neutrophils # Man Lymphocytes # (Manual) D-Dimer ABG pH POC ABG pCO2 55.1 H POC ABG pO2 53.6 L ABG pO2 ABG HCO3 ABG O2 Saturation ABG Base Excess ABG Hemoglobin ABG Oxyhemoglobin 87.1 L ABG Sodium 131.2 L ABG Potassium ABG Chloride ABG Glucose 164 H Oxyhemoglobin Carboxyhemoglobin Sodium Potassium Chloride Carbon Dioxide BUN Creatinine Glucose POC Glucose 173 H 126 H Hemoglobin A1c Lactic Acid Calcium Magnesium Ferritin Total Bilirubin AST ALT Alkaline Phosphatase Lactate Dehydrogenase Total Creatine Kinase C-Reactive Protein Total Protein Albumin Triglycerides Arterial Blood Glucose 164 H Arterial Blood Ionized Calcium 4.4 L Ur Specific [place] Vancomycin Trough Coronavirus (PCR) 11/29/20 11/29/20 11/29/20 05:29 12:41 13:28 WBC RBC Hgb Hct RDW Plt Count Lymph % (Auto) [place] % (Auto) Lymph # (Auto) [place] # (Auto) Baso # (Auto) Seg Neutrophils % Seg Neuts % (Manual) Lymphocytes % (Manual) Seg Neutrophils # Seg Neutrophils # Man Lymphocytes # (Manual) D-Dimer ABG pH POC ABG pCO2 POC ABG pO2 ABG pO2 ABG HCO3 ABG O2 Saturation ABG Base Excess ABG Hemoglobin ABG Oxyhemoglobin ABG Sodium ABG Potassium ABG Chloride ABG Glucose Oxyhemoglobin Carboxyhemoglobin Sodium Potassium Chloride Carbon Dioxide 40 H BUN 32 H Creatinine 0.4 L Glucose 274 H POC Glucose 173 H 257 H Hemoglobin A1c Lactic Acid Calcium 7.2 L Magnesium Ferritin Total Bilirubin AST 57 H ALT 102 H Alkaline Phosphatase Lactate Dehydrogenase Total Creatine Kinase C-Reactive Protein Total Protein 5.7 L Albumin 2.1 L Triglycerides Arterial Blood Glucose Arterial Blood Ionized Calcium Ur Specific [place] Vancomycin Trough Coronavirus (PCR) 11/29/20 11/29/20 11/29/20 15:40 17:36 21:26 WBC RBC Hgb Hct RDW Plt Count Lymph % (Auto) [place] % (Auto) Lymph # (Auto) [place] # (Auto) Baso # (Auto) Seg Neutrophils % Seg Neuts % (Manual) Lymphocytes % (Manual) Seg Neutrophils # Seg Neutrophils # Man Lymphocytes # (Manual) D-Dimer ABG pH POC ABG pCO2 POC ABG pO2 ABG pO2 ABG HCO3 ABG O2 Saturation ABG Base Excess ABG Hemoglobin ABG Oxyhemoglobin ABG Sodium ABG Potassium ABG Chloride ABG Glucose Oxyhemoglobin Carboxyhemoglobin Sodium Potassium Chloride Carbon Dioxide BUN Creatinine Glucose POC Glucose 240 H 244 H Hemoglobin A1c Lactic Acid Calcium Magnesium Ferritin Total Bilirubin AST ALT Alkaline Phosphatase Lactate Dehydrogenase Total Creatine Kinase C-Reactive Protein Total Protein Albumin Triglycerides Arterial Blood Glucose Arterial Blood Ionized Calcium Ur Specific [place] Vancomycin Trough 4.0 L Coronavirus (PCR) 11/29/20 11/30/20 11/30/20 23:26 03:30 03:30 WBC RBC Hgb Hct RDW Plt Count Lymph % (Auto) [place] % (Auto) Lymph # (Auto) [place] # (Auto) Baso # (Auto) Seg Neutrophils % Seg Neuts % (Manual) 97.0 H Lymphocytes % (Manual) 1.0 L Seg Neutrophils # Seg Neutrophils # Man 9.9 H Lymphocytes # (Manual) 0.1 L D-Dimer ABG pH POC ABG pCO2 POC ABG pO2 ABG pO2 ABG HCO3 ABG O2 Saturation ABG Base Excess ABG Hemoglobin ABG Oxyhemoglobin ABG Sodium ABG Potassium ABG Chloride ABG Glucose Oxyhemoglobin Carboxyhemoglobin Sodium Potassium Chloride Carbon Dioxide 38 H BUN 34 H Creatinine 0.4 L Glucose 305 H POC Glucose 283 H Hemoglobin A1c Lactic Acid Calcium 7.6 L Magnesium Ferritin Total Bilirubin AST ALT 89 H Alkaline Phosphatase Lactate Dehydrogenase Total Creatine Kinase C-Reactive Protein Total Protein 6.0 L Albumin 2.3 L Triglycerides Arterial Blood Glucose Arterial Blood Ionized Calcium Ur Specific [place] Vancomycin Trough Coronavirus (PCR) 0211/30/20 11/30/20 03:57 05:22 12:05 WBC RBC Hgb Hct RDW Plt Count Lymph % (Auto) [place] % (Auto) Lymph # (Auto) [place] # (Auto) Baso # (Auto) Seg Neutrophils % Seg Neuts % (Manual) Lymphocytes % (Manual) Seg Neutrophils # Seg Neutrophils # Man Lymphocytes # (Manual) D-Dimer ABG pH POC ABG pCO2 60.8 H POC ABG pO2 51.1 L ABG pO2 ABG HCO3 ABG O2 Saturation ABG Base Excess ABG Hemoglobin ABG Oxyhemoglobin 84.6 L ABG Sodium ABG Potassium ABG Chloride ABG Glucose 315 H Oxyhemoglobin Carboxyhemoglobin Sodium Potassium Chloride Carbon Dioxide BUN Creatinine Glucose POC Glucose 295 H 413 H Hemoglobin A1c Lactic Acid Calcium Magnesium Ferritin Total Bilirubin AST ALT Alkaline Phosphatase Lactate Dehydrogenase Total Creatine Kinase C-Reactive Protein Total Protein Albumin Triglycerides Arterial Blood Glucose 315 H Arterial Blood Ionized Calcium 4.5 L Ur Specific [place] Vancomycin Trough Coronavirus (PCR) 11/30/20 11/30/20 12/01/20 17:24 23:25 02:14 WBC RBC Hgb Hct RDW Plt Count Lymph % (Auto) [place] % (Auto) Lymph # (Auto) [place] # (Auto) Baso # (Auto) Seg Neutrophils % Seg Neuts % (Manual) Lymphocytes % (Manual) Seg Neutrophils # Seg Neutrophils # Man Lymphocytes # (Manual) D-Dimer ABG pH 7.278 L POC ABG pCO2 78.1 H POC ABG pO2 79.5 L ABG pO2 ABG HCO3 ABG O2 Saturation ABG Base Excess ABG Hemoglobin 11.6 L ABG Oxyhemoglobin ABG Sodium 134.5 L ABG Potassium 4.6 H ABG Chloride ABG Glucose 286 H Oxyhemoglobin Carboxyhemoglobin Sodium Potassium Chloride Carbon Dioxide BUN Creatinine Glucose POC Glucose 305 H 302 H Hemoglobin A1c Lactic Acid Calcium Magnesium Ferritin Total Bilirubin AST ALT Alkaline Phosphatase Lactate Dehydrogenase Total Creatine Kinase C-Reactive Protein Total Protein Albumin Triglycerides Arterial Blood Glucose 286 H Arterial Blood Ionized Calcium Ur Specific [place] Vancomycin Trough Coronavirus (PCR) 12/01/20 12/01/20 12/01/20 03:35 03:35 05:22 WBC 13.4 H RBC 3.54 L Hgb 10.4 L Hct 31.8 L RDW Plt Count Lymph % (Auto) [place] % (Auto) Lymph # (Auto) [place] # (Auto) Baso # (Auto) Seg Neutrophils % Seg Neuts % (Manual) 95.0 H Lymphocytes % (Manual) 3.0 L Seg Neutrophils # Seg Neutrophils # Man 12.7 H Lymphocytes # (Manual) 0.4 L D-Dimer ABG pH POC ABG pCO2 POC ABG pO2 ABG pO2 ABG HCO3 ABG O2 Saturation ABG Base Excess ABG Hemoglobin ABG Oxyhemoglobin ABG Sodium ABG Potassium ABG Chloride ABG Glucose Oxyhemoglobin Carboxyhemoglobin Sodium Potassium Chloride Carbon Dioxide 35 H BUN 34 H Creatinine 0.5 L Glucose 279 H POC Glucose 259 H Hemoglobin A1c Lactic Acid Calcium 7.6 L Magnesium Ferritin Total Bilirubin AST ALT 63 H Alkaline Phosphatase Lactate Dehydrogenase Total Creatine Kinase C-Reactive Protein Total Protein 4.8 L Albumin 2.1 L Triglycerides Arterial Blood Glucose Arterial Blood Ionized Calcium Ur Specific [place] Vancomycin Trough Coronavirus (PCR) 12/01/20 12/01/20 12/01/20 12:05 17:40 23:46 WBC RBC Hgb Hct RDW Plt Count Lymph % (Auto) [place] % (Auto) Lymph # (Auto) [place] # (Auto) Baso # (Auto) Seg Neutrophils % Seg Neuts % (Manual) Lymphocytes % (Manual) Seg Neutrophils # Seg Neutrophils # Man Lymphocytes # (Manual) D-Dimer ABG pH POC ABG pCO2 POC ABG pO2 ABG pO2 ABG HCO3 ABG O2 Saturation ABG Base Excess ABG Hemoglobin ABG Oxyhemoglobin ABG Sodium ABG Potassium ABG Chloride ABG Glucose Oxyhemoglobin Carboxyhemoglobin Sodium Potassium Chloride Carbon Dioxide BUN Creatinine Glucose POC Glucose 197 H 244 H 284 H Hemoglobin A1c Lactic Acid Calcium Magnesium Ferritin Total Bilirubin AST ALT Alkaline Phosphatase Lactate Dehydrogenase Total Creatine Kinase C-Reactive Protein Total Protein Albumin Triglycerides Arterial Blood Glucose Arterial Blood Ionized Calcium Ur Specific [place] Vancomycin Trough Coronavirus (PCR) 12/02/20 12/02/20 12/02/20 02:14 03:03 04:11 WBC 16.5 H RBC 3.55 L Hgb 10.5 L Hct 31.9 L RDW Plt Count Lymph % (Auto) [place] % (Auto) Lymph # (Auto) [place] # (Auto) Baso # (Auto) Seg Neutrophils % Seg Neuts % (Manual) 90.0 H Lymphocytes % (Manual) 3.0 L Seg Neutrophils # Seg Neutrophils # Man 14.9 H Lymphocytes # (Manual) 0.5 L D-Dimer ABG pH POC ABG pCO2 74.8 H POC ABG pO2 58.9 L ABG pO2 ABG HCO3 ABG O2 Saturation ABG Base Excess ABG Hemoglobin 11.5 L ABG Oxyhemoglobin ABG Sodium ABG Potassium ABG Chloride ABG Glucose 264 H Oxyhemoglobin Carboxyhemoglobin Sodium Potassium Chloride Carbon Dioxide 37 H BUN 30 H Creatinine 0.4 L Glucose 245 H POC Glucose Hemoglobin A1c Lactic Acid Calcium 7.5 L Magnesium Ferritin Total Bilirubin AST ALT Alkaline Phosphatase Lactate Dehydrogenase Total Creatine Kinase C-Reactive Protein Total Protein 5.2 L Albumin 2.2 L Triglycerides Arterial Blood Glucose 264 H Arterial Blood Ionized Calcium 4.5 L Ur Specific [place] Vancomycin Trough Coronavirus (PCR) 12/02/20 12/02/20 12/02/20 05:19 11:46 17:52 WBC RBC Hgb Hct RDW Plt Count Lymph % (Auto) [place] % (Auto) Lymph # (Auto) [place] # (Auto) Baso # (Auto) Seg Neutrophils % Seg Neuts % (Manual) Lymphocytes % (Manual) Seg Neutrophils # Seg Neutrophils # Man Lymphocytes # (Manual) D-Dimer ABG pH POC ABG pCO2 POC ABG pO2 ABG pO2 ABG HCO3 ABG O2 Saturation ABG Base Excess ABG Hemoglobin ABG Oxyhemoglobin ABG Sodium ABG Potassium ABG Chloride ABG Glucose Oxyhemoglobin Carboxyhemoglobin Sodium Potassium Chloride Carbon Dioxide BUN Creatinine Glucose POC Glucose 238 H 236 H 233 H Hemoglobin A1c Lactic Acid Calcium Magnesium Ferritin Total Bilirubin AST ALT Alkaline Phosphatase Lactate Dehydrogenase Total Creatine Kinase C-Reactive Protein Total Protein Albumin Triglycerides Arterial Blood Glucose Arterial Blood Ionized Calcium Ur Specific [place] Vancomycin Trough Coronavirus (PCR) 12/02/20 12/03/20 12/03/20 23:23 03:21 04:35 WBC RBC Hgb Hct RDW Plt Count 112 L Lymph % (Auto) [place] % (Auto) Lymph # (Auto) [place] # (Auto) Baso # (Auto) Seg Neutrophils % Seg Neuts % (Manual) 93.0 H Lymphocytes % (Manual) 4.0 L Seg Neutrophils # Seg Neutrophils # Man 9.1 H Lymphocytes # (Manual) 0.4 L D-Dimer ABG pH 7.299 L POC ABG pCO2 82.1 H POC ABG pO2 62.4 L ABG pO2 ABG HCO3 ABG O2 Saturation ABG Base Excess ABG Hemoglobin 11.5 L ABG Oxyhemoglobin 89.6 L ABG Sodium 134.3 L ABG Potassium ABG Chloride 95.0 L ABG Glucose 203 H Oxyhemoglobin Carboxyhemoglobin Sodium Potassium Chloride Carbon Dioxide BUN Creatinine Glucose POC Glucose 213 H Hemoglobin A1c Lactic Acid Calcium Magnesium Ferritin Total Bilirubin AST ALT Alkaline Phosphatase Lactate Dehydrogenase Total Creatine Kinase C-Reactive Protein Total Protein Albumin Triglycerides Arterial Blood Glucose 203 H Arterial Blood Ionized Calcium 4.5 L Ur Specific [place] Vancomycin Trough Coronavirus (PCR) 12/03/20 12/03/20 12/03/20 04:35 05:42 11:28 WBC RBC Hgb Hct RDW Plt Count Lymph % (Auto) [place] % (Auto) Lymph # (Auto) [place] # (Auto) Baso # (Auto) Seg Neutrophils % Seg Neuts % (Manual) Lymphocytes % (Manual) Seg Neutrophils # Seg Neutrophils # Man Lymphocytes # (Manual) D-Dimer ABG pH POC ABG pCO2 POC ABG pO2 ABG pO2 ABG HCO3 ABG O2 Saturation ABG Base Excess ABG Hemoglobin ABG Oxyhemoglobin ABG Sodium ABG Potassium ABG Chloride ABG Glucose Oxyhemoglobin Carboxyhemoglobin Sodium Potassium Chloride 97.8 L Carbon Dioxide 43 H* BUN 25 H Creatinine 0.3 L Glucose 214 H POC Glucose 193 H 211 H Hemoglobin A1c Lactic Acid Calcium 7.7 L Magnesium Ferritin Total Bilirubin AST ALT 63 H Alkaline Phosphatase 132 H Lactate Dehydrogenase Total Creatine Kinase C-Reactive Protein Total Protein 5.1 L Albumin 2.4 L Triglycerides Arterial Blood Glucose Arterial Blood Ionized Calcium Ur Specific [place] Vancomycin Trough Coronavirus (PCR) 12/03/20 12/03/20 12/04/20 17:45 23:57 00:11 WBC RBC Hgb Hct RDW Plt Count Lymph % (Auto) [place] % (Auto) Lymph # (Auto) [place] # (Auto) Baso # (Auto) Seg Neutrophils % Seg Neuts % (Manual) Lymphocytes % (Manual) Seg Neutrophils # Seg Neutrophils # Man Lymphocytes # (Manual) D-Dimer ABG pH POC ABG pCO2 POC ABG pO2 ABG pO2 ABG HCO3 ABG O2 Saturation ABG Base Excess ABG Hemoglobin ABG Oxyhemoglobin ABG Sodium ABG Potassium ABG Chloride ABG Glucose Oxyhemoglobin Carboxyhemoglobin Sodium Potassium Chloride Carbon Dioxide BUN Creatinine Glucose POC Glucose 231 H 240 H 239 H Hemoglobin A1c Lactic Acid Calcium Magnesium Ferritin Total Bilirubin AST ALT Alkaline Phosphatase Lactate Dehydrogenase Total Creatine Kinase C-Reactive Protein Total Protein Albumin Triglycerides Arterial Blood Glucose Arterial Blood Ionized Calcium Ur Specific [place] Vancomycin Trough Coronavirus (PCR) 12/04/20 12/04/20 12/04/20 04:00 05:20 05:34 WBC RBC Hgb Hct RDW Plt Count Lymph % (Auto) [place] % (Auto) Lymph # (Auto) [place] # (Auto) Baso # (Auto) Seg Neutrophils % Seg Neuts % (Manual) Lymphocytes % (Manual) Seg Neutrophils # Seg Neutrophils # Man Lymphocytes # (Manual) D-Dimer ABG pH POC ABG pCO2 84.4 H POC ABG pO2 68.0 L ABG pO2 ABG HCO3 ABG O2 Saturation ABG Base Excess ABG Hemoglobin 11.6 L ABG Oxyhemoglobin ABG Sodium 130.9 L ABG Potassium ABG Chloride 90.0 L ABG Glucose 244 H Oxyhemoglobin Carboxyhemoglobin Sodium Potassium Chloride Carbon Dioxide BUN Creatinine Glucose POC Glucose 241 H 213 H Hemoglobin A1c Lactic Acid Calcium Magnesium Ferritin Total Bilirubin AST ALT Alkaline Phosphatase Lactate Dehydrogenase Total Creatine Kinase C-Reactive Protein Total Protein Albumin Triglycerides Arterial Blood Glucose 244 H Arterial Blood Ionized Calcium 4.4 L Ur Specific [place] Vancomycin Trough Coronavirus (PCR) 12/04/20 12/04/20 12/04/20 11:36 16:53 23:32 WBC RBC Hgb Hct RDW Plt Count Lymph % (Auto) [place] % (Auto) Lymph # (Auto) [place] # (Auto) Baso # (Auto) Seg Neutrophils % Seg Neuts % (Manual) Lymphocytes % (Manual) Seg Neutrophils # Seg Neutrophils # Man Lymphocytes # (Manual) D-Dimer ABG pH POC ABG pCO2 POC ABG pO2 ABG pO2 ABG HCO3 ABG O2 Saturation ABG Base Excess ABG Hemoglobin ABG Oxyhemoglobin ABG Sodium ABG Potassium ABG Chloride ABG Glucose Oxyhemoglobin Carboxyhemoglobin Sodium Potassium Chloride Carbon Dioxide BUN Creatinine Glucose POC Glucose 196 H 127 H 230 H Hemoglobin A1c Lactic Acid Calcium Magnesium Ferritin Total Bilirubin AST ALT Alkaline Phosphatase Lactate Dehydrogenase Total Creatine Kinase C-Reactive Protein Total Protein Albumin Triglycerides Arterial Blood Glucose Arterial Blood Ionized Calcium Ur Specific [place] Vancomycin Trough Coronavirus (PCR) 12/04/20 12/05/20 12/05/20 Unknown 04:16 05:21 WBC RBC Hgb Hct RDW Plt Count Lymph % (Auto) [place] % (Auto) Lymph # (Auto) [place] # (Auto) Baso # (Auto) Seg Neutrophils % Seg Neuts % (Manual) Lymphocytes % (Manual) Seg Neutrophils # Seg Neutrophils # Man Lymphocytes # (Manual) D-Dimer ABG pH POC ABG pCO2 86.7 H POC ABG pO2 58.0 L ABG pO2 ABG HCO3 ABG O2 Saturation ABG Base Excess ABG Hemoglobin 11.6 L ABG Oxyhemoglobin 89 L ABG Sodium 130.1 L ABG Potassium 4.9 H ABG Chloride 89.0 L ABG Glucose 254 H Oxyhemoglobin Carboxyhemoglobin Sodium 136 L Potassium Chloride 90.0 L Carbon Dioxide 46 H* BUN 24 H Creatinine 0.3 L Glucose 226 H POC Glucose 213 H Hemoglobin A1c Lactic Acid Calcium 7.6 L Magnesium Ferritin Total Bilirubin AST 46 H ALT 78 H Alkaline Phosphatase 172 H Lactate Dehydrogenase Total Creatine Kinase C-Reactive Protein Total Protein 6.0 L Albumin 2.8 L Triglycerides 156 H Arterial Blood Glucose 254 H Arterial Blood Ionized Calcium 4.4 L Ur Specific [place] Vancomycin Trough Coronavirus (PCR) 12/05/20 12/05/20 12/05/20 11:22 17:26 23:38 WBC RBC Hgb Hct RDW Plt Count Lymph % (Auto) [place] % (Auto) Lymph # (Auto) [place] # (Auto) Baso # (Auto) Seg Neutrophils % Seg Neuts % (Manual) Lymphocytes % (Manual) Seg Neutrophils # Seg Neutrophils # Man Lymphocytes # (Manual) D-Dimer ABG pH POC ABG pCO2 POC ABG pO2 ABG pO2 ABG HCO3 ABG O2 Saturation ABG Base Excess ABG Hemoglobin ABG Oxyhemoglobin ABG Sodium ABG Potassium ABG Chloride ABG Glucose Oxyhemoglobin Carboxyhemoglobin Sodium Potassium Chloride Carbon Dioxide BUN Creatinine Glucose POC Glucose 212 H 157 H 204 H Hemoglobin A1c Lactic Acid Calcium Magnesium Ferritin Total Bilirubin AST ALT Alkaline Phosphatase Lactate Dehydrogenase Total Creatine Kinase C-Reactive Protein Total Protein Albumin Triglycerides Arterial Blood Glucose Arterial Blood Ionized Calcium Ur Specific [place] Vancomycin Trough Coronavirus (PCR) 12/06/20 12/06/20 12/06/20 04:31 04:31 05:12 WBC 17.0 H RBC 3.63 L Hgb 10.8 L D Hct 32.6 L D RDW Plt Count Lymph % (Auto) [place] % (Auto) Lymph # (Auto) [place] # (Auto) Baso # (Auto) Seg Neutrophils % Seg Neuts % (Manual) Lymphocytes % (Manual) Seg Neutrophils # Seg Neutrophils # Man Lymphocytes # (Manual) D-Dimer ABG pH POC ABG pCO2 85.9 H POC ABG pO2 57.6 L ABG pO2 ABG HCO3 ABG O2 Saturation ABG Base Excess ABG Hemoglobin ABG Oxyhemoglobin ABG Sodium 131.2 L ABG Potassium 4.8 H ABG Chloride 86.0 L ABG Glucose 200 H Oxyhemoglobin Carboxyhemoglobin Sodium 134 L Potassium 5.1 H Chloride 88.4 L Carbon Dioxide 47 H* BUN 23 H Creatinine 0.3 L Glucose 206 H POC Glucose Hemoglobin A1c Lactic Acid Calcium 8.3 L Magnesium Ferritin Total Bilirubin AST 48 H ALT 91 H Alkaline Phosphatase 140 H Lactate Dehydrogenase Total Creatine Kinase C-Reactive Protein Total Protein 5.7 L Albumin 2.6 L Triglycerides Arterial Blood Glucose 200 H Arterial Blood Ionized Calcium 4.4 L Ur Specific [place] Vancomycin Trough Coronavirus (PCR) 12/06/20 12/06/20 12/06/20 05:24 12:18 16:45 WBC RBC Hgb Hct RDW Plt Count Lymph % (Auto) [place] % (Auto) Lymph # (Auto) [place] # (Auto) Baso # (Auto) Seg Neutrophils % Seg Neuts % (Manual) Lymphocytes % (Manual) Seg Neutrophils # Seg Neutrophils # Man Lymphocytes # (Manual) D-Dimer ABG pH POC ABG pCO2 POC ABG pO2 ABG pO2 ABG HCO3 ABG O2 Saturation ABG Base Excess ABG Hemoglobin ABG Oxyhemoglobin ABG Sodium ABG Potassium ABG Chloride ABG Glucose Oxyhemoglobin Carboxyhemoglobin Sodium Potassium Chloride Carbon Dioxide BUN Creatinine Glucose POC Glucose 186 H 187 H 150 H Hemoglobin A1c Lactic Acid Calcium Magnesium Ferritin Total Bilirubin AST ALT Alkaline Phosphatase Lactate Dehydrogenase Total Creatine Kinase C-Reactive Protein Total Protein Albumin Triglycerides Arterial Blood Glucose Arterial Blood Ionized Calcium Ur Specific [place] Vancomycin Trough Coronavirus (PCR) 12/06/20 12/07/20 12/07/20 23:43 05:20 05:21 WBC RBC Hgb Hct RDW Plt Count Lymph % (Auto) [place] % (Auto) Lymph # (Auto) [place] # (Auto) Baso # (Auto) Seg Neutrophils % Seg Neuts % (Manual) Lymphocytes % (Manual) Seg Neutrophils # Seg Neutrophils # Man Lymphocytes # (Manual) D-Dimer ABG pH POC ABG pCO2 POC ABG pO2 ABG pO2 48.4 L ABG HCO3 50.8 H ABG O2 Saturation 86.2 L ABG Base Excess 22.4 H ABG Hemoglobin 11.0 L ABG Oxyhemoglobin ABG Sodium ABG Potassium ABG Chloride ABG Glucose Oxyhemoglobin 84.0 L Carboxyhemoglobin Sodium Potassium Chloride Carbon Dioxide BUN Creatinine Glucose POC Glucose 153 H 107 H Hemoglobin A1c Lactic Acid Calcium Magnesium Ferritin Total Bilirubin AST ALT Alkaline Phosphatase Lactate Dehydrogenase Total Creatine Kinase C-Reactive Protein Total Protein Albumin Triglycerides Arterial Blood Glucose Arterial Blood Ionized Calcium Ur Specific [place] Vancomycin Trough Coronavirus (PCR) 12/07/20 12/07/20 12/07/20 13:20 14:28 17:35 WBC RBC Hgb Hct RDW Plt Count Lymph % (Auto) [place] % (Auto) Lymph # (Auto) [place] # (Auto) Baso # (Auto) Seg Neutrophils % Seg Neuts % (Manual) Lymphocytes % (Manual) Seg Neutrophils # Seg Neutrophils # Man Lymphocytes # (Manual) D-Dimer ABG pH POC ABG pCO2 74.1 H POC ABG pO2 68.5 L ABG pO2 ABG HCO3 ABG O2 Saturation ABG Base Excess ABG Hemoglobin 10.7 L ABG Oxyhemoglobin 91.9 L ABG Sodium 132.2 L ABG Potassium 4.7 H ABG Chloride 88.0 L ABG Glucose 138 H Oxyhemoglobin Carboxyhemoglobin Sodium 134 L Potassium Chloride 87.4 L Carbon Dioxide 49 H* BUN Creatinine 0.2 L Glucose 132 H POC Glucose 176 H Hemoglobin A1c Lactic Acid Calcium 7.7 L Magnesium Ferritin Total Bilirubin AST ALT Alkaline Phosphatase Lactate Dehydrogenase Total Creatine Kinase C-Reactive Protein Total Protein Albumin Triglycerides Arterial Blood Glucose 138 H Arterial Blood Ionized Calcium 4.0 L Ur Specific [place] Vancomycin Trough Coronavirus (PCR) 12/07/20 12/08/20 12/08/20 23:44 04:12 05:29 WBC RBC Hgb Hct RDW Plt Count Lymph % (Auto) [place] % (Auto) Lymph # (Auto) [place] # (Auto) Baso # (Auto) Seg Neutrophils % Seg Neuts % (Manual) Lymphocytes % (Manual) Seg Neutrophils # Seg Neutrophils # Man Lymphocytes # (Manual) D-Dimer ABG pH POC ABG pCO2 POC ABG pO2 ABG pO2 69.7 L ABG HCO3 50.1 H ABG O2 Saturation ABG Base Excess 21.6 H ABG Hemoglobin 10.9 L ABG Oxyhemoglobin ABG Sodium ABG Potassium ABG Chloride ABG Glucose Oxyhemoglobin 93.2 L Carboxyhemoglobin Sodium Potassium Chloride Carbon Dioxide BUN Creatinine Glucose POC Glucose 143 H 143 H Hemoglobin A1c Lactic Acid Calcium Magnesium Ferritin Total Bilirubin AST ALT Alkaline Phosphatase Lactate Dehydrogenase Total Creatine Kinase C-Reactive Protein Total Protein Albumin Triglycerides Arterial Blood Glucose Arterial Blood Ionized Calcium Ur Specific [place] Vancomycin Trough Coronavirus (PCR) 12/08/20 12/08/20 12/09/20 06:10 06:10 04:24 WBC 12.0 H RBC 3.18 L Hgb 9.5 L Hct 28.9 L RDW Plt Count Lymph % (Auto) [place] % (Auto) Lymph # (Auto) [place] # (Auto) Baso # (Auto) Seg Neutrophils % Seg Neuts % (Manual) 95.0 H Lymphocytes % (Manual) 3.0 L Seg Neutrophils # Seg Neutrophils # Man 11.4 H Lymphocytes # (Manual) 0.4 L D-Dimer ABG pH POC ABG pCO2 76.2 H POC ABG pO2 52.8 L ABG pO2 ABG HCO3 ABG O2 Saturation ABG Base Excess ABG Hemoglobin 11.7 L ABG Oxyhemoglobin ABG Sodium 132.0 L ABG Potassium ABG Chloride 87.0 L ABG Glucose 118 H Oxyhemoglobin Carboxyhemoglobin Sodium 133 L Potassium Chloride 86.3 L Carbon Dioxide 53 H* BUN Creatinine 0.2 L Glucose 156 H POC Glucose Hemoglobin A1c Lactic Acid Calcium 7.6 L Magnesium Ferritin Total Bilirubin AST ALT Alkaline Phosphatase Lactate Dehydrogenase Total Creatine Kinase C-Reactive Protein Total Protein Albumin Triglycerides Arterial Blood Glucose 118 H Arterial Blood Ionized Calcium 4.2 L Ur Specific [place] Vancomycin Trough Coronavirus (PCR) 12/09/20 12/09/20 12/09/20 05:44 06:40 06:40 WBC 13.5 H RBC 3.28 L Hgb 9.7 L Hct 29.9 L RDW Plt Count Lymph % (Auto) [place] % (Auto) Lymph # (Auto) [place] # (Auto) Baso # (Auto) Seg Neutrophils % Seg Neuts % (Manual) Lymphocytes % (Manual) Seg Neutrophils # Seg Neutrophils # Man Lymphocytes # (Manual) D-Dimer ABG pH POC ABG pCO2 POC ABG pO2 ABG pO2 ABG HCO3 ABG O2 Saturation ABG Base Excess ABG Hemoglobin ABG Oxyhemoglobin ABG Sodium ABG Potassium ABG Chloride ABG Glucose Oxyhemoglobin Carboxyhemoglobin Sodium 135 L Potassium Chloride 89.5 L Carbon Dioxide 52 H* BUN Creatinine 0.3 L Glucose 114 H POC Glucose 117 H Hemoglobin A1c Lactic Acid Calcium 7.6 L Magnesium Ferritin Total Bilirubin AST ALT Alkaline Phosphatase Lactate Dehydrogenase Total Creatine Kinase C-Reactive Protein Total Protein Albumin Triglycerides Arterial Blood Glucose Arterial Blood Ionized Calcium Ur Specific [place] Vancomycin Trough Coronavirus (PCR) 12/09/20 12/09/20 12/10/20 16:42 21:11 04:28 WBC RBC Hgb Hct RDW Plt Count Lymph % (Auto) [place] % (Auto) Lymph # (Auto) [place] # (Auto) Baso # (Auto) Seg Neutrophils % Seg Neuts % (Manual) Lymphocytes % (Manual) Seg Neutrophils # Seg Neutrophils # Man Lymphocytes # (Manual) D-Dimer ABG pH POC ABG pCO2 72.5 H 69.4 H 76.9 H POC ABG pO2 50.4 L 80.6 L 60.2 L ABG pO2 ABG HCO3 ABG O2 Saturation ABG Base Excess ABG Hemoglobin 10.4 L 10.7 L 10 L ABG Oxyhemoglobin 84.3 L 89.7 L ABG Sodium 133.7 L 133.7 L 133.8 L ABG Potassium ABG Chloride 90.0 L 91.0 L 91.0 L ABG Glucose 116 H 96 H 57 L Oxyhemoglobin Carboxyhemoglobin 0.4 L Sodium Potassium Chloride Carbon Dioxide BUN Creatinine Glucose POC Glucose Hemoglobin A1c Lactic Acid Calcium Magnesium Ferritin Total Bilirubin AST ALT Alkaline Phosphatase Lactate Dehydrogenase Total Creatine Kinase C-Reactive Protein Total Protein Albumin Triglycerides Arterial Blood Glucose 116 H 96 H 57 L Arterial Blood Ionized Calcium 4.2 L 4.3 L 4.2 L Ur Specific [place] Vancomycin Trough Coronavirus (PCR) 12/10/20 12/10/20 12/10/20 05:09 05:41 11:50 WBC RBC Hgb Hct RDW Plt Count Lymph % (Auto) [place] % (Auto) Lymph # (Auto) [place] # (Auto) Baso # (Auto) Seg Neutrophils % Seg Neuts % (Manual) Lymphocytes % (Manual) Seg Neutrophils # Seg Neutrophils # Man Lymphocytes # (Manual) D-Dimer ABG pH POC ABG pCO2 POC ABG pO2 ABG pO2 ABG HCO3 ABG O2 Saturation ABG Base Excess ABG Hemoglobin ABG Oxyhemoglobin ABG Sodium ABG Potassium ABG Chloride ABG Glucose Oxyhemoglobin Carboxyhemoglobin Sodium Potassium Chloride Carbon Dioxide BUN Creatinine Glucose POC Glucose 41 L 138 H 106 H Hemoglobin A1c Lactic Acid Calcium Magnesium Ferritin Total Bilirubin AST ALT Alkaline Phosphatase Lactate Dehydrogenase Total Creatine Kinase C-Reactive Protein Total Protein Albumin Triglycerides Arterial Blood Glucose Arterial Blood Ionized Calcium Ur Specific [place] Vancomycin Trough Coronavirus (PCR) 12/10/20 12/10/20 12/11/20 17:34 23:25 04:06 WBC RBC Hgb Hct RDW Plt Count Lymph % (Auto) [place] % (Auto) Lymph # (Auto) [place] # (Auto) Baso # (Auto) Seg Neutrophils % Seg Neuts % (Manual) Lymphocytes % (Manual) Seg Neutrophils # Seg Neutrophils # Man Lymphocytes # (Manual) D-Dimer ABG pH POC ABG pCO2 71.0 H POC ABG pO2 56.8 L ABG pO2 ABG HCO3 ABG O2 Saturation ABG Base Excess ABG Hemoglobin 10.1 L ABG Oxyhemoglobin 88.5 L ABG Sodium 132.3 L ABG Potassium ABG Chloride 91.0 L ABG Glucose 168 H Oxyhemoglobin Carboxyhemoglobin Sodium Potassium Chloride Carbon Dioxide BUN Creatinine Glucose POC Glucose 121 H 167 H Hemoglobin A1c Lactic Acid Calcium Magnesium Ferritin Total Bilirubin AST ALT Alkaline Phosphatase Lactate Dehydrogenase Total Creatine Kinase C-Reactive Protein Total Protein Albumin Triglycerides Arterial Blood Glucose 168 H Arterial Blood Ionized Calcium 4.1 L Ur Specific [place] Vancomycin Trough Coronavirus (PCR) 12/11/20 12/11/20 12/11/20 05:21 11:44 15:40 WBC RBC Hgb Hct RDW Plt Count Lymph % (Auto) [place] % (Auto) Lymph # (Auto) [place] # (Auto) Baso # (Auto) Seg Neutrophils % Seg Neuts % (Manual) Lymphocytes % (Manual) Seg Neutrophils # Seg Neutrophils # Man Lymphocytes # (Manual) D-Dimer ABG pH 7.454 H POC ABG pCO2 58.6 H POC ABG pO2 50.7 L ABG pO2 ABG HCO3 ABG O2 Saturation ABG Base Excess ABG Hemoglobin 10.1 L ABG Oxyhemoglobin 86.2 L ABG Sodium 131.2 L ABG Potassium ABG Chloride 92.0 L ABG Glucose 197 H Oxyhemoglobin Carboxyhemoglobin Sodium Potassium Chloride Carbon Dioxide BUN Creatinine Glucose POC Glucose 149 H 202 H Hemoglobin A1c Lactic Acid Calcium Magnesium Ferritin Total Bilirubin AST ALT Alkaline Phosphatase Lactate Dehydrogenase Total Creatine Kinase C-Reactive Protein Total Protein Albumin Triglycerides Arterial Blood Glucose 197 H Arterial Blood Ionized Calcium 4.2 L Ur Specific [place] Vancomycin Trough Coronavirus (PCR) 12/11/20 12/11/20 12/12/20 17:09 23:16 05:09 WBC RBC Hgb Hct RDW Plt Count Lymph % (Auto) [place] % (Auto) Lymph # (Auto) [place] # (Auto) Baso # (Auto) Seg Neutrophils % Seg Neuts % (Manual) Lymphocytes % (Manual) Seg Neutrophils # Seg Neutrophils # Man Lymphocytes # (Manual) D-Dimer ABG pH POC ABG pCO2 63.1 H POC ABG pO2 62.6 L ABG pO2 ABG HCO3 ABG O2 Saturation ABG Base Excess ABG Hemoglobin 10.3 L ABG Oxyhemoglobin ABG Sodium 130.3 L ABG Potassium 4.6 H ABG Chloride 92.0 L ABG Glucose 215 H Oxyhemoglobin Carboxyhemoglobin Sodium Potassium Chloride Carbon Dioxide BUN Creatinine Glucose POC Glucose 181 H 192 H Hemoglobin A1c Lactic Acid Calcium Magnesium Ferritin Total Bilirubin AST ALT Alkaline Phosphatase Lactate Dehydrogenase Total Creatine Kinase C-Reactive Protein Total Protein Albumin Triglycerides Arterial Blood Glucose 215 H Arterial Blood Ionized Calcium 4.4 L Ur Specific [place] Vancomycin Trough Coronavirus (PCR) 12/12/20 12/12/20 12/12/20 05:16 05:47 11:41 WBC RBC Hgb Hct RDW Plt Count Lymph % (Auto) [place] % (Auto) Lymph # (Auto) [place] # (Auto) Baso # (Auto) Seg Neutrophils % Seg Neuts % (Manual) Lymphocytes % (Manual) Seg Neutrophils # Seg Neutrophils # Man Lymphocytes # (Manual) D-Dimer ABG pH POC ABG pCO2 POC ABG pO2 ABG pO2 ABG HCO3 ABG O2 Saturation ABG Base Excess ABG Hemoglobin ABG Oxyhemoglobin ABG Sodium ABG Potassium ABG Chloride ABG Glucose Oxyhemoglobin Carboxyhemoglobin Sodium Potassium Chloride Carbon Dioxide BUN Creatinine Glucose POC Glucose 208 H 218 H Hemoglobin A1c Lactic Acid Calcium Magnesium Ferritin Total Bilirubin AST ALT Alkaline Phosphatase Lactate Dehydrogenase Total Creatine Kinase C-Reactive Protein Total Protein Albumin Triglycerides 150 H Arterial Blood Glucose Arterial Blood Ionized Calcium Ur Specific [place] Vancomycin Trough Coronavirus (PCR) 12/12/20 12/12/20 12/13/20 17:05 23:18 03:36 WBC RBC Hgb Hct RDW Plt Count Lymph % (Auto) [place] % (Auto) Lymph # (Auto) [place] # (Auto) Baso # (Auto) Seg Neutrophils % Seg Neuts % (Manual) Lymphocytes % (Manual) Seg Neutrophils # Seg Neutrophils # Man Lymphocytes # (Manual) D-Dimer ABG pH POC ABG pCO2 61.5 H POC ABG pO2 77.6 L ABG pO2 ABG HCO3 ABG O2 Saturation ABG Base Excess ABG Hemoglobin 10.2 L ABG Oxyhemoglobin ABG Sodium 127.5 L ABG Potassium ABG Chloride 91.0 L ABG Glucose 232 H Oxyhemoglobin Carboxyhemoglobin Sodium Potassium Chloride Carbon Dioxide BUN Creatinine Glucose POC Glucose 187 H 176 H Hemoglobin A1c Lactic Acid Calcium Magnesium Ferritin Total Bilirubin AST ALT Alkaline Phosphatase Lactate Dehydrogenase Total Creatine Kinase C-Reactive Protein Total Protein Albumin Triglycerides Arterial Blood Glucose 232 H Arterial Blood Ionized Calcium 4.2 L Ur Specific [place] Vancomycin Trough Coronavirus (PCR) 12/13/20 12/13/20 12/13/20 05:13 10:00 11:30 WBC RBC 3.50 L Hgb 10.5 L Hct 31.9 L RDW Plt Count Lymph % (Auto) [place] % (Auto) Lymph # (Auto) [place] # (Auto) Baso # (Auto) Seg Neutrophils % Seg Neuts % (Manual) 96.0 H Lymphocytes % (Manual) Seg Neutrophils # Seg Neutrophils # Man 9.2 H Lymphocytes # (Manual) 0.0 L D-Dimer ABG pH POC ABG pCO2 POC ABG pO2 ABG pO2 ABG HCO3 ABG O2 Saturation ABG Base Excess ABG Hemoglobin ABG Oxyhemoglobin ABG Sodium ABG Potassium ABG Chloride ABG Glucose Oxyhemoglobin Carboxyhemoglobin Sodium Potassium Chloride Carbon Dioxide BUN Creatinine Glucose POC Glucose 204 H Hemoglobin A1c Lactic Acid Calcium Magnesium Ferritin Total Bilirubin AST ALT Alkaline Phosphatase Lactate Dehydrogenase Total Creatine Kinase C-Reactive Protein Total Protein Albumin Triglycerides Arterial Blood Glucose Arterial Blood Ionized Calcium Ur Specific [place] Vancomycin Trough Coronavirus (PCR) Positive A 12/13/20 12/13/20 12/13/20 11:30 12:01 18:04 WBC RBC Hgb Hct RDW Plt Count Lymph % (Auto) [place] % (Auto) Lymph # (Auto) [place] # (Auto) Baso # (Auto) Seg Neutrophils % Seg Neuts % (Manual) Lymphocytes % (Manual) Seg Neutrophils # Seg Neutrophils # Man Lymphocytes # (Manual) D-Dimer ABG pH POC ABG pCO2 POC ABG pO2 ABG pO2 ABG HCO3 ABG O2 Saturation ABG Base Excess ABG Hemoglobin ABG Oxyhemoglobin ABG Sodium ABG Potassium ABG Chloride ABG Glucose Oxyhemoglobin Carboxyhemoglobin Sodium 132 L Potassium Chloride 90.1 L Carbon Dioxide 41 H* D BUN Creatinine 0.2 L Glucose 249 H POC Glucose 224 H 172 H Hemoglobin A1c Lactic Acid Calcium 7.4 L Magnesium Ferritin Total Bilirubin AST ALT 61 H Alkaline Phosphatase Lactate Dehydrogenase Total Creatine Kinase C-Reactive Protein Total Protein 5.7 L Albumin 2.3 L Triglycerides Arterial Blood Glucose Arterial Blood Ionized Calcium Ur Specific [place] Vancomycin Trough Coronavirus (PCR) 12/13/20 12/14/20 12/14/20 23:37 04:05 04:35 WBC RBC 3.37 L Hgb 10.1 L Hct 30.7 L RDW 15.4 H Plt Count Lymph % (Auto) [place] % (Auto) Lymph # (Auto) [place] # (Auto) Baso # (Auto) Seg Neutrophils % Seg Neuts % (Manual) 93.0 H Lymphocytes % (Manual) 3.0 L Seg Neutrophils # Seg Neutrophils # Man 7.8 H Lymphocytes # (Manual) 0.3 L D-Dimer ABG pH POC ABG pCO2 72.2 H POC ABG pO2 61.5 L ABG pO2 ABG HCO3 ABG O2 Saturation ABG Base Excess ABG Hemoglobin ABG Oxyhemoglobin 89.9 L ABG Sodium 131.4 L ABG Potassium ABG Chloride 91.0 L ABG Glucose 205 H Oxyhemoglobin Carboxyhemoglobin Sodium Potassium Chloride Carbon Dioxide BUN Creatinine Glucose POC Glucose 200 H Hemoglobin A1c Lactic Acid Calcium Magnesium Ferritin Total Bilirubin AST ALT Alkaline Phosphatase Lactate Dehydrogenase Total Creatine Kinase C-Reactive Protein Total Protein Albumin Triglycerides Arterial Blood Glucose 205 H Arterial Blood Ionized Calcium 4.3 L Ur Specific [place] Vancomycin Trough Coronavirus (PCR) 12/14/20 12/14/20 12/14/20 04:35 05:12 11:31 WBC RBC Hgb Hct RDW Plt Count Lymph % (Auto) [place] % (Auto) Lymph # (Auto) [place] # (Auto) Baso # (Auto) Seg Neutrophils % Seg Neuts % (Manual) Lymphocytes % (Manual) Seg Neutrophils # Seg Neutrophils # Man Lymphocytes # (Manual) D-Dimer ABG pH POC ABG pCO2 POC ABG pO2 ABG pO2 ABG HCO3 ABG O2 Saturation ABG Base Excess ABG Hemoglobin ABG Oxyhemoglobin ABG Sodium ABG Potassium ABG Chloride ABG Glucose Oxyhemoglobin Carboxyhemoglobin Sodium 135 L Potassium Chloride 92.5 L Carbon Dioxide 38 H BUN Creatinine 0.2 L Glucose 184 H POC Glucose 176 H 212 H Hemoglobin A1c Lactic Acid Calcium 7.7 L Magnesium Ferritin Total Bilirubin AST ALT Alkaline Phosphatase Lactate Dehydrogenase Total Creatine Kinase C-Reactive Protein Total Protein Albumin Triglycerides Arterial Blood Glucose Arterial Blood Ionized Calcium Ur Specific [place] Vancomycin Trough Coronavirus (PCR) 12/14/20 12/14/20 12/15/20 17:30 23:30 03:19 WBC RBC Hgb Hct RDW Plt Count Lymph % (Auto) [place] % (Auto) Lymph # (Auto) [place] # (Auto) Baso # (Auto) Seg Neutrophils % Seg Neuts % (Manual) Lymphocytes % (Manual) Seg Neutrophils # Seg Neutrophils # Man Lymphocytes # (Manual) D-Dimer ABG pH POC ABG pCO2 62.0 H POC ABG pO2 66.0 L ABG pO2 ABG HCO3 ABG O2 Saturation ABG Base Excess ABG Hemoglobin 10.3 L ABG Oxyhemoglobin ABG Sodium 130.5 L ABG Potassium ABG Chloride 91.0 L ABG Glucose 166 H Oxyhemoglobin Carboxyhemoglobin Sodium Potassium Chloride Carbon Dioxide BUN Creatinine Glucose POC Glucose 222 H 176 H Hemoglobin A1c Lactic Acid Calcium Magnesium Ferritin Total Bilirubin AST ALT Alkaline Phosphatase Lactate Dehydrogenase Total Creatine Kinase C-Reactive Protein Total Protein Albumin Triglycerides Arterial Blood Glucose 166 H Arterial Blood Ionized Calcium 4.4 L Ur Specific [place] Vancomycin Trough Coronavirus (PCR) 12/15/20 12/15/20 12/15/20 05:24 11:39 17:30 WBC RBC Hgb Hct RDW Plt Count Lymph % (Auto) [place] % (Auto) Lymph # (Auto) [place] # (Auto) Baso # (Auto) Seg Neutrophils % Seg Neuts % (Manual) Lymphocytes % (Manual) Seg Neutrophils # Seg Neutrophils # Man Lymphocytes # (Manual) D-Dimer ABG pH POC ABG pCO2 POC ABG pO2 ABG pO2 ABG HCO3 ABG O2 Saturation ABG Base Excess ABG Hemoglobin ABG Oxyhemoglobin ABG Sodium ABG Potassium ABG Chloride ABG Glucose Oxyhemoglobin Carboxyhemoglobin Sodium Potassium Chloride Carbon Dioxide BUN Creatinine Glucose POC Glucose 160 H 140 H 246 H Hemoglobin A1c Lactic Acid Calcium Magnesium Ferritin Total Bilirubin AST ALT Alkaline Phosphatase Lactate Dehydrogenase Total Creatine Kinase C-Reactive Protein Total Protein Albumin Triglycerides Arterial Blood Glucose Arterial Blood Ionized Calcium Ur Specific [place] Vancomycin Trough Coronavirus (PCR) 12/15/20 12/16/20 12/16/20 23:42 03:54 04:46 WBC RBC 3.48 L Hgb 10.6 L Hct 31.5 L RDW 15.8 H Plt Count Lymph % (Auto) [place] % (Auto) Lymph # (Auto) [place] # (Auto) Baso # (Auto) Seg Neutrophils % Seg Neuts % (Manual) Lymphocytes % (Manual) Seg Neutrophils # Seg Neutrophils # Man Lymphocytes # (Manual) D-Dimer ABG pH POC ABG pCO2 63.6 H POC ABG pO2 55.0 L ABG pO2 ABG HCO3 ABG O2 Saturation ABG Base Excess ABG Hemoglobin 11.1 L ABG Oxyhemoglobin 87.3 L ABG Sodium 130.7 L ABG Potassium ABG Chloride 89.0 L ABG Glucose 211 H Oxyhemoglobin Carboxyhemoglobin Sodium Potassium Chloride Carbon Dioxide BUN Creatinine Glucose POC Glucose 139 H Hemoglobin A1c Lactic Acid Calcium Magnesium Ferritin Total Bilirubin AST ALT Alkaline Phosphatase Lactate Dehydrogenase Total Creatine Kinase C-Reactive Protein Total Protein Albumin Triglycerides Arterial Blood Glucose 211 H Arterial Blood Ionized Calcium 4.3 L Ur Specific [place] Vancomycin Trough Coronavirus (PCR) 12/16/20 12/16/20 12/16/20 04:46 05:34 11:40 WBC RBC Hgb Hct RDW Plt Count Lymph % (Auto) [place] % (Auto) Lymph # (Auto) [place] # (Auto) Baso # (Auto) Seg Neutrophils % Seg Neuts % (Manual) Lymphocytes % (Manual) Seg Neutrophils # Seg Neutrophils # Man Lymphocytes # (Manual) D-Dimer ABG pH POC ABG pCO2 POC ABG pO2 ABG pO2 ABG HCO3 ABG O2 Saturation ABG Base Excess ABG Hemoglobin ABG Oxyhemoglobin ABG Sodium ABG Potassium ABG Chloride ABG Glucose Oxyhemoglobin Carboxyhemoglobin Sodium 134 L Potassium Chloride 89.7 L Carbon Dioxide 38 H BUN Creatinine < 0.2 L Glucose 203 H POC Glucose 155 H 239 H Hemoglobin A1c Lactic Acid Calcium 7.5 L Magnesium Ferritin Total Bilirubin AST ALT Alkaline Phosphatase Lactate Dehydrogenase Total Creatine Kinase C-Reactive Protein Total Protein Albumin Triglycerides Arterial Blood Glucose Arterial Blood Ionized Calcium Ur Specific [place] Vancomycin Trough Coronavirus (PCR) 12/16/20 12/16/20 12/17/20 17:42 23:45 03:59 WBC RBC Hgb Hct RDW Plt Count Lymph % (Auto) [place] % (Auto) Lymph # (Auto) [place] # (Auto) Baso # (Auto) Seg Neutrophils % Seg Neuts % (Manual) Lymphocytes % (Manual) Seg Neutrophils # Seg Neutrophils # Man Lymphocytes # (Manual) D-Dimer ABG pH POC ABG pCO2 71.9 H POC ABG pO2 57.5 L ABG pO2 ABG HCO3 ABG O2 Saturation ABG Base Excess ABG Hemoglobin 10.8 L ABG Oxyhemoglobin 87.7 L ABG Sodium 131.5 L ABG Potassium ABG Chloride 90.0 L ABG Glucose 199 H Oxyhemoglobin Carboxyhemoglobin Sodium Potassium Chloride Carbon Dioxide BUN Creatinine Glucose POC Glucose 228 H 187 H Hemoglobin A1c Lactic Acid Calcium Magnesium Ferritin Total Bilirubin AST ALT Alkaline Phosphatase Lactate Dehydrogenase Total Creatine Kinase C-Reactive Protein Total Protein Albumin Triglycerides Arterial Blood Glucose 199 H Arterial Blood Ionized Calcium 4.4 L Ur Specific [place] Vancomycin Trough Coronavirus (PCR) 12/17/20 12/17/20 12/17/20 05:35 11:55 17:25 WBC RBC Hgb Hct RDW Plt Count Lymph % (Auto) [place] % (Auto) Lymph # (Auto) [place] # (Auto) Baso # (Auto) Seg Neutrophils % Seg Neuts % (Manual) Lymphocytes % (Manual) Seg Neutrophils # Seg Neutrophils # Man Lymphocytes # (Manual) D-Dimer ABG pH POC ABG pCO2 POC ABG pO2 ABG pO2 ABG HCO3 ABG O2 Saturation ABG Base Excess ABG Hemoglobin ABG Oxyhemoglobin ABG Sodium ABG Potassium ABG Chloride ABG Glucose Oxyhemoglobin Carboxyhemoglobin Sodium 134 L Potassium Chloride 89.6 L Carbon Dioxide 44 H* BUN Creatinine 0.2 L Glucose 280 H POC Glucose 159 H 181 H Hemoglobin A1c Lactic Acid Calcium 8.0 L Magnesium 1.60 L Ferritin Total Bilirubin AST ALT Alkaline Phosphatase Lactate Dehydrogenase Total Creatine Kinase C-Reactive Protein Total Protein 6.2 L Albumin 2.1 L Triglycerides Arterial Blood Glucose Arterial Blood Ionized Calcium Ur Specific [place] Vancomycin Trough Coronavirus (PCR) 12/17/20 12/17/20 12/18/20 17:25 17:51 00:12 WBC RBC Hgb Hct RDW Plt Count Lymph % (Auto) [place] % (Auto) Lymph # (Auto) [place] # (Auto) Baso # (Auto) Seg Neutrophils % Seg Neuts % (Manual) Lymphocytes % (Manual) Seg Neutrophils # Seg Neutrophils # Man Lymphocytes # (Manual) D-Dimer ABG pH POC ABG pCO2 POC ABG pO2 ABG pO2 ABG HCO3 ABG O2 Saturation ABG Base Excess ABG Hemoglobin ABG Oxyhemoglobin ABG Sodium ABG Potassium ABG Chloride ABG Glucose Oxyhemoglobin Carboxyhemoglobin Sodium Potassium Chloride Carbon Dioxide BUN Creatinine Glucose POC Glucose 260 H 197 H Hemoglobin A1c Lactic Acid Calcium Magnesium Ferritin Total Bilirubin AST ALT Alkaline Phosphatase Lactate Dehydrogenase Total Creatine Kinase 47 L C-Reactive Protein Total Protein Albumin Triglycerides Arterial Blood Glucose Arterial Blood Ionized Calcium Ur Specific [place] Vancomycin Trough Coronavirus (PCR) 12/18/20 12/18/20 12/18/20 03:56 04:32 04:32 WBC RBC 2.88 L Hgb 8.6 L Hct 26.0 L RDW 15.6 H Plt Count Lymph % (Auto) [place] % (Auto) Lymph # (Auto) [place] # (Auto) Baso # (Auto) Seg Neutrophils % Seg Neuts % (Manual) Lymphocytes % (Manual) Seg Neutrophils # Seg Neutrophils # Man Lymphocytes # (Manual) D-Dimer ABG pH POC ABG pCO2 78.0 H POC ABG pO2 52.3 L ABG pO2 ABG HCO3 ABG O2 Saturation ABG Base Excess ABG Hemoglobin 11.7 L ABG Oxyhemoglobin 84.9 L ABG Sodium 131.6 L ABG Potassium ABG Chloride 89.0 L ABG Glucose 191 H Oxyhemoglobin Carboxyhemoglobin Sodium 134 L Potassium Chloride 89.5 L Carbon Dioxide 43 H* BUN Creatinine < 0.2 L Glucose 182 H POC Glucose Hemoglobin A1c Lactic Acid Calcium 8.1 L Magnesium Ferritin Total Bilirubin AST ALT Alkaline Phosphatase Lactate Dehydrogenase Total Creatine Kinase C-Reactive Protein Total Protein Albumin Triglycerides Arterial Blood Glucose 191 H Arterial Blood Ionized Calcium 4.4 L Ur Specific [place] Vancomycin Trough Coronavirus (PCR) 12/18/20 12/18/20 12/18/20 05:19 08:27 11:37 WBC RBC Hgb Hct RDW Plt Count Lymph % (Auto) [place] % (Auto) Lymph # (Auto) [place] # (Auto) Baso # (Auto) Seg Neutrophils % Seg Neuts % (Manual) Lymphocytes % (Manual) Seg Neutrophils # Seg Neutrophils # Man Lymphocytes # (Manual) D-Dimer ABG pH POC ABG pCO2 POC ABG pO2 ABG pO2 ABG HCO3 ABG O2 Saturation ABG Base Excess ABG Hemoglobin ABG Oxyhemoglobin ABG Sodium ABG Potassium ABG Chloride ABG Glucose Oxyhemoglobin Carboxyhemoglobin Sodium 131 L Potassium Chloride 89.0 L Carbon Dioxide 41 H* BUN Creatinine < 0.2 L Glucose 176 H POC Glucose 165 H 174 H Hemoglobin A1c Lactic Acid Calcium 7.5 L Magnesium Ferritin Total Bilirubin AST ALT Alkaline Phosphatase Lactate Dehydrogenase Total Creatine Kinase C-Reactive Protein Total Protein Albumin Triglycerides Arterial Blood Glucose Arterial Blood Ionized Calcium Ur Specific [place] Vancomycin Trough Coronavirus (PCR) 12/18/20 12/18/20 12/19/20 17:26 23:19 03:41 WBC RBC Hgb Hct RDW Plt Count Lymph % (Auto) [place] % (Auto) Lymph # (Auto) [place] # (Auto) Baso # (Auto) Seg Neutrophils % Seg Neuts % (Manual) Lymphocytes % (Manual) Seg Neutrophils # Seg Neutrophils # Man Lymphocytes # (Manual) D-Dimer ABG pH POC ABG pCO2 75.4 H POC ABG pO2 50.7 L ABG pO2 ABG HCO3 ABG O2 Saturation ABG Base Excess ABG Hemoglobin 10.4 L ABG Oxyhemoglobin 84.2 L ABG Sodium 131.1 L ABG Potassium ABG Chloride 89.0 L ABG Glucose 194 H Oxyhemoglobin Carboxyhemoglobin 1.6 H Sodium Potassium Chloride Carbon Dioxide BUN Creatinine Glucose POC Glucose 243 H 212 H Hemoglobin A1c Lactic Acid Calcium Magnesium Ferritin Total Bilirubin AST ALT Alkaline Phosphatase Lactate Dehydrogenase Total Creatine Kinase C-Reactive Protein Total Protein Albumin Triglycerides Arterial Blood Glucose 194 H Arterial Blood Ionized Calcium 4.3 L Ur Specific [place] Vancomycin Trough Coronavirus (PCR) 12/19/20 12/19/20 12/19/20 05:26 11:56 18:17 WBC RBC Hgb Hct RDW Plt Count Lymph % (Auto) [place] % (Auto) Lymph # (Auto) [place] # (Auto) Baso # (Auto) Seg Neutrophils % Seg Neuts % (Manual) Lymphocytes % (Manual) Seg Neutrophils # Seg Neutrophils # Man Lymphocytes # (Manual) D-Dimer ABG pH POC ABG pCO2 POC ABG pO2 ABG pO2 ABG HCO3 ABG O2 Saturation ABG Base Excess ABG Hemoglobin ABG Oxyhemoglobin ABG Sodium ABG Potassium ABG Chloride ABG Glucose Oxyhemoglobin Carboxyhemoglobin Sodium Potassium Chloride Carbon Dioxide BUN Creatinine Glucose POC Glucose 166 H 173 H 212 H Hemoglobin A1c Lactic Acid Calcium Magnesium Ferritin Total Bilirubin AST ALT Alkaline Phosphatase Lactate Dehydrogenase Total Creatine Kinase C-Reactive Protein Total Protein Albumin Triglycerides Arterial Blood Glucose Arterial Blood Ionized Calcium Ur Specific [place] Vancomycin Trough Coronavirus (PCR) 12/19/20 12/19/20 12/20/20 23:39 Unknown 03:26 WBC RBC Hgb Hct RDW Plt Count Lymph % (Auto) [place] % (Auto) Lymph # (Auto) [place] # (Auto) Baso # (Auto) Seg Neutrophils % Seg Neuts % (Manual) Lymphocytes % (Manual) Seg Neutrophils # Seg Neutrophils # Man Lymphocytes # (Manual) D-Dimer ABG pH POC ABG pCO2 74.2 H POC ABG pO2 51.3 L ABG pO2 ABG HCO3 ABG O2 Saturation ABG Base Excess ABG Hemoglobin 10.0 L ABG Oxyhemoglobin ABG Sodium 128.9 L ABG Potassium ABG Chloride 87.0 L ABG Glucose 173 H Oxyhemoglobin Carboxyhemoglobin Sodium 133 L Potassium Chloride 89.9 L Carbon Dioxide 39 H BUN Creatinine 0.2 L Glucose 197 H POC Glucose 133 H Hemoglobin A1c Lactic Acid Calcium 7.6 L Magnesium Ferritin Total Bilirubin AST ALT Alkaline Phosphatase Lactate Dehydrogenase Total Creatine Kinase C-Reactive Protein Total Protein Albumin Triglycerides Arterial Blood Glucose 173 H Arterial Blood Ionized Calcium 4.1 L Ur Specific [place] Vancomycin Trough Coronavirus (PCR) 12/20/20 12/20/20 12/20/20 04:00 04:00 05:05 WBC RBC 3.21 L Hgb 9.6 L Hct 29.2 L RDW 15.8 H Plt Count Lymph % (Auto) [place] % (Auto) Lymph # (Auto) [place] # (Auto) Baso # (Auto) Seg Neutrophils % Seg Neuts % (Manual) Lymphocytes % (Manual) Seg Neutrophils # Seg Neutrophils # Man Lymphocytes # (Manual) D-Dimer ABG pH POC ABG pCO2 POC ABG pO2 ABG pO2 ABG HCO3 ABG O2 Saturation ABG Base Excess ABG Hemoglobin ABG Oxyhemoglobin ABG Sodium ABG Potassium ABG Chloride ABG Glucose Oxyhemoglobin Carboxyhemoglobin Sodium 132 L Potassium Chloride 86.0 L Carbon Dioxide 43 H* BUN Creatinine 0.2 L Glucose 193 H POC Glucose 171 H Hemoglobin A1c Lactic Acid Calcium 7.6 L Magnesium Ferritin Total Bilirubin AST ALT Alkaline Phosphatase Lactate Dehydrogenase Total Creatine Kinase C-Reactive Protein Total Protein Albumin Triglycerides Arterial Blood Glucose Arterial Blood Ionized Calcium Ur Specific [place] Vancomycin Trough Coronavirus (PCR) 12/20/20 12/20/20 11:47 18:18 WBC RBC Hgb Hct RDW Plt Count Lymph % (Auto) [place] % (Auto) Lymph # (Auto) [place] # (Auto) Baso # (Auto) Seg Neutrophils % Seg Neuts % (Manual) Lymphocytes % (Manual) Seg Neutrophils # Seg Neutrophils # Man Lymphocytes # (Manual) D-Dimer ABG pH POC ABG pCO2 POC ABG pO2 ABG pO2 ABG HCO3 ABG O2 Saturation ABG Base Excess ABG Hemoglobin ABG Oxyhemoglobin ABG Sodium ABG Potassium ABG Chloride ABG Glucose Oxyhemoglobin Carboxyhemoglobin Sodium Potassium Chloride Carbon Dioxide BUN Creatinine Glucose POC Glucose 238 H 205 H Hemoglobin A1c Lactic Acid Calcium Magnesium Ferritin Total Bilirubin AST ALT Alkaline Phosphatase Lactate Dehydrogenase Total Creatine Kinase C-Reactive Protein Total Protein Albumin Triglycerides Arterial Blood Glucose Arterial Blood Ionized Calcium Ur Specific [place] Vancomycin Trough Coronavirus (PCR) Chest x-ray: report reviewed, image reviewed
[2020-12-21] MEDS: ACETAMINOPHEN 325 MG TAB PO PRN (00:41)
[2020-12-21] MEDS: INSULIN LISPRO 100 UNIT/ML SUB-Q SCH ×4 (00:48→18:33)
[2020-12-21] MEDS: VANCOMYCIN 1,500 MG in SODIUM CHLORIDE 0.9% 500 ML 500 ML IV SCH ×2 (04:02→17:57)
[2020-12-21] MEDS: fentaNYL DRIP Premix 2,000 MCG/100 ML BAG IV SCH ×3 (05:16→18:35)
[2020-12-21] MEDS: CEFEPIME/NS 2 GM/100 ML 2 GM/100 ML BAG IV SCH ×3 (05:45→22:04)
[2020-12-21] MEDS: NORepinephrine/NS 4 MG-250 ML 4 MG/250 ML BAG IV SCH ×3 (06:31→19:45)
[2020-12-21] MEDS: FAMOTIDINE 20 MG TAB PO SCH ×2 (10:16→22:05)
[2020-12-21] MEDS: SENNOSIDES/DOCUSATE SODIUM 8.6/50 MG TAB PO SCH ×3 (10:16→22:05)
[2020-12-21] MEDS: predniSONE 10 MG TAB PO SCH (10:20)
[2020-12-21 10:41] LABS: Blood Urea Nitrogen 12 mg/dL (9-20); Calcium 7.7 mg/dL (8.4-10.2); Hemolysis Index 2
[2020-12-21 11:03] LABS: BUN/Creatinine Ratio 60
--- NOTE | 2020-12-21 11:26 | Progress Note ---
Assessment and Plan 59 y/o male with acute respiratory failure, abnormal CXR and abnormal lab studies. 12/21/20: Back up to 100%. Peep is the same chest tubes intact. Long discussion on rounds, will restart Diprovan to obtain adequate sedation (RASS of -4). Ok to titrate pressors to achieve adequate sedation if blood pressure is compromised by sedatives. Prognosis remains guarded. Awaiting speciation of other cultures. 12/18/20: Still on 75% and 18 of PEEP. Follow up cultures, Blood pending, urine has not resulted yet. Had another temp at 20:00 last night. CXR looks more like pulmonary edema but not in a position to diurese at this time as he occasionally requires vasopressor support given the amount of sedation needed to achieve a RASS of 4. If he continues to spike, would consider hospital acquired coverage of abx therapy. Prognosis remains guarded. 12/17/20: Back down to 75%. Febrile last night, if and when spikes again today, please obtain blood cultures times 2 and urine. Will go ahead and order repeat CXR now. Prognosis still remains guarded. 12/16/20: Back up to 100%. Once stabilized will attempt to wean back down. ABG in the am and may need to consider repeat ABG later this afternoon pending clinical state. Unable to prone given bilateral chest tubes. Prognosis remains guarded to poor. 12/15/20: Tolerating weaning from yesterday. RT to attempt to wean some more today. Kidney function remains unchanged. Guarded prognosis. 12/14/20: Unable to wean FiO2 today. Continue supportive measures. Great that his kidney function has maintained but given the amount of oxygen he continues to require, his chances of recovery continue to decrease. Family aware and will up date them as needed. Very very guarded prognosis. 12/13/20: WIll start Weaning FiO2 again tomorrow morning of PaO2 remains this good. Continue all other supportive measures. Guarded prognosis. Monitor renal function closely. 12/12/20: Long discussion with brother at door. Patient remains full code which is not unreasonable but family is realistic about outcome being poor. Will continue all supportive measures. IF clinical state worsens, will ask family to come back to see patient. Guarded Prognosis. 12/11/20: Will attempt to wean Diprovan off and increase precedex. Triglycerides were ok. IF we have to support with pressors we will but I have asked nursing to please be detailed in their checkouts as to why they did ce rtain things with the continuous drips. Continue supportive measures. Brother is going to try to come and see him from [place] 12/10/20: No acute events overnight. Patient has had waxing and waning of the amount of oxygen he has required over the last 24-72 hours. I have a bad feeling that he is on the brink of cardiac arrest and this could happen at any moment. I am going to reach out to the brother today to explain to him my concerns. Patient is a full code. Very very guarded prognosis. 12/09/20: Repeat ABG later today. Wean FiO2 for sats >88%. Repeat CXR as well. With BP dropping could be relative adrenal insufficiency, will watch for now, however if pressor requirement increases would consider stress dose steroids and maybe volume replacement. Follow up cultures. Guarded prognosis. 12/08/20: Increase TV to 425. Drop FiO2 to 65% and wean for sats >88%. COntinue chest tubes. Change steroids to 20q12. 12/07/20: CXR is stable, no indication for another chest tube at this time. Will repeat ABG in 1 hour post change to 70% and wean accordingly. Dropping steroids to 20q8. Guarded prognosis. Same weaning parameters apply today as of 12/04/20 12/04/20: Continue to wean steroids to off. Continue to wean FiO2 for sats >88%. Keep PEEP at current level, would not feel comfortable weaning PEEP until FiO2 at 35-40%. Continue chest tubes to suction. PaO2 of >55, pH of >7.2 and sats >88% are acceptable. : Dropped steroids down to 40q8 and will start to wean from there. Continue to slowly wean FiO2 first, keep PEEP at current level. Spoke with Kehinde, please see my event note, who is the biological brother. He had no questions but thanked us for our care. Prognosis remains very very guarded. PaO2 of 55 and pH of >7.2 and sats of >88% are all acceptable. 12/02/20: Wean FiO2 for sats >88% and PaO2 >55. Unable to prone currently secondary to bilateral chest tubes. COntinue high dose steroids. CM To figure out who is the immediate next of kin that can make decisions and then we will discuss the current clinical situation with them. 12/01/20: Continue PEEP and FiO2 elevated to keep sats >88% and PaO2 >55. Small lung volumes and high PEEP. very very guarded prognosis. 11/30/20: Worsening hypoxemia. Chest tubes stable. Likely just worsening disease. Unable to prone now. Increase PEEP to 18 and FiO2 back up to 100. Continue 3 sedatives for RASS of -2. Obtain 12 lead to look at T waves as K was only 4.6 on yesterday. Guarded, guarded prognosis 11/29/20: Second chest tube in on yesterday. CXR is stable. ABG unchanged. Will likely increase PEEP now that chest tubes are in. No further paralytics. Still making good urine. Prognosis remains guarded. Will check chemistry to assess Potassium levels given peaked t's seen on monitor. 11/28/20: Second chest tube today. Once chest tube in, will likely increase PEEP to 18 and repeat gas about 2 hours after this. Continue paralytic today. No proning now that patient will have bilateral chest tubes. VEry guarded prognosis. 11/27/20: Spoke with surgery who have agreed to evaluate and placed chest tube on either right or left side pending CXR reading. Will monitor for 36-48 hours and if no resolution, will need chest tube placed on opposite side as well. Once placed, will likely paralyze again but hold on proning for now. Guarded prognosis. 11/26/20: Paralytics are off. Continue current level of sedation. Will prone for 12 hours today and repeat ABG in the am. Continue lung protective strategy. Guarded prognosis. 11/25/20: Prone again to 16 hours, will prone at 12-12:30. Continue paralytics for 24 more hours. Discussed the idea of permissive hypercapnea again today and as long as pH is above 7.2 no changes should be made to TV and or RR without discussing with physician. Continue to monitor urine output, guarded prognosis. Hold on lasix therapy today. 11/24/20: Prone again today. Will try 48 hours of paralyzing the patient to see if this will help with oxygenation. Will speak with RT's about permissive h ypercapnea and that pH's of 7.2 and greater are ok. Continue high doses steroids. Prognosis is still very very guarded. If not improvement with paralytics, will attempt transfer. 11/23/20: Prone again today for 12 hours. Continue High Dose steroids. Hold on lasix given marginal BP's. Prognosis is very very guarded to poor. Will continue all supportive measures. If not able to wean from 100%, will attempt transfer for ECMO. 11/20/20: WIll change to solumedrol 60q6 today. Hold on lasix today. Given his increasing oxygen requirement, will likely end up intubated. OVerall prognosis is very poor. 11/19/20: lasix 40mg IV x1 today. Will speak with ID but may consider increasing steroids to see if this will help with oxygenation. Continue Remdesivir. Prognosis remains guarded. 11/18/20: Continue bipap, goal is to attempt to prevent prolong intubation for as long as possible. Lasix again today. Steroids and Remdesivir. Guarded Prognosis. 11/17/20: Continue bipap therapy. Monitor mental state. High risk for Intubation. Continue BID anticoagulation. Prone if able. BNP was elevated but not grossly elevated. Will still give lasix with hopes of achieving net negative state. STeroids and remdesivir. Overall prognosis is guarded, extremely guarded. 1. Pulm- Agree with concern for covid. Agree with empiric abx but procal is only mildly elevated. Await cultures. Continue bipap therapy for now but will need to monitor closely. [facility] has ordered CTA, but I spoke with pharmacy and we will empirically treat with BID lovenox therapy. COntinue empiric steroid therapy for COVID until studies back. Not sure that he will be able to prone on bipap therapy. Monitor volume status and run as dry as possible. 2. Renal-normal function but all electrolytes abnormal. HYponatremia and Hypochloremia volume up vs volume down. Sent BNP. Would suggest obtaning echo as well. Not sure what to make of elevated lactate unless that is from increased work of breathing or damage to other tissue unknown. May need to check LFT's and Coags as well. 3. Guarded Prognosis. CCT 31 minutes. Subjective Date of service: 12/21/20 Principal diagnosis: COVID-19 Interval history: No acute events over the weekend. Back up to 100%. Sedation is not adequate. Still on pressors. Objective Vital Signs - 12hr 12/20/20 12/20/20 12/20/20 23:30 23:45 23:49 Temperature Pulse Rate 91 H 90 94 H Respiratory 29 H 30 H 0 L Rate Blood Pressure 127/68 130/65 130/65 O2 Sat by Pulse 96 93 94 Oximetry 12/20/20 12/21/20 12/21/20 23:56 00:00 00:01 Temperature 100.1 F H Pulse Rate 92 H 91 H Respiratory 22 30 H 30 H Rate Blood Pressure 118/63 118/63 O2 Sat by Pulse 92 99 94 Oximetry 12/21/20 12/21/20 12/21/20 00:15 00:30 00:45 Temperature Pulse Rate 90 89 91 H Respiratory 28 H 28 H 30 H Rate Blood Pressure 113/67 121/65 116/67 O2 Sat by Pulse 93 98 98 Oximetry 12/21/20 12/21/20 12/21/20 01:00 01:15 01:30 Temperature Pulse Rate 87 88 88 Respiratory 30 H 20 29 H Rate Blood Pressure 116/62 118/60 110/64 O2 Sat by Pulse 98 98 97 Oximetry 12/21/20 12/21/20 12/21/20 01:45 02:00 02:15 Temperature Pulse Rate 88 90 88 Respiratory 30 H 30 H 29 H Rate Blood Pressure 119/64 108/60 102/60 O2 Sat by Pulse 96 97 98 Oximetry 12/21/20 12/21/20 12/21/20 02:30 02:45 03:00 Temperature Pulse Rate 90 91 H 88 Respiratory 30 H 30 H 30 H Rate Blood Pressure 99/59 94/57 98/57 O2 Sat by Pulse 97 97 97 Oximetry 12/21/20 12/21/20 12/21/20 03:15 03:23 03:27 Temperature Pulse Rate 88 86 Respiratory 30 H 22 Rate Blood Pressure 106/57 106/57 O2 Sat by Pulse 96 92 93 Oximetry 12/21/20 12/21/20 12/21/20 03:30 03:45 03:53 Temperature 99.6 F Pulse Rate 88 88 Respiratory 30 H 30 H Rate Blood Pressure 98/56 98/55 O2 Sat by Pulse 95 93 Oximetry 12/21/20 12/21/20 12/21/20 04:00 04:15 04:30 Temperature Pulse Rate 86 88 89 Respiratory 30 H 30 H 30 H Rate Blood Pressure 103/57 108/60 103/56 O2 Sat by Pulse 95 96 94 Oximetry 12/21/20 12/21/20 12/21/20 04:45 05:00 05:15 Temperature Pulse Rate 89 87 86 Respiratory 30 H 30 H 30 H Rate Blood Pressure 102/57 106/58 93/54 O2 Sat by Pulse 95 95 97 Oximetry 12/21/20 12/21/20 12/21/20 05:30 05:45 06:00 Temperature Pulse Rate 82 83 94 H Respiratory 29 H 30 H 29 H Rate Blood Pressure 101/55 100/56 109/65 O2 Sat by Pulse 92 95 96 Oximetry 12/21/20 12/21/20 12/21/20 06:15 06:30 06:45 Temperature Pulse Rate 90 96 H 101 H Respiratory 30 H 27 H 29 H Rate Blood Pressure 118/62 117/67 127/68 O2 Sat by Pulse 94 95 94 Oximetry 12/21/20 12/21/20 12/21/20 07:00 07:15 07:30 Temperature Pulse Rate 109 H 114 H 113 H Respiratory 29 H 29 H 30 H Rate Blood Pressure 122/67 124/74 135/71 O2 Sat by Pulse 95 95 95 Oximetry 12/21/20 12/21/20 12/21/20 07:45 08:00 08:05 Temperature Pulse Rate 108 H 119 H 112 H Respiratory 30 H 28 H Rate Blood Pressure 118/66 127/70 128/72 O2 Sat by Pulse 96 96 93 Oximetry 12/21/20 12/21/20 08:15 08:30 Temperature Pulse Rate 115 H 113 H Respiratory 27 H 30 H Rate Blood Pressure 128/72 122/63 O2 Sat by Pulse 94 94 Oximetry Constitutional: other (on vent orally intubated) ENT: other (Now intubated) Ascultation: Bilateral: rales, rhonchi, other (coarse BS bilaterally) Percussion: Bilateral: not dull Cardiovascular: regular rate and rhythm (no mrg) Gastrointestinal: normoactive bowel sounds, soft, non-tender, non-distended Integumentary: normal Extremities: no cyanosis, no edema, pink and warm Neurologic: other (sedated) Psychiatric: other (sedated) CBC and BMP: 12/20/20 04:00 12/21/20 09:57 ABG, PT/INR, D-dimer: ABG ABG pH 7.40 (7.320-7.450) 12/21/20 03:30 POC ABG pCO2 73.4 mmHg (32.0-48.0) H 12/21/20 03:30 ABG pCO2 81.3 mm Hg 12/08/20 04:12 POC ABG pO2 63.0 mmHg (83-108) L 12/21/20 03:30 ABG pO2 69.7 mm Hg (80.0-90.0) L 12/08/20 04:12 POC ABG HCO3 44.4 12/21/20 03:30 ABG O2 Saturation 95.4 % (95.0-99.0) 12/08/20 04:12 PT/INR, D-dimer D-Dimer 926.11 ng/mlDDU (0-234) H 11/26/20 06:04 Abnormal lab findings: Abnormal Labs 11/15/20 11/15/20 11/15/20 10:39 10:39 10:39 WBC 14.3 H RBC 5.17 H Hgb Hct RDW Plt Count Lymph % (Auto) 7.8 L [place] % (Auto) 7.6 H Lymph # (Auto) 1.1 L [place] # (Auto) 1.1 H Baso # (Auto) Seg Neutrophils % 83.3 H Seg Neuts % (Manual) Lymphocytes % (Manual) Seg Neutrophils # 11.9 H Seg Neutrophils # Man Lymphocytes # (Manual) D-Dimer ABG pH POC ABG pCO2 POC ABG pO2 ABG pO2 ABG HCO3 ABG O2 Saturation ABG Base Excess ABG Hemoglobin ABG Oxyhemoglobin ABG Sodium ABG Potassium ABG Chloride ABG Glucose Oxyhemoglobin Carboxyhemoglobin Sodium 128 L Potassium Chloride 96.0 L Carbon Dioxide BUN Creatinine 0.7 L Glucose 238 H POC Glucose Hemoglobin A1c Lactic Acid 4.10 H* Calcium 7.0 L Magnesium Ferritin Total Bilirubin 1.40 H AST 49 H ALT 70 H Alkaline Phosphatase Lactate Dehydrogenase 663 H Total Creatine Kinase C-Reactive Protein 19.80 H Total Protein Albumin 2.9 L Triglycerides Arterial Blood Glucose Arterial Blood Ionized Calcium Ur Specific [place] Vancomycin Trough Coronavirus (PCR) 11/15/20 11/15/20 11/15/20 10:39 10:39 11:20 WBC RBC Hgb Hct RDW Plt Count Lymph % (Auto) [place] % (Auto) Lymph # (Auto) [place] # (Auto) Baso # (Auto) Seg Neutrophils % Seg Neuts % (Manual) Lymphocytes % (Manual) Seg Neutrophils # Seg Neutrophils # Man Lymphocytes # (Manual) D-Dimer > 60801 H ABG pH POC ABG pCO2 29.9 L POC ABG pO2 137.3 H ABG pO2 ABG HCO3 ABG O2 Saturation ABG Base Excess ABG Hemoglobin ABG Oxyhemoglobin ABG Sodium 126.5 L ABG Potassium ABG Chloride ABG Glucose 248 H Oxyhemoglobin Carboxyhemoglobin Sodium Potassium Chloride Carbon Dioxide BUN Creatinine Glucose POC Glucose Hemoglobin A1c Lactic Acid Calcium Magnesium Ferritin 672.8 H Total Bilirubin AST ALT Alkaline Phosphatase Lactate Dehydrogenase Total Creatine Kinase C-Reactive Protein Total Protein Albumin Triglycerides Arterial Blood Glucose 248 H Arterial Blood Ionized Calcium 4.1 L Ur Specific [place] Vancomycin Trough Coronavirus (PCR) 11/15/20 11/15/20 11/16/20 13:41 23:41 01:45 WBC RBC Hgb Hct RDW Plt Count Lymph % (Auto) [place] % (Auto) Lymph # (Auto) [place] # (Auto) Baso # (Auto) Seg Neutrophils % Seg Neuts % (Manual) Lymphocytes % (Manual) Seg Neutrophils # Seg Neutrophils # Man Lymphocytes # (Manual) D-Dimer ABG pH POC ABG pCO2 POC ABG pO2 ABG pO2 ABG HCO3 ABG O2 Saturation ABG Base Excess ABG Hemoglobin ABG Oxyhemoglobin ABG Sodium ABG Potassium ABG Chloride ABG Glucose Oxyhemoglobin Carboxyhemoglobin Sodium Potassium Chloride Carbon Dioxide BUN Creatinine Glucose POC Glucose 284 H Hemoglobin A1c Lactic Acid 2.30 H* Calcium Magnesium Ferritin Total Bilirubin AST ALT Alkaline Phosphatase Lactate Dehydrogenase Total Creatine Kinase C-Reactive Protein Total Protein Albumin Triglycerides Arterial Blood Glucose Arterial Blood Ionized Calcium Ur Specific [place] 1.037 H Vancomycin Trough Coronavirus (PCR) 11/16/20 11/16/20 11/16/20 05:29 05:29 05:29 WBC 12.9 H RBC Hgb Hct RDW Plt Count Lymph % (Auto) 4.5 L [place] % (Auto) Lymph # (Auto) 0.6 L [place] # (Auto) Baso # (Auto) 0.2 H Seg Neutrophils % 89.8 H Seg Neuts % (Manual) Lymphocytes % (Manual) Seg Neutrophils # 11.5 H Seg Neutrophils # Man Lymphocytes # (Manual) D-Dimer ABG pH POC ABG pCO2 POC ABG pO2 ABG pO2 ABG HCO3 ABG O2 Saturation ABG Base Excess ABG Hemoglobin ABG Oxyhemoglobin ABG Sodium ABG Potassium ABG Chloride ABG Glucose Oxyhemoglobin Carboxyhemoglobin Sodium 131 L Potassium Chloride Carbon Dioxide 21 L BUN 23 H Creatinine 0.6 L Glucose 342 H POC Glucose Hemoglobin A1c Lactic Acid 2.60 H* Calcium 7.0 L Magnesium Ferritin Total Bilirubin AST ALT Alkaline Phosphatase Lactate Dehydrogenase Total Creatine Kinase C-Reactive Protein Total Protein Albumin 2.4 L Triglycerides Arterial Blood Glucose Arterial Blood Ionized Calcium Ur Specific [place] Vancomycin Trough Coronavirus (PCR) 11/16/20 11/16/20 11/16/20 05:29 08:11 12:11 WBC RBC Hgb Hct RDW Plt Count Lymph % (Auto) [place] % (Auto) Lymph # (Auto) [place] # (Auto) Baso # (Auto) Seg Neutrophils % Seg Neuts % (Manual) Lymphocytes % (Manual) Seg Neutrophils # Seg Neutrophils # Man Lymphocytes # (Manual) D-Dimer ABG pH POC ABG pCO2 POC ABG pO2 ABG pO2 ABG HCO3 ABG O2 Saturation ABG Base Excess ABG Hemoglobin ABG Oxyhemoglobin ABG Sodium ABG Potassium ABG Chloride ABG Glucose Oxyhemoglobin Carboxyhemoglobin Sodium Potassium Chloride Carbon Dioxide BUN Creatinine Glucose POC Glucose 329 H 320 H Hemoglobin A1c 11.7 H Lactic Acid Calcium Magnesium Ferritin Total Bilirubin AST ALT Alkaline Phosphatase Lactate Dehydrogenase Total Creatine Kinase C-Reactive Protein Total Protein Albumin Triglycerides Arterial Blood Glucose Arterial Blood Ionized Calcium Ur Specific [place] Vancomycin Trough Coronavirus (PCR) 11/16/20 11/16/20 11/16/20 16:13 21:29 Unknown WBC RBC Hgb Hct RDW Plt Count Lymph % (Auto) [place] % (Auto) Lymph # (Auto) [place] # (Auto) Baso # (Auto) Seg Neutrophils % Seg Neuts % (Manual) Lymphocytes % (Manual) Seg Neutrophils # Seg Neutrophils # Man Lymphocytes # (Manual) D-Dimer ABG pH POC ABG pCO2 POC ABG pO2 ABG pO2 ABG HCO3 ABG O2 Saturation ABG Base Excess ABG Hemoglobin ABG Oxyhemoglobin ABG Sodium ABG Potassium ABG Chloride ABG Glucose Oxyhemoglobin Carboxyhemoglobin Sodium Potassium Chloride Carbon Dioxide BUN Creatinine Glucose POC Glucose 257 H 376 H Hemoglobin A1c Lactic Acid Calcium Magnesium Ferritin Total Bilirubin AST ALT Alkaline Phosphatase Lactate Dehydrogenase Total Creatine Kinase C-Reactive Protein Total Protein Albumin Triglycerides Arterial Blood Glucose Arterial Blood Ionized Calcium Ur Specific [place] Vancomycin Trough Coronavirus (PCR) Positive A 11/17/20 11/17/20 11/17/20 07:42 12:07 17:25 WBC RBC Hgb Hct RDW Plt Count Lymph % (Auto) [place] % (Auto) Lymph # (Auto) [place] # (Auto) Baso # (Auto) Seg Neutrophils % Seg Neuts % (Manual) Lymphocytes % (Manual) Seg Neutrophils # Seg Neutrophils # Man Lymphocytes # (Manual) D-Dimer ABG pH POC ABG pCO2 POC ABG pO2 ABG pO2 ABG HCO3 ABG O2 Saturation ABG Base Excess ABG Hemoglobin ABG Oxyhemoglobin ABG Sodium ABG Potassium ABG Chloride ABG Glucose Oxyhemoglobin Carboxyhemoglobin Sodium Potassium Chloride Carbon Dioxide BUN Creatinine Glucose POC Glucose 231 H 380 H 302 H Hemoglobin A1c Lactic Acid Calcium Magnesium Ferritin Total Bilirubin AST ALT Alkaline Phosphatase Lactate Dehydrogenase Total Creatine Kinase C-Reactive Protein Total Protein Albumin Triglycerides Arterial Blood Glucose Arterial Blood Ionized Calcium Ur Specific [place] Vancomycin Trough Coronavirus (PCR) 11/17/20 11/18/20 11/18/20 21:53 04:25 07:45 WBC RBC Hgb Hct RDW Plt Count Lymph % (Auto) [place] % (Auto) Lymph # (Auto) [place] # (Auto) Baso # (Auto) Seg Neutrophils % Seg Neuts % (Manual) Lymphocytes % (Manual) Seg Neutrophils # Seg Neutrophils # Man Lymphocytes # (Manual) D-Dimer ABG pH POC ABG pCO2 POC ABG pO2 ABG pO2 ABG HCO3 ABG O2 Saturation ABG Base Excess ABG Hemoglobin ABG Oxyhemoglobin ABG Sodium ABG Potassium ABG Chloride ABG Glucose Oxyhemoglobin Carboxyhemoglobin Sodium 136 L Potassium Chloride Carbon Dioxide BUN 24 H Creatinine 0.6 L Glucose 212 H POC Glucose 293 H 216 H Hemoglobin A1c Lactic Acid Calcium 7.4 L Magnesium Ferritin Total Bilirubin AST 41 H ALT Alkaline Phosphatase 142 H Lactate Dehydrogenase Total Creatine Kinase C-Reactive Protein Total Protein Albumin 2.3 L Triglycerides Arterial Blood Glucose Arterial Blood Ionized Calcium Ur Specific [place] Vancomycin Trough Coronavirus (PCR) 11/18/20 11/18/20 11/18/20 12:28 15:58 21:37 WBC RBC Hgb Hct RDW Plt Count Lymph % (Auto) [place] % (Auto) Lymph # (Auto) [place] # (Auto) Baso # (Auto) Seg Neutrophils % Seg Neuts % (Manual) Lymphocytes % (Manual) Seg Neutrophils # Seg Neutrophils # Man Lymphocytes # (Manual) D-Dimer ABG pH POC ABG pCO2 POC ABG pO2 ABG pO2 ABG HCO3 ABG O2 Saturation ABG Base Excess ABG Hemoglobin ABG Oxyhemoglobin ABG Sodium ABG Potassium ABG Chloride ABG Glucose Oxyhemoglobin Carboxyhemoglobin Sodium Potassium Chloride Carbon Dioxide BUN Creatinine Glucose POC Glucose 165 H 220 H 311 H Hemoglobin A1c Lactic Acid Calcium Magnesium Ferritin Total Bilirubin AST ALT Alkaline Phosphatase Lactate Dehydrogenase Total Creatine Kinase C-Reactive Protein Total Protein Albumin Triglycerides Arterial Blood Glucose Arterial Blood Ionized Calcium Ur Specific [place] Vancomycin Trough Coronavirus (PCR) 11/19/20 11/19/20 11/19/20 05:35 07:40 12:39 WBC RBC Hgb Hct RDW Plt Count Lymph % (Auto) [place] % (Auto) Lymph # (Auto) [place] # (Auto) Baso # (Auto) Seg Neutrophils % Seg Neuts % (Manual) Lymphocytes % (Manual) Seg Neutrophils # Seg Neutrophils # Man Lymphocytes # (Manual) D-Dimer ABG pH POC ABG pCO2 POC ABG pO2 ABG pO2 ABG HCO3 ABG O2 Saturation ABG Base Excess ABG Hemoglobin ABG Oxyhemoglobin ABG Sodium ABG Potassium ABG Chloride ABG Glucose Oxyhemoglobin Carboxyhemoglobin Sodium 132 L Potassium Chloride Carbon Dioxide BUN 25 H Creatinine 0.5 L Glucose 179 H POC Glucose 149 H 306 H Hemoglobin A1c Lactic Acid Calcium 7.5 L Magnesium Ferritin Total Bilirubin AST ALT Alkaline Phosphatase 139 H Lactate Dehydrogenase Total Creatine Kinase C-Reactive Protein Total Protein Albumin 2.4 L Triglycerides Arterial Blood Glucose Arterial Blood Ionized Calcium Ur Specific [place] Vancomycin Trough Coronavirus (PCR) 11/19/20 11/19/20 11/20/20 16:17 21:25 08:30 WBC RBC Hgb Hct RDW Plt Count Lymph % (Auto) [place] % (Auto) Lymph # (Auto) [place] # (Auto) Baso # (Auto) Seg Neutrophils % Seg Neuts % (Manual) Lymphocytes % (Manual) Seg Neutrophils # Seg Neutrophils # Man Lymphocytes # (Manual) D-Dimer ABG pH POC ABG pCO2 POC ABG pO2 ABG pO2 ABG HCO3 ABG O2 Saturation ABG Base Excess ABG Hemoglobin ABG Oxyhemoglobin ABG Sodium ABG Potassium ABG Chloride ABG Glucose Oxyhemoglobin Carboxyhemoglobin Sodium Potassium Chloride Carbon Dioxide BUN Creatinine Glucose POC Glucose 364 H 347 H 141 H Hemoglobin A1c Lactic Acid Calcium Magnesium Ferritin Total Bilirubin AST ALT Alkaline Phosphatase Lactate Dehydrogenase Total Creatine Kinase C-Reactive Protein Total Protein Albumin Triglycerides Arterial Blood Glucose Arterial Blood Ionized Calcium Ur Specific [place] Vancomycin Trough Coronavirus (PCR) 11/20/20 11/20/20 11/20/20 08:50 11:32 16:19 WBC RBC Hgb Hct RDW Plt Count Lymph % (Auto) [place] % (Auto) Lymph # (Auto) [place] # (Auto) Baso # (Auto) Seg Neutrophils % Seg Neuts % (Manual) Lymphocytes % (Manual) Seg Neutrophils # Seg Neutrophils # Man Lymphocytes # (Manual) D-Dimer ABG pH POC ABG pCO2 POC ABG pO2 ABG pO2 ABG HCO3 ABG O2 Saturation ABG Base Excess ABG Hemoglobin ABG Oxyhemoglobin ABG Sodium ABG Potassium ABG Chloride ABG Glucose Oxyhemoglobin Carboxyhemoglobin Sodium 132 L Potassium Chloride 97.6 L Carbon Dioxide BUN 26 H Creatinine 0.5 L Glucose 201 H POC Glucose 296 H 327 H Hemoglobin A1c Lactic Acid Calcium 7.9 L Magnesium Ferritin Total Bilirubin AST ALT Alkaline Phosphatase 137 H Lactate Dehydrogenase Total Creatine Kinase C-Reactive Protein Total Protein Albumin 2.6 L Triglycerides Arterial Blood Glucose Arterial Blood Ionized Calcium Ur Specific [place] Vancomycin Trough Coronavirus (PCR) 11/20/20 11/21/20 11/21/20 22:09 07:59 13:51 WBC RBC Hgb Hct RDW Plt Count Lymph % (Auto) [place] % (Auto) Lymph # (Auto) [place] # (Auto) Baso # (Auto) Seg Neutrophils % Seg Neuts % (Manual) Lymphocytes % (Manual) Seg Neutrophils # Seg Neutrophils # Man Lymphocytes # (Manual) D-Dimer ABG pH POC ABG pCO2 POC ABG pO2 ABG pO2 ABG HCO3 ABG O2 Saturation ABG Base Excess ABG Hemoglobin ABG Oxyhemoglobin ABG Sodium ABG Potassium ABG Chloride ABG Glucose Oxyhemoglobin Carboxyhemoglobin Sodium Potassium Chloride Carbon Dioxide BUN Creatinine Glucose POC Glucose 311 H 218 H 304 H Hemoglobin A1c Lactic Acid Calcium Magnesium Ferritin Total Bilirubin AST ALT Alkaline Phosphatase Lactate Dehydrogenase Total Creatine Kinase C-Reactive Protein Total Protein Albumin Triglycerides Arterial Blood Glucose Arterial Blood Ionized Calcium Ur Specific [place] Vancomycin Trough Coronavirus (PCR) 11/21/20 11/21/20 11/21/20 16:09 21:34 23:00 WBC RBC Hgb Hct RDW Plt Count Lymph % (Auto) [place] % (Auto) Lymph # (Auto) [place] # (Auto) Baso # (Auto) Seg Neutrophils % Seg Neuts % (Manual) Lymphocytes % (Manual) Seg Neutrophils # Seg Neutrophils # Man Lymphocytes # (Manual) D-Dimer ABG pH 7.206 L POC ABG pCO2 59.3 H POC ABG pO2 76.7 L ABG pO2 ABG HCO3 ABG O2 Saturation ABG Base Excess ABG Hemoglobin ABG Oxyhemoglobin ABG Sodium 133.1 L ABG Potassium ABG Chloride ABG Glucose 320 H Oxyhemoglobin Carboxyhemoglobin Sodium Potassium Chloride Carbon Dioxide BUN Creatinine Glucose POC Glucose 239 H 279 H Hemoglobin A1c Lactic Acid Calcium Magnesium Ferritin Total Bilirubin AST ALT Alkaline Phosphatase Lactate Dehydrogenase Total Creatine Kinase C-Reactive Protein Total Protein Albumin Triglycerides Arterial Blood Glucose 320 H Arterial Blood Ionized Calcium Ur Specific [place] Vancomycin Trough Coronavirus (PCR) 11/22/20 11/22/20 11/22/20 04:52 04:52 04:52 WBC RBC Hgb Hct RDW Plt Count Lymph % (Auto) [place] % (Auto) Lymph # (Auto) [place] # (Auto) Baso # (Auto) Seg Neutrophils % Seg Neuts % (Manual) Lymphocytes % (Manual) Seg Neutrophils # Seg Neutrophils # Man Lymphocytes # (Manual) D-Dimer 1858.36 H ABG pH POC ABG pCO2 POC ABG pO2 ABG pO2 ABG HCO3 ABG O2 Saturation ABG Base Excess ABG Hemoglobin ABG Oxyhemoglobin ABG Sodium ABG Potassium ABG Chloride ABG Glucose Oxyhemoglobin Carboxyhemoglobin Sodium Potassium Chloride Carbon Dioxide BUN Creatinine Glucose POC Glucose Hemoglobin A1c Lactic Acid Calcium Magnesium Ferritin 734.2 H Total Bilirubin AST ALT Alkaline Phosphatase Lactate Dehydrogenase 404 H Total Creatine Kinase C-Reactive Protein 2.80 H Total Protein Albumin Triglycerides Arterial Blood Glucose Arterial Blood Ionized Calcium Ur Specific [place] Vancomycin Trough Coronavirus (PCR) 11/22/20 11/22/20 11/22/20 05:12 05:39 11:50 WBC RBC Hgb Hct RDW Plt Count Lymph % (Auto) [place] % (Auto) Lymph # (Auto) [place] # (Auto) Baso # (Auto) Seg Neutrophils % Seg Neuts % (Manual) Lymphocytes % (Manual) Seg Neutrophils # Seg Neutrophils # Man Lymphocytes # (Manual) D-Dimer ABG pH POC ABG pCO2 POC ABG pO2 51.0 L ABG pO2 ABG HCO3 ABG O2 Saturation ABG Base Excess ABG Hemoglobin ABG Oxyhemoglobin ABG Sodium 131.2 L ABG Potassium 4.6 H ABG Chloride ABG Glucose 317 H Oxyhemoglobin Carboxyhemoglobin Sodium Potassium Chloride Carbon Dioxide BUN Creatinine Glucose POC Glucose 340 H 417 H Hemoglobin A1c Lactic Acid Calcium Magnesium Ferritin Total Bilirubin AST ALT Alkaline Phosphatase Lactate Dehydrogenase Total Creatine Kinase C-Reactive Protein Total Protein Albumin Triglycerides Arterial Blood Glucose 317 H Arterial Blood Ionized Calcium 4.4 L Ur Specific [place] Vancomycin Trough Coronavirus (PCR) 11/22/20 11/22/20 11/22/20 12:22 12:22 17:10 WBC 14.4 H RBC Hgb Hct RDW Plt Count Lymph % (Auto) [place] % (Auto) Lymph # (Auto) [place] # (Auto) Baso # (Auto) Seg Neutrophils % Seg Neuts % (Manual) 98.0 H Lymphocytes % (Manual) Seg Neutrophils # Seg Neutrophils # Man 14.1 H Lymphocytes # (Manual) 0.0 L D-Dimer ABG pH POC ABG pCO2 POC ABG pO2 ABG pO2 ABG HCO3 ABG O2 Saturation ABG Base Excess ABG Hemoglobin ABG Oxyhemoglobin ABG Sodium ABG Potassium ABG Chloride ABG Glucose Oxyhemoglobin Carboxyhemoglobin Sodium 132 L Potassium Chloride Carbon Dioxide BUN 36 H Creatinine 0.6 L Glucose 219 H POC Glucose 157 H Hemoglobin A1c Lactic Acid Calcium 7.2 L Magnesium Ferritin Total Bilirubin AST ALT Alkaline Phosphatase Lactate Dehydrogenase Total Creatine Kinase C-Reactive Protein Total Protein Albumin Triglycerides Arterial Blood Glucose Arterial Blood Ionized Calcium Ur Specific [place] Vancomycin Trough Coronavirus (PCR) 11/22/20 11/22/20 11/22/20 18:33 21:44 23:47 WBC RBC Hgb Hct RDW Plt Count Lymph % (Auto) [place] % (Auto) Lymph # (Auto) [place] # (Auto) Baso # (Auto) Seg Neutrophils % Seg Neuts % (Manual) Lymphocytes % (Manual) Seg Neutrophils # Seg Neutrophils # Man Lymphocytes # (Manual) D-Dimer ABG pH POC ABG pCO2 POC ABG pO2 60.8 L ABG pO2 ABG HCO3 ABG O2 Saturation ABG Base Excess ABG Hemoglobin ABG Oxyhemoglobin 88.1 L ABG Sodium 135.1 L ABG Potassium ABG Chloride ABG Glucose 141 H Oxyhemoglobin Carboxyhemoglobin Sodium Potassium Chloride Carbon Dioxide BUN Creatinine Glucose POC Glucose 117 H 123 H Hemoglobin A1c Lactic Acid Calcium Magnesium Ferritin Total Bilirubin AST ALT Alkaline Phosphatase Lactate Dehydrogenase Total Creatine Kinase C-Reactive Protein Total Protein Albumin Triglycerides Arterial Blood Glucose 141 H Arterial Blood Ionized Calcium Ur Specific [place] Vancomycin Trough Coronavirus (PCR) 11/23/20 11/23/20 11/23/20 04:00 04:00 05:23 WBC 14.4 H RBC Hgb Hct RDW Plt Count Lymph % (Auto) [place] % (Auto) Lymph # (Auto) [place] # (Auto) Baso # (Auto) Seg Neutrophils % Seg Neuts % (Manual) Lymphocytes % (Manual) Seg Neutrophils # Seg Neutrophils # Man Lymphocytes # (Manual) D-Dimer ABG pH POC ABG pCO2 POC ABG pO2 ABG pO2 ABG HCO3 ABG O2 Saturation ABG Base Excess ABG Hemoglobin ABG Oxyhemoglobin ABG Sodium ABG Potassium ABG Chloride ABG Glucose Oxyhemoglobin Carboxyhemoglobin Sodium 136 L Potassium Chloride Carbon Dioxide BUN 33 H Creatinine 0.6 L Glucose 115 H POC Glucose 173 H Hemoglobin A1c Lactic Acid Calcium 7.1 L Magnesium Ferritin Total Bilirubin AST 64 H ALT 75 H Alkaline Phosphatase Lactate Dehydrogenase Total Creatine Kinase C-Reactive Protein Total Protein 5.9 L D Albumin 2.4 L Triglycerides Arterial Blood Glucose Arterial Blood Ionized Calcium Ur Specific [place] Vancomycin Trough Coronavirus (PCR) 11/23/20 11/23/20 11/23/20 05:40 11:27 17:10 WBC RBC Hgb Hct RDW Plt Count Lymph % (Auto) [place] % (Auto) Lymph # (Auto) [place] # (Auto) Baso # (Auto) Seg Neutrophils % Seg Neuts % (Manual) Lymphocytes % (Manual) Seg Neutrophils # Seg Neutrophils # Man Lymphocytes # (Manual) D-Dimer ABG pH POC ABG pCO2 POC ABG pO2 56.5 L ABG pO2 ABG HCO3 ABG O2 Saturation ABG Base Excess ABG Hemoglobin ABG Oxyhemoglobin ABG Sodium ABG Potassium ABG Chloride 109.0 H ABG Glucose 114 H Oxyhemoglobin Carboxyhemoglobin Sodium Potassium Chloride Carbon Dioxide BUN Creatinine Glucose POC Glucose 114 H 136 H Hemoglobin A1c Lactic Acid Calcium Magnesium Ferritin Total Bilirubin AST ALT Alkaline Phosphatase Lactate Dehydrogenase Total Creatine Kinase C-Reactive Protein Total Protein Albumin Triglycerides Arterial Blood Glucose 114 H Arterial Blood Ionized Calcium 4.5 L Ur Specific [place] Vancomycin Trough Coronavirus (PCR) 11/24/20 11/24/20 11/24/20 05:14 05:14 05:14 WBC RBC Hgb Hct RDW Plt Count Lymph % (Auto) [place] % (Auto) Lymph # (Auto) [place] # (Auto) Baso # (Auto) Seg Neutrophils % Seg Neuts % (Manual) Lymphocytes % (Manual) Seg Neutrophils # Seg Neutrophils # Man Lymphocytes # (Manual) D-Dimer 1433.39 H ABG pH POC ABG pCO2 POC ABG pO2 ABG pO2 ABG HCO3 ABG O2 Saturation ABG Base Excess ABG Hemoglobin ABG Oxyhemoglobin ABG Sodium ABG Potassium ABG Chloride ABG Glucose Oxyhemoglobin Carboxyhemoglobin Sodium Potassium Chloride Carbon Dioxide BUN Creatinine Glucose POC Glucose Hemoglobin A1c Lactic Acid Calcium Magnesium Ferritin 997.5 H Total Bilirubin AST ALT Alkaline Phosphatase Lactate Dehydrogenase 463 H Total Creatine Kinase C-Reactive Protein Total Protein Albumin Triglycerides Arterial Blood Glucose Arterial Blood Ionized Calcium Ur Specific [place] Vancomycin Trough Coronavirus (PCR) 11/24/20 11/24/20 11/24/20 05:31 05:36 12:05 WBC RBC Hgb Hct RDW Plt Count Lymph % (Auto) [place] % (Auto) Lymph # (Auto) [place] # (Auto) Baso # (Auto) Seg Neutrophils % Seg Neuts % (Manual) Lymphocytes % (Manual) Seg Neutrophils # Seg Neutrophils # Man Lymphocytes # (Manual) D-Dimer ABG pH POC ABG pCO2 POC ABG pO2 57.2 L ABG pO2 ABG HCO3 ABG O2 Saturation ABG Base Excess ABG Hemoglobin ABG Oxyhemoglobin ABG Sodium ABG Potassium ABG Chloride ABG Glucose 180 H Oxyhemoglobin Carboxyhemoglobin Sodium Potassium Chloride Carbon Dioxide BUN Creatinine Glucose POC Glucose 199 H 143 H Hemoglobin A1c Lactic Acid Calcium Magnesium Ferritin Total Bilirubin AST ALT Alkaline Phosphatase Lactate Dehydrogenase Total Creatine Kinase C-Reactive Protein Total Protein Albumin Triglycerides Arterial Blood Glucose 180 H Arterial Blood Ionized Calcium 4.5 L Ur Specific [place] Vancomycin Trough Coronavirus (PCR) 11/24/20 11/24/20 11/24/20 12:14 17:47 23:47 WBC RBC Hgb Hct RDW Plt Count Lymph % (Auto) [place] % (Auto) Lymph # (Auto) [place] # (Auto) Baso # (Auto) Seg Neutrophils % Seg Neuts % (Manual) Lymphocytes % (Manual) Seg Neutrophils # Seg Neutrophils # Man Lymphocytes # (Manual) D-Dimer ABG pH 7.261 L POC ABG pCO2 59.7 H POC ABG pO2 75.7 L ABG pO2 ABG HCO3 ABG O2 Saturation ABG Base Excess ABG Hemoglobin ABG Oxyhemoglobin 92.5 L ABG Sodium ABG Potassium ABG Chloride 108.0 H ABG Glucose 150 H Oxyhemoglobin Carboxyhemoglobin Sodium Potassium Chloride Carbon Dioxide BUN Creatinine Glucose POC Glucose 223 H 179 H Hemoglobin A1c Lactic Acid Calcium Magnesium Ferritin Total Bilirubin AST ALT Alkaline Phosphatase Lactate Dehydrogenase Total Creatine Kinase C-Reactive Protein Total Protein Albumin Triglycerides Arterial Blood Glucose 150 H Arterial Blood Ionized Calcium Ur Specific [place] Vancomycin Trough Coronavirus (PCR) 11/25/20 11/25/20 11/25/20 03:29 05:07 05:15 WBC 13.9 H RBC Hgb Hct RDW Plt Count Lymph % (Auto) [place] % (Auto) Lymph # (Auto) [place] # (Auto) Baso # (Auto) Seg Neutrophils % Seg Neuts % (Manual) 97.0 H Lymphocytes % (Manual) Seg Neutrophils # Seg Neutrophils # Man 13.5 H Lymphocytes # (Manual) 0.0 L D-Dimer ABG pH 7.272 L POC ABG pCO2 69.0 H POC ABG pO2 132.9 H ABG pO2 ABG HCO3 ABG O2 Saturation ABG Base Excess ABG Hemoglobin ABG Oxyhemoglobin ABG Sodium ABG Potassium ABG Chloride ABG Glucose 174 H Oxyhemoglobin Carboxyhemoglobin Sodium Potassium Chloride Carbon Dioxide BUN Creatinine Glucose POC Glucose 168 H Hemoglobin A1c Lactic Acid Calcium Magnesium Ferritin Total Bilirubin AST ALT Alkaline Phosphatase Lactate Dehydrogenase Total Creatine Kinase C-Reactive Protein Total Protein Albumin Triglycerides Arterial Blood Glucose 174 H Arterial Blood Ionized Calcium Ur Specific [place] Vancomycin Trough Coronavirus (PCR) 11/25/20 11/25/20 11/25/20 05:15 11:25 17:35 WBC RBC Hgb Hct RDW Plt Count Lymph % (Auto) [place] % (Auto) Lymph # (Auto) [place] # (Auto) Baso # (Auto) Seg Neutrophils % Seg Neuts % (Manual) Lymphocytes % (Manual) Seg Neutrophils # Seg Neutrophils # Man Lymphocytes # (Manual) D-Dimer ABG pH POC ABG pCO2 POC ABG pO2 ABG pO2 ABG HCO3 ABG O2 Saturation ABG Base Excess ABG Hemoglobin ABG Oxyhemoglobin ABG Sodium ABG Potassium ABG Chloride ABG Glucose Oxyhemoglobin Carboxyhemoglobin Sodium Potassium Chloride Carbon Dioxide BUN 29 H Creatinine 0.5 L Glucose 161 H POC Glucose 224 H 228 H Hemoglobin A1c Lactic Acid Calcium 7.8 L Magnesium Ferritin Total Bilirubin AST 89 H ALT 129 H Alkaline Phosphatase Lactate Dehydrogenase Total Creatine Kinase C-Reactive Protein Total Protein 5.8 L Albumin 2.5 L Triglycerides Arterial Blood Glucose Arterial Blood Ionized Calcium Ur Specific [place] Vancomycin Trough Coronavirus (PCR) 11/25/20 11/25/20 11/26/20 20:45 23:28 04:00 WBC RBC Hgb Hct RDW Plt Count Lymph % (Auto) [place] % (Auto) Lymph # (Auto) [place] # (Auto) Baso # (Auto) Seg Neutrophils % Seg Neuts % (Manual) Lymphocytes % (Manual) Seg Neutrophils # Seg Neutrophils # Man Lymphocytes # (Manual) D-Dimer ABG pH POC ABG pCO2 POC ABG pO2 ABG pO2 ABG HCO3 ABG O2 Saturation ABG Base Excess ABG Hemoglobin ABG Oxyhemoglobin ABG Sodium ABG Potassium ABG Chloride ABG Glucose Oxyhemoglobin Carboxyhemoglobin Sodium Potassium Chloride Carbon Dioxide BUN Creatinine Glucose POC Glucose 177 H 243 H Hemoglobin A1c Lactic Acid Calcium Magnesium Ferritin 778.8 H Total Bilirubin AST ALT Alkaline Phosphatase Lactate Dehydrogenase Total Creatine Kinase C-Reactive Protein Total Protein Albumin Triglycerides Arterial Blood Glucose Arterial Blood Ionized Calcium Ur Specific [place] Vancomycin Trough Coronavirus (PCR) 11/26/20 11/26/20 11/26/20 04:00 05:34 06:04 WBC RBC Hgb Hct RDW Plt Count Lymph % (Auto) [place] % (Auto) Lymph # (Auto) [place] # (Auto) Baso # (Auto) Seg Neutrophils % Seg Neuts % (Manual) Lymphocytes % (Manual) Seg Neutrophils # Seg Neutrophils # Man Lymphocytes # (Manual) D-Dimer 926.11 H ABG pH POC ABG pCO2 POC ABG pO2 ABG pO2 ABG HCO3 ABG O2 Saturation ABG Base Excess ABG Hemoglobin ABG Oxyhemoglobin ABG Sodium ABG Potassium ABG Chloride ABG Glucose Oxyhemoglobin Carboxyhemoglobin Sodium Potassium Chloride Carbon Dioxide 39 H D BUN 30 H Creatinine 0.5 L Glucose 193 H POC Glucose 178 H Hemoglobin A1c Lactic Acid Calcium 7.7 L Magnesium Ferritin Total Bilirubin AST 65 H ALT 132 H Alkaline Phosphatase Lactate Dehydrogenase 288 H Total Creatine Kinase C-Reactive Protein 1.40 H Total Protein 5.7 L Albumin 2.4 L Triglycerides Arterial Blood Glucose Arterial Blood Ionized Calcium Ur Specific [place] Vancomycin Trough Coronavirus (PCR) 11/26/20 11/26/20 11/26/20 06:04 08:47 11:20 WBC 12.4 H RBC Hgb Hct RDW Plt Count Lymph % (Auto) [place] % (Auto) Lymph # (Auto) [place] # (Auto) Baso # (Auto) Seg Neutrophils % Seg Neuts % (Manual) 98.0 H Lymphocytes % (Manual) 1.0 L Seg Neutrophils # Seg Neutrophils # Man 12.2 H Lymphocytes # (Manual) 0.1 L D-Dimer ABG pH POC ABG pCO2 75.2 H POC ABG pO2 61.9 L ABG pO2 ABG HCO3 ABG O2 Saturation ABG Base Excess ABG Hemoglobin ABG Oxyhemoglobin 90.3 L ABG Sodium ABG Potassium ABG Chloride ABG Glucose 243 H Oxyhemoglobin Carboxyhemoglobin Sodium Potassium Chloride Carbon Dioxide BUN Creatinine Glucose POC Glucose 255 H Hemoglobin A1c Lactic Acid Calcium Magnesium Ferritin Total Bilirubin AST ALT Alkaline Phosphatase Lactate Dehydrogenase Total Creatine Kinase C-Reactive Protein Total Protein Albumin Triglycerides Arterial Blood Glucose 243 H Arterial Blood Ionized Calcium Ur Specific [place] Vancomycin Trough Coronavirus (PCR) 11/26/20 11/26/20 11/26/20 16:20 17:15 23:41 WBC RBC Hgb Hct RDW Plt Count Lymph % (Auto) [place] % (Auto) Lymph # (Auto) [place] # (Auto) Baso # (Auto) Seg Neutrophils % Seg Neuts % (Manual) Lymphocytes % (Manual) Seg Neutrophils # Seg Neutrophils # Man Lymphocytes # (Manual) D-Dimer ABG pH POC ABG pCO2 66.6 H POC ABG pO2 78.1 L ABG pO2 ABG HCO3 ABG O2 Saturation ABG Base Excess ABG Hemoglobin ABG Oxyhemoglobin ABG Sodium ABG Potassium ABG Chloride ABG Glucose 244 H Oxyhemoglobin Carboxyhemoglobin Sodium Potassium Chloride Carbon Dioxide BUN Creatinine Glucose POC Glucose 219 H 210 H Hemoglobin A1c Lactic Acid Calcium Magnesium Ferritin Total Bilirubin AST ALT Alkaline Phosphatase Lactate Dehydrogenase Total Creatine Kinase C-Reactive Protein Total Protein Albumin Triglycerides Arterial Blood Glucose 244 H Arterial Blood Ionized Calcium Ur Specific [place] Vancomycin Trough Coronavirus (PCR) 11/27/20 11/27/20 11/27/20 04:46 05:38 06:25 WBC 13.8 H RBC Hgb Hct RDW Plt Count Lymph % (Auto) 2.0 L [place] % (Auto) Lymph # (Auto) 0.3 L [place] # (Auto) Baso # (Auto) Seg Neutrophils % Seg Neuts % (Manual) 96.0 H Lymphocytes % (Manual) Seg Neutrophils # 12.7 H Seg Neutrophils # Man 13.2 H Lymphocytes # (Manual) 0.0 L D-Dimer ABG pH POC ABG pCO2 63.0 H POC ABG pO2 53.6 L ABG pO2 ABG HCO3 ABG O2 Saturation ABG Base Excess ABG Hemoglobin ABG Oxyhemoglobin 87.8 L ABG Sodium 115.4 L ABG Potassium ABG Chloride ABG Glucose 219 H Oxyhemoglobin Carboxyhemoglobin Sodium Potassium Chloride Carbon Dioxide BUN Creatinine Glucose POC Glucose 227 H Hemoglobin A1c Lactic Acid Calcium Magnesium Ferritin Total Bilirubin AST ALT Alkaline Phosphatase Lactate Dehydrogenase Total Creatine Kinase C-Reactive Protein Total Protein Albumin Triglycerides Arterial Blood Glucose 219 H Arterial Blood Ionized Calcium Ur Specific [place] Vancomycin Trough Coronavirus (PCR) 11/27/20 11/27/20 11/27/20 06:25 18:05 23:29 WBC RBC Hgb Hct RDW Plt Count Lymph % (Auto) [place] % (Auto) Lymph # (Auto) [place] # (Auto) Baso # (Auto) Seg Neutrophils % Seg Neuts % (Manual) Lymphocytes % (Manual) Seg Neutrophils # Seg Neutrophils # Man Lymphocytes # (Manual) D-Dimer ABG pH POC ABG pCO2 POC ABG pO2 ABG pO2 ABG HCO3 ABG O2 Saturation ABG Base Excess ABG Hemoglobin ABG Oxyhemoglobin ABG Sodium ABG Potassium ABG Chloride ABG Glucose Oxyhemoglobin Carboxyhemoglobin Sodium Potassium Chloride Carbon Dioxide 38 H BUN 34 H Creatinine 0.4 L Glucose 243 H POC Glucose 329 H 227 H Hemoglobin A1c Lactic Acid Calcium 7.9 L Magnesium Ferritin Total Bilirubin AST 50 H ALT 110 H Alkaline Phosphatase Lactate Dehydrogenase Total Creatine Kinase C-Reactive Protein Total Protein 6.1 L Albumin 2.4 L Triglycerides Arterial Blood Glucose Arterial Blood Ionized Calcium Ur Specific [place] Vancomycin Trough Coronavirus (PCR) 11/28/20 11/28/20 11/28/20 03:45 03:45 03:46 WBC 12.2 H RBC Hgb Hct RDW Plt Count Lymph % (Auto) [place] % (Auto) Lymph # (Auto) [place] # (Auto) Baso # (Auto) Seg Neutrophils % Seg Neuts % (Manual) 93.0 H Lymphocytes % (Manual) 2.0 L Seg Neutrophils # Seg Neutrophils # Man 11.3 H Lymphocytes # (Manual) 0.2 L D-Dimer ABG pH POC ABG pCO2 68.4 H POC ABG pO2 55.4 L ABG pO2 ABG HCO3 ABG O2 Saturation ABG Base Excess ABG Hemoglobin ABG Oxyhemoglobin ABG Sodium ABG Potassium ABG Chloride ABG Glucose 197 H Oxyhemoglobin Carboxyhemoglobin Sodium Potassium Chloride Carbon Dioxide 36 H BUN 37 H Creatinine 0.4 L Glucose 194 H POC Glucose Hemoglobin A1c Lactic Acid Calcium 8.1 L Magnesium Ferritin Total Bilirubin AST ALT 86 H Alkaline Phosphatase Lactate Dehydrogenase Total Creatine Kinase C-Reactive Protein Total Protein 6.0 L Albumin 2.3 L Triglycerides Arterial Blood Glucose 197 H Arterial Blood Ionized Calcium Ur Specific [place] Vancomycin Trough Coronavirus (PCR) 11/28/20 11/28/20 11/29/20 05:24 12:21 04:41 WBC RBC Hgb Hct RDW Plt Count Lymph % (Auto) [place] % (Auto) Lymph # (Auto) [place] # (Auto) Baso # (Auto) Seg Neutrophils % Seg Neuts % (Manual) Lymphocytes % (Manual) Seg Neutrophils # Seg Neutrophils # Man Lymphocytes # (Manual) D-Dimer ABG pH POC ABG pCO2 55.1 H POC ABG pO2 53.6 L ABG pO2 ABG HCO3 ABG O2 Saturation ABG Base Excess ABG Hemoglobin ABG Oxyhemoglobin 87.1 L ABG Sodium 131.2 L ABG Potassium ABG Chloride ABG Glucose 164 H Oxyhemoglobin Carboxyhemoglobin Sodium Potassium Chloride Carbon Dioxide BUN Creatinine Glucose POC Glucose 173 H 126 H Hemoglobin A1c Lactic Acid Calcium Magnesium Ferritin Total Bilirubin AST ALT Alkaline Phosphatase Lactate Dehydrogenase Total Creatine Kinase C-Reactive Protein Total Protein Albumin Triglycerides Arterial Blood Glucose 164 H Arterial Blood Ionized Calcium 4.4 L Ur Specific [place] Vancomycin Trough Coronavirus (PCR) 11/29/20 11/29/20 11/29/20 05:29 12:41 13:28 WBC RBC Hgb Hct RDW Plt Count Lymph % (Auto) [place] % (Auto) Lymph # (Auto) [place] # (Auto) Baso # (Auto) Seg Neutrophils % Seg Neuts % (Manual) Lymphocytes % (Manual) Seg Neutrophils # Seg Neutrophils # Man Lymphocytes # (Manual) D-Dimer ABG pH POC ABG pCO2 POC ABG pO2 ABG pO2 ABG HCO3 ABG O2 Saturation ABG Base Excess ABG Hemoglobin ABG Oxyhemoglobin ABG Sodium ABG Potassium ABG Chloride ABG Glucose Oxyhemoglobin Carboxyhemoglobin Sodium Potassium Chloride Carbon Dioxide 40 H BUN 32 H Creatinine 0.4 L Glucose 274 H POC Glucose 173 H 257 H Hemoglobin A1c Lactic Acid Calcium 7.2 L Magnesium Ferritin Total Bilirubin AST 57 H ALT 102 H Alkaline Phosphatase Lactate Dehydrogenase Total Creatine Kinase C-Reactive Protein Total Protein 5.7 L Albumin 2.1 L Triglycerides Arterial Blood Glucose Arterial Blood Ionized Calcium Ur Specific [place] Vancomycin Trough Coronavirus (PCR) 11/29/20 11/29/20 11/29/20 15:40 17:36 21:26 WBC RBC Hgb Hct RDW Plt Count Lymph % (Auto) [place] % (Auto) Lymph # (Auto) [place] # (Auto) Baso # (Auto) Seg Neutrophils % Seg Neuts % (Manual) Lymphocytes % (Manual) Seg Neutrophils # Seg Neutrophils # Man Lymphocytes # (Manual) D-Dimer ABG pH POC ABG pCO2 POC ABG pO2 ABG pO2 ABG HCO3 ABG O2 Saturation ABG Base Excess ABG Hemoglobin ABG Oxyhemoglobin ABG Sodium ABG Potassium ABG Chloride ABG Glucose Oxyhemoglobin Carboxyhemoglobin Sodium Potassium Chloride Carbon Dioxide BUN Creatinine Glucose POC Glucose 240 H 244 H Hemoglobin A1c Lactic Acid Calcium Magnesium Ferritin Total Bilirubin AST ALT Alkaline Phosphatase Lactate Dehydrogenase Total Creatine Kinase C-Reactive Protein Total Protein Albumin Triglycerides Arterial Blood Glucose Arterial Blood Ionized Calcium Ur Specific [place] Vancomycin Trough 4.0 L Coronavirus (PCR) 11/29/20 11/30/20 11/30/20 23:26 03:30 03:30 WBC RBC Hgb Hct RDW Plt Count Lymph % (Auto) [place] % (Auto) Lymph # (Auto) [place] # (Auto) Baso # (Auto) Seg Neutrophils % Seg Neuts % (Manual) 97.0 H Lymphocytes % (Manual) 1.0 L Seg Neutrophils # Seg Neutrophils # Man 9.9 H Lymphocytes # (Manual) 0.1 L D-Dimer ABG pH POC ABG pCO2 POC ABG pO2 ABG pO2 ABG HCO3 ABG O2 Saturation ABG Base Excess ABG Hemoglobin ABG Oxyhemoglobin ABG Sodium ABG Potassium ABG Chloride ABG Glucose Oxyhemoglobin Carboxyhemoglobin Sodium Potassium Chloride Carbon Dioxide 38 H BUN 34 H Creatinine 0.4 L Glucose 305 H POC Glucose 283 H Hemoglobin A1c Lactic Acid Calcium 7.6 L Magnesium Ferritin Total Bilirubin AST ALT 89 H Alkaline Phosphatase Lactate Dehydrogenase Total Creatine Kinase C-Reactive Protein Total Protein 6.0 L Albumin 2.3 L Triglycerides Arterial Blood Glucose Arterial Blood Ionized Calcium Ur Specific [place] Vancomycin Trough Coronavirus (PCR) 11/30/20 11/30/20 11/30/20 03:57 05:22 12:05 WBC RBC Hgb Hct RDW Plt Count Lymph % (Auto) [place] % (Auto) Lymph # (Auto) [place] # (Auto) Baso # (Auto) Seg Neutrophils % Seg Neuts % (Manual) Lymphocytes % (Manual) Seg Neutrophils # Seg Neutrophils # Man Lymphocytes # (Manual) D-Dimer ABG pH POC ABG pCO2 60.8 H POC ABG pO2 51.1 L ABG pO2 ABG HCO3 ABG O2 Saturation ABG Base Excess ABG Hemoglobin ABG Oxyhemoglobin 84.6 L ABG Sodium ABG Potassium ABG Chloride ABG Glucose 315 H Oxyhemoglobin Carboxyhemoglobin Sodium Potassium Chloride Carbon Dioxide BUN Creatinine Glucose POC Glucose 295 H 413 H Hemoglobin A1c Lactic Acid Calcium Magnesium Ferritin Total Bilirubin AST ALT Alkaline Phosphatase Lactate Dehydrogenase Total Creatine Kinase C-Reactive Protein Total Protein Albumin Triglycerides Arterial Blood Glucose 315 H Arterial Blood Ionized Calcium 4.5 L Ur Specific [place] Vancomycin Trough Coronavirus (PCR) 11/30/20 11/30/20 12/01/20 17:24 23:25 02:14 WBC RBC Hgb Hct RDW Plt Count Lymph % (Auto) [place] % (Auto) Lymph # (Auto) [place] # (Auto) Baso # (Auto) Seg Neutrophils % Seg Neuts % (Manual) Lymphocytes % (Manual) Seg Neutrophils # Seg Neutrophils # Man Lymphocytes # (Manual) D-Dimer ABG pH 7.278 L POC ABG pCO2 78.1 H POC ABG pO2 79.5 L ABG pO2 ABG HCO3 ABG O2 Saturation ABG Base Excess ABG Hemoglobin 11.6 L ABG Oxyhemoglobin ABG Sodium 134.5 L ABG Potassium 4.6 H ABG Chloride ABG Glucose 286 H Oxyhemoglobin Carboxyhemoglobin Sodium Potassium Chloride Carbon Dioxide BUN Creatinine Glucose POC Glucose 305 H 302 H Hemoglobin A1c Lactic Acid Calcium Magnesium Ferritin Total Bilirubin AST ALT Alkaline Phosphatase Lactate Dehydrogenase Total Creatine Kinase C-Reactive Protein Total Protein Albumin Triglycerides Arterial Blood Glucose 286 H Arterial Blood Ionized Calcium Ur Specific [place] Vancomycin Trough Coronavirus (PCR) 12/01/20 12/01/20 12/01/20 03:35 03:35 05:22 WBC 13.4 H RBC 3.54 L Hgb 10.4 L Hct 31.8 L RDW Plt Count Lymph % (Auto) [place] % (Auto) Lymph # (Auto) [place] # (Auto) Baso # (Auto) Seg Neutrophils % Seg Neuts % (Manual) 95.0 H Lymphocytes % (Manual) 3.0 L Seg Neutrophils # Seg Neutrophils # Man 12.7 H Lymphocytes # (Manual) 0.4 L D-Dimer ABG pH POC ABG pCO2 POC ABG pO2 ABG pO2 ABG HCO3 ABG O2 Saturation ABG Base Excess ABG Hemoglobin ABG Oxyhemoglobin ABG Sodium ABG Potassium ABG Chloride ABG Glucose Oxyhemoglobin Carboxyhemoglobin Sodium Potassium Chloride Carbon Dioxide 35 H BUN 34 H Creatinine 0.5 L Glucose 279 H POC Glucose 259 H Hemoglobin A1c Lactic Acid Calcium 7.6 L Magnesium Ferritin Total Bilirubin AST ALT 63 H Alkaline Phosphatase Lactate Dehydrogenase Total Creatine Kinase C-Reactive Protein Total Protein 4.8 L Albumin 2.1 L Triglycerides Arterial Blood Glucose Arterial Blood Ionized Calcium Ur Specific [place] Vancomycin Trough Coronavirus (PCR) 12/01/20 12/01/20 12/01/20 12:05 17:40 23:46 WBC RBC Hgb Hct RDW Plt Count Lymph % (Auto) [place] % (Auto) Lymph # (Auto) [place] # (Auto) Baso # (Auto) Seg Neutrophils % Seg Neuts % (Manual) Lymphocytes % (Manual) Seg Neutrophils # Seg Neutrophils # Man Lymphocytes # (Manual) D-Dimer ABG pH POC ABG pCO2 POC ABG pO2 ABG pO2 ABG HCO3 ABG O2 Saturation ABG Base Excess ABG Hemoglobin ABG Oxyhemoglobin ABG Sodium ABG Potassium ABG Chloride ABG Glucose Oxyhemoglobin Carboxyhemoglobin Sodium Potassium Chloride Carbon Dioxide BUN Creatinine Glucose POC Glucose 197 H 244 H 284 H Hemoglobin A1c Lactic Acid Calcium Magnesium Ferritin Total Bilirubin AST ALT Alkaline Phosphatase Lactate Dehydrogenase Total Creatine Kinase C-Reactive Protein Total Protein Albumin Triglycerides Arterial Blood Glucose Arterial Blood Ionized Calcium Ur Specific [place] Vancomycin Trough Coronavirus (PCR) 12/02/20 12/02/20 12/02/20 02:14 03:03 04:11 WBC 16.5 H RBC 3.55 L Hgb 10.5 L Hct 31.9 L RDW Plt Count Lymph % (Auto) [place] % (Auto) Lymph # (Auto) [place] # (Auto) Baso # (Auto) Seg Neutrophils % Seg Neuts % (Manual) 90.0 H Lymphocytes % (Manual) 3.0 L Seg Neutrophils # Seg Neutrophils # Man 14.9 H Lymphocytes # (Manual) 0.5 L D-Dimer ABG pH POC ABG pCO2 74.8 H POC ABG pO2 58.9 L ABG pO2 ABG HCO3 ABG O2 Saturation ABG Base Excess ABG Hemoglobin 11.5 L ABG Oxyhemoglobin ABG Sodium ABG Potassium ABG Chloride ABG Glucose 264 H Oxyhemoglobin Carboxyhemoglobin Sodium Potassium Chloride Carbon Dioxide 37 H BUN 30 H Creatinine 0.4 L Glucose 245 H POC Glucose Hemoglobin A1c Lactic Acid Calcium 7.5 L Magnesium Ferritin Total Bilirubin AST ALT Alkaline Phosphatase Lactate Dehydrogenase Total Creatine Kinase C-Reactive Protein Total Protein 5.2 L Albumin 2.2 L Triglycerides Arterial Blood Glucose 264 H Arterial Blood Ionized Calcium 4.5 L Ur Specific [place] Vancomycin Trough Coronavirus (PCR) 12/02/20 12/02/20 12/02/20 05:19 11:46 17:52 WBC RBC Hgb Hct RDW Plt Count Lymph % (Auto) [place] % (Auto) Lymph # (Auto) [place] # (Auto) Baso # (Auto) Seg Neutrophils % Seg Neuts % (Manual) Lymphocytes % (Manual) Seg Neutrophils # Seg Neutrophils # Man Lymphocytes # (Manual) D-Dimer ABG pH POC ABG pCO2 POC ABG pO2 ABG pO2 ABG HCO3 ABG O2 Saturation ABG Base Excess ABG Hemoglobin ABG Oxyhemoglobin ABG Sodium ABG Potassium ABG Chloride ABG Glucose Oxyhemoglobin Carboxyhemoglobin Sodium Potassium Chloride Carbon Dioxide BUN Creatinine Glucose POC Glucose 238 H 236 H 233 H Hemoglobin A1c Lactic Acid Calcium Magnesium Ferritin Total Bilirubin AST ALT Alkaline Phosphatase Lactate Dehydrogenase Total Creatine Kinase C-Reactive Protein Total Protein Albumin Triglycerides Arterial Blood Glucose Arterial Blood Ionized Calcium Ur Specific [place] Vancomycin Trough Coronavirus (PCR) 12/02/20 12/03/20 12/03/20 23:23 03:21 04:35 WBC RBC Hgb Hct RDW Plt Count 112 L Lymph % (Auto) [place] % (Auto) Lymph # (Auto) [place] # (Auto) Baso # (Auto) Seg Neutrophils % Seg Neuts % (Manual) 93.0 H Lymphocytes % (Manual) 4.0 L Seg Neutrophils # Seg Neutrophils # Man 9.1 H Lymphocytes # (Manual) 0.4 L D-Dimer ABG pH 7.299 L POC ABG pCO2 82.1 H POC ABG pO2 62.4 L ABG pO2 ABG HCO3 ABG O2 Saturation ABG Base Excess ABG Hemoglobin 11.5 L ABG Oxyhemoglobin 89.6 L ABG Sodium 134.3 L ABG Potassium ABG Chloride 95.0 L ABG Glucose 203 H Oxyhemoglobin Carboxyhemoglobin Sodium Potassium Chloride Carbon Dioxide BUN Creatinine Glucose POC Glucose 213 H Hemoglobin A1c Lactic Acid Calcium Magnesium Ferritin Total Bilirubin AST ALT Alkaline Phosphatase Lactate Dehydrogenase Total Creatine Kinase C-Reactive Protein Total Protein Albumin Triglycerides Arterial Blood Glucose 203 H Arterial Blood Ionized Calcium 4.5 L Ur Specific [place] Vancomycin Trough Coronavirus (PCR) 12/03/20 12/03/20 12/03/20 04:35 05:42 11:28 WBC RBC Hgb Hct RDW Plt Count Lymph % (Auto) [place] % (Auto) Lymph # (Auto) [place] # (Auto) Baso # (Auto) Seg Neutrophils % Seg Neuts % (Manual) Lymphocytes % (Manual) Seg Neutrophils # Seg Neutrophils # Man Lymphocytes # (Manual) D-Dimer ABG pH POC ABG pCO2 POC ABG pO2 ABG pO2 ABG HCO3 ABG O2 Saturation ABG Base Excess ABG Hemoglobin ABG Oxyhemoglobin ABG Sodium ABG Potassium ABG Chloride ABG Glucose Oxyhemoglobin Carboxyhemoglobin Sodium Potassium Chloride 97.8 L Carbon Dioxide 43 H* BUN 25 H Creatinine 0.3 L Glucose 214 H POC Glucose 193 H 211 H Hemoglobin A1c Lactic Acid Calcium 7.7 L Magnesium Ferritin Total Bilirubin AST ALT 63 H Alkaline Phosphatase 132 H Lactate Dehydrogenase Total Creatine Kinase C-Reactive Protein Total Protein 5.1 L Albumin 2.4 L Triglycerides Arterial Blood Glucose Arterial Blood Ionized Calcium Ur Specific [place] Vancomycin Trough Coronavirus (PCR) 12/03/20 12/03/20 12/04/20 17:45 23:57 00:11 WBC RBC Hgb Hct RDW Plt Count Lymph % (Auto) [place] % (Auto) Lymph # (Auto) [place] # (Auto) Baso # (Auto) Seg Neutrophils % Seg Neuts % (Manual) Lymphocytes % (Manual) Seg Neutrophils # Seg Neutrophils # Man Lymphocytes # (Manual) D-Dimer ABG pH POC ABG pCO2 POC ABG pO2 ABG pO2 ABG HCO3 ABG O2 Saturation ABG Base Excess ABG Hemoglobin ABG Oxyhemoglobin ABG Sodium ABG Potassium ABG Chloride ABG Glucose Oxyhemoglobin Carboxyhemoglobin Sodium Potassium Chloride Carbon Dioxide BUN Creatinine Glucose POC Glucose 231 H 240 H 239 H Hemoglobin A1c Lactic Acid Calcium Magnesium Ferritin Total Bilirubin AST ALT Alkaline Phosphatase Lactate Dehydrogenase Total Creatine Kinase C-Reactive Protein Total Protein Albumin Triglycerides Arterial Blood Glucose Arterial Blood Ionized Calcium Ur Specific [place] Vancomycin Trough Coronavirus (PCR) 12/04/20 12/04/20 12/04/20 04:00 05:20 05:34 WBC RBC Hgb Hct RDW Plt Count Lymph % (Auto) [place] % (Auto) Lymph # (Auto) [place] # (Auto) Baso # (Auto) Seg Neutrophils % Seg Neuts % (Manual) Lymphocytes % (Manual) Seg Neutrophils # Seg Neutrophils # Man Lymphocytes # (Manual) D-Dimer ABG pH POC ABG pCO2 84.4 H POC ABG pO2 68.0 L ABG pO2 ABG HCO3 ABG O2 Saturation ABG Base Excess ABG Hemoglobin 11.6 L ABG Oxyhemoglobin ABG Sodium 130.9 L ABG Potassium ABG Chloride 90.0 L ABG Glucose 244 H Oxyhemoglobin Carboxyhemoglobin Sodium Potassium Chloride Carbon Dioxide BUN Creatinine Glucose POC Glucose 241 H 213 H Hemoglobin A1c Lactic Acid Calcium Magnesium Ferritin Total Bilirubin AST ALT Alkaline Phosphatase Lactate Dehydrogenase Total Creatine Kinase C-Reactive Protein Total Protein Albumin Triglycerides Arterial Blood Glucose 244 H Arterial Blood Ionized Calcium 4.4 L Ur Specific [place] Vancomycin Trough Coronavirus (PCR) 12/04/20 12/04/20 12/04/20 11:36 16:53 23:32 WBC RBC Hgb Hct RDW Plt Count Lymph % (Auto) [place] % (Auto) Lymph # (Auto) [place] # (Auto) Baso # (Auto) Seg Neutrophils % Seg Neuts % (Manual) Lymphocytes % (Manual) Seg Neutrophils # Seg Neutrophils # Man Lymphocytes # (Manual) D-Dimer ABG pH POC ABG pCO2 POC ABG pO2 ABG pO2 ABG HCO3 ABG O2 Saturation ABG Base Excess ABG Hemoglobin ABG Oxyhemoglobin ABG Sodium ABG Potassium ABG Chloride ABG Glucose Oxyhemoglobin Carboxyhemoglobin Sodium Potassium Chloride Carbon Dioxide BUN Creatinine Glucose POC Glucose 196 H 127 H 230 H Hemoglobin A1c Lactic Acid Calcium Magnesium Ferritin Total Bilirubin AST ALT Alkaline Phosphatase Lactate Dehydrogenase Total Creatine Kinase C-Reactive Protein Total Protein Albumin Triglycerides Arterial Blood Glucose Arterial Blood Ionized Calcium Ur Specific [place] Vancomycin Trough Coronavirus (PCR) 12/04/20 12/05/20 12/05/20 Unknown 04:16 05:21 WBC RBC Hgb Hct RDW Plt Count Lymph % (Auto) [place] % (Auto) Lymph # (Auto) [place] # (Auto) Baso # (Auto) Seg Neutrophils % Seg Neuts % (Manual) Lymphocytes % (Manual) Seg Neutrophils # Seg Neutrophils # Man Lymphocytes # (Manual) D-Dimer ABG pH POC ABG pCO2 86.7 H POC ABG pO2 58.0 L ABG pO2 ABG HCO3 ABG O2 Saturation ABG Base Excess ABG Hemoglobin 11.6 L ABG Oxyhemoglobin 89 L ABG Sodium 130.1 L ABG Potassium 4.9 H ABG Chloride 89.0 L ABG Glucose 254 H Oxyhemoglobin Carboxyhemoglobin Sodium 136 L Potassium Chloride 90.0 L Carbon Dioxide 46 H* BUN 24 H Creatinine 0.3 L Glucose 226 H POC Glucose 213 H Hemoglobin A1c Lactic Acid Calcium 7.6 L Magnesium Ferritin Total Bilirubin AST 46 H ALT 78 H Alkaline Phosphatase 172 H Lactate Dehydrogenase Total Creatine Kinase C-Reactive Protein Total Protein 6.0 L Albumin 2.8 L Triglycerides 156 H Arterial Blood Glucose 254 H Arterial Blood Ionized Calcium 4.4 L Ur Specific [place] Vancomycin Trough Coronavirus (PCR) 12/05/20 12/05/20 12/05/20 11:22 17:26 23:38 WBC RBC Hgb Hct RDW Plt Count Lymph % (Auto) [place] % (Auto) Lymph # (Auto) [place] # (Auto) Baso # (Auto) Seg Neutrophils % Seg Neuts % (Manual) Lymphocytes % (Manual) Seg Neutrophils # Seg Neutrophils # Man Lymphocytes # (Manual) D-Dimer ABG pH POC ABG pCO2 POC ABG pO2 ABG pO2 ABG HCO3 ABG O2 Saturation ABG Base Excess ABG Hemoglobin ABG Oxyhemoglobin ABG Sodium ABG Potassium ABG Chloride ABG Glucose Oxyhemoglobin Carboxyhemoglobin Sodium Potassium Chloride Carbon Dioxide BUN Creatinine Glucose POC Glucose 212 H 157 H 204 H Hemoglobin A1c Lactic Acid Calcium Magnesium Ferritin Total Bilirubin AST ALT Alkaline Phosphatase Lactate Dehydrogenase Total Creatine Kinase C-Reactive Protein Total Protein Albumin Triglycerides Arterial Blood Glucose Arterial Blood Ionized Calcium Ur Specific [place] Vancomycin Trough Coronavirus (PCR) 12/06/20 12/06/2021 04:31 04:31 05:12 WBC 17.0 H RBC 3.63 L Hgb 10.8 L D Hct 32.6 L D RDW Plt Count Lymph % (Auto) [place] % (Auto) Lymph # (Auto) [place] # (Auto) Baso # (Auto) Seg Neutrophils % Seg Neuts % (Manual) Lymphocytes % (Manual) Seg Neutrophils # Seg Neutrophils # Man Lymphocytes # (Manual) D-Dimer ABG pH POC ABG pCO2 85.9 H POC ABG pO2 57.6 L ABG pO2 ABG HCO3 ABG O2 Saturation ABG Base Excess ABG Hemoglobin ABG Oxyhemoglobin ABG Sodium 131.2 L ABG Potassium 4.8 H ABG Chloride 86.0 L ABG Glucose 200 H Oxyhemoglobin Carboxyhemoglobin Sodium 134 L Potassium 5.1 H Chloride 88.4 L Carbon Dioxide 47 H* BUN 23 H Creatinine 0.3 L Glucose 206 H POC Glucose Hemoglobin A1c Lactic Acid Calcium 8.3 L Magnesium Ferritin Total Bilirubin AST 48 H ALT 91 H Alkaline Phosphatase 140 H Lactate Dehydrogenase Total Creatine Kinase C-Reactive Protein Total Protein 5.7 L Albumin 2.6 L Triglycerides Arterial Blood Glucose 200 H Arterial Blood Ionized Calcium 4.4 L Ur Specific [place] Vancomycin Trough Coronavirus (PCR) 12/06/20 12/06/20 12/06/20 05:24 12:18 16:45 WBC RBC Hgb Hct RDW Plt Count Lymph % (Auto) [place] % (Auto) Lymph # (Auto) [place] # (Auto) Baso # (Auto) Seg Neutrophils % Seg Neuts % (Manual) Lymphocytes % (Manual) Seg Neutrophils # Seg Neutrophils # Man Lymphocytes # (Manual) D-Dimer ABG pH POC ABG pCO2 POC ABG pO2 ABG pO2 ABG HCO3 ABG O2 Saturation ABG Base Excess ABG Hemoglobin ABG Oxyhemoglobin ABG Sodium ABG Potassium ABG Chloride ABG Glucose Oxyhemoglobin Carboxyhemoglobin Sodium Potassium Chloride Carbon Dioxide BUN Creatinine Glucose POC Glucose 186 H 187 H 150 H Hemoglobin A1c Lactic Acid Calcium Magnesium Ferritin Total Bilirubin AST ALT Alkaline Phosphatase Lactate Dehydrogenase Total Creatine Kinase C-Reactive Protein Total Protein Albumin Triglycerides Arterial Blood Glucose Arterial Blood Ionized Calcium Ur Specific [place] Vancomycin Trough Coronavirus (PCR) 12/06/20 12/07/20 12/07/20 23:43 05:20 05:21 WBC RBC Hgb Hct RDW Plt Count Lymph % (Auto) [place] % (Auto) Lymph # (Auto) [place] # (Auto) Baso # (Auto) Seg Neutrophils % Seg Neuts % (Manual) Lymphocytes % (Manual) Seg Neutrophils # Seg Neutrophils # Man Lymphocytes # (Manual) D-Dimer ABG pH POC ABG pCO2 POC ABG pO2 ABG pO2 48.4 L ABG HCO3 50.8 H ABG O2 Saturation 86.2 L ABG Base Excess 22.4 H ABG Hemoglobin 11.0 L ABG Oxyhemoglobin ABG Sodium ABG Potassium ABG Chloride ABG Glucose Oxyhemoglobin 84.0 L Carboxyhemoglobin Sodium Potassium Chloride Carbon Dioxide BUN Creatinine Glucose POC Glucose 153 H 107 H Hemoglobin A1c Lactic Acid Calcium Magnesium Ferritin Total Bilirubin AST ALT Alkaline Phosphatase Lactate Dehydrogenase Total Creatine Kinase C-Reactive Protein Total Protein Albumin Triglycerides Arterial Blood Glucose Arterial Blood Ionized Calcium Ur Specific [place] Vancomycin Trough Coronavirus (PCR) 12/07/20 12/07/20 12/07/20 13:20 14:28 17:35 WBC RBC Hgb Hct RDW Plt Count Lymph % (Auto) [place] % (Auto) Lymph # (Auto) [place] # (Auto) Baso # (Auto) Seg Neutrophils % Seg Neuts % (Manual) Lymphocytes % (Manual) Seg Neutrophils # Seg Neutrophils # Man Lymphocytes # (Manual) D-Dimer ABG pH POC ABG pCO2 74.1 H POC ABG pO2 68.5 L ABG pO2 ABG HCO3 ABG O2 Saturation ABG Base Excess ABG Hemoglobin 10.7 L ABG Oxyhemoglobin 91.9 L ABG Sodium 132.2 L ABG Potassium 4.7 H ABG Chloride 88.0 L ABG Glucose 138 H Oxyhemoglobin Carboxyhemoglobin Sodium 134 L Potassium Chloride 87.4 L Carbon Dioxide 49 H* BUN Creatinine 0.2 L Glucose 132 H POC Glucose 176 H Hemoglobin A1c Lactic Acid Calcium 7.7 L Magnesium Ferritin Total Bilirubin AST ALT Alkaline Phosphatase Lactate Dehydrogenase Total Creatine Kinase C-Reactive Protein Total Protein Albumin Triglycerides Arterial Blood Glucose 138 H Arterial Blood Ionized Calcium 4.0 L Ur Specific [place] Vancomycin Trough Coronavirus (PCR) 12/07/20 12/08/20 12/08/20 23:44 04:12 05:29 WBC RBC Hgb Hct RDW Plt Count Lymph % (Auto) [place] % (Auto) Lymph # (Auto) [place] # (Auto) Baso # (Auto) Seg Neutrophils % Seg Neuts % (Manual) Lymphocytes % (Manual) Seg Neutrophils # Seg Neutrophils # Man Lymphocytes # (Manual) D-Dimer ABG pH POC ABG pCO2 POC ABG pO2 ABG pO2 69.7 L ABG HCO3 50.1 H ABG O2 Saturation ABG Base Excess 21.6 H ABG Hemoglobin 10.9 L ABG Oxyhemoglobin ABG Sodium ABG Potassium ABG Chloride ABG Glucose Oxyhemoglobin 93.2 L Carboxyhemoglobin Sodium Potassium Chloride Carbon Dioxide BUN Creatinine Glucose POC Glucose 143 H 143 H Hemoglobin A1c Lactic Acid Calcium Magnesium Ferritin Total Bilirubin AST ALT Alkaline Phosphatase Lactate Dehydrogenase Total Creatine Kinase C-Reactive Protein Total Protein Albumin Triglycerides Arterial Blood Glucose Arterial Blood Ionized Calcium Ur Specific [place] Vancomycin Trough Coronavirus (PCR) 12/08/20 12/08/20 12/09/20 06:10 06:10 04:24 WBC 12.0 H RBC 3.18 L Hgb 9.5 L Hct 28.9 L RDW Plt Count Lymph % (Auto) [place] % (Auto) Lymph # (Auto) [place] # (Auto) Baso # (Auto) Seg Neutrophils % Seg Neuts % (Manual) 95.0 H Lymphocytes % (Manual) 3.0 L Seg Neutrophils # Seg Neutrophils # Man 11.4 H Lymphocytes # (Manual) 0.4 L D-Dimer ABG pH POC ABG pCO2 76.2 H POC ABG pO2 52.8 L ABG pO2 ABG HCO3 ABG O2 Saturation ABG Base Excess ABG Hemoglobin 11.7 L ABG Oxyhemoglobin ABG Sodium 132.0 L ABG Potassium ABG Chloride 87.0 L ABG Glucose 118 H Oxyhemoglobin Carboxyhemoglobin Sodium 133 L Potassium Chloride 86.3 L Carbon Dioxide 53 H* BUN Creatinine 0.2 L Glucose 156 H POC Glucose Hemoglobin A1c Lactic Acid Calcium 7.6 L Magnesium Ferritin Total Bilirubin AST ALT Alkaline Phosphatase Lactate Dehydrogenase Total Creatine Kinase C-Reactive Protein Total Protein Albumin Triglycerides Arterial Blood Glucose 118 H Arterial Blood Ionized Calcium 4.2 L Ur Specific [place] Vancomycin Trough Coronavirus (PCR) 12/09/20 12/09/20 12/09/20 05:44 06:40 06:40 WBC 13.5 H RBC 3.28 L Hgb 9.7 L Hct 29.9 L RDW Plt Count Lymph % (Auto) [place] % (Auto) Lymph # (Auto) [place] # (Auto) Baso # (Auto) Seg Neutrophils % Seg Neuts % (Manual) Lymphocytes % (Manual) Seg Neutrophils # Seg Neutrophils # Man Lymphocytes # (Manual) D-Dimer ABG pH POC ABG pCO2 POC ABG pO2 ABG pO2 ABG HCO3 ABG O2 Saturation ABG Base Excess ABG Hemoglobin ABG Oxyhemoglobin ABG Sodium ABG Potassium ABG Chloride ABG Glucose Oxyhemoglobin Carboxyhemoglobin Sodium 135 L Potassium Chloride 89.5 L Carbon Dioxide 52 H* BUN Creatinine 0.3 L Glucose 114 H POC Glucose 117 H Hemoglobin A1c Lactic Acid Calcium 7.6 L Magnesium Ferritin Total Bilirubin AST ALT Alkaline Phosphatase Lactate Dehydrogenase Total Creatine Kinase C-Reactive Protein Total Protein Albumin Triglycerides Arterial Blood Glucose Arterial Blood Ionized Calcium Ur Specific [place] Vancomycin Trough Coronavirus (PCR) 12/09/20 12/09/20 12/10/20 16:42 21:11 04:28 WBC RBC Hgb Hct RDW Plt Count Lymph % (Auto) [place] % (Auto) Lymph # (Auto) [place] # (Auto) Baso # (Auto) Seg Neutrophils % Seg Neuts % (Manual) Lymphocytes % (Manual) Seg Neutrophils # Seg Neutrophils # Man Lymphocytes # (Manual) D-Dimer ABG pH POC ABG pCO2 72.5 H 69.4 H 76.9 H POC ABG pO2 50.4 L 80.6 L 60.2 L ABG pO2 ABG HCO3 ABG O2 Saturation ABG Base Excess ABG Hemoglobin 10.4 L 10.7 L 10 L ABG Oxyhemoglobin 84.3 L 89.7 L ABG Sodium 133.7 L 133.7 L 133.8 L ABG Potassium ABG Chloride 90.0 L 91.0 L 91.0 L ABG Glucose 116 H 96 H 57 L Oxyhemoglobin Carboxyhemoglobin 0.4 L Sodium Potassium Chloride Carbon Dioxide BUN Creatinine Glucose POC Glucose Hemoglobin A1c Lactic Acid Calcium Magnesium Ferritin Total Bilirubin AST ALT Alkaline Phosphatase Lactate Dehydrogenase Total Creatine Kinase C-Reactive Protein Total Protein Albumin Triglycerides Arterial Blood Glucose 116 H 96 H 57 L Arterial Blood Ionized Calcium 4.2 L 4.3 L 4.2 L Ur Specific [place] Vancomycin Trough Coronavirus (PCR) 12/10/20 12/10/20 12/10/20 05:09 05:41 11:50 WBC RBC Hgb Hct RDW Plt Count Lymph % (Auto) [place] % (Auto) Lymph # (Auto) [place] # (Auto) Baso # (Auto) Seg Neutrophils % Seg Neuts % (Manual) Lymphocytes % (Manual) Seg Neutrophils # Seg Neutrophils # Man Lymphocytes # (Manual) D-Dimer ABG pH POC ABG pCO2 POC ABG pO2 ABG pO2 ABG HCO3 ABG O2 Saturation ABG Base Excess ABG Hemoglobin ABG Oxyhemoglobin ABG Sodium ABG Potassium ABG Chloride ABG Glucose Oxyhemoglobin Carboxyhemoglobin Sodium Potassium Chloride Carbon Dioxide BUN Creatinine Glucose POC Glucose 41 L 138 H 106 H Hemoglobin A1c Lactic Acid Calcium Magnesium Ferritin Total Bilirubin AST ALT Alkaline Phosphatase Lactate Dehydrogenase Total Creatine Kinase C-Reactive Protein Total Protein Albumin Triglycerides Arterial Blood Glucose Arterial Blood Ionized Calcium Ur Specific [place] Vancomycin Trough Coronavirus (PCR) 12/10/20 12/10/20 12/11/20 17:34 23:25 04:06 WBC RBC Hgb Hct RDW Plt Count Lymph % (Auto) [place] % (Auto) Lymph # (Auto) [place] # (Auto) Baso # (Auto) Seg Neutrophils % Seg Neuts % (Manual) Lymphocytes % (Manual) Seg Neutrophils # Seg Neutrophils # Man Lymphocytes # (Manual) D-Dimer ABG pH POC ABG pCO2 71.0 H POC ABG pO2 56.8 L ABG pO2 ABG HCO3 ABG O2 Saturation ABG Base Excess ABG Hemoglobin 10.1 L ABG Oxyhemoglobin 88.5 L ABG Sodium 132.3 L ABG Potassium ABG Chloride 91.0 L ABG Glucose 168 H Oxyhemoglobin Carboxyhemoglobin Sodium Potassium Chloride Carbon Dioxide BUN Creatinine Glucose POC Glucose 121 H 167 H Hemoglobin A1c Lactic Acid Calcium Magnesium Ferritin Total Bilirubin AST ALT Alkaline Phosphatase Lactate Dehydrogenase Total Creatine Kinase C-Reactive Protein Total Protein Albumin Triglycerides Arterial Blood Glucose 168 H Arterial Blood Ionized Calcium 4.1 L Ur Specific [place] Vancomycin Trough Coronavirus (PCR) 12/11/20 12/11/20 12/11/20 05:21 11:44 15:40 WBC RBC Hgb Hct RDW Plt Count Lymph % (Auto) [place] % (Auto) Lymph # (Auto) [place] # (Auto) Baso # (Auto) Seg Neutrophils % Seg Neuts % (Manual) Lymphocytes % (Manual) Seg Neutrophils # Seg Neutrophils # Man Lymphocytes # (Manual) D-Dimer ABG pH 7.454 H POC ABG pCO2 58.6 H POC ABG pO2 50.7 L ABG pO2 ABG HCO3 ABG O2 Saturation ABG Base Excess ABG Hemoglobin 10.1 L ABG Oxyhemoglobin 86.2 L ABG Sodium 131.2 L ABG Potassium ABG Chloride 92.0 L ABG Glucose 197 H Oxyhemoglobin Carboxyhemoglobin Sodium Potassium Chloride Carbon Dioxide BUN Creatinine Glucose POC Glucose 149 H 202 H Hemoglobin A1c Lactic Acid Calcium Magnesium Ferritin Total Bilirubin AST ALT Alkaline Phosphatase Lactate Dehydrogenase Total Creatine Kinase C-Reactive Protein Total Protein Albumin Triglycerides Arterial Blood Glucose 197 H Arterial Blood Ionized Calcium 4.2 L Ur Specific [place] Vancomycin Trough Coronavirus (PCR) 12/11/20 12/11/20 12/12/20 17:09 23:16 05:09 WBC RBC Hgb Hct RDW Plt Count Lymph % (Auto) [place] % (Auto) Lymph # (Auto) [place] # (Auto) Baso # (Auto) Seg Neutrophils % Seg Neuts % (Manual) Lymphocytes % (Manual) Seg Neutrophils # Seg Neutrophils # Man Lymphocytes # (Manual) D-Dimer ABG pH POC ABG pCO2 63.1 H POC ABG pO2 62.6 L ABG pO2 ABG HCO3 ABG O2 Saturation ABG Base Excess ABG Hemoglobin 10.3 L ABG Oxyhemoglobin ABG Sodium 130.3 L ABG Potassium 4.6 H ABG Chloride 92.0 L ABG Glucose 215 H Oxyhemoglobin Carboxyhemoglobin Sodium Potassium Chloride Carbon Dioxide BUN Creatinine Glucose POC Glucose 181 H 192 H Hemoglobin A1c Lactic Acid Calcium Magnesium Ferritin Total Bilirubin AST ALT Alkaline Phosphatase Lactate Dehydrogenase Total Creatine Kinase C-Reactive Protein Total Protein Albumin Triglycerides Arterial Blood Glucose 215 H Arterial Blood Ionized Calcium 4.4 L Ur Specific [place] Vancomycin Trough Coronavirus (PCR) 12/12/20 12/12/20 12/12/20 05:16 05:47 11:41 WBC RBC Hgb Hct RDW Plt Count Lymph % (Auto) [place] % (Auto) Lymph # (Auto) [place] # (Auto) Baso # (Auto) Seg Neutrophils % Seg Neuts % (Manual) Lymphocytes % (Manual) Seg Neutrophils # Seg Neutrophils # Man Lymphocytes # (Manual) D-Dimer ABG pH POC ABG pCO2 POC ABG pO2 ABG pO2 ABG HCO3 ABG O2 Saturation ABG Base Excess ABG Hemoglobin ABG Oxyhemoglobin ABG Sodium ABG Potassium ABG Chloride ABG Glucose Oxyhemoglobin Carboxyhemoglobin Sodium Potassium Chloride Carbon Dioxide BUN Creatinine Glucose POC Glucose 208 H 218 H Hemoglobin A1c Lactic Acid Calcium Magnesium Ferritin Total Bilirubin AST ALT Alkaline Phosphatase Lactate Dehydrogenase Total Creatine Kinase C-Reactive Protein Total Protein Albumin Triglycerides 150 H Arterial Blood Glucose Arterial Blood Ionized Calcium Ur Specific [place] Vancomycin Trough Coronavirus (PCR) 12/12/20 12/12/20 12/13/20 17:05 23:18 03:36 WBC RBC Hgb Hct RDW Plt Count Lymph % (Auto) [place] % (Auto) Lymph # (Auto) [place] # (Auto) Baso # (Auto) Seg Neutrophils % Seg Neuts % (Manual) Lymphocytes % (Manual) Seg Neutrophils # Seg Neutrophils # Man Lymphocytes # (Manual) D-Dimer ABG pH POC ABG pCO2 61.5 H POC ABG pO2 77.6 L ABG pO2 ABG HCO3 ABG O2 Saturation ABG Base Excess ABG Hemoglobin 10.2 L ABG Oxyhemoglobin ABG Sodium 127.5 L ABG Potassium ABG Chloride 91.0 L ABG Glucose 232 H Oxyhemoglobin Carboxyhemoglobin Sodium Potassium Chloride Carbon Dioxide BUN Creatinine Glucose POC Glucose 187 H 176 H Hemoglobin A1c Lactic Acid Calcium Magnesium Ferritin Total Bilirubin AST ALT Alkaline Phosphatase Lactate Dehydrogenase Total Creatine Kinase C-Reactive Protein Total Protein Albumin Triglycerides Arterial Blood Glucose 232 H Arterial Blood Ionized Calcium 4.2 L Ur Specific [place] Vancomycin Trough Coronavirus (PCR) 12/13/20 12/13/20 12/13/20 05:13 10:00 11:30 WBC RBC 3.50 L Hgb 10.5 L Hct 31.9 L RDW Plt Count Lymph % (Auto) [place] % (Auto) Lymph # (Auto) [place] # (Auto) Baso # (Auto) Seg Neutrophils % Seg Neuts % (Manual) 96.0 H Lymphocytes % (Manual) Seg Neutrophils # Seg Neutrophils # Man 9.2 H Lymphocytes # (Manual) 0.0 L D-Dimer ABG pH POC ABG pCO2 POC ABG pO2 ABG pO2 ABG HCO3 ABG O2 Saturation ABG Base Excess ABG Hemoglobin ABG Oxyhemoglobin ABG Sodium ABG Potassium ABG Chloride ABG Glucose Oxyhemoglobin Carboxyhemoglobin Sodium Potassium Chloride Carbon Dioxide BUN Creatinine Glucose POC Glucose 204 H Hemoglobin A1c Lactic Acid Calcium Magnesium Ferritin Total Bilirubin AST ALT Alkaline Phosphatase Lactate Dehydrogenase Total Creatine Kinase C-Reactive Protein Total Protein Albumin Triglycerides Arterial Blood Glucose Arterial Blood Ionized Calcium Ur Specific [place] Vancomycin Trough Coronavirus (PCR) Positive A 12/13/20 12/13/20 12/13/20 11:30 12:01 18:04 WBC RBC Hgb Hct RDW Plt Count Lymph % (Auto) [place] % (Auto) Lymph # (Auto) [place] # (Auto) Baso # (Auto) Seg Neutrophils % Seg Neuts % (Manual) Lymphocytes % (Manual) Seg Neutrophils # Seg Neutrophils # Man Lymphocytes # (Manual) D-Dimer ABG pH POC ABG pCO2 POC ABG pO2 ABG pO2 ABG HCO3 ABG O2 Saturation ABG Base Excess ABG Hemoglobin ABG Oxyhemoglobin ABG Sodium ABG Potassium ABG Chloride ABG Glucose Oxyhemoglobin Carboxyhemoglobin Sodium 132 L Potassium Chloride 90.1 L Carbon Dioxide 41 H* D BUN Creatinine 0.2 L Glucose 249 H POC Glucose 224 H 172 H Hemoglobin A1c Lactic Acid Calcium 7.4 L Magnesium Ferritin Total Bilirubin AST ALT 61 H Alkaline Phosphatase Lactate Dehydrogenase Total Creatine Kinase C-Reactive Protein Total Protein 5.7 L Albumin 2.3 L Triglycerides Arterial Blood Glucose Arterial Blood Ionized Calcium Ur Specific [place] Vancomycin Trough Coronavirus (PCR) 12/13/20 12/14/20 12/14/20 23:37 04:05 04:35 WBC RBC 3.37 L Hgb 10.1 L Hct 30.7 L RDW 15.4 H Plt Count Lymph % (Auto) [place] % (Auto) Lymph # (Auto) [place] # (Auto) Baso # (Auto) Seg Neutrophils % Seg Neuts % (Manual) 93.0 H Lymphocytes % (Manual) 3.0 L Seg Neutrophils # Seg Neutrophils # Man 7.8 H Lymphocytes # (Manual) 0.3 L D-Dimer ABG pH POC ABG pCO2 72.2 H POC ABG pO2 61.5 L ABG pO2 ABG HCO3 ABG O2 Saturation ABG Base Excess ABG Hemoglobin ABG Oxyhemoglobin 89.9 L ABG Sodium 131.4 L ABG Potassium ABG Chloride 91.0 L ABG Glucose 205 H Oxyhemoglobin Carboxyhemoglobin Sodium Potassium Chloride Carbon Dioxide BUN Creatinine Glucose POC Glucose 200 H Hemoglobin A1c Lactic Acid Calcium Magnesium Ferritin Total Bilirubin AST ALT Alkaline Phosphatase Lactate Dehydrogenase Total Creatine Kinase C-Reactive Protein Total Protein Albumin Triglycerides Arterial Blood Glucose 205 H Arterial Blood Ionized Calcium 4.3 L Ur Specific [place] Vancomycin Trough Coronavirus (PCR) 12/14/20 12/14/20 12/14/20 04:35 05:12 11:31 WBC RBC Hgb Hct RDW Plt Count Lymph % (Auto) [place] % (Auto) Lymph # (Auto) [place] # (Auto) Baso # (Auto) Seg Neutrophils % Seg Neuts % (Manual) Lymphocytes % (Manual) Seg Neutrophils # Seg Neutrophils # Man Lymphocytes # (Manual) D-Dimer ABG pH POC ABG pCO2 POC ABG pO2 ABG pO2 ABG HCO3 ABG O2 Saturation ABG Base Excess ABG Hemoglobin ABG Oxyhemoglobin ABG Sodium ABG Potassium ABG Chloride ABG Glucose Oxyhemoglobin Carboxyhemoglobin Sodium 135 L Potassium Chloride 92.5 L Carbon Dioxide 38 H BUN Creatinine 0.2 L Glucose 184 H POC Glucose 176 H 212 H Hemoglobin A1c Lactic Acid Calcium 7.7 L Magnesium Ferritin Total Bilirubin AST ALT Alkaline Phosphatase Lactate Dehydrogenase Total Creatine Kinase C-Reactive Protein Total Protein Albumin Triglycerides Arterial Blood Glucose Arterial Blood Ionized Calcium Ur Specific [place] Vancomycin Trough Coronavirus (PCR) 12/14/20 12/14/20 12/15/20 17:30 23:30 03:19 WBC RBC Hgb Hct RDW Plt Count Lymph % (Auto) [place] % (Auto) Lymph # (Auto) [place] # (Auto) Baso # (Auto) Seg Neutrophils % Seg Neuts % (Manual) Lymphocytes % (Manual) Seg Neutrophils # Seg Neutrophils # Man Lymphocytes # (Manual) D-Dimer ABG pH POC ABG pCO2 62.0 H POC ABG pO2 66.0 L ABG pO2 ABG HCO3 ABG O2 Saturation ABG Base Excess ABG Hemoglobin 10.3 L ABG Oxyhemoglobin ABG Sodium 130.5 L ABG Potassium ABG Chloride 91.0 L ABG Glucose 166 H Oxyhemoglobin Carboxyhemoglobin Sodium Potassium Chloride Carbon Dioxide BUN Creatinine Glucose POC Glucose 222 H 176 H Hemoglobin A1c Lactic Acid Calcium Magnesium Ferritin Total Bilirubin AST ALT Alkaline Phosphatase Lactate Dehydrogenase Total Creatine Kinase C-Reactive Protein Total Protein Albumin Triglycerides Arterial Blood Glucose 166 H Arterial Blood Ionized Calcium 4.4 L Ur Specific [place] Vancomycin Trough Coronavirus (PCR) 12/15/20 12/15/20 12/15/20 05:24 11:39 17:30 WBC RBC Hgb Hct RDW Plt Count Lymph % (Auto) [place] % (Auto) Lymph # (Auto) [place] # (Auto) Baso # (Auto) Seg Neutrophils % Seg Neuts % (Manual) Lymphocytes % (Manual) Seg Neutrophils # Seg Neutrophils # Man Lymphocytes # (Manual) D-Dimer ABG pH POC ABG pCO2 POC ABG pO2 ABG pO2 ABG HCO3 ABG O2 Saturation ABG Base Excess ABG Hemoglobin ABG Oxyhemoglobin ABG Sodium ABG Potassium ABG Chloride ABG Glucose Oxyhemoglobin Carboxyhemoglobin Sodium Potassium Chloride Carbon Dioxide BUN Creatinine Glucose POC Glucose 160 H 140 H 246 H Hemoglobin A1c Lactic Acid Calcium Magnesium Ferritin Total Bilirubin AST ALT Alkaline Phosphatase Lactate Dehydrogenase Total Creatine Kinase C-Reactive Protein Total Protein Albumin Triglycerides Arterial Blood Glucose Arterial Blood Ionized Calcium Ur Specific [place] Vancomycin Trough Coronavirus (PCR) 12/15/20 12/16/20 12/16/20 23:42 03:54 04:46 WBC RBC 3.48 L Hgb 10.6 L Hct 31.5 L RDW 15.8 H Plt Count Lymph % (Auto) [place] % (Auto) Lymph # (Auto) [place] # (Auto) Baso # (Auto) Seg Neutrophils % Seg Neuts % (Manual) Lymphocytes % (Manual) Seg Neutrophils # Seg Neutrophils # Man Lymphocytes # (Manual) D-Dimer ABG pH POC ABG pCO2 63.6 H POC ABG pO2 55.0 L ABG pO2 ABG HCO3 ABG O2 Saturation ABG Base Excess ABG Hemoglobin 11.1 L ABG Oxyhemoglobin 87.3 L ABG Sodium 130.7 L ABG Potassium ABG Chloride 89.0 L ABG Glucose 211 H Oxyhemoglobin Carboxyhemoglobin Sodium Potassium Chloride Carbon Dioxide BUN Creatinine Glucose POC Glucose 139 H Hemoglobin A1c Lactic Acid Calcium Magnesium Ferritin Total Bilirubin AST ALT Alkaline Phosphatase Lactate Dehydrogenase Total Creatine Kinase C-Reactive Protein Total Protein Albumin Triglycerides Arterial Blood Glucose 211 H Arterial Blood Ionized Calcium 4.3 L Ur Specific [place] Vancomycin Trough Coronavirus (PCR) 12/16/20 12/16/20 12/16/20 04:46 05:34 11:40 WBC RBC Hgb Hct RDW Plt Count Lymph % (Auto) [place] % (Auto) Lymph # (Auto) [place] # (Auto) Baso # (Auto) Seg Neutrophils % Seg Neuts % (Manual) Lymphocytes % (Manual) Seg Neutrophils # Seg Neutrophils # Man Lymphocytes # (Manual) D-Dimer ABG pH POC ABG pCO2 POC ABG pO2 ABG pO2 ABG HCO3 ABG O2 Saturation ABG Base Excess ABG Hemoglobin ABG Oxyhemoglobin ABG Sodium ABG Potassium ABG Chloride ABG Glucose Oxyhemoglobin Carboxyhemoglobin Sodium 134 L Potassium Chloride 89.7 L Carbon Dioxide 38 H BUN Creatinine < 0.2 L Glucose 203 H POC Glucose 155 H 239 H Hemoglobin A1c Lactic Acid Calcium 7.5 L Magnesium Ferritin Total Bilirubin AST ALT Alkaline Phosphatase Lactate Dehydrogenase Total Creatine Kinase C-Reactive Protein Total Protein Albumin Triglycerides Arterial Blood Glucose Arterial Blood Ionized Calcium Ur Specific [place] Vancomycin Trough Coronavirus (PCR) 12/16/20 12/16/20 12/17/20 17:42 23:45 03:59 WBC RBC Hgb Hct RDW Plt Count Lymph % (Auto) [place] % (Auto) Lymph # (Auto) [place] # (Auto) Baso # (Auto) Seg Neutrophils % Seg Neuts % (Manual) Lymphocytes % (Manual) Seg Neutrophils # Seg Neutrophils # Man Lymphocytes # (Manual) D-Dimer ABG pH POC ABG pCO2 71.9 H POC ABG pO2 57.5 L ABG pO2 ABG HCO3 ABG O2 Saturation ABG Base Excess ABG Hemoglobin 10.8 L ABG Oxyhemoglobin 87.7 L ABG Sodium 131.5 L ABG Potassium ABG Chloride 90.0 L ABG Glucose 199 H Oxyhemoglobin Carboxyhemoglobin Sodium Potassium Chloride Carbon Dioxide BUN Creatinine Glucose POC Glucose 228 H 187 H Hemoglobin A1c Lactic Acid Calcium Magnesium Ferritin Total Bilirubin AST ALT Alkaline Phosphatase Lactate Dehydrogenase Total Creatine Kinase C-Reactive Protein Total Protein Albumin Triglycerides Arterial Blood Glucose 199 H Arterial Blood Ionized Calcium 4.4 L Ur Specific [place] Vancomycin Trough Coronavirus (PCR) 12/17/20 12/17/20 12/17/20 05:35 11:55 17:25 WBC RBC Hgb Hct RDW Plt Count Lymph % (Auto) [place] % (Auto) Lymph # (Auto) [place] # (Auto) Baso # (Auto) Seg Neutrophils % Seg Neuts % (Manual) Lymphocytes % (Manual) Seg Neutrophils # Seg Neutrophils # Man Lymphocytes # (Manual) D-Dimer ABG pH POC ABG pCO2 POC ABG pO2 ABG pO2 ABG HCO3 ABG O2 Saturation ABG Base Excess ABG Hemoglobin ABG Oxyhemoglobin ABG Sodium ABG Potassium ABG Chloride ABG Glucose Oxyhemoglobin Carboxyhemoglobin Sodium 134 L Potassium Chloride 89.6 L Carbon Dioxide 44 H* BUN Creatinine 0.2 L Glucose 280 H POC Glucose 159 H 181 H Hemoglobin A1c Lactic Acid Calcium 8.0 L Magnesium 1.60 L Ferritin Total Bilirubin AST ALT Alkaline Phosphatase Lactate Dehydrogenase Total Creatine Kinase C-Reactive Protein Total Protein 6.2 L Albumin 2.1 L Triglycerides Arterial Blood Glucose Arterial Blood Ionized Calcium Ur Specific [place] Vancomycin Trough Coronavirus (PCR) 12/17/20 12/17/20 12/18/20 17:25 17:51 00:12 WBC RBC Hgb Hct RDW Plt Count Lymph % (Auto) [place] % (Auto) Lymph # (Auto) [place] # (Auto) Baso # (Auto) Seg Neutrophils % Seg Neuts % (Manual) Lymphocytes % (Manual) Seg Neutrophils # Seg Neutrophils # Man Lymphocytes # (Manual) D-Dimer ABG pH POC ABG pCO2 POC ABG pO2 ABG pO2 ABG HCO3 ABG O2 Saturation ABG Base Excess ABG Hemoglobin ABG Oxyhemoglobin ABG Sodium ABG Potassium ABG Chloride ABG Glucose Oxyhemoglobin Carboxyhemoglobin Sodium Potassium Chloride Carbon Dioxide BUN Creatinine Glucose POC Glucose 260 H 197 H Hemoglobin A1c Lactic Acid Calcium Magnesium Ferritin Total Bilirubin AST ALT Alkaline Phosphatase Lactate Dehydrogenase Total Creatine Kinase 47 L C-Reactive Protein Total Protein Albumin Triglycerides Arterial Blood Glucose Arterial Blood Ionized Calcium Ur Specific [place] Vancomycin Trough Coronavirus (PCR) 12/18/20 12/18/20 12/18/20 03:56 04:32 04:32 WBC RBC 2.88 L Hgb 8.6 L Hct 26.0 L RDW 15.6 H Plt Count Lymph % (Auto) [place] % (Auto) Lymph # (Auto) [place] # (Auto) Baso # (Auto) Seg Neutrophils % Seg Neuts % (Manual) Lymphocytes % (Manual) Seg Neutrophils # Seg Neutrophils # Man Lymphocytes # (Manual) D-Dimer ABG pH POC ABG pCO2 78.0 H POC ABG pO2 52.3 L ABG pO2 ABG HCO3 ABG O2 Saturation ABG Base Excess ABG Hemoglobin 11.7 L ABG Oxyhemoglobin 84.9 L ABG Sodium 131.6 L ABG Potassium ABG Chloride 89.0 L ABG Glucose 191 H Oxyhemoglobin Carboxyhemoglobin Sodium 134 L Potassium Chloride 89.5 L Carbon Dioxide 43 H* BUN Creatinine < 0.2 L Glucose 182 H POC Glucose Hemoglobin A1c Lactic Acid Calcium 8.1 L Magnesium Ferritin Total Bilirubin AST ALT Alkaline Phosphatase Lactate Dehydrogenase Total Creatine Kinase C-Reactive Protein Total Protein Albumin Triglycerides Arterial Blood Glucose 191 H Arterial Blood Ionized Calcium 4.4 L Ur Specific [place] Vancomycin Trough Coronavirus (PCR) 12/18/20 12/18/20 12/18/20 05:19 08:27 11:37 WBC RBC Hgb Hct RDW Plt Count Lymph % (Auto) [place] % (Auto) Lymph # (Auto) [place] # (Auto) Baso # (Auto) Seg Neutrophils % Seg Neuts % (Manual) Lymphocytes % (Manual) Seg Neutrophils # Seg Neutrophils # Man Lymphocytes # (Manual) D-Dimer ABG pH POC ABG pCO2 POC ABG pO2 ABG pO2 ABG HCO3 ABG O2 Saturation ABG Base Excess ABG Hemoglobin ABG Oxyhemoglobin ABG Sodium ABG Potassium ABG Chloride ABG Glucose Oxyhemoglobin Carboxyhemoglobin Sodium 131 L Potassium Chloride 89.0 L Carbon Dioxide 41 H* BUN Creatinine < 0.2 L Glucose 176 H POC Glucose 165 H 174 H Hemoglobin A1c Lactic Acid Calcium 7.5 L Magnesium Ferritin Total Bilirubin AST ALT Alkaline Phosphatase Lactate Dehydrogenase Total Creatine Kinase C-Reactive Protein Total Protein Albumin Triglycerides Arterial Blood Glucose Arterial Blood Ionized Calcium Ur Specific [place] Vancomycin Trough Coronavirus (PCR) 12/18/20 12/18/20 12/19/20 17:26 23:19 03:41 WBC RBC Hgb Hct RDW Plt Count Lymph % (Auto) [place] % (Auto) Lymph # (Auto) [place] # (Auto) Baso # (Auto) Seg Neutrophils % Seg Neuts % (Manual) Lymphocytes % (Manual) Seg Neutrophils # Seg Neutrophils # Man Lymphocytes # (Manual) D-Dimer ABG pH POC ABG pCO2 75.4 H POC ABG pO2 50.7 L ABG pO2 ABG HCO3 ABG O2 Saturation ABG Base Excess ABG Hemoglobin 10.4 L ABG Oxyhemoglobin 84.2 L ABG Sodium 131.1 L ABG Potassium ABG Chloride 89.0 L ABG Glucose 194 H Oxyhemoglobin Carboxyhemoglobin 1.6 H Sodium Potassium Chloride Carbon Dioxide BUN Creatinine Glucose POC Glucose 243 H 212 H Hemoglobin A1c Lactic Acid Calcium Magnesium Ferritin Total Bilirubin AST ALT Alkaline Phosphatase Lactate Dehydrogenase Total Creatine Kinase C-Reactive Protein Total Protein Albumin Triglycerides Arterial Blood Glucose 194 H Arterial Blood Ionized Calcium 4.3 L Ur Specific [place] Vancomycin Trough Coronavirus (PCR) 12/19/20 12/19/20 12/19/20 05:26 11:56 18:17 WBC RBC Hgb Hct RDW Plt Count Lymph % (Auto) [place] % (Auto) Lymph # (Auto) [place] # (Auto) Baso # (Auto) Seg Neutrophils % Seg Neuts % (Manual) Lymphocytes % (Manual) Seg Neutrophils # Seg Neutrophils # Man Lymphocytes # (Manual) D-Dimer ABG pH POC ABG pCO2 POC ABG pO2 ABG pO2 ABG HCO3 ABG O2 Saturation ABG Base Excess ABG Hemoglobin ABG Oxyhemoglobin ABG Sodium ABG Potassium ABG Chloride ABG Glucose Oxyhemoglobin Carboxyhemoglobin Sodium Potassium Chloride Carbon Dioxide BUN Creatinine Glucose POC Glucose 166 H 173 H 212 H Hemoglobin A1c Lactic Acid Calcium Magnesium Ferritin Total Bilirubin AST ALT Alkaline Phosphatase Lactate Dehydrogenase Total Creatine Kinase C-Reactive Protein Total Protein Albumin Triglycerides Arterial Blood Glucose Arterial Blood Ionized Calcium Ur Specific [place] Vancomycin Trough Coronavirus (PCR) 12/19/20 12/19/20 12/20/20 23:39 Unknown 03:26 WBC RBC Hgb Hct RDW Plt Count Lymph % (Auto) [place] % (Auto) Lymph # (Auto) [place] # (Auto) Baso # (Auto) Seg Neutrophils % Seg Neuts % (Manual) Lymphocytes % (Manual) Seg Neutrophils # Seg Neutrophils # Man Lymphocytes # (Manual) D-Dimer ABG pH POC ABG pCO2 74.2 H POC ABG pO2 51.3 L ABG pO2 ABG HCO3 ABG O2 Saturation ABG Base Excess ABG Hemoglobin 10.0 L ABG Oxyhemoglobin ABG Sodium 128.9 L ABG Potassium ABG Chloride 87.0 L ABG Glucose 173 H Oxyhemoglobin Carboxyhemoglobin Sodium 133 L Potassium Chloride 89.9 L Carbon Dioxide 39 H BUN Creatinine 0.2 L Glucose 197 H POC Glucose 133 H Hemoglobin A1c Lactic Acid Calcium 7.6 L Magnesium Ferritin Total Bilirubin AST ALT Alkaline Phosphatase Lactate Dehydrogenase Total Creatine Kinase C-Reactive Protein Total Protein Albumin Triglycerides Arterial Blood Glucose 173 H Arterial Blood Ionized Calcium 4.1 L Ur Specific [place] Vancomycin Trough Coronavirus (PCR) 12/20/20 12/20/20 12/20/20 04:00 04:00 05:05 WBC RBC 3.21 L Hgb 9.6 L Hct 29.2 L RDW 15.8 H Plt Count Lymph % (Auto) [place] % (Auto) Lymph # (Auto) [place] # (Auto) Baso # (Auto) Seg Neutrophils % Seg Neuts % (Manual) Lymphocytes % (Manual) Seg Neutrophils # Seg Neutrophils # Man Lymphocytes # (Manual) D-Dimer ABG pH POC ABG pCO2 POC ABG pO2 ABG pO2 ABG HCO3 ABG O2 Saturation ABG Base Excess ABG Hemoglobin ABG Oxyhemoglobin ABG Sodium ABG Potassium ABG Chloride ABG Glucose Oxyhemoglobin Carboxyhemoglobin Sodium 132 L Potassium Chloride 86.0 L Carbon Dioxide 43 H* BUN Creatinine 0.2 L Glucose 193 H POC Glucose 171 H Hemoglobin A1c Lactic Acid Calcium 7.6 L Magnesium Ferritin Total Bilirubin AST ALT Alkaline Phosphatase Lactate Dehydrogenase Total Creatine Kinase C-Reactive Protein Total Protein Albumin Triglycerides Arterial Blood Glucose Arterial Blood Ionized Calcium Ur Specific [place] Vancomycin Trough Coronavirus (PCR) 12/20/20 12/20/20 12/20/20 11:47 18:18 23:41 WBC RBC Hgb Hct RDW Plt Count Lymph % (Auto) [place] % (Auto) Lymph # (Auto) [place] # (Auto) Baso # (Auto) Seg Neutrophils % Seg Neuts % (Manual) Lymphocytes % (Manual) Seg Neutrophils # Seg Neutrophils # Man Lymphocytes # (Manual) D-Dimer ABG pH POC ABG pCO2 POC ABG pO2 ABG pO2 ABG HCO3 ABG O2 Saturation ABG Base Excess ABG Hemoglobin ABG Oxyhemoglobin ABG Sodium ABG Potassium ABG Chloride ABG Glucose Oxyhemoglobin Carboxyhemoglobin Sodium Potassium Chloride Carbon Dioxide BUN Creatinine Glucose POC Glucose 238 H 205 H 167 H Hemoglobin A1c Lactic Acid Calcium Magnesium Ferritin Total Bilirubin AST ALT Alkaline Phosphatase Lactate Dehydrogenase Total Creatine Kinase C-Reactive Protein Total Protein Albumin Triglycerides Arterial Blood Glucose Arterial Blood Ionized Calcium Ur Specific [place] Vancomycin Trough Coronavirus (PCR) 12/21/20 12/21/20 12/21/20 03:30 05:37 09:57 WBC RBC Hgb Hct RDW Plt Count Lymph % (Auto) [place] % (Auto) Lymph # (Auto) [place] # (Auto) Baso # (Auto) Seg Neutrophils % Seg Neuts % (Manual) Lymphocytes % (Manual) Seg Neutrophils # Seg Neutrophils # Man Lymphocytes # (Manual) D-Dimer ABG pH POC ABG pCO2 73.4 H POC ABG pO2 63.0 L ABG pO2 ABG HCO3 ABG O2 Saturation ABG Base Excess ABG Hemoglobin 10.1 L ABG Oxyhemoglobin ABG Sodium 130.5 L ABG Potassium ABG Chloride 89.0 L ABG Glucose 171 H Oxyhemoglobin Carboxyhemoglobin Sodium 132 L Potassium Chloride 87.7 L Carbon Dioxide 42 H* BUN Creatinine 0.2 L Glucose 207 H POC Glucose 152 H Hemoglobin A1c Lactic Acid Calcium 7.7 L Magnesium Ferritin Total Bilirubin AST ALT Alkaline Phosphatase Lactate Dehydrogenase Total Creatine Kinase C-Reactive Protein Total Protein Albumin Triglycerides Arterial Blood Glucose 171 H Arterial Blood Ionized Calcium 4.2 L Ur Specific [place] Vancomycin Trough Coronavirus (PCR)
--- NOTE | 2020-12-21 11:49 | Progress Note ---
Assessment and Plan Cultures: SARS CoV-2 PCR: positive Blood culture: No growth 11/21/2020 tracheal aspirate culture: MRSA 12/09/2020 blood culture: no growth 12/09/2020 sputum culture: Klebsiella 12/17/2020 blood culture: GPC in pairs and chains, coag negative staph 12/17/2020 tracheal aspirate culture: Usual respiratory zachariah A/P: 59-year-old male with: #Shock: on pressors. Febrile, restarted abx on 12/17/2020. #GPC bacteremia: follow up speciation and final susceptibilities. #Bilateral pneumonia: secondary to COVID-19. Completed abx, remdesivir. #Klebsiella on ET aspirate culture: ?colonization v/s true disease, difficult to differentiate. Will treat given development of low-grade temperatures and white count. #B/L pneumothorax and pneumomediastinum: s/p chest tubes. #Acute hypoxic respiratory failure: Remains on the vent. #Elevated d-dimer: DVT scan negative. Was unable to get CTA Chest due to patients unstable clinical status #Transaminitis: secondary to COVID-19. Recs: -continue IV Cefepime + Vancomycin, D5 -repeat blood cultures ordered -f/u blood culture identification and susceptibilities -steroids per pulmonary -very poor prognosis, consider DNR status Dayday Driscoll MD, FACP [facility] ([facility] O: [phone] F: [phone] Subjective Date of service: 12/21/20 Principal diagnosis: COVID-19 Interval history: Intermittent fevers continue. Remains on the vent. Remains on pressors. Objective - Exam Narrative Exam: Physical Exam (reviewed in chart to minimize risk of transmission) Constitutional: deferred Head, Ears, Nose: deferred Eyes: deferred Neck: deferred Oral: deferred Cardiovascular: deferred Respiratory: deferred GI: deferred Musculoskeletal: deferred Skin: deferred Hem/Lymphatic: deferred Psych: deferred Neurological: deferred - Constitutional Vitals: Vital Signs Temp Pulse Resp BP Pulse Ox 99.6 F 114 H 30 H 97/59 96 12/21/20 03:53 12/21/20 11:41 12/21/20 08:30 12/21/20 11:41 12/21/20 11:41 Temperature -Last 24 Hours Temperature 99.6 F Temperature 100.1 F Temperature 99.7 F Temperature 98.6 F Temperature 98.8 F - Labs CBC & Chem 7: 12/20/20 04:00 12/21/20 09:57 Labs: Abnormal lab results 12/20/20 12/20/20 12/20/20 Range/Units 11:47 18:18 23:41 POC ABG pCO2 (32.0-48.0) mmHg POC ABG pO2 (83-108) mmHg ABG Hemoglobin (12.0-17.5) ABG Sodium (136.0-145.0) mmol/L ABG Chloride (98-107) mmol/L ABG Glucose (65-95) mg/dL Sodium (137-145) mmol/L Chloride (98-107) mmol/L Carbon Dioxide (22-30) mmol/L Creatinine (0.8-1.3) mg/dL Glucose (75-100) mg/dL POC Glucose 238 H 205 H 167 H (70-105) mg/dL Calcium (8.4-10.2) mg/dL Arterial Blood Glucose (65-95) mg/dL Arterial Blood Ionized Calcium (4.6-5.3) mg/dL 12/21/20 12/21/20 12/21/20 Range/Units 03:30 05:37 09:57 POC ABG pCO2 73.4 H (32.0-48.0) mmHg POC ABG pO2 63.0 L (83-108) mmHg ABG Hemoglobin 10.1 L (12.0-17.5) ABG Sodium 130.5 L (136.0-145.0) mmol/L ABG Chloride 89.0 L (98-107) mmol/L ABG Glucose 171 H (65-95) mg/dL Sodium 132 L (137-145) mmol/L Chloride 87.7 L (98-107) mmol/L Carbon Dioxide 42 H* (22-30) mmol/L Creatinine 0.2 L (0.8-1.3) mg/dL Glucose 207 H (75-100) mg/dL POC Glucose 152 H (70-105) mg/dL Calcium 7.7 L (8.4-10.2) mg/dL Arterial Blood Glucose 171 H (65-95) mg/dL Arterial Blood Ionized Calcium 4.2 L (4.6-5.3) mg/dL
--- NOTE | 2020-12-21 15:11 | Progress Note ---
<GAMALIELLISSETH KemRigo - Last Filed: 12/21/20 15:17> History Interval history: 59-year-old female who is smoker who presented to [facility] with shortness of breath cough fever weakness for 1 to 2 days prior to arrival. Per EMS the patient was severely hypoxic with saturations in the low 80s. With all oxygen and nonrebreather came down to low 90s. ID, pulmonary, CCM were consulted. Septic Shock COVID-19 pneumonia Acute hypoxic hypercapnic respiratory failure Bilateral pneumothorax Pneumomediastinum with subcutaneous emphysema Elevated D-dimer Transaminitis secondary to Covid 19 Klebsiella pneumonia Type 2 diabetes mellitus Severe protien calorie malnutrition secondary to critical illness Hyponatremia Hypochloremia Metabolic alkalosis Hypercapnia Hypoxemia 2/1: Patient continues on BiPAP throughout the night. Labs are remarkable for hypoxia with improving renal function but lactic acidosis without fever. CTA has been ordered to rule out pulmonary embolism. I agree with increasing enoxaparin to twice daily full dose for empiric treatment of pulmonary embolism. Will obtain ID consultation on further evaluation for possible underlying pneumonia versus COVID-19. We will also obtain echocardiogram for evaluation. Will discontinue fluids at this time. 2/2; Continue supportive care, Patient remains with very guarded prognosis, remains on BiPAP, continues on Remdesivir, and steroids. Will continue an ticoagulation, unable to get CTA Chest due to patients unstable clinical status. Will adjust insulin for better blood glucose 2/3: Continues on BIPAP, no clear improvement at this time. Will continue steroids therapy Remdesivir and also Full anticoagulation at this time. Will update family. Discussed with Dolphin Trainer. 2/4: Taking a break from the BiPAP on high flow and nonrebreather 100% with s aturation of 90% becomes hypoxic with any movement. Dolphin Trainer input noted will get a dose of Lasix today. Will await a discussion with ID for possibly increasing steroid. I updated Patient's Cousin, Tayla Esquivel who is the emergency personnel analyst. Blood sugar remains fluctuating secondary to steriods, Encouraged Prone positioning. Noted with mild hyponatremia we will continue to monitor and manage 2/5: Continue supportive care wean oxygen as tolerated prognosis remains guarded. Encouraged to progress as tolerated. Awaiting labs today. Discussed with nursing staff and patient at bedside. 2/6: Discontinued Dexamethasone as Solumedrol started secondary to increased oxygen demand. Will give additional insulin for better control. Continue oxygen support patient still on high flow. Prognosis still guarded 11/22: Patient was intubated and placed on mechanical ventilation. Continue current medication. Will check a.m. labs today. Noted still with hypotension. Doubt septic shock at this time as patient has no new fever. Will adjust insulin for better blood sugar control. 11/23: Patient admitted with COVID-19 despite all efforts patient remains severely hypoxic and now is intubated. Dolphin Trainer input noted. Blood pressure marginal at this time. Very poor prognosis. Continue Solu-Medrol. 11/24. Patient remains very hypoxic. Blood pressure borderline. Plan for initiation of paralytic agents as per electrician constructor supervisor. Patient may need to be transferred if no improvement. 11/26. Off paralytics. Remains intubated. On steroids. Prognosis is poor. 11/27. Chest xray shows pneumomediastinum and subcutaneous emphysema. Surgery consulted. Plan for chest tube placement. Sputum culture grew MRSA. Patient s tarted on vancomycin per ID. 11/28. Right chest tube placed yesterday by surgery. Repeat chest x-ray showed left small pneumothorax. Plan for chest tube placement on the left today. Remains on paralytic agents. 11/29. Remains intubated on vent. Had left chest tube placed yesterday. Vitals reviewed. Critical care following 11/30/ Remains on mechanical ventilation. Worsening hypoxia. Bilateral chest tubes in place. Vitals reviewed. Labs reviewed 12/01: Chest tube and mechanical ventilation remains in place, poor prognosis, FIO2 remains at 90%, adjust insulin for better blood glucose control 12/02: Patient remains on full ventilatory support and steroids, still with worsening leukocytosis ?inflammatory or infectious vs steroids. Continue vancomycin. 12/03; slowly weaning, 12/04: Still on the vent FiO2 down to 65% PEEP remains at 18. Still with poor prognosis. 12/05: Patient continues on full ventilatory support per electrician constructor supervisor PEEP remains at 18. Still with hypercapnic respiratory failure. FiO2 down to 60% this morning. Chest tube to suction still weaning off steroids in the deliberation ongoing for possible a third chest tube as last documentation by surgery shows no plan for it at this time. Continue to manage insulin for better blood sugar control. 12/06:weaned down to 60%, continue supportive care, unable to wean, 12/07; patient remains intubated on ventilatory support, chest tubes in place trach and PEG when patient's Covid test is negative,Per surgery. 12/08; Patient remains intubated remains with hypercapnia and hypoxia. Chest tube still remain in place. He is off antibiotics at this time. Continue steroids which is likely resultant to the leukocytosis. Dolphin Trainer and surgeon following ID input is noted. Prognosis remains guarded to poor 12/10; patient remains intubated on vent, unable to wean awaiting trach and PEG when Covid test is negative, Continue current management 12/11; patient awaiting trach and PEG when Covid test is negative, vent dependent, poor prognosis 12/12; clinically no change, vent dependent, Patient is critically ill with very poor prognosis, awaiting trach and PEG when COVID-19 test turns negative. Plan discussed with nursing staff. Caregivers have discussed with patient's family periodically 12/13: Patient is critically ill with very poor prognosis, awaiting trach and PEG when COVID-19 test turns negative. Plan discussed with nursing staff. Caregivers have discussed with patient's family periodically 12/14: Increase UOP which we will monitor and replete as needed. Patient remain hypoxemic on ABG despite 100 FiO2, remains on fentanyl, precedex, versed and levo gtt. 12/15: Patient remains sedated on fentanyl at 3 mcg, Versed at 30 mg, dexamethasone 0.3 and was on Levophed 6 mcg this morning. Patient's vent settings rate of 30, tidal volume 425, PEEP of 18, FiO2 of 85. RT attempted to wean as tolerated. No acute events reported overnight. Bilateral chest tubes to wall suction. 12/16: Overnight the patient was noted to be bradycardic, Precedex drip was increased to 0.6/fentanyl to 4 mcg/Versed 5 mg, bilateral chest tube to suction. Current vent settings for 425/30/18/0.75, RT to wean as tolerated 12/17: Patient's T-max overnight was 101.2, obtain CXR today, blood culture x2 per ID. Patient remains on fentanyl, Versed, Precedex and Levophed. Current vent settings AC 425/30/18/0.75, RT to wean as tolerated. Continue steroid taper. 12/18: Patient remains sedated on fentanyl, Versed, Precedex and has vasopressor support of Levophed, current vent settings 425/30/18/0.75 with bilateral chest tubes to wall suction. Patient's blood culture from 12/17 grew gram-positive cocci in pairs and chains however the patient is on vancomycin and cefepime. We will continue to follow for speciation and sensitivity. 12/19: Unfortunately remains on full ventilatory support prognosis remains very p oor. No new fever however since 12/17. Continue to follow cultures not finalized yet. Antibiotics per ID critical care management input noted. Patient remains on high FiO2 and PEEP at this time. 12/20: Still with intermittent fever, likely secondary to covid 19, still with hyponatremia, continue with tube feed. cultures with coagulas negative staph, await further ID input. Continues on abx. 12/21: Patient remains on fentanyl, Precedex, Versed and Levophed and assist control for 25//.100 with bilateral chest tubes in place. Patient remains on antibiotic therapy. No acute events reported overnight. Hospitalist Physical - Constitutional Vitals: Temp Pulse Resp BP Pulse Ox 99.6 F 114 H 30 H 97/59 96 12/21/20 03:53 12/21/20 11:41 12/21/20 08:30 12/21/20 11:41 12/21/20 11:41 General appearance: Present: no acute distress, well-nourished, other (Vent dependent) - EENT Eyes: Present: PERRL ENT: hearing intact, clear oral mucosa - Neck Neck: Present: normal ROM - Respiratory Respiratory effort: normal Respiratory: bilateral: diminished - Cardiovascular Rhythm: regular Heart Sounds: Present: S1 & S2. Absent: systolic murmur, diastolic murmur - Extremities Extremities: no ischemia, pulses intact, pulses symmetrical, No edema, normal temperature, normal color, Full ROM Peripheral Pulses: within normal limits - Abdominal General gastrointestinal: soft, non-tender, non-distended, normal bowel sounds - Integumentary Integumentary: Present: warm, dry - Psychiatric Psychiatric: other (sedated) - Neurologic Neurologic: other (sedated) - Allied Health Allied health notes reviewed: nursing, RT, social work HEART Score - HEART Score Troponin: Troponin T < 0.010 ng/mL (0.00-0.029) 12/11/20 06:30 Results - Labs CBC & Chem 7: 12/20/20 04:00 12/21/20 09:57 Labs: Laboratory Last Values WBC 9.4 K/mm3 (4.5-11.0) 12/20/20 04:00 RBC 3.21 M/mm3 (3.65-5.03) L 12/20/20 04:00 Hgb 9.6 gm/dl (11.8-15.2) L 12/20/20 04:00 Hct 29.2 % (35.5-45.6) L 12/20/20 04:00 MCV 91 fl (84-94) 12/20/20 04:00 MCH 30 pg (28-32) 12/20/20 04:00 MCHC 33 % (32-34) 12/20/20 04:00 RDW 15.8 % (13.2-15.2) H 12/20/20 04:00 Plt Count 309 K/mm3 (140-440) 12/20/20 04:00 Lymph % (Auto) 2.0 % (13.4-35.0) L 11/27/20 06:25 Webb % (Auto) 5.2 % (0.0-7.3) 11/27/20 06:25 Eos % (Auto) 0.0 % (0.0-4.3) 11/27/20 06:25 Baso % (Auto) 0.1 % (0.0-1.8) 11/27/20 06:25 Lymph # (Auto) 0.3 K/mm3 (1.2-5.4) L 11/27/20 06:25 Webb # (Auto) 0.7 K/mm3 (0.0-0.8) 11/27/20 06:25 Eos # (Auto) 0.0 K/mm3 (0.0-0.4) 11/27/20 06:25 Baso # (Auto) 0.0 K/mm3 (0.0-0.1) 11/27/20 06:25 Add Manual Diff Complete 12/14/20 04:35 Total Counted 100 12/14/20 04:35 Seg Neutrophils % Mobile Sales Consultant 12/14/20 04:35 Seg Neuts % (Manual) 93.0 % (40.0-70.0) H 12/14/20 04:35 Band Neutrophils % 2.0 % 12/13/20 11:30 Lymphocytes % (Manual) 3.0 % (13.4-35.0) L 12/14/20 04:35 Monocytes % (Manual) 4.0 % (0.0-7.3) 12/14/20 04:35 Nucleated RBC % Not Reportable 12/14/20 04:35 Seg Neutrophils # 12.7 K/mm3 (1.8-7.7) H 11/27/20 06:25 Seg Neutrophils # Man 7.8 K/mm3 (1.8-7.7) H 12/14/20 04:35 Band Neutrophils # 0.0 K/mm3 12/14/20 04:35 Lymphocytes # (Manual) 0.3 K/mm3 (1.2-5.4) L 12/14/20 04:35 Abs React Lymphs (Man) 0.0 K/mm3 12/14/20 04:35 Monocytes # (Manual) 0.3 K/mm3 (0.0-0.8) 12/14/20 04:35 Eosinophils # (Manual) 0.0 K/mm3 (0.0-0.4) 12/14/20 04:35 Basophils # (Manual) 0.0 K/mm3 (0.0-0.1) 12/14/20 04:35 Metamyelocytes # 0.0 K/mm3 12/14/20 04:35 Myelocytes # 0.0 K/mm3 12/14/20 04:35 Promyelocytes # 0.0 K/mm3 12/14/20 04:35 Blast Cells # 0.0 K/mm3 12/14/20 04:35 WBC Morphology Not Reportable 12/14/20 04:35 Hypersegmented Neuts Not Reportable 12/14/20 04:35 Hyposegmented Neuts Not Reportable 12/14/20 04:35 Hypogranular Neuts Not Reportable 12/14/20 04:35 Smudge Cells Not Reportable 12/14/20 04:35 Toxic Granulation Not Reportable 12/14/20 04:35 Toxic Vacuolation Not Reportable 12/14/20 04:35 Dohle Bodies Not Reportable 12/14/20 04:35 Pelger-Huet Anomaly Not Reportable 12/14/20 04:35 Tony Rods Not Reportable 12/14/20 04:35 Platelet Estimate Consistent w auto 12/14/20 04:35 Clumped Platelets Not Reportable 12/14/20 04:35 Plt Clumps, EDTA Not Reportable 12/14/20 04:35 Large Platelets Not Reportable 12/14/20 04:35 Giant Platelets Not Reportable 12/14/20 04:35 Platelet Satelliting Not Reportable 12/14/20 04:35 Plt Morphology Comment Not Reportable 12/14/20 04:35 RBC Morphology Not Reportable 12/14/20 04:35 Dimorphic RBCs Not Reportable 12/14/20 04:35 Polychromasia Not Reportable 12/14/20 04:35 Hypochromasia Few 12/14/20 04:35 Poikilocytosis Not Reportable 12/14/20 04:35 Anisocytosis Few 12/14/20 04:35 Microcytosis Not Reportable 12/14/20 04:35 Macrocytosis Not Reportable 12/14/20 04:35 Spherocytes Not Reportable 12/14/20 04:35 Pappenheimer Bodies Not Reportable 12/14/20 04:35 Sickle Cells Not Reportable 12/14/20 04:35 Target Cells Not Reportable 12/14/20 04:35 Tear Drop Cells Not Reportable 12/14/20 04:35 Ovalocytes Not Reportable 12/14/20 04:35 Stomatocytes 1+ 12/03/20 04:35 Helmet Cells Not Reportable 12/14/20 04:35 Cabrera-Stacy Bodies Not Reportable 12/14/20 04:35 [place] Rings Not Reportable 12/14/20 04:35 [place] Cells Not Reportable 12/14/20 04:35 Bite Cells Not Reportable 12/14/20 04:35 Crenated Cell Not Reportable 12/14/20 04:35 Elliptocytes Not Reportable 12/14/20 04:35 Acanthocytes (Spur) Not Reportable 12/14/20 04:35 Rouleaux Not Reportable 12/14/20 04:35 Hemoglobin C Crystals Not Reportable 12/14/20 04:35 Schistocytes Not Reportable 12/14/20 04:35 Malaria parasites Not Reportable 12/14/20 04:35 Yovani Bodies Not Reportable 12/14/20 04:35 Hem Pathologist Commnt No 12/14/20 04:35 D-Dimer 926.11 ng/mlDDU (0-234) H 11/26/20 06:04 ABG pH 7.40 (7.320-7.450) 12/21/20 03:30 POC ABG pCO2 73.4 mmHg (32.0-48.0) H 12/21/20 03:30 ABG pCO2 81.3 mm Hg 12/08/20 04:12 POC ABG pO2 63.0 mmHg (83-108) L 12/21/20 03:30 ABG pO2 69.7 mm Hg (80.0-90.0) L 12/08/20 04:12 POC ABG HCO3 44.4 12/21/20 03:30 ABG HCO3 50.1 mmol/L (20.0-26.0) H 12/08/20 04:12 ABG O2 Saturation 95.4 % (95.0-99.0) 12/08/20 04:12 ABG O2 Content 13.0 (0.0-44) 12/07/20 05:20 POC ABG Base Excess 16.9 12/21/20 03:30 ABG Base Excess 21.6 mmol/L (-2.0-3.0) H 12/08/20 04:12 ABG Hemoglobin 10.1 (12.0-17.5) L 12/21/20 03:30 ABG Oxyhemoglobin 84.2 (94-98) L 12/19/20 03:41 ABG Carboxyhemoglobin 2.0 % (0.0-5.0) 12/08/20 04:12 ABG Methemoglobin 0.3 (0.0-1.5) 12/19/20 03:41 ABG Sodium 130.5 mmol/L (136.0-145.0) L 12/21/20 03:30 ABG Potassium 4.0 mmol/L (3.40-4.50) 12/21/20 03:30 ABG Chloride 89.0 mmol/L (98-107) L 12/21/20 03:30 ABG Glucose 171 mg/dL (65-95) H 12/21/20 03:30 Oxyhemoglobin 93.2 % (95.0-99.0) L 12/08/20 04:12 Carboxyhemoglobin 1.6 (0.5-1.5) H 12/19/20 03:41 FiO2 100 12/21/20 03:30 Sodium 132 mmol/L (137-145) L 12/21/20 09:57 Potassium 4.1 mmol/L (3.6-5.0) 12/21/20 09:57 Chloride 87.7 mmol/L (98-107) L 12/21/20 09:57 Carbon Dioxide 42 mmol/L (22-30) H* 12/21/20 09:57 Anion Gap 6 mmol/L 12/21/20 09:57 BUN 12 mg/dL (9-20) 12/21/20 09:57 Creatinine 0.2 mg/dL (0.8-1.3) L 12/21/20 09:57 Estimated GFR > 60 ml/min 12/21/20 09:57 BUN/Creatinine Ratio 60 % 12/21/20 09:57 Glucose 207 mg/dL (75-100) H 12/21/20 09:57 POC Glucose 152 mg/dL (70-105) H 12/21/20 05:37 Hemoglobin A1c 11.7 % (4-6) H 11/16/20 05:29 Lactic Acid 2.60 mmol/L (0.7-2.0) H* 11/16/20 05:29 Calcium 7.7 mg/dL (8.4-10.2) L 12/21/20 09:57 Phosphorus 2.60 mg/dL (2.5-4.5) 12/17/20 17:25 Magnesium 1.60 mg/dL (1.7-2.3) L 12/17/20 17:25 Ferritin 778.8 ng/mL (30.0-300.0) H 11/26/20 04:00 Total Bilirubin 0.40 mg/dL (0.1-1.2) 12/17/20 17:25 AST 29 units/L (5-40) 12/17/20 17:25 ALT 47 units/L (7-56) 12/17/20 17:25 Alkaline Phosphatase 119 units/L (35-129) 12/17/20 17:25 Lactate Dehydrogenase 288 units/L (91-180) H 11/26/20 04:00 Total Creatine Kinase 47 units/L (55-170) L 12/17/20 17:25 CK-MB (CK-2) 1.8 ng/mL (0.0-4.0) 12/17/20 17:25 CK-MB (CK-2) Rel Index 3.8 (0-4) 12/17/20 17:25 Troponin T < 0.010 ng/mL (0.00-0.029) 12/11/20 06:30 C-Reactive Protein 1.40 mg/dL (0.00-1.30) H 11/26/20 04:00 NT-Pro-B Natriuret Pep 107.2 pg/mL (0-900) 11/17/20 10:21 Total Protein 6.2 g/dL (6.3-8.2) L 12/17/20 17:25 Albumin 2.1 g/dL (3.9-5) L 12/17/20 17:25 Albumin/Globulin Ratio 0.5 % 12/17/20 17:25 Triglycerides 150 mg/dL (2-149) H 12/12/20 05:16 Procalcitonin 0.16 ng/mL (<0.15) 12/12/20 05:16 Arterial Blood Glucose 171 mg/dL (65-95) H 12/21/20 03:30 Arterial Blood Ionized Calcium 4.2 mg/dL (4.6-5.3) L 12/21/20 03:30 Urine Color Faustina (Yellow) 11/16/20 01:45 Urine Turbidity Slightly-cloudy (Clear) 11/16/20 01:45 Urine pH 6.0 (5.0-7.0) 11/16/20 01:45 Ur Specific [place] 1.037 (1.003-1.030) H 11/16/20 01:45 Urine Protein 30 mg/dl mg/dL (Negative) 11/16/20 01:45 Urine Glucose (UA) >=500 mg/dL (Negative) 11/16/20 01:45 Urine Ketones 20 mg/dL (Negative) 11/16/20 01:45 Urine Blood Neg (Negative) 11/16/20 01:45 Urine Nitrite Neg (Negative) 11/16/20 01:45 Urine Bilirubin Neg (Negative) 11/16/20 01:45 Urine Urobilinogen 2.0 mg/dL (<2.0) 11/16/20 01:45 Ur Leukocyte Esterase Neg (Negative) 11/16/20 01:45 Urine WBC (Auto) 2.0 /HPF (0.0-6.0) 11/16/20 01:45 Urine RBC (Auto) 1.0 /HPF (0.0-6.0) 11/16/20 01:45 Urine Bacteria (Auto) 1+ /HPF (Negative) 11/16/20 01:45 Urine Mucus 3+ /HPF 11/16/20 01:45 Vancomycin Trough 16.9 ug/mL (5.0-20.0) 12/19/20 15:46 Coronavirus (PCR) Positive (Negative) A 12/13/20 10:00 Hepatitis A IgM Ab Non-reactive (NonReactive) 12/17/20 21:40 Hep Bs Antigen Non-reactive (Negative) 12/17/20 21:40 Hep B Core IgM Ab Non-reactive (NonReactive) 12/17/20 21:40 Hepatitis C Antibody Non-reactive (NonReactive) 12/17/20 21:40 HIV 1&2 Antibody Rapid Non react (Non React) 12/17/20 21:40 HIV P24 Antigen Non react (Non React) 12/17/20 21:40 Microbiology: Microbiology 12/17/20 Unknown Peripheral/Venous Blood Culture - Preliminary Enterococcus Faecalis 12/17/20 Unknown Tracheal Aspirate Sputum Culture - Final 12/17/20 21:00 Urine,Gupta Port Urine Culture - Final Emma Albicans - Diagnostic Impressions Diagnostic Impressions: Echocardiogram 11/16/20 10:34 Transthoracic Echocardiogram Indication: Shortness of breath-COVID BP: 108/77 HR: 92 Conclusions *Global left ventricular systolic function is normal. *The estimated ejection fraction is 60-65%. *Mild to moderate concentric left ventricular hypertrophy is observed. *There is trace of mitral regurgitation. *There is mild to moderate tricuspid regurgitation. *There is evidence of mild pulmonary hypertension. *The right ventricular systolic pressure is calculated at 31 mmHg. Findings Left Ventricle: The left ventricular chamber size is normal. Mild to moderate concentric left ventricular hypertrophy is observed. Global left ventricular systolic function is normal. The estimated ejection fraction is 60-65%. Left Atrium: The left atrial chamber size is normal. Right Ventricle: The right ventricular cavity size is normal. The right ventricular global systolic function is normal. Right Atrium: The right atrial cavity size is normal. Aortic Valve: The aortic valve is trileaflet. There is no evidence of aortic regurgitation. There is no evidence of aortic stenosis. Mitral Valve: The mitral valve leaflets appear normal. There is trace of mitral regurgitation. There is no evidence of mitral stenosis. Tricuspid Valve: The tricuspid valve leaflets are normal. There is mild to moderate tricuspid regurgitation. The right ventricular systolic pressure is calculated at 31 mmHg. There is evidence of mild pulmonary hypertension. Pulmonic Valve: There is trace pulmonic regurgitation. Pericardium: There is no pericardial effusion. Aorta: There is no dilatation of the ascending aorta. There is no dilatation of the aortic root. Venous: The inferior vena cava appears normal in size. Measurements Chambers 2D Name Value Normal Range IVSd (2D) 0.81 cm (0.6 - 1.1) LVPWd (2D) 0.79 cm (0.6 - 1.1) LVIDd (2D) 4.22 cm (3.7 - 5.6) LVIDs (2D) 3.1 cm (2 - 3.8) LV FS (2D) 26.71 % - EF Teichholz (2D) 52.55 % - Ao root diameter (2D) 3.34 cm (2 - 3.7) Volumes/Mass Name Value Normal Range LA ESV SP 4CH (A/L) 10.87 ml - LA ESV SP 2CH (A/L) 18.74 ml - LA ESV BP (A/L) 16.38 ml - LA ESV BP (A/L) index 8.62 ml/m2 - LA ESV SP 4CH (MOD) 10.32 ml - LA ESV SP 2CH (MOD) 17.66 ml - LA ESV BP (MOD) 15.12 ml - LA ESV BP (MOD) index 7.96 ml/m2 - Diastolic/Systolic Function Name Value Normal Range MV E-wave Vmax 0.76 m/sec - MV deceleration time 133.63 msec - MV A-wave Vmax 1.1 m/sec - MV E:A ratio 0.69 ratio - Aortic Valve Name Value Normal Range AV Vmax 1.44 m/sec - AV VTI 22.94 cm - AV peak gradient 8.33 mmHg - AV mean gradient 4.73 mmHg - LVOT diameter 2.2 cm - LVOT Vmax 1.04 m/sec - LVOT VTI 18.88 cm - LVOT peak gradient 4.34 mmHg - LVOT mean gradient 2.31 mmHg - SV LVOT 72.05 ml - EVANGELISTA (continuity Vmax) 2.75 cm2 - EVANGELISTA (continuity VTI) 3.14 cm2 - Tricuspid Valve Name Value Normal Range TR Vmax 2.64 m/sec - TR peak gradient 28 mmHg - RAP 3 mmHg - RVSP 31 mmHg - Gupta/IV: Voiding Method Indwelling Catheter IV Catheter Type [Left Peripheral IV Antecubital] Active Medications - Current Medications Current Medications: Generic Name Dose Route Start Last Admin Trade Name Freq PRN Reason Stop Dose Admin Acetaminophen 650 mg 11/15/20 23:55 12/21/20 00:41 Acetaminophen 325 Mg Tab PO 650 mg Q4H PRN Administration Pain MILD(1-3)/Fever >100.5/BUTTS Lipase/Protease/Amylase 1 each 11/23/20 11:53 12/05/20 23:45 Lipase 10,500/Protease 25,000/Amylase 43,750 (Units) Dr Slater FEEDTUBE 1 each PRN PRN Administration For Clogged Feeding Tube Dextrose 25 ml 12/10/20 05:21 12/10/20 05:24 Dextrose 50% In Water (25gm) 50 Ml Syringe IV 25 ml Q30MIN PRN Administration Hypoglycemia Protocol Enoxaparin Sodium 40 mg 12/03/20 22:00 12/20/20 22:02 Enoxaparin 40 Mg/0.4 Ml Inj SUB-Q 40 mg QDAY@2200 RAEANN Administration Famotidine 20 mg 12/16/20 10:00 12/21/20 10:16 Famotidine 20 Mg Tab PO 20 mg BID RAEANN Administration Hydrophilic Ointment 1 applic 11/21/20 21:53 11/30/20 21:33 Lip Therapy Vaseline TP 1 applic Q2HR PRN Administration Dry Lips Midazolam HCl 100 mg/ Sodium 100 mls @ 2 mls/hr 11/21/20 22:00 12/20/20 20:24 Chloride IV 5 mg/hr TITR RAEANN 5 mls/hr Administration Protocol 2 MG/HR Norepinephrine 4 mg in 250 mls @ 7.5 mls/hr 11/22/20 17:00 12/21/20 15:08 Levophed Drip 4 Mg/Ns 250 Ml IV 12 mcg/min TITR RAEANN 45 mls/hr Administration Protocol 2 MCG/MIN Propofol 1,000 mg in 100 mls @ 2.175 mls/hr 11/27/20 12:00 12/21/20 12:03 Diprivan 10 Mg/Ml IV 15 mcg/kg/min TITR RAEANN 6.525 mls/hr Administration Protocol 5 MCG/KG/MIN Dexmedetomidine HCl 400 mcg/ 104 mls @ 4.441 mls/hr 12/10/20 13:00 12/21/20 13:32 Sodium Chloride IV 0.8 mcg/kg/hr TITRATE RAEANN 17.763 mls/hr Administration Protocol 0.2 MCG/KG/HR Cefepime HCl 2 gm in 100 mls @ 200 mls/hr 12/17/20 14:00 12/21/20 13:08 Cefepime/Ns 2 Gm/100 Ml IV 200 mls/hr Q8HR [facility] Administration Protocol Vancomycin HCl 1,500 mg/ 530 mls @ 333.333 mls/hr 12/17/20 16:00 12/21/20 04:02 Sodium Chloride IV 333.333 mls/hr Q12H RAEANN Administration Fentanyl Citrate 2,000 mcg in 100 mls @ 3.9 mls/hr 12/18/20 19:00 12/21/20 1 3:08 Fentanyl Drip Premix IV 4 mcg/kg/hr TITR RAEANN 15.6 mls/hr Administration Protocol 1 MCG/KG/HR Insulin Glargine 8 units 12/17/20 13:52 12/20/20 22:02 Insulin Glargine 100 Units/Ml SUB-Q 8 units QHS [facility] Administration Insulin Human Lispro 0 unit 11/22/20 06:00 12/21/20 13:15 Insulin Lispro 100 Unit/Ml SUB-Q 3 unit Q6HR [facility] Administration Protocol Metoclopramide HCl 10 mg 11/15/20 23:55 Metoclopramide 10 Mg/2 Ml Inj IV Q6H PRN Nausea And Vomiting Multi-Ingred Cream/Lotion/Oil/Oint 1 applic 11/21/20 21:53 Mineral Oil/Petrolatum, White Ophth Oint 3.5 Gm OU Q4HR PRN Dry Eye(s) Ondansetron HCl 4 mg 11/15/20 23:55 Ondansetron 4 Mg/2 Ml Inj IV Q8H PRN Nausea And Vomiting Prednisone 10 mg 12/19/20 10:00 12/21/20 10:20 Prednisone 10 Mg Tab PO 12/22/20 10:01 10 mg QDAY RAEANN Administration Senna/Docusate Sodium 2 tab 12/21/20 14:00 12/21/20 13:08 Sennosides/Docusate Sodium 8.6/50 Mg Tab PO 2 tab Q8HR RAEANN Administration Simple Syrup 15 ml 11/23/20 11:53 Simple Syrup 15 Ml FEEDTUBE PRN PRN Hypoglycemia Simple Syrup 30 ml 11/23/20 11:53 Simple Syrup 15 Ml FEEDTUBE PRN PRN Hypoglycemia Sodium Bicarbonate 325 mg 11/23/20 11:53 12/05/20 23:46 Sodium Bicarbonate 325 Mg Tab FEEDTUBE 325 mg PRN PRN Administration For Clogged Feeding Tube Sodium Chloride 10 ml 11/16/20 10:00 12/21/20 12:03 Sodium Chloride 0.9% 10 Ml Flush Syringe IV 10 ml BID RAEANN Administration Sodium Chloride 10 ml 11/15/20 23:55 12/03/20 00:21 Sodium Chloride 0.9% 10 Ml Flush Syringe IV 10 ml PRN PRN Administration LINE [employer]USH Nutrition/Malnutrition Assess - Dietary Evaluation Nutrition/Malnutrition Findings: Nutrition Notes Start: 11/20/20 12:03 Freq: Status: Active Protocol: Document 12/21/20 12:15 (Rec: 12/21/20 12:25 [id number]) Nutrition Notes Initial or Follow up Reassessment Current Diagnosis Diabetes,Sepsis,Respiratory Failure Other Pertinent Diagnosis Bilat pneu, COVID-19 (+) Current Diet Glucerna 1.2 at 60 ml/hr Labs/Tests Na 132 BG 207 Pertinent Medications Propofol Levophed Prednisone Senokot S Height 5 ft 6 in Weight 81.3 kg [place] Body Weight (kg) 64.54 BMI 28.9 Weight Status Overweight Subjective/Other Information FU for TF tolerance. Pt tolerating TF at goal. MD to increase Percent of energy/protein needs met: 100%/100% Burn Absent Trauma Absent GI Symptoms Last BM Difficulty In Swallowing,Chewing Current % PO Negligible Minimum of two criteria Yes Energy Intake (severe) < or equal to 50% Estimated Energy Requirement > or equal to 5 days Interpretation of Weight Loss (severe) >2% in 1 week Fluid Accumulation Moderate to Severe (severe) #3 Nutrition Diagnosis Inadequate oral intake Diagnosis Progress(for reassessment Continues documentation) #2 Nutrition Diagnosis Malnutrition Diagnosis Progress(for reassessment Continues documentation) #1 Nutrition Diagnosis Unintended weight loss Diagnosis Progress(for reassessment Continues documentation) Is patient on ventilator? Yes Is Patient Ambulatory and/or Out of Bed No REE-([place]-confined to bed) 1895.496 Kcal/Kg value to use for calculation 22 Approximate Energy Requirements Using 1789 kcal/Kg Calculation Used for Recommendations [place] Additional Notes Protein: 87-145 g/day (1.2-2g/ kg) Fluid: 1ml/kcal or per MD Nutrition Intervention Change Diet Order: Continue TF Nutrition Support: Glucerna 1.2 at 65 ml/hr. Flush 125 ml q4h Kcal 1,872 Protein (gm) 93 Fluid (mL) 1,255 Goal #1 Meet at least 75% of energy and protein needs via TF Goal #2 TF tolerance Anticipated Discharge Needs: Unable to determine at this time Follow-Up By: 12/25/20 Additional Comments FU for TF tolerance, BM <DEMETRIO GONZALEZ - Last Filed: 12/25/20 07:37> Assessment and Plan Assessment and plan: I saw and evaluated the patient. I agree with the findings and the plan of care as documented in the Nurse Practitioner's~note, with the following corrections and additions. Hospitalist Physical - Constitutional Vitals: Temp Pulse Resp BP Pulse Ox 101.5 F H 114 H 30 H 86/47 86 12/25/20 07:32 12/25/20 06:15 12/25/20 06:15 12/25/20 06:15 12/25/20 06:15 HEART Score - HEART Score Troponin: Troponin T < 0.010 ng/mL (0.00-0.029) 12/11/20 06:30 Results - Labs CBC & Chem 7: 12/24/20 18:57 12/23/20 06:07 Labs: Laboratory Last Values WBC 19.1 K/mm3 (4.5-11.0) H 12/24/20 18:57 RBC 2.91 M/mm3 (3.65-5.03) L 12/24/20 18:57 Hgb 8.3 gm/dl (11.8-15.2) L 12/24/20 18:57 Hct 26.0 % (35.5-45.6) L 12/24/20 18:57 MCV 90 fl (84-94) 12/24/20 18:57 MCH 28 pg (28-32) 12/24/20 18:57 MCHC 32 % (32-34) 12/24/20 18:57 RDW 16.0 % (13.2-15.2) H 12/24/20 18:57 Plt Count 355 K/mm3 (140-440) 12/24/20 18:57 Lymph % (Auto) 2.0 % (13.4-35.0) L 11/27/20 06:25 Webb % (Auto) 5.2 % (0.0-7.3) 11/27/20 06:25 Eos % (Auto) 0.0 % (0.0-4.3) 11/27/20 06:25 Baso % (Auto) 0.1 % (0.0-1.8) 11/27/20 06:25 Lymph # (Auto) 0.3 K/mm3 (1.2-5.4) L 11/27/20 06:25 Webb # (Auto) 0.7 K/mm3 (0.0-0.8) 11/27/20 06:25 Eos # (Auto) 0.0 K/mm3 (0.0-0.4) 11/27/20 06:25 Baso # (Auto) 0.0 K/mm3 (0.0-0.1) 11/27/20 06:25 Add Manual Diff Complete 12/24/20 18:57 Total Counted 100 12/24/20 18:57 Seg Neutrophils % Mobile Sales Consultant 12/24/20 18:57 Seg Neuts % (Manual) 92.0 % (40.0-70.0) H 12/24/20 18:57 Band Neutrophils % 2.0 % 12/13/20 11:30 Lymphocytes % (Manual) 5.0 % (13.4-35.0) L 12/24/20 18:57 Monocytes % (Manual) 3.0 % (0.0-7.3) 12/24/20 18:57 Nucleated RBC % Not Reportable 12/24/20 18:57 Seg Neutrophils # 12.7 K/mm3 (1.8-7.7) H 11/27/20 06:25 Seg Neutrophils # Man 17.6 K/mm3 (1.8-7.7) H 12/24/20 18:57 Band Neutrophils # 0.0 K/mm3 12/24/20 18:57 Lymphocytes # (Manual) 1.0 K/mm3 (1.2-5.4) L 12/24/20 18:57 Abs React Lymphs (Man) 0.0 K/mm3 12/24/20 18:57 Monocytes # (Manual) 0.6 K/mm3 (0.0-0.8) 12/24/20 18:57 Eosinophils # (Manual) 0.0 K/mm3 (0.0-0.4) 12/24/20 18:57 Basophils # (Manual) 0.0 K/mm3 (0.0-0.1) 12/24/20 18:57 Metamyelocytes # 0.0 K/mm3 12/24/20 18:57 Myelocytes # 0.0 K/mm3 12/24/20 18:57 Promyelocytes # 0.0 K/mm3 12/24/20 18:57 Blast Cells # 0.0 K/mm3 12/24/20 18:57 WBC Morphology Not Reportable 12/24/20 18:57 Hypersegmented Neuts Not Reportable 12/24/20 18:57 Hyposegmented Neuts Not Reportable 12/24/20 18:57 Hypogranular Neuts Not Reportable 12/24/20 18:57 Smudge Cells Not Reportable 12/24/20 18:57 Toxic Granulation Not Reportable 12/24/20 18:57 Toxic Vacuolation Not Reportable 12/24/20 18:57 Dohle Bodies Not Reportable 12/24/20 18:57 Pelger-Huet Anomaly Not Reportable 12/24/20 18:57 Tony Rods Not Reportable 12/24/20 18:57 Platelet Estimate Not Reportable 12/24/20 18:57 Clumped Platelets Not Reportable 12/24/20 18:57 Plt Clumps, EDTA Not Reportable 12/24/20 18:57 Large Platelets Not Reportable 12/24/20 18:57 Giant Platelets Not Reportable 12/24/20 18:57 Platelet Satelliting Not Reportable 12/24/20 18:57 Plt Morphology Comment Not Reportable 12/24/20 18:57 RBC Morphology Not Reportable 12/24/20 18:57 Dimorphic RBCs Not Reportable 12/24/20 18:57 Polychromasia Not Reportable 12/24/20 18:57 Hypochromasia Not Reportable 12/24/20 18:57 Poikilocytosis Not Reportable 12/24/20 18:57 Anisocytosis Rare 12/24/20 18:57 Microcytosis Not Reportable 12/24/20 18:57 Macrocytosis Not Reportable 12/24/20 18:57 Spherocytes Not Reportable 12/24/20 18:57 Pappenheimer Bodies Not Reportable 12/24/20 18:57 Sickle Cells Not Reportable 12/24/20 18:57 Target Cells Not Reportable 12/24/20 18:57 Tear Drop Cells Not Reportable 12/24/20 18:57 Ovalocytes Not Reportable 12/24/20 18:57 Stomatocytes 1+ 12/03/20 04:35 Helmet Cells Not Reportable 12/24/20 18:57 Cabrera-Stacy Bodies Not Reportable 12/24/20 18:57 [place] Rings Not Reportable 12/24/20 18:57 [place] Cells Not Reportable 12/24/20 18:57 Bite Cells Not Reportable 12/24/20 18:57 Crenated Cell Not Reportable 12/24/20 18:57 Elliptocytes Not Reportable 12/24/20 18:57 Acanthocytes (Spur) Not Reportable 12/24/20 18:57 Rouleaux Not Reportable 12/24/20 18:57 Hemoglobin C Crystals Not Reportable 12/24/20 18:57 Schistocytes Not Reportable 12/24/20 18:57 Malaria parasites Not Reportable 12/24/20 18:57 Yovani Bodies Not Reportable 12/24/20 18:57 Hem Pathologist Commnt No 12/24/20 18:57 D-Dimer 926.11 ng/mlDDU (0-234) H 11/26/20 06:04 ABG pH 7.372 (7.320-7.450) 12/25/20 04:04 POC ABG pCO2 75.6 mmHg (32.0-48.0) H 12/25/20 04:04 ABG pCO2 81.3 mm Hg 12/08/20 04:12 POC ABG pO2 43.3 mmHg (83-108) L 12/25/20 04:04 ABG pO2 69.7 mm Hg (80.0-90.0) L 12/08/20 04:12 POC ABG HCO3 42.9 12/25/20 04:04 ABG HCO3 50.1 mmol/L (20.0-26.0) H 12/08/20 04:12 ABG O2 Saturation 79.8 (0-100) 12/25/20 04:04 ABG O2 Content 13.0 (0.0-44) 12/07/20 05:20 POC ABG Base Excess 14.9 12/25/20 04:04 ABG Base Excess 21.6 mmol/L (-2.0-3.0) H 12/08/20 04:12 ABG Hemoglobin 10.6 (12.0-17.5) L 12/25/20 04:04 ABG Oxyhemoglobin 77.6 (94-98) L 12/25/20 04:04 ABG Carboxyhemoglobin 2.0 % (0.0-5.0) 12/08/20 04:12 ABG Methemoglobin 0.3 (0.0-1.5) 12/25/20 04:04 ABG Sodium 131.4 mmol/L (136.0-145.0) L 12/25/20 04:04 ABG Potassium 4.2 mmol/L (3.40-4.50) 12/25/20 04:04 ABG Chloride 90.0 mmol/L (98-107) L 12/25/20 04:04 ABG Glucose 185 mg/dL (65-95) H 12/25/20 04:04 Oxyhemoglobin 93.2 % (95.0-99.0) L 12/08/20 04:12 Carboxyhemoglobin 2.4 (0.5-1.5) H 12/25/20 04:04 FiO2 90 12/23/20 05:19 FiO2 % 100 12/25/20 04:04 Sodium 135 mmol/L (137-145) L 12/23/20 06:07 Potassium 4.1 mmol/L (3.6-5.0) 12/23/20 06:07 Chloride 89.3 mmol/L (98-107) L 12/23/20 06:07 Carbon Dioxide 43 mmol/L (22-30) H* 12/23/20 06:07 Anion Gap 7 mmol/L 12/23/20 06:07 BUN 11 mg/dL (9-20) 12/23/20 06:07 Creatinine 0.2 mg/dL (0.8-1.3) L 12/23/20 06:07 Estimated GFR > 60 ml/min 12/23/20 06:07 BUN/Creatinine Ratio 55 % 12/23/20 06:07 Glucose 193 mg/dL (75-100) H 12/23/20 06:07 POC Glucose 181 mg/dL (70-105) H 12/24/20 23:31 Hemoglobin A1c 11.7 % (4-6) H 11/16/20 05:29 Lactic Acid 2.60 mmol/L (0.7-2.0) H* 11/16/20 05:29 Calcium 7.4 mg/dL (8.4-10.2) L 12/23/20 06:07 Phosphorus 2.60 mg/dL (2.5-4.5) 12/17/20 17:25 Magnesium 1.60 mg/dL (1.7-2.3) L 12/17/20 17:25 Ferritin 778.8 ng/mL (30.0-300.0) H 11/26/20 04:00 Total Bilirubin 0.40 mg/dL (0.1-1.2) 12/17/20 17:25 AST 29 units/L (5-40) 12/17/20 17:25 ALT 47 units/L (7-56) 12/17/20 17:25 Alkaline Phosphatase 119 units/L (35-129) 12/17/20 17:25 Lactate Dehydrogenase 288 units/L (91-180) H 11/26/20 04:00 Total Creatine Kinase 47 units/L (55-170) L 12/17/20 17:25 CK-MB (CK-2) 1.8 ng/mL (0.0-4.0) 12/17/20 17:25 CK-MB (CK-2) Rel Index 3.8 (0-4) 12/17/20 17:25 Troponin T < 0.010 ng/mL (0.00-0.029) 12/11/20 06:30 C-Reactive Protein 1.40 mg/dL (0.00-1.30) H 11/26/20 04:00 NT-Pro-B Natriuret Pep 107.2 pg/mL (0-900) 11/17/20 10:21 Total Protein 6.2 g/dL (6.3-8.2) L 12/17/20 17:25 Albumin 2.1 g/dL (3.9-5) L 12/17/20 17:25 Albumin/Globulin Ratio 0.5 % 12/17/20 17:25 Triglycerides 486 mg/dL (2-149) H 12/24/20 05:00 Procalcitonin 0.16 ng/mL (<0.15) 12/12/20 05:16 Arterial Blood Glucose 185 mg/dL (65-95) H 12/25/20 04:04 Arterial Blood Ionized Calcium 4.1 mg/dL (4.6-5.3) L 12/25/20 04:04 Urine Color Yellow (Yellow) 12/21/20 Unknown Urine Turbidity Cloudy (Clear) 12/21/20 Unknown Urine pH 6.0 (5.0-7.0) 12/21/20 Unknown Ur Specific [place] 1.013 (1.003-1.030) 12/21/20 Unknown Urine Protein <15 mg/dl mg/dL (Negative) 12/21/20 Unknown Urine Glucose (UA) Neg mg/dL (Negative) 12/21/20 Unknown Urine Ketones Neg mg/dL (Negative) 12/21/20 Unknown Urine Blood Neg (Negative) 12/21/20 Unknown Urine Nitrite Neg (Negative) 12/21/20 Unknown Urine Bilirubin Neg (Negative) 12/21/20 Unknown Urine Urobilinogen < 2.0 mg/dL (<2.0) 12/21/20 Unknown Ur Leukocyte Esterase Mod (Negative) 12/21/20 Unknown Urine WBC (Auto) 172.0 /HPF (0.0-6.0) H 12/21/20 Unknown Urine RBC (Auto) > 182.0 /HPF (0.0-6.0) 12/21/20 Unknown U Epithel Cells (Auto) 3.0 /HPF (0-13.0) 12/21/20 Unknown Urine Bacteria (Auto) 2+ /HPF (Negative) 12/21/20 Unknown Ur Renal Epithelial Cell <1 /LPF 12/21/20 Unknown Urine Mucus 2+ /HPF 12/21/20 Unknown Urine Yeast (Budding) 3+ /HPF 12/21/20 Unknown Vancomycin Trough 16.9 ug/mL (5.0-20.0) 12/19/20 15:46 Coronavirus (PCR) Positive (Negative) A 12/13/20 10:00 Hepatitis A IgM Ab Non-reactive (NonReactive) 12/17/20 21:40 Hep Bs Antigen Non-reactive (Negative) 12/17/20 21:40 Hep B Core IgM Ab Non-reactive (NonReactive) 12/17/20 21:40 Hepatitis C Antibody Non-reactive (NonReactive) 12/17/20 21:40 HIV 1&2 Antibody Rapid Non react (Non React) 12/17/20 21:40 HIV P24 Antigen Non react (Non React) 12/17/20 21:40 Microbiology: Microbiology 12/21/20 16:44 Peripheral/Venous Blood Culture - Preliminary NO GROWTH AFTER 72 HOURS 12/21/20 16:44 Peripheral/Venous Blood Culture - Preliminary NO GROWTH AFTER 72 HOURS - Diagnostic Impressions Diagnostic Impressions: Echocardiogram 11/16/20 10:34 Transthoracic Echocardiogram Indication: Shortness of breath-COVID BP: 108/77 HR: 92 Conclusions *Global left ventricular systolic function is normal. *The estimated ejection fraction is 60-65%. *Mild to moderate concentric left ventricular hypertrophy is observed. *There is trace of mitral regurgitation. *There is mild to moderate tricuspid regurgitation. *There is evidence of mild pulmonary hypertension. *The right ventricular systolic pressure is calculated at 31 mmHg. Findings Left Ventricle: The left ventricular chamber size is normal. Mild to moderate concentric left ventricular hypertrophy is observed. Global left ventricular systolic function is normal. The estimated ejection fraction is 60-65%. Left Atrium: The left atrial chamber size is normal. Right Ventricle: The right ventricular cavity size is normal. The right ventricular global systolic function is normal. Right Atrium: The right atrial cavity size is normal. Aortic Valve: The aortic valve is trileaflet. There is no evidence of aortic regurgitation. There is no evidence of aortic stenosis. Mitral Valve: The mitral valve leaflets appear normal. There is trace of mitral regurgitation. There is no evidence of mitral stenosis. Tricuspid Valve: The tricuspid valve leaflets are normal. There is mild to moderate tricuspid regurgitation. The right ventricular systolic pressure is calculated at 31 mmHg. There is evidence of mild pulmonary hypertension. Pulmonic Valve: There is trace pulmonic regurgitation. Pericardium: There is no pericardial effusion. Aorta: There is no dilatation of the ascending aorta. There is no dilatation of the aortic root. Venous: The inferior vena cava appears normal in size. Measurements Chambers 2D Name Value Normal Range IVSd (2D) 0.81 cm (0.6 - 1.1) LVPWd (2D) 0.79 cm (0.6 - 1.1) LVIDd (2D) 4.22 cm (3.7 - 5.6) LVIDs (2D) 3.1 cm (2 - 3.8) LV FS (2D) 26.71 % - EF Teichholz (2D) 52.55 % - Ao root diameter (2D) 3.34 cm (2 - 3.7) Volumes/Mass Name Value Normal Range LA ESV SP 4CH (A/L) 10.87 ml - LA ESV SP 2CH (A/L) 18.74 ml - LA ESV BP (A/L) 16.38 ml - LA ESV BP (A/L) index 8.62 ml/m2 - LA ESV SP 4CH (MOD) 10.32 ml - LA ESV SP 2CH (MOD) 17.66 ml - LA ESV BP (MOD) 15.12 ml - LA ESV BP (MOD) index 7.96 ml/m2 - Diastolic/Systolic Function Name Value Normal Range MV E-wave Vmax 0.76 m/sec - MV deceleration time 133.63 msec - MV A-wave Vmax 1.1 m/sec - MV E:A ratio 0.69 ratio - Aortic Valve Name Value Normal Range AV Vmax 1.44 m/sec - AV VTI 22.94 cm - AV peak gradient 8.33 mmHg - AV mean gradient 4.73 mmHg - LVOT diameter 2.2 cm - LVOT Vmax 1.04 m/sec - LVOT VTI 18.88 cm - LVOT peak gradient 4.34 mmHg - LVOT mean gradient 2.31 mmHg - SV LVOT 72.05 ml - EVANGELISTA (continuity Vmax) 2.75 cm2 - EVANGELISTA (continuity VTI) 3.14 cm2 - Tricuspid Valve Name Value Normal Range TR Vmax 2.64 m/sec - TR peak gradient 28 mmHg - RAP 3 mmHg - RVSP 31 mmHg - Gupta/IV: Voiding Method Indwelling Catheter IV Catheter Type [Left Peripheral IV Antecubital] Active Medications - Current Medications Current Medications: Generic Name Dose Route Start Last Admin Trade Name Freq PRN Reason Stop Dose Admin Acetaminophen 650 mg 11/15/20 23:55 12/25/20 07:24 Acetaminophen 325 Mg Tab PO 650 mg Q4H PRN Administration Pain MILD(1-3)/Fever >100.5/BUTTS Lipase/Protease/Amylase 1 each 11/23/20 11:53 12/05/20 23:45 Lipase 10,500/Protease 25,000/Amylase 43,750 (Units) Dr Slater FEEDTUBE 1 each PRN PRN Administration For Clogged Feeding Tube Dextrose 25 ml 12/10/20 05:21 12/10/20 05:24 Dextrose 50% In Water (25gm) 50 Ml Syringe IV 25 ml Q30MIN PRN Administration Hypoglycemia Protocol Docusate Sodium 100 mg 12/23/20 10:00 12/24/20 23:25 Docusate Sodium 100 Mg/10 Ml Oral Liqd PO Not Given BID RAEANN Enoxaparin Sodium 40 mg 12/03/20 22:00 12/24/20 23:24 Enoxaparin 40 Mg/0.4 Ml Inj SUB-Q 40 mg QDAY@2200 RAEANN Administration Famotidine 20 mg 12/16/20 10:00 12/24/20 23:24 Famotidine 20 Mg Tab PO 20 mg BID RAEANN Administration Hydrophilic Ointment 1 applic 11/21/20 21:53 11/30/20 21:33 Lip Therapy Vaseline TP 1 applic Q2HR PRN Administration Dry Lips Midazolam HCl 100 mg/ Sodium 100 mls @ 2 mls/hr 11/21/20 22:00 12/25/20 02:12 Chloride IV 5 mg/hr TITR RAEANN 5 mls/hr Titration Protocol 2 MG/HR Norepinephrine 4 mg in 250 mls @ 7.5 mls/hr 11/22/20 17:00 12/25/20 05:47 Levophed Drip 4 Mg/Ns 250 Ml IV 20 mcg/min TITR RAEANN 75 mls/hr Titration Protocol 2 MCG/MIN Propofol 1,000 mg in 100 mls @ 2.175 mls/hr 11/27/20 12:00 12/25/20 02:33 Diprivan 10 Mg/Ml IV 20 mcg/kg/min TITR RAEANN 8.7 mls/hr Titration Protocol 5 MCG/KG/MIN Dexmedetomidine HCl 400 mcg/ 104 mls @ 4.441 mls/hr 12/10/20 13:00 12/25/20 07:24 Sodium Chloride IV 0.7 mcg/kg/hr TITRATE RAEANN 15.543 mls/hr Administration Protocol 0.2 MCG/KG/HR Fentanyl Citrate 2,000 mcg in 100 mls @ 3.9 mls/hr 12/18/20 19:00 12/25/20 02:11 Fentanyl Drip Premix IV 4 mcg/kg/hr TITR RAEANN 15.6 mls/hr Administration Protocol 1 MCG/KG/HR Ampicillin Sodium 2 gm in 100 mls @ 100 mls/hr 12/22/20 14:00 12/25/20 07:24 Ampicillin/Ns 2 Gm/100 Ml IV 01/04/21 20:59 100 mls/hr Q6H [facility] Administration Protocol Vasopressin 20 unit/ Sodium 101 mls @ 9.09 mls/hr 12/24/20 18:30 Chloride IV TITR RAEANN Protocol 0.03 UNITS/MIN Insulin Glargine 8 units 12/17/20 13:52 12/24/20 23:24 Insulin Glargine 100 Units/Ml SUB-Q 8 units QHS [facility] Administration Insulin Human Lispro 0 unit 11/22/20 06:00 12/25/20 05:47 Insulin Lispro 100 Unit/Ml SUB-Q Not Given Q6HR [facility] Protocol Metoclopramide HCl 10 mg 11/15/20 23:55 Metoclopramide 10 Mg/2 Ml Inj IV Q6H PRN Nausea And Vomiting Multi-Ingred Cream/Lotion/Oil/Oint 1 applic 11/21/20 21:53 Mineral Oil/Petrolatum, White Ophth Oint 3.5 Gm OU Q4HR PRN Dry Eye(s) Ondansetron HCl 4 mg 11/15/20 23:55 Ondansetron 4 Mg/2 Ml Inj IV Q8H PRN Nausea And Vomiting Polyethylene Glycol 17 gm 12/23/20 10:00 12/24/20 09:03 Polyethylene Glycol 3350 17 Gm Powder PO 17 gm QDAY RAEANN Administration Senna/Docusate Sodium 2 tab 12/21/20 14:00 12/25/20 05:48 Sennosides/Docusate Sodium 8.6/50 Mg Tab PO Not Given Q8HR RAEANN Simple Syrup 15 ml 11/23/20 11:53 Simple Syrup 15 Ml FEEDTUBE PRN PRN Hypoglycemia Simple Syrup 30 ml 11/23/20 11:53 Simple Syrup 15 Ml FEEDTUBE PRN PRN Hypoglycemia Sodium Bicarbonate 325 mg 11/23/20 11:53 12/05/20 23:46 Sodium Bicarbonate 325 Mg Tab FEEDTUBE 325 mg PRN PRN Administration For Clogged Feeding Tube Sodium Chloride 10 ml 11/16/20 10:00 12/24/20 23:25 Sodium Chloride 0.9% 10 Ml Flush Syringe IV Not Given BID RAEANN Sodium Chloride 10 ml 11/15/20 23:55 12/03/20 00:21 Sodium Chloride 0.9% 10 Ml Flush Syringe IV 10 ml PRN PRN Administration LINE FLUSH Nutrition/Malnutrition Assess - Dietary Evaluation Nutrition/Malnutrition Findings: Nutrition Notes Start: 11/20/20 12:03 Freq: Status: Active Protocol: Document 12/21/20 12:15 (Rec: 12/21/20 12:25 [id number]) Nutrition Notes Initial or Follow up Reassessment Current Diagnosis Diabetes,Sepsis,Respiratory Failure Other Pertinent Diagnosis Bilat pneu, COVID-19 (+) Current Diet Glucerna 1.2 at 60 ml/hr Labs/Tests Na 132 BG 207 Pertinent Medications Propofol Levophed Prednisone Senokot S Height 5 ft 6 in Weight 81.3 kg [place] Body Weight (kg) 64.54 BMI 28.9 Weight Status Overweight Subjective/Other Information FU for TF tolerance. Pt tolerating TF at goal. MD to increase Percent of energy/protein needs met: 100%/100% Burn Absent Trauma Absent GI Symptoms Last BM Difficulty In Swallowing,Chewing Current % PO Negligible Minimum of two criteria Yes Energy Intake (severe) < or equal to 50% Estimated Energy Requirement > or equal to 5 days Interpretation of Weight Loss (severe) >2% in 1 week Fluid Accumulation Moderate to Severe (severe) #3 Nutrition Diagnosis Inadequate oral intake Diagnosis Progress(for reassessment Continues documentation) #2 Nutrition Diagnosis Malnutrition Diagnosis Progress(for reassessment Continues documentation) #1 Nutrition Diagnosis Unintended weight loss Diagnosis Progress(for reassessment Continues documentation) Is patient on ventilator? Yes Is Patient Ambulatory and/or Out of Bed No REE-([facility]-confined to bed) 1895.496 Kcal/Kg value to use for calculation 22 Approximate Energy Requirements Using 1789 kcal/Kg Calculation Used for Recommendations [facility] Additional Notes Protein: 87-145 g/day (1.2-2g/ kg) Fluid: 1ml/kcal or per MD Nutrition Intervention Change Diet Order: Continue TF Nutrition Support: Glucerna 1.2 at 65 ml/hr. Flush 125 ml q4h Kcal 1,872 Protein (gm) 93 Fluid (mL) 1,255 Goal #1 Meet at least 75% of energy and protein needs via TF Goal #2 TF tolerance Anticipated Discharge Needs: Unable to determine at this time Follow-Up By: 12/25/20 Additional Comments FU for TF tolerance, BM
[2020-12-21] MEDS ORDERED: SODIUM CHLORIDE 0.9% 500 ML 500 ML ONE (17:41)
[2020-12-21 18:20] LABS: Bacteria,Urine 2+ /HPF (Negative); Bilirubin,Urine NEG (Negative); Blood,Urine NEG (Negative); Color,Urine Yellow (Yellow); Mucus,Urine 2+ /HPF; Protein,Urine <15 mg/dL mg/dL (Negative); Renal Epithelial Cells,Urine <1 /LPF; Urobilinogen,Urine < 2.0 mg/dL (<2.0)
[2020-12-21 18:25] LABS: RBC,Urine > 182.0 /HPF (0.0-6.0)
[2020-12-21] MEDS: INSULIN GLARGINE 100 UNITS/ML SUB-Q SCH (22:05)
[2020-12-21] MEDS: ENOXAPARIN 40 MG/0.4 ML INJ SUB-Q SCH (22:05)
[2020-12-22] MEDS: INSULIN LISPRO 100 UNIT/ML SUB-Q SCH ×5 (00:16→23:34)
[2020-12-22] MEDS: fentaNYL DRIP Premix 2,000 MCG/100 ML BAG IV SCH ×4 (00:28→19:39)
[2020-12-22] MEDS: NORepinephrine/NS 4 MG-250 ML 4 MG/250 ML BAG IV SCH ×3 (00:28→09:34)
[2020-12-22] MEDS: VANCOMYCIN 1,500 MG in SODIUM CHLORIDE 0.9% 500 ML 500 ML IV SCH (04:10)
[2020-12-22] MEDS: MIDAZOLAM 100 MG in SODIUM CHLORIDE 0.9% 80 ML IV SCH (05:59)
[2020-12-22] MEDS: SENNOSIDES/DOCUSATE SODIUM 8.6/50 MG TAB PO SCH ×3 (05:59→22:12)
[2020-12-22] MEDS: CEFEPIME/NS 2 GM/100 ML 2 GM/100 ML BAG IV SCH ×2 (06:21→13:13)
[2020-12-22] MEDS: predniSONE 10 MG TAB PO SCH (09:31)
[2020-12-22] MEDS: FAMOTIDINE 20 MG TAB PO SCH ×2 (09:34→22:12)
--- NOTE | 2020-12-22 10:48 | Progress Note ---
Assessment and Plan 59 y/o male with acute respiratory failure, abnormal CXR and abnormal lab studies. 12/22/20: Continue current level of sedation. Ok to wean FiO2 for sats >88% and PaO2>55mmHg. Follow up ID recs in regards to abx therapy. Prognosis unfortunately still remains guarded. 12/21/20: Back up to 100%. Peep is the same chest tubes intact. Long discussion on rounds, will restart Diprovan to obtain adequate sedation (RASS of -4). Ok to titrate pressors to achieve adequate sedation if blood pressure is compromised by sedatives. Prognosis remains guarded. Awaiting speciation of other cultures. 12/18/20: Still on 75% and 18 of PEEP. Follow up cultures, Blood pending, urine has not resulted yet. Had another temp at 20:00 last night. CXR looks more like pulmonary edema but not in a position to diurese at this time as he occasionally requires vasopressor support given the amount of sedation needed to achieve a RASS of 4. If he continues to spike, would consider hospital acquired coverage of abx therapy. Prognosis remains guarded. 12/17/20: Back down to 75%. Febrile last night, if and when spikes again today, please obtain blood cultures times 2 and urine. Will go ahead and order repeat CXR now. Prognosis still remains guarded. 12/16/20: Back up to 100%. Once stabilized will attempt to wean back down. ABG in the am and may need to consider repeat ABG later this afternoon pending clinical state. Unable to prone given bilateral chest tubes. Prognosis remains guarded to poor. 12/15/20: Tolerating weaning from yesterday. RT to attempt to wean some more today. Kidney function remains unchanged. Guarded prognosis. 12/14/20: Unable to wean FiO2 today. Continue supportive measures. Great that his kidney function has maintained but given the amount of oxygen he continues to require, his chances of recovery continue to decrease. Family aware and will up date them as needed. Very very guarded prognosis. 12/13/20: WIll start Weaning FiO2 again tomorrow morning of PaO2 remains this good. Continue all other supportive measures. Guarded prognosis. Monitor renal function closely. 12/12/20: Long discussion with brother at door. Patient remains full code which is not unreasonable but family is realistic about outcome being poor. Will continue all supportive measures. IF clinical state worsens, will ask family to come back to see patient. Guarded Prognosis. 12/11/20: Will attempt to wean Diprovan off and increase precedex. Triglycerides were ok. IF we have to support with pressors we will but I have asked nursing to please be detailed in their checkouts as to why they did certain things with the continuous drips. Continue supportive measures. Brother is going to try to come and see him from [place] 12/10/20: No acute events overnight. Patient has had waxing and waning of the amount of oxygen he has required over the last 24-72 hours. I have a bad fee ling that he is on the brink of cardiac arrest and this could happen at any moment. I am going to reach out to the brother today to explain to him my concerns. Patient is a full code. Very very guarded prognosis. 12/09/20: Repeat ABG later today. Wean FiO2 for sats >88%. Repeat CXR as well. With BP dropping could be relative adrenal insufficiency, will watch for now, however if pressor requirement increases would consider stress dose steroids and maybe volume replacement. Follow up cultures. Guarded prognosis. 12/08/20: Increase TV to 425. Drop FiO2 to 65% and wean for sats >88%. COntinue chest tubes. Change steroids to 20q12. 12/07/20: CXR is stable, no indication for another chest tube at this time. Will repeat ABG in 1 hour post change to 70% and wean accordingly. Dropping steroids to 20q8. Guarded prognosis. Same weaning parameters apply today as of 12/04/20 12/04/20: Continue to wean steroids to off. Continue to wean FiO2 for sats >88%. Keep PEEP at current level, would not feel comfortable weaning PEEP until FiO2 at 35-40%. Continue chest tubes to suction. PaO2 of >55, pH of >7.2 and sats >88% are acceptable. : Dropped steroids down to 40q8 and will start to wean from there. Continue to slowly wean FiO2 first, keep PEEP at current level. Spoke with Kehinde, please see my event note, who is the biological brother. He had no questions but thanked us for our care. Prognosis remains very very guarded. PaO2 of 55 and pH of >7.2 and sats of >88% are all acceptable. 12/02/20: Wean FiO2 for sats >88% and PaO2 >55. Unable to prone currently secondary to bilateral chest tubes. COntinue high dose steroids. CM To figure out who is the immediate next of kin that can make decisions and then we will discuss the current clinical situation with them. 12/01/20: Continue PEEP and FiO2 elevated to keep sats >88% and PaO2 >55. Small lung volumes and high PEEP. very very guarded prognosis. 11/30/20: Worsening hypoxemia. Chest tubes stable. Likely just worsening disease. Unable to prone now. Increase PEEP to 18 and FiO2 back up to 100. Continue 3 sedatives for RASS of -2. Obtain 12 lead to look at T waves as K was only 4.6 on yesterday. Guarded, guarded prognosis 11/29/20: Second chest tube in on yesterday. CXR is stable. ABG unchanged. Will likely increase PEEP now that chest tubes are in. No further paralytics. Still making good urine. Prognosis remains guarded. Will check chemistry to assess Potassium levels given peaked t's seen on monitor. 11/28/20: Second chest tube today. Once chest tube in, will likely increase PEEP to 18 and repeat gas about 2 hours after this. Continue paralytic today. No proning now that patient will have bilateral chest tubes. VEry guarded prognosis. 11/27/20: Spoke with surgery who have agreed to evaluate and placed chest tube on either right or left side pending CXR reading. Will monitor for 36-48 hours and if no resolution, will need chest tube placed on opposite side as well. Once placed, will likely paralyze again but hold on proning for now. Guarded prognosis. 11/26/20: Paralytics are off. Continue current level of sedation. Will prone for 12 hours today and repeat ABG in the am. Continue lung protective strategy. Guarded prognosis. 11/25/20: Prone again to 16 hours, will prone at 12-12:30. Continue paralytics for 24 more hours. Discussed the idea of permissive hypercapnea again today and as long as pH is above 7.2 no changes should be made to TV and or RR without discussing with physician. Continue to monitor urine output, guarded prognosis. Hold on lasix therapy today. 11/24/20: Prone again today. Will try 48 hours of paralyzing the patient to see if this will help with oxygenation. Will speak with RT's about permissive hypercapnea and that pH's of 7.2 and greater are ok. Continue high doses steroids. Prognosis is still very very guarded. If not improvement with paralytics, will attempt transfer. 11/23/20: Prone again today for 12 hours. Continue High Dose steroids. Hold on lasix given marginal BP's. Prognosis is very very guarded to poor. Will continue all supportive measures. If not able to wean from 100%, will attempt transfer for ECMO. 11/20/20: WIll change to solumedrol 60q6 today. Hold on lasix today. Given his increasing oxygen requirement, will likely end up intubated. OVerall prognosis is very poor. 11/19/20: lasix 40mg IV x1 today. Will speak with ID but may consider increasing steroids to see if this will help with oxygenation. Continue Remdesivir. Prognosis remains guarded. 11/18/20: Continue bipap, goal is to attempt to prevent prolong intubation for as long as possible. Lasix again today. Steroids and Remdesivir. Guarded Prognosis. 11/17/20: Continue bipap therapy. Monitor mental state. High risk for Intubation. Continue BID anticoagulation. Prone if able. BNP was elevated but not grossly elevated. Will still give lasix with hopes of achieving net negative state. STeroids and remdesivir. Overall prognosis is guarded, extremely guarded. 1. Pulm- Agree with concern for covid. Agree with empiric abx but procal is only mildly elevated. Await cultures. Continue bipap therapy for now but will need to monitor closely. [facility] has ordered CTA, but I spoke with pharmacy and we will empirically treat with BID lovenox therapy. COntinue empiric steroid therapy for COVID until studies back. Not sure that he will be able to prone on bipap therapy. Monitor volume status and run as dry as possible. 2. Renal-normal function but all electrolytes abnormal. HYponatremia and Hypochloremia volume up vs volume down. Sent BNP. Would suggest obtaning echo as well. Not sure what to make of elevated lactate unless that is from increased work of breathing or damage to other tissue unknown. May need to check LFT's and Coags as well. 3. Guarded Prognosis. CCT 31 minutes. Subjective Date of service: 12/22/20 Principal diagnosis: COVID-19 Interval history: Oxygenation is better with improved sedation. ONly on 8 of levo and urine out put remains good. Enterococcus in blood but penicilin sensitive Objective Vital Signs - 12hr 12/21/20 12/21/20 12/21/20 23:00 23:15 23:31 Temperature Pulse Rate 72 73 75 Respiratory 30 H 30 H 29 H Rate Blood Pressure 125/72 123/69 93/45 O2 Sat by Pulse 99 98 99 Oximetry 12/21/20 12/21/20 12/22/20 23:45 23:47 00:00 Temperature 98.8 F Pulse Rate 72 70 71 Respiratory 30 H 30 H 30 H Rate Blood Pressure 116/67 116/67 126/73 O2 Sat by Pulse 99 99 100 Oximetry 12/22/20 12/22/20 12/22/20 00:02 00:15 00:30 Temperature Pulse Rate 72 71 70 Respiratory 30 H 30 H Rate Blood Pressure 126/73 98/53 125/71 O2 Sat by Pulse 99 98 100 Oximetry 12/22/20 12/22/20 12/22/20 00:45 01:00 01:15 Temperature Pulse Rate 70 67 70 Respiratory 30 H 30 H 30 H Rate Blood Pressure 117/65 120/63 114/65 O2 Sat by Pulse 100 95 99 Oximetry 12/22/20 12/22/20 12/22/20 01:31 01:45 02:00 Temperature Pulse Rate 79 67 70 Respiratory 30 H 30 H 30 H Rate Blood Pressure 81/39 124/72 119/68 O2 Sat by Pulse 98 100 100 Oximetry 12/22/20 12/22/20 12/22/20 02:15 02:30 02:45 Temperature Pulse Rate 77 69 70 Respiratory 30 H 30 H 30 H Rate Blood Pressure 125/63 118/65 107/59 O2 Sat by Pulse 94 99 99 Oximetry 12/22/20 12/22/20 12/22/20 03:00 03:15 03:30 Temperature Pulse Rate 69 70 69 Respiratory 30 H 30 H 30 H Rate Blood Pressure 111/65 107/60 108/60 O2 Sat by Pulse 100 100 100 Oximetry 12/22/20 12/22/20 12/22/20 03:33 03:45 04:00 Temperature 98.6 F Pulse Rate 67 69 Respiratory 30 H 30 H Rate Blood Pressure 112/64 112/64 O2 Sat by Pulse 100 100 Oximetry 12/22/20 12/22/20 12/22/20 04:15 04:30 04:45 Temperature Pulse Rate 69 69 67 Respiratory 30 H 30 H 30 H Rate Blood Pressure 110/66 114/66 110/62 O2 Sat by Pulse 100 99 100 Oximetry 12/22/20 12/22/20 12/22/20 05:00 05:06 05:15 Temperature Pulse Rate 69 67 67 Respiratory 30 H 30 H Rate Blood Pressure 118/67 118/67 114/67 O2 Sat by Pulse 100 100 100 Oximetry 12/22/20 12/22/20 12/22/20 05:30 05:45 06:00 Temperature Pulse Rate 71 68 70 Respiratory 30 H 30 H 30 H Rate Blood Pressure 110/59 112/65 110/66 O2 Sat by Pulse 97 100 100 Oximetry 12/22/20 12/22/20 12/22/20 06:15 06:30 06:45 Temperature Pulse Rate 82 75 75 Respiratory 29 H 30 H 30 H Rate Blood Pressure 115/72 111/60 116/66 O2 Sat by Pulse 94 97 97 Oximetry 12/22/20 12/22/20 12/22/20 07:00 07:15 07:30 Temperature Pulse Rate 73 72 74 Respiratory 30 H 30 H 30 H Rate Blood Pressure 118/67 119/68 120/66 O2 Sat by Pulse 97 98 96 Oximetry 12/22/20 12/22/20 12/22/20 07:45 07:46 08:00 Temperature 98.9 F Pulse Rate 77 77 76 Respiratory 30 H 30 H Rate Blood Pressure 111/62 111/62 114/63 O2 Sat by Pulse 99 98 99 Oximetry 12/22/20 12/22/20 12/22/20 08:15 08:30 08:45 Temperature Pulse Rate 75 74 75 Respiratory 30 H 30 H 30 H Rate Blood Pressure 112/62 111/65 110/62 O2 Sat by Pulse 99 99 99 Oximetry 12/22/20 12/22/20 12/22/20 09:00 09:15 09:30 Temperature Pulse Rate 83 76 84 Respiratory 30 H 30 H 30 H Rate Blood Pressure 111/67 119/65 97/54 O2 Sat by Pulse 98 99 98 Oximetry 12/22/20 09:45 Temperature Pulse Rate 82 Respiratory 30 H Rate Blood Pressure 122/64 O2 Sat by Pulse 96 Oximetry Constitutional: other (on vent orally intubated) ENT: other (Now intubated) Ascultation: Bilateral: rales, rhonchi, other (coarse BS bilaterally) Percussion: Bilateral: not dull Cardiovascular: regular rate and rhythm (no mrg) Gastrointestinal: normoactive bowel sounds, soft, non-tender, non-distended Integumentary: normal Extremities: no cyanosis, no edema, pink and warm Neurologic: other (sedated) Psychiatric: other (sedated) CBC and BMP: 12/20/20 04:00 12/21/20 09:57 ABG, PT/INR, D-dimer: ABG ABG pH 7.406 (7.320-7.450) 12/22/20 04:08 POC ABG pCO2 67.6 mmHg (32.0-48.0) H 12/22/20 04:08 ABG pCO2 81.3 mm Hg 12/08/20 04:12 POC ABG pO2 57.3 mmHg (83-108) L 12/22/20 04:08 ABG pO2 69.7 mm Hg (80.0-90.0) L 12/08/20 04:12 POC ABG HCO3 41.5 12/22/20 04:08 ABG O2 Saturation 95.4 % (95.0-99.0) 12/08/20 04:12 PT/INR, D-dimer D-Dimer 926.11 ng/mlDDU (0-234) H 11/26/20 06:04 Abnormal lab findings: Abnormal Labs 11/15/20 11/15/20 11/15/20 10:39 10:39 10:39 WBC 14.3 H RBC 5.17 H Hgb Hct RDW Plt Count Lymph % (Auto) 7.8 L [place] % (Auto) 7.6 H Lymph # (Auto) 1.1 L [place] # (Auto) 1.1 H Baso # (Auto) Seg Neutrophils % 83.3 H Seg Neuts % (Manual) Lymphocytes % (Manual) Seg Neutrophils # 11.9 H Seg Neutrophils # Man Lymphocytes # (Manual) D-Dimer ABG pH POC ABG pCO2 POC ABG pO2 ABG pO2 ABG HCO3 ABG O2 Saturation ABG Base Excess ABG Hemoglobin ABG Oxyhemoglobin ABG Sodium ABG Potassium ABG Chloride ABG Glucose Oxyhemoglobin Carboxyhemoglobin Sodium 128 L Potassium Chloride 96.0 L Carbon Dioxide BUN Creatinine 0.7 L Glucose 238 H POC Glucose Hemoglobin A1c Lactic Acid 4.10 H* Calcium 7.0 L Magnesium Ferritin Total Bilirubin 1.40 H AST 49 H ALT 70 H Alkaline Phosphatase Lactate Dehydrogenase 663 H Total Creatine Kinase C-Reactive Protein 19.80 H Total Protein Albumin 2.9 L Triglycerides Arterial Blood Glucose Arterial Blood Ionized Calcium Ur Specific [place] Urine WBC (Auto) Vancomycin Trough Coronavirus (PCR) 11/15/20 11/15/20 11/15/20 10:39 10:39 11:20 WBC RBC Hgb Hct RDW Plt Count Lymph % (Auto) [place] % (Auto) Lymph # (Auto) [place] # (Auto) Baso # (Auto) Seg Neutrophils % Seg Neuts % (Manual) Lymphocytes % (Manual) Seg Neutrophils # Seg Neutrophils # Man Lymphocytes # (Manual) D-Dimer > 94064 H ABG pH POC ABG pCO2 29.9 L POC ABG pO2 137.3 H ABG pO2 ABG HCO3 ABG O2 Saturation ABG Base Excess ABG Hemoglobin ABG Oxyhemoglobin ABG Sodium 126.5 L ABG Potassium ABG Chloride ABG Glucose 248 H Oxyhemoglobin Carboxyhemoglobin Sodium Potassium Chloride Carbon Dioxide BUN Creatinine Glucose POC Glucose Hemoglobin A1c Lactic Acid Calcium Magnesium Ferritin 672.8 H Total Bilirubin AST ALT Alkaline Phosphatase Lactate Dehydrogenase Total Creatine Kinase C-Reactive Protein Total Protein Albumin Triglycerides Arterial Blood Glucose 248 H Arterial Blood Ionized Calcium 4.1 L Ur Specific [place] Urine WBC (Auto) Vancomycin Trough Coronavirus (PCR) 11/15/20 11/15/20 11/16/20 13:41 23:41 01:45 WBC RBC Hgb Hct RDW Plt Count Lymph % (Auto) [place] % (Auto) Lymph # (Auto) [place] # (Auto) Baso # (Auto) Seg Neutrophils % Seg Neuts % (Manual) Lymphocytes % (Manual) Seg Neutrophils # Seg Neutrophils # Man Lymphocytes # (Manual) D-Dimer ABG pH POC ABG pCO2 POC ABG pO2 ABG pO2 ABG HCO3 ABG O2 Saturation ABG Base Excess ABG Hemoglobin ABG Oxyhemoglobin ABG Sodium ABG Potassium ABG Chloride ABG Glucose Oxyhemoglobin Carboxyhemoglobin Sodium Potassium Chloride Carbon Dioxide BUN Creatinine Glucose POC Glucose 284 H Hemoglobin A1c Lactic Acid 2.30 H* Calcium Magnesium Ferritin Total Bilirubin AST ALT Alkaline Phosphatase Lactate Dehydrogenase Total Creatine Kinase C-Reactive Protein Total Protein Albumin Triglycerides Arterial Blood Glucose Arterial Blood Ionized Calcium Ur Specific [place] 1.037 H Urine WBC (Auto) Vancomycin Trough Coronavirus (PCR) 11/16/20 11/16/20 11/16/20 05:29 05:29 05:29 WBC 12.9 H RBC Hgb Hct RDW Plt Count Lymph % (Auto) 4.5 L [place] % (Auto) Lymph # (Auto) 0.6 L [place] # (Auto) Baso # (Auto) 0.2 H Seg Neutrophils % 89.8 H Seg Neuts % (Manual) Lymphocytes % (Manual) Seg Neutrophils # 11.5 H Seg Neutrophils # Man Lymphocytes # (Manual) D-Dimer ABG pH POC ABG pCO2 POC ABG pO2 ABG pO2 ABG HCO3 ABG O2 Saturation ABG Base Excess ABG Hemoglobin ABG Oxyhemoglobin ABG Sodium ABG Potassium ABG Chloride ABG Glucose Oxyhemoglobin Carboxyhemoglobin Sodium 131 L Potassium Chloride Carbon Dioxide 21 L BUN 23 H Creatinine 0.6 L Glucose 342 H POC Glucose Hemoglobin A1c Lactic Acid 2.60 H* Calcium 7.0 L Magnesium Ferritin Total Bilirubin AST ALT Alkaline Phosphatase Lactate Dehydrogenase Total Creatine Kinase C-Reactive Protein Total Protein Albumin 2.4 L Triglycerides Arterial Blood Glucose Arterial Blood Ionized Calcium Ur Specific [place] Urine WBC (Auto) Vancomycin Trough Coronavirus (PCR) 11/16/20 11/16/20 11/16/20 05:29 08:11 12:11 WBC RBC Hgb Hct RDW Plt Count Lymph % (Auto) [place] % (Auto) Lymph # (Auto) [place] # (Auto) Baso # (Auto) Seg Neutrophils % Seg Neuts % (Manual) Lymphocytes % (Manual) Seg Neutrophils # Seg Neutrophils # Man Lymphocytes # (Manual) D-Dimer ABG pH POC ABG pCO2 POC ABG pO2 ABG pO2 ABG HCO3 ABG O2 Saturation ABG Base Excess ABG Hemoglobin ABG Oxyhemoglobin ABG Sodium ABG Potassium ABG Chloride ABG Glucose Oxyhemoglobin Carboxyhemoglobin Sodium Potassium Chloride Carbon Dioxide BUN Creatinine Glucose POC Glucose 329 H 320 H Hemoglobin A1c 11.7 H Lactic Acid Calcium Magnesium Ferritin Total Bilirubin AST ALT Alkaline Phosphatase Lactate Dehydrogenase Total Creatine Kinase C-Reactive Protein Total Protein Albumin Triglycerides Arterial Blood Glucose Arterial Blood Ionized Calcium Ur Specific [place] Urine WBC (Auto) Vancomycin Trough Coronavirus (PCR) 11/16/20 11/16/20 11/16/20 16:13 21:29 Unknown WBC RBC Hgb Hct RDW Plt Count Lymph % (Auto) [place] % (Auto) Lymph # (Auto) [place] # (Auto) Baso # (Auto) Seg Neutrophils % Seg Neuts % (Manual) Lymphocytes % (Manual) Seg Neutrophils # Seg Neutrophils # Man Lymphocytes # (Manual) D-Dimer ABG pH POC ABG pCO2 POC ABG pO2 ABG pO2 ABG HCO3 ABG O2 Saturation ABG Base Excess ABG Hemoglobin ABG Oxyhemoglobin ABG Sodium ABG Potassium ABG Chloride ABG Glucose Oxyhemoglobin Carboxyhemoglobin Sodium Potassium Chloride Carbon Dioxide BUN Creatinine Glucose POC Glucose 257 H 376 H Hemoglobin A1c Lactic Acid Calcium Magnesium Ferritin Total Bilirubin AST ALT Alkaline Phosphatase Lactate Dehydrogenase Total Creatine Kinase C-Reactive Protein Total Protein Albumin Triglycerides Arterial Blood Glucose Arterial Blood Ionized Calcium Ur Specific [place] Urine WBC (Auto) Vancomycin Trough Coronavirus (PCR) Positive A 11/17/20 11/17/20 11/17/20 07:42 12:07 17:25 WBC RBC Hgb Hct RDW Plt Count Lymph % (Auto) [place] % (Auto) Lymph # (Auto) [place] # (Auto) Baso # (Auto) Seg Neutrophils % Seg Neuts % (Manual) Lymphocytes % (Manual) Seg Neutrophils # Seg Neutrophils # Man Lymphocytes # (Manual) D-Dimer ABG pH POC ABG pCO2 POC ABG pO2 ABG pO2 ABG HCO3 ABG O2 Saturation ABG Base Excess ABG Hemoglobin ABG Oxyhemoglobin ABG Sodium ABG Potassium ABG Chloride ABG Glucose Oxyhemoglobin Carboxyhemoglobin Sodium Potassium Chloride Carbon Dioxide BUN Creatinine Glucose POC Glucose 231 H 380 H 302 H Hemoglobin A1c Lactic Acid Calcium Magnesium Ferritin Total Bilirubin AST ALT Alkaline Phosphatase Lactate Dehydrogenase Total Creatine Kinase C-Reactive Protein Total Protein Albumin Triglycerides Arterial Blood Glucose Arterial Blood Ionized Calcium Ur Specific [place] Urine WBC (Auto) Vancomycin Trough Coronavirus (PCR) 11/17/20 11/18/20 11/18/20 21:53 04:25 07:45 WBC RBC Hgb Hct RDW Plt Count Lymph % (Auto) [place] % (Auto) Lymph # (Auto) [place] # (Auto) Baso # (Auto) Seg Neutrophils % Seg Neuts % (Manual) Lymphocytes % (Manual) Seg Neutrophils # Seg Neutrophils # Man Lymphocytes # (Manual) D-Dimer ABG pH POC ABG pCO2 POC ABG pO2 ABG pO2 ABG HCO3 ABG O2 Saturation ABG Base Excess ABG Hemoglobin ABG Oxyhemoglobin ABG Sodium ABG Potassium ABG Chloride ABG Glucose Oxyhemoglobin Carboxyhemoglobin Sodium 136 L Potassium Chloride Carbon Dioxide BUN 24 H Creatinine 0.6 L Glucose 212 H POC Glucose 293 H 216 H Hemoglobin A1c Lactic Acid Calcium 7.4 L Magnesium Ferritin Total Bilirubin AST 41 H ALT Alkaline Phosphatase 142 H Lactate Dehydrogenase Total Creatine Kinase C-Reactive Protein Total Protein Albumin 2.3 L Triglycerides Arterial Blood Glucose Arterial Blood Ionized Calcium Ur Specific [place] Urine WBC (Auto) Vancomycin Trough Coronavirus (PCR) 11/18/20 11/18/20 11/18/20 12:28 15:58 21:37 WBC RBC Hgb Hct RDW Plt Count Lymph % (Auto) [place] % (Auto) Lymph # (Auto) [place] # (Auto) Baso # (Auto) Seg Neutrophils % Seg Neuts % (Manual) Lymphocytes % (Manual) Seg Neutrophils # Seg Neutrophils # Man Lymphocytes # (Manual) D-Dimer ABG pH POC ABG pCO2 POC ABG pO2 ABG pO2 ABG HCO3 ABG O2 Saturation ABG Base Excess ABG Hemoglobin ABG Oxyhemoglobin ABG Sodium ABG Potassium ABG Chloride ABG Glucose Oxyhemoglobin Carboxyhemoglobin Sodium Potassium Chloride Carbon Dioxide BUN Creatinine Glucose POC Glucose 165 H 220 H 311 H Hemoglobin A1c Lactic Acid Calcium Magnesium Ferritin Total Bilirubin AST ALT Alkaline Phosphatase Lactate Dehydrogenase Total Creatine Kinase C-Reactive Protein Total Protein Albumin Triglycerides Arterial Blood Glucose Arterial Blood Ionized Calcium Ur Specific [place] Urine WBC (Auto) Vancomycin Trough Coronavirus (PCR) 11/19/20 11/19/20 11/19/20 05:35 07:40 12:39 WBC RBC Hgb Hct RDW Plt Count Lymph % (Auto) [place] % (Auto) Lymph # (Auto) [place] # (Auto) Baso # (Auto) Seg Neutrophils % Seg Neuts % (Manual) Lymphocytes % (Manual) Seg Neutrophils # Seg Neutrophils # Man Lymphocytes # (Manual) D-Dimer ABG pH POC ABG pCO2 POC ABG pO2 ABG pO2 ABG HCO3 ABG O2 Saturation ABG Base Excess ABG Hemoglobin ABG Oxyhemoglobin ABG Sodium ABG Potassium ABG Chloride ABG Glucose Oxyhemoglobin Carboxyhemoglobin Sodium 132 L Potassium Chloride Carbon Dioxide BUN 25 H Creatinine 0.5 L Glucose 179 H POC Glucose 149 H 306 H Hemoglobin A1c Lactic Acid Calcium 7.5 L Magnesium Ferritin Total Bilirubin AST ALT Alkaline Phosphatase 139 H Lactate Dehydrogenase Total Creatine Kinase C-Reactive Protein Total Protein Albumin 2.4 L Triglycerides Arterial Blood Glucose Arterial Blood Ionized Calcium Ur Specific [place] Urine WBC (Auto) Vancomycin Trough Coronavirus (PCR) 11/19/20 11/19/20 11/20/20 16:17 21:25 08:30 WBC RBC Hgb Hct RDW Plt Count Lymph % (Auto) [place] % (Auto) Lymph # (Auto) [place] # (Auto) Baso # (Auto) Seg Neutrophils % Seg Neuts % (Manual) Lymphocytes % (Manual) Seg Neutrophils # Seg Neutrophils # Man Lymphocytes # (Manual) D-Dimer ABG pH POC ABG pCO2 POC ABG pO2 ABG pO2 ABG HCO3 ABG O2 Saturation ABG Base Excess ABG Hemoglobin ABG Oxyhemoglobin ABG Sodium ABG Potassium ABG Chloride ABG Glucose Oxyhemoglobin Carboxyhemoglobin Sodium Potassium Chloride Carbon Dioxide BUN Creatinine Glucose POC Glucose 364 H 347 H 141 H Hemoglobin A1c Lactic Acid Calcium Magnesium Ferritin Total Bilirubin AST ALT Alkaline Phosphatase Lactate Dehydrogenase Total Creatine Kinase C-Reactive Protein Total Protein Albumin Triglycerides Arterial Blood Glucose Arterial Blood Ionized Calcium Ur Specific [place] Urine WBC (Auto) Vancomycin Trough Coronavirus (PCR) 11/20/20 11/20/20 11/20/20 08:50 11:32 16:19 WBC RBC Hgb Hct RDW Plt Count Lymph % (Auto) [place] % (Auto) Lymph # (Auto) [place] # (Auto) Baso # (Auto) Seg Neutrophils % Seg Neuts % (Manual) Lymphocytes % (Manual) Seg Neutrophils # Seg Neutrophils # Man Lymphocytes # (Manual) D-Dimer ABG pH POC ABG pCO2 POC ABG pO2 ABG pO2 ABG HCO3 ABG O2 Saturation ABG Base Excess ABG Hemoglobin ABG Oxyhemoglobin ABG Sodium ABG Potassium ABG Chloride ABG Glucose Oxyhemoglobin Carboxyhemoglobin Sodium 132 L Potassium Chloride 97.6 L Carbon Dioxide BUN 26 H Creatinine 0.5 L Glucose 201 H POC Glucose 296 H 327 H Hemoglobin A1c Lactic Acid Calcium 7.9 L Magnesium Ferritin Total Bilirubin AST ALT Alkaline Phosphatase 137 H Lactate Dehydrogenase Total Creatine Kinase C-Reactive Protein Total Protein Albumin 2.6 L Triglycerides Arterial Blood Glucose Arterial Blood Ionized Calcium Ur Specific [place] Urine WBC (Auto) Vancomycin Trough Coronavirus (PCR) 11/20/20 11/21/20 11/21/20 22:09 07:59 13:51 WBC RBC Hgb Hct RDW Plt Count Lymph % (Auto) [place] % (Auto) Lymph # (Auto) [place] # (Auto) Baso # (Auto) Seg Neutrophils % Seg Neuts % (Manual) Lymphocytes % (Manual) Seg Neutrophils # Seg Neutrophils # Man Lymphocytes # (Manual) D-Dimer ABG pH POC ABG pCO2 POC ABG pO2 ABG pO2 ABG HCO3 ABG O2 Saturation ABG Base Excess ABG Hemoglobin ABG Oxyhemoglobin ABG Sodium ABG Potassium ABG Chloride ABG Glucose Oxyhemoglobin Carboxyhemoglobin Sodium Potassium Chloride Carbon Dioxide BUN Creatinine Glucose POC Glucose 311 H 218 H 304 H Hemoglobin A1c Lactic Acid Calcium Magnesium Ferritin Total Bilirubin AST ALT Alkaline Phosphatase Lactate Dehydrogenase Total Creatine Kinase C-Reactive Protein Total Protein Albumin Triglycerides Arterial Blood Glucose Arterial Blood Ionized Calcium Ur Specific [place] Urine WBC (Auto) Vancomycin Trough Coronavirus (PCR) 11/21/20 11/21/20 11/21/20 16:09 21:34 23:00 WBC RBC Hgb Hct RDW Plt Count Lymph % (Auto) [place] % (Auto) Lymph # (Auto) [place] # (Auto) Baso # (Auto) Seg Neutrophils % Seg Neuts % (Manual) Lymphocytes % (Manual) Seg Neutrophils # Seg Neutrophils # Man Lymphocytes # (Manual) D-Dimer ABG pH 7.206 L POC ABG pCO2 59.3 H POC ABG pO2 76.7 L ABG pO2 ABG HCO3 ABG O2 Saturation ABG Base Excess ABG Hemoglobin ABG Oxyhemoglobin ABG Sodium 133.1 L ABG Potassium ABG Chloride ABG Glucose 320 H Oxyhemoglobin Carboxyhemoglobin Sodium Potassium Chloride Carbon Dioxide BUN Creatinine Glucose POC Glucose 239 H 279 H Hemoglobin A1c Lactic Acid Calcium Magnesium Ferritin Total Bilirubin AST ALT Alkaline Phosphatase Lactate Dehydrogenase Total Creatine Kinase C-Reactive Protein Total Protein Albumin Triglycerides Arterial Blood Glucose 320 H Arterial Blood Ionized Calcium Ur Specific [place] Urine WBC (Auto) Vancomycin Trough Coronavirus (PCR) 11/22/20 11/22/20 11/22/20 04:52 04:52 04:52 WBC RBC Hgb Hct RDW Plt Count Lymph % (Auto) [place] % (Auto) Lymph # (Auto) [place] # (Auto) Baso # (Auto) Seg Neutrophils % Seg Neuts % (Manual) Lymphocytes % (Manual) Seg Neutrophils # Seg Neutrophils # Man Lymphocytes # (Manual) D-Dimer 1858.36 H ABG pH POC ABG pCO2 POC ABG pO2 ABG pO2 ABG HCO3 ABG O2 Saturation ABG Base Excess ABG Hemoglobin ABG Oxyhemoglobin ABG Sodium ABG Potassium ABG Chloride ABG Glucose Oxyhemoglobin Carboxyhemoglobin Sodium Potassium Chloride Carbon Dioxide BUN Creatinine Glucose POC Glucose Hemoglobin A1c Lactic Acid Calcium Magnesium Ferritin 734.2 H Total Bilirubin AST ALT Alkaline Phosphatase Lactate Dehydrogenase 404 H Total Creatine Kinase C-Reactive Protein 2.80 H Total Protein Albumin Triglycerides Arterial Blood Glucose Arterial Blood Ionized Calcium Ur Specific [place] Urine WBC (Auto) Vancomycin Trough Coronavirus (PCR) 11/22/20 11/22/20 11/22/20 05:12 05:39 11:50 WBC RBC Hgb Hct RDW Plt Count Lymph % (Auto) [place] % (Auto) Lymph # (Auto) [place] # (Auto) Baso # (Auto) Seg Neutrophils % Seg Neuts % (Manual) Lymphocytes % (Manual) Seg Neutrophils # Seg Neutrophils # Man Lymphocytes # (Manual) D-Dimer ABG pH POC ABG pCO2 POC ABG pO2 51.0 L ABG pO2 ABG HCO3 ABG O2 Saturation ABG Base Excess ABG Hemoglobin ABG Oxyhemoglobin ABG Sodium 131.2 L ABG Potassium 4.6 H ABG Chloride ABG Glucose 317 H Oxyhemoglobin Carboxyhemoglobin Sodium Potassium Chloride Carbon Dioxide BUN Creatinine Glucose POC Glucose 340 H 417 H Hemoglobin A1c Lactic Acid Calcium Magnesium Ferritin Total Bilirubin AST ALT Alkaline Phosphatase Lactate Dehydrogenase Total Creatine Kinase C-Reactive Protein Total Protein Albumin Triglycerides Arterial Blood Glucose 317 H Arterial Blood Ionized Calcium 4.4 L Ur Specific [place] Urine WBC (Auto) Vancomycin Trough Coronavirus (PCR) 11/22/20 11/22/20 11/22/20 12:22 12:22 17:10 WBC 14.4 H RBC Hgb Hct RDW Plt Count Lymph % (Auto) [place] % (Auto) Lymph # (Auto) [place] # (Auto) Baso # (Auto) Seg Neutrophils % Seg Neuts % (Manual) 98.0 H Lymphocytes % (Manual) Seg Neutrophils # Seg Neutrophils # Man 14.1 H Lymphocytes # (Manual) 0.0 L D-Dimer ABG pH POC ABG pCO2 POC ABG pO2 ABG pO2 ABG HCO3 ABG O2 Saturation ABG Base Excess ABG Hemoglobin ABG Oxyhemoglobin ABG Sodium ABG Potassium ABG Chloride ABG Glucose Oxyhemoglobin Carboxyhemoglobin Sodium 132 L Potassium Chloride Carbon Dioxide BUN 36 H Creatinine 0.6 L Glucose 219 H POC Glucose 157 H Hemoglobin A1c Lactic Acid Calcium 7.2 L Magnesium Ferritin Total Bilirubin AST ALT Alkaline Phosphatase Lactate Dehydrogenase Total Creatine Kinase C-Reactive Protein Total Protein Albumin Triglycerides Arterial Blood Glucose Arterial Blood Ionized Calcium Ur Specific [place] Urine WBC (Auto) Vancomycin Trough Coronavirus (PCR) 11/22/20 11/22/20 11/22/20 18:33 21:44 23:47 WBC RBC Hgb Hct RDW Plt Count Lymph % (Auto) [place] % (Auto) Lymph # (Auto) [place] # (Auto) Baso # (Auto) Seg Neutrophils % Seg Neuts % (Manual) Lymphocytes % (Manual) Seg Neutrophils # Seg Neutrophils # Man Lymphocytes # (Manual) D-Dimer ABG pH POC ABG pCO2 POC ABG pO2 60.8 L ABG pO2 ABG HCO3 ABG O2 Saturation ABG Base Excess ABG Hemoglobin ABG Oxyhemoglobin 88.1 L ABG Sodium 135.1 L ABG Potassium ABG Chloride ABG Glucose 141 H Oxyhemoglobin Carboxyhemoglobin Sodium Potassium Chloride Carbon Dioxide BUN Creatinine Glucose POC Glucose 117 H 123 H Hemoglobin A1c Lactic Acid Calcium Magnesium Ferritin Total Bilirubin AST ALT Alkaline Phosphatase Lactate Dehydrogenase Total Creatine Kinase C-Reactive Protein Total Protein Albumin Triglycerides Arterial Blood Glucose 141 H Arterial Blood Ionized Calcium Ur Specific [place] Urine WBC (Auto) Vancomycin Trough Coronavirus (PCR) 11/23/20 11/23/20 11/23/20 04:00 04:00 05:23 WBC 14.4 H RBC Hgb Hct RDW Plt Count Lymph % (Auto) [place] % (Auto) Lymph # (Auto) [place] # (Auto) Baso # (Auto) Seg Neutrophils % Seg Neuts % (Manual) Lymphocytes % (Manual) Seg Neutrophils # Seg Neutrophils # Man Lymphocytes # (Manual) D-Dimer ABG pH POC ABG pCO2 POC ABG pO2 ABG pO2 ABG HCO3 ABG O2 Saturation ABG Base Excess ABG Hemoglobin ABG Oxyhemoglobin ABG Sodium ABG Potassium ABG Chloride ABG Glucose Oxyhemoglobin Carboxyhemoglobin Sodium 136 L Potassium Chloride Carbon Dioxide BUN 33 H Creatinine 0.6 L Glucose 115 H POC Glucose 173 H Hemoglobin A1c Lactic Acid Calcium 7.1 L Magnesium Ferritin Total Bilirubin AST 64 H ALT 75 H Alkaline Phosphatase Lactate Dehydrogenase Total Creatine Kinase C-Reactive Protein Total Protein 5.9 L D Albumin 2.4 L Triglycerides Arterial Blood Glucose Arterial Blood Ionized Calcium Ur Specific [place] Urine WBC (Auto) Vancomycin Trough Coronavirus (PCR) 11/23/20 11/23/20 11/23/20 05:40 11:27 17:10 WBC RBC Hgb Hct RDW Plt Count Lymph % (Auto) [place] % (Auto) Lymph # (Auto) [place] # (Auto) Baso # (Auto) Seg Neutrophils % Seg Neuts % (Manual) Lymphocytes % (Manual) Seg Neutrophils # Seg Neutrophils # Man Lymphocytes # (Manual) D-Dimer ABG pH POC ABG pCO2 POC ABG pO2 56.5 L ABG pO2 ABG HCO3 ABG O2 Saturation ABG Base Excess ABG Hemoglobin ABG Oxyhemoglobin ABG Sodium ABG Potassium ABG Chloride 109.0 H ABG Glucose 114 H Oxyhemoglobin Carboxyhemoglobin Sodium Potassium Chloride Carbon Dioxide BUN Creatinine Glucose POC Glucose 114 H 136 H Hemoglobin A1c Lactic Acid Calcium Magnesium Ferritin Total Bilirubin AST ALT Alkaline Phosphatase Lactate Dehydrogenase Total Creatine Kinase C-Reactive Protein Total Protein Albumin Triglycerides Arterial Blood Glucose 114 H Arterial Blood Ionized Calcium 4.5 L Ur Specific [place] Urine WBC (Auto) Vancomycin Trough Coronavirus (PCR) 11/24/20 11/24/20 11/24/20 05:14 05:14 05:14 WBC RBC Hgb Hct RDW Plt Count Lymph % (Auto) [place] % (Auto) Lymph # (Auto) [place] # (Auto) Baso # (Auto) Seg Neutrophils % Seg Neuts % (Manual) Lymphocytes % (Manual) Seg Neutrophils # Seg Neutrophils # Man Lymphocytes # (Manual) D-Dimer 1433.39 H ABG pH POC ABG pCO2 POC ABG pO2 ABG pO2 ABG HCO3 ABG O2 Saturation ABG Base Excess ABG Hemoglobin ABG Oxyhemoglobin ABG Sodium ABG Potassium ABG Chloride ABG Glucose Oxyhemoglobin Carboxyhemoglobin Sodium Potassium Chloride Carbon Dioxide BUN Creatinine Glucose POC Glucose Hemoglobin A1c Lactic Acid Calcium Magnesium Ferritin 997.5 H Total Bilirubin AST ALT Alkaline Phosphatase Lactate Dehydrogenase 463 H Total Creatine Kinase C-Reactive Protein Total Protein Albumin Triglycerides Arterial Blood Glucose Arterial Blood Ionized Calcium Ur Specific [place] Urine WBC (Auto) Vancomycin Trough Coronavirus (PCR) 11/24/20 11/24/20 11/24/20 05:31 05:36 12:05 WBC RBC Hgb Hct RDW Plt Count Lymph % (Auto) [place] % (Auto) Lymph # (Auto) [place] # (Auto) Baso # (Auto) Seg Neutrophils % Seg Neuts % (Manual) Lymphocytes % (Manual) Seg Neutrophils # Seg Neutrophils # Man Lymphocytes # (Manual) D-Dimer ABG pH POC ABG pCO2 POC ABG pO2 57.2 L ABG pO2 ABG HCO3 ABG O2 Saturation ABG Base Excess ABG Hemoglobin ABG Oxyhemoglobin ABG Sodium ABG Potassium ABG Chloride ABG Glucose 180 H Oxyhemoglobin Carboxyhemoglobin Sodium Potassium Chloride Carbon Dioxide BUN Creatinine Glucose POC Glucose 199 H 143 H Hemoglobin A1c Lactic Acid Calcium Magnesium Ferritin Total Bilirubin AST ALT Alkaline Phosphatase Lactate Dehydrogenase Total Creatine Kinase C-Reactive Protein Total Protein Albumin Triglycerides Arterial Blood Glucose 180 H Arterial Blood Ionized Calcium 4.5 L Ur Specific [place] Urine WBC (Auto) Vancomycin Trough Coronavirus (PCR) 11/24/20 11/24/20 11/24/20 12:14 17:47 23:47 WBC RBC Hgb Hct RDW Plt Count Lymph % (Auto) [place] % (Auto) Lymph # (Auto) [place] # (Auto) Baso # (Auto) Seg Neutrophils % Seg Neuts % (Manual) Lymphocytes % (Manual) Seg Neutrophils # Seg Neutrophils # Man Lymphocytes # (Manual) D-Dimer ABG pH 7.261 L POC ABG pCO2 59.7 H POC ABG pO2 75.7 L ABG pO2 ABG HCO3 ABG O2 Saturation ABG Base Excess ABG Hemoglobin ABG Oxyhemoglobin 92.5 L ABG Sodium ABG Potassium ABG Chloride 108.0 H ABG Glucose 150 H Oxyhemoglobin Carboxyhemoglobin Sodium Potassium Chloride Carbon Dioxide BUN Creatinine Glucose POC Glucose 223 H 179 H Hemoglobin A1c Lactic Acid Calcium Magnesium Ferritin Total Bilirubin AST ALT Alkaline Phosphatase Lactate Dehydrogenase Total Creatine Kinase C-Reactive Protein Total Protein Albumin Triglycerides Arterial Blood Glucose 150 H Arterial Blood Ionized Calcium Ur Specific [place] Urine WBC (Auto) Vancomycin Trough Coronavirus (PCR) 11/25/20 11/25/20 11/25/20 03:29 05:07 05:15 WBC 13.9 H RBC Hgb Hct RDW Plt Count Lymph % (Auto) [place] % (Auto) Lymph # (Auto) [place] # (Auto) Baso # (Auto) Seg Neutrophils % Seg Neuts % (Manual) 97.0 H Lymphocytes % (Manual) Seg Neutrophils # Seg Neutrophils # Man 13.5 H Lymphocytes # (Manual) 0.0 L D-Dimer ABG pH 7.272 L POC ABG pCO2 69.0 H POC ABG pO2 132.9 H ABG pO2 ABG HCO3 ABG O2 Saturation ABG Base Excess ABG Hemoglobin ABG Oxyhemoglobin ABG Sodium ABG Potassium ABG Chloride ABG Glucose 174 H Oxyhemoglobin Carboxyhemoglobin Sodium Potassium Chloride Carbon Dioxide BUN Creatinine Glucose POC Glucose 168 H Hemoglobin A1c Lactic Acid Calcium Magnesium Ferritin Total Bilirubin AST ALT Alkaline Phosphatase Lactate Dehydrogenase Total Creatine Kinase C-Reactive Protein Total Protein Albumin Triglycerides Arterial Blood Glucose 174 H Arterial Blood Ionized Calcium Ur Specific [place] Urine WBC (Auto) Vancomycin Trough Coronavirus (PCR) 11/25/20 11/25/20 11/25/20 05:15 11:25 17:35 WBC RBC Hgb Hct RDW Plt Count Lymph % (Auto) [place] % (Auto) Lymph # (Auto) [place] # (Auto) Baso # (Auto) Seg Neutrophils % Seg Neuts % (Manual) Lymphocytes % (Manual) Seg Neutrophils # Seg Neutrophils # Man Lymphocytes # (Manual) D-Dimer ABG pH POC ABG pCO2 POC ABG pO2 ABG pO2 ABG HCO3 ABG O2 Saturation ABG Base Excess ABG Hemoglobin ABG Oxyhemoglobin ABG Sodium ABG Potassium ABG Chloride ABG Glucose Oxyhemoglobin Carboxyhemoglobin Sodium Potassium Chloride Carbon Dioxide BUN 29 H Creatinine 0.5 L Glucose 161 H POC Glucose 224 H 228 H Hemoglobin A1c Lactic Acid Calcium 7.8 L Magnesium Ferritin Total Bilirubin AST 89 H ALT 129 H Alkaline Phosphatase Lactate Dehydrogenase Total Creatine Kinase C-Reactive Protein Total Protein 5.8 L Albumin 2.5 L Triglycerides Arterial Blood Glucose Arterial Blood Ionized Calcium Ur Specific [place] Urine WBC (Auto) Vancomycin Trough Coronavirus (PCR) 11/25/20 11/25/20 11/26/20 20:45 23:28 04:00 WBC RBC Hgb Hct RDW Plt Count Lymph % (Auto) [place] % (Auto) Lymph # (Auto) [place] # (Auto) Baso # (Auto) Seg Neutrophils % Seg Neuts % (Manual) Lymphocytes % (Manual) Seg Neutrophils # Seg Neutrophils # Man Lymphocytes # (Manual) D-Dimer ABG pH POC ABG pCO2 POC ABG pO2 ABG pO2 ABG HCO3 ABG O2 Saturation ABG Base Excess ABG Hemoglobin ABG Oxyhemoglobin ABG Sodium ABG Potassium ABG Chloride ABG Glucose Oxyhemoglobin Carboxyhemoglobin Sodium Potassium Chloride Carbon Dioxide BUN Creatinine Glucose POC Glucose 177 H 243 H Hemoglobin A1c Lactic Acid Calcium Magnesium Ferritin 778.8 H Total Bilirubin AST ALT Alkaline Phosphatase Lactate Dehydrogenase Total Creatine Kinase C-Reactive Protein Total Protein Albumin Triglycerides Arterial Blood Glucose Arterial Blood Ionized Calcium Ur Specific [place] Urine WBC (Auto) Vancomycin Trough Coronavirus (PCR) 11/26/20 11/26/20 11/26/20 04:00 05:34 06:04 WBC RBC Hgb Hct RDW Plt Count Lymph % (Auto) [place] % (Auto) Lymph # (Auto) [place] # (Auto) Baso # (Auto) Seg Neutrophils % Seg Neuts % (Manual) Lymphocytes % (Manual) Seg Neutrophils # Seg Neutrophils # Man Lymphocytes # (Manual) D-Dimer 926.11 H ABG pH POC ABG pCO2 POC ABG pO2 ABG pO2 ABG HCO3 ABG O2 Saturation ABG Base Excess ABG Hemoglobin ABG Oxyhemoglobin ABG Sodium ABG Potassium ABG Chloride ABG Glucose Oxyhemoglobin Carboxyhemoglobin Sodium Potassium Chloride Carbon Dioxide 39 H D BUN 30 H Creatinine 0.5 L Glucose 193 H POC Glucose 178 H Hemoglobin A1c Lactic Acid Calcium 7.7 L Magnesium Ferritin Total Bilirubin AST 65 H ALT 132 H Alkaline Phosphatase Lactate Dehydrogenase 288 H Total Creatine Kinase C-Reactive Protein 1.40 H Total Protein 5.7 L Albumin 2.4 L Triglycerides Arterial Blood Glucose Arterial Blood Ionized Calcium Ur Specific [place] Urine WBC (Auto) Vancomycin Trough Coronavirus (PCR) 11/26/20 11/26/20 11/26/20 06:04 08:47 11:20 WBC 12.4 H RBC Hgb Hct RDW Plt Count Lymph % (Auto) [place] % (Auto) Lymph # (Auto) [place] # (Auto) Baso # (Auto) Seg Neutrophils % Seg Neuts % (Manual) 98.0 H Lymphocytes % (Manual) 1.0 L Seg Neutrophils # Seg Neutrophils # Man 12.2 H Lymphocytes # (Manual) 0.1 L D-Dimer ABG pH POC ABG pCO2 75.2 H POC ABG pO2 61.9 L ABG pO2 ABG HCO3 ABG O2 Saturation ABG Base Excess ABG Hemoglobin ABG Oxyhemoglobin 90.3 L ABG Sodium ABG Potassium ABG Chloride ABG Glucose 243 H Oxyhemoglobin Carboxyhemoglobin Sodium Potassium Chloride Carbon Dioxide BUN Creatinine Glucose POC Glucose 255 H Hemoglobin A1c Lactic Acid Calcium Magnesium Ferritin Total Bilirubin AST ALT Alkaline Phosphatase Lactate Dehydrogenase Total Creatine Kinase C-Reactive Protein Total Protein Albumin Triglycerides Arterial Blood Glucose 243 H Arterial Blood Ionized Calcium Ur Specific [place] Urine WBC (Auto) Vancomycin Trough Coronavirus (PCR) 11/26/20 11/26/20 11/26/20 16:20 17:15 23:41 WBC RBC Hgb Hct RDW Plt Count Lymph % (Auto) [place] % (Auto) Lymph # (Auto) [place] # (Auto) Baso # (Auto) Seg Neutrophils % Seg Neuts % (Manual) Lymphocytes % (Manual) Seg Neutrophils # Seg Neutrophils # Man Lymphocytes # (Manual) D-Dimer ABG pH POC ABG pCO2 66.6 H POC ABG pO2 78.1 L ABG pO2 ABG HCO3 ABG O2 Saturation ABG Base Excess ABG Hemoglobin ABG Oxyhemoglobin ABG Sodium ABG Potassium ABG Chloride ABG Glucose 244 H Oxyhemoglobin Carboxyhemoglobin Sodium Potassium Chloride Carbon Dioxide BUN Creatinine Glucose POC Glucose 219 H 210 H Hemoglobin A1c Lactic Acid Calcium Magnesium Ferritin Total Bilirubin AST ALT Alkaline Phosphatase Lactate Dehydrogenase Total Creatine Kinase C-Reactive Protein Total Protein Albumin Triglycerides Arterial Blood Glucose 244 H Arterial Blood Ionized Calcium Ur Specific [place] Urine WBC (Auto) Vancomycin Trough Coronavirus (PCR) 11/27/20 11/27/20 11/27/20 04:46 05:38 06:25 WBC 13.8 H RBC Hgb Hct RDW Plt Count Lymph % (Auto) 2.0 L [place] % (Auto) Lymph # (Auto) 0.3 L [place] # (Auto) Baso # (Auto) Seg Neutrophils % Seg Neuts % (Manual) 96.0 H Lymphocytes % (Manual) Seg Neutrophils # 12.7 H Seg Neutrophils # Man 13.2 H Lymphocytes # (Manual) 0.0 L D-Dimer ABG pH POC ABG pCO2 63.0 H POC ABG pO2 53.6 L ABG pO2 ABG HCO3 ABG O2 Saturation ABG Base Excess ABG Hemoglobin ABG Oxyhemoglobin 87.8 L ABG Sodium 115.4 L ABG Potassium ABG Chloride ABG Glucose 219 H Oxyhemoglobin Carboxyhemoglobin Sodium Potassium Chloride Carbon Dioxide BUN Creatinine Glucose POC Glucose 227 H Hemoglobin A1c Lactic Acid Calcium Magnesium Ferritin Total Bilirubin AST ALT Alkaline Phosphatase Lactate Dehydrogenase Total Creatine Kinase C-Reactive Protein Total Protein Albumin Triglycerides Arterial Blood Glucose 219 H Arterial Blood Ionized Calcium Ur Specific [place] Urine WBC (Auto) Vancomycin Trough Coronavirus (PCR) 11/27/20 11/27/20 11/27/20 06:25 18:05 23:29 WBC RBC Hgb Hct RDW Plt Count Lymph % (Auto) [place] % (Auto) Lymph # (Auto) [place] # (Auto) Baso # (Auto) Seg Neutrophils % Seg Neuts % (Manual) Lymphocytes % (Manual) Seg Neutrophils # Seg Neutrophils # Man Lymphocytes # (Manual) D-Dimer ABG pH POC ABG pCO2 POC ABG pO2 ABG pO2 ABG HCO3 ABG O2 Saturation ABG Base Excess ABG Hemoglobin ABG Oxyhemoglobin ABG Sodium ABG Potassium ABG Chloride ABG Glucose Oxyhemoglobin Carboxyhemoglobin Sodium Potassium Chloride Carbon Dioxide 38 H BUN 34 H Creatinine 0.4 L Glucose 243 H POC Glucose 329 H 227 H Hemoglobin A1c Lactic Acid Calcium 7.9 L Magnesium Ferritin Total Bilirubin AST 50 H ALT 110 H Alkaline Phosphatase Lactate Dehydrogenase Total Creatine Kinase C-Reactive Protein Total Protein 6.1 L Albumin 2.4 L Triglycerides Arterial Blood Glucose Arterial Blood Ionized Calcium Ur Specific [place] Urine WBC (Auto) Vancomycin Trough Coronavirus (PCR) 11/28/20 11/28/20 11/28/20 03:45 03:45 03:46 WBC 12.2 H RBC Hgb Hct RDW Plt Count Lymph % (Auto) [place] % (Auto) Lymph # (Auto) [place] # (Auto) Baso # (Auto) Seg Neutrophils % Seg Neuts % (Manual) 93.0 H Lymphocytes % (Manual) 2.0 L Seg Neutrophils # Seg Neutrophils # Man 11.3 H Lymphocytes # (Manual) 0.2 L D-Dimer ABG pH POC ABG pCO2 68.4 H POC ABG pO2 55.4 L ABG pO2 ABG HCO3 ABG O2 Saturation ABG Base Excess ABG Hemoglobin ABG Oxyhemoglobin ABG Sodium ABG Potassium ABG Chloride ABG Glucose 197 H Oxyhemoglobin Carboxyhemoglobin Sodium Potassium Chloride Carbon Dioxide 36 H BUN 37 H Creatinine 0.4 L Glucose 194 H POC Glucose Hemoglobin A1c Lactic Acid Calcium 8.1 L Magnesium Ferritin Total Bilirubin AST ALT 86 H Alkaline Phosphatase Lactate Dehydrogenase Total Creatine Kinase C-Reactive Protein Total Protein 6.0 L Albumin 2.3 L Triglycerides Arterial Blood Glucose 197 H Arterial Blood Ionized Calcium Ur Specific [place] Urine WBC (Auto) Vancomycin Trough Coronavirus (PCR) 02/11/28/20 11/29/20 05:24 12:21 04:41 WBC RBC Hgb Hct RDW Plt Count Lymph % (Auto) [place] % (Auto) Lymph # (Auto) [place] # (Auto) Baso # (Auto) Seg Neutrophils % Seg Neuts % (Manual) Lymphocytes % (Manual) Seg Neutrophils # Seg Neutrophils # Man Lymphocytes # (Manual) D-Dimer ABG pH POC ABG pCO2 55.1 H POC ABG pO2 53.6 L ABG pO2 ABG HCO3 ABG O2 Saturation ABG Base Excess ABG Hemoglobin ABG Oxyhemoglobin 87.1 L ABG Sodium 131.2 L ABG Potassium ABG Chloride ABG Glucose 164 H Oxyhemoglobin Carboxyhemoglobin Sodium Potassium Chloride Carbon Dioxide BUN Creatinine Glucose POC Glucose 173 H 126 H Hemoglobin A1c Lactic Acid Calcium Magnesium Ferritin Total Bilirubin AST ALT Alkaline Phosphatase Lactate Dehydrogenase Total Creatine Kinase C-Reactive Protein Total Protein Albumin Triglycerides Arterial Blood Glucose 164 H Arterial Blood Ionized Calcium 4.4 L Ur Specific [place] Urine WBC (Auto) Vancomycin Trough Coronavirus (PCR) 11/29/20 11/29/20 11/29/20 05:29 12:41 13:28 WBC RBC Hgb Hct RDW Plt Count Lymph % (Auto) [place] % (Auto) Lymph # (Auto) [place] # (Auto) Baso # (Auto) Seg Neutrophils % Seg Neuts % (Manual) Lymphocytes % (Manual) Seg Neutrophils # Seg Neutrophils # Man Lymphocytes # (Manual) D-Dimer ABG pH POC ABG pCO2 POC ABG pO2 ABG pO2 ABG HCO3 ABG O2 Saturation ABG Base Excess ABG Hemoglobin ABG Oxyhemoglobin ABG Sodium ABG Potassium ABG Chloride ABG Glucose Oxyhemoglobin Carboxyhemoglobin Sodium Potassium Chloride Carbon Dioxide 40 H BUN 32 H Creatinine 0.4 L Glucose 274 H POC Glucose 173 H 257 H Hemoglobin A1c Lactic Acid Calcium 7.2 L Magnesium Ferritin Total Bilirubin AST 57 H ALT 102 H Alkaline Phosphatase Lactate Dehydrogenase Total Creatine Kinase C-Reactive Protein Total Protein 5.7 L Albumin 2.1 L Triglycerides Arterial Blood Glucose Arterial Blood Ionized Calcium Ur Specific [place] Urine WBC (Auto) Vancomycin Trough Coronavirus (PCR) 11/29/20 11/29/20 11/29/20 15:40 17:36 21:26 WBC RBC Hgb Hct RDW Plt Count Lymph % (Auto) [place] % (Auto) Lymph # (Auto) [place] # (Auto) Baso # (Auto) Seg Neutrophils % Seg Neuts % (Manual) Lymphocytes % (Manual) Seg Neutrophils # Seg Neutrophils # Man Lymphocytes # (Manual) D-Dimer ABG pH POC ABG pCO2 POC ABG pO2 ABG pO2 ABG HCO3 ABG O2 Saturation ABG Base Excess ABG Hemoglobin ABG Oxyhemoglobin ABG Sodium ABG Potassium ABG Chloride ABG Glucose Oxyhemoglobin Carboxyhemoglobin Sodium Potassium Chloride Carbon Dioxide BUN Creatinine Glucose POC Glucose 240 H 244 H Hemoglobin A1c Lactic Acid Calcium Magnesium Ferritin Total Bilirubin AST ALT Alkaline Phosphatase Lactate Dehydrogenase Total Creatine Kinase C-Reactive Protein Total Protein Albumin Triglycerides Arterial Blood Glucose Arterial Blood Ionized Calcium Ur Specific [place] Urine WBC (Auto) Vancomycin Trough 4.0 L Coronavirus (PCR) 11/29/20 11/30/20 11/30/20 23:26 03:30 03:30 WBC RBC Hgb Hct RDW Plt Count Lymph % (Auto) [place] % (Auto) Lymph # (Auto) [place] # (Auto) Baso # (Auto) Seg Neutrophils % Seg Neuts % (Manual) 97.0 H Lymphocytes % (Manual) 1.0 L Seg Neutrophils # Seg Neutrophils # Man 9.9 H Lymphocytes # (Manual) 0.1 L D-Dimer ABG pH POC ABG pCO2 POC ABG pO2 ABG pO2 ABG HCO3 ABG O2 Saturation ABG Base Excess ABG Hemoglobin ABG Oxyhemoglobin ABG Sodium ABG Potassium ABG Chloride ABG Glucose Oxyhemoglobin Carboxyhemoglobin Sodium Potassium Chloride Carbon Dioxide 38 H BUN 34 H Creatinine 0.4 L Glucose 305 H POC Glucose 283 H Hemoglobin A1c Lactic Acid Calcium 7.6 L Magnesium Ferritin Total Bilirubin AST ALT 89 H Alkaline Phosphatase Lactate Dehydrogenase Total Creatine Kinase C-Reactive Protein Total Protein 6.0 L Albumin 2.3 L Triglycerides Arterial Blood Glucose Arterial Blood Ionized Calcium Ur Specific [place] Urine WBC (Auto) Vancomycin Trough Coronavirus (PCR) 11/30/20 11/30/20 11/30/20 03:57 05:22 12:05 WBC RBC Hgb Hct RDW Plt Count Lymph % (Auto) [place] % (Auto) Lymph # (Auto) [place] # (Auto) Baso # (Auto) Seg Neutrophils % Seg Neuts % (Manual) Lymphocytes % (Manual) Seg Neutrophils # Seg Neutrophils # Man Lymphocytes # (Manual) D-Dimer ABG pH POC ABG pCO2 60.8 H POC ABG pO2 51.1 L ABG pO2 ABG HCO3 ABG O2 Saturation ABG Base Excess ABG Hemoglobin ABG Oxyhemoglobin 84.6 L ABG Sodium ABG Potassium ABG Chloride ABG Glucose 315 H Oxyhemoglobin Carboxyhemoglobin Sodium Potassium Chloride Carbon Dioxide BUN Creatinine Glucose POC Glucose 295 H 413 H Hemoglobin A1c Lactic Acid Calcium Magnesium Ferritin Total Bilirubin AST ALT Alkaline Phosphatase Lactate Dehydrogenase Total Creatine Kinase C-Reactive Protein Total Protein Albumin Triglycerides Arterial Blood Glucose 315 H Arterial Blood Ionized Calcium 4.5 L Ur Specific [place] Urine WBC (Auto) Vancomycin Trough Coronavirus (PCR) 11/30/20 11/30/20 12/01/20 17:24 23:25 02:14 WBC RBC Hgb Hct RDW Plt Count Lymph % (Auto) [place] % (Auto) Lymph # (Auto) [place] # (Auto) Baso # (Auto) Seg Neutrophils % Seg Neuts % (Manual) Lymphocytes % (Manual) Seg Neutrophils # Seg Neutrophils # Man Lymphocytes # (Manual) D-Dimer ABG pH 7.278 L POC ABG pCO2 78.1 H POC ABG pO2 79.5 L ABG pO2 ABG HCO3 ABG O2 Saturation ABG Base Excess ABG Hemoglobin 11.6 L ABG Oxyhemoglobin ABG Sodium 134.5 L ABG Potassium 4.6 H ABG Chloride ABG Glucose 286 H Oxyhemoglobin Carboxyhemoglobin Sodium Potassium Chloride Carbon Dioxide BUN Creatinine Glucose POC Glucose 305 H 302 H Hemoglobin A1c Lactic Acid Calcium Magnesium Ferritin Total Bilirubin AST ALT Alkaline Phosphatase Lactate Dehydrogenase Total Creatine Kinase C-Reactive Protein Total Protein Albumin Triglycerides Arterial Blood Glucose 286 H Arterial Blood Ionized Calcium Ur Specific [place] Urine WBC (Auto) Vancomycin Trough Coronavirus (PCR) 12/01/20 12/01/20 12/01/20 03:35 03:35 05:22 WBC 13.4 H RBC 3.54 L Hgb 10.4 L Hct 31.8 L RDW Plt Count Lymph % (Auto) [place] % (Auto) Lymph # (Auto) [place] # (Auto) Baso # (Auto) Seg Neutrophils % Seg Neuts % (Manual) 95.0 H Lymphocytes % (Manual) 3.0 L Seg Neutrophils # Seg Neutrophils # Man 12.7 H Lymphocytes # (Manual) 0.4 L D-Dimer ABG pH POC ABG pCO2 POC ABG pO2 ABG pO2 ABG HCO3 ABG O2 Saturation ABG Base Excess ABG Hemoglobin ABG Oxyhemoglobin ABG Sodium ABG Potassium ABG Chloride ABG Glucose Oxyhemoglobin Carboxyhemoglobin Sodium Potassium Chloride Carbon Dioxide 35 H BUN 34 H Creatinine 0.5 L Glucose 279 H POC Glucose 259 H Hemoglobin A1c Lactic Acid Calcium 7.6 L Magnesium Ferritin Total Bilirubin AST ALT 63 H Alkaline Phosphatase Lactate Dehydrogenase Total Creatine Kinase C-Reactive Protein Total Protein 4.8 L Albumin 2.1 L Triglycerides Arterial Blood Glucose Arterial Blood Ionized Calcium Ur Specific [place] Urine WBC (Auto) Vancomycin Trough Coronavirus (PCR) 12/01/20 12/01/20 12/01/20 12:05 17:40 23:46 WBC RBC Hgb Hct RDW Plt Count Lymph % (Auto) [place] % (Auto) Lymph # (Auto) [place] # (Auto) Baso # (Auto) Seg Neutrophils % Seg Neuts % (Manual) Lymphocytes % (Manual) Seg Neutrophils # Seg Neutrophils # Man Lymphocytes # (Manual) D-Dimer ABG pH POC ABG pCO2 POC ABG pO2 ABG pO2 ABG HCO3 ABG O2 Saturation ABG Base Excess ABG Hemoglobin ABG Oxyhemoglobin ABG Sodium ABG Potassium ABG Chloride ABG Glucose Oxyhemoglobin Carboxyhemoglobin Sodium Potassium Chloride Carbon Dioxide BUN Creatinine Glucose POC Glucose 197 H 244 H 284 H Hemoglobin A1c Lactic Acid Calcium Magnesium Ferritin Total Bilirubin AST ALT Alkaline Phosphatase Lactate Dehydrogenase Total Creatine Kinase C-Reactive Protein Total Protein Albumin Triglycerides Arterial Blood Glucose Arterial Blood Ionized Calcium Ur Specific [place] Urine WBC (Auto) Vancomycin Trough Coronavirus (PCR) 12/02/20 12/02/20 12/02/20 02:14 03:03 04:11 WBC 16.5 H RBC 3.55 L Hgb 10.5 L Hct 31.9 L RDW Plt Count Lymph % (Auto) [place] % (Auto) Lymph # (Auto) [place] # (Auto) Baso # (Auto) Seg Neutrophils % Seg Neuts % (Manual) 90.0 H Lymphocytes % (Manual) 3.0 L Seg Neutrophils # Seg Neutrophils # Man 14.9 H Lymphocytes # (Manual) 0.5 L D-Dimer ABG pH POC ABG pCO2 74.8 H POC ABG pO2 58.9 L ABG pO2 ABG HCO3 ABG O2 Saturation ABG Base Excess ABG Hemoglobin 11.5 L ABG Oxyhemoglobin ABG Sodium ABG Potassium ABG Chloride ABG Glucose 264 H Oxyhemoglobin Carboxyhemoglobin Sodium Potassium Chloride Carbon Dioxide 37 H BUN 30 H Creatinine 0.4 L Glucose 245 H POC Glucose Hemoglobin A1c Lactic Acid Calcium 7.5 L Magnesium Ferritin Total Bilirubin AST ALT Alkaline Phosphatase Lactate Dehydrogenase Total Creatine Kinase C-Reactive Protein Total Protein 5.2 L Albumin 2.2 L Triglycerides Arterial Blood Glucose 264 H Arterial Blood Ionized Calcium 4.5 L Ur Specific [place] Urine WBC (Auto) Vancomycin Trough Coronavirus (PCR) 12/02/20 12/02/20 12/02/20 05:19 11:46 17:52 WBC RBC Hgb Hct RDW Plt Count Lymph % (Auto) [place] % (Auto) Lymph # (Auto) [place] # (Auto) Baso # (Auto) Seg Neutrophils % Seg Neuts % (Manual) Lymphocytes % (Manual) Seg Neutrophils # Seg Neutrophils # Man Lymphocytes # (Manual) D-Dimer ABG pH POC ABG pCO2 POC ABG pO2 ABG pO2 ABG HCO3 ABG O2 Saturation ABG Base Excess ABG Hemoglobin ABG Oxyhemoglobin ABG Sodium ABG Potassium ABG Chloride ABG Glucose Oxyhemoglobin Carboxyhemoglobin Sodium Potassium Chloride Carbon Dioxide BUN Creatinine Glucose POC Glucose 238 H 236 H 233 H Hemoglobin A1c Lactic Acid Calcium Magnesium Ferritin Total Bilirubin AST ALT Alkaline Phosphatase Lactate Dehydrogenase Total Creatine Kinase C-Reactive Protein Total Protein Albumin Triglycerides Arterial Blood Glucose Arterial Blood Ionized Calcium Ur Specific [place] Urine WBC (Auto) Vancomycin Trough Coronavirus (PCR) 12/02/20 12/03/20 12/03/20 23:23 03:21 04:35 WBC RBC Hgb Hct RDW Plt Count 112 L Lymph % (Auto) [place] % (Auto) Lymph # (Auto) [place] # (Auto) Baso # (Auto) Seg Neutrophils % Seg Neuts % (Manual) 93.0 H Lymphocytes % (Manual) 4.0 L Seg Neutrophils # Seg Neutrophils # Man 9.1 H Lymphocytes # (Manual) 0.4 L D-Dimer ABG pH 7.299 L POC ABG pCO2 82.1 H POC ABG pO2 62.4 L ABG pO2 ABG HCO3 ABG O2 Saturation ABG Base Excess ABG Hemoglobin 11.5 L ABG Oxyhemoglobin 89.6 L ABG Sodium 134.3 L ABG Potassium ABG Chloride 95.0 L ABG Glucose 203 H Oxyhemoglobin Carboxyhemoglobin Sodium Potassium Chloride Carbon Dioxide BUN Creatinine Glucose POC Glucose 213 H Hemoglobin A1c Lactic Acid Calcium Magnesium Ferritin Total Bilirubin AST ALT Alkaline Phosphatase Lactate Dehydrogenase Total Creatine Kinase C-Reactive Protein Total Protein Albumin Triglycerides Arterial Blood Glucose 203 H Arterial Blood Ionized Calcium 4.5 L Ur Specific [place] Urine WBC (Auto) Vancomycin Trough Coronavirus (PCR) 12/03/20 12/03/20 12/03/20 04:35 05:42 11:28 WBC RBC Hgb Hct RDW Plt Count Lymph % (Auto) [place] % (Auto) Lymph # (Auto) [place] # (Auto) Baso # (Auto) Seg Neutrophils % Seg Neuts % (Manual) Lymphocytes % (Manual) Seg Neutrophils # Seg Neutrophils # Man Lymphocytes # (Manual) D-Dimer ABG pH POC ABG pCO2 POC ABG pO2 ABG pO2 ABG HCO3 ABG O2 Saturation ABG Base Excess ABG Hemoglobin ABG Oxyhemoglobin ABG Sodium ABG Potassium ABG Chloride ABG Glucose Oxyhemoglobin Carboxyhemoglobin Sodium Potassium Chloride 97.8 L Carbon Dioxide 43 H* BUN 25 H Creatinine 0.3 L Glucose 214 H POC Glucose 193 H 211 H Hemoglobin A1c Lactic Acid Calcium 7.7 L Magnesium Ferritin Total Bilirubin AST ALT 63 H Alkaline Phosphatase 132 H Lactate Dehydrogenase Total Creatine Kinase C-Reactive Protein Total Protein 5.1 L Albumin 2.4 L Triglycerides Arterial Blood Glucose Arterial Blood Ionized Calcium Ur Specific [place] Urine WBC (Auto) Vancomycin Trough Coronavirus (PCR) 12/03/20 12/03/20 12/04/20 17:45 23:57 00:11 WBC RBC Hgb Hct RDW Plt Count Lymph % (Auto) [place] % (Auto) Lymph # (Auto) [place] # (Auto) Baso # (Auto) Seg Neutrophils % Seg Neuts % (Manual) Lymphocytes % (Manual) Seg Neutrophils # Seg Neutrophils # Man Lymphocytes # (Manual) D-Dimer ABG pH POC ABG pCO2 POC ABG pO2 ABG pO2 ABG HCO3 ABG O2 Saturation ABG Base Excess ABG Hemoglobin ABG Oxyhemoglobin ABG Sodium ABG Potassium ABG Chloride ABG Glucose Oxyhemoglobin Carboxyhemoglobin Sodium Potassium Chloride Carbon Dioxide BUN Creatinine Glucose POC Glucose 231 H 240 H 239 H Hemoglobin A1c Lactic Acid Calcium Magnesium Ferritin Total Bilirubin AST ALT Alkaline Phosphatase Lactate Dehydrogenase Total Creatine Kinase C-Reactive Protein Total Protein Albumin Triglycerides Arterial Blood Glucose Arterial Blood Ionized Calcium Ur Specific [place] Urine WBC (Auto) Vancomycin Trough Coronavirus (PCR) 12/04/20 12/04/20 12/04/20 04:00 05:20 05:34 WBC RBC Hgb Hct RDW Plt Count Lymph % (Auto) [place] % (Auto) Lymph # (Auto) [place] # (Auto) Baso # (Auto) Seg Neutrophils % Seg Neuts % (Manual) Lymphocytes % (Manual) Seg Neutrophils # Seg Neutrophils # Man Lymphocytes # (Manual) D-Dimer ABG pH POC ABG pCO2 84.4 H POC ABG pO2 68.0 L ABG pO2 ABG HCO3 ABG O2 Saturation ABG Base Excess ABG Hemoglobin 11.6 L ABG Oxyhemoglobin ABG Sodium 130.9 L ABG Potassium ABG Chloride 90.0 L ABG Glucose 244 H Oxyhemoglobin Carboxyhemoglobin Sodium Potassium Chloride Carbon Dioxide BUN Creatinine Glucose POC Glucose 241 H 213 H Hemoglobin A1c Lactic Acid Calcium Magnesium Ferritin Total Bilirubin AST ALT Alkaline Phosphatase Lactate Dehydrogenase Total Creatine Kinase C-Reactive Protein Total Protein Albumin Triglycerides Arterial Blood Glucose 244 H Arterial Blood Ionized Calcium 4.4 L Ur Specific [place] Urine WBC (Auto) Vancomycin Trough Coronavirus (PCR) 12/04/20 12/04/20 12/04/20 11:36 16:53 23:32 WBC RBC Hgb Hct RDW Plt Count Lymph % (Auto) [place] % (Auto) Lymph # (Auto) [place] # (Auto) Baso # (Auto) Seg Neutrophils % Seg Neuts % (Manual) Lymphocytes % (Manual) Seg Neutrophils # Seg Neutrophils # Man Lymphocytes # (Manual) D-Dimer ABG pH POC ABG pCO2 POC ABG pO2 ABG pO2 ABG HCO3 ABG O2 Saturation ABG Base Excess ABG Hemoglobin ABG Oxyhemoglobin ABG Sodium ABG Potassium ABG Chloride ABG Glucose Oxyhemoglobin Carboxyhemoglobin Sodium Potassium Chloride Carbon Dioxide BUN Creatinine Glucose POC Glucose 196 H 127 H 230 H Hemoglobin A1c Lactic Acid Calcium Magnesium Ferritin Total Bilirubin AST ALT Alkaline Phosphatase Lactate Dehydrogenase Total Creatine Kinase C-Reactive Protein Total Protein Albumin Triglycerides Arterial Blood Glucose Arterial Blood Ionized Calcium Ur Specific [place] Urine WBC (Auto) Vancomycin Trough Coronavirus (PCR) 12/04/20 12/05/20 12/05/20 Unknown 04:16 05:21 WBC RBC Hgb Hct RDW Plt Count Lymph % (Auto) [place] % (Auto) Lymph # (Auto) [place] # (Auto) Baso # (Auto) Seg Neutrophils % Seg Neuts % (Manual) Lymphocytes % (Manual) Seg Neutrophils # Seg Neutrophils # Man Lymphocytes # (Manual) D-Dimer ABG pH POC ABG pCO2 86.7 H POC ABG pO2 58.0 L ABG pO2 ABG HCO3 ABG O2 Saturation ABG Base Excess ABG Hemoglobin 11.6 L ABG Oxyhemoglobin 89 L ABG Sodium 130.1 L ABG Potassium 4.9 H ABG Chloride 89.0 L ABG Glucose 254 H Oxyhemoglobin Carboxyhemoglobin Sodium 136 L Potassium Chloride 90.0 L Carbon Dioxide 46 H* BUN 24 H Creatinine 0.3 L Glucose 226 H POC Glucose 213 H Hemoglobin A1c Lactic Acid Calcium 7.6 L Magnesium Ferritin Total Bilirubin AST 46 H ALT 78 H Alkaline Phosphatase 172 H Lactate Dehydrogenase Total Creatine Kinase C-Reactive Protein Total Protein 6.0 L Albumin 2.8 L Triglycerides 156 H Arterial Blood Glucose 254 H Arterial Blood Ionized Calcium 4.4 L Ur Specific [place] Urine WBC (Auto) Vancomycin Trough Coronavirus (PCR) 12/05/20 12/05/20 12/05/20 11:22 17:26 23:38 WBC RBC Hgb Hct RDW Plt Count Lymph % (Auto) [place] % (Auto) Lymph # (Auto) [place] # (Auto) Baso # (Auto) Seg Neutrophils % Seg Neuts % (Manual) Lymphocytes % (Manual) Seg Neutrophils # Seg Neutrophils # Man Lymphocytes # (Manual) D-Dimer ABG pH POC ABG pCO2 POC ABG pO2 ABG pO2 ABG HCO3 ABG O2 Saturation ABG Base Excess ABG Hemoglobin ABG Oxyhemoglobin ABG Sodium ABG Potassium ABG Chloride ABG Glucose Oxyhemoglobin Carboxyhemoglobin Sodium Potassium Chloride Carbon Dioxide BUN Creatinine Glucose POC Glucose 212 H 157 H 204 H Hemoglobin A1c Lactic Acid Calcium Magnesium Ferritin Total Bilirubin AST ALT Alkaline Phosphatase Lactate Dehydrogenase Total Creatine Kinase C-Reactive Protein Total Protein Albumin Triglycerides Arterial Blood Glucose Arterial Blood Ionized Calcium Ur Specific [place] Urine WBC (Auto) Vancomycin Trough Coronavirus (PCR) 12/06/20 12/06/20 12/06/20 04:31 04:31 05:12 WBC 17.0 H RBC 3.63 L Hgb 10.8 L D Hct 32.6 L D RDW Plt Count Lymph % (Auto) [place] % (Auto) Lymph # (Auto) [place] # (Auto) Baso # (Auto) Seg Neutrophils % Seg Neuts % (Manual) Lymphocytes % (Manual) Seg Neutrophils # Seg Neutrophils # Man Lymphocytes # (Manual) D-Dimer ABG pH POC ABG pCO2 85.9 H POC ABG pO2 57.6 L ABG pO2 ABG HCO3 ABG O2 Saturation ABG Base Excess ABG Hemoglobin ABG Oxyhemoglobin ABG Sodium 131.2 L ABG Potassium 4.8 H ABG Chloride 86.0 L ABG Glucose 200 H Oxyhemoglobin Carboxyhemoglobin Sodium 134 L Potassium 5.1 H Chloride 88.4 L Carbon Dioxide 47 H* BUN 23 H Creatinine 0.3 L Glucose 206 H POC Glucose Hemoglobin A1c Lactic Acid Calcium 8.3 L Magnesium Ferritin Total Bilirubin AST 48 H ALT 91 H Alkaline Phosphatase 140 H Lactate Dehydrogenase Total Creatine Kinase C-Reactive Protein Total Protein 5.7 L Albumin 2.6 L Triglycerides Arterial Blood Glucose 200 H Arterial Blood Ionized Calcium 4.4 L Ur Specific [place] Urine WBC (Auto) Vancomycin Trough Coronavirus (PCR) 12/06/20 12/06/20 12/06/20 05:24 12:18 16:45 WBC RBC Hgb Hct RDW Plt Count Lymph % (Auto) [place] % (Auto) Lymph # (Auto) [place] # (Auto) Baso # (Auto) Seg Neutrophils % Seg Neuts % (Manual) Lymphocytes % (Manual) Seg Neutrophils # Seg Neutrophils # Man Lymphocytes # (Manual) D-Dimer ABG pH POC ABG pCO2 POC ABG pO2 ABG pO2 ABG HCO3 ABG O2 Saturation ABG Base Excess ABG Hemoglobin ABG Oxyhemoglobin ABG Sodium ABG Potassium ABG Chloride ABG Glucose Oxyhemoglobin Carboxyhemoglobin Sodium Potassium Chloride Carbon Dioxide BUN Creatinine Glucose POC Glucose 186 H 187 H 150 H Hemoglobin A1c Lactic Acid Calcium Magnesium Ferritin Total Bilirubin AST ALT Alkaline Phosphatase Lactate Dehydrogenase Total Creatine Kinase C-Reactive Protein Total Protein Albumin Triglycerides Arterial Blood Glucose Arterial Blood Ionized Calcium Ur Specific [place] Urine WBC (Auto) Vancomycin Trough Coronavirus (PCR) 12/06/20 12/07/20 12/07/20 23:43 05:20 05:21 WBC RBC Hgb Hct RDW Plt Count Lymph % (Auto) [place] % (Auto) Lymph # (Auto) [place] # (Auto) Baso # (Auto) Seg Neutrophils % Seg Neuts % (Manual) Lymphocytes % (Manual) Seg Neutrophils # Seg Neutrophils # Man Lymphocytes # (Manual) D-Dimer ABG pH POC ABG pCO2 POC ABG pO2 ABG pO2 48.4 L ABG HCO3 50.8 H ABG O2 Saturation 86.2 L ABG Base Excess 22.4 H ABG Hemoglobin 11.0 L ABG Oxyhemoglobin ABG Sodium ABG Potassium ABG Chloride ABG Glucose Oxyhemoglobin 84.0 L Carboxyhemoglobin Sodium Potassium Chloride Carbon Dioxide BUN Creatinine Glucose POC Glucose 153 H 107 H Hemoglobin A1c Lactic Acid Calcium Magnesium Ferritin Total Bilirubin AST ALT Alkaline Phosphatase Lactate Dehydrogenase Total Creatine Kinase C-Reactive Protein Total Protein Albumin Triglycerides Arterial Blood Glucose Arterial Blood Ionized Calcium Ur Specific [place] Urine WBC (Auto) Vancomycin Trough Coronavirus (PCR) 12/07/20 12/07/20 12/07/20 13:20 14:28 17:35 WBC RBC Hgb Hct RDW Plt Count Lymph % (Auto) [place] % (Auto) Lymph # (Auto) [place] # (Auto) Baso # (Auto) Seg Neutrophils % Seg Neuts % (Manual) Lymphocytes % (Manual) Seg Neutrophils # Seg Neutrophils # Man Lymphocytes # (Manual) D-Dimer ABG pH POC ABG pCO2 74.1 H POC ABG pO2 68.5 L ABG pO2 ABG HCO3 ABG O2 Saturation ABG Base Excess ABG Hemoglobin 10.7 L ABG Oxyhemoglobin 91.9 L ABG Sodium 132.2 L ABG Potassium 4.7 H ABG Chloride 88.0 L ABG Glucose 138 H Oxyhemoglobin Carboxyhemoglobin Sodium 134 L Potassium Chloride 87.4 L Carbon Dioxide 49 H* BUN Creatinine 0.2 L Glucose 132 H POC Glucose 176 H Hemoglobin A1c Lactic Acid Calcium 7.7 L Magnesium Ferritin Total Bilirubin AST ALT Alkaline Phosphatase Lactate Dehydrogenase Total Creatine Kinase C-Reactive Protein Total Protein Albumin Triglycerides Arterial Blood Glucose 138 H Arterial Blood Ionized Calcium 4.0 L Ur Specific [place] Urine WBC (Auto) Vancomycin Trough Coronavirus (PCR) 12/07/20 12/08/20 12/08/20 23:44 04:12 05:29 WBC RBC Hgb Hct RDW Plt Count Lymph % (Auto) [place] % (Auto) Lymph # (Auto) [place] # (Auto) Baso # (Auto) Seg Neutrophils % Seg Neuts % (Manual) Lymphocytes % (Manual) Seg Neutrophils # Seg Neutrophils # Man Lymphocytes # (Manual) D-Dimer ABG pH POC ABG pCO2 POC ABG pO2 ABG pO2 69.7 L ABG HCO3 50.1 H ABG O2 Saturation ABG Base Excess 21.6 H ABG Hemoglobin 10.9 L ABG Oxyhemoglobin ABG Sodium ABG Potassium ABG Chloride ABG Glucose Oxyhemoglobin 93.2 L Carboxyhemoglobin Sodium Potassium Chloride Carbon Dioxide BUN Creatinine Glucose POC Glucose 143 H 143 H Hemoglobin A1c Lactic Acid Calcium Magnesium Ferritin Total Bilirubin AST ALT Alkaline Phosphatase Lactate Dehydrogenase Total Creatine Kinase C-Reactive Protein Total Protein Albumin Triglycerides Arterial Blood Glucose Arterial Blood Ionized Calcium Ur Specific [place] Urine WBC (Auto) Vancomycin Trough Coronavirus (PCR) 12/08/20 12/08/20 12/09/20 06:10 06:10 04:24 WBC 12.0 H RBC 3.18 L Hgb 9.5 L Hct 28.9 L RDW Plt Count Lymph % (Auto) [place] % (Auto) Lymph # (Auto) [place] # (Auto) Baso # (Auto) Seg Neutrophils % Seg Neuts % (Manual) 95.0 H Lymphocytes % (Manual) 3.0 L Seg Neutrophils # Seg Neutrophils # Man 11.4 H Lymphocytes # (Manual) 0.4 L D-Dimer ABG pH POC ABG pCO2 76.2 H POC ABG pO2 52.8 L ABG pO2 ABG HCO3 ABG O2 Saturation ABG Base Excess ABG Hemoglobin 11.7 L ABG Oxyhemoglobin ABG Sodium 132.0 L ABG Potassium ABG Chloride 87.0 L ABG Glucose 118 H Oxyhemoglobin Carboxyhemoglobin Sodium 133 L Potassium Chloride 86.3 L Carbon Dioxide 53 H* BUN Creatinine 0.2 L Glucose 156 H POC Glucose Hemoglobin A1c Lactic Acid Calcium 7.6 L Magnesium Ferritin Total Bilirubin AST ALT Alkaline Phosphatase Lactate Dehydrogenase Total Creatine Kinase C-Reactive Protein Total Protein Albumin Triglycerides Arterial Blood Glucose 118 H Arterial Blood Ionized Calcium 4.2 L Ur Specific [place] Urine WBC (Auto) Vancomycin Trough Coronavirus (PCR) 12/09/20 12/09/20 12/09/20 05:44 06:40 06:40 WBC 13.5 H RBC 3.28 L Hgb 9.7 L Hct 29.9 L RDW Plt Count Lymph % (Auto) [place] % (Auto) Lymph # (Auto) [place] # (Auto) Baso # (Auto) Seg Neutrophils % Seg Neuts % (Manual) Lymphocytes % (Manual) Seg Neutrophils # Seg Neutrophils # Man Lymphocytes # (Manual) D-Dimer ABG pH POC ABG pCO2 POC ABG pO2 ABG pO2 ABG HCO3 ABG O2 Saturation ABG Base Excess ABG Hemoglobin ABG Oxyhemoglobin ABG Sodium ABG Potassium ABG Chloride ABG Glucose Oxyhemoglobin Carboxyhemoglobin Sodium 135 L Potassium Chloride 89.5 L Carbon Dioxide 52 H* BUN Creatinine 0.3 L Glucose 114 H POC Glucose 117 H Hemoglobin A1c Lactic Acid Calcium 7.6 L Magnesium Ferritin Total Bilirubin AST ALT Alkaline Phosphatase Lactate Dehydrogenase Total Creatine Kinase C-Reactive Protein Total Protein Albumin Triglycerides Arterial Blood Glucose Arterial Blood Ionized Calcium Ur Specific [place] Urine WBC (Auto) Vancomycin Trough Coronavirus (PCR) 12/09/20 12/09/20 12/10/20 16:42 21:11 04:28 WBC RBC Hgb Hct RDW Plt Count Lymph % (Auto) [place] % (Auto) Lymph # (Auto) [place] # (Auto) Baso # (Auto) Seg Neutrophils % Seg Neuts % (Manual) Lymphocytes % (Manual) Seg Neutrophils # Seg Neutrophils # Man Lymphocytes # (Manual) D-Dimer ABG pH POC ABG pCO2 72.5 H 69.4 H 76.9 H POC ABG pO2 50.4 L 80.6 L 60.2 L ABG pO2 ABG HCO3 ABG O2 Saturation ABG Base Excess ABG Hemoglobin 10.4 L 10.7 L 10 L ABG Oxyhemoglobin 84.3 L 89.7 L ABG Sodium 133.7 L 133.7 L 133.8 L ABG Potassium ABG Chloride 90.0 L 91.0 L 91.0 L ABG Glucose 116 H 96 H 57 L Oxyhemoglobin Carboxyhemoglobin 0.4 L Sodium Potassium Chloride Carbon Dioxide BUN Creatinine Glucose POC Glucose Hemoglobin A1c Lactic Acid Calcium Magnesium Ferritin Total Bilirubin AST ALT Alkaline Phosphatase Lactate Dehydrogenase Total Creatine Kinase C-Reactive Protein Total Protein Albumin Triglycerides Arterial Blood Glucose 116 H 96 H 57 L Arterial Blood Ionized Calcium 4.2 L 4.3 L 4.2 L Ur Specific [place] Urine WBC (Auto) Vancomycin Trough Coronavirus (PCR) 12/10/20 12/10/20 12/10/20 05:09 05:41 11:50 WBC RBC Hgb Hct RDW Plt Count Lymph % (Auto) [place] % (Auto) Lymph # (Auto) [place] # (Auto) Baso # (Auto) Seg Neutrophils % Seg Neuts % (Manual) Lymphocytes % (Manual) Seg Neutrophils # Seg Neutrophils # Man Lymphocytes # (Manual) D-Dimer ABG pH POC ABG pCO2 POC ABG pO2 ABG pO2 ABG HCO3 ABG O2 Saturation ABG Base Excess ABG Hemoglobin ABG Oxyhemoglobin ABG Sodium ABG Potassium ABG Chloride ABG Glucose Oxyhemoglobin Carboxyhemoglobin Sodium Potassium Chloride Carbon Dioxide BUN Creatinine Glucose POC Glucose 41 L 138 H 106 H Hemoglobin A1c Lactic Acid Calcium Magnesium Ferritin Total Bilirubin AST ALT Alkaline Phosphatase Lactate Dehydrogenase Total Creatine Kinase C-Reactive Protein Total Protein Albumin Triglycerides Arterial Blood Glucose Arterial Blood Ionized Calcium Ur Specific [place] Urine WBC (Auto) Vancomycin Trough Coronavirus (PCR) 12/10/20 12/10/20 12/11/20 17:34 23:25 04:06 WBC RBC Hgb Hct RDW Plt Count Lymph % (Auto) [place] % (Auto) Lymph # (Auto) [place] # (Auto) Baso # (Auto) Seg Neutrophils % Seg Neuts % (Manual) Lymphocytes % (Manual) Seg Neutrophils # Seg Neutrophils # Man Lymphocytes # (Manual) D-Dimer ABG pH POC ABG pCO2 71.0 H POC ABG pO2 56.8 L ABG pO2 ABG HCO3 ABG O2 Saturation ABG Base Excess ABG Hemoglobin 10.1 L ABG Oxyhemoglobin 88.5 L ABG Sodium 132.3 L ABG Potassium ABG Chloride 91.0 L ABG Glucose 168 H Oxyhemoglobin Carboxyhemoglobin Sodium Potassium Chloride Carbon Dioxide BUN Creatinine Glucose POC Glucose 121 H 167 H Hemoglobin A1c Lactic Acid Calcium Magnesium Ferritin Total Bilirubin AST ALT Alkaline Phosphatase Lactate Dehydrogenase Total Creatine Kinase C-Reactive Protein Total Protein Albumin Triglycerides Arterial Blood Glucose 168 H Arterial Blood Ionized Calcium 4.1 L Ur Specific [place] Urine WBC (Auto) Vancomycin Trough Coronavirus (PCR) 12/11/20 12/11/20 12/11/20 05:21 11:44 15:40 WBC RBC Hgb Hct RDW Plt Count Lymph % (Auto) [place] % (Auto) Lymph # (Auto) [place] # (Auto) Baso # (Auto) Seg Neutrophils % Seg Neuts % (Manual) Lymphocytes % (Manual) Seg Neutrophils # Seg Neutrophils # Man Lymphocytes # (Manual) D-Dimer ABG pH 7.454 H POC ABG pCO2 58.6 H POC ABG pO2 50.7 L ABG pO2 ABG HCO3 ABG O2 Saturation ABG Base Excess ABG Hemoglobin 10.1 L ABG Oxyhemoglobin 86.2 L ABG Sodium 131.2 L ABG Potassium ABG Chloride 92.0 L ABG Glucose 197 H Oxyhemoglobin Carboxyhemoglobin Sodium Potassium Chloride Carbon Dioxide BUN Creatinine Glucose POC Glucose 149 H 202 H Hemoglobin A1c Lactic Acid Calcium Magnesium Ferritin Total Bilirubin AST ALT Alkaline Phosphatase Lactate Dehydrogenase Total Creatine Kinase C-Reactive Protein Total Protein Albumin Triglycerides Arterial Blood Glucose 197 H Arterial Blood Ionized Calcium 4.2 L Ur Specific [place] Urine WBC (Auto) Vancomycin Trough Coronavirus (PCR) 12/11/20 12/11/20 12/12/20 17:09 23:16 05:09 WBC RBC Hgb Hct RDW Plt Count Lymph % (Auto) [place] % (Auto) Lymph # (Auto) [place] # (Auto) Baso # (Auto) Seg Neutrophils % Seg Neuts % (Manual) Lymphocytes % (Manual) Seg Neutrophils # Seg Neutrophils # Man Lymphocytes # (Manual) D-Dimer ABG pH POC ABG pCO2 63.1 H POC ABG pO2 62.6 L ABG pO2 ABG HCO3 ABG O2 Saturation ABG Base Excess ABG Hemoglobin 10.3 L ABG Oxyhemoglobin ABG Sodium 130.3 L ABG Potassium 4.6 H ABG Chloride 92.0 L ABG Glucose 215 H Oxyhemoglobin Carboxyhemoglobin Sodium Potassium Chloride Carbon Dioxide BUN Creatinine Glucose POC Glucose 181 H 192 H Hemoglobin A1c Lactic Acid Calcium Magnesium Ferritin Total Bilirubin AST ALT Alkaline Phosphatase Lactate Dehydrogenase Total Creatine Kinase C-Reactive Protein Total Protein Albumin Triglycerides Arterial Blood Glucose 215 H Arterial Blood Ionized Calcium 4.4 L Ur Specific [place] Urine WBC (Auto) Vancomycin Trough Coronavirus (PCR) 12/12/20 12/12/20 12/12/20 05:16 05:47 11:41 WBC RBC Hgb Hct RDW Plt Count Lymph % (Auto) [place] % (Auto) Lymph # (Auto) [place] # (Auto) Baso # (Auto) Seg Neutrophils % Seg Neuts % (Manual) Lymphocytes % (Manual) Seg Neutrophils # Seg Neutrophils # Man Lymphocytes # (Manual) D-Dimer ABG pH POC ABG pCO2 POC ABG pO2 ABG pO2 ABG HCO3 ABG O2 Saturation ABG Base Excess ABG Hemoglobin ABG Oxyhemoglobin ABG Sodium ABG Potassium ABG Chloride ABG Glucose Oxyhemoglobin Carboxyhemoglobin Sodium Potassium Chloride Carbon Dioxide BUN Creatinine Glucose POC Glucose 208 H 218 H Hemoglobin A1c Lactic Acid Calcium Magnesium Ferritin Total Bilirubin AST ALT Alkaline Phosphatase Lactate Dehydrogenase Total Creatine Kinase C-Reactive Protein Total Protein Albumin Triglycerides 150 H Arterial Blood Glucose Arterial Blood Ionized Calcium Ur Specific [place] Urine WBC (Auto) Vancomycin Trough Coronavirus (PCR) 12/12/20 12/12/20 12/13/20 17:05 23:18 03:36 WBC RBC Hgb Hct RDW Plt Count Lymph % (Auto) [place] % (Auto) Lymph # (Auto) [place] # (Auto) Baso # (Auto) Seg Neutrophils % Seg Neuts % (Manual) Lymphocytes % (Manual) Seg Neutrophils # Seg Neutrophils # Man Lymphocytes # (Manual) D-Dimer ABG pH POC ABG pCO2 61.5 H POC ABG pO2 77.6 L ABG pO2 ABG HCO3 ABG O2 Saturation ABG Base Excess ABG Hemoglobin 10.2 L ABG Oxyhemoglobin ABG Sodium 127.5 L ABG Potassium ABG Chloride 91.0 L ABG Glucose 232 H Oxyhemoglobin Carboxyhemoglobin Sodium Potassium Chloride Carbon Dioxide BUN Creatinine Glucose POC Glucose 187 H 176 H Hemoglobin A1c Lactic Acid Calcium Magnesium Ferritin Total Bilirubin AST ALT Alkaline Phosphatase Lactate Dehydrogenase Total Creatine Kinase C-Reactive Protein Total Protein Albumin Triglycerides Arterial Blood Glucose 232 H Arterial Blood Ionized Calcium 4.2 L Ur Specific [place] Urine WBC (Auto) Vancomycin Trough Coronavirus (PCR) 12/13/20 12/13/20 12/13/20 05:13 10:00 11:30 WBC RBC 3.50 L Hgb 10.5 L Hct 31.9 L RDW Plt Count Lymph % (Auto) [place] % (Auto) Lymph # (Auto) [place] # (Auto) Baso # (Auto) Seg Neutrophils % Seg Neuts % (Manual) 96.0 H Lymphocytes % (Manual) Seg Neutrophils # Seg Neutrophils # Man 9.2 H Lymphocytes # (Manual) 0.0 L D-Dimer ABG pH POC ABG pCO2 POC ABG pO2 ABG pO2 ABG HCO3 ABG O2 Saturation ABG Base Excess ABG Hemoglobin ABG Oxyhemoglobin ABG Sodium ABG Potassium ABG Chloride ABG Glucose Oxyhemoglobin Carboxyhemoglobin Sodium Potassium Chloride Carbon Dioxide BUN Creatinine Glucose POC Glucose 204 H Hemoglobin A1c Lactic Acid Calcium Magnesium Ferritin Total Bilirubin AST ALT Alkaline Phosphatase Lactate Dehydrogenase Total Creatine Kinase C-Reactive Protein Total Protein Albumin Triglycerides Arterial Blood Glucose Arterial Blood Ionized Calcium Ur Specific [place] Urine WBC (Auto) Vancomycin Trough Coronavirus (PCR) Positive A 12/13/20 12/13/20 12/13/20 11:30 12:01 18:04 WBC RBC Hgb Hct RDW Plt Count Lymph % (Auto) [place] % (Auto) Lymph # (Auto) [place] # (Auto) Baso # (Auto) Seg Neutrophils % Seg Neuts % (Manual) Lymphocytes % (Manual) Seg Neutrophils # Seg Neutrophils # Man Lymphocytes # (Manual) D-Dimer ABG pH POC ABG pCO2 POC ABG pO2 ABG pO2 ABG HCO3 ABG O2 Saturation ABG Base Excess ABG Hemoglobin ABG Oxyhemoglobin ABG Sodium ABG Potassium ABG Chloride ABG Glucose Oxyhemoglobin Carboxyhemoglobin Sodium 132 L Potassium Chloride 90.1 L Carbon Dioxide 41 H* D BUN Creatinine 0.2 L Glucose 249 H POC Glucose 224 H 172 H Hemoglobin A1c Lactic Acid Calcium 7.4 L Magnesium Ferritin Total Bilirubin AST ALT 61 H Alkaline Phosphatase Lactate Dehydrogenase Total Creatine Kinase C-Reactive Protein Total Protein 5.7 L Albumin 2.3 L Triglycerides Arterial Blood Glucose Arterial Blood Ionized Calcium Ur Specific [place] Urine WBC (Auto) Vancomycin Trough Coronavirus (PCR) 12/13/20 12/14/20 12/14/20 23:37 04:05 04:35 WBC RBC 3.37 L Hgb 10.1 L Hct 30.7 L RDW 15.4 H Plt Count Lymph % (Auto) [place] % (Auto) Lymph # (Auto) [place] # (Auto) Baso # (Auto) Seg Neutrophils % Seg Neuts % (Manual) 93.0 H Lymphocytes % (Manual) 3.0 L Seg Neutrophils # Seg Neutrophils # Man 7.8 H Lymphocytes # (Manual) 0.3 L D-Dimer ABG pH POC ABG pCO2 72.2 H POC ABG pO2 61.5 L ABG pO2 ABG HCO3 ABG O2 Saturation ABG Base Excess ABG Hemoglobin ABG Oxyhemoglobin 89.9 L ABG Sodium 131.4 L ABG Potassium ABG Chloride 91.0 L ABG Glucose 205 H Oxyhemoglobin Carboxyhemoglobin Sodium Potassium Chloride Carbon Dioxide BUN Creatinine Glucose POC Glucose 200 H Hemoglobin A1c Lactic Acid Calcium Magnesium Ferritin Total Bilirubin AST ALT Alkaline Phosphatase Lactate Dehydrogenase Total Creatine Kinase C-Reactive Protein Total Protein Albumin Triglycerides Arterial Blood Glucose 205 H Arterial Blood Ionized Calcium 4.3 L Ur Specific [place] Urine WBC (Auto) Vancomycin Trough Coronavirus (PCR) 12/14/20 12/14/20 12/14/20 04:35 05:12 11:31 WBC RBC Hgb Hct RDW Plt Count Lymph % (Auto) [place] % (Auto) Lymph # (Auto) [place] # (Auto) Baso # (Auto) Seg Neutrophils % Seg Neuts % (Manual) Lymphocytes % (Manual) Seg Neutrophils # Seg Neutrophils # Man Lymphocytes # (Manual) D-Dimer ABG pH POC ABG pCO2 POC ABG pO2 ABG pO2 ABG HCO3 ABG O2 Saturation ABG Base Excess ABG Hemoglobin ABG Oxyhemoglobin ABG Sodium ABG Potassium ABG Chloride ABG Glucose Oxyhemoglobin Carboxyhemoglobin Sodium 135 L Potassium Chloride 92.5 L Carbon Dioxide 38 H BUN Creatinine 0.2 L Glucose 184 H POC Glucose 176 H 212 H Hemoglobin A1c Lactic Acid Calcium 7.7 L Magnesium Ferritin Total Bilirubin AST ALT Alkaline Phosphatase Lactate Dehydrogenase Total Creatine Kinase C-Reactive Protein Total Protein Albumin Triglycerides Arterial Blood Glucose Arterial Blood Ionized Calcium Ur Specific [place] Urine WBC (Auto) Vancomycin Trough Coronavirus (PCR) 12/14/20 12/14/20 12/15/20 17:30 23:30 03:19 WBC RBC Hgb Hct RDW Plt Count Lymph % (Auto) [place] % (Auto) Lymph # (Auto) [place] # (Auto) Baso # (Auto) Seg Neutrophils % Seg Neuts % (Manual) Lymphocytes % (Manual) Seg Neutrophils # Seg Neutrophils # Man Lymphocytes # (Manual) D-Dimer ABG pH POC ABG pCO2 62.0 H POC ABG pO2 66.0 L ABG pO2 ABG HCO3 ABG O2 Saturation ABG Base Excess ABG Hemoglobin 10.3 L ABG Oxyhemoglobin ABG Sodium 130.5 L ABG Potassium ABG Chloride 91.0 L ABG Glucose 166 H Oxyhemoglobin Carboxyhemoglobin Sodium Potassium Chloride Carbon Dioxide BUN Creatinine Glucose POC Glucose 222 H 176 H Hemoglobin A1c Lactic Acid Calcium Magnesium Ferritin Total Bilirubin AST ALT Alkaline Phosphatase Lactate Dehydrogenase Total Creatine Kinase C-Reactive Protein Total Protein Albumin Triglycerides Arterial Blood Glucose 166 H Arterial Blood Ionized Calcium 4.4 L Ur Specific [place] Urine WBC (Auto) Vancomycin Trough Coronavirus (PCR) 12/15/20 12/15/20 12/15/20 05:24 11:39 17:30 WBC RBC Hgb Hct RDW Plt Count Lymph % (Auto) [place] % (Auto) Lymph # (Auto) [place] # (Auto) Baso # (Auto) Seg Neutrophils % Seg Neuts % (Manual) Lymphocytes % (Manual) Seg Neutrophils # Seg Neutrophils # Man Lymphocytes # (Manual) D-Dimer ABG pH POC ABG pCO2 POC ABG pO2 ABG pO2 ABG HCO3 ABG O2 Saturation ABG Base Excess ABG Hemoglobin ABG Oxyhemoglobin ABG Sodium ABG Potassium ABG Chloride ABG Glucose Oxyhemoglobin Carboxyhemoglobin Sodium Potassium Chloride Carbon Dioxide BUN Creatinine Glucose POC Glucose 160 H 140 H 246 H Hemoglobin A1c Lactic Acid Calcium Magnesium Ferritin Total Bilirubin AST ALT Alkaline Phosphatase Lactate Dehydrogenase Total Creatine Kinase C-Reactive Protein Total Protein Albumin Triglycerides Arterial Blood Glucose Arterial Blood Ionized Calcium Ur Specific [place] Urine WBC (Auto) Vancomycin Trough Coronavirus (PCR) 12/15/20 12/16/20 12/16/20 23:42 03:54 04:46 WBC RBC 3.48 L Hgb 10.6 L Hct 31.5 L RDW 15.8 H Plt Count Lymph % (Auto) [place] % (Auto) Lymph # (Auto) [place] # (Auto) Baso # (Auto) Seg Neutrophils % Seg Neuts % (Manual) Lymphocytes % (Manual) Seg Neutrophils # Seg Neutrophils # Man Lymphocytes # (Manual) D-Dimer ABG pH POC ABG pCO2 63.6 H POC ABG pO2 55.0 L ABG pO2 ABG HCO3 ABG O2 Saturation ABG Base Excess ABG Hemoglobin 11.1 L ABG Oxyhemoglobin 87.3 L ABG Sodium 130.7 L ABG Potassium ABG Chloride 89.0 L ABG Glucose 211 H Oxyhemoglobin Carboxyhemoglobin Sodium Potassium Chloride Carbon Dioxide BUN Creatinine Glucose POC Glucose 139 H Hemoglobin A1c Lactic Acid Calcium Magnesium Ferritin Total Bilirubin AST ALT Alkaline Phosphatase Lactate Dehydrogenase Total Creatine Kinase C-Reactive Protein Total Protein Albumin Triglycerides Arterial Blood Glucose 211 H Arterial Blood Ionized Calcium 4.3 L Ur Specific [place] Urine WBC (Auto) Vancomycin Trough Coronavirus (PCR) 12/16/20 12/16/20 12/16/20 04:46 05:34 11:40 WBC RBC Hgb Hct RDW Plt Count Lymph % (Auto) [place] % (Auto) Lymph # (Auto) [place] # (Auto) Baso # (Auto) Seg Neutrophils % Seg Neuts % (Manual) Lymphocytes % (Manual) Seg Neutrophils # Seg Neutrophils # Man Lymphocytes # (Manual) D-Dimer ABG pH POC ABG pCO2 POC ABG pO2 ABG pO2 ABG HCO3 ABG O2 Saturation ABG Base Excess ABG Hemoglobin ABG Oxyhemoglobin ABG Sodium ABG Potassium ABG Chloride ABG Glucose Oxyhemoglobin Carboxyhemoglobin Sodium 134 L Potassium Chloride 89.7 L Carbon Dioxide 38 H BUN Creatinine < 0.2 L Glucose 203 H POC Glucose 155 H 239 H Hemoglobin A1c Lactic Acid Calcium 7.5 L Magnesium Ferritin Total Bilirubin AST ALT Alkaline Phosphatase Lactate Dehydrogenase Total Creatine Kinase C-Reactive Protein Total Protein Albumin Triglycerides Arterial Blood Glucose Arterial Blood Ionized Calcium Ur Specific [place] Urine WBC (Auto) Vancomycin Trough Coronavirus (PCR) 12/16/20 12/16/20 12/17/20 17:42 23:45 03:59 WBC RBC Hgb Hct RDW Plt Count Lymph % (Auto) [place] % (Auto) Lymph # (Auto) [place] # (Auto) Baso # (Auto) Seg Neutrophils % Seg Neuts % (Manual) Lymphocytes % (Manual) Seg Neutrophils # Seg Neutrophils # Man Lymphocytes # (Manual) D-Dimer ABG pH POC ABG pCO2 71.9 H POC ABG pO2 57.5 L ABG pO2 ABG HCO3 ABG O2 Saturation ABG Base Excess ABG Hemoglobin 10.8 L ABG Oxyhemoglobin 87.7 L ABG Sodium 131.5 L ABG Potassium ABG Chloride 90.0 L ABG Glucose 199 H Oxyhemoglobin Carboxyhemoglobin Sodium Potassium Chloride Carbon Dioxide BUN Creatinine Glucose POC Glucose 228 H 187 H Hemoglobin A1c Lactic Acid Calcium Magnesium Ferritin Total Bilirubin AST ALT Alkaline Phosphatase Lactate Dehydrogenase Total Creatine Kinase C-Reactive Protein Total Protein Albumin Triglycerides Arterial Blood Glucose 199 H Arterial Blood Ionized Calcium 4.4 L Ur Specific [place] Urine WBC (Auto) Vancomycin Trough Coronavirus (PCR) 12/17/20 12/17/20 12/17/20 05:35 11:55 17:25 WBC RBC Hgb Hct RDW Plt Count Lymph % (Auto) [place] % (Auto) Lymph # (Auto) [place] # (Auto) Baso # (Auto) Seg Neutrophils % Seg Neuts % (Manual) Lymphocytes % (Manual) Seg Neutrophils # Seg Neutrophils # Man Lymphocytes # (Manual) D-Dimer ABG pH POC ABG pCO2 POC ABG pO2 ABG pO2 ABG HCO3 ABG O2 Saturation ABG Base Excess ABG Hemoglobin ABG Oxyhemoglobin ABG Sodium ABG Potassium ABG Chloride ABG Glucose Oxyhemoglobin Carboxyhemoglobin Sodium 134 L Potassium Chloride 89.6 L Carbon Dioxide 44 H* BUN Creatinine 0.2 L Glucose 280 H POC Glucose 159 H 181 H Hemoglobin A1c Lactic Acid Calcium 8.0 L Magnesium 1.60 L Ferritin Total Bilirubin AST ALT Alkaline Phosphatase Lactate Dehydrogenase Total Creatine Kinase C-Reactive Protein Total Protein 6.2 L Albumin 2.1 L Triglycerides Arterial Blood Glucose Arterial Blood Ionized Calcium Ur Specific [place] Urine WBC (Auto) Vancomycin Trough Coronavirus (PCR) 12/17/20 12/17/20 12/18/20 17:25 17:51 00:12 WBC RBC Hgb Hct RDW Plt Count Lymph % (Auto) [place] % (Auto) Lymph # (Auto) [place] # (Auto) Baso # (Auto) Seg Neutrophils % Seg Neuts % (Manual) Lymphocytes % (Manual) Seg Neutrophils # Seg Neutrophils # Man Lymphocytes # (Manual) D-Dimer ABG pH POC ABG pCO2 POC ABG pO2 ABG pO2 ABG HCO3 ABG O2 Saturation ABG Base Excess ABG Hemoglobin ABG Oxyhemoglobin ABG Sodium ABG Potassium ABG Chloride ABG Glucose Oxyhemoglobin Carboxyhemoglobin Sodium Potassium Chloride Carbon Dioxide BUN Creatinine Glucose POC Glucose 260 H 197 H Hemoglobin A1c Lactic Acid Calcium Magnesium Ferritin Total Bilirubin AST ALT Alkaline Phosphatase Lactate Dehydrogenase Total Creatine Kinase 47 L C-Reactive Protein Total Protein Albumin Triglycerides Arterial Blood Glucose Arterial Blood Ionized Calcium Ur Specific [place] Urine WBC (Auto) Vancomycin Trough Coronavirus (PCR) 12/18/20 12/18/20 12/18/20 03:56 04:32 04:32 WBC RBC 2.88 L Hgb 8.6 L Hct 26.0 L RDW 15.6 H Plt Count Lymph % (Auto) [place] % (Auto) Lymph # (Auto) [place] # (Auto) Baso # (Auto) Seg Neutrophils % Seg Neuts % (Manual) Lymphocytes % (Manual) Seg Neutrophils # Seg Neutrophils # Man Lymphocytes # (Manual) D-Dimer ABG pH POC ABG pCO2 78.0 H POC ABG pO2 52.3 L ABG pO2 ABG HCO3 ABG O2 Saturation ABG Base Excess ABG Hemoglobin 11.7 L ABG Oxyhemoglobin 84.9 L ABG Sodium 131.6 L ABG Potassium ABG Chloride 89.0 L ABG Glucose 191 H Oxyhemoglobin Carboxyhemoglobin Sodium 134 L Potassium Chloride 89.5 L Carbon Dioxide 43 H* BUN Creatinine < 0.2 L Glucose 182 H POC Glucose Hemoglobin A1c Lactic Acid Calcium 8.1 L Magnesium Ferritin Total Bilirubin AST ALT Alkaline Phosphatase Lactate Dehydrogenase Total Creatine Kinase C-Reactive Protein Total Protein Albumin Triglycerides Arterial Blood Glucose 191 H Arterial Blood Ionized Calcium 4.4 L Ur Specific [place] Urine WBC (Auto) Vancomycin Trough Coronavirus (PCR) 12/18/20 12/18/20 12/18/20 05:19 08:27 11:37 WBC RBC Hgb Hct RDW Plt Count Lymph % (Auto) [place] % (Auto) Lymph # (Auto) [place] # (Auto) Baso # (Auto) Seg Neutrophils % Seg Neuts % (Manual) Lymphocytes % (Manual) Seg Neutrophils # Seg Neutrophils # Man Lymphocytes # (Manual) D-Dimer ABG pH POC ABG pCO2 POC ABG pO2 ABG pO2 ABG HCO3 ABG O2 Saturation ABG Base Excess ABG Hemoglobin ABG Oxyhemoglobin ABG Sodium ABG Potassium ABG Chloride ABG Glucose Oxyhemoglobin Carboxyhemoglobin Sodium 131 L Potassium Chloride 89.0 L Carbon Dioxide 41 H* BUN Creatinine < 0.2 L Glucose 176 H POC Glucose 165 H 174 H Hemoglobin A1c Lactic Acid Calcium 7.5 L Magnesium Ferritin Total Bilirubin AST ALT Alkaline Phosphatase Lactate Dehydrogenase Total Creatine Kinase C-Reactive Protein Total Protein Albumin Triglycerides Arterial Blood Glucose Arterial Blood Ionized Calcium Ur Specific [place] Urine WBC (Auto) Vancomycin Trough Coronavirus (PCR) 12/18/20 12/18/20 12/19/20 17:26 23:19 03:41 WBC RBC Hgb Hct RDW Plt Count Lymph % (Auto) [place] % (Auto) Lymph # (Auto) [place] # (Auto) Baso # (Auto) Seg Neutrophils % Seg Neuts % (Manual) Lymphocytes % (Manual) Seg Neutrophils # Seg Neutrophils # Man Lymphocytes # (Manual) D-Dimer ABG pH POC ABG pCO2 75.4 H POC ABG pO2 50.7 L ABG pO2 ABG HCO3 ABG O2 Saturation ABG Base Excess ABG Hemoglobin 10.4 L ABG Oxyhemoglobin 84.2 L ABG Sodium 131.1 L ABG Potassium ABG Chloride 89.0 L ABG Glucose 194 H Oxyhemoglobin Carboxyhemoglobin 1.6 H Sodium Potassium Chloride Carbon Dioxide BUN Creatinine Glucose POC Glucose 243 H 212 H Hemoglobin A1c Lactic Acid Calcium Magnesium Ferritin Total Bilirubin AST ALT Alkaline Phosphatase Lactate Dehydrogenase Total Creatine Kinase C-Reactive Protein Total Protein Albumin Triglycerides Arterial Blood Glucose 194 H Arterial Blood Ionized Calcium 4.3 L Ur Specific [place] Urine WBC (Auto) Vancomycin Trough Coronavirus (PCR) 12/19/20 12/19/20 12/19/20 05:26 11:56 18:17 WBC RBC Hgb Hct RDW Plt Count Lymph % (Auto) [place] % (Auto) Lymph # (Auto) [place] # (Auto) Baso # (Auto) Seg Neutrophils % Seg Neuts % (Manual) Lymphocytes % (Manual) Seg Neutrophils # Seg Neutrophils # Man Lymphocytes # (Manual) D-Dimer ABG pH POC ABG pCO2 POC ABG pO2 ABG pO2 ABG HCO3 ABG O2 Saturation ABG Base Excess ABG Hemoglobin ABG Oxyhemoglobin ABG Sodium ABG Potassium ABG Chloride ABG Glucose Oxyhemoglobin Carboxyhemoglobin Sodium Potassium Chloride Carbon Dioxide BUN Creatinine Glucose POC Glucose 166 H 173 H 212 H Hemoglobin A1c Lactic Acid Calcium Magnesium Ferritin Total Bilirubin AST ALT Alkaline Phosphatase Lactate Dehydrogenase Total Creatine Kinase C-Reactive Protein Total Protein Albumin Triglycerides Arterial Blood Glucose Arterial Blood Ionized Calcium Ur Specific [place] Urine WBC (Auto) Vancomycin Trough Coronavirus (PCR) 12/19/20 12/19/20 12/20/20 23:39 Unknown 03:26 WBC RBC Hgb Hct RDW Plt Count Lymph % (Auto) [place] % (Auto) Lymph # (Auto) [place] # (Auto) Baso # (Auto) Seg Neutrophils % Seg Neuts % (Manual) Lymphocytes % (Manual) Seg Neutrophils # Seg Neutrophils # Man Lymphocytes # (Manual) D-Dimer ABG pH POC ABG pCO2 74.2 H POC ABG pO2 51.3 L ABG pO2 ABG HCO3 ABG O2 Saturation ABG Base Excess ABG Hemoglobin 10.0 L ABG Oxyhemoglobin ABG Sodium 128.9 L ABG Potassium ABG Chloride 87.0 L ABG Glucose 173 H Oxyhemoglobin Carboxyhemoglobin Sodium 133 L Potassium Chloride 89.9 L Carbon Dioxide 39 H BUN Creatinine 0.2 L Glucose 197 H POC Glucose 133 H Hemoglobin A1c Lactic Acid Calcium 7.6 L Magnesium Ferritin Total Bilirubin AST ALT Alkaline Phosphatase Lactate Dehydrogenase Total Creatine Kinase C-Reactive Protein Total Protein Albumin Triglycerides Arterial Blood Glucose 173 H Arterial Blood Ionized Calcium 4.1 L Ur Specific [place] Urine WBC (Auto) Vancomycin Trough Coronavirus (PCR) 12/20/20 12/20/20 12/20/20 04:00 04:00 05:05 WBC RBC 3.21 L Hgb 9.6 L Hct 29.2 L RDW 15.8 H Plt Count Lymph % (Auto) [place] % (Auto) Lymph # (Auto) [place] # (Auto) Baso # (Auto) Seg Neutrophils % Seg Neuts % (Manual) Lymphocytes % (Manual) Seg Neutrophils # Seg Neutrophils # Man Lymphocytes # (Manual) D-Dimer ABG pH POC ABG pCO2 POC ABG pO2 ABG pO2 ABG HCO3 ABG O2 Saturation ABG Base Excess ABG Hemoglobin ABG Oxyhemoglobin ABG Sodium ABG Potassium ABG Chloride ABG Glucose Oxyhemoglobin Carboxyhemoglobin Sodium 132 L Potassium Chloride 86.0 L Carbon Dioxide 43 H* BUN Creatinine 0.2 L Glucose 193 H POC Glucose 171 H Hemoglobin A1c Lactic Acid Calcium 7.6 L Magnesium Ferritin Total Bilirubin AST ALT Alkaline Phosphatase Lactate Dehydrogenase Total Creatine Kinase C-Reactive Protein Total Protein Albumin Triglycerides Arterial Blood Glucose Arterial Blood Ionized Calcium Ur Specific [place] Urine WBC (Auto) Vancomycin Trough Coronavirus (PCR) 12/20/20 12/20/20 12/20/20 11:47 18:18 23:41 WBC RBC Hgb Hct RDW Plt Count Lymph % (Auto) [place] % (Auto) Lymph # (Auto) [place] # (Auto) Baso # (Auto) Seg Neutrophils % Seg Neuts % (Manual) Lymphocytes % (Manual) Seg Neutrophils # Seg Neutrophils # Man Lymphocytes # (Manual) D-Dimer ABG pH POC ABG pCO2 POC ABG pO2 ABG pO2 ABG HCO3 ABG O2 Saturation ABG Base Excess ABG Hemoglobin ABG Oxyhemoglobin ABG Sodium ABG Potassium ABG Chloride ABG Glucose Oxyhemoglobin Carboxyhemoglobin Sodium Potassium Chloride Carbon Dioxide BUN Creatinine Glucose POC Glucose 238 H 205 H 167 H Hemoglobin A1c Lactic Acid Calcium Magnesium Ferritin Total Bilirubin AST ALT Alkaline Phosphatase Lactate Dehydrogenase Total Creatine Kinase C-Reactive Protein Total Protein Albumin Triglycerides Arterial Blood Glucose Arterial Blood Ionized Calcium Ur Specific [place] Urine WBC (Auto) Vancomycin Trough Coronavirus (PCR) 12/21/20 12/21/20 12/21/20 03:30 05:37 09:57 WBC RBC Hgb Hct RDW Plt Count Lymph % (Auto) [place] % (Auto) Lymph # (Auto) [place] # (Auto) Baso # (Auto) Seg Neutrophils % Seg Neuts % (Manual) Lymphocytes % (Manual) Seg Neutrophils # Seg Neutrophils # Man Lymphocytes # (Manual) D-Dimer ABG pH POC ABG pCO2 73.4 H POC ABG pO2 63.0 L ABG pO2 ABG HCO3 ABG O2 Saturation ABG Base Excess ABG Hemoglobin 10.1 L ABG Oxyhemoglobin ABG Sodium 130.5 L ABG Potassium ABG Chloride 89.0 L ABG Glucose 171 H Oxyhemoglobin Carboxyhemoglobin Sodium 132 L Potassium Chloride 87.7 L Carbon Dioxide 42 H* BUN Creatinine 0.2 L Glucose 207 H POC Glucose 152 H Hemoglobin A1c Lactic Acid Calcium 7.7 L Magnesium Ferritin Total Bilirubin AST ALT Alkaline Phosphatase Lactate Dehydrogenase Total Creatine Kinase C-Reactive Protein Total Protein Albumin Triglycerides Arterial Blood Glucose 171 H Arterial Blood Ionized Calcium 4.2 L Ur Specific [place] Urine WBC (Auto) Vancomycin Trough Coronavirus (PCR) 12/21/20 12/21/20 12/21/20 12:54 18:00 Unknown WBC RBC Hgb Hct RDW Plt Count Lymph % (Auto) [place] % (Auto) Lymph # (Auto) [place] # (Auto) Baso # (Auto) Seg Neutrophils % Seg Neuts % (Manual) Lymphocytes % (Manual) Seg Neutrophils # Seg Neutrophils # Man Lymphocytes # (Manual) D-Dimer ABG pH POC ABG pCO2 POC ABG pO2 ABG pO2 ABG HCO3 ABG O2 Saturation ABG Base Excess ABG Hemoglobin ABG Oxyhemoglobin ABG Sodium ABG Potassium ABG Chloride ABG Glucose Oxyhemoglobin Carboxyhemoglobin Sodium Potassium Chloride Carbon Dioxide BUN Creatinine Glucose POC Glucose 199 H 217 H Hemoglobin A1c Lactic Acid Calcium Magnesium Ferritin Total Bilirubin AST ALT Alkaline Phosphatase Lactate Dehydrogenase Total Creatine Kinase C-Reactive Protein Total Protein Albumin Triglycerides Arterial Blood Glucose Arterial Blood Ionized Calcium Ur Specific [place] Urine WBC (Auto) 172.0 H Vancomycin Trough Coronavirus (PCR) 12/22/20 12/22/20 12/22/20 00:02 04:08 05:19 WBC RBC Hgb Hct RDW Plt Count Lymph % (Auto) [place] % (Auto) Lymph # (Auto) [place] # (Auto) Baso # (Auto) Seg Neutrophils % Seg Neuts % (Manual) Lymphocytes % (Manual) Seg Neutrophils # Seg Neutrophils # Man Lymphocytes # (Manual) D-Dimer ABG pH POC ABG pCO2 67.6 H POC ABG pO2 57.3 L ABG pO2 ABG HCO3 ABG O2 Saturation ABG Base Excess ABG Hemoglobin ABG Oxyhemoglobin ABG Sodium 130.9 L ABG Potassium ABG Chloride 92.0 L ABG Glucose 163 H Oxyhemoglobin Carboxyhemoglobin Sodium Potassium Chloride Carbon Dioxide BUN Creatinine Glucose POC Glucose 172 H 151 H Hemoglobin A1c Lactic Acid Calcium Magnesium Ferritin Total Bilirubin AST ALT Alkaline Phosphatase Lactate Dehydrogenase Total Creatine Kinase C-Reactive Protein Total Protein Albumin Triglycerides Arterial Blood Glucose 163 H Arterial Blood Ionized Calcium 4.2 L Ur Specific [place] Urine WBC (Auto) Vancomycin Trough Coronavirus (PCR)
--- NOTE | 2020-12-22 13:35 | Progress Note ---
Assessment and Plan Cultures: SARS CoV-2 PCR: positive Blood culture: No growth 11/21/2020 tracheal aspirate culture: MRSA 12/09/2020 blood culture: no growth 12/09/2020 sputum culture: Klebsiella 12/17/2020 blood culture: 1 bottle with coag negative staph, second bottle with Enterococcus faecalis 12/17/2020 tracheal aspirate culture: Usual respiratory zachariah 12/21/2020 blood culture: No growth A/P: 59-year-old male with: #Shock: on pressors. Febrile, restarted abx on 12/17/2020. #GPC bacteremia: source unclear. Typically, Enterococcus is not considered a contaminant, however only present in 1 out of 4 bottles while another set is growing coag negative staph. #Bilateral pneumonia: secondary to COVID-19. Completed abx, remdesivir. #Klebsiella on ET aspirate culture: ?colonization v/s true disease, difficult to differentiate. Will treat given development of low-grade temperatures and white count. #B/L pneumothorax and pneumomediastinum: s/p chest tubes. #Acute hypoxic respiratory failure: Remains on the vent. #Elevated d-dimer: DVT scan negative. Was unable to get CTA Chest due to patients unstable clinical status #Transaminitis: secondary to COVID-19. Recs: -discontinued IV Cefepime and Vancomycin -Antibiotics de-escalated to IV ampicillin -If repeat blood cultures are negative, would complete 14 days of ampicillin -f/u repeat blood cultures to ensure clearance -very poor prognosis, consider DNR status Dayday Driscoll MD, FACP [facility] ([facility] O: [phone] F: [phone] Subjective Date of service: 12/22/20 Principal diagnosis: COVID-19 Interval history: Had fever yesterday, none today. Remains on the vent, high requirements. Remains on pressors. Objective - Exam Narrative Exam: Physical Exam (reviewed in chart to minimize risk of transmission) Constitutional: deferred Head, Ears, Nose: deferred Eyes: deferred Neck: deferred Oral: deferred Cardiovascular: deferred Respiratory: deferred GI: deferred Musculoskeletal: deferred Skin: deferred Hem/Lymphatic: deferred Psych: deferred Neurological: deferred - Constitutional Vitals: Vital Signs Temp Pulse Resp BP Pulse Ox 97.9 F 101 H 30 H 133/73 94 12/22/20 12:00 12/22/20 11:10 12/22/20 11:00 12/22/20 11:10 12/22/20 11:10 Temperature -Last 24 Hours Temperature 97.9 F Temperature 98.9 F Temperature 98.6 F Temperature 98.8 F Temperature 98.4 F Temperature 100.0 F - Labs CBC & Chem 7: 12/20/20 04:00 12/21/20 09:57 Labs: Abnormal lab results 12/21/20 12/21/20 12/21/20 Range/Units 12:54 18:00 Unknown POC ABG pCO2 (32.0-48.0) mmHg POC ABG pO2 (83-108) mmHg ABG Sodium (136.0-145.0) mmol/L ABG Chloride (98-107) mmol/L ABG Glucose (65-95) mg/dL POC Glucose 199 H 217 H (70-105) mg/dL Arterial Blood Glucose (65-95) mg/dL Arterial Blood Ionized Calcium (4.6-5.3) mg/dL Urine WBC (Auto) 172.0 H (0.0-6.0) /HPF 12/22/20 12/22/20 12/22/20 Range/Units 00:02 04:08 05:19 POC ABG pCO2 67.6 H (32.0-48.0) mmHg POC ABG pO2 57.3 L (83-108) mmHg ABG Sodium 130.9 L (136.0-145.0) mmol/L ABG Chloride 92.0 L (98-107) mmol/L ABG Glucose 163 H (65-95) mg/dL POC Glucose 172 H 151 H (70-105) mg/dL Arterial Blood Glucose 163 H (65-95) mg/dL Arterial Blood Ionized Calcium 4.2 L (4.6-5.3) mg/dL Urine WBC (Auto) (0.0-6.0) /HPF
[2020-12-22] MEDS: AMPICILLIN/NS 2 GM/100 ML 2 GM/100 ML BAG IV SCH ×2 (15:44→19:45)
--- NOTE | 2020-12-22 16:51 | Progress Note ---
Assessment and Plan Assessment and plan: -Antibiotic deescalated to ampicillin as blood cultures grew Enterococcus in 1/4 bottles and the other set grew coag negative staph -Repeat blood cultures -Wean mechanical ventilation for SPO2 greater than 88% and PaO2 greater than 55 mmHg on ABG -Wean mechanical ventilation as tolerated, VAP bundle, CXR/ABG -Bilateral chest tubes to wall suction -Trend BMP -SSI, long-acting insulin DVT/GI prophylaxis: SCDs to bilateral lower limbs while in bed, Lovenox subcu, PPI Disposition: ICU History Interval history: 59-year-old female who is smoker who presented to [facility] with shortness of breath cough fever weakness for 1 to 2 days prior to arrival. Per EMS the patient was severely hypoxic with saturations in the low 80s. With all oxygen and nonrebreather came down to low 90s. ID, pulmonary, CCM were consulted. Septic Shock Coag Negative staph/Entrococcus bactermia MRSA/Klebsiella in sputum COVID-19 pneumonia Acute hypoxic hypercapnic respiratory failure Bilateral pneumothorax Pneumomediastinum with subcutaneous emphysema Elevated D-dimer Transaminitis secondary to Covid 19 Klebsiella pneumonia Type 2 diabetes mellitus Severe protien calorie malnutrition secondary to critical illness Hyponatremia Hypochloremia Metabolic alkalosis Hypercapnia Hypoxemia 2/1: Patient continues on BiPAP throughout the night. Labs are remarkable for hypoxia with improving renal function but lactic acidosis without fever. CTA has been ordered to rule out pulmonary embolism. I agree with increasing enoxaparin to twice daily full dose for empiric treatment of pulmonary embolism. Will obtain ID consultation on further evaluation for possible underlying pneumonia versus COVID-19. We will also obtain echocardiogram for evaluation. Will discontinue fluids at this time. 2/2; Continue supportive care, Patient remains with very guarded prognosis, remains on BiPAP, continues on Remdesivir, and steroids. Will continue anticoagulation, unable to get CTA Chest due to patients unstable clinical status. Will adjust insulin for better blood glucose 2/3: Continues on BIPAP, no clear improvement at this time. Will continue steroids therapy Remdesivir and also Full anticoagulation at this time. Will update family. Discussed with Ems Driver. 2: Taking a break from the BiPAP on high flow and nonrebreather 100% with saturation of 90% becomes hypoxic with any movement. Ems Driver input noted will get a dose of Lasix today. Will await a discussion with ID for possibly increasing steroid. I updated Patient's Cousin, Tayla Esquivel who is the emergency personal injury paralegal. Blood sugar remains fluctuating secondary to steriods, Encouraged Prone positioning. Noted with mild hyponatremia we will continue to monitor and manage 2: Continue supportive care wean oxygen as tolerated prognosis remains guarded. Encouraged to progress as tolerated. Awaiting labs today. Discussed with nursing staff and patient at bedside. 11/21: Discontinued Dexamethasone as Solumedrol started secondary to increased oxygen demand. Will give additional insulin for better control. Continue oxygen support patient still on high flow. Prognosis still guarded 11/22: Patient was intubated and placed on mechanical ventilation. Continue current medication. Will check a.m. labs today. Noted still with hypotension. Doubt septic shock at this time as patient has no new fever. Will adjust insulin for better blood sugar control. 11/23: Patient admitted with COVID-19 despite all efforts patient remains severely hypoxic and now is intubated. Ems Driver input noted. Blood pressure marginal at this time. Very poor prognosis. Continue Solu-Medrol. 11/24. Patient remains very hypoxic. Blood pressure borderline. Plan for initiation of paralytic agents as per record label internship. Patient may need to be transferred if no improvement. 11/26. Off paralytics. Remains intubated. On steroids. Prognosis is poor. 11/27. Chest xray shows pneumomediastinum and subcutaneous emphysema. Surgery consulted. Plan for chest tube placement. Sputum culture grew MRSA. Patient started on vancomycin per ID. 11/28. Right chest tube placed yesterday by surgery. Repeat chest x-ray showed left small pneumothorax. Plan for chest tube placement on the left today. Remains on paralytic agents. 11/29. Remains intubated on vent. Had left chest tube placed yesterday. Vitals reviewed. Critical care following 11/30/ Remains on mechanical ventilation. Worsening hypoxia. Bilateral chest tubes in place. Vitals reviewed. Labs reviewed 12/01: Chest tube and mechanical ventilation remains in place, poor prognosis, FIO2 remains at 90%, adjust insulin for better blood glucose control 12/02: Patient remains on full ventilatory support and steroids, still with worsening leukocytosis ?inflammatory or infectious vs steroids. Continue vancomycin. 12/03; slowly weaning, 12/04: Still on the vent FiO2 down to 65% PEEP remains at 18. Still with poor prognosis. 12/05: Patient continues on full ventilatory support per record label internship PEEP remains at 18. Still with hypercapnic respiratory failure. FiO2 down to 60% this morning. Chest tube to suction still weaning off steroids in the deliberation ongoing for possible a third chest tube as last documentation by surgery shows no plan for it at this time. Continue to manage insulin for better blood sugar control. 12/06:weaned down to 60%, continue supportive care, unable to wean, 12/07; patient remains intubated on ventilatory support, chest tubes in place trach and PEG when patient's Covid test is negative,Per surgery. 12/08; Patient remains intubated remains with hypercapnia and hypoxia. Chest tube still remain in place. He is off antibiotics at this time. Continue steroids which is likely resultant to the leukocytosis. Ems Driver and surgeon following ID input is noted. Prognosis remains guarded to poor 12/10; patient remains intubated on vent, unable to wean awaiting trach and PEG when Covid test is negative, Continue current management 12/11; patient awaiting trach and PEG when Covid test is negative, vent dependent, poor prognosis 12/12; clinically no change, vent dependent, Patient is critically ill with very poor prognosis, awaiting trach and PEG when COVID-19 test turns negative. Plan discussed with nursing staff. Caregivers have discussed with patient's family periodically 12/13: Patient is critically ill with very poor prognosis, awaiting trach and PEG when COVID-19 test turns negative. Plan discussed with nursing staff. Caregivers have discussed with patient's family periodically 12/14: Increase UOP which we will monitor and replete as needed. Patient remain hypoxemic on ABG despite 100 FiO2, remains on fentanyl, precedex, versed and levo gtt. 12/15: Patient remains sedated on fentanyl at 3 mcg, Versed at 30 mg, dexamethasone 0.3 and was on Levophed 6 mcg this morning. Patient's vent settings rate of 30, tidal volume 425, PEEP of 18, FiO2 of 85. RT attempted to wean as tolerated. No acute events reported overnight. Bilateral chest tubes to wall suction. 12/16: Overnight the patient was noted to be bradycardic, Precedex drip was increased to 0.6/fentanyl to 4 mcg/Versed 5 mg, bilateral chest tube to suction. Current vent settings for 425/30/18/0.75, RT to wean as tolerated 12/17: Patient's T-max overnight was 101.2, obtain CXR today, blood culture x2 per ID. Patient remains on fentanyl, Versed, Precedex and Levophed. Current vent settings AC 425/30/18/0.75, RT to wean as tolerated. Continue steroid taper. 12/18: Patient remains sedated on fentanyl, Versed, Precedex and has vasopressor support of Levophed, current vent settings 425/30/18/0.75 with bilateral chest tubes to wall suction. Patient's blood culture from 12/17 grew gram-positive cocci in pairs and chains however the patient is on vancomycin and cefepime. We will continue to follow for speciation and sensitivity. 12/19: Unfortunately remains on full ventilatory support prognosis remains very poor. No new fever however since 12/17. Continue to follow cultures not finalized yet. Antibiotics per ID critical care management input noted. Patient remains on high FiO2 and PEEP at this time. 12/20: Still with intermittent fever, likely secondary to covid 19, still with hyponatremia, continue with tube feed. cultures with coagulas negative staph, await further ID input. Continues on abx. 12/21: Patient remains on fentanyl, Precedex, Versed and Levophed and assist control for 25//18/.100 with bilateral chest tubes in place. Patient remains on antibiotic therapy. No acute events reported overnight. 12/22: Patient remains sedated on Precedex and fentanyl and on vasopressor support, blood cultures grew coag negative Staphylococcus and Enterococcus and antibiotic therapy was deescalated to ampicillin by infectious disease. This morning patient was on assist control for 25/30/18/0.100 and respiratory therapy to decrease FiO2 as tolerated. Hospitalist Physical - Constitutional Vitals: Temp Pulse Resp BP Pulse Ox 99.4 F 93 H 30 H 121/64 99 12/22/20 16:00 12/22/20 15:47 12/22/20 11:00 12/22/20 15:47 12/22/20 15:47 General appearance: Present: no acute distress, well-nourished, other (Vent dependent) - EENT Eyes: Present: EOM intact ENT: clear oral mucosa - Neck Neck: Present: normal ROM - Respiratory Respiratory effort: normal Respiratory: bilateral: diminished - Cardiovascular Rhythm: regular Heart Sounds: Present: S1 & S2. Absent: systolic murmur, diastolic murmur - Extremities Extremities: no ischemia, pulses intact, pulses symmetrical, No edema, normal temperature, normal color Peripheral Pulses: within normal limits - Abdominal General gastrointestinal: soft, non-tender, non-distended, normal bowel sounds - Integumentary Integumentary: Present: warm, dry - Psychiatric Psychiatric: other (Sedated) - Neurologic Neurologic: other (Sedated) HEART Score - HEART Score Troponin: Troponin T < 0.010 ng/mL (0.00-0.029) 12/11/20 06:30 Results - Labs CBC & Chem 7: 12/20/20 04:00 12/21/20 09:57 Labs: Laboratory Last Values WBC 9.4 K/mm3 (4.5-11.0) 12/20/20 04:00 RBC 3.21 M/mm3 (3.65-5.03) L 12/20/20 04:00 Hgb 9.6 gm/dl (11.8-15.2) L 12/20/20 04:00 Hct 29.2 % (35.5-45.6) L 12/20/20 04:00 MCV 91 fl (84-94) 12/20/20 04:00 MCH 30 pg (28-32) 12/20/20 04:00 MCHC 33 % (32-34) 12/20/20 04:00 RDW 15.8 % (13.2-15.2) H 12/20/20 04:00 Plt Count 309 K/mm3 (140-440) 12/20/20 04:00 Lymph % (Auto) 2.0 % (13.4-35.0) L 11/27/20 06:25 Waldo % (Auto) 5.2 % (0.0-7.3) 11/27/20 06:25 Eos % (Auto) 0.0 % (0.0-4.3) 11/27/20 06:25 Baso % (Auto) 0.1 % (0.0-1.8) 11/27/20 06:25 Lymph # (Auto) 0.3 K/mm3 (1.2-5.4) L 11/27/20 06:25 Waldo # (Auto) 0.7 K/mm3 (0.0-0.8) 11/27/20 06:25 Eos # (Auto) 0.0 K/mm3 (0.0-0.4) 11/27/20 06:25 Baso # (Auto) 0.0 K/mm3 (0.0-0.1) 11/27/20 06:25 Add Manual Diff Complete 12/14/20 04:35 Total Counted 100 12/14/20 04:35 Seg Neutrophils % Carving Machine Operator 12/14/20 04:35 Seg Neuts % (Manual) 93.0 % (40.0-70.0) H 12/14/20 04:35 Band Neutrophils % 2.0 % 12/13/20 11:30 Lymphocytes % (Manual) 3.0 % (13.4-35.0) L 12/14/20 04:35 Monocytes % (Manual) 4.0 % (0.0-7.3) 12/14/20 04:35 Nucleated RBC % Not Reportable 12/14/20 04:35 Seg Neutrophils # 12.7 K/mm3 (1.8-7.7) H 11/27/20 06:25 Seg Neutrophils # Man 7.8 K/mm3 (1.8-7.7) H 12/14/20 04:35 Band Neutrophils # 0.0 K/mm3 12/14/20 04:35 Lymphocytes # (Manual) 0.3 K/mm3 (1.2-5.4) L 12/14/20 04:35 Abs React Lymphs (Man) 0.0 K/mm3 12/14/20 04:35 Monocytes # (Manual) 0.3 K/mm3 (0.0-0.8) 12/14/20 04:35 Eosinophils # (Manual) 0.0 K/mm3 (0.0-0.4) 12/14/20 04:35 Basophils # (Manual) 0.0 K/mm3 (0.0-0.1) 12/14/20 04:35 Metamyelocytes # 0.0 K/mm3 12/14/20 04:35 Myelocytes # 0.0 K/mm3 12/14/20 04:35 Promyelocytes # 0.0 K/mm3 12/14/20 04:35 Blast Cells # 0.0 K/mm3 12/14/20 04:35 WBC Morphology Not Reportable 12/14/20 04:35 Hypersegmented Neuts Not Reportable 12/14/20 04:35 Hyposegmented Neuts Not Reportable 12/14/20 04:35 Hypogranular Neuts Not Reportable 12/14/20 04:35 Smudge Cells Not Reportable 12/14/20 04:35 Toxic Granulation Not Reportable 12/14/20 04:35 Toxic Vacuolation Not Reportable 12/14/20 04:35 Dohle Bodies Not Reportable 12/14/20 04:35 Pelger-Huet Anomaly Not Reportable 12/14/20 04:35 Tony Rods Not Reportable 12/14/20 04:35 Platelet Estimate Consistent w auto 12/14/20 04:35 Clumped Platelets Not Reportable 12/14/20 04:35 Plt Clumps, EDTA Not Reportable 12/14/20 04:35 Large Platelets Not Reportable 12/14/20 04:35 Giant Platelets Not Reportable 12/14/20 04:35 Platelet Satelliting Not Reportable 12/14/20 04:35 Plt Morphology Comment Not Reportable 12/14/20 04:35 RBC Morphology Not Reportable 12/14/20 04:35 Dimorphic RBCs Not Reportable 12/14/20 04:35 Polychromasia Not Reportable 12/14/20 04:35 Hypochromasia Few 12/14/20 04:35 Poikilocytosis Not Reportable 12/14/20 04:35 Anisocytosis Few 12/14/20 04:35 Microcytosis Not Reportable 12/14/20 04:35 Macrocytosis Not Reportable 12/14/20 04:35 Spherocytes Not Reportable 12/14/20 04:35 Pappenheimer Bodies Not Reportable 12/14/20 04:35 Sickle Cells Not Reportable 12/14/20 04:35 Target Cells Not Reportable 12/14/20 04:35 Tear Drop Cells Not Reportable 12/14/20 04:35 Ovalocytes Not Reportable 12/14/20 04:35 Stomatocytes 1+ 12/03/20 04:35 Helmet Cells Not Reportable 12/14/20 04:35 [place] Bodies Not Reportable 12/14/20 04:35 [place] Rings Not Reportable 12/14/20 04:35 [place] Cells Not Reportable 12/14/20 04:35 Bite Cells Not Reportable 12/14/20 04:35 Crenated Cell Not Reportable 12/14/20 04:35 Elliptocytes Not Reportable 12/14/20 04:35 Acanthocytes (Spur) Not Reportable 12/14/20 04:35 Rouleaux Not Reportable 12/14/20 04:35 Hemoglobin C Crystals Not Reportable 12/14/20 04:35 Schistocytes Not Reportable 12/14/20 04:35 Malaria parasites Not Reportable 12/14/20 04:35 Yovani Bodies Not Reportable 12/14/20 04:35 Hem Pathologist Commnt No 12/14/20 04:35 D-Dimer 926.11 ng/mlDDU (0-234) H 11/26/20 06:04 ABG pH 7.406 (7.320-7.450) 12/22/20 04:08 POC ABG pCO2 67.6 mmHg (32.0-48.0) H 12/22/20 04:08 ABG pCO2 81.3 mm Hg 12/08/20 04:12 POC ABG pO2 57.3 mmHg (83-108) L 12/22/20 04:08 ABG pO2 69.7 mm Hg (80.0-90.0) L 12/08/20 04:12 POC ABG HCO3 41.5 12/22/20 04:08 ABG HCO3 50.1 mmol/L (20.0-26.0) H 12/08/20 04:12 ABG O2 Saturation 95.4 % (95.0-99.0) 12/08/20 04:12 ABG O2 Content 13.0 (0.0-44) 12/07/20 05:20 POC ABG Base Excess 13.3 12/22/20 04:08 ABG Base Excess 21.6 mmol/L (-2.0-3.0) H 12/08/20 04:12 ABG Hemoglobin 10.1 (12.0-17.5) L 12/21/20 03:30 ABG Oxyhemoglobin 84.2 (94-98) L 12/19/20 03:41 ABG Carboxyhemoglobin 2.0 % (0.0-5.0) 12/08/20 04:12 ABG Methemoglobin 0.3 (0.0-1.5) 12/19/20 03:41 ABG Sodium 130.9 mmol/L (136.0-145.0) L 12/22/20 04:08 ABG Potassium 3.7 mmol/L (3.40-4.50) 12/22/20 04:08 ABG Chloride 92.0 mmol/L (98-107) L 12/22/20 04:08 ABG Glucose 163 mg/dL (65-95) H 12/22/20 04:08 Oxyhemoglobin 93.2 % (95.0-99.0) L 12/08/20 04:12 Carboxyhemoglobin 1.6 (0.5-1.5) H 12/19/20 03:41 FiO2 90 12/22/20 04:08 Sodium 132 mmol/L (137-145) L 12/21/20 09:57 Potassium 4.1 mmol/L (3.6-5.0) 12/21/20 09:57 Chloride 87.7 mmol/L (98-107) L 12/21/20 09:57 Carbon Dioxide 42 mmol/L (22-30) H* 12/21/20 09:57 Anion Gap 6 mmol/L 12/21/20 09:57 BUN 12 mg/dL (9-20) 12/21/20 09:57 Creatinine 0.2 mg/dL (0.8-1.3) L 12/21/20 09:57 Estimated GFR > 60 ml/min 12/21/20 09:57 BUN/Creatinine Ratio 60 % 12/21/20 09:57 Glucose 207 mg/dL (75-100) H 12/21/20 09:57 POC Glucose 151 mg/dL (70-105) H 12/22/20 05:19 Hemoglobin A1c 11.7 % (4-6) H 11/16/20 05:29 Lactic Acid 2.60 mmol/L (0.7-2.0) H* 11/16/20 05:29 Calcium 7.7 mg/dL (8.4-10.2) L 12/21/20 09:57 Phosphorus 2.60 mg/dL (2.5-4.5) 12/17/20 17:25 Magnesium 1.60 mg/dL (1.7-2.3) L 12/17/20 17:25 Ferritin 778.8 ng/mL (30.0-300.0) H 11/26/20 04:00 Total Bilirubin 0.40 mg/dL (0.1-1.2) 12/17/20 17:25 AST 29 units/L (5-40) 12/17/20 17:25 ALT 47 units/L (7-56) 12/17/20 17:25 Alkaline Phosphatase 119 units/L (35-129) 12/17/20 17:25 Lactate Dehydrogenase 288 units/L (91-180) H 11/26/20 04:00 Total Creatine Kinase 47 units/L (55-170) L 12/17/20 17:25 CK-MB (CK-2) 1.8 ng/mL (0.0-4.0) 12/17/20 17:25 CK-MB (CK-2) Rel Index 3.8 (0-4) 12/17/20 17:25 Troponin T < 0.010 ng/mL (0.00-0.029) 12/11/20 06:30 C-Reactive Protein 1.40 mg/dL (0.00-1.30) H 11/26/20 04:00 NT-Pro-B Natriuret Pep 107.2 pg/mL (0-900) 11/17/20 10:21 Total Protein 6.2 g/dL (6.3-8.2) L 12/17/20 17:25 Albumin 2.1 g/dL (3.9-5) L 12/17/20 17:25 Albumin/Globulin Ratio 0.5 % 12/17/20 17:25 Triglycerides 150 mg/dL (2-149) H 12/12/20 05:16 Procalcitonin 0.16 ng/mL (<0.15) 12/12/20 05:16 Arterial Blood Glucose 163 mg/dL (65-95) H 12/22/20 04:08 Arterial Blood Ionized Calcium 4.2 mg/dL (4.6-5.3) L 12/22/20 04:08 Urine Color Yellow (Yellow) 12/21/20 Unknown Urine Turbidity Cloudy (Clear) 12/21/20 Unknown Urine pH 6.0 (5.0-7.0) 12/21/20 Unknown Ur Specific [place] 1.013 (1.003-1.030) 12/21/20 Unknown Urine Protein <15 mg/dl mg/dL (Negative) 12/21/20 Unknown Urine Glucose (UA) Neg mg/dL (Negative) 12/21/20 Unknown Urine Ketones Neg mg/dL (Negative) 12/21/20 Unknown Urine Blood Neg (Negative) 12/21/20 Unknown Urine Nitrite Neg (Negative) 12/21/20 Unknown Urine Bilirubin Neg (Negative) 12/21/20 Unknown Urine Urobilinogen < 2.0 mg/dL (<2.0) 12/21/20 Unknown Ur Leukocyte Esterase Mod (Negative) 12/21/20 Unknown Urine WBC (Auto) 172.0 /HPF (0.0-6.0) H 12/21/20 Unknown Urine RBC (Auto) > 182.0 /HPF (0.0-6.0) 12/21/20 Unknown U Epithel Cells (Auto) 3.0 /HPF (0-13.0) 12/21/20 Unknown Urine Bacteria (Auto) 2+ /HPF (Negative) 12/21/20 Unknown Ur Renal Epithelial Cell <1 /LPF 12/21/20 Unknown Urine Mucus 2+ /HPF 12/21/20 Unknown Urine Yeast (Budding) 3+ /HPF 12/21/20 Unknown Vancomycin Trough 16.9 ug/mL (5.0-20.0) 12/19/20 15:46 Coronavirus (PCR) Positive (Negative) A 12/13/20 10:00 Hepatitis A IgM Ab Non-reactive (NonReactive) 12/17/20 21:40 Hep Bs Antigen Non-reactive (Negative) 12/17/20 21:40 Hep B Core IgM Ab Non-reactive (NonReactive) 12/17/20 21:40 Hepatitis C Antibody Non-reactive (NonReactive) 12/17/20 21:40 HIV 1&2 Antibody Rapid Non react (Non React) 12/17/20 21:40 HIV P24 Antigen Non react (Non React) 12/17/20 21:40 Microbiology: Microbiology 12/21/20 16:44 Peripheral/Venous Blood Culture - Preliminary Culture in Progress 12/21/20 16:44 Peripheral/Venous Blood Culture - Preliminary Culture in Progress 12/17/20 Unknown Peripheral/Venous Blood Culture - Preliminary Enterococcus Faecalis - Diagnostic Impressions Diagnostic Impressions: Echocardiogram 11/16/20 10:34 Transthoracic Echocardiogram Indication: Shortness of breath-COVID BP: 108/77 HR: 92 Conclusions *Global left ventricular systolic function is normal. *The estimated ejection fraction is 60-65%. *Mild to moderate concentric left ventricular hypertrophy is observed. *There is trace of mitral regurgitation. *There is mild to moderate tricuspid regurgitation. *There is evidence of mild pulmonary hypertension. *The right ventricular systolic pressure is calculated at 31 mmHg. Findings Left Ventricle: The left ventricular chamber size is normal. Mild to moderate concentric left ventricular hypertrophy is observed. Global left ventricular systolic function is normal. The estimated ejection fraction is 60-65%. Left Atrium: The left atrial chamber size is normal. Right Ventricle: The right ventricular cavity size is normal. The right ventricular global systolic function is normal. Right Atrium: The right atrial cavity size is normal. Aortic Valve: The aortic valve is trileaflet. There is no evidence of aortic regurgitation. There is no evidence of aortic stenosis. Mitral Valve: The mitral valve leaflets appear normal. There is trace of mitral regurgitation. There is no evidence of mitral stenosis. Tricuspid Valve: The tricuspid valve leaflets are normal. There is mild to moderate tricuspid regurgitation. The right ventricular systolic pressure is calculated at 31 mmHg. There is evidence of mild pulmonary hypertension. Pulmonic Valve: There is trace pulmonic regurgitation. Pericardium: There is no pericardial effusion. Aorta: There is no dilatation of the ascending aorta. There is no dilatation of the aortic root. Venous: The inferior vena cava appears normal in size. Measurements Chambers 2D Name Value Normal Range IVSd (2D) 0.81 cm (0.6 - 1.1) LVPWd (2D) 0.79 cm (0.6 - 1.1) LVIDd (2D) 4.22 cm (3.7 - 5.6) LVIDs (2D) 3.1 cm (2 - 3.8) LV FS (2D) 26.71 % - EF Teichholz (2D) 52.55 % - Ao root diameter (2D) 3.34 cm (2 - 3.7) Volumes/Mass Name Value Normal Range LA ESV SP 4CH (A/L) 10.87 ml - LA ESV SP 2CH (A/L) 18.74 ml - LA ESV BP (A/L) 16.38 ml - LA ESV BP (A/L) index 8.62 ml/m2 - LA ESV SP 4CH (MOD) 10.32 ml - LA ESV SP 2CH (MOD) 17.66 ml - LA ESV BP (MOD) 15.12 ml - LA ESV BP (MOD) index 7.96 ml/m2 - Diastolic/Systolic Function Name Value Normal Range MV E-wave Vmax 0.76 m/sec - MV deceleration time 133.63 msec - MV A-wave Vmax 1.1 m/sec - MV E:A ratio 0.69 ratio - Aortic Valve Name Value Normal Range AV Vmax 1.44 m/sec - AV VTI 22.94 cm - AV peak gradient 8.33 mmHg - AV mean gradient 4.73 mmHg - LVOT diameter 2.2 cm - LVOT Vmax 1.04 m/sec - LVOT VTI 18.88 cm - LVOT peak gradient 4.34 mmHg - LVOT mean gradient 2.31 mmHg - SV LVOT 72.05 ml - EVANGELISTA (continuity Vmax) 2.75 cm2 - EVANGELISTA (continuity VTI) 3.14 cm2 - Tricuspid Valve Name Value Normal Range TR Vmax 2.64 m/sec - TR peak gradient 28 mmHg - RAP 3 mmHg - RVSP 31 mmHg - Gupta/IV: Voiding Method Indwelling Catheter IV Catheter Type [Left Peripheral IV Antecubital] Active Medications - Current Medications Current Medications: Generic Name Dose Route Start Last Admin Trade Name Freq PRN Reason Stop Dose Admin Acetaminophen 650 mg 11/15/20 23:55 12/21/20 00:41 Acetaminophen 325 Mg Tab PO 650 mg Q4H PRN Administration Pain MILD(1-3)/Fever >100.5/BUTTS Lipase/Protease/Amylase 1 each 11/23/20 11:53 12/05/20 23:45 Lipase 10,500/Protease 25,000/Amylase 43,750 (Units) Dr Slater FEEDTUBE 1 each PRN PRN Administration For Clogged Feeding Tube Dextrose 25 ml 12/10/20 05:21 12/10/20 05:24 Dextrose 50% In Water (25gm) 50 Ml Syringe IV 25 ml Q30MIN PRN Administration Hypoglycemia Protocol Enoxaparin Sodium 40 mg 12/03/20 22:00 12/21/20 22:05 Enoxaparin 40 Mg/0.4 Ml Inj SUB-Q 40 mg QDAY@2200 RAEANN Administration Famotidine 20 mg 12/16/20 10:00 12/22/20 09:34 Famotidine 20 Mg Tab PO 20 mg BID RAEANN Administration Hydrophilic Ointment 1 applic 11/21/20 21:53 11/30/20 21:33 Lip Therapy Vaseline TP 1 applic Q2HR PRN Administration Dry Lips Midazolam HCl 100 mg/ Sodium 100 mls @ 2 mls/hr 11/21/20 22:00 12/22/20 08:13 Chloride IV 5 mg/hr TITR RAEANN 5 mls/hr Titration Protocol 2 MG/HR Norepinephrine 4 mg in 250 mls @ 7.5 mls/hr 11/22/20 17:00 12/22/20 09:34 Levophed Drip 4 Mg/Ns 250 Ml IV 8 mcg/min TITR RAEANN 30 mls/hr Administration Protocol 2 MCG/MIN Propofol 1,000 mg in 100 mls @ 2.175 mls/hr 11/27/20 12:00 12/22/20 11:46 Diprivan 10 Mg/Ml IV 15 mcg/kg/min TITR RAEANN 6.525 mls/hr Administration Protocol 5 MCG/KG/MIN Dexmedetomidine HCl 400 mcg/ 104 mls @ 4.441 mls/hr 12/10/20 13:00 12/22/20 08:15 Sodium Chloride IV 0.7 mcg/kg/hr TITRATE RAEANN 15.543 mls/hr Administration Protocol 0.2 MCG/KG/HR Fentanyl Citrate 2,000 mcg in 100 mls @ 3.9 mls/hr 12/18/20 19:00 12/22/20 13:14 Fentanyl Drip Premix IV 4 mcg/kg/hr TITR RAEANN 15.6 mls/hr Administration Protocol 1 MCG/KG/HR Ampicillin Sodium 2 gm in 100 mls @ 100 mls/hr 12/22/20 14:00 12/22/20 15:44 Ampicillin/Ns 2 Gm/100 Ml IV 100 mls/hr Q6H RAEANN Administration Protocol Insulin Glargine 8 units 12/17/20 13:52 12/21/20 22:05 Insulin Glargine 100 Units/Ml SUB-Q 8 units QHS RAEANN Administration Insulin Human Lispro 0 unit 11/22/20 06:00 12/22/20 13:14 Insulin Lispro 100 Unit/Ml SUB-Q 3 unit Q6HR RAEANN Administration Protocol Metoclopramide HCl 10 mg 11/15/20 23:55 Metoclopramide 10 Mg/2 Ml Inj IV Q6H PRN Nausea And Vomiting Multi-Ingred Cream/Lotion/Oil/Oint 1 applic 11/21/20 21:53 Mineral Oil/Petrolatum, White Ophth Oint 3.5 Gm OU Q4HR PRN Dry Eye(s) Ondansetron HCl 4 mg 11/15/20 23:55 Ondansetron 4 Mg/2 Ml Inj IV Q8H PRN Nausea And Vomiting Senna/Docusate Sodium 2 tab 12/21/20 14:00 12/22/20 15:44 Sennosides/Docusate Sodium 8.6/50 Mg Tab PO 2 tab Q8HR RAEANN Administration Simple Syrup 15 ml 11/23/20 11:53 Simple Syrup 15 Ml FEEDTUBE PRN PRN Hypoglycemia Simple Syrup 30 ml 11/23/20 11:53 Simple Syrup 15 Ml FEEDTUBE PRN PRN Hypoglycemia Sodium Bicarbonate 325 mg 11/23/20 11:53 12/05/20 23:46 Sodium Bicarbonate 325 Mg Tab FEEDTUBE 325 mg PRN PRN Administration For Clogged Feeding Tube Sodium Chloride 10 ml 11/16/20 10:00 12/22/20 09:35 Sodium Chloride 0.9% 10 Ml Flush Syringe IV 10 ml BID RAEANN Administration Sodium Chloride 10 ml 11/15/20 23:55 12/03/20 00:21 Sodium Chloride 0.9% 10 Ml Flush Syringe IV 10 ml PRN PRN Administration LINE FLUSH Nutrition/Malnutrition Assess - Dietary Evaluation Nutrition/Malnutrition Findings: Nutrition Notes Start: 11/20/20 12:03 Freq: Status: Active Protocol: Document 12/21/20 12:15 (Rec: 12/21/20 12:25 [email or web address]) Nutrition Notes Initial or Follow up Reassessment Current Diagnosis Diabetes,Sepsis,Respiratory Failure Other Pertinent Diagnosis Bilat pneu, COVID-19 (+) Current Diet Glucerna 1.2 at 60 ml/hr Labs/Tests Na 132 BG 207 Pertinent Medications Propofol Levophed Prednisone Senokot S Height 5 ft 6 in Weight 81.3 kg [place] Body Weight (kg) 64.54 BMI 28.9 Weight Status Overweight Subjective/Other Information FU for TF tolerance. Pt tolerating TF at goal. MD to increase Percent of energy/protein needs met: 100%/100% Burn Absent Trauma Absent GI Symptoms Last BM Difficulty In Swallowing,Chewing Current % PO Negligible Minimum of two criteria Yes Energy Intake (severe) < or equal to 50% Estimated Energy Requirement > or equal to 5 days Interpretation of Weight Loss (severe) >2% in 1 week Fluid Accumulation Moderate to Severe (severe) #3 Nutrition Diagnosis Inadequate oral intake Diagnosis Progress(for reassessment Continues documentation) #2 Nutrition Diagnosis Malnutrition Diagnosis Progress(for reassessment Continues documentation) #1 Nutrition Diagnosis Unintended weight loss Diagnosis Progress(for reassessment Continues documentation) Is patient on ventilator? Yes Is Patient Ambulatory and/or Out of Bed No REE-([facility]-confined to bed) 1895.496 Kcal/Kg value to use for calculation 22 Approximate Energy Requirements Using 1789 kcal/Kg Calculation Used for Recommendations [facility] Additional Notes Protein: 87-145 g/day (1.2-2g/ kg) Fluid: 1ml/kcal or per MD Nutrition Intervention Change Diet Order: Continue TF Nutrition Support: Glucerna 1.2 at 65 ml/hr. Flush 125 ml q4h Kcal 1,872 Protein (gm) 93 Fluid (mL) 1,255 Goal #1 Meet at least 75% of energy and protein needs via TF Goal #2 TF tolerance Anticipated Discharge Needs: Unable to determine at this time Follow-Up By: 12/25/20 Additional Comments FU for TF tolerance, BM
[2020-12-22] MEDS: INSULIN GLARGINE 100 UNITS/ML SUB-Q SCH (22:12)
[2020-12-22] MEDS: ENOXAPARIN 40 MG/0.4 ML INJ SUB-Q SCH (22:12)
[2020-12-23] MEDS: AMPICILLIN/NS 2 GM/100 ML 2 GM/100 ML BAG IV SCH ×4 (01:13→20:37)
[2020-12-23] MEDS: MIDAZOLAM 100 MG in SODIUM CHLORIDE 0.9% 80 ML IV SCH ×2 (02:13→17:54)
[2020-12-23] MEDS: fentaNYL DRIP Premix 2,000 MCG/100 ML BAG IV SCH ×4 (02:30→21:39)
[2020-12-23] MEDS: NORepinephrine/NS 4 MG-250 ML 4 MG/250 ML BAG IV SCH ×2 (03:02→17:52)
[2020-12-23] MEDS: ACETAMINOPHEN 325 MG TAB PO PRN (04:01)
[2020-12-23] MEDS: INSULIN LISPRO 100 UNIT/ML SUB-Q SCH ×3 (06:15→18:19)
[2020-12-23] MEDS: SENNOSIDES/DOCUSATE SODIUM 8.6/50 MG TAB PO SCH ×3 (06:27→21:25)
[2020-12-23 06:47] LABS: Blood Urea Nitrogen 11 mg/dL (9-20); Calcium 7.4 mg/dL (8.4-10.2); Hemolysis Index 6
[2020-12-23 06:48] LABS: BUN/Creatinine Ratio 55
[2020-12-23] MEDS: DOCUSATE SODIUM 100 MG/10 ML ORAL LIQD PO SCH ×2 (09:02→21:24)
[2020-12-23] MEDS: POLYETHYLENE GLYCOL 3350 17 GM POWDER PO SCH (09:02)
[2020-12-23] MEDS: FAMOTIDINE 20 MG TAB PO SCH ×2 (09:03→21:25)
--- NOTE | 2020-12-23 10:07 | Progress Note ---
Assessment and Plan 59 y/o male with acute respiratory failure, abnormal CXR and abnormal lab studies. 12/23/20: Continue current level of sedation. Wean parameters as listed below. appreciate ID recs and help. 12/22/20: Continue current level of sedation. Ok to wean FiO2 for sats >88% and PaO2>55mmHg. Follow up ID recs in regards to abx therapy. Prognosis unfortunately still remains guarded. 12/21/20: Back up to 100%. Peep is the same chest tubes intact. Long discussion on rounds, will restart Diprovan to obtain adequate sedation (RASS of -4). Ok to titrate pressors to achieve adequate sedation if blood pressure is compromised by sedatives. Prognosis remains guarded. Awaiting speciation of other cultures. 12/18/20: Still on 75% and 18 of PEEP. Follow up cultures, Blood pending, urine has not resulted yet. Had another temp at 20:00 last night. CXR looks more like pulmonary edema but not in a position to diurese at this time as he occasionally requires vasopressor support given the amount of sedation needed to achieve a RASS of 4. If he continues to spike, would consider hospital acquired coverage of abx therapy. Prognosis remains guarded. 12/17/20: Back down to 75%. Febrile last night, if and when spikes again today, please obtain blood cultures times 2 and urine. Will go ahead and order repeat CXR now. Prognosis still remains guarded. 12/16/20: Back up to 100%. Once stabilized will attempt to wean back down. ABG in the am and may need to consider repeat ABG later this afternoon pending clinical state. Unable to prone given bilateral chest tubes. Prognosis remains guarded to poor. 12/15/20: Tolerating weaning from yesterday. RT to attempt to wean some more today. Kidney function remains unchanged. Guarded prognosis. 12/14/20: Unable to wean FiO2 today. Continue supportive measures. Great that his kidney function has maintained but given the amount of oxygen he continues to require, his chances of recovery continue to decrease. Family aware and will up date them as needed. Very very guarded prognosis. 12/13/20: WIll start Weaning FiO2 again tomorrow morning of PaO2 remains this good. Continue all other supportive measures. Guarded prognosis. Monitor renal function closely. 12/12/20: Long discussion with brother at door. Patient remains full code which is not unreasonable but family is realistic about outcome being poor. Will continue all supportive measures. IF clinical state worsens, will ask family to come back to see patient. Guarded Prognosis. 12/11/20: Will attempt to wean Diprovan off and increase precedex. Triglycerides were ok. IF we have to support with pressors we will but I have asked nursing to please be detailed in their checkouts as to why they did certain things with the continuous drips. Continue supportive measures. Br other is going to try to come and see him from [place] 12/10/20: No acute events overnight. Patient has had waxing and waning of the amount of oxygen he has required over the last 24-72 hours. I have a bad feeling that he is on the brink of cardiac arrest and this could happen at any moment. I am going to reach out to the brother today to explain to him my concerns. Patient is a full code. Very very guarded prognosis. 12/09/20: Repeat ABG later today. Wean FiO2 for sats >88%. Repeat CXR as well. With BP dropping could be relative adrenal insufficiency, will watch for now, however if pressor requirement increases would consider stress dose steroids and maybe volume replacement. Follow up cultures. Guarded prognosis. 12/08/20: Increase TV to 425. Drop FiO2 to 65% and wean for sats >88%. COntinue chest tubes. Change steroids to 20q12. 12/07/20: CXR is stable, no indication for another chest tube at this time. Will repeat ABG in 1 hour post change to 70% and wean accordingly. Dropping steroids to 20q8. Guarded prognosis. Same weaning parameters apply today as of 12/04/20 12/04/20: Continue to wean steroids to off. Continue to wean FiO2 for sats >88%. Keep PEEP at current level, would not feel comfortable weaning PEEP until FiO2 at 35-40%. Continue chest tubes to suction. PaO2 of >55, pH of >7.2 and sats >88% are acceptable. : Dropped steroids down to 40q8 and will start to wean from there. Continue to slowly wean FiO2 first, keep PEEP at current level. Spoke with Kehinde, please see my event note, who is the biological brother. He had no quest ions but thanked us for our care. Prognosis remains very very guarded. PaO2 of 55 and pH of >7.2 and sats of >88% are all acceptable. 12/02/20: Wean FiO2 for sats >88% and PaO2 >55. Unable to prone currently secondary to bilateral chest tubes. COntinue high dose steroids. CM To figure out who is the immediate next of kin that can make decisions and then we will discuss the current clinical situation with them. 12/01/20: Continue PEEP and FiO2 elevated to keep sats >88% and PaO2 >55. Small lung volumes and high PEEP. very very guarded prognosis. 11/30/20: Worsening hypoxemia. Chest tubes stable. Likely just worsening disease. Unable to prone now. Increase PEEP to 18 and FiO2 back up to 100. Continue 3 sedatives for RASS of -2. Obtain 12 lead to look at T waves as K was only 4.6 on yesterday. Guarded, guarded prognosis 11/29/20: Second chest tube in on yesterday. CXR is stable. ABG unchanged. Will likely increase PEEP now that chest tubes are in. No further paralytics. Still making good urine. Prognosis remains guarded. Will check chemistry to assess Potassium levels given peaked t's seen on monitor. 11/28/20: Second chest tube today. Once chest tube in, will likely increase PEEP to 18 and repeat gas about 2 hours after this. Continue paralytic today. No proning now that patient will have bilateral chest tubes. VEry guarded prognosis. 11/27/20: Spoke with surgery who have agreed to evaluate and placed chest tube on either right or left side pending CXR reading. Will monitor for 36-48 hours and if no resolution, will need chest tube placed on opposite side as well. Once placed, will likely paralyze again but hold on proning for now. Guarded prognosis. 11/26/20: Paralytics are off. Continue current level of sedation. Will prone for 12 hours today and repeat ABG in the am. Continue lung protective strategy. Guarded prognosis. 11/25/20: Prone again to 16 hours, will prone at 12-12:30. Continue paralytics for 24 more hours. Discussed the idea of permissive hypercapnea again today and as long as pH is above 7.2 no changes should be made to TV and or RR without discussing with physician. Continue to monitor urine output, guarded prognosis. Hold on lasix therapy today. 11/24/20: Prone again today. Will try 48 hours of paralyzing the patient to see if this will help with oxygenation. Will speak with RT's about permissive hypercapnea and that pH's of 7.2 and greater are ok. Continue high doses s teroids. Prognosis is still very very guarded. If not improvement with paralytics, will attempt transfer. 11/23/20: Prone again today for 12 hours. Continue High Dose steroids. Hold on lasix given marginal BP's. Prognosis is very very guarded to poor. Will continue all supportive measures. If not able to wean from 100%, will attempt transfer for ECMO. 1. Pulm- Agree with concern for covid. Agree with empiric abx but procal is only mildly elevated. Await cultures. Continue bipap therapy for now but will need to monitor closely. [facility] has ordered CTA, but I spoke with pharmacy and we will empirically treat with BID lovenox therapy. COntinue empiric steroid therapy for COVID until studies back. Not sure that he will be able to prone on bipap therapy. Monitor volume status and run as dry as possible. 2. Renal-normal function but all electrolytes abnormal. HYponatremia and Hy pochloremia volume up vs volume down. Sent BNP. Would suggest obtaning echo as well. Not sure what to make of elevated lactate unless that is from increased work of breathing or damage to other tissue unknown. May need to check LFT's and Coags as well. 3. Guarded Prognosis. CCT 31 minutes. Subjective Date of service: 12/23/20 Principal diagnosis: COVID-19 Interval history: No acute events. Down to 85%. Remains sedated and on levophed for BP support Objective Vital Signs - 12hr 12/22/20 12/22/20 12/22/20 22:15 22:30 22:45 Temperature Pulse Rate 102 H 103 H 97 H Respiratory 19 27 H 30 H Rate Blood Pressure 106/60 105/62 99/58 O2 Sat by Pulse 100 100 99 Oximetry 12/22/20 12/22/20 12/22/20 23:00 23:08 23:15 Temperature Pulse Rate 94 H 96 H 94 H Respiratory 30 H 30 H 30 H Rate Blood Pressure 96/57 96/57 93/60 O2 Sat by Pulse 100 100 95 Oximetry 12/22/20 12/22/20 12/23/20 23:30 23:45 00:00 Temperature 99.1 F Pulse Rate 94 H 96 H 96 H Respiratory 30 H 30 H 30 H Rate Blood Pressure 100/58 100/59 101/60 O2 Sat by Pulse 100 100 100 Oximetry 12/23/20 12/23/20 12/23/20 00:15 00:30 00:40 Temperature Pulse Rate 94 H 95 H 97 H Respiratory 30 H 30 H Rate Blood Pressure 104/58 94/53 94/53 O2 Sat by Pulse 91 93 95 Oximetry 12/23/20 12/23/20 12/23/20 00:45 01:00 01:15 Temperature Pulse Rate 97 H 97 H 102 H Respiratory 30 H 30 H 31 H Rate Blood Pressure 99/55 102/55 105/59 O2 Sat by Pulse 95 93 96 Oximetry 12/23/20 12/23/20 12/23/20 01:30 01:45 02:00 Temperature Pulse Rate 101 H 101 H 101 H Respiratory 27 H 30 H 30 H Rate Blood Pressure 103/59 105/56 108/59 O2 Sat by Pulse 95 95 95 Oximetry 12/23/20 12/23/20 12/23/20 02:15 02:30 02:45 Temperature Pulse Rate 108 H 104 H 117 H Respiratory 30 H 30 H 23 Rate Blood Pressure 109/62 115/63 119/62 O2 Sat by Pulse 91 90 92 Oximetry 12/23/20 12/23/20 12/23/20 03:00 03:15 03:30 Temperature Pulse Rate 106 H 108 H 110 H Respiratory 30 H 17 31 H Rate Blood Pressure 111/64 116/66 121/68 O2 Sat by Pulse 91 91 92 Oximetry 12/23/20 12/23/20 12/23/20 03:40 03:45 04:00 Temperature 99.9 F H Pulse Rate 95 H 114 H 116 H Respiratory 30 H 30 H Rate Blood Pressure 124/64 124/66 O2 Sat by Pulse 93 93 Oximetry 12/23/20 12/23/20 12/23/20 04:15 04:30 04:45 Temperature Pulse Rate 119 H 117 H 120 H Respiratory 30 H 29 H 27 H Rate Blood Pressure 120/63 115/61 103/64 O2 Sat by Pulse 93 93 87 Oximetry 12/23/20 12/23/20 12/23/20 05:00 05:15 05:21 Temperature Pulse Rate 112 H 107 H 106 H Respiratory 30 H 24 Rate Blood Pressure 101/52 92/47 92/47 O2 Sat by Pulse 93 93 93 Oximetry 12/23/20 12/23/20 12/23/20 05:30 05:45 06:00 Temperature Pulse Rate 100 H 97 H 88 Respiratory 30 H 30 H 30 H Rate Blood Pressure 86/44 89/49 92/50 O2 Sat by Pulse 94 94 94 Oximetry 12/23/20 12/23/20 08:00 08:17 Temperature 98.4 F Pulse Rate 84 Respiratory Rate Blood Pressure 98/56 O2 Sat by Pulse 93 Oximetry Constitutional: other (on vent orally intubated) ENT: other (Now intubated) Ascultation: Bilateral: rales, rhonchi, other (coarse BS bilaterally) Percussion: Bilateral: not dull Cardiovascular: regular rate and rhythm (no mrg) Gastrointestinal: normoactive bowel sounds, soft, non-tender, non-distended Integumentary: normal Extremities: no cyanosis, no edema, pink and warm Neurologic: other (sedated) Psychiatric: other (sedated) CBC and BMP: 12/20/20 04:00 12/23/20 06:07 ABG, PT/INR, D-dimer: ABG ABG pH 7.446 (7.320-7.450) 12/23/20 05:19 POC ABG pCO2 67.7 mmHg (32.0-48.0) H 12/23/20 05:19 ABG pCO2 81.3 mm Hg 12/08/20 04:12 POC ABG pO2 53.7 mmHg (83-108) L 12/23/20 05:19 ABG pO2 69.7 mm Hg (80.0-90.0) L 12/08/20 04:12 POC ABG HCO3 45.6 12/23/20 05:19 ABG O2 Saturation 89.6 (0-100) 12/23/20 05:19 PT/INR, D-dimer D-Dimer 926.11 ng/mlDDU (0-234) H 11/26/20 06:04 Abnormal lab findings: Abnormal Labs 11/15/20 11/15/2011/15/21 10:39 10:39 10:39 WBC 14.3 H RBC 5.17 H Hgb Hct RDW Plt Count Lymph % (Auto) 7.8 L [place] % (Auto) 7.6 H Lymph # (Auto) 1.1 L [place] # (Auto) 1.1 H Baso # (Auto) Seg Neutrophils % 83.3 H Seg Neuts % (Manual) Lymphocytes % (Manual) Seg Neutrophils # 11.9 H Seg Neutrophils # Man Lymphocytes # (Manual) D-Dimer ABG pH POC ABG pCO2 POC ABG pO2 ABG pO2 ABG HCO3 ABG O2 Saturation ABG Base Excess ABG Hemoglobin ABG Oxyhemoglobin ABG Sodium ABG Potassium ABG Chloride ABG Glucose Oxyhemoglobin Carboxyhemoglobin Sodium 128 L Potassium Chloride 96.0 L Carbon Dioxide BUN Creatinine 0.7 L Glucose 238 H POC Glucose Hemoglobin A1c Lactic Acid 4.10 H* Calcium 7.0 L Magnesium Ferritin Total Bilirubin 1.40 H AST 49 H ALT 70 H Alkaline Phosphatase Lactate Dehydrogenase 663 H Total Creatine Kinase C-Reactive Protein 19.80 H Total Protein Albumin 2.9 L Triglycerides Arterial Blood Glucose Arterial Blood Ionized Calcium Ur Specific [place] Urine WBC (Auto) Vancomycin Trough Coronavirus (PCR) 11/15/20 11/15/20 11/15/20 10:39 10:39 11:20 WBC RBC Hgb Hct RDW Plt Count Lymph % (Auto) [place] % (Auto) Lymph # (Auto) [place] # (Auto) Baso # (Auto) Seg Neutrophils % Seg Neuts % (Manual) Lymphocytes % (Manual) Seg Neutrophils # Seg Neutrophils # Man Lymphocytes # (Manual) D-Dimer > 68908 H ABG pH POC ABG pCO2 29.9 L POC ABG pO2 137.3 H ABG pO2 ABG HCO3 ABG O2 Saturation ABG Base Excess ABG Hemoglobin ABG Oxyhemoglobin ABG Sodium 126.5 L ABG Potassium ABG Chloride ABG Glucose 248 H Oxyhemoglobin Carboxyhemoglobin Sodium Potassium Chloride Carbon Dioxide BUN Creatinine Glucose POC Glucose Hemoglobin A1c Lactic Acid Calcium Magnesium Ferritin 672.8 H Total Bilirubin AST ALT Alkaline Phosphatase Lactate Dehydrogenase Total Creatine Kinase C-Reactive Protein Total Protein Albumin Triglycerides Arterial Blood Glucose 248 H Arterial Blood Ionized Calcium 4.1 L Ur Specific [place] Urine WBC (Auto) Vancomycin Trough Coronavirus (PCR) 11/15/20 11/15/20 11/16/20 13:41 23:41 01:45 WBC RBC Hgb Hct RDW Plt Count Lymph % (Auto) [place] % (Auto) Lymph # (Auto) [place] # (Auto) Baso # (Auto) Seg Neutrophils % Seg Neuts % (Manual) Lymphocytes % (Manual) Seg Neutrophils # Seg Neutrophils # Man Lymphocytes # (Manual) D-Dimer ABG pH POC ABG pCO2 POC ABG pO2 ABG pO2 ABG HCO3 ABG O2 Saturation ABG Base Excess ABG Hemoglobin ABG Oxyhemoglobin ABG Sodium ABG Potassium ABG Chloride ABG Glucose Oxyhemoglobin Carboxyhemoglobin Sodium Potassium Chloride Carbon Dioxide BUN Creatinine Glucose POC Glucose 284 H Hemoglobin A1c Lactic Acid 2.30 H* Calcium Magnesium Ferritin Total Bilirubin AST ALT Alkaline Phosphatase Lactate Dehydrogenase Total Creatine Kinase C-Reactive Protein Total Protein Albumin Triglycerides Arterial Blood Glucose Arterial Blood Ionized Calcium Ur Specific [place] 1.037 H Urine WBC (Auto) Vancomycin Trough Coronavirus (PCR) 11/16/20 11/16/20 11/16/20 05:29 05:29 05:29 WBC 12.9 H RBC Hgb Hct RDW Plt Count Lymph % (Auto) 4.5 L [place] % (Auto) Lymph # (Auto) 0.6 L [place] # (Auto) Baso # (Auto) 0.2 H Seg Neutrophils % 89.8 H Seg Neuts % (Manual) Lymphocytes % (Manual) Seg Neutrophils # 11.5 H Seg Neutrophils # Man Lymphocytes # (Manual) D-Dimer ABG pH POC ABG pCO2 POC ABG pO2 ABG pO2 ABG HCO3 ABG O2 Saturation ABG Base Excess ABG Hemoglobin ABG Oxyhemoglobin ABG Sodium ABG Potassium ABG Chloride ABG Glucose Oxyhemoglobin Carboxyhemoglobin Sodium 131 L Potassium Chloride Carbon Dioxide 21 L BUN 23 H Creatinine 0.6 L Glucose 342 H POC Glucose Hemoglobin A1c Lactic Acid 2.60 H* Calcium 7.0 L Magnesium Ferritin Total Bilirubin AST ALT Alkaline Phosphatase Lactate Dehydrogenase Total Creatine Kinase C-Reactive Protein Total Protein Albumin 2.4 L Triglycerides Arterial Blood Glucose Arterial Blood Ionized Calcium Ur Specific [place] Urine WBC (Auto) Vancomycin Trough Coronavirus (PCR) 11/16/20 11/16/20 11/16/20 05:29 08:11 12:11 WBC RBC Hgb Hct RDW Plt Count Lymph % (Auto) [place] % (Auto) Lymph # (Auto) [place] # (Auto) Baso # (Auto) Seg Neutrophils % Seg Neuts % (Manual) Lymphocytes % (Manual) Seg Neutrophils # Seg Neutrophils # Man Lymphocytes # (Manual) D-Dimer ABG pH POC ABG pCO2 POC ABG pO2 ABG pO2 ABG HCO3 ABG O2 Saturation ABG Base Excess ABG Hemoglobin ABG Oxyhemoglobin ABG Sodium ABG Potassium ABG Chloride ABG Glucose Oxyhemoglobin Carboxyhemoglobin Sodium Potassium Chloride Carbon Dioxide BUN Creatinine Glucose POC Glucose 329 H 320 H Hemoglobin A1c 11.7 H Lactic Acid Calcium Magnesium Ferritin Total Bilirubin AST ALT Alkaline Phosphatase Lactate Dehydrogenase Total Creatine Kinase C-Reactive Protein Total Protein Albumin Triglycerides Arterial Blood Glucose Arterial Blood Ionized Calcium Ur Specific [place] Urine WBC (Auto) Vancomycin Trough Coronavirus (PCR) 11/16/20 11/16/20 11/16/20 16:13 21:29 Unknown WBC RBC Hgb Hct RDW Plt Count Lymph % (Auto) [place] % (Auto) Lymph # (Auto) [place] # (Auto) Baso # (Auto) Seg Neutrophils % Seg Neuts % (Manual) Lymphocytes % (Manual) Seg Neutrophils # Seg Neutrophils # Man Lymphocytes # (Manual) D-Dimer ABG pH POC ABG pCO2 POC ABG pO2 ABG pO2 ABG HCO3 ABG O2 Saturation ABG Base Excess ABG Hemoglobin ABG Oxyhemoglobin ABG Sodium ABG Potassium ABG Chloride ABG Glucose Oxyhemoglobin Carboxyhemoglobin Sodium Potassium Chloride Carbon Dioxide BUN Creatinine Glucose POC Glucose 257 H 376 H Hemoglobin A1c Lactic Acid Calcium Magnesium Ferritin Total Bilirubin AST ALT Alkaline Phosphatase Lactate Dehydrogenase Total Creatine Kinase C-Reactive Protein Total Protein Albumin Triglycerides Arterial Blood Glucose Arterial Blood Ionized Calcium Ur Specific [place] Urine WBC (Auto) Vancomycin Trough Coronavirus (PCR) Positive A 11/17/20 11/17/20 11/17/20 07:42 12:07 17:25 WBC RBC Hgb Hct RDW Plt Count Lymph % (Auto) [place] % (Auto) Lymph # (Auto) [place] # (Auto) Baso # (Auto) Seg Neutrophils % Seg Neuts % (Manual) Lymphocytes % (Manual) Seg Neutrophils # Seg Neutrophils # Man Lymphocytes # (Manual) D-Dimer ABG pH POC ABG pCO2 POC ABG pO2 ABG pO2 ABG HCO3 ABG O2 Saturation ABG Base Excess ABG Hemoglobin ABG Oxyhemoglobin ABG Sodium ABG Potassium ABG Chloride ABG Glucose Oxyhemoglobin Carboxyhemoglobin Sodium Potassium Chloride Carbon Dioxide BUN Creatinine Glucose POC Glucose 231 H 380 H 302 H Hemoglobin A1c Lactic Acid Calcium Magnesium Ferritin Total Bilirubin AST ALT Alkaline Phosphatase Lactate Dehydrogenase Total Creatine Kinase C-Reactive Protein Total Protein Albumin Triglycerides Arterial Blood Glucose Arterial Blood Ionized Calcium Ur Specific [place] Urine WBC (Auto) Vancomycin Trough Coronavirus (PCR) 11/17/20 11/18/20 11/18/20 21:53 04:25 07:45 WBC RBC Hgb Hct RDW Plt Count Lymph % (Auto) [place] % (Auto) Lymph # (Auto) [place] # (Auto) Baso # (Auto) Seg Neutrophils % Seg Neuts % (Manual) Lymphocytes % (Manual) Seg Neutrophils # Seg Neutrophils # Man Lymphocytes # (Manual) D-Dimer ABG pH POC ABG pCO2 POC ABG pO2 ABG pO2 ABG HCO3 ABG O2 Saturation ABG Base Excess ABG Hemoglobin ABG Oxyhemoglobin ABG Sodium ABG Potassium ABG Chloride ABG Glucose Oxyhemoglobin Carboxyhemoglobin Sodium 136 L Potassium Chloride Carbon Dioxide BUN 24 H Creatinine 0.6 L Glucose 212 H POC Glucose 293 H 216 H Hemoglobin A1c Lactic Acid Calcium 7.4 L Magnesium Ferritin Total Bilirubin AST 41 H ALT Alkaline Phosphatase 142 H Lactate Dehydrogenase Total Creatine Kinase C-Reactive Protein Total Protein Albumin 2.3 L Triglycerides Arterial Blood Glucose Arterial Blood Ionized Calcium Ur Specific [place] Urine WBC (Auto) Vancomycin Trough Coronavirus (PCR) 11/18/20 11/18/20 11/18/20 12:28 15:58 21:37 WBC RBC Hgb Hct RDW Plt Count Lymph % (Auto) [place] % (Auto) Lymph # (Auto) [place] # (Auto) Baso # (Auto) Seg Neutrophils % Seg Neuts % (Manual) Lymphocytes % (Manual) Seg Neutrophils # Seg Neutrophils # Man Lymphocytes # (Manual) D-Dimer ABG pH POC ABG pCO2 POC ABG pO2 ABG pO2 ABG HCO3 ABG O2 Saturation ABG Base Excess ABG Hemoglobin ABG Oxyhemoglobin ABG Sodium ABG Potassium ABG Chloride ABG Glucose Oxyhemoglobin Carboxyhemoglobin Sodium Potassium Chloride Carbon Dioxide BUN Creatinine Glucose POC Glucose 165 H 220 H 311 H Hemoglobin A1c Lactic Acid Calcium Magnesium Ferritin Total Bilirubin AST ALT Alkaline Phosphatase Lactate Dehydrogenase Total Creatine Kinase C-Reactive Protein Total Protein Albumin Triglycerides Arterial Blood Glucose Arterial Blood Ionized Calcium Ur Specific [place] Urine WBC (Auto) Vancomycin Trough Coronavirus (PCR) 11/19/20 11/19/20 11/19/20 05:35 07:40 12:39 WBC RBC Hgb Hct RDW Plt Count Lymph % (Auto) [place] % (Auto) Lymph # (Auto) [place] # (Auto) Baso # (Auto) Seg Neutrophils % Seg Neuts % (Manual) Lymphocytes % (Manual) Seg Neutrophils # Seg Neutrophils # Man Lymphocytes # (Manual) D-Dimer ABG pH POC ABG pCO2 POC ABG pO2 ABG pO2 ABG HCO3 ABG O2 Saturation ABG Base Excess ABG Hemoglobin ABG Oxyhemoglobin ABG Sodium ABG Potassium ABG Chloride ABG Glucose Oxyhemoglobin Carboxyhemoglobin Sodium 132 L Potassium Chloride Carbon Dioxide BUN 25 H Creatinine 0.5 L Glucose 179 H POC Glucose 149 H 306 H Hemoglobin A1c Lactic Acid Calcium 7.5 L Magnesium Ferritin Total Bilirubin AST ALT Alkaline Phosphatase 139 H Lactate Dehydrogenase Total Creatine Kinase C-Reactive Protein Total Protein Albumin 2.4 L Triglycerides Arterial Blood Glucose Arterial Blood Ionized Calcium Ur Specific [place] Urine WBC (Auto) Vancomycin Trough Coronavirus (PCR) 11/19/20 11/19/20 11/20/20 16:17 21:25 08:30 WBC RBC Hgb Hct RDW Plt Count Lymph % (Auto) [place] % (Auto) Lymph # (Auto) [place] # (Auto) Baso # (Auto) Seg Neutrophils % Seg Neuts % (Manual) Lymphocytes % (Manual) Seg Neutrophils # Seg Neutrophils # Man Lymphocytes # (Manual) D-Dimer ABG pH POC ABG pCO2 POC ABG pO2 ABG pO2 ABG HCO3 ABG O2 Saturation ABG Base Excess ABG Hemoglobin ABG Oxyhemoglobin ABG Sodium ABG Potassium ABG Chloride ABG Glucose Oxyhemoglobin Carboxyhemoglobin Sodium Potassium Chloride Carbon Dioxide BUN Creatinine Glucose POC Glucose 364 H 347 H 141 H Hemoglobin A1c Lactic Acid Calcium Magnesium Ferritin Total Bilirubin AST ALT Alkaline Phosphatase Lactate Dehydrogenase Total Creatine Kinase C-Reactive Protein Total Protein Albumin Triglycerides Arterial Blood Glucose Arterial Blood Ionized Calcium Ur Specific [place] Urine WBC (Auto) Vancomycin Trough Coronavirus (PCR) 11/20/20 11/20/20 11/20/20 08:50 11:32 16:19 WBC RBC Hgb Hct RDW Plt Count Lymph % (Auto) [place] % (Auto) Lymph # (Auto) [place] # (Auto) Baso # (Auto) Seg Neutrophils % Seg Neuts % (Manual) Lymphocytes % (Manual) Seg Neutrophils # Seg Neutrophils # Man Lymphocytes # (Manual) D-Dimer ABG pH POC ABG pCO2 POC ABG pO2 ABG pO2 ABG HCO3 ABG O2 Saturation ABG Base Excess ABG Hemoglobin ABG Oxyhemoglobin ABG Sodium ABG Potassium ABG Chloride ABG Glucose Oxyhemoglobin Carboxyhemoglobin Sodium 132 L Potassium Chloride 97.6 L Carbon Dioxide BUN 26 H Creatinine 0.5 L Glucose 201 H POC Glucose 296 H 327 H Hemoglobin A1c Lactic Acid Calcium 7.9 L Magnesium Ferritin Total Bilirubin AST ALT Alkaline Phosphatase 137 H Lactate Dehydrogenase Total Creatine Kinase C-Reactive Protein Total Protein Albumin 2.6 L Triglycerides Arterial Blood Glucose Arterial Blood Ionized Calcium Ur Specific [place] Urine WBC (Auto) Vancomycin Trough Coronavirus (PCR) 11/20/20 11/21/20 11/21/20 22:09 07:59 13:51 WBC RBC Hgb Hct RDW Plt Count Lymph % (Auto) [place] % (Auto) Lymph # (Auto) [place] # (Auto) Baso # (Auto) Seg Neutrophils % Seg Neuts % (Manual) Lymphocytes % (Manual) Seg Neutrophils # Seg Neutrophils # Man Lymphocytes # (Manual) D-Dimer ABG pH POC ABG pCO2 POC ABG pO2 ABG pO2 ABG HCO3 ABG O2 Saturation ABG Base Excess ABG Hemoglobin ABG Oxyhemoglobin ABG Sodium ABG Potassium ABG Chloride ABG Glucose Oxyhemoglobin Carboxyhemoglobin Sodium Potassium Chloride Carbon Dioxide BUN Creatinine Glucose POC Glucose 311 H 218 H 304 H Hemoglobin A1c Lactic Acid Calcium Magnesium Ferritin Total Bilirubin AST ALT Alkaline Phosphatase Lactate Dehydrogenase Total Creatine Kinase C-Reactive Protein Total Protein Albumin Triglycerides Arterial Blood Glucose Arterial Blood Ionized Calcium Ur Specific [place] Urine WBC (Auto) Vancomycin Trough Coronavirus (PCR) 11/21/20 11/21/20 11/21/20 16:09 21:34 23:00 WBC RBC Hgb Hct RDW Plt Count Lymph % (Auto) [place] % (Auto) Lymph # (Auto) [place] # (Auto) Baso # (Auto) Seg Neutrophils % Seg Neuts % (Manual) Lymphocytes % (Manual) Seg Neutrophils # Seg Neutrophils # Man Lymphocytes # (Manual) D-Dimer ABG pH 7.206 L POC ABG pCO2 59.3 H POC ABG pO2 76.7 L ABG pO2 ABG HCO3 ABG O2 Saturation ABG Base Excess ABG Hemoglobin ABG Oxyhemoglobin ABG Sodium 133.1 L ABG Potassium ABG Chloride ABG Glucose 320 H Oxyhemoglobin Carboxyhemoglobin Sodium Potassium Chloride Carbon Dioxide BUN Creatinine Glucose POC Glucose 239 H 279 H Hemoglobin A1c Lactic Acid Calcium Magnesium Ferritin Total Bilirubin AST ALT Alkaline Phosphatase Lactate Dehydrogenase Total Creatine Kinase C-Reactive Protein Total Protein Albumin Triglycerides Arterial Blood Glucose 320 H Arterial Blood Ionized Calcium Ur Specific [place] Urine WBC (Auto) Vancomycin Trough Coronavirus (PCR) 11/22/20 11/22/20 11/22/20 04:52 04:52 04:52 WBC RBC Hgb Hct RDW Plt Count Lymph % (Auto) [place] % (Auto) Lymph # (Auto) [place] # (Auto) Baso # (Auto) Seg Neutrophils % Seg Neuts % (Manual) Lymphocytes % (Manual) Seg Neutrophils # Seg Neutrophils # Man Lymphocytes # (Manual) D-Dimer 1858.36 H ABG pH POC ABG pCO2 POC ABG pO2 ABG pO2 ABG HCO3 ABG O2 Saturation ABG Base Excess ABG Hemoglobin ABG Oxyhemoglobin ABG Sodium ABG Potassium ABG Chloride ABG Glucose Oxyhemoglobin Carboxyhemoglobin Sodium Potassium Chloride Carbon Dioxide BUN Creatinine Glucose POC Glucose Hemoglobin A1c Lactic Acid Calcium Magnesium Ferritin 734.2 H Total Bilirubin AST ALT Alkaline Phosphatase Lactate Dehydrogenase 404 H Total Creatine Kinase C-Reactive Protein 2.80 H Total Protein Albumin Triglycerides Arterial Blood Glucose Arterial Blood Ionized Calcium Ur Specific [place] Urine WBC (Auto) Vancomycin Trough Coronavirus (PCR) 11/22/20 11/22/20 11/22/20 05:12 05:39 11:50 WBC RBC Hgb Hct RDW Plt Count Lymph % (Auto) [place] % (Auto) Lymph # (Auto) [place] # (Auto) Baso # (Auto) Seg Neutrophils % Seg Neuts % (Manual) Lymphocytes % (Manual) Seg Neutrophils # Seg Neutrophils # Man Lymphocytes # (Manual) D-Dimer ABG pH POC ABG pCO2 POC ABG pO2 51.0 L ABG pO2 ABG HCO3 ABG O2 Saturation ABG Base Excess ABG Hemoglobin ABG Oxyhemoglobin ABG Sodium 131.2 L ABG Potassium 4.6 H ABG Chloride ABG Glucose 317 H Oxyhemoglobin Carboxyhemoglobin Sodium Potassium Chloride Carbon Dioxide BUN Creatinine Glucose POC Glucose 340 H 417 H Hemoglobin A1c Lactic Acid Calcium Magnesium Ferritin Total Bilirubin AST ALT Alkaline Phosphatase Lactate Dehydrogenase Total Creatine Kinase C-Reactive Protein Total Protein Albumin Triglycerides Arterial Blood Glucose 317 H Arterial Blood Ionized Calcium 4.4 L Ur Specific [place] Urine WBC (Auto) Vancomycin Trough Coronavirus (PCR) 11/22/20 11/22/20 11/22/20 12:22 12:22 17:10 WBC 14.4 H RBC Hgb Hct RDW Plt Count Lymph % (Auto) [place] % (Auto) Lymph # (Auto) [place] # (Auto) Baso # (Auto) Seg Neutrophils % Seg Neuts % (Manual) 98.0 H Lymphocytes % (Manual) Seg Neutrophils # Seg Neutrophils # Man 14.1 H Lymphocytes # (Manual) 0.0 L D-Dimer ABG pH POC ABG pCO2 POC ABG pO2 ABG pO2 ABG HCO3 ABG O2 Saturation ABG Base Excess ABG Hemoglobin ABG Oxyhemoglobin ABG Sodium ABG Potassium ABG Chloride ABG Glucose Oxyhemoglobin Carboxyhemoglobin Sodium 132 L Potassium Chloride Carbon Dioxide BUN 36 H Creatinine 0.6 L Glucose 219 H POC Glucose 157 H Hemoglobin A1c Lactic Acid Calcium 7.2 L Magnesium Ferritin Total Bilirubin AST ALT Alkaline Phosphatase Lactate Dehydrogenase Total Creatine Kinase C-Reactive Protein Total Protein Albumin Triglycerides Arterial Blood Glucose Arterial Blood Ionized Calcium Ur Specific [place] Urine WBC (Auto) Vancomycin Trough Coronavirus (PCR) 11/22/20 11/22/20 11/22/20 18:33 21:44 23:47 WBC RBC Hgb Hct RDW Plt Count Lymph % (Auto) [place] % (Auto) Lymph # (Auto) [place] # (Auto) Baso # (Auto) Seg Neutrophils % Seg Neuts % (Manual) Lymphocytes % (Manual) Seg Neutrophils # Seg Neutrophils # Man Lymphocytes # (Manual) D-Dimer ABG pH POC ABG pCO2 POC ABG pO2 60.8 L ABG pO2 ABG HCO3 ABG O2 Saturation ABG Base Excess ABG Hemoglobin ABG Oxyhemoglobin 88.1 L ABG Sodium 135.1 L ABG Potassium ABG Chloride ABG Glucose 141 H Oxyhemoglobin Carboxyhemoglobin Sodium Potassium Chloride Carbon Dioxide BUN Creatinine Glucose POC Glucose 117 H 123 H Hemoglobin A1c Lactic Acid Calcium Magnesium Ferritin Total Bilirubin AST ALT Alkaline Phosphatase Lactate Dehydrogenase Total Creatine Kinase C-Reactive Protein Total Protein Albumin Triglycerides Arterial Blood Glucose 141 H Arterial Blood Ionized Calcium Ur Specific [place] Urine WBC (Auto) Vancomycin Trough Coronavirus (PCR) 11/23/20 11/23/20 11/23/20 04:00 04:00 05:23 WBC 14.4 H RBC Hgb Hct RDW Plt Count Lymph % (Auto) [place] % (Auto) Lymph # (Auto) [place] # (Auto) Baso # (Auto) Seg Neutrophils % Seg Neuts % (Manual) Lymphocytes % (Manual) Seg Neutrophils # Seg Neutrophils # Man Lymphocytes # (Manual) D-Dimer ABG pH POC ABG pCO2 POC ABG pO2 ABG pO2 ABG HCO3 ABG O2 Saturation ABG Base Excess ABG Hemoglobin ABG Oxyhemoglobin ABG Sodium ABG Potassium ABG Chloride ABG Glucose Oxyhemoglobin Carboxyhemoglobin Sodium 136 L Potassium Chloride Carbon Dioxide BUN 33 H Creatinine 0.6 L Glucose 115 H POC Glucose 173 H Hemoglobin A1c Lactic Acid Calcium 7.1 L Magnesium Ferritin Total Bilirubin AST 64 H ALT 75 H Alkaline Phosphatase Lactate Dehydrogenase Total Creatine Kinase C-Reactive Protein Total Protein 5.9 L D Albumin 2.4 L Triglycerides Arterial Blood Glucose Arterial Blood Ionized Calcium Ur Specific [place] Urine WBC (Auto) Vancomycin Trough Coronavirus (PCR) 11/23/20 11/23/20 11/23/20 05:40 11:27 17:10 WBC RBC Hgb Hct RDW Plt Count Lymph % (Auto) [place] % (Auto) Lymph # (Auto) [place] # (Auto) Baso # (Auto) Seg Neutrophils % Seg Neuts % (Manual) Lymphocytes % (Manual) Seg Neutrophils # Seg Neutrophils # Man Lymphocytes # (Manual) D-Dimer ABG pH POC ABG pCO2 POC ABG pO2 56.5 L ABG pO2 ABG HCO3 ABG O2 Saturation ABG Base Excess ABG Hemoglobin ABG Oxyhemoglobin ABG Sodium ABG Potassium ABG Chloride 109.0 H ABG Glucose 114 H Oxyhemoglobin Carboxyhemoglobin Sodium Potassium Chloride Carbon Dioxide BUN Creatinine Glucose POC Glucose 114 H 136 H Hemoglobin A1c Lactic Acid Calcium Magnesium Ferritin Total Bilirubin AST ALT Alkaline Phosphatase Lactate Dehydrogenase Total Creatine Kinase C-Reactive Protein Total Protein Albumin Triglycerides Arterial Blood Glucose 114 H Arterial Blood Ionized Calcium 4.5 L Ur Specific [place] Urine WBC (Auto) Vancomycin Trough Coronavirus (PCR) 11/24/20 11/24/20 11/24/20 05:14 05:14 05:14 WBC RBC Hgb Hct RDW Plt Count Lymph % (Auto) [place] % (Auto) Lymph # (Auto) [place] # (Auto) Baso # (Auto) Seg Neutrophils % Seg Neuts % (Manual) Lymphocytes % (Manual) Seg Neutrophils # Seg Neutrophils # Man Lymphocytes # (Manual) D-Dimer 1433.39 H ABG pH POC ABG pCO2 POC ABG pO2 ABG pO2 ABG HCO3 ABG O2 Saturation ABG Base Excess ABG Hemoglobin ABG Oxyhemoglobin ABG Sodium ABG Potassium ABG Chloride ABG Glucose Oxyhemoglobin Carboxyhemoglobin Sodium Potassium Chloride Carbon Dioxide BUN Creatinine Glucose POC Glucose Hemoglobin A1c Lactic Acid Calcium Magnesium Ferritin 997.5 H Total Bilirubin AST ALT Alkaline Phosphatase Lactate Dehydrogenase 463 H Total Creatine Kinase C-Reactive Protein Total Protein Albumin Triglycerides Arterial Blood Glucose Arterial Blood Ionized Calcium Ur Specific [place] Urine WBC (Auto) Vancomycin Trough Coronavirus (PCR) 11/24/20 11/24/20 11/24/20 05:31 05:36 12:05 WBC RBC Hgb Hct RDW Plt Count Lymph % (Auto) [place] % (Auto) Lymph # (Auto) [place] # (Auto) Baso # (Auto) Seg Neutrophils % Seg Neuts % (Manual) Lymphocytes % (Manual) Seg Neutrophils # Seg Neutrophils # Man Lymphocytes # (Manual) D-Dimer ABG pH POC ABG pCO2 POC ABG pO2 57.2 L ABG pO2 ABG HCO3 ABG O2 Saturation ABG Base Excess ABG Hemoglobin ABG Oxyhemoglobin ABG Sodium ABG Potassium ABG Chloride ABG Glucose 180 H Oxyhemoglobin Carboxyhemoglobin Sodium Potassium Chloride Carbon Dioxide BUN Creatinine Glucose POC Glucose 199 H 143 H Hemoglobin A1c Lactic Acid Calcium Magnesium Ferritin Total Bilirubin AST ALT Alkaline Phosphatase Lactate Dehydrogenase Total Creatine Kinase C-Reactive Protein Total Protein Albumin Triglycerides Arterial Blood Glucose 180 H Arterial Blood Ionized Calcium 4.5 L Ur Specific [place] Urine WBC (Auto) Vancomycin Trough Coronavirus (PCR) 11/24/20 11/24/20 11/24/20 12:14 17:47 23:47 WBC RBC Hgb Hct RDW Plt Count Lymph % (Auto) [place] % (Auto) Lymph # (Auto) [place] # (Auto) Baso # (Auto) Seg Neutrophils % Seg Neuts % (Manual) Lymphocytes % (Manual) Seg Neutrophils # Seg Neutrophils # Man Lymphocytes # (Manual) D-Dimer ABG pH 7.261 L POC ABG pCO2 59.7 H POC ABG pO2 75.7 L ABG pO2 ABG HCO3 ABG O2 Saturation ABG Base Excess ABG Hemoglobin ABG Oxyhemoglobin 92.5 L ABG Sodium ABG Potassium ABG Chloride 108.0 H ABG Glucose 150 H Oxyhemoglobin Carboxyhemoglobin Sodium Potassium Chloride Carbon Dioxide BUN Creatinine Glucose POC Glucose 223 H 179 H Hemoglobin A1c Lactic Acid Calcium Magnesium Ferritin Total Bilirubin AST ALT Alkaline Phosphatase Lactate Dehydrogenase Total Creatine Kinase C-Reactive Protein Total Protein Albumin Triglycerides Arterial Blood Glucose 150 H Arterial Blood Ionized Calcium Ur Specific [place] Urine WBC (Auto) Vancomycin Trough Coronavirus (PCR) 11/25/20 11/25/20 11/25/20 03:29 05:07 05:15 WBC 13.9 H RBC Hgb Hct RDW Plt Count Lymph % (Auto) [place] % (Auto) Lymph # (Auto) [place] # (Auto) Baso # (Auto) Seg Neutrophils % Seg Neuts % (Manual) 97.0 H Lymphocytes % (Manual) Seg Neutrophils # Seg Neutrophils # Man 13.5 H Lymphocytes # (Manual) 0.0 L D-Dimer ABG pH 7.272 L POC ABG pCO2 69.0 H POC ABG pO2 132.9 H ABG pO2 ABG HCO3 ABG O2 Saturation ABG Base Excess ABG Hemoglobin ABG Oxyhemoglobin ABG Sodium ABG Potassium ABG Chloride ABG Glucose 174 H Oxyhemoglobin Carboxyhemoglobin Sodium Potassium Chloride Carbon Dioxide BUN Creatinine Glucose POC Glucose 168 H Hemoglobin A1c Lactic Acid Calcium Magnesium Ferritin Total Bilirubin AST ALT Alkaline Phosphatase Lactate Dehydrogenase Total Creatine Kinase C-Reactive Protein Total Protein Albumin Triglycerides Arterial Blood Glucose 174 H Arterial Blood Ionized Calcium Ur Specific [place] Urine WBC (Auto) Vancomycin Trough Coronavirus (PCR) 11/25/20 11/25/20 11/25/20 05:15 11:25 17:35 WBC RBC Hgb Hct RDW Plt Count Lymph % (Auto) [place] % (Auto) Lymph # (Auto) [place] # (Auto) Baso # (Auto) Seg Neutrophils % Seg Neuts % (Manual) Lymphocytes % (Manual) Seg Neutrophils # Seg Neutrophils # Man Lymphocytes # (Manual) D-Dimer ABG pH POC ABG pCO2 POC ABG pO2 ABG pO2 ABG HCO3 ABG O2 Saturation ABG Base Excess ABG Hemoglobin ABG Oxyhemoglobin ABG Sodium ABG Potassium ABG Chloride ABG Glucose Oxyhemoglobin Carboxyhemoglobin Sodium Potassium Chloride Carbon Dioxide BUN 29 H Creatinine 0.5 L Glucose 161 H POC Glucose 224 H 228 H Hemoglobin A1c Lactic Acid Calcium 7.8 L Magnesium Ferritin Total Bilirubin AST 89 H ALT 129 H Alkaline Phosphatase Lactate Dehydrogenase Total Creatine Kinase C-Reactive Protein Total Protein 5.8 L Albumin 2.5 L Triglycerides Arterial Blood Glucose Arterial Blood Ionized Calcium Ur Specific [place] Urine WBC (Auto) Vancomycin Trough Coronavirus (PCR) 11/25/20 11/25/20 11/26/20 20:45 23:28 04:00 WBC RBC Hgb Hct RDW Plt Count Lymph % (Auto) [place] % (Auto) Lymph # (Auto) [place] # (Auto) Baso # (Auto) Seg Neutrophils % Seg Neuts % (Manual) Lymphocytes % (Manual) Seg Neutrophils # Seg Neutrophils # Man Lymphocytes # (Manual) D-Dimer ABG pH POC ABG pCO2 POC ABG pO2 ABG pO2 ABG HCO3 ABG O2 Saturation ABG Base Excess ABG Hemoglobin ABG Oxyhemoglobin ABG Sodium ABG Potassium ABG Chloride ABG Glucose Oxyhemoglobin Carboxyhemoglobin Sodium Potassium Chloride Carbon Dioxide BUN Creatinine Glucose POC Glucose 177 H 243 H Hemoglobin A1c Lactic Acid Calcium Magnesium Ferritin 778.8 H Total Bilirubin AST ALT Alkaline Phosphatase Lactate Dehydrogenase Total Creatine Kinase C-Reactive Protein Total Protein Albumin Triglycerides Arterial Blood Glucose Arterial Blood Ionized Calcium Ur Specific [place] Urine WBC (Auto) Vancomycin Trough Coronavirus (PCR) 11/26/20 11/26/20 11/26/20 04:00 05:34 06:04 WBC RBC Hgb Hct RDW Plt Count Lymph % (Auto) [place] % (Auto) Lymph # (Auto) [place] # (Auto) Baso # (Auto) Seg Neutrophils % Seg Neuts % (Manual) Lymphocytes % (Manual) Seg Neutrophils # Seg Neutrophils # Man Lymphocytes # (Manual) D-Dimer 926.11 H ABG pH POC ABG pCO2 POC ABG pO2 ABG pO2 ABG HCO3 ABG O2 Saturation ABG Base Excess ABG Hemoglobin ABG Oxyhemoglobin ABG Sodium ABG Potassium ABG Chloride ABG Glucose Oxyhemoglobin Carboxyhemoglobin Sodium Potassium Chloride Carbon Dioxide 39 H D BUN 30 H Creatinine 0.5 L Glucose 193 H POC Glucose 178 H Hemoglobin A1c Lactic Acid Calcium 7.7 L Magnesium Ferritin Total Bilirubin AST 65 H ALT 132 H Alkaline Phosphatase Lactate Dehydrogenase 288 H Total Creatine Kinase C-Reactive Protein 1.40 H Total Protein 5.7 L Albumin 2.4 L Triglycerides Arterial Blood Glucose Arterial Blood Ionized Calcium Ur Specific [place] Urine WBC (Auto) Vancomycin Trough Coronavirus (PCR) 11/26/20 11/26/20 11/26/20 06:04 08:47 11:20 WBC 12.4 H RBC Hgb Hct RDW Plt Count Lymph % (Auto) [place] % (Auto) Lymph # (Auto) [place] # (Auto) Baso # (Auto) Seg Neutrophils % Seg Neuts % (Manual) 98.0 H Lymphocytes % (Manual) 1.0 L Seg Neutrophils # Seg Neutrophils # Man 12.2 H Lymphocytes # (Manual) 0.1 L D-Dimer ABG pH POC ABG pCO2 75.2 H POC ABG pO2 61.9 L ABG pO2 ABG HCO3 ABG O2 Saturation ABG Base Excess ABG Hemoglobin ABG Oxyhemoglobin 90.3 L ABG Sodium ABG Potassium ABG Chloride ABG Glucose 243 H Oxyhemoglobin Carboxyhemoglobin Sodium Potassium Chloride Carbon Dioxide BUN Creatinine Glucose POC Glucose 255 H Hemoglobin A1c Lactic Acid Calcium Magnesium Ferritin Total Bilirubin AST ALT Alkaline Phosphatase Lactate Dehydrogenase Total Creatine Kinase C-Reactive Protein Total Protein Albumin Triglycerides Arterial Blood Glucose 243 H Arterial Blood Ionized Calcium Ur Specific [place] Urine WBC (Auto) Vancomycin Trough Coronavirus (PCR) 11/26/20 11/26/20 11/26/20 16:20 17:15 23:41 WBC RBC Hgb Hct RDW Plt Count Lymph % (Auto) [place] % (Auto) Lymph # (Auto) [place] # (Auto) Baso # (Auto) Seg Neutrophils % Seg Neuts % (Manual) Lymphocytes % (Manual) Seg Neutrophils # Seg Neutrophils # Man Lymphocytes # (Manual) D-Dimer ABG pH POC ABG pCO2 66.6 H POC ABG pO2 78.1 L ABG pO2 ABG HCO3 ABG O2 Saturation ABG Base Excess ABG Hemoglobin ABG Oxyhemoglobin ABG Sodium ABG Potassium ABG Chloride ABG Glucose 244 H Oxyhemoglobin Carboxyhemoglobin Sodium Potassium Chloride Carbon Dioxide BUN Creatinine Glucose POC Glucose 219 H 210 H Hemoglobin A1c Lactic Acid Calcium Magnesium Ferritin Total Bilirubin AST ALT Alkaline Phosphatase Lactate Dehydrogenase Total Creatine Kinase C-Reactive Protein Total Protein Albumin Triglycerides Arterial Blood Glucose 244 H Arterial Blood Ionized Calcium Ur Specific [place] Urine WBC (Auto) Vancomycin Trough Coronavirus (PCR) 11/27/20 11/27/20 11/27/20 04:46 05:38 06:25 WBC 13.8 H RBC Hgb Hct RDW Plt Count Lymph % (Auto) 2.0 L [place] % (Auto) Lymph # (Auto) 0.3 L [place] # (Auto) Baso # (Auto) Seg Neutrophils % Seg Neuts % (Manual) 96.0 H Lymphocytes % (Manual) Seg Neutrophils # 12.7 H Seg Neutrophils # Man 13.2 H Lymphocytes # (Manual) 0.0 L D-Dimer ABG pH POC ABG pCO2 63.0 H POC ABG pO2 53.6 L ABG pO2 ABG HCO3 ABG O2 Saturation ABG Base Excess ABG Hemoglobin ABG Oxyhemoglobin 87.8 L ABG Sodium 115.4 L ABG Potassium ABG Chloride ABG Glucose 219 H Oxyhemoglobin Carboxyhemoglobin Sodium Potassium Chloride Carbon Dioxide BUN Creatinine Glucose POC Glucose 227 H Hemoglobin A1c Lactic Acid Calcium Magnesium Ferritin Total Bilirubin AST ALT Alkaline Phosphatase Lactate Dehydrogenase Total Creatine Kinase C-Reactive Protein Total Protein Albumin Triglycerides Arterial Blood Glucose 219 H Arterial Blood Ionized Calcium Ur Specific [place] Urine WBC (Auto) Vancomycin Trough Coronavirus (PCR) 11/27/20 11/27/20 11/27/20 06:25 18:05 23:29 WBC RBC Hgb Hct RDW Plt Count Lymph % (Auto) [place] % (Auto) Lymph # (Auto) [place] # (Auto) Baso # (Auto) Seg Neutrophils % Seg Neuts % (Manual) Lymphocytes % (Manual) Seg Neutrophils # Seg Neutrophils # Man Lymphocytes # (Manual) D-Dimer ABG pH POC ABG pCO2 POC ABG pO2 ABG pO2 ABG HCO3 ABG O2 Saturation ABG Base Excess ABG Hemoglobin ABG Oxyhemoglobin ABG Sodium ABG Potassium ABG Chloride ABG Glucose Oxyhemoglobin Carboxyhemoglobin Sodium Potassium Chloride Carbon Dioxide 38 H BUN 34 H Creatinine 0.4 L Glucose 243 H POC Glucose 329 H 227 H Hemoglobin A1c Lactic Acid Calcium 7.9 L Magnesium Ferritin Total Bilirubin AST 50 H ALT 110 H Alkaline Phosphatase Lactate Dehydrogenase Total Creatine Kinase C-Reactive Protein Total Protein 6.1 L Albumin 2.4 L Triglycerides Arterial Blood Glucose Arterial Blood Ionized Calcium Ur Specific [place] Urine WBC (Auto) Vancomycin Trough Coronavirus (PCR) 11/28/20 11/28/20 11/28/20 03:45 03:45 03:46 WBC 12.2 H RBC Hgb Hct RDW Plt Count Lymph % (Auto) [place] % (Auto) Lymph # (Auto) [place] # (Auto) Baso # (Auto) Seg Neutrophils % Seg Neuts % (Manual) 93.0 H Lymphocytes % (Manual) 2.0 L Seg Neutrophils # Seg Neutrophils # Man 11.3 H Lymphocytes # (Manual) 0.2 L D-Dimer ABG pH POC ABG pCO2 68.4 H POC ABG pO2 55.4 L ABG pO2 ABG HCO3 ABG O2 Saturation ABG Base Excess ABG Hemoglobin ABG Oxyhemoglobin ABG Sodium ABG Potassium ABG Chloride ABG Glucose 197 H Oxyhemoglobin Carboxyhemoglobin Sodium Potassium Chloride Carbon Dioxide 36 H BUN 37 H Creatinine 0.4 L Glucose 194 H POC Glucose Hemoglobin A1c Lactic Acid Calcium 8.1 L Magnesium Ferritin Total Bilirubin AST ALT 86 H Alkaline Phosphatase Lactate Dehydrogenase Total Creatine Kinase C-Reactive Protein Total Protein 6.0 L Albumin 2.3 L Triglycerides Arterial Blood Glucose 197 H Arterial Blood Ionized Calcium Ur Specific [place] Urine WBC (Auto) Vancomycin Trough Coronavirus (PCR) 11/28/20 11/28/20 11/29/20 05:24 12:21 04:41 WBC RBC Hgb Hct RDW Plt Count Lymph % (Auto) [place] % (Auto) Lymph # (Auto) [place] # (Auto) Baso # (Auto) Seg Neutrophils % Seg Neuts % (Manual) Lymphocytes % (Manual) Seg Neutrophils # Seg Neutrophils # Man Lymphocytes # (Manual) D-Dimer ABG pH POC ABG pCO2 55.1 H POC ABG pO2 53.6 L ABG pO2 ABG HCO3 ABG O2 Saturation ABG Base Excess ABG Hemoglobin ABG Oxyhemoglobin 87.1 L ABG Sodium 131.2 L ABG Potassium ABG Chloride ABG Glucose 164 H Oxyhemoglobin Carboxyhemoglobin Sodium Potassium Chloride Carbon Dioxide BUN Creatinine Glucose POC Glucose 173 H 126 H Hemoglobin A1c Lactic Acid Calcium Magnesium Ferritin Total Bilirubin AST ALT Alkaline Phosphatase Lactate Dehydrogenase Total Creatine Kinase C-Reactive Protein Total Protein Albumin Triglycerides Arterial Blood Glucose 164 H Arterial Blood Ionized Calcium 4.4 L Ur Specific [place] Urine WBC (Auto) Vancomycin Trough Coronavirus (PCR) 11/29/20 11/29/20 11/29/20 05:29 12:41 13:28 WBC RBC Hgb Hct RDW Plt Count Lymph % (Auto) [place] % (Auto) Lymph # (Auto) [place] # (Auto) Baso # (Auto) Seg Neutrophils % Seg Neuts % (Manual) Lymphocytes % (Manual) Seg Neutrophils # Seg Neutrophils # Man Lymphocytes # (Manual) D-Dimer ABG pH POC ABG pCO2 POC ABG pO2 ABG pO2 ABG HCO3 ABG O2 Saturation ABG Base Excess ABG Hemoglobin ABG Oxyhemoglobin ABG Sodium ABG Potassium ABG Chloride ABG Glucose Oxyhemoglobin Carboxyhemoglobin Sodium Potassium Chloride Carbon Dioxide 40 H BUN 32 H Creatinine 0.4 L Glucose 274 H POC Glucose 173 H 257 H Hemoglobin A1c Lactic Acid Calcium 7.2 L Magnesium Ferritin Total Bilirubin AST 57 H ALT 102 H Alkaline Phosphatase Lactate Dehydrogenase Total Creatine Kinase C-Reactive Protein Total Protein 5.7 L Albumin 2.1 L Triglycerides Arterial Blood Glucose Arterial Blood Ionized Calcium Ur Specific [place] Urine WBC (Auto) Vancomycin Trough Coronavirus (PCR) 11/29/20 11/29/20 11/29/20 15:40 17:36 21:26 WBC RBC Hgb Hct RDW Plt Count Lymph % (Auto) [place] % (Auto) Lymph # (Auto) [place] # (Auto) Baso # (Auto) Seg Neutrophils % Seg Neuts % (Manual) Lymphocytes % (Manual) Seg Neutrophils # Seg Neutrophils # Man Lymphocytes # (Manual) D-Dimer ABG pH POC ABG pCO2 POC ABG pO2 ABG pO2 ABG HCO3 ABG O2 Saturation ABG Base Excess ABG Hemoglobin ABG Oxyhemoglobin ABG Sodium ABG Potassium ABG Chloride ABG Glucose Oxyhemoglobin Carboxyhemoglobin Sodium Potassium Chloride Carbon Dioxide BUN Creatinine Glucose POC Glucose 240 H 244 H Hemoglobin A1c Lactic Acid Calcium Magnesium Ferritin Total Bilirubin AST ALT Alkaline Phosphatase Lactate Dehydrogenase Total Creatine Kinase C-Reactive Protein Total Protein Albumin Triglycerides Arterial Blood Glucose Arterial Blood Ionized Calcium Ur Specific [place] Urine WBC (Auto) Vancomycin Trough 4.0 L Coronavirus (PCR) 11/29/20 11/30/20 11/30/20 23:26 03:30 03:30 WBC RBC Hgb Hct RDW Plt Count Lymph % (Auto) [place] % (Auto) Lymph # (Auto) [place] # (Auto) Baso # (Auto) Seg Neutrophils % Seg Neuts % (Manual) 97.0 H Lymphocytes % (Manual) 1.0 L Seg Neutrophils # Seg Neutrophils # Man 9.9 H Lymphocytes # (Manual) 0.1 L D-Dimer ABG pH POC ABG pCO2 POC ABG pO2 ABG pO2 ABG HCO3 ABG O2 Saturation ABG Base Excess ABG Hemoglobin ABG Oxyhemoglobin ABG Sodium ABG Potassium ABG Chloride ABG Glucose Oxyhemoglobin Carboxyhemoglobin Sodium Potassium Chloride Carbon Dioxide 38 H BUN 34 H Creatinine 0.4 L Glucose 305 H POC Glucose 283 H Hemoglobin A1c Lactic Acid Calcium 7.6 L Magnesium Ferritin Total Bilirubin AST ALT 89 H Alkaline Phosphatase Lactate Dehydrogenase Total Creatine Kinase C-Reactive Protein Total Protein 6.0 L Albumin 2.3 L Triglycerides Arterial Blood Glucose Arterial Blood Ionized Calcium Ur Specific [place] Urine WBC (Auto) Vancomycin Trough Coronavirus (PCR) 11/30/20 11/30/20 11/30/20 03:57 05:22 12:05 WBC RBC Hgb Hct RDW Plt Count Lymph % (Auto) [place] % (Auto) Lymph # (Auto) [place] # (Auto) Baso # (Auto) Seg Neutrophils % Seg Neuts % (Manual) Lymphocytes % (Manual) Seg Neutrophils # Seg Neutrophils # Man Lymphocytes # (Manual) D-Dimer ABG pH POC ABG pCO2 60.8 H POC ABG pO2 51.1 L ABG pO2 ABG HCO3 ABG O2 Saturation ABG Base Excess ABG Hemoglobin ABG Oxyhemoglobin 84.6 L ABG Sodium ABG Potassium ABG Chloride ABG Glucose 315 H Oxyhemoglobin Carboxyhemoglobin Sodium Potassium Chloride Carbon Dioxide BUN Creatinine Glucose POC Glucose 295 H 413 H Hemoglobin A1c Lactic Acid Calcium Magnesium Ferritin Total Bilirubin AST ALT Alkaline Phosphatase Lactate Dehydrogenase Total Creatine Kinase C-Reactive Protein Total Protein Albumin Triglycerides Arterial Blood Glucose 315 H Arterial Blood Ionized Calcium 4.5 L Ur Specific [place] Urine WBC (Auto) Vancomycin Trough Coronavirus (PCR) 11/30/20 11/30/20 12/01/20 17:24 23:25 02:14 WBC RBC Hgb Hct RDW Plt Count Lymph % (Auto) [place] % (Auto) Lymph # (Auto) [place] # (Auto) Baso # (Auto) Seg Neutrophils % Seg Neuts % (Manual) Lymphocytes % (Manual) Seg Neutrophils # Seg Neutrophils # Man Lymphocytes # (Manual) D-Dimer ABG pH 7.278 L POC ABG pCO2 78.1 H POC ABG pO2 79.5 L ABG pO2 ABG HCO3 ABG O2 Saturation ABG Base Excess ABG Hemoglobin 11.6 L ABG Oxyhemoglobin ABG Sodium 134.5 L ABG Potassium 4.6 H ABG Chloride ABG Glucose 286 H Oxyhemoglobin Carboxyhemoglobin Sodium Potassium Chloride Carbon Dioxide BUN Creatinine Glucose POC Glucose 305 H 302 H Hemoglobin A1c Lactic Acid Calcium Magnesium Ferritin Total Bilirubin AST ALT Alkaline Phosphatase Lactate Dehydrogenase Total Creatine Kinase C-Reactive Protein Total Protein Albumin Triglycerides Arterial Blood Glucose 286 H Arterial Blood Ionized Calcium Ur Specific [place] Urine WBC (Auto) Vancomycin Trough Coronavirus (PCR) 02/16/21 02/16/21 02/16/21 03:35 03:35 05:22 WBC 13.4 H RBC 3.54 L Hgb 10.4 L Hct 31.8 L RDW Plt Count Lymph % (Auto) [place] % (Auto) Lymph # (Auto) [place] # (Auto) Baso # (Auto) Seg Neutrophils % Seg Neuts % (Manual) 95.0 H Lymphocytes % (Manual) 3.0 L Seg Neutrophils # Seg Neutrophils # Man 12.7 H Lymphocytes # (Manual) 0.4 L D-Dimer ABG pH POC ABG pCO2 POC ABG pO2 ABG pO2 ABG HCO3 ABG O2 Saturation ABG Base Excess ABG Hemoglobin ABG Oxyhemoglobin ABG Sodium ABG Potassium ABG Chloride ABG Glucose Oxyhemoglobin Carboxyhemoglobin Sodium Potassium Chloride Carbon Dioxide 35 H BUN 34 H Creatinine 0.5 L Glucose 279 H POC Glucose 259 H Hemoglobin A1c Lactic Acid Calcium 7.6 L Magnesium Ferritin Total Bilirubin AST ALT 63 H Alkaline Phosphatase Lactate Dehydrogenase Total Creatine Kinase C-Reactive Protein Total Protein 4.8 L Albumin 2.1 L Triglycerides Arterial Blood Glucose Arterial Blood Ionized Calcium Ur Specific [place] Urine WBC (Auto) Vancomycin Trough Coronavirus (PCR) 12/01/20 12/01/20 12/01/20 12:05 17:40 23:46 WBC RBC Hgb Hct RDW Plt Count Lymph % (Auto) [place] % (Auto) Lymph # (Auto) [place] # (Auto) Baso # (Auto) Seg Neutrophils % Seg Neuts % (Manual) Lymphocytes % (Manual) Seg Neutrophils # Seg Neutrophils # Man Lymphocytes # (Manual) D-Dimer ABG pH POC ABG pCO2 POC ABG pO2 ABG pO2 ABG HCO3 ABG O2 Saturation ABG Base Excess ABG Hemoglobin ABG Oxyhemoglobin ABG Sodium ABG Potassium ABG Chloride ABG Glucose Oxyhemoglobin Carboxyhemoglobin Sodium Potassium Chloride Carbon Dioxide BUN Creatinine Glucose POC Glucose 197 H 244 H 284 H Hemoglobin A1c Lactic Acid Calcium Magnesium Ferritin Total Bilirubin AST ALT Alkaline Phosphatase Lactate Dehydrogenase Total Creatine Kinase C-Reactive Protein Total Protein Albumin Triglycerides Arterial Blood Glucose Arterial Blood Ionized Calcium Ur Specific [place] Urine WBC (Auto) Vancomycin Trough Coronavirus (PCR) 12/02/20 12/02/20 12/02/20 02:14 03:03 04:11 WBC 16.5 H RBC 3.55 L Hgb 10.5 L Hct 31.9 L RDW Plt Count Lymph % (Auto) [place] % (Auto) Lymph # (Auto) [place] # (Auto) Baso # (Auto) Seg Neutrophils % Seg Neuts % (Manual) 90.0 H Lymphocytes % (Manual) 3.0 L Seg Neutrophils # Seg Neutrophils # Man 14.9 H Lymphocytes # (Manual) 0.5 L D-Dimer ABG pH POC ABG pCO2 74.8 H POC ABG pO2 58.9 L ABG pO2 ABG HCO3 ABG O2 Saturation ABG Base Excess ABG Hemoglobin 11.5 L ABG Oxyhemoglobin ABG Sodium ABG Potassium ABG Chloride ABG Glucose 264 H Oxyhemoglobin Carboxyhemoglobin Sodium Potassium Chloride Carbon Dioxide 37 H BUN 30 H Creatinine 0.4 L Glucose 245 H POC Glucose Hemoglobin A1c Lactic Acid Calcium 7.5 L Magnesium Ferritin Total Bilirubin AST ALT Alkaline Phosphatase Lactate Dehydrogenase Total Creatine Kinase C-Reactive Protein Total Protein 5.2 L Albumin 2.2 L Triglycerides Arterial Blood Glucose 264 H Arterial Blood Ionized Calcium 4.5 L Ur Specific [place] Urine WBC (Auto) Vancomycin Trough Coronavirus (PCR) 12/02/20 12/02/20 12/02/20 05:19 11:46 17:52 WBC RBC Hgb Hct RDW Plt Count Lymph % (Auto) [place] % (Auto) Lymph # (Auto) [place] # (Auto) Baso # (Auto) Seg Neutrophils % Seg Neuts % (Manual) Lymphocytes % (Manual) Seg Neutrophils # Seg Neutrophils # Man Lymphocytes # (Manual) D-Dimer ABG pH POC ABG pCO2 POC ABG pO2 ABG pO2 ABG HCO3 ABG O2 Saturation ABG Base Excess ABG Hemoglobin ABG Oxyhemoglobin ABG Sodium ABG Potassium ABG Chloride ABG Glucose Oxyhemoglobin Carboxyhemoglobin Sodium Potassium Chloride Carbon Dioxide BUN Creatinine Glucose POC Glucose 238 H 236 H 233 H Hemoglobin A1c Lactic Acid Calcium Magnesium Ferritin Total Bilirubin AST ALT Alkaline Phosphatase Lactate Dehydrogenase Total Creatine Kinase C-Reactive Protein Total Protein Albumin Triglycerides Arterial Blood Glucose Arterial Blood Ionized Calcium Ur Specific [place] Urine WBC (Auto) Vancomycin Trough Coronavirus (PCR) 12/02/20 12/03/20 12/03/20 23:23 03:21 04:35 WBC RBC Hgb Hct RDW Plt Count 112 L Lymph % (Auto) [place] % (Auto) Lymph # (Auto) [place] # (Auto) Baso # (Auto) Seg Neutrophils % Seg Neuts % (Manual) 93.0 H Lymphocytes % (Manual) 4.0 L Seg Neutrophils # Seg Neutrophils # Man 9.1 H Lymphocytes # (Manual) 0.4 L D-Dimer ABG pH 7.299 L POC ABG pCO2 82.1 H POC ABG pO2 62.4 L ABG pO2 ABG HCO3 ABG O2 Saturation ABG Base Excess ABG Hemoglobin 11.5 L ABG Oxyhemoglobin 89.6 L ABG Sodium 134.3 L ABG Potassium ABG Chloride 95.0 L ABG Glucose 203 H Oxyhemoglobin Carboxyhemoglobin Sodium Potassium Chloride Carbon Dioxide BUN Creatinine Glucose POC Glucose 213 H Hemoglobin A1c Lactic Acid Calcium Magnesium Ferritin Total Bilirubin AST ALT Alkaline Phosphatase Lactate Dehydrogenase Total Creatine Kinase C-Reactive Protein Total Protein Albumin Triglycerides Arterial Blood Glucose 203 H Arterial Blood Ionized Calcium 4.5 L Ur Specific [place] Urine WBC (Auto) Vancomycin Trough Coronavirus (PCR) 12/03/20 12/03/20 12/03/20 04:35 05:42 11:28 WBC RBC Hgb Hct RDW Plt Count Lymph % (Auto) [place] % (Auto) Lymph # (Auto) [place] # (Auto) Baso # (Auto) Seg Neutrophils % Seg Neuts % (Manual) Lymphocytes % (Manual) Seg Neutrophils # Seg Neutrophils # Man Lymphocytes # (Manual) D-Dimer ABG pH POC ABG pCO2 POC ABG pO2 ABG pO2 ABG HCO3 ABG O2 Saturation ABG Base Excess ABG Hemoglobin ABG Oxyhemoglobin ABG Sodium ABG Potassium ABG Chloride ABG Glucose Oxyhemoglobin Carboxyhemoglobin Sodium Potassium Chloride 97.8 L Carbon Dioxide 43 H* BUN 25 H Creatinine 0.3 L Glucose 214 H POC Glucose 193 H 211 H Hemoglobin A1c Lactic Acid Calcium 7.7 L Magnesium Ferritin Total Bilirubin AST ALT 63 H Alkaline Phosphatase 132 H Lactate Dehydrogenase Total Creatine Kinase C-Reactive Protein Total Protein 5.1 L Albumin 2.4 L Triglycerides Arterial Blood Glucose Arterial Blood Ionized Calcium Ur Specific [place] Urine WBC (Auto) Vancomycin Trough Coronavirus (PCR) 12/03/20 12/03/20 12/04/20 17:45 23:57 00:11 WBC RBC Hgb Hct RDW Plt Count Lymph % (Auto) [place] % (Auto) Lymph # (Auto) [place] # (Auto) Baso # (Auto) Seg Neutrophils % Seg Neuts % (Manual) Lymphocytes % (Manual) Seg Neutrophils # Seg Neutrophils # Man Lymphocytes # (Manual) D-Dimer ABG pH POC ABG pCO2 POC ABG pO2 ABG pO2 ABG HCO3 ABG O2 Saturation ABG Base Excess ABG Hemoglobin ABG Oxyhemoglobin ABG Sodium ABG Potassium ABG Chloride ABG Glucose Oxyhemoglobin Carboxyhemoglobin Sodium Potassium Chloride Carbon Dioxide BUN Creatinine Glucose POC Glucose 231 H 240 H 239 H Hemoglobin A1c Lactic Acid Calcium Magnesium Ferritin Total Bilirubin AST ALT Alkaline Phosphatase Lactate Dehydrogenase Total Creatine Kinase C-Reactive Protein Total Protein Albumin Triglycerides Arterial Blood Glucose Arterial Blood Ionized Calcium Ur Specific [place] Urine WBC (Auto) Vancomycin Trough Coronavirus (PCR) 12/04/20 12/04/20 12/04/20 04:00 05:20 05:34 WBC RBC Hgb Hct RDW Plt Count Lymph % (Auto) [place] % (Auto) Lymph # (Auto) [place] # (Auto) Baso # (Auto) Seg Neutrophils % Seg Neuts % (Manual) Lymphocytes % (Manual) Seg Neutrophils # Seg Neutrophils # Man Lymphocytes # (Manual) D-Dimer ABG pH POC ABG pCO2 84.4 H POC ABG pO2 68.0 L ABG pO2 ABG HCO3 ABG O2 Saturation ABG Base Excess ABG Hemoglobin 11.6 L ABG Oxyhemoglobin ABG Sodium 130.9 L ABG Potassium ABG Chloride 90.0 L ABG Glucose 244 H Oxyhemoglobin Carboxyhemoglobin Sodium Potassium Chloride Carbon Dioxide BUN Creatinine Glucose POC Glucose 241 H 213 H Hemoglobin A1c Lactic Acid Calcium Magnesium Ferritin Total Bilirubin AST ALT Alkaline Phosphatase Lactate Dehydrogenase Total Creatine Kinase C-Reactive Protein Total Protein Albumin Triglycerides Arterial Blood Glucose 244 H Arterial Blood Ionized Calcium 4.4 L Ur Specific [place] Urine WBC (Auto) Vancomycin Trough Coronavirus (PCR) 12/04/20 12/04/20 12/04/20 11:36 16:53 23:32 WBC RBC Hgb Hct RDW Plt Count Lymph % (Auto) [place] % (Auto) Lymph # (Auto) [place] # (Auto) Baso # (Auto) Seg Neutrophils % Seg Neuts % (Manual) Lymphocytes % (Manual) Seg Neutrophils # Seg Neutrophils # Man Lymphocytes # (Manual) D-Dimer ABG pH POC ABG pCO2 POC ABG pO2 ABG pO2 ABG HCO3 ABG O2 Saturation ABG Base Excess ABG Hemoglobin ABG Oxyhemoglobin ABG Sodium ABG Potassium ABG Chloride ABG Glucose Oxyhemoglobin Carboxyhemoglobin Sodium Potassium Chloride Carbon Dioxide BUN Creatinine Glucose POC Glucose 196 H 127 H 230 H Hemoglobin A1c Lactic Acid Calcium Magnesium Ferritin Total Bilirubin AST ALT Alkaline Phosphatase Lactate Dehydrogenase Total Creatine Kinase C-Reactive Protein Total Protein Albumin Triglycerides Arterial Blood Glucose Arterial Blood Ionized Calcium Ur Specific [place] Urine WBC (Auto) Vancomycin Trough Coronavirus (PCR) 12/04/20 12/05/20 12/05/20 Unknown 04:16 05:21 WBC RBC Hgb Hct RDW Plt Count Lymph % (Auto) [place] % (Auto) Lymph # (Auto) [place] # (Auto) Baso # (Auto) Seg Neutrophils % Seg Neuts % (Manual) Lymphocytes % (Manual) Seg Neutrophils # Seg Neutrophils # Man Lymphocytes # (Manual) D-Dimer ABG pH POC ABG pCO2 86.7 H POC ABG pO2 58.0 L ABG pO2 ABG HCO3 ABG O2 Saturation ABG Base Excess ABG Hemoglobin 11.6 L ABG Oxyhemoglobin 89 L ABG Sodium 130.1 L ABG Potassium 4.9 H ABG Chloride 89.0 L ABG Glucose 254 H Oxyhemoglobin Carboxyhemoglobin Sodium 136 L Potassium Chloride 90.0 L Carbon Dioxide 46 H* BUN 24 H Creatinine 0.3 L Glucose 226 H POC Glucose 213 H Hemoglobin A1c Lactic Acid Calcium 7.6 L Magnesium Ferritin Total Bilirubin AST 46 H ALT 78 H Alkaline Phosphatase 172 H Lactate Dehydrogenase Total Creatine Kinase C-Reactive Protein Total Protein 6.0 L Albumin 2.8 L Triglycerides 156 H Arterial Blood Glucose 254 H Arterial Blood Ionized Calcium 4.4 L Ur Specific [place] Urine WBC (Auto) Vancomycin Trough Coronavirus (PCR) 12/05/20 12/05/20 12/05/20 11:22 17:26 23:38 WBC RBC Hgb Hct RDW Plt Count Lymph % (Auto) [place] % (Auto) Lymph # (Auto) [place] # (Auto) Baso # (Auto) Seg Neutrophils % Seg Neuts % (Manual) Lymphocytes % (Manual) Seg Neutrophils # Seg Neutrophils # Man Lymphocytes # (Manual) D-Dimer ABG pH POC ABG pCO2 POC ABG pO2 ABG pO2 ABG HCO3 ABG O2 Saturation ABG Base Excess ABG Hemoglobin ABG Oxyhemoglobin ABG Sodium ABG Potassium ABG Chloride ABG Glucose Oxyhemoglobin Carboxyhemoglobin Sodium Potassium Chloride Carbon Dioxide BUN Creatinine Glucose POC Glucose 212 H 157 H 204 H Hemoglobin A1c Lactic Acid Calcium Magnesium Ferritin Total Bilirubin AST ALT Alkaline Phosphatase Lactate Dehydrogenase Total Creatine Kinase C-Reactive Protein Total Protein Albumin Triglycerides Arterial Blood Glucose Arterial Blood Ionized Calcium Ur Specific [place] Urine WBC (Auto) Vancomycin Trough Coronavirus (PCR) 12/06/20 12/06/20 12/06/20 04:31 04:31 05:12 WBC 17.0 H RBC 3.63 L Hgb 10.8 L D Hct 32.6 L D RDW Plt Count Lymph % (Auto) [place] % (Auto) Lymph # (Auto) [place] # (Auto) Baso # (Auto) Seg Neutrophils % Seg Neuts % (Manual) Lymphocytes % (Manual) Seg Neutrophils # Seg Neutrophils # Man Lymphocytes # (Manual) D-Dimer ABG pH POC ABG pCO2 85.9 H POC ABG pO2 57.6 L ABG pO2 ABG HCO3 ABG O2 Saturation ABG Base Excess ABG Hemoglobin ABG Oxyhemoglobin ABG Sodium 131.2 L ABG Potassium 4.8 H ABG Chloride 86.0 L ABG Glucose 200 H Oxyhemoglobin Carboxyhemoglobin Sodium 134 L Potassium 5.1 H Chloride 88.4 L Carbon Dioxide 47 H* BUN 23 H Creatinine 0.3 L Glucose 206 H POC Glucose Hemoglobin A1c Lactic Acid Calcium 8.3 L Magnesium Ferritin Total Bilirubin AST 48 H ALT 91 H Alkaline Phosphatase 140 H Lactate Dehydrogenase Total Creatine Kinase C-Reactive Protein Total Protein 5.7 L Albumin 2.6 L Triglycerides Arterial Blood Glucose 200 H Arterial Blood Ionized Calcium 4.4 L Ur Specific [place] Urine WBC (Auto) Vancomycin Trough Coronavirus (PCR) 12/06/20 12/06/20 12/06/20 05:24 12:18 16:45 WBC RBC Hgb Hct RDW Plt Count Lymph % (Auto) [place] % (Auto) Lymph # (Auto) [place] # (Auto) Baso # (Auto) Seg Neutrophils % Seg Neuts % (Manual) Lymphocytes % (Manual) Seg Neutrophils # Seg Neutrophils # Man Lymphocytes # (Manual) D-Dimer ABG pH POC ABG pCO2 POC ABG pO2 ABG pO2 ABG HCO3 ABG O2 Saturation ABG Base Excess ABG Hemoglobin ABG Oxyhemoglobin ABG Sodium ABG Potassium ABG Chloride ABG Glucose Oxyhemoglobin Carboxyhemoglobin Sodium Potassium Chloride Carbon Dioxide BUN Creatinine Glucose POC Glucose 186 H 187 H 150 H Hemoglobin A1c Lactic Acid Calcium Magnesium Ferritin Total Bilirubin AST ALT Alkaline Phosphatase Lactate Dehydrogenase Total Creatine Kinase C-Reactive Protein Total Protein Albumin Triglycerides Arterial Blood Glucose Arterial Blood Ionized Calcium Ur Specific [place] Urine WBC (Auto) Vancomycin Trough Coronavirus (PCR) 12/06/20 12/07/20 12/07/20 23:43 05:20 05:21 WBC RBC Hgb Hct RDW Plt Count Lymph % (Auto) [place] % (Auto) Lymph # (Auto) [place] # (Auto) Baso # (Auto) Seg Neutrophils % Seg Neuts % (Manual) Lymphocytes % (Manual) Seg Neutrophils # Seg Neutrophils # Man Lymphocytes # (Manual) D-Dimer ABG pH POC ABG pCO2 POC ABG pO2 ABG pO2 48.4 L ABG HCO3 50.8 H ABG O2 Saturation 86.2 L ABG Base Excess 22.4 H ABG Hemoglobin 11.0 L ABG Oxyhemoglobin ABG Sodium ABG Potassium ABG Chloride ABG Glucose Oxyhemoglobin 84.0 L Carboxyhemoglobin Sodium Potassium Chloride Carbon Dioxide BUN Creatinine Glucose POC Glucose 153 H 107 H Hemoglobin A1c Lactic Acid Calcium Magnesium Ferritin Total Bilirubin AST ALT Alkaline Phosphatase Lactate Dehydrogenase Total Creatine Kinase C-Reactive Protein Total Protein Albumin Triglycerides Arterial Blood Glucose Arterial Blood Ionized Calcium Ur Specific [place] Urine WBC (Auto) Vancomycin Trough Coronavirus (PCR) 12/07/20 12/07/20 12/07/20 13:20 14:28 17:35 WBC RBC Hgb Hct RDW Plt Count Lymph % (Auto) [place] % (Auto) Lymph # (Auto) [place] # (Auto) Baso # (Auto) Seg Neutrophils % Seg Neuts % (Manual) Lymphocytes % (Manual) Seg Neutrophils # Seg Neutrophils # Man Lymphocytes # (Manual) D-Dimer ABG pH POC ABG pCO2 74.1 H POC ABG pO2 68.5 L ABG pO2 ABG HCO3 ABG O2 Saturation ABG Base Excess ABG Hemoglobin 10.7 L ABG Oxyhemoglobin 91.9 L ABG Sodium 132.2 L ABG Potassium 4.7 H ABG Chloride 88.0 L ABG Glucose 138 H Oxyhemoglobin Carboxyhemoglobin Sodium 134 L Potassium Chloride 87.4 L Carbon Dioxide 49 H* BUN Creatinine 0.2 L Glucose 132 H POC Glucose 176 H Hemoglobin A1c Lactic Acid Calcium 7.7 L Magnesium Ferritin Total Bilirubin AST ALT Alkaline Phosphatase Lactate Dehydrogenase Total Creatine Kinase C-Reactive Protein Total Protein Albumin Triglycerides Arterial Blood Glucose 138 H Arterial Blood Ionized Calcium 4.0 L Ur Specific [place] Urine WBC (Auto) Vancomycin Trough Coronavirus (PCR) 12/07/20 12/08/20 12/08/20 23:44 04:12 05:29 WBC RBC Hgb Hct RDW Plt Count Lymph % (Auto) [place] % (Auto) Lymph # (Auto) [place] # (Auto) Baso # (Auto) Seg Neutrophils % Seg Neuts % (Manual) Lymphocytes % (Manual) Seg Neutrophils # Seg Neutrophils # Man Lymphocytes # (Manual) D-Dimer ABG pH POC ABG pCO2 POC ABG pO2 ABG pO2 69.7 L ABG HCO3 50.1 H ABG O2 Saturation ABG Base Excess 21.6 H ABG Hemoglobin 10.9 L ABG Oxyhemoglobin ABG Sodium ABG Potassium ABG Chloride ABG Glucose Oxyhemoglobin 93.2 L Carboxyhemoglobin Sodium Potassium Chloride Carbon Dioxide BUN Creatinine Glucose POC Glucose 143 H 143 H Hemoglobin A1c Lactic Acid Calcium Magnesium Ferritin Total Bilirubin AST ALT Alkaline Phosphatase Lactate Dehydrogenase Total Creatine Kinase C-Reactive Protein Total Protein Albumin Triglycerides Arterial Blood Glucose Arterial Blood Ionized Calcium Ur Specific [place] Urine WBC (Auto) Vancomycin Trough Coronavirus (PCR) 12/08/20 12/08/20 12/09/20 06:10 06:10 04:24 WBC 12.0 H RBC 3.18 L Hgb 9.5 L Hct 28.9 L RDW Plt Count Lymph % (Auto) [place] % (Auto) Lymph # (Auto) [place] # (Auto) Baso # (Auto) Seg Neutrophils % Seg Neuts % (Manual) 95.0 H Lymphocytes % (Manual) 3.0 L Seg Neutrophils # Seg Neutrophils # Man 11.4 H Lymphocytes # (Manual) 0.4 L D-Dimer ABG pH POC ABG pCO2 76.2 H POC ABG pO2 52.8 L ABG pO2 ABG HCO3 ABG O2 Saturation ABG Base Excess ABG Hemoglobin 11.7 L ABG Oxyhemoglobin ABG Sodium 132.0 L ABG Potassium ABG Chloride 87.0 L ABG Glucose 118 H Oxyhemoglobin Carboxyhemoglobin Sodium 133 L Potassium Chloride 86.3 L Carbon Dioxide 53 H* BUN Creatinine 0.2 L Glucose 156 H POC Glucose Hemoglobin A1c Lactic Acid Calcium 7.6 L Magnesium Ferritin Total Bilirubin AST ALT Alkaline Phosphatase Lactate Dehydrogenase Total Creatine Kinase C-Reactive Protein Total Protein Albumin Triglycerides Arterial Blood Glucose 118 H Arterial Blood Ionized Calcium 4.2 L Ur Specific [place] Urine WBC (Auto) Vancomycin Trough Coronavirus (PCR) 12/09/20 12/09/20 12/09/20 05:44 06:40 06:40 WBC 13.5 H RBC 3.28 L Hgb 9.7 L Hct 29.9 L RDW Plt Count Lymph % (Auto) [place] % (Auto) Lymph # (Auto) [place] # (Auto) Baso # (Auto) Seg Neutrophils % Seg Neuts % (Manual) Lymphocytes % (Manual) Seg Neutrophils # Seg Neutrophils # Man Lymphocytes # (Manual) D-Dimer ABG pH POC ABG pCO2 POC ABG pO2 ABG pO2 ABG HCO3 ABG O2 Saturation ABG Base Excess ABG Hemoglobin ABG Oxyhemoglobin ABG Sodium ABG Potassium ABG Chloride ABG Glucose Oxyhemoglobin Carboxyhemoglobin Sodium 135 L Potassium Chloride 89.5 L Carbon Dioxide 52 H* BUN Creatinine 0.3 L Glucose 114 H POC Glucose 117 H Hemoglobin A1c Lactic Acid Calcium 7.6 L Magnesium Ferritin Total Bilirubin AST ALT Alkaline Phosphatase Lactate Dehydrogenase Total Creatine Kinase C-Reactive Protein Total Protein Albumin Triglycerides Arterial Blood Glucose Arterial Blood Ionized Calcium Ur Specific [place] Urine WBC (Auto) Vancomycin Trough Coronavirus (PCR) 12/09/20 12/09/20 12/10/20 16:42 21:11 04:28 WBC RBC Hgb Hct RDW Plt Count Lymph % (Auto) [place] % (Auto) Lymph # (Auto) [place] # (Auto) Baso # (Auto) Seg Neutrophils % Seg Neuts % (Manual) Lymphocytes % (Manual) Seg Neutrophils # Seg Neutrophils # Man Lymphocytes # (Manual) D-Dimer ABG pH POC ABG pCO2 72.5 H 69.4 H 76.9 H POC ABG pO2 50.4 L 80.6 L 60.2 L ABG pO2 ABG HCO3 ABG O2 Saturation ABG Base Excess ABG Hemoglobin 10.4 L 10.7 L 10 L ABG Oxyhemoglobin 84.3 L 89.7 L ABG Sodium 133.7 L 133.7 L 133.8 L ABG Potassium ABG Chloride 90.0 L 91.0 L 91.0 L ABG Glucose 116 H 96 H 57 L Oxyhemoglobin Carboxyhemoglobin 0.4 L Sodium Potassium Chloride Carbon Dioxide BUN Creatinine Glucose POC Glucose Hemoglobin A1c Lactic Acid Calcium Magnesium Ferritin Total Bilirubin AST ALT Alkaline Phosphatase Lactate Dehydrogenase Total Creatine Kinase C-Reactive Protein Total Protein Albumin Triglycerides Arterial Blood Glucose 116 H 96 H 57 L Arterial Blood Ionized Calcium 4.2 L 4.3 L 4.2 L Ur Specific [place] Urine WBC (Auto) Vancomycin Trough Coronavirus (PCR) 12/10/20 12/10/20 12/10/20 05:09 05:41 11:50 WBC RBC Hgb Hct RDW Plt Count Lymph % (Auto) [place] % (Auto) Lymph # (Auto) [place] # (Auto) Baso # (Auto) Seg Neutrophils % Seg Neuts % (Manual) Lymphocytes % (Manual) Seg Neutrophils # Seg Neutrophils # Man Lymphocytes # (Manual) D-Dimer ABG pH POC ABG pCO2 POC ABG pO2 ABG pO2 ABG HCO3 ABG O2 Saturation ABG Base Excess ABG Hemoglobin ABG Oxyhemoglobin ABG Sodium ABG Potassium ABG Chloride ABG Glucose Oxyhemoglobin Carboxyhemoglobin Sodium Potassium Chloride Carbon Dioxide BUN Creatinine Glucose POC Glucose 41 L 138 H 106 H Hemoglobin A1c Lactic Acid Calcium Magnesium Ferritin Total Bilirubin AST ALT Alkaline Phosphatase Lactate Dehydrogenase Total Creatine Kinase C-Reactive Protein Total Protein Albumin Triglycerides Arterial Blood Glucose Arterial Blood Ionized Calcium Ur Specific [place] Urine WBC (Auto) Vancomycin Trough Coronavirus (PCR) 12/10/20 12/10/20 12/11/20 17:34 23:25 04:06 WBC RBC Hgb Hct RDW Plt Count Lymph % (Auto) [place] % (Auto) Lymph # (Auto) [place] # (Auto) Baso # (Auto) Seg Neutrophils % Seg Neuts % (Manual) Lymphocytes % (Manual) Seg Neutrophils # Seg Neutrophils # Man Lymphocytes # (Manual) D-Dimer ABG pH POC ABG pCO2 71.0 H POC ABG pO2 56.8 L ABG pO2 ABG HCO3 ABG O2 Saturation ABG Base Excess ABG Hemoglobin 10.1 L ABG Oxyhemoglobin 88.5 L ABG Sodium 132.3 L ABG Potassium ABG Chloride 91.0 L ABG Glucose 168 H Oxyhemoglobin Carboxyhemoglobin Sodium Potassium Chloride Carbon Dioxide BUN Creatinine Glucose POC Glucose 121 H 167 H Hemoglobin A1c Lactic Acid Calcium Magnesium Ferritin Total Bilirubin AST ALT Alkaline Phosphatase Lactate Dehydrogenase Total Creatine Kinase C-Reactive Protein Total Protein Albumin Triglycerides Arterial Blood Glucose 168 H Arterial Blood Ionized Calcium 4.1 L Ur Specific [place] Urine WBC (Auto) Vancomycin Trough Coronavirus (PCR) 12/11/20 12/11/20 12/11/20 05:21 11:44 15:40 WBC RBC Hgb Hct RDW Plt Count Lymph % (Auto) [place] % (Auto) Lymph # (Auto) [place] # (Auto) Baso # (Auto) Seg Neutrophils % Seg Neuts % (Manual) Lymphocytes % (Manual) Seg Neutrophils # Seg Neutrophils # Man Lymphocytes # (Manual) D-Dimer ABG pH 7.454 H POC ABG pCO2 58.6 H POC ABG pO2 50.7 L ABG pO2 ABG HCO3 ABG O2 Saturation ABG Base Excess ABG Hemoglobin 10.1 L ABG Oxyhemoglobin 86.2 L ABG Sodium 131.2 L ABG Potassium ABG Chloride 92.0 L ABG Glucose 197 H Oxyhemoglobin Carboxyhemoglobin Sodium Potassium Chloride Carbon Dioxide BUN Creatinine Glucose POC Glucose 149 H 202 H Hemoglobin A1c Lactic Acid Calcium Magnesium Ferritin Total Bilirubin AST ALT Alkaline Phosphatase Lactate Dehydrogenase Total Creatine Kinase C-Reactive Protein Total Protein Albumin Triglycerides Arterial Blood Glucose 197 H Arterial Blood Ionized Calcium 4.2 L Ur Specific [place] Urine WBC (Auto) Vancomycin Trough Coronavirus (PCR) 12/11/20 12/11/20 12/12/20 17:09 23:16 05:09 WBC RBC Hgb Hct RDW Plt Count Lymph % (Auto) [place] % (Auto) Lymph # (Auto) [place] # (Auto) Baso # (Auto) Seg Neutrophils % Seg Neuts % (Manual) Lymphocytes % (Manual) Seg Neutrophils # Seg Neutrophils # Man Lymphocytes # (Manual) D-Dimer ABG pH POC ABG pCO2 63.1 H POC ABG pO2 62.6 L ABG pO2 ABG HCO3 ABG O2 Saturation ABG Base Excess ABG Hemoglobin 10.3 L ABG Oxyhemoglobin ABG Sodium 130.3 L ABG Potassium 4.6 H ABG Chloride 92.0 L ABG Glucose 215 H Oxyhemoglobin Carboxyhemoglobin Sodium Potassium Chloride Carbon Dioxide BUN Creatinine Glucose POC Glucose 181 H 192 H Hemoglobin A1c Lactic Acid Calcium Magnesium Ferritin Total Bilirubin AST ALT Alkaline Phosphatase Lactate Dehydrogenase Total Creatine Kinase C-Reactive Protein Total Protein Albumin Triglycerides Arterial Blood Glucose 215 H Arterial Blood Ionized Calcium 4.4 L Ur Specific [place] Urine WBC (Auto) Vancomycin Trough Coronavirus (PCR) 12/12/20 12/12/20 12/12/20 05:16 05:47 11:41 WBC RBC Hgb Hct RDW Plt Count Lymph % (Auto) [place] % (Auto) Lymph # (Auto) [place] # (Auto) Baso # (Auto) Seg Neutrophils % Seg Neuts % (Manual) Lymphocytes % (Manual) Seg Neutrophils # Seg Neutrophils # Man Lymphocytes # (Manual) D-Dimer ABG pH POC ABG pCO2 POC ABG pO2 ABG pO2 ABG HCO3 ABG O2 Saturation ABG Base Excess ABG Hemoglobin ABG Oxyhemoglobin ABG Sodium ABG Potassium ABG Chloride ABG Glucose Oxyhemoglobin Carboxyhemoglobin Sodium Potassium Chloride Carbon Dioxide BUN Creatinine Glucose POC Glucose 208 H 218 H Hemoglobin A1c Lactic Acid Calcium Magnesium Ferritin Total Bilirubin AST ALT Alkaline Phosphatase Lactate Dehydrogenase Total Creatine Kinase C-Reactive Protein Total Protein Albumin Triglycerides 150 H Arterial Blood Glucose Arterial Blood Ionized Calcium Ur Specific [place] Urine WBC (Auto) Vancomycin Trough Coronavirus (PCR) 12/12/20 12/12/20 12/13/20 17:05 23:18 03:36 WBC RBC Hgb Hct RDW Plt Count Lymph % (Auto) [place] % (Auto) Lymph # (Auto) [place] # (Auto) Baso # (Auto) Seg Neutrophils % Seg Neuts % (Manual) Lymphocytes % (Manual) Seg Neutrophils # Seg Neutrophils # Man Lymphocytes # (Manual) D-Dimer ABG pH POC ABG pCO2 61.5 H POC ABG pO2 77.6 L ABG pO2 ABG HCO3 ABG O2 Saturation ABG Base Excess ABG Hemoglobin 10.2 L ABG Oxyhemoglobin ABG Sodium 127.5 L ABG Potassium ABG Chloride 91.0 L ABG Glucose 232 H Oxyhemoglobin Carboxyhemoglobin Sodium Potassium Chloride Carbon Dioxide BUN Creatinine Glucose POC Glucose 187 H 176 H Hemoglobin A1c Lactic Acid Calcium Magnesium Ferritin Total Bilirubin AST ALT Alkaline Phosphatase Lactate Dehydrogenase Total Creatine Kinase C-Reactive Protein Total Protein Albumin Triglycerides Arterial Blood Glucose 232 H Arterial Blood Ionized Calcium 4.2 L Ur Specific [place] Urine WBC (Auto) Vancomycin Trough Coronavirus (PCR) 12/13/20 12/13/20 12/13/20 05:13 10:00 11:30 WBC RBC 3.50 L Hgb 10.5 L Hct 31.9 L RDW Plt Count Lymph % (Auto) [place] % (Auto) Lymph # (Auto) [place] # (Auto) Baso # (Auto) Seg Neutrophils % Seg Neuts % (Manual) 96.0 H Lymphocytes % (Manual) Seg Neutrophils # Seg Neutrophils # Man 9.2 H Lymphocytes # (Manual) 0.0 L D-Dimer ABG pH POC ABG pCO2 POC ABG pO2 ABG pO2 ABG HCO3 ABG O2 Saturation ABG Base Excess ABG Hemoglobin ABG Oxyhemoglobin ABG Sodium ABG Potassium ABG Chloride ABG Glucose Oxyhemoglobin Carboxyhemoglobin Sodium Potassium Chloride Carbon Dioxide BUN Creatinine Glucose POC Glucose 204 H Hemoglobin A1c Lactic Acid Calcium Magnesium Ferritin Total Bilirubin AST ALT Alkaline Phosphatase Lactate Dehydrogenase Total Creatine Kinase C-Reactive Protein Total Protein Albumin Triglycerides Arterial Blood Glucose Arterial Blood Ionized Calcium Ur Specific [place] Urine WBC (Auto) Vancomycin Trough Coronavirus (PCR) Positive A 12/13/20 12/13/20 12/13/20 11:30 12:01 18:04 WBC RBC Hgb Hct RDW Plt Count Lymph % (Auto) [place] % (Auto) Lymph # (Auto) [place] # (Auto) Baso # (Auto) Seg Neutrophils % Seg Neuts % (Manual) Lymphocytes % (Manual) Seg Neutrophils # Seg Neutrophils # Man Lymphocytes # (Manual) D-Dimer ABG pH POC ABG pCO2 POC ABG pO2 ABG pO2 ABG HCO3 ABG O2 Saturation ABG Base Excess ABG Hemoglobin ABG Oxyhemoglobin ABG Sodium ABG Potassium ABG Chloride ABG Glucose Oxyhemoglobin Carboxyhemoglobin Sodium 132 L Potassium Chloride 90.1 L Carbon Dioxide 41 H* D BUN Creatinine 0.2 L Glucose 249 H POC Glucose 224 H 172 H Hemoglobin A1c Lactic Acid Calcium 7.4 L Magnesium Ferritin Total Bilirubin AST ALT 61 H Alkaline Phosphatase Lactate Dehydrogenase Total Creatine Kinase C-Reactive Protein Total Protein 5.7 L Albumin 2.3 L Triglycerides Arterial Blood Glucose Arterial Blood Ionized Calcium Ur Specific [place] Urine WBC (Auto) Vancomycin Trough Coronavirus (PCR) 12/13/20 12/14/20 12/14/20 23:37 04:05 04:35 WBC RBC 3.37 L Hgb 10.1 L Hct 30.7 L RDW 15.4 H Plt Count Lymph % (Auto) [place] % (Auto) Lymph # (Auto) [place] # (Auto) Baso # (Auto) Seg Neutrophils % Seg Neuts % (Manual) 93.0 H Lymphocytes % (Manual) 3.0 L Seg Neutrophils # Seg Neutrophils # Man 7.8 H Lymphocytes # (Manual) 0.3 L D-Dimer ABG pH POC ABG pCO2 72.2 H POC ABG pO2 61.5 L ABG pO2 ABG HCO3 ABG O2 Saturation ABG Base Excess ABG Hemoglobin ABG Oxyhemoglobin 89.9 L ABG Sodium 131.4 L ABG Potassium ABG Chloride 91.0 L ABG Glucose 205 H Oxyhemoglobin Carboxyhemoglobin Sodium Potassium Chloride Carbon Dioxide BUN Creatinine Glucose POC Glucose 200 H Hemoglobin A1c Lactic Acid Calcium Magnesium Ferritin Total Bilirubin AST ALT Alkaline Phosphatase Lactate Dehydrogenase Total Creatine Kinase C-Reactive Protein Total Protein Albumin Triglycerides Arterial Blood Glucose 205 H Arterial Blood Ionized Calcium 4.3 L Ur Specific [place] Urine WBC (Auto) Vancomycin Trough Coronavirus (PCR) 12/14/20 12/14/20 12/14/20 04:35 05:12 11:31 WBC RBC Hgb Hct RDW Plt Count Lymph % (Auto) [place] % (Auto) Lymph # (Auto) [place] # (Auto) Baso # (Auto) Seg Neutrophils % Seg Neuts % (Manual) Lymphocytes % (Manual) Seg Neutrophils # Seg Neutrophils # Man Lymphocytes # (Manual) D-Dimer ABG pH POC ABG pCO2 POC ABG pO2 ABG pO2 ABG HCO3 ABG O2 Saturation ABG Base Excess ABG Hemoglobin ABG Oxyhemoglobin ABG Sodium ABG Potassium ABG Chloride ABG Glucose Oxyhemoglobin Carboxyhemoglobin Sodium 135 L Potassium Chloride 92.5 L Carbon Dioxide 38 H BUN Creatinine 0.2 L Glucose 184 H POC Glucose 176 H 212 H Hemoglobin A1c Lactic Acid Calcium 7.7 L Magnesium Ferritin Total Bilirubin AST ALT Alkaline Phosphatase Lactate Dehydrogenase Total Creatine Kinase C-Reactive Protein Total Protein Albumin Triglycerides Arterial Blood Glucose Arterial Blood Ionized Calcium Ur Specific [place] Urine WBC (Auto) Vancomycin Trough Coronavirus (PCR) 12/14/20 12/14/20 12/15/20 17:30 23:30 03:19 WBC RBC Hgb Hct RDW Plt Count Lymph % (Auto) [place] % (Auto) Lymph # (Auto) [place] # (Auto) Baso # (Auto) Seg Neutrophils % Seg Neuts % (Manual) Lymphocytes % (Manual) Seg Neutrophils # Seg Neutrophils # Man Lymphocytes # (Manual) D-Dimer ABG pH POC ABG pCO2 62.0 H POC ABG pO2 66.0 L ABG pO2 ABG HCO3 ABG O2 Saturation ABG Base Excess ABG Hemoglobin 10.3 L ABG Oxyhemoglobin ABG Sodium 130.5 L ABG Potassium ABG Chloride 91.0 L ABG Glucose 166 H Oxyhemoglobin Carboxyhemoglobin Sodium Potassium Chloride Carbon Dioxide BUN Creatinine Glucose POC Glucose 222 H 176 H Hemoglobin A1c Lactic Acid Calcium Magnesium Ferritin Total Bilirubin AST ALT Alkaline Phosphatase Lactate Dehydrogenase Total Creatine Kinase C-Reactive Protein Total Protein Albumin Triglycerides Arterial Blood Glucose 166 H Arterial Blood Ionized Calcium 4.4 L Ur Specific [place] Urine WBC (Auto) Vancomycin Trough Coronavirus (PCR) 12/15/20 12/15/20 12/15/20 05:24 11:39 17:30 WBC RBC Hgb Hct RDW Plt Count Lymph % (Auto) [place] % (Auto) Lymph # (Auto) [place] # (Auto) Baso # (Auto) Seg Neutrophils % Seg Neuts % (Manual) Lymphocytes % (Manual) Seg Neutrophils # Seg Neutrophils # Man Lymphocytes # (Manual) D-Dimer ABG pH POC ABG pCO2 POC ABG pO2 ABG pO2 ABG HCO3 ABG O2 Saturation ABG Base Excess ABG Hemoglobin ABG Oxyhemoglobin ABG Sodium ABG Potassium ABG Chloride ABG Glucose Oxyhemoglobin Carboxyhemoglobin Sodium Potassium Chloride Carbon Dioxide BUN Creatinine Glucose POC Glucose 160 H 140 H 246 H Hemoglobin A1c Lactic Acid Calcium Magnesium Ferritin Total Bilirubin AST ALT Alkaline Phosphatase Lactate Dehydrogenase Total Creatine Kinase C-Reactive Protein Total Protein Albumin Triglycerides Arterial Blood Glucose Arterial Blood Ionized Calcium Ur Specific [place] Urine WBC (Auto) Vancomycin Trough Coronavirus (PCR) 12/15/20 12/16/20 12/16/20 23:42 03:54 04:46 WBC RBC 3.48 L Hgb 10.6 L Hct 31.5 L RDW 15.8 H Plt Count Lymph % (Auto) [place] % (Auto) Lymph # (Auto) [place] # (Auto) Baso # (Auto) Seg Neutrophils % Seg Neuts % (Manual) Lymphocytes % (Manual) Seg Neutrophils # Seg Neutrophils # Man Lymphocytes # (Manual) D-Dimer ABG pH POC ABG pCO2 63.6 H POC ABG pO2 55.0 L ABG pO2 ABG HCO3 ABG O2 Saturation ABG Base Excess ABG Hemoglobin 11.1 L ABG Oxyhemoglobin 87.3 L ABG Sodium 130.7 L ABG Potassium ABG Chloride 89.0 L ABG Glucose 211 H Oxyhemoglobin Carboxyhemoglobin Sodium Potassium Chloride Carbon Dioxide BUN Creatinine Glucose POC Glucose 139 H Hemoglobin A1c Lactic Acid Calcium Magnesium Ferritin Total Bilirubin AST ALT Alkaline Phosphatase Lactate Dehydrogenase Total Creatine Kinase C-Reactive Protein Total Protein Albumin Triglycerides Arterial Blood Glucose 211 H Arterial Blood Ionized Calcium 4.3 L Ur Specific [place] Urine WBC (Auto) Vancomycin Trough Coronavirus (PCR) 12/16/20 12/16/20 12/16/20 04:46 05:34 11:40 WBC RBC Hgb Hct RDW Plt Count Lymph % (Auto) [place] % (Auto) Lymph # (Auto) [place] # (Auto) Baso # (Auto) Seg Neutrophils % Seg Neuts % (Manual) Lymphocytes % (Manual) Seg Neutrophils # Seg Neutrophils # Man Lymphocytes # (Manual) D-Dimer ABG pH POC ABG pCO2 POC ABG pO2 ABG pO2 ABG HCO3 ABG O2 Saturation ABG Base Excess ABG Hemoglobin ABG Oxyhemoglobin ABG Sodium ABG Potassium ABG Chloride ABG Glucose Oxyhemoglobin Carboxyhemoglobin Sodium 134 L Potassium Chloride 89.7 L Carbon Dioxide 38 H BUN Creatinine < 0.2 L Glucose 203 H POC Glucose 155 H 239 H Hemoglobin A1c Lactic Acid Calcium 7.5 L Magnesium Ferritin Total Bilirubin AST ALT Alkaline Phosphatase Lactate Dehydrogenase Total Creatine Kinase C-Reactive Protein Total Protein Albumin Triglycerides Arterial Blood Glucose Arterial Blood Ionized Calcium Ur Specific [place] Urine WBC (Auto) Vancomycin Trough Coronavirus (PCR) 12/16/20 12/16/20 12/17/20 17:42 23:45 03:59 WBC RBC Hgb Hct RDW Plt Count Lymph % (Auto) [place] % (Auto) Lymph # (Auto) [place] # (Auto) Baso # (Auto) Seg Neutrophils % Seg Neuts % (Manual) Lymphocytes % (Manual) Seg Neutrophils # Seg Neutrophils # Man Lymphocytes # (Manual) D-Dimer ABG pH POC ABG pCO2 71.9 H POC ABG pO2 57.5 L ABG pO2 ABG HCO3 ABG O2 Saturation ABG Base Excess ABG Hemoglobin 10.8 L ABG Oxyhemoglobin 87.7 L ABG Sodium 131.5 L ABG Potassium ABG Chloride 90.0 L ABG Glucose 199 H Oxyhemoglobin Carboxyhemoglobin Sodium Potassium Chloride Carbon Dioxide BUN Creatinine Glucose POC Glucose 228 H 187 H Hemoglobin A1c Lactic Acid Calcium Magnesium Ferritin Total Bilirubin AST ALT Alkaline Phosphatase Lactate Dehydrogenase Total Creatine Kinase C-Reactive Protein Total Protein Albumin Triglycerides Arterial Blood Glucose 199 H Arterial Blood Ionized Calcium 4.4 L Ur Specific [place] Urine WBC (Auto) Vancomycin Trough Coronavirus (PCR) 12/17/20 12/17/20 12/17/20 05:35 11:55 17:25 WBC RBC Hgb Hct RDW Plt Count Lymph % (Auto) [place] % (Auto) Lymph # (Auto) [place] # (Auto) Baso # (Auto) Seg Neutrophils % Seg Neuts % (Manual) Lymphocytes % (Manual) Seg Neutrophils # Seg Neutrophils # Man Lymphocytes # (Manual) D-Dimer ABG pH POC ABG pCO2 POC ABG pO2 ABG pO2 ABG HCO3 ABG O2 Saturation ABG Base Excess ABG Hemoglobin ABG Oxyhemoglobin ABG Sodium ABG Potassium ABG Chloride ABG Glucose Oxyhemoglobin Carboxyhemoglobin Sodium 134 L Potassium Chloride 89.6 L Carbon Dioxide 44 H* BUN Creatinine 0.2 L Glucose 280 H POC Glucose 159 H 181 H Hemoglobin A1c Lactic Acid Calcium 8.0 L Magnesium 1.60 L Ferritin Total Bilirubin AST ALT Alkaline Phosphatase Lactate Dehydrogenase Total Creatine Kinase C-Reactive Protein Total Protein 6.2 L Albumin 2.1 L Triglycerides Arterial Blood Glucose Arterial Blood Ionized Calcium Ur Specific [place] Urine WBC (Auto) Vancomycin Trough Coronavirus (PCR) 12/17/20 12/17/20 12/18/20 17:25 17:51 00:12 WBC RBC Hgb Hct RDW Plt Count Lymph % (Auto) [place] % (Auto) Lymph # (Auto) [place] # (Auto) Baso # (Auto) Seg Neutrophils % Seg Neuts % (Manual) Lymphocytes % (Manual) Seg Neutrophils # Seg Neutrophils # Man Lymphocytes # (Manual) D-Dimer ABG pH POC ABG pCO2 POC ABG pO2 ABG pO2 ABG HCO3 ABG O2 Saturation ABG Base Excess ABG Hemoglobin ABG Oxyhemoglobin ABG Sodium ABG Potassium ABG Chloride ABG Glucose Oxyhemoglobin Carboxyhemoglobin Sodium Potassium Chloride Carbon Dioxide BUN Creatinine Glucose POC Glucose 260 H 197 H Hemoglobin A1c Lactic Acid Calcium Magnesium Ferritin Total Bilirubin AST ALT Alkaline Phosphatase Lactate Dehydrogenase Total Creatine Kinase 47 L C-Reactive Protein Total Protein Albumin Triglycerides Arterial Blood Glucose Arterial Blood Ionized Calcium Ur Specific [place] Urine WBC (Auto) Vancomycin Trough Coronavirus (PCR) 12/18/20 12/18/20 12/18/20 03:56 04:32 04:32 WBC RBC 2.88 L Hgb 8.6 L Hct 26.0 L RDW 15.6 H Plt Count Lymph % (Auto) [place] % (Auto) Lymph # (Auto) [place] # (Auto) Baso # (Auto) Seg Neutrophils % Seg Neuts % (Manual) Lymphocytes % (Manual) Seg Neutrophils # Seg Neutrophils # Man Lymphocytes # (Manual) D-Dimer ABG pH POC ABG pCO2 78.0 H POC ABG pO2 52.3 L ABG pO2 ABG HCO3 ABG O2 Saturation ABG Base Excess ABG Hemoglobin 11.7 L ABG Oxyhemoglobin 84.9 L ABG Sodium 131.6 L ABG Potassium ABG Chloride 89.0 L ABG Glucose 191 H Oxyhemoglobin Carboxyhemoglobin Sodium 134 L Potassium Chloride 89.5 L Carbon Dioxide 43 H* BUN Creatinine < 0.2 L Glucose 182 H POC Glucose Hemoglobin A1c Lactic Acid Calcium 8.1 L Magnesium Ferritin Total Bilirubin AST ALT Alkaline Phosphatase Lactate Dehydrogenase Total Creatine Kinase C-Reactive Protein Total Protein Albumin Triglycerides Arterial Blood Glucose 191 H Arterial Blood Ionized Calcium 4.4 L Ur Specific [place] Urine WBC (Auto) Vancomycin Trough Coronavirus (PCR) 12/18/20 12/18/20 12/18/20 05:19 08:27 11:37 WBC RBC Hgb Hct RDW Plt Count Lymph % (Auto) [place] % (Auto) Lymph # (Auto) [place] # (Auto) Baso # (Auto) Seg Neutrophils % Seg Neuts % (Manual) Lymphocytes % (Manual) Seg Neutrophils # Seg Neutrophils # Man Lymphocytes # (Manual) D-Dimer ABG pH POC ABG pCO2 POC ABG pO2 ABG pO2 ABG HCO3 ABG O2 Saturation ABG Base Excess ABG Hemoglobin ABG Oxyhemoglobin ABG Sodium ABG Potassium ABG Chloride ABG Glucose Oxyhemoglobin Carboxyhemoglobin Sodium 131 L Potassium Chloride 89.0 L Carbon Dioxide 41 H* BUN Creatinine < 0.2 L Glucose 176 H POC Glucose 165 H 174 H Hemoglobin A1c Lactic Acid Calcium 7.5 L Magnesium Ferritin Total Bilirubin AST ALT Alkaline Phosphatase Lactate Dehydrogenase Total Creatine Kinase C-Reactive Protein Total Protein Albumin Triglycerides Arterial Blood Glucose Arterial Blood Ionized Calcium Ur Specific [place] Urine WBC (Auto) Vancomycin Trough Coronavirus (PCR) 12/18/20 12/18/20 12/19/20 17:26 23:19 03:41 WBC RBC Hgb Hct RDW Plt Count Lymph % (Auto) [place] % (Auto) Lymph # (Auto) [place] # (Auto) Baso # (Auto) Seg Neutrophils % Seg Neuts % (Manual) Lymphocytes % (Manual) Seg Neutrophils # Seg Neutrophils # Man Lymphocytes # (Manual) D-Dimer ABG pH POC ABG pCO2 75.4 H POC ABG pO2 50.7 L ABG pO2 ABG HCO3 ABG O2 Saturation ABG Base Excess ABG Hemoglobin 10.4 L ABG Oxyhemoglobin 84.2 L ABG Sodium 131.1 L ABG Potassium ABG Chloride 89.0 L ABG Glucose 194 H Oxyhemoglobin Carboxyhemoglobin 1.6 H Sodium Potassium Chloride Carbon Dioxide BUN Creatinine Glucose POC Glucose 243 H 212 H Hemoglobin A1c Lactic Acid Calcium Magnesium Ferritin Total Bilirubin AST ALT Alkaline Phosphatase Lactate Dehydrogenase Total Creatine Kinase C-Reactive Protein Total Protein Albumin Triglycerides Arterial Blood Glucose 194 H Arterial Blood Ionized Calcium 4.3 L Ur Specific [place] Urine WBC (Auto) Vancomycin Trough Coronavirus (PCR) 12/19/20 12/19/20 12/19/20 05:26 11:56 18:17 WBC RBC Hgb Hct RDW Plt Count Lymph % (Auto) [place] % (Auto) Lymph # (Auto) [place] # (Auto) Baso # (Auto) Seg Neutrophils % Seg Neuts % (Manual) Lymphocytes % (Manual) Seg Neutrophils # Seg Neutrophils # Man Lymphocytes # (Manual) D-Dimer ABG pH POC ABG pCO2 POC ABG pO2 ABG pO2 ABG HCO3 ABG O2 Saturation ABG Base Excess ABG Hemoglobin ABG Oxyhemoglobin ABG Sodium ABG Potassium ABG Chloride ABG Glucose Oxyhemoglobin Carboxyhemoglobin Sodium Potassium Chloride Carbon Dioxide BUN Creatinine Glucose POC Glucose 166 H 173 H 212 H Hemoglobin A1c Lactic Acid Calcium Magnesium Ferritin Total Bilirubin AST ALT Alkaline Phosphatase Lactate Dehydrogenase Total Creatine Kinase C-Reactive Protein Total Protein Albumin Triglycerides Arterial Blood Glucose Arterial Blood Ionized Calcium Ur Specific [place] Urine WBC (Auto) Vancomycin Trough Coronavirus (PCR) 12/19/20 12/19/20 12/20/20 23:39 Unknown 03:26 WBC RBC Hgb Hct RDW Plt Count Lymph % (Auto) [place] % (Auto) Lymph # (Auto) [place] # (Auto) Baso # (Auto) Seg Neutrophils % Seg Neuts % (Manual) Lymphocytes % (Manual) Seg Neutrophils # Seg Neutrophils # Man Lymphocytes # (Manual) D-Dimer ABG pH POC ABG pCO2 74.2 H POC ABG pO2 51.3 L ABG pO2 ABG HCO3 ABG O2 Saturation ABG Base Excess ABG Hemoglobin 10.0 L ABG Oxyhemoglobin ABG Sodium 128.9 L ABG Potassium ABG Chloride 87.0 L ABG Glucose 173 H Oxyhemoglobin Carboxyhemoglobin Sodium 133 L Potassium Chloride 89.9 L Carbon Dioxide 39 H BUN Creatinine 0.2 L Glucose 197 H POC Glucose 133 H Hemoglobin A1c Lactic Acid Calcium 7.6 L Magnesium Ferritin Total Bilirubin AST ALT Alkaline Phosphatase Lactate Dehydrogenase Total Creatine Kinase C-Reactive Protein Total Protein Albumin Triglycerides Arterial Blood Glucose 173 H Arterial Blood Ionized Calcium 4.1 L Ur Specific [place] Urine WBC (Auto) Vancomycin Trough Coronavirus (PCR) 12/20/20 12/20/20 12/20/20 04:00 04:00 05:05 WBC RBC 3.21 L Hgb 9.6 L Hct 29.2 L RDW 15.8 H Plt Count Lymph % (Auto) [place] % (Auto) Lymph # (Auto) [place] # (Auto) Baso # (Auto) Seg Neutrophils % Seg Neuts % (Manual) Lymphocytes % (Manual) Seg Neutrophils # Seg Neutrophils # Man Lymphocytes # (Manual) D-Dimer ABG pH POC ABG pCO2 POC ABG pO2 ABG pO2 ABG HCO3 ABG O2 Saturation ABG Base Excess ABG Hemoglobin ABG Oxyhemoglobin ABG Sodium ABG Potassium ABG Chloride ABG Glucose Oxyhemoglobin Carboxyhemoglobin Sodium 132 L Potassium Chloride 86.0 L Carbon Dioxide 43 H* BUN Creatinine 0.2 L Glucose 193 H POC Glucose 171 H Hemoglobin A1c Lactic Acid Calcium 7.6 L Magnesium Ferritin Total Bilirubin AST ALT Alkaline Phosphatase Lactate Dehydrogenase Total Creatine Kinase C-Reactive Protein Total Protein Albumin Triglycerides Arterial Blood Glucose Arterial Blood Ionized Calcium Ur Specific [place] Urine WBC (Auto) Vancomycin Trough Coronavirus (PCR) 12/20/20 12/20/20 12/20/20 11:47 18:18 23:41 WBC RBC Hgb Hct RDW Plt Count Lymph % (Auto) [place] % (Auto) Lymph # (Auto) [place] # (Auto) Baso # (Auto) Seg Neutrophils % Seg Neuts % (Manual) Lymphocytes % (Manual) Seg Neutrophils # Seg Neutrophils # Man Lymphocytes # (Manual) D-Dimer ABG pH POC ABG pCO2 POC ABG pO2 ABG pO2 ABG HCO3 ABG O2 Saturation ABG Base Excess ABG Hemoglobin ABG Oxyhemoglobin ABG Sodium ABG Potassium ABG Chloride ABG Glucose Oxyhemoglobin Carboxyhemoglobin Sodium Potassium Chloride Carbon Dioxide BUN Creatinine Glucose POC Glucose 238 H 205 H 167 H Hemoglobin A1c Lactic Acid Calcium Magnesium Ferritin Total Bilirubin AST ALT Alkaline Phosphatase Lactate Dehydrogenase Total Creatine Kinase C-Reactive Protein Total Protein Albumin Triglycerides Arterial Blood Glucose Arterial Blood Ionized Calcium Ur Specific [place] Urine WBC (Auto) Vancomycin Trough Coronavirus (PCR) 12/21/20 12/21/20 12/21/20 03:30 05:37 09:57 WBC RBC Hgb Hct RDW Plt Count Lymph % (Auto) [place] % (Auto) Lymph # (Auto) [place] # (Auto) Baso # (Auto) Seg Neutrophils % Seg Neuts % (Manual) Lymphocytes % (Manual) Seg Neutrophils # Seg Neutrophils # Man Lymphocytes # (Manual) D-Dimer ABG pH POC ABG pCO2 73.4 H POC ABG pO2 63.0 L ABG pO2 ABG HCO3 ABG O2 Saturation ABG Base Excess ABG Hemoglobin 10.1 L ABG Oxyhemoglobin ABG Sodium 130.5 L ABG Potassium ABG Chloride 89.0 L ABG Glucose 171 H Oxyhemoglobin Carboxyhemoglobin Sodium 132 L Potassium Chloride 87.7 L Carbon Dioxide 42 H* BUN Creatinine 0.2 L Glucose 207 H POC Glucose 152 H Hemoglobin A1c Lactic Acid Calcium 7.7 L Magnesium Ferritin Total Bilirubin AST ALT Alkaline Phosphatase Lactate Dehydrogenase Total Creatine Kinase C-Reactive Protein Total Protein Albumin Triglycerides Arterial Blood Glucose 171 H Arterial Blood Ionized Calcium 4.2 L Ur Specific [place] Urine WBC (Auto) Vancomycin Trough Coronavirus (PCR) 12/21/20 12/21/20 12/21/20 12:54 18:00 Unknown WBC RBC Hgb Hct RDW Plt Count Lymph % (Auto) [place] % (Auto) Lymph # (Auto) [place] # (Auto) Baso # (Auto) Seg Neutrophils % Seg Neuts % (Manual) Lymphocytes % (Manual) Seg Neutrophils # Seg Neutrophils # Man Lymphocytes # (Manual) D-Dimer ABG pH POC ABG pCO2 POC ABG pO2 ABG pO2 ABG HCO3 ABG O2 Saturation ABG Base Excess ABG Hemoglobin ABG Oxyhemoglobin ABG Sodium ABG Potassium ABG Chloride ABG Glucose Oxyhemoglobin Carboxyhemoglobin Sodium Potassium Chloride Carbon Dioxide BUN Creatinine Glucose POC Glucose 199 H 217 H Hemoglobin A1c Lactic Acid Calcium Magnesium Ferritin Total Bilirubin AST ALT Alkaline Phosphatase Lactate Dehydrogenase Total Creatine Kinase C-Reactive Protein Total Protein Albumin Triglycerides Arterial Blood Glucose Arterial Blood Ionized Calcium Ur Specific [place] Urine WBC (Auto) 172.0 H Vancomycin Trough Coronavirus (PCR) 12/22/20 12/22/20 12/22/20 00:02 04:08 05:19 WBC RBC Hgb Hct RDW Plt Count Lymph % (Auto) [place] % (Auto) Lymph # (Auto) [place] # (Auto) Baso # (Auto) Seg Neutrophils % Seg Neuts % (Manual) Lymphocytes % (Manual) Seg Neutrophils # Seg Neutrophils # Man Lymphocytes # (Manual) D-Dimer ABG pH POC ABG pCO2 67.6 H POC ABG pO2 57.3 L ABG pO2 ABG HCO3 ABG O2 Saturation ABG Base Excess ABG Hemoglobin ABG Oxyhemoglobin ABG Sodium 130.9 L ABG Potassium ABG Chloride 92.0 L ABG Glucose 163 H Oxyhemoglobin Carboxyhemoglobin Sodium Potassium Chloride Carbon Dioxide BUN Creatinine Glucose POC Glucose 172 H 151 H Hemoglobin A1c Lactic Acid Calcium Magnesium Ferritin Total Bilirubin AST ALT Alkaline Phosphatase Lactate Dehydrogenase Total Creatine Kinase C-Reactive Protein Total Protein Albumin Triglycerides Arterial Blood Glucose 163 H Arterial Blood Ionized Calcium 4.2 L Ur Specific [place] Urine WBC (Auto) Vancomycin Trough Coronavirus (PCR) 12/22/20 12/22/20 12/22/20 11:33 17:20 23:25 WBC RBC Hgb Hct RDW Plt Count Lymph % (Auto) [place] % (Auto) Lymph # (Auto) [place] # (Auto) Baso # (Auto) Seg Neutrophils % Seg Neuts % (Manual) Lymphocytes % (Manual) Seg Neutrophils # Seg Neutrophils # Man Lymphocytes # (Manual) D-Dimer ABG pH POC ABG pCO2 POC ABG pO2 ABG pO2 ABG HCO3 ABG O2 Saturation ABG Base Excess ABG Hemoglobin ABG Oxyhemoglobin ABG Sodium ABG Potassium ABG Chloride ABG Glucose Oxyhemoglobin Carboxyhemoglobin Sodium Potassium Chloride Carbon Dioxide BUN Creatinine Glucose POC Glucose 181 H 166 H 121 H Hemoglobin A1c Lactic Acid Calcium Magnesium Ferritin Total Bilirubin AST ALT Alkaline Phosphatase Lactate Dehydrogenase Total Creatine Kinase C-Reactive Protein Total Protein Albumin Triglycerides Arterial Blood Glucose Arterial Blood Ionized Calcium Ur Specific [place] Urine WBC (Auto) Vancomycin Trough Coronavirus (PCR) 12/23/20 12/23/20 05:19 06:07 WBC RBC Hgb Hct RDW Plt Count Lymph % (Auto) [place] % (Auto) Lymph # (Auto) [place] # (Auto) Baso # (Auto) Seg Neutrophils % Seg Neuts % (Manual) Lymphocytes % (Manual) Seg Neutrophils # Seg Neutrophils # Man Lymphocytes # (Manual) D-Dimer ABG pH POC ABG pCO2 67.7 H POC ABG pO2 53.7 L ABG pO2 ABG HCO3 ABG O2 Saturation ABG Base Excess ABG Hemoglobin 9.6 L ABG Oxyhemoglobin ABG Sodium 130.2 L ABG Potassium ABG Chloride 88.0 L ABG Glucose 195 H Oxyhemoglobin Carboxyhemoglobin Sodium 135 L Potassium Chloride 89.3 L Carbon Dioxide 43 H* BUN Creatinine 0.2 L Glucose 193 H POC Glucose Hemoglobin A1c Lactic Acid Calcium 7.4 L Magnesium Ferritin Total Bilirubin AST ALT Alkaline Phosphatase Lactate Dehydrogenase Total Creatine Kinase C-Reactive Protein Total Protein Albumin Triglycerides Arterial Blood Glucose 195 H Arterial Blood Ionized Calcium 4.1 L Ur Specific [place] Urine WBC (Auto) Vancomycin Trough Coronavirus (PCR)
--- NOTE | 2020-12-23 12:34 | Progress Note ---
Assessment and Plan Cultures: SARS CoV-2 PCR: positive Blood culture: No growth 11/21/2020 tracheal aspirate culture: MRSA 12/09/2020 blood culture: no growth 12/09/2020 sputum culture: Klebsiella 12/17/2020 blood culture: 1 bottle with coag negative staph, second bottle with Enterococcus faecalis 12/17/2020 tracheal aspirate culture: Usual respiratory zachariah 12/21/2020 blood culture: No growth A/P: 59-year-old male with: #Shock: on pressors. Febrile, restarted abx on 12/17/2020. #GPC bacteremia: source unclear. Typically, Enterococcus is not considered a contaminant, however only present in 1 out of 4 bottles while another set is growing coag negative staph. #Bilateral pneumonia: secondary to COVID-19. Completed abx, remdesivir. #Klebsiella on ET aspirate culture: ?colonization v/s true disease, difficult to differentiate. Will treat given development of low-grade temperatures and white count. #B/L pneumothorax and pneumomediastinum: s/p chest tubes. #Acute hypoxic respiratory failure: Remains on the vent. #Elevated d-dimer: DVT scan negative. Was unable to get CTA Chest due to patients unstable clinical status #Transaminitis: secondary to COVID-19. Recs: -repeat blood cultures are negative, would complete 14 days of ampicillin ending 01/04/2021 -very poor prognosis, consider DNR status Dayday Driscoll MD, FACP [facility] ([facility] O: [phone] F: [phone] Subjective Date of service: 12/23/20 Principal diagnosis: COVID-19 Interval history: Afebrile. Remains in the vent, high requirements. Sedated. Remains on pressors. Objective - Exam Narrative Exam: Physical Exam (reviewed in chart to minimize risk of transmission) Constitutional: deferred Head, Ears, Nose: deferred Eyes: deferred Neck: deferred Oral: deferred Cardiovascular: deferred Respiratory: deferred GI: deferred Musculoskeletal: deferred Skin: deferred Hem/Lymphatic: deferred Psych: deferred Neurological: deferred - Constitutional Vitals: Vital Signs Temp Pulse Resp BP Pulse Ox 98.4 F 79 30 H 104/59 94 12/23/20 08:00 12/23/20 10:30 12/23/20 10:30 12/23/20 10:30 12/23/20 10:30 Temperature -Last 24 Hours Temperature 98.4 F Temperature 99.9 F Temperature 99.1 F Temperature 99.2 F Temperature 99.4 F - Labs CBC & Chem 7: 12/20/20 04:00 12/23/20 06:07 Labs: Abnormal lab results 12/22/20 12/22/20 12/22/20 Range/Units 11:33 17:20 23:25 POC ABG pCO2 (32.0-48.0) mmHg POC ABG pO2 (83-108) mmHg ABG Hemoglobin (12.0-17.5) ABG Sodium (136.0-145.0) mmol/L ABG Chloride (98-107) mmol/L ABG Glucose (65-95) mg/dL Sodium (137-145) mmol/L Chloride (98-107) mmol/L Carbon Dioxide (22-30) mmol/L Creatinine (0.8-1.3) mg/dL Glucose (75-100) mg/dL POC Glucose 181 H 166 H 121 H (70-105) mg/dL Calcium (8.4-10.2) mg/dL Arterial Blood Glucose (65-95) mg/dL Arterial Blood Ionized Calcium (4.6-5.3) mg/dL 12/23/20 12/23/20 12/23/20 Range/Units 05:19 05:32 06:07 POC ABG pCO2 67.7 H (32.0-48.0) mmHg POC ABG pO2 53.7 L (83-108) mmHg ABG Hemoglobin 9.6 L (12.0-17.5) ABG Sodium 130.2 L (136.0-145.0) mmol/L ABG Chloride 88.0 L (98-107) mmol/L ABG Glucose 195 H (65-95) mg/dL Sodium 135 L (137-145) mmol/L Chloride 89.3 L (98-107) mmol/L Carbon Dioxide 43 H* (22-30) mmol/L Creatinine 0.2 L (0.8-1.3) mg/dL Glucose 193 H (75-100) mg/dL POC Glucose 167 H (70-105) mg/dL Calcium 7.4 L (8.4-10.2) mg/dL Arterial Blood Glucose 195 H (65-95) mg/dL Arterial Blood Ionized Calcium 4.1 L (4.6-5.3) mg/dL 12/23/20 Range/Units 11:21 POC ABG pCO2 (32.0-48.0) mmHg POC ABG pO2 (83-108) mmHg ABG Hemoglobin (12.0-17.5) ABG Sodium (136.0-145.0) mmol/L ABG Chloride (98-107) mmol/L ABG Glucose (65-95) mg/dL Sodium (137-145) mmol/L Chloride (98-107) mmol/L Carbon Dioxide (22-30) mmol/L Creatinine (0.8-1.3) mg/dL Glucose (75-100) mg/dL POC Glucose 155 H (70-105) mg/dL Calcium (8.4-10.2) mg/dL Arterial Blood Glucose (65-95) mg/dL Arterial Blood Ionized Calcium (4.6-5.3) mg/dL
--- NOTE | 2020-12-23 14:23 | Progress Note ---
<LINHRanjeetLISSETHRigo - Last Filed: 12/23/20 14:19> Assessment and Plan Assessment and plan: -Antibiotic deescalated to ampicillin as blood cultures grew Enterococcus in 1/4 bottles and the other set grew coag negative staph which will be continued for 14 days per ID -Repeat blood cultures with no growth -Wean mechanical ventilation for SPO2 greater than 88% and PaO2 greater than 55 mmHg on ABG -Wean mechanical ventilation as tolerated, VAP bundle, CXR/ABG -Bilateral chest tubes to wall suction -Trend BMP -SSI, long-acting insulin DVT/GI prophylaxis: SCDs to bilateral lower limbs while in bed, Lovenox subcu, PPI Disposition: ICU The high probability of a clinically significant, sudden or life threatening deterioration of the [respiratory, cardiology] system(s) required my full and direct attention, intervention and personal management. The aggregate critical care time was [35] minutes. This time is in addition to time spent performing reported procedures but includes the following: [x] Data Review and interpretation [x] Patient assessment and monitoring of vital signs [x] Documentation [x] Medication orders and management History Interval history: 59-year-old female who is smoker who presented to [facility] with shortness of breath cough fever weakness for 1 to 2 days prior to arrival. Per EMS the patient was severely hypoxic with saturations in the low 80s. With all oxygen and nonrebreather came down to low 90s. ID, pulmonary, CCM were consulted. Septic Shock Coag Negative staph/Entrococcus bactermia MRSA/Klebsiella in sputum COVID-19 pneumonia Acute hypoxic hypercapnic respiratory failure Bilateral pneumothorax Pneumomediastinum with subcutaneous emphysema Elevated D-dimer Transaminitis secondary to Covid 19 Klebsiella pneumonia Type 2 diabetes mellitus Severe protien calorie malnutrition secondary to critical illness Hyponatremia Hypochloremia Metabolic alkalosis Hypercapnia Hypoxemia 2/: Patient continues on BiPAP throughout the night. Labs are remarkable for hypoxia with improving renal function but lactic acidosis without fever. CTA has been ordered to rule out pulmonary embolism. I agree with increasing enoxaparin to twice daily full dose for empiric treatment of pulmonary embolism. Will obtain ID consultation on further evaluation for possible underlying pneumonia versus COVID-19. We will also obtain echocardiogram for evaluation. Will discontinue fluids at this time. 2/2; Continue supportive care, Patient remains with very guarded prognosis, remains on BiPAP, continues on Remdesivir, and steroids. Will continue anticoagulation, unable to get CTA Chest due to patients unstable clinical status. Will adjust insulin for better blood glucose 2/3: Continues on BIPAP, no clear improvement at this time. Will continue steroids therapy Remdesivir and also Full anticoagulation at this time. Will update family. Discussed with Opal Miner. 11/19: Taking a break from the BiPAP on high flow and nonrebreather 100% with saturation of 90% becomes hypoxic with any movement. Opal Miner input noted will get a dose of Lasix today. Will await a discussion with ID for possibly increasing steroid. I updated Patient's Cousin, Tayla Esquivel who is the emergency hotel supplies salesperson. Blood sugar remains fluctuating secondary to steriods, Encouraged Prone positioning. Noted with mild hyponatremia we will continue to monitor and manage 2/: Continue supportive care wean oxygen as tolerated prognosis remains guarded. Encouraged to progress as tolerated. Awaiting labs today. Discussed with nursing staff and patient at bedside. 2: Discontinued Dexamethasone as Solumedrol started secondary to increased oxygen demand. Will give additional insulin for better control. Continue oxygen support patient still on high flow. Prognosis still guarded 11/22: Patient was intubated and placed on mechanical ventilation. Continue current medication. Will check a.m. labs today. Noted still with hypotension. Doubt septic shock at this time as patient has no new fever. Will adjust insulin for better blood sugar control. 11/23: Patient admitted with COVID-19 despite all efforts patient remains severely hypoxic and now is intubated. Opal Miner input noted. Blood pressure marginal at this time. Very poor prognosis. Continue Solu-Medrol. 11/24. Patient remains very hypoxic. Blood pressure borderline. Plan for initiation of paralytic agents as per mica inspector. Patient may need to be transferred if no improvement. 11/26. Off paralytics. Remains intubated. On steroids. Prognosis is poor. 11/27. Chest xray shows pneumomediastinum and subcutaneous emphysema. Surgery consulted. Plan for chest tube placement. Sputum culture grew MRSA. Patient started on vancomycin per ID. 11/28. Right chest tube placed yesterday by surgery. Repeat chest x-ray showed left small pneumothorax. Plan for chest tube placement on the left today. Remains on paralytic agents. 11/29. Remains intubated on vent. Had left chest tube placed yesterday. Vitals reviewed. Critical care following 11/30/ Remains on mechanical ventilation. Worsening hypoxia. Bilateral chest tubes in place. Vitals reviewed. Labs reviewed 12/01: Chest tube and mechanical ventilation remains in place, poor prognosis, FIO2 remains at 90%, adjust insulin for better blood glucose control 12/02: Patient remains on full ventilatory support and steroids, still with worsening leukocytosis ?inflammatory or infectious vs steroids. Continue vancomycin. 12/03; slowly weaning, 12/04: Still on the vent FiO2 down to 65% PEEP remains at 18. Still with poor prognosis. 12/05: Patient continues on full ventilatory support per mica inspector PEEP remains at 18. Still with hypercapnic respiratory failure. FiO2 down to 60% this morning. Chest tube to suction still weaning off steroids in the deliberation ongoing for possible a third chest tube as last documentation by surgery shows no plan for it at this time. Continue to manage insulin for better blood sugar control. 12/06:weaned down to 60%, continue supportive care, unable to wean, 12/07; patient remains intubated on ventilatory support, chest tubes in place trach and PEG when patient's Covid test is negative,Per surgery. 12/08; Patient remains intubated remains with hypercapnia and hypoxia. Chest tube still remain in place. He is off antibiotics at this time. Continue steroids which is likely resultant to the leukocytosis. Opal Miner and surgeon following ID input is noted. Prognosis remains guarded to poor 12/10; patient remains intubated on vent, unable to wean awaiting trach and PEG when Covid test is negative, Continue current management 12/11; patient awaiting trach and PEG when Covid test is negative, vent dependent, poor prognosis 12/12; clinically no change, vent dependent, Patient is critically ill with very poor prognosis, awaiting trach and PEG when COVID-19 test turns negative. Plan discussed with nursing staff. Caregivers have discussed with patient's family periodically 12/13: Patient is critically ill with very poor prognosis, awaiting trach and PEG when COVID-19 test turns negative. Plan discussed with nursing staff. Caregivers have discussed with patient's family periodically 12/14: Increase UOP which we will monitor and replete as needed. Patient remain hypoxemic on ABG despite 100 FiO2, remains on fentanyl, precedex, versed and levo gtt. 3: Patient remains sedated on fentanyl at 3 mcg, Versed at 30 mg, dexamethasone 0.3 and was on Levophed 6 mcg this morning. Patient's vent settings rate of 30, tidal volume 425, PEEP of 18, FiO2 of 85. RT attempted to wean as tolerated. No acute events reported overnight. Bilateral chest tubes to wall suction. 12/16: Overnight the patient was noted to be bradycardic, Precedex drip was increased to 0.6/fentanyl to 4 mcg/Versed 5 mg, bilateral chest tube to suction. Current vent settings for 425/30/18/0.75, RT to wean as tolerated 12/17: Patient's T-max overnight was 101.2, obtain CXR today, blood culture x2 per ID. Patient remains on fentanyl, Versed, Precedex and Levophed. Current vent settings AC 425/30/18/0.75, RT to wean as tolerated. Continue steroid taper. 12/18: Patient remains sedated on fentanyl, Versed, Precedex and has vasopressor support of Levophed, current vent settings 425/30/18/0.75 with bilateral chest tubes to wall suction. Patient's blood culture from 12/17 grew gram-positive cocci in pairs and chains however the patient is on vancomycin and cefepime. We will continue to follow for speciation and sensitivity. 12/19: Unfortunately remains on full ventilatory support prognosis remains very poor. No new fever however since 12/17. Continue to follow cultures not finalized yet. Antibiotics per ID critical care management input noted. Patient remains on high FiO2 and PEEP at this time. 12/20: Still with intermittent fever, likely secondary to covid 19, still with hyponatremia, continue with tube feed. cultures with coagulas negative staph, await further ID input. Continues on abx. 12/21: Patient remains on fentanyl, Precedex, Versed and Levophed and assist control for 25//18/.100 with bilateral chest tubes in place. Patient remains on antibiotic therapy. No acute events reported overnight. 12/22: Patient remains sedated on Precedex and fentanyl and on vasopressor supp ort, blood cultures grew coag negative Staphylococcus and Enterococcus and antibiotic therapy was deescalated to ampicillin by infectious disease. This morning patient was on assist control for 25/30/18/0.100 and respiratory therapy to decrease FiO2 as tolerated. 12/23: Patient remains sedated on Versed, fentanyl, propofol, dexamethasone and vasopressor support with Levophed. Patient is on ampicillin with a T-max of 99 and current vent settings assist-control //18/0.90 which is being weaned as tolerated by RT. Patient bowel regimen escalated. Hospitalist Physical - Constitutional Vitals: Temp Pulse Resp BP Pulse Ox 98.2 F 92 H 24 123/63 89 12/23/20 12:00 12/23/20 13:00 12/23/20 13:00 12/23/20 13:00 12/23/20 13:00 General appearance: Present: no acute distress, well-nourished, other (Vent dependent) - EENT Eyes: Present: EOM intact ENT: clear oral mucosa - Neck Neck: Present: normal ROM - Respiratory Respiratory effort: normal Respiratory: bilateral: diminished - Cardiovascular Rhythm: regular Heart Sounds: Present: S1 & S2. Absent: systolic murmur, diastolic murmur - Extremities Extremities: no ischemia, pulses intact, pulses symmetrical, No edema, normal temperature, normal color, Full ROM Peripheral Pulses: within normal limits - Abdominal General gastrointestinal: soft, non-tender, non-distended, normal bowel sounds - Integumentary Integumentary: Present: warm, dry - Psychiatric Psychiatric: other (sedated) - Neurologic Neurologic: other (sedated) HEART Score - HEART Score Troponin: Troponin T < 0.010 ng/mL (0.00-0.029) 12/11/20 06:30 Results - Labs CBC & Chem 7: 12/20/20 04:00 12/23/20 06:07 Labs: Laboratory Last Values WBC 9.4 K/mm3 (4.5-11.0) 12/20/20 04:00 RBC 3.21 M/mm3 (3.65-5.03) L 12/20/20 04:00 Hgb 9.6 gm/dl (11.8-15.2) L 12/20/20 04:00 Hct 29.2 % (35.5-45.6) L 12/20/20 04:00 MCV 91 fl (84-94) 12/20/20 04:00 MCH 30 pg (28-32) 12/20/20 04:00 MCHC 33 % (32-34) 12/20/20 04:00 RDW 15.8 % (13.2-15.2) H 12/20/20 04:00 Plt Count 309 K/mm3 (140-440) 12/20/20 04:00 Lymph % (Auto) 2.0 % (13.4-35.0) L 11/27/20 06:25 [place] % (Auto) 5.2 % (0.0-7.3) 11/27/20 06:25 Eos % (Auto) 0.0 % (0.0-4.3) 11/27/20 06:25 Baso % (Auto) 0.1 % (0.0-1.8) 11/27/20 06:25 Lymph # (Auto) 0.3 K/mm3 (1.2-5.4) L 11/27/20 06:25 [place] # (Auto) 0.7 K/mm3 (0.0-0.8) 11/27/20 06:25 Eos # (Auto) 0.0 K/mm3 (0.0-0.4) 11/27/20 06:25 Baso # (Auto) 0.0 K/mm3 (0.0-0.1) 11/27/20 06:25 Add Manual Diff Complete 12/14/20 04:35 Total Counted 100 12/14/20 04:35 Seg Neutrophils % Rn Advanced 12/14/20 04:35 Seg Neuts % (Manual) 93.0 % (40.0-70.0) H 12/14/20 04:35 Band Neutrophils % 2.0 % 12/13/20 11:30 Lymphocytes % (Manual) 3.0 % (13.4-35.0) L 12/14/20 04:35 Monocytes % (Manual) 4.0 % (0.0-7.3) 12/14/20 04:35 Nucleated RBC % Not Reportable 12/14/20 04:35 Seg Neutrophils # 12.7 K/mm3 (1.8-7.7) H 11/27/20 06:25 Seg Neutrophils # Man 7.8 K/mm3 (1.8-7.7) H 12/14/20 04:35 Band Neutrophils # 0.0 K/mm3 12/14/20 04:35 Lymphocytes # (Manual) 0.3 K/mm3 (1.2-5.4) L 12/14/20 04:35 Abs React Lymphs (Man) 0.0 K/mm3 12/14/20 04:35 Monocytes # (Manual) 0.3 K/mm3 (0.0-0.8) 12/14/20 04:35 Eosinophils # (Manual) 0.0 K/mm3 (0.0-0.4) 12/14/20 04:35 Basophils # (Manual) 0.0 K/mm3 (0.0-0.1) 12/14/20 04:35 Metamyelocytes # 0.0 K/mm3 12/14/20 04:35 Myelocytes # 0.0 K/mm3 12/14/20 04:35 Promyelocytes # 0.0 K/mm3 12/14/20 04:35 Blast Cells # 0.0 K/mm3 12/14/20 04:35 WBC Morphology Not Reportable 12/14/20 04:35 Hypersegmented Neuts Not Reportable 12/14/20 04:35 Hyposegmented Neuts Not Reportable 12/14/20 04:35 Hypogranular Neuts Not Reportable 12/14/20 04:35 Smudge Cells Not Reportable 12/14/20 04:35 Toxic Granulation Not Reportable 12/14/20 04:35 Toxic Vacuolation Not Reportable 12/14/20 04:35 Dohle Bodies Not Reportable 12/14/20 04:35 Pelger-Huet Anomaly Not Reportable 12/14/20 04:35 Tony Rods Not Reportable 12/14/20 04:35 Platelet Estimate Consistent w auto 12/14/20 04:35 Clumped Platelets Not Reportable 12/14/20 04:35 Plt Clumps, EDTA Not Reportable 12/14/20 04:35 Large Platelets Not Reportable 12/14/20 04:35 Giant Platelets Not Reportable 12/14/20 04:35 Platelet Satelliting Not Reportable 12/14/20 04:35 Plt Morphology Comment Not Reportable 12/14/20 04:35 RBC Morphology Not Reportable 12/14/20 04:35 Dimorphic RBCs Not Reportable 12/14/20 04:35 Polychromasia Not Reportable 12/14/20 04:35 Hypochromasia Few 12/14/20 04:35 Poikilocytosis Not Reportable 12/14/20 04:35 Anisocytosis Few 12/14/20 04:35 Microcytosis Not Reportable 12/14/20 04:35 Macrocytosis Not Reportable 12/14/20 04:35 Spherocytes Not Reportable 12/14/20 04:35 Pappenheimer Bodies Not Reportable 12/14/20 04:35 Sickle Cells Not Reportable 12/14/20 04:35 Target Cells Not Reportable 12/14/20 04:35 Tear Drop Cells Not Reportable 12/14/20 04:35 Ovalocytes Not Reportable 12/14/20 04:35 Stomatocytes 1+ 12/03/20 04:35 Helmet Cells Not Reportable 12/14/20 04:35 Cabrera-King[place] Bodies Not Reportable 12/14/20 04:35 [place] Rings Not Reportable 12/14/20 04:35 [place] Cells Not Reportable 12/14/20 04:35 Bite Cells Not Reportable 12/14/20 04:35 Crenated Cell Not Reportable 12/14/20 04:35 Elliptocytes Not Reportable 12/14/20 04:35 Acanthocytes (Spur) Not Reportable 12/14/20 04:35 Rouleaux Not Reportable 12/14/20 04:35 Hemoglobin C Crystals Not Reportable 12/14/20 04:35 Schistocytes Not Reportable 12/14/20 04:35 Malaria parasites Not Reportable 12/14/20 04:35 Yovani Bodies Not Reportable 12/14/20 04:35 Hem Pathologist Commnt No 12/14/20 04:35 D-Dimer 926.11 ng/mlDDU (0-234) H 11/26/20 06:04 ABG pH 7.446 (7.320-7.450) 12/23/20 05:19 POC ABG pCO2 67.7 mmHg (32.0-48.0) H 12/23/20 05:19 ABG pCO2 81.3 mm Hg 12/08/20 04:12 POC ABG pO2 53.7 mmHg (83-108) L 12/23/20 05:19 ABG pO2 69.7 mm Hg (80.0-90.0) L 12/08/20 04:12 POC ABG HCO3 45.6 12/23/20 05:19 ABG HCO3 50.1 mmol/L (20.0-26.0) H 12/08/20 04:12 ABG O2 Saturation 89.6 (0-100) 12/23/20 05:19 ABG O2 Content 13.0 (0.0-44) 12/07/20 05:20 POC ABG Base Excess 18.8 12/23/20 05:19 ABG Base Excess 21.6 mmol/L (-2.0-3.0) H 12/08/20 04:12 ABG Hemoglobin 9.6 (12.0-17.5) L 12/23/20 05:19 ABG Oxyhemoglobin 84.2 (94-98) L 12/19/20 03:41 ABG Carboxyhemoglobin 2.0 % (0.0-5.0) 12/08/20 04:12 ABG Methemoglobin 0.3 (0.0-1.5) 12/19/20 03:41 ABG Sodium 130.2 mmol/L (136.0-145.0) L 12/23/20 05:19 ABG Potassium 4.0 mmol/L (3.40-4.50) 12/23/20 05:19 ABG Chloride 88.0 mmol/L (98-107) L 12/23/20 05:19 ABG Glucose 195 mg/dL (65-95) H 12/23/20 05:19 Oxyhemoglobin 93.2 % (95.0-99.0) L 12/08/20 04:12 Carboxyhemoglobin 1.6 (0.5-1.5) H 12/19/20 03:41 FiO2 90 12/23/20 05:19 Sodium 135 mmol/L (137-145) L 12/23/20 06:07 Potassium 4.1 mmol/L (3.6-5.0) 12/23/20 06:07 Chloride 89.3 mmol/L (98-107) L 12/23/20 06:07 Carbon Dioxide 43 mmol/L (22-30) H* 12/23/20 06:07 Anion Gap 7 mmol/L 12/23/20 06:07 BUN 11 mg/dL (9-20) 12/23/20 06:07 Creatinine 0.2 mg/dL (0.8-1.3) L 12/23/20 06:07 Estimated GFR > 60 ml/min 12/23/20 06:07 BUN/Creatinine Ratio 55 % 12/23/20 06:07 Glucose 193 mg/dL (75-100) H 12/23/20 06:07 POC Glucose 155 mg/dL (70-105) H 12/23/20 11:21 Hemoglobin A1c 11.7 % (4-6) H 11/16/20 05:29 Lactic Acid 2.60 mmol/L (0.7-2.0) H* 11/16/20 05:29 Calcium 7.4 mg/dL (8.4-10.2) L 12/23/20 06:07 Phosphorus 2.60 mg/dL (2.5-4.5) 12/17/20 17:25 Magnesium 1.60 mg/dL (1.7-2.3) L 12/17/20 17:25 Ferritin 778.8 ng/mL (30.0-300.0) H 11/26/20 04:00 Total Bilirubin 0.40 mg/dL (0.1-1.2) 12/17/20 17:25 AST 29 units/L (5-40) 12/17/20 17:25 ALT 47 units/L (7-56) 12/17/20 17:25 Alkaline Phosphatase 119 units/L (35-129) 12/17/20 17:25 Lactate Dehydrogenase 288 units/L (91-180) H 11/26/20 04:00 Total Creatine Kinase 47 units/L (55-170) L 12/17/20 17:25 CK-MB (CK-2) 1.8 ng/mL (0.0-4.0) 12/17/20 17:25 CK-MB (CK-2) Rel Index 3.8 (0-4) 12/17/20 17:25 Troponin T < 0.010 ng/mL (0.00-0.029) 12/11/20 06:30 C-Reactive Protein 1.40 mg/dL (0.00-1.30) H 11/26/20 04:00 NT-Pro-B Natriuret Pep 107.2 pg/mL (0-900) 11/17/20 10:21 Total Protein 6.2 g/dL (6.3-8.2) L 12/17/20 17:25 Albumin 2.1 g/dL (3.9-5) L 12/17/20 17:25 Albumin/Globulin Ratio 0.5 % 12/17/20 17:25 Triglycerides 150 mg/dL (2-149) H 12/12/20 05:16 Procalcitonin 0.16 ng/mL (<0.15) 12/12/20 05:16 Arterial Blood Glucose 195 mg/dL (65-95) H 12/23/20 05:19 Arterial Blood Ionized Calcium 4.1 mg/dL (4.6-5.3) L 12/23/20 05:19 Urine Color Yellow (Yellow) 12/21/20 Unknown Urine Turbidity Cloudy (Clear) 12/21/20 Unknown Urine pH 6.0 (5.0-7.0) 12/21/20 Unknown Ur Specific [place] 1.013 (1.003-1.030) 12/21/20 Unknown Urine Protein <15 mg/dl mg/dL (Negative) 12/21/20 Unknown Urine Glucose (UA) Neg mg/dL (Negative) 12/21/20 Unknown Urine Ketones Neg mg/dL (Negative) 12/21/20 Unknown Urine Blood Neg (Negative) 12/21/20 Unknown Urine Nitrite Neg (Negative) 12/21/20 Unknown Urine Bilirubin Neg (Negative) 12/21/20 Unknown Urine Urobilinogen < 2.0 mg/dL (<2.0) 12/21/20 Unknown Ur Leukocyte Esterase Mod (Negative) 12/21/20 Unknown Urine WBC (Auto) 172.0 /HPF (0.0-6.0) H 12/21/20 Unknown Urine RBC (Auto) > 182.0 /HPF (0.0-6.0) 12/21/20 Unknown U Epithel Cells (Auto) 3.0 /HPF (0-13.0) 12/21/20 Unknown Urine Bacteria (Auto) 2+ /HPF (Negative) 12/21/20 Unknown Ur Renal Epithelial Cell <1 /LPF 12/21/20 Unknown Urine Mucus 2+ /HPF 12/21/20 Unknown Urine Yeast (Budding) 3+ /HPF 12/21/20 Unknown Vancomycin Trough 16.9 ug/mL (5.0-20.0) 12/19/20 15:46 Coronavirus (PCR) Positive (Negative) A 12/13/20 10:00 Hepatitis A IgM Ab Non-reactive (NonReactive) 12/17/20 21:40 Hep Bs Antigen Non-reactive (Negative) 12/17/20 21:40 Hep B Core IgM Ab Non-reactive (NonReactive) 12/17/20 21:40 Hepatitis C Antibody Non-reactive (NonReactive) 12/17/20 21:40 HIV 1&2 Antibody Rapid Non react (Non React) 12/17/20 21:40 HIV P24 Antigen Non react (Non React) 12/17/20 21:40 Microbiology: Microbiology 12/21/20 16:44 Peripheral/Venous Blood Culture - Preliminary NO GROWTH AFTER 24 HOURS 12/21/20 16:44 Peripheral/Venous Blood Culture - Preliminary NO GROWTH AFTER 24 HOURS - Diagnostic Impressions Diagnostic Impressions: Echocardiogram 11/16/20 10:34 Transthoracic Echocardiogram Indication: Shortness of breath-COVID BP: 108/77 HR: 92 Conclusions *Global left ventricular systolic function is normal. *The estimated ejection fraction is 60-65%. *Mild to moderate concentric left ventricular hypertrophy is observed. *There is trace of mitral regurgitation. *There is mild to moderate tricuspid regurgitation. *There is evidence of mild pulmonary hypertension. *The right ventricular systolic pressure is calculated at 31 mmHg. Findings Left Ventricle: The left ventricular chamber size is normal. Mild to moderate concentric left ventricular hypertrophy is observed. Global left ventricular systolic function is normal. The estimated ejection fraction is 60-65%. Left Atrium: The left atrial chamber size is normal. Right Ventricle: The right ventricular cavity size is normal. The right ventricular global systolic function is normal. Right Atrium: The right atrial cavity size is normal. Aortic Valve: The aortic valve is trileaflet. There is no evidence of aortic regurgitation. There is no evidence of aortic stenosis. Mitral Valve: The mitral valve leaflets appear normal. There is trace of mitral regurgitation. There is no evidence of mitral stenosis. Tricuspid Valve: The tricuspid valve leaflets are normal. There is mild to moderate tricuspid regurgitation. The right ventricular systolic pressure is calculated at 31 mmHg. There is evidence of mild pulmonary hypertension. Pulmonic Valve: There is trace pulmonic regurgitation. Pericardium: There is no pericardial effusion. Aorta: There is no dilatation of the ascending aorta. There is no dilatation of the aortic root. Venous: The inferior vena cava appears normal in size. Measurements Chambers 2D Name Value Normal Range IVSd (2D) 0.81 cm (0.6 - 1.1) LVPWd (2D) 0.79 cm (0.6 - 1.1) LVIDd (2D) 4.22 cm (3.7 - 5.6) LVIDs (2D) 3.1 cm (2 - 3.8) LV FS (2D) 26.71 % - EF Teichholz (2D) 52.55 % - Ao root diameter (2D) 3.34 cm (2 - 3.7) Volumes/Mass Name Value Normal Range LA ESV SP 4CH (A/L) 10.87 ml - LA ESV SP 2CH (A/L) 18.74 ml - LA ESV BP (A/L) 16.38 ml - LA ESV BP (A/L) index 8.62 ml/m2 - LA ESV SP 4CH (MOD) 10.32 ml - LA ESV SP 2CH (MOD) 17.66 ml - LA ESV BP (MOD) 15.12 ml - LA ESV BP (MOD) index 7.96 ml/m2 - Diastolic/Systolic Function Name Value Normal Range MV E-wave Vmax 0.76 m/sec - MV deceleration time 133.63 msec - MV A-wave Vmax 1.1 m/sec - MV E:A ratio 0.69 ratio - Aortic Valve Name Value Normal Range AV Vmax 1.44 m/sec - AV VTI 22.94 cm - AV peak gradient 8.33 mmHg - AV mean gradient 4.73 mmHg - LVOT diameter 2.2 cm - LVOT Vmax 1.04 m/sec - LVOT VTI 18.88 cm - LVOT peak gradient 4.34 mmHg - LVOT mean gradient 2.31 mmHg - SV LVOT 72.05 ml - EVANGELISTA (continuity Vmax) 2.75 cm2 - EVANGELISTA (continuity VTI) 3.14 cm2 - Tricuspid Valve Name Value Normal Range TR Vmax 2.64 m/sec - TR peak gradient 28 mmHg - RAP 3 mmHg - RVSP 31 mmHg - Gupta/IV: Voiding Method Indwelling Catheter IV Catheter Type [Left Peripheral IV Antecubital] Active Medications - Current Medications Current Medications: Generic Name Dose Route Start Last Admin Trade Name Freq PRN Reason Stop Dose Admin Acetaminophen 650 mg 11/15/20 23:55 12/23/20 04:01 Acetaminophen 325 Mg Tab PO 650 mg Q4H PRN Administration Pain MILD(1-3)/Fever >100.5/BUTTS Lipase/Protease/Amylase 1 each 11/23/20 11:53 12/05/20 23:45 Lipase 10,500/Protease 25,000/Amylase 43,750 (Units) Dr Cap FEEDTUBE 1 each PRN PRN Administration For Clogged Feeding Tube Dextrose 25 ml 12/10/20 05:21 12/10/20 05:24 Dextrose 50% In Water (25gm) 50 Ml Syringe IV 25 ml Q30MIN PRN Administration Hypoglycemia Protocol Docusate Sodium 100 mg 12/23/20 10:00 12/23/20 09:02 Docusate Sodium 100 Mg/10 Ml Oral Liqd PO 100 mg BID RAEANN Administration Enoxaparin Sodium 40 mg 12/03/20 22:00 12/22/20 22:12 Enoxaparin 40 Mg/0.4 Ml Inj SUB-Q 40 mg QDAY@2200 RAEANN Administration Famotidine 20 mg 12/16/20 10:00 12/23/20 09:03 Famotidine 20 Mg Tab PO 20 mg BID RAEANN Administration Hydrophilic Ointment 1 applic 11/21/20 21:53 11/30/20 21:33 Lip Therapy Vaseline TP 1 applic Q2HR PRN Administration Dry Lips Midazolam HCl 100 mg/ Sodium 100 mls @ 2 mls/hr 11/21/20 22:00 12/23/20 02:13 Chloride IV 5 mg/hr TITR RAEANN 5 mls/hr Administration Protocol 2 MG/HR Norepinephrine 4 mg in 250 mls @ 7.5 mls/hr 11/22/20 17:00 12/23/20 05:47 Levophed Drip 4 Mg/Ns 250 Ml IV 9 mcg/min TITR RAEANN 33.75 mls/hr Titration Protocol 2 MCG/MIN Propofol 1,000 mg in 100 mls @ 2.175 mls/hr 11/27/20 12:00 12/23/20 06:29 Diprivan 10 Mg/Ml IV 15 mcg/kg/min TITR RAEANN 6.525 mls/hr Titration Protocol 5 MCG/KG/MIN Dexmedetomidine HCl 400 mcg/ 104 mls @ 4.441 mls/hr 12/10/20 13:00 12/23/20 09:48 Sodium Chloride IV 0.7 mcg/kg/hr TITRATE RAEANN 15.543 mls/hr Administration Protocol 0.2 MCG/KG/HR Fentanyl Citrate 2,000 mcg in 100 mls @ 3.9 mls/hr 12/18/20 19:00 12/23/20 09:02 Fentanyl Drip Premix IV 4 mcg/kg/hr TITR RAEANN 15.6 mls/hr Administration Protocol 1 MCG/KG/HR Ampicillin Sodium 2 gm in 100 mls @ 100 mls/hr 12/22/20 14:00 12/23/20 13:01 Ampicillin/Ns 2 Gm/100 Ml IV 12/31/20 08:59 100 mls/hr Q6H [facility] Administration Protocol Insulin Glargine 8 units 12/17/20 13:52 12/22/20 22:12 Insulin Glargine 100 Units/Ml SUB-Q 8 units QHS [facility] Administration Insulin Human Lispro 0 unit 11/22/20 06:00 12/23/20 13:01 Insulin Lispro 100 Unit/Ml SUB-Q 3 unit Q6HR [facility] Administration Protocol Metoclopramide HCl 10 mg 11/15/20 23:55 Metoclopramide 10 Mg/2 Ml Inj IV Q6H PRN Nausea And Vomiting Multi-Ingred Cream/Lotion/Oil/Oint 1 applic 11/21/20 21:53 Mineral Oil/Petrolatum, White Ophth Oint 3.5 Gm OU Q4HR PRN Dry Eye(s) Ondansetron HCl 4 mg 11/15/20 23:55 Ondansetron 4 Mg/2 Ml Inj IV Q8H PRN Nausea And Vomiting Polyethylene Glycol 17 gm 12/23/20 10:00 12/23/20 09:02 Polyethylene Glycol 3350 17 Gm Powder PO 17 gm QDAY RAEANN Administration Senna/Docusate Sodium 2 tab 12/21/20 14:00 12/23/20 06:27 Sennosides/Docusate Sodium 8.6/50 Mg Tab PO 2 tab Q8HR RAEANN Administration Simple Syrup 15 ml 11/23/20 11:53 Simple Syrup 15 Ml FEEDTUBE PRN PRN Hypoglycemia Simple Syrup 30 ml 11/23/20 11:53 Simple Syrup 15 Ml FEEDTUBE PRN PRN Hypoglycemia Sodium Bicarbonate 325 mg 11/23/20 11:53 12/05/20 23:46 Sodium Bicarbonate 325 Mg Tab FEEDTUBE 325 mg PRN PRN Administration For Clogged Feeding Tube Sodium Chloride 10 ml 11/16/20 10:00 12/23/20 09:05 Sodium Chloride 0.9% 10 Ml Flush Syringe IV 10 ml BID RAEANN Administration Sodium Chloride 10 ml 11/15/20 23:55 12/03/20 00:21 Sodium Chloride 0.9% 10 Ml Flush Syringe IV 10 ml PRN PRN Administration LINE FLUSH Nutrition/Malnutrition Assess - Dietary Evaluation Nutrition/Malnutrition Findings: Nutrition Notes Start: 11/20/20 12:03 Freq: Status: Active Protocol: Document 12/21/20 12:15 (Rec: 12/21/20 12:25 [id number]) Nutrition Notes Initial or Follow up Reassessment Current Diagnosis Diabetes,Sepsis,Respiratory Failure Other Pertinent Diagnosis Bilat pneu, COVID-19 (+) Current Diet Glucerna 1.2 at 60 ml/hr Labs/Tests Na 132 BG 207 Pertinent Medications Propofol Levophed Prednisone Senokot S Height 5 ft 6 in Weight 81.3 kg [place] Body Weight (kg) 64.54 BMI 28.9 Weight Status Overweight Subjective/Other Information FU for TF tolerance. Pt tolerating TF at goal. MD to increase Percent of energy/protein needs met: 100%/100% Burn Absent Trauma Absent GI Symptoms Last BM Difficulty In Swallowing,Chewing Current % PO Negligible Minimum of two criteria Yes Energy Intake (severe) < or equal to 50% Estimated Energy Requirement > or equal to 5 days Interpretation of Weight Loss (severe) >2% in 1 week Fluid Accumulation Moderate to Severe (severe) #3 Nutrition Diagnosis Inadequate oral intake Diagnosis Progress(for reassessment Continues documentation) #2 Nutrition Diagnosis Malnutrition Diagnosis Progress(for reassessment Continues documentation) #1 Nutrition Diagnosis Unintended weight loss Diagnosis Progress(for reassessment Continues documentation) Is patient on ventilator? Yes Is Patient Ambulatory and/or Out of Bed No REE-([facility]-confined to bed) 1895.496 Kcal/Kg value to use for calculation 22 Approximate Energy Requirements Using 1789 kcal/Kg Calculation Used for Recommendations [facility] Additional Notes Protein: 87-145 g/day (1.2-2g/ kg) Fluid: 1ml/kcal or per MD Nutrition Intervention Change Diet Order: Continue TF Nutrition Support: Glucerna 1.2 at 65 ml/hr. Flush 125 ml q4h Kcal 1,872 Protein (gm) 93 Fluid (mL) 1,255 Goal #1 Meet at least 75% of energy and protein needs via TF Goal #2 TF tolerance Anticipated Discharge Needs: Unable to determine at this time Follow-Up By: 12/25/20 Additional Comments FU for TF tolerance, BM <YUNIER NICOLE - Last Filed: 12/24/20 08:07> Hospitalist Physical - Constitutional Vitals: Temp Pulse Resp BP Pulse Ox 99.0 F 73 7 L 100/55 94 12/24/20 04:00 12/24/20 06:00 12/24/20 06:00 12/24/20 06:00 12/24/20 06:00 HEART Score - HEART Score Troponin: Troponin T < 0.010 ng/mL (0.00-0.029) 12/11/20 06:30 Results - Labs CBC & Chem 7: 12/20/20 04:00 12/23/20 06:07 Labs: Laboratory Last Values WBC 9.4 K/mm3 (4.5-11.0) 12/20/20 04:00 RBC 3.21 M/mm3 (3.65-5.03) L 12/20/20 04:00 Hgb 9.6 gm/dl (11.8-15.2) L 12/20/20 04:00 Hct 29.2 % (35.5-45.6) L 12/20/20 04:00 MCV 91 fl (84-94) 12/20/20 04:00 MCH 30 pg (28-32) 12/20/20 04:00 MCHC 33 % (32-34) 12/20/20 04:00 RDW 15.8 % (13.2-15.2) H 12/20/20 04:00 Plt Count 309 K/mm3 (140-440) 12/20/20 04:00 Lymph % (Auto) 2.0 % (13.4-35.0) L 11/27/20 06:25 [place] % (Auto) 5.2 % (0.0-7.3) 11/27/20 06:25 Eos % (Auto) 0.0 % (0.0-4.3) 11/27/20 06:25 Baso % (Auto) 0.1 % (0.0-1.8) 11/27/20 06:25 Lymph # (Auto) 0.3 K/mm3 (1.2-5.4) L 11/27/20 06:25 [place] # (Auto) 0.7 K/mm3 (0.0-0.8) 11/27/20 06:25 Eos # (Auto) 0.0 K/mm3 (0.0-0.4) 11/27/20 06:25 Baso # (Auto) 0.0 K/mm3 (0.0-0.1) 11/27/20 06:25 Add Manual Diff Complete 12/14/20 04:35 Total Counted 100 12/14/20 04:35 Seg Neutrophils % Rn Advanced 12/14/20 04:35 Seg Neuts % (Manual) 93.0 % (40.0-70.0) H 12/14/20 04:35 Band Neutrophils % 2.0 % 12/13/20 11:30 Lymphocytes % (Manual) 3.0 % (13.4-35.0) L 12/14/20 04:35 Monocytes % (Manual) 4.0 % (0.0-7.3) 12/14/20 04:35 Nucleated RBC % Not Reportable 12/14/20 04:35 Seg Neutrophils # 12.7 K/mm3 (1.8-7.7) H 11/27/20 06:25 Seg Neutrophils # Man 7.8 K/mm3 (1.8-7.7) H 12/14/20 04:35 Band Neutrophils # 0.0 K/mm3 12/14/20 04:35 Lymphocytes # (Manual) 0.3 K/mm3 (1.2-5.4) L 12/14/20 04:35 Abs React Lymphs (Man) 0.0 K/mm3 12/14/20 04:35 Monocytes # (Manual) 0.3 K/mm3 (0.0-0.8) 12/14/20 04:35 Eosinophils # (Manual) 0.0 K/mm3 (0.0-0.4) 12/14/20 04:35 Basophils # (Manual) 0.0 K/mm3 (0.0-0.1) 12/14/20 04:35 Metamyelocytes # 0.0 K/mm3 12/14/20 04:35 Myelocytes # 0.0 K/mm3 12/14/20 04:35 Promyelocytes # 0.0 K/mm3 12/14/20 04:35 Blast Cells # 0.0 K/mm3 12/14/20 04:35 WBC Morphology Not Reportable 12/14/20 04:35 Hypersegmented Neuts Not Reportable 12/14/20 04:35 Hyposegmented Neuts Not Reportable 12/14/20 04:35 Hypogranular Neuts Not Reportable 12/14/20 04:35 Smudge Cells Not Reportable 12/14/20 04:35 Toxic Granulation Not Reportable 12/14/20 04:35 Toxic Vacuolation Not Reportable 12/14/20 04:35 Dohle Bodies Not Reportable 12/14/20 04:35 Pelger-Huet Anomaly Not Reportable 12/14/20 04:35 Tony Rods Not Reportable 12/14/20 04:35 Platelet Estimate Consistent w auto 12/14/20 04:35 Clumped Platelets Not Reportable 12/14/20 04:35 Plt Clumps, EDTA Not Reportable 12/14/20 04:35 Large Platelets Not Reportable 12/14/20 04:35 Giant Platelets Not Reportable 12/14/20 04:35 Platelet Satelliting Not Reportable 12/14/20 04:35 Plt Morphology Comment Not Reportable 12/14/20 04:35 RBC Morphology Not Reportable 12/14/20 04:35 Dimorphic RBCs Not Reportable 12/14/20 04:35 Polychromasia Not Reportable 12/14/20 04:35 Hypochromasia Few 12/14/20 04:35 Poikilocytosis Not Reportable 12/14/20 04:35 Anisocytosis Few 12/14/20 04:35 Microcytosis Not Reportable 12/14/20 04:35 Macrocytosis Not Reportable 12/14/20 04:35 Spherocytes Not Reportable 12/14/20 04:35 Pappenheimer Bodies Not Reportable 12/14/20 04:35 Sickle Cells Not Reportable 12/14/20 04:35 Target Cells Not Reportable 12/14/20 04:35 Tear Drop Cells Not Reportable 12/14/20 04:35 Ovalocytes Not Reportable 12/14/20 04:35 Stomatocytes 1+ 12/03/20 04:35 Helmet Cells Not Reportable 12/14/20 04:35 Cabrera-[place] Bodies Not Reportable 12/14/20 04:35 [place] Rings Not Reportable 12/14/20 04:35 [place] Cells Not Reportable 12/14/20 04:35 Bite Cells Not Reportable 12/14/20 04:35 Crenated Cell Not Reportable 12/14/20 04:35 Elliptocytes Not Reportable 12/14/20 04:35 Acanthocytes (Spur) Not Reportable 12/14/20 04:35 Rouleaux Not Reportable 12/14/20 04:35 Hemoglobin C Crystals Not Reportable 12/14/20 04:35 Schistocytes Not Reportable 12/14/20 04:35 Malaria parasites Not Reportable 12/14/20 04:35 Yovani Bodies Not Reportable 12/14/20 04:35 Hem Pathologist Commnt No 12/14/20 04:35 D-Dimer 926.11 ng/mlDDU (0-234) H 11/26/20 06:04 ABG pH 7.446 (7.320-7.450) 12/23/20 05:19 POC ABG pCO2 67.7 mmHg (32.0-48.0) H 12/23/20 05:19 ABG pCO2 81.3 mm Hg 12/08/20 04:12 POC ABG pO2 53.7 mmHg (83-108) L 12/23/20 05:19 ABG pO2 69.7 mm Hg (80.0-90.0) L 12/08/20 04:12 POC ABG HCO3 45.6 12/23/20 05:19 ABG HCO3 50.1 mmol/L (20.0-26.0) H 12/08/20 04:12 ABG O2 Saturation 89.6 (0-100) 12/23/20 05:19 ABG O2 Content 13.0 (0.0-44) 12/07/20 05:20 POC ABG Base Excess 18.8 12/23/20 05:19 ABG Base Excess 21.6 mmol/L (-2.0-3.0) H 12/08/20 04:12 ABG Hemoglobin 9.6 (12.0-17.5) L 12/23/20 05:19 ABG Oxyhemoglobin 84.2 (94-98) L 12/19/20 03:41 ABG Carboxyhemoglobin 2.0 % (0.0-5.0) 12/08/20 04:12 ABG Methemoglobin 0.3 (0.0-1.5) 12/19/20 03:41 ABG Sodium 130.2 mmol/L (136.0-145.0) L 12/23/20 05:19 ABG Potassium 4.0 mmol/L (3.40-4.50) 12/23/20 05:19 ABG Chloride 88.0 mmol/L (98-107) L 12/23/20 05:19 ABG Glucose 195 mg/dL (65-95) H 12/23/20 05:19 Oxyhemoglobin 93.2 % (95.0-99.0) L 12/08/20 04:12 Carboxyhemoglobin 1.6 (0.5-1.5) H 12/19/20 03:41 FiO2 90 12/23/20 05:19 Sodium 135 mmol/L (137-145) L 12/23/20 06:07 Potassium 4.1 mmol/L (3.6-5.0) 12/23/20 06:07 Chloride 89.3 mmol/L (98-107) L 12/23/20 06:07 Carbon Dioxide 43 mmol/L (22-30) H* 12/23/20 06:07 Anion Gap 7 mmol/L 12/23/20 06:07 BUN 11 mg/dL (9-20) 12/23/20 06:07 Creatinine 0.2 mg/dL (0.8-1.3) L 12/23/20 06:07 Estimated GFR > 60 ml/min 12/23/20 06:07 BUN/Creatinine Ratio 55 % 12/23/20 06:07 Glucose 193 mg/dL (75-100) H 12/23/20 06:07 POC Glucose 162 mg/dL (70-105) H 12/24/20 05:19 Hemoglobin A1c 11.7 % (4-6) H 11/16/20 05:29 Lactic Acid 2.60 mmol/L (0.7-2.0) H* 11/16/20 05:29 Calcium 7.4 mg/dL (8.4-10.2) L 12/23/20 06:07 Phosphorus 2.60 mg/dL (2.5-4.5) 12/17/20 17:25 Magnesium 1.60 mg/dL (1.7-2.3) L 12/17/20 17:25 Ferritin 778.8 ng/mL (30.0-300.0) H 11/26/20 04:00 Total Bilirubin 0.40 mg/dL (0.1-1.2) 12/17/20 17:25 AST 29 units/L (5-40) 12/17/20 17:25 ALT 47 units/L (7-56) 12/17/20 17:25 Alkaline Phosphatase 119 units/L (35-129) 12/17/20 17:25 Lactate Dehydrogenase 288 units/L (91-180) H 11/26/20 04:00 Total Creatine Kinase 47 units/L (55-170) L 12/17/20 17:25 CK-MB (CK-2) 1.8 ng/mL (0.0-4.0) 12/17/20 17:25 CK-MB (CK-2) Rel Index 3.8 (0-4) 12/17/20 17:25 Troponin T < 0.010 ng/mL (0.00-0.029) 12/11/20 06:30 C-Reactive Protein 1.40 mg/dL (0.00-1.30) H 11/26/20 04:00 NT-Pro-B Natriuret Pep 107.2 pg/mL (0-900) 11/17/20 10:21 Total Protein 6.2 g/dL (6.3-8.2) L 12/17/20 17:25 Albumin 2.1 g/dL (3.9-5) L 12/17/20 17:25 Albumin/Globulin Ratio 0.5 % 12/17/20 17:25 Triglycerides 486 mg/dL (2-149) H 12/24/20 05:00 Procalcitonin 0.16 ng/mL (<0.15) 12/12/20 05:16 Arterial Blood Glucose 195 mg/dL (65-95) H 12/23/20 05:19 Arterial Blood Ionized Calcium 4.1 mg/dL (4.6-5.3) L 12/23/20 05:19 Urine Color Yellow (Yellow) 12/21/20 Unknown Urine Turbidity Cloudy (Clear) 12/21/20 Unknown Urine pH 6.0 (5.0-7.0) 12/21/20 Unknown Ur Specific [place] 1.013 (1.003-1.030) 12/21/20 Unknown Urine Protein <15 mg/dl mg/dL (Negative) 12/21/20 Unknown Urine Glucose (UA) Neg mg/dL (Negative) 12/21/20 Unknown Urine Ketones Neg mg/dL (Negative) 12/21/20 Unknown Urine Blood Neg (Negative) 12/21/20 Unknown Urine Nitrite Neg (Negative) 12/21/20 Unknown Urine Bilirubin Neg (Negative) 12/21/20 Unknown Urine Urobilinogen < 2.0 mg/dL (<2.0) 12/21/20 Unknown Ur Leukocyte Esterase Mod (Negative) 12/21/20 Unknown Urine WBC (Auto) 172.0 /HPF (0.0-6.0) H 12/21/20 Unknown Urine RBC (Auto) > 182.0 /HPF (0.0-6.0) 12/21/20 Unknown U Epithel Cells (Auto) 3.0 /HPF (0-13.0) 12/21/20 Unknown Urine Bacteria (Auto) 2+ /HPF (Negative) 12/21/20 Unknown Ur Renal Epithelial Cell <1 /LPF 12/21/20 Unknown Urine Mucus 2+ /HPF 12/21/20 Unknown Urine Yeast (Budding) 3+ /HPF 12/21/20 Unknown Vancomycin Trough 16.9 ug/mL (5.0-20.0) 12/19/20 15:46 Coronavirus (PCR) Positive (Negative) A 12/13/20 10:00 Hepatitis A IgM Ab Non-reactive (NonReactive) 12/17/20 21:40 Hep Bs Antigen Non-reactive (Negative) 12/17/20 21:40 Hep B Core IgM Ab Non-reactive (NonReactive) 12/17/20 21:40 Hepatitis C Antibody Non-reactive (NonReactive) 12/17/20 21:40 HIV 1&2 Antibody Rapid Non react (Non React) 12/17/20 21:40 HIV P24 Antigen Non react (Non React) 12/17/20 21:40 Microbiology: Microbiology 12/21/20 16:44 Peripheral/Venous Blood Culture - Preliminary NO GROWTH AFTER 48 HOURS 12/21/20 16:44 Peripheral/Venous Blood Culture - Preliminary NO GROWTH AFTER 48 HOURS - Diagnostic Impressions Diagnostic Impressions: Echocardiogram 11/16/20 10:34 Transthoracic Echocardiogram Indication: Shortness of breath-COVID BP: 108/77 HR: 92 Conclusions *Global left ventricular systolic function is normal. *The estimated ejection fraction is 60-65%. *Mild to moderate concentric left ventricular hypertrophy is observed. *There is trace of mitral regurgitation. *There is mild to moderate tricuspid regurgitation. *There is evidence of mild pulmonary hypertension. *The right ventricular systolic pressure is calculated at 31 mmHg. Findings Left Ventricle: The left ventricular chamber size is normal. Mild to moderate concentric left ventricular hypertrophy is observed. Global left ventricular systolic function is normal. The estimated ejection fraction is 60-65%. Left Atrium: The left atrial chamber size is normal. Right Ventricle: The right ventricular cavity size is normal. The right ventricular global systolic function is normal. Right Atrium: The right atrial cavity size is normal. Aortic Valve: The aortic valve is trileaflet. There is no evidence of aortic regurgitation. There is no evidence of aortic stenosis. Mitral Valve: The mitral valve leaflets appear normal. There is trace of mitral regurgitation. There is no evidence of mitral stenosis. Tricuspid Valve: The tricuspid valve leaflets are normal. There is mild to moderate tricuspid regurgitation. The right ventricular systolic pressure is calculated at 31 mmHg. There is evidence of mild pulmonary hypertension. Pulmonic Valve: There is trace pulmonic regurgitation. Pericardium: There is no pericardial effusion. Aorta: There is no dilatation of the ascending aorta. There is no dilatation of the aortic root. Venous: The inferior vena cava appears normal in size. Measurements Chambers 2D Name Value Normal Range IVSd (2D) 0.81 cm (0.6 - 1.1) LVPWd (2D) 0.79 cm (0.6 - 1.1) LVIDd (2D) 4.22 cm (3.7 - 5.6) LVIDs (2D) 3.1 cm (2 - 3.8) LV FS (2D) 26.71 % - EF Teichholz (2D) 52.55 % - Ao root diameter (2D) 3.34 cm (2 - 3.7) Volumes/Mass Name Value Normal Range LA ESV SP 4CH (A/L) 10.87 ml - LA ESV SP 2CH (A/L) 18.74 ml - LA ESV BP (A/L) 16.38 ml - LA ESV BP (A/L) index 8.62 ml/m2 - LA ESV SP 4CH (MOD) 10.32 ml - LA ESV SP 2CH (MOD) 17.66 ml - LA ESV BP (MOD) 15.12 ml - LA ESV BP (MOD) index 7.96 ml/m2 - Diastolic/Systolic Function Name Value Normal Range MV E-wave Vmax 0.76 m/sec - MV deceleration time 133.63 msec - MV A-wave Vmax 1.1 m/sec - MV E:A ratio 0.69 ratio - Aortic Valve Name Value Normal Range AV Vmax 1.44 m/sec - AV VTI 22.94 cm - AV peak gradient 8.33 mmHg - AV mean gradient 4.73 mmHg - LVOT diameter 2.2 cm - LVOT Vmax 1.04 m/sec - LVOT VTI 18.88 cm - LVOT peak gradient 4.34 mmHg - LVOT mean gradient 2.31 mmHg - SV LVOT 72.05 ml - EVANGELISTA (continuity Vmax) 2.75 cm2 - EVANGELISTA (continuity VTI) 3.14 cm2 - Tricuspid Valve Name Value Normal Range TR Vmax 2.64 m/sec - TR peak gradient 28 mmHg - RAP 3 mmHg - RVSP 31 mmHg - Gupta/IV: Voiding Method Indwelling Catheter IV Catheter Type [Left Peripheral IV Antecubital] Active Medications - Current Medications Current Medications: Generic Name Dose Route Start Last Admin Trade Name Freq PRN Reason Stop Dose Admin Acetaminophen 650 mg 11/15/20 23:55 12/24/20 02:29 Acetaminophen 325 Mg Tab PO 650 mg Q4H PRN Administration Pain MILD(1-3)/Fever >100.5/BUTTS Lipase/Protease/Amylase 1 each 11/23/20 11:53 12/05/20 23:45 Lipase 10,500/Protease 25,000/Amylase 43,750 (Units) Dr Cap FEEDTUBE 1 each PRN PRN Administration For Clogged Feeding Tube Dextrose 25 ml 12/10/20 05:21 12/10/20 05:24 Dextrose 50% In Water (25gm) 50 Ml Syringe IV 25 ml Q30MIN PRN Administration Hypoglycemia Protocol Docusate Sodium 100 mg 12/23/20 10:00 12/23/20 21:24 Docusate Sodium 100 Mg/10 Ml Oral Liqd PO 100 mg BID RAEANN Administration Enoxaparin Sodium 40 mg 12/03/20 22:00 12/23/20 21:24 Enoxaparin 40 Mg/0.4 Ml Inj SUB-Q 40 mg QDAY@2200 RAEANN Administration Famotidine 20 mg 12/16/20 10:00 12/23/20 21:25 Famotidine 20 Mg Tab PO 20 mg BID RAEANN Administration Hydrophilic Ointment 1 applic 11/21/20 21:53 11/30/20 21:33 Lip Therapy Vaseline TP 1 applic Q2HR PRN Administration Dry Lips Midazolam HCl 100 mg/ Sodium 100 mls @ 2 mls/hr 11/21/20 22:00 12/23/20 17:54 Chloride IV 5 mg/hr TITR RAEANN 5 mls/hr Administration Protocol 2 MG/HR Norepinephrine 4 mg in 250 mls @ 7.5 mls/hr 11/22/20 17:00 12/23/20 17:52 Levophed Drip 4 Mg/Ns 250 Ml IV 9 mcg/min TITR RAEANN 33.75 mls/hr Administration Protocol 2 MCG/MIN Propofol 1,000 mg in 100 mls @ 2.175 mls/hr 11/27/20 12:00 12/24/20 01:26 Diprivan 10 Mg/Ml IV 15 mcg/kg/min TITR RAEANN 6.525 mls/hr Administration Protocol 5 MCG/KG/MIN Dexmedetomidine HCl 400 mcg/ 104 mls @ 4.441 mls/hr 12/10/20 13:00 12/24/20 01:28 Sodium Chloride IV 0.7 mcg/kg/hr TITRATE RAEANN 15.543 mls/hr Administration Protocol 0.2 MCG/KG/HR Fentanyl Citrate 2,000 mcg in 100 mls @ 3.9 mls/hr 12/18/20 19:00 12/24/20 03:23 Fentanyl Drip Premix IV 4 mcg/kg/hr TITR RAEANN 15.6 mls/hr Administration Protocol 1 MCG/KG/HR Ampicillin Sodium 2 gm in 100 mls @ 100 mls/hr 12/22/20 14:00 12/23/20 20:37 Ampicillin/Ns 2 Gm/100 Ml IV 12/31/20 08:59 100 mls/hr Q6H RAEANN Administration Protocol Insulin Glargine 8 units 12/17/20 13:52 12/23/20 21:25 Insulin Glargine 100 Units/Ml SUB-Q 8 units QHS RAEANN Administration Insulin Human Lispro 0 unit 11/22/20 06:00 12/24/20 06:05 Insulin Lispro 100 Unit/Ml SUB-Q 3 unit Q6HR RAEANN Administration Protocol Metoclopramide HCl 10 mg 11/15/20 23:55 Metoclopramide 10 Mg/2 Ml Inj IV Q6H PRN Nausea And Vomiting Multi-Ingred Cream/Lotion/Oil/Oint 1 applic 11/21/20 21:53 Mineral Oil/Petrolatum, White Ophth Oint 3.5 Gm OU Q4HR PRN Dry Eye(s) Ondansetron HCl 4 mg 11/15/20 23:55 Ondansetron 4 Mg/2 Ml Inj IV Q8H PRN Nausea And Vomiting Polyethylene Glycol 17 gm 12/23/20 10:00 12/23/20 09:02 Polyethylene Glycol 3350 17 Gm Powder PO 17 gm QDAY [facility] Administration Senna/Docusate Sodium 2 tab 12/21/20 14:00 12/24/20 07:04 Sennosides/Docusate Sodium 8.6/50 Mg Tab PO Not Given Q8HR [facility] Simple Syrup 15 ml 11/23/20 11:53 Simple Syrup 15 Ml FEEDTUBE PRN PRN Hypoglycemia Simple Syrup 30 ml 11/23/20 11:53 Simple Syrup 15 Ml FEEDTUBE PRN PRN Hypoglycemia Sodium Bicarbonate 325 mg 11/23/20 11:53 12/05/20 23:46 Sodium Bicarbonate 325 Mg Tab FEEDTUBE 325 mg PRN PRN Administration For Clogged Feeding Tube Sodium Chloride 10 ml 11/16/20 10:00 12/23/20 21:25 Sodium Chloride 0.9% 10 Ml Flush Syringe IV 10 ml BID RAEANN Administration Sodium Chloride 10 ml 11/15/20 23:55 12/03/20 00:21 Sodium Chloride 0.9% 10 Ml Flush Syringe IV 10 ml PRN PRN Administration LINE FLUSH Nutrition/Malnutrition Assess - Dietary Evaluation Nutrition/Malnutrition Findings: Nutrition Notes Start: 11/20/20 12:03 Freq: Status: Active Protocol: Document 12/21/20 12:15 (Rec: 12/21/20 12:25 [email or web address]) Nutrition Notes Initial or Follow up Reassessment Current Diagnosis Diabetes,Sepsis,Respiratory Failure Other Pertinent Diagnosis Bilat pneu, COVID-19 (+) Current Diet Glucerna 1.2 at 60 ml/hr Labs/Tests Na 132 BG 207 Pertinent Medications Propofol Levophed Prednisone Senokot S Height 5 ft 6 in Weight 81.3 kg [place] Body Weight (kg) 64.54 BMI 28.9 Weight Status Overweight Subjective/Other Information FU for TF tolerance. Pt tolerating TF at goal. MD to increase Percent of energy/protein needs met: 100%/100% Burn Absent Trauma Absent GI Symptoms Last BM Difficulty In Swallowing,Chewing Current % PO Negligible Minimum of two criteria Yes Energy Intake (severe) < or equal to 50% Estimated Energy Requirement > or equal to 5 days Interpretation of Weight Loss (severe) >2% in 1 week Fluid Accumulation Moderate to Severe (severe) #3 Nutrition Diagnosis Inadequate oral intake Diagnosis Progress(for reassessment Continues documentation) #2 Nutrition Diagnosis Malnutrition Diagnosis Progress(for reassessment Continues documentation) #1 Nutrition Diagnosis Unintended weight loss Diagnosis Progress(for reassessment Continues documentation) Is patient on ventilator? Yes Is Patient Ambulatory and/or Out of Bed No REE-([facility]-confined to bed) 1895.496 Kcal/Kg value to use for calculation 22 Approximate Energy Requirements Using 1789 kcal/Kg Calculation [facility] Additional Notes Protein: 87-145 g/day (1.2-2g/ kg) Fluid: 1ml/kcal or per MD Nutrition Intervention Change Diet Order: Continue TF Nutrition Support: Glucerna 1.2 at 65 ml/hr. Flush 125 ml q4h Kcal 1,872 Protein (gm) 93 Fluid (mL) 1,255 Goal #1 Meet at least 75% of energy and protein needs via TF Goal #2 TF tolerance Anticipated Discharge Needs: Unable to determine at this time Follow-Up By: 12/25/20 Additional Comments FU for TF tolerance, BM
[2020-12-23] MEDS: ENOXAPARIN 40 MG/0.4 ML INJ SUB-Q SCH (21:24)
[2020-12-23] MEDS: INSULIN GLARGINE 100 UNITS/ML SUB-Q SCH (21:25)
[2020-12-24] MEDS: ACETAMINOPHEN 325 MG TAB PO PRN ×3 (02:29→14:06)
[2020-12-24] MEDS: fentaNYL DRIP Premix 2,000 MCG/100 ML BAG IV SCH ×3 (03:23→17:54)
--- NOTE | 2020-12-24 04:30 | XRay Report ---
CHEST 1 VIEW 12/24/2020 3:16 AM INDICATION / CLINICAL INFORMATION: vent, b/l chest tubes. COMPARISON: 12/17/2020 FINDINGS: SUPPORT DEVICES: Satisfactory position. HEART / MEDIASTINUM: No significant abnormality. LUNGS / PLEURA: Persistent bilateral opacity greatest at the bases. Findings are mildly worsened. Dec reasing aeration left base. ADDITIONAL FINDINGS: No significant additional findings. IMPRESSION: Mild interval worsening. Signer Name: Shabbir Boss MD Signed: 12/24/2020 4:26 AM Workstation Name: [id number]
[2020-12-24] MEDS: INSULIN LISPRO 100 UNIT/ML SUB-Q SCH ×4 (06:04→19:43)
[2020-12-24] MEDS: SENNOSIDES/DOCUSATE SODIUM 8.6/50 MG TAB PO SCH ×3 (07:04→23:25)
[2020-12-24] MEDS: FAMOTIDINE 20 MG TAB PO SCH ×2 (09:03→23:24)
[2020-12-24] MEDS: DOCUSATE SODIUM 100 MG/10 ML ORAL LIQD PO SCH ×2 (09:03→23:25)
[2020-12-24] MEDS: POLYETHYLENE GLYCOL 3350 17 GM POWDER PO SCH (09:03)
[2020-12-24] MEDS: AMPICILLIN/NS 2 GM/100 ML 2 GM/100 ML BAG IV SCH ×4 (09:04→23:24)
--- NOTE | 2020-12-24 11:37 | Progress Note ---
Assessment and Plan Cultures: SARS CoV-2 PCR: positive Blood culture: No growth 11/21/2020 tracheal aspirate culture: MRSA 12/09/2020 blood culture: no growth 12/09/2020 sputum culture: Klebsiella 12/17/2020 blood culture: 1 bottle with coag negative staph, second bottle with Enterococcus faecalis 12/17/2020 tracheal aspirate culture: Usual respiratory zachariah 12/21/2020 blood culture: No growth A/P: 59-year-old male with: #Shock: multifactorial. #GPC bacteremia: source unclear. Typically, Enterococcus is not considered a contaminant, however only present in 1 out of 4 bottles while another set is growing coag negative staph. #Bilateral pneumonia: secondary to COVID-19. Completed abx, remdesivir. #Klebsiella on ET aspirate culture: ?colonization v/s true disease, difficult to differentiate. Will treat given development of low-grade temperatures and white count. #B/L pneumothorax and pneumomediastinum: s/p chest tubes. #Acute hypoxic respiratory failure: Remains on the vent. #Elevated d-dimer: DVT scan negative. Was unable to get CTA Chest due to patients unstable clinical status #Transaminitis: secondary to COVID-19. Recs: -repeat blood cultures are negative, would complete 14 days of ampicillin ending 01/04/2021 -monitor intermittent fevers, may need to re-culture if febrile again -very poor prognosis, consider DNR status Dayday Driscoll MD, FACP [facility] ([facility] O: [phone] F: [phone] Subjective Date of service: 12/24/20 Principal diagnosis: COVID-19 Interval history: Had one high fever. Remains on the vent with high requirements. Objective - Exam Narrative Exam: Physical Exam (reviewed in chart to minimize risk of transmission) Constitutional: deferred Head, Ears, Nose: deferred Eyes: deferred Neck: deferred Oral: deferred Cardiovascular: deferred Respiratory: deferred GI: deferred Musculoskeletal: deferred Skin: deferred Hem/Lymphatic: deferred Psych: deferred Neurological: deferred - Constitutional Vitals: Vital Signs Temp Pulse Resp BP Pulse Ox 99.0 F 87 30 H 100/55 96 12/24/20 04:00 12/24/20 11:15 12/24/20 11:15 12/24/20 11:15 12/24/20 11:15 Temperature -Last 24 Hours Temperature 99.0 F Temperature 99.8 F Temperature 102.0 F Temperature 99.3 F Temperature 98.8 F Temperature 100.2 F Temperature 98.2 F - Labs CBC & Chem 7: 12/20/20 04:00 12/23/20 06:07 Labs: Abnormal lab results 12/23/20 12/23/20 12/24/20 Range/Units 18:10 23:21 04:49 POC ABG pCO2 75.5 H (32.0-48.0) mmHg POC ABG pO2 50.5 L (83-108) mmHg ABG Hemoglobin 8.8 L (12.0-17.5) ABG Oxyhemoglobin 86.3 L (94-98) ABG Sodium 131.6 L (136.0-145.0) mmol/L ABG Chloride 88.0 L (98-107) mmol/L ABG Glucose 186 H (65-95) mg/dL Carboxyhemoglobin 2.1 H (0.5-1.5) POC Glucose 178 H 126 H (70-105) mg/dL Triglycerides (2-149) mg/dL Arterial Blood Glucose 186 H (65-95) mg/dL Arterial Blood Ionized Calcium 4.0 L (4.6-5.3) mg/dL 12/24/20 12/24/20 Range/Units 05:00 05:19 POC ABG pCO2 (32.0-48.0) mmHg POC ABG pO2 (83-108) mmHg ABG Hemoglobin (12.0-17.5) ABG Oxyhemoglobin (94-98) ABG Sodium (136.0-145.0) mmol/L ABG Chloride (98-107) mmol/L ABG Glucose (65-95) mg/dL Carboxyhemoglobin (0.5-1.5) POC Glucose 162 H (70-105) mg/dL Triglycerides 486 H (2-149) mg/dL Arterial Blood Glucose (65-95) mg/dL Arterial Blood Ionized Calcium (4.6-5.3) mg/dL
--- NOTE | 2020-12-24 11:54 | Progress Note ---
Assessment and Plan 59 y/o male with acute respiratory failure, abnormal CXR and abnormal lab studies. 12/24/20: If patient spikes again in the next 24 hours, please reculture urine and blood. In regards to cuff, as long as patient is not losing volumes, no indication to change tube out as of yet. Will continue to monitor. Continue abx as ID recs. Attempt to wean back down again but unfortunately this has been an ongoing issue for this patient. Continue pressors to help achieve adequate sedation for vent management. Prognosis remains guarded. 12/23/20: Continue current level of sedation. Wean parameters as listed below. appreciate ID recs and help. 12/22/20: Continue current level of sedation. Ok to wean FiO2 for sats >88% and PaO2>55mmHg. Follow up ID recs in regards to abx therapy. Prognosis unfortunately still remains guarded. 12/21/20: Back up to 100%. Peep is the same chest tubes intact. Long discussion on rounds, will restart Diprovan to obtain adequate sedation (RASS of -4). Ok to titrate pressors to achieve adequate sedation if blood pressure is compromised by sedatives. Prognosis remains guarded. Awaiting speciation of other cultures. 12/18/20: Still on 75% and 18 of PEEP. Follow up cultures, Blood pending, urine has not resulted yet. Had another temp at 20:00 last night. CXR looks more like pulmonary edema but not in a position to diurese at this time as he occasionally requires vasopressor support given the amount of sedation needed to achieve a RASS of 4. If he continues to spike, would consider hospital acquired coverage of abx therapy. Prognosis remains guarded. 12/17/20: Back down to 75%. Febrile last night, if and when spikes again today, please obtain blood cultures times 2 and urine. Will go ahead and order repeat CXR now. Prognosis still remains guarded. 12/16/20: Back up to 100%. Once stabilized will attempt to wean back down. ABG in the am and may need to consider repeat ABG later this afternoon pending clinical state. Unable to prone given bilateral chest tubes. Prognosis remains guarded to poor. 12/15/20: Tolerating weaning from yesterday. RT to attempt to wean some more today. Kidney function remains unchanged. Guarded prognosis. 12/14/20: Unable to wean FiO2 today. Continue supportive measures. Great that his kidney function has maintained but given the amount of oxygen he continues to require, his chances of recovery continue to decrease. Family aware and will up date them as needed. Very very guarded prognosis. 12/13/20: WIll start Weaning FiO2 again tomorrow morning of PaO2 remains this good. Continue all other supportive measures. Guarded prognosis. Monitor renal function closely. 12/12/20: Long discussion with brother at door. Patient remains full code which is not unreasonable but family is realistic about outcome being poor. Will continue all supportive measures. IF clinical state worsens, will ask family to come back to see patient. Guarded Prognosis. 12/11/20: Will attempt to wean Diprovan off and increase precedex. Triglycerides were ok. IF we have to support with pressors we will but I have asked nursing to please be detailed in their checkouts as to why they did certain things with the continuous drips. Continue supportive measures. Brother is going to try to come and see him from [place] 12/10/20: No acute events overnight. Patient has had waxing and waning of the amount of oxygen he has required over the last 24-72 hours. I have a bad feeling that he is on the brink of cardiac arrest and this could happen at any moment. I am going to reach out to the brother today to explain to him my concerns. Patient is a full code. Very very guarded prognosis. 12/09/20: Repeat ABG later today. Wean FiO2 for sats >88%. Repeat CXR as well. With BP dropping could be relative adrenal insufficiency, will watch for now, however if pressor requirement increases would consider stress dose steroids and maybe volume replacement. Follow up cultures. Guarded prognosis. 12/08/20: Increase TV to 425. Drop FiO2 to 65% and wean for sats >88%. COntinue chest tubes. Change steroids to 20q12. 12/07/20: CXR is stable, no indication for another chest tube at this time. Will repeat ABG in 1 hour post change to 70% and wean accordingly. Dropping steroids to 20q8. Guarded prognosis. Same weaning parameters apply today as of 12/04/20 12/04/20: Continue to wean steroids to off. Continue to wean FiO2 for sats >88%. Keep PEEP at current level, would not feel comfortable weaning PEEP until FiO2 at 35-40%. Continue chest tubes to suction. PaO2 of >55, pH of >7.2 and sats >88% are acceptable. : Dropped steroids down to 40q8 and will start to wean from there. Co ntinue to slowly wean FiO2 first, keep PEEP at current level. Spoke with Kehinde, please see my event note, who is the biological brother. He had no questions but thanked us for our care. Prognosis remains very very guarded. PaO2 of 55 and pH of >7.2 and sats of >88% are all acceptable. 12/02/20: Wean FiO2 for sats >88% and PaO2 >55. Unable to prone currently secondary to bilateral chest tubes. COntinue high dose steroids. CM To figure out who is the immediate next of kin that can make decisions and then we will discuss the current clinical situation with them. 12/01/20: Continue PEEP and FiO2 elevated to keep sats >88% and PaO2 >55. Small lung volumes and high PEEP. very very guarded prognosis. 11/30/20: Worsening hypoxemia. Chest tubes stable. Likely just worsening disease. Unable to prone now. Increase PEEP to 18 and FiO2 back up to 100. Continue 3 sedatives for RASS of -2. Obtain 12 lead to look at T waves as K was only 4.6 on yesterday. Guarded, guarded prognosis 11/29/20: Second chest tube in on yesterday. CXR is stable. ABG unchanged. Will likely increase PEEP now that chest tubes are in. No further paralytics. Still making good urine. Prognosis remains guarded. Will check chemistry to assess Potassium levels given peaked t's seen on monitor. 11/28/20: Second chest tube today. Once chest tube in, will likely increase PE EP to 18 and repeat gas about 2 hours after this. Continue paralytic today. No proning now that patient will have bilateral chest tubes. VEry guarded prognosis. 11/27/20: Spoke with surgery who have agreed to evaluate and placed chest tube on either right or left side pending CXR reading. Will monitor for 36-48 hours and if no resolution, will need chest tube placed on opposite side as well. Once placed, will likely paralyze again but hold on proning for now. Guarded prognosis. 11/26/20: Paralytics are off. Continue current level of sedation. Will prone for 12 hours today and repeat ABG in the am. Continue lung protective strategy. Guarded prognosis. 11/25/20: Prone again to 16 hours, will prone at 12-12:30. Continue paralytics for 24 more hours. Discussed the idea of permissive hypercapnea again today and as long as pH is above 7.2 no changes should be made to TV and or RR without discussing with physician. Continue to monitor urine output, guarded prognosis. Hold on lasix therapy today. 11/24/20: Prone again today. Will try 48 hours of paralyzing the patient to see if this will help with oxygenation. Will speak with RT's about permissive hypercapnea and that pH's of 7.2 and greater are ok. Continue high doses steroids. Prognosis is still very very guarded. If not improvement with paralytics, will attempt transfer. 11/23/20: Prone again today for 12 hours. Continue High Dose steroids. Hold on lasix given marginal BP's. Prognosis is very very guarded to poor. Will continue all supportive measures. If not able to wean from 100%, will attempt transfer for ECMO. 1. Pulm- Agree with concern for covid. Agree with empiric abx but procal is only mildly elevated. Await cultures. Continue bipap therapy for now but will need to monitor closely. [facility] has ordered CTA, but I spoke with pharmacy and we will empirically treat with BID lovenox therapy. COntinue empiric steroid therapy for COVID until studies back. Not sure that he will be able to prone on bipap therapy. Monitor volume status and run as dry as possible. 2. Renal-normal function but all electrolytes abnormal. HYponatremia and Hypochloremia volume up vs volume down. Sent BNP. Would suggest obtaning echo as well. Not sure what to make of elevated lactate unless that is from increased work of breathing or damage to other tissue unknown. May need to check LFT's and Coags as well. 3. Guarded Prognosis. CCT 31 minutes. Subjective Date of service: 12/24/20 Principal diagnosis: COVID-19 Interval history: Febrile again last night. Treated with tylenol and ice then fever broke. Last cultures were on 12/21 and those are negative. Currently on a 14 day run of ampicillin. Remains sedated but had to go back up to 100%. Some cuff issues on yesterday but those do not seem to be present today. Remainder is negative. Objective Vital Signs - 12hr 12/23/20 12/23/20 12/23/20 23:53 23:54 23:59 Temperature Pulse Rate 126 H 124 H 122 H Respiratory 30 H Rate Blood Pressure 132/61 116/64 O2 Sat by Pulse 92 93 Oximetry 12/24/20 12/24/20 12/24/20 00:00 00:15 00:30 Temperature 99.3 F Pulse Rate 120 H 116 H 113 H Respiratory 30 H 30 H 29 H Rate Blood Pressure 116/64 114/60 115/58 O2 Sat by Pulse 93 94 95 Oximetry 12/24/20 12/24/20 12/24/20 00:45 01:00 01:15 Temperature Pulse Rate 111 H 112 H 110 H Respiratory 30 H 30 H 30 H Rate Blood Pressure 111/59 114/59 112/61 O2 Sat by Pulse 94 95 95 Oximetry 12/24/20 12/24/20 12/24/20 01:30 01:45 02:00 Temperature 102.0 F H Pulse Rate 110 H 109 H 108 H Respiratory 30 H 30 H 30 H Rate Blood Pressure 115/60 119/63 123/66 O2 Sat by Pulse 95 95 95 Oximetry 12/24/20 12/24/20 12/24/20 02:15 02:30 02:45 Temperature Pulse Rate 134 H 115 H 112 H Respiratory 12 30 H 30 H Rate Blood Pressure 123/66 117/62 112/59 O2 Sat by Pulse 81 L 93 91 Oximetry 12/24/20 12/24/20 12/24/20 03:00 03:15 03:30 Temperature Pulse Rate 108 H 107 H 102 H Respiratory 30 H 29 H 30 H Rate Blood Pressure 110/57 103/55 95/48 O2 Sat by Pulse 92 94 94 Oximetry 12/24/20 12/24/20 12/24/20 03:45 04:00 04:15 Temperature 99.0 F Pulse Rate 94 H 89 90 Respiratory 29 H 29 H 29 H Rate Blood Pressure 100/50 100/56 96/55 O2 Sat by Pulse 95 95 97 Oximetry 12/24/20 12/24/20 12/24/20 04:31 04:45 05:01 Temperature Pulse Rate 87 81 Respiratory 14 14 Rate Blood Pressure 96/55 96/55 88/45 O2 Sat by Pulse 94 Oximetry 12/24/20 12/24/20 12/24/20 05:10 05:15 05:30 Temperature Pulse Rate 83 81 80 Respiratory 11 L 11 L Rate Blood Pressure 88/45 104/54 98/54 O2 Sat by Pulse 93 94 94 Oximetry 12/24/20 12/24/20 12/24/20 05:45 06:00 06:15 Temperature Pulse Rate 76 73 77 Respiratory 17 7 L 5 L Rate Blood Pressure 100/55 100/55 97/51 O2 Sat by Pulse 94 94 93 Oximetry 12/24/20 12/24/20 12/24/20 06:30 06:45 07:00 Temperature Pulse Rate 73 77 74 Respiratory 0 L 30 H 30 H Rate Blood Pressure 103/54 96/50 99/53 O2 Sat by Pulse 94 93 94 Oximetry 12/24/20 12/24/20 12/24/20 07:15 07:30 07:45 Temperature Pulse Rate 76 76 77 Respiratory 30 H 30 H 30 H Rate Blood Pressure 99/54 96/53 95/52 O2 Sat by Pulse 94 93 94 Oximetry 12/24/20 12/24/20 12/24/20 08:00 08:15 08:30 Temperature Pulse Rate 90 87 83 Respiratory 30 H 30 H 30 H Rate Blood Pressure 98/52 105/57 99/54 O2 Sat by Pulse 92 92 95 Oximetry 12/24/20 12/24/20 12/24/20 08:39 08:45 09:00 Temperature Pulse Rate 83 86 85 Respiratory 30 H 30 H Rate Blood Pressure 99/54 108/58 101/53 O2 Sat by Pulse 95 91 95 Oximetry 12/24/20 12/24/20 12/24/20 09:15 09:30 09:45 Temperature Pulse Rate 86 94 H 89 Respiratory 30 H 30 H 30 H Rate Blood Pressure 103/54 103/54 104/55 O2 Sat by Pulse 95 96 95 Oximetry 12/24/20 12/24/20 12/24/20 10:00 10:15 10:30 Temperature Pulse Rate 90 86 85 Respiratory 30 H 30 H 30 H Rate Blood Pressure 104/53 100/57 96/52 O2 Sat by Pulse 95 96 95 Oximetry 12/24/20 12/24/20 12/24/20 10:45 11:00 11:15 Temperature Pulse Rate 86 85 87 Respiratory 30 H 30 H 30 H Rate Blood Pressure 96/57 103/58 100/55 O2 Sat by Pulse 96 95 96 Oximetry Constitutional: other (on vent orally intubated) ENT: other (Now intubated) Ascultation: Bilateral: rales, rhonchi, other (coarse BS bilaterally) Percussion: Bilateral: not dull Cardiovascular: regular rate and rhythm (no mrg) Gastrointestinal: normoactive bowel sounds, soft, non-tender, non-distended Integumentary: normal Extremities: no cyanosis, no edema, pink and warm Neurologic: other (sedated) Psychiatric: other (sedated) CBC and BMP: 12/20/20 04:00 12/23/20 06:07 ABG, PT/INR, D-dimer: ABG ABG pH 7.414 (7.320-7.450) 12/24/20 04:49 POC ABG pCO2 75.5 mmHg (32.0-48.0) H 12/24/20 04:49 ABG pCO2 81.3 mm Hg 12/08/20 04:12 POC ABG pO2 50.5 mmHg (83-108) L 12/24/20 04:49 ABG pO2 69.7 mm Hg (80.0-90.0) L 12/08/20 04:12 POC ABG HCO3 47.2 12/24/20 04:49 ABG O2 Saturation 88.4 (0-100) 12/24/20 04:49 PT/INR, D-dimer D-Dimer 926.11 ng/mlDDU (0-234) H 11/26/20 06:04 Abnormal lab findings: Abnormal Labs 11/15/20 11/15/20 11/15/20 10:39 10:39 10:39 WBC 14.3 H RBC 5.17 H Hgb Hct RDW Plt Count Lymph % (Auto) 7.8 L [place] % (Auto) 7.6 H Lymph # (Auto) 1.1 L [place] # (Auto) 1.1 H Baso # (Auto) Seg Neutrophils % 83.3 H Seg Neuts % (Manual) Lymphocytes % (Manual) Seg Neutrophils # 11.9 H Seg Neutrophils # Man Lymphocytes # (Manual) D-Dimer ABG pH POC ABG pCO2 POC ABG pO2 ABG pO2 ABG HCO3 ABG O2 Saturation ABG Base Excess ABG Hemoglobin ABG Oxyhemoglobin ABG Sodium ABG Potassium ABG Chloride ABG Glucose Oxyhemoglobin Carboxyhemoglobin Sodium 128 L Potassium Chloride 96.0 L Carbon Dioxide BUN Creatinine 0.7 L Glucose 238 H POC Glucose Hemoglobin A1c Lactic Acid 4.10 H* Calcium 7.0 L Magnesium Ferritin Total Bilirubin 1.40 H AST 49 H ALT 70 H Alkaline Phosphatase Lactate Dehydrogenase 663 H Total Creatine Kinase C-Reactive Protein 19.80 H Total Protein Albumin 2.9 L Triglycerides Arterial Blood Glucose Arterial Blood Ionized Calcium Ur Specific [place] Urine WBC (Auto) Vancomycin Trough Coronavirus (PCR) 11/15/20 11/15/20 11/15/20 10:39 10:39 11:20 WBC RBC Hgb Hct RDW Plt Count Lymph % (Auto) [place] % (Auto) Lymph # (Auto) [place] # (Auto) Baso # (Auto) Seg Neutrophils % Seg Neuts % (Manual) Lymphocytes % (Manual) Seg Neutrophils # Seg Neutrophils # Man Lymphocytes # (Manual) D-Dimer > 05796 H ABG pH POC ABG pCO2 29.9 L POC ABG pO2 137.3 H ABG pO2 ABG HCO3 ABG O2 Saturation ABG Base Excess ABG Hemoglobin ABG Oxyhemoglobin ABG Sodium 126.5 L ABG Potassium ABG Chloride ABG Glucose 248 H Oxyhemoglobin Carboxyhemoglobin Sodium Potassium Chloride Carbon Dioxide BUN Creatinine Glucose POC Glucose Hemoglobin A1c Lactic Acid Calcium Magnesium Ferritin 672.8 H Total Bilirubin AST ALT Alkaline Phosphatase Lactate Dehydrogenase Total Creatine Kinase C-Reactive Protein Total Protein Albumin Triglycerides Arterial Blood Glucose 248 H Arterial Blood Ionized Calcium 4.1 L Ur Specific [place] Urine WBC (Auto) Vancomycin Trough Coronavirus (PCR) 11/15/20 11/15/20 11/16/20 13:41 23:41 01:45 WBC RBC Hgb Hct RDW Plt Count Lymph % (Auto) [place] % (Auto) Lymph # (Auto) [place] # (Auto) Baso # (Auto) Seg Neutrophils % Seg Neuts % (Manual) Lymphocytes % (Manual) Seg Neutrophils # Seg Neutrophils # Man Lymphocytes # (Manual) D-Dimer ABG pH POC ABG pCO2 POC ABG pO2 ABG pO2 ABG HCO3 ABG O2 Saturation ABG Base Excess ABG Hemoglobin ABG Oxyhemoglobin ABG Sodium ABG Potassium ABG Chloride ABG Glucose Oxyhemoglobin Carboxyhemoglobin Sodium Potassium Chloride Carbon Dioxide BUN Creatinine Glucose POC Glucose 284 H Hemoglobin A1c Lactic Acid 2.30 H* Calcium Magnesium Ferritin Total Bilirubin AST ALT Alkaline Phosphatase Lactate Dehydrogenase Total Creatine Kinase C-Reactive Protein Total Protein Albumin Triglycerides Arterial Blood Glucose Arterial Blood Ionized Calcium Ur Specific [place] 1.037 H Urine WBC (Auto) Vancomycin Trough Coronavirus (PCR) 11/16/20 11/16/20 11/16/20 05:29 05:29 05:29 WBC 12.9 H RBC Hgb Hct RDW Plt Count Lymph % (Auto) 4.5 L [place] % (Auto) Lymph # (Auto) 0.6 L [place] # (Auto) Baso # (Auto) 0.2 H Seg Neutrophils % 89.8 H Seg Neuts % (Manual) Lymphocytes % (Manual) Seg Neutrophils # 11.5 H Seg Neutrophils # Man Lymphocytes # (Manual) D-Dimer ABG pH POC ABG pCO2 POC ABG pO2 ABG pO2 ABG HCO3 ABG O2 Saturation ABG Base Excess ABG Hemoglobin ABG Oxyhemoglobin ABG Sodium ABG Potassium ABG Chloride ABG Glucose Oxyhemoglobin Carboxyhemoglobin Sodium 131 L Potassium Chloride Carbon Dioxide 21 L BUN 23 H Creatinine 0.6 L Glucose 342 H POC Glucose Hemoglobin A1c Lactic Acid 2.60 H* Calcium 7.0 L Magnesium Ferritin Total Bilirubin AST ALT Alkaline Phosphatase Lactate Dehydrogenase Total Creatine Kinase C-Reactive Protein Total Protein Albumin 2.4 L Triglycerides Arterial Blood Glucose Arterial Blood Ionized Calcium Ur Specific [place] Urine WBC (Auto) Vancomycin Trough Coronavirus (PCR) 11/16/20 11/16/20 11/16/20 05:29 08:11 12:11 WBC RBC Hgb Hct RDW Plt Count Lymph % (Auto) [place] % (Auto) Lymph # (Auto) [place] # (Auto) Baso # (Auto) Seg Neutrophils % Seg Neuts % (Manual) Lymphocytes % (Manual) Seg Neutrophils # Seg Neutrophils # Man Lymphocytes # (Manual) D-Dimer ABG pH POC ABG pCO2 POC ABG pO2 ABG pO2 ABG HCO3 ABG O2 Saturation ABG Base Excess ABG Hemoglobin ABG Oxyhemoglobin ABG Sodium ABG Potassium ABG Chloride ABG Glucose Oxyhemoglobin Carboxyhemoglobin Sodium Potassium Chloride Carbon Dioxide BUN Creatinine Glucose POC Glucose 329 H 320 H Hemoglobin A1c 11.7 H Lactic Acid Calcium Magnesium Ferritin Total Bilirubin AST ALT Alkaline Phosphatase Lactate Dehydrogenase Total Creatine Kinase C-Reactive Protein Total Protein Albumin Triglycerides Arterial Blood Glucose Arterial Blood Ionized Calcium Ur Specific [place] Urine WBC (Auto) Vancomycin Trough Coronavirus (PCR) 11/16/20 11/16/20 11/16/20 16:13 21:29 Unknown WBC RBC Hgb Hct RDW Plt Count Lymph % (Auto) [place] % (Auto) Lymph # (Auto) [place] # (Auto) Baso # (Auto) Seg Neutrophils % Seg Neuts % (Manual) Lymphocytes % (Manual) Seg Neutrophils # Seg Neutrophils # Man Lymphocytes # (Manual) D-Dimer ABG pH POC ABG pCO2 POC ABG pO2 ABG pO2 ABG HCO3 ABG O2 Saturation ABG Base Excess ABG Hemoglobin ABG Oxyhemoglobin ABG Sodium ABG Potassium ABG Chloride ABG Glucose Oxyhemoglobin Carboxyhemoglobin Sodium Potassium Chloride Carbon Dioxide BUN Creatinine Glucose POC Glucose 257 H 376 H Hemoglobin A1c Lactic Acid Calcium Magnesium Ferritin Total Bilirubin AST ALT Alkaline Phosphatase Lactate Dehydrogenase Total Creatine Kinase C-Reactive Protein Total Protein Albumin Triglycerides Arterial Blood Glucose Arterial Blood Ionized Calcium Ur Specific [place] Urine WBC (Auto) Vancomycin Trough Coronavirus (PCR) Positive A 11/17/20 11/17/20 11/17/20 07:42 12:07 17:25 WBC RBC Hgb Hct RDW Plt Count Lymph % (Auto) [place] % (Auto) Lymph # (Auto) [place] # (Auto) Baso # (Auto) Seg Neutrophils % Seg Neuts % (Manual) Lymphocytes % (Manual) Seg Neutrophils # Seg Neutrophils # Man Lymphocytes # (Manual) D-Dimer ABG pH POC ABG pCO2 POC ABG pO2 ABG pO2 ABG HCO3 ABG O2 Saturation ABG Base Excess ABG Hemoglobin ABG Oxyhemoglobin ABG Sodium ABG Potassium ABG Chloride ABG Glucose Oxyhemoglobin Carboxyhemoglobin Sodium Potassium Chloride Carbon Dioxide BUN Creatinine Glucose POC Glucose 231 H 380 H 302 H Hemoglobin A1c Lactic Acid Calcium Magnesium Ferritin Total Bilirubin AST ALT Alkaline Phosphatase Lactate Dehydrogenase Total Creatine Kinase C-Reactive Protein Total Protein Albumin Triglycerides Arterial Blood Glucose Arterial Blood Ionized Calcium Ur Specific [place] Urine WBC (Auto) Vancomycin Trough Coronavirus (PCR) 11/17/20 11/18/20 11/18/20 21:53 04:25 07:45 WBC RBC Hgb Hct RDW Plt Count Lymph % (Auto) [place] % (Auto) Lymph # (Auto) [place] # (Auto) Baso # (Auto) Seg Neutrophils % Seg Neuts % (Manual) Lymphocytes % (Manual) Seg Neutrophils # Seg Neutrophils # Man Lymphocytes # (Manual) D-Dimer ABG pH POC ABG pCO2 POC ABG pO2 ABG pO2 ABG HCO3 ABG O2 Saturation ABG Base Excess ABG Hemoglobin ABG Oxyhemoglobin ABG Sodium ABG Potassium ABG Chloride ABG Glucose Oxyhemoglobin Carboxyhemoglobin Sodium 136 L Potassium Chloride Carbon Dioxide BUN 24 H Creatinine 0.6 L Glucose 212 H POC Glucose 293 H 216 H Hemoglobin A1c Lactic Acid Calcium 7.4 L Magnesium Ferritin Total Bilirubin AST 41 H ALT Alkaline Phosphatase 142 H Lactate Dehydrogenase Total Creatine Kinase C-Reactive Protein Total Protein Albumin 2.3 L Triglycerides Arterial Blood Glucose Arterial Blood Ionized Calcium Ur Specific [place] Urine WBC (Auto) Vancomycin Trough Coronavirus (PCR) 11/18/20 11/18/20 11/18/20 12:28 15:58 21:37 WBC RBC Hgb Hct RDW Plt Count Lymph % (Auto) [place] % (Auto) Lymph # (Auto) [place] # (Auto) Baso # (Auto) Seg Neutrophils % Seg Neuts % (Manual) Lymphocytes % (Manual) Seg Neutrophils # Seg Neutrophils # Man Lymphocytes # (Manual) D-Dimer ABG pH POC ABG pCO2 POC ABG pO2 ABG pO2 ABG HCO3 ABG O2 Saturation ABG Base Excess ABG Hemoglobin ABG Oxyhemoglobin ABG Sodium ABG Potassium ABG Chloride ABG Glucose Oxyhemoglobin Carboxyhemoglobin Sodium Potassium Chloride Carbon Dioxide BUN Creatinine Glucose POC Glucose 165 H 220 H 311 H Hemoglobin A1c Lactic Acid Calcium Magnesium Ferritin Total Bilirubin AST ALT Alkaline Phosphatase Lactate Dehydrogenase Total Creatine Kinase C-Reactive Protein Total Protein Albumin Triglycerides Arterial Blood Glucose Arterial Blood Ionized Calcium Ur Specific [place] Urine WBC (Auto) Vancomycin Trough Coronavirus (PCR) 11/19/20 11/19/20 11/19/20 05:35 07:40 12:39 WBC RBC Hgb Hct RDW Plt Count Lymph % (Auto) [place] % (Auto) Lymph # (Auto) [place] # (Auto) Baso # (Auto) Seg Neutrophils % Seg Neuts % (Manual) Lymphocytes % (Manual) Seg Neutrophils # Seg Neutrophils # Man Lymphocytes # (Manual) D-Dimer ABG pH POC ABG pCO2 POC ABG pO2 ABG pO2 ABG HCO3 ABG O2 Saturation ABG Base Excess ABG Hemoglobin ABG Oxyhemoglobin ABG Sodium ABG Potassium ABG Chloride ABG Glucose Oxyhemoglobin Carboxyhemoglobin Sodium 132 L Potassium Chloride Carbon Dioxide BUN 25 H Creatinine 0.5 L Glucose 179 H POC Glucose 149 H 306 H Hemoglobin A1c Lactic Acid Calcium 7.5 L Magnesium Ferritin Total Bilirubin AST ALT Alkaline Phosphatase 139 H Lactate Dehydrogenase Total Creatine Kinase C-Reactive Protein Total Protein Albumin 2.4 L Triglycerides Arterial Blood Glucose Arterial Blood Ionized Calcium Ur Specific [place] Urine WBC (Auto) Vancomycin Trough Coronavirus (PCR) 11/19/20 11/19/20 11/20/20 16:17 21:25 08:30 WBC RBC Hgb Hct RDW Plt Count Lymph % (Auto) [place] % (Auto) Lymph # (Auto) [place] # (Auto) Baso # (Auto) Seg Neutrophils % Seg Neuts % (Manual) Lymphocytes % (Manual) Seg Neutrophils # Seg Neutrophils # Man Lymphocytes # (Manual) D-Dimer ABG pH POC ABG pCO2 POC ABG pO2 ABG pO2 ABG HCO3 ABG O2 Saturation ABG Base Excess ABG Hemoglobin ABG Oxyhemoglobin ABG Sodium ABG Potassium ABG Chloride ABG Glucose Oxyhemoglobin Carboxyhemoglobin Sodium Potassium Chloride Carbon Dioxide BUN Creatinine Glucose POC Glucose 364 H 347 H 141 H Hemoglobin A1c Lactic Acid Calcium Magnesium Ferritin Total Bilirubin AST ALT Alkaline Phosphatase Lactate Dehydrogenase Total Creatine Kinase C-Reactive Protein Total Protein Albumin Triglycerides Arterial Blood Glucose Arterial Blood Ionized Calcium Ur Specific [place] Urine WBC (Auto) Vancomycin Trough Coronavirus (PCR) 11/20/20 11/20/20 11/20/20 08:50 11:32 16:19 WBC RBC Hgb Hct RDW Plt Count Lymph % (Auto) [place] % (Auto) Lymph # (Auto) [place] # (Auto) Baso # (Auto) Seg Neutrophils % Seg Neuts % (Manual) Lymphocytes % (Manual) Seg Neutrophils # Seg Neutrophils # Man Lymphocytes # (Manual) D-Dimer ABG pH POC ABG pCO2 POC ABG pO2 ABG pO2 ABG HCO3 ABG O2 Saturation ABG Base Excess ABG Hemoglobin ABG Oxyhemoglobin ABG Sodium ABG Potassium ABG Chloride ABG Glucose Oxyhemoglobin Carboxyhemoglobin Sodium 132 L Potassium Chloride 97.6 L Carbon Dioxide BUN 26 H Creatinine 0.5 L Glucose 201 H POC Glucose 296 H 327 H Hemoglobin A1c Lactic Acid Calcium 7.9 L Magnesium Ferritin Total Bilirubin AST ALT Alkaline Phosphatase 137 H Lactate Dehydrogenase Total Creatine Kinase C-Reactive Protein Total Protein Albumin 2.6 L Triglycerides Arterial Blood Glucose Arterial Blood Ionized Calcium Ur Specific [place] Urine WBC (Auto) Vancomycin Trough Coronavirus (PCR) 11/20/20 11/21/20 11/21/20 22:09 07:59 13:51 WBC RBC Hgb Hct RDW Plt Count Lymph % (Auto) [place] % (Auto) Lymph # (Auto) [place] # (Auto) Baso # (Auto) Seg Neutrophils % Seg Neuts % (Manual) Lymphocytes % (Manual) Seg Neutrophils # Seg Neutrophils # Man Lymphocytes # (Manual) D-Dimer ABG pH POC ABG pCO2 POC ABG pO2 ABG pO2 ABG HCO3 ABG O2 Saturation ABG Base Excess ABG Hemoglobin ABG Oxyhemoglobin ABG Sodium ABG Potassium ABG Chloride ABG Glucose Oxyhemoglobin Carboxyhemoglobin Sodium Potassium Chloride Carbon Dioxide BUN Creatinine Glucose POC Glucose 311 H 218 H 304 H Hemoglobin A1c Lactic Acid Calcium Magnesium Ferritin Total Bilirubin AST ALT Alkaline Phosphatase Lactate Dehydrogenase Total Creatine Kinase C-Reactive Protein Total Protein Albumin Triglycerides Arterial Blood Glucose Arterial Blood Ionized Calcium Ur Specific [place] Urine WBC (Auto) Vancomycin Trough Coronavirus (PCR) 11/21/20 11/21/20 11/21/20 16:09 21:34 23:00 WBC RBC Hgb Hct RDW Plt Count Lymph % (Auto) [place] % (Auto) Lymph # (Auto) [place] # (Auto) Baso # (Auto) Seg Neutrophils % Seg Neuts % (Manual) Lymphocytes % (Manual) Seg Neutrophils # Seg Neutrophils # Man Lymphocytes # (Manual) D-Dimer ABG pH 7.206 L POC ABG pCO2 59.3 H POC ABG pO2 76.7 L ABG pO2 ABG HCO3 ABG O2 Saturation ABG Base Excess ABG Hemoglobin ABG Oxyhemoglobin ABG Sodium 133.1 L ABG Potassium ABG Chloride ABG Glucose 320 H Oxyhemoglobin Carboxyhemoglobin Sodium Potassium Chloride Carbon Dioxide BUN Creatinine Glucose POC Glucose 239 H 279 H Hemoglobin A1c Lactic Acid Calcium Magnesium Ferritin Total Bilirubin AST ALT Alkaline Phosphatase Lactate Dehydrogenase Total Creatine Kinase C-Reactive Protein Total Protein Albumin Triglycerides Arterial Blood Glucose 320 H Arterial Blood Ionized Calcium Ur Specific [place] Urine WBC (Auto) Vancomycin Trough Coronavirus (PCR) 11/22/20 11/22/20 11/22/20 04:52 04:52 04:52 WBC RBC Hgb Hct RDW Plt Count Lymph % (Auto) [place] % (Auto) Lymph # (Auto) [place] # (Auto) Baso # (Auto) Seg Neutrophils % Seg Neuts % (Manual) Lymphocytes % (Manual) Seg Neutrophils # Seg Neutrophils # Man Lymphocytes # (Manual) D-Dimer 1858.36 H ABG pH POC ABG pCO2 POC ABG pO2 ABG pO2 ABG HCO3 ABG O2 Saturation ABG Base Excess ABG Hemoglobin ABG Oxyhemoglobin ABG Sodium ABG Potassium ABG Chloride ABG Glucose Oxyhemoglobin Carboxyhemoglobin Sodium Potassium Chloride Carbon Dioxide BUN Creatinine Glucose POC Glucose Hemoglobin A1c Lactic Acid Calcium Magnesium Ferritin 734.2 H Total Bilirubin AST ALT Alkaline Phosphatase Lactate Dehydrogenase 404 H Total Creatine Kinase C-Reactive Protein 2.80 H Total Protein Albumin Triglycerides Arterial Blood Glucose Arterial Blood Ionized Calcium Ur Specific [place] Urine WBC (Auto) Vancomycin Trough Coronavirus (PCR) 11/22/20 11/22/20 11/22/20 05:12 05:39 11:50 WBC RBC Hgb Hct RDW Plt Count Lymph % (Auto) [place] % (Auto) Lymph # (Auto) [place] # (Auto) Baso # (Auto) Seg Neutrophils % Seg Neuts % (Manual) Lymphocytes % (Manual) Seg Neutrophils # Seg Neutrophils # Man Lymphocytes # (Manual) D-Dimer ABG pH POC ABG pCO2 POC ABG pO2 51.0 L ABG pO2 ABG HCO3 ABG O2 Saturation ABG Base Excess ABG Hemoglobin ABG Oxyhemoglobin ABG Sodium 131.2 L ABG Potassium 4.6 H ABG Chloride ABG Glucose 317 H Oxyhemoglobin Carboxyhemoglobin Sodium Potassium Chloride Carbon Dioxide BUN Creatinine Glucose POC Glucose 340 H 417 H Hemoglobin A1c Lactic Acid Calcium Magnesium Ferritin Total Bilirubin AST ALT Alkaline Phosphatase Lactate Dehydrogenase Total Creatine Kinase C-Reactive Protein Total Protein Albumin Triglycerides Arterial Blood Glucose 317 H Arterial Blood Ionized Calcium 4.4 L Ur Specific [place] Urine WBC (Auto) Vancomycin Trough Coronavirus (PCR) 11/22/20 11/22/20 11/22/20 12:22 12:22 17:10 WBC 14.4 H RBC Hgb Hct RDW Plt Count Lymph % (Auto) [place] % (Auto) Lymph # (Auto) [place] # (Auto) Baso # (Auto) Seg Neutrophils % Seg Neuts % (Manual) 98.0 H Lymphocytes % (Manual) Seg Neutrophils # Seg Neutrophils # Man 14.1 H Lymphocytes # (Manual) 0.0 L D-Dimer ABG pH POC ABG pCO2 POC ABG pO2 ABG pO2 ABG HCO3 ABG O2 Saturation ABG Base Excess ABG Hemoglobin ABG Oxyhemoglobin ABG Sodium ABG Potassium ABG Chloride ABG Glucose Oxyhemoglobin Carboxyhemoglobin Sodium 132 L Potassium Chloride Carbon Dioxide BUN 36 H Creatinine 0.6 L Glucose 219 H POC Glucose 157 H Hemoglobin A1c Lactic Acid Calcium 7.2 L Magnesium Ferritin Total Bilirubin AST ALT Alkaline Phosphatase Lactate Dehydrogenase Total Creatine Kinase C-Reactive Protein Total Protein Albumin Triglycerides Arterial Blood Glucose Arterial Blood Ionized Calcium Ur Specific [place] Urine WBC (Auto) Vancomycin Trough Coronavirus (PCR) 11/22/20 11/22/20 11/22/20 18:33 21:44 23:47 WBC RBC Hgb Hct RDW Plt Count Lymph % (Auto) [place] % (Auto) Lymph # (Auto) [place] # (Auto) Baso # (Auto) Seg Neutrophils % Seg Neuts % (Manual) Lymphocytes % (Manual) Seg Neutrophils # Seg Neutrophils # Man Lymphocytes # (Manual) D-Dimer ABG pH POC ABG pCO2 POC ABG pO2 60.8 L ABG pO2 ABG HCO3 ABG O2 Saturation ABG Base Excess ABG Hemoglobin ABG Oxyhemoglobin 88.1 L ABG Sodium 135.1 L ABG Potassium ABG Chloride ABG Glucose 141 H Oxyhemoglobin Carboxyhemoglobin Sodium Potassium Chloride Carbon Dioxide BUN Creatinine Glucose POC Glucose 117 H 123 H Hemoglobin A1c Lactic Acid Calcium Magnesium Ferritin Total Bilirubin AST ALT Alkaline Phosphatase Lactate Dehydrogenase Total Creatine Kinase C-Reactive Protein Total Protein Albumin Triglycerides Arterial Blood Glucose 141 H Arterial Blood Ionized Calcium Ur Specific [place] Urine WBC (Auto) Vancomycin Trough Coronavirus (PCR) 11/23/20 11/23/20 11/23/20 04:00 04:00 05:23 WBC 14.4 H RBC Hgb Hct RDW Plt Count Lymph % (Auto) [place] % (Auto) Lymph # (Auto) [place] # (Auto) Baso # (Auto) Seg Neutrophils % Seg Neuts % (Manual) Lymphocytes % (Manual) Seg Neutrophils # Seg Neutrophils # Man Lymphocytes # (Manual) D-Dimer ABG pH POC ABG pCO2 POC ABG pO2 ABG pO2 ABG HCO3 ABG O2 Saturation ABG Base Excess ABG Hemoglobin ABG Oxyhemoglobin ABG Sodium ABG Potassium ABG Chloride ABG Glucose Oxyhemoglobin Carboxyhemoglobin Sodium 136 L Potassium Chloride Carbon Dioxide BUN 33 H Creatinine 0.6 L Glucose 115 H POC Glucose 173 H Hemoglobin A1c Lactic Acid Calcium 7.1 L Magnesium Ferritin Total Bilirubin AST 64 H ALT 75 H Alkaline Phosphatase Lactate Dehydrogenase Total Creatine Kinase C-Reactive Protein Total Protein 5.9 L D Albumin 2.4 L Triglycerides Arterial Blood Glucose Arterial Blood Ionized Calcium Ur Specific [place] Urine WBC (Auto) Vancomycin Trough Coronavirus (PCR) 11/23/20 11/23/20 11/23/20 05:40 11:27 17:10 WBC RBC Hgb Hct RDW Plt Count Lymph % (Auto) [place] % (Auto) Lymph # (Auto) [place] # (Auto) Baso # (Auto) Seg Neutrophils % Seg Neuts % (Manual) Lymphocytes % (Manual) Seg Neutrophils # Seg Neutrophils # Man Lymphocytes # (Manual) D-Dimer ABG pH POC ABG pCO2 POC ABG pO2 56.5 L ABG pO2 ABG HCO3 ABG O2 Saturation ABG Base Excess ABG Hemoglobin ABG Oxyhemoglobin ABG Sodium ABG Potassium ABG Chloride 109.0 H ABG Glucose 114 H Oxyhemoglobin Carboxyhemoglobin Sodium Potassium Chloride Carbon Dioxide BUN Creatinine Glucose POC Glucose 114 H 136 H Hemoglobin A1c Lactic Acid Calcium Magnesium Ferritin Total Bilirubin AST ALT Alkaline Phosphatase Lactate Dehydrogenase Total Creatine Kinase C-Reactive Protein Total Protein Albumin Triglycerides Arterial Blood Glucose 114 H Arterial Blood Ionized Calcium 4.5 L Ur Specific [place] Urine WBC (Auto) Vancomycin Trough Coronavirus (PCR) 11/24/20 11/24/20 11/24/20 05:14 05:14 05:14 WBC RBC Hgb Hct RDW Plt Count Lymph % (Auto) [place] % (Auto) Lymph # (Auto) [place] # (Auto) Baso # (Auto) Seg Neutrophils % Seg Neuts % (Manual) Lymphocytes % (Manual) Seg Neutrophils # Seg Neutrophils # Man Lymphocytes # (Manual) D-Dimer 1433.39 H ABG pH POC ABG pCO2 POC ABG pO2 ABG pO2 ABG HCO3 ABG O2 Saturation ABG Base Excess ABG Hemoglobin ABG Oxyhemoglobin ABG Sodium ABG Potassium ABG Chloride ABG Glucose Oxyhemoglobin Carboxyhemoglobin Sodium Potassium Chloride Carbon Dioxide BUN Creatinine Glucose POC Glucose Hemoglobin A1c Lactic Acid Calcium Magnesium Ferritin 997.5 H Total Bilirubin AST ALT Alkaline Phosphatase Lactate Dehydrogenase 463 H Total Creatine Kinase C-Reactive Protein Total Protein Albumin Triglycerides Arterial Blood Glucose Arterial Blood Ionized Calcium Ur Specific [place] Urine WBC (Auto) Vancomycin Trough Coronavirus (PCR) 11/24/20 11/24/20 11/24/20 05:31 05:36 12:05 WBC RBC Hgb Hct RDW Plt Count Lymph % (Auto) [place] % (Auto) Lymph # (Auto) [place] # (Auto) Baso # (Auto) Seg Neutrophils % Seg Neuts % (Manual) Lymphocytes % (Manual) Seg Neutrophils # Seg Neutrophils # Man Lymphocytes # (Manual) D-Dimer ABG pH POC ABG pCO2 POC ABG pO2 57.2 L ABG pO2 ABG HCO3 ABG O2 Saturation ABG Base Excess ABG Hemoglobin ABG Oxyhemoglobin ABG Sodium ABG Potassium ABG Chloride ABG Glucose 180 H Oxyhemoglobin Carboxyhemoglobin Sodium Potassium Chloride Carbon Dioxide BUN Creatinine Glucose POC Glucose 199 H 143 H Hemoglobin A1c Lactic Acid Calcium Magnesium Ferritin Total Bilirubin AST ALT Alkaline Phosphatase Lactate Dehydrogenase Total Creatine Kinase C-Reactive Protein Total Protein Albumin Triglycerides Arterial Blood Glucose 180 H Arterial Blood Ionized Calcium 4.5 L Ur Specific [place] Urine WBC (Auto) Vancomycin Trough Coronavirus (PCR) 11/24/20 11/24/20 11/24/20 12:14 17:47 23:47 WBC RBC Hgb Hct RDW Plt Count Lymph % (Auto) [place] % (Auto) Lymph # (Auto) [place] # (Auto) Baso # (Auto) Seg Neutrophils % Seg Neuts % (Manual) Lymphocytes % (Manual) Seg Neutrophils # Seg Neutrophils # Man Lymphocytes # (Manual) D-Dimer ABG pH 7.261 L POC ABG pCO2 59.7 H POC ABG pO2 75.7 L ABG pO2 ABG HCO3 ABG O2 Saturation ABG Base Excess ABG Hemoglobin ABG Oxyhemoglobin 92.5 L ABG Sodium ABG Potassium ABG Chloride 108.0 H ABG Glucose 150 H Oxyhemoglobin Carboxyhemoglobin Sodium Potassium Chloride Carbon Dioxide BUN Creatinine Glucose POC Glucose 223 H 179 H Hemoglobin A1c Lactic Acid Calcium Magnesium Ferritin Total Bilirubin AST ALT Alkaline Phosphatase Lactate Dehydrogenase Total Creatine Kinase C-Reactive Protein Total Protein Albumin Triglycerides Arterial Blood Glucose 150 H Arterial Blood Ionized Calcium Ur Specific [place] Urine WBC (Auto) Vancomycin Trough Coronavirus (PCR) 11/25/20 11/25/20 11/25/20 03:29 05:07 05:15 WBC 13.9 H RBC Hgb Hct RDW Plt Count Lymph % (Auto) [place] % (Auto) Lymph # (Auto) [place] # (Auto) Baso # (Auto) Seg Neutrophils % Seg Neuts % (Manual) 97.0 H Lymphocytes % (Manual) Seg Neutrophils # Seg Neutrophils # Man 13.5 H Lymphocytes # (Manual) 0.0 L D-Dimer ABG pH 7.272 L POC ABG pCO2 69.0 H POC ABG pO2 132.9 H ABG pO2 ABG HCO3 ABG O2 Saturation ABG Base Excess ABG Hemoglobin ABG Oxyhemoglobin ABG Sodium ABG Potassium ABG Chloride ABG Glucose 174 H Oxyhemoglobin Carboxyhemoglobin Sodium Potassium Chloride Carbon Dioxide BUN Creatinine Glucose POC Glucose 168 H Hemoglobin A1c Lactic Acid Calcium Magnesium Ferritin Total Bilirubin AST ALT Alkaline Phosphatase Lactate Dehydrogenase Total Creatine Kinase C-Reactive Protein Total Protein Albumin Triglycerides Arterial Blood Glucose 174 H Arterial Blood Ionized Calcium Ur Specific [place] Urine WBC (Auto) Vancomycin Trough Coronavirus (PCR) 11/25/20 11/25/20 11/25/20 05:15 11:25 17:35 WBC RBC Hgb Hct RDW Plt Count Lymph % (Auto) [place] % (Auto) Lymph # (Auto) [place] # (Auto) Baso # (Auto) Seg Neutrophils % Seg Neuts % (Manual) Lymphocytes % (Manual) Seg Neutrophils # Seg Neutrophils # Man Lymphocytes # (Manual) D-Dimer ABG pH POC ABG pCO2 POC ABG pO2 ABG pO2 ABG HCO3 ABG O2 Saturation ABG Base Excess ABG Hemoglobin ABG Oxyhemoglobin ABG Sodium ABG Potassium ABG Chloride ABG Glucose Oxyhemoglobin Carboxyhemoglobin Sodium Potassium Chloride Carbon Dioxide BUN 29 H Creatinine 0.5 L Glucose 161 H POC Glucose 224 H 228 H Hemoglobin A1c Lactic Acid Calcium 7.8 L Magnesium Ferritin Total Bilirubin AST 89 H ALT 129 H Alkaline Phosphatase Lactate Dehydrogenase Total Creatine Kinase C-Reactive Protein Total Protein 5.8 L Albumin 2.5 L Triglycerides Arterial Blood Glucose Arterial Blood Ionized Calcium Ur Specific [place] Urine WBC (Auto) Vancomycin Trough Coronavirus (PCR) 11/25/20 11/25/20 11/26/20 20:45 23:28 04:00 WBC RBC Hgb Hct RDW Plt Count Lymph % (Auto) [place] % (Auto) Lymph # (Auto) [place] # (Auto) Baso # (Auto) Seg Neutrophils % Seg Neuts % (Manual) Lymphocytes % (Manual) Seg Neutrophils # Seg Neutrophils # Man Lymphocytes # (Manual) D-Dimer ABG pH POC ABG pCO2 POC ABG pO2 ABG pO2 ABG HCO3 ABG O2 Saturation ABG Base Excess ABG Hemoglobin ABG Oxyhemoglobin ABG Sodium ABG Potassium ABG Chloride ABG Glucose Oxyhemoglobin Carboxyhemoglobin Sodium Potassium Chloride Carbon Dioxide BUN Creatinine Glucose POC Glucose 177 H 243 H Hemoglobin A1c Lactic Acid Calcium Magnesium Ferritin 778.8 H Total Bilirubin AST ALT Alkaline Phosphatase Lactate Dehydrogenase Total Creatine Kinase C-Reactive Protein Total Protein Albumin Triglycerides Arterial Blood Glucose Arterial Blood Ionized Calcium Ur Specific [place] Urine WBC (Auto) Vancomycin Trough Coronavirus (PCR) 11/26/20 11/26/20 11/26/20 04:00 05:34 06:04 WBC RBC Hgb Hct RDW Plt Count Lymph % (Auto) [place] % (Auto) Lymph # (Auto) [place] # (Auto) Baso # (Auto) Seg Neutrophils % Seg Neuts % (Manual) Lymphocytes % (Manual) Seg Neutrophils # Seg Neutrophils # Man Lymphocytes # (Manual) D-Dimer 926.11 H ABG pH POC ABG pCO2 POC ABG pO2 ABG pO2 ABG HCO3 ABG O2 Saturation ABG Base Excess ABG Hemoglobin ABG Oxyhemoglobin ABG Sodium ABG Potassium ABG Chloride ABG Glucose Oxyhemoglobin Carboxyhemoglobin Sodium Potassium Chloride Carbon Dioxide 39 H D BUN 30 H Creatinine 0.5 L Glucose 193 H POC Glucose 178 H Hemoglobin A1c Lactic Acid Calcium 7.7 L Magnesium Ferritin Total Bilirubin AST 65 H ALT 132 H Alkaline Phosphatase Lactate Dehydrogenase 288 H Total Creatine Kinase C-Reactive Protein 1.40 H Total Protein 5.7 L Albumin 2.4 L Triglycerides Arterial Blood Glucose Arterial Blood Ionized Calcium Ur Specific [place] Urine WBC (Auto) Vancomycin Trough Coronavirus (PCR) 11/26/20 11/26/20 11/26/20 06:04 08:47 11:20 WBC 12.4 H RBC Hgb Hct RDW Plt Count Lymph % (Auto) [place] % (Auto) Lymph # (Auto) [place] # (Auto) Baso # (Auto) Seg Neutrophils % Seg Neuts % (Manual) 98.0 H Lymphocytes % (Manual) 1.0 L Seg Neutrophils # Seg Neutrophils # Man 12.2 H Lymphocytes # (Manual) 0.1 L D-Dimer ABG pH POC ABG pCO2 75.2 H POC ABG pO2 61.9 L ABG pO2 ABG HCO3 ABG O2 Saturation ABG Base Excess ABG Hemoglobin ABG Oxyhemoglobin 90.3 L ABG Sodium ABG Potassium ABG Chloride ABG Glucose 243 H Oxyhemoglobin Carboxyhemoglobin Sodium Potassium Chloride Carbon Dioxide BUN Creatinine Glucose POC Glucose 255 H Hemoglobin A1c Lactic Acid Calcium Magnesium Ferritin Total Bilirubin AST ALT Alkaline Phosphatase Lactate Dehydrogenase Total Creatine Kinase C-Reactive Protein Total Protein Albumin Triglycerides Arterial Blood Glucose 243 H Arterial Blood Ionized Calcium Ur Specific [place] Urine WBC (Auto) Vancomycin Trough Coronavirus (PCR) 11/26/20 11/26/20 11/26/20 16:20 17:15 23:41 WBC RBC Hgb Hct RDW Plt Count Lymph % (Auto) [place] % (Auto) Lymph # (Auto) [place] # (Auto) Baso # (Auto) Seg Neutrophils % Seg Neuts % (Manual) Lymphocytes % (Manual) Seg Neutrophils # Seg Neutrophils # Man Lymphocytes # (Manual) D-Dimer ABG pH POC ABG pCO2 66.6 H POC ABG pO2 78.1 L ABG pO2 ABG HCO3 ABG O2 Saturation ABG Base Excess ABG Hemoglobin ABG Oxyhemoglobin ABG Sodium ABG Potassium ABG Chloride ABG Glucose 244 H Oxyhemoglobin Carboxyhemoglobin Sodium Potassium Chloride Carbon Dioxide BUN Creatinine Glucose POC Glucose 219 H 210 H Hemoglobin A1c Lactic Acid Calcium Magnesium Ferritin Total Bilirubin AST ALT Alkaline Phosphatase Lactate Dehydrogenase Total Creatine Kinase C-Reactive Protein Total Protein Albumin Triglycerides Arterial Blood Glucose 244 H Arterial Blood Ionized Calcium Ur Specific [place] Urine WBC (Auto) Vancomycin Trough Coronavirus (PCR) 11/27/20 11/27/20 11/27/20 04:46 05:38 06:25 WBC 13.8 H RBC Hgb Hct RDW Plt Count Lymph % (Auto) 2.0 L [place] % (Auto) Lymph # (Auto) 0.3 L [place] # (Auto) Baso # (Auto) Seg Neutrophils % Seg Neuts % (Manual) 96.0 H Lymphocytes % (Manual) Seg Neutrophils # 12.7 H Seg Neutrophils # Man 13.2 H Lymphocytes # (Manual) 0.0 L D-Dimer ABG pH POC ABG pCO2 63.0 H POC ABG pO2 53.6 L ABG pO2 ABG HCO3 ABG O2 Saturation ABG Base Excess ABG Hemoglobin ABG Oxyhemoglobin 87.8 L ABG Sodium 115.4 L ABG Potassium ABG Chloride ABG Glucose 219 H Oxyhemoglobin Carboxyhemoglobin Sodium Potassium Chloride Carbon Dioxide BUN Creatinine Glucose POC Glucose 227 H Hemoglobin A1c Lactic Acid Calcium Magnesium Ferritin Total Bilirubin AST ALT Alkaline Phosphatase Lactate Dehydrogenase Total Creatine Kinase C-Reactive Protein Total Protein Albumin Triglycerides Arterial Blood Glucose 219 H Arterial Blood Ionized Calcium Ur Specific [place] Urine WBC (Auto) Vancomycin Trough Coronavirus (PCR) 11/27/20 11/27/20 11/27/20 06:25 18:05 23:29 WBC RBC Hgb Hct RDW Plt Count Lymph % (Auto) [place] % (Auto) Lymph # (Auto) [place] # (Auto) Baso # (Auto) Seg Neutrophils % Seg Neuts % (Manual) Lymphocytes % (Manual) Seg Neutrophils # Seg Neutrophils # Man Lymphocytes # (Manual) D-Dimer ABG pH POC ABG pCO2 POC ABG pO2 ABG pO2 ABG HCO3 ABG O2 Saturation ABG Base Excess ABG Hemoglobin ABG Oxyhemoglobin ABG Sodium ABG Potassium ABG Chloride ABG Glucose Oxyhemoglobin Carboxyhemoglobin Sodium Potassium Chloride Carbon Dioxide 38 H BUN 34 H Creatinine 0.4 L Glucose 243 H POC Glucose 329 H 227 H Hemoglobin A1c Lactic Acid Calcium 7.9 L Magnesium Ferritin Total Bilirubin AST 50 H ALT 110 H Alkaline Phosphatase Lactate Dehydrogenase Total Creatine Kinase C-Reactive Protein Total Protein 6.1 L Albumin 2.4 L Triglycerides Arterial Blood Glucose Arterial Blood Ionized Calcium Ur Specific [place] Urine WBC (Auto) Vancomycin Trough Coronavirus (PCR) 11/28/20 11/28/20 11/28/20 03:45 03:45 03:46 WBC 12.2 H RBC Hgb Hct RDW Plt Count Lymph % (Auto) [place] % (Auto) Lymph # (Auto) [place] # (Auto) Baso # (Auto) Seg Neutrophils % Seg Neuts % (Manual) 93.0 H Lymphocytes % (Manual) 2.0 L Seg Neutrophils # Seg Neutrophils # Man 11.3 H Lymphocytes # (Manual) 0.2 L D-Dimer ABG pH POC ABG pCO2 68.4 H POC ABG pO2 55.4 L ABG pO2 ABG HCO3 ABG O2 Saturation ABG Base Excess ABG Hemoglobin ABG Oxyhemoglobin ABG Sodium ABG Potassium ABG Chloride ABG Glucose 197 H Oxyhemoglobin Carboxyhemoglobin Sodium Potassium Chloride Carbon Dioxide 36 H BUN 37 H Creatinine 0.4 L Glucose 194 H POC Glucose Hemoglobin A1c Lactic Acid Calcium 8.1 L Magnesium Ferritin Total Bilirubin AST ALT 86 H Alkaline Phosphatase Lactate Dehydrogenase Total Creatine Kinase C-Reactive Protein Total Protein 6.0 L Albumin 2.3 L Triglycerides Arterial Blood Glucose 197 H Arterial Blood Ionized Calcium Ur Specific [place] Urine WBC (Auto) Vancomycin Trough Coronavirus (PCR) 11/28/20 11/28/20 11/29/20 05:24 12:21 04:41 WBC RBC Hgb Hct RDW Plt Count Lymph % (Auto) [place] % (Auto) Lymph # (Auto) [place] # (Auto) Baso # (Auto) Seg Neutrophils % Seg Neuts % (Manual) Lymphocytes % (Manual) Seg Neutrophils # Seg Neutrophils # Man Lymphocytes # (Manual) D-Dimer ABG pH POC ABG pCO2 55.1 H POC ABG pO2 53.6 L ABG pO2 ABG HCO3 ABG O2 Saturation ABG Base Excess ABG Hemoglobin ABG Oxyhemoglobin 87.1 L ABG Sodium 131.2 L ABG Potassium ABG Chloride ABG Glucose 164 H Oxyhemoglobin Carboxyhemoglobin Sodium Potassium Chloride Carbon Dioxide BUN Creatinine Glucose POC Glucose 173 H 126 H Hemoglobin A1c Lactic Acid Calcium Magnesium Ferritin Total Bilirubin AST ALT Alkaline Phosphatase Lactate Dehydrogenase Total Creatine Kinase C-Reactive Protein Total Protein Albumin Triglycerides Arterial Blood Glucose 164 H Arterial Blood Ionized Calcium 4.4 L Ur Specific [place] Urine WBC (Auto) Vancomycin Trough Coronavirus (PCR) 11/29/20 11/29/20 11/29/20 05:29 12:41 13:28 WBC RBC Hgb Hct RDW Plt Count Lymph % (Auto) [place] % (Auto) Lymph # (Auto) [place] # (Auto) Baso # (Auto) Seg Neutrophils % Seg Neuts % (Manual) Lymphocytes % (Manual) Seg Neutrophils # Seg Neutrophils # Man Lymphocytes # (Manual) D-Dimer ABG pH POC ABG pCO2 POC ABG pO2 ABG pO2 ABG HCO3 ABG O2 Saturation ABG Base Excess ABG Hemoglobin ABG Oxyhemoglobin ABG Sodium ABG Potassium ABG Chloride ABG Glucose Oxyhemoglobin Carboxyhemoglobin Sodium Potassium Chloride Carbon Dioxide 40 H BUN 32 H Creatinine 0.4 L Glucose 274 H POC Glucose 173 H 257 H Hemoglobin A1c Lactic Acid Calcium 7.2 L Magnesium Ferritin Total Bilirubin AST 57 H ALT 102 H Alkaline Phosphatase Lactate Dehydrogenase Total Creatine Kinase C-Reactive Protein Total Protein 5.7 L Albumin 2.1 L Triglycerides Arterial Blood Glucose Arterial Blood Ionized Calcium Ur Specific [place] Urine WBC (Auto) Vancomycin Trough Coronavirus (PCR) 11/29/20 11/29/20 11/29/20 15:40 17:36 21:26 WBC RBC Hgb Hct RDW Plt Count Lymph % (Auto) [place] % (Auto) Lymph # (Auto) [place] # (Auto) Baso # (Auto) Seg Neutrophils % Seg Neuts % (Manual) Lymphocytes % (Manual) Seg Neutrophils # Seg Neutrophils # Man Lymphocytes # (Manual) D-Dimer ABG pH POC ABG pCO2 POC ABG pO2 ABG pO2 ABG HCO3 ABG O2 Saturation ABG Base Excess ABG Hemoglobin ABG Oxyhemoglobin ABG Sodium ABG Potassium ABG Chloride ABG Glucose Oxyhemoglobin Carboxyhemoglobin Sodium Potassium Chloride Carbon Dioxide BUN Creatinine Glucose POC Glucose 240 H 244 H Hemoglobin A1c Lactic Acid Calcium Magnesium Ferritin Total Bilirubin AST ALT Alkaline Phosphatase Lactate Dehydrogenase Total Creatine Kinase C-Reactive Protein Total Protein Albumin Triglycerides Arterial Blood Glucose Arterial Blood Ionized Calcium Ur Specific [place] Urine WBC (Auto) Vancomycin Trough 4.0 L Coronavirus (PCR) 11/29/20 11/30/20 11/30/20 23:26 03:30 03:30 WBC RBC Hgb Hct RDW Plt Count Lymph % (Auto) [place] % (Auto) Lymph # (Auto) [place] # (Auto) Baso # (Auto) Seg Neutrophils % Seg Neuts % (Manual) 97.0 H Lymphocytes % (Manual) 1.0 L Seg Neutrophils # Seg Neutrophils # Man 9.9 H Lymphocytes # (Manual) 0.1 L D-Dimer ABG pH POC ABG pCO2 POC ABG pO2 ABG pO2 ABG HCO3 ABG O2 Saturation ABG Base Excess ABG Hemoglobin ABG Oxyhemoglobin ABG Sodium ABG Potassium ABG Chloride ABG Glucose Oxyhemoglobin Carboxyhemoglobin Sodium Potassium Chloride Carbon Dioxide 38 H BUN 34 H Creatinine 0.4 L Glucose 305 H POC Glucose 283 H Hemoglobin A1c Lactic Acid Calcium 7.6 L Magnesium Ferritin Total Bilirubin AST ALT 89 H Alkaline Phosphatase Lactate Dehydrogenase Total Creatine Kinase C-Reactive Protein Total Protein 6.0 L Albumin 2.3 L Triglycerides Arterial Blood Glucose Arterial Blood Ionized Calcium Ur Specific [place] Urine WBC (Auto) Vancomycin Trough Coronavirus (PCR) 11/30/20 11/30/20 11/30/20 03:57 05:22 12:05 WBC RBC Hgb Hct RDW Plt Count Lymph % (Auto) [place] % (Auto) Lymph # (Auto) [place] # (Auto) Baso # (Auto) Seg Neutrophils % Seg Neuts % (Manual) Lymphocytes % (Manual) Seg Neutrophils # Seg Neutrophils # Man Lymphocytes # (Manual) D-Dimer ABG pH POC ABG pCO2 60.8 H POC ABG pO2 51.1 L ABG pO2 ABG HCO3 ABG O2 Saturation ABG Base Excess ABG Hemoglobin ABG Oxyhemoglobin 84.6 L ABG Sodium ABG Potassium ABG Chloride ABG Glucose 315 H Oxyhemoglobin Carboxyhemoglobin Sodium Potassium Chloride Carbon Dioxide BUN Creatinine Glucose POC Glucose 295 H 413 H Hemoglobin A1c Lactic Acid Calcium Magnesium Ferritin Total Bilirubin AST ALT Alkaline Phosphatase Lactate Dehydrogenase Total Creatine Kinase C-Reactive Protein Total Protein Albumin Triglycerides Arterial Blood Glucose 315 H Arterial Blood Ionized Calcium 4.5 L Ur Specific [place] Urine WBC (Auto) Vancomycin Trough Coronavirus (PCR) 11/30/20 11/30/20 12/01/20 17:24 23:25 02:14 WBC RBC Hgb Hct RDW Plt Count Lymph % (Auto) [place] % (Auto) Lymph # (Auto) [place] # (Auto) Baso # (Auto) Seg Neutrophils % Seg Neuts % (Manual) Lymphocytes % (Manual) Seg Neutrophils # Seg Neutrophils # Man Lymphocytes # (Manual) D-Dimer ABG pH 7.278 L POC ABG pCO2 78.1 H POC ABG pO2 79.5 L ABG pO2 ABG HCO3 ABG O2 Saturation ABG Base Excess ABG Hemoglobin 11.6 L ABG Oxyhemoglobin ABG Sodium 134.5 L ABG Potassium 4.6 H ABG Chloride ABG Glucose 286 H Oxyhemoglobin Carboxyhemoglobin Sodium Potassium Chloride Carbon Dioxide BUN Creatinine Glucose POC Glucose 305 H 302 H Hemoglobin A1c Lactic Acid Calcium Magnesium Ferritin Total Bilirubin AST ALT Alkaline Phosphatase Lactate Dehydrogenase Total Creatine Kinase C-Reactive Protein Total Protein Albumin Triglycerides Arterial Blood Glucose 286 H Arterial Blood Ionized Calcium Ur Specific [place] Urine WBC (Auto) Vancomycin Trough Coronavirus (PCR) 12/01/20 12/01/20 12/01/20 03:35 03:35 05:22 WBC 13.4 H RBC 3.54 L Hgb 10.4 L Hct 31.8 L RDW Plt Count Lymph % (Auto) [place] % (Auto) Lymph # (Auto) [place] # (Auto) Baso # (Auto) Seg Neutrophils % Seg Neuts % (Manual) 95.0 H Lymphocytes % (Manual) 3.0 L Seg Neutrophils # Seg Neutrophils # Man 12.7 H Lymphocytes # (Manual) 0.4 L D-Dimer ABG pH POC ABG pCO2 POC ABG pO2 ABG pO2 ABG HCO3 ABG O2 Saturation ABG Base Excess ABG Hemoglobin ABG Oxyhemoglobin ABG Sodium ABG Potassium ABG Chloride ABG Glucose Oxyhemoglobin Carboxyhemoglobin Sodium Potassium Chloride Carbon Dioxide 35 H BUN 34 H Creatinine 0.5 L Glucose 279 H POC Glucose 259 H Hemoglobin A1c Lactic Acid Calcium 7.6 L Magnesium Ferritin Total Bilirubin AST ALT 63 H Alkaline Phosphatase Lactate Dehydrogenase Total Creatine Kinase C-Reactive Protein Total Protein 4.8 L Albumin 2.1 L Triglycerides Arterial Blood Glucose Arterial Blood Ionized Calcium Ur Specific [place] Urine WBC (Auto) Vancomycin Trough Coronavirus (PCR) 12/01/20 12/01/20 12/01/20 12:05 17:40 23:46 WBC RBC Hgb Hct RDW Plt Count Lymph % (Auto) [place] % (Auto) Lymph # (Auto) [place] # (Auto) Baso # (Auto) Seg Neutrophils % Seg Neuts % (Manual) Lymphocytes % (Manual) Seg Neutrophils # Seg Neutrophils # Man Lymphocytes # (Manual) D-Dimer ABG pH POC ABG pCO2 POC ABG pO2 ABG pO2 ABG HCO3 ABG O2 Saturation ABG Base Excess ABG Hemoglobin ABG Oxyhemoglobin ABG Sodium ABG Potassium ABG Chloride ABG Glucose Oxyhemoglobin Carboxyhemoglobin Sodium Potassium Chloride Carbon Dioxide BUN Creatinine Glucose POC Glucose 197 H 244 H 284 H Hemoglobin A1c Lactic Acid Calcium Magnesium Ferritin Total Bilirubin AST ALT Alkaline Phosphatase Lactate Dehydrogenase Total Creatine Kinase C-Reactive Protein Total Protein Albumin Triglycerides Arterial Blood Glucose Arterial Blood Ionized Calcium Ur Specific [place] Urine WBC (Auto) Vancomycin Trough Coronavirus (PCR) 12/02/20 12/02/20 12/02/20 02:14 03:03 04:11 WBC 16.5 H RBC 3.55 L Hgb 10.5 L Hct 31.9 L RDW Plt Count Lymph % (Auto) [place] % (Auto) Lymph # (Auto) [place] # (Auto) Baso # (Auto) Seg Neutrophils % Seg Neuts % (Manual) 90.0 H Lymphocytes % (Manual) 3.0 L Seg Neutrophils # Seg Neutrophils # Man 14.9 H Lymphocytes # (Manual) 0.5 L D-Dimer ABG pH POC ABG pCO2 74.8 H POC ABG pO2 58.9 L ABG pO2 ABG HCO3 ABG O2 Saturation ABG Base Excess ABG Hemoglobin 11.5 L ABG Oxyhemoglobin ABG Sodium ABG Potassium ABG Chloride ABG Glucose 264 H Oxyhemoglobin Carboxyhemoglobin Sodium Potassium Chloride Carbon Dioxide 37 H BUN 30 H Creatinine 0.4 L Glucose 245 H POC Glucose Hemoglobin A1c Lactic Acid Calcium 7.5 L Magnesium Ferritin Total Bilirubin AST ALT Alkaline Phosphatase Lactate Dehydrogenase Total Creatine Kinase C-Reactive Protein Total Protein 5.2 L Albumin 2.2 L Triglycerides Arterial Blood Glucose 264 H Arterial Blood Ionized Calcium 4.5 L Ur Specific [place] Urine WBC (Auto) Vancomycin Trough Coronavirus (PCR) 12/02/20 12/02/20 12/02/20 05:19 11:46 17:52 WBC RBC Hgb Hct RDW Plt Count Lymph % (Auto) [place] % (Auto) Lymph # (Auto) [place] # (Auto) Baso # (Auto) Seg Neutrophils % Seg Neuts % (Manual) Lymphocytes % (Manual) Seg Neutrophils # Seg Neutrophils # Man Lymphocytes # (Manual) D-Dimer ABG pH POC ABG pCO2 POC ABG pO2 ABG pO2 ABG HCO3 ABG O2 Saturation ABG Base Excess ABG Hemoglobin ABG Oxyhemoglobin ABG Sodium ABG Potassium ABG Chloride ABG Glucose Oxyhemoglobin Carboxyhemoglobin Sodium Potassium Chloride Carbon Dioxide BUN Creatinine Glucose POC Glucose 238 H 236 H 233 H Hemoglobin A1c Lactic Acid Calcium Magnesium Ferritin Total Bilirubin AST ALT Alkaline Phosphatase Lactate Dehydrogenase Total Creatine Kinase C-Reactive Protein Total Protein Albumin Triglycerides Arterial Blood Glucose Arterial Blood Ionized Calcium Ur Specific [place] Urine WBC (Auto) Vancomycin Trough Coronavirus (PCR) 12/02/20 12/03/20 12/03/20 23:23 03:21 04:35 WBC RBC Hgb Hct RDW Plt Count 112 L Lymph % (Auto) [place] % (Auto) Lymph # (Auto) [place] # (Auto) Baso # (Auto) Seg Neutrophils % Seg Neuts % (Manual) 93.0 H Lymphocytes % (Manual) 4.0 L Seg Neutrophils # Seg Neutrophils # Man 9.1 H Lymphocytes # (Manual) 0.4 L D-Dimer ABG pH 7.299 L POC ABG pCO2 82.1 H POC ABG pO2 62.4 L ABG pO2 ABG HCO3 ABG O2 Saturation ABG Base Excess ABG Hemoglobin 11.5 L ABG Oxyhemoglobin 89.6 L ABG Sodium 134.3 L ABG Potassium ABG Chloride 95.0 L ABG Glucose 203 H Oxyhemoglobin Carboxyhemoglobin Sodium Potassium Chloride Carbon Dioxide BUN Creatinine Glucose POC Glucose 213 H Hemoglobin A1c Lactic Acid Calcium Magnesium Ferritin Total Bilirubin AST ALT Alkaline Phosphatase Lactate Dehydrogenase Total Creatine Kinase C-Reactive Protein Total Protein Albumin Triglycerides Arterial Blood Glucose 203 H Arterial Blood Ionized Calcium 4.5 L Ur Specific [place] Urine WBC (Auto) Vancomycin Trough Coronavirus (PCR) 12/03/20 12/03/20 12/03/20 04:35 05:42 11:28 WBC RBC Hgb Hct RDW Plt Count Lymph % (Auto) [place] % (Auto) Lymph # (Auto) [place] # (Auto) Baso # (Auto) Seg Neutrophils % Seg Neuts % (Manual) Lymphocytes % (Manual) Seg Neutrophils # Seg Neutrophils # Man Lymphocytes # (Manual) D-Dimer ABG pH POC ABG pCO2 POC ABG pO2 ABG pO2 ABG HCO3 ABG O2 Saturation ABG Base Excess ABG Hemoglobin ABG Oxyhemoglobin ABG Sodium ABG Potassium ABG Chloride ABG Glucose Oxyhemoglobin Carboxyhemoglobin Sodium Potassium Chloride 97.8 L Carbon Dioxide 43 H* BUN 25 H Creatinine 0.3 L Glucose 214 H POC Glucose 193 H 211 H Hemoglobin A1c Lactic Acid Calcium 7.7 L Magnesium Ferritin Total Bilirubin AST ALT 63 H Alkaline Phosphatase 132 H Lactate Dehydrogenase Total Creatine Kinase C-Reactive Protein Total Protein 5.1 L Albumin 2.4 L Triglycerides Arterial Blood Glucose Arterial Blood Ionized Calcium Ur Specific [place] Urine WBC (Auto) Vancomycin Trough Coronavirus (PCR) 12/03/20 12/03/20 12/04/20 17:45 23:57 00:11 WBC RBC Hgb Hct RDW Plt Count Lymph % (Auto) [place] % (Auto) Lymph # (Auto) [place] # (Auto) Baso # (Auto) Seg Neutrophils % Seg Neuts % (Manual) Lymphocytes % (Manual) Seg Neutrophils # Seg Neutrophils # Man Lymphocytes # (Manual) D-Dimer ABG pH POC ABG pCO2 POC ABG pO2 ABG pO2 ABG HCO3 ABG O2 Saturation ABG Base Excess ABG Hemoglobin ABG Oxyhemoglobin ABG Sodium ABG Potassium ABG Chloride ABG Glucose Oxyhemoglobin Carboxyhemoglobin Sodium Potassium Chloride Carbon Dioxide BUN Creatinine Glucose POC Glucose 231 H 240 H 239 H Hemoglobin A1c Lactic Acid Calcium Magnesium Ferritin Total Bilirubin AST ALT Alkaline Phosphatase Lactate Dehydrogenase Total Creatine Kinase C-Reactive Protein Total Protein Albumin Triglycerides Arterial Blood Glucose Arterial Blood Ionized Calcium Ur Specific [place] Urine WBC (Auto) Vancomycin Trough Coronavirus (PCR) 12/04/20 12/04/20 12/04/20 04:00 05:20 05:34 WBC RBC Hgb Hct RDW Plt Count Lymph % (Auto) [place] % (Auto) Lymph # (Auto) [place] # (Auto) Baso # (Auto) Seg Neutrophils % Seg Neuts % (Manual) Lymphocytes % (Manual) Seg Neutrophils # Seg Neutrophils # Man Lymphocytes # (Manual) D-Dimer ABG pH POC ABG pCO2 84.4 H POC ABG pO2 68.0 L ABG pO2 ABG HCO3 ABG O2 Saturation ABG Base Excess ABG Hemoglobin 11.6 L ABG Oxyhemoglobin ABG Sodium 130.9 L ABG Potassium ABG Chloride 90.0 L ABG Glucose 244 H Oxyhemoglobin Carboxyhemoglobin Sodium Potassium Chloride Carbon Dioxide BUN Creatinine Glucose POC Glucose 241 H 213 H Hemoglobin A1c Lactic Acid Calcium Magnesium Ferritin Total Bilirubin AST ALT Alkaline Phosphatase Lactate Dehydrogenase Total Creatine Kinase C-Reactive Protein Total Protein Albumin Triglycerides Arterial Blood Glucose 244 H Arterial Blood Ionized Calcium 4.4 L Ur Specific [place] Urine WBC (Auto) Vancomycin Trough Coronavirus (PCR) 12/04/20 12/04/20 12/04/20 11:36 16:53 23:32 WBC RBC Hgb Hct RDW Plt Count Lymph % (Auto) [place] % (Auto) Lymph # (Auto) [place] # (Auto) Baso # (Auto) Seg Neutrophils % Seg Neuts % (Manual) Lymphocytes % (Manual) Seg Neutrophils # Seg Neutrophils # Man Lymphocytes # (Manual) D-Dimer ABG pH POC ABG pCO2 POC ABG pO2 ABG pO2 ABG HCO3 ABG O2 Saturation ABG Base Excess ABG Hemoglobin ABG Oxyhemoglobin ABG Sodium ABG Potassium ABG Chloride ABG Glucose Oxyhemoglobin Carboxyhemoglobin Sodium Potassium Chloride Carbon Dioxide BUN Creatinine Glucose POC Glucose 196 H 127 H 230 H Hemoglobin A1c Lactic Acid Calcium Magnesium Ferritin Total Bilirubin AST ALT Alkaline Phosphatase Lactate Dehydrogenase Total Creatine Kinase C-Reactive Protein Total Protein Albumin Triglycerides Arterial Blood Glucose Arterial Blood Ionized Calcium Ur Specific [place] Urine WBC (Auto) Vancomycin Trough Coronavirus (PCR) 12/04/20 12/05/20 12/05/20 Unknown 04:16 05:21 WBC RBC Hgb Hct RDW Plt Count Lymph % (Auto) [place] % (Auto) Lymph # (Auto) [place] # (Auto) Baso # (Auto) Seg Neutrophils % Seg Neuts % (Manual) Lymphocytes % (Manual) Seg Neutrophils # Seg Neutrophils # Man Lymphocytes # (Manual) D-Dimer ABG pH POC ABG pCO2 86.7 H POC ABG pO2 58.0 L ABG pO2 ABG HCO3 ABG O2 Saturation ABG Base Excess ABG Hemoglobin 11.6 L ABG Oxyhemoglobin 89 L ABG Sodium 130.1 L ABG Potassium 4.9 H ABG Chloride 89.0 L ABG Glucose 254 H Oxyhemoglobin Carboxyhemoglobin Sodium 136 L Potassium Chloride 90.0 L Carbon Dioxide 46 H* BUN 24 H Creatinine 0.3 L Glucose 226 H POC Glucose 213 H Hemoglobin A1c Lactic Acid Calcium 7.6 L Magnesium Ferritin Total Bilirubin AST 46 H ALT 78 H Alkaline Phosphatase 172 H Lactate Dehydrogenase Total Creatine Kinase C-Reactive Protein Total Protein 6.0 L Albumin 2.8 L Triglycerides 156 H Arterial Blood Glucose 254 H Arterial Blood Ionized Calcium 4.4 L Ur Specific [place] Urine WBC (Auto) Vancomycin Trough Coronavirus (PCR) 12/05/20 12/05/20 12/05/20 11:22 17:26 23:38 WBC RBC Hgb Hct RDW Plt Count Lymph % (Auto) [place] % (Auto) Lymph # (Auto) [place] # (Auto) Baso # (Auto) Seg Neutrophils % Seg Neuts % (Manual) Lymphocytes % (Manual) Seg Neutrophils # Seg Neutrophils # Man Lymphocytes # (Manual) D-Dimer ABG pH POC ABG pCO2 POC ABG pO2 ABG pO2 ABG HCO3 ABG O2 Saturation ABG Base Excess ABG Hemoglobin ABG Oxyhemoglobin ABG Sodium ABG Potassium ABG Chloride ABG Glucose Oxyhemoglobin Carboxyhemoglobin Sodium Potassium Chloride Carbon Dioxide BUN Creatinine Glucose POC Glucose 212 H 157 H 204 H Hemoglobin A1c Lactic Acid Calcium Magnesium Ferritin Total Bilirubin AST ALT Alkaline Phosphatase Lactate Dehydrogenase Total Creatine Kinase C-Reactive Protein Total Protein Albumin Triglycerides Arterial Blood Glucose Arterial Blood Ionized Calcium Ur Specific [place] Urine WBC (Auto) Vancomycin Trough Coronavirus (PCR) 12/06/20 12/06/20 12/06/20 04:31 04:31 05:12 WBC 17.0 H RBC 3.63 L Hgb 10.8 L D Hct 32.6 L D RDW Plt Count Lymph % (Auto) [place] % (Auto) Lymph # (Auto) [place] # (Auto) Baso # (Auto) Seg Neutrophils % Seg Neuts % (Manual) Lymphocytes % (Manual) Seg Neutrophils # Seg Neutrophils # Man Lymphocytes # (Manual) D-Dimer ABG pH POC ABG pCO2 85.9 H POC ABG pO2 57.6 L ABG pO2 ABG HCO3 ABG O2 Saturation ABG Base Excess ABG Hemoglobin ABG Oxyhemoglobin ABG Sodium 131.2 L ABG Potassium 4.8 H ABG Chloride 86.0 L ABG Glucose 200 H Oxyhemoglobin Carboxyhemoglobin Sodium 134 L Potassium 5.1 H Chloride 88.4 L Carbon Dioxide 47 H* BUN 23 H Creatinine 0.3 L Glucose 206 H POC Glucose Hemoglobin A1c Lactic Acid Calcium 8.3 L Magnesium Ferritin Total Bilirubin AST 48 H ALT 91 H Alkaline Phosphatase 140 H Lactate Dehydrogenase Total Creatine Kinase C-Reactive Protein Total Protein 5.7 L Albumin 2.6 L Triglycerides Arterial Blood Glucose 200 H Arterial Blood Ionized Calcium 4.4 L Ur Specific [place] Urine WBC (Auto) Vancomycin Trough Coronavirus (PCR) 12/06/20 12/06/20 12/06/20 05:24 12:18 16:45 WBC RBC Hgb Hct RDW Plt Count Lymph % (Auto) [place] % (Auto) Lymph # (Auto) [place] # (Auto) Baso # (Auto) Seg Neutrophils % Seg Neuts % (Manual) Lymphocytes % (Manual) Seg Neutrophils # Seg Neutrophils # Man Lymphocytes # (Manual) D-Dimer ABG pH POC ABG pCO2 POC ABG pO2 ABG pO2 ABG HCO3 ABG O2 Saturation ABG Base Excess ABG Hemoglobin ABG Oxyhemoglobin ABG Sodium ABG Potassium ABG Chloride ABG Glucose Oxyhemoglobin Carboxyhemoglobin Sodium Potassium Chloride Carbon Dioxide BUN Creatinine Glucose POC Glucose 186 H 187 H 150 H Hemoglobin A1c Lactic Acid Calcium Magnesium Ferritin Total Bilirubin AST ALT Alkaline Phosphatase Lactate Dehydrogenase Total Creatine Kinase C-Reactive Protein Total Protein Albumin Triglycerides Arterial Blood Glucose Arterial Blood Ionized Calcium Ur Specific [place] Urine WBC (Auto) Vancomycin Trough Coronavirus (PCR) 12/06/20 12/07/20 12/07/20 23:43 05:20 05:21 WBC RBC Hgb Hct RDW Plt Count Lymph % (Auto) [place] % (Auto) Lymph # (Auto) [place] # (Auto) Baso # (Auto) Seg Neutrophils % Seg Neuts % (Manual) Lymphocytes % (Manual) Seg Neutrophils # Seg Neutrophils # Man Lymphocytes # (Manual) D-Dimer ABG pH POC ABG pCO2 POC ABG pO2 ABG pO2 48.4 L ABG HCO3 50.8 H ABG O2 Saturation 86.2 L ABG Base Excess 22.4 H ABG Hemoglobin 11.0 L ABG Oxyhemoglobin ABG Sodium ABG Potassium ABG Chloride ABG Glucose Oxyhemoglobin 84.0 L Carboxyhemoglobin Sodium Potassium Chloride Carbon Dioxide BUN Creatinine Glucose POC Glucose 153 H 107 H Hemoglobin A1c Lactic Acid Calcium Magnesium Ferritin Total Bilirubin AST ALT Alkaline Phosphatase Lactate Dehydrogenase Total Creatine Kinase C-Reactive Protein Total Protein Albumin Triglycerides Arterial Blood Glucose Arterial Blood Ionized Calcium Ur Specific [place] Urine WBC (Auto) Vancomycin Trough Coronavirus (PCR) 12/07/20 12/07/20 12/07/20 13:20 14:28 17:35 WBC RBC Hgb Hct RDW Plt Count Lymph % (Auto) [place] % (Auto) Lymph # (Auto) [place] # (Auto) Baso # (Auto) Seg Neutrophils % Seg Neuts % (Manual) Lymphocytes % (Manual) Seg Neutrophils # Seg Neutrophils # Man Lymphocytes # (Manual) D-Dimer ABG pH POC ABG pCO2 74.1 H POC ABG pO2 68.5 L ABG pO2 ABG HCO3 ABG O2 Saturation ABG Base Excess ABG Hemoglobin 10.7 L ABG Oxyhemoglobin 91.9 L ABG Sodium 132.2 L ABG Potassium 4.7 H ABG Chloride 88.0 L ABG Glucose 138 H Oxyhemoglobin Carboxyhemoglobin Sodium 134 L Potassium Chloride 87.4 L Carbon Dioxide 49 H* BUN Creatinine 0.2 L Glucose 132 H POC Glucose 176 H Hemoglobin A1c Lactic Acid Calcium 7.7 L Magnesium Ferritin Total Bilirubin AST ALT Alkaline Phosphatase Lactate Dehydrogenase Total Creatine Kinase C-Reactive Protein Total Protein Albumin Triglycerides Arterial Blood Glucose 138 H Arterial Blood Ionized Calcium 4.0 L Ur Specific [place] Urine WBC (Auto) Vancomycin Trough Coronavirus (PCR) 12/07/20 12/08/20 12/08/20 23:44 04:12 05:29 WBC RBC Hgb Hct RDW Plt Count Lymph % (Auto) [place] % (Auto) Lymph # (Auto) [place] # (Auto) Baso # (Auto) Seg Neutrophils % Seg Neuts % (Manual) Lymphocytes % (Manual) Seg Neutrophils # Seg Neutrophils # Man Lymphocytes # (Manual) D-Dimer ABG pH POC ABG pCO2 POC ABG pO2 ABG pO2 69.7 L ABG HCO3 50.1 H ABG O2 Saturation ABG Base Excess 21.6 H ABG Hemoglobin 10.9 L ABG Oxyhemoglobin ABG Sodium ABG Potassium ABG Chloride ABG Glucose Oxyhemoglobin 93.2 L Carboxyhemoglobin Sodium Potassium Chloride Carbon Dioxide BUN Creatinine Glucose POC Glucose 143 H 143 H Hemoglobin A1c Lactic Acid Calcium Magnesium Ferritin Total Bilirubin AST ALT Alkaline Phosphatase Lactate Dehydrogenase Total Creatine Kinase C-Reactive Protein Total Protein Albumin Triglycerides Arterial Blood Glucose Arterial Blood Ionized Calcium Ur Specific [place] Urine WBC (Auto) Vancomycin Trough Coronavirus (PCR) 12/08/20 12/08/20 12/09/20 06:10 06:10 04:24 WBC 12.0 H RBC 3.18 L Hgb 9.5 L Hct 28.9 L RDW Plt Count Lymph % (Auto) [place] % (Auto) Lymph # (Auto) [place] # (Auto) Baso # (Auto) Seg Neutrophils % Seg Neuts % (Manual) 95.0 H Lymphocytes % (Manual) 3.0 L Seg Neutrophils # Seg Neutrophils # Man 11.4 H Lymphocytes # (Manual) 0.4 L D-Dimer ABG pH POC ABG pCO2 76.2 H POC ABG pO2 52.8 L ABG pO2 ABG HCO3 ABG O2 Saturation ABG Base Excess ABG Hemoglobin 11.7 L ABG Oxyhemoglobin ABG Sodium 132.0 L ABG Potassium ABG Chloride 87.0 L ABG Glucose 118 H Oxyhemoglobin Carboxyhemoglobin Sodium 133 L Potassium Chloride 86.3 L Carbon Dioxide 53 H* BUN Creatinine 0.2 L Glucose 156 H POC Glucose Hemoglobin A1c Lactic Acid Calcium 7.6 L Magnesium Ferritin Total Bilirubin AST ALT Alkaline Phosphatase Lactate Dehydrogenase Total Creatine Kinase C-Reactive Protein Total Protein Albumin Triglycerides Arterial Blood Glucose 118 H Arterial Blood Ionized Calcium 4.2 L Ur Specific [place] Urine WBC (Auto) Vancomycin Trough Coronavirus (PCR) 12/09/20 12/09/20 12/09/20 05:44 06:40 06:40 WBC 13.5 H RBC 3.28 L Hgb 9.7 L Hct 29.9 L RDW Plt Count Lymph % (Auto) [place] % (Auto) Lymph # (Auto) [place] # (Auto) Baso # (Auto) Seg Neutrophils % Seg Neuts % (Manual) Lymphocytes % (Manual) Seg Neutrophils # Seg Neutrophils # Man Lymphocytes # (Manual) D-Dimer ABG pH POC ABG pCO2 POC ABG pO2 ABG pO2 ABG HCO3 ABG O2 Saturation ABG Base Excess ABG Hemoglobin ABG Oxyhemoglobin ABG Sodium ABG Potassium ABG Chloride ABG Glucose Oxyhemoglobin Carboxyhemoglobin Sodium 135 L Potassium Chloride 89.5 L Carbon Dioxide 52 H* BUN Creatinine 0.3 L Glucose 114 H POC Glucose 117 H Hemoglobin A1c Lactic Acid Calcium 7.6 L Magnesium Ferritin Total Bilirubin AST ALT Alkaline Phosphatase Lactate Dehydrogenase Total Creatine Kinase C-Reactive Protein Total Protein Albumin Triglycerides Arterial Blood Glucose Arterial Blood Ionized Calcium Ur Specific [place] Urine WBC (Auto) Vancomycin Trough Coronavirus (PCR) 12/09/20 12/09/20 12/10/20 16:42 21:11 04:28 WBC RBC Hgb Hct RDW Plt Count Lymph % (Auto) [place] % (Auto) Lymph # (Auto) [place] # (Auto) Baso # (Auto) Seg Neutrophils % Seg Neuts % (Manual) Lymphocytes % (Manual) Seg Neutrophils # Seg Neutrophils # Man Lymphocytes # (Manual) D-Dimer ABG pH POC ABG pCO2 72.5 H 69.4 H 76.9 H POC ABG pO2 50.4 L 80.6 L 60.2 L ABG pO2 ABG HCO3 ABG O2 Saturation ABG Base Excess ABG Hemoglobin 10.4 L 10.7 L 10 L ABG Oxyhemoglobin 84.3 L 89.7 L ABG Sodium 133.7 L 133.7 L 133.8 L ABG Potassium ABG Chloride 90.0 L 91.0 L 91.0 L ABG Glucose 116 H 96 H 57 L Oxyhemoglobin Carboxyhemoglobin 0.4 L Sodium Potassium Chloride Carbon Dioxide BUN Creatinine Glucose POC Glucose Hemoglobin A1c Lactic Acid Calcium Magnesium Ferritin Total Bilirubin AST ALT Alkaline Phosphatase Lactate Dehydrogenase Total Creatine Kinase C-Reactive Protein Total Protein Albumin Triglycerides Arterial Blood Glucose 116 H 96 H 57 L Arterial Blood Ionized Calcium 4.2 L 4.3 L 4.2 L Ur Specific [place] Urine WBC (Auto) Vancomycin Trough Coronavirus (PCR) 12/10/20 12/10/20 12/10/20 05:09 05:41 11:50 WBC RBC Hgb Hct RDW Plt Count Lymph % (Auto) [place] % (Auto) Lymph # (Auto) [place] # (Auto) Baso # (Auto) Seg Neutrophils % Seg Neuts % (Manual) Lymphocytes % (Manual) Seg Neutrophils # Seg Neutrophils # Man Lymphocytes # (Manual) D-Dimer ABG pH POC ABG pCO2 POC ABG pO2 ABG pO2 ABG HCO3 ABG O2 Saturation ABG Base Excess ABG Hemoglobin ABG Oxyhemoglobin ABG Sodium ABG Potassium ABG Chloride ABG Glucose Oxyhemoglobin Carboxyhemoglobin Sodium Potassium Chloride Carbon Dioxide BUN Creatinine Glucose POC Glucose 41 L 138 H 106 H Hemoglobin A1c Lactic Acid Calcium Magnesium Ferritin Total Bilirubin AST ALT Alkaline Phosphatase Lactate Dehydrogenase Total Creatine Kinase C-Reactive Protein Total Protein Albumin Triglycerides Arterial Blood Glucose Arterial Blood Ionized Calcium Ur Specific [place] Urine WBC (Auto) Vancomycin Trough Coronavirus (PCR) 12/10/20 12/10/20 12/11/20 17:34 23:25 04:06 WBC RBC Hgb Hct RDW Plt Count Lymph % (Auto) [place] % (Auto) Lymph # (Auto) [place] # (Auto) Baso # (Auto) Seg Neutrophils % Seg Neuts % (Manual) Lymphocytes % (Manual) Seg Neutrophils # Seg Neutrophils # Man Lymphocytes # (Manual) D-Dimer ABG pH POC ABG pCO2 71.0 H POC ABG pO2 56.8 L ABG pO2 ABG HCO3 ABG O2 Saturation ABG Base Excess ABG Hemoglobin 10.1 L ABG Oxyhemoglobin 88.5 L ABG Sodium 132.3 L ABG Potassium ABG Chloride 91.0 L ABG Glucose 168 H Oxyhemoglobin Carboxyhemoglobin Sodium Potassium Chloride Carbon Dioxide BUN Creatinine Glucose POC Glucose 121 H 167 H Hemoglobin A1c Lactic Acid Calcium Magnesium Ferritin Total Bilirubin AST ALT Alkaline Phosphatase Lactate Dehydrogenase Total Creatine Kinase C-Reactive Protein Total Protein Albumin Triglycerides Arterial Blood Glucose 168 H Arterial Blood Ionized Calcium 4.1 L Ur Specific [place] Urine WBC (Auto) Vancomycin Trough Coronavirus (PCR) 12/11/20 12/11/20 12/11/20 05:21 11:44 15:40 WBC RBC Hgb Hct RDW Plt Count Lymph % (Auto) [place] % (Auto) Lymph # (Auto) [place] # (Auto) Baso # (Auto) Seg Neutrophils % Seg Neuts % (Manual) Lymphocytes % (Manual) Seg Neutrophils # Seg Neutrophils # Man Lymphocytes # (Manual) D-Dimer ABG pH 7.454 H POC ABG pCO2 58.6 H POC ABG pO2 50.7 L ABG pO2 ABG HCO3 ABG O2 Saturation ABG Base Excess ABG Hemoglobin 10.1 L ABG Oxyhemoglobin 86.2 L ABG Sodium 131.2 L ABG Potassium ABG Chloride 92.0 L ABG Glucose 197 H Oxyhemoglobin Carboxyhemoglobin Sodium Potassium Chloride Carbon Dioxide BUN Creatinine Glucose POC Glucose 149 H 202 H Hemoglobin A1c Lactic Acid Calcium Magnesium Ferritin Total Bilirubin AST ALT Alkaline Phosphatase Lactate Dehydrogenase Total Creatine Kinase C-Reactive Protein Total Protein Albumin Triglycerides Arterial Blood Glucose 197 H Arterial Blood Ionized Calcium 4.2 L Ur Specific [place] Urine WBC (Auto) Vancomycin Trough Coronavirus (PCR) 12/11/20 12/11/20 12/12/20 17:09 23:16 05:09 WBC RBC Hgb Hct RDW Plt Count Lymph % (Auto) [place] % (Auto) Lymph # (Auto) [place] # (Auto) Baso # (Auto) Seg Neutrophils % Seg Neuts % (Manual) Lymphocytes % (Manual) Seg Neutrophils # Seg Neutrophils # Man Lymphocytes # (Manual) D-Dimer ABG pH POC ABG pCO2 63.1 H POC ABG pO2 62.6 L ABG pO2 ABG HCO3 ABG O2 Saturation ABG Base Excess ABG Hemoglobin 10.3 L ABG Oxyhemoglobin ABG Sodium 130.3 L ABG Potassium 4.6 H ABG Chloride 92.0 L ABG Glucose 215 H Oxyhemoglobin Carboxyhemoglobin Sodium Potassium Chloride Carbon Dioxide BUN Creatinine Glucose POC Glucose 181 H 192 H Hemoglobin A1c Lactic Acid Calcium Magnesium Ferritin Total Bilirubin AST ALT Alkaline Phosphatase Lactate Dehydrogenase Total Creatine Kinase C-Reactive Protein Total Protein Albumin Triglycerides Arterial Blood Glucose 215 H Arterial Blood Ionized Calcium 4.4 L Ur Specific [place] Urine WBC (Auto) Vancomycin Trough Coronavirus (PCR) 12/12/20 12/12/20 12/12/20 05:16 05:47 11:41 WBC RBC Hgb Hct RDW Plt Count Lymph % (Auto) [place] % (Auto) Lymph # (Auto) [place] # (Auto) Baso # (Auto) Seg Neutrophils % Seg Neuts % (Manual) Lymphocytes % (Manual) Seg Neutrophils # Seg Neutrophils # Man Lymphocytes # (Manual) D-Dimer ABG pH POC ABG pCO2 POC ABG pO2 ABG pO2 ABG HCO3 ABG O2 Saturation ABG Base Excess ABG Hemoglobin ABG Oxyhemoglobin ABG Sodium ABG Potassium ABG Chloride ABG Glucose Oxyhemoglobin Carboxyhemoglobin Sodium Potassium Chloride Carbon Dioxide BUN Creatinine Glucose POC Glucose 208 H 218 H Hemoglobin A1c Lactic Acid Calcium Magnesium Ferritin Total Bilirubin AST ALT Alkaline Phosphatase Lactate Dehydrogenase Total Creatine Kinase C-Reactive Protein Total Protein Albumin Triglycerides 150 H Arterial Blood Glucose Arterial Blood Ionized Calcium Ur Specific [place] Urine WBC (Auto) Vancomycin Trough Coronavirus (PCR) 12/12/20 12/12/20 12/13/20 17:05 23:18 03:36 WBC RBC Hgb Hct RDW Plt Count Lymph % (Auto) [place] % (Auto) Lymph # (Auto) [place] # (Auto) Baso # (Auto) Seg Neutrophils % Seg Neuts % (Manual) Lymphocytes % (Manual) Seg Neutrophils # Seg Neutrophils # Man Lymphocytes # (Manual) D-Dimer ABG pH POC ABG pCO2 61.5 H POC ABG pO2 77.6 L ABG pO2 ABG HCO3 ABG O2 Saturation ABG Base Excess ABG Hemoglobin 10.2 L ABG Oxyhemoglobin ABG Sodium 127.5 L ABG Potassium ABG Chloride 91.0 L ABG Glucose 232 H Oxyhemoglobin Carboxyhemoglobin Sodium Potassium Chloride Carbon Dioxide BUN Creatinine Glucose POC Glucose 187 H 176 H Hemoglobin A1c Lactic Acid Calcium Magnesium Ferritin Total Bilirubin AST ALT Alkaline Phosphatase Lactate Dehydrogenase Total Creatine Kinase C-Reactive Protein Total Protein Albumin Triglycerides Arterial Blood Glucose 232 H Arterial Blood Ionized Calcium 4.2 L Ur Specific [place] Urine WBC (Auto) Vancomycin Trough Coronavirus (PCR) 12/13/20 12/13/20 12/13/20 05:13 10:00 11:30 WBC RBC 3.50 L Hgb 10.5 L Hct 31.9 L RDW Plt Count Lymph % (Auto) [place] % (Auto) Lymph # (Auto) [place] # (Auto) Baso # (Auto) Seg Neutrophils % Seg Neuts % (Manual) 96.0 H Lymphocytes % (Manual) Seg Neutrophils # Seg Neutrophils # Man 9.2 H Lymphocytes # (Manual) 0.0 L D-Dimer ABG pH POC ABG pCO2 POC ABG pO2 ABG pO2 ABG HCO3 ABG O2 Saturation ABG Base Excess ABG Hemoglobin ABG Oxyhemoglobin ABG Sodium ABG Potassium ABG Chloride ABG Glucose Oxyhemoglobin Carboxyhemoglobin Sodium Potassium Chloride Carbon Dioxide BUN Creatinine Glucose POC Glucose 204 H Hemoglobin A1c Lactic Acid Calcium Magnesium Ferritin Total Bilirubin AST ALT Alkaline Phosphatase Lactate Dehydrogenase Total Creatine Kinase C-Reactive Protein Total Protein Albumin Triglycerides Arterial Blood Glucose Arterial Blood Ionized Calcium Ur Specific [place] Urine WBC (Auto) Vancomycin Trough Coronavirus (PCR) Positive A 12/13/20 12/13/20 12/13/20 11:30 12:01 18:04 WBC RBC Hgb Hct RDW Plt Count Lymph % (Auto) [place] % (Auto) Lymph # (Auto) [place] # (Auto) Baso # (Auto) Seg Neutrophils % Seg Neuts % (Manual) Lymphocytes % (Manual) Seg Neutrophils # Seg Neutrophils # Man Lymphocytes # (Manual) D-Dimer ABG pH POC ABG pCO2 POC ABG pO2 ABG pO2 ABG HCO3 ABG O2 Saturation ABG Base Excess ABG Hemoglobin ABG Oxyhemoglobin ABG Sodium ABG Potassium ABG Chloride ABG Glucose Oxyhemoglobin Carboxyhemoglobin Sodium 132 L Potassium Chloride 90.1 L Carbon Dioxide 41 H* D BUN Creatinine 0.2 L Glucose 249 H POC Glucose 224 H 172 H Hemoglobin A1c Lactic Acid Calcium 7.4 L Magnesium Ferritin Total Bilirubin AST ALT 61 H Alkaline Phosphatase Lactate Dehydrogenase Total Creatine Kinase C-Reactive Protein Total Protein 5.7 L Albumin 2.3 L Triglycerides Arterial Blood Glucose Arterial Blood Ionized Calcium Ur Specific [place] Urine WBC (Auto) Vancomycin Trough Coronavirus (PCR) 12/13/20 12/14/20 12/14/20 23:37 04:05 04:35 WBC RBC 3.37 L Hgb 10.1 L Hct 30.7 L RDW 15.4 H Plt Count Lymph % (Auto) [place] % (Auto) Lymph # (Auto) [place] # (Auto) Baso # (Auto) Seg Neutrophils % Seg Neuts % (Manual) 93.0 H Lymphocytes % (Manual) 3.0 L Seg Neutrophils # Seg Neutrophils # Man 7.8 H Lymphocytes # (Manual) 0.3 L D-Dimer ABG pH POC ABG pCO2 72.2 H POC ABG pO2 61.5 L ABG pO2 ABG HCO3 ABG O2 Saturation ABG Base Excess ABG Hemoglobin ABG Oxyhemoglobin 89.9 L ABG Sodium 131.4 L ABG Potassium ABG Chloride 91.0 L ABG Glucose 205 H Oxyhemoglobin Carboxyhemoglobin Sodium Potassium Chloride Carbon Dioxide BUN Creatinine Glucose POC Glucose 200 H Hemoglobin A1c Lactic Acid Calcium Magnesium Ferritin Total Bilirubin AST ALT Alkaline Phosphatase Lactate Dehydrogenase Total Creatine Kinase C-Reactive Protein Total Protein Albumin Triglycerides Arterial Blood Glucose 205 H Arterial Blood Ionized Calcium 4.3 L Ur Specific [place] Urine WBC (Auto) Vancomycin Trough Coronavirus (PCR) 12/14/20 12/14/20 12/14/20 04:35 05:12 11:31 WBC RBC Hgb Hct RDW Plt Count Lymph % (Auto) [place] % (Auto) Lymph # (Auto) [place] # (Auto) Baso # (Auto) Seg Neutrophils % Seg Neuts % (Manual) Lymphocytes % (Manual) Seg Neutrophils # Seg Neutrophils # Man Lymphocytes # (Manual) D-Dimer ABG pH POC ABG pCO2 POC ABG pO2 ABG pO2 ABG HCO3 ABG O2 Saturation ABG Base Excess ABG Hemoglobin ABG Oxyhemoglobin ABG Sodium ABG Potassium ABG Chloride ABG Glucose Oxyhemoglobin Carboxyhemoglobin Sodium 135 L Potassium Chloride 92.5 L Carbon Dioxide 38 H BUN Creatinine 0.2 L Glucose 184 H POC Glucose 176 H 212 H Hemoglobin A1c Lactic Acid Calcium 7.7 L Magnesium Ferritin Total Bilirubin AST ALT Alkaline Phosphatase Lactate Dehydrogenase Total Creatine Kinase C-Reactive Protein Total Protein Albumin Triglycerides Arterial Blood Glucose Arterial Blood Ionized Calcium Ur Specific [place] Urine WBC (Auto) Vancomycin Trough Coronavirus (PCR) 12/14/20 12/14/20 12/15/20 17:30 23:30 03:19 WBC RBC Hgb Hct RDW Plt Count Lymph % (Auto) [place] % (Auto) Lymph # (Auto) [place] # (Auto) Baso # (Auto) Seg Neutrophils % Seg Neuts % (Manual) Lymphocytes % (Manual) Seg Neutrophils # Seg Neutrophils # Man Lymphocytes # (Manual) D-Dimer ABG pH POC ABG pCO2 62.0 H POC ABG pO2 66.0 L ABG pO2 ABG HCO3 ABG O2 Saturation ABG Base Excess ABG Hemoglobin 10.3 L ABG Oxyhemoglobin ABG Sodium 130.5 L ABG Potassium ABG Chloride 91.0 L ABG Glucose 166 H Oxyhemoglobin Carboxyhemoglobin Sodium Potassium Chloride Carbon Dioxide BUN Creatinine Glucose POC Glucose 222 H 176 H Hemoglobin A1c Lactic Acid Calcium Magnesium Ferritin Total Bilirubin AST ALT Alkaline Phosphatase Lactate Dehydrogenase Total Creatine Kinase C-Reactive Protein Total Protein Albumin Triglycerides Arterial Blood Glucose 166 H Arterial Blood Ionized Calcium 4.4 L Ur Specific [place] Urine WBC (Auto) Vancomycin Trough Coronavirus (PCR) 12/15/20 12/15/20 12/15/20 05:24 11:39 17:30 WBC RBC Hgb Hct RDW Plt Count Lymph % (Auto) [place] % (Auto) Lymph # (Auto) [place] # (Auto) Baso # (Auto) Seg Neutrophils % Seg Neuts % (Manual) Lymphocytes % (Manual) Seg Neutrophils # Seg Neutrophils # Man Lymphocytes # (Manual) D-Dimer ABG pH POC ABG pCO2 POC ABG pO2 ABG pO2 ABG HCO3 ABG O2 Saturation ABG Base Excess ABG Hemoglobin ABG Oxyhemoglobin ABG Sodium ABG Potassium ABG Chloride ABG Glucose Oxyhemoglobin Carboxyhemoglobin Sodium Potassium Chloride Carbon Dioxide BUN Creatinine Glucose POC Glucose 160 H 140 H 246 H Hemoglobin A1c Lactic Acid Calcium Magnesium Ferritin Total Bilirubin AST ALT Alkaline Phosphatase Lactate Dehydrogenase Total Creatine Kinase C-Reactive Protein Total Protein Albumin Triglycerides Arterial Blood Glucose Arterial Blood Ionized Calcium Ur Specific [place] Urine WBC (Auto) Vancomycin Trough Coronavirus (PCR) 12/15/20 12/16/20 12/16/20 23:42 03:54 04:46 WBC RBC 3.48 L Hgb 10.6 L Hct 31.5 L RDW 15.8 H Plt Count Lymph % (Auto) [place] % (Auto) Lymph # (Auto) [place] # (Auto) Baso # (Auto) Seg Neutrophils % Seg Neuts % (Manual) Lymphocytes % (Manual) Seg Neutrophils # Seg Neutrophils # Man Lymphocytes # (Manual) D-Dimer ABG pH POC ABG pCO2 63.6 H POC ABG pO2 55.0 L ABG pO2 ABG HCO3 ABG O2 Saturation ABG Base Excess ABG Hemoglobin 11.1 L ABG Oxyhemoglobin 87.3 L ABG Sodium 130.7 L ABG Potassium ABG Chloride 89.0 L ABG Glucose 211 H Oxyhemoglobin Carboxyhemoglobin Sodium Potassium Chloride Carbon Dioxide BUN Creatinine Glucose POC Glucose 139 H Hemoglobin A1c Lactic Acid Calcium Magnesium Ferritin Total Bilirubin AST ALT Alkaline Phosphatase Lactate Dehydrogenase Total Creatine Kinase C-Reactive Protein Total Protein Albumin Triglycerides Arterial Blood Glucose 211 H Arterial Blood Ionized Calcium 4.3 L Ur Specific [place] Urine WBC (Auto) Vancomycin Trough Coronavirus (PCR) 12/16/20 12/16/20 12/16/20 04:46 05:34 11:40 WBC RBC Hgb Hct RDW Plt Count Lymph % (Auto) [place] % (Auto) Lymph # (Auto) [place] # (Auto) Baso # (Auto) Seg Neutrophils % Seg Neuts % (Manual) Lymphocytes % (Manual) Seg Neutrophils # Seg Neutrophils # Man Lymphocytes # (Manual) D-Dimer ABG pH POC ABG pCO2 POC ABG pO2 ABG pO2 ABG HCO3 ABG O2 Saturation ABG Base Excess ABG Hemoglobin ABG Oxyhemoglobin ABG Sodium ABG Potassium ABG Chloride ABG Glucose Oxyhemoglobin Carboxyhemoglobin Sodium 134 L Potassium Chloride 89.7 L Carbon Dioxide 38 H BUN Creatinine < 0.2 L Glucose 203 H POC Glucose 155 H 239 H Hemoglobin A1c Lactic Acid Calcium 7.5 L Magnesium Ferritin Total Bilirubin AST ALT Alkaline Phosphatase Lactate Dehydrogenase Total Creatine Kinase C-Reactive Protein Total Protein Albumin Triglycerides Arterial Blood Glucose Arterial Blood Ionized Calcium Ur Specific [place] Urine WBC (Auto) Vancomycin Trough Coronavirus (PCR) 12/16/20 12/16/20 12/17/20 17:42 23:45 03:59 WBC RBC Hgb Hct RDW Plt Count Lymph % (Auto) [place] % (Auto) Lymph # (Auto) [place] # (Auto) Baso # (Auto) Seg Neutrophils % Seg Neuts % (Manual) Lymphocytes % (Manual) Seg Neutrophils # Seg Neutrophils # Man Lymphocytes # (Manual) D-Dimer ABG pH POC ABG pCO2 71.9 H POC ABG pO2 57.5 L ABG pO2 ABG HCO3 ABG O2 Saturation ABG Base Excess ABG Hemoglobin 10.8 L ABG Oxyhemoglobin 87.7 L ABG Sodium 131.5 L ABG Potassium ABG Chloride 90.0 L ABG Glucose 199 H Oxyhemoglobin Carboxyhemoglobin Sodium Potassium Chloride Carbon Dioxide BUN Creatinine Glucose POC Glucose 228 H 187 H Hemoglobin A1c Lactic Acid Calcium Magnesium Ferritin Total Bilirubin AST ALT Alkaline Phosphatase Lactate Dehydrogenase Total Creatine Kinase C-Reactive Protein Total Protein Albumin Triglycerides Arterial Blood Glucose 199 H Arterial Blood Ionized Calcium 4.4 L Ur Specific [place] Urine WBC (Auto) Vancomycin Trough Coronavirus (PCR) 12/17/20 12/17/20 12/17/20 05:35 11:55 17:25 WBC RBC Hgb Hct RDW Plt Count Lymph % (Auto) [place] % (Auto) Lymph # (Auto) [place] # (Auto) Baso # (Auto) Seg Neutrophils % Seg Neuts % (Manual) Lymphocytes % (Manual) Seg Neutrophils # Seg Neutrophils # Man Lymphocytes # (Manual) D-Dimer ABG pH POC ABG pCO2 POC ABG pO2 ABG pO2 ABG HCO3 ABG O2 Saturation ABG Base Excess ABG Hemoglobin ABG Oxyhemoglobin ABG Sodium ABG Potassium ABG Chloride ABG Glucose Oxyhemoglobin Carboxyhemoglobin Sodium 134 L Potassium Chloride 89.6 L Carbon Dioxide 44 H* BUN Creatinine 0.2 L Glucose 280 H POC Glucose 159 H 181 H Hemoglobin A1c Lactic Acid Calcium 8.0 L Magnesium 1.60 L Ferritin Total Bilirubin AST ALT Alkaline Phosphatase Lactate Dehydrogenase Total Creatine Kinase C-Reactive Protein Total Protein 6.2 L Albumin 2.1 L Triglycerides Arterial Blood Glucose Arterial Blood Ionized Calcium Ur Specific [place] Urine WBC (Auto) Vancomycin Trough Coronavirus (PCR) 12/17/20 12/17/20 12/18/20 17:25 17:51 00:12 WBC RBC Hgb Hct RDW Plt Count Lymph % (Auto) [place] % (Auto) Lymph # (Auto) [place] # (Auto) Baso # (Auto) Seg Neutrophils % Seg Neuts % (Manual) Lymphocytes % (Manual) Seg Neutrophils # Seg Neutrophils # Man Lymphocytes # (Manual) D-Dimer ABG pH POC ABG pCO2 POC ABG pO2 ABG pO2 ABG HCO3 ABG O2 Saturation ABG Base Excess ABG Hemoglobin ABG Oxyhemoglobin ABG Sodium ABG Potassium ABG Chloride ABG Glucose Oxyhemoglobin Carboxyhemoglobin Sodium Potassium Chloride Carbon Dioxide BUN Creatinine Glucose POC Glucose 260 H 197 H Hemoglobin A1c Lactic Acid Calcium Magnesium Ferritin Total Bilirubin AST ALT Alkaline Phosphatase Lactate Dehydrogenase Total Creatine Kinase 47 L C-Reactive Protein Total Protein Albumin Triglycerides Arterial Blood Glucose Arterial Blood Ionized Calcium Ur Specific [place] Urine WBC (Auto) Vancomycin Trough Coronavirus (PCR) 12/18/20 12/18/20 12/18/20 03:56 04:32 04:32 WBC RBC 2.88 L Hgb 8.6 L Hct 26.0 L RDW 15.6 H Plt Count Lymph % (Auto) [place] % (Auto) Lymph # (Auto) [place] # (Auto) Baso # (Auto) Seg Neutrophils % Seg Neuts % (Manual) Lymphocytes % (Manual) Seg Neutrophils # Seg Neutrophils # Man Lymphocytes # (Manual) D-Dimer ABG pH POC ABG pCO2 78.0 H POC ABG pO2 52.3 L ABG pO2 ABG HCO3 ABG O2 Saturation ABG Base Excess ABG Hemoglobin 11.7 L ABG Oxyhemoglobin 84.9 L ABG Sodium 131.6 L ABG Potassium ABG Chloride 89.0 L ABG Glucose 191 H Oxyhemoglobin Carboxyhemoglobin Sodium 134 L Potassium Chloride 89.5 L Carbon Dioxide 43 H* BUN Creatinine < 0.2 L Glucose 182 H POC Glucose Hemoglobin A1c Lactic Acid Calcium 8.1 L Magnesium Ferritin Total Bilirubin AST ALT Alkaline Phosphatase Lactate Dehydrogenase Total Creatine Kinase C-Reactive Protein Total Protein Albumin Triglycerides Arterial Blood Glucose 191 H Arterial Blood Ionized Calcium 4.4 L Ur Specific [place] Urine WBC (Auto) Vancomycin Trough Coronavirus (PCR) 12/18/20 12/18/20 12/18/20 05:19 08:27 11:37 WBC RBC Hgb Hct RDW Plt Count Lymph % (Auto) [place] % (Auto) Lymph # (Auto) [place] # (Auto) Baso # (Auto) Seg Neutrophils % Seg Neuts % (Manual) Lymphocytes % (Manual) Seg Neutrophils # Seg Neutrophils # Man Lymphocytes # (Manual) D-Dimer ABG pH POC ABG pCO2 POC ABG pO2 ABG pO2 ABG HCO3 ABG O2 Saturation ABG Base Excess ABG Hemoglobin ABG Oxyhemoglobin ABG Sodium ABG Potassium ABG Chloride ABG Glucose Oxyhemoglobin Carboxyhemoglobin Sodium 131 L Potassium Chloride 89.0 L Carbon Dioxide 41 H* BUN Creatinine < 0.2 L Glucose 176 H POC Glucose 165 H 174 H Hemoglobin A1c Lactic Acid Calcium 7.5 L Magnesium Ferritin Total Bilirubin AST ALT Alkaline Phosphatase Lactate Dehydrogenase Total Creatine Kinase C-Reactive Protein Total Protein Albumin Triglycerides Arterial Blood Glucose Arterial Blood Ionized Calcium Ur Specific [place] Urine WBC (Auto) Vancomycin Trough Coronavirus (PCR) 12/18/20 12/18/20 12/19/20 17:26 23:19 03:41 WBC RBC Hgb Hct RDW Plt Count Lymph % (Auto) [place] % (Auto) Lymph # (Auto) [place] # (Auto) Baso # (Auto) Seg Neutrophils % Seg Neuts % (Manual) Lymphocytes % (Manual) Seg Neutrophils # Seg Neutrophils # Man Lymphocytes # (Manual) D-Dimer ABG pH POC ABG pCO2 75.4 H POC ABG pO2 50.7 L ABG pO2 ABG HCO3 ABG O2 Saturation ABG Base Excess ABG Hemoglobin 10.4 L ABG Oxyhemoglobin 84.2 L ABG Sodium 131.1 L ABG Potassium ABG Chloride 89.0 L ABG Glucose 194 H Oxyhemoglobin Carboxyhemoglobin 1.6 H Sodium Potassium Chloride Carbon Dioxide BUN Creatinine Glucose POC Glucose 243 H 212 H Hemoglobin A1c Lactic Acid Calcium Magnesium Ferritin Total Bilirubin AST ALT Alkaline Phosphatase Lactate Dehydrogenase Total Creatine Kinase C-Reactive Protein Total Protein Albumin Triglycerides Arterial Blood Glucose 194 H Arterial Blood Ionized Calcium 4.3 L Ur Specific [place] Urine WBC (Auto) Vancomycin Trough Coronavirus (PCR) 12/19/20 12/19/20 12/19/20 05:26 11:56 18:17 WBC RBC Hgb Hct RDW Plt Count Lymph % (Auto) [place] % (Auto) Lymph # (Auto) [place] # (Auto) Baso # (Auto) Seg Neutrophils % Seg Neuts % (Manual) Lymphocytes % (Manual) Seg Neutrophils # Seg Neutrophils # Man Lymphocytes # (Manual) D-Dimer ABG pH POC ABG pCO2 POC ABG pO2 ABG pO2 ABG HCO3 ABG O2 Saturation ABG Base Excess ABG Hemoglobin ABG Oxyhemoglobin ABG Sodium ABG Potassium ABG Chloride ABG Glucose Oxyhemoglobin Carboxyhemoglobin Sodium Potassium Chloride Carbon Dioxide BUN Creatinine Glucose POC Glucose 166 H 173 H 212 H Hemoglobin A1c Lactic Acid Calcium Magnesium Ferritin Total Bilirubin AST ALT Alkaline Phosphatase Lactate Dehydrogenase Total Creatine Kinase C-Reactive Protein Total Protein Albumin Triglycerides Arterial Blood Glucose Arterial Blood Ionized Calcium Ur Specific [place] Urine WBC (Auto) Vancomycin Trough Coronavirus (PCR) 12/19/20 12/19/20 12/20/20 23:39 Unknown 03:26 WBC RBC Hgb Hct RDW Plt Count Lymph % (Auto) [place] % (Auto) Lymph # (Auto) [place] # (Auto) Baso # (Auto) Seg Neutrophils % Seg Neuts % (Manual) Lymphocytes % (Manual) Seg Neutrophils # Seg Neutrophils # Man Lymphocytes # (Manual) D-Dimer ABG pH POC ABG pCO2 74.2 H POC ABG pO2 51.3 L ABG pO2 ABG HCO3 ABG O2 Saturation ABG Base Excess ABG Hemoglobin 10.0 L ABG Oxyhemoglobin ABG Sodium 128.9 L ABG Potassium ABG Chloride 87.0 L ABG Glucose 173 H Oxyhemoglobin Carboxyhemoglobin Sodium 133 L Potassium Chloride 89.9 L Carbon Dioxide 39 H BUN Creatinine 0.2 L Glucose 197 H POC Glucose 133 H Hemoglobin A1c Lactic Acid Calcium 7.6 L Magnesium Ferritin Total Bilirubin AST ALT Alkaline Phosphatase Lactate Dehydrogenase Total Creatine Kinase C-Reactive Protein Total Protein Albumin Triglycerides Arterial Blood Glucose 173 H Arterial Blood Ionized Calcium 4.1 L Ur Specific [place] Urine WBC (Auto) Vancomycin Trough Coronavirus (PCR) 12/20/20 12/20/20 12/20/20 04:00 04:00 05:05 WBC RBC 3.21 L Hgb 9.6 L Hct 29.2 L RDW 15.8 H Plt Count Lymph % (Auto) [place] % (Auto) Lymph # (Auto) [place] # (Auto) Baso # (Auto) Seg Neutrophils % Seg Neuts % (Manual) Lymphocytes % (Manual) Seg Neutrophils # Seg Neutrophils # Man Lymphocytes # (Manual) D-Dimer ABG pH POC ABG pCO2 POC ABG pO2 ABG pO2 ABG HCO3 ABG O2 Saturation ABG Base Excess ABG Hemoglobin ABG Oxyhemoglobin ABG Sodium ABG Potassium ABG Chloride ABG Glucose Oxyhemoglobin Carboxyhemoglobin Sodium 132 L Potassium Chloride 86.0 L Carbon Dioxide 43 H* BUN Creatinine 0.2 L Glucose 193 H POC Glucose 171 H Hemoglobin A1c Lactic Acid Calcium 7.6 L Magnesium Ferritin Total Bilirubin AST ALT Alkaline Phosphatase Lactate Dehydrogenase Total Creatine Kinase C-Reactive Protein Total Protein Albumin Triglycerides Arterial Blood Glucose Arterial Blood Ionized Calcium Ur Specific [place] Urine WBC (Auto) Vancomycin Trough Coronavirus (PCR) 12/20/20 12/20/20 12/20/20 11:47 18:18 23:41 WBC RBC Hgb Hct RDW Plt Count Lymph % (Auto) [place] % (Auto) Lymph # (Auto) [place] # (Auto) Baso # (Auto) Seg Neutrophils % Seg Neuts % (Manual) Lymphocytes % (Manual) Seg Neutrophils # Seg Neutrophils # Man Lymphocytes # (Manual) D-Dimer ABG pH POC ABG pCO2 POC ABG pO2 ABG pO2 ABG HCO3 ABG O2 Saturation ABG Base Excess ABG Hemoglobin ABG Oxyhemoglobin ABG Sodium ABG Potassium ABG Chloride ABG Glucose Oxyhemoglobin Carboxyhemoglobin Sodium Potassium Chloride Carbon Dioxide BUN Creatinine Glucose POC Glucose 238 H 205 H 167 H Hemoglobin A1c Lactic Acid Calcium Magnesium Ferritin Total Bilirubin AST ALT Alkaline Phosphatase Lactate Dehydrogenase Total Creatine Kinase C-Reactive Protein Total Protein Albumin Triglycerides Arterial Blood Glucose Arterial Blood Ionized Calcium Ur Specific [place] Urine WBC (Auto) Vancomycin Trough Coronavirus (PCR) 12/21/20 12/21/20 12/21/20 03:30 05:37 09:57 WBC RBC Hgb Hct RDW Plt Count Lymph % (Auto) [place] % (Auto) Lymph # (Auto) [place] # (Auto) Baso # (Auto) Seg Neutrophils % Seg Neuts % (Manual) Lymphocytes % (Manual) Seg Neutrophils # Seg Neutrophils # Man Lymphocytes # (Manual) D-Dimer ABG pH POC ABG pCO2 73.4 H POC ABG pO2 63.0 L ABG pO2 ABG HCO3 ABG O2 Saturation ABG Base Excess ABG Hemoglobin 10.1 L ABG Oxyhemoglobin ABG Sodium 130.5 L ABG Potassium ABG Chloride 89.0 L ABG Glucose 171 H Oxyhemoglobin Carboxyhemoglobin Sodium 132 L Potassium Chloride 87.7 L Carbon Dioxide 42 H* BUN Creatinine 0.2 L Glucose 207 H POC Glucose 152 H Hemoglobin A1c Lactic Acid Calcium 7.7 L Magnesium Ferritin Total Bilirubin AST ALT Alkaline Phosphatase Lactate Dehydrogenase Total Creatine Kinase C-Reactive Protein Total Protein Albumin Triglycerides Arterial Blood Glucose 171 H Arterial Blood Ionized Calcium 4.2 L Ur Specific [place] Urine WBC (Auto) Vancomycin Trough Coronavirus (PCR) 12/21/20 12/21/20 12/21/20 12:54 18:00 Unknown WBC RBC Hgb Hct RDW Plt Count Lymph % (Auto) [place] % (Auto) Lymph # (Auto) [place] # (Auto) Baso # (Auto) Seg Neutrophils % Seg Neuts % (Manual) Lymphocytes % (Manual) Seg Neutrophils # Seg Neutrophils # Man Lymphocytes # (Manual) D-Dimer ABG pH POC ABG pCO2 POC ABG pO2 ABG pO2 ABG HCO3 ABG O2 Saturation ABG Base Excess ABG Hemoglobin ABG Oxyhemoglobin ABG Sodium ABG Potassium ABG Chloride ABG Glucose Oxyhemoglobin Carboxyhemoglobin Sodium Potassium Chloride Carbon Dioxide BUN Creatinine Glucose POC Glucose 199 H 217 H Hemoglobin A1c Lactic Acid Calcium Magnesium Ferritin Total Bilirubin AST ALT Alkaline Phosphatase Lactate Dehydrogenase Total Creatine Kinase C-Reactive Protein Total Protein Albumin Triglycerides Arterial Blood Glucose Arterial Blood Ionized Calcium Ur Specific [place] Urine WBC (Auto) 172.0 H Vancomycin Trough Coronavirus (PCR) 12/22/20 12/22/20 12/22/20 00:02 04:08 05:19 WBC RBC Hgb Hct RDW Plt Count Lymph % (Auto) [place] % (Auto) Lymph # (Auto) [place] # (Auto) Baso # (Auto) Seg Neutrophils % Seg Neuts % (Manual) Lymphocytes % (Manual) Seg Neutrophils # Seg Neutrophils # Man Lymphocytes # (Manual) D-Dimer ABG pH POC ABG pCO2 67.6 H POC ABG pO2 57.3 L ABG pO2 ABG HCO3 ABG O2 Saturation ABG Base Excess ABG Hemoglobin ABG Oxyhemoglobin ABG Sodium 130.9 L ABG Potassium ABG Chloride 92.0 L ABG Glucose 163 H Oxyhemoglobin Carboxyhemoglobin Sodium Potassium Chloride Carbon Dioxide BUN Creatinine Glucose POC Glucose 172 H 151 H Hemoglobin A1c Lactic Acid Calcium Magnesium Ferritin Total Bilirubin AST ALT Alkaline Phosphatase Lactate Dehydrogenase Total Creatine Kinase C-Reactive Protein Total Protein Albumin Triglycerides Arterial Blood Glucose 163 H Arterial Blood Ionized Calcium 4.2 L Ur Specific [place] Urine WBC (Auto) Vancomycin Trough Coronavirus (PCR) 12/22/20 12/22/20 12/22/20 11:33 17:20 23:25 WBC RBC Hgb Hct RDW Plt Count Lymph % (Auto) [place] % (Auto) Lymph # (Auto) [place] # (Auto) Baso # (Auto) Seg Neutrophils % Seg Neuts % (Manual) Lymphocytes % (Manual) Seg Neutrophils # Seg Neutrophils # Man Lymphocytes # (Manual) D-Dimer ABG pH POC ABG pCO2 POC ABG pO2 ABG pO2 ABG HCO3 ABG O2 Saturation ABG Base Excess ABG Hemoglobin ABG Oxyhemoglobin ABG Sodium ABG Potassium ABG Chloride ABG Glucose Oxyhemoglobin Carboxyhemoglobin Sodium Potassium Chloride Carbon Dioxide BUN Creatinine Glucose POC Glucose 181 H 166 H 121 H Hemoglobin A1c Lactic Acid Calcium Magnesium Ferritin Total Bilirubin AST ALT Alkaline Phosphatase Lactate Dehydrogenase Total Creatine Kinase C-Reactive Protein Total Protein Albumin Triglycerides Arterial Blood Glucose Arterial Blood Ionized Calcium Ur Specific [place] Urine WBC (Auto) Vancomycin Trough Coronavirus (PCR) 12/23/20 12/23/20 12/23/20 05:19 05:32 06:07 WBC RBC Hgb Hct RDW Plt Count Lymph % (Auto) [place] % (Auto) Lymph # (Auto) [place] # (Auto) Baso # (Auto) Seg Neutrophils % Seg Neuts % (Manual) Lymphocytes % (Manual) Seg Neutrophils # Seg Neutrophils # Man Lymphocytes # (Manual) D-Dimer ABG pH POC ABG pCO2 67.7 H POC ABG pO2 53.7 L ABG pO2 ABG HCO3 ABG O2 Saturation ABG Base Excess ABG Hemoglobin 9.6 L ABG Oxyhemoglobin ABG Sodium 130.2 L ABG Potassium ABG Chloride 88.0 L ABG Glucose 195 H Oxyhemoglobin Carboxyhemoglobin Sodium 135 L Potassium Chloride 89.3 L Carbon Dioxide 43 H* BUN Creatinine 0.2 L Glucose 193 H POC Glucose 167 H Hemoglobin A1c Lactic Acid Calcium 7.4 L Magnesium Ferritin Total Bilirubin AST ALT Alkaline Phosphatase Lactate Dehydrogenase Total Creatine Kinase C-Reactive Protein Total Protein Albumin Triglycerides Arterial Blood Glucose 195 H Arterial Blood Ionized Calcium 4.1 L Ur Specific [place] Urine WBC (Auto) Vancomycin Trough Coronavirus (PCR) 12/23/20 12/23/20 12/23/20 11:21 18:10 23:21 WBC RBC Hgb Hct RDW Plt Count Lymph % (Auto) [place] % (Auto) Lymph # (Auto) [place] # (Auto) Baso # (Auto) Seg Neutrophils % Seg Neuts % (Manual) Lymphocytes % (Manual) Seg Neutrophils # Seg Neutrophils # Man Lymphocytes # (Manual) D-Dimer ABG pH POC ABG pCO2 POC ABG pO2 ABG pO2 ABG HCO3 ABG O2 Saturation ABG Base Excess ABG Hemoglobin ABG Oxyhemoglobin ABG Sodium ABG Potassium ABG Chloride ABG Glucose Oxyhemoglobin Carboxyhemoglobin Sodium Potassium Chloride Carbon Dioxide BUN Creatinine Glucose POC Glucose 155 H 178 H 126 H Hemoglobin A1c Lactic Acid Calcium Magnesium Ferritin Total Bilirubin AST ALT Alkaline Phosphatase Lactate Dehydrogenase Total Creatine Kinase C-Reactive Protein Total Protein Albumin Triglycerides Arterial Blood Glucose Arterial Blood Ionized Calcium Ur Specific [place] Urine WBC (Auto) Vancomycin Trough Coronavirus (PCR) 12/24/20 12/24/20 12/24/20 04:49 05:00 05:19 WBC RBC Hgb Hct RDW Plt Count Lymph % (Auto) [place] % (Auto) Lymph # (Auto) [place] # (Auto) Baso # (Auto) Seg Neutrophils % Seg Neuts % (Manual) Lymphocytes % (Manual) Seg Neutrophils # Seg Neutrophils # Man Lymphocytes # (Manual) D-Dimer ABG pH POC ABG pCO2 75.5 H POC ABG pO2 50.5 L ABG pO2 ABG HCO3 ABG O2 Saturation ABG Base Excess ABG Hemoglobin 8.8 L ABG Oxyhemoglobin 86.3 L ABG Sodium 131.6 L ABG Potassium ABG Chloride 88.0 L ABG Glucose 186 H Oxyhemoglobin Carboxyhemoglobin 2.1 H Sodium Potassium Chloride Carbon Dioxide BUN Creatinine Glucose POC Glucose 162 H Hemoglobin A1c Lactic Acid Calcium Magnesium Ferritin Total Bilirubin AST ALT Alkaline Phosphatase Lactate Dehydrogenase Total Creatine Kinase C-Reactive Protein Total Protein Albumin Triglycerides 486 H Arterial Blood Glucose 186 H Arterial Blood Ionized Calcium 4.0 L Ur Specific [place] Urine WBC (Auto) Vancomycin Trough Coronavirus (PCR)
[2020-12-24] MEDS: MIDAZOLAM 100 MG in SODIUM CHLORIDE 0.9% 80 ML IV SCH (12:56)
[2020-12-24] MEDS ORDERED: FUROSEMIDE 40 MG/4 ML INJ IV SCH (14:00)
--- NOTE | 2020-12-24 15:04 | XRay Report ---
CHEST 1 VIEW 12/24/2020 1:49 PM INDICATION / CLINICAL INFORMATION: Worsening hypoxia. COMPARISON: 12/24/2020 FINDINGS: SUPPORT DEVICES: Bilateral chest tubes, ET tube and NG tube and right PICC line are unchanged in posi tion. HEART / MEDIASTINUM: No significant abnormality. LUNGS / PLEURA: Extensive bilateral parenchymal disease again noted. Probable pneumatocele right lung . New moderate to large right apical pneumothorax has developed ADDITIONAL FINDINGS: No significant additional findings. IMPRESSION: 1. New moderate to large right apical pneumothorax with bilateral chest tubes CRITICAL RESULT: right PTX Time of Discovery (GRAD INTERN/CDT): 1:55 PM central time 12/24/2020 Time of Communication (GRAD INTERN/CDT): 1:58 PM Licensed Practitioner Receiving Report: Nurse Chung Read-Back Performed: Yes. Signer Name: Royce Payan MD Signed: 12/24/2020 3:00 PM Workstation Name: [email or web address]
--- NOTE | 2020-12-24 15:35 | Consultation ---
History of Present Illness Consult date: 12/24/20 Chief complaint: Right PTX - History of present illness History of present illness: 60 yo male, intubated, on PEEP of 22 and FIO2 1.0 with spontaneous right PTX, prob 2/2 barotrauma. Current O2 sat 54%. Past History Past Medical History: other (unknown) Past Surgical History: Other (unknown) Social history: other (unknown) Family history: other (unknown) Medications and Allergies Allergies Allergy/AdvReac Type Severity Reaction Status Date / Time No Known Allergies Allergy Verified 11/16/20 00:01 Home Medications Medication Instructions Recorded Confirmed Last Taken Type No Known Home Medications [No 11/15/20 11/15/20 Unknown History Reported Home Medications] Active Meds: Active Medications Acetaminophen (Acetaminophen 325 Mg Tab) 650 mg PO Q4H PRN PRN Reason: Pain MILD(1-3)/Fever >100.5/BUTTS Last Admin: 12/24/20 14:06 Dose: 650 mg Documented by: Lipase/Protease/Amylase (Lipase 10,500/Protease 25,000/Amylase 43,750 (Units) Dr Slater) 1 each FEEDTUBE PRN PRN PRN Reason: For Clogged Feeding Tube Last Admin: 12/05/20 23:45 Dose: 1 each Documented by: Dextrose (Dextrose 50% In Water (25gm) 50 Ml Syringe) 25 ml IV Q30MIN PRN; Protocol PRN Reason: Hypoglycemia Last Admin: 12/10/20 05:24 Dose: 25 ml Documented by: Docusate Sodium (Docusate Sodium 100 Mg/10 Ml Oral Liqd) 100 mg PO BID [facility] Last Admin: 12/24/20 09:03 Dose: 100 mg Documented by: Enoxaparin Sodium (Enoxaparin 40 Mg/0.4 Ml Inj) 40 mg SUB-Q QDAY@2200 [facility] Last Admin: 12/23/20 21:24 Dose: 40 mg Documented by: Famotidine (Famotidine 20 Mg Tab) 20 mg PO BID [facility] Last Admin: 12/24/20 09:03 Dose: 20 mg Documented by: Furosemide (Furosemide 40 Mg/4 Ml Inj) 40 mg IV ONCE [facility] Stop: 12/24/20 17:00 Last Admin: 12/24/20 13:58 Dose: 40 mg Documented by: Hydrophilic Ointment (Lip Therapy Vaseline) 1 applic TP Q2HR PRN PRN Reason: Dry Lips Last Admin: 11/30/20 21:33 Dose: 1 applic Documented by: Midazolam HCl 100 mg/ Sodium (Chloride) 100 mls @ 2 mls/hr IV TITR RAEANN; Protocol Last Admin: 12/24/20 12:56 Dose: 5 mg/hr, 5 mls/hr Documented by: Norepinephrine (Levophed Drip 4 Mg/Ns 250 Ml) 4 mg in 250 mls @ 7.5 mls/hr IV TITR RAEANN; Protocol Last Admin: 12/23/20 17:52 Dose: 9 mcg/min, 33.75 mls/hr Documented by: Propofol (Diprivan 10 Mg/Ml) 1,000 mg in 100 mls @ 2.175 mls/hr IV TITR RAEANN; Protocol Last Admin: 12/24/20 12:56 Dose: 15 mcg/kg/min, 6.525 mls/hr Documented by: Dexmedetomidine HCl 400 mcg/ (Sodium Chloride) 104 mls @ 4.441 mls/hr IV TITRATE RAEANN; Protocol Last Admin: 12/24/20 09:02 Dose: 0.7 mcg/kg/hr, 15.543 mls/hr Documented by: Fentanyl Citrate (Fentanyl Drip Premix) 2,000 mcg in 100 mls @ 3.9 mls/hr IV TITR RAEANN; Protocol Last Admin: 12/24/20 09:11 Dose: 4 mcg/kg/hr, 15.6 mls/hr Documented by: Ampicillin Sodium (Ampicillin/Ns 2 Gm/100 Ml) 2 gm in 100 mls @ 100 mls/hr IV Q6H RAEANN; Protocol Stop: 01/04/21 20:59 Last Admin: 12/24/20 14:07 Dose: 100 mls/hr Documented by: Insulin Glargine (Insulin Glargine 100 Units/Ml) 8 units SUB-Q QHS RAEANN Last Admin: 12/23/20 21:25 Dose: 8 units Documented by: Insulin Human Lispro (Insulin Lispro 100 Unit/Ml) 0 unit SUB-Q Q6HR RAEANN; Protocol Last Admin: 12/24/20 12:55 Dose: 3 unit Documented by: Metoclopramide HCl (Metoclopramide 10 Mg/2 Ml Inj) 10 mg IV Q6H PRN PRN Reason: Nausea And Vomiting Multi-Ingred Cream/Lotion/Oil/Oint (Mineral Oil/Petrolatum, White Ophth Oint 3.5 Gm) 1 applic OU Q4HR PRN PRN Reason: Dry Eye(s) Ondansetron HCl (Ondansetron 4 Mg/2 Ml Inj) 4 mg IV Q8H PRN PRN Reason: Nausea And Vomiting Polyethylene Glycol (Polyethylene Glycol 3350 17 Gm Powder) 17 gm PO QDAY [facility] Last Admin: 12/24/20 09:03 Dose: 17 gm Documented by: Senna/Docusate Sodium (Sennosides/Docusate Sodium 8.6/50 Mg Tab) 2 tab PO Q8HR [facility] Last Admin: 12/24/20 14:08 Dose: 2 tab Documented by: Simple Syrup (Simple Syrup 15 Ml) 15 ml FEEDTUBE PRN PRN PRN Reason: Hypoglycemia Simple Syrup (Simple Syrup 15 Ml) 30 ml FEEDTUBE PRN PRN PRN Reason: Hypoglycemia Sodium Bicarbonate (Sodium Bicarbonate 325 Mg Tab) 325 mg FEEDTUBE PRN PRN PRN Reason: For Clogged Feeding Tube Last Admin: 12/05/20 23:46 Dose: 325 mg Documented by: Sodium Chloride (Sodium Chloride 0.9% 10 Ml Flush Syringe) 10 ml IV BID [facility] Last Admin: 12/24/20 10:55 Dose: 10 ml Documented by: Sodium Chloride (Sodium Chloride 0.9% 10 Ml Flush Syringe) 10 ml IV PRN PRN PRN Reason: LINE FLUSH Last Admin: 12/03/20 00:21 Dose: 10 ml Documented by: Review of Systems ROS unobtainable: due to endotracheal tube Exam Vital Signs Temp Pulse Resp BP Pulse Ox 101.0 F H 116 H 46 H 145/90 99 11/15/20 10:30 11/15/20 10:30 11/15/20 10:30 11/15/20 10:30 11/15/20 10:30 - General physical appearance Positive: well developed, well nourished, no distress - Eyes Positive: PERRL, normal occular movement - ENT Positive: normal pinna, normal nares, normal mucosa, no hearing loss, no congestion - Neck Positive: no masses, no bruits, trachea midline, no venous distension - Respiratory Positive: normal expansion, normal respiratory effort, other (Decreased BS on the right. Prior right chest tube noted.) - Cardiovascular Rhythm: regular Heart Sounds: Present: S1 & S2. Absent: rub, click - Extremities Extremities: no ischemia, pulses symmetrical, No edema - Breasts Breasts: normal, no mass, no skin changes - Abdomen Abdomen: Present: soft, bowel sounds normal. Absent: tender, distended Hernia: none - Genitourinary Male Genitourinary: normal Female Genitourinary: normal - Integumentary no rash, no growths, no abnormal pigmentation - Musculoskeletal normal gait, normal posture - Psychiatric Psychiatric: other (Intubated. Sedated.) Results - Labs 12/20/20 04:00 12/23/20 06:07 Abnormal lab results 12/23/20 12/23/20 12/24/20 Range/Units 18:10 23:21 04:49 POC ABG pCO2 75.5 H (32.0-48.0) mmHg POC ABG pO2 50.5 L (83-108) mmHg ABG Hemoglobin 8.8 L (12.0-17.5) ABG Oxyhemoglobin 86.3 L (94-98) ABG Sodium 131.6 L (136.0-145.0) mmol/L ABG Chloride 88.0 L (98-107) mmol/L ABG Glucose 186 H (65-95) mg/dL Carboxyhemoglobin 2.1 H (0.5-1.5) POC Glucose 178 H 126 H (70-105) mg/dL Triglycerides (2-149) mg/dL Arterial Blood Glucose 186 H (65-95) mg/dL Arterial Blood Ionized Calcium 4.0 L (4.6-5.3) mg/dL 12/24/20 12/24/20 12/24/20 Range/Units 05:00 05:19 11:57 POC ABG pCO2 (32.0-48.0) mmHg POC ABG pO2 (83-108) mmHg ABG Hemoglobin (12.0-17.5) ABG Oxyhemoglobin (94-98) ABG Sodium (136.0-145.0) mmol/L ABG Chloride (98-107) mmol/L ABG Glucose (65-95) mg/dL Carboxyhemoglobin (0.5-1.5) POC Glucose 162 H 163 H (70-105) mg/dL Triglycerides 486 H (2-149) mg/dL Arterial Blood Glucose (65-95) mg/dL Arterial Blood Ionized Calcium (4.6-5.3) mg/dL Diabetes panel 12/24/20 Range/Units 05:00 Triglycerides 486 H (2-149) mg/dL - Imaging Chest x-ray: image reviewed Assessment and Plan - Patient Problems (1) Pneumothorax Current Visit: Yes Status: Acute Plan to address problem: 1) Emergent right thoracentesis performed without improvement in hypoxia. 2) Will place a 2nd right superior chest tube.
--- NOTE | 2020-12-24 16:16 | Procedure Note ---
Date of procedure: 12/24/20 Pre-op diagnosis: Right pneumothorax Post-op diagnosis: same Procedure: Emergency right thoracentesis and right tube thoracostomies X 2 Description of procedure: Pt was supine on his ICU bed in extremis with O2 sats in the mid-50's. After Betadine prep of his right chest, I inserted a 16 gauge IV into his right pleural space at the anterior axillary line above the level of the nipple. I did not perceive the expected flow of air and the pt's O2 sats failed to improve. I then made a transverse 3 cm incision at the same site and quickly inserted a small bore chest tube into the apex of the right chest. F/u CXR revealed no improvement in the apical and basilar PTX. I therefore re- examined the tube placement and found that the tube had been pulled out significantly, probably during his positioning for the CXR. I re-inserted the apical CT to about 14 cm and secured it with a single suture of 2-0 silk. I also removed the lower, previously placed CT and found the CT completely occluded with blood clot. I therefore replaced this CT with a new small bore CT and directed this CT towards the base of the right lung. This was also secured with a single suture of 2-0 silk. Vaseline gauze was placed about both CT exit sites and dry 4 X 4's placed over the chest tubes. The 4 X 4's were secured with an occlusive silk tape dressing. The chest tube to pleur-evac joints were spirally taped for security and the chest tubes also secured to the chest wall with additional silk tape. Pt's O2 sats were in the mid-80 by the end of the procedure. The final CXR revealed good position of the chest tubes and resolution of the apical and basilar pneumothorax. Anesthesia: none Surgeon: JANNA PAREDES Estimated blood loss: 50-100ml Pathology: none Condition: critical Disposition: ICU
--- NOTE | 2020-12-24 16:30 | Progress Note ---
<GAMALIELLISSETHRigo - Last Filed: 12/24/20 16:27> Assessment and Plan Assessment and plan: -Antibiotic deescalated to ampicillin as blood cultures grew Enterococcus in 1/4 bottles and the other set grew coag negative staph which will be continued for 14 days per ID -Repeat blood cultures with no growth -If the patient is febrile again we will await culture his blood and urine -Right chest tube clot removal and replacement -12/24 superior right chest tube placed -Wean mechanical ventilation for SPO2 greater than 88% and PaO2 greater than 55 mmHg on ABG -Wean mechanical ventilation as tolerated, VAP bundle, CXR/ABG -Bilateral chest tubes to wall suction -Trend BMP, CBC -SSI, long-acting insulin DVT/GI prophylaxis: SCDs to bilateral lower limbs while in bed, Lovenox subcu, PPI Disposition: ICU The high probability of a clinically significant, sudden or life threatening deterioration of the [multi] system(s) required my full and direct attention, intervention and personal management. The aggregate critical care time was [60] minutes. This time is in addition to time spent performing reported procedures but includes the following: [x] Data Review and interpretation [x] Patient assessment and monitoring of vital signs [x] Documentation [x] Medication orders and management History Interval history: 59-year-old female who is smoker who presented to [facility] with shortness of breath cough fever weakness for 1 to 2 days prior to arrival. Per EMS the p atient was severely hypoxic with saturations in the low 80s. With all oxygen and nonrebreather came down to low 90s. ID, pulmonary, CCM were consulted. Septic Shock Coag Negative staph/Entrococcus bactermia MRSA/Klebsiella in sputum COVID-19 pneumonia Acute hypoxic hypercapnic respiratory failure Bilateral pneumothorax Pneumomediastinum with subcutaneous emphysema Elevated D-dimer Transaminitis secondary to Covid 19 Klebsiella pneumonia Type 2 diabetes mellitus Severe protien calorie malnutrition secondary to critical illness Hyponatremia Hypochloremia Metabolic alkalosis Hypercapnia Hypoxemia 2/: Patient continues on BiPAP throughout the night. Labs are remarkable for hypoxia with improving renal function but lactic acidosis without fever. CTA has been ordered to rule out pulmonary embolism. I agree with increasing enoxaparin to twice daily full dose for empiric treatment of pulmonary embolism. Will obtain ID consultation on further evaluation for possible underlying pneumonia versus COVID-19. We will also obtain echocardiogram for evaluation. Will discontinue fluids at this time. 2/2; Continue supportive care, Patient remains with very guarded prognosis, remains on BiPAP, continues on Remdesivir, and steroids. Will continue anticoagulation, unable to get CTA Chest due to patients unstable clinical status. Will adjust insulin for better blood glucose 2/3: Continues on BIPAP, no clear improvement at this time. Will continue steroids therapy Remdesivir and also Full anticoagulation at this time. Will update family. Discussed with All Source Collection Manager. 2: Taking a break from the BiPAP on high flow and nonrebreather 100% with saturation of 90% becomes hypoxic with any movement. All Source Collection Manager input noted will get a dose of Lasix today. Will await a discussion with ID for possibly increasing steroid. I updated Patient's Cousin, Tayla Esquivel who is the emergency supply person. Blood sugar remains fluctuating secondary to steriods, Encouraged Prone positioning. Noted with mild hyponatremia we will continue to monitor and manage 2/5: Continue supportive care wean oxygen as tolerated prognosis remains guarded. Encouraged to progress as tolerated. Awaiting labs today. Discussed with nursing staff and patient at bedside. 2: Discontinued Dexamethasone as Solumedrol started secondary to increased oxygen demand. Will give additional insulin for better control. Continue oxygen support patient still on high flow. Prognosis still guarded 11/22: Patient was intubated and placed on mechanical ventilation. Continue current medication. Will check a.m. labs today. Noted still with hypotension. Doubt septic shock at this time as patient has no new fever. Will adjust insulin for better blood sugar control. 11/23: Patient admitted with COVID-19 despite all efforts patient remains severely hypoxic and now is intubated. All Source Collection Manager input noted. Blood pressure marginal at this time. Very poor prognosis. Continue Solu-Medrol. 11/24. Patient remains very hypoxic. Blood pressure borderline. Plan for initiation of paralytic agents as per aircraft assembler. Patient may need to be metz sferred if no improvement. 11/26. Off paralytics. Remains intubated. On steroids. Prognosis is poor. 11/27. Chest xray shows pneumomediastinum and subcutaneous emphysema. Surgery consulted. Plan for chest tube placement. Sputum culture grew MRSA. Patient started on vancomycin per ID. 11/28. Right chest tube placed yesterday by surgery. Repeat chest x-ray showed left small pneumothorax. Plan for chest tube placement on the left today. Remains on paralytic agents. 11/29. Remains intubated on vent. Had left chest tube placed yesterday. Vitals reviewed. Critical care following 11/30/ Remains on mechanical ventilation. Worsening hypoxia. Bilateral chest tubes in place. Vitals reviewed. Labs reviewed 12/01: Chest tube and mechanical ventilation remains in place, poor prognosis, FIO2 remains at 90%, adjust insulin for better blood glucose control 12/02: Patient remains on full ventilatory support and steroids, still with worsening leukocytosis ?inflammatory or infectious vs steroids. Continue vancomycin. 12/03; slowly weaning, 12/04: Still on the vent FiO2 down to 65% PEEP remains at 18. Still with poor prognosis. 12/05: Patient continues on full ventilatory support per aircraft assembler PEEP remains at 18. Still with hypercapnic respiratory failure. FiO2 down to 60% this morn ing. Chest tube to suction still weaning off steroids in the deliberation ongoing for possible a third chest tube as last documentation by surgery shows no plan for it at this time. Continue to manage insulin for better blood sugar control. 12/06:weaned down to 60%, continue supportive care, unable to wean, 12/07; patient remains intubated on ventilatory support, chest tubes in place trach and PEG when patient's Covid test is negative,Per surgery. 12/08; Patient remains intubated remains with hypercapnia and hypoxia. Chest tube still remain in place. He is off antibiotics at this time. Continue steroids which is likely resultant to the leukocytosis. All Source Collection Manager and surgeon following ID input is noted. Prognosis remains guarded to poor 12/10; patient remains intubated on vent, unable to wean awaiting trach and PEG when Covid test is negative, Continue current management 12/11; patient awaiting trach and PEG when Covid test is negative, vent dependent, poor prognosis 12/12; clinically no change, vent dependent, Patient is critically ill with very poor prognosis, awaiting trach and PEG when COVID-19 test turns negative. Plan discussed with nursing staff. Caregivers have discussed with patient's family periodically 12/13: Patient is critically ill with very poor prognosis, awaiting trach and PEG when COVID-19 test turns negative. Plan discussed with nursing staff. Ca regivers have discussed with patient's family periodically 12/14: Increase UOP which we will monitor and replete as needed. Patient remain hypoxemic on ABG despite 100 FiO2, remains on fentanyl, precedex, versed and levo gtt. 12/15: Patient remains sedated on fentanyl at 3 mcg, Versed at 30 mg, dexa methasone 0.3 and was on Levophed 6 mcg this morning. Patient's vent settings rate of 30, tidal volume 425, PEEP of 18, FiO2 of 85. RT attempted to wean as tolerated. No acute events reported overnight. Bilateral chest tubes to wall suction. 12/16: Overnight the patient was noted to be bradycardic, Precedex drip was increased to 0.6/fentanyl to 4 mcg/Versed 5 mg, bilateral chest tube to suction. Current vent settings for 425/30/18/0.75, RT to wean as tolerated 12/17: Patient's T-max overnight was 101.2, obtain CXR today, blood culture x2 per ID. Patient remains on fentanyl, Versed, Precedex and Levophed. Current vent settings AC 425/30/18/0.75, RT to wean as tolerated. Continue steroid taper. 12/18: Patient remains sedated on fentanyl, Versed, Precedex and has vasopressor support of Levophed, current vent settings 425/30/18/0.75 with bilateral chest tubes to wall suction. Patient's blood culture from 12/17 grew gram-positive cocci in pairs and chains however the patient is on vancomycin and cefepime. We will continue to follow for speciation and sensitivity. 12/19: Unfortunately remains on full ventilatory support prognosis remains very poor. No new fever however since 12/17. Continue to follow cultures not finalized yet. Antibiotics per ID critical care management input noted. Patient remains on high FiO2 and PEEP at this time. 12/20: Still with intermittent fever, likely secondary to covid 19, still with hyponatremia, continue with tube feed. cultures with coagulas negative staph, await further ID input. Continues on abx. 12/21: Patient remains on fentanyl, Precedex, Versed and Levophed and assist control for 25//18/.100 with bilateral chest tubes in place. Patient remains on antibiotic therapy. No acute events reported overnight. 12/22: Patient remains sedated on Precedex and fentanyl and on vasopressor support, blood cultures grew coag negative Staphylococcus and Enterococcus and antibiotic therapy was deescalated to ampicillin by infectious disease. This morning patient was on assist control for 25/30/18/0.100 and respiratory therapy to decrease FiO2 as tolerated. 12/23: Patient remains sedated on Versed, fentanyl, propofol, dexamethasone and vasopressor support with Levophed. Patient is on ampicillin with a T-max of 99 and current vent settings assist-control 425/30/18/0.90 which is being weaned as tolerated by RT. Patient bowel regimen escalated. 12/24: Patient was febrile overnight to 102, remains sedated on Versed, fentanyl, propofol and Precedex and on respiratory support with Levophed. This morning at the time my examination patient was on assist control 425/30/18/0.100. Patient's bowel regimen was escalated. This afternoon patient SPO2 dropped into the upper 60s and low 70s, patient was removed off the ventilator and bagged by RT with improvement in his SPO2 to mid 70s and his ventilator settings were adjusted with an increase in PEEP to 22 and reduction in tidal volume. Patient remained with SPO2 in the 70s to 80s then suddenly dropped his SPO2 again. A CXR was obtained and patient received 40 mg of IV Lasix. CXR showed pneumothorax and general surgery was consulted for chest tube placement. Patient's existing right chest tube was replaced after removal. During chest tube was placed on the right side and a repeat CXR is being performed. Dr. German and Dr. Nicole were kept up to date throughout the process and Dr. Nicole was at beside during this time. I attempted to call Kehinde but was unable to contact him but left a voicemail. Jd was called and informed of changes with translation provided by Tayla. I spoke to them on the phone for over 30 minutes and explained the situation. They did not wish to change his CODE STATUS. Per CCM the patient respikes his temperature over the next 24 hours we will reculture his urine and blood. Patient remains on antibiotic therapy for 14 days per infectious disease 01/04/2021. Repeat blood cultures are negative. Hospitalist Physical - Constitutional Vitals: Temp Pulse Resp BP Pulse Ox 97.9 F 91 H 30 H 109/59 93 12/24/20 12:00 12/24/20 15:23 12/24/20 13:00 12/24/20 15:23 12/24/20 15:23 General appearance: Present: mild distress, well-nourished, other (Vent dependent) - EENT ENT: clear oral mucosa - Neck Neck: Present: normal ROM - Respiratory Respiratory effort: normal Respiratory: bilateral: diminished - Cardiovascular Rhythm: regular Heart Sounds: Present: S1 & S2. Absent: systolic murmur, diastolic murmur - Extremities Extremities: no ischemia, pulses intact, pulses symmetrical, No edema, normal temperature, normal color Peripheral Pulses: within normal limits - Abdominal General gastrointestinal: soft, non-tender, non-distended, normal bowel sounds - Integumentary Integumentary: Present: dry - Psychiatric Psychiatric: other (sedated) - Neurologic Neurologic: other (sedated) - Allied Health Allied health notes reviewed: nursing HEART Score - HEART Score Troponin: Troponin T < 0.010 ng/mL (0.00-0.029) 12/11/20 06:30 Results - Labs CBC & Chem 7: 12/20/20 04:00 12/23/20 06:07 Labs: Laboratory Last Values WBC 9.4 K/mm3 (4.5-11.0) 12/20/20 04:00 RBC 3.21 M/mm3 (3.65-5.03) L 12/20/20 04:00 Hgb 9.6 gm/dl (11.8-15.2) L 12/20/20 04:00 Hct 29.2 % (35.5-45.6) L 12/20/20 04:00 MCV 91 fl (84-94) 12/20/20 04:00 MCH 30 pg (28-32) 12/20/20 04:00 MCHC 33 % (32-34) 12/20/20 04:00 RDW 15.8 % (13.2-15.2) H 12/20/20 04:00 Plt Count 309 K/mm3 (140-440) 12/20/20 04:00 Lymph % (Auto) 2.0 % (13.4-35.0) L 11/27/20 06:25 [place] % (Auto) 5.2 % (0.0-7.3) 11/27/20 06:25 Eos % (Auto) 0.0 % (0.0-4.3) 11/27/20 06:25 Baso % (Auto) 0.1 % (0.0-1.8) 11/27/20 06:25 Lymph # (Auto) 0.3 K/mm3 (1.2-5.4) L 11/27/20 06:25 [place] # (Auto) 0.7 K/mm3 (0.0-0.8) 11/27/20 06:25 Eos # (Auto) 0.0 K/mm3 (0.0-0.4) 11/27/20 06:25 Baso # (Auto) 0.0 K/mm3 (0.0-0.1) 11/27/20 06:25 Add Manual Diff Complete 12/14/20 04:35 Total Counted 100 12/14/20 04:35 Seg Neutrophils % Timing Adjuster 12/14/20 04:35 Seg Neuts % (Manual) 93.0 % (40.0-70.0) H 12/14/20 04:35 Band Neutrophils % 2.0 % 12/13/20 11:30 Lymphocytes % (Manual) 3.0 % (13.4-35.0) L 12/14/20 04:35 Monocytes % (Manual) 4.0 % (0.0-7.3) 12/14/20 04:35 Nucleated RBC % Not Reportable 12/14/20 04:35 Seg Neutrophils # 12.7 K/mm3 (1.8-7.7) H 11/27/20 06:25 Seg Neutrophils # Man 7.8 K/mm3 (1.8-7.7) H 12/14/20 04:35 Band Neutrophils # 0.0 K/mm3 12/14/20 04:35 Lymphocytes # (Manual) 0.3 K/mm3 (1.2-5.4) L 12/14/20 04:35 Abs React Lymphs (Man) 0.0 K/mm3 12/14/20 04:35 Monocytes # (Manual) 0.3 K/mm3 (0.0-0.8) 12/14/20 04:35 Eosinophils # (Manual) 0.0 K/mm3 (0.0-0.4) 12/14/20 04:35 Basophils # (Manual) 0.0 K/mm3 (0.0-0.1) 12/14/20 04:35 Metamyelocytes # 0.0 K/mm3 12/14/20 04:35 Myelocytes # 0.0 K/mm3 12/14/20 04:35 Promyelocytes # 0.0 K/mm3 12/14/20 04:35 Blast Cells # 0.0 K/mm3 12/14/20 04:35 WBC Morphology Not Reportable 12/14/20 04:35 Hypersegmented Neuts Not Reportable 12/14/20 04:35 Hyposegmented Neuts Not Reportable 12/14/20 04:35 Hypogranular Neuts Not Reportable 12/14/20 04:35 Smudge Cells Not Reportable 12/14/20 04:35 Toxic Granulation Not Reportable 12/14/20 04:35 Toxic Vacuolation Not Reportable 12/14/20 04:35 Dohle Bodies Not Reportable 12/14/20 04:35 Pelger-Huet Anomaly Not Reportable 12/14/20 04:35 Tony Rods Not Reportable 12/14/20 04:35 Platelet Estimate Consistent w auto 12/14/20 04:35 Clumped Platelets Not Reportable 12/14/20 04:35 Plt Clumps, EDTA Not Reportable 12/14/20 04:35 Large Platelets Not Reportable 12/14/20 04:35 Giant Platelets Not Reportable 12/14/20 04:35 Platelet Satelliting Not Reportable 12/14/20 04:35 Plt Morphology Comment Not Reportable 12/14/20 04:35 RBC Morphology Not Reportable 12/14/20 04:35 Dimorphic RBCs Not Reportable 12/14/20 04:35 Polychromasia Not Reportable 12/14/20 04:35 Hypochromasia Few 12/14/20 04:35 Poikilocytosis Not Reportable 12/14/20 04:35 Anisocytosis Few 12/14/20 04:35 Microcytosis Not Reportable 12/14/20 04:35 Macrocytosis Not Reportable 12/14/20 04:35 Spherocytes Not Reportable 12/14/20 04:35 Pappenheimer Bodies Not Reportable 12/14/20 04:35 Sickle Cells Not Reportable 12/14/20 04:35 Target Cells Not Reportable 12/14/20 04:35 Tear Drop Cells Not Reportable 12/14/20 04:35 Ovalocytes Not Reportable 12/14/20 04:35 Stomatocytes 1+ 12/03/20 04:35 Helmet Cells Not Reportable 12/14/20 04:35 [place] Bodies Not Reportable 12/14/20 04:35 [place] Rings Not Reportable 12/14/20 04:35 Henrry Cells Not Reportable 12/14/20 04:35 Bite Cells Not Reportable 12/14/20 04:35 Crenated Cell Not Reportable 12/14/20 04:35 Elliptocytes Not Reportable 12/14/20 04:35 Acanthocytes (Spur) Not Reportable 12/14/20 04:35 Rouleaux Not Reportable 12/14/20 04:35 Hemoglobin C Crystals Not Reportable 12/14/20 04:35 Schistocytes Not Reportable 12/14/20 04:35 Malaria parasites Not Reportable 12/14/20 04:35 Yovani Bodies Not Reportable 12/14/20 04:35 Hem Pathologist Commnt No 12/14/20 04:35 D-Dimer 926.11 ng/mlDDU (0-234) H 11/26/20 06:04 ABG pH 7.414 (7.320-7.450) 12/24/20 04:49 POC ABG pCO2 75.5 mmHg (32.0-48.0) H 12/24/20 04:49 ABG pCO2 81.3 mm Hg 12/08/20 04:12 POC ABG pO2 50.5 mmHg (83-108) L 12/24/20 04:49 ABG pO2 69.7 mm Hg (80.0-90.0) L 12/08/20 04:12 POC ABG HCO3 47.2 12/24/20 04:49 ABG HCO3 50.1 mmol/L (20.0-26.0) H 12/08/20 04:12 ABG O2 Saturation 88.4 (0-100) 12/24/20 04:49 ABG O2 Content 13.0 (0.0-44) 12/07/20 05:20 POC ABG Base Excess 19.9 12/24/20 04:49 ABG Base Excess 21.6 mmol/L (-2.0-3.0) H 12/08/20 04:12 ABG Hemoglobin 8.8 (12.0-17.5) L 12/24/20 04:49 ABG Oxyhemoglobin 86.3 (94-98) L 12/24/20 04:49 ABG Carboxyhemoglobin 2.0 % (0.0-5.0) 12/08/20 04:12 ABG Methemoglobin 0.3 (0.0-1.5) 12/24/20 04:49 ABG Sodium 131.6 mmol/L (136.0-145.0) L 12/24/20 04:49 ABG Potassium 3.8 mmol/L (3.40-4.50) 12/24/20 04:49 ABG Chloride 88.0 mmol/L (98-107) L 12/24/20 04:49 ABG Glucose 186 mg/dL (65-95) H 12/24/20 04:49 Oxyhemoglobin 93.2 % (95.0-99.0) L 12/08/20 04:12 Carboxyhemoglobin 2.1 (0.5-1.5) H 12/24/20 04:49 FiO2 90 12/23/20 05:19 FiO2 % 100 12/24/20 04:49 Sodium 135 mmol/L (137-145) L 12/23/20 06:07 Potassium 4.1 mmol/L (3.6-5.0) 12/23/20 06:07 Chloride 89.3 mmol/L (98-107) L 12/23/20 06:07 Carbon Dioxide 43 mmol/L (22-30) H* 12/23/20 06:07 Anion Gap 7 mmol/L 12/23/20 06:07 BUN 11 mg/dL (9-20) 12/23/20 06:07 Creatinine 0.2 mg/dL (0.8-1.3) L 12/23/20 06:07 Estimated GFR > 60 ml/min 12/23/20 06:07 BUN/Creatinine Ratio 55 % 12/23/20 06:07 Glucose 193 mg/dL (75-100) H 12/23/20 06:07 POC Glucose 163 mg/dL (70-105) H 12/24/20 11:57 Hemoglobin A1c 11.7 % (4-6) H 11/16/20 05:29 Lactic Acid 2.60 mmol/L (0.7-2.0) H* 11/16/20 05:29 Calcium 7.4 mg/dL (8.4-10.2) L 12/23/20 06:07 Phosphorus 2.60 mg/dL (2.5-4.5) 12/17/20 17:25 Magnesium 1.60 mg/dL (1.7-2.3) L 12/17/20 17:25 Ferritin 778.8 ng/mL (30.0-300.0) H 11/26/20 04:00 Total Bilirubin 0.40 mg/dL (0.1-1.2) 12/17/20 17:25 AST 29 units/L (5-40) 12/17/20 17:25 ALT 47 units/L (7-56) 12/17/20 17:25 Alkaline Phosphatase 119 units/L (35-129) 12/17/20 17:25 Lactate Dehydrogenase 288 units/L (91-180) H 11/26/20 04:00 Total Creatine Kinase 47 units/L (55-170) L 12/17/20 17:25 CK-MB (CK-2) 1.8 ng/mL (0.0-4.0) 12/17/20 17:25 CK-MB (CK-2) Rel Index 3.8 (0-4) 12/17/20 17:25 Troponin T < 0.010 ng/mL (0.00-0.029) 12/11/20 06:30 C-Reactive Protein 1.40 mg/dL (0.00-1.30) H 11/26/20 04:00 NT-Pro-B Natriuret Pep 107.2 pg/mL (0-900) 11/17/20 10:21 Total Protein 6.2 g/dL (6.3-8.2) L 12/17/20 17:25 Albumin 2.1 g/dL (3.9-5) L 12/17/20 17:25 Albumin/Globulin Ratio 0.5 % 12/17/20 17:25 Triglycerides 486 mg/dL (2-149) H 12/24/20 05:00 Procalcitonin 0.16 ng/mL (<0.15) 12/12/20 05:16 Arterial Blood Glucose 186 mg/dL (65-95) H 12/24/20 04:49 Arterial Blood Ionized Calcium 4.0 mg/dL (4.6-5.3) L 12/24/20 04:49 Urine Color Yellow (Yellow) 12/21/20 Unknown Urine Turbidity Cloudy (Clear) 12/21/20 Unknown Urine pH 6.0 (5.0-7.0) 12/21/20 Unknown Ur Specific [place] 1.013 (1.003-1.030) 12/21/20 Unknown Urine Protein <15 mg/dl mg/dL (Negative) 12/21/20 Unknown Urine Glucose (UA) Neg mg/dL (Negative) 12/21/20 Unknown Urine Ketones Neg mg/dL (Negative) 12/21/20 Unknown Urine Blood Neg (Negative) 12/21/20 Unknown Urine Nitrite Neg (Negative) 12/21/20 Unknown Urine Bilirubin Neg (Negative) 12/21/20 Unknown Urine Urobilinogen < 2.0 mg/dL (<2.0) 12/21/20 Unknown Ur Leukocyte Esterase Mod (Negative) 12/21/20 Unknown Urine WBC (Auto) 172.0 /HPF (0.0-6.0) H 12/21/20 Unknown Urine RBC (Auto) > 182.0 /HPF (0.0-6.0) 12/21/20 Unknown U Epithel Cells (Auto) 3.0 /HPF (0-13.0) 12/21/20 Unknown Urine Bacteria (Auto) 2+ /HPF (Negative) 12/21/20 Unknown Ur Renal Epithelial Cell <1 /LPF 12/21/20 Unknown Urine Mucus 2+ /HPF 12/21/20 Unknown Urine Yeast (Budding) 3+ /HPF 12/21/20 Unknown Vancomycin Trough 16.9 ug/mL (5.0-20.0) 12/19/20 15:46 Coronavirus (PCR) Positive (Negative) A 12/13/20 10:00 Hepatitis A IgM Ab Non-reactive (NonReactive) 12/17/20 21:40 Hep Bs Antigen Non-reactive (Negative) 12/17/20 21:40 Hep B Core IgM Ab Non-reactive (NonReactive) 12/17/20 21:40 Hepatitis C Antibody Non-reactive (NonReactive) 12/17/20 21:40 HIV 1&2 Antibody Rapid Non react (Non React) 12/17/20 21:40 HIV P24 Antigen Non react (Non React) 12/17/20 21:40 Microbiology: Microbiology 12/21/20 16:44 Peripheral/Venous Blood Culture - Preliminary NO GROWTH AFTER 48 HOURS 12/21/20 16:44 Peripheral/Venous Blood Culture - Preliminary NO GROWTH AFTER 48 HOURS - Diagnostic Impressions Diagnostic Impressions: Echocardiogram 11/16/20 10:34 Transthoracic Echocardiogram Indication: Shortness of breath-COVID BP: 108/77 HR: 92 Conclusions *Global left ventricular systolic function is normal. *The estimated ejection fraction is 60-65%. *Mild to moderate concentric left ventricular hypertrophy is observed. *There is trace of mitral regurgitation. *There is mild to moderate tricuspid regurgitation. *There is evidence of mild pulmonary hypertension. *The right ventricular systolic pressure is calculated at 31 mmHg. Findings Left Ventricle: The left ventricular chamber size is normal. Mild to moderate concentric left ventricular hypertrophy is observed. Global left ventricular systolic function is normal. The estimated ejection fraction is 60-65%. Left Atrium: The left atrial chamber size is normal. Right Ventricle: The right ventricular cavity size is normal. The right ventricular global systolic function is normal. Right Atrium: The right atrial cavity size is normal. Aortic Valve: The aortic valve is trileaflet. There is no evidence of aortic regurgitation. There is no evidence of aortic stenosis. Mitral Valve: The mitral valve leaflets appear normal. There is trace of mitral regurgitation. There is no evidence of mitral stenosis. Tricuspid Valve: The tricuspid valve leaflets are normal. There is mild to moderate tricuspid regurgitation. The right ventricular systolic pressure is calculated at 31 mmHg. There is evidence of mild pulmonary hypertension. Pulmonic Valve: There is trace pulmonic regurgitation. Pericardium: There is no pericardial effusion. Aorta: There is no dilatation of the ascending aorta. There is no dilatation of the aortic root. Venous: The inferior vena cava appears normal in size. Measurements Chambers 2D Name Value Normal Range IVSd (2D) 0.81 cm (0.6 - 1.1) LVPWd (2D) 0.79 cm (0.6 - 1.1) LVIDd (2D) 4.22 cm (3.7 - 5.6) LVIDs (2D) 3.1 cm (2 - 3.8) LV FS (2D) 26.71 % - EF Teichholz (2D) 52.55 % - Ao root diameter (2D) 3.34 cm (2 - 3.7) Volumes/Mass Name Value Normal Range LA ESV SP 4CH (A/L) 10.87 ml - LA ESV SP 2CH (A/L) 18.74 ml - LA ESV BP (A/L) 16.38 ml - LA ESV BP (A/L) index 8.62 ml/m2 - LA ESV SP 4CH (MOD) 10.32 ml - LA ESV SP 2CH (MOD) 17.66 ml - LA ESV BP (MOD) 15.12 ml - LA ESV BP (MOD) index 7.96 ml/m2 - Diastolic/Systolic Function Name Value Normal Range MV E-wave Vmax 0.76 m/sec - MV deceleration time 133.63 msec - MV A-wave Vmax 1.1 m/sec - MV E:A ratio 0.69 ratio - Aortic Valve Name Value Normal Range AV Vmax 1.44 m/sec - AV VTI 22.94 cm - AV peak gradient 8.33 mmHg - AV mean gradient 4.73 mmHg - LVOT diameter 2.2 cm - LVOT Vmax 1.04 m/sec - LVOT VTI 18.88 cm - LVOT peak gradient 4.34 mmHg - LVOT mean gradient 2.31 mmHg - SV LVOT 72.05 ml - EVANGELISTA (continuity Vmax) 2.75 cm2 - EVANGELISTA (continuity VTI) 3.14 cm2 - Tricuspid Valve Name Value Normal Range TR Vmax 2.64 m/sec - TR peak gradient 28 mmHg - RAP 3 mmHg - RVSP 31 mmHg - Gupta/IV: Voiding Method Indwelling Catheter IV Catheter Type [Left Peripheral IV Antec[employer]ital] Active Medications - Current Medications Current Medications: Generic Name Dose Route Start Last Admin Trade Name Freq PRN Reason Stop Dose Admin Acetaminophen 650 mg 11/15/20 23:55 12/24/20 14:06 Acetaminophen 325 Mg Tab PO 650 mg Q4H PRN Administration Pain MILD(1-3)/Fever >100.5/BUTTS Lipase/Protease/Amylase 1 each 11/23/20 11:53 12/05/20 23:45 Lipase 10,500/Protease 25,000/Amylase 43,750 (Units) Dr Cap FEEDTUBE 1 each PRN PRN Administration For Clogged Feeding Tube Dextrose 25 ml 12/10/20 05:21 12/10/20 05:24 Dextrose 50% In Water (25gm) 50 Ml Syringe IV 25 ml Q30MIN PRN Administration Hypoglycemia Protocol Docusate Sodium 100 mg 12/23/20 10:00 12/24/20 09:03 Docusate Sodium 100 Mg/10 Ml Oral Liqd PO 100 mg BID RAEANN Administration Enoxaparin Sodium 40 mg 12/03/20 22:00 12/23/20 21:24 Enoxaparin 40 Mg/0.4 Ml Inj SUB-Q 40 mg QDAY@2200 RAEANN Administration Famotidine 20 mg 12/16/20 10:00 12/24/20 09:03 Famotidine 20 Mg Tab PO 20 mg BID RAEANN Administration Furosemide 40 mg 12/24/20 14:00 12/24/20 13:58 Furosemide 40 Mg/4 Ml Inj IV 12/24/20 17:00 40 mg ONCE RAEANN Administration Hydrophilic Ointment 1 applic 11/21/20 21:53 11/30/20 21:33 Lip Therapy Vaseline TP 1 applic Q2HR PRN Administration Dry Lips Midazolam HCl 100 mg/ Sodium 100 mls @ 2 mls/hr 11/21/20 22:00 12/24/20 12:56 Chloride IV 5 mg/hr TITR RAEANN 5 mls/hr Administration Protocol 2 MG/HR Norepinephrine 4 mg in 250 mls @ 7.5 mls/hr 11/22/20 17:00 12/23/20 17:52 Levophed Drip 4 Mg/Ns 250 Ml IV 9 mcg/min TITR RAEANN 33.75 mls/hr Administration Protocol 2 MCG/MIN Propofol 1,000 mg in 100 mls @ 2.175 mls/hr 11/27/20 12:00 12/24/20 12:56 Diprivan 10 Mg/Ml IV 15 mcg/kg/min TITR RAEANN 6.525 mls/hr Administration Protocol 5 MCG/KG/MIN Dexmedetomidine HCl 400 mcg/ 104 mls @ 4.441 mls/hr 12/10/20 13:00 12/24/20 09:02 Sodium Chloride IV 0.7 mcg/kg/hr TITRATE RAEANN 15.543 mls/hr Administration Protocol 0.2 MCG/KG/HR Fentanyl Citrate 2,000 mcg in 100 mls @ 3.9 mls/hr 12/18/20 19:00 12/24/20 09:11 Fentanyl Drip Premix IV 4 mcg/kg/hr TITR RAEANN 15.6 mls/hr Administration Protocol 1 MCG/KG/HR Ampicillin Sodium 2 gm in 100 mls @ 100 mls/hr 12/22/20 14:00 12/24/20 16:19 Ampicillin/Ns 2 Gm/100 Ml IV 01/04/21 20:59 Not Given Q6H [facility] Protocol Insulin Glargine 8 units 12/17/20 13:52 12/23/20 21:25 Insulin Glargine 100 Units/Ml SUB-Q 8 units QHS [facility] Administration Insulin Human Lispro 0 unit 11/22/20 06:00 12/24/20 12:55 Insulin Lispro 100 Unit/Ml SUB-Q 3 unit Q6HR RAEANN Administration Protocol Metoclopramide HCl 10 mg 11/15/20 23:55 Metoclopramide 10 Mg/2 Ml Inj IV Q6H PRN Nausea And Vomiting Multi-Ingred Cream/Lotion/Oil/Oint 1 applic 11/21/20 21:53 Mineral Oil/Petrolatum, White Ophth Oint 3.5 Gm OU Q4HR PRN Dry Eye(s) Ondansetron HCl 4 mg 11/15/20 23:55 Ondansetron 4 Mg/2 Ml Inj IV Q8H PRN Nausea And Vomiting Polyethylene Glycol 17 gm 12/23/20 10:00 12/24/20 09:03 Polyethylene Glycol 3350 17 Gm Powder PO 17 gm QDAY [facility] Administration Senna/Docusate Sodium 2 tab 12/21/20 14:00 12/24/20 14:08 Sennosides/Docusate Sodium 8.6/50 Mg Tab PO 2 tab Q8HR RAEANN Administration Simple Syrup 15 ml 11/23/20 11:53 Simple Syrup 15 Ml FEEDTUBE PRN PRN Hypoglycemia Simple Syrup 30 ml 11/23/20 11:53 Simple Syrup 15 Ml FEEDTUBE PRN PRN Hypoglycemia Sodium Bicarbonate 325 mg 11/23/20 11:53 12/05/20 23:46 Sodium Bicarbonate 325 Mg Tab FEEDTUBE 325 mg PRN PRN Administration For Clogged Feeding Tube Sodium Chloride 10 ml 11/16/20 10:00 12/24/20 10:55 Sodium Chloride 0.9% 10 Ml Flush Syringe IV 10 ml BID RAEANN Administration Sodium Chloride 10 ml 11/15/20 23:55 12/03/20 00:21 Sodium Chloride 0.9% 10 Ml Flush Syringe IV 10 ml PRN PRN Administration LINE FLUSH Nutrition/Malnutrition Assess - Dietary Evaluation Nutrition/Malnutrition Findings: Nutrition Notes Start: 11/20/20 12:03 Freq: Status: Active Protocol: Document 12/21/20 12:15 (Rec: 12/21/20 12:25 [email or web address]) Nutrition Notes Initial or Follow up Reassessment Current Diagnosis Diabetes,Sepsis,Respiratory Failure Other Pertinent Diagnosis Bilat pneu, COVID-19 (+) Current Diet Glucerna 1.2 at 60 ml/hr Labs/Tests Na 132 BG 207 Pertinent Medications Propofol Levophed Prednisone Senokot S Height 5 ft 6 in Weight 81.3 kg [place] Body Weight (kg) 64.54 BMI 28.9 Weight Status Overweight Subjective/Other Information FU for TF tolerance. Pt tolerating TF at goal. MD to increase Percent of energy/protein needs met: 100%/100% Burn Absent Trauma Absent GI Symptoms Last BM Difficulty In Swallowing,Chewing Current % PO Negligible Minimum of two criteria Yes Energy Intake (severe) < or equal to 50% Estimated Energy Requirement > or equal to 5 days Interpretation of Weight Loss (severe) >2% in 1 week Fluid Accumulation Moderate to Severe (severe) #3 Nutrition Diagnosis Inadequate oral intake Diagnosis Progress(for reassessment Continues documentation) #2 Nutrition Diagnosis Malnutrition Diagnosis Progress(for reassessment Continues documentation) #1 Nutrition Diagnosis Unintended weight loss Diagnosis Progress(for reassessment Continues documentation) Is patient on ventilator? Yes Is Patient Ambulatory and/or Out of Bed No REE-([facility]-confined to bed) 1895.496 Kcal/Kg value to use for calculation 22 Approximate Energy Requirements Using 1789 kcal/Kg Calculation Used for Recommendations [facility] Additional Notes Protein: 87-145 g/day (1.2-2g/ kg) Fluid: 1ml/kcal or per MD Nutrition Intervention Change Diet Order: Continue TF Nutrition Support: Glucerna 1.2 at 65 ml/hr. Flush 125 ml q4h Kcal 1,872 Protein (gm) 93 Fluid (mL) 1,255 Goal #1 Meet at least 75% of energy and protein needs via TF Goal #2 TF tolerance Anticipated Discharge Needs: Unable to determine at this time Follow-Up By: 12/25/20 Additional Comments FU for TF tolerance, BM <YUNIER NICOLE - Last Filed: 12/25/20 12:30> Assessment and Plan Assessment and plan: I agree with history, examination and assessment and plan as written by Lisseth Murillo [employer]. Patient developed severe hypoxia with sats in the low 60s. He was Ambu bagged for several minutes with no improvement. Stat chest x-ray right-sided pneumothoraces. Surgery consulted and patient had chest tube placed by surgery. His sats improved. Continue to monitor. Patient's family would like him to be full code for now. Critical Care Statement The high probability of a clinically significant, sudden or life threatening deterioration of the [multi] system(s) required my full and direct attention, intervention and personal management. The aggregate critical care time was [35] minutes. This time is in addition to time spent performing reported procedures but includes the following: [x] Data Review and interpretation [x] Patient assessment and monitoring of vital signs [x] Documentation [x] Medication orders and management Hospitalist Physical - Constitutional Vitals: Temp Pulse Resp BP Pulse Ox 101.5 F H 117 H 30 H 142/82 91 12/25/20 07:32 12/25/20 11:15 12/25/20 11:15 12/25/20 11:15 12/25/20 11:15 HEART Score - HEART Score Troponin: Troponin T < 0.010 ng/mL (0.00-0.029) 12/11/20 06:30 Results - Labs CBC & Chem 7: 12/25/20 11:17 12/25/20 11:17 Labs: Laboratory Last Values WBC 19.6 K/mm3 (4.5-11.0) H 12/25/20 11:17 RBC 2.82 M/mm3 (3.65-5.03) L 12/25/20 11:17 Hgb 8.1 gm/dl (11.8-15.2) L 12/25/20 11:17 Hct 25.2 % (35.5-45.6) L 12/25/20 11:17 MCV 89 fl (84-94) 12/25/20 11:17 MCH 29 pg (28-32) 12/25/20 11:17 MCHC 32 % (32-34) 12/25/20 11:17 RDW 16.2 % (13.2-15.2) H 12/25/20 11:17 Plt Count 413 K/mm3 (140-440) 12/25/20 11:17 Lymph % (Auto) 2.0 % (13.4-35.0) L 11/27/20 06:25 [place] % (Auto) 5.2 % (0.0-7.3) 11/27/20 06:25 Eos % (Auto) 0.0 % (0.0-4.3) 11/27/20 06:25 Baso % (Auto) 0.1 % (0.0-1.8) 11/27/20 06:25 Lymph # (Auto) 0.3 K/mm3 (1.2-5.4) L 11/27/20 06:25 [place] # (Auto) 0.7 K/mm3 (0.0-0.8) 11/27/20 06:25 Eos # (Auto) 0.0 K/mm3 (0.0-0.4) 11/27/20 06:25 Baso # (Auto) 0.0 K/mm3 (0.0-0.1) 11/27/20 06:25 Add Manual Diff Complete 12/24/20 18:57 Total Counted 100 12/24/20 18:57 Seg Neutrophils % Timing Adjuster 12/24/20 18:57 Seg Neuts % (Manual) 92.0 % (40.0-70.0) H 12/24/20 18:57 Band Neutrophils % 2.0 % 12/13/20 11:30 Lymphocytes % (Manual) 5.0 % (13.4-35.0) L 12/24/20 18:57 Monocytes % (Manual) 3.0 % (0.0-7.3) 12/24/20 18:57 Nucleated RBC % Not Reportable 12/24/20 18:57 Seg Neutrophils # 12.7 K/mm3 (1.8-7.7) H 11/27/20 06:25 Seg Neutrophils # Man 17.6 K/mm3 (1.8-7.7) H 12/24/20 18:57 Band Neutrophils # 0.0 K/mm3 12/24/20 18:57 Lymphocytes # (Manual) 1.0 K/mm3 (1.2-5.4) L 12/24/20 18:57 Abs React Lymphs (Man) 0.0 K/mm3 12/24/20 18:57 Monocytes # (Manual) 0.6 K/mm3 (0.0-0.8) 12/24/20 18:57 Eosinophils # (Manual) 0.0 K/mm3 (0.0-0.4) 12/24/20 18:57 Basophils # (Manual) 0.0 K/mm3 (0.0-0.1) 12/24/20 18:57 Metamyelocytes # 0.0 K/mm3 12/24/20 18:57 Myelocytes # 0.0 K/mm3 12/24/20 18:57 Promyelocytes # 0.0 K/mm3 12/24/20 18:57 Blast Cells # 0.0 K/mm3 12/24/20 18:57 WBC Morphology Not Reportable 12/24/20 18:57 Hypersegmented Neuts Not Reportable 12/24/20 18:57 Hyposegmented Neuts Not Reportable 12/24/20 18:57 Hypogranular Neuts Not Reportable 12/24/20 18:57 Smudge Cells Not Reportable 12/24/20 18:57 Toxic Granulation Not Reportable 12/24/20 18:57 Toxic Vacuolation Not Reportable 12/24/20 18:57 Dohle Bodies Not Reportable 12/24/20 18:57 Pelger-Huet Anomaly Not Reportable 12/24/20 18:57 Tony Rods Not Reportable 12/24/20 18:57 Platelet Estimate Not Reportable 12/24/20 18:57 Clumped Platelets Not Reportable 12/24/20 18:57 Plt Clumps, EDTA Not Reportable 12/24/20 18:57 Large Platelets Not Reportable 12/24/20 18:57 Giant Platelets Not Reportable 12/24/20 18:57 Platelet Satelliting Not Reportable 12/24/20 18:57 Plt Morphology Comment Not Reportable 12/24/20 18:57 RBC Morphology Not Reportable 12/24/20 18:57 Dimorphic RBCs Not Reportable 12/24/20 18:57 Polychromasia Not Reportable 12/24/20 18:57 Hypochromasia Not Reportable 12/24/20 18:57 Poikilocytosis Not Reportable 12/24/20 18:57 Anisocytosis Rare 12/24/20 18:57 Microcytosis Not Reportable 12/24/20 18:57 Macrocytosis Not Reportable 12/24/20 18:57 Spherocytes Not Reportable 12/24/20 18:57 Pappenheimer Bodies Not Reportable 12/24/20 18:57 Sickle Cells Not Reportable 12/24/20 18:57 Target Cells Not Reportable 12/24/20 18:57 Tear Drop Cells Not Reportable 12/24/20 18:57 Ovalocytes Not Reportable 12/24/20 18:57 Stomatocytes 1+ 12/03/20 04:35 Helmet Cells Not Reportable 12/24/20 18:57 [place] Bodies Not Reportable 12/24/20 18:57 [place] Rings Not Reportable 12/24/20 18:57 [place] Cells Not Reportable 12/24/20 18:57 Bite Cells Not Reportable 12/24/20 18:57 Crenated Cell Not Reportable 12/24/20 18:57 Elliptocytes Not Reportable 12/24/20 18:57 Acanthocytes (Spur) Not Reportable 12/24/20 18:57 Rouleaux Not Reportable 12/24/20 18:57 Hemoglobin C Crystals Not Reportable 12/24/20 18:57 Schistocytes Not Reportable 12/24/20 18:57 Malaria parasites Not Reportable 12/24/20 18:57 Yovani Bodies Not Reportable 12/24/20 18:57 Hem Pathologist Commnt No 12/24/20 18:57 D-Dimer 926.11 ng/mlDDU (0-234) H 11/26/20 06:04 ABG pH 7.372 (7.320-7.450) 12/25/20 04:04 POC ABG pCO2 75.6 mmHg (32.0-48.0) H 12/25/20 04:04 ABG pCO2 81.3 mm Hg 12/08/20 04:12 POC ABG pO2 43.3 mmHg (83-108) L 12/25/20 04:04 ABG pO2 69.7 mm Hg (80.0-90.0) L 12/08/20 04:12 POC ABG HCO3 42.9 12/25/20 04:04 ABG HCO3 50.1 mmol/L (20.0-26.0) H 12/08/20 04:12 ABG O2 Saturation 79.8 (0-100) 12/25/20 04:04 ABG O2 Content 13.0 (0.0-44) 12/07/20 05:20 POC ABG Base Excess 14.9 12/25/20 04:04 ABG Base Excess 21.6 mmol/L (-2.0-3.0) H 12/08/20 04:12 ABG Hemoglobin 10.6 (12.0-17.5) L 12/25/20 04:04 ABG Oxyhemoglobin 77.6 (94-98) L 12/25/20 04:04 ABG Carboxyhemoglobin 2.0 % (0.0-5.0) 12/08/20 04:12 ABG Methemoglobin 0.3 (0.0-1.5) 12/25/20 04:04 ABG Sodium 131.4 mmol/L (136.0-145.0) L 12/25/20 04:04 ABG Potassium 4.2 mmol/L (3.40-4.50) 12/25/20 04:04 ABG Chloride 90.0 mmol/L (98-107) L 12/25/20 04:04 ABG Glucose 185 mg/dL (65-95) H 12/25/20 04:04 Oxyhemoglobin 93.2 % (95.0-99.0) L 12/08/20 04:12 Carboxyhemoglobin 2.4 (0.5-1.5) H 12/25/20 04:04 FiO2 90 12/23/20 05:19 FiO2 % 100 12/25/20 04:04 Sodium 136 mmol/L (137-145) L 12/25/20 11:17 Potassium 4.2 mmol/L (3.6-5.0) 12/25/20 11:17 Chloride 92.3 mmol/L (98-107) L 12/25/20 11:17 Carbon Dioxide 43 mmol/L (22-30) H* 12/23/20 06:07 Anion Gap 4 mmol/L 12/25/20 11:17 BUN 17 mg/dL (9-20) 12/25/20 11:17 Creatinine 0.2 mg/dL (0.8-1.3) L 12/23/20 06:07 Estimated GFR > 60 ml/min 12/23/20 06:07 BUN/Creatinine Ratio 55 % 12/23/20 06:07 Glucose 240 mg/dL (75-100) H 12/25/20 11:17 POC Glucose 210 mg/dL (70-105) H 12/25/20 12:07 Hemoglobin A1c 11.7 % (4-6) H 11/16/20 05:29 Lactic Acid 2.60 mmol/L (0.7-2.0) H* 11/16/20 05:29 Calcium 7.3 mg/dL (8.4-10.2) L 12/25/20 11:17 Phosphorus 2.60 mg/dL (2.5-4.5) 12/17/20 17:25 Magnesium 1.60 mg/dL (1.7-2.3) L 12/17/20 17:25 Ferritin 778.8 ng/mL (30.0-300.0) H 11/26/20 04:00 Total Bilirubin 0.40 mg/dL (0.1-1.2) 12/17/20 17:25 AST 29 units/L (5-40) 12/17/20 17:25 ALT 47 units/L (7-56) 12/17/20 17:25 Alkaline Phosphatase 119 units/L (35-129) 12/17/20 17:25 Lactate Dehydrogenase 288 units/L (91-180) H 11/26/20 04:00 Total Creatine Kinase 47 units/L (55-170) L 12/17/20 17:25 CK-MB (CK-2) 1.8 ng/mL (0.0-4.0) 12/17/20 17:25 CK-MB (CK-2) Rel Index 3.8 (0-4) 12/17/20 17:25 Troponin T < 0.010 ng/mL (0.00-0.029) 12/11/20 06:30 C-Reactive Protein 1.40 mg/dL (0.00-1.30) H 11/26/20 04:00 NT-Pro-B Natriuret Pep 107.2 pg/mL (0-900) 11/17/20 10:21 Total Protein 6.2 g/dL (6.3-8.2) L 12/17/20 17:25 Albumin 2.1 g/dL (3.9-5) L 12/17/20 17:25 Albumin/Globulin Ratio 0.5 % 12/17/20 17:25 Triglycerides 328 mg/dL (2-149) H 12/25/20 11:17 Procalcitonin 0.16 ng/mL (<0.15) 12/12/20 05:16 Arterial Blood Glucose 185 mg/dL (65-95) H 12/25/20 04:04 Arterial Blood Ionized Calcium 4.1 mg/dL (4.6-5.3) L 12/25/20 04:04 Urine Color Yellow (Yellow) 12/21/20 Unknown Urine Turbidity Cloudy (Clear) 12/21/20 Unknown Urine pH 6.0 (5.0-7.0) 12/21/20 Unknown Ur Specific [place] 1.013 (1.003-1.030) 12/21/20 Unknown Urine Protein <15 mg/dl mg/dL (Negative) 12/21/20 Unknown Urine Glucose (UA) Neg mg/dL (Negative) 12/21/20 Unknown Urine Ketones Neg mg/dL (Negative) 12/21/20 Unknown Urine Blood Neg (Negative) 12/21/20 Unknown Urine Nitrite Neg (Negative) 12/21/20 Unknown Urine Bilirubin Neg (Negative) 12/21/20 Unknown Urine Urobilinogen < 2.0 mg/dL (<2.0) 12/21/20 Unknown Ur Leukocyte Esterase Mod (Negative) 12/21/20 Unknown Urine WBC (Auto) 172.0 /HPF (0.0-6.0) H 12/21/20 Unknown Urine RBC (Auto) > 182.0 /HPF (0.0-6.0) 12/21/20 Unknown U Epithel Cells (Auto) 3.0 /HPF (0-13.0) 12/21/20 Unknown Urine Bacteria (Auto) 2+ /HPF (Negative) 12/21/20 Unknown Ur Renal Epithelial Cell <1 /LPF 12/21/20 Unknown Urine Mucus 2+ /HPF 12/21/20 Unknown Urine Yeast (Budding) 3+ /HPF 12/21/20 Unknown Vancomycin Trough 16.9 ug/mL (5.0-20.0) 12/19/20 15:46 Coronavirus (PCR) Positive (Negative) A 12/13/20 10:00 Hepatitis A IgM Ab Non-reactive (NonReactive) 12/17/20 21:40 Hep Bs Antigen Non-reactive (Negative) 12/17/20 21:40 Hep B Core IgM Ab Non-reactive (NonReactive) 12/17/20 21:40 Hepatitis C Antibody Non-reactive (NonReactive) 12/17/20 21:40 HIV 1&2 Antibody Rapid Non react (Non React) 12/17/20 21:40 HIV P24 Antigen Non react (Non React) 12/17/20 21:40 Microbiology: Microbiology 12/21/20 16:44 Peripheral/Venous Blood Culture - Preliminary NO GROWTH AFTER 72 HOURS 12/21/20 16:44 Peripheral/Venous Blood Culture - Preliminary NO GROWTH AFTER 72 HOURS - Diagnostic Impressions Diagnostic Impressions: Echocardiogram 11/16/20 10:34 Transthoracic Echocardiogram Indication: Shortness of breath-COVID BP: 108/77 HR: 92 Conclusions *Global left ventricular systolic function is normal. *The estimated ejection fraction is 60-65%. *Mild to moderate concentric left ventricular hypertrophy is observed. *There is trace of mitral regurgitation. *There is mild to moderate tricuspid regurgitation. *There is evidence of mild pulmonary hypertension. *The right ventricular systolic pressure is calculated at 31 mmHg. Findings Left Ventricle: The left ventricular chamber size is normal. Mild to moderate concentric left ventricular hypertrophy is observed. Global left ventricular systolic function is normal. The estimated ejection fraction is 60-65%. Left Atrium: The left atrial chamber size is normal. Right Ventricle: The right ventricular cavity size is normal. The right ventricular global systolic function is normal. Right Atrium: The right atrial cavity size is normal. Aortic Valve: The aortic valve is trileaflet. There is no evidence of aortic regurgitation. There is no evidence of aortic stenosis. Mitral Valve: The mitral valve leaflets appear normal. There is trace of mitral regurgitation. There is no evidence of mitral stenosis. Tricuspid Valve: The tricuspid valve leaflets are normal. There is mild to moderate tricuspid regurgitation. The right ventricular systolic pressure is calculated at 31 mmHg. There is evidence of mild pulmonary hypertension. Pulmonic Valve: There is trace pulmonic regurgitation. Pericardium: There is no pericardial effusion. Aorta: There is no dilatation of the ascending aorta. There is no dilatation of the aortic root. Venous: The inferior vena cava appears normal in size. Measurements Chambers 2D Name Value Normal Range IVSd (2D) 0.81 cm (0.6 - 1.1) LVPWd (2D) 0.79 cm (0.6 - 1.1) LVIDd (2D) 4.22 cm (3.7 - 5.6) LVIDs (2D) 3.1 cm (2 - 3.8) LV FS (2D) 26.71 % - EF Teichholz (2D) 52.55 % - Ao root diameter (2D) 3.34 cm (2 - 3.7) Volumes/Mass Name Value Normal Range LA ESV SP 4CH (A/L) 10.87 ml - LA ESV SP 2CH (A/L) 18.74 ml - LA ESV BP (A/L) 16.38 ml - LA ESV BP (A/L) index 8.62 ml/m2 - LA ESV SP 4CH (MOD) 10.32 ml - LA ESV SP 2CH (MOD) 17.66 ml - LA ESV BP (MOD) 15.12 ml - LA ESV BP (MOD) index 7.96 ml/m2 - Diastolic/Systolic Function Name Value Normal Range MV E-wave Vmax 0.76 m/sec - MV deceleration time 133.63 msec - MV A-wave Vmax 1.1 m/sec - MV E:A ratio 0.69 ratio - Aortic Valve Name Value Normal Range AV Vmax 1.44 m/sec - AV VTI 22.94 cm - AV peak gradient 8.33 mmHg - AV mean gradient 4.73 mmHg - LVOT diameter 2.2 cm - LVOT Vmax 1.04 m/sec - LVOT VTI 18.88 cm - LVOT peak gradient 4.34 mmHg - LVOT mean gradient 2.31 mmHg - SV LVOT 72.05 ml - EVANGELISTA (continuity Vmax) 2.75 cm2 - EVANGELISTA (continuity VTI) 3.14 cm2 - Tricuspid Valve Name Value Normal Range TR Vmax 2.64 m/sec - TR peak gradient 28 mmHg - RAP 3 mmHg - RVSP 31 mmHg - Gupta/IV: Voiding Method Indwelling Catheter IV Catheter Type [Left Peripheral IV Antecubital] Active Medications - Current Medications Current Medications: Generic Name Dose Route Start Last Admin Trade Name Freq PRN Reason Stop Dose Admin Acetaminophen 650 mg 11/15/20 23:55 12/25/20 07:24 Acetaminophen 325 Mg Tab PO 650 mg Q4H PRN Administration Pain MILD(1-3)/Fever >100.5/BUTTS Lipase/Protease/Amylase 1 each 11/23/20 11:53 12/05/20 23:45 Lipase 10,500/Protease 25,000/Amylase 43,750 (Units) Dr Cap FEEDTUBE 1 each PRN PRN Administration For Clogged Feeding Tube Dextrose 25 ml 12/10/20 05:21 12/10/20 05:24 Dextrose 50% In Water (25gm) 50 Ml Syringe IV 25 ml Q30MIN PRN Administration Hypoglycemia Protocol Docusate Sodium 100 mg 12/23/20 10:00 12/24/20 23:25 Docusate Sodium 100 Mg/10 Ml Oral Liqd PO Not Given BID RAEANN Enoxaparin Sodium 40 mg 12/03/20 22:00 12/24/20 23:24 Enoxaparin 40 Mg/0.4 Ml Inj SUB-Q 40 mg QDAY@2200 RAEANN Administration Famotidine 20 mg 12/16/20 10:00 12/24/20 23:24 Famotidine 20 Mg Tab PO 20 mg BID RAEANN Administration Hydrophilic Ointment 1 applic 11/21/20 21:53 11/30/20 21:33 Lip Therapy Vaseline TP 1 applic Q2HR PRN Administration Dry Lips Midazolam HCl 100 mg/ Sodium 100 mls @ 2 mls/hr 11/21/20 22:00 12/25/20 02:12 Chloride IV 5 mg/hr TITR RAEANN 5 mls/hr Titration Protocol 2 MG/HR Norepinephrine 4 mg in 250 mls @ 7.5 mls/hr 11/22/20 17:00 12/25/20 07:57 Levophed Drip 4 Mg/Ns 250 Ml IV 22 mcg/min TITR RAEANN 82.5 mls/hr Administration Protocol 2 MCG/MIN Propofol 1,000 mg in 100 mls @ 2.175 mls/hr 11/27/20 12:00 12/25/20 02:33 Diprivan 10 Mg/Ml IV 20 mcg/kg/min TITR RAEANN 8.7 mls/hr Titration Protocol 5 MCG/KG/MIN Dexmedetomidine HCl 400 mcg/ 104 mls @ 4.441 mls/hr 12/10/20 13:00 12/25/20 07:24 Sodium Chloride IV 0.7 mcg/kg/hr TITRATE RAEANN 15.543 mls/hr Administration Protocol 0.2 MCG/KG/HR Fentanyl Citrate 2,000 mcg in 100 mls @ 3.9 mls/hr 12/18/20 19:00 12/25/20 07:56 Fentanyl Drip Premix IV 4 mcg/kg/hr TITR RAEANN 15.6 mls/hr Administration Protocol 1 MCG/KG/HR Vasopressin 20 unit/ Sodium 101 mls @ 9.09 mls/hr 12/24/20 18:30 Chloride IV TITR RAEANN Protocol 0.03 UNITS/MIN Piperacillin Sod/Tazobactam Sod 4.5 gm in 100 mls @ 200 mls/hr 12/25/20 12:00 Zosyn/Ns 4.5gm/100ml IV Q6H [facility] Protocol Insulin Glargine 8 units 12/17/20 13:52 12/24/20 23:24 Insulin Glargine 100 Units/Ml SUB-Q 8 units QHS [facility] Administration Insulin Human Lispro 0 unit 11/22/20 06:00 12/25/20 05:47 Insulin Lispro 100 Unit/Ml SUB-Q Not Given Q6HR [facility] Protocol Metoclopramide HCl 10 mg 11/15/20 23:55 Metoclopramide 10 Mg/2 Ml Inj IV Q6H PRN Nausea And Vomiting Multi-Ingred Cream/Lotion/Oil/Oint 1 applic 11/21/20 21:53 Mineral Oil/Petrolatum, White Ophth Oint 3.5 Gm OU Q4HR PRN Dry Eye(s) Ondansetron HCl 4 mg 11/15/20 23:55 Ondansetron 4 Mg/2 Ml Inj IV Q8H PRN Nausea And Vomiting Polyethylene Glycol 17 gm 12/23/20 10:00 12/24/20 09:03 Polyethylene Glycol 3350 17 Gm Powder PO 17 gm QDAY [facility] Administration Senna/Docusate Sodium 2 tab 12/21/20 14:00 12/25/20 05:48 Sennosides/Docusate Sodium 8.6/50 Mg Tab PO Not Given Q8HR RAEANN Simple Syrup 15 ml 11/23/20 11:53 Simple Syrup 15 Ml FEEDTUBE PRN PRN Hypoglycemia Simple Syrup 30 ml 11/23/20 11:53 Simple Syrup 15 Ml FEEDTUBE PRN PRN Hypoglycemia Sodium Bicarbonate 325 mg 11/23/20 11:53 12/05/20 23:46 Sodium Bicarbonate 325 Mg Tab FEEDTUBE 325 mg PRN PRN Administration For Clogged Feeding Tube Sodium Chloride 10 ml 11/16/20 10:00 12/24/20 23:25 Sodium Chloride 0.9% 10 Ml Flush Syringe IV Not Given BID RAEANN Sodium Chloride 10 ml 11/15/20 23:55 12/03/20 00:21 Sodium Chloride 0.9% 10 Ml Flush Syringe IV 10 ml PRN PRN Administration LINE FLUSH Nutrition/Malnutrition Assess - Dietary Evaluation Nutrition/Malnutrition Findings: Nutrition Notes Start: 11/20/20 12:03 Freq: Status: Active Protocol: Document 12/25/20 11:32 AL (Rec: 12/25/20 11:37 AL [id number]) Co-Sign 12/25/20 11:32 CW Nutrition Notes Initial or Follow up Reassessment Current Diagnosis Diabetes,Sepsis,Respiratory Failure Other Pertinent Diagnosis Bilat pneu, COVID-19 (+) Current Diet Glucerna 1.2 at 60 ml/hr Labs/Tests Reviewed Pertinent Medications Levophed in NS Propofol at 8.7 ml/hr (229 kcal) Lasix Height 5 ft 6 in Weight 83.9 kg Usual Body Weight 80.5 kg [place] Body Weight (kg) 64.54 BMI 29.8 Weight change and time frame Wt change 2.8 kg (3%) noted. Pt has edema. Weight Status Overweight Subjective/Other Information F/U for TF tolerance and last BM. Per RN, pt had last BM yesterday 12/24. Pt tolerates TF at 60 ml/hr (goal rate). Percent of energy/protein needs met: 100%/100% Burn Absent Trauma Absent GI Symptoms Last BM Difficulty In Swallowing,Chewing Current % PO Negligible Minimum of two criteria Yes Energy Intake (severe) < or equal to 50% Estimated Energy Requirement > or equal to 5 days Interpretation of Weight Loss (severe) >2% in 1 week Fluid Accumulation Moderate to Severe (severe) #3 Nutrition Diagnosis Inadequate oral intake Diagnosis Progress(for reassessment Continues documentation) #2 Nutrition Diagnosis Malnutrition Diagnosis Progress(for reassessment Continues documentation) #1 Nutrition Diagnosis Unintended weight loss Diagnosis Progress(for reassessment Continues documentation) Is patient on ventilator? Yes Is Patient Ambulatory and/or Out of Bed No REE-([facility]-confined to bed) 1920.756 Kcal/Kg value to use for calculation 22 Approximate Energy Requirements Using 1846 kcal/Kg Calculation Used for Recommendations [place] [facility] Protein: 87-145 g/day (1.2-2g/ kg) Fluid: 1ml/kcal or per MD Nutrition Intervention Change Diet Order: Continue TF Nutrition Support: Glucerna 1.2 at 65 ml/hr. Flush 125 ml q4h Kcal 1,872 Protein (gm) 93 Fluid (mL) 1,255 Goal #1 Meet at least 75% of energy and protein needs via TF Goal #2 TF tolerance Anticipated Discharge Needs: Unable to determine at this time Follow-Up By: 01/01/21 Additional Comments F/U for TF tolerance.
--- NOTE | 2020-12-24 17:02 | XRay Report ---
CHEST 1 VIEW 12/24/2020 3:52 PM INDICATION / CLINICAL INFORMATION: Chest tube placement. COMPARISON: 12/24/2020 FINDINGS: SUPPORT DEVICES: PICC line, endotracheal tube and nasogastric tube appear unchanged. There are 2 righ t-sided chest tubes. There is a single left chest tube HEART / MEDIASTINUM: Unchanged LUNGS / PLEURA: There has been interval resolution of the right pneumothorax. There is diffuse right lung opacity in the right lung more focal consolidation/atelectasis in the mid to lower lung zone. Di ffuse peripheral opacity in the left lung appears unchanged No pneumothorax. ADDITIONAL FINDINGS: There is large amount subcutaneous air in the right chest. IMPRESSION: 1. There are 2 right-sided chest tubes. Previously noted right chest tube is been repositioned or rep laced. There is resolution of right pneumothorax. 2. There is diffuse parenchymal opacity in the right lung with more focal consolidation/atelectasis i n the mid to lower lung zone. Signer Name: Anthony Alexander MD Signed: 12/24/2020 4:57 PM Workstation Name: [id number]
--- NOTE | 2020-12-24 17:09 | XRay Report ---
CHEST 1 VIEW 12/24/2020 4:02 PM INDICATION / CLINICAL INFORMATION: Chest tube placement. COMPARISON: 12/24/2020, 1507 hours FINDINGS: SUPPORT DEVICES: There are 2 right-sided chest tubes. The superior tube has been advanced a few centi meters. The endotracheal tube and nasogastric tube, PICC line and left chest tube appear unchanged HEART / MEDIASTINUM: Unchanged LUNGS / PLEURA: There is a relatively large right pneumothorax. There is dense consolidation in the m id right lung zone. No pneumothorax. ADDITIONAL FINDINGS: No significant additional findings. IMPRESSION: 1. There is a large right pneumothorax. 2 right-sided chest tubes are noted. The superior tube has be en advanced a few centimeters. Signer Name: Anthony Alexander MD Signed: 12/24/2020 5:05 PM Workstation Name: [id number]
[2020-12-24] MEDS: NORepinephrine/NS 4 MG-250 ML 4 MG/250 ML BAG IV SCH ×2 (17:25→23:24)
--- NOTE | 2020-12-24 17:31 | XRay Report ---
CHEST 1 VIEW 12/24/2020 4:03 PM INDICATION / CLINICAL INFORMATION: post chest tube palcement. COMPARISON: 12/24/2020 FINDINGS: SUPPORT DEVICES: Interval placement of additional large bore right-sided chest tube with its tip over the right upper hemithorax. Previously noted right lower lobe and left-sided large bore chest tubes are in stable position. ET tube, NG tube, and right upper surety PICC are all in stable position. HEART / MEDIASTINUM: Stable. LUNGS / PLEURA: Unchanged right-sided pneumothorax. Persistent atelectasis of the right lung field wi th opacification in the right upper lobe. ADDITIONAL FINDINGS: Worsened subcutaneous emphysema over the right hemithorax. IMPRESSION: 1. Unchanged right-sided pneumothorax status post placement of a second large bore right-sided chest tube with its tip projected over the right superior hemithorax. 2. Previously noted right lower lobe and left-sided large-bore chest tubes are in stable position. 3. Right upper lobe atelectasis with right midlung field consolidation, unchanged from prior. 4. Additional medical devices are in stable position. Signer Name: Daniel Almanzar MD Signed: 12/24/2020 5:27 PM Workstation Name: [id number]
[2020-12-24] MEDS ORDERED: VASOPRESSIN 20 UNIT in SODIUM CHLORIDE 0.9% 100 ML IV SCH (18:30)
[2020-12-24 20:40] LABS: Hemoglobin 8.3 gm/dl (11.8-15.2); Mean Corpuscular HGB Conc 32 % (32-34); Mean Corpuscular Volume 90 fl (84-94); Platelet Count 355 K/mm3 (140-440); Red Blood Count 2.91 M/mm3 (3.65-5.03)
--- NOTE | 2020-12-24 21:03 | XRay Report ---
CHEST 1 VIEW 12/24/2020 7:55 PM INDICATION / CLINICAL INFORMATION: Low O2 sats. COMPARISON: Earlier today at 4:17 PM. FINDINGS: SUPPORT DEVICES: The positions of the endotracheal tube, nasogastric tube and bilateral chest tubes h ave not changed. HEART / MEDIASTINUM: Unchanged. LUNGS / PLEURA: Diffuse bilateral parenchymal disease, right greater than left, has not changed. No p neumothorax. ADDITIONAL FINDINGS: Subcutaneous emphysema on the right is again identified but has improved. IMPRESSION: Improving subcutaneous emphysema on the right without other significant change. Signer Name: Eduardo Cary MD Signed: 12/24/2020 8:59 PM Workstation Name: [id number]
[2020-12-24 22:04] LABS: Anisocytosis RARE; Total Cells Counted 100
[2020-12-24] MEDS: ENOXAPARIN 40 MG/0.4 ML INJ SUB-Q SCH (23:24)
[2020-12-24] MEDS: INSULIN GLARGINE 100 UNITS/ML SUB-Q SCH (23:24)
[2020-12-25] MEDS: INSULIN LISPRO 100 UNIT/ML SUB-Q SCH ×4 (01:36→19:20)
[2020-12-25] MEDS: fentaNYL DRIP Premix 2,000 MCG/100 ML BAG IV SCH ×4 (02:11→21:38)
[2020-12-25] MEDS: AMPICILLIN/NS 2 GM/100 ML 2 GM/100 ML BAG IV SCH ×2 (03:30→07:24)
[2020-12-25] MEDS: NORepinephrine/NS 4 MG-250 ML 4 MG/250 ML BAG IV SCH ×3 (04:53→14:20)
[2020-12-25] MEDS: ACETAMINOPHEN 325 MG TAB PO PRN ×2 (04:56→07:24)
[2020-12-25] MEDS: SENNOSIDES/DOCUSATE SODIUM 8.6/50 MG TAB PO SCH ×3 (05:48→22:09)
[2020-12-25] MEDS: POLYETHYLENE GLYCOL 3350 17 GM POWDER PO SCH (10:16)
[2020-12-25] MEDS: DOCUSATE SODIUM 100 MG/10 ML ORAL LIQD PO SCH ×2 (10:16→22:09)
[2020-12-25] MEDS: FAMOTIDINE 20 MG TAB PO SCH ×2 (10:17→22:09)
[2020-12-25 11:24] LABS: Hematocrit 25.2 % (35.5-45.6); Hemoglobin 8.1 gm/dl (11.8-15.2); Mean Corpuscular HGB Conc 32 % (32-34); Mean Corpuscular Volume 89 fl (84-94); Platelet Count 413 K/mm3 (140-440); Red Blood Count 2.82 M/mm3 (3.65-5.03); Red Cell Distribution Width 16.2 % (13.2-15.2)
--- NOTE | 2020-12-25 11:26 | Progress Note ---
Assessment and Plan Cultures: SARS CoV-2 PCR: positive Blood culture: No growth 11/21/2020 tracheal aspirate culture: MRSA 12/09/2020 blood culture: no growth 12/09/2020 sputum culture: Klebsiella 12/17/2020 blood culture: 1 bottle with coag negative staph, second bottle with Enterococcus faecalis 12/17/2020 tracheal aspirate culture: Usual respiratory zachariah 12/21/2020 blood culture: No growth A/P: 59-year-old male with: #Shock: multifactorial. #GPC bacteremia: source unclear. Typically, Enterococcus is not considered a contaminant, however only present in 1 out of 4 bottles while another set is growing coag negative staph. #Bilateral pneumonia: secondary to COVID-19. Completed abx, remdesivir. #Klebsiella on ET aspirate culture: ?colonization v/s true disease, difficult to differentiate. Will treat given development of low-grade temperatures and white count. #B/L pneumothorax and pneumomediastinum: s/p chest tubes. #Acute hypoxic respiratory failure: Remains on the vent. #Elevated d-dimer: DVT scan negative. Was unable to get CTA Chest due to patients unstable clinical status #Transaminitis: secondary to COVID-19. Recs: -extremely poor prognosis, recommend DNR status, recent literature showing mortality of 100% in COVID-19 patients who required CPR -escalated abx to Zosyn given persistent fever, shock Dayday Driscoll MD, FACP [facility] ([facility] O: [phone] F: [phone] Subjective Date of service: 12/25/20 Principal diagnosis: COVID-19 Interval history: Remains critically ill. On pressors, on the vent with full support, needed thoracostomies. Febrile. Objective - Exam Narrative Exam: Physical Exam (reviewed in chart to minimize risk of transmission) Constitutional: deferred Head, Ears, Nose: deferred Eyes: deferred Neck: deferred Oral: deferred Cardiovascular: deferred Respiratory: deferred GI: deferred Musculoskeletal: deferred Skin: deferred Hem/Lymphatic: deferred Psych: deferred Neurological: deferred - Constitutional Vitals: Vital Signs Temp Pulse Resp BP Pulse Ox 101.5 F H 117 H 30 H 142/82 91 12/25/20 07:32 12/25/20 11:15 12/25/20 11:15 12/25/20 11:15 12/25/20 11:15 Temperature -Last 24 Hours Temperature 101.5 F Temperature 101.6 F Temperature 99.2 F Temperature 98.6 F Temperature 98.0 F Temperature 97.9 F - Labs CBC & Chem 7: 12/24/20 18:57 12/23/20 06:07 Labs: Abnormal lab results 12/24/20 12/24/20 12/24/20 Range/Units 11:57 16:44 17:28 WBC (4.5-11.0) K/mm3 RBC (3.65-5.03) M/mm3 Hgb (11.8-15.2) gm/dl Hct (35.5-45.6) % RDW (13.2-15.2) % Seg Neuts % (Manual) (40.0-70.0) % Lymphocytes % (Manual) (13.4-35.0) % Seg Neutrophils # Man (1.8-7.7) K/mm3 Lymphocytes # (Manual) (1.2-5.4) K/mm3 ABG pH 7.250 L (7.320-7.450) POC ABG pCO2 102.6 H (32.0-48.0) mmHg POC ABG pO2 42.4 L (83-108) mmHg ABG Hemoglobin 9.0 L (12.0-17.5) ABG Oxyhemoglobin 69.9 L (94-98) ABG Sodium 131.1 L (136.0-145.0) mmol/L ABG Chloride 89.0 L (98-107) mmol/L ABG Glucose 211 H (65-95) mg/dL Carboxyhemoglobin 1.7 H (0.5-1.5) POC Glucose 163 H 191 H (70-105) mg/dL Arterial Blood Glucose 211 H (65-95) mg/dL Arterial Blood Ionized Calcium 4.0 L (4.6-5.3) mg/dL 12/24/20 12/24/20 12/24/20 Range/Units 18:57 20:48 23:31 WBC 19.1 H (4.5-11.0) K/mm3 RBC 2.91 L (3.65-5.03) M/mm3 Hgb 8.3 L (11.8-15.2) gm/dl Hct 26.0 L (35.5-45.6) % RDW 16.0 H (13.2-15.2) % Seg Neuts % (Manual) 92.0 H (40.0-70.0) % Lymphocytes % (Manual) 5.0 L (13.4-35.0) % Seg Neutrophils # Man 17.6 H (1.8-7.7) K/mm3 Lymphocytes # (Manual) 1.0 L (1.2-5.4) K/mm3 ABG pH (7.320-7.450) POC ABG pCO2 82.1 H (32.0-48.0) mmHg POC ABG pO2 38.6 L (83-108) mmHg ABG Hemoglobin 9.3 L (12.0-17.5) ABG Oxyhemoglobin 70.8 L (94-98) ABG Sodium 130.7 L (136.0-145.0) mmol/L ABG Chloride 89.0 L (98-107) mmol/L ABG Glucose 226 H (65-95) mg/dL Carboxyhemoglobin 1.8 H (0.5-1.5) POC Glucose 181 H (70-105) mg/dL Arterial Blood Glucose 226 H (65-95) mg/dL Arterial Blood Ionized Calcium 4.1 L (4.6-5.3) mg/dL 12/25/20 12/25/20 Range/Units 04:04 06:31 WBC (4.5-11.0) K/mm3 RBC (3.65-5.03) M/mm3 Hgb (11.8-15.2) gm/dl Hct (35.5-45.6) % RDW (13.2-15.2) % Seg Neuts % (Manual) (40.0-70.0) % Lymphocytes % (Manual) (13.4-35.0) % Seg Neutrophils # Man (1.8-7.7) K/mm3 Lymphocytes # (Manual) (1.2-5.4) K/mm3 ABG pH (7.320-7.450) POC ABG pCO2 75.6 H (32.0-48.0) mmHg POC ABG pO2 43.3 L (83-108) mmHg ABG Hemoglobin 10.6 L (12.0-17.5) ABG Oxyhemoglobin 77.6 L (94-98) ABG Sodium 131.4 L (136.0-145.0) mmol/L ABG Chloride 90.0 L (98-107) mmol/L ABG Glucose 185 H (65-95) mg/dL Carboxyhemoglobin 2.4 H (0.5-1.5) POC Glucose 153 H (70-105) mg/dL Arterial Blood Glucose 185 H (65-95) mg/dL Arterial Blood Ionized Calcium 4.1 L (4.6-5.3) mg/dL
[2020-12-25 11:46] LABS: Blood Urea Nitrogen 17 mg/dL (9-20); Calcium 7.3 mg/dL (8.4-10.2); Hemolysis Index 4
--- NOTE | 2020-12-25 11:52 | XRay Report ---
CHEST 1 VIEW 12/25/2020 10:46 AM INDICATION / CLINICAL INFORMATION: Follow up imaging for pneumothorax. COMPARISON: December 24, 2020 FINDINGS: SUPPORT DEVICES: Right chest tube remains in position. Small right apical and right lateral pneumotho rax persists. There is gas in the right chest wall. Left chest tube is unchanged in position. HEART / MEDIASTINUM: No significant abnormality. LUNGS / PLEURA: Diffuse pulmonary opacities in bilateral lungs most significant in the right lower armand ng. ADDITIONAL FINDINGS: No significant additional findings. IMPRESSION: 1. Right chest wall remains in position. Small pneumothorax persists. 2. Diffuse opacities in bilateral lungs. Signer Name: Trevor Clinton MD Signed: 12/25/2020 11:48 AM Workstation Name: [id number]
[2020-12-25] MEDS: PIPERACIL/TAZOBACTA 4.5/NS 100 4.5 GM/100 ML VIAL IV SCH ×2 (12:30→19:19)
[2020-12-25 12:56] LABS: BUN/Creatinine Ratio 57
[2020-12-25] MEDS: MIDAZOLAM 100 MG in SODIUM CHLORIDE 0.9% 80 ML IV SCH (13:21)
--- NOTE | 2020-12-25 13:27 | XRay Report ---
CHEST 1 VIEW INDICATION / CLINICAL INFORMATION: Dyspnea. FINDINGS: SUPPORT DEVICES: The right apical chest tube is grossly unchanged in position. The right lower and le ft lower thoracostomy tubes are also unchanged. The endotracheal tube and esophagogastric tubes proje ct in expected position.. HEART / MEDIASTINUM: No significant change from earlier today.. LUNGS / PLEURA: Small right-sided pneumothorax persists. Severe bilateral airspace disease is not sig nificantly improved in the interim. Signer Name: Paras Theodore MD Signed: 12/25/2020 1:22 PM Workstation Name: [id number]
--- NOTE | 2020-12-25 15:11 | Progress Note ---
Assessment and Plan Assessment and plan: -Antibiotic therapy -12/24: right chest tube clot removal and replacement with superior right chest tube placed -Wean mechanical ventilation for SPO2 greater than 88% and PaO2 greater than 55 mmHg on ABG -Wean mechanical ventilation as tolerated, VAP bundle, CXR/ABG -All chest tubes to wall suction -Trend BMP, CBC -SSI, long-acting insulin -Continue supportive care DVT/GI prophylaxis: SCDs to bilateral lower extremities while in bed, Lovenox subcu, PPI Disposition: ICU The high probability of a clinically significant, sudden or life threatening deterioration of the [multi] system(s) required my full and direct attention, intervention and personal management. The aggregate critical care time was [60] minutes. This time is in addition to time spent performing reported procedures but includes the following: [x] Data Review and interpretation [x] Patient assessment and monitoring of vital signs [x] Documentation [x] Medication orders and management History Interval history: 59-year-old female who is smoker who presented to [facility] with shortness of breath cough fever weakness for 1 to 2 days prior to arrival. Per EMS the patient was severely hypoxic with saturations in the low 80s. With all oxygen and nonrebreather came down to low 90s. ID, pulmonary, CCM were consulted. Septic Shock Coag Negative staph/Entrococcus bactermia MRSA/Klebsiella in sputum COVID-19 pneumonia Acute hypoxic hypercapnic respiratory failure Bilateral pneumothorax Pneumomediastinum with subcutaneous emphysema Elevated D-dimer Transaminitis secondary to Covid 19 Klebsiella pneumonia Type 2 diabetes mellitus Severe protien calorie malnutrition secondary to critical illness Hyponatremia Hypochloremia Metabolic alkalosis Hypercapnia Hypoxemia 2/: Patient continues on BiPAP throughout the night. Labs are remarkable for hypoxia with improving renal function but lactic acidosis without fever. CTA has been ordered to rule out pulmonary embolism. I agree with increasing enoxaparin to twice daily full dose for empiric treatment of pulmonary embolism. Will obtain ID consultation on further evaluation for possible underlying pneumonia versus COVID-19. We will also obtain echocardiogram for evaluation. Will discontinue fluids at this time. 2/2; Continue supportive care, Patient remains with very guarded prognosis, remains on BiPAP, continues on Remdesivir, and steroids. Will continue anticoagulation, unable to get CTA Chest due to patients unstable clinical status. Will adjust insulin for better blood glucose 2/3: Continues on BIPAP, no clear improvement at this time. Will continue steroids therapy Remdesivir and also Full anticoagulation at this time. Will update family. Discussed with Surgical Coder. 11/19: Taking a break from the BiPAP on high flow and nonrebreather 100% with saturation of 90% becomes hypoxic with any movement. Surgical Coder input noted will get a dose of Lasix today. Will await a discussion with ID for possibly increasing steroid. I updated Patient's Cousin, Tayla Esquivel who is the emergency customer contact specialist. Blood sugar remains fluctuating secondary to steriods, Encouraged Prone positioning. Noted with mild hyponatremia we will continue to monitor and manage 11/20: Continue supportive care wean oxygen as tolerated prognosis remains guarded. Encouraged to progress as tolerated. Awaiting labs today. Discussed with nursing staff and patient at bedside. 11/21: Discontinued Dexamethasone as Solumedrol started secondary to increased oxygen demand. Will give additional insulin for better control. Continue oxygen support patient still on high flow. Prognosis still guarded 11/22: Patient was intubated and placed on mechanical ventilation. Continue current medication. Will check a.m. labs today. Noted still with hypotension. Doubt septic shock at this time as patient has no new fever. Will adjust insulin for better blood sugar control. 11/23: Patient admitted with COVID-19 despite all efforts patient remains severely hypoxic and now is intubated. Surgical Coder input noted. Blood pressure marginal at this time. Very poor prognosis. Continue Solu-Medrol. 11/24. Patient remains very hypoxic. Blood pressure borderline. Plan for initiation of paralytic agents as per book sorter. Patient may need to be transferred if no improvement. 11/26. Off paralytics. Remains intubated. On steroids. Prognosis is poor. 11/27. Chest xray shows pneumomediastinum and subcutaneous emphysema. Surgery consulted. Plan for chest tube placement. Sputum culture grew MRSA. Patient started on vancomycin per ID. 11/28. Right chest tube placed yesterday by surgery. Repeat chest x-ray showed left small pneumothorax. Plan for chest tube placement on the left today. Remains on paralytic agents. 11/29. Remains intubated on vent. Had left chest tube placed yesterday. Vitals reviewed. Critical care following 11/30/ Remains on mechanical ventilation. Worsening hypoxia. Bilateral chest tubes in place. Vitals reviewed. Labs reviewed 12/01: Chest tube and mechanical ventilation remains in place, poor prognosis, FIO2 remains at 90%, adjust insulin for better blood glucose control 12/02: Patient remains on full ventilatory support and steroids, still with worsening leukocytosis ?inflammatory or infectious vs steroids. Continue vancomycin. 12/03; slowly weaning, 12/04: Still on the vent FiO2 down to 65% PEEP remains at 18. Still with poor prognosis. 12/05: Patient continues on full ventilatory support per book sorter PEEP remains at 18. Still with hypercapnic respiratory failure. FiO2 down to 60% this morning. Chest tube to suction still weaning off steroids in the deliberation ongoing for possible a third chest tube as last documentation by surgery shows no plan for it at this time. Continue to manage insulin for better blood sugar control. 12/06:weaned down to 60%, continue supportive care, unable to wean, 12/07; patient remains intubated on ventilatory support, chest tubes in place trach and PEG when patient's Covid test is negative,Per surgery. 12/08; Patient remains intubated remains with hypercapnia and hypoxia. Chest tube still remain in place. He is off antibiotics at this time. Continue steroids which is likely resultant to the leukocytosis. Surgical Coder and surgeon following ID input is noted. Prognosis remains guarded to poor 12/10; patient remains intubated on vent, unable to wean awaiting trach and PEG when Covid test is negative, Continue current management 12/11; patient awaiting trach and PEG when Covid test is negative, vent dependent, poor prognosis 12/12; clinically no change, vent dependent, Patient is critically ill with very poor prognosis, awaiting trach and PEG when COVID-19 test turns negative. Plan discussed with nursing staff. Caregivers have discussed with patient's family periodically 12/13: Patient is critically ill with very poor prognosis, awaiting trach and PEG when COVID-19 test turns negative. Plan discussed with nursing staff. Caregivers have discussed with patient's family periodically 12/14: Increase UOP which we will monitor and replete as needed. Patient remain hypoxemic on ABG despite 100 FiO2, remains on fentanyl, precedex, versed and levo gtt. 12/15: Patient remains sedated on fentanyl at 3 mcg, Versed at 30 mg, dexamethasone 0.3 and was on Levophed 6 mcg this morning. Patient's vent settings rate of 30, tidal volume 425, PEEP of 18, FiO2 of 85. RT attempted to wean as tolerated. No acute events reported overnight. Bilateral chest tubes to wall suction. 12/16: Overnight the patient was noted to be bradycardic, Precedex drip was increased to 0.6/fentanyl to 4 mcg/Versed 5 mg, bilateral chest tube to suction. Current vent settings for 425/30/18/0.75, RT to wean as tolerated 12/17: Patient's T-max overnight was 101.2, obtain CXR today, blood culture x2 per ID. Patient remains on fentanyl, Versed, Precedex and Levophed. Current vent settings AC 425/30/18/0.75, RT to wean as tolerated. Continue steroid taper. 12/18: Patient remains sedated on fentanyl, Versed, Precedex and has vasopressor support of Levophed, current vent settings 425/30/18/0.75 with bilateral chest tubes to wall suction. Patient's blood culture from 12/17 grew gram-positive cocci in pairs and chains however the patient is on vancomycin and cefepime. We will continue to follow for speciation and sensitivity. 12/19: Unfortunately remains on full ventilatory support prognosis remains very poor. No new fever however since 12/17. Continue to follow cultures not finalized yet. Antibiotics per ID critical care management input noted. Vanesa thurman remains on high FiO2 and PEEP at this time. 12/20: Still with intermittent fever, likely secondary to covid 19, still with hyponatremia, continue with tube feed. cultures with coagulas negative staph, await further ID input. Continues on abx. 12/21: Patient remains on fentanyl, Precedex, Versed and Levophed and assist control for 25/30/18/.100 with bilateral chest tubes in place. Patient remains on antibiotic therapy. No acute events reported overnight. 12/22: Patient remains sedated on Precedex and fentanyl and on vasopressor support, blood cultures grew coag negative Staphylococcus and Enterococcus and antibiotic therapy was deescalated to ampicillin by infectious disease. This morning patient was on assist control for 25/30/18/0.100 and respiratory therapy to decrease FiO2 as tolerated. 12/23: Patient remains sedated on Versed, fentanyl, propofol, dexamethasone and vasopressor support with Levophed. Patient is on ampicillin with a T-max of 99 and current vent settings assist-control 425/30/18/0.90 which is being weaned as tolerated by RT. Patient bowel regimen escalated. 12/24: Patient was febrile overnight to 102, remains sedated on Versed, fentanyl, propofol and Precedex and on respiratory support with Levophed. This morning at the time my examination patient was on assist control 425/30/18/0.100. Patient's bowel regimen was escalated. This afternoon patient SPO2 dropped into the upper 60s and low 70s, patient was removed off the ventilator and bagged by RT with improvement in his SPO2 to mid 70s and his ventilator settings were adjusted with an increase in PEEP to 22 and reduction in tidal volume. Patient remained with SPO2 in the 70s to 80s then suddenly dropped his SPO2 again. A CXR was obtained and patient received 40 mg of IV Lasix. CXR showed pneu mothorax and general surgery was consulted for chest tube placement. Patient's existing right chest tube was replaced after removal. During chest tube was placed on the right side and a repeat CXR is being performed. Dr. German and Dr. Henry were kept up to date throughout the process and Dr. Henry was at beside during this time. I attempted to call Kehinde but was unable to contact him but left a voicemail. Jd was called and informed of changes with translation provided by Tayla. I spoke to them on the phone for over 30 minutes and explained the situation. They did not wish to change his CODE STATUS. Per CCM the patient respikes his temperature over the next 24 hours we will reculture his urine and blood. Patient remains on antibiotic therapy for 14 days per infectious disease 01/04/2021. Repeat blood cultures are negative. 12/25: Patient developed subcu emphysema on right chest and a repeat CXR shows minimal pneumothorax on the right chest wall which has not increased in size. At the time of my examination patient was on assist control 400/30/18/0.100 and the subcutaneous emphysema was noted after the patient's PEEP was increased. Patient remains sedated on Versed, fentanyl, Precedex and propofol with vasopressor support of Levophed. Patient's family decided to make the patient an AND and his CODE STATUS was updated. We will continue supportive care. Infectious disease has escalated antibiotic therapy to Zosyn. Hospitalist Physical - Constitutional Vitals: Temp Pulse Resp BP Pulse Ox 99.2 F 101 H 13 106/59 89 12/25/20 12:32 12/25/20 14:15 12/25/20 14:15 12/25/20 14:15 12/25/20 14:15 General appearance: Present: mild distress, well-nourished, other (Vent dependent) - EENT ENT: poor dentition - Neck Neck: Absent: masses or JVD - Respiratory Respiratory effort: normal Respiratory: bilateral: diminished - Cardiovascular Rhythm: regular Heart Sounds: Present: S1 & S2. Absent: systolic murmur, diastolic murmur - Extremities Extremities: no ischemia, pulses intact, pulses symmetrical, normal temperature, normal color Peripheral Pulses: within normal limits - Abdominal General gastrointestinal: soft, non-tender, non-distended, normal bowel sounds - Integumentary Integumentary: Present: warm, dry - Psychiatric Psychiatric: other (Sedated) - Neurologic Neurologic: other (Sedated) - Allied Health Allied health notes reviewed: nursing, RT, social work, case management HEART Score - HEART Score Troponin: Troponin T < 0.010 ng/mL (0.00-0.029) 12/11/20 06:30 Results - Labs CBC & Chem 7: 12/25/20 11:17 12/25/20 11:17 Labs: Laboratory Last Values WBC 19.6 K/mm3 (4.5-11.0) H 12/25/20 11:17 RBC 2.82 M/mm3 (3.65-5.03) L 12/25/20 11:17 Hgb 8.1 gm/dl (11.8-15.2) L 12/25/20 11:17 Hct 25.2 % (35.5-45.6) L 12/25/20 11:17 MCV 89 fl (84-94) 12/25/20 11:17 MCH 29 pg (28-32) 12/25/20 11:17 MCHC 32 % (32-34) 12/25/20 11:17 RDW 16.2 % (13.2-15.2) H 12/25/20 11:17 Plt Count 413 K/mm3 (140-440) 12/25/20 11:17 Lymph % (Auto) 2.0 % (13.4-35.0) L 11/27/20 06:25 Real % (Auto) 5.2 % (0.0-7.3) 11/27/20 06:25 Eos % (Auto) 0.0 % (0.0-4.3) 11/27/20 06:25 Baso % (Auto) 0.1 % (0.0-1.8) 11/27/20 06:25 Lymph # (Auto) 0.3 K/mm3 (1.2-5.4) L 11/27/20 06:25 Real # (Auto) 0.7 K/mm3 (0.0-0.8) 11/27/20 06:25 Eos # (Auto) 0.0 K/mm3 (0.0-0.4) 11/27/20 06:25 Baso # (Auto) 0.0 K/mm3 (0.0-0.1) 11/27/20 06:25 Add Manual Diff Complete 12/24/20 18:57 Total Counted 100 12/24/20 18:57 Seg Neutrophils % Tmr Teacher 12/24/20 18:57 Seg Neuts % (Manual) 92.0 % (40.0-70.0) H 12/24/20 18:57 Band Neutrophils % 2.0 % 12/13/20 11:30 Lymphocytes % (Manual) 5.0 % (13.4-35.0) L 12/24/20 18:57 Monocytes % (Manual) 3.0 % (0.0-7.3) 12/24/20 18:57 Nucleated RBC % Not Reportable 12/24/20 18:57 Seg Neutrophils # 12.7 K/mm3 (1.8-7.7) H 11/27/20 06:25 Seg Neutrophils # Man 17.6 K/mm3 (1.8-7.7) H 12/24/20 18:57 Band Neutrophils # 0.0 K/mm3 12/24/20 18:57 Lymphocytes # (Manual) 1.0 K/mm3 (1.2-5.4) L 12/24/20 18:57 Abs React Lymphs (Man) 0.0 K/mm3 12/24/20 18:57 Monocytes # (Manual) 0.6 K/mm3 (0.0-0.8) 12/24/20 18:57 Eosinophils # (Manual) 0.0 K/mm3 (0.0-0.4) 12/24/20 18:57 Basophils # (Manual) 0.0 K/mm3 (0.0-0.1) 12/24/20 18:57 Metamyelocytes # 0.0 K/mm3 12/24/20 18:57 Myelocytes # 0.0 K/mm3 12/24/20 18:57 Promyelocytes # 0.0 K/mm3 12/24/20 18:57 Blast Cells # 0.0 K/mm3 12/24/20 18:57 WBC Morphology Not Reportable 12/24/20 18:57 Hypersegmented Neuts Not Reportable 12/24/20 18:57 Hyposegmented Neuts Not Reportable 12/24/20 18:57 Hypogranular Neuts Not Reportable 12/24/20 18:57 Smudge Cells Not Reportable 12/24/20 18:57 Toxic Granulation Not Reportable 12/24/20 18:57 Toxic Vacuolation Not Reportable 12/24/20 18:57 Dohle Bodies Not Reportable 12/24/20 18:57 Pelger-Huet Anomaly Not Reportable 12/24/20 18:57 Tony Rods Not Reportable 12/24/20 18:57 Platelet Estimate Not Reportable 12/24/20 18:57 Clumped Platelets Not Reportable 12/24/20 18:57 Plt Clumps, EDTA Not Reportable 12/24/20 18:57 Large Platelets Not Reportable 12/24/20 18:57 Giant Platelets Not Reportable 12/24/20 18:57 Platelet Satelliting Not Reportable 12/24/20 18:57 Plt Morphology Comment Not Reportable 12/24/20 18:57 RBC Morphology Not Reportable 12/24/20 18:57 Dimorphic RBCs Not Reportable 12/24/20 18:57 Polychromasia Not Reportable 12/24/20 18:57 Hypochromasia Not Reportable 12/24/20 18:57 Poikilocytosis Not Reportable 12/24/20 18:57 Anisocytosis Rare 12/24/20 18:57 Microcytosis Not Reportable 12/24/20 18:57 Macrocytosis Not Reportable 12/24/20 18:57 Spherocytes Not Reportable 12/24/20 18:57 Pappenheimer Bodies Not Reportable 12/24/20 18:57 Sickle Cells Not Reportable 12/24/20 18:57 Target Cells Not Reportable 12/24/20 18:57 Tear Drop Cells Not Reportable 12/24/20 18:57 Ovalocytes Not Reportable 12/24/20 18:57 Stomatocytes 1+ 12/03/20 04:35 Helmet Cells Not Reportable 12/24/20 18:[address] [place] Bonif[place] Bodies Not Reportable 12/24/20 18:57 [place] Rings Not Reportable 12/24/20 18:57 Atlantic Cells Not Reportable 12/24/20 18:57 Bite Cells Not Reportable 12/24/20 18:57 Crenated Cell Not Reportable 12/24/20 18:57 Elliptocytes Not Reportable 12/24/20 18:57 Acanthocytes (Spur) Not Reportable 12/24/20 18:57 Rouleaux Not Reportable 12/24/20 18:57 Hemoglobin C Crystals Not Reportable 12/24/20 18:57 Schistocytes Not Reportable 12/24/20 18:57 Malaria parasites Not Reportable 12/24/20 18:57 Yovani Bodies Not Reportable 12/24/20 18:57 Hem Pathologist Commnt No 12/24/20 18:57 D-Dimer 926.11 ng/mlDDU (0-234) H 11/26/20 06:04 ABG pH 7.372 (7.320-7.450) 12/25/20 04:04 POC ABG pCO2 75.6 mmHg (32.0-48.0) H 12/25/20 04:04 ABG pCO2 81.3 mm Hg 12/08/20 04:12 POC ABG pO2 43.3 mmHg (83-108) L 12/25/20 04:04 ABG pO2 69.7 mm Hg (80.0-90.0) L 12/08/20 04:12 POC ABG HCO3 42.9 12/25/20 04:04 ABG HCO3 50.1 mmol/L (20.0-26.0) H 12/08/20 04:12 ABG O2 Saturation 79.8 (0-100) 12/25/20 04:04 ABG O2 Content 13.0 (0.0-44) 12/07/20 05:20 POC ABG Base Excess 14.9 12/25/20 04:04 ABG Base Excess 21.6 mmol/L (-2.0-3.0) H 12/08/20 04:12 ABG Hemoglobin 10.6 (12.0-17.5) L 12/25/20 04:04 ABG Oxyhemoglobin 77.6 (94-98) L 12/25/20 04:04 ABG Carboxyhemoglobin 2.0 % (0.0-5.0) 12/08/20 04:12 ABG Methemoglobin 0.3 (0.0-1.5) 12/25/20 04:04 ABG Sodium 131.4 mmol/L (136.0-145.0) L 12/25/20 04:04 ABG Potassium 4.2 mmol/L (3.40-4.50) 12/25/20 04:04 ABG Chloride 90.0 mmol/L (98-107) L 12/25/20 04:04 ABG Glucose 185 mg/dL (65-95) H 12/25/20 04:04 Oxyhemoglobin 93.2 % (95.0-99.0) L 12/08/20 04:12 Carboxyhemoglobin 2.4 (0.5-1.5) H 12/25/20 04:04 FiO2 90 12/23/20 05:19 FiO2 % 100 12/25/20 04:04 Sodium 136 mmol/L (137-145) L 12/25/20 11:17 Potassium 4.2 mmol/L (3.6-5.0) 12/25/20 11:17 Chloride 92.3 mmol/L (98-107) L 12/25/20 11:17 Carbon Dioxide 44 mmol/L (22-30) H* 12/25/20 11:17 Anion Gap 4 mmol/L 12/25/20 11:17 BUN 17 mg/dL (9-20) 12/25/20 11:17 Creatinine 0.3 mg/dL (0.8-1.3) L 12/25/20 11:17 Estimated GFR > 60 ml/min 12/25/20 11:17 BUN/Creatinine Ratio 57 % 12/25/20 11:17 Glucose 240 mg/dL (75-100) H 12/25/20 11:17 POC Glucose 210 mg/dL (70-105) H 12/25/20 12:07 Hemoglobin A1c 11.7 % (4-6) H 11/16/20 05:29 Lactic Acid 2.60 mmol/L (0.7-2.0) H* 11/16/20 05:29 Calcium 7.3 mg/dL (8.4-10.2) L 12/25/20 11:17 Phosphorus 2.60 mg/dL (2.5-4.5) 12/17/20 17:25 Magnesium 1.60 mg/dL (1.7-2.3) L 12/17/20 17:25 Ferritin 778.8 ng/mL (30.0-300.0) H 11/26/20 04:00 Total Bilirubin 0.40 mg/dL (0.1-1.2) 12/17/20 17:25 AST 29 units/L (5-40) 12/17/20 17:25 ALT 47 units/L (7-56) 12/17/20 17:25 Alkaline Phosphatase 119 units/L (35-129) 12/17/20 17:25 Lactate Dehydrogenase 288 units/L (91-180) H 11/26/20 04:00 Total Creatine Kinase 47 units/L (55-170) L 12/17/20 17:25 CK-MB (CK-2) 1.8 ng/mL (0.0-4.0) 12/17/20 17:25 CK-MB (CK-2) Rel Index 3.8 (0-4) 12/17/20 17:25 Troponin T < 0.010 ng/mL (0.00-0.029) 12/11/20 06:30 C-Reactive Protein 1.40 mg/dL (0.00-1.30) H 11/26/20 04:00 NT-Pro-B Natriuret Pep 107.2 pg/mL (0-900) 11/17/20 10:21 Total Protein 6.2 g/dL (6.3-8.2) L 12/17/20 17:25 Albumin 2.1 g/dL (3.9-5) L 12/17/20 17:25 Albumin/Globulin Ratio 0.5 % 12/17/20 17:25 Triglycerides 328 mg/dL (2-149) H 12/25/20 11:17 Procalcitonin 0.16 ng/mL (<0.15) 12/12/20 05:16 Arterial Blood Glucose 185 mg/dL (65-95) H 12/25/20 04:04 Arterial Blood Ionized Calcium 4.1 mg/dL (4.6-5.3) L 12/25/20 04:04 Urine Color Yellow (Yellow) 12/21/20 Unknown Urine Turbidity Cloudy (Clear) 12/21/20 Unknown Urine pH 6.0 (5.0-7.0) 12/21/20 Unknown Ur Specific [place] 1.013 (1.003-1.030) 12/21/20 Unknown Urine Protein <15 mg/dl mg/dL (Negative) 12/21/20 Unknown Urine Glucose (UA) Neg mg/dL (Negative) 12/21/20 Unknown Urine Ketones Neg mg/dL (Negative) 12/21/20 Unknown Urine Blood Neg (Negative) 12/21/20 Unknown Urine Nitrite Neg (Negative) 12/21/20 Unknown Urine Bilirubin Neg (Negative) 12/21/20 Unknown Urine Urobilinogen < 2.0 mg/dL (<2.0) 12/21/20 Unknown Ur Leukocyte Esterase Mod (Negative) 12/21/20 Unknown Urine WBC (Auto) 172.0 /HPF (0.0-6.0) H 12/21/20 Unknown Urine RBC (Auto) > 182.0 /HPF (0.0-6.0) 12/21/20 Unknown U Epithel Cells (Auto) 3.0 /HPF (0-13.0) 12/21/20 Unknown Urine Bacteria (Auto) 2+ /HPF (Negative) 12/21/20 Unknown Ur Renal Epithelial Cell <1 /LPF 12/21/20 Unknown Urine Mucus 2+ /HPF 12/21/20 Unknown Urine Yeast (Budding) 3+ /HPF 12/21/20 Unknown Vancomycin Trough 16.9 ug/mL (5.0-20.0) 12/19/20 15:46 Coronavirus (PCR) Positive (Negative) A 12/13/20 10:00 Hepatitis A IgM Ab Non-reactive (NonReactive) 12/17/20 21:40 Hep Bs Antigen Non-reactive (Negative) 12/17/20 21:40 Hep B Core IgM Ab Non-reactive (NonReactive) 12/17/20 21:40 Hepatitis C Antibody Non-reactive (NonReactive) 12/17/20 21:40 HIV 1&2 Antibody Rapid Non react (Non React) 12/17/20 21:40 HIV P24 Antigen Non react (Non React) 12/17/20 21:40 Microbiology: Microbiology 12/21/20 16:44 Peripheral/Venous Blood Culture - Preliminary NO GROWTH AFTER 72 HOURS 12/21/20 16:44 Peripheral/Venous Blood Culture - Preliminary NO GROWTH AFTER 72 HOURS - Diagnostic Impressions Diagnostic Impressions: Echocardiogram 11/16/20 10:34 Transthoracic Echocardiogram Indication: Shortness of breath-COVID BP: 108/77 HR: 92 Conclusions *Global left ventricular systolic function is normal. *The estimated ejection fraction is 60-65%. *Mild to moderate concentric left ventricular hypertrophy is observed. *There is trace of mitral regurgitation. *There is mild to moderate tricuspid regurgitation. *There is evidence of mild pulmonary hypertension. *The right ventricular systolic pressure is calculated at 31 mmHg. Findings Left Ventricle: The left ventricular chamber size is normal. Mild to moderate concentric left ventricular hypertrophy is observed. Global left ventricular systolic function is normal. The estimated ejection fraction is 60-65%. Left Atrium: The left atrial chamber size is normal. Right Ventricle: The right ventricular cavity size is normal. The right ventricular global systolic function is normal. Right Atrium: The right atrial cavity size is normal. Aortic Valve: The aortic valve is trileaflet. There is no evidence of aortic regurgitation. There is no evidence of aortic stenosis. Mitral Valve: The mitral valve leaflets appear normal. There is trace of mitral regurgitation. There is no evidence of mitral stenosis. Tricuspid Valve: The tricuspid valve leaflets are normal. There is mild to moderate tricuspid regurgitation. The right ventricular systolic pressure is calculated at 31 mmHg. There is evidence of mild pulmonary hypertension. Pulmonic Valve: There is trace pulmonic regurgitation. Pericardium: There is no pericardial effusion. Aorta: There is no dilatation of the ascending aorta. There is no dilatation of the aortic root. Venous: The inferior vena cava appears normal in size. Measurements Chambers 2D Name Value Normal Range IVSd (2D) 0.81 cm (0.6 - 1.1) LVPWd (2D) 0.79 cm (0.6 - 1.1) LVIDd (2D) 4.22 cm (3.7 - 5.6) LVIDs (2D) 3.1 cm (2 - 3.8) LV FS (2D) 26.71 % - EF Teichholz (2D) 52.55 % - Ao root diameter (2D) 3.34 cm (2 - 3.7) Volumes/Mass Name Value Normal Range LA ESV SP 4CH (A/L) 10.87 ml - LA ESV SP 2CH (A/L) 18.74 ml - LA ESV BP (A/L) 16.38 ml - LA ESV BP (A/L) index 8.62 ml/m2 - LA ESV SP 4CH (MOD) 10.32 ml - LA ESV SP 2CH (MOD) 17.66 ml - LA ESV BP (MOD) 15.12 ml - LA ESV BP (MOD) index 7.96 ml/m2 - Diastolic/Systolic Function Name Value Normal Range MV E-wave Vmax 0.76 m/sec - MV deceleration time 133.63 msec - MV A-wave Vmax 1.1 m/sec - MV E:A ratio 0.69 ratio - Aortic Valve Name Value Normal Range AV Vmax 1.44 m/sec - AV VTI 22.94 cm - AV peak gradient 8.33 mmHg - AV mean gradient 4.73 mmHg - LVOT diameter 2.2 cm - LVOT Vmax 1.04 m/sec - LVOT VTI 18.88 cm - LVOT peak gradient 4.34 mmHg - LVOT mean gradient 2.31 mmHg - SV LVOT 72.05 ml - EVANGELISTA (continuity Vmax) 2.75 cm2 - EVANGELISTA (continuity VTI) 3.14 cm2 - Tricuspid Valve Name Value Normal Range TR Vmax 2.64 m/sec - TR peak gradient 28 mmHg - RAP 3 mmHg - RVSP 31 mmHg - Gupta/IV: Voiding Method Indwelling Catheter IV Catheter Type [Left Peripheral IV Antecubital] Active Medications - Current Medications Current Medications: Generic Name Dose Route Start Last Admin Trade Name Freq PRN Reason Stop Dose Admin Acetaminophen 650 mg 11/15/20 23:55 12/25/20 07:24 Acetaminophen 325 Mg Tab PO 650 mg Q4H PRN Administration Pain MILD(1-3)/Fever >100.5/BUTTS Lipase/Protease/Amylase 1 each 11/23/20 11:53 12/05/20 23:45 Lipase 10,500/Protease 25,000/Amylase 43,750 (Units) Dr Cap FEEDTUBE 1 each PRN PRN Administration For Clogged Feeding Tube Dextrose 25 ml 12/10/20 05:21 12/10/20 05:24 Dextrose 50% In Water (25gm) 50 Ml Syringe IV 25 ml Q30MIN PRN Administration Hypoglycemia Protocol Docusate Sodium 100 mg 12/23/20 10:00 12/25/20 10:16 Docusate Sodium 100 Mg/10 Ml Oral Liqd PO 100 mg BID RAEANN Administration Enoxaparin Sodium 40 mg 12/03/20 22:00 12/24/20 23:24 Enoxaparin 40 Mg/0.4 Ml Inj SUB-Q 40 mg QDAY@2200 RAEANN Administration Famotidine 20 mg 12/16/20 10:00 12/25/20 10:17 Famotidine 20 Mg Tab PO 20 mg BID RAAENN Administration Hydrophilic Ointment 1 applic 11/21/20 21:53 11/30/20 21:33 Lip Therapy Vaseline TP 1 applic Q2HR PRN Administration Dry Lips Midazolam HCl 100 mg/ Sodium 100 mls @ 2 mls/hr 11/21/20 22:00 12/25/20 13:21 Chloride IV 5 mg/hr TITR RAEANN 5 mls/hr Administration Protocol 2 MG/HR Norepinephrine 4 mg in 250 mls @ 7.5 mls/hr 11/22/20 17:00 12/25/20 14:20 Levophed Drip 4 Mg/Ns 250 Ml IV 14 mcg/min TITR RAEANN 52.5 mls/hr Administration Protocol 2 MCG/MIN Propofol 1,000 mg in 100 mls @ 2.175 mls/hr 11/27/20 12:00 12/25/20 02:33 Diprivan 10 Mg/Ml IV 20 mcg/kg/min TITR RAEANN 8.7 mls/hr Titration Protocol 5 MCG/KG/MIN Dexmedetomidine HCl 400 mcg/ 104 mls @ 4.441 mls/hr 12/10/20 13:00 12/25/20 07:24 Sodium Chloride IV 0.7 mcg/kg/hr TITRATE RAEANN 15.543 mls/hr Administration Protocol 0.2 MCG/KG/HR Fentanyl Citrate 2,000 mcg in 100 mls @ 3.9 mls/hr 12/18/20 19:00 12/25/20 14:19 Fentanyl Drip Premix IV 4 mcg/kg/hr TITR RAEANN 15.6 mls/hr Administration Protocol 1 MCG/KG/HR Vasopressin 20 unit/ Sodium 101 mls @ 9.09 mls/hr 12/24/20 18:30 Chloride IV TITR RAEANN Protocol 0.03 UNITS/MIN Piperacillin Sod/Tazobactam Sod 4.5 gm in 100 mls @ 200 mls/hr 12/25/20 12:00 12/25/20 12:30 Zosyn/Ns 4.5gm/100ml IV 200 mls/hr Q6H [facility] Administration Protocol Insulin Glargine 8 units 12/17/20 13:52 12/24/20 23:24 Insulin Glargine 100 Units/Ml SUB-Q 8 units QHS [facility] Administration Insulin Human Lispro 0 unit 11/22/20 06:00 12/25/20 12:18 Insulin Lispro 100 Unit/Ml SUB-Q 4 unit Q6HR [facility] Administration Protocol Metoclopramide HCl 10 mg 11/15/20 23:55 Metoclopramide 10 Mg/2 Ml Inj IV Q6H PRN Nausea And Vomiting Multi-Ingred Cream/Lotion/Oil/Oint 1 applic 11/21/20 21:53 Mineral Oil/Petrolatum, White Ophth Oint 3.5 Gm OU Q4HR PRN Dry Eye(s) Ondansetron HCl 4 mg 11/15/20 23:55 Ondansetron 4 Mg/2 Ml Inj IV Q8H PRN Nausea And Vomiting Polyethylene Glycol 17 gm 12/23/20 10:00 12/25/20 10:16 Polyethylene Glycol 3350 17 Gm Powder PO 17 gm QDAY RAEANN Administration Senna/Docusate Sodium 2 tab 12/21/20 14:00 12/25/20 14:19 Sennosides/Docusate Sodium 8.6/50 Mg Tab PO 2 tab Q8HR RAEANN Administration Simple Syrup 15 ml 11/23/20 11:53 Simple Syrup 15 Ml FEEDTUBE PRN PRN Hypoglycemia Simple Syrup 30 ml 11/23/20 11:53 Simple Syrup 15 Ml FEEDTUBE PRN PRN Hypoglycemia Sodium Bicarbonate 325 mg 11/23/20 11:53 12/05/20 23:46 Sodium Bicarbonate 325 Mg Tab FEEDTUBE 325 mg PRN PRN Administration For Clogged Feeding Tube Sodium Chloride 10 ml 11/16/20 10:00 12/25/20 10:17 Sodium Chloride 0.9% 10 Ml Flush Syringe IV 10 ml BID RAEANN Administration Sodium Chloride 10 ml 11/15/20 23:55 12/03/20 00:21 Sodium Chloride 0.9% 10 Ml Flush Syringe IV 10 ml PRN PRN Administration LINE FLUSH Nutrition/Malnutrition Assess - Dietary Evaluation Nutrition/Malnutrition Findings: Nutrition Notes Start: 11/20/20 12:03 Freq: Status: Active Protocol: Document 12/25/20 11:32 AL (Rec: 12/25/20 11:37 AL [id number]) Co-Sign 12/25/20 11:32 CW Nutrition Notes Initial or Follow up Reassessment Current Diagnosis Diabetes,Sepsis,Respiratory Failure Other Pertinent Diagnosis Bilat pneu, COVID-19 (+) Current Diet Glucerna 1.2 at 60 ml/hr Labs/Tests Reviewed Pertinent Medications Levophed in NS Propofol at 8.7 ml/hr (229 kcal) Lasix Height 5 ft 6 in Weight 83.9 kg Usual Body Weight 80.5 kg [place] Body Weight (kg) 64.54 BMI 29.8 Weight change and time frame Wt change 2.8 kg (3%) noted. Pt has edema. Weight Status Overweight Subjective/Other Information F/U for TF tolerance and last BM. Per RN, pt had last BM yesterday 12/24. Pt tolerates TF at 60 ml/hr (goal rate). Percent of energy/protein needs met: 100%/100% Burn Absent Trauma Absent GI Symptoms None Difficulty In Swallowing,Chewing Current % PO Negligible Minimum of two criteria Yes Interpretation of Weight Loss (severe) >2% in 1 week Fluid Accumulation Moderate to Severe (severe) #3 Nutrition Diagnosis Inadequate oral intake Diagnosis Progress(for reassessment Continues documentation) #2 Nutrition Diagnosis Malnutrition As Evidenced by Signs and Symptoms Pt meeting 100%/100% of estimated energy/protein needs via TF for >7 days Diagnosis Progress(for reassessment Improved documentation) #1 Nutrition Diagnosis Unintended weight loss Diagnosis Progress(for reassessment Continues documentation) Is patient on ventilator? Yes Is Patient Ambulatory and/or Out of Bed No REE-([facility]-confined to bed) 1920.756 Kcal/Kg value to use for calculation 22 Approximate Energy Requirements Using 1846 kcal/Kg Calculation Used for Recommendations [facility][1] Additional Notes Protein: 87-145 g/day (1.2-2g/ kg) Fluid: 1ml/kcal or per MD Nutrition Intervention Change Diet Order: Continue TF Nutrition Support: Glucerna 1.2 at 65 ml/hr. Flush 125 ml q4h Kcal 1,872 Protein (gm) 93 Fluid (mL) 1,255 Goal #1 Meet at least 75% of energy and protein needs via TF Goal #2 TF tolerance Anticipated Discharge Needs: Unable to determine at this time Follow-Up By: 01/01/21 Additional Comments F/U for TF tolerance.
--- NOTE | 2020-12-25 15:41 | Progress Note ---
Assessment and Plan 12/25/20 Multi Organ Fail Resp Fail PTX hypoxia P: supp care unable to wean on support see prev notes Subjective Date of service: 12/25/20 Principal diagnosis: COVID-19 Interval history: 12/25 chart reviewed discussed w staff see prev notes on pressors, on vent, unresposive sat 88-90 on high peep a/c has 3 chest tubes and sig SQ air covered w abx on sedation AND Objective Vital Signs - 12hr 12/25/20 12/25/20 12/25/20 03:45 04:00 04:15 Temperature 101.6 F H Pulse Rate 131 H 135 H 137 H Respiratory 30 H 30 H 31 H Rate Blood Pressure 113/61 94/50 86/49 O2 Sat by Pulse 78 L 77 L 79 L Oximetry 12/25/20 12/25/20 12/25/20 04:28 04:30 04:45 Temperature Pulse Rate 130 H 130 H 126 H Respiratory 30 H 30 H Rate Blood Pressure 86/49 82/42 78/43 O2 Sat by Pulse 79 L 79 L 81 L Oximetry 12/25/20 12/25/20 12/25/20 05:00 05:15 05:30 Temperature Pulse Rate 121 H 122 H 119 H Respiratory 30 H 30 H 30 H Rate Blood Pressure 98/57 98/57 93/55 O2 Sat by Pulse 84 86 83 L Oximetry 12/25/20 12/25/20 12/25/20 05:45 06:00 06:15 Temperature Pulse Rate 119 H 116 H 114 H Respiratory 30 H 30 H 30 H Rate Blood Pressure 95/52 90/51 86/47 O2 Sat by Pulse 84 86 86 Oximetry 12/25/20 12/25/20 12/25/20 06:30 06:45 07:00 Temperature Pulse Rate 114 H 113 H 107 H Respiratory 30 H 30 H 30 H Rate Blood Pressure 83/46 90/47 117/62 O2 Sat by Pulse 85 84 86 Oximetry 12/25/20 12/25/20 12/25/20 07:15 07:30 07:32 Temperature 101.5 F H Pulse Rate 107 H 107 H Respiratory 30 H 30 H Rate Blood Pressure 109/54 103/54 O2 Sat by Pulse 85 85 Oximetry 12/25/20 12/25/20 12/25/20 07:45 08:00 08:15 Temperature Pulse Rate 109 H 110 H 114 H Respiratory 30 H 30 H 30 H Rate Blood Pressure 91/55 87/57 103/61 O2 Sat by Pulse 83 L 83 L 83 L Oximetry 12/25/20 12/25/20 12/25/20 08:30 08:45 08:58 Temperature Pulse Rate 117 H 108 H 99 H Respiratory 30 H 30 H Rate Blood Pressure 116/58 125/63 132/69 O2 Sat by Pulse 82 L 83 L Oximetry 12/25/20 12/25/20 12/25/20 09:00 09:15 09:30 Temperature Pulse Rate 100 H 103 H 97 H Respiratory 30 H 30 H 30 H Rate Blood Pressure 132/69 125/71 130/70 O2 Sat by Pulse 84 80 L 82 L Oximetry 12/25/20 12/25/20 12/25/20 09:45 10:00 10:15 Temperature Pulse Rate 100 H 101 H 98 H Respiratory 30 H 30 H 30 H Rate Blood Pressure 138/72 139/81 130/74 O2 Sat by Pulse 82 L 82 L 83 L Oximetry 12/25/20 12/25/20 12/25/20 10:30 10:45 11:00 Temperature Pulse Rate 101 H 109 H 111 H Respiratory 30 H 30 H 30 H Rate Blood Pressure 137/72 139/73 143/79 O2 Sat by Pulse 81 L 88 91 Oximetry 12/25/20 12/25/20 12/25/20 11:15 11:30 11:45 Temperature Pulse Rate 117 H 115 H 116 H Respiratory 30 H 29 H 30 H Rate Blood Pressure 142/82 151/81 135/78 O2 Sat by Pulse 91 79 L 90 Oximetry 12/25/20 12/25/20 12/25/20 12:00 12:15 12:30 Temperature Pulse Rate 122 H 122 H 135 H Respiratory 30 H 30 H 30 H Rate Blood Pressure 142/79 143/77 158/79 O2 Sat by Pulse 89 89 89 Oximetry 12/25/20 12/25/20 12/25/20 12:32 12:46 13:00 Temperature 99.2 F Pulse Rate 123 H 124 H Respiratory 30 H 30 H Rate Blood Pressure 131/63 117/61 O2 Sat by Pulse 88 87 Oximetry 12/25/20 12/25/20 12/25/20 13:01 13:15 13:30 Temperature Pulse Rate 119 H 115 H 112 H Respiratory 30 H 30 H Rate Blood Pressure 117/61 110/63 110/57 O2 Sat by Pulse 87 87 87 Oximetry 12/25/20 12/25/20 12/25/20 13:45 14:00 14:15 Temperature Pulse Rate 111 H 106 H 101 H Respiratory 30 H 30 H 13 Rate Blood Pressure 113/61 101/59 106/59 O2 Sat by Pulse 89 88 89 Oximetry Constitutional: lethargic, comatose, other (on vent orally intubated) ENT: other (Now intubated) Effort: other (vent support ) Ascultation: Bilateral: diminished breath sounds, rales, rhonchi, other (coarse BS bilaterally) Percussion: Bilateral: not dull Cardiovascular: regular rate and rhythm (tachy ) Gastrointestinal: soft, non-tender, non-distended Integumentary: normal Extremities: no cyanosis, no edema, pink and warm Neurologic: other (sedated) Psychiatric: other (sedated) CBC and BMP: 12/25/20 11:17 12/25/20 11:17 ABG, PT/INR, D-dimer: ABG ABG pH 7.372 (7.320-7.450) 12/25/20 04:04 POC ABG pCO2 75.6 mmHg (32.0-48.0) H 12/25/20 04:04 ABG pCO2 81.3 mm Hg 12/08/20 04:12 POC ABG pO2 43.3 mmHg (83-108) L 12/25/20 04:04 ABG pO2 69.7 mm Hg (80.0-90.0) L 12/08/20 04:12 POC ABG HCO3 42.9 12/25/20 04:04 ABG O2 Saturation 79.8 (0-100) 12/25/20 04:04 PT/INR, D-dimer D-Dimer 926.11 ng/mlDDU (0-234) H 11/26/20 06:04 Abnormal lab findings: Abnormal Labs 11/15/20 11/15/20 11/15/20 10:39 10:39 10:39 WBC 14.3 H RBC 5.17 H Hgb Hct RDW Plt Count Lymph % (Auto) 7.8 L [place] % (Auto) 7.6 H Lymph # (Auto) 1.1 L [place] # (Auto) 1.1 H Baso # (Auto) Seg Neutrophils % 83.3 H Seg Neuts % (Manual) Lymphocytes % (Manual) Seg Neutrophils # 11.9 H Seg Neutrophils # Man Lymphocytes # (Manual) D-Dimer ABG pH POC ABG pCO2 POC ABG pO2 ABG pO2 ABG HCO3 ABG O2 Saturation ABG Base Excess ABG Hemoglobin ABG Oxyhemoglobin ABG Sodium ABG Potassium ABG Chloride ABG Glucose Oxyhemoglobin Carboxyhemoglobin Sodium 128 L Potassium Chloride 96.0 L Carbon Dioxide BUN Creatinine 0.7 L Glucose 238 H POC Glucose Hemoglobin A1c Lactic Acid 4.10 H* Calcium 7.0 L Magnesium Ferritin Total Bilirubin 1.40 H AST 49 H ALT 70 H Alkaline Phosphatase Lactate Dehydrogenase 663 H Total Creatine Kinase C-Reactive Protein 19.80 H Total Protein Albumin 2.9 L Triglycerides Arterial Blood Glucose Arterial Blood Ionized Calcium Ur Specific [place] Urine WBC (Auto) Vancomycin Trough Coronavirus (PCR) 11/15/20 11/15/20 11/15/20 10:39 10:39 11:20 WBC RBC Hgb Hct RDW Plt Count Lymph % (Auto) [place] % (Auto) Lymph # (Auto) [place] # (Auto) Baso # (Auto) Seg Neutrophils % Seg Neuts % (Manual) Lymphocytes % (Manual) Seg Neutrophils # Seg Neutrophils # Man Lymphocytes # (Manual) D-Dimer > 67494 H ABG pH POC ABG pCO2 29.9 L POC ABG pO2 137.3 H ABG pO2 ABG HCO3 ABG O2 Saturation ABG Base Excess ABG Hemoglobin ABG Oxyhemoglobin ABG Sodium 126.5 L ABG Potassium ABG Chloride ABG Glucose 248 H Oxyhemoglobin Carboxyhemoglobin Sodium Potassium Chloride Carbon Dioxide BUN Creatinine Glucose POC Glucose Hemoglobin A1c Lactic Acid Calcium Magnesium Ferritin 672.8 H Total Bilirubin AST ALT Alkaline Phosphatase Lactate Dehydrogenase Total Creatine Kinase C-Reactive Protein Total Protein Albumin Triglycerides Arterial Blood Glucose 248 H Arterial Blood Ionized Calcium 4.1 L Ur Specific [place] Urine WBC (Auto) Vancomycin Trough Coronavirus (PCR) 11/15/20 11/15/20 11/16/20 13:41 23:41 01:45 WBC RBC Hgb Hct RDW Plt Count Lymph % (Auto) [place] % (Auto) Lymph # (Auto) [place] # (Auto) Baso # (Auto) Seg Neutrophils % Seg Neuts % (Manual) Lymphocytes % (Manual) Seg Neutrophils # Seg Neutrophils # Man Lymphocytes # (Manual) D-Dimer ABG pH POC ABG pCO2 POC ABG pO2 ABG pO2 ABG HCO3 ABG O2 Saturation ABG Base Excess ABG Hemoglobin ABG Oxyhemoglobin ABG Sodium ABG Potassium ABG Chloride ABG Glucose Oxyhemoglobin Carboxyhemoglobin Sodium Potassium Chloride Carbon Dioxide BUN Creatinine Glucose POC Glucose 284 H Hemoglobin A1c Lactic Acid 2.30 H* Calcium Magnesium Ferritin Total Bilirubin AST ALT Alkaline Phosphatase Lactate Dehydrogenase Total Creatine Kinase C-Reactive Protein Total Protein Albumin Triglycerides Arterial Blood Glucose Arterial Blood Ionized Calcium Ur Specific [place] 1.037 H Urine WBC (Auto) Vancomycin Trough Coronavirus (PCR) 11/16/20 11/16/20 11/16/20 05:29 05:29 05:29 WBC 12.9 H RBC Hgb Hct RDW Plt Count Lymph % (Auto) 4.5 L [place] % (Auto) Lymph # (Auto) 0.6 L [place] # (Auto) Baso # (Auto) 0.2 H Seg Neutrophils % 89.8 H Seg Neuts % (Manual) Lymphocytes % (Manual) Seg Neutrophils # 11.5 H Seg Neutrophils # Man Lymphocytes # (Manual) D-Dimer ABG pH POC ABG pCO2 POC ABG pO2 ABG pO2 ABG HCO3 ABG O2 Saturation ABG Base Excess ABG Hemoglobin ABG Oxyhemoglobin ABG Sodium ABG Potassium ABG Chloride ABG Glucose Oxyhemoglobin Carboxyhemoglobin Sodium 131 L Potassium Chloride Carbon Dioxide 21 L BUN 23 H Creatinine 0.6 L Glucose 342 H POC Glucose Hemoglobin A1c Lactic Acid 2.60 H* Calcium 7.0 L Magnesium Ferritin Total Bilirubin AST ALT Alkaline Phosphatase Lactate Dehydrogenase Total Creatine Kinase C-Reactive Protein Total Protein Albumin 2.4 L Triglycerides Arterial Blood Glucose Arterial Blood Ionized Calcium Ur Specific [place] Urine WBC (Auto) Vancomycin Trough Coronavirus (PCR) 11/16/20 11/16/20 11/16/20 05:29 08:11 12:11 WBC RBC Hgb Hct RDW Plt Count Lymph % (Auto) [place] % (Auto) Lymph # (Auto) [place] # (Auto) Baso # (Auto) Seg Neutrophils % Seg Neuts % (Manual) Lymphocytes % (Manual) Seg Neutrophils # Seg Neutrophils # Man Lymphocytes # (Manual) D-Dimer ABG pH POC ABG pCO2 POC ABG pO2 ABG pO2 ABG HCO3 ABG O2 Saturation ABG Base Excess ABG Hemoglobin ABG Oxyhemoglobin ABG Sodium ABG Potassium ABG Chloride ABG Glucose Oxyhemoglobin Carboxyhemoglobin Sodium Potassium Chloride Carbon Dioxide BUN Creatinine Glucose POC Glucose 329 H 320 H Hemoglobin A1c 11.7 H Lactic Acid Calcium Magnesium Ferritin Total Bilirubin AST ALT Alkaline Phosphatase Lactate Dehydrogenase Total Creatine Kinase C-Reactive Protein Total Protein Albumin Triglycerides Arterial Blood Glucose Arterial Blood Ionized Calcium Ur Specific [place] Urine WBC (Auto) Vancomycin Trough Coronavirus (PCR) 11/16/20 11/16/20 11/16/20 16:13 21:29 Unknown WBC RBC Hgb Hct RDW Plt Count Lymph % (Auto) [place] % (Auto) Lymph # (Auto) [place] # (Auto) Baso # (Auto) Seg Neutrophils % Seg Neuts % (Manual) Lymphocytes % (Manual) Seg Neutrophils # Seg Neutrophils # Man Lymphocytes # (Manual) D-Dimer ABG pH POC ABG pCO2 POC ABG pO2 ABG pO2 ABG HCO3 ABG O2 Saturation ABG Base Excess ABG Hemoglobin ABG Oxyhemoglobin ABG Sodium ABG Potassium ABG Chloride ABG Glucose Oxyhemoglobin Carboxyhemoglobin Sodium Potassium Chloride Carbon Dioxide BUN Creatinine Glucose POC Glucose 257 H 376 H Hemoglobin A1c Lactic Acid Calcium Magnesium Ferritin Total Bilirubin AST ALT Alkaline Phosphatase Lactate Dehydrogenase Total Creatine Kinase C-Reactive Protein Total Protein Albumin Triglycerides Arterial Blood Glucose Arterial Blood Ionized Calcium Ur Specific [place] Urine WBC (Auto) Vancomycin Trough Coronavirus (PCR) Positive A 11/17/20 11/17/20 11/17/20 07:42 12:07 17:25 WBC RBC Hgb Hct RDW Plt Count Lymph % (Auto) [place] % (Auto) Lymph # (Auto) [place] # (Auto) Baso # (Auto) Seg Neutrophils % Seg Neuts % (Manual) Lymphocytes % (Manual) Seg Neutrophils # Seg Neutrophils # Man Lymphocytes # (Manual) D-Dimer ABG pH POC ABG pCO2 POC ABG pO2 ABG pO2 ABG HCO3 ABG O2 Saturation ABG Base Excess ABG Hemoglobin ABG Oxyhemoglobin ABG Sodium ABG Potassium ABG Chloride ABG Glucose Oxyhemoglobin Carboxyhemoglobin Sodium Potassium Chloride Carbon Dioxide BUN Creatinine Glucose POC Glucose 231 H 380 H 302 H Hemoglobin A1c Lactic Acid Calcium Magnesium Ferritin Total Bilirubin AST ALT Alkaline Phosphatase Lactate Dehydrogenase Total Creatine Kinase C-Reactive Protein Total Protein Albumin Triglycerides Arterial Blood Glucose Arterial Blood Ionized Calcium Ur Specific [place] Urine WBC (Auto) Vancomycin Trough Coronavirus (PCR) 11/17/20 11/18/20 11/18/20 21:53 04:25 07:45 WBC RBC Hgb Hct RDW Plt Count Lymph % (Auto) [place] % (Auto) Lymph # (Auto) [place] # (Auto) Baso # (Auto) Seg Neutrophils % Seg Neuts % (Manual) Lymphocytes % (Manual) Seg Neutrophils # Seg Neutrophils # Man Lymphocytes # (Manual) D-Dimer ABG pH POC ABG pCO2 POC ABG pO2 ABG pO2 ABG HCO3 ABG O2 Saturation ABG Base Excess ABG Hemoglobin ABG Oxyhemoglobin ABG Sodium ABG Potassium ABG Chloride ABG Glucose Oxyhemoglobin Carboxyhemoglobin Sodium 136 L Potassium Chloride Carbon Dioxide BUN 24 H Creatinine 0.6 L Glucose 212 H POC Glucose 293 H 216 H Hemoglobin A1c Lactic Acid Calcium 7.4 L Magnesium Ferritin Total Bilirubin AST 41 H ALT Alkaline Phosphatase 142 H Lactate Dehydrogenase Total Creatine Kinase C-Reactive Protein Total Protein Albumin 2.3 L Triglycerides Arterial Blood Glucose Arterial Blood Ionized Calcium Ur Specific [place] Urine WBC (Auto) Vancomycin Trough Coronavirus (PCR) 11/18/20 11/18/20 11/18/20 12:28 15:58 21:37 WBC RBC Hgb Hct RDW Plt Count Lymph % (Auto) [place] % (Auto) Lymph # (Auto) [place] # (Auto) Baso # (Auto) Seg Neutrophils % Seg Neuts % (Manual) Lymphocytes % (Manual) Seg Neutrophils # Seg Neutrophils # Man Lymphocytes # (Manual) D-Dimer ABG pH POC ABG pCO2 POC ABG pO2 ABG pO2 ABG HCO3 ABG O2 Saturation ABG Base Excess ABG Hemoglobin ABG Oxyhemoglobin ABG Sodium ABG Potassium ABG Chloride ABG Glucose Oxyhemoglobin Carboxyhemoglobin Sodium Potassium Chloride Carbon Dioxide BUN Creatinine Glucose POC Glucose 165 H 220 H 311 H Hemoglobin A1c Lactic Acid Calcium Magnesium Ferritin Total Bilirubin AST ALT Alkaline Phosphatase Lactate Dehydrogenase Total Creatine Kinase C-Reactive Protein Total Protein Albumin Triglycerides Arterial Blood Glucose Arterial Blood Ionized Calcium Ur Specific [place] Urine WBC (Auto) Vancomycin Trough Coronavirus (PCR) 11/19/20 11/19/20 11/19/20 05:35 07:40 12:39 WBC RBC Hgb Hct RDW Plt Count Lymph % (Auto) [place] % (Auto) Lymph # (Auto) [place] # (Auto) Baso # (Auto) Seg Neutrophils % Seg Neuts % (Manual) Lymphocytes % (Manual) Seg Neutrophils # Seg Neutrophils # Man Lymphocytes # (Manual) D-Dimer ABG pH POC ABG pCO2 POC ABG pO2 ABG pO2 ABG HCO3 ABG O2 Saturation ABG Base Excess ABG Hemoglobin ABG Oxyhemoglobin ABG Sodium ABG Potassium ABG Chloride ABG Glucose Oxyhemoglobin Carboxyhemoglobin Sodium 132 L Potassium Chloride Carbon Dioxide BUN 25 H Creatinine 0.5 L Glucose 179 H POC Glucose 149 H 306 H Hemoglobin A1c Lactic Acid Calcium 7.5 L Magnesium Ferritin Total Bilirubin AST ALT Alkaline Phosphatase 139 H Lactate Dehydrogenase Total Creatine Kinase C-Reactive Protein Total Protein Albumin 2.4 L Triglycerides Arterial Blood Glucose Arterial Blood Ionized Calcium Ur Specific [place] Urine WBC (Auto) Vancomycin Trough Coronavirus (PCR) 11/19/20 11/19/20 11/20/20 16:17 21:25 08:30 WBC RBC Hgb Hct RDW Plt Count Lymph % (Auto) [place] % (Auto) Lymph # (Auto) [place] # (Auto) Baso # (Auto) Seg Neutrophils % Seg Neuts % (Manual) Lymphocytes % (Manual) Seg Neutrophils # Seg Neutrophils # Man Lymphocytes # (Manual) D-Dimer ABG pH POC ABG pCO2 POC ABG pO2 ABG pO2 ABG HCO3 ABG O2 Saturation ABG Base Excess ABG Hemoglobin ABG Oxyhemoglobin ABG Sodium ABG Potassium ABG Chloride ABG Glucose Oxyhemoglobin Carboxyhemoglobin Sodium Potassium Chloride Carbon Dioxide BUN Creatinine Glucose POC Glucose 364 H 347 H 141 H Hemoglobin A1c Lactic Acid Calcium Magnesium Ferritin Total Bilirubin AST ALT Alkaline Phosphatase Lactate Dehydrogenase Total Creatine Kinase C-Reactive Protein Total Protein Albumin Triglycerides Arterial Blood Glucose Arterial Blood Ionized Calcium Ur Specific [place] Urine WBC (Auto) Vancomycin Trough Coronavirus (PCR) 11/20/20 11/20/20 11/20/20 08:50 11:32 16:19 WBC RBC Hgb Hct RDW Plt Count Lymph % (Auto) [place] % (Auto) Lymph # (Auto) [place] # (Auto) Baso # (Auto) Seg Neutrophils % Seg Neuts % (Manual) Lymphocytes % (Manual) Seg Neutrophils # Seg Neutrophils # Man Lymphocytes # (Manual) D-Dimer ABG pH POC ABG pCO2 POC ABG pO2 ABG pO2 ABG HCO3 ABG O2 Saturation ABG Base Excess ABG Hemoglobin ABG Oxyhemoglobin ABG Sodium ABG Potassium ABG Chloride ABG Glucose Oxyhemoglobin Carboxyhemoglobin Sodium 132 L Potassium Chloride 97.6 L Carbon Dioxide BUN 26 H Creatinine 0.5 L Glucose 201 H POC Glucose 296 H 327 H Hemoglobin A1c Lactic Acid Calcium 7.9 L Magnesium Ferritin Total Bilirubin AST ALT Alkaline Phosphatase 137 H Lactate Dehydrogenase Total Creatine Kinase C-Reactive Protein Total Protein Albumin 2.6 L Triglycerides Arterial Blood Glucose Arterial Blood Ionized Calcium Ur Specific [place] Urine WBC (Auto) Vancomycin Trough Coronavirus (PCR) 11/20/20 11/21/20 11/21/20 22:09 07:59 13:51 WBC RBC Hgb Hct RDW Plt Count Lymph % (Auto) [place] % (Auto) Lymph # (Auto) [place] # (Auto) Baso # (Auto) Seg Neutrophils % Seg Neuts % (Manual) Lymphocytes % (Manual) Seg Neutrophils # Seg Neutrophils # Man Lymphocytes # (Manual) D-Dimer ABG pH POC ABG pCO2 POC ABG pO2 ABG pO2 ABG HCO3 ABG O2 Saturation ABG Base Excess ABG Hemoglobin ABG Oxyhemoglobin ABG Sodium ABG Potassium ABG Chloride ABG Glucose Oxyhemoglobin Carboxyhemoglobin Sodium Potassium Chloride Carbon Dioxide BUN Creatinine Glucose POC Glucose 311 H 218 H 304 H Hemoglobin A1c Lactic Acid Calcium Magnesium Ferritin Total Bilirubin AST ALT Alkaline Phosphatase Lactate Dehydrogenase Total Creatine Kinase C-Reactive Protein Total Protein Albumin Triglycerides Arterial Blood Glucose Arterial Blood Ionized Calcium Ur Specific [place] Urine WBC (Auto) Vancomycin Trough Coronavirus (PCR) 11/21/20 11/21/20 11/21/20 16:09 21:34 23:00 WBC RBC Hgb Hct RDW Plt Count Lymph % (Auto) [place] % (Auto) Lymph # (Auto) [place] # (Auto) Baso # (Auto) Seg Neutrophils % Seg Neuts % (Manual) Lymphocytes % (Manual) Seg Neutrophils # Seg Neutrophils # Man Lymphocytes # (Manual) D-Dimer ABG pH 7.206 L POC ABG pCO2 59.3 H POC ABG pO2 76.7 L ABG pO2 ABG HCO3 ABG O2 Saturation ABG Base Excess ABG Hemoglobin ABG Oxyhemoglobin ABG Sodium 133.1 L ABG Potassium ABG Chloride ABG Glucose 320 H Oxyhemoglobin Carboxyhemoglobin Sodium Potassium Chloride Carbon Dioxide BUN Creatinine Glucose POC Glucose 239 H 279 H Hemoglobin A1c Lactic Acid Calcium Magnesium Ferritin Total Bilirubin AST ALT Alkaline Phosphatase Lactate Dehydrogenase Total Creatine Kinase C-Reactive Protein Total Protein Albumin Triglycerides Arterial Blood Glucose 320 H Arterial Blood Ionized Calcium Ur Specific [place] Urine WBC (Auto) Vancomycin Trough Coronavirus (PCR) 11/22/20 11/22/2021 04:52 04:52 04:52 WBC RBC Hgb Hct RDW Plt Count Lymph % (Auto) [place] % (Auto) Lymph # (Auto) [place] # (Auto) Baso # (Auto) Seg Neutrophils % Seg Neuts % (Manual) Lymphocytes % (Manual) Seg Neutrophils # Seg Neutrophils # Man Lymphocytes # (Manual) D-Dimer 1858.36 H ABG pH POC ABG pCO2 POC ABG pO2 ABG pO2 ABG HCO3 ABG O2 Saturation ABG Base Excess ABG Hemoglobin ABG Oxyhemoglobin ABG Sodium ABG Potassium ABG Chloride ABG Glucose Oxyhemoglobin Carboxyhemoglobin Sodium Potassium Chloride Carbon Dioxide BUN Creatinine Glucose POC Glucose Hemoglobin A1c Lactic Acid Calcium Magnesium Ferritin 734.2 H Total Bilirubin AST ALT Alkaline Phosphatase Lactate Dehydrogenase 404 H Total Creatine Kinase C-Reactive Protein 2.80 H Total Protein Albumin Triglycerides Arterial Blood Glucose Arterial Blood Ionized Calcium Ur Specific [place] Urine WBC (Auto) Vancomycin Trough Coronavirus (PCR) 11/22/20 11/22/20 11/22/20 05:12 05:39 11:50 WBC RBC Hgb Hct RDW Plt Count Lymph % (Auto) [place] % (Auto) Lymph # (Auto) [place] # (Auto) Baso # (Auto) Seg Neutrophils % Seg Neuts % (Manual) Lymphocytes % (Manual) Seg Neutrophils # Seg Neutrophils # Man Lymphocytes # (Manual) D-Dimer ABG pH POC ABG pCO2 POC ABG pO2 51.0 L ABG pO2 ABG HCO3 ABG O2 Saturation ABG Base Excess ABG Hemoglobin ABG Oxyhemoglobin ABG Sodium 131.2 L ABG Potassium 4.6 H ABG Chloride ABG Glucose 317 H Oxyhemoglobin Carboxyhemoglobin Sodium Potassium Chloride Carbon Dioxide BUN Creatinine Glucose POC Glucose 340 H 417 H Hemoglobin A1c Lactic Acid Calcium Magnesium Ferritin Total Bilirubin AST ALT Alkaline Phosphatase Lactate Dehydrogenase Total Creatine Kinase C-Reactive Protein Total Protein Albumin Triglycerides Arterial Blood Glucose 317 H Arterial Blood Ionized Calcium 4.4 L Ur Specific [place] Urine WBC (Auto) Vancomycin Trough Coronavirus (PCR) 11/22/20 11/22/20 11/22/20 12:22 12:22 17:10 WBC 14.4 H RBC Hgb Hct RDW Plt Count Lymph % (Auto) [place] % (Auto) Lymph # (Auto) [place] # (Auto) Baso # (Auto) Seg Neutrophils % Seg Neuts % (Manual) 98.0 H Lymphocytes % (Manual) Seg Neutrophils # Seg Neutrophils # Man 14.1 H Lymphocytes # (Manual) 0.0 L D-Dimer ABG pH POC ABG pCO2 POC ABG pO2 ABG pO2 ABG HCO3 ABG O2 Saturation ABG Base Excess ABG Hemoglobin ABG Oxyhemoglobin ABG Sodium ABG Potassium ABG Chloride ABG Glucose Oxyhemoglobin Carboxyhemoglobin Sodium 132 L Potassium Chloride Carbon Dioxide BUN 36 H Creatinine 0.6 L Glucose 219 H POC Glucose 157 H Hemoglobin A1c Lactic Acid Calcium 7.2 L Magnesium Ferritin Total Bilirubin AST ALT Alkaline Phosphatase Lactate Dehydrogenase Total Creatine Kinase C-Reactive Protein Total Protein Albumin Triglycerides Arterial Blood Glucose Arterial Blood Ionized Calcium Ur Specific [place] Urine WBC (Auto) Vancomycin Trough Coronavirus (PCR) 11/22/20 11/22/20 11/22/20 18:33 21:44 23:47 WBC RBC Hgb Hct RDW Plt Count Lymph % (Auto) [place] % (Auto) Lymph # (Auto) [place] # (Auto) Baso # (Auto) Seg Neutrophils % Seg Neuts % (Manual) Lymphocytes % (Manual) Seg Neutrophils # Seg Neutrophils # Man Lymphocytes # (Manual) D-Dimer ABG pH POC ABG pCO2 POC ABG pO2 60.8 L ABG pO2 ABG HCO3 ABG O2 Saturation ABG Base Excess ABG Hemoglobin ABG Oxyhemoglobin 88.1 L ABG Sodium 135.1 L ABG Potassium ABG Chloride ABG Glucose 141 H Oxyhemoglobin Carboxyhemoglobin Sodium Potassium Chloride Carbon Dioxide BUN Creatinine Glucose POC Glucose 117 H 123 H Hemoglobin A1c Lactic Acid Calcium Magnesium Ferritin Total Bilirubin AST ALT Alkaline Phosphatase Lactate Dehydrogenase Total Creatine Kinase C-Reactive Protein Total Protein Albumin Triglycerides Arterial Blood Glucose 141 H Arterial Blood Ionized Calcium Ur Specific [place] Urine WBC (Auto) Vancomycin Trough Coronavirus (PCR) 11/23/20 11/23/20 11/23/20 04:00 04:00 05:23 WBC 14.4 H RBC Hgb Hct RDW Plt Count Lymph % (Auto) [place] % (Auto) Lymph # (Auto) [place] # (Auto) Baso # (Auto) Seg Neutrophils % Seg Neuts % (Manual) Lymphocytes % (Manual) Seg Neutrophils # Seg Neutrophils # Man Lymphocytes # (Manual) D-Dimer ABG pH POC ABG pCO2 POC ABG pO2 ABG pO2 ABG HCO3 ABG O2 Saturation ABG Base Excess ABG Hemoglobin ABG Oxyhemoglobin ABG Sodium ABG Potassium ABG Chloride ABG Glucose Oxyhemoglobin Carboxyhemoglobin Sodium 136 L Potassium Chloride Carbon Dioxide BUN 33 H Creatinine 0.6 L Glucose 115 H POC Glucose 173 H Hemoglobin A1c Lactic Acid Calcium 7.1 L Magnesium Ferritin Total Bilirubin AST 64 H ALT 75 H Alkaline Phosphatase Lactate Dehydrogenase Total Creatine Kinase C-Reactive Protein Total Protein 5.9 L D Albumin 2.4 L Triglycerides Arterial Blood Glucose Arterial Blood Ionized Calcium Ur Specific [place] Urine WBC (Auto) Vancomycin Trough Coronavirus (PCR) 11/23/20 11/23/20 11/23/20 05:40 11:27 17:10 WBC RBC Hgb Hct RDW Plt Count Lymph % (Auto) [place] % (Auto) Lymph # (Auto) [place] # (Auto) Baso # (Auto) Seg Neutrophils % Seg Neuts % (Manual) Lymphocytes % (Manual) Seg Neutrophils # Seg Neutrophils # Man Lymphocytes # (Manual) D-Dimer ABG pH POC ABG pCO2 POC ABG pO2 56.5 L ABG pO2 ABG HCO3 ABG O2 Saturation ABG Base Excess ABG Hemoglobin ABG Oxyhemoglobin ABG Sodium ABG Potassium ABG Chloride 109.0 H ABG Glucose 114 H Oxyhemoglobin Carboxyhemoglobin Sodium Potassium Chloride Carbon Dioxide BUN Creatinine Glucose POC Glucose 114 H 136 H Hemoglobin A1c Lactic Acid Calcium Magnesium Ferritin Total Bilirubin AST ALT Alkaline Phosphatase Lactate Dehydrogenase Total Creatine Kinase C-Reactive Protein Total Protein Albumin Triglycerides Arterial Blood Glucose 114 H Arterial Blood Ionized Calcium 4.5 L Ur Specific [place] Urine WBC (Auto) Vancomycin Trough Coronavirus (PCR) 11/24/20 11/24/20 11/24/20 05:14 05:14 05:14 WBC RBC Hgb Hct RDW Plt Count Lymph % (Auto) [place] % (Auto) Lymph # (Auto) [place] # (Auto) Baso # (Auto) Seg Neutrophils % Seg Neuts % (Manual) Lymphocytes % (Manual) Seg Neutrophils # Seg Neutrophils # Man Lymphocytes # (Manual) D-Dimer 1433.39 H ABG pH POC ABG pCO2 POC ABG pO2 ABG pO2 ABG HCO3 ABG O2 Saturation ABG Base Excess ABG Hemoglobin ABG Oxyhemoglobin ABG Sodium ABG Potassium ABG Chloride ABG Glucose Oxyhemoglobin Carboxyhemoglobin Sodium Potassium Chloride Carbon Dioxide BUN Creatinine Glucose POC Glucose Hemoglobin A1c Lactic Acid Calcium Magnesium Ferritin 997.5 H Total Bilirubin AST ALT Alkaline Phosphatase Lactate Dehydrogenase 463 H Total Creatine Kinase C-Reactive Protein Total Protein Albumin Triglycerides Arterial Blood Glucose Arterial Blood Ionized Calcium Ur Specific [place] Urine WBC (Auto) Vancomycin Trough Coronavirus (PCR) 11/24/20 11/24/20 11/24/20 05:31 05:36 12:05 WBC RBC Hgb Hct RDW Plt Count Lymph % (Auto) [place] % (Auto) Lymph # (Auto) [place] # (Auto) Baso # (Auto) Seg Neutrophils % Seg Neuts % (Manual) Lymphocytes % (Manual) Seg Neutrophils # Seg Neutrophils # Man Lymphocytes # (Manual) D-Dimer ABG pH POC ABG pCO2 POC ABG pO2 57.2 L ABG pO2 ABG HCO3 ABG O2 Saturation ABG Base Excess ABG Hemoglobin ABG Oxyhemoglobin ABG Sodium ABG Potassium ABG Chloride ABG Glucose 180 H Oxyhemoglobin Carboxyhemoglobin Sodium Potassium Chloride Carbon Dioxide BUN Creatinine Glucose POC Glucose 199 H 143 H Hemoglobin A1c Lactic Acid Calcium Magnesium Ferritin Total Bilirubin AST ALT Alkaline Phosphatase Lactate Dehydrogenase Total Creatine Kinase C-Reactive Protein Total Protein Albumin Triglycerides Arterial Blood Glucose 180 H Arterial Blood Ionized Calcium 4.5 L Ur Specific [place] Urine WBC (Auto) Vancomycin Trough Coronavirus (PCR) 11/24/20 11/24/20 11/24/20 12:14 17:47 23:47 WBC RBC Hgb Hct RDW Plt Count Lymph % (Auto) [place] % (Auto) Lymph # (Auto) [place] # (Auto) Baso # (Auto) Seg Neutrophils % Seg Neuts % (Manual) Lymphocytes % (Manual) Seg Neutrophils # Seg Neutrophils # Man Lymphocytes # (Manual) D-Dimer ABG pH 7.261 L POC ABG pCO2 59.7 H POC ABG pO2 75.7 L ABG pO2 ABG HCO3 ABG O2 Saturation ABG Base Excess ABG Hemoglobin ABG Oxyhemoglobin 92.5 L ABG Sodium ABG Potassium ABG Chloride 108.0 H ABG Glucose 150 H Oxyhemoglobin Carboxyhemoglobin Sodium Potassium Chloride Carbon Dioxide BUN Creatinine Glucose POC Glucose 223 H 179 H Hemoglobin A1c Lactic Acid Calcium Magnesium Ferritin Total Bilirubin AST ALT Alkaline Phosphatase Lactate Dehydrogenase Total Creatine Kinase C-Reactive Protein Total Protein Albumin Triglycerides Arterial Blood Glucose 150 H Arterial Blood Ionized Calcium Ur Specific [place] Urine WBC (Auto) Vancomycin Trough Coronavirus (PCR) 11/25/20 11/25/20 11/25/20 03:29 05:07 05:15 WBC 13.9 H RBC Hgb Hct RDW Plt Count Lymph % (Auto) [place] % (Auto) Lymph # (Auto) [place] # (Auto) Baso # (Auto) Seg Neutrophils % Seg Neuts % (Manual) 97.0 H Lymphocytes % (Manual) Seg Neutrophils # Seg Neutrophils # Man 13.5 H Lymphocytes # (Manual) 0.0 L D-Dimer ABG pH 7.272 L POC ABG pCO2 69.0 H POC ABG pO2 132.9 H ABG pO2 ABG HCO3 ABG O2 Saturation ABG Base Excess ABG Hemoglobin ABG Oxyhemoglobin ABG Sodium ABG Potassium ABG Chloride ABG Glucose 174 H Oxyhemoglobin Carboxyhemoglobin Sodium Potassium Chloride Carbon Dioxide BUN Creatinine Glucose POC Glucose 168 H Hemoglobin A1c Lactic Acid Calcium Magnesium Ferritin Total Bilirubin AST ALT Alkaline Phosphatase Lactate Dehydrogenase Total Creatine Kinase C-Reactive Protein Total Protein Albumin Triglycerides Arterial Blood Glucose 174 H Arterial Blood Ionized Calcium Ur Specific [place] Urine WBC (Auto) Vancomycin Trough Coronavirus (PCR) 11/25/20 11/25/20 11/25/20 05:15 11:25 17:35 WBC RBC Hgb Hct RDW Plt Count Lymph % (Auto) [place] % (Auto) Lymph # (Auto) [place] # (Auto) Baso # (Auto) Seg Neutrophils % Seg Neuts % (Manual) Lymphocytes % (Manual) Seg Neutrophils # Seg Neutrophils # Man Lymphocytes # (Manual) D-Dimer ABG pH POC ABG pCO2 POC ABG pO2 ABG pO2 ABG HCO3 ABG O2 Saturation ABG Base Excess ABG Hemoglobin ABG Oxyhemoglobin ABG Sodium ABG Potassium ABG Chloride ABG Glucose Oxyhemoglobin Carboxyhemoglobin Sodium Potassium Chloride Carbon Dioxide BUN 29 H Creatinine 0.5 L Glucose 161 H POC Glucose 224 H 228 H Hemoglobin A1c Lactic Acid Calcium 7.8 L Magnesium Ferritin Total Bilirubin AST 89 H ALT 129 H Alkaline Phosphatase Lactate Dehydrogenase Total Creatine Kinase C-Reactive Protein Total Protein 5.8 L Albumin 2.5 L Triglycerides Arterial Blood Glucose Arterial Blood Ionized Calcium Ur Specific [place] Urine WBC (Auto) Vancomycin Trough Coronavirus (PCR) 11/25/20 11/25/20 11/26/20 20:45 23:28 04:00 WBC RBC Hgb Hct RDW Plt Count Lymph % (Auto) [place] % (Auto) Lymph # (Auto) [place] # (Auto) Baso # (Auto) Seg Neutrophils % Seg Neuts % (Manual) Lymphocytes % (Manual) Seg Neutrophils # Seg Neutrophils # Man Lymphocytes # (Manual) D-Dimer ABG pH POC ABG pCO2 POC ABG pO2 ABG pO2 ABG HCO3 ABG O2 Saturation ABG Base Excess ABG Hemoglobin ABG Oxyhemoglobin ABG Sodium ABG Potassium ABG Chloride ABG Glucose Oxyhemoglobin Carboxyhemoglobin Sodium Potassium Chloride Carbon Dioxide BUN Creatinine Glucose POC Glucose 177 H 243 H Hemoglobin A1c Lactic Acid Calcium Magnesium Ferritin 778.8 H Total Bilirubin AST ALT Alkaline Phosphatase Lactate Dehydrogenase Total Creatine Kinase C-Reactive Protein Total Protein Albumin Triglycerides Arterial Blood Glucose Arterial Blood Ionized Calcium Ur Specific [place] Urine WBC (Auto) Vancomycin Trough Coronavirus (PCR) 11/26/20 11/26/20 11/26/20 04:00 05:34 06:04 WBC RBC Hgb Hct RDW Plt Count Lymph % (Auto) [place] % (Auto) Lymph # (Auto) [place] # (Auto) Baso # (Auto) Seg Neutrophils % Seg Neuts % (Manual) Lymphocytes % (Manual) Seg Neutrophils # Seg Neutrophils # Man Lymphocytes # (Manual) D-Dimer 926.11 H ABG pH POC ABG pCO2 POC ABG pO2 ABG pO2 ABG HCO3 ABG O2 Saturation ABG Base Excess ABG Hemoglobin ABG Oxyhemoglobin ABG Sodium ABG Potassium ABG Chloride ABG Glucose Oxyhemoglobin Carboxyhemoglobin Sodium Potassium Chloride Carbon Dioxide 39 H D BUN 30 H Creatinine 0.5 L Glucose 193 H POC Glucose 178 H Hemoglobin A1c Lactic Acid Calcium 7.7 L Magnesium Ferritin Total Bilirubin AST 65 H ALT 132 H Alkaline Phosphatase Lactate Dehydrogenase 288 H Total Creatine Kinase C-Reactive Protein 1.40 H Total Protein 5.7 L Albumin 2.4 L Triglycerides Arterial Blood Glucose Arterial Blood Ionized Calcium Ur Specific [place] Urine WBC (Auto) Vancomycin Trough Coronavirus (PCR) 11/26/20 11/26/20 11/26/20 06:04 08:47 11:20 WBC 12.4 H RBC Hgb Hct RDW Plt Count Lymph % (Auto) [place] % (Auto) Lymph # (Auto) [place] # (Auto) Baso # (Auto) Seg Neutrophils % Seg Neuts % (Manual) 98.0 H Lymphocytes % (Manual) 1.0 L Seg Neutrophils # Seg Neutrophils # Man 12.2 H Lymphocytes # (Manual) 0.1 L D-Dimer ABG pH POC ABG pCO2 75.2 H POC ABG pO2 61.9 L ABG pO2 ABG HCO3 ABG O2 Saturation ABG Base Excess ABG Hemoglobin ABG Oxyhemoglobin 90.3 L ABG Sodium ABG Potassium ABG Chloride ABG Glucose 243 H Oxyhemoglobin Carboxyhemoglobin Sodium Potassium Chloride Carbon Dioxide BUN Creatinine Glucose POC Glucose 255 H Hemoglobin A1c Lactic Acid Calcium Magnesium Ferritin Total Bilirubin AST ALT Alkaline Phosphatase Lactate Dehydrogenase Total Creatine Kinase C-Reactive Protein Total Protein Albumin Triglycerides Arterial Blood Glucose 243 H Arterial Blood Ionized Calcium Ur Specific [place] Urine WBC (Auto) Vancomycin Trough Coronavirus (PCR) 11/26/20 11/26/20 11/26/20 16:20 17:15 23:41 WBC RBC Hgb Hct RDW Plt Count Lymph % (Auto) [place] % (Auto) Lymph # (Auto) [place] # (Auto) Baso # (Auto) Seg Neutrophils % Seg Neuts % (Manual) Lymphocytes % (Manual) Seg Neutrophils # Seg Neutrophils # Man Lymphocytes # (Manual) D-Dimer ABG pH POC ABG pCO2 66.6 H POC ABG pO2 78.1 L ABG pO2 ABG HCO3 ABG O2 Saturation ABG Base Excess ABG Hemoglobin ABG Oxyhemoglobin ABG Sodium ABG Potassium ABG Chloride ABG Glucose 244 H Oxyhemoglobin Carboxyhemoglobin Sodium Potassium Chloride Carbon Dioxide BUN Creatinine Glucose POC Glucose 219 H 210 H Hemoglobin A1c Lactic Acid Calcium Magnesium Ferritin Total Bilirubin AST ALT Alkaline Phosphatase Lactate Dehydrogenase Total Creatine Kinase C-Reactive Protein Total Protein Albumin Triglycerides Arterial Blood Glucose 244 H Arterial Blood Ionized Calcium Ur Specific [place] Urine WBC (Auto) Vancomycin Trough Coronavirus (PCR) 11/27/20 11/27/20 11/27/20 04:46 05:38 06:25 WBC 13.8 H RBC Hgb Hct RDW Plt Count Lymph % (Auto) 2.0 L [place] % (Auto) Lymph # (Auto) 0.3 L [place] # (Auto) Baso # (Auto) Seg Neutrophils % Seg Neuts % (Manual) 96.0 H Lymphocytes % (Manual) Seg Neutrophils # 12.7 H Seg Neutrophils # Man 13.2 H Lymphocytes # (Manual) 0.0 L D-Dimer ABG pH POC ABG pCO2 63.0 H POC ABG pO2 53.6 L ABG pO2 ABG HCO3 ABG O2 Saturation ABG Base Excess ABG Hemoglobin ABG Oxyhemoglobin 87.8 L ABG Sodium 115.4 L ABG Potassium ABG Chloride ABG Glucose 219 H Oxyhemoglobin Carboxyhemoglobin Sodium Potassium Chloride Carbon Dioxide BUN Creatinine Glucose POC Glucose 227 H Hemoglobin A1c Lactic Acid Calcium Magnesium Ferritin Total Bilirubin AST ALT Alkaline Phosphatase Lactate Dehydrogenase Total Creatine Kinase C-Reactive Protein Total Protein Albumin Triglycerides Arterial Blood Glucose 219 H Arterial Blood Ionized Calcium Ur Specific [place] Urine WBC (Auto) Vancomycin Trough Coronavirus (PCR) 11/27/20 11/27/20 11/27/20 06:25 18:05 23:29 WBC RBC Hgb Hct RDW Plt Count Lymph % (Auto) [place] % (Auto) Lymph # (Auto) [place] # (Auto) Baso # (Auto) Seg Neutrophils % Seg Neuts % (Manual) Lymphocytes % (Manual) Seg Neutrophils # Seg Neutrophils # Man Lymphocytes # (Manual) D-Dimer ABG pH POC ABG pCO2 POC ABG pO2 ABG pO2 ABG HCO3 ABG O2 Saturation ABG Base Excess ABG Hemoglobin ABG Oxyhemoglobin ABG Sodium ABG Potassium ABG Chloride ABG Glucose Oxyhemoglobin Carboxyhemoglobin Sodium Potassium Chloride Carbon Dioxide 38 H BUN 34 H Creatinine 0.4 L Glucose 243 H POC Glucose 329 H 227 H Hemoglobin A1c Lactic Acid Calcium 7.9 L Magnesium Ferritin Total Bilirubin AST 50 H ALT 110 H Alkaline Phosphatase Lactate Dehydrogenase Total Creatine Kinase C-Reactive Protein Total Protein 6.1 L Albumin 2.4 L Triglycerides Arterial Blood Glucose Arterial Blood Ionized Calcium Ur Specific [place] Urine WBC (Auto) Vancomycin Trough Coronavirus (PCR) 11/28/20 11/28/20 11/28/20 03:45 03:45 03:46 WBC 12.2 H RBC Hgb Hct RDW Plt Count Lymph % (Auto) [place] % (Auto) Lymph # (Auto) [place] # (Auto) Baso # (Auto) Seg Neutrophils % Seg Neuts % (Manual) 93.0 H Lymphocytes % (Manual) 2.0 L Seg Neutrophils # Seg Neutrophils # Man 11.3 H Lymphocytes # (Manual) 0.2 L D-Dimer ABG pH POC ABG pCO2 68.4 H POC ABG pO2 55.4 L ABG pO2 ABG HCO3 ABG O2 Saturation ABG Base Excess ABG Hemoglobin ABG Oxyhemoglobin ABG Sodium ABG Potassium ABG Chloride ABG Glucose 197 H Oxyhemoglobin Carboxyhemoglobin Sodium Potassium Chloride Carbon Dioxide 36 H BUN 37 H Creatinine 0.4 L Glucose 194 H POC Glucose Hemoglobin A1c Lactic Acid Calcium 8.1 L Magnesium Ferritin Total Bilirubin AST ALT 86 H Alkaline Phosphatase Lactate Dehydrogenase Total Creatine Kinase C-Reactive Protein Total Protein 6.0 L Albumin 2.3 L Triglycerides Arterial Blood Glucose 197 H Arterial Blood Ionized Calcium Ur Specific [place] Urine WBC (Auto) Vancomycin Trough Coronavirus (PCR) 11/28/20 11/28/20 11/29/20 05:24 12:21 04:41 WBC RBC Hgb Hct RDW Plt Count Lymph % (Auto) [place] % (Auto) Lymph # (Auto) [place] # (Auto) Baso # (Auto) Seg Neutrophils % Seg Neuts % (Manual) Lymphocytes % (Manual) Seg Neutrophils # Seg Neutrophils # Man Lymphocytes # (Manual) D-Dimer ABG pH POC ABG pCO2 55.1 H POC ABG pO2 53.6 L ABG pO2 ABG HCO3 ABG O2 Saturation ABG Base Excess ABG Hemoglobin ABG Oxyhemoglobin 87.1 L ABG Sodium 131.2 L ABG Potassium ABG Chloride ABG Glucose 164 H Oxyhemoglobin Carboxyhemoglobin Sodium Potassium Chloride Carbon Dioxide BUN Creatinine Glucose POC Glucose 173 H 126 H Hemoglobin A1c Lactic Acid Calcium Magnesium Ferritin Total Bilirubin AST ALT Alkaline Phosphatase Lactate Dehydrogenase Total Creatine Kinase C-Reactive Protein Total Protein Albumin Triglycerides Arterial Blood Glucose 164 H Arterial Blood Ionized Calcium 4.4 L Ur Specific [place] Urine WBC (Auto) Vancomycin Trough Coronavirus (PCR) 11/29/20 11/29/20 11/29/20 05:29 12:41 13:28 WBC RBC Hgb Hct RDW Plt Count Lymph % (Auto) [place] % (Auto) Lymph # (Auto) [place] # (Auto) Baso # (Auto) Seg Neutrophils % Seg Neuts % (Manual) Lymphocytes % (Manual) Seg Neutrophils # Seg Neutrophils # Man Lymphocytes # (Manual) D-Dimer ABG pH POC ABG pCO2 POC ABG pO2 ABG pO2 ABG HCO3 ABG O2 Saturation ABG Base Excess ABG Hemoglobin ABG Oxyhemoglobin ABG Sodium ABG Potassium ABG Chloride ABG Glucose Oxyhemoglobin Carboxyhemoglobin Sodium Potassium Chloride Carbon Dioxide 40 H BUN 32 H Creatinine 0.4 L Glucose 274 H POC Glucose 173 H 257 H Hemoglobin A1c Lactic Acid Calcium 7.2 L Magnesium Ferritin Total Bilirubin AST 57 H ALT 102 H Alkaline Phosphatase Lactate Dehydrogenase Total Creatine Kinase C-Reactive Protein Total Protein 5.7 L Albumin 2.1 L Triglycerides Arterial Blood Glucose Arterial Blood Ionized Calcium Ur Specific [place] Urine WBC (Auto) Vancomycin Trough Coronavirus (PCR) 11/29/20 11/29/20 11/29/20 15:40 17:36 21:26 WBC RBC Hgb Hct RDW Plt Count Lymph % (Auto) [place] % (Auto) Lymph # (Auto) [place] # (Auto) Baso # (Auto) Seg Neutrophils % Seg Neuts % (Manual) Lymphocytes % (Manual) Seg Neutrophils # Seg Neutrophils # Man Lymphocytes # (Manual) D-Dimer ABG pH POC ABG pCO2 POC ABG pO2 ABG pO2 ABG HCO3 ABG O2 Saturation ABG Base Excess ABG Hemoglobin ABG Oxyhemoglobin ABG Sodium ABG Potassium ABG Chloride ABG Glucose Oxyhemoglobin Carboxyhemoglobin Sodium Potassium Chloride Carbon Dioxide BUN Creatinine Glucose POC Glucose 240 H 244 H Hemoglobin A1c Lactic Acid Calcium Magnesium Ferritin Total Bilirubin AST ALT Alkaline Phosphatase Lactate Dehydrogenase Total Creatine Kinase C-Reactive Protein Total Protein Albumin Triglycerides Arterial Blood Glucose Arterial Blood Ionized Calcium Ur Specific [place] Urine WBC (Auto) Vancomycin Trough 4.0 L Coronavirus (PCR) 11/29/20 11/30/20 11/30/20 23:26 03:30 03:30 WBC RBC Hgb Hct RDW Plt Count Lymph % (Auto) [place] % (Auto) Lymph # (Auto) [place] # (Auto) Baso # (Auto) Seg Neutrophils % Seg Neuts % (Manual) 97.0 H Lymphocytes % (Manual) 1.0 L Seg Neutrophils # Seg Neutrophils # Man 9.9 H Lymphocytes # (Manual) 0.1 L D-Dimer ABG pH POC ABG pCO2 POC ABG pO2 ABG pO2 ABG HCO3 ABG O2 Saturation ABG Base Excess ABG Hemoglobin ABG Oxyhemoglobin ABG Sodium ABG Potassium ABG Chloride ABG Glucose Oxyhemoglobin Carboxyhemoglobin Sodium Potassium Chloride Carbon Dioxide 38 H BUN 34 H Creatinine 0.4 L Glucose 305 H POC Glucose 283 H Hemoglobin A1c Lactic Acid Calcium 7.6 L Magnesium Ferritin Total Bilirubin AST ALT 89 H Alkaline Phosphatase Lactate Dehydrogenase Total Creatine Kinase C-Reactive Protein Total Protein 6.0 L Albumin 2.3 L Triglycerides Arterial Blood Glucose Arterial Blood Ionized Calcium Ur Specific [place] Urine WBC (Auto) Vancomycin Trough Coronavirus (PCR) 11/30/20 11/30/20 11/30/20 03:57 05:22 12:05 WBC RBC Hgb Hct RDW Plt Count Lymph % (Auto) [place] % (Auto) Lymph # (Auto) [place] # (Auto) Baso # (Auto) Seg Neutrophils % Seg Neuts % (Manual) Lymphocytes % (Manual) Seg Neutrophils # Seg Neutrophils # Man Lymphocytes # (Manual) D-Dimer ABG pH POC ABG pCO2 60.8 H POC ABG pO2 51.1 L ABG pO2 ABG HCO3 ABG O2 Saturation ABG Base Excess ABG Hemoglobin ABG Oxyhemoglobin 84.6 L ABG Sodium ABG Potassium ABG Chloride ABG Glucose 315 H Oxyhemoglobin Carboxyhemoglobin Sodium Potassium Chloride Carbon Dioxide BUN Creatinine Glucose POC Glucose 295 H 413 H Hemoglobin A1c Lactic Acid Calcium Magnesium Ferritin Total Bilirubin AST ALT Alkaline Phosphatase Lactate Dehydrogenase Total Creatine Kinase C-Reactive Protein Total Protein Albumin Triglycerides Arterial Blood Glucose 315 H Arterial Blood Ionized Calcium 4.5 L Ur Specific [place] Urine WBC (Auto) Vancomycin Trough Coronavirus (PCR) 11/30/20 11/30/20 12/01/20 17:24 23:25 02:14 WBC RBC Hgb Hct RDW Plt Count Lymph % (Auto) [place] % (Auto) Lymph # (Auto) [place] # (Auto) Baso # (Auto) Seg Neutrophils % Seg Neuts % (Manual) Lymphocytes % (Manual) Seg Neutrophils # Seg Neutrophils # Man Lymphocytes # (Manual) D-Dimer ABG pH 7.278 L POC ABG pCO2 78.1 H POC ABG pO2 79.5 L ABG pO2 ABG HCO3 ABG O2 Saturation ABG Base Excess ABG Hemoglobin 11.6 L ABG Oxyhemoglobin ABG Sodium 134.5 L ABG Potassium 4.6 H ABG Chloride ABG Glucose 286 H Oxyhemoglobin Carboxyhemoglobin Sodium Potassium Chloride Carbon Dioxide BUN Creatinine Glucose POC Glucose 305 H 302 H Hemoglobin A1c Lactic Acid Calcium Magnesium Ferritin Total Bilirubin AST ALT Alkaline Phosphatase Lactate Dehydrogenase Total Creatine Kinase C-Reactive Protein Total Protein Albumin Triglycerides Arterial Blood Glucose 286 H Arterial Blood Ionized Calcium Ur Specific [place] Urine WBC (Auto) Vancomycin Trough Coronavirus (PCR) 12/01/20 12/01/20 12/01/20 03:35 03:35 05:22 WBC 13.4 H RBC 3.54 L Hgb 10.4 L Hct 31.8 L RDW Plt Count Lymph % (Auto) [place] % (Auto) Lymph # (Auto) [place] # (Auto) Baso # (Auto) Seg Neutrophils % Seg Neuts % (Manual) 95.0 H Lymphocytes % (Manual) 3.0 L Seg Neutrophils # Seg Neutrophils # Man 12.7 H Lymphocytes # (Manual) 0.4 L D-Dimer ABG pH POC ABG pCO2 POC ABG pO2 ABG pO2 ABG HCO3 ABG O2 Saturation ABG Base Excess ABG Hemoglobin ABG Oxyhemoglobin ABG Sodium ABG Potassium ABG Chloride ABG Glucose Oxyhemoglobin Carboxyhemoglobin Sodium Potassium Chloride Carbon Dioxide 35 H BUN 34 H Creatinine 0.5 L Glucose 279 H POC Glucose 259 H Hemoglobin A1c Lactic Acid Calcium 7.6 L Magnesium Ferritin Total Bilirubin AST ALT 63 H Alkaline Phosphatase Lactate Dehydrogenase Total Creatine Kinase C-Reactive Protein Total Protein 4.8 L Albumin 2.1 L Triglycerides Arterial Blood Glucose Arterial Blood Ionized Calcium Ur Specific [place] Urine WBC (Auto) Vancomycin Trough Coronavirus (PCR) 12/01/20 12/01/20 12/01/20 12:05 17:40 23:46 WBC RBC Hgb Hct RDW Plt Count Lymph % (Auto) [place] % (Auto) Lymph # (Auto) [place] # (Auto) Baso # (Auto) Seg Neutrophils % Seg Neuts % (Manual) Lymphocytes % (Manual) Seg Neutrophils # Seg Neutrophils # Man Lymphocytes # (Manual) D-Dimer ABG pH POC ABG pCO2 POC ABG pO2 ABG pO2 ABG HCO3 ABG O2 Saturation ABG Base Excess ABG Hemoglobin ABG Oxyhemoglobin ABG Sodium ABG Potassium ABG Chloride ABG Glucose Oxyhemoglobin Carboxyhemoglobin Sodium Potassium Chloride Carbon Dioxide BUN Creatinine Glucose POC Glucose 197 H 244 H 284 H Hemoglobin A1c Lactic Acid Calcium Magnesium Ferritin Total Bilirubin AST ALT Alkaline Phosphatase Lactate Dehydrogenase Total Creatine Kinase C-Reactive Protein Total Protein Albumin Triglycerides Arterial Blood Glucose Arterial Blood Ionized Calcium Ur Specific [place] Urine WBC (Auto) Vancomycin Trough Coronavirus (PCR) 12/02/20 12/02/20 12/02/20 02:14 03:03 04:11 WBC 16.5 H RBC 3.55 L Hgb 10.5 L Hct 31.9 L RDW Plt Count Lymph % (Auto) [place] % (Auto) Lymph # (Auto) [place] # (Auto) Baso # (Auto) Seg Neutrophils % Seg Neuts % (Manual) 90.0 H Lymphocytes % (Manual) 3.0 L Seg Neutrophils # Seg Neutrophils # Man 14.9 H Lymphocytes # (Manual) 0.5 L D-Dimer ABG pH POC ABG pCO2 74.8 H POC ABG pO2 58.9 L ABG pO2 ABG HCO3 ABG O2 Saturation ABG Base Excess ABG Hemoglobin 11.5 L ABG Oxyhemoglobin ABG Sodium ABG Potassium ABG Chloride ABG Glucose 264 H Oxyhemoglobin Carboxyhemoglobin Sodium Potassium Chloride Carbon Dioxide 37 H BUN 30 H Creatinine 0.4 L Glucose 245 H POC Glucose Hemoglobin A1c Lactic Acid Calcium 7.5 L Magnesium Ferritin Total Bilirubin AST ALT Alkaline Phosphatase Lactate Dehydrogenase Total Creatine Kinase C-Reactive Protein Total Protein 5.2 L Albumin 2.2 L Triglycerides Arterial Blood Glucose 264 H Arterial Blood Ionized Calcium 4.5 L Ur Specific [place] Urine WBC (Auto) Vancomycin Trough Coronavirus (PCR) 12/02/20 12/02/20 12/02/20 05:19 11:46 17:52 WBC RBC Hgb Hct RDW Plt Count Lymph % (Auto) [place] % (Auto) Lymph # (Auto) [place] # (Auto) Baso # (Auto) Seg Neutrophils % Seg Neuts % (Manual) Lymphocytes % (Manual) Seg Neutrophils # Seg Neutrophils # Man Lymphocytes # (Manual) D-Dimer ABG pH POC ABG pCO2 POC ABG pO2 ABG pO2 ABG HCO3 ABG O2 Saturation ABG Base Excess ABG Hemoglobin ABG Oxyhemoglobin ABG Sodium ABG Potassium ABG Chloride ABG Glucose Oxyhemoglobin Carboxyhemoglobin Sodium Potassium Chloride Carbon Dioxide BUN Creatinine Glucose POC Glucose 238 H 236 H 233 H Hemoglobin A1c Lactic Acid Calcium Magnesium Ferritin Total Bilirubin AST ALT Alkaline Phosphatase Lactate Dehydrogenase Total Creatine Kinase C-Reactive Protein Total Protein Albumin Triglycerides Arterial Blood Glucose Arterial Blood Ionized Calcium Ur Specific [place] Urine WBC (Auto) Vancomycin Trough Coronavirus (PCR) 12/02/20 12/03/20 12/03/20 23:23 03:21 04:35 WBC RBC Hgb Hct RDW Plt Count 112 L Lymph % (Auto) [place] % (Auto) Lymph # (Auto) [place] # (Auto) Baso # (Auto) Seg Neutrophils % Seg Neuts % (Manual) 93.0 H Lymphocytes % (Manual) 4.0 L Seg Neutrophils # Seg Neutrophils # Man 9.1 H Lymphocytes # (Manual) 0.4 L D-Dimer ABG pH 7.299 L POC ABG pCO2 82.1 H POC ABG pO2 62.4 L ABG pO2 ABG HCO3 ABG O2 Saturation ABG Base Excess ABG Hemoglobin 11.5 L ABG Oxyhemoglobin 89.6 L ABG Sodium 134.3 L ABG Potassium ABG Chloride 95.0 L ABG Glucose 203 H Oxyhemoglobin Carboxyhemoglobin Sodium Potassium Chloride Carbon Dioxide BUN Creatinine Glucose POC Glucose 213 H Hemoglobin A1c Lactic Acid Calcium Magnesium Ferritin Total Bilirubin AST ALT Alkaline Phosphatase Lactate Dehydrogenase Total Creatine Kinase C-Reactive Protein Total Protein Albumin Triglycerides Arterial Blood Glucose 203 H Arterial Blood Ionized Calcium 4.5 L Ur Specific [place] Urine WBC (Auto) Vancomycin Trough Coronavirus (PCR) 12/03/20 12/03/20 12/03/20 04:35 05:42 11:28 WBC RBC Hgb Hct RDW Plt Count Lymph % (Auto) [place] % (Auto) Lymph # (Auto) [place] # (Auto) Baso # (Auto) Seg Neutrophils % Seg Neuts % (Manual) Lymphocytes % (Manual) Seg Neutrophils # Seg Neutrophils # Man Lymphocytes # (Manual) D-Dimer ABG pH POC ABG pCO2 POC ABG pO2 ABG pO2 ABG HCO3 ABG O2 Saturation ABG Base Excess ABG Hemoglobin ABG Oxyhemoglobin ABG Sodium ABG Potassium ABG Chloride ABG Glucose Oxyhemoglobin Carboxyhemoglobin Sodium Potassium Chloride 97.8 L Carbon Dioxide 43 H* BUN 25 H Creatinine 0.3 L Glucose 214 H POC Glucose 193 H 211 H Hemoglobin A1c Lactic Acid Calcium 7.7 L Magnesium Ferritin Total Bilirubin AST ALT 63 H Alkaline Phosphatase 132 H Lactate Dehydrogenase Total Creatine Kinase C-Reactive Protein Total Protein 5.1 L Albumin 2.4 L Triglycerides Arterial Blood Glucose Arterial Blood Ionized Calcium Ur Specific [place] Urine WBC (Auto) Vancomycin Trough Coronavirus (PCR) 12/03/20 12/03/20 12/04/20 17:45 23:57 00:11 WBC RBC Hgb Hct RDW Plt Count Lymph % (Auto) [place] % (Auto) Lymph # (Auto) [place] # (Auto) Baso # (Auto) Seg Neutrophils % Seg Neuts % (Manual) Lymphocytes % (Manual) Seg Neutrophils # Seg Neutrophils # Man Lymphocytes # (Manual) D-Dimer ABG pH POC ABG pCO2 POC ABG pO2 ABG pO2 ABG HCO3 ABG O2 Saturation ABG Base Excess ABG Hemoglobin ABG Oxyhemoglobin ABG Sodium ABG Potassium ABG Chloride ABG Glucose Oxyhemoglobin Carboxyhemoglobin Sodium Potassium Chloride Carbon Dioxide BUN Creatinine Glucose POC Glucose 231 H 240 H 239 H Hemoglobin A1c Lactic Acid Calcium Magnesium Ferritin Total Bilirubin AST ALT Alkaline Phosphatase Lactate Dehydrogenase Total Creatine Kinase C-Reactive Protein Total Protein Albumin Triglycerides Arterial Blood Glucose Arterial Blood Ionized Calcium Ur Specific [place] Urine WBC (Auto) Vancomycin Trough Coronavirus (PCR) 12/04/20 12/04/20 12/04/20 04:00 05:20 05:34 WBC RBC Hgb Hct RDW Plt Count Lymph % (Auto) [place] % (Auto) Lymph # (Auto) [place] # (Auto) Baso # (Auto) Seg Neutrophils % Seg Neuts % (Manual) Lymphocytes % (Manual) Seg Neutrophils # Seg Neutrophils # Man Lymphocytes # (Manual) D-Dimer ABG pH POC ABG pCO2 84.4 H POC ABG pO2 68.0 L ABG pO2 ABG HCO3 ABG O2 Saturation ABG Base Excess ABG Hemoglobin 11.6 L ABG Oxyhemoglobin ABG Sodium 130.9 L ABG Potassium ABG Chloride 90.0 L ABG Glucose 244 H Oxyhemoglobin Carboxyhemoglobin Sodium Potassium Chloride Carbon Dioxide BUN Creatinine Glucose POC Glucose 241 H 213 H Hemoglobin A1c Lactic Acid Calcium Magnesium Ferritin Total Bilirubin AST ALT Alkaline Phosphatase Lactate Dehydrogenase Total Creatine Kinase C-Reactive Protein Total Protein Albumin Triglycerides Arterial Blood Glucose 244 H Arterial Blood Ionized Calcium 4.4 L Ur Specific [place] Urine WBC (Auto) Vancomycin Trough Coronavirus (PCR) 12/04/20 12/04/20 12/04/20 11:36 16:53 23:32 WBC RBC Hgb Hct RDW Plt Count Lymph % (Auto) [place] % (Auto) Lymph # (Auto) [place] # (Auto) Baso # (Auto) Seg Neutrophils % Seg Neuts % (Manual) Lymphocytes % (Manual) Seg Neutrophils # Seg Neutrophils # Man Lymphocytes # (Manual) D-Dimer ABG pH POC ABG pCO2 POC ABG pO2 ABG pO2 ABG HCO3 ABG O2 Saturation ABG Base Excess ABG Hemoglobin ABG Oxyhemoglobin ABG Sodium ABG Potassium ABG Chloride ABG Glucose Oxyhemoglobin Carboxyhemoglobin Sodium Potassium Chloride Carbon Dioxide BUN Creatinine Glucose POC Glucose 196 H 127 H 230 H Hemoglobin A1c Lactic Acid Calcium Magnesium Ferritin Total Bilirubin AST ALT Alkaline Phosphatase Lactate Dehydrogenase Total Creatine Kinase C-Reactive Protein Total Protein Albumin Triglycerides Arterial Blood Glucose Arterial Blood Ionized Calcium Ur Specific [place] Urine WBC (Auto) Vancomycin Trough Coronavirus (PCR) 12/04/20 12/05/20 12/05/20 Unknown 04:16 05:21 WBC RBC Hgb Hct RDW Plt Count Lymph % (Auto) [place] % (Auto) Lymph # (Auto) [place] # (Auto) Baso # (Auto) Seg Neutrophils % Seg Neuts % (Manual) Lymphocytes % (Manual) Seg Neutrophils # Seg Neutrophils # Man Lymphocytes # (Manual) D-Dimer ABG pH POC ABG pCO2 86.7 H POC ABG pO2 58.0 L ABG pO2 ABG HCO3 ABG O2 Saturation ABG Base Excess ABG Hemoglobin 11.6 L ABG Oxyhemoglobin 89 L ABG Sodium 130.1 L ABG Potassium 4.9 H ABG Chloride 89.0 L ABG Glucose 254 H Oxyhemoglobin Carboxyhemoglobin Sodium 136 L Potassium Chloride 90.0 L Carbon Dioxide 46 H* BUN 24 H Creatinine 0.3 L Glucose 226 H POC Glucose 213 H Hemoglobin A1c Lactic Acid Calcium 7.6 L Magnesium Ferritin Total Bilirubin AST 46 H ALT 78 H Alkaline Phosphatase 172 H Lactate Dehydrogenase Total Creatine Kinase C-Reactive Protein Total Protein 6.0 L Albumin 2.8 L Triglycerides 156 H Arterial Blood Glucose 254 H Arterial Blood Ionized Calcium 4.4 L Ur Specific [place] Urine WBC (Auto) Vancomycin Trough Coronavirus (PCR) 12/05/20 12/05/20 12/05/20 11:22 17:26 23:38 WBC RBC Hgb Hct RDW Plt Count Lymph % (Auto) [place] % (Auto) Lymph # (Auto) [place] # (Auto) Baso # (Auto) Seg Neutrophils % Seg Neuts % (Manual) Lymphocytes % (Manual) Seg Neutrophils # Seg Neutrophils # Man Lymphocytes # (Manual) D-Dimer ABG pH POC ABG pCO2 POC ABG pO2 ABG pO2 ABG HCO3 ABG O2 Saturation ABG Base Excess ABG Hemoglobin ABG Oxyhemoglobin ABG Sodium ABG Potassium ABG Chloride ABG Glucose Oxyhemoglobin Carboxyhemoglobin Sodium Potassium Chloride Carbon Dioxide BUN Creatinine Glucose POC Glucose 212 H 157 H 204 H Hemoglobin A1c Lactic Acid Calcium Magnesium Ferritin Total Bilirubin AST ALT Alkaline Phosphatase Lactate Dehydrogenase Total Creatine Kinase C-Reactive Protein Total Protein Albumin Triglycerides Arterial Blood Glucose Arterial Blood Ionized Calcium Ur Specific [place] Urine WBC (Auto) Vancomycin Trough Coronavirus (PCR) 12/06/20 12/06/20 12/06/20 04:31 04:31 05:12 WBC 17.0 H RBC 3.63 L Hgb 10.8 L D Hct 32.6 L D RDW Plt Count Lymph % (Auto) [place] % (Auto) Lymph # (Auto) [place] # (Auto) Baso # (Auto) Seg Neutrophils % Seg Neuts % (Manual) Lymphocytes % (Manual) Seg Neutrophils # Seg Neutrophils # Man Lymphocytes # (Manual) D-Dimer ABG pH POC ABG pCO2 85.9 H POC ABG pO2 57.6 L ABG pO2 ABG HCO3 ABG O2 Saturation ABG Base Excess ABG Hemoglobin ABG Oxyhemoglobin ABG Sodium 131.2 L ABG Potassium 4.8 H ABG Chloride 86.0 L ABG Glucose 200 H Oxyhemoglobin Carboxyhemoglobin Sodium 134 L Potassium 5.1 H Chloride 88.4 L Carbon Dioxide 47 H* BUN 23 H Creatinine 0.3 L Glucose 206 H POC Glucose Hemoglobin A1c Lactic Acid Calcium 8.3 L Magnesium Ferritin Total Bilirubin AST 48 H ALT 91 H Alkaline Phosphatase 140 H Lactate Dehydrogenase Total Creatine Kinase C-Reactive Protein Total Protein 5.7 L Albumin 2.6 L Triglycerides Arterial Blood Glucose 200 H Arterial Blood Ionized Calcium 4.4 L Ur Specific [place] Urine WBC (Auto) Vancomycin Trough Coronavirus (PCR) 12/06/20 12/06/20 12/06/20 05:24 12:18 16:45 WBC RBC Hgb Hct RDW Plt Count Lymph % (Auto) [place] % (Auto) Lymph # (Auto) [place] # (Auto) Baso # (Auto) Seg Neutrophils % Seg Neuts % (Manual) Lymphocytes % (Manual) Seg Neutrophils # Seg Neutrophils # Man Lymphocytes # (Manual) D-Dimer ABG pH POC ABG pCO2 POC ABG pO2 ABG pO2 ABG HCO3 ABG O2 Saturation ABG Base Excess ABG Hemoglobin ABG Oxyhemoglobin ABG Sodium ABG Potassium ABG Chloride ABG Glucose Oxyhemoglobin Carboxyhemoglobin Sodium Potassium Chloride Carbon Dioxide BUN Creatinine Glucose POC Glucose 186 H 187 H 150 H Hemoglobin A1c Lactic Acid Calcium Magnesium Ferritin Total Bilirubin AST ALT Alkaline Phosphatase Lactate Dehydrogenase Total Creatine Kinase C-Reactive Protein Total Protein Albumin Triglycerides Arterial Blood Glucose Arterial Blood Ionized Calcium Ur Specific [place] Urine WBC (Auto) Vancomycin Trough Coronavirus (PCR) 12/06/20 12/07/20 12/07/20 23:43 05:20 05:21 WBC RBC Hgb Hct RDW Plt Count Lymph % (Auto) [place] % (Auto) Lymph # (Auto) [place] # (Auto) Baso # (Auto) Seg Neutrophils % Seg Neuts % (Manual) Lymphocytes % (Manual) Seg Neutrophils # Seg Neutrophils # Man Lymphocytes # (Manual) D-Dimer ABG pH POC ABG pCO2 POC ABG pO2 ABG pO2 48.4 L ABG HCO3 50.8 H ABG O2 Saturation 86.2 L ABG Base Excess 22.4 H ABG Hemoglobin 11.0 L ABG Oxyhemoglobin ABG Sodium ABG Potassium ABG Chloride ABG Glucose Oxyhemoglobin 84.0 L Carboxyhemoglobin Sodium Potassium Chloride Carbon Dioxide BUN Creatinine Glucose POC Glucose 153 H 107 H Hemoglobin A1c Lactic Acid Calcium Magnesium Ferritin Total Bilirubin AST ALT Alkaline Phosphatase Lactate Dehydrogenase Total Creatine Kinase C-Reactive Protein Total Protein Albumin Triglycerides Arterial Blood Glucose Arterial Blood Ionized Calcium Ur Specific [place] Urine WBC (Auto) Vancomycin Trough Coronavirus (PCR) 12/07/20 12/07/20 12/07/20 13:20 14:28 17:35 WBC RBC Hgb Hct RDW Plt Count Lymph % (Auto) [place] % (Auto) Lymph # (Auto) [place] # (Auto) Baso # (Auto) Seg Neutrophils % Seg Neuts % (Manual) Lymphocytes % (Manual) Seg Neutrophils # Seg Neutrophils # Man Lymphocytes # (Manual) D-Dimer ABG pH POC ABG pCO2 74.1 H POC ABG pO2 68.5 L ABG pO2 ABG HCO3 ABG O2 Saturation ABG Base Excess ABG Hemoglobin 10.7 L ABG Oxyhemoglobin 91.9 L ABG Sodium 132.2 L ABG Potassium 4.7 H ABG Chloride 88.0 L ABG Glucose 138 H Oxyhemoglobin Carboxyhemoglobin Sodium 134 L Potassium Chloride 87.4 L Carbon Dioxide 49 H* BUN Creatinine 0.2 L Glucose 132 H POC Glucose 176 H Hemoglobin A1c Lactic Acid Calcium 7.7 L Magnesium Ferritin Total Bilirubin AST ALT Alkaline Phosphatase Lactate Dehydrogenase Total Creatine Kinase C-Reactive Protein Total Protein Albumin Triglycerides Arterial Blood Glucose 138 H Arterial Blood Ionized Calcium 4.0 L Ur Specific [place] Urine WBC (Auto) Vancomycin Trough Coronavirus (PCR) 12/07/20 12/08/20 12/08/20 23:44 04:12 05:29 WBC RBC Hgb Hct RDW Plt Count Lymph % (Auto) [place] % (Auto) Lymph # (Auto) [place] # (Auto) Baso # (Auto) Seg Neutrophils % Seg Neuts % (Manual) Lymphocytes % (Manual) Seg Neutrophils # Seg Neutrophils # Man Lymphocytes # (Manual) D-Dimer ABG pH POC ABG pCO2 POC ABG pO2 ABG pO2 69.7 L ABG HCO3 50.1 H ABG O2 Saturation ABG Base Excess 21.6 H ABG Hemoglobin 10.9 L ABG Oxyhemoglobin ABG Sodium ABG Potassium ABG Chloride ABG Glucose Oxyhemoglobin 93.2 L Carboxyhemoglobin Sodium Potassium Chloride Carbon Dioxide BUN Creatinine Glucose POC Glucose 143 H 143 H Hemoglobin A1c Lactic Acid Calcium Magnesium Ferritin Total Bilirubin AST ALT Alkaline Phosphatase Lactate Dehydrogenase Total Creatine Kinase C-Reactive Protein Total Protein Albumin Triglycerides Arterial Blood Glucose Arterial Blood Ionized Calcium Ur Specific [place] Urine WBC (Auto) Vancomycin Trough Coronavirus (PCR) 12/08/20 12/08/20 12/09/20 06:10 06:10 04:24 WBC 12.0 H RBC 3.18 L Hgb 9.5 L Hct 28.9 L RDW Plt Count Lymph % (Auto) [place] % (Auto) Lymph # (Auto) [place] # (Auto) Baso # (Auto) Seg Neutrophils % Seg Neuts % (Manual) 95.0 H Lymphocytes % (Manual) 3.0 L Seg Neutrophils # Seg Neutrophils # Man 11.4 H Lymphocytes # (Manual) 0.4 L D-Dimer ABG pH POC ABG pCO2 76.2 H POC ABG pO2 52.8 L ABG pO2 ABG HCO3 ABG O2 Saturation ABG Base Excess ABG Hemoglobin 11.7 L ABG Oxyhemoglobin ABG Sodium 132.0 L ABG Potassium ABG Chloride 87.0 L ABG Glucose 118 H Oxyhemoglobin Carboxyhemoglobin Sodium 133 L Potassium Chloride 86.3 L Carbon Dioxide 53 H* BUN Creatinine 0.2 L Glucose 156 H POC Glucose Hemoglobin A1c Lactic Acid Calcium 7.6 L Magnesium Ferritin Total Bilirubin AST ALT Alkaline Phosphatase Lactate Dehydrogenase Total Creatine Kinase C-Reactive Protein Total Protein Albumin Triglycerides Arterial Blood Glucose 118 H Arterial Blood Ionized Calcium 4.2 L Ur Specific [place] Urine WBC (Auto) Vancomycin Trough Coronavirus (PCR) 12/09/20 12/09/20 12/09/20 05:44 06:40 06:40 WBC 13.5 H RBC 3.28 L Hgb 9.7 L Hct 29.9 L RDW Plt Count Lymph % (Auto) [place] % (Auto) Lymph # (Auto) [place] # (Auto) Baso # (Auto) Seg Neutrophils % Seg Neuts % (Manual) Lymphocytes % (Manual) Seg Neutrophils # Seg Neutrophils # Man Lymphocytes # (Manual) D-Dimer ABG pH POC ABG pCO2 POC ABG pO2 ABG pO2 ABG HCO3 ABG O2 Saturation ABG Base Excess ABG Hemoglobin ABG Oxyhemoglobin ABG Sodium ABG Potassium ABG Chloride ABG Glucose Oxyhemoglobin Carboxyhemoglobin Sodium 135 L Potassium Chloride 89.5 L Carbon Dioxide 52 H* BUN Creatinine 0.3 L Glucose 114 H POC Glucose 117 H Hemoglobin A1c Lactic Acid Calcium 7.6 L Magnesium Ferritin Total Bilirubin AST ALT Alkaline Phosphatase Lactate Dehydrogenase Total Creatine Kinase C-Reactive Protein Total Protein Albumin Triglycerides Arterial Blood Glucose Arterial Blood Ionized Calcium Ur Specific [place] Urine WBC (Auto) Vancomycin Trough Coronavirus (PCR) 12/09/20 12/09/20 12/10/20 16:42 21:11 04:28 WBC RBC Hgb Hct RDW Plt Count Lymph % (Auto) [place] % (Auto) Lymph # (Auto) [place] # (Auto) Baso # (Auto) Seg Neutrophils % Seg Neuts % (Manual) Lymphocytes % (Manual) Seg Neutrophils # Seg Neutrophils # Man Lymphocytes # (Manual) D-Dimer ABG pH POC ABG pCO2 72.5 H 69.4 H 76.9 H POC ABG pO2 50.4 L 80.6 L 60.2 L ABG pO2 ABG HCO3 ABG O2 Saturation ABG Base Excess ABG Hemoglobin 10.4 L 10.7 L 10 L ABG Oxyhemoglobin 84.3 L 89.7 L ABG Sodium 133.7 L 133.7 L 133.8 L ABG Potassium ABG Chloride 90.0 L 91.0 L 91.0 L ABG Glucose 116 H 96 H 57 L Oxyhemoglobin Carboxyhemoglobin 0.4 L Sodium Potassium Chloride Carbon Dioxide BUN Creatinine Glucose POC Glucose Hemoglobin A1c Lactic Acid Calcium Magnesium Ferritin Total Bilirubin AST ALT Alkaline Phosphatase Lactate Dehydrogenase Total Creatine Kinase C-Reactive Protein Total Protein Albumin Triglycerides Arterial Blood Glucose 116 H 96 H 57 L Arterial Blood Ionized Calcium 4.2 L 4.3 L 4.2 L Ur Specific [place] Urine WBC (Auto) Vancomycin Trough Coronavirus (PCR) 12/10/20 12/10/20 12/10/20 05:09 05:41 11:50 WBC RBC Hgb Hct RDW Plt Count Lymph % (Auto) [place] % (Auto) Lymph # (Auto) [place] # (Auto) Baso # (Auto) Seg Neutrophils % Seg Neuts % (Manual) Lymphocytes % (Manual) Seg Neutrophils # Seg Neutrophils # Man Lymphocytes # (Manual) D-Dimer ABG pH POC ABG pCO2 POC ABG pO2 ABG pO2 ABG HCO3 ABG O2 Saturation ABG Base Excess ABG Hemoglobin ABG Oxyhemoglobin ABG Sodium ABG Potassium ABG Chloride ABG Glucose Oxyhemoglobin Carboxyhemoglobin Sodium Potassium Chloride Carbon Dioxide BUN Creatinine Glucose POC Glucose 41 L 138 H 106 H Hemoglobin A1c Lactic Acid Calcium Magnesium Ferritin Total Bilirubin AST ALT Alkaline Phosphatase Lactate Dehydrogenase Total Creatine Kinase C-Reactive Protein Total Protein Albumin Triglycerides Arterial Blood Glucose Arterial Blood Ionized Calcium Ur Specific [place] Urine WBC (Auto) Vancomycin Trough Coronavirus (PCR) 12/10/20 12/10/20 12/11/20 17:34 23:25 04:06 WBC RBC Hgb Hct RDW Plt Count Lymph % (Auto) [place] % (Auto) Lymph # (Auto) [place] # (Auto) Baso # (Auto) Seg Neutrophils % Seg Neuts % (Manual) Lymphocytes % (Manual) Seg Neutrophils # Seg Neutrophils # Man Lymphocytes # (Manual) D-Dimer ABG pH POC ABG pCO2 71.0 H POC ABG pO2 56.8 L ABG pO2 ABG HCO3 ABG O2 Saturation ABG Base Excess ABG Hemoglobin 10.1 L ABG Oxyhemoglobin 88.5 L ABG Sodium 132.3 L ABG Potassium ABG Chloride 91.0 L ABG Glucose 168 H Oxyhemoglobin Carboxyhemoglobin Sodium Potassium Chloride Carbon Dioxide BUN Creatinine Glucose POC Glucose 121 H 167 H Hemoglobin A1c Lactic Acid Calcium Magnesium Ferritin Total Bilirubin AST ALT Alkaline Phosphatase Lactate Dehydrogenase Total Creatine Kinase C-Reactive Protein Total Protein Albumin Triglycerides Arterial Blood Glucose 168 H Arterial Blood Ionized Calcium 4.1 L Ur Specific [place] Urine WBC (Auto) Vancomycin Trough Coronavirus (PCR) 12/11/20 12/11/20 12/11/20 05:21 11:44 15:40 WBC RBC Hgb Hct RDW Plt Count Lymph % (Auto) [place] % (Auto) Lymph # (Auto) [place] # (Auto) Baso # (Auto) Seg Neutrophils % Seg Neuts % (Manual) Lymphocytes % (Manual) Seg Neutrophils # Seg Neutrophils # Man Lymphocytes # (Manual) D-Dimer ABG pH 7.454 H POC ABG pCO2 58.6 H POC ABG pO2 50.7 L ABG pO2 ABG HCO3 ABG O2 Saturation ABG Base Excess ABG Hemoglobin 10.1 L ABG Oxyhemoglobin 86.2 L ABG Sodium 131.2 L ABG Potassium ABG Chloride 92.0 L ABG Glucose 197 H Oxyhemoglobin Carboxyhemoglobin Sodium Potassium Chloride Carbon Dioxide BUN Creatinine Glucose POC Glucose 149 H 202 H Hemoglobin A1c Lactic Acid Calcium Magnesium Ferritin Total Bilirubin AST ALT Alkaline Phosphatase Lactate Dehydrogenase Total Creatine Kinase C-Reactive Protein Total Protein Albumin Triglycerides Arterial Blood Glucose 197 H Arterial Blood Ionized Calcium 4.2 L Ur Specific [place] Urine WBC (Auto) Vancomycin Trough Coronavirus (PCR) 12/11/20 12/11/20 12/12/20 17:09 23:16 05:09 WBC RBC Hgb Hct RDW Plt Count Lymph % (Auto) [place] % (Auto) Lymph # (Auto) [place] # (Auto) Baso # (Auto) Seg Neutrophils % Seg Neuts % (Manual) Lymphocytes % (Manual) Seg Neutrophils # Seg Neutrophils # Man Lymphocytes # (Manual) D-Dimer ABG pH POC ABG pCO2 63.1 H POC ABG pO2 62.6 L ABG pO2 ABG HCO3 ABG O2 Saturation ABG Base Excess ABG Hemoglobin 10.3 L ABG Oxyhemoglobin ABG Sodium 130.3 L ABG Potassium 4.6 H ABG Chloride 92.0 L ABG Glucose 215 H Oxyhemoglobin Carboxyhemoglobin Sodium Potassium Chloride Carbon Dioxide BUN Creatinine Glucose POC Glucose 181 H 192 H Hemoglobin A1c Lactic Acid Calcium Magnesium Ferritin Total Bilirubin AST ALT Alkaline Phosphatase Lactate Dehydrogenase Total Creatine Kinase C-Reactive Protein Total Protein Albumin Triglycerides Arterial Blood Glucose 215 H Arterial Blood Ionized Calcium 4.4 L Ur Specific [place] Urine WBC (Auto) Vancomycin Trough Coronavirus (PCR) 12/12/20 12/12/20 12/12/20 05:16 05:47 11:41 WBC RBC Hgb Hct RDW Plt Count Lymph % (Auto) [place] % (Auto) Lymph # (Auto) [place] # (Auto) Baso # (Auto) Seg Neutrophils % Seg Neuts % (Manual) Lymphocytes % (Manual) Seg Neutrophils # Seg Neutrophils # Man Lymphocytes # (Manual) D-Dimer ABG pH POC ABG pCO2 POC ABG pO2 ABG pO2 ABG HCO3 ABG O2 Saturation ABG Base Excess ABG Hemoglobin ABG Oxyhemoglobin ABG Sodium ABG Potassium ABG Chloride ABG Glucose Oxyhemoglobin Carboxyhemoglobin Sodium Potassium Chloride Carbon Dioxide BUN Creatinine Glucose POC Glucose 208 H 218 H Hemoglobin A1c Lactic Acid Calcium Magnesium Ferritin Total Bilirubin AST ALT Alkaline Phosphatase Lactate Dehydrogenase Total Creatine Kinase C-Reactive Protein Total Protein Albumin Triglycerides 150 H Arterial Blood Glucose Arterial Blood Ionized Calcium Ur Specific [place] Urine WBC (Auto) Vancomycin Trough Coronavirus (PCR) 12/12/20 12/12/20 12/13/20 17:05 23:18 03:36 WBC RBC Hgb Hct RDW Plt Count Lymph % (Auto) [place] % (Auto) Lymph # (Auto) [place] # (Auto) Baso # (Auto) Seg Neutrophils % Seg Neuts % (Manual) Lymphocytes % (Manual) Seg Neutrophils # Seg Neutrophils # Man Lymphocytes # (Manual) D-Dimer ABG pH POC ABG pCO2 61.5 H POC ABG pO2 77.6 L ABG pO2 ABG HCO3 ABG O2 Saturation ABG Base Excess ABG Hemoglobin 10.2 L ABG Oxyhemoglobin ABG Sodium 127.5 L ABG Potassium ABG Chloride 91.0 L ABG Glucose 232 H Oxyhemoglobin Carboxyhemoglobin Sodium Potassium Chloride Carbon Dioxide BUN Creatinine Glucose POC Glucose 187 H 176 H Hemoglobin A1c Lactic Acid Calcium Magnesium Ferritin Total Bilirubin AST ALT Alkaline Phosphatase Lactate Dehydrogenase Total Creatine Kinase C-Reactive Protein Total Protein Albumin Triglycerides Arterial Blood Glucose 232 H Arterial Blood Ionized Calcium 4.2 L Ur Specific [place] Urine WBC (Auto) Vancomycin Trough Coronavirus (PCR) 12/13/20 12/13/20 12/13/20 05:13 10:00 11:30 WBC RBC 3.50 L Hgb 10.5 L Hct 31.9 L RDW Plt Count Lymph % (Auto) [place] % (Auto) Lymph # (Auto) [place] # (Auto) Baso # (Auto) Seg Neutrophils % Seg Neuts % (Manual) 96.0 H Lymphocytes % (Manual) Seg Neutrophils # Seg Neutrophils # Man 9.2 H Lymphocytes # (Manual) 0.0 L D-Dimer ABG pH POC ABG pCO2 POC ABG pO2 ABG pO2 ABG HCO3 ABG O2 Saturation ABG Base Excess ABG Hemoglobin ABG Oxyhemoglobin ABG Sodium ABG Potassium ABG Chloride ABG Glucose Oxyhemoglobin Carboxyhemoglobin Sodium Potassium Chloride Carbon Dioxide BUN Creatinine Glucose POC Glucose 204 H Hemoglobin A1c Lactic Acid Calcium Magnesium Ferritin Total Bilirubin AST ALT Alkaline Phosphatase Lactate Dehydrogenase Total Creatine Kinase C-Reactive Protein Total Protein Albumin Triglycerides Arterial Blood Glucose Arterial Blood Ionized Calcium Ur Specific [place] Urine WBC (Auto) Vancomycin Trough Coronavirus (PCR) Positive A 12/13/20 12/13/20 12/13/20 11:30 12:01 18:04 WBC RBC Hgb Hct RDW Plt Count Lymph % (Auto) [place] % (Auto) Lymph # (Auto) [place] # (Auto) Baso # (Auto) Seg Neutrophils % Seg Neuts % (Manual) Lymphocytes % (Manual) Seg Neutrophils # Seg Neutrophils # Man Lymphocytes # (Manual) D-Dimer ABG pH POC ABG pCO2 POC ABG pO2 ABG pO2 ABG HCO3 ABG O2 Saturation ABG Base Excess ABG Hemoglobin ABG Oxyhemoglobin ABG Sodium ABG Potassium ABG Chloride ABG Glucose Oxyhemoglobin Carboxyhemoglobin Sodium 132 L Potassium Chloride 90.1 L Carbon Dioxide 41 H* D BUN Creatinine 0.2 L Glucose 249 H POC Glucose 224 H 172 H Hemoglobin A1c Lactic Acid Calcium 7.4 L Magnesium Ferritin Total Bilirubin AST ALT 61 H Alkaline Phosphatase Lactate Dehydrogenase Total Creatine Kinase C-Reactive Protein Total Protein 5.7 L Albumin 2.3 L Triglycerides Arterial Blood Glucose Arterial Blood Ionized Calcium Ur Specific [place] Urine WBC (Auto) Vancomycin Trough Coronavirus (PCR) 12/13/20 12/14/20 12/14/20 23:37 04:05 04:35 WBC RBC 3.37 L Hgb 10.1 L Hct 30.7 L RDW 15.4 H Plt Count Lymph % (Auto) [place] % (Auto) Lymph # (Auto) [place] # (Auto) Baso # (Auto) Seg Neutrophils % Seg Neuts % (Manual) 93.0 H Lymphocytes % (Manual) 3.0 L Seg Neutrophils # Seg Neutrophils # Man 7.8 H Lymphocytes # (Manual) 0.3 L D-Dimer ABG pH POC ABG pCO2 72.2 H POC ABG pO2 61.5 L ABG pO2 ABG HCO3 ABG O2 Saturation ABG Base Excess ABG Hemoglobin ABG Oxyhemoglobin 89.9 L ABG Sodium 131.4 L ABG Potassium ABG Chloride 91.0 L ABG Glucose 205 H Oxyhemoglobin Carboxyhemoglobin Sodium Potassium Chloride Carbon Dioxide BUN Creatinine Glucose POC Glucose 200 H Hemoglobin A1c Lactic Acid Calcium Magnesium Ferritin Total Bilirubin AST ALT Alkaline Phosphatase Lactate Dehydrogenase Total Creatine Kinase C-Reactive Protein Total Protein Albumin Triglycerides Arterial Blood Glucose 205 H Arterial Blood Ionized Calcium 4.3 L Ur Specific [place] Urine WBC (Auto) Vancomycin Trough Coronavirus (PCR) 12/14/20 12/14/20 12/14/20 04:35 05:12 11:31 WBC RBC Hgb Hct RDW Plt Count Lymph % (Auto) [place] % (Auto) Lymph # (Auto) [place] # (Auto) Baso # (Auto) Seg Neutrophils % Seg Neuts % (Manual) Lymphocytes % (Manual) Seg Neutrophils # Seg Neutrophils # Man Lymphocytes # (Manual) D-Dimer ABG pH POC ABG pCO2 POC ABG pO2 ABG pO2 ABG HCO3 ABG O2 Saturation ABG Base Excess ABG Hemoglobin ABG Oxyhemoglobin ABG Sodium ABG Potassium ABG Chloride ABG Glucose Oxyhemoglobin Carboxyhemoglobin Sodium 135 L Potassium Chloride 92.5 L Carbon Dioxide 38 H BUN Creatinine 0.2 L Glucose 184 H POC Glucose 176 H 212 H Hemoglobin A1c Lactic Acid Calcium 7.7 L Magnesium Ferritin Total Bilirubin AST ALT Alkaline Phosphatase Lactate Dehydrogenase Total Creatine Kinase C-Reactive Protein Total Protein Albumin Triglycerides Arterial Blood Glucose Arterial Blood Ionized Calcium Ur Specific [place] Urine WBC (Auto) Vancomycin Trough Coronavirus (PCR) 12/14/20 12/14/20 12/15/20 17:30 23:30 03:19 WBC RBC Hgb Hct RDW Plt Count Lymph % (Auto) [place] % (Auto) Lymph # (Auto) [place] # (Auto) Baso # (Auto) Seg Neutrophils % Seg Neuts % (Manual) Lymphocytes % (Manual) Seg Neutrophils # Seg Neutrophils # Man Lymphocytes # (Manual) D-Dimer ABG pH POC ABG pCO2 62.0 H POC ABG pO2 66.0 L ABG pO2 ABG HCO3 ABG O2 Saturation ABG Base Excess ABG Hemoglobin 10.3 L ABG Oxyhemoglobin ABG Sodium 130.5 L ABG Potassium ABG Chloride 91.0 L ABG Glucose 166 H Oxyhemoglobin Carboxyhemoglobin Sodium Potassium Chloride Carbon Dioxide BUN Creatinine Glucose POC Glucose 222 H 176 H Hemoglobin A1c Lactic Acid Calcium Magnesium Ferritin Total Bilirubin AST ALT Alkaline Phosphatase Lactate Dehydrogenase Total Creatine Kinase C-Reactive Protein Total Protein Albumin Triglycerides Arterial Blood Glucose 166 H Arterial Blood Ionized Calcium 4.4 L Ur Specific [place] Urine WBC (Auto) Vancomycin Trough Coronavirus (PCR) 12/15/20 12/15/20 12/15/20 05:24 11:39 17:30 WBC RBC Hgb Hct RDW Plt Count Lymph % (Auto) [place] % (Auto) Lymph # (Auto) [place] # (Auto) Baso # (Auto) Seg Neutrophils % Seg Neuts % (Manual) Lymphocytes % (Manual) Seg Neutrophils # Seg Neutrophils # Man Lymphocytes # (Manual) D-Dimer ABG pH POC ABG pCO2 POC ABG pO2 ABG pO2 ABG HCO3 ABG O2 Saturation ABG Base Excess ABG Hemoglobin ABG Oxyhemoglobin ABG Sodium ABG Potassium ABG Chloride ABG Glucose Oxyhemoglobin Carboxyhemoglobin Sodium Potassium Chloride Carbon Dioxide BUN Creatinine Glucose POC Glucose 160 H 140 H 246 H Hemoglobin A1c Lactic Acid Calcium Magnesium Ferritin Total Bilirubin AST ALT Alkaline Phosphatase Lactate Dehydrogenase Total Creatine Kinase C-Reactive Protein Total Protein Albumin Triglycerides Arterial Blood Glucose Arterial Blood Ionized Calcium Ur Specific [place] Urine WBC (Auto) Vancomycin Trough Coronavirus (PCR) 12/15/20 12/16/20 12/16/20 23:42 03:54 04:46 WBC RBC 3.48 L Hgb 10.6 L Hct 31.5 L RDW 15.8 H Plt Count Lymph % (Auto) [place] % (Auto) Lymph # (Auto) [place] # (Auto) Baso # (Auto) Seg Neutrophils % Seg Neuts % (Manual) Lymphocytes % (Manual) Seg Neutrophils # Seg Neutrophils # Man Lymphocytes # (Manual) D-Dimer ABG pH POC ABG pCO2 63.6 H POC ABG pO2 55.0 L ABG pO2 ABG HCO3 ABG O2 Saturation ABG Base Excess ABG Hemoglobin 11.1 L ABG Oxyhemoglobin 87.3 L ABG Sodium 130.7 L ABG Potassium ABG Chloride 89.0 L ABG Glucose 211 H Oxyhemoglobin Carboxyhemoglobin Sodium Potassium Chloride Carbon Dioxide BUN Creatinine Glucose POC Glucose 139 H Hemoglobin A1c Lactic Acid Calcium Magnesium Ferritin Total Bilirubin AST ALT Alkaline Phosphatase Lactate Dehydrogenase Total Creatine Kinase C-Reactive Protein Total Protein Albumin Triglycerides Arterial Blood Glucose 211 H Arterial Blood Ionized Calcium 4.3 L Ur Specific [place] Urine WBC (Auto) Vancomycin Trough Coronavirus (PCR) 12/16/20 12/16/20 12/16/20 04:46 05:34 11:40 WBC RBC Hgb Hct RDW Plt Count Lymph % (Auto) [place] % (Auto) Lymph # (Auto) [place] # (Auto) Baso # (Auto) Seg Neutrophils % Seg Neuts % (Manual) Lymphocytes % (Manual) Seg Neutrophils # Seg Neutrophils # Man Lymphocytes # (Manual) D-Dimer ABG pH POC ABG pCO2 POC ABG pO2 ABG pO2 ABG HCO3 ABG O2 Saturation ABG Base Excess ABG Hemoglobin ABG Oxyhemoglobin ABG Sodium ABG Potassium ABG Chloride ABG Glucose Oxyhemoglobin Carboxyhemoglobin Sodium 134 L Potassium Chloride 89.7 L Carbon Dioxide 38 H BUN Creatinine < 0.2 L Glucose 203 H POC Glucose 155 H 239 H Hemoglobin A1c Lactic Acid Calcium 7.5 L Magnesium Ferritin Total Bilirubin AST ALT Alkaline Phosphatase Lactate Dehydrogenase Total Creatine Kinase C-Reactive Protein Total Protein Albumin Triglycerides Arterial Blood Glucose Arterial Blood Ionized Calcium Ur Specific [place] Urine WBC (Auto) Vancomycin Trough Coronavirus (PCR) 12/16/20 12/16/20 12/17/20 17:42 23:45 03:59 WBC RBC Hgb Hct RDW Plt Count Lymph % (Auto) [place] % (Auto) Lymph # (Auto) [place] # (Auto) Baso # (Auto) Seg Neutrophils % Seg Neuts % (Manual) Lymphocytes % (Manual) Seg Neutrophils # Seg Neutrophils # Man Lymphocytes # (Manual) D-Dimer ABG pH POC ABG pCO2 71.9 H POC ABG pO2 57.5 L ABG pO2 ABG HCO3 ABG O2 Saturation ABG Base Excess ABG Hemoglobin 10.8 L ABG Oxyhemoglobin 87.7 L ABG Sodium 131.5 L ABG Potassium ABG Chloride 90.0 L ABG Glucose 199 H Oxyhemoglobin Carboxyhemoglobin Sodium Potassium Chloride Carbon Dioxide BUN Creatinine Glucose POC Glucose 228 H 187 H Hemoglobin A1c Lactic Acid Calcium Magnesium Ferritin Total Bilirubin AST ALT Alkaline Phosphatase Lactate Dehydrogenase Total Creatine Kinase C-Reactive Protein Total Protein Albumin Triglycerides Arterial Blood Glucose 199 H Arterial Blood Ionized Calcium 4.4 L Ur Specific [place] Urine WBC (Auto) Vancomycin Trough Coronavirus (PCR) 12/17/20 12/17/20 12/17/20 05:35 11:55 17:25 WBC RBC Hgb Hct RDW Plt Count Lymph % (Auto) [place] % (Auto) Lymph # (Auto) [place] # (Auto) Baso # (Auto) Seg Neutrophils % Seg Neuts % (Manual) Lymphocytes % (Manual) Seg Neutrophils # Seg Neutrophils # Man Lymphocytes # (Manual) D-Dimer ABG pH POC ABG pCO2 POC ABG pO2 ABG pO2 ABG HCO3 ABG O2 Saturation ABG Base Excess ABG Hemoglobin ABG Oxyhemoglobin ABG Sodium ABG Potassium ABG Chloride ABG Glucose Oxyhemoglobin Carboxyhemoglobin Sodium 134 L Potassium Chloride 89.6 L Carbon Dioxide 44 H* BUN Creatinine 0.2 L Glucose 280 H POC Glucose 159 H 181 H Hemoglobin A1c Lactic Acid Calcium 8.0 L Magnesium 1.60 L Ferritin Total Bilirubin AST ALT Alkaline Phosphatase Lactate Dehydrogenase Total Creatine Kinase C-Reactive Protein Total Protein 6.2 L Albumin 2.1 L Triglycerides Arterial Blood Glucose Arterial Blood Ionized Calcium Ur Specific [place] Urine WBC (Auto) Vancomycin Trough Coronavirus (PCR) 12/17/20 12/17/20 12/18/20 17:25 17:51 00:12 WBC RBC Hgb Hct RDW Plt Count Lymph % (Auto) [place] % (Auto) Lymph # (Auto) [place] # (Auto) Baso # (Auto) Seg Neutrophils % Seg Neuts % (Manual) Lymphocytes % (Manual) Seg Neutrophils # Seg Neutrophils # Man Lymphocytes # (Manual) D-Dimer ABG pH POC ABG pCO2 POC ABG pO2 ABG pO2 ABG HCO3 ABG O2 Saturation ABG Base Excess ABG Hemoglobin ABG Oxyhemoglobin ABG Sodium ABG Potassium ABG Chloride ABG Glucose Oxyhemoglobin Carboxyhemoglobin Sodium Potassium Chloride Carbon Dioxide BUN Creatinine Glucose POC Glucose 260 H 197 H Hemoglobin A1c Lactic Acid Calcium Magnesium Ferritin Total Bilirubin AST ALT Alkaline Phosphatase Lactate Dehydrogenase Total Creatine Kinase 47 L C-Reactive Protein Total Protein Albumin Triglycerides Arterial Blood Glucose Arterial Blood Ionized Calcium Ur Specific [place] Urine WBC (Auto) Vancomycin Trough Coronavirus (PCR) 12/18/20 12/18/20 12/18/20 03:56 04:32 04:32 WBC RBC 2.88 L Hgb 8.6 L Hct 26.0 L RDW 15.6 H Plt Count Lymph % (Auto) [place] % (Auto) Lymph # (Auto) [place] # (Auto) Baso # (Auto) Seg Neutrophils % Seg Neuts % (Manual) Lymphocytes % (Manual) Seg Neutrophils # Seg Neutrophils # Man Lymphocytes # (Manual) D-Dimer ABG pH POC ABG pCO2 78.0 H POC ABG pO2 52.3 L ABG pO2 ABG HCO3 ABG O2 Saturation ABG Base Excess ABG Hemoglobin 11.7 L ABG Oxyhemoglobin 84.9 L ABG Sodium 131.6 L ABG Potassium ABG Chloride 89.0 L ABG Glucose 191 H Oxyhemoglobin Carboxyhemoglobin Sodium 134 L Potassium Chloride 89.5 L Carbon Dioxide 43 H* BUN Creatinine < 0.2 L Glucose 182 H POC Glucose Hemoglobin A1c Lactic Acid Calcium 8.1 L Magnesium Ferritin Total Bilirubin AST ALT Alkaline Phosphatase Lactate Dehydrogenase Total Creatine Kinase C-Reactive Protein Total Protein Albumin Triglycerides Arterial Blood Glucose 191 H Arterial Blood Ionized Calcium 4.4 L Ur Specific [place] Urine WBC (Auto) Vancomycin Trough Coronavirus (PCR) 12/18/20 12/18/20 12/18/20 05:19 08:27 11:37 WBC RBC Hgb Hct RDW Plt Count Lymph % (Auto) [place] % (Auto) Lymph # (Auto) [place] # (Auto) Baso # (Auto) Seg Neutrophils % Seg Neuts % (Manual) Lymphocytes % (Manual) Seg Neutrophils # Seg Neutrophils # Man Lymphocytes # (Manual) D-Dimer ABG pH POC ABG pCO2 POC ABG pO2 ABG pO2 ABG HCO3 ABG O2 Saturation ABG Base Excess ABG Hemoglobin ABG Oxyhemoglobin ABG Sodium ABG Potassium ABG Chloride ABG Glucose Oxyhemoglobin Carboxyhemoglobin Sodium 131 L Potassium Chloride 89.0 L Carbon Dioxide 41 H* BUN Creatinine < 0.2 L Glucose 176 H POC Glucose 165 H 174 H Hemoglobin A1c Lactic Acid Calcium 7.5 L Magnesium Ferritin Total Bilirubin AST ALT Alkaline Phosphatase Lactate Dehydrogenase Total Creatine Kinase C-Reactive Protein Total Protein Albumin Triglycerides Arterial Blood Glucose Arterial Blood Ionized Calcium Ur Specific [place] Urine WBC (Auto) Vancomycin Trough Coronavirus (PCR) 12/18/20 12/18/20 12/19/20 17:26 23:19 03:41 WBC RBC Hgb Hct RDW Plt Count Lymph % (Auto) [place] % (Auto) Lymph # (Auto) [place] # (Auto) Baso # (Auto) Seg Neutrophils % Seg Neuts % (Manual) Lymphocytes % (Manual) Seg Neutrophils # Seg Neutrophils # Man Lymphocytes # (Manual) D-Dimer ABG pH POC ABG pCO2 75.4 H POC ABG pO2 50.7 L ABG pO2 ABG HCO3 ABG O2 Saturation ABG Base Excess ABG Hemoglobin 10.4 L ABG Oxyhemoglobin 84.2 L ABG Sodium 131.1 L ABG Potassium ABG Chloride 89.0 L ABG Glucose 194 H Oxyhemoglobin Carboxyhemoglobin 1.6 H Sodium Potassium Chloride Carbon Dioxide BUN Creatinine Glucose POC Glucose 243 H 212 H Hemoglobin A1c Lactic Acid Calcium Magnesium Ferritin Total Bilirubin AST ALT Alkaline Phosphatase Lactate Dehydrogenase Total Creatine Kinase C-Reactive Protein Total Protein Albumin Triglycerides Arterial Blood Glucose 194 H Arterial Blood Ionized Calcium 4.3 L Ur Specific [place] Urine WBC (Auto) Vancomycin Trough Coronavirus (PCR) 12/19/20 12/19/20 12/19/20 05:26 11:56 18:17 WBC RBC Hgb Hct RDW Plt Count Lymph % (Auto) [place] % (Auto) Lymph # (Auto) [place] # (Auto) Baso # (Auto) Seg Neutrophils % Seg Neuts % (Manual) Lymphocytes % (Manual) Seg Neutrophils # Seg Neutrophils # Man Lymphocytes # (Manual) D-Dimer ABG pH POC ABG pCO2 POC ABG pO2 ABG pO2 ABG HCO3 ABG O2 Saturation ABG Base Excess ABG Hemoglobin ABG Oxyhemoglobin ABG Sodium ABG Potassium ABG Chloride ABG Glucose Oxyhemoglobin Carboxyhemoglobin Sodium Potassium Chloride Carbon Dioxide BUN Creatinine Glucose POC Glucose 166 H 173 H 212 H Hemoglobin A1c Lactic Acid Calcium Magnesium Ferritin Total Bilirubin AST ALT Alkaline Phosphatase Lactate Dehydrogenase Total Creatine Kinase C-Reactive Protein Total Protein Albumin Triglycerides Arterial Blood Glucose Arterial Blood Ionized Calcium Ur Specific [place] Urine WBC (Auto) Vancomycin Trough Coronavirus (PCR) 12/19/20 12/19/20 12/20/20 23:39 Unknown 03:26 WBC RBC Hgb Hct RDW Plt Count Lymph % (Auto) [place] % (Auto) Lymph # (Auto) [place] # (Auto) Baso # (Auto) Seg Neutrophils % Seg Neuts % (Manual) Lymphocytes % (Manual) Seg Neutrophils # Seg Neutrophils # Man Lymphocytes # (Manual) D-Dimer ABG pH POC ABG pCO2 74.2 H POC ABG pO2 51.3 L ABG pO2 ABG HCO3 ABG O2 Saturation ABG Base Excess ABG Hemoglobin 10.0 L ABG Oxyhemoglobin ABG Sodium 128.9 L ABG Potassium ABG Chloride 87.0 L ABG Glucose 173 H Oxyhemoglobin Carboxyhemoglobin Sodium 133 L Potassium Chloride 89.9 L Carbon Dioxide 39 H BUN Creatinine 0.2 L Glucose 197 H POC Glucose 133 H Hemoglobin A1c Lactic Acid Calcium 7.6 L Magnesium Ferritin Total Bilirubin AST ALT Alkaline Phosphatase Lactate Dehydrogenase Total Creatine Kinase C-Reactive Protein Total Protein Albumin Triglycerides Arterial Blood Glucose 173 H Arterial Blood Ionized Calcium 4.1 L Ur Specific [place] Urine WBC (Auto) Vancomycin Trough Coronavirus (PCR) 12/20/20 12/20/20 12/20/20 04:00 04:00 05:05 WBC RBC 3.21 L Hgb 9.6 L Hct 29.2 L RDW 15.8 H Plt Count Lymph % (Auto) [place] % (Auto) Lymph # (Auto) [place] # (Auto) Baso # (Auto) Seg Neutrophils % Seg Neuts % (Manual) Lymphocytes % (Manual) Seg Neutrophils # Seg Neutrophils # Man Lymphocytes # (Manual) D-Dimer ABG pH POC ABG pCO2 POC ABG pO2 ABG pO2 ABG HCO3 ABG O2 Saturation ABG Base Excess ABG Hemoglobin ABG Oxyhemoglobin ABG Sodium ABG Potassium ABG Chloride ABG Glucose Oxyhemoglobin Carboxyhemoglobin Sodium 132 L Potassium Chloride 86.0 L Carbon Dioxide 43 H* BUN Creatinine 0.2 L Glucose 193 H POC Glucose 171 H Hemoglobin A1c Lactic Acid Calcium 7.6 L Magnesium Ferritin Total Bilirubin AST ALT Alkaline Phosphatase Lactate Dehydrogenase Total Creatine Kinase C-Reactive Protein Total Protein Albumin Triglycerides Arterial Blood Glucose Arterial Blood Ionized Calcium Ur Specific [place] Urine WBC (Auto) Vancomycin Trough Coronavirus (PCR) 12/20/20 12/20/20 12/20/20 11:47 18:18 23:41 WBC RBC Hgb Hct RDW Plt Count Lymph % (Auto) [place] % (Auto) Lymph # (Auto) [place] # (Auto) Baso # (Auto) Seg Neutrophils % Seg Neuts % (Manual) Lymphocytes % (Manual) Seg Neutrophils # Seg Neutrophils # Man Lymphocytes # (Manual) D-Dimer ABG pH POC ABG pCO2 POC ABG pO2 ABG pO2 ABG HCO3 ABG O2 Saturation ABG Base Excess ABG Hemoglobin ABG Oxyhemoglobin ABG Sodium ABG Potassium ABG Chloride ABG Glucose Oxyhemoglobin Carboxyhemoglobin Sodium Potassium Chloride Carbon Dioxide BUN Creatinine Glucose POC Glucose 238 H 205 H 167 H Hemoglobin A1c Lactic Acid Calcium Magnesium Ferritin Total Bilirubin AST ALT Alkaline Phosphatase Lactate Dehydrogenase Total Creatine Kinase C-Reactive Protein Total Protein Albumin Triglycerides Arterial Blood Glucose Arterial Blood Ionized Calcium Ur Specific [place] Urine WBC (Auto) Vancomycin Trough Coronavirus (PCR) 12/21/20 12/21/20 12/21/20 03:30 05:37 09:57 WBC RBC Hgb Hct RDW Plt Count Lymph % (Auto) [place] % (Auto) Lymph # (Auto) [place] # (Auto) Baso # (Auto) Seg Neutrophils % Seg Neuts % (Manual) Lymphocytes % (Manual) Seg Neutrophils # Seg Neutrophils # Man Lymphocytes # (Manual) D-Dimer ABG pH POC ABG pCO2 73.4 H POC ABG pO2 63.0 L ABG pO2 ABG HCO3 ABG O2 Saturation ABG Base Excess ABG Hemoglobin 10.1 L ABG Oxyhemoglobin ABG Sodium 130.5 L ABG Potassium ABG Chloride 89.0 L ABG Glucose 171 H Oxyhemoglobin Carboxyhemoglobin Sodium 132 L Potassium Chloride 87.7 L Carbon Dioxide 42 H* BUN Creatinine 0.2 L Glucose 207 H POC Glucose 152 H Hemoglobin A1c Lactic Acid Calcium 7.7 L Magnesium Ferritin Total Bilirubin AST ALT Alkaline Phosphatase Lactate Dehydrogenase Total Creatine Kinase C-Reactive Protein Total Protein Albumin Triglycerides Arterial Blood Glucose 171 H Arterial Blood Ionized Calcium 4.2 L Ur Specific [place] Urine WBC (Auto) Vancomycin Trough Coronavirus (PCR) 12/21/20 12/21/20 12/21/20 12:54 18:00 Unknown WBC RBC Hgb Hct RDW Plt Count Lymph % (Auto) [place] % (Auto) Lymph # (Auto) [place] # (Auto) Baso # (Auto) Seg Neutrophils % Seg Neuts % (Manual) Lymphocytes % (Manual) Seg Neutrophils # Seg Neutrophils # Man Lymphocytes # (Manual) D-Dimer ABG pH POC ABG pCO2 POC ABG pO2 ABG pO2 ABG HCO3 ABG O2 Saturation ABG Base Excess ABG Hemoglobin ABG Oxyhemoglobin ABG Sodium ABG Potassium ABG Chloride ABG Glucose Oxyhemoglobin Carboxyhemoglobin Sodium Potassium Chloride Carbon Dioxide BUN Creatinine Glucose POC Glucose 199 H 217 H Hemoglobin A1c Lactic Acid Calcium Magnesium Ferritin Total Bilirubin AST ALT Alkaline Phosphatase Lactate Dehydrogenase Total Creatine Kinase C-Reactive Protein Total Protein Albumin Triglycerides Arterial Blood Glucose Arterial Blood Ionized Calcium Ur Specific [place] Urine WBC (Auto) 172.0 H Vancomycin Trough Coronavirus (PCR) 12/22/20 12/22/20 12/22/20 00:02 04:08 05:19 WBC RBC Hgb Hct RDW Plt Count Lymph % (Auto) [place] % (Auto) Lymph # (Auto) [place] # (Auto) Baso # (Auto) Seg Neutrophils % Seg Neuts % (Manual) Lymphocytes % (Manual) Seg Neutrophils # Seg Neutrophils # Man Lymphocytes # (Manual) D-Dimer ABG pH POC ABG pCO2 67.6 H POC ABG pO2 57.3 L ABG pO2 ABG HCO3 ABG O2 Saturation ABG Base Excess ABG Hemoglobin ABG Oxyhemoglobin ABG Sodium 130.9 L ABG Potassium ABG Chloride 92.0 L ABG Glucose 163 H Oxyhemoglobin Carboxyhemoglobin Sodium Potassium Chloride Carbon Dioxide BUN Creatinine Glucose POC Glucose 172 H 151 H Hemoglobin A1c Lactic Acid Calcium Magnesium Ferritin Total Bilirubin AST ALT Alkaline Phosphatase Lactate Dehydrogenase Total Creatine Kinase C-Reactive Protein Total Protein Albumin Triglycerides Arterial Blood Glucose 163 H Arterial Blood Ionized Calcium 4.2 L Ur Specific [place] Urine WBC (Auto) Vancomycin Trough Coronavirus (PCR) 12/22/20 12/22/20 12/22/20 11:33 17:20 23:25 WBC RBC Hgb Hct RDW Plt Count Lymph % (Auto) [place] % (Auto) Lymph # (Auto) [place] # (Auto) Baso # (Auto) Seg Neutrophils % Seg Neuts % (Manual) Lymphocytes % (Manual) Seg Neutrophils # Seg Neutrophils # Man Lymphocytes # (Manual) D-Dimer ABG pH POC ABG pCO2 POC ABG pO2 ABG pO2 ABG HCO3 ABG O2 Saturation ABG Base Excess ABG Hemoglobin ABG Oxyhemoglobin ABG Sodium ABG Potassium ABG Chloride ABG Glucose Oxyhemoglobin Carboxyhemoglobin Sodium Potassium Chloride Carbon Dioxide BUN Creatinine Glucose POC Glucose 181 H 166 H 121 H Hemoglobin A1c Lactic Acid Calcium Magnesium Ferritin Total Bilirubin AST ALT Alkaline Phosphatase Lactate Dehydrogenase Total Creatine Kinase C-Reactive Protein Total Protein Albumin Triglycerides Arterial Blood Glucose Arterial Blood Ionized Calcium Ur Specific [place] Urine WBC (Auto) Vancomycin Trough Coronavirus (PCR) 12/23/20 12/23/20 12/23/20 05:19 05:32 06:07 WBC RBC Hgb Hct RDW Plt Count Lymph % (Auto) [place] % (Auto) Lymph # (Auto) [place] # (Auto) Baso # (Auto) Seg Neutrophils % Seg Neuts % (Manual) Lymphocytes % (Manual) Seg Neutrophils # Seg Neutrophils # Man Lymphocytes # (Manual) D-Dimer ABG pH POC ABG pCO2 67.7 H POC ABG pO2 53.7 L ABG pO2 ABG HCO3 ABG O2 Saturation ABG Base Excess ABG Hemoglobin 9.6 L ABG Oxyhemoglobin ABG Sodium 130.2 L ABG Potassium ABG Chloride 88.0 L ABG Glucose 195 H Oxyhemoglobin Carboxyhemoglobin Sodium 135 L Potassium Chloride 89.3 L Carbon Dioxide 43 H* BUN Creatinine 0.2 L Glucose 193 H POC Glucose 167 H Hemoglobin A1c Lactic Acid Calcium 7.4 L Magnesium Ferritin Total Bilirubin AST ALT Alkaline Phosphatase Lactate Dehydrogenase Total Creatine Kinase C-Reactive Protein Total Protein Albumin Triglycerides Arterial Blood Glucose 195 H Arterial Blood Ionized Calcium 4.1 L Ur Specific [place] Urine WBC (Auto) Vancomycin Trough Coronavirus (PCR) 12/23/20 12/23/20 12/23/20 11:21 18:10 23:21 WBC RBC Hgb Hct RDW Plt Count Lymph % (Auto) [place] % (Auto) Lymph # (Auto) [place] # (Auto) Baso # (Auto) Seg Neutrophils % Seg Neuts % (Manual) Lymphocytes % (Manual) Seg Neutrophils # Seg Neutrophils # Man Lymphocytes # (Manual) D-Dimer ABG pH POC ABG pCO2 POC ABG pO2 ABG pO2 ABG HCO3 ABG O2 Saturation ABG Base Excess ABG Hemoglobin ABG Oxyhemoglobin ABG Sodium ABG Potassium ABG Chloride ABG Glucose Oxyhemoglobin Carboxyhemoglobin Sodium Potassium Chloride Carbon Dioxide BUN Creatinine Glucose POC Glucose 155 H 178 H 126 H Hemoglobin A1c Lactic Acid Calcium Magnesium Ferritin Total Bilirubin AST ALT Alkaline Phosphatase Lactate Dehydrogenase Total Creatine Kinase C-Reactive Protein Total Protein Albumin Triglycerides Arterial Blood Glucose Arterial Blood Ionized Calcium Ur Specific [place] Urine WBC (Auto) Vancomycin Trough Coronavirus (PCR) 12/24/20 12/24/20 12/24/20 04:49 05:00 05:19 WBC RBC Hgb Hct RDW Plt Count Lymph % (Auto) [place] % (Auto) Lymph # (Auto) [place] # (Auto) Baso # (Auto) Seg Neutrophils % Seg Neuts % (Manual) Lymphocytes % (Manual) Seg Neutrophils # Seg Neutrophils # Man Lymphocytes # (Manual) D-Dimer ABG pH POC ABG pCO2 75.5 H POC ABG pO2 50.5 L ABG pO2 ABG HCO3 ABG O2 Saturation ABG Base Excess ABG Hemoglobin 8.8 L ABG Oxyhemoglobin 86.3 L ABG Sodium 131.6 L ABG Potassium ABG Chloride 88.0 L ABG Glucose 186 H Oxyhemoglobin Carboxyhemoglobin 2.1 H Sodium Potassium Chloride Carbon Dioxide BUN Creatinine Glucose POC Glucose 162 H Hemoglobin A1c Lactic Acid Calcium Magnesium Ferritin Total Bilirubin AST ALT Alkaline Phosphatase Lactate Dehydrogenase Total Creatine Kinase C-Reactive Protein Total Protein Albumin Triglycerides 486 H Arterial Blood Glucose 186 H Arterial Blood Ionized Calcium 4.0 L Ur Specific [place] Urine WBC (Auto) Vancomycin Trough Coronavirus (PCR) 12/24/20 12/24/20 12/24/20 11:57 16:44 17:28 WBC RBC Hgb Hct RDW Plt Count Lymph % (Auto) [place] % (Auto) Lymph # (Auto) [place] # (Auto) Baso # (Auto) Seg Neutrophils % Seg Neuts % (Manual) Lymphocytes % (Manual) Seg Neutrophils # Seg Neutrophils # Man Lymphocytes # (Manual) D-Dimer ABG pH 7.250 L POC ABG pCO2 102.6 H POC ABG pO2 42.4 L ABG pO2 ABG HCO3 ABG O2 Saturation ABG Base Excess ABG Hemoglobin 9.0 L ABG Oxyhemoglobin 69.9 L ABG Sodium 131.1 L ABG Potassium ABG Chloride 89.0 L ABG Glucose 211 H Oxyhemoglobin Carboxyhemoglobin 1.7 H Sodium Potassium Chloride Carbon Dioxide BUN Creatinine Glucose POC Glucose 163 H 191 H Hemoglobin A1c Lactic Acid Calcium Magnesium Ferritin Total Bilirubin AST ALT Alkaline Phosphatase Lactate Dehydrogenase Total Creatine Kinase C-Reactive Protein Total Protein Albumin Triglycerides Arterial Blood Glucose 211 H Arterial Blood Ionized Calcium 4.0 L Ur Specific [place] Urine WBC (Auto) Vancomycin Trough Coronavirus (PCR) 12/24/20 12/24/20 12/24/20 18:57 20:48 23:31 WBC 19.1 H RBC 2.91 L Hgb 8.3 L Hct 26.0 L RDW 16.0 H Plt Count Lymph % (Auto) [place] % (Auto) Lymph # (Auto) [place] # (Auto) Baso # (Auto) Seg Neutrophils % Seg Neuts % (Manual) 92.0 H Lymphocytes % (Manual) 5.0 L Seg Neutrophils # Seg Neutrophils # Man 17.6 H Lymphocytes # (Manual) 1.0 L D-Dimer ABG pH POC ABG pCO2 82.1 H POC ABG pO2 38.6 L ABG pO2 ABG HCO3 ABG O2 Saturation ABG Base Excess ABG Hemoglobin 9.3 L ABG Oxyhemoglobin 70.8 L ABG Sodium 130.7 L ABG Potassium ABG Chloride 89.0 L ABG Glucose 226 H Oxyhemoglobin Carboxyhemoglobin 1.8 H Sodium Potassium Chloride Carbon Dioxide BUN Creatinine Glucose POC Glucose 181 H Hemoglobin A1c Lactic Acid Calcium Magnesium Ferritin Total Bilirubin AST ALT Alkaline Phosphatase Lactate Dehydrogenase Total Creatine Kinase C-Reactive Protein Total Protein Albumin Triglycerides Arterial Blood Glucose 226 H Arterial Blood Ionized Calcium 4.1 L Ur Specific [place] Urine WBC (Auto) Vancomycin Trough Coronavirus (PCR) 12/25/20 12/25/2021 04:04 06:31 11:17 WBC RBC Hgb Hct RDW Plt Count Lymph % (Auto) [place] % (Auto) Lymph # (Auto) [place] # (Auto) Baso # (Auto) Seg Neutrophils % Seg Neuts % (Manual) Lymphocytes % (Manual) Seg Neutrophils # Seg Neutrophils # Man Lymphocytes # (Manual) D-Dimer ABG pH POC ABG pCO2 75.6 H POC ABG pO2 43.3 L ABG pO2 ABG HCO3 ABG O2 Saturation ABG Base Excess ABG Hemoglobin 10.6 L ABG Oxyhemoglobin 77.6 L ABG Sodium 131.4 L ABG Potassium ABG Chloride 90.0 L ABG Glucose 185 H Oxyhemoglobin Carboxyhemoglobin 2.4 H Sodium Potassium Chloride Carbon Dioxide BUN Creatinine Glucose POC Glucose 153 H Hemoglobin A1c Lactic Acid Calcium Magnesium Ferritin Total Bilirubin AST ALT Alkaline Phosphatase Lactate Dehydrogenase Total Creatine Kinase C-Reactive Protein Total Protein Albumin Triglycerides 328 H Arterial Blood Glucose 185 H Arterial Blood Ionized Calcium 4.1 L Ur Specific [place] Urine WBC (Auto) Vancomycin Trough Coronavirus (PCR) 12/25/20 12/25/20 12/25/20 11:17 11:17 12:07 WBC 19.6 H RBC 2.82 L Hgb 8.1 L Hct 25.2 L RDW 16.2 H Plt Count Lymph % (Auto) [place] % (Auto) Lymph # (Auto) [place] # (Auto) Baso # (Auto) Seg Neutrophils % Seg Neuts % (Manual) Lymphocytes % (Manual) Seg Neutrophils # Seg Neutrophils # Man Lymphocytes # (Manual) D-Dimer ABG pH POC ABG pCO2 POC ABG pO2 ABG pO2 ABG HCO3 ABG O2 Saturation ABG Base Excess ABG Hemoglobin ABG Oxyhemoglobin ABG Sodium ABG Potassium ABG Chloride ABG Glucose Oxyhemoglobin Carboxyhemoglobin Sodium 136 L Potassium Chloride 92.3 L Carbon Dioxide 44 H* BUN Creatinine 0.3 L Glucose 240 H POC Glucose 210 H Hemoglobin A1c Lactic Acid Calcium 7.3 L Magnesium Ferritin Total Bilirubin AST ALT Alkaline Phosphatase Lactate Dehydrogenase Total Creatine Kinase C-Reactive Protein Total Protein Albumin Triglycerides Arterial Blood Glucose Arterial Blood Ionized Calcium Ur Specific [place] Urine WBC (Auto) Vancomycin Trough Coronavirus (PCR) Chest x-ray: report reviewed (mult chest tubes small R ptx ), image reviewed
--- NOTE | 2020-12-25 19:06 | Progress Note ---
Assessment and Plan - Patient Problems (1) Pneumothorax Current Visit: Yes Status: Acute Plan to address problem: 1) Continue right CT X 2 to -20 cm of water suction. 2) Daily CXR Subjective Date of service: 12/25/20 Patient Reports: Positive: no new complaints (Intubated.) Objective Vital Signs - 12hr 12/25/20 12/25/20 12/25/20 07:15 07:30 07:32 Temperature 101.5 F H Pulse Rate 107 H 107 H Respiratory 30 H 30 H Rate Blood Pressure 109/54 103/54 O2 Sat by Pulse 85 85 Oximetry 12/25/20 12/25/20 12/25/20 07:45 08:00 08:15 Temperature Pulse Rate 109 H 110 H 114 H Respiratory 30 H 30 H 30 H Rate Blood Pressure 91/55 87/57 103/61 O2 Sat by Pulse 83 L 83 L 83 L Oximetry 12/25/20 12/25/20 12/25/20 08:30 08:45 08:58 Temperature Pulse Rate 117 H 108 H 99 H Respiratory 30 H 30 H Rate Blood Pressure 116/58 125/63 132/69 O2 Sat by Pulse 82 L 83 L Oximetry 12/25/20 12/25/20 12/25/20 09:00 09:15 09:30 Temperature Pulse Rate 100 H 103 H 97 H Respiratory 30 H 30 H 30 H Rate Blood Pressure 132/69 125/71 130/70 O2 Sat by Pulse 84 80 L 82 L Oximetry 12/25/20 12/25/20 12/25/20 09:45 10:00 10:15 Temperature Pulse Rate 100 H 101 H 98 H Respiratory 30 H 30 H 30 H Rate Blood Pressure 138/72 139/81 130/74 O2 Sat by Pulse 82 L 82 L 83 L Oximetry 12/25/20 12/25/20 12/25/20 10:30 10:45 11:00 Temperature Pulse Rate 101 H 109 H 111 H Respiratory 30 H 30 H 30 H Rate Blood Pressure 137/72 139/73 143/79 O2 Sat by Pulse 81 L 88 91 Oximetry 12/25/20 12/25/20 12/25/20 11:15 11:30 11:45 Temperature Pulse Rate 117 H 115 H 116 H Respiratory 30 H 29 H 30 H Rate Blood Pressure 142/82 151/81 135/78 O2 Sat by Pulse 91 79 L 90 Oximetry 12/25/20 12/25/20 12/25/20 12:00 12:15 12:30 Temperature Pulse Rate 122 H 122 H 135 H Respiratory 30 H 30 H 30 H Rate Blood Pressure 142/79 143/77 158/79 O2 Sat by Pulse 89 89 89 Oximetry 12/25/20 12/25/20 12/25/20 12:32 12:46 13:00 Temperature 99.2 F Pulse Rate 123 H 124 H Respiratory 30 H 30 H Rate Blood Pressure 131/63 117/61 O2 Sat by Pulse 88 87 Oximetry 12/25/20 12/25/20 12/25/20 13:01 13:15 13:30 Temperature Pulse Rate 119 H 115 H 112 H Respiratory 30 H 30 H Rate Blood Pressure 117/61 110/63 110/57 O2 Sat by Pulse 87 87 87 Oximetry 12/25/20 12/25/20 12/25/20 13:45 14:00 14:15 Temperature Pulse Rate 111 H 106 H 101 H Respiratory 30 H 30 H 13 Rate Blood Pressure 113/61 101/59 106/59 O2 Sat by Pulse 89 88 89 Oximetry 12/25/20 12/25/20 12/25/20 14:30 14:45 15:00 Temperature Pulse Rate 100 H 96 H 97 H Respiratory 22 30 H 30 H Rate Blood Pressure 101/54 101/54 97/58 O2 Sat by Pulse 90 91 92 Oximetry 12/25/20 12/25/20 12/25/20 15:15 15:30 15:45 Temperature Pulse Rate 95 H 95 H 93 H Respiratory 30 H 30 H 30 H Rate Blood Pressure 106/61 108/61 105/59 O2 Sat by Pulse 94 94 94 Oximetry 12/25/20 12/25/20 12/25/20 16:00 16:15 16:30 Temperature Pulse Rate 97 H 94 H 95 H Respiratory 30 H 23 20 Rate Blood Pressure 112/63 105/60 111/61 O2 Sat by Pulse 95 95 95 Oximetry 12/25/20 12/25/20 12/25/20 16:42 16:45 17:00 Temperature Pulse Rate 95 H 95 H 94 H Respiratory 30 H 30 H Rate Blood Pressure 106/59 106/59 104/56 O2 Sat by Pulse 94 94 94 Oximetry 12/25/20 12/25/20 12/25/20 17:15 17:30 17:45 Temperature Pulse Rate 92 H 95 H 93 H Respiratory 30 H 27 H 30 H Rate Blood Pressure 108/59 90/47 97/54 O2 Sat by Pulse 94 96 Oximetry 12/25/20 12/25/20 18:05 18:07 Temperature 97.5 F L Pulse Rate 92 H Respiratory 30 H Rate Blood Pressure O2 Sat by Pulse 95 Oximetry - Labs 12/25/20 11:17 12/25/20 11:17 Diabetes panel 12/25/20 12/25/20 Range/Units 11:17 11:17 Sodium 136 L (137-145) mmol/L Potassium 4.2 (3.6-5.0) mmol/L Chloride 92.3 L (98-107) mmol/L Carbon Dioxide 44 H* (22-30) mmol/L BUN 17 (9-20) mg/dL Creatinine 0.3 L (0.8-1.3) mg/dL Glucose 240 H (75-100) mg/dL Calcium 7.3 L (8.4-10.2) mg/dL Triglycerides 328 H (2-149) mg/dL Calcium panel 12/25/20 Range/Units 11:17 Calcium 7.3 L (8.4-10.2) mg/dL Pituitary panel 12/25/20 Range/Units 11:17 Sodium 136 L (137-145) mmol/L Potassium 4.2 (3.6-5.0) mmol/L Chloride 92.3 L (98-107) mmol/L Carbon Dioxide 44 H* (22-30) mmol/L BUN 17 (9-20) mg/dL Creatinine 0.3 L (0.8-1.3) mg/dL Glucose 240 H (75-100) mg/dL Calcium 7.3 L (8.4-10.2) mg/dL Adrenal panel 12/25/20 Range/Units 11:17 Sodium 136 L (137-145) mmol/L Potassium 4.2 (3.6-5.0) mmol/L Chloride 92.3 L (98-107) mmol/L Carbon Dioxide 44 H* (22-30) mmol/L BUN 17 (9-20) mg/dL Creatinine 0.3 L (0.8-1.3) mg/dL Glucose 240 H (75-100) mg/dL Calcium 7.3 L (8.4-10.2) mg/dL - Imaging Chest x-ray: report reviewed, image reviewed (O2 sat 95%. Still of FIO2 of 1.0 and PEEP of 20.)
[2020-12-25] MEDS: INSULIN GLARGINE 100 UNITS/ML SUB-Q SCH (22:09)
[2020-12-25] MEDS: ENOXAPARIN 40 MG/0.4 ML INJ SUB-Q SCH (22:09)
[2020-12-25] MEDS: NORepinephrine 8 MG in SODIUM CHLORIDE 0.9% 250ML 242 ML IV SCH (23:30)
[2020-12-26] MEDS: INSULIN LISPRO 100 UNIT/ML SUB-Q SCH ×4 (00:51→17:41)
[2020-12-26] MEDS: PIPERACIL/TAZOBACTA 4.5/NS 100 4.5 GM/100 ML VIAL IV SCH ×4 (00:57→17:41)
[2020-12-26] MEDS: fentaNYL DRIP Premix 2,000 MCG/100 ML BAG IV SCH ×3 (04:08→23:07)
[2020-12-26 05:44] LABS: Hematocrit 24.1 % (35.5-45.6); Hemoglobin 7.8 gm/dl (11.8-15.2); Mean Corpuscular HGB Conc 32 % (32-34); Mean Corpuscular Volume 88 fl (84-94); Platelet Count 451 K/mm3 (140-440); Red Blood Count 2.75 M/mm3 (3.65-5.03); Red Cell Distribution Width 16.3 % (13.2-15.2)
[2020-12-26 06:10] LABS: Alanine Aminotransferase 24 units/L (7-56); Albumin 1.6 g/dL (3.9-5); Blood Urea Nitrogen 17 mg/dL (9-20); Calcium 7.4 mg/dL (8.4-10.2); Hemolysis Index 3
[2020-12-26 06:13] LABS: BUN/Creatinine Ratio 85
[2020-12-26] MEDS: SENNOSIDES/DOCUSATE SODIUM 8.6/50 MG TAB PO SCH ×3 (07:22→21:22)
--- NOTE | 2020-12-26 07:32 | XRay Report ---
XR chest 1V ap INDICATION / CLINICAL INFORMATION: Re-evaluation/possible extension of pneumothorax. COMPARISON: Radiograph from yesterday. FINDINGS: SUPPORT DEVICES: Unchanged. HEART / MEDIASTINUM: Unchanged. LUNGS / PLEURA: Lung parenchyma is not significantly changed. Unchanged right pneumothorax. ADDITIONAL FINDINGS: Subcutaneous emphysema. IMPRESSION: 1. No significant interval change. Signer Name: Salomon Whitaker MD Signed: 12/26/2020 7:28 AM Workstation Name: [id number]
[2020-12-26] MEDS: NORepinephrine 8 MG in SODIUM CHLORIDE 0.9% 250ML 242 ML IV SCH ×2 (08:05→15:43)
[2020-12-26] MEDS ORDERED: acetaZOLAMIDE 250 MG TAB PO ONE (08:05)
[2020-12-26] MEDS: MIDAZOLAM 100 MG in SODIUM CHLORIDE 0.9% 80 ML IV SCH (08:34)
[2020-12-26] MEDS: FAMOTIDINE 20 MG TAB PO SCH ×2 (10:19→21:23)
[2020-12-26] MEDS: DOCUSATE SODIUM 100 MG/10 ML ORAL LIQD PO SCH ×2 (10:19→21:23)
[2020-12-26] MEDS: POLYETHYLENE GLYCOL 3350 17 GM POWDER PO SCH (10:19)
[2020-12-26 10:31] LABS: Total Cells Counted 100
[2020-12-26 10:34] LABS: Large Platelets Few; Platelet Estimate Consistent w Auto; Stomatocytes Few
--- NOTE | 2020-12-26 11:32 | Progress Note ---
Assessment and Plan Cultures: SARS CoV-2 PCR: positive Blood culture: No growth 11/21/2020 tracheal aspirate culture: MRSA 12/09/2020 blood culture: no growth 12/09/2020 sputum culture: Klebsiella 12/17/2020 blood culture: 1 bottle with coag negative staph, second bottle with Enterococcus faecalis 12/17/2020 tracheal aspirate culture: Usual respiratory zachariah 12/21/2020 blood culture: No growth A/P: 59-year-old male with: #Shock: multifactorial. #GPC bacteremia: source unclear. Typically, Enterococcus is not considered a contaminant, however only present in 1 out of 4 bottles while another set is growing Coag negative Staph. #Bilateral pneumonia: secondary to COVID-19. Completed abx, remdesivir. #Klebsiella on ET aspirate culture: ?colonization v/s true disease, difficult to differentiate. Will treat given development of low-grade temperatures and white count. #B/L pneumothorax and pneumomediastinum: s/p chest tubes. #Acute hypoxic respiratory failure: Remains on the vent. Recs: -continue Zosyn, D2 given persistent fever, shock -extremely poor prognosis, agree with DNR status, recent literature showing mortality of 100% in COVID-19 patients who required CPR Dayday Driscoll MD, FACP [facility] ([facility]) O: [phone] F: [phone] Subjective Date of service: 12/26/20 Principal diagnosis: COVID-19 Interval history: Remains critically ill. On pressors, on the vent with full support, intermittently febrile. Now DNR. Objective - Exam Narrative Exam: Physical Exam (reviewed in chart to minimize risk of transmission) Constitutional: deferred Head, Ears, Nose: deferred Eyes: deferred Neck: deferred Oral: deferred Cardiovascular: deferred Respiratory: deferred GI: deferred Musculoskeletal: deferred Skin: deferred Hem/Lymphatic: deferred Psych: deferred Neurological: deferred - Constitutional Vitals: Vital Signs Temp Pulse Resp BP Pulse Ox 98.3 F 85 30 H 100/55 96 12/26/20 08:00 12/26/20 11:15 12/26/20 11:15 12/26/20 11:15 12/26/20 11:15 Temperature -Last 24 Hours Temperature 98.3 F Temperature 98.4 F Temperature 98.8 F Temperature 100.1 F Temperature 97.5 F Temperature 99.2 F - Labs CBC & Chem 7: 12/26/20 05:26 12/26/20 05:26 Labs: Abnormal lab results 12/25/20 12/25/20 12/25/20 Range/Units 11:17 11:17 12:07 WBC (4.5-11.0) K/mm3 RBC (3.65-5.03) M/mm3 Hgb (11.8-15.2) gm/dl Hct (35.5-45.6) % RDW (13.2-15.2) % Plt Count (140-440) K/mm3 Seg Neuts % (Manual) (40.0-70.0) % Nucleated RBC % (0.0-0.9) % Seg Neutrophils # Man (1.8-7.7) K/mm3 Lymphocytes # (Manual) (1.2-5.4) K/mm3 POC ABG pCO2 (32.0-48.0) mmHg POC ABG pO2 (83-108) mmHg ABG Hemoglobin (12.0-17.5) ABG Sodium (136.0-145.0) mmol/L ABG Chloride (98-107) mmol/L ABG Glucose (65-95) mg/dL Sodium 136 L (137-145) mmol/L Chloride 92.3 L (98-107) mmol/L Carbon Dioxide 44 H* (22-30) mmol/L Creatinine 0.3 L (0.8-1.3) mg/dL Glucose 240 H (75-100) mg/dL POC Glucose 210 H (70-105) mg/dL Calcium 7.3 L (8.4-10.2) mg/dL Total Protein (6.3-8.2) g/dL Albumin (3.9-5) g/dL Triglycerides 328 H (2-149) mg/dL Arterial Blood Glucose (65-95) mg/dL Arterial Blood Ionized Calcium (4.6-5.3) mg/dL 12/25/20 12/25/20 12/25/20 Range/Units 17:52 21:49 23:47 WBC (4.5-11.0) K/mm3 RBC (3.65-5.03) M/mm3 Hgb (11.8-15.2) gm/dl Hct (35.5-45.6) % RDW (13.2-15.2) % Plt Count (140-440) K/mm3 Seg Neuts % (Manual) (40.0-70.0) % Nucleated RBC % (0.0-0.9) % Seg Neutrophils # Man (1.8-7.7) K/mm3 Lymphocytes # (Manual) (1.2-5.4) K/mm3 POC ABG pCO2 (32.0-48.0) mmHg POC ABG pO2 (83-108) mmHg ABG Hemoglobin (12.0-17.5) ABG Sodium (136.0-145.0) mmol/L ABG Chloride (98-107) mmol/L ABG Glucose (65-95) mg/dL Sodium (137-145) mmol/L Chloride (98-107) mmol/L Carbon Dioxide (22-30) mmol/L Creatinine (0.8-1.3) mg/dL Glucose (75-100) mg/dL POC Glucose 188 H 152 H 138 H (70-105) mg/dL Calcium (8.4-10.2) mg/dL Total Protein (6.3-8.2) g/dL Albumin (3.9-5) g/dL Triglycerides (2-149) mg/dL Arterial Blood Glucose (65-95) mg/dL Arterial Blood Ionized Calcium (4.6-5.3) mg/dL 12/26/20 12/26/20 12/26/20 Range/Units 04:00 05:20 05:26 WBC (4.5-11.0) K/mm3 RBC (3.65-5.03) M/mm3 Hgb (11.8-15.2) gm/dl Hct (35.5-45.6) % RDW (13.2-15.2) % Plt Count (140-440) K/mm3 Seg Neuts % (Manual) (40.0-70.0) % Nucleated RBC % (0.0-0.9) % Seg Neutrophils # Man (1.8-7.7) K/mm3 Lymphocytes # (Manual) (1.2-5.4) K/mm3 POC ABG pCO2 73.4 H (32.0-48.0) mmHg POC ABG pO2 58.8 L (83-108) mmHg ABG Hemoglobin 7.4 L (12.0-17.5) ABG Sodium 135.2 L (136.0-145.0) mmol/L ABG Chloride 96.0 L (98-107) mmol/L ABG Glucose 164 H (65-95) mg/dL Sodium (137-145) mmol/L Chloride (98-107) mmol/L Carbon Dioxide (22-30) mmol/L Creatinine (0.8-1.3) mg/dL Glucose (75-100) mg/dL POC Glucose 147 H (70-105) mg/dL Calcium (8.4-10.2) mg/dL Total Protein (6.3-8.2) g/dL Albumin (3.9-5) g/dL Triglycerides 307 H (2-149) mg/dL Arterial Blood Glucose 164 H (65-95) mg/dL Arterial Blood Ionized Calcium 4.1 L (4.6-5.3) mg/dL 12/26/20 12/26/20 12/26/20 Range/Units 05:26 05:26 11:21 WBC 16.2 H (4.5-11.0) K/mm3 RBC 2.75 L (3.65-5.03) M/mm3 Hgb 7.8 L (11.8-15.2) gm/dl Hct 24.1 L (35.5-45.6) % RDW 16.3 H (13.2-15.2) % Plt Count 451 H (140-440) K/mm3 Seg Neuts % (Manual) 87.0 H (40.0-70.0) % Nucleated RBC % 5.0 H (0.0-0.9) % Seg Neutrophils # Man 14.1 H (1.8-7.7) K/mm3 Lymphocytes # (Manual) 0.0 L (1.2-5.4) K/mm3 POC ABG pCO2 (32.0-48.0) mmHg POC ABG pO2 (83-108) mmHg ABG Hemoglobin (12.0-17.5) ABG Sodium (136.0-145.0) mmol/L ABG Chloride (98-107) mmol/L ABG Glucose (65-95) mg/dL Sodium (137-145) mmol/L Chloride 95.2 L (98-107) mmol/L Carbon Dioxide 44 H* (22-30) mmol/L Creatinine 0.2 L (0.8-1.3) mg/dL Glucose 155 H (75-100) mg/dL POC Glucose 127 H (70-105) mg/dL Calcium 7.4 L (8.4-10.2) mg/dL Total Protein 6.0 L (6.3-8.2) g/dL Albumin 1.6 L (3.9-5) g/dL Triglycerides (2-149) mg/dL Arterial Blood Glucose (65-95) mg/dL Arterial Blood Ionized Calcium (4.6-5.3) mg/dL
--- NOTE | 2020-12-26 12:00 | Progress Note ---
Assessment and Plan - Patient Problems (1) Pneumothorax Current Visit: Yes Status: Acute Plan to address problem: 1) Continue CT until/if pt is extubated. 2) I will not round daily on this pt. Call me if needed. Subjective Date of service: 12/26/20 Patient Reports: Positive: no new complaints Objective Vital Signs - 12hr 12/26/20 12/26/20 12/26/20 00:00 00:03 00:15 Temperature 98.8 F Pulse Rate 81 80 80 Pulse Rate [ From Monitor] Respiratory 30 H 30 H Rate Blood Pressure 91/55 91/53 93/53 O2 Sat by Pulse 96 96 96 Oximetry 12/26/20 12/26/20 12/26/20 00:30 00:45 01:00 Temperature Pulse Rate 80 81 80 Pulse Rate [ From Monitor] Respiratory 30 H 30 H 30 H Rate Blood Pressure 95/56 94/55 93/55 O2 Sat by Pulse 96 95 96 Oximetry 12/26/20 12/26/20 12/26/20 01:15 01:30 01:45 Temperature Pulse Rate 80 79 81 Pulse Rate [ From Monitor] Respiratory 30 H 30 H 30 H Rate Blood Pressure 102/59 100/58 105/60 O2 Sat by Pulse 96 96 96 Oximetry 12/26/20 12/26/20 12/26/20 02:00 02:15 02:30 Temperature Pulse Rate 79 78 78 Pulse Rate [ From Monitor] Respiratory 30 H 30 H 30 H Rate Blood Pressure 105/56 99/57 94/56 O2 Sat by Pulse 96 95 95 Oximetry 12/26/20 12/26/20 12/26/20 02:45 03:00 03:15 Temperature Pulse Rate 77 78 78 Pulse Rate [ From Monitor] Respiratory 30 H 30 H 30 H Rate Blood Pressure 93/57 101/57 100/60 O2 Sat by Pulse 95 95 95 Oximetry 12/26/20 12/26/20 12/26/20 03:30 03:39 03:41 Temperature 98.4 F Pulse Rate 77 77 Pulse Rate [ From Monitor] Respiratory 30 H Rate Blood Pressure 101/59 101/59 O2 Sat by Pulse 95 95 Oximetry 12/26/20 12/26/20 12/26/20 03:45 04:00 04:15 Temperature Pulse Rate 84 78 79 Pulse Rate [ From Monitor] Respiratory 15 30 H 30 H Rate Blood Pressure 104/56 98/55 103/59 O2 Sat by Pulse 82 L 93 96 Oximetry 12/26/20 12/26/20 12/26/20 04:30 04:45 05:00 Temperature Pulse Rate 79 78 78 Pulse Rate [ From Monitor] Respiratory 30 H 30 H 30 H Rate Blood Pressure 100/57 101/59 103/55 O2 Sat by Pulse 96 96 96 Oximetry 12/26/20 12/26/20 12/26/20 05:15 05:30 05:45 Temperature Pulse Rate 78 81 79 Pulse Rate [ From Monitor] Respiratory 30 H 30 H 30 H Rate Blood Pressure 98/61 104/57 103/61 O2 Sat by Pulse 96 94 94 Oximetry 12/26/20 12/26/20 12/26/20 06:00 06:15 06:30 Temperature Pulse Rate 79 82 82 Pulse Rate [ From Monitor] Respiratory 30 H 30 H 30 H Rate Blood Pressure 103/61 104/58 110/61 O2 Sat by Pulse 94 94 91 Oximetry 12/26/20 12/26/20 12/26/20 06:45 07:00 07:15 Temperature Pulse Rate 83 95 H 83 Pulse Rate [ From Monitor] Respiratory 30 H 30 H 30 H Rate Blood Pressure 109/63 109/63 111/65 O2 Sat by Pulse 94 93 95 Oximetry 12/26/20 12/26/20 12/26/20 07:30 07:45 08:00 Temperature 98.3 F Pulse Rate 83 83 80 Pulse Rate [ 80 From Monitor] Respiratory 30 H 30 H 30 H Rate Blood Pressure 112/64 107/63 113/66 O2 Sat by Pulse 95 94 93 Oximetry 12/26/20 12/26/20 12/26/20 08:15 08:30 08:45 Temperature Pulse Rate 81 88 83 Pulse Rate [ From Monitor] Respiratory 30 H 30 H 30 H Rate Blood Pressure 117/66 117/66 113/61 O2 Sat by Pulse 93 87 93 Oximetry 12/26/20 12/26/20 12/26/20 09:00 09:15 09:30 Temperature Pulse Rate 86 86 89 Pulse Rate [ From Monitor] Respiratory 30 H 30 H 30 H Rate Blood Pressure 117/68 113/63 108/60 O2 Sat by Pulse 95 94 94 Oximetry 12/26/20 12/26/20 12/26/20 09:45 10:00 10:15 Temperature Pulse Rate 88 87 88 Pulse Rate [ From Monitor] Respiratory 30 H 30 H 30 H Rate Blood Pressure 112/58 105/58 100/58 O2 Sat by Pulse 93 95 95 Oximetry 12/26/20 12/26/20 12/26/20 10:30 10:45 11:10 Temperature Pulse Rate 88 89 87 Pulse Rate [ From Monitor] Respiratory 30 H 30 H 30 H Rate Blood Pressure 113/62 104/56 O2 Sat by Pulse 91 95 96 Oximetry 12/26/20 11:15 Temperature Pulse Rate 85 Pulse Rate [ From Monitor] Respiratory 30 H Rate Blood Pressure 100/55 O2 Sat by Pulse 96 Oximetry - Labs 12/26/20 05:26 12/26/20 05:26 Diabetes panel 12/25/20 12/26/20 12/26/20 Range/Units 11:17 05:26 05:26 Sodium 140 (137-145) mmol/L Potassium 3.8 (3.6-5.0) mmol/L Chloride 95.2 L (98-107) mmol/L Carbon Dioxide 44 H* 44 H* (22-30) mmol/L BUN 17 (9-20) mg/dL Creatinine 0.3 L 0.2 L (0.8-1.3) mg/dL Glucose 155 H (75-100) mg/dL Calcium 7.4 L (8.4-10.2) mg/dL AST 25 (5-40) units/L ALT 24 (7-56) units/L Alkaline Phosphatase 95 (35-129) units/L Total Protein 6.0 L (6.3-8.2) g/dL Albumin 1.6 L (3.9-5) g/dL Triglycerides 307 H (2-149) mg/dL Calcium panel 12/26/20 Range/Units 05:26 Calcium 7.4 L (8.4-10.2) mg/dL Albumin 1.6 L (3.9-5) g/dL Pituitary panel 12/25/20 12/26/20 Range/Units 11:17 05:26 Sodium 140 (137-145) mmol/L Potassium 3.8 (3.6-5.0) mmol/L Chloride 95.2 L (98-107) mmol/L Carbon Dioxide 44 H* 44 H* (22-30) mmol/L BUN 17 (9-20) mg/dL Creatinine 0.3 L 0.2 L (0.8-1.3) mg/dL Glucose 155 H (75-100) mg/dL Calcium 7.4 L (8.4-10.2) mg/dL Adrenal panel 12/25/20 12/26/20 Range/Units 11:17 05:26 Sodium 140 (137-145) mmol/L Potassium 3.8 (3.6-5.0) mmol/L Chloride 95.2 L (98-107) mmol/L Carbon Dioxide 44 H* 44 H* (22-30) mmol/L BUN 17 (9-20) mg/dL Creatinine 0.3 L 0.2 L (0.8-1.3) mg/dL Glucose 155 H (75-100) mg/dL Calcium 7.4 L (8.4-10.2) mg/dL Total Bilirubin 0.30 (0.1-1.2) mg/dL AST 25 (5-40) units/L ALT 24 (7-56) units/L Alkaline Phosphatase 95 (35-129) units/L Total Protein 6.0 L (6.3-8.2) g/dL Albumin 1.6 L (3.9-5) g/dL - Imaging Chest x-ray: report reviewed (O2 sat 96%)
--- NOTE | 2020-12-26 12:01 | Progress Note ---
Assessment and Plan 59 y/o male with acute respiratory failure, abnormal CXR and abnormal lab studies. 12/26/20: Very very poor prognosis given prolong time of hypoxemia during the events from and continued hypoxemia despite 100%. PTX's and recurrent PTX's have been very common with this current wave of COVID 19 so not entirely unexpected. Appreciate surgery help with second chest tube. Will Strip tubes again tomorrow morning. COntinue sedation and vasopressor support. Very very poor prognosis. Please do not give any further lasix, as the changes seen are not edema related. 12/24/20: If patient spikes again in the next 24 hours, please reculture urine and blood. In regards to cuff, as long as patient is not losing volumes, no indication to change tube out as of yet. Will continue to monitor. Continue abx as ID recs. Attempt to wean back down again but unfortunately this has been an ongoing issue for this patient. Continue pressors to help achieve adequate sedation for vent management. Prognosis remains guarded. 12/23/20: Continue current level of sedation. Wean parameters as listed below. appreciate ID recs and help. 12/22/20: Continue current level of sedation. Ok to wean FiO2 for sats >88% and PaO2>55mmHg. Follow up ID recs in regards to abx therapy. Prognosis unfortunately still remains guarded. 12/21/20: Back up to 100%. Peep is the same chest tubes intact. Long discussion on rounds, will restart Diprovan to obtain adequate sedation (RASS of -4). Ok to titrate pressors to achieve adequate sedation if blood pressure is compromised by sedatives. Prognosis remains guarded. Awaiting speciation of other cultures. 12/18/20: Still on 75% and 18 of PEEP. Follow up cultures, Blood pending, urine has not resulted yet. Had another temp at 20:00 last night. CXR looks more like pulmonary edema but not in a position to diurese at this time as he occasionally requires vasopressor support given the amount of sedation needed to achieve a RASS of 4. If he continues to spike, would consider hospital acquired coverage of abx therapy. Prognosis remains guarded. 12/17/20: Back down to 75%. Febrile last night, if and when spikes again today, please obtain blood cultures times 2 and urine. Will go ahead and order repeat CXR now. Prognosis still remains guarded. 12/16/20: Back up to 100%. Once stabilized will attempt to wean back down. ABG in the am and may need to consider repeat ABG later this afternoon pending clinical state. Unable to prone given bilateral chest tubes. Prognosis remains guarded to poor. 12/15/20: Tolerating weaning from yesterday. RT to attempt to wean some more today. Kidney function remains unchanged. Guarded prognosis. 12/14/20: Unable to wean FiO2 today. Continue supportive measures. Great that his kidney function has maintained but given the amount of oxygen he continues to require, his chances of recovery continue to decrease. Family aware and will up date them as needed. Very very guarded prognosis. 12/13/20: WIll start Weaning FiO2 again tomorrow morning of PaO2 remains this good. Continue all other supportive measures. Guarded prognosis. Monitor renal function closely. 12/12/20: Long discussion with brother at door. Patient remains full code which is not unreasonable but family is realistic about outcome being poor. Will continue all supportive measures. IF clinical state worsens, will ask family to come back to see patient. Guarded Prognosis. 12/11/20: Will attempt to wean Diprovan off and increase precedex. Triglycerides were ok. IF we have to support with pressors we will but I have asked nursing to please be detailed in their checkouts as to why they did certain things with the continuous drips. Continue supportive measures. Brother is going to try to come and see him from [place] 12/10/20: No acute events overnight. Patient has had waxing and waning of the amount of oxygen he has required over the last 24-72 hours. I have a bad feeling that he is on the brink of cardiac arrest and this could happen at any moment. I am going to reach out to the brother today to explain to him my concerns. Patient is a full code. Very very guarded prognosis. 12/09/20: Repeat ABG later today. Wean FiO2 for sats >88%. Repeat CXR as well. With BP dropping could be relative adrenal insufficiency, will watch for now, however if pressor requirement increases would consider stress dose steroids and maybe volume replacement. Follow up cultures. Guarded prognosis. 12/08/20: Increase TV to 425. Drop FiO2 to 65% and wean for sats >88%. COntinue chest tubes. Change steroids to 20q12. 12/07/20: CXR is stable, no indication for another chest tube at this time. Will repeat ABG in 1 hour post change to 70% and wean accordingly. Dropping steroids to 20q8. Guarded prognosis. Same weaning parameters apply today as of 12/04/20 12/04/20: Continue to wean steroids to off. Continue to wean FiO2 for sats >88%. Keep PEEP at current level, would not feel comfortable weaning PEEP until FiO2 at 35-40%. Continue chest tubes to suction. PaO2 of >55, pH of >7.2 and sats >88% are acceptable. : Dropped steroids down to 40q8 and will start to wean from there. Continue to slowly wean FiO2 first, keep PEEP at current level. Spoke with Kehinde, please see my event note, who is the biological brother. He had no questions but thanked us for our care. Prognosis remains very very guarded. PaO2 of 55 and pH of >7.2 and sats of >88% are all acceptable. 12/02/20: Wean FiO2 for sats >88% and PaO2 >55. Unable to prone currently secondary to bilateral chest tubes. COntinue high dose steroids. CM To figure out who is the immediate next of kin that can make decisions and then we will discuss the current clinical situation with them. 12/01/20: Continue PEEP and FiO2 elevated to keep sats >88% and PaO2 >55. Small lung volumes and high PEEP. very very guarded prognosis. 11/30/20: Worsening hypoxemia. Chest tubes stable. Likely just worsening disease. Unable to prone now. Increase PEEP to 18 and FiO2 back up to 100. Continue 3 sedatives for RASS of -2. Obtain 12 lead to look at T waves as K was only 4.6 on yesterday. Guarded, guarded prognosis 11/29/20: Second chest tube in on yesterday. CXR is stable. ABG unchanged. Wi ll likely increase PEEP now that chest tubes are in. No further paralytics. Still making good urine. Prognosis remains guarded. Will check chemistry to assess Potassium levels given peaked t's seen on monitor. 11/28/20: Second chest tube today. Once chest tube in, will likely increase PEEP to 18 and repeat gas about 2 hours after this. Continue paralytic today. No proning now that patient will have bilateral chest tubes. VEry guarded prognosis. 11/27/20: Spoke with surgery who have agreed to evaluate and placed chest tube on either right or left side pending CXR reading. Will monitor for 36-48 hours and if no resolution, will need chest tube placed on opposite side as well. Once placed, will likely paralyze again but hold on proning for now. Guarded prognosis. 11/26/20: Paralytics are off. Continue current level of sedation. Will prone for 12 hours today and repeat ABG in the am. Continue lung protective strategy. Guarded prognosis. 11/25/20: Prone again to 16 hours, will prone at 12-12:30. Continue paralytics for 24 more hours. Discussed the idea of permissive hypercapnea again today and as long as pH is above 7.2 no changes should be made to TV and or RR without discussing with physician. Continue to monitor urine output, guarded prognosis. Hold on lasix therapy today. 11/24/20: Prone again today. Will try 48 hours of paralyzing the patient to see if this will help with oxygenation. Will speak with RT's about permissive hypercapnea and that pH's of 7.2 and greater are ok. Continue high doses steroids. Prognosis is still very very guarded. If not improvement with paralytics, will attempt transfer. 11/23/20: Prone again today for 12 hours. Continue High Dose steroids. Hold on lasix given marginal BP's. Prognosis is very very guarded to poor. Will continue all supportive measures. If not able to wean from 100%, will attempt transfer for ECMO. 1. Pulm- Agree with concern for covid. Agree with empiric abx but procal is only mildly elevated. Await cultures. Continue bipap therapy for now but will need to monitor closely. [employer] has ordered CTA, but I spoke with pharmacy and we will empirically treat with BID lovenox therapy. COntinue empiric steroid therapy for COVID until studies back. Not sure that he will be able to prone on bipap therapy. Monitor volume status and run as dry as possible. 2. Renal-normal function but all electrolytes abnormal. HYponatremia and Hypochloremia volume up vs volume down. Sent BNP. Would suggest obtaning echo as well. Not sure what to make of elevated lactate unless that is from inc reased work of breathing or damage to other tissue unknown. May need to check LFT's and Coags as well. 3. Guarded Prognosis. CCT 31 minutes. Subjective Date of service: 12/26/20 Principal diagnosis: COVID-19 Interval history: PaO2's continue to be low. Family has made patient DNR/DNI which is appropriate. Chest Tubes in place. Repeat CXR is stable. Subq air is slightly worse but no evidence of enlarging pneumothorax. Objective Vital Signs - 12hr 12/26/20 12/26/20 12/26/20 00:00 00:03 00:15 Temperature 98.8 F Pulse Rate 81 80 80 Pulse Rate [ From Monitor] Respiratory 30 H 30 H Rate Blood Pressure 91/55 91/53 93/53 O2 Sat by Pulse 96 96 96 Oximetry 12/26/20 12/26/20 12/26/20 00:30 00:45 01:00 Temperature Pulse Rate 80 81 80 Pulse Rate [ From Monitor] Respiratory 30 H 30 H 30 H Rate Blood Pressure 95/56 94/55 93/55 O2 Sat by Pulse 96 95 96 Oximetry 12/26/20 12/26/20 12/26/20 01:15 01:30 01:45 Temperature Pulse Rate 80 79 81 Pulse Rate [ From Monitor] Respiratory 30 H 30 H 30 H Rate Blood Pressure 102/59 100/58 105/60 O2 Sat by Pulse 96 96 96 Oximetry 12/26/20 12/26/20 12/26/20 02:00 02:15 02:30 Temperature Pulse Rate 79 78 78 Pulse Rate [ From Monitor] Respiratory 30 H 30 H 30 H Rate Blood Pressure 105/56 99/57 94/56 O2 Sat by Pulse 96 95 95 Oximetry 12/26/20 12/26/20 12/26/20 02:45 03:00 03:15 Temperature Pulse Rate 77 78 78 Pulse Rate [ From Monitor] Respiratory 30 H 30 H 30 H Rate Blood Pressure 93/57 101/57 100/60 O2 Sat by Pulse 95 95 95 Oximetry 12/26/20 12/26/20 12/26/20 03:30 03:39 03:41 Temperature 98.4 F Pulse Rate 77 77 Pulse Rate [ From Monitor] Respiratory 30 H Rate Blood Pressure 101/59 101/59 O2 Sat by Pulse 95 95 Oximetry 12/26/20 12/26/20 12/26/20 03:45 04:00 04:15 Temperature Pulse Rate 84 78 79 Pulse Rate [ From Monitor] Respiratory 15 30 H 30 H Rate Blood Pressure 104/56 98/55 103/59 O2 Sat by Pulse 82 L 93 96 Oximetry 12/26/20 12/26/20 12/26/20 04:30 04:45 05:00 Temperature Pulse Rate 79 78 78 Pulse Rate [ From Monitor] Respiratory 30 H 30 H 30 H Rate Blood Pressure 100/57 101/59 103/55 O2 Sat by Pulse 96 96 96 Oximetry 12/26/20 12/26/20 12/26/20 05:15 05:30 05:45 Temperature Pulse Rate 78 81 79 Pulse Rate [ From Monitor] Respiratory 30 H 30 H 30 H Rate Blood Pressure 98/61 104/57 103/61 O2 Sat by Pulse 96 94 94 Oximetry 12/26/20 12/26/20 12/26/20 06:00 06:15 06:30 Temperature Pulse Rate 79 82 82 Pulse Rate [ From Monitor] Respiratory 30 H 30 H 30 H Rate Blood Pressure 103/61 104/58 110/61 O2 Sat by Pulse 94 94 91 Oximetry 12/26/20 12/26/20 12/26/20 06:45 07:00 07:15 Temperature Pulse Rate 83 95 H 83 Pulse Rate [ From Monitor] Respiratory 30 H 30 H 30 H Rate Blood Pressure 109/63 109/63 111/65 O2 Sat by Pulse 94 93 95 Oximetry 12/26/20 12/26/20 12/26/20 07:30 07:45 08:00 Temperature 98.3 F Pulse Rate 83 83 80 Pulse Rate [ 80 From Monitor] Respiratory 30 H 30 H 30 H Rate Blood Pressure 112/64 107/63 113/66 O2 Sat by Pulse 95 94 93 Oximetry 12/26/20 12/26/20 12/26/20 08:15 08:30 08:45 Temperature Pulse Rate 81 88 83 Pulse Rate [ From Monitor] Respiratory 30 H 30 H 30 H Rate Blood Pressure 117/66 117/66 113/61 O2 Sat by Pulse 93 87 93 Oximetry 12/26/20 12/26/20 12/26/20 09:00 09:15 09:30 Temperature Pulse Rate 86 86 89 Pulse Rate [ From Monitor] Respiratory 30 H 30 H 30 H Rate Blood Pressure 117/68 113/63 108/60 O2 Sat by Pulse 95 94 94 Oximetry 12/26/20 12/26/20 12/26/20 09:45 10:00 10:15 Temperature Pulse Rate 88 87 88 Pulse Rate [ From Monitor] Respiratory 30 H 30 H 30 H Rate Blood Pressure 112/58 105/58 100/58 O2 Sat by Pulse 93 95 95 Oximetry 12/26/20 12/26/20 12/26/20 10:30 10:45 11:10 Temperature Pulse Rate 88 89 87 Pulse Rate [ From Monitor] Respiratory 30 H 30 H 30 H Rate Blood Pressure 113/62 104/56 O2 Sat by Pulse 91 95 96 Oximetry 12/26/20 11:15 Temperature Pulse Rate 85 Pulse Rate [ From Monitor] Respiratory 30 H Rate Blood Pressure 100/55 O2 Sat by Pulse 96 Oximetry Constitutional: lethargic, comatose, other (on vent orally intubated) ENT: other (Now intubated) Effort: other (vent support ) Ascultation: Bilateral: diminished breath sounds, rales, rhonchi, other (coarse BS bilaterally) Percussion: Bilateral: not dull Cardiovascular: regular rate and rhythm (tachy ) Gastrointestinal: soft, non-tender, non-distended Integumentary: normal Extremities: no cyanosis, no edema, pink and warm Neurologic: other (sedated) Psychiatric: other (sedated) CBC and BMP: 12/26/20 05:26 12/26/20 05:26 ABG, PT/INR, D-dimer: ABG ABG pH 7.396 (7.320-7.450) 12/26/20 04:00 POC ABG pCO2 73.4 mmHg (32.0-48.0) H 12/26/20 04:00 ABG pCO2 81.3 mm Hg 12/08/20 04:12 POC ABG pO2 58.8 mmHg (83-108) L 12/26/20 04:00 ABG pO2 69.7 mm Hg (80.0-90.0) L 12/08/20 04:12 POC ABG HCO3 44 12/26/20 04:00 ABG O2 Saturation 91.2 (0-100) 12/26/20 04:00 PT/INR, D-dimer D-Dimer 926.11 ng/mlDDU (0-234) H 11/26/20 06:04 Abnormal lab findings: Abnormal Labs 11/15/20 11/15/20 11/15/20 10:39 10:39 10:39 WBC 14.3 H RBC 5.17 H Hgb Hct RDW Plt Count Lymph % (Auto) 7.8 L [place] % (Auto) 7.6 H Lymph # (Auto) 1.1 L [place] # (Auto) 1.1 H Baso # (Auto) Seg Neutrophils % 83.3 H Seg Neuts % (Manual) Lymphocytes % (Manual) Nucleated RBC % Seg Neutrophils # 11.9 H Seg Neutrophils # Man Lymphocytes # (Manual) D-Dimer ABG pH POC ABG pCO2 POC ABG pO2 ABG pO2 ABG HCO3 ABG O2 Saturation ABG Base Excess ABG Hemoglobin ABG Oxyhemoglobin ABG Sodium ABG Potassium ABG Chloride ABG Glucose Oxyhemoglobin Carboxyhemoglobin Sodium 128 L Potassium Chloride 96.0 L Carbon Dioxide BUN Creatinine 0.7 L Glucose 238 H POC Glucose Hemoglobin A1c Lactic Acid 4.10 H* Calcium 7.0 L Magnesium Ferritin Total Bilirubin 1.40 H AST 49 H ALT 70 H Alkaline Phosphatase Lactate Dehydrogenase 663 H Total Creatine Kinase C-Reactive Protein 19.80 H Total Protein Albumin 2.9 L Triglycerides Arterial Blood Glucose Arterial Blood Ionized Calcium Ur Specific [place] Urine WBC (Auto) Vancomycin Trough Coronavirus (PCR) 11/15/20 11/15/20 11/15/20 10:39 10:39 11:20 WBC RBC Hgb Hct RDW Plt Count Lymph % (Auto) [place] % (Auto) Lymph # (Auto) [place] # (Auto) Baso # (Auto) Seg Neutrophils % Seg Neuts % (Manual) Lymphocytes % (Manual) Nucleated RBC % Seg Neutrophils # Seg Neutrophils # Man Lymphocytes # (Manual) D-Dimer > 06739 H ABG pH POC ABG pCO2 29.9 L POC ABG pO2 137.3 H ABG pO2 ABG HCO3 ABG O2 Saturation ABG Base Excess ABG Hemoglobin ABG Oxyhemoglobin ABG Sodium 126.5 L ABG Potassium ABG Chloride ABG Glucose 248 H Oxyhemoglobin Carboxyhemoglobin Sodium Potassium Chloride Carbon Dioxide BUN Creatinine Glucose POC Glucose Hemoglobin A1c Lactic Acid Calcium Magnesium Ferritin 672.8 H Total Bilirubin AST ALT Alkaline Phosphatase Lactate Dehydrogenase Total Creatine Kinase C-Reactive Protein Total Protein Albumin Triglycerides Arterial Blood Glucose 248 H Arterial Blood Ionized Calcium 4.1 L Ur Specific [place] Urine WBC (Auto) Vancomycin Trough Coronavirus (PCR) 11/15/20 11/15/20 11/16/20 13:41 23:41 01:45 WBC RBC Hgb Hct RDW Plt Count Lymph % (Auto) [place] % (Auto) Lymph # (Auto) [place] # (Auto) Baso # (Auto) Seg Neutrophils % Seg Neuts % (Manual) Lymphocytes % (Manual) Nucleated RBC % Seg Neutrophils # Seg Neutrophils # Man Lymphocytes # (Manual) D-Dimer ABG pH POC ABG pCO2 POC ABG pO2 ABG pO2 ABG HCO3 ABG O2 Saturation ABG Base Excess ABG Hemoglobin ABG Oxyhemoglobin ABG Sodium ABG Potassium ABG Chloride ABG Glucose Oxyhemoglobin Carboxyhemoglobin Sodium Potassium Chloride Carbon Dioxide BUN Creatinine Glucose POC Glucose 284 H Hemoglobin A1c Lactic Acid 2.30 H* Calcium Magnesium Ferritin Total Bilirubin AST ALT Alkaline Phosphatase Lactate Dehydrogenase Total Creatine Kinase C-Reactive Protein Total Protein Albumin Triglycerides Arterial Blood Glucose Arterial Blood Ionized Calcium Ur Specific [place] 1.037 H Urine WBC (Auto) Vancomycin Trough Coronavirus (PCR) 11/16/20 11/16/20 11/16/20 05:29 05:29 05:29 WBC 12.9 H RBC Hgb Hct RDW Plt Count Lymph % (Auto) 4.5 L [place] % (Auto) Lymph # (Auto) 0.6 L [place] # (Auto) Baso # (Auto) 0.2 H Seg Neutrophils % 89.8 H Seg Neuts % (Manual) Lymphocytes % (Manual) Nucleated RBC % Seg Neutrophils # 11.5 H Seg Neutrophils # Man Lymphocytes # (Manual) D-Dimer ABG pH POC ABG pCO2 POC ABG pO2 ABG pO2 ABG HCO3 ABG O2 Saturation ABG Base Excess ABG Hemoglobin ABG Oxyhemoglobin ABG Sodium ABG Potassium ABG Chloride ABG Glucose Oxyhemoglobin Carboxyhemoglobin Sodium 131 L Potassium Chloride Carbon Dioxide 21 L BUN 23 H Creatinine 0.6 L Glucose 342 H POC Glucose Hemoglobin A1c Lactic Acid 2.60 H* Calcium 7.0 L Magnesium Ferritin Total Bilirubin AST ALT Alkaline Phosphatase Lactate Dehydrogenase Total Creatine Kinase C-Reactive Protein Total Protein Albumin 2.4 L Triglycerides Arterial Blood Glucose Arterial Blood Ionized Calcium Ur Specific [place] Urine WBC (Auto) Vancomycin Trough Coronavirus (PCR) 11/16/20 11/16/20 11/16/20 05:29 08:11 12:11 WBC RBC Hgb Hct RDW Plt Count Lymph % (Auto) [place] % (Auto) Lymph # (Auto) [place] # (Auto) Baso # (Auto) Seg Neutrophils % Seg Neuts % (Manual) Lymphocytes % (Manual) Nucleated RBC % Seg Neutrophils # Seg Neutrophils # Man Lymphocytes # (Manual) D-Dimer ABG pH POC ABG pCO2 POC ABG pO2 ABG pO2 ABG HCO3 ABG O2 Saturation ABG Base Excess ABG Hemoglobin ABG Oxyhemoglobin ABG Sodium ABG Potassium ABG Chloride ABG Glucose Oxyhemoglobin Carboxyhemoglobin Sodium Potassium Chloride Carbon Dioxide BUN Creatinine Glucose POC Glucose 329 H 320 H Hemoglobin A1c 11.7 H Lactic Acid Calcium Magnesium Ferritin Total Bilirubin AST ALT Alkaline Phosphatase Lactate Dehydrogenase Total Creatine Kinase C-Reactive Protein Total Protein Albumin Triglycerides Arterial Blood Glucose Arterial Blood Ionized Calcium Ur Specific [place] Urine WBC (Auto) Vancomycin Trough Coronavirus (PCR) 11/16/20 11/16/20 11/16/20 16:13 21:29 Unknown WBC RBC Hgb Hct RDW Plt Count Lymph % (Auto) [place] % (Auto) Lymph # (Auto) [place] # (Auto) Baso # (Auto) Seg Neutrophils % Seg Neuts % (Manual) Lymphocytes % (Manual) Nucleated RBC % Seg Neutrophils # Seg Neutrophils # Man Lymphocytes # (Manual) D-Dimer ABG pH POC ABG pCO2 POC ABG pO2 ABG pO2 ABG HCO3 ABG O2 Saturation ABG Base Excess ABG Hemoglobin ABG Oxyhemoglobin ABG Sodium ABG Potassium ABG Chloride ABG Glucose Oxyhemoglobin Carboxyhemoglobin Sodium Potassium Chloride Carbon Dioxide BUN Creatinine Glucose POC Glucose 257 H 376 H Hemoglobin A1c Lactic Acid Calcium Magnesium Ferritin Total Bilirubin AST ALT Alkaline Phosphatase Lactate Dehydrogenase Total Creatine Kinase C-Reactive Protein Total Protein Albumin Triglycerides Arterial Blood Glucose Arterial Blood Ionized Calcium Ur Specific [place] Urine WBC (Auto) Vancomycin Trough Coronavirus (PCR) Positive A 11/17/20 11/17/20 11/17/20 07:42 12:07 17:25 WBC RBC Hgb Hct RDW Plt Count Lymph % (Auto) [place] % (Auto) Lymph # (Auto) [place] # (Auto) Baso # (Auto) Seg Neutrophils % Seg Neuts % (Manual) Lymphocytes % (Manual) Nucleated RBC % Seg Neutrophils # Seg Neutrophils # Man Lymphocytes # (Manual) D-Dimer ABG pH POC ABG pCO2 POC ABG pO2 ABG pO2 ABG HCO3 ABG O2 Saturation ABG Base Excess ABG Hemoglobin ABG Oxyhemoglobin ABG Sodium ABG Potassium ABG Chloride ABG Glucose Oxyhemoglobin Carboxyhemoglobin Sodium Potassium Chloride Carbon Dioxide BUN Creatinine Glucose POC Glucose 231 H 380 H 302 H Hemoglobin A1c Lactic Acid Calcium Magnesium Ferritin Total Bilirubin AST ALT Alkaline Phosphatase Lactate Dehydrogenase Total Creatine Kinase C-Reactive Protein Total Protein Albumin Triglycerides Arterial Blood Glucose Arterial Blood Ionized Calcium Ur Specific [place] Urine WBC (Auto) Vancomycin Trough Coronavirus (PCR) 11/17/20 11/18/20 11/18/20 21:53 04:25 07:45 WBC RBC Hgb Hct RDW Plt Count Lymph % (Auto) [place] % (Auto) Lymph # (Auto) [place] # (Auto) Baso # (Auto) Seg Neutrophils % Seg Neuts % (Manual) Lymphocytes % (Manual) Nucleated RBC % Seg Neutrophils # Seg Neutrophils # Man Lymphocytes # (Manual) D-Dimer ABG pH POC ABG pCO2 POC ABG pO2 ABG pO2 ABG HCO3 ABG O2 Saturation ABG Base Excess ABG Hemoglobin ABG Oxyhemoglobin ABG Sodium ABG Potassium ABG Chloride ABG Glucose Oxyhemoglobin Carboxyhemoglobin Sodium 136 L Potassium Chloride Carbon Dioxide BUN 24 H Creatinine 0.6 L Glucose 212 H POC Glucose 293 H 216 H Hemoglobin A1c Lactic Acid Calcium 7.4 L Magnesium Ferritin Total Bilirubin AST 41 H ALT Alkaline Phosphatase 142 H Lactate Dehydrogenase Total Creatine Kinase C-Reactive Protein Total Protein Albumin 2.3 L Triglycerides Arterial Blood Glucose Arterial Blood Ionized Calcium Ur Specific [place] Urine WBC (Auto) Vancomycin Trough Coronavirus (PCR) 11/18/20 11/18/20 11/18/20 12:28 15:58 21:37 WBC RBC Hgb Hct RDW Plt Count Lymph % (Auto) [place] % (Auto) Lymph # (Auto) [place] # (Auto) Baso # (Auto) Seg Neutrophils % Seg Neuts % (Manual) Lymphocytes % (Manual) Nucleated RBC % Seg Neutrophils # Seg Neutrophils # Man Lymphocytes # (Manual) D-Dimer ABG pH POC ABG pCO2 POC ABG pO2 ABG pO2 ABG HCO3 ABG O2 Saturation ABG Base Excess ABG Hemoglobin ABG Oxyhemoglobin ABG Sodium ABG Potassium ABG Chloride ABG Glucose Oxyhemoglobin Carboxyhemoglobin Sodium Potassium Chloride Carbon Dioxide BUN Creatinine Glucose POC Glucose 165 H 220 H 311 H Hemoglobin A1c Lactic Acid Calcium Magnesium Ferritin Total Bilirubin AST ALT Alkaline Phosphatase Lactate Dehydrogenase Total Creatine Kinase C-Reactive Protein Total Protein Albumin Triglycerides Arterial Blood Glucose Arterial Blood Ionized Calcium Ur Specific [place] Urine WBC (Auto) Vancomycin Trough Coronavirus (PCR) 11/19/20 11/19/20 11/19/20 05:35 07:40 12:39 WBC RBC Hgb Hct RDW Plt Count Lymph % (Auto) [place] % (Auto) Lymph # (Auto) [place] # (Auto) Baso # (Auto) Seg Neutrophils % Seg Neuts % (Manual) Lymphocytes % (Manual) Nucleated RBC % Seg Neutrophils # Seg Neutrophils # Man Lymphocytes # (Manual) D-Dimer ABG pH POC ABG pCO2 POC ABG pO2 ABG pO2 ABG HCO3 ABG O2 Saturation ABG Base Excess ABG Hemoglobin ABG Oxyhemoglobin ABG Sodium ABG Potassium ABG Chloride ABG Glucose Oxyhemoglobin Carboxyhemoglobin Sodium 132 L Potassium Chloride Carbon Dioxide BUN 25 H Creatinine 0.5 L Glucose 179 H POC Glucose 149 H 306 H Hemoglobin A1c Lactic Acid Calcium 7.5 L Magnesium Ferritin Total Bilirubin AST ALT Alkaline Phosphatase 139 H Lactate Dehydrogenase Total Creatine Kinase C-Reactive Protein Total Protein Albumin 2.4 L Triglycerides Arterial Blood Glucose Arterial Blood Ionized Calcium Ur Specific [place] Urine WBC (Auto) Vancomycin Trough Coronavirus (PCR) 11/19/20 11/19/20 11/20/20 16:17 21:25 08:30 WBC RBC Hgb Hct RDW Plt Count Lymph % (Auto) [place] % (Auto) Lymph # (Auto) [place] # (Auto) Baso # (Auto) Seg Neutrophils % Seg Neuts % (Manual) Lymphocytes % (Manual) Nucleated RBC % Seg Neutrophils # Seg Neutrophils # Man Lymphocytes # (Manual) D-Dimer ABG pH POC ABG pCO2 POC ABG pO2 ABG pO2 ABG HCO3 ABG O2 Saturation ABG Base Excess ABG Hemoglobin ABG Oxyhemoglobin ABG Sodium ABG Potassium ABG Chloride ABG Glucose Oxyhemoglobin Carboxyhemoglobin Sodium Potassium Chloride Carbon Dioxide BUN Creatinine Glucose POC Glucose 364 H 347 H 141 H Hemoglobin A1c Lactic Acid Calcium Magnesium Ferritin Total Bilirubin AST ALT Alkaline Phosphatase Lactate Dehydrogenase Total Creatine Kinase C-Reactive Protein Total Protein Albumin Triglycerides Arterial Blood Glucose Arterial Blood Ionized Calcium Ur Specific [place] Urine WBC (Auto) Vancomycin Trough Coronavirus (PCR) 11/20/20 11/20/20 11/20/20 08:50 11:32 16:19 WBC RBC Hgb Hct RDW Plt Count Lymph % (Auto) [place] % (Auto) Lymph # (Auto) [place] # (Auto) Baso # (Auto) Seg Neutrophils % Seg Neuts % (Manual) Lymphocytes % (Manual) Nucleated RBC % Seg Neutrophils # Seg Neutrophils # Man Lymphocytes # (Manual) D-Dimer ABG pH POC ABG pCO2 POC ABG pO2 ABG pO2 ABG HCO3 ABG O2 Saturation ABG Base Excess ABG Hemoglobin ABG Oxyhemoglobin ABG Sodium ABG Potassium ABG Chloride ABG Glucose Oxyhemoglobin Carboxyhemoglobin Sodium 132 L Potassium Chloride 97.6 L Carbon Dioxide BUN 26 H Creatinine 0.5 L Glucose 201 H POC Glucose 296 H 327 H Hemoglobin A1c Lactic Acid Calcium 7.9 L Magnesium Ferritin Total Bilirubin AST ALT Alkaline Phosphatase 137 H Lactate Dehydrogenase Total Creatine Kinase C-Reactive Protein Total Protein Albumin 2.6 L Triglycerides Arterial Blood Glucose Arterial Blood Ionized Calcium Ur Specific [place] Urine WBC (Auto) Vancomycin Trough Coronavirus (PCR) 11/20/20 11/21/20 11/21/20 22:09 07:59 13:51 WBC RBC Hgb Hct RDW Plt Count Lymph % (Auto) [place] % (Auto) Lymph # (Auto) [place] # (Auto) Baso # (Auto) Seg Neutrophils % Seg Neuts % (Manual) Lymphocytes % (Manual) Nucleated RBC % Seg Neutrophils # Seg Neutrophils # Man Lymphocytes # (Manual) D-Dimer ABG pH POC ABG pCO2 POC ABG pO2 ABG pO2 ABG HCO3 ABG O2 Saturation ABG Base Excess ABG Hemoglobin ABG Oxyhemoglobin ABG Sodium ABG Potassium ABG Chloride ABG Glucose Oxyhemoglobin Carboxyhemoglobin Sodium Potassium Chloride Carbon Dioxide BUN Creatinine Glucose POC Glucose 311 H 218 H 304 H Hemoglobin A1c Lactic Acid Calcium Magnesium Ferritin Total Bilirubin AST ALT Alkaline Phosphatase Lactate Dehydrogenase Total Creatine Kinase C-Reactive Protein Total Protein Albumin Triglycerides Arterial Blood Glucose Arterial Blood Ionized Calcium Ur Specific [place] Urine WBC (Auto) Vancomycin Trough Coronavirus (PCR) 11/21/20 11/21/20 11/21/20 16:09 21:34 23:00 WBC RBC Hgb Hct RDW Plt Count Lymph % (Auto) [place] % (Auto) Lymph # (Auto) [place] # (Auto) Baso # (Auto) Seg Neutrophils % Seg Neuts % (Manual) Lymphocytes % (Manual) Nucleated RBC % Seg Neutrophils # Seg Neutrophils # Man Lymphocytes # (Manual) D-Dimer ABG pH 7.206 L POC ABG pCO2 59.3 H POC ABG pO2 76.7 L ABG pO2 ABG HCO3 ABG O2 Saturation ABG Base Excess ABG Hemoglobin ABG Oxyhemoglobin ABG Sodium 133.1 L ABG Potassium ABG Chloride ABG Glucose 320 H Oxyhemoglobin Carboxyhemoglobin Sodium Potassium Chloride Carbon Dioxide BUN Creatinine Glucose POC Glucose 239 H 279 H Hemoglobin A1c Lactic Acid Calcium Magnesium Ferritin Total Bilirubin AST ALT Alkaline Phosphatase Lactate Dehydrogenase Total Creatine Kinase C-Reactive Protein Total Protein Albumin Triglycerides Arterial Blood Glucose 320 H Arterial Blood Ionized Calcium Ur Specific [place] Urine WBC (Auto) Vancomycin Trough Coronavirus (PCR) 11/22/20 11/22/20 11/22/20 04:52 04:52 04:52 WBC RBC Hgb Hct RDW Plt Count Lymph % (Auto) [place] % (Auto) Lymph # (Auto) [place] # (Auto) Baso # (Auto) Seg Neutrophils % Seg Neuts % (Manual) Lymphocytes % (Manual) Nucleated RBC % Seg Neutrophils # Seg Neutrophils # Man Lymphocytes # (Manual) D-Dimer 1858.36 H ABG pH POC ABG pCO2 POC ABG pO2 ABG pO2 ABG HCO3 ABG O2 Saturation ABG Base Excess ABG Hemoglobin ABG Oxyhemoglobin ABG Sodium ABG Potassium ABG Chloride ABG Glucose Oxyhemoglobin Carboxyhemoglobin Sodium Potassium Chloride Carbon Dioxide BUN Creatinine Glucose POC Glucose Hemoglobin A1c Lactic Acid Calcium Magnesium Ferritin 734.2 H Total Bilirubin AST ALT Alkaline Phosphatase Lactate Dehydrogenase 404 H Total Creatine Kinase C-Reactive Protein 2.80 H Total Protein Albumin Triglycerides Arterial Blood Glucose Arterial Blood Ionized Calcium Ur Specific [place] Urine WBC (Auto) Vancomycin Trough Coronavirus (PCR) 11/22/20 11/22/20 11/22/20 05:12 05:39 11:50 WBC RBC Hgb Hct RDW Plt Count Lymph % (Auto) [place] % (Auto) Lymph # (Auto) [place] # (Auto) Baso # (Auto) Seg Neutrophils % Seg Neuts % (Manual) Lymphocytes % (Manual) Nucleated RBC % Seg Neutrophils # Seg Neutrophils # Man Lymphocytes # (Manual) D-Dimer ABG pH POC ABG pCO2 POC ABG pO2 51.0 L ABG pO2 ABG HCO3 ABG O2 Saturation ABG Base Excess ABG Hemoglobin ABG Oxyhemoglobin ABG Sodium 131.2 L ABG Potassium 4.6 H ABG Chloride ABG Glucose 317 H Oxyhemoglobin Carboxyhemoglobin Sodium Potassium Chloride Carbon Dioxide BUN Creatinine Glucose POC Glucose 340 H 417 H Hemoglobin A1c Lactic Acid Calcium Magnesium Ferritin Total Bilirubin AST ALT Alkaline Phosphatase Lactate Dehydrogenase Total Creatine Kinase C-Reactive Protein Total Protein Albumin Triglycerides Arterial Blood Glucose 317 H Arterial Blood Ionized Calcium 4.4 L Ur Specific [place] Urine WBC (Auto) Vancomycin Trough Coronavirus (PCR) 11/22/20 11/22/20 11/22/20 12:22 12:22 17:10 WBC 14.4 H RBC Hgb Hct RDW Plt Count Lymph % (Auto) [place] % (Auto) Lymph # (Auto) [place] # (Auto) Baso # (Auto) Seg Neutrophils % Seg Neuts % (Manual) 98.0 H Lymphocytes % (Manual) Nucleated RBC % Seg Neutrophils # Seg Neutrophils # Man 14.1 H Lymphocytes # (Manual) 0.0 L D-Dimer ABG pH POC ABG pCO2 POC ABG pO2 ABG pO2 ABG HCO3 ABG O2 Saturation ABG Base Excess ABG Hemoglobin ABG Oxyhemoglobin ABG Sodium ABG Potassium ABG Chloride ABG Glucose Oxyhemoglobin Carboxyhemoglobin Sodium 132 L Potassium Chloride Carbon Dioxide BUN 36 H Creatinine 0.6 L Glucose 219 H POC Glucose 157 H Hemoglobin A1c Lactic Acid Calcium 7.2 L Magnesium Ferritin Total Bilirubin AST ALT Alkaline Phosphatase Lactate Dehydrogenase Total Creatine Kinase C-Reactive Protein Total Protein Albumin Triglycerides Arterial Blood Glucose Arterial Blood Ionized Calcium Ur Specific [place] Urine WBC (Auto) Vancomycin Trough Coronavirus (PCR) 11/22/20 11/22/20 11/22/20 18:33 21:44 23:47 WBC RBC Hgb Hct RDW Plt Count Lymph % (Auto) [place] % (Auto) Lymph # (Auto) [place] # (Auto) Baso # (Auto) Seg Neutrophils % Seg Neuts % (Manual) Lymphocytes % (Manual) Nucleated RBC % Seg Neutrophils # Seg Neutrophils # Man Lymphocytes # (Manual) D-Dimer ABG pH POC ABG pCO2 POC ABG pO2 60.8 L ABG pO2 ABG HCO3 ABG O2 Saturation ABG Base Excess ABG Hemoglobin ABG Oxyhemoglobin 88.1 L ABG Sodium 135.1 L ABG Potassium ABG Chloride ABG Glucose 141 H Oxyhemoglobin Carboxyhemoglobin Sodium Potassium Chloride Carbon Dioxide BUN Creatinine Glucose POC Glucose 117 H 123 H Hemoglobin A1c Lactic Acid Calcium Magnesium Ferritin Total Bilirubin AST ALT Alkaline Phosphatase Lactate Dehydrogenase Total Creatine Kinase C-Reactive Protein Total Protein Albumin Triglycerides Arterial Blood Glucose 141 H Arterial Blood Ionized Calcium Ur Specific [place] Urine WBC (Auto) Vancomycin Trough Coronavirus (PCR) 11/23/20 11/23/20 11/23/20 04:00 04:00 05:23 WBC 14.4 H RBC Hgb Hct RDW Plt Count Lymph % (Auto) [place] % (Auto) Lymph # (Auto) [place] # (Auto) Baso # (Auto) Seg Neutrophils % Seg Neuts % (Manual) Lymphocytes % (Manual) Nucleated RBC % Seg Neutrophils # Seg Neutrophils # Man Lymphocytes # (Manual) D-Dimer ABG pH POC ABG pCO2 POC ABG pO2 ABG pO2 ABG HCO3 ABG O2 Saturation ABG Base Excess ABG Hemoglobin ABG Oxyhemoglobin ABG Sodium ABG Potassium ABG Chloride ABG Glucose Oxyhemoglobin Carboxyhemoglobin Sodium 136 L Potassium Chloride Carbon Dioxide BUN 33 H Creatinine 0.6 L Glucose 115 H POC Glucose 173 H Hemoglobin A1c Lactic Acid Calcium 7.1 L Magnesium Ferritin Total Bilirubin AST 64 H ALT 75 H Alkaline Phosphatase Lactate Dehydrogenase Total Creatine Kinase C-Reactive Protein Total Protein 5.9 L D Albumin 2.4 L Triglycerides Arterial Blood Glucose Arterial Blood Ionized Calcium Ur Specific [place] Urine WBC (Auto) Vancomycin Trough Coronavirus (PCR) 11/23/20 11/23/20 11/23/20 05:40 11:27 17:10 WBC RBC Hgb Hct RDW Plt Count Lymph % (Auto) [place] % (Auto) Lymph # (Auto) [place] # (Auto) Baso # (Auto) Seg Neutrophils % Seg Neuts % (Manual) Lymphocytes % (Manual) Nucleated RBC % Seg Neutrophils # Seg Neutrophils # Man Lymphocytes # (Manual) D-Dimer ABG pH POC ABG pCO2 POC ABG pO2 56.5 L ABG pO2 ABG HCO3 ABG O2 Saturation ABG Base Excess ABG Hemoglobin ABG Oxyhemoglobin ABG Sodium ABG Potassium ABG Chloride 109.0 H ABG Glucose 114 H Oxyhemoglobin Carboxyhemoglobin Sodium Potassium Chloride Carbon Dioxide BUN Creatinine Glucose POC Glucose 114 H 136 H Hemoglobin A1c Lactic Acid Calcium Magnesium Ferritin Total Bilirubin AST ALT Alkaline Phosphatase Lactate Dehydrogenase Total Creatine Kinase C-Reactive Protein Total Protein Albumin Triglycerides Arterial Blood Glucose 114 H Arterial Blood Ionized Calcium 4.5 L Ur Specific [place] Urine WBC (Auto) Vancomycin Trough Coronavirus (PCR) 11/24/20 11/24/20 11/24/20 05:14 05:14 05:14 WBC RBC Hgb Hct RDW Plt Count Lymph % (Auto) [place] % (Auto) Lymph # (Auto) [place] # (Auto) Baso # (Auto) Seg Neutrophils % Seg Neuts % (Manual) Lymphocytes % (Manual) Nucleated RBC % Seg Neutrophils # Seg Neutrophils # Man Lymphocytes # (Manual) D-Dimer 1433.39 H ABG pH POC ABG pCO2 POC ABG pO2 ABG pO2 ABG HCO3 ABG O2 Saturation ABG Base Excess ABG Hemoglobin ABG Oxyhemoglobin ABG Sodium ABG Potassium ABG Chloride ABG Glucose Oxyhemoglobin Carboxyhemoglobin Sodium Potassium Chloride Carbon Dioxide BUN Creatinine Glucose POC Glucose Hemoglobin A1c Lactic Acid Calcium Magnesium Ferritin 997.5 H Total Bilirubin AST ALT Alkaline Phosphatase Lactate Dehydrogenase 463 H Total Creatine Kinase C-Reactive Protein Total Protein Albumin Triglycerides Arterial Blood Glucose Arterial Blood Ionized Calcium Ur Specific [place] Urine WBC (Auto) Vancomycin Trough Coronavirus (PCR) 11/24/20 11/24/20 11/24/20 05:31 05:36 12:05 WBC RBC Hgb Hct RDW Plt Count Lymph % (Auto) [place] % (Auto) Lymph # (Auto) [place] # (Auto) Baso # (Auto) Seg Neutrophils % Seg Neuts % (Manual) Lymphocytes % (Manual) Nucleated RBC % Seg Neutrophils # Seg Neutrophils # Man Lymphocytes # (Manual) D-Dimer ABG pH POC ABG pCO2 POC ABG pO2 57.2 L ABG pO2 ABG HCO3 ABG O2 Saturation ABG Base Excess ABG Hemoglobin ABG Oxyhemoglobin ABG Sodium ABG Potassium ABG Chloride ABG Glucose 180 H Oxyhemoglobin Carboxyhemoglobin Sodium Potassium Chloride Carbon Dioxide BUN Creatinine Glucose POC Glucose 199 H 143 H Hemoglobin A1c Lactic Acid Calcium Magnesium Ferritin Total Bilirubin AST ALT Alkaline Phosphatase Lactate Dehydrogenase Total Creatine Kinase C-Reactive Protein Total Protein Albumin Triglycerides Arterial Blood Glucose 180 H Arterial Blood Ionized Calcium 4.5 L Ur Specific [place] Urine WBC (Auto) Vancomycin Trough Coronavirus (PCR) 11/24/20 11/24/20 11/24/20 12:14 17:47 23:47 WBC RBC Hgb Hct RDW Plt Count Lymph % (Auto) [place] % (Auto) Lymph # (Auto) [place] # (Auto) Baso # (Auto) Seg Neutrophils % Seg Neuts % (Manual) Lymphocytes % (Manual) Nucleated RBC % Seg Neutrophils # Seg Neutrophils # Man Lymphocytes # (Manual) D-Dimer ABG pH 7.261 L POC ABG pCO2 59.7 H POC ABG pO2 75.7 L ABG pO2 ABG HCO3 ABG O2 Saturation ABG Base Excess ABG Hemoglobin ABG Oxyhemoglobin 92.5 L ABG Sodium ABG Potassium ABG Chloride 108.0 H ABG Glucose 150 H Oxyhemoglobin Carboxyhemoglobin Sodium Potassium Chloride Carbon Dioxide BUN Creatinine Glucose POC Glucose 223 H 179 H Hemoglobin A1c Lactic Acid Calcium Magnesium Ferritin Total Bilirubin AST ALT Alkaline Phosphatase Lactate Dehydrogenase Total Creatine Kinase C-Reactive Protein Total Protein Albumin Triglycerides Arterial Blood Glucose 150 H Arterial Blood Ionized Calcium Ur Specific [place] Urine WBC (Auto) Vancomycin Trough Coronavirus (PCR) 11/25/20 11/25/20 11/25/20 03:29 05:07 05:15 WBC 13.9 H RBC Hgb Hct RDW Plt Count Lymph % (Auto) [place] % (Auto) Lymph # (Auto) [place] # (Auto) Baso # (Auto) Seg Neutrophils % Seg Neuts % (Manual) 97.0 H Lymphocytes % (Manual) Nucleated RBC % Seg Neutrophils # Seg Neutrophils # Man 13.5 H Lymphocytes # (Manual) 0.0 L D-Dimer ABG pH 7.272 L POC ABG pCO2 69.0 H POC ABG pO2 132.9 H ABG pO2 ABG HCO3 ABG O2 Saturation ABG Base Excess ABG Hemoglobin ABG Oxyhemoglobin ABG Sodium ABG Potassium ABG Chloride ABG Glucose 174 H Oxyhemoglobin Carboxyhemoglobin Sodium Potassium Chloride Carbon Dioxide BUN Creatinine Glucose POC Glucose 168 H Hemoglobin A1c Lactic Acid Calcium Magnesium Ferritin Total Bilirubin AST ALT Alkaline Phosphatase Lactate Dehydrogenase Total Creatine Kinase C-Reactive Protein Total Protein Albumin Triglycerides Arterial Blood Glucose 174 H Arterial Blood Ionized Calcium Ur Specific [place] Urine WBC (Auto) Vancomycin Trough Coronavirus (PCR) 11/25/20 11/25/20 11/25/20 05:15 11:25 17:35 WBC RBC Hgb Hct RDW Plt Count Lymph % (Auto) [place] % (Auto) Lymph # (Auto) [place] # (Auto) Baso # (Auto) Seg Neutrophils % Seg Neuts % (Manual) Lymphocytes % (Manual) Nucleated RBC % Seg Neutrophils # Seg Neutrophils # Man Lymphocytes # (Manual) D-Dimer ABG pH POC ABG pCO2 POC ABG pO2 ABG pO2 ABG HCO3 ABG O2 Saturation ABG Base Excess ABG Hemoglobin ABG Oxyhemoglobin ABG Sodium ABG Potassium ABG Chloride ABG Glucose Oxyhemoglobin Carboxyhemoglobin Sodium Potassium Chloride Carbon Dioxide BUN 29 H Creatinine 0.5 L Glucose 161 H POC Glucose 224 H 228 H Hemoglobin A1c Lactic Acid Calcium 7.8 L Magnesium Ferritin Total Bilirubin AST 89 H ALT 129 H Alkaline Phosphatase Lactate Dehydrogenase Total Creatine Kinase C-Reactive Protein Total Protein 5.8 L Albumin 2.5 L Triglycerides Arterial Blood Glucose Arterial Blood Ionized Calcium Ur Specific [place] Urine WBC (Auto) Vancomycin Trough Coronavirus (PCR) 11/25/20 11/25/20 11/26/20 20:45 23:28 04:00 WBC RBC Hgb Hct RDW Plt Count Lymph % (Auto) [place] % (Auto) Lymph # (Auto) [place] # (Auto) Baso # (Auto) Seg Neutrophils % Seg Neuts % (Manual) Lymphocytes % (Manual) Nucleated RBC % Seg Neutrophils # Seg Neutrophils # Man Lymphocytes # (Manual) D-Dimer ABG pH POC ABG pCO2 POC ABG pO2 ABG pO2 ABG HCO3 ABG O2 Saturation ABG Base Excess ABG Hemoglobin ABG Oxyhemoglobin ABG Sodium ABG Potassium ABG Chloride ABG Glucose Oxyhemoglobin Carboxyhemoglobin Sodium Potassium Chloride Carbon Dioxide BUN Creatinine Glucose POC Glucose 177 H 243 H Hemoglobin A1c Lactic Acid Calcium Magnesium Ferritin 778.8 H Total Bilirubin AST ALT Alkaline Phosphatase Lactate Dehydrogenase Total Creatine Kinase C-Reactive Protein Total Protein Albumin Triglycerides Arterial Blood Glucose Arterial Blood Ionized Calcium Ur Specific [place] Urine WBC (Auto) Vancomycin Trough Coronavirus (PCR) 11/26/20 11/26/20 11/26/20 04:00 05:34 06:04 WBC RBC Hgb Hct RDW Plt Count Lymph % (Auto) [place] % (Auto) Lymph # (Auto) [place] # (Auto) Baso # (Auto) Seg Neutrophils % Seg Neuts % (Manual) Lymphocytes % (Manual) Nucleated RBC % Seg Neutrophils # Seg Neutrophils # Man Lymphocytes # (Manual) D-Dimer 926.11 H ABG pH POC ABG pCO2 POC ABG pO2 ABG pO2 ABG HCO3 ABG O2 Saturation ABG Base Excess ABG Hemoglobin ABG Oxyhemoglobin ABG Sodium ABG Potassium ABG Chloride ABG Glucose Oxyhemoglobin Carboxyhemoglobin Sodium Potassium Chloride Carbon Dioxide 39 H D BUN 30 H Creatinine 0.5 L Glucose 193 H POC Glucose 178 H Hemoglobin A1c Lactic Acid Calcium 7.7 L Magnesium Ferritin Total Bilirubin AST 65 H ALT 132 H Alkaline Phosphatase Lactate Dehydrogenase 288 H Total Creatine Kinase C-Reactive Protein 1.40 H Total Protein 5.7 L Albumin 2.4 L Triglycerides Arterial Blood Glucose Arterial Blood Ionized Calcium Ur Specific [place] Urine WBC (Auto) Vancomycin Trough Coronavirus (PCR) 11/26/20 11/26/20 11/26/20 06:04 08:47 11:20 WBC 12.4 H RBC Hgb Hct RDW Plt Count Lymph % (Auto) [place] % (Auto) Lymph # (Auto) [place] # (Auto) Baso # (Auto) Seg Neutrophils % Seg Neuts % (Manual) 98.0 H Lymphocytes % (Manual) 1.0 L Nucleated RBC % Seg Neutrophils # Seg Neutrophils # Man 12.2 H Lymphocytes # (Manual) 0.1 L D-Dimer ABG pH POC ABG pCO2 75.2 H POC ABG pO2 61.9 L ABG pO2 ABG HCO3 ABG O2 Saturation ABG Base Excess ABG Hemoglobin ABG Oxyhemoglobin 90.3 L ABG Sodium ABG Potassium ABG Chloride ABG Glucose 243 H Oxyhemoglobin Carboxyhemoglobin Sodium Potassium Chloride Carbon Dioxide BUN Creatinine Glucose POC Glucose 255 H Hemoglobin A1c Lactic Acid Calcium Magnesium Ferritin Total Bilirubin AST ALT Alkaline Phosphatase Lactate Dehydrogenase Total Creatine Kinase C-Reactive Protein Total Protein Albumin Triglycerides Arterial Blood Glucose 243 H Arterial Blood Ionized Calcium Ur Specific [place] Urine WBC (Auto) Vancomycin Trough Coronavirus (PCR) 11/26/20 11/26/20 11/26/20 16:20 17:15 23:41 WBC RBC Hgb Hct RDW Plt Count Lymph % (Auto) [place] % (Auto) Lymph # (Auto) [place] # (Auto) Baso # (Auto) Seg Neutrophils % Seg Neuts % (Manual) Lymphocytes % (Manual) Nucleated RBC % Seg Neutrophils # Seg Neutrophils # Man Lymphocytes # (Manual) D-Dimer ABG pH POC ABG pCO2 66.6 H POC ABG pO2 78.1 L ABG pO2 ABG HCO3 ABG O2 Saturation ABG Base Excess ABG Hemoglobin ABG Oxyhemoglobin ABG Sodium ABG Potassium ABG Chloride ABG Glucose 244 H Oxyhemoglobin Carboxyhemoglobin Sodium Potassium Chloride Carbon Dioxide BUN Creatinine Glucose POC Glucose 219 H 210 H Hemoglobin A1c Lactic Acid Calcium Magnesium Ferritin Total Bilirubin AST ALT Alkaline Phosphatase Lactate Dehydrogenase Total Creatine Kinase C-Reactive Protein Total Protein Albumin Triglycerides Arterial Blood Glucose 244 H Arterial Blood Ionized Calcium Ur Specific [place] Urine WBC (Auto) Vancomycin Trough Coronavirus (PCR) 11/27/20 11/27/20 11/27/20 04:46 05:38 06:25 WBC 13.8 H RBC Hgb Hct RDW Plt Count Lymph % (Auto) 2.0 L [place] % (Auto) Lymph # (Auto) 0.3 L [place] # (Auto) Baso # (Auto) Seg Neutrophils % Seg Neuts % (Manual) 96.0 H Lymphocytes % (Manual) Nucleated RBC % Seg Neutrophils # 12.7 H Seg Neutrophils # Man 13.2 H Lymphocytes # (Manual) 0.0 L D-Dimer ABG pH POC ABG pCO2 63.0 H POC ABG pO2 53.6 L ABG pO2 ABG HCO3 ABG O2 Saturation ABG Base Excess ABG Hemoglobin ABG Oxyhemoglobin 87.8 L ABG Sodium 115.4 L ABG Potassium ABG Chloride ABG Glucose 219 H Oxyhemoglobin Carboxyhemoglobin Sodium Potassium Chloride Carbon Dioxide BUN Creatinine Glucose POC Glucose 227 H Hemoglobin A1c Lactic Acid Calcium Magnesium Ferritin Total Bilirubin AST ALT Alkaline Phosphatase Lactate Dehydrogenase Total Creatine Kinase C-Reactive Protein Total Protein Albumin Triglycerides Arterial Blood Glucose 219 H Arterial Blood Ionized Calcium Ur Specific [place] Urine WBC (Auto) Vancomycin Trough Coronavirus (PCR) 11/27/20 11/27/20 11/27/20 06:25 18:05 23:29 WBC RBC Hgb Hct RDW Plt Count Lymph % (Auto) [place] % (Auto) Lymph # (Auto) [place] # (Auto) Baso # (Auto) Seg Neutrophils % Seg Neuts % (Manual) Lymphocytes % (Manual) Nucleated RBC % Seg Neutrophils # Seg Neutrophils # Man Lymphocytes # (Manual) D-Dimer ABG pH POC ABG pCO2 POC ABG pO2 ABG pO2 ABG HCO3 ABG O2 Saturation ABG Base Excess ABG Hemoglobin ABG Oxyhemoglobin ABG Sodium ABG Potassium ABG Chloride ABG Glucose Oxyhemoglobin Carboxyhemoglobin Sodium Potassium Chloride Carbon Dioxide 38 H BUN 34 H Creatinine 0.4 L Glucose 243 H POC Glucose 329 H 227 H Hemoglobin A1c Lactic Acid Calcium 7.9 L Magnesium Ferritin Total Bilirubin AST 50 H ALT 110 H Alkaline Phosphatase Lactate Dehydrogenase Total Creatine Kinase C-Reactive Protein Total Protein 6.1 L Albumin 2.4 L Triglycerides Arterial Blood Glucose Arterial Blood Ionized Calcium Ur Specific [place] Urine WBC (Auto) Vancomycin Trough Coronavirus (PCR) 11/28/20 11/28/2011/28/21 03:45 03:45 03:46 WBC 12.2 H RBC Hgb Hct RDW Plt Count Lymph % (Auto) [place] % (Auto) Lymph # (Auto) [place] # (Auto) Baso # (Auto) Seg Neutrophils % Seg Neuts % (Manual) 93.0 H Lymphocytes % (Manual) 2.0 L Nucleated RBC % Seg Neutrophils # Seg Neutrophils # Man 11.3 H Lymphocytes # (Manual) 0.2 L D-Dimer ABG pH POC ABG pCO2 68.4 H POC ABG pO2 55.4 L ABG pO2 ABG HCO3 ABG O2 Saturation ABG Base Excess ABG Hemoglobin ABG Oxyhemoglobin ABG Sodium ABG Potassium ABG Chloride ABG Glucose 197 H Oxyhemoglobin Carboxyhemoglobin Sodium Potassium Chloride Carbon Dioxide 36 H BUN 37 H Creatinine 0.4 L Glucose 194 H POC Glucose Hemoglobin A1c Lactic Acid Calcium 8.1 L Magnesium Ferritin Total Bilirubin AST ALT 86 H Alkaline Phosphatase Lactate Dehydrogenase Total Creatine Kinase C-Reactive Protein Total Protein 6.0 L Albumin 2.3 L Triglycerides Arterial Blood Glucose 197 H Arterial Blood Ionized Calcium Ur Specific [place] Urine WBC (Auto) Vancomycin Trough Coronavirus (PCR) 11/28/20 11/28/20 11/29/20 05:24 12:21 04:41 WBC RBC Hgb Hct RDW Plt Count Lymph % (Auto) [place] % (Auto) Lymph # (Auto) [place] # (Auto) Baso # (Auto) Seg Neutrophils % Seg Neuts % (Manual) Lymphocytes % (Manual) Nucleated RBC % Seg Neutrophils # Seg Neutrophils # Man Lymphocytes # (Manual) D-Dimer ABG pH POC ABG pCO2 55.1 H POC ABG pO2 53.6 L ABG pO2 ABG HCO3 ABG O2 Saturation ABG Base Excess ABG Hemoglobin ABG Oxyhemoglobin 87.1 L ABG Sodium 131.2 L ABG Potassium ABG Chloride ABG Glucose 164 H Oxyhemoglobin Carboxyhemoglobin Sodium Potassium Chloride Carbon Dioxide BUN Creatinine Glucose POC Glucose 173 H 126 H Hemoglobin A1c Lactic Acid Calcium Magnesium Ferritin Total Bilirubin AST ALT Alkaline Phosphatase Lactate Dehydrogenase Total Creatine Kinase C-Reactive Protein Total Protein Albumin Triglycerides Arterial Blood Glucose 164 H Arterial Blood Ionized Calcium 4.4 L Ur Specific [place] Urine WBC (Auto) Vancomycin Trough Coronavirus (PCR) 11/29/20 11/29/20 11/29/20 05:29 12:41 13:28 WBC RBC Hgb Hct RDW Plt Count Lymph % (Auto) [place] % (Auto) Lymph # (Auto) [place] # (Auto) Baso # (Auto) Seg Neutrophils % Seg Neuts % (Manual) Lymphocytes % (Manual) Nucleated RBC % Seg Neutrophils # Seg Neutrophils # Man Lymphocytes # (Manual) D-Dimer ABG pH POC ABG pCO2 POC ABG pO2 ABG pO2 ABG HCO3 ABG O2 Saturation ABG Base Excess ABG Hemoglobin ABG Oxyhemoglobin ABG Sodium ABG Potassium ABG Chloride ABG Glucose Oxyhemoglobin Carboxyhemoglobin Sodium Potassium Chloride Carbon Dioxide 40 H BUN 32 H Creatinine 0.4 L Glucose 274 H POC Glucose 173 H 257 H Hemoglobin A1c Lactic Acid Calcium 7.2 L Magnesium Ferritin Total Bilirubin AST 57 H ALT 102 H Alkaline Phosphatase Lactate Dehydrogenase Total Creatine Kinase C-Reactive Protein Total Protein 5.7 L Albumin 2.1 L Triglycerides Arterial Blood Glucose Arterial Blood Ionized Calcium Ur Specific [place] Urine WBC (Auto) Vancomycin Trough Coronavirus (PCR) 11/29/20 11/29/20 11/29/20 15:40 17:36 21:26 WBC RBC Hgb Hct RDW Plt Count Lymph % (Auto) [place] % (Auto) Lymph # (Auto) [place] # (Auto) Baso # (Auto) Seg Neutrophils % Seg Neuts % (Manual) Lymphocytes % (Manual) Nucleated RBC % Seg Neutrophils # Seg Neutrophils # Man Lymphocytes # (Manual) D-Dimer ABG pH POC ABG pCO2 POC ABG pO2 ABG pO2 ABG HCO3 ABG O2 Saturation ABG Base Excess ABG Hemoglobin ABG Oxyhemoglobin ABG Sodium ABG Potassium ABG Chloride ABG Glucose Oxyhemoglobin Carboxyhemoglobin Sodium Potassium Chloride Carbon Dioxide BUN Creatinine Glucose POC Glucose 240 H 244 H Hemoglobin A1c Lactic Acid Calcium Magnesium Ferritin Total Bilirubin AST ALT Alkaline Phosphatase Lactate Dehydrogenase Total Creatine Kinase C-Reactive Protein Total Protein Albumin Triglycerides Arterial Blood Glucose Arterial Blood Ionized Calcium Ur Specific [place] Urine WBC (Auto) Vancomycin Trough 4.0 L Coronavirus (PCR) 11/29/20 11/30/20 11/30/20 23:26 03:30 03:30 WBC RBC Hgb Hct RDW Plt Count Lymph % (Auto) [place] % (Auto) Lymph # (Auto) [place] # (Auto) Baso # (Auto) Seg Neutrophils % Seg Neuts % (Manual) 97.0 H Lymphocytes % (Manual) 1.0 L Nucleated RBC % Seg Neutrophils # Seg Neutrophils # Man 9.9 H Lymphocytes # (Manual) 0.1 L D-Dimer ABG pH POC ABG pCO2 POC ABG pO2 ABG pO2 ABG HCO3 ABG O2 Saturation ABG Base Excess ABG Hemoglobin ABG Oxyhemoglobin ABG Sodium ABG Potassium ABG Chloride ABG Glucose Oxyhemoglobin Carboxyhemoglobin Sodium Potassium Chloride Carbon Dioxide 38 H BUN 34 H Creatinine 0.4 L Glucose 305 H POC Glucose 283 H Hemoglobin A1c Lactic Acid Calcium 7.6 L Magnesium Ferritin Total Bilirubin AST ALT 89 H Alkaline Phosphatase Lactate Dehydrogenase Total Creatine Kinase C-Reactive Protein Total Protein 6.0 L Albumin 2.3 L Triglycerides Arterial Blood Glucose Arterial Blood Ionized Calcium Ur Specific [place] Urine WBC (Auto) Vancomycin Trough Coronavirus (PCR) 11/30/20 11/30/20 11/30/20 03:57 05:22 12:05 WBC RBC Hgb Hct RDW Plt Count Lymph % (Auto) [place] % (Auto) Lymph # (Auto) [place] # (Auto) Baso # (Auto) Seg Neutrophils % Seg Neuts % (Manual) Lymphocytes % (Manual) Nucleated RBC % Seg Neutrophils # Seg Neutrophils # Man Lymphocytes # (Manual) D-Dimer ABG pH POC ABG pCO2 60.8 H POC ABG pO2 51.1 L ABG pO2 ABG HCO3 ABG O2 Saturation ABG Base Excess ABG Hemoglobin ABG Oxyhemoglobin 84.6 L ABG Sodium ABG Potassium ABG Chloride ABG Glucose 315 H Oxyhemoglobin Carboxyhemoglobin Sodium Potassium Chloride Carbon Dioxide BUN Creatinine Glucose POC Glucose 295 H 413 H Hemoglobin A1c Lactic Acid Calcium Magnesium Ferritin Total Bilirubin AST ALT Alkaline Phosphatase Lactate Dehydrogenase Total Creatine Kinase C-Reactive Protein Total Protein Albumin Triglycerides Arterial Blood Glucose 315 H Arterial Blood Ionized Calcium 4.5 L Ur Specific [place] Urine WBC (Auto) Vancomycin Trough Coronavirus (PCR) 11/30/20 11/30/20 12/01/20 17:24 23:25 02:14 WBC RBC Hgb Hct RDW Plt Count Lymph % (Auto) [place] % (Auto) Lymph # (Auto) [place] # (Auto) Baso # (Auto) Seg Neutrophils % Seg Neuts % (Manual) Lymphocytes % (Manual) Nucleated RBC % Seg Neutrophils # Seg Neutrophils # Man Lymphocytes # (Manual) D-Dimer ABG pH 7.278 L POC ABG pCO2 78.1 H POC ABG pO2 79.5 L ABG pO2 ABG HCO3 ABG O2 Saturation ABG Base Excess ABG Hemoglobin 11.6 L ABG Oxyhemoglobin ABG Sodium 134.5 L ABG Potassium 4.6 H ABG Chloride ABG Glucose 286 H Oxyhemoglobin Carboxyhemoglobin Sodium Potassium Chloride Carbon Dioxide BUN Creatinine Glucose POC Glucose 305 H 302 H Hemoglobin A1c Lactic Acid Calcium Magnesium Ferritin Total Bilirubin AST ALT Alkaline Phosphatase Lactate Dehydrogenase Total Creatine Kinase C-Reactive Protein Total Protein Albumin Triglycerides Arterial Blood Glucose 286 H Arterial Blood Ionized Calcium Ur Specific [place] Urine WBC (Auto) Vancomycin Trough Coronavirus (PCR) 12/01/20 12/01/20 12/01/20 03:35 03:35 05:22 WBC 13.4 H RBC 3.54 L Hgb 10.4 L Hct 31.8 L RDW Plt Count Lymph % (Auto) [place] % (Auto) Lymph # (Auto) [place] # (Auto) Baso # (Auto) Seg Neutrophils % Seg Neuts % (Manual) 95.0 H Lymphocytes % (Manual) 3.0 L Nucleated RBC % Seg Neutrophils # Seg Neutrophils # Man 12.7 H Lymphocytes # (Manual) 0.4 L D-Dimer ABG pH POC ABG pCO2 POC ABG pO2 ABG pO2 ABG HCO3 ABG O2 Saturation ABG Base Excess ABG Hemoglobin ABG Oxyhemoglobin ABG Sodium ABG Potassium ABG Chloride ABG Glucose Oxyhemoglobin Carboxyhemoglobin Sodium Potassium Chloride Carbon Dioxide 35 H BUN 34 H Creatinine 0.5 L Glucose 279 H POC Glucose 259 H Hemoglobin A1c Lactic Acid Calcium 7.6 L Magnesium Ferritin Total Bilirubin AST ALT 63 H Alkaline Phosphatase Lactate Dehydrogenase Total Creatine Kinase C-Reactive Protein Total Protein 4.8 L Albumin 2.1 L Triglycerides Arterial Blood Glucose Arterial Blood Ionized Calcium Ur Specific [place] Urine WBC (Auto) Vancomycin Trough Coronavirus (PCR) 12/01/20 12/01/20 12/01/20 12:05 17:40 23:46 WBC RBC Hgb Hct RDW Plt Count Lymph % (Auto) [place] % (Auto) Lymph # (Auto) [place] # (Auto) Baso # (Auto) Seg Neutrophils % Seg Neuts % (Manual) Lymphocytes % (Manual) Nucleated RBC % Seg Neutrophils # Seg Neutrophils # Man Lymphocytes # (Manual) D-Dimer ABG pH POC ABG pCO2 POC ABG pO2 ABG pO2 ABG HCO3 ABG O2 Saturation ABG Base Excess ABG Hemoglobin ABG Oxyhemoglobin ABG Sodium ABG Potassium ABG Chloride ABG Glucose Oxyhemoglobin Carboxyhemoglobin Sodium Potassium Chloride Carbon Dioxide BUN Creatinine Glucose POC Glucose 197 H 244 H 284 H Hemoglobin A1c Lactic Acid Calcium Magnesium Ferritin Total Bilirubin AST ALT Alkaline Phosphatase Lactate Dehydrogenase Total Creatine Kinase C-Reactive Protein Total Protein Albumin Triglycerides Arterial Blood Glucose Arterial Blood Ionized Calcium Ur Specific [place] Urine WBC (Auto) Vancomycin Trough Coronavirus (PCR) 12/02/20 12/02/20 12/02/20 02:14 03:03 04:11 WBC 16.5 H RBC 3.55 L Hgb 10.5 L Hct 31.9 L RDW Plt Count Lymph % (Auto) [place] % (Auto) Lymph # (Auto) [place] # (Auto) Baso # (Auto) Seg Neutrophils % Seg Neuts % (Manual) 90.0 H Lymphocytes % (Manual) 3.0 L Nucleated RBC % Seg Neutrophils # Seg Neutrophils # Man 14.9 H Lymphocytes # (Manual) 0.5 L D-Dimer ABG pH POC ABG pCO2 74.8 H POC ABG pO2 58.9 L ABG pO2 ABG HCO3 ABG O2 Saturation ABG Base Excess ABG Hemoglobin 11.5 L ABG Oxyhemoglobin ABG Sodium ABG Potassium ABG Chloride ABG Glucose 264 H Oxyhemoglobin Carboxyhemoglobin Sodium Potassium Chloride Carbon Dioxide 37 H BUN 30 H Creatinine 0.4 L Glucose 245 H POC Glucose Hemoglobin A1c Lactic Acid Calcium 7.5 L Magnesium Ferritin Total Bilirubin AST ALT Alkaline Phosphatase Lactate Dehydrogenase Total Creatine Kinase C-Reactive Protein Total Protein 5.2 L Albumin 2.2 L Triglycerides Arterial Blood Glucose 264 H Arterial Blood Ionized Calcium 4.5 L Ur Specific [place] Urine WBC (Auto) Vancomycin Trough Coronavirus (PCR) 12/02/20 12/02/20 12/02/20 05:19 11:46 17:52 WBC RBC Hgb Hct RDW Plt Count Lymph % (Auto) [place] % (Auto) Lymph # (Auto) [place] # (Auto) Baso # (Auto) Seg Neutrophils % Seg Neuts % (Manual) Lymphocytes % (Manual) Nucleated RBC % Seg Neutrophils # Seg Neutrophils # Man Lymphocytes # (Manual) D-Dimer ABG pH POC ABG pCO2 POC ABG pO2 ABG pO2 ABG HCO3 ABG O2 Saturation ABG Base Excess ABG Hemoglobin ABG Oxyhemoglobin ABG Sodium ABG Potassium ABG Chloride ABG Glucose Oxyhemoglobin Carboxyhemoglobin Sodium Potassium Chloride Carbon Dioxide BUN Creatinine Glucose POC Glucose 238 H 236 H 233 H Hemoglobin A1c Lactic Acid Calcium Magnesium Ferritin Total Bilirubin AST ALT Alkaline Phosphatase Lactate Dehydrogenase Total Creatine Kinase C-Reactive Protein Total Protein Albumin Triglycerides Arterial Blood Glucose Arterial Blood Ionized Calcium Ur Specific [place] Urine WBC (Auto) Vancomycin Trough Coronavirus (PCR) 12/02/20 12/03/20 12/03/20 23:23 03:21 04:35 WBC RBC Hgb Hct RDW Plt Count 112 L Lymph % (Auto) [place] % (Auto) Lymph # (Auto) [place] # (Auto) Baso # (Auto) Seg Neutrophils % Seg Neuts % (Manual) 93.0 H Lymphocytes % (Manual) 4.0 L Nucleated RBC % Seg Neutrophils # Seg Neutrophils # Man 9.1 H Lymphocytes # (Manual) 0.4 L D-Dimer ABG pH 7.299 L POC ABG pCO2 82.1 H POC ABG pO2 62.4 L ABG pO2 ABG HCO3 ABG O2 Saturation ABG Base Excess ABG Hemoglobin 11.5 L ABG Oxyhemoglobin 89.6 L ABG Sodium 134.3 L ABG Potassium ABG Chloride 95.0 L ABG Glucose 203 H Oxyhemoglobin Carboxyhemoglobin Sodium Potassium Chloride Carbon Dioxide BUN Creatinine Glucose POC Glucose 213 H Hemoglobin A1c Lactic Acid Calcium Magnesium Ferritin Total Bilirubin AST ALT Alkaline Phosphatase Lactate Dehydrogenase Total Creatine Kinase C-Reactive Protein Total Protein Albumin Triglycerides Arterial Blood Glucose 203 H Arterial Blood Ionized Calcium 4.5 L Ur Specific [place] Urine WBC (Auto) Vancomycin Trough Coronavirus (PCR) 12/03/20 12/03/20 12/03/20 04:35 05:42 11:28 WBC RBC Hgb Hct RDW Plt Count Lymph % (Auto) [place] % (Auto) Lymph # (Auto) [place] # (Auto) Baso # (Auto) Seg Neutrophils % Seg Neuts % (Manual) Lymphocytes % (Manual) Nucleated RBC % Seg Neutrophils # Seg Neutrophils # Man Lymphocytes # (Manual) D-Dimer ABG pH POC ABG pCO2 POC ABG pO2 ABG pO2 ABG HCO3 ABG O2 Saturation ABG Base Excess ABG Hemoglobin ABG Oxyhemoglobin ABG Sodium ABG Potassium ABG Chloride ABG Glucose Oxyhemoglobin Carboxyhemoglobin Sodium Potassium Chloride 97.8 L Carbon Dioxide 43 H* BUN 25 H Creatinine 0.3 L Glucose 214 H POC Glucose 193 H 211 H Hemoglobin A1c Lactic Acid Calcium 7.7 L Magnesium Ferritin Total Bilirubin AST ALT 63 H Alkaline Phosphatase 132 H Lactate Dehydrogenase Total Creatine Kinase C-Reactive Protein Total Protein 5.1 L Albumin 2.4 L Triglycerides Arterial Blood Glucose Arterial Blood Ionized Calcium Ur Specific [place] Urine WBC (Auto) Vancomycin Trough Coronavirus (PCR) 12/03/20 12/03/20 12/04/20 17:45 23:57 00:11 WBC RBC Hgb Hct RDW Plt Count Lymph % (Auto) [place] % (Auto) Lymph # (Auto) [place] # (Auto) Baso # (Auto) Seg Neutrophils % Seg Neuts % (Manual) Lymphocytes % (Manual) Nucleated RBC % Seg Neutrophils # Seg Neutrophils # Man Lymphocytes # (Manual) D-Dimer ABG pH POC ABG pCO2 POC ABG pO2 ABG pO2 ABG HCO3 ABG O2 Saturation ABG Base Excess ABG Hemoglobin ABG Oxyhemoglobin ABG Sodium ABG Potassium ABG Chloride ABG Glucose Oxyhemoglobin Carboxyhemoglobin Sodium Potassium Chloride Carbon Dioxide BUN Creatinine Glucose POC Glucose 231 H 240 H 239 H Hemoglobin A1c Lactic Acid Calcium Magnesium Ferritin Total Bilirubin AST ALT Alkaline Phosphatase Lactate Dehydrogenase Total Creatine Kinase C-Reactive Protein Total Protein Albumin Triglycerides Arterial Blood Glucose Arterial Blood Ionized Calcium Ur Specific [place] Urine WBC (Auto) Vancomycin Trough Coronavirus (PCR) 12/04/20 12/04/20 12/04/20 04:00 05:20 05:34 WBC RBC Hgb Hct RDW Plt Count Lymph % (Auto) [place] % (Auto) Lymph # (Auto) [place] # (Auto) Baso # (Auto) Seg Neutrophils % Seg Neuts % (Manual) Lymphocytes % (Manual) Nucleated RBC % Seg Neutrophils # Seg Neutrophils # Man Lymphocytes # (Manual) D-Dimer ABG pH POC ABG pCO2 84.4 H POC ABG pO2 68.0 L ABG pO2 ABG HCO3 ABG O2 Saturation ABG Base Excess ABG Hemoglobin 11.6 L ABG Oxyhemoglobin ABG Sodium 130.9 L ABG Potassium ABG Chloride 90.0 L ABG Glucose 244 H Oxyhemoglobin Carboxyhemoglobin Sodium Potassium Chloride Carbon Dioxide BUN Creatinine Glucose POC Glucose 241 H 213 H Hemoglobin A1c Lactic Acid Calcium Magnesium Ferritin Total Bilirubin AST ALT Alkaline Phosphatase Lactate Dehydrogenase Total Creatine Kinase C-Reactive Protein Total Protein Albumin Triglycerides Arterial Blood Glucose 244 H Arterial Blood Ionized Calcium 4.4 L Ur Specific [place] Urine WBC (Auto) Vancomycin Trough Coronavirus (PCR) 12/04/20 12/04/20 12/04/20 11:36 16:53 23:32 WBC RBC Hgb Hct RDW Plt Count Lymph % (Auto) [place] % (Auto) Lymph # (Auto) [place] # (Auto) Baso # (Auto) Seg Neutrophils % Seg Neuts % (Manual) Lymphocytes % (Manual) Nucleated RBC % Seg Neutrophils # Seg Neutrophils # Man Lymphocytes # (Manual) D-Dimer ABG pH POC ABG pCO2 POC ABG pO2 ABG pO2 ABG HCO3 ABG O2 Saturation ABG Base Excess ABG Hemoglobin ABG Oxyhemoglobin ABG Sodium ABG Potassium ABG Chloride ABG Glucose Oxyhemoglobin Carboxyhemoglobin Sodium Potassium Chloride Carbon Dioxide BUN Creatinine Glucose POC Glucose 196 H 127 H 230 H Hemoglobin A1c Lactic Acid Calcium Magnesium Ferritin Total Bilirubin AST ALT Alkaline Phosphatase Lactate Dehydrogenase Total Creatine Kinase C-Reactive Protein Total Protein Albumin Triglycerides Arterial Blood Glucose Arterial Blood Ionized Calcium Ur Specific [place] Urine WBC (Auto) Vancomycin Trough Coronavirus (PCR) 12/04/20 12/05/20 12/05/20 Unknown 04:16 05:21 WBC RBC Hgb Hct RDW Plt Count Lymph % (Auto) [place] % (Auto) Lymph # (Auto) [place] # (Auto) Baso # (Auto) Seg Neutrophils % Seg Neuts % (Manual) Lymphocytes % (Manual) Nucleated RBC % Seg Neutrophils # Seg Neutrophils # Man Lymphocytes # (Manual) D-Dimer ABG pH POC ABG pCO2 86.7 H POC ABG pO2 58.0 L ABG pO2 ABG HCO3 ABG O2 Saturation ABG Base Excess ABG Hemoglobin 11.6 L ABG Oxyhemoglobin 89 L ABG Sodium 130.1 L ABG Potassium 4.9 H ABG Chloride 89.0 L ABG Glucose 254 H Oxyhemoglobin Carboxyhemoglobin Sodium 136 L Potassium Chloride 90.0 L Carbon Dioxide 46 H* BUN 24 H Creatinine 0.3 L Glucose 226 H POC Glucose 213 H Hemoglobin A1c Lactic Acid Calcium 7.6 L Magnesium Ferritin Total Bilirubin AST 46 H ALT 78 H Alkaline Phosphatase 172 H Lactate Dehydrogenase Total Creatine Kinase C-Reactive Protein Total Protein 6.0 L Albumin 2.8 L Triglycerides 156 H Arterial Blood Glucose 254 H Arterial Blood Ionized Calcium 4.4 L Ur Specific [place] Urine WBC (Auto) Vancomycin Trough Coronavirus (PCR) 12/05/20 12/05/20 12/05/20 11:22 17:26 23:38 WBC RBC Hgb Hct RDW Plt Count Lymph % (Auto) [place] % (Auto) Lymph # (Auto) [place] # (Auto) Baso # (Auto) Seg Neutrophils % Seg Neuts % (Manual) Lymphocytes % (Manual) Nucleated RBC % Seg Neutrophils # Seg Neutrophils # Man Lymphocytes # (Manual) D-Dimer ABG pH POC ABG pCO2 POC ABG pO2 ABG pO2 ABG HCO3 ABG O2 Saturation ABG Base Excess ABG Hemoglobin ABG Oxyhemoglobin ABG Sodium ABG Potassium ABG Chloride ABG Glucose Oxyhemoglobin Carboxyhemoglobin Sodium Potassium Chloride Carbon Dioxide BUN Creatinine Glucose POC Glucose 212 H 157 H 204 H Hemoglobin A1c Lactic Acid Calcium Magnesium Ferritin Total Bilirubin AST ALT Alkaline Phosphatase Lactate Dehydrogenase Total Creatine Kinase C-Reactive Protein Total Protein Albumin Triglycerides Arterial Blood Glucose Arterial Blood Ionized Calcium Ur Specific [place] Urine WBC (Auto) Vancomycin Trough Coronavirus (PCR) 12/06/20 12/06/20 12/06/20 04:31 04:31 05:12 WBC 17.0 H RBC 3.63 L Hgb 10.8 L D Hct 32.6 L D RDW Plt Count Lymph % (Auto) [place] % (Auto) Lymph # (Auto) [place] # (Auto) Baso # (Auto) Seg Neutrophils % Seg Neuts % (Manual) Lymphocytes % (Manual) Nucleated RBC % Seg Neutrophils # Seg Neutrophils # Man Lymphocytes # (Manual) D-Dimer ABG pH POC ABG pCO2 85.9 H POC ABG pO2 57.6 L ABG pO2 ABG HCO3 ABG O2 Saturation ABG Base Excess ABG Hemoglobin ABG Oxyhemoglobin ABG Sodium 131.2 L ABG Potassium 4.8 H ABG Chloride 86.0 L ABG Glucose 200 H Oxyhemoglobin Carboxyhemoglobin Sodium 134 L Potassium 5.1 H Chloride 88.4 L Carbon Dioxide 47 H* BUN 23 H Creatinine 0.3 L Glucose 206 H POC Glucose Hemoglobin A1c Lactic Acid Calcium 8.3 L Magnesium Ferritin Total Bilirubin AST 48 H ALT 91 H Alkaline Phosphatase 140 H Lactate Dehydrogenase Total Creatine Kinase C-Reactive Protein Total Protein 5.7 L Albumin 2.6 L Triglycerides Arterial Blood Glucose 200 H Arterial Blood Ionized Calcium 4.4 L Ur Specific [place] Urine WBC (Auto) Vancomycin Trough Coronavirus (PCR) 12/06/20 12/06/20 12/06/20 05:24 12:18 16:45 WBC RBC Hgb Hct RDW Plt Count Lymph % (Auto) [place] % (Auto) Lymph # (Auto) [place] # (Auto) Baso # (Auto) Seg Neutrophils % Seg Neuts % (Manual) Lymphocytes % (Manual) Nucleated RBC % Seg Neutrophils # Seg Neutrophils # Man Lymphocytes # (Manual) D-Dimer ABG pH POC ABG pCO2 POC ABG pO2 ABG pO2 ABG HCO3 ABG O2 Saturation ABG Base Excess ABG Hemoglobin ABG Oxyhemoglobin ABG Sodium ABG Potassium ABG Chloride ABG Glucose Oxyhemoglobin Carboxyhemoglobin Sodium Potassium Chloride Carbon Dioxide BUN Creatinine Glucose POC Glucose 186 H 187 H 150 H Hemoglobin A1c Lactic Acid Calcium Magnesium Ferritin Total Bilirubin AST ALT Alkaline Phosphatase Lactate Dehydrogenase Total Creatine Kinase C-Reactive Protein Total Protein Albumin Triglycerides Arterial Blood Glucose Arterial Blood Ionized Calcium Ur Specific [place] Urine WBC (Auto) Vancomycin Trough Coronavirus (PCR) 12/06/20 12/07/20 12/07/20 23:43 05:20 05:21 WBC RBC Hgb Hct RDW Plt Count Lymph % (Auto) [place] % (Auto) Lymph # (Auto) [place] # (Auto) Baso # (Auto) Seg Neutrophils % Seg Neuts % (Manual) Lymphocytes % (Manual) Nucleated RBC % Seg Neutrophils # Seg Neutrophils # Man Lymphocytes # (Manual) D-Dimer ABG pH POC ABG pCO2 POC ABG pO2 ABG pO2 48.4 L ABG HCO3 50.8 H ABG O2 Saturation 86.2 L ABG Base Excess 22.4 H ABG Hemoglobin 11.0 L ABG Oxyhemoglobin ABG Sodium ABG Potassium ABG Chloride ABG Glucose Oxyhemoglobin 84.0 L Carboxyhemoglobin Sodium Potassium Chloride Carbon Dioxide BUN Creatinine Glucose POC Glucose 153 H 107 H Hemoglobin A1c Lactic Acid Calcium Magnesium Ferritin Total Bilirubin AST ALT Alkaline Phosphatase Lactate Dehydrogenase Total Creatine Kinase C-Reactive Protein Total Protein Albumin Triglycerides Arterial Blood Glucose Arterial Blood Ionized Calcium Ur Specific [place] Urine WBC (Auto) Vancomycin Trough Coronavirus (PCR) 12/07/20 12/07/20 12/07/20 13:20 14:28 17:35 WBC RBC Hgb Hct RDW Plt Count Lymph % (Auto) [place] % (Auto) Lymph # (Auto) [place] # (Auto) Baso # (Auto) Seg Neutrophils % Seg Neuts % (Manual) Lymphocytes % (Manual) Nucleated RBC % Seg Neutrophils # Seg Neutrophils # Man Lymphocytes # (Manual) D-Dimer ABG pH POC ABG pCO2 74.1 H POC ABG pO2 68.5 L ABG pO2 ABG HCO3 ABG O2 Saturation ABG Base Excess ABG Hemoglobin 10.7 L ABG Oxyhemoglobin 91.9 L ABG Sodium 132.2 L ABG Potassium 4.7 H ABG Chloride 88.0 L ABG Glucose 138 H Oxyhemoglobin Carboxyhemoglobin Sodium 134 L Potassium Chloride 87.4 L Carbon Dioxide 49 H* BUN Creatinine 0.2 L Glucose 132 H POC Glucose 176 H Hemoglobin A1c Lactic Acid Calcium 7.7 L Magnesium Ferritin Total Bilirubin AST ALT Alkaline Phosphatase Lactate Dehydrogenase Total Creatine Kinase C-Reactive Protein Total Protein Albumin Triglycerides Arterial Blood Glucose 138 H Arterial Blood Ionized Calcium 4.0 L Ur Specific [place] Urine WBC (Auto) Vancomycin Trough Coronavirus (PCR) 12/07/20 12/08/20 12/08/20 23:44 04:12 05:29 WBC RBC Hgb Hct RDW Plt Count Lymph % (Auto) [place] % (Auto) Lymph # (Auto) [place] # (Auto) Baso # (Auto) Seg Neutrophils % Seg Neuts % (Manual) Lymphocytes % (Manual) Nucleated RBC % Seg Neutrophils # Seg Neutrophils # Man Lymphocytes # (Manual) D-Dimer ABG pH POC ABG pCO2 POC ABG pO2 ABG pO2 69.7 L ABG HCO3 50.1 H ABG O2 Saturation ABG Base Excess 21.6 H ABG Hemoglobin 10.9 L ABG Oxyhemoglobin ABG Sodium ABG Potassium ABG Chloride ABG Glucose Oxyhemoglobin 93.2 L Carboxyhemoglobin Sodium Potassium Chloride Carbon Dioxide BUN Creatinine Glucose POC Glucose 143 H 143 H Hemoglobin A1c Lactic Acid Calcium Magnesium Ferritin Total Bilirubin AST ALT Alkaline Phosphatase Lactate Dehydrogenase Total Creatine Kinase C-Reactive Protein Total Protein Albumin Triglycerides Arterial Blood Glucose Arterial Blood Ionized Calcium Ur Specific [place] Urine WBC (Auto) Vancomycin Trough Coronavirus (PCR) 12/08/20 12/08/20 12/09/20 06:10 06:10 04:24 WBC 12.0 H RBC 3.18 L Hgb 9.5 L Hct 28.9 L RDW Plt Count Lymph % (Auto) [place] % (Auto) Lymph # (Auto) [place] # (Auto) Baso # (Auto) Seg Neutrophils % Seg Neuts % (Manual) 95.0 H Lymphocytes % (Manual) 3.0 L Nucleated RBC % Seg Neutrophils # Seg Neutrophils # Man 11.4 H Lymphocytes # (Manual) 0.4 L D-Dimer ABG pH POC ABG pCO2 76.2 H POC ABG pO2 52.8 L ABG pO2 ABG HCO3 ABG O2 Saturation ABG Base Excess ABG Hemoglobin 11.7 L ABG Oxyhemoglobin ABG Sodium 132.0 L ABG Potassium ABG Chloride 87.0 L ABG Glucose 118 H Oxyhemoglobin Carboxyhemoglobin Sodium 133 L Potassium Chloride 86.3 L Carbon Dioxide 53 H* BUN Creatinine 0.2 L Glucose 156 H POC Glucose Hemoglobin A1c Lactic Acid Calcium 7.6 L Magnesium Ferritin Total Bilirubin AST ALT Alkaline Phosphatase Lactate Dehydrogenase Total Creatine Kinase C-Reactive Protein Total Protein Albumin Triglycerides Arterial Blood Glucose 118 H Arterial Blood Ionized Calcium 4.2 L Ur Specific [place] Urine WBC (Auto) Vancomycin Trough Coronavirus (PCR) 12/09/20 12/09/20 12/09/20 05:44 06:40 06:40 WBC 13.5 H RBC 3.28 L Hgb 9.7 L Hct 29.9 L RDW Plt Count Lymph % (Auto) [place] % (Auto) Lymph # (Auto) [place] # (Auto) Baso # (Auto) Seg Neutrophils % Seg Neuts % (Manual) Lymphocytes % (Manual) Nucleated RBC % Seg Neutrophils # Seg Neutrophils # Man Lymphocytes # (Manual) D-Dimer ABG pH POC ABG pCO2 POC ABG pO2 ABG pO2 ABG HCO3 ABG O2 Saturation ABG Base Excess ABG Hemoglobin ABG Oxyhemoglobin ABG Sodium ABG Potassium ABG Chloride ABG Glucose Oxyhemoglobin Carboxyhemoglobin Sodium 135 L Potassium Chloride 89.5 L Carbon Dioxide 52 H* BUN Creatinine 0.3 L Glucose 114 H POC Glucose 117 H Hemoglobin A1c Lactic Acid Calcium 7.6 L Magnesium Ferritin Total Bilirubin AST ALT Alkaline Phosphatase Lactate Dehydrogenase Total Creatine Kinase C-Reactive Protein Total Protein Albumin Triglycerides Arterial Blood Glucose Arterial Blood Ionized Calcium Ur Specific [place] Urine WBC (Auto) Vancomycin Trough Coronavirus (PCR) 12/09/20 12/09/20 12/10/20 16:42 21:11 04:28 WBC RBC Hgb Hct RDW Plt Count Lymph % (Auto) [place] % (Auto) Lymph # (Auto) [place] # (Auto) Baso # (Auto) Seg Neutrophils % Seg Neuts % (Manual) Lymphocytes % (Manual) Nucleated RBC % Seg Neutrophils # Seg Neutrophils # Man Lymphocytes # (Manual) D-Dimer ABG pH POC ABG pCO2 72.5 H 69.4 H 76.9 H POC ABG pO2 50.4 L 80.6 L 60.2 L ABG pO2 ABG HCO3 ABG O2 Saturation ABG Base Excess ABG Hemoglobin 10.4 L 10.7 L 10 L ABG Oxyhemoglobin 84.3 L 89.7 L ABG Sodium 133.7 L 133.7 L 133.8 L ABG Potassium ABG Chloride 90.0 L 91.0 L 91.0 L ABG Glucose 116 H 96 H 57 L Oxyhemoglobin Carboxyhemoglobin 0.4 L Sodium Potassium Chloride Carbon Dioxide BUN Creatinine Glucose POC Glucose Hemoglobin A1c Lactic Acid Calcium Magnesium Ferritin Total Bilirubin AST ALT Alkaline Phosphatase Lactate Dehydrogenase Total Creatine Kinase C-Reactive Protein Total Protein Albumin Triglycerides Arterial Blood Glucose 116 H 96 H 57 L Arterial Blood Ionized Calcium 4.2 L 4.3 L 4.2 L Ur Specific [place] Urine WBC (Auto) Vancomycin Trough Coronavirus (PCR) 12/10/20 12/10/20 12/10/20 05:09 05:41 11:50 WBC RBC Hgb Hct RDW Plt Count Lymph % (Auto) [place] % (Auto) Lymph # (Auto) [place] # (Auto) Baso # (Auto) Seg Neutrophils % Seg Neuts % (Manual) Lymphocytes % (Manual) Nucleated RBC % Seg Neutrophils # Seg Neutrophils # Man Lymphocytes # (Manual) D-Dimer ABG pH POC ABG pCO2 POC ABG pO2 ABG pO2 ABG HCO3 ABG O2 Saturation ABG Base Excess ABG Hemoglobin ABG Oxyhemoglobin ABG Sodium ABG Potassium ABG Chloride ABG Glucose Oxyhemoglobin Carboxyhemoglobin Sodium Potassium Chloride Carbon Dioxide BUN Creatinine Glucose POC Glucose 41 L 138 H 106 H Hemoglobin A1c Lactic Acid Calcium Magnesium Ferritin Total Bilirubin AST ALT Alkaline Phosphatase Lactate Dehydrogenase Total Creatine Kinase C-Reactive Protein Total Protein Albumin Triglycerides Arterial Blood Glucose Arterial Blood Ionized Calcium Ur Specific [place] Urine WBC (Auto) Vancomycin Trough Coronavirus (PCR) 12/10/20 12/10/20 12/11/20 17:34 23:25 04:06 WBC RBC Hgb Hct RDW Plt Count Lymph % (Auto) [place] % (Auto) Lymph # (Auto) [place] # (Auto) Baso # (Auto) Seg Neutrophils % Seg Neuts % (Manual) Lymphocytes % (Manual) Nucleated RBC % Seg Neutrophils # Seg Neutrophils # Man Lymphocytes # (Manual) D-Dimer ABG pH POC ABG pCO2 71.0 H POC ABG pO2 56.8 L ABG pO2 ABG HCO3 ABG O2 Saturation ABG Base Excess ABG Hemoglobin 10.1 L ABG Oxyhemoglobin 88.5 L ABG Sodium 132.3 L ABG Potassium ABG Chloride 91.0 L ABG Glucose 168 H Oxyhemoglobin Carboxyhemoglobin Sodium Potassium Chloride Carbon Dioxide BUN Creatinine Glucose POC Glucose 121 H 167 H Hemoglobin A1c Lactic Acid Calcium Magnesium Ferritin Total Bilirubin AST ALT Alkaline Phosphatase Lactate Dehydrogenase Total Creatine Kinase C-Reactive Protein Total Protein Albumin Triglycerides Arterial Blood Glucose 168 H Arterial Blood Ionized Calcium 4.1 L Ur Specific [place] Urine WBC (Auto) Vancomycin Trough Coronavirus (PCR) 12/11/20 12/11/20 12/11/20 05:21 11:44 15:40 WBC RBC Hgb Hct RDW Plt Count Lymph % (Auto) [place] % (Auto) Lymph # (Auto) [place] # (Auto) Baso # (Auto) Seg Neutrophils % Seg Neuts % (Manual) Lymphocytes % (Manual) Nucleated RBC % Seg Neutrophils # Seg Neutrophils # Man Lymphocytes # (Manual) D-Dimer ABG pH 7.454 H POC ABG pCO2 58.6 H POC ABG pO2 50.7 L ABG pO2 ABG HCO3 ABG O2 Saturation ABG Base Excess ABG Hemoglobin 10.1 L ABG Oxyhemoglobin 86.2 L ABG Sodium 131.2 L ABG Potassium ABG Chloride 92.0 L ABG Glucose 197 H Oxyhemoglobin Carboxyhemoglobin Sodium Potassium Chloride Carbon Dioxide BUN Creatinine Glucose POC Glucose 149 H 202 H Hemoglobin A1c Lactic Acid Calcium Magnesium Ferritin Total Bilirubin AST ALT Alkaline Phosphatase Lactate Dehydrogenase Total Creatine Kinase C-Reactive Protein Total Protein Albumin Triglycerides Arterial Blood Glucose 197 H Arterial Blood Ionized Calcium 4.2 L Ur Specific [place] Urine WBC (Auto) Vancomycin Trough Coronavirus (PCR) 12/11/20 12/11/20 12/12/20 17:09 23:16 05:09 WBC RBC Hgb Hct RDW Plt Count Lymph % (Auto) [place] % (Auto) Lymph # (Auto) [place] # (Auto) Baso # (Auto) Seg Neutrophils % Seg Neuts % (Manual) Lymphocytes % (Manual) Nucleated RBC % Seg Neutrophils # Seg Neutrophils # Man Lymphocytes # (Manual) D-Dimer ABG pH POC ABG pCO2 63.1 H POC ABG pO2 62.6 L ABG pO2 ABG HCO3 ABG O2 Saturation ABG Base Excess ABG Hemoglobin 10.3 L ABG Oxyhemoglobin ABG Sodium 130.3 L ABG Potassium 4.6 H ABG Chloride 92.0 L ABG Glucose 215 H Oxyhemoglobin Carboxyhemoglobin Sodium Potassium Chloride Carbon Dioxide BUN Creatinine Glucose POC Glucose 181 H 192 H Hemoglobin A1c Lactic Acid Calcium Magnesium Ferritin Total Bilirubin AST ALT Alkaline Phosphatase Lactate Dehydrogenase Total Creatine Kinase C-Reactive Protein Total Protein Albumin Triglycerides Arterial Blood Glucose 215 H Arterial Blood Ionized Calcium 4.4 L Ur Specific [place] Urine WBC (Auto) Vancomycin Trough Coronavirus (PCR) 12/12/20 12/12/20 12/12/20 05:16 05:47 11:41 WBC RBC Hgb Hct RDW Plt Count Lymph % (Auto) [place] % (Auto) Lymph # (Auto) [place] # (Auto) Baso # (Auto) Seg Neutrophils % Seg Neuts % (Manual) Lymphocytes % (Manual) Nucleated RBC % Seg Neutrophils # Seg Neutrophils # Man Lymphocytes # (Manual) D-Dimer ABG pH POC ABG pCO2 POC ABG pO2 ABG pO2 ABG HCO3 ABG O2 Saturation ABG Base Excess ABG Hemoglobin ABG Oxyhemoglobin ABG Sodium ABG Potassium ABG Chloride ABG Glucose Oxyhemoglobin Carboxyhemoglobin Sodium Potassium Chloride Carbon Dioxide BUN Creatinine Glucose POC Glucose 208 H 218 H Hemoglobin A1c Lactic Acid Calcium Magnesium Ferritin Total Bilirubin AST ALT Alkaline Phosphatase Lactate Dehydrogenase Total Creatine Kinase C-Reactive Protein Total Protein Albumin Triglycerides 150 H Arterial Blood Glucose Arterial Blood Ionized Calcium Ur Specific [place] Urine WBC (Auto) Vancomycin Trough Coronavirus (PCR) 12/12/20 12/12/20 12/13/20 17:05 23:18 03:36 WBC RBC Hgb Hct RDW Plt Count Lymph % (Auto) [place] % (Auto) Lymph # (Auto) [place] # (Auto) Baso # (Auto) Seg Neutrophils % Seg Neuts % (Manual) Lymphocytes % (Manual) Nucleated RBC % Seg Neutrophils # Seg Neutrophils # Man Lymphocytes # (Manual) D-Dimer ABG pH POC ABG pCO2 61.5 H POC ABG pO2 77.6 L ABG pO2 ABG HCO3 ABG O2 Saturation ABG Base Excess ABG Hemoglobin 10.2 L ABG Oxyhemoglobin ABG Sodium 127.5 L ABG Potassium ABG Chloride 91.0 L ABG Glucose 232 H Oxyhemoglobin Carboxyhemoglobin Sodium Potassium Chloride Carbon Dioxide BUN Creatinine Glucose POC Glucose 187 H 176 H Hemoglobin A1c Lactic Acid Calcium Magnesium Ferritin Total Bilirubin AST ALT Alkaline Phosphatase Lactate Dehydrogenase Total Creatine Kinase C-Reactive Protein Total Protein Albumin Triglycerides Arterial Blood Glucose 232 H Arterial Blood Ionized Calcium 4.2 L Ur Specific [place] Urine WBC (Auto) Vancomycin Trough Coronavirus (PCR) 12/13/20 12/13/20 12/13/20 05:13 10:00 11:30 WBC RBC 3.50 L Hgb 10.5 L Hct 31.9 L RDW Plt Count Lymph % (Auto) [place] % (Auto) Lymph # (Auto) [place] # (Auto) Baso # (Auto) Seg Neutrophils % Seg Neuts % (Manual) 96.0 H Lymphocytes % (Manual) Nucleated RBC % Seg Neutrophils # Seg Neutrophils # Man 9.2 H Lymphocytes # (Manual) 0.0 L D-Dimer ABG pH POC ABG pCO2 POC ABG pO2 ABG pO2 ABG HCO3 ABG O2 Saturation ABG Base Excess ABG Hemoglobin ABG Oxyhemoglobin ABG Sodium ABG Potassium ABG Chloride ABG Glucose Oxyhemoglobin Carboxyhemoglobin Sodium Potassium Chloride Carbon Dioxide BUN Creatinine Glucose POC Glucose 204 H Hemoglobin A1c Lactic Acid Calcium Magnesium Ferritin Total Bilirubin AST ALT Alkaline Phosphatase Lactate Dehydrogenase Total Creatine Kinase C-Reactive Protein Total Protein Albumin Triglycerides Arterial Blood Glucose Arterial Blood Ionized Calcium Ur Specific [place] Urine WBC (Auto) Vancomycin Trough Coronavirus (PCR) Positive A 12/13/20 12/13/20 12/13/20 11:30 12:01 18:04 WBC RBC Hgb Hct RDW Plt Count Lymph % (Auto) [place] % (Auto) Lymph # (Auto) [place] # (Auto) Baso # (Auto) Seg Neutrophils % Seg Neuts % (Manual) Lymphocytes % (Manual) Nucleated RBC % Seg Neutrophils # Seg Neutrophils # Man Lymphocytes # (Manual) D-Dimer ABG pH POC ABG pCO2 POC ABG pO2 ABG pO2 ABG HCO3 ABG O2 Saturation ABG Base Excess ABG Hemoglobin ABG Oxyhemoglobin ABG Sodium ABG Potassium ABG Chloride ABG Glucose Oxyhemoglobin Carboxyhemoglobin Sodium 132 L Potassium Chloride 90.1 L Carbon Dioxide 41 H* D BUN Creatinine 0.2 L Glucose 249 H POC Glucose 224 H 172 H Hemoglobin A1c Lactic Acid Calcium 7.4 L Magnesium Ferritin Total Bilirubin AST ALT 61 H Alkaline Phosphatase Lactate Dehydrogenase Total Creatine Kinase C-Reactive Protein Total Protein 5.7 L Albumin 2.3 L Triglycerides Arterial Blood Glucose Arterial Blood Ionized Calcium Ur Specific [place] Urine WBC (Auto) Vancomycin Trough Coronavirus (PCR) 12/13/20 12/14/20 12/14/20 23:37 04:05 04:35 WBC RBC 3.37 L Hgb 10.1 L Hct 30.7 L RDW 15.4 H Plt Count Lymph % (Auto) [place] % (Auto) Lymph # (Auto) [place] # (Auto) Baso # (Auto) Seg Neutrophils % Seg Neuts % (Manual) 93.0 H Lymphocytes % (Manual) 3.0 L Nucleated RBC % Seg Neutrophils # Seg Neutrophils # Man 7.8 H Lymphocytes # (Manual) 0.3 L D-Dimer ABG pH POC ABG pCO2 72.2 H POC ABG pO2 61.5 L ABG pO2 ABG HCO3 ABG O2 Saturation ABG Base Excess ABG Hemoglobin ABG Oxyhemoglobin 89.9 L ABG Sodium 131.4 L ABG Potassium ABG Chloride 91.0 L ABG Glucose 205 H Oxyhemoglobin Carboxyhemoglobin Sodium Potassium Chloride Carbon Dioxide BUN Creatinine Glucose POC Glucose 200 H Hemoglobin A1c Lactic Acid Calcium Magnesium Ferritin Total Bilirubin AST ALT Alkaline Phosphatase Lactate Dehydrogenase Total Creatine Kinase C-Reactive Protein Total Protein Albumin Triglycerides Arterial Blood Glucose 205 H Arterial Blood Ionized Calcium 4.3 L Ur Specific [place] Urine WBC (Auto) Vancomycin Trough Coronavirus (PCR) 12/14/20 12/14/20 12/14/20 04:35 05:12 11:31 WBC RBC Hgb Hct RDW Plt Count Lymph % (Auto) [place] % (Auto) Lymph # (Auto) [place] # (Auto) Baso # (Auto) Seg Neutrophils % Seg Neuts % (Manual) Lymphocytes % (Manual) Nucleated RBC % Seg Neutrophils # Seg Neutrophils # Man Lymphocytes # (Manual) D-Dimer ABG pH POC ABG pCO2 POC ABG pO2 ABG pO2 ABG HCO3 ABG O2 Saturation ABG Base Excess ABG Hemoglobin ABG Oxyhemoglobin ABG Sodium ABG Potassium ABG Chloride ABG Glucose Oxyhemoglobin Carboxyhemoglobin Sodium 135 L Potassium Chloride 92.5 L Carbon Dioxide 38 H BUN Creatinine 0.2 L Glucose 184 H POC Glucose 176 H 212 H Hemoglobin A1c Lactic Acid Calcium 7.7 L Magnesium Ferritin Total Bilirubin AST ALT Alkaline Phosphatase Lactate Dehydrogenase Total Creatine Kinase C-Reactive Protein Total Protein Albumin Triglycerides Arterial Blood Glucose Arterial Blood Ionized Calcium Ur Specific [place] Urine WBC (Auto) Vancomycin Trough Coronavirus (PCR) 12/14/20 12/14/20 12/15/20 17:30 23:30 03:19 WBC RBC Hgb Hct RDW Plt Count Lymph % (Auto) [place] % (Auto) Lymph # (Auto) [place] # (Auto) Baso # (Auto) Seg Neutrophils % Seg Neuts % (Manual) Lymphocytes % (Manual) Nucleated RBC % Seg Neutrophils # Seg Neutrophils # Man Lymphocytes # (Manual) D-Dimer ABG pH POC ABG pCO2 62.0 H POC ABG pO2 66.0 L ABG pO2 ABG HCO3 ABG O2 Saturation ABG Base Excess ABG Hemoglobin 10.3 L ABG Oxyhemoglobin ABG Sodium 130.5 L ABG Potassium ABG Chloride 91.0 L ABG Glucose 166 H Oxyhemoglobin Carboxyhemoglobin Sodium Potassium Chloride Carbon Dioxide BUN Creatinine Glucose POC Glucose 222 H 176 H Hemoglobin A1c Lactic Acid Calcium Magnesium Ferritin Total Bilirubin AST ALT Alkaline Phosphatase Lactate Dehydrogenase Total Creatine Kinase C-Reactive Protein Total Protein Albumin Triglycerides Arterial Blood Glucose 166 H Arterial Blood Ionized Calcium 4.4 L Ur Specific [place] Urine WBC (Auto) Vancomycin Trough Coronavirus (PCR) 12/15/20 12/15/20 12/15/20 05:24 11:39 17:30 WBC RBC Hgb Hct RDW Plt Count Lymph % (Auto) [place] % (Auto) Lymph # (Auto) [place] # (Auto) Baso # (Auto) Seg Neutrophils % Seg Neuts % (Manual) Lymphocytes % (Manual) Nucleated RBC % Seg Neutrophils # Seg Neutrophils # Man Lymphocytes # (Manual) D-Dimer ABG pH POC ABG pCO2 POC ABG pO2 ABG pO2 ABG HCO3 ABG O2 Saturation ABG Base Excess ABG Hemoglobin ABG Oxyhemoglobin ABG Sodium ABG Potassium ABG Chloride ABG Glucose Oxyhemoglobin Carboxyhemoglobin Sodium Potassium Chloride Carbon Dioxide BUN Creatinine Glucose POC Glucose 160 H 140 H 246 H Hemoglobin A1c Lactic Acid Calcium Magnesium Ferritin Total Bilirubin AST ALT Alkaline Phosphatase Lactate Dehydrogenase Total Creatine Kinase C-Reactive Protein Total Protein Albumin Triglycerides Arterial Blood Glucose Arterial Blood Ionized Calcium Ur Specific [place] Urine WBC (Auto) Vancomycin Trough Coronavirus (PCR) 12/15/20 12/16/20 12/16/20 23:42 03:54 04:46 WBC RBC 3.48 L Hgb 10.6 L Hct 31.5 L RDW 15.8 H Plt Count Lymph % (Auto) [place] % (Auto) Lymph # (Auto) [place] # (Auto) Baso # (Auto) Seg Neutrophils % Seg Neuts % (Manual) Lymphocytes % (Manual) Nucleated RBC % Seg Neutrophils # Seg Neutrophils # Man Lymphocytes # (Manual) D-Dimer ABG pH POC ABG pCO2 63.6 H POC ABG pO2 55.0 L ABG pO2 ABG HCO3 ABG O2 Saturation ABG Base Excess ABG Hemoglobin 11.1 L ABG Oxyhemoglobin 87.3 L ABG Sodium 130.7 L ABG Potassium ABG Chloride 89.0 L ABG Glucose 211 H Oxyhemoglobin Carboxyhemoglobin Sodium Potassium Chloride Carbon Dioxide BUN Creatinine Glucose POC Glucose 139 H Hemoglobin A1c Lactic Acid Calcium Magnesium Ferritin Total Bilirubin AST ALT Alkaline Phosphatase Lactate Dehydrogenase Total Creatine Kinase C-Reactive Protein Total Protein Albumin Triglycerides Arterial Blood Glucose 211 H Arterial Blood Ionized Calcium 4.3 L Ur Specific [place] Urine WBC (Auto) Vancomycin Trough Coronavirus (PCR) 12/16/20 12/16/20 12/16/20 04:46 05:34 11:40 WBC RBC Hgb Hct RDW Plt Count Lymph % (Auto) [place] % (Auto) Lymph # (Auto) [place] # (Auto) Baso # (Auto) Seg Neutrophils % Seg Neuts % (Manual) Lymphocytes % (Manual) Nucleated RBC % Seg Neutrophils # Seg Neutrophils # Man Lymphocytes # (Manual) D-Dimer ABG pH POC ABG pCO2 POC ABG pO2 ABG pO2 ABG HCO3 ABG O2 Saturation ABG Base Excess ABG Hemoglobin ABG Oxyhemoglobin ABG Sodium ABG Potassium ABG Chloride ABG Glucose Oxyhemoglobin Carboxyhemoglobin Sodium 134 L Potassium Chloride 89.7 L Carbon Dioxide 38 H BUN Creatinine < 0.2 L Glucose 203 H POC Glucose 155 H 239 H Hemoglobin A1c Lactic Acid Calcium 7.5 L Magnesium Ferritin Total Bilirubin AST ALT Alkaline Phosphatase Lactate Dehydrogenase Total Creatine Kinase C-Reactive Protein Total Protein Albumin Triglycerides Arterial Blood Glucose Arterial Blood Ionized Calcium Ur Specific [place] Urine WBC (Auto) Vancomycin Trough Coronavirus (PCR) 12/16/20 12/16/20 12/17/20 17:42 23:45 03:59 WBC RBC Hgb Hct RDW Plt Count Lymph % (Auto) [place] % (Auto) Lymph # (Auto) [place] # (Auto) Baso # (Auto) Seg Neutrophils % Seg Neuts % (Manual) Lymphocytes % (Manual) Nucleated RBC % Seg Neutrophils # Seg Neutrophils # Man Lymphocytes # (Manual) D-Dimer ABG pH POC ABG pCO2 71.9 H POC ABG pO2 57.5 L ABG pO2 ABG HCO3 ABG O2 Saturation ABG Base Excess ABG Hemoglobin 10.8 L ABG Oxyhemoglobin 87.7 L ABG Sodium 131.5 L ABG Potassium ABG Chloride 90.0 L ABG Glucose 199 H Oxyhemoglobin Carboxyhemoglobin Sodium Potassium Chloride Carbon Dioxide BUN Creatinine Glucose POC Glucose 228 H 187 H Hemoglobin A1c Lactic Acid Calcium Magnesium Ferritin Total Bilirubin AST ALT Alkaline Phosphatase Lactate Dehydrogenase Total Creatine Kinase C-Reactive Protein Total Protein Albumin Triglycerides Arterial Blood Glucose 199 H Arterial Blood Ionized Calcium 4.4 L Ur Specific [place] Urine WBC (Auto) Vancomycin Trough Coronavirus (PCR) 12/17/20 12/17/20 12/17/20 05:35 11:55 17:25 WBC RBC Hgb Hct RDW Plt Count Lymph % (Auto) [place] % (Auto) Lymph # (Auto) [place] # (Auto) Baso # (Auto) Seg Neutrophils % Seg Neuts % (Manual) Lymphocytes % (Manual) Nucleated RBC % Seg Neutrophils # Seg Neutrophils # Man Lymphocytes # (Manual) D-Dimer ABG pH POC ABG pCO2 POC ABG pO2 ABG pO2 ABG HCO3 ABG O2 Saturation ABG Base Excess ABG Hemoglobin ABG Oxyhemoglobin ABG Sodium ABG Potassium ABG Chloride ABG Glucose Oxyhemoglobin Carboxyhemoglobin Sodium 134 L Potassium Chloride 89.6 L Carbon Dioxide 44 H* BUN Creatinine 0.2 L Glucose 280 H POC Glucose 159 H 181 H Hemoglobin A1c Lactic Acid Calcium 8.0 L Magnesium 1.60 L Ferritin Total Bilirubin AST ALT Alkaline Phosphatase Lactate Dehydrogenase Total Creatine Kinase C-Reactive Protein Total Protein 6.2 L Albumin 2.1 L Triglycerides Arterial Blood Glucose Arterial Blood Ionized Calcium Ur Specific [place] Urine WBC (Auto) Vancomycin Trough Coronavirus (PCR) 12/17/20 12/17/20 12/18/20 17:25 17:51 00:12 WBC RBC Hgb Hct RDW Plt Count Lymph % (Auto) [place] % (Auto) Lymph # (Auto) [place] # (Auto) Baso # (Auto) Seg Neutrophils % Seg Neuts % (Manual) Lymphocytes % (Manual) Nucleated RBC % Seg Neutrophils # Seg Neutrophils # Man Lymphocytes # (Manual) D-Dimer ABG pH POC ABG pCO2 POC ABG pO2 ABG pO2 ABG HCO3 ABG O2 Saturation ABG Base Excess ABG Hemoglobin ABG Oxyhemoglobin ABG Sodium ABG Potassium ABG Chloride ABG Glucose Oxyhemoglobin Carboxyhemoglobin Sodium Potassium Chloride Carbon Dioxide BUN Creatinine Glucose POC Glucose 260 H 197 H Hemoglobin A1c Lactic Acid Calcium Magnesium Ferritin Total Bilirubin AST ALT Alkaline Phosphatase Lactate Dehydrogenase Total Creatine Kinase 47 L C-Reactive Protein Total Protein Albumin Triglycerides Arterial Blood Glucose Arterial Blood Ionized Calcium Ur Specific [place] Urine WBC (Auto) Vancomycin Trough Coronavirus (PCR) 12/18/20 12/18/20 12/18/20 03:56 04:32 04:32 WBC RBC 2.88 L Hgb 8.6 L Hct 26.0 L RDW 15.6 H Plt Count Lymph % (Auto) [place] % (Auto) Lymph # (Auto) [place] # (Auto) Baso # (Auto) Seg Neutrophils % Seg Neuts % (Manual) Lymphocytes % (Manual) Nucleated RBC % Seg Neutrophils # Seg Neutrophils # Man Lymphocytes # (Manual) D-Dimer ABG pH POC ABG pCO2 78.0 H POC ABG pO2 52.3 L ABG pO2 ABG HCO3 ABG O2 Saturation ABG Base Excess ABG Hemoglobin 11.7 L ABG Oxyhemoglobin 84.9 L ABG Sodium 131.6 L ABG Potassium ABG Chloride 89.0 L ABG Glucose 191 H Oxyhemoglobin Carboxyhemoglobin Sodium 134 L Potassium Chloride 89.5 L Carbon Dioxide 43 H* BUN Creatinine < 0.2 L Glucose 182 H POC Glucose Hemoglobin A1c Lactic Acid Calcium 8.1 L Magnesium Ferritin Total Bilirubin AST ALT Alkaline Phosphatase Lactate Dehydrogenase Total Creatine Kinase C-Reactive Protein Total Protein Albumin Triglycerides Arterial Blood Glucose 191 H Arterial Blood Ionized Calcium 4.4 L Ur Specific [place] Urine WBC (Auto) Vancomycin Trough Coronavirus (PCR) 12/18/20 12/18/20 12/18/20 05:19 08:27 11:37 WBC RBC Hgb Hct RDW Plt Count Lymph % (Auto) [place] % (Auto) Lymph # (Auto) [place] # (Auto) Baso # (Auto) Seg Neutrophils % Seg Neuts % (Manual) Lymphocytes % (Manual) Nucleated RBC % Seg Neutrophils # Seg Neutrophils # Man Lymphocytes # (Manual) D-Dimer ABG pH POC ABG pCO2 POC ABG pO2 ABG pO2 ABG HCO3 ABG O2 Saturation ABG Base Excess ABG Hemoglobin ABG Oxyhemoglobin ABG Sodium ABG Potassium ABG Chloride ABG Glucose Oxyhemoglobin Carboxyhemoglobin Sodium 131 L Potassium Chloride 89.0 L Carbon Dioxide 41 H* BUN Creatinine < 0.2 L Glucose 176 H POC Glucose 165 H 174 H Hemoglobin A1c Lactic Acid Calcium 7.5 L Magnesium Ferritin Total Bilirubin AST ALT Alkaline Phosphatase Lactate Dehydrogenase Total Creatine Kinase C-Reactive Protein Total Protein Albumin Triglycerides Arterial Blood Glucose Arterial Blood Ionized Calcium Ur Specific [place] Urine WBC (Auto) Vancomycin Trough Coronavirus (PCR) 12/18/20 12/18/20 12/19/20 17:26 23:19 03:41 WBC RBC Hgb Hct RDW Plt Count Lymph % (Auto) [place] % (Auto) Lymph # (Auto) [place] # (Auto) Baso # (Auto) Seg Neutrophils % Seg Neuts % (Manual) Lymphocytes % (Manual) Nucleated RBC % Seg Neutrophils # Seg Neutrophils # Man Lymphocytes # (Manual) D-Dimer ABG pH POC ABG pCO2 75.4 H POC ABG pO2 50.7 L ABG pO2 ABG HCO3 ABG O2 Saturation ABG Base Excess ABG Hemoglobin 10.4 L ABG Oxyhemoglobin 84.2 L ABG Sodium 131.1 L ABG Potassium ABG Chloride 89.0 L ABG Glucose 194 H Oxyhemoglobin Carboxyhemoglobin 1.6 H Sodium Potassium Chloride Carbon Dioxide BUN Creatinine Glucose POC Glucose 243 H 212 H Hemoglobin A1c Lactic Acid Calcium Magnesium Ferritin Total Bilirubin AST ALT Alkaline Phosphatase Lactate Dehydrogenase Total Creatine Kinase C-Reactive Protein Total Protein Albumin Triglycerides Arterial Blood Glucose 194 H Arterial Blood Ionized Calcium 4.3 L Ur Specific [place] Urine WBC (Auto) Vancomycin Trough Coronavirus (PCR) 12/19/20 12/19/20 12/19/20 05:26 11:56 18:17 WBC RBC Hgb Hct RDW Plt Count Lymph % (Auto) [place] % (Auto) Lymph # (Auto) [place] # (Auto) Baso # (Auto) Seg Neutrophils % Seg Neuts % (Manual) Lymphocytes % (Manual) Nucleated RBC % Seg Neutrophils # Seg Neutrophils # Man Lymphocytes # (Manual) D-Dimer ABG pH POC ABG pCO2 POC ABG pO2 ABG pO2 ABG HCO3 ABG O2 Saturation ABG Base Excess ABG Hemoglobin ABG Oxyhemoglobin ABG Sodium ABG Potassium ABG Chloride ABG Glucose Oxyhemoglobin Carboxyhemoglobin Sodium Potassium Chloride Carbon Dioxide BUN Creatinine Glucose POC Glucose 166 H 173 H 212 H Hemoglobin A1c Lactic Acid Calcium Magnesium Ferritin Total Bilirubin AST ALT Alkaline Phosphatase Lactate Dehydrogenase Total Creatine Kinase C-Reactive Protein Total Protein Albumin Triglycerides Arterial Blood Glucose Arterial Blood Ionized Calcium Ur Specific [place] Urine WBC (Auto) Vancomycin Trough Coronavirus (PCR) 12/19/20 12/19/20 12/20/20 23:39 Unknown 03:26 WBC RBC Hgb Hct RDW Plt Count Lymph % (Auto) [place] % (Auto) Lymph # (Auto) [place] # (Auto) Baso # (Auto) Seg Neutrophils % Seg Neuts % (Manual) Lymphocytes % (Manual) Nucleated RBC % Seg Neutrophils # Seg Neutrophils # Man Lymphocytes # (Manual) D-Dimer ABG pH POC ABG pCO2 74.2 H POC ABG pO2 51.3 L ABG pO2 ABG HCO3 ABG O2 Saturation ABG Base Excess ABG Hemoglobin 10.0 L ABG Oxyhemoglobin ABG Sodium 128.9 L ABG Potassium ABG Chloride 87.0 L ABG Glucose 173 H Oxyhemoglobin Carboxyhemoglobin Sodium 133 L Potassium Chloride 89.9 L Carbon Dioxide 39 H BUN Creatinine 0.2 L Glucose 197 H POC Glucose 133 H Hemoglobin A1c Lactic Acid Calcium 7.6 L Magnesium Ferritin Total Bilirubin AST ALT Alkaline Phosphatase Lactate Dehydrogenase Total Creatine Kinase C-Reactive Protein Total Protein Albumin Triglycerides Arterial Blood Glucose 173 H Arterial Blood Ionized Calcium 4.1 L Ur Specific [place] Urine WBC (Auto) Vancomycin Trough Coronavirus (PCR) 12/20/20 12/20/20 12/20/20 04:00 04:00 05:05 WBC RBC 3.21 L Hgb 9.6 L Hct 29.2 L RDW 15.8 H Plt Count Lymph % (Auto) [place] % (Auto) Lymph # (Auto) [place] # (Auto) Baso # (Auto) Seg Neutrophils % Seg Neuts % (Manual) Lymphocytes % (Manual) Nucleated RBC % Seg Neutrophils # Seg Neutrophils # Man Lymphocytes # (Manual) D-Dimer ABG pH POC ABG pCO2 POC ABG pO2 ABG pO2 ABG HCO3 ABG O2 Saturation ABG Base Excess ABG Hemoglobin ABG Oxyhemoglobin ABG Sodium ABG Potassium ABG Chloride ABG Glucose Oxyhemoglobin Carboxyhemoglobin Sodium 132 L Potassium Chloride 86.0 L Carbon Dioxide 43 H* BUN Creatinine 0.2 L Glucose 193 H POC Glucose 171 H Hemoglobin A1c Lactic Acid Calcium 7.6 L Magnesium Ferritin Total Bilirubin AST ALT Alkaline Phosphatase Lactate Dehydrogenase Total Creatine Kinase C-Reactive Protein Total Protein Albumin Triglycerides Arterial Blood Glucose Arterial Blood Ionized Calcium Ur Specific [place] Urine WBC (Auto) Vancomycin Trough Coronavirus (PCR) 12/20/20 12/20/20 12/20/20 11:47 18:18 23:41 WBC RBC Hgb Hct RDW Plt Count Lymph % (Auto) [place] % (Auto) Lymph # (Auto) [place] # (Auto) Baso # (Auto) Seg Neutrophils % Seg Neuts % (Manual) Lymphocytes % (Manual) Nucleated RBC % Seg Neutrophils # Seg Neutrophils # Man Lymphocytes # (Manual) D-Dimer ABG pH POC ABG pCO2 POC ABG pO2 ABG pO2 ABG HCO3 ABG O2 Saturation ABG Base Excess ABG Hemoglobin ABG Oxyhemoglobin ABG Sodium ABG Potassium ABG Chloride ABG Glucose Oxyhemoglobin Carboxyhemoglobin Sodium Potassium Chloride Carbon Dioxide BUN Creatinine Glucose POC Glucose 238 H 205 H 167 H Hemoglobin A1c Lactic Acid Calcium Magnesium Ferritin Total Bilirubin AST ALT Alkaline Phosphatase Lactate Dehydrogenase Total Creatine Kinase C-Reactive Protein Total Protein Albumin Triglycerides Arterial Blood Glucose Arterial Blood Ionized Calcium Ur Specific [place] Urine WBC (Auto) Vancomycin Trough Coronavirus (PCR) 12/21/20 12/21/20 12/21/20 03:30 05:37 09:57 WBC RBC Hgb Hct RDW Plt Count Lymph % (Auto) [place] % (Auto) Lymph # (Auto) [place] # (Auto) Baso # (Auto) Seg Neutrophils % Seg Neuts % (Manual) Lymphocytes % (Manual) Nucleated RBC % Seg Neutrophils # Seg Neutrophils # Man Lymphocytes # (Manual) D-Dimer ABG pH POC ABG pCO2 73.4 H POC ABG pO2 63.0 L ABG pO2 ABG HCO3 ABG O2 Saturation ABG Base Excess ABG Hemoglobin 10.1 L ABG Oxyhemoglobin ABG Sodium 130.5 L ABG Potassium ABG Chloride 89.0 L ABG Glucose 171 H Oxyhemoglobin Carboxyhemoglobin Sodium 132 L Potassium Chloride 87.7 L Carbon Dioxide 42 H* BUN Creatinine 0.2 L Glucose 207 H POC Glucose 152 H Hemoglobin A1c Lactic Acid Calcium 7.7 L Magnesium Ferritin Total Bilirubin AST ALT Alkaline Phosphatase Lactate Dehydrogenase Total Creatine Kinase C-Reactive Protein Total Protein Albumin Triglycerides Arterial Blood Glucose 171 H Arterial Blood Ionized Calcium 4.2 L Ur Specific [place] Urine WBC (Auto) Vancomycin Trough Coronavirus (PCR) 12/21/20 12/21/20 12/21/20 12:54 18:00 Unknown WBC RBC Hgb Hct RDW Plt Count Lymph % (Auto) [place] % (Auto) Lymph # (Auto) [place] # (Auto) Baso # (Auto) Seg Neutrophils % Seg Neuts % (Manual) Lymphocytes % (Manual) Nucleated RBC % Seg Neutrophils # Seg Neutrophils # Man Lymphocytes # (Manual) D-Dimer ABG pH POC ABG pCO2 POC ABG pO2 ABG pO2 ABG HCO3 ABG O2 Saturation ABG Base Excess ABG Hemoglobin ABG Oxyhemoglobin ABG Sodium ABG Potassium ABG Chloride ABG Glucose Oxyhemoglobin Carboxyhemoglobin Sodium Potassium Chloride Carbon Dioxide BUN Creatinine Glucose POC Glucose 199 H 217 H Hemoglobin A1c Lactic Acid Calcium Magnesium Ferritin Total Bilirubin AST ALT Alkaline Phosphatase Lactate Dehydrogenase Total Creatine Kinase C-Reactive Protein Total Protein Albumin Triglycerides Arterial Blood Glucose Arterial Blood Ionized Calcium Ur Specific [place] Urine WBC (Auto) 172.0 H Vancomycin Trough Coronavirus (PCR) 12/22/20 12/22/20 12/22/20 00:02 04:08 05:19 WBC RBC Hgb Hct RDW Plt Count Lymph % (Auto) [place] % (Auto) Lymph # (Auto) [place] # (Auto) Baso # (Auto) Seg Neutrophils % Seg Neuts % (Manual) Lymphocytes % (Manual) Nucleated RBC % Seg Neutrophils # Seg Neutrophils # Man Lymphocytes # (Manual) D-Dimer ABG pH POC ABG pCO2 67.6 H POC ABG pO2 57.3 L ABG pO2 ABG HCO3 ABG O2 Saturation ABG Base Excess ABG Hemoglobin ABG Oxyhemoglobin ABG Sodium 130.9 L ABG Potassium ABG Chloride 92.0 L ABG Glucose 163 H Oxyhemoglobin Carboxyhemoglobin Sodium Potassium Chloride Carbon Dioxide BUN Creatinine Glucose POC Glucose 172 H 151 H Hemoglobin A1c Lactic Acid Calcium Magnesium Ferritin Total Bilirubin AST ALT Alkaline Phosphatase Lactate Dehydrogenase Total Creatine Kinase C-Reactive Protein Total Protein Albumin Triglycerides Arterial Blood Glucose 163 H Arterial Blood Ionized Calcium 4.2 L Ur Specific [place] Urine WBC (Auto) Vancomycin Trough Coronavirus (PCR) 12/22/20 12/22/20 12/22/20 11:33 17:20 23:25 WBC RBC Hgb Hct RDW Plt Count Lymph % (Auto) [place] % (Auto) Lymph # (Auto) [place] # (Auto) Baso # (Auto) Seg Neutrophils % Seg Neuts % (Manual) Lymphocytes % (Manual) Nucleated RBC % Seg Neutrophils # Seg Neutrophils # Man Lymphocytes # (Manual) D-Dimer ABG pH POC ABG pCO2 POC ABG pO2 ABG pO2 ABG HCO3 ABG O2 Saturation ABG Base Excess ABG Hemoglobin ABG Oxyhemoglobin ABG Sodium ABG Potassium ABG Chloride ABG Glucose Oxyhemoglobin Carboxyhemoglobin Sodium Potassium Chloride Carbon Dioxide BUN Creatinine Glucose POC Glucose 181 H 166 H 121 H Hemoglobin A1c Lactic Acid Calcium Magnesium Ferritin Total Bilirubin AST ALT Alkaline Phosphatase Lactate Dehydrogenase Total Creatine Kinase C-Reactive Protein Total Protein Albumin Triglycerides Arterial Blood Glucose Arterial Blood Ionized Calcium Ur Specific [place] Urine WBC (Auto) Vancomycin Trough Coronavirus (PCR) 12/23/20 12/23/20 12/23/20 05:19 05:32 06:07 WBC RBC Hgb Hct RDW Plt Count Lymph % (Auto) [place] % (Auto) Lymph # (Auto) [place] # (Auto) Baso # (Auto) Seg Neutrophils % Seg Neuts % (Manual) Lymphocytes % (Manual) Nucleated RBC % Seg Neutrophils # Seg Neutrophils # Man Lymphocytes # (Manual) D-Dimer ABG pH POC ABG pCO2 67.7 H POC ABG pO2 53.7 L ABG pO2 ABG HCO3 ABG O2 Saturation ABG Base Excess ABG Hemoglobin 9.6 L ABG Oxyhemoglobin ABG Sodium 130.2 L ABG Potassium ABG Chloride 88.0 L ABG Glucose 195 H Oxyhemoglobin Carboxyhemoglobin Sodium 135 L Potassium Chloride 89.3 L Carbon Dioxide 43 H* BUN Creatinine 0.2 L Glucose 193 H POC Glucose 167 H Hemoglobin A1c Lactic Acid Calcium 7.4 L Magnesium Ferritin Total Bilirubin AST ALT Alkaline Phosphatase Lactate Dehydrogenase Total Creatine Kinase C-Reactive Protein Total Protein Albumin Triglycerides Arterial Blood Glucose 195 H Arterial Blood Ionized Calcium 4.1 L Ur Specific [place] Urine WBC (Auto) Vancomycin Trough Coronavirus (PCR) 12/23/20 12/23/20 12/23/20 11:21 18:10 23:21 WBC RBC Hgb Hct RDW Plt Count Lymph % (Auto) [place] % (Auto) Lymph # (Auto) [place] # (Auto) Baso # (Auto) Seg Neutrophils % Seg Neuts % (Manual) Lymphocytes % (Manual) Nucleated RBC % Seg Neutrophils # Seg Neutrophils # Man Lymphocytes # (Manual) D-Dimer ABG pH POC ABG pCO2 POC ABG pO2 ABG pO2 ABG HCO3 ABG O2 Saturation ABG Base Excess ABG Hemoglobin ABG Oxyhemoglobin ABG Sodium ABG Potassium ABG Chloride ABG Glucose Oxyhemoglobin Carboxyhemoglobin Sodium Potassium Chloride Carbon Dioxide BUN Creatinine Glucose POC Glucose 155 H 178 H 126 H Hemoglobin A1c Lactic Acid Calcium Magnesium Ferritin Total Bilirubin AST ALT Alkaline Phosphatase Lactate Dehydrogenase Total Creatine Kinase C-Reactive Protein Total Protein Albumin Triglycerides Arterial Blood Glucose Arterial Blood Ionized Calcium Ur Specific [place] Urine WBC (Auto) Vancomycin Trough Coronavirus (PCR) 12/24/20 12/24/20 12/24/20 04:49 05:00 05:19 WBC RBC Hgb Hct RDW Plt Count Lymph % (Auto) [place] % (Auto) Lymph # (Auto) [place] # (Auto) Baso # (Auto) Seg Neutrophils % Seg Neuts % (Manual) Lymphocytes % (Manual) Nucleated RBC % Seg Neutrophils # Seg Neutrophils # Man Lymphocytes # (Manual) D-Dimer ABG pH POC ABG pCO2 75.5 H POC ABG pO2 50.5 L ABG pO2 ABG HCO3 ABG O2 Saturation ABG Base Excess ABG Hemoglobin 8.8 L ABG Oxyhemoglobin 86.3 L ABG Sodium 131.6 L ABG Potassium ABG Chloride 88.0 L ABG Glucose 186 H Oxyhemoglobin Carboxyhemoglobin 2.1 H Sodium Potassium Chloride Carbon Dioxide BUN Creatinine Glucose POC Glucose 162 H Hemoglobin A1c Lactic Acid Calcium Magnesium Ferritin Total Bilirubin AST ALT Alkaline Phosphatase Lactate Dehydrogenase Total Creatine Kinase C-Reactive Protein Total Protein Albumin Triglycerides 486 H Arterial Blood Glucose 186 H Arterial Blood Ionized Calcium 4.0 L Ur Specific [place] Urine WBC (Auto) Vancomycin Trough Coronavirus (PCR) 12/24/20 12/24/20 12/24/20 11:57 16:44 17:28 WBC RBC Hgb Hct RDW Plt Count Lymph % (Auto) [place] % (Auto) Lymph # (Auto) [place] # (Auto) Baso # (Auto) Seg Neutrophils % Seg Neuts % (Manual) Lymphocytes % (Manual) Nucleated RBC % Seg Neutrophils # Seg Neutrophils # Man Lymphocytes # (Manual) D-Dimer ABG pH 7.250 L POC ABG pCO2 102.6 H POC ABG pO2 42.4 L ABG pO2 ABG HCO3 ABG O2 Saturation ABG Base Excess ABG Hemoglobin 9.0 L ABG Oxyhemoglobin 69.9 L ABG Sodium 131.1 L ABG Potassium ABG Chloride 89.0 L ABG Glucose 211 H Oxyhemoglobin Carboxyhemoglobin 1.7 H Sodium Potassium Chloride Carbon Dioxide BUN Creatinine Glucose POC Glucose 163 H 191 H Hemoglobin A1c Lactic Acid Calcium Magnesium Ferritin Total Bilirubin AST ALT Alkaline Phosphatase Lactate Dehydrogenase Total Creatine Kinase C-Reactive Protein Total Protein Albumin Triglycerides Arterial Blood Glucose 211 H Arterial Blood Ionized Calcium 4.0 L Ur Specific [place] Urine WBC (Auto) Vancomycin Trough Coronavirus (PCR) 12/24/20 12/24/20 12/24/20 18:57 20:48 23:31 WBC 19.1 H RBC 2.91 L Hgb 8.3 L Hct 26.0 L RDW 16.0 H Plt Count Lymph % (Auto) [place] % (Auto) Lymph # (Auto) [place] # (Auto) Baso # (Auto) Seg Neutrophils % Seg Neuts % (Manual) 92.0 H Lymphocytes % (Manual) 5.0 L Nucleated RBC % Seg Neutrophils # Seg Neutrophils # Man 17.6 H Lymphocytes # (Manual) 1.0 L D-Dimer ABG pH POC ABG pCO2 82.1 H POC ABG pO2 38.6 L ABG pO2 ABG HCO3 ABG O2 Saturation ABG Base Excess ABG Hemoglobin 9.3 L ABG Oxyhemoglobin 70.8 L ABG Sodium 130.7 L ABG Potassium ABG Chloride 89.0 L ABG Glucose 226 H Oxyhemoglobin Carboxyhemoglobin 1.8 H Sodium Potassium Chloride Carbon Dioxide BUN Creatinine Glucose POC Glucose 181 H Hemoglobin A1c Lactic Acid Calcium Magnesium Ferritin Total Bilirubin AST ALT Alkaline Phosphatase Lactate Dehydrogenase Total Creatine Kinase C-Reactive Protein Total Protein Albumin Triglycerides Arterial Blood Glucose 226 H Arterial Blood Ionized Calcium 4.1 L Ur Specific [place] Urine WBC (Auto) Vancomycin Trough Coronavirus (PCR) 12/25/20 12/25/20 12/25/20 04:04 06:31 11:17 WBC RBC Hgb Hct RDW Plt Count Lymph % (Auto) [place] % (Auto) Lymph # (Auto) [place] # (Auto) Baso # (Auto) Seg Neutrophils % Seg Neuts % (Manual) Lymphocytes % (Manual) Nucleated RBC % Seg Neutrophils # Seg Neutrophils # Man Lymphocytes # (Manual) D-Dimer ABG pH POC ABG pCO2 75.6 H POC ABG pO2 43.3 L ABG pO2 ABG HCO3 ABG O2 Saturation ABG Base Excess ABG Hemoglobin 10.6 L ABG Oxyhemoglobin 77.6 L ABG Sodium 131.4 L ABG Potassium ABG Chloride 90.0 L ABG Glucose 185 H Oxyhemoglobin Carboxyhemoglobin 2.4 H Sodium Potassium Chloride Carbon Dioxide BUN Creatinine Glucose POC Glucose 153 H Hemoglobin A1c Lactic Acid Calcium Magnesium Ferritin Total Bilirubin AST ALT Alkaline Phosphatase Lactate Dehydrogenase Total Creatine Kinase C-Reactive Protein Total Protein Albumin Triglycerides 328 H Arterial Blood Glucose 185 H Arterial Blood Ionized Calcium 4.1 L Ur Specific [place] Urine WBC (Auto) Vancomycin Trough Coronavirus (PCR) 12/25/20 12/25/20 12/25/20 11:17 11:17 12:07 WBC 19.6 H RBC 2.82 L Hgb 8.1 L Hct 25.2 L RDW 16.2 H Plt Count Lymph % (Auto) [place] % (Auto) Lymph # (Auto) [place] # (Auto) Baso # (Auto) Seg Neutrophils % Seg Neuts % (Manual) Lymphocytes % (Manual) Nucleated RBC % Seg Neutrophils # Seg Neutrophils # Man Lymphocytes # (Manual) D-Dimer ABG pH POC ABG pCO2 POC ABG pO2 ABG pO2 ABG HCO3 ABG O2 Saturation ABG Base Excess ABG Hemoglobin ABG Oxyhemoglobin ABG Sodium ABG Potassium ABG Chloride ABG Glucose Oxyhemoglobin Carboxyhemoglobin Sodium 136 L Potassium Chloride 92.3 L Carbon Dioxide 44 H* BUN Creatinine 0.3 L Glucose 240 H POC Glucose 210 H Hemoglobin A1c Lactic Acid Calcium 7.3 L Magnesium Ferritin Total Bilirubin AST ALT Alkaline Phosphatase Lactate Dehydrogenase Total Creatine Kinase C-Reactive Protein Total Protein Albumin Triglycerides Arterial Blood Glucose Arterial Blood Ionized Calcium Ur Specific [place] Urine WBC (Auto) Vancomycin Trough Coronavirus (PCR) 12/25/20 12/25/20 12/25/20 17:52 21:49 23:47 WBC RBC Hgb Hct RDW Plt Count Lymph % (Auto) [place] % (Auto) Lymph # (Auto) [place] # (Auto) Baso # (Auto) Seg Neutrophils % Seg Neuts % (Manual) Lymphocytes % (Manual) Nucleated RBC % Seg Neutrophils # Seg Neutrophils # Man Lymphocytes # (Manual) D-Dimer ABG pH POC ABG pCO2 POC ABG pO2 ABG pO2 ABG HCO3 ABG O2 Saturation ABG Base Excess ABG Hemoglobin ABG Oxyhemoglobin ABG Sodium ABG Potassium ABG Chloride ABG Glucose Oxyhemoglobin Carboxyhemoglobin Sodium Potassium Chloride Carbon Dioxide BUN Creatinine Glucose POC Glucose 188 H 152 H 138 H Hemoglobin A1c Lactic Acid Calcium Magnesium Ferritin Total Bilirubin AST ALT Alkaline Phosphatase Lactate Dehydrogenase Total Creatine Kinase C-Reactive Protein Total Protein Albumin Triglycerides Arterial Blood Glucose Arterial Blood Ionized Calcium Ur Specific [place] Urine WBC (Auto) Vancomycin Trough Coronavirus (PCR) 12/26/20 12/26/20 12/26/20 04:00 05:20 05:26 WBC RBC Hgb Hct RDW Plt Count Lymph % (Auto) [place] % (Auto) Lymph # (Auto) [place] # (Auto) Baso # (Auto) Seg Neutrophils % Seg Neuts % (Manual) Lymphocytes % (Manual) Nucleated RBC % Seg Neutrophils # Seg Neutrophils # Man Lymphocytes # (Manual) D-Dimer ABG pH POC ABG pCO2 73.4 H POC ABG pO2 58.8 L ABG pO2 ABG HCO3 ABG O2 Saturation ABG Base Excess ABG Hemoglobin 7.4 L ABG Oxyhemoglobin ABG Sodium 135.2 L ABG Potassium ABG Chloride 96.0 L ABG Glucose 164 H Oxyhemoglobin Carboxyhemoglobin Sodium Potassium Chloride Carbon Dioxide BUN Creatinine Glucose POC Glucose 147 H Hemoglobin A1c Lactic Acid Calcium Magnesium Ferritin Total Bilirubin AST ALT Alkaline Phosphatase Lactate Dehydrogenase Total Creatine Kinase C-Reactive Protein Total Protein Albumin Triglycerides 307 H Arterial Blood Glucose 164 H Arterial Blood Ionized Calcium 4.1 L Ur Specific [place] Urine WBC (Auto) Vancomycin Trough Coronavirus (PCR) 12/26/20 12/26/20 12/26/20 05:26 05:26 11:21 WBC 16.2 H RBC 2.75 L Hgb 7.8 L Hct 24.1 L RDW 16.3 H Plt Count 451 H Lymph % (Auto) [place] % (Auto) Lymph # (Auto) [place] # (Auto) Baso # (Auto) Seg Neutrophils % Seg Neuts % (Manual) 87.0 H Lymphocytes % (Manual) Nucleated RBC % 5.0 H Seg Neutrophils # Seg Neutrophils # Man 14.1 H Lymphocytes # (Manual) 0.0 L D-Dimer ABG pH POC ABG pCO2 POC ABG pO2 ABG pO2 ABG HCO3 ABG O2 Saturation ABG Base Excess ABG Hemoglobin ABG Oxyhemoglobin ABG Sodium ABG Potassium ABG Chloride ABG Glucose Oxyhemoglobin Carboxyhemoglobin Sodium Potassium Chloride 95.2 L Carbon Dioxide 44 H* BUN Creatinine 0.2 L Glucose 155 H POC Glucose 127 H Hemoglobin A1c Lactic Acid Calcium 7.4 L Magnesium Ferritin Total Bilirubin AST ALT Alkaline Phosphatase Lactate Dehydrogenase Total Creatine Kinase C-Reactive Protein Total Protein 6.0 L Albumin 1.6 L Triglycerides Arterial Blood Glucose Arterial Blood Ionized Calcium Ur Specific [place] Urine WBC (Auto) Vancomycin Trough Coronavirus (PCR)
[2020-12-26 13:30] LABS: Blood Urea Nitrogen 16 mg/dL (9-20); Calcium 7.3 mg/dL (8.4-10.2); Hemolysis Index 1
[2020-12-26 13:32] LABS: BUN/Creatinine Ratio 80
--- NOTE | 2020-12-26 14:03 | Progress Note ---
Assessment and Plan Assessment and plan: Plan -Continue antibiotic therapy-Zosyn -Pressors -Chest tube management as per surgery -Maintained on mechanical ventilation -Continue to monitor glucose levels -Continue supportive care -ID and critical care following -Prognosis is very poor DVT/GI prophylaxis: SCDs to bilateral lower extremities while in bed, Lovenox subcu, PPI Disposition: ICU Critical care statement The high probability of a clinically significant, sudden or life threatening deterioration of the [multi] system(s) required my full and direct attention, intervention and personal management. The aggregate critical care time was [60] minutes. This time is in addition to time spent performing reported procedures but includes the following: [x] Data Review and interpretation [x] Patient assessment and monitoring of vital signs [x] Documentation [x] Medication orders and management History Interval history: 59-year-old female who is smoker who presented to [facility] with shortness of breath cough fever weakness for 1 to 2 days prior to arrival. Per EMS the patient was severely hypoxic with saturations in the low 80s. With all oxygen and nonrebreather came down to low 90s. ID, pulmonary, CCM were consulted. Septic Shock Coag Negative staph/Entrococcus bactermia MRSA/Klebsiella in sputum COVID-19 pneumonia Acute hypoxic hypercapnic respiratory failure Bilateral pneumothorax Pneumomediastinum with subcutaneous emphysema Elevated D-dimer Transaminitis secondary to Covid 19 Klebsiella pneumonia Type 2 diabetes mellitus Severe protien calorie malnutrition secondary to critical illness Hyponatremia Hypochloremia Metabolic alkalosis Hypercapnia Hypoxemia 2/1: Patient continues on BiPAP throughout the night. Labs are remarkable for hypoxia with improving renal function but lactic acidosis without fever. CTA has been ordered to rule out pulmonary embolism. I agree with increasing enoxaparin to twice daily full dose for empiric treatment of pulmonary embolism. Will obtain ID consultation on further evaluation for possible underlying pneumonia versus COVID-19. We will also obtain echocardiogram for evaluation. Will discontinue fluids at this time. 2/2; Continue supportive care, Patient remains with very guarded prognosis, remains on BiPAP, continues on Remdesivir, and steroids. Will continue anticoagulation, unable to get CTA Chest due to patients unstable clinical status. Will adjust insulin for better blood glucose 2/3: Continues on BIPAP, no clear improvement at this time. Will continue steroids therapy Remdesivir and also Full anticoagulation at this time. Will update family. Discussed with Studio Manager. 2/4: Taking a break from the BiPAP on high flow and nonrebreather 100% with saturation of 90% becomes hypoxic with any movement. Studio Manager input noted will get a dose of Lasix today. Will await a discussion with ID for possibly increasing steroid. I updated Patient's Cousin, Tayla Esquivel who is the emergency contact agent. Blood sugar remains fluctuating secondary to steriods, Encouraged Prone positioning. Noted with mild hyponatremia we will continue to monitor and manage 11/20: Continue supportive care wean oxygen as tolerated prognosis remains guarded. Encouraged to progress as tolerated. Awaiting labs today. Discussed with nursing staff and patient at bedside. 11/21: Discontinued Dexamethasone as Solumedrol started secondary to increased oxygen demand. Will give additional insulin for better control. Continue oxygen support patient still on high flow. Prognosis still guarded 11/22: Patient was intubated and placed on mechanical ventilation. Continue current medication. Will check a.m. labs today. Noted still with hypotension. Doubt septic shock at this time as patient has no new fever. Will adjust insulin for better blood sugar control. 11/23: Patient admitted with COVID-19 despite all efforts patient remains severely hypoxic and now is intubated. Studio Manager input noted. Blood pressure marginal at this time. Very poor prognosis. Continue Solu-Medrol. 11/24. Patient remains very hypoxic. Blood pressure borderline. Plan for initiation of paralytic agents as per human anatomy teacher. Patient may need to be transferred if no improvement. 11/26. Off paralytics. Remains intubated. On steroids. Prognosis is poor. 11/27. Chest xray shows pneumomediastinum and subcutaneous emphysema. Surgery consulted. Plan for chest tube placement. Sputum culture grew MRSA. Patient started on vancomycin per ID. 11/28. Right chest tube placed yesterday by surgery. Repeat chest x-ray showed left small pneumothorax. Plan for chest tube placement on the left today. Remains on paralytic agents. 11/29. Remains intubated on vent. Had left chest tube placed yesterday. Vitals reviewed. Critical care following 11/30/ Remains on mechanical ventilation. Worsening hypoxia. Bilateral chest tubes in place. Vitals reviewed. Labs reviewed 12/01: Chest tube and mechanical ventilation remains in place, poor prognosis, FIO2 remains at 90%, adjust insulin for better blood glucose control 12/02: Patient remains on full ventilatory support and steroids, still with worsening leukocytosis ?inflammatory or infectious vs steroids. Continue vancomycin. 12/03; slowly weaning, 12/04: Still on the vent FiO2 down to 65% PEEP remains at 18. Still with poor prognosis. 12/05: Patient continues on full ventilatory support per human anatomy teacher PEEP remains at 18. Still with hypercapnic respiratory failure. FiO2 down to 60% this morning. Chest tube to suction still weaning off steroids in the deliberation ongoing for possible a third chest tube as last documentation by surgery shows no plan for it at this time. Continue to manage insulin for better blood sugar control. 12/06:weaned down to 60%, continue supportive care, unable to wean, 12/07; patient remains intubated on ventilatory support, chest tubes in place trach and PEG when patient's Covid test is negative,Per surgery. 12/08; Patient remains intubated remains with hypercapnia and hypoxia. Chest tube still remain in place. He is off antibiotics at this time. Continue steroids which is likely resultant to the leukocytosis. Studio Manager and surgeon following ID input is noted. Prognosis remains guarded to poor 12/10; patient remains intubated on vent, unable to wean awaiting trach and PEG when Covid test is negative, Continue current management 12/11; patient awaiting trach and PEG when Covid test is negative, vent dependent, poor prognosis 12/12; clinically no change, vent dependent, Patient is critically ill with very poor prognosis, awaiting trach and PEG when COVID-19 test turns negative. Plan discussed with nursing staff. Caregivers have discussed with patient's family periodically 12/13: Patient is critically ill with very poor prognosis, awaiting trach and PEG when COVID-19 test turns negative. Plan discussed with nursing staff. Caregivers have discussed with patient's family periodically 12/14: Increase UOP which we will monitor and replete as needed. Patient remain hypoxemic on ABG despite 100 FiO2, remains on fentanyl, precedex, versed and levo gtt. 12/15: Patient remains sedated on fentanyl at 3 mcg, Versed at 30 mg, dexamethason e 0.3 and was on Levophed 6 mcg this morning. Patient's vent settings rate of 30, tidal volume 425, PEEP of 18, FiO2 of 85. RT attempted to wean as tolerated. No acute events reported overnight. Bilateral chest tubes to wall suction. 12/16: Overnight the patient was noted to be bradycardic, Precedex drip was increased to 0.6/fentanyl to 4 mcg/Versed 5 mg, bilateral chest tube to suction. Current vent settings for 425/30/18/0.75, RT to wean as tolerated 12/17: Patient's T-max overnight was 101.2, obtain CXR today, blood culture x2 per ID. Patient remains on fentanyl, Versed, Precedex and Levophed. Current vent settings AC 425/30/18/0.75, RT to wean as tolerated. Continue steroid taper. 12/18: Patient remains sedated on fentanyl, Versed, Precedex and has vasopressor support of Levophed, current vent settings 425/30/18/0.75 with bilateral chest tubes to wall suction. Patient's blood culture from 12/17 grew gram-positive cocci in pairs and chains however the patient is on vancomycin and cefepime. We will continue to follow for speciation and sensitivity. 12/19: Unfortunately remains on full ventilatory support prognosis remains very poor. No new fever however since 12/17. Continue to follow cultures not finalized yet. Antibiotics per ID critical care management input noted. Daniela ent remains on high FiO2 and PEEP at this time. 12/20: Still with intermittent fever, likely secondary to covid 19, still with hyponatremia, continue with tube feed. cultures with coagulas negative staph, await further ID input. Continues on abx. 12/21: Patient remains on fentanyl, Precedex, Versed and Levophed and assist control for 25/30/18/.100 with bilateral chest tubes in place. Patient remains on antibiotic therapy. No acute events reported overnight. 12/22: Patient remains sedated on Precedex and fentanyl and on vasopressor support, blood cultures grew coag negative Staphylococcus and Enterococcus and antibiotic therapy was deescalated to ampicillin by infectious disease. This morning patient was on assist control for 25/30/18/0.100 and respiratory therapy to decrease FiO2 as tolerated. 12/23: Patient remains sedated on Versed, fentanyl, propofol, dexamethasone and vasopressor support with Levophed. Patient is on ampicillin with a T-max of 99 and current vent settings assist-control 425/30/18/0.90 which is being weaned as tolerated by RT. Patient bowel regimen escalated. 12/24: Patient was febrile overnight to 102, remains sedated on Versed, fentanyl, propofol and Precedex and on respiratory support with Levophed. This morning at the time my examination patient was on assist control 425/30/18/0.100. Patient's bowel regimen was escalated. This afternoon patient SPO2 dropped into the upper 60s and low 70s, patient was removed off the ventilator and bagged by RT with improvement in his SPO2 to mid 70s and his ventilator settings were adjusted with an increase in PEEP to 22 and reduction in tidal volume. Patient remained with SPO2 in the 70s to 80s then suddenly dropped his SPO2 again. A CXR was obtained and patient received 40 mg of IV Lasix. CXR showed pn eumothorax and general surgery was consulted for chest tube placement. Patient's existing right chest tube was replaced after removal. During chest tube was placed on the right side and a repeat CXR is being performed. Dr. German and Dr. Henry were kept up to date throughout the process and Dr. Henry was at beside during this time. I attempted to call Kehinde but was unable to contact him but left a voicemail. Jd was called and informed of changes with translation provided by Tayla. I spoke to them on the phone for over 30 minutes and explained the situation. They did not wish to change his CODE STATUS. Per CCM the patient respikes his temperature over the next 24 hours we will reculture his urine and blood. Patient remains on antibiotic therapy for 14 days per infectious disease 01/04/2021. Repeat blood cultures are negative. 12/25: Patient developed subcu emphysema on right chest and a repeat CXR shows minimal pneumothorax on the right chest wall which has not increased in size. At the time of my examination patient was on assist control 400/30/18/0.100 and the subcutaneous emphysema was noted after the patient's PEEP was increased. Patient remains sedated on Versed, fentanyl, Precedex and propofol with vasopressor support of Levophed. Patient's family decided to make the patient an AND and his CODE STATUS was updated. We will continue supportive care. Infe ctious disease has escalated antibiotic therapy to Zosyn. 12/26. Remains mechanically ventilated. On AC 30/400/100% PEEP 22. Not responsive. Sedated. On pressors. Labs reviewed. On antibiotics. Hospitalist Physical - Physical exam Narrative exam: VITAL SIGNS: Reviewed. GENERAL: Intubated HEAD: No signs of head trauma. EYES: Pupils are equal. NECK: No adenopathy, no JVD. CHEST: Diminished breath sound bilaterally. Subcutaneous emphysema. R & L chest tubes in place CARDIAC: normal S1 and S2, without murmurs, gallops, or rubs. ABDOMEN: Soft, non tender and non distended. No rebound or guarding, and no masses palpated. Bowel Sounds normal. MUSCULOSKELETAL: No edema NEUROLOGIC EXAM: Not responsive SKIN: No obvious lesions - Constitutional Vitals: Temp Pulse Resp BP Pulse Ox 99 F 84 30 H 100/55 95 12/26/20 12:00 12/26/20 13:15 12/26/20 13:15 12/26/20 13:15 12/26/20 13:15 HEART Score - HEART Score Troponin: Troponin T < 0.010 ng/mL (0.00-0.029) 12/11/20 06:30 Results - Labs CBC & Chem 7: 12/26/20 05:26 12/26/20 05:26 Labs: Laboratory Last Values WBC 16.2 K/mm3 (4.5-11.0) H 12/26/20 05:26 RBC 2.75 M/mm3 (3.65-5.03) L 12/26/20 05:26 Hgb 7.8 gm/dl (11.8-15.2) L 12/26/20 05:26 Hct 24.1 % (35.5-45.6) L 12/26/20 05:26 MCV 88 fl (84-94) 12/26/20 05:26 MCH 28 pg (28-32) 12/26/20 05:26 MCHC 32 % (32-34) 12/26/20 05:26 RDW 16.3 % (13.2-15.2) H 12/26/20 05:26 Plt Count 451 K/mm3 (140-440) H 12/26/20 05:26 Lymph % (Auto) 2.0 % (13.4-35.0) L 11/27/20 06:25 [place] % (Auto) 5.2 % (0.0-7.3) 11/27/20 06:25 Eos % (Auto) 0.0 % (0.0-4.3) 11/27/20 06:25 Baso % (Auto) 0.1 % (0.0-1.8) 11/27/20 06:25 Lymph # (Auto) 0.3 K/mm3 (1.2-5.4) L 11/27/20 06:25 [place] # (Auto) 0.7 K/mm3 (0.0-0.8) 11/27/20 06:25 Eos # (Auto) 0.0 K/mm3 (0.0-0.4) 11/27/20 06:25 Baso # (Auto) 0.0 K/mm3 (0.0-0.1) 11/27/20 06:25 Add Manual Diff Complete 12/26/20 05:26 Total Counted 100 12/26/20 05:26 Seg Neutrophils % Core Winder Machine Operator 12/24/20 18:57 Seg Neuts % (Manual) 87.0 % (40.0-70.0) H 12/26/20 05:26 Band Neutrophils % 6.0 % 12/26/20 05:26 Lymphocytes % (Manual) 5.0 % (13.4-35.0) L 12/24/20 18:57 Monocytes % (Manual) 3.0 % (0.0-7.3) 12/26/20 05:26 Metamyelocytes % 4.0 % 12/26/20 05:26 Nucleated RBC % 5.0 % (0.0-0.9) H 12/26/20 05:26 Seg Neutrophils # 12.7 K/mm3 (1.8-7.7) H 11/27/20 06:25 Seg Neutrophils # Man 14.1 K/mm3 (1.8-7.7) H 12/26/20 05:26 Band Neutrophils # 1.0 K/mm3 12/26/20 05:26 Lymphocytes # (Manual) 0.0 K/mm3 (1.2-5.4) L 12/26/20 05:26 Abs React Lymphs (Man) 0.0 K/mm3 12/26/20 05:26 Monocytes # (Manual) 0.5 K/mm3 (0.0-0.8) 12/26/20 05:26 Eosinophils # (Manual) 0.0 K/mm3 (0.0-0.4) 12/26/20 05:26 Basophils # (Manual) 0.0 K/mm3 (0.0-0.1) 12/26/20 05:26 Metamyelocytes # 0.6 K/mm3 12/26/20 05:26 Myelocytes # 0.0 K/mm3 12/26/20 05:26 Promyelocytes # 0.0 K/mm3 12/26/20 05:26 Blast Cells # 0.0 K/mm3 12/26/20 05:26 WBC Morphology Not Reportable 12/26/20 05:26 Hypersegmented Neuts Not Reportable 12/26/20 05:26 Hyposegmented Neuts Not Reportable 12/26/20 05:26 Hypogranular Neuts Not Reportable 12/26/20 05:26 Smudge Cells Not Reportable 12/26/20 05:26 Toxic Granulation Not Reportable 12/26/20 05:26 Toxic Vacuolation Not Reportable 12/26/20 05:26 Dohle Bodies Not Reportable 12/26/20 05:26 Pelger-Huet Anomaly Not Reportable 12/26/20 05:26 Tony Rods Not Reportable 12/26/20 05:26 Platelet Estimate Consistent w auto 12/26/20 05:26 Clumped Platelets Not Reportable 12/26/20 05:26 Plt Clumps, EDTA Not Reportable 12/26/20 05:26 Large Platelets Few 12/26/20 05:26 Giant Platelets Not Reportable 12/26/20 05:26 Platelet Satelliting Not Reportable 12/26/20 05:26 Plt Morphology Comment Not Reportable 12/26/20 05:26 RBC Morphology Not Reportable 12/26/20 05:26 Dimorphic RBCs Not Reportable 12/26/20 05:26 Polychromasia Few 12/26/20 05:26 Hypochromasia Not Reportable 12/26/20 05:26 Poikilocytosis Not Reportable 12/26/20 05:26 Anisocytosis Not Reportable 12/26/20 05:26 Microcytosis Not Reportable 12/26/20 05:26 Macrocytosis Not Reportable 12/26/20 05:26 Spherocytes Not Reportable 12/26/20 05:26 Pappenheimer Bodies Not Reportable 12/26/20 05:26 Sickle Cells Not Reportable 12/26/20 05:26 Target Cells Not Reportable 12/26/20 05:26 Tear Drop Cells Not Reportable 12/26/20 05:26 Ovalocytes Not Reportable 12/26/20 05:26 Stomatocytes Few 12/26/20 05:26 Helmet Cells Not Reportable 12/26/20 05:26 Cabrera-Dorado Bodies Not Reportable 12/26/20 05:26 [place] Rings Not Reportable 12/26/20 05:26 [place] Cells Not Reportable 12/26/20 05:26 Bite Cells Not Reportable 12/26/20 05:26 Crenated Cell Not Reportable 12/26/20 05:26 Elliptocytes Not Reportable 12/26/20 05:26 Acanthocytes (Spur) Not Reportable 12/26/20 05:26 Rouleaux Not Reportable 12/26/20 05:26 Hemoglobin C Crystals Not Reportable 12/26/20 05:26 Schistocytes Not Reportable 12/26/20 05:26 Malaria parasites Not Reportable 12/26/20 05:26 Yovani Bodies Not Reportable 12/26/20 05:26 Hem Pathologist Commnt No 12/26/20 05:26 D-Dimer 926.11 ng/mlDDU (0-234) H 11/26/20 06:04 ABG pH 7.396 (7.320-7.450) 12/26/20 04:00 POC ABG pCO2 73.4 mmHg (32.0-48.0) H 12/26/20 04:00 ABG pCO2 81.3 mm Hg 12/08/20 04:12 POC ABG pO2 58.8 mmHg (83-108) L 12/26/20 04:00 ABG pO2 69.7 mm Hg (80.0-90.0) L 12/08/20 04:12 POC ABG HCO3 44 12/26/20 04:00 ABG HCO3 50.1 mmol/L (20.0-26.0) H 12/08/20 04:12 ABG O2 Saturation 91.2 (0-100) 12/26/20 04:00 ABG O2 Content 13.0 (0.0-44) 12/07/20 05:20 POC ABG Base Excess 17.2 12/26/20 04:00 ABG Base Excess 21.6 mmol/L (-2.0-3.0) H 12/08/20 04:12 ABG Hemoglobin 7.4 (12.0-17.5) L 12/26/20 04:00 ABG Oxyhemoglobin 77.6 (94-98) L 12/25/20 04:04 ABG Carboxyhemoglobin 2.0 % (0.0-5.0) 12/08/20 04:12 ABG Methemoglobin 0.3 (0.0-1.5) 12/25/20 04:04 ABG Sodium 135.2 mmol/L (136.0-145.0) L 12/26/20 04:00 ABG Potassium 3.8 mmol/L (3.40-4.50) 12/26/20 04:00 ABG Chloride 96.0 mmol/L (98-107) L 12/26/20 04:00 ABG Glucose 164 mg/dL (65-95) H 12/26/20 04:00 Oxyhemoglobin 93.2 % (95.0-99.0) L 12/08/20 04:12 Carboxyhemoglobin 2.4 (0.5-1.5) H 12/25/20 04:04 FiO2 90 12/23/20 05:19 FiO2 % 100 12/26/20 04:00 Sodium 140 mmol/L (137-145) 12/26/20 05:26 Potassium 3.8 mmol/L (3.6-5.0) 12/26/20 05:26 Chloride 95.2 mmol/L (98-107) L 12/26/20 05:26 Carbon Dioxide 44 mmol/L (22-30) H* 12/26/20 05:26 Anion Gap 5 mmol/L 12/26/20 05:26 BUN 17 mg/dL (9-20) 12/26/20 05:26 Creatinine 0.2 mg/dL (0.8-1.3) L 12/26/20 05:26 Estimated GFR > 60 ml/min 12/26/20 05:26 BUN/Creatinine Ratio 85 % 12/26/20 05:26 Glucose 155 mg/dL (75-100) H 12/26/20 05:26 POC Glucose 127 mg/dL (70-105) H 12/26/20 11:21 Hemoglobin A1c 11.7 % (4-6) H 11/16/20 05:29 Lactic Acid 2.60 mmol/L (0.7-2.0) H* 11/16/20 05:29 Calcium 7.4 mg/dL (8.4-10.2) L 12/26/20 05:26 Phosphorus 2.60 mg/dL (2.5-4.5) 12/17/20 17:25 Magnesium 1.60 mg/dL (1.7-2.3) L 12/17/20 17:25 Ferritin 778.8 ng/mL (30.0-300.0) H 11/26/20 04:00 Total Bilirubin 0.30 mg/dL (0.1-1.2) 12/26/20 05:26 AST 25 units/L (5-40) 12/26/20 05:26 ALT 24 units/L (7-56) 12/26/20 05:26 Alkaline Phosphatase 95 units/L (35-129) 12/26/20 05:26 Lactate Dehydrogenase 288 units/L (91-180) H 11/26/20 04:00 Total Creatine Kinase 47 units/L (55-170) L 12/17/20 17:25 CK-MB (CK-2) 1.8 ng/mL (0.0-4.0) 12/17/20 17:25 CK-MB (CK-2) Rel Index 3.8 (0-4) 12/17/20 17:25 Troponin T < 0.010 ng/mL (0.00-0.029) 12/11/20 06:30 C-Reactive Protein 1.40 mg/dL (0.00-1.30) H 11/26/20 04:00 NT-Pro-B Natriuret Pep 107.2 pg/mL (0-900) 11/17/20 10:21 Total Protein 6.0 g/dL (6.3-8.2) L 12/26/20 05:26 Albumin 1.6 g/dL (3.9-5) L 12/26/20 05:26 Albumin/Globulin Ratio 0.4 % 12/26/20 05:26 Triglycerides 307 mg/dL (2-149) H 12/26/20 05:26 Procalcitonin 0.16 ng/mL (<0.15) 12/12/20 05:16 Arterial Blood Glucose 164 mg/dL (65-95) H 12/26/20 04:00 Arterial Blood Ionized Calcium 4.1 mg/dL (4.6-5.3) L 12/26/20 04:00 Urine Color Yellow (Yellow) 12/21/20 Unknown Urine Turbidity Cloudy (Clear) 12/21/20 Unknown Urine pH 6.0 (5.0-7.0) 12/21/20 Unknown Ur Specific [place] 1.013 (1.003-1.030) 12/21/20 Unknown Urine Protein <15 mg/dl mg/dL (Negative) 12/21/20 Unknown Urine Glucose (UA) Neg mg/dL (Negative) 12/21/20 Unknown Urine Ketones Neg mg/dL (Negative) 12/21/20 Unknown Urine Blood Neg (Negative) 12/21/20 Unknown Urine Nitrite Neg (Negative) 12/21/20 Unknown Urine Bilirubin Neg (Negative) 12/21/20 Unknown Urine Urobilinogen < 2.0 mg/dL (<2.0) 12/21/20 Unknown Ur Leukocyte Esterase Mod (Negative) 12/21/20 Unknown Urine WBC (Auto) 172.0 /HPF (0.0-6.0) H 12/21/20 Unknown Urine RBC (Auto) > 182.0 /HPF (0.0-6.0) 12/21/20 Unknown U Epithel Cells (Auto) 3.0 /HPF (0-13.0) 12/21/20 Unknown Urine Bacteria (Auto) 2+ /HPF (Negative) 12/21/20 Unknown Ur Renal Epithelial Cell <1 /LPF 12/21/20 Unknown Urine Mucus 2+ /HPF 12/21/20 Unknown Urine Yeast (Budding) 3+ /HPF 12/21/20 Unknown Vancomycin Trough 16.9 ug/mL (5.0-20.0) 12/19/20 15:46 Coronavirus (PCR) Positive (Negative) A 12/13/20 10:00 Hepatitis A IgM Ab Non-reactive (NonReactive) 12/17/20 21:40 Hep Bs Antigen Non-reactive (Negative) 12/17/20 21:40 Hep B Core IgM Ab Non-reactive (NonReactive) 12/17/20 21:40 Hepatitis C Antibody Non-reactive (NonReactive) 12/17/20 21:40 HIV 1&2 Antibody Rapid Non react (Non React) 12/17/20 21:40 HIV P24 Antigen Non react (Non React) 12/17/20 21:40 Microbiology: Microbiology 12/21/20 16:44 Peripheral/Venous Blood Culture - Preliminary NO GROWTH AFTER 4 DAYS 12/21/20 16:44 Peripheral/Venous Blood Culture - Preliminary NO GROWTH AFTER 4 DAYS - Diagnostic Impressions Diagnostic Impressions: Echocardiogram 11/16/20 10:34 Transthoracic Echocardiogram Indication: Shortness of breath-COVID BP: 108/77 HR: 92 Conclusions *Global left ventricular systolic function is normal. *The estimated ejection fraction is 60-65%. *Mild to moderate concentric left ventricular hypertrophy is observed. *There is trace of mitral regurgitation. *There is mild to moderate tricuspid regurgitation. *There is evidence of mild pulmonary hypertension. *The right ventricular systolic pressure is calculated at 31 mmHg. Findings Left Ventricle: The left ventricular chamber size is normal. Mild to moderate concentric left ventricular hypertrophy is observed. Global left ventricular systolic function is normal. The estimated ejection fraction is 60-65%. Left Atrium: The left atrial chamber size is normal. Right Ventricle: The right ventricular cavity size is normal. The right ventricular global systolic function is normal. Right Atrium: The right atrial cavity size is normal. Aortic Valve: The aortic valve is trileaflet. There is no evidence of aortic regurgitation. There is no evidence of aortic stenosis. Mitral Valve: The mitral valve leaflets appear normal. There is trace of mitral regurgitation. There is no evidence of mitral stenosis. Tricuspid Valve: The tricuspid valve leaflets are normal. There is mild to moderate tricuspid regurgitation. The right ventricular systolic pressure is calculated at 31 mmHg. There is evidence of mild pulmonary hypertension. Pulmonic Valve: There is trace pulmonic regurgitation. Pericardium: There is no pericardial effusion. Aorta: There is no dilatation of the ascending aorta. There is no dilatation of the aortic root. Venous: The inferior vena cava appears normal in size. Measurements Chambers 2D Name Value Normal Range IVSd (2D) 0.81 cm (0.6 - 1.1) LVPWd (2D) 0.79 cm (0.6 - 1.1) LVIDd (2D) 4.22 cm (3.7 - 5.6) LVIDs (2D) 3.1 cm (2 - 3.8) LV FS (2D) 26.71 % - EF Teichholz (2D) 52.55 % - Ao root diameter (2D) 3.34 cm (2 - 3.7) Volumes/Mass Name Value Normal Range LA ESV SP 4CH (A/L) 10.87 ml - LA ESV SP 2CH (A/L) 18.74 ml - LA ESV BP (A/L) 16.38 ml - LA ESV BP (A/L) index 8.62 ml/m2 - LA ESV SP 4CH (MOD) 10.32 ml - LA ESV SP 2CH (MOD) 17.66 ml - LA ESV BP (MOD) 15.12 ml - LA ESV BP (MOD) index 7.96 ml/m2 - Diastolic/Systolic Function Name Value Normal Range MV E-wave Vmax 0.76 m/sec - MV deceleration time 133.63 msec - MV A-wave Vmax 1.1 m/sec - MV E:A ratio 0.69 ratio - Aortic Valve Name Value Normal Range AV Vmax 1.44 m/sec - AV VTI 22.94 cm - AV peak gradient 8.33 mmHg - AV mean gradient 4.73 mmHg - LVOT diameter 2.2 cm - LVOT Vmax 1.04 m/sec - LVOT VTI 18.88 cm - LVOT peak gradient 4.34 mmHg - LVOT mean gradient 2.31 mmHg - SV LVOT 72.05 ml - EVANGELISTA (continuity Vmax) 2.75 cm2 - EVANGELISTA (continuity VTI) 3.14 cm2 - Tricuspid Valve Name Value Normal Range TR Vmax 2.64 m/sec - TR peak gradient 28 mmHg - RAP 3 mmHg - RVSP 31 mmHg - Gupta/IV: Voiding Method Indwelling Catheter IV Catheter Type [Left Peripheral IV Antecubital] Active Medications - Current Medications Current Medications: Generic Name Dose Route Start Last Admin Trade Name Freq PRN Reason Stop Dose Admin Acetaminophen 650 mg 11/15/20 23:55 12/25/20 07:24 Acetaminophen 325 Mg Tab PO 650 mg Q4H PRN Administration Pain MILD(1-3)/Fever >100.5/BUTTS Lipase/Protease/Amylase 1 each 11/23/20 11:53 12/05/20 23:45 Lipase 10,500/Protease 25,000/Amylase 43,750 (Units) Dr Cap FEEDTUBE 1 each PRN PRN Administration For Clogged Feeding Tube Dextrose 25 ml 12/10/20 05:21 12/10/20 05:24 Dextrose 50% In Water (25gm) 50 Ml Syringe IV 25 ml Q30MIN PRN Administration Hypoglycemia Protocol Docusate Sodium 100 mg 12/23/20 10:00 12/26/20 10:19 Docusate Sodium 100 Mg/10 Ml Oral Liqd PO 100 mg BID RAEANN Administration Enoxaparin Sodium 40 mg 12/03/20 22:00 12/25/20 22:09 Enoxaparin 40 Mg/0.4 Ml Inj SUB-Q 40 mg QDAY@2200 RAEANN Administration Famotidine 20 mg 12/16/20 10:00 12/26/20 10:19 Famotidine 20 Mg Tab PO 20 mg BID RAEANN Administration Hydrophilic Ointment 1 applic 11/21/20 21:53 11/30/20 21:33 Lip Therapy Vaseline TP 1 applic Q2HR PRN Administration Dry Lips Midazolam HCl 100 mg/ Sodium 100 mls @ 2 mls/hr 11/21/20 22:00 12/26/20 08:34 Chloride IV 5 mg/hr TITR RAEANN 5 mls/hr Administration Protocol 2 MG/HR Propofol 1,000 mg in 100 mls @ 2.175 mls/hr 11/27/20 12:00 12/26/20 02:45 Diprivan 10 Mg/Ml IV 15 mcg/kg/min TITR RAEANN 6.525 mls/hr Administration Protocol 5 MCG/KG/MIN Dexmedetomidine HCl 400 mcg/ 104 mls @ 4.441 mls/hr 12/10/20 13:00 12/26/20 08:39 Sodium Chloride IV 0.8 mcg/kg/hr TITRATE RAEANN 17.763 mls/hr Titration Protocol 0.2 MCG/KG/HR Fentanyl Citrate 2,000 mcg in 100 mls @ 3.9 mls/hr 12/18/20 19:00 12/26/20 04:08 Fentanyl Drip Premix IV 4 mcg/kg/hr TITR RAEANN 15.6 mls/hr Administration Protocol 1 MCG/KG/HR Vasopressin 20 unit/ Sodium 101 mls @ 9.09 mls/hr 12/24/20 18:30 Chloride IV TITR RAEANN Protocol 0.03 UNITS/MIN Piperacillin Sod/Tazobactam Sod 4.5 gm in 100 mls @ 200 mls/hr 12/25/20 12:00 12/26/20 12:58 Zosyn/Ns 4.5gm/100ml IV 200 mls/hr Q6H RAEANN Administration Protocol Norepinephrine 8 mg/ Sodium 250 mls @ 3.75 mls/hr 12/25/20 22:00 12/26/20 08:36 Chloride IV 14 mcg/min TITR RAEANN 26.25 mls/hr Titration Protocol 2 MCG/MIN Insulin Glargine 8 units 12/17/20 13:52 12/25/20 22:09 Insulin Glargine 100 Units/Ml SUB-Q 8 units QHS RAEANN Administration Insulin Human Lispro 0 unit 11/22/20 06:00 12/26/20 13:02 Insulin Lispro 100 Unit/Ml SUB-Q Not Given Q6HR [facility] Protocol Metoclopramide HCl 10 mg 11/15/20 23:55 Metoclopramide 10 Mg/2 Ml Inj IV Q6H PRN Nausea And Vomiting Multi-Ingred Cream/Lotion/Oil/Oint 1 applic 11/21/20 21:53 Mineral Oil/Petrolatum, White Ophth Oint 3.5 Gm OU Q4HR PRN Dry Eye(s) Ondansetron HCl 4 mg 11/15/20 23:55 Ondansetron 4 Mg/2 Ml Inj IV Q8H PRN Nausea And Vomiting Polyethylene Glycol 17 gm 12/23/20 10:00 12/26/20 10:19 Polyethylene Glycol 3350 17 Gm Powder PO 17 gm QDAY RAEANN Administration Senna/Docusate Sodium 2 tab 12/21/20 14:00 12/26/20 13:02 Sennosides/Docusate Sodium 8.6/50 Mg Tab PO 2 tab Q8HR RAEANN Administration Simple Syrup 15 ml 11/23/20 11:53 Simple Syrup 15 Ml FEEDTUBE PRN PRN Hypoglycemia Simple Syrup 30 ml 11/23/20 11:53 Simple Syrup 15 Ml FEEDTUBE PRN PRN Hypoglycemia Sodium Bicarbonate 325 mg 11/23/20 11:53 12/05/20 23:46 Sodium Bicarbonate 325 Mg Tab FEEDTUBE 325 mg PRN PRN Administration For Clogged Feeding Tube Sodium Chloride 10 ml 11/16/20 10:00 12/26/20 10:19 Sodium Chloride 0.9% 10 Ml Flush Syringe IV 10 ml BID RAEANN Administration Sodium Chloride 10 ml 11/15/20 23:55 12/03/20 00:21 Sodium Chloride 0.9% 10 Ml Flush Syringe IV 10 ml PRN PRN Administration LINE FLUSH Nutrition/Malnutrition Assess - Dietary Evaluation Nutrition/Malnutrition Findings: Nutrition Notes Start: 11/20/20 12:03 Freq: Status: Active Protocol: Document 12/25/20 11:32 AL (Rec: 12/25/20 11:37 AL [id number]) Co-Sign 12/25/20 11:32 CW Nutrition Notes Initial or Follow up Reassessment Current Diagnosis Diabetes,Sepsis,Respiratory Failure Other Pertinent Diagnosis Bilat pneu, COVID-19 (+) Current Diet Glucerna 1.2 at 60 ml/hr Labs/Tests Reviewed Pertinent Medications Levophed in NS Propofol at 8.7 ml/hr (229 kcal) Lasix Height 5 ft 6 in Weight 83.9 kg Usual Body Weight 80.5 kg Dewitt Body Weight (kg) 64.54 BMI 29.8 Weight change and time frame Wt change 2.8 kg (3%) noted. Pt has edema. Weight Status Overweight Subjective/Other Information F/U for TF tolerance and last BM. Per RN, pt had last BM yesterday 12/24. Pt tolerates TF at 60 ml/hr (goal rate). Percent of energy/protein needs met: 100%/100% Burn Absent Trauma Absent GI Symptoms None Difficulty In Swallowing,Chewing Current % PO Negligible Minimum of two criteria Yes Interpretation of Weight Loss (severe) >2% in 1 week Fluid Accumulation Moderate to Severe (severe) #3 Nutrition Diagnosis Inadequate oral intake Diagnosis Progress(for reassessment Continues documentation) #2 Nutrition Diagnosis Malnutrition As Evidenced by Signs and Symptoms Pt meeting 100%/100% of estimated energy/protein needs via TF for >7 days Diagnosis Progress(for reassessment Improved documentation) #1 Nutrition Diagnosis Unintended weight loss Diagnosis Progress(for reassessment Continues documentation) Is patient on ventilator? Yes Is Patient Ambulatory and/or Out of Bed No REE-(Caribou-St. Jeor-confined to bed) 1920.756 Kcal/Kg value to use for calculation 22 Approximate Energy Requirements Using 1846 kcal/Kg Calculation Used for Recommendations Chantal Hicks Additional Notes Protein: 87-145 g/day (1.2-2g/ kg) Fluid: 1ml/kcal or per MD Nutrition Intervention Change Diet Order: Continue TF Nutrition Support: Glucerna 1.2 at 65 ml/hr. Flush 125 ml q4h Kcal 1,872 Protein (gm) 93 Fluid (mL) 1,255 Goal #1 Meet at least 75% of energy and protein needs via TF Goal #2 TF tolerance Anticipated Discharge Needs: Unable to determine at this time Follow-Up By: 01/01/21 Additional Comments F/U for TF tolerance.
[2020-12-26] MEDS: ENOXAPARIN 40 MG/0.4 ML INJ SUB-Q SCH (21:23)
[2020-12-26] MEDS: INSULIN GLARGINE 100 UNITS/ML SUB-Q SCH (21:23)
[2020-12-27] MEDS: PIPERACIL/TAZOBACTA 4.5/NS 100 4.5 GM/100 ML VIAL IV SCH ×4 (01:14→17:56)
[2020-12-27] MEDS: NORepinephrine 8 MG in SODIUM CHLORIDE 0.9% 250ML 242 ML IV SCH ×3 (01:15→17:56)
[2020-12-27] MEDS: MIDAZOLAM 100 MG in SODIUM CHLORIDE 0.9% 80 ML IV SCH ×2 (01:40→22:48)
[2020-12-27] MEDS: INSULIN LISPRO 100 UNIT/ML SUB-Q SCH ×4 (06:17→17:49)
[2020-12-27] MEDS: SENNOSIDES/DOCUSATE SODIUM 8.6/50 MG TAB PO SCH ×3 (06:37→21:48)
[2020-12-27] MEDS: fentaNYL DRIP Premix 2,000 MCG/100 ML BAG IV SCH ×3 (07:52→20:24)
[2020-12-27] MEDS: FAMOTIDINE 20 MG TAB PO SCH ×2 (10:12→21:38)
[2020-12-27] MEDS: DOCUSATE SODIUM 100 MG/10 ML ORAL LIQD PO SCH ×2 (10:12→21:48)
[2020-12-27] MEDS: POLYETHYLENE GLYCOL 3350 17 GM POWDER PO SCH (10:12)
--- NOTE | 2020-12-27 10:56 | Progress Note ---
Assessment and Plan Cultures: SARS CoV-2 PCR: positive Blood culture: No growth 11/21/2020 tracheal aspirate culture: MRSA 12/09/2020 blood culture: no growth 12/09/2020 sputum culture: Klebsiella 12/17/2020 blood culture: 1 bottle with coag negative staph, second bottle with Enterococcus faecalis 12/17/2020 tracheal aspirate culture: Usual respiratory zachariah 12/21/2020 blood culture: No growth A/P: 59-year-old male with: #Shock: multifactorial. #GPC bacteremia: source unclear. Typically, Enterococcus is not considered a contaminant, however only present in 1 out of 4 bottles while another set is growing Coag negative Staph. #Bilateral pneumonia: secondary to COVID-19. Completed abx, remdesivir. #Klebsiella on ET aspirate culture: ?colonization v/s true disease, difficult to differentiate. Will treat given development of low-grade temperatures and white count. #B/L pneumothorax and pneumomediastinum: s/p chest tubes. #Acute hypoxic respiratory failure: Remains on the vent. Recs: -continue Zosyn, D3 given persistent shock -extremely poor prognosis, agree with DNR status, recent literature showing mortality of 100% in COVID-19 patients who required CPR Dayday Driscoll MD, FACP [facility] O: [phone] F: [phone] Subjective Date of service: 12/27/20 Principal diagnosis: COVID-19 Interval history: Remains critically ill. On the vent with full support, no fever. Persistent pressor requirement. Objective - Exam Narrative Exam: Physical Exam (reviewed in chart to minimize risk of transmission) Constitutional: deferred Head, Ears, Nose: deferred Eyes: deferred Neck: deferred Oral: deferred Cardiovascular: deferred Respiratory: deferred GI: deferred Musculoskeletal: deferred Skin: deferred Hem/Lymphatic: deferred Psych: deferred Neurological: deferred - Constitutional Vitals: Vital Signs Temp Pulse Resp BP Pulse Ox 97.6 F 79 30 H 100/53 93 12/27/20 08:00 12/27/20 09:15 12/27/20 09:15 12/27/20 09:15 12/27/20 09:15 Temperature -Last 24 Hours Temperature 97.6 F Temperature 97.8 F Temperature 97.2 F Temperature 97.7 F Temperature 98.7 F Temperature 99 F - Labs CBC & Chem 7: 12/26/20 05:26 12/26/20 05:26 Labs: Abnormal lab results 12/17/20 12/17/20 12/26/20 Range/Units 12:40 17:25 05:20 Seg Neuts % (Manual) (40.0-70.0) % Nucleated RBC % (0.0-0.9) % Seg Neutrophils # Man (1.8-7.7) K/mm3 Lymphocytes # (Manual) (1.2-5.4) K/mm3 POC ABG pCO2 (32.0-48.0) mmHg POC ABG pO2 (83-108) mmHg ABG Hemoglobin (12.0-17.5) ABG Oxyhemoglobin (94-98) ABG Sodium (136.0-145.0) mmol/L ABG Glucose (65-95) mg/dL Carboxyhemoglobin (0.5-1.5) Sodium 134 L (137-145) mmol/L Chloride 95.2 L 89.6 L (98-107) mmol/L Carbon Dioxide 41 H* 44 H* (22-30) mmol/L Creatinine 0.2 L 0.2 L (0.8-1.3) mg/dL Glucose 138 H 280 H (75-100) mg/dL POC Glucose 147 H (70-105) mg/dL Calcium 7.3 L 8.0 L (8.4-10.2) mg/dL Magnesium 1.60 L (1.7-2.3) mg/dL Total Protein 6.2 L (6.3-8.2) g/dL Albumin 2.1 L (3.9-5) g/dL Arterial Blood Glucose (65-95) mg/dL Arterial Blood Ionized Calcium (4.6-5.3) mg/dL 12/26/20 12/26/20 12/26/20 Range/Units 05:26 11:21 17:26 Seg Neuts % (Manual) 87.0 H (40.0-70.0) % Nucleated RBC % 5.0 H (0.0-0.9) % Seg Neutrophils # Man 14.1 H (1.8-7.7) K/mm3 Lymphocytes # (Manual) 0.0 L (1.2-5.4) K/mm3 POC ABG pCO2 (32.0-48.0) mmHg POC ABG pO2 (83-108) mmHg ABG Hemoglobin (12.0-17.5) ABG Oxyhemoglobin (94-98) ABG Sodium (136.0-145.0) mmol/L ABG Glucose (65-95) mg/dL Carboxyhemoglobin (0.5-1.5) Sodium (137-145) mmol/L Chloride (98-107) mmol/L Carbon Dioxide (22-30) mmol/L Creatinine (0.8-1.3) mg/dL Glucose (75-100) mg/dL POC Glucose 127 H 134 H (70-105) mg/dL Calcium (8.4-10.2) mg/dL Magnesium (1.7-2.3) mg/dL Total Protein (6.3-8.2) g/dL Albumin (3.9-5) g/dL Arterial Blood Glucose (65-95) mg/dL Arterial Blood Ionized Calcium (4.6-5.3) mg/dL 12/26/20 12/27/20 12/27/20 Range/Units 23:22 03:19 05:17 Seg Neuts % (Manual) (40.0-70.0) % Nucleated RBC % (0.0-0.9) % Seg Neutrophils # Man (1.8-7.7) K/mm3 Lymphocytes # (Manual) (1.2-5.4) K/mm3 POC ABG pCO2 75.0 H (32.0-48.0) mmHg POC ABG pO2 74.3 L (83-108) mmHg ABG Hemoglobin 7.3 L (12.0-17.5) ABG Oxyhemoglobin 92.8 L (94-98) ABG Sodium 135.6 L (136.0-145.0) mmol/L ABG Glucose 151 H (65-95) mg/dL Carboxyhemoglobin 2.0 H (0.5-1.5) Sodium (137-145) mmol/L Chloride (98-107) mmol/L Carbon Dioxide (22-30) mmol/L Creatinine (0.8-1.3) mg/dL Glucose (75-100) mg/dL POC Glucose 125 H 121 H (70-105) mg/dL Calcium (8.4-10.2) mg/dL Magnesium (1.7-2.3) mg/dL Total Protein (6.3-8.2) g/dL Albumin (3.9-5) g/dL Arterial Blood Glucose 151 H (65-95) mg/dL Arterial Blood Ionized Calcium 4.2 L (4.6-5.3) mg/dL
--- NOTE | 2020-12-27 12:10 | Progress Note ---
Assessment and Plan Assessment and plan: Plan -Continue antibiotic therapy-Zosyn -Remains on pressors -Chest tube management as per surgery -Maintained on mechanical ventilation -Continue to monitor glucose levels -Continue supportive care -ID and critical care following -Prognosis is very poor DVT/GI prophylaxis: SCDs to bilateral lower extremities while in bed, Lovenox subcu, PPI Critical care statement The high probability of a clinically significant, sudden or life threatening deterioration of the [multi] system(s) required my full and direct attention, intervention and personal management. The aggregate critical care time was [60] minutes. This time is in addition to time spent performing reported procedures but includes the following: [x] Data Review and interpretation [x] Patient assessment and monitoring of vital signs [x] Documentation [x] Medication orders and management History Interval history: 59-year-old female who is smoker who presented to [facility] with shortness of breath cough fever weakness for 1 to 2 days prior to arrival. Per EMS the patient was severely hypoxic with saturations in the low 80s. With all oxygen and nonrebreather came down to low 90s. ID, pulmonary, CCM were consulted. Septic Shock Coag Negative staph/Entrococcus bactermia MRSA/Klebsiella in sputum COVID-19 pneumonia Acute hypoxic hypercapnic respiratory failure Bilateral pneumothorax Pneumomediastinum with subcutaneous emphysema Elevated D-dimer Transaminitis secondary to Covid 19 Klebsiella pneumonia Type 2 diabetes mellitus Severe protien calorie malnutrition secondary to critical illness Hyponatremia Hypochloremia Metabolic alkalosis Hypercapnia Hypoxemia 2/1: Patient continues on BiPAP throughout the night. Labs are remarkable for hypoxia with improving renal function but lactic acidosis without fever. CTA has been ordered to rule out pulmonary embolism. I agree with increasing enoxaparin to twice daily full dose for empiric treatment of pulmonary embolism. Will obtain ID consultation on further evaluation for possible underlying pneumonia versus COVID-19. We will also obtain echocardiogram for evaluation. Will discontinue fluids at this time. 2/2; Continue supportive care, Patient remains with very guarded prognosis, remains on BiPAP, continues on Remdesivir, and steroids. Will continue anticoagulation, unable to get CTA Chest due to patients unstable clinical status. Will adjust insulin for better blood glucose 2/3: Continues on BIPAP, no clear improvement at this time. Will continue steroids therapy Remdesivir and also Full anticoagulation at this time. Will update family. Discussed with Sanding Line Operator. 2/4: Taking a break from the BiPAP on high flow and nonrebreather 100% with saturation of 90% becomes hypoxic with any movement. Sanding Line Operator input noted will get a dose of Lasix today. Will await a discussion with ID for possibly increasing steroid. I updated Patient's Cousin, Tayla Esquivel who is the emergency personal banking assistant. Blood sugar remains fluctuating secondary to steriods, Encouraged Prone positioning. Noted with mild hyponatremia we will continue to monitor and manage 11/20: Continue supportive care wean oxygen as tolerated prognosis remains guar ded. Encouraged to progress as tolerated. Awaiting labs today. Discussed with nursing staff and patient at bedside. 11/21: Discontinued Dexamethasone as Solumedrol started secondary to increased oxy gen demand. Will give additional insulin for better control. Continue oxygen support patient still on high flow. Prognosis still guarded 11/22: Patient was intubated and placed on mechanical ventilation. Continue current medication. Will check a.m. labs today. Noted still with hypotension. Doubt septic shock at this time as patient has no new fever. Will adjust insulin for better blood sugar control. 11/23: Patient admitted with COVID-19 despite all efforts patient remains severely hypoxic and now is intubated. Sanding Line Operator input noted. Blood pressure marginal at this time. Very poor prognosis. Continue Solu-Medrol. 11/24. Patient remains very hypoxic. Blood pressure borderline. Plan for initiation of paralytic agents as per portable trackman. Patient may need to be transferred if no improvement. 11/26. Off paralytics. Remains intubated. On steroids. Prognosis is poor. 11/27. Chest xray shows pneumomediastinum and subcutaneous emphysema. Surgery consulted. Plan for chest tube placement. Sputum culture grew MRSA. Patient started on vancomycin per ID. 11/28. Right chest tube placed yesterday by surgery. Repeat chest x-ray showed left small pneumothorax. Plan for chest tube placement on the left today. Remains on paralytic agents. 11/29. Remains intubated on vent. Had left chest tube placed yesterday. Vitals reviewed. Critical care following 11/30/ Remains on mechanical ventilation. Worsening hypoxia. Bilateral chest tubes in place. Vitals reviewed. Labs reviewed 12/01: Chest tube and mechanical ventilation remains in place, poor prognosis, FIO2 remains at 90%, adjust insulin for better blood glucose control 12/02: Patient remains on full ventilatory support and steroids, still with worsening leukocytosis ?inflammatory or infectious vs steroids. Continue va ncomycin. 12/03; slowly weaning, 12/04: Still on the vent FiO2 down to 65% PEEP remains at 18. Still with poor prognosis. 12/05: Patient continues on full ventilatory support per portable trackman PEEP remains at 18. Still with hypercapnic respiratory failure. FiO2 down to 60% this morning. Chest tube to suction still weaning off steroids in the deliberation ongoing for possible a third chest tube as last documentation by surgery shows no plan for it at this time. Continue to manage insulin for better blood sugar control. 12/06:weaned down to 60%, continue supportive care, unable to wean, 12/07; patient remains intubated on ventilatory support, chest tubes in place trach and PEG when patient's Covid test is negative,Per surgery. 12/08; Patient remains intubated remains with hypercapnia and hypoxia. Chest tube still remain in place. He is off antibiotics at this time. Continue st eroids which is likely resultant to the leukocytosis. Sanding Line Operator and surgeon following ID input is noted. Prognosis remains guarded to poor 12/10; patient remains intubated on vent, unable to wean awaiting trach and PEG when Covid test is negative, Continue current management 12/11; patient awaiting trach and PEG when Covid test is negative, vent dependent, poor prognosis 12/12; clinically no change, vent dependent, Patient is critically ill with very poor prognosis, awaiting trach and PEG when COVID-19 test turns negative. Plan discussed with nursing staff. Caregivers have discussed with patient's family periodically 12/13: Patient is critically ill with very poor prognosis, awaiting trach and PEG when COVID-19 test turns negative. Plan discussed with nursing staff. Caregivers have discussed with patient's family periodically 12/14: Increase UOP which we will monitor and replete as needed. Patient remain hypoxemic on ABG despite 100 FiO2, remains on fentanyl, precedex, versed and levo gtt. 12/15: Patient remains sedated on fentanyl at 3 mcg, Versed at 30 mg, dexamethasone 0.3 and was on Levophed 6 mcg this morning. Patient's vent settings rate of 30, tidal volume 425, PEEP of 18, FiO2 of 85. RT attempted to wean as tolerated. No acute events reported overnight. Bilateral chest tubes to wall suction. 12/16: Overnight the patient was noted to be bradycardic, Precedex drip was increased to 0.6/fentanyl to 4 mcg/Versed 5 mg, bilateral chest tube to suction. Current vent settings for 425/30/18/0.75, RT to wean as tolerated 12/17: Patient's T-max overnight was 101.2, obtain CXR today, blood culture x2 per ID. Patient remains on fentanyl, Versed, Precedex and Levophed. Current vent settings AC 425/30/18/0.75, RT to wean as tolerated. Continue steroid taper. 12/18: Patient remains sedated on fentanyl, Versed, Precedex and has vasopressor support of Levophed, current vent settings 425/30/18/0.75 with bilateral chest tubes to wall suction. Patient's blood culture from 12/17 grew gram-positive cocci in pairs and chains however the patient is on vancomycin and cefepime. We will continue to follow for speciation and sensitivity. 12/19: Unfortunately remains on full ventilatory support prognosis remains very poor. No new fever however since 12/17. Continue to follow cultures not finalized yet. Antibiotics per ID critical care management input noted. Patient remains on high FiO2 and PEEP at this time. 12/20: Still with intermittent fever, likely secondary to covid 19, still with hyponatremia, continue with tube feed. cultures with coagulas negative staph, a wait further ID input. Continues on abx. 12/21: Patient remains on fentanyl, Precedex, Versed and Levophed and assist control for 25/30/18/.100 with bilateral chest tubes in place. Patient remains on antibiotic therapy. No acute events reported overnight. 12/22: Patient remains sedated on Precedex and fentanyl and on vasopressor support, blood cultures grew coag negative Staphylococcus and Enterococcus and antibiotic therapy was deescalated to ampicillin by infectious disease. This morning patient was on assist control for 25/30/18/0.100 and respiratory therapy to decrease FiO2 as tolerated. 12/23: Patient remains sedated on Versed, fentanyl, propofol, dexamethasone and vasopressor support with Levophed. Patient is on ampicillin with a T-max of 99 and current vent settings assist-control 425/30/18/0.90 which is being weaned as tolerated by RT. Patient bowel regimen escalated. 12/24: Patient was febrile overnight to 102, remains sedated on Versed, fentanyl, propofol and Precedex and on respiratory support with Levophed. This morning at the time my examination patient was on assist control 425/30/18/0.100. Patient's bowel regimen was escalated. This afternoon patient SPO2 dropped into the upper 60s and low 70s, patient was removed off the ventilator and bagged by RT with improvement in his SPO2 to mid 70s and his ventilator settings were adjusted with an increase in PEEP to 22 and reduction in tidal volume. Patient remained with SPO2 in the 70s to 80s then suddenly dropped his SPO2 again. A CXR was obtained and patient received 40 mg of IV Lasix. CXR showed pneumoth orax and general surgery was consulted for chest tube placement. Patient's existing right chest tube was replaced after removal. During chest tube was placed on the right side and a repeat CXR is being performed. Dr. German and Dr. Henry were kept up to date throughout the process and Dr. Henry was at beside during this time. I attempted to call Kehinde but was unable to contact him but left a voicemail. dJ was called and informed of changes with translation provided by Tayla. I spoke to them on the phone for over 30 minutes and explained the situation. They did not wish to change his CODE STATUS. Per CCM the patient respikes his temperature over the next 24 hours we will reculture his urine and blood. Patient remains on antibiotic therapy for 14 days per infectious disease 01/04/2021. Repeat blood cultures are negative. 12/25: Patient developed subcu emphysema on right chest and a repeat CXR shows minimal pneumothorax on the right chest wall which has not increased in size. At the time of my examination patient was on assist control 400/30/18/0.100 and the subcutaneous emphysema was noted after the patient's PEEP was increased. Patient remains sedated on Versed, fentanyl, Precedex and propofol with vasopressor support of Levophed. Patient's family decided to make the patient an AND and his CODE STATUS was updated. We will continue supportive care. Infectious disease has escalated antibiotic therapy to Zosyn. 12/26. Remains mechanically ventilated. On AC 30/400/100% PEEP 22. Not responsive. Sedated. On pressors. Labs reviewed. On antibiotics. 12/27. No change in medical condition. Remains on AC 100% PEEP of 22. Sedated and on pressors. On antibiotics-Zosyn. ID and critical care on board. General surgery also following for management of chest tubes. Prognosis is very poor Hospitalist Physical - Physical exam Narrative exam: VITAL SIGNS: Reviewed. GENERAL: Intubated HEAD: No signs of head trauma. EYES: Pupils are equal. NECK: No adenopathy, no JVD. CHEST: Diminished breath sound bilaterally. Subcutaneous emphysema. R & L chest tubes in place CARDIAC: normal S1 and S2, without murmurs, gallops, or rubs. ABDOMEN: Soft, non tender and non distended. No rebound or guarding, and no masses palpated. Bowel Sounds normal. MUSCULOSKELETAL: Edema NEUROLOGIC EXAM: Not responsive SKIN: No obvious lesions - Constitutional Vitals: Temp Pulse Resp BP Pulse Ox 97.6 F 77 30 H 102/56 95 12/27/20 08:00 12/27/20 11:49 12/27/20 09:15 12/27/20 11:49 12/27/20 11:49 HEART Score - HEART Score Troponin: Troponin T < 0.010 ng/mL (0.00-0.029) 12/11/20 06:30 Results - Labs CBC & Chem 7: 12/26/20 05:26 12/26/20 05:26 Labs: Laboratory Last Values WBC 16.2 K/mm3 (4.5-11.0) H 12/26/20 05:26 RBC 2.75 M/mm3 (3.65-5.03) L 12/26/20 05:26 Hgb 7.8 gm/dl (11.8-15.2) L 12/26/20 05:26 Hct 24.1 % (35.5-45.6) L 12/26/20 05:26 MCV 88 fl (84-94) 12/26/20 05:26 MCH 28 pg (28-32) 12/26/20 05:26 MCHC 32 % (32-34) 12/26/20 05:26 RDW 16.3 % (13.2-15.2) H 12/26/20 05:26 Plt Count 451 K/mm3 (140-440) H 12/26/20 05:26 Lymph % (Auto) 2.0 % (13.4-35.0) L 11/27/20 06:25 [place] % (Auto) 5.2 % (0.0-7.3) 11/27/20 06:25 Eos % (Auto) 0.0 % (0.0-4.3) 11/27/20 06:25 Baso % (Auto) 0.1 % (0.0-1.8) 11/27/20 06:25 Lymph # (Auto) 0.3 K/mm3 (1.2-5.4) L 11/27/20 06:25 [place] # (Auto) 0.7 K/mm3 (0.0-0.8) 11/27/20 06:25 Eos # (Auto) 0.0 K/mm3 (0.0-0.4) 11/27/20 06:25 Baso # (Auto) 0.0 K/mm3 (0.0-0.1) 11/27/20 06:25 Add Manual Diff Complete 12/26/20 05:26 Total Counted 100 12/26/20 05:26 Seg Neutrophils % Ice Sculptor 12/24/20 18:57 Seg Neuts % (Manual) 87.0 % (40.0-70.0) H 12/26/20 05:26 Band Neutrophils % 6.0 % 12/26/20 05:26 Lymphocytes % (Manual) 5.0 % (13.4-35.0) L 12/24/20 18:57 Monocytes % (Manual) 3.0 % (0.0-7.3) 12/26/20 05:26 Metamyelocytes % 4.0 % 12/26/20 05:26 Nucleated RBC % 5.0 % (0.0-0.9) H 12/26/20 05:26 Seg Neutrophils # 12.7 K/mm3 (1.8-7.7) H 11/27/20 06:25 Seg Neutrophils # Man 14.1 K/mm3 (1.8-7.7) H 12/26/20 05:26 Band Neutrophils # 1.0 K/mm3 12/26/20 05:26 Lymphocytes # (Manual) 0.0 K/mm3 (1.2-5.4) L 12/26/20 05:26 Abs React Lymphs (Man) 0.0 K/mm3 12/26/20 05:26 Monocytes # (Manual) 0.5 K/mm3 (0.0-0.8) 12/26/20 05:26 Eosinophils # (Manual) 0.0 K/mm3 (0.0-0.4) 12/26/20 05:26 Basophils # (Manual) 0.0 K/mm3 (0.0-0.1) 12/26/20 05:26 Metamyelocytes # 0.6 K/mm3 12/26/20 05:26 Myelocytes # 0.0 K/mm3 12/26/20 05:26 Promyelocytes # 0.0 K/mm3 12/26/20 05:26 Blast Cells # 0.0 K/mm3 12/26/20 05:26 WBC Morphology Not Reportable 12/26/20 05:26 Hypersegmented Neuts Not Reportable 12/26/20 05:26 Hyposegmented Neuts Not Reportable 12/26/20 05:26 Hypogranular Neuts Not Reportable 12/26/20 05:26 Smudge Cells Not Reportable 12/26/20 05:26 Toxic Granulation Not Reportable 12/26/20 05:26 Toxic Vacuolation Not Reportable 12/26/20 05:26 Dohle Bodies Not Reportable 12/26/20 05:26 Pelger-Huet Anomaly Not Reportable 12/26/20 05:26 Tony Rods Not Reportable 12/26/20 05:26 Platelet Estimate Consistent w auto 12/26/20 05:26 Clumped Platelets Not Reportable 12/26/20 05:26 Plt Clumps, EDTA Not Reportable 12/26/20 05:26 Large Platelets Few 12/26/20 05:26 Giant Platelets Not Reportable 12/26/20 05:26 Platelet Satelliting Not Reportable 12/26/20 05:26 Plt Morphology Comment Not Reportable 12/26/20 05:26 RBC Morphology Not Reportable 12/26/20 05:26 Dimorphic RBCs Not Reportable 12/26/20 05:26 Polychromasia Few 12/26/20 05:26 Hypochromasia Not Reportable 12/26/20 05:26 Poikilocytosis Not Reportable 12/26/20 05:26 Anisocytosis Not Reportable 12/26/20 05:26 Microcytosis Not Reportable 12/26/20 05:26 Macrocytosis Not Reportable 12/26/20 05:26 Spherocytes Not Reportable 12/26/20 05:26 Pappenheimer Bodies Not Reportable 12/26/20 05:26 Sickle Cells Not Reportable 12/26/20 05:26 Target Cells Not Reportable 12/26/20 05:26 Tear Drop Cells Not Reportable 12/26/20 05:26 Ovalocytes Not Reportable 12/26/20 05:26 Stomatocytes Few 12/26/20 05:26 Helmet Cells Not Reportable 12/26/20 05:26 Cabrera-[place] Bodies Not Reportable 12/26/20 05:26 Hoyt Rings Not Reportable 12/26/20 05:26 Henrry Cells Not Reportable 12/26/20 05:26 Bite Cells Not Reportable 12/26/20 05:26 Crenated Cell Not Reportable 12/26/20 05:26 Elliptocytes Not Reportable 12/26/20 05:26 Acanthocytes (Spur) Not Reportable 12/26/20 05:26 Rouleaux Not Reportable 12/26/20 05:26 Hemoglobin C Crystals Not Reportable 12/26/20 05:26 Schistocytes Not Reportable 12/26/20 05:26 Malaria parasites Not Reportable 12/26/20 05:26 Yovani Bodies Not Reportable 12/26/20 05:26 Hem Pathologist Commnt No 12/26/20 05:26 D-Dimer 926.11 ng/mlDDU (0-234) H 11/26/20 06:04 ABG pH 7.337 (7.320-7.450) 12/27/20 03:19 POC ABG pCO2 75.0 mmHg (32.0-48.0) H 12/27/20 03:19 ABG pCO2 81.3 mm Hg 12/08/20 04:12 POC ABG pO2 74.3 mmHg (83-108) L 12/27/20 03:19 ABG pO2 69.7 mm Hg (80.0-90.0) L 12/08/20 04:12 POC ABG HCO3 39.3 12/27/20 03:19 ABG HCO3 50.1 mmol/L (20.0-26.0) H 12/08/20 04:12 ABG O2 Saturation 94.7 (0-100) 12/27/20 03:19 ABG O2 Content 13.0 (0.0-44) 12/07/20 05:20 POC ABG Base Excess 12.0 12/27/20 03:19 ABG Base Excess 21.6 mmol/L (-2.0-3.0) H 12/08/20 04:12 ABG Hemoglobin 7.3 (12.0-17.5) L 12/27/20 03:19 ABG Oxyhemoglobin 92.8 (94-98) L 12/27/20 03:19 ABG Carboxyhemoglobin 2.0 % (0.0-5.0) 12/08/20 04:12 ABG Methemoglobin 0 (0.0-1.5) 12/27/20 03:19 ABG Sodium 135.6 mmol/L (136.0-145.0) L 12/27/20 03:19 ABG Potassium 3.5 mmol/L (3.40-4.50) 12/27/20 03:19 ABG Chloride 98.0 mmol/L (98-107) 12/27/20 03:19 ABG Glucose 151 mg/dL (65-95) H 12/27/20 03:19 Oxyhemoglobin 93.2 % (95.0-99.0) L 12/08/20 04:12 Carboxyhemoglobin 2.0 (0.5-1.5) H 12/27/20 03:19 FiO2 90 12/23/20 05:19 FiO2 % 100 12/27/20 03:19 Sodium 140 mmol/L (137-145) 12/26/20 05:26 Potassium 3.8 mmol/L (3.6-5.0) 12/26/20 05:26 Chloride 95.2 mmol/L (98-107) L 12/26/20 05:26 Carbon Dioxide 44 mmol/L (22-30) H* 12/26/20 05:26 Anion Gap 5 mmol/L 12/26/20 05:26 BUN 17 mg/dL (9-20) 12/26/20 05:26 Creatinine 0.2 mg/dL (0.8-1.3) L 12/26/20 05:26 Estimated GFR > 60 ml/min 12/26/20 05:26 BUN/Creatinine Ratio 85 % 12/26/20 05:26 Glucose 155 mg/dL (75-100) H 12/26/20 05:26 POC Glucose 126 mg/dL (70-105) H 12/27/20 12:02 Hemoglobin A1c 11.7 % (4-6) H 11/16/20 05:29 Lactic Acid 2.60 mmol/L (0.7-2.0) H* 11/16/20 05:29 Calcium 7.4 mg/dL (8.4-10.2) L 12/26/20 05:26 Phosphorus 2.60 mg/dL (2.5-4.5) 12/17/20 17:25 Magnesium 1.60 mg/dL (1.7-2.3) L 12/17/20 17:25 Ferritin 778.8 ng/mL (30.0-300.0) H 11/26/20 04:00 Total Bilirubin 0.30 mg/dL (0.1-1.2) 12/26/20 05:26 AST 25 units/L (5-40) 12/26/20 05:26 ALT 24 units/L (7-56) 12/26/20 05:26 Alkaline Phosphatase 95 units/L (35-129) 12/26/20 05:26 Lactate Dehydrogenase 288 units/L (91-180) H 11/26/20 04:00 Total Creatine Kinase 47 units/L (55-170) L 12/17/20 17:25 CK-MB (CK-2) 1.8 ng/mL (0.0-4.0) 12/17/20 17:25 CK-MB (CK-2) Rel Index 3.8 (0-4) 12/17/20 17:25 Troponin T < 0.010 ng/mL (0.00-0.029) 12/11/20 06:30 C-Reactive Protein 1.40 mg/dL (0.00-1.30) H 11/26/20 04:00 NT-Pro-B Natriuret Pep 107.2 pg/mL (0-900) 11/17/20 10:21 Total Protein 6.0 g/dL (6.3-8.2) L 12/26/20 05:26 Albumin 1.6 g/dL (3.9-5) L 12/26/20 05:26 Albumin/Globulin Ratio 0.4 % 12/26/20 05:26 Triglycerides 307 mg/dL (2-149) H 12/26/20 05:26 Procalcitonin 0.16 ng/mL (<0.15) 12/12/20 05:16 Arterial Blood Glucose 151 mg/dL (65-95) H 12/27/20 03:19 Arterial Blood Ionized Calcium 4.2 mg/dL (4.6-5.3) L 12/27/20 03:19 Urine Color Yellow (Yellow) 12/21/20 Unknown Urine Turbidity Cloudy (Clear) 12/21/20 Unknown Urine pH 6.0 (5.0-7.0) 12/21/20 Unknown Ur Specific Kodak 1.013 (1.003-1.030) 12/21/20 Unknown Urine Protein <15 mg/dl mg/dL (Negative) 12/21/20 Unknown Urine Glucose (UA) Neg mg/dL (Negative) 12/21/20 Unknown Urine Ketones Neg mg/dL (Negative) 12/21/20 Unknown Urine Blood Neg (Negative) 12/21/20 Unknown Urine Nitrite Neg (Negative) 12/21/20 Unknown Urine Bilirubin Neg (Negative) 12/21/20 Unknown Urine Urobilinogen < 2.0 mg/dL (<2.0) 12/21/20 Unknown Ur Leukocyte Esterase Mod (Negative) 12/21/20 Unknown Urine WBC (Auto) 172.0 /HPF (0.0-6.0) H 12/21/20 Unknown Urine RBC (Auto) > 182.0 /HPF (0.0-6.0) 12/21/20 Unknown U Epithel Cells (Auto) 3.0 /HPF (0-13.0) 12/21/20 Unknown Urine Bacteria (Auto) 2+ /HPF (Negative) 12/21/20 Unknown Ur Renal Epithelial Cell <1 /LPF 12/21/20 Unknown Urine Mucus 2+ /HPF 12/21/20 Unknown Urine Yeast (Budding) 3+ /HPF 12/21/20 Unknown Vancomycin Trough 16.9 ug/mL (5.0-20.0) 12/19/20 15:46 Coronavirus (PCR) Positive (Negative) A 12/13/20 10:00 Hepatitis A IgM Ab Non-reactive (NonReactive) 12/17/20 21:40 Hep Bs Antigen Non-reactive (Negative) 12/17/20 21:40 Hep B Core IgM Ab Non-reactive (NonReactive) 12/17/20 21:40 Hepatitis C Antibody Non-reactive (NonReactive) 12/17/20 21:40 HIV 1&2 Antibody Rapid Non react (Non React) 12/17/20 21:40 HIV P24 Antigen Non react (Non React) 12/17/20 21:40 Microbiology: Microbiology 12/21/20 16:44 Peripheral/Venous Blood Culture - Final NO GROWTH AFTER 5 DAYS 12/21/20 16:44 Peripheral/Venous Blood Culture - Final NO GROWTH AFTER 5 DAYS - Diagnostic Impressions Diagnostic Impressions: Echocardiogram 11/16/20 10:34 Transthoracic Echocardiogram Indication: Shortness of breath-COVID BP: 108/77 HR: 92 Conclusions *Global left ventricular systolic function is normal. *The estimated ejection fraction is 60-65%. *Mild to moderate concentric left ventricular hypertrophy is observed. *There is trace of mitral regurgitation. *There is mild to moderate tricuspid regurgitation. *There is evidence of mild pulmonary hypertension. *The right ventricular systolic pressure is calculated at 31 mmHg. Findings Left Ventricle: The left ventricular chamber size is normal. Mild to moderate concentric left ventricular hypertrophy is observed. Global left ventricular systolic function is normal. The estimated ejection fraction is 60-65%. Left Atrium: The left atrial chamber size is normal. Right Ventricle: The right ventricular cavity size is normal. The right ventricular global systolic function is normal. Right Atrium: The right atrial cavity size is normal. Aortic Valve: The aortic valve is trileaflet. There is no evidence of aortic regurgitation. There is no evidence of aortic stenosis. Mitral Valve: The mitral valve leaflets appear normal. There is trace of mitral regurgitation. There is no evidence of mitral stenosis. Tricuspid Valve: The tricuspid valve leaflets are normal. There is mild to moderate tricuspid regurgitation. The right ventricular systolic pressure is calculated at 31 mmHg. There is evidence of mild pulmonary hypertension. Pulmonic Valve: There is trace pulmonic regurgitation. Pericardium: There is no pericardial effusion. Aorta: There is no dilatation of the ascending aorta. There is no dilatation of the aortic root. Venous: The inferior vena cava appears normal in size. Measurements Chambers 2D Name Value Normal Range IVSd (2D) 0.81 cm (0.6 - 1.1) LVPWd (2D) 0.79 cm (0.6 - 1.1) LVIDd (2D) 4.22 cm (3.7 - 5.6) LVIDs (2D) 3.1 cm (2 - 3.8) LV FS (2D) 26.71 % - EF Teichholz (2D) 52.55 % - Ao root diameter (2D) 3.34 cm (2 - 3.7) Volumes/Mass Name Value Normal Range LA ESV SP 4CH (A/L) 10.87 ml - LA ESV SP 2CH (A/L) 18.74 ml - LA ESV BP (A/L) 16.38 ml - LA ESV BP (A/L) index 8.62 ml/m2 - LA ESV SP 4CH (MOD) 10.32 ml - LA ESV SP 2CH (MOD) 17.66 ml - LA ESV BP (MOD) 15.12 ml - LA ESV BP (MOD) index 7.96 ml/m2 - Diastolic/Systolic Function Name Value Normal Range MV E-wave Vmax 0.76 m/sec - MV deceleration time 133.63 msec - MV A-wave Vmax 1.1 m/sec - MV E:A ratio 0.69 ratio - Aortic Valve Name Value Normal Range AV Vmax 1.44 m/sec - AV VTI 22.94 cm - AV peak gradient 8.33 mmHg - AV mean gradient 4.73 mmHg - LVOT diameter 2.2 cm - LVOT Vmax 1.04 m/sec - LVOT VTI 18.88 cm - LVOT peak gradient 4.34 mmHg - LVOT mean gradient 2.31 mmHg - SV LVOT 72.05 ml - EVANGELISTA (continuity Vmax) 2.75 cm2 - EVANGELISTA (continuity VTI) 3.14 cm2 - Tricuspid Valve Name Value Normal Range TR Vmax 2.64 m/sec - TR peak gradient 28 mmHg - RAP 3 mmHg - RVSP 31 mmHg - Gupta/IV: Voiding Method Indwelling Catheter IV Catheter Type [Left Peripheral IV Antecubital] Active Medications - Current Medications Current Medications: Generic Name Dose Route Start Last Admin Trade Name Freq PRN Reason Stop Dose Admin Acetaminophen 650 mg 11/15/20 23:55 12/25/20 07:24 Acetaminophen 325 Mg Tab PO 650 mg Q4H PRN Administration Pain MILD(1-3)/Fever >100.5/BUTTS Lipase/Protease/Amylase 1 each 11/23/20 11:53 12/05/20 23:45 Lipase 10,500/Protease 25,000/Amylase 43,750 (Units) Dr Slater FEEDTUBE 1 each PRN PRN Administration For Clogged Feeding Tube Dextrose 25 ml 12/10/20 05:21 12/10/20 05:24 Dextrose 50% In Water (25gm) 50 Ml Syringe IV 25 ml Q30MIN PRN Administration Hypoglycemia Protocol Docusate Sodium 100 mg 12/23/20 10:00 12/27/20 10:12 Docusate Sodium 100 Mg/10 Ml Oral Liqd PO 100 mg BID RAEANN Administration Enoxaparin Sodium 40 mg 12/03/20 22:00 12/26/20 21:23 Enoxaparin 40 Mg/0.4 Ml Inj SUB-Q 40 mg QDAY@2200 RAEANN Administration Famotidine 20 mg 12/16/20 10:00 12/27/20 10:12 Famotidine 20 Mg Tab PO 20 mg BID RAEANN Administration Hydrophilic Ointment 1 applic 11/21/20 21:53 11/30/20 21:33 Lip Therapy Vaseline TP 1 applic Q2HR PRN Administration Dry Lips Midazolam HCl 100 mg/ Sodium 100 mls @ 2 mls/hr 11/21/20 22:00 12/27/20 01:40 Chloride IV 5 mg/hr TITR RAEANN 5 mls/hr Administration Protocol 2 MG/HR Propofol 1,000 mg in 100 mls @ 2.175 mls/hr 11/27/20 12:00 12/27/20 03:51 Diprivan 10 Mg/Ml IV 15 mcg/kg/min TITR RAEANN 6.525 mls/hr Administration Protocol 5 MCG/KG/MIN Dexmedetomidine HCl 400 mcg/ 104 mls @ 4.441 mls/hr 12/10/20 13:00 12/26/20 23:04 Sodium Chloride IV 0.7 mcg/kg/hr TITRATE RAEANN 15.543 mls/hr Titration Protocol 0.2 MCG/KG/HR Fentanyl Citrate 2,000 mcg in 100 mls @ 3.9 mls/hr 12/18/20 19:00 12/27/20 07:52 Fentanyl Drip Premix IV 4 mcg/kg/hr TITR RAEANN 15.6 mls/hr Administration Protocol 1 MCG/KG/HR Vasopressin 20 unit/ Sodium 101 mls @ 9.09 mls/hr 12/24/20 18:30 Chloride IV TITR RAEANN Protocol 0.03 UNITS/MIN Piperacillin Sod/Tazobactam Sod 4.5 gm in 100 mls @ 200 mls/hr 12/25/20 12:00 12/27/20 06:37 Zosyn/Ns 4.5gm/100ml IV 200 mls/hr Q6H RAEANN Administration Protocol Norepinephrine 8 mg/ Sodium 250 mls @ 3.75 mls/hr 12/25/20 22:00 12/27/20 10:12 Chloride IV 18 mcg/min TITR RAEANN 33.75 mls/hr Administration Protocol 2 MCG/MIN Insulin Glargine 8 units 12/17/20 13:52 12/26/20 21:23 Insulin Glargine 100 Units/Ml SUB-Q 8 units QHS [facility] Administration Insulin Human Lispro 0 unit 11/22/20 06:00 12/27/20 06:17 Insulin Lispro 100 Unit/Ml SUB-Q Not Given Q6HR [facility] Protocol Metoclopramide HCl 10 mg 11/15/20 23:55 Metoclopramide 10 Mg/2 Ml Inj IV Q6H PRN Nausea And Vomiting Multi-Ingred Cream/Lotion/Oil/Oint 1 applic 11/21/20 21:53 Mineral Oil/Petrolatum, White Ophth Oint 3.5 Gm OU Q4HR PRN Dry Eye(s) Ondansetron HCl 4 mg 11/15/20 23:55 Ondansetron 4 Mg/2 Ml Inj IV Q8H PRN Nausea And Vomiting Polyethylene Glycol 17 gm 12/23/20 10:00 12/27/20 10:12 Polyethylene Glycol 3350 17 Gm Powder PO 17 gm QDAY RAEANN Administration Senna/Docusate Sodium 2 tab 12/21/20 14:00 12/27/20 06:37 Sennosides/Docusate Sodium 8.6/50 Mg Tab PO 2 tab Q8HR RAEANN Administration Simple Syrup 15 ml 11/23/20 11:53 Simple Syrup 15 Ml FEEDTUBE PRN PRN Hypoglycemia Simple Syrup 30 ml 11/23/20 11:53 Simple Syrup 15 Ml FEEDTUBE PRN PRN Hypoglycemia Sodium Bicarbonate 325 mg 11/23/20 11:53 12/05/20 23:46 Sodium Bicarbonate 325 Mg Tab FEEDTUBE 325 mg PRN PRN Administration For Clogged Feeding Tube Sodium Chloride 10 ml 11/16/20 10:00 12/27/20 10:16 Sodium Chloride 0.9% 10 Ml Flush Syringe IV 10 ml BID RAEANN Administration Sodium Chloride 10 ml 11/15/20 23:55 12/03/20 00:21 Sodium Chloride 0.9% 10 Ml Flush Syringe IV 10 ml PRN PRN Administration LINE FLUSH Nutrition/Malnutrition Assess - Dietary Evaluation Nutrition/Malnutrition Findings: Nutrition Notes Start: 11/20/20 12:03 Freq: Status: Active Protocol: Document 12/25/20 11:32 AL (Rec: 12/25/20 11:37 AL [id number]) Co-Sign 12/25/20 11:32 CW Nutrition Notes Initial or Follow up Reassessment Current Diagnosis Diabetes,Sepsis,Respiratory Failure Other Pertinent Diagnosis Bilat pneu, COVID-19 (+) Current Diet Glucerna 1.2 at 60 ml/hr Labs/Tests Reviewed Pertinent Medications Levophed in NS Propofol at 8.7 ml/hr (229 kcal) Lasix Height 5 ft 6 in Weight 83.9 kg Usual Body Weight 80.5 kg [place] Body Weight (kg) 64.54 BMI 29.8 Weight change and time frame Wt change 2.8 kg (3%) noted. Pt has edema. Weight Status Overweight Subjective/Other Information F/U for TF tolerance and last BM. Per RN, pt had last BM yesterday 12/24. Pt tolerates TF at 60 ml/hr (goal rate). Percent of energy/protein needs met: 100%/100% Burn Absent Trauma Absent GI Symptoms None Difficulty In Swallowing,Chewing Current % PO Negligible Minimum of two criteria Yes Interpretation of Weight Loss (severe) >2% in 1 week Fluid Accumulation Moderate to Severe (severe) #3 Nutrition Diagnosis Inadequate oral intake Diagnosis Progress(for reassessment Continues documentation) #2 Nutrition Diagnosis Malnutrition As Evidenced by Signs and Symptoms Pt meeting 100%/100% of estimated energy/protein needs via TF for >7 days Diagnosis Progress(for reassessment Improved documentation) #1 Nutrition Diagnosis Unintended weight loss Diagnosis Progress(for reassessment Continues documentation) Is patient on ventilator? Yes Is Patient Ambulatory and/or Out of Bed No [facility] 1920.756 Kcal/Kg value to use for calculation 22 Approximate Energy Requirements Using 1846 kcal/Kg Calculation Used for Recommendations [facility] Additional Notes Protein: 87-145 g/day (1.2-2g/ kg) Fluid: 1ml/kcal or per MD Nutrition Intervention Change Diet Order: Continue TF Nutrition Support: Glucerna 1.2 at 65 ml/hr. Flush 125 ml q4h Kcal 1,872 Protein (gm) 93 Fluid (mL) 1,255 Goal #1 Meet at least 75% of energy and protein needs via TF Goal #2 TF tolerance Anticipated Discharge Needs: Unable to determine at this time Follow-Up By: 01/01/21 Additional Comments F/U for TF tolerance.
[2020-12-27 12:37] LABS: Alanine Aminotransferase 24 units/L (7-56); Albumin 1.1 g/dL (3.9-5); Blood Urea Nitrogen 16 mg/dL (9-20); Hemolysis Index 154
[2020-12-27 12:40] LABS: BUN/Creatinine Ratio 80
--- NOTE | 2020-12-27 13:53 | Progress Note ---
Assessment and Plan 59 y/o male with acute respiratory failure, abnormal CXR and abnormal lab studies. 12/27/20: Continue supportive measures. Continue sedation and vasopressor support. Chest tubes remain until extubated if able to do so. Very very guarde d prognosis. 12/26/20: Very very poor prognosis given prolong time of hypoxemia during the events from and continued hypoxemia despite 100%. PTX's and recurrent PTX's have been very common with this current wave of COVID 19 so not entirely unexpected. Appreciate surgery help with second chest tube. Will Strip tubes again tomorrow morning. COntinue sedation and vasopressor support. Very very poor prognosis. Please do not give any further lasix, as the changes seen are not edema related. 12/24/20: If patient spikes again in the next 24 hours, please reculture urine and blood. In regards to cuff, as long as patient is not losing volumes, no indication to change tube out as of yet. Will continue to monitor. Continue abx as ID recs. Attempt to wean back down again but unfortunately this has been an ongoing issue for this patient. Continue pressors to help achieve adequate sedation for vent management. Prognosis remains guarded. 12/23/20: Continue current level of sedation. Wean parameters as listed below. appreciate ID recs and help. 12/22/20: Continue current level of sedation. Ok to wean FiO2 for sats >88% and PaO2>55mmHg. Follow up ID recs in regards to abx therapy. Prognosis unfortunately still remains guarded. 12/21/20: Back up to 100%. Peep is the same chest tubes intact. Long discussion on rounds, will restart Diprovan to obtain adequate sedation (RASS of -4). Ok to titrate pressors to achieve adequate sedation if blood pressure is compromised by sedatives. Prognosis remains guarded. Awaiting speciation of other cultures. 12/18/20: Still on 75% and 18 of PEEP. Follow up cultures, Blood pending, urine has not resulted yet. Had another temp at 20:00 last night. CXR looks more like pulmonary edema but not in a position to diurese at this time as he occasionally requires vasopressor support given the amount of sedation needed to achieve a RASS of 4. If he continues to spike, would consider hospital acquired coverage of abx therapy. Prognosis remains guarded. 12/17/20: Back down to 75%. Febrile last night, if and when spikes again today, please obtain blood cultures times 2 and urine. Will go ahead and order repeat CXR now. Prognosis still remains guarded. 12/16/20: Back up to 100%. Once stabilized will attempt to wean back down. ABG in the am and may need to consider repeat ABG later this afternoon pending clinical state. Unable to prone given bilateral chest tubes. Prognosis remains guarded to poor. 12/15/20: Tolerating weaning from yesterday. RT to attempt to wean some more tod ay. Kidney function remains unchanged. Guarded prognosis. 12/14/20: Unable to wean FiO2 today. Continue supportive measures. Great that his kidney function has maintained but given the amount of oxygen he continues to require, his chances of recovery continue to decrease. Family aware and will up date them as needed. Very very guarded prognosis. 12/13/20: WIll start Weaning FiO2 again tomorrow morning of PaO2 remains this good. Continue all other supportive measures. Guarded prognosis. Monitor renal function closely. 12/12/20: Long discussion with brother at door. Patient remains full code which is not unreasonable but family is realistic about outcome being poor. Will continue all supportive measures. IF clinical state worsens, will ask family to come back to see patient. Guarded Prognosis. 12/11/20: Will attempt to wean Diprovan off and increase precedex. Triglycerides were ok. IF we have to support with pressors we will but I have asked nursing to please be detailed in their checkouts as to why they did certain things with the continuous drips. Continue supportive measures. Brother is going to try to come and see him from [place] 12/10/20: No acute events overnight. Patient has had waxing and waning of the amount of oxygen he has required over the last 24-72 hours. I have a bad feeling that he is on the brink of cardiac arrest and this could happen at any moment. I am going to reach out to the brother today to explain to him my concerns. Patient is a full code. Very very guarded prognosis. 12/09/20: Repeat ABG later today. Wean FiO2 for sats >88%. Repeat CXR as well. With BP dropping could be relative adrenal insufficiency, will watch for now, however if pressor requirement increases would consider stress dose steroids and maybe volume replacement. Follow up cultures. Guarded prognosis. 12/08/20: Increase TV to 425. Drop FiO2 to 65% and wean for sats >88%. COntinue chest tubes. Change steroids to 20q12. 12/07/20: CXR is stable, no indication for another chest tube at this time. Will repeat ABG in 1 hour post change to 70% and wean accordingly. Dropping steroids to 20q8. Guarded prognosis. Same weaning parameters apply today as of 12/04/20 12/04/20: Continue to wean steroids to off. Continue to wean FiO2 for sats >88 %. Keep PEEP at current level, would not feel comfortable weaning PEEP until FiO2 at 35-40%. Continue chest tubes to suction. PaO2 of >55, pH of >7.2 and sats >88% are acceptable. : Dropped steroids down to 40q8 and will start to wean from there. Continue to slowly wean FiO2 first, keep PEEP at current level. Spoke with Kehinde, please see my event note, who is the biological brother. He had no questions but thanked us for our care. Prognosis remains very very guarded. PaO2 of 55 and pH of >7.2 and sats of >88% are all acceptable. 12/02/20: Wean FiO2 for sats >88% and PaO2 >55. Unable to prone currently secondary to bilateral chest tubes. COntinue high dose steroids. CM To figure out who is the immediate next of kin that can make decisions and then we will discuss the current clinical situation with them. 12/01/20: Continue PEEP and FiO2 elevated to keep sats >88% and PaO2 >55. Small lung volumes and high PEEP. very very guarded prognosis. 11/30/20: Worsening hypoxemia. Chest tubes stable. Likely just worsening disease. Unable to prone now. Increase PEEP to 18 and FiO2 back up to 100. Continue 3 sedatives for RASS of -2. Obtain 12 lead to look at T waves as K was only 4.6 on yesterday. Guarded, guarded prognosis 11/29/20: Second chest tube in on yesterday. CXR is stable. ABG unchanged. Will likely increase PEEP now that chest tubes are in. No further paralytics. Still making good urine. Prognosis remains guarded. Will check chemistry to assess Potassium levels given peaked t's seen on monitor. 11/28/20: Second chest tube today. Once chest tube in, will likely increase PEEP to 18 and repeat gas about 2 hours after this. Continue paralytic today. No proning now that patient will have bilateral chest tubes. VEry guarded prognosis. 11/27/20: Spoke with surgery who have agreed to evaluate and placed chest tube on either right or left side pending CXR reading. Will monitor for 36-48 hours and if no resolution, will need chest tube placed on opposite side as well. Once placed, will likely paralyze again but hold on proning for now. Guarded prognosis. 11/26/20: Paralytics are off. Continue current level of sedation. Will prone for 12 hours today and repeat ABG in the am. Continue lung protective strategy. Guarded prognosis. 11/25/20: Prone again to 16 hours, will prone at 12-12:30. Continue paralytics for 24 more hours. Discussed the idea of permissive hypercapnea again today and as long as pH is above 7.2 no changes should be made to TV and or RR without discussing with physician. Continue to monitor urine output, guarded prognosis. Hold on lasix therapy today. 11/24/20: Prone again today. Will try 48 hours of paralyzing the patient to see if this will help with oxygenation. Will speak with RT's about permissive hypercapnea and that pH's of 7.2 and greater are ok. Continue high doses steroids. Prognosis is still very very guarded. If not improvement with paralytics, will attempt transfer. 11/23/20: Prone again today for 12 hours. Continue High Dose steroids. Hold on lasix given marginal BP's. Prognosis is very very guarded to poor. Will continue all supportive measures. If not able to wean from 100%, will attempt transfer for ECMO. 1. Pulm- Agree with concern for covid. Agree with empiric abx but procal is only mildly elevated. Await cultures. Continue bipap therapy for now but will need to monitor closely. [facility] has ordered CTA, but I spoke with pharmacy and we will empirically treat with BID lovenox therapy. COntinue empiric steroid therapy for COVID until studies back. Not sure that he will be able to prone on bipap therapy. Monitor volume status and run as dry as possible. 2. Renal-normal function but all electrolytes abnormal. HYponatremia and Hypochloremia volume up vs volume down. Sent BNP. Would suggest obtaning echo as well. Not sure what to make of elevated lactate unless that is from increased work of breathing or damage to other tissue unknown. May need to check LFT's and Coags as well. 3. Guarded Prognosis. CCT 31 minutes. Subjective Date of service: 12/27/20 Principal diagnosis: COVID-19 Interval history: No acute events. PaO2 is slightly better. Objective Vital Signs - 12hr 12/27/20 12/27/20 12/27/20 01:00 01:15 01:30 Temperature Pulse Rate 72 75 73 Pulse Rate [ From Monitor] Respiratory 30 H 30 H 30 H Rate Blood Pressure 100/58 88/50 85/51 O2 Sat by Pulse 98 99 98 Oximetry 12/27/20 12/27/20 12/27/20 01:45 03:00 03:15 Temperature Pulse Rate 75 73 72 Pulse Rate [ From Monitor] Respiratory 30 H 30 H 30 H Rate Blood Pressure 93/52 93/52 104/61 O2 Sat by Pulse 94 97 99 Oximetry 12/27/20 12/27/20 12/27/20 03:30 03:45 04:00 Temperature 97.8 F Pulse Rate 73 71 73 Pulse Rate [ From Monitor] Respiratory 30 H 30 H 30 H Rate Blood Pressure 107/60 103/57 104/59 O2 Sat by Pulse 99 99 99 Oximetry 12/27/20 12/27/20 12/27/20 04:15 04:30 04:36 Temperature Pulse Rate 73 74 75 Pulse Rate [ From Monitor] Respiratory 30 H 30 H Rate Blood Pressure 101/54 104/57 104/57 O2 Sat by Pulse 94 97 98 Oximetry 12/27/20 12/27/20 12/27/20 04:45 05:00 05:15 Temperature Pulse Rate 73 77 74 Pulse Rate [ From Monitor] Respiratory 30 H 29 H 30 H Rate Blood Pressure 104/58 82/48 111/67 O2 Sat by Pulse 98 97 99 Oximetry 12/27/20 12/27/20 12/27/20 05:30 05:45 06:00 Temperature Pulse Rate 75 75 76 Pulse Rate [ From Monitor] Respiratory 30 H 30 H 30 H Rate Blood Pressure 107/61 101/58 104/61 O2 Sat by Pulse 98 98 98 Oximetry 12/27/20 12/27/20 12/27/20 06:15 06:30 06:45 Temperature Pulse Rate 74 74 75 Pulse Rate [ From Monitor] Respiratory 30 H 30 H 30 H Rate Blood Pressure 101/59 100/55 104/54 O2 Sat by Pulse 98 99 99 Oximetry 12/27/20 12/27/20 12/27/20 07:00 07:15 07:30 Temperature Pulse Rate 75 75 74 Pulse Rate [ From Monitor] Respiratory 23 30 H 30 H Rate Blood Pressure 103/54 101/54 96/54 O2 Sat by Pulse 99 99 99 Oximetry 12/27/20 12/27/20 12/27/20 07:45 08:00 08:15 Temperature 97.6 F Pulse Rate 75 79 76 Pulse Rate [ 79 From Monitor] Respiratory 30 H 30 H 30 H Rate Blood Pressure 101/54 91/46 97/53 O2 Sat by Pulse 98 97 96 Oximetry 12/27/20 12/27/20 12/27/20 08:30 08:45 09:00 Temperature Pulse Rate 77 75 75 Pulse Rate [ From Monitor] Respiratory 30 H 30 H 30 H Rate Blood Pressure 97/54 90/45 103/65 O2 Sat by Pulse 98 97 97 Oximetry 12/27/20 12/27/20 09:15 11:49 Temperature Pulse Rate 79 77 Pulse Rate [ From Monitor] Respiratory 30 H Rate Blood Pressure 100/53 102/56 O2 Sat by Pulse 93 95 Oximetry Constitutional: lethargic, comatose, other (on vent orally intubated) ENT: other (Now intubated) Effort: other (vent support ) Ascultation: Bilateral: diminished breath sounds, rales, rhonchi, other (coarse BS bilaterally) Percussion: Bilateral: not dull Cardiovascular: regular rate and rhythm (tachy ) Gastrointestinal: soft, non-tender, non-distended Integumentary: normal Extremities: no cyanosis, no edema, pink and warm Neurologic: other (sedated) Psychiatric: other (sedated) CBC and BMP: 12/26/20 05:26 12/27/20 10:52 ABG, PT/INR, D-dimer: ABG ABG pH 7.337 (7.320-7.450) 12/27/20 03:19 POC ABG pCO2 75.0 mmHg (32.0-48.0) H 12/27/20 03:19 ABG pCO2 81.3 mm Hg 12/08/20 04:12 POC ABG pO2 74.3 mmHg (83-108) L 12/27/20 03:19 ABG pO2 69.7 mm Hg (80.0-90.0) L 12/08/20 04:12 POC ABG HCO3 39.3 12/27/20 03:19 ABG O2 Saturation 94.7 (0-100) 12/27/20 03:19 PT/INR, D-dimer D-Dimer 926.11 ng/mlDDU (0-234) H 11/26/20 06:04 Abnormal lab findings: Abnormal Labs 11/15/20 11/15/20 11/15/20 10:39 10:39 10:39 WBC 14.3 H RBC 5.17 H Hgb Hct RDW Plt Count Lymph % (Auto) 7.8 L George % (Auto) 7.6 H Lymph # (Auto) 1.1 L George # (Auto) 1.1 H Baso # (Auto) Seg Neutrophils % 83.3 H Seg Neuts % (Manual) Lymphocytes % (Manual) Nucleated RBC % Seg Neutrophils # 11.9 H Seg Neutrophils # Man Lymphocytes # (Manual) D-Dimer ABG pH POC ABG pCO2 POC ABG pO2 ABG pO2 ABG HCO3 ABG O2 Saturation ABG Base Excess ABG Hemoglobin ABG Oxyhemoglobin ABG Sodium ABG Potassium ABG Chloride ABG Glucose Oxyhemoglobin Carboxyhemoglobin Sodium 128 L Potassium Chloride 96.0 L Carbon Dioxide BUN Creatinine 0.7 L Glucose 238 H POC Glucose Hemoglobin A1c Lactic Acid 4.10 H* Calcium 7.0 L Magnesium Ferritin Total Bilirubin 1.40 H AST 49 H ALT 70 H Alkaline Phosphatase Lactate Dehydrogenase 663 H Total Creatine Kinase C-Reactive Protein 19.80 H Total Protein Albumin 2.9 L Triglycerides Arterial Blood Glucose Arterial Blood Ionized Calcium Ur Specific [place] Urine WBC (Auto) Vancomycin Trough Coronavirus (PCR) 11/15/20 11/15/20 11/15/20 10:39 10:39 11:20 WBC RBC Hgb Hct RDW Plt Count Lymph % (Auto) George % (Auto) Lymph # (Auto) George # (Auto) Baso # (Auto) Seg Neutrophils % Seg Neuts % (Manual) Lymphocytes % (Manual) Nucleated RBC % Seg Neutrophils # Seg Neutrophils # Man Lymphocytes # (Manual) D-Dimer > 07930 H ABG pH POC ABG pCO2 29.9 L POC ABG pO2 137.3 H ABG pO2 ABG HCO3 ABG O2 Saturation ABG Base Excess ABG Hemoglobin ABG Oxyhemoglobin ABG Sodium 126.5 L ABG Potassium ABG Chloride ABG Glucose 248 H Oxyhemoglobin Carboxyhemoglobin Sodium Potassium Chloride Carbon Dioxide BUN Creatinine Glucose POC Glucose Hemoglobin A1c Lactic Acid Calcium Magnesium Ferritin 672.8 H Total Bilirubin AST ALT Alkaline Phosphatase Lactate Dehydrogenase Total Creatine Kinase C-Reactive Protein Total Protein Albumin Triglycerides Arterial Blood Glucose 248 H Arterial Blood Ionized Calcium 4.1 L Ur Specific [place] Urine WBC (Auto) Vancomycin Trough Coronavirus (PCR) 11/15/20 11/15/20 11/16/20 13:41 23:41 01:45 WBC RBC Hgb Hct RDW Plt Count Lymph % (Auto) George % (Auto) Lymph # (Auto) George # (Auto) Baso # (Auto) Seg Neutrophils % Seg Neuts % (Manual) Lymphocytes % (Manual) Nucleated RBC % Seg Neutrophils # Seg Neutrophils # Man Lymphocytes # (Manual) D-Dimer ABG pH POC ABG pCO2 POC ABG pO2 ABG pO2 ABG HCO3 ABG O2 Saturation ABG Base Excess ABG Hemoglobin ABG Oxyhemoglobin ABG Sodium ABG Potassium ABG Chloride ABG Glucose Oxyhemoglobin Carboxyhemoglobin Sodium Potassium Chloride Carbon Dioxide BUN Creatinine Glucose POC Glucose 284 H Hemoglobin A1c Lactic Acid 2.30 H* Calcium Magnesium Ferritin Total Bilirubin AST ALT Alkaline Phosphatase Lactate Dehydrogenase Total Creatine Kinase C-Reactive Protein Total Protein Albumin Triglycerides Arterial Blood Glucose Arterial Blood Ionized Calcium Ur Specific [place] 1.037 H Urine WBC (Auto) Vancomycin Trough Coronavirus (PCR) 11/16/20 11/16/20 11/16/20 05:29 05:29 05:29 WBC 12.9 H RBC Hgb Hct RDW Plt Count Lymph % (Auto) 4.5 L George % (Auto) Lymph # (Auto) 0.6 L George # (Auto) Baso # (Auto) 0.2 H Seg Neutrophils % 89.8 H Seg Neuts % (Manual) Lymphocytes % (Manual) Nucleated RBC % Seg Neutrophils # 11.5 H Seg Neutrophils # Man Lymphocytes # (Manual) D-Dimer ABG pH POC ABG pCO2 POC ABG pO2 ABG pO2 ABG HCO3 ABG O2 Saturation ABG Base Excess ABG Hemoglobin ABG Oxyhemoglobin ABG Sodium ABG Potassium ABG Chloride ABG Glucose Oxyhemoglobin Carboxyhemoglobin Sodium 131 L Potassium Chloride Carbon Dioxide 21 L BUN 23 H Creatinine 0.6 L Glucose 342 H POC Glucose Hemoglobin A1c Lactic Acid 2.60 H* Calcium 7.0 L Magnesium Ferritin Total Bilirubin AST ALT Alkaline Phosphatase Lactate Dehydrogenase Total Creatine Kinase C-Reactive Protein Total Protein Albumin 2.4 L Triglycerides Arterial Blood Glucose Arterial Blood Ionized Calcium Ur Specific [place] Urine WBC (Auto) Vancomycin Trough Coronavirus (PCR) 11/16/20 11/16/20 11/16/20 05:29 08:11 12:11 WBC RBC Hgb Hct RDW Plt Count Lymph % (Auto) George % (Auto) Lymph # (Auto) George # (Auto) Baso # (Auto) Seg Neutrophils % Seg Neuts % (Manual) Lymphocytes % (Manual) Nucleated RBC % Seg Neutrophils # Seg Neutrophils # Man Lymphocytes # (Manual) D-Dimer ABG pH POC ABG pCO2 POC ABG pO2 ABG pO2 ABG HCO3 ABG O2 Saturation ABG Base Excess ABG Hemoglobin ABG Oxyhemoglobin ABG Sodium ABG Potassium ABG Chloride ABG Glucose Oxyhemoglobin Carboxyhemoglobin Sodium Potassium Chloride Carbon Dioxide BUN Creatinine Glucose POC Glucose 329 H 320 H Hemoglobin A1c 11.7 H Lactic Acid Calcium Magnesium Ferritin Total Bilirubin AST ALT Alkaline Phosphatase Lactate Dehydrogenase Total Creatine Kinase C-Reactive Protein Total Protein Albumin Triglycerides Arterial Blood Glucose Arterial Blood Ionized Calcium Ur Specific [place] Urine WBC (Auto) Vancomycin Trough Coronavirus (PCR) 11/16/20 11/16/20 11/16/20 16:13 21:29 Unknown WBC RBC Hgb Hct RDW Plt Count Lymph % (Auto) George % (Auto) Lymph # (Auto) George # (Auto) Baso # (Auto) Seg Neutrophils % Seg Neuts % (Manual) Lymphocytes % (Manual) Nucleated RBC % Seg Neutrophils # Seg Neutrophils # Man Lymphocytes # (Manual) D-Dimer ABG pH POC ABG pCO2 POC ABG pO2 ABG pO2 ABG HCO3 ABG O2 Saturation ABG Base Excess ABG Hemoglobin ABG Oxyhemoglobin ABG Sodium ABG Potassium ABG Chloride ABG Glucose Oxyhemoglobin Carboxyhemoglobin Sodium Potassium Chloride Carbon Dioxide BUN Creatinine Glucose POC Glucose 257 H 376 H Hemoglobin A1c Lactic Acid Calcium Magnesium Ferritin Total Bilirubin AST ALT Alkaline Phosphatase Lactate Dehydrogenase Total Creatine Kinase C-Reactive Protein Total Protein Albumin Triglycerides Arterial Blood Glucose Arterial Blood Ionized Calcium Ur Specific [place] Urine WBC (Auto) Vancomycin Trough Coronavirus (PCR) Positive A 11/17/20 11/17/20 11/17/20 07:42 12:07 17:25 WBC RBC Hgb Hct RDW Plt Count Lymph % (Auto) George % (Auto) Lymph # (Auto) George # (Auto) Baso # (Auto) Seg Neutrophils % Seg Neuts % (Manual) Lymphocytes % (Manual) Nucleated RBC % Seg Neutrophils # Seg Neutrophils # Man Lymphocytes # (Manual) D-Dimer ABG pH POC ABG pCO2 POC ABG pO2 ABG pO2 ABG HCO3 ABG O2 Saturation ABG Base Excess ABG Hemoglobin ABG Oxyhemoglobin ABG Sodium ABG Potassium ABG Chloride ABG Glucose Oxyhemoglobin Carboxyhemoglobin Sodium Potassium Chloride Carbon Dioxide BUN Creatinine Glucose POC Glucose 231 H 380 H 302 H Hemoglobin A1c Lactic Acid Calcium Magnesium Ferritin Total Bilirubin AST ALT Alkaline Phosphatase Lactate Dehydrogenase Total Creatine Kinase C-Reactive Protein Total Protein Albumin Triglycerides Arterial Blood Glucose Arterial Blood Ionized Calcium Ur Specific [place] Urine WBC (Auto) Vancomycin Trough Coronavirus (PCR) 11/17/20 11/18/20 11/18/20 21:53 04:25 07:45 WBC RBC Hgb Hct RDW Plt Count Lymph % (Auto) George % (Auto) Lymph # (Auto) George # (Auto) Baso # (Auto) Seg Neutrophils % Seg Neuts % (Manual) Lymphocytes % (Manual) Nucleated RBC % Seg Neutrophils # Seg Neutrophils # Man Lymphocytes # (Manual) D-Dimer ABG pH POC ABG pCO2 POC ABG pO2 ABG pO2 ABG HCO3 ABG O2 Saturation ABG Base Excess ABG Hemoglobin ABG Oxyhemoglobin ABG Sodium ABG Potassium ABG Chloride ABG Glucose Oxyhemoglobin Carboxyhemoglobin Sodium 136 L Potassium Chloride Carbon Dioxide BUN 24 H Creatinine 0.6 L Glucose 212 H POC Glucose 293 H 216 H Hemoglobin A1c Lactic Acid Calcium 7.4 L Magnesium Ferritin Total Bilirubin AST 41 H ALT Alkaline Phosphatase 142 H Lactate Dehydrogenase Total Creatine Kinase C-Reactive Protein Total Protein Albumin 2.3 L Triglycerides Arterial Blood Glucose Arterial Blood Ionized Calcium Ur Specific [place] Urine WBC (Auto) Vancomycin Trough Coronavirus (PCR) 11/18/20 11/18/20 11/18/20 12:28 15:58 21:37 WBC RBC Hgb Hct RDW Plt Count Lymph % (Auto) George % (Auto) Lymph # (Auto) George # (Auto) Baso # (Auto) Seg Neutrophils % Seg Neuts % (Manual) Lymphocytes % (Manual) Nucleated RBC % Seg Neutrophils # Seg Neutrophils # Man Lymphocytes # (Manual) D-Dimer ABG pH POC ABG pCO2 POC ABG pO2 ABG pO2 ABG HCO3 ABG O2 Saturation ABG Base Excess ABG Hemoglobin ABG Oxyhemoglobin ABG Sodium ABG Potassium ABG Chloride ABG Glucose Oxyhemoglobin Carboxyhemoglobin Sodium Potassium Chloride Carbon Dioxide BUN Creatinine Glucose POC Glucose 165 H 220 H 311 H Hemoglobin A1c Lactic Acid Calcium Magnesium Ferritin Total Bilirubin AST ALT Alkaline Phosphatase Lactate Dehydrogenase Total Creatine Kinase C-Reactive Protein Total Protein Albumin Triglycerides Arterial Blood Glucose Arterial Blood Ionized Calcium Ur Specific [place] Urine WBC (Auto) Vancomycin Trough Coronavirus (PCR) 11/19/20 11/19/20 11/19/20 05:35 07:40 12:39 WBC RBC Hgb Hct RDW Plt Count Lymph % (Auto) George % (Auto) Lymph # (Auto) George # (Auto) Baso # (Auto) Seg Neutrophils % Seg Neuts % (Manual) Lymphocytes % (Manual) Nucleated RBC % Seg Neutrophils # Seg Neutrophils # Man Lymphocytes # (Manual) D-Dimer ABG pH POC ABG pCO2 POC ABG pO2 ABG pO2 ABG HCO3 ABG O2 Saturation ABG Base Excess ABG Hemoglobin ABG Oxyhemoglobin ABG Sodium ABG Potassium ABG Chloride ABG Glucose Oxyhemoglobin Carboxyhemoglobin Sodium 132 L Potassium Chloride Carbon Dioxide BUN 25 H Creatinine 0.5 L Glucose 179 H POC Glucose 149 H 306 H Hemoglobin A1c Lactic Acid Calcium 7.5 L Magnesium Ferritin Total Bilirubin AST ALT Alkaline Phosphatase 139 H Lactate Dehydrogenase Total Creatine Kinase C-Reactive Protein Total Protein Albumin 2.4 L Triglycerides Arterial Blood Glucose Arterial Blood Ionized Calcium Ur Specific [place] Urine WBC (Auto) Vancomycin Trough Coronavirus (PCR) 11/19/20 11/19/20 11/20/20 16:17 21:25 08:30 WBC RBC Hgb Hct RDW Plt Count Lymph % (Auto) George % (Auto) Lymph # (Auto) George # (Auto) Baso # (Auto) Seg Neutrophils % Seg Neuts % (Manual) Lymphocytes % (Manual) Nucleated RBC % Seg Neutrophils # Seg Neutrophils # Man Lymphocytes # (Manual) D-Dimer ABG pH POC ABG pCO2 POC ABG pO2 ABG pO2 ABG HCO3 ABG O2 Saturation ABG Base Excess ABG Hemoglobin ABG Oxyhemoglobin ABG Sodium ABG Potassium ABG Chloride ABG Glucose Oxyhemoglobin Carboxyhemoglobin Sodium Potassium Chloride Carbon Dioxide BUN Creatinine Glucose POC Glucose 364 H 347 H 141 H Hemoglobin A1c Lactic Acid Calcium Magnesium Ferritin Total Bilirubin AST ALT Alkaline Phosphatase Lactate Dehydrogenase Total Creatine Kinase C-Reactive Protein Total Protein Albumin Triglycerides Arterial Blood Glucose Arterial Blood Ionized Calcium Ur Specific [place] Urine WBC (Auto) Vancomycin Trough Coronavirus (PCR) 11/20/20 11/20/20 11/20/20 08:50 11:32 16:19 WBC RBC Hgb Hct RDW Plt Count Lymph % (Auto) George % (Auto) Lymph # (Auto) George # (Auto) Baso # (Auto) Seg Neutrophils % Seg Neuts % (Manual) Lymphocytes % (Manual) Nucleated RBC % Seg Neutrophils # Seg Neutrophils # Man Lymphocytes # (Manual) D-Dimer ABG pH POC ABG pCO2 POC ABG pO2 ABG pO2 ABG HCO3 ABG O2 Saturation ABG Base Excess ABG Hemoglobin ABG Oxyhemoglobin ABG Sodium ABG Potassium ABG Chloride ABG Glucose Oxyhemoglobin Carboxyhemoglobin Sodium 132 L Potassium Chloride 97.6 L Carbon Dioxide BUN 26 H Creatinine 0.5 L Glucose 201 H POC Glucose 296 H 327 H Hemoglobin A1c Lactic Acid Calcium 7.9 L Magnesium Ferritin Total Bilirubin AST ALT Alkaline Phosphatase 137 H Lactate Dehydrogenase Total Creatine Kinase C-Reactive Protein Total Protein Albumin 2.6 L Triglycerides Arterial Blood Glucose Arterial Blood Ionized Calcium Ur Specific [place] Urine WBC (Auto) Vancomycin Trough Coronavirus (PCR) 11/20/20 11/21/20 11/21/20 22:09 07:59 13:51 WBC RBC Hgb Hct RDW Plt Count Lymph % (Auto) George % (Auto) Lymph # (Auto) George # (Auto) Baso # (Auto) Seg Neutrophils % Seg Neuts % (Manual) Lymphocytes % (Manual) Nucleated RBC % Seg Neutrophils # Seg Neutrophils # Man Lymphocytes # (Manual) D-Dimer ABG pH POC ABG pCO2 POC ABG pO2 ABG pO2 ABG HCO3 ABG O2 Saturation ABG Base Excess ABG Hemoglobin ABG Oxyhemoglobin ABG Sodium ABG Potassium ABG Chloride ABG Glucose Oxyhemoglobin Carboxyhemoglobin Sodium Potassium Chloride Carbon Dioxide BUN Creatinine Glucose POC Glucose 311 H 218 H 304 H Hemoglobin A1c Lactic Acid Calcium Magnesium Ferritin Total Bilirubin AST ALT Alkaline Phosphatase Lactate Dehydrogenase Total Creatine Kinase C-Reactive Protein Total Protein Albumin Triglycerides Arterial Blood Glucose Arterial Blood Ionized Calcium Ur Specific [place] Urine WBC (Auto) Vancomycin Trough Coronavirus (PCR) 11/21/20 11/21/20 11/21/20 16:09 21:34 23:00 WBC RBC Hgb Hct RDW Plt Count Lymph % (Auto) [place] % (Auto) Lymph # (Auto) George # (Auto) Baso # (Auto) Seg Neutrophils % Seg Neuts % (Manual) Lymphocytes % (Manual) Nucleated RBC % Seg Neutrophils # Seg Neutrophils # Man Lymphocytes # (Manual) D-Dimer ABG pH 7.206 L POC ABG pCO2 59.3 H POC ABG pO2 76.7 L ABG pO2 ABG HCO3 ABG O2 Saturation ABG Base Excess ABG Hemoglobin ABG Oxyhemoglobin ABG Sodium 133.1 L ABG Potassium ABG Chloride ABG Glucose 320 H Oxyhemoglobin Carboxyhemoglobin Sodium Potassium Chloride Carbon Dioxide BUN Creatinine Glucose POC Glucose 239 H 279 H Hemoglobin A1c Lactic Acid Calcium Magnesium Ferritin Total Bilirubin AST ALT Alkaline Phosphatase Lactate Dehydrogenase Total Creatine Kinase C-Reactive Protein Total Protein Albumin Triglycerides Arterial Blood Glucose 320 H Arterial Blood Ionized Calcium Ur Specific [place] Urine WBC (Auto) Vancomycin Trough Coronavirus (PCR) 11/22/20 11/22/20 11/22/20 04:52 04:52 04:52 WBC RBC Hgb Hct RDW Plt Count Lymph % (Auto) [place] % (Auto) Lymph # (Auto) [place] # (Auto) Baso # (Auto) Seg Neutrophils % Seg Neuts % (Manual) Lymphocytes % (Manual) Nucleated RBC % Seg Neutrophils # Seg Neutrophils # Man Lymphocytes # (Manual) D-Dimer 1858.36 H ABG pH POC ABG pCO2 POC ABG pO2 ABG pO2 ABG HCO3 ABG O2 Saturation ABG Base Excess ABG Hemoglobin ABG Oxyhemoglobin ABG Sodium ABG Potassium ABG Chloride ABG Glucose Oxyhemoglobin Carboxyhemoglobin Sodium Potassium Chloride Carbon Dioxide BUN Creatinine Glucose POC Glucose Hemoglobin A1c Lactic Acid Calcium Magnesium Ferritin 734.2 H Total Bilirubin AST ALT Alkaline Phosphatase Lactate Dehydrogenase 404 H Total Creatine Kinase C-Reactive Protein 2.80 H Total Protein Albumin Triglycerides Arterial Blood Glucose Arterial Blood Ionized Calcium Ur Specific [place] Urine WBC (Auto) Vancomycin Trough Coronavirus (PCR) 11/22/20 11/22/20 11/22/20 05:12 05:39 11:50 WBC RBC Hgb Hct RDW Plt Count Lymph % (Auto) [place] % (Auto) Lymph # (Auto) [place] # (Auto) Baso # (Auto) Seg Neutrophils % Seg Neuts % (Manual) Lymphocytes % (Manual) Nucleated RBC % Seg Neutrophils # Seg Neutrophils # Man Lymphocytes # (Manual) D-Dimer ABG pH POC ABG pCO2 POC ABG pO2 51.0 L ABG pO2 ABG HCO3 ABG O2 Saturation ABG Base Excess ABG Hemoglobin ABG Oxyhemoglobin ABG Sodium 131.2 L ABG Potassium 4.6 H ABG Chloride ABG Glucose 317 H Oxyhemoglobin Carboxyhemoglobin Sodium Potassium Chloride Carbon Dioxide BUN Creatinine Glucose POC Glucose 340 H 417 H Hemoglobin A1c Lactic Acid Calcium Magnesium Ferritin Total Bilirubin AST ALT Alkaline Phosphatase Lactate Dehydrogenase Total Creatine Kinase C-Reactive Protein Total Protein Albumin Triglycerides Arterial Blood Glucose 317 H Arterial Blood Ionized Calcium 4.4 L Ur Specific [place] Urine WBC (Auto) Vancomycin Trough Coronavirus (PCR) 11/22/20 11/22/20 11/22/20 12:22 12:22 17:10 WBC 14.4 H RBC Hgb Hct RDW Plt Count Lymph % (Auto) [place] % (Auto) Lymph # (Auto) [place] # (Auto) Baso # (Auto) Seg Neutrophils % Seg Neuts % (Manual) 98.0 H Lymphocytes % (Manual) Nucleated RBC % Seg Neutrophils # Seg Neutrophils # Man 14.1 H Lymphocytes # (Manual) 0.0 L D-Dimer ABG pH POC ABG pCO2 POC ABG pO2 ABG pO2 ABG HCO3 ABG O2 Saturation ABG Base Excess ABG Hemoglobin ABG Oxyhemoglobin ABG Sodium ABG Potassium ABG Chloride ABG Glucose Oxyhemoglobin Carboxyhemoglobin Sodium 132 L Potassium Chloride Carbon Dioxide BUN 36 H Creatinine 0.6 L Glucose 219 H POC Glucose 157 H Hemoglobin A1c Lactic Acid Calcium 7.2 L Magnesium Ferritin Total Bilirubin AST ALT Alkaline Phosphatase Lactate Dehydrogenase Total Creatine Kinase C-Reactive Protein Total Protein Albumin Triglycerides Arterial Blood Glucose Arterial Blood Ionized Calcium Ur Specific [place] Urine WBC (Auto) Vancomycin Trough Coronavirus (PCR) 11/22/20 11/22/20 11/22/20 18:33 21:44 23:47 WBC RBC Hgb Hct RDW Plt Count Lymph % (Auto) [place] % (Auto) Lymph # (Auto) [place] # (Auto) Baso # (Auto) Seg Neutrophils % Seg Neuts % (Manual) Lymphocytes % (Manual) Nucleated RBC % Seg Neutrophils # Seg Neutrophils # Man Lymphocytes # (Manual) D-Dimer ABG pH POC ABG pCO2 POC ABG pO2 60.8 L ABG pO2 ABG HCO3 ABG O2 Saturation ABG Base Excess ABG Hemoglobin ABG Oxyhemoglobin 88.1 L ABG Sodium 135.1 L ABG Potassium ABG Chloride ABG Glucose 141 H Oxyhemoglobin Carboxyhemoglobin Sodium Potassium Chloride Carbon Dioxide BUN Creatinine Glucose POC Glucose 117 H 123 H Hemoglobin A1c Lactic Acid Calcium Magnesium Ferritin Total Bilirubin AST ALT Alkaline Phosphatase Lactate Dehydrogenase Total Creatine Kinase C-Reactive Protein Total Protein Albumin Triglycerides Arterial Blood Glucose 141 H Arterial Blood Ionized Calcium Ur Specific [place] Urine WBC (Auto) Vancomycin Trough Coronavirus (PCR) 11/23/20 11/23/20 11/23/20 04:00 04:00 05:23 WBC 14.4 H RBC Hgb Hct RDW Plt Count Lymph % (Auto) [place] % (Auto) Lymph # (Auto) [place] # (Auto) Baso # (Auto) Seg Neutrophils % Seg Neuts % (Manual) Lymphocytes % (Manual) Nucleated RBC % Seg Neutrophils # Seg Neutrophils # Man Lymphocytes # (Manual) D-Dimer ABG pH POC ABG pCO2 POC ABG pO2 ABG pO2 ABG HCO3 ABG O2 Saturation ABG Base Excess ABG Hemoglobin ABG Oxyhemoglobin ABG Sodium ABG Potassium ABG Chloride ABG Glucose Oxyhemoglobin Carboxyhemoglobin Sodium 136 L Potassium Chloride Carbon Dioxide BUN 33 H Creatinine 0.6 L Glucose 115 H POC Glucose 173 H Hemoglobin A1c Lactic Acid Calcium 7.1 L Magnesium Ferritin Total Bilirubin AST 64 H ALT 75 H Alkaline Phosphatase Lactate Dehydrogenase Total Creatine Kinase C-Reactive Protein Total Protein 5.9 L D Albumin 2.4 L Triglycerides Arterial Blood Glucose Arterial Blood Ionized Calcium Ur Specific [place] Urine WBC (Auto) Vancomycin Trough Coronavirus (PCR) 11/23/20 11/23/20 11/23/20 05:40 11:27 17:10 WBC RBC Hgb Hct RDW Plt Count Lymph % (Auto) [place] % (Auto) Lymph # (Auto) [place] # (Auto) Baso # (Auto) Seg Neutrophils % Seg Neuts % (Manual) Lymphocytes % (Manual) Nucleated RBC % Seg Neutrophils # Seg Neutrophils # Man Lymphocytes # (Manual) D-Dimer ABG pH POC ABG pCO2 POC ABG pO2 56.5 L ABG pO2 ABG HCO3 ABG O2 Saturation ABG Base Excess ABG Hemoglobin ABG Oxyhemoglobin ABG Sodium ABG Potassium ABG Chloride 109.0 H ABG Glucose 114 H Oxyhemoglobin Carboxyhemoglobin Sodium Potassium Chloride Carbon Dioxide BUN Creatinine Glucose POC Glucose 114 H 136 H Hemoglobin A1c Lactic Acid Calcium Magnesium Ferritin Total Bilirubin AST ALT Alkaline Phosphatase Lactate Dehydrogenase Total Creatine Kinase C-Reactive Protein Total Protein Albumin Triglycerides Arterial Blood Glucose 114 H Arterial Blood Ionized Calcium 4.5 L Ur Specific [place] Urine WBC (Auto) Vancomycin Trough Coronavirus (PCR) 11/24/20 11/24/20 11/24/20 05:14 05:14 05:14 WBC RBC Hgb Hct RDW Plt Count Lymph % (Auto) [place] % (Auto) Lymph # (Auto) [place] # (Auto) Baso # (Auto) Seg Neutrophils % Seg Neuts % (Manual) Lymphocytes % (Manual) Nucleated RBC % Seg Neutrophils # Seg Neutrophils # Man Lymphocytes # (Manual) D-Dimer 1433.39 H ABG pH POC ABG pCO2 POC ABG pO2 ABG pO2 ABG HCO3 ABG O2 Saturation ABG Base Excess ABG Hemoglobin ABG Oxyhemoglobin ABG Sodium ABG Potassium ABG Chloride ABG Glucose Oxyhemoglobin Carboxyhemoglobin Sodium Potassium Chloride Carbon Dioxide BUN Creatinine Glucose POC Glucose Hemoglobin A1c Lactic Acid Calcium Magnesium Ferritin 997.5 H Total Bilirubin AST ALT Alkaline Phosphatase Lactate Dehydrogenase 463 H Total Creatine Kinase C-Reactive Protein Total Protein Albumin Triglycerides Arterial Blood Glucose Arterial Blood Ionized Calcium Ur Specific [place] Urine WBC (Auto) Vancomycin Trough Coronavirus (PCR) 11/24/20 11/24/20 11/24/20 05:31 05:36 12:05 WBC RBC Hgb Hct RDW Plt Count Lymph % (Auto) [place] % (Auto) Lymph # (Auto) [place] # (Auto) Baso # (Auto) Seg Neutrophils % Seg Neuts % (Manual) Lymphocytes % (Manual) Nucleated RBC % Seg Neutrophils # Seg Neutrophils # Man Lymphocytes # (Manual) D-Dimer ABG pH POC ABG pCO2 POC ABG pO2 57.2 L ABG pO2 ABG HCO3 ABG O2 Saturation ABG Base Excess ABG Hemoglobin ABG Oxyhemoglobin ABG Sodium ABG Potassium ABG Chloride ABG Glucose 180 H Oxyhemoglobin Carboxyhemoglobin Sodium Potassium Chloride Carbon Dioxide BUN Creatinine Glucose POC Glucose 199 H 143 H Hemoglobin A1c Lactic Acid Calcium Magnesium Ferritin Total Bilirubin AST ALT Alkaline Phosphatase Lactate Dehydrogenase Total Creatine Kinase C-Reactive Protein Total Protein Albumin Triglycerides Arterial Blood Glucose 180 H Arterial Blood Ionized Calcium 4.5 L Ur Specific [place] Urine WBC (Auto) Vancomycin Trough Coronavirus (PCR) 11/24/20 11/24/20 11/24/20 12:14 17:47 23:47 WBC RBC Hgb Hct RDW Plt Count Lymph % (Auto) [place] % (Auto) Lymph # (Auto) [place] # (Auto) Baso # (Auto) Seg Neutrophils % Seg Neuts % (Manual) Lymphocytes % (Manual) Nucleated RBC % Seg Neutrophils # Seg Neutrophils # Man Lymphocytes # (Manual) D-Dimer ABG pH 7.261 L POC ABG pCO2 59.7 H POC ABG pO2 75.7 L ABG pO2 ABG HCO3 ABG O2 Saturation ABG Base Excess ABG Hemoglobin ABG Oxyhemoglobin 92.5 L ABG Sodium ABG Potassium ABG Chloride 108.0 H ABG Glucose 150 H Oxyhemoglobin Carboxyhemoglobin Sodium Potassium Chloride Carbon Dioxide BUN Creatinine Glucose POC Glucose 223 H 179 H Hemoglobin A1c Lactic Acid Calcium Magnesium Ferritin Total Bilirubin AST ALT Alkaline Phosphatase Lactate Dehydrogenase Total Creatine Kinase C-Reactive Protein Total Protein Albumin Triglycerides Arterial Blood Glucose 150 H Arterial Blood Ionized Calcium Ur Specific [place] Urine WBC (Auto) Vancomycin Trough Coronavirus (PCR) 11/25/20 11/25/20 11/25/20 03:29 05:07 05:15 WBC 13.9 H RBC Hgb Hct RDW Plt Count Lymph % (Auto) [place] % (Auto) Lymph # (Auto) [place] # (Auto) Baso # (Auto) Seg Neutrophils % Seg Neuts % (Manual) 97.0 H Lymphocytes % (Manual) Nucleated RBC % Seg Neutrophils # Seg Neutrophils # Man 13.5 H Lymphocytes # (Manual) 0.0 L D-Dimer ABG pH 7.272 L POC ABG pCO2 69.0 H POC ABG pO2 132.9 H ABG pO2 ABG HCO3 ABG O2 Saturation ABG Base Excess ABG Hemoglobin ABG Oxyhemoglobin ABG Sodium ABG Potassium ABG Chloride ABG Glucose 174 H Oxyhemoglobin Carboxyhemoglobin Sodium Potassium Chloride Carbon Dioxide BUN Creatinine Glucose POC Glucose 168 H Hemoglobin A1c Lactic Acid Calcium Magnesium Ferritin Total Bilirubin AST ALT Alkaline Phosphatase Lactate Dehydrogenase Total Creatine Kinase C-Reactive Protein Total Protein Albumin Triglycerides Arterial Blood Glucose 174 H Arterial Blood Ionized Calcium Ur Specific [place] Urine WBC (Auto) Vancomycin Trough Coronavirus (PCR) 11/25/20 11/25/20 11/25/20 05:15 11:25 17:35 WBC RBC Hgb Hct RDW Plt Count Lymph % (Auto) [place] % (Auto) Lymph # (Auto) [place] # (Auto) Baso # (Auto) Seg Neutrophils % Seg Neuts % (Manual) Lymphocytes % (Manual) Nucleated RBC % Seg Neutrophils # Seg Neutrophils # Man Lymphocytes # (Manual) D-Dimer ABG pH POC ABG pCO2 POC ABG pO2 ABG pO2 ABG HCO3 ABG O2 Saturation ABG Base Excess ABG Hemoglobin ABG Oxyhemoglobin ABG Sodium ABG Potassium ABG Chloride ABG Glucose Oxyhemoglobin Carboxyhemoglobin Sodium Potassium Chloride Carbon Dioxide BUN 29 H Creatinine 0.5 L Glucose 161 H POC Glucose 224 H 228 H Hemoglobin A1c Lactic Acid Calcium 7.8 L Magnesium Ferritin Total Bilirubin AST 89 H ALT 129 H Alkaline Phosphatase Lactate Dehydrogenase Total Creatine Kinase C-Reactive Protein Total Protein 5.8 L Albumin 2.5 L Triglycerides Arterial Blood Glucose Arterial Blood Ionized Calcium Ur Specific [place] Urine WBC (Auto) Vancomycin Trough Coronavirus (PCR) 11/25/20 11/25/20 11/26/20 20:45 23:28 04:00 WBC RBC Hgb Hct RDW Plt Count Lymph % (Auto) [place] % (Auto) Lymph # (Auto) [place] # (Auto) Baso # (Auto) Seg Neutrophils % Seg Neuts % (Manual) Lymphocytes % (Manual) Nucleated RBC % Seg Neutrophils # Seg Neutrophils # Man Lymphocytes # (Manual) D-Dimer ABG pH POC ABG pCO2 POC ABG pO2 ABG pO2 ABG HCO3 ABG O2 Saturation ABG Base Excess ABG Hemoglobin ABG Oxyhemoglobin ABG Sodium ABG Potassium ABG Chloride ABG Glucose Oxyhemoglobin Carboxyhemoglobin Sodium Potassium Chloride Carbon Dioxide BUN Creatinine Glucose POC Glucose 177 H 243 H Hemoglobin A1c Lactic Acid Calcium Magnesium Ferritin 778.8 H Total Bilirubin AST ALT Alkaline Phosphatase Lactate Dehydrogenase Total Creatine Kinase C-Reactive Protein Total Protein Albumin Triglycerides Arterial Blood Glucose Arterial Blood Ionized Calcium Ur Specific [place] Urine WBC (Auto) Vancomycin Trough Coronavirus (PCR) 11/26/20 11/26/20 11/26/20 04:00 05:34 06:04 WBC RBC Hgb Hct RDW Plt Count Lymph % (Auto) [place] % (Auto) Lymph # (Auto) [place] # (Auto) Baso # (Auto) Seg Neutrophils % Seg Neuts % (Manual) Lymphocytes % (Manual) Nucleated RBC % Seg Neutrophils # Seg Neutrophils # Man Lymphocytes # (Manual) D-Dimer 926.11 H ABG pH POC ABG pCO2 POC ABG pO2 ABG pO2 ABG HCO3 ABG O2 Saturation ABG Base Excess ABG Hemoglobin ABG Oxyhemoglobin ABG Sodium ABG Potassium ABG Chloride ABG Glucose Oxyhemoglobin Carboxyhemoglobin Sodium Potassium Chloride Carbon Dioxide 39 H D BUN 30 H Creatinine 0.5 L Glucose 193 H POC Glucose 178 H Hemoglobin A1c Lactic Acid Calcium 7.7 L Magnesium Ferritin Total Bilirubin AST 65 H ALT 132 H Alkaline Phosphatase Lactate Dehydrogenase 288 H Total Creatine Kinase C-Reactive Protein 1.40 H Total Protein 5.7 L Albumin 2.4 L Triglycerides Arterial Blood Glucose Arterial Blood Ionized Calcium Ur Specific [place] Urine WBC (Auto) Vancomycin Trough Coronavirus (PCR) 11/26/20 11/26/20 11/26/20 06:04 08:47 11:20 WBC 12.4 H RBC Hgb Hct RDW Plt Count Lymph % (Auto) [place] % (Auto) Lymph # (Auto) [place] # (Auto) Baso # (Auto) Seg Neutrophils % Seg Neuts % (Manual) 98.0 H Lymphocytes % (Manual) 1.0 L Nucleated RBC % Seg Neutrophils # Seg Neutrophils # Man 12.2 H Lymphocytes # (Manual) 0.1 L D-Dimer ABG pH POC ABG pCO2 75.2 H POC ABG pO2 61.9 L ABG pO2 ABG HCO3 ABG O2 Saturation ABG Base Excess ABG Hemoglobin ABG Oxyhemoglobin 90.3 L ABG Sodium ABG Potassium ABG Chloride ABG Glucose 243 H Oxyhemoglobin Carboxyhemoglobin Sodium Potassium Chloride Carbon Dioxide BUN Creatinine Glucose POC Glucose 255 H Hemoglobin A1c Lactic Acid Calcium Magnesium Ferritin Total Bilirubin AST ALT Alkaline Phosphatase Lactate Dehydrogenase Total Creatine Kinase C-Reactive Protein Total Protein Albumin Triglycerides Arterial Blood Glucose 243 H Arterial Blood Ionized Calcium Ur Specific [place] Urine WBC (Auto) Vancomycin Trough Coronavirus (PCR) 11/26/20 11/26/20 11/26/20 16:20 17:15 23:41 WBC RBC Hgb Hct RDW Plt Count Lymph % (Auto) [place] % (Auto) Lymph # (Auto) [place] # (Auto) Baso # (Auto) Seg Neutrophils % Seg Neuts % (Manual) Lymphocytes % (Manual) Nucleated RBC % Seg Neutrophils # Seg Neutrophils # Man Lymphocytes # (Manual) D-Dimer ABG pH POC ABG pCO2 66.6 H POC ABG pO2 78.1 L ABG pO2 ABG HCO3 ABG O2 Saturation ABG Base Excess ABG Hemoglobin ABG Oxyhemoglobin ABG Sodium ABG Potassium ABG Chloride ABG Glucose 244 H Oxyhemoglobin Carboxyhemoglobin Sodium Potassium Chloride Carbon Dioxide BUN Creatinine Glucose POC Glucose 219 H 210 H Hemoglobin A1c Lactic Acid Calcium Magnesium Ferritin Total Bilirubin AST ALT Alkaline Phosphatase Lactate Dehydrogenase Total Creatine Kinase C-Reactive Protein Total Protein Albumin Triglycerides Arterial Blood Glucose 244 H Arterial Blood Ionized Calcium Ur Specific [place] Urine WBC (Auto) Vancomycin Trough Coronavirus (PCR) 11/27/20 11/27/20 11/27/20 04:46 05:38 06:25 WBC 13.8 H RBC Hgb Hct RDW Plt Count Lymph % (Auto) 2.0 L [place] % (Auto) Lymph # (Auto) 0.3 L [place] # (Auto) Baso # (Auto) Seg Neutrophils % Seg Neuts % (Manual) 96.0 H Lymphocytes % (Manual) Nucleated RBC % Seg Neutrophils # 12.7 H Seg Neutrophils # Man 13.2 H Lymphocytes # (Manual) 0.0 L D-Dimer ABG pH POC ABG pCO2 63.0 H POC ABG pO2 53.6 L ABG pO2 ABG HCO3 ABG O2 Saturation ABG Base Excess ABG Hemoglobin ABG Oxyhemoglobin 87.8 L ABG Sodium 115.4 L ABG Potassium ABG Chloride ABG Glucose 219 H Oxyhemoglobin Carboxyhemoglobin Sodium Potassium Chloride Carbon Dioxide BUN Creatinine Glucose POC Glucose 227 H Hemoglobin A1c Lactic Acid Calcium Magnesium Ferritin Total Bilirubin AST ALT Alkaline Phosphatase Lactate Dehydrogenase Total Creatine Kinase C-Reactive Protein Total Protein Albumin Triglycerides Arterial Blood Glucose 219 H Arterial Blood Ionized Calcium Ur Specific [place] Urine WBC (Auto) Vancomycin Trough Coronavirus (PCR) 11/27/20 11/27/20 11/27/20 06:25 18:05 23:29 WBC RBC Hgb Hct RDW Plt Count Lymph % (Auto) [place] % (Auto) Lymph # (Auto) [place] # (Auto) Baso # (Auto) Seg Neutrophils % Seg Neuts % (Manual) Lymphocytes % (Manual) Nucleated RBC % Seg Neutrophils # Seg Neutrophils # Man Lymphocytes # (Manual) D-Dimer ABG pH POC ABG pCO2 POC ABG pO2 ABG pO2 ABG HCO3 ABG O2 Saturation ABG Base Excess ABG Hemoglobin ABG Oxyhemoglobin ABG Sodium ABG Potassium ABG Chloride ABG Glucose Oxyhemoglobin Carboxyhemoglobin Sodium Potassium Chloride Carbon Dioxide 38 H BUN 34 H Creatinine 0.4 L Glucose 243 H POC Glucose 329 H 227 H Hemoglobin A1c Lactic Acid Calcium 7.9 L Magnesium Ferritin Total Bilirubin AST 50 H ALT 110 H Alkaline Phosphatase Lactate Dehydrogenase Total Creatine Kinase C-Reactive Protein Total Protein 6.1 L Albumin 2.4 L Triglycerides Arterial Blood Glucose Arterial Blood Ionized Calcium Ur Specific [place] Urine WBC (Auto) Vancomycin Trough Coronavirus (PCR) 11/28/20 11/28/20 11/28/20 03:45 03:45 03:46 WBC 12.2 H RBC Hgb Hct RDW Plt Count Lymph % (Auto) [place] % (Auto) Lymph # (Auto) [place] # (Auto) Baso # (Auto) Seg Neutrophils % Seg Neuts % (Manual) 93.0 H Lymphocytes % (Manual) 2.0 L Nucleated RBC % Seg Neutrophils # Seg Neutrophils # Man 11.3 H Lymphocytes # (Manual) 0.2 L D-Dimer ABG pH POC ABG pCO2 68.4 H POC ABG pO2 55.4 L ABG pO2 ABG HCO3 ABG O2 Saturation ABG Base Excess ABG Hemoglobin ABG Oxyhemoglobin ABG Sodium ABG Potassium ABG Chloride ABG Glucose 197 H Oxyhemoglobin Carboxyhemoglobin Sodium Potassium Chloride Carbon Dioxide 36 H BUN 37 H Creatinine 0.4 L Glucose 194 H POC Glucose Hemoglobin A1c Lactic Acid Calcium 8.1 L Magnesium Ferritin Total Bilirubin AST ALT 86 H Alkaline Phosphatase Lactate Dehydrogenase Total Creatine Kinase C-Reactive Protein Total Protein 6.0 L Albumin 2.3 L Triglycerides Arterial Blood Glucose 197 H Arterial Blood Ionized Calcium Ur Specific [place] Urine WBC (Auto) Vancomycin Trough Coronavirus (PCR) 11/28/20 11/28/20 11/29/20 05:24 12:21 04:41 WBC RBC Hgb Hct RDW Plt Count Lymph % (Auto) [place] % (Auto) Lymph # (Auto) [place] # (Auto) Baso # (Auto) Seg Neutrophils % Seg Neuts % (Manual) Lymphocytes % (Manual) Nucleated RBC % Seg Neutrophils # Seg Neutrophils # Man Lymphocytes # (Manual) D-Dimer ABG pH POC ABG pCO2 55.1 H POC ABG pO2 53.6 L ABG pO2 ABG HCO3 ABG O2 Saturation ABG Base Excess ABG Hemoglobin ABG Oxyhemoglobin 87.1 L ABG Sodium 131.2 L ABG Potassium ABG Chloride ABG Glucose 164 H Oxyhemoglobin Carboxyhemoglobin Sodium Potassium Chloride Carbon Dioxide BUN Creatinine Glucose POC Glucose 173 H 126 H Hemoglobin A1c Lactic Acid Calcium Magnesium Ferritin Total Bilirubin AST ALT Alkaline Phosphatase Lactate Dehydrogenase Total Creatine Kinase C-Reactive Protein Total Protein Albumin Triglycerides Arterial Blood Glucose 164 H Arterial Blood Ionized Calcium 4.4 L Ur Specific [place] Urine WBC (Auto) Vancomycin Trough Coronavirus (PCR) 11/29/20 11/29/20 11/29/20 05:29 12:41 13:28 WBC RBC Hgb Hct RDW Plt Count Lymph % (Auto) [place] % (Auto) Lymph # (Auto) [place] # (Auto) Baso # (Auto) Seg Neutrophils % Seg Neuts % (Manual) Lymphocytes % (Manual) Nucleated RBC % Seg Neutrophils # Seg Neutrophils # Man Lymphocytes # (Manual) D-Dimer ABG pH POC ABG pCO2 POC ABG pO2 ABG pO2 ABG HCO3 ABG O2 Saturation ABG Base Excess ABG Hemoglobin ABG Oxyhemoglobin ABG Sodium ABG Potassium ABG Chloride ABG Glucose Oxyhemoglobin Carboxyhemoglobin Sodium Potassium Chloride Carbon Dioxide 40 H BUN 32 H Creatinine 0.4 L Glucose 274 H POC Glucose 173 H 257 H Hemoglobin A1c Lactic Acid Calcium 7.2 L Magnesium Ferritin Total Bilirubin AST 57 H ALT 102 H Alkaline Phosphatase Lactate Dehydrogenase Total Creatine Kinase C-Reactive Protein Total Protein 5.7 L Albumin 2.1 L Triglycerides Arterial Blood Glucose Arterial Blood Ionized Calcium Ur Specific [place] Urine WBC (Auto) Vancomycin Trough Coronavirus (PCR) 11/29/20 11/29/20 11/29/20 15:40 17:36 21:26 WBC RBC Hgb Hct RDW Plt Count Lymph % (Auto) [place] % (Auto) Lymph # (Auto) [place] # (Auto) Baso # (Auto) Seg Neutrophils % Seg Neuts % (Manual) Lymphocytes % (Manual) Nucleated RBC % Seg Neutrophils # Seg Neutrophils # Man Lymphocytes # (Manual) D-Dimer ABG pH POC ABG pCO2 POC ABG pO2 ABG pO2 ABG HCO3 ABG O2 Saturation ABG Base Excess ABG Hemoglobin ABG Oxyhemoglobin ABG Sodium ABG Potassium ABG Chloride ABG Glucose Oxyhemoglobin Carboxyhemoglobin Sodium Potassium Chloride Carbon Dioxide BUN Creatinine Glucose POC Glucose 240 H 244 H Hemoglobin A1c Lactic Acid Calcium Magnesium Ferritin Total Bilirubin AST ALT Alkaline Phosphatase Lactate Dehydrogenase Total Creatine Kinase C-Reactive Protein Total Protein Albumin Triglycerides Arterial Blood Glucose Arterial Blood Ionized Calcium Ur Specific [place] Urine WBC (Auto) Vancomycin Trough 4.0 L Coronavirus (PCR) 11/29/20 11/30/20 11/30/20 23:26 03:30 03:30 WBC RBC Hgb Hct RDW Plt Count Lymph % (Auto) [place] % (Auto) Lymph # (Auto) [place] # (Auto) Baso # (Auto) Seg Neutrophils % Seg Neuts % (Manual) 97.0 H Lymphocytes % (Manual) 1.0 L Nucleated RBC % Seg Neutrophils # Seg Neutrophils # Man 9.9 H Lymphocytes # (Manual) 0.1 L D-Dimer ABG pH POC ABG pCO2 POC ABG pO2 ABG pO2 ABG HCO3 ABG O2 Saturation ABG Base Excess ABG Hemoglobin ABG Oxyhemoglobin ABG Sodium ABG Potassium ABG Chloride ABG Glucose Oxyhemoglobin Carboxyhemoglobin Sodium Potassium Chloride Carbon Dioxide 38 H BUN 34 H Creatinine 0.4 L Glucose 305 H POC Glucose 283 H Hemoglobin A1c Lactic Acid Calcium 7.6 L Magnesium Ferritin Total Bilirubin AST ALT 89 H Alkaline Phosphatase Lactate Dehydrogenase Total Creatine Kinase C-Reactive Protein Total Protein 6.0 L Albumin 2.3 L Triglycerides Arterial Blood Glucose Arterial Blood Ionized Calcium Ur Specific [place] Urine WBC (Auto) Vancomycin Trough Coronavirus (PCR) 11/30/20 11/30/20 11/30/20 03:57 05:22 12:05 WBC RBC Hgb Hct RDW Plt Count Lymph % (Auto) [place] % (Auto) Lymph # (Auto) [place] # (Auto) Baso # (Auto) Seg Neutrophils % Seg Neuts % (Manual) Lymphocytes % (Manual) Nucleated RBC % Seg Neutrophils # Seg Neutrophils # Man Lymphocytes # (Manual) D-Dimer ABG pH POC ABG pCO2 60.8 H POC ABG pO2 51.1 L ABG pO2 ABG HCO3 ABG O2 Saturation ABG Base Excess ABG Hemoglobin ABG Oxyhemoglobin 84.6 L ABG Sodium ABG Potassium ABG Chloride ABG Glucose 315 H Oxyhemoglobin Carboxyhemoglobin Sodium Potassium Chloride Carbon Dioxide BUN Creatinine Glucose POC Glucose 295 H 413 H Hemoglobin A1c Lactic Acid Calcium Magnesium Ferritin Total Bilirubin AST ALT Alkaline Phosphatase Lactate Dehydrogenase Total Creatine Kinase C-Reactive Protein Total Protein Albumin Triglycerides Arterial Blood Glucose 315 H Arterial Blood Ionized Calcium 4.5 L Ur Specific [place] Urine WBC (Auto) Vancomycin Trough Coronavirus (PCR) 11/30/20 11/30/20 12/01/20 17:24 23:25 02:14 WBC RBC Hgb Hct RDW Plt Count Lymph % (Auto) [place] % (Auto) Lymph # (Auto) [place] # (Auto) Baso # (Auto) Seg Neutrophils % Seg Neuts % (Manual) Lymphocytes % (Manual) Nucleated RBC % Seg Neutrophils # Seg Neutrophils # Man Lymphocytes # (Manual) D-Dimer ABG pH 7.278 L POC ABG pCO2 78.1 H POC ABG pO2 79.5 L ABG pO2 ABG HCO3 ABG O2 Saturation ABG Base Excess ABG Hemoglobin 11.6 L ABG Oxyhemoglobin ABG Sodium 134.5 L ABG Potassium 4.6 H ABG Chloride ABG Glucose 286 H Oxyhemoglobin Carboxyhemoglobin Sodium Potassium Chloride Carbon Dioxide BUN Creatinine Glucose POC Glucose 305 H 302 H Hemoglobin A1c Lactic Acid Calcium Magnesium Ferritin Total Bilirubin AST ALT Alkaline Phosphatase Lactate Dehydrogenase Total Creatine Kinase C-Reactive Protein Total Protein Albumin Triglycerides Arterial Blood Glucose 286 H Arterial Blood Ionized Calcium Ur Specific [place] Urine WBC (Auto) Vancomycin Trough Coronavirus (PCR) 12/01/20 12/01/20 12/01/20 03:35 03:35 05:22 WBC 13.4 H RBC 3.54 L Hgb 10.4 L Hct 31.8 L RDW Plt Count Lymph % (Auto) George % (Auto) Lymph # (Auto) George # (Auto) Baso # (Auto) Seg Neutrophils % Seg Neuts % (Manual) 95.0 H Lymphocytes % (Manual) 3.0 L Nucleated RBC % Seg Neutrophils # Seg Neutrophils # Man 12.7 H Lymphocytes # (Manual) 0.4 L D-Dimer ABG pH POC ABG pCO2 POC ABG pO2 ABG pO2 ABG HCO3 ABG O2 Saturation ABG Base Excess ABG Hemoglobin ABG Oxyhemoglobin ABG Sodium ABG Potassium ABG Chloride ABG Glucose Oxyhemoglobin Carboxyhemoglobin Sodium Potassium Chloride Carbon Dioxide 35 H BUN 34 H Creatinine 0.5 L Glucose 279 H POC Glucose 259 H Hemoglobin A1c Lactic Acid Calcium 7.6 L Magnesium Ferritin Total Bilirubin AST ALT 63 H Alkaline Phosphatase Lactate Dehydrogenase Total Creatine Kinase C-Reactive Protein Total Protein 4.8 L Albumin 2.1 L Triglycerides Arterial Blood Glucose Arterial Blood Ionized Calcium Ur Specific [place] Urine WBC (Auto) Vancomycin Trough Coronavirus (PCR) 12/01/20 12/01/20 12/01/20 12:05 17:40 23:46 WBC RBC Hgb Hct RDW Plt Count Lymph % (Auto) [place] % (Auto) Lymph # (Auto) George # (Auto) Baso # (Auto) Seg Neutrophils % Seg Neuts % (Manual) Lymphocytes % (Manual) Nucleated RBC % Seg Neutrophils # Seg Neutrophils # Man Lymphocytes # (Manual) D-Dimer ABG pH POC ABG pCO2 POC ABG pO2 ABG pO2 ABG HCO3 ABG O2 Saturation ABG Base Excess ABG Hemoglobin ABG Oxyhemoglobin ABG Sodium ABG Potassium ABG Chloride ABG Glucose Oxyhemoglobin Carboxyhemoglobin Sodium Potassium Chloride Carbon Dioxide BUN Creatinine Glucose POC Glucose 197 H 244 H 284 H Hemoglobin A1c Lactic Acid Calcium Magnesium Ferritin Total Bilirubin AST ALT Alkaline Phosphatase Lactate Dehydrogenase Total Creatine Kinase C-Reactive Protein Total Protein Albumin Triglycerides Arterial Blood Glucose Arterial Blood Ionized Calcium Ur Specific [place] Urine WBC (Auto) Vancomycin Trough Coronavirus (PCR) 12/02/20 12/02/20 12/02/20 02:14 03:03 04:11 WBC 16.5 H RBC 3.55 L Hgb 10.5 L Hct 31.9 L RDW Plt Count Lymph % (Auto) [place] % (Auto) Lymph # (Auto) George # (Auto) Baso # (Auto) Seg Neutrophils % Seg Neuts % (Manual) 90.0 H Lymphocytes % (Manual) 3.0 L Nucleated RBC % Seg Neutrophils # Seg Neutrophils # Man 14.9 H Lymphocytes # (Manual) 0.5 L D-Dimer ABG pH POC ABG pCO2 74.8 H POC ABG pO2 58.9 L ABG pO2 ABG HCO3 ABG O2 Saturation ABG Base Excess ABG Hemoglobin 11.5 L ABG Oxyhemoglobin ABG Sodium ABG Potassium ABG Chloride ABG Glucose 264 H Oxyhemoglobin Carboxyhemoglobin Sodium Potassium Chloride Carbon Dioxide 37 H BUN 30 H Creatinine 0.4 L Glucose 245 H POC Glucose Hemoglobin A1c Lactic Acid Calcium 7.5 L Magnesium Ferritin Total Bilirubin AST ALT Alkaline Phosphatase Lactate Dehydrogenase Total Creatine Kinase C-Reactive Protein Total Protein 5.2 L Albumin 2.2 L Triglycerides Arterial Blood Glucose 264 H Arterial Blood Ionized Calcium 4.5 L Ur Specific [place] Urine WBC (Auto) Vancomycin Trough Coronavirus (PCR) 12/02/20 12/02/20 12/02/20 05:19 11:46 17:52 WBC RBC Hgb Hct RDW Plt Count Lymph % (Auto) [place] % (Auto) Lymph # (Auto) [place] # (Auto) Baso # (Auto) Seg Neutrophils % Seg Neuts % (Manual) Lymphocytes % (Manual) Nucleated RBC % Seg Neutrophils # Seg Neutrophils # Man Lymphocytes # (Manual) D-Dimer ABG pH POC ABG pCO2 POC ABG pO2 ABG pO2 ABG HCO3 ABG O2 Saturation ABG Base Excess ABG Hemoglobin ABG Oxyhemoglobin ABG Sodium ABG Potassium ABG Chloride ABG Glucose Oxyhemoglobin Carboxyhemoglobin Sodium Potassium Chloride Carbon Dioxide BUN Creatinine Glucose POC Glucose 238 H 236 H 233 H Hemoglobin A1c Lactic Acid Calcium Magnesium Ferritin Total Bilirubin AST ALT Alkaline Phosphatase Lactate Dehydrogenase Total Creatine Kinase C-Reactive Protein Total Protein Albumin Triglycerides Arterial Blood Glucose Arterial Blood Ionized Calcium Ur Specific [place] Urine WBC (Auto) Vancomycin Trough Coronavirus (PCR) 12/02/20 12/03/20 12/03/20 23:23 03:21 04:35 WBC RBC Hgb Hct RDW Plt Count 112 L Lymph % (Auto) [place] % (Auto) Lymph # (Auto) [place] # (Auto) Baso # (Auto) Seg Neutrophils % Seg Neuts % (Manual) 93.0 H Lymphocytes % (Manual) 4.0 L Nucleated RBC % Seg Neutrophils # Seg Neutrophils # Man 9.1 H Lymphocytes # (Manual) 0.4 L D-Dimer ABG pH 7.299 L POC ABG pCO2 82.1 H POC ABG pO2 62.4 L ABG pO2 ABG HCO3 ABG O2 Saturation ABG Base Excess ABG Hemoglobin 11.5 L ABG Oxyhemoglobin 89.6 L ABG Sodium 134.3 L ABG Potassium ABG Chloride 95.0 L ABG Glucose 203 H Oxyhemoglobin Carboxyhemoglobin Sodium Potassium Chloride Carbon Dioxide BUN Creatinine Glucose POC Glucose 213 H Hemoglobin A1c Lactic Acid Calcium Magnesium Ferritin Total Bilirubin AST ALT Alkaline Phosphatase Lactate Dehydrogenase Total Creatine Kinase C-Reactive Protein Total Protein Albumin Triglycerides Arterial Blood Glucose 203 H Arterial Blood Ionized Calcium 4.5 L Ur Specific [place] Urine WBC (Auto) Vancomycin Trough Coronavirus (PCR) 12/03/20 12/03/20 12/03/20 04:35 05:42 11:28 WBC RBC Hgb Hct RDW Plt Count Lymph % (Auto) [place] % (Auto) Lymph # (Auto) [place] # (Auto) Baso # (Auto) Seg Neutrophils % Seg Neuts % (Manual) Lymphocytes % (Manual) Nucleated RBC % Seg Neutrophils # Seg Neutrophils # Man Lymphocytes # (Manual) D-Dimer ABG pH POC ABG pCO2 POC ABG pO2 ABG pO2 ABG HCO3 ABG O2 Saturation ABG Base Excess ABG Hemoglobin ABG Oxyhemoglobin ABG Sodium ABG Potassium ABG Chloride ABG Glucose Oxyhemoglobin Carboxyhemoglobin Sodium Potassium Chloride 97.8 L Carbon Dioxide 43 H* BUN 25 H Creatinine 0.3 L Glucose 214 H POC Glucose 193 H 211 H Hemoglobin A1c Lactic Acid Calcium 7.7 L Magnesium Ferritin Total Bilirubin AST ALT 63 H Alkaline Phosphatase 132 H Lactate Dehydrogenase Total Creatine Kinase C-Reactive Protein Total Protein 5.1 L Albumin 2.4 L Triglycerides Arterial Blood Glucose Arterial Blood Ionized Calcium Ur Specific [place] Urine WBC (Auto) Vancomycin Trough Coronavirus (PCR) 12/03/20 12/03/20 12/04/20 17:45 23:57 00:11 WBC RBC Hgb Hct RDW Plt Count Lymph % (Auto) [place] % (Auto) Lymph # (Auto) [place] # (Auto) Baso # (Auto) Seg Neutrophils % Seg Neuts % (Manual) Lymphocytes % (Manual) Nucleated RBC % Seg Neutrophils # Seg Neutrophils # Man Lymphocytes # (Manual) D-Dimer ABG pH POC ABG pCO2 POC ABG pO2 ABG pO2 ABG HCO3 ABG O2 Saturation ABG Base Excess ABG Hemoglobin ABG Oxyhemoglobin ABG Sodium ABG Potassium ABG Chloride ABG Glucose Oxyhemoglobin Carboxyhemoglobin Sodium Potassium Chloride Carbon Dioxide BUN Creatinine Glucose POC Glucose 231 H 240 H 239 H Hemoglobin A1c Lactic Acid Calcium Magnesium Ferritin Total Bilirubin AST ALT Alkaline Phosphatase Lactate Dehydrogenase Total Creatine Kinase C-Reactive Protein Total Protein Albumin Triglycerides Arterial Blood Glucose Arterial Blood Ionized Calcium Ur Specific [place] Urine WBC (Auto) Vancomycin Trough Coronavirus (PCR) 12/04/20 12/04/20 12/04/20 04:00 05:20 05:34 WBC RBC Hgb Hct RDW Plt Count Lymph % (Auto) [place] % (Auto) Lymph # (Auto) [place] # (Auto) Baso # (Auto) Seg Neutrophils % Seg Neuts % (Manual) Lymphocytes % (Manual) Nucleated RBC % Seg Neutrophils # Seg Neutrophils # Man Lymphocytes # (Manual) D-Dimer ABG pH POC ABG pCO2 84.4 H POC ABG pO2 68.0 L ABG pO2 ABG HCO3 ABG O2 Saturation ABG Base Excess ABG Hemoglobin 11.6 L ABG Oxyhemoglobin ABG Sodium 130.9 L ABG Potassium ABG Chloride 90.0 L ABG Glucose 244 H Oxyhemoglobin Carboxyhemoglobin Sodium Potassium Chloride Carbon Dioxide BUN Creatinine Glucose POC Glucose 241 H 213 H Hemoglobin A1c Lactic Acid Calcium Magnesium Ferritin Total Bilirubin AST ALT Alkaline Phosphatase Lactate Dehydrogenase Total Creatine Kinase C-Reactive Protein Total Protein Albumin Triglycerides Arterial Blood Glucose 244 H Arterial Blood Ionized Calcium 4.4 L Ur Specific [place] Urine WBC (Auto) Vancomycin Trough Coronavirus (PCR) 12/04/20 12/04/20 12/04/20 11:36 16:53 23:32 WBC RBC Hgb Hct RDW Plt Count Lymph % (Auto) [place] % (Auto) Lymph # (Auto) [place] # (Auto) Baso # (Auto) Seg Neutrophils % Seg Neuts % (Manual) Lymphocytes % (Manual) Nucleated RBC % Seg Neutrophils # Seg Neutrophils # Man Lymphocytes # (Manual) D-Dimer ABG pH POC ABG pCO2 POC ABG pO2 ABG pO2 ABG HCO3 ABG O2 Saturation ABG Base Excess ABG Hemoglobin ABG Oxyhemoglobin ABG Sodium ABG Potassium ABG Chloride ABG Glucose Oxyhemoglobin Carboxyhemoglobin Sodium Potassium Chloride Carbon Dioxide BUN Creatinine Glucose POC Glucose 196 H 127 H 230 H Hemoglobin A1c Lactic Acid Calcium Magnesium Ferritin Total Bilirubin AST ALT Alkaline Phosphatase Lactate Dehydrogenase Total Creatine Kinase C-Reactive Protein Total Protein Albumin Triglycerides Arterial Blood Glucose Arterial Blood Ionized Calcium Ur Specific [place] Urine WBC (Auto) Vancomycin Trough Coronavirus (PCR) 12/04/20 12/05/20 12/05/20 Unknown 04:16 05:21 WBC RBC Hgb Hct RDW Plt Count Lymph % (Auto) [place] % (Auto) Lymph # (Auto) [place] # (Auto) Baso # (Auto) Seg Neutrophils % Seg Neuts % (Manual) Lymphocytes % (Manual) Nucleated RBC % Seg Neutrophils # Seg Neutrophils # Man Lymphocytes # (Manual) D-Dimer ABG pH POC ABG pCO2 86.7 H POC ABG pO2 58.0 L ABG pO2 ABG HCO3 ABG O2 Saturation ABG Base Excess ABG Hemoglobin 11.6 L ABG Oxyhemoglobin 89 L ABG Sodium 130.1 L ABG Potassium 4.9 H ABG Chloride 89.0 L ABG Glucose 254 H Oxyhemoglobin Carboxyhemoglobin Sodium 136 L Potassium Chloride 90.0 L Carbon Dioxide 46 H* BUN 24 H Creatinine 0.3 L Glucose 226 H POC Glucose 213 H Hemoglobin A1c Lactic Acid Calcium 7.6 L Magnesium Ferritin Total Bilirubin AST 46 H ALT 78 H Alkaline Phosphatase 172 H Lactate Dehydrogenase Total Creatine Kinase C-Reactive Protein Total Protein 6.0 L Albumin 2.8 L Triglycerides 156 H Arterial Blood Glucose 254 H Arterial Blood Ionized Calcium 4.4 L Ur Specific [place] Urine WBC (Auto) Vancomycin Trough Coronavirus (PCR) 12/05/20 12/05/20 12/05/20 11:22 17:26 23:38 WBC RBC Hgb Hct RDW Plt Count Lymph % (Auto) [place] % (Auto) Lymph # (Auto) [place] # (Auto) Baso # (Auto) Seg Neutrophils % Seg Neuts % (Manual) Lymphocytes % (Manual) Nucleated RBC % Seg Neutrophils # Seg Neutrophils # Man Lymphocytes # (Manual) D-Dimer ABG pH POC ABG pCO2 POC ABG pO2 ABG pO2 ABG HCO3 ABG O2 Saturation ABG Base Excess ABG Hemoglobin ABG Oxyhemoglobin ABG Sodium ABG Potassium ABG Chloride ABG Glucose Oxyhemoglobin Carboxyhemoglobin Sodium Potassium Chloride Carbon Dioxide BUN Creatinine Glucose POC Glucose 212 H 157 H 204 H Hemoglobin A1c Lactic Acid Calcium Magnesium Ferritin Total Bilirubin AST ALT Alkaline Phosphatase Lactate Dehydrogenase Total Creatine Kinase C-Reactive Protein Total Protein Albumin Triglycerides Arterial Blood Glucose Arterial Blood Ionized Calcium Ur Specific [place] Urine WBC (Auto) Vancomycin Trough Coronavirus (PCR) 12/06/20 12/06/20 12/06/20 04:31 04:31 05:12 WBC 17.0 H RBC 3.63 L Hgb 10.8 L D Hct 32.6 L D RDW Plt Count Lymph % (Auto) [place] % (Auto) Lymph # (Auto) [place] # (Auto) Baso # (Auto) Seg Neutrophils % Seg Neuts % (Manual) Lymphocytes % (Manual) Nucleated RBC % Seg Neutrophils # Seg Neutrophils # Man Lymphocytes # (Manual) D-Dimer ABG pH POC ABG pCO2 85.9 H POC ABG pO2 57.6 L ABG pO2 ABG HCO3 ABG O2 Saturation ABG Base Excess ABG Hemoglobin ABG Oxyhemoglobin ABG Sodium 131.2 L ABG Potassium 4.8 H ABG Chloride 86.0 L ABG Glucose 200 H Oxyhemoglobin Carboxyhemoglobin Sodium 134 L Potassium 5.1 H Chloride 88.4 L Carbon Dioxide 47 H* BUN 23 H Creatinine 0.3 L Glucose 206 H POC Glucose Hemoglobin A1c Lactic Acid Calcium 8.3 L Magnesium Ferritin Total Bilirubin AST 48 H ALT 91 H Alkaline Phosphatase 140 H Lactate Dehydrogenase Total Creatine Kinase C-Reactive Protein Total Protein 5.7 L Albumin 2.6 L Triglycerides Arterial Blood Glucose 200 H Arterial Blood Ionized Calcium 4.4 L Ur Specific [place] Urine WBC (Auto) Vancomycin Trough Coronavirus (PCR) 12/06/20 12/06/20 12/06/20 05:24 12:18 16:45 WBC RBC Hgb Hct RDW Plt Count Lymph % (Auto) [place] % (Auto) Lymph # (Auto) [place] # (Auto) Baso # (Auto) Seg Neutrophils % Seg Neuts % (Manual) Lymphocytes % (Manual) Nucleated RBC % Seg Neutrophils # Seg Neutrophils # Man Lymphocytes # (Manual) D-Dimer ABG pH POC ABG pCO2 POC ABG pO2 ABG pO2 ABG HCO3 ABG O2 Saturation ABG Base Excess ABG Hemoglobin ABG Oxyhemoglobin ABG Sodium ABG Potassium ABG Chloride ABG Glucose Oxyhemoglobin Carboxyhemoglobin Sodium Potassium Chloride Carbon Dioxide BUN Creatinine Glucose POC Glucose 186 H 187 H 150 H Hemoglobin A1c Lactic Acid Calcium Magnesium Ferritin Total Bilirubin AST ALT Alkaline Phosphatase Lactate Dehydrogenase Total Creatine Kinase C-Reactive Protein Total Protein Albumin Triglycerides Arterial Blood Glucose Arterial Blood Ionized Calcium Ur Specific [place] Urine WBC (Auto) Vancomycin Trough Coronavirus (PCR) 12/06/20 12/07/20 12/07/20 23:43 05:20 05:21 WBC RBC Hgb Hct RDW Plt Count Lymph % (Auto) [place] % (Auto) Lymph # (Auto) [place] # (Auto) Baso # (Auto) Seg Neutrophils % Seg Neuts % (Manual) Lymphocytes % (Manual) Nucleated RBC % Seg Neutrophils # Seg Neutrophils # Man Lymphocytes # (Manual) D-Dimer ABG pH POC ABG pCO2 POC ABG pO2 ABG pO2 48.4 L ABG HCO3 50.8 H ABG O2 Saturation 86.2 L ABG Base Excess 22.4 H ABG Hemoglobin 11.0 L ABG Oxyhemoglobin ABG Sodium ABG Potassium ABG Chloride ABG Glucose Oxyhemoglobin 84.0 L Carboxyhemoglobin Sodium Potassium Chloride Carbon Dioxide BUN Creatinine Glucose POC Glucose 153 H 107 H Hemoglobin A1c Lactic Acid Calcium Magnesium Ferritin Total Bilirubin AST ALT Alkaline Phosphatase Lactate Dehydrogenase Total Creatine Kinase C-Reactive Protein Total Protein Albumin Triglycerides Arterial Blood Glucose Arterial Blood Ionized Calcium Ur Specific [place] Urine WBC (Auto) Vancomycin Trough Coronavirus (PCR) 12/07/20 12/07/20 12/07/20 13:20 14:28 17:35 WBC RBC Hgb Hct RDW Plt Count Lymph % (Auto) [place] % (Auto) Lymph # (Auto) [place] # (Auto) Baso # (Auto) Seg Neutrophils % Seg Neuts % (Manual) Lymphocytes % (Manual) Nucleated RBC % Seg Neutrophils # Seg Neutrophils # Man Lymphocytes # (Manual) D-Dimer ABG pH POC ABG pCO2 74.1 H POC ABG pO2 68.5 L ABG pO2 ABG HCO3 ABG O2 Saturation ABG Base Excess ABG Hemoglobin 10.7 L ABG Oxyhemoglobin 91.9 L ABG Sodium 132.2 L ABG Potassium 4.7 H ABG Chloride 88.0 L ABG Glucose 138 H Oxyhemoglobin Carboxyhemoglobin Sodium 134 L Potassium Chloride 87.4 L Carbon Dioxide 49 H* BUN Creatinine 0.2 L Glucose 132 H POC Glucose 176 H Hemoglobin A1c Lactic Acid Calcium 7.7 L Magnesium Ferritin Total Bilirubin AST ALT Alkaline Phosphatase Lactate Dehydrogenase Total Creatine Kinase C-Reactive Protein Total Protein Albumin Triglycerides Arterial Blood Glucose 138 H Arterial Blood Ionized Calcium 4.0 L Ur Specific [place] Urine WBC (Auto) Vancomycin Trough Coronavirus (PCR) 12/07/20 12/08/20 12/08/20 23:44 04:12 05:29 WBC RBC Hgb Hct RDW Plt Count Lymph % (Auto) [place] % (Auto) Lymph # (Auto) [place] # (Auto) Baso # (Auto) Seg Neutrophils % Seg Neuts % (Manual) Lymphocytes % (Manual) Nucleated RBC % Seg Neutrophils # Seg Neutrophils # Man Lymphocytes # (Manual) D-Dimer ABG pH POC ABG pCO2 POC ABG pO2 ABG pO2 69.7 L ABG HCO3 50.1 H ABG O2 Saturation ABG Base Excess 21.6 H ABG Hemoglobin 10.9 L ABG Oxyhemoglobin ABG Sodium ABG Potassium ABG Chloride ABG Glucose Oxyhemoglobin 93.2 L Carboxyhemoglobin Sodium Potassium Chloride Carbon Dioxide BUN Creatinine Glucose POC Glucose 143 H 143 H Hemoglobin A1c Lactic Acid Calcium Magnesium Ferritin Total Bilirubin AST ALT Alkaline Phosphatase Lactate Dehydrogenase Total Creatine Kinase C-Reactive Protein Total Protein Albumin Triglycerides Arterial Blood Glucose Arterial Blood Ionized Calcium Ur Specific [place] Urine WBC (Auto) Vancomycin Trough Coronavirus (PCR) 12/08/20 12/08/20 12/09/20 06:10 06:10 04:24 WBC 12.0 H RBC 3.18 L Hgb 9.5 L Hct 28.9 L RDW Plt Count Lymph % (Auto) [place] % (Auto) Lymph # (Auto) [place] # (Auto) Baso # (Auto) Seg Neutrophils % Seg Neuts % (Manual) 95.0 H Lymphocytes % (Manual) 3.0 L Nucleated RBC % Seg Neutrophils # Seg Neutrophils # Man 11.4 H Lymphocytes # (Manual) 0.4 L D-Dimer ABG pH POC ABG pCO2 76.2 H POC ABG pO2 52.8 L ABG pO2 ABG HCO3 ABG O2 Saturation ABG Base Excess ABG Hemoglobin 11.7 L ABG Oxyhemoglobin ABG Sodium 132.0 L ABG Potassium ABG Chloride 87.0 L ABG Glucose 118 H Oxyhemoglobin Carboxyhemoglobin Sodium 133 L Potassium Chloride 86.3 L Carbon Dioxide 53 H* BUN Creatinine 0.2 L Glucose 156 H POC Glucose Hemoglobin A1c Lactic Acid Calcium 7.6 L Magnesium Ferritin Total Bilirubin AST ALT Alkaline Phosphatase Lactate Dehydrogenase Total Creatine Kinase C-Reactive Protein Total Protein Albumin Triglycerides Arterial Blood Glucose 118 H Arterial Blood Ionized Calcium 4.2 L Ur Specific [place] Urine WBC (Auto) Vancomycin Trough Coronavirus (PCR) 12/09/20 12/09/20 12/09/20 05:44 06:40 06:40 WBC 13.5 H RBC 3.28 L Hgb 9.7 L Hct 29.9 L RDW Plt Count Lymph % (Auto) [place] % (Auto) Lymph # (Auto) [place] # (Auto) Baso # (Auto) Seg Neutrophils % Seg Neuts % (Manual) Lymphocytes % (Manual) Nucleated RBC % Seg Neutrophils # Seg Neutrophils # Man Lymphocytes # (Manual) D-Dimer ABG pH POC ABG pCO2 POC ABG pO2 ABG pO2 ABG HCO3 ABG O2 Saturation ABG Base Excess ABG Hemoglobin ABG Oxyhemoglobin ABG Sodium ABG Potassium ABG Chloride ABG Glucose Oxyhemoglobin Carboxyhemoglobin Sodium 135 L Potassium Chloride 89.5 L Carbon Dioxide 52 H* BUN Creatinine 0.3 L Glucose 114 H POC Glucose 117 H Hemoglobin A1c Lactic Acid Calcium 7.6 L Magnesium Ferritin Total Bilirubin AST ALT Alkaline Phosphatase Lactate Dehydrogenase Total Creatine Kinase C-Reactive Protein Total Protein Albumin Triglycerides Arterial Blood Glucose Arterial Blood Ionized Calcium Ur Specific [place] Urine WBC (Auto) Vancomycin Trough Coronavirus (PCR) 12/09/20 12/09/20 12/10/20 16:42 21:11 04:28 WBC RBC Hgb Hct RDW Plt Count Lymph % (Auto) [place] % (Auto) Lymph # (Auto) [place] # (Auto) Baso # (Auto) Seg Neutrophils % Seg Neuts % (Manual) Lymphocytes % (Manual) Nucleated RBC % Seg Neutrophils # Seg Neutrophils # Man Lymphocytes # (Manual) D-Dimer ABG pH POC ABG pCO2 72.5 H 69.4 H 76.9 H POC ABG pO2 50.4 L 80.6 L 60.2 L ABG pO2 ABG HCO3 ABG O2 Saturation ABG Base Excess ABG Hemoglobin 10.4 L 10.7 L 10 L ABG Oxyhemoglobin 84.3 L 89.7 L ABG Sodium 133.7 L 133.7 L 133.8 L ABG Potassium ABG Chloride 90.0 L 91.0 L 91.0 L ABG Glucose 116 H 96 H 57 L Oxyhemoglobin Carboxyhemoglobin 0.4 L Sodium Potassium Chloride Carbon Dioxide BUN Creatinine Glucose POC Glucose Hemoglobin A1c Lactic Acid Calcium Magnesium Ferritin Total Bilirubin AST ALT Alkaline Phosphatase Lactate Dehydrogenase Total Creatine Kinase C-Reactive Protein Total Protein Albumin Triglycerides Arterial Blood Glucose 116 H 96 H 57 L Arterial Blood Ionized Calcium 4.2 L 4.3 L 4.2 L Ur Specific [place] Urine WBC (Auto) Vancomycin Trough Coronavirus (PCR) 12/10/20 12/10/20 12/10/20 05:09 05:41 11:50 WBC RBC Hgb Hct RDW Plt Count Lymph % (Auto) [place] % (Auto) Lymph # (Auto) [place] # (Auto) Baso # (Auto) Seg Neutrophils % Seg Neuts % (Manual) Lymphocytes % (Manual) Nucleated RBC % Seg Neutrophils # Seg Neutrophils # Man Lymphocytes # (Manual) D-Dimer ABG pH POC ABG pCO2 POC ABG pO2 ABG pO2 ABG HCO3 ABG O2 Saturation ABG Base Excess ABG Hemoglobin ABG Oxyhemoglobin ABG Sodium ABG Potassium ABG Chloride ABG Glucose Oxyhemoglobin Carboxyhemoglobin Sodium Potassium Chloride Carbon Dioxide BUN Creatinine Glucose POC Glucose 41 L 138 H 106 H Hemoglobin A1c Lactic Acid Calcium Magnesium Ferritin Total Bilirubin AST ALT Alkaline Phosphatase Lactate Dehydrogenase Total Creatine Kinase C-Reactive Protein Total Protein Albumin Triglycerides Arterial Blood Glucose Arterial Blood Ionized Calcium Ur Specific [place] Urine WBC (Auto) Vancomycin Trough Coronavirus (PCR) 12/10/20 12/10/20 12/11/20 17:34 23:25 04:06 WBC RBC Hgb Hct RDW Plt Count Lymph % (Auto) [place] % (Auto) Lymph # (Auto) [place] # (Auto) Baso # (Auto) Seg Neutrophils % Seg Neuts % (Manual) Lymphocytes % (Manual) Nucleated RBC % Seg Neutrophils # Seg Neutrophils # Man Lymphocytes # (Manual) D-Dimer ABG pH POC ABG pCO2 71.0 H POC ABG pO2 56.8 L ABG pO2 ABG HCO3 ABG O2 Saturation ABG Base Excess ABG Hemoglobin 10.1 L ABG Oxyhemoglobin 88.5 L ABG Sodium 132.3 L ABG Potassium ABG Chloride 91.0 L ABG Glucose 168 H Oxyhemoglobin Carboxyhemoglobin Sodium Potassium Chloride Carbon Dioxide BUN Creatinine Glucose POC Glucose 121 H 167 H Hemoglobin A1c Lactic Acid Calcium Magnesium Ferritin Total Bilirubin AST ALT Alkaline Phosphatase Lactate Dehydrogenase Total Creatine Kinase C-Reactive Protein Total Protein Albumin Triglycerides Arterial Blood Glucose 168 H Arterial Blood Ionized Calcium 4.1 L Ur Specific [place] Urine WBC (Auto) Vancomycin Trough Coronavirus (PCR) 12/11/20 12/11/20 12/11/20 05:21 11:44 15:40 WBC RBC Hgb Hct RDW Plt Count Lymph % (Auto) [place] % (Auto) Lymph # (Auto) [place] # (Auto) Baso # (Auto) Seg Neutrophils % Seg Neuts % (Manual) Lymphocytes % (Manual) Nucleated RBC % Seg Neutrophils # Seg Neutrophils # Man Lymphocytes # (Manual) D-Dimer ABG pH 7.454 H POC ABG pCO2 58.6 H POC ABG pO2 50.7 L ABG pO2 ABG HCO3 ABG O2 Saturation ABG Base Excess ABG Hemoglobin 10.1 L ABG Oxyhemoglobin 86.2 L ABG Sodium 131.2 L ABG Potassium ABG Chloride 92.0 L ABG Glucose 197 H Oxyhemoglobin Carboxyhemoglobin Sodium Potassium Chloride Carbon Dioxide BUN Creatinine Glucose POC Glucose 149 H 202 H Hemoglobin A1c Lactic Acid Calcium Magnesium Ferritin Total Bilirubin AST ALT Alkaline Phosphatase Lactate Dehydrogenase Total Creatine Kinase C-Reactive Protein Total Protein Albumin Triglycerides Arterial Blood Glucose 197 H Arterial Blood Ionized Calcium 4.2 L Ur Specific [place] Urine WBC (Auto) Vancomycin Trough Coronavirus (PCR) 12/11/20 12/11/20 12/12/20 17:09 23:16 05:09 WBC RBC Hgb Hct RDW Plt Count Lymph % (Auto) [place] % (Auto) Lymph # (Auto) George # (Auto) Baso # (Auto) Seg Neutrophils % Seg Neuts % (Manual) Lymphocytes % (Manual) Nucleated RBC % Seg Neutrophils # Seg Neutrophils # Man Lymphocytes # (Manual) D-Dimer ABG pH POC ABG pCO2 63.1 H POC ABG pO2 62.6 L ABG pO2 ABG HCO3 ABG O2 Saturation ABG Base Excess ABG Hemoglobin 10.3 L ABG Oxyhemoglobin ABG Sodium 130.3 L ABG Potassium 4.6 H ABG Chloride 92.0 L ABG Glucose 215 H Oxyhemoglobin Carboxyhemoglobin Sodium Potassium Chloride Carbon Dioxide BUN Creatinine Glucose POC Glucose 181 H 192 H Hemoglobin A1c Lactic Acid Calcium Magnesium Ferritin Total Bilirubin AST ALT Alkaline Phosphatase Lactate Dehydrogenase Total Creatine Kinase C-Reactive Protein Total Protein Albumin Triglycerides Arterial Blood Glucose 215 H Arterial Blood Ionized Calcium 4.4 L Ur Specific [place] Urine WBC (Auto) Vancomycin Trough Coronavirus (PCR) 12/12/20 12/12/20 12/12/20 05:16 05:47 11:41 WBC RBC Hgb Hct RDW Plt Count Lymph % (Auto) [place] % (Auto) Lymph # (Auto) [place] # (Auto) Baso # (Auto) Seg Neutrophils % Seg Neuts % (Manual) Lymphocytes % (Manual) Nucleated RBC % Seg Neutrophils # Seg Neutrophils # Man Lymphocytes # (Manual) D-Dimer ABG pH POC ABG pCO2 POC ABG pO2 ABG pO2 ABG HCO3 ABG O2 Saturation ABG Base Excess ABG Hemoglobin ABG Oxyhemoglobin ABG Sodium ABG Potassium ABG Chloride ABG Glucose Oxyhemoglobin Carboxyhemoglobin Sodium Potassium Chloride Carbon Dioxide BUN Creatinine Glucose POC Glucose 208 H 218 H Hemoglobin A1c Lactic Acid Calcium Magnesium Ferritin Total Bilirubin AST ALT Alkaline Phosphatase Lactate Dehydrogenase Total Creatine Kinase C-Reactive Protein Total Protein Albumin Triglycerides 150 H Arterial Blood Glucose Arterial Blood Ionized Calcium Ur Specific [place] Urine WBC (Auto) Vancomycin Trough Coronavirus (PCR) 12/12/20 12/12/20 12/13/20 17:05 23:18 03:36 WBC RBC Hgb Hct RDW Plt Count Lymph % (Auto) [place] % (Auto) Lymph # (Auto) [place] # (Auto) Baso # (Auto) Seg Neutrophils % Seg Neuts % (Manual) Lymphocytes % (Manual) Nucleated RBC % Seg Neutrophils # Seg Neutrophils # Man Lymphocytes # (Manual) D-Dimer ABG pH POC ABG pCO2 61.5 H POC ABG pO2 77.6 L ABG pO2 ABG HCO3 ABG O2 Saturation ABG Base Excess ABG Hemoglobin 10.2 L ABG Oxyhemoglobin ABG Sodium 127.5 L ABG Potassium ABG Chloride 91.0 L ABG Glucose 232 H Oxyhemoglobin Carboxyhemoglobin Sodium Potassium Chloride Carbon Dioxide BUN Creatinine Glucose POC Glucose 187 H 176 H Hemoglobin A1c Lactic Acid Calcium Magnesium Ferritin Total Bilirubin AST ALT Alkaline Phosphatase Lactate Dehydrogenase Total Creatine Kinase C-Reactive Protein Total Protein Albumin Triglycerides Arterial Blood Glucose 232 H Arterial Blood Ionized Calcium 4.2 L Ur Specific [place] Urine WBC (Auto) Vancomycin Trough Coronavirus (PCR) 12/13/20 12/13/20 12/13/20 05:13 10:00 11:30 WBC RBC 3.50 L Hgb 10.5 L Hct 31.9 L RDW Plt Count Lymph % (Auto) [place] % (Auto) Lymph # (Auto) George # (Auto) Baso # (Auto) Seg Neutrophils % Seg Neuts % (Manual) 96.0 H Lymphocytes % (Manual) Nucleated RBC % Seg Neutrophils # Seg Neutrophils # Man 9.2 H Lymphocytes # (Manual) 0.0 L D-Dimer ABG pH POC ABG pCO2 POC ABG pO2 ABG pO2 ABG HCO3 ABG O2 Saturation ABG Base Excess ABG Hemoglobin ABG Oxyhemoglobin ABG Sodium ABG Potassium ABG Chloride ABG Glucose Oxyhemoglobin Carboxyhemoglobin Sodium Potassium Chloride Carbon Dioxide BUN Creatinine Glucose POC Glucose 204 H Hemoglobin A1c Lactic Acid Calcium Magnesium Ferritin Total Bilirubin AST ALT Alkaline Phosphatase Lactate Dehydrogenase Total Creatine Kinase C-Reactive Protein Total Protein Albumin Triglycerides Arterial Blood Glucose Arterial Blood Ionized Calcium Ur Specific [place] Urine WBC (Auto) Vancomycin Trough Coronavirus (PCR) Positive A 12/13/20 12/13/20 12/13/20 11:30 12:01 18:04 WBC RBC Hgb Hct RDW Plt Count Lymph % (Auto) George % (Auto) Lymph # (Auto) George # (Auto) Baso # (Auto) Seg Neutrophils % Seg Neuts % (Manual) Lymphocytes % (Manual) Nucleated RBC % Seg Neutrophils # Seg Neutrophils # Man Lymphocytes # (Manual) D-Dimer ABG pH POC ABG pCO2 POC ABG pO2 ABG pO2 ABG HCO3 ABG O2 Saturation ABG Base Excess ABG Hemoglobin ABG Oxyhemoglobin ABG Sodium ABG Potassium ABG Chloride ABG Glucose Oxyhemoglobin Carboxyhemoglobin Sodium 132 L Potassium Chloride 90.1 L Carbon Dioxide 41 H* D BUN Creatinine 0.2 L Glucose 249 H POC Glucose 224 H 172 H Hemoglobin A1c Lactic Acid Calcium 7.4 L Magnesium Ferritin Total Bilirubin AST ALT 61 H Alkaline Phosphatase Lactate Dehydrogenase Total Creatine Kinase C-Reactive Protein Total Protein 5.7 L Albumin 2.3 L Triglycerides Arterial Blood Glucose Arterial Blood Ionized Calcium Ur Specific [place] Urine WBC (Auto) Vancomycin Trough Coronavirus (PCR) 12/13/20 12/14/20 12/14/20 23:37 04:05 04:35 WBC RBC 3.37 L Hgb 10.1 L Hct 30.7 L RDW 15.4 H Plt Count Lymph % (Auto) [place] % (Auto) Lymph # (Auto) George # (Auto) Baso # (Auto) Seg Neutrophils % Seg Neuts % (Manual) 93.0 H Lymphocytes % (Manual) 3.0 L Nucleated RBC % Seg Neutrophils # Seg Neutrophils # Man 7.8 H Lymphocytes # (Manual) 0.3 L D-Dimer ABG pH POC ABG pCO2 72.2 H POC ABG pO2 61.5 L ABG pO2 ABG HCO3 ABG O2 Saturation ABG Base Excess ABG Hemoglobin ABG Oxyhemoglobin 89.9 L ABG Sodium 131.4 L ABG Potassium ABG Chloride 91.0 L ABG Glucose 205 H Oxyhemoglobin Carboxyhemoglobin Sodium Potassium Chloride Carbon Dioxide BUN Creatinine Glucose POC Glucose 200 H Hemoglobin A1c Lactic Acid Calcium Magnesium Ferritin Total Bilirubin AST ALT Alkaline Phosphatase Lactate Dehydrogenase Total Creatine Kinase C-Reactive Protein Total Protein Albumin Triglycerides Arterial Blood Glucose 205 H Arterial Blood Ionized Calcium 4.3 L Ur Specific [place] Urine WBC (Auto) Vancomycin Trough Coronavirus (PCR) 12/14/20 12/14/20 12/14/20 04:35 05:12 11:31 WBC RBC Hgb Hct RDW Plt Count Lymph % (Auto) [place] % (Auto) Lymph # (Auto) [place] # (Auto) Baso # (Auto) Seg Neutrophils % Seg Neuts % (Manual) Lymphocytes % (Manual) Nucleated RBC % Seg Neutrophils # Seg Neutrophils # Man Lymphocytes # (Manual) D-Dimer ABG pH POC ABG pCO2 POC ABG pO2 ABG pO2 ABG HCO3 ABG O2 Saturation ABG Base Excess ABG Hemoglobin ABG Oxyhemoglobin ABG Sodium ABG Potassium ABG Chloride ABG Glucose Oxyhemoglobin Carboxyhemoglobin Sodium 135 L Potassium Chloride 92.5 L Carbon Dioxide 38 H BUN Creatinine 0.2 L Glucose 184 H POC Glucose 176 H 212 H Hemoglobin A1c Lactic Acid Calcium 7.7 L Magnesium Ferritin Total Bilirubin AST ALT Alkaline Phosphatase Lactate Dehydrogenase Total Creatine Kinase C-Reactive Protein Total Protein Albumin Triglycerides Arterial Blood Glucose Arterial Blood Ionized Calcium Ur Specific [place] Urine WBC (Auto) Vancomycin Trough Coronavirus (PCR) 12/14/20 12/14/20 12/15/20 17:30 23:30 03:19 WBC RBC Hgb Hct RDW Plt Count Lymph % (Auto) [place] % (Auto) Lymph # (Auto) [place] # (Auto) Baso # (Auto) Seg Neutrophils % Seg Neuts % (Manual) Lymphocytes % (Manual) Nucleated RBC % Seg Neutrophils # Seg Neutrophils # Man Lymphocytes # (Manual) D-Dimer ABG pH POC ABG pCO2 62.0 H POC ABG pO2 66.0 L ABG pO2 ABG HCO3 ABG O2 Saturation ABG Base Excess ABG Hemoglobin 10.3 L ABG Oxyhemoglobin ABG Sodium 130.5 L ABG Potassium ABG Chloride 91.0 L ABG Glucose 166 H Oxyhemoglobin Carboxyhemoglobin Sodium Potassium Chloride Carbon Dioxide BUN Creatinine Glucose POC Glucose 222 H 176 H Hemoglobin A1c Lactic Acid Calcium Magnesium Ferritin Total Bilirubin AST ALT Alkaline Phosphatase Lactate Dehydrogenase Total Creatine Kinase C-Reactive Protein Total Protein Albumin Triglycerides Arterial Blood Glucose 166 H Arterial Blood Ionized Calcium 4.4 L Ur Specific [place] Urine WBC (Auto) Vancomycin Trough Coronavirus (PCR) 12/15/20 12/15/20 12/15/20 05:24 11:39 17:30 WBC RBC Hgb Hct RDW Plt Count Lymph % (Auto) [place] % (Auto) Lymph # (Auto) [place] # (Auto) Baso # (Auto) Seg Neutrophils % Seg Neuts % (Manual) Lymphocytes % (Manual) Nucleated RBC % Seg Neutrophils # Seg Neutrophils # Man Lymphocytes # (Manual) D-Dimer ABG pH POC ABG pCO2 POC ABG pO2 ABG pO2 ABG HCO3 ABG O2 Saturation ABG Base Excess ABG Hemoglobin ABG Oxyhemoglobin ABG Sodium ABG Potassium ABG Chloride ABG Glucose Oxyhemoglobin Carboxyhemoglobin Sodium Potassium Chloride Carbon Dioxide BUN Creatinine Glucose POC Glucose 160 H 140 H 246 H Hemoglobin A1c Lactic Acid Calcium Magnesium Ferritin Total Bilirubin AST ALT Alkaline Phosphatase Lactate Dehydrogenase Total Creatine Kinase C-Reactive Protein Total Protein Albumin Triglycerides Arterial Blood Glucose Arterial Blood Ionized Calcium Ur Specific [place] Urine WBC (Auto) Vancomycin Trough Coronavirus (PCR) 12/15/20 12/16/20 12/16/20 23:42 03:54 04:46 WBC RBC 3.48 L Hgb 10.6 L Hct 31.5 L RDW 15.8 H Plt Count Lymph % (Auto) [place] % (Auto) Lymph # (Auto) [place] # (Auto) Baso # (Auto) Seg Neutrophils % Seg Neuts % (Manual) Lymphocytes % (Manual) Nucleated RBC % Seg Neutrophils # Seg Neutrophils # Man Lymphocytes # (Manual) D-Dimer ABG pH POC ABG pCO2 63.6 H POC ABG pO2 55.0 L ABG pO2 ABG HCO3 ABG O2 Saturation ABG Base Excess ABG Hemoglobin 11.1 L ABG Oxyhemoglobin 87.3 L ABG Sodium 130.7 L ABG Potassium ABG Chloride 89.0 L ABG Glucose 211 H Oxyhemoglobin Carboxyhemoglobin Sodium Potassium Chloride Carbon Dioxide BUN Creatinine Glucose POC Glucose 139 H Hemoglobin A1c Lactic Acid Calcium Magnesium Ferritin Total Bilirubin AST ALT Alkaline Phosphatase Lactate Dehydrogenase Total Creatine Kinase C-Reactive Protein Total Protein Albumin Triglycerides Arterial Blood Glucose 211 H Arterial Blood Ionized Calcium 4.3 L Ur Specific [place] Urine WBC (Auto) Vancomycin Trough Coronavirus (PCR) 12/16/20 12/16/20 12/16/20 04:46 05:34 11:40 WBC RBC Hgb Hct RDW Plt Count Lymph % (Auto) [place] % (Auto) Lymph # (Auto) [place] # (Auto) Baso # (Auto) Seg Neutrophils % Seg Neuts % (Manual) Lymphocytes % (Manual) Nucleated RBC % Seg Neutrophils # Seg Neutrophils # Man Lymphocytes # (Manual) D-Dimer ABG pH POC ABG pCO2 POC ABG pO2 ABG pO2 ABG HCO3 ABG O2 Saturation ABG Base Excess ABG Hemoglobin ABG Oxyhemoglobin ABG Sodium ABG Potassium ABG Chloride ABG Glucose Oxyhemoglobin Carboxyhemoglobin Sodium 134 L Potassium Chloride 89.7 L Carbon Dioxide 38 H BUN Creatinine < 0.2 L Glucose 203 H POC Glucose 155 H 239 H Hemoglobin A1c Lactic Acid Calcium 7.5 L Magnesium Ferritin Total Bilirubin AST ALT Alkaline Phosphatase Lactate Dehydrogenase Total Creatine Kinase C-Reactive Protein Total Protein Albumin Triglycerides Arterial Blood Glucose Arterial Blood Ionized Calcium Ur Specific [place] Urine WBC (Auto) Vancomycin Trough Coronavirus (PCR) 12/16/20 12/16/20 12/17/20 17:42 23:45 03:59 WBC RBC Hgb Hct RDW Plt Count Lymph % (Auto) [place] % (Auto) Lymph # (Auto) [place] # (Auto) Baso # (Auto) Seg Neutrophils % Seg Neuts % (Manual) Lymphocytes % (Manual) Nucleated RBC % Seg Neutrophils # Seg Neutrophils # Man Lymphocytes # (Manual) D-Dimer ABG pH POC ABG pCO2 71.9 H POC ABG pO2 57.5 L ABG pO2 ABG HCO3 ABG O2 Saturation ABG Base Excess ABG Hemoglobin 10.8 L ABG Oxyhemoglobin 87.7 L ABG Sodium 131.5 L ABG Potassium ABG Chloride 90.0 L ABG Glucose 199 H Oxyhemoglobin Carboxyhemoglobin Sodium Potassium Chloride Carbon Dioxide BUN Creatinine Glucose POC Glucose 228 H 187 H Hemoglobin A1c Lactic Acid Calcium Magnesium Ferritin Total Bilirubin AST ALT Alkaline Phosphatase Lactate Dehydrogenase Total Creatine Kinase C-Reactive Protein Total Protein Albumin Triglycerides Arterial Blood Glucose 199 H Arterial Blood Ionized Calcium 4.4 L Ur Specific [place] Urine WBC (Auto) Vancomycin Trough Coronavirus (PCR) 12/17/20 12/17/20 12/17/20 05:35 11:55 12:40 WBC RBC Hgb Hct RDW Plt Count Lymph % (Auto) [place] % (Auto) Lymph # (Auto) [place] # (Auto) Baso # (Auto) Seg Neutrophils % Seg Neuts % (Manual) Lymphocytes % (Manual) Nucleated RBC % Seg Neutrophils # Seg Neutrophils # Man Lymphocytes # (Manual) D-Dimer ABG pH POC ABG pCO2 POC ABG pO2 ABG pO2 ABG HCO3 ABG O2 Saturation ABG Base Excess ABG Hemoglobin ABG Oxyhemoglobin ABG Sodium ABG Potassium ABG Chloride ABG Glucose Oxyhemoglobin Carboxyhemoglobin Sodium Potassium Chloride 95.2 L Carbon Dioxide 41 H* BUN Creatinine 0.2 L Glucose 138 H POC Glucose 159 H 181 H Hemoglobin A1c Lactic Acid Calcium 7.3 L Magnesium Ferritin Total Bilirubin AST ALT Alkaline Phosphatase Lactate Dehydrogenase Total Creatine Kinase C-Reactive Protein Total Protein Albumin Triglycerides Arterial Blood Glucose Arterial Blood Ionized Calcium Ur Specific [place] Urine WBC (Auto) Vancomycin Trough Coronavirus (PCR) 12/17/20 12/17/20 12/17/20 17:25 17:25 17:51 WBC RBC Hgb Hct RDW Plt Count Lymph % (Auto) [place] % (Auto) Lymph # (Auto) [place] # (Auto) Baso # (Auto) Seg Neutrophils % Seg Neuts % (Manual) Lymphocytes % (Manual) Nucleated RBC % Seg Neutrophils # Seg Neutrophils # Man Lymphocytes # (Manual) D-Dimer ABG pH POC ABG pCO2 POC ABG pO2 ABG pO2 ABG HCO3 ABG O2 Saturation ABG Base Excess ABG Hemoglobin ABG Oxyhemoglobin ABG Sodium ABG Potassium ABG Chloride ABG Glucose Oxyhemoglobin Carboxyhemoglobin Sodium 134 L Potassium Chloride 89.6 L Carbon Dioxide 44 H* BUN Creatinine 0.2 L Glucose 280 H POC Glucose 260 H Hemoglobin A1c Lactic Acid Calcium 8.0 L Magnesium 1.60 L Ferritin Total Bilirubin AST ALT Alkaline Phosphatase Lactate Dehydrogenase Total Creatine Kinase 47 L C-Reactive Protein Total Protein 6.2 L Albumin 2.1 L Triglycerides Arterial Blood Glucose Arterial Blood Ionized Calcium Ur Specific [place] Urine WBC (Auto) Vancomycin Trough Coronavirus (PCR) 12/18/20 12/18/20 12/18/20 00:12 03:56 04:32 WBC RBC 2.88 L Hgb 8.6 L Hct 26.0 L RDW 15.6 H Plt Count Lymph % (Auto) [place] % (Auto) Lymph # (Auto) [place] # (Auto) Baso # (Auto) Seg Neutrophils % Seg Neuts % (Manual) Lymphocytes % (Manual) Nucleated RBC % Seg Neutrophils # Seg Neutrophils # Man Lymphocytes # (Manual) D-Dimer ABG pH POC ABG pCO2 78.0 H POC ABG pO2 52.3 L ABG pO2 ABG HCO3 ABG O2 Saturation ABG Base Excess ABG Hemoglobin 11.7 L ABG Oxyhemoglobin 84.9 L ABG Sodium 131.6 L ABG Potassium ABG Chloride 89.0 L ABG Glucose 191 H Oxyhemoglobin Carboxyhemoglobin Sodium Potassium Chloride Carbon Dioxide BUN Creatinine Glucose POC Glucose 197 H Hemoglobin A1c Lactic Acid Calcium Magnesium Ferritin Total Bilirubin AST ALT Alkaline Phosphatase Lactate Dehydrogenase Total Creatine Kinase C-Reactive Protein Total Protein Albumin Triglycerides Arterial Blood Glucose 191 H Arterial Blood Ionized Calcium 4.4 L Ur Specific [place] Urine WBC (Auto) Vancomycin Trough Coronavirus (PCR) 12/18/20 12/18/20 12/18/20 04:32 05:19 08:27 WBC RBC Hgb Hct RDW Plt Count Lymph % (Auto) [place] % (Auto) Lymph # (Auto) [place] # (Auto) Baso # (Auto) Seg Neutrophils % Seg Neuts % (Manual) Lymphocytes % (Manual) Nucleated RBC % Seg Neutrophils # Seg Neutrophils # Man Lymphocytes # (Manual) D-Dimer ABG pH POC ABG pCO2 POC ABG pO2 ABG pO2 ABG HCO3 ABG O2 Saturation ABG Base Excess ABG Hemoglobin ABG Oxyhemoglobin ABG Sodium ABG Potassium ABG Chloride ABG Glucose Oxyhemoglobin Carboxyhemoglobin Sodium 134 L 131 L Potassium Chloride 89.5 L 89.0 L Carbon Dioxide 43 H* 41 H* BUN Creatinine < 0.2 L < 0.2 L Glucose 182 H 176 H POC Glucose 165 H Hemoglobin A1c Lactic Acid Calcium 8.1 L 7.5 L Magnesium Ferritin Total Bilirubin AST ALT Alkaline Phosphatase Lactate Dehydrogenase Total Creatine Kinase C-Reactive Protein Total Protein Albumin Triglycerides Arterial Blood Glucose Arterial Blood Ionized Calcium Ur Specific [place] Urine WBC (Auto) Vancomycin Trough Coronavirus (PCR) 12/18/20 12/18/20 12/18/20 11:37 17:26 23:19 WBC RBC Hgb Hct RDW Plt Count Lymph % (Auto) [place] % (Auto) Lymph # (Auto) [place] # (Auto) Baso # (Auto) Seg Neutrophils % Seg Neuts % (Manual) Lymphocytes % (Manual) Nucleated RBC % Seg Neutrophils # Seg Neutrophils # Man Lymphocytes # (Manual) D-Dimer ABG pH POC ABG pCO2 POC ABG pO2 ABG pO2 ABG HCO3 ABG O2 Saturation ABG Base Excess ABG Hemoglobin ABG Oxyhemoglobin ABG Sodium ABG Potassium ABG Chloride ABG Glucose Oxyhemoglobin Carboxyhemoglobin Sodium Potassium Chloride Carbon Dioxide BUN Creatinine Glucose POC Glucose 174 H 243 H 212 H Hemoglobin A1c Lactic Acid Calcium Magnesium Ferritin Total Bilirubin AST ALT Alkaline Phosphatase Lactate Dehydrogenase Total Creatine Kinase C-Reactive Protein Total Protein Albumin Triglycerides Arterial Blood Glucose Arterial Blood Ionized Calcium Ur Specific [place] Urine WBC (Auto) Vancomycin Trough Coronavirus (PCR) 12/19/20 12/19/20 12/19/20 03:41 05:26 11:56 WBC RBC Hgb Hct RDW Plt Count Lymph % (Auto) [place] % (Auto) Lymph # (Auto) [place] # (Auto) Baso # (Auto) Seg Neutrophils % Seg Neuts % (Manual) Lymphocytes % (Manual) Nucleated RBC % Seg Neutrophils # Seg Neutrophils # Man Lymphocytes # (Manual) D-Dimer ABG pH POC ABG pCO2 75.4 H POC ABG pO2 50.7 L ABG pO2 ABG HCO3 ABG O2 Saturation ABG Base Excess ABG Hemoglobin 10.4 L ABG Oxyhemoglobin 84.2 L ABG Sodium 131.1 L ABG Potassium ABG Chloride 89.0 L ABG Glucose 194 H Oxyhemoglobin Carboxyhemoglobin 1.6 H Sodium Potassium Chloride Carbon Dioxide BUN Creatinine Glucose POC Glucose 166 H 173 H Hemoglobin A1c Lactic Acid Calcium Magnesium Ferritin Total Bilirubin AST ALT Alkaline Phosphatase Lactate Dehydrogenase Total Creatine Kinase C-Reactive Protein Total Protein Albumin Triglycerides Arterial Blood Glucose 194 H Arterial Blood Ionized Calcium 4.3 L Ur Specific [place] Urine WBC (Auto) Vancomycin Trough Coronavirus (PCR) 12/19/20 12/19/20 12/19/20 18:17 23:39 Unknown WBC RBC Hgb Hct RDW Plt Count Lymph % (Auto) [place] % (Auto) Lymph # (Auto) [place] # (Auto) Baso # (Auto) Seg Neutrophils % Seg Neuts % (Manual) Lymphocytes % (Manual) Nucleated RBC % Seg Neutrophils # Seg Neutrophils # Man Lymphocytes # (Manual) D-Dimer ABG pH POC ABG pCO2 POC ABG pO2 ABG pO2 ABG HCO3 ABG O2 Saturation ABG Base Excess ABG Hemoglobin ABG Oxyhemoglobin ABG Sodium ABG Potassium ABG Chloride ABG Glucose Oxyhemoglobin Carboxyhemoglobin Sodium 133 L Potassium Chloride 89.9 L Carbon Dioxide 39 H BUN Creatinine 0.2 L Glucose 197 H POC Glucose 212 H 133 H Hemoglobin A1c Lactic Acid Calcium 7.6 L Magnesium Ferritin Total Bilirubin AST ALT Alkaline Phosphatase Lactate Dehydrogenase Total Creatine Kinase C-Reactive Protein Total Protein Albumin Triglycerides Arterial Blood Glucose Arterial Blood Ionized Calcium Ur Specific [place] Urine WBC (Auto) Vancomycin Trough Coronavirus (PCR) 12/20/20 12/20/20 12/20/20 03:26 04:00 04:00 WBC RBC 3.21 L Hgb 9.6 L Hct 29.2 L RDW 15.8 H Plt Count Lymph % (Auto) [place] % (Auto) Lymph # (Auto) [place] # (Auto) Baso # (Auto) Seg Neutrophils % Seg Neuts % (Manual) Lymphocytes % (Manual) Nucleated RBC % Seg Neutrophils # Seg Neutrophils # Man Lymphocytes # (Manual) D-Dimer ABG pH POC ABG pCO2 74.2 H POC ABG pO2 51.3 L ABG pO2 ABG HCO3 ABG O2 Saturation ABG Base Excess ABG Hemoglobin 10.0 L ABG Oxyhemoglobin ABG Sodium 128.9 L ABG Potassium ABG Chloride 87.0 L ABG Glucose 173 H Oxyhemoglobin Carboxyhemoglobin Sodium 132 L Potassium Chloride 86.0 L Carbon Dioxide 43 H* BUN Creatinine 0.2 L Glucose 193 H POC Glucose Hemoglobin A1c Lactic Acid Calcium 7.6 L Magnesium Ferritin Total Bilirubin AST ALT Alkaline Phosphatase Lactate Dehydrogenase Total Creatine Kinase C-Reactive Protein Total Protein Albumin Triglycerides Arterial Blood Glucose 173 H Arterial Blood Ionized Calcium 4.1 L Ur Specific [place] Urine WBC (Auto) Vancomycin Trough Coronavirus (PCR) 12/20/20 12/20/20 12/20/20 05:05 11:47 18:18 WBC RBC Hgb Hct RDW Plt Count Lymph % (Auto) [place] % (Auto) Lymph # (Auto) [place] # (Auto) Baso # (Auto) Seg Neutrophils % Seg Neuts % (Manual) Lymphocytes % (Manual) Nucleated RBC % Seg Neutrophils # Seg Neutrophils # Man Lymphocytes # (Manual) D-Dimer ABG pH POC ABG pCO2 POC ABG pO2 ABG pO2 ABG HCO3 ABG O2 Saturation ABG Base Excess ABG Hemoglobin ABG Oxyhemoglobin ABG Sodium ABG Potassium ABG Chloride ABG Glucose Oxyhemoglobin Carboxyhemoglobin Sodium Potassium Chloride Carbon Dioxide BUN Creatinine Glucose POC Glucose 171 H 238 H 205 H Hemoglobin A1c Lactic Acid Calcium Magnesium Ferritin Total Bilirubin AST ALT Alkaline Phosphatase Lactate Dehydrogenase Total Creatine Kinase C-Reactive Protein Total Protein Albumin Triglycerides Arterial Blood Glucose Arterial Blood Ionized Calcium Ur Specific [place] Urine WBC (Auto) Vancomycin Trough Coronavirus (PCR) 12/20/20 12/21/20 12/21/20 23:41 03:30 05:37 WBC RBC Hgb Hct RDW Plt Count Lymph % (Auto) [place] % (Auto) Lymph # (Auto) [place] # (Auto) Baso # (Auto) Seg Neutrophils % Seg Neuts % (Manual) Lymphocytes % (Manual) Nucleated RBC % Seg Neutrophils # Seg Neutrophils # Man Lymphocytes # (Manual) D-Dimer ABG pH POC ABG pCO2 73.4 H POC ABG pO2 63.0 L ABG pO2 ABG HCO3 ABG O2 Saturation ABG Base Excess ABG Hemoglobin 10.1 L ABG Oxyhemoglobin ABG Sodium 130.5 L ABG Potassium ABG Chloride 89.0 L ABG Glucose 171 H Oxyhemoglobin Carboxyhemoglobin Sodium Potassium Chloride Carbon Dioxide BUN Creatinine Glucose POC Glucose 167 H 152 H Hemoglobin A1c Lactic Acid Calcium Magnesium Ferritin Total Bilirubin AST ALT Alkaline Phosphatase Lactate Dehydrogenase Total Creatine Kinase C-Reactive Protein Total Protein Albumin Triglycerides Arterial Blood Glucose 171 H Arterial Blood Ionized Calcium 4.2 L Ur Specific [place] Urine WBC (Auto) Vancomycin Trough Coronavirus (PCR) 12/21/20 12/21/20 12/21/20 09:57 12:54 18:00 WBC RBC Hgb Hct RDW Plt Count Lymph % (Auto) [place] % (Auto) Lymph # (Auto) [place] # (Auto) Baso # (Auto) Seg Neutrophils % Seg Neuts % (Manual) Lymphocytes % (Manual) Nucleated RBC % Seg Neutrophils # Seg Neutrophils # Man Lymphocytes # (Manual) D-Dimer ABG pH POC ABG pCO2 POC ABG pO2 ABG pO2 ABG HCO3 ABG O2 Saturation ABG Base Excess ABG Hemoglobin ABG Oxyhemoglobin ABG Sodium ABG Potassium ABG Chloride ABG Glucose Oxyhemoglobin Carboxyhemoglobin Sodium 132 L Potassium Chloride 87.7 L Carbon Dioxide 42 H* BUN Creatinine 0.2 L Glucose 207 H POC Glucose 199 H 217 H Hemoglobin A1c Lactic Acid Calcium 7.7 L Magnesium Ferritin Total Bilirubin AST ALT Alkaline Phosphatase Lactate Dehydrogenase Total Creatine Kinase C-Reactive Protein Total Protein Albumin Triglycerides Arterial Blood Glucose Arterial Blood Ionized Calcium Ur Specific [place] Urine WBC (Auto) Vancomycin Trough Coronavirus (PCR) 12/21/20 12/22/20 12/22/20 Unknown 00:02 04:08 WBC RBC Hgb Hct RDW Plt Count Lymph % (Auto) [place] % (Auto) Lymph # (Auto) [place] # (Auto) Baso # (Auto) Seg Neutrophils % Seg Neuts % (Manual) Lymphocytes % (Manual) Nucleated RBC % Seg Neutrophils # Seg Neutrophils # Man Lymphocytes # (Manual) D-Dimer ABG pH POC ABG pCO2 67.6 H POC ABG pO2 57.3 L ABG pO2 ABG HCO3 ABG O2 Saturation ABG Base Excess ABG Hemoglobin ABG Oxyhemoglobin ABG Sodium 130.9 L ABG Potassium ABG Chloride 92.0 L ABG Glucose 163 H Oxyhemoglobin Carboxyhemoglobin Sodium Potassium Chloride Carbon Dioxide BUN Creatinine Glucose POC Glucose 172 H Hemoglobin A1c Lactic Acid Calcium Magnesium Ferritin Total Bilirubin AST ALT Alkaline Phosphatase Lactate Dehydrogenase Total Creatine Kinase C-Reactive Protein Total Protein Albumin Triglycerides Arterial Blood Glucose 163 H Arterial Blood Ionized Calcium 4.2 L Ur Specific [place] Urine WBC (Auto) 172.0 H Vancomycin Trough Coronavirus (PCR) 12/22/20 12/22/20 12/22/20 05:19 11:33 17:20 WBC RBC Hgb Hct RDW Plt Count Lymph % (Auto) [place] % (Auto) Lymph # (Auto) [place] # (Auto) Baso # (Auto) Seg Neutrophils % Seg Neuts % (Manual) Lymphocytes % (Manual) Nucleated RBC % Seg Neutrophils # Seg Neutrophils # Man Lymphocytes # (Manual) D-Dimer ABG pH POC ABG pCO2 POC ABG pO2 ABG pO2 ABG HCO3 ABG O2 Saturation ABG Base Excess ABG Hemoglobin ABG Oxyhemoglobin ABG Sodium ABG Potassium ABG Chloride ABG Glucose Oxyhemoglobin Carboxyhemoglobin Sodium Potassium Chloride Carbon Dioxide BUN Creatinine Glucose POC Glucose 151 H 181 H 166 H Hemoglobin A1c Lactic Acid Calcium Magnesium Ferritin Total Bilirubin AST ALT Alkaline Phosphatase Lactate Dehydrogenase Total Creatine Kinase C-Reactive Protein Total Protein Albumin Triglycerides Arterial Blood Glucose Arterial Blood Ionized Calcium Ur Specific [place] Urine WBC (Auto) Vancomycin Trough Coronavirus (PCR) 12/22/20 12/23/20 12/23/20 23:25 05:19 05:32 WBC RBC Hgb Hct RDW Plt Count Lymph % (Auto) [place] % (Auto) Lymph # (Auto) [place] # (Auto) Baso # (Auto) Seg Neutrophils % Seg Neuts % (Manual) Lymphocytes % (Manual) Nucleated RBC % Seg Neutrophils # Seg Neutrophils # Man Lymphocytes # (Manual) D-Dimer ABG pH POC ABG pCO2 67.7 H POC ABG pO2 53.7 L ABG pO2 ABG HCO3 ABG O2 Saturation ABG Base Excess ABG Hemoglobin 9.6 L ABG Oxyhemoglobin ABG Sodium 130.2 L ABG Potassium ABG Chloride 88.0 L ABG Glucose 195 H Oxyhemoglobin Carboxyhemoglobin Sodium Potassium Chloride Carbon Dioxide BUN Creatinine Glucose POC Glucose 121 H 167 H Hemoglobin A1c Lactic Acid Calcium Magnesium Ferritin Total Bilirubin AST ALT Alkaline Phosphatase Lactate Dehydrogenase Total Creatine Kinase C-Reactive Protein Total Protein Albumin Triglycerides Arterial Blood Glucose 195 H Arterial Blood Ionized Calcium 4.1 L Ur Specific [place] Urine WBC (Auto) Vancomycin Trough Coronavirus (PCR) 12/23/20 12/23/20 12/23/20 06:07 11:21 18:10 WBC RBC Hgb Hct RDW Plt Count Lymph % (Auto) [place] % (Auto) Lymph # (Auto) [place] # (Auto) Baso # (Auto) Seg Neutrophils % Seg Neuts % (Manual) Lymphocytes % (Manual) Nucleated RBC % Seg Neutrophils # Seg Neutrophils # Man Lymphocytes # (Manual) D-Dimer ABG pH POC ABG pCO2 POC ABG pO2 ABG pO2 ABG HCO3 ABG O2 Saturation ABG Base Excess ABG Hemoglobin ABG Oxyhemoglobin ABG Sodium ABG Potassium ABG Chloride ABG Glucose Oxyhemoglobin Carboxyhemoglobin Sodium 135 L Potassium Chloride 89.3 L Carbon Dioxide 43 H* BUN Creatinine 0.2 L Glucose 193 H POC Glucose 155 H 178 H Hemoglobin A1c Lactic Acid Calcium 7.4 L Magnesium Ferritin Total Bilirubin AST ALT Alkaline Phosphatase Lactate Dehydrogenase Total Creatine Kinase C-Reactive Protein Total Protein Albumin Triglycerides Arterial Blood Glucose Arterial Blood Ionized Calcium Ur Specific [place] Urine WBC (Auto) Vancomycin Trough Coronavirus (PCR) 12/23/20 12/24/20 12/24/20 23:21 04:49 05:00 WBC RBC Hgb Hct RDW Plt Count Lymph % (Auto) [place] % (Auto) Lymph # (Auto) [place] # (Auto) Baso # (Auto) Seg Neutrophils % Seg Neuts % (Manual) Lymphocytes % (Manual) Nucleated RBC % Seg Neutrophils # Seg Neutrophils # Man Lymphocytes # (Manual) D-Dimer ABG pH POC ABG pCO2 75.5 H POC ABG pO2 50.5 L ABG pO2 ABG HCO3 ABG O2 Saturation ABG Base Excess ABG Hemoglobin 8.8 L ABG Oxyhemoglobin 86.3 L ABG Sodium 131.6 L ABG Potassium ABG Chloride 88.0 L ABG Glucose 186 H Oxyhemoglobin Carboxyhemoglobin 2.1 H Sodium Potassium Chloride Carbon Dioxide BUN Creatinine Glucose POC Glucose 126 H Hemoglobin A1c Lactic Acid Calcium Magnesium Ferritin Total Bilirubin AST ALT Alkaline Phosphatase Lactate Dehydrogenase Total Creatine Kinase C-Reactive Protein Total Protein Albumin Triglycerides 486 H Arterial Blood Glucose 186 H Arterial Blood Ionized Calcium 4.0 L Ur Specific [place] Urine WBC (Auto) Vancomycin Trough Coronavirus (PCR) 12/24/20 12/24/20 12/24/20 05:19 11:57 16:44 WBC RBC Hgb Hct RDW Plt Count Lymph % (Auto) George % (Auto) Lymph # (Auto) George # (Auto) Baso # (Auto) Seg Neutrophils % Seg Neuts % (Manual) Lymphocytes % (Manual) Nucleated RBC % Seg Neutrophils # Seg Neutrophils # Man Lymphocytes # (Manual) D-Dimer ABG pH POC ABG pCO2 POC ABG pO2 ABG pO2 ABG HCO3 ABG O2 Saturation ABG Base Excess ABG Hemoglobin ABG Oxyhemoglobin ABG Sodium ABG Potassium ABG Chloride ABG Glucose Oxyhemoglobin Carboxyhemoglobin Sodium Potassium Chloride Carbon Dioxide BUN Creatinine Glucose POC Glucose 162 H 163 H 191 H Hemoglobin A1c Lactic Acid Calcium Magnesium Ferritin Total Bilirubin AST ALT Alkaline Phosphatase Lactate Dehydrogenase Total Creatine Kinase C-Reactive Protein Total Protein Albumin Triglycerides Arterial Blood Glucose Arterial Blood Ionized Calcium Ur Specific [place] Urine WBC (Auto) Vancomycin Trough Coronavirus (PCR) 12/24/20 12/24/20 12/24/20 17:28 18:57 20:48 WBC 19.1 H RBC 2.91 L Hgb 8.3 L Hct 26.0 L RDW 16.0 H Plt Count Lymph % (Auto) George % (Auto) Lymph # (Auto) George # (Auto) Baso # (Auto) Seg Neutrophils % Seg Neuts % (Manual) 92.0 H Lymphocytes % (Manual) 5.0 L Nucleated RBC % Seg Neutrophils # Seg Neutrophils # Man 17.6 H Lymphocytes # (Manual) 1.0 L D-Dimer ABG pH 7.250 L POC ABG pCO2 102.6 H 82.1 H POC ABG pO2 42.4 L 38.6 L ABG pO2 ABG HCO3 ABG O2 Saturation ABG Base Excess ABG Hemoglobin 9.0 L 9.3 L ABG Oxyhemoglobin 69.9 L 70.8 L ABG Sodium 131.1 L 130.7 L ABG Potassium ABG Chloride 89.0 L 89.0 L ABG Glucose 211 H 226 H Oxyhemoglobin Carboxyhemoglobin 1.7 H 1.8 H Sodium Potassium Chloride Carbon Dioxide BUN Creatinine Glucose POC Glucose Hemoglobin A1c Lactic Acid Calcium Magnesium Ferritin Total Bilirubin AST ALT Alkaline Phosphatase Lactate Dehydrogenase Total Creatine Kinase C-Reactive Protein Total Protein Albumin Triglycerides Arterial Blood Glucose 211 H 226 H Arterial Blood Ionized Calcium 4.0 L 4.1 L Ur Specific [place] Urine WBC (Auto) Vancomycin Trough Coronavirus (PCR) 12/24/20 12/25/20 12/25/20 23:31 04:04 06:31 WBC RBC Hgb Hct RDW Plt Count Lymph % (Auto) George % (Auto) Lymph # (Auto) George # (Auto) Baso # (Auto) Seg Neutrophils % Seg Neuts % (Manual) Lymphocytes % (Manual) Nucleated RBC % Seg Neutrophils # Seg Neutrophils # Man Lymphocytes # (Manual) D-Dimer ABG pH POC ABG pCO2 75.6 H POC ABG pO2 43.3 L ABG pO2 ABG HCO3 ABG O2 Saturation ABG Base Excess ABG Hemoglobin 10.6 L ABG Oxyhemoglobin 77.6 L ABG Sodium 131.4 L ABG Potassium ABG Chloride 90.0 L ABG Glucose 185 H Oxyhemoglobin Carboxyhemoglobin 2.4 H Sodium Potassium Chloride Carbon Dioxide BUN Creatinine Glucose POC Glucose 181 H 153 H Hemoglobin A1c Lactic Acid Calcium Magnesium Ferritin Total Bilirubin AST ALT Alkaline Phosphatase Lactate Dehydrogenase Total Creatine Kinase C-Reactive Protein Total Protein Albumin Triglycerides Arterial Blood Glucose 185 H Arterial Blood Ionized Calcium 4.1 L Ur Specific [place] Urine WBC (Auto) Vancomycin Trough Coronavirus (PCR) 12/25/20 12/25/20 12/25/20 11:17 11:17 11:17 WBC 19.6 H RBC 2.82 L Hgb 8.1 L Hct 25.2 L RDW 16.2 H Plt Count Lymph % (Auto) George % (Auto) Lymph # (Auto) George # (Auto) Baso # (Auto) Seg Neutrophils % Seg Neuts % (Manual) Lymphocytes % (Manual) Nucleated RBC % Seg Neutrophils # Seg Neutrophils # Man Lymphocytes # (Manual) D-Dimer ABG pH POC ABG pCO2 POC ABG pO2 ABG pO2 ABG HCO3 ABG O2 Saturation ABG Base Excess ABG Hemoglobin ABG Oxyhemoglobin ABG Sodium ABG Potassium ABG Chloride ABG Glucose Oxyhemoglobin Carboxyhemoglobin Sodium 136 L Potassium Chloride 92.3 L Carbon Dioxide 44 H* BUN Creatinine 0.3 L Glucose 240 H POC Glucose Hemoglobin A1c Lactic Acid Calcium 7.3 L Magnesium Ferritin Total Bilirubin AST ALT Alkaline Phosphatase Lactate Dehydrogenase Total Creatine Kinase C-Reactive Protein Total Protein Albumin Triglycerides 328 H Arterial Blood Glucose Arterial Blood Ionized Calcium Ur Specific [place] Urine WBC (Auto) Vancomycin Trough Coronavirus (PCR) 12/25/20 12/25/20 12/25/20 12:07 17:52 21:49 WBC RBC Hgb Hct RDW Plt Count Lymph % (Auto) George % (Auto) Lymph # (Auto) George # (Auto) Baso # (Auto) Seg Neutrophils % Seg Neuts % (Manual) Lymphocytes % (Manual) Nucleated RBC % Seg Neutrophils # Seg Neutrophils # Man Lymphocytes # (Manual) D-Dimer ABG pH POC ABG pCO2 POC ABG pO2 ABG pO2 ABG HCO3 ABG O2 Saturation ABG Base Excess ABG Hemoglobin ABG Oxyhemoglobin ABG Sodium ABG Potassium ABG Chloride ABG Glucose Oxyhemoglobin Carboxyhemoglobin Sodium Potassium Chloride Carbon Dioxide BUN Creatinine Glucose POC Glucose 210 H 188 H 152 H Hemoglobin A1c Lactic Acid Calcium Magnesium Ferritin Total Bilirubin AST ALT Alkaline Phosphatase Lactate Dehydrogenase Total Creatine Kinase C-Reactive Protein Total Protein Albumin Triglycerides Arterial Blood Glucose Arterial Blood Ionized Calcium Ur Specific [place] Urine WBC (Auto) Vancomycin Trough Coronavirus (PCR) 12/25/20 12/26/20 12/26/20 23:47 04:00 05:20 WBC RBC Hgb Hct RDW Plt Count Lymph % (Auto) George % (Auto) Lymph # (Auto) George # (Auto) Baso # (Auto) Seg Neutrophils % Seg Neuts % (Manual) Lymphocytes % (Manual) Nucleated RBC % Seg Neutrophils # Seg Neutrophils # Man Lymphocytes # (Manual) D-Dimer ABG pH POC ABG pCO2 73.4 H POC ABG pO2 58.8 L ABG pO2 ABG HCO3 ABG O2 Saturation ABG Base Excess ABG Hemoglobin 7.4 L ABG Oxyhemoglobin ABG Sodium 135.2 L ABG Potassium ABG Chloride 96.0 L ABG Glucose 164 H Oxyhemoglobin Carboxyhemoglobin Sodium Potassium Chloride Carbon Dioxide BUN Creatinine Glucose POC Glucose 138 H 147 H Hemoglobin A1c Lactic Acid Calcium Magnesium Ferritin Total Bilirubin AST ALT Alkaline Phosphatase Lactate Dehydrogenase Total Creatine Kinase C-Reactive Protein Total Protein Albumin Triglycerides Arterial Blood Glucose 164 H Arterial Blood Ionized Calcium 4.1 L Ur Specific [place] Urine WBC (Auto) Vancomycin Trough Coronavirus (PCR) 12/26/20 12/26/20 12/26/20 05:26 05:26 05:26 WBC 16.2 H RBC 2.75 L Hgb 7.8 L Hct 24.1 L RDW 16.3 H Plt Count 451 H Lymph % (Auto) George % (Auto) Lymph # (Auto) George # (Auto) Baso # (Auto) Seg Neutrophils % Seg Neuts % (Manual) 87.0 H Lymphocytes % (Manual) Nucleated RBC % 5.0 H Seg Neutrophils # Seg Neutrophils # Man 14.1 H Lymphocytes # (Manual) 0.0 L D-Dimer ABG pH POC ABG pCO2 POC ABG pO2 ABG pO2 ABG HCO3 ABG O2 Saturation ABG Base Excess ABG Hemoglobin ABG Oxyhemoglobin ABG Sodium ABG Potassium ABG Chloride ABG Glucose Oxyhemoglobin Carboxyhemoglobin Sodium Potassium Chloride 95.2 L Carbon Dioxide 44 H* BUN Creatinine 0.2 L Glucose 155 H POC Glucose Hemoglobin A1c Lactic Acid Calcium 7.4 L Magnesium Ferritin Total Bilirubin AST ALT Alkaline Phosphatase Lactate Dehydrogenase Total Creatine Kinase C-Reactive Protein Total Protein 6.0 L Albumin 1.6 L Triglycerides 307 H Arterial Blood Glucose Arterial Blood Ionized Calcium Ur Specific [place] Urine WBC (Auto) Vancomycin Trough Coronavirus (PCR) 12/26/20 12/26/20 12/26/20 11:21 17:26 23:22 WBC RBC Hgb Hct RDW Plt Count Lymph % (Auto) George % (Auto) Lymph # (Auto) George # (Auto) Baso # (Auto) Seg Neutrophils % Seg Neuts % (Manual) Lymphocytes % (Manual) Nucleated RBC % Seg Neutrophils # Seg Neutrophils # Man Lymphocytes # (Manual) D-Dimer ABG pH POC ABG pCO2 POC ABG pO2 ABG pO2 ABG HCO3 ABG O2 Saturation ABG Base Excess ABG Hemoglobin ABG Oxyhemoglobin ABG Sodium ABG Potassium ABG Chloride ABG Glucose Oxyhemoglobin Carboxyhemoglobin Sodium Potassium Chloride Carbon Dioxide BUN Creatinine Glucose POC Glucose 127 H 134 H 125 H Hemoglobin A1c Lactic Acid Calcium Magnesium Ferritin Total Bilirubin AST ALT Alkaline Phosphatase Lactate Dehydrogenase Total Creatine Kinase C-Reactive Protein Total Protein Albumin Triglycerides Arterial Blood Glucose Arterial Blood Ionized Calcium Ur Specific [place] Urine WBC (Auto) Vancomycin Trough Coronavirus (PCR) 12/27/20 12/27/20 12/27/20 03:19 05:17 10:52 WBC RBC Hgb Hct RDW Plt Count Lymph % (Auto) [place] % (Auto) Lymph # (Auto) George # (Auto) Baso # (Auto) Seg Neutrophils % Seg Neuts % (Manual) Lymphocytes % (Manual) Nucleated RBC % Seg Neutrophils # Seg Neutrophils # Man Lymphocytes # (Manual) D-Dimer ABG pH POC ABG pCO2 75.0 H POC ABG pO2 74.3 L ABG pO2 ABG HCO3 ABG O2 Saturation ABG Base Excess ABG Hemoglobin 7.3 L ABG Oxyhemoglobin 92.8 L ABG Sodium 135.6 L ABG Potassium ABG Chloride ABG Glucose 151 H Oxyhemoglobin Carboxyhemoglobin 2.0 H Sodium 136 L Potassium Chloride 96.8 L Carbon Dioxide 38 H BUN Creatinine 0.2 L Glucose 139 H POC Glucose 121 H Hemoglobin A1c Lactic Acid Calcium 7.0 L Magnesium Ferritin Total Bilirubin AST 52 H ALT Alkaline Phosphatase Lactate Dehydrogenase Total Creatine Kinase C-Reactive Protein Total Protein 4.7 L D Albumin 1.1 L Triglycerides Arterial Blood Glucose 151 H Arterial Blood Ionized Calcium 4.2 L Ur Specific [place] Urine WBC (Auto) Vancomycin Trough Coronavirus (PCR) 12/27/20 12:02 WBC RBC Hgb Hct RDW Plt Count Lymph % (Auto) George % (Auto) Lymph # (Auto) George # (Auto) Baso # (Auto) Seg Neutrophils % Seg Neuts % (Manual) Lymphocytes % (Manual) Nucleated RBC % Seg Neutrophils # Seg Neutrophils # Man Lymphocytes # (Manual) D-Dimer ABG pH POC ABG pCO2 POC ABG pO2 ABG pO2 ABG HCO3 ABG O2 Saturation ABG Base Excess ABG Hemoglobin ABG Oxyhemoglobin ABG Sodium ABG Potassium ABG Chloride ABG Glucose Oxyhemoglobin Carboxyhemoglobin Sodium Potassium Chloride Carbon Dioxide BUN Creatinine Glucose POC Glucose 126 H Hemoglobin A1c Lactic Acid Calcium Magnesium Ferritin Total Bilirubin AST ALT Alkaline Phosphatase Lactate Dehydrogenase Total Creatine Kinase C-Reactive Protein Total Protein Albumin Triglycerides Arterial Blood Glucose Arterial Blood Ionized Calcium Ur Specific [place] Urine WBC (Auto) Vancomycin Trough Coronavirus (PCR)
[2020-12-27] MEDS ORDERED: PROPOFOL 1,000 MG/100 ML BOTTLE IV ONE (15:00)
[2020-12-27 15:06] LABS: Hematocrit 25.6 % (35.5-45.6); Mean Corpuscular HGB Conc 31 % (32-34); Mean Corpuscular Volume 91 fl (84-94); Platelet Count 442 K/mm3 (140-440); Red Blood Count 2.82 M/mm3 (3.65-5.03); Red Cell Distribution Width 16.4 % (13.2-15.2)
[2020-12-27 20:50] LABS: Total Cells Counted 100
[2020-12-27 20:51] LABS: Band Neutrophils # (Manual) 7.5 K/mm3; Stomatocytes Rare
[2020-12-27 20:52] LABS: Large Platelets Rare; Platelet Estimate Consistent w Auto
[2020-12-27] MEDS: ENOXAPARIN 40 MG/0.4 ML INJ SUB-Q SCH (21:38)
[2020-12-27] MEDS: INSULIN GLARGINE 100 UNITS/ML SUB-Q SCH (21:39)
[2020-12-28] MEDS: PIPERACIL/TAZOBACTA 4.5/NS 100 4.5 GM/100 ML VIAL IV SCH ×5 (00:23→23:54)
[2020-12-28] MEDS: INSULIN LISPRO 100 UNIT/ML SUB-Q SCH ×4 (00:23→17:51)
[2020-12-28] MEDS: NORepinephrine 8 MG in SODIUM CHLORIDE 0.9% 250ML 242 ML IV SCH ×4 (01:00→19:25)
[2020-12-28] MEDS: fentaNYL DRIP Premix 2,000 MCG/100 ML BAG IV SCH ×4 (02:42→22:06)
[2020-12-28] MEDS: SENNOSIDES/DOCUSATE SODIUM 8.6/50 MG TAB PO SCH ×3 (06:05→22:08)
[2020-12-28 06:48] LABS: Hematocrit 25.1 % (35.5-45.6); Hemoglobin 7.9 gm/dl (11.8-15.2); Mean Corpuscular HGB Conc 32 % (32-34); Mean Corpuscular Volume 90 fl (84-94); Platelet Count 484 K/mm3 (140-440); Red Blood Count 2.78 M/mm3 (3.65-5.03); Red Cell Distribution Width 16.4 % (13.2-15.2)
[2020-12-28 08:44] LABS: Alanine Aminotransferase 21 units/L (7-56); Albumin 1.4 g/dL (3.9-5); Blood Urea Nitrogen 15 mg/dL (9-20); Calcium 7.3 mg/dL (8.4-10.2); Hemolysis Index 0
[2020-12-28 08:57] LABS: BUN/Creatinine Ratio 50
--- NOTE | 2020-12-28 09:14 | Progress Note ---
Assessment and Plan Assessment and plan: -Continue antibiotic therapy with Zosyn -Remains on vasopressor support -Chest tube management as per surgery/CCM -Maintained on mechanical ventilation -Continue to monitor glucose levels -Continue supportive care -ID and critical care following -Prognosis is very poor DVT/GI prophylaxis: SCDs to bilateral lower extremities while in bed, Lovenox subcu, PPI Disposition: ICU The high probability of a clinically significant, sudden or life threatening deterioration of the [multi] system(s) required my full and direct attention, intervention and personal management. The aggregate critical care time was [60] minutes. This time is in addition to time spent performing reported procedures but includes the following: [x] Data Review and interpretation [x] Patient assessment and monitoring of vital signs [x] Documentation [x] Medication orders and management History Interval history: 59-year-old female who is smoker who presented to [facility] with shortness of breath cough fever weakness for 1 to 2 days prior to arrival. Per EMS the patient was severely hypoxic with saturations in the low 80s. With all oxygen and nonrebreather came down to low 90s. ID, pulmonary, CCM were consulted. Septic Shock Coag Negative staph/Entrococcus bactermia MRSA/Klebsiella in sputum COVID-19 pneumonia Acute hypoxic hypercapnic respiratory failure Bilateral pneumothorax Pneumomediastinum with subcutaneous emphysema Elevated D-dimer Transaminitis secondary to Covid 19 Klebsiella pneumonia Type 2 diabetes mellitus Severe protien calorie malnutrition secondary to critical illness Hypokalemia Metabolic alkalosis Hypercapnia 2/1: Patient continues on BiPAP throughout the night. Labs are remarkable for hypoxia with improving renal function but lactic acidosis without fever. CTA has been ordered to rule out pulmonary embolism. I agree with increasing enoxaparin to twice daily full dose for empiric treatment of pulmonary embolism. Will obtain ID consultation on further evaluation for possible underlying pneumonia versus COVID-19. We will also obtain echocardiogram for evaluation. Will discontinue fluids at this time. 2/2; Continue supportive care, Patient remains with very guarded prognosis, remains on BiPAP, continues on Remdesivir, and steroids. Will continue anticoagulation, unable to get CTA Chest due to patients unstable clinical status. Will adjust insulin for better blood glucose 2/3: Continues on BIPAP, no clear improvement at this time. Will continue steroids therapy Remdesivir and also Full anticoagulation at this time. Will update family. Discussed with Rush Seater. 2/4: Taking a break from the BiPAP on high flow and nonrebreather 100% with saturation of 90% becomes hypoxic with any movement. Rush Seater input noted will get a dose of Lasix today. Will await a discussion with ID for possibly increasing steroid. I updated Patient's Cousin, Tayla Esquivel who is the emergency salesperson neckties. Blood sugar remains fluctuating secondary to steriods, Encouraged Prone positioning. Noted with mild hyponatremia we will continue to monitor and manage 11/20: Continue supportive care wean oxygen as tolerated prognosis remains guarded. Encouraged to progress as tolerated. Awaiting labs today. Discussed with nursing staff and patient at bedside. 11/21: Discontinued Dexamethasone as Solumedrol started secondary to increased oxygen demand. Will give additional insulin for better control. Continue oxygen support patient still on high flow. Prognosis still guarded 11/22: Patient was intubated and placed on mechanical ventilation. Continue c urrent medication. Will check a.m. labs today. Noted still with hypotension. Doubt septic shock at this time as patient has no new fever. Will adjust insulin for better blood sugar control. 11/23: Patient admitted with COVID-19 despite all efforts patient remains severely hypoxic and now is intubated. Rush Seater input noted. Blood pressure marginal at this time. Very poor prognosis. Continue Solu-Medrol. 11/24. Patient remains very hypoxic. Blood pressure borderline. Plan for initiation of paralytic agents as per verification engineer. Patient may need to be transferred if no improvement. 11/26. Off paralytics. Remains intubated. On steroids. Prognosis is poor. 11/27. Chest xray shows pneumomediastinum and subcutaneous emphysema. Surgery consulted. Plan for chest tube placement. Sputum culture grew MRSA. Patient started on vancomycin per ID. 11/28. Right chest tube placed yesterday by surgery. Repeat chest x-ray showed left small pneumothorax. Plan for chest tube placement on the left today. Remains on paralytic agents. 11/29. Remains intubated on vent. Had left chest tube placed yesterday. Vitals reviewed. Critical care following 11/30/ Remains on mechanical ventilation. Worsening hypoxia. Bilateral chest tubes in place. Vitals reviewed. Labs reviewed 12/01: Chest tube and mechanical ventilation remains in place, poor prognosis, FIO2 remains at 90%, adjust insulin for better blood glucose control 12/02: Patient remains on full ventilatory support and steroids, still with worsening leukocytosis ?inflammatory or infectious vs steroids. Continue vancomycin. 12/03; slowly weaning, 12/04: Still on the vent FiO2 down to 65% PEEP remains at 18. Still with poor pr ognosis. 12/05: Patient continues on full ventilatory support per verification engineer PEEP remains at 18. Still with hypercapnic respiratory failure. FiO2 down to 60% this morning. Chest tube to suction still weaning off steroids in the deliberation ongoing for possible a third chest tube as last documentation by surgery shows no plan for it at this time. Continue to manage insulin for better blood sugar control. 12/06:weaned down to 60%, continue supportive care, unable to wean, 12/07; patient remains intubated on ventilatory support, chest tubes in place trach and PEG when patient's Covid test is negative,Per surgery. 12/08; Patient remains intubated remains with hypercapnia and hypoxia. Chest tube still remain in place. He is off antibiotics at this time. Continue steroids which is likely resultant to the leukocytosis. Rush Seater and surgeon following ID input is noted. Prognosis remains guarded to poor 12/10; patient remains intubated on vent, unable to wean awaiting trach and PEG when Covid test is negative, Continue current management 12/11; patient awaiting trach and PEG when Covid test is negative, vent dependent, poor prognosis 12/12; clinically no change, vent dependent, Patient is critically ill with very poor prognosis, awaiting trach and PEG when COVID-19 test turns negative. Plan discussed with nursing staff. Caregivers have discussed with patient's family periodically 12/13: Patient is critically ill with very poor prognosis, awaiting trach and PEG when COVID-19 test turns negative. Plan discussed with nursing staff. Caregivers have discussed with patient's family periodically 12/14: Increase UOP which we will monitor and replete as needed. Patient remain hypoxemic on ABG despite 100 FiO2, remains on fentanyl, precedex, versed and levo gtt. 12/15: Patient remains sedated on fentanyl at 3 mcg, Versed at 30 mg, dexamethasone 0.3 and was on Levophed 6 mcg this morning. Patient's vent settings rate of 30, tidal volume 425, PEEP of 18, FiO2 of 85. RT attempted to wean as tolerated. No acute events reported overnight. Bilateral chest tubes t o wall suction. 12/16: Overnight the patient was noted to be bradycardic, Precedex drip was increased to 0.6/fentanyl to 4 mcg/Versed 5 mg, bilateral chest tube to suction. Current vent settings for 425/30/18/0.75, RT to wean as tolerated 12/17: Patient's T-max overnight was 101.2, obtain CXR today, blood culture x2 per ID. Patient remains on fentanyl, Versed, Precedex and Levophed. Current vent settings AC 425/30/18/0.75, RT to wean as tolerated. Continue steroid taper. 12/18: Patient remains sedated on fentanyl, Versed, Precedex and has vasopressor support of Levophed, current vent settings 425/30/18/0.75 with bilateral chest tubes to wall suction. Patient's blood culture from 12/17 grew gram-positive cocci in pairs and chains however the patient is on vancomycin and cefepime. We will continue to follow for speciation and sensitivity. 12/19: Unfortunately remains on full ventilatory support prognosis remains very poor. No new fever however since 12/17. Continue to follow cultures not finalized yet. Antibiotics per ID critical care management input noted. Patient remains on high FiO2 and PEEP at this time. 12/20: Still with intermittent fever, likely secondary to covid 19, still with hyponatremia, continue with tube feed. cultures with coagulas negative staph, await further ID input. Continues on abx. 12/21: Patient remains on fentanyl, Precedex, Versed and Levophed and assist control for 25/30/18/.100 with bilateral chest tubes in place. Patient remains on antibiotic therapy. No acute events reported overnight. 12/22: Patient remains sedated on Precedex and fentanyl and on vasopressor support, blood cultures grew coag negative Staphylococcus and Enterococcus and antibiotic therapy was deescalated to ampicillin by infectious disease. This morning patient was on assist control for 25/30/18/0.100 and respiratory therapy to decrease FiO2 as tolerated. 12/23: Patient remains sedated on Versed, fentanyl, propofol, dexamethasone and vasopressor support with Levophed. Patient is on ampicillin with a T-max of 99 and current vent settings assist-control 425/30/18/0.90 which is being weaned as tolerated by RT. Patient bowel regimen escalated. 12/24: Patient was febrile overnight to 102, remains sedated on Versed, fentanyl, propofol and Precedex and on respiratory support with Levophed. This morning at the time my examination patient was on assist control 425/30/18/0.100. Patient's bowel regimen was escalated. This afternoon patient SPO2 dropped into the upper 60s and low 70s, patient was removed off the ventilator and bagged by RT with improvement in his SPO2 to mid 70s and his ventilator settings were adjusted with an increase in PEEP to 22 and reduction in tidal volume. Patient remained with SPO2 in the 70s to 80s then suddenly dropped his SPO2 again. A CXR was obtained and patient received 40 mg of IV Lasix. CXR showed pneumothorax and general surgery was consulted for chest tube placement. Patient's existing right chest tube was replaced after removal. During chest tube was placed on the right side and a repeat CXR is being performed. Dr. German and Dr. Hnery were kept up to date throughout the process and Dr. Henry was at beside during this time. I attempted to call Kehinde but was unable to contact him but left a voicemail. Jd was called and informed of changes with translation provided by Tayla. I spoke to them on the phone for over 30 minutes and explained the situation. They did not wish to change his CODE STATUS. Per CCM the patient respikes his temperature over the next 24 hours we will reculture his urine and blood. Patient remains on antibiotic therapy for 14 days per infectious disease 01/04/2021. Repeat blood cultures are negative. 12/25: Patient developed subcu emphysema on right chest and a repeat CXR shows minimal pneumothorax on the right chest wall which has not increased in size. At the time of my examination patient was on assist control 400/30/18/0.100 and the subcutaneous emphysema was noted after the patient's PEEP was increased. Patient remains sedated on Versed, fentanyl, Precedex and propofol with vasopressor support of Levophed. Patient's family decided to make the patient an AND and his CODE STATUS was updated. We will continue supportive care. Infectious disease has escalated antibiotic therapy to Zosyn. 12/26. Remains mechanically ventilated. On AC 30/400/100% PEEP 22. Not responsive. Sedated. On pressors. Labs reviewed. On antibiotics. 12/27. No change in medical condition. Remains on AC 100% PEEP of 22. Sedated and on pressors. On antibiotics-Zosyn. ID and critical care on board. General surgery also following for management of chest tubes. Prognosis is very poor 12/28: Patient remains sedated on Versed, fentanyl, propofol and Precedex and has vasopressor support with Levophed quad strength at 22. Patient subcu air seems to be bilateral in his upper chest. At the time my examination patient is on 400///.95 and RT will wean his vent 0.90. Patient still has leukocytosis, metabolic alkalosis, hypokalemia. Hospitalist Physical - Constitutional Vitals: Temp Pulse Resp BP Pulse Ox 97.7 F 82 30 H 105/61 100 12/28/20 08:00 12/28/20 09:00 12/28/20 09:00 12/28/20 09:00 12/28/20 09:00 General appearance: Present: no acute distress, well-nourished, other (Vent dependent) - EENT ENT: poor dentition - Respiratory Respiratory effort: normal Respiratory: bilateral: diminished - Cardiovascular Rhythm: regular Heart Sounds: Present: S1 & S2. Absent: systolic murmur, diastolic murmur - Extremities Extremities: no ischemia, pulses intact, pulses symmetrical, normal temperature, normal color Peripheral Pulses: within normal limits - Abdominal General gastrointestinal: soft, non-tender, non-distended, normal bowel sounds - Integumentary Integumentary: Present: warm, dry - Psychiatric Psychiatric: other (Sedated) - Neurologic Neurologic: other (Sedated) HEART Score - HEART Score Troponin: Troponin T < 0.010 ng/mL (0.00-0.029) 12/11/20 06:30 Results - Labs CBC & Chem 7: 12/28/20 05:45 12/28/20 05:45 Labs: Laboratory Last Values WBC 13.4 K/mm3 (4.5-11.0) H 12/28/20 05:45 RBC 2.78 M/mm3 (3.65-5.03) L 12/28/20 05:45 Hgb 7.9 gm/dl (11.8-15.2) L 12/28/20 05:45 Hct 25.1 % (35.5-45.6) L 12/28/20 05:45 MCV 90 fl (84-94) 12/28/20 05:45 MCH 29 pg (28-32) 12/28/20 05:45 MCHC 32 % (32-34) 12/28/20 05:45 RDW 16.4 % (13.2-15.2) H 12/28/20 05:45 Plt Count 484 K/mm3 (140-440) H 12/28/20 05:45 Lymph % (Auto) 2.0 % (13.4-35.0) L 11/27/20 06:25 [place] % (Auto) 5.2 % (0.0-7.3) 11/27/20 06:25 Eos % (Auto) 0.0 % (0.0-4.3) 11/27/20 06:25 Baso % (Auto) 0.1 % (0.0-1.8) 11/27/20 06:25 Lymph # (Auto) 0.3 K/mm3 (1.2-5.4) L 11/27/20 06:25 [place] # (Auto) 0.7 K/mm3 (0.0-0.8) 11/27/20 06:25 Eos # (Auto) 0.0 K/mm3 (0.0-0.4) 11/27/20 06:25 Baso # (Auto) 0.0 K/mm3 (0.0-0.1) 11/27/20 06:25 Add Manual Diff Complete 12/27/20 14:09 Total Counted 100 12/27/20 14:09 Seg Neutrophils % Mail Clerks Supervisor 12/24/20 18:57 Seg Neuts % (Manual) 36.0 % (40.0-70.0) L 12/27/20 14:09 Band Neutrophils % 52.0 % 12/27/20 14:09 Lymphocytes % (Manual) 7.0 % (13.4-35.0) L 12/27/20 14:09 Monocytes % (Manual) 1.0 % (0.0-7.3) 12/27/20 14:09 Metamyelocytes % 4.0 % 12/27/20 14:09 Nucleated RBC % 18.0 % (0.0-0.9) H 12/27/20 14:09 Seg Neutrophils # 12.7 K/mm3 (1.8-7.7) H 11/27/20 06:25 Seg Neutrophils # Man 5.2 K/mm3 (1.8-7.7) 12/27/20 14:09 Band Neutrophils # 7.5 K/mm3 12/27/20 14:09 Lymphocytes # (Manual) 1.0 K/mm3 (1.2-5.4) L 12/27/20 14:09 Abs React Lymphs (Man) 0.0 K/mm3 12/27/20 14:09 Monocytes # (Manual) 0.1 K/mm3 (0.0-0.8) 12/27/20 14:09 Eosinophils # (Manual) 0.0 K/mm3 (0.0-0.4) 12/27/20 14:09 Basophils # (Manual) 0.0 K/mm3 (0.0-0.1) 12/27/20 14:09 Metamyelocytes # 0.6 K/mm3 12/27/20 14:09 Myelocytes # 0.0 K/mm3 12/27/20 14:09 Promyelocytes # 0.0 K/mm3 12/27/20 14:09 Blast Cells # 0.0 K/mm3 12/27/20 14:09 WBC Morphology Not Reportable 12/27/20 14:09 Hypersegmented Neuts Not Reportable 12/27/20 14:09 Hyposegmented Neuts Not Reportable 12/27/20 14:09 Hypogranular Neuts Not Reportable 12/27/20 14:09 Smudge Cells Not Reportable 12/27/20 14:09 Toxic Granulation Not Reportable 12/27/20 14:09 Toxic Vacuolation Not Reportable 12/27/20 14:09 Dohle Bodies Not Reportable 12/27/20 14:09 Pelger-Huet Anomaly Not Reportable 12/27/20 14:09 Tony Rods Not Reportable 12/27/20 14:09 Platelet Estimate Consistent w auto 12/27/20 14:09 Clumped Platelets Not Reportable 12/27/20 14:09 Plt Clumps, EDTA Not Reportable 12/27/20 14:09 Large Platelets Rare 12/27/20 14:09 Giant Platelets Not Reportable 12/27/20 14:09 Platelet Satelliting Not Reportable 12/27/20 14:09 Plt Morphology Comment Not Reportable 12/27/20 14:09 RBC Morphology Not Reportable 12/27/20 14:09 Dimorphic RBCs Not Reportable 12/27/20 14:09 Polychromasia Few 12/27/20 14:09 Hypochromasia Not Reportable 12/27/20 14:09 Poikilocytosis Not Reportable 12/27/20 14:09 Anisocytosis Not Reportable 12/27/20 14:09 Microcytosis Not Reportable 12/27/20 14:09 Macrocytosis Not Reportable 12/27/20 14:09 Spherocytes Not Reportable 12/27/20 14:09 Pappenheimer Bodies Not Reportable 12/27/20 14:09 Sickle Cells Not Reportable 12/27/20 14:09 Target Cells Not Reportable 12/27/20 14:09 Tear Drop Cells Not Reportable 12/27/20 14:09 Ovalocytes Not Reportable 12/27/20 14:09 Stomatocytes Rare 12/27/20 14:09 Helmet Cells Not Reportable 12/27/20 14:09 [place] Bodies Not Reportable 12/27/20 14:09 [place] Rings Not Reportable 12/27/20 14:09 [place] Cells Not Reportable 12/27/20 14:09 Bite Cells Not Reportable 12/27/20 14:09 Crenated Cell Not Reportable 12/27/20 14:09 Elliptocytes Not Reportable 12/27/20 14:09 Acanthocytes (Spur) Not Reportable 12/27/20 14:09 Rouleaux Not Reportable 12/27/20 14:09 Hemoglobin C Crystals Not Reportable 12/27/20 14:09 Schistocytes Not Reportable 12/27/20 14:09 Malaria parasites Not Reportable 12/27/20 14:09 Yovani Bodies Not Reportable 12/27/20 14:09 Hem Pathologist Commnt No 12/27/20 14:09 D-Dimer 926.11 ng/mlDDU (0-234) H 11/26/20 06:04 ABG pH 7.328 (7.320-7.450) 12/28/20 03:48 POC ABG pCO2 73.1 mmHg (32.0-48.0) H 12/28/20 03:48 ABG pCO2 81.3 mm Hg 12/08/20 04:12 POC ABG pO2 66.2 mmHg (83-108) L 12/28/20 03:48 ABG pO2 69.7 mm Hg (80.0-90.0) L 12/08/20 04:12 POC ABG HCO3 37.5 12/28/20 03:48 ABG HCO3 50.1 mmol/L (20.0-26.0) H 12/08/20 04:12 ABG O2 Saturation 92 (0-100) 12/28/20 03:48 ABG O2 Content 13.0 (0.0-44) 12/07/20 05:20 POC ABG Base Excess 9.8 12/28/20 03:48 ABG Base Excess 21.6 mmol/L (-2.0-3.0) H 12/08/20 04:12 ABG Hemoglobin 8.9 (12.0-17.5) L 12/28/20 03:48 ABG Oxyhemoglobin 90.3 (94-98) L 12/28/20 03:48 ABG Carboxyhemoglobin 2.0 % (0.0-5.0) 12/08/20 04:12 ABG Methemoglobin 0.3 (0.0-1.5) 12/28/20 03:48 ABG Sodium 136.8 mmol/L (136.0-145.0) 12/28/20 03:48 ABG Potassium 3.3 mmol/L (3.40-4.50) L 12/28/20 03:48 ABG Chloride 100.0 mmol/L (98-107) 12/28/20 03:48 ABG Glucose 107 mg/dL (65-95) H 12/28/20 03:48 Oxyhemoglobin 93.2 % (95.0-99.0) L 12/08/20 04:12 Carboxyhemoglobin 1.6 (0.5-1.5) H 12/28/20 03:48 FiO2 90 12/23/20 05:19 FiO2 % 95 12/28/20 03:48 Sodium 140 mmol/L (137-145) 12/28/20 05:45 Potassium 3.2 mmol/L (3.6-5.0) L D 12/28/20 05:45 Chloride 99.2 mmol/L (98-107) 12/28/20 05:45 Carbon Dioxide 41 mmol/L (22-30) H* 12/28/20 05:45 Anion Gap 3 mmol/L 12/28/20 05:45 BUN 15 mg/dL (9-20) 12/28/20 05:45 Creatinine 0.3 mg/dL (0.8-1.3) L 12/28/20 05:45 Estimated GFR > 60 ml/min 12/28/20 05:45 BUN/Creatinine Ratio 50 % 12/28/20 05:45 Glucose 97 mg/dL (75-100) 12/28/20 05:45 POC Glucose 130 mg/dL (70-105) H 12/27/20 22:58 Hemoglobin A1c 11.7 % (4-6) H 11/16/20 05:29 Lactic Acid 2.60 mmol/L (0.7-2.0) H* 11/16/20 05:29 Calcium 7.3 mg/dL (8.4-10.2) L 12/28/20 05:45 Phosphorus 2.60 mg/dL (2.5-4.5) 12/17/20 17:25 Magnesium 1.60 mg/dL (1.7-2.3) L 12/17/20 17:25 Ferritin 778.8 ng/mL (30.0-300.0) H 11/26/20 04:00 Total Bilirubin 0.40 mg/dL (0.1-1.2) 12/28/20 05:45 AST 23 units/L (5-40) 12/28/20 05:45 ALT 21 units/L (7-56) 12/28/20 05:45 Alkaline Phosphatase 90 units/L (35-129) 12/28/20 05:45 Lactate Dehydrogenase 288 units/L (91-180) H 11/26/20 04:00 Total Creatine Kinase 47 units/L (55-170) L 12/17/20 17:25 CK-MB (CK-2) 1.8 ng/mL (0.0-4.0) 12/17/20 17:25 CK-MB (CK-2) Rel Index 3.8 (0-4) 12/17/20 17:25 Troponin T < 0.010 ng/mL (0.00-0.029) 12/11/20 06:30 C-Reactive Protein 1.40 mg/dL (0.00-1.30) H 11/26/20 04:00 NT-Pro-B Natriuret Pep 107.2 pg/mL (0-900) 11/17/20 10:21 Total Protein 6.0 g/dL (6.3-8.2) L D 12/28/20 05:45 Albumin 1.4 g/dL (3.9-5) L 12/28/20 05:45 Albumin/Globulin Ratio 0.3 % 12/28/20 05:45 Triglycerides 307 mg/dL (2-149) H 12/26/20 05:26 Procalcitonin 0.16 ng/mL (<0.15) 12/12/20 05:16 Arterial Blood Glucose 107 mg/dL (65-95) H 12/28/20 03:48 Arterial Blood Ionized Calcium 4.4 mg/dL (4.6-5.3) L 12/28/20 03:48 Urine Color Yellow (Yellow) 12/21/20 Unknown Urine Turbidity Cloudy (Clear) 12/21/20 Unknown Urine pH 6.0 (5.0-7.0) 12/21/20 Unknown Ur Specific [place] 1.013 (1.003-1.030) 12/21/20 Unknown Urine Protein <15 mg/dl mg/dL (Negative) 12/21/20 Unknown Urine Glucose (UA) Neg mg/dL (Negative) 12/21/20 Unknown Urine Ketones Neg mg/dL (Negative) 12/21/20 Unknown Urine Blood Neg (Negative) 12/21/20 Unknown Urine Nitrite Neg (Negative) 12/21/20 Unknown Urine Bilirubin Neg (Negative) 12/21/20 Unknown Urine Urobilinogen < 2.0 mg/dL (<2.0) 12/21/20 Unknown Ur Leukocyte Esterase Mod (Negative) 12/21/20 Unknown Urine WBC (Auto) 172.0 /HPF (0.0-6.0) H 12/21/20 Unknown Urine RBC (Auto) > 182.0 /HPF (0.0-6.0) 12/21/20 Unknown U Epithel Cells (Auto) 3.0 /HPF (0-13.0) 12/21/20 Unknown Urine Bacteria (Auto) 2+ /HPF (Negative) 12/21/20 Unknown Ur Renal Epithelial Cell <1 /LPF 12/21/20 Unknown Urine Mucus 2+ /HPF 12/21/20 Unknown Urine Yeast (Budding) 3+ /HPF 12/21/20 Unknown Vancomycin Trough 16.9 ug/mL (5.0-20.0) 12/19/20 15:46 Coronavirus (PCR) Positive (Negative) A 12/13/20 10:00 Hepatitis A IgM Ab Non-reactive (NonReactive) 12/17/20 21:40 Hep Bs Antigen Non-reactive (Negative) 12/17/20 21:40 Hep B Core IgM Ab Non-reactive (NonReactive) 12/17/20 21:40 Hepatitis C Antibody Non-reactive (NonReactive) 12/17/20 21:40 HIV 1&2 Antibody Rapid Non react (Non React) 12/17/20 21:40 HIV P24 Antigen Non react (Non React) 12/17/20 21:40 - Diagnostic Impressions Diagnostic Impressions: Echocardiogram 11/16/20 10:34 Transthoracic Echocardiogram Indication: Shortness of breath-COVID BP: 108/77 HR: 92 Conclusions *Global left ventricular systolic function is normal. *The estimated ejection fraction is 60-65%. *Mild to moderate concentric left ventricular hypertrophy is observed. *There is trace of mitral regurgitation. *There is mild to moderate tricuspid regurgitation. *There is evidence of mild pulmonary hypertension. *The right ventricular systolic pressure is calculated at 31 mmHg. Findings Left Ventricle: The left ventricular chamber size is normal. Mild to moderate concentric left ventricular hypertrophy is observed. Global left ventricular systolic function is normal. The estimated ejection fraction is 60-65%. Left Atrium: The left atrial chamber size is normal. Right Ventricle: The right ventricular cavity size is normal. The right ventricular global systolic function is normal. Right Atrium: The right atrial cavity size is normal. Aortic Valve: The aortic valve is trileaflet. There is no evidence of aortic regurgitation. There is no evidence of aortic stenosis. Mitral Valve: The mitral valve leaflets appear normal. There is trace of mitral regurgitation. There is no evidence of mitral stenosis. Tricuspid Valve: The tricuspid valve leaflets are normal. There is mild to moderate tricuspid regurgitation. The right ventricular systolic pressure is calculated at 31 mmHg. There is evidence of mild pulmonary hypertension. Pulmonic Valve: There is trace pulmonic regurgitation. Pericardium: There is no pericardial effusion. Aorta: There is no dilatation of the ascending aorta. There is no dilatation of the aortic root. Venous: The inferior vena cava appears normal in size. Measurements Chambers 2D Name Value Normal Range IVSd (2D) 0.81 cm (0.6 - 1.1) LVPWd (2D) 0.79 cm (0.6 - 1.1) LVIDd (2D) 4.22 cm (3.7 - 5.6) LVIDs (2D) 3.1 cm (2 - 3.8) LV FS (2D) 26.71 % - EF Teichholz (2D) 52.55 % - Ao root diameter (2D) 3.34 cm (2 - 3.7) Volumes/Mass Name Value Normal Range LA ESV SP 4CH (A/L) 10.87 ml - LA ESV SP 2CH (A/L) 18.74 ml - LA ESV BP (A/L) 16.38 ml - LA ESV BP (A/L) index 8.62 ml/m2 - LA ESV SP 4CH (MOD) 10.32 ml - LA ESV SP 2CH (MOD) 17.66 ml - LA ESV BP (MOD) 15.12 ml - LA ESV BP (MOD) index 7.96 ml/m2 - Diastolic/Systolic Function Name Value Normal Range MV E-wave Vmax 0.76 m/sec - MV deceleration time 133.63 msec - MV A-wave Vmax 1.1 m/sec - MV E:A ratio 0.69 ratio - Aortic Valve Name Value Normal Range AV Vmax 1.44 m/sec - AV VTI 22.94 cm - AV peak gradient 8.33 mmHg - AV mean gradient 4.73 mmHg - LVOT diameter 2.2 cm - LVOT Vmax 1.04 m/sec - LVOT VTI 18.88 cm - LVOT peak gradient 4.34 mmHg - LVOT mean gradient 2.31 mmHg - SV LVOT 72.05 ml - EVANGELISTA (continuity Vmax) 2.75 cm2 - EVANGELISTA (continuity VTI) 3.14 cm2 - Tricuspid Valve Name Value Normal Range TR Vmax 2.64 m/sec - TR peak gradient 28 mmHg - RAP 3 mmHg - RVSP 31 mmHg - Gupta/IV: Voiding Method Indwelling Catheter IV Catheter Type [Left Peripheral IV Antecubital] Active Medications - Current Medications Current Medications: Generic Name Dose Route Start Last Admin Trade Name Freq PRN Reason Stop Dose Admin Acetaminophen 650 mg 11/15/20 23:55 12/25/20 07:24 Acetaminophen 325 Mg Tab PO 650 mg Q4H PRN Administration Pain MILD(1-3)/Fever >100.5/BUTTS Lipase/Protease/Amylase 1 each 11/23/20 11:53 12/05/20 23:45 Lipase 10,500/Protease 25,000/Amylase 43,750 (Units) Dr Slater FEEDTUBE 1 each PRN PRN Administration For Clogged Feeding Tube Dextrose 25 ml 12/10/20 05:21 12/10/20 05:24 Dextrose 50% In Water (25gm) 50 Ml Syringe IV 25 ml Q30MIN PRN Administration Hypoglycemia Protocol Docusate Sodium 100 mg 12/23/20 10:00 12/27/20 21:48 Docusate Sodium 100 Mg/10 Ml Oral Liqd PO Not Given BID RAEANN Enoxaparin Sodium 40 mg 12/03/20 22:00 12/27/20 21:38 Enoxaparin 40 Mg/0.4 Ml Inj SUB-Q 40 mg QDAY@2200 RAEANN Administration Famotidine 20 mg 12/16/20 10:00 12/27/20 21:38 Famotidine 20 Mg Tab PO 20 mg BID RAEANN Administration Hydrophilic Ointment 1 applic 11/21/20 21:53 11/30/20 21:33 Lip Therapy Vaseline TP 1 applic Q2HR PRN Administration Dry Lips Midazolam HCl 100 mg/ Sodium 100 mls @ 2 mls/hr 11/21/20 22:00 12/27/20 22:48 Chloride IV 5 mg/hr TITR RAEANN 5 mls/hr Administration Protocol 2 MG/HR Propofol 1,000 mg in 100 mls @ 2.175 mls/hr 11/27/20 12:00 12/28/20 06:10 Diprivan 10 Mg/Ml IV 15 mcg/kg/min TITR RAEANN 6.525 mls/hr Administration Protocol 5 MCG/KG/MIN Dexmedetomidine HCl 400 mcg/ 104 mls @ 4.441 mls/hr 12/10/20 13:00 12/28/20 08:48 Sodium Chloride IV 0.7 mcg/kg/hr TITRATE RAEANN 15.543 mls/hr Administration Protocol 0.2 MCG/KG/HR Fentanyl Citrate 2,000 mcg in 100 mls @ 3.9 mls/hr 12/18/20 19:00 12/28/20 08:44 Fentanyl Drip Premix IV 4 mcg/kg/hr TITR RAEANN 15.6 mls/hr Administration Protocol 1 MCG/KG/HR Vasopressin 20 unit/ Sodium 101 mls @ 9.09 mls/hr 12/24/20 18:30 Chloride IV TITR RAEANN Protocol 0.03 UNITS/MIN Piperacillin Sod/Tazobactam Sod 4.5 gm in 100 mls @ 200 mls/hr 12/25/20 12:00 12/28/20 06:04 Zosyn/Ns 4.5gm/100ml IV 200 mls/hr Q6H [facility] Administration Protocol Norepinephrine 8 mg/ Sodium 250 mls @ 3.75 mls/hr 12/25/20 22:00 12/28/20 07 :14 Chloride IV 22 mcg/min TITR RAEANN 41.25 mls/hr Administration Protocol 2 MCG/MIN Insulin Glargine 8 units 12/17/20 13:52 12/27/20 21:39 Insulin Glargine 100 Units/Ml SUB-Q 8 units QHS [facility] Administration Insulin Human Lispro 0 unit 11/22/20 06:00 12/28/20 06:05 Insulin Lispro 100 Unit/Ml SUB-Q Not Given Q6HR [facility] Protocol Metoclopramide HCl 10 mg 11/15/20 23:55 Metoclopramide 10 Mg/2 Ml Inj IV Q6H PRN Nausea And Vomiting Multi-Ingred Cream/Lotion/Oil/Oint 1 applic 11/21/20 21:53 Mineral Oil/Petrolatum, White Ophth Oint 3.5 Gm OU Q4HR PRN Dry Eye(s) Ondansetron HCl 4 mg 11/15/20 23:55 Ondansetron 4 Mg/2 Ml Inj IV Q8H PRN Nausea And Vomiting Polyethylene Glycol 17 gm 12/23/20 10:00 12/27/20 10:12 Polyethylene Glycol 3350 17 Gm Powder PO 17 gm QDAY [facility] Administration Potassium Chloride 40 meq 12/28/20 09:12 Potassium Chloride 20 Meq Packet FEEDTUBE 12/28/20 09:13 ONCE ONE Senna/Docusate Sodium 2 tab 12/21/20 14:00 12/28/20 06:05 Sennosides/Docusate Sodium 8.6/50 Mg Tab PO 2 tab Q8HR RAEANN Administration Simple Syrup 15 ml 11/23/20 11:53 Simple Syrup 15 Ml FEEDTUBE PRN PRN Hypoglycemia Simple Syrup 30 ml 11/23/20 11:53 Simple Syrup 15 Ml FEEDTUBE PRN PRN Hypoglycemia Sodium Bicarbonate 325 mg 11/23/20 11:53 12/05/20 23:46 Sodium Bicarbonate 325 Mg Tab FEEDTUBE 325 mg PRN PRN Administration For Clogged Feeding Tube Sodium Chloride 10 ml 11/16/20 10:00 12/27/20 21:48 Sodium Chloride 0.9% 10 Ml Flush Syringe IV 10 ml BID RAEANN Administration Sodium Chloride 10 ml 11/15/20 23:55 12/03/20 00:21 Sodium Chloride 0.9% 10 Ml Flush Syringe IV 10 ml PRN PRN Administration LINE FLUSH Nutrition/Malnutrition Assess - Dietary Evaluation Nutrition/Malnutrition Findings: Nutrition Notes Start: 11/20/20 12:03 Freq: Status: Active Protocol: Document 12/25/20 11:32 AL (Rec: 12/25/20 11:37 AL [id number]) Co-Sign 12/25/20 11:32 CW Nutrition Notes Initial or Follow up Reassessment Current Diagnosis Diabetes,Sepsis,Respiratory Failure Other Pertinent Diagnosis Bilat pneu, COVID-19 (+) Current Diet Glucerna 1.2 at 60 ml/hr Labs/Tests Reviewed Pertinent Medications Levophed in NS Propofol at 8.7 ml/hr (229 kcal) Lasix Height 5 ft 6 in Weight 83.9 kg Usual Body Weight 80.5 kg [place] Body Weight (kg) 64.54 BMI 29.8 Weight change and time frame Wt change 2.8 kg (3%) noted. Pt has edema. Weight Status Overweight Subjective/Other Information F/U for TF tolerance and last BM. Per RN, pt had last BM yesterday 12/24. Pt tolerates TF at 60 ml/hr (goal rate). Percent of energy/protein needs met: 100%/100% Burn Absent Trauma Absent GI Symptoms None Difficulty In Swallowing,Chewing Current % PO Negligible Minimum of two criteria Yes Interpretation of Weight Loss (severe) >2% in 1 week Fluid Accumulation Moderate to Severe (severe) #3 Nutrition Diagnosis Inadequate oral intake Diagnosis Progress(for reassessment Continues documentation) #2 Nutrition Diagnosis Malnutrition As Evidenced by Signs and Symptoms Pt meeting 100%/100% of estimated energy/protein needs via TF for >7 days Diagnosis Progress(for reassessment Improved documentation) #1 Nutrition Diagnosis Unintended weight loss Diagnosis Progress(for reassessment Continues documentation) Is patient on ventilator? Yes Is Patient Ambulatory and/or Out of Bed No REE-([facility]-confined to bed) 1920.756 Kcal/Kg value to use for calculation 22 Approximate Energy Requirements Using 1846 kcal/Kg Calculation Used for Recommendations [facility] Additional Notes Protein: 87-145 g/day (1.2-2g/ kg) Fluid: 1ml/kcal or per MD Nutrition Intervention Change Diet Order: Continue TF Nutrition Support: Glucerna 1.2 at 65 ml/hr. Flush 125 ml q4h Kcal 1,872 Protein (gm) 93 Fluid (mL) 1,255 Goal #1 Meet at least 75% of energy and protein needs via TF Goal #2 TF tolerance Anticipated Discharge Needs: Unable to determine at this time Follow-Up By: 01/01/21 Additional Comments F/U for TF tolerance.
[2020-12-28] MEDS: FAMOTIDINE 20 MG TAB PO SCH ×2 (09:32→22:08)
[2020-12-28] MEDS: POLYETHYLENE GLYCOL 3350 17 GM POWDER PO SCH (09:32)
[2020-12-28] MEDS: DOCUSATE SODIUM 100 MG/10 ML ORAL LIQD PO SCH ×2 (09:46→22:08)
[2020-12-28 09:51] LABS: Band Neutrophils # (Manual) 0.3 K/mm3; Myelocytes # (Manual) 0.4 K/mm3; Total Cells Counted 100
[2020-12-28 09:52] LABS: Anisocytosis 1+; Platelet Estimate Consistent w Auto
[2020-12-28] MEDS ORDERED: POTASSIUM CHLORIDE 20 MEQ PACKET FEEDTUBE ONE (10:00)
[2020-12-28] MEDS: DEXTROSE 50% IN WATER (25GM) 50 ML SYRINGE IV PRN (12:18)
--- NOTE | 2020-12-28 14:25 | Progress Note ---
Subjective Principal diagnosis: COVID-19 Interval history: 12/25 chart reviewed discussed w staff see prev notes on pressors, on vent, unresposive sat 88-90 on high peep a/c has 3 chest tubes and sig SQ air cove red w abx on sedation AND 12/28/20 MOF on vent sedated unresponsive Objective - Constitutional Vitals: Vital Signs - 12hr 12/28/20 12/28/20 12/28/20 02:30 02:45 03:00 Temperature Pulse Rate 86 83 82 Pulse Rate [ From Monitor] Respiratory 18 30 H 30 H Rate Blood Pressure 97/56 89/53 97/56 O2 Sat by Pulse 94 99 Oximetry 12/28/20 12/28/20 12/28/20 03:15 03:30 03:46 Temperature Pulse Rate 79 83 78 Pulse Rate [ From Monitor] Respiratory 30 H 30 H 30 H Rate Blood Pressure 92/56 96/58 71/35 O2 Sat by Pulse 99 100 99 Oximetry 12/28/20 12/28/20 12/28/20 03:52 03:55 04:00 Temperature 97.4 F L Pulse Rate 79 79 Pulse Rate [ 79 From Monitor] Respiratory 30 H Rate Blood Pressure 92/56 105/61 O2 Sat by Pulse 99 100 Oximetry 12/28/20 12/28/20 12/28/20 04:15 04:30 04:45 Temperature Pulse Rate 79 81 77 Pulse Rate [ From Monitor] Respiratory 30 H 30 H 25 H Rate Blood Pressure 99/60 104/62 106/56 O2 Sat by Pulse 100 100 99 Oximetry 12/28/20 12/28/20 12/28/20 05:00 05:15 05:30 Temperature Pulse Rate 82 83 81 Pulse Rate [ From Monitor] Respiratory 30 H 30 H 30 H Rate Blood Pressure 105/65 105/65 103/63 O2 Sat by Pulse 99 100 99 Oximetry 12/28/20 12/28/20 12/28/20 05:45 06:00 06:15 Temperature Pulse Rate 81 82 80 Pulse Rate [ From Monitor] Respiratory 30 H 30 H 30 H Rate Blood Pressure 108/60 103/59 106/60 O2 Sat by Pulse 99 99 99 Oximetry 12/28/20 12/28/20 12/28/20 06:30 06:45 07:00 Temperature Pulse Rate 77 77 78 Pulse Rate [ From Monitor] Respiratory 30 H 30 H 30 H Rate Blood Pressure 105/60 104/60 103/61 O2 Sat by Pulse 100 99 100 Oximetry 12/28/20 12/28/20 12/28/20 07:15 07:30 07:45 Temperature Pulse Rate 76 76 77 Pulse Rate [ From Monitor] Respiratory 29 H 30 H 30 H Rate Blood Pressure 106/68 110/63 102/61 O2 Sat by Pulse 98 100 100 Oximetry 12/28/20 12/28/20 12/28/20 08:00 08:13 08:15 Temperature 97.7 F Pulse Rate 79 77 77 Pulse Rate [ 83 From Monitor] Respiratory 30 H 30 H Rate Blood Pressure 103/61 103/61 103/60 O2 Sat by Pulse 100 100 100 Oximetry 12/28/20 12/28/20 12/28/20 08:30 08:45 09:00 Temperature Pulse Rate 82 82 82 Pulse Rate [ From Monitor] Respiratory 30 H 30 H 30 H Rate Blood Pressure 99/58 88/52 105/61 O2 Sat by Pulse 97 99 100 Oximetry 12/28/20 12/28/20 12/28/20 09:15 09:30 09:45 Temperature Pulse Rate 83 83 84 Pulse Rate [ From Monitor] Respiratory 30 H 30 H 30 H Rate Blood Pressure 102/59 105/61 105/55 O2 Sat by Pulse 100 100 99 Oximetry 12/28/20 12/28/20 12/28/20 10:00 10:15 10:30 Temperature Pulse Rate 84 84 83 Pulse Rate [ From Monitor] Respiratory 30 H 30 H 30 H Rate Blood Pressure 102/64 108/58 110/53 O2 Sat by Pulse 99 99 99 Oximetry 12/28/20 12/28/20 12/28/20 10:45 11:00 11:15 Temperature Pulse Rate 83 82 83 Pulse Rate [ From Monitor] Respiratory 30 H 30 H 30 H Rate Blood Pressure 104/61 108/56 104/56 O2 Sat by Pulse 100 99 99 Oximetry 12/28/20 12/28/20 12/28/20 11:30 11:31 11:45 Temperature Pulse Rate 83 83 83 Pulse Rate [ From Monitor] Respiratory 30 H 30 H Rate Blood Pressure 107/62 107/62 102/58 O2 Sat by Pulse 100 100 96 Oximetry 12/28/20 12/28/20 12/28/20 12:00 12:16 12:30 Temperature 98.2 F Pulse Rate 85 81 82 Pulse Rate [ 82 From Monitor] Respiratory 30 H 30 H 29 H Rate Blood Pressure 99/57 102/65 112/64 O2 Sat by Pulse 98 98 99 Oximetry 12/28/20 12/28/20 12/28/20 12:45 13:00 13:16 Temperature Pulse Rate 82 83 93 H Pulse Rate [ From Monitor] Respiratory 30 H 30 H 30 H Rate Blood Pressure 100/58 108/61 71/43 O2 Sat by Pulse 98 99 95 Oximetry 12/28/20 12/28/20 12/28/20 13:30 13:45 14:00 Temperature Pulse Rate 94 H 84 85 Pulse Rate [ From Monitor] Respiratory 30 H 22 30 H Rate Blood Pressure 79/40 90/53 106/63 O2 Sat by Pulse 95 99 99 Oximetry General appearance: Present: other (comatose) - EENT ENT: other (intubated) - Neurologic Neurologic: other (unresponsive) - Labs CBC & Chem 7: 12/28/20 05:45 12/28/20 05:45 Labs: Abnormal lab results 12/27/20 12/27/20 12/27/20 Range/Units 14:09 17:36 22:58 WBC 14.4 H (4.5-11.0) K/mm3 RBC 2.82 L (3.65-5.03) M/mm3 Hgb 8.0 L (11.8-15.2) gm/dl Hct 25.6 L (35.5-45.6) % MCHC 31 L (32-34) % RDW 16.4 H (13.2-15.2) % Plt Count 442 H (140-440) K/mm3 Seg Neuts % (Manual) 36.0 L (40.0-70.0) % Lymphocytes % (Manual) 7.0 L (13.4-35.0) % Nucleated RBC % 18.0 H (0.0-0.9) % Seg Neutrophils # Man (1.8-7.7) K/mm3 Lymphocytes # (Manual) 1.0 L (1.2-5.4) K/mm3 POC ABG pCO2 (32.0-48.0) mmHg POC ABG pO2 (83-108) mmHg ABG Hemoglobin (12.0-17.5) ABG Oxyhemoglobin (94-98) ABG Potassium (3.40-4.50) mmol/L ABG Glucose (65-95) mg/dL Carboxyhemoglobin (0.5-1.5) Potassium (3.6-5.0) mmol/L Carbon Dioxide (22-30) mmol/L Creatinine (0.8-1.3) mg/dL POC Glucose 107 H 130 H (70-105) mg/dL Calcium (8.4-10.2) mg/dL Total Protein (6.3-8.2) g/dL Albumin (3.9-5) g/dL Arterial Blood Glucose (65-95) mg/dL Arterial Blood Ionized Calcium (4.6-5.3) mg/dL 12/28/20 12/28/20 12/28/20 Range/Units 03:48 05:45 05:45 WBC 13.4 H (4.5-11.0) K/mm3 RBC 2.78 L (3.65-5.03) M/mm3 Hgb 7.9 L (11.8-15.2) gm/dl Hct 25.1 L (35.5-45.6) % MCHC (32-34) % RDW 16.4 H (13.2-15.2) % Plt Count 484 H (140-440) K/mm3 Seg Neuts % (Manual) 86.0 H (40.0-70.0) % Lymphocytes % (Manual) 2.0 L (13.4-35.0) % Nucleated RBC % 2.0 H (0.0-0.9) % Seg Neutrophils # Man 11.5 H (1.8-7.7) K/mm3 Lymphocytes # (Manual) 0.3 L (1.2-5.4) K/mm3 POC ABG pCO2 73.1 H (32.0-48.0) mmHg POC ABG pO2 66.2 L (83-108) mmHg ABG Hemoglobin 8.9 L (12.0-17.5) ABG Oxyhemoglobin 90.3 L (94-98) ABG Potassium 3.3 L (3.40-4.50) mmol/L ABG Glucose 107 H (65-95) mg/dL Carboxyhemoglobin 1.6 H (0.5-1.5) Potassium 3.2 L D (3.6-5.0) mmol/L Carbon Dioxide 41 H* (22-30) mmol/L Creatinine 0.3 L (0.8-1.3) mg/dL POC Glucose (70-105) mg/dL Calcium 7.3 L (8.4-10.2) mg/dL Total Protein 6.0 L D (6.3-8.2) g/dL Albumin 1.4 L (3.9-5) g/dL Arterial Blood Glucose 107 H (65-95) mg/dL Arterial Blood Ionized Calcium 4.4 L (4.6-5.3) mg/dL Medications & Allergies - Medications Allergies/Adverse Reactions: Allergies No Known Allergies Allergy (Verified 11/16/20 00:01) Home Medications: Home Medications Medication Instructions Recorded Confirmed Last Taken Type No Known Home Medications [No 11/15/20 11/15/20 Unknown History Reported Home Medications] Active Medications: Generic Name Dose Route Start Last Admin Trade Name Freq PRN Reason Stop Dose Admin Acetaminophen 650 mg 11/15/20 23:55 12/25/20 07:24 Acetaminophen 325 Mg Tab PO 650 mg Q4H PRN Administration Pain MILD(1-3)/Fever >100.5/BUTTS Lipase/Protease/Amylase 1 each 11/23/20 11:53 12/05/20 23:45 Lipase 10,500/Protease 25,000/Amylase 43,750 (Units) Dr Slater FEEDTUBE 1 each PRN PRN Administration For Clogged Feeding Tube Dextrose 25 ml 12/10/20 05:21 12/28/20 12:18 Dextrose 50% In Water (25gm) 50 Ml Syringe IV 10 ml Q30MIN PRN Administration Hypoglycemia Protocol Docusate Sodium 100 mg 12/23/20 10:00 12/28/20 09:46 Docusate Sodium 100 Mg/10 Ml Oral Liqd PO Not Given BID RAEANN Enoxaparin Sodium 40 mg 12/03/20 22:00 12/27/20 21:38 Enoxaparin 40 Mg/0.4 Ml Inj SUB-Q 40 mg QDAY@2200 RAEANN Administration Famotidine 20 mg 12/16/20 10:00 12/28/20 09:32 Famotidine 20 Mg Tab PO 20 mg BID RAEANN Administration Hydrophilic Ointment 1 applic 11/21/20 21:53 11/30/20 21:33 Lip Therapy Vaseline TP 1 applic Q2HR PRN Administration Dry Lips Midazolam HCl 100 mg/ Sodium 100 mls @ 2 mls/hr 11/21/20 22:00 12/27/20 22:48 Chloride IV 5 mg/hr TITR RAEANN 5 mls/hr Administration Protocol 2 MG/HR Propofol 1,000 mg in 100 mls @ 2.175 mls/hr 11/27/20 12:00 12/28/20 06:10 Diprivan 10 Mg/Ml IV 15 mcg/kg/min TITR RAEANN 6.525 mls/hr Administration Protocol 5 MCG/KG/MIN Dexmedetomidine HCl 400 mcg/ 104 mls @ 4.441 mls/hr 12/10/20 13:00 12/28/20 08:48 Sodium Chloride IV 0.7 mcg/kg/hr TITRATE RAEANN 15.543 mls/hr Administration Protocol 0.2 MCG/KG/HR Fentanyl Citrate 2,000 mcg in 100 mls @ 3.9 mls/hr 12/18/20 19:00 12/28/20 08:44 Fentanyl Drip Premix IV 4 mcg/kg/hr TITR RAEANN 15.6 mls/hr Administration Protocol 1 MCG/KG/HR Vasopressin 20 unit/ Sodium 101 mls @ 9.09 mls/hr 12/24/20 18:30 Chloride IV TITR RAEANN Protocol 0.03 UNITS/MIN Piperacillin Sod/Tazobactam Sod 4.5 gm in 100 mls @ 200 mls/hr 12/25/20 12:00 12/28/20 12:17 Zosyn/Ns 4.5gm/100ml IV 200 mls/hr Q6H RAEANN Administration Protocol Norepinephrine 8 mg/ Sodium 250 mls @ 3.75 mls/hr 12/25/20 22:00 12/28/20 07:14 Chloride IV 22 mcg/min TITR RAEANN 41.25 mls/hr Administration Protocol 2 MCG/MIN Insulin Glargine 8 units 12/17/20 13:52 12/27/20 21:39 Insulin Glargine 100 Units/Ml SUB-Q 8 units QHS RAEANN Administration Insulin Human Lispro 0 unit 11/22/20 06:00 12/28/20 12:20 Insulin Lispro 100 Unit/Ml SUB-Q Not Given Q6HR [facility] Protocol Metoclopramide HCl 10 mg 11/15/20 23:55 Metoclopramide 10 Mg/2 Ml Inj IV Q6H PRN Nausea And Vomiting Multi-Ingred Cream/Lotion/Oil/Oint 1 applic 11/21/20 21:53 Mineral Oil/Petrolatum, White Ophth Oint 3.5 Gm OU Q4HR PRN Dry Eye(s) Ondansetron HCl 4 mg 11/15/20 23:55 Ondansetron 4 Mg/2 Ml Inj IV Q8H PRN Nausea And Vomiting Polyethylene Glycol 17 gm 12/23/20 10:00 12/28/20 09:32 Polyethylene Glycol 3350 17 Gm Powder PO 17 gm QDAY RAEANN Administration Senna/Docusate Sodium 2 tab 12/21/20 14:00 12/28/20 06:05 Sennosides/Docusate Sodium 8.6/50 Mg Tab PO 2 tab Q8HR RAEANN Administration Simple Syrup 15 ml 11/23/20 11:53 Simple Syrup 15 Ml FEEDTUBE PRN PRN Hypoglycemia Simple Syrup 30 ml 11/23/20 11:53 Simple Syrup 15 Ml FEEDTUBE PRN PRN Hypoglycemia Sodium Bicarbonate 325 mg 11/23/20 11:53 12/05/20 23:46 Sodium Bicarbonate 325 Mg Tab FEEDTUBE 325 mg PRN PRN Administration For Clogged Feeding Tube Sodium Chloride 10 ml 11/16/20 10:00 12/28/20 09:32 Sodium Chloride 0.9% 10 Ml Flush Syringe IV 10 ml BID RAEANN Administration Sodium Chloride 10 ml 11/15/20 23:55 12/03/20 00:21 Sodium Chloride 0.9% 10 Ml Flush Syringe IV 10 ml PRN PRN Administration LINE FLUSH HEART Score - HEART Score Troponin: Troponin T < 0.010 ng/mL (0.00-0.029) 12/11/20 06:30
--- NOTE | 2020-12-28 15:01 | Progress Note ---
Assessment and Plan Cultures: SARS CoV-2 PCR: positive Blood culture: No growth 11/21/2020 tracheal aspirate culture: MRSA 12/09/2020 blood culture: no growth 12/09/2020 sputum culture: Klebsiella 12/17/2020 blood culture: 1 bottle with coag negative staph, second bottle with Enterococcus faecalis 12/17/2020 tracheal aspirate culture: Usual respiratory zachariah 12/21/2020 blood culture: No growth A/P: 59-year-old male with: #Shock: multifactorial. #GPC bacteremia: source unclear. Typically, Enterococcus is not considered a contaminant, however only present in 1 out of 4 bottles while another set is growing Coag negative Staph. #Bilateral pneumonia: secondary to COVID-19. Completed abx, remdesivir. #Klebsiella on ET aspirate culture: ?colonization v/s true disease, difficult to differentiate. Will treat given development of low-grade temperatures and white count. #B/L pneumothorax and pneumomediastinum: s/p chest tubes. #Acute hypoxic respiratory failure: Remains on the vent. Recs: -continue Zosyn, D4 given persistent shock -extremely poor prognosis, agree with DNR status, recent literature showing mortality of 100% in COVID-19 patients who required CPR Rm Carrillo MD [facility] O: [phone] F: [phone] Subjective Date of service: 12/28/20 Principal diagnosis: COVID-19 Interval history: Afebrile, white count 13.4. Objective - Exam Narrative Exam: Physical exam deferred due to PPE conservation strategy. Please refer to primary team's note. - Constitutional Vitals: Vital Signs Temp Pulse Resp BP Pulse Ox 98.2 F 85 30 H 106/63 99 12/28/20 12:00 12/28/20 14:00 12/28/20 14:00 12/28/20 14:00 12/28/20 14:00 Temperature -Last 24 Hours Temperature 98.2 F Temperature 97.7 F Temperature 97.4 F Temperature 98.4 F Temperature 98.1 F Temperature 97.7 F - Labs CBC & Chem 7: 12/28/20 05:45 12/28/20 05:45 Labs: Abnormal lab results 12/27/20 12/27/20 12/27/20 Range/Units 14:09 17:36 22:58 WBC 14.4 H (4.5-11.0) K/mm3 RBC 2.82 L (3.65-5.03) M/mm3 Hgb 8.0 L (11.8-15.2) gm/dl Hct 25.6 L (35.5-45.6) % MCHC 31 L (32-34) % RDW 16.4 H (13.2-15.2) % Plt Count 442 H (140-440) K/mm3 Seg Neuts % (Manual) 36.0 L (40.0-70.0) % Lymphocytes % (Manual) 7.0 L (13.4-35.0) % Nucleated RBC % 18.0 H (0.0-0.9) % Seg Neutrophils # Man (1.8-7.7) K/mm3 Lymphocytes # (Manual) 1.0 L (1.2-5.4) K/mm3 POC ABG pCO2 (32.0-48.0) mmHg POC ABG pO2 (83-108) mmHg ABG Hemoglobin (12.0-17.5) ABG Oxyhemoglobin (94-98) ABG Potassium (3.40-4.50) mmol/L ABG Glucose (65-95) mg/dL Carboxyhemoglobin (0.5-1.5) Potassium (3.6-5.0) mmol/L Carbon Dioxide (22-30) mmol/L Creatinine (0.8-1.3) mg/dL POC Glucose 107 H 130 H (70-105) mg/dL Calcium (8.4-10.2) mg/dL Total Protein (6.3-8.2) g/dL Albumin (3.9-5) g/dL Arterial Blood Glucose (65-95) mg/dL Arterial Blood Ionized Calcium (4.6-5.3) mg/dL 12/28/20 12/28/20 12/28/20 Range/Units 03:48 05:45 05:45 WBC 13.4 H (4.5-11.0) K/mm3 RBC 2.78 L (3.65-5.03) M/mm3 Hgb 7.9 L (11.8-15.2) gm/dl Hct 25.1 L (35.5-45.6) % MCHC (32-34) % RDW 16.4 H (13.2-15.2) % Plt Count 484 H (140-440) K/mm3 Seg Neuts % (Manual) 86.0 H (40.0-70.0) % Lymphocytes % (Manual) 2.0 L (13.4-35.0) % Nucleated RBC % 2.0 H (0.0-0.9) % Seg Neutrophils # Man 11.5 H (1.8-7.7) K/mm3 Lymphocytes # (Manual) 0.3 L (1.2-5.4) K/mm3 POC ABG pCO2 73.1 H (32.0-48.0) mmHg POC ABG pO2 66.2 L (83-108) mmHg ABG Hemoglobin 8.9 L (12.0-17.5) ABG Oxyhemoglobin 90.3 L (94-98) ABG Potassium 3.3 L (3.40-4.50) mmol/L ABG Glucose 107 H (65-95) mg/dL Carboxyhemoglobin 1.6 H (0.5-1.5) Potassium 3.2 L D (3.6-5.0) mmol/L Carbon Dioxide 41 H* (22-30) mmol/L Creatinine 0.3 L (0.8-1.3) mg/dL POC Glucose (70-105) mg/dL Calcium 7.3 L (8.4-10.2) mg/dL Total Protein 6.0 L D (6.3-8.2) g/dL Albumin 1.4 L (3.9-5) g/dL Arterial Blood Glucose 107 H (65-95) mg/dL Arterial Blood Ionized Calcium 4.4 L (4.6-5.3) mg/dL
[2020-12-28] MEDS: MIDAZOLAM 100 MG in SODIUM CHLORIDE 0.9% 80 ML IV SCH (17:46)
[2020-12-28] MEDS: ENOXAPARIN 40 MG/0.4 ML INJ SUB-Q SCH (22:08)
[2020-12-28] MEDS: INSULIN GLARGINE 100 UNITS/ML SUB-Q SCH (22:50)
[2020-12-29] MEDS: INSULIN LISPRO 100 UNIT/ML SUB-Q SCH ×4 (00:31→19:13)
[2020-12-29] MEDS: NORepinephrine 8 MG in SODIUM CHLORIDE 0.9% 250ML 242 ML IV SCH ×5 (01:21→23:24)
[2020-12-29] MEDS: fentaNYL DRIP Premix 2,000 MCG/100 ML BAG IV SCH ×4 (03:58→21:14)
[2020-12-29] MEDS: PIPERACIL/TAZOBACTA 4.5/NS 100 4.5 GM/100 ML VIAL IV SCH ×4 (05:12→23:56)
[2020-12-29] MEDS: SENNOSIDES/DOCUSATE SODIUM 8.6/50 MG TAB PO SCH ×3 (05:12→21:08)
[2020-12-29 05:58] LABS: Hematocrit 25.3 % (35.5-45.6); Mean Corpuscular HGB Conc 32 % (32-34); Mean Corpuscular Volume 90 fl (84-94); Platelet Count 486 K/mm3 (140-440); Red Cell Distribution Width 17.1 % (13.2-15.2)
[2020-12-29 06:06] LABS: Alanine Aminotransferase 21 units/L (7-56); Albumin 1.5 g/dL (3.9-5); Blood Urea Nitrogen 16 mg/dL (9-20); Calcium 7.5 mg/dL (8.4-10.2); Hemolysis Index 2
[2020-12-29 06:15] LABS: BUN/Creatinine Ratio 53
[2020-12-29 07:12] LABS: Anisocytosis 1+; Total Cells Counted 100
[2020-12-29 07:13] LABS: Platelet Estimate Consistent w Auto
[2020-12-29] MEDS: POLYETHYLENE GLYCOL 3350 17 GM POWDER PO SCH (09:07)
[2020-12-29] MEDS: FAMOTIDINE 20 MG TAB PO SCH ×2 (09:07→21:08)
[2020-12-29] MEDS: DOCUSATE SODIUM 100 MG/10 ML ORAL LIQD PO SCH ×2 (09:07→21:08)
--- NOTE | 2020-12-29 11:24 | Progress Note ---
Assessment and Plan 59 y/o male with acute respiratory failure, abnormal CXR and abnormal lab studies. 12/29/20: Continue supporitve measures. Continue sedation and vasopressor support. Chest tubes will remain until patient is extubated if able to do so. Prognosis is very very guarded. 12/27/20: Continue supportive measures. Continue sedation and vasopressor support. Chest tubes remain until extubated if able to do so. Very very guarded prognosis. 12/26/20: Very very poor prognosis given prolong time of hypoxemia during the events from and continued hypoxemia despite 100%. PTX's and recurrent PTX's have been very common with this current wave of COVID 19 so not entirely unexpected. Appreciate surgery help with second chest tube. Will Strip tubes again tomorrow morning. COntinue sedation and vasopressor support. Very very poor prognosis. Please do not give any further lasix, as the changes seen are not edema related. 12/24/20: If patient spikes again in the next 24 hours, please reculture urine and blood. In regards to cuff, as long as patient is not losing volumes, no indication to change tube out as of yet. Will continue to monitor. Continue abx as ID recs. Attempt to wean back down again but unfortunately this has been an ongoing issue for this patient. Continue pressors to help achieve adequate sedation for vent management. Prognosis remains guarded. 12/23/20: Continue current level of sedation. Wean parameters as listed below. appreciate ID recs and help. 12/22/20: Continue current level of sedation. Ok to wean FiO2 for sats >88% and PaO2>55mmHg. Follow up ID recs in regards to abx therapy. Prognosis unfortunately still remains guarded. 12/21/20: Back up to 100%. Peep is the same chest tubes intact. Long discussion on rounds, will restart Diprovan to obtain adequate sedation (RASS of -4). Ok to titrate pressors to achieve adequate sedation if blood pressure is compromised by sedatives. Prognosis remains guarded. Awaiting speciation of other cultures. 12/18/20: Still on 75% and 18 of PEEP. Follow up cultures, Blood pending, urine has not resulted yet. Had another temp at 20:00 last night. CXR looks more like pulmonary edema but not in a position to diurese at this time as he occasionally requires vasopressor support given the amount of sedation needed to achieve a RASS of 4. If he continues to spike, would consider hospital acquired coverage of abx therapy. Prognosis remains guarded. 12/17/20: Back down to 75%. Febrile last night, if and when spikes again today, please obtain blood cultures times 2 and urine. Will go ahead and order repeat CXR now. Prognosis still remains guarded. 12/16/20: Back up to 100%. Once stabilized will attempt to wean back down. ABG in the am and may need to consider repeat ABG later this afternoon pending clinical state. Unable to prone given bilateral chest tubes. Prognosis remains guarded to poor. 12/15/20: Tolerating weaning from yesterday. RT to attempt to wean some more today. Kidney function remains unchanged. Guarded prognosis. 12/14/20: Unable to wean FiO2 today. Continue supportive measures. Great that his kidney function has maintained but given the amount of oxygen he continues to require, his chances of recovery continue to decrease. Family aware and will up date them as needed. Very very guarded prognosis. 12/13/20: WIll start Weaning FiO2 again tomorrow morning of PaO2 remains this good. Continue all other supportive measures. Guarded prognosis. Monitor ines al function closely. 12/12/20: Long discussion with brother at door. Patient remains full code which is not unreasonable but family is realistic about outcome being poor. Will continue all supportive measures. IF clinical state worsens, will ask family to come back to see patient. Guarded Prognosis. 12/11/20: Will attempt to wean Diprovan off and increase precedex. Triglycerides were ok. IF we have to support with pressors we will but I have asked nursing to please be detailed in their checkouts as to why they did certain things with the continuous drips. Continue supportive measures. Brother is going to try to come and see him from [place] 12/10/20: No acute events overnight. Patient has had waxing and waning of the amount of oxygen he has required over the last 24-72 hours. I have a bad feeling that he is on the brink of cardiac arrest and this could happen at any moment. I am going to reach out to the brother today to explain to him my concerns. Patient is a full code. Very very guarded prognosis. 12/09/20: Repeat ABG later today. Wean FiO2 for sats >88%. Repeat CXR as well. With BP dropping could be relative adrenal insufficiency, will watch for now, however if pressor requirement increases would consider stress dose steroids and maybe volume replacement. Follow up cultures. Guarded prognosis. 12/08/20: Increase TV to 425. Drop FiO2 to 65% and wean for sats >88%. COntinue chest tubes. Change steroids to 20q12. 12/07/20: CXR is stable, no indication for another chest tube at this time. Will repeat ABG in 1 hour post change to 70% and wean accordingly. Dropping steroids to 20q8. Guarded prognosis. Same weaning parameters apply today as of 12/04/20 12/04/20: Continue to wean steroids to off. Continue to wean FiO2 for sats >88%. Keep PEEP at current level, would not feel comfortable weaning PEEP until FiO2 at 35-40%. Continue chest tubes to suction. PaO2 of >55, pH of >7.2 and sats >88% are acceptable. : Dropped steroids down to 40q8 and will start to wean from there. Continue to slowly wean FiO2 first, keep PEEP at current level. Spoke with Kehinde, please see my event note, who is the biological brother. He had no q uestions but thanked us for our care. Prognosis remains very very guarded. PaO2 of 55 and pH of >7.2 and sats of >88% are all acceptable. 12/02/20: Wean FiO2 for sats >88% and PaO2 >55. Unable to prone currently secondary to bilateral chest tubes. COntinue high dose steroids. CM To figure out who is the immediate next of kin that can make decisions and then we will d iscuss the current clinical situation with them. 12/01/20: Continue PEEP and FiO2 elevated to keep sats >88% and PaO2 >55. Small lung volumes and high PEEP. very very guarded prognosis. 11/30/20: Worsening hypoxemia. Chest tubes stable. Likely just worsening disease. Unable to prone now. Increase PEEP to 18 and FiO2 back up to 100. Continue 3 sedatives for RASS of -2. Obtain 12 lead to look at T waves as K was only 4.6 on yesterday. Guarded, guarded prognosis 11/29/20: Second chest tube in on yesterday. CXR is stable. ABG unchanged. Will likely increase PEEP now that chest tubes are in. No further paralytics. Still making good urine. Prognosis remains guarded. Will check chemistry to assess Potassium levels given peaked t's seen on monitor. 11/28/20: Second chest tube today. Once chest tube in, will likely increase PEEP to 18 and repeat gas about 2 hours after this. Continue paralytic today. No proning now that patient will have bilateral chest tubes. VEry guarded prognosis. 11/27/20: Spoke with surgery who have agreed to evaluate and placed chest tube on either right or left side pending CXR reading. Will monitor for 36-48 hours and if no resolution, will need chest tube placed on opposite side as well. Once placed, will likely paralyze again but hold on proning for now. Guarded prognosis. 11/26/20: Paralytics are off. Continue current level of sedation. Will prone for 12 hours today and repeat ABG in the am. Continue lung protective strategy. Guarded prognosis. 11/25/20: Prone again to 16 hours, will prone at 12-12:30. Continue paralytics for 24 more hours. Discussed the idea of permissive hypercapnea again today and as long as pH is above 7.2 no changes should be made to TV and or RR without discussing with physician. Continue to monitor urine output, guarded prognosis. Hold on lasix therapy today. 11/24/20: Prone again today. Will try 48 hours of paralyzing the patient to see if this will help with oxygenation. Will speak with RT's about permissive hypercapnea and that pH's of 7.2 and greater are ok. Continue high doses steroids. Prognosis is still very very guarded. If not improvement with paralytics, will attempt transfer. 11/23/20: Prone again today for 12 hours. Continue High Dose steroids. Hold on lasix given marginal BP's. Prognosis is very very guarded to poor. Will continue all supportive measures. If not able to wean from 100%, will attempt transfer for ECMO. 1. Pulm- Agree with concern for covid. Agree with empiric abx but procal is only mildly elevated. Await cultures. Continue bipap therapy for now but will need to monitor closely. [facility] has ordered CTA, but I spoke with pharmacy and we will empirically treat with BID lovenox therapy. COntinue empiric steroid therapy for COVID until studies back. Not sure that he will be able to prone on bipap therapy. Monitor volume status and run as dry as possible. 2. Renal-normal function but all electrolytes abnormal. HYponatremia and Hypochloremia volume up vs volume down. Sent BNP. Would suggest obtaning echo as well. Not sure what to make of elevated lactate unless that is from increased work of breathing or damage to other tissue unknown. May need to check LFT's and Coags as well. 3. Guarded Prognosis. CCT 31 minutes. Subjective Date of service: 12/29/20 Principal diagnosis: COVID-19 Interval history: No acute events. Down to 90% now. Still with good urine function. Objective Vital Signs - 12hr 12/28/20 12/28/20 12/28/20 23:30 23:43 23:45 Temperature Pulse Rate 82 83 82 Pulse Rate [ From Monitor] Respiratory 30 H 29 H 30 H Rate Blood Pressure 113/64 113/64 115/62 O2 Sat by Pulse 99 98 98 Oximetry 12/28/20 12/29/20 12/29/20 23:49 00:00 00:06 Temperature 98.8 F Pulse Rate 82 83 81 Pulse Rate [ 83 From Monitor] Respiratory 30 H 30 H Rate Blood Pressure 115/62 105/55 115/68 O2 Sat by Pulse 98 98 98 Oximetry 12/29/20 12/29/20 12/29/20 00:15 00:30 00:45 Temperature Pulse Rate 83 83 81 Pulse Rate [ From Monitor] Respiratory 30 H 20 30 H Rate Blood Pressure 110/60 115/68 112/64 O2 Sat by Pulse 98 99 99 Oximetry 12/29/20 12/29/20 12/29/20 01:00 01:15 01:30 Temperature Pulse Rate 82 80 79 Pulse Rate [ From Monitor] Respiratory 30 H 30 H 30 H Rate Blood Pressure 107/59 115/63 123/71 O2 Sat by Pulse 98 99 99 Oximetry 12/29/20 12/29/20 12/29/20 01:45 02:00 02:15 Temperature Pulse Rate 80 81 81 Pulse Rate [ From Monitor] Respiratory 30 H 30 H 30 H Rate Blood Pressure 115/61 115/62 115/63 O2 Sat by Pulse 99 99 99 Oximetry 12/29/20 12/29/20 12/29/20 02:30 02:45 03:00 Temperature Pulse Rate 80 81 79 Pulse Rate [ From Monitor] Respiratory 30 H 30 H 30 H Rate Blood Pressure 110/63 117/65 124/68 O2 Sat by Pulse 99 99 99 Oximetry 12/29/20 12/29/20 12/29/20 03:15 03:30 03:45 Temperature Pulse Rate 80 80 80 Pulse Rate [ From Monitor] Respiratory 30 H 30 H 30 H Rate Blood Pressure 114/62 118/69 116/65 O2 Sat by Pulse 99 99 99 Oximetry 12/29/20 12/29/20 12/29/20 04:00 04:01 04:15 Temperature 98.2 F Pulse Rate 79 80 81 Pulse Rate [ 80 From Monitor] Respiratory 30 H 30 H Rate Blood Pressure 119/61 119/61 120/61 O2 Sat by Pulse 99 98 99 Oximetry 12/29/20 12/29/20 12/29/20 04:30 04:45 05:00 Temperature Pulse Rate 80 79 79 Pulse Rate [ From Monitor] Respiratory 30 H 30 H 30 H Rate Blood Pressure 114/67 112/63 110/65 O2 Sat by Pulse 99 99 99 Oximetry 12/29/20 12/29/20 12/29/20 05:15 05:30 05:45 Temperature Pulse Rate 78 78 79 Pulse Rate [ From Monitor] Respiratory 30 H 21 30 H Rate Blood Pressure 121/66 118/67 119/62 O2 Sat by Pulse 99 99 99 Oximetry 12/29/20 12/29/20 12/29/20 06:00 06:15 06:30 Temperature Pulse Rate 76 79 78 Pulse Rate [ From Monitor] Respiratory 30 H 30 H 30 H Rate Blood Pressure 113/65 113/59 113/59 O2 Sat by Pulse 99 99 98 Oximetry 12/29/20 12/29/20 12/29/20 06:45 07:00 07:15 Temperature Pulse Rate 78 78 78 Pulse Rate [ From Monitor] Respiratory 30 H 30 H 30 H Rate Blood Pressure 118/69 110/60 111/62 O2 Sat by Pulse 99 99 99 Oximetry 12/29/20 12/29/20 12/29/20 07:30 07:45 08:00 Temperature 97.9 F Pulse Rate 79 80 77 Pulse Rate [ 78 From Monitor] Respiratory 30 H 30 H 30 H Rate Blood Pressure 106/56 108/64 109/63 O2 Sat by Pulse 99 99 100 Oximetry 12/29/20 12/29/20 12/29/20 08:15 08:30 08:45 Temperature Pulse Rate 77 76 76 Pulse Rate [ From Monitor] Respiratory 30 H 30 H 30 H Rate Blood Pressure 107/58 111/65 113/61 O2 Sat by Pulse 100 100 100 Oximetry 12/29/20 12/29/20 12/29/20 08:52 09:01 09:15 Temperature Pulse Rate 80 77 Pulse Rate [ From Monitor] Respiratory 30 H 30 H Rate Blood Pressure 113/61 85/47 121/68 O2 Sat by Pulse 92 90 100 Oximetry 12/29/20 12/29/20 09:30 09:45 Temperature Pulse Rate 77 79 Pulse Rate [ From Monitor] Respiratory 30 H 30 H Rate Blood Pressure 114/67 113/64 O2 Sat by Pulse 100 100 Oximetry Constitutional: lethargic, comatose, other (on vent orally intubated) ENT: other (Now intubated) Effort: other (vent support ) Ascultation: Bilateral: diminished breath sounds, rales, rhonchi, other (coarse BS bilaterally) Percussion: Bilateral: not dull Cardiovascular: regular rate and rhythm (tachy ) Gastrointestinal: soft, non-tender, non-distended Integumentary: normal Extremities: no cyanosis, no edema, pink and warm Neurologic: other (sedated) Psychiatric: other (sedated) CBC and BMP: 12/29/20 04:00 12/29/20 04:00 ABG, PT/INR, D-dimer: ABG ABG pH 7.319 (7.320-7.450) L 12/29/20 04:00 POC ABG pCO2 71.0 mmHg (32.0-48.0) H 12/29/20 04:00 ABG pCO2 81.3 mm Hg 12/08/20 04:12 POC ABG pO2 65.2 mmHg (83-108) L 12/29/20 04:00 ABG pO2 69.7 mm Hg (80.0-90.0) L 12/08/20 04:12 POC ABG HCO3 35.7 12/29/20 04:00 ABG O2 Saturation 90.9 (0-100) 12/29/20 04:00 PT/INR, D-dimer D-Dimer 926.11 ng/mlDDU (0-234) H 11/26/20 06:04 Abnormal lab findings: Abnormal Labs 11/15/20 11/15/20 11/15/20 10:39 10:39 10:39 WBC 14.3 H RBC 5.17 H Hgb Hct MCHC RDW Plt Count Lymph % (Auto) 7.8 L Edwards % (Auto) 7.6 H Lymph # (Auto) 1.1 L Edwards # (Auto) 1.1 H Baso # (Auto) Seg Neutrophils % 83.3 H Seg Neuts % (Manual) Lymphocytes % (Manual) Nucleated RBC % Seg Neutrophils # 11.9 H Seg Neutrophils # Man Lymphocytes # (Manual) D-Dimer ABG pH POC ABG pCO2 POC ABG pO2 ABG pO2 ABG HCO3 ABG O2 Saturation ABG Base Excess ABG Hemoglobin ABG Oxyhemoglobin ABG Sodium ABG Potassium ABG Chloride ABG Glucose Oxyhemoglobin Carboxyhemoglobin Sodium 128 L Potassium Chloride 96.0 L Carbon Dioxide BUN Creatinine 0.7 L Glucose 238 H POC Glucose Hemoglobin A1c Lactic Acid 4.10 H* Calcium 7.0 L Magnesium Ferritin Total Bilirubin 1.40 H AST 49 H ALT 70 H Alkaline Phosphatase Lactate Dehydrogenase 663 H Total Creatine Kinase C-Reactive Protein 19.80 H Total Protein Albumin 2.9 L Triglycerides Arterial Blood Glucose Arterial Blood Ionized Calcium Ur Specific [place] Urine WBC (Auto) Vancomycin Trough Coronavirus (PCR) 11/15/20 11/15/20 11/15/20 10:39 10:39 11:20 WBC RBC Hgb Hct MCHC RDW Plt Count Lymph % (Auto) Edwards % (Auto) Lymph # (Auto) Edwards # (Auto) Baso # (Auto) Seg Neutrophils % Seg Neuts % (Manual) Lymphocytes % (Manual) Nucleated RBC % Seg Neutrophils # Seg Neutrophils # Man Lymphocytes # (Manual) D-Dimer > 53608 H ABG pH POC ABG pCO2 29.9 L POC ABG pO2 137.3 H ABG pO2 ABG HCO3 ABG O2 Saturation ABG Base Excess ABG Hemoglobin ABG Oxyhemoglobin ABG Sodium 126.5 L ABG Potassium ABG Chloride ABG Glucose 248 H Oxyhemoglobin Carboxyhemoglobin Sodium Potassium Chloride Carbon Dioxide BUN Creatinine Glucose POC Glucose Hemoglobin A1c Lactic Acid Calcium Magnesium Ferritin 672.8 H Total Bilirubin AST ALT Alkaline Phosphatase Lactate Dehydrogenase Total Creatine Kinase C-Reactive Protein Total Protein Albumin Triglycerides Arterial Blood Glucose 248 H Arterial Blood Ionized Calcium 4.1 L Ur Specific [place] Urine WBC (Auto) Vancomycin Trough Coronavirus (PCR) 11/15/20 11/15/20 11/16/20 13:41 23:41 01:45 WBC RBC Hgb Hct MCHC RDW Plt Count Lymph % (Auto) Edwards % (Auto) Lymph # (Auto) Edwards # (Auto) Baso # (Auto) Seg Neutrophils % Seg Neuts % (Manual) Lymphocytes % (Manual) Nucleated RBC % Seg Neutrophils # Seg Neutrophils # Man Lymphocytes # (Manual) D-Dimer ABG pH POC ABG pCO2 POC ABG pO2 ABG pO2 ABG HCO3 ABG O2 Saturation ABG Base Excess ABG Hemoglobin ABG Oxyhemoglobin ABG Sodium ABG Potassium ABG Chloride ABG Glucose Oxyhemoglobin Carboxyhemoglobin Sodium Potassium Chloride Carbon Dioxide BUN Creatinine Glucose POC Glucose 284 H Hemoglobin A1c Lactic Acid 2.30 H* Calcium Magnesium Ferritin Total Bilirubin AST ALT Alkaline Phosphatase Lactate Dehydrogenase Total Creatine Kinase C-Reactive Protein Total Protein Albumin Triglycerides Arterial Blood Glucose Arterial Blood Ionized Calcium Ur Specific [place] 1.037 H Urine WBC (Auto) Vancomycin Trough Coronavirus (PCR) 11/16/20 11/16/20 11/16/20 05:29 05:29 05:29 WBC 12.9 H RBC Hgb Hct MCHC RDW Plt Count Lymph % (Auto) 4.5 L Edwards % (Auto) Lymph # (Auto) 0.6 L Edwards # (Auto) Baso # (Auto) 0.2 H Seg Neutrophils % 89.8 H Seg Neuts % (Manual) Lymphocytes % (Manual) Nucleated RBC % Seg Neutrophils # 11.5 H Seg Neutrophils # Man Lymphocytes # (Manual) D-Dimer ABG pH POC ABG pCO2 POC ABG pO2 ABG pO2 ABG HCO3 ABG O2 Saturation ABG Base Excess ABG Hemoglobin ABG Oxyhemoglobin ABG Sodium ABG Potassium ABG Chloride ABG Glucose Oxyhemoglobin Carboxyhemoglobin Sodium 131 L Potassium Chloride Carbon Dioxide 21 L BUN 23 H Creatinine 0.6 L Glucose 342 H POC Glucose Hemoglobin A1c Lactic Acid 2.60 H* Calcium 7.0 L Magnesium Ferritin Total Bilirubin AST ALT Alkaline Phosphatase Lactate Dehydrogenase Total Creatine Kinase C-Reactive Protein Total Protein Albumin 2.4 L Triglycerides Arterial Blood Glucose Arterial Blood Ionized Calcium Ur Specific [place] Urine WBC (Auto) Vancomycin Trough Coronavirus (PCR) 11/16/20 11/16/20 11/16/20 05:29 08:11 12:11 WBC RBC Hgb Hct MCHC RDW Plt Count Lymph % (Auto) [place] % (Auto) Lymph # (Auto) [place] # (Auto) Baso # (Auto) Seg Neutrophils % Seg Neuts % (Manual) Lymphocytes % (Manual) Nucleated RBC % Seg Neutrophils # Seg Neutrophils # Man Lymphocytes # (Manual) D-Dimer ABG pH POC ABG pCO2 POC ABG pO2 ABG pO2 ABG HCO3 ABG O2 Saturation ABG Base Excess ABG Hemoglobin ABG Oxyhemoglobin ABG Sodium ABG Potassium ABG Chloride ABG Glucose Oxyhemoglobin Carboxyhemoglobin Sodium Potassium Chloride Carbon Dioxide BUN Creatinine Glucose POC Glucose 329 H 320 H Hemoglobin A1c 11.7 H Lactic Acid Calcium Magnesium Ferritin Total Bilirubin AST ALT Alkaline Phosphatase Lactate Dehydrogenase Total Creatine Kinase C-Reactive Protein Total Protein Albumin Triglycerides Arterial Blood Glucose Arterial Blood Ionized Calcium Ur Specific [place] Urine WBC (Auto) Vancomycin Trough Coronavirus (PCR) 11/16/20 11/16/20 11/16/20 16:13 21:29 Unknown WBC RBC Hgb Hct MCHC RDW Plt Count Lymph % (Auto) [place] % (Auto) Lymph # (Auto) Edwards # (Auto) Baso # (Auto) Seg Neutrophils % Seg Neuts % (Manual) Lymphocytes % (Manual) Nucleated RBC % Seg Neutrophils # Seg Neutrophils # Man Lymphocytes # (Manual) D-Dimer ABG pH POC ABG pCO2 POC ABG pO2 ABG pO2 ABG HCO3 ABG O2 Saturation ABG Base Excess ABG Hemoglobin ABG Oxyhemoglobin ABG Sodium ABG Potassium ABG Chloride ABG Glucose Oxyhemoglobin Carboxyhemoglobin Sodium Potassium Chloride Carbon Dioxide BUN Creatinine Glucose POC Glucose 257 H 376 H Hemoglobin A1c Lactic Acid Calcium Magnesium Ferritin Total Bilirubin AST ALT Alkaline Phosphatase Lactate Dehydrogenase Total Creatine Kinase C-Reactive Protein Total Protein Albumin Triglycerides Arterial Blood Glucose Arterial Blood Ionized Calcium Ur Specific [place] Urine WBC (Auto) Vancomycin Trough Coronavirus (PCR) Positive A 11/17/20 11/17/20 11/17/20 07:42 12:07 17:25 WBC RBC Hgb Hct MCHC RDW Plt Count Lymph % (Auto) [place] % (Auto) Lymph # (Auto) [place] # (Auto) Baso # (Auto) Seg Neutrophils % Seg Neuts % (Manual) Lymphocytes % (Manual) Nucleated RBC % Seg Neutrophils # Seg Neutrophils # Man Lymphocytes # (Manual) D-Dimer ABG pH POC ABG pCO2 POC ABG pO2 ABG pO2 ABG HCO3 ABG O2 Saturation ABG Base Excess ABG Hemoglobin ABG Oxyhemoglobin ABG Sodium ABG Potassium ABG Chloride ABG Glucose Oxyhemoglobin Carboxyhemoglobin Sodium Potassium Chloride Carbon Dioxide BUN Creatinine Glucose POC Glucose 231 H 380 H 302 H Hemoglobin A1c Lactic Acid Calcium Magnesium Ferritin Total Bilirubin AST ALT Alkaline Phosphatase Lactate Dehydrogenase Total Creatine Kinase C-Reactive Protein Total Protein Albumin Triglycerides Arterial Blood Glucose Arterial Blood Ionized Calcium Ur Specific [place] Urine WBC (Auto) Vancomycin Trough Coronavirus (PCR) 11/17/20 11/18/20 11/18/20 21:53 04:25 07:45 WBC RBC Hgb Hct MCHC RDW Plt Count Lymph % (Auto) [place] % (Auto) Lymph # (Auto) [place] # (Auto) Baso # (Auto) Seg Neutrophils % Seg Neuts % (Manual) Lymphocytes % (Manual) Nucleated RBC % Seg Neutrophils # Seg Neutrophils # Man Lymphocytes # (Manual) D-Dimer ABG pH POC ABG pCO2 POC ABG pO2 ABG pO2 ABG HCO3 ABG O2 Saturation ABG Base Excess ABG Hemoglobin ABG Oxyhemoglobin ABG Sodium ABG Potassium ABG Chloride ABG Glucose Oxyhemoglobin Carboxyhemoglobin Sodium 136 L Potassium Chloride Carbon Dioxide BUN 24 H Creatinine 0.6 L Glucose 212 H POC Glucose 293 H 216 H Hemoglobin A1c Lactic Acid Calcium 7.4 L Magnesium Ferritin Total Bilirubin AST 41 H ALT Alkaline Phosphatase 142 H Lactate Dehydrogenase Total Creatine Kinase C-Reactive Protein Total Protein Albumin 2.3 L Triglycerides Arterial Blood Glucose Arterial Blood Ionized Calcium Ur Specific [place] Urine WBC (Auto) Vancomycin Trough Coronavirus (PCR) 11/18/20 11/18/20 11/18/20 12:28 15:58 21:37 WBC RBC Hgb Hct MCHC RDW Plt Count Lymph % (Auto) [place] % (Auto) Lymph # (Auto) [place] # (Auto) Baso # (Auto) Seg Neutrophils % Seg Neuts % (Manual) Lymphocytes % (Manual) Nucleated RBC % Seg Neutrophils # Seg Neutrophils # Man Lymphocytes # (Manual) D-Dimer ABG pH POC ABG pCO2 POC ABG pO2 ABG pO2 ABG HCO3 ABG O2 Saturation ABG Base Excess ABG Hemoglobin ABG Oxyhemoglobin ABG Sodium ABG Potassium ABG Chloride ABG Glucose Oxyhemoglobin Carboxyhemoglobin Sodium Potassium Chloride Carbon Dioxide BUN Creatinine Glucose POC Glucose 165 H 220 H 311 H Hemoglobin A1c Lactic Acid Calcium Magnesium Ferritin Total Bilirubin AST ALT Alkaline Phosphatase Lactate Dehydrogenase Total Creatine Kinase C-Reactive Protein Total Protein Albumin Triglycerides Arterial Blood Glucose Arterial Blood Ionized Calcium Ur Specific [place] Urine WBC (Auto) Vancomycin Trough Coronavirus (PCR) 11/19/20 11/19/20 11/19/20 05:35 07:40 12:39 WBC RBC Hgb Hct MCHC RDW Plt Count Lymph % (Auto) [place] % (Auto) Lymph # (Auto) [place] # (Auto) Baso # (Auto) Seg Neutrophils % Seg Neuts % (Manual) Lymphocytes % (Manual) Nucleated RBC % Seg Neutrophils # Seg Neutrophils # Man Lymphocytes # (Manual) D-Dimer ABG pH POC ABG pCO2 POC ABG pO2 ABG pO2 ABG HCO3 ABG O2 Saturation ABG Base Excess ABG Hemoglobin ABG Oxyhemoglobin ABG Sodium ABG Potassium ABG Chloride ABG Glucose Oxyhemoglobin Carboxyhemoglobin Sodium 132 L Potassium Chloride Carbon Dioxide BUN 25 H Creatinine 0.5 L Glucose 179 H POC Glucose 149 H 306 H Hemoglobin A1c Lactic Acid Calcium 7.5 L Magnesium Ferritin Total Bilirubin AST ALT Alkaline Phosphatase 139 H Lactate Dehydrogenase Total Creatine Kinase C-Reactive Protein Total Protein Albumin 2.4 L Triglycerides Arterial Blood Glucose Arterial Blood Ionized Calcium Ur Specific [place] Urine WBC (Auto) Vancomycin Trough Coronavirus (PCR) 11/19/20 11/19/20 11/20/20 16:17 21:25 08:30 WBC RBC Hgb Hct MCHC RDW Plt Count Lymph % (Auto) [place] % (Auto) Lymph # (Auto) [place] # (Auto) Baso # (Auto) Seg Neutrophils % Seg Neuts % (Manual) Lymphocytes % (Manual) Nucleated RBC % Seg Neutrophils # Seg Neutrophils # Man Lymphocytes # (Manual) D-Dimer ABG pH POC ABG pCO2 POC ABG pO2 ABG pO2 ABG HCO3 ABG O2 Saturation ABG Base Excess ABG Hemoglobin ABG Oxyhemoglobin ABG Sodium ABG Potassium ABG Chloride ABG Glucose Oxyhemoglobin Carboxyhemoglobin Sodium Potassium Chloride Carbon Dioxide BUN Creatinine Glucose POC Glucose 364 H 347 H 141 H Hemoglobin A1c Lactic Acid Calcium Magnesium Ferritin Total Bilirubin AST ALT Alkaline Phosphatase Lactate Dehydrogenase Total Creatine Kinase C-Reactive Protein Total Protein Albumin Triglycerides Arterial Blood Glucose Arterial Blood Ionized Calcium Ur Specific [place] Urine WBC (Auto) Vancomycin Trough Coronavirus (PCR) 11/20/20 11/20/20 11/20/20 08:50 11:32 16:19 WBC RBC Hgb Hct MCHC RDW Plt Count Lymph % (Auto) [place] % (Auto) Lymph # (Auto) [place] # (Auto) Baso # (Auto) Seg Neutrophils % Seg Neuts % (Manual) Lymphocytes % (Manual) Nucleated RBC % Seg Neutrophils # Seg Neutrophils # Man Lymphocytes # (Manual) D-Dimer ABG pH POC ABG pCO2 POC ABG pO2 ABG pO2 ABG HCO3 ABG O2 Saturation ABG Base Excess ABG Hemoglobin ABG Oxyhemoglobin ABG Sodium ABG Potassium ABG Chloride ABG Glucose Oxyhemoglobin Carboxyhemoglobin Sodium 132 L Potassium Chloride 97.6 L Carbon Dioxide BUN 26 H Creatinine 0.5 L Glucose 201 H POC Glucose 296 H 327 H Hemoglobin A1c Lactic Acid Calcium 7.9 L Magnesium Ferritin Total Bilirubin AST ALT Alkaline Phosphatase 137 H Lactate Dehydrogenase Total Creatine Kinase C-Reactive Protein Total Protein Albumin 2.6 L Triglycerides Arterial Blood Glucose Arterial Blood Ionized Calcium Ur Specific [place] Urine WBC (Auto) Vancomycin Trough Coronavirus (PCR) 11/20/20 11/21/20 11/21/20 22:09 07:59 13:51 WBC RBC Hgb Hct MCHC RDW Plt Count Lymph % (Auto) [place] % (Auto) Lymph # (Auto) [place] # (Auto) Baso # (Auto) Seg Neutrophils % Seg Neuts % (Manual) Lymphocytes % (Manual) Nucleated RBC % Seg Neutrophils # Seg Neutrophils # Man Lymphocytes # (Manual) D-Dimer ABG pH POC ABG pCO2 POC ABG pO2 ABG pO2 ABG HCO3 ABG O2 Saturation ABG Base Excess ABG Hemoglobin ABG Oxyhemoglobin ABG Sodium ABG Potassium ABG Chloride ABG Glucose Oxyhemoglobin Carboxyhemoglobin Sodium Potassium Chloride Carbon Dioxide BUN Creatinine Glucose POC Glucose 311 H 218 H 304 H Hemoglobin A1c Lactic Acid Calcium Magnesium Ferritin Total Bilirubin AST ALT Alkaline Phosphatase Lactate Dehydrogenase Total Creatine Kinase C-Reactive Protein Total Protein Albumin Triglycerides Arterial Blood Glucose Arterial Blood Ionized Calcium Ur Specific [place] Urine WBC (Auto) Vancomycin Trough Coronavirus (PCR) 11/21/20 11/21/20 11/21/20 16:09 21:34 23:00 WBC RBC Hgb Hct MCHC RDW Plt Count Lymph % (Auto) [place] % (Auto) Lymph # (Auto) [place] # (Auto) Baso # (Auto) Seg Neutrophils % Seg Neuts % (Manual) Lymphocytes % (Manual) Nucleated RBC % Seg Neutrophils # Seg Neutrophils # Man Lymphocytes # (Manual) D-Dimer ABG pH 7.206 L POC ABG pCO2 59.3 H POC ABG pO2 76.7 L ABG pO2 ABG HCO3 ABG O2 Saturation ABG Base Excess ABG Hemoglobin ABG Oxyhemoglobin ABG Sodium 133.1 L ABG Potassium ABG Chloride ABG Glucose 320 H Oxyhemoglobin Carboxyhemoglobin Sodium Potassium Chloride Carbon Dioxide BUN Creatinine Glucose POC Glucose 239 H 279 H Hemoglobin A1c Lactic Acid Calcium Magnesium Ferritin Total Bilirubin AST ALT Alkaline Phosphatase Lactate Dehydrogenase Total Creatine Kinase C-Reactive Protein Total Protein Albumin Triglycerides Arterial Blood Glucose 320 H Arterial Blood Ionized Calcium Ur Specific [place] Urine WBC (Auto) Vancomycin Trough Coronavirus (PCR) 11/22/20 11/22/20 11/22/20 04:52 04:52 04:52 WBC RBC Hgb Hct MCHC RDW Plt Count Lymph % (Auto) [place] % (Auto) Lymph # (Auto) [place] # (Auto) Baso # (Auto) Seg Neutrophils % Seg Neuts % (Manual) Lymphocytes % (Manual) Nucleated RBC % Seg Neutrophils # Seg Neutrophils # Man Lymphocytes # (Manual) D-Dimer 1858.36 H ABG pH POC ABG pCO2 POC ABG pO2 ABG pO2 ABG HCO3 ABG O2 Saturation ABG Base Excess ABG Hemoglobin ABG Oxyhemoglobin ABG Sodium ABG Potassium ABG Chloride ABG Glucose Oxyhemoglobin Carboxyhemoglobin Sodium Potassium Chloride Carbon Dioxide BUN Creatinine Glucose POC Glucose Hemoglobin A1c Lactic Acid Calcium Magnesium Ferritin 734.2 H Total Bilirubin AST ALT Alkaline Phosphatase Lactate Dehydrogenase 404 H Total Creatine Kinase C-Reactive Protein 2.80 H Total Protein Albumin Triglycerides Arterial Blood Glucose Arterial Blood Ionized Calcium Ur Specific [place] Urine WBC (Auto) Vancomycin Trough Coronavirus (PCR) 11/22/20 11/22/20 11/22/20 05:12 05:39 11:50 WBC RBC Hgb Hct MCHC RDW Plt Count Lymph % (Auto) [place] % (Auto) Lymph # (Auto) [place] # (Auto) Baso # (Auto) Seg Neutrophils % Seg Neuts % (Manual) Lymphocytes % (Manual) Nucleated RBC % Seg Neutrophils # Seg Neutrophils # Man Lymphocytes # (Manual) D-Dimer ABG pH POC ABG pCO2 POC ABG pO2 51.0 L ABG pO2 ABG HCO3 ABG O2 Saturation ABG Base Excess ABG Hemoglobin ABG Oxyhemoglobin ABG Sodium 131.2 L ABG Potassium 4.6 H ABG Chloride ABG Glucose 317 H Oxyhemoglobin Carboxyhemoglobin Sodium Potassium Chloride Carbon Dioxide BUN Creatinine Glucose POC Glucose 340 H 417 H Hemoglobin A1c Lactic Acid Calcium Magnesium Ferritin Total Bilirubin AST ALT Alkaline Phosphatase Lactate Dehydrogenase Total Creatine Kinase C-Reactive Protein Total Protein Albumin Triglycerides Arterial Blood Glucose 317 H Arterial Blood Ionized Calcium 4.4 L Ur Specific [place] Urine WBC (Auto) Vancomycin Trough Coronavirus (PCR) 11/22/20 11/22/20 11/22/20 12:22 12:22 17:10 WBC 14.4 H RBC Hgb Hct MCHC RDW Plt Count Lymph % (Auto) [place] % (Auto) Lymph # (Auto) [place] # (Auto) Baso # (Auto) Seg Neutrophils % Seg Neuts % (Manual) 98.0 H Lymphocytes % (Manual) Nucleated RBC % Seg Neutrophils # Seg Neutrophils # Man 14.1 H Lymphocytes # (Manual) 0.0 L D-Dimer ABG pH POC ABG pCO2 POC ABG pO2 ABG pO2 ABG HCO3 ABG O2 Saturation ABG Base Excess ABG Hemoglobin ABG Oxyhemoglobin ABG Sodium ABG Potassium ABG Chloride ABG Glucose Oxyhemoglobin Carboxyhemoglobin Sodium 132 L Potassium Chloride Carbon Dioxide BUN 36 H Creatinine 0.6 L Glucose 219 H POC Glucose 157 H Hemoglobin A1c Lactic Acid Calcium 7.2 L Magnesium Ferritin Total Bilirubin AST ALT Alkaline Phosphatase Lactate Dehydrogenase Total Creatine Kinase C-Reactive Protein Total Protein Albumin Triglycerides Arterial Blood Glucose Arterial Blood Ionized Calcium Ur Specific [place] Urine WBC (Auto) Vancomycin Trough Coronavirus (PCR) 11/22/20 11/22/20 11/22/20 18:33 21:44 23:47 WBC RBC Hgb Hct MCHC RDW Plt Count Lymph % (Auto) [place] % (Auto) Lymph # (Auto) [place] # (Auto) Baso # (Auto) Seg Neutrophils % Seg Neuts % (Manual) Lymphocytes % (Manual) Nucleated RBC % Seg Neutrophils # Seg Neutrophils # Man Lymphocytes # (Manual) D-Dimer ABG pH POC ABG pCO2 POC ABG pO2 60.8 L ABG pO2 ABG HCO3 ABG O2 Saturation ABG Base Excess ABG Hemoglobin ABG Oxyhemoglobin 88.1 L ABG Sodium 135.1 L ABG Potassium ABG Chloride ABG Glucose 141 H Oxyhemoglobin Carboxyhemoglobin Sodium Potassium Chloride Carbon Dioxide BUN Creatinine Glucose POC Glucose 117 H 123 H Hemoglobin A1c Lactic Acid Calcium Magnesium Ferritin Total Bilirubin AST ALT Alkaline Phosphatase Lactate Dehydrogenase Total Creatine Kinase C-Reactive Protein Total Protein Albumin Triglycerides Arterial Blood Glucose 141 H Arterial Blood Ionized Calcium Ur Specific [place] Urine WBC (Auto) Vancomycin Trough Coronavirus (PCR) 11/23/20 11/23/20 11/23/20 04:00 04:00 05:23 WBC 14.4 H RBC Hgb Hct MCHC RDW Plt Count Lymph % (Auto) [place] % (Auto) Lymph # (Auto) [place] # (Auto) Baso # (Auto) Seg Neutrophils % Seg Neuts % (Manual) Lymphocytes % (Manual) Nucleated RBC % Seg Neutrophils # Seg Neutrophils # Man Lymphocytes # (Manual) D-Dimer ABG pH POC ABG pCO2 POC ABG pO2 ABG pO2 ABG HCO3 ABG O2 Saturation ABG Base Excess ABG Hemoglobin ABG Oxyhemoglobin ABG Sodium ABG Potassium ABG Chloride ABG Glucose Oxyhemoglobin Carboxyhemoglobin Sodium 136 L Potassium Chloride Carbon Dioxide BUN 33 H Creatinine 0.6 L Glucose 115 H POC Glucose 173 H Hemoglobin A1c Lactic Acid Calcium 7.1 L Magnesium Ferritin Total Bilirubin AST 64 H ALT 75 H Alkaline Phosphatase Lactate Dehydrogenase Total Creatine Kinase C-Reactive Protein Total Protein 5.9 L D Albumin 2.4 L Triglycerides Arterial Blood Glucose Arterial Blood Ionized Calcium Ur Specific [place] Urine WBC (Auto) Vancomycin Trough Coronavirus (PCR) 11/23/20 11/23/20 11/23/20 05:40 11:27 17:10 WBC RBC Hgb Hct MCHC RDW Plt Count Lymph % (Auto) [place] % (Auto) Lymph # (Auto) [place] # (Auto) Baso # (Auto) Seg Neutrophils % Seg Neuts % (Manual) Lymphocytes % (Manual) Nucleated RBC % Seg Neutrophils # Seg Neutrophils # Man Lymphocytes # (Manual) D-Dimer ABG pH POC ABG pCO2 POC ABG pO2 56.5 L ABG pO2 ABG HCO3 ABG O2 Saturation ABG Base Excess ABG Hemoglobin ABG Oxyhemoglobin ABG Sodium ABG Potassium ABG Chloride 109.0 H ABG Glucose 114 H Oxyhemoglobin Carboxyhemoglobin Sodium Potassium Chloride Carbon Dioxide BUN Creatinine Glucose POC Glucose 114 H 136 H Hemoglobin A1c Lactic Acid Calcium Magnesium Ferritin Total Bilirubin AST ALT Alkaline Phosphatase Lactate Dehydrogenase Total Creatine Kinase C-Reactive Protein Total Protein Albumin Triglycerides Arterial Blood Glucose 114 H Arterial Blood Ionized Calcium 4.5 L Ur Specific [place] Urine WBC (Auto) Vancomycin Trough Coronavirus (PCR) 11/24/20 11/24/20 11/24/20 05:14 05:14 05:14 WBC RBC Hgb Hct MCHC RDW Plt Count Lymph % (Auto) [place] % (Auto) Lymph # (Auto) [place] # (Auto) Baso # (Auto) Seg Neutrophils % Seg Neuts % (Manual) Lymphocytes % (Manual) Nucleated RBC % Seg Neutrophils # Seg Neutrophils # Man Lymphocytes # (Manual) D-Dimer 1433.39 H ABG pH POC ABG pCO2 POC ABG pO2 ABG pO2 ABG HCO3 ABG O2 Saturation ABG Base Excess ABG Hemoglobin ABG Oxyhemoglobin ABG Sodium ABG Potassium ABG Chloride ABG Glucose Oxyhemoglobin Carboxyhemoglobin Sodium Potassium Chloride Carbon Dioxide BUN Creatinine Glucose POC Glucose Hemoglobin A1c Lactic Acid Calcium Magnesium Ferritin 997.5 H Total Bilirubin AST ALT Alkaline Phosphatase Lactate Dehydrogenase 463 H Total Creatine Kinase C-Reactive Protein Total Protein Albumin Triglycerides Arterial Blood Glucose Arterial Blood Ionized Calcium Ur Specific [place] Urine WBC (Auto) Vancomycin Trough Coronavirus (PCR) 11/24/20 11/24/20 11/24/20 05:31 05:36 12:05 WBC RBC Hgb Hct MCHC RDW Plt Count Lymph % (Auto) [place] % (Auto) Lymph # (Auto) [place] # (Auto) Baso # (Auto) Seg Neutrophils % Seg Neuts % (Manual) Lymphocytes % (Manual) Nucleated RBC % Seg Neutrophils # Seg Neutrophils # Man Lymphocytes # (Manual) D-Dimer ABG pH POC ABG pCO2 POC ABG pO2 57.2 L ABG pO2 ABG HCO3 ABG O2 Saturation ABG Base Excess ABG Hemoglobin ABG Oxyhemoglobin ABG Sodium ABG Potassium ABG Chloride ABG Glucose 180 H Oxyhemoglobin Carboxyhemoglobin Sodium Potassium Chloride Carbon Dioxide BUN Creatinine Glucose POC Glucose 199 H 143 H Hemoglobin A1c Lactic Acid Calcium Magnesium Ferritin Total Bilirubin AST ALT Alkaline Phosphatase Lactate Dehydrogenase Total Creatine Kinase C-Reactive Protein Total Protein Albumin Triglycerides Arterial Blood Glucose 180 H Arterial Blood Ionized Calcium 4.5 L Ur Specific [place] Urine WBC (Auto) Vancomycin Trough Coronavirus (PCR) 11/24/20 11/24/20 11/24/20 12:14 17:47 23:47 WBC RBC Hgb Hct MCHC RDW Plt Count Lymph % (Auto) [place] % (Auto) Lymph # (Auto) [place] # (Auto) Baso # (Auto) Seg Neutrophils % Seg Neuts % (Manual) Lymphocytes % (Manual) Nucleated RBC % Seg Neutrophils # Seg Neutrophils # Man Lymphocytes # (Manual) D-Dimer ABG pH 7.261 L POC ABG pCO2 59.7 H POC ABG pO2 75.7 L ABG pO2 ABG HCO3 ABG O2 Saturation ABG Base Excess ABG Hemoglobin ABG Oxyhemoglobin 92.5 L ABG Sodium ABG Potassium ABG Chloride 108.0 H ABG Glucose 150 H Oxyhemoglobin Carboxyhemoglobin Sodium Potassium Chloride Carbon Dioxide BUN Creatinine Glucose POC Glucose 223 H 179 H Hemoglobin A1c Lactic Acid Calcium Magnesium Ferritin Total Bilirubin AST ALT Alkaline Phosphatase Lactate Dehydrogenase Total Creatine Kinase C-Reactive Protein Total Protein Albumin Triglycerides Arterial Blood Glucose 150 H Arterial Blood Ionized Calcium Ur Specific [place] Urine WBC (Auto) Vancomycin Trough Coronavirus (PCR) 11/25/20 11/25/20 11/25/20 03:29 05:07 05:15 WBC 13.9 H RBC Hgb Hct MCHC RDW Plt Count Lymph % (Auto) [place] % (Auto) Lymph # (Auto) [place] # (Auto) Baso # (Auto) Seg Neutrophils % Seg Neuts % (Manual) 97.0 H Lymphocytes % (Manual) Nucleated RBC % Seg Neutrophils # Seg Neutrophils # Man 13.5 H Lymphocytes # (Manual) 0.0 L D-Dimer ABG pH 7.272 L POC ABG pCO2 69.0 H POC ABG pO2 132.9 H ABG pO2 ABG HCO3 ABG O2 Saturation ABG Base Excess ABG Hemoglobin ABG Oxyhemoglobin ABG Sodium ABG Potassium ABG Chloride ABG Glucose 174 H Oxyhemoglobin Carboxyhemoglobin Sodium Potassium Chloride Carbon Dioxide BUN Creatinine Glucose POC Glucose 168 H Hemoglobin A1c Lactic Acid Calcium Magnesium Ferritin Total Bilirubin AST ALT Alkaline Phosphatase Lactate Dehydrogenase Total Creatine Kinase C-Reactive Protein Total Protein Albumin Triglycerides Arterial Blood Glucose 174 H Arterial Blood Ionized Calcium Ur Specific [place] Urine WBC (Auto) Vancomycin Trough Coronavirus (PCR) 11/25/20 11/25/20 11/25/20 05:15 11:25 17:35 WBC RBC Hgb Hct MCHC RDW Plt Count Lymph % (Auto) [place] % (Auto) Lymph # (Auto) [place] # (Auto) Baso # (Auto) Seg Neutrophils % Seg Neuts % (Manual) Lymphocytes % (Manual) Nucleated RBC % Seg Neutrophils # Seg Neutrophils # Man Lymphocytes # (Manual) D-Dimer ABG pH POC ABG pCO2 POC ABG pO2 ABG pO2 ABG HCO3 ABG O2 Saturation ABG Base Excess ABG Hemoglobin ABG Oxyhemoglobin ABG Sodium ABG Potassium ABG Chloride ABG Glucose Oxyhemoglobin Carboxyhemoglobin Sodium Potassium Chloride Carbon Dioxide BUN 29 H Creatinine 0.5 L Glucose 161 H POC Glucose 224 H 228 H Hemoglobin A1c Lactic Acid Calcium 7.8 L Magnesium Ferritin Total Bilirubin AST 89 H ALT 129 H Alkaline Phosphatase Lactate Dehydrogenase Total Creatine Kinase C-Reactive Protein Total Protein 5.8 L Albumin 2.5 L Triglycerides Arterial Blood Glucose Arterial Blood Ionized Calcium Ur Specific [place] Urine WBC (Auto) Vancomycin Trough Coronavirus (PCR) 11/25/20 11/25/20 11/26/20 20:45 23:28 04:00 WBC RBC Hgb Hct MCHC RDW Plt Count Lymph % (Auto) [place] % (Auto) Lymph # (Auto) [place] # (Auto) Baso # (Auto) Seg Neutrophils % Seg Neuts % (Manual) Lymphocytes % (Manual) Nucleated RBC % Seg Neutrophils # Seg Neutrophils # Man Lymphocytes # (Manual) D-Dimer ABG pH POC ABG pCO2 POC ABG pO2 ABG pO2 ABG HCO3 ABG O2 Saturation ABG Base Excess ABG Hemoglobin ABG Oxyhemoglobin ABG Sodium ABG Potassium ABG Chloride ABG Glucose Oxyhemoglobin Carboxyhemoglobin Sodium Potassium Chloride Carbon Dioxide BUN Creatinine Glucose POC Glucose 177 H 243 H Hemoglobin A1c Lactic Acid Calcium Magnesium Ferritin 778.8 H Total Bilirubin AST ALT Alkaline Phosphatase Lactate Dehydrogenase Total Creatine Kinase C-Reactive Protein Total Protein Albumin Triglycerides Arterial Blood Glucose Arterial Blood Ionized Calcium Ur Specific [place] Urine WBC (Auto) Vancomycin Trough Coronavirus (PCR) 11/26/20 11/26/20 11/26/20 04:00 05:34 06:04 WBC RBC Hgb Hct MCHC RDW Plt Count Lymph % (Auto) [place] % (Auto) Lymph # (Auto) [place] # (Auto) Baso # (Auto) Seg Neutrophils % Seg Neuts % (Manual) Lymphocytes % (Manual) Nucleated RBC % Seg Neutrophils # Seg Neutrophils # Man Lymphocytes # (Manual) D-Dimer 926.11 H ABG pH POC ABG pCO2 POC ABG pO2 ABG pO2 ABG HCO3 ABG O2 Saturation ABG Base Excess ABG Hemoglobin ABG Oxyhemoglobin ABG Sodium ABG Potassium ABG Chloride ABG Glucose Oxyhemoglobin Carboxyhemoglobin Sodium Potassium Chloride Carbon Dioxide 39 H D BUN 30 H Creatinine 0.5 L Glucose 193 H POC Glucose 178 H Hemoglobin A1c Lactic Acid Calcium 7.7 L Magnesium Ferritin Total Bilirubin AST 65 H ALT 132 H Alkaline Phosphatase Lactate Dehydrogenase 288 H Total Creatine Kinase C-Reactive Protein 1.40 H Total Protein 5.7 L Albumin 2.4 L Triglycerides Arterial Blood Glucose Arterial Blood Ionized Calcium Ur Specific [place] Urine WBC (Auto) Vancomycin Trough Coronavirus (PCR) 11/26/20 11/26/20 11/26/20 06:04 08:47 11:20 WBC 12.4 H RBC Hgb Hct MCHC RDW Plt Count Lymph % (Auto) [place] % (Auto) Lymph # (Auto) [place] # (Auto) Baso # (Auto) Seg Neutrophils % Seg Neuts % (Manual) 98.0 H Lymphocytes % (Manual) 1.0 L Nucleated RBC % Seg Neutrophils # Seg Neutrophils # Man 12.2 H Lymphocytes # (Manual) 0.1 L D-Dimer ABG pH POC ABG pCO2 75.2 H POC ABG pO2 61.9 L ABG pO2 ABG HCO3 ABG O2 Saturation ABG Base Excess ABG Hemoglobin ABG Oxyhemoglobin 90.3 L ABG Sodium ABG Potassium ABG Chloride ABG Glucose 243 H Oxyhemoglobin Carboxyhemoglobin Sodium Potassium Chloride Carbon Dioxide BUN Creatinine Glucose POC Glucose 255 H Hemoglobin A1c Lactic Acid Calcium Magnesium Ferritin Total Bilirubin AST ALT Alkaline Phosphatase Lactate Dehydrogenase Total Creatine Kinase C-Reactive Protein Total Protein Albumin Triglycerides Arterial Blood Glucose 243 H Arterial Blood Ionized Calcium Ur Specific [place] Urine WBC (Auto) Vancomycin Trough Coronavirus (PCR) 11/26/20 11/26/20 11/26/20 16:20 17:15 23:41 WBC RBC Hgb Hct MCHC RDW Plt Count Lymph % (Auto) [place] % (Auto) Lymph # (Auto) [place] # (Auto) Baso # (Auto) Seg Neutrophils % Seg Neuts % (Manual) Lymphocytes % (Manual) Nucleated RBC % Seg Neutrophils # Seg Neutrophils # Man Lymphocytes # (Manual) D-Dimer ABG pH POC ABG pCO2 66.6 H POC ABG pO2 78.1 L ABG pO2 ABG HCO3 ABG O2 Saturation ABG Base Excess ABG Hemoglobin ABG Oxyhemoglobin ABG Sodium ABG Potassium ABG Chloride ABG Glucose 244 H Oxyhemoglobin Carboxyhemoglobin Sodium Potassium Chloride Carbon Dioxide BUN Creatinine Glucose POC Glucose 219 H 210 H Hemoglobin A1c Lactic Acid Calcium Magnesium Ferritin Total Bilirubin AST ALT Alkaline Phosphatase Lactate Dehydrogenase Total Creatine Kinase C-Reactive Protein Total Protein Albumin Triglycerides Arterial Blood Glucose 244 H Arterial Blood Ionized Calcium Ur Specific [place] Urine WBC (Auto) Vancomycin Trough Coronavirus (PCR) 11/27/20 11/27/20 11/27/20 04:46 05:38 06:25 WBC 13.8 H RBC Hgb Hct MCHC RDW Plt Count Lymph % (Auto) 2.0 L [place] % (Auto) Lymph # (Auto) 0.3 L [place] # (Auto) Baso # (Auto) Seg Neutrophils % Seg Neuts % (Manual) 96.0 H Lymphocytes % (Manual) Nucleated RBC % Seg Neutrophils # 12.7 H Seg Neutrophils # Man 13.2 H Lymphocytes # (Manual) 0.0 L D-Dimer ABG pH POC ABG pCO2 63.0 H POC ABG pO2 53.6 L ABG pO2 ABG HCO3 ABG O2 Saturation ABG Base Excess ABG Hemoglobin ABG Oxyhemoglobin 87.8 L ABG Sodium 115.4 L ABG Potassium ABG Chloride ABG Glucose 219 H Oxyhemoglobin Carboxyhemoglobin Sodium Potassium Chloride Carbon Dioxide BUN Creatinine Glucose POC Glucose 227 H Hemoglobin A1c Lactic Acid Calcium Magnesium Ferritin Total Bilirubin AST ALT Alkaline Phosphatase Lactate Dehydrogenase Total Creatine Kinase C-Reactive Protein Total Protein Albumin Triglycerides Arterial Blood Glucose 219 H Arterial Blood Ionized Calcium Ur Specific [place] Urine WBC (Auto) Vancomycin Trough Coronavirus (PCR) 11/27/20 11/27/20 11/27/20 06:25 18:05 23:29 WBC RBC Hgb Hct MCHC RDW Plt Count Lymph % (Auto) [place] % (Auto) Lymph # (Auto) [place] # (Auto) Baso # (Auto) Seg Neutrophils % Seg Neuts % (Manual) Lymphocytes % (Manual) Nucleated RBC % Seg Neutrophils # Seg Neutrophils # Man Lymphocytes # (Manual) D-Dimer ABG pH POC ABG pCO2 POC ABG pO2 ABG pO2 ABG HCO3 ABG O2 Saturation ABG Base Excess ABG Hemoglobin ABG Oxyhemoglobin ABG Sodium ABG Potassium ABG Chloride ABG Glucose Oxyhemoglobin Carboxyhemoglobin Sodium Potassium Chloride Carbon Dioxide 38 H BUN 34 H Creatinine 0.4 L Glucose 243 H POC Glucose 329 H 227 H Hemoglobin A1c Lactic Acid Calcium 7.9 L Magnesium Ferritin Total Bilirubin AST 50 H ALT 110 H Alkaline Phosphatase Lactate Dehydrogenase Total Creatine Kinase C-Reactive Protein Total Protein 6.1 L Albumin 2.4 L Triglycerides Arterial Blood Glucose Arterial Blood Ionized Calcium Ur Specific [place] Urine WBC (Auto) Vancomycin Trough Coronavirus (PCR) 11/28/20 11/28/20 11/28/20 03:45 03:45 03:46 WBC 12.2 H RBC Hgb Hct MCHC RDW Plt Count Lymph % (Auto) [place] % (Auto) Lymph # (Auto) [place] # (Auto) Baso # (Auto) Seg Neutrophils % Seg Neuts % (Manual) 93.0 H Lymphocytes % (Manual) 2.0 L Nucleated RBC % Seg Neutrophils # Seg Neutrophils # Man 11.3 H Lymphocytes # (Manual) 0.2 L D-Dimer ABG pH POC ABG pCO2 68.4 H POC ABG pO2 55.4 L ABG pO2 ABG HCO3 ABG O2 Saturation ABG Base Excess ABG Hemoglobin ABG Oxyhemoglobin ABG Sodium ABG Potassium ABG Chloride ABG Glucose 197 H Oxyhemoglobin Carboxyhemoglobin Sodium Potassium Chloride Carbon Dioxide 36 H BUN 37 H Creatinine 0.4 L Glucose 194 H POC Glucose Hemoglobin A1c Lactic Acid Calcium 8.1 L Magnesium Ferritin Total Bilirubin AST ALT 86 H Alkaline Phosphatase Lactate Dehydrogenase Total Creatine Kinase C-Reactive Protein Total Protein 6.0 L Albumin 2.3 L Triglycerides Arterial Blood Glucose 197 H Arterial Blood Ionized Calcium Ur Specific [place] Urine WBC (Auto) Vancomycin Trough Coronavirus (PCR) 11/28/20 11/28/20 11/29/20 05:24 12:21 04:41 WBC RBC Hgb Hct MCHC RDW Plt Count Lymph % (Auto) [place] % (Auto) Lymph # (Auto) [place] # (Auto) Baso # (Auto) Seg Neutrophils % Seg Neuts % (Manual) Lymphocytes % (Manual) Nucleated RBC % Seg Neutrophils # Seg Neutrophils # Man Lymphocytes # (Manual) D-Dimer ABG pH POC ABG pCO2 55.1 H POC ABG pO2 53.6 L ABG pO2 ABG HCO3 ABG O2 Saturation ABG Base Excess ABG Hemoglobin ABG Oxyhemoglobin 87.1 L ABG Sodium 131.2 L ABG Potassium ABG Chloride ABG Glucose 164 H Oxyhemoglobin Carboxyhemoglobin Sodium Potassium Chloride Carbon Dioxide BUN Creatinine Glucose POC Glucose 173 H 126 H Hemoglobin A1c Lactic Acid Calcium Magnesium Ferritin Total Bilirubin AST ALT Alkaline Phosphatase Lactate Dehydrogenase Total Creatine Kinase C-Reactive Protein Total Protein Albumin Triglycerides Arterial Blood Glucose 164 H Arterial Blood Ionized Calcium 4.4 L Ur Specific [place] Urine WBC (Auto) Vancomycin Trough Coronavirus (PCR) 11/29/20 11/29/20 11/29/20 05:29 12:41 13:28 WBC RBC Hgb Hct MCHC RDW Plt Count Lymph % (Auto) [place] % (Auto) Lymph # (Auto) [place] # (Auto) Baso # (Auto) Seg Neutrophils % Seg Neuts % (Manual) Lymphocytes % (Manual) Nucleated RBC % Seg Neutrophils # Seg Neutrophils # Man Lymphocytes # (Manual) D-Dimer ABG pH POC ABG pCO2 POC ABG pO2 ABG pO2 ABG HCO3 ABG O2 Saturation ABG Base Excess ABG Hemoglobin ABG Oxyhemoglobin ABG Sodium ABG Potassium ABG Chloride ABG Glucose Oxyhemoglobin Carboxyhemoglobin Sodium Potassium Chloride Carbon Dioxide 40 H BUN 32 H Creatinine 0.4 L Glucose 274 H POC Glucose 173 H 257 H Hemoglobin A1c Lactic Acid Calcium 7.2 L Magnesium Ferritin Total Bilirubin AST 57 H ALT 102 H Alkaline Phosphatase Lactate Dehydrogenase Total Creatine Kinase C-Reactive Protein Total Protein 5.7 L Albumin 2.1 L Triglycerides Arterial Blood Glucose Arterial Blood Ionized Calcium Ur Specific [place] Urine WBC (Auto) Vancomycin Trough Coronavirus (PCR) 11/29/20 11/29/20 11/29/20 15:40 17:36 21:26 WBC RBC Hgb Hct MCHC RDW Plt Count Lymph % (Auto) [place] % (Auto) Lymph # (Auto) [place] # (Auto) Baso # (Auto) Seg Neutrophils % Seg Neuts % (Manual) Lymphocytes % (Manual) Nucleated RBC % Seg Neutrophils # Seg Neutrophils # Man Lymphocytes # (Manual) D-Dimer ABG pH POC ABG pCO2 POC ABG pO2 ABG pO2 ABG HCO3 ABG O2 Saturation ABG Base Excess ABG Hemoglobin ABG Oxyhemoglobin ABG Sodium ABG Potassium ABG Chloride ABG Glucose Oxyhemoglobin Carboxyhemoglobin Sodium Potassium Chloride Carbon Dioxide BUN Creatinine Glucose POC Glucose 240 H 244 H Hemoglobin A1c Lactic Acid Calcium Magnesium Ferritin Total Bilirubin AST ALT Alkaline Phosphatase Lactate Dehydrogenase Total Creatine Kinase C-Reactive Protein Total Protein Albumin Triglycerides Arterial Blood Glucose Arterial Blood Ionized Calcium Ur Specific [place] Urine WBC (Auto) Vancomycin Trough 4.0 L Coronavirus (PCR) 11/29/20 11/30/20 11/30/20 23:26 03:30 03:30 WBC RBC Hgb Hct MCHC RDW Plt Count Lymph % (Auto) [place] % (Auto) Lymph # (Auto) [place] # (Auto) Baso # (Auto) Seg Neutrophils % Seg Neuts % (Manual) 97.0 H Lymphocytes % (Manual) 1.0 L Nucleated RBC % Seg Neutrophils # Seg Neutrophils # Man 9.9 H Lymphocytes # (Manual) 0.1 L D-Dimer ABG pH POC ABG pCO2 POC ABG pO2 ABG pO2 ABG HCO3 ABG O2 Saturation ABG Base Excess ABG Hemoglobin ABG Oxyhemoglobin ABG Sodium ABG Potassium ABG Chloride ABG Glucose Oxyhemoglobin Carboxyhemoglobin Sodium Potassium Chloride Carbon Dioxide 38 H BUN 34 H Creatinine 0.4 L Glucose 305 H POC Glucose 283 H Hemoglobin A1c Lactic Acid Calcium 7.6 L Magnesium Ferritin Total Bilirubin AST ALT 89 H Alkaline Phosphatase Lactate Dehydrogenase Total Creatine Kinase C-Reactive Protein Total Protein 6.0 L Albumin 2.3 L Triglycerides Arterial Blood Glucose Arterial Blood Ionized Calcium Ur Specific [place] Urine WBC (Auto) Vancomycin Trough Coronavirus (PCR) 11/30/20 11/30/20 11/30/20 03:57 05:22 12:05 WBC RBC Hgb Hct MCHC RDW Plt Count Lymph % (Auto) [place] % (Auto) Lymph # (Auto) [place] # (Auto) Baso # (Auto) Seg Neutrophils % Seg Neuts % (Manual) Lymphocytes % (Manual) Nucleated RBC % Seg Neutrophils # Seg Neutrophils # Man Lymphocytes # (Manual) D-Dimer ABG pH POC ABG pCO2 60.8 H POC ABG pO2 51.1 L ABG pO2 ABG HCO3 ABG O2 Saturation ABG Base Excess ABG Hemoglobin ABG Oxyhemoglobin 84.6 L ABG Sodium ABG Potassium ABG Chloride ABG Glucose 315 H Oxyhemoglobin Carboxyhemoglobin Sodium Potassium Chloride Carbon Dioxide BUN Creatinine Glucose POC Glucose 295 H 413 H Hemoglobin A1c Lactic Acid Calcium Magnesium Ferritin Total Bilirubin AST ALT Alkaline Phosphatase Lactate Dehydrogenase Total Creatine Kinase C-Reactive Protein Total Protein Albumin Triglycerides Arterial Blood Glucose 315 H Arterial Blood Ionized Calcium 4.5 L Ur Specific [place] Urine WBC (Auto) Vancomycin Trough Coronavirus (PCR) 11/30/20 11/30/20 12/01/20 17:24 23:25 02:14 WBC RBC Hgb Hct MCHC RDW Plt Count Lymph % (Auto) [place] % (Auto) Lymph # (Auto) [place] # (Auto) Baso # (Auto) Seg Neutrophils % Seg Neuts % (Manual) Lymphocytes % (Manual) Nucleated RBC % Seg Neutrophils # Seg Neutrophils # Man Lymphocytes # (Manual) D-Dimer ABG pH 7.278 L POC ABG pCO2 78.1 H POC ABG pO2 79.5 L ABG pO2 ABG HCO3 ABG O2 Saturation ABG Base Excess ABG Hemoglobin 11.6 L ABG Oxyhemoglobin ABG Sodium 134.5 L ABG Potassium 4.6 H ABG Chloride ABG Glucose 286 H Oxyhemoglobin Carboxyhemoglobin Sodium Potassium Chloride Carbon Dioxide BUN Creatinine Glucose POC Glucose 305 H 302 H Hemoglobin A1c Lactic Acid Calcium Magnesium Ferritin Total Bilirubin AST ALT Alkaline Phosphatase Lactate Dehydrogenase Total Creatine Kinase C-Reactive Protein Total Protein Albumin Triglycerides Arterial Blood Glucose 286 H Arterial Blood Ionized Calcium Ur Specific [place] Urine WBC (Auto) Vancomycin Trough Coronavirus (PCR) 12/01/20 12/01/20 12/01/20 03:35 03:35 05:22 WBC 13.4 H RBC 3.54 L Hgb 10.4 L Hct 31.8 L MCHC RDW Plt Count Lymph % (Auto) [place] % (Auto) Lymph # (Auto) [place] # (Auto) Baso # (Auto) Seg Neutrophils % Seg Neuts % (Manual) 95.0 H Lymphocytes % (Manual) 3.0 L Nucleated RBC % Seg Neutrophils # Seg Neutrophils # Man 12.7 H Lymphocytes # (Manual) 0.4 L D-Dimer ABG pH POC ABG pCO2 POC ABG pO2 ABG pO2 ABG HCO3 ABG O2 Saturation ABG Base Excess ABG Hemoglobin ABG Oxyhemoglobin ABG Sodium ABG Potassium ABG Chloride ABG Glucose Oxyhemoglobin Carboxyhemoglobin Sodium Potassium Chloride Carbon Dioxide 35 H BUN 34 H Creatinine 0.5 L Glucose 279 H POC Glucose 259 H Hemoglobin A1c Lactic Acid Calcium 7.6 L Magnesium Ferritin Total Bilirubin AST ALT 63 H Alkaline Phosphatase Lactate Dehydrogenase Total Creatine Kinase C-Reactive Protein Total Protein 4.8 L Albumin 2.1 L Triglycerides Arterial Blood Glucose Arterial Blood Ionized Calcium Ur Specific [place] Urine WBC (Auto) Vancomycin Trough Coronavirus (PCR) 12/01/20 12/01/20 12/01/20 12:05 17:40 23:46 WBC RBC Hgb Hct MCHC RDW Plt Count Lymph % (Auto) [place] % (Auto) Lymph # (Auto) [place] # (Auto) Baso # (Auto) Seg Neutrophils % Seg Neuts % (Manual) Lymphocytes % (Manual) Nucleated RBC % Seg Neutrophils # Seg Neutrophils # Man Lymphocytes # (Manual) D-Dimer ABG pH POC ABG pCO2 POC ABG pO2 ABG pO2 ABG HCO3 ABG O2 Saturation ABG Base Excess ABG Hemoglobin ABG Oxyhemoglobin ABG Sodium ABG Potassium ABG Chloride ABG Glucose Oxyhemoglobin Carboxyhemoglobin Sodium Potassium Chloride Carbon Dioxide BUN Creatinine Glucose POC Glucose 197 H 244 H 284 H Hemoglobin A1c Lactic Acid Calcium Magnesium Ferritin Total Bilirubin AST ALT Alkaline Phosphatase Lactate Dehydrogenase Total Creatine Kinase C-Reactive Protein Total Protein Albumin Triglycerides Arterial Blood Glucose Arterial Blood Ionized Calcium Ur Specific [place] Urine WBC (Auto) Vancomycin Trough Coronavirus (PCR) 12/02/20 12/02/20 12/02/20 02:14 03:03 04:11 WBC 16.5 H RBC 3.55 L Hgb 10.5 L Hct 31.9 L MCHC RDW Plt Count Lymph % (Auto) [place] % (Auto) Lymph # (Auto) [place] # (Auto) Baso # (Auto) Seg Neutrophils % Seg Neuts % (Manual) 90.0 H Lymphocytes % (Manual) 3.0 L Nucleated RBC % Seg Neutrophils # Seg Neutrophils # Man 14.9 H Lymphocytes # (Manual) 0.5 L D-Dimer ABG pH POC ABG pCO2 74.8 H POC ABG pO2 58.9 L ABG pO2 ABG HCO3 ABG O2 Saturation ABG Base Excess ABG Hemoglobin 11.5 L ABG Oxyhemoglobin ABG Sodium ABG Potassium ABG Chloride ABG Glucose 264 H Oxyhemoglobin Carboxyhemoglobin Sodium Potassium Chloride Carbon Dioxide 37 H BUN 30 H Creatinine 0.4 L Glucose 245 H POC Glucose Hemoglobin A1c Lactic Acid Calcium 7.5 L Magnesium Ferritin Total Bilirubin AST ALT Alkaline Phosphatase Lactate Dehydrogenase Total Creatine Kinase C-Reactive Protein Total Protein 5.2 L Albumin 2.2 L Triglycerides Arterial Blood Glucose 264 H Arterial Blood Ionized Calcium 4.5 L Ur Specific [place] Urine WBC (Auto) Vancomycin Trough Coronavirus (PCR) 12/02/20 12/02/20 12/02/20 05:19 11:46 17:52 WBC RBC Hgb Hct MCHC RDW Plt Count Lymph % (Auto) [place] % (Auto) Lymph # (Auto) [place] # (Auto) Baso # (Auto) Seg Neutrophils % Seg Neuts % (Manual) Lymphocytes % (Manual) Nucleated RBC % Seg Neutrophils # Seg Neutrophils # Man Lymphocytes # (Manual) D-Dimer ABG pH POC ABG pCO2 POC ABG pO2 ABG pO2 ABG HCO3 ABG O2 Saturation ABG Base Excess ABG Hemoglobin ABG Oxyhemoglobin ABG Sodium ABG Potassium ABG Chloride ABG Glucose Oxyhemoglobin Carboxyhemoglobin Sodium Potassium Chloride Carbon Dioxide BUN Creatinine Glucose POC Glucose 238 H 236 H 233 H Hemoglobin A1c Lactic Acid Calcium Magnesium Ferritin Total Bilirubin AST ALT Alkaline Phosphatase Lactate Dehydrogenase Total Creatine Kinase C-Reactive Protein Total Protein Albumin Triglycerides Arterial Blood Glucose Arterial Blood Ionized Calcium Ur Specific [place] Urine WBC (Auto) Vancomycin Trough Coronavirus (PCR) 12/02/20 12/03/20 12/03/20 23:23 03:21 04:35 WBC RBC Hgb Hct MCHC RDW Plt Count 112 L Lymph % (Auto) [place] % (Auto) Lymph # (Auto) [place] # (Auto) Baso # (Auto) Seg Neutrophils % Seg Neuts % (Manual) 93.0 H Lymphocytes % (Manual) 4.0 L Nucleated RBC % Seg Neutrophils # Seg Neutrophils # Man 9.1 H Lymphocytes # (Manual) 0.4 L D-Dimer ABG pH 7.299 L POC ABG pCO2 82.1 H POC ABG pO2 62.4 L ABG pO2 ABG HCO3 ABG O2 Saturation ABG Base Excess ABG Hemoglobin 11.5 L ABG Oxyhemoglobin 89.6 L ABG Sodium 134.3 L ABG Potassium ABG Chloride 95.0 L ABG Glucose 203 H Oxyhemoglobin Carboxyhemoglobin Sodium Potassium Chloride Carbon Dioxide BUN Creatinine Glucose POC Glucose 213 H Hemoglobin A1c Lactic Acid Calcium Magnesium Ferritin Total Bilirubin AST ALT Alkaline Phosphatase Lactate Dehydrogenase Total Creatine Kinase C-Reactive Protein Total Protein Albumin Triglycerides Arterial Blood Glucose 203 H Arterial Blood Ionized Calcium 4.5 L Ur Specific [place] Urine WBC (Auto) Vancomycin Trough Coronavirus (PCR) 12/03/20 12/03/20 12/03/20 04:35 05:42 11:28 WBC RBC Hgb Hct MCHC RDW Plt Count Lymph % (Auto) [place] % (Auto) Lymph # (Auto) [place] # (Auto) Baso # (Auto) Seg Neutrophils % Seg Neuts % (Manual) Lymphocytes % (Manual) Nucleated RBC % Seg Neutrophils # Seg Neutrophils # Man Lymphocytes # (Manual) D-Dimer ABG pH POC ABG pCO2 POC ABG pO2 ABG pO2 ABG HCO3 ABG O2 Saturation ABG Base Excess ABG Hemoglobin ABG Oxyhemoglobin ABG Sodium ABG Potassium ABG Chloride ABG Glucose Oxyhemoglobin Carboxyhemoglobin Sodium Potassium Chloride 97.8 L Carbon Dioxide 43 H* BUN 25 H Creatinine 0.3 L Glucose 214 H POC Glucose 193 H 211 H Hemoglobin A1c Lactic Acid Calcium 7.7 L Magnesium Ferritin Total Bilirubin AST ALT 63 H Alkaline Phosphatase 132 H Lactate Dehydrogenase Total Creatine Kinase C-Reactive Protein Total Protein 5.1 L Albumin 2.4 L Triglycerides Arterial Blood Glucose Arterial Blood Ionized Calcium Ur Specific [place] Urine WBC (Auto) Vancomycin Trough Coronavirus (PCR) 12/03/20 12/03/20 12/04/20 17:45 23:57 00:11 WBC RBC Hgb Hct MCHC RDW Plt Count Lymph % (Auto) [place] % (Auto) Lymph # (Auto) [place] # (Auto) Baso # (Auto) Seg Neutrophils % Seg Neuts % (Manual) Lymphocytes % (Manual) Nucleated RBC % Seg Neutrophils # Seg Neutrophils # Man Lymphocytes # (Manual) D-Dimer ABG pH POC ABG pCO2 POC ABG pO2 ABG pO2 ABG HCO3 ABG O2 Saturation ABG Base Excess ABG Hemoglobin ABG Oxyhemoglobin ABG Sodium ABG Potassium ABG Chloride ABG Glucose Oxyhemoglobin Carboxyhemoglobin Sodium Potassium Chloride Carbon Dioxide BUN Creatinine Glucose POC Glucose 231 H 240 H 239 H Hemoglobin A1c Lactic Acid Calcium Magnesium Ferritin Total Bilirubin AST ALT Alkaline Phosphatase Lactate Dehydrogenase Total Creatine Kinase C-Reactive Protein Total Protein Albumin Triglycerides Arterial Blood Glucose Arterial Blood Ionized Calcium Ur Specific [place] Urine WBC (Auto) Vancomycin Trough Coronavirus (PCR) 12/04/20 12/04/20 12/04/20 04:00 05:20 05:34 WBC RBC Hgb Hct MCHC RDW Plt Count Lymph % (Auto) [place] % (Auto) Lymph # (Auto) [place] # (Auto) Baso # (Auto) Seg Neutrophils % Seg Neuts % (Manual) Lymphocytes % (Manual) Nucleated RBC % Seg Neutrophils # Seg Neutrophils # Man Lymphocytes # (Manual) D-Dimer ABG pH POC ABG pCO2 84.4 H POC ABG pO2 68.0 L ABG pO2 ABG HCO3 ABG O2 Saturation ABG Base Excess ABG Hemoglobin 11.6 L ABG Oxyhemoglobin ABG Sodium 130.9 L ABG Potassium ABG Chloride 90.0 L ABG Glucose 244 H Oxyhemoglobin Carboxyhemoglobin Sodium Potassium Chloride Carbon Dioxide BUN Creatinine Glucose POC Glucose 241 H 213 H Hemoglobin A1c Lactic Acid Calcium Magnesium Ferritin Total Bilirubin AST ALT Alkaline Phosphatase Lactate Dehydrogenase Total Creatine Kinase C-Reactive Protein Total Protein Albumin Triglycerides Arterial Blood Glucose 244 H Arterial Blood Ionized Calcium 4.4 L Ur Specific [place] Urine WBC (Auto) Vancomycin Trough Coronavirus (PCR) 12/04/20 12/04/20 12/04/20 11:36 16:53 23:32 WBC RBC Hgb Hct MCHC RDW Plt Count Lymph % (Auto) [place] % (Auto) Lymph # (Auto) [place] # (Auto) Baso # (Auto) Seg Neutrophils % Seg Neuts % (Manual) Lymphocytes % (Manual) Nucleated RBC % Seg Neutrophils # Seg Neutrophils # Man Lymphocytes # (Manual) D-Dimer ABG pH POC ABG pCO2 POC ABG pO2 ABG pO2 ABG HCO3 ABG O2 Saturation ABG Base Excess ABG Hemoglobin ABG Oxyhemoglobin ABG Sodium ABG Potassium ABG Chloride ABG Glucose Oxyhemoglobin Carboxyhemoglobin Sodium Potassium Chloride Carbon Dioxide BUN Creatinine Glucose POC Glucose 196 H 127 H 230 H Hemoglobin A1c Lactic Acid Calcium Magnesium Ferritin Total Bilirubin AST ALT Alkaline Phosphatase Lactate Dehydrogenase Total Creatine Kinase C-Reactive Protein Total Protein Albumin Triglycerides Arterial Blood Glucose Arterial Blood Ionized Calcium Ur Specific [place] Urine WBC (Auto) Vancomycin Trough Coronavirus (PCR) 12/04/20 12/05/20 12/05/20 Unknown 04:16 05:21 WBC RBC Hgb Hct MCHC RDW Plt Count Lymph % (Auto) [place] % (Auto) Lymph # (Auto) [place] # (Auto) Baso # (Auto) Seg Neutrophils % Seg Neuts % (Manual) Lymphocytes % (Manual) Nucleated RBC % Seg Neutrophils # Seg Neutrophils # Man Lymphocytes # (Manual) D-Dimer ABG pH POC ABG pCO2 86.7 H POC ABG pO2 58.0 L ABG pO2 ABG HCO3 ABG O2 Saturation ABG Base Excess ABG Hemoglobin 11.6 L ABG Oxyhemoglobin 89 L ABG Sodium 130.1 L ABG Potassium 4.9 H ABG Chloride 89.0 L ABG Glucose 254 H Oxyhemoglobin Carboxyhemoglobin Sodium 136 L Potassium Chloride 90.0 L Carbon Dioxide 46 H* BUN 24 H Creatinine 0.3 L Glucose 226 H POC Glucose 213 H Hemoglobin A1c Lactic Acid Calcium 7.6 L Magnesium Ferritin Total Bilirubin AST 46 H ALT 78 H Alkaline Phosphatase 172 H Lactate Dehydrogenase Total Creatine Kinase C-Reactive Protein Total Protein 6.0 L Albumin 2.8 L Triglycerides 156 H Arterial Blood Glucose 254 H Arterial Blood Ionized Calcium 4.4 L Ur Specific [place] Urine WBC (Auto) Vancomycin Trough Coronavirus (PCR) 12/05/20 12/05/20 12/05/20 11:22 17:26 23:38 WBC RBC Hgb Hct MCHC RDW Plt Count Lymph % (Auto) [place] % (Auto) Lymph # (Auto) [place] # (Auto) Baso # (Auto) Seg Neutrophils % Seg Neuts % (Manual) Lymphocytes % (Manual) Nucleated RBC % Seg Neutrophils # Seg Neutrophils # Man Lymphocytes # (Manual) D-Dimer ABG pH POC ABG pCO2 POC ABG pO2 ABG pO2 ABG HCO3 ABG O2 Saturation ABG Base Excess ABG Hemoglobin ABG Oxyhemoglobin ABG Sodium ABG Potassium ABG Chloride ABG Glucose Oxyhemoglobin Carboxyhemoglobin Sodium Potassium Chloride Carbon Dioxide BUN Creatinine Glucose POC Glucose 212 H 157 H 204 H Hemoglobin A1c Lactic Acid Calcium Magnesium Ferritin Total Bilirubin AST ALT Alkaline Phosphatase Lactate Dehydrogenase Total Creatine Kinase C-Reactive Protein Total Protein Albumin Triglycerides Arterial Blood Glucose Arterial Blood Ionized Calcium Ur Specific [place] Urine WBC (Auto) Vancomycin Trough Coronavirus (PCR) 12/06/20 12/06/20 12/06/20 04:31 04:31 05:12 WBC 17.0 H RBC 3.63 L Hgb 10.8 L D Hct 32.6 L D MCHC RDW Plt Count Lymph % (Auto) [place] % (Auto) Lymph # (Auto) [place] # (Auto) Baso # (Auto) Seg Neutrophils % Seg Neuts % (Manual) Lymphocytes % (Manual) Nucleated RBC % Seg Neutrophils # Seg Neutrophils # Man Lymphocytes # (Manual) D-Dimer ABG pH POC ABG pCO2 85.9 H POC ABG pO2 57.6 L ABG pO2 ABG HCO3 ABG O2 Saturation ABG Base Excess ABG Hemoglobin ABG Oxyhemoglobin ABG Sodium 131.2 L ABG Potassium 4.8 H ABG Chloride 86.0 L ABG Glucose 200 H Oxyhemoglobin Carboxyhemoglobin Sodium 134 L Potassium 5.1 H Chloride 88.4 L Carbon Dioxide 47 H* BUN 23 H Creatinine 0.3 L Glucose 206 H POC Glucose Hemoglobin A1c Lactic Acid Calcium 8.3 L Magnesium Ferritin Total Bilirubin AST 48 H ALT 91 H Alkaline Phosphatase 140 H Lactate Dehydrogenase Total Creatine Kinase C-Reactive Protein Total Protein 5.7 L Albumin 2.6 L Triglycerides Arterial Blood Glucose 200 H Arterial Blood Ionized Calcium 4.4 L Ur Specific [place] Urine WBC (Auto) Vancomycin Trough Coronavirus (PCR) 12/06/20 12/06/20 12/06/20 05:24 12:18 16:45 WBC RBC Hgb Hct MCHC RDW Plt Count Lymph % (Auto) [place] % (Auto) Lymph # (Auto) [place] # (Auto) Baso # (Auto) Seg Neutrophils % Seg Neuts % (Manual) Lymphocytes % (Manual) Nucleated RBC % Seg Neutrophils # Seg Neutrophils # Man Lymphocytes # (Manual) D-Dimer ABG pH POC ABG pCO2 POC ABG pO2 ABG pO2 ABG HCO3 ABG O2 Saturation ABG Base Excess ABG Hemoglobin ABG Oxyhemoglobin ABG Sodium ABG Potassium ABG Chloride ABG Glucose Oxyhemoglobin Carboxyhemoglobin Sodium Potassium Chloride Carbon Dioxide BUN Creatinine Glucose POC Glucose 186 H 187 H 150 H Hemoglobin A1c Lactic Acid Calcium Magnesium Ferritin Total Bilirubin AST ALT Alkaline Phosphatase Lactate Dehydrogenase Total Creatine Kinase C-Reactive Protein Total Protein Albumin Triglycerides Arterial Blood Glucose Arterial Blood Ionized Calcium Ur Specific [place] Urine WBC (Auto) Vancomycin Trough Coronavirus (PCR) 12/06/20 12/07/20 12/07/20 23:43 05:20 05:21 WBC RBC Hgb Hct MCHC RDW Plt Count Lymph % (Auto) [place] % (Auto) Lymph # (Auto) [place] # (Auto) Baso # (Auto) Seg Neutrophils % Seg Neuts % (Manual) Lymphocytes % (Manual) Nucleated RBC % Seg Neutrophils # Seg Neutrophils # Man Lymphocytes # (Manual) D-Dimer ABG pH POC ABG pCO2 POC ABG pO2 ABG pO2 48.4 L ABG HCO3 50.8 H ABG O2 Saturation 86.2 L ABG Base Excess 22.4 H ABG Hemoglobin 11.0 L ABG Oxyhemoglobin ABG Sodium ABG Potassium ABG Chloride ABG Glucose Oxyhemoglobin 84.0 L Carboxyhemoglobin Sodium Potassium Chloride Carbon Dioxide BUN Creatinine Glucose POC Glucose 153 H 107 H Hemoglobin A1c Lactic Acid Calcium Magnesium Ferritin Total Bilirubin AST ALT Alkaline Phosphatase Lactate Dehydrogenase Total Creatine Kinase C-Reactive Protein Total Protein Albumin Triglycerides Arterial Blood Glucose Arterial Blood Ionized Calcium Ur Specific [place] Urine WBC (Auto) Vancomycin Trough Coronavirus (PCR) 12/07/20 12/07/20 12/07/20 13:20 14:28 17:35 WBC RBC Hgb Hct MCHC RDW Plt Count Lymph % (Auto) [place] % (Auto) Lymph # (Auto) [place] # (Auto) Baso # (Auto) Seg Neutrophils % Seg Neuts % (Manual) Lymphocytes % (Manual) Nucleated RBC % Seg Neutrophils # Seg Neutrophils # Man Lymphocytes # (Manual) D-Dimer ABG pH POC ABG pCO2 74.1 H POC ABG pO2 68.5 L ABG pO2 ABG HCO3 ABG O2 Saturation ABG Base Excess ABG Hemoglobin 10.7 L ABG Oxyhemoglobin 91.9 L ABG Sodium 132.2 L ABG Potassium 4.7 H ABG Chloride 88.0 L ABG Glucose 138 H Oxyhemoglobin Carboxyhemoglobin Sodium 134 L Potassium Chloride 87.4 L Carbon Dioxide 49 H* BUN Creatinine 0.2 L Glucose 132 H POC Glucose 176 H Hemoglobin A1c Lactic Acid Calcium 7.7 L Magnesium Ferritin Total Bilirubin AST ALT Alkaline Phosphatase Lactate Dehydrogenase Total Creatine Kinase C-Reactive Protein Total Protein Albumin Triglycerides Arterial Blood Glucose 138 H Arterial Blood Ionized Calcium 4.0 L Ur Specific [place] Urine WBC (Auto) Vancomycin Trough Coronavirus (PCR) 12/07/20 12/08/20 12/08/20 23:44 04:12 05:29 WBC RBC Hgb Hct MCHC RDW Plt Count Lymph % (Auto) [place] % (Auto) Lymph # (Auto) [place] # (Auto) Baso # (Auto) Seg Neutrophils % Seg Neuts % (Manual) Lymphocytes % (Manual) Nucleated RBC % Seg Neutrophils # Seg Neutrophils # Man Lymphocytes # (Manual) D-Dimer ABG pH POC ABG pCO2 POC ABG pO2 ABG pO2 69.7 L ABG HCO3 50.1 H ABG O2 Saturation ABG Base Excess 21.6 H ABG Hemoglobin 10.9 L ABG Oxyhemoglobin ABG Sodium ABG Potassium ABG Chloride ABG Glucose Oxyhemoglobin 93.2 L Carboxyhemoglobin Sodium Potassium Chloride Carbon Dioxide BUN Creatinine Glucose POC Glucose 143 H 143 H Hemoglobin A1c Lactic Acid Calcium Magnesium Ferritin Total Bilirubin AST ALT Alkaline Phosphatase Lactate Dehydrogenase Total Creatine Kinase C-Reactive Protein Total Protein Albumin Triglycerides Arterial Blood Glucose Arterial Blood Ionized Calcium Ur Specific [place] Urine WBC (Auto) Vancomycin Trough Coronavirus (PCR) 12/08/20 12/08/20 12/09/20 06:10 06:10 04:24 WBC 12.0 H RBC 3.18 L Hgb 9.5 L Hct 28.9 L MCHC RDW Plt Count Lymph % (Auto) [place] % (Auto) Lymph # (Auto) [place] # (Auto) Baso # (Auto) Seg Neutrophils % Seg Neuts % (Manual) 95.0 H Lymphocytes % (Manual) 3.0 L Nucleated RBC % Seg Neutrophils # Seg Neutrophils # Man 11.4 H Lymphocytes # (Manual) 0.4 L D-Dimer ABG pH POC ABG pCO2 76.2 H POC ABG pO2 52.8 L ABG pO2 ABG HCO3 ABG O2 Saturation ABG Base Excess ABG Hemoglobin 11.7 L ABG Oxyhemoglobin ABG Sodium 132.0 L ABG Potassium ABG Chloride 87.0 L ABG Glucose 118 H Oxyhemoglobin Carboxyhemoglobin Sodium 133 L Potassium Chloride 86.3 L Carbon Dioxide 53 H* BUN Creatinine 0.2 L Glucose 156 H POC Glucose Hemoglobin A1c Lactic Acid Calcium 7.6 L Magnesium Ferritin Total Bilirubin AST ALT Alkaline Phosphatase Lactate Dehydrogenase Total Creatine Kinase C-Reactive Protein Total Protein Albumin Triglycerides Arterial Blood Glucose 118 H Arterial Blood Ionized Calcium 4.2 L Ur Specific [place] Urine WBC (Auto) Vancomycin Trough Coronavirus (PCR) 12/09/20 12/09/20 12/09/20 05:44 06:40 06:40 WBC 13.5 H RBC 3.28 L Hgb 9.7 L Hct 29.9 L MCHC RDW Plt Count Lymph % (Auto) [place] % (Auto) Lymph # (Auto) [place] # (Auto) Baso # (Auto) Seg Neutrophils % Seg Neuts % (Manual) Lymphocytes % (Manual) Nucleated RBC % Seg Neutrophils # Seg Neutrophils # Man Lymphocytes # (Manual) D-Dimer ABG pH POC ABG pCO2 POC ABG pO2 ABG pO2 ABG HCO3 ABG O2 Saturation ABG Base Excess ABG Hemoglobin ABG Oxyhemoglobin ABG Sodium ABG Potassium ABG Chloride ABG Glucose Oxyhemoglobin Carboxyhemoglobin Sodium 135 L Potassium Chloride 89.5 L Carbon Dioxide 52 H* BUN Creatinine 0.3 L Glucose 114 H POC Glucose 117 H Hemoglobin A1c Lactic Acid Calcium 7.6 L Magnesium Ferritin Total Bilirubin AST ALT Alkaline Phosphatase Lactate Dehydrogenase Total Creatine Kinase C-Reactive Protein Total Protein Albumin Triglycerides Arterial Blood Glucose Arterial Blood Ionized Calcium Ur Specific [place] Urine WBC (Auto) Vancomycin Trough Coronavirus (PCR) 12/09/20 12/09/20 12/10/20 16:42 21:11 04:28 WBC RBC Hgb Hct MCHC RDW Plt Count Lymph % (Auto) [place] % (Auto) Lymph # (Auto) [place] # (Auto) Baso # (Auto) Seg Neutrophils % Seg Neuts % (Manual) Lymphocytes % (Manual) Nucleated RBC % Seg Neutrophils # Seg Neutrophils # Man Lymphocytes # (Manual) D-Dimer ABG pH POC ABG pCO2 72.5 H 69.4 H 76.9 H POC ABG pO2 50.4 L 80.6 L 60.2 L ABG pO2 ABG HCO3 ABG O2 Saturation ABG Base Excess ABG Hemoglobin 10.4 L 10.7 L 10 L ABG Oxyhemoglobin 84.3 L 89.7 L ABG Sodium 133.7 L 133.7 L 133.8 L ABG Potassium ABG Chloride 90.0 L 91.0 L 91.0 L ABG Glucose 116 H 96 H 57 L Oxyhemoglobin Carboxyhemoglobin 0.4 L Sodium Potassium Chloride Carbon Dioxide BUN Creatinine Glucose POC Glucose Hemoglobin A1c Lactic Acid Calcium Magnesium Ferritin Total Bilirubin AST ALT Alkaline Phosphatase Lactate Dehydrogenase Total Creatine Kinase C-Reactive Protein Total Protein Albumin Triglycerides Arterial Blood Glucose 116 H 96 H 57 L Arterial Blood Ionized Calcium 4.2 L 4.3 L 4.2 L Ur Specific [place] Urine WBC (Auto) Vancomycin Trough Coronavirus (PCR) 12/10/20 12/10/20 12/10/20 05:09 05:41 11:50 WBC RBC Hgb Hct MCHC RDW Plt Count Lymph % (Auto) [place] % (Auto) Lymph # (Auto) [place] # (Auto) Baso # (Auto) Seg Neutrophils % Seg Neuts % (Manual) Lymphocytes % (Manual) Nucleated RBC % Seg Neutrophils # Seg Neutrophils # Man Lymphocytes # (Manual) D-Dimer ABG pH POC ABG pCO2 POC ABG pO2 ABG pO2 ABG HCO3 ABG O2 Saturation ABG Base Excess ABG Hemoglobin ABG Oxyhemoglobin ABG Sodium ABG Potassium ABG Chloride ABG Glucose Oxyhemoglobin Carboxyhemoglobin Sodium Potassium Chloride Carbon Dioxide BUN Creatinine Glucose POC Glucose 41 L 138 H 106 H Hemoglobin A1c Lactic Acid Calcium Magnesium Ferritin Total Bilirubin AST ALT Alkaline Phosphatase Lactate Dehydrogenase Total Creatine Kinase C-Reactive Protein Total Protein Albumin Triglycerides Arterial Blood Glucose Arterial Blood Ionized Calcium Ur Specific [place] Urine WBC (Auto) Vancomycin Trough Coronavirus (PCR) 12/10/20 12/10/20 12/11/20 17:34 23:25 04:06 WBC RBC Hgb Hct MCHC RDW Plt Count Lymph % (Auto) [place] % (Auto) Lymph # (Auto) [place] # (Auto) Baso # (Auto) Seg Neutrophils % Seg Neuts % (Manual) Lymphocytes % (Manual) Nucleated RBC % Seg Neutrophils # Seg Neutrophils # Man Lymphocytes # (Manual) D-Dimer ABG pH POC ABG pCO2 71.0 H POC ABG pO2 56.8 L ABG pO2 ABG HCO3 ABG O2 Saturation ABG Base Excess ABG Hemoglobin 10.1 L ABG Oxyhemoglobin 88.5 L ABG Sodium 132.3 L ABG Potassium ABG Chloride 91.0 L ABG Glucose 168 H Oxyhemoglobin Carboxyhemoglobin Sodium Potassium Chloride Carbon Dioxide BUN Creatinine Glucose POC Glucose 121 H 167 H Hemoglobin A1c Lactic Acid Calcium Magnesium Ferritin Total Bilirubin AST ALT Alkaline Phosphatase Lactate Dehydrogenase Total Creatine Kinase C-Reactive Protein Total Protein Albumin Triglycerides Arterial Blood Glucose 168 H Arterial Blood Ionized Calcium 4.1 L Ur Specific [place] Urine WBC (Auto) Vancomycin Trough Coronavirus (PCR) 12/11/20 12/11/20 12/11/20 05:21 11:44 15:40 WBC RBC Hgb Hct MCHC RDW Plt Count Lymph % (Auto) [place] % (Auto) Lymph # (Auto) [place] # (Auto) Baso # (Auto) Seg Neutrophils % Seg Neuts % (Manual) Lymphocytes % (Manual) Nucleated RBC % Seg Neutrophils # Seg Neutrophils # Man Lymphocytes # (Manual) D-Dimer ABG pH 7.454 H POC ABG pCO2 58.6 H POC ABG pO2 50.7 L ABG pO2 ABG HCO3 ABG O2 Saturation ABG Base Excess ABG Hemoglobin 10.1 L ABG Oxyhemoglobin 86.2 L ABG Sodium 131.2 L ABG Potassium ABG Chloride 92.0 L ABG Glucose 197 H Oxyhemoglobin Carboxyhemoglobin Sodium Potassium Chloride Carbon Dioxide BUN Creatinine Glucose POC Glucose 149 H 202 H Hemoglobin A1c Lactic Acid Calcium Magnesium Ferritin Total Bilirubin AST ALT Alkaline Phosphatase Lactate Dehydrogenase Total Creatine Kinase C-Reactive Protein Total Protein Albumin Triglycerides Arterial Blood Glucose 197 H Arterial Blood Ionized Calcium 4.2 L Ur Specific [place] [place] WBC (Auto) Vancomycin Trough Coronavirus (PCR) 12/11/20 12/11/20 12/12/20 17:09 23:16 05:09 WBC RBC Hgb Hct MCHC RDW Plt Count Lymph % (Auto) [place] % (Auto) Lymph # (Auto) [place] # (Auto) Baso # (Auto) Seg Neutrophils % Seg Neuts % (Manual) Lymphocytes % (Manual) Nucleated RBC % Seg Neutrophils # Seg Neutrophils # Man Lymphocytes # (Manual) D-Dimer ABG pH POC ABG pCO2 63.1 H POC ABG pO2 62.6 L ABG pO2 ABG HCO3 ABG O2 Saturation ABG Base Excess ABG Hemoglobin 10.3 L ABG Oxyhemoglobin ABG Sodium 130.3 L ABG Potassium 4.6 H ABG Chloride 92.0 L ABG Glucose 215 H Oxyhemoglobin Carboxyhemoglobin Sodium Potassium Chloride Carbon Dioxide BUN Creatinine Glucose POC Glucose 181 H 192 H Hemoglobin A1c Lactic Acid Calcium Magnesium Ferritin Total Bilirubin AST ALT Alkaline Phosphatase Lactate Dehydrogenase Total Creatine Kinase C-Reactive Protein Total Protein Albumin Triglycerides Arterial Blood Glucose 215 H Arterial Blood Ionized Calcium 4.4 L Ur Specific [place] Urine WBC (Auto) Vancomycin Trough Coronavirus (PCR) 12/12/20 12/12/20 12/12/20 05:16 05:47 11:41 WBC RBC Hgb Hct MCHC RDW Plt Count Lymph % (Auto) [place] % (Auto) Lymph # (Auto) [place] # (Auto) Baso # (Auto) Seg Neutrophils % Seg Neuts % (Manual) Lymphocytes % (Manual) Nucleated RBC % Seg Neutrophils # Seg Neutrophils # Man Lymphocytes # (Manual) D-Dimer ABG pH POC ABG pCO2 POC ABG pO2 ABG pO2 ABG HCO3 ABG O2 Saturation ABG Base Excess ABG Hemoglobin ABG Oxyhemoglobin ABG Sodium ABG Potassium ABG Chloride ABG Glucose Oxyhemoglobin Carboxyhemoglobin Sodium Potassium Chloride Carbon Dioxide BUN Creatinine Glucose POC Glucose 208 H 218 H Hemoglobin A1c Lactic Acid Calcium Magnesium Ferritin Total Bilirubin AST ALT Alkaline Phosphatase Lactate Dehydrogenase Total Creatine Kinase C-Reactive Protein Total Protein Albumin Triglycerides 150 H Arterial Blood Glucose Arterial Blood Ionized Calcium Ur Specific [place] Urine WBC (Auto) Vancomycin Trough Coronavirus (PCR) 12/12/20 12/12/20 12/13/20 17:05 23:18 03:36 WBC RBC Hgb Hct MCHC RDW Plt Count Lymph % (Auto) [place] % (Auto) Lymph # (Auto) [place] # (Auto) Baso # (Auto) Seg Neutrophils % Seg Neuts % (Manual) Lymphocytes % (Manual) Nucleated RBC % Seg Neutrophils # Seg Neutrophils # Man Lymphocytes # (Manual) D-Dimer ABG pH POC ABG pCO2 61.5 H POC ABG pO2 77.6 L ABG pO2 ABG HCO3 ABG O2 Saturation ABG Base Excess ABG Hemoglobin 10.2 L ABG Oxyhemoglobin ABG Sodium 127.5 L ABG Potassium ABG Chloride 91.0 L ABG Glucose 232 H Oxyhemoglobin Carboxyhemoglobin Sodium Potassium Chloride Carbon Dioxide BUN Creatinine Glucose POC Glucose 187 H 176 H Hemoglobin A1c Lactic Acid Calcium Magnesium Ferritin Total Bilirubin AST ALT Alkaline Phosphatase Lactate Dehydrogenase Total Creatine Kinase C-Reactive Protein Total Protein Albumin Triglycerides Arterial Blood Glucose 232 H Arterial Blood Ionized Calcium 4.2 L Ur Specific [place] Urine WBC (Auto) Vancomycin Trough Coronavirus (PCR) 12/13/20 12/13/20 12/13/20 05:13 10:00 11:30 WBC RBC 3.50 L Hgb 10.5 L Hct 31.9 L MCHC RDW Plt Count Lymph % (Auto) [place] % (Auto) Lymph # (Auto) [place] # (Auto) Baso # (Auto) Seg Neutrophils % Seg Neuts % (Manual) 96.0 H Lymphocytes % (Manual) Nucleated RBC % Seg Neutrophils # Seg Neutrophils # Man 9.2 H Lymphocytes # (Manual) 0.0 L D-Dimer ABG pH POC ABG pCO2 POC ABG pO2 ABG pO2 ABG HCO3 ABG O2 Saturation ABG Base Excess ABG Hemoglobin ABG Oxyhemoglobin ABG Sodium ABG Potassium ABG Chloride ABG Glucose Oxyhemoglobin Carboxyhemoglobin Sodium Potassium Chloride Carbon Dioxide BUN Creatinine Glucose POC Glucose 204 H Hemoglobin A1c Lactic Acid Calcium Magnesium Ferritin Total Bilirubin AST ALT Alkaline Phosphatase Lactate Dehydrogenase Total Creatine Kinase C-Reactive Protein Total Protein Albumin Triglycerides Arterial Blood Glucose Arterial Blood Ionized Calcium Ur Specific [place] Urine WBC (Auto) Vancomycin Trough Coronavirus (PCR) Positive A 12/13/20 12/13/20 12/13/20 11:30 12:01 18:04 WBC RBC Hgb Hct MCHC RDW Plt Count Lymph % (Auto) [place] % (Auto) Lymph # (Auto) [place] # (Auto) Baso # (Auto) Seg Neutrophils % Seg Neuts % (Manual) Lymphocytes % (Manual) Nucleated RBC % Seg Neutrophils # Seg Neutrophils # Man Lymphocytes # (Manual) D-Dimer ABG pH POC ABG pCO2 POC ABG pO2 ABG pO2 ABG HCO3 ABG O2 Saturation ABG Base Excess ABG Hemoglobin ABG Oxyhemoglobin ABG Sodium ABG Potassium ABG Chloride ABG Glucose Oxyhemoglobin Carboxyhemoglobin Sodium 132 L Potassium Chloride 90.1 L Carbon Dioxide 41 H* D BUN Creatinine 0.2 L Glucose 249 H POC Glucose 224 H 172 H Hemoglobin A1c Lactic Acid Calcium 7.4 L Magnesium Ferritin Total Bilirubin AST ALT 61 H Alkaline Phosphatase Lactate Dehydrogenase Total Creatine Kinase C-Reactive Protein Total Protein 5.7 L Albumin 2.3 L Triglycerides Arterial Blood Glucose Arterial Blood Ionized Calcium Ur Specific [place] Urine WBC (Auto) Vancomycin Trough Coronavirus (PCR) 12/13/20 12/14/20 12/14/20 23:37 04:05 04:35 WBC RBC 3.37 L Hgb 10.1 L Hct 30.7 L MCHC RDW 15.4 H Plt Count Lymph % (Auto) [place] % (Auto) Lymph # (Auto) [place] # (Auto) Baso # (Auto) Seg Neutrophils % Seg Neuts % (Manual) 93.0 H Lymphocytes % (Manual) 3.0 L Nucleated RBC % Seg Neutrophils # Seg Neutrophils # Man 7.8 H Lymphocytes # (Manual) 0.3 L D-Dimer ABG pH POC ABG pCO2 72.2 H POC ABG pO2 61.5 L ABG pO2 ABG HCO3 ABG O2 Saturation ABG Base Excess ABG Hemoglobin ABG Oxyhemoglobin 89.9 L ABG Sodium 131.4 L ABG Potassium ABG Chloride 91.0 L ABG Glucose 205 H Oxyhemoglobin Carboxyhemoglobin Sodium Potassium Chloride Carbon Dioxide BUN Creatinine Glucose POC Glucose 200 H Hemoglobin A1c Lactic Acid Calcium Magnesium Ferritin Total Bilirubin AST ALT Alkaline Phosphatase Lactate Dehydrogenase Total Creatine Kinase C-Reactive Protein Total Protein Albumin Triglycerides Arterial Blood Glucose 205 H Arterial Blood Ionized Calcium 4.3 L Ur Specific [place] Urine WBC (Auto) Vancomycin Trough Coronavirus (PCR) 12/14/20 12/14/20 12/14/20 04:35 05:12 11:31 WBC RBC Hgb Hct MCHC RDW Plt Count Lymph % (Auto) [place] % (Auto) Lymph # (Auto) [place] # (Auto) Baso # (Auto) Seg Neutrophils % Seg Neuts % (Manual) Lymphocytes % (Manual) Nucleated RBC % Seg Neutrophils # Seg Neutrophils # Man Lymphocytes # (Manual) D-Dimer ABG pH POC ABG pCO2 POC ABG pO2 ABG pO2 ABG HCO3 ABG O2 Saturation ABG Base Excess ABG Hemoglobin ABG Oxyhemoglobin ABG Sodium ABG Potassium ABG Chloride ABG Glucose Oxyhemoglobin Carboxyhemoglobin Sodium 135 L Potassium Chloride 92.5 L Carbon Dioxide 38 H BUN Creatinine 0.2 L Glucose 184 H POC Glucose 176 H 212 H Hemoglobin A1c Lactic Acid Calcium 7.7 L Magnesium Ferritin Total Bilirubin AST ALT Alkaline Phosphatase Lactate Dehydrogenase Total Creatine Kinase C-Reactive Protein Total Protein Albumin Triglycerides Arterial Blood Glucose Arterial Blood Ionized Calcium Ur Specific [place] Urine WBC (Auto) Vancomycin Trough Coronavirus (PCR) 12/14/20 12/14/20 12/15/20 17:30 23:30 03:19 WBC RBC Hgb Hct MCHC RDW Plt Count Lymph % (Auto) [place] % (Auto) Lymph # (Auto) [place] # (Auto) Baso # (Auto) Seg Neutrophils % Seg Neuts % (Manual) Lymphocytes % (Manual) Nucleated RBC % Seg Neutrophils # Seg Neutrophils # Man Lymphocytes # (Manual) D-Dimer ABG pH POC ABG pCO2 62.0 H POC ABG pO2 66.0 L ABG pO2 ABG HCO3 ABG O2 Saturation ABG Base Excess ABG Hemoglobin 10.3 L ABG Oxyhemoglobin ABG Sodium 130.5 L ABG Potassium ABG Chloride 91.0 L ABG Glucose 166 H Oxyhemoglobin Carboxyhemoglobin Sodium Potassium Chloride Carbon Dioxide BUN Creatinine Glucose POC Glucose 222 H 176 H Hemoglobin A1c Lactic Acid Calcium Magnesium Ferritin Total Bilirubin AST ALT Alkaline Phosphatase Lactate Dehydrogenase Total Creatine Kinase C-Reactive Protein Total Protein Albumin Triglycerides Arterial Blood Glucose 166 H Arterial Blood Ionized Calcium 4.4 L Ur Specific [place] Urine WBC (Auto) Vancomycin Trough Coronavirus (PCR) 12/15/20 12/15/20 12/15/20 05:24 11:39 17:30 WBC RBC Hgb Hct MCHC RDW Plt Count Lymph % (Auto) [place] % (Auto) Lymph # (Auto) [place] # (Auto) Baso # (Auto) Seg Neutrophils % Seg Neuts % (Manual) Lymphocytes % (Manual) Nucleated RBC % Seg Neutrophils # Seg Neutrophils # Man Lymphocytes # (Manual) D-Dimer ABG pH POC ABG pCO2 POC ABG pO2 ABG pO2 ABG HCO3 ABG O2 Saturation ABG Base Excess ABG Hemoglobin ABG Oxyhemoglobin ABG Sodium ABG Potassium ABG Chloride ABG Glucose Oxyhemoglobin Carboxyhemoglobin Sodium Potassium Chloride Carbon Dioxide BUN Creatinine Glucose POC Glucose 160 H 140 H 246 H Hemoglobin A1c Lactic Acid Calcium Magnesium Ferritin Total Bilirubin AST ALT Alkaline Phosphatase Lactate Dehydrogenase Total Creatine Kinase C-Reactive Protein Total Protein Albumin Triglycerides Arterial Blood Glucose Arterial Blood Ionized Calcium Ur Specific [place] Urine WBC (Auto) Vancomycin Trough Coronavirus (PCR) 12/15/20 12/16/20 12/16/20 23:42 03:54 04:46 WBC RBC 3.48 L Hgb 10.6 L Hct 31.5 L MCHC RDW 15.8 H Plt Count Lymph % (Auto) [place] % (Auto) Lymph # (Auto) [place] # (Auto) Baso # (Auto) Seg Neutrophils % Seg Neuts % (Manual) Lymphocytes % (Manual) Nucleated RBC % Seg Neutrophils # Seg Neutrophils # Man Lymphocytes # (Manual) D-Dimer ABG pH POC ABG pCO2 63.6 H POC ABG pO2 55.0 L ABG pO2 ABG HCO3 ABG O2 Saturation ABG Base Excess ABG Hemoglobin 11.1 L ABG Oxyhemoglobin 87.3 L ABG Sodium 130.7 L ABG Potassium ABG Chloride 89.0 L ABG Glucose 211 H Oxyhemoglobin Carboxyhemoglobin Sodium Potassium Chloride Carbon Dioxide BUN Creatinine Glucose POC Glucose 139 H Hemoglobin A1c Lactic Acid Calcium Magnesium Ferritin Total Bilirubin AST ALT Alkaline Phosphatase Lactate Dehydrogenase Total Creatine Kinase C-Reactive Protein Total Protein Albumin Triglycerides Arterial Blood Glucose 211 H Arterial Blood Ionized Calcium 4.3 L Ur Specific [place] Urine WBC (Auto) Vancomycin Trough Coronavirus (PCR) 12/16/20 12/16/20 12/16/20 04:46 05:34 11:40 WBC RBC Hgb Hct MCHC RDW Plt Count Lymph % (Auto) [place] % (Auto) Lymph # (Auto) [place] # (Auto) Baso # (Auto) Seg Neutrophils % Seg Neuts % (Manual) Lymphocytes % (Manual) Nucleated RBC % Seg Neutrophils # Seg Neutrophils # Man Lymphocytes # (Manual) D-Dimer ABG pH POC ABG pCO2 POC ABG pO2 ABG pO2 ABG HCO3 ABG O2 Saturation ABG Base Excess ABG Hemoglobin ABG Oxyhemoglobin ABG Sodium ABG Potassium ABG Chloride ABG Glucose Oxyhemoglobin Carboxyhemoglobin Sodium 134 L Potassium Chloride 89.7 L Carbon Dioxide 38 H BUN Creatinine < 0.2 L Glucose 203 H POC Glucose 155 H 239 H Hemoglobin A1c Lactic Acid Calcium 7.5 L Magnesium Ferritin Total Bilirubin AST ALT Alkaline Phosphatase Lactate Dehydrogenase Total Creatine Kinase C-Reactive Protein Total Protein Albumin Triglycerides Arterial Blood Glucose Arterial Blood Ionized Calcium Ur Specific [place] Urine WBC (Auto) Vancomycin Trough Coronavirus (PCR) 12/16/20 12/16/20 12/17/20 17:42 23:45 03:59 WBC RBC Hgb Hct MCHC RDW Plt Count Lymph % (Auto) [place] % (Auto) Lymph # (Auto) [place] # (Auto) Baso # (Auto) Seg Neutrophils % Seg Neuts % (Manual) Lymphocytes % (Manual) Nucleated RBC % Seg Neutrophils # Seg Neutrophils # Man Lymphocytes # (Manual) D-Dimer ABG pH POC ABG pCO2 71.9 H POC ABG pO2 57.5 L ABG pO2 ABG HCO3 ABG O2 Saturation ABG Base Excess ABG Hemoglobin 10.8 L ABG Oxyhemoglobin 87.7 L ABG Sodium 131.5 L ABG Potassium ABG Chloride 90.0 L ABG Glucose 199 H Oxyhemoglobin Carboxyhemoglobin Sodium Potassium Chloride Carbon Dioxide BUN Creatinine Glucose POC Glucose 228 H 187 H Hemoglobin A1c Lactic Acid Calcium Magnesium Ferritin Total Bilirubin AST ALT Alkaline Phosphatase Lactate Dehydrogenase Total Creatine Kinase C-Reactive Protein Total Protein Albumin Triglycerides Arterial Blood Glucose 199 H Arterial Blood Ionized Calcium 4.4 L Ur Specific [place] Urine WBC (Auto) Vancomycin Trough Coronavirus (PCR) 12/17/20 12/17/20 12/17/20 05:35 11:55 12:40 WBC RBC Hgb Hct MCHC RDW Plt Count Lymph % (Auto) [place] % (Auto) Lymph # (Auto) [place] # (Auto) Baso # (Auto) Seg Neutrophils % Seg Neuts % (Manual) Lymphocytes % (Manual) Nucleated RBC % Seg Neutrophils # Seg Neutrophils # Man Lymphocytes # (Manual) D-Dimer ABG pH POC ABG pCO2 POC ABG pO2 ABG pO2 ABG HCO3 ABG O2 Saturation ABG Base Excess ABG Hemoglobin ABG Oxyhemoglobin ABG Sodium ABG Potassium ABG Chloride ABG Glucose Oxyhemoglobin Carboxyhemoglobin Sodium Potassium Chloride 95.2 L Carbon Dioxide 41 H* BUN Creatinine 0.2 L Glucose 138 H POC Glucose 159 H 181 H Hemoglobin A1c Lactic Acid Calcium 7.3 L Magnesium Ferritin Total Bilirubin AST ALT Alkaline Phosphatase Lactate Dehydrogenase Total Creatine Kinase C-Reactive Protein Total Protein Albumin Triglycerides Arterial Blood Glucose Arterial Blood Ionized Calcium Ur Specific [place] Urine WBC (Auto) Vancomycin Trough Coronavirus (PCR) 12/17/20 12/17/20 12/17/20 17:25 17:25 17:51 WBC RBC Hgb Hct MCHC RDW Plt Count Lymph % (Auto) [place] % (Auto) Lymph # (Auto) [place] # (Auto) Baso # (Auto) Seg Neutrophils % Seg Neuts % (Manual) Lymphocytes % (Manual) Nucleated RBC % Seg Neutrophils # Seg Neutrophils # Man Lymphocytes # (Manual) D-Dimer ABG pH POC ABG pCO2 POC ABG pO2 ABG pO2 ABG HCO3 ABG O2 Saturation ABG Base Excess ABG Hemoglobin ABG Oxyhemoglobin ABG Sodium ABG Potassium ABG Chloride ABG Glucose Oxyhemoglobin Carboxyhemoglobin Sodium 134 L Potassium Chloride 89.6 L Carbon Dioxide 44 H* BUN Creatinine 0.2 L Glucose 280 H POC Glucose 260 H Hemoglobin A1c Lactic Acid Calcium 8.0 L Magnesium 1.60 L Ferritin Total Bilirubin AST ALT Alkaline Phosphatase Lactate Dehydrogenase Total Creatine Kinase 47 L C-Reactive Protein Total Protein 6.2 L Albumin 2.1 L Triglycerides Arterial Blood Glucose Arterial Blood Ionized Calcium Ur Specific [place] Urine WBC (Auto) Vancomycin Trough Coronavirus (PCR) 12/18/20 12/18/20 12/18/20 00:12 03:56 04:32 WBC RBC 2.88 L Hgb 8.6 L Hct 26.0 L MCHC RDW 15.6 H Plt Count Lymph % (Auto) [place] % (Auto) Lymph # (Auto) [place] # (Auto) Baso # (Auto) Seg Neutrophils % Seg Neuts % (Manual) Lymphocytes % (Manual) Nucleated RBC % Seg Neutrophils # Seg Neutrophils # Man Lymphocytes # (Manual) D-Dimer ABG pH POC ABG pCO2 78.0 H POC ABG pO2 52.3 L ABG pO2 ABG HCO3 ABG O2 Saturation ABG Base Excess ABG Hemoglobin 11.7 L ABG Oxyhemoglobin 84.9 L ABG Sodium 131.6 L ABG Potassium ABG Chloride 89.0 L ABG Glucose 191 H Oxyhemoglobin Carboxyhemoglobin Sodium Potassium Chloride Carbon Dioxide BUN Creatinine Glucose POC Glucose 197 H Hemoglobin A1c Lactic Acid Calcium Magnesium Ferritin Total Bilirubin AST ALT Alkaline Phosphatase Lactate Dehydrogenase Total Creatine Kinase C-Reactive Protein Total Protein Albumin Triglycerides Arterial Blood Glucose 191 H Arterial Blood Ionized Calcium 4.4 L Ur Specific [place] Urine WBC (Auto) Vancomycin Trough Coronavirus (PCR) 12/18/20 12/18/20 12/18/20 04:32 05:19 08:27 WBC RBC Hgb Hct MCHC RDW Plt Count Lymph % (Auto) [place] % (Auto) Lymph # (Auto) [place] # (Auto) Baso # (Auto) Seg Neutrophils % Seg Neuts % (Manual) Lymphocytes % (Manual) Nucleated RBC % Seg Neutrophils # Seg Neutrophils # Man Lymphocytes # (Manual) D-Dimer ABG pH POC ABG pCO2 POC ABG pO2 ABG pO2 ABG HCO3 ABG O2 Saturation ABG Base Excess ABG Hemoglobin ABG Oxyhemoglobin ABG Sodium ABG Potassium ABG Chloride ABG Glucose Oxyhemoglobin Carboxyhemoglobin Sodium 134 L 131 L Potassium Chloride 89.5 L 89.0 L Carbon Dioxide 43 H* 41 H* BUN Creatinine < 0.2 L < 0.2 L Glucose 182 H 176 H POC Glucose 165 H Hemoglobin A1c Lactic Acid Calcium 8.1 L 7.5 L Magnesium Ferritin Total Bilirubin AST ALT Alkaline Phosphatase Lactate Dehydrogenase Total Creatine Kinase C-Reactive Protein Total Protein Albumin Triglycerides Arterial Blood Glucose Arterial Blood Ionized Calcium Ur Specific [place] Urine WBC (Auto) Vancomycin Trough Coronavirus (PCR) 12/18/20 12/18/20 12/18/20 11:37 17:26 23:19 WBC RBC Hgb Hct MCHC RDW Plt Count Lymph % (Auto) [place] % (Auto) Lymph # (Auto) [place] # (Auto) Baso # (Auto) Seg Neutrophils % Seg Neuts % (Manual) Lymphocytes % (Manual) Nucleated RBC % Seg Neutrophils # Seg Neutrophils # Man Lymphocytes # (Manual) D-Dimer ABG pH POC ABG pCO2 POC ABG pO2 ABG pO2 ABG HCO3 ABG O2 Saturation ABG Base Excess ABG Hemoglobin ABG Oxyhemoglobin ABG Sodium ABG Potassium ABG Chloride ABG Glucose Oxyhemoglobin Carboxyhemoglobin Sodium Potassium Chloride Carbon Dioxide BUN Creatinine Glucose POC Glucose 174 H 243 H 212 H Hemoglobin A1c Lactic Acid Calcium Magnesium Ferritin Total Bilirubin AST ALT Alkaline Phosphatase Lactate Dehydrogenase Total Creatine Kinase C-Reactive Protein Total Protein Albumin Triglycerides Arterial Blood Glucose Arterial Blood Ionized Calcium Ur Specific [place] Urine WBC (Auto) Vancomycin Trough Coronavirus (PCR) 12/19/20 12/19/20 12/19/20 03:41 05:26 11:56 WBC RBC Hgb Hct MCHC RDW Plt Count Lymph % (Auto) [place] % (Auto) Lymph # (Auto) [place] # (Auto) Baso # (Auto) Seg Neutrophils % Seg Neuts % (Manual) Lymphocytes % (Manual) Nucleated RBC % Seg Neutrophils # Seg Neutrophils # Man Lymphocytes # (Manual) D-Dimer ABG pH POC ABG pCO2 75.4 H POC ABG pO2 50.7 L ABG pO2 ABG HCO3 ABG O2 Saturation ABG Base Excess ABG Hemoglobin 10.4 L ABG Oxyhemoglobin 84.2 L ABG Sodium 131.1 L ABG Potassium ABG Chloride 89.0 L ABG Glucose 194 H Oxyhemoglobin Carboxyhemoglobin 1.6 H Sodium Potassium Chloride Carbon Dioxide BUN Creatinine Glucose POC Glucose 166 H 173 H Hemoglobin A1c Lactic Acid Calcium Magnesium Ferritin Total Bilirubin AST ALT Alkaline Phosphatase Lactate Dehydrogenase Total Creatine Kinase C-Reactive Protein Total Protein Albumin Triglycerides Arterial Blood Glucose 194 H Arterial Blood Ionized Calcium 4.3 L Ur Specific [place] Urine WBC (Auto) Vancomycin Trough Coronavirus (PCR) 12/19/20 12/19/20 12/19/20 18:17 23:39 Unknown WBC RBC Hgb Hct MCHC RDW Plt Count Lymph % (Auto) [place] % (Auto) Lymph # (Auto) [place] # (Auto) Baso # (Auto) Seg Neutrophils % Seg Neuts % (Manual) Lymphocytes % (Manual) Nucleated RBC % Seg Neutrophils # Seg Neutrophils # Man Lymphocytes # (Manual) D-Dimer ABG pH POC ABG pCO2 POC ABG pO2 ABG pO2 ABG HCO3 ABG O2 Saturation ABG Base Excess ABG Hemoglobin ABG Oxyhemoglobin ABG Sodium ABG Potassium ABG Chloride ABG Glucose Oxyhemoglobin Carboxyhemoglobin Sodium 133 L Potassium Chloride 89.9 L Carbon Dioxide 39 H BUN Creatinine 0.2 L Glucose 197 H POC Glucose 212 H 133 H Hemoglobin A1c Lactic Acid Calcium 7.6 L Magnesium Ferritin Total Bilirubin AST ALT Alkaline Phosphatase Lactate Dehydrogenase Total Creatine Kinase C-Reactive Protein Total Protein Albumin Triglycerides Arterial Blood Glucose Arterial Blood Ionized Calcium Ur Specific [place] Urine WBC (Auto) Vancomycin Trough Coronavirus (PCR) 12/20/20 12/20/20 12/20/20 03:26 04:00 04:00 WBC RBC 3.21 L Hgb 9.6 L Hct 29.2 L MCHC RDW 15.8 H Plt Count Lymph % (Auto) [place] % (Auto) Lymph # (Auto) [place] # (Auto) Baso # (Auto) Seg Neutrophils % Seg Neuts % (Manual) Lymphocytes % (Manual) Nucleated RBC % Seg Neutrophils # Seg Neutrophils # Man Lymphocytes # (Manual) D-Dimer ABG pH POC ABG pCO2 74.2 H POC ABG pO2 51.3 L ABG pO2 ABG HCO3 ABG O2 Saturation ABG Base Excess ABG Hemoglobin 10.0 L ABG Oxyhemoglobin ABG Sodium 128.9 L ABG Potassium ABG Chloride 87.0 L ABG Glucose 173 H Oxyhemoglobin Carboxyhemoglobin Sodium 132 L Potassium Chloride 86.0 L Carbon Dioxide 43 H* BUN Creatinine 0.2 L Glucose 193 H POC Glucose Hemoglobin A1c Lactic Acid Calcium 7.6 L Magnesium Ferritin Total Bilirubin AST ALT Alkaline Phosphatase Lactate Dehydrogenase Total Creatine Kinase C-Reactive Protein Total Protein Albumin Triglycerides Arterial Blood Glucose 173 H Arterial Blood Ionized Calcium 4.1 L Ur Specific [place] Urine WBC (Auto) Vancomycin Trough Coronavirus (PCR) 12/20/20 12/20/20 12/20/20 05:05 11:47 18:18 WBC RBC Hgb Hct MCHC RDW Plt Count Lymph % (Auto) [place] % (Auto) Lymph # (Auto) [place] # (Auto) Baso # (Auto) Seg Neutrophils % Seg Neuts % (Manual) Lymphocytes % (Manual) Nucleated RBC % Seg Neutrophils # Seg Neutrophils # Man Lymphocytes # (Manual) D-Dimer ABG pH POC ABG pCO2 POC ABG pO2 ABG pO2 ABG HCO3 ABG O2 Saturation ABG Base Excess ABG Hemoglobin ABG Oxyhemoglobin ABG Sodium ABG Potassium ABG Chloride ABG Glucose Oxyhemoglobin Carboxyhemoglobin Sodium Potassium Chloride Carbon Dioxide BUN Creatinine Glucose POC Glucose 171 H 238 H 205 H Hemoglobin A1c Lactic Acid Calcium Magnesium Ferritin Total Bilirubin AST ALT Alkaline Phosphatase Lactate Dehydrogenase Total Creatine Kinase C-Reactive Protein Total Protein Albumin Triglycerides Arterial Blood Glucose Arterial Blood Ionized Calcium Ur Specific [place] Urine WBC (Auto) Vancomycin Trough Coronavirus (PCR) 12/20/20 12/21/20 12/21/20 23:41 03:30 05:37 WBC RBC Hgb Hct MCHC RDW Plt Count Lymph % (Auto) [place] % (Auto) Lymph # (Auto) [place] # (Auto) Baso # (Auto) Seg Neutrophils % Seg Neuts % (Manual) Lymphocytes % (Manual) Nucleated RBC % Seg Neutrophils # Seg Neutrophils # Man Lymphocytes # (Manual) D-Dimer ABG pH POC ABG pCO2 73.4 H POC ABG pO2 63.0 L ABG pO2 ABG HCO3 ABG O2 Saturation ABG Base Excess ABG Hemoglobin 10.1 L ABG Oxyhemoglobin ABG Sodium 130.5 L ABG Potassium ABG Chloride 89.0 L ABG Glucose 171 H Oxyhemoglobin Carboxyhemoglobin Sodium Potassium Chloride Carbon Dioxide BUN Creatinine Glucose POC Glucose 167 H 152 H Hemoglobin A1c Lactic Acid Calcium Magnesium Ferritin Total Bilirubin AST ALT Alkaline Phosphatase Lactate Dehydrogenase Total Creatine Kinase C-Reactive Protein Total Protein Albumin Triglycerides Arterial Blood Glucose 171 H Arterial Blood Ionized Calcium 4.2 L Ur Specific [place] Urine WBC (Auto) Vancomycin Trough Coronavirus (PCR) 12/21/20 12/21/20 12/21/20 09:57 12:54 18:00 WBC RBC Hgb Hct MCHC RDW Plt Count Lymph % (Auto) [place] % (Auto) Lymph # (Auto) [place] # (Auto) Baso # (Auto) Seg Neutrophils % Seg Neuts % (Manual) Lymphocytes % (Manual) Nucleated RBC % Seg Neutrophils # Seg Neutrophils # Man Lymphocytes # (Manual) D-Dimer ABG pH POC ABG pCO2 POC ABG pO2 ABG pO2 ABG HCO3 ABG O2 Saturation ABG Base Excess ABG Hemoglobin ABG Oxyhemoglobin ABG Sodium ABG Potassium ABG Chloride ABG Glucose Oxyhemoglobin Carboxyhemoglobin Sodium 132 L Potassium Chloride 87.7 L Carbon Dioxide 42 H* BUN Creatinine 0.2 L Glucose 207 H POC Glucose 199 H 217 H Hemoglobin A1c Lactic Acid Calcium 7.7 L Magnesium Ferritin Total Bilirubin AST ALT Alkaline Phosphatase Lactate Dehydrogenase Total Creatine Kinase C-Reactive Protein Total Protein Albumin Triglycerides Arterial Blood Glucose Arterial Blood Ionized Calcium Ur Specific [place] Urine WBC (Auto) Vancomycin Trough Coronavirus (PCR) 12/21/20 12/22/20 12/22/20 Unknown 00:02 04:08 WBC RBC Hgb Hct MCHC RDW Plt Count Lymph % (Auto) [place] % (Auto) Lymph # (Auto) [place] # (Auto) Baso # (Auto) Seg Neutrophils % Seg Neuts % (Manual) Lymphocytes % (Manual) Nucleated RBC % Seg Neutrophils # Seg Neutrophils # Man Lymphocytes # (Manual) D-Dimer ABG pH POC ABG pCO2 67.6 H POC ABG pO2 57.3 L ABG pO2 ABG HCO3 ABG O2 Saturation ABG Base Excess ABG Hemoglobin ABG Oxyhemoglobin ABG Sodium 130.9 L ABG Potassium ABG Chloride 92.0 L ABG Glucose 163 H Oxyhemoglobin Carboxyhemoglobin Sodium Potassium Chloride Carbon Dioxide BUN Creatinine Glucose POC Glucose 172 H Hemoglobin A1c Lactic Acid Calcium Magnesium Ferritin Total Bilirubin AST ALT Alkaline Phosphatase Lactate Dehydrogenase Total Creatine Kinase C-Reactive Protein Total Protein Albumin Triglycerides Arterial Blood Glucose 163 H Arterial Blood Ionized Calcium 4.2 L Ur Specific [place] Urine WBC (Auto) 172.0 H Vancomycin Trough Coronavirus (PCR) 12/22/20 12/22/20 12/22/20 05:19 11:33 17:20 WBC RBC Hgb Hct MCHC RDW Plt Count Lymph % (Auto) [place] % (Auto) Lymph # (Auto) [place] # (Auto) Baso # (Auto) Seg Neutrophils % Seg Neuts % (Manual) Lymphocytes % (Manual) Nucleated RBC % Seg Neutrophils # Seg Neutrophils # Man Lymphocytes # (Manual) D-Dimer ABG pH POC ABG pCO2 POC ABG pO2 ABG pO2 ABG HCO3 ABG O2 Saturation ABG Base Excess ABG Hemoglobin ABG Oxyhemoglobin ABG Sodium ABG Potassium ABG Chloride ABG Glucose Oxyhemoglobin Carboxyhemoglobin Sodium Potassium Chloride Carbon Dioxide BUN Creatinine Glucose POC Glucose 151 H 181 H 166 H Hemoglobin A1c Lactic Acid Calcium Magnesium Ferritin Total Bilirubin AST ALT Alkaline Phosphatase Lactate Dehydrogenase Total Creatine Kinase C-Reactive Protein Total Protein Albumin Triglycerides Arterial Blood Glucose Arterial Blood Ionized Calcium Ur Specific [place] Urine WBC (Auto) Vancomycin Trough Coronavirus (PCR) 12/22/20 12/23/20 12/23/20 23:25 05:19 05:32 WBC RBC Hgb Hct MCHC RDW Plt Count Lymph % (Auto) [place] % (Auto) Lymph # (Auto) [place] # (Auto) Baso # (Auto) Seg Neutrophils % Seg Neuts % (Manual) Lymphocytes % (Manual) Nucleated RBC % Seg Neutrophils # Seg Neutrophils # Man Lymphocytes # (Manual) D-Dimer ABG pH POC ABG pCO2 67.7 H POC ABG pO2 53.7 L ABG pO2 ABG HCO3 ABG O2 Saturation ABG Base Excess ABG Hemoglobin 9.6 L ABG Oxyhemoglobin ABG Sodium 130.2 L ABG Potassium ABG Chloride 88.0 L ABG Glucose 195 H Oxyhemoglobin Carboxyhemoglobin Sodium Potassium Chloride Carbon Dioxide BUN Creatinine Glucose POC Glucose 121 H 167 H Hemoglobin A1c Lactic Acid Calcium Magnesium Ferritin Total Bilirubin AST ALT Alkaline Phosphatase Lactate Dehydrogenase Total Creatine Kinase C-Reactive Protein Total Protein Albumin Triglycerides Arterial Blood Glucose 195 H Arterial Blood Ionized Calcium 4.1 L Ur Specific [place] Urine WBC (Auto) Vancomycin Trough Coronavirus (PCR) 12/23/20 12/23/20 12/23/20 06:07 11:21 18:10 WBC RBC Hgb Hct MCHC RDW Plt Count Lymph % (Auto) [place] % (Auto) Lymph # (Auto) [place] # (Auto) Baso # (Auto) Seg Neutrophils % Seg Neuts % (Manual) Lymphocytes % (Manual) Nucleated RBC % Seg Neutrophils # Seg Neutrophils # Man Lymphocytes # (Manual) D-Dimer ABG pH POC ABG pCO2 POC ABG pO2 ABG pO2 ABG HCO3 ABG O2 Saturation ABG Base Excess ABG Hemoglobin ABG Oxyhemoglobin ABG Sodium ABG Potassium ABG Chloride ABG Glucose Oxyhemoglobin Carboxyhemoglobin Sodium 135 L Potassium Chloride 89.3 L Carbon Dioxide 43 H* BUN Creatinine 0.2 L Glucose 193 H POC Glucose 155 H 178 H Hemoglobin A1c Lactic Acid Calcium 7.4 L Magnesium Ferritin Total Bilirubin AST ALT Alkaline Phosphatase Lactate Dehydrogenase Total Creatine Kinase C-Reactive Protein Total Protein Albumin Triglycerides Arterial Blood Glucose Arterial Blood Ionized Calcium Ur Specific [place] Urine WBC (Auto) Vancomycin Trough Coronavirus (PCR) 12/23/20 12/24/20 12/24/20 23:21 04:49 05:00 WBC RBC Hgb Hct MCHC RDW Plt Count Lymph % (Auto) [place] % (Auto) Lymph # (Auto) [place] # (Auto) Baso # (Auto) Seg Neutrophils % Seg Neuts % (Manual) Lymphocytes % (Manual) Nucleated RBC % Seg Neutrophils # Seg Neutrophils # Man Lymphocytes # (Manual) D-Dimer ABG pH POC ABG pCO2 75.5 H POC ABG pO2 50.5 L ABG pO2 ABG HCO3 ABG O2 Saturation ABG Base Excess ABG Hemoglobin 8.8 L ABG Oxyhemoglobin 86.3 L ABG Sodium 131.6 L ABG Potassium ABG Chloride 88.0 L ABG Glucose 186 H Oxyhemoglobin Carboxyhemoglobin 2.1 H Sodium Potassium Chloride Carbon Dioxide BUN Creatinine Glucose POC Glucose 126 H Hemoglobin A1c Lactic Acid Calcium Magnesium Ferritin Total Bilirubin AST ALT Alkaline Phosphatase Lactate Dehydrogenase Total Creatine Kinase C-Reactive Protein Total Protein Albumin Triglycerides 486 H Arterial Blood Glucose 186 H Arterial Blood Ionized Calcium 4.0 L Ur Specific [place] Urine WBC (Auto) Vancomycin Trough Coronavirus (PCR) 12/24/20 12/24/20 12/24/20 05:19 11:57 16:44 WBC RBC Hgb Hct MCHC RDW Plt Count Lymph % (Auto) [place] % (Auto) Lymph # (Auto) [place] # (Auto) Baso # (Auto) Seg Neutrophils % Seg Neuts % (Manual) Lymphocytes % (Manual) Nucleated RBC % Seg Neutrophils # Seg Neutrophils # Man Lymphocytes # (Manual) D-Dimer ABG pH POC ABG pCO2 POC ABG pO2 ABG pO2 ABG HCO3 ABG O2 Saturation ABG Base Excess ABG Hemoglobin ABG Oxyhemoglobin ABG Sodium ABG Potassium ABG Chloride ABG Glucose Oxyhemoglobin Carboxyhemoglobin Sodium Potassium Chloride Carbon Dioxide BUN Creatinine Glucose POC Glucose 162 H 163 H 191 H Hemoglobin A1c Lactic Acid Calcium Magnesium Ferritin Total Bilirubin AST ALT Alkaline Phosphatase Lactate Dehydrogenase Total Creatine Kinase C-Reactive Protein Total Protein Albumin Triglycerides Arterial Blood Glucose Arterial Blood Ionized Calcium Ur Specific [place] Urine WBC (Auto) Vancomycin Trough Coronavirus (PCR) 12/24/20 12/24/20 12/24/20 17:28 18:57 20:48 WBC 19.1 H RBC 2.91 L Hgb 8.3 L Hct 26.0 L MCHC RDW 16.0 H Plt Count Lymph % (Auto) [place] % (Auto) Lymph # (Auto) [place] # (Auto) Baso # (Auto) Seg Neutrophils % Seg Neuts % (Manual) 92.0 H Lymphocytes % (Manual) 5.0 L Nucleated RBC % Seg Neutrophils # Seg Neutrophils # Man 17.6 H Lymphocytes # (Manual) 1.0 L D-Dimer ABG pH 7.250 L POC ABG pCO2 102.6 H 82.1 H POC ABG pO2 42.4 L 38.6 L ABG pO2 ABG HCO3 ABG O2 Saturation ABG Base Excess ABG Hemoglobin 9.0 L 9.3 L ABG Oxyhemoglobin 69.9 L 70.8 L ABG Sodium 131.1 L 130.7 L ABG Potassium ABG Chloride 89.0 L 89.0 L ABG Glucose 211 H 226 H Oxyhemoglobin Carboxyhemoglobin 1.7 H 1.8 H Sodium Potassium Chloride Carbon Dioxide BUN Creatinine Glucose POC Glucose Hemoglobin A1c Lactic Acid Calcium Magnesium Ferritin Total Bilirubin AST ALT Alkaline Phosphatase Lactate Dehydrogenase Total Creatine Kinase C-Reactive Protein Total Protein Albumin Triglycerides Arterial Blood Glucose 211 H 226 H Arterial Blood Ionized Calcium 4.0 L 4.1 L Ur Specific [place] Urine WBC (Auto) Vancomycin Trough Coronavirus (PCR) 12/24/20 12/25/20 12/25/20 23:31 04:04 06:31 WBC RBC Hgb Hct MCHC RDW Plt Count Lymph % (Auto) [place] % (Auto) Lymph # (Auto) [place] # (Auto) Baso # (Auto) Seg Neutrophils % Seg Neuts % (Manual) Lymphocytes % (Manual) Nucleated RBC % Seg Neutrophils # Seg Neutrophils # Man Lymphocytes # (Manual) D-Dimer ABG pH POC ABG pCO2 75.6 H POC ABG pO2 43.3 L ABG pO2 ABG HCO3 ABG O2 Saturation ABG Base Excess ABG Hemoglobin 10.6 L ABG Oxyhemoglobin 77.6 L ABG Sodium 131.4 L ABG Potassium ABG Chloride 90.0 L ABG Glucose 185 H Oxyhemoglobin Carboxyhemoglobin 2.4 H Sodium Potassium Chloride Carbon Dioxide BUN Creatinine Glucose POC Glucose 181 H 153 H Hemoglobin A1c Lactic Acid Calcium Magnesium Ferritin Total Bilirubin AST ALT Alkaline Phosphatase Lactate Dehydrogenase Total Creatine Kinase C-Reactive Protein Total Protein Albumin Triglycerides Arterial Blood Glucose 185 H Arterial Blood Ionized Calcium 4.1 L Ur Specific [place] Urine WBC (Auto) Vancomycin Trough Coronavirus (PCR) 12/25/20 12/25/20 12/25/20 11:17 11:17 11:17 WBC 19.6 H RBC 2.82 L Hgb 8.1 L Hct 25.2 L MCHC RDW 16.2 H Plt Count Lymph % (Auto) [place] % (Auto) Lymph # (Auto) [place] # (Auto) Baso # (Auto) Seg Neutrophils % Seg Neuts % (Manual) Lymphocytes % (Manual) Nucleated RBC % Seg Neutrophils # Seg Neutrophils # Man Lymphocytes # (Manual) D-Dimer ABG pH POC ABG pCO2 POC ABG pO2 ABG pO2 ABG HCO3 ABG O2 Saturation ABG Base Excess ABG Hemoglobin ABG Oxyhemoglobin ABG Sodium ABG Potassium ABG Chloride ABG Glucose Oxyhemoglobin Carboxyhemoglobin Sodium 136 L Potassium Chloride 92.3 L Carbon Dioxide 44 H* BUN Creatinine 0.3 L Glucose 240 H POC Glucose Hemoglobin A1c Lactic Acid Calcium 7.3 L Magnesium Ferritin Total Bilirubin AST ALT Alkaline Phosphatase Lactate Dehydrogenase Total Creatine Kinase C-Reactive Protein Total Protein Albumin Triglycerides 328 H Arterial Blood Glucose Arterial Blood Ionized Calcium Ur Specific [place] Urine WBC (Auto) Vancomycin Trough Coronavirus (PCR) 12/25/20 12/25/20 12/25/20 12:07 17:52 21:49 WBC RBC Hgb Hct MCHC RDW Plt Count Lymph % (Auto) [place] % (Auto) Lymph # (Auto) [place] # (Auto) Baso # (Auto) Seg Neutrophils % Seg Neuts % (Manual) Lymphocytes % (Manual) Nucleated RBC % Seg Neutrophils # Seg Neutrophils # Man Lymphocytes # (Manual) D-Dimer ABG pH POC ABG pCO2 POC ABG pO2 ABG pO2 ABG HCO3 ABG O2 Saturation ABG Base Excess ABG Hemoglobin ABG Oxyhemoglobin ABG Sodium ABG Potassium ABG Chloride ABG Glucose Oxyhemoglobin Carboxyhemoglobin Sodium Potassium Chloride Carbon Dioxide BUN Creatinine Glucose POC Glucose 210 H 188 H 152 H Hemoglobin A1c Lactic Acid Calcium Magnesium Ferritin Total Bilirubin AST ALT Alkaline Phosphatase Lactate Dehydrogenase Total Creatine Kinase C-Reactive Protein Total Protein Albumin Triglycerides Arterial Blood Glucose Arterial Blood Ionized Calcium Ur Specific [place] Urine WBC (Auto) Vancomycin Trough Coronavirus (PCR) 12/25/20 12/26/20 12/26/20 23:47 04:00 05:20 WBC RBC Hgb Hct MCHC RDW Plt Count Lymph % (Auto) [place] % (Auto) Lymph # (Auto) [place] # (Auto) Baso # (Auto) Seg Neutrophils % Seg Neuts % (Manual) Lymphocytes % (Manual) Nucleated RBC % Seg Neutrophils # Seg Neutrophils # Man Lymphocytes # (Manual) D-Dimer ABG pH POC ABG pCO2 73.4 H POC ABG pO2 58.8 L ABG pO2 ABG HCO3 ABG O2 Saturation ABG Base Excess ABG Hemoglobin 7.4 L ABG Oxyhemoglobin ABG Sodium 135.2 L ABG Potassium ABG Chloride 96.0 L ABG Glucose 164 H Oxyhemoglobin Carboxyhemoglobin Sodium Potassium Chloride Carbon Dioxide BUN Creatinine Glucose POC Glucose 138 H 147 H Hemoglobin A1c Lactic Acid Calcium Magnesium Ferritin Total Bilirubin AST ALT Alkaline Phosphatase Lactate Dehydrogenase Total Creatine Kinase C-Reactive Protein Total Protein Albumin Triglycerides Arterial Blood Glucose 164 H Arterial Blood Ionized Calcium 4.1 L Ur Specific [place] Urine WBC (Auto) Vancomycin Trough Coronavirus (PCR) 12/26/20 12/26/2021 05:26 05:26 05:26 WBC 16.2 H RBC 2.75 L Hgb 7.8 L Hct 24.1 L MCHC RDW 16.3 H Plt Count 451 H Lymph % (Auto) [place] % (Auto) Lymph # (Auto) [place] # (Auto) Baso # (Auto) Seg Neutrophils % Seg Neuts % (Manual) 87.0 H Lymphocytes % (Manual) Nucleated RBC % 5.0 H Seg Neutrophils # Seg Neutrophils # Man 14.1 H Lymphocytes # (Manual) 0.0 L D-Dimer ABG pH POC ABG pCO2 POC ABG pO2 ABG pO2 ABG HCO3 ABG O2 Saturation ABG Base Excess ABG Hemoglobin ABG Oxyhemoglobin ABG Sodium ABG Potassium ABG Chloride ABG Glucose Oxyhemoglobin Carboxyhemoglobin Sodium Potassium Chloride 95.2 L Carbon Dioxide 44 H* BUN Creatinine 0.2 L Glucose 155 H POC Glucose Hemoglobin A1c Lactic Acid Calcium 7.4 L Magnesium Ferritin Total Bilirubin AST ALT Alkaline Phosphatase Lactate Dehydrogenase Total Creatine Kinase C-Reactive Protein Total Protein 6.0 L Albumin 1.6 L Triglycerides 307 H Arterial Blood Glucose Arterial Blood Ionized Calcium Ur Specific [place] Urine WBC (Auto) Vancomycin Trough Coronavirus (PCR) 12/26/20 12/26/20 12/26/20 11:21 17:26 23:22 WBC RBC Hgb Hct MCHC RDW Plt Count Lymph % (Auto) [place] % (Auto) Lymph # (Auto) [place] # (Auto) Baso # (Auto) Seg Neutrophils % Seg Neuts % (Manual) Lymphocytes % (Manual) Nucleated RBC % Seg Neutrophils # Seg Neutrophils # Man Lymphocytes # (Manual) D-Dimer ABG pH POC ABG pCO2 POC ABG pO2 ABG pO2 ABG HCO3 ABG O2 Saturation ABG Base Excess ABG Hemoglobin ABG Oxyhemoglobin ABG Sodium ABG Potassium ABG Chloride ABG Glucose Oxyhemoglobin Carboxyhemoglobin Sodium Potassium Chloride Carbon Dioxide BUN Creatinine Glucose POC Glucose 127 H 134 H 125 H Hemoglobin A1c Lactic Acid Calcium Magnesium Ferritin Total Bilirubin AST ALT Alkaline Phosphatase Lactate Dehydrogenase Total Creatine Kinase C-Reactive Protein Total Protein Albumin Triglycerides Arterial Blood Glucose Arterial Blood Ionized Calcium Ur Specific [place] Urine WBC (Auto) Vancomycin Trough Coronavirus (PCR) 12/27/20 12/27/20 12/27/20 03:19 05:17 10:52 WBC RBC Hgb Hct MCHC RDW Plt Count Lymph % (Auto) [place] % (Auto) Lymph # (Auto) [place] # (Auto) Baso # (Auto) Seg Neutrophils % Seg Neuts % (Manual) Lymphocytes % (Manual) Nucleated RBC % Seg Neutrophils # Seg Neutrophils # Man Lymphocytes # (Manual) D-Dimer ABG pH POC ABG pCO2 75.0 H POC ABG pO2 74.3 L ABG pO2 ABG HCO3 ABG O2 Saturation ABG Base Excess ABG Hemoglobin 7.3 L ABG Oxyhemoglobin 92.8 L ABG Sodium 135.6 L ABG Potassium ABG Chloride ABG Glucose 151 H Oxyhemoglobin Carboxyhemoglobin 2.0 H Sodium 136 L Potassium Chloride 96.8 L Carbon Dioxide 38 H BUN Creatinine 0.2 L Glucose 139 H POC Glucose 121 H Hemoglobin A1c Lactic Acid Calcium 7.0 L Magnesium Ferritin Total Bilirubin AST 52 H ALT Alkaline Phosphatase Lactate Dehydrogenase Total Creatine Kinase C-Reactive Protein Total Protein 4.7 L D Albumin 1.1 L Triglycerides Arterial Blood Glucose 151 H Arterial Blood Ionized Calcium 4.2 L Ur Specific [place] Urine WBC (Auto) Vancomycin Trough Coronavirus (PCR) 12/27/20 12/27/20 12/27/20 12:02 14:09 17:36 WBC 14.4 H RBC 2.82 L Hgb 8.0 L Hct 25.6 L MCHC 31 L RDW 16.4 H Plt Count 442 H Lymph % (Auto) [place] % (Auto) Lymph # (Auto) [place] # (Auto) Baso # (Auto) Seg Neutrophils % Seg Neuts % (Manual) 36.0 L Lymphocytes % (Manual) 7.0 L Nucleated RBC % 18.0 H Seg Neutrophils # Seg Neutrophils # Man Lymphocytes # (Manual) 1.0 L D-Dimer ABG pH POC ABG pCO2 POC ABG pO2 ABG pO2 ABG HCO3 ABG O2 Saturation ABG Base Excess ABG Hemoglobin ABG Oxyhemoglobin ABG Sodium ABG Potassium ABG Chloride ABG Glucose Oxyhemoglobin Carboxyhemoglobin Sodium Potassium Chloride Carbon Dioxide BUN Creatinine Glucose POC Glucose 126 H 107 H Hemoglobin A1c Lactic Acid Calcium Magnesium Ferritin Total Bilirubin AST ALT Alkaline Phosphatase Lactate Dehydrogenase Total Creatine Kinase C-Reactive Protein Total Protein Albumin Triglycerides Arterial Blood Glucose Arterial Blood Ionized Calcium Ur Specific [place] Urine WBC (Auto) Vancomycin Trough Coronavirus (PCR) 12/27/20 12/28/20 12/28/20 22:58 03:48 05:45 WBC 13.4 H RBC 2.78 L Hgb 7.9 L Hct 25.1 L MCHC RDW 16.4 H Plt Count 484 H Lymph % (Auto) [place] % (Auto) Lymph # (Auto) [place] # (Auto) Baso # (Auto) Seg Neutrophils % Seg Neuts % (Manual) 86.0 H Lymphocytes % (Manual) 2.0 L Nucleated RBC % 2.0 H Seg Neutrophils # Seg Neutrophils # Man 11.5 H Lymphocytes # (Manual) 0.3 L D-Dimer ABG pH POC ABG pCO2 73.1 H POC ABG pO2 66.2 L ABG pO2 ABG HCO3 ABG O2 Saturation ABG Base Excess ABG Hemoglobin 8.9 L ABG Oxyhemoglobin 90.3 L ABG Sodium ABG Potassium 3.3 L ABG Chloride ABG Glucose 107 H Oxyhemoglobin Carboxyhemoglobin 1.6 H Sodium Potassium Chloride Carbon Dioxide BUN Creatinine Glucose POC Glucose 130 H Hemoglobin A1c Lactic Acid Calcium Magnesium Ferritin Total Bilirubin AST ALT Alkaline Phosphatase Lactate Dehydrogenase Total Creatine Kinase C-Reactive Protein Total Protein Albumin Triglycerides Arterial Blood Glucose 107 H Arterial Blood Ionized Calcium 4.4 L Ur Specific [place] Urine WBC (Auto) Vancomycin Trough Coronavirus (PCR) 12/28/20 12/29/20 12/29/20 05:45 04:00 04:00 WBC 18.0 H RBC 2.80 L Hgb 8.0 L Hct 25.3 L MCHC RDW 17.1 H Plt Count 486 H Lymph % (Auto) [place] % (Auto) Lymph # (Auto) [place] # (Auto) Baso # (Auto) Seg Neutrophils % Seg Neuts % (Manual) 83.0 H Lymphocytes % (Manual) 10.0 L Nucleated RBC % 2.0 H Seg Neutrophils # Seg Neutrophils # Man 14.9 H Lymphocytes # (Manual) D-Dimer ABG pH POC ABG pCO2 POC ABG pO2 ABG pO2 ABG HCO3 ABG O2 Saturation ABG Base Excess ABG Hemoglobin ABG Oxyhemoglobin ABG Sodium ABG Potassium ABG Chloride ABG Glucose Oxyhemoglobin Carboxyhemoglobin Sodium Potassium 3.2 L D Chloride Carbon Dioxide 41 H* 38 H BUN Creatinine 0.3 L 0.3 L Glucose 135 H POC Glucose Hemoglobin A1c Lactic Acid Calcium 7.3 L 7.5 L Magnesium Ferritin Total Bilirubin AST ALT Alkaline Phosphatase Lactate Dehydrogenase Total Creatine Kinase C-Reactive Protein Total Protein 6.0 L D 6.1 L Albumin 1.4 L 1.5 L Triglycerides 284 H Arterial Blood Glucose Arterial Blood Ionized Calcium Ur Specific [place] Urine WBC (Auto) Vancomycin Trough Coronavirus (PCR) 12/29/20 04:00 WBC RBC Hgb Hct MCHC RDW Plt Count Lymph % (Auto) [place] % (Auto) Lymph # (Auto) [place] # (Auto) Baso # (Auto) Seg Neutrophils % Seg Neuts % (Manual) Lymphocytes % (Manual) Nucleated RBC % Seg Neutrophils # Seg Neutrophils # Man Lymphocytes # (Manual) D-Dimer ABG pH 7.319 L POC ABG pCO2 71.0 H POC ABG pO2 65.2 L ABG pO2 ABG HCO3 ABG O2 Saturation ABG Base Excess ABG Hemoglobin 8.7 L ABG Oxyhemoglobin ABG Sodium ABG Potassium ABG Chloride ABG Glucose 140 H Oxyhemoglobin Carboxyhemoglobin Sodium Potassium Chloride Carbon Dioxide BUN Creatinine Glucose POC Glucose Hemoglobin A1c Lactic Acid Calcium Magnesium Ferritin Total Bilirubin AST ALT Alkaline Phosphatase Lactate Dehydrogenase Total Creatine Kinase C-Reactive Protein Total Protein Albumin Triglycerides Arterial Blood Glucose 140 H Arterial Blood Ionized Calcium 4.3 L Ur Specific [place] Urine WBC (Auto) Vancomycin Trough Coronavirus (PCR)
[2020-12-29] MEDS: MIDAZOLAM 100 MG in SODIUM CHLORIDE 0.9% 80 ML IV SCH (11:50)
--- NOTE | 2020-12-29 13:01 | Progress Note ---
Assessment and Plan Assessment and plan: -Antibiotic therapy -Remains on vasopressor support -RASS goal -4 per CCM -Chest tube management as per surgery/CCM -Maintained on mechanical ventilation -Continue to monitor glucose levels -Continue supportive care -ID and critical care following -Prognosis is very poor DVT/GI prophylaxis: SCDs to bilateral lower extremities while in bed, Lovenox subcu, PPI Disposition: ICU The high probability of a clinically significant, sudden or life threatening deterioration of the [multi] system(s) required my full and direct attention, intervention and personal management. The aggregate critical care time was [35] minutes. This time is in addition to time spent performing reported procedures but includes the following: [x] Data Review and interpretation [x] Patient assessment and monitoring of vital signs [x] Documentation [x] Medication orders and management History Interval history: 59-year-old female who is smoker who presented to [facility] with shortness of breath cough fever weakness for 1 to 2 days prior to arrival. Per EMS the patient was severely hypoxic with saturations in the low 80s. With all oxygen and nonrebreather came down to low 90s. ID, pulmonary, CCM were consulted. Septic Shock Coag Negative staph/Entrococcus bactermia MRSA/Klebsiella in sputum COVID-19 pneumonia Acute hypoxic hypercapnic respiratory failure Bilateral pneumothorax Pneumomediastinum with subcutaneous emphysema Elevated D-dimer Transaminitis secondary to Covid 19 Klebsiella pneumonia Type 2 diabetes mellitus Severe protien calorie malnutrition secondary to critical illness Metabolic alkalosis Hypercapnia 2/1: Patient continues on BiPAP throughout the night. Labs are remarkable for hypoxia with improving renal function but lactic acidosis without fever. CTA has been ordered to rule out pulmonary embolism. I agree with increasing enoxaparin to twice daily full dose for empiric treatment of pulmonary embolism. Will obtain ID consultation on further evaluation for possible underlying pneumonia versus COVID-19. We will also obtain echocardiogram for evaluation. Will discontinue fluids at this time. 2/2; Continue supportive care, Patient remains with very guarded prognosis, remains on BiPAP, continues on Remdesivir, and steroids. Will continue anticoagulation, unable to get CTA Chest due to patients unstable clinical status. Will adjust insulin for better blood glucose 2/3: Continues on BIPAP, no clear improvement at this time. Will continue steroids therapy Remdesivir and also Full anticoagulation at this time. Will up date family. Discussed with [facility]. 2/4: Taking a break from the BiPAP on high flow and nonrebreather 100% with saturation of 90% becomes hypoxic with any movement. [facility] input noted will get a dose of Lasix today. Will await a discussion with ID for possibly increasing steroid. I updated Patient's Cousin, Tayla Esquivel who is the emergency contact lens blocker. Blood sugar remains fluctuating secondary to steriods, Encouraged Prone positioning. Noted with mild hyponatremia we will continue to monitor and manage 11/20: Continue supportive care wean oxygen as tolerated prognosis remains guarded. Encouraged to progress as tolerated. Awaiting labs today. Discussed with nursing staff and patient at bedside. 11/21: Discontinued Dexamethasone as Solumedrol started secondary to increased oxygen demand. Will give additional insulin for better control. Continue oxygen support patient still on high flow. Prognosis still guarded 11/22: Patient was intubated and placed on mechanical ventilation. Continue current medication. Will check a.m. labs today. Noted still with hypotension. Doubt septic shock at this time as patient has no new fever. Will adjust insulin for better blood sugar control. 11/23: Patient admitted with COVID-19 despite all efforts patient remains severely hypoxic and now is intubated. [facility] input noted. Blood pressure marginal at this time. Very poor prognosis. Continue Solu-Medrol. 11/24. Patient remains very hypoxic. Blood pressure borderline. Plan for initiation of paralytic agents as per security architect. Patient may need to be transferred if no improvement. 11/26. Off paralytics. Remains intubated. On steroids. Prognosis is poor. 11/27. Chest xray shows pneumomediastinum and subcutaneous emphysema. Surgery consulted. Plan for chest tube placement. Sputum culture grew MRSA. Patient started on vancomycin per ID. 11/28. Right chest tube placed yesterday by surgery. Repeat chest x-ray showed left small pneumothorax. Plan for chest tube placement on the left today. Remains on paralytic agents. 11/29. Remains intubated on vent. Had left chest tube placed yesterday. Vitals reviewed. Critical care following 11/30/ Remains on mechanical ventilation. Worsening hypoxia. Bilateral chest tubes in place. Vitals reviewed. Labs reviewed 12/01: Chest tube and mechanical ventilation remains in place, poor prognosis, FIO2 remains at 90%, adjust insulin for better blood glucose control 12/02: Patient remains on full ventilatory support and steroids, still with w orsening leukocytosis ?inflammatory or infectious vs steroids. Continue vancomycin. 12/03; slowly weaning, 12/04: Still on the vent FiO2 down to 65% PEEP remains at 18. Still with poor prognosis. 12/05: Patient continues on full ventilatory support per security architect PEEP remains at 18. Still with hypercapnic respiratory failure. FiO2 down to 60% this morning. Chest tube to suction still weaning off steroids in the deliberation ongoing for possible a third chest tube as last documentation by surgery shows no plan for it at this time. Continue to manage insulin for better blood sugar control. 12/06:weaned down to 60%, continue supportive care, unable to wean, 12/07; patient remains intubated on ventilatory support, chest tubes in place trach and PEG when patient's Covid test is negative,Per surgery. 12/08; Patient remains intubated remains with hypercapnia and hypoxia. Chest tu be still remain in place. He is off antibiotics at this time. Continue steroids which is likely resultant to the leukocytosis. [facility] and surgeon following ID input is noted. Prognosis remains guarded to poor 12/10; patient remains intubated on vent, unable to wean awaiting trach and PEG w hen Covid test is negative, Continue current management 12/11; patient awaiting trach and PEG when Covid test is negative, vent dependent, poor prognosis 12/12; clinically no change, vent dependent, Patient is critically ill with very poor prognosis, awaiting trach and PEG when COVID-19 test turns negative. Plan discussed with nursing staff. Caregivers have discussed with patient's family periodically 12/13: Patient is critically ill with very poor prognosis, awaiting trach and PEG when COVID-19 test turns negative. Plan discussed with nursing staff. Caregivers have discussed with patient's family periodically 12/14: Increase UOP which we will monitor and replete as needed. Patient remain h ypoxemic on ABG despite 100 FiO2, remains on fentanyl, precedex, versed and levo gtt. 12/15: Patient remains sedated on fentanyl at 3 mcg, Versed at 30 mg, dexamethasone 0.3 and was on Levophed 6 mcg this morning. Patient's vent settings rate of 30, tidal volume 425, PEEP of 18, FiO2 of 85. RT attempted to wean as tolerated. No acute events reported overnight. Bilateral chest tubes to wall suction. 12/16: Overnight the patient was noted to be bradycardic, Precedex drip was increased to 0.6/fentanyl to 4 mcg/Versed 5 mg, bilateral chest tube to suction. Current vent settings for 425/30/18/0.75, RT to wean as tolerated 12/17: Patient's T-max overnight was 101.2, obtain CXR today, blood culture x2 per ID. Patient remains on fentanyl, Versed, Precedex and Levophed. Current vent settings AC 425/30/18/0.75, RT to wean as tolerated. Continue steroid taper. 12/18: Patient remains sedated on fentanyl, Versed, Precedex and has vasopressor support of Levophed, current vent settings 425/30/18/0.75 with bilateral chest tubes to wall suction. Patient's blood culture from 12/17 grew gram-positive cocci in pairs and chains however the patient is on vancomycin and cefepime. We will continue to follow for speciation and sensitivity. 12/19: Unfortunately remains on full ventilatory support prognosis remains very poor. No new fever however since 12/17. Continue to follow cultures not finalized yet. Antibiotics per ID critical care management input noted. Patient remains on high FiO2 and PEEP at this time. 12/20: Still with intermittent fever, likely secondary to covid 19, still with hyponatremia, continue with tube feed. cultures with coagulas negative staph, await further ID input. Continues on abx. 12/21: Patient remains on fentanyl, Precedex, Versed and Levophed and assist control for 25/30/18/.100 with bilateral chest tubes in place. Patient remains on antibiotic therapy. No acute events reported overnight. 12/22: Patient remains sedated on Precedex and fentanyl and on vasopressor support, blood cultures grew coag negative Staphylococcus and Enterococcus and antibiotic therapy was deescalated to ampicillin by infectious disease. This morning patient was on assist control for 25/30/18/0.100 and respiratory therapy to decrease FiO2 as tolerated. 12/23: Patient remains sedated on Versed, fentanyl, propofol, dexamethasone and vasopressor support with Levophed. Patient is on ampicillin with a T-max of 99 and current vent settings assist-control 425/30/18/0.90 which is being weaned as tolerated by RT. Patient bowel regimen escalated. 12/24: Patient was febrile overnight to 102, remains sedated on Versed, fentanyl, propofol and Precedex and on respiratory support with Levophed. This morning at the time my examination patient was on assist control 425/30/18/0.100. Patient's bowel regimen was escalated. This afternoon patient SPO2 dropped into the upper 60s and low 70s, patient was removed off the ventilator and bagged by RT with improvement in his SPO2 to mid 70s and his ventilator settings were adjusted with an increase in PEEP to 22 and reduction in tidal volume. Patient remained with SPO2 in the 70s to 80s then suddenly dropped his SPO2 again. A CX R was obtained and patient received 40 mg of IV Lasix. CXR showed pneumothorax and general surgery was consulted for chest tube placement. Patient's existing right chest tube was replaced after removal. During chest tube was placed on the right side and a repeat CXR is being performed. Dr. German and Dr. Henry were kept up to date throughout the process and Dr. Henry was at beside during this time. I attempted to call Kehinde but was unable to contact him but left a voicemail. Jd was called and informed of changes with translation provided by Tayla. I spoke to them on the phone for over 30 minutes and explained the situation. They did not wish to change his CODE STATUS. Per CCM the patient respikes his temperature over the next 24 hours we will reculture his urine and blood. Patient remains on antibiotic therapy for 14 days per infectious disease 01/04/2021. Repeat blood cultures are negative. 12/25: Patient developed subcu emphysema on right chest and a repeat CXR shows minimal pneumothorax on the right chest wall which has not increased in size. At the time of my examination patient was on assist control 400/30/18/0.100 and the subcutaneous emphysema was noted after the patient's PEEP was increased. Patient remains sedated on Versed, fentanyl, Precedex and propofol with vasopressor support of Levophed. Patient's family decided to make the patient an AND and his CODE STATUS was updated. We will continue supportive care. Infectious disease has escalated antibiotic therapy to Zosyn. 12/26. Remains mechanically ventilated. On AC 30/400/100% PEEP 22. Not r esponsive. Sedated. On pressors. Labs reviewed. On antibiotics. 12/27. No change in medical condition. Remains on AC 100% PEEP of 22. Sedated and on pressors. On antibiotics-Zosyn. ID and critical care on board. General surgery also following for management of chest tubes. Prognosis is very poor 12/28: Patient remains sedated on Versed, fentanyl, propofol and Precedex and has vasopressor support with Levophed quad strength at 22. Patient subcu air seems to be bilateral in his upper chest. At the time my examination patient is on 400/30/22/.95 and RT will wean his vent 0.90. Patient still has leukocytosis, metabolic alkalosis, hypokalemia. 12/29: Patient remains sedated on Versed, fentanyl, Precedex and propofol with vasopressor support with Levophed. Patient remains on assist control 400/30/22/0.90 and still [place] ptosis. Patient hypokalemia has resolved Hospitalist Physical - Constitutional Vitals: Temp Pulse Resp BP Pulse Ox 97.9 F 74 30 H 120/65 98 12/29/20 12:00 12/29/20 12:30 12/29/20 12:30 12/29/20 12:30 12/29/20 12:30 General appearance: Present: other (comatose) - Neck Neck: Present: normal ROM - Respiratory Respiratory: bilateral: rhonchi - Cardiovascular Rhythm: regular Heart Sounds: Present: S1 & S2. Absent: systolic murmur, diastolic murmur - Extremities Extremities: no ischemia, pulses intact, pulses symmetrical, No edema, normal temperature, normal color Peripheral Pulses: within normal limits - Abdominal General gastrointestinal: soft, non-tender, non-distended, normal bowel sounds - Integumentary Integumentary: Present: warm, dry - Psychiatric Psychiatric: other (Sedated) - Neurologic Neurologic: other (Sedated) - Allied Health Allied health notes reviewed: nursing, RT, social work, case management HEART Score - HEART Score Troponin: Troponin T < 0.010 ng/mL (0.00-0.029) 12/11/20 06:30 Results - Labs CBC & Chem 7: 12/29/20 04:00 12/29/20 04:00 Labs: Laboratory Last Values WBC 18.0 K/mm3 (4.5-11.0) H 12/29/20 04:00 RBC 2.80 M/mm3 (3.65-5.03) L 12/29/20 04:00 Hgb 8.0 gm/dl (11.8-15.2) L 12/29/20 04:00 Hct 25.3 % (35.5-45.6) L 12/29/20 04:00 MCV 90 fl (84-94) 12/29/20 04:00 MCH 29 pg (28-32) 12/29/20 04:00 MCHC 32 % (32-34) 12/29/20 04:00 RDW 17.1 % (13.2-15.2) H 12/29/20 04:00 Plt Count 486 K/mm3 (140-440) H 12/29/20 04:00 Lymph % (Auto) 2.0 % (13.4-35.0) L 11/27/20 06:25 [place] % (Auto) 5.2 % (0.0-7.3) 11/27/20 06:25 Eos % (Auto) 0.0 % (0.0-4.3) 11/27/20 06:25 Baso % (Auto) 0.1 % (0.0-1.8) 11/27/20 06:25 Lymph # (Auto) 0.3 K/mm3 (1.2-5.4) L 11/27/20 06:25 [place] # (Auto) 0.7 K/mm3 (0.0-0.8) 11/27/20 06:25 Eos # (Auto) 0.0 K/mm3 (0.0-0.4) 11/27/20 06:25 Baso # (Auto) 0.0 K/mm3 (0.0-0.1) 11/27/20 06:25 Add Manual Diff Complete 12/29/20 04:00 Total Counted 100 12/29/20 04:00 Seg Neutrophils % Envelope Patternmaker 12/24/20 18:57 Seg Neuts % (Manual) 83.0 % (40.0-70.0) H 12/29/20 04:00 Band Neutrophils % 2.0 % 12/28/20 05:45 Lymphocytes % (Manual) 10.0 % (13.4-35.0) L 12/29/20 04:00 Monocytes % (Manual) 4.0 % (0.0-7.3) 12/29/20 04:00 Eosinophils % (Manual) 2.0 % (0.0-4.3) 12/28/20 05:45 Metamyelocytes % 3.0 % 12/29/20 04:00 Myelocytes % 3.0 % 12/28/20 05:45 Nucleated RBC % 2.0 % (0.0-0.9) H 12/29/20 04:00 Seg Neutrophils # 12.7 K/mm3 (1.8-7.7) H 11/27/20 06:25 Seg Neutrophils # Man 14.9 K/mm3 (1.8-7.7) H 12/29/20 04:00 Band Neutrophils # 0.0 K/mm3 12/29/20 04:00 Lymphocytes # (Manual) 1.8 K/mm3 (1.2-5.4) 12/29/20 04:00 Abs React Lymphs (Man) 0.0 K/mm3 12/29/20 04:00 Monocytes # (Manual) 0.7 K/mm3 (0.0-0.8) 12/29/20 04:00 Eosinophils # (Manual) 0.0 K/mm3 (0.0-0.4) 12/29/20 04:00 Basophils # (Manual) 0.0 K/mm3 (0.0-0.1) 12/29/20 04:00 Metamyelocytes # 0.5 K/mm3 12/29/20 04:00 Myelocytes # 0.0 K/mm3 12/29/20 04:00 Promyelocytes # 0.0 K/mm3 12/29/20 04:00 Blast Cells # 0.0 K/mm3 12/29/20 04:00 WBC Morphology Not Reportable 12/29/20 04:00 Hypersegmented Neuts Not Reportable 12/29/20 04:00 Hyposegmented Neuts Not Reportable 12/29/20 04:00 Hypogranular Neuts Not Reportable 12/29/20 04:00 Smudge Cells Not Reportable 12/29/20 04:00 Toxic Granulation Not Reportable 12/29/20 04:00 Toxic Vacuolation Not Reportable 12/29/20 04:00 Dohle Bodies Not Reportable 12/29/20 04:00 Pelger-Huet Anomaly Not Reportable 12/29/20 04:00 Tony Rods Not Reportable 12/29/20 04:00 Platelet Estimate Consistent w auto 12/29/20 04:00 Clumped Platelets Not Reportable 12/29/20 04:00 Plt Clumps, EDTA Not Reportable 12/29/20 04:00 Large Platelets Not Reportable 12/29/20 04:00 Giant Platelets Not Reportable 12/29/20 04:00 Platelet Satelliting Not Reportable 12/29/20 04:00 Plt Morphology Comment Not Reportable 12/29/20 04:00 RBC Morphology Not Reportable 12/29/20 04:00 Dimorphic RBCs Not Reportable 12/29/20 04:00 Polychromasia Few 12/29/20 04:00 Hypochromasia Not Reportable 12/29/20 04:00 Poikilocytosis Not Reportable 12/29/20 04:00 Anisocytosis 1+ 12/29/20 04:00 Microcytosis Not Reportable 12/29/20 04:00 Macrocytosis Not Reportable 12/29/20 04:00 Spherocytes Not Reportable 12/29/20 04:00 Pappenheimer Bodies Not Reportable 12/29/20 04:00 Sickle Cells Not Reportable 12/29/20 04:00 Target Cells Not Reportable 12/29/20 04:00 Tear Drop Cells Not Reportable 12/29/20 04:00 Ovalocytes Not Reportable 12/29/20 04:00 Stomatocytes Rare 12/27/20 14:09 Helmet Cells Not Reportable 12/29/20 04:00 [place] Bodies Not Reportable 12/29/20 04:00 [place] Rings Not Reportable 12/29/20 04:00 Henrry Cells Not Reportable 12/29/20 04:00 Bite Cells Not Reportable 12/29/20 04:00 Crenated Cell Not Reportable 12/29/20 04:00 Elliptocytes Not Reportable 12/29/20 04:00 Acanthocytes (Spur) Not Reportable 12/29/20 04:00 Rouleaux Not Reportable 12/29/20 04:00 Hemoglobin C Crystals Not Reportable 12/29/20 04:00 Schistocytes Not Reportable 12/29/20 04:00 Malaria parasites Not Reportable 12/29/20 04:00 Yovani Bodies Not Reportable 12/29/20 04:00 Hem Pathologist Commnt No 12/29/20 04:00 D-Dimer 926.11 ng/mlDDU (0-234) H 11/26/20 06:04 ABG pH 7.319 (7.320-7.450) L 12/29/20 04:00 POC ABG pCO2 71.0 mmHg (32.0-48.0) H 12/29/20 04:00 ABG pCO2 81.3 mm Hg 12/08/20 04:12 POC ABG pO2 65.2 mmHg (83-108) L 12/29/20 04:00 ABG pO2 69.7 mm Hg (80.0-90.0) L 12/08/20 04:12 POC ABG HCO3 35.7 12/29/20 04:00 ABG HCO3 50.1 mmol/L (20.0-26.0) H 12/08/20 04:12 ABG O2 Saturation 90.9 (0-100) 12/29/20 04:00 ABG O2 Content 13.0 (0.0-44) 12/07/20 05:20 POC ABG Base Excess 8.1 12/29/20 04:00 ABG Base Excess 21.6 mmol/L (-2.0-3.0) H 12/08/20 04:12 ABG Hemoglobin 8.7 (12.0-17.5) L 12/29/20 04:00 ABG Oxyhemoglobin 90.3 (94-98) L 12/28/20 03:48 ABG Carboxyhemoglobin 2.0 % (0.0-5.0) 12/08/20 04:12 ABG Methemoglobin 0.3 (0.0-1.5) 12/28/20 03:48 ABG Sodium 138.2 mmol/L (136.0-145.0) 12/29/20 04:00 ABG Potassium 3.7 mmol/L (3.40-4.50) 12/29/20 04:00 ABG Chloride 102.0 mmol/L (98-107) 12/29/20 04:00 ABG Glucose 140 mg/dL (65-95) H 12/29/20 04:00 Oxyhemoglobin 93.2 % (95.0-99.0) L 12/08/20 04:12 Carboxyhemoglobin 1.6 (0.5-1.5) H 12/28/20 03:48 FiO2 90 12/23/20 05:19 FiO2 % 90 12/29/20 04:00 Sodium 141 mmol/L (137-145) 12/29/20 04:00 Potassium 3.8 mmol/L (3.6-5.0) 12/29/20 04:00 Chloride 100.6 mmol/L (98-107) 12/29/20 04:00 Carbon Dioxide 38 mmol/L (22-30) H 12/29/20 04:00 Anion Gap 6 mmol/L 12/29/20 04:00 BUN 16 mg/dL (9-20) 12/29/20 04:00 Creatinine 0.3 mg/dL (0.8-1.3) L 12/29/20 04:00 Estimated GFR > 60 ml/min 12/29/20 04:00 BUN/Creatinine Ratio 53 % 12/29/20 04:00 Glucose 135 mg/dL (75-100) H 12/29/20 04:00 POC Glucose 102 mg/dL (70-105) 12/28/20 23:15 Hemoglobin A1c 11.7 % (4-6) H 11/16/20 05:29 Lactic Acid 2.60 mmol/L (0.7-2.0) H* 11/16/20 05:29 Calcium 7.5 mg/dL (8.4-10.2) L 12/29/20 04:00 Phosphorus 2.60 mg/dL (2.5-4.5) 12/17/20 17:25 Magnesium 1.60 mg/dL (1.7-2.3) L 12/17/20 17:25 Ferritin 778.8 ng/mL (30.0-300.0) H 11/26/20 04:00 Total Bilirubin 0.40 mg/dL (0.1-1.2) 12/29/20 04:00 AST 26 units/L (5-40) 12/29/20 04:00 ALT 21 units/L (7-56) 12/29/20 04:00 Alkaline Phosphatase 103 units/L (35-129) 12/29/20 04:00 Lactate Dehydrogenase 288 units/L (91-180) H 11/26/20 04:00 Total Creatine Kinase 47 units/L (55-170) L 12/17/20 17:25 CK-MB (CK-2) 1.8 ng/mL (0.0-4.0) 12/17/20 17:25 CK-MB (CK-2) Rel Index 3.8 (0-4) 12/17/20 17:25 Troponin T < 0.010 ng/mL (0.00-0.029) 12/11/20 06:30 C-Reactive Protein 1.40 mg/dL (0.00-1.30) H 11/26/20 04:00 NT-Pro-B Natriuret Pep 107.2 pg/mL (0-900) 11/17/20 10:21 Total Protein 6.1 g/dL (6.3-8.2) L 12/29/20 04:00 Albumin 1.5 g/dL (3.9-5) L 12/29/20 04:00 Albumin/Globulin Ratio 0.3 % 12/29/20 04:00 Triglycerides 284 mg/dL (2-149) H 12/29/20 04:00 Procalcitonin 0.16 ng/mL (<0.15) 12/12/20 05:16 Arterial Blood Glucose 140 mg/dL (65-95) H 12/29/20 04:00 Arterial Blood Ionized Calcium 4.3 mg/dL (4.6-5.3) L 12/29/20 04:00 Urine Color Yellow (Yellow) 12/21/20 Unknown Urine Turbidity Cloudy (Clear) 12/21/20 Unknown Urine pH 6.0 (5.0-7.0) 12/21/20 Unknown Ur Specific [place] 1.013 (1.003-1.030) 12/21/20 Unknown Urine Protein <15 mg/dl mg/dL (Negative) 12/21/20 Unknown Urine Glucose (UA) Neg mg/dL (Negative) 12/21/20 Unknown Urine Ketones Neg mg/dL (Negative) 12/21/20 Unknown Urine Blood Neg (Negative) 12/21/20 Unknown Urine Nitrite Neg (Negative) 12/21/20 Unknown Urine Bilirubin Neg (Negative) 12/21/20 Unknown Urine Urobilinogen < 2.0 mg/dL (<2.0) 12/21/20 Unknown Ur Leukocyte Esterase Mod (Negative) 12/21/20 Unknown Urine WBC (Auto) 172.0 /HPF (0.0-6.0) H 12/21/20 Unknown Urine RBC (Auto) > 182.0 /HPF (0.0-6.0) 12/21/20 Unknown U Epithel Cells (Auto) 3.0 /HPF (0-13.0) 12/21/20 Unknown Urine Bacteria (Auto) 2+ /HPF (Negative) 12/21/20 Unknown Ur Renal Epithelial Cell <1 /LPF 12/21/20 Unknown Urine Mucus 2+ /HPF 12/21/20 Unknown Urine Yeast (Budding) 3+ /HPF 12/21/20 Unknown Vancomycin Trough 16.9 ug/mL (5.0-20.0) 12/19/20 15:46 Coronavirus (PCR) Positive (Negative) A 12/13/20 10:00 Hepatitis A IgM Ab Non-reactive (NonReactive) 12/17/20 21:40 Hep Bs Antigen Non-reactive (Negative) 12/17/20 21:40 Hep B Core IgM Ab Non-reactive (NonReactive) 12/17/20 21:40 Hepatitis C Antibody Non-reactive (NonReactive) 12/17/20 21:40 HIV 1&2 Antibody Rapid Non react (Non React) 12/17/20 21:40 HIV P24 Antigen Non react (Non React) 12/17/20 21:40 - Diagnostic Impressions Diagnostic Impressions: Echocardiogram 11/16/20 10:34 Transthoracic Echocardiogram Indication: Shortness of breath-COVID BP: 108/77 HR: 92 Conclusions *Global left ventricular systolic function is normal. *The estimated ejection fraction is 60-65%. *Mild to moderate concentric left ventricular hypertrophy is observed. *There is trace of mitral regurgitation. *There is mild to moderate tricuspid regurgitation. *There is evidence of mild pulmonary hypertension. *The right ventricular systolic pressure is calculated at 31 mmHg. Findings Left Ventricle: The left ventricular chamber size is normal. Mild to moderate concentric left ventricular hypertrophy is observed. Global left ventricular systolic function is normal. The estimated ejection fraction is 60-65%. Left Atrium: The left atrial chamber size is normal. Right Ventricle: The right ventricular cavity size is normal. The right ventricular global systolic function is normal. Right Atrium: The right atrial cavity size is normal. Aortic Valve: The aortic valve is trileaflet. There is no evidence of aortic regurgitation. There is no evidence of aortic stenosis. Mitral Valve: The mitral valve leaflets appear normal. There is trace of mitral regurgitation. There is no evidence of mitral stenosis. Tricuspid Valve: The tricuspid valve leaflets are normal. There is mild to moderate tricuspid regurgitation. The right ventricular systolic pressure is calculated at 31 mmHg. There is evidence of mild pulmonary hypertension. Pulmonic Valve: There is trace pulmonic regurgitation. Pericardium: There is no pericardial effusion. Aorta: There is no dilatation of the ascending aorta. There is no dilatation of the aortic root. Venous: The inferior vena cava appears normal in size. Measurements Chambers 2D Name Value Normal Range IVSd (2D) 0.81 cm (0.6 - 1.1) LVPWd (2D) 0.79 cm (0.6 - 1.1) LVIDd (2D) 4.22 cm (3.7 - 5.6) LVIDs (2D) 3.1 cm (2 - 3.8) LV FS (2D) 26.71 % - EF Teichholz (2D) 52.55 % - Ao root diameter (2D) 3.34 cm (2 - 3.7) Volumes/Mass Name Value Normal Range LA ESV SP 4CH (A/L) 10.87 ml - LA ESV SP 2CH (A/L) 18.74 ml - LA ESV BP (A/L) 16.38 ml - LA ESV BP (A/L) index 8.62 ml/m2 - LA ESV SP 4CH (MOD) 10.32 ml - LA ESV SP 2CH (MOD) 17.66 ml - LA ESV BP (MOD) 15.12 ml - LA ESV BP (MOD) index 7.96 ml/m2 - Diastolic/Systolic Function Name Value Normal Range MV E-wave Vmax 0.76 m/sec - MV deceleration time 133.63 msec - MV A-wave Vmax 1.1 m/sec - MV E:A ratio 0.69 ratio - Aortic Valve Name Value Normal Range AV Vmax 1.44 m/sec - AV VTI 22.94 cm - AV peak gradient 8.33 mmHg - AV mean gradient 4.73 mmHg - LVOT diameter 2.2 cm - LVOT Vmax 1.04 m/sec - LVOT VTI 18.88 cm - LVOT peak gradient 4.34 mmHg - LVOT mean gradient 2.31 mmHg - SV LVOT 72.05 ml - EVANGELISTA (continuity Vmax) 2.75 cm2 - EVANGELISTA (continuity VTI) 3.14 cm2 - Tricuspid Valve Name Value Normal Range TR Vmax 2.64 m/sec - TR peak gradient 28 mmHg - RAP 3 mmHg - RVSP 31 mmHg - Gupta/IV: Voiding Method Indwelling Catheter IV Catheter Type [Left Peripheral IV Antecubital] Active Medications - Current Medications Current Medications: Generic Name Dose Route Start Last Admin Trade Name Freq PRN Reason Stop Dose Admin Acetaminophen 650 mg 11/15/20 23:55 12/25/20 07:24 Acetaminophen 325 Mg Tab PO 650 mg Q4H PRN Administration Pain MILD(1-3)/Fever >100.5/BUTTS Lipase/Protease/Amylase 1 each 11/23/20 11:53 12/05/20 23:45 Lipase 10,500/Protease 25,000/Amylase 43,750 (Units) Dr Slater FEEDTUBE 1 each PRN PRN Administration For Clogged Feeding Tube Dextrose 25 ml 12/10/20 05:21 12/28/20 12:18 Dextrose 50% In Water (25gm) 50 Ml Syringe IV 10 ml Q30MIN PRN Administration Hypoglycemia Protocol Docusate Sodium 100 mg 12/23/20 10:00 12/29/20 09:07 Docusate Sodium 100 Mg/10 Ml Oral Liqd PO 100 mg BID RAEANN Administration Enoxaparin Sodium 40 mg 12/03/20 22:00 12/28/20 22:08 Enoxaparin 40 Mg/0.4 Ml Inj SUB-Q 40 mg QDAY@2200 RAEANN Administration Famotidine 20 mg 12/16/20 10:00 12/29/20 09:07 Famotidine 20 Mg Tab PO 20 mg BID RAEANN Administration Hydrophilic Ointment 1 applic 11/21/20 21:53 11/30/20 21:33 Lip Therapy Vaseline TP 1 applic Q2HR PRN Administration Dry Lips Midazolam HCl 100 mg/ Sodium 100 mls @ 2 mls/hr 11/21/20 22:00 12/29/20 11:50 Chloride IV 5 mg/hr TITR RAEANN 5 mls/hr Administration Protocol 2 MG/HR Propofol 1,000 mg in 100 mls @ 2.175 mls/hr 11/27/20 12:00 12/29/20 09:07 Diprivan 10 Mg/Ml IV 15 mcg/kg/min TITR RAEANN 6.525 mls/hr Administration Protocol 5 MCG/KG/MIN Dexmedetomidine HCl 400 mcg/ 104 mls @ 4.441 mls/hr 12/10/20 13:00 12/29/20 11:07 Sodium Chloride IV 0.7 mcg/kg/hr TITRATE RAEANN 15.543 mls/hr Administration Protocol 0.2 MCG/KG/HR Fentanyl Citrate 2,000 mcg in 100 mls @ 3.9 mls/hr 12/18/20 19:00 12/29/20 09:06 Fentanyl Drip Premix IV 4 mcg/kg/hr TITR RAEANN 15.6 mls/hr Administration Protocol 1 MCG/KG/HR Vasopressin 20 unit/ Sodium 101 mls @ 9.09 mls/hr 12/24/20 18:30 Chloride IV TITR [facility] Protocol 0.03 UNITS/MIN Piperacillin Sod/Tazobactam Sod 4.5 gm in 100 mls @ 200 mls/hr 12/25/20 12:00 12/29/20 11:51 Zosyn/Ns 4.5gm/100ml IV 200 mls/hr Q6H [facility] Administration Protocol Norepinephrine 8 mg/ Sodium 250 mls @ 3.75 mls/hr 12/25/20 22:00 12/29/20 11:50 Chloride IV 22 mcg/min TITR RAEANN 41.25 mls/hr Administration Protocol 2 MCG/MIN Insulin Glargine 8 units 12/17/20 13:52 12/28/20 22:50 Insulin Glargine 100 Units/Ml SUB-Q Not Given QHS [facility] Insulin Human Lispro 0 unit 11/22/20 06:00 12/29/20 11:57 Insulin Lispro 100 Unit/Ml SUB-Q Not Given Q6HR [facility] Protocol Metoclopramide HCl 10 mg 11/15/20 23:55 Metoclopramide 10 Mg/2 Ml Inj IV Q6H PRN Nausea And Vomiting Multi-Ingred Cream/Lotion/Oil/Oint 1 applic 11/21/20 21:53 Mineral Oil/Petrolatum, White Ophth Oint 3.5 Gm OU Q4HR PRN Dry Eye(s) Ondansetron HCl 4 mg 11/15/20 23:55 Ondansetron 4 Mg/2 Ml Inj IV Q8H PRN Nausea And Vomiting Polyethylene Glycol 17 gm 12/23/20 10:00 12/29/20 09:07 Polyethylene Glycol 3350 17 Gm Powder PO 17 gm QDAY RAEANN Administration Senna/Docusate Sodium 2 tab 12/21/20 14:00 12/29/20 05:12 Sennosides/Docusate Sodium 8.6/50 Mg Tab PO 2 tab Q8HR RAEANN Administration Simple Syrup 15 ml 11/23/20 11:53 Simple Syrup 15 Ml FEEDTUBE PRN PRN Hypoglycemia Simple Syrup 30 ml 11/23/20 11:53 Simple Syrup 15 Ml FEEDTUBE PRN PRN Hypoglycemia Sodium Bicarbonate 325 mg 11/23/20 11:53 12/05/20 23:46 Sodium Bicarbonate 325 Mg Tab FEEDTUBE 325 mg PRN PRN Administration For Clogged Feeding Tube Sodium Chloride 10 ml 11/16/20 10:00 12/29/20 09:15 Sodium Chloride 0.9% 10 Ml Flush Syringe IV 10 ml BID RAEANN Administration Sodium Chloride 10 ml 11/15/20 23:55 12/03/20 00:21 Sodium Chloride 0.9% 10 Ml Flush Syringe IV 10 ml PRN PRN Administration LINE FLUSH Nutrition/Malnutrition Assess - Dietary Evaluation Nutrition/Malnutrition Findings: Nutrition Notes Start: 11/20/20 12:03 Freq: Status: Active Protocol: Document 12/25/20 11:32 AL (Rec: 12/25/20 11:37 AL [id number]) Co-Sign 12/25/20 11:32 CW Nutrition Notes Initial or Follow up Reassessment Current Diagnosis Diabetes,Sepsis,Respiratory Failure Other Pertinent Diagnosis Bilat pneu, COVID-19 (+) Current Diet Glucerna 1.2 at 60 ml/hr Labs/Tests Reviewed Pertinent Medications Levophed in NS Propofol at 8.7 ml/hr (229 kcal) Lasix Height 5 ft 6 in Weight 83.9 kg Usual Body Weight 80.5 kg [place] Body Weight (kg) 64.54 BMI 29.8 Weight change and time frame Wt change 2.8 kg (3%) noted. Pt has edema. Weight Status Overweight Subjective/Other Information F/U for TF tolerance and last BM. Per RN, pt had last BM yesterday 12/24. Pt tolerates TF at 60 ml/hr (goal rate). Percent of energy/protein needs met: 100%/100% Burn Absent Trauma Absent GI Symptoms None Difficulty In Swallowing,Chewing Current % PO Negligible Minimum of two criteria Yes Interpretation of Weight Loss (severe) >2% in 1 week Fluid Accumulation Moderate to Severe (severe) #3 Nutrition Diagnosis Inadequate oral intake Diagnosis Progress(for reassessment Continues documentation) #2 Nutrition Diagnosis Malnutrition As Evidenced by Signs and Symptoms Pt meeting 100%/100% of estimated energy/protein needs via TF for >7 days Diagnosis Progress(for reassessment Improved documentation) #1 Nutrition Diagnosis Unintended weight loss Diagnosis Progress(for reassessment Continues documentation) Is patient on ventilator? Yes Is Patient Ambulatory and/or Out of Bed No REE-([facility]-confined to bed) 1920.756 Kcal/Kg value to use for calculation 22 Approximate Energy Requirements Using 1846 kcal/Kg Calculation Used for Recommendations [facility] Additional Notes Protein: 87-145 g/day (1.2-2g/ kg) Fluid: 1ml/kcal or per MD Nutrition Intervention Change Diet Order: Continue TF Nutrition Support: Glucerna 1.2 at 65 ml/hr. Flush 125 ml q4h Kcal 1,872 Protein (gm) 93 Fluid (mL) 1,255 Goal #1 Meet at least 75% of energy and protein needs via TF Goal #2 TF tolerance Anticipated Discharge Needs: Unable to determine at this time Follow-Up By: 01/01/21 Additional Comments F/U for TF tolerance.
--- NOTE | 2020-12-29 14:00 | Progress Note ---
Assessment and Plan Cultures: SARS CoV-2 PCR: positive Blood culture: No growth 11/21/2020 tracheal aspirate culture: MRSA 12/09/2020 blood culture: no growth 12/09/2020 sputum culture: Klebsiella 12/17/2020 blood culture: 1 bottle with coag negative staph, second bottle with Enterococcus faecalis 12/17/2020 tracheal aspirate culture: Usual respiratory zachariah 12/21/2020 blood culture: No growth A/P: 59-year-old male with: #Shock: multifactorial. #GPC bacteremia: source unclear. Typically, Enterococcus is not considered a contaminant, however only present in 1 out of 4 bottles while another set is growing Coag negative Staph. #Bilateral pneumonia: secondary to COVID-19. Completed abx, remdesivir. #Klebsiella on ET aspirate culture: ?colonization v/s true disease, difficult to differentiate. Will treat given development of low-grade temperatures and white count. #B/L pneumothorax and pneumomediastinum: s/p chest tubes. #Acute hypoxic respiratory failure: Remains on the vent. Recs: -continue Zosyn, D5 given persistent shock -extremely poor prognosis, agree with DNR status, recent literature showing mortality of 100% in COVID-19 patients who required CPR Rm Carrillo MD [facility] O: [phone] F: [phone] Subjective Date of service: 12/29/20 Principal diagnosis: COVID-19 Interval history: Afebrile, white count 18. Objective - Exam Narrative Exam: Physical exam deferred due to PPE conservation strategy. Please refer to primary team's note. - Constitutional Vitals: Vital Signs Temp Pulse Resp BP Pulse Ox 97.9 F 74 30 H 119/68 99 12/29/20 12:00 12/29/20 13:15 12/29/20 13:15 12/29/20 13:15 12/29/20 13:15 Temperature -Last 24 Hours Temperature 97.9 F Temperature 97.9 F Temperature 98.2 F Temperature 98.8 F Temperature 98.6 F Temperature 98.6 F - Labs CBC & Chem 7: 12/29/20 04:00 12/29/20 04:00 Labs: Abnormal lab results 12/29/20 12/29/20 12/29/20 Range/Units 04:00 04:00 04:00 WBC 18.0 H (4.5-11.0) K/mm3 RBC 2.80 L (3.65-5.03) M/mm3 Hgb 8.0 L (11.8-15.2) gm/dl Hct 25.3 L (35.5-45.6) % RDW 17.1 H (13.2-15.2) % Plt Count 486 H (140-440) K/mm3 Seg Neuts % (Manual) 83.0 H (40.0-70.0) % Lymphocytes % (Manual) 10.0 L (13.4-35.0) % Nucleated RBC % 2.0 H (0.0-0.9) % Seg Neutrophils # Man 14.9 H (1.8-7.7) K/mm3 ABG pH 7.319 L (7.320-7.450) POC ABG pCO2 71.0 H (32.0-48.0) mmHg POC ABG pO2 65.2 L (83-108) mmHg ABG Hemoglobin 8.7 L (12.0-17.5) ABG Glucose 140 H (65-95) mg/dL Carbon Dioxide 38 H (22-30) mmol/L Creatinine 0.3 L (0.8-1.3) mg/dL Glucose 135 H (75-100) mg/dL POC Glucose (70-105) mg/dL Calcium 7.5 L (8.4-10.2) mg/dL Total Protein 6.1 L (6.3-8.2) g/dL Albumin 1.5 L (3.9-5) g/dL Triglycerides 284 H (2-149) mg/dL Arterial Blood Glucose 140 H (65-95) mg/dL Arterial Blood Ionized Calcium 4.3 L (4.6-5.3) mg/dL 12/29/20 12/29/20 Range/Units 05:42 11:54 WBC (4.5-11.0) K/mm3 RBC (3.65-5.03) M/mm3 Hgb (11.8-15.2) gm/dl Hct (35.5-45.6) % RDW (13.2-15.2) % Plt Count (140-440) K/mm3 Seg Neuts % (Manual) (40.0-70.0) % Lymphocytes % (Manual) (13.4-35.0) % Nucleated RBC % (0.0-0.9) % Seg Neutrophils # Man (1.8-7.7) K/mm3 ABG pH (7.320-7.450) POC ABG pCO2 (32.0-48.0) mmHg POC ABG pO2 (83-108) mmHg ABG Hemoglobin (12.0-17.5) ABG Glucose (65-95) mg/dL Carbon Dioxide (22-30) mmol/L Creatinine (0.8-1.3) mg/dL Glucose (75-100) mg/dL POC Glucose 126 H 128 H (70-105) mg/dL Calcium (8.4-10.2) mg/dL Total Protein (6.3-8.2) g/dL Albumin (3.9-5) g/dL Triglycerides (2-149) mg/dL Arterial Blood Glucose (65-95) mg/dL Arterial Blood Ionized Calcium (4.6-5.3) mg/dL
[2020-12-29] MEDS: INSULIN GLARGINE 100 UNITS/ML SUB-Q SCH (21:09)
[2020-12-29] MEDS: ENOXAPARIN 40 MG/0.4 ML INJ SUB-Q SCH (21:09)
[2020-12-30] MEDS: INSULIN LISPRO 100 UNIT/ML SUB-Q SCH ×4 (00:22→18:09)
[2020-12-30] MEDS: fentaNYL DRIP Premix 2,000 MCG/100 ML BAG IV SCH ×4 (03:38→23:13)
[2020-12-30] MEDS: NORepinephrine 8 MG in SODIUM CHLORIDE 0.9% 250ML 242 ML IV SCH ×3 (05:44→19:00)
[2020-12-30] MEDS: SENNOSIDES/DOCUSATE SODIUM 8.6/50 MG TAB PO SCH ×3 (05:56→21:31)
[2020-12-30] MEDS: PIPERACIL/TAZOBACTA 4.5/NS 100 4.5 GM/100 ML VIAL IV SCH ×3 (05:56→18:09)
[2020-12-30 06:06] LABS: Hematocrit 26.1 % (35.5-45.6); Hemoglobin 8.2 gm/dl (11.8-15.2); Mean Corpuscular HGB Conc 32 % (32-34); Mean Corpuscular Volume 90 fl (84-94); Platelet Count 439 K/mm3 (140-440); Red Blood Count 2.89 M/mm3 (3.65-5.03); Red Cell Distribution Width 17.3 % (13.2-15.2)
[2020-12-30 06:07] LABS: Basophils % (Auto) 0.3 % (0.0-1.8); Eosinophils # (Auto) 0.1 K/mm3 (0.0-0.4); Eosinophils % (Auto) 0.6 % (0.0-4.3); Lymphocytes # (Auto) 1.4 K/mm3 (1.2-5.4); Lymphocytes % (Auto) 9.2 % (13.4-35.0); Monocytes # (Auto) 0.4 K/mm3 (0.0-0.8); Monocytes % (Auto) 2.9 % (0.0-7.3)
[2020-12-30 06:23] LABS: Alanine Aminotransferase 21 units/L (7-56); Albumin 1.4 g/dL (3.9-5); Blood Urea Nitrogen 16 mg/dL (9-20); Calcium 7.6 mg/dL (8.4-10.2); Hemolysis Index 0
[2020-12-30 06:24] LABS: BUN/Creatinine Ratio 53
[2020-12-30] MEDS: POLYETHYLENE GLYCOL 3350 17 GM POWDER PO SCH (10:08)
[2020-12-30] MEDS: DOCUSATE SODIUM 100 MG/10 ML ORAL LIQD PO SCH ×2 (10:08→21:31)
[2020-12-30] MEDS: FAMOTIDINE 20 MG TAB PO SCH ×2 (10:08→21:31)
--- NOTE | 2020-12-30 11:12 | Progress Note ---
Assessment and Plan Assessment and plan: -S/p antibiotic therapy -Remains on vasopressor support -RASS goal -4 per CCM -Chest tube management as per surgery/CCM -Maintained on mechanical ventilation, wean as tolerated -Continue to monitor glucose levels and urine output -Continue supportive care -ID and critical care following -Prognosis is very poor DVT/GI prophylaxis: SCDs to bilateral lower extremities while in bed, Lovenox subcu, PPI Disposition: ICU The high probability of a clinically significant, sudden or life threatening deterioration of the [multi] system(s) required my full and direct attention, intervention and personal management. The aggregate critical care time was [35] minutes. This time is in addition to time spent performing reported procedures but includes the following: [x] Data Review and interpretation [x] Patient assessment and monitoring of vital signs [x] Documentation [x] Medication orders and management History Interval history: 59-year-old female who is smoker who presented to [facility] with shortness of breath cough fever weakness for 1 to 2 days prior to arrival. Per EMS the patient was severely hypoxic with saturations in the low 80s. With all oxygen and nonrebreather came down to low 90s. ID, pulmonary, CCM were consulted. Septic Shock Coag Negative staph/Entrococcus bactermia MRSA/Klebsiella in sputum COVID-19 pneumonia Acute hypoxic hypercapnic respiratory failure Bilateral pneumothorax Pneumomediastinum with subcutaneous emphysema Elevated D-dimer Transaminitis secondary to Covid 19 Klebsiella pneumonia Type 2 diabetes mellitus Severe protien calorie malnutrition secondary to critical illness Metabolic alkalosis Hypercapnia 2/1: Patient continues on BiPAP throughout the night. Labs are remarkable for hypoxia with improving renal function but lactic acidosis without fever. CTA has been ordered to rule out pulmonary embolism. I agree with increasing enoxaparin to twice daily full dose for empiric treatment of pulmonary embolism. Will obtain ID consultation on further evaluation for possible underlying pneumonia versus COVID-19. We will also obtain echocardiogram for evaluation. Will discontinue fluids at t his time. 2/2; Continue supportive care, Patient remains with very guarded prognosis, remains on BiPAP, continues on Remdesivir, and steroids. Will continue anticoagulation, unable to get CTA Chest due to patients unstable clinical status. Will adjust insulin for better blood glucose 2/3: Continues on BIPAP, no clear improvement at this time. Will continue steroids therapy Remdesivir and also Full anticoagulation at this time. Will update family. Discussed with Termite Control Representative. 11/19: Taking a break from the BiPAP on high flow and nonrebreather 100% with saturation of 90% becomes hypoxic with any movement. Termite Control Representative input noted will get a dose of Lasix today. Will await a discussion with ID for possibly increasing steroid. I updated Patient's Cousin, Tayla Esquivel who is the emergency contact finger assembler. Blood sugar remains fluctuating secondary to steriods, Encouraged Prone positioning. Noted with mild hyponatremia we will continue to monitor and manage 11/20: Continue supportive care wean oxygen as tolerated prognosis remains guarded. Encouraged to progress as tolerated. Awaiting labs today. Discussed with nursing staff and patient at bedside. 11/21: Discontinued Dexamethasone as Solumedrol started secondary to increased oxygen demand. Will give additional insulin for better control. Continue oxygen support patient still on high flow. Prognosis still guarded 11/22: Patient was intubated and placed on mechanical ventilation. Continue current medication. Will check a.m. labs today. Noted still with hypotension. Doubt septic shock at this time as patient has no new fever. Will adjust insulin for better blood sugar control. 11/23: Patient admitted with COVID-19 despite all efforts patient remains severely hypoxic and now is intubated. Termite Control Representative input noted. Blood pressure marginal at this time. Very poor prognosis. Continue Solu-Medrol. 11/24. Patient remains very hypoxic. Blood pressure borderline. Plan for initiation of paralytic agents as per home health travel ot. Patient may need to be tra nsferred if no improvement. 11/26. Off paralytics. Remains intubated. On steroids. Prognosis is poor. 11/27. Chest xray shows pneumomediastinum and subcutaneous emphysema. Surgery consulted. Plan for chest tube placement. Sputum culture grew MRSA. Patient started on vancomycin per ID. 11/28. Right chest tube placed yesterday by surgery. Repeat chest x-ray showed left small pneumothorax. Plan for chest tube placement on the left today. Remains on paralytic agents. 11/29. Remains intubated on vent. Had left chest tube placed yesterday. Vitals reviewed. Critical care following 11/30/ Remains on mechanical ventilation. Worsening hypoxia. Bilateral chest tubes in place. Vitals reviewed. Labs reviewed 12/01: Chest tube and mechanical ventilation remains in place, poor prognosis, FIO2 remains at 90%, adjust insulin for better blood glucose control 12/02: Patient remains on full ventilatory support and steroids, still with worsening leukocytosis ?inflammatory or infectious vs steroids. Continue vancomycin. 12/03; slowly weaning, 12/04: Still on the vent FiO2 down to 65% PEEP remains at 18. Still with poor prognosis. 12/05: Patient continues on full ventilatory support per home health travel ot PEEP remains at 18. Still with hypercapnic respiratory failure. FiO2 down to 60% this mor fabiola. Chest tube to suction still weaning off steroids in the deliberation ongoing for possible a third chest tube as last documentation by surgery shows no plan for it at this time. Continue to manage insulin for better blood sugar control. 12/06:weaned down to 60%, continue supportive care, unable to wean, 12/07; patient remains intubated on ventilatory support, chest tubes in place trach and PEG when patient's Covid test is negative,Per surgery. 12/08; Patient remains intubated remains with hypercapnia and hypoxia. Chest tube still remain in place. He is off antibiotics at this time. Continue steroids which is likely resultant to the leukocytosis. Termite Control Representative and surgeon following ID input is noted. Prognosis remains guarded to poor 12/10; patient remains intubated on vent, unable to wean awaiting trach and PEG when Covid test is negative, Continue current management 12/11; patient awaiting trach and PEG when Covid test is negative, vent dependent, poor prognosis 12/12; clinically no change, vent dependent, Patient is critically ill with very poor prognosis, awaiting trach and PEG when COVID-19 test turns negative. Plan discussed with nursing staff. Caregivers have discussed with patient's family periodically 12/13: Patient is critically ill with very poor prognosis, awaiting trach and PEG when COVID-19 test turns negative. Plan discussed with nursing staff. C aregivers have discussed with patient's family periodically 12/14: Increase UOP which we will monitor and replete as needed. Patient remain hypoxemic on ABG despite 100 FiO2, remains on fentanyl, precedex, versed and levo gtt. 12/15: Patient remains sedated on fentanyl at 3 mcg, Versed at 30 mg, dex amethasone 0.3 and was on Levophed 6 mcg this morning. Patient's vent settings rate of 30, tidal volume 425, PEEP of 18, FiO2 of 85. RT attempted to wean as tolerated. No acute events reported overnight. Bilateral chest tubes to wall suction. 12/16: Overnight the patient was noted to be bradycardic, Precedex drip was increased to 0.6/fentanyl to 4 mcg/Versed 5 mg, bilateral chest tube to suction. Current vent settings for 425/30/18/0.75, RT to wean as tolerated 12/17: Patient's T-max overnight was 101.2, obtain CXR today, blood culture x2 per ID. Patient remains on fentanyl, Versed, Precedex and Levophed. Current vent settings AC 425/30/18/0.75, RT to wean as tolerated. Continue steroid taper. 12/18: Patient remains sedated on fentanyl, Versed, Precedex and has vasopressor support of Levophed, current vent settings 425/30/18/0.75 with bilateral chest tubes to wall suction. Patient's blood culture from 12/17 grew gram-positive cocci in pairs and chains however the patient is on vancomycin and cefepime. We will continue to follow for speciation and sensitivity. 12/19: Unfortunately remains on full ventilatory support prognosis remains very poor. No new fever however since 12/17. Continue to follow cultures not finalized yet. Antibiotics per ID critical care management input noted. Patient remains on high FiO2 and PEEP at this time. 12/20: Still with intermittent fever, likely secondary to covid 19, still with hyponatremia, continue with tube feed. cultures with coagulas negative staph, await further ID input. Continues on abx. 12/21: Patient remains on fentanyl, Precedex, Versed and Levophed and assist control for 25/30/18/.100 with bilateral chest tubes in place. Patient remains on antibiotic therapy. No acute events reported overnight. 12/22: Patient remains sedated on Precedex and fentanyl and on vasopressor support, blood cultures grew coag negative Staphylococcus and Enterococcus and antibiotic therapy was deescalated to ampicillin by infectious disease. This morning patient was on assist control for 25/30/18/0.100 and respiratory therapy to decrease FiO2 as tolerated. 12/23: Patient remains sedated on Versed, fentanyl, propofol, dexamethasone and vasopressor support with Levophed. Patient is on ampicillin with a T-max of 99 and current vent settings assist-control 425/30/18/0.90 which is being weaned as tolerated by RT. Patient bowel regimen escalated. 12/24: Patient was febrile overnight to 102, remains sedated on Versed, fentanyl, propofol and Precedex and on respiratory support with Levophed. This morning at the time my examination patient was on assist control 425/30/18/0.100. Patient's bowel regimen was escalated. This afternoon patient SPO2 dropped into the upper 60s and low 70s, patient was removed off the ventilator and bagged by RT with improvement in his SPO2 to mid 70s and his ventilator settings were adjusted with an increase in PEEP to 22 and reduction in tidal volume. Patient remained with SPO2 in the 70s to 80s then suddenly dropped his SPO2 again. A CXR was obtained and patient received 40 mg of IV Lasix. CXR showed pneumothorax and general surgery was consulted for chest tube placement. Patient's existing right chest tube was replaced after removal. During chest tube was placed on the right side and a repeat CXR is being performed. Dr. German and Dr. Henry were kept up to date throughout the process and Dr. Henry was at beside during this time. I attempted to call Kehinde but was unable to contact him but left a voicemail. Jd was called and informed of changes with translation provided by Tayla. I spoke to them on the phone for over 30 minutes and explained the situation. They did not wish to change his CODE STATUS. Per CCM the patient respikes his temperature over the next 24 hours we will reculture his urine and blood. Patient remains on antibiotic therapy for 14 days per infectious disease 01/04/2021. Repeat blood cultures are negative. 12/25: Patient developed subcu emphysema on right chest and a repeat CXR shows minimal pneumothorax on the right chest wall which has not increased in size. At the time of my examination patient was on assist control 400/30/18/0.100 and the subcutaneous emphysema was noted after the patient's PEEP was increased. Patient remains sedated on Versed, fentanyl, Precedex and propofol with vasopressor support of Levophed. Patient's family decided to make the patient an AND and his CODE STATUS was updated. We will continue supportive care. Infectious disease has escalated antibiotic therapy to Zosyn. 12/26. Remains mechanically ventilated. On AC 30/400/100% PEEP 22. Not responsive. Sedated. On pressors. Labs reviewed. On antibiotics. 12/27. No change in medical condition. Remains on AC 30/40/1 100% PEEP of 22. Sedated and on pressors. On antibiotics-Zosyn. ID and critical care on board. General surgery also following for management of chest tubes. Prognosis is very poor 12/28: Patient remains sedated on Versed, fentanyl, propofol and Precedex and has vasopressor support with Levophed quad strength at 22. Patient subcu air seems to be bilateral in his upper chest. At the time my examination patient is on 400/30/22/.95 and RT will wean his vent 0.90. Patient still has leukocytosis, metabolic alkalosis, hypokalemia. 12/29: Patient remains sedated on Versed, fentanyl, Precedex and propofol with vasopressor support with Levophed. Patient remains on assist control 400/30/22/0.90 and still [place] ptosis. Patient hypokalemia has resolved 12/30: Remains sedated on propofol, Versed, fentanyl, Precedex and on Levophed. Current vent settings assist-control 400/30/22/0.80 and improving leukocytosis and metabolic alkalosis. He will complete Zosyn today. No acute events reported overnight. Patient's urine output has decreased over the past couple days and we will continue to monitor. Hospitalist Physical - Constitutional Vitals: Temp Pulse Resp BP Pulse Ox 97.4 F L 69 30 H 113/67 98 12/30/20 08:00 12/30/20 09:45 12/30/20 09:45 12/30/20 09:45 12/30/20 09:45 General appearance: Present: no acute distress, other (comatose) - EENT ENT: poor dentition - Neck Neck: Present: normal ROM - Respiratory Respiratory effort: normal Respiratory: bilateral: diminished - Cardiovascular Rhythm: regular Heart Sounds: Present: S1 & S2. Absent: systolic murmur, diastolic murmur - Extremities Extremities: no ischemia, pulses intact, pulses symmetrical, No edema, normal temperature, normal color Peripheral Pulses: within normal limits - Abdominal General gastrointestinal: soft, non-tender, non-distended, normal bowel sounds - Integumentary Integumentary: Present: warm, dry - Psychiatric Psychiatric: other (sedated) - Neurologic Neurologic: other (sedated) - Allied Health Allied health notes reviewed: nursing, RT HEART Score - HEART Score Troponin: Troponin T < 0.010 ng/mL (0.00-0.029) 12/11/20 06:30 Results - Labs CBC & Chem 7: 12/30/20 04:00 12/30/20 04:00 Labs: Laboratory Last Values WBC 15.0 K/mm3 (4.5-11.0) H 12/30/20 04:00 RBC 2.89 M/mm3 (3.65-5.03) L 12/30/20 04:00 Hgb 8.2 gm/dl (11.8-15.2) L 12/30/20 04:00 Hct 26.1 % (35.5-45.6) L 12/30/20 04:00 MCV 90 fl (84-94) 12/30/20 04:00 MCH 29 pg (28-32) 12/30/20 04:00 MCHC 32 % (32-34) 12/30/20 04:00 RDW 17.3 % (13.2-15.2) H 12/30/20 04:00 Plt Count 439 K/mm3 (140-440) 12/30/20 04:00 Lymph % (Auto) 9.2 % (13.4-35.0) L 12/30/20 04:00 Crowley % (Auto) 2.9 % (0.0-7.3) 12/30/20 04:00 Eos % (Auto) 0.6 % (0.0-4.3) 12/30/20 04:00 Baso % (Auto) 0.3 % (0.0-1.8) 12/30/20 04:00 Lymph # (Auto) 1.4 K/mm3 (1.2-5.4) 12/30/20 04:00 Crowley # (Auto) 0.4 K/mm3 (0.0-0.8) 12/30/20 04:00 Eos # (Auto) 0.1 K/mm3 (0.0-0.4) 12/30/20 04:00 Baso # (Auto) 0.0 K/mm3 (0.0-0.1) 12/30/20 04:00 Add Manual Diff Complete 12/29/20 04:00 Total Counted 100 12/29/20 04:00 Seg Neutrophils % 87.0 % (40.0-70.0) H 12/30/20 04:00 Seg Neuts % (Manual) 83.0 % (40.0-70.0) H 12/29/20 04:00 Band Neutrophils % 2.0 % 12/28/20 05:45 Lymphocytes % (Manual) 10.0 % (13.4-35.0) L 12/29/20 04:00 Monocytes % (Manual) 4.0 % (0.0-7.3) 12/29/20 04:00 Eosinophils % (Manual) 2.0 % (0.0-4.3) 12/28/20 05:45 Metamyelocytes % 3.0 % 12/29/20 04:00 Myelocytes % 3.0 % 12/28/20 05:45 Nucleated RBC % 2.0 % (0.0-0.9) H 12/29/20 04:00 Seg Neutrophils # 13.1 K/mm3 (1.8-7.7) H 12/30/20 04:00 Seg Neutrophils # Man 14.9 K/mm3 (1.8-7.7) H 12/29/20 04:00 Band Neutrophils # 0.0 K/mm3 12/29/20 04:00 Lymphocytes # (Manual) 1.8 K/mm3 (1.2-5.4) 12/29/20 04:00 Abs React Lymphs (Man) 0.0 K/mm3 12/29/20 04:00 Monocytes # (Manual) 0.7 K/mm3 (0.0-0.8) 12/29/20 04:00 Eosinophils # (Manual) 0.0 K/mm3 (0.0-0.4) 12/29/20 04:00 Basophils # (Manual) 0.0 K/mm3 (0.0-0.1) 12/29/20 04:00 Metamyelocytes # 0.5 K/mm3 12/29/20 04:00 Myelocytes # 0.0 K/mm3 12/29/20 04:00 Promyelocytes # 0.0 K/mm3 12/29/20 04:00 Blast Cells # 0.0 K/mm3 12/29/20 04:00 WBC Morphology Not Reportable 12/29/20 04:00 Hypersegmented Neuts Not Reportable 12/29/20 04:00 Hyposegmented Neuts Not Reportable 12/29/20 04:00 Hypogranular Neuts Not Reportable 12/29/20 04:00 Smudge Cells Not Reportable 12/29/20 04:00 Toxic Granulation Not Reportable 12/29/20 04:00 Toxic Vacuolation Not Reportable 12/29/20 04:00 Dohle Bodies Not Reportable 12/29/20 04:00 Pelger-Huet Anomaly Not Reportable 12/29/20 04:00 Tony Rods Not Reportable 12/29/20 04:00 Platelet Estimate Consistent w auto 12/29/20 04:00 Clumped Platelets Not Reportable 12/29/20 04:00 Plt Clumps, EDTA Not Reportable 12/29/20 04:00 Large Platelets Not Reportable 12/29/20 04:00 Giant Platelets Not Reportable 12/29/20 04:00 Platelet Satelliting Not Reportable 12/29/20 04:00 Plt Morphology Comment Not Reportable 12/29/20 04:00 RBC Morphology Not Reportable 12/29/20 04:00 Dimorphic RBCs Not Reportable 12/29/20 04:00 Polychromasia Few 12/29/20 04:00 Hypochromasia Not Reportable 12/29/20 04:00 Poikilocytosis Not Reportable 12/29/20 04:00 Anisocytosis 1+ 12/29/20 04:00 Microcytosis Not Reportable 12/29/20 04:00 Macrocytosis Not Reportable 12/29/20 04:00 Spherocytes Not Reportable 12/29/20 04:00 Pappenheimer Bodies Not Reportable 12/29/20 04:00 Sickle Cells Not Reportable 12/29/20 04:00 Target Cells Not Reportable 12/29/20 04:00 Tear Drop Cells Not Reportable 12/29/20 04:00 Ovalocytes Not Reportable 12/29/20 04:00 Stomatocytes Rare 12/27/20 14:09 Helmet Cells Not Reportable 12/29/20 04:00 Cabrera-Spiro Bodies Not Reportable 12/29/20 04:00 Canyon Rings Not Reportable 12/29/20 04:00 [place] Cells Not Reportable 12/29/20 04:00 Bite Cells Not Reportable 12/29/20 04:00 Crenated Cell Not Reportable 12/29/20 04:00 Elliptocytes Not Reportable 12/29/20 04:00 Acanthocytes (Spur) Not Reportable 12/29/20 04:00 Rouleaux Not Reportable 12/29/20 04:00 Hemoglobin C Crystals Not Reportable 12/29/20 04:00 Schistocytes Not Reportable 12/29/20 04:00 Malaria parasites Not Reportable 12/29/20 04:00 Yovani Bodies Not Reportable 12/29/20 04:00 Hem Pathologist Commnt No 12/29/20 04:00 D-Dimer 926.11 ng/mlDDU (0-234) H 11/26/20 06:04 ABG pH 7.332 (7.320-7.450) 12/30/20 04:14 POC ABG pCO2 69.3 mmHg (32.0-48.0) H 12/30/20 04:14 ABG pCO2 81.3 mm Hg 12/08/20 04:12 POC ABG pO2 61.3 mmHg (83-108) L 12/30/20 04:14 ABG pO2 69.7 mm Hg (80.0-90.0) L 12/08/20 04:12 POC ABG HCO3 36 12/30/20 04:14 ABG HCO3 50.1 mmol/L (20.0-26.0) H 12/08/20 04:12 ABG O2 Saturation 89.6 (0-100) 12/30/20 04:14 ABG O2 Content 13.0 (0.0-44) 12/07/20 05:20 POC ABG Base Excess 8.5 12/30/20 04:14 ABG Base Excess 21.6 mmol/L (-2.0-3.0) H 12/08/20 04:12 ABG Hemoglobin 9.1 (12.0-17.5) L 12/30/20 04:14 ABG Oxyhemoglobin 88.0 (94-98) L 12/30/20 04:14 ABG Carboxyhemoglobin 2.0 % (0.0-5.0) 12/08/20 04:12 ABG Methemoglobin 0 (0.0-1.5) 12/30/20 04:14 ABG Sodium 139.4 mmol/L (136.0-145.0) 12/30/20 04:14 ABG Potassium 3.8 mmol/L (3.40-4.50) 12/30/20 04:14 ABG Chloride 103.0 mmol/L (98-107) 12/30/20 04:14 ABG Glucose 159 mg/dL (65-95) H 12/30/20 04:14 Oxyhemoglobin 93.2 % (95.0-99.0) L 12/08/20 04:12 Carboxyhemoglobin 1.8 (0.5-1.5) H 12/30/20 04:14 FiO2 90 12/23/20 05:19 FiO2 % 80 12/30/20 04:14 Sodium 141 mmol/L (137-145) 12/30/20 04:00 Potassium 3.9 mmol/L (3.6-5.0) 12/30/20 04:00 Chloride 102.2 mmol/L (98-107) 12/30/20 04:00 Carbon Dioxide 37 mmol/L (22-30) H 12/30/20 04:00 Anion Gap 6 mmol/L 12/30/20 04:00 BUN 16 mg/dL (9-20) 12/30/20 04:00 Creatinine 0.3 mg/dL (0.8-1.3) L 12/30/20 04:00 Estimated GFR > 60 ml/min 12/30/20 04:00 BUN/Creatinine Ratio 53 % 12/30/20 04:00 Glucose 156 mg/dL (75-100) H 12/30/20 04:00 POC Glucose 141 mg/dL (70-105) H 12/30/20 05:25 Hemoglobin A1c 11.7 % (4-6) H 11/16/20 05:29 Lactic Acid 2.60 mmol/L (0.7-2.0) H* 11/16/20 05:29 Calcium 7.6 mg/dL (8.4-10.2) L 12/30/20 04:00 Phosphorus 2.60 mg/dL (2.5-4.5) 12/17/20 17:25 Magnesium 1.60 mg/dL (1.7-2.3) L 12/17/20 17:25 Ferritin 778.8 ng/mL (30.0-300.0) H 11/26/20 04:00 Total Bilirubin 0.40 mg/dL (0.1-1.2) 12/30/20 04:00 AST 23 units/L (5-40) 12/30/20 04:00 ALT 21 units/L (7-56) 12/30/20 04:00 Alkaline Phosphatase 104 units/L (35-129) 12/30/20 04:00 Lactate Dehydrogenase 288 units/L (91-180) H 11/26/20 04:00 Total Creatine Kinase 47 units/L (55-170) L 12/17/20 17:25 CK-MB (CK-2) 1.8 ng/mL (0.0-4.0) 12/17/20 17:25 CK-MB (CK-2) Rel Index 3.8 (0-4) 12/17/20 17:25 Troponin T < 0.010 ng/mL (0.00-0.029) 12/11/20 06:30 C-Reactive Protein 1.40 mg/dL (0.00-1.30) H 11/26/20 04:00 NT-Pro-B Natriuret Pep 107.2 pg/mL (0-900) 11/17/20 10:21 Total Protein 6.0 g/dL (6.3-8.2) L 12/30/20 04:00 Albumin 1.4 g/dL (3.9-5) L 12/30/20 04:00 Albumin/Globulin Ratio 0.3 % 12/30/20 04:00 Triglycerides 284 mg/dL (2-149) H 12/29/20 04:00 Procalcitonin 0.16 ng/mL (<0.15) 12/12/20 05:16 Arterial Blood Glucose 159 mg/dL (65-95) H 12/30/20 04:14 Arterial Blood Ionized Calcium 4.4 mg/dL (4.6-5.3) L 12/30/20 04:14 Urine Color Yellow (Yellow) 12/21/20 Unknown Urine Turbidity Cloudy (Clear) 12/21/20 Unknown Urine pH 6.0 (5.0-7.0) 12/21/20 Unknown Ur Specific [place] 1.013 (1.003-1.030) 12/21/20 Unknown Urine Protein <15 mg/dl mg/dL (Negative) 12/21/20 Unknown Urine Glucose (UA) Neg mg/dL (Negative) 12/21/20 Unknown Urine Ketones Neg mg/dL (Negative) 12/21/20 Unknown Urine Blood Neg (Negative) 12/21/20 Unknown Urine Nitrite Neg (Negative) 12/21/20 Unknown Urine Bilirubin Neg (Negative) 12/21/20 Unknown Urine Urobilinogen < 2.0 mg/dL (<2.0) 12/21/20 Unknown Ur Leukocyte Esterase Mod (Negative) 12/21/20 Unknown Urine WBC (Auto) 172.0 /HPF (0.0-6.0) H 12/21/20 Unknown Urine RBC (Auto) > 182.0 /HPF (0.0-6.0) 12/21/20 Unknown U Epithel Cells (Auto) 3.0 /HPF (0-13.0) 12/21/20 Unknown Urine Bacteria (Auto) 2+ /HPF (Negative) 12/21/20 Unknown Ur Renal Epithelial Cell <1 /LPF 12/21/20 Unknown Urine Mucus 2+ /HPF 12/21/20 Unknown Urine Yeast (Budding) 3+ /HPF 12/21/20 Unknown Vancomycin Trough 16.9 ug/mL (5.0-20.0) 12/19/20 15:46 Coronavirus (PCR) Positive (Negative) A 12/13/20 10:00 Hepatitis A IgM Ab Non-reactive (NonReactive) 12/17/20 21:40 Hep Bs Antigen Non-reactive (Negative) 12/17/20 21:40 Hep B Core IgM Ab Non-reactive (NonReactive) 12/17/20 21:40 Hepatitis C Antibody Non-reactive (NonReactive) 12/17/20 21:40 HIV 1&2 Antibody Rapid Non react (Non React) 12/17/20 21:40 HIV P24 Antigen Non react (Non React) 12/17/20 21:40 - Diagnostic Impressions Diagnostic Impressions: Echocardiogram 11/16/20 10:34 Transthoracic Echocardiogram Indication: Shortness of breath-COVID BP: 108/77 HR: 92 Conclusions *Global left ventricular systolic function is normal. *The estimated ejection fraction is 60-65%. *Mild to moderate concentric left ventricular hypertrophy is observed. *There is trace of mitral regurgitation. *There is mild to moderate tricuspid regurgitation. *There is evidence of mild pulmonary hypertension. *The right ventricular systolic pressure is calculated at 31 mmHg. Findings Left Ventricle: The left ventricular chamber size is normal. Mild to moderate concentric left ventricular hypertrophy is observed. Global left ventricular systolic function is normal. The estimated ejection fraction is 60-65%. Left Atrium: The left atrial chamber size is normal. Right Ventricle: The right ventricular cavity size is normal. The right ventricular global systolic function is normal. Right Atrium: The right atrial cavity size is normal. Aortic Valve: The aortic valve is trileaflet. There is no evidence of aortic regurgitation. There is no evidence of aortic stenosis. Mitral Valve: The mitral valve leaflets appear normal. There is trace of mitral regurgitation. There is no evidence of mitral stenosis. Tricuspid Valve: The tricuspid valve leaflets are normal. There is mild to moderate tricuspid regurgitation. The right ventricular systolic pressure is calculated at 31 mmHg. There is evidence of mild pulmonary hypertension. Pulmonic Valve: There is trace pulmonic regurgitation. Pericardium: There is no pericardial effusion. Aorta: There is no dilatation of the ascending aorta. There is no dilatation of the aortic root. Venous: The inferior vena cava appears normal in size. Measurements Chambers 2D Name Value Normal Range IVSd (2D) 0.81 cm (0.6 - 1.1) LVPWd (2D) 0.79 cm (0.6 - 1.1) LVIDd (2D) 4.22 cm (3.7 - 5.6) LVIDs (2D) 3.1 cm (2 - 3.8) LV FS (2D) 26.71 % - EF Teichholz (2D) 52.55 % - Ao root diameter (2D) 3.34 cm (2 - 3.7) Volumes/Mass Name Value Normal Range LA ESV SP 4CH (A/L) 10.87 ml - LA ESV SP 2CH (A/L) 18.74 ml - LA ESV BP (A/L) 16.38 ml - LA ESV BP (A/L) index 8.62 ml/m2 - LA ESV SP 4CH (MOD) 10.32 ml - LA ESV SP 2CH (MOD) 17.66 ml - LA ESV BP (MOD) 15.12 ml - LA ESV BP (MOD) index 7.96 ml/m2 - Diastolic/Systolic Function Name Value Normal Range MV E-wave Vmax 0.76 m/sec - MV deceleration time 133.63 msec - MV A-wave Vmax 1.1 m/sec - MV E:A ratio 0.69 ratio - Aortic Valve Name Value Normal Range AV Vmax 1.44 m/sec - AV VTI 22.94 cm - AV peak gradient 8.33 mmHg - AV mean gradient 4.73 mmHg - LVOT diameter 2.2 cm - LVOT Vmax 1.04 m/sec - LVOT VTI 18.88 cm - LVOT peak gradient 4.34 mmHg - LVOT mean gradient 2.31 mmHg - SV LVOT 72.05 ml - EVANGELISTA (continuity Vmax) 2.75 cm2 - EVANGELISTA (continuity VTI) 3.14 cm2 - Tricuspid Valve Name Value Normal Range TR Vmax 2.64 m/sec - TR peak gradient 28 mmHg - RAP 3 mmHg - RVSP 31 mmHg - Gupta/IV: Voiding Method Indwelling Catheter IV Catheter Type [Left Peripheral IV Antecubital] Active Medications - Current Medications Current Medications: Generic Name Dose Route Start Last Admin Trade Name Freq PRN Reason Stop Dose Admin Acetaminophen 650 mg 11/15/20 23:55 12/25/20 07:24 Acetaminophen 325 Mg Tab PO 650 mg Q4H PRN Administration Pain MILD(1-3)/Fever >100.5/BUTTS Lipase/Protease/Amylase 1 each 11/23/20 11:53 12/05/20 23:45 Lipase 10,500/Protease 25,000/Amylase 43,750 (Units) Dr Slater FEEDTUBE 1 each PRN PRN Administration For Clogged Feeding Tube Dextrose 25 ml 12/10/20 05:21 12/28/20 12:18 Dextrose 50% In Water (25gm) 50 Ml Syringe IV 10 ml Q30MIN PRN Administration Hypoglycemia Protocol Docusate Sodium 100 mg 12/23/20 10:00 12/30/20 10:08 Docusate Sodium 100 Mg/10 Ml Oral Liqd PO 100 mg BID RAEANN Administration Enoxaparin Sodium 40 mg 12/03/20 22:00 12/29/20 21:09 Enoxaparin 40 Mg/0.4 Ml Inj SUB-Q 40 mg QDAY@2200 RAEANN Administration Famotidine 20 mg 12/16/20 10:00 12/30/20 10:08 Famotidine 20 Mg Tab PO 20 mg BID RAEANN Administration Hydrophilic Ointment 1 applic 11/21/20 21:53 11/30/20 21:33 Lip Therapy Vaseline TP 1 applic Q2HR PRN Administration Dry Lips Midazolam HCl 100 mg/ Sodium 100 mls @ 2 mls/hr 11/21/20 22:00 12/29/20 11:50 Chloride IV 5 mg/hr TITR RAEANN 5 mls/hr Administration Protocol 2 MG/HR Propofol 1,000 mg in 100 mls @ 2.175 mls/hr 11/27/20 12:00 12/30/20 01:44 Diprivan 10 Mg/Ml IV 15 mcg/kg/min TITR RAEANN 6.525 mls/hr Administration Protocol 5 MCG/KG/MIN Dexmedetomidine HCl 400 mcg/ 104 mls @ 4.441 mls/hr 12/10/20 13:00 12/30/20 09:17 Sodium Chloride IV 0.7 mcg/kg/hr TITRATE RAEANN 15.543 mls/hr Administration Protocol 0.2 MCG/KG/HR Fentanyl Citrate 2,000 mcg in 100 mls @ 3.9 mls/hr 12/18/20 19:00 12/30/20 10:08 Fentanyl Drip Premix IV 4 mcg/kg/hr TITR RAEANN 15.6 mls/hr Administration Protocol 1 MCG/KG/HR Vasopressin 20 unit/ Sodium 101 mls @ 9.09 mls/hr 12/24/20 18:30 Chloride IV TITR RAEANN Protocol 0.03 UNITS/MIN Piperacillin Sod/Tazobactam Sod 4.5 gm in 100 mls @ 200 mls/hr 12/25/20 12:00 12/30/20 05:56 Zosyn/Ns 4.5gm/100ml IV 200 mls/hr Q6H RAEANN Administration Protocol Norepinephrine 8 mg/ Sodium 250 mls @ 3.75 mls/hr 12/25/20 22:00 12/30/20 05:44 Chloride IV 20 mcg/min TITR RAEANN 37.5 mls/hr Administration Protocol 2 MCG/MIN Insulin Glargine 8 units 12/17/20 13:52 12/29/20 21:09 Insulin Glargine 100 Units/Ml SUB-Q 8 units QHS RAEANN Administration Insulin Human Lispro 0 unit 11/22/20 06:00 12/30/20 06:18 Insulin Lispro 100 Unit/Ml SUB-Q Not Given Q6HR [facility] Protocol Metoclopramide HCl 10 mg 11/15/20 23:55 Metoclopramide 10 Mg/2 Ml Inj IV Q6H PRN Nausea And Vomiting Multi-Ingred Cream/Lotion/Oil/Oint 1 applic 11/21/20 21:53 Mineral Oil/Petrolatum, White Ophth Oint 3.5 Gm OU Q4HR PRN Dry Eye(s) Ondansetron HCl 4 mg 11/15/20 23:55 Ondansetron 4 Mg/2 Ml Inj IV Q8H PRN Nausea And Vomiting Polyethylene Glycol 17 gm 12/23/20 10:00 12/30/20 10:08 Polyethylene Glycol 3350 17 Gm Powder PO 17 gm QDAY RAEANN Administration Senna/Docusate Sodium 2 tab 12/21/20 14:00 12/30/20 05:56 Sennosides/Docusate Sodium 8.6/50 Mg Tab PO 2 tab Q8HR RAEANN Administration Simple Syrup 15 ml 11/23/20 11:53 Simple Syrup 15 Ml FEEDTUBE PRN PRN Hypoglycemia Simple Syrup 30 ml 11/23/20 11:53 Simple Syrup 15 Ml FEEDTUBE PRN PRN Hypoglycemia Sodium Bicarbonate 325 mg 11/23/20 11:53 12/05/20 23:46 Sodium Bicarbonate 325 Mg Tab FEEDTUBE 325 mg PRN PRN Administration For Clogged Feeding Tube Sodium Chloride 10 ml 11/16/20 10:00 12/29/20 21:09 Sodium Chloride 0.9% 10 Ml Flush Syringe IV 10 ml BID RAEANN Administration Sodium Chloride 10 ml 11/15/20 23:55 12/03/20 00:21 Sodium Chloride 0.9% 10 Ml Flush Syringe IV 10 ml PRN PRN Administration LINE FLUSH Nutrition/Malnutrition Assess - Dietary Evaluation Nutrition/Malnutrition Findings: Nutrition Notes Start: 11/20/20 12:03 Freq: Status: Active Protocol: Document 12/25/20 11:32 AL (Rec: 12/25/20 11:37 AL [id number]) Co-Sign 12/25/20 11:32 CW Nutrition Notes Initial or Follow up Reassessment Current Diagnosis Diabetes,Sepsis,Respiratory Failure Other Pertinent Diagnosis Bilat pneu, COVID-19 (+) Current Diet Glucerna 1.2 at 60 ml/hr Labs/Tests Reviewed Pertinent Medications Levophed in NS Propofol at 8.7 ml/hr (229 kcal) Lasix Height 5 ft 6 in Weight 83.9 kg Usual Body Weight 80.5 kg [place] Body Weight (kg) 64.54 BMI 29.8 Weight change and time frame Wt change 2.8 kg (3%) noted. Pt has edema. Weight Status Overweight Subjective/Other Information F/U for TF tolerance and last BM. Per RN, pt had last BM yesterday 12/24. Pt tolerates TF at 60 ml/hr (goal rate). Percent of energy/protein needs met: 100%/100% Burn Absent Trauma Absent GI Symptoms None Difficulty In Swallowing,Chewing Current % PO Negligible Minimum of two criteria Yes Interpretation of Weight Loss (severe) >2% in 1 week Fluid Accumulation Moderate to Severe (severe) #3 Nutrition Diagnosis Inadequate oral intake Diagnosis Progress(for reassessment Continues documentation) #2 Nutrition Diagnosis Malnutrition As Evidenced by Signs and Symptoms Pt meeting 100%/100% of estimated energy/protein needs via TF for >7 days Diagnosis Progress(for reassessment Improved documentation) #1 Nutrition Diagnosis Unintended weight loss Diagnosis Progress(for reassessment Continues documentation) Is patient on ventilator? Yes Is Patient Ambulatory and/or Out of Bed No REE-([facility]-confined to bed) 1920.756 Kcal/Kg value to use for calculation 22 Approximate Energy Requirements Using 1846 kcal/Kg Calculation Used for Recommendations [facility] Additional Notes Protein: 87-145 g/day (1.2-2g/ kg) Fluid: 1ml/kcal or per MD Nutrition Intervention Change Diet Order: Continue TF Nutrition Support: Glucerna 1.2 at 65 ml/hr. Flush 125 ml q4h Kcal 1,872 Protein (gm) 93 Fluid (mL) 1,255 Goal #1 Meet at least 75% of energy and protein needs via TF Goal #2 TF tolerance Anticipated Discharge Needs: Unable to determine at this time Follow-Up By: 01/01/21 Additional Comments F/U for TF tolerance.
[2020-12-30] MEDS: MIDAZOLAM 100 MG in SODIUM CHLORIDE 0.9% 80 ML IV SCH (12:22)
--- NOTE | 2020-12-30 12:34 | Progress Note ---
Assessment and Plan 59 y/o male with acute respiratory failure, abnormal CXR and abnormal lab studies. 12/30/20: Continue supportive measures. Continue to wean FiO2 for sats >88%, but will go slowly given his tenuous course. Chest tubes to suction. Explained to nursing, that sub q air will be present but for now, nothing to do unless oxygen saturation drops rapidly, then would need stat CXR to evaluate for worsening PTX or tension. 12/29/20: Continue supporitve measures. Continue sedation and vasopressor support. Chest tubes will remain until patient is extubated if able to do so. Prognosis is very very guarded. 12/27/20: Continue supportive measures. Continue sedation and vasopressor support. Chest tubes remain until extubated if able to do so. Very very guarded prognosis. 12/26/20: Very very poor prognosis given prolong time of hypoxemia during the events from and continued hypoxemia despite 100%. PTX's and recurrent PTX's have been very common with this current wave of COVID 19 so not entirely unexpected. Appreciate surgery help with second chest tube. Will Strip tubes again tomorrow morning. COntinue sedation and vasopressor support. Very very poor prognosis. Please do not give any further lasix, as the changes seen are not edema related. 12/24/20: If patient spikes again in the next 24 hours, please reculture urine and blood. In regards to cuff, as long as patient is not losing volumes, no indication to change tube out as of yet. Will continue to monitor. Continue abx as ID recs. Attempt to wean back down again but unfortunately this has been an ongoing issue for this patient. Continue pressors to help achieve adequate sedation for vent management. Prognosis remains guarded. 12/23/20: Continue current level of sedation. Wean parameters as listed below. appreciate ID recs and help. 12/22/20: Continue current level of sedation. Ok to wean FiO2 for sats >88% and PaO2>55mmHg. Follow up ID recs in regards to abx therapy. Prognosis unfortunately still remains guarded. 12/21/20: Back up to 100%. Peep is the same chest tubes intact. Long discussion on rounds, will restart Diprovan to obtain adequate sedation (RASS of -4). Ok to titrate pressors to achieve adequate sedation if blood pressure is compromised by sedatives. Prognosis remains guarded. Awaiting speciation of other cultures. 12/18/20: Still on 75% and 18 of PEEP. Follow up cultures, Blood pending, urine has not resulted yet. Had another temp at 20:00 last night. CXR looks more lik e pulmonary edema but not in a position to diurese at this time as he occasionally requires vasopressor support given the amount of sedation needed to achieve a RASS of 4. If he continues to spike, would consider hospital acquired coverage of abx therapy. Prognosis remains guarded. 12/17/20: Back down to 75%. Febrile last night, if and when spikes again today, please obtain blood cultures times 2 and urine. Will go ahead and order repeat CXR now. Prognosis still remains guarded. 12/16/20: Back up to 100%. Once stabilized will attempt to wean back down. ABG in the am and may need to consider repeat ABG later this afternoon pending clinical state. Unable to prone given bilateral chest tubes. Prognosis remains guarded to poor. 12/15/20: Tolerating weaning from yesterday. RT to attempt to wean some more today. Kidney function remains unchanged. Guarded prognosis. 12/14/20: Unable to wean FiO2 today. Continue supportive measures. Great that his kidney function has maintained but given the amount of oxygen he continues to require, his chances of recovery continue to decrease. Family aware and will up date them as needed. Very very guarded prognosis. 12/13/20: WIll start Weaning FiO2 again tomorrow morning of PaO2 remains this good. Continue all other supportive measures. Guarded prognosis. Monitor renal function closely. 12/12/20: Long discussion with brother at door. Patient remains full code which is not unreasonable but family is realistic about outcome being poor. Will continue all supportive measures. IF clinical state worsens, will ask family to come back to see patient. Guarded Prognosis. 12/11/20: Will attempt to wean Diprovan off and increase precedex. Triglycerides were ok. IF we have to support with pressors we will but I have asked nursing to please be detailed in their checkouts as to why they did certain things with the continuous drips. Continue supportive measures. Brother is going to try to come and see him from [place] 12/10/20: No acute events overnight. Patient has had waxing and waning of the amount of oxygen he has required over the last 24-72 hours. I have a bad feeling that he is on the brink of cardiac arrest and this could happen at any moment. I am going to reach out to the brother today to explain to him my concerns. Patient is a full code. Very very guarded prognosis. 12/09/20: Repeat ABG later today. Wean FiO2 for sats >88%. Repeat CXR as well. With BP dropping could be relative adrenal insufficiency, will watch for now, however if pressor requirement increases would consider stress dose steroids and maybe volume replacement. Follow up cultures. Guarded prognosis. 12/08/20: Increase TV to 425. Drop FiO2 to 65% and wean for sats >88%. COntinue chest tubes. Change steroids to 20q12. 12/07/20: CXR is stable, no indication for another chest tube at this time. Will repeat ABG in 1 hour post change to 70% and wean accordingly. Dropping steroids to 20q8. Guarded prognosis. Same weaning parameters apply today as of 12/04/20 12/04/20: Continue to wean steroids to off. Continue to wean FiO2 for sats >88%. Keep PEEP at current level, would not feel comfortable weaning PEEP until FiO2 at 35-40%. Continue chest tubes to suction. PaO2 of >55, pH of >7.2 and sats >88% are acceptable. : Dropped steroids down to 40q8 and will start to wean from there. Continue to slowly wean FiO2 first, keep PEEP at current level. Spoke with Kehinde, please see my event note, who is the biological brother. He had no questions but thanked us for our care. Prognosis remains very very guarded. PaO2 of 55 and pH of >7.2 and sats of >88% are all acceptable. 12/02/20: Wean FiO2 for sats >88% and PaO2 >55. Unable to prone currently secondary to bilateral chest tubes. COntinue high dose steroids. CM To figure out who is the immediate next of kin that can make decisions and then we will discuss the current clinical situation with them. 12/01/20: Continue PEEP and FiO2 elevated to keep sats >88% and PaO2 >55. Small lung volumes and high PEEP. very very guarded prognosis. 11/30/20: Worsening hypoxemia. Chest tubes stable. Likely just worsening disease. Unable to prone now. Increase PEEP to 18 and FiO2 back up to 100. Continue 3 sedatives for RASS of -2. Obtain 12 lead to look at T waves as K was only 4.6 on yesterday. Guarded, guarded prognosis 11/29/20: Second chest tube in on yesterday. CXR is stable. ABG unchanged. Will likely increase PEEP now that chest tubes are in. No further paralytics. Still making good urine. Prognosis remains guarded. Will check chemistry to assess Potassium levels given peaked t's seen on monitor. 11/28/20: Second chest tube today. Once chest tube in, will likely increase PEEP to 18 and repeat gas about 2 hours after this. Continue paralytic today. No proning now that patient will have bilateral chest tubes. VEry guarded prognosis. 11/27/20: Spoke with surgery who have agreed to evaluate and placed chest tube on either right or left side pending CXR reading. Will monitor for 36-48 hours and if no resolution, will need chest tube placed on opposite side as well. Once placed, will likely paralyze again but hold on proning for now. Guarded prognosis. 11/26/20: Paralytics are off. Continue current level of sedation. Will prone for 12 hours today and repeat ABG in the am. Continue lung protective strategy. Guarded prognosis. 11/25/20: Prone again to 16 hours, will prone at 12-12:30. Continue paralytics for 24 more hours. Discussed the idea of permissive hypercapnea again today and as long as pH is above 7.2 no changes should be made to TV and or RR without d iscussing with physician. Continue to monitor urine output, guarded prognosis. Hold on lasix therapy today. 11/24/20: Prone again today. Will try 48 hours of paralyzing the patient to see if this will help with oxygenation. Will speak with RT's about permissive hypercapnea and that pH's of 7.2 and greater are ok. Continue high doses steroids. Prognosis is still very very guarded. If not improvement with paralytics, will attempt transfer. 11/23/20: Prone again today for 12 hours. Continue High Dose steroids. Hold on lasix given marginal BP's. Prognosis is very very guarded to poor. Will continue all supportive measures. If not able to wean from 100%, will attempt transfer for ECMO. 1. Pulm- Agree with concern for covid. Agree with empiric abx but procal is only mildly elevated. Await cultures. Continue bipap therapy for now but will need to monitor closely. [facility] has ordered CTA, but I spoke with pharmacy and we will empirically treat with BID lovenox therapy. COntinue empiric steroid therapy for COVID until studies back. Not sure that he will be able to prone on bipap therapy. Monitor volume status and run as dry as possible. 2. Renal-normal function but all electrolytes abnormal. HYponatremia and Hypochloremia volume up vs volume down. Sent BNP. Would suggest obtaning echo as well. Not sure what to make of elevated lactate unless that is from increased work of breathing or damage to other tissue unknown. May need to check LFT's and Coags as well. 3. Guarded Prognosis. CCT 31 minutes. Subjective Date of service: 12/30/20 Principal diagnosis: COVID-19 Interval history: No acute events. Down to 80% FiO2. Sats stable. Still making urine but output has dropped off. On rounds learned that there is a daughter in [place] who is now coming to visit. Remainder is negative. Objective Vital Signs - 12hr 12/30/20 12/30/20 12/30/20 00:30 00:45 01:00 Temperature Pulse Rate 68 68 68 Pulse Rate [ From Monitor] Respiratory 30 H 30 H 30 H Rate Blood Pressure 115/67 115/66 120/70 O2 Sat by Pulse 99 99 99 Oximetry 12/30/20 12/30/20 12/30/20 01:15 01:30 01:45 Temperature Pulse Rate 69 70 69 Pulse Rate [ From Monitor] Respiratory 30 H 30 H 30 H Rate Blood Pressure 114/70 110/62 119/68 O2 Sat by Pulse 99 98 98 Oximetry 12/30/20 12/30/20 12/30/20 02:00 02:15 02:30 Temperature Pulse Rate 67 70 67 Pulse Rate [ From Monitor] Respiratory 30 H 30 H 30 H Rate Blood Pressure 118/68 115/67 117/70 O2 Sat by Pulse 98 98 98 Oximetry 12/30/20 12/30/20 12/30/20 02:45 03:00 03:15 Temperature Pulse Rate 68 67 66 Pulse Rate [ From Monitor] Respiratory 30 H 30 H 30 H Rate Blood Pressure 115/68 118/70 118/65 O2 Sat by Pulse 99 98 99 Oximetry 12/30/20 12/30/20 12/30/20 03:30 03:45 04:00 Temperature Pulse Rate 68 69 69 Pulse Rate [ 69 From Monitor] Respiratory 30 H 30 H 30 H Rate Blood Pressure 121/72 119/71 116/69 O2 Sat by Pulse 99 99 99 Oximetry 12/30/20 12/30/20 12/30/20 04:15 04:30 04:42 Temperature Pulse Rate 69 69 71 Pulse Rate [ From Monitor] Respiratory 30 H 30 H Rate Blood Pressure 108/66 112/65 112/65 O2 Sat by Pulse 98 98 98 Oximetry 12/30/20 12/30/20 12/30/20 04:45 05:00 05:15 Temperature Pulse Rate 70 71 71 Pulse Rate [ From Monitor] Respiratory 30 H 30 H 30 H Rate Blood Pressure 112/66 115/67 115/69 O2 Sat by Pulse 98 99 99 Oximetry 12/30/20 12/30/20 12/30/20 05:30 05:45 06:00 Temperature Pulse Rate 69 70 67 Pulse Rate [ From Monitor] Respiratory 30 H 30 H 30 H Rate Blood Pressure 116/67 112/66 120/68 O2 Sat by Pulse 98 99 98 Oximetry 12/30/20 12/30/20 12/30/20 06:15 06:30 06:45 Temperature Pulse Rate 67 67 67 Pulse Rate [ From Monitor] Respiratory 30 H 30 H 30 H Rate Blood Pressure 119/69 111/62 114/68 O2 Sat by Pulse 98 98 98 Oximetry 12/30/20 12/30/20 12/30/20 07:00 07:15 07:26 Temperature Pulse Rate 67 70 68 Pulse Rate [ From Monitor] Respiratory 30 H 30 H Rate Blood Pressure 116/64 109/63 109/63 O2 Sat by Pulse 98 98 97 Oximetry 12/30/20 12/30/20 12/30/20 07:31 07:45 08:00 Temperature 97.4 F L Pulse Rate 69 68 66 Pulse Rate [ 66 From Monitor] Respiratory 30 H 30 H 30 H Rate Blood Pressure 104/56 112/61 107/66 O2 Sat by Pulse 97 97 97 Oximetry 12/30/20 12/30/20 12/30/20 08:15 08:30 08:45 Temperature Pulse Rate 67 68 68 Pulse Rate [ From Monitor] Respiratory 29 H 30 H 30 H Rate Blood Pressure 110/67 112/66 113/67 O2 Sat by Pulse 97 98 98 Oximetry 12/30/20 12/30/20 12/30/20 09:00 09:15 09:30 Temperature Pulse Rate 67 68 69 Pulse Rate [ From Monitor] Respiratory 29 H 30 H 30 H Rate Blood Pressure 114/68 107/64 109/66 O2 Sat by Pulse 98 98 98 Oximetry 12/30/20 12/30/20 12/30/20 09:45 10:00 10:15 Temperature Pulse Rate 69 69 68 Pulse Rate [ From Monitor] Respiratory 30 H 29 H 30 H Rate Blood Pressure 113/67 118/68 112/65 O2 Sat by Pulse 98 99 98 Oximetry 12/30/20 12/30/20 12/30/20 10:30 10:45 11:00 Temperature Pulse Rate 68 67 69 Pulse Rate [ From Monitor] Respiratory 29 H 29 H 30 H Rate Blood Pressure 114/69 116/69 118/64 O2 Sat by Pulse 98 98 97 Oximetry 12/30/20 12/30/20 12/30/20 11:15 11:30 11:45 Temperature Pulse Rate 68 69 69 Pulse Rate [ From Monitor] Respiratory 29 H 29 H 29 H Rate Blood Pressure 110/64 109/66 115/65 O2 Sat by Pulse 97 97 97 Oximetry 12/30/20 12/30/20 12/30/20 11:47 12:01 12:15 Temperature Pulse Rate 69 69 69 Pulse Rate [ From Monitor] Respiratory 30 H 29 H Rate Blood Pressure 115/65 114/57 110/65 O2 Sat by Pulse 98 97 97 Oximetry Constitutional: lethargic, comatose, other (on vent orally intubated) ENT: other (Now intubated) Effort: other (vent support ) Ascultation: Bilateral: diminished breath sounds, rales, rhonchi, other (coarse BS bilaterally) Percussion: Bilateral: not dull Cardiovascular: regular rate and rhythm (tachy ) Gastrointestinal: soft, non-tender, non-distended Integumentary: normal Extremities: no cyanosis, no edema, pink and warm Neurologic: other (sedated) Psychiatric: other (sedated) CBC and BMP: 12/30/20 04:00 12/30/20 04:00 ABG, PT/INR, D-dimer: ABG ABG pH 7.332 (7.320-7.450) 12/30/20 04:14 POC ABG pCO2 69.3 mmHg (32.0-48.0) H 12/30/20 04:14 ABG pCO2 81.3 mm Hg 12/08/20 04:12 POC ABG pO2 61.3 mmHg (83-108) L 12/30/20 04:14 ABG pO2 69.7 mm Hg (80.0-90.0) L 12/08/20 04:12 POC ABG HCO3 36 12/30/20 04:14 ABG O2 Saturation 89.6 (0-100) 12/30/20 04:14 PT/INR, D-dimer D-Dimer 926.11 ng/mlDDU (0-234) H 11/26/20 06:04 Abnormal lab findings: Abnormal Labs 11/15/20 11/15/20 11/15/20 10:39 10:39 10:39 WBC 14.3 H RBC 5.17 H Hgb Hct MCHC RDW Plt Count Lymph % (Auto) 7.8 L [place] % (Auto) 7.6 H Lymph # (Auto) 1.1 L [place] # (Auto) 1.1 H Baso # (Auto) Seg Neutrophils % 83.3 H Seg Neuts % (Manual) Lymphocytes % (Manual) Nucleated RBC % Seg Neutrophils # 11.9 H Seg Neutrophils # Man Lymphocytes # (Manual) D-Dimer ABG pH POC ABG pCO2 POC ABG pO2 ABG pO2 ABG HCO3 ABG O2 Saturation ABG Base Excess ABG Hemoglobin ABG Oxyhemoglobin ABG Sodium ABG Potassium ABG Chloride ABG Glucose Oxyhemoglobin Carboxyhemoglobin Sodium 128 L Potassium Chloride 96.0 L Carbon Dioxide BUN Creatinine 0.7 L Glucose 238 H POC Glucose Hemoglobin A1c Lactic Acid 4.10 H* Calcium 7.0 L Magnesium Ferritin Total Bilirubin 1.40 H AST 49 H ALT 70 H Alkaline Phosphatase Lactate Dehydrogenase 663 H Total Creatine Kinase C-Reactive Protein 19.80 H Total Protein Albumin 2.9 L Triglycerides Arterial Blood Glucose Arterial Blood Ionized Calcium Ur Specific [place] Urine WBC (Auto) Vancomycin Trough Coronavirus (PCR) 11/15/20 11/15/20 11/15/20 10:39 10:39 11:20 WBC RBC Hgb Hct MCHC RDW Plt Count Lymph % (Auto) [place] % (Auto) Lymph # (Auto) [place] # (Auto) Baso # (Auto) Seg Neutrophils % Seg Neuts % (Manual) Lymphocytes % (Manual) Nucleated RBC % Seg Neutrophils # Seg Neutrophils # Man Lymphocytes # (Manual) D-Dimer > 21878 H ABG pH POC ABG pCO2 29.9 L POC ABG pO2 137.3 H ABG pO2 ABG HCO3 ABG O2 Saturation ABG Base Excess ABG Hemoglobin ABG Oxyhemoglobin ABG Sodium 126.5 L ABG Potassium ABG Chloride ABG Glucose 248 H Oxyhemoglobin Carboxyhemoglobin Sodium Potassium Chloride Carbon Dioxide BUN Creatinine Glucose POC Glucose Hemoglobin A1c Lactic Acid Calcium Magnesium Ferritin 672.8 H Total Bilirubin AST ALT Alkaline Phosphatase Lactate Dehydrogenase Total Creatine Kinase C-Reactive Protein Total Protein Albumin Triglycerides Arterial Blood Glucose 248 H Arterial Blood Ionized Calcium 4.1 L Ur Specific [place] Urine WBC (Auto) Vancomycin Trough Coronavirus (PCR) 11/15/20 11/15/20 11/16/20 13:41 23:41 01:45 WBC RBC Hgb Hct MCHC RDW Plt Count Lymph % (Auto) [place] % (Auto) Lymph # (Auto) [place] # (Auto) Baso # (Auto) Seg Neutrophils % Seg Neuts % (Manual) Lymphocytes % (Manual) Nucleated RBC % Seg Neutrophils # Seg Neutrophils # Man Lymphocytes # (Manual) D-Dimer ABG pH POC ABG pCO2 POC ABG pO2 ABG pO2 ABG HCO3 ABG O2 Saturation ABG Base Excess ABG Hemoglobin ABG Oxyhemoglobin ABG Sodium ABG Potassium ABG Chloride ABG Glucose Oxyhemoglobin Carboxyhemoglobin Sodium Potassium Chloride Carbon Dioxide BUN Creatinine Glucose POC Glucose 284 H Hemoglobin A1c Lactic Acid 2.30 H* Calcium Magnesium Ferritin Total Bilirubin AST ALT Alkaline Phosphatase Lactate Dehydrogenase Total Creatine Kinase C-Reactive Protein Total Protein Albumin Triglycerides Arterial Blood Glucose Arterial Blood Ionized Calcium Ur Specific [place] 1.037 H Urine WBC (Auto) Vancomycin Trough Coronavirus (PCR) 11/16/20 11/16/20 11/16/20 05:29 05:29 05:29 WBC 12.9 H RBC Hgb Hct MCHC RDW Plt Count Lymph % (Auto) 4.5 L [place] % (Auto) Lymph # (Auto) 0.6 L [place] # (Auto) Baso # (Auto) 0.2 H Seg Neutrophils % 89.8 H Seg Neuts % (Manual) Lymphocytes % (Manual) Nucleated RBC % Seg Neutrophils # 11.5 H Seg Neutrophils # Man Lymphocytes # (Manual) D-Dimer ABG pH POC ABG pCO2 POC ABG pO2 ABG pO2 ABG HCO3 ABG O2 Saturation ABG Base Excess ABG Hemoglobin ABG Oxyhemoglobin ABG Sodium ABG Potassium ABG Chloride ABG Glucose Oxyhemoglobin Carboxyhemoglobin Sodium 131 L Potassium Chloride Carbon Dioxide 21 L BUN 23 H Creatinine 0.6 L Glucose 342 H POC Glucose Hemoglobin A1c Lactic Acid 2.60 H* Calcium 7.0 L Magnesium Ferritin Total Bilirubin AST ALT Alkaline Phosphatase Lactate Dehydrogenase Total Creatine Kinase C-Reactive Protein Total Protein Albumin 2.4 L Triglycerides Arterial Blood Glucose Arterial Blood Ionized Calcium Ur Specific [place] Urine WBC (Auto) Vancomycin Trough Coronavirus (PCR) 11/16/20 11/16/20 11/16/20 05:29 08:11 12:11 WBC RBC Hgb Hct MCHC RDW Plt Count Lymph % (Auto) [place] % (Auto) Lymph # (Auto) [place] # (Auto) Baso # (Auto) Seg Neutrophils % Seg Neuts % (Manual) Lymphocytes % (Manual) Nucleated RBC % Seg Neutrophils # Seg Neutrophils # Man Lymphocytes # (Manual) D-Dimer ABG pH POC ABG pCO2 POC ABG pO2 ABG pO2 ABG HCO3 ABG O2 Saturation ABG Base Excess ABG Hemoglobin ABG Oxyhemoglobin ABG Sodium ABG Potassium ABG Chloride ABG Glucose Oxyhemoglobin Carboxyhemoglobin Sodium Potassium Chloride Carbon Dioxide BUN Creatinine Glucose POC Glucose 329 H 320 H Hemoglobin A1c 11.7 H Lactic Acid Calcium Magnesium Ferritin Total Bilirubin AST ALT Alkaline Phosphatase Lactate Dehydrogenase Total Creatine Kinase C-Reactive Protein Total Protein Albumin Triglycerides Arterial Blood Glucose Arterial Blood Ionized Calcium Ur Specific [place] Urine WBC (Auto) Vancomycin Trough Coronavirus (PCR) 11/16/20 11/16/20 11/16/20 16:13 21:29 Unknown WBC RBC Hgb Hct MCHC RDW Plt Count Lymph % (Auto) [place] % (Auto) Lymph # (Auto) [place] # (Auto) Baso # (Auto) Seg Neutrophils % Seg Neuts % (Manual) Lymphocytes % (Manual) Nucleated RBC % Seg Neutrophils # Seg Neutrophils # Man Lymphocytes # (Manual) D-Dimer ABG pH POC ABG pCO2 POC ABG pO2 ABG pO2 ABG HCO3 ABG O2 Saturation ABG Base Excess ABG Hemoglobin ABG Oxyhemoglobin ABG Sodium ABG Potassium ABG Chloride ABG Glucose Oxyhemoglobin Carboxyhemoglobin Sodium Potassium Chloride Carbon Dioxide BUN Creatinine Glucose POC Glucose 257 H 376 H Hemoglobin A1c Lactic Acid Calcium Magnesium Ferritin Total Bilirubin AST ALT Alkaline Phosphatase Lactate Dehydrogenase Total Creatine Kinase C-Reactive Protein Total Protein Albumin Triglycerides Arterial Blood Glucose Arterial Blood Ionized Calcium Ur Specific [place] Urine WBC (Auto) Vancomycin Trough Coronavirus (PCR) Positive A 11/17/20 11/17/20 11/17/20 07:42 12:07 17:25 WBC RBC Hgb Hct MCHC RDW Plt Count Lymph % (Auto) [place] % (Auto) Lymph # (Auto) [place] # (Auto) Baso # (Auto) Seg Neutrophils % Seg Neuts % (Manual) Lymphocytes % (Manual) Nucleated RBC % Seg Neutrophils # Seg Neutrophils # Man Lymphocytes # (Manual) D-Dimer ABG pH POC ABG pCO2 POC ABG pO2 ABG pO2 ABG HCO3 ABG O2 Saturation ABG Base Excess ABG Hemoglobin ABG Oxyhemoglobin ABG Sodium ABG Potassium ABG Chloride ABG Glucose Oxyhemoglobin Carboxyhemoglobin Sodium Potassium Chloride Carbon Dioxide BUN Creatinine Glucose POC Glucose 231 H 380 H 302 H Hemoglobin A1c Lactic Acid Calcium Magnesium Ferritin Total Bilirubin AST ALT Alkaline Phosphatase Lactate Dehydrogenase Total Creatine Kinase C-Reactive Protein Total Protein Albumin Triglycerides Arterial Blood Glucose Arterial Blood Ionized Calcium Ur Specific [place] Urine WBC (Auto) Vancomycin Trough Coronavirus (PCR) 11/17/20 11/18/20 11/18/20 21:53 04:25 07:45 WBC RBC Hgb Hct MCHC RDW Plt Count Lymph % (Auto) [place] % (Auto) Lymph # (Auto) [place] # (Auto) Baso # (Auto) Seg Neutrophils % Seg Neuts % (Manual) Lymphocytes % (Manual) Nucleated RBC % Seg Neutrophils # Seg Neutrophils # Man Lymphocytes # (Manual) D-Dimer ABG pH POC ABG pCO2 POC ABG pO2 ABG pO2 ABG HCO3 ABG O2 Saturation ABG Base Excess ABG Hemoglobin ABG Oxyhemoglobin ABG Sodium ABG Potassium ABG Chloride ABG Glucose Oxyhemoglobin Carboxyhemoglobin Sodium 136 L Potassium Chloride Carbon Dioxide BUN 24 H Creatinine 0.6 L Glucose 212 H POC Glucose 293 H 216 H Hemoglobin A1c Lactic Acid Calcium 7.4 L Magnesium Ferritin Total Bilirubin AST 41 H ALT Alkaline Phosphatase 142 H Lactate Dehydrogenase Total Creatine Kinase C-Reactive Protein Total Protein Albumin 2.3 L Triglycerides Arterial Blood Glucose Arterial Blood Ionized Calcium Ur Specific [place] Urine WBC (Auto) Vancomycin Trough Coronavirus (PCR) 11/18/20 11/18/20 11/18/20 12:28 15:58 21:37 WBC RBC Hgb Hct MCHC RDW Plt Count Lymph % (Auto) [place] % (Auto) Lymph # (Auto) [place] # (Auto) Baso # (Auto) Seg Neutrophils % Seg Neuts % (Manual) Lymphocytes % (Manual) Nucleated RBC % Seg Neutrophils # Seg Neutrophils # Man Lymphocytes # (Manual) D-Dimer ABG pH POC ABG pCO2 POC ABG pO2 ABG pO2 ABG HCO3 ABG O2 Saturation ABG Base Excess ABG Hemoglobin ABG Oxyhemoglobin ABG Sodium ABG Potassium ABG Chloride ABG Glucose Oxyhemoglobin Carboxyhemoglobin Sodium Potassium Chloride Carbon Dioxide BUN Creatinine Glucose POC Glucose 165 H 220 H 311 H Hemoglobin A1c Lactic Acid Calcium Magnesium Ferritin Total Bilirubin AST ALT Alkaline Phosphatase Lactate Dehydrogenase Total Creatine Kinase C-Reactive Protein Total Protein Albumin Triglycerides Arterial Blood Glucose Arterial Blood Ionized Calcium Ur Specific [place] Urine WBC (Auto) Vancomycin Trough Coronavirus (PCR) 11/19/20 11/19/20 11/19/20 05:35 07:40 12:39 WBC RBC Hgb Hct MCHC RDW Plt Count Lymph % (Auto) [place] % (Auto) Lymph # (Auto) [place] # (Auto) Baso # (Auto) Seg Neutrophils % Seg Neuts % (Manual) Lymphocytes % (Manual) Nucleated RBC % Seg Neutrophils # Seg Neutrophils # Man Lymphocytes # (Manual) D-Dimer ABG pH POC ABG pCO2 POC ABG pO2 ABG pO2 ABG HCO3 ABG O2 Saturation ABG Base Excess ABG Hemoglobin ABG Oxyhemoglobin ABG Sodium ABG Potassium ABG Chloride ABG Glucose Oxyhemoglobin Carboxyhemoglobin Sodium 132 L Potassium Chloride Carbon Dioxide BUN 25 H Creatinine 0.5 L Glucose 179 H POC Glucose 149 H 306 H Hemoglobin A1c Lactic Acid Calcium 7.5 L Magnesium Ferritin Total Bilirubin AST ALT Alkaline Phosphatase 139 H Lactate Dehydrogenase Total Creatine Kinase C-Reactive Protein Total Protein Albumin 2.4 L Triglycerides Arterial Blood Glucose Arterial Blood Ionized Calcium Ur Specific [place] Urine WBC (Auto) Vancomycin Trough Coronavirus (PCR) 11/19/20 11/19/20 11/20/20 16:17 21:25 08:30 WBC RBC Hgb Hct MCHC RDW Plt Count Lymph % (Auto) [place] % (Auto) Lymph # (Auto) [place] # (Auto) Baso # (Auto) Seg Neutrophils % Seg Neuts % (Manual) Lymphocytes % (Manual) Nucleated RBC % Seg Neutrophils # Seg Neutrophils # Man Lymphocytes # (Manual) D-Dimer ABG pH POC ABG pCO2 POC ABG pO2 ABG pO2 ABG HCO3 ABG O2 Saturation ABG Base Excess ABG Hemoglobin ABG Oxyhemoglobin ABG Sodium ABG Potassium ABG Chloride ABG Glucose Oxyhemoglobin Carboxyhemoglobin Sodium Potassium Chloride Carbon Dioxide BUN Creatinine Glucose POC Glucose 364 H 347 H 141 H Hemoglobin A1c Lactic Acid Calcium Magnesium Ferritin Total Bilirubin AST ALT Alkaline Phosphatase Lactate Dehydrogenase Total Creatine Kinase C-Reactive Protein Total Protein Albumin Triglycerides Arterial Blood Glucose Arterial Blood Ionized Calcium Ur Specific [place] Urine WBC (Auto) Vancomycin Trough Coronavirus (PCR) 11/20/20 11/20/20 11/20/20 08:50 11:32 16:19 WBC RBC Hgb Hct MCHC RDW Plt Count Lymph % (Auto) [place] % (Auto) Lymph # (Auto) [place] # (Auto) Baso # (Auto) Seg Neutrophils % Seg Neuts % (Manual) Lymphocytes % (Manual) Nucleated RBC % Seg Neutrophils # Seg Neutrophils # Man Lymphocytes # (Manual) D-Dimer ABG pH POC ABG pCO2 POC ABG pO2 ABG pO2 ABG HCO3 ABG O2 Saturation ABG Base Excess ABG Hemoglobin ABG Oxyhemoglobin ABG Sodium ABG Potassium ABG Chloride ABG Glucose Oxyhemoglobin Carboxyhemoglobin Sodium 132 L Potassium Chloride 97.6 L Carbon Dioxide BUN 26 H Creatinine 0.5 L Glucose 201 H POC Glucose 296 H 327 H Hemoglobin A1c Lactic Acid Calcium 7.9 L Magnesium Ferritin Total Bilirubin AST ALT Alkaline Phosphatase 137 H Lactate Dehydrogenase Total Creatine Kinase C-Reactive Protein Total Protein Albumin 2.6 L Triglycerides Arterial Blood Glucose Arterial Blood Ionized Calcium Ur Specific [place] Urine WBC (Auto) Vancomycin Trough Coronavirus (PCR) 11/20/20 11/21/20 11/21/20 22:09 07:59 13:51 WBC RBC Hgb Hct MCHC RDW Plt Count Lymph % (Auto) [place] % (Auto) Lymph # (Auto) [place] # (Auto) Baso # (Auto) Seg Neutrophils % Seg Neuts % (Manual) Lymphocytes % (Manual) Nucleated RBC % Seg Neutrophils # Seg Neutrophils # Man Lymphocytes # (Manual) D-Dimer ABG pH POC ABG pCO2 POC ABG pO2 ABG pO2 ABG HCO3 ABG O2 Saturation ABG Base Excess ABG Hemoglobin ABG Oxyhemoglobin ABG Sodium ABG Potassium ABG Chloride ABG Glucose Oxyhemoglobin Carboxyhemoglobin Sodium Potassium Chloride Carbon Dioxide BUN Creatinine Glucose POC Glucose 311 H 218 H 304 H Hemoglobin A1c Lactic Acid Calcium Magnesium Ferritin Total Bilirubin AST ALT Alkaline Phosphatase Lactate Dehydrogenase Total Creatine Kinase C-Reactive Protein Total Protein Albumin Triglycerides Arterial Blood Glucose Arterial Blood Ionized Calcium Ur Specific [place] Urine WBC (Auto) Vancomycin Trough Coronavirus (PCR) 11/21/20 11/21/20 11/21/20 16:09 21:34 23:00 WBC RBC Hgb Hct MCHC RDW Plt Count Lymph % (Auto) [place] % (Auto) Lymph # (Auto) [place] # (Auto) Baso # (Auto) Seg Neutrophils % Seg Neuts % (Manual) Lymphocytes % (Manual) Nucleated RBC % Seg Neutrophils # Seg Neutrophils # Man Lymphocytes # (Manual) D-Dimer ABG pH 7.206 L POC ABG pCO2 59.3 H POC ABG pO2 76.7 L ABG pO2 ABG HCO3 ABG O2 Saturation ABG Base Excess ABG Hemoglobin ABG Oxyhemoglobin ABG Sodium 133.1 L ABG Potassium ABG Chloride ABG Glucose 320 H Oxyhemoglobin Carboxyhemoglobin Sodium Potassium Chloride Carbon Dioxide BUN Creatinine Glucose POC Glucose 239 H 279 H Hemoglobin A1c Lactic Acid Calcium Magnesium Ferritin Total Bilirubin AST ALT Alkaline Phosphatase Lactate Dehydrogenase Total Creatine Kinase C-Reactive Protein Total Protein Albumin Triglycerides Arterial Blood Glucose 320 H Arterial Blood Ionized Calcium Ur Specific [place] Urine WBC (Auto) Vancomycin Trough Coronavirus (PCR) 11/22/20 11/22/20 11/22/20 04:52 04:52 04:52 WBC RBC Hgb Hct MCHC RDW Plt Count Lymph % (Auto) [place] % (Auto) Lymph # (Auto) [place] # (Auto) Baso # (Auto) Seg Neutrophils % Seg Neuts % (Manual) Lymphocytes % (Manual) Nucleated RBC % Seg Neutrophils # Seg Neutrophils # Man Lymphocytes # (Manual) D-Dimer 1858.36 H ABG pH POC ABG pCO2 POC ABG pO2 ABG pO2 ABG HCO3 ABG O2 Saturation ABG Base Excess ABG Hemoglobin ABG Oxyhemoglobin ABG Sodium ABG Potassium ABG Chloride ABG Glucose Oxyhemoglobin Carboxyhemoglobin Sodium Potassium Chloride Carbon Dioxide BUN Creatinine Glucose POC Glucose Hemoglobin A1c Lactic Acid Calcium Magnesium Ferritin 734.2 H Total Bilirubin AST ALT Alkaline Phosphatase Lactate Dehydrogenase 404 H Total Creatine Kinase C-Reactive Protein 2.80 H Total Protein Albumin Triglycerides Arterial Blood Glucose Arterial Blood Ionized Calcium Ur Specific [place] Urine WBC (Auto) Vancomycin Trough Coronavirus (PCR) 11/22/20 11/22/20 11/22/20 05:12 05:39 11:50 WBC RBC Hgb Hct MCHC RDW Plt Count Lymph % (Auto) [place] % (Auto) Lymph # (Auto) [place] # (Auto) Baso # (Auto) Seg Neutrophils % Seg Neuts % (Manual) Lymphocytes % (Manual) Nucleated RBC % Seg Neutrophils # Seg Neutrophils # Man Lymphocytes # (Manual) D-Dimer ABG pH POC ABG pCO2 POC ABG pO2 51.0 L ABG pO2 ABG HCO3 ABG O2 Saturation ABG Base Excess ABG Hemoglobin ABG Oxyhemoglobin ABG Sodium 131.2 L ABG Potassium 4.6 H ABG Chloride ABG Glucose 317 H Oxyhemoglobin Carboxyhemoglobin Sodium Potassium Chloride Carbon Dioxide BUN Creatinine Glucose POC Glucose 340 H 417 H Hemoglobin A1c Lactic Acid Calcium Magnesium Ferritin Total Bilirubin AST ALT Alkaline Phosphatase Lactate Dehydrogenase Total Creatine Kinase C-Reactive Protein Total Protein Albumin Triglycerides Arterial Blood Glucose 317 H Arterial Blood Ionized Calcium 4.4 L Ur Specific [place] Urine WBC (Auto) Vancomycin Trough Coronavirus (PCR) 11/22/20 11/22/20 11/22/20 12:22 12:22 17:10 WBC 14.4 H RBC Hgb Hct MCHC RDW Plt Count Lymph % (Auto) [place] % (Auto) Lymph # (Auto) [place] # (Auto) Baso # (Auto) Seg Neutrophils % Seg Neuts % (Manual) 98.0 H Lymphocytes % (Manual) Nucleated RBC % Seg Neutrophils # Seg Neutrophils # Man 14.1 H Lymphocytes # (Manual) 0.0 L D-Dimer ABG pH POC ABG pCO2 POC ABG pO2 ABG pO2 ABG HCO3 ABG O2 Saturation ABG Base Excess ABG Hemoglobin ABG Oxyhemoglobin ABG Sodium ABG Potassium ABG Chloride ABG Glucose Oxyhemoglobin Carboxyhemoglobin Sodium 132 L Potassium Chloride Carbon Dioxide BUN 36 H Creatinine 0.6 L Glucose 219 H POC Glucose 157 H Hemoglobin A1c Lactic Acid Calcium 7.2 L Magnesium Ferritin Total Bilirubin AST ALT Alkaline Phosphatase Lactate Dehydrogenase Total Creatine Kinase C-Reactive Protein Total Protein Albumin Triglycerides Arterial Blood Glucose Arterial Blood Ionized Calcium Ur Specific [place] Urine WBC (Auto) Vancomycin Trough Coronavirus (PCR) 11/22/20 11/22/20 11/22/20 18:33 21:44 23:47 WBC RBC Hgb Hct MCHC RDW Plt Count Lymph % (Auto) [place] % (Auto) Lymph # (Auto) [place] # (Auto) Baso # (Auto) Seg Neutrophils % Seg Neuts % (Manual) Lymphocytes % (Manual) Nucleated RBC % Seg Neutrophils # Seg Neutrophils # Man Lymphocytes # (Manual) D-Dimer ABG pH POC ABG pCO2 POC ABG pO2 60.8 L ABG pO2 ABG HCO3 ABG O2 Saturation ABG Base Excess ABG Hemoglobin ABG Oxyhemoglobin 88.1 L ABG Sodium 135.1 L ABG Potassium ABG Chloride ABG Glucose 141 H Oxyhemoglobin Carboxyhemoglobin Sodium Potassium Chloride Carbon Dioxide BUN Creatinine Glucose POC Glucose 117 H 123 H Hemoglobin A1c Lactic Acid Calcium Magnesium Ferritin Total Bilirubin AST ALT Alkaline Phosphatase Lactate Dehydrogenase Total Creatine Kinase C-Reactive Protein Total Protein Albumin Triglycerides Arterial Blood Glucose 141 H Arterial Blood Ionized Calcium Ur Specific [place] Urine WBC (Auto) Vancomycin Trough Coronavirus (PCR) 11/23/20 11/23/20 11/23/20 04:00 04:00 05:23 WBC 14.4 H RBC Hgb Hct MCHC RDW Plt Count Lymph % (Auto) [place] % (Auto) Lymph # (Auto) [place] # (Auto) Baso # (Auto) Seg Neutrophils % Seg Neuts % (Manual) Lymphocytes % (Manual) Nucleated RBC % Seg Neutrophils # Seg Neutrophils # Man Lymphocytes # (Manual) D-Dimer ABG pH POC ABG pCO2 POC ABG pO2 ABG pO2 ABG HCO3 ABG O2 Saturation ABG Base Excess ABG Hemoglobin ABG Oxyhemoglobin ABG Sodium ABG Potassium ABG Chloride ABG Glucose Oxyhemoglobin Carboxyhemoglobin Sodium 136 L Potassium Chloride Carbon Dioxide BUN 33 H Creatinine 0.6 L Glucose 115 H POC Glucose 173 H Hemoglobin A1c Lactic Acid Calcium 7.1 L Magnesium Ferritin Total Bilirubin AST 64 H ALT 75 H Alkaline Phosphatase Lactate Dehydrogenase Total Creatine Kinase C-Reactive Protein Total Protein 5.9 L D Albumin 2.4 L Triglycerides Arterial Blood Glucose Arterial Blood Ionized Calcium Ur Specific [place] Urine WBC (Auto) Vancomycin Trough Coronavirus (PCR) 11/23/20 11/23/20 11/23/20 05:40 11:27 17:10 WBC RBC Hgb Hct MCHC RDW Plt Count Lymph % (Auto) [place] % (Auto) Lymph # (Auto) [place] # (Auto) Baso # (Auto) Seg Neutrophils % Seg Neuts % (Manual) Lymphocytes % (Manual) Nucleated RBC % Seg Neutrophils # Seg Neutrophils # Man Lymphocytes # (Manual) D-Dimer ABG pH POC ABG pCO2 POC ABG pO2 56.5 L ABG pO2 ABG HCO3 ABG O2 Saturation ABG Base Excess ABG Hemoglobin ABG Oxyhemoglobin ABG Sodium ABG Potassium ABG Chloride 109.0 H ABG Glucose 114 H Oxyhemoglobin Carboxyhemoglobin Sodium Potassium Chloride Carbon Dioxide BUN Creatinine Glucose POC Glucose 114 H 136 H Hemoglobin A1c Lactic Acid Calcium Magnesium Ferritin Total Bilirubin AST ALT Alkaline Phosphatase Lactate Dehydrogenase Total Creatine Kinase C-Reactive Protein Total Protein Albumin Triglycerides Arterial Blood Glucose 114 H Arterial Blood Ionized Calcium 4.5 L Ur Specific [place] Urine WBC (Auto) Vancomycin Trough Coronavirus (PCR) 11/24/20 11/24/20 11/24/20 05:14 05:14 05:14 WBC RBC Hgb Hct MCHC RDW Plt Count Lymph % (Auto) [place] % (Auto) Lymph # (Auto) [place] # (Auto) Baso # (Auto) Seg Neutrophils % Seg Neuts % (Manual) Lymphocytes % (Manual) Nucleated RBC % Seg Neutrophils # Seg Neutrophils # Man Lymphocytes # (Manual) D-Dimer 1433.39 H ABG pH POC ABG pCO2 POC ABG pO2 ABG pO2 ABG HCO3 ABG O2 Saturation ABG Base Excess ABG Hemoglobin ABG Oxyhemoglobin ABG Sodium ABG Potassium ABG Chloride ABG Glucose Oxyhemoglobin Carboxyhemoglobin Sodium Potassium Chloride Carbon Dioxide BUN Creatinine Glucose POC Glucose Hemoglobin A1c Lactic Acid Calcium Magnesium Ferritin 997.5 H Total Bilirubin AST ALT Alkaline Phosphatase Lactate Dehydrogenase 463 H Total Creatine Kinase C-Reactive Protein Total Protein Albumin Triglycerides Arterial Blood Glucose Arterial Blood Ionized Calcium Ur Specific [place] Urine WBC (Auto) Vancomycin Trough Coronavirus (PCR) 11/24/20 11/24/20 11/24/20 05:31 05:36 12:05 WBC RBC Hgb Hct MCHC RDW Plt Count Lymph % (Auto) [place] % (Auto) Lymph # (Auto) [place] # (Auto) Baso # (Auto) Seg Neutrophils % Seg Neuts % (Manual) Lymphocytes % (Manual) Nucleated RBC % Seg Neutrophils # Seg Neutrophils # Man Lymphocytes # (Manual) D-Dimer ABG pH POC ABG pCO2 POC ABG pO2 57.2 L ABG pO2 ABG HCO3 ABG O2 Saturation ABG Base Excess ABG Hemoglobin ABG Oxyhemoglobin ABG Sodium ABG Potassium ABG Chloride ABG Glucose 180 H Oxyhemoglobin Carboxyhemoglobin Sodium Potassium Chloride Carbon Dioxide BUN Creatinine Glucose POC Glucose 199 H 143 H Hemoglobin A1c Lactic Acid Calcium Magnesium Ferritin Total Bilirubin AST ALT Alkaline Phosphatase Lactate Dehydrogenase Total Creatine Kinase C-Reactive Protein Total Protein Albumin Triglycerides Arterial Blood Glucose 180 H Arterial Blood Ionized Calcium 4.5 L Ur Specific [place] Urine WBC (Auto) Vancomycin Trough Coronavirus (PCR) 11/24/20 11/24/20 11/24/20 12:14 17:47 23:47 WBC RBC Hgb Hct MCHC RDW Plt Count Lymph % (Auto) [place] % (Auto) Lymph # (Auto) [place] # (Auto) Baso # (Auto) Seg Neutrophils % Seg Neuts % (Manual) Lymphocytes % (Manual) Nucleated RBC % Seg Neutrophils # Seg Neutrophils # Man Lymphocytes # (Manual) D-Dimer ABG pH 7.261 L POC ABG pCO2 59.7 H POC ABG pO2 75.7 L ABG pO2 ABG HCO3 ABG O2 Saturation ABG Base Excess ABG Hemoglobin ABG Oxyhemoglobin 92.5 L ABG Sodium ABG Potassium ABG Chloride 108.0 H ABG Glucose 150 H Oxyhemoglobin Carboxyhemoglobin Sodium Potassium Chloride Carbon Dioxide BUN Creatinine Glucose POC Glucose 223 H 179 H Hemoglobin A1c Lactic Acid Calcium Magnesium Ferritin Total Bilirubin AST ALT Alkaline Phosphatase Lactate Dehydrogenase Total Creatine Kinase C-Reactive Protein Total Protein Albumin Triglycerides Arterial Blood Glucose 150 H Arterial Blood Ionized Calcium Ur Specific [place] Urine WBC (Auto) Vancomycin Trough Coronavirus (PCR) 11/25/20 11/25/20 11/25/20 03:29 05:07 05:15 WBC 13.9 H RBC Hgb Hct MCHC RDW Plt Count Lymph % (Auto) [place] % (Auto) Lymph # (Auto) [place] # (Auto) Baso # (Auto) Seg Neutrophils % Seg Neuts % (Manual) 97.0 H Lymphocytes % (Manual) Nucleated RBC % Seg Neutrophils # Seg Neutrophils # Man 13.5 H Lymphocytes # (Manual) 0.0 L D-Dimer ABG pH 7.272 L POC ABG pCO2 69.0 H POC ABG pO2 132.9 H ABG pO2 ABG HCO3 ABG O2 Saturation ABG Base Excess ABG Hemoglobin ABG Oxyhemoglobin ABG Sodium ABG Potassium ABG Chloride ABG Glucose 174 H Oxyhemoglobin Carboxyhemoglobin Sodium Potassium Chloride Carbon Dioxide BUN Creatinine Glucose POC Glucose 168 H Hemoglobin A1c Lactic Acid Calcium Magnesium Ferritin Total Bilirubin AST ALT Alkaline Phosphatase Lactate Dehydrogenase Total Creatine Kinase C-Reactive Protein Total Protein Albumin Triglycerides Arterial Blood Glucose 174 H Arterial Blood Ionized Calcium Ur Specific [place] Urine WBC (Auto) Vancomycin Trough Coronavirus (PCR) 11/25/20 11/25/20 11/25/20 05:15 11:25 17:35 WBC RBC Hgb Hct MCHC RDW Plt Count Lymph % (Auto) [place] % (Auto) Lymph # (Auto) [place] # (Auto) Baso # (Auto) Seg Neutrophils % Seg Neuts % (Manual) Lymphocytes % (Manual) Nucleated RBC % Seg Neutrophils # Seg Neutrophils # Man Lymphocytes # (Manual) D-Dimer ABG pH POC ABG pCO2 POC ABG pO2 ABG pO2 ABG HCO3 ABG O2 Saturation ABG Base Excess ABG Hemoglobin ABG Oxyhemoglobin ABG Sodium ABG Potassium ABG Chloride ABG Glucose Oxyhemoglobin Carboxyhemoglobin Sodium Potassium Chloride Carbon Dioxide BUN 29 H Creatinine 0.5 L Glucose 161 H POC Glucose 224 H 228 H Hemoglobin A1c Lactic Acid Calcium 7.8 L Magnesium Ferritin Total Bilirubin AST 89 H ALT 129 H Alkaline Phosphatase Lactate Dehydrogenase Total Creatine Kinase C-Reactive Protein Total Protein 5.8 L Albumin 2.5 L Triglycerides Arterial Blood Glucose Arterial Blood Ionized Calcium Ur Specific [place] Urine WBC (Auto) Vancomycin Trough Coronavirus (PCR) 11/25/20 11/25/20 11/26/20 20:45 23:28 04:00 WBC RBC Hgb Hct MCHC RDW Plt Count Lymph % (Auto) [place] % (Auto) Lymph # (Auto) [place] # (Auto) Baso # (Auto) Seg Neutrophils % Seg Neuts % (Manual) Lymphocytes % (Manual) Nucleated RBC % Seg Neutrophils # Seg Neutrophils # Man Lymphocytes # (Manual) D-Dimer ABG pH POC ABG pCO2 POC ABG pO2 ABG pO2 ABG HCO3 ABG O2 Saturation ABG Base Excess ABG Hemoglobin ABG Oxyhemoglobin ABG Sodium ABG Potassium ABG Chloride ABG Glucose Oxyhemoglobin Carboxyhemoglobin Sodium Potassium Chloride Carbon Dioxide BUN Creatinine Glucose POC Glucose 177 H 243 H Hemoglobin A1c Lactic Acid Calcium Magnesium Ferritin 778.8 H Total Bilirubin AST ALT Alkaline Phosphatase Lactate Dehydrogenase Total Creatine Kinase C-Reactive Protein Total Protein Albumin Triglycerides Arterial Blood Glucose Arterial Blood Ionized Calcium Ur Specific [place] Urine WBC (Auto) Vancomycin Trough Coronavirus (PCR) 11/26/20 11/26/20 11/26/20 04:00 05:34 06:04 WBC RBC Hgb Hct MCHC RDW Plt Count Lymph % (Auto) [place] % (Auto) Lymph # (Auto) [place] # (Auto) Baso # (Auto) Seg Neutrophils % Seg Neuts % (Manual) Lymphocytes % (Manual) Nucleated RBC % Seg Neutrophils # Seg Neutrophils # Man Lymphocytes # (Manual) D-Dimer 926.11 H ABG pH POC ABG pCO2 POC ABG pO2 ABG pO2 ABG HCO3 ABG O2 Saturation ABG Base Excess ABG Hemoglobin ABG Oxyhemoglobin ABG Sodium ABG Potassium ABG Chloride ABG Glucose Oxyhemoglobin Carboxyhemoglobin Sodium Potassium Chloride Carbon Dioxide 39 H D BUN 30 H Creatinine 0.5 L Glucose 193 H POC Glucose 178 H Hemoglobin A1c Lactic Acid Calcium 7.7 L Magnesium Ferritin Total Bilirubin AST 65 H ALT 132 H Alkaline Phosphatase Lactate Dehydrogenase 288 H Total Creatine Kinase C-Reactive Protein 1.40 H Total Protein 5.7 L Albumin 2.4 L Triglycerides Arterial Blood Glucose Arterial Blood Ionized Calcium Ur Specific [place] Urine WBC (Auto) Vancomycin Trough Coronavirus (PCR) 11/26/20 11/26/20 11/26/20 06:04 08:47 11:20 WBC 12.4 H RBC Hgb Hct MCHC RDW Plt Count Lymph % (Auto) [place] % (Auto) Lymph # (Auto) [place] # (Auto) Baso # (Auto) Seg Neutrophils % Seg Neuts % (Manual) 98.0 H Lymphocytes % (Manual) 1.0 L Nucleated RBC % Seg Neutrophils # Seg Neutrophils # Man 12.2 H Lymphocytes # (Manual) 0.1 L D-Dimer ABG pH POC ABG pCO2 75.2 H POC ABG pO2 61.9 L ABG pO2 ABG HCO3 ABG O2 Saturation ABG Base Excess ABG Hemoglobin ABG Oxyhemoglobin 90.3 L ABG Sodium ABG Potassium ABG Chloride ABG Glucose 243 H Oxyhemoglobin Carboxyhemoglobin Sodium Potassium Chloride Carbon Dioxide BUN Creatinine Glucose POC Glucose 255 H Hemoglobin A1c Lactic Acid Calcium Magnesium Ferritin Total Bilirubin AST ALT Alkaline Phosphatase Lactate Dehydrogenase Total Creatine Kinase C-Reactive Protein Total Protein Albumin Triglycerides Arterial Blood Glucose 243 H Arterial Blood Ionized Calcium Ur Specific [place] Urine WBC (Auto) Vancomycin Trough Coronavirus (PCR) 11/26/20 11/26/20 11/26/20 16:20 17:15 23:41 WBC RBC Hgb Hct MCHC RDW Plt Count Lymph % (Auto) [place] % (Auto) Lymph # (Auto) [place] # (Auto) Baso # (Auto) Seg Neutrophils % Seg Neuts % (Manual) Lymphocytes % (Manual) Nucleated RBC % Seg Neutrophils # Seg Neutrophils # Man Lymphocytes # (Manual) D-Dimer ABG pH POC ABG pCO2 66.6 H POC ABG pO2 78.1 L ABG pO2 ABG HCO3 ABG O2 Saturation ABG Base Excess ABG Hemoglobin ABG Oxyhemoglobin ABG Sodium ABG Potassium ABG Chloride ABG Glucose 244 H Oxyhemoglobin Carboxyhemoglobin Sodium Potassium Chloride Carbon Dioxide BUN Creatinine Glucose POC Glucose 219 H 210 H Hemoglobin A1c Lactic Acid Calcium Magnesium Ferritin Total Bilirubin AST ALT Alkaline Phosphatase Lactate Dehydrogenase Total Creatine Kinase C-Reactive Protein Total Protein Albumin Triglycerides Arterial Blood Glucose 244 H Arterial Blood Ionized Calcium Ur Specific [place] Urine WBC (Auto) Vancomycin Trough Coronavirus (PCR) 11/27/20 11/27/20 11/27/20 04:46 05:38 06:25 WBC 13.8 H RBC Hgb Hct MCHC RDW Plt Count Lymph % (Auto) 2.0 L [place] % (Auto) Lymph # (Auto) 0.3 L [place] # (Auto) Baso # (Auto) Seg Neutrophils % Seg Neuts % (Manual) 96.0 H Lymphocytes % (Manual) Nucleated RBC % Seg Neutrophils # 12.7 H Seg Neutrophils # Man 13.2 H Lymphocytes # (Manual) 0.0 L D-Dimer ABG pH POC ABG pCO2 63.0 H POC ABG pO2 53.6 L ABG pO2 ABG HCO3 ABG O2 Saturation ABG Base Excess ABG Hemoglobin ABG Oxyhemoglobin 87.8 L ABG Sodium 115.4 L ABG Potassium ABG Chloride ABG Glucose 219 H Oxyhemoglobin Carboxyhemoglobin Sodium Potassium Chloride Carbon Dioxide BUN Creatinine Glucose POC Glucose 227 H Hemoglobin A1c Lactic Acid Calcium Magnesium Ferritin Total Bilirubin AST ALT Alkaline Phosphatase Lactate Dehydrogenase Total Creatine Kinase C-Reactive Protein Total Protein Albumin Triglycerides Arterial Blood Glucose 219 H Arterial Blood Ionized Calcium Ur Specific [place] Urine WBC (Auto) Vancomycin Trough Coronavirus (PCR) 11/27/20 11/27/20 11/27/20 06:25 18:05 23:29 WBC RBC Hgb Hct MCHC RDW Plt Count Lymph % (Auto) [place] % (Auto) Lymph # (Auto) [place] # (Auto) Baso # (Auto) Seg Neutrophils % Seg Neuts % (Manual) Lymphocytes % (Manual) Nucleated RBC % Seg Neutrophils # Seg Neutrophils # Man Lymphocytes # (Manual) D-Dimer ABG pH POC ABG pCO2 POC ABG pO2 ABG pO2 ABG HCO3 ABG O2 Saturation ABG Base Excess ABG Hemoglobin ABG Oxyhemoglobin ABG Sodium ABG Potassium ABG Chloride ABG Glucose Oxyhemoglobin Carboxyhemoglobin Sodium Potassium Chloride Carbon Dioxide 38 H BUN 34 H Creatinine 0.4 L Glucose 243 H POC Glucose 329 H 227 H Hemoglobin A1c Lactic Acid Calcium 7.9 L Magnesium Ferritin Total Bilirubin AST 50 H ALT 110 H Alkaline Phosphatase Lactate Dehydrogenase Total Creatine Kinase C-Reactive Protein Total Protein 6.1 L Albumin 2.4 L Triglycerides Arterial Blood Glucose Arterial Blood Ionized Calcium Ur Specific [place] Urine WBC (Auto) Vancomycin Trough Coronavirus (PCR) 11/28/20 11/28/20 11/28/20 03:45 03:45 03:46 WBC 12.2 H RBC Hgb Hct MCHC RDW Plt Count Lymph % (Auto) [place] % (Auto) Lymph # (Auto) [place] # (Auto) Baso # (Auto) Seg Neutrophils % Seg Neuts % (Manual) 93.0 H Lymphocytes % (Manual) 2.0 L Nucleated RBC % Seg Neutrophils # Seg Neutrophils # Man 11.3 H Lymphocytes # (Manual) 0.2 L D-Dimer ABG pH POC ABG pCO2 68.4 H POC ABG pO2 55.4 L ABG pO2 ABG HCO3 ABG O2 Saturation ABG Base Excess ABG Hemoglobin ABG Oxyhemoglobin ABG Sodium ABG Potassium ABG Chloride ABG Glucose 197 H Oxyhemoglobin Carboxyhemoglobin Sodium Potassium Chloride Carbon Dioxide 36 H BUN 37 H Creatinine 0.4 L Glucose 194 H POC Glucose Hemoglobin A1c Lactic Acid Calcium 8.1 L Magnesium Ferritin Total Bilirubin AST ALT 86 H Alkaline Phosphatase Lactate Dehydrogenase Total Creatine Kinase C-Reactive Protein Total Protein 6.0 L Albumin 2.3 L Triglycerides Arterial Blood Glucose 197 H Arterial Blood Ionized Calcium Ur Specific [place] Urine WBC (Auto) Vancomycin Trough Coronavirus (PCR) 02/11/28/20 11/29/20 05:24 12:21 04:41 WBC RBC Hgb Hct MCHC RDW Plt Count Lymph % (Auto) [place] % (Auto) Lymph # (Auto) [place] # (Auto) Baso # (Auto) Seg Neutrophils % Seg Neuts % (Manual) Lymphocytes % (Manual) Nucleated RBC % Seg Neutrophils # Seg Neutrophils # Man Lymphocytes # (Manual) D-Dimer ABG pH POC ABG pCO2 55.1 H POC ABG pO2 53.6 L ABG pO2 ABG HCO3 ABG O2 Saturation ABG Base Excess ABG Hemoglobin ABG Oxyhemoglobin 87.1 L ABG Sodium 131.2 L ABG Potassium ABG Chloride ABG Glucose 164 H Oxyhemoglobin Carboxyhemoglobin Sodium Potassium Chloride Carbon Dioxide BUN Creatinine Glucose POC Glucose 173 H 126 H Hemoglobin A1c Lactic Acid Calcium Magnesium Ferritin Total Bilirubin AST ALT Alkaline Phosphatase Lactate Dehydrogenase Total Creatine Kinase C-Reactive Protein Total Protein Albumin Triglycerides Arterial Blood Glucose 164 H Arterial Blood Ionized Calcium 4.4 L Ur Specific [place] Urine WBC (Auto) Vancomycin Trough Coronavirus (PCR) 11/29/20 11/29/20 11/29/20 05:29 12:41 13:28 WBC RBC Hgb Hct MCHC RDW Plt Count Lymph % (Auto) [place] % (Auto) Lymph # (Auto) [place] # (Auto) Baso # (Auto) Seg Neutrophils % Seg Neuts % (Manual) Lymphocytes % (Manual) Nucleated RBC % Seg Neutrophils # Seg Neutrophils # Man Lymphocytes # (Manual) D-Dimer ABG pH POC ABG pCO2 POC ABG pO2 ABG pO2 ABG HCO3 ABG O2 Saturation ABG Base Excess ABG Hemoglobin ABG Oxyhemoglobin ABG Sodium ABG Potassium ABG Chloride ABG Glucose Oxyhemoglobin Carboxyhemoglobin Sodium Potassium Chloride Carbon Dioxide 40 H BUN 32 H Creatinine 0.4 L Glucose 274 H POC Glucose 173 H 257 H Hemoglobin A1c Lactic Acid Calcium 7.2 L Magnesium Ferritin Total Bilirubin AST 57 H ALT 102 H Alkaline Phosphatase Lactate Dehydrogenase Total Creatine Kinase C-Reactive Protein Total Protein 5.7 L Albumin 2.1 L Triglycerides Arterial Blood Glucose Arterial Blood Ionized Calcium Ur Specific [place] Urine WBC (Auto) Vancomycin Trough Coronavirus (PCR) 11/29/20 11/29/20 11/29/20 15:40 17:36 21:26 WBC RBC Hgb Hct MCHC RDW Plt Count Lymph % (Auto) [place] % (Auto) Lymph # (Auto) [place] # (Auto) Baso # (Auto) Seg Neutrophils % Seg Neuts % (Manual) Lymphocytes % (Manual) Nucleated RBC % Seg Neutrophils # Seg Neutrophils # Man Lymphocytes # (Manual) D-Dimer ABG pH POC ABG pCO2 POC ABG pO2 ABG pO2 ABG HCO3 ABG O2 Saturation ABG Base Excess ABG Hemoglobin ABG Oxyhemoglobin ABG Sodium ABG Potassium ABG Chloride ABG Glucose Oxyhemoglobin Carboxyhemoglobin Sodium Potassium Chloride Carbon Dioxide BUN Creatinine Glucose POC Glucose 240 H 244 H Hemoglobin A1c Lactic Acid Calcium Magnesium Ferritin Total Bilirubin AST ALT Alkaline Phosphatase Lactate Dehydrogenase Total Creatine Kinase C-Reactive Protein Total Protein Albumin Triglycerides Arterial Blood Glucose Arterial Blood Ionized Calcium Ur Specific [place] Urine WBC (Auto) Vancomycin Trough 4.0 L Coronavirus (PCR) 11/29/20 11/30/20 11/30/20 23:26 03:30 03:30 WBC RBC Hgb Hct MCHC RDW Plt Count Lymph % (Auto) [place] % (Auto) Lymph # (Auto) [place] # (Auto) Baso # (Auto) Seg Neutrophils % Seg Neuts % (Manual) 97.0 H Lymphocytes % (Manual) 1.0 L Nucleated RBC % Seg Neutrophils # Seg Neutrophils # Man 9.9 H Lymphocytes # (Manual) 0.1 L D-Dimer ABG pH POC ABG pCO2 POC ABG pO2 ABG pO2 ABG HCO3 ABG O2 Saturation ABG Base Excess ABG Hemoglobin ABG Oxyhemoglobin ABG Sodium ABG Potassium ABG Chloride ABG Glucose Oxyhemoglobin Carboxyhemoglobin Sodium Potassium Chloride Carbon Dioxide 38 H BUN 34 H Creatinine 0.4 L Glucose 305 H POC Glucose 283 H Hemoglobin A1c Lactic Acid Calcium 7.6 L Magnesium Ferritin Total Bilirubin AST ALT 89 H Alkaline Phosphatase Lactate Dehydrogenase Total Creatine Kinase C-Reactive Protein Total Protein 6.0 L Albumin 2.3 L Triglycerides Arterial Blood Glucose Arterial Blood Ionized Calcium Ur Specific [place] Urine WBC (Auto) Vancomycin Trough Coronavirus (PCR) 11/30/20 11/30/20 11/30/20 03:57 05:22 12:05 WBC RBC Hgb Hct MCHC RDW Plt Count Lymph % (Auto) [place] % (Auto) Lymph # (Auto) [place] # (Auto) Baso # (Auto) Seg Neutrophils % Seg Neuts % (Manual) Lymphocytes % (Manual) Nucleated RBC % Seg Neutrophils # Seg Neutrophils # Man Lymphocytes # (Manual) D-Dimer ABG pH POC ABG pCO2 60.8 H POC ABG pO2 51.1 L ABG pO2 ABG HCO3 ABG O2 Saturation ABG Base Excess ABG Hemoglobin ABG Oxyhemoglobin 84.6 L ABG Sodium ABG Potassium ABG Chloride ABG Glucose 315 H Oxyhemoglobin Carboxyhemoglobin Sodium Potassium Chloride Carbon Dioxide BUN Creatinine Glucose POC Glucose 295 H 413 H Hemoglobin A1c Lactic Acid Calcium Magnesium Ferritin Total Bilirubin AST ALT Alkaline Phosphatase Lactate Dehydrogenase Total Creatine Kinase C-Reactive Protein Total Protein Albumin Triglycerides Arterial Blood Glucose 315 H Arterial Blood Ionized Calcium 4.5 L Ur Specific [place] Urine WBC (Auto) Vancomycin Trough Coronavirus (PCR) 11/30/20 11/30/20 12/01/20 17:24 23:25 02:14 WBC RBC Hgb Hct MCHC RDW Plt Count Lymph % (Auto) [place] % (Auto) Lymph # (Auto) [place] # (Auto) Baso # (Auto) Seg Neutrophils % Seg Neuts % (Manual) Lymphocytes % (Manual) Nucleated RBC % Seg Neutrophils # Seg Neutrophils # Man Lymphocytes # (Manual) D-Dimer ABG pH 7.278 L POC ABG pCO2 78.1 H POC ABG pO2 79.5 L ABG pO2 ABG HCO3 ABG O2 Saturation ABG Base Excess ABG Hemoglobin 11.6 L ABG Oxyhemoglobin ABG Sodium 134.5 L ABG Potassium 4.6 H ABG Chloride ABG Glucose 286 H Oxyhemoglobin Carboxyhemoglobin Sodium Potassium Chloride Carbon Dioxide BUN Creatinine Glucose POC Glucose 305 H 302 H Hemoglobin A1c Lactic Acid Calcium Magnesium Ferritin Total Bilirubin AST ALT Alkaline Phosphatase Lactate Dehydrogenase Total Creatine Kinase C-Reactive Protein Total Protein Albumin Triglycerides Arterial Blood Glucose 286 H Arterial Blood Ionized Calcium Ur Specific [place] Urine WBC (Auto) Vancomycin Trough Coronavirus (PCR) 12/01/20 12/01/20 12/01/20 03:35 03:35 05:22 WBC 13.4 H RBC 3.54 L Hgb 10.4 L Hct 31.8 L MCHC RDW Plt Count Lymph % (Auto) [place] % (Auto) Lymph # (Auto) [place] # (Auto) Baso # (Auto) Seg Neutrophils % Seg Neuts % (Manual) 95.0 H Lymphocytes % (Manual) 3.0 L Nucleated RBC % Seg Neutrophils # Seg Neutrophils # Man 12.7 H Lymphocytes # (Manual) 0.4 L D-Dimer ABG pH POC ABG pCO2 POC ABG pO2 ABG pO2 ABG HCO3 ABG O2 Saturation ABG Base Excess ABG Hemoglobin ABG Oxyhemoglobin ABG Sodium ABG Potassium ABG Chloride ABG Glucose Oxyhemoglobin Carboxyhemoglobin Sodium Potassium Chloride Carbon Dioxide 35 H BUN 34 H Creatinine 0.5 L Glucose 279 H POC Glucose 259 H Hemoglobin A1c Lactic Acid Calcium 7.6 L Magnesium Ferritin Total Bilirubin AST ALT 63 H Alkaline Phosphatase Lactate Dehydrogenase Total Creatine Kinase C-Reactive Protein Total Protein 4.8 L Albumin 2.1 L Triglycerides Arterial Blood Glucose Arterial Blood Ionized Calcium Ur Specific [place] Urine WBC (Auto) Vancomycin Trough Coronavirus (PCR) 12/01/20 12/01/20 12/01/20 12:05 17:40 23:46 WBC RBC Hgb Hct MCHC RDW Plt Count Lymph % (Auto) [place] % (Auto) Lymph # (Auto) [place] # (Auto) Baso # (Auto) Seg Neutrophils % Seg Neuts % (Manual) Lymphocytes % (Manual) Nucleated RBC % Seg Neutrophils # Seg Neutrophils # Man Lymphocytes # (Manual) D-Dimer ABG pH POC ABG pCO2 POC ABG pO2 ABG pO2 ABG HCO3 ABG O2 Saturation ABG Base Excess ABG Hemoglobin ABG Oxyhemoglobin ABG Sodium ABG Potassium ABG Chloride ABG Glucose Oxyhemoglobin Carboxyhemoglobin Sodium Potassium Chloride Carbon Dioxide BUN Creatinine Glucose POC Glucose 197 H 244 H 284 H Hemoglobin A1c Lactic Acid Calcium Magnesium Ferritin Total Bilirubin AST ALT Alkaline Phosphatase Lactate Dehydrogenase Total Creatine Kinase C-Reactive Protein Total Protein Albumin Triglycerides Arterial Blood Glucose Arterial Blood Ionized Calcium Ur Specific [place] Urine WBC (Auto) Vancomycin Trough Coronavirus (PCR) 12/02/20 12/02/20 12/02/20 02:14 03:03 04:11 WBC 16.5 H RBC 3.55 L Hgb 10.5 L Hct 31.9 L MCHC RDW Plt Count Lymph % (Auto) [place] % (Auto) Lymph # (Auto) [place] # (Auto) Baso # (Auto) Seg Neutrophils % Seg Neuts % (Manual) 90.0 H Lymphocytes % (Manual) 3.0 L Nucleated RBC % Seg Neutrophils # Seg Neutrophils # Man 14.9 H Lymphocytes # (Manual) 0.5 L D-Dimer ABG pH POC ABG pCO2 74.8 H POC ABG pO2 58.9 L ABG pO2 ABG HCO3 ABG O2 Saturation ABG Base Excess ABG Hemoglobin 11.5 L ABG Oxyhemoglobin ABG Sodium ABG Potassium ABG Chloride ABG Glucose 264 H Oxyhemoglobin Carboxyhemoglobin Sodium Potassium Chloride Carbon Dioxide 37 H BUN 30 H Creatinine 0.4 L Glucose 245 H POC Glucose Hemoglobin A1c Lactic Acid Calcium 7.5 L Magnesium Ferritin Total Bilirubin AST ALT Alkaline Phosphatase Lactate Dehydrogenase Total Creatine Kinase C-Reactive Protein Total Protein 5.2 L Albumin 2.2 L Triglycerides Arterial Blood Glucose 264 H Arterial Blood Ionized Calcium 4.5 L Ur Specific [place] Urine WBC (Auto) Vancomycin Trough Coronavirus (PCR) 12/02/20 12/02/20 12/02/20 05:19 11:46 17:52 WBC RBC Hgb Hct MCHC RDW Plt Count Lymph % (Auto) [place] % (Auto) Lymph # (Auto) [place] # (Auto) Baso # (Auto) Seg Neutrophils % Seg Neuts % (Manual) Lymphocytes % (Manual) Nucleated RBC % Seg Neutrophils # Seg Neutrophils # Man Lymphocytes # (Manual) D-Dimer ABG pH POC ABG pCO2 POC ABG pO2 ABG pO2 ABG HCO3 ABG O2 Saturation ABG Base Excess ABG Hemoglobin ABG Oxyhemoglobin ABG Sodium ABG Potassium ABG Chloride ABG Glucose Oxyhemoglobin Carboxyhemoglobin Sodium Potassium Chloride Carbon Dioxide BUN Creatinine Glucose POC Glucose 238 H 236 H 233 H Hemoglobin A1c Lactic Acid Calcium Magnesium Ferritin Total Bilirubin AST ALT Alkaline Phosphatase Lactate Dehydrogenase Total Creatine Kinase C-Reactive Protein Total Protein Albumin Triglycerides Arterial Blood Glucose Arterial Blood Ionized Calcium Ur Specific [place] Urine WBC (Auto) Vancomycin Trough Coronavirus (PCR) 12/02/20 12/03/20 12/03/20 23:23 03:21 04:35 WBC RBC Hgb Hct MCHC RDW Plt Count 112 L Lymph % (Auto) [place] % (Auto) Lymph # (Auto) [place] # (Auto) Baso # (Auto) Seg Neutrophils % Seg Neuts % (Manual) 93.0 H Lymphocytes % (Manual) 4.0 L Nucleated RBC % Seg Neutrophils # Seg Neutrophils # Man 9.1 H Lymphocytes # (Manual) 0.4 L D-Dimer ABG pH 7.299 L POC ABG pCO2 82.1 H POC ABG pO2 62.4 L ABG pO2 ABG HCO3 ABG O2 Saturation ABG Base Excess ABG Hemoglobin 11.5 L ABG Oxyhemoglobin 89.6 L ABG Sodium 134.3 L ABG Potassium ABG Chloride 95.0 L ABG Glucose 203 H Oxyhemoglobin Carboxyhemoglobin Sodium Potassium Chloride Carbon Dioxide BUN Creatinine Glucose POC Glucose 213 H Hemoglobin A1c Lactic Acid Calcium Magnesium Ferritin Total Bilirubin AST ALT Alkaline Phosphatase Lactate Dehydrogenase Total Creatine Kinase C-Reactive Protein Total Protein Albumin Triglycerides Arterial Blood Glucose 203 H Arterial Blood Ionized Calcium 4.5 L Ur Specific [place] Urine WBC (Auto) Vancomycin Trough Coronavirus (PCR) 12/03/20 12/03/20 12/03/20 04:35 05:42 11:28 WBC RBC Hgb Hct MCHC RDW Plt Count Lymph % (Auto) [place] % (Auto) Lymph # (Auto) [place] # (Auto) Baso # (Auto) Seg Neutrophils % Seg Neuts % (Manual) Lymphocytes % (Manual) Nucleated RBC % Seg Neutrophils # Seg Neutrophils # Man Lymphocytes # (Manual) D-Dimer ABG pH POC ABG pCO2 POC ABG pO2 ABG pO2 ABG HCO3 ABG O2 Saturation ABG Base Excess ABG Hemoglobin ABG Oxyhemoglobin ABG Sodium ABG Potassium ABG Chloride ABG Glucose Oxyhemoglobin Carboxyhemoglobin Sodium Potassium Chloride 97.8 L Carbon Dioxide 43 H* BUN 25 H Creatinine 0.3 L Glucose 214 H POC Glucose 193 H 211 H Hemoglobin A1c Lactic Acid Calcium 7.7 L Magnesium Ferritin Total Bilirubin AST ALT 63 H Alkaline Phosphatase 132 H Lactate Dehydrogenase Total Creatine Kinase C-Reactive Protein Total Protein 5.1 L Albumin 2.4 L Triglycerides Arterial Blood Glucose Arterial Blood Ionized Calcium Ur Specific [place] Urine WBC (Auto) Vancomycin Trough Coronavirus (PCR) 12/03/20 12/03/20 12/04/20 17:45 23:57 00:11 WBC RBC Hgb Hct MCHC RDW Plt Count Lymph % (Auto) [place] % (Auto) Lymph # (Auto) [place] # (Auto) Baso # (Auto) Seg Neutrophils % Seg Neuts % (Manual) Lymphocytes % (Manual) Nucleated RBC % Seg Neutrophils # Seg Neutrophils # Man Lymphocytes # (Manual) D-Dimer ABG pH POC ABG pCO2 POC ABG pO2 ABG pO2 ABG HCO3 ABG O2 Saturation ABG Base Excess ABG Hemoglobin ABG Oxyhemoglobin ABG Sodium ABG Potassium ABG Chloride ABG Glucose Oxyhemoglobin Carboxyhemoglobin Sodium Potassium Chloride Carbon Dioxide BUN Creatinine Glucose POC Glucose 231 H 240 H 239 H Hemoglobin A1c Lactic Acid Calcium Magnesium Ferritin Total Bilirubin AST ALT Alkaline Phosphatase Lactate Dehydrogenase Total Creatine Kinase C-Reactive Protein Total Protein Albumin Triglycerides Arterial Blood Glucose Arterial Blood Ionized Calcium Ur Specific [place] Urine WBC (Auto) Vancomycin Trough Coronavirus (PCR) 12/04/20 12/04/20 12/04/20 04:00 05:20 05:34 WBC RBC Hgb Hct MCHC RDW Plt Count Lymph % (Auto) [place] % (Auto) Lymph # (Auto) [place] # (Auto) Baso # (Auto) Seg Neutrophils % Seg Neuts % (Manual) Lymphocytes % (Manual) Nucleated RBC % Seg Neutrophils # Seg Neutrophils # Man Lymphocytes # (Manual) D-Dimer ABG pH POC ABG pCO2 84.4 H POC ABG pO2 68.0 L ABG pO2 ABG HCO3 ABG O2 Saturation ABG Base Excess ABG Hemoglobin 11.6 L ABG Oxyhemoglobin ABG Sodium 130.9 L ABG Potassium ABG Chloride 90.0 L ABG Glucose 244 H Oxyhemoglobin Carboxyhemoglobin Sodium Potassium Chloride Carbon Dioxide BUN Creatinine Glucose POC Glucose 241 H 213 H Hemoglobin A1c Lactic Acid Calcium Magnesium Ferritin Total Bilirubin AST ALT Alkaline Phosphatase Lactate Dehydrogenase Total Creatine Kinase C-Reactive Protein Total Protein Albumin Triglycerides Arterial Blood Glucose 244 H Arterial Blood Ionized Calcium 4.4 L Ur Specific [place] Urine WBC (Auto) Vancomycin Trough Coronavirus (PCR) 12/04/20 12/04/20 12/04/20 11:36 16:53 23:32 WBC RBC Hgb Hct MCHC RDW Plt Count Lymph % (Auto) [place] % (Auto) Lymph # (Auto) [place] # (Auto) Baso # (Auto) Seg Neutrophils % Seg Neuts % (Manual) Lymphocytes % (Manual) Nucleated RBC % Seg Neutrophils # Seg Neutrophils # Man Lymphocytes # (Manual) D-Dimer ABG pH POC ABG pCO2 POC ABG pO2 ABG pO2 ABG HCO3 ABG O2 Saturation ABG Base Excess ABG Hemoglobin ABG Oxyhemoglobin ABG Sodium ABG Potassium ABG Chloride ABG Glucose Oxyhemoglobin Carboxyhemoglobin Sodium Potassium Chloride Carbon Dioxide BUN Creatinine Glucose POC Glucose 196 H 127 H 230 H Hemoglobin A1c Lactic Acid Calcium Magnesium Ferritin Total Bilirubin AST ALT Alkaline Phosphatase Lactate Dehydrogenase Total Creatine Kinase C-Reactive Protein Total Protein Albumin Triglycerides Arterial Blood Glucose Arterial Blood Ionized Calcium Ur Specific [place] Urine WBC (Auto) Vancomycin Trough Coronavirus (PCR) 02/19/21 02/20/21 02/20/21 Unknown 04:16 05:21 WBC RBC Hgb Hct MCHC RDW Plt Count Lymph % (Auto) [place] % (Auto) Lymph # (Auto) [place] # (Auto) Baso # (Auto) Seg Neutrophils % Seg Neuts % (Manual) Lymphocytes % (Manual) Nucleated RBC % Seg Neutrophils # Seg Neutrophils # Man Lymphocytes # (Manual) D-Dimer ABG pH POC ABG pCO2 86.7 H POC ABG pO2 58.0 L ABG pO2 ABG HCO3 ABG O2 Saturation ABG Base Excess ABG Hemoglobin 11.6 L ABG Oxyhemoglobin 89 L ABG Sodium 130.1 L ABG Potassium 4.9 H ABG Chloride 89.0 L ABG Glucose 254 H Oxyhemoglobin Carboxyhemoglobin Sodium 136 L Potassium Chloride 90.0 L Carbon Dioxide 46 H* BUN 24 H Creatinine 0.3 L Glucose 226 H POC Glucose 213 H Hemoglobin A1c Lactic Acid Calcium 7.6 L Magnesium Ferritin Total Bilirubin AST 46 H ALT 78 H Alkaline Phosphatase 172 H Lactate Dehydrogenase Total Creatine Kinase C-Reactive Protein Total Protein 6.0 L Albumin 2.8 L Triglycerides 156 H Arterial Blood Glucose 254 H Arterial Blood Ionized Calcium 4.4 L Ur Specific [place] Urine WBC (Auto) Vancomycin Trough Coronavirus (PCR) 12/05/20 12/05/20 12/05/20 11:22 17:26 23:38 WBC RBC Hgb Hct MCHC RDW Plt Count Lymph % (Auto) [place] % (Auto) Lymph # (Auto) [place] # (Auto) Baso # (Auto) Seg Neutrophils % Seg Neuts % (Manual) Lymphocytes % (Manual) Nucleated RBC % Seg Neutrophils # Seg Neutrophils # Man Lymphocytes # (Manual) D-Dimer ABG pH POC ABG pCO2 POC ABG pO2 ABG pO2 ABG HCO3 ABG O2 Saturation ABG Base Excess ABG Hemoglobin ABG Oxyhemoglobin ABG Sodium ABG Potassium ABG Chloride ABG Glucose Oxyhemoglobin Carboxyhemoglobin Sodium Potassium Chloride Carbon Dioxide BUN Creatinine Glucose POC Glucose 212 H 157 H 204 H Hemoglobin A1c Lactic Acid Calcium Magnesium Ferritin Total Bilirubin AST ALT Alkaline Phosphatase Lactate Dehydrogenase Total Creatine Kinase C-Reactive Protein Total Protein Albumin Triglycerides Arterial Blood Glucose Arterial Blood Ionized Calcium Ur Specific [place] Urine WBC (Auto) Vancomycin Trough Coronavirus (PCR) 12/06/20 12/06/20 12/06/20 04:31 04:31 05:12 WBC 17.0 H RBC 3.63 L Hgb 10.8 L D Hct 32.6 L D MCHC RDW Plt Count Lymph % (Auto) [place] % (Auto) Lymph # (Auto) [place] # (Auto) Baso # (Auto) Seg Neutrophils % Seg Neuts % (Manual) Lymphocytes % (Manual) Nucleated RBC % Seg Neutrophils # Seg Neutrophils # Man Lymphocytes # (Manual) D-Dimer ABG pH POC ABG pCO2 85.9 H POC ABG pO2 57.6 L ABG pO2 ABG HCO3 ABG O2 Saturation ABG Base Excess ABG Hemoglobin ABG Oxyhemoglobin ABG Sodium 131.2 L ABG Potassium 4.8 H ABG Chloride 86.0 L ABG Glucose 200 H Oxyhemoglobin Carboxyhemoglobin Sodium 134 L Potassium 5.1 H Chloride 88.4 L Carbon Dioxide 47 H* BUN 23 H Creatinine 0.3 L Glucose 206 H POC Glucose Hemoglobin A1c Lactic Acid Calcium 8.3 L Magnesium Ferritin Total Bilirubin AST 48 H ALT 91 H Alkaline Phosphatase 140 H Lactate Dehydrogenase Total Creatine Kinase C-Reactive Protein Total Protein 5.7 L Albumin 2.6 L Triglycerides Arterial Blood Glucose 200 H Arterial Blood Ionized Calcium 4.4 L Ur Specific [place] Urine WBC (Auto) Vancomycin Trough Coronavirus (PCR) 12/06/20 12/06/20 12/06/20 05:24 12:18 16:45 WBC RBC Hgb Hct MCHC RDW Plt Count Lymph % (Auto) [place] % (Auto) Lymph # (Auto) [place] # (Auto) Baso # (Auto) Seg Neutrophils % Seg Neuts % (Manual) Lymphocytes % (Manual) Nucleated RBC % Seg Neutrophils # Seg Neutrophils # Man Lymphocytes # (Manual) D-Dimer ABG pH POC ABG pCO2 POC ABG pO2 ABG pO2 ABG HCO3 ABG O2 Saturation ABG Base Excess ABG Hemoglobin ABG Oxyhemoglobin ABG Sodium ABG Potassium ABG Chloride ABG Glucose Oxyhemoglobin Carboxyhemoglobin Sodium Potassium Chloride Carbon Dioxide BUN Creatinine Glucose POC Glucose 186 H 187 H 150 H Hemoglobin A1c Lactic Acid Calcium Magnesium Ferritin Total Bilirubin AST ALT Alkaline Phosphatase Lactate Dehydrogenase Total Creatine Kinase C-Reactive Protein Total Protein Albumin Triglycerides Arterial Blood Glucose Arterial Blood Ionized Calcium Ur Specific [place] Urine WBC (Auto) Vancomycin Trough Coronavirus (PCR) 12/06/20 12/07/20 12/07/20 23:43 05:20 05:21 WBC RBC Hgb Hct MCHC RDW Plt Count Lymph % (Auto) [place] % (Auto) Lymph # (Auto) [place] # (Auto) Baso # (Auto) Seg Neutrophils % Seg Neuts % (Manual) Lymphocytes % (Manual) Nucleated RBC % Seg Neutrophils # Seg Neutrophils # Man Lymphocytes # (Manual) D-Dimer ABG pH POC ABG pCO2 POC ABG pO2 ABG pO2 48.4 L ABG HCO3 50.8 H ABG O2 Saturation 86.2 L ABG Base Excess 22.4 H ABG Hemoglobin 11.0 L ABG Oxyhemoglobin ABG Sodium ABG Potassium ABG Chloride ABG Glucose Oxyhemoglobin 84.0 L Carboxyhemoglobin Sodium Potassium Chloride Carbon Dioxide BUN Creatinine Glucose POC Glucose 153 H 107 H Hemoglobin A1c Lactic Acid Calcium Magnesium Ferritin Total Bilirubin AST ALT Alkaline Phosphatase Lactate Dehydrogenase Total Creatine Kinase C-Reactive Protein Total Protein Albumin Triglycerides Arterial Blood Glucose Arterial Blood Ionized Calcium Ur Specific [place] Urine WBC (Auto) Vancomycin Trough Coronavirus (PCR) 12/07/20 12/07/20 12/07/20 13:20 14:28 17:35 WBC RBC Hgb Hct MCHC RDW Plt Count Lymph % (Auto) [place] % (Auto) Lymph # (Auto) [place] # (Auto) Baso # (Auto) Seg Neutrophils % Seg Neuts % (Manual) Lymphocytes % (Manual) Nucleated RBC % Seg Neutrophils # Seg Neutrophils # Man Lymphocytes # (Manual) D-Dimer ABG pH POC ABG pCO2 74.1 H POC ABG pO2 68.5 L ABG pO2 ABG HCO3 ABG O2 Saturation ABG Base Excess ABG Hemoglobin 10.7 L ABG Oxyhemoglobin 91.9 L ABG Sodium 132.2 L ABG Potassium 4.7 H ABG Chloride 88.0 L ABG Glucose 138 H Oxyhemoglobin Carboxyhemoglobin Sodium 134 L Potassium Chloride 87.4 L Carbon Dioxide 49 H* BUN Creatinine 0.2 L Glucose 132 H POC Glucose 176 H Hemoglobin A1c Lactic Acid Calcium 7.7 L Magnesium Ferritin Total Bilirubin AST ALT Alkaline Phosphatase Lactate Dehydrogenase Total Creatine Kinase C-Reactive Protein Total Protein Albumin Triglycerides Arterial Blood Glucose 138 H Arterial Blood Ionized Calcium 4.0 L Ur Specific [place] Urine WBC (Auto) Vancomycin Trough Coronavirus (PCR) 12/07/20 12/08/20 12/08/20 23:44 04:12 05:29 WBC RBC Hgb Hct MCHC RDW Plt Count Lymph % (Auto) [place] % (Auto) Lymph # (Auto) [place] # (Auto) Baso # (Auto) Seg Neutrophils % Seg Neuts % (Manual) Lymphocytes % (Manual) Nucleated RBC % Seg Neutrophils # Seg Neutrophils # Man Lymphocytes # (Manual) D-Dimer ABG pH POC ABG pCO2 POC ABG pO2 ABG pO2 69.7 L ABG HCO3 50.1 H ABG O2 Saturation ABG Base Excess 21.6 H ABG Hemoglobin 10.9 L ABG Oxyhemoglobin ABG Sodium ABG Potassium ABG Chloride ABG Glucose Oxyhemoglobin 93.2 L Carboxyhemoglobin Sodium Potassium Chloride Carbon Dioxide BUN Creatinine Glucose POC Glucose 143 H 143 H Hemoglobin A1c Lactic Acid Calcium Magnesium Ferritin Total Bilirubin AST ALT Alkaline Phosphatase Lactate Dehydrogenase Total Creatine Kinase C-Reactive Protein Total Protein Albumin Triglycerides Arterial Blood Glucose Arterial Blood Ionized Calcium Ur Specific [place] Urine WBC (Auto) Vancomycin Trough Coronavirus (PCR) 12/08/20 12/08/20 12/09/20 06:10 06:10 04:24 WBC 12.0 H RBC 3.18 L Hgb 9.5 L Hct 28.9 L MCHC RDW Plt Count Lymph % (Auto) [place] % (Auto) Lymph # (Auto) [place] # (Auto) Baso # (Auto) Seg Neutrophils % Seg Neuts % (Manual) 95.0 H Lymphocytes % (Manual) 3.0 L Nucleated RBC % Seg Neutrophils # Seg Neutrophils # Man 11.4 H Lymphocytes # (Manual) 0.4 L D-Dimer ABG pH POC ABG pCO2 76.2 H POC ABG pO2 52.8 L ABG pO2 ABG HCO3 ABG O2 Saturation ABG Base Excess ABG Hemoglobin 11.7 L ABG Oxyhemoglobin ABG Sodium 132.0 L ABG Potassium ABG Chloride 87.0 L ABG Glucose 118 H Oxyhemoglobin Carboxyhemoglobin Sodium 133 L Potassium Chloride 86.3 L Carbon Dioxide 53 H* BUN Creatinine 0.2 L Glucose 156 H POC Glucose Hemoglobin A1c Lactic Acid Calcium 7.6 L Magnesium Ferritin Total Bilirubin AST ALT Alkaline Phosphatase Lactate Dehydrogenase Total Creatine Kinase C-Reactive Protein Total Protein Albumin Triglycerides Arterial Blood Glucose 118 H Arterial Blood Ionized Calcium 4.2 L Ur Specific [place] Urine WBC (Auto) Vancomycin Trough Coronavirus (PCR) 12/09/20 12/09/20 12/09/20 05:44 06:40 06:40 WBC 13.5 H RBC 3.28 L Hgb 9.7 L Hct 29.9 L MCHC RDW Plt Count Lymph % (Auto) [place] % (Auto) Lymph # (Auto) [place] # (Auto) Baso # (Auto) Seg Neutrophils % Seg Neuts % (Manual) Lymphocytes % (Manual) Nucleated RBC % Seg Neutrophils # Seg Neutrophils # Man Lymphocytes # (Manual) D-Dimer ABG pH POC ABG pCO2 POC ABG pO2 ABG pO2 ABG HCO3 ABG O2 Saturation ABG Base Excess ABG Hemoglobin ABG Oxyhemoglobin ABG Sodium ABG Potassium ABG Chloride ABG Glucose Oxyhemoglobin Carboxyhemoglobin Sodium 135 L Potassium Chloride 89.5 L Carbon Dioxide 52 H* BUN Creatinine 0.3 L Glucose 114 H POC Glucose 117 H Hemoglobin A1c Lactic Acid Calcium 7.6 L Magnesium Ferritin Total Bilirubin AST ALT Alkaline Phosphatase Lactate Dehydrogenase Total Creatine Kinase C-Reactive Protein Total Protein Albumin Triglycerides Arterial Blood Glucose Arterial Blood Ionized Calcium Ur Specific [place] Urine WBC (Auto) Vancomycin Trough Coronavirus (PCR) 12/09/20 12/09/20 12/10/20 16:42 21:11 04:28 WBC RBC Hgb Hct MCHC RDW Plt Count Lymph % (Auto) [place] % (Auto) Lymph # (Auto) [place] # (Auto) Baso # (Auto) Seg Neutrophils % Seg Neuts % (Manual) Lymphocytes % (Manual) Nucleated RBC % Seg Neutrophils # Seg Neutrophils # Man Lymphocytes # (Manual) D-Dimer ABG pH POC ABG pCO2 72.5 H 69.4 H 76.9 H POC ABG pO2 50.4 L 80.6 L 60.2 L ABG pO2 ABG HCO3 ABG O2 Saturation ABG Base Excess ABG Hemoglobin 10.4 L 10.7 L 10 L ABG Oxyhemoglobin 84.3 L 89.7 L ABG Sodium 133.7 L 133.7 L 133.8 L ABG Potassium ABG Chloride 90.0 L 91.0 L 91.0 L ABG Glucose 116 H 96 H 57 L Oxyhemoglobin Carboxyhemoglobin 0.4 L Sodium Potassium Chloride Carbon Dioxide BUN Creatinine Glucose POC Glucose Hemoglobin A1c Lactic Acid Calcium Magnesium Ferritin Total Bilirubin AST ALT Alkaline Phosphatase Lactate Dehydrogenase Total Creatine Kinase C-Reactive Protein Total Protein Albumin Triglycerides Arterial Blood Glucose 116 H 96 H 57 L Arterial Blood Ionized Calcium 4.2 L 4.3 L 4.2 L Ur Specific [place] Urine WBC (Auto) Vancomycin Trough Coronavirus (PCR) 12/10/20 12/10/20 12/10/20 05:09 05:41 11:50 WBC RBC Hgb Hct MCHC RDW Plt Count Lymph % (Auto) [place] % (Auto) Lymph # (Auto) [place] # (Auto) Baso # (Auto) Seg Neutrophils % Seg Neuts % (Manual) Lymphocytes % (Manual) Nucleated RBC % Seg Neutrophils # Seg Neutrophils # Man Lymphocytes # (Manual) D-Dimer ABG pH POC ABG pCO2 POC ABG pO2 ABG pO2 ABG HCO3 ABG O2 Saturation ABG Base Excess ABG Hemoglobin ABG Oxyhemoglobin ABG Sodium ABG Potassium ABG Chloride ABG Glucose Oxyhemoglobin Carboxyhemoglobin Sodium Potassium Chloride Carbon Dioxide BUN Creatinine Glucose POC Glucose 41 L 138 H 106 H Hemoglobin A1c Lactic Acid Calcium Magnesium Ferritin Total Bilirubin AST ALT Alkaline Phosphatase Lactate Dehydrogenase Total Creatine Kinase C-Reactive Protein Total Protein Albumin Triglycerides Arterial Blood Glucose Arterial Blood Ionized Calcium Ur Specific [place] Urine WBC (Auto) Vancomycin Trough Coronavirus (PCR) 12/10/20 12/10/20 12/11/20 17:34 23:25 04:06 WBC RBC Hgb Hct MCHC RDW Plt Count Lymph % (Auto) [place] % (Auto) Lymph # (Auto) [place] # (Auto) Baso # (Auto) Seg Neutrophils % Seg Neuts % (Manual) Lymphocytes % (Manual) Nucleated RBC % Seg Neutrophils # Seg Neutrophils # Man Lymphocytes # (Manual) D-Dimer ABG pH POC ABG pCO2 71.0 H POC ABG pO2 56.8 L ABG pO2 ABG HCO3 ABG O2 Saturation ABG Base Excess ABG Hemoglobin 10.1 L ABG Oxyhemoglobin 88.5 L ABG Sodium 132.3 L ABG Potassium ABG Chloride 91.0 L ABG Glucose 168 H Oxyhemoglobin Carboxyhemoglobin Sodium Potassium Chloride Carbon Dioxide BUN Creatinine Glucose POC Glucose 121 H 167 H Hemoglobin A1c Lactic Acid Calcium Magnesium Ferritin Total Bilirubin AST ALT Alkaline Phosphatase Lactate Dehydrogenase Total Creatine Kinase C-Reactive Protein Total Protein Albumin Triglycerides Arterial Blood Glucose 168 H Arterial Blood Ionized Calcium 4.1 L Ur Specific [place] Urine WBC (Auto) Vancomycin Trough Coronavirus (PCR) 12/11/20 12/11/20 12/11/20 05:21 11:44 15:40 WBC RBC Hgb Hct MCHC RDW Plt Count Lymph % (Auto) [place] % (Auto) Lymph # (Auto) [place] # (Auto) Baso # (Auto) Seg Neutrophils % Seg Neuts % (Manual) Lymphocytes % (Manual) Nucleated RBC % Seg Neutrophils # Seg Neutrophils # Man Lymphocytes # (Manual) D-Dimer ABG pH 7.454 H POC ABG pCO2 58.6 H POC ABG pO2 50.7 L ABG pO2 ABG HCO3 ABG O2 Saturation ABG Base Excess ABG Hemoglobin 10.1 L ABG Oxyhemoglobin 86.2 L ABG Sodium 131.2 L ABG Potassium ABG Chloride 92.0 L ABG Glucose 197 H Oxyhemoglobin Carboxyhemoglobin Sodium Potassium Chloride Carbon Dioxide BUN Creatinine Glucose POC Glucose 149 H 202 H Hemoglobin A1c Lactic Acid Calcium Magnesium Ferritin Total Bilirubin AST ALT Alkaline Phosphatase Lactate Dehydrogenase Total Creatine Kinase C-Reactive Protein Total Protein Albumin Triglycerides Arterial Blood Glucose 197 H Arterial Blood Ionized Calcium 4.2 L Ur Specific [place] Urine WBC (Auto) Vancomycin Trough Coronavirus (PCR) 12/11/20 12/11/20 12/12/20 17:09 23:16 05:09 WBC RBC Hgb Hct MCHC RDW Plt Count Lymph % (Auto) [place] % (Auto) Lymph # (Auto) [place] # (Auto) Baso # (Auto) Seg Neutrophils % Seg Neuts % (Manual) Lymphocytes % (Manual) Nucleated RBC % Seg Neutrophils # Seg Neutrophils # Man Lymphocytes # (Manual) D-Dimer ABG pH POC ABG pCO2 63.1 H POC ABG pO2 62.6 L ABG pO2 ABG HCO3 ABG O2 Saturation ABG Base Excess ABG Hemoglobin 10.3 L ABG Oxyhemoglobin ABG Sodium 130.3 L ABG Potassium 4.6 H ABG Chloride 92.0 L ABG Glucose 215 H Oxyhemoglobin Carboxyhemoglobin Sodium Potassium Chloride Carbon Dioxide BUN Creatinine Glucose POC Glucose 181 H 192 H Hemoglobin A1c Lactic Acid Calcium Magnesium Ferritin Total Bilirubin AST ALT Alkaline Phosphatase Lactate Dehydrogenase Total Creatine Kinase C-Reactive Protein Total Protein Albumin Triglycerides Arterial Blood Glucose 215 H Arterial Blood Ionized Calcium 4.4 L Ur Specific [place] Urine WBC (Auto) Vancomycin Trough Coronavirus (PCR) 12/12/20 12/12/20 12/12/20 05:16 05:47 11:41 WBC RBC Hgb Hct MCHC RDW Plt Count Lymph % (Auto) [place] % (Auto) Lymph # (Auto) [place] # (Auto) Baso # (Auto) Seg Neutrophils % Seg Neuts % (Manual) Lymphocytes % (Manual) Nucleated RBC % Seg Neutrophils # Seg Neutrophils # Man Lymphocytes # (Manual) D-Dimer ABG pH POC ABG pCO2 POC ABG pO2 ABG pO2 ABG HCO3 ABG O2 Saturation ABG Base Excess ABG Hemoglobin ABG Oxyhemoglobin ABG Sodium ABG Potassium ABG Chloride ABG Glucose Oxyhemoglobin Carboxyhemoglobin Sodium Potassium Chloride Carbon Dioxide BUN Creatinine Glucose POC Glucose 208 H 218 H Hemoglobin A1c Lactic Acid Calcium Magnesium Ferritin Total Bilirubin AST ALT Alkaline Phosphatase Lactate Dehydrogenase Total Creatine Kinase C-Reactive Protein Total Protein Albumin Triglycerides 150 H Arterial Blood Glucose Arterial Blood Ionized Calcium Ur Specific [place] Urine WBC (Auto) Vancomycin Trough Coronavirus (PCR) 12/12/20 12/12/20 12/13/20 17:05 23:18 03:36 WBC RBC Hgb Hct MCHC RDW Plt Count Lymph % (Auto) [place] % (Auto) Lymph # (Auto) [place] # (Auto) Baso # (Auto) Seg Neutrophils % Seg Neuts % (Manual) Lymphocytes % (Manual) Nucleated RBC % Seg Neutrophils # Seg Neutrophils # Man Lymphocytes # (Manual) D-Dimer ABG pH POC ABG pCO2 61.5 H POC ABG pO2 77.6 L ABG pO2 ABG HCO3 ABG O2 Saturation ABG Base Excess ABG Hemoglobin 10.2 L ABG Oxyhemoglobin ABG Sodium 127.5 L ABG Potassium ABG Chloride 91.0 L ABG Glucose 232 H Oxyhemoglobin Carboxyhemoglobin Sodium Potassium Chloride Carbon Dioxide BUN Creatinine Glucose POC Glucose 187 H 176 H Hemoglobin A1c Lactic Acid Calcium Magnesium Ferritin Total Bilirubin AST ALT Alkaline Phosphatase Lactate Dehydrogenase Total Creatine Kinase C-Reactive Protein Total Protein Albumin Triglycerides Arterial Blood Glucose 232 H Arterial Blood Ionized Calcium 4.2 L Ur Specific [place] Urine WBC (Auto) Vancomycin Trough Coronavirus (PCR) 12/13/20 12/13/20 12/13/20 05:13 10:00 11:30 WBC RBC 3.50 L Hgb 10.5 L Hct 31.9 L MCHC RDW Plt Count Lymph % (Auto) [place] % (Auto) Lymph # (Auto) [place] # (Auto) Baso # (Auto) Seg Neutrophils % Seg Neuts % (Manual) 96.0 H Lymphocytes % (Manual) Nucleated RBC % Seg Neutrophils # Seg Neutrophils # Man 9.2 H Lymphocytes # (Manual) 0.0 L D-Dimer ABG pH POC ABG pCO2 POC ABG pO2 ABG pO2 ABG HCO3 ABG O2 Saturation ABG Base Excess ABG Hemoglobin ABG Oxyhemoglobin ABG Sodium ABG Potassium ABG Chloride ABG Glucose Oxyhemoglobin Carboxyhemoglobin Sodium Potassium Chloride Carbon Dioxide BUN Creatinine Glucose POC Glucose 204 H Hemoglobin A1c Lactic Acid Calcium Magnesium Ferritin Total Bilirubin AST ALT Alkaline Phosphatase Lactate Dehydrogenase Total Creatine Kinase C-Reactive Protein Total Protein Albumin Triglycerides Arterial Blood Glucose Arterial Blood Ionized Calcium Ur Specific [place] Urine WBC (Auto) Vancomycin Trough Coronavirus (PCR) Positive A 12/13/20 12/13/20 12/13/20 11:30 12:01 18:04 WBC RBC Hgb Hct MCHC RDW Plt Count Lymph % (Auto) [place] % (Auto) Lymph # (Auto) [place] # (Auto) Baso # (Auto) Seg Neutrophils % Seg Neuts % (Manual) Lymphocytes % (Manual) Nucleated RBC % Seg Neutrophils # Seg Neutrophils # Man Lymphocytes # (Manual) D-Dimer ABG pH POC ABG pCO2 POC ABG pO2 ABG pO2 ABG HCO3 ABG O2 Saturation ABG Base Excess ABG Hemoglobin ABG Oxyhemoglobin ABG Sodium ABG Potassium ABG Chloride ABG Glucose Oxyhemoglobin Carboxyhemoglobin Sodium 132 L Potassium Chloride 90.1 L Carbon Dioxide 41 H* D BUN Creatinine 0.2 L Glucose 249 H POC Glucose 224 H 172 H Hemoglobin A1c Lactic Acid Calcium 7.4 L Magnesium Ferritin Total Bilirubin AST ALT 61 H Alkaline Phosphatase Lactate Dehydrogenase Total Creatine Kinase C-Reactive Protein Total Protein 5.7 L Albumin 2.3 L Triglycerides Arterial Blood Glucose Arterial Blood Ionized Calcium Ur Specific [place] Urine WBC (Auto) Vancomycin Trough Coronavirus (PCR) 12/13/20 12/14/20 12/14/20 23:37 04:05 04:35 WBC RBC 3.37 L Hgb 10.1 L Hct 30.7 L MCHC RDW 15.4 H Plt Count Lymph % (Auto) [place] % (Auto) Lymph # (Auto) [place] # (Auto) Baso # (Auto) Seg Neutrophils % Seg Neuts % (Manual) 93.0 H Lymphocytes % (Manual) 3.0 L Nucleated RBC % Seg Neutrophils # Seg Neutrophils # Man 7.8 H Lymphocytes # (Manual) 0.3 L D-Dimer ABG pH POC ABG pCO2 72.2 H POC ABG pO2 61.5 L ABG pO2 ABG HCO3 ABG O2 Saturation ABG Base Excess ABG Hemoglobin ABG Oxyhemoglobin 89.9 L ABG Sodium 131.4 L ABG Potassium ABG Chloride 91.0 L ABG Glucose 205 H Oxyhemoglobin Carboxyhemoglobin Sodium Potassium Chloride Carbon Dioxide BUN Creatinine Glucose POC Glucose 200 H Hemoglobin A1c Lactic Acid Calcium Magnesium Ferritin Total Bilirubin AST ALT Alkaline Phosphatase Lactate Dehydrogenase Total Creatine Kinase C-Reactive Protein Total Protein Albumin Triglycerides Arterial Blood Glucose 205 H Arterial Blood Ionized Calcium 4.3 L Ur Specific [place] Urine WBC (Auto) Vancomycin Trough Coronavirus (PCR) 12/14/20 12/14/20 12/14/20 04:35 05:12 11:31 WBC RBC Hgb Hct MCHC RDW Plt Count Lymph % (Auto) [place] % (Auto) Lymph # (Auto) [place] # (Auto) Baso # (Auto) Seg Neutrophils % Seg Neuts % (Manual) Lymphocytes % (Manual) Nucleated RBC % Seg Neutrophils # Seg Neutrophils # Man Lymphocytes # (Manual) D-Dimer ABG pH POC ABG pCO2 POC ABG pO2 ABG pO2 ABG HCO3 ABG O2 Saturation ABG Base Excess ABG Hemoglobin ABG Oxyhemoglobin ABG Sodium ABG Potassium ABG Chloride ABG Glucose Oxyhemoglobin Carboxyhemoglobin Sodium 135 L Potassium Chloride 92.5 L Carbon Dioxide 38 H BUN Creatinine 0.2 L Glucose 184 H POC Glucose 176 H 212 H Hemoglobin A1c Lactic Acid Calcium 7.7 L Magnesium Ferritin Total Bilirubin AST ALT Alkaline Phosphatase Lactate Dehydrogenase Total Creatine Kinase C-Reactive Protein Total Protein Albumin Triglycerides Arterial Blood Glucose Arterial Blood Ionized Calcium Ur Specific [place] Urine WBC (Auto) Vancomycin Trough Coronavirus (PCR) 12/14/20 12/14/20 12/15/20 17:30 23:30 03:19 WBC RBC Hgb Hct MCHC RDW Plt Count Lymph % (Auto) [place] % (Auto) Lymph # (Auto) [place] # (Auto) Baso # (Auto) Seg Neutrophils % Seg Neuts % (Manual) Lymphocytes % (Manual) Nucleated RBC % Seg Neutrophils # Seg Neutrophils # Man Lymphocytes # (Manual) D-Dimer ABG pH POC ABG pCO2 62.0 H POC ABG pO2 66.0 L ABG pO2 ABG HCO3 ABG O2 Saturation ABG Base Excess ABG Hemoglobin 10.3 L ABG Oxyhemoglobin ABG Sodium 130.5 L ABG Potassium ABG Chloride 91.0 L ABG Glucose 166 H Oxyhemoglobin Carboxyhemoglobin Sodium Potassium Chloride Carbon Dioxide BUN Creatinine Glucose POC Glucose 222 H 176 H Hemoglobin A1c Lactic Acid Calcium Magnesium Ferritin Total Bilirubin AST ALT Alkaline Phosphatase Lactate Dehydrogenase Total Creatine Kinase C-Reactive Protein Total Protein Albumin Triglycerides Arterial Blood Glucose 166 H Arterial Blood Ionized Calcium 4.4 L Ur Specific [place] Urine WBC (Auto) Vancomycin Trough Coronavirus (PCR) 12/15/20 12/15/20 12/15/20 05:24 11:39 17:30 WBC RBC Hgb Hct MCHC RDW Plt Count Lymph % (Auto) [place] % (Auto) Lymph # (Auto) [place] # (Auto) Baso # (Auto) Seg Neutrophils % Seg Neuts % (Manual) Lymphocytes % (Manual) Nucleated RBC % Seg Neutrophils # Seg Neutrophils # Man Lymphocytes # (Manual) D-Dimer ABG pH POC ABG pCO2 POC ABG pO2 ABG pO2 ABG HCO3 ABG O2 Saturation ABG Base Excess ABG Hemoglobin ABG Oxyhemoglobin ABG Sodium ABG Potassium ABG Chloride ABG Glucose Oxyhemoglobin Carboxyhemoglobin Sodium Potassium Chloride Carbon Dioxide BUN Creatinine Glucose POC Glucose 160 H 140 H 246 H Hemoglobin A1c Lactic Acid Calcium Magnesium Ferritin Total Bilirubin AST ALT Alkaline Phosphatase Lactate Dehydrogenase Total Creatine Kinase C-Reactive Protein Total Protein Albumin Triglycerides Arterial Blood Glucose Arterial Blood Ionized Calcium Ur Specific [place] Urine WBC (Auto) Vancomycin Trough Coronavirus (PCR) 12/15/20 12/16/20 12/16/20 23:42 03:54 04:46 WBC RBC 3.48 L Hgb 10.6 L Hct 31.5 L MCHC RDW 15.8 H Plt Count Lymph % (Auto) [place] % (Auto) Lymph # (Auto) [place] # (Auto) Baso # (Auto) Seg Neutrophils % Seg Neuts % (Manual) Lymphocytes % (Manual) Nucleated RBC % Seg Neutrophils # Seg Neutrophils # Man Lymphocytes # (Manual) D-Dimer ABG pH POC ABG pCO2 63.6 H POC ABG pO2 55.0 L ABG pO2 ABG HCO3 ABG O2 Saturation ABG Base Excess ABG Hemoglobin 11.1 L ABG Oxyhemoglobin 87.3 L ABG Sodium 130.7 L ABG Potassium ABG Chloride 89.0 L ABG Glucose 211 H Oxyhemoglobin Carboxyhemoglobin Sodium Potassium Chloride Carbon Dioxide BUN Creatinine Glucose POC Glucose 139 H Hemoglobin A1c Lactic Acid Calcium Magnesium Ferritin Total Bilirubin AST ALT Alkaline Phosphatase Lactate Dehydrogenase Total Creatine Kinase C-Reactive Protein Total Protein Albumin Triglycerides Arterial Blood Glucose 211 H Arterial Blood Ionized Calcium 4.3 L Ur Specific [place] Urine WBC (Auto) Vancomycin Trough Coronavirus (PCR) 12/16/20 12/16/20 12/16/20 04:46 05:34 11:40 WBC RBC Hgb Hct MCHC RDW Plt Count Lymph % (Auto) [place] % (Auto) Lymph # (Auto) [place] # (Auto) Baso # (Auto) Seg Neutrophils % Seg Neuts % (Manual) Lymphocytes % (Manual) Nucleated RBC % Seg Neutrophils # Seg Neutrophils # Man Lymphocytes # (Manual) D-Dimer ABG pH POC ABG pCO2 POC ABG pO2 ABG pO2 ABG HCO3 ABG O2 Saturation ABG Base Excess ABG Hemoglobin ABG Oxyhemoglobin ABG Sodium ABG Potassium ABG Chloride ABG Glucose Oxyhemoglobin Carboxyhemoglobin Sodium 134 L Potassium Chloride 89.7 L Carbon Dioxide 38 H BUN Creatinine < 0.2 L Glucose 203 H POC Glucose 155 H 239 H Hemoglobin A1c Lactic Acid Calcium 7.5 L Magnesium Ferritin Total Bilirubin AST ALT Alkaline Phosphatase Lactate Dehydrogenase Total Creatine Kinase C-Reactive Protein Total Protein Albumin Triglycerides Arterial Blood Glucose Arterial Blood Ionized Calcium Ur Specific [place] Urine WBC (Auto) Vancomycin Trough Coronavirus (PCR) 12/16/20 12/16/20 12/17/20 17:42 23:45 03:59 WBC RBC Hgb Hct MCHC RDW Plt Count Lymph % (Auto) [place] % (Auto) Lymph # (Auto) [place] # (Auto) Baso # (Auto) Seg Neutrophils % Seg Neuts % (Manual) Lymphocytes % (Manual) Nucleated RBC % Seg Neutrophils # Seg Neutrophils # Man Lymphocytes # (Manual) D-Dimer ABG pH POC ABG pCO2 71.9 H POC ABG pO2 57.5 L ABG pO2 ABG HCO3 ABG O2 Saturation ABG Base Excess ABG Hemoglobin 10.8 L ABG Oxyhemoglobin 87.7 L ABG Sodium 131.5 L ABG Potassium ABG Chloride 90.0 L ABG Glucose 199 H Oxyhemoglobin Carboxyhemoglobin Sodium Potassium Chloride Carbon Dioxide BUN Creatinine Glucose POC Glucose 228 H 187 H Hemoglobin A1c Lactic Acid Calcium Magnesium Ferritin Total Bilirubin AST ALT Alkaline Phosphatase Lactate Dehydrogenase Total Creatine Kinase C-Reactive Protein Total Protein Albumin Triglycerides Arterial Blood Glucose 199 H Arterial Blood Ionized Calcium 4.4 L Ur Specific [place] Urine WBC (Auto) Vancomycin Trough Coronavirus (PCR) 12/17/20 12/17/2012/17/21 05:35 11:55 12:40 WBC RBC Hgb Hct MCHC RDW Plt Count Lymph % (Auto) [place] % (Auto) Lymph # (Auto) [place] # (Auto) Baso # (Auto) Seg Neutrophils % Seg Neuts % (Manual) Lymphocytes % (Manual) Nucleated RBC % Seg Neutrophils # Seg Neutrophils # Man Lymphocytes # (Manual) D-Dimer ABG pH POC ABG pCO2 POC ABG pO2 ABG pO2 ABG HCO3 ABG O2 Saturation ABG Base Excess ABG Hemoglobin ABG Oxyhemoglobin ABG Sodium ABG Potassium ABG Chloride ABG Glucose Oxyhemoglobin Carboxyhemoglobin Sodium Potassium Chloride 95.2 L Carbon Dioxide 41 H* BUN Creatinine 0.2 L Glucose 138 H POC Glucose 159 H 181 H Hemoglobin A1c Lactic Acid Calcium 7.3 L Magnesium Ferritin Total Bilirubin AST ALT Alkaline Phosphatase Lactate Dehydrogenase Total Creatine Kinase C-Reactive Protein Total Protein Albumin Triglycerides Arterial Blood Glucose Arterial Blood Ionized Calcium Ur Specific [place] Urine WBC (Auto) Vancomycin Trough Coronavirus (PCR) 12/17/20 12/17/20 12/17/20 17:25 17:25 17:51 WBC RBC Hgb Hct MCHC RDW Plt Count Lymph % (Auto) [place] % (Auto) Lymph # (Auto) [place] # (Auto) Baso # (Auto) Seg Neutrophils % Seg Neuts % (Manual) Lymphocytes % (Manual) Nucleated RBC % Seg Neutrophils # Seg Neutrophils # Man Lymphocytes # (Manual) D-Dimer ABG pH POC ABG pCO2 POC ABG pO2 ABG pO2 ABG HCO3 ABG O2 Saturation ABG Base Excess ABG Hemoglobin ABG Oxyhemoglobin ABG Sodium ABG Potassium ABG Chloride ABG Glucose Oxyhemoglobin Carboxyhemoglobin Sodium 134 L Potassium Chloride 89.6 L Carbon Dioxide 44 H* BUN Creatinine 0.2 L Glucose 280 H POC Glucose 260 H Hemoglobin A1c Lactic Acid Calcium 8.0 L Magnesium 1.60 L Ferritin Total Bilirubin AST ALT Alkaline Phosphatase Lactate Dehydrogenase Total Creatine Kinase 47 L C-Reactive Protein Total Protein 6.2 L Albumin 2.1 L Triglycerides Arterial Blood Glucose Arterial Blood Ionized Calcium Ur Specific [place] Urine WBC (Auto) Vancomycin Trough Coronavirus (PCR) 12/18/20 12/18/20 12/18/20 00:12 03:56 04:32 WBC RBC 2.88 L Hgb 8.6 L Hct 26.0 L MCHC RDW 15.6 H Plt Count Lymph % (Auto) [place] % (Auto) Lymph # (Auto) [place] # (Auto) Baso # (Auto) Seg Neutrophils % Seg Neuts % (Manual) Lymphocytes % (Manual) Nucleated RBC % Seg Neutrophils # Seg Neutrophils # Man Lymphocytes # (Manual) D-Dimer ABG pH POC ABG pCO2 78.0 H POC ABG pO2 52.3 L ABG pO2 ABG HCO3 ABG O2 Saturation ABG Base Excess ABG Hemoglobin 11.7 L ABG Oxyhemoglobin 84.9 L ABG Sodium 131.6 L ABG Potassium ABG Chloride 89.0 L ABG Glucose 191 H Oxyhemoglobin Carboxyhemoglobin Sodium Potassium Chloride Carbon Dioxide BUN Creatinine Glucose POC Glucose 197 H Hemoglobin A1c Lactic Acid Calcium Magnesium Ferritin Total Bilirubin AST ALT Alkaline Phosphatase Lactate Dehydrogenase Total Creatine Kinase C-Reactive Protein Total Protein Albumin Triglycerides Arterial Blood Glucose 191 H Arterial Blood Ionized Calcium 4.4 L Ur Specific [place] Urine WBC (Auto) Vancomycin Trough Coronavirus (PCR) 12/18/20 12/18/20 12/18/20 04:32 05:19 08:27 WBC RBC Hgb Hct MCHC RDW Plt Count Lymph % (Auto) [place] % (Auto) Lymph # (Auto) [place] # (Auto) Baso # (Auto) Seg Neutrophils % Seg Neuts % (Manual) Lymphocytes % (Manual) Nucleated RBC % Seg Neutrophils # Seg Neutrophils # Man Lymphocytes # (Manual) D-Dimer ABG pH POC ABG pCO2 POC ABG pO2 ABG pO2 ABG HCO3 ABG O2 Saturation ABG Base Excess ABG Hemoglobin ABG Oxyhemoglobin ABG Sodium ABG Potassium ABG Chloride ABG Glucose Oxyhemoglobin Carboxyhemoglobin Sodium 134 L 131 L Potassium Chloride 89.5 L 89.0 L Carbon Dioxide 43 H* 41 H* BUN Creatinine < 0.2 L < 0.2 L Glucose 182 H 176 H POC Glucose 165 H Hemoglobin A1c Lactic Acid Calcium 8.1 L 7.5 L Magnesium Ferritin Total Bilirubin AST ALT Alkaline Phosphatase Lactate Dehydrogenase Total Creatine Kinase C-Reactive Protein Total Protein Albumin Triglycerides Arterial Blood Glucose Arterial Blood Ionized Calcium Ur Specific [place] Urine WBC (Auto) Vancomycin Trough Coronavirus (PCR) 12/18/20 12/18/20 12/18/20 11:37 17:26 23:19 WBC RBC Hgb Hct MCHC RDW Plt Count Lymph % (Auto) [place] % (Auto) Lymph # (Auto) [place] # (Auto) Baso # (Auto) Seg Neutrophils % Seg Neuts % (Manual) Lymphocytes % (Manual) Nucleated RBC % Seg Neutrophils # Seg Neutrophils # Man Lymphocytes # (Manual) D-Dimer ABG pH POC ABG pCO2 POC ABG pO2 ABG pO2 ABG HCO3 ABG O2 Saturation ABG Base Excess ABG Hemoglobin ABG Oxyhemoglobin ABG Sodium ABG Potassium ABG Chloride ABG Glucose Oxyhemoglobin Carboxyhemoglobin Sodium Potassium Chloride Carbon Dioxide BUN Creatinine Glucose POC Glucose 174 H 243 H 212 H Hemoglobin A1c Lactic Acid Calcium Magnesium Ferritin Total Bilirubin AST ALT Alkaline Phosphatase Lactate Dehydrogenase Total Creatine Kinase C-Reactive Protein Total Protein Albumin Triglycerides Arterial Blood Glucose Arterial Blood Ionized Calcium Ur Specific [place] Urine WBC (Auto) Vancomycin Trough Coronavirus (PCR) 12/19/20 12/19/20 12/19/20 03:41 05:26 11:56 WBC RBC Hgb Hct MCHC RDW Plt Count Lymph % (Auto) [place] % (Auto) Lymph # (Auto) [place] # (Auto) Baso # (Auto) Seg Neutrophils % Seg Neuts % (Manual) Lymphocytes % (Manual) Nucleated RBC % Seg Neutrophils # Seg Neutrophils # Man Lymphocytes # (Manual) D-Dimer ABG pH POC ABG pCO2 75.4 H POC ABG pO2 50.7 L ABG pO2 ABG HCO3 ABG O2 Saturation ABG Base Excess ABG Hemoglobin 10.4 L ABG Oxyhemoglobin 84.2 L ABG Sodium 131.1 L ABG Potassium ABG Chloride 89.0 L ABG Glucose 194 H Oxyhemoglobin Carboxyhemoglobin 1.6 H Sodium Potassium Chloride Carbon Dioxide BUN Creatinine Glucose POC Glucose 166 H 173 H Hemoglobin A1c Lactic Acid Calcium Magnesium Ferritin Total Bilirubin AST ALT Alkaline Phosphatase Lactate Dehydrogenase Total Creatine Kinase C-Reactive Protein Total Protein Albumin Triglycerides Arterial Blood Glucose 194 H Arterial Blood Ionized Calcium 4.3 L Ur Specific [place] Urine WBC (Auto) Vancomycin Trough Coronavirus (PCR) 12/19/20 12/19/20 12/19/20 18:17 23:39 Unknown WBC RBC Hgb Hct MCHC RDW Plt Count Lymph % (Auto) [place] % (Auto) Lymph # (Auto) [place] # (Auto) Baso # (Auto) Seg Neutrophils % Seg Neuts % (Manual) Lymphocytes % (Manual) Nucleated RBC % Seg Neutrophils # Seg Neutrophils # Man Lymphocytes # (Manual) D-Dimer ABG pH POC ABG pCO2 POC ABG pO2 ABG pO2 ABG HCO3 ABG O2 Saturation ABG Base Excess ABG Hemoglobin ABG Oxyhemoglobin ABG Sodium ABG Potassium ABG Chloride ABG Glucose Oxyhemoglobin Carboxyhemoglobin Sodium 133 L Potassium Chloride 89.9 L Carbon Dioxide 39 H BUN Creatinine 0.2 L Glucose 197 H POC Glucose 212 H 133 H Hemoglobin A1c Lactic Acid Calcium 7.6 L Magnesium Ferritin Total Bilirubin AST ALT Alkaline Phosphatase Lactate Dehydrogenase Total Creatine Kinase C-Reactive Protein Total Protein Albumin Triglycerides Arterial Blood Glucose Arterial Blood Ionized Calcium Ur Specific [place] Urine WBC (Auto) Vancomycin Trough Coronavirus (PCR) 12/20/20 12/20/20 12/20/20 03:26 04:00 04:00 WBC RBC 3.21 L Hgb 9.6 L Hct 29.2 L MCHC RDW 15.8 H Plt Count Lymph % (Auto) [place] % (Auto) Lymph # (Auto) [place] # (Auto) Baso # (Auto) Seg Neutrophils % Seg Neuts % (Manual) Lymphocytes % (Manual) Nucleated RBC % Seg Neutrophils # Seg Neutrophils # Man Lymphocytes # (Manual) D-Dimer ABG pH POC ABG pCO2 74.2 H POC ABG pO2 51.3 L ABG pO2 ABG HCO3 ABG O2 Saturation ABG Base Excess ABG Hemoglobin 10.0 L ABG Oxyhemoglobin ABG Sodium 128.9 L ABG Potassium ABG Chloride 87.0 L ABG Glucose 173 H Oxyhemoglobin Carboxyhemoglobin Sodium 132 L Potassium Chloride 86.0 L Carbon Dioxide 43 H* BUN Creatinine 0.2 L Glucose 193 H POC Glucose Hemoglobin A1c Lactic Acid Calcium 7.6 L Magnesium Ferritin Total Bilirubin AST ALT Alkaline Phosphatase Lactate Dehydrogenase Total Creatine Kinase C-Reactive Protein Total Protein Albumin Triglycerides Arterial Blood Glucose 173 H Arterial Blood Ionized Calcium 4.1 L Ur Specific [place] Urine WBC (Auto) Vancomycin Trough Coronavirus (PCR) 12/20/20 12/20/20 12/20/20 05:05 11:47 18:18 WBC RBC Hgb Hct MCHC RDW Plt Count Lymph % (Auto) [place] % (Auto) Lymph # (Auto) [place] # (Auto) Baso # (Auto) Seg Neutrophils % Seg Neuts % (Manual) Lymphocytes % (Manual) Nucleated RBC % Seg Neutrophils # Seg Neutrophils # Man Lymphocytes # (Manual) D-Dimer ABG pH POC ABG pCO2 POC ABG pO2 ABG pO2 ABG HCO3 ABG O2 Saturation ABG Base Excess ABG Hemoglobin ABG Oxyhemoglobin ABG Sodium ABG Potassium ABG Chloride ABG Glucose Oxyhemoglobin Carboxyhemoglobin Sodium Potassium Chloride Carbon Dioxide BUN Creatinine Glucose POC Glucose 171 H 238 H 205 H Hemoglobin A1c Lactic Acid Calcium Magnesium Ferritin Total Bilirubin AST ALT Alkaline Phosphatase Lactate Dehydrogenase Total Creatine Kinase C-Reactive Protein Total Protein Albumin Triglycerides Arterial Blood Glucose Arterial Blood Ionized Calcium Ur Specific [place] Urine WBC (Auto) Vancomycin Trough Coronavirus (PCR) 12/20/20 12/21/20 12/21/20 23:41 03:30 05:37 WBC RBC Hgb Hct MCHC RDW Plt Count Lymph % (Auto) [place] % (Auto) Lymph # (Auto) [place] # (Auto) Baso # (Auto) Seg Neutrophils % Seg Neuts % (Manual) Lymphocytes % (Manual) Nucleated RBC % Seg Neutrophils # Seg Neutrophils # Man Lymphocytes # (Manual) D-Dimer ABG pH POC ABG pCO2 73.4 H POC ABG pO2 63.0 L ABG pO2 ABG HCO3 ABG O2 Saturation ABG Base Excess ABG Hemoglobin 10.1 L ABG Oxyhemoglobin ABG Sodium 130.5 L ABG Potassium ABG Chloride 89.0 L ABG Glucose 171 H Oxyhemoglobin Carboxyhemoglobin Sodium Potassium Chloride Carbon Dioxide BUN Creatinine Glucose POC Glucose 167 H 152 H Hemoglobin A1c Lactic Acid Calcium Magnesium Ferritin Total Bilirubin AST ALT Alkaline Phosphatase Lactate Dehydrogenase Total Creatine Kinase C-Reactive Protein Total Protein Albumin Triglycerides Arterial Blood Glucose 171 H Arterial Blood Ionized Calcium 4.2 L Ur Specific [place] Urine WBC (Auto) Vancomycin Trough Coronavirus (PCR) 12/21/20 12/21/20 12/21/20 09:57 12:54 18:00 WBC RBC Hgb Hct MCHC RDW Plt Count Lymph % (Auto) [place] % (Auto) Lymph # (Auto) [place] # (Auto) Baso # (Auto) Seg Neutrophils % Seg Neuts % (Manual) Lymphocytes % (Manual) Nucleated RBC % Seg Neutrophils # Seg Neutrophils # Man Lymphocytes # (Manual) D-Dimer ABG pH POC ABG pCO2 POC ABG pO2 ABG pO2 ABG HCO3 ABG O2 Saturation ABG Base Excess ABG Hemoglobin ABG Oxyhemoglobin ABG Sodium ABG Potassium ABG Chloride ABG Glucose Oxyhemoglobin Carboxyhemoglobin Sodium 132 L Potassium Chloride 87.7 L Carbon Dioxide 42 H* BUN Creatinine 0.2 L Glucose 207 H POC Glucose 199 H 217 H Hemoglobin A1c Lactic Acid Calcium 7.7 L Magnesium Ferritin Total Bilirubin AST ALT Alkaline Phosphatase Lactate Dehydrogenase Total Creatine Kinase C-Reactive Protein Total Protein Albumin Triglycerides Arterial Blood Glucose Arterial Blood Ionized Calcium Ur Specific [place] Urine WBC (Auto) Vancomycin Trough Coronavirus (PCR) 12/21/20 12/22/20 12/22/20 Unknown 00:02 04:08 WBC RBC Hgb Hct MCHC RDW Plt Count Lymph % (Auto) [place] % (Auto) Lymph # (Auto) [place] # (Auto) Baso # (Auto) Seg Neutrophils % Seg Neuts % (Manual) Lymphocytes % (Manual) Nucleated RBC % Seg Neutrophils # Seg Neutrophils # Man Lymphocytes # (Manual) D-Dimer ABG pH POC ABG pCO2 67.6 H POC ABG pO2 57.3 L ABG pO2 ABG HCO3 ABG O2 Saturation ABG Base Excess ABG Hemoglobin ABG Oxyhemoglobin ABG Sodium 130.9 L ABG Potassium ABG Chloride 92.0 L ABG Glucose 163 H Oxyhemoglobin Carboxyhemoglobin Sodium Potassium Chloride Carbon Dioxide BUN Creatinine Glucose POC Glucose 172 H Hemoglobin A1c Lactic Acid Calcium Magnesium Ferritin Total Bilirubin AST ALT Alkaline Phosphatase Lactate Dehydrogenase Total Creatine Kinase C-Reactive Protein Total Protein Albumin Triglycerides Arterial Blood Glucose 163 H Arterial Blood Ionized Calcium 4.2 L Ur Specific [place] Urine WBC (Auto) 172.0 H Vancomycin Trough Coronavirus (PCR) 12/22/20 12/22/20 12/22/20 05:19 11:33 17:20 WBC RBC Hgb Hct MCHC RDW Plt Count Lymph % (Auto) [place] % (Auto) Lymph # (Auto) [place] # (Auto) Baso # (Auto) Seg Neutrophils % Seg Neuts % (Manual) Lymphocytes % (Manual) Nucleated RBC % Seg Neutrophils # Seg Neutrophils # Man Lymphocytes # (Manual) D-Dimer ABG pH POC ABG pCO2 POC ABG pO2 ABG pO2 ABG HCO3 ABG O2 Saturation ABG Base Excess ABG Hemoglobin ABG Oxyhemoglobin ABG Sodium ABG Potassium ABG Chloride ABG Glucose Oxyhemoglobin Carboxyhemoglobin Sodium Potassium Chloride Carbon Dioxide BUN Creatinine Glucose POC Glucose 151 H 181 H 166 H Hemoglobin A1c Lactic Acid Calcium Magnesium Ferritin Total Bilirubin AST ALT Alkaline Phosphatase Lactate Dehydrogenase Total Creatine Kinase C-Reactive Protein Total Protein Albumin Triglycerides Arterial Blood Glucose Arterial Blood Ionized Calcium Ur Specific [place] Urine WBC (Auto) Vancomycin Trough Coronavirus (PCR) 12/22/20 12/23/20 12/23/20 23:25 05:19 05:32 WBC RBC Hgb Hct MCHC RDW Plt Count Lymph % (Auto) [place] % (Auto) Lymph # (Auto) [place] # (Auto) Baso # (Auto) Seg Neutrophils % Seg Neuts % (Manual) Lymphocytes % (Manual) Nucleated RBC % Seg Neutrophils # Seg Neutrophils # Man Lymphocytes # (Manual) D-Dimer ABG pH POC ABG pCO2 67.7 H POC ABG pO2 53.7 L ABG pO2 ABG HCO3 ABG O2 Saturation ABG Base Excess ABG Hemoglobin 9.6 L ABG Oxyhemoglobin ABG Sodium 130.2 L ABG Potassium ABG Chloride 88.0 L ABG Glucose 195 H Oxyhemoglobin Carboxyhemoglobin Sodium Potassium Chloride Carbon Dioxide BUN Creatinine Glucose POC Glucose 121 H 167 H Hemoglobin A1c Lactic Acid Calcium Magnesium Ferritin Total Bilirubin AST ALT Alkaline Phosphatase Lactate Dehydrogenase Total Creatine Kinase C-Reactive Protein Total Protein Albumin Triglycerides Arterial Blood Glucose 195 H Arterial Blood Ionized Calcium 4.1 L Ur Specific [place] Urine WBC (Auto) Vancomycin Trough Coronavirus (PCR) 12/23/20 12/23/20 12/23/20 06:07 11:21 18:10 WBC RBC Hgb Hct MCHC RDW Plt Count Lymph % (Auto) [place] % (Auto) Lymph # (Auto) [place] # (Auto) Baso # (Auto) Seg Neutrophils % Seg Neuts % (Manual) Lymphocytes % (Manual) Nucleated RBC % Seg Neutrophils # Seg Neutrophils # Man Lymphocytes # (Manual) D-Dimer ABG pH POC ABG pCO2 POC ABG pO2 ABG pO2 ABG HCO3 ABG O2 Saturation ABG Base Excess ABG Hemoglobin ABG Oxyhemoglobin ABG Sodium ABG Potassium ABG Chloride ABG Glucose Oxyhemoglobin Carboxyhemoglobin Sodium 135 L Potassium Chloride 89.3 L Carbon Dioxide 43 H* BUN Creatinine 0.2 L Glucose 193 H POC Glucose 155 H 178 H Hemoglobin A1c Lactic Acid Calcium 7.4 L Magnesium Ferritin Total Bilirubin AST ALT Alkaline Phosphatase Lactate Dehydrogenase Total Creatine Kinase C-Reactive Protein Total Protein Albumin Triglycerides Arterial Blood Glucose Arterial Blood Ionized Calcium Ur Specific [place] Urine WBC (Auto) Vancomycin Trough Coronavirus (PCR) 12/23/20 12/24/20 12/24/20 23:21 04:49 05:00 WBC RBC Hgb Hct MCHC RDW Plt Count Lymph % (Auto) [place] % (Auto) Lymph # (Auto) [place] # (Auto) Baso # (Auto) Seg Neutrophils % Seg Neuts % (Manual) Lymphocytes % (Manual) Nucleated RBC % Seg Neutrophils # Seg Neutrophils # Man Lymphocytes # (Manual) D-Dimer ABG pH POC ABG pCO2 75.5 H POC ABG pO2 50.5 L ABG pO2 ABG HCO3 ABG O2 Saturation ABG Base Excess ABG Hemoglobin 8.8 L ABG Oxyhemoglobin 86.3 L ABG Sodium 131.6 L ABG Potassium ABG Chloride 88.0 L ABG Glucose 186 H Oxyhemoglobin Carboxyhemoglobin 2.1 H Sodium Potassium Chloride Carbon Dioxide BUN Creatinine Glucose POC Glucose 126 H Hemoglobin A1c Lactic Acid Calcium Magnesium Ferritin Total Bilirubin AST ALT Alkaline Phosphatase Lactate Dehydrogenase Total Creatine Kinase C-Reactive Protein Total Protein Albumin Triglycerides 486 H Arterial Blood Glucose 186 H Arterial Blood Ionized Calcium 4.0 L Ur Specific [place] Urine WBC (Auto) Vancomycin Trough Coronavirus (PCR) 12/24/20 12/24/20 12/24/20 05:19 11:57 16:44 WBC RBC Hgb Hct MCHC RDW Plt Count Lymph % (Auto) [place] % (Auto) Lymph # (Auto) [place] # (Auto) Baso # (Auto) Seg Neutrophils % Seg Neuts % (Manual) Lymphocytes % (Manual) Nucleated RBC % Seg Neutrophils # Seg Neutrophils # Man Lymphocytes # (Manual) D-Dimer ABG pH POC ABG pCO2 POC ABG pO2 ABG pO2 ABG HCO3 ABG O2 Saturation ABG Base Excess ABG Hemoglobin ABG Oxyhemoglobin ABG Sodium ABG Potassium ABG Chloride ABG Glucose Oxyhemoglobin Carboxyhemoglobin Sodium Potassium Chloride Carbon Dioxide BUN Creatinine Glucose POC Glucose 162 H 163 H 191 H Hemoglobin A1c Lactic Acid Calcium Magnesium Ferritin Total Bilirubin AST ALT Alkaline Phosphatase Lactate Dehydrogenase Total Creatine Kinase C-Reactive Protein Total Protein Albumin Triglycerides Arterial Blood Glucose Arterial Blood Ionized Calcium Ur Specific [place] Urine WBC (Auto) Vancomycin Trough Coronavirus (PCR) 12/24/20 12/24/20 12/24/20 17:28 18:57 20:48 WBC 19.1 H RBC 2.91 L Hgb 8.3 L Hct 26.0 L MCHC RDW 16.0 H Plt Count Lymph % (Auto) [place] % (Auto) Lymph # (Auto) [place] # (Auto) Baso # (Auto) Seg Neutrophils % Seg Neuts % (Manual) 92.0 H Lymphocytes % (Manual) 5.0 L Nucleated RBC % Seg Neutrophils # Seg Neutrophils # Man 17.6 H Lymphocytes # (Manual) 1.0 L D-Dimer ABG pH 7.250 L POC ABG pCO2 102.6 H 82.1 H POC ABG pO2 42.4 L 38.6 L ABG pO2 ABG HCO3 ABG O2 Saturation ABG Base Excess ABG Hemoglobin 9.0 L 9.3 L ABG Oxyhemoglobin 69.9 L 70.8 L ABG Sodium 131.1 L 130.7 L ABG Potassium ABG Chloride 89.0 L 89.0 L ABG Glucose 211 H 226 H Oxyhemoglobin Carboxyhemoglobin 1.7 H 1.8 H Sodium Potassium Chloride Carbon Dioxide BUN Creatinine Glucose POC Glucose Hemoglobin A1c Lactic Acid Calcium Magnesium Ferritin Total Bilirubin AST ALT Alkaline Phosphatase Lactate Dehydrogenase Total Creatine Kinase C-Reactive Protein Total Protein Albumin Triglycerides Arterial Blood Glucose 211 H 226 H Arterial Blood Ionized Calcium 4.0 L 4.1 L Ur Specific [place] Urine WBC (Auto) Vancomycin Trough Coronavirus (PCR) 12/24/20 12/25/20 12/25/20 23:31 04:04 06:31 WBC RBC Hgb Hct MCHC RDW Plt Count Lymph % (Auto) [place] % (Auto) Lymph # (Auto) [place] # (Auto) Baso # (Auto) Seg Neutrophils % Seg Neuts % (Manual) Lymphocytes % (Manual) Nucleated RBC % Seg Neutrophils # Seg Neutrophils # Man Lymphocytes # (Manual) D-Dimer ABG pH POC ABG pCO2 75.6 H POC ABG pO2 43.3 L ABG pO2 ABG HCO3 ABG O2 Saturation ABG Base Excess ABG Hemoglobin 10.6 L ABG Oxyhemoglobin 77.6 L ABG Sodium 131.4 L ABG Potassium ABG Chloride 90.0 L ABG Glucose 185 H Oxyhemoglobin Carboxyhemoglobin 2.4 H Sodium Potassium Chloride Carbon Dioxide BUN Creatinine Glucose POC Glucose 181 H 153 H Hemoglobin A1c Lactic Acid Calcium Magnesium Ferritin Total Bilirubin AST ALT Alkaline Phosphatase Lactate Dehydrogenase Total Creatine Kinase C-Reactive Protein Total Protein Albumin Triglycerides Arterial Blood Glucose 185 H Arterial Blood Ionized Calcium 4.1 L Ur Specific [place] Urine WBC (Auto) Vancomycin Trough Coronavirus (PCR) 12/25/20 12/25/20 12/25/20 11:17 11:17 11:17 WBC 19.6 H RBC 2.82 L Hgb 8.1 L Hct 25.2 L MCHC RDW 16.2 H Plt Count Lymph % (Auto) [place] % (Auto) Lymph # (Auto) [place] # (Auto) Baso # (Auto) Seg Neutrophils % Seg Neuts % (Manual) Lymphocytes % (Manual) Nucleated RBC % Seg Neutrophils # Seg Neutrophils # Man Lymphocytes # (Manual) D-Dimer ABG pH POC ABG pCO2 POC ABG pO2 ABG pO2 ABG HCO3 ABG O2 Saturation ABG Base Excess ABG Hemoglobin ABG Oxyhemoglobin ABG Sodium ABG Potassium ABG Chloride ABG Glucose Oxyhemoglobin Carboxyhemoglobin Sodium 136 L Potassium Chloride 92.3 L Carbon Dioxide 44 H* BUN Creatinine 0.3 L Glucose 240 H POC Glucose Hemoglobin A1c Lactic Acid Calcium 7.3 L Magnesium Ferritin Total Bilirubin AST ALT Alkaline Phosphatase Lactate Dehydrogenase Total Creatine Kinase C-Reactive Protein Total Protein Albumin Triglycerides 328 H Arterial Blood Glucose Arterial Blood Ionized Calcium Ur Specific [place] Urine WBC (Auto) Vancomycin Trough Coronavirus (PCR) 12/25/20 12/25/20 12/25/20 12:07 17:52 21:49 WBC RBC Hgb Hct MCHC RDW Plt Count Lymph % (Auto) [place] % (Auto) Lymph # (Auto) [place] # (Auto) Baso # (Auto) Seg Neutrophils % Seg Neuts % (Manual) Lymphocytes % (Manual) Nucleated RBC % Seg Neutrophils # Seg Neutrophils # Man Lymphocytes # (Manual) D-Dimer ABG pH POC ABG pCO2 POC ABG pO2 ABG pO2 ABG HCO3 ABG O2 Saturation ABG Base Excess ABG Hemoglobin ABG Oxyhemoglobin ABG Sodium ABG Potassium ABG Chloride ABG Glucose Oxyhemoglobin Carboxyhemoglobin Sodium Potassium Chloride Carbon Dioxide BUN Creatinine Glucose POC Glucose 210 H 188 H 152 H Hemoglobin A1c Lactic Acid Calcium Magnesium Ferritin Total Bilirubin AST ALT Alkaline Phosphatase Lactate Dehydrogenase Total Creatine Kinase C-Reactive Protein Total Protein Albumin Triglycerides Arterial Blood Glucose Arterial Blood Ionized Calcium Ur Specific [place] Urine WBC (Auto) Vancomycin Trough Coronavirus (PCR) 12/25/20 12/26/20 12/26/20 23:47 04:00 05:20 WBC RBC Hgb Hct MCHC RDW Plt Count Lymph % (Auto) [place] % (Auto) Lymph # (Auto) [place] # (Auto) Baso # (Auto) Seg Neutrophils % Seg Neuts % (Manual) Lymphocytes % (Manual) Nucleated RBC % Seg Neutrophils # Seg Neutrophils # Man Lymphocytes # (Manual) D-Dimer ABG pH POC ABG pCO2 73.4 H POC ABG pO2 58.8 L ABG pO2 ABG HCO3 ABG O2 Saturation ABG Base Excess ABG Hemoglobin 7.4 L ABG Oxyhemoglobin ABG Sodium 135.2 L ABG Potassium ABG Chloride 96.0 L ABG Glucose 164 H Oxyhemoglobin Carboxyhemoglobin Sodium Potassium Chloride Carbon Dioxide BUN Creatinine Glucose POC Glucose 138 H 147 H Hemoglobin A1c Lactic Acid Calcium Magnesium Ferritin Total Bilirubin AST ALT Alkaline Phosphatase Lactate Dehydrogenase Total Creatine Kinase C-Reactive Protein Total Protein Albumin Triglycerides Arterial Blood Glucose 164 H Arterial Blood Ionized Calcium 4.1 L Ur Specific [place] Urine WBC (Auto) Vancomycin Trough Coronavirus (PCR) 12/26/20 12/26/20 12/26/20 05:26 05:26 05:26 WBC 16.2 H RBC 2.75 L Hgb 7.8 L Hct 24.1 L MCHC RDW 16.3 H Plt Count 451 H Lymph % (Auto) [place] % (Auto) Lymph # (Auto) [place] # (Auto) Baso # (Auto) Seg Neutrophils % Seg Neuts % (Manual) 87.0 H Lymphocytes % (Manual) Nucleated RBC % 5.0 H Seg Neutrophils # Seg Neutrophils # Man 14.1 H Lymphocytes # (Manual) 0.0 L D-Dimer ABG pH POC ABG pCO2 POC ABG pO2 ABG pO2 ABG HCO3 ABG O2 Saturation ABG Base Excess ABG Hemoglobin ABG Oxyhemoglobin ABG Sodium ABG Potassium ABG Chloride ABG Glucose Oxyhemoglobin Carboxyhemoglobin Sodium Potassium Chloride 95.2 L Carbon Dioxide 44 H* BUN Creatinine 0.2 L Glucose 155 H POC Glucose Hemoglobin A1c Lactic Acid Calcium 7.4 L Magnesium Ferritin Total Bilirubin AST ALT Alkaline Phosphatase Lactate Dehydrogenase Total Creatine Kinase C-Reactive Protein Total Protein 6.0 L Albumin 1.6 L Triglycerides 307 H Arterial Blood Glucose Arterial Blood Ionized Calcium Ur Specific [place] Urine WBC (Auto) Vancomycin Trough Coronavirus (PCR) 12/26/20 12/26/20 12/26/20 11:21 17:26 23:22 WBC RBC Hgb Hct MCHC RDW Plt Count Lymph % (Auto) [place] % (Auto) Lymph # (Auto) [place] # (Auto) Baso # (Auto) Seg Neutrophils % Seg Neuts % (Manual) Lymphocytes % (Manual) Nucleated RBC % Seg Neutrophils # Seg Neutrophils # Man Lymphocytes # (Manual) D-Dimer ABG pH POC ABG pCO2 POC ABG pO2 ABG pO2 ABG HCO3 ABG O2 Saturation ABG Base Excess ABG Hemoglobin ABG Oxyhemoglobin ABG Sodium ABG Potassium ABG Chloride ABG Glucose Oxyhemoglobin Carboxyhemoglobin Sodium Potassium Chloride Carbon Dioxide BUN Creatinine Glucose POC Glucose 127 H 134 H 125 H Hemoglobin A1c Lactic Acid Calcium Magnesium Ferritin Total Bilirubin AST ALT Alkaline Phosphatase Lactate Dehydrogenase Total Creatine Kinase C-Reactive Protein Total Protein Albumin Triglycerides Arterial Blood Glucose Arterial Blood Ionized Calcium Ur Specific [place] Urine WBC (Auto) Vancomycin Trough Coronavirus (PCR) 12/27/20 12/27/20 12/27/20 03:19 05:17 10:52 WBC RBC Hgb Hct MCHC RDW Plt Count Lymph % (Auto) [place] % (Auto) Lymph # (Auto) [place] # (Auto) Baso # (Auto) Seg Neutrophils % Seg Neuts % (Manual) Lymphocytes % (Manual) Nucleated RBC % Seg Neutrophils # Seg Neutrophils # Man Lymphocytes # (Manual) D-Dimer ABG pH POC ABG pCO2 75.0 H POC ABG pO2 74.3 L ABG pO2 ABG HCO3 ABG O2 Saturation ABG Base Excess ABG Hemoglobin 7.3 L ABG Oxyhemoglobin 92.8 L ABG Sodium 135.6 L ABG Potassium ABG Chloride ABG Glucose 151 H Oxyhemoglobin Carboxyhemoglobin 2.0 H Sodium 136 L Potassium Chloride 96.8 L Carbon Dioxide 38 H BUN Creatinine 0.2 L Glucose 139 H POC Glucose 121 H Hemoglobin A1c Lactic Acid Calcium 7.0 L Magnesium Ferritin Total Bilirubin AST 52 H ALT Alkaline Phosphatase Lactate Dehydrogenase Total Creatine Kinase C-Reactive Protein Total Protein 4.7 L D Albumin 1.1 L Triglycerides Arterial Blood Glucose 151 H Arterial Blood Ionized Calcium 4.2 L Ur Specific [place] Urine WBC (Auto) Vancomycin Trough Coronavirus (PCR) 12/27/20 12/27/20 12/27/20 12:02 14:09 17:36 WBC 14.4 H RBC 2.82 L Hgb 8.0 L Hct 25.6 L MCHC 31 L RDW 16.4 H Plt Count 442 H Lymph % (Auto) [place] % (Auto) Lymph # (Auto) [place] # (Auto) Baso # (Auto) Seg Neutrophils % Seg Neuts % (Manual) 36.0 L Lymphocytes % (Manual) 7.0 L Nucleated RBC % 18.0 H Seg Neutrophils # Seg Neutrophils # Man Lymphocytes # (Manual) 1.0 L D-Dimer ABG pH POC ABG pCO2 POC ABG pO2 ABG pO2 ABG HCO3 ABG O2 Saturation ABG Base Excess ABG Hemoglobin ABG Oxyhemoglobin ABG Sodium ABG Potassium ABG Chloride ABG Glucose Oxyhemoglobin Carboxyhemoglobin Sodium Potassium Chloride Carbon Dioxide BUN Creatinine Glucose POC Glucose 126 H 107 H Hemoglobin A1c Lactic Acid Calcium Magnesium Ferritin Total Bilirubin AST ALT Alkaline Phosphatase Lactate Dehydrogenase Total Creatine Kinase C-Reactive Protein Total Protein Albumin Triglycerides Arterial Blood Glucose Arterial Blood Ionized Calcium Ur Specific [place] Urine WBC (Auto) Vancomycin Trough Coronavirus (PCR) 12/27/20 12/28/20 12/28/20 22:58 03:48 05:45 WBC 13.4 H RBC 2.78 L Hgb 7.9 L Hct 25.1 L MCHC RDW 16.4 H Plt Count 484 H Lymph % (Auto) [place] % (Auto) Lymph # (Auto) [place] # (Auto) Baso # (Auto) Seg Neutrophils % Seg Neuts % (Manual) 86.0 H Lymphocytes % (Manual) 2.0 L Nucleated RBC % 2.0 H Seg Neutrophils # Seg Neutrophils # Man 11.5 H Lymphocytes # (Manual) 0.3 L D-Dimer ABG pH POC ABG pCO2 73.1 H POC ABG pO2 66.2 L ABG pO2 ABG HCO3 ABG O2 Saturation ABG Base Excess ABG Hemoglobin 8.9 L ABG Oxyhemoglobin 90.3 L ABG Sodium ABG Potassium 3.3 L ABG Chloride ABG Glucose 107 H Oxyhemoglobin Carboxyhemoglobin 1.6 H Sodium Potassium Chloride Carbon Dioxide BUN Creatinine Glucose POC Glucose 130 H Hemoglobin A1c Lactic Acid Calcium Magnesium Ferritin Total Bilirubin AST ALT Alkaline Phosphatase Lactate Dehydrogenase Total Creatine Kinase C-Reactive Protein Total Protein Albumin Triglycerides Arterial Blood Glucose 107 H Arterial Blood Ionized Calcium 4.4 L Ur Specific [place] Urine WBC (Auto) Vancomycin Trough Coronavirus (PCR) 12/28/20 12/29/20 12/29/20 05:45 04:00 04:00 WBC 18.0 H RBC 2.80 L Hgb 8.0 L Hct 25.3 L MCHC RDW 17.1 H Plt Count 486 H Lymph % (Auto) [place] % (Auto) Lymph # (Auto) [place] # (Auto) Baso # (Auto) Seg Neutrophils % Seg Neuts % (Manual) 83.0 H Lymphocytes % (Manual) 10.0 L Nucleated RBC % 2.0 H Seg Neutrophils # Seg Neutrophils # Man 14.9 H Lymphocytes # (Manual) D-Dimer ABG pH POC ABG pCO2 POC ABG pO2 ABG pO2 ABG HCO3 ABG O2 Saturation ABG Base Excess ABG Hemoglobin ABG Oxyhemoglobin ABG Sodium ABG Potassium ABG Chloride ABG Glucose Oxyhemoglobin Carboxyhemoglobin Sodium Potassium 3.2 L D Chloride Carbon Dioxide 41 H* 38 H BUN Creatinine 0.3 L 0.3 L Glucose 135 H POC Glucose Hemoglobin A1c Lactic Acid Calcium 7.3 L 7.5 L Magnesium Ferritin Total Bilirubin AST ALT Alkaline Phosphatase Lactate Dehydrogenase Total Creatine Kinase C-Reactive Protein Total Protein 6.0 L D 6.1 L Albumin 1.4 L 1.5 L Triglycerides 284 H Arterial Blood Glucose Arterial Blood Ionized Calcium Ur Specific [place] Urine WBC (Auto) Vancomycin Trough Coronavirus (PCR) 12/29/20 12/29/20 12/29/20 04:00 05:42 11:54 WBC RBC Hgb Hct MCHC RDW Plt Count Lymph % (Auto) [place] % (Auto) Lymph # (Auto) [place] # (Auto) Baso # (Auto) Seg Neutrophils % Seg Neuts % (Manual) Lymphocytes % (Manual) Nucleated RBC % Seg Neutrophils # Seg Neutrophils # Man Lymphocytes # (Manual) D-Dimer ABG pH 7.319 L POC ABG pCO2 71.0 H POC ABG pO2 65.2 L ABG pO2 ABG HCO3 ABG O2 Saturation ABG Base Excess ABG Hemoglobin 8.7 L ABG Oxyhemoglobin ABG Sodium ABG Potassium ABG Chloride ABG Glucose 140 H Oxyhemoglobin Carboxyhemoglobin Sodium Potassium Chloride Carbon Dioxide BUN Creatinine Glucose POC Glucose 126 H 128 H Hemoglobin A1c Lactic Acid Calcium Magnesium Ferritin Total Bilirubin AST ALT Alkaline Phosphatase Lactate Dehydrogenase Total Creatine Kinase C-Reactive Protein Total Protein Albumin Triglycerides Arterial Blood Glucose 140 H Arterial Blood Ionized Calcium 4.3 L Ur Specific [place] Urine WBC (Auto) Vancomycin Trough Coronavirus (PCR) 12/29/20 12/29/20 12/30/20 17:54 23:47 04:00 WBC 15.0 H RBC 2.89 L Hgb 8.2 L Hct 26.1 L MCHC RDW 17.3 H Plt Count Lymph % (Auto) 9.2 L [place] % (Auto) Lymph # (Auto) [place] # (Auto) Baso # (Auto) Seg Neutrophils % 87.0 H Seg Neuts % (Manual) Lymphocytes % (Manual) Nucleated RBC % Seg Neutrophils # 13.1 H Seg Neutrophils # Man Lymphocytes # (Manual) D-Dimer ABG pH POC ABG pCO2 POC ABG pO2 ABG pO2 ABG HCO3 ABG O2 Saturation ABG Base Excess ABG Hemoglobin ABG Oxyhemoglobin ABG Sodium ABG Potassium ABG Chloride ABG Glucose Oxyhemoglobin Carboxyhemoglobin Sodium Potassium Chloride Carbon Dioxide BUN Creatinine Glucose POC Glucose 155 H 139 H Hemoglobin A1c Lactic Acid Calcium Magnesium Ferritin Total Bilirubin AST ALT Alkaline Phosphatase Lactate Dehydrogenase Total Creatine Kinase C-Reactive Protein Total Protein Albumin Triglycerides Arterial Blood Glucose Arterial Blood Ionized Calcium Ur Specific [place] Urine WBC (Auto) Vancomycin Trough Coronavirus (PCR) 12/30/20 12/30/20 12/30/20 04:00 04:14 05:25 WBC RBC Hgb Hct MCHC RDW Plt Count Lymph % (Auto) [place] % (Auto) Lymph # (Auto) [place] # (Auto) Baso # (Auto) Seg Neutrophils % Seg Neuts % (Manual) Lymphocytes % (Manual) Nucleated RBC % Seg Neutrophils # Seg Neutrophils # Man Lymphocytes # (Manual) D-Dimer ABG pH POC ABG pCO2 69.3 H POC ABG pO2 61.3 L ABG pO2 ABG HCO3 ABG O2 Saturation ABG Base Excess ABG Hemoglobin 9.1 L ABG Oxyhemoglobin 88.0 L ABG Sodium ABG Potassium ABG Chloride ABG Glucose 159 H Oxyhemoglobin Carboxyhemoglobin 1.8 H Sodium Potassium Chloride Carbon Dioxide 37 H BUN Creatinine 0.3 L Glucose 156 H POC Glucose 141 H Hemoglobin A1c Lactic Acid Calcium 7.6 L Magnesium Ferritin Total Bilirubin AST ALT Alkaline Phosphatase Lactate Dehydrogenase Total Creatine Kinase C-Reactive Protein Total Protein 6.0 L Albumin 1.4 L Triglycerides Arterial Blood Glucose 159 H Arterial Blood Ionized Calcium 4.4 L Ur Specific [place] Urine WBC (Auto) Vancomycin Trough Coronavirus (PCR) 12/30/20 12:18 WBC RBC Hgb Hct MCHC RDW Plt Count Lymph % (Auto) [place] % (Auto) Lymph # (Auto) [place] # (Auto) Baso # (Auto) Seg Neutrophils % Seg Neuts % (Manual) Lymphocytes % (Manual) Nucleated RBC % Seg Neutrophils # Seg Neutrophils # Man Lymphocytes # (Manual) D-Dimer ABG pH POC ABG pCO2 POC ABG pO2 ABG pO2 ABG HCO3 ABG O2 Saturation ABG Base Excess ABG Hemoglobin ABG Oxyhemoglobin ABG Sodium ABG Potassium ABG Chloride ABG Glucose Oxyhemoglobin Carboxyhemoglobin Sodium Potassium Chloride Carbon Dioxide BUN Creatinine Glucose POC Glucose 147 H Hemoglobin A1c Lactic Acid Calcium Magnesium Ferritin Total Bilirubin AST ALT Alkaline Phosphatase Lactate Dehydrogenase Total Creatine Kinase C-Reactive Protein Total Protein Albumin Triglycerides Arterial Blood Glucose Arterial Blood Ionized Calcium Ur Specific [place] Urine WBC (Auto) Vancomycin Trough Coronavirus (PCR)
--- NOTE | 2020-12-30 14:17 | Progress Note ---
Assessment and Plan Cultures: SARS CoV-2 PCR: positive Blood culture: No growth 11/21/2020 tracheal aspirate culture: MRSA 12/09/2020 blood culture: no growth 12/09/2020 sputum culture: Klebsiella 12/17/2020 blood culture: 1 bottle with coag negative staph, second bottle with Enterococcus faecalis 12/17/2020 tracheal aspirate culture: Usual respiratory zachariah 12/21/2020 blood culture: No growth A/P: 59-year-old male with: #Shock: multifactorial. #GPC bacteremia: source unclear. Typically, Enterococcus is not considered a contaminant, however only present in 1 out of 4 bottles while another set is growing Coag negative Staph. #Bilateral pneumonia: secondary to COVID-19. Completed abx, remdesivir. #Klebsiella on ET aspirate culture: ?colonization v/s true disease, difficult to differentiate. Will treat given development of low-grade temperatures and white count. #B/L pneumothorax and pneumomediastinum: s/p chest tubes. #Acute hypoxic respiratory failure: Remains on the vent. Recs: -continue Zosyn, D6 given persistent shock. Complete 7 days. -extremely poor prognosis, agree with DNR status, recent literature showing mortality of 100% in COVID-19 patients who required CPR Rm Carrillo MD [facility] O: [phone] F: [phone] Subjective Date of service: 12/30/20 Principal diagnosis: COVID-19 Interval history: Afebrile, no other issues. Objective - Exam Narrative Exam: Physical exam deferred due to PPE conservation strategy. Please refer to primary team's note. - Constitutional Vitals: Vital Signs Temp Pulse Resp BP Pulse Ox 97.4 F L 69 29 H 110/65 97 12/30/20 12:00 12/30/20 12:15 12/30/20 12:15 12/30/20 12:15 12/30/20 12:15 Temperature -Last 24 Hours Temperature 97.4 F Temperature 97.4 F Temperature 97.0 F Temperature 97.4 F Temperature 98.2 F - Labs CBC & Chem 7: 12/30/20 04:00 12/30/20 04:00 Labs: Abnormal lab results 12/29/20 12/29/20 12/30/20 Range/Units 17:54 23:47 04:00 WBC 15.0 H (4.5-11.0) K/mm3 RBC 2.89 L (3.65-5.03) M/mm3 Hgb 8.2 L (11.8-15.2) gm/dl Hct 26.1 L (35.5-45.6) % RDW 17.3 H (13.2-15.2) % Lymph % (Auto) 9.2 L (13.4-35.0) % Seg Neutrophils % 87.0 H (40.0-70.0) % Seg Neutrophils # 13.1 H (1.8-7.7) K/mm3 POC ABG pCO2 (32.0-48.0) mmHg POC ABG pO2 (83-108) mmHg ABG Hemoglobin (12.0-17.5) ABG Oxyhemoglobin (94-98) ABG Glucose (65-95) mg/dL Carboxyhemoglobin (0.5-1.5) Carbon Dioxide (22-30) mmol/L Creatinine (0.8-1.3) mg/dL Glucose (75-100) mg/dL POC Glucose 155 H 139 H (70-105) mg/dL Calcium (8.4-10.2) mg/dL Total Protein (6.3-8.2) g/dL Albumin (3.9-5) g/dL Arterial Blood Glucose (65-95) mg/dL Arterial Blood Ionized Calcium (4.6-5.3) mg/dL 12/30/20 12/30/20 12/30/20 Range/Units 04:00 04:14 05:25 WBC (4.5-11.0) K/mm3 RBC (3.65-5.03) M/mm3 Hgb (11.8-15.2) gm/dl Hct (35.5-45.6) % RDW (13.2-15.2) % Lymph % (Auto) (13.4-35.0) % Seg Neutrophils % (40.0-70.0) % Seg Neutrophils # (1.8-7.7) K/mm3 POC ABG pCO2 69.3 H (32.0-48.0) mmHg POC ABG pO2 61.3 L (83-108) mmHg ABG Hemoglobin 9.1 L (12.0-17.5) ABG Oxyhemoglobin 88.0 L (94-98) ABG Glucose 159 H (65-95) mg/dL Carboxyhemoglobin 1.8 H (0.5-1.5) Carbon Dioxide 37 H (22-30) mmol/L Creatinine 0.3 L (0.8-1.3) mg/dL Glucose 156 H (75-100) mg/dL POC Glucose 141 H (70-105) mg/dL Calcium 7.6 L (8.4-10.2) mg/dL Total Protein 6.0 L (6.3-8.2) g/dL Albumin 1.4 L (3.9-5) g/dL Arterial Blood Glucose 159 H (65-95) mg/dL Arterial Blood Ionized Calcium 4.4 L (4.6-5.3) mg/dL 12/30/20 Range/Units 12:18 WBC (4.5-11.0) K/mm3 RBC (3.65-5.03) M/mm3 Hgb (11.8-15.2) gm/dl Hct (35.5-45.6) % RDW (13.2-15.2) % Lymph % (Auto) (13.4-35.0) % Seg Neutrophils % (40.0-70.0) % Seg Neutrophils # (1.8-7.7) K/mm3 POC ABG pCO2 (32.0-48.0) mmHg POC ABG pO2 (83-108) mmHg ABG Hemoglobin (12.0-17.5) ABG Oxyhemoglobin (94-98) ABG Glucose (65-95) mg/dL Carboxyhemoglobin (0.5-1.5) Carbon Dioxide (22-30) mmol/L Creatinine (0.8-1.3) mg/dL Glucose (75-100) mg/dL POC Glucose 147 H (70-105) mg/dL Calcium (8.4-10.2) mg/dL Total Protein (6.3-8.2) g/dL Albumin (3.9-5) g/dL Arterial Blood Glucose (65-95) mg/dL Arterial Blood Ionized Calcium (4.6-5.3) mg/dL
[2020-12-30] MEDS: ENOXAPARIN 40 MG/0.4 ML INJ SUB-Q SCH (21:31)
[2020-12-30] MEDS: INSULIN GLARGINE 100 UNITS/ML SUB-Q SCH (21:31)
[2020-12-31] MEDS: PIPERACIL/TAZOBACTA 4.5/NS 100 4.5 GM/100 ML VIAL IV SCH ×4 (00:56→18:03)
[2020-12-31] MEDS: NORepinephrine 8 MG in SODIUM CHLORIDE 0.9% 250ML 242 ML IV SCH ×4 (00:57→17:00)
[2020-12-31] MEDS: fentaNYL DRIP Premix 2,000 MCG/100 ML BAG IV SCH ×3 (05:20→18:08)
[2020-12-31 05:53] LABS: ABG Base Excess 11.1 mmol/L (-2.0-3.0); ABG Methemoglobin 0.6 % (0.0-1.5); ABG Oxygen Saturation 90.4 % (95.0-99.0); ABG PCO2 76.2 mm Hg; ABG PH 7.316 pH Units (7.350-7.450); ABG PO2 56.9 mm Hg (80.0-90.0)
[2020-12-31] MEDS: INSULIN LISPRO 100 UNIT/ML SUB-Q SCH ×4 (06:02→18:05)
[2020-12-31] MEDS: SENNOSIDES/DOCUSATE SODIUM 8.6/50 MG TAB PO SCH ×3 (06:05→22:06)
[2020-12-31 06:48] LABS: Hematocrit 25.9 % (35.5-45.6); Mean Corpuscular HGB Conc 31 % (32-34); Mean Corpuscular Volume 90 fl (84-94); Platelet Count 458 K/mm3 (140-440); Red Blood Count 2.89 M/mm3 (3.65-5.03); Red Cell Distribution Width 18.2 % (13.2-15.2)
[2020-12-31] MEDS: MIDAZOLAM 100 MG in SODIUM CHLORIDE 0.9% 80 ML IV SCH (06:58)
[2020-12-31 08:42] LABS: Myelocytes # (Manual) 0.2 K/mm3; Total Cells Counted 100
[2020-12-31 08:44] LABS: Anisocytosis 1+; Platelet Estimate Consistent w Auto
[2020-12-31] MEDS: POLYETHYLENE GLYCOL 3350 17 GM POWDER PO SCH (09:03)
[2020-12-31] MEDS: DOCUSATE SODIUM 100 MG/10 ML ORAL LIQD PO SCH ×2 (09:03→22:06)
[2020-12-31] MEDS: FAMOTIDINE 20 MG TAB PO SCH ×2 (09:03→22:06)
[2020-12-31 10:34] LABS: Alanine Aminotransferase 23 units/L (7-56); Albumin 1.4 g/dL (3.9-5); Blood Urea Nitrogen 16 mg/dL (9-20); Calcium 7.3 mg/dL (8.4-10.2); Hemolysis Index 0
[2020-12-31 10:37] LABS: BUN/Creatinine Ratio 53
--- NOTE | 2020-12-31 11:42 | Progress Note ---
Assessment and Plan 59 y/o male with acute respiratory failure, abnormal CXR and abnormal lab studies. 12/31/20: Examined chest tubes and increased suction in pleurovac to 30 cmH2O. Only serosanguinous fluid, no blood. Explained to nursing re-inforcing [facility] hanisms with vaseline gauze and slitted 4x4's. 12/30/20: Continue supportive measures. Continue to wean FiO2 for sats >88%, but will go slowly given his tenuous course. Chest tubes to suction. Explained to nursing, that sub q air will be present but for now, nothing to do unless oxygen saturation drops rapidly, then would need stat CXR to evaluate for worsening PTX or tension. 12/29/20: Continue supporitve measures. Continue sedation and vasopressor support. Chest tubes will remain until patient is extubated if able to do so. Prognosis is very very guarded. 12/27/20: Continue supportive measures. Continue sedation and vasopressor support. Chest tubes remain until extubated if able to do so. Very very guarded prognosis. 12/26/20: Very very poor prognosis given prolong time of hypoxemia during the events from and continued hypoxemia despite 100%. PTX's and recurrent PTX's have been very common with this current wave of COVID 19 so not entirely unexpected. Appreciate surgery help with second chest tube. Will Strip tubes again tomorrow morning. COntinue sedation and vasopressor support. Very very poor prognosis. Please do not give any further lasix, as the changes seen are not edema related. 12/24/20: If patient spikes again in the next 24 hours, please reculture urine and blood. In regards to cuff, as long as patient is not losing volumes, no indication to change tube out as of yet. Will continue to monitor. Continue abx as ID recs. Attempt to wean back down again but unfortunately this has been an ongoing issue for this patient. Continue pressors to help achieve adequate sedation for vent management. Prognosis remains guarded. 12/23/20: Continue current level of sedation. Wean parameters as listed below. appreciate ID recs and help. 12/22/20: Continue current level of sedation. Ok to wean FiO2 for sats >88% and PaO2>55mmHg. Follow up ID recs in regards to abx therapy. Prognosis unfortunately still remains guarded. 12/21/20: Back up to 100%. Peep is the same chest tubes intact. Long discussion on rounds, will restart Diprovan to obtain adequate sedation (RASS of -4). Ok to titrate pressors to achieve adequate sedation if blood pressure is compromised by sedatives. Prognosis remains guarded. Awaiting speciation of other cultures. 12/18/20: Still on 75% and 18 of PEEP. Follow up cultures, Blood pending, urine has not resulted yet. Had another temp at 20:00 last night. CXR looks more like pulmonary edema but not in a position to diurese at this time as he occasionally requires vasopressor support given the amount of sedation needed to achieve a RASS of 4. If he continues to spike, would consider hospital acquired coverage of abx therapy. Prognosis remains guarded. 12/17/20: Back down to 75%. Febrile last night, if and when spikes again today, please obtain blood cultures times 2 and urine. Will go ahead and order repeat CXR now. Prognosis still remains guarded. 12/16/20: Back up to 100%. Once stabilized will attempt to wean back down. ABG in the am and may need to consider repeat ABG later this afternoon pending clinical state. Unable to prone given bilateral chest tubes. Prognosis remains guarded to poor. 12/15/20: Tolerating weaning from yesterday. RT to attempt to wean some more today. Kidney function remains unchanged. Guarded prognosis. 12/14/20: Unable to wean FiO2 today. Continue supportive measures. Great that his kidney function has maintained but given the amount of oxygen he continues to require, his chances of recovery continue to decrease. Family aware and will up date them as needed. Very very guarded prognosis. 12/13/20: WIll start Weaning FiO2 again tomorrow morning of PaO2 remains this good. Continue all other supportive measures. Guarded prognosis. Monitor renal function closely. 12/12/20: Long discussion with brother at door. Patient remains full code which is not unreasonable but family is realistic about outcome being poor. Will continue all supportive measures. IF clinical state worsens, will ask family to come back to see patient. Guarded Prognosis. 12/11/20: Will attempt to wean Diprovan off and increase precedex. Triglycerides were ok. IF we have to support with pressors we will but I have asked nursing to please be detailed in their checkouts as to why they did certain things with the continuous drips. Continue supportive measures. Brother is going to try to come and see him from [place] 12/10/20: No acute events overnight. Patient has had waxing and waning of the amount of oxygen he has required over the last 24-72 hours. I have a bad feeling that he is on the brink of cardiac arrest and this could happen at any moment. I am going to reach out to the brother today to explain to him my concerns. Patient is a full code. Very very guarded prognosis. 12/09/20: Repeat ABG later today. Wean FiO2 for sats >88%. Repeat CXR as well. With BP dropping could be relative adrenal insufficiency, will watch for now, however if pressor requirement increases would consider stress dose steroids and maybe volume replacement. Follow up cultures. Guarded prognosis. 12/08/20: Increase TV to 425. Drop FiO2 to 65% and wean for sats >88%. COntinue chest tubes. Change steroids to 20q12. 12/07/20: CXR is stable, no indication for another chest tube at this time. Will repeat ABG in 1 hour post change to 70% and wean accordingly. Dropping steroids to 20q8. Guarded prognosis. Same weaning parameters apply today as of 12/04/20 12/04/20: Continue to wean steroids to off. Continue to wean FiO2 for sats >88%. Keep PEEP at current level, would not feel comfortable weaning PEEP until FiO2 at 35-40%. Continue chest tubes to suction. PaO2 of >55, pH of >7.2 and sats >88% are acceptable. : Dropped steroids down to 40q8 and will start to wean from there. Continue to slowly wean FiO2 first, keep PEEP at current level. Spoke with Kehinde, please see my event note, who is the biological brother. He had no questions but thanked us for our care. Prognosis remains very very guarded. PaO2 of 55 and pH of >7.2 and sats of >88% are all acceptable. 12/02/20: Wean FiO2 for sats >88% and PaO2 >55. Unable to prone currently secondary to bilateral chest tubes. COntinue high dose steroids. CM To figure out who is the immediate next of kin that can make decisions and then we will discuss the current clinical situation with them. 12/01/20: Continue PEEP and FiO2 elevated to keep sats >88% and PaO2 >55. Small lung volumes and high PEEP. very very guarded prognosis. 11/30/20: Worsening hypoxemia. Chest tubes stable. Likely just worsening disease. Unable to prone now. Increase PEEP to 18 and FiO2 back up to 100. Continue 3 sedatives for RASS of -2. Obtain 12 lead to look at T waves as K was only 4.6 on yesterday. Guarded, guarded prognosis 11/29/20: Second chest tube in on yesterday. CXR is stable. ABG unchanged. Will likely increase PEEP now that chest tubes are in. No further paralytics. Still making good urine. Prognosis remains guarded. Will check chemistry to assess Potassium levels given peaked t's seen on monitor. 11/28/20: Second chest tube today. Once chest tube in, will likely increase PEEP to 18 and repeat gas about 2 hours after this. Continue paralytic today. No proning now that patient will have bilateral chest tubes. VEry guarded prognosis. 11/27/20: Spoke with surgery who have agreed to evaluate and placed chest tube on either right or left side pending CXR reading. Will monitor for 36-48 hours and if no resolution, will need chest tube placed on opposite side as well. Once placed, will likely paralyze again but hold on proning for now. Guarded prognosis. 11/26/20: Paralytics are off. Continue current level of sedation. Will prone for 12 hours today and repeat ABG in the am. Continue lung protective strategy. Guarded prognosis. 11/25/20: Prone again to 16 hours, will prone at 12-12:30. Continue paralytics for 24 more hours. Discussed the idea of permissive hypercapnea again today and as long as pH is above 7.2 no changes should be made to TV and or RR without discussing with physician. Continue to monitor urine output, guarded prognosis. Hold on lasix therapy today. 11/24/20: Prone again today. Will try 48 hours of paralyzing the patient to see if this will help with oxygenation. Will speak with RT's about permissive hypercapnea and that pH's of 7.2 and greater are ok. Continue high doses steroids. Prognosis is still very very guarded. If not improvement with paralytics, will attempt transfer. 11/23/20: Prone again today for 12 hours. Continue High Dose steroids. Hold on lasix given marginal BP's. Prognosis is very very guarded to poor. Will continue all supportive measures. If not able to wean from 100%, will attempt transfer for ECMO. 1. Pulm- Agree with concern for covid. Agree with empiric abx but procal is only mildly elevated. Await cultures. Continue bipap therapy for now but will need to monitor closely. [facility] has ordered CTA, but I spoke with pharmacy and we will empirically treat with BID lovenox therapy. COntinue empiric steroid therapy for COVID until studies back. Not sure that he will be able to prone on bipap therapy. Monitor volume status and run as dry as possible. 2. Renal-normal function but all electrolytes abnormal. HYponatremia and Hypochloremia volume up vs volume down. Sent BNP. Would suggest obtaning echo as well. Not sure what to make of elevated lactate unless that is from incr eased work of breathing or damage to other tissue unknown. May need to check LFT's and Coags as well. 3. Guarded Prognosis. CCT 31 minutes. Subjective Date of service: 12/31/20 Principal diagnosis: COVID-19 Interval history: No acute events. Stable. Unable to wean this am as PaO2 is only 56 this am on 80%. Sats are still good in the mid 90's. Remains sedated. Urine output is good. Per nursing having some leakage from around the chest tubes on the right. Both with air leaks in the water chamber. Remainder is negative. Objective Vital Signs - 12hr 12/30/20 12/31/20 12/31/20 23:45 00:00 00:09 Temperature 97.4 F L Pulse Rate 101 H 111 H 103 H Pulse Rate [ 104 H From Monitor] Respiratory 30 H 30 H Rate Blood Pressure 81/45 85/50 85/50 O2 Sat by Pulse 90 92 92 Oximetry 12/31/20 12/31/20 12/31/20 00:15 00:30 00:45 Temperature Pulse Rate 108 H 107 H 91 H Pulse Rate [ From Monitor] Respiratory 26 H 30 H 30 H Rate Blood Pressure 85/49 72/45 133/79 O2 Sat by Pulse 88 91 97 Oximetry 12/31/20 12/31/20 12/31/20 01:00 01:15 01:31 Temperature Pulse Rate 96 H 88 97 H Pulse Rate [ From Monitor] Respiratory 30 H 30 H 24 Rate Blood Pressure 77/43 134/76 76/42 O2 Sat by Pulse 95 97 92 Oximetry 12/31/20 12/31/20 12/31/20 01:45 02:00 02:15 Temperature Pulse Rate 99 H 99 H 99 H Pulse Rate [ From Monitor] Respiratory 30 H 30 H 30 H Rate Blood Pressure 160/84 133/75 119/74 O2 Sat by Pulse 97 96 95 Oximetry 12/31/20 12/31/20 12/31/20 02:30 02:45 03:00 Temperature Pulse Rate 98 H 98 H 95 H Pulse Rate [ From Monitor] Respiratory 30 H 30 H 30 H Rate Blood Pressure 127/77 118/69 128/73 O2 Sat by Pulse 95 95 95 Oximetry 12/31/20 12/31/20 12/31/20 03:15 03:30 03:45 Temperature Pulse Rate 94 H 93 H 92 H Pulse Rate [ From Monitor] Respiratory 26 H 30 H 30 H Rate Blood Pressure 122/66 119/68 122/70 O2 Sat by Pulse 95 95 94 Oximetry 12/31/20 12/31/20 12/31/20 04:00 04:15 04:30 Temperature 97.4 F L Pulse Rate 90 88 88 Pulse Rate [ 90 From Monitor] Respiratory 30 H 30 H 30 H Rate Blood Pressure 123/66 120/71 120/69 O2 Sat by Pulse 95 95 95 Oximetry 12/31/20 12/31/20 12/31/20 04:45 05:00 05:10 Temperature Pulse Rate 87 85 83 Pulse Rate [ From Monitor] Respiratory 30 H 30 H Rate Blood Pressure 123/65 120/69 120/69 O2 Sat by Pulse 95 95 94 Oximetry 12/31/20 12/31/20 12/31/20 05:15 05:30 05:45 Temperature Pulse Rate 84 83 83 Pulse Rate [ From Monitor] Respiratory 30 H 30 H 30 H Rate Blood Pressure 121/68 116/69 119/63 O2 Sat by Pulse 95 94 95 Oximetry 12/31/20 12/31/20 12/31/20 06:00 06:15 06:30 Temperature Pulse Rate 89 92 H 90 Pulse Rate [ From Monitor] Respiratory 30 H 30 H 30 H Rate Blood Pressure 103/53 121/69 114/65 O2 Sat by Pulse 92 94 95 Oximetry 12/31/20 12/31/20 12/31/20 06:45 07:01 07:15 Temperature 97.8 F Pulse Rate 87 87 86 Pulse Rate [ From Monitor] Respiratory 30 H 24 30 H Rate Blood Pressure 113/71 106/64 114/68 O2 Sat by Pulse 95 96 96 Oximetry 12/31/20 12/31/20 12/31/20 07:27 07:30 07:45 Temperature Pulse Rate 88 88 89 Pulse Rate [ From Monitor] Respiratory 23 30 H Rate Blood Pressure 114/68 116/66 113/64 O2 Sat by Pulse 95 94 92 Oximetry 12/31/20 12/31/20 12/31/20 08:00 08:15 08:30 Temperature Pulse Rate 85 84 82 Pulse Rate [ 83 From Monitor] Respiratory 30 H 30 H 30 H Rate Blood Pressure 110/62 116/64 120/65 O2 Sat by Pulse 94 94 94 Oximetry 12/31/20 12/31/20 12/31/20 08:45 09:00 09:15 Temperature Pulse Rate 82 81 82 Pulse Rate [ From Monitor] Respiratory 30 H 30 H 30 H Rate Blood Pressure 118/64 109/65 115/63 O2 Sat by Pulse 94 94 94 Oximetry 12/31/20 12/31/20 12/31/20 09:30 09:45 10:00 Temperature Pulse Rate 91 H 87 84 Pulse Rate [ From Monitor] Respiratory 30 H 23 31 H Rate Blood Pressure 118/62 110/63 110/63 O2 Sat by Pulse 96 95 95 Oximetry 12/31/20 12/31/20 12/31/20 10:15 10:30 11:12 Temperature Pulse Rate 82 85 83 Pulse Rate [ From Monitor] Respiratory 30 H 30 H Rate Blood Pressure 111/62 109/61 111/66 O2 Sat by Pulse 96 94 95 Oximetry Constitutional: lethargic, comatose, other (on vent orally intubated) ENT: other (Now intubated) Effort: other (vent support ) Ascultation: Bilateral: diminished breath sounds, rales, rhonchi, other (coarse BS bilaterally) Percussion: Bilateral: not dull Cardiovascular: regular rate and rhythm (tachy ) Gastrointestinal: soft, non-tender, non-distended Integumentary: normal Extremities: no cyanosis, no edema, pink and warm Neurologic: other (sedated) Psychiatric: other (sedated) CBC and BMP: 12/31/20 Unknown 12/31/20 04:00 ABG, PT/INR, D-dimer: ABG ABG pH 7.316 pH Units (7.350-7.450) L 12/31/20 05:32 POC ABG pCO2 69.3 mmHg (32.0-48.0) H 12/30/20 04:14 ABG pCO2 76.2 mm Hg 12/31/20 05:32 POC ABG pO2 61.3 mmHg (83-108) L 12/30/20 04:14 ABG pO2 56.9 mm Hg (80.0-90.0) L 12/31/20 05:32 POC ABG HCO3 36 12/30/20 04:14 ABG O2 Saturation 90.4 % (95.0-99.0) L 12/31/20 05:32 PT/INR, D-dimer D-Dimer 926.11 ng/mlDDU (0-234) H 11/26/20 06:04 Abnormal lab findings: Abnormal Labs 11/15/20 11/15/20 11/15/20 10:39 10:39 10:39 WBC 14.3 H RBC 5.17 H Hgb Hct MCHC RDW Plt Count Lymph % (Auto) 7.8 L [place] % (Auto) 7.6 H Lymph # (Auto) 1.1 L [place] # (Auto) 1.1 H Baso # (Auto) Seg Neutrophils % 83.3 H Seg Neuts % (Manual) Lymphocytes % (Manual) Nucleated RBC % Seg Neutrophils # 11.9 H Seg Neutrophils # Man Lymphocytes # (Manual) D-Dimer ABG pH POC ABG pCO2 POC ABG pO2 ABG pO2 ABG HCO3 ABG O2 Saturation ABG Base Excess ABG Hemoglobin ABG Oxyhemoglobin ABG Sodium ABG Potassium ABG Chloride ABG Glucose Oxyhemoglobin Carboxyhemoglobin Sodium 128 L Potassium Chloride 96.0 L Carbon Dioxide BUN Creatinine 0.7 L Glucose 238 H POC Glucose Hemoglobin A1c Lactic Acid 4.10 H* Calcium 7.0 L Magnesium Ferritin Total Bilirubin 1.40 H AST 49 H ALT 70 H Alkaline Phosphatase Lactate Dehydrogenase 663 H Total Creatine Kinase C-Reactive Protein 19.80 H Total Protein Albumin 2.9 L Triglycerides Arterial Blood Glucose Arterial Blood Ionized Calcium Ur Specific [place] Urine WBC (Auto) Vancomycin Trough Coronavirus (PCR) 11/15/20 11/15/20 11/15/20 10:39 10:39 11:20 WBC RBC Hgb Hct MCHC RDW Plt Count Lymph % (Auto) [place] % (Auto) Lymph # (Auto) [place] # (Auto) Baso # (Auto) Seg Neutrophils % Seg Neuts % (Manual) Lymphocytes % (Manual) Nucleated RBC % Seg Neutrophils # Seg Neutrophils # Man Lymphocytes # (Manual) D-Dimer > 41457 H ABG pH POC ABG pCO2 29.9 L POC ABG pO2 137.3 H ABG pO2 ABG HCO3 ABG O2 Saturation ABG Base Excess ABG Hemoglobin ABG Oxyhemoglobin ABG Sodium 126.5 L ABG Potassium ABG Chloride ABG Glucose 248 H Oxyhemoglobin Carboxyhemoglobin Sodium Potassium Chloride Carbon Dioxide BUN Creatinine Glucose POC Glucose Hemoglobin A1c Lactic Acid Calcium Magnesium Ferritin 672.8 H Total Bilirubin AST ALT Alkaline Phosphatase Lactate Dehydrogenase Total Creatine Kinase C-Reactive Protein Total Protein Albumin Triglycerides Arterial Blood Glucose 248 H Arterial Blood Ionized Calcium 4.1 L Ur Specific [place] Urine WBC (Auto) Vancomycin Trough Coronavirus (PCR) 11/15/20 11/15/20 11/16/20 13:41 23:41 01:45 WBC RBC Hgb Hct MCHC RDW Plt Count Lymph % (Auto) [place] % (Auto) Lymph # (Auto) [place] # (Auto) Baso # (Auto) Seg Neutrophils % Seg Neuts % (Manual) Lymphocytes % (Manual) Nucleated RBC % Seg Neutrophils # Seg Neutrophils # Man Lymphocytes # (Manual) D-Dimer ABG pH POC ABG pCO2 POC ABG pO2 ABG pO2 ABG HCO3 ABG O2 Saturation ABG Base Excess ABG Hemoglobin ABG Oxyhemoglobin ABG Sodium ABG Potassium ABG Chloride ABG Glucose Oxyhemoglobin Carboxyhemoglobin Sodium Potassium Chloride Carbon Dioxide BUN Creatinine Glucose POC Glucose 284 H Hemoglobin A1c Lactic Acid 2.30 H* Calcium Magnesium Ferritin Total Bilirubin AST ALT Alkaline Phosphatase Lactate Dehydrogenase Total Creatine Kinase C-Reactive Protein Total Protein Albumin Triglycerides Arterial Blood Glucose Arterial Blood Ionized Calcium Ur Specific [place] 1.037 H Urine WBC (Auto) Vancomycin Trough Coronavirus (PCR) 11/16/20 11/16/20 11/16/20 05:29 05:29 05:29 WBC 12.9 H RBC Hgb Hct MCHC RDW Plt Count Lymph % (Auto) 4.5 L [place] % (Auto) Lymph # (Auto) 0.6 L [place] # (Auto) Baso # (Auto) 0.2 H Seg Neutrophils % 89.8 H Seg Neuts % (Manual) Lymphocytes % (Manual) Nucleated RBC % Seg Neutrophils # 11.5 H Seg Neutrophils # Man Lymphocytes # (Manual) D-Dimer ABG pH POC ABG pCO2 POC ABG pO2 ABG pO2 ABG HCO3 ABG O2 Saturation ABG Base Excess ABG Hemoglobin ABG Oxyhemoglobin ABG Sodium ABG Potassium ABG Chloride ABG Glucose Oxyhemoglobin Carboxyhemoglobin Sodium 131 L Potassium Chloride Carbon Dioxide 21 L BUN 23 H Creatinine 0.6 L Glucose 342 H POC Glucose Hemoglobin A1c Lactic Acid 2.60 H* Calcium 7.0 L Magnesium Ferritin Total Bilirubin AST ALT Alkaline Phosphatase Lactate Dehydrogenase Total Creatine Kinase C-Reactive Protein Total Protein Albumin 2.4 L Triglycerides Arterial Blood Glucose Arterial Blood Ionized Calcium Ur Specific [place] Urine WBC (Auto) Vancomycin Trough Coronavirus (PCR) 11/16/20 11/16/20 11/16/20 05:29 08:11 12:11 WBC RBC Hgb Hct MCHC RDW Plt Count Lymph % (Auto) [place] % (Auto) Lymph # (Auto) [place] # (Auto) Baso # (Auto) Seg Neutrophils % Seg Neuts % (Manual) Lymphocytes % (Manual) Nucleated RBC % Seg Neutrophils # Seg Neutrophils # Man Lymphocytes # (Manual) D-Dimer ABG pH POC ABG pCO2 POC ABG pO2 ABG pO2 ABG HCO3 ABG O2 Saturation ABG Base Excess ABG Hemoglobin ABG Oxyhemoglobin ABG Sodium ABG Potassium ABG Chloride ABG Glucose Oxyhemoglobin Carboxyhemoglobin Sodium Potassium Chloride Carbon Dioxide BUN Creatinine Glucose POC Glucose 329 H 320 H Hemoglobin A1c 11.7 H Lactic Acid Calcium Magnesium Ferritin Total Bilirubin AST ALT Alkaline Phosphatase Lactate Dehydrogenase Total Creatine Kinase C-Reactive Protein Total Protein Albumin Triglycerides Arterial Blood Glucose Arterial Blood Ionized Calcium Ur Specific [place] Urine WBC (Auto) Vancomycin Trough Coronavirus (PCR) 11/16/20 11/16/20 11/16/20 16:13 21:29 Unknown WBC RBC Hgb Hct MCHC RDW Plt Count Lymph % (Auto) [place] % (Auto) Lymph # (Auto) [place] # (Auto) Baso # (Auto) Seg Neutrophils % Seg Neuts % (Manual) Lymphocytes % (Manual) Nucleated RBC % Seg Neutrophils # Seg Neutrophils # Man Lymphocytes # (Manual) D-Dimer ABG pH POC ABG pCO2 POC ABG pO2 ABG pO2 ABG HCO3 ABG O2 Saturation ABG Base Excess ABG Hemoglobin ABG Oxyhemoglobin ABG Sodium ABG Potassium ABG Chloride ABG Glucose Oxyhemoglobin Carboxyhemoglobin Sodium Potassium Chloride Carbon Dioxide BUN Creatinine Glucose POC Glucose 257 H 376 H Hemoglobin A1c Lactic Acid Calcium Magnesium Ferritin Total Bilirubin AST ALT Alkaline Phosphatase Lactate Dehydrogenase Total Creatine Kinase C-Reactive Protein Total Protein Albumin Triglycerides Arterial Blood Glucose Arterial Blood Ionized Calcium Ur Specific [place] Urine WBC (Auto) Vancomycin Trough Coronavirus (PCR) Positive A 11/17/20 11/17/20 11/17/20 07:42 12:07 17:25 WBC RBC Hgb Hct MCHC RDW Plt Count Lymph % (Auto) [place] % (Auto) Lymph # (Auto) [place] # (Auto) Baso # (Auto) Seg Neutrophils % Seg Neuts % (Manual) Lymphocytes % (Manual) Nucleated RBC % Seg Neutrophils # Seg Neutrophils # Man Lymphocytes # (Manual) D-Dimer ABG pH POC ABG pCO2 POC ABG pO2 ABG pO2 ABG HCO3 ABG O2 Saturation ABG Base Excess ABG Hemoglobin ABG Oxyhemoglobin ABG Sodium ABG Potassium ABG Chloride ABG Glucose Oxyhemoglobin Carboxyhemoglobin Sodium Potassium Chloride Carbon Dioxide BUN Creatinine Glucose POC Glucose 231 H 380 H 302 H Hemoglobin A1c Lactic Acid Calcium Magnesium Ferritin Total Bilirubin AST ALT Alkaline Phosphatase Lactate Dehydrogenase Total Creatine Kinase C-Reactive Protein Total Protein Albumin Triglycerides Arterial Blood Glucose Arterial Blood Ionized Calcium Ur Specific [place] Urine WBC (Auto) Vancomycin Trough Coronavirus (PCR) 11/17/20 11/18/20 11/18/20 21:53 04:25 07:45 WBC RBC Hgb Hct MCHC RDW Plt Count Lymph % (Auto) [place] % (Auto) Lymph # (Auto) [place] # (Auto) Baso # (Auto) Seg Neutrophils % Seg Neuts % (Manual) Lymphocytes % (Manual) Nucleated RBC % Seg Neutrophils # Seg Neutrophils # Man Lymphocytes # (Manual) D-Dimer ABG pH POC ABG pCO2 POC ABG pO2 ABG pO2 ABG HCO3 ABG O2 Saturation ABG Base Excess ABG Hemoglobin ABG Oxyhemoglobin ABG Sodium ABG Potassium ABG Chloride ABG Glucose Oxyhemoglobin Carboxyhemoglobin Sodium 136 L Potassium Chloride Carbon Dioxide BUN 24 H Creatinine 0.6 L Glucose 212 H POC Glucose 293 H 216 H Hemoglobin A1c Lactic Acid Calcium 7.4 L Magnesium Ferritin Total Bilirubin AST 41 H ALT Alkaline Phosphatase 142 H Lactate Dehydrogenase Total Creatine Kinase C-Reactive Protein Total Protein Albumin 2.3 L Triglycerides Arterial Blood Glucose Arterial Blood Ionized Calcium Ur Specific [place] Urine WBC (Auto) Vancomycin Trough Coronavirus (PCR) 11/18/20 11/18/20 11/18/20 12:28 15:58 21:37 WBC RBC Hgb Hct MCHC RDW Plt Count Lymph % (Auto) [place] % (Auto) Lymph # (Auto) [place] # (Auto) Baso # (Auto) Seg Neutrophils % Seg Neuts % (Manual) Lymphocytes % (Manual) Nucleated RBC % Seg Neutrophils # Seg Neutrophils # Man Lymphocytes # (Manual) D-Dimer ABG pH POC ABG pCO2 POC ABG pO2 ABG pO2 ABG HCO3 ABG O2 Saturation ABG Base Excess ABG Hemoglobin ABG Oxyhemoglobin ABG Sodium ABG Potassium ABG Chloride ABG Glucose Oxyhemoglobin Carboxyhemoglobin Sodium Potassium Chloride Carbon Dioxide BUN Creatinine Glucose POC Glucose 165 H 220 H 311 H Hemoglobin A1c Lactic Acid Calcium Magnesium Ferritin Total Bilirubin AST ALT Alkaline Phosphatase Lactate Dehydrogenase Total Creatine Kinase C-Reactive Protein Total Protein Albumin Triglycerides Arterial Blood Glucose Arterial Blood Ionized Calcium Ur Specific [place] Urine WBC (Auto) Vancomycin Trough Coronavirus (PCR) 11/19/20 11/19/20 11/19/20 05:35 07:40 12:39 WBC RBC Hgb Hct MCHC RDW Plt Count Lymph % (Auto) [place] % (Auto) Lymph # (Auto) [place] # (Auto) Baso # (Auto) Seg Neutrophils % Seg Neuts % (Manual) Lymphocytes % (Manual) Nucleated RBC % Seg Neutrophils # Seg Neutrophils # Man Lymphocytes # (Manual) D-Dimer ABG pH POC ABG pCO2 POC ABG pO2 ABG pO2 ABG HCO3 ABG O2 Saturation ABG Base Excess ABG Hemoglobin ABG Oxyhemoglobin ABG Sodium ABG Potassium ABG Chloride ABG Glucose Oxyhemoglobin Carboxyhemoglobin Sodium 132 L Potassium Chloride Carbon Dioxide BUN 25 H Creatinine 0.5 L Glucose 179 H POC Glucose 149 H 306 H Hemoglobin A1c Lactic Acid Calcium 7.5 L Magnesium Ferritin Total Bilirubin AST ALT Alkaline Phosphatase 139 H Lactate Dehydrogenase Total Creatine Kinase C-Reactive Protein Total Protein Albumin 2.4 L Triglycerides Arterial Blood Glucose Arterial Blood Ionized Calcium Ur Specific [place] Urine WBC (Auto) Vancomycin Trough Coronavirus (PCR) 11/19/20 11/19/20 11/20/20 16:17 21:25 08:30 WBC RBC Hgb Hct MCHC RDW Plt Count Lymph % (Auto) [place] % (Auto) Lymph # (Auto) [place] # (Auto) Baso # (Auto) Seg Neutrophils % Seg Neuts % (Manual) Lymphocytes % (Manual) Nucleated RBC % Seg Neutrophils # Seg Neutrophils # Man Lymphocytes # (Manual) D-Dimer ABG pH POC ABG pCO2 POC ABG pO2 ABG pO2 ABG HCO3 ABG O2 Saturation ABG Base Excess ABG Hemoglobin ABG Oxyhemoglobin ABG Sodium ABG Potassium ABG Chloride ABG Glucose Oxyhemoglobin Carboxyhemoglobin Sodium Potassium Chloride Carbon Dioxide BUN Creatinine Glucose POC Glucose 364 H 347 H 141 H Hemoglobin A1c Lactic Acid Calcium Magnesium Ferritin Total Bilirubin AST ALT Alkaline Phosphatase Lactate Dehydrogenase Total Creatine Kinase C-Reactive Protein Total Protein Albumin Triglycerides Arterial Blood Glucose Arterial Blood Ionized Calcium Ur Specific [place] Urine WBC (Auto) Vancomycin Trough Coronavirus (PCR) 11/20/20 11/20/20 11/20/20 08:50 11:32 16:19 WBC RBC Hgb Hct MCHC RDW Plt Count Lymph % (Auto) [place] % (Auto) Lymph # (Auto) [place] # (Auto) Baso # (Auto) Seg Neutrophils % Seg Neuts % (Manual) Lymphocytes % (Manual) Nucleated RBC % Seg Neutrophils # Seg Neutrophils # Man Lymphocytes # (Manual) D-Dimer ABG pH POC ABG pCO2 POC ABG pO2 ABG pO2 ABG HCO3 ABG O2 Saturation ABG Base Excess ABG Hemoglobin ABG Oxyhemoglobin ABG Sodium ABG Potassium ABG Chloride ABG Glucose Oxyhemoglobin Carboxyhemoglobin Sodium 132 L Potassium Chloride 97.6 L Carbon Dioxide BUN 26 H Creatinine 0.5 L Glucose 201 H POC Glucose 296 H 327 H Hemoglobin A1c Lactic Acid Calcium 7.9 L Magnesium Ferritin Total Bilirubin AST ALT Alkaline Phosphatase 137 H Lactate Dehydrogenase Total Creatine Kinase C-Reactive Protein Total Protein Albumin 2.6 L Triglycerides Arterial Blood Glucose Arterial Blood Ionized Calcium Ur Specific [place] Urine WBC (Auto) Vancomycin Trough Coronavirus (PCR) 11/20/20 11/21/20 11/21/20 22:09 07:59 13:51 WBC RBC Hgb Hct MCHC RDW Plt Count Lymph % (Auto) [place] % (Auto) Lymph # (Auto) [place] # (Auto) Baso # (Auto) Seg Neutrophils % Seg Neuts % (Manual) Lymphocytes % (Manual) Nucleated RBC % Seg Neutrophils # Seg Neutrophils # Man Lymphocytes # (Manual) D-Dimer ABG pH POC ABG pCO2 POC ABG pO2 ABG pO2 ABG HCO3 ABG O2 Saturation ABG Base Excess ABG Hemoglobin ABG Oxyhemoglobin ABG Sodium ABG Potassium ABG Chloride ABG Glucose Oxyhemoglobin Carboxyhemoglobin Sodium Potassium Chloride Carbon Dioxide BUN Creatinine Glucose POC Glucose 311 H 218 H 304 H Hemoglobin A1c Lactic Acid Calcium Magnesium Ferritin Total Bilirubin AST ALT Alkaline Phosphatase Lactate Dehydrogenase Total Creatine Kinase C-Reactive Protein Total Protein Albumin Triglycerides Arterial Blood Glucose Arterial Blood Ionized Calcium Ur Specific [place] Urine WBC (Auto) Vancomycin Trough Coronavirus (PCR) 11/21/20 11/21/20 11/21/20 16:09 21:34 23:00 WBC RBC Hgb Hct MCHC RDW Plt Count Lymph % (Auto) [place] % (Auto) Lymph # (Auto) [place] # (Auto) Baso # (Auto) Seg Neutrophils % Seg Neuts % (Manual) Lymphocytes % (Manual) Nucleated RBC % Seg Neutrophils # Seg Neutrophils # Man Lymphocytes # (Manual) D-Dimer ABG pH 7.206 L POC ABG pCO2 59.3 H POC ABG pO2 76.7 L ABG pO2 ABG HCO3 ABG O2 Saturation ABG Base Excess ABG Hemoglobin ABG Oxyhemoglobin ABG Sodium 133.1 L ABG Potassium ABG Chloride ABG Glucose 320 H Oxyhemoglobin Carboxyhemoglobin Sodium Potassium Chloride Carbon Dioxide BUN Creatinine Glucose POC Glucose 239 H 279 H Hemoglobin A1c Lactic Acid Calcium Magnesium Ferritin Total Bilirubin AST ALT Alkaline Phosphatase Lactate Dehydrogenase Total Creatine Kinase C-Reactive Protein Total Protein Albumin Triglycerides Arterial Blood Glucose 320 H Arterial Blood Ionized Calcium Ur Specific [place] Urine WBC (Auto) Vancomycin Trough Coronavirus (PCR) 11/22/20 11/22/20 11/22/20 04:52 04:52 04:52 WBC RBC Hgb Hct MCHC RDW Plt Count Lymph % (Auto) [place] % (Auto) Lymph # (Auto) [place] # (Auto) Baso # (Auto) Seg Neutrophils % Seg Neuts % (Manual) Lymphocytes % (Manual) Nucleated RBC % Seg Neutrophils # Seg Neutrophils # Man Lymphocytes # (Manual) D-Dimer 1858.36 H ABG pH POC ABG pCO2 POC ABG pO2 ABG pO2 ABG HCO3 ABG O2 Saturation ABG Base Excess ABG Hemoglobin ABG Oxyhemoglobin ABG Sodium ABG Potassium ABG Chloride ABG Glucose Oxyhemoglobin Carboxyhemoglobin Sodium Potassium Chloride Carbon Dioxide BUN Creatinine Glucose POC Glucose Hemoglobin A1c Lactic Acid Calcium Magnesium Ferritin 734.2 H Total Bilirubin AST ALT Alkaline Phosphatase Lactate Dehydrogenase 404 H Total Creatine Kinase C-Reactive Protein 2.80 H Total Protein Albumin Triglycerides Arterial Blood Glucose Arterial Blood Ionized Calcium Ur Specific [place] Urine WBC (Auto) Vancomycin Trough Coronavirus (PCR) 11/22/20 11/22/20 11/22/20 05:12 05:39 11:50 WBC RBC Hgb Hct MCHC RDW Plt Count Lymph % (Auto) [place] % (Auto) Lymph # (Auto) [place] # (Auto) Baso # (Auto) Seg Neutrophils % Seg Neuts % (Manual) Lymphocytes % (Manual) Nucleated RBC % Seg Neutrophils # Seg Neutrophils # Man Lymphocytes # (Manual) D-Dimer ABG pH POC ABG pCO2 POC ABG pO2 51.0 L ABG pO2 ABG HCO3 ABG O2 Saturation ABG Base Excess ABG Hemoglobin ABG Oxyhemoglobin ABG Sodium 131.2 L ABG Potassium 4.6 H ABG Chloride ABG Glucose 317 H Oxyhemoglobin Carboxyhemoglobin Sodium Potassium Chloride Carbon Dioxide BUN Creatinine Glucose POC Glucose 340 H 417 H Hemoglobin A1c Lactic Acid Calcium Magnesium Ferritin Total Bilirubin AST ALT Alkaline Phosphatase Lactate Dehydrogenase Total Creatine Kinase C-Reactive Protein Total Protein Albumin Triglycerides Arterial Blood Glucose 317 H Arterial Blood Ionized Calcium 4.4 L Ur Specific [place] Urine WBC (Auto) Vancomycin Trough Coronavirus (PCR) 11/22/20 11/22/20 11/22/20 12:22 12:22 17:10 WBC 14.4 H RBC Hgb Hct MCHC RDW Plt Count Lymph % (Auto) [place] % (Auto) Lymph # (Auto) [place] # (Auto) Baso # (Auto) Seg Neutrophils % Seg Neuts % (Manual) 98.0 H Lymphocytes % (Manual) Nucleated RBC % Seg Neutrophils # Seg Neutrophils # Man 14.1 H Lymphocytes # (Manual) 0.0 L D-Dimer ABG pH POC ABG pCO2 POC ABG pO2 ABG pO2 ABG HCO3 ABG O2 Saturation ABG Base Excess ABG Hemoglobin ABG Oxyhemoglobin ABG Sodium ABG Potassium ABG Chloride ABG Glucose Oxyhemoglobin Carboxyhemoglobin Sodium 132 L Potassium Chloride Carbon Dioxide BUN 36 H Creatinine 0.6 L Glucose 219 H POC Glucose 157 H Hemoglobin A1c Lactic Acid Calcium 7.2 L Magnesium Ferritin Total Bilirubin AST ALT Alkaline Phosphatase Lactate Dehydrogenase Total Creatine Kinase C-Reactive Protein Total Protein Albumin Triglycerides Arterial Blood Glucose Arterial Blood Ionized Calcium Ur Specific [place] Urine WBC (Auto) Vancomycin Trough Coronavirus (PCR) 11/22/20 11/22/20 11/22/20 18:33 21:44 23:47 WBC RBC Hgb Hct MCHC RDW Plt Count Lymph % (Auto) [place] % (Auto) Lymph # (Auto) [place] # (Auto) Baso # (Auto) Seg Neutrophils % Seg Neuts % (Manual) Lymphocytes % (Manual) Nucleated RBC % Seg Neutrophils # Seg Neutrophils # Man Lymphocytes # (Manual) D-Dimer ABG pH POC ABG pCO2 POC ABG pO2 60.8 L ABG pO2 ABG HCO3 ABG O2 Saturation ABG Base Excess ABG Hemoglobin ABG Oxyhemoglobin 88.1 L ABG Sodium 135.1 L ABG Potassium ABG Chloride ABG Glucose 141 H Oxyhemoglobin Carboxyhemoglobin Sodium Potassium Chloride Carbon Dioxide BUN Creatinine Glucose POC Glucose 117 H 123 H Hemoglobin A1c Lactic Acid Calcium Magnesium Ferritin Total Bilirubin AST ALT Alkaline Phosphatase Lactate Dehydrogenase Total Creatine Kinase C-Reactive Protein Total Protein Albumin Triglycerides Arterial Blood Glucose 141 H Arterial Blood Ionized Calcium Ur Specific [place] Urine WBC (Auto) Vancomycin Trough Coronavirus (PCR) 11/23/20 11/23/20 11/23/20 04:00 04:00 05:23 WBC 14.4 H RBC Hgb Hct MCHC RDW Plt Count Lymph % (Auto) [place] % (Auto) Lymph # (Auto) [place] # (Auto) Baso # (Auto) Seg Neutrophils % Seg Neuts % (Manual) Lymphocytes % (Manual) Nucleated RBC % Seg Neutrophils # Seg Neutrophils # Man Lymphocytes # (Manual) D-Dimer ABG pH POC ABG pCO2 POC ABG pO2 ABG pO2 ABG HCO3 ABG O2 Saturation ABG Base Excess ABG Hemoglobin ABG Oxyhemoglobin ABG Sodium ABG Potassium ABG Chloride ABG Glucose Oxyhemoglobin Carboxyhemoglobin Sodium 136 L Potassium Chloride Carbon Dioxide BUN 33 H Creatinine 0.6 L Glucose 115 H POC Glucose 173 H Hemoglobin A1c Lactic Acid Calcium 7.1 L Magnesium Ferritin Total Bilirubin AST 64 H ALT 75 H Alkaline Phosphatase Lactate Dehydrogenase Total Creatine Kinase C-Reactive Protein Total Protein 5.9 L D Albumin 2.4 L Triglycerides Arterial Blood Glucose Arterial Blood Ionized Calcium Ur Specific [place] Urine WBC (Auto) Vancomycin Trough Coronavirus (PCR) 11/23/20 11/23/20 11/23/20 05:40 11:27 17:10 WBC RBC Hgb Hct MCHC RDW Plt Count Lymph % (Auto) [place] % (Auto) Lymph # (Auto) [place] # (Auto) Baso # (Auto) Seg Neutrophils % Seg Neuts % (Manual) Lymphocytes % (Manual) Nucleated RBC % Seg Neutrophils # Seg Neutrophils # Man Lymphocytes # (Manual) D-Dimer ABG pH POC ABG pCO2 POC ABG pO2 56.5 L ABG pO2 ABG HCO3 ABG O2 Saturation ABG Base Excess ABG Hemoglobin ABG Oxyhemoglobin ABG Sodium ABG Potassium ABG Chloride 109.0 H ABG Glucose 114 H Oxyhemoglobin Carboxyhemoglobin Sodium Potassium Chloride Carbon Dioxide BUN Creatinine Glucose POC Glucose 114 H 136 H Hemoglobin A1c Lactic Acid Calcium Magnesium Ferritin Total Bilirubin AST ALT Alkaline Phosphatase Lactate Dehydrogenase Total Creatine Kinase C-Reactive Protein Total Protein Albumin Triglycerides Arterial Blood Glucose 114 H Arterial Blood Ionized Calcium 4.5 L Ur Specific [place] Urine WBC (Auto) Vancomycin Trough Coronavirus (PCR) 11/24/20 11/24/20 11/24/20 05:14 05:14 05:14 WBC RBC Hgb Hct MCHC RDW Plt Count Lymph % (Auto) [place] % (Auto) Lymph # (Auto) [place] # (Auto) Baso # (Auto) Seg Neutrophils % Seg Neuts % (Manual) Lymphocytes % (Manual) Nucleated RBC % Seg Neutrophils # Seg Neutrophils # Man Lymphocytes # (Manual) D-Dimer 1433.39 H ABG pH POC ABG pCO2 POC ABG pO2 ABG pO2 ABG HCO3 ABG O2 Saturation ABG Base Excess ABG Hemoglobin ABG Oxyhemoglobin ABG Sodium ABG Potassium ABG Chloride ABG Glucose Oxyhemoglobin Carboxyhemoglobin Sodium Potassium Chloride Carbon Dioxide BUN Creatinine Glucose POC Glucose Hemoglobin A1c Lactic Acid Calcium Magnesium Ferritin 997.5 H Total Bilirubin AST ALT Alkaline Phosphatase Lactate Dehydrogenase 463 H Total Creatine Kinase C-Reactive Protein Total Protein Albumin Triglycerides Arterial Blood Glucose Arterial Blood Ionized Calcium Ur Specific [place] Urine WBC (Auto) Vancomycin Trough Coronavirus (PCR) 11/24/20 11/24/20 11/24/20 05:31 05:36 12:05 WBC RBC Hgb Hct MCHC RDW Plt Count Lymph % (Auto) [place] % (Auto) Lymph # (Auto) [place] # (Auto) Baso # (Auto) Seg Neutrophils % Seg Neuts % (Manual) Lymphocytes % (Manual) Nucleated RBC % Seg Neutrophils # Seg Neutrophils # Man Lymphocytes # (Manual) D-Dimer ABG pH POC ABG pCO2 POC ABG pO2 57.2 L ABG pO2 ABG HCO3 ABG O2 Saturation ABG Base Excess ABG Hemoglobin ABG Oxyhemoglobin ABG Sodium ABG Potassium ABG Chloride ABG Glucose 180 H Oxyhemoglobin Carboxyhemoglobin Sodium Potassium Chloride Carbon Dioxide BUN Creatinine Glucose POC Glucose 199 H 143 H Hemoglobin A1c Lactic Acid Calcium Magnesium Ferritin Total Bilirubin AST ALT Alkaline Phosphatase Lactate Dehydrogenase Total Creatine Kinase C-Reactive Protein Total Protein Albumin Triglycerides Arterial Blood Glucose 180 H Arterial Blood Ionized Calcium 4.5 L Ur Specific [place] Urine WBC (Auto) Vancomycin Trough Coronavirus (PCR) 11/24/20 11/24/20 11/24/20 12:14 17:47 23:47 WBC RBC Hgb Hct MCHC RDW Plt Count Lymph % (Auto) [place] % (Auto) Lymph # (Auto) [place] # (Auto) Baso # (Auto) Seg Neutrophils % Seg Neuts % (Manual) Lymphocytes % (Manual) Nucleated RBC % Seg Neutrophils # Seg Neutrophils # Man Lymphocytes # (Manual) D-Dimer ABG pH 7.261 L POC ABG pCO2 59.7 H POC ABG pO2 75.7 L ABG pO2 ABG HCO3 ABG O2 Saturation ABG Base Excess ABG Hemoglobin ABG Oxyhemoglobin 92.5 L ABG Sodium ABG Potassium ABG Chloride 108.0 H ABG Glucose 150 H Oxyhemoglobin Carboxyhemoglobin Sodium Potassium Chloride Carbon Dioxide BUN Creatinine Glucose POC Glucose 223 H 179 H Hemoglobin A1c Lactic Acid Calcium Magnesium Ferritin Total Bilirubin AST ALT Alkaline Phosphatase Lactate Dehydrogenase Total Creatine Kinase C-Reactive Protein Total Protein Albumin Triglycerides Arterial Blood Glucose 150 H Arterial Blood Ionized Calcium Ur Specific [place] Urine WBC (Auto) Vancomycin Trough Coronavirus (PCR) 11/25/20 11/25/20 11/25/20 03:29 05:07 05:15 WBC 13.9 H RBC Hgb Hct MCHC RDW Plt Count Lymph % (Auto) [place] % (Auto) Lymph # (Auto) [place] # (Auto) Baso # (Auto) Seg Neutrophils % Seg Neuts % (Manual) 97.0 H Lymphocytes % (Manual) Nucleated RBC % Seg Neutrophils # Seg Neutrophils # Man 13.5 H Lymphocytes # (Manual) 0.0 L D-Dimer ABG pH 7.272 L POC ABG pCO2 69.0 H POC ABG pO2 132.9 H ABG pO2 ABG HCO3 ABG O2 Saturation ABG Base Excess ABG Hemoglobin ABG Oxyhemoglobin ABG Sodium ABG Potassium ABG Chloride ABG Glucose 174 H Oxyhemoglobin Carboxyhemoglobin Sodium Potassium Chloride Carbon Dioxide BUN Creatinine Glucose POC Glucose 168 H Hemoglobin A1c Lactic Acid Calcium Magnesium Ferritin Total Bilirubin AST ALT Alkaline Phosphatase Lactate Dehydrogenase Total Creatine Kinase C-Reactive Protein Total Protein Albumin Triglycerides Arterial Blood Glucose 174 H Arterial Blood Ionized Calcium Ur Specific [place] Urine WBC (Auto) Vancomycin Trough Coronavirus (PCR) 11/25/20 11/25/20 11/25/20 05:15 11:25 17:35 WBC RBC Hgb Hct MCHC RDW Plt Count Lymph % (Auto) [place] % (Auto) Lymph # (Auto) [place] # (Auto) Baso # (Auto) Seg Neutrophils % Seg Neuts % (Manual) Lymphocytes % (Manual) Nucleated RBC % Seg Neutrophils # Seg Neutrophils # Man Lymphocytes # (Manual) D-Dimer ABG pH POC ABG pCO2 POC ABG pO2 ABG pO2 ABG HCO3 ABG O2 Saturation ABG Base Excess ABG Hemoglobin ABG Oxyhemoglobin ABG Sodium ABG Potassium ABG Chloride ABG Glucose Oxyhemoglobin Carboxyhemoglobin Sodium Potassium Chloride Carbon Dioxide BUN 29 H Creatinine 0.5 L Glucose 161 H POC Glucose 224 H 228 H Hemoglobin A1c Lactic Acid Calcium 7.8 L Magnesium Ferritin Total Bilirubin AST 89 H ALT 129 H Alkaline Phosphatase Lactate Dehydrogenase Total Creatine Kinase C-Reactive Protein Total Protein 5.8 L Albumin 2.5 L Triglycerides Arterial Blood Glucose Arterial Blood Ionized Calcium Ur Specific [place] Urine WBC (Auto) Vancomycin Trough Coronavirus (PCR) 11/25/20 11/25/20 11/26/20 20:45 23:28 04:00 WBC RBC Hgb Hct MCHC RDW Plt Count Lymph % (Auto) [place] % (Auto) Lymph # (Auto) [place] # (Auto) Baso # (Auto) Seg Neutrophils % Seg Neuts % (Manual) Lymphocytes % (Manual) Nucleated RBC % Seg Neutrophils # Seg Neutrophils # Man Lymphocytes # (Manual) D-Dimer ABG pH POC ABG pCO2 POC ABG pO2 ABG pO2 ABG HCO3 ABG O2 Saturation ABG Base Excess ABG Hemoglobin ABG Oxyhemoglobin ABG Sodium ABG Potassium ABG Chloride ABG Glucose Oxyhemoglobin Carboxyhemoglobin Sodium Potassium Chloride Carbon Dioxide BUN Creatinine Glucose POC Glucose 177 H 243 H Hemoglobin A1c Lactic Acid Calcium Magnesium Ferritin 778.8 H Total Bilirubin AST ALT Alkaline Phosphatase Lactate Dehydrogenase Total Creatine Kinase C-Reactive Protein Total Protein Albumin Triglycerides Arterial Blood Glucose Arterial Blood Ionized Calcium Ur Specific [place] Urine WBC (Auto) Vancomycin Trough Coronavirus (PCR) 11/26/20 11/26/20 11/26/20 04:00 05:34 06:04 WBC RBC Hgb Hct MCHC RDW Plt Count Lymph % (Auto) [place] % (Auto) Lymph # (Auto) [place] # (Auto) Baso # (Auto) Seg Neutrophils % Seg Neuts % (Manual) Lymphocytes % (Manual) Nucleated RBC % Seg Neutrophils # Seg Neutrophils # Man Lymphocytes # (Manual) D-Dimer 926.11 H ABG pH POC ABG pCO2 POC ABG pO2 ABG pO2 ABG HCO3 ABG O2 Saturation ABG Base Excess ABG Hemoglobin ABG Oxyhemoglobin ABG Sodium ABG Potassium ABG Chloride ABG Glucose Oxyhemoglobin Carboxyhemoglobin Sodium Potassium Chloride Carbon Dioxide 39 H D BUN 30 H Creatinine 0.5 L Glucose 193 H POC Glucose 178 H Hemoglobin A1c Lactic Acid Calcium 7.7 L Magnesium Ferritin Total Bilirubin AST 65 H ALT 132 H Alkaline Phosphatase Lactate Dehydrogenase 288 H Total Creatine Kinase C-Reactive Protein 1.40 H Total Protein 5.7 L Albumin 2.4 L Triglycerides Arterial Blood Glucose Arterial Blood Ionized Calcium Ur Specific [place] Urine WBC (Auto) Vancomycin Trough Coronavirus (PCR) 11/26/20 11/26/20 11/26/20 06:04 08:47 11:20 WBC 12.4 H RBC Hgb Hct MCHC RDW Plt Count Lymph % (Auto) [place] % (Auto) Lymph # (Auto) [place] # (Auto) Baso # (Auto) Seg Neutrophils % Seg Neuts % (Manual) 98.0 H Lymphocytes % (Manual) 1.0 L Nucleated RBC % Seg Neutrophils # Seg Neutrophils # Man 12.2 H Lymphocytes # (Manual) 0.1 L D-Dimer ABG pH POC ABG pCO2 75.2 H POC ABG pO2 61.9 L ABG pO2 ABG HCO3 ABG O2 Saturation ABG Base Excess ABG Hemoglobin ABG Oxyhemoglobin 90.3 L ABG Sodium ABG Potassium ABG Chloride ABG Glucose 243 H Oxyhemoglobin Carboxyhemoglobin Sodium Potassium Chloride Carbon Dioxide BUN Creatinine Glucose POC Glucose 255 H Hemoglobin A1c Lactic Acid Calcium Magnesium Ferritin Total Bilirubin AST ALT Alkaline Phosphatase Lactate Dehydrogenase Total Creatine Kinase C-Reactive Protein Total Protein Albumin Triglycerides Arterial Blood Glucose 243 H Arterial Blood Ionized Calcium Ur Specific [place] Urine WBC (Auto) Vancomycin Trough Coronavirus (PCR) 11/26/20 11/26/20 11/26/20 16:20 17:15 23:41 WBC RBC Hgb Hct MCHC RDW Plt Count Lymph % (Auto) [place] % (Auto) Lymph # (Auto) [place] # (Auto) Baso # (Auto) Seg Neutrophils % Seg Neuts % (Manual) Lymphocytes % (Manual) Nucleated RBC % Seg Neutrophils # Seg Neutrophils # Man Lymphocytes # (Manual) D-Dimer ABG pH POC ABG pCO2 66.6 H POC ABG pO2 78.1 L ABG pO2 ABG HCO3 ABG O2 Saturation ABG Base Excess ABG Hemoglobin ABG Oxyhemoglobin ABG Sodium ABG Potassium ABG Chloride ABG Glucose 244 H Oxyhemoglobin Carboxyhemoglobin Sodium Potassium Chloride Carbon Dioxide BUN Creatinine Glucose POC Glucose 219 H 210 H Hemoglobin A1c Lactic Acid Calcium Magnesium Ferritin Total Bilirubin AST ALT Alkaline Phosphatase Lactate Dehydrogenase Total Creatine Kinase C-Reactive Protein Total Protein Albumin Triglycerides Arterial Blood Glucose 244 H Arterial Blood Ionized Calcium Ur Specific [place] Urine WBC (Auto) Vancomycin Trough Coronavirus (PCR) 11/27/20 11/27/20 11/27/20 04:46 05:38 06:25 WBC 13.8 H RBC Hgb Hct MCHC RDW Plt Count Lymph % (Auto) 2.0 L [place] % (Auto) Lymph # (Auto) 0.3 L [place] # (Auto) Baso # (Auto) Seg Neutrophils % Seg Neuts % (Manual) 96.0 H Lymphocytes % (Manual) Nucleated RBC % Seg Neutrophils # 12.7 H Seg Neutrophils # Man 13.2 H Lymphocytes # (Manual) 0.0 L D-Dimer ABG pH POC ABG pCO2 63.0 H POC ABG pO2 53.6 L ABG pO2 ABG HCO3 ABG O2 Saturation ABG Base Excess ABG Hemoglobin ABG Oxyhemoglobin 87.8 L ABG Sodium 115.4 L ABG Potassium ABG Chloride ABG Glucose 219 H Oxyhemoglobin Carboxyhemoglobin Sodium Potassium Chloride Carbon Dioxide BUN Creatinine Glucose POC Glucose 227 H Hemoglobin A1c Lactic Acid Calcium Magnesium Ferritin Total Bilirubin AST ALT Alkaline Phosphatase Lactate Dehydrogenase Total Creatine Kinase C-Reactive Protein Total Protein Albumin Triglycerides Arterial Blood Glucose 219 H Arterial Blood Ionized Calcium Ur Specific [place] Urine WBC (Auto) Vancomycin Trough Coronavirus (PCR) 11/27/20 11/27/20 11/27/20 06:25 18:05 23:29 WBC RBC Hgb Hct MCHC RDW Plt Count Lymph % (Auto) [place] % (Auto) Lymph # (Auto) [place] # (Auto) Baso # (Auto) Seg Neutrophils % Seg Neuts % (Manual) Lymphocytes % (Manual) Nucleated RBC % Seg Neutrophils # Seg Neutrophils # Man Lymphocytes # (Manual) D-Dimer ABG pH POC ABG pCO2 POC ABG pO2 ABG pO2 ABG HCO3 ABG O2 Saturation ABG Base Excess ABG Hemoglobin ABG Oxyhemoglobin ABG Sodium ABG Potassium ABG Chloride ABG Glucose Oxyhemoglobin Carboxyhemoglobin Sodium Potassium Chloride Carbon Dioxide 38 H BUN 34 H Creatinine 0.4 L Glucose 243 H POC Glucose 329 H 227 H Hemoglobin A1c Lactic Acid Calcium 7.9 L Magnesium Ferritin Total Bilirubin AST 50 H ALT 110 H Alkaline Phosphatase Lactate Dehydrogenase Total Creatine Kinase C-Reactive Protein Total Protein 6.1 L Albumin 2.4 L Triglycerides Arterial Blood Glucose Arterial Blood Ionized Calcium Ur Specific [place] Urine WBC (Auto) Vancomycin Trough Coronavirus (PCR) 11/28/20 11/28/20 11/28/20 03:45 03:45 03:46 WBC 12.2 H RBC Hgb Hct MCHC RDW Plt Count Lymph % (Auto) [place] % (Auto) Lymph # (Auto) [place] # (Auto) Baso # (Auto) Seg Neutrophils % Seg Neuts % (Manual) 93.0 H Lymphocytes % (Manual) 2.0 L Nucleated RBC % Seg Neutrophils # Seg Neutrophils # Man 11.3 H Lymphocytes # (Manual) 0.2 L D-Dimer ABG pH POC ABG pCO2 68.4 H POC ABG pO2 55.4 L ABG pO2 ABG HCO3 ABG O2 Saturation ABG Base Excess ABG Hemoglobin ABG Oxyhemoglobin ABG Sodium ABG Potassium ABG Chloride ABG Glucose 197 H Oxyhemoglobin Carboxyhemoglobin Sodium Potassium Chloride Carbon Dioxide 36 H BUN 37 H Creatinine 0.4 L Glucose 194 H POC Glucose Hemoglobin A1c Lactic Acid Calcium 8.1 L Magnesium Ferritin Total Bilirubin AST ALT 86 H Alkaline Phosphatase Lactate Dehydrogenase Total Creatine Kinase C-Reactive Protein Total Protein 6.0 L Albumin 2.3 L Triglycerides Arterial Blood Glucose 197 H Arterial Blood Ionized Calcium Ur Specific [place] Urine WBC (Auto) Vancomycin Trough Coronavirus (PCR) 11/28/20 11/28/20 11/29/20 05:24 12:21 04:41 WBC RBC Hgb Hct MCHC RDW Plt Count Lymph % (Auto) [place] % (Auto) Lymph # (Auto) [place] # (Auto) Baso # (Auto) Seg Neutrophils % Seg Neuts % (Manual) Lymphocytes % (Manual) Nucleated RBC % Seg Neutrophils # Seg Neutrophils # Man Lymphocytes # (Manual) D-Dimer ABG pH POC ABG pCO2 55.1 H POC ABG pO2 53.6 L ABG pO2 ABG HCO3 ABG O2 Saturation ABG Base Excess ABG Hemoglobin ABG Oxyhemoglobin 87.1 L ABG Sodium 131.2 L ABG Potassium ABG Chloride ABG Glucose 164 H Oxyhemoglobin Carboxyhemoglobin Sodium Potassium Chloride Carbon Dioxide BUN Creatinine Glucose POC Glucose 173 H 126 H Hemoglobin A1c Lactic Acid Calcium Magnesium Ferritin Total Bilirubin AST ALT Alkaline Phosphatase Lactate Dehydrogenase Total Creatine Kinase C-Reactive Protein Total Protein Albumin Triglycerides Arterial Blood Glucose 164 H Arterial Blood Ionized Calcium 4.4 L Ur Specific [place] Urine WBC (Auto) Vancomycin Trough Coronavirus (PCR) 11/29/20 11/29/20 11/29/20 05:29 12:41 13:28 WBC RBC Hgb Hct MCHC RDW Plt Count Lymph % (Auto) [place] % (Auto) Lymph # (Auto) [place] # (Auto) Baso # (Auto) Seg Neutrophils % Seg Neuts % (Manual) Lymphocytes % (Manual) Nucleated RBC % Seg Neutrophils # Seg Neutrophils # Man Lymphocytes # (Manual) D-Dimer ABG pH POC ABG pCO2 POC ABG pO2 ABG pO2 ABG HCO3 ABG O2 Saturation ABG Base Excess ABG Hemoglobin ABG Oxyhemoglobin ABG Sodium ABG Potassium ABG Chloride ABG Glucose Oxyhemoglobin Carboxyhemoglobin Sodium Potassium Chloride Carbon Dioxide 40 H BUN 32 H Creatinine 0.4 L Glucose 274 H POC Glucose 173 H 257 H Hemoglobin A1c Lactic Acid Calcium 7.2 L Magnesium Ferritin Total Bilirubin AST 57 H ALT 102 H Alkaline Phosphatase Lactate Dehydrogenase Total Creatine Kinase C-Reactive Protein Total Protein 5.7 L Albumin 2.1 L Triglycerides Arterial Blood Glucose Arterial Blood Ionized Calcium Ur Specific [place] Urine WBC (Auto) Vancomycin Trough Coronavirus (PCR) 11/29/20 11/29/20 11/29/20 15:40 17:36 21:26 WBC RBC Hgb Hct MCHC RDW Plt Count Lymph % (Auto) [place] % (Auto) Lymph # (Auto) [place] # (Auto) Baso # (Auto) Seg Neutrophils % Seg Neuts % (Manual) Lymphocytes % (Manual) Nucleated RBC % Seg Neutrophils # Seg Neutrophils # Man Lymphocytes # (Manual) D-Dimer ABG pH POC ABG pCO2 POC ABG pO2 ABG pO2 ABG HCO3 ABG O2 Saturation ABG Base Excess ABG Hemoglobin ABG Oxyhemoglobin ABG Sodium ABG Potassium ABG Chloride ABG Glucose Oxyhemoglobin Carboxyhemoglobin Sodium Potassium Chloride Carbon Dioxide BUN Creatinine Glucose POC Glucose 240 H 244 H Hemoglobin A1c Lactic Acid Calcium Magnesium Ferritin Total Bilirubin AST ALT Alkaline Phosphatase Lactate Dehydrogenase Total Creatine Kinase C-Reactive Protein Total Protein Albumin Triglycerides Arterial Blood Glucose Arterial Blood Ionized Calcium Ur Specific [place] Urine WBC (Auto) Vancomycin Trough 4.0 L Coronavirus (PCR) 11/29/20 11/30/20 11/30/20 23:26 03:30 03:30 WBC RBC Hgb Hct MCHC RDW Plt Count Lymph % (Auto) [place] % (Auto) Lymph # (Auto) [place] # (Auto) Baso # (Auto) Seg Neutrophils % Seg Neuts % (Manual) 97.0 H Lymphocytes % (Manual) 1.0 L Nucleated RBC % Seg Neutrophils # Seg Neutrophils # Man 9.9 H Lymphocytes # (Manual) 0.1 L D-Dimer ABG pH POC ABG pCO2 POC ABG pO2 ABG pO2 ABG HCO3 ABG O2 Saturation ABG Base Excess ABG Hemoglobin ABG Oxyhemoglobin ABG Sodium ABG Potassium ABG Chloride ABG Glucose Oxyhemoglobin Carboxyhemoglobin Sodium Potassium Chloride Carbon Dioxide 38 H BUN 34 H Creatinine 0.4 L Glucose 305 H POC Glucose 283 H Hemoglobin A1c Lactic Acid Calcium 7.6 L Magnesium Ferritin Total Bilirubin AST ALT 89 H Alkaline Phosphatase Lactate Dehydrogenase Total Creatine Kinase C-Reactive Protein Total Protein 6.0 L Albumin 2.3 L Triglycerides Arterial Blood Glucose Arterial Blood Ionized Calcium Ur Specific [place] Urine WBC (Auto) Vancomycin Trough Coronavirus (PCR) 11/30/20 11/30/20 11/30/20 03:57 05:22 12:05 WBC RBC Hgb Hct MCHC RDW Plt Count Lymph % (Auto) [place] % (Auto) Lymph # (Auto) [place] # (Auto) Baso # (Auto) Seg Neutrophils % Seg Neuts % (Manual) Lymphocytes % (Manual) Nucleated RBC % Seg Neutrophils # Seg Neutrophils # Man Lymphocytes # (Manual) D-Dimer ABG pH POC ABG pCO2 60.8 H POC ABG pO2 51.1 L ABG pO2 ABG HCO3 ABG O2 Saturation ABG Base Excess ABG Hemoglobin ABG Oxyhemoglobin 84.6 L ABG Sodium ABG Potassium ABG Chloride ABG Glucose 315 H Oxyhemoglobin Carboxyhemoglobin Sodium Potassium Chloride Carbon Dioxide BUN Creatinine Glucose POC Glucose 295 H 413 H Hemoglobin A1c Lactic Acid Calcium Magnesium Ferritin Total Bilirubin AST ALT Alkaline Phosphatase Lactate Dehydrogenase Total Creatine Kinase C-Reactive Protein Total Protein Albumin Triglycerides Arterial Blood Glucose 315 H Arterial Blood Ionized Calcium 4.5 L Ur Specific [place] Urine WBC (Auto) Vancomycin Trough Coronavirus (PCR) 11/30/20 11/30/20 12/01/20 17:24 23:25 02:14 WBC RBC Hgb Hct MCHC RDW Plt Count Lymph % (Auto) [place] % (Auto) Lymph # (Auto) [place] # (Auto) Baso # (Auto) Seg Neutrophils % Seg Neuts % (Manual) Lymphocytes % (Manual) Nucleated RBC % Seg Neutrophils # Seg Neutrophils # Man Lymphocytes # (Manual) D-Dimer ABG pH 7.278 L POC ABG pCO2 78.1 H POC ABG pO2 79.5 L ABG pO2 ABG HCO3 ABG O2 Saturation ABG Base Excess ABG Hemoglobin 11.6 L ABG Oxyhemoglobin ABG Sodium 134.5 L ABG Potassium 4.6 H ABG Chloride ABG Glucose 286 H Oxyhemoglobin Carboxyhemoglobin Sodium Potassium Chloride Carbon Dioxide BUN Creatinine Glucose POC Glucose 305 H 302 H Hemoglobin A1c Lactic Acid Calcium Magnesium Ferritin Total Bilirubin AST ALT Alkaline Phosphatase Lactate Dehydrogenase Total Creatine Kinase C-Reactive Protein Total Protein Albumin Triglycerides Arterial Blood Glucose 286 H Arterial Blood Ionized Calcium Ur Specific [place] Urine WBC (Auto) Vancomycin Trough Coronavirus (PCR) 12/01/20 12/01/20 12/01/20 03:35 03:35 05:22 WBC 13.4 H RBC 3.54 L Hgb 10.4 L Hct 31.8 L MCHC RDW Plt Count Lymph % (Auto) [place] % (Auto) Lymph # (Auto) [place] # (Auto) Baso # (Auto) Seg Neutrophils % Seg Neuts % (Manual) 95.0 H Lymphocytes % (Manual) 3.0 L Nucleated RBC % Seg Neutrophils # Seg Neutrophils # Man 12.7 H Lymphocytes # (Manual) 0.4 L D-Dimer ABG pH POC ABG pCO2 POC ABG pO2 ABG pO2 ABG HCO3 ABG O2 Saturation ABG Base Excess ABG Hemoglobin ABG Oxyhemoglobin ABG Sodium ABG Potassium ABG Chloride ABG Glucose Oxyhemoglobin Carboxyhemoglobin Sodium Potassium Chloride Carbon Dioxide 35 H BUN 34 H Creatinine 0.5 L Glucose 279 H POC Glucose 259 H Hemoglobin A1c Lactic Acid Calcium 7.6 L Magnesium Ferritin Total Bilirubin AST ALT 63 H Alkaline Phosphatase Lactate Dehydrogenase Total Creatine Kinase C-Reactive Protein Total Protein 4.8 L Albumin 2.1 L Triglycerides Arterial Blood Glucose Arterial Blood Ionized Calcium Ur Specific [place] Urine WBC (Auto) Vancomycin Trough Coronavirus (PCR) 12/01/20 12/01/20 12/01/20 12:05 17:40 23:46 WBC RBC Hgb Hct MCHC RDW Plt Count Lymph % (Auto) [place] % (Auto) Lymph # (Auto) [place] # (Auto) Baso # (Auto) Seg Neutrophils % Seg Neuts % (Manual) Lymphocytes % (Manual) Nucleated RBC % Seg Neutrophils # Seg Neutrophils # Man Lymphocytes # (Manual) D-Dimer ABG pH POC ABG pCO2 POC ABG pO2 ABG pO2 ABG HCO3 ABG O2 Saturation ABG Base Excess ABG Hemoglobin ABG Oxyhemoglobin ABG Sodium ABG Potassium ABG Chloride ABG Glucose Oxyhemoglobin Carboxyhemoglobin Sodium Potassium Chloride Carbon Dioxide BUN Creatinine Glucose POC Glucose 197 H 244 H 284 H Hemoglobin A1c Lactic Acid Calcium Magnesium Ferritin Total Bilirubin AST ALT Alkaline Phosphatase Lactate Dehydrogenase Total Creatine Kinase C-Reactive Protein Total Protein Albumin Triglycerides Arterial Blood Glucose Arterial Blood Ionized Calcium Ur Specific [place] Urine WBC (Auto) Vancomycin Trough Coronavirus (PCR) 12/02/20 12/02/20 12/02/20 02:14 03:03 04:11 WBC 16.5 H RBC 3.55 L Hgb 10.5 L Hct 31.9 L MCHC RDW Plt Count Lymph % (Auto) [place] % (Auto) Lymph # (Auto) [place] # (Auto) Baso # (Auto) Seg Neutrophils % Seg Neuts % (Manual) 90.0 H Lymphocytes % (Manual) 3.0 L Nucleated RBC % Seg Neutrophils # Seg Neutrophils # Man 14.9 H Lymphocytes # (Manual) 0.5 L D-Dimer ABG pH POC ABG pCO2 74.8 H POC ABG pO2 58.9 L ABG pO2 ABG HCO3 ABG O2 Saturation ABG Base Excess ABG Hemoglobin 11.5 L ABG Oxyhemoglobin ABG Sodium ABG Potassium ABG Chloride ABG Glucose 264 H Oxyhemoglobin Carboxyhemoglobin Sodium Potassium Chloride Carbon Dioxide 37 H BUN 30 H Creatinine 0.4 L Glucose 245 H POC Glucose Hemoglobin A1c Lactic Acid Calcium 7.5 L Magnesium Ferritin Total Bilirubin AST ALT Alkaline Phosphatase Lactate Dehydrogenase Total Creatine Kinase C-Reactive Protein Total Protein 5.2 L Albumin 2.2 L Triglycerides Arterial Blood Glucose 264 H Arterial Blood Ionized Calcium 4.5 L Ur Specific [place] Urine WBC (Auto) Vancomycin Trough Coronavirus (PCR) 12/02/20 12/02/20 12/02/20 05:19 11:46 17:52 WBC RBC Hgb Hct MCHC RDW Plt Count Lymph % (Auto) [place] % (Auto) Lymph # (Auto) [place] # (Auto) Baso # (Auto) Seg Neutrophils % Seg Neuts % (Manual) Lymphocytes % (Manual) Nucleated RBC % Seg Neutrophils # Seg Neutrophils # Man Lymphocytes # (Manual) D-Dimer ABG pH POC ABG pCO2 POC ABG pO2 ABG pO2 ABG HCO3 ABG O2 Saturation ABG Base Excess ABG Hemoglobin ABG Oxyhemoglobin ABG Sodium ABG Potassium ABG Chloride ABG Glucose Oxyhemoglobin Carboxyhemoglobin Sodium Potassium Chloride Carbon Dioxide BUN Creatinine Glucose POC Glucose 238 H 236 H 233 H Hemoglobin A1c Lactic Acid Calcium Magnesium Ferritin Total Bilirubin AST ALT Alkaline Phosphatase Lactate Dehydrogenase Total Creatine Kinase C-Reactive Protein Total Protein Albumin Triglycerides Arterial Blood Glucose Arterial Blood Ionized Calcium Ur Specific [place] Urine WBC (Auto) Vancomycin Trough Coronavirus (PCR) 12/02/20 12/03/20 12/03/20 23:23 03:21 04:35 WBC RBC Hgb Hct MCHC RDW Plt Count 112 L Lymph % (Auto) [place] % (Auto) Lymph # (Auto) [place] # (Auto) Baso # (Auto) Seg Neutrophils % Seg Neuts % (Manual) 93.0 H Lymphocytes % (Manual) 4.0 L Nucleated RBC % Seg Neutrophils # Seg Neutrophils # Man 9.1 H Lymphocytes # (Manual) 0.4 L D-Dimer ABG pH 7.299 L POC ABG pCO2 82.1 H POC ABG pO2 62.4 L ABG pO2 ABG HCO3 ABG O2 Saturation ABG Base Excess ABG Hemoglobin 11.5 L ABG Oxyhemoglobin 89.6 L ABG Sodium 134.3 L ABG Potassium ABG Chloride 95.0 L ABG Glucose 203 H Oxyhemoglobin Carboxyhemoglobin Sodium Potassium Chloride Carbon Dioxide BUN Creatinine Glucose POC Glucose 213 H Hemoglobin A1c Lactic Acid Calcium Magnesium Ferritin Total Bilirubin AST ALT Alkaline Phosphatase Lactate Dehydrogenase Total Creatine Kinase C-Reactive Protein Total Protein Albumin Triglycerides Arterial Blood Glucose 203 H Arterial Blood Ionized Calcium 4.5 L Ur Specific [place] Urine WBC (Auto) Vancomycin Trough Coronavirus (PCR) 12/03/20 12/03/20 12/03/20 04:35 05:42 11:28 WBC RBC Hgb Hct MCHC RDW Plt Count Lymph % (Auto) [place] % (Auto) Lymph # (Auto) [place] # (Auto) Baso # (Auto) Seg Neutrophils % Seg Neuts % (Manual) Lymphocytes % (Manual) Nucleated RBC % Seg Neutrophils # Seg Neutrophils # Man Lymphocytes # (Manual) D-Dimer ABG pH POC ABG pCO2 POC ABG pO2 ABG pO2 ABG HCO3 ABG O2 Saturation ABG Base Excess ABG Hemoglobin ABG Oxyhemoglobin ABG Sodium ABG Potassium ABG Chloride ABG Glucose Oxyhemoglobin Carboxyhemoglobin Sodium Potassium Chloride 97.8 L Carbon Dioxide 43 H* BUN 25 H Creatinine 0.3 L Glucose 214 H POC Glucose 193 H 211 H Hemoglobin A1c Lactic Acid Calcium 7.7 L Magnesium Ferritin Total Bilirubin AST ALT 63 H Alkaline Phosphatase 132 H Lactate Dehydrogenase Total Creatine Kinase C-Reactive Protein Total Protein 5.1 L Albumin 2.4 L Triglycerides Arterial Blood Glucose Arterial Blood Ionized Calcium Ur Specific [place] Urine WBC (Auto) Vancomycin Trough Coronavirus (PCR) 12/03/20 12/03/20 12/04/20 17:45 23:57 00:11 WBC RBC Hgb Hct MCHC RDW Plt Count Lymph % (Auto) [place] % (Auto) Lymph # (Auto) [place] # (Auto) Baso # (Auto) Seg Neutrophils % Seg Neuts % (Manual) Lymphocytes % (Manual) Nucleated RBC % Seg Neutrophils # Seg Neutrophils # Man Lymphocytes # (Manual) D-Dimer ABG pH POC ABG pCO2 POC ABG pO2 ABG pO2 ABG HCO3 ABG O2 Saturation ABG Base Excess ABG Hemoglobin ABG Oxyhemoglobin ABG Sodium ABG Potassium ABG Chloride ABG Glucose Oxyhemoglobin Carboxyhemoglobin Sodium Potassium Chloride Carbon Dioxide BUN Creatinine Glucose POC Glucose 231 H 240 H 239 H Hemoglobin A1c Lactic Acid Calcium Magnesium Ferritin Total Bilirubin AST ALT Alkaline Phosphatase Lactate Dehydrogenase Total Creatine Kinase C-Reactive Protein Total Protein Albumin Triglycerides Arterial Blood Glucose Arterial Blood Ionized Calcium Ur Specific [place] Urine WBC (Auto) Vancomycin Trough Coronavirus (PCR) 12/04/20 12/04/20 12/04/20 04:00 05:20 05:34 WBC RBC Hgb Hct MCHC RDW Plt Count Lymph % (Auto) [place] % (Auto) Lymph # (Auto) [place] # (Auto) Baso # (Auto) Seg Neutrophils % Seg Neuts % (Manual) Lymphocytes % (Manual) Nucleated RBC % Seg Neutrophils # Seg Neutrophils # Man Lymphocytes # (Manual) D-Dimer ABG pH POC ABG pCO2 84.4 H POC ABG pO2 68.0 L ABG pO2 ABG HCO3 ABG O2 Saturation ABG Base Excess ABG Hemoglobin 11.6 L ABG Oxyhemoglobin ABG Sodium 130.9 L ABG Potassium ABG Chloride 90.0 L ABG Glucose 244 H Oxyhemoglobin Carboxyhemoglobin Sodium Potassium Chloride Carbon Dioxide BUN Creatinine Glucose POC Glucose 241 H 213 H Hemoglobin A1c Lactic Acid Calcium Magnesium Ferritin Total Bilirubin AST ALT Alkaline Phosphatase Lactate Dehydrogenase Total Creatine Kinase C-Reactive Protein Total Protein Albumin Triglycerides Arterial Blood Glucose 244 H Arterial Blood Ionized Calcium 4.4 L Ur Specific [place] Urine WBC (Auto) Vancomycin Trough Coronavirus (PCR) 12/04/20 12/04/20 12/04/20 11:36 16:53 23:32 WBC RBC Hgb Hct MCHC RDW Plt Count Lymph % (Auto) [place] % (Auto) Lymph # (Auto) [place] # (Auto) Baso # (Auto) Seg Neutrophils % Seg Neuts % (Manual) Lymphocytes % (Manual) Nucleated RBC % Seg Neutrophils # Seg Neutrophils # Man Lymphocytes # (Manual) D-Dimer ABG pH POC ABG pCO2 POC ABG pO2 ABG pO2 ABG HCO3 ABG O2 Saturation ABG Base Excess ABG Hemoglobin ABG Oxyhemoglobin ABG Sodium ABG Potassium ABG Chloride ABG Glucose Oxyhemoglobin Carboxyhemoglobin Sodium Potassium Chloride Carbon Dioxide BUN Creatinine Glucose POC Glucose 196 H 127 H 230 H Hemoglobin A1c Lactic Acid Calcium Magnesium Ferritin Total Bilirubin AST ALT Alkaline Phosphatase Lactate Dehydrogenase Total Creatine Kinase C-Reactive Protein Total Protein Albumin Triglycerides Arterial Blood Glucose Arterial Blood Ionized Calcium Ur Specific [place] Urine WBC (Auto) Vancomycin Trough Coronavirus (PCR) 12/04/20 12/05/20 12/05/20 Unknown 04:16 05:21 WBC RBC Hgb Hct MCHC RDW Plt Count Lymph % (Auto) [place] % (Auto) Lymph # (Auto) [place] # (Auto) Baso # (Auto) Seg Neutrophils % Seg Neuts % (Manual) Lymphocytes % (Manual) Nucleated RBC % Seg Neutrophils # Seg Neutrophils # Man Lymphocytes # (Manual) D-Dimer ABG pH POC ABG pCO2 86.7 H POC ABG pO2 58.0 L ABG pO2 ABG HCO3 ABG O2 Saturation ABG Base Excess ABG Hemoglobin 11.6 L ABG Oxyhemoglobin 89 L ABG Sodium 130.1 L ABG Potassium 4.9 H ABG Chloride 89.0 L ABG Glucose 254 H Oxyhemoglobin Carboxyhemoglobin Sodium 136 L Potassium Chloride 90.0 L Carbon Dioxide 46 H* BUN 24 H Creatinine 0.3 L Glucose 226 H POC Glucose 213 H Hemoglobin A1c Lactic Acid Calcium 7.6 L Magnesium Ferritin Total Bilirubin AST 46 H ALT 78 H Alkaline Phosphatase 172 H Lactate Dehydrogenase Total Creatine Kinase C-Reactive Protein Total Protein 6.0 L Albumin 2.8 L Triglycerides 156 H Arterial Blood Glucose 254 H Arterial Blood Ionized Calcium 4.4 L Ur Specific [place] Urine WBC (Auto) Vancomycin Trough Coronavirus (PCR) 12/05/20 12/05/20 12/05/20 11:22 17:26 23:38 WBC RBC Hgb Hct MCHC RDW Plt Count Lymph % (Auto) [place] % (Auto) Lymph # (Auto) [place] # (Auto) Baso # (Auto) Seg Neutrophils % Seg Neuts % (Manual) Lymphocytes % (Manual) Nucleated RBC % Seg Neutrophils # Seg Neutrophils # Man Lymphocytes # (Manual) D-Dimer ABG pH POC ABG pCO2 POC ABG pO2 ABG pO2 ABG HCO3 ABG O2 Saturation ABG Base Excess ABG Hemoglobin ABG Oxyhemoglobin ABG Sodium ABG Potassium ABG Chloride ABG Glucose Oxyhemoglobin Carboxyhemoglobin Sodium Potassium Chloride Carbon Dioxide BUN Creatinine Glucose POC Glucose 212 H 157 H 204 H Hemoglobin A1c Lactic Acid Calcium Magnesium Ferritin Total Bilirubin AST ALT Alkaline Phosphatase Lactate Dehydrogenase Total Creatine Kinase C-Reactive Protein Total Protein Albumin Triglycerides Arterial Blood Glucose Arterial Blood Ionized Calcium Ur Specific [place] Urine WBC (Auto) Vancomycin Trough Coronavirus (PCR) 12/06/20 12/06/20 12/06/20 04:31 04:31 05:12 WBC 17.0 H RBC 3.63 L Hgb 10.8 L D Hct 32.6 L D MCHC RDW Plt Count Lymph % (Auto) [place] % (Auto) Lymph # (Auto) [place] # (Auto) Baso # (Auto) Seg Neutrophils % Seg Neuts % (Manual) Lymphocytes % (Manual) Nucleated RBC % Seg Neutrophils # Seg Neutrophils # Man Lymphocytes # (Manual) D-Dimer ABG pH POC ABG pCO2 85.9 H POC ABG pO2 57.6 L ABG pO2 ABG HCO3 ABG O2 Saturation ABG Base Excess ABG Hemoglobin ABG Oxyhemoglobin ABG Sodium 131.2 L ABG Potassium 4.8 H ABG Chloride 86.0 L ABG Glucose 200 H Oxyhemoglobin Carboxyhemoglobin Sodium 134 L Potassium 5.1 H Chloride 88.4 L Carbon Dioxide 47 H* BUN 23 H Creatinine 0.3 L Glucose 206 H POC Glucose Hemoglobin A1c Lactic Acid Calcium 8.3 L Magnesium Ferritin Total Bilirubin AST 48 H ALT 91 H Alkaline Phosphatase 140 H Lactate Dehydrogenase Total Creatine Kinase C-Reactive Protein Total Protein 5.7 L Albumin 2.6 L Triglycerides Arterial Blood Glucose 200 H Arterial Blood Ionized Calcium 4.4 L Ur Specific [place] Urine WBC (Auto) Vancomycin Trough Coronavirus (PCR) 12/06/20 12/06/20 12/06/20 05:24 12:18 16:45 WBC RBC Hgb Hct MCHC RDW Plt Count Lymph % (Auto) [place] % (Auto) Lymph # (Auto) [place] # (Auto) Baso # (Auto) Seg Neutrophils % Seg Neuts % (Manual) Lymphocytes % (Manual) Nucleated RBC % Seg Neutrophils # Seg Neutrophils # Man Lymphocytes # (Manual) D-Dimer ABG pH POC ABG pCO2 POC ABG pO2 ABG pO2 ABG HCO3 ABG O2 Saturation ABG Base Excess ABG Hemoglobin ABG Oxyhemoglobin ABG Sodium ABG Potassium ABG Chloride ABG Glucose Oxyhemoglobin Carboxyhemoglobin Sodium Potassium Chloride Carbon Dioxide BUN Creatinine Glucose POC Glucose 186 H 187 H 150 H Hemoglobin A1c Lactic Acid Calcium Magnesium Ferritin Total Bilirubin AST ALT Alkaline Phosphatase Lactate Dehydrogenase Total Creatine Kinase C-Reactive Protein Total Protein Albumin Triglycerides Arterial Blood Glucose Arterial Blood Ionized Calcium Ur Specific [place] Urine WBC (Auto) Vancomycin Trough Coronavirus (PCR) 12/06/20 12/07/20 12/07/20 23:43 05:20 05:21 WBC RBC Hgb Hct MCHC RDW Plt Count Lymph % (Auto) [place] % (Auto) Lymph # (Auto) [place] # (Auto) Baso # (Auto) Seg Neutrophils % Seg Neuts % (Manual) Lymphocytes % (Manual) Nucleated RBC % Seg Neutrophils # Seg Neutrophils # Man Lymphocytes # (Manual) D-Dimer ABG pH POC ABG pCO2 POC ABG pO2 ABG pO2 48.4 L ABG HCO3 50.8 H ABG O2 Saturation 86.2 L ABG Base Excess 22.4 H ABG Hemoglobin 11.0 L ABG Oxyhemoglobin ABG Sodium ABG Potassium ABG Chloride ABG Glucose Oxyhemoglobin 84.0 L Carboxyhemoglobin Sodium Potassium Chloride Carbon Dioxide BUN Creatinine Glucose POC Glucose 153 H 107 H Hemoglobin A1c Lactic Acid Calcium Magnesium Ferritin Total Bilirubin AST ALT Alkaline Phosphatase Lactate Dehydrogenase Total Creatine Kinase C-Reactive Protein Total Protein Albumin Triglycerides Arterial Blood Glucose Arterial Blood Ionized Calcium Ur Specific [place] Urine WBC (Auto) Vancomycin Trough Coronavirus (PCR) 12/07/20 12/07/20 12/07/20 13:20 14:28 17:35 WBC RBC Hgb Hct MCHC RDW Plt Count Lymph % (Auto) [place] % (Auto) Lymph # (Auto) [place] # (Auto) Baso # (Auto) Seg Neutrophils % Seg Neuts % (Manual) Lymphocytes % (Manual) Nucleated RBC % Seg Neutrophils # Seg Neutrophils # Man Lymphocytes # (Manual) D-Dimer ABG pH POC ABG pCO2 74.1 H POC ABG pO2 68.5 L ABG pO2 ABG HCO3 ABG O2 Saturation ABG Base Excess ABG Hemoglobin 10.7 L ABG Oxyhemoglobin 91.9 L ABG Sodium 132.2 L ABG Potassium 4.7 H ABG Chloride 88.0 L ABG Glucose 138 H Oxyhemoglobin Carboxyhemoglobin Sodium 134 L Potassium Chloride 87.4 L Carbon Dioxide 49 H* BUN Creatinine 0.2 L Glucose 132 H POC Glucose 176 H Hemoglobin A1c Lactic Acid Calcium 7.7 L Magnesium Ferritin Total Bilirubin AST ALT Alkaline Phosphatase Lactate Dehydrogenase Total Creatine Kinase C-Reactive Protein Total Protein Albumin Triglycerides Arterial Blood Glucose 138 H Arterial Blood Ionized Calcium 4.0 L Ur Specific [place] Urine WBC (Auto) Vancomycin Trough Coronavirus (PCR) 12/07/20 12/08/20 12/08/20 23:44 04:12 05:29 WBC RBC Hgb Hct MCHC RDW Plt Count Lymph % (Auto) [place] % (Auto) Lymph # (Auto) [place] # (Auto) Baso # (Auto) Seg Neutrophils % Seg Neuts % (Manual) Lymphocytes % (Manual) Nucleated RBC % Seg Neutrophils # Seg Neutrophils # Man Lymphocytes # (Manual) D-Dimer ABG pH POC ABG pCO2 POC ABG pO2 ABG pO2 69.7 L ABG HCO3 50.1 H ABG O2 Saturation ABG Base Excess 21.6 H ABG Hemoglobin 10.9 L ABG Oxyhemoglobin ABG Sodium ABG Potassium ABG Chloride ABG Glucose Oxyhemoglobin 93.2 L Carboxyhemoglobin Sodium Potassium Chloride Carbon Dioxide BUN Creatinine Glucose POC Glucose 143 H 143 H Hemoglobin A1c Lactic Acid Calcium Magnesium Ferritin Total Bilirubin AST ALT Alkaline Phosphatase Lactate Dehydrogenase Total Creatine Kinase C-Reactive Protein Total Protein Albumin Triglycerides Arterial Blood Glucose Arterial Blood Ionized Calcium Ur Specific [place] Urine WBC (Auto) Vancomycin Trough Coronavirus (PCR) 12/08/20 12/08/20 12/09/20 06:10 06:10 04:24 WBC 12.0 H RBC 3.18 L Hgb 9.5 L Hct 28.9 L MCHC RDW Plt Count Lymph % (Auto) [place] % (Auto) Lymph # (Auto) [place] # (Auto) Baso # (Auto) Seg Neutrophils % Seg Neuts % (Manual) 95.0 H Lymphocytes % (Manual) 3.0 L Nucleated RBC % Seg Neutrophils # Seg Neutrophils # Man 11.4 H Lymphocytes # (Manual) 0.4 L D-Dimer ABG pH POC ABG pCO2 76.2 H POC ABG pO2 52.8 L ABG pO2 ABG HCO3 ABG O2 Saturation ABG Base Excess ABG Hemoglobin 11.7 L ABG Oxyhemoglobin ABG Sodium 132.0 L ABG Potassium ABG Chloride 87.0 L ABG Glucose 118 H Oxyhemoglobin Carboxyhemoglobin Sodium 133 L Potassium Chloride 86.3 L Carbon Dioxide 53 H* BUN Creatinine 0.2 L Glucose 156 H POC Glucose Hemoglobin A1c Lactic Acid Calcium 7.6 L Magnesium Ferritin Total Bilirubin AST ALT Alkaline Phosphatase Lactate Dehydrogenase Total Creatine Kinase C-Reactive Protein Total Protein Albumin Triglycerides Arterial Blood Glucose 118 H Arterial Blood Ionized Calcium 4.2 L Ur Specific [place] Urine WBC (Auto) Vancomycin Trough Coronavirus (PCR) 12/09/20 12/09/20 12/09/20 05:44 06:40 06:40 WBC 13.5 H RBC 3.28 L Hgb 9.7 L Hct 29.9 L MCHC RDW Plt Count Lymph % (Auto) [place] % (Auto) Lymph # (Auto) [place] # (Auto) Baso # (Auto) Seg Neutrophils % Seg Neuts % (Manual) Lymphocytes % (Manual) Nucleated RBC % Seg Neutrophils # Seg Neutrophils # Man Lymphocytes # (Manual) D-Dimer ABG pH POC ABG pCO2 POC ABG pO2 ABG pO2 ABG HCO3 ABG O2 Saturation ABG Base Excess ABG Hemoglobin ABG Oxyhemoglobin ABG Sodium ABG Potassium ABG Chloride ABG Glucose Oxyhemoglobin Carboxyhemoglobin Sodium 135 L Potassium Chloride 89.5 L Carbon Dioxide 52 H* BUN Creatinine 0.3 L Glucose 114 H POC Glucose 117 H Hemoglobin A1c Lactic Acid Calcium 7.6 L Magnesium Ferritin Total Bilirubin AST ALT Alkaline Phosphatase Lactate Dehydrogenase Total Creatine Kinase C-Reactive Protein Total Protein Albumin Triglycerides Arterial Blood Glucose Arterial Blood Ionized Calcium Ur Specific [place] Urine WBC (Auto) Vancomycin Trough Coronavirus (PCR) 12/09/20 12/09/20 12/10/20 16:42 21:11 04:28 WBC RBC Hgb Hct MCHC RDW Plt Count Lymph % (Auto) [place] % (Auto) Lymph # (Auto) [place] # (Auto) Baso # (Auto) Seg Neutrophils % Seg Neuts % (Manual) Lymphocytes % (Manual) Nucleated RBC % Seg Neutrophils # Seg Neutrophils # Man Lymphocytes # (Manual) D-Dimer ABG pH POC ABG pCO2 72.5 H 69.4 H 76.9 H POC ABG pO2 50.4 L 80.6 L 60.2 L ABG pO2 ABG HCO3 ABG O2 Saturation ABG Base Excess ABG Hemoglobin 10.4 L 10.7 L 10 L ABG Oxyhemoglobin 84.3 L 89.7 L ABG Sodium 133.7 L 133.7 L 133.8 L ABG Potassium ABG Chloride 90.0 L 91.0 L 91.0 L ABG Glucose 116 H 96 H 57 L Oxyhemoglobin Carboxyhemoglobin 0.4 L Sodium Potassium Chloride Carbon Dioxide BUN Creatinine Glucose POC Glucose Hemoglobin A1c Lactic Acid Calcium Magnesium Ferritin Total Bilirubin AST ALT Alkaline Phosphatase Lactate Dehydrogenase Total Creatine Kinase C-Reactive Protein Total Protein Albumin Triglycerides Arterial Blood Glucose 116 H 96 H 57 L Arterial Blood Ionized Calcium 4.2 L 4.3 L 4.2 L Ur Specific [place] Urine WBC (Auto) Vancomycin Trough Coronavirus (PCR) 12/10/20 12/10/20 12/10/20 05:09 05:41 11:50 WBC RBC Hgb Hct MCHC RDW Plt Count Lymph % (Auto) [place] % (Auto) Lymph # (Auto) [place] # (Auto) Baso # (Auto) Seg Neutrophils % Seg Neuts % (Manual) Lymphocytes % (Manual) Nucleated RBC % Seg Neutrophils # Seg Neutrophils # Man Lymphocytes # (Manual) D-Dimer ABG pH POC ABG pCO2 POC ABG pO2 ABG pO2 ABG HCO3 ABG O2 Saturation ABG Base Excess ABG Hemoglobin ABG Oxyhemoglobin ABG Sodium ABG Potassium ABG Chloride ABG Glucose Oxyhemoglobin Carboxyhemoglobin Sodium Potassium Chloride Carbon Dioxide BUN Creatinine Glucose POC Glucose 41 L 138 H 106 H Hemoglobin A1c Lactic Acid Calcium Magnesium Ferritin Total Bilirubin AST ALT Alkaline Phosphatase Lactate Dehydrogenase Total Creatine Kinase C-Reactive Protein Total Protein Albumin Triglycerides Arterial Blood Glucose Arterial Blood Ionized Calcium Ur Specific [place] Urine WBC (Auto) Vancomycin Trough Coronavirus (PCR) 12/10/20 12/10/20 12/11/20 17:34 23:25 04:06 WBC RBC Hgb Hct MCHC RDW Plt Count Lymph % (Auto) [place] % (Auto) Lymph # (Auto) [place] # (Auto) Baso # (Auto) Seg Neutrophils % Seg Neuts % (Manual) Lymphocytes % (Manual) Nucleated RBC % Seg Neutrophils # Seg Neutrophils # Man Lymphocytes # (Manual) D-Dimer ABG pH POC ABG pCO2 71.0 H POC ABG pO2 56.8 L ABG pO2 ABG HCO3 ABG O2 Saturation ABG Base Excess ABG Hemoglobin 10.1 L ABG Oxyhemoglobin 88.5 L ABG Sodium 132.3 L ABG Potassium ABG Chloride 91.0 L ABG Glucose 168 H Oxyhemoglobin Carboxyhemoglobin Sodium Potassium Chloride Carbon Dioxide BUN Creatinine Glucose POC Glucose 121 H 167 H Hemoglobin A1c Lactic Acid Calcium Magnesium Ferritin Total Bilirubin AST ALT Alkaline Phosphatase Lactate Dehydrogenase Total Creatine Kinase C-Reactive Protein Total Protein Albumin Triglycerides Arterial Blood Glucose 168 H Arterial Blood Ionized Calcium 4.1 L Ur Specific [place] Urine WBC (Auto) Vancomycin Trough Coronavirus (PCR) 12/11/20 12/11/20 12/11/20 05:21 11:44 15:40 WBC RBC Hgb Hct MCHC RDW Plt Count Lymph % (Auto) [place] % (Auto) Lymph # (Auto) [place] # (Auto) Baso # (Auto) Seg Neutrophils % Seg Neuts % (Manual) Lymphocytes % (Manual) Nucleated RBC % Seg Neutrophils # Seg Neutrophils # Man Lymphocytes # (Manual) D-Dimer ABG pH 7.454 H POC ABG pCO2 58.6 H POC ABG pO2 50.7 L ABG pO2 ABG HCO3 ABG O2 Saturation ABG Base Excess ABG Hemoglobin 10.1 L ABG Oxyhemoglobin 86.2 L ABG Sodium 131.2 L ABG Potassium ABG Chloride 92.0 L ABG Glucose 197 H Oxyhemoglobin Carboxyhemoglobin Sodium Potassium Chloride Carbon Dioxide BUN Creatinine Glucose POC Glucose 149 H 202 H Hemoglobin A1c Lactic Acid Calcium Magnesium Ferritin Total Bilirubin AST ALT Alkaline Phosphatase Lactate Dehydrogenase Total Creatine Kinase C-Reactive Protein Total Protein Albumin Triglycerides Arterial Blood Glucose 197 H Arterial Blood Ionized Calcium 4.2 L Ur Specific [place] Urine WBC (Auto) Vancomycin Trough Coronavirus (PCR) 12/11/20 12/11/20 12/12/20 17:09 23:16 05:09 WBC RBC Hgb Hct MCHC RDW Plt Count Lymph % (Auto) [place] % (Auto) Lymph # (Auto) [place] # (Auto) Baso # (Auto) Seg Neutrophils % Seg Neuts % (Manual) Lymphocytes % (Manual) Nucleated RBC % Seg Neutrophils # Seg Neutrophils # Man Lymphocytes # (Manual) D-Dimer ABG pH POC ABG pCO2 63.1 H POC ABG pO2 62.6 L ABG pO2 ABG HCO3 ABG O2 Saturation ABG Base Excess ABG Hemoglobin 10.3 L ABG Oxyhemoglobin ABG Sodium 130.3 L ABG Potassium 4.6 H ABG Chloride 92.0 L ABG Glucose 215 H Oxyhemoglobin Carboxyhemoglobin Sodium Potassium Chloride Carbon Dioxide BUN Creatinine Glucose POC Glucose 181 H 192 H Hemoglobin A1c Lactic Acid Calcium Magnesium Ferritin Total Bilirubin AST ALT Alkaline Phosphatase Lactate Dehydrogenase Total Creatine Kinase C-Reactive Protein Total Protein Albumin Triglycerides Arterial Blood Glucose 215 H Arterial Blood Ionized Calcium 4.4 L Ur Specific [place] Urine WBC (Auto) Vancomycin Trough Coronavirus (PCR) 12/12/20 12/12/20 12/12/20 05:16 05:47 11:41 WBC RBC Hgb Hct MCHC RDW Plt Count Lymph % (Auto) [place] % (Auto) Lymph # (Auto) [place] # (Auto) Baso # (Auto) Seg Neutrophils % Seg Neuts % (Manual) Lymphocytes % (Manual) Nucleated RBC % Seg Neutrophils # Seg Neutrophils # Man Lymphocytes # (Manual) D-Dimer ABG pH POC ABG pCO2 POC ABG pO2 ABG pO2 ABG HCO3 ABG O2 Saturation ABG Base Excess ABG Hemoglobin ABG Oxyhemoglobin ABG Sodium ABG Potassium ABG Chloride ABG Glucose Oxyhemoglobin Carboxyhemoglobin Sodium Potassium Chloride Carbon Dioxide BUN Creatinine Glucose POC Glucose 208 H 218 H Hemoglobin A1c Lactic Acid Calcium Magnesium Ferritin Total Bilirubin AST ALT Alkaline Phosphatase Lactate Dehydrogenase Total Creatine Kinase C-Reactive Protein Total Protein Albumin Triglycerides 150 H Arterial Blood Glucose Arterial Blood Ionized Calcium Ur Specific [place] Urine WBC (Auto) Vancomycin Trough Coronavirus (PCR) 12/12/20 12/12/20 12/13/20 17:05 23:18 03:36 WBC RBC Hgb Hct MCHC RDW Plt Count Lymph % (Auto) [place] % (Auto) Lymph # (Auto) [place] # (Auto) Baso # (Auto) Seg Neutrophils % Seg Neuts % (Manual) Lymphocytes % (Manual) Nucleated RBC % Seg Neutrophils # Seg Neutrophils # Man Lymphocytes # (Manual) D-Dimer ABG pH POC ABG pCO2 61.5 H POC ABG pO2 77.6 L ABG pO2 ABG HCO3 ABG O2 Saturation ABG Base Excess ABG Hemoglobin 10.2 L ABG Oxyhemoglobin ABG Sodium 127.5 L ABG Potassium ABG Chloride 91.0 L ABG Glucose 232 H Oxyhemoglobin Carboxyhemoglobin Sodium Potassium Chloride Carbon Dioxide BUN Creatinine Glucose POC Glucose 187 H 176 H Hemoglobin A1c Lactic Acid Calcium Magnesium Ferritin Total Bilirubin AST ALT Alkaline Phosphatase Lactate Dehydrogenase Total Creatine Kinase C-Reactive Protein Total Protein Albumin Triglycerides Arterial Blood Glucose 232 H Arterial Blood Ionized Calcium 4.2 L Ur Specific [place] Urine WBC (Auto) Vancomycin Trough Coronavirus (PCR) 12/13/20 12/13/20 12/13/20 05:13 10:00 11:30 WBC RBC 3.50 L Hgb 10.5 L Hct 31.9 L MCHC RDW Plt Count Lymph % (Auto) [place] % (Auto) Lymph # (Auto) [place] # (Auto) Baso # (Auto) Seg Neutrophils % Seg Neuts % (Manual) 96.0 H Lymphocytes % (Manual) Nucleated RBC % Seg Neutrophils # Seg Neutrophils # Man 9.2 H Lymphocytes # (Manual) 0.0 L D-Dimer ABG pH POC ABG pCO2 POC ABG pO2 ABG pO2 ABG HCO3 ABG O2 Saturation ABG Base Excess ABG Hemoglobin ABG Oxyhemoglobin ABG Sodium ABG Potassium ABG Chloride ABG Glucose Oxyhemoglobin Carboxyhemoglobin Sodium Potassium Chloride Carbon Dioxide BUN Creatinine Glucose POC Glucose 204 H Hemoglobin A1c Lactic Acid Calcium Magnesium Ferritin Total Bilirubin AST ALT Alkaline Phosphatase Lactate Dehydrogenase Total Creatine Kinase C-Reactive Protein Total Protein Albumin Triglycerides Arterial Blood Glucose Arterial Blood Ionized Calcium Ur Specific [place] Urine WBC (Auto) Vancomycin Trough Coronavirus (PCR) Positive A 12/13/20 12/13/20 12/13/20 11:30 12:01 18:04 WBC RBC Hgb Hct MCHC RDW Plt Count Lymph % (Auto) [place] % (Auto) Lymph # (Auto) [place] # (Auto) Baso # (Auto) Seg Neutrophils % Seg Neuts % (Manual) Lymphocytes % (Manual) Nucleated RBC % Seg Neutrophils # Seg Neutrophils # Man Lymphocytes # (Manual) D-Dimer ABG pH POC ABG pCO2 POC ABG pO2 ABG pO2 ABG HCO3 ABG O2 Saturation ABG Base Excess ABG Hemoglobin ABG Oxyhemoglobin ABG Sodium ABG Potassium ABG Chloride ABG Glucose Oxyhemoglobin Carboxyhemoglobin Sodium 132 L Potassium Chloride 90.1 L Carbon Dioxide 41 H* D BUN Creatinine 0.2 L Glucose 249 H POC Glucose 224 H 172 H Hemoglobin A1c Lactic Acid Calcium 7.4 L Magnesium Ferritin Total Bilirubin AST ALT 61 H Alkaline Phosphatase Lactate Dehydrogenase Total Creatine Kinase C-Reactive Protein Total Protein 5.7 L Albumin 2.3 L Triglycerides Arterial Blood Glucose Arterial Blood Ionized Calcium Ur Specific [place] Urine WBC (Auto) Vancomycin Trough Coronavirus (PCR) 12/13/20 12/14/20 12/14/20 23:37 04:05 04:35 WBC RBC 3.37 L Hgb 10.1 L Hct 30.7 L MCHC RDW 15.4 H Plt Count Lymph % (Auto) [place] % (Auto) Lymph # (Auto) [place] # (Auto) Baso # (Auto) Seg Neutrophils % Seg Neuts % (Manual) 93.0 H Lymphocytes % (Manual) 3.0 L Nucleated RBC % Seg Neutrophils # Seg Neutrophils # Man 7.8 H Lymphocytes # (Manual) 0.3 L D-Dimer ABG pH POC ABG pCO2 72.2 H POC ABG pO2 61.5 L ABG pO2 ABG HCO3 ABG O2 Saturation ABG Base Excess ABG Hemoglobin ABG Oxyhemoglobin 89.9 L ABG Sodium 131.4 L ABG Potassium ABG Chloride 91.0 L ABG Glucose 205 H Oxyhemoglobin Carboxyhemoglobin Sodium Potassium Chloride Carbon Dioxide BUN Creatinine Glucose POC Glucose 200 H Hemoglobin A1c Lactic Acid Calcium Magnesium Ferritin Total Bilirubin AST ALT Alkaline Phosphatase Lactate Dehydrogenase Total Creatine Kinase C-Reactive Protein Total Protein Albumin Triglycerides Arterial Blood Glucose 205 H Arterial Blood Ionized Calcium 4.3 L Ur Specific [place] Urine WBC (Auto) Vancomycin Trough Coronavirus (PCR) 12/14/20 12/14/20 12/14/20 04:35 05:12 11:31 WBC RBC Hgb Hct MCHC RDW Plt Count Lymph % (Auto) [place] % (Auto) Lymph # (Auto) [place] # (Auto) Baso # (Auto) Seg Neutrophils % Seg Neuts % (Manual) Lymphocytes % (Manual) Nucleated RBC % Seg Neutrophils # Seg Neutrophils # Man Lymphocytes # (Manual) D-Dimer ABG pH POC ABG pCO2 POC ABG pO2 ABG pO2 ABG HCO3 ABG O2 Saturation ABG Base Excess ABG Hemoglobin ABG Oxyhemoglobin ABG Sodium ABG Potassium ABG Chloride ABG Glucose Oxyhemoglobin Carboxyhemoglobin Sodium 135 L Potassium Chloride 92.5 L Carbon Dioxide 38 H BUN Creatinine 0.2 L Glucose 184 H POC Glucose 176 H 212 H Hemoglobin A1c Lactic Acid Calcium 7.7 L Magnesium Ferritin Total Bilirubin AST ALT Alkaline Phosphatase Lactate Dehydrogenase Total Creatine Kinase C-Reactive Protein Total Protein Albumin Triglycerides Arterial Blood Glucose Arterial Blood Ionized Calcium Ur Specific [place] Urine WBC (Auto) Vancomycin Trough Coronavirus (PCR) 12/14/20 12/14/20 12/15/20 17:30 23:30 03:19 WBC RBC Hgb Hct MCHC RDW Plt Count Lymph % (Auto) [place] % (Auto) Lymph # (Auto) [place] # (Auto) Baso # (Auto) Seg Neutrophils % Seg Neuts % (Manual) Lymphocytes % (Manual) Nucleated RBC % Seg Neutrophils # Seg Neutrophils # Man Lymphocytes # (Manual) D-Dimer ABG pH POC ABG pCO2 62.0 H POC ABG pO2 66.0 L ABG pO2 ABG HCO3 ABG O2 Saturation ABG Base Excess ABG Hemoglobin 10.3 L ABG Oxyhemoglobin ABG Sodium 130.5 L ABG Potassium ABG Chloride 91.0 L ABG Glucose 166 H Oxyhemoglobin Carboxyhemoglobin Sodium Potassium Chloride Carbon Dioxide BUN Creatinine Glucose POC Glucose 222 H 176 H Hemoglobin A1c Lactic Acid Calcium Magnesium Ferritin Total Bilirubin AST ALT Alkaline Phosphatase Lactate Dehydrogenase Total Creatine Kinase C-Reactive Protein Total Protein Albumin Triglycerides Arterial Blood Glucose 166 H Arterial Blood Ionized Calcium 4.4 L Ur Specific [place] Urine WBC (Auto) Vancomycin Trough Coronavirus (PCR) 12/15/20 12/15/20 12/15/20 05:24 11:39 17:30 WBC RBC Hgb Hct MCHC RDW Plt Count Lymph % (Auto) [place] % (Auto) Lymph # (Auto) [place] # (Auto) Baso # (Auto) Seg Neutrophils % Seg Neuts % (Manual) Lymphocytes % (Manual) Nucleated RBC % Seg Neutrophils # Seg Neutrophils # Man Lymphocytes # (Manual) D-Dimer ABG pH POC ABG pCO2 POC ABG pO2 ABG pO2 ABG HCO3 ABG O2 Saturation ABG Base Excess ABG Hemoglobin ABG Oxyhemoglobin ABG Sodium ABG Potassium ABG Chloride ABG Glucose Oxyhemoglobin Carboxyhemoglobin Sodium Potassium Chloride Carbon Dioxide BUN Creatinine Glucose POC Glucose 160 H 140 H 246 H Hemoglobin A1c Lactic Acid Calcium Magnesium Ferritin Total Bilirubin AST ALT Alkaline Phosphatase Lactate Dehydrogenase Total Creatine Kinase C-Reactive Protein Total Protein Albumin Triglycerides Arterial Blood Glucose Arterial Blood Ionized Calcium Ur Specific [place] Urine WBC (Auto) Vancomycin Trough Coronavirus (PCR) 12/15/20 12/16/20 12/16/20 23:42 03:54 04:46 WBC RBC 3.48 L Hgb 10.6 L Hct 31.5 L MCHC RDW 15.8 H Plt Count Lymph % (Auto) [place] % (Auto) Lymph # (Auto) [place] # (Auto) Baso # (Auto) Seg Neutrophils % Seg Neuts % (Manual) Lymphocytes % (Manual) Nucleated RBC % Seg Neutrophils # Seg Neutrophils # Man Lymphocytes # (Manual) D-Dimer ABG pH POC ABG pCO2 63.6 H POC ABG pO2 55.0 L ABG pO2 ABG HCO3 ABG O2 Saturation ABG Base Excess ABG Hemoglobin 11.1 L ABG Oxyhemoglobin 87.3 L ABG Sodium 130.7 L ABG Potassium ABG Chloride 89.0 L ABG Glucose 211 H Oxyhemoglobin Carboxyhemoglobin Sodium Potassium Chloride Carbon Dioxide BUN Creatinine Glucose POC Glucose 139 H Hemoglobin A1c Lactic Acid Calcium Magnesium Ferritin Total Bilirubin AST ALT Alkaline Phosphatase Lactate Dehydrogenase Total Creatine Kinase C-Reactive Protein Total Protein Albumin Triglycerides Arterial Blood Glucose 211 H Arterial Blood Ionized Calcium 4.3 L Ur Specific [place] Urine WBC (Auto) Vancomycin Trough Coronavirus (PCR) 12/16/20 12/16/20 12/16/20 04:46 05:34 11:40 WBC RBC Hgb Hct MCHC RDW Plt Count Lymph % (Auto) [place] % (Auto) Lymph # (Auto) [place] # (Auto) Baso # (Auto) Seg Neutrophils % Seg Neuts % (Manual) Lymphocytes % (Manual) Nucleated RBC % Seg Neutrophils # Seg Neutrophils # Man Lymphocytes # (Manual) D-Dimer ABG pH POC ABG pCO2 POC ABG pO2 ABG pO2 ABG HCO3 ABG O2 Saturation ABG Base Excess ABG Hemoglobin ABG Oxyhemoglobin ABG Sodium ABG Potassium ABG Chloride ABG Glucose Oxyhemoglobin Carboxyhemoglobin Sodium 134 L Potassium Chloride 89.7 L Carbon Dioxide 38 H BUN Creatinine < 0.2 L Glucose 203 H POC Glucose 155 H 239 H Hemoglobin A1c Lactic Acid Calcium 7.5 L Magnesium Ferritin Total Bilirubin AST ALT Alkaline Phosphatase Lactate Dehydrogenase Total Creatine Kinase C-Reactive Protein Total Protein Albumin Triglycerides Arterial Blood Glucose Arterial Blood Ionized Calcium Ur Specific [place] Urine WBC (Auto) Vancomycin Trough Coronavirus (PCR) 12/16/20 12/16/20 12/17/20 17:42 23:45 03:59 WBC RBC Hgb Hct MCHC RDW Plt Count Lymph % (Auto) [place] % (Auto) Lymph # (Auto) [place] # (Auto) Baso # (Auto) Seg Neutrophils % Seg Neuts % (Manual) Lymphocytes % (Manual) Nucleated RBC % Seg Neutrophils # Seg Neutrophils # Man Lymphocytes # (Manual) D-Dimer ABG pH POC ABG pCO2 71.9 H POC ABG pO2 57.5 L ABG pO2 ABG HCO3 ABG O2 Saturation ABG Base Excess ABG Hemoglobin 10.8 L ABG Oxyhemoglobin 87.7 L ABG Sodium 131.5 L ABG Potassium ABG Chloride 90.0 L ABG Glucose 199 H Oxyhemoglobin Carboxyhemoglobin Sodium Potassium Chloride Carbon Dioxide BUN Creatinine Glucose POC Glucose 228 H 187 H Hemoglobin A1c Lactic Acid Calcium Magnesium Ferritin Total Bilirubin AST ALT Alkaline Phosphatase Lactate Dehydrogenase Total Creatine Kinase C-Reactive Protein Total Protein Albumin Triglycerides Arterial Blood Glucose 199 H Arterial Blood Ionized Calcium 4.4 L Ur Specific [place] Urine WBC (Auto) Vancomycin Trough Coronavirus (PCR) 12/17/20 12/17/20 12/17/20 05:35 11:55 12:40 WBC RBC Hgb Hct MCHC RDW Plt Count Lymph % (Auto) [place] % (Auto) Lymph # (Auto) [place] # (Auto) Baso # (Auto) Seg Neutrophils % Seg Neuts % (Manual) Lymphocytes % (Manual) Nucleated RBC % Seg Neutrophils # Seg Neutrophils # Man Lymphocytes # (Manual) D-Dimer ABG pH POC ABG pCO2 POC ABG pO2 ABG pO2 ABG HCO3 ABG O2 Saturation ABG Base Excess ABG Hemoglobin ABG Oxyhemoglobin ABG Sodium ABG Potassium ABG Chloride ABG Glucose Oxyhemoglobin Carboxyhemoglobin Sodium Potassium Chloride 95.2 L Carbon Dioxide 41 H* BUN Creatinine 0.2 L Glucose 138 H POC Glucose 159 H 181 H Hemoglobin A1c Lactic Acid Calcium 7.3 L Magnesium Ferritin Total Bilirubin AST ALT Alkaline Phosphatase Lactate Dehydrogenase Total Creatine Kinase C-Reactive Protein Total Protein Albumin Triglycerides Arterial Blood Glucose Arterial Blood Ionized Calcium Ur Specific [place] Urine WBC (Auto) Vancomycin Trough Coronavirus (PCR) 12/17/20 12/17/20 12/17/20 17:25 17:25 17:51 WBC RBC Hgb Hct MCHC RDW Plt Count Lymph % (Auto) [place] % (Auto) Lymph # (Auto) [place] # (Auto) Baso # (Auto) Seg Neutrophils % Seg Neuts % (Manual) Lymphocytes % (Manual) Nucleated RBC % Seg Neutrophils # Seg Neutrophils # Man Lymphocytes # (Manual) D-Dimer ABG pH POC ABG pCO2 POC ABG pO2 ABG pO2 ABG HCO3 ABG O2 Saturation ABG Base Excess ABG Hemoglobin ABG Oxyhemoglobin ABG Sodium ABG Potassium ABG Chloride ABG Glucose Oxyhemoglobin Carboxyhemoglobin Sodium 134 L Potassium Chloride 89.6 L Carbon Dioxide 44 H* BUN Creatinine 0.2 L Glucose 280 H POC Glucose 260 H Hemoglobin A1c Lactic Acid Calcium 8.0 L Magnesium 1.60 L Ferritin Total Bilirubin AST ALT Alkaline Phosphatase Lactate Dehydrogenase Total Creatine Kinase 47 L C-Reactive Protein Total Protein 6.2 L Albumin 2.1 L Triglycerides Arterial Blood Glucose Arterial Blood Ionized Calcium Ur Specific [place] Urine WBC (Auto) Vancomycin Trough Coronavirus (PCR) 12/18/20 12/18/20 12/18/20 00:12 03:56 04:32 WBC RBC 2.88 L Hgb 8.6 L Hct 26.0 L MCHC RDW 15.6 H Plt Count Lymph % (Auto) [place] % (Auto) Lymph # (Auto) [place] # (Auto) Baso # (Auto) Seg Neutrophils % Seg Neuts % (Manual) Lymphocytes % (Manual) Nucleated RBC % Seg Neutrophils # Seg Neutrophils # Man Lymphocytes # (Manual) D-Dimer ABG pH POC ABG pCO2 78.0 H POC ABG pO2 52.3 L ABG pO2 ABG HCO3 ABG O2 Saturation ABG Base Excess ABG Hemoglobin 11.7 L ABG Oxyhemoglobin 84.9 L ABG Sodium 131.6 L ABG Potassium ABG Chloride 89.0 L ABG Glucose 191 H Oxyhemoglobin Carboxyhemoglobin Sodium Potassium Chloride Carbon Dioxide BUN Creatinine Glucose POC Glucose 197 H Hemoglobin A1c Lactic Acid Calcium Magnesium Ferritin Total Bilirubin AST ALT Alkaline Phosphatase Lactate Dehydrogenase Total Creatine Kinase C-Reactive Protein Total Protein Albumin Triglycerides Arterial Blood Glucose 191 H Arterial Blood Ionized Calcium 4.4 L Ur Specific [place] Urine WBC (Auto) Vancomycin Trough Coronavirus (PCR) 12/18/20 12/18/20 12/18/20 04:32 05:19 08:27 WBC RBC Hgb Hct MCHC RDW Plt Count Lymph % (Auto) [place] % (Auto) Lymph # (Auto) [place] # (Auto) Baso # (Auto) Seg Neutrophils % Seg Neuts % (Manual) Lymphocytes % (Manual) Nucleated RBC % Seg Neutrophils # Seg Neutrophils # Man Lymphocytes # (Manual) D-Dimer ABG pH POC ABG pCO2 POC ABG pO2 ABG pO2 ABG HCO3 ABG O2 Saturation ABG Base Excess ABG Hemoglobin ABG Oxyhemoglobin ABG Sodium ABG Potassium ABG Chloride ABG Glucose Oxyhemoglobin Carboxyhemoglobin Sodium 134 L 131 L Potassium Chloride 89.5 L 89.0 L Carbon Dioxide 43 H* 41 H* BUN Creatinine < 0.2 L < 0.2 L Glucose 182 H 176 H POC Glucose 165 H Hemoglobin A1c Lactic Acid Calcium 8.1 L 7.5 L Magnesium Ferritin Total Bilirubin AST ALT Alkaline Phosphatase Lactate Dehydrogenase Total Creatine Kinase C-Reactive Protein Total Protein Albumin Triglycerides Arterial Blood Glucose Arterial Blood Ionized Calcium Ur Specific [place] Urine WBC (Auto) Vancomycin Trough Coronavirus (PCR) 12/18/20 12/18/20 12/18/20 11:37 17:26 23:19 WBC RBC Hgb Hct MCHC RDW Plt Count Lymph % (Auto) [place] % (Auto) Lymph # (Auto) [place] # (Auto) Baso # (Auto) Seg Neutrophils % Seg Neuts % (Manual) Lymphocytes % (Manual) Nucleated RBC % Seg Neutrophils # Seg Neutrophils # Man Lymphocytes # (Manual) D-Dimer ABG pH POC ABG pCO2 POC ABG pO2 ABG pO2 ABG HCO3 ABG O2 Saturation ABG Base Excess ABG Hemoglobin ABG Oxyhemoglobin ABG Sodium ABG Potassium ABG Chloride ABG Glucose Oxyhemoglobin Carboxyhemoglobin Sodium Potassium Chloride Carbon Dioxide BUN Creatinine Glucose POC Glucose 174 H 243 H 212 H Hemoglobin A1c Lactic Acid Calcium Magnesium Ferritin Total Bilirubin AST ALT Alkaline Phosphatase Lactate Dehydrogenase Total Creatine Kinase C-Reactive Protein Total Protein Albumin Triglycerides Arterial Blood Glucose Arterial Blood Ionized Calcium Ur Specific [place] Urine WBC (Auto) Vancomycin Trough Coronavirus (PCR) 12/19/20 12/19/20 12/19/20 03:41 05:26 11:56 WBC RBC Hgb Hct MCHC RDW Plt Count Lymph % (Auto) [place] % (Auto) Lymph # (Auto) [place] # (Auto) Baso # (Auto) Seg Neutrophils % Seg Neuts % (Manual) Lymphocytes % (Manual) Nucleated RBC % Seg Neutrophils # Seg Neutrophils # Man Lymphocytes # (Manual) D-Dimer ABG pH POC ABG pCO2 75.4 H POC ABG pO2 50.7 L ABG pO2 ABG HCO3 ABG O2 Saturation ABG Base Excess ABG Hemoglobin 10.4 L ABG Oxyhemoglobin 84.2 L ABG Sodium 131.1 L ABG Potassium ABG Chloride 89.0 L ABG Glucose 194 H Oxyhemoglobin Carboxyhemoglobin 1.6 H Sodium Potassium Chloride Carbon Dioxide BUN Creatinine Glucose POC Glucose 166 H 173 H Hemoglobin A1c Lactic Acid Calcium Magnesium Ferritin Total Bilirubin AST ALT Alkaline Phosphatase Lactate Dehydrogenase Total Creatine Kinase C-Reactive Protein Total Protein Albumin Triglycerides Arterial Blood Glucose 194 H Arterial Blood Ionized Calcium 4.3 L Ur Specific [place] Urine WBC (Auto) Vancomycin Trough Coronavirus (PCR) 12/19/20 12/19/20 12/19/20 18:17 23:39 Unknown WBC RBC Hgb Hct MCHC RDW Plt Count Lymph % (Auto) [place] % (Auto) Lymph # (Auto) [place] # (Auto) Baso # (Auto) Seg Neutrophils % Seg Neuts % (Manual) Lymphocytes % (Manual) Nucleated RBC % Seg Neutrophils # Seg Neutrophils # Man Lymphocytes # (Manual) D-Dimer ABG pH POC ABG pCO2 POC ABG pO2 ABG pO2 ABG HCO3 ABG O2 Saturation ABG Base Excess ABG Hemoglobin ABG Oxyhemoglobin ABG Sodium ABG Potassium ABG Chloride ABG Glucose Oxyhemoglobin Carboxyhemoglobin Sodium 133 L Potassium Chloride 89.9 L Carbon Dioxide 39 H BUN Creatinine 0.2 L Glucose 197 H POC Glucose 212 H 133 H Hemoglobin A1c Lactic Acid Calcium 7.6 L Magnesium Ferritin Total Bilirubin AST ALT Alkaline Phosphatase Lactate Dehydrogenase Total Creatine Kinase C-Reactive Protein Total Protein Albumin Triglycerides Arterial Blood Glucose Arterial Blood Ionized Calcium Ur Specific [place] Urine WBC (Auto) Vancomycin Trough Coronavirus (PCR) 12/20/20 12/20/20 12/20/20 03:26 04:00 04:00 WBC RBC 3.21 L Hgb 9.6 L Hct 29.2 L MCHC RDW 15.8 H Plt Count Lymph % (Auto) [place] % (Auto) Lymph # (Auto) [place] # (Auto) Baso # (Auto) Seg Neutrophils % Seg Neuts % (Manual) Lymphocytes % (Manual) Nucleated RBC % Seg Neutrophils # Seg Neutrophils # Man Lymphocytes # (Manual) D-Dimer ABG pH POC ABG pCO2 74.2 H POC ABG pO2 51.3 L ABG pO2 ABG HCO3 ABG O2 Saturation ABG Base Excess ABG Hemoglobin 10.0 L ABG Oxyhemoglobin ABG Sodium 128.9 L ABG Potassium ABG Chloride 87.0 L ABG Glucose 173 H Oxyhemoglobin Carboxyhemoglobin Sodium 132 L Potassium Chloride 86.0 L Carbon Dioxide 43 H* BUN Creatinine 0.2 L Glucose 193 H POC Glucose Hemoglobin A1c Lactic Acid Calcium 7.6 L Magnesium Ferritin Total Bilirubin AST ALT Alkaline Phosphatase Lactate Dehydrogenase Total Creatine Kinase C-Reactive Protein Total Protein Albumin Triglycerides Arterial Blood Glucose 173 H Arterial Blood Ionized Calcium 4.1 L Ur Specific [place] Urine WBC (Auto) Vancomycin Trough Coronavirus (PCR) 12/20/20 12/20/20 12/20/20 05:05 11:47 18:18 WBC RBC Hgb Hct MCHC RDW Plt Count Lymph % (Auto) [place] % (Auto) Lymph # (Auto) [place] # (Auto) Baso # (Auto) Seg Neutrophils % Seg Neuts % (Manual) Lymphocytes % (Manual) Nucleated RBC % Seg Neutrophils # Seg Neutrophils # Man Lymphocytes # (Manual) D-Dimer ABG pH POC ABG pCO2 POC ABG pO2 ABG pO2 ABG HCO3 ABG O2 Saturation ABG Base Excess ABG Hemoglobin ABG Oxyhemoglobin ABG Sodium ABG Potassium ABG Chloride ABG Glucose Oxyhemoglobin Carboxyhemoglobin Sodium Potassium Chloride Carbon Dioxide BUN Creatinine Glucose POC Glucose 171 H 238 H 205 H Hemoglobin A1c Lactic Acid Calcium Magnesium Ferritin Total Bilirubin AST ALT Alkaline Phosphatase Lactate Dehydrogenase Total Creatine Kinase C-Reactive Protein Total Protein Albumin Triglycerides Arterial Blood Glucose Arterial Blood Ionized Calcium Ur Specific [place] Urine WBC (Auto) Vancomycin Trough Coronavirus (PCR) 12/20/20 12/21/20 12/21/20 23:41 03:30 05:37 WBC RBC Hgb Hct MCHC RDW Plt Count Lymph % (Auto) [place] % (Auto) Lymph # (Auto) [place] # (Auto) Baso # (Auto) Seg Neutrophils % Seg Neuts % (Manual) Lymphocytes % (Manual) Nucleated RBC % Seg Neutrophils # Seg Neutrophils # Man Lymphocytes # (Manual) D-Dimer ABG pH POC ABG pCO2 73.4 H POC ABG pO2 63.0 L ABG pO2 ABG HCO3 ABG O2 Saturation ABG Base Excess ABG Hemoglobin 10.1 L ABG Oxyhemoglobin ABG Sodium 130.5 L ABG Potassium ABG Chloride 89.0 L ABG Glucose 171 H Oxyhemoglobin Carboxyhemoglobin Sodium Potassium Chloride Carbon Dioxide BUN Creatinine Glucose POC Glucose 167 H 152 H Hemoglobin A1c Lactic Acid Calcium Magnesium Ferritin Total Bilirubin AST ALT Alkaline Phosphatase Lactate Dehydrogenase Total Creatine Kinase C-Reactive Protein Total Protein Albumin Triglycerides Arterial Blood Glucose 171 H Arterial Blood Ionized Calcium 4.2 L Ur Specific [place] Urine WBC (Auto) Vancomycin Trough Coronavirus (PCR) 12/21/20 12/21/20 12/21/20 09:57 12:54 18:00 WBC RBC Hgb Hct MCHC RDW Plt Count Lymph % (Auto) [place] % (Auto) Lymph # (Auto) [place] # (Auto) Baso # (Auto) Seg Neutrophils % Seg Neuts % (Manual) Lymphocytes % (Manual) Nucleated RBC % Seg Neutrophils # Seg Neutrophils # Man Lymphocytes # (Manual) D-Dimer ABG pH POC ABG pCO2 POC ABG pO2 ABG pO2 ABG HCO3 ABG O2 Saturation ABG Base Excess ABG Hemoglobin ABG Oxyhemoglobin ABG Sodium ABG Potassium ABG Chloride ABG Glucose Oxyhemoglobin Carboxyhemoglobin Sodium 132 L Potassium Chloride 87.7 L Carbon Dioxide 42 H* BUN Creatinine 0.2 L Glucose 207 H POC Glucose 199 H 217 H Hemoglobin A1c Lactic Acid Calcium 7.7 L Magnesium Ferritin Total Bilirubin AST ALT Alkaline Phosphatase Lactate Dehydrogenase Total Creatine Kinase C-Reactive Protein Total Protein Albumin Triglycerides Arterial Blood Glucose Arterial Blood Ionized Calcium Ur Specific [place] Urine WBC (Auto) Vancomycin Trough Coronavirus (PCR) 12/21/20 12/22/20 12/22/20 Unknown 00:02 04:08 WBC RBC Hgb Hct MCHC RDW Plt Count Lymph % (Auto) [place] % (Auto) Lymph # (Auto) [place] # (Auto) Baso # (Auto) Seg Neutrophils % Seg Neuts % (Manual) Lymphocytes % (Manual) Nucleated RBC % Seg Neutrophils # Seg Neutrophils # Man Lymphocytes # (Manual) D-Dimer ABG pH POC ABG pCO2 67.6 H POC ABG pO2 57.3 L ABG pO2 ABG HCO3 ABG O2 Saturation ABG Base Excess ABG Hemoglobin ABG Oxyhemoglobin ABG Sodium 130.9 L ABG Potassium ABG Chloride 92.0 L ABG Glucose 163 H Oxyhemoglobin Carboxyhemoglobin Sodium Potassium Chloride Carbon Dioxide BUN Creatinine Glucose POC Glucose 172 H Hemoglobin A1c Lactic Acid Calcium Magnesium Ferritin Total Bilirubin AST ALT Alkaline Phosphatase Lactate Dehydrogenase Total Creatine Kinase C-Reactive Protein Total Protein Albumin Triglycerides Arterial Blood Glucose 163 H Arterial Blood Ionized Calcium 4.2 L Ur Specific [place] Urine WBC (Auto) 172.0 H Vancomycin Trough Coronavirus (PCR) 12/22/20 12/22/20 12/22/20 05:19 11:33 17:20 WBC RBC Hgb Hct MCHC RDW Plt Count Lymph % (Auto) [place] % (Auto) Lymph # (Auto) [place] # (Auto) Baso # (Auto) Seg Neutrophils % Seg Neuts % (Manual) Lymphocytes % (Manual) Nucleated RBC % Seg Neutrophils # Seg Neutrophils # Man Lymphocytes # (Manual) D-Dimer ABG pH POC ABG pCO2 POC ABG pO2 ABG pO2 ABG HCO3 ABG O2 Saturation ABG Base Excess ABG Hemoglobin ABG Oxyhemoglobin ABG Sodium ABG Potassium ABG Chloride ABG Glucose Oxyhemoglobin Carboxyhemoglobin Sodium Potassium Chloride Carbon Dioxide BUN Creatinine Glucose POC Glucose 151 H 181 H 166 H Hemoglobin A1c Lactic Acid Calcium Magnesium Ferritin Total Bilirubin AST ALT Alkaline Phosphatase Lactate Dehydrogenase Total Creatine Kinase C-Reactive Protein Total Protein Albumin Triglycerides Arterial Blood Glucose Arterial Blood Ionized Calcium Ur Specific [place] Urine WBC (Auto) Vancomycin Trough Coronavirus (PCR) 12/22/20 12/23/20 12/23/20 23:25 05:19 05:32 WBC RBC Hgb Hct MCHC RDW Plt Count Lymph % (Auto) [place] % (Auto) Lymph # (Auto) [place] # (Auto) Baso # (Auto) Seg Neutrophils % Seg Neuts % (Manual) Lymphocytes % (Manual) Nucleated RBC % Seg Neutrophils # Seg Neutrophils # Man Lymphocytes # (Manual) D-Dimer ABG pH POC ABG pCO2 67.7 H POC ABG pO2 53.7 L ABG pO2 ABG HCO3 ABG O2 Saturation ABG Base Excess ABG Hemoglobin 9.6 L ABG Oxyhemoglobin ABG Sodium 130.2 L ABG Potassium ABG Chloride 88.0 L ABG Glucose 195 H Oxyhemoglobin Carboxyhemoglobin Sodium Potassium Chloride Carbon Dioxide BUN Creatinine Glucose POC Glucose 121 H 167 H Hemoglobin A1c Lactic Acid Calcium Magnesium Ferritin Total Bilirubin AST ALT Alkaline Phosphatase Lactate Dehydrogenase Total Creatine Kinase C-Reactive Protein Total Protein Albumin Triglycerides Arterial Blood Glucose 195 H Arterial Blood Ionized Calcium 4.1 L Ur Specific [place] Urine WBC (Auto) Vancomycin Trough Coronavirus (PCR) 12/23/20 12/23/20 12/23/20 06:07 11:21 18:10 WBC RBC Hgb Hct MCHC RDW Plt Count Lymph % (Auto) [place] % (Auto) Lymph # (Auto) [place] # (Auto) Baso # (Auto) Seg Neutrophils % Seg Neuts % (Manual) Lymphocytes % (Manual) Nucleated RBC % Seg Neutrophils # Seg Neutrophils # Man Lymphocytes # (Manual) D-Dimer ABG pH POC ABG pCO2 POC ABG pO2 ABG pO2 ABG HCO3 ABG O2 Saturation ABG Base Excess ABG Hemoglobin ABG Oxyhemoglobin ABG Sodium ABG Potassium ABG Chloride ABG Glucose Oxyhemoglobin Carboxyhemoglobin Sodium 135 L Potassium Chloride 89.3 L Carbon Dioxide 43 H* BUN Creatinine 0.2 L Glucose 193 H POC Glucose 155 H 178 H Hemoglobin A1c Lactic Acid Calcium 7.4 L Magnesium Ferritin Total Bilirubin AST ALT Alkaline Phosphatase Lactate Dehydrogenase Total Creatine Kinase C-Reactive Protein Total Protein Albumin Triglycerides Arterial Blood Glucose Arterial Blood Ionized Calcium Ur Specific [place] Urine WBC (Auto) Vancomycin Trough Coronavirus (PCR) 12/23/20 12/24/20 12/24/20 23:21 04:49 05:00 WBC RBC Hgb Hct MCHC RDW Plt Count Lymph % (Auto) [place] % (Auto) Lymph # (Auto) [place] # (Auto) Baso # (Auto) Seg Neutrophils % Seg Neuts % (Manual) Lymphocytes % (Manual) Nucleated RBC % Seg Neutrophils # Seg Neutrophils # Man Lymphocytes # (Manual) D-Dimer ABG pH POC ABG pCO2 75.5 H POC ABG pO2 50.5 L ABG pO2 ABG HCO3 ABG O2 Saturation ABG Base Excess ABG Hemoglobin 8.8 L ABG Oxyhemoglobin 86.3 L ABG Sodium 131.6 L ABG Potassium ABG Chloride 88.0 L ABG Glucose 186 H Oxyhemoglobin Carboxyhemoglobin 2.1 H Sodium Potassium Chloride Carbon Dioxide BUN Creatinine Glucose POC Glucose 126 H Hemoglobin A1c Lactic Acid Calcium Magnesium Ferritin Total Bilirubin AST ALT Alkaline Phosphatase Lactate Dehydrogenase Total Creatine Kinase C-Reactive Protein Total Protein Albumin Triglycerides 486 H Arterial Blood Glucose 186 H Arterial Blood Ionized Calcium 4.0 L Ur Specific [place] Urine WBC (Auto) Vancomycin Trough Coronavirus (PCR) 12/24/20 12/24/20 12/24/20 05:19 11:57 16:44 WBC RBC Hgb Hct MCHC RDW Plt Count Lymph % (Auto) [place] % (Auto) Lymph # (Auto) [place] # (Auto) Baso # (Auto) Seg Neutrophils % Seg Neuts % (Manual) Lymphocytes % (Manual) Nucleated RBC % Seg Neutrophils # Seg Neutrophils # Man Lymphocytes # (Manual) D-Dimer ABG pH POC ABG pCO2 POC ABG pO2 ABG pO2 ABG HCO3 ABG O2 Saturation ABG Base Excess ABG Hemoglobin ABG Oxyhemoglobin ABG Sodium ABG Potassium ABG Chloride ABG Glucose Oxyhemoglobin Carboxyhemoglobin Sodium Potassium Chloride Carbon Dioxide BUN Creatinine Glucose POC Glucose 162 H 163 H 191 H Hemoglobin A1c Lactic Acid Calcium Magnesium Ferritin Total Bilirubin AST ALT Alkaline Phosphatase Lactate Dehydrogenase Total Creatine Kinase C-Reactive Protein Total Protein Albumin Triglycerides Arterial Blood Glucose Arterial Blood Ionized Calcium Ur Specific [place] Urine WBC (Auto) Vancomycin Trough Coronavirus (PCR) 12/24/20 12/24/20 12/24/20 17:28 18:57 20:48 WBC 19.1 H RBC 2.91 L Hgb 8.3 L Hct 26.0 L MCHC RDW 16.0 H Plt Count Lymph % (Auto) [place] % (Auto) Lymph # (Auto) [place] # (Auto) Baso # (Auto) Seg Neutrophils % Seg Neuts % (Manual) 92.0 H Lymphocytes % (Manual) 5.0 L Nucleated RBC % Seg Neutrophils # Seg Neutrophils # Man 17.6 H Lymphocytes # (Manual) 1.0 L D-Dimer ABG pH 7.250 L POC ABG pCO2 102.6 H 82.1 H POC ABG pO2 42.4 L 38.6 L ABG pO2 ABG HCO3 ABG O2 Saturation ABG Base Excess ABG Hemoglobin 9.0 L 9.3 L ABG Oxyhemoglobin 69.9 L 70.8 L ABG Sodium 131.1 L 130.7 L ABG Potassium ABG Chloride 89.0 L 89.0 L ABG Glucose 211 H 226 H Oxyhemoglobin Carboxyhemoglobin 1.7 H 1.8 H Sodium Potassium Chloride Carbon Dioxide BUN Creatinine Glucose POC Glucose Hemoglobin A1c Lactic Acid Calcium Magnesium Ferritin Total Bilirubin AST ALT Alkaline Phosphatase Lactate Dehydrogenase Total Creatine Kinase C-Reactive Protein Total Protein Albumin Triglycerides Arterial Blood Glucose 211 H 226 H Arterial Blood Ionized Calcium 4.0 L 4.1 L Ur Specific [place] Urine WBC (Auto) Vancomycin Trough Coronavirus (PCR) 12/24/20 12/25/20 12/25/20 23:31 04:04 06:31 WBC RBC Hgb Hct MCHC RDW Plt Count Lymph % (Auto) [place] % (Auto) Lymph # (Auto) [place] # (Auto) Baso # (Auto) Seg Neutrophils % Seg Neuts % (Manual) Lymphocytes % (Manual) Nucleated RBC % Seg Neutrophils # Seg Neutrophils # Man Lymphocytes # (Manual) D-Dimer ABG pH POC ABG pCO2 75.6 H POC ABG pO2 43.3 L ABG pO2 ABG HCO3 ABG O2 Saturation ABG Base Excess ABG Hemoglobin 10.6 L ABG Oxyhemoglobin 77.6 L ABG Sodium 131.4 L ABG Potassium ABG Chloride 90.0 L ABG Glucose 185 H Oxyhemoglobin Carboxyhemoglobin 2.4 H Sodium Potassium Chloride Carbon Dioxide BUN Creatinine Glucose POC Glucose 181 H 153 H Hemoglobin A1c Lactic Acid Calcium Magnesium Ferritin Total Bilirubin AST ALT Alkaline Phosphatase Lactate Dehydrogenase Total Creatine Kinase C-Reactive Protein Total Protein Albumin Triglycerides Arterial Blood Glucose 185 H Arterial Blood Ionized Calcium 4.1 L Ur Specific [place] Urine WBC (Auto) Vancomycin Trough Coronavirus (PCR) 12/25/20 12/25/20 12/25/20 11:17 11:17 11:17 WBC 19.6 H RBC 2.82 L Hgb 8.1 L Hct 25.2 L MCHC RDW 16.2 H Plt Count Lymph % (Auto) [place] % (Auto) Lymph # (Auto) [place] # (Auto) Baso # (Auto) Seg Neutrophils % Seg Neuts % (Manual) Lymphocytes % (Manual) Nucleated RBC % Seg Neutrophils # Seg Neutrophils # Man Lymphocytes # (Manual) D-Dimer ABG pH POC ABG pCO2 POC ABG pO2 ABG pO2 ABG HCO3 ABG O2 Saturation ABG Base Excess ABG Hemoglobin ABG Oxyhemoglobin ABG Sodium ABG Potassium ABG Chloride ABG Glucose Oxyhemoglobin Carboxyhemoglobin Sodium 136 L Potassium Chloride 92.3 L Carbon Dioxide 44 H* BUN Creatinine 0.3 L Glucose 240 H POC Glucose Hemoglobin A1c Lactic Acid Calcium 7.3 L Magnesium Ferritin Total Bilirubin AST ALT Alkaline Phosphatase Lactate Dehydrogenase Total Creatine Kinase C-Reactive Protein Total Protein Albumin Triglycerides 328 H Arterial Blood Glucose Arterial Blood Ionized Calcium Ur Specific [place] Urine WBC (Auto) Vancomycin Trough Coronavirus (PCR) 12/25/20 12/25/20 12/25/20 12:07 17:52 21:49 WBC RBC Hgb Hct MCHC RDW Plt Count Lymph % (Auto) [place] % (Auto) Lymph # (Auto) [place] # (Auto) Baso # (Auto) Seg Neutrophils % Seg Neuts % (Manual) Lymphocytes % (Manual) Nucleated RBC % Seg Neutrophils # Seg Neutrophils # Man Lymphocytes # (Manual) D-Dimer ABG pH POC ABG pCO2 POC ABG pO2 ABG pO2 ABG HCO3 ABG O2 Saturation ABG Base Excess ABG Hemoglobin ABG Oxyhemoglobin ABG Sodium ABG Potassium ABG Chloride ABG Glucose Oxyhemoglobin Carboxyhemoglobin Sodium Potassium Chloride Carbon Dioxide BUN Creatinine Glucose POC Glucose 210 H 188 H 152 H Hemoglobin A1c Lactic Acid Calcium Magnesium Ferritin Total Bilirubin AST ALT Alkaline Phosphatase Lactate Dehydrogenase Total Creatine Kinase C-Reactive Protein Total Protein Albumin Triglycerides Arterial Blood Glucose Arterial Blood Ionized Calcium Ur Specific [place] Urine WBC (Auto) Vancomycin Trough Coronavirus (PCR) 12/25/20 12/26/20 12/26/20 23:47 04:00 05:20 WBC RBC Hgb Hct MCHC RDW Plt Count Lymph % (Auto) [place] % (Auto) Lymph # (Auto) [place] # (Auto) Baso # (Auto) Seg Neutrophils % Seg Neuts % (Manual) Lymphocytes % (Manual) Nucleated RBC % Seg Neutrophils # Seg Neutrophils # Man Lymphocytes # (Manual) D-Dimer ABG pH POC ABG pCO2 73.4 H POC ABG pO2 58.8 L ABG pO2 ABG HCO3 ABG O2 Saturation ABG Base Excess ABG Hemoglobin 7.4 L ABG Oxyhemoglobin ABG Sodium 135.2 L ABG Potassium ABG Chloride 96.0 L ABG Glucose 164 H Oxyhemoglobin Carboxyhemoglobin Sodium Potassium Chloride Carbon Dioxide BUN Creatinine Glucose POC Glucose 138 H 147 H Hemoglobin A1c Lactic Acid Calcium Magnesium Ferritin Total Bilirubin AST ALT Alkaline Phosphatase Lactate Dehydrogenase Total Creatine Kinase C-Reactive Protein Total Protein Albumin Triglycerides Arterial Blood Glucose 164 H Arterial Blood Ionized Calcium 4.1 L Ur Specific [place] Urine WBC (Auto) Vancomycin Trough Coronavirus (PCR) 12/26/20 12/26/20 12/26/20 05:26 05:26 05:26 WBC 16.2 H RBC 2.75 L Hgb 7.8 L Hct 24.1 L MCHC RDW 16.3 H Plt Count 451 H Lymph % (Auto) [place] % (Auto) Lymph # (Auto) [place] # (Auto) Baso # (Auto) Seg Neutrophils % Seg Neuts % (Manual) 87.0 H Lymphocytes % (Manual) Nucleated RBC % 5.0 H Seg Neutrophils # Seg Neutrophils # Man 14.1 H Lymphocytes # (Manual) 0.0 L D-Dimer ABG pH POC ABG pCO2 POC ABG pO2 ABG pO2 ABG HCO3 ABG O2 Saturation ABG Base Excess ABG Hemoglobin ABG Oxyhemoglobin ABG Sodium ABG Potassium ABG Chloride ABG Glucose Oxyhemoglobin Carboxyhemoglobin Sodium Potassium Chloride 95.2 L Carbon Dioxide 44 H* BUN Creatinine 0.2 L Glucose 155 H POC Glucose Hemoglobin A1c Lactic Acid Calcium 7.4 L Magnesium Ferritin Total Bilirubin AST ALT Alkaline Phosphatase Lactate Dehydrogenase Total Creatine Kinase C-Reactive Protein Total Protein 6.0 L Albumin 1.6 L Triglycerides 307 H Arterial Blood Glucose Arterial Blood Ionized Calcium Ur Specific [place] Urine WBC (Auto) Vancomycin Trough Coronavirus (PCR) 12/26/20 12/26/20 12/26/20 11:21 17:26 23:22 WBC RBC Hgb Hct MCHC RDW Plt Count Lymph % (Auto) [place] % (Auto) Lymph # (Auto) [place] # (Auto) Baso # (Auto) Seg Neutrophils % Seg Neuts % (Manual) Lymphocytes % (Manual) Nucleated RBC % Seg Neutrophils # Seg Neutrophils # Man Lymphocytes # (Manual) D-Dimer ABG pH POC ABG pCO2 POC ABG pO2 ABG pO2 ABG HCO3 ABG O2 Saturation ABG Base Excess ABG Hemoglobin ABG Oxyhemoglobin ABG Sodium ABG Potassium ABG Chloride ABG Glucose Oxyhemoglobin Carboxyhemoglobin Sodium Potassium Chloride Carbon Dioxide BUN Creatinine Glucose POC Glucose 127 H 134 H 125 H Hemoglobin A1c Lactic Acid Calcium Magnesium Ferritin Total Bilirubin AST ALT Alkaline Phosphatase Lactate Dehydrogenase Total Creatine Kinase C-Reactive Protein Total Protein Albumin Triglycerides Arterial Blood Glucose Arterial Blood Ionized Calcium Ur Specific [place] Urine WBC (Auto) Vancomycin Trough Coronavirus (PCR) 12/27/20 12/27/20 12/27/20 03:19 05:17 10:52 WBC RBC Hgb Hct MCHC RDW Plt Count Lymph % (Auto) [place] % (Auto) Lymph # (Auto) [place] # (Auto) Baso # (Auto) Seg Neutrophils % Seg Neuts % (Manual) Lymphocytes % (Manual) Nucleated RBC % Seg Neutrophils # Seg Neutrophils # Man Lymphocytes # (Manual) D-Dimer ABG pH POC ABG pCO2 75.0 H POC ABG pO2 74.3 L ABG pO2 ABG HCO3 ABG O2 Saturation ABG Base Excess ABG Hemoglobin 7.3 L ABG Oxyhemoglobin 92.8 L ABG Sodium 135.6 L ABG Potassium ABG Chloride ABG Glucose 151 H Oxyhemoglobin Carboxyhemoglobin 2.0 H Sodium 136 L Potassium Chloride 96.8 L Carbon Dioxide 38 H BUN Creatinine 0.2 L Glucose 139 H POC Glucose 121 H Hemoglobin A1c Lactic Acid Calcium 7.0 L Magnesium Ferritin Total Bilirubin AST 52 H ALT Alkaline Phosphatase Lactate Dehydrogenase Total Creatine Kinase C-Reactive Protein Total Protein 4.7 L D Albumin 1.1 L Triglycerides Arterial Blood Glucose 151 H Arterial Blood Ionized Calcium 4.2 L Ur Specific [place] Urine WBC (Auto) Vancomycin Trough Coronavirus (PCR) 12/27/20 12/27/20 12/27/20 12:02 14:09 17:36 WBC 14.4 H RBC 2.82 L Hgb 8.0 L Hct 25.6 L MCHC 31 L RDW 16.4 H Plt Count 442 H Lymph % (Auto) [place] % (Auto) Lymph # (Auto) [place] # (Auto) Baso # (Auto) Seg Neutrophils % Seg Neuts % (Manual) 36.0 L Lymphocytes % (Manual) 7.0 L Nucleated RBC % 18.0 H Seg Neutrophils # Seg Neutrophils # Man Lymphocytes # (Manual) 1.0 L D-Dimer ABG pH POC ABG pCO2 POC ABG pO2 ABG pO2 ABG HCO3 ABG O2 Saturation ABG Base Excess ABG Hemoglobin ABG Oxyhemoglobin ABG Sodium ABG Potassium ABG Chloride ABG Glucose Oxyhemoglobin Carboxyhemoglobin Sodium Potassium Chloride Carbon Dioxide BUN Creatinine Glucose POC Glucose 126 H 107 H Hemoglobin A1c Lactic Acid Calcium Magnesium Ferritin Total Bilirubin AST ALT Alkaline Phosphatase Lactate Dehydrogenase Total Creatine Kinase C-Reactive Protein Total Protein Albumin Triglycerides Arterial Blood Glucose Arterial Blood Ionized Calcium Ur Specific [place] Urine WBC (Auto) Vancomycin Trough Coronavirus (PCR) 12/27/20 12/28/20 12/28/20 22:58 03:48 05:45 WBC 13.4 H RBC 2.78 L Hgb 7.9 L Hct 25.1 L MCHC RDW 16.4 H Plt Count 484 H Lymph % (Auto) [place] % (Auto) Lymph # (Auto) [place] # (Auto) Baso # (Auto) Seg Neutrophils % Seg Neuts % (Manual) 86.0 H Lymphocytes % (Manual) 2.0 L Nucleated RBC % 2.0 H Seg Neutrophils # Seg Neutrophils # Man 11.5 H Lymphocytes # (Manual) 0.3 L D-Dimer ABG pH POC ABG pCO2 73.1 H POC ABG pO2 66.2 L ABG pO2 ABG HCO3 ABG O2 Saturation ABG Base Excess ABG Hemoglobin 8.9 L ABG Oxyhemoglobin 90.3 L ABG Sodium ABG Potassium 3.3 L ABG Chloride ABG Glucose 107 H Oxyhemoglobin Carboxyhemoglobin 1.6 H Sodium Potassium Chloride Carbon Dioxide BUN Creatinine Glucose POC Glucose 130 H Hemoglobin A1c Lactic Acid Calcium Magnesium Ferritin Total Bilirubin AST ALT Alkaline Phosphatase Lactate Dehydrogenase Total Creatine Kinase C-Reactive Protein Total Protein Albumin Triglycerides Arterial Blood Glucose 107 H Arterial Blood Ionized Calcium 4.4 L Ur Specific [place] Urine WBC (Auto) Vancomycin Trough Coronavirus (PCR) 12/28/20 12/29/20 12/29/20 05:45 04:00 04:00 WBC 18.0 H RBC 2.80 L Hgb 8.0 L Hct 25.3 L MCHC RDW 17.1 H Plt Count 486 H Lymph % (Auto) [place] % (Auto) Lymph # (Auto) [place] # (Auto) Baso # (Auto) Seg Neutrophils % Seg Neuts % (Manual) 83.0 H Lymphocytes % (Manual) 10.0 L Nucleated RBC % 2.0 H Seg Neutrophils # Seg Neutrophils # Man 14.9 H Lymphocytes # (Manual) D-Dimer ABG pH POC ABG pCO2 POC ABG pO2 ABG pO2 ABG HCO3 ABG O2 Saturation ABG Base Excess ABG Hemoglobin ABG Oxyhemoglobin ABG Sodium ABG Potassium ABG Chloride ABG Glucose Oxyhemoglobin Carboxyhemoglobin Sodium Potassium 3.2 L D Chloride Carbon Dioxide 41 H* 38 H BUN Creatinine 0.3 L 0.3 L Glucose 135 H POC Glucose Hemoglobin A1c Lactic Acid Calcium 7.3 L 7.5 L Magnesium Ferritin Total Bilirubin AST ALT Alkaline Phosphatase Lactate Dehydrogenase Total Creatine Kinase C-Reactive Protein Total Protein 6.0 L D 6.1 L Albumin 1.4 L 1.5 L Triglycerides 284 H Arterial Blood Glucose Arterial Blood Ionized Calcium Ur Specific [place] Urine WBC (Auto) Vancomycin Trough Coronavirus (PCR) 12/29/20 12/29/20 12/29/20 04:00 05:42 11:54 WBC RBC Hgb Hct MCHC RDW Plt Count Lymph % (Auto) [place] % (Auto) Lymph # (Auto) [place] # (Auto) Baso # (Auto) Seg Neutrophils % Seg Neuts % (Manual) Lymphocytes % (Manual) Nucleated RBC % Seg Neutrophils # Seg Neutrophils # Man Lymphocytes # (Manual) D-Dimer ABG pH 7.319 L POC ABG pCO2 71.0 H POC ABG pO2 65.2 L ABG pO2 ABG HCO3 ABG O2 Saturation ABG Base Excess ABG Hemoglobin 8.7 L ABG Oxyhemoglobin ABG Sodium ABG Potassium ABG Chloride ABG Glucose 140 H Oxyhemoglobin Carboxyhemoglobin Sodium Potassium Chloride Carbon Dioxide BUN Creatinine Glucose POC Glucose 126 H 128 H Hemoglobin A1c Lactic Acid Calcium Magnesium Ferritin Total Bilirubin AST ALT Alkaline Phosphatase Lactate Dehydrogenase Total Creatine Kinase C-Reactive Protein Total Protein Albumin Triglycerides Arterial Blood Glucose 140 H Arterial Blood Ionized Calcium 4.3 L Ur Specific [place] Urine WBC (Auto) Vancomycin Trough Coronavirus (PCR) 12/29/20 12/29/20 12/30/20 17:54 23:47 04:00 WBC 15.0 H RBC 2.89 L Hgb 8.2 L Hct 26.1 L MCHC RDW 17.3 H Plt Count Lymph % (Auto) 9.2 L [place] % (Auto) Lymph # (Auto) [place] # (Auto) Baso # (Auto) Seg Neutrophils % 87.0 H Seg Neuts % (Manual) Lymphocytes % (Manual) Nucleated RBC % Seg Neutrophils # 13.1 H Seg Neutrophils # Man Lymphocytes # (Manual) D-Dimer ABG pH POC ABG pCO2 POC ABG pO2 ABG pO2 ABG HCO3 ABG O2 Saturation ABG Base Excess ABG Hemoglobin ABG Oxyhemoglobin ABG Sodium ABG Potassium ABG Chloride ABG Glucose Oxyhemoglobin Carboxyhemoglobin Sodium Potassium Chloride Carbon Dioxide BUN Creatinine Glucose POC Glucose 155 H 139 H Hemoglobin A1c Lactic Acid Calcium Magnesium Ferritin Total Bilirubin AST ALT Alkaline Phosphatase Lactate Dehydrogenase Total Creatine Kinase C-Reactive Protein Total Protein Albumin Triglycerides Arterial Blood Glucose Arterial Blood Ionized Calcium Ur Specific [place] Urine WBC (Auto) Vancomycin Trough Coronavirus (PCR) 12/30/20 12/30/20 12/30/20 04:00 04:14 05:25 WBC RBC Hgb Hct MCHC RDW Plt Count Lymph % (Auto) [place] % (Auto) Lymph # (Auto) [place] # (Auto) Baso # (Auto) Seg Neutrophils % Seg Neuts % (Manual) Lymphocytes % (Manual) Nucleated RBC % Seg Neutrophils # Seg Neutrophils # Man Lymphocytes # (Manual) D-Dimer ABG pH POC ABG pCO2 69.3 H POC ABG pO2 61.3 L ABG pO2 ABG HCO3 ABG O2 Saturation ABG Base Excess ABG Hemoglobin 9.1 L ABG Oxyhemoglobin 88.0 L ABG Sodium ABG Potassium ABG Chloride ABG Glucose 159 H Oxyhemoglobin Carboxyhemoglobin 1.8 H Sodium Potassium Chloride Carbon Dioxide 37 H BUN Creatinine 0.3 L Glucose 156 H POC Glucose 141 H Hemoglobin A1c Lactic Acid Calcium 7.6 L Magnesium Ferritin Total Bilirubin AST ALT Alkaline Phosphatase Lactate Dehydrogenase Total Creatine Kinase C-Reactive Protein Total Protein 6.0 L Albumin 1.4 L Triglycerides Arterial Blood Glucose 159 H Arterial Blood Ionized Calcium 4.4 L Ur Specific [place] Urine WBC (Auto) Vancomycin Trough Coronavirus (PCR) 03/12/30/20 12/30/20 12:18 17:37 23:55 WBC RBC Hgb Hct MCHC RDW Plt Count Lymph % (Auto) [place] % (Auto) Lymph # (Auto) [place] # (Auto) Baso # (Auto) Seg Neutrophils % Seg Neuts % (Manual) Lymphocytes % (Manual) Nucleated RBC % Seg Neutrophils # Seg Neutrophils # Man Lymphocytes # (Manual) D-Dimer ABG pH POC ABG pCO2 POC ABG pO2 ABG pO2 ABG HCO3 ABG O2 Saturation ABG Base Excess ABG Hemoglobin ABG Oxyhemoglobin ABG Sodium ABG Potassium ABG Chloride ABG Glucose Oxyhemoglobin Carboxyhemoglobin Sodium Potassium Chloride Carbon Dioxide BUN Creatinine Glucose POC Glucose 147 H 167 H 141 H Hemoglobin A1c Lactic Acid Calcium Magnesium Ferritin Total Bilirubin AST ALT Alkaline Phosphatase Lactate Dehydrogenase Total Creatine Kinase C-Reactive Protein Total Protein Albumin Triglycerides Arterial Blood Glucose Arterial Blood Ionized Calcium Ur Specific [place] Urine WBC (Auto) Vancomycin Trough Coronavirus (PCR) 12/31/20 12/31/20 12/31/20 04:00 05:32 06:19 WBC RBC Hgb Hct MCHC RDW Plt Count Lymph % (Auto) [place] % (Auto) Lymph # (Auto) [place] # (Auto) Baso # (Auto) Seg Neutrophils % Seg Neuts % (Manual) Lymphocytes % (Manual) Nucleated RBC % Seg Neutrophils # Seg Neutrophils # Man Lymphocytes # (Manual) D-Dimer ABG pH 7.316 L POC ABG pCO2 POC ABG pO2 ABG pO2 56.9 L ABG HCO3 38.0 H ABG O2 Saturation 90.4 L ABG Base Excess 11.1 H ABG Hemoglobin 5.1 L ABG Oxyhemoglobin ABG Sodium ABG Potassium ABG Chloride ABG Glucose Oxyhemoglobin 87.7 L Carboxyhemoglobin Sodium Potassium Chloride Carbon Dioxide 37 H BUN Creatinine 0.3 L Glucose 152 H POC Glucose 158 H Hemoglobin A1c Lactic Acid Calcium 7.3 L Magnesium Ferritin Total Bilirubin AST ALT Alkaline Phosphatase Lactate Dehydrogenase Total Creatine Kinase C-Reactive Protein Total Protein 6.1 L Albumin 1.4 L Triglycerides Arterial Blood Glucose Arterial Blood Ionized Calcium Ur Specific [place] Urine WBC (Auto) Vancomycin Trough Coronavirus (PCR) 12/31/20 Unknown WBC 16.2 H RBC 2.89 L Hgb 8.0 L Hct 25.9 L MCHC 31 L RDW 18.2 H Plt Count 458 H Lymph % (Auto) [place] % (Auto) Lymph # (Auto) [place] # (Auto) Baso # (Auto) Seg Neutrophils % Seg Neuts % (Manual) 96.0 H Lymphocytes % (Manual) 3.0 L Nucleated RBC % 3.0 H Seg Neutrophils # Seg Neutrophils # Man 15.6 H Lymphocytes # (Manual) 0.5 L D-Dimer ABG pH POC ABG pCO2 POC ABG pO2 ABG pO2 ABG HCO3 ABG O2 Saturation ABG Base Excess ABG Hemoglobin ABG Oxyhemoglobin ABG Sodium ABG Potassium ABG Chloride ABG Glucose Oxyhemoglobin Carboxyhemoglobin Sodium Potassium Chloride Carbon Dioxide BUN Creatinine Glucose POC Glucose Hemoglobin A1c Lactic Acid Calcium Magnesium Ferritin Total Bilirubin AST ALT Alkaline Phosphatase Lactate Dehydrogenase Total Creatine Kinase C-Reactive Protein Total Protein Albumin Triglycerides Arterial Blood Glucose Arterial Blood Ionized Calcium Ur Specific [place] Urine WBC (Auto) Vancomycin Trough Coronavirus (PCR)
--- NOTE | 2020-12-31 13:00 | Progress Note ---
Assessment and Plan Assessment and plan: 59-year-old female who is smoker who presented to [facility] with shortness of breath cough fever weakness for 1 to 2 days prior to arrival. Per EMS the patient was severely hypoxic with saturations in the low 80s. With all oxygen and nonrebreather came down to low 90s. ID, pulmonary, CCM were consulted. Septic Shock Coag Negative staph/Entrococcus bactermia MRSA/Klebsiella in sputum COVID-19 pneumonia Acute hypoxic hypercapnic respiratory failure Bilateral pneumothorax Pneumomediastinum with subcutaneous emphysema Elevated D-dimer Transaminitis secondary to Covid 19 Klebsiella pneumonia Type 2 diabetes mellitus Severe protien calorie malnutrition secondary to critical illness Metabolic alkalosis Hypercapnia 2/: Patient continues on BiPAP throughout the night. Labs are remarkable for hypoxia with improving renal function but lactic acidosis without fever. CTA has been ordered to rule out pulmonary embolism. I agree with increasing enoxaparin to twice daily full dose for empiric treatment of pulmonary embolism. Will obtain ID consultation on further evaluation for possible underlying pneumonia versus COVID-19. We will also obtain echocardiogram for evaluation. Will discontinue fluids at this time. 2/2; Continue supportive care, Patient remains with very guarded prognosis, remains on BiPAP, continues on Remdesivir, and steroids. Will continue anticoagulation, unable to get CTA Chest due to patients unstable clinical status. Will adjust insulin for better blood glucose 2/3: Continues on BIPAP, no clear improvement at this time. Will continue steroids therapy Remdesivir and also Full anticoagulation at this time. Will update family. Discussed with Lining Machine Operator. 2/4: Taking a break from the BiPAP on high flow and nonrebreather 100% with saturation of 90% becomes hypoxic with any movement. Lining Machine Operator input noted will get a dose of Lasix today. Will await a discussion with ID for possibly increasing steroid. I updated Patient's Cousin, Tayla Esquivel who is the emergency contact center engineer. Blood sugar remains fluctuating secondary to steriods, Encouraged Prone positioning. Noted with mild hyponatremia we will continue to monitor and manage 2/5: Continue supportive care wean oxygen as tolerated prognosis remains guarded. Encouraged to progress as tolerated. Awaiting labs today. Discussed with nursing staff and patient at bedside. 2/6: Discontinued Dexamethasone as Solumedrol started secondary to increased oxygen demand. Will give additional insulin for better control. Continue oxygen support patient still on high flow. Prognosis still guarded 11/22: Patient was intubated and placed on mechanical ventilation. Continue current medication. Will check a.m. labs today. Noted still with hypotension. Doubt septic shock at this time as patient has no new fever. Will adjust insulin for better blood sugar control. 11/23: Patient admitted with COVID-19 despite all efforts patient remains severely hypoxic and now is intubated. Lining Machine Operator input noted. Blood pressure marginal at this time. Very poor prognosis. Continue Solu-Medrol. 11/24. Patient remains very hypoxic. Blood pressure borderline. Plan for initiation of paralytic agents as per court bailiff. Patient may need to be transferred if no improvement. 11/26. Off paralytics. Remains intubated. On steroids. Prognosis is poor. 11/27. Chest xray shows pneumomediastinum and subcutaneous emphysema. Surgery con sulted. Plan for chest tube placement. Sputum culture grew MRSA. Patient started on vancomycin per ID. 11/28. Right chest tube placed yesterday by surgery. Repeat chest x-ray showed left small pneumothorax. Plan for chest tube placement on the left today. Remains on paralytic agents. 11/29. Remains intubated on vent. Had left chest tube placed yesterday. Vitals reviewed. Critical care following 11/30/ Remains on mechanical ventilation. Worsening hypoxia. Bilateral chest tubes in place. Vitals reviewed. Labs reviewed 12/01: Chest tube and mechanical ventilation remains in place, poor prognosis, FIO2 remains at 90%, adjust insulin for better blood glucose control 12/02: Patient remains on full ventilatory support and steroids, still with worsening leukocytosis ?inflammatory or infectious vs steroids. Continue vancomycin. 12/03; slowly weaning, 12/04: Still on the vent FiO2 down to 65% PEEP remains at 18. Still with poor prognosis. 12/05: Patient continues on full ventilatory support per court bailiff PEEP remains at 18. Still with hypercapnic respiratory failure. FiO2 down to 60% this morning. Chest tube to suction still weaning off steroids in the deliberation ongoing for possible a third chest tube as last documentation by surgery shows no plan for it at this time. Continue to manage insulin for better blood sugar control. 12/06:weaned down to 60%, continue supportive care, unable to wean, 12/07; patient remains intubated on ventilatory support, chest tubes in place trach and PEG when patient's Covid test is negative,Per surgery. 12/08; Patient remains intubated remains with hypercapnia and hypoxia. Chest tube still remain in place. He is off antibiotics at this time. Continue steroids which is likely resultant to the leukocytosis. Lining Machine Operator and surgeon following ID input is noted. Prognosis remains guarded to poor 12/10; patient remains intubated on vent, unable to wean awaiting trach and PEG when Covid test is negative, Continue current management 12/11; patient awaiting trach and PEG when Covid test is negative, vent dependent, poor prognosis 12/12; clinically no change, vent dependent, Patient is critically ill with very poor prognosis, awaiting trach and PEG when COVID-19 test turns negative. Plan discussed with nursing staff. Caregivers have discussed with patient's family periodically 12/13: Patient is critically ill with very poor prognosis, awaiting trach and PEG when COVID-19 test turns negative. Plan discussed with nursing staff. Caregivers have discussed with patient's family periodically 12/14: Increase UOP which we will monitor and replete as needed. Patient remain hypoxemic on ABG despite 100 FiO2, remains on fentanyl, precedex, versed and levo gtt. 12/15: Patient remains sedated on fentanyl at 3 mcg, Versed at 30 mg, dexamethasone 0.3 and was on Levophed 6 mcg this morning. Patient's vent settings rate of 30, tidal volume 425, PEEP of 18, FiO2 of 85. RT attempted to wean as tolerated. No acute events reported overnight. Bilateral chest tubes to wall suction. 12/16: Overnight the patient was noted to be bradycardic, Precedex drip was increased to 0.6/fentanyl to 4 mcg/Versed 5 mg, bilateral chest tube to suction. Current vent settings for 425/30/18/0.75, RT to wean as tolerated 12/17: Patient's T-max overnight was 101.2, obtain CXR today, blood culture x2 per ID. Patient remains on fentanyl, Versed, Precedex and Levophed. Current vent settings AC 425/30/18/0.75, RT to wean as tolerated. Continue steroid taper. 12/18: Patient remains sedated on fentanyl, Versed, Precedex and has vasopressor support of Levophed, current vent settings 425/30/18/0.75 with bilateral chest tubes to wall suction. Patient's blood culture from 12/17 grew gram-positive cocci in pairs and chains however the patient is on vancomycin and cefepime. We will continue to follow for speciation and sensitivity. 12/19: Unfortunately remains on full ventilatory support prognosis remains very poor. No new fever however since 12/17. Continue to follow cultures not finalized yet. Antibiotics per ID critical care management input noted. Patient remains on high FiO2 and PEEP at this time. 12/20: Still with intermittent fever, likely secondary to covid 19, still with hyponatremia, continue with tube feed. cultures with coagulas negative staph, await further ID input. Continues on abx. 12/21: Patient remains on fentanyl, Precedex, Versed and Levophed and assist control for 25/30/18/.100 with bilateral chest tubes in place. Patient remains on antibiotic therapy. No acute events reported overnight. 12/22: Patient remains sedated on Precedex and fentanyl and on vasopressor support, blood cultures grew coag negative Staphylococcus and Enterococcus and antibiotic therapy was deescalated to ampicillin by infectious disease. This morning patient was on assist control for 25/30/18/0.100 and respiratory therapy to decrease FiO2 as tolerated. 12/23: Patient remains sedated on Versed, fentanyl, propofol, dexamethasone and vasopressor support with Levophed. Patient is on ampicillin with a T-max of 99 and current vent settings assist-control 425/30/18/0.90 which is being weaned as tolerated by RT. Patient bowel regimen escalated. 12/24: Patient was febrile overnight to 102, remains sedated on Versed, fentanyl, propofol and Precedex and on respiratory support with Levophed. This morning at the time my examination patient was on assist control 425/30/18/0.100. Patient's bowel regimen was escalated. This afternoon patient SPO2 dropped into the upper 60s and low 70s, patient was removed off the ventilator and bagged by RT with improvement in his SPO2 to mid 70s and his ventilator settings were adju sted with an increase in PEEP to 22 and reduction in tidal volume. Patient remained with SPO2 in the 70s to 80s then suddenly dropped his SPO2 again. A CXR was obtained and patient received 40 mg of IV Lasix. CXR showed pneumothorax and general surgery was consulted for chest tube placement. Harmony vergara's existing right chest tube was replaced after removal. During chest tube was placed on the right side and a repeat CXR is being performed. Dr. German and Dr. Henry were kept up to date throughout the process and Dr. Henry was at beside during this time. I attempted to call Kehinde but was unable to contact him but left a voicemail. Jd was called and informed of changes with translation provided by Tayla. I spoke to them on the phone for over 30 minutes and explained the situation. They did not wish to change his CODE STATUS. Per CCM the patient respikes his temperature over the next 24 hours we will reculture his urine and blood. Patient remains on antibiotic therapy for 1 4 days per infectious disease 01/04/2021. Repeat blood cultures are negative. 12/25: Patient developed subcu emphysema on right chest and a repeat CXR shows minimal pneumothorax on the right chest wall which has not increased in size. At the time of my examination patient was on assist control 400/30/18/0.100 and the subcutaneous emphysema was noted after the patient's PEEP was increased. Patient remains sedated on Versed, fentanyl, Precedex and propofol with vasopressor support of Levophed. Patient's family decided to make the patient an AND and his CODE STATUS was updated. We will continue supportive care. Infectious disease has escalated antibiotic therapy to Zosyn. 12/26. Remains mechanically ventilated. On AC 30/400/100% PEEP 22. Not responsive. Sedated. On pressors. Labs reviewed. On antibiotics. 12/27. No change in medical condition. Remains on AC 30/40/1 100% PEEP of 22. Sedated and on pressors. On antibiotics-Zosyn. ID and critical care on board. General surgery also following for management of chest tubes. Prognosis is very poor 12/28: Patient remains sedated on Versed, fentanyl, propofol and Precedex and has vasopressor support with Levophed quad strength at 22. Patient subcu air seems to be bilateral in his upper chest. At the time my examination patient is on 400/30/22/.95 and RT will wean his vent 0.90. Patient still has leukocytosis, metabolic alkalosis, hypokalemia. 12/29: Patient remains sedated on Versed, fentanyl, Precedex and propofol with va sopressor support with Levophed. Patient remains on assist control 400/30/22/0.90 and still [place] ptosis. Patient hypokalemia has resolved 12/30: Remains sedated on propofol, Versed, fentanyl, Precedex and on Levophed. Current vent settings assist-control 400/30/22/0.80 and improving leukocytosis and metabolic alkalosis. He will complete Zosyn today. No acute events reported overnight. Patient's urine output has decreased over the past couple days and we will continue to monitor. 12/31: Patient remains intubated on mechanical ventilation. Continue RASS goal - 4 per CCM. Continue Zosyn per ID recommendations with completion of antibiotics tomorrow. Patient with extremely poor prognosis and agree with DNR status. The high probability of a clinically significant, sudden or life threatening deterioration of the [cardiac, respiratory and neurological] system(s) required my full and direct attention, intervention and personal management. The aggregate critical care time was [33] minutes. This time is in addition to time spent performing reported procedures but includes the following: [x] Data Review and interpretation [x] Patient assessment and monitoring of vital signs [x] Documentation [x] Medication orders and management History Interval history: No new issues overnight Hospitalist Physical - Constitutional Vitals: Temp Pulse Resp BP Pulse Ox 98.3 F 82 30 H 107/63 95 12/31/20 12:35 12/31/20 12:15 12/31/20 12:15 12/31/20 12:15 12/31/20 12:15 General appearance: Present: no acute distress, other (comatose) - EENT Eyes: Present: PERRL, EOM intact ENT: hearing intact, clear oral mucosa, dentition normal - Neck Neck: Present: supple, normal ROM - Respiratory Respiratory effort: normal Respiratory: bilateral: CTA - Cardiovascular Rhythm: regular Heart Sounds: Present: S1 & S2. Absent: gallop, rub - Extremities Extremities: no ischemia, No edema, Full ROM - Abdominal General gastrointestinal: soft, non-tender, non-distended, normal bowel sounds - Integumentary Integumentary: Present: clear, warm, dry - Neurologic Neurologic: CNII-XII intact, moves all extremities HEART Score - HEART Score Troponin: Troponin T < 0.010 ng/mL (0.00-0.029) 12/11/20 06:30 Results - Labs CBC & Chem 7: 12/31/20 Unknown 12/31/20 04:00 Labs: Laboratory Last Values WBC 16.2 K/mm3 (4.5-11.0) H 12/31/20 Unknown RBC 2.89 M/mm3 (3.65-5.03) L 12/31/20 Unknown Hgb 8.0 gm/dl (11.8-15.2) L 12/31/20 Unknown Hct 25.9 % (35.5-45.6) L 12/31/20 Unknown MCV 90 fl (84-94) 12/31/20 Unknown MCH 28 pg (28-32) 12/31/20 Unknown MCHC 31 % (32-34) L 12/31/20 Unknown RDW 18.2 % (13.2-15.2) H 12/31/20 Unknown Plt Count 458 K/mm3 (140-440) H 12/31/20 Unknown Lymph % (Auto) 9.2 % (13.4-35.0) L 12/30/20 04:00 [place] % (Auto) 2.9 % (0.0-7.3) 12/30/20 04:00 Eos % (Auto) 0.6 % (0.0-4.3) 12/30/20 04:00 Baso % (Auto) 0.3 % (0.0-1.8) 12/30/20 04:00 Lymph # (Auto) 1.4 K/mm3 (1.2-5.4) 12/30/20 04:00 [place] # (Auto) 0.4 K/mm3 (0.0-0.8) 12/30/20 04:00 Eos # (Auto) 0.1 K/mm3 (0.0-0.4) 12/30/20 04:00 Baso # (Auto) 0.0 K/mm3 (0.0-0.1) 12/30/20 04:00 Add Manual Diff Complete 12/31/20 Unknown Total Counted 100 12/31/20 Unknown Seg Neutrophils % 87.0 % (40.0-70.0) H 12/30/20 04:00 Seg Neuts % (Manual) 96.0 % (40.0-70.0) H 12/31/20 Unknown Band Neutrophils % 2.0 % 12/28/20 05:45 Lymphocytes % (Manual) 3.0 % (13.4-35.0) L 12/31/20 Unknown Monocytes % (Manual) 4.0 % (0.0-7.3) 12/29/20 04:00 Eosinophils % (Manual) 2.0 % (0.0-4.3) 12/28/20 05:45 Metamyelocytes % 3.0 % 12/29/20 04:00 Myelocytes % 1.0 % 12/31/20 Unknown Nucleated RBC % 3.0 % (0.0-0.9) H 12/31/20 Unknown Seg Neutrophils # 13.1 K/mm3 (1.8-7.7) H 12/30/20 04:00 Seg Neutrophils # Man 15.6 K/mm3 (1.8-7.7) H 12/31/20 Unknown Band Neutrophils # 0.0 K/mm3 12/31/20 Unknown Lymphocytes # (Manual) 0.5 K/mm3 (1.2-5.4) L 12/31/20 Unknown Abs React Lymphs (Man) 0.0 K/mm3 12/31/20 Unknown Monocytes # (Manual) 0.0 K/mm3 (0.0-0.8) 12/31/20 Unknown Eosinophils # (Manual) 0.0 K/mm3 (0.0-0.4) 12/31/20 Unknown Basophils # (Manual) 0.0 K/mm3 (0.0-0.1) 12/31/20 Unknown Metamyelocytes # 0.0 K/mm3 12/31/20 Unknown Myelocytes # 0.2 K/mm3 12/31/20 Unknown Promyelocytes # 0.0 K/mm3 12/31/20 Unknown Blast Cells # 0.0 K/mm3 12/31/20 Unknown WBC Morphology Not Reportable 12/31/20 Unknown Hypersegmented Neuts Not Reportable 12/31/20 Unknown Hyposegmented Neuts Not Reportable 12/31/20 Unknown Hypogranular Neuts Not Reportable 12/31/20 Unknown Smudge Cells Not Reportable 12/31/20 Unknown Toxic Granulation Not Reportable 12/31/20 Unknown Toxic Vacuolation Not Reportable 12/31/20 Unknown Dohle Bodies Not Reportable 12/31/20 Unknown Pelger-Huet Anomaly Not Reportable 12/31/20 Unknown Tony Rods Not Reportable 12/31/20 Unknown Platelet Estimate Consistent w auto 12/31/20 Unknown Clumped Platelets Not Reportable 12/31/20 Unknown Plt Clumps, EDTA Not Reportable 12/31/20 Unknown Large Platelets Not Reportable 12/31/20 Unknown Giant Platelets Not Reportable 12/31/20 Unknown Platelet Satelliting Not Reportable 12/31/20 Unknown Plt Morphology Comment Not Reportable 12/31/20 Unknown RBC Morphology Not Reportable 12/31/20 Unknown Dimorphic RBCs Not Reportable 12/31/20 Unknown Polychromasia Not Reportable 12/31/20 Unknown Hypochromasia Not Reportable 12/31/20 Unknown Poikilocytosis Not Reportable 12/31/20 Unknown Anisocytosis 1+ 12/31/20 Unknown Microcytosis Not Reportable 12/31/20 Unknown Macrocytosis Not Reportable 12/31/20 Unknown Spherocytes Not Reportable 12/31/20 Unknown Pappenheimer Bodies Not Reportable 12/31/20 Unknown Sickle Cells Not Reportable 12/31/20 Unknown Target Cells Not Reportable 12/31/20 Unknown Tear Drop Cells Not Reportable 12/31/20 Unknown Ovalocytes Not Reportable 12/31/20 Unknown Stomatocytes Rare 12/27/20 14:09 Helmet Cells Not Reportable 12/31/20 Unknown [place] Bodies Not Reportable 12/31/20 Unknown [place] Rings Not Reportable 12/31/20 Unknown [place] Cells Not Reportable 12/31/20 Unknown Bite Cells Not Reportable 12/31/20 Unknown Crenated Cell Not Reportable 12/31/20 Unknown Elliptocytes Not Reportable 12/31/20 Unknown Acanthocytes (Spur) Not Reportable 12/31/20 Unknown Rouleaux Not Reportable 12/31/20 Unknown Hemoglobin C Crystals Not Reportable 12/31/20 Unknown Schistocytes Not Reportable 12/31/20 Unknown Malaria parasites Not Reportable 12/31/20 Unknown Yovani Bodies Not Reportable 12/31/20 Unknown Hem Pathologist Commnt No 12/31/20 Unknown D-Dimer 926.11 ng/mlDDU (0-234) H 11/26/20 06:04 ABG pH 7.316 pH Units (7.350-7.450) L 12/31/20 05:32 POC ABG pCO2 69.3 mmHg (32.0-48.0) H 12/30/20 04:14 ABG pCO2 76.2 mm Hg 12/31/20 05:32 POC ABG pO2 61.3 mmHg (83-108) L 12/30/20 04:14 ABG pO2 56.9 mm Hg (80.0-90.0) L 12/31/20 05:32 POC ABG HCO3 36 12/30/20 04:14 ABG HCO3 38.0 mmol/L (20.0-26.0) H 12/31/20 05:32 ABG O2 Saturation 90.4 % (95.0-99.0) L 12/31/20 05:32 ABG O2 Content 6.4 (0.0-44) 12/31/20 05:32 POC ABG Base Excess 8.5 12/30/20 04:14 ABG Base Excess 11.1 mmol/L (-2.0-3.0) H 12/31/20 05:32 ABG Hemoglobin 5.1 gm/dl (14.0-18.0) L 12/31/20 05:32 ABG Oxyhemoglobin 88.0 (94-98) L 12/30/20 04:14 ABG Carboxyhemoglobin 2.4 % (0.0-5.0) 12/31/20 05:32 ABG Methemoglobin 0.6 % (0.0-1.5) 12/31/20 05:32 ABG Sodium 139.4 mmol/L (136.0-145.0) 12/30/20 04:14 ABG Potassium 3.8 mmol/L (3.40-4.50) 12/30/20 04:14 ABG Chloride 103.0 mmol/L (98-107) 12/30/20 04:14 ABG Glucose 159 mg/dL (65-95) H 12/30/20 04:14 Oxyhemoglobin 87.7 % (95.0-99.0) L 12/31/20 05:32 Carboxyhemoglobin 1.8 (0.5-1.5) H 12/30/20 04:14 FiO2 80 % 12/31/20 05:32 FiO2 % 80 12/30/20 04:14 Sodium 144 mmol/L (137-145) 12/31/20 04:00 Potassium 3.8 mmol/L (3.6-5.0) 12/31/20 04:00 Chloride 103.5 mmol/L (98-107) 12/31/20 04:00 Carbon Dioxide 37 mmol/L (22-30) H 12/31/20 04:00 Anion Gap 7 mmol/L 12/31/20 04:00 BUN 16 mg/dL (9-20) 12/31/20 04:00 Creatinine 0.3 mg/dL (0.8-1.3) L 12/31/20 04:00 Estimated GFR > 60 ml/min 12/31/20 04:00 BUN/Creatinine Ratio 53 % 12/31/20 04:00 Glucose 152 mg/dL (75-100) H 12/31/20 04:00 POC Glucose 158 mg/dL (70-105) H 12/31/20 06:19 Hemoglobin A1c 11.7 % (4-6) H 11/16/20 05:29 Lactic Acid 2.60 mmol/L (0.7-2.0) H* 11/16/20 05:29 Calcium 7.3 mg/dL (8.4-10.2) L 12/31/20 04:00 Phosphorus 2.60 mg/dL (2.5-4.5) 12/17/20 17:25 Magnesium 1.60 mg/dL (1.7-2.3) L 12/17/20 17:25 Ferritin 778.8 ng/mL (30.0-300.0) H 11/26/20 04:00 Total Bilirubin 0.30 mg/dL (0.1-1.2) 12/31/20 04:00 AST 23 units/L (5-40) 12/31/20 04:00 ALT 23 units/L (7-56) 12/31/20 04:00 Alkaline Phosphatase 107 units/L (35-129) 12/31/20 04:00 Lactate Dehydrogenase 288 units/L (91-180) H 11/26/20 04:00 Total Creatine Kinase 47 units/L (55-170) L 12/17/20 17:25 CK-MB (CK-2) 1.8 ng/mL (0.0-4.0) 12/17/20 17:25 CK-MB (CK-2) Rel Index 3.8 (0-4) 12/17/20 17:25 Troponin T < 0.010 ng/mL (0.00-0.029) 12/11/20 06:30 C-Reactive Protein 1.40 mg/dL (0.00-1.30) H 11/26/20 04:00 NT-Pro-B Natriuret Pep 107.2 pg/mL (0-900) 11/17/20 10:21 Total Protein 6.1 g/dL (6.3-8.2) L 12/31/20 04:00 Albumin 1.4 g/dL (3.9-5) L 12/31/20 04:00 Albumin/Globulin Ratio 0.3 % 12/31/20 04:00 Triglycerides 284 mg/dL (2-149) H 12/29/20 04:00 Procalcitonin 0.16 ng/mL (<0.15) 12/12/20 05:16 Arterial Blood Glucose 159 mg/dL (65-95) H 12/30/20 04:14 Arterial Blood Ionized Calcium 4.4 mg/dL (4.6-5.3) L 12/30/20 04:14 Urine Color Yellow (Yellow) 12/21/20 Unknown Urine Turbidity Cloudy (Clear) 12/21/20 Unknown Urine pH 6.0 (5.0-7.0) 12/21/20 Unknown Ur Specific [place] 1.013 (1.003-1.030) 12/21/20 Unknown Urine Protein <15 mg/dl mg/dL (Negative) 12/21/20 Unknown Urine Glucose (UA) Neg mg/dL (Negative) 12/21/20 Unknown Urine Ketones Neg mg/dL (Negative) 12/21/20 Unknown Urine Blood Neg (Negative) 12/21/20 Unknown Urine Nitrite Neg (Negative) 12/21/20 Unknown Urine Bilirubin Neg (Negative) 12/21/20 Unknown Urine Urobilinogen < 2.0 mg/dL (<2.0) 12/21/20 Unknown Ur Leukocyte Esterase Mod (Negative) 12/21/20 Unknown Urine WBC (Auto) 172.0 /HPF (0.0-6.0) H 12/21/20 Unknown Urine RBC (Auto) > 182.0 /HPF (0.0-6.0) 12/21/20 Unknown U Epithel Cells (Auto) 3.0 /HPF (0-13.0) 12/21/20 Unknown Urine Bacteria (Auto) 2+ /HPF (Negative) 12/21/20 Unknown Ur Renal Epithelial Cell <1 /LPF 12/21/20 Unknown Urine Mucus 2+ /HPF 12/21/20 Unknown Urine Yeast (Budding) 3+ /HPF 12/21/20 Unknown Vancomycin Trough 16.9 ug/mL (5.0-20.0) 12/19/20 15:46 Coronavirus (PCR) Positive (Negative) A 12/13/20 10:00 Hepatitis A IgM Ab Non-reactive (NonReactive) 12/17/20 21:40 Hep Bs Antigen Non-reactive (Negative) 12/17/20 21:40 Hep B Core IgM Ab Non-reactive (NonReactive) 12/17/20 21:40 Hepatitis C Antibody Non-reactive (NonReactive) 12/17/20 21:40 HIV 1&2 Antibody Rapid Non react (Non React) 12/17/20 21:40 HIV P24 Antigen Non react (Non React) 12/17/20 21:40 - Diagnostic Impressions Diagnostic Impressions: Echocardiogram 11/16/20 10:34 Transthoracic Echocardiogram Indication: Shortness of breath-COVID BP: 108/77 HR: 92 Conclusions *Global left ventricular systolic function is normal. *The estimated ejection fraction is 60-65%. *Mild to moderate concentric left ventricular hypertrophy is observed. *There is trace of mitral regurgitation. *There is mild to moderate tricuspid regurgitation. *There is evidence of mild pulmonary hypertension. *The right ventricular systolic pressure is calculated at 31 mmHg. Findings Left Ventricle: The left ventricular chamber size is normal. Mild to moderate concentric left ventricular hypertrophy is observed. Global left ventricular systolic function is normal. The estimated ejection fraction is 60-65%. Left Atrium: The left atrial chamber size is normal. Right Ventricle: The right ventricular cavity size is normal. The right ventricular global systolic function is normal. Right Atrium: The right atrial cavity size is normal. Aortic Valve: The aortic valve is trileaflet. There is no evidence of aortic regurgitation. There is no evidence of aortic stenosis. Mitral Valve: The mitral valve leaflets appear normal. There is trace of mitral regurgitation. There is no evidence of mitral stenosis. Tricuspid Valve: The tricuspid valve leaflets are normal. There is mild to moderate tricuspid regurgitation. The right ventricular systolic pressure is calculated at 31 mmHg. There is evidence of mild pulmonary hypertension. Pulmonic Valve: There is trace pulmonic regurgitation. Pericardium: There is no pericardial effusion. Aorta: There is no dilatation of the ascending aorta. There is no dilatation of the aortic root. Venous: The inferior vena cava appears normal in size. Measurements Chambers 2D Name Value Normal Range IVSd (2D) 0.81 cm (0.6 - 1.1) LVPWd (2D) 0.79 cm (0.6 - 1.1) LVIDd (2D) 4.22 cm (3.7 - 5.6) LVIDs (2D) 3.1 cm (2 - 3.8) LV FS (2D) 26.71 % - EF Teichholz (2D) 52.55 % - Ao root diameter (2D) 3.34 cm (2 - 3.7) Volumes/Mass Name Value Normal Range LA ESV SP 4CH (A/L) 10.87 ml - LA ESV SP 2CH (A/L) 18.74 ml - LA ESV BP (A/L) 16.38 ml - LA ESV BP (A/L) index 8.62 ml/m2 - LA ESV SP 4CH (MOD) 10.32 ml - LA ESV SP 2CH (MOD) 17.66 ml - LA ESV BP (MOD) 15.12 ml - LA ESV BP (MOD) index 7.96 ml/m2 - Diastolic/Systolic Function Name Value Normal Range MV E-wave Vmax 0.76 m/sec - MV deceleration time 133.63 msec - MV A-wave Vmax 1.1 m/sec - MV E:A ratio 0.69 ratio - Aortic Valve Name Value Normal Range AV Vmax 1.44 m/sec - AV VTI 22.94 cm - AV peak gradient 8.33 mmHg - AV mean gradient 4.73 mmHg - LVOT diameter 2.2 cm - LVOT Vmax 1.04 m/sec - LVOT VTI 18.88 cm - LVOT peak gradient 4.34 mmHg - LVOT mean gradient 2.31 mmHg - SV LVOT 72.05 ml - EVANGELISTA (continuity Vmax) 2.75 cm2 - EVANGELISTA (continuity VTI) 3.14 cm2 - Tricuspid Valve Name Value Normal Range TR Vmax 2.64 m/sec - TR peak gradient 28 mmHg - RAP 3 mmHg - RVSP 31 mmHg - Gupta/IV: Voiding Method Indwelling Catheter IV Catheter Type [Left Peripheral IV Antecubital] Active Medications - Current Medications Current Medications: Generic Name Dose Route Start Last Admin Trade Name Freq PRN Reason Stop Dose Admin Acetaminophen 650 mg 11/15/20 23:55 12/25/20 07:24 Acetaminophen 325 Mg Tab PO 650 mg Q4H PRN Administration Pain MILD(1-3)/Fever >100.5/BUTTS Lipase/Protease/Amylase 1 each 11/23/20 11:53 12/05/20 23:45 Lipase 10,500/Protease 25,000/Amylase 43,750 (Units) Dr Slater FEEDTUBE 1 each PRN PRN Administration For Clogged Feeding Tube Dextrose 25 ml 12/10/20 05:21 12/28/20 12:18 Dextrose 50% In Water (25gm) 50 Ml Syringe IV 10 ml Q30MIN PRN Administration Hypoglycemia Protocol Docusate Sodium 100 mg 12/23/20 10:00 12/31/20 09:03 Docusate Sodium 100 Mg/10 Ml Oral Liqd PO 100 mg BID RAEANN Administration Enoxaparin Sodium 40 mg 12/03/20 22:00 12/30/20 21:31 Enoxaparin 40 Mg/0.4 Ml Inj SUB-Q 40 mg QDAY@2200 RAEANN Administration Famotidine 20 mg 12/16/20 10:00 12/31/20 09:03 Famotidine 20 Mg Tab PO 20 mg BID RAEANN Administration Hydrophilic Ointment 1 applic 11/21/20 21:53 11/30/20 21:33 Lip Therapy Vaseline TP 1 applic Q2HR PRN Administration Dry Lips Midazolam HCl 100 mg/ Sodium 100 mls @ 2 mls/hr 11/21/20 22:00 12/31/20 06:58 Chloride IV 5 mg/hr TITR RAEANN 5 mls/hr Administration Protocol 2 MG/HR Propofol 1,000 mg in 100 mls @ 2.175 mls/hr 11/27/20 12:00 12/31/20 05:13 Diprivan 10 Mg/Ml IV 15 mcg/kg/min TITR RAEANN 6.525 mls/hr Administration Protocol 5 MCG/KG/MIN Dexmedetomidine HCl 400 mcg/ 104 mls @ 4.441 mls/hr 12/10/20 13:00 12/31/20 06:03 Sodium Chloride IV 0.7 mcg/kg/hr TITRATE RAEANN 15.543 mls/hr Administration Protocol 0.2 MCG/KG/HR Fentanyl Citrate 2,000 mcg in 100 mls @ 3.9 mls/hr 12/18/20 19:00 12/31/20 11:52 Fentanyl Drip Premix IV 4 mcg/kg/hr TITR RAEANN 15.6 mls/hr Administration Protocol 1 MCG/KG/HR Vasopressin 20 unit/ Sodium 101 mls @ 9.09 mls/hr 12/24/20 18:30 Chloride IV TITR RAEANN Protocol 0.03 UNITS/MIN Piperacillin Sod/Tazobactam Sod 4.5 gm in 100 mls @ 200 mls/hr 12/25/20 12:00 12/31/20 11:53 Zosyn/Ns 4.5gm/100ml IV 01/01/21 06:29 200 mls/hr Q6H RAEANN Administration Protocol Norepinephrine 8 mg/ Sodium 250 mls @ 3.75 mls/hr 12/25/20 22:00 12/31/20 11:45 Chloride IV 20 mcg/min TITR RAEANN 37.5 mls/hr Titration Protocol 2 MCG/MIN Insulin Glargine 8 units 12/17/20 13:52 12/30/20 21:31 Insulin Glargine 100 Units/Ml SUB-Q 8 units QHS [facility] Administration Insulin Human Lispro 0 unit 11/22/20 06:00 12/31/20 06:21 Insulin Lispro 100 Unit/Ml SUB-Q 3 unit Q6HR [facility] Administration Protocol Metoclopramide HCl 10 mg 11/15/20 23:55 Metoclopramide 10 Mg/2 Ml Inj IV Q6H PRN Nausea And Vomiting Multi-Ingred Cream/Lotion/Oil/Oint 1 applic 11/21/20 21:53 Mineral Oil/Petrolatum, White Ophth Oint 3.5 Gm OU Q4HR PRN Dry Eye(s) Ondansetron HCl 4 mg 11/15/20 23:55 Ondansetron 4 Mg/2 Ml Inj IV Q8H PRN Nausea And Vomiting Polyethylene Glycol 17 gm 12/23/20 10:00 12/31/20 09:03 Polyethylene Glycol 3350 17 Gm Powder PO 17 gm QDAY RAEANN Administration Senna/Docusate Sodium 2 tab 12/21/20 14:00 12/31/20 06:05 Sennosides/Docusate Sodium 8.6/50 Mg Tab PO 2 tab Q8HR RAEANN Administration Simple Syrup 15 ml 11/23/20 11:53 Simple Syrup 15 Ml FEEDTUBE PRN PRN Hypoglycemia Simple Syrup 30 ml 11/23/20 11:53 Simple Syrup 15 Ml FEEDTUBE PRN PRN Hypoglycemia Sodium Bicarbonate 325 mg 11/23/20 11:53 12/05/20 23:46 Sodium Bicarbonate 325 Mg Tab FEEDTUBE 325 mg PRN PRN Administration For Clogged Feeding Tube Sodium Chloride 10 ml 11/16/20 10:00 12/31/20 09:04 Sodium Chloride 0.9% 10 Ml Flush Syringe IV 10 ml BID RAEANN Administration Sodium Chloride 10 ml 11/15/20 23:55 12/03/20 00:21 Sodium Chloride 0.9% 10 Ml Flush Syringe IV 10 ml PRN PRN Administration LINE FLUSH Nutrition/Malnutrition Assess - Dietary Evaluation Nutrition/Malnutrition Findings: Nutrition Notes Start: 11/20/20 12:03 Freq: Status: Active Protocol: Document 12/25/20 11:32 AL (Rec: 12/25/20 11:37 AL [id number]) Co-Sign 12/25/20 11:32 CW Nutrition Notes Initial or Follow up Reassessment Current Diagnosis Diabetes,Sepsis,Respiratory Failure Other Pertinent Diagnosis Bilat pneu, COVID-19 (+) Current Diet Glucerna 1.2 at 60 ml/hr Labs/Tests Reviewed Pertinent Medications Levophed in NS Propofol at 8.7 ml/hr (229 kcal) Lasix Height 5 ft 6 in Weight 83.9 kg Usual Body Weight 80.5 kg [place] Body Weight (kg) 64.54 BMI 29.8 Weight change and time frame Wt change 2.8 kg (3%) noted. Pt has edema. Weight Status Overweight Subjective/Other Information F/U for TF tolerance and last BM. Per RN, pt had last BM yesterday 12/24. Pt tolerates TF at 60 ml/hr (goal rate). Percent of energy/protein needs met: 100%/100% Burn Absent Trauma Absent GI Symptoms None Difficulty In Swallowing,Chewing Current % PO Negligible Minimum of two criteria Yes Interpretation of Weight Loss (severe) >2% in 1 week Fluid Accumulation Moderate to Severe (severe) #3 Nutrition Diagnosis Inadequate oral intake Diagnosis Progress(for reassessment Continues documentation) #2 Nutrition Diagnosis Malnutrition As Evidenced by Signs and Symptoms Pt meeting 100%/100% of estimated energy/protein needs via TF for >7 days Diagnosis Progress(for reassessment Improved documentation) #1 Nutrition Diagnosis Unintended weight loss Diagnosis Progress(for reassessment Continues documentation) Is patient on ventilator? Yes Is Patient Ambulatory and/or Out of Bed No REE-([facility]-confined to bed) 1920.756 Kcal/Kg value to use for calculation 22 Approximate Energy Requirements Using 1846 kcal/Kg Calculation Used for Recommendations [facility] Additional Notes Protein: 87-145 g/day (1.2-2g/ kg) Fluid: 1ml/kcal or per MD Nutrition Intervention Change Diet Order: Continue TF Nutrition Support: Glucerna 1.2 at 65 ml/hr. Flush 125 ml q4h Kcal 1,872 Protein (gm) 93 Fluid (mL) 1,255 Goal #1 Meet at least 75% of energy and protein needs via TF Goal #2 TF tolerance Anticipated Discharge Needs: Unable to determine at this time Follow-Up By: 01/01/21 Additional Comments F/U for TF tolerance.
--- NOTE | 2020-12-31 13:43 | Progress Note ---
Assessment and Plan Cultures: SARS CoV-2 PCR: positive Blood culture: No growth 11/21/2020 tracheal aspirate culture: MRSA 12/09/2020 blood culture: no growth 12/09/2020 sputum culture: Klebsiella 12/17/2020 blood culture: 1 bottle with coag negative staph, second bottle with Enterococcus faecalis 12/17/2020 tracheal aspirate culture: Usual respiratory zachariah 12/21/2020 blood culture: No growth A/P: 59-year-old male with: #Shock: multifactorial. #GPC bacteremia: source unclear. Typically, Enterococcus is not considered a contaminant, however only present in 1 out of 4 bottles while another set is growing Coag negative Staph. #Bilateral pneumonia: secondary to COVID-19. Completed abx, remdesivir. #Klebsiella on ET aspirate culture: ?colonization v/s true disease, difficult to differentiate. Will treat given development of low-grade temperatures and white count. #B/L pneumothorax and pneumomediastinum: s/p chest tubes. #Acute hypoxic respiratory failure: Remains on the vent. Recs: -continue Zosyn, D7 given persistent shock. Complete 7 days. -extremely poor prognosis, agree with DNR status, recent literature showing mortality of 100% in COVID-19 patients who required CPR Rm Carrillo MD [facility], [place] [facility] O: [phone] F: [phone] Subjective Date of service: 12/31/20 Principal diagnosis: COVID-19 Interval history: Afebrile, no acute changes. Objective - Exam Narrative Exam: Physical exam deferred due to PPE conservation strategy. Please refer to primary team's note. - Constitutional Vitals: Vital Signs Temp Pulse Resp BP Pulse Ox 98.3 F 82 30 H 107/63 95 12/31/20 12:35 12/31/20 12:15 12/31/20 12:15 12/31/20 12:15 12/31/20 12:15 Temperature -Last 24 Hours Temperature 98.3 F Temperature 97.8 F Temperature 97.4 F Temperature 97.4 F Temperature 97.2 F Temperature 97 F - Labs CBC & Chem 7: 12/31/20 Unknown 12/31/20 04:00 Labs: Abnormal lab results 12/30/20 12/30/20 12/31/20 Range/Units 17:37 23:55 04:00 WBC (4.5-11.0) K/mm3 RBC (3.65-5.03) M/mm3 Hgb (11.8-15.2) gm/dl Hct (35.5-45.6) % MCHC (32-34) % RDW (13.2-15.2) % Plt Count (140-440) K/mm3 Seg Neuts % (Manual) (40.0-70.0) % Lymphocytes % (Manual) (13.4-35.0) % Nucleated RBC % (0.0-0.9) % Seg Neutrophils # Man (1.8-7.7) K/mm3 Lymphocytes # (Manual) (1.2-5.4) K/mm3 ABG pH (7.350-7.450) pH Units ABG pO2 (80.0-90.0) mm Hg ABG HCO3 (20.0-26.0) mmol/L ABG O2 Saturation (95.0-99.0) % ABG Base Excess (-2.0-3.0) mmol/L ABG Hemoglobin (14.0-18.0) gm/dl Oxyhemoglobin (95.0-99.0) % Carbon Dioxide 37 H (22-30) mmol/L Creatinine 0.3 L (0.8-1.3) mg/dL Glucose 152 H (75-100) mg/dL POC Glucose 167 H 141 H (70-105) mg/dL Calcium 7.3 L (8.4-10.2) mg/dL Total Protein 6.1 L (6.3-8.2) g/dL Albumin 1.4 L (3.9-5) g/dL 12/31/20 12/31/20 12/31/20 Range/Units 05:32 06:19 Unknown WBC 16.2 H (4.5-11.0) K/mm3 RBC 2.89 L (3.65-5.03) M/mm3 Hgb 8.0 L (11.8-15.2) gm/dl Hct 25.9 L (35.5-45.6) % MCHC 31 L (32-34) % RDW 18.2 H (13.2-15.2) % Plt Count 458 H (140-440) K/mm3 Seg Neuts % (Manual) 96.0 H (40.0-70.0) % Lymphocytes % (Manual) 3.0 L (13.4-35.0) % Nucleated RBC % 3.0 H (0.0-0.9) % Seg Neutrophils # Man 15.6 H (1.8-7.7) K/mm3 Lymphocytes # (Manual) 0.5 L (1.2-5.4) K/mm3 ABG pH 7.316 L (7.350-7.450) pH Units ABG pO2 56.9 L (80.0-90.0) mm Hg ABG HCO3 38.0 H (20.0-26.0) mmol/L ABG O2 Saturation 90.4 L (95.0-99.0) % ABG Base Excess 11.1 H (-2.0-3.0) mmol/L ABG Hemoglobin 5.1 L (14.0-18.0) gm/dl Oxyhemoglobin 87.7 L (95.0-99.0) % Carbon Dioxide (22-30) mmol/L Creatinine (0.8-1.3) mg/dL Glucose (75-100) mg/dL POC Glucose 158 H (70-105) mg/dL Calcium (8.4-10.2) mg/dL Total Protein (6.3-8.2) g/dL Albumin (3.9-5) g/dL
[2020-12-31] MEDS: ENOXAPARIN 40 MG/0.4 ML INJ SUB-Q SCH (22:06)
[2020-12-31] MEDS: INSULIN GLARGINE 100 UNITS/ML SUB-Q SCH (22:06)
[2021-01-01] MEDS: PIPERACIL/TAZOBACTA 4.5/NS 100 4.5 GM/100 ML VIAL IV SCH ×2 (00:41→06:33)
[2021-01-01] MEDS: fentaNYL DRIP Premix 2,000 MCG/100 ML BAG IV SCH ×4 (00:42→21:43)
[2021-01-01] MEDS: NORepinephrine 8 MG in SODIUM CHLORIDE 0.9% 250ML 242 ML IV SCH ×3 (01:27→14:51)
[2021-01-01] MEDS: MIDAZOLAM 100 MG in SODIUM CHLORIDE 0.9% 80 ML IV SCH ×2 (03:15→22:58)
[2021-01-01 06:01] LABS: ABG Base Excess 10.7 mmol/L (-2.0-3.0); ABG HCO3 38.8 mmol/L (20.0-26.0); ABG Methemoglobin 0.4 % (0.0-1.5); ABG Oxygen Saturation 85.5 % (95.0-99.0); ABG PCO2 86.9 mm Hg; ABG PH 7.268 pH Units (7.350-7.450); ABG PO2 56.9 mm Hg (80.0-90.0)
[2021-01-01] MEDS: SENNOSIDES/DOCUSATE SODIUM 8.6/50 MG TAB PO SCH ×3 (06:28→21:46)
[2021-01-01] MEDS: INSULIN LISPRO 100 UNIT/ML SUB-Q SCH ×4 (06:34→17:50)
--- NOTE | 2021-01-01 09:20 | Progress Note ---
Assessment and Plan 59 y/o male with acute respiratory failure, abnormal CXR and abnormal lab studies. 01/01/21: Continue chest tubes to Suction, all of them. Continue increased suction on the tubes on the right at least through the weekend. Consider repeat CXR on Monday but no need to order over the weekend, will assess when I get back. Continue sedation at current level. Ok with trying to inch down FiO2 as tolerated but keep PaO2 55 and greater and sats 92% and greater. Guarded to poor prognosis. 12/31/20: Examined chest tubes and increased suction in pleurovac to 30 cmH2O. Only serosanguinous fluid, no blood. Explained to nursing re-inforcing mechanisms with vaseline gauze and slitted 4x4's. 12/30/20: Continue supportive measures. Continue to wean FiO2 for sats >88%, but will go slowly given his tenuous course. Chest tubes to suction. Explained to nursing, that sub q air will be present but for now, nothing to do unless oxygen saturation drops rapidly, then would need stat CXR to evaluate for worsening PTX or tension. 12/29/20: Continue supporitve measures. Continue sedation and vasopressor support. Chest tubes will remain until patient is extubated if able to do so. Prognosis is very very guarded. 12/27/20: Continue supportive measures. Continue sedation and vasopressor support. Chest tubes remain until extubated if able to do so. Very very guarded prognosis. 12/26/20: Very very poor prognosis given prolong time of hypoxemia during the events from and continued hypoxemia despite 100%. PTX's and recurrent PTX's have been very common with this current wave of COVID 19 so not entirely unexpected. Appreciate surgery help with second chest tube. Will Strip tubes again tomorrow morning. COntinue sedation and vasopressor support. Very very poor prognosis. Please do not give any further lasix, as the changes seen are not edema related. 12/24/20: If patient spikes again in the next 24 hours, please reculture urine and blood. In regards to cuff, as long as patient is not losing volumes, no indication to change tube out as of yet. Will continue to monitor. Continue abx as ID recs. Attempt to wean back down again but unfortunately this has been an ongoing issue for this patient. Continue pressors to help achieve adequate sedation for vent management. Prognosis remains guarded. 12/23/20: Continue current level of sedation. Wean parameters as listed below. appreciate ID recs and help. 12/22/20: Continue current level of sedation. Ok to wean FiO2 for sats >88% and PaO2>55mmHg. Follow up ID recs in regards to abx therapy. Prognosis unfortunately still remains guarded. 12/21/20: Back up to 100%. Peep is the same chest tubes intact. Long discussion on rounds, will restart Diprovan to obtain adequate sedation (RASS of -4). Ok to titrate pressors to achieve adequate sedation if blood pressure is compromised by sedatives. Prognosis remains guarded. Awaiting speciation of other cultures. 12/18/20: Still on 75% and 18 of PEEP. Follow up cultures, Blood pending, urine has not resulted yet. Had another temp at 20:00 last night. CXR looks more like pulmonary edema but not in a position to diurese at this time as he occasionally requires vasopressor support given the amount of sedation needed to achieve a RASS of 4. If he continues to spike, would consider hospital acquired coverage of abx therapy. Prognosis remains guarded. 12/17/20: Back down to 75%. Febrile last night, if and when spikes again today, please obtain blood cultures times 2 and urine. Will go ahead and order repeat CXR now. Prognosis still remains guarded. 12/16/20: Back up to 100%. Once stabilized will attempt to wean back down. ABG in the am and may need to consider repeat ABG later this afternoon pending clinical state. Unable to prone given bilateral chest tubes. Prognosis remains guarded to poor. 12/15/20: Tolerating weaning from yesterday. RT to attempt to wean some more today. Kidney function remains unchanged. Guarded prognosis. 12/14/20: Unable to wean FiO2 today. Continue supportive measures. Great that his kidney function has maintained but given the amount of oxygen he continues to require, his chances of recovery continue to decrease. Family aware and will up date them as needed. Very very guarded prognosis. 12/13/20: WIll start Weaning FiO2 again tomorrow morning of PaO2 remains this good. Continue all other supportive measures. Guarded prognosis. Monitor renal function closely. 12/12/20: Long discussion with brother at door. Patient remains full code which is not unreasonable but family is realistic about outcome being poor. Will continue all supportive measures. IF clinical state worsens, will ask family to come back to see patient. Guarded Prognosis. 12/11/20: Will attempt to wean Diprovan off and increase precedex. Triglycerides were ok. IF we have to support with pressors we will but I have asked nursing to please be detailed in their checkouts as to why they did certain things with the continuous drips. Continue supportive measures. Brother is going to try to come and see him from [place] 12/10/20: No acute events overnight. Patient has had waxing and waning of the amount of oxygen he has required over the last 24-72 hours. I have a bad feeling that he is on the brink of cardiac arrest and this could happen at any moment. I am going to reach out to the brother today to explain to him my concerns. Patient is a full code. Very very guarded prognosis. 12/09/20: Repeat ABG later today. Wean FiO2 for sats >88%. Repeat CXR as well. With BP dropping could be relative adrenal insufficiency, will watch for now, however if pressor requirement increases would consider stress dose steroids and maybe volume replacement. Follow up cultures. Guarded prognosis. 12/08/20: Increase TV to 425. Drop FiO2 to 65% and wean for sats >88%. COntinue chest tubes. Change steroids to 20q12. 12/07/20: CXR is stable, no indication for another chest tube at this time. Will repeat ABG in 1 hour post change to 70% and wean accordingly. Dropping steroids to 20q8. Guarded prognosis. Same weaning parameters apply today as of 12/04/20 12/04/20: Continue to wean steroids to off. Continue to wean FiO2 for sats >88%. Keep PEEP at current level, would not feel comfortable weaning PEEP until FiO2 at 35-40%. Continue chest tubes to suction. PaO2 of >55, pH of >7.2 and sats >88% are acceptable. : Dropped steroids down to 40q8 and will start to wean from there. Co ntinue to slowly wean FiO2 first, keep PEEP at current level. Spoke with Kehinde, please see my event note, who is the biological brother. He had no questions but thanked us for our care. Prognosis remains very very guarded. PaO2 of 55 and pH of >7.2 and sats of >88% are all acceptable. 12/02/20: Wean FiO2 for sats >88% and PaO2 >55. Unable to prone currently secondary to bilateral chest tubes. COntinue high dose steroids. CM To figure out who is the immediate next of kin that can make decisions and then we will discuss the current clinical situation with them. 12/01/20: Continue PEEP and FiO2 elevated to keep sats >88% and PaO2 >55. Small lung volumes and high PEEP. very very guarded prognosis. 11/30/20: Worsening hypoxemia. Chest tubes stable. Likely just worsening disease. Unable to prone now. Increase PEEP to 18 and FiO2 back up to 100. Continue 3 sedatives for RASS of -2. Obtain 12 lead to look at T waves as K was only 4.6 on yesterday. Guarded, guarded prognosis 11/29/20: Second chest tube in on yesterday. CXR is stable. ABG unchanged. Will likely increase PEEP now that chest tubes are in. No further paralytics. Still making good urine. Prognosis remains guarded. Will check chemistry to assess Potassium levels given peaked t's seen on monitor. 11/28/20: Second chest tube today. Once chest tube in, will likely increase PE EP to 18 and repeat gas about 2 hours after this. Continue paralytic today. No proning now that patient will have bilateral chest tubes. VEry guarded prognosis. 11/27/20: Spoke with surgery who have agreed to evaluate and placed chest tube on either right or left side pending CXR reading. Will monitor for 36-48 hours and if no resolution, will need chest tube placed on opposite side as well. Once placed, will likely paralyze again but hold on proning for now. Guarded prognosis. 11/26/20: Paralytics are off. Continue current level of sedation. Will prone for 12 hours today and repeat ABG in the am. Continue lung protective strategy. Guarded prognosis. 11/25/20: Prone again to 16 hours, will prone at 12-12:30. Continue paralytics for 24 more hours. Discussed the idea of permissive hypercapnea again today and as long as pH is above 7.2 no changes should be made to TV and or RR without discussing with physician. Continue to monitor urine output, guarded prognosis. Hold on lasix therapy today. 11/24/20: Prone again today. Will try 48 hours of paralyzing the patient to see if this will help with oxygenation. Will speak with RT's about permissive hypercapnea and that pH's of 7.2 and greater are ok. Continue high doses steroids. Prognosis is still very very guarded. If not improvement with paralytics, will attempt transfer. 11/23/20: Prone again today for 12 hours. Continue High Dose steroids. Hold on lasix given marginal BP's. Prognosis is very very guarded to poor. Will continue all supportive measures. If not able to wean from 100%, will attempt transfer for ECMO. 1. Pulm- Agree with concern for covid. Agree with empiric abx but procal is only mildly elevated. Await cultures. Continue bipap therapy for now but will need to monitor closely. IMS has ordered CTA, but I spoke with pharmacy and we will empirically treat with BID lovenox therapy. COntinue empiric steroid therapy for COVID until studies back. Not sure that he will be able to prone on bipap therapy. Monitor volume status and run as dry as possible. 2. Renal-normal function but all electrolytes abnormal. HYponatremia and Hypochloremia volume up vs volume down. Sent BNP. Would suggest obtaning echo as well. Not sure what to make of elevated lactate unless that is from increased work of breathing or damage to other tissue unknown. May need to check LFT's and Coags as well. 3. Guarded Prognosis. CCT 31 minutes. Subjective Date of service: 01/01/21 Principal diagnosis: COVID-19 Interval history: No acute events. PaO2 still 56. Sats still in the mid 90's. pH slightly lower and CO2 slightly higher today. Remainder is unchanged. Objective Vital Signs - 12hr 12/31/20 12/31/20 12/31/20 21:30 21:45 21:53 Temperature Pulse Rate 134 H 138 H 127 H Pulse Rate [ From Monitor] Respiratory 30 H 30 H 30 H Rate Blood Pressure 131/74 116/62 116/62 O2 Sat by Pulse 88 88 87 Oximetry 12/31/20 12/31/20 12/31/20 22:00 22:15 22:30 Temperature Pulse Rate 141 H 129 H 153 H Pulse Rate [ From Monitor] Respiratory 30 H 30 H 30 H Rate Blood Pressure 121/65 118/65 108/65 O2 Sat by Pulse 87 87 88 Oximetry 12/31/20 12/31/20 12/31/20 22:45 23:00 23:15 Temperature Pulse Rate 142 H 138 H 140 H Pulse Rate [ From Monitor] Respiratory 30 H 30 H 30 H Rate Blood Pressure 96/63 101/64 92/59 O2 Sat by Pulse 87 87 88 Oximetry 12/31/20 12/31/20 12/31/20 23:30 23:41 23:45 Temperature 98.6 F Pulse Rate 142 H 139 H Pulse Rate [ From Monitor] Respiratory 30 H 30 H Rate Blood Pressure 100/63 93/57 O2 Sat by Pulse 87 86 Oximetry 01/01/21 01/01/21 01/01/21 00:00 00:15 00:30 Temperature Pulse Rate 132 H 133 H 132 H Pulse Rate [ 133 H From Monitor] Respiratory 30 H 30 H 30 H Rate Blood Pressure 99/57 107/58 97/58 O2 Sat by Pulse 88 88 88 Oximetry 01/01/21 01/01/21 01/01/21 00:45 01:00 01:15 Temperature Pulse Rate 139 H 136 H 134 H Pulse Rate [ From Monitor] Respiratory 30 H 30 H 30 H Rate Blood Pressure 92/54 85/51 79/47 O2 Sat by Pulse 89 88 87 Oximetry 01/01/21 01/01/21 01/01/21 01:31 01:45 02:00 Temperature Pulse Rate 128 H 138 H 132 H Pulse Rate [ From Monitor] Respiratory 30 H 30 H 30 H Rate Blood Pressure 113/59 104/58 100/54 O2 Sat by Pulse 90 87 89 Oximetry 01/01/21 01/01/21 01/01/21 02:15 02:30 02:45 Temperature Pulse Rate 140 H 129 H 131 H Pulse Rate [ From Monitor] Respiratory 30 H 30 H 30 H Rate Blood Pressure 98/62 104/56 103/54 O2 Sat by Pulse 88 89 90 Oximetry 01/01/21 01/01/21 01/01/21 03:00 03:13 03:15 Temperature 98.2 F Pulse Rate 129 H 134 H Pulse Rate [ From Monitor] Respiratory 30 H 30 H Rate Blood Pressure 106/56 102/57 O2 Sat by Pulse 90 90 Oximetry 0301/01/21 01/01/21 03:30 03:45 04:00 Temperature Pulse Rate 132 H 142 H 131 H Pulse Rate [ 142 H From Monitor] Respiratory 30 H 30 H 30 H Rate Blood Pressure 106/57 102/60 103/57 O2 Sat by Pulse 90 89 90 Oximetry 01/01/21 01/01/21 01/01/21 04:15 04:30 04:42 Temperature Pulse Rate 138 H 137 H 133 H Pulse Rate [ From Monitor] Respiratory 30 H 30 H Rate Blood Pressure 110/59 101/60 101/60 O2 Sat by Pulse 89 89 90 Oximetry 01/01/21 01/01/21 01/01/21 04:45 05:00 05:15 Temperature Pulse Rate 131 H 132 H 129 H Pulse Rate [ From Monitor] Respiratory 30 H 30 H 30 H Rate Blood Pressure 101/54 103/58 101/56 O2 Sat by Pulse 89 89 89 Oximetry 01/01/21 01/01/21 01/01/21 05:30 05:45 06:00 Temperature Pulse Rate 127 H 127 H 123 H Pulse Rate [ From Monitor] Respiratory 30 H 30 H 30 H Rate Blood Pressure 104/52 105/55 105/55 O2 Sat by Pulse 89 89 91 Oximetry 01/01/21 01/01/21 01/01/21 06:15 06:30 06:45 Temperature Pulse Rate 126 H 117 H 117 H Pulse Rate [ From Monitor] Respiratory 29 H 30 H 30 H Rate Blood Pressure 100/57 98/59 99/58 O2 Sat by Pulse 86 95 96 Oximetry 01/01/21 01/01/21 01/01/21 07:00 07:15 07:30 Temperature Pulse Rate 113 H 110 H 112 H Pulse Rate [ From Monitor] Respiratory 30 H 30 H 30 H Rate Blood Pressure 98/56 98/55 103/64 O2 Sat by Pulse 97 96 97 Oximetry 01/01/21 01/01/21 01/01/21 07:45 08:00 08:15 Temperature 98.4 F Pulse Rate 110 H 121 H 111 H Pulse Rate [ 107 H From Monitor] Respiratory 30 H 30 H 30 H Rate Blood Pressure 96/57 104/62 99/58 O2 Sat by Pulse 96 96 96 Oximetry 01/01/21 01/01/21 08:30 08:45 Temperature Pulse Rate 110 H 106 H Pulse Rate [ From Monitor] Respiratory 30 H 30 H Rate Blood Pressure 107/67 98/57 O2 Sat by Pulse 96 96 Oximetry Constitutional: lethargic, comatose, other (on vent orally intubated) ENT: other (Now intubated) Effort: other (vent support ) Ascultation: Bilateral: diminished breath sounds, rales, rhonchi, other (coarse BS bilaterally) Percussion: Bilateral: not dull Cardiovascular: regular rate and rhythm (tachy ) Gastrointestinal: soft, non-tender, non-distended Integumentary: normal Extremities: no cyanosis, no edema, pink and warm Neurologic: other (sedated) Psychiatric: other (sedated) CBC and BMP: 12/31/20 Unknown 12/31/20 04:00 ABG, PT/INR, D-dimer: ABG ABG pH 7.268 pH Units (7.350-7.450) L 01/01/21 04:50 POC ABG pCO2 69.3 mmHg (32.0-48.0) H 12/30/20 04:14 ABG pCO2 86.9 mm Hg 01/01/21 04:50 POC ABG pO2 61.3 mmHg (83-108) L 12/30/20 04:14 ABG pO2 56.9 mm Hg (80.0-90.0) L 01/01/21 04:50 POC ABG HCO3 36 12/30/20 04:14 ABG O2 Saturation 85.5 % (95.0-99.0) L 01/01/21 04:50 PT/INR, D-dimer D-Dimer 926.11 ng/mlDDU (0-234) H 11/26/20 06:04 Abnormal lab findings: Abnormal Labs 11/15/20 11/15/20 11/15/20 10:39 10:39 10:39 WBC 14.3 H RBC 5.17 H Hgb Hct MCHC RDW Plt Count Lymph % (Auto) 7.8 L [place] % (Auto) 7.6 H Lymph # (Auto) 1.1 L [place] # (Auto) 1.1 H Baso # (Auto) Seg Neutrophils % 83.3 H Seg Neuts % (Manual) Lymphocytes % (Manual) Nucleated RBC % Seg Neutrophils # 11.9 H Seg Neutrophils # Man Lymphocytes # (Manual) D-Dimer ABG pH POC ABG pCO2 POC ABG pO2 ABG pO2 ABG HCO3 ABG O2 Saturation ABG Base Excess ABG Hemoglobin ABG Oxyhemoglobin ABG Sodium ABG Potassium ABG Chloride ABG Glucose Oxyhemoglobin Carboxyhemoglobin Sodium 128 L Potassium Chloride 96.0 L Carbon Dioxide BUN Creatinine 0.7 L Glucose 238 H POC Glucose Hemoglobin A1c Lactic Acid 4.10 H* Calcium 7.0 L Magnesium Ferritin Total Bilirubin 1.40 H AST 49 H ALT 70 H Alkaline Phosphatase Lactate Dehydrogenase 663 H Total Creatine Kinase C-Reactive Protein 19.80 H Total Protein Albumin 2.9 L Triglycerides Arterial Blood Glucose Arterial Blood Ionized Calcium Ur Specific [place] Urine WBC (Auto) Vancomycin Trough Coronavirus (PCR) 11/15/20 11/15/20 11/15/20 10:39 10:39 11:20 WBC RBC Hgb Hct MCHC RDW Plt Count Lymph % (Auto) [place] % (Auto) Lymph # (Auto) [place] # (Auto) Baso # (Auto) Seg Neutrophils % Seg Neuts % (Manual) Lymphocytes % (Manual) Nucleated RBC % Seg Neutrophils # Seg Neutrophils # Man Lymphocytes # (Manual) D-Dimer > 07646 H ABG pH POC ABG pCO2 29.9 L POC ABG pO2 137.3 H ABG pO2 ABG HCO3 ABG O2 Saturation ABG Base Excess ABG Hemoglobin ABG Oxyhemoglobin ABG Sodium 126.5 L ABG Potassium ABG Chloride ABG Glucose 248 H Oxyhemoglobin Carboxyhemoglobin Sodium Potassium Chloride Carbon Dioxide BUN Creatinine Glucose POC Glucose Hemoglobin A1c Lactic Acid Calcium Magnesium Ferritin 672.8 H Total Bilirubin AST ALT Alkaline Phosphatase Lactate Dehydrogenase Total Creatine Kinase C-Reactive Protein Total Protein Albumin Triglycerides Arterial Blood Glucose 248 H Arterial Blood Ionized Calcium 4.1 L Ur Specific [place] Urine WBC (Auto) Vancomycin Trough Coronavirus (PCR) 11/15/20 11/15/20 11/16/20 13:41 23:41 01:45 WBC RBC Hgb Hct MCHC RDW Plt Count Lymph % (Auto) [place] % (Auto) Lymph # (Auto) [place] # (Auto) Baso # (Auto) Seg Neutrophils % Seg Neuts % (Manual) Lymphocytes % (Manual) Nucleated RBC % Seg Neutrophils # Seg Neutrophils # Man Lymphocytes # (Manual) D-Dimer ABG pH POC ABG pCO2 POC ABG pO2 ABG pO2 ABG HCO3 ABG O2 Saturation ABG Base Excess ABG Hemoglobin ABG Oxyhemoglobin ABG Sodium ABG Potassium ABG Chloride ABG Glucose Oxyhemoglobin Carboxyhemoglobin Sodium Potassium Chloride Carbon Dioxide BUN Creatinine Glucose POC Glucose 284 H Hemoglobin A1c Lactic Acid 2.30 H* Calcium Magnesium Ferritin Total Bilirubin AST ALT Alkaline Phosphatase Lactate Dehydrogenase Total Creatine Kinase C-Reactive Protein Total Protein Albumin Triglycerides Arterial Blood Glucose Arterial Blood Ionized Calcium Ur Specific [place] 1.037 H Urine WBC (Auto) Vancomycin Trough Coronavirus (PCR) 11/16/20 11/16/20 11/16/20 05:29 05:29 05:29 WBC 12.9 H RBC Hgb Hct MCHC RDW Plt Count Lymph % (Auto) 4.5 L [place] % (Auto) Lymph # (Auto) 0.6 L [place] # (Auto) Baso # (Auto) 0.2 H Seg Neutrophils % 89.8 H Seg Neuts % (Manual) Lymphocytes % (Manual) Nucleated RBC % Seg Neutrophils # 11.5 H Seg Neutrophils # Man Lymphocytes # (Manual) D-Dimer ABG pH POC ABG pCO2 POC ABG pO2 ABG pO2 ABG HCO3 ABG O2 Saturation ABG Base Excess ABG Hemoglobin ABG Oxyhemoglobin ABG Sodium ABG Potassium ABG Chloride ABG Glucose Oxyhemoglobin Carboxyhemoglobin Sodium 131 L Potassium Chloride Carbon Dioxide 21 L BUN 23 H Creatinine 0.6 L Glucose 342 H POC Glucose Hemoglobin A1c Lactic Acid 2.60 H* Calcium 7.0 L Magnesium Ferritin Total Bilirubin AST ALT Alkaline Phosphatase Lactate Dehydrogenase Total Creatine Kinase C-Reactive Protein Total Protein Albumin 2.4 L Triglycerides Arterial Blood Glucose Arterial Blood Ionized Calcium Ur Specific [place] Urine WBC (Auto) Vancomycin Trough Coronavirus (PCR) 11/16/20 11/16/20 11/16/20 05:29 08:11 12:11 WBC RBC Hgb Hct MCHC RDW Plt Count Lymph % (Auto) [place] % (Auto) Lymph # (Auto) [place] # (Auto) Baso # (Auto) Seg Neutrophils % Seg Neuts % (Manual) Lymphocytes % (Manual) Nucleated RBC % Seg Neutrophils # Seg Neutrophils # Man Lymphocytes # (Manual) D-Dimer ABG pH POC ABG pCO2 POC ABG pO2 ABG pO2 ABG HCO3 ABG O2 Saturation ABG Base Excess ABG Hemoglobin ABG Oxyhemoglobin ABG Sodium ABG Potassium ABG Chloride ABG Glucose Oxyhemoglobin Carboxyhemoglobin Sodium Potassium Chloride Carbon Dioxide BUN Creatinine Glucose POC Glucose 329 H 320 H Hemoglobin A1c 11.7 H Lactic Acid Calcium Magnesium Ferritin Total Bilirubin AST ALT Alkaline Phosphatase Lactate Dehydrogenase Total Creatine Kinase C-Reactive Protein Total Protein Albumin Triglycerides Arterial Blood Glucose Arterial Blood Ionized Calcium Ur Specific [place] Urine WBC (Auto) Vancomycin Trough Coronavirus (PCR) 11/16/20 11/16/20 11/16/20 16:13 21:29 Unknown WBC RBC Hgb Hct MCHC RDW Plt Count Lymph % (Auto) [place] % (Auto) Lymph # (Auto) [place] # (Auto) Baso # (Auto) Seg Neutrophils % Seg Neuts % (Manual) Lymphocytes % (Manual) Nucleated RBC % Seg Neutrophils # Seg Neutrophils # Man Lymphocytes # (Manual) D-Dimer ABG pH POC ABG pCO2 POC ABG pO2 ABG pO2 ABG HCO3 ABG O2 Saturation ABG Base Excess ABG Hemoglobin ABG Oxyhemoglobin ABG Sodium ABG Potassium ABG Chloride ABG Glucose Oxyhemoglobin Carboxyhemoglobin Sodium Potassium Chloride Carbon Dioxide BUN Creatinine Glucose POC Glucose 257 H 376 H Hemoglobin A1c Lactic Acid Calcium Magnesium Ferritin Total Bilirubin AST ALT Alkaline Phosphatase Lactate Dehydrogenase Total Creatine Kinase C-Reactive Protein Total Protein Albumin Triglycerides Arterial Blood Glucose Arterial Blood Ionized Calcium Ur Specific [place] Urine WBC (Auto) Vancomycin Trough Coronavirus (PCR) Positive A 11/17/20 11/17/20 11/17/20 07:42 12:07 17:25 WBC RBC Hgb Hct MCHC RDW Plt Count Lymph % (Auto) [place] % (Auto) Lymph # (Auto) [place] # (Auto) Baso # (Auto) Seg Neutrophils % Seg Neuts % (Manual) Lymphocytes % (Manual) Nucleated RBC % Seg Neutrophils # Seg Neutrophils # Man Lymphocytes # (Manual) D-Dimer ABG pH POC ABG pCO2 POC ABG pO2 ABG pO2 ABG HCO3 ABG O2 Saturation ABG Base Excess ABG Hemoglobin ABG Oxyhemoglobin ABG Sodium ABG Potassium ABG Chloride ABG Glucose Oxyhemoglobin Carboxyhemoglobin Sodium Potassium Chloride Carbon Dioxide BUN Creatinine Glucose POC Glucose 231 H 380 H 302 H Hemoglobin A1c Lactic Acid Calcium Magnesium Ferritin Total Bilirubin AST ALT Alkaline Phosphatase Lactate Dehydrogenase Total Creatine Kinase C-Reactive Protein Total Protein Albumin Triglycerides Arterial Blood Glucose Arterial Blood Ionized Calcium Ur Specific [place] Urine WBC (Auto) Vancomycin Trough Coronavirus (PCR) 11/17/20 11/18/20 11/18/20 21:53 04:25 07:45 WBC RBC Hgb Hct MCHC RDW Plt Count Lymph % (Auto) [place] % (Auto) Lymph # (Auto) [place] # (Auto) Baso # (Auto) Seg Neutrophils % Seg Neuts % (Manual) Lymphocytes % (Manual) Nucleated RBC % Seg Neutrophils # Seg Neutrophils # Man Lymphocytes # (Manual) D-Dimer ABG pH POC ABG pCO2 POC ABG pO2 ABG pO2 ABG HCO3 ABG O2 Saturation ABG Base Excess ABG Hemoglobin ABG Oxyhemoglobin ABG Sodium ABG Potassium ABG Chloride ABG Glucose Oxyhemoglobin Carboxyhemoglobin Sodium 136 L Potassium Chloride Carbon Dioxide BUN 24 H Creatinine 0.6 L Glucose 212 H POC Glucose 293 H 216 H Hemoglobin A1c Lactic Acid Calcium 7.4 L Magnesium Ferritin Total Bilirubin AST 41 H ALT Alkaline Phosphatase 142 H Lactate Dehydrogenase Total Creatine Kinase C-Reactive Protein Total Protein Albumin 2.3 L Triglycerides Arterial Blood Glucose Arterial Blood Ionized Calcium Ur Specific [place] Urine WBC (Auto) Vancomycin Trough Coronavirus (PCR) 11/18/20 11/18/20 11/18/20 12:28 15:58 21:37 WBC RBC Hgb Hct MCHC RDW Plt Count Lymph % (Auto) [place] % (Auto) Lymph # (Auto) [place] # (Auto) Baso # (Auto) Seg Neutrophils % Seg Neuts % (Manual) Lymphocytes % (Manual) Nucleated RBC % Seg Neutrophils # Seg Neutrophils # Man Lymphocytes # (Manual) D-Dimer ABG pH POC ABG pCO2 POC ABG pO2 ABG pO2 ABG HCO3 ABG O2 Saturation ABG Base Excess ABG Hemoglobin ABG Oxyhemoglobin ABG Sodium ABG Potassium ABG Chloride ABG Glucose Oxyhemoglobin Carboxyhemoglobin Sodium Potassium Chloride Carbon Dioxide BUN Creatinine Glucose POC Glucose 165 H 220 H 311 H Hemoglobin A1c Lactic Acid Calcium Magnesium Ferritin Total Bilirubin AST ALT Alkaline Phosphatase Lactate Dehydrogenase Total Creatine Kinase C-Reactive Protein Total Protein Albumin Triglycerides Arterial Blood Glucose Arterial Blood Ionized Calcium Ur Specific [place] Urine WBC (Auto) Vancomycin Trough Coronavirus (PCR) 11/19/20 11/19/20 11/19/20 05:35 07:40 12:39 WBC RBC Hgb Hct MCHC RDW Plt Count Lymph % (Auto) [place] % (Auto) Lymph # (Auto) [place] # (Auto) Baso # (Auto) Seg Neutrophils % Seg Neuts % (Manual) Lymphocytes % (Manual) Nucleated RBC % Seg Neutrophils # Seg Neutrophils # Man Lymphocytes # (Manual) D-Dimer ABG pH POC ABG pCO2 POC ABG pO2 ABG pO2 ABG HCO3 ABG O2 Saturation ABG Base Excess ABG Hemoglobin ABG Oxyhemoglobin ABG Sodium ABG Potassium ABG Chloride ABG Glucose Oxyhemoglobin Carboxyhemoglobin Sodium 132 L Potassium Chloride Carbon Dioxide BUN 25 H Creatinine 0.5 L Glucose 179 H POC Glucose 149 H 306 H Hemoglobin A1c Lactic Acid Calcium 7.5 L Magnesium Ferritin Total Bilirubin AST ALT Alkaline Phosphatase 139 H Lactate Dehydrogenase Total Creatine Kinase C-Reactive Protein Total Protein Albumin 2.4 L Triglycerides Arterial Blood Glucose Arterial Blood Ionized Calcium Ur Specific [place] Urine WBC (Auto) Vancomycin Trough Coronavirus (PCR) 11/19/20 11/19/20 11/20/20 16:17 21:25 08:30 WBC RBC Hgb Hct MCHC RDW Plt Count Lymph % (Auto) [place] % (Auto) Lymph # (Auto) [place] # (Auto) Baso # (Auto) Seg Neutrophils % Seg Neuts % (Manual) Lymphocytes % (Manual) Nucleated RBC % Seg Neutrophils # Seg Neutrophils # Man Lymphocytes # (Manual) D-Dimer ABG pH POC ABG pCO2 POC ABG pO2 ABG pO2 ABG HCO3 ABG O2 Saturation ABG Base Excess ABG Hemoglobin ABG Oxyhemoglobin ABG Sodium ABG Potassium ABG Chloride ABG Glucose Oxyhemoglobin Carboxyhemoglobin Sodium Potassium Chloride Carbon Dioxide BUN Creatinine Glucose POC Glucose 364 H 347 H 141 H Hemoglobin A1c Lactic Acid Calcium Magnesium Ferritin Total Bilirubin AST ALT Alkaline Phosphatase Lactate Dehydrogenase Total Creatine Kinase C-Reactive Protein Total Protein Albumin Triglycerides Arterial Blood Glucose Arterial Blood Ionized Calcium Ur Specific [place] Urine WBC (Auto) Vancomycin Trough Coronavirus (PCR) 11/20/20 11/20/20 11/20/20 08:50 11:32 16:19 WBC RBC Hgb Hct MCHC RDW Plt Count Lymph % (Auto) [place] % (Auto) Lymph # (Auto) [place] # (Auto) Baso # (Auto) Seg Neutrophils % Seg Neuts % (Manual) Lymphocytes % (Manual) Nucleated RBC % Seg Neutrophils # Seg Neutrophils # Man Lymphocytes # (Manual) D-Dimer ABG pH POC ABG pCO2 POC ABG pO2 ABG pO2 ABG HCO3 ABG O2 Saturation ABG Base Excess ABG Hemoglobin ABG Oxyhemoglobin ABG Sodium ABG Potassium ABG Chloride ABG Glucose Oxyhemoglobin Carboxyhemoglobin Sodium 132 L Potassium Chloride 97.6 L Carbon Dioxide BUN 26 H Creatinine 0.5 L Glucose 201 H POC Glucose 296 H 327 H Hemoglobin A1c Lactic Acid Calcium 7.9 L Magnesium Ferritin Total Bilirubin AST ALT Alkaline Phosphatase 137 H Lactate Dehydrogenase Total Creatine Kinase C-Reactive Protein Total Protein Albumin 2.6 L Triglycerides Arterial Blood Glucose Arterial Blood Ionized Calcium Ur Specific [place] Urine WBC (Auto) Vancomycin Trough Coronavirus (PCR) 11/20/20 11/21/20 11/21/20 22:09 07:59 13:51 WBC RBC Hgb Hct MCHC RDW Plt Count Lymph % (Auto) [place] % (Auto) Lymph # (Auto) [place] # (Auto) Baso # (Auto) Seg Neutrophils % Seg Neuts % (Manual) Lymphocytes % (Manual) Nucleated RBC % Seg Neutrophils # Seg Neutrophils # Man Lymphocytes # (Manual) D-Dimer ABG pH POC ABG pCO2 POC ABG pO2 ABG pO2 ABG HCO3 ABG O2 Saturation ABG Base Excess ABG Hemoglobin ABG Oxyhemoglobin ABG Sodium ABG Potassium ABG Chloride ABG Glucose Oxyhemoglobin Carboxyhemoglobin Sodium Potassium Chloride Carbon Dioxide BUN Creatinine Glucose POC Glucose 311 H 218 H 304 H Hemoglobin A1c Lactic Acid Calcium Magnesium Ferritin Total Bilirubin AST ALT Alkaline Phosphatase Lactate Dehydrogenase Total Creatine Kinase C-Reactive Protein Total Protein Albumin Triglycerides Arterial Blood Glucose Arterial Blood Ionized Calcium Ur Specific [place] Urine WBC (Auto) Vancomycin Trough Coronavirus (PCR) 11/21/20 11/21/20 11/21/20 16:09 21:34 23:00 WBC RBC Hgb Hct MCHC RDW Plt Count Lymph % (Auto) [place] % (Auto) Lymph # (Auto) [place] # (Auto) Baso # (Auto) Seg Neutrophils % Seg Neuts % (Manual) Lymphocytes % (Manual) Nucleated RBC % Seg Neutrophils # Seg Neutrophils # Man Lymphocytes # (Manual) D-Dimer ABG pH 7.206 L POC ABG pCO2 59.3 H POC ABG pO2 76.7 L ABG pO2 ABG HCO3 ABG O2 Saturation ABG Base Excess ABG Hemoglobin ABG Oxyhemoglobin ABG Sodium 133.1 L ABG Potassium ABG Chloride ABG Glucose 320 H Oxyhemoglobin Carboxyhemoglobin Sodium Potassium Chloride Carbon Dioxide BUN Creatinine Glucose POC Glucose 239 H 279 H Hemoglobin A1c Lactic Acid Calcium Magnesium Ferritin Total Bilirubin AST ALT Alkaline Phosphatase Lactate Dehydrogenase Total Creatine Kinase C-Reactive Protein Total Protein Albumin Triglycerides Arterial Blood Glucose 320 H Arterial Blood Ionized Calcium Ur Specific [place] Urine WBC (Auto) Vancomycin Trough Coronavirus (PCR) 11/22/20 11/22/20 11/22/20 04:52 04:52 04:52 WBC RBC Hgb Hct MCHC RDW Plt Count Lymph % (Auto) [place] % (Auto) Lymph # (Auto) [place] # (Auto) Baso # (Auto) Seg Neutrophils % Seg Neuts % (Manual) Lymphocytes % (Manual) Nucleated RBC % Seg Neutrophils # Seg Neutrophils # Man Lymphocytes # (Manual) D-Dimer 1858.36 H ABG pH POC ABG pCO2 POC ABG pO2 ABG pO2 ABG HCO3 ABG O2 Saturation ABG Base Excess ABG Hemoglobin ABG Oxyhemoglobin ABG Sodium ABG Potassium ABG Chloride ABG Glucose Oxyhemoglobin Carboxyhemoglobin Sodium Potassium Chloride Carbon Dioxide BUN Creatinine Glucose POC Glucose Hemoglobin A1c Lactic Acid Calcium Magnesium Ferritin 734.2 H Total Bilirubin AST ALT Alkaline Phosphatase Lactate Dehydrogenase 404 H Total Creatine Kinase C-Reactive Protein 2.80 H Total Protein Albumin Triglycerides Arterial Blood Glucose Arterial Blood Ionized Calcium Ur Specific [place] Urine WBC (Auto) Vancomycin Trough Coronavirus (PCR) 11/22/20 11/22/20 11/22/20 05:12 05:39 11:50 WBC RBC Hgb Hct MCHC RDW Plt Count Lymph % (Auto) [place] % (Auto) Lymph # (Auto) [place] # (Auto) Baso # (Auto) Seg Neutrophils % Seg Neuts % (Manual) Lymphocytes % (Manual) Nucleated RBC % Seg Neutrophils # Seg Neutrophils # Man Lymphocytes # (Manual) D-Dimer ABG pH POC ABG pCO2 POC ABG pO2 51.0 L ABG pO2 ABG HCO3 ABG O2 Saturation ABG Base Excess ABG Hemoglobin ABG Oxyhemoglobin ABG Sodium 131.2 L ABG Potassium 4.6 H ABG Chloride ABG Glucose 317 H Oxyhemoglobin Carboxyhemoglobin Sodium Potassium Chloride Carbon Dioxide BUN Creatinine Glucose POC Glucose 340 H 417 H Hemoglobin A1c Lactic Acid Calcium Magnesium Ferritin Total Bilirubin AST ALT Alkaline Phosphatase Lactate Dehydrogenase Total Creatine Kinase C-Reactive Protein Total Protein Albumin Triglycerides Arterial Blood Glucose 317 H Arterial Blood Ionized Calcium 4.4 L Ur Specific [place] Urine WBC (Auto) Vancomycin Trough Coronavirus (PCR) 11/22/20 11/22/20 11/22/20 12:22 12:22 17:10 WBC 14.4 H RBC Hgb Hct MCHC RDW Plt Count Lymph % (Auto) [place] % (Auto) Lymph # (Auto) [place] # (Auto) Baso # (Auto) Seg Neutrophils % Seg Neuts % (Manual) 98.0 H Lymphocytes % (Manual) Nucleated RBC % Seg Neutrophils # Seg Neutrophils # Man 14.1 H Lymphocytes # (Manual) 0.0 L D-Dimer ABG pH POC ABG pCO2 POC ABG pO2 ABG pO2 ABG HCO3 ABG O2 Saturation ABG Base Excess ABG Hemoglobin ABG Oxyhemoglobin ABG Sodium ABG Potassium ABG Chloride ABG Glucose Oxyhemoglobin Carboxyhemoglobin Sodium 132 L Potassium Chloride Carbon Dioxide BUN 36 H Creatinine 0.6 L Glucose 219 H POC Glucose 157 H Hemoglobin A1c Lactic Acid Calcium 7.2 L Magnesium Ferritin Total Bilirubin AST ALT Alkaline Phosphatase Lactate Dehydrogenase Total Creatine Kinase C-Reactive Protein Total Protein Albumin Triglycerides Arterial Blood Glucose Arterial Blood Ionized Calcium Ur Specific [place] Urine WBC (Auto) Vancomycin Trough Coronavirus (PCR) 11/22/20 11/22/20 11/22/20 18:33 21:44 23:47 WBC RBC Hgb Hct MCHC RDW Plt Count Lymph % (Auto) [place] % (Auto) Lymph # (Auto) [place] # (Auto) Baso # (Auto) Seg Neutrophils % Seg Neuts % (Manual) Lymphocytes % (Manual) Nucleated RBC % Seg Neutrophils # Seg Neutrophils # Man Lymphocytes # (Manual) D-Dimer ABG pH POC ABG pCO2 POC ABG pO2 60.8 L ABG pO2 ABG HCO3 ABG O2 Saturation ABG Base Excess ABG Hemoglobin ABG Oxyhemoglobin 88.1 L ABG Sodium 135.1 L ABG Potassium ABG Chloride ABG Glucose 141 H Oxyhemoglobin Carboxyhemoglobin Sodium Potassium Chloride Carbon Dioxide BUN Creatinine Glucose POC Glucose 117 H 123 H Hemoglobin A1c Lactic Acid Calcium Magnesium Ferritin Total Bilirubin AST ALT Alkaline Phosphatase Lactate Dehydrogenase Total Creatine Kinase C-Reactive Protein Total Protein Albumin Triglycerides Arterial Blood Glucose 141 H Arterial Blood Ionized Calcium Ur Specific [place] Urine WBC (Auto) Vancomycin Trough Coronavirus (PCR) 11/23/20 11/23/20 11/23/20 04:00 04:00 05:23 WBC 14.4 H RBC Hgb Hct MCHC RDW Plt Count Lymph % (Auto) [place] % (Auto) Lymph # (Auto) [place] # (Auto) Baso # (Auto) Seg Neutrophils % Seg Neuts % (Manual) Lymphocytes % (Manual) Nucleated RBC % Seg Neutrophils # Seg Neutrophils # Man Lymphocytes # (Manual) D-Dimer ABG pH POC ABG pCO2 POC ABG pO2 ABG pO2 ABG HCO3 ABG O2 Saturation ABG Base Excess ABG Hemoglobin ABG Oxyhemoglobin ABG Sodium ABG Potassium ABG Chloride ABG Glucose Oxyhemoglobin Carboxyhemoglobin Sodium 136 L Potassium Chloride Carbon Dioxide BUN 33 H Creatinine 0.6 L Glucose 115 H POC Glucose 173 H Hemoglobin A1c Lactic Acid Calcium 7.1 L Magnesium Ferritin Total Bilirubin AST 64 H ALT 75 H Alkaline Phosphatase Lactate Dehydrogenase Total Creatine Kinase C-Reactive Protein Total Protein 5.9 L D Albumin 2.4 L Triglycerides Arterial Blood Glucose Arterial Blood Ionized Calcium Ur Specific [place] Urine WBC (Auto) Vancomycin Trough Coronavirus (PCR) 11/23/20 11/23/20 11/23/20 05:40 11:27 17:10 WBC RBC Hgb Hct MCHC RDW Plt Count Lymph % (Auto) [place] % (Auto) Lymph # (Auto) [place] # (Auto) Baso # (Auto) Seg Neutrophils % Seg Neuts % (Manual) Lymphocytes % (Manual) Nucleated RBC % Seg Neutrophils # Seg Neutrophils # Man Lymphocytes # (Manual) D-Dimer ABG pH POC ABG pCO2 POC ABG pO2 56.5 L ABG pO2 ABG HCO3 ABG O2 Saturation ABG Base Excess ABG Hemoglobin ABG Oxyhemoglobin ABG Sodium ABG Potassium ABG Chloride 109.0 H ABG Glucose 114 H Oxyhemoglobin Carboxyhemoglobin Sodium Potassium Chloride Carbon Dioxide BUN Creatinine Glucose POC Glucose 114 H 136 H Hemoglobin A1c Lactic Acid Calcium Magnesium Ferritin Total Bilirubin AST ALT Alkaline Phosphatase Lactate Dehydrogenase Total Creatine Kinase C-Reactive Protein Total Protein Albumin Triglycerides Arterial Blood Glucose 114 H Arterial Blood Ionized Calcium 4.5 L Ur Specific [place] Urine WBC (Auto) Vancomycin Trough Coronavirus (PCR) 11/24/20 11/24/20 11/24/20 05:14 05:14 05:14 WBC RBC Hgb Hct MCHC RDW Plt Count Lymph % (Auto) [place] % (Auto) Lymph # (Auto) [place] # (Auto) Baso # (Auto) Seg Neutrophils % Seg Neuts % (Manual) Lymphocytes % (Manual) Nucleated RBC % Seg Neutrophils # Seg Neutrophils # Man Lymphocytes # (Manual) D-Dimer 1433.39 H ABG pH POC ABG pCO2 POC ABG pO2 ABG pO2 ABG HCO3 ABG O2 Saturation ABG Base Excess ABG Hemoglobin ABG Oxyhemoglobin ABG Sodium ABG Potassium ABG Chloride ABG Glucose Oxyhemoglobin Carboxyhemoglobin Sodium Potassium Chloride Carbon Dioxide BUN Creatinine Glucose POC Glucose Hemoglobin A1c Lactic Acid Calcium Magnesium Ferritin 997.5 H Total Bilirubin AST ALT Alkaline Phosphatase Lactate Dehydrogenase 463 H Total Creatine Kinase C-Reactive Protein Total Protein Albumin Triglycerides Arterial Blood Glucose Arterial Blood Ionized Calcium Ur Specific [place] Urine WBC (Auto) Vancomycin Trough Coronavirus (PCR) 11/24/20 11/24/20 11/24/20 05:31 05:36 12:05 WBC RBC Hgb Hct MCHC RDW Plt Count Lymph % (Auto) [place] % (Auto) Lymph # (Auto) [place] # (Auto) Baso # (Auto) Seg Neutrophils % Seg Neuts % (Manual) Lymphocytes % (Manual) Nucleated RBC % Seg Neutrophils # Seg Neutrophils # Man Lymphocytes # (Manual) D-Dimer ABG pH POC ABG pCO2 POC ABG pO2 57.2 L ABG pO2 ABG HCO3 ABG O2 Saturation ABG Base Excess ABG Hemoglobin ABG Oxyhemoglobin ABG Sodium ABG Potassium ABG Chloride ABG Glucose 180 H Oxyhemoglobin Carboxyhemoglobin Sodium Potassium Chloride Carbon Dioxide BUN Creatinine Glucose POC Glucose 199 H 143 H Hemoglobin A1c Lactic Acid Calcium Magnesium Ferritin Total Bilirubin AST ALT Alkaline Phosphatase Lactate Dehydrogenase Total Creatine Kinase C-Reactive Protein Total Protein Albumin Triglycerides Arterial Blood Glucose 180 H Arterial Blood Ionized Calcium 4.5 L Ur Specific [place] Urine WBC (Auto) Vancomycin Trough Coronavirus (PCR) 11/24/20 11/24/20 11/24/20 12:14 17:47 23:47 WBC RBC Hgb Hct MCHC RDW Plt Count Lymph % (Auto) [place] % (Auto) Lymph # (Auto) [place] # (Auto) Baso # (Auto) Seg Neutrophils % Seg Neuts % (Manual) Lymphocytes % (Manual) Nucleated RBC % Seg Neutrophils # Seg Neutrophils # Man Lymphocytes # (Manual) D-Dimer ABG pH 7.261 L POC ABG pCO2 59.7 H POC ABG pO2 75.7 L ABG pO2 ABG HCO3 ABG O2 Saturation ABG Base Excess ABG Hemoglobin ABG Oxyhemoglobin 92.5 L ABG Sodium ABG Potassium ABG Chloride 108.0 H ABG Glucose 150 H Oxyhemoglobin Carboxyhemoglobin Sodium Potassium Chloride Carbon Dioxide BUN Creatinine Glucose POC Glucose 223 H 179 H Hemoglobin A1c Lactic Acid Calcium Magnesium Ferritin Total Bilirubin AST ALT Alkaline Phosphatase Lactate Dehydrogenase Total Creatine Kinase C-Reactive Protein Total Protein Albumin Triglycerides Arterial Blood Glucose 150 H Arterial Blood Ionized Calcium Ur Specific [place] Urine WBC (Auto) Vancomycin Trough Coronavirus (PCR) 11/25/20 11/25/20 11/25/20 03:29 05:07 05:15 WBC 13.9 H RBC Hgb Hct MCHC RDW Plt Count Lymph % (Auto) [place] % (Auto) Lymph # (Auto) [place] # (Auto) Baso # (Auto) Seg Neutrophils % Seg Neuts % (Manual) 97.0 H Lymphocytes % (Manual) Nucleated RBC % Seg Neutrophils # Seg Neutrophils # Man 13.5 H Lymphocytes # (Manual) 0.0 L D-Dimer ABG pH 7.272 L POC ABG pCO2 69.0 H POC ABG pO2 132.9 H ABG pO2 ABG HCO3 ABG O2 Saturation ABG Base Excess ABG Hemoglobin ABG Oxyhemoglobin ABG Sodium ABG Potassium ABG Chloride ABG Glucose 174 H Oxyhemoglobin Carboxyhemoglobin Sodium Potassium Chloride Carbon Dioxide BUN Creatinine Glucose POC Glucose 168 H Hemoglobin A1c Lactic Acid Calcium Magnesium Ferritin Total Bilirubin AST ALT Alkaline Phosphatase Lactate Dehydrogenase Total Creatine Kinase C-Reactive Protein Total Protein Albumin Triglycerides Arterial Blood Glucose 174 H Arterial Blood Ionized Calcium Ur Specific [place] Urine WBC (Auto) Vancomycin Trough Coronavirus (PCR) 11/25/20 11/25/20 11/25/20 05:15 11:25 17:35 WBC RBC Hgb Hct MCHC RDW Plt Count Lymph % (Auto) [place] % (Auto) Lymph # (Auto) [place] # (Auto) Baso # (Auto) Seg Neutrophils % Seg Neuts % (Manual) Lymphocytes % (Manual) Nucleated RBC % Seg Neutrophils # Seg Neutrophils # Man Lymphocytes # (Manual) D-Dimer ABG pH POC ABG pCO2 POC ABG pO2 ABG pO2 ABG HCO3 ABG O2 Saturation ABG Base Excess ABG Hemoglobin ABG Oxyhemoglobin ABG Sodium ABG Potassium ABG Chloride ABG Glucose Oxyhemoglobin Carboxyhemoglobin Sodium Potassium Chloride Carbon Dioxide BUN 29 H Creatinine 0.5 L Glucose 161 H POC Glucose 224 H 228 H Hemoglobin A1c Lactic Acid Calcium 7.8 L Magnesium Ferritin Total Bilirubin AST 89 H ALT 129 H Alkaline Phosphatase Lactate Dehydrogenase Total Creatine Kinase C-Reactive Protein Total Protein 5.8 L Albumin 2.5 L Triglycerides Arterial Blood Glucose Arterial Blood Ionized Calcium Ur Specific [place] Urine WBC (Auto) Vancomycin Trough Coronavirus (PCR) 11/25/20 11/25/20 11/26/20 20:45 23:28 04:00 WBC RBC Hgb Hct MCHC RDW Plt Count Lymph % (Auto) [place] % (Auto) Lymph # (Auto) [place] # (Auto) Baso # (Auto) Seg Neutrophils % Seg Neuts % (Manual) Lymphocytes % (Manual) Nucleated RBC % Seg Neutrophils # Seg Neutrophils # Man Lymphocytes # (Manual) D-Dimer ABG pH POC ABG pCO2 POC ABG pO2 ABG pO2 ABG HCO3 ABG O2 Saturation ABG Base Excess ABG Hemoglobin ABG Oxyhemoglobin ABG Sodium ABG Potassium ABG Chloride ABG Glucose Oxyhemoglobin Carboxyhemoglobin Sodium Potassium Chloride Carbon Dioxide BUN Creatinine Glucose POC Glucose 177 H 243 H Hemoglobin A1c Lactic Acid Calcium Magnesium Ferritin 778.8 H Total Bilirubin AST ALT Alkaline Phosphatase Lactate Dehydrogenase Total Creatine Kinase C-Reactive Protein Total Protein Albumin Triglycerides Arterial Blood Glucose Arterial Blood Ionized Calcium Ur Specific [place] Urine WBC (Auto) Vancomycin Trough Coronavirus (PCR) 11/26/20 11/26/20 11/26/20 04:00 05:34 06:04 WBC RBC Hgb Hct MCHC RDW Plt Count Lymph % (Auto) [place] % (Auto) Lymph # (Auto) [place] # (Auto) Baso # (Auto) Seg Neutrophils % Seg Neuts % (Manual) Lymphocytes % (Manual) Nucleated RBC % Seg Neutrophils # Seg Neutrophils # Man Lymphocytes # (Manual) D-Dimer 926.11 H ABG pH POC ABG pCO2 POC ABG pO2 ABG pO2 ABG HCO3 ABG O2 Saturation ABG Base Excess ABG Hemoglobin ABG Oxyhemoglobin ABG Sodium ABG Potassium ABG Chloride ABG Glucose Oxyhemoglobin Carboxyhemoglobin Sodium Potassium Chloride Carbon Dioxide 39 H D BUN 30 H Creatinine 0.5 L Glucose 193 H POC Glucose 178 H Hemoglobin A1c Lactic Acid Calcium 7.7 L Magnesium Ferritin Total Bilirubin AST 65 H ALT 132 H Alkaline Phosphatase Lactate Dehydrogenase 288 H Total Creatine Kinase C-Reactive Protein 1.40 H Total Protein 5.7 L Albumin 2.4 L Triglycerides Arterial Blood Glucose Arterial Blood Ionized Calcium Ur Specific [place] Urine WBC (Auto) Vancomycin Trough Coronavirus (PCR) 11/26/20 11/26/20 11/26/20 06:04 08:47 11:20 WBC 12.4 H RBC Hgb Hct MCHC RDW Plt Count Lymph % (Auto) [place] % (Auto) Lymph # (Auto) [place] # (Auto) Baso # (Auto) Seg Neutrophils % Seg Neuts % (Manual) 98.0 H Lymphocytes % (Manual) 1.0 L Nucleated RBC % Seg Neutrophils # Seg Neutrophils # Man 12.2 H Lymphocytes # (Manual) 0.1 L D-Dimer ABG pH POC ABG pCO2 75.2 H POC ABG pO2 61.9 L ABG pO2 ABG HCO3 ABG O2 Saturation ABG Base Excess ABG Hemoglobin ABG Oxyhemoglobin 90.3 L ABG Sodium ABG Potassium ABG Chloride ABG Glucose 243 H Oxyhemoglobin Carboxyhemoglobin Sodium Potassium Chloride Carbon Dioxide BUN Creatinine Glucose POC Glucose 255 H Hemoglobin A1c Lactic Acid Calcium Magnesium Ferritin Total Bilirubin AST ALT Alkaline Phosphatase Lactate Dehydrogenase Total Creatine Kinase C-Reactive Protein Total Protein Albumin Triglycerides Arterial Blood Glucose 243 H Arterial Blood Ionized Calcium Ur Specific [place] Urine WBC (Auto) Vancomycin Trough Coronavirus (PCR) 11/26/20 11/26/20 11/26/20 16:20 17:15 23:41 WBC RBC Hgb Hct MCHC RDW Plt Count Lymph % (Auto) [place] % (Auto) Lymph # (Auto) [place] # (Auto) Baso # (Auto) Seg Neutrophils % Seg Neuts % (Manual) Lymphocytes % (Manual) Nucleated RBC % Seg Neutrophils # Seg Neutrophils # Man Lymphocytes # (Manual) D-Dimer ABG pH POC ABG pCO2 66.6 H POC ABG pO2 78.1 L ABG pO2 ABG HCO3 ABG O2 Saturation ABG Base Excess ABG Hemoglobin ABG Oxyhemoglobin ABG Sodium ABG Potassium ABG Chloride ABG Glucose 244 H Oxyhemoglobin Carboxyhemoglobin Sodium Potassium Chloride Carbon Dioxide BUN Creatinine Glucose POC Glucose 219 H 210 H Hemoglobin A1c Lactic Acid Calcium Magnesium Ferritin Total Bilirubin AST ALT Alkaline Phosphatase Lactate Dehydrogenase Total Creatine Kinase C-Reactive Protein Total Protein Albumin Triglycerides Arterial Blood Glucose 244 H Arterial Blood Ionized Calcium Ur Specific [place] Urine WBC (Auto) Vancomycin Trough Coronavirus (PCR) 11/27/20 11/27/20 11/27/20 04:46 05:38 06:25 WBC 13.8 H RBC Hgb Hct MCHC RDW Plt Count Lymph % (Auto) 2.0 L [place] % (Auto) Lymph # (Auto) 0.3 L [place] # (Auto) Baso # (Auto) Seg Neutrophils % Seg Neuts % (Manual) 96.0 H Lymphocytes % (Manual) Nucleated RBC % Seg Neutrophils # 12.7 H Seg Neutrophils # Man 13.2 H Lymphocytes # (Manual) 0.0 L D-Dimer ABG pH POC ABG pCO2 63.0 H POC ABG pO2 53.6 L ABG pO2 ABG HCO3 ABG O2 Saturation ABG Base Excess ABG Hemoglobin ABG Oxyhemoglobin 87.8 L ABG Sodium 115.4 L ABG Potassium ABG Chloride ABG Glucose 219 H Oxyhemoglobin Carboxyhemoglobin Sodium Potassium Chloride Carbon Dioxide BUN Creatinine Glucose POC Glucose 227 H Hemoglobin A1c Lactic Acid Calcium Magnesium Ferritin Total Bilirubin AST ALT Alkaline Phosphatase Lactate Dehydrogenase Total Creatine Kinase C-Reactive Protein Total Protein Albumin Triglycerides Arterial Blood Glucose 219 H Arterial Blood Ionized Calcium Ur Specific [place] Urine WBC (Auto) Vancomycin Trough Coronavirus (PCR) 11/27/20 11/27/20 11/27/20 06:25 18:05 23:29 WBC RBC Hgb Hct MCHC RDW Plt Count Lymph % (Auto) [place] % (Auto) Lymph # (Auto) [place] # (Auto) Baso # (Auto) Seg Neutrophils % Seg Neuts % (Manual) Lymphocytes % (Manual) Nucleated RBC % Seg Neutrophils # Seg Neutrophils # Man Lymphocytes # (Manual) D-Dimer ABG pH POC ABG pCO2 POC ABG pO2 ABG pO2 ABG HCO3 ABG O2 Saturation ABG Base Excess ABG Hemoglobin ABG Oxyhemoglobin ABG Sodium ABG Potassium ABG Chloride ABG Glucose Oxyhemoglobin Carboxyhemoglobin Sodium Potassium Chloride Carbon Dioxide 38 H BUN 34 H Creatinine 0.4 L Glucose 243 H POC Glucose 329 H 227 H Hemoglobin A1c Lactic Acid Calcium 7.9 L Magnesium Ferritin Total Bilirubin AST 50 H ALT 110 H Alkaline Phosphatase Lactate Dehydrogenase Total Creatine Kinase C-Reactive Protein Total Protein 6.1 L Albumin 2.4 L Triglycerides Arterial Blood Glucose Arterial Blood Ionized Calcium Ur Specific [place] Urine WBC (Auto) Vancomycin Trough Coronavirus (PCR) 11/28/20 11/28/20 11/28/20 03:45 03:45 03:46 WBC 12.2 H RBC Hgb Hct MCHC RDW Plt Count Lymph % (Auto) [place] % (Auto) Lymph # (Auto) [place] # (Auto) Baso # (Auto) Seg Neutrophils % Seg Neuts % (Manual) 93.0 H Lymphocytes % (Manual) 2.0 L Nucleated RBC % Seg Neutrophils # Seg Neutrophils # Man 11.3 H Lymphocytes # (Manual) 0.2 L D-Dimer ABG pH POC ABG pCO2 68.4 H POC ABG pO2 55.4 L ABG pO2 ABG HCO3 ABG O2 Saturation ABG Base Excess ABG Hemoglobin ABG Oxyhemoglobin ABG Sodium ABG Potassium ABG Chloride ABG Glucose 197 H Oxyhemoglobin Carboxyhemoglobin Sodium Potassium Chloride Carbon Dioxide 36 H BUN 37 H Creatinine 0.4 L Glucose 194 H POC Glucose Hemoglobin A1c Lactic Acid Calcium 8.1 L Magnesium Ferritin Total Bilirubin AST ALT 86 H Alkaline Phosphatase Lactate Dehydrogenase Total Creatine Kinase C-Reactive Protein Total Protein 6.0 L Albumin 2.3 L Triglycerides Arterial Blood Glucose 197 H Arterial Blood Ionized Calcium Ur Specific [place] Urine WBC (Auto) Vancomycin Trough Coronavirus (PCR) 11/28/20 11/28/20 11/29/20 05:24 12:21 04:41 WBC RBC Hgb Hct MCHC RDW Plt Count Lymph % (Auto) [place] % (Auto) Lymph # (Auto) [place] # (Auto) Baso # (Auto) Seg Neutrophils % Seg Neuts % (Manual) Lymphocytes % (Manual) Nucleated RBC % Seg Neutrophils # Seg Neutrophils # Man Lymphocytes # (Manual) D-Dimer ABG pH POC ABG pCO2 55.1 H POC ABG pO2 53.6 L ABG pO2 ABG HCO3 ABG O2 Saturation ABG Base Excess ABG Hemoglobin ABG Oxyhemoglobin 87.1 L ABG Sodium 131.2 L ABG Potassium ABG Chloride ABG Glucose 164 H Oxyhemoglobin Carboxyhemoglobin Sodium Potassium Chloride Carbon Dioxide BUN Creatinine Glucose POC Glucose 173 H 126 H Hemoglobin A1c Lactic Acid Calcium Magnesium Ferritin Total Bilirubin AST ALT Alkaline Phosphatase Lactate Dehydrogenase Total Creatine Kinase C-Reactive Protein Total Protein Albumin Triglycerides Arterial Blood Glucose 164 H Arterial Blood Ionized Calcium 4.4 L Ur Specific [place] Urine WBC (Auto) Vancomycin Trough Coronavirus (PCR) 11/29/20 11/29/20 11/29/20 05:29 12:41 13:28 WBC RBC Hgb Hct MCHC RDW Plt Count Lymph % (Auto) [place] % (Auto) Lymph # (Auto) [place] # (Auto) Baso # (Auto) Seg Neutrophils % Seg Neuts % (Manual) Lymphocytes % (Manual) Nucleated RBC % Seg Neutrophils # Seg Neutrophils # Man Lymphocytes # (Manual) D-Dimer ABG pH POC ABG pCO2 POC ABG pO2 ABG pO2 ABG HCO3 ABG O2 Saturation ABG Base Excess ABG Hemoglobin ABG Oxyhemoglobin ABG Sodium ABG Potassium ABG Chloride ABG Glucose Oxyhemoglobin Carboxyhemoglobin Sodium Potassium Chloride Carbon Dioxide 40 H BUN 32 H Creatinine 0.4 L Glucose 274 H POC Glucose 173 H 257 H Hemoglobin A1c Lactic Acid Calcium 7.2 L Magnesium Ferritin Total Bilirubin AST 57 H ALT 102 H Alkaline Phosphatase Lactate Dehydrogenase Total Creatine Kinase C-Reactive Protein Total Protein 5.7 L Albumin 2.1 L Triglycerides Arterial Blood Glucose Arterial Blood Ionized Calcium Ur Specific [place] Urine WBC (Auto) Vancomycin Trough Coronavirus (PCR) 11/29/20 11/29/20 11/29/20 15:40 17:36 21:26 WBC RBC Hgb Hct MCHC RDW Plt Count Lymph % (Auto) [place] % (Auto) Lymph # (Auto) [place] # (Auto) Baso # (Auto) Seg Neutrophils % Seg Neuts % (Manual) Lymphocytes % (Manual) Nucleated RBC % Seg Neutrophils # Seg Neutrophils # Man Lymphocytes # (Manual) D-Dimer ABG pH POC ABG pCO2 POC ABG pO2 ABG pO2 ABG HCO3 ABG O2 Saturation ABG Base Excess ABG Hemoglobin ABG Oxyhemoglobin ABG Sodium ABG Potassium ABG Chloride ABG Glucose Oxyhemoglobin Carboxyhemoglobin Sodium Potassium Chloride Carbon Dioxide BUN Creatinine Glucose POC Glucose 240 H 244 H Hemoglobin A1c Lactic Acid Calcium Magnesium Ferritin Total Bilirubin AST ALT Alkaline Phosphatase Lactate Dehydrogenase Total Creatine Kinase C-Reactive Protein Total Protein Albumin Triglycerides Arterial Blood Glucose Arterial Blood Ionized Calcium Ur Specific [place] Urine WBC (Auto) Vancomycin Trough 4.0 L Coronavirus (PCR) 11/29/20 11/30/20 11/30/20 23:26 03:30 03:30 WBC RBC Hgb Hct MCHC RDW Plt Count Lymph % (Auto) [place] % (Auto) Lymph # (Auto) [place] # (Auto) Baso # (Auto) Seg Neutrophils % Seg Neuts % (Manual) 97.0 H Lymphocytes % (Manual) 1.0 L Nucleated RBC % Seg Neutrophils # Seg Neutrophils # Man 9.9 H Lymphocytes # (Manual) 0.1 L D-Dimer ABG pH POC ABG pCO2 POC ABG pO2 ABG pO2 ABG HCO3 ABG O2 Saturation ABG Base Excess ABG Hemoglobin ABG Oxyhemoglobin ABG Sodium ABG Potassium ABG Chloride ABG Glucose Oxyhemoglobin Carboxyhemoglobin Sodium Potassium Chloride Carbon Dioxide 38 H BUN 34 H Creatinine 0.4 L Glucose 305 H POC Glucose 283 H Hemoglobin A1c Lactic Acid Calcium 7.6 L Magnesium Ferritin Total Bilirubin AST ALT 89 H Alkaline Phosphatase Lactate Dehydrogenase Total Creatine Kinase C-Reactive Protein Total Protein 6.0 L Albumin 2.3 L Triglycerides Arterial Blood Glucose Arterial Blood Ionized Calcium Ur Specific [place] Urine WBC (Auto) Vancomycin Trough Coronavirus (PCR) 11/30/20 11/30/20 11/30/20 03:57 05:22 12:05 WBC RBC Hgb Hct MCHC RDW Plt Count Lymph % (Auto) [place] % (Auto) Lymph # (Auto) [place] # (Auto) Baso # (Auto) Seg Neutrophils % Seg Neuts % (Manual) Lymphocytes % (Manual) Nucleated RBC % Seg Neutrophils # Seg Neutrophils # Man Lymphocytes # (Manual) D-Dimer ABG pH POC ABG pCO2 60.8 H POC ABG pO2 51.1 L ABG pO2 ABG HCO3 ABG O2 Saturation ABG Base Excess ABG Hemoglobin ABG Oxyhemoglobin 84.6 L ABG Sodium ABG Potassium ABG Chloride ABG Glucose 315 H Oxyhemoglobin Carboxyhemoglobin Sodium Potassium Chloride Carbon Dioxide BUN Creatinine Glucose POC Glucose 295 H 413 H Hemoglobin A1c Lactic Acid Calcium Magnesium Ferritin Total Bilirubin AST ALT Alkaline Phosphatase Lactate Dehydrogenase Total Creatine Kinase C-Reactive Protein Total Protein Albumin Triglycerides Arterial Blood Glucose 315 H Arterial Blood Ionized Calcium 4.5 L Ur Specific [place] Urine WBC (Auto) Vancomycin Trough Coronavirus (PCR) 11/30/20 11/30/20 12/01/20 17:24 23:25 02:14 WBC RBC Hgb Hct MCHC RDW Plt Count Lymph % (Auto) [place] % (Auto) Lymph # (Auto) [place] # (Auto) Baso # (Auto) Seg Neutrophils % Seg Neuts % (Manual) Lymphocytes % (Manual) Nucleated RBC % Seg Neutrophils # Seg Neutrophils # Man Lymphocytes # (Manual) D-Dimer ABG pH 7.278 L POC ABG pCO2 78.1 H POC ABG pO2 79.5 L ABG pO2 ABG HCO3 ABG O2 Saturation ABG Base Excess ABG Hemoglobin 11.6 L ABG Oxyhemoglobin ABG Sodium 134.5 L ABG Potassium 4.6 H ABG Chloride ABG Glucose 286 H Oxyhemoglobin Carboxyhemoglobin Sodium Potassium Chloride Carbon Dioxide BUN Creatinine Glucose POC Glucose 305 H 302 H Hemoglobin A1c Lactic Acid Calcium Magnesium Ferritin Total Bilirubin AST ALT Alkaline Phosphatase Lactate Dehydrogenase Total Creatine Kinase C-Reactive Protein Total Protein Albumin Triglycerides Arterial Blood Glucose 286 H Arterial Blood Ionized Calcium Ur Specific [place] Urine WBC (Auto) Vancomycin Trough Coronavirus (PCR) 12/01/20 12/01/20 12/01/20 03:35 03:35 05:22 WBC 13.4 H RBC 3.54 L Hgb 10.4 L Hct 31.8 L MCHC RDW Plt Count Lymph % (Auto) [place] % (Auto) Lymph # (Auto) [place] # (Auto) Baso # (Auto) Seg Neutrophils % Seg Neuts % (Manual) 95.0 H Lymphocytes % (Manual) 3.0 L Nucleated RBC % Seg Neutrophils # Seg Neutrophils # Man 12.7 H Lymphocytes # (Manual) 0.4 L D-Dimer ABG pH POC ABG pCO2 POC ABG pO2 ABG pO2 ABG HCO3 ABG O2 Saturation ABG Base Excess ABG Hemoglobin ABG Oxyhemoglobin ABG Sodium ABG Potassium ABG Chloride ABG Glucose Oxyhemoglobin Carboxyhemoglobin Sodium Potassium Chloride Carbon Dioxide 35 H BUN 34 H Creatinine 0.5 L Glucose 279 H POC Glucose 259 H Hemoglobin A1c Lactic Acid Calcium 7.6 L Magnesium Ferritin Total Bilirubin AST ALT 63 H Alkaline Phosphatase Lactate Dehydrogenase Total Creatine Kinase C-Reactive Protein Total Protein 4.8 L Albumin 2.1 L Triglycerides Arterial Blood Glucose Arterial Blood Ionized Calcium Ur Specific [place] Urine WBC (Auto) Vancomycin Trough Coronavirus (PCR) 12/01/20 12/01/20 12/01/20 12:05 17:40 23:46 WBC RBC Hgb Hct MCHC RDW Plt Count Lymph % (Auto) [place] % (Auto) Lymph # (Auto) [place] # (Auto) Baso # (Auto) Seg Neutrophils % Seg Neuts % (Manual) Lymphocytes % (Manual) Nucleated RBC % Seg Neutrophils # Seg Neutrophils # Man Lymphocytes # (Manual) D-Dimer ABG pH POC ABG pCO2 POC ABG pO2 ABG pO2 ABG HCO3 ABG O2 Saturation ABG Base Excess ABG Hemoglobin ABG Oxyhemoglobin ABG Sodium ABG Potassium ABG Chloride ABG Glucose Oxyhemoglobin Carboxyhemoglobin Sodium Potassium Chloride Carbon Dioxide BUN Creatinine Glucose POC Glucose 197 H 244 H 284 H Hemoglobin A1c Lactic Acid Calcium Magnesium Ferritin Total Bilirubin AST ALT Alkaline Phosphatase Lactate Dehydrogenase Total Creatine Kinase C-Reactive Protein Total Protein Albumin Triglycerides Arterial Blood Glucose Arterial Blood Ionized Calcium Ur Specific [place] Urine WBC (Auto) Vancomycin Trough Coronavirus (PCR) 12/02/20 12/02/20 12/02/20 02:14 03:03 04:11 WBC 16.5 H RBC 3.55 L Hgb 10.5 L Hct 31.9 L MCHC RDW Plt Count Lymph % (Auto) [place] % (Auto) Lymph # (Auto) [place] # (Auto) Baso # (Auto) Seg Neutrophils % Seg Neuts % (Manual) 90.0 H Lymphocytes % (Manual) 3.0 L Nucleated RBC % Seg Neutrophils # Seg Neutrophils # Man 14.9 H Lymphocytes # (Manual) 0.5 L D-Dimer ABG pH POC ABG pCO2 74.8 H POC ABG pO2 58.9 L ABG pO2 ABG HCO3 ABG O2 Saturation ABG Base Excess ABG Hemoglobin 11.5 L ABG Oxyhemoglobin ABG Sodium ABG Potassium ABG Chloride ABG Glucose 264 H Oxyhemoglobin Carboxyhemoglobin Sodium Potassium Chloride Carbon Dioxide 37 H BUN 30 H Creatinine 0.4 L Glucose 245 H POC Glucose Hemoglobin A1c Lactic Acid Calcium 7.5 L Magnesium Ferritin Total Bilirubin AST ALT Alkaline Phosphatase Lactate Dehydrogenase Total Creatine Kinase C-Reactive Protein Total Protein 5.2 L Albumin 2.2 L Triglycerides Arterial Blood Glucose 264 H Arterial Blood Ionized Calcium 4.5 L Ur Specific [place] Urine WBC (Auto) Vancomycin Trough Coronavirus (PCR) 12/02/20 12/02/20 12/02/20 05:19 11:46 17:52 WBC RBC Hgb Hct MCHC RDW Plt Count Lymph % (Auto) [place] % (Auto) Lymph # (Auto) [place] # (Auto) Baso # (Auto) Seg Neutrophils % Seg Neuts % (Manual) Lymphocytes % (Manual) Nucleated RBC % Seg Neutrophils # Seg Neutrophils # Man Lymphocytes # (Manual) D-Dimer ABG pH POC ABG pCO2 POC ABG pO2 ABG pO2 ABG HCO3 ABG O2 Saturation ABG Base Excess ABG Hemoglobin ABG Oxyhemoglobin ABG Sodium ABG Potassium ABG Chloride ABG Glucose Oxyhemoglobin Carboxyhemoglobin Sodium Potassium Chloride Carbon Dioxide BUN Creatinine Glucose POC Glucose 238 H 236 H 233 H Hemoglobin A1c Lactic Acid Calcium Magnesium Ferritin Total Bilirubin AST ALT Alkaline Phosphatase Lactate Dehydrogenase Total Creatine Kinase C-Reactive Protein Total Protein Albumin Triglycerides Arterial Blood Glucose Arterial Blood Ionized Calcium Ur Specific [place] Urine WBC (Auto) Vancomycin Trough Coronavirus (PCR) 12/02/20 12/03/20 12/03/20 23:23 03:21 04:35 WBC RBC Hgb Hct MCHC RDW Plt Count 112 L Lymph % (Auto) [place] % (Auto) Lymph # (Auto) [place] # (Auto) Baso # (Auto) Seg Neutrophils % Seg Neuts % (Manual) 93.0 H Lymphocytes % (Manual) 4.0 L Nucleated RBC % Seg Neutrophils # Seg Neutrophils # Man 9.1 H Lymphocytes # (Manual) 0.4 L D-Dimer ABG pH 7.299 L POC ABG pCO2 82.1 H POC ABG pO2 62.4 L ABG pO2 ABG HCO3 ABG O2 Saturation ABG Base Excess ABG Hemoglobin 11.5 L ABG Oxyhemoglobin 89.6 L ABG Sodium 134.3 L ABG Potassium ABG Chloride 95.0 L ABG Glucose 203 H Oxyhemoglobin Carboxyhemoglobin Sodium Potassium Chloride Carbon Dioxide BUN Creatinine Glucose POC Glucose 213 H Hemoglobin A1c Lactic Acid Calcium Magnesium Ferritin Total Bilirubin AST ALT Alkaline Phosphatase Lactate Dehydrogenase Total Creatine Kinase C-Reactive Protein Total Protein Albumin Triglycerides Arterial Blood Glucose 203 H Arterial Blood Ionized Calcium 4.5 L Ur Specific [place] Urine WBC (Auto) Vancomycin Trough Coronavirus (PCR) 12/03/20 12/03/20 12/03/20 04:35 05:42 11:28 WBC RBC Hgb Hct MCHC RDW Plt Count Lymph % (Auto) [place] % (Auto) Lymph # (Auto) [place] # (Auto) Baso # (Auto) Seg Neutrophils % Seg Neuts % (Manual) Lymphocytes % (Manual) Nucleated RBC % Seg Neutrophils # Seg Neutrophils # Man Lymphocytes # (Manual) D-Dimer ABG pH POC ABG pCO2 POC ABG pO2 ABG pO2 ABG HCO3 ABG O2 Saturation ABG Base Excess ABG Hemoglobin ABG Oxyhemoglobin ABG Sodium ABG Potassium ABG Chloride ABG Glucose Oxyhemoglobin Carboxyhemoglobin Sodium Potassium Chloride 97.8 L Carbon Dioxide 43 H* BUN 25 H Creatinine 0.3 L Glucose 214 H POC Glucose 193 H 211 H Hemoglobin A1c Lactic Acid Calcium 7.7 L Magnesium Ferritin Total Bilirubin AST ALT 63 H Alkaline Phosphatase 132 H Lactate Dehydrogenase Total Creatine Kinase C-Reactive Protein Total Protein 5.1 L Albumin 2.4 L Triglycerides Arterial Blood Glucose Arterial Blood Ionized Calcium Ur Specific [place] Urine WBC (Auto) Vancomycin Trough Coronavirus (PCR) 12/03/20 12/03/20 12/04/20 17:45 23:57 00:11 WBC RBC Hgb Hct MCHC RDW Plt Count Lymph % (Auto) [place] % (Auto) Lymph # (Auto) [place] # (Auto) Baso # (Auto) Seg Neutrophils % Seg Neuts % (Manual) Lymphocytes % (Manual) Nucleated RBC % Seg Neutrophils # Seg Neutrophils # Man Lymphocytes # (Manual) D-Dimer ABG pH POC ABG pCO2 POC ABG pO2 ABG pO2 ABG HCO3 ABG O2 Saturation ABG Base Excess ABG Hemoglobin ABG Oxyhemoglobin ABG Sodium ABG Potassium ABG Chloride ABG Glucose Oxyhemoglobin Carboxyhemoglobin Sodium Potassium Chloride Carbon Dioxide BUN Creatinine Glucose POC Glucose 231 H 240 H 239 H Hemoglobin A1c Lactic Acid Calcium Magnesium Ferritin Total Bilirubin AST ALT Alkaline Phosphatase Lactate Dehydrogenase Total Creatine Kinase C-Reactive Protein Total Protein Albumin Triglycerides Arterial Blood Glucose Arterial Blood Ionized Calcium Ur Specific [place] Urine WBC (Auto) Vancomycin Trough Coronavirus (PCR) 12/04/20 12/04/20 12/04/20 04:00 05:20 05:34 WBC RBC Hgb Hct MCHC RDW Plt Count Lymph % (Auto) [place] % (Auto) Lymph # (Auto) [place] # (Auto) Baso # (Auto) Seg Neutrophils % Seg Neuts % (Manual) Lymphocytes % (Manual) Nucleated RBC % Seg Neutrophils # Seg Neutrophils # Man Lymphocytes # (Manual) D-Dimer ABG pH POC ABG pCO2 84.4 H POC ABG pO2 68.0 L ABG pO2 ABG HCO3 ABG O2 Saturation ABG Base Excess ABG Hemoglobin 11.6 L ABG Oxyhemoglobin ABG Sodium 130.9 L ABG Potassium ABG Chloride 90.0 L ABG Glucose 244 H Oxyhemoglobin Carboxyhemoglobin Sodium Potassium Chloride Carbon Dioxide BUN Creatinine Glucose POC Glucose 241 H 213 H Hemoglobin A1c Lactic Acid Calcium Magnesium Ferritin Total Bilirubin AST ALT Alkaline Phosphatase Lactate Dehydrogenase Total Creatine Kinase C-Reactive Protein Total Protein Albumin Triglycerides Arterial Blood Glucose 244 H Arterial Blood Ionized Calcium 4.4 L Ur Specific [place] Urine WBC (Auto) Vancomycin Trough Coronavirus (PCR) 12/04/20 12/04/20 12/04/20 11:36 16:53 23:32 WBC RBC Hgb Hct MCHC RDW Plt Count Lymph % (Auto) [place] % (Auto) Lymph # (Auto) [place] # (Auto) Baso # (Auto) Seg Neutrophils % Seg Neuts % (Manual) Lymphocytes % (Manual) Nucleated RBC % Seg Neutrophils # Seg Neutrophils # Man Lymphocytes # (Manual) D-Dimer ABG pH POC ABG pCO2 POC ABG pO2 ABG pO2 ABG HCO3 ABG O2 Saturation ABG Base Excess ABG Hemoglobin ABG Oxyhemoglobin ABG Sodium ABG Potassium ABG Chloride ABG Glucose Oxyhemoglobin Carboxyhemoglobin Sodium Potassium Chloride Carbon Dioxide BUN Creatinine Glucose POC Glucose 196 H 127 H 230 H Hemoglobin A1c Lactic Acid Calcium Magnesium Ferritin Total Bilirubin AST ALT Alkaline Phosphatase Lactate Dehydrogenase Total Creatine Kinase C-Reactive Protein Total Protein Albumin Triglycerides Arterial Blood Glucose Arterial Blood Ionized Calcium Ur Specific [place] Urine WBC (Auto) Vancomycin Trough Coronavirus (PCR) 12/04/20 12/05/20 12/05/20 Unknown 04:16 05:21 WBC RBC Hgb Hct MCHC RDW Plt Count Lymph % (Auto) [place] % (Auto) Lymph # (Auto) [place] # (Auto) Baso # (Auto) Seg Neutrophils % Seg Neuts % (Manual) Lymphocytes % (Manual) Nucleated RBC % Seg Neutrophils # Seg Neutrophils # Man Lymphocytes # (Manual) D-Dimer ABG pH POC ABG pCO2 86.7 H POC ABG pO2 58.0 L ABG pO2 ABG HCO3 ABG O2 Saturation ABG Base Excess ABG Hemoglobin 11.6 L ABG Oxyhemoglobin 89 L ABG Sodium 130.1 L ABG Potassium 4.9 H ABG Chloride 89.0 L ABG Glucose 254 H Oxyhemoglobin Carboxyhemoglobin Sodium 136 L Potassium Chloride 90.0 L Carbon Dioxide 46 H* BUN 24 H Creatinine 0.3 L Glucose 226 H POC Glucose 213 H Hemoglobin A1c Lactic Acid Calcium 7.6 L Magnesium Ferritin Total Bilirubin AST 46 H ALT 78 H Alkaline Phosphatase 172 H Lactate Dehydrogenase Total Creatine Kinase C-Reactive Protein Total Protein 6.0 L Albumin 2.8 L Triglycerides 156 H Arterial Blood Glucose 254 H Arterial Blood Ionized Calcium 4.4 L Ur Specific [place] Urine WBC (Auto) Vancomycin Trough Coronavirus (PCR) 12/05/20 12/05/20 12/05/20 11:22 17:26 23:38 WBC RBC Hgb Hct MCHC RDW Plt Count Lymph % (Auto) [place] % (Auto) Lymph # (Auto) [place] # (Auto) Baso # (Auto) Seg Neutrophils % Seg Neuts % (Manual) Lymphocytes % (Manual) Nucleated RBC % Seg Neutrophils # Seg Neutrophils # Man Lymphocytes # (Manual) D-Dimer ABG pH POC ABG pCO2 POC ABG pO2 ABG pO2 ABG HCO3 ABG O2 Saturation ABG Base Excess ABG Hemoglobin ABG Oxyhemoglobin ABG Sodium ABG Potassium ABG Chloride ABG Glucose Oxyhemoglobin Carboxyhemoglobin Sodium Potassium Chloride Carbon Dioxide BUN Creatinine Glucose POC Glucose 212 H 157 H 204 H Hemoglobin A1c Lactic Acid Calcium Magnesium Ferritin Total Bilirubin AST ALT Alkaline Phosphatase Lactate Dehydrogenase Total Creatine Kinase C-Reactive Protein Total Protein Albumin Triglycerides Arterial Blood Glucose Arterial Blood Ionized Calcium Ur Specific [place] Urine WBC (Auto) Vancomycin Trough Coronavirus (PCR) 12/06/20 12/06/20 12/06/20 04:31 04:31 05:12 WBC 17.0 H RBC 3.63 L Hgb 10.8 L D Hct 32.6 L D MCHC RDW Plt Count Lymph % (Auto) [place] % (Auto) Lymph # (Auto) [place] # (Auto) Baso # (Auto) Seg Neutrophils % Seg Neuts % (Manual) Lymphocytes % (Manual) Nucleated RBC % Seg Neutrophils # Seg Neutrophils # Man Lymphocytes # (Manual) D-Dimer ABG pH POC ABG pCO2 85.9 H POC ABG pO2 57.6 L ABG pO2 ABG HCO3 ABG O2 Saturation ABG Base Excess ABG Hemoglobin ABG Oxyhemoglobin ABG Sodium 131.2 L ABG Potassium 4.8 H ABG Chloride 86.0 L ABG Glucose 200 H Oxyhemoglobin Carboxyhemoglobin Sodium 134 L Potassium 5.1 H Chloride 88.4 L Carbon Dioxide 47 H* BUN 23 H Creatinine 0.3 L Glucose 206 H POC Glucose Hemoglobin A1c Lactic Acid Calcium 8.3 L Magnesium Ferritin Total Bilirubin AST 48 H ALT 91 H Alkaline Phosphatase 140 H Lactate Dehydrogenase Total Creatine Kinase C-Reactive Protein Total Protein 5.7 L Albumin 2.6 L Triglycerides Arterial Blood Glucose 200 H Arterial Blood Ionized Calcium 4.4 L Ur Specific [place] Urine WBC (Auto) Vancomycin Trough Coronavirus (PCR) 12/06/20 12/06/20 12/06/20 05:24 12:18 16:45 WBC RBC Hgb Hct MCHC RDW Plt Count Lymph % (Auto) [place] % (Auto) Lymph # (Auto) [place] # (Auto) Baso # (Auto) Seg Neutrophils % Seg Neuts % (Manual) Lymphocytes % (Manual) Nucleated RBC % Seg Neutrophils # Seg Neutrophils # Man Lymphocytes # (Manual) D-Dimer ABG pH POC ABG pCO2 POC ABG pO2 ABG pO2 ABG HCO3 ABG O2 Saturation ABG Base Excess ABG Hemoglobin ABG Oxyhemoglobin ABG Sodium ABG Potassium ABG Chloride ABG Glucose Oxyhemoglobin Carboxyhemoglobin Sodium Potassium Chloride Carbon Dioxide BUN Creatinine Glucose POC Glucose 186 H 187 H 150 H Hemoglobin A1c Lactic Acid Calcium Magnesium Ferritin Total Bilirubin AST ALT Alkaline Phosphatase Lactate Dehydrogenase Total Creatine Kinase C-Reactive Protein Total Protein Albumin Triglycerides Arterial Blood Glucose Arterial Blood Ionized Calcium Ur Specific [place] Urine WBC (Auto) Vancomycin Trough Coronavirus (PCR) 12/06/20 12/07/20 12/07/20 23:43 05:20 05:21 WBC RBC Hgb Hct MCHC RDW Plt Count Lymph % (Auto) [place] % (Auto) Lymph # (Auto) [place] # (Auto) Baso # (Auto) Seg Neutrophils % Seg Neuts % (Manual) Lymphocytes % (Manual) Nucleated RBC % Seg Neutrophils # Seg Neutrophils # Man Lymphocytes # (Manual) D-Dimer ABG pH POC ABG pCO2 POC ABG pO2 ABG pO2 48.4 L ABG HCO3 50.8 H ABG O2 Saturation 86.2 L ABG Base Excess 22.4 H ABG Hemoglobin 11.0 L ABG Oxyhemoglobin ABG Sodium ABG Potassium ABG Chloride ABG Glucose Oxyhemoglobin 84.0 L Carboxyhemoglobin Sodium Potassium Chloride Carbon Dioxide BUN Creatinine Glucose POC Glucose 153 H 107 H Hemoglobin A1c Lactic Acid Calcium Magnesium Ferritin Total Bilirubin AST ALT Alkaline Phosphatase Lactate Dehydrogenase Total Creatine Kinase C-Reactive Protein Total Protein Albumin Triglycerides Arterial Blood Glucose Arterial Blood Ionized Calcium Ur Specific [place] Urine WBC (Auto) Vancomycin Trough Coronavirus (PCR) 12/07/20 12/07/20 12/07/20 13:20 14:28 17:35 WBC RBC Hgb Hct MCHC RDW Plt Count Lymph % (Auto) [place] % (Auto) Lymph # (Auto) [place] # (Auto) Baso # (Auto) Seg Neutrophils % Seg Neuts % (Manual) Lymphocytes % (Manual) Nucleated RBC % Seg Neutrophils # Seg Neutrophils # Man Lymphocytes # (Manual) D-Dimer ABG pH POC ABG pCO2 74.1 H POC ABG pO2 68.5 L ABG pO2 ABG HCO3 ABG O2 Saturation ABG Base Excess ABG Hemoglobin 10.7 L ABG Oxyhemoglobin 91.9 L ABG Sodium 132.2 L ABG Potassium 4.7 H ABG Chloride 88.0 L ABG Glucose 138 H Oxyhemoglobin Carboxyhemoglobin Sodium 134 L Potassium Chloride 87.4 L Carbon Dioxide 49 H* BUN Creatinine 0.2 L Glucose 132 H POC Glucose 176 H Hemoglobin A1c Lactic Acid Calcium 7.7 L Magnesium Ferritin Total Bilirubin AST ALT Alkaline Phosphatase Lactate Dehydrogenase Total Creatine Kinase C-Reactive Protein Total Protein Albumin Triglycerides Arterial Blood Glucose 138 H Arterial Blood Ionized Calcium 4.0 L Ur Specific [place] Urine WBC (Auto) Vancomycin Trough Coronavirus (PCR) 12/07/20 12/08/20 12/08/20 23:44 04:12 05:29 WBC RBC Hgb Hct MCHC RDW Plt Count Lymph % (Auto) [place] % (Auto) Lymph # (Auto) [place] # (Auto) Baso # (Auto) Seg Neutrophils % Seg Neuts % (Manual) Lymphocytes % (Manual) Nucleated RBC % Seg Neutrophils # Seg Neutrophils # Man Lymphocytes # (Manual) D-Dimer ABG pH POC ABG pCO2 POC ABG pO2 ABG pO2 69.7 L ABG HCO3 50.1 H ABG O2 Saturation ABG Base Excess 21.6 H ABG Hemoglobin 10.9 L ABG Oxyhemoglobin ABG Sodium ABG Potassium ABG Chloride ABG Glucose Oxyhemoglobin 93.2 L Carboxyhemoglobin Sodium Potassium Chloride Carbon Dioxide BUN Creatinine Glucose POC Glucose 143 H 143 H Hemoglobin A1c Lactic Acid Calcium Magnesium Ferritin Total Bilirubin AST ALT Alkaline Phosphatase Lactate Dehydrogenase Total Creatine Kinase C-Reactive Protein Total Protein Albumin Triglycerides Arterial Blood Glucose Arterial Blood Ionized Calcium Ur Specific [place] Urine WBC (Auto) Vancomycin Trough Coronavirus (PCR) 12/08/20 12/08/20 12/09/20 06:10 06:10 04:24 WBC 12.0 H RBC 3.18 L Hgb 9.5 L Hct 28.9 L MCHC RDW Plt Count Lymph % (Auto) [place] % (Auto) Lymph # (Auto) [place] # (Auto) Baso # (Auto) Seg Neutrophils % Seg Neuts % (Manual) 95.0 H Lymphocytes % (Manual) 3.0 L Nucleated RBC % Seg Neutrophils # Seg Neutrophils # Man 11.4 H Lymphocytes # (Manual) 0.4 L D-Dimer ABG pH POC ABG pCO2 76.2 H POC ABG pO2 52.8 L ABG pO2 ABG HCO3 ABG O2 Saturation ABG Base Excess ABG Hemoglobin 11.7 L ABG Oxyhemoglobin ABG Sodium 132.0 L ABG Potassium ABG Chloride 87.0 L ABG Glucose 118 H Oxyhemoglobin Carboxyhemoglobin Sodium 133 L Potassium Chloride 86.3 L Carbon Dioxide 53 H* BUN Creatinine 0.2 L Glucose 156 H POC Glucose Hemoglobin A1c Lactic Acid Calcium 7.6 L Magnesium Ferritin Total Bilirubin AST ALT Alkaline Phosphatase Lactate Dehydrogenase Total Creatine Kinase C-Reactive Protein Total Protein Albumin Triglycerides Arterial Blood Glucose 118 H Arterial Blood Ionized Calcium 4.2 L Ur Specific [place] Urine WBC (Auto) Vancomycin Trough Coronavirus (PCR) 12/09/20 12/09/20 12/09/20 05:44 06:40 06:40 WBC 13.5 H RBC 3.28 L Hgb 9.7 L Hct 29.9 L MCHC RDW Plt Count Lymph % (Auto) [place] % (Auto) Lymph # (Auto) [place] # (Auto) Baso # (Auto) Seg Neutrophils % Seg Neuts % (Manual) Lymphocytes % (Manual) Nucleated RBC % Seg Neutrophils # Seg Neutrophils # Man Lymphocytes # (Manual) D-Dimer ABG pH POC ABG pCO2 POC ABG pO2 ABG pO2 ABG HCO3 ABG O2 Saturation ABG Base Excess ABG Hemoglobin ABG Oxyhemoglobin ABG Sodium ABG Potassium ABG Chloride ABG Glucose Oxyhemoglobin Carboxyhemoglobin Sodium 135 L Potassium Chloride 89.5 L Carbon Dioxide 52 H* BUN Creatinine 0.3 L Glucose 114 H POC Glucose 117 H Hemoglobin A1c Lactic Acid Calcium 7.6 L Magnesium Ferritin Total Bilirubin AST ALT Alkaline Phosphatase Lactate Dehydrogenase Total Creatine Kinase C-Reactive Protein Total Protein Albumin Triglycerides Arterial Blood Glucose Arterial Blood Ionized Calcium Ur Specific [place] Urine WBC (Auto) Vancomycin Trough Coronavirus (PCR) 12/09/20 12/09/20 12/10/20 16:42 21:11 04:28 WBC RBC Hgb Hct MCHC RDW Plt Count Lymph % (Auto) [place] % (Auto) Lymph # (Auto) [place] # (Auto) Baso # (Auto) Seg Neutrophils % Seg Neuts % (Manual) Lymphocytes % (Manual) Nucleated RBC % Seg Neutrophils # Seg Neutrophils # Man Lymphocytes # (Manual) D-Dimer ABG pH POC ABG pCO2 72.5 H 69.4 H 76.9 H POC ABG pO2 50.4 L 80.6 L 60.2 L ABG pO2 ABG HCO3 ABG O2 Saturation ABG Base Excess ABG Hemoglobin 10.4 L 10.7 L 10 L ABG Oxyhemoglobin 84.3 L 89.7 L ABG Sodium 133.7 L 133.7 L 133.8 L ABG Potassium ABG Chloride 90.0 L 91.0 L 91.0 L ABG Glucose 116 H 96 H 57 L Oxyhemoglobin Carboxyhemoglobin 0.4 L Sodium Potassium Chloride Carbon Dioxide BUN Creatinine Glucose POC Glucose Hemoglobin A1c Lactic Acid Calcium Magnesium Ferritin Total Bilirubin AST ALT Alkaline Phosphatase Lactate Dehydrogenase Total Creatine Kinase C-Reactive Protein Total Protein Albumin Triglycerides Arterial Blood Glucose 116 H 96 H 57 L Arterial Blood Ionized Calcium 4.2 L 4.3 L 4.2 L Ur Specific [place] Urine WBC (Auto) Vancomycin Trough Coronavirus (PCR) 12/10/20 12/10/20 12/10/20 05:09 05:41 11:50 WBC RBC Hgb Hct MCHC RDW Plt Count Lymph % (Auto) [place] % (Auto) Lymph # (Auto) [place] # (Auto) Baso # (Auto) Seg Neutrophils % Seg Neuts % (Manual) Lymphocytes % (Manual) Nucleated RBC % Seg Neutrophils # Seg Neutrophils # Man Lymphocytes # (Manual) D-Dimer ABG pH POC ABG pCO2 POC ABG pO2 ABG pO2 ABG HCO3 ABG O2 Saturation ABG Base Excess ABG Hemoglobin ABG Oxyhemoglobin ABG Sodium ABG Potassium ABG Chloride ABG Glucose Oxyhemoglobin Carboxyhemoglobin Sodium Potassium Chloride Carbon Dioxide BUN Creatinine Glucose POC Glucose 41 L 138 H 106 H Hemoglobin A1c Lactic Acid Calcium Magnesium Ferritin Total Bilirubin AST ALT Alkaline Phosphatase Lactate Dehydrogenase Total Creatine Kinase C-Reactive Protein Total Protein Albumin Triglycerides Arterial Blood Glucose Arterial Blood Ionized Calcium Ur Specific [place] Urine WBC (Auto) Vancomycin Trough Coronavirus (PCR) 12/10/20 12/10/20 12/11/20 17:34 23:25 04:06 WBC RBC Hgb Hct MCHC RDW Plt Count Lymph % (Auto) [place] % (Auto) Lymph # (Auto) [place] # (Auto) Baso # (Auto) Seg Neutrophils % Seg Neuts % (Manual) Lymphocytes % (Manual) Nucleated RBC % Seg Neutrophils # Seg Neutrophils # Man Lymphocytes # (Manual) D-Dimer ABG pH POC ABG pCO2 71.0 H POC ABG pO2 56.8 L ABG pO2 ABG HCO3 ABG O2 Saturation ABG Base Excess ABG Hemoglobin 10.1 L ABG Oxyhemoglobin 88.5 L ABG Sodium 132.3 L ABG Potassium ABG Chloride 91.0 L ABG Glucose 168 H Oxyhemoglobin Carboxyhemoglobin Sodium Potassium Chloride Carbon Dioxide BUN Creatinine Glucose POC Glucose 121 H 167 H Hemoglobin A1c Lactic Acid Calcium Magnesium Ferritin Total Bilirubin AST ALT Alkaline Phosphatase Lactate Dehydrogenase Total Creatine Kinase C-Reactive Protein Total Protein Albumin Triglycerides Arterial Blood Glucose 168 H Arterial Blood Ionized Calcium 4.1 L Ur Specific [place] Urine WBC (Auto) Vancomycin Trough Coronavirus (PCR) 12/11/20 12/11/20 12/11/20 05:21 11:44 15:40 WBC RBC Hgb Hct MCHC RDW Plt Count Lymph % (Auto) [place] % (Auto) Lymph # (Auto) [place] # (Auto) Baso # (Auto) Seg Neutrophils % Seg Neuts % (Manual) Lymphocytes % (Manual) Nucleated RBC % Seg Neutrophils # Seg Neutrophils # Man Lymphocytes # (Manual) D-Dimer ABG pH 7.454 H POC ABG pCO2 58.6 H POC ABG pO2 50.7 L ABG pO2 ABG HCO3 ABG O2 Saturation ABG Base Excess ABG Hemoglobin 10.1 L ABG Oxyhemoglobin 86.2 L ABG Sodium 131.2 L ABG Potassium ABG Chloride 92.0 L ABG Glucose 197 H Oxyhemoglobin Carboxyhemoglobin Sodium Potassium Chloride Carbon Dioxide BUN Creatinine Glucose POC Glucose 149 H 202 H Hemoglobin A1c Lactic Acid Calcium Magnesium Ferritin Total Bilirubin AST ALT Alkaline Phosphatase Lactate Dehydrogenase Total Creatine Kinase C-Reactive Protein Total Protein Albumin Triglycerides Arterial Blood Glucose 197 H Arterial Blood Ionized Calcium 4.2 L Ur Specific [place] Urine WBC (Auto) Vancomycin Trough Coronavirus (PCR) 12/11/20 12/11/20 12/12/20 17:09 23:16 05:09 WBC RBC Hgb Hct MCHC RDW Plt Count Lymph % (Auto) [place] % (Auto) Lymph # (Auto) [place] # (Auto) Baso # (Auto) Seg Neutrophils % Seg Neuts % (Manual) Lymphocytes % (Manual) Nucleated RBC % Seg Neutrophils # Seg Neutrophils # Man Lymphocytes # (Manual) D-Dimer ABG pH POC ABG pCO2 63.1 H POC ABG pO2 62.6 L ABG pO2 ABG HCO3 ABG O2 Saturation ABG Base Excess ABG Hemoglobin 10.3 L ABG Oxyhemoglobin ABG Sodium 130.3 L ABG Potassium 4.6 H ABG Chloride 92.0 L ABG Glucose 215 H Oxyhemoglobin Carboxyhemoglobin Sodium Potassium Chloride Carbon Dioxide BUN Creatinine Glucose POC Glucose 181 H 192 H Hemoglobin A1c Lactic Acid Calcium Magnesium Ferritin Total Bilirubin AST ALT Alkaline Phosphatase Lactate Dehydrogenase Total Creatine Kinase C-Reactive Protein Total Protein Albumin Triglycerides Arterial Blood Glucose 215 H Arterial Blood Ionized Calcium 4.4 L Ur Specific [place] Urine WBC (Auto) Vancomycin Trough Coronavirus (PCR) 12/12/20 12/12/20 12/12/20 05:16 05:47 11:41 WBC RBC Hgb Hct MCHC RDW Plt Count Lymph % (Auto) [place] % (Auto) Lymph # (Auto) [place] # (Auto) Baso # (Auto) Seg Neutrophils % Seg Neuts % (Manual) Lymphocytes % (Manual) Nucleated RBC % Seg Neutrophils # Seg Neutrophils # Man Lymphocytes # (Manual) D-Dimer ABG pH POC ABG pCO2 POC ABG pO2 ABG pO2 ABG HCO3 ABG O2 Saturation ABG Base Excess ABG Hemoglobin ABG Oxyhemoglobin ABG Sodium ABG Potassium ABG Chloride ABG Glucose Oxyhemoglobin Carboxyhemoglobin Sodium Potassium Chloride Carbon Dioxide BUN Creatinine Glucose POC Glucose 208 H 218 H Hemoglobin A1c Lactic Acid Calcium Magnesium Ferritin Total Bilirubin AST ALT Alkaline Phosphatase Lactate Dehydrogenase Total Creatine Kinase C-Reactive Protein Total Protein Albumin Triglycerides 150 H Arterial Blood Glucose Arterial Blood Ionized Calcium Ur Specific [place] Urine WBC (Auto) Vancomycin Trough Coronavirus (PCR) 12/12/20 12/12/20 12/13/20 17:05 23:18 03:36 WBC RBC Hgb Hct MCHC RDW Plt Count Lymph % (Auto) [place] % (Auto) Lymph # (Auto) [place] # (Auto) Baso # (Auto) Seg Neutrophils % Seg Neuts % (Manual) Lymphocytes % (Manual) Nucleated RBC % Seg Neutrophils # Seg Neutrophils # Man Lymphocytes # (Manual) D-Dimer ABG pH POC ABG pCO2 61.5 H POC ABG pO2 77.6 L ABG pO2 ABG HCO3 ABG O2 Saturation ABG Base Excess ABG Hemoglobin 10.2 L ABG Oxyhemoglobin ABG Sodium 127.5 L ABG Potassium ABG Chloride 91.0 L ABG Glucose 232 H Oxyhemoglobin Carboxyhemoglobin Sodium Potassium Chloride Carbon Dioxide BUN Creatinine Glucose POC Glucose 187 H 176 H Hemoglobin A1c Lactic Acid Calcium Magnesium Ferritin Total Bilirubin AST ALT Alkaline Phosphatase Lactate Dehydrogenase Total Creatine Kinase C-Reactive Protein Total Protein Albumin Triglycerides Arterial Blood Glucose 232 H Arterial Blood Ionized Calcium 4.2 L Ur Specific [place] Urine WBC (Auto) Vancomycin Trough Coronavirus (PCR) 12/13/20 12/13/20 12/13/20 05:13 10:00 11:30 WBC RBC 3.50 L Hgb 10.5 L Hct 31.9 L MCHC RDW Plt Count Lymph % (Auto) [place] % (Auto) Lymph # (Auto) [place] # (Auto) Baso # (Auto) Seg Neutrophils % Seg Neuts % (Manual) 96.0 H Lymphocytes % (Manual) Nucleated RBC % Seg Neutrophils # Seg Neutrophils # Man 9.2 H Lymphocytes # (Manual) 0.0 L D-Dimer ABG pH POC ABG pCO2 POC ABG pO2 ABG pO2 ABG HCO3 ABG O2 Saturation ABG Base Excess ABG Hemoglobin ABG Oxyhemoglobin ABG Sodium ABG Potassium ABG Chloride ABG Glucose Oxyhemoglobin Carboxyhemoglobin Sodium Potassium Chloride Carbon Dioxide BUN Creatinine Glucose POC Glucose 204 H Hemoglobin A1c Lactic Acid Calcium Magnesium Ferritin Total Bilirubin AST ALT Alkaline Phosphatase Lactate Dehydrogenase Total Creatine Kinase C-Reactive Protein Total Protein Albumin Triglycerides Arterial Blood Glucose Arterial Blood Ionized Calcium Ur Specific [place] Urine WBC (Auto) Vancomycin Trough Coronavirus (PCR) Positive A 12/13/20 12/13/20 12/13/20 11:30 12:01 18:04 WBC RBC Hgb Hct MCHC RDW Plt Count Lymph % (Auto) [place] % (Auto) Lymph # (Auto) [place] # (Auto) Baso # (Auto) Seg Neutrophils % Seg Neuts % (Manual) Lymphocytes % (Manual) Nucleated RBC % Seg Neutrophils # Seg Neutrophils # Man Lymphocytes # (Manual) D-Dimer ABG pH POC ABG pCO2 POC ABG pO2 ABG pO2 ABG HCO3 ABG O2 Saturation ABG Base Excess ABG Hemoglobin ABG Oxyhemoglobin ABG Sodium ABG Potassium ABG Chloride ABG Glucose Oxyhemoglobin Carboxyhemoglobin Sodium 132 L Potassium Chloride 90.1 L Carbon Dioxide 41 H* D BUN Creatinine 0.2 L Glucose 249 H POC Glucose 224 H 172 H Hemoglobin A1c Lactic Acid Calcium 7.4 L Magnesium Ferritin Total Bilirubin AST ALT 61 H Alkaline Phosphatase Lactate Dehydrogenase Total Creatine Kinase C-Reactive Protein Total Protein 5.7 L Albumin 2.3 L Triglycerides Arterial Blood Glucose Arterial Blood Ionized Calcium Ur Specific [place] Urine WBC (Auto) Vancomycin Trough Coronavirus (PCR) 12/13/20 12/14/20 12/14/20 23:37 04:05 04:35 WBC RBC 3.37 L Hgb 10.1 L Hct 30.7 L MCHC RDW 15.4 H Plt Count Lymph % (Auto) [place] % (Auto) Lymph # (Auto) [place] # (Auto) Baso # (Auto) Seg Neutrophils % Seg Neuts % (Manual) 93.0 H Lymphocytes % (Manual) 3.0 L Nucleated RBC % Seg Neutrophils # Seg Neutrophils # Man 7.8 H Lymphocytes # (Manual) 0.3 L D-Dimer ABG pH POC ABG pCO2 72.2 H POC ABG pO2 61.5 L ABG pO2 ABG HCO3 ABG O2 Saturation ABG Base Excess ABG Hemoglobin ABG Oxyhemoglobin 89.9 L ABG Sodium 131.4 L ABG Potassium ABG Chloride 91.0 L ABG Glucose 205 H Oxyhemoglobin Carboxyhemoglobin Sodium Potassium Chloride Carbon Dioxide BUN Creatinine Glucose POC Glucose 200 H Hemoglobin A1c Lactic Acid Calcium Magnesium Ferritin Total Bilirubin AST ALT Alkaline Phosphatase Lactate Dehydrogenase Total Creatine Kinase C-Reactive Protein Total Protein Albumin Triglycerides Arterial Blood Glucose 205 H Arterial Blood Ionized Calcium 4.3 L Ur Specific [place] Urine WBC (Auto) Vancomycin Trough Coronavirus (PCR) 12/14/20 12/14/20 12/14/20 04:35 05:12 11:31 WBC RBC Hgb Hct MCHC RDW Plt Count Lymph % (Auto) [place] % (Auto) Lymph # (Auto) [place] # (Auto) Baso # (Auto) Seg Neutrophils % Seg Neuts % (Manual) Lymphocytes % (Manual) Nucleated RBC % Seg Neutrophils # Seg Neutrophils # Man Lymphocytes # (Manual) D-Dimer ABG pH POC ABG pCO2 POC ABG pO2 ABG pO2 ABG HCO3 ABG O2 Saturation ABG Base Excess ABG Hemoglobin ABG Oxyhemoglobin ABG Sodium ABG Potassium ABG Chloride ABG Glucose Oxyhemoglobin Carboxyhemoglobin Sodium 135 L Potassium Chloride 92.5 L Carbon Dioxide 38 H BUN Creatinine 0.2 L Glucose 184 H POC Glucose 176 H 212 H Hemoglobin A1c Lactic Acid Calcium 7.7 L Magnesium Ferritin Total Bilirubin AST ALT Alkaline Phosphatase Lactate Dehydrogenase Total Creatine Kinase C-Reactive Protein Total Protein Albumin Triglycerides Arterial Blood Glucose Arterial Blood Ionized Calcium Ur Specific [place] Urine WBC (Auto) Vancomycin Trough Coronavirus (PCR) 12/14/20 12/14/20 12/15/20 17:30 23:30 03:19 WBC RBC Hgb Hct MCHC RDW Plt Count Lymph % (Auto) [place] % (Auto) Lymph # (Auto) [place] # (Auto) Baso # (Auto) Seg Neutrophils % Seg Neuts % (Manual) Lymphocytes % (Manual) Nucleated RBC % Seg Neutrophils # Seg Neutrophils # Man Lymphocytes # (Manual) D-Dimer ABG pH POC ABG pCO2 62.0 H POC ABG pO2 66.0 L ABG pO2 ABG HCO3 ABG O2 Saturation ABG Base Excess ABG Hemoglobin 10.3 L ABG Oxyhemoglobin ABG Sodium 130.5 L ABG Potassium ABG Chloride 91.0 L ABG Glucose 166 H Oxyhemoglobin Carboxyhemoglobin Sodium Potassium Chloride Carbon Dioxide BUN Creatinine Glucose POC Glucose 222 H 176 H Hemoglobin A1c Lactic Acid Calcium Magnesium Ferritin Total Bilirubin AST ALT Alkaline Phosphatase Lactate Dehydrogenase Total Creatine Kinase C-Reactive Protein Total Protein Albumin Triglycerides Arterial Blood Glucose 166 H Arterial Blood Ionized Calcium 4.4 L Ur Specific [place] Urine WBC (Auto) Vancomycin Trough Coronavirus (PCR) 12/15/20 12/15/20 12/15/20 05:24 11:39 17:30 WBC RBC Hgb Hct MCHC RDW Plt Count Lymph % (Auto) [place] % (Auto) Lymph # (Auto) [place] # (Auto) Baso # (Auto) Seg Neutrophils % Seg Neuts % (Manual) Lymphocytes % (Manual) Nucleated RBC % Seg Neutrophils # Seg Neutrophils # Man Lymphocytes # (Manual) D-Dimer ABG pH POC ABG pCO2 POC ABG pO2 ABG pO2 ABG HCO3 ABG O2 Saturation ABG Base Excess ABG Hemoglobin ABG Oxyhemoglobin ABG Sodium ABG Potassium ABG Chloride ABG Glucose Oxyhemoglobin Carboxyhemoglobin Sodium Potassium Chloride Carbon Dioxide BUN Creatinine Glucose POC Glucose 160 H 140 H 246 H Hemoglobin A1c Lactic Acid Calcium Magnesium Ferritin Total Bilirubin AST ALT Alkaline Phosphatase Lactate Dehydrogenase Total Creatine Kinase C-Reactive Protein Total Protein Albumin Triglycerides Arterial Blood Glucose Arterial Blood Ionized Calcium Ur Specific [place] Urine WBC (Auto) Vancomycin Trough Coronavirus (PCR) 12/15/20 12/16/20 12/16/20 23:42 03:54 04:46 WBC RBC 3.48 L Hgb 10.6 L Hct 31.5 L MCHC RDW 15.8 H Plt Count Lymph % (Auto) [place] % (Auto) Lymph # (Auto) [place] # (Auto) Baso # (Auto) Seg Neutrophils % Seg Neuts % (Manual) Lymphocytes % (Manual) Nucleated RBC % Seg Neutrophils # Seg Neutrophils # Man Lymphocytes # (Manual) D-Dimer ABG pH POC ABG pCO2 63.6 H POC ABG pO2 55.0 L ABG pO2 ABG HCO3 ABG O2 Saturation ABG Base Excess ABG Hemoglobin 11.1 L ABG Oxyhemoglobin 87.3 L ABG Sodium 130.7 L ABG Potassium ABG Chloride 89.0 L ABG Glucose 211 H Oxyhemoglobin Carboxyhemoglobin Sodium Potassium Chloride Carbon Dioxide BUN Creatinine Glucose POC Glucose 139 H Hemoglobin A1c Lactic Acid Calcium Magnesium Ferritin Total Bilirubin AST ALT Alkaline Phosphatase Lactate Dehydrogenase Total Creatine Kinase C-Reactive Protein Total Protein Albumin Triglycerides Arterial Blood Glucose 211 H Arterial Blood Ionized Calcium 4.3 L Ur Specific [place] Urine WBC (Auto) Vancomycin Trough Coronavirus (PCR) 12/16/20 12/16/20 12/16/20 04:46 05:34 11:40 WBC RBC Hgb Hct MCHC RDW Plt Count Lymph % (Auto) [place] % (Auto) Lymph # (Auto) [place] # (Auto) Baso # (Auto) Seg Neutrophils % Seg Neuts % (Manual) Lymphocytes % (Manual) Nucleated RBC % Seg Neutrophils # Seg Neutrophils # Man Lymphocytes # (Manual) D-Dimer ABG pH POC ABG pCO2 POC ABG pO2 ABG pO2 ABG HCO3 ABG O2 Saturation ABG Base Excess ABG Hemoglobin ABG Oxyhemoglobin ABG Sodium ABG Potassium ABG Chloride ABG Glucose Oxyhemoglobin Carboxyhemoglobin Sodium 134 L Potassium Chloride 89.7 L Carbon Dioxide 38 H BUN Creatinine < 0.2 L Glucose 203 H POC Glucose 155 H 239 H Hemoglobin A1c Lactic Acid Calcium 7.5 L Magnesium Ferritin Total Bilirubin AST ALT Alkaline Phosphatase Lactate Dehydrogenase Total Creatine Kinase C-Reactive Protein Total Protein Albumin Triglycerides Arterial Blood Glucose Arterial Blood Ionized Calcium Ur Specific [place] Urine WBC (Auto) Vancomycin Trough Coronavirus (PCR) 12/16/20 12/16/20 12/17/20 17:42 23:45 03:59 WBC RBC Hgb Hct MCHC RDW Plt Count Lymph % (Auto) [place] % (Auto) Lymph # (Auto) [place] # (Auto) Baso # (Auto) Seg Neutrophils % Seg Neuts % (Manual) Lymphocytes % (Manual) Nucleated RBC % Seg Neutrophils # Seg Neutrophils # Man Lymphocytes # (Manual) D-Dimer ABG pH POC ABG pCO2 71.9 H POC ABG pO2 57.5 L ABG pO2 ABG HCO3 ABG O2 Saturation ABG Base Excess ABG Hemoglobin 10.8 L ABG Oxyhemoglobin 87.7 L ABG Sodium 131.5 L ABG Potassium ABG Chloride 90.0 L ABG Glucose 199 H Oxyhemoglobin Carboxyhemoglobin Sodium Potassium Chloride Carbon Dioxide BUN Creatinine Glucose POC Glucose 228 H 187 H Hemoglobin A1c Lactic Acid Calcium Magnesium Ferritin Total Bilirubin AST ALT Alkaline Phosphatase Lactate Dehydrogenase Total Creatine Kinase C-Reactive Protein Total Protein Albumin Triglycerides Arterial Blood Glucose 199 H Arterial Blood Ionized Calcium 4.4 L Ur Specific [place] Urine WBC (Auto) Vancomycin Trough Coronavirus (PCR) 12/17/20 12/17/20 12/17/20 05:35 11:55 12:40 WBC RBC Hgb Hct MCHC RDW Plt Count Lymph % (Auto) [place] % (Auto) Lymph # (Auto) [place] # (Auto) Baso # (Auto) Seg Neutrophils % Seg Neuts % (Manual) Lymphocytes % (Manual) Nucleated RBC % Seg Neutrophils # Seg Neutrophils # Man Lymphocytes # (Manual) D-Dimer ABG pH POC ABG pCO2 POC ABG pO2 ABG pO2 ABG HCO3 ABG O2 Saturation ABG Base Excess ABG Hemoglobin ABG Oxyhemoglobin ABG Sodium ABG Potassium ABG Chloride ABG Glucose Oxyhemoglobin Carboxyhemoglobin Sodium Potassium Chloride 95.2 L Carbon Dioxide 41 H* BUN Creatinine 0.2 L Glucose 138 H POC Glucose 159 H 181 H Hemoglobin A1c Lactic Acid Calcium 7.3 L Magnesium Ferritin Total Bilirubin AST ALT Alkaline Phosphatase Lactate Dehydrogenase Total Creatine Kinase C-Reactive Protein Total Protein Albumin Triglycerides Arterial Blood Glucose Arterial Blood Ionized Calcium Ur Specific [place] Urine WBC (Auto) Vancomycin Trough Coronavirus (PCR) 12/17/20 12/17/20 12/17/20 17:25 17:25 17:51 WBC RBC Hgb Hct MCHC RDW Plt Count Lymph % (Auto) [place] % (Auto) Lymph # (Auto) [place] # (Auto) Baso # (Auto) Seg Neutrophils % Seg Neuts % (Manual) Lymphocytes % (Manual) Nucleated RBC % Seg Neutrophils # Seg Neutrophils # Man Lymphocytes # (Manual) D-Dimer ABG pH POC ABG pCO2 POC ABG pO2 ABG pO2 ABG HCO3 ABG O2 Saturation ABG Base Excess ABG Hemoglobin ABG Oxyhemoglobin ABG Sodium ABG Potassium ABG Chloride ABG Glucose Oxyhemoglobin Carboxyhemoglobin Sodium 134 L Potassium Chloride 89.6 L Carbon Dioxide 44 H* BUN Creatinine 0.2 L Glucose 280 H POC Glucose 260 H Hemoglobin A1c Lactic Acid Calcium 8.0 L Magnesium 1.60 L Ferritin Total Bilirubin AST ALT Alkaline Phosphatase Lactate Dehydrogenase Total Creatine Kinase 47 L C-Reactive Protein Total Protein 6.2 L Albumin 2.1 L Triglycerides Arterial Blood Glucose Arterial Blood Ionized Calcium Ur Specific [place] Urine WBC (Auto) Vancomycin Trough Coronavirus (PCR) 12/18/20 12/18/20 12/18/20 00:12 03:56 04:32 WBC RBC 2.88 L Hgb 8.6 L Hct 26.0 L MCHC RDW 15.6 H Plt Count Lymph % (Auto) [place] % (Auto) Lymph # (Auto) [place] # (Auto) Baso # (Auto) Seg Neutrophils % Seg Neuts % (Manual) Lymphocytes % (Manual) Nucleated RBC % Seg Neutrophils # Seg Neutrophils # Man Lymphocytes # (Manual) D-Dimer ABG pH POC ABG pCO2 78.0 H POC ABG pO2 52.3 L ABG pO2 ABG HCO3 ABG O2 Saturation ABG Base Excess ABG Hemoglobin 11.7 L ABG Oxyhemoglobin 84.9 L ABG Sodium 131.6 L ABG Potassium ABG Chloride 89.0 L ABG Glucose 191 H Oxyhemoglobin Carboxyhemoglobin Sodium Potassium Chloride Carbon Dioxide BUN Creatinine Glucose POC Glucose 197 H Hemoglobin A1c Lactic Acid Calcium Magnesium Ferritin Total Bilirubin AST ALT Alkaline Phosphatase Lactate Dehydrogenase Total Creatine Kinase C-Reactive Protein Total Protein Albumin Triglycerides Arterial Blood Glucose 191 H Arterial Blood Ionized Calcium 4.4 L Ur Specific [place] Urine WBC (Auto) Vancomycin Trough Coronavirus (PCR) 12/18/20 12/18/20 12/18/20 04:32 05:19 08:27 WBC RBC Hgb Hct MCHC RDW Plt Count Lymph % (Auto) [place] % (Auto) Lymph # (Auto) [place] # (Auto) Baso # (Auto) Seg Neutrophils % Seg Neuts % (Manual) Lymphocytes % (Manual) Nucleated RBC % Seg Neutrophils # Seg Neutrophils # Man Lymphocytes # (Manual) D-Dimer ABG pH POC ABG pCO2 POC ABG pO2 ABG pO2 ABG HCO3 ABG O2 Saturation ABG Base Excess ABG Hemoglobin ABG Oxyhemoglobin ABG Sodium ABG Potassium ABG Chloride ABG Glucose Oxyhemoglobin Carboxyhemoglobin Sodium 134 L 131 L Potassium Chloride 89.5 L 89.0 L Carbon Dioxide 43 H* 41 H* BUN Creatinine < 0.2 L < 0.2 L Glucose 182 H 176 H POC Glucose 165 H Hemoglobin A1c Lactic Acid Calcium 8.1 L 7.5 L Magnesium Ferritin Total Bilirubin AST ALT Alkaline Phosphatase Lactate Dehydrogenase Total Creatine Kinase C-Reactive Protein Total Protein Albumin Triglycerides Arterial Blood Glucose Arterial Blood Ionized Calcium Ur Specific [place] Urine WBC (Auto) Vancomycin Trough Coronavirus (PCR) 12/18/20 12/18/20 12/18/20 11:37 17:26 23:19 WBC RBC Hgb Hct MCHC RDW Plt Count Lymph % (Auto) [place] % (Auto) Lymph # (Auto) [place] # (Auto) Baso # (Auto) Seg Neutrophils % Seg Neuts % (Manual) Lymphocytes % (Manual) Nucleated RBC % Seg Neutrophils # Seg Neutrophils # Man Lymphocytes # (Manual) D-Dimer ABG pH POC ABG pCO2 POC ABG pO2 ABG pO2 ABG HCO3 ABG O2 Saturation ABG Base Excess ABG Hemoglobin ABG Oxyhemoglobin ABG Sodium ABG Potassium ABG Chloride ABG Glucose Oxyhemoglobin Carboxyhemoglobin Sodium Potassium Chloride Carbon Dioxide BUN Creatinine Glucose POC Glucose 174 H 243 H 212 H Hemoglobin A1c Lactic Acid Calcium Magnesium Ferritin Total Bilirubin AST ALT Alkaline Phosphatase Lactate Dehydrogenase Total Creatine Kinase C-Reactive Protein Total Protein Albumin Triglycerides Arterial Blood Glucose Arterial Blood Ionized Calcium Ur Specific [place] Urine WBC (Auto) Vancomycin Trough Coronavirus (PCR) 12/19/20 12/19/20 12/19/20 03:41 05:26 11:56 WBC RBC Hgb Hct MCHC RDW Plt Count Lymph % (Auto) [place] % (Auto) Lymph # (Auto) [place] # (Auto) Baso # (Auto) Seg Neutrophils % Seg Neuts % (Manual) Lymphocytes % (Manual) Nucleated RBC % Seg Neutrophils # Seg Neutrophils # Man Lymphocytes # (Manual) D-Dimer ABG pH POC ABG pCO2 75.4 H POC ABG pO2 50.7 L ABG pO2 ABG HCO3 ABG O2 Saturation ABG Base Excess ABG Hemoglobin 10.4 L ABG Oxyhemoglobin 84.2 L ABG Sodium 131.1 L ABG Potassium ABG Chloride 89.0 L ABG Glucose 194 H Oxyhemoglobin Carboxyhemoglobin 1.6 H Sodium Potassium Chloride Carbon Dioxide BUN Creatinine Glucose POC Glucose 166 H 173 H Hemoglobin A1c Lactic Acid Calcium Magnesium Ferritin Total Bilirubin AST ALT Alkaline Phosphatase Lactate Dehydrogenase Total Creatine Kinase C-Reactive Protein Total Protein Albumin Triglycerides Arterial Blood Glucose 194 H Arterial Blood Ionized Calcium 4.3 L Ur Specific [place] Urine WBC (Auto) Vancomycin Trough Coronavirus (PCR) 12/19/20 12/19/20 12/19/20 18:17 23:39 Unknown WBC RBC Hgb Hct MCHC RDW Plt Count Lymph % (Auto) [place] % (Auto) Lymph # (Auto) [place] # (Auto) Baso # (Auto) Seg Neutrophils % Seg Neuts % (Manual) Lymphocytes % (Manual) Nucleated RBC % Seg Neutrophils # Seg Neutrophils # Man Lymphocytes # (Manual) D-Dimer ABG pH POC ABG pCO2 POC ABG pO2 ABG pO2 ABG HCO3 ABG O2 Saturation ABG Base Excess ABG Hemoglobin ABG Oxyhemoglobin ABG Sodium ABG Potassium ABG Chloride ABG Glucose Oxyhemoglobin Carboxyhemoglobin Sodium 133 L Potassium Chloride 89.9 L Carbon Dioxide 39 H BUN Creatinine 0.2 L Glucose 197 H POC Glucose 212 H 133 H Hemoglobin A1c Lactic Acid Calcium 7.6 L Magnesium Ferritin Total Bilirubin AST ALT Alkaline Phosphatase Lactate Dehydrogenase Total Creatine Kinase C-Reactive Protein Total Protein Albumin Triglycerides Arterial Blood Glucose Arterial Blood Ionized Calcium Ur Specific [place] Urine WBC (Auto) Vancomycin Trough Coronavirus (PCR) 12/20/20 12/20/20 12/20/20 03:26 04:00 04:00 WBC RBC 3.21 L Hgb 9.6 L Hct 29.2 L MCHC RDW 15.8 H Plt Count Lymph % (Auto) [place] % (Auto) Lymph # (Auto) [place] # (Auto) Baso # (Auto) Seg Neutrophils % Seg Neuts % (Manual) Lymphocytes % (Manual) Nucleated RBC % Seg Neutrophils # Seg Neutrophils # Man Lymphocytes # (Manual) D-Dimer ABG pH POC ABG pCO2 74.2 H POC ABG pO2 51.3 L ABG pO2 ABG HCO3 ABG O2 Saturation ABG Base Excess ABG Hemoglobin 10.0 L ABG Oxyhemoglobin ABG Sodium 128.9 L ABG Potassium ABG Chloride 87.0 L ABG Glucose 173 H Oxyhemoglobin Carboxyhemoglobin Sodium 132 L Potassium Chloride 86.0 L Carbon Dioxide 43 H* BUN Creatinine 0.2 L Glucose 193 H POC Glucose Hemoglobin A1c Lactic Acid Calcium 7.6 L Magnesium Ferritin Total Bilirubin AST ALT Alkaline Phosphatase Lactate Dehydrogenase Total Creatine Kinase C-Reactive Protein Total Protein Albumin Triglycerides Arterial Blood Glucose 173 H Arterial Blood Ionized Calcium 4.1 L Ur Specific [place] Urine WBC (Auto) Vancomycin Trough Coronavirus (PCR) 12/20/20 12/20/20 12/20/20 05:05 11:47 18:18 WBC RBC Hgb Hct MCHC RDW Plt Count Lymph % (Auto) [place] % (Auto) Lymph # (Auto) [place] # (Auto) Baso # (Auto) Seg Neutrophils % Seg Neuts % (Manual) Lymphocytes % (Manual) Nucleated RBC % Seg Neutrophils # Seg Neutrophils # Man Lymphocytes # (Manual) D-Dimer ABG pH POC ABG pCO2 POC ABG pO2 ABG pO2 ABG HCO3 ABG O2 Saturation ABG Base Excess ABG Hemoglobin ABG Oxyhemoglobin ABG Sodium ABG Potassium ABG Chloride ABG Glucose Oxyhemoglobin Carboxyhemoglobin Sodium Potassium Chloride Carbon Dioxide BUN Creatinine Glucose POC Glucose 171 H 238 H 205 H Hemoglobin A1c Lactic Acid Calcium Magnesium Ferritin Total Bilirubin AST ALT Alkaline Phosphatase Lactate Dehydrogenase Total Creatine Kinase C-Reactive Protein Total Protein Albumin Triglycerides Arterial Blood Glucose Arterial Blood Ionized Calcium Ur Specific [place] Urine WBC (Auto) Vancomycin Trough Coronavirus (PCR) 12/20/20 12/21/20 12/21/20 23:41 03:30 05:37 WBC RBC Hgb Hct MCHC RDW Plt Count Lymph % (Auto) [place] % (Auto) Lymph # (Auto) [place] # (Auto) Baso # (Auto) Seg Neutrophils % Seg Neuts % (Manual) Lymphocytes % (Manual) Nucleated RBC % Seg Neutrophils # Seg Neutrophils # Man Lymphocytes # (Manual) D-Dimer ABG pH POC ABG pCO2 73.4 H POC ABG pO2 63.0 L ABG pO2 ABG HCO3 ABG O2 Saturation ABG Base Excess ABG Hemoglobin 10.1 L ABG Oxyhemoglobin ABG Sodium 130.5 L ABG Potassium ABG Chloride 89.0 L ABG Glucose 171 H Oxyhemoglobin Carboxyhemoglobin Sodium Potassium Chloride Carbon Dioxide BUN Creatinine Glucose POC Glucose 167 H 152 H Hemoglobin A1c Lactic Acid Calcium Magnesium Ferritin Total Bilirubin AST ALT Alkaline Phosphatase Lactate Dehydrogenase Total Creatine Kinase C-Reactive Protein Total Protein Albumin Triglycerides Arterial Blood Glucose 171 H Arterial Blood Ionized Calcium 4.2 L Ur Specific [place] Urine WBC (Auto) Vancomycin Trough Coronavirus (PCR) 12/21/20 12/21/20 12/21/20 09:57 12:54 18:00 WBC RBC Hgb Hct MCHC RDW Plt Count Lymph % (Auto) [place] % (Auto) Lymph # (Auto) [place] # (Auto) Baso # (Auto) Seg Neutrophils % Seg Neuts % (Manual) Lymphocytes % (Manual) Nucleated RBC % Seg Neutrophils # Seg Neutrophils # Man Lymphocytes # (Manual) D-Dimer ABG pH POC ABG pCO2 POC ABG pO2 ABG pO2 ABG HCO3 ABG O2 Saturation ABG Base Excess ABG Hemoglobin ABG Oxyhemoglobin ABG Sodium ABG Potassium ABG Chloride ABG Glucose Oxyhemoglobin Carboxyhemoglobin Sodium 132 L Potassium Chloride 87.7 L Carbon Dioxide 42 H* BUN Creatinine 0.2 L Glucose 207 H POC Glucose 199 H 217 H Hemoglobin A1c Lactic Acid Calcium 7.7 L Magnesium Ferritin Total Bilirubin AST ALT Alkaline Phosphatase Lactate Dehydrogenase Total Creatine Kinase C-Reactive Protein Total Protein Albumin Triglycerides Arterial Blood Glucose Arterial Blood Ionized Calcium Ur Specific [place] Urine WBC (Auto) Vancomycin Trough Coronavirus (PCR) 12/21/20 12/22/20 12/22/20 Unknown 00:02 04:08 WBC RBC Hgb Hct MCHC RDW Plt Count Lymph % (Auto) [place] % (Auto) Lymph # (Auto) [place] # (Auto) Baso # (Auto) Seg Neutrophils % Seg Neuts % (Manual) Lymphocytes % (Manual) Nucleated RBC % Seg Neutrophils # Seg Neutrophils # Man Lymphocytes # (Manual) D-Dimer ABG pH POC ABG pCO2 67.6 H POC ABG pO2 57.3 L ABG pO2 ABG HCO3 ABG O2 Saturation ABG Base Excess ABG Hemoglobin ABG Oxyhemoglobin ABG Sodium 130.9 L ABG Potassium ABG Chloride 92.0 L ABG Glucose 163 H Oxyhemoglobin Carboxyhemoglobin Sodium Potassium Chloride Carbon Dioxide BUN Creatinine Glucose POC Glucose 172 H Hemoglobin A1c Lactic Acid Calcium Magnesium Ferritin Total Bilirubin AST ALT Alkaline Phosphatase Lactate Dehydrogenase Total Creatine Kinase C-Reactive Protein Total Protein Albumin Triglycerides Arterial Blood Glucose 163 H Arterial Blood Ionized Calcium 4.2 L Ur Specific [place] Urine WBC (Auto) 172.0 H Vancomycin Trough Coronavirus (PCR) 12/22/20 12/22/20 12/22/20 05:19 11:33 17:20 WBC RBC Hgb Hct MCHC RDW Plt Count Lymph % (Auto) [place] % (Auto) Lymph # (Auto) [place] # (Auto) Baso # (Auto) Seg Neutrophils % Seg Neuts % (Manual) Lymphocytes % (Manual) Nucleated RBC % Seg Neutrophils # Seg Neutrophils # Man Lymphocytes # (Manual) D-Dimer ABG pH POC ABG pCO2 POC ABG pO2 ABG pO2 ABG HCO3 ABG O2 Saturation ABG Base Excess ABG Hemoglobin ABG Oxyhemoglobin ABG Sodium ABG Potassium ABG Chloride ABG Glucose Oxyhemoglobin Carboxyhemoglobin Sodium Potassium Chloride Carbon Dioxide BUN Creatinine Glucose POC Glucose 151 H 181 H 166 H Hemoglobin A1c Lactic Acid Calcium Magnesium Ferritin Total Bilirubin AST ALT Alkaline Phosphatase Lactate Dehydrogenase Total Creatine Kinase C-Reactive Protein Total Protein Albumin Triglycerides Arterial Blood Glucose Arterial Blood Ionized Calcium Ur Specific [place] Urine WBC (Auto) Vancomycin Trough Coronavirus (PCR) 12/22/20 12/23/20 12/23/20 23:25 05:19 05:32 WBC RBC Hgb Hct MCHC RDW Plt Count Lymph % (Auto) [place] % (Auto) Lymph # (Auto) [place] # (Auto) Baso # (Auto) Seg Neutrophils % Seg Neuts % (Manual) Lymphocytes % (Manual) Nucleated RBC % Seg Neutrophils # Seg Neutrophils # Man Lymphocytes # (Manual) D-Dimer ABG pH POC ABG pCO2 67.7 H POC ABG pO2 53.7 L ABG pO2 ABG HCO3 ABG O2 Saturation ABG Base Excess ABG Hemoglobin 9.6 L ABG Oxyhemoglobin ABG Sodium 130.2 L ABG Potassium ABG Chloride 88.0 L ABG Glucose 195 H Oxyhemoglobin Carboxyhemoglobin Sodium Potassium Chloride Carbon Dioxide BUN Creatinine Glucose POC Glucose 121 H 167 H Hemoglobin A1c Lactic Acid Calcium Magnesium Ferritin Total Bilirubin AST ALT Alkaline Phosphatase Lactate Dehydrogenase Total Creatine Kinase C-Reactive Protein Total Protein Albumin Triglycerides Arterial Blood Glucose 195 H Arterial Blood Ionized Calcium 4.1 L Ur Specific [place] Urine WBC (Auto) Vancomycin Trough Coronavirus (PCR) 12/23/20 12/23/20 12/23/20 06:07 11:21 18:10 WBC RBC Hgb Hct MCHC RDW Plt Count Lymph % (Auto) [place] % (Auto) Lymph # (Auto) [place] # (Auto) Baso # (Auto) Seg Neutrophils % Seg Neuts % (Manual) Lymphocytes % (Manual) Nucleated RBC % Seg Neutrophils # Seg Neutrophils # Man Lymphocytes # (Manual) D-Dimer ABG pH POC ABG pCO2 POC ABG pO2 ABG pO2 ABG HCO3 ABG O2 Saturation ABG Base Excess ABG Hemoglobin ABG Oxyhemoglobin ABG Sodium ABG Potassium ABG Chloride ABG Glucose Oxyhemoglobin Carboxyhemoglobin Sodium 135 L Potassium Chloride 89.3 L Carbon Dioxide 43 H* BUN Creatinine 0.2 L Glucose 193 H POC Glucose 155 H 178 H Hemoglobin A1c Lactic Acid Calcium 7.4 L Magnesium Ferritin Total Bilirubin AST ALT Alkaline Phosphatase Lactate Dehydrogenase Total Creatine Kinase C-Reactive Protein Total Protein Albumin Triglycerides Arterial Blood Glucose Arterial Blood Ionized Calcium Ur Specific [place] Urine WBC (Auto) Vancomycin Trough Coronavirus (PCR) 12/23/20 12/24/20 12/24/20 23:21 04:49 05:00 WBC RBC Hgb Hct MCHC RDW Plt Count Lymph % (Auto) [place] % (Auto) Lymph # (Auto) [place] # (Auto) Baso # (Auto) Seg Neutrophils % Seg Neuts % (Manual) Lymphocytes % (Manual) Nucleated RBC % Seg Neutrophils # Seg Neutrophils # Man Lymphocytes # (Manual) D-Dimer ABG pH POC ABG pCO2 75.5 H POC ABG pO2 50.5 L ABG pO2 ABG HCO3 ABG O2 Saturation ABG Base Excess ABG Hemoglobin 8.8 L ABG Oxyhemoglobin 86.3 L ABG Sodium 131.6 L ABG Potassium ABG Chloride 88.0 L ABG Glucose 186 H Oxyhemoglobin Carboxyhemoglobin 2.1 H Sodium Potassium Chloride Carbon Dioxide BUN Creatinine Glucose POC Glucose 126 H Hemoglobin A1c Lactic Acid Calcium Magnesium Ferritin Total Bilirubin AST ALT Alkaline Phosphatase Lactate Dehydrogenase Total Creatine Kinase C-Reactive Protein Total Protein Albumin Triglycerides 486 H Arterial Blood Glucose 186 H Arterial Blood Ionized Calcium 4.0 L Ur Specific [place] Urine WBC (Auto) Vancomycin Trough Coronavirus (PCR) 12/24/20 12/24/20 12/24/20 05:19 11:57 16:44 WBC RBC Hgb Hct MCHC RDW Plt Count Lymph % (Auto) [place] % (Auto) Lymph # (Auto) [place] # (Auto) Baso # (Auto) Seg Neutrophils % Seg Neuts % (Manual) Lymphocytes % (Manual) Nucleated RBC % Seg Neutrophils # Seg Neutrophils # Man Lymphocytes # (Manual) D-Dimer ABG pH POC ABG pCO2 POC ABG pO2 ABG pO2 ABG HCO3 ABG O2 Saturation ABG Base Excess ABG Hemoglobin ABG Oxyhemoglobin ABG Sodium ABG Potassium ABG Chloride ABG Glucose Oxyhemoglobin Carboxyhemoglobin Sodium Potassium Chloride Carbon Dioxide BUN Creatinine Glucose POC Glucose 162 H 163 H 191 H Hemoglobin A1c Lactic Acid Calcium Magnesium Ferritin Total Bilirubin AST ALT Alkaline Phosphatase Lactate Dehydrogenase Total Creatine Kinase C-Reactive Protein Total Protein Albumin Triglycerides Arterial Blood Glucose Arterial Blood Ionized Calcium Ur Specific [place] Urine WBC (Auto) Vancomycin Trough Coronavirus (PCR) 12/24/20 12/24/20 12/24/20 17:28 18:57 20:48 WBC 19.1 H RBC 2.91 L Hgb 8.3 L Hct 26.0 L MCHC RDW 16.0 H Plt Count Lymph % (Auto) [place] % (Auto) Lymph # (Auto) [place] # (Auto) Baso # (Auto) Seg Neutrophils % Seg Neuts % (Manual) 92.0 H Lymphocytes % (Manual) 5.0 L Nucleated RBC % Seg Neutrophils # Seg Neutrophils # Man 17.6 H Lymphocytes # (Manual) 1.0 L D-Dimer ABG pH 7.250 L POC ABG pCO2 102.6 H 82.1 H POC ABG pO2 42.4 L 38.6 L ABG pO2 ABG HCO3 ABG O2 Saturation ABG Base Excess ABG Hemoglobin 9.0 L 9.3 L ABG Oxyhemoglobin 69.9 L 70.8 L ABG Sodium 131.1 L 130.7 L ABG Potassium ABG Chloride 89.0 L 89.0 L ABG Glucose 211 H 226 H Oxyhemoglobin Carboxyhemoglobin 1.7 H 1.8 H Sodium Potassium Chloride Carbon Dioxide BUN Creatinine Glucose POC Glucose Hemoglobin A1c Lactic Acid Calcium Magnesium Ferritin Total Bilirubin AST ALT Alkaline Phosphatase Lactate Dehydrogenase Total Creatine Kinase C-Reactive Protein Total Protein Albumin Triglycerides Arterial Blood Glucose 211 H 226 H Arterial Blood Ionized Calcium 4.0 L 4.1 L Ur Specific [place] Urine WBC (Auto) Vancomycin Trough Coronavirus (PCR) 12/24/20 12/25/20 12/25/20 23:31 04:04 06:31 WBC RBC Hgb Hct MCHC RDW Plt Count Lymph % (Auto) [place] % (Auto) Lymph # (Auto) [place] # (Auto) Baso # (Auto) Seg Neutrophils % Seg Neuts % (Manual) Lymphocytes % (Manual) Nucleated RBC % Seg Neutrophils # Seg Neutrophils # Man Lymphocytes # (Manual) D-Dimer ABG pH POC ABG pCO2 75.6 H POC ABG pO2 43.3 L ABG pO2 ABG HCO3 ABG O2 Saturation ABG Base Excess ABG Hemoglobin 10.6 L ABG Oxyhemoglobin 77.6 L ABG Sodium 131.4 L ABG Potassium ABG Chloride 90.0 L ABG Glucose 185 H Oxyhemoglobin Carboxyhemoglobin 2.4 H Sodium Potassium Chloride Carbon Dioxide BUN Creatinine Glucose POC Glucose 181 H 153 H Hemoglobin A1c Lactic Acid Calcium Magnesium Ferritin Total Bilirubin AST ALT Alkaline Phosphatase Lactate Dehydrogenase Total Creatine Kinase C-Reactive Protein Total Protein Albumin Triglycerides Arterial Blood Glucose 185 H Arterial Blood Ionized Calcium 4.1 L Ur Specific [place] Urine WBC (Auto) Vancomycin Trough Coronavirus (PCR) 12/25/20 12/25/20 12/25/20 11:17 11:17 11:17 WBC 19.6 H RBC 2.82 L Hgb 8.1 L Hct 25.2 L MCHC RDW 16.2 H Plt Count Lymph % (Auto) [place] % (Auto) Lymph # (Auto) [place] # (Auto) Baso # (Auto) Seg Neutrophils % Seg Neuts % (Manual) Lymphocytes % (Manual) Nucleated RBC % Seg Neutrophils # Seg Neutrophils # Man Lymphocytes # (Manual) D-Dimer ABG pH POC ABG pCO2 POC ABG pO2 ABG pO2 ABG HCO3 ABG O2 Saturation ABG Base Excess ABG Hemoglobin ABG Oxyhemoglobin ABG Sodium ABG Potassium ABG Chloride ABG Glucose Oxyhemoglobin Carboxyhemoglobin Sodium 136 L Potassium Chloride 92.3 L Carbon Dioxide 44 H* BUN Creatinine 0.3 L Glucose 240 H POC Glucose Hemoglobin A1c Lactic Acid Calcium 7.3 L Magnesium Ferritin Total Bilirubin AST ALT Alkaline Phosphatase Lactate Dehydrogenase Total Creatine Kinase C-Reactive Protein Total Protein Albumin Triglycerides 328 H Arterial Blood Glucose Arterial Blood Ionized Calcium Ur Specific [place] Urine WBC (Auto) Vancomycin Trough Coronavirus (PCR) 12/25/20 12/25/20 12/25/20 12:07 17:52 21:49 WBC RBC Hgb Hct MCHC RDW Plt Count Lymph % (Auto) [place] % (Auto) Lymph # (Auto) [place] # (Auto) Baso # (Auto) Seg Neutrophils % Seg Neuts % (Manual) Lymphocytes % (Manual) Nucleated RBC % Seg Neutrophils # Seg Neutrophils # Man Lymphocytes # (Manual) D-Dimer ABG pH POC ABG pCO2 POC ABG pO2 ABG pO2 ABG HCO3 ABG O2 Saturation ABG Base Excess ABG Hemoglobin ABG Oxyhemoglobin ABG Sodium ABG Potassium ABG Chloride ABG Glucose Oxyhemoglobin Carboxyhemoglobin Sodium Potassium Chloride Carbon Dioxide BUN Creatinine Glucose POC Glucose 210 H 188 H 152 H Hemoglobin A1c Lactic Acid Calcium Magnesium Ferritin Total Bilirubin AST ALT Alkaline Phosphatase Lactate Dehydrogenase Total Creatine Kinase C-Reactive Protein Total Protein Albumin Triglycerides Arterial Blood Glucose Arterial Blood Ionized Calcium Ur Specific [place] Urine WBC (Auto) Vancomycin Trough Coronavirus (PCR) 12/25/20 12/26/20 12/26/20 23:47 04:00 05:20 WBC RBC Hgb Hct MCHC RDW Plt Count Lymph % (Auto) [place] % (Auto) Lymph # (Auto) [place] # (Auto) Baso # (Auto) Seg Neutrophils % Seg Neuts % (Manual) Lymphocytes % (Manual) Nucleated RBC % Seg Neutrophils # Seg Neutrophils # Man Lymphocytes # (Manual) D-Dimer ABG pH POC ABG pCO2 73.4 H POC ABG pO2 58.8 L ABG pO2 ABG HCO3 ABG O2 Saturation ABG Base Excess ABG Hemoglobin 7.4 L ABG Oxyhemoglobin ABG Sodium 135.2 L ABG Potassium ABG Chloride 96.0 L ABG Glucose 164 H Oxyhemoglobin Carboxyhemoglobin Sodium Potassium Chloride Carbon Dioxide BUN Creatinine Glucose POC Glucose 138 H 147 H Hemoglobin A1c Lactic Acid Calcium Magnesium Ferritin Total Bilirubin AST ALT Alkaline Phosphatase Lactate Dehydrogenase Total Creatine Kinase C-Reactive Protein Total Protein Albumin Triglycerides Arterial Blood Glucose 164 H Arterial Blood Ionized Calcium 4.1 L Ur Specific [place] Urine WBC (Auto) Vancomycin Trough Coronavirus (PCR) 12/26/20 12/26/20 12/26/20 05:26 05:26 05:26 WBC 16.2 H RBC 2.75 L Hgb 7.8 L Hct 24.1 L MCHC RDW 16.3 H Plt Count 451 H Lymph % (Auto) [place] % (Auto) Lymph # (Auto) [place] # (Auto) Baso # (Auto) Seg Neutrophils % Seg Neuts % (Manual) 87.0 H Lymphocytes % (Manual) Nucleated RBC % 5.0 H Seg Neutrophils # Seg Neutrophils # Man 14.1 H Lymphocytes # (Manual) 0.0 L D-Dimer ABG pH POC ABG pCO2 POC ABG pO2 ABG pO2 ABG HCO3 ABG O2 Saturation ABG Base Excess ABG Hemoglobin ABG Oxyhemoglobin ABG Sodium ABG Potassium ABG Chloride ABG Glucose Oxyhemoglobin Carboxyhemoglobin Sodium Potassium Chloride 95.2 L Carbon Dioxide 44 H* BUN Creatinine 0.2 L Glucose 155 H POC Glucose Hemoglobin A1c Lactic Acid Calcium 7.4 L Magnesium Ferritin Total Bilirubin AST ALT Alkaline Phosphatase Lactate Dehydrogenase Total Creatine Kinase C-Reactive Protein Total Protein 6.0 L Albumin 1.6 L Triglycerides 307 H Arterial Blood Glucose Arterial Blood Ionized Calcium Ur Specific [place] Urine WBC (Auto) Vancomycin Trough Coronavirus (PCR) 12/26/20 12/26/20 12/26/20 11:21 17:26 23:22 WBC RBC Hgb Hct MCHC RDW Plt Count Lymph % (Auto) [place] % (Auto) Lymph # (Auto) [place] # (Auto) Baso # (Auto) Seg Neutrophils % Seg Neuts % (Manual) Lymphocytes % (Manual) Nucleated RBC % Seg Neutrophils # Seg Neutrophils # Man Lymphocytes # (Manual) D-Dimer ABG pH POC ABG pCO2 POC ABG pO2 ABG pO2 ABG HCO3 ABG O2 Saturation ABG Base Excess ABG Hemoglobin ABG Oxyhemoglobin ABG Sodium ABG Potassium ABG Chloride ABG Glucose Oxyhemoglobin Carboxyhemoglobin Sodium Potassium Chloride Carbon Dioxide BUN Creatinine Glucose POC Glucose 127 H 134 H 125 H Hemoglobin A1c Lactic Acid Calcium Magnesium Ferritin Total Bilirubin AST ALT Alkaline Phosphatase Lactate Dehydrogenase Total Creatine Kinase C-Reactive Protein Total Protein Albumin Triglycerides Arterial Blood Glucose Arterial Blood Ionized Calcium Ur Specific [place] Urine WBC (Auto) Vancomycin Trough Coronavirus (PCR) 12/27/20 12/27/20 12/27/20 03:19 05:17 10:52 WBC RBC Hgb Hct MCHC RDW Plt Count Lymph % (Auto) [place] % (Auto) Lymph # (Auto) [place] # (Auto) Baso # (Auto) Seg Neutrophils % Seg Neuts % (Manual) Lymphocytes % (Manual) Nucleated RBC % Seg Neutrophils # Seg Neutrophils # Man Lymphocytes # (Manual) D-Dimer ABG pH POC ABG pCO2 75.0 H POC ABG pO2 74.3 L ABG pO2 ABG HCO3 ABG O2 Saturation ABG Base Excess ABG Hemoglobin 7.3 L ABG Oxyhemoglobin 92.8 L ABG Sodium 135.6 L ABG Potassium ABG Chloride ABG Glucose 151 H Oxyhemoglobin Carboxyhemoglobin 2.0 H Sodium 136 L Potassium Chloride 96.8 L Carbon Dioxide 38 H BUN Creatinine 0.2 L Glucose 139 H POC Glucose 121 H Hemoglobin A1c Lactic Acid Calcium 7.0 L Magnesium Ferritin Total Bilirubin AST 52 H ALT Alkaline Phosphatase Lactate Dehydrogenase Total Creatine Kinase C-Reactive Protein Total Protein 4.7 L D Albumin 1.1 L Triglycerides Arterial Blood Glucose 151 H Arterial Blood Ionized Calcium 4.2 L Ur Specific [place] Urine WBC (Auto) Vancomycin Trough Coronavirus (PCR) 12/27/20 12/27/20 12/27/20 12:02 14:09 17:36 WBC 14.4 H RBC 2.82 L Hgb 8.0 L Hct 25.6 L MCHC 31 L RDW 16.4 H Plt Count 442 H Lymph % (Auto) [place] % (Auto) Lymph # (Auto) [place] # (Auto) Baso # (Auto) Seg Neutrophils % Seg Neuts % (Manual) 36.0 L Lymphocytes % (Manual) 7.0 L Nucleated RBC % 18.0 H Seg Neutrophils # Seg Neutrophils # Man Lymphocytes # (Manual) 1.0 L D-Dimer ABG pH POC ABG pCO2 POC ABG pO2 ABG pO2 ABG HCO3 ABG O2 Saturation ABG Base Excess ABG Hemoglobin ABG Oxyhemoglobin ABG Sodium ABG Potassium ABG Chloride ABG Glucose Oxyhemoglobin Carboxyhemoglobin Sodium Potassium Chloride Carbon Dioxide BUN Creatinine Glucose POC Glucose 126 H 107 H Hemoglobin A1c Lactic Acid Calcium Magnesium Ferritin Total Bilirubin AST ALT Alkaline Phosphatase Lactate Dehydrogenase Total Creatine Kinase C-Reactive Protein Total Protein Albumin Triglycerides Arterial Blood Glucose Arterial Blood Ionized Calcium Ur Specific [place] Urine WBC (Auto) Vancomycin Trough Coronavirus (PCR) 12/27/20 12/28/20 12/28/20 22:58 03:48 05:45 WBC 13.4 H RBC 2.78 L Hgb 7.9 L Hct 25.1 L MCHC RDW 16.4 H Plt Count 484 H Lymph % (Auto) [place] % (Auto) Lymph # (Auto) [place] # (Auto) Baso # (Auto) Seg Neutrophils % Seg Neuts % (Manual) 86.0 H Lymphocytes % (Manual) 2.0 L Nucleated RBC % 2.0 H Seg Neutrophils # Seg Neutrophils # Man 11.5 H Lymphocytes # (Manual) 0.3 L D-Dimer ABG pH POC ABG pCO2 73.1 H POC ABG pO2 66.2 L ABG pO2 ABG HCO3 ABG O2 Saturation ABG Base Excess ABG Hemoglobin 8.9 L ABG Oxyhemoglobin 90.3 L ABG Sodium ABG Potassium 3.3 L ABG Chloride ABG Glucose 107 H Oxyhemoglobin Carboxyhemoglobin 1.6 H Sodium Potassium Chloride Carbon Dioxide BUN Creatinine Glucose POC Glucose 130 H Hemoglobin A1c Lactic Acid Calcium Magnesium Ferritin Total Bilirubin AST ALT Alkaline Phosphatase Lactate Dehydrogenase Total Creatine Kinase C-Reactive Protein Total Protein Albumin Triglycerides Arterial Blood Glucose 107 H Arterial Blood Ionized Calcium 4.4 L Ur Specific [place] Urine WBC (Auto) Vancomycin Trough Coronavirus (PCR) 12/28/20 12/29/20 12/29/20 05:45 04:00 04:00 WBC 18.0 H RBC 2.80 L Hgb 8.0 L Hct 25.3 L MCHC RDW 17.1 H Plt Count 486 H Lymph % (Auto) [place] % (Auto) Lymph # (Auto) [place] # (Auto) Baso # (Auto) Seg Neutrophils % Seg Neuts % (Manual) 83.0 H Lymphocytes % (Manual) 10.0 L Nucleated RBC % 2.0 H Seg Neutrophils # Seg Neutrophils # Man 14.9 H Lymphocytes # (Manual) D-Dimer ABG pH POC ABG pCO2 POC ABG pO2 ABG pO2 ABG HCO3 ABG O2 Saturation ABG Base Excess ABG Hemoglobin ABG Oxyhemoglobin ABG Sodium ABG Potassium ABG Chloride ABG Glucose Oxyhemoglobin Carboxyhemoglobin Sodium Potassium 3.2 L D Chloride Carbon Dioxide 41 H* 38 H BUN Creatinine 0.3 L 0.3 L Glucose 135 H POC Glucose Hemoglobin A1c Lactic Acid Calcium 7.3 L 7.5 L Magnesium Ferritin Total Bilirubin AST ALT Alkaline Phosphatase Lactate Dehydrogenase Total Creatine Kinase C-Reactive Protein Total Protein 6.0 L D 6.1 L Albumin 1.4 L 1.5 L Triglycerides 284 H Arterial Blood Glucose Arterial Blood Ionized Calcium Ur Specific [place] Urine WBC (Auto) Vancomycin Trough Coronavirus (PCR) 12/29/20 12/29/20 12/29/20 04:00 05:42 11:54 WBC RBC Hgb Hct MCHC RDW Plt Count Lymph % (Auto) [place] % (Auto) Lymph # (Auto) [place] # (Auto) Baso # (Auto) Seg Neutrophils % Seg Neuts % (Manual) Lymphocytes % (Manual) Nucleated RBC % Seg Neutrophils # Seg Neutrophils # Man Lymphocytes # (Manual) D-Dimer ABG pH 7.319 L POC ABG pCO2 71.0 H POC ABG pO2 65.2 L ABG pO2 ABG HCO3 ABG O2 Saturation ABG Base Excess ABG Hemoglobin 8.7 L ABG Oxyhemoglobin ABG Sodium ABG Potassium ABG Chloride ABG Glucose 140 H Oxyhemoglobin Carboxyhemoglobin Sodium Potassium Chloride Carbon Dioxide BUN Creatinine Glucose POC Glucose 126 H 128 H Hemoglobin A1c Lactic Acid Calcium Magnesium Ferritin Total Bilirubin AST ALT Alkaline Phosphatase Lactate Dehydrogenase Total Creatine Kinase C-Reactive Protein Total Protein Albumin Triglycerides Arterial Blood Glucose 140 H Arterial Blood Ionized Calcium 4.3 L Ur Specific [place] Urine WBC (Auto) Vancomycin Trough Coronavirus (PCR) 12/29/20 12/29/20 12/30/20 17:54 23:47 04:00 WBC 15.0 H RBC 2.89 L Hgb 8.2 L Hct 26.1 L MCHC RDW 17.3 H Plt Count Lymph % (Auto) 9.2 L [place] % (Auto) Lymph # (Auto) [place] # (Auto) Baso # (Auto) Seg Neutrophils % 87.0 H Seg Neuts % (Manual) Lymphocytes % (Manual) Nucleated RBC % Seg Neutrophils # 13.1 H Seg Neutrophils # Man Lymphocytes # (Manual) D-Dimer ABG pH POC ABG pCO2 POC ABG pO2 ABG pO2 ABG HCO3 ABG O2 Saturation ABG Base Excess ABG Hemoglobin ABG Oxyhemoglobin ABG Sodium ABG Potassium ABG Chloride ABG Glucose Oxyhemoglobin Carboxyhemoglobin Sodium Potassium Chloride Carbon Dioxide BUN Creatinine Glucose POC Glucose 155 H 139 H Hemoglobin A1c Lactic Acid Calcium Magnesium Ferritin Total Bilirubin AST ALT Alkaline Phosphatase Lactate Dehydrogenase Total Creatine Kinase C-Reactive Protein Total Protein Albumin Triglycerides Arterial Blood Glucose Arterial Blood Ionized Calcium Ur Specific [place] Urine WBC (Auto) Vancomycin Trough Coronavirus (PCR) 12/30/20 12/30/20 12/30/20 04:00 04:14 05:25 WBC RBC Hgb Hct MCHC RDW Plt Count Lymph % (Auto) [place] % (Auto) Lymph # (Auto) [place] # (Auto) Baso # (Auto) Seg Neutrophils % Seg Neuts % (Manual) Lymphocytes % (Manual) Nucleated RBC % Seg Neutrophils # Seg Neutrophils # Man Lymphocytes # (Manual) D-Dimer ABG pH POC ABG pCO2 69.3 H POC ABG pO2 61.3 L ABG pO2 ABG HCO3 ABG O2 Saturation ABG Base Excess ABG Hemoglobin 9.1 L ABG Oxyhemoglobin 88.0 L ABG Sodium ABG Potassium ABG Chloride ABG Glucose 159 H Oxyhemoglobin Carboxyhemoglobin 1.8 H Sodium Potassium Chloride Carbon Dioxide 37 H BUN Creatinine 0.3 L Glucose 156 H POC Glucose 141 H Hemoglobin A1c Lactic Acid Calcium 7.6 L Magnesium Ferritin Total Bilirubin AST ALT Alkaline Phosphatase Lactate Dehydrogenase Total Creatine Kinase C-Reactive Protein Total Protein 6.0 L Albumin 1.4 L Triglycerides Arterial Blood Glucose 159 H Arterial Blood Ionized Calcium 4.4 L Ur Specific [place] Urine WBC (Auto) Vancomycin Trough Coronavirus (PCR) 12/30/20 12/30/20 12/30/20 12:18 17:37 23:55 WBC RBC Hgb Hct MCHC RDW Plt Count Lymph % (Auto) [place] % (Auto) Lymph # (Auto) [place] # (Auto) Baso # (Auto) Seg Neutrophils % Seg Neuts % (Manual) Lymphocytes % (Manual) Nucleated RBC % Seg Neutrophils # Seg Neutrophils # Man Lymphocytes # (Manual) D-Dimer ABG pH POC ABG pCO2 POC ABG pO2 ABG pO2 ABG HCO3 ABG O2 Saturation ABG Base Excess ABG Hemoglobin ABG Oxyhemoglobin ABG Sodium ABG Potassium ABG Chloride ABG Glucose Oxyhemoglobin Carboxyhemoglobin Sodium Potassium Chloride Carbon Dioxide BUN Creatinine Glucose POC Glucose 147 H 167 H 141 H Hemoglobin A1c Lactic Acid Calcium Magnesium Ferritin Total Bilirubin AST ALT Alkaline Phosphatase Lactate Dehydrogenase Total Creatine Kinase C-Reactive Protein Total Protein Albumin Triglycerides Arterial Blood Glucose Arterial Blood Ionized Calcium Ur Specific [place] Urine WBC (Auto) Vancomycin Trough Coronavirus (PCR) 12/31/20 12/31/20 12/31/20 04:00 05:32 06:19 WBC RBC Hgb Hct MCHC RDW Plt Count Lymph % (Auto) [place] % (Auto) Lymph # (Auto) [place] # (Auto) Baso # (Auto) Seg Neutrophils % Seg Neuts % (Manual) Lymphocytes % (Manual) Nucleated RBC % Seg Neutrophils # Seg Neutrophils # Man Lymphocytes # (Manual) D-Dimer ABG pH 7.316 L POC ABG pCO2 POC ABG pO2 ABG pO2 56.9 L ABG HCO3 38.0 H ABG O2 Saturation 90.4 L ABG Base Excess 11.1 H ABG Hemoglobin 5.1 L ABG Oxyhemoglobin ABG Sodium ABG Potassium ABG Chloride ABG Glucose Oxyhemoglobin 87.7 L Carboxyhemoglobin Sodium Potassium Chloride Carbon Dioxide 37 H BUN Creatinine 0.3 L Glucose 152 H POC Glucose 158 H Hemoglobin A1c Lactic Acid Calcium 7.3 L Magnesium Ferritin Total Bilirubin AST ALT Alkaline Phosphatase Lactate Dehydrogenase Total Creatine Kinase C-Reactive Protein Total Protein 6.1 L Albumin 1.4 L Triglycerides Arterial Blood Glucose Arterial Blood Ionized Calcium Ur Specific [place] Urine WBC (Auto) Vancomycin Trough Coronavirus (PCR) 12/31/20 12/31/20 12/31/20 12:22 18:17 23:37 WBC RBC Hgb Hct MCHC RDW Plt Count Lymph % (Auto) [place] % (Auto) Lymph # (Auto) [place] # (Auto) Baso # (Auto) Seg Neutrophils % Seg Neuts % (Manual) Lymphocytes % (Manual) Nucleated RBC % Seg Neutrophils # Seg Neutrophils # Man Lymphocytes # (Manual) D-Dimer ABG pH POC ABG pCO2 POC ABG pO2 ABG pO2 ABG HCO3 ABG O2 Saturation ABG Base Excess ABG Hemoglobin ABG Oxyhemoglobin ABG Sodium ABG Potassium ABG Chloride ABG Glucose Oxyhemoglobin Carboxyhemoglobin Sodium Potassium Chloride Carbon Dioxide BUN Creatinine Glucose POC Glucose 131 H 136 H 139 H Hemoglobin A1c Lactic Acid Calcium Magnesium Ferritin Total Bilirubin AST ALT Alkaline Phosphatase Lactate Dehydrogenase Total Creatine Kinase C-Reactive Protein Total Protein Albumin Triglycerides Arterial Blood Glucose Arterial Blood Ionized Calcium Ur Specific [place] Urine WBC (Auto) Vancomycin Trough Coronavirus (PCR) 12/31/20 01/01/21 01/01/21 Unknown 04:50 05:10 WBC 16.2 H RBC 2.89 L Hgb 8.0 L Hct 25.9 L MCHC 31 L RDW 18.2 H Plt Count 458 H Lymph % (Auto) [place] % (Auto) Lymph # (Auto) [place] # (Auto) Baso # (Auto) Seg Neutrophils % Seg Neuts % (Manual) 96.0 H Lymphocytes % (Manual) 3.0 L Nucleated RBC % 3.0 H Seg Neutrophils # Seg Neutrophils # Man 15.6 H Lymphocytes # (Manual) 0.5 L D-Dimer ABG pH 7.268 L POC ABG pCO2 POC ABG pO2 ABG pO2 56.9 L ABG HCO3 38.8 H ABG O2 Saturation 85.5 L ABG Base Excess 10.7 H ABG Hemoglobin 6.4 L ABG Oxyhemoglobin ABG Sodium ABG Potassium ABG Chloride ABG Glucose Oxyhemoglobin 82.8 L Carboxyhemoglobin Sodium Potassium Chloride Carbon Dioxide BUN Creatinine Glucose POC Glucose 143 H Hemoglobin A1c Lactic Acid Calcium Magnesium Ferritin Total Bilirubin AST ALT Alkaline Phosphatase Lactate Dehydrogenase Total Creatine Kinase C-Reactive Protein Total Protein Albumin Triglycerides Arterial Blood Glucose Arterial Blood Ionized Calcium Ur Specific [place] Urine WBC (Auto) Vancomycin Trough Coronavirus (PCR)
[2021-01-01] MEDS: POLYETHYLENE GLYCOL 3350 17 GM POWDER PO SCH (10:18)
[2021-01-01] MEDS: FAMOTIDINE 20 MG TAB PO SCH ×2 (10:18→21:46)
[2021-01-01] MEDS: DOCUSATE SODIUM 100 MG/10 ML ORAL LIQD PO SCH ×2 (10:18→21:46)
--- NOTE | 2021-01-01 10:51 | Progress Note ---
Assessment and Plan Assessment and plan: 59-year-old female who is smoker who presented to [facility] with shortness of breath cough fever weakness for 1 to 2 days prior to arrival. Per EMS the patient was severely hypoxic with saturations in the low 80s. With all oxygen and nonrebreather came down to low 90s. ID, pulmonary, CCM were consulted. Septic Shock Coag Negative staph/Entrococcus bactermia MRSA/Klebsiella in sputum COVID-19 pneumonia Acute hypoxic hypercapnic respiratory failure Bilateral pneumothorax Pneumomediastinum with subcutaneous emphysema Elevated D-dimer Transaminitis secondary to Covid 19 Klebsiella pneumonia Type 2 diabetes mellitus Severe protien calorie malnutrition secondary to critical illness Metabolic alkalosis Hypercapnia 2/: Patient continues on BiPAP throughout the night. Labs are remarkable for hypoxia with improving renal function but lactic acidosis without fever. CTA has been ordered to rule out pulmonary embolism. I agree with increasing enoxaparin to twice daily full dose for empiric treatment of pulmonary embolism. Will obtain ID consultation on further evaluation for possible underlying pneumonia versus COVID-19. We will also obtain echocardiogram for evaluation. Will discontinue fluids at this time. 2/2; Continue supportive care, Patient remains with very guarded prognosis, remains on BiPAP, continues on Remdesivir, and steroids. Will continue anticoagulation, unable to get CTA Chest due to patients unstable clinical status. Will adjust insulin for better blood glucose 2/3: Continues on BIPAP, no clear improvement at this time. Will continue steroids therapy Remdesivir and also Full anticoagulation at this time. Will update family. Discussed with Aerial Hurricane Hunter. 2/4: Taking a break from the BiPAP on high flow and nonrebreather 100% with saturation of 90% becomes hypoxic with any movement. Aerial Hurricane Hunter input noted will get a dose of Lasix today. Will await a discussion with ID for possibly increasing steroid. I updated Patient's Cousin, Tayla Esquivel who is the emergency contact center rep. Blood sugar remains fluctuating secondary to steriods, Encouraged Prone positioning. Noted with mild hyponatremia we will continue to monitor and manage 2/5: Continue supportive care wean oxygen as tolerated prognosis remains guarded. Encouraged to progress as tolerated. Awaiting labs today. Discussed with nursing staff and patient at bedside. 2/6: Discontinued Dexamethasone as Solumedrol started secondary to increased oxygen demand. Will give additional insulin for better control. Continue oxygen support patient still on high flow. Prognosis still guarded 11/22: Patient was intubated and placed on mechanical ventilation. Continue current medication. Will check a.m. labs today. Noted still with hypotension. Doubt septic shock at this time as patient has no new fever. Will adjust insulin for better blood sugar control. 11/23: Patient admitted with COVID-19 despite all efforts patient remains severely hypoxic and now is intubated. Aerial Hurricane Hunter input noted. Blood pressure marginal at this time. Very poor prognosis. Continue Solu-Medrol. 11/24. Patient remains very hypoxic. Blood pressure borderline. Plan for initiation of paralytic agents as per operation agent. Patient may need to be transferred if no improvement. 11/26. Off paralytics. Remains intubated. On steroids. Prognosis is poor. 11/27. Chest xray shows pneumomediastinum and subcutaneous emphysema. Surgery con sulted. Plan for chest tube placement. Sputum culture grew MRSA. Patient started on vancomycin per ID. 11/28. Right chest tube placed yesterday by surgery. Repeat chest x-ray showed left small pneumothorax. Plan for chest tube placement on the left today. Remains on paralytic agents. 11/29. Remains intubated on vent. Had left chest tube placed yesterday. Vitals reviewed. Critical care following 11/30/ Remains on mechanical ventilation. Worsening hypoxia. Bilateral chest tubes in place. Vitals reviewed. Labs reviewed 12/01: Chest tube and mechanical ventilation remains in place, poor prognosis, FIO2 remains at 90%, adjust insulin for better blood glucose control 12/02: Patient remains on full ventilatory support and steroids, still with worsening leukocytosis ?inflammatory or infectious vs steroids. Continue vancomycin. 12/03; slowly weaning, 12/04: Still on the vent FiO2 down to 65% PEEP remains at 18. Still with poor prognosis. 12/05: Patient continues on full ventilatory support per operation agent PEEP remains at 18. Still with hypercapnic respiratory failure. FiO2 down to 60% this morning. Chest tube to suction still weaning off steroids in the deliberation ongoing for possible a third chest tube as last documentation by surgery shows no plan for it at this time. Continue to manage insulin for better blood sugar control. 12/06:weaned down to 60%, continue supportive care, unable to wean, 12/07; patient remains intubated on ventilatory support, chest tubes in place trach and PEG when patient's Covid test is negative,Per surgery. 12/08; Patient remains intubated remains with hypercapnia and hypoxia. Chest tube still remain in place. He is off antibiotics at this time. Continue steroids which is likely resultant to the leukocytosis. Aerial Hurricane Hunter and surgeon following ID input is noted. Prognosis remains guarded to poor 12/10; patient remains intubated on vent, unable to wean awaiting trach and PEG when Covid test is negative, Continue current management 12/11; patient awaiting trach and PEG when Covid test is negative, vent dependent, poor prognosis 12/12; clinically no change, vent dependent, Patient is critically ill with very poor prognosis, awaiting trach and PEG when COVID-19 test turns negative. Plan discussed with nursing staff. Caregivers have discussed with patient's family periodically 12/13: Patient is critically ill with very poor prognosis, awaiting trach and PEG when COVID-19 test turns negative. Plan discussed with nursing staff. Caregivers have discussed with patient's family periodically 12/14: Increase UOP which we will monitor and replete as needed. Patient remain hypoxemic on ABG despite 100 FiO2, remains on fentanyl, precedex, versed and levo gtt. 12/15: Patient remains sedated on fentanyl at 3 mcg, Versed at 30 mg, dexamethasone 0.3 and was on Levophed 6 mcg this morning. Patient's vent settings rate of 30, tidal volume 425, PEEP of 18, FiO2 of 85. RT attempted to wean as tolerated. No acute events reported overnight. Bilateral chest tubes to wall suction. 12/16: Overnight the patient was noted to be bradycardic, Precedex drip was increased to 0.6/fentanyl to 4 mcg/Versed 5 mg, bilateral chest tube to suction. Current vent settings for 425/30/18/0.75, RT to wean as tolerated 12/17: Patient's T-max overnight was 101.2, obtain CXR today, blood culture x2 per ID. Patient remains on fentanyl, Versed, Precedex and Levophed. Current vent settings AC 425/30/18/0.75, RT to wean as tolerated. Continue steroid taper. 12/18: Patient remains sedated on fentanyl, Versed, Precedex and has vasopressor support of Levophed, current vent settings 425/30/18/0.75 with bilateral chest tubes to wall suction. Patient's blood culture from 12/17 grew gram-positive cocci in pairs and chains however the patient is on vancomycin and cefepime. We will continue to follow for speciation and sensitivity. 12/19: Unfortunately remains on full ventilatory support prognosis remains very poor. No new fever however since 12/17. Continue to follow cultures not finalized yet. Antibiotics per ID critical care management input noted. Patient remains on high FiO2 and PEEP at this time. 12/20: Still with intermittent fever, likely secondary to covid 19, still with hyponatremia, continue with tube feed. cultures with coagulas negative staph, await further ID input. Continues on abx. 12/21: Patient remains on fentanyl, Precedex, Versed and Levophed and assist control for 25/30/18/.100 with bilateral chest tubes in place. Patient remains on antibiotic therapy. No acute events reported overnight. 12/22: Patient remains sedated on Precedex and fentanyl and on vasopressor support, blood cultures grew coag negative Staphylococcus and Enterococcus and antibiotic therapy was deescalated to ampicillin by infectious disease. This morning patient was on assist control for 25/30/18/0.100 and respiratory therapy to decrease FiO2 as tolerated. 12/23: Patient remains sedated on Versed, fentanyl, propofol, dexamethasone and vasopressor support with Levophed. Patient is on ampicillin with a T-max of 99 and current vent settings assist-control 425/30/18/0.90 which is being weaned as tolerated by RT. Patient bowel regimen escalated. 12/24: Patient was febrile overnight to 102, remains sedated on Versed, fentanyl, propofol and Precedex and on respiratory support with Levophed. This morning at the time my examination patient was on assist control 425/30/18/0.100. Patient's bowel regimen was escalated. This afternoon patient SPO2 dropped into the upper 60s and low 70s, patient was removed off the ventilator and bagged by RT with improvement in his SPO2 to mid 70s and his ventilator settings were adju sted with an increase in PEEP to 22 and reduction in tidal volume. Patient remained with SPO2 in the 70s to 80s then suddenly dropped his SPO2 again. A CXR was obtained and patient received 40 mg of IV Lasix. CXR showed pneumothorax and general surgery was consulted for chest tube placement. Harmony vergara's existing right chest tube was replaced after removal. During chest tube was placed on the right side and a repeat CXR is being performed. Dr. German and Dr. Henry were kept up to date throughout the process and Dr. Henry was at beside during this time. I attempted to call Kehinde but was unable to contact him but left a voicemail. Jd was called and informed of changes with translation provided by Tayla. I spoke to them on the phone for over 30 minutes and explained the situation. They did not wish to change his CODE STATUS. Per CCM the patient respikes his temperature over the next 24 hours we will reculture his urine and blood. Patient remains on antibiotic therapy for 1 4 days per infectious disease 01/04/2021. Repeat blood cultures are negative. 12/25: Patient developed subcu emphysema on right chest and a repeat CXR shows minimal pneumothorax on the right chest wall which has not increased in size. At the time of my examination patient was on assist control 400/30/18/0.100 and the subcutaneous emphysema was noted after the patient's PEEP was increased. Patient remains sedated on Versed, fentanyl, Precedex and propofol with vasopressor support of Levophed. Patient's family decided to make the patient an AND and his CODE STATUS was updated. We will continue supportive care. Infectious disease has escalated antibiotic therapy to Zosyn. 12/26. Remains mechanically ventilated. On AC 30/400/100% PEEP 22. Not responsive. Sedated. On pressors. Labs reviewed. On antibiotics. 12/27. No change in medical condition. Remains on AC 30/40/1 100% PEEP of 22. Sedated and on pressors. On antibiotics-Zosyn. ID and critical care on board. General surgery also following for management of chest tubes. Prognosis is very poor 12/28: Patient remains sedated on Versed, fentanyl, propofol and Precedex and has vasopressor support with Levophed quad strength at 22. Patient subcu air seems to be bilateral in his upper chest. At the time my examination patient is on 400/30/22/.95 and RT will wean his vent 0.90. Patient still has leukocytosis, metabolic alkalosis, hypokalemia. 12/29: Patient remains sedated on Versed, fentanyl, Precedex and propofol with va sopressor support with Levophed. Patient remains on assist control 400/30/22/0.90 and still [place] ptosis. Patient hypokalemia has resolved 12/30: Remains sedated on propofol, Versed, fentanyl, Precedex and on Levophed. Current vent settings assist-control 400/30/22/0.80 and improving leukocytosis and metabolic alkalosis. He will complete Zosyn today. No acute events reported overnight. Patient's urine output has decreased over the past couple days and we will continue to monitor. 12/31: Patient remains intubated on mechanical ventilation. Continue RASS goal - 4 per CCM. Continue Zosyn per ID recommendations with completion of antibiotics tomorrow. Patient with extremely poor prognosis and agree with DNR status. 01/01: Patient currently on AC/PRVC mode rate 30, tidal volume 400, FiO2 100% and PEEP of 22. Patient currently with sedation of dipper Van, fentanyl and Versed. Patient requiring pressors of Levophed. Currently chest tubes to suction and repeat chest x-ray on Monday. Wean FiO2 as tolerated. Guarded prognosis. The high probability of a clinically significant, sudden or life threatening deterioration of the [cardiac, respiratory and neurological] system(s) required my full and direct attention, intervention and personal management. The aggregate critical care time was [33] minutes. This time is in addition to time spent performing reported procedures but includes the following: [x] Data Review and interpretation [x] Patient assessment and monitoring of vital signs [x] Documentation [x] Medication orders and management History Interval history: No new issues overnight Hospitalist Physical - Constitutional Vitals: Temp Pulse Resp BP Pulse Ox 98.4 F 116 H 30 H 108/64 97 01/01/21 08:00 01/01/21 10:00 01/01/21 10:00 01/01/21 10:00 01/01/21 10:00 General appearance: Present: no acute distress, other (comatose) - EENT Eyes: Present: PERRL, EOM intact ENT: hearing intact, clear oral mucosa, dentition normal - Neck Neck: Present: supple, normal ROM - Respiratory Respiratory effort: normal Respiratory: bilateral: CTA - Cardiovascular Rhythm: regular Heart Sounds: Present: S1 & S2. Absent: gallop, rub - Extremities Extremities: no ischemia, No edema, Full ROM - Abdominal General gastrointestinal: soft, non-tender, non-distended, normal bowel sounds - Integumentary Integumentary: Present: clear, warm, dry - Neurologic Neurologic: CNII-XII intact, moves all extremities HEART Score - HEART Score Troponin: Troponin T < 0.010 ng/mL (0.00-0.029) 12/11/20 06:30 Results - Labs CBC & Chem 7: 12/31/20 Unknown 12/31/20 04:00 Labs: Laboratory Last Values WBC 16.2 K/mm3 (4.5-11.0) H 12/31/20 Unknown RBC 2.89 M/mm3 (3.65-5.03) L 12/31/20 Unknown Hgb 8.0 gm/dl (11.8-15.2) L 12/31/20 Unknown Hct 25.9 % (35.5-45.6) L 12/31/20 Unknown MCV 90 fl (84-94) 12/31/20 Unknown MCH 28 pg (28-32) 12/31/20 Unknown MCHC 31 % (32-34) L 12/31/20 Unknown RDW 18.2 % (13.2-15.2) H 12/31/20 Unknown Plt Count 458 K/mm3 (140-440) H 12/31/20 Unknown Lymph % (Auto) 9.2 % (13.4-35.0) L 12/30/20 04:00 [place] % (Auto) 2.9 % (0.0-7.3) 12/30/20 04:00 Eos % (Auto) 0.6 % (0.0-4.3) 12/30/20 04:00 Baso % (Auto) 0.3 % (0.0-1.8) 12/30/20 04:00 Lymph # (Auto) 1.4 K/mm3 (1.2-5.4) 12/30/20 04:00 [place] # (Auto) 0.4 K/mm3 (0.0-0.8) 12/30/20 04:00 Eos # (Auto) 0.1 K/mm3 (0.0-0.4) 12/30/20 04:00 Baso # (Auto) 0.0 K/mm3 (0.0-0.1) 12/30/20 04:00 Add Manual Diff Complete 12/31/20 Unknown Total Counted 100 12/31/20 Unknown Seg Neutrophils % 87.0 % (40.0-70.0) H 12/30/20 04:00 Seg Neuts % (Manual) 96.0 % (40.0-70.0) H 12/31/20 Unknown Band Neutrophils % 2.0 % 12/28/20 05:45 Lymphocytes % (Manual) 3.0 % (13.4-35.0) L 12/31/20 Unknown Monocytes % (Manual) 4.0 % (0.0-7.3) 12/29/20 04:00 Eosinophils % (Manual) 2.0 % (0.0-4.3) 12/28/20 05:45 Metamyelocytes % 3.0 % 12/29/20 04:00 Myelocytes % 1.0 % 12/31/20 Unknown Nucleated RBC % 3.0 % (0.0-0.9) H 12/31/20 Unknown Seg Neutrophils # 13.1 K/mm3 (1.8-7.7) H 12/30/20 04:00 Seg Neutrophils # Man 15.6 K/mm3 (1.8-7.7) H 12/31/20 Unknown Band Neutrophils # 0.0 K/mm3 12/31/20 Unknown Lymphocytes # (Manual) 0.5 K/mm3 (1.2-5.4) L 12/31/20 Unknown Abs React Lymphs (Man) 0.0 K/mm3 12/31/20 Unknown Monocytes # (Manual) 0.0 K/mm3 (0.0-0.8) 12/31/20 Unknown Eosinophils # (Manual) 0.0 K/mm3 (0.0-0.4) 12/31/20 Unknown Basophils # (Manual) 0.0 K/mm3 (0.0-0.1) 12/31/20 Unknown Metamyelocytes # 0.0 K/mm3 12/31/20 Unknown Myelocytes # 0.2 K/mm3 12/31/20 Unknown Promyelocytes # 0.0 K/mm3 12/31/20 Unknown Blast Cells # 0.0 K/mm3 12/31/20 Unknown WBC Morphology Not Reportable 12/31/20 Unknown Hypersegmented Neuts Not Reportable 12/31/20 Unknown Hyposegmented Neuts Not Reportable 12/31/20 Unknown Hypogranular Neuts Not Reportable 12/31/20 Unknown Smudge Cells Not Reportable 12/31/20 Unknown Toxic Granulation Not Reportable 12/31/20 Unknown Toxic Vacuolation Not Reportable 12/31/20 Unknown Dohle Bodies Not Reportable 12/31/20 Unknown Pelger-Huet Anomaly Not Reportable 12/31/20 Unknown Tony Rods Not Reportable 12/31/20 Unknown Platelet Estimate Consistent w auto 12/31/20 Unknown Clumped Platelets Not Reportable 12/31/20 Unknown Plt Clumps, EDTA Not Reportable 12/31/20 Unknown Large Platelets Not Reportable 12/31/20 Unknown Giant Platelets Not Reportable 12/31/20 Unknown Platelet Satelliting Not Reportable 12/31/20 Unknown Plt Morphology Comment Not Reportable 12/31/20 Unknown RBC Morphology Not Reportable 12/31/20 Unknown Dimorphic RBCs Not Reportable 12/31/20 Unknown Polychromasia Not Reportable 12/31/20 Unknown Hypochromasia Not Reportable 12/31/20 Unknown Poikilocytosis Not Reportable 12/31/20 Unknown Anisocytosis 1+ 12/31/20 Unknown Microcytosis Not Reportable 12/31/20 Unknown Macrocytosis Not Reportable 12/31/20 Unknown Spherocytes Not Reportable 12/31/20 Unknown Pappenheimer Bodies Not Reportable 12/31/20 Unknown Sickle Cells Not Reportable 12/31/20 Unknown Target Cells Not Reportable 12/31/20 Unknown Tear Drop Cells Not Reportable 12/31/20 Unknown Ovalocytes Not Reportable 12/31/20 Unknown Stomatocytes Rare 12/27/20 14:09 Helmet Cells Not Reportable 12/31/20 Unknown [place] Bodies Not Reportable 12/31/20 Unknown Pinson Rings Not Reportable 12/31/20 Unknown Henrry Cells Not Reportable 12/31/20 Unknown Bite Cells Not Reportable 12/31/20 Unknown Crenated Cell Not Reportable 12/31/20 Unknown Elliptocytes Not Reportable 12/31/20 Unknown Acanthocytes (Spur) Not Reportable 12/31/20 Unknown Rouleaux Not Reportable 12/31/20 Unknown Hemoglobin C Crystals Not Reportable 12/31/20 Unknown Schistocytes Not Reportable 12/31/20 Unknown Malaria parasites Not Reportable 12/31/20 Unknown Yovani Bodies Not Reportable 12/31/20 Unknown Hem Pathologist Commnt No 12/31/20 Unknown D-Dimer 926.11 ng/mlDDU (0-234) H 11/26/20 06:04 ABG pH 7.268 pH Units (7.350-7.450) L 01/01/21 04:50 POC ABG pCO2 69.3 mmHg (32.0-48.0) H 12/30/20 04:14 ABG pCO2 86.9 mm Hg 01/01/21 04:50 POC ABG pO2 61.3 mmHg (83-108) L 12/30/20 04:14 ABG pO2 56.9 mm Hg (80.0-90.0) L 01/01/21 04:50 POC ABG HCO3 36 12/30/20 04:14 ABG HCO3 38.8 mmol/L (20.0-26.0) H 01/01/21 04:50 ABG O2 Saturation 85.5 % (95.0-99.0) L 01/01/21 04:50 ABG O2 Content 7.5 (0.0-44) 01/01/21 04:50 POC ABG Base Excess 8.5 12/30/20 04:14 ABG Base Excess 10.7 mmol/L (-2.0-3.0) H 01/01/21 04:50 ABG Hemoglobin 6.4 gm/dl (14.0-18.0) L 01/01/21 04:50 ABG Oxyhemoglobin 88.0 (94-98) L 12/30/20 04:14 ABG Carboxyhemoglobin 2.8 % (0.0-5.0) 01/01/21 04:50 ABG Methemoglobin 0.4 % (0.0-1.5) 01/01/21 04:50 ABG Sodium 139.4 mmol/L (136.0-145.0) 12/30/20 04:14 ABG Potassium 3.8 mmol/L (3.40-4.50) 12/30/20 04:14 ABG Chloride 103.0 mmol/L (98-107) 12/30/20 04:14 ABG Glucose 159 mg/dL (65-95) H 12/30/20 04:14 Oxyhemoglobin 82.8 % (95.0-99.0) L 01/01/21 04:50 Carboxyhemoglobin 1.8 (0.5-1.5) H 12/30/20 04:14 FiO2 80 % 01/01/21 04:50 FiO2 % 80 12/30/20 04:14 Sodium 144 mmol/L (137-145) 12/31/20 04:00 Potassium 3.8 mmol/L (3.6-5.0) 12/31/20 04:00 Chloride 103.5 mmol/L (98-107) 12/31/20 04:00 Carbon Dioxide 37 mmol/L (22-30) H 12/31/20 04:00 Anion Gap 7 mmol/L 12/31/20 04:00 BUN 16 mg/dL (9-20) 12/31/20 04:00 Creatinine 0.3 mg/dL (0.8-1.3) L 12/31/20 04:00 Estimated GFR > 60 ml/min 12/31/20 04:00 BUN/Creatinine Ratio 53 % 12/31/20 04:00 Glucose 152 mg/dL (75-100) H 12/31/20 04:00 POC Glucose 143 mg/dL (70-105) H 01/01/21 05:10 Hemoglobin A1c 11.7 % (4-6) H 11/16/20 05:29 Lactic Acid 2.60 mmol/L (0.7-2.0) H* 11/16/20 05:29 Calcium 7.3 mg/dL (8.4-10.2) L 12/31/20 04:00 Phosphorus 2.60 mg/dL (2.5-4.5) 12/17/20 17:25 Magnesium 1.60 mg/dL (1.7-2.3) L 12/17/20 17:25 Ferritin 778.8 ng/mL (30.0-300.0) H 11/26/20 04:00 Total Bilirubin 0.30 mg/dL (0.1-1.2) 12/31/20 04:00 AST 23 units/L (5-40) 12/31/20 04:00 ALT 23 units/L (7-56) 12/31/20 04:00 Alkaline Phosphatase 107 units/L (35-129) 12/31/20 04:00 Lactate Dehydrogenase 288 units/L (91-180) H 11/26/20 04:00 Total Creatine Kinase 47 units/L (55-170) L 12/17/20 17:25 CK-MB (CK-2) 1.8 ng/mL (0.0-4.0) 12/17/20 17:25 CK-MB (CK-2) Rel Index 3.8 (0-4) 12/17/20 17:25 Troponin T < 0.010 ng/mL (0.00-0.029) 12/11/20 06:30 C-Reactive Protein 1.40 mg/dL (0.00-1.30) H 11/26/20 04:00 NT-Pro-B Natriuret Pep 107.2 pg/mL (0-900) 11/17/20 10:21 Total Protein 6.1 g/dL (6.3-8.2) L 12/31/20 04:00 Albumin 1.4 g/dL (3.9-5) L 12/31/20 04:00 Albumin/Globulin Ratio 0.3 % 12/31/20 04:00 Triglycerides 284 mg/dL (2-149) H 12/29/20 04:00 Procalcitonin 0.16 ng/mL (<0.15) 12/12/20 05:16 Arterial Blood Glucose 159 mg/dL (65-95) H 12/30/20 04:14 Arterial Blood Ionized Calcium 4.4 mg/dL (4.6-5.3) L 12/30/20 04:14 Urine Color Yellow (Yellow) 12/21/20 Unknown Urine Turbidity Cloudy (Clear) 12/21/20 Unknown Urine pH 6.0 (5.0-7.0) 12/21/20 Unknown Ur Specific [place] 1.013 (1.003-1.030) 12/21/20 Unknown Urine Protein <15 mg/dl mg/dL (Negative) 12/21/20 Unknown Urine Glucose (UA) Neg mg/dL (Negative) 12/21/20 Unknown Urine Ketones Neg mg/dL (Negative) 12/21/20 Unknown Urine Blood Neg (Negative) 12/21/20 Unknown Urine Nitrite Neg (Negative) 12/21/20 Unknown Urine Bilirubin Neg (Negative) 12/21/20 Unknown Urine Urobilinogen < 2.0 mg/dL (<2.0) 12/21/20 Unknown Ur Leukocyte Esterase Mod (Negative) 12/21/20 Unknown Urine WBC (Auto) 172.0 /HPF (0.0-6.0) H 12/21/20 Unknown Urine RBC (Auto) > 182.0 /HPF (0.0-6.0) 12/21/20 Unknown U Epithel Cells (Auto) 3.0 /HPF (0-13.0) 12/21/20 Unknown Urine Bacteria (Auto) 2+ /HPF (Negative) 12/21/20 Unknown Ur Renal Epithelial Cell <1 /LPF 12/21/20 Unknown Urine Mucus 2+ /HPF 12/21/20 Unknown Urine Yeast (Budding) 3+ /HPF 12/21/20 Unknown Vancomycin Trough 16.9 ug/mL (5.0-20.0) 12/19/20 15:46 Coronavirus (PCR) Positive (Negative) A 12/13/20 10:00 Hepatitis A IgM Ab Non-reactive (NonReactive) 12/17/20 21:40 Hep Bs Antigen Non-reactive (Negative) 12/17/20 21:40 Hep B Core IgM Ab Non-reactive (NonReactive) 12/17/20 21:40 Hepatitis C Antibody Non-reactive (NonReactive) 12/17/20 21:40 HIV 1&2 Antibody Rapid Non react (Non React) 12/17/20 21:40 HIV P24 Antigen Non react (Non React) 12/17/20 21:40 - Diagnostic Impressions Diagnostic Impressions: Echocardiogram 11/16/20 10:34 Transthoracic Echocardiogram Indication: Shortness of breath-COVID BP: 108/77 HR: 92 Conclusions *Global left ventricular systolic function is normal. *The estimated ejection fraction is 60-65%. *Mild to moderate concentric left ventricular hypertrophy is observed. *There is trace of mitral regurgitation. *There is mild to moderate tricuspid regurgitation. *There is evidence of mild pulmonary hypertension. *The right ventricular systolic pressure is calculated at 31 mmHg. Findings Left Ventricle: The left ventricular chamber size is normal. Mild to moderate concentric left ventricular hypertrophy is observed. Global left ventricular systolic function is normal. The estimated ejection fraction is 60-65%. Left Atrium: The left atrial chamber size is normal. Right Ventricle: The right ventricular cavity size is normal. The right ventricular global systolic function is normal. Right Atrium: The right atrial cavity size is normal. Aortic Valve: The aortic valve is trileaflet. There is no evidence of aortic regurgitation. There is no evidence of aortic stenosis. Mitral Valve: The mitral valve leaflets appear normal. There is trace of mitral regurgitation. There is no evidence of mitral stenosis. Tricuspid Valve: The tricuspid valve leaflets are normal. There is mild to moderate tricuspid regurgitation. The right ventricular systolic pressure is calculated at 31 mmHg. There is evidence of mild pulmonary hypertension. Pulmonic Valve: There is trace pulmonic regurgitation. Pericardium: There is no pericardial effusion. Aorta: There is no dilatation of the ascending aorta. There is no dilatation of the aortic root. Venous: The inferior vena cava appears normal in size. Measurements Chambers 2D Name Value Normal Range IVSd (2D) 0.81 cm (0.6 - 1.1) LVPWd (2D) 0.79 cm (0.6 - 1.1) LVIDd (2D) 4.22 cm (3.7 - 5.6) LVIDs (2D) 3.1 cm (2 - 3.8) LV FS (2D) 26.71 % - EF Teichholz (2D) 52.55 % - Ao root diameter (2D) 3.34 cm (2 - 3.7) Volumes/Mass Name Value Normal Range LA ESV SP 4CH (A/L) 10.87 ml - LA ESV SP 2CH (A/L) 18.74 ml - LA ESV BP (A/L) 16.38 ml - LA ESV BP (A/L) index 8.62 ml/m2 - LA ESV SP 4CH (MOD) 10.32 ml - LA ESV SP 2CH (MOD) 17.66 ml - LA ESV BP (MOD) 15.12 ml - LA ESV BP (MOD) index 7.96 ml/m2 - Diastolic/Systolic Function Name Value Normal Range MV E-wave Vmax 0.76 m/sec - MV deceleration time 133.63 msec - MV A-wave Vmax 1.1 m/sec - MV E:A ratio 0.69 ratio - Aortic Valve Name Value Normal Range AV Vmax 1.44 m/sec - AV VTI 22.94 cm - AV peak gradient 8.33 mmHg - AV mean gradient 4.73 mmHg - LVOT diameter 2.2 cm - LVOT Vmax 1.04 m/sec - LVOT VTI 18.88 cm - LVOT peak gradient 4.34 mmHg - LVOT mean gradient 2.31 mmHg - SV LVOT 72.05 ml - EVANGELISTA (continuity Vmax) 2.75 cm2 - EVANGELISTA (continuity VTI) 3.14 cm2 - Tricuspid Valve Name Value Normal Range TR Vmax 2.64 m/sec - TR peak gradient 28 mmHg - RAP 3 mmHg - RVSP 31 mmHg - Gupta/IV: Voiding Method Indwelling Catheter IV Catheter Type [Left Peripheral IV Antecubital] Active Medications - Current Medications Current Medications: Generic Name Dose Route Start Last Admin Trade Name Freq PRN Reason Stop Dose Admin Acetaminophen 650 mg 11/15/20 23:55 12/25/20 07:24 Acetaminophen 325 Mg Tab PO 650 mg Q4H PRN Administration Pain MILD(1-3)/Fever >100.5/BUTTS Lipase/Protease/Amylase 1 each 11/23/20 11:53 12/05/20 23:45 Lipase 10,500/Protease 25,000/Amylase 43,750 (Units) Dr Slater FEEDTUBE 1 each PRN PRN Administration For Clogged Feeding Tube Dextrose 25 ml 12/10/20 05:21 12/28/20 12:18 Dextrose 50% In Water (25gm) 50 Ml Syringe IV 10 ml Q30MIN PRN Administration Hypoglycemia Protocol Docusate Sodium 100 mg 12/23/20 10:00 01/01/21 10:18 Docusate Sodium 100 Mg/10 Ml Oral Liqd PO 100 mg BID RAEANN Administration Enoxaparin Sodium 40 mg 12/03/20 22:00 12/31/20 22:06 Enoxaparin 40 Mg/0.4 Ml Inj SUB-Q 40 mg QDAY@2200 RAEANN Administration Famotidine 20 mg 12/16/20 10:00 01/01/21 10:18 Famotidine 20 Mg Tab PO 20 mg BID RAEANN Administration Hydrophilic Ointment 1 applic 11/21/20 21:53 11/30/20 21:33 Lip Therapy Vaseline TP 1 applic Q2HR PRN Administration Dry Lips Midazolam HCl 100 mg/ Sodium 100 mls @ 2 mls/hr 02/06/21 22:00 01/01/21 03:15 Chloride IV 5 mg/hr TITR RAEANN 5 mls/hr Administration Protocol 2 MG/HR Propofol 1,000 mg in 100 mls @ 2.175 mls/hr 11/27/20 12:00 01/01/21 10:15 Diprivan 10 Mg/Ml IV 20 mcg/kg/min TITR RAEANN 8.7 mls/hr Titration Protocol 5 MCG/KG/MIN Dexmedetomidine HCl 400 mcg/ 104 mls @ 4.441 mls/hr 12/10/20 13:00 01/01/21 03:50 Sodium Chloride IV 0.7 mcg/kg/hr TITRATE RAEANN 15.543 mls/hr Administration Protocol 0.2 MCG/KG/HR Fentanyl Citrate 2,000 mcg in 100 mls @ 3.9 mls/hr 12/18/20 19:00 01/01/21 07:52 Fentanyl Drip Premix IV 4 mcg/kg/hr TITR RAEANN 15.6 mls/hr Titration Protocol 1 MCG/KG/HR Vasopressin 20 unit/ Sodium 101 mls @ 9.09 mls/hr 12/24/20 18:30 Chloride IV TITR RAEANN Protocol 0.03 UNITS/MIN Norepinephrine 8 mg/ Sodium 250 mls @ 3.75 mls/hr 12/25/20 22:00 01/01/21 07:51 Chloride IV 18 mcg/min TITR RAEANN 33.75 mls/hr Administration Protocol 2 MCG/MIN Insulin Glargine 8 units 12/17/20 13:52 12/31/20 22:06 Insulin Glargine 100 Units/Ml SUB-Q 8 units QHS [facility] Administration Insulin Human Lispro 0 unit 11/22/20 06:00 01/01/21 06:35 Insulin Lispro 100 Unit/Ml SUB-Q Not Given Q6HR [facility] Protocol Metoclopramide HCl 10 mg 11/15/20 23:55 Metoclopramide 10 Mg/2 Ml Inj IV Q6H PRN Nausea And Vomiting Multi-Ingred Cream/Lotion/Oil/Oint 1 applic 11/21/20 21:53 Mineral Oil/Petrolatum, White Ophth Oint 3.5 Gm OU Q4HR PRN Dry Eye(s) Ondansetron HCl 4 mg 11/15/20 23:55 Ondansetron 4 Mg/2 Ml Inj IV Q8H PRN Nausea And Vomiting Polyethylene Glycol 17 gm 12/23/20 10:00 01/01/21 10:18 Polyethylene Glycol 3350 17 Gm Powder PO 17 gm QDAY RAEANN Administration Senna/Docusate Sodium 2 tab 12/21/20 14:00 01/01/21 06:28 Sennosides/Docusate Sodium 8.6/50 Mg Tab PO 2 tab Q8HR RAEANN Administration Simple Syrup 15 ml 11/23/20 11:53 Simple Syrup 15 Ml FEEDTUBE PRN PRN Hypoglycemia Simple Syrup 30 ml 11/23/20 11:53 Simple Syrup 15 Ml FEEDTUBE PRN PRN Hypoglycemia Sodium Bicarbonate 325 mg 11/23/20 11:53 12/05/20 23:46 Sodium Bicarbonate 325 Mg Tab FEEDTUBE 325 mg PRN PRN Administration For Clogged Feeding Tube Sodium Chloride 10 ml 11/16/20 10:00 12/31/20 22:07 Sodium Chloride 0.9% 10 Ml Flush Syringe IV 10 ml BID RAEANN Administration Sodium Chloride 10 ml 11/15/20 23:55 12/03/20 00:21 Sodium Chloride 0.9% 10 Ml Flush Syringe IV 10 ml PRN PRN Administration LINE FLUSH Nutrition/Malnutrition Assess - Dietary Evaluation Nutrition/Malnutrition Findings: Nutrition Notes Start: 11/20/20 12:03 Freq: Status: Active Protocol: Document 12/25/20 11:32 AL (Rec: 12/25/20 11:37 AL [id number]) Co-Sign 12/25/20 11:32 CW Nutrition Notes Initial or Follow up Reassessment Current Diagnosis Diabetes,Sepsis,Respiratory Failure Other Pertinent Diagnosis Bilat pneu, COVID-19 (+) Current Diet Glucerna 1.2 at 60 ml/hr Labs/Tests Reviewed Pertinent Medications Levophed in NS Propofol at 8.7 ml/hr (229 kcal) Lasix Height 5 ft 6 in Weight 83.9 kg Usual Body Weight 80.5 kg [place] Body Weight (kg) 64.54 BMI 29.8 Weight change and time frame Wt change 2.8 kg (3%) noted. Pt has edema. Weight Status Overweight Subjective/Other Information F/U for TF tolerance and last BM. Per RN, pt had last BM yesterday 12/24. Pt tolerates TF at 60 ml/hr (goal rate). Percent of energy/protein needs met: 100%/100% Burn Absent Trauma Absent GI Symptoms None Difficulty In Swallowing,Chewing Current % PO Negligible Minimum of two criteria Yes Interpretation of Weight Loss (severe) >2% in 1 week Fluid Accumulation Moderate to Severe (severe) #3 Nutrition Diagnosis Inadequate oral intake Diagnosis Progress(for reassessment Continues documentation) #2 Nutrition Diagnosis Malnutrition As Evidenced by Signs and Symptoms Pt meeting 100%/100% of estimated energy/protein needs via TF for >7 days Diagnosis Progress(for reassessment Improved documentation) #1 Nutrition Diagnosis Unintended weight loss Diagnosis Progress(for reassessment Continues documentation) Is patient on ventilator? Yes Is Patient Ambulatory and/or Out of Bed No REE-([facility]-confined to bed) 1920.756 Kcal/Kg value to use for calculation 22 Approximate Energy Requirements Using 1846 kcal/Kg Calculation Used for Recommendations [facility] Additional Notes Protein: 87-145 g/day (1.2-2g/ kg) Fluid: 1ml/kcal or per MD Nutrition Intervention Change Diet Order: Continue TF Nutrition Support: Glucerna 1.2 at 65 ml/hr. Flush 125 ml q4h Kcal 1,872 Protein (gm) 93 Fluid (mL) 1,255 Goal #1 Meet at least 75% of energy and protein needs via TF Goal #2 TF tolerance Anticipated Discharge Needs: Unable to determine at this time Follow-Up By: 01/01/21 Additional Comments F/U for TF tolerance.
--- NOTE | 2021-01-01 15:15 | Progress Note ---
Assessment and Plan Cultures: SARS CoV-2 PCR: positive Blood culture: No growth 11/21/2020 tracheal aspirate culture: MRSA 12/09/2020 blood culture: no growth 12/09/2020 sputum culture: Klebsiella 12/17/2020 blood culture: 1 bottle with coag negative staph, second bottle with Enterococcus faecalis 12/17/2020 tracheal aspirate culture: Usual respiratory zachariah 12/21/2020 blood culture: No growth A/P: 59-year-old male with: #Shock: multifactorial. #GPC bacteremia: source unclear. Typically, Enterococcus is not considered a contaminant, however only present in 1 out of 4 bottles while another set is growing Coag negative Staph. #Bilateral pneumonia: secondary to COVID-19. Completed abx, remdesivir. #Klebsiella on ET aspirate culture: ?colonization v/s true disease, difficult to differentiate. Will treat given development of low-grade temperatures and white count. #B/L pneumothorax and pneumomediastinum: s/p chest tubes which remain in place. #Acute hypoxic respiratory failure: Remains on the vent. Recs: -Completed empiric Zosyn for shock. -extremely poor prognosis, agree with DNR status, recent literature showing mortality of 100% in COVID-19 patients who required CPR Infectious disease will sign off for now. Please call with any new questions as they arise. Rm Carrillo MD [facility] O: [phone] F: [phone] Subjective Date of service: 01/01/21 Principal diagnosis: COVID-19 Interval history: Afebrile, no acute changes at present. Cultures remain negative. Remains on the ventilator. Objective - Exam Narrative Exam: Physical exam deferred due to PPE conservation strategy. Please refer to primary team's note. - Constitutional Vitals: Vital Signs Temp Pulse Resp BP Pulse Ox 98.3 F 117 H 30 H 102/64 95 01/01/21 12:00 01/01/21 12:25 01/01/21 12:15 01/01/21 12:25 01/01/21 12:25 Temperature -Last 24 Hours Temperature 98.3 F Temperature 98.4 F Temperature 98.2 F Temperature 98.6 F Temperature 98.9 F Temperature 97.7 F - Labs CBC & Chem 7: 12/31/20 Unknown 12/31/20 04:00 Labs: Abnormal lab results 12/31/20 12/31/20 12/31/20 Range/Units 12:22 18:17 23:37 ABG pH (7.350-7.450) pH Units ABG pO2 (80.0-90.0) mm Hg ABG HCO3 (20.0-26.0) mmol/L ABG O2 Saturation (95.0-99.0) % ABG Base Excess (-2.0-3.0) mmol/L ABG Hemoglobin (14.0-18.0) gm/dl Oxyhemoglobin (95.0-99.0) % POC Glucose 131 H 136 H 139 H (70-105) mg/dL 01/01/21 01/01/21 01/01/21 Range/Units 04:50 05:10 11:29 ABG pH 7.268 L (7.350-7.450) pH Units ABG pO2 56.9 L (80.0-90.0) mm Hg ABG HCO3 38.8 H (20.0-26.0) mmol/L ABG O2 Saturation 85.5 L (95.0-99.0) % ABG Base Excess 10.7 H (-2.0-3.0) mmol/L ABG Hemoglobin 6.4 L (14.0-18.0) gm/dl Oxyhemoglobin 82.8 L (95.0-99.0) % POC Glucose 143 H 153 H (70-105) mg/dL
[2021-01-01] MEDS ORDERED: LACTATED RINGERS 1,000 ML IV ONE (17:00)
[2021-01-01 17:19] LABS: Hematocrit 24.5 % (35.5-45.6); Hemoglobin 7.8 gm/dl (11.8-15.2); Mean Corpuscular HGB Conc 32 % (32-34); Mean Corpuscular Volume 92 fl (84-94); Platelet Count 404 K/mm3 (140-440); Red Blood Count 2.68 M/mm3 (3.65-5.03); Red Cell Distribution Width 18.9 % (13.2-15.2)
[2021-01-01 19:44] LABS: Band Neutrophils # (Manual) 6.6 K/mm3; Large Platelets Rare; Total Cells Counted 100
[2021-01-01 19:45] LABS: Anisocytosis Few; Platelet Estimate Consistent w Auto
[2021-01-01] MEDS: ENOXAPARIN 40 MG/0.4 ML INJ SUB-Q SCH (21:45)
[2021-01-01] MEDS: INSULIN GLARGINE 100 UNITS/ML SUB-Q SCH (21:46)
[2021-01-02] MEDS: NORepinephrine 8 MG in SODIUM CHLORIDE 0.9% 250ML 242 ML IV SCH ×3 (00:49→21:40)
[2021-01-02] MEDS ORDERED: LORazepam 2 MG/ML VIAL IV PRN (01:05)
[2021-01-02] MEDS: ACETAMINOPHEN 325 MG TAB PO PRN (01:22)
[2021-01-02] MEDS: fentaNYL DRIP Premix 2,000 MCG/100 ML BAG IV SCH ×3 (05:41→18:21)
[2021-01-02] MEDS: INSULIN LISPRO 100 UNIT/ML SUB-Q SCH ×3 (05:43→18:39)
[2021-01-02] MEDS: SENNOSIDES/DOCUSATE SODIUM 8.6/50 MG TAB PO SCH ×3 (06:35→21:38)
[2021-01-02] MEDS: DOCUSATE SODIUM 100 MG/10 ML ORAL LIQD PO SCH ×2 (09:14→21:38)
[2021-01-02] MEDS: FAMOTIDINE 20 MG TAB PO SCH ×2 (09:14→21:38)
[2021-01-02] MEDS: POLYETHYLENE GLYCOL 3350 17 GM POWDER PO SCH (09:14)
--- NOTE | 2021-01-02 10:14 | Progress Note ---
Assessment and Plan - Patient Problems (1) COVID-19 Current Visit: Yes Status: Acute (2) Acute respiratory failure with hypoxia Current Visit: Yes Status: Acute (3) Bilateral pneumonia Current Visit: Yes Status: Acute Qualifiers: Pneumonia type: due to unspecified organism Lung location: unspecified part of lung Qualified Code(s): J18.9 - Pneumonia, unspecified organism (4) Hyponatremia Current Visit: Yes Status: Acute (5) Hypoxia Current Visit: Yes Status: Acute (6) Pneumothorax Current Visit: Yes Status: Acute (7) Sepsis Current Visit: Yes Status: Acute Subjective Principal diagnosis: COVID-19 Interval history: on vent, Objective Vital Signs - 12hr 01/01/21 01/01/21 01/01/21 22:15 22:31 22:45 Temperature Pulse Rate 134 H 134 H 134 H Pulse Rate [ From Monitor] Respiratory 30 H 30 H 30 H Rate Blood Pressure 93/63 87/57 87/57 O2 Sat by Pulse 89 88 87 Oximetry 01/01/21 01/01/21 01/01/21 23:00 23:01 23:15 Temperature Pulse Rate 123 H 123 H 129 H Pulse Rate [ From Monitor] Respiratory 30 H 30 H 29 H Rate Blood Pressure 89/49 89/49 115/60 O2 Sat by Pulse 87 88 88 Oximetry 01/01/21 01/01/21 01/01/21 23:30 23:36 23:45 Temperature 99.9 F H Pulse Rate 127 H 129 H Pulse Rate [ From Monitor] Respiratory 30 H 30 H Rate Blood Pressure 97/51 101/55 O2 Sat by Pulse 89 89 Oximetry 01/01/21 01/02/21 01/02/21 23:54 00:00 00:15 Temperature Pulse Rate 140 H 130 H 142 H Pulse Rate [ 138 H From Monitor] Respiratory 30 H 30 H Rate Blood Pressure 101/55 92/62 98/59 O2 Sat by Pulse 90 89 90 Oximetry 01/02/21 01/02/21 01/02/21 00:30 00:45 01:00 Temperature Pulse Rate 137 H 131 H 144 H Pulse Rate [ From Monitor] Respiratory 30 H 30 H 32 H Rate Blood Pressure 100/61 99/52 105/61 O2 Sat by Pulse 90 89 89 Oximetry 01/02/21 01/02/21 01/02/21 01:15 01:30 01:45 Temperature Pulse Rate 137 H 134 H 129 H Pulse Rate [ From Monitor] Respiratory 30 H 22 23 Rate Blood Pressure 104/60 104/60 92/49 O2 Sat by Pulse 90 87 89 Oximetry 01/02/21 01/02/21 01/02/21 02:00 02:15 02:30 Temperature Pulse Rate 132 H 130 H 132 H Pulse Rate [ From Monitor] Respiratory 30 H 30 H 30 H Rate Blood Pressure 96/51 89/51 89/51 O2 Sat by Pulse 88 88 86 Oximetry 01/02/21 01/02/21 01/02/21 02:45 03:00 03:07 Temperature 98.9 F Pulse Rate 127 H 135 H Pulse Rate [ From Monitor] Respiratory 30 H 30 H Rate Blood Pressure 89/48 92/54 O2 Sat by Pulse 88 89 Oximetry 01/02/21 01/02/21 01/02/21 03:15 03:30 03:45 Temperature Pulse Rate 129 H 126 H 131 H Pulse Rate [ From Monitor] Respiratory 30 H 30 H 30 H Rate Blood Pressure 88/48 86/47 96/53 O2 Sat by Pulse 90 90 90 Oximetry 01/02/21 01/02/21 01/02/21 03:56 04:00 04:15 Temperature Pulse Rate 134 H 128 H 129 H Pulse Rate [ 128 H From Monitor] Respiratory 30 H 30 H Rate Blood Pressure 96/53 95/53 98/53 O2 Sat by Pulse 91 90 90 Oximetry 01/02/21 01/02/21 01/02/21 04:30 04:45 05:00 Temperature Pulse Rate 133 H 126 H 124 H Pulse Rate [ From Monitor] Respiratory 30 H 30 H 30 H Rate Blood Pressure 97/54 89/49 89/50 O2 Sat by Pulse 91 90 85 Oximetry 01/02/21 01/02/21 01/02/21 05:15 05:30 05:45 Temperature Pulse Rate 127 H 128 H 132 H Pulse Rate [ From Monitor] Respiratory 30 H 30 H 30 H Rate Blood Pressure 94/52 100/51 106/56 O2 Sat by Pulse 86 87 87 Oximetry 01/02/21 01/02/21 01/02/21 06:00 06:15 06:30 Temperature Pulse Rate 132 H 130 H 130 H Pulse Rate [ From Monitor] Respiratory 30 H 30 H 30 H Rate Blood Pressure 100/54 97/55 97/54 O2 Sat by Pulse 86 87 87 Oximetry 03/20/21 03/20/21 03/20/21 06:45 07:00 07:15 Temperature Pulse Rate 130 H 136 H 133 H Pulse Rate [ From Monitor] Respiratory 15 29 H 25 H Rate Blood Pressure 92/55 92/56 101/56 O2 Sat by Pulse 77 L 87 85 Oximetry 01/02/21 01/02/21 01/02/21 07:30 07:43 07:45 Temperature 98.9 F Pulse Rate 127 H 127 H Pulse Rate [ From Monitor] Respiratory 30 H 30 H Rate Blood Pressure 92/53 89/51 O2 Sat by Pulse 86 85 Oximetry 01/02/21 01/02/21 01/02/21 08:00 08:14 08:15 Temperature Pulse Rate 134 H 126 H 126 H Pulse Rate [ 128 H From Monitor] Respiratory 30 H 30 H Rate Blood Pressure 94/60 92/54 92/54 O2 Sat by Pulse 84 84 84 Oximetry Constitutional: lethargic, comatose, other (on vent orally intubated) ENT: other (Now intubated) Effort: other (vent support ) Ascultation: Bilateral: diminished breath sounds, rales, rhonchi, other (coarse BS bilaterally) Percussion: Bilateral: not dull Cardiovascular: regular rate and rhythm (tachy ) Gastrointestinal: soft, non-tender, non-distended Integumentary: normal Extremities: no cyanosis, no edema, pink and warm Neurologic: other (sedated) Psychiatric: other (sedated) CBC and BMP: 01/01/21 17:00 12/31/20 04:00 ABG, PT/INR, D-dimer: ABG ABG pH 7.219 (7.320-7.450) L 01/02/21 04:45 POC ABG pCO2 102.6 mmHg (32.0-48.0) H 01/02/21 04:45 ABG pCO2 86.9 mm Hg 01/01/21 04:50 POC ABG pO2 49.7 mmHg (83-108) L 01/02/21 04:45 ABG pO2 56.9 mm Hg (80.0-90.0) L 01/01/21 04:50 POC ABG HCO3 41.0 01/02/21 04:45 ABG O2 Saturation 81.5 (0-100) 01/02/21 04:45 PT/INR, D-dimer D-Dimer 926.11 ng/mlDDU (0-234) H 11/26/20 06:04 Abnormal lab findings: Abnormal Labs 11/15/20 11/15/20 11/15/20 10:39 10:39 10:39 WBC 14.3 H RBC 5.17 H Hgb Hct MCHC RDW Plt Count Lymph % (Auto) 7.8 L [place] % (Auto) 7.6 H Lymph # (Auto) 1.1 L [place] # (Auto) 1.1 H Baso # (Auto) Seg Neutrophils % 83.3 H Seg Neuts % (Manual) Lymphocytes % (Manual) Nucleated RBC % Seg Neutrophils # 11.9 H Seg Neutrophils # Man Lymphocytes # (Manual) D-Dimer ABG pH POC ABG pCO2 POC ABG pO2 ABG pO2 ABG HCO3 ABG O2 Saturation ABG Base Excess ABG Hemoglobin ABG Oxyhemoglobin ABG Sodium ABG Potassium ABG Chloride ABG Glucose Oxyhemoglobin Carboxyhemoglobin Sodium 128 L Potassium Chloride 96.0 L Carbon Dioxide BUN Creatinine 0.7 L Glucose 238 H POC Glucose Hemoglobin A1c Lactic Acid 4.10 H* Calcium 7.0 L Magnesium Ferritin Total Bilirubin 1.40 H AST 49 H ALT 70 H Alkaline Phosphatase Lactate Dehydrogenase 663 H Total Creatine Kinase C-Reactive Protein 19.80 H Total Protein Albumin 2.9 L Triglycerides Arterial Blood Glucose Arterial Blood Ionized Calcium Ur Specific [place] Urine WBC (Auto) Vancomycin Trough Coronavirus (PCR) 11/15/20 11/15/20 11/15/20 10:39 10:39 11:20 WBC RBC Hgb Hct MCHC RDW Plt Count Lymph % (Auto) [place] % (Auto) Lymph # (Auto) [place] # (Auto) Baso # (Auto) Seg Neutrophils % Seg Neuts % (Manual) Lymphocytes % (Manual) Nucleated RBC % Seg Neutrophils # Seg Neutrophils # Man Lymphocytes # (Manual) D-Dimer > 65993 H ABG pH POC ABG pCO2 29.9 L POC ABG pO2 137.3 H ABG pO2 ABG HCO3 ABG O2 Saturation ABG Base Excess ABG Hemoglobin ABG Oxyhemoglobin ABG Sodium 126.5 L ABG Potassium ABG Chloride ABG Glucose 248 H Oxyhemoglobin Carboxyhemoglobin Sodium Potassium Chloride Carbon Dioxide BUN Creatinine Glucose POC Glucose Hemoglobin A1c Lactic Acid Calcium Magnesium Ferritin 672.8 H Total Bilirubin AST ALT Alkaline Phosphatase Lactate Dehydrogenase Total Creatine Kinase C-Reactive Protein Total Protein Albumin Triglycerides Arterial Blood Glucose 248 H Arterial Blood Ionized Calcium 4.1 L Ur Specific [place] Urine WBC (Auto) Vancomycin Trough Coronavirus (PCR) 11/15/20 11/15/20 11/16/20 13:41 23:41 01:45 WBC RBC Hgb Hct MCHC RDW Plt Count Lymph % (Auto) [place] % (Auto) Lymph # (Auto) [place] # (Auto) Baso # (Auto) Seg Neutrophils % Seg Neuts % (Manual) Lymphocytes % (Manual) Nucleated RBC % Seg Neutrophils # Seg Neutrophils # Man Lymphocytes # (Manual) D-Dimer ABG pH POC ABG pCO2 POC ABG pO2 ABG pO2 ABG HCO3 ABG O2 Saturation ABG Base Excess ABG Hemoglobin ABG Oxyhemoglobin ABG Sodium ABG Potassium ABG Chloride ABG Glucose Oxyhemoglobin Carboxyhemoglobin Sodium Potassium Chloride Carbon Dioxide BUN Creatinine Glucose POC Glucose 284 H Hemoglobin A1c Lactic Acid 2.30 H* Calcium Magnesium Ferritin Total Bilirubin AST ALT Alkaline Phosphatase Lactate Dehydrogenase Total Creatine Kinase C-Reactive Protein Total Protein Albumin Triglycerides Arterial Blood Glucose Arterial Blood Ionized Calcium Ur Specific [place] 1.037 H Urine WBC (Auto) Vancomycin Trough Coronavirus (PCR) 11/16/20 11/16/20 11/16/20 05:29 05:29 05:29 WBC 12.9 H RBC Hgb Hct MCHC RDW Plt Count Lymph % (Auto) 4.5 L [place] % (Auto) Lymph # (Auto) 0.6 L [place] # (Auto) Baso # (Auto) 0.2 H Seg Neutrophils % 89.8 H Seg Neuts % (Manual) Lymphocytes % (Manual) Nucleated RBC % Seg Neutrophils # 11.5 H Seg Neutrophils # Man Lymphocytes # (Manual) D-Dimer ABG pH POC ABG pCO2 POC ABG pO2 ABG pO2 ABG HCO3 ABG O2 Saturation ABG Base Excess ABG Hemoglobin ABG Oxyhemoglobin ABG Sodium ABG Potassium ABG Chloride ABG Glucose Oxyhemoglobin Carboxyhemoglobin Sodium 131 L Potassium Chloride Carbon Dioxide 21 L BUN 23 H Creatinine 0.6 L Glucose 342 H POC Glucose Hemoglobin A1c Lactic Acid 2.60 H* Calcium 7.0 L Magnesium Ferritin Total Bilirubin AST ALT Alkaline Phosphatase Lactate Dehydrogenase Total Creatine Kinase C-Reactive Protein Total Protein Albumin 2.4 L Triglycerides Arterial Blood Glucose Arterial Blood Ionized Calcium Ur Specific [place] Urine WBC (Auto) Vancomycin Trough Coronavirus (PCR) 11/16/20 11/16/20 11/16/20 05:29 08:11 12:11 WBC RBC Hgb Hct MCHC RDW Plt Count Lymph % (Auto) [place] % (Auto) Lymph # (Auto) [place] # (Auto) Baso # (Auto) Seg Neutrophils % Seg Neuts % (Manual) Lymphocytes % (Manual) Nucleated RBC % Seg Neutrophils # Seg Neutrophils # Man Lymphocytes # (Manual) D-Dimer ABG pH POC ABG pCO2 POC ABG pO2 ABG pO2 ABG HCO3 ABG O2 Saturation ABG Base Excess ABG Hemoglobin ABG Oxyhemoglobin ABG Sodium ABG Potassium ABG Chloride ABG Glucose Oxyhemoglobin Carboxyhemoglobin Sodium Potassium Chloride Carbon Dioxide BUN Creatinine Glucose POC Glucose 329 H 320 H Hemoglobin A1c 11.7 H Lactic Acid Calcium Magnesium Ferritin Total Bilirubin AST ALT Alkaline Phosphatase Lactate Dehydrogenase Total Creatine Kinase C-Reactive Protein Total Protein Albumin Triglycerides Arterial Blood Glucose Arterial Blood Ionized Calcium Ur Specific [place] Urine WBC (Auto) Vancomycin Trough Coronavirus (PCR) 11/16/20 11/16/20 11/16/20 16:13 21:29 Unknown WBC RBC Hgb Hct MCHC RDW Plt Count Lymph % (Auto) [place] % (Auto) Lymph # (Auto) [place] # (Auto) Baso # (Auto) Seg Neutrophils % Seg Neuts % (Manual) Lymphocytes % (Manual) Nucleated RBC % Seg Neutrophils # Seg Neutrophils # Man Lymphocytes # (Manual) D-Dimer ABG pH POC ABG pCO2 POC ABG pO2 ABG pO2 ABG HCO3 ABG O2 Saturation ABG Base Excess ABG Hemoglobin ABG Oxyhemoglobin ABG Sodium ABG Potassium ABG Chloride ABG Glucose Oxyhemoglobin Carboxyhemoglobin Sodium Potassium Chloride Carbon Dioxide BUN Creatinine Glucose POC Glucose 257 H 376 H Hemoglobin A1c Lactic Acid Calcium Magnesium Ferritin Total Bilirubin AST ALT Alkaline Phosphatase Lactate Dehydrogenase Total Creatine Kinase C-Reactive Protein Total Protein Albumin Triglycerides Arterial Blood Glucose Arterial Blood Ionized Calcium Ur Specific [place] Urine WBC (Auto) Vancomycin Trough Coronavirus (PCR) Positive A 11/17/20 11/17/20 11/17/20 07:42 12:07 17:25 WBC RBC Hgb Hct MCHC RDW Plt Count Lymph % (Auto) [place] % (Auto) Lymph # (Auto) [place] # (Auto) Baso # (Auto) Seg Neutrophils % Seg Neuts % (Manual) Lymphocytes % (Manual) Nucleated RBC % Seg Neutrophils # Seg Neutrophils # Man Lymphocytes # (Manual) D-Dimer ABG pH POC ABG pCO2 POC ABG pO2 ABG pO2 ABG HCO3 ABG O2 Saturation ABG Base Excess ABG Hemoglobin ABG Oxyhemoglobin ABG Sodium ABG Potassium ABG Chloride ABG Glucose Oxyhemoglobin Carboxyhemoglobin Sodium Potassium Chloride Carbon Dioxide BUN Creatinine Glucose POC Glucose 231 H 380 H 302 H Hemoglobin A1c Lactic Acid Calcium Magnesium Ferritin Total Bilirubin AST ALT Alkaline Phosphatase Lactate Dehydrogenase Total Creatine Kinase C-Reactive Protein Total Protein Albumin Triglycerides Arterial Blood Glucose Arterial Blood Ionized Calcium Ur Specific [place] Urine WBC (Auto) Vancomycin Trough Coronavirus (PCR) 11/17/20 11/18/20 11/18/20 21:53 04:25 07:45 WBC RBC Hgb Hct MCHC RDW Plt Count Lymph % (Auto) [place] % (Auto) Lymph # (Auto) [place] # (Auto) Baso # (Auto) Seg Neutrophils % Seg Neuts % (Manual) Lymphocytes % (Manual) Nucleated RBC % Seg Neutrophils # Seg Neutrophils # Man Lymphocytes # (Manual) D-Dimer ABG pH POC ABG pCO2 POC ABG pO2 ABG pO2 ABG HCO3 ABG O2 Saturation ABG Base Excess ABG Hemoglobin ABG Oxyhemoglobin ABG Sodium ABG Potassium ABG Chloride ABG Glucose Oxyhemoglobin Carboxyhemoglobin Sodium 136 L Potassium Chloride Carbon Dioxide BUN 24 H Creatinine 0.6 L Glucose 212 H POC Glucose 293 H 216 H Hemoglobin A1c Lactic Acid Calcium 7.4 L Magnesium Ferritin Total Bilirubin AST 41 H ALT Alkaline Phosphatase 142 H Lactate Dehydrogenase Total Creatine Kinase C-Reactive Protein Total Protein Albumin 2.3 L Triglycerides Arterial Blood Glucose Arterial Blood Ionized Calcium Ur Specific [place] Urine WBC (Auto) Vancomycin Trough Coronavirus (PCR) 11/18/20 11/18/20 11/18/20 12:28 15:58 21:37 WBC RBC Hgb Hct MCHC RDW Plt Count Lymph % (Auto) [place] % (Auto) Lymph # (Auto) [place] # (Auto) Baso # (Auto) Seg Neutrophils % Seg Neuts % (Manual) Lymphocytes % (Manual) Nucleated RBC % Seg Neutrophils # Seg Neutrophils # Man Lymphocytes # (Manual) D-Dimer ABG pH POC ABG pCO2 POC ABG pO2 ABG pO2 ABG HCO3 ABG O2 Saturation ABG Base Excess ABG Hemoglobin ABG Oxyhemoglobin ABG Sodium ABG Potassium ABG Chloride ABG Glucose Oxyhemoglobin Carboxyhemoglobin Sodium Potassium Chloride Carbon Dioxide BUN Creatinine Glucose POC Glucose 165 H 220 H 311 H Hemoglobin A1c Lactic Acid Calcium Magnesium Ferritin Total Bilirubin AST ALT Alkaline Phosphatase Lactate Dehydrogenase Total Creatine Kinase C-Reactive Protein Total Protein Albumin Triglycerides Arterial Blood Glucose Arterial Blood Ionized Calcium Ur Specific [place] Urine WBC (Auto) Vancomycin Trough Coronavirus (PCR) 11/19/20 11/19/20 11/19/20 05:35 07:40 12:39 WBC RBC Hgb Hct MCHC RDW Plt Count Lymph % (Auto) [place] % (Auto) Lymph # (Auto) [place] # (Auto) Baso # (Auto) Seg Neutrophils % Seg Neuts % (Manual) Lymphocytes % (Manual) Nucleated RBC % Seg Neutrophils # Seg Neutrophils # Man Lymphocytes # (Manual) D-Dimer ABG pH POC ABG pCO2 POC ABG pO2 ABG pO2 ABG HCO3 ABG O2 Saturation ABG Base Excess ABG Hemoglobin ABG Oxyhemoglobin ABG Sodium ABG Potassium ABG Chloride ABG Glucose Oxyhemoglobin Carboxyhemoglobin Sodium 132 L Potassium Chloride Carbon Dioxide BUN 25 H Creatinine 0.5 L Glucose 179 H POC Glucose 149 H 306 H Hemoglobin A1c Lactic Acid Calcium 7.5 L Magnesium Ferritin Total Bilirubin AST ALT Alkaline Phosphatase 139 H Lactate Dehydrogenase Total Creatine Kinase C-Reactive Protein Total Protein Albumin 2.4 L Triglycerides Arterial Blood Glucose Arterial Blood Ionized Calcium Ur Specific [place] Urine WBC (Auto) Vancomycin Trough Coronavirus (PCR) 11/19/20 11/19/20 11/20/20 16:17 21:25 08:30 WBC RBC Hgb Hct MCHC RDW Plt Count Lymph % (Auto) [place] % (Auto) Lymph # (Auto) [place] # (Auto) Baso # (Auto) Seg Neutrophils % Seg Neuts % (Manual) Lymphocytes % (Manual) Nucleated RBC % Seg Neutrophils # Seg Neutrophils # Man Lymphocytes # (Manual) D-Dimer ABG pH POC ABG pCO2 POC ABG pO2 ABG pO2 ABG HCO3 ABG O2 Saturation ABG Base Excess ABG Hemoglobin ABG Oxyhemoglobin ABG Sodium ABG Potassium ABG Chloride ABG Glucose Oxyhemoglobin Carboxyhemoglobin Sodium Potassium Chloride Carbon Dioxide BUN Creatinine Glucose POC Glucose 364 H 347 H 141 H Hemoglobin A1c Lactic Acid Calcium Magnesium Ferritin Total Bilirubin AST ALT Alkaline Phosphatase Lactate Dehydrogenase Total Creatine Kinase C-Reactive Protein Total Protein Albumin Triglycerides Arterial Blood Glucose Arterial Blood Ionized Calcium Ur Specific [place] Urine WBC (Auto) Vancomycin Trough Coronavirus (PCR) 11/20/20 11/20/20 11/20/20 08:50 11:32 16:19 WBC RBC Hgb Hct MCHC RDW Plt Count Lymph % (Auto) [place] % (Auto) Lymph # (Auto) [place] # (Auto) Baso # (Auto) Seg Neutrophils % Seg Neuts % (Manual) Lymphocytes % (Manual) Nucleated RBC % Seg Neutrophils # Seg Neutrophils # Man Lymphocytes # (Manual) D-Dimer ABG pH POC ABG pCO2 POC ABG pO2 ABG pO2 ABG HCO3 ABG O2 Saturation ABG Base Excess ABG Hemoglobin ABG Oxyhemoglobin ABG Sodium ABG Potassium ABG Chloride ABG Glucose Oxyhemoglobin Carboxyhemoglobin Sodium 132 L Potassium Chloride 97.6 L Carbon Dioxide BUN 26 H Creatinine 0.5 L Glucose 201 H POC Glucose 296 H 327 H Hemoglobin A1c Lactic Acid Calcium 7.9 L Magnesium Ferritin Total Bilirubin AST ALT Alkaline Phosphatase 137 H Lactate Dehydrogenase Total Creatine Kinase C-Reactive Protein Total Protein Albumin 2.6 L Triglycerides Arterial Blood Glucose Arterial Blood Ionized Calcium Ur Specific [place] Urine WBC (Auto) Vancomycin Trough Coronavirus (PCR) 11/20/20 11/21/20 11/21/20 22:09 07:59 13:51 WBC RBC Hgb Hct MCHC RDW Plt Count Lymph % (Auto) [place] % (Auto) Lymph # (Auto) [place] # (Auto) Baso # (Auto) Seg Neutrophils % Seg Neuts % (Manual) Lymphocytes % (Manual) Nucleated RBC % Seg Neutrophils # Seg Neutrophils # Man Lymphocytes # (Manual) D-Dimer ABG pH POC ABG pCO2 POC ABG pO2 ABG pO2 ABG HCO3 ABG O2 Saturation ABG Base Excess ABG Hemoglobin ABG Oxyhemoglobin ABG Sodium ABG Potassium ABG Chloride ABG Glucose Oxyhemoglobin Carboxyhemoglobin Sodium Potassium Chloride Carbon Dioxide BUN Creatinine Glucose POC Glucose 311 H 218 H 304 H Hemoglobin A1c Lactic Acid Calcium Magnesium Ferritin Total Bilirubin AST ALT Alkaline Phosphatase Lactate Dehydrogenase Total Creatine Kinase C-Reactive Protein Total Protein Albumin Triglycerides Arterial Blood Glucose Arterial Blood Ionized Calcium Ur Specific [place] Urine WBC (Auto) Vancomycin Trough Coronavirus (PCR) 11/21/20 11/21/20 11/21/20 16:09 21:34 23:00 WBC RBC Hgb Hct MCHC RDW Plt Count Lymph % (Auto) [place] % (Auto) Lymph # (Auto) [place] # (Auto) Baso # (Auto) Seg Neutrophils % Seg Neuts % (Manual) Lymphocytes % (Manual) Nucleated RBC % Seg Neutrophils # Seg Neutrophils # Man Lymphocytes # (Manual) D-Dimer ABG pH 7.206 L POC ABG pCO2 59.3 H POC ABG pO2 76.7 L ABG pO2 ABG HCO3 ABG O2 Saturation ABG Base Excess ABG Hemoglobin ABG Oxyhemoglobin ABG Sodium 133.1 L ABG Potassium ABG Chloride ABG Glucose 320 H Oxyhemoglobin Carboxyhemoglobin Sodium Potassium Chloride Carbon Dioxide BUN Creatinine Glucose POC Glucose 239 H 279 H Hemoglobin A1c Lactic Acid Calcium Magnesium Ferritin Total Bilirubin AST ALT Alkaline Phosphatase Lactate Dehydrogenase Total Creatine Kinase C-Reactive Protein Total Protein Albumin Triglycerides Arterial Blood Glucose 320 H Arterial Blood Ionized Calcium Ur Specific [place] Urine WBC (Auto) Vancomycin Trough Coronavirus (PCR) 11/22/20 11/22/20 11/22/20 04:52 04:52 04:52 WBC RBC Hgb Hct MCHC RDW Plt Count Lymph % (Auto) [place] % (Auto) Lymph # (Auto) [place] # (Auto) Baso # (Auto) Seg Neutrophils % Seg Neuts % (Manual) Lymphocytes % (Manual) Nucleated RBC % Seg Neutrophils # Seg Neutrophils # Man Lymphocytes # (Manual) D-Dimer 1858.36 H ABG pH POC ABG pCO2 POC ABG pO2 ABG pO2 ABG HCO3 ABG O2 Saturation ABG Base Excess ABG Hemoglobin ABG Oxyhemoglobin ABG Sodium ABG Potassium ABG Chloride ABG Glucose Oxyhemoglobin Carboxyhemoglobin Sodium Potassium Chloride Carbon Dioxide BUN Creatinine Glucose POC Glucose Hemoglobin A1c Lactic Acid Calcium Magnesium Ferritin 734.2 H Total Bilirubin AST ALT Alkaline Phosphatase Lactate Dehydrogenase 404 H Total Creatine Kinase C-Reactive Protein 2.80 H Total Protein Albumin Triglycerides Arterial Blood Glucose Arterial Blood Ionized Calcium Ur Specific [place] Urine WBC (Auto) Vancomycin Trough Coronavirus (PCR) 11/22/20 11/22/20 11/22/20 05:12 05:39 11:50 WBC RBC Hgb Hct MCHC RDW Plt Count Lymph % (Auto) [place] % (Auto) Lymph # (Auto) [place] # (Auto) Baso # (Auto) Seg Neutrophils % Seg Neuts % (Manual) Lymphocytes % (Manual) Nucleated RBC % Seg Neutrophils # Seg Neutrophils # Man Lymphocytes # (Manual) D-Dimer ABG pH POC ABG pCO2 POC ABG pO2 51.0 L ABG pO2 ABG HCO3 ABG O2 Saturation ABG Base Excess ABG Hemoglobin ABG Oxyhemoglobin ABG Sodium 131.2 L ABG Potassium 4.6 H ABG Chloride ABG Glucose 317 H Oxyhemoglobin Carboxyhemoglobin Sodium Potassium Chloride Carbon Dioxide BUN Creatinine Glucose POC Glucose 340 H 417 H Hemoglobin A1c Lactic Acid Calcium Magnesium Ferritin Total Bilirubin AST ALT Alkaline Phosphatase Lactate Dehydrogenase Total Creatine Kinase C-Reactive Protein Total Protein Albumin Triglycerides Arterial Blood Glucose 317 H Arterial Blood Ionized Calcium 4.4 L Ur Specific [place] Urine WBC (Auto) Vancomycin Trough Coronavirus (PCR) 11/22/20 11/22/20 11/22/20 12:22 12:22 17:10 WBC 14.4 H RBC Hgb Hct MCHC RDW Plt Count Lymph % (Auto) [place] % (Auto) Lymph # (Auto) [place] # (Auto) Baso # (Auto) Seg Neutrophils % Seg Neuts % (Manual) 98.0 H Lymphocytes % (Manual) Nucleated RBC % Seg Neutrophils # Seg Neutrophils # Man 14.1 H Lymphocytes # (Manual) 0.0 L D-Dimer ABG pH POC ABG pCO2 POC ABG pO2 ABG pO2 ABG HCO3 ABG O2 Saturation ABG Base Excess ABG Hemoglobin ABG Oxyhemoglobin ABG Sodium ABG Potassium ABG Chloride ABG Glucose Oxyhemoglobin Carboxyhemoglobin Sodium 132 L Potassium Chloride Carbon Dioxide BUN 36 H Creatinine 0.6 L Glucose 219 H POC Glucose 157 H Hemoglobin A1c Lactic Acid Calcium 7.2 L Magnesium Ferritin Total Bilirubin AST ALT Alkaline Phosphatase Lactate Dehydrogenase Total Creatine Kinase C-Reactive Protein Total Protein Albumin Triglycerides Arterial Blood Glucose Arterial Blood Ionized Calcium Ur Specific [place] Urine WBC (Auto) Vancomycin Trough Coronavirus (PCR) 11/22/20 11/22/20 11/22/20 18:33 21:44 23:47 WBC RBC Hgb Hct MCHC RDW Plt Count Lymph % (Auto) [place] % (Auto) Lymph # (Auto) [place] # (Auto) Baso # (Auto) Seg Neutrophils % Seg Neuts % (Manual) Lymphocytes % (Manual) Nucleated RBC % Seg Neutrophils # Seg Neutrophils # Man Lymphocytes # (Manual) D-Dimer ABG pH POC ABG pCO2 POC ABG pO2 60.8 L ABG pO2 ABG HCO3 ABG O2 Saturation ABG Base Excess ABG Hemoglobin ABG Oxyhemoglobin 88.1 L ABG Sodium 135.1 L ABG Potassium ABG Chloride ABG Glucose 141 H Oxyhemoglobin Carboxyhemoglobin Sodium Potassium Chloride Carbon Dioxide BUN Creatinine Glucose POC Glucose 117 H 123 H Hemoglobin A1c Lactic Acid Calcium Magnesium Ferritin Total Bilirubin AST ALT Alkaline Phosphatase Lactate Dehydrogenase Total Creatine Kinase C-Reactive Protein Total Protein Albumin Triglycerides Arterial Blood Glucose 141 H Arterial Blood Ionized Calcium Ur Specific [place] Urine WBC (Auto) Vancomycin Trough Coronavirus (PCR) 11/23/20 11/23/20 11/23/20 04:00 04:00 05:23 WBC 14.4 H RBC Hgb Hct MCHC RDW Plt Count Lymph % (Auto) [place] % (Auto) Lymph # (Auto) [place] # (Auto) Baso # (Auto) Seg Neutrophils % Seg Neuts % (Manual) Lymphocytes % (Manual) Nucleated RBC % Seg Neutrophils # Seg Neutrophils # Man Lymphocytes # (Manual) D-Dimer ABG pH POC ABG pCO2 POC ABG pO2 ABG pO2 ABG HCO3 ABG O2 Saturation ABG Base Excess ABG Hemoglobin ABG Oxyhemoglobin ABG Sodium ABG Potassium ABG Chloride ABG Glucose Oxyhemoglobin Carboxyhemoglobin Sodium 136 L Potassium Chloride Carbon Dioxide BUN 33 H Creatinine 0.6 L Glucose 115 H POC Glucose 173 H Hemoglobin A1c Lactic Acid Calcium 7.1 L Magnesium Ferritin Total Bilirubin AST 64 H ALT 75 H Alkaline Phosphatase Lactate Dehydrogenase Total Creatine Kinase C-Reactive Protein Total Protein 5.9 L D Albumin 2.4 L Triglycerides Arterial Blood Glucose Arterial Blood Ionized Calcium Ur Specific [place] Urine WBC (Auto) Vancomycin Trough Coronavirus (PCR) 11/23/20 11/23/20 11/23/20 05:40 11:27 17:10 WBC RBC Hgb Hct MCHC RDW Plt Count Lymph % (Auto) [place] % (Auto) Lymph # (Auto) [place] # (Auto) Baso # (Auto) Seg Neutrophils % Seg Neuts % (Manual) Lymphocytes % (Manual) Nucleated RBC % Seg Neutrophils # Seg Neutrophils # Man Lymphocytes # (Manual) D-Dimer ABG pH POC ABG pCO2 POC ABG pO2 56.5 L ABG pO2 ABG HCO3 ABG O2 Saturation ABG Base Excess ABG Hemoglobin ABG Oxyhemoglobin ABG Sodium ABG Potassium ABG Chloride 109.0 H ABG Glucose 114 H Oxyhemoglobin Carboxyhemoglobin Sodium Potassium Chloride Carbon Dioxide BUN Creatinine Glucose POC Glucose 114 H 136 H Hemoglobin A1c Lactic Acid Calcium Magnesium Ferritin Total Bilirubin AST ALT Alkaline Phosphatase Lactate Dehydrogenase Total Creatine Kinase C-Reactive Protein Total Protein Albumin Triglycerides Arterial Blood Glucose 114 H Arterial Blood Ionized Calcium 4.5 L Ur Specific [place] Urine WBC (Auto) Vancomycin Trough Coronavirus (PCR) 11/24/20 11/24/20 11/24/20 05:14 05:14 05:14 WBC RBC Hgb Hct MCHC RDW Plt Count Lymph % (Auto) [place] % (Auto) Lymph # (Auto) [place] # (Auto) Baso # (Auto) Seg Neutrophils % Seg Neuts % (Manual) Lymphocytes % (Manual) Nucleated RBC % Seg Neutrophils # Seg Neutrophils # Man Lymphocytes # (Manual) D-Dimer 1433.39 H ABG pH POC ABG pCO2 POC ABG pO2 ABG pO2 ABG HCO3 ABG O2 Saturation ABG Base Excess ABG Hemoglobin ABG Oxyhemoglobin ABG Sodium ABG Potassium ABG Chloride ABG Glucose Oxyhemoglobin Carboxyhemoglobin Sodium Potassium Chloride Carbon Dioxide BUN Creatinine Glucose POC Glucose Hemoglobin A1c Lactic Acid Calcium Magnesium Ferritin 997.5 H Total Bilirubin AST ALT Alkaline Phosphatase Lactate Dehydrogenase 463 H Total Creatine Kinase C-Reactive Protein Total Protein Albumin Triglycerides Arterial Blood Glucose Arterial Blood Ionized Calcium Ur Specific [place] Urine WBC (Auto) Vancomycin Trough Coronavirus (PCR) 11/24/20 11/24/20 11/24/20 05:31 05:36 12:05 WBC RBC Hgb Hct MCHC RDW Plt Count Lymph % (Auto) [place] % (Auto) Lymph # (Auto) [place] # (Auto) Baso # (Auto) Seg Neutrophils % Seg Neuts % (Manual) Lymphocytes % (Manual) Nucleated RBC % Seg Neutrophils # Seg Neutrophils # Man Lymphocytes # (Manual) D-Dimer ABG pH POC ABG pCO2 POC ABG pO2 57.2 L ABG pO2 ABG HCO3 ABG O2 Saturation ABG Base Excess ABG Hemoglobin ABG Oxyhemoglobin ABG Sodium ABG Potassium ABG Chloride ABG Glucose 180 H Oxyhemoglobin Carboxyhemoglobin Sodium Potassium Chloride Carbon Dioxide BUN Creatinine Glucose POC Glucose 199 H 143 H Hemoglobin A1c Lactic Acid Calcium Magnesium Ferritin Total Bilirubin AST ALT Alkaline Phosphatase Lactate Dehydrogenase Total Creatine Kinase C-Reactive Protein Total Protein Albumin Triglycerides Arterial Blood Glucose 180 H Arterial Blood Ionized Calcium 4.5 L Ur Specific [place] Urine WBC (Auto) Vancomycin Trough Coronavirus (PCR) 11/24/20 11/24/20 11/24/20 12:14 17:47 23:47 WBC RBC Hgb Hct MCHC RDW Plt Count Lymph % (Auto) [place] % (Auto) Lymph # (Auto) [place] # (Auto) Baso # (Auto) Seg Neutrophils % Seg Neuts % (Manual) Lymphocytes % (Manual) Nucleated RBC % Seg Neutrophils # Seg Neutrophils # Man Lymphocytes # (Manual) D-Dimer ABG pH 7.261 L POC ABG pCO2 59.7 H POC ABG pO2 75.7 L ABG pO2 ABG HCO3 ABG O2 Saturation ABG Base Excess ABG Hemoglobin ABG Oxyhemoglobin 92.5 L ABG Sodium ABG Potassium ABG Chloride 108.0 H ABG Glucose 150 H Oxyhemoglobin Carboxyhemoglobin Sodium Potassium Chloride Carbon Dioxide BUN Creatinine Glucose POC Glucose 223 H 179 H Hemoglobin A1c Lactic Acid Calcium Magnesium Ferritin Total Bilirubin AST ALT Alkaline Phosphatase Lactate Dehydrogenase Total Creatine Kinase C-Reactive Protein Total Protein Albumin Triglycerides Arterial Blood Glucose 150 H Arterial Blood Ionized Calcium Ur Specific [place] Urine WBC (Auto) Vancomycin Trough Coronavirus (PCR) 11/25/20 11/25/20 11/25/20 03:29 05:07 05:15 WBC 13.9 H RBC Hgb Hct MCHC RDW Plt Count Lymph % (Auto) [place] % (Auto) Lymph # (Auto) [place] # (Auto) Baso # (Auto) Seg Neutrophils % Seg Neuts % (Manual) 97.0 H Lymphocytes % (Manual) Nucleated RBC % Seg Neutrophils # Seg Neutrophils # Man 13.5 H Lymphocytes # (Manual) 0.0 L D-Dimer ABG pH 7.272 L POC ABG pCO2 69.0 H POC ABG pO2 132.9 H ABG pO2 ABG HCO3 ABG O2 Saturation ABG Base Excess ABG Hemoglobin ABG Oxyhemoglobin ABG Sodium ABG Potassium ABG Chloride ABG Glucose 174 H Oxyhemoglobin Carboxyhemoglobin Sodium Potassium Chloride Carbon Dioxide BUN Creatinine Glucose POC Glucose 168 H Hemoglobin A1c Lactic Acid Calcium Magnesium Ferritin Total Bilirubin AST ALT Alkaline Phosphatase Lactate Dehydrogenase Total Creatine Kinase C-Reactive Protein Total Protein Albumin Triglycerides Arterial Blood Glucose 174 H Arterial Blood Ionized Calcium Ur Specific [place] Urine WBC (Auto) Vancomycin Trough Coronavirus (PCR) 11/25/20 11/25/20 11/25/20 05:15 11:25 17:35 WBC RBC Hgb Hct MCHC RDW Plt Count Lymph % (Auto) [place] % (Auto) Lymph # (Auto) [place] # (Auto) Baso # (Auto) Seg Neutrophils % Seg Neuts % (Manual) Lymphocytes % (Manual) Nucleated RBC % Seg Neutrophils # Seg Neutrophils # Man Lymphocytes # (Manual) D-Dimer ABG pH POC ABG pCO2 POC ABG pO2 ABG pO2 ABG HCO3 ABG O2 Saturation ABG Base Excess ABG Hemoglobin ABG Oxyhemoglobin ABG Sodium ABG Potassium ABG Chloride ABG Glucose Oxyhemoglobin Carboxyhemoglobin Sodium Potassium Chloride Carbon Dioxide BUN 29 H Creatinine 0.5 L Glucose 161 H POC Glucose 224 H 228 H Hemoglobin A1c Lactic Acid Calcium 7.8 L Magnesium Ferritin Total Bilirubin AST 89 H ALT 129 H Alkaline Phosphatase Lactate Dehydrogenase Total Creatine Kinase C-Reactive Protein Total Protein 5.8 L Albumin 2.5 L Triglycerides Arterial Blood Glucose Arterial Blood Ionized Calcium Ur Specific [place] Urine WBC (Auto) Vancomycin Trough Coronavirus (PCR) 11/25/20 11/25/20 11/26/20 20:45 23:28 04:00 WBC RBC Hgb Hct MCHC RDW Plt Count Lymph % (Auto) [place] % (Auto) Lymph # (Auto) [place] # (Auto) Baso # (Auto) Seg Neutrophils % Seg Neuts % (Manual) Lymphocytes % (Manual) Nucleated RBC % Seg Neutrophils # Seg Neutrophils # Man Lymphocytes # (Manual) D-Dimer ABG pH POC ABG pCO2 POC ABG pO2 ABG pO2 ABG HCO3 ABG O2 Saturation ABG Base Excess ABG Hemoglobin ABG Oxyhemoglobin ABG Sodium ABG Potassium ABG Chloride ABG Glucose Oxyhemoglobin Carboxyhemoglobin Sodium Potassium Chloride Carbon Dioxide BUN Creatinine Glucose POC Glucose 177 H 243 H Hemoglobin A1c Lactic Acid Calcium Magnesium Ferritin 778.8 H Total Bilirubin AST ALT Alkaline Phosphatase Lactate Dehydrogenase Total Creatine Kinase C-Reactive Protein Total Protein Albumin Triglycerides Arterial Blood Glucose Arterial Blood Ionized Calcium Ur Specific [place] Urine WBC (Auto) Vancomycin Trough Coronavirus (PCR) 11/26/20 11/26/20 11/26/20 04:00 05:34 06:04 WBC RBC Hgb Hct MCHC RDW Plt Count Lymph % (Auto) [place] % (Auto) Lymph # (Auto) [place] # (Auto) Baso # (Auto) Seg Neutrophils % Seg Neuts % (Manual) Lymphocytes % (Manual) Nucleated RBC % Seg Neutrophils # Seg Neutrophils # Man Lymphocytes # (Manual) D-Dimer 926.11 H ABG pH POC ABG pCO2 POC ABG pO2 ABG pO2 ABG HCO3 ABG O2 Saturation ABG Base Excess ABG Hemoglobin ABG Oxyhemoglobin ABG Sodium ABG Potassium ABG Chloride ABG Glucose Oxyhemoglobin Carboxyhemoglobin Sodium Potassium Chloride Carbon Dioxide 39 H D BUN 30 H Creatinine 0.5 L Glucose 193 H POC Glucose 178 H Hemoglobin A1c Lactic Acid Calcium 7.7 L Magnesium Ferritin Total Bilirubin AST 65 H ALT 132 H Alkaline Phosphatase Lactate Dehydrogenase 288 H Total Creatine Kinase C-Reactive Protein 1.40 H Total Protein 5.7 L Albumin 2.4 L Triglycerides Arterial Blood Glucose Arterial Blood Ionized Calcium Ur Specific [place] Urine WBC (Auto) Vancomycin Trough Coronavirus (PCR) 11/26/20 11/26/20 11/26/20 06:04 08:47 11:20 WBC 12.4 H RBC Hgb Hct MCHC RDW Plt Count Lymph % (Auto) [place] % (Auto) Lymph # (Auto) [place] # (Auto) Baso # (Auto) Seg Neutrophils % Seg Neuts % (Manual) 98.0 H Lymphocytes % (Manual) 1.0 L Nucleated RBC % Seg Neutrophils # Seg Neutrophils # Man 12.2 H Lymphocytes # (Manual) 0.1 L D-Dimer ABG pH POC ABG pCO2 75.2 H POC ABG pO2 61.9 L ABG pO2 ABG HCO3 ABG O2 Saturation ABG Base Excess ABG Hemoglobin ABG Oxyhemoglobin 90.3 L ABG Sodium ABG Potassium ABG Chloride ABG Glucose 243 H Oxyhemoglobin Carboxyhemoglobin Sodium Potassium Chloride Carbon Dioxide BUN Creatinine Glucose POC Glucose 255 H Hemoglobin A1c Lactic Acid Calcium Magnesium Ferritin Total Bilirubin AST ALT Alkaline Phosphatase Lactate Dehydrogenase Total Creatine Kinase C-Reactive Protein Total Protein Albumin Triglycerides Arterial Blood Glucose 243 H Arterial Blood Ionized Calcium Ur Specific [place] Urine WBC (Auto) Vancomycin Trough Coronavirus (PCR) 11/26/20 11/26/20 11/26/20 16:20 17:15 23:41 WBC RBC Hgb Hct MCHC RDW Plt Count Lymph % (Auto) [place] % (Auto) Lymph # (Auto) [place] # (Auto) Baso # (Auto) Seg Neutrophils % Seg Neuts % (Manual) Lymphocytes % (Manual) Nucleated RBC % Seg Neutrophils # Seg Neutrophils # Man Lymphocytes # (Manual) D-Dimer ABG pH POC ABG pCO2 66.6 H POC ABG pO2 78.1 L ABG pO2 ABG HCO3 ABG O2 Saturation ABG Base Excess ABG Hemoglobin ABG Oxyhemoglobin ABG Sodium ABG Potassium ABG Chloride ABG Glucose 244 H Oxyhemoglobin Carboxyhemoglobin Sodium Potassium Chloride Carbon Dioxide BUN Creatinine Glucose POC Glucose 219 H 210 H Hemoglobin A1c Lactic Acid Calcium Magnesium Ferritin Total Bilirubin AST ALT Alkaline Phosphatase Lactate Dehydrogenase Total Creatine Kinase C-Reactive Protein Total Protein Albumin Triglycerides Arterial Blood Glucose 244 H Arterial Blood Ionized Calcium Ur Specific [place] Urine WBC (Auto) Vancomycin Trough Coronavirus (PCR) 11/27/20 11/27/20 11/27/20 04:46 05:38 06:25 WBC 13.8 H RBC Hgb Hct MCHC RDW Plt Count Lymph % (Auto) 2.0 L [place] % (Auto) Lymph # (Auto) 0.3 L [place] # (Auto) Baso # (Auto) Seg Neutrophils % Seg Neuts % (Manual) 96.0 H Lymphocytes % (Manual) Nucleated RBC % Seg Neutrophils # 12.7 H Seg Neutrophils # Man 13.2 H Lymphocytes # (Manual) 0.0 L D-Dimer ABG pH POC ABG pCO2 63.0 H POC ABG pO2 53.6 L ABG pO2 ABG HCO3 ABG O2 Saturation ABG Base Excess ABG Hemoglobin ABG Oxyhemoglobin 87.8 L ABG Sodium 115.4 L ABG Potassium ABG Chloride ABG Glucose 219 H Oxyhemoglobin Carboxyhemoglobin Sodium Potassium Chloride Carbon Dioxide BUN Creatinine Glucose POC Glucose 227 H Hemoglobin A1c Lactic Acid Calcium Magnesium Ferritin Total Bilirubin AST ALT Alkaline Phosphatase Lactate Dehydrogenase Total Creatine Kinase C-Reactive Protein Total Protein Albumin Triglycerides Arterial Blood Glucose 219 H Arterial Blood Ionized Calcium Ur Specific [place] Urine WBC (Auto) Vancomycin Trough Coronavirus (PCR) 11/27/20 11/27/20 11/27/20 06:25 18:05 23:29 WBC RBC Hgb Hct MCHC RDW Plt Count Lymph % (Auto) [place] % (Auto) Lymph # (Auto) [place] # (Auto) Baso # (Auto) Seg Neutrophils % Seg Neuts % (Manual) Lymphocytes % (Manual) Nucleated RBC % Seg Neutrophils # Seg Neutrophils # Man Lymphocytes # (Manual) D-Dimer ABG pH POC ABG pCO2 POC ABG pO2 ABG pO2 ABG HCO3 ABG O2 Saturation ABG Base Excess ABG Hemoglobin ABG Oxyhemoglobin ABG Sodium ABG Potassium ABG Chloride ABG Glucose Oxyhemoglobin Carboxyhemoglobin Sodium Potassium Chloride Carbon Dioxide 38 H BUN 34 H Creatinine 0.4 L Glucose 243 H POC Glucose 329 H 227 H Hemoglobin A1c Lactic Acid Calcium 7.9 L Magnesium Ferritin Total Bilirubin AST 50 H ALT 110 H Alkaline Phosphatase Lactate Dehydrogenase Total Creatine Kinase C-Reactive Protein Total Protein 6.1 L Albumin 2.4 L Triglycerides Arterial Blood Glucose Arterial Blood Ionized Calcium Ur Specific [place] Urine WBC (Auto) Vancomycin Trough Coronavirus (PCR) 11/28/20 11/28/20 11/28/20 03:45 03:45 03:46 WBC 12.2 H RBC Hgb Hct MCHC RDW Plt Count Lymph % (Auto) [place] % (Auto) Lymph # (Auto) [place] # (Auto) Baso # (Auto) Seg Neutrophils % Seg Neuts % (Manual) 93.0 H Lymphocytes % (Manual) 2.0 L Nucleated RBC % Seg Neutrophils # Seg Neutrophils # Man 11.3 H Lymphocytes # (Manual) 0.2 L D-Dimer ABG pH POC ABG pCO2 68.4 H POC ABG pO2 55.4 L ABG pO2 ABG HCO3 ABG O2 Saturation ABG Base Excess ABG Hemoglobin ABG Oxyhemoglobin ABG Sodium ABG Potassium ABG Chloride ABG Glucose 197 H Oxyhemoglobin Carboxyhemoglobin Sodium Potassium Chloride Carbon Dioxide 36 H BUN 37 H Creatinine 0.4 L Glucose 194 H POC Glucose Hemoglobin A1c Lactic Acid Calcium 8.1 L Magnesium Ferritin Total Bilirubin AST ALT 86 H Alkaline Phosphatase Lactate Dehydrogenase Total Creatine Kinase C-Reactive Protein Total Protein 6.0 L Albumin 2.3 L Triglycerides Arterial Blood Glucose 197 H Arterial Blood Ionized Calcium Ur Specific [place] Urine WBC (Auto) Vancomycin Trough Coronavirus (PCR) 11/28/20 11/28/20 11/29/20 05:24 12:21 04:41 WBC RBC Hgb Hct MCHC RDW Plt Count Lymph % (Auto) [place] % (Auto) Lymph # (Auto) [place] # (Auto) Baso # (Auto) Seg Neutrophils % Seg Neuts % (Manual) Lymphocytes % (Manual) Nucleated RBC % Seg Neutrophils # Seg Neutrophils # Man Lymphocytes # (Manual) D-Dimer ABG pH POC ABG pCO2 55.1 H POC ABG pO2 53.6 L ABG pO2 ABG HCO3 ABG O2 Saturation ABG Base Excess ABG Hemoglobin ABG Oxyhemoglobin 87.1 L ABG Sodium 131.2 L ABG Potassium ABG Chloride ABG Glucose 164 H Oxyhemoglobin Carboxyhemoglobin Sodium Potassium Chloride Carbon Dioxide BUN Creatinine Glucose POC Glucose 173 H 126 H Hemoglobin A1c Lactic Acid Calcium Magnesium Ferritin Total Bilirubin AST ALT Alkaline Phosphatase Lactate Dehydrogenase Total Creatine Kinase C-Reactive Protein Total Protein Albumin Triglycerides Arterial Blood Glucose 164 H Arterial Blood Ionized Calcium 4.4 L Ur Specific [place] Urine WBC (Auto) Vancomycin Trough Coronavirus (PCR) 11/29/20 11/29/20 11/29/20 05:29 12:41 13:28 WBC RBC Hgb Hct MCHC RDW Plt Count Lymph % (Auto) [place] % (Auto) Lymph # (Auto) [place] # (Auto) Baso # (Auto) Seg Neutrophils % Seg Neuts % (Manual) Lymphocytes % (Manual) Nucleated RBC % Seg Neutrophils # Seg Neutrophils # Man Lymphocytes # (Manual) D-Dimer ABG pH POC ABG pCO2 POC ABG pO2 ABG pO2 ABG HCO3 ABG O2 Saturation ABG Base Excess ABG Hemoglobin ABG Oxyhemoglobin ABG Sodium ABG Potassium ABG Chloride ABG Glucose Oxyhemoglobin Carboxyhemoglobin Sodium Potassium Chloride Carbon Dioxide 40 H BUN 32 H Creatinine 0.4 L Glucose 274 H POC Glucose 173 H 257 H Hemoglobin A1c Lactic Acid Calcium 7.2 L Magnesium Ferritin Total Bilirubin AST 57 H ALT 102 H Alkaline Phosphatase Lactate Dehydrogenase Total Creatine Kinase C-Reactive Protein Total Protein 5.7 L Albumin 2.1 L Triglycerides Arterial Blood Glucose Arterial Blood Ionized Calcium Ur Specific [place] Urine WBC (Auto) Vancomycin Trough Coronavirus (PCR) 11/29/20 11/29/20 11/29/20 15:40 17:36 21:26 WBC RBC Hgb Hct MCHC RDW Plt Count Lymph % (Auto) [place] % (Auto) Lymph # (Auto) [place] # (Auto) Baso # (Auto) Seg Neutrophils % Seg Neuts % (Manual) Lymphocytes % (Manual) Nucleated RBC % Seg Neutrophils # Seg Neutrophils # Man Lymphocytes # (Manual) D-Dimer ABG pH POC ABG pCO2 POC ABG pO2 ABG pO2 ABG HCO3 ABG O2 Saturation ABG Base Excess ABG Hemoglobin ABG Oxyhemoglobin ABG Sodium ABG Potassium ABG Chloride ABG Glucose Oxyhemoglobin Carboxyhemoglobin Sodium Potassium Chloride Carbon Dioxide BUN Creatinine Glucose POC Glucose 240 H 244 H Hemoglobin A1c Lactic Acid Calcium Magnesium Ferritin Total Bilirubin AST ALT Alkaline Phosphatase Lactate Dehydrogenase Total Creatine Kinase C-Reactive Protein Total Protein Albumin Triglycerides Arterial Blood Glucose Arterial Blood Ionized Calcium Ur Specific [place] Urine WBC (Auto) Vancomycin Trough 4.0 L Coronavirus (PCR) 11/29/20 11/30/20 11/30/20 23:26 03:30 03:30 WBC RBC Hgb Hct MCHC RDW Plt Count Lymph % (Auto) [place] % (Auto) Lymph # (Auto) [place] # (Auto) Baso # (Auto) Seg Neutrophils % Seg Neuts % (Manual) 97.0 H Lymphocytes % (Manual) 1.0 L Nucleated RBC % Seg Neutrophils # Seg Neutrophils # Man 9.9 H Lymphocytes # (Manual) 0.1 L D-Dimer ABG pH POC ABG pCO2 POC ABG pO2 ABG pO2 ABG HCO3 ABG O2 Saturation ABG Base Excess ABG Hemoglobin ABG Oxyhemoglobin ABG Sodium ABG Potassium ABG Chloride ABG Glucose Oxyhemoglobin Carboxyhemoglobin Sodium Potassium Chloride Carbon Dioxide 38 H BUN 34 H Creatinine 0.4 L Glucose 305 H POC Glucose 283 H Hemoglobin A1c Lactic Acid Calcium 7.6 L Magnesium Ferritin Total Bilirubin AST ALT 89 H Alkaline Phosphatase Lactate Dehydrogenase Total Creatine Kinase C-Reactive Protein Total Protein 6.0 L Albumin 2.3 L Triglycerides Arterial Blood Glucose Arterial Blood Ionized Calcium Ur Specific [place] Urine WBC (Auto) Vancomycin Trough Coronavirus (PCR) 11/30/20 11/30/20 11/30/20 03:57 05:22 12:05 WBC RBC Hgb Hct MCHC RDW Plt Count Lymph % (Auto) [place] % (Auto) Lymph # (Auto) [place] # (Auto) Baso # (Auto) Seg Neutrophils % Seg Neuts % (Manual) Lymphocytes % (Manual) Nucleated RBC % Seg Neutrophils # Seg Neutrophils # Man Lymphocytes # (Manual) D-Dimer ABG pH POC ABG pCO2 60.8 H POC ABG pO2 51.1 L ABG pO2 ABG HCO3 ABG O2 Saturation ABG Base Excess ABG Hemoglobin ABG Oxyhemoglobin 84.6 L ABG Sodium ABG Potassium ABG Chloride ABG Glucose 315 H Oxyhemoglobin Carboxyhemoglobin Sodium Potassium Chloride Carbon Dioxide BUN Creatinine Glucose POC Glucose 295 H 413 H Hemoglobin A1c Lactic Acid Calcium Magnesium Ferritin Total Bilirubin AST ALT Alkaline Phosphatase Lactate Dehydrogenase Total Creatine Kinase C-Reactive Protein Total Protein Albumin Triglycerides Arterial Blood Glucose 315 H Arterial Blood Ionized Calcium 4.5 L Ur Specific [place] Urine WBC (Auto) Vancomycin Trough Coronavirus (PCR) 11/30/20 11/30/20 12/01/20 17:24 23:25 02:14 WBC RBC Hgb Hct MCHC RDW Plt Count Lymph % (Auto) [place] % (Auto) Lymph # (Auto) [place] # (Auto) Baso # (Auto) Seg Neutrophils % Seg Neuts % (Manual) Lymphocytes % (Manual) Nucleated RBC % Seg Neutrophils # Seg Neutrophils # Man Lymphocytes # (Manual) D-Dimer ABG pH 7.278 L POC ABG pCO2 78.1 H POC ABG pO2 79.5 L ABG pO2 ABG HCO3 ABG O2 Saturation ABG Base Excess ABG Hemoglobin 11.6 L ABG Oxyhemoglobin ABG Sodium 134.5 L ABG Potassium 4.6 H ABG Chloride ABG Glucose 286 H Oxyhemoglobin Carboxyhemoglobin Sodium Potassium Chloride Carbon Dioxide BUN Creatinine Glucose POC Glucose 305 H 302 H Hemoglobin A1c Lactic Acid Calcium Magnesium Ferritin Total Bilirubin AST ALT Alkaline Phosphatase Lactate Dehydrogenase Total Creatine Kinase C-Reactive Protein Total Protein Albumin Triglycerides Arterial Blood Glucose 286 H Arterial Blood Ionized Calcium Ur Specific [place] Urine WBC (Auto) Vancomycin Trough Coronavirus (PCR) 12/01/20 12/01/20 12/01/20 03:35 03:35 05:22 WBC 13.4 H RBC 3.54 L Hgb 10.4 L Hct 31.8 L MCHC RDW Plt Count Lymph % (Auto) [place] % (Auto) Lymph # (Auto) [place] # (Auto) Baso # (Auto) Seg Neutrophils % Seg Neuts % (Manual) 95.0 H Lymphocytes % (Manual) 3.0 L Nucleated RBC % Seg Neutrophils # Seg Neutrophils # Man 12.7 H Lymphocytes # (Manual) 0.4 L D-Dimer ABG pH POC ABG pCO2 POC ABG pO2 ABG pO2 ABG HCO3 ABG O2 Saturation ABG Base Excess ABG Hemoglobin ABG Oxyhemoglobin ABG Sodium ABG Potassium ABG Chloride ABG Glucose Oxyhemoglobin Carboxyhemoglobin Sodium Potassium Chloride Carbon Dioxide 35 H BUN 34 H Creatinine 0.5 L Glucose 279 H POC Glucose 259 H Hemoglobin A1c Lactic Acid Calcium 7.6 L Magnesium Ferritin Total Bilirubin AST ALT 63 H Alkaline Phosphatase Lactate Dehydrogenase Total Creatine Kinase C-Reactive Protein Total Protein 4.8 L Albumin 2.1 L Triglycerides Arterial Blood Glucose Arterial Blood Ionized Calcium Ur Specific [place] Urine WBC (Auto) Vancomycin Trough Coronavirus (PCR) 12/01/20 12/01/20 12/01/20 12:05 17:40 23:46 WBC RBC Hgb Hct MCHC RDW Plt Count Lymph % (Auto) [place] % (Auto) Lymph # (Auto) [place] # (Auto) Baso # (Auto) Seg Neutrophils % Seg Neuts % (Manual) Lymphocytes % (Manual) Nucleated RBC % Seg Neutrophils # Seg Neutrophils # Man Lymphocytes # (Manual) D-Dimer ABG pH POC ABG pCO2 POC ABG pO2 ABG pO2 ABG HCO3 ABG O2 Saturation ABG Base Excess ABG Hemoglobin ABG Oxyhemoglobin ABG Sodium ABG Potassium ABG Chloride ABG Glucose Oxyhemoglobin Carboxyhemoglobin Sodium Potassium Chloride Carbon Dioxide BUN Creatinine Glucose POC Glucose 197 H 244 H 284 H Hemoglobin A1c Lactic Acid Calcium Magnesium Ferritin Total Bilirubin AST ALT Alkaline Phosphatase Lactate Dehydrogenase Total Creatine Kinase C-Reactive Protein Total Protein Albumin Triglycerides Arterial Blood Glucose Arterial Blood Ionized Calcium Ur Specific [place] Urine WBC (Auto) Vancomycin Trough Coronavirus (PCR) 12/02/20 12/02/20 12/02/20 02:14 03:03 04:11 WBC 16.5 H RBC 3.55 L Hgb 10.5 L Hct 31.9 L MCHC RDW Plt Count Lymph % (Auto) [place] % (Auto) Lymph # (Auto) [place] # (Auto) Baso # (Auto) Seg Neutrophils % Seg Neuts % (Manual) 90.0 H Lymphocytes % (Manual) 3.0 L Nucleated RBC % Seg Neutrophils # Seg Neutrophils # Man 14.9 H Lymphocytes # (Manual) 0.5 L D-Dimer ABG pH POC ABG pCO2 74.8 H POC ABG pO2 58.9 L ABG pO2 ABG HCO3 ABG O2 Saturation ABG Base Excess ABG Hemoglobin 11.5 L ABG Oxyhemoglobin ABG Sodium ABG Potassium ABG Chloride ABG Glucose 264 H Oxyhemoglobin Carboxyhemoglobin Sodium Potassium Chloride Carbon Dioxide 37 H BUN 30 H Creatinine 0.4 L Glucose 245 H POC Glucose Hemoglobin A1c Lactic Acid Calcium 7.5 L Magnesium Ferritin Total Bilirubin AST ALT Alkaline Phosphatase Lactate Dehydrogenase Total Creatine Kinase C-Reactive Protein Total Protein 5.2 L Albumin 2.2 L Triglycerides Arterial Blood Glucose 264 H Arterial Blood Ionized Calcium 4.5 L Ur Specific [place] Urine WBC (Auto) Vancomycin Trough Coronavirus (PCR) 12/02/20 12/02/20 12/02/20 05:19 11:46 17:52 WBC RBC Hgb Hct MCHC RDW Plt Count Lymph % (Auto) [place] % (Auto) Lymph # (Auto) [place] # (Auto) Baso # (Auto) Seg Neutrophils % Seg Neuts % (Manual) Lymphocytes % (Manual) Nucleated RBC % Seg Neutrophils # Seg Neutrophils # Man Lymphocytes # (Manual) D-Dimer ABG pH POC ABG pCO2 POC ABG pO2 ABG pO2 ABG HCO3 ABG O2 Saturation ABG Base Excess ABG Hemoglobin ABG Oxyhemoglobin ABG Sodium ABG Potassium ABG Chloride ABG Glucose Oxyhemoglobin Carboxyhemoglobin Sodium Potassium Chloride Carbon Dioxide BUN Creatinine Glucose POC Glucose 238 H 236 H 233 H Hemoglobin A1c Lactic Acid Calcium Magnesium Ferritin Total Bilirubin AST ALT Alkaline Phosphatase Lactate Dehydrogenase Total Creatine Kinase C-Reactive Protein Total Protein Albumin Triglycerides Arterial Blood Glucose Arterial Blood Ionized Calcium Ur Specific [place] Urine WBC (Auto) Vancomycin Trough Coronavirus (PCR) 12/02/20 12/03/20 12/03/20 23:23 03:21 04:35 WBC RBC Hgb Hct MCHC RDW Plt Count 112 L Lymph % (Auto) [place] % (Auto) Lymph # (Auto) [place] # (Auto) Baso # (Auto) Seg Neutrophils % Seg Neuts % (Manual) 93.0 H Lymphocytes % (Manual) 4.0 L Nucleated RBC % Seg Neutrophils # Seg Neutrophils # Man 9.1 H Lymphocytes # (Manual) 0.4 L D-Dimer ABG pH 7.299 L POC ABG pCO2 82.1 H POC ABG pO2 62.4 L ABG pO2 ABG HCO3 ABG O2 Saturation ABG Base Excess ABG Hemoglobin 11.5 L ABG Oxyhemoglobin 89.6 L ABG Sodium 134.3 L ABG Potassium ABG Chloride 95.0 L ABG Glucose 203 H Oxyhemoglobin Carboxyhemoglobin Sodium Potassium Chloride Carbon Dioxide BUN Creatinine Glucose POC Glucose 213 H Hemoglobin A1c Lactic Acid Calcium Magnesium Ferritin Total Bilirubin AST ALT Alkaline Phosphatase Lactate Dehydrogenase Total Creatine Kinase C-Reactive Protein Total Protein Albumin Triglycerides Arterial Blood Glucose 203 H Arterial Blood Ionized Calcium 4.5 L Ur Specific [place] Urine WBC (Auto) Vancomycin Trough Coronavirus (PCR) 12/03/20 12/03/20 12/03/20 04:35 05:42 11:28 WBC RBC Hgb Hct MCHC RDW Plt Count Lymph % (Auto) [place] % (Auto) Lymph # (Auto) [place] # (Auto) Baso # (Auto) Seg Neutrophils % Seg Neuts % (Manual) Lymphocytes % (Manual) Nucleated RBC % Seg Neutrophils # Seg Neutrophils # Man Lymphocytes # (Manual) D-Dimer ABG pH POC ABG pCO2 POC ABG pO2 ABG pO2 ABG HCO3 ABG O2 Saturation ABG Base Excess ABG Hemoglobin ABG Oxyhemoglobin ABG Sodium ABG Potassium ABG Chloride ABG Glucose Oxyhemoglobin Carboxyhemoglobin Sodium Potassium Chloride 97.8 L Carbon Dioxide 43 H* BUN 25 H Creatinine 0.3 L Glucose 214 H POC Glucose 193 H 211 H Hemoglobin A1c Lactic Acid Calcium 7.7 L Magnesium Ferritin Total Bilirubin AST ALT 63 H Alkaline Phosphatase 132 H Lactate Dehydrogenase Total Creatine Kinase C-Reactive Protein Total Protein 5.1 L Albumin 2.4 L Triglycerides Arterial Blood Glucose Arterial Blood Ionized Calcium Ur Specific [place] Urine WBC (Auto) Vancomycin Trough Coronavirus (PCR) 12/03/20 12/03/20 12/04/20 17:45 23:57 00:11 WBC RBC Hgb Hct MCHC RDW Plt Count Lymph % (Auto) [place] % (Auto) Lymph # (Auto) [place] # (Auto) Baso # (Auto) Seg Neutrophils % Seg Neuts % (Manual) Lymphocytes % (Manual) Nucleated RBC % Seg Neutrophils # Seg Neutrophils # Man Lymphocytes # (Manual) D-Dimer ABG pH POC ABG pCO2 POC ABG pO2 ABG pO2 ABG HCO3 ABG O2 Saturation ABG Base Excess ABG Hemoglobin ABG Oxyhemoglobin ABG Sodium ABG Potassium ABG Chloride ABG Glucose Oxyhemoglobin Carboxyhemoglobin Sodium Potassium Chloride Carbon Dioxide BUN Creatinine Glucose POC Glucose 231 H 240 H 239 H Hemoglobin A1c Lactic Acid Calcium Magnesium Ferritin Total Bilirubin AST ALT Alkaline Phosphatase Lactate Dehydrogenase Total Creatine Kinase C-Reactive Protein Total Protein Albumin Triglycerides Arterial Blood Glucose Arterial Blood Ionized Calcium Ur Specific [place] Urine WBC (Auto) Vancomycin Trough Coronavirus (PCR) 12/04/20 12/04/20 12/04/20 04:00 05:20 05:34 WBC RBC Hgb Hct MCHC RDW Plt Count Lymph % (Auto) [place] % (Auto) Lymph # (Auto) [place] # (Auto) Baso # (Auto) Seg Neutrophils % Seg Neuts % (Manual) Lymphocytes % (Manual) Nucleated RBC % Seg Neutrophils # Seg Neutrophils # Man Lymphocytes # (Manual) D-Dimer ABG pH POC ABG pCO2 84.4 H POC ABG pO2 68.0 L ABG pO2 ABG HCO3 ABG O2 Saturation ABG Base Excess ABG Hemoglobin 11.6 L ABG Oxyhemoglobin ABG Sodium 130.9 L ABG Potassium ABG Chloride 90.0 L ABG Glucose 244 H Oxyhemoglobin Carboxyhemoglobin Sodium Potassium Chloride Carbon Dioxide BUN Creatinine Glucose POC Glucose 241 H 213 H Hemoglobin A1c Lactic Acid Calcium Magnesium Ferritin Total Bilirubin AST ALT Alkaline Phosphatase Lactate Dehydrogenase Total Creatine Kinase C-Reactive Protein Total Protein Albumin Triglycerides Arterial Blood Glucose 244 H Arterial Blood Ionized Calcium 4.4 L Ur Specific [place] Urine WBC (Auto) Vancomycin Trough Coronavirus (PCR) 12/04/20 12/04/20 12/04/20 11:36 16:53 23:32 WBC RBC Hgb Hct MCHC RDW Plt Count Lymph % (Auto) [place] % (Auto) Lymph # (Auto) [place] # (Auto) Baso # (Auto) Seg Neutrophils % Seg Neuts % (Manual) Lymphocytes % (Manual) Nucleated RBC % Seg Neutrophils # Seg Neutrophils # Man Lymphocytes # (Manual) D-Dimer ABG pH POC ABG pCO2 POC ABG pO2 ABG pO2 ABG HCO3 ABG O2 Saturation ABG Base Excess ABG Hemoglobin ABG Oxyhemoglobin ABG Sodium ABG Potassium ABG Chloride ABG Glucose Oxyhemoglobin Carboxyhemoglobin Sodium Potassium Chloride Carbon Dioxide BUN Creatinine Glucose POC Glucose 196 H 127 H 230 H Hemoglobin A1c Lactic Acid Calcium Magnesium Ferritin Total Bilirubin AST ALT Alkaline Phosphatase Lactate Dehydrogenase Total Creatine Kinase C-Reactive Protein Total Protein Albumin Triglycerides Arterial Blood Glucose Arterial Blood Ionized Calcium Ur Specific [place] Urine WBC (Auto) Vancomycin Trough Coronavirus (PCR) 12/04/20 12/05/20 12/05/20 Unknown 04:16 05:21 WBC RBC Hgb Hct MCHC RDW Plt Count Lymph % (Auto) [place] % (Auto) Lymph # (Auto) [place] # (Auto) Baso # (Auto) Seg Neutrophils % Seg Neuts % (Manual) Lymphocytes % (Manual) Nucleated RBC % Seg Neutrophils # Seg Neutrophils # Man Lymphocytes # (Manual) D-Dimer ABG pH POC ABG pCO2 86.7 H POC ABG pO2 58.0 L ABG pO2 ABG HCO3 ABG O2 Saturation ABG Base Excess ABG Hemoglobin 11.6 L ABG Oxyhemoglobin 89 L ABG Sodium 130.1 L ABG Potassium 4.9 H ABG Chloride 89.0 L ABG Glucose 254 H Oxyhemoglobin Carboxyhemoglobin Sodium 136 L Potassium Chloride 90.0 L Carbon Dioxide 46 H* BUN 24 H Creatinine 0.3 L Glucose 226 H POC Glucose 213 H Hemoglobin A1c Lactic Acid Calcium 7.6 L Magnesium Ferritin Total Bilirubin AST 46 H ALT 78 H Alkaline Phosphatase 172 H Lactate Dehydrogenase Total Creatine Kinase C-Reactive Protein Total Protein 6.0 L Albumin 2.8 L Triglycerides 156 H Arterial Blood Glucose 254 H Arterial Blood Ionized Calcium 4.4 L Ur Specific [place] Urine WBC (Auto) Vancomycin Trough Coronavirus (PCR) 12/05/20 12/05/20 12/05/20 11:22 17:26 23:38 WBC RBC Hgb Hct MCHC RDW Plt Count Lymph % (Auto) [place] % (Auto) Lymph # (Auto) [place] # (Auto) Baso # (Auto) Seg Neutrophils % Seg Neuts % (Manual) Lymphocytes % (Manual) Nucleated RBC % Seg Neutrophils # Seg Neutrophils # Man Lymphocytes # (Manual) D-Dimer ABG pH POC ABG pCO2 POC ABG pO2 ABG pO2 ABG HCO3 ABG O2 Saturation ABG Base Excess ABG Hemoglobin ABG Oxyhemoglobin ABG Sodium ABG Potassium ABG Chloride ABG Glucose Oxyhemoglobin Carboxyhemoglobin Sodium Potassium Chloride Carbon Dioxide BUN Creatinine Glucose POC Glucose 212 H 157 H 204 H Hemoglobin A1c Lactic Acid Calcium Magnesium Ferritin Total Bilirubin AST ALT Alkaline Phosphatase Lactate Dehydrogenase Total Creatine Kinase C-Reactive Protein Total Protein Albumin Triglycerides Arterial Blood Glucose Arterial Blood Ionized Calcium Ur Specific [place] Urine WBC (Auto) Vancomycin Trough Coronavirus (PCR) 12/06/20 12/06/20 12/06/20 04:31 04:31 05:12 WBC 17.0 H RBC 3.63 L Hgb 10.8 L D Hct 32.6 L D MCHC RDW Plt Count Lymph % (Auto) [place] % (Auto) Lymph # (Auto) [place] # (Auto) Baso # (Auto) Seg Neutrophils % Seg Neuts % (Manual) Lymphocytes % (Manual) Nucleated RBC % Seg Neutrophils # Seg Neutrophils # Man Lymphocytes # (Manual) D-Dimer ABG pH POC ABG pCO2 85.9 H POC ABG pO2 57.6 L ABG pO2 ABG HCO3 ABG O2 Saturation ABG Base Excess ABG Hemoglobin ABG Oxyhemoglobin ABG Sodium 131.2 L ABG Potassium 4.8 H ABG Chloride 86.0 L ABG Glucose 200 H Oxyhemoglobin Carboxyhemoglobin Sodium 134 L Potassium 5.1 H Chloride 88.4 L Carbon Dioxide 47 H* BUN 23 H Creatinine 0.3 L Glucose 206 H POC Glucose Hemoglobin A1c Lactic Acid Calcium 8.3 L Magnesium Ferritin Total Bilirubin AST 48 H ALT 91 H Alkaline Phosphatase 140 H Lactate Dehydrogenase Total Creatine Kinase C-Reactive Protein Total Protein 5.7 L Albumin 2.6 L Triglycerides Arterial Blood Glucose 200 H Arterial Blood Ionized Calcium 4.4 L Ur Specific [place] Urine WBC (Auto) Vancomycin Trough Coronavirus (PCR) 12/06/20 12/06/20 12/06/20 05:24 12:18 16:45 WBC RBC Hgb Hct MCHC RDW Plt Count Lymph % (Auto) [place] % (Auto) Lymph # (Auto) [place] # (Auto) Baso # (Auto) Seg Neutrophils % Seg Neuts % (Manual) Lymphocytes % (Manual) Nucleated RBC % Seg Neutrophils # Seg Neutrophils # Man Lymphocytes # (Manual) D-Dimer ABG pH POC ABG pCO2 POC ABG pO2 ABG pO2 ABG HCO3 ABG O2 Saturation ABG Base Excess ABG Hemoglobin ABG Oxyhemoglobin ABG Sodium ABG Potassium ABG Chloride ABG Glucose Oxyhemoglobin Carboxyhemoglobin Sodium Potassium Chloride Carbon Dioxide BUN Creatinine Glucose POC Glucose 186 H 187 H 150 H Hemoglobin A1c Lactic Acid Calcium Magnesium Ferritin Total Bilirubin AST ALT Alkaline Phosphatase Lactate Dehydrogenase Total Creatine Kinase C-Reactive Protein Total Protein Albumin Triglycerides Arterial Blood Glucose Arterial Blood Ionized Calcium Ur Specific [place] Urine WBC (Auto) Vancomycin Trough Coronavirus (PCR) 12/06/20 12/07/20 12/07/20 23:43 05:20 05:21 WBC RBC Hgb Hct MCHC RDW Plt Count Lymph % (Auto) [place] % (Auto) Lymph # (Auto) [place] # (Auto) Baso # (Auto) Seg Neutrophils % Seg Neuts % (Manual) Lymphocytes % (Manual) Nucleated RBC % Seg Neutrophils # Seg Neutrophils # Man Lymphocytes # (Manual) D-Dimer ABG pH POC ABG pCO2 POC ABG pO2 ABG pO2 48.4 L ABG HCO3 50.8 H ABG O2 Saturation 86.2 L ABG Base Excess 22.4 H ABG Hemoglobin 11.0 L ABG Oxyhemoglobin ABG Sodium ABG Potassium ABG Chloride ABG Glucose Oxyhemoglobin 84.0 L Carboxyhemoglobin Sodium Potassium Chloride Carbon Dioxide BUN Creatinine Glucose POC Glucose 153 H 107 H Hemoglobin A1c Lactic Acid Calcium Magnesium Ferritin Total Bilirubin AST ALT Alkaline Phosphatase Lactate Dehydrogenase Total Creatine Kinase C-Reactive Protein Total Protein Albumin Triglycerides Arterial Blood Glucose Arterial Blood Ionized Calcium Ur Specific [place] Urine WBC (Auto) Vancomycin Trough Coronavirus (PCR) 12/07/20 12/07/20 12/07/20 13:20 14:28 17:35 WBC RBC Hgb Hct MCHC RDW Plt Count Lymph % (Auto) [place] % (Auto) Lymph # (Auto) [place] # (Auto) Baso # (Auto) Seg Neutrophils % Seg Neuts % (Manual) Lymphocytes % (Manual) Nucleated RBC % Seg Neutrophils # Seg Neutrophils # Man Lymphocytes # (Manual) D-Dimer ABG pH POC ABG pCO2 74.1 H POC ABG pO2 68.5 L ABG pO2 ABG HCO3 ABG O2 Saturation ABG Base Excess ABG Hemoglobin 10.7 L ABG Oxyhemoglobin 91.9 L ABG Sodium 132.2 L ABG Potassium 4.7 H ABG Chloride 88.0 L ABG Glucose 138 H Oxyhemoglobin Carboxyhemoglobin Sodium 134 L Potassium Chloride 87.4 L Carbon Dioxide 49 H* BUN Creatinine 0.2 L Glucose 132 H POC Glucose 176 H Hemoglobin A1c Lactic Acid Calcium 7.7 L Magnesium Ferritin Total Bilirubin AST ALT Alkaline Phosphatase Lactate Dehydrogenase Total Creatine Kinase C-Reactive Protein Total Protein Albumin Triglycerides Arterial Blood Glucose 138 H Arterial Blood Ionized Calcium 4.0 L Ur Specific [place] Urine WBC (Auto) Vancomycin Trough Coronavirus (PCR) 12/07/20 12/08/20 12/08/20 23:44 04:12 05:29 WBC RBC Hgb Hct MCHC RDW Plt Count Lymph % (Auto) [place] % (Auto) Lymph # (Auto) [place] # (Auto) Baso # (Auto) Seg Neutrophils % Seg Neuts % (Manual) Lymphocytes % (Manual) Nucleated RBC % Seg Neutrophils # Seg Neutrophils # Man Lymphocytes # (Manual) D-Dimer ABG pH POC ABG pCO2 POC ABG pO2 ABG pO2 69.7 L ABG HCO3 50.1 H ABG O2 Saturation ABG Base Excess 21.6 H ABG Hemoglobin 10.9 L ABG Oxyhemoglobin ABG Sodium ABG Potassium ABG Chloride ABG Glucose Oxyhemoglobin 93.2 L Carboxyhemoglobin Sodium Potassium Chloride Carbon Dioxide BUN Creatinine Glucose POC Glucose 143 H 143 H Hemoglobin A1c Lactic Acid Calcium Magnesium Ferritin Total Bilirubin AST ALT Alkaline Phosphatase Lactate Dehydrogenase Total Creatine Kinase C-Reactive Protein Total Protein Albumin Triglycerides Arterial Blood Glucose Arterial Blood Ionized Calcium Ur Specific [place] Urine WBC (Auto) Vancomycin Trough Coronavirus (PCR) 12/08/20 12/08/20 12/09/20 06:10 06:10 04:24 WBC 12.0 H RBC 3.18 L Hgb 9.5 L Hct 28.9 L MCHC RDW Plt Count Lymph % (Auto) [place] % (Auto) Lymph # (Auto) [place] # (Auto) Baso # (Auto) Seg Neutrophils % Seg Neuts % (Manual) 95.0 H Lymphocytes % (Manual) 3.0 L Nucleated RBC % Seg Neutrophils # Seg Neutrophils # Man 11.4 H Lymphocytes # (Manual) 0.4 L D-Dimer ABG pH POC ABG pCO2 76.2 H POC ABG pO2 52.8 L ABG pO2 ABG HCO3 ABG O2 Saturation ABG Base Excess ABG Hemoglobin 11.7 L ABG Oxyhemoglobin ABG Sodium 132.0 L ABG Potassium ABG Chloride 87.0 L ABG Glucose 118 H Oxyhemoglobin Carboxyhemoglobin Sodium 133 L Potassium Chloride 86.3 L Carbon Dioxide 53 H* BUN Creatinine 0.2 L Glucose 156 H POC Glucose Hemoglobin A1c Lactic Acid Calcium 7.6 L Magnesium Ferritin Total Bilirubin AST ALT Alkaline Phosphatase Lactate Dehydrogenase Total Creatine Kinase C-Reactive Protein Total Protein Albumin Triglycerides Arterial Blood Glucose 118 H Arterial Blood Ionized Calcium 4.2 L Ur Specific [place] Urine WBC (Auto) Vancomycin Trough Coronavirus (PCR) 12/09/20 12/09/20 12/09/20 05:44 06:40 06:40 WBC 13.5 H RBC 3.28 L Hgb 9.7 L Hct 29.9 L MCHC RDW Plt Count Lymph % (Auto) [place] % (Auto) Lymph # (Auto) [place] # (Auto) Baso # (Auto) Seg Neutrophils % Seg Neuts % (Manual) Lymphocytes % (Manual) Nucleated RBC % Seg Neutrophils # Seg Neutrophils # Man Lymphocytes # (Manual) D-Dimer ABG pH POC ABG pCO2 POC ABG pO2 ABG pO2 ABG HCO3 ABG O2 Saturation ABG Base Excess ABG Hemoglobin ABG Oxyhemoglobin ABG Sodium ABG Potassium ABG Chloride ABG Glucose Oxyhemoglobin Carboxyhemoglobin Sodium 135 L Potassium Chloride 89.5 L Carbon Dioxide 52 H* BUN Creatinine 0.3 L Glucose 114 H POC Glucose 117 H Hemoglobin A1c Lactic Acid Calcium 7.6 L Magnesium Ferritin Total Bilirubin AST ALT Alkaline Phosphatase Lactate Dehydrogenase Total Creatine Kinase C-Reactive Protein Total Protein Albumin Triglycerides Arterial Blood Glucose Arterial Blood Ionized Calcium Ur Specific [place] Urine WBC (Auto) Vancomycin Trough Coronavirus (PCR) 12/09/20 12/09/20 12/10/20 16:42 21:11 04:28 WBC RBC Hgb Hct MCHC RDW Plt Count Lymph % (Auto) [place] % (Auto) Lymph # (Auto) [place] # (Auto) Baso # (Auto) Seg Neutrophils % Seg Neuts % (Manual) Lymphocytes % (Manual) Nucleated RBC % Seg Neutrophils # Seg Neutrophils # Man Lymphocytes # (Manual) D-Dimer ABG pH POC ABG pCO2 72.5 H 69.4 H 76.9 H POC ABG pO2 50.4 L 80.6 L 60.2 L ABG pO2 ABG HCO3 ABG O2 Saturation ABG Base Excess ABG Hemoglobin 10.4 L 10.7 L 10 L ABG Oxyhemoglobin 84.3 L 89.7 L ABG Sodium 133.7 L 133.7 L 133.8 L ABG Potassium ABG Chloride 90.0 L 91.0 L 91.0 L ABG Glucose 116 H 96 H 57 L Oxyhemoglobin Carboxyhemoglobin 0.4 L Sodium Potassium Chloride Carbon Dioxide BUN Creatinine Glucose POC Glucose Hemoglobin A1c Lactic Acid Calcium Magnesium Ferritin Total Bilirubin AST ALT Alkaline Phosphatase Lactate Dehydrogenase Total Creatine Kinase C-Reactive Protein Total Protein Albumin Triglycerides Arterial Blood Glucose 116 H 96 H 57 L Arterial Blood Ionized Calcium 4.2 L 4.3 L 4.2 L Ur Specific [place] Urine WBC (Auto) Vancomycin Trough Coronavirus (PCR) 12/10/20 12/10/20 12/10/20 05:09 05:41 11:50 WBC RBC Hgb Hct MCHC RDW Plt Count Lymph % (Auto) [place] % (Auto) Lymph # (Auto) [place] # (Auto) Baso # (Auto) Seg Neutrophils % Seg Neuts % (Manual) Lymphocytes % (Manual) Nucleated RBC % Seg Neutrophils # Seg Neutrophils # Man Lymphocytes # (Manual) D-Dimer ABG pH POC ABG pCO2 POC ABG pO2 ABG pO2 ABG HCO3 ABG O2 Saturation ABG Base Excess ABG Hemoglobin ABG Oxyhemoglobin ABG Sodium ABG Potassium ABG Chloride ABG Glucose Oxyhemoglobin Carboxyhemoglobin Sodium Potassium Chloride Carbon Dioxide BUN Creatinine Glucose POC Glucose 41 L 138 H 106 H Hemoglobin A1c Lactic Acid Calcium Magnesium Ferritin Total Bilirubin AST ALT Alkaline Phosphatase Lactate Dehydrogenase Total Creatine Kinase C-Reactive Protein Total Protein Albumin Triglycerides Arterial Blood Glucose Arterial Blood Ionized Calcium Ur Specific [place] Urine WBC (Auto) Vancomycin Trough Coronavirus (PCR) 12/10/20 12/10/20 12/11/20 17:34 23:25 04:06 WBC RBC Hgb Hct MCHC RDW Plt Count Lymph % (Auto) [place] % (Auto) Lymph # (Auto) [place] # (Auto) Baso # (Auto) Seg Neutrophils % Seg Neuts % (Manual) Lymphocytes % (Manual) Nucleated RBC % Seg Neutrophils # Seg Neutrophils # Man Lymphocytes # (Manual) D-Dimer ABG pH POC ABG pCO2 71.0 H POC ABG pO2 56.8 L ABG pO2 ABG HCO3 ABG O2 Saturation ABG Base Excess ABG Hemoglobin 10.1 L ABG Oxyhemoglobin 88.5 L ABG Sodium 132.3 L ABG Potassium ABG Chloride 91.0 L ABG Glucose 168 H Oxyhemoglobin Carboxyhemoglobin Sodium Potassium Chloride Carbon Dioxide BUN Creatinine Glucose POC Glucose 121 H 167 H Hemoglobin A1c Lactic Acid Calcium Magnesium Ferritin Total Bilirubin AST ALT Alkaline Phosphatase Lactate Dehydrogenase Total Creatine Kinase C-Reactive Protein Total Protein Albumin Triglycerides Arterial Blood Glucose 168 H Arterial Blood Ionized Calcium 4.1 L Ur Specific [place] Urine WBC (Auto) Vancomycin Trough Coronavirus (PCR) 12/11/20 12/11/20 12/11/20 05:21 11:44 15:40 WBC RBC Hgb Hct MCHC RDW Plt Count Lymph % (Auto) [place] % (Auto) Lymph # (Auto) [place] # (Auto) Baso # (Auto) Seg Neutrophils % Seg Neuts % (Manual) Lymphocytes % (Manual) Nucleated RBC % Seg Neutrophils # Seg Neutrophils # Man Lymphocytes # (Manual) D-Dimer ABG pH 7.454 H POC ABG pCO2 58.6 H POC ABG pO2 50.7 L ABG pO2 ABG HCO3 ABG O2 Saturation ABG Base Excess ABG Hemoglobin 10.1 L ABG Oxyhemoglobin 86.2 L ABG Sodium 131.2 L ABG Potassium ABG Chloride 92.0 L ABG Glucose 197 H Oxyhemoglobin Carboxyhemoglobin Sodium Potassium Chloride Carbon Dioxide BUN Creatinine Glucose POC Glucose 149 H 202 H Hemoglobin A1c Lactic Acid Calcium Magnesium Ferritin Total Bilirubin AST ALT Alkaline Phosphatase Lactate Dehydrogenase Total Creatine Kinase C-Reactive Protein Total Protein Albumin Triglycerides Arterial Blood Glucose 197 H Arterial Blood Ionized Calcium 4.2 L Ur Specific [place] Urine WBC (Auto) Vancomycin Trough Coronavirus (PCR) 12/11/20 12/11/20 12/12/20 17:09 23:16 05:09 WBC RBC Hgb Hct MCHC RDW Plt Count Lymph % (Auto) [place] % (Auto) Lymph # (Auto) [place] # (Auto) Baso # (Auto) Seg Neutrophils % Seg Neuts % (Manual) Lymphocytes % (Manual) Nucleated RBC % Seg Neutrophils # Seg Neutrophils # Man Lymphocytes # (Manual) D-Dimer ABG pH POC ABG pCO2 63.1 H POC ABG pO2 62.6 L ABG pO2 ABG HCO3 ABG O2 Saturation ABG Base Excess ABG Hemoglobin 10.3 L ABG Oxyhemoglobin ABG Sodium 130.3 L ABG Potassium 4.6 H ABG Chloride 92.0 L ABG Glucose 215 H Oxyhemoglobin Carboxyhemoglobin Sodium Potassium Chloride Carbon Dioxide BUN Creatinine Glucose POC Glucose 181 H 192 H Hemoglobin A1c Lactic Acid Calcium Magnesium Ferritin Total Bilirubin AST ALT Alkaline Phosphatase Lactate Dehydrogenase Total Creatine Kinase C-Reactive Protein Total Protein Albumin Triglycerides Arterial Blood Glucose 215 H Arterial Blood Ionized Calcium 4.4 L Ur Specific [place] Urine WBC (Auto) Vancomycin Trough Coronavirus (PCR) 12/12/20 12/12/20 12/12/20 05:16 05:47 11:41 WBC RBC Hgb Hct MCHC RDW Plt Count Lymph % (Auto) [place] % (Auto) Lymph # (Auto) [place] # (Auto) Baso # (Auto) Seg Neutrophils % Seg Neuts % (Manual) Lymphocytes % (Manual) Nucleated RBC % Seg Neutrophils # Seg Neutrophils # Man Lymphocytes # (Manual) D-Dimer ABG pH POC ABG pCO2 POC ABG pO2 ABG pO2 ABG HCO3 ABG O2 Saturation ABG Base Excess ABG Hemoglobin ABG Oxyhemoglobin ABG Sodium ABG Potassium ABG Chloride ABG Glucose Oxyhemoglobin Carboxyhemoglobin Sodium Potassium Chloride Carbon Dioxide BUN Creatinine Glucose POC Glucose 208 H 218 H Hemoglobin A1c Lactic Acid Calcium Magnesium Ferritin Total Bilirubin AST ALT Alkaline Phosphatase Lactate Dehydrogenase Total Creatine Kinase C-Reactive Protein Total Protein Albumin Triglycerides 150 H Arterial Blood Glucose Arterial Blood Ionized Calcium Ur Specific [place] Urine WBC (Auto) Vancomycin Trough Coronavirus (PCR) 12/12/20 12/12/20 12/13/20 17:05 23:18 03:36 WBC RBC Hgb Hct MCHC RDW Plt Count Lymph % (Auto) [place] % (Auto) Lymph # (Auto) [place] # (Auto) Baso # (Auto) Seg Neutrophils % Seg Neuts % (Manual) Lymphocytes % (Manual) Nucleated RBC % Seg Neutrophils # Seg Neutrophils # Man Lymphocytes # (Manual) D-Dimer ABG pH POC ABG pCO2 61.5 H POC ABG pO2 77.6 L ABG pO2 ABG HCO3 ABG O2 Saturation ABG Base Excess ABG Hemoglobin 10.2 L ABG Oxyhemoglobin ABG Sodium 127.5 L ABG Potassium ABG Chloride 91.0 L ABG Glucose 232 H Oxyhemoglobin Carboxyhemoglobin Sodium Potassium Chloride Carbon Dioxide BUN Creatinine Glucose POC Glucose 187 H 176 H Hemoglobin A1c Lactic Acid Calcium Magnesium Ferritin Total Bilirubin AST ALT Alkaline Phosphatase Lactate Dehydrogenase Total Creatine Kinase C-Reactive Protein Total Protein Albumin Triglycerides Arterial Blood Glucose 232 H Arterial Blood Ionized Calcium 4.2 L Ur Specific [place] Urine WBC (Auto) Vancomycin Trough Coronavirus (PCR) 12/13/20 12/13/20 12/13/20 05:13 10:00 11:30 WBC RBC 3.50 L Hgb 10.5 L Hct 31.9 L MCHC RDW Plt Count Lymph % (Auto) [place] % (Auto) Lymph # (Auto) [place] # (Auto) Baso # (Auto) Seg Neutrophils % Seg Neuts % (Manual) 96.0 H Lymphocytes % (Manual) Nucleated RBC % Seg Neutrophils # Seg Neutrophils # Man 9.2 H Lymphocytes # (Manual) 0.0 L D-Dimer ABG pH POC ABG pCO2 POC ABG pO2 ABG pO2 ABG HCO3 ABG O2 Saturation ABG Base Excess ABG Hemoglobin ABG Oxyhemoglobin ABG Sodium ABG Potassium ABG Chloride ABG Glucose Oxyhemoglobin Carboxyhemoglobin Sodium Potassium Chloride Carbon Dioxide BUN Creatinine Glucose POC Glucose 204 H Hemoglobin A1c Lactic Acid Calcium Magnesium Ferritin Total Bilirubin AST ALT Alkaline Phosphatase Lactate Dehydrogenase Total Creatine Kinase C-Reactive Protein Total Protein Albumin Triglycerides Arterial Blood Glucose Arterial Blood Ionized Calcium Ur Specific [place] Urine WBC (Auto) Vancomycin Trough Coronavirus (PCR) Positive A 12/13/20 12/13/20 12/13/20 11:30 12:01 18:04 WBC RBC Hgb Hct MCHC RDW Plt Count Lymph % (Auto) [place] % (Auto) Lymph # (Auto) [place] # (Auto) Baso # (Auto) Seg Neutrophils % Seg Neuts % (Manual) Lymphocytes % (Manual) Nucleated RBC % Seg Neutrophils # Seg Neutrophils # Man Lymphocytes # (Manual) D-Dimer ABG pH POC ABG pCO2 POC ABG pO2 ABG pO2 ABG HCO3 ABG O2 Saturation ABG Base Excess ABG Hemoglobin ABG Oxyhemoglobin ABG Sodium ABG Potassium ABG Chloride ABG Glucose Oxyhemoglobin Carboxyhemoglobin Sodium 132 L Potassium Chloride 90.1 L Carbon Dioxide 41 H* D BUN Creatinine 0.2 L Glucose 249 H POC Glucose 224 H 172 H Hemoglobin A1c Lactic Acid Calcium 7.4 L Magnesium Ferritin Total Bilirubin AST ALT 61 H Alkaline Phosphatase Lactate Dehydrogenase Total Creatine Kinase C-Reactive Protein Total Protein 5.7 L Albumin 2.3 L Triglycerides Arterial Blood Glucose Arterial Blood Ionized Calcium Ur Specific [place] Urine WBC (Auto) Vancomycin Trough Coronavirus (PCR) 12/13/20 12/14/20 12/14/20 23:37 04:05 04:35 WBC RBC 3.37 L Hgb 10.1 L Hct 30.7 L MCHC RDW 15.4 H Plt Count Lymph % (Auto) [place] % (Auto) Lymph # (Auto) [place] # (Auto) Baso # (Auto) Seg Neutrophils % Seg Neuts % (Manual) 93.0 H Lymphocytes % (Manual) 3.0 L Nucleated RBC % Seg Neutrophils # Seg Neutrophils # Man 7.8 H Lymphocytes # (Manual) 0.3 L D-Dimer ABG pH POC ABG pCO2 72.2 H POC ABG pO2 61.5 L ABG pO2 ABG HCO3 ABG O2 Saturation ABG Base Excess ABG Hemoglobin ABG Oxyhemoglobin 89.9 L ABG Sodium 131.4 L ABG Potassium ABG Chloride 91.0 L ABG Glucose 205 H Oxyhemoglobin Carboxyhemoglobin Sodium Potassium Chloride Carbon Dioxide BUN Creatinine Glucose POC Glucose 200 H Hemoglobin A1c Lactic Acid Calcium Magnesium Ferritin Total Bilirubin AST ALT Alkaline Phosphatase Lactate Dehydrogenase Total Creatine Kinase C-Reactive Protein Total Protein Albumin Triglycerides Arterial Blood Glucose 205 H Arterial Blood Ionized Calcium 4.3 L Ur Specific [place] Urine WBC (Auto) Vancomycin Trough Coronavirus (PCR) 12/14/20 12/14/20 12/14/20 04:35 05:12 11:31 WBC RBC Hgb Hct MCHC RDW Plt Count Lymph % (Auto) [place] % (Auto) Lymph # (Auto) [place] # (Auto) Baso # (Auto) Seg Neutrophils % Seg Neuts % (Manual) Lymphocytes % (Manual) Nucleated RBC % Seg Neutrophils # Seg Neutrophils # Man Lymphocytes # (Manual) D-Dimer ABG pH POC ABG pCO2 POC ABG pO2 ABG pO2 ABG HCO3 ABG O2 Saturation ABG Base Excess ABG Hemoglobin ABG Oxyhemoglobin ABG Sodium ABG Potassium ABG Chloride ABG Glucose Oxyhemoglobin Carboxyhemoglobin Sodium 135 L Potassium Chloride 92.5 L Carbon Dioxide 38 H BUN Creatinine 0.2 L Glucose 184 H POC Glucose 176 H 212 H Hemoglobin A1c Lactic Acid Calcium 7.7 L Magnesium Ferritin Total Bilirubin AST ALT Alkaline Phosphatase Lactate Dehydrogenase Total Creatine Kinase C-Reactive Protein Total Protein Albumin Triglycerides Arterial Blood Glucose Arterial Blood Ionized Calcium Ur Specific [place] Urine WBC (Auto) Vancomycin Trough Coronavirus (PCR) 12/14/20 12/14/20 12/15/20 17:30 23:30 03:19 WBC RBC Hgb Hct MCHC RDW Plt Count Lymph % (Auto) [place] % (Auto) Lymph # (Auto) [place] # (Auto) Baso # (Auto) Seg Neutrophils % Seg Neuts % (Manual) Lymphocytes % (Manual) Nucleated RBC % Seg Neutrophils # Seg Neutrophils # Man Lymphocytes # (Manual) D-Dimer ABG pH POC ABG pCO2 62.0 H POC ABG pO2 66.0 L ABG pO2 ABG HCO3 ABG O2 Saturation ABG Base Excess ABG Hemoglobin 10.3 L ABG Oxyhemoglobin ABG Sodium 130.5 L ABG Potassium ABG Chloride 91.0 L ABG Glucose 166 H Oxyhemoglobin Carboxyhemoglobin Sodium Potassium Chloride Carbon Dioxide BUN Creatinine Glucose POC Glucose 222 H 176 H Hemoglobin A1c Lactic Acid Calcium Magnesium Ferritin Total Bilirubin AST ALT Alkaline Phosphatase Lactate Dehydrogenase Total Creatine Kinase C-Reactive Protein Total Protein Albumin Triglycerides Arterial Blood Glucose 166 H Arterial Blood Ionized Calcium 4.4 L Ur Specific [place] Urine WBC (Auto) Vancomycin Trough Coronavirus (PCR) 12/15/20 12/15/20 12/15/20 05:24 11:39 17:30 WBC RBC Hgb Hct MCHC RDW Plt Count Lymph % (Auto) [place] % (Auto) Lymph # (Auto) [place] # (Auto) Baso # (Auto) Seg Neutrophils % Seg Neuts % (Manual) Lymphocytes % (Manual) Nucleated RBC % Seg Neutrophils # Seg Neutrophils # Man Lymphocytes # (Manual) D-Dimer ABG pH POC ABG pCO2 POC ABG pO2 ABG pO2 ABG HCO3 ABG O2 Saturation ABG Base Excess ABG Hemoglobin ABG Oxyhemoglobin ABG Sodium ABG Potassium ABG Chloride ABG Glucose Oxyhemoglobin Carboxyhemoglobin Sodium Potassium Chloride Carbon Dioxide BUN Creatinine Glucose POC Glucose 160 H 140 H 246 H Hemoglobin A1c Lactic Acid Calcium Magnesium Ferritin Total Bilirubin AST ALT Alkaline Phosphatase Lactate Dehydrogenase Total Creatine Kinase C-Reactive Protein Total Protein Albumin Triglycerides Arterial Blood Glucose Arterial Blood Ionized Calcium Ur Specific [place] Urine WBC (Auto) Vancomycin Trough Coronavirus (PCR) 12/15/20 12/16/20 12/16/20 23:42 03:54 04:46 WBC RBC 3.48 L Hgb 10.6 L Hct 31.5 L MCHC RDW 15.8 H Plt Count Lymph % (Auto) [place] % (Auto) Lymph # (Auto) [place] # (Auto) Baso # (Auto) Seg Neutrophils % Seg Neuts % (Manual) Lymphocytes % (Manual) Nucleated RBC % Seg Neutrophils # Seg Neutrophils # Man Lymphocytes # (Manual) D-Dimer ABG pH POC ABG pCO2 63.6 H POC ABG pO2 55.0 L ABG pO2 ABG HCO3 ABG O2 Saturation ABG Base Excess ABG Hemoglobin 11.1 L ABG Oxyhemoglobin 87.3 L ABG Sodium 130.7 L ABG Potassium ABG Chloride 89.0 L ABG Glucose 211 H Oxyhemoglobin Carboxyhemoglobin Sodium Potassium Chloride Carbon Dioxide BUN Creatinine Glucose POC Glucose 139 H Hemoglobin A1c Lactic Acid Calcium Magnesium Ferritin Total Bilirubin AST ALT Alkaline Phosphatase Lactate Dehydrogenase Total Creatine Kinase C-Reactive Protein Total Protein Albumin Triglycerides Arterial Blood Glucose 211 H Arterial Blood Ionized Calcium 4.3 L Ur Specific [place] Urine WBC (Auto) Vancomycin Trough Coronavirus (PCR) 12/16/20 12/16/20 12/16/20 04:46 05:34 11:40 WBC RBC Hgb Hct MCHC RDW Plt Count Lymph % (Auto) [place] % (Auto) Lymph # (Auto) [place] # (Auto) Baso # (Auto) Seg Neutrophils % Seg Neuts % (Manual) Lymphocytes % (Manual) Nucleated RBC % Seg Neutrophils # Seg Neutrophils # Man Lymphocytes # (Manual) D-Dimer ABG pH POC ABG pCO2 POC ABG pO2 ABG pO2 ABG HCO3 ABG O2 Saturation ABG Base Excess ABG Hemoglobin ABG Oxyhemoglobin ABG Sodium ABG Potassium ABG Chloride ABG Glucose Oxyhemoglobin Carboxyhemoglobin Sodium 134 L Potassium Chloride 89.7 L Carbon Dioxide 38 H BUN Creatinine < 0.2 L Glucose 203 H POC Glucose 155 H 239 H Hemoglobin A1c Lactic Acid Calcium 7.5 L Magnesium Ferritin Total Bilirubin AST ALT Alkaline Phosphatase Lactate Dehydrogenase Total Creatine Kinase C-Reactive Protein Total Protein Albumin Triglycerides Arterial Blood Glucose Arterial Blood Ionized Calcium Ur Specific [place] Urine WBC (Auto) Vancomycin Trough Coronavirus (PCR) 12/16/20 12/16/20 12/17/20 17:42 23:45 03:59 WBC RBC Hgb Hct MCHC RDW Plt Count Lymph % (Auto) [place] % (Auto) Lymph # (Auto) [place] # (Auto) Baso # (Auto) Seg Neutrophils % Seg Neuts % (Manual) Lymphocytes % (Manual) Nucleated RBC % Seg Neutrophils # Seg Neutrophils # Man Lymphocytes # (Manual) D-Dimer ABG pH POC ABG pCO2 71.9 H POC ABG pO2 57.5 L ABG pO2 ABG HCO3 ABG O2 Saturation ABG Base Excess ABG Hemoglobin 10.8 L ABG Oxyhemoglobin 87.7 L ABG Sodium 131.5 L ABG Potassium ABG Chloride 90.0 L ABG Glucose 199 H Oxyhemoglobin Carboxyhemoglobin Sodium Potassium Chloride Carbon Dioxide BUN Creatinine Glucose POC Glucose 228 H 187 H Hemoglobin A1c Lactic Acid Calcium Magnesium Ferritin Total Bilirubin AST ALT Alkaline Phosphatase Lactate Dehydrogenase Total Creatine Kinase C-Reactive Protein Total Protein Albumin Triglycerides Arterial Blood Glucose 199 H Arterial Blood Ionized Calcium 4.4 L Ur Specific [place] Urine WBC (Auto) Vancomycin Trough Coronavirus (PCR) 12/17/20 12/17/20 12/17/20 05:35 11:55 12:40 WBC RBC Hgb Hct MCHC RDW Plt Count Lymph % (Auto) [place] % (Auto) Lymph # (Auto) [place] # (Auto) Baso # (Auto) Seg Neutrophils % Seg Neuts % (Manual) Lymphocytes % (Manual) Nucleated RBC % Seg Neutrophils # Seg Neutrophils # Man Lymphocytes # (Manual) D-Dimer ABG pH POC ABG pCO2 POC ABG pO2 ABG pO2 ABG HCO3 ABG O2 Saturation ABG Base Excess ABG Hemoglobin ABG Oxyhemoglobin ABG Sodium ABG Potassium ABG Chloride ABG Glucose Oxyhemoglobin Carboxyhemoglobin Sodium Potassium Chloride 95.2 L Carbon Dioxide 41 H* BUN Creatinine 0.2 L Glucose 138 H POC Glucose 159 H 181 H Hemoglobin A1c Lactic Acid Calcium 7.3 L Magnesium Ferritin Total Bilirubin AST ALT Alkaline Phosphatase Lactate Dehydrogenase Total Creatine Kinase C-Reactive Protein Total Protein Albumin Triglycerides Arterial Blood Glucose Arterial Blood Ionized Calcium Ur Specific [place] Urine WBC (Auto) Vancomycin Trough Coronavirus (PCR) 12/17/20 12/17/20 12/17/20 17:25 17:25 17:51 WBC RBC Hgb Hct MCHC RDW Plt Count Lymph % (Auto) [place] % (Auto) Lymph # (Auto) [place] # (Auto) Baso # (Auto) Seg Neutrophils % Seg Neuts % (Manual) Lymphocytes % (Manual) Nucleated RBC % Seg Neutrophils # Seg Neutrophils # Man Lymphocytes # (Manual) D-Dimer ABG pH POC ABG pCO2 POC ABG pO2 ABG pO2 ABG HCO3 ABG O2 Saturation ABG Base Excess ABG Hemoglobin ABG Oxyhemoglobin ABG Sodium ABG Potassium ABG Chloride ABG Glucose Oxyhemoglobin Carboxyhemoglobin Sodium 134 L Potassium Chloride 89.6 L Carbon Dioxide 44 H* BUN Creatinine 0.2 L Glucose 280 H POC Glucose 260 H Hemoglobin A1c Lactic Acid Calcium 8.0 L Magnesium 1.60 L Ferritin Total Bilirubin AST ALT Alkaline Phosphatase Lactate Dehydrogenase Total Creatine Kinase 47 L C-Reactive Protein Total Protein 6.2 L Albumin 2.1 L Triglycerides Arterial Blood Glucose Arterial Blood Ionized Calcium Ur Specific [place] Urine WBC (Auto) Vancomycin Trough Coronavirus (PCR) 12/18/20 12/18/20 12/18/20 00:12 03:56 04:32 WBC RBC 2.88 L Hgb 8.6 L Hct 26.0 L MCHC RDW 15.6 H Plt Count Lymph % (Auto) [place] % (Auto) Lymph # (Auto) [place] # (Auto) Baso # (Auto) Seg Neutrophils % Seg Neuts % (Manual) Lymphocytes % (Manual) Nucleated RBC % Seg Neutrophils # Seg Neutrophils # Man Lymphocytes # (Manual) D-Dimer ABG pH POC ABG pCO2 78.0 H POC ABG pO2 52.3 L ABG pO2 ABG HCO3 ABG O2 Saturation ABG Base Excess ABG Hemoglobin 11.7 L ABG Oxyhemoglobin 84.9 L ABG Sodium 131.6 L ABG Potassium ABG Chloride 89.0 L ABG Glucose 191 H Oxyhemoglobin Carboxyhemoglobin Sodium Potassium Chloride Carbon Dioxide BUN Creatinine Glucose POC Glucose 197 H Hemoglobin A1c Lactic Acid Calcium Magnesium Ferritin Total Bilirubin AST ALT Alkaline Phosphatase Lactate Dehydrogenase Total Creatine Kinase C-Reactive Protein Total Protein Albumin Triglycerides Arterial Blood Glucose 191 H Arterial Blood Ionized Calcium 4.4 L Ur Specific [place] Urine WBC (Auto) Vancomycin Trough Coronavirus (PCR) 12/18/20 12/18/20 12/18/20 04:32 05:19 08:27 WBC RBC Hgb Hct MCHC RDW Plt Count Lymph % (Auto) [place] % (Auto) Lymph # (Auto) [place] # (Auto) Baso # (Auto) Seg Neutrophils % Seg Neuts % (Manual) Lymphocytes % (Manual) Nucleated RBC % Seg Neutrophils # Seg Neutrophils # Man Lymphocytes # (Manual) D-Dimer ABG pH POC ABG pCO2 POC ABG pO2 ABG pO2 ABG HCO3 ABG O2 Saturation ABG Base Excess ABG Hemoglobin ABG Oxyhemoglobin ABG Sodium ABG Potassium ABG Chloride ABG Glucose Oxyhemoglobin Carboxyhemoglobin Sodium 134 L 131 L Potassium Chloride 89.5 L 89.0 L Carbon Dioxide 43 H* 41 H* BUN Creatinine < 0.2 L < 0.2 L Glucose 182 H 176 H POC Glucose 165 H Hemoglobin A1c Lactic Acid Calcium 8.1 L 7.5 L Magnesium Ferritin Total Bilirubin AST ALT Alkaline Phosphatase Lactate Dehydrogenase Total Creatine Kinase C-Reactive Protein Total Protein Albumin Triglycerides Arterial Blood Glucose Arterial Blood Ionized Calcium Ur Specific [place] Urine WBC (Auto) Vancomycin Trough Coronavirus (PCR) 12/18/20 12/18/20 12/18/20 11:37 17:26 23:19 WBC RBC Hgb Hct MCHC RDW Plt Count Lymph % (Auto) [place] % (Auto) Lymph # (Auto) [place] # (Auto) Baso # (Auto) Seg Neutrophils % Seg Neuts % (Manual) Lymphocytes % (Manual) Nucleated RBC % Seg Neutrophils # Seg Neutrophils # Man Lymphocytes # (Manual) D-Dimer ABG pH POC ABG pCO2 POC ABG pO2 ABG pO2 ABG HCO3 ABG O2 Saturation ABG Base Excess ABG Hemoglobin ABG Oxyhemoglobin ABG Sodium ABG Potassium ABG Chloride ABG Glucose Oxyhemoglobin Carboxyhemoglobin Sodium Potassium Chloride Carbon Dioxide BUN Creatinine Glucose POC Glucose 174 H 243 H 212 H Hemoglobin A1c Lactic Acid Calcium Magnesium Ferritin Total Bilirubin AST ALT Alkaline Phosphatase Lactate Dehydrogenase Total Creatine Kinase C-Reactive Protein Total Protein Albumin Triglycerides Arterial Blood Glucose Arterial Blood Ionized Calcium Ur Specific [place] Urine WBC (Auto) Vancomycin Trough Coronavirus (PCR) 12/19/20 12/19/20 12/19/20 03:41 05:26 11:56 WBC RBC Hgb Hct MCHC RDW Plt Count Lymph % (Auto) [place] % (Auto) Lymph # (Auto) [place] # (Auto) Baso # (Auto) Seg Neutrophils % Seg Neuts % (Manual) Lymphocytes % (Manual) Nucleated RBC % Seg Neutrophils # Seg Neutrophils # Man Lymphocytes # (Manual) D-Dimer ABG pH POC ABG pCO2 75.4 H POC ABG pO2 50.7 L ABG pO2 ABG HCO3 ABG O2 Saturation ABG Base Excess ABG Hemoglobin 10.4 L ABG Oxyhemoglobin 84.2 L ABG Sodium 131.1 L ABG Potassium ABG Chloride 89.0 L ABG Glucose 194 H Oxyhemoglobin Carboxyhemoglobin 1.6 H Sodium Potassium Chloride Carbon Dioxide BUN Creatinine Glucose POC Glucose 166 H 173 H Hemoglobin A1c Lactic Acid Calcium Magnesium Ferritin Total Bilirubin AST ALT Alkaline Phosphatase Lactate Dehydrogenase Total Creatine Kinase C-Reactive Protein Total Protein Albumin Triglycerides Arterial Blood Glucose 194 H Arterial Blood Ionized Calcium 4.3 L Ur Specific [place] Urine WBC (Auto) Vancomycin Trough Coronavirus (PCR) 12/19/20 12/19/20 12/19/20 18:17 23:39 Unknown WBC RBC Hgb Hct MCHC RDW Plt Count Lymph % (Auto) [place] % (Auto) Lymph # (Auto) [place] # (Auto) Baso # (Auto) Seg Neutrophils % Seg Neuts % (Manual) Lymphocytes % (Manual) Nucleated RBC % Seg Neutrophils # Seg Neutrophils # Man Lymphocytes # (Manual) D-Dimer ABG pH POC ABG pCO2 POC ABG pO2 ABG pO2 ABG HCO3 ABG O2 Saturation ABG Base Excess ABG Hemoglobin ABG Oxyhemoglobin ABG Sodium ABG Potassium ABG Chloride ABG Glucose Oxyhemoglobin Carboxyhemoglobin Sodium 133 L Potassium Chloride 89.9 L Carbon Dioxide 39 H BUN Creatinine 0.2 L Glucose 197 H POC Glucose 212 H 133 H Hemoglobin A1c Lactic Acid Calcium 7.6 L Magnesium Ferritin Total Bilirubin AST ALT Alkaline Phosphatase Lactate Dehydrogenase Total Creatine Kinase C-Reactive Protein Total Protein Albumin Triglycerides Arterial Blood Glucose Arterial Blood Ionized Calcium Ur Specific [place] Urine WBC (Auto) Vancomycin Trough Coronavirus (PCR) 12/20/20 12/20/20 12/20/20 03:26 04:00 04:00 WBC RBC 3.21 L Hgb 9.6 L Hct 29.2 L MCHC RDW 15.8 H Plt Count Lymph % (Auto) [place] % (Auto) Lymph # (Auto) [place] # (Auto) Baso # (Auto) Seg Neutrophils % Seg Neuts % (Manual) Lymphocytes % (Manual) Nucleated RBC % Seg Neutrophils # Seg Neutrophils # Man Lymphocytes # (Manual) D-Dimer ABG pH POC ABG pCO2 74.2 H POC ABG pO2 51.3 L ABG pO2 ABG HCO3 ABG O2 Saturation ABG Base Excess ABG Hemoglobin 10.0 L ABG Oxyhemoglobin ABG Sodium 128.9 L ABG Potassium ABG Chloride 87.0 L ABG Glucose 173 H Oxyhemoglobin Carboxyhemoglobin Sodium 132 L Potassium Chloride 86.0 L Carbon Dioxide 43 H* BUN Creatinine 0.2 L Glucose 193 H POC Glucose Hemoglobin A1c Lactic Acid Calcium 7.6 L Magnesium Ferritin Total Bilirubin AST ALT Alkaline Phosphatase Lactate Dehydrogenase Total Creatine Kinase C-Reactive Protein Total Protein Albumin Triglycerides Arterial Blood Glucose 173 H Arterial Blood Ionized Calcium 4.1 L Ur Specific [place] Urine WBC (Auto) Vancomycin Trough Coronavirus (PCR) 12/20/20 12/20/20 12/20/20 05:05 11:47 18:18 WBC RBC Hgb Hct MCHC RDW Plt Count Lymph % (Auto) [place] % (Auto) Lymph # (Auto) [place] # (Auto) Baso # (Auto) Seg Neutrophils % Seg Neuts % (Manual) Lymphocytes % (Manual) Nucleated RBC % Seg Neutrophils # Seg Neutrophils # Man Lymphocytes # (Manual) D-Dimer ABG pH POC ABG pCO2 POC ABG pO2 ABG pO2 ABG HCO3 ABG O2 Saturation ABG Base Excess ABG Hemoglobin ABG Oxyhemoglobin ABG Sodium ABG Potassium ABG Chloride ABG Glucose Oxyhemoglobin Carboxyhemoglobin Sodium Potassium Chloride Carbon Dioxide BUN Creatinine Glucose POC Glucose 171 H 238 H 205 H Hemoglobin A1c Lactic Acid Calcium Magnesium Ferritin Total Bilirubin AST ALT Alkaline Phosphatase Lactate Dehydrogenase Total Creatine Kinase C-Reactive Protein Total Protein Albumin Triglycerides Arterial Blood Glucose Arterial Blood Ionized Calcium Ur Specific [place] Urine WBC (Auto) Vancomycin Trough Coronavirus (PCR) 12/20/20 12/21/20 12/21/20 23:41 03:30 05:37 WBC RBC Hgb Hct MCHC RDW Plt Count Lymph % (Auto) [place] % (Auto) Lymph # (Auto) [place] # (Auto) Baso # (Auto) Seg Neutrophils % Seg Neuts % (Manual) Lymphocytes % (Manual) Nucleated RBC % Seg Neutrophils # Seg Neutrophils # Man Lymphocytes # (Manual) D-Dimer ABG pH POC ABG pCO2 73.4 H POC ABG pO2 63.0 L ABG pO2 ABG HCO3 ABG O2 Saturation ABG Base Excess ABG Hemoglobin 10.1 L ABG Oxyhemoglobin ABG Sodium 130.5 L ABG Potassium ABG Chloride 89.0 L ABG Glucose 171 H Oxyhemoglobin Carboxyhemoglobin Sodium Potassium Chloride Carbon Dioxide BUN Creatinine Glucose POC Glucose 167 H 152 H Hemoglobin A1c Lactic Acid Calcium Magnesium Ferritin Total Bilirubin AST ALT Alkaline Phosphatase Lactate Dehydrogenase Total Creatine Kinase C-Reactive Protein Total Protein Albumin Triglycerides Arterial Blood Glucose 171 H Arterial Blood Ionized Calcium 4.2 L Ur Specific [place] Urine WBC (Auto) Vancomycin Trough Coronavirus (PCR) 12/21/20 12/21/20 12/21/20 09:57 12:54 18:00 WBC RBC Hgb Hct MCHC RDW Plt Count Lymph % (Auto) [place] % (Auto) Lymph # (Auto) [place] # (Auto) Baso # (Auto) Seg Neutrophils % Seg Neuts % (Manual) Lymphocytes % (Manual) Nucleated RBC % Seg Neutrophils # Seg Neutrophils # Man Lymphocytes # (Manual) D-Dimer ABG pH POC ABG pCO2 POC ABG pO2 ABG pO2 ABG HCO3 ABG O2 Saturation ABG Base Excess ABG Hemoglobin ABG Oxyhemoglobin ABG Sodium ABG Potassium ABG Chloride ABG Glucose Oxyhemoglobin Carboxyhemoglobin Sodium 132 L Potassium Chloride 87.7 L Carbon Dioxide 42 H* BUN Creatinine 0.2 L Glucose 207 H POC Glucose 199 H 217 H Hemoglobin A1c Lactic Acid Calcium 7.7 L Magnesium Ferritin Total Bilirubin AST ALT Alkaline Phosphatase Lactate Dehydrogenase Total Creatine Kinase C-Reactive Protein Total Protein Albumin Triglycerides Arterial Blood Glucose Arterial Blood Ionized Calcium Ur Specific [place] Urine WBC (Auto) Vancomycin Trough Coronavirus (PCR) 12/21/20 12/22/20 12/22/20 Unknown 00:02 04:08 WBC RBC Hgb Hct MCHC RDW Plt Count Lymph % (Auto) [place] % (Auto) Lymph # (Auto) [place] # (Auto) Baso # (Auto) Seg Neutrophils % Seg Neuts % (Manual) Lymphocytes % (Manual) Nucleated RBC % Seg Neutrophils # Seg Neutrophils # Man Lymphocytes # (Manual) D-Dimer ABG pH POC ABG pCO2 67.6 H POC ABG pO2 57.3 L ABG pO2 ABG HCO3 ABG O2 Saturation ABG Base Excess ABG Hemoglobin ABG Oxyhemoglobin ABG Sodium 130.9 L ABG Potassium ABG Chloride 92.0 L ABG Glucose 163 H Oxyhemoglobin Carboxyhemoglobin Sodium Potassium Chloride Carbon Dioxide BUN Creatinine Glucose POC Glucose 172 H Hemoglobin A1c Lactic Acid Calcium Magnesium Ferritin Total Bilirubin AST ALT Alkaline Phosphatase Lactate Dehydrogenase Total Creatine Kinase C-Reactive Protein Total Protein Albumin Triglycerides Arterial Blood Glucose 163 H Arterial Blood Ionized Calcium 4.2 L Ur Specific [place] Urine WBC (Auto) 172.0 H Vancomycin Trough Coronavirus (PCR) 12/22/20 12/22/20 12/22/20 05:19 11:33 17:20 WBC RBC Hgb Hct MCHC RDW Plt Count Lymph % (Auto) [place] % (Auto) Lymph # (Auto) [place] # (Auto) Baso # (Auto) Seg Neutrophils % Seg Neuts % (Manual) Lymphocytes % (Manual) Nucleated RBC % Seg Neutrophils # Seg Neutrophils # Man Lymphocytes # (Manual) D-Dimer ABG pH POC ABG pCO2 POC ABG pO2 ABG pO2 ABG HCO3 ABG O2 Saturation ABG Base Excess ABG Hemoglobin ABG Oxyhemoglobin ABG Sodium ABG Potassium ABG Chloride ABG Glucose Oxyhemoglobin Carboxyhemoglobin Sodium Potassium Chloride Carbon Dioxide BUN Creatinine Glucose POC Glucose 151 H 181 H 166 H Hemoglobin A1c Lactic Acid Calcium Magnesium Ferritin Total Bilirubin AST ALT Alkaline Phosphatase Lactate Dehydrogenase Total Creatine Kinase C-Reactive Protein Total Protein Albumin Triglycerides Arterial Blood Glucose Arterial Blood Ionized Calcium Ur Specific [place] Urine WBC (Auto) Vancomycin Trough Coronavirus (PCR) 12/22/20 12/23/20 12/23/20 23:25 05:19 05:32 WBC RBC Hgb Hct MCHC RDW Plt Count Lymph % (Auto) [place] % (Auto) Lymph # (Auto) [place] # (Auto) Baso # (Auto) Seg Neutrophils % Seg Neuts % (Manual) Lymphocytes % (Manual) Nucleated RBC % Seg Neutrophils # Seg Neutrophils # Man Lymphocytes # (Manual) D-Dimer ABG pH POC ABG pCO2 67.7 H POC ABG pO2 53.7 L ABG pO2 ABG HCO3 ABG O2 Saturation ABG Base Excess ABG Hemoglobin 9.6 L ABG Oxyhemoglobin ABG Sodium 130.2 L ABG Potassium ABG Chloride 88.0 L ABG Glucose 195 H Oxyhemoglobin Carboxyhemoglobin Sodium Potassium Chloride Carbon Dioxide BUN Creatinine Glucose POC Glucose 121 H 167 H Hemoglobin A1c Lactic Acid Calcium Magnesium Ferritin Total Bilirubin AST ALT Alkaline Phosphatase Lactate Dehydrogenase Total Creatine Kinase C-Reactive Protein Total Protein Albumin Triglycerides Arterial Blood Glucose 195 H Arterial Blood Ionized Calcium 4.1 L Ur Specific [place] Urine WBC (Auto) Vancomycin Trough Coronavirus (PCR) 12/23/20 12/23/20 12/23/20 06:07 11:21 18:10 WBC RBC Hgb Hct MCHC RDW Plt Count Lymph % (Auto) [place] % (Auto) Lymph # (Auto) [place] # (Auto) Baso # (Auto) Seg Neutrophils % Seg Neuts % (Manual) Lymphocytes % (Manual) Nucleated RBC % Seg Neutrophils # Seg Neutrophils # Man Lymphocytes # (Manual) D-Dimer ABG pH POC ABG pCO2 POC ABG pO2 ABG pO2 ABG HCO3 ABG O2 Saturation ABG Base Excess ABG Hemoglobin ABG Oxyhemoglobin ABG Sodium ABG Potassium ABG Chloride ABG Glucose Oxyhemoglobin Carboxyhemoglobin Sodium 135 L Potassium Chloride 89.3 L Carbon Dioxide 43 H* BUN Creatinine 0.2 L Glucose 193 H POC Glucose 155 H 178 H Hemoglobin A1c Lactic Acid Calcium 7.4 L Magnesium Ferritin Total Bilirubin AST ALT Alkaline Phosphatase Lactate Dehydrogenase Total Creatine Kinase C-Reactive Protein Total Protein Albumin Triglycerides Arterial Blood Glucose Arterial Blood Ionized Calcium Ur Specific [place] Urine WBC (Auto) Vancomycin Trough Coronavirus (PCR) 12/23/20 12/24/20 12/24/20 23:21 04:49 05:00 WBC RBC Hgb Hct MCHC RDW Plt Count Lymph % (Auto) [place] % (Auto) Lymph # (Auto) [place] # (Auto) Baso # (Auto) Seg Neutrophils % Seg Neuts % (Manual) Lymphocytes % (Manual) Nucleated RBC % Seg Neutrophils # Seg Neutrophils # Man Lymphocytes # (Manual) D-Dimer ABG pH POC ABG pCO2 75.5 H POC ABG pO2 50.5 L ABG pO2 ABG HCO3 ABG O2 Saturation ABG Base Excess ABG Hemoglobin 8.8 L ABG Oxyhemoglobin 86.3 L ABG Sodium 131.6 L ABG Potassium ABG Chloride 88.0 L ABG Glucose 186 H Oxyhemoglobin Carboxyhemoglobin 2.1 H Sodium Potassium Chloride Carbon Dioxide BUN Creatinine Glucose POC Glucose 126 H Hemoglobin A1c Lactic Acid Calcium Magnesium Ferritin Total Bilirubin AST ALT Alkaline Phosphatase Lactate Dehydrogenase Total Creatine Kinase C-Reactive Protein Total Protein Albumin Triglycerides 486 H Arterial Blood Glucose 186 H Arterial Blood Ionized Calcium 4.0 L Ur Specific [place] Urine WBC (Auto) Vancomycin Trough Coronavirus (PCR) 12/24/20 12/24/20 12/24/20 05:19 11:57 16:44 WBC RBC Hgb Hct MCHC RDW Plt Count Lymph % (Auto) [place] % (Auto) Lymph # (Auto) [place] # (Auto) Baso # (Auto) Seg Neutrophils % Seg Neuts % (Manual) Lymphocytes % (Manual) Nucleated RBC % Seg Neutrophils # Seg Neutrophils # Man Lymphocytes # (Manual) D-Dimer ABG pH POC ABG pCO2 POC ABG pO2 ABG pO2 ABG HCO3 ABG O2 Saturation ABG Base Excess ABG Hemoglobin ABG Oxyhemoglobin ABG Sodium ABG Potassium ABG Chloride ABG Glucose Oxyhemoglobin Carboxyhemoglobin Sodium Potassium Chloride Carbon Dioxide BUN Creatinine Glucose POC Glucose 162 H 163 H 191 H Hemoglobin A1c Lactic Acid Calcium Magnesium Ferritin Total Bilirubin AST ALT Alkaline Phosphatase Lactate Dehydrogenase Total Creatine Kinase C-Reactive Protein Total Protein Albumin Triglycerides Arterial Blood Glucose Arterial Blood Ionized Calcium Ur Specific [place] Urine WBC (Auto) Vancomycin Trough Coronavirus (PCR) 12/24/20 12/24/20 12/24/20 17:28 18:57 20:48 WBC 19.1 H RBC 2.91 L Hgb 8.3 L Hct 26.0 L MCHC RDW 16.0 H Plt Count Lymph % (Auto) [place] % (Auto) Lymph # (Auto) [place] # (Auto) Baso # (Auto) Seg Neutrophils % Seg Neuts % (Manual) 92.0 H Lymphocytes % (Manual) 5.0 L Nucleated RBC % Seg Neutrophils # Seg Neutrophils # Man 17.6 H Lymphocytes # (Manual) 1.0 L D-Dimer ABG pH 7.250 L POC ABG pCO2 102.6 H 82.1 H POC ABG pO2 42.4 L 38.6 L ABG pO2 ABG HCO3 ABG O2 Saturation ABG Base Excess ABG Hemoglobin 9.0 L 9.3 L ABG Oxyhemoglobin 69.9 L 70.8 L ABG Sodium 131.1 L 130.7 L ABG Potassium ABG Chloride 89.0 L 89.0 L ABG Glucose 211 H 226 H Oxyhemoglobin Carboxyhemoglobin 1.7 H 1.8 H Sodium Potassium Chloride Carbon Dioxide BUN Creatinine Glucose POC Glucose Hemoglobin A1c Lactic Acid Calcium Magnesium Ferritin Total Bilirubin AST ALT Alkaline Phosphatase Lactate Dehydrogenase Total Creatine Kinase C-Reactive Protein Total Protein Albumin Triglycerides Arterial Blood Glucose 211 H 226 H Arterial Blood Ionized Calcium 4.0 L 4.1 L Ur Specific [place] Urine WBC (Auto) Vancomycin Trough Coronavirus (PCR) 12/24/20 12/25/20 12/25/20 23:31 04:04 06:31 WBC RBC Hgb Hct MCHC RDW Plt Count Lymph % (Auto) [place] % (Auto) Lymph # (Auto) [place] # (Auto) Baso # (Auto) Seg Neutrophils % Seg Neuts % (Manual) Lymphocytes % (Manual) Nucleated RBC % Seg Neutrophils # Seg Neutrophils # Man Lymphocytes # (Manual) D-Dimer ABG pH POC ABG pCO2 75.6 H POC ABG pO2 43.3 L ABG pO2 ABG HCO3 ABG O2 Saturation ABG Base Excess ABG Hemoglobin 10.6 L ABG Oxyhemoglobin 77.6 L ABG Sodium 131.4 L ABG Potassium ABG Chloride 90.0 L ABG Glucose 185 H Oxyhemoglobin Carboxyhemoglobin 2.4 H Sodium Potassium Chloride Carbon Dioxide BUN Creatinine Glucose POC Glucose 181 H 153 H Hemoglobin A1c Lactic Acid Calcium Magnesium Ferritin Total Bilirubin AST ALT Alkaline Phosphatase Lactate Dehydrogenase Total Creatine Kinase C-Reactive Protein Total Protein Albumin Triglycerides Arterial Blood Glucose 185 H Arterial Blood Ionized Calcium 4.1 L Ur Specific [place] Urine WBC (Auto) Vancomycin Trough Coronavirus (PCR) 12/25/20 12/25/20 12/25/20 11:17 11:17 11:17 WBC 19.6 H RBC 2.82 L Hgb 8.1 L Hct 25.2 L MCHC RDW 16.2 H Plt Count Lymph % (Auto) [place] % (Auto) Lymph # (Auto) [place] # (Auto) Baso # (Auto) Seg Neutrophils % Seg Neuts % (Manual) Lymphocytes % (Manual) Nucleated RBC % Seg Neutrophils # Seg Neutrophils # Man Lymphocytes # (Manual) D-Dimer ABG pH POC ABG pCO2 POC ABG pO2 ABG pO2 ABG HCO3 ABG O2 Saturation ABG Base Excess ABG Hemoglobin ABG Oxyhemoglobin ABG Sodium ABG Potassium ABG Chloride ABG Glucose Oxyhemoglobin Carboxyhemoglobin Sodium 136 L Potassium Chloride 92.3 L Carbon Dioxide 44 H* BUN Creatinine 0.3 L Glucose 240 H POC Glucose Hemoglobin A1c Lactic Acid Calcium 7.3 L Magnesium Ferritin Total Bilirubin AST ALT Alkaline Phosphatase Lactate Dehydrogenase Total Creatine Kinase C-Reactive Protein Total Protein Albumin Triglycerides 328 H Arterial Blood Glucose Arterial Blood Ionized Calcium Ur Specific [place] Urine WBC (Auto) Vancomycin Trough Coronavirus (PCR) 12/25/20 12/25/20 12/25/20 12:07 17:52 21:49 WBC RBC Hgb Hct MCHC RDW Plt Count Lymph % (Auto) [place] % (Auto) Lymph # (Auto) [place] # (Auto) Baso # (Auto) Seg Neutrophils % Seg Neuts % (Manual) Lymphocytes % (Manual) Nucleated RBC % Seg Neutrophils # Seg Neutrophils # Man Lymphocytes # (Manual) D-Dimer ABG pH POC ABG pCO2 POC ABG pO2 ABG pO2 ABG HCO3 ABG O2 Saturation ABG Base Excess ABG Hemoglobin ABG Oxyhemoglobin ABG Sodium ABG Potassium ABG Chloride ABG Glucose Oxyhemoglobin Carboxyhemoglobin Sodium Potassium Chloride Carbon Dioxide BUN Creatinine Glucose POC Glucose 210 H 188 H 152 H Hemoglobin A1c Lactic Acid Calcium Magnesium Ferritin Total Bilirubin AST ALT Alkaline Phosphatase Lactate Dehydrogenase Total Creatine Kinase C-Reactive Protein Total Protein Albumin Triglycerides Arterial Blood Glucose Arterial Blood Ionized Calcium Ur Specific [place] Urine WBC (Auto) Vancomycin Trough Coronavirus (PCR) 12/25/20 12/26/20 12/26/20 23:47 04:00 05:20 WBC RBC Hgb Hct MCHC RDW Plt Count Lymph % (Auto) [place] % (Auto) Lymph # (Auto) [place] # (Auto) Baso # (Auto) Seg Neutrophils % Seg Neuts % (Manual) Lymphocytes % (Manual) Nucleated RBC % Seg Neutrophils # Seg Neutrophils # Man Lymphocytes # (Manual) D-Dimer ABG pH POC ABG pCO2 73.4 H POC ABG pO2 58.8 L ABG pO2 ABG HCO3 ABG O2 Saturation ABG Base Excess ABG Hemoglobin 7.4 L ABG Oxyhemoglobin ABG Sodium 135.2 L ABG Potassium ABG Chloride 96.0 L ABG Glucose 164 H Oxyhemoglobin Carboxyhemoglobin Sodium Potassium Chloride Carbon Dioxide BUN Creatinine Glucose POC Glucose 138 H 147 H Hemoglobin A1c Lactic Acid Calcium Magnesium Ferritin Total Bilirubin AST ALT Alkaline Phosphatase Lactate Dehydrogenase Total Creatine Kinase C-Reactive Protein Total Protein Albumin Triglycerides Arterial Blood Glucose 164 H Arterial Blood Ionized Calcium 4.1 L Ur Specific [place] Urine WBC (Auto) Vancomycin Trough Coronavirus (PCR) 12/26/20 12/26/20 12/26/20 05:26 05:26 05:26 WBC 16.2 H RBC 2.75 L Hgb 7.8 L Hct 24.1 L MCHC RDW 16.3 H Plt Count 451 H Lymph % (Auto) [place] % (Auto) Lymph # (Auto) [place] # (Auto) Baso # (Auto) Seg Neutrophils % Seg Neuts % (Manual) 87.0 H Lymphocytes % (Manual) Nucleated RBC % 5.0 H Seg Neutrophils # Seg Neutrophils # Man 14.1 H Lymphocytes # (Manual) 0.0 L D-Dimer ABG pH POC ABG pCO2 POC ABG pO2 ABG pO2 ABG HCO3 ABG O2 Saturation ABG Base Excess ABG Hemoglobin ABG Oxyhemoglobin ABG Sodium ABG Potassium ABG Chloride ABG Glucose Oxyhemoglobin Carboxyhemoglobin Sodium Potassium Chloride 95.2 L Carbon Dioxide 44 H* BUN Creatinine 0.2 L Glucose 155 H POC Glucose Hemoglobin A1c Lactic Acid Calcium 7.4 L Magnesium Ferritin Total Bilirubin AST ALT Alkaline Phosphatase Lactate Dehydrogenase Total Creatine Kinase C-Reactive Protein Total Protein 6.0 L Albumin 1.6 L Triglycerides 307 H Arterial Blood Glucose Arterial Blood Ionized Calcium Ur Specific [place] Urine WBC (Auto) Vancomycin Trough Coronavirus (PCR) 12/26/20 12/26/20 12/26/20 11:21 17:26 23:22 WBC RBC Hgb Hct MCHC RDW Plt Count Lymph % (Auto) [place] % (Auto) Lymph # (Auto) [place] # (Auto) Baso # (Auto) Seg Neutrophils % Seg Neuts % (Manual) Lymphocytes % (Manual) Nucleated RBC % Seg Neutrophils # Seg Neutrophils # Man Lymphocytes # (Manual) D-Dimer ABG pH POC ABG pCO2 POC ABG pO2 ABG pO2 ABG HCO3 ABG O2 Saturation ABG Base Excess ABG Hemoglobin ABG Oxyhemoglobin ABG Sodium ABG Potassium ABG Chloride ABG Glucose Oxyhemoglobin Carboxyhemoglobin Sodium Potassium Chloride Carbon Dioxide BUN Creatinine Glucose POC Glucose 127 H 134 H 125 H Hemoglobin A1c Lactic Acid Calcium Magnesium Ferritin Total Bilirubin AST ALT Alkaline Phosphatase Lactate Dehydrogenase Total Creatine Kinase C-Reactive Protein Total Protein Albumin Triglycerides Arterial Blood Glucose Arterial Blood Ionized Calcium Ur Specific [place] Urine WBC (Auto) Vancomycin Trough Coronavirus (PCR) 12/27/20 12/27/20 12/27/20 03:19 05:17 10:52 WBC RBC Hgb Hct MCHC RDW Plt Count Lymph % (Auto) [place] % (Auto) Lymph # (Auto) [place] # (Auto) Baso # (Auto) Seg Neutrophils % Seg Neuts % (Manual) Lymphocytes % (Manual) Nucleated RBC % Seg Neutrophils # Seg Neutrophils # Man Lymphocytes # (Manual) D-Dimer ABG pH POC ABG pCO2 75.0 H POC ABG pO2 74.3 L ABG pO2 ABG HCO3 ABG O2 Saturation ABG Base Excess ABG Hemoglobin 7.3 L ABG Oxyhemoglobin 92.8 L ABG Sodium 135.6 L ABG Potassium ABG Chloride ABG Glucose 151 H Oxyhemoglobin Carboxyhemoglobin 2.0 H Sodium 136 L Potassium Chloride 96.8 L Carbon Dioxide 38 H BUN Creatinine 0.2 L Glucose 139 H POC Glucose 121 H Hemoglobin A1c Lactic Acid Calcium 7.0 L Magnesium Ferritin Total Bilirubin AST 52 H ALT Alkaline Phosphatase Lactate Dehydrogenase Total Creatine Kinase C-Reactive Protein Total Protein 4.7 L D Albumin 1.1 L Triglycerides Arterial Blood Glucose 151 H Arterial Blood Ionized Calcium 4.2 L Ur Specific [place] Urine WBC (Auto) Vancomycin Trough Coronavirus (PCR) 12/27/20 12/27/20 12/27/20 12:02 14:09 17:36 WBC 14.4 H RBC 2.82 L Hgb 8.0 L Hct 25.6 L MCHC 31 L RDW 16.4 H Plt Count 442 H Lymph % (Auto) [place] % (Auto) Lymph # (Auto) [place] # (Auto) Baso # (Auto) Seg Neutrophils % Seg Neuts % (Manual) 36.0 L Lymphocytes % (Manual) 7.0 L Nucleated RBC % 18.0 H Seg Neutrophils # Seg Neutrophils # Man Lymphocytes # (Manual) 1.0 L D-Dimer ABG pH POC ABG pCO2 POC ABG pO2 ABG pO2 ABG HCO3 ABG O2 Saturation ABG Base Excess ABG Hemoglobin ABG Oxyhemoglobin ABG Sodium ABG Potassium ABG Chloride ABG Glucose Oxyhemoglobin Carboxyhemoglobin Sodium Potassium Chloride Carbon Dioxide BUN Creatinine Glucose POC Glucose 126 H 107 H Hemoglobin A1c Lactic Acid Calcium Magnesium Ferritin Total Bilirubin AST ALT Alkaline Phosphatase Lactate Dehydrogenase Total Creatine Kinase C-Reactive Protein Total Protein Albumin Triglycerides Arterial Blood Glucose Arterial Blood Ionized Calcium Ur Specific [place] Urine WBC (Auto) Vancomycin Trough Coronavirus (PCR) 12/27/20 12/28/20 12/28/20 22:58 03:48 05:45 WBC 13.4 H RBC 2.78 L Hgb 7.9 L Hct 25.1 L MCHC RDW 16.4 H Plt Count 484 H Lymph % (Auto) [place] % (Auto) Lymph # (Auto) [place] # (Auto) Baso # (Auto) Seg Neutrophils % Seg Neuts % (Manual) 86.0 H Lymphocytes % (Manual) 2.0 L Nucleated RBC % 2.0 H Seg Neutrophils # Seg Neutrophils # Man 11.5 H Lymphocytes # (Manual) 0.3 L D-Dimer ABG pH POC ABG pCO2 73.1 H POC ABG pO2 66.2 L ABG pO2 ABG HCO3 ABG O2 Saturation ABG Base Excess ABG Hemoglobin 8.9 L ABG Oxyhemoglobin 90.3 L ABG Sodium ABG Potassium 3.3 L ABG Chloride ABG Glucose 107 H Oxyhemoglobin Carboxyhemoglobin 1.6 H Sodium Potassium Chloride Carbon Dioxide BUN Creatinine Glucose POC Glucose 130 H Hemoglobin A1c Lactic Acid Calcium Magnesium Ferritin Total Bilirubin AST ALT Alkaline Phosphatase Lactate Dehydrogenase Total Creatine Kinase C-Reactive Protein Total Protein Albumin Triglycerides Arterial Blood Glucose 107 H Arterial Blood Ionized Calcium 4.4 L Ur Specific [place] Urine WBC (Auto) Vancomycin Trough Coronavirus (PCR) 12/28/20 12/29/20 12/29/20 05:45 04:00 04:00 WBC 18.0 H RBC 2.80 L Hgb 8.0 L Hct 25.3 L MCHC RDW 17.1 H Plt Count 486 H Lymph % (Auto) [place] % (Auto) Lymph # (Auto) [place] # (Auto) Baso # (Auto) Seg Neutrophils % Seg Neuts % (Manual) 83.0 H Lymphocytes % (Manual) 10.0 L Nucleated RBC % 2.0 H Seg Neutrophils # Seg Neutrophils # Man 14.9 H Lymphocytes # (Manual) D-Dimer ABG pH POC ABG pCO2 POC ABG pO2 ABG pO2 ABG HCO3 ABG O2 Saturation ABG Base Excess ABG Hemoglobin ABG Oxyhemoglobin ABG Sodium ABG Potassium ABG Chloride ABG Glucose Oxyhemoglobin Carboxyhemoglobin Sodium Potassium 3.2 L D Chloride Carbon Dioxide 41 H* 38 H BUN Creatinine 0.3 L 0.3 L Glucose 135 H POC Glucose Hemoglobin A1c Lactic Acid Calcium 7.3 L 7.5 L Magnesium Ferritin Total Bilirubin AST ALT Alkaline Phosphatase Lactate Dehydrogenase Total Creatine Kinase C-Reactive Protein Total Protein 6.0 L D 6.1 L Albumin 1.4 L 1.5 L Triglycerides 284 H Arterial Blood Glucose Arterial Blood Ionized Calcium Ur Specific [place] Urine WBC (Auto) Vancomycin Trough Coronavirus (PCR) 12/29/20 12/29/20 12/29/20 04:00 05:42 11:54 WBC RBC Hgb Hct MCHC RDW Plt Count Lymph % (Auto) [place] % (Auto) Lymph # (Auto) [place] # (Auto) Baso # (Auto) Seg Neutrophils % Seg Neuts % (Manual) Lymphocytes % (Manual) Nucleated RBC % Seg Neutrophils # Seg Neutrophils # Man Lymphocytes # (Manual) D-Dimer ABG pH 7.319 L POC ABG pCO2 71.0 H POC ABG pO2 65.2 L ABG pO2 ABG HCO3 ABG O2 Saturation ABG Base Excess ABG Hemoglobin 8.7 L ABG Oxyhemoglobin ABG Sodium ABG Potassium ABG Chloride ABG Glucose 140 H Oxyhemoglobin Carboxyhemoglobin Sodium Potassium Chloride Carbon Dioxide BUN Creatinine Glucose POC Glucose 126 H 128 H Hemoglobin A1c Lactic Acid Calcium Magnesium Ferritin Total Bilirubin AST ALT Alkaline Phosphatase Lactate Dehydrogenase Total Creatine Kinase C-Reactive Protein Total Protein Albumin Triglycerides Arterial Blood Glucose 140 H Arterial Blood Ionized Calcium 4.3 L Ur Specific [place] Urine WBC (Auto) Vancomycin Trough Coronavirus (PCR) 12/29/20 12/29/20 12/30/20 17:54 23:47 04:00 WBC 15.0 H RBC 2.89 L Hgb 8.2 L Hct 26.1 L MCHC RDW 17.3 H Plt Count Lymph % (Auto) 9.2 L [place] % (Auto) Lymph # (Auto) [place] # (Auto) Baso # (Auto) Seg Neutrophils % 87.0 H Seg Neuts % (Manual) Lymphocytes % (Manual) Nucleated RBC % Seg Neutrophils # 13.1 H Seg Neutrophils # Man Lymphocytes # (Manual) D-Dimer ABG pH POC ABG pCO2 POC ABG pO2 ABG pO2 ABG HCO3 ABG O2 Saturation ABG Base Excess ABG Hemoglobin ABG Oxyhemoglobin ABG Sodium ABG Potassium ABG Chloride ABG Glucose Oxyhemoglobin Carboxyhemoglobin Sodium Potassium Chloride Carbon Dioxide BUN Creatinine Glucose POC Glucose 155 H 139 H Hemoglobin A1c Lactic Acid Calcium Magnesium Ferritin Total Bilirubin AST ALT Alkaline Phosphatase Lactate Dehydrogenase Total Creatine Kinase C-Reactive Protein Total Protein Albumin Triglycerides Arterial Blood Glucose Arterial Blood Ionized Calcium Ur Specific [place] Urine WBC (Auto) Vancomycin Trough Coronavirus (PCR) 12/30/20 12/30/20 12/30/20 04:00 04:14 05:25 WBC RBC Hgb Hct MCHC RDW Plt Count Lymph % (Auto) [place] % (Auto) Lymph # (Auto) [place] # (Auto) Baso # (Auto) Seg Neutrophils % Seg Neuts % (Manual) Lymphocytes % (Manual) Nucleated RBC % Seg Neutrophils # Seg Neutrophils # Man Lymphocytes # (Manual) D-Dimer ABG pH POC ABG pCO2 69.3 H POC ABG pO2 61.3 L ABG pO2 ABG HCO3 ABG O2 Saturation ABG Base Excess ABG Hemoglobin 9.1 L ABG Oxyhemoglobin 88.0 L ABG Sodium ABG Potassium ABG Chloride ABG Glucose 159 H Oxyhemoglobin Carboxyhemoglobin 1.8 H Sodium Potassium Chloride Carbon Dioxide 37 H BUN Creatinine 0.3 L Glucose 156 H POC Glucose 141 H Hemoglobin A1c Lactic Acid Calcium 7.6 L Magnesium Ferritin Total Bilirubin AST ALT Alkaline Phosphatase Lactate Dehydrogenase Total Creatine Kinase C-Reactive Protein Total Protein 6.0 L Albumin 1.4 L Triglycerides Arterial Blood Glucose 159 H Arterial Blood Ionized Calcium 4.4 L Ur Specific [place] Urine WBC (Auto) Vancomycin Trough Coronavirus (PCR) 12/30/20 12/30/20 12/30/20 12:18 17:37 23:55 WBC RBC Hgb Hct MCHC RDW Plt Count Lymph % (Auto) [place] % (Auto) Lymph # (Auto) [place] # (Auto) Baso # (Auto) Seg Neutrophils % Seg Neuts % (Manual) Lymphocytes % (Manual) Nucleated RBC % Seg Neutrophils # Seg Neutrophils # Man Lymphocytes # (Manual) D-Dimer ABG pH POC ABG pCO2 POC ABG pO2 ABG pO2 ABG HCO3 ABG O2 Saturation ABG Base Excess ABG Hemoglobin ABG Oxyhemoglobin ABG Sodium ABG Potassium ABG Chloride ABG Glucose Oxyhemoglobin Carboxyhemoglobin Sodium Potassium Chloride Carbon Dioxide BUN Creatinine Glucose POC Glucose 147 H 167 H 141 H Hemoglobin A1c Lactic Acid Calcium Magnesium Ferritin Total Bilirubin AST ALT Alkaline Phosphatase Lactate Dehydrogenase Total Creatine Kinase C-Reactive Protein Total Protein Albumin Triglycerides Arterial Blood Glucose Arterial Blood Ionized Calcium Ur Specific [place] Urine WBC (Auto) Vancomycin Trough Coronavirus (PCR) 12/31/20 12/31/20 12/31/20 04:00 05:32 06:19 WBC RBC Hgb Hct MCHC RDW Plt Count Lymph % (Auto) [place] % (Auto) Lymph # (Auto) [place] # (Auto) Baso # (Auto) Seg Neutrophils % Seg Neuts % (Manual) Lymphocytes % (Manual) Nucleated RBC % Seg Neutrophils # Seg Neutrophils # Man Lymphocytes # (Manual) D-Dimer ABG pH 7.316 L POC ABG pCO2 POC ABG pO2 ABG pO2 56.9 L ABG HCO3 38.0 H ABG O2 Saturation 90.4 L ABG Base Excess 11.1 H ABG Hemoglobin 5.1 L ABG Oxyhemoglobin ABG Sodium ABG Potassium ABG Chloride ABG Glucose Oxyhemoglobin 87.7 L Carboxyhemoglobin Sodium Potassium Chloride Carbon Dioxide 37 H BUN Creatinine 0.3 L Glucose 152 H POC Glucose 158 H Hemoglobin A1c Lactic Acid Calcium 7.3 L Magnesium Ferritin Total Bilirubin AST ALT Alkaline Phosphatase Lactate Dehydrogenase Total Creatine Kinase C-Reactive Protein Total Protein 6.1 L Albumin 1.4 L Triglycerides Arterial Blood Glucose Arterial Blood Ionized Calcium Ur Specific [place] Urine WBC (Auto) Vancomycin Trough Coronavirus (PCR) 12/31/20 12/31/20 12/31/20 12:22 18:17 23:37 WBC RBC Hgb Hct MCHC RDW Plt Count Lymph % (Auto) [place] % (Auto) Lymph # (Auto) [place] # (Auto) Baso # (Auto) Seg Neutrophils % Seg Neuts % (Manual) Lymphocytes % (Manual) Nucleated RBC % Seg Neutrophils # Seg Neutrophils # Man Lymphocytes # (Manual) D-Dimer ABG pH POC ABG pCO2 POC ABG pO2 ABG pO2 ABG HCO3 ABG O2 Saturation ABG Base Excess ABG Hemoglobin ABG Oxyhemoglobin ABG Sodium ABG Potassium ABG Chloride ABG Glucose Oxyhemoglobin Carboxyhemoglobin Sodium Potassium Chloride Carbon Dioxide BUN Creatinine Glucose POC Glucose 131 H 136 H 139 H Hemoglobin A1c Lactic Acid Calcium Magnesium Ferritin Total Bilirubin AST ALT Alkaline Phosphatase Lactate Dehydrogenase Total Creatine Kinase C-Reactive Protein Total Protein Albumin Triglycerides Arterial Blood Glucose Arterial Blood Ionized Calcium Ur Specific [place] Urine WBC (Auto) Vancomycin Trough Coronavirus (PCR) 12/31/20 01/01/21 01/01/21 Unknown 04:50 05:10 WBC 16.2 H RBC 2.89 L Hgb 8.0 L Hct 25.9 L MCHC 31 L RDW 18.2 H Plt Count 458 H Lymph % (Auto) [place] % (Auto) Lymph # (Auto) [place] # (Auto) Baso # (Auto) Seg Neutrophils % Seg Neuts % (Manual) 96.0 H Lymphocytes % (Manual) 3.0 L Nucleated RBC % 3.0 H Seg Neutrophils # Seg Neutrophils # Man 15.6 H Lymphocytes # (Manual) 0.5 L D-Dimer ABG pH 7.268 L POC ABG pCO2 POC ABG pO2 ABG pO2 56.9 L ABG HCO3 38.8 H ABG O2 Saturation 85.5 L ABG Base Excess 10.7 H ABG Hemoglobin 6.4 L ABG Oxyhemoglobin ABG Sodium ABG Potassium ABG Chloride ABG Glucose Oxyhemoglobin 82.8 L Carboxyhemoglobin Sodium Potassium Chloride Carbon Dioxide BUN Creatinine Glucose POC Glucose 143 H Hemoglobin A1c Lactic Acid Calcium Magnesium Ferritin Total Bilirubin AST ALT Alkaline Phosphatase Lactate Dehydrogenase Total Creatine Kinase C-Reactive Protein Total Protein Albumin Triglycerides Arterial Blood Glucose Arterial Blood Ionized Calcium Ur Specific [place] Urine WBC (Auto) Vancomycin Trough Coronavirus (PCR) 01/01/21 01/01/21 01/01/21 11:29 17:00 17:33 WBC 16.1 H RBC 2.68 L Hgb 7.8 L Hct 24.5 L MCHC RDW 18.9 H Plt Count Lymph % (Auto) [place] % (Auto) Lymph # (Auto) [place] # (Auto) Baso # (Auto) Seg Neutrophils % Seg Neuts % (Manual) Lymphocytes % (Manual) 9.0 L Nucleated RBC % 2.0 H Seg Neutrophils # Seg Neutrophils # Man Lymphocytes # (Manual) D-Dimer ABG pH POC ABG pCO2 POC ABG pO2 ABG pO2 ABG HCO3 ABG O2 Saturation ABG Base Excess ABG Hemoglobin ABG Oxyhemoglobin ABG Sodium ABG Potassium ABG Chloride ABG Glucose Oxyhemoglobin Carboxyhemoglobin Sodium Potassium Chloride Carbon Dioxide BUN Creatinine Glucose POC Glucose 153 H 120 H Hemoglobin A1c Lactic Acid Calcium Magnesium Ferritin Total Bilirubin AST ALT Alkaline Phosphatase Lactate Dehydrogenase Total Creatine Kinase C-Reactive Protein Total Protein Albumin Triglycerides Arterial Blood Glucose Arterial Blood Ionized Calcium Ur Specific [place] Urine WBC (Auto) Vancomycin Trough Coronavirus (PCR) 01/01/21 01/02/21 01/02/21 23:23 04:45 05:28 WBC RBC Hgb Hct MCHC RDW Plt Count Lymph % (Auto) [place] % (Auto) Lymph # (Auto) [place] # (Auto) Baso # (Auto) Seg Neutrophils % Seg Neuts % (Manual) Lymphocytes % (Manual) Nucleated RBC % Seg Neutrophils # Seg Neutrophils # Man Lymphocytes # (Manual) D-Dimer ABG pH 7.219 L POC ABG pCO2 102.6 H POC ABG pO2 49.7 L ABG pO2 ABG HCO3 ABG O2 Saturation ABG Base Excess ABG Hemoglobin 8.4 L ABG Oxyhemoglobin 79.4 L ABG Sodium ABG Potassium ABG Chloride ABG Glucose 146 H Oxyhemoglobin Carboxyhemoglobin 2.3 H Sodium Potassium Chloride Carbon Dioxide BUN Creatinine Glucose POC Glucose 144 H 133 H Hemoglobin A1c Lactic Acid Calcium Magnesium Ferritin Total Bilirubin AST ALT Alkaline Phosphatase Lactate Dehydrogenase Total Creatine Kinase C-Reactive Protein Total Protein Albumin Triglycerides Arterial Blood Glucose 146 H Arterial Blood Ionized Calcium 4.4 L Ur Specific [place] Urine WBC (Auto) Vancomycin Trough Coronavirus (PCR) 01/02/21 Unknown WBC RBC Hgb Hct MCHC RDW Plt Count Lymph % (Auto) [place] % (Auto) Lymph # (Auto) [place] # (Auto) Baso # (Auto) Seg Neutrophils % Seg Neuts % (Manual) Lymphocytes % (Manual) Nucleated RBC % Seg Neutrophils # Seg Neutrophils # Man Lymphocytes # (Manual) D-Dimer ABG pH POC ABG pCO2 POC ABG pO2 ABG pO2 ABG HCO3 ABG O2 Saturation ABG Base Excess ABG Hemoglobin ABG Oxyhemoglobin ABG Sodium ABG Potassium ABG Chloride ABG Glucose Oxyhemoglobin Carboxyhemoglobin Sodium Potassium Chloride Carbon Dioxide BUN Creatinine Glucose POC Glucose Hemoglobin A1c Lactic Acid Calcium Magnesium Ferritin Total Bilirubin AST ALT Alkaline Phosphatase Lactate Dehydrogenase Total Creatine Kinase C-Reactive Protein Total Protein Albumin Triglycerides 718 H Arterial Blood Glucose Arterial Blood Ionized Calcium Ur Specific [place] Urine WBC (Auto) Vancomycin Trough Coronavirus (PCR)
--- NOTE | 2021-01-02 11:35 | Progress Note ---
Assessment and Plan Assessment and plan: 59-year-old female who is smoker who presented to [facility] with shortness of breath cough fever weakness for 1 to 2 days prior to arrival. Per EMS the patient was severely hypoxic with saturations in the low 80s. With all oxygen and nonrebreather came down to low 90s. ID, pulmonary, CCM were consulted. Septic Shock Coag Negative staph/Entrococcus bactermia MRSA/Klebsiella in sputum COVID-19 pneumonia Acute hypoxic hypercapnic respiratory failure Bilateral pneumothorax Pneumomediastinum with subcutaneous emphysema Elevated D-dimer Transaminitis secondary to Covid 19 Klebsiella pneumonia Type 2 diabetes mellitus Severe protien calorie malnutrition secondary to critical illness Metabolic alkalosis Hypercapnia 2/: Patient continues on BiPAP throughout the night. Labs are remarkable for hypoxia with improving renal function but lactic acidosis without fever. CTA has been ordered to rule out pulmonary embolism. I agree with increasing enoxaparin to twice daily full dose for empiric treatment of pulmonary embolism. Will obtain ID consultation on further evaluation for possible underlying pneumonia versus COVID-19. We will also obtain echocardiogram for evaluation. Will discontinue fluids at this time. 2/2; Continue supportive care, Patient remains with very guarded prognosis, remains on BiPAP, continues on Remdesivir, and steroids. Will continue anticoagulation, unable to get CTA Chest due to patients unstable clinical status. Will adjust insulin for better blood glucose 2/3: Continues on BIPAP, no clear improvement at this time. Will continue steroids therapy Remdesivir and also Full anticoagulation at this time. Will update family. Discussed with Cw Operator. 2/4: Taking a break from the BiPAP on high flow and nonrebreather 100% with saturation of 90% becomes hypoxic with any movement. Cw Operator input noted will get a dose of Lasix today. Will await a discussion with ID for possibly increasing steroid. I updated Patient's Cousin, Tayla Esquivel who is the emergency contact printer dry film. Blood sugar remains fluctuating secondary to steriods, Encouraged Prone positioning. Noted with mild hyponatremia we will continue to monitor and manage 2/5: Continue supportive care wean oxygen as tolerated prognosis remains guarded. Encouraged to progress as tolerated. Awaiting labs today. Discussed with nursing staff and patient at bedside. 2/6: Discontinued Dexamethasone as Solumedrol started secondary to increased oxygen demand. Will give additional insulin for better control. Continue oxygen support patient still on high flow. Prognosis still guarded 11/22: Patient was intubated and placed on mechanical ventilation. Continue current medication. Will check a.m. labs today. Noted still with hypotension. Doubt septic shock at this time as patient has no new fever. Will adjust insulin for better blood sugar control. 11/23: Patient admitted with COVID-19 despite all efforts patient remains severely hypoxic and now is intubated. Cw Operator input noted. Blood pressure marginal at this time. Very poor prognosis. Continue Solu-Medrol. 11/24. Patient remains very hypoxic. Blood pressure borderline. Plan for initiation of paralytic agents as per plant controller. Patient may need to be transferred if no improvement. 11/26. Off paralytics. Remains intubated. On steroids. Prognosis is poor. 11/27. Chest xray shows pneumomediastinum and subcutaneous emphysema. Surgery con sulted. Plan for chest tube placement. Sputum culture grew MRSA. Patient started on vancomycin per ID. 11/28. Right chest tube placed yesterday by surgery. Repeat chest x-ray showed left small pneumothorax. Plan for chest tube placement on the left today. Remains on paralytic agents. 11/29. Remains intubated on vent. Had left chest tube placed yesterday. Vitals reviewed. Critical care following 11/30/ Remains on mechanical ventilation. Worsening hypoxia. Bilateral chest tubes in place. Vitals reviewed. Labs reviewed 12/01: Chest tube and mechanical ventilation remains in place, poor prognosis, FIO2 remains at 90%, adjust insulin for better blood glucose control 12/02: Patient remains on full ventilatory support and steroids, still with worsening leukocytosis ?inflammatory or infectious vs steroids. Continue vancomycin. 12/03; slowly weaning, 12/04: Still on the vent FiO2 down to 65% PEEP remains at 18. Still with poor prognosis. 12/05: Patient continues on full ventilatory support per plant controller PEEP remains at 18. Still with hypercapnic respiratory failure. FiO2 down to 60% this morning. Chest tube to suction still weaning off steroids in the deliberation ongoing for possible a third chest tube as last documentation by surgery shows no plan for it at this time. Continue to manage insulin for better blood sugar control. 12/06:weaned down to 60%, continue supportive care, unable to wean, 12/07; patient remains intubated on ventilatory support, chest tubes in place trach and PEG when patient's Covid test is negative,Per surgery. 12/08; Patient remains intubated remains with hypercapnia and hypoxia. Chest tube still remain in place. He is off antibiotics at this time. Continue steroids which is likely resultant to the leukocytosis. Cw Operator and surgeon following ID input is noted. Prognosis remains guarded to poor 12/10; patient remains intubated on vent, unable to wean awaiting trach and PEG when Covid test is negative, Continue current management 12/11; patient awaiting trach and PEG when Covid test is negative, vent dependent, poor prognosis 12/12; clinically no change, vent dependent, Patient is critically ill with very poor prognosis, awaiting trach and PEG when COVID-19 test turns negative. Plan discussed with nursing staff. Caregivers have discussed with patient's family periodically 12/13: Patient is critically ill with very poor prognosis, awaiting trach and PEG when COVID-19 test turns negative. Plan discussed with nursing staff. Caregivers have discussed with patient's family periodically 12/14: Increase UOP which we will monitor and replete as needed. Patient remain hypoxemic on ABG despite 100 FiO2, remains on fentanyl, precedex, versed and levo gtt. 12/15: Patient remains sedated on fentanyl at 3 mcg, Versed at 30 mg, dexamethasone 0.3 and was on Levophed 6 mcg this morning. Patient's vent settings rate of 30, tidal volume 425, PEEP of 18, FiO2 of 85. RT attempted to wean as tolerated. No acute events reported overnight. Bilateral chest tubes to wall suction. 12/16: Overnight the patient was noted to be bradycardic, Precedex drip was increased to 0.6/fentanyl to 4 mcg/Versed 5 mg, bilateral chest tube to suction. Current vent settings for 425/30/18/0.75, RT to wean as tolerated 12/17: Patient's T-max overnight was 101.2, obtain CXR today, blood culture x2 per ID. Patient remains on fentanyl, Versed, Precedex and Levophed. Current vent settings AC 425/30/18/0.75, RT to wean as tolerated. Continue steroid taper. 12/18: Patient remains sedated on fentanyl, Versed, Precedex and has vasopressor support of Levophed, current vent settings 425/30/18/0.75 with bilateral chest tubes to wall suction. Patient's blood culture from 12/17 grew gram-positive cocci in pairs and chains however the patient is on vancomycin and cefepime. We will continue to follow for speciation and sensitivity. 12/19: Unfortunately remains on full ventilatory support prognosis remains very poor. No new fever however since 12/17. Continue to follow cultures not finalized yet. Antibiotics per ID critical care management input noted. Patient remains on high FiO2 and PEEP at this time. 12/20: Still with intermittent fever, likely secondary to covid 19, still with hyponatremia, continue with tube feed. cultures with coagulas negative staph, await further ID input. Continues on abx. 12/21: Patient remains on fentanyl, Precedex, Versed and Levophed and assist control for 25/30/18/.100 with bilateral chest tubes in place. Patient remains on antibiotic therapy. No acute events reported overnight. 12/22: Patient remains sedated on Precedex and fentanyl and on vasopressor support, blood cultures grew coag negative Staphylococcus and Enterococcus and antibiotic therapy was deescalated to ampicillin by infectious disease. This morning patient was on assist control for 25/30/18/0.100 and respiratory therapy to decrease FiO2 as tolerated. 12/23: Patient remains sedated on Versed, fentanyl, propofol, dexamethasone and vasopressor support with Levophed. Patient is on ampicillin with a T-max of 99 and current vent settings assist-control 425/30/18/0.90 which is being weaned as tolerated by RT. Patient bowel regimen escalated. 12/24: Patient was febrile overnight to 102, remains sedated on Versed, fentanyl, propofol and Precedex and on respiratory support with Levophed. This morning at the time my examination patient was on assist control 425/30/18/0.100. Patient's bowel regimen was escalated. This afternoon patient SPO2 dropped into the upper 60s and low 70s, patient was removed off the ventilator and bagged by RT with improvement in his SPO2 to mid 70s and his ventilator settings were adju sted with an increase in PEEP to 22 and reduction in tidal volume. Patient remained with SPO2 in the 70s to 80s then suddenly dropped his SPO2 again. A CXR was obtained and patient received 40 mg of IV Lasix. CXR showed pneumothorax and general surgery was consulted for chest tube placement. Harmony vergara's existing right chest tube was replaced after removal. During chest tube was placed on the right side and a repeat CXR is being performed. Dr. German and Dr. Henry were kept up to date throughout the process and Dr. Henry was at beside during this time. I attempted to call Kehinde but was unable to contact him but left a voicemail. Jd was called and informed of changes with translation provided by Tayla. I spoke to them on the phone for over 30 minutes and explained the situation. They did not wish to change his CODE STATUS. Per CCM the patient respikes his temperature over the next 24 hours we will reculture his urine and blood. Patient remains on antibiotic therapy for 1 4 days per infectious disease 01/04/2021. Repeat blood cultures are negative. 12/25: Patient developed subcu emphysema on right chest and a repeat CXR shows minimal pneumothorax on the right chest wall which has not increased in size. At the time of my examination patient was on assist control 400/30/18/0.100 and the subcutaneous emphysema was noted after the patient's PEEP was increased. Patient remains sedated on Versed, fentanyl, Precedex and propofol with vasopressor support of Levophed. Patient's family decided to make the patient an AND and his CODE STATUS was updated. We will continue supportive care. Infectious disease has escalated antibiotic therapy to Zosyn. 12/26. Remains mechanically ventilated. On AC 30/400/100% PEEP 22. Not responsive. Sedated. On pressors. Labs reviewed. On antibiotics. 12/27. No change in medical condition. Remains on AC 30/40/1 100% PEEP of 22. Sedated and on pressors. On antibiotics-Zosyn. ID and critical care on board. General surgery also following for management of chest tubes. Prognosis is very poor 12/28: Patient remains sedated on Versed, fentanyl, propofol and Precedex and has vasopressor support with Levophed quad strength at 22. Patient subcu air seems to be bilateral in his upper chest. At the time my examination patient is on 400/30/22/.95 and RT will wean his vent 0.90. Patient still has leukocytosis, metabolic alkalosis, hypokalemia. 12/29: Patient remains sedated on Versed, fentanyl, Precedex and propofol with va sopressor support with Levophed. Patient remains on assist control 400/30/22/0.90 and still [place] ptosis. Patient hypokalemia has resolved 12/30: Remains sedated on propofol, Versed, fentanyl, Precedex and on Levophed. Current vent settings assist-control 400/30/22/0.80 and improving leukocytosis and metabolic alkalosis. He will complete Zosyn today. No acute events reported overnight. Patient's urine output has decreased over the past couple days and we will continue to monitor. 12/31: Patient remains intubated on mechanical ventilation. Continue RASS goal - 4 per CCM. Continue Zosyn per ID recommendations with completion of antibiotics tomorrow. Patient with extremely poor prognosis and agree with DNR status. 01/01: Patient currently on AC/PRVC mode rate 30, tidal volume 400, FiO2 100% and PEEP of 22. Patient currently with sedation of propofol, fentanyl and Versed. Patient requiring pressors of Levophed. Currently chest tubes to suction and repeat chest x-ray on Monday. Wean FiO2 as tolerated. Guarded prognosis. 01/02: Patient currently on AC/PRVC mode rate 30, tidal volume 400, FiO2 80% and PEEP of 22. Patient currently with sedation of propofol, fentanyl and Versed. Patient requiring pressors of Levophed. Currently chest tubes to suction and repeat chest x-ray on Monday. Wean FiO2 as tolerated. Guarded prognosis. The high probability of a clinically significant, sudden or life threatening deterioration of the [cardiac, respiratory and neurological] system(s) required my full and direct attention, intervention and personal management. The aggregate critical care time was [32] minutes. This time is in addition to time spent performing reported procedures but includes the following: [x] Data Review and interpretation [x] Patient assessment and monitoring of vital signs [x] Documentation [x] Medication orders and management History Interval history: No new issues overnight Hospitalist Physical - Constitutional Vitals: Temp Pulse Resp BP Pulse Ox 98.9 F 123 H 30 H 108/60 86 01/02/21 07:43 01/02/21 11:15 01/02/21 11:15 01/02/21 11:15 01/02/21 11:15 General appearance: Present: no acute distress, other (comatose) - EENT Eyes: Present: PERRL, EOM intact ENT: hearing intact, clear oral mucosa, dentition normal - Neck Neck: Present: supple, normal ROM - Respiratory Respiratory effort: normal Respiratory: bilateral: CTA - Cardiovascular Rhythm: regular Heart Sounds: Present: S1 & S2. Absent: gallop, rub - Extremities Extremities: no ischemia, No edema, Full ROM - Abdominal General gastrointestinal: soft, non-tender, non-distended, normal bowel sounds - Integumentary Integumentary: Present: clear, warm, dry - Neurologic Neurologic: CNII-XII intact, moves all extremities HEART Score - HEART Score Troponin: Troponin T < 0.010 ng/mL (0.00-0.029) 12/11/20 06:30 Results - Labs CBC & Chem 7: 01/01/21 17:00 12/31/20 04:00 Labs: Laboratory Last Values WBC 16.1 K/mm3 (4.5-11.0) H 01/01/21 17:00 RBC 2.68 M/mm3 (3.65-5.03) L 01/01/21 17:00 Hgb 7.8 gm/dl (11.8-15.2) L 01/01/21 17:00 Hct 24.5 % (35.5-45.6) L 01/01/21 17:00 MCV 92 fl (84-94) 01/01/21 17:00 MCH 29 pg (28-32) 01/01/21 17:00 MCHC 32 % (32-34) 01/01/21 17:00 RDW 18.9 % (13.2-15.2) H 01/01/21 17:00 Plt Count 404 K/mm3 (140-440) 01/01/21 17:00 Lymph % (Auto) 9.2 % (13.4-35.0) L 12/30/20 04:00 [place] % (Auto) 2.9 % (0.0-7.3) 12/30/20 04:00 Eos % (Auto) 0.6 % (0.0-4.3) 12/30/20 04:00 Baso % (Auto) 0.3 % (0.0-1.8) 12/30/20 04:00 Lymph # (Auto) 1.4 K/mm3 (1.2-5.4) 12/30/20 04:00 [place] # (Auto) 0.4 K/mm3 (0.0-0.8) 12/30/20 04:00 Eos # (Auto) 0.1 K/mm3 (0.0-0.4) 12/30/20 04:00 Baso # (Auto) 0.0 K/mm3 (0.0-0.1) 12/30/20 04:00 Add Manual Diff Complete 01/01/21 17:00 Total Counted 100 01/01/21 17:00 Seg Neutrophils % 87.0 % (40.0-70.0) H 12/30/20 04:00 Seg Neuts % (Manual) 47.0 % (40.0-70.0) 01/01/21 17:00 Band Neutrophils % 41.0 % 01/01/21 17:00 Lymphocytes % (Manual) 9.0 % (13.4-35.0) L 01/01/21 17:00 Monocytes % (Manual) 3.0 % (0.0-7.3) 01/01/21 17:00 Eosinophils % (Manual) 2.0 % (0.0-4.3) 12/28/20 05:45 Metamyelocytes % 3.0 % 12/29/20 04:00 Myelocytes % 1.0 % 12/31/20 Unknown Nucleated RBC % 2.0 % (0.0-0.9) H 01/01/21 17:00 Seg Neutrophils # 13.1 K/mm3 (1.8-7.7) H 12/30/20 04:00 Seg Neutrophils # Man 7.6 K/mm3 (1.8-7.7) 01/01/21 17:00 Band Neutrophils # 6.6 K/mm3 01/01/21 17:00 Lymphocytes # (Manual) 1.4 K/mm3 (1.2-5.4) 01/01/21 17:00 Abs React Lymphs (Man) 0.0 K/mm3 01/01/21 17:00 Monocytes # (Manual) 0.5 K/mm3 (0.0-0.8) 01/01/21 17:00 Eosinophils # (Manual) 0.0 K/mm3 (0.0-0.4) 01/01/21 17:00 Basophils # (Manual) 0.0 K/mm3 (0.0-0.1) 01/01/21 17:00 Metamyelocytes # 0.0 K/mm3 01/01/21 17:00 Myelocytes # 0.0 K/mm3 01/01/21 17:00 Promyelocytes # 0.0 K/mm3 01/01/21 17:00 Blast Cells # 0.0 K/mm3 01/01/21 17:00 WBC Morphology Not Reportable 01/01/21 17:00 Hypersegmented Neuts Not Reportable 01/01/21 17:00 Hyposegmented Neuts Not Reportable 01/01/21 17:00 Hypogranular Neuts Not Reportable 01/01/21 17:00 Smudge Cells Not Reportable 01/01/21 17:00 Toxic Granulation Not Reportable 01/01/21 17:00 Toxic Vacuolation Not Reportable 01/01/21 17:00 Dohle Bodies Not Reportable 01/01/21 17:00 Pelger-Huet Anomaly Not Reportable 01/01/21 17:00 Tony Rods Not Reportable 01/01/21 17:00 Platelet Estimate Consistent w auto 01/01/21 17:00 Clumped Platelets Not Reportable 01/01/21 17:00 Plt Clumps, EDTA Not Reportable 01/01/21 17:00 Large Platelets Rare 01/01/21 17:00 Giant Platelets Not Reportable 01/01/21 17:00 Platelet Satelliting Not Reportable 01/01/21 17:00 Plt Morphology Comment Not Reportable 01/01/21 17:00 RBC Morphology Not Reportable 01/01/21 17:00 Dimorphic RBCs Not Reportable 01/01/21 17:00 Polychromasia Few 01/01/21 17:00 Hypochromasia Not Reportable 01/01/21 17:00 Poikilocytosis Not Reportable 01/01/21 17:00 Anisocytosis Few 01/01/21 17:00 Microcytosis Not Reportable 01/01/21 17:00 Macrocytosis Not Reportable 01/01/21 17:00 Spherocytes Not Reportable 01/01/21 17:00 Pappenheimer Bodies Not Reportable 01/01/21 17:00 Sickle Cells Not Reportable 01/01/21 17:00 Target Cells Not Reportable 01/01/21 17:00 Tear Drop Cells Not Reportable 01/01/21 17:00 Ovalocytes Not Reportable 01/01/21 17:00 Stomatocytes Rare 12/27/20 14:09 Helmet Cells Not Reportable 01/01/21 17:00 [place] Bodies Not Reportable 01/01/21 17:00 [place] Rings Not Reportable 01/01/21 17:00 Henrry Cells Not Reportable 01/01/21 17:00 Bite Cells Not Reportable 01/01/21 17:00 Crenated Cell Not Reportable 01/01/21 17:00 Elliptocytes Not Reportable 01/01/21 17:00 Acanthocytes (Spur) Not Reportable 01/01/21 17:00 Rouleaux Not Reportable 01/01/21 17:00 Hemoglobin C Crystals Not Reportable 01/01/21 17:00 Schistocytes Not Reportable 01/01/21 17:00 Malaria parasites Not Reportable 01/01/21 17:00 Yovani Bodies Not Reportable 01/01/21 17:00 Hem Pathologist Commnt No 01/01/21 17:00 D-Dimer 926.11 ng/mlDDU (0-234) H 11/26/20 06:04 ABG pH 7.219 (7.320-7.450) L 01/02/21 04:45 POC ABG pCO2 102.6 mmHg (32.0-48.0) H 01/02/21 04:45 ABG pCO2 86.9 mm Hg 01/01/21 04:50 POC ABG pO2 49.7 mmHg (83-108) L 01/02/21 04:45 ABG pO2 56.9 mm Hg (80.0-90.0) L 01/01/21 04:50 POC ABG HCO3 41.0 01/02/21 04:45 ABG HCO3 38.8 mmol/L (20.0-26.0) H 01/01/21 04:50 ABG O2 Saturation 81.5 (0-100) 01/02/21 04:45 ABG O2 Content 7.5 (0.0-44) 01/01/21 04:50 POC ABG Base Excess 11.1 01/02/21 04:45 ABG Base Excess 10.7 mmol/L (-2.0-3.0) H 01/01/21 04:50 ABG Hemoglobin 8.4 (12.0-17.5) L 01/02/21 04:45 ABG Oxyhemoglobin 79.4 (94-98) L 01/02/21 04:45 ABG Carboxyhemoglobin 2.8 % (0.0-5.0) 01/01/21 04:50 ABG Methemoglobin 0.3 (0.0-1.5) 01/02/21 04:45 ABG Sodium 142.1 mmol/L (136.0-145.0) 01/02/21 04:45 ABG Potassium 4.2 mmol/L (3.40-4.50) 01/02/21 04:45 ABG Chloride 102.0 mmol/L (98-107) 01/02/21 04:45 ABG Glucose 146 mg/dL (65-95) H 01/02/21 04:45 Oxyhemoglobin 82.8 % (95.0-99.0) L 01/01/21 04:50 Carboxyhemoglobin 2.3 (0.5-1.5) H 01/02/21 04:45 FiO2 80 % 01/01/21 04:50 FiO2 % 100 01/02/21 04:45 Sodium 144 mmol/L (137-145) 12/31/20 04:00 Potassium 3.8 mmol/L (3.6-5.0) 12/31/20 04:00 Chloride 103.5 mmol/L (98-107) 12/31/20 04:00 Carbon Dioxide 37 mmol/L (22-30) H 12/31/20 04:00 Anion Gap 7 mmol/L 12/31/20 04:00 BUN 16 mg/dL (9-20) 12/31/20 04:00 Creatinine 0.3 mg/dL (0.8-1.3) L 12/31/20 04:00 Estimated GFR > 60 ml/min 12/31/20 04:00 BUN/Creatinine Ratio 53 % 12/31/20 04:00 Glucose 152 mg/dL (75-100) H 12/31/20 04:00 POC Glucose 133 mg/dL (70-105) H 01/02/21 05:28 Hemoglobin A1c 11.7 % (4-6) H 11/16/20 05:29 Lactic Acid 2.60 mmol/L (0.7-2.0) H* 11/16/20 05:29 Calcium 7.3 mg/dL (8.4-10.2) L 12/31/20 04:00 Phosphorus 2.60 mg/dL (2.5-4.5) 12/17/20 17:25 Magnesium 1.60 mg/dL (1.7-2.3) L 12/17/20 17:25 Ferritin 778.8 ng/mL (30.0-300.0) H 11/26/20 04:00 Total Bilirubin 0.30 mg/dL (0.1-1.2) 12/31/20 04:00 AST 23 units/L (5-40) 12/31/20 04:00 ALT 23 units/L (7-56) 12/31/20 04:00 Alkaline Phosphatase 107 units/L (35-129) 12/31/20 04:00 Lactate Dehydrogenase 288 units/L (91-180) H 11/26/20 04:00 Total Creatine Kinase 47 units/L (55-170) L 12/17/20 17:25 CK-MB (CK-2) 1.8 ng/mL (0.0-4.0) 12/17/20 17:25 CK-MB (CK-2) Rel Index 3.8 (0-4) 12/17/20 17:25 Troponin T < 0.010 ng/mL (0.00-0.029) 12/11/20 06:30 C-Reactive Protein 1.40 mg/dL (0.00-1.30) H 11/26/20 04:00 NT-Pro-B Natriuret Pep 107.2 pg/mL (0-900) 11/17/20 10:21 Total Protein 6.1 g/dL (6.3-8.2) L 12/31/20 04:00 Albumin 1.4 g/dL (3.9-5) L 12/31/20 04:00 Albumin/Globulin Ratio 0.3 % 12/31/20 04:00 Triglycerides 718 mg/dL (2-149) H 01/02/21 Unknown Procalcitonin 0.16 ng/mL (<0.15) 12/12/20 05:16 Arterial Blood Glucose 146 mg/dL (65-95) H 01/02/21 04:45 Arterial Blood Ionized Calcium 4.4 mg/dL (4.6-5.3) L 01/02/21 04:45 Urine Color Yellow (Yellow) 12/21/20 Unknown Urine Turbidity Cloudy (Clear) 12/21/20 Unknown Urine pH 6.0 (5.0-7.0) 12/21/20 Unknown Ur Specific [place] 1.013 (1.003-1.030) 12/21/20 Unknown Urine Protein <15 mg/dl mg/dL (Negative) 12/21/20 Unknown Urine Glucose (UA) Neg mg/dL (Negative) 12/21/20 Unknown Urine Ketones Neg mg/dL (Negative) 12/21/20 Unknown Urine Blood Neg (Negative) 12/21/20 Unknown Urine Nitrite Neg (Negative) 12/21/20 Unknown Urine Bilirubin Neg (Negative) 12/21/20 Unknown Urine Urobilinogen < 2.0 mg/dL (<2.0) 12/21/20 Unknown Ur Leukocyte Esterase Mod (Negative) 12/21/20 Unknown Urine WBC (Auto) 172.0 /HPF (0.0-6.0) H 12/21/20 Unknown Urine RBC (Auto) > 182.0 /HPF (0.0-6.0) 12/21/20 Unknown U Epithel Cells (Auto) 3.0 /HPF (0-13.0) 12/21/20 Unknown Urine Bacteria (Auto) 2+ /HPF (Negative) 12/21/20 Unknown Ur Renal Epithelial Cell <1 /LPF 12/21/20 Unknown Urine Mucus 2+ /HPF 12/21/20 Unknown Urine Yeast (Budding) 3+ /HPF 12/21/20 Unknown Vancomycin Trough 16.9 ug/mL (5.0-20.0) 12/19/20 15:46 Coronavirus (PCR) Positive (Negative) A 12/13/20 10:00 Hepatitis A IgM Ab Non-reactive (NonReactive) 12/17/20 21:40 Hep Bs Antigen Non-reactive (Negative) 12/17/20 21:40 Hep B Core IgM Ab Non-reactive (NonReactive) 12/17/20 21:40 Hepatitis C Antibody Non-reactive (NonReactive) 12/17/20 21:40 HIV 1&2 Antibody Rapid Non react (Non React) 12/17/20 21:40 HIV P24 Antigen Non react (Non React) 12/17/20 21:40 - Diagnostic Impressions Diagnostic Impressions: Echocardiogram 11/16/20 10:34 Transthoracic Echocardiogram Indication: Shortness of breath-COVID BP: 108/77 HR: 92 Conclusions *Global left ventricular systolic function is normal. *The estimated ejection fraction is 60-65%. *Mild to moderate concentric left ventricular hypertrophy is observed. *There is trace of mitral regurgitation. *There is mild to moderate tricuspid regurgitation. *There is evidence of mild pulmonary hypertension. *The right ventricular systolic pressure is calculated at 31 mmHg. Findings Left Ventricle: The left ventricular chamber size is normal. Mild to moderate concentric left ventricular hypertrophy is observed. Global left ventricular systolic function is normal. The estimated ejection fraction is 60-65%. Left Atrium: The left atrial chamber size is normal. Right Ventricle: The right ventricular cavity size is normal. The right ventricular global systolic function is normal. Right Atrium: The right atrial cavity size is normal. Aortic Valve: The aortic valve is trileaflet. There is no evidence of aortic regurgitation. There is no evidence of aortic stenosis. Mitral Valve: The mitral valve leaflets appear normal. There is trace of mitral regurgitation. There is no evidence of mitral stenosis. Tricuspid Valve: The tricuspid valve leaflets are normal. There is mild to moderate tricuspid regurgitation. The right ventricular systolic pressure is calculated at 31 mmHg. There is evidence of mild pulmonary hypertension. Pulmonic Valve: There is trace pulmonic regurgitation. Pericardium: There is no pericardial effusion. Aorta: There is no dilatation of the ascending aorta. There is no dilatation of the aortic root. Venous: The inferior vena cava appears normal in size. Measurements Chambers 2D Name Value Normal Range IVSd (2D) 0.81 cm (0.6 - 1.1) LVPWd (2D) 0.79 cm (0.6 - 1.1) LVIDd (2D) 4.22 cm (3.7 - 5.6) LVIDs (2D) 3.1 cm (2 - 3.8) LV FS (2D) 26.71 % - EF Teichholz (2D) 52.55 % - Ao root diameter (2D) 3.34 cm (2 - 3.7) Volumes/Mass Name Value Normal Range LA ESV SP 4CH (A/L) 10.87 ml - LA ESV SP 2CH (A/L) 18.74 ml - LA ESV BP (A/L) 16.38 ml - LA ESV BP (A/L) index 8.62 ml/m2 - LA ESV SP 4CH (MOD) 10.32 ml - LA ESV SP 2CH (MOD) 17.66 ml - LA ESV BP (MOD) 15.12 ml - LA ESV BP (MOD) index 7.96 ml/m2 - Diastolic/Systolic Function Name Value Normal Range MV E-wave Vmax 0.76 m/sec - MV deceleration time 133.63 msec - MV A-wave Vmax 1.1 m/sec - MV E:A ratio 0.69 ratio - Aortic Valve Name Value Normal Range AV Vmax 1.44 m/sec - AV VTI 22.94 cm - AV peak gradient 8.33 mmHg - AV mean gradient 4.73 mmHg - LVOT diameter 2.2 cm - LVOT Vmax 1.04 m/sec - LVOT VTI 18.88 cm - LVOT peak gradient 4.34 mmHg - LVOT mean gradient 2.31 mmHg - SV LVOT 72.05 ml - EVANGELISTA (continuity Vmax) 2.75 cm2 - EVANGELISTA (continuity VTI) 3.14 cm2 - Tricuspid Valve Name Value Normal Range TR Vmax 2.64 m/sec - TR peak gradient 28 mmHg - RAP 3 mmHg - RVSP 31 mmHg - Gupta/IV: Voiding Method Indwelling Catheter IV Catheter Type [Left Peripheral IV Antecubital] Active Medications - Current Medications Current Medications: Generic Name Dose Route Start Last Admin Trade Name Freq PRN Reason Stop Dose Admin Acetaminophen 650 mg 11/15/20 23:55 01/02/21 01:22 Acetaminophen 325 Mg Tab PO 650 mg Q4H PRN Administration Pain MILD(1-3)/Fever >100.5/BUTTS Lipase/Protease/Amylase 1 each 11/23/20 11:53 12/05/20 23:45 Lipase 10,500/Protease 25,000/Amylase 43,750 (Units) Dr Slater FEEDTUBE 1 each PRN PRN Administration For Clogged Feeding Tube Dextrose 25 ml 12/10/20 05:21 12/28/20 12:18 Dextrose 50% In Water (25gm) 50 Ml Syringe IV 10 ml Q30MIN PRN Administration Hypoglycemia Protocol Docusate Sodium 100 mg 12/23/20 10:00 01/02/21 09:14 Docusate Sodium 100 Mg/10 Ml Oral Liqd PO 100 mg BID RAEANN Administration Enoxaparin Sodium 40 mg 12/03/20 22:00 01/01/21 21:45 Enoxaparin 40 Mg/0.4 Ml Inj SUB-Q 40 mg QDAY@2200 RAEANN Administration Famotidine 20 mg 12/16/20 10:00 01/02/21 09:14 Famotidine 20 Mg Tab PO 20 mg BID RAEANN Administration Hydrophilic Ointment 1 applic 11/21/20 21:53 11/30/20 21:33 Lip Therapy Vaseline TP 1 applic Q2HR PRN Administration Dry Lips Midazolam HCl 100 mg/ Sodium 100 mls @ 2 mls/hr 11/21/20 22:00 01/01/21 22:58 Chloride IV 5 mg/hr TITR RAEANN 5 mls/hr Administration Protocol 2 MG/HR Propofol 1,000 mg in 100 mls @ 2.175 mls/hr 11/27/20 12:00 01/02/21 09:14 Diprivan 10 Mg/Ml IV 20 mcg/kg/min TITR RAEANN 8.7 mls/hr Administration Protocol 5 MCG/KG/MIN Dexmedetomidine HCl 400 mcg/ 104 mls @ 4.441 mls/hr 12/10/20 13:00 01/02/21 09:15 Sodium Chloride IV 0.7 mcg/kg/hr TITRATE RAEANN 15.543 mls/hr Administration Protocol 0.2 MCG/KG/HR Fentanyl Citrate 2,000 mcg in 100 mls @ 3.9 mls/hr 12/18/20 19:00 01/02/21 05:41 Fentanyl Drip Premix IV 4 mcg/kg/hr TITR RAEANN 15.6 mls/hr Administration Protocol 1 MCG/KG/HR Vasopressin 20 unit/ Sodium 101 mls @ 9.09 mls/hr 12/24/20 18:30 Chloride IV TITR RAEANN Protocol 0.03 UNITS/MIN Norepinephrine 8 mg/ Sodium 250 mls @ 3.75 mls/hr 12/25/20 22:00 01/02/21 02:14 Chloride IV 16 mcg/min TITR RAEANN 30 mls/hr Titration Protocol 2 MCG/MIN Insulin Glargine 8 units 12/17/20 13:52 01/01/21 21:46 Insulin Glargine 100 Units/Ml SUB-Q 8 units QHS RAEANN Administration Insulin Human Lispro 0 unit 11/22/20 06:00 01/02/21 05:43 Insulin Lispro 100 Unit/Ml SUB-Q Not Given Q6HR [facility] Protocol Lorazepam 1 mg 01/02/21 01:05 Lorazepam 2 Mg/Ml Vial IV Q4H PRN Agitation Metoclopramide HCl 10 mg 11/15/20 23:55 Metoclopramide 10 Mg/2 Ml Inj IV Q6H PRN Nausea And Vomiting Multi-Ingred Cream/Lotion/Oil/Oint 1 applic 11/21/20 21:53 Mineral Oil/Petrolatum, White Ophth Oint 3.5 Gm OU Q4HR PRN Dry Eye(s) Ondansetron HCl 4 mg 11/15/20 23:55 Ondansetron 4 Mg/2 Ml Inj IV Q8H PRN Nausea And Vomiting Polyethylene Glycol 17 gm 12/23/20 10:00 01/02/21 09:14 Polyethylene Glycol 3350 17 Gm Powder PO 17 gm QDAY RAEANN Administration Senna/Docusate Sodium 2 tab 12/21/20 14:00 01/02/21 06:35 Sennosides/Docusate Sodium 8.6/50 Mg Tab PO 2 tab Q8HR RAEANN Administration Simple Syrup 15 ml 11/23/20 11:53 Simple Syrup 15 Ml FEEDTUBE PRN PRN Hypoglycemia Simple Syrup 30 ml 11/23/20 11:53 Simple Syrup 15 Ml FEEDTUBE PRN PRN Hypoglycemia Sodium Bicarbonate 325 mg 11/23/20 11:53 12/05/20 23:46 Sodium Bicarbonate 325 Mg Tab FEEDTUBE 325 mg PRN PRN Administration For Clogged Feeding Tube Sodium Chloride 10 ml 11/16/20 10:00 01/02/21 09:16 Sodium Chloride 0.9% 10 Ml Flush Syringe IV 10 ml BID RAEANN Administration Sodium Chloride 10 ml 11/15/20 23:55 12/03/20 00:21 Sodium Chloride 0.9% 10 Ml Flush Syringe IV 10 ml PRN PRN Administration LINE FLUSH Nutrition/Malnutrition Assess - Dietary Evaluation Nutrition/Malnutrition Findings: Nutrition Notes Start: 11/20/20 12:03 Freq: Status: Active Protocol: Document 01/01/21 12:52 AL (Rec: 01/01/21 12:59 AL [id number]) Co-Sign 01/01/21 12:52 LP Nutrition Notes Initial or Follow up Reassessment Current Diagnosis Diabetes,Sepsis,Respiratory Failure Other Pertinent Diagnosis Bilat pneu, COVID-19 (+) Current Diet Glucerna 1.2 at 65 ml/hr Labs/Tests Reviewed Pertinent Medications Propofol at 6.525 ml/hr (172 kcal) Lantus Colace Miralax Height 5 ft 6 in Weight 91.1 kg Usual Body Weight 80.5 kg [place] Body Weight (kg) 64.54 BMI 32.4 Weight change and time frame 3% wt gain (2.7 kig) noted. Pt has 3+ pitting edema Weight Status Obese Subjective/Other Information F/U for TF tolerance. Pt is tolerating TF at 65 ml/hr ( goal rate). Percent of energy/protein needs met: 100%/100% Burn Absent Trauma Absent GI Symptoms None Difficulty In Swallowing,Chewing Current % PO Negligible Minimum of two criteria Yes Interpretation of Weight Loss (severe) >2% in 1 week Fluid Accumulation Moderate to Severe (severe) #3 Nutrition Diagnosis Inadequate oral intake Diagnosis Progress(for reassessment Continues documentation) #2 Nutrition Diagnosis Malnutrition As Evidenced by Signs and Symptoms Pt meeting 100%/100% of estimated energy/protein needs via TF for >7 days Diagnosis Progress(for reassessment Improved documentation) #1 Nutrition Diagnosis Unintended weight loss Diagnosis Progress(for reassessment Continues documentation) Is patient on ventilator? Yes Is Patient Ambulatory and/or Out of Bed No REE-([facility]-confined to bed) 2006.072 Kcal/Kg value to use for calculation 22 Approximate Energy Requirements Using 2004 kcal/Kg Calculation [facility] Additional Notes Protein: 87-145 g/day (1.2-2g/ kg) Fluid: 1ml/kcal or per MD Nutrition Intervention Change Diet Order: Continue TF Nutrition Support: Glucerna 1.2 at 65 ml/hr. Flush 125 ml q4h Kcal 1,872 Protein (gm) 93 Fluid (mL) 1,255 Goal #1 Meet at least 75% of energy and protein needs via TF Goal #2 TF tolerance Anticipated Discharge Needs: Unable to determine at this time Follow-Up By: 01/08/21 Additional Comments F/U for TF tolerance.
[2021-01-02] MEDS: MIDAZOLAM 100 MG in SODIUM CHLORIDE 0.9% 80 ML IV SCH (13:43)
[2021-01-02] MEDS: ENOXAPARIN 40 MG/0.4 ML INJ SUB-Q SCH (21:38)
[2021-01-02] MEDS: INSULIN GLARGINE 100 UNITS/ML SUB-Q SCH (21:38)
[2021-01-03] MEDS: INSULIN LISPRO 100 UNIT/ML SUB-Q SCH ×4 (00:06→18:34)
[2021-01-03] MEDS: fentaNYL DRIP Premix 2,000 MCG/100 ML BAG IV SCH ×4 (00:06→18:33)
[2021-01-03] MEDS: SENNOSIDES/DOCUSATE SODIUM 8.6/50 MG TAB PO SCH ×3 (05:21→21:17)
[2021-01-03] MEDS: NORepinephrine 8 MG in SODIUM CHLORIDE 0.9% 250ML 242 ML IV SCH ×2 (06:06→17:15)
[2021-01-03 08:23] LABS: Blood Urea Nitrogen 24 mg/dL (9-20); Calcium 6.8 mg/dL (8.4-10.2); Hemolysis Index 18
[2021-01-03 08:24] LABS: BUN/Creatinine Ratio 60
[2021-01-03 08:56] LABS: Hematocrit 21.9 % (35.5-45.6); Hemoglobin 6.9 gm/dl (11.8-15.2); Mean Corpuscular HGB Conc 32 % (32-34); Mean Corpuscular Volume 94 fl (84-94); Platelet Count 364 K/mm3 (140-440); Red Blood Count 2.34 M/mm3 (3.65-5.03); Red Cell Distribution Width 19.3 % (13.2-15.2)
[2021-01-03] MEDS: DOCUSATE SODIUM 100 MG/10 ML ORAL LIQD PO SCH ×2 (09:18→21:16)
[2021-01-03] MEDS: FAMOTIDINE 20 MG TAB PO SCH ×2 (09:18→21:17)
[2021-01-03] MEDS: LIPASE 10,500/PROTEASE 25,000/AMYLASE 43,750 (UNITS) DR CAP FEEDTUBE PRN (09:18)
[2021-01-03] MEDS: POLYETHYLENE GLYCOL 3350 17 GM POWDER PO SCH (09:18)
[2021-01-03] MEDS: SODIUM BICARBONATE 325 MG TAB FEEDTUBE PRN (09:18)
[2021-01-03] MEDS: MIDAZOLAM 100 MG in SODIUM CHLORIDE 0.9% 80 ML IV SCH (09:19)
--- NOTE | 2021-01-03 09:48 | Progress Note ---
Assessment and Plan - Patient Problems (1) COVID-19 Current Visit: Yes Status: Acute (2) Acute respiratory failure with hypoxia Current Visit: Yes Status: Acute (3) Bilateral pneumonia Current Visit: Yes Status: Acute Qualifiers: Pneumonia type: due to unspecified organism Lung location: unspecified part of lung Qualified Code(s): J18.9 - Pneumonia, unspecified organism (4) Hyponatremia Current Visit: Yes Status: Acute (5) Hypoxia Current Visit: Yes Status: Acute (6) Pneumothorax Current Visit: Yes Status: Acute (7) Sepsis Current Visit: Yes Status: Acute Subjective Principal diagnosis: COVID-19 Interval history: on vent no change still on 100% and peep [address] Objective Vital Signs - 12hr 01/02/21 01/02/21 01/02/21 22:00 22:15 22:30 Temperature Pulse Rate 143 H 133 H 129 H Respiratory 18 15 16 Rate Blood Pressure 134/83 140/74 124/67 O2 Sat by Pulse 84 82 L 83 L Oximetry 01/02/21 01/02/21 01/02/21 22:36 23:00 23:30 Temperature Pulse Rate 134 H 130 H 123 H Respiratory 15 30 H 22 Rate Blood Pressure 124/67 122/65 120/68 O2 Sat by Pulse 83 L 83 L 75 L Oximetry 01/02/21 01/03/21 01/03/21 23:43 00:00 00:30 Temperature 99.9 F H Pulse Rate 124 H 122 H Respiratory 21 20 Rate Blood Pressure 110/66 117/63 O2 Sat by Pulse 87 85 Oximetry 01/03/21 01/03/21 01/03/21 00:53 01:00 01:30 Temperature Pulse Rate 137 H 118 H 120 H Respiratory 20 18 Rate Blood Pressure 111/60 118/63 O2 Sat by Pulse 85 86 Oximetry 01/03/21 01/03/21 01/03/21 02:00 02:30 03:00 Temperature Pulse Rate 121 H 122 H 123 H Respiratory 24 26 H 27 H Rate Blood Pressure 114/62 118/65 120/66 O2 Sat by Pulse 86 86 86 Oximetry 01/03/21 01/03/21 01/03/21 03:30 03:52 04:00 Temperature 99.9 F H Pulse Rate 117 H 124 H 117 H Respiratory 23 31 H Rate Blood Pressure 120/65 121/62 117/65 O2 Sat by Pulse 85 85 86 Oximetry 01/03/21 01/03/21 01/03/21 04:30 05:00 05:30 Temperature Pulse Rate 115 H 111 H 121 H Respiratory 22 30 H 29 H Rate Blood Pressure 113/62 116/64 120/61 O2 Sat by Pulse 87 86 77 L Oximetry 01/03/21 01/03/21 01/03/21 06:00 06:30 07:00 Temperature Pulse Rate 112 H 109 H 112 H Respiratory 30 H 30 H 30 H Rate Blood Pressure 111/64 116/63 121/68 O2 Sat by Pulse 88 88 88 Oximetry 01/03/21 01/03/21 01/03/21 07:25 07:30 08:00 Temperature 100.0 F H Pulse Rate 120 H 117 H Respiratory 30 H 30 H Rate Blood Pressure 129/75 126/70 O2 Sat by Pulse 89 89 Oximetry 01/03/21 08:58 Temperature Pulse Rate 117 H Respiratory Rate Blood Pressure 124/69 O2 Sat by Pulse 88 Oximetry Constitutional: lethargic, comatose, other (on vent orally intubated) ENT: other (Now intubated) Effort: other (vent support ) Ascultation: Bilateral: diminished breath sounds, other (coarse BS bilaterally) Percussion: Bilateral: not dull Cardiovascular: regular rate and rhythm (tachy ) Gastrointestinal: soft, non-tender, non-distended Integumentary: normal Extremities: no cyanosis, no edema, pink and warm Neurologic: other (sedated) Psychiatric: other (sedated) CBC and BMP: 01/03/21 06:00 01/03/21 Unknown ABG, PT/INR, D-dimer: ABG ABG pH 7.341 (7.320-7.450) 01/03/21 03:51 POC ABG pCO2 73.4 mmHg (32.0-48.0) H 01/03/21 03:51 ABG pCO2 86.9 mm Hg 01/01/21 04:50 POC ABG pO2 44.7 mmHg (83-108) L 01/03/21 03:51 ABG pO2 56.9 mm Hg (80.0-90.0) L 01/01/21 04:50 POC ABG HCO3 38.8 01/03/21 03:51 ABG O2 Saturation 82.5 (0-100) 01/03/21 03:51 PT/INR, D-dimer D-Dimer 926.11 ng/mlDDU (0-234) H 11/26/20 06:04 Abnormal lab findings: Abnormal Labs 11/15/20 11/15/20 11/15/20 10:39 10:39 10:39 WBC 14.3 H RBC 5.17 H Hgb Hct MCHC RDW Plt Count Lymph % (Auto) 7.8 L [place] % (Auto) 7.6 H Lymph # (Auto) 1.1 L [place] # (Auto) 1.1 H Baso # (Auto) Seg Neutrophils % 83.3 H Seg Neuts % (Manual) Lymphocytes % (Manual) Nucleated RBC % Seg Neutrophils # 11.9 H Seg Neutrophils # Man Lymphocytes # (Manual) D-Dimer ABG pH POC ABG pCO2 POC ABG pO2 ABG pO2 ABG HCO3 ABG O2 Saturation ABG Base Excess ABG Hemoglobin ABG Oxyhemoglobin ABG Sodium ABG Potassium ABG Chloride ABG Glucose Oxyhemoglobin Carboxyhemoglobin Sodium 128 L Potassium Chloride 96.0 L Carbon Dioxide BUN Creatinine 0.7 L Glucose 238 H POC Glucose Hemoglobin A1c Lactic Acid 4.10 H* Calcium 7.0 L Magnesium Ferritin Total Bilirubin 1.40 H AST 49 H ALT 70 H Alkaline Phosphatase Lactate Dehydrogenase 663 H Total Creatine Kinase C-Reactive Protein 19.80 H Total Protein Albumin 2.9 L Triglycerides Arterial Blood Glucose Arterial Blood Ionized Calcium Ur Specific [place] Urine WBC (Auto) Vancomycin Trough Coronavirus (PCR) 11/15/20 11/15/20 11/15/20 10:39 10:39 11:20 WBC RBC Hgb Hct MCHC RDW Plt Count Lymph % (Auto) [place] % (Auto) Lymph # (Auto) [place] # (Auto) Baso # (Auto) Seg Neutrophils % Seg Neuts % (Manual) Lymphocytes % (Manual) Nucleated RBC % Seg Neutrophils # Seg Neutrophils # Man Lymphocytes # (Manual) D-Dimer > 40332 H ABG pH POC ABG pCO2 29.9 L POC ABG pO2 137.3 H ABG pO2 ABG HCO3 ABG O2 Saturation ABG Base Excess ABG Hemoglobin ABG Oxyhemoglobin ABG Sodium 126.5 L ABG Potassium ABG Chloride ABG Glucose 248 H Oxyhemoglobin Carboxyhemoglobin Sodium Potassium Chloride Carbon Dioxide BUN Creatinine Glucose POC Glucose Hemoglobin A1c Lactic Acid Calcium Magnesium Ferritin 672.8 H Total Bilirubin AST ALT Alkaline Phosphatase Lactate Dehydrogenase Total Creatine Kinase C-Reactive Protein Total Protein Albumin Triglycerides Arterial Blood Glucose 248 H Arterial Blood Ionized Calcium 4.1 L Ur Specific [place] Urine WBC (Auto) Vancomycin Trough Coronavirus (PCR) 11/15/20 11/15/20 11/16/20 13:41 23:41 01:45 WBC RBC Hgb Hct MCHC RDW Plt Count Lymph % (Auto) [place] % (Auto) Lymph # (Auto) [place] # (Auto) Baso # (Auto) Seg Neutrophils % Seg Neuts % (Manual) Lymphocytes % (Manual) Nucleated RBC % Seg Neutrophils # Seg Neutrophils # Man Lymphocytes # (Manual) D-Dimer ABG pH POC ABG pCO2 POC ABG pO2 ABG pO2 ABG HCO3 ABG O2 Saturation ABG Base Excess ABG Hemoglobin ABG Oxyhemoglobin ABG Sodium ABG Potassium ABG Chloride ABG Glucose Oxyhemoglobin Carboxyhemoglobin Sodium Potassium Chloride Carbon Dioxide BUN Creatinine Glucose POC Glucose 284 H Hemoglobin A1c Lactic Acid 2.30 H* Calcium Magnesium Ferritin Total Bilirubin AST ALT Alkaline Phosphatase Lactate Dehydrogenase Total Creatine Kinase C-Reactive Protein Total Protein Albumin Triglycerides Arterial Blood Glucose Arterial Blood Ionized Calcium Ur Specific [place] 1.037 H Urine WBC (Auto) Vancomycin Trough Coronavirus (PCR) 11/16/20 11/16/20 11/16/20 05:29 05:29 05:29 WBC 12.9 H RBC Hgb Hct MCHC RDW Plt Count Lymph % (Auto) 4.5 L [place] % (Auto) Lymph # (Auto) 0.6 L [place] # (Auto) Baso # (Auto) 0.2 H Seg Neutrophils % 89.8 H Seg Neuts % (Manual) Lymphocytes % (Manual) Nucleated RBC % Seg Neutrophils # 11.5 H Seg Neutrophils # Man Lymphocytes # (Manual) D-Dimer ABG pH POC ABG pCO2 POC ABG pO2 ABG pO2 ABG HCO3 ABG O2 Saturation ABG Base Excess ABG Hemoglobin ABG Oxyhemoglobin ABG Sodium ABG Potassium ABG Chloride ABG Glucose Oxyhemoglobin Carboxyhemoglobin Sodium 131 L Potassium Chloride Carbon Dioxide 21 L BUN 23 H Creatinine 0.6 L Glucose 342 H POC Glucose Hemoglobin A1c Lactic Acid 2.60 H* Calcium 7.0 L Magnesium Ferritin Total Bilirubin AST ALT Alkaline Phosphatase Lactate Dehydrogenase Total Creatine Kinase C-Reactive Protein Total Protein Albumin 2.4 L Triglycerides Arterial Blood Glucose Arterial Blood Ionized Calcium Ur Specific [place] Urine WBC (Auto) Vancomycin Trough Coronavirus (PCR) 11/16/20 11/16/20 11/16/20 05:29 08:11 12:11 WBC RBC Hgb Hct MCHC RDW Plt Count Lymph % (Auto) [place] % (Auto) Lymph # (Auto) [place] # (Auto) Baso # (Auto) Seg Neutrophils % Seg Neuts % (Manual) Lymphocytes % (Manual) Nucleated RBC % Seg Neutrophils # Seg Neutrophils # Man Lymphocytes # (Manual) D-Dimer ABG pH POC ABG pCO2 POC ABG pO2 ABG pO2 ABG HCO3 ABG O2 Saturation ABG Base Excess ABG Hemoglobin ABG Oxyhemoglobin ABG Sodium ABG Potassium ABG Chloride ABG Glucose Oxyhemoglobin Carboxyhemoglobin Sodium Potassium Chloride Carbon Dioxide BUN Creatinine Glucose POC Glucose 329 H 320 H Hemoglobin A1c 11.7 H Lactic Acid Calcium Magnesium Ferritin Total Bilirubin AST ALT Alkaline Phosphatase Lactate Dehydrogenase Total Creatine Kinase C-Reactive Protein Total Protein Albumin Triglycerides Arterial Blood Glucose Arterial Blood Ionized Calcium Ur Specific [place] Urine WBC (Auto) Vancomycin Trough Coronavirus (PCR) 11/16/20 11/16/20 11/16/20 16:13 21:29 Unknown WBC RBC Hgb Hct MCHC RDW Plt Count Lymph % (Auto) [place] % (Auto) Lymph # (Auto) [place] # (Auto) Baso # (Auto) Seg Neutrophils % Seg Neuts % (Manual) Lymphocytes % (Manual) Nucleated RBC % Seg Neutrophils # Seg Neutrophils # Man Lymphocytes # (Manual) D-Dimer ABG pH POC ABG pCO2 POC ABG pO2 ABG pO2 ABG HCO3 ABG O2 Saturation ABG Base Excess ABG Hemoglobin ABG Oxyhemoglobin ABG Sodium ABG Potassium ABG Chloride ABG Glucose Oxyhemoglobin Carboxyhemoglobin Sodium Potassium Chloride Carbon Dioxide BUN Creatinine Glucose POC Glucose 257 H 376 H Hemoglobin A1c Lactic Acid Calcium Magnesium Ferritin Total Bilirubin AST ALT Alkaline Phosphatase Lactate Dehydrogenase Total Creatine Kinase C-Reactive Protein Total Protein Albumin Triglycerides Arterial Blood Glucose Arterial Blood Ionized Calcium Ur Specific [place] Urine WBC (Auto) Vancomycin Trough Coronavirus (PCR) Positive A 11/17/20 11/17/20 11/17/20 07:42 12:07 17:25 WBC RBC Hgb Hct MCHC RDW Plt Count Lymph % (Auto) [place] % (Auto) Lymph # (Auto) [place] # (Auto) Baso # (Auto) Seg Neutrophils % Seg Neuts % (Manual) Lymphocytes % (Manual) Nucleated RBC % Seg Neutrophils # Seg Neutrophils # Man Lymphocytes # (Manual) D-Dimer ABG pH POC ABG pCO2 POC ABG pO2 ABG pO2 ABG HCO3 ABG O2 Saturation ABG Base Excess ABG Hemoglobin ABG Oxyhemoglobin ABG Sodium ABG Potassium ABG Chloride ABG Glucose Oxyhemoglobin Carboxyhemoglobin Sodium Potassium Chloride Carbon Dioxide BUN Creatinine Glucose POC Glucose 231 H 380 H 302 H Hemoglobin A1c Lactic Acid Calcium Magnesium Ferritin Total Bilirubin AST ALT Alkaline Phosphatase Lactate Dehydrogenase Total Creatine Kinase C-Reactive Protein Total Protein Albumin Triglycerides Arterial Blood Glucose Arterial Blood Ionized Calcium Ur Specific [place] Urine WBC (Auto) Vancomycin Trough Coronavirus (PCR) 11/17/20 11/18/20 11/18/20 21:53 04:25 07:45 WBC RBC Hgb Hct MCHC RDW Plt Count Lymph % (Auto) [place] % (Auto) Lymph # (Auto) [place] # (Auto) Baso # (Auto) Seg Neutrophils % Seg Neuts % (Manual) Lymphocytes % (Manual) Nucleated RBC % Seg Neutrophils # Seg Neutrophils # Man Lymphocytes # (Manual) D-Dimer ABG pH POC ABG pCO2 POC ABG pO2 ABG pO2 ABG HCO3 ABG O2 Saturation ABG Base Excess ABG Hemoglobin ABG Oxyhemoglobin ABG Sodium ABG Potassium ABG Chloride ABG Glucose Oxyhemoglobin Carboxyhemoglobin Sodium 136 L Potassium Chloride Carbon Dioxide BUN 24 H Creatinine 0.6 L Glucose 212 H POC Glucose 293 H 216 H Hemoglobin A1c Lactic Acid Calcium 7.4 L Magnesium Ferritin Total Bilirubin AST 41 H ALT Alkaline Phosphatase 142 H Lactate Dehydrogenase Total Creatine Kinase C-Reactive Protein Total Protein Albumin 2.3 L Triglycerides Arterial Blood Glucose Arterial Blood Ionized Calcium Ur Specific [place] Urine WBC (Auto) Vancomycin Trough Coronavirus (PCR) 11/18/20 11/18/20 11/18/20 12:28 15:58 21:37 WBC RBC Hgb Hct MCHC RDW Plt Count Lymph % (Auto) [place] % (Auto) Lymph # (Auto) [place] # (Auto) Baso # (Auto) Seg Neutrophils % Seg Neuts % (Manual) Lymphocytes % (Manual) Nucleated RBC % Seg Neutrophils # Seg Neutrophils # Man Lymphocytes # (Manual) D-Dimer ABG pH POC ABG pCO2 POC ABG pO2 ABG pO2 ABG HCO3 ABG O2 Saturation ABG Base Excess ABG Hemoglobin ABG Oxyhemoglobin ABG Sodium ABG Potassium ABG Chloride ABG Glucose Oxyhemoglobin Carboxyhemoglobin Sodium Potassium Chloride Carbon Dioxide BUN Creatinine Glucose POC Glucose 165 H 220 H 311 H Hemoglobin A1c Lactic Acid Calcium Magnesium Ferritin Total Bilirubin AST ALT Alkaline Phosphatase Lactate Dehydrogenase Total Creatine Kinase C-Reactive Protein Total Protein Albumin Triglycerides Arterial Blood Glucose Arterial Blood Ionized Calcium Ur Specific [place] Urine WBC (Auto) Vancomycin Trough Coronavirus (PCR) 11/19/20 11/19/20 11/19/20 05:35 07:40 12:39 WBC RBC Hgb Hct MCHC RDW Plt Count Lymph % (Auto) [place] % (Auto) Lymph # (Auto) [place] # (Auto) Baso # (Auto) Seg Neutrophils % Seg Neuts % (Manual) Lymphocytes % (Manual) Nucleated RBC % Seg Neutrophils # Seg Neutrophils # Man Lymphocytes # (Manual) D-Dimer ABG pH POC ABG pCO2 POC ABG pO2 ABG pO2 ABG HCO3 ABG O2 Saturation ABG Base Excess ABG Hemoglobin ABG Oxyhemoglobin ABG Sodium ABG Potassium ABG Chloride ABG Glucose Oxyhemoglobin Carboxyhemoglobin Sodium 132 L Potassium Chloride Carbon Dioxide BUN 25 H Creatinine 0.5 L Glucose 179 H POC Glucose 149 H 306 H Hemoglobin A1c Lactic Acid Calcium 7.5 L Magnesium Ferritin Total Bilirubin AST ALT Alkaline Phosphatase 139 H Lactate Dehydrogenase Total Creatine Kinase C-Reactive Protein Total Protein Albumin 2.4 L Triglycerides Arterial Blood Glucose Arterial Blood Ionized Calcium Ur Specific [place] Urine WBC (Auto) Vancomycin Trough Coronavirus (PCR) 11/19/20 11/19/20 11/20/20 16:17 21:25 08:30 WBC RBC Hgb Hct MCHC RDW Plt Count Lymph % (Auto) [place] % (Auto) Lymph # (Auto) [place] # (Auto) Baso # (Auto) Seg Neutrophils % Seg Neuts % (Manual) Lymphocytes % (Manual) Nucleated RBC % Seg Neutrophils # Seg Neutrophils # Man Lymphocytes # (Manual) D-Dimer ABG pH POC ABG pCO2 POC ABG pO2 ABG pO2 ABG HCO3 ABG O2 Saturation ABG Base Excess ABG Hemoglobin ABG Oxyhemoglobin ABG Sodium ABG Potassium ABG Chloride ABG Glucose Oxyhemoglobin Carboxyhemoglobin Sodium Potassium Chloride Carbon Dioxide BUN Creatinine Glucose POC Glucose 364 H 347 H 141 H Hemoglobin A1c Lactic Acid Calcium Magnesium Ferritin Total Bilirubin AST ALT Alkaline Phosphatase Lactate Dehydrogenase Total Creatine Kinase C-Reactive Protein Total Protein Albumin Triglycerides Arterial Blood Glucose Arterial Blood Ionized Calcium Ur Specific [place] Urine WBC (Auto) Vancomycin Trough Coronavirus (PCR) 11/20/20 11/20/20 11/20/20 08:50 11:32 16:19 WBC RBC Hgb Hct MCHC RDW Plt Count Lymph % (Auto) [place] % (Auto) Lymph # (Auto) [place] # (Auto) Baso # (Auto) Seg Neutrophils % Seg Neuts % (Manual) Lymphocytes % (Manual) Nucleated RBC % Seg Neutrophils # Seg Neutrophils # Man Lymphocytes # (Manual) D-Dimer ABG pH POC ABG pCO2 POC ABG pO2 ABG pO2 ABG HCO3 ABG O2 Saturation ABG Base Excess ABG Hemoglobin ABG Oxyhemoglobin ABG Sodium ABG Potassium ABG Chloride ABG Glucose Oxyhemoglobin Carboxyhemoglobin Sodium 132 L Potassium Chloride 97.6 L Carbon Dioxide BUN 26 H Creatinine 0.5 L Glucose 201 H POC Glucose 296 H 327 H Hemoglobin A1c Lactic Acid Calcium 7.9 L Magnesium Ferritin Total Bilirubin AST ALT Alkaline Phosphatase 137 H Lactate Dehydrogenase Total Creatine Kinase C-Reactive Protein Total Protein Albumin 2.6 L Triglycerides Arterial Blood Glucose Arterial Blood Ionized Calcium Ur Specific [place] Urine WBC (Auto) Vancomycin Trough Coronavirus (PCR) 11/20/20 11/21/20 11/21/20 22:09 07:59 13:51 WBC RBC Hgb Hct MCHC RDW Plt Count Lymph % (Auto) [place] % (Auto) Lymph # (Auto) [place] # (Auto) Baso # (Auto) Seg Neutrophils % Seg Neuts % (Manual) Lymphocytes % (Manual) Nucleated RBC % Seg Neutrophils # Seg Neutrophils # Man Lymphocytes # (Manual) D-Dimer ABG pH POC ABG pCO2 POC ABG pO2 ABG pO2 ABG HCO3 ABG O2 Saturation ABG Base Excess ABG Hemoglobin ABG Oxyhemoglobin ABG Sodium ABG Potassium ABG Chloride ABG Glucose Oxyhemoglobin Carboxyhemoglobin Sodium Potassium Chloride Carbon Dioxide BUN Creatinine Glucose POC Glucose 311 H 218 H 304 H Hemoglobin A1c Lactic Acid Calcium Magnesium Ferritin Total Bilirubin AST ALT Alkaline Phosphatase Lactate Dehydrogenase Total Creatine Kinase C-Reactive Protein Total Protein Albumin Triglycerides Arterial Blood Glucose Arterial Blood Ionized Calcium Ur Specific [place] Urine WBC (Auto) Vancomycin Trough Coronavirus (PCR) 11/21/20 11/21/20 11/21/20 16:09 21:34 23:00 WBC RBC Hgb Hct MCHC RDW Plt Count Lymph % (Auto) [place] % (Auto) Lymph # (Auto) [place] # (Auto) Baso # (Auto) Seg Neutrophils % Seg Neuts % (Manual) Lymphocytes % (Manual) Nucleated RBC % Seg Neutrophils # Seg Neutrophils # Man Lymphocytes # (Manual) D-Dimer ABG pH 7.206 L POC ABG pCO2 59.3 H POC ABG pO2 76.7 L ABG pO2 ABG HCO3 ABG O2 Saturation ABG Base Excess ABG Hemoglobin ABG Oxyhemoglobin ABG Sodium 133.1 L ABG Potassium ABG Chloride ABG Glucose 320 H Oxyhemoglobin Carboxyhemoglobin Sodium Potassium Chloride Carbon Dioxide BUN Creatinine Glucose POC Glucose 239 H 279 H Hemoglobin A1c Lactic Acid Calcium Magnesium Ferritin Total Bilirubin AST ALT Alkaline Phosphatase Lactate Dehydrogenase Total Creatine Kinase C-Reactive Protein Total Protein Albumin Triglycerides Arterial Blood Glucose 320 H Arterial Blood Ionized Calcium Ur Specific [place] Urine WBC (Auto) Vancomycin Trough Coronavirus (PCR) 11/22/20 11/22/20 11/22/20 04:52 04:52 04:52 WBC RBC Hgb Hct MCHC RDW Plt Count Lymph % (Auto) [place] % (Auto) Lymph # (Auto) [place] # (Auto) Baso # (Auto) Seg Neutrophils % Seg Neuts % (Manual) Lymphocytes % (Manual) Nucleated RBC % Seg Neutrophils # Seg Neutrophils # Man Lymphocytes # (Manual) D-Dimer 1858.36 H ABG pH POC ABG pCO2 POC ABG pO2 ABG pO2 ABG HCO3 ABG O2 Saturation ABG Base Excess ABG Hemoglobin ABG Oxyhemoglobin ABG Sodium ABG Potassium ABG Chloride ABG Glucose Oxyhemoglobin Carboxyhemoglobin Sodium Potassium Chloride Carbon Dioxide BUN Creatinine Glucose POC Glucose Hemoglobin A1c Lactic Acid Calcium Magnesium Ferritin 734.2 H Total Bilirubin AST ALT Alkaline Phosphatase Lactate Dehydrogenase 404 H Total Creatine Kinase C-Reactive Protein 2.80 H Total Protein Albumin Triglycerides Arterial Blood Glucose Arterial Blood Ionized Calcium Ur Specific [place] Urine WBC (Auto) Vancomycin Trough Coronavirus (PCR) 11/22/20 11/22/20 11/22/20 05:12 05:39 11:50 WBC RBC Hgb Hct MCHC RDW Plt Count Lymph % (Auto) [place] % (Auto) Lymph # (Auto) [place] # (Auto) Baso # (Auto) Seg Neutrophils % Seg Neuts % (Manual) Lymphocytes % (Manual) Nucleated RBC % Seg Neutrophils # Seg Neutrophils # Man Lymphocytes # (Manual) D-Dimer ABG pH POC ABG pCO2 POC ABG pO2 51.0 L ABG pO2 ABG HCO3 ABG O2 Saturation ABG Base Excess ABG Hemoglobin ABG Oxyhemoglobin ABG Sodium 131.2 L ABG Potassium 4.6 H ABG Chloride ABG Glucose 317 H Oxyhemoglobin Carboxyhemoglobin Sodium Potassium Chloride Carbon Dioxide BUN Creatinine Glucose POC Glucose 340 H 417 H Hemoglobin A1c Lactic Acid Calcium Magnesium Ferritin Total Bilirubin AST ALT Alkaline Phosphatase Lactate Dehydrogenase Total Creatine Kinase C-Reactive Protein Total Protein Albumin Triglycerides Arterial Blood Glucose 317 H Arterial Blood Ionized Calcium 4.4 L Ur Specific [place] Urine WBC (Auto) Vancomycin Trough Coronavirus (PCR) 11/22/20 11/22/20 11/22/20 12:22 12:22 17:10 WBC 14.4 H RBC Hgb Hct MCHC RDW Plt Count Lymph % (Auto) [place] % (Auto) Lymph # (Auto) [place] # (Auto) Baso # (Auto) Seg Neutrophils % Seg Neuts % (Manual) 98.0 H Lymphocytes % (Manual) Nucleated RBC % Seg Neutrophils # Seg Neutrophils # Man 14.1 H Lymphocytes # (Manual) 0.0 L D-Dimer ABG pH POC ABG pCO2 POC ABG pO2 ABG pO2 ABG HCO3 ABG O2 Saturation ABG Base Excess ABG Hemoglobin ABG Oxyhemoglobin ABG Sodium ABG Potassium ABG Chloride ABG Glucose Oxyhemoglobin Carboxyhemoglobin Sodium 132 L Potassium Chloride Carbon Dioxide BUN 36 H Creatinine 0.6 L Glucose 219 H POC Glucose 157 H Hemoglobin A1c Lactic Acid Calcium 7.2 L Magnesium Ferritin Total Bilirubin AST ALT Alkaline Phosphatase Lactate Dehydrogenase Total Creatine Kinase C-Reactive Protein Total Protein Albumin Triglycerides Arterial Blood Glucose Arterial Blood Ionized Calcium Ur Specific [place] Urine WBC (Auto) Vancomycin Trough Coronavirus (PCR) 11/22/20 11/22/20 11/22/20 18:33 21:44 23:47 WBC RBC Hgb Hct MCHC RDW Plt Count Lymph % (Auto) [place] % (Auto) Lymph # (Auto) [place] # (Auto) Baso # (Auto) Seg Neutrophils % Seg Neuts % (Manual) Lymphocytes % (Manual) Nucleated RBC % Seg Neutrophils # Seg Neutrophils # Man Lymphocytes # (Manual) D-Dimer ABG pH POC ABG pCO2 POC ABG pO2 60.8 L ABG pO2 ABG HCO3 ABG O2 Saturation ABG Base Excess ABG Hemoglobin ABG Oxyhemoglobin 88.1 L ABG Sodium 135.1 L ABG Potassium ABG Chloride ABG Glucose 141 H Oxyhemoglobin Carboxyhemoglobin Sodium Potassium Chloride Carbon Dioxide BUN Creatinine Glucose POC Glucose 117 H 123 H Hemoglobin A1c Lactic Acid Calcium Magnesium Ferritin Total Bilirubin AST ALT Alkaline Phosphatase Lactate Dehydrogenase Total Creatine Kinase C-Reactive Protein Total Protein Albumin Triglycerides Arterial Blood Glucose 141 H Arterial Blood Ionized Calcium Ur Specific [place] Urine WBC (Auto) Vancomycin Trough Coronavirus (PCR) 11/23/20 11/23/20 11/23/20 04:00 04:00 05:23 WBC 14.4 H RBC Hgb Hct MCHC RDW Plt Count Lymph % (Auto) [place] % (Auto) Lymph # (Auto) [place] # (Auto) Baso # (Auto) Seg Neutrophils % Seg Neuts % (Manual) Lymphocytes % (Manual) Nucleated RBC % Seg Neutrophils # Seg Neutrophils # Man Lymphocytes # (Manual) D-Dimer ABG pH POC ABG pCO2 POC ABG pO2 ABG pO2 ABG HCO3 ABG O2 Saturation ABG Base Excess ABG Hemoglobin ABG Oxyhemoglobin ABG Sodium ABG Potassium ABG Chloride ABG Glucose Oxyhemoglobin Carboxyhemoglobin Sodium 136 L Potassium Chloride Carbon Dioxide BUN 33 H Creatinine 0.6 L Glucose 115 H POC Glucose 173 H Hemoglobin A1c Lactic Acid Calcium 7.1 L Magnesium Ferritin Total Bilirubin AST 64 H ALT 75 H Alkaline Phosphatase Lactate Dehydrogenase Total Creatine Kinase C-Reactive Protein Total Protein 5.9 L D Albumin 2.4 L Triglycerides Arterial Blood Glucose Arterial Blood Ionized Calcium Ur Specific [place] Urine WBC (Auto) Vancomycin Trough Coronavirus (PCR) 11/23/20 11/23/20 11/23/20 05:40 11:27 17:10 WBC RBC Hgb Hct MCHC RDW Plt Count Lymph % (Auto) [place] % (Auto) Lymph # (Auto) [place] # (Auto) Baso # (Auto) Seg Neutrophils % Seg Neuts % (Manual) Lymphocytes % (Manual) Nucleated RBC % Seg Neutrophils # Seg Neutrophils # Man Lymphocytes # (Manual) D-Dimer ABG pH POC ABG pCO2 POC ABG pO2 56.5 L ABG pO2 ABG HCO3 ABG O2 Saturation ABG Base Excess ABG Hemoglobin ABG Oxyhemoglobin ABG Sodium ABG Potassium ABG Chloride 109.0 H ABG Glucose 114 H Oxyhemoglobin Carboxyhemoglobin Sodium Potassium Chloride Carbon Dioxide BUN Creatinine Glucose POC Glucose 114 H 136 H Hemoglobin A1c Lactic Acid Calcium Magnesium Ferritin Total Bilirubin AST ALT Alkaline Phosphatase Lactate Dehydrogenase Total Creatine Kinase C-Reactive Protein Total Protein Albumin Triglycerides Arterial Blood Glucose 114 H Arterial Blood Ionized Calcium 4.5 L Ur Specific [place] Urine WBC (Auto) Vancomycin Trough Coronavirus (PCR) 11/24/20 11/24/20 11/24/20 05:14 05:14 05:14 WBC RBC Hgb Hct MCHC RDW Plt Count Lymph % (Auto) [place] % (Auto) Lymph # (Auto) [place] # (Auto) Baso # (Auto) Seg Neutrophils % Seg Neuts % (Manual) Lymphocytes % (Manual) Nucleated RBC % Seg Neutrophils # Seg Neutrophils # Man Lymphocytes # (Manual) D-Dimer 1433.39 H ABG pH POC ABG pCO2 POC ABG pO2 ABG pO2 ABG HCO3 ABG O2 Saturation ABG Base Excess ABG Hemoglobin ABG Oxyhemoglobin ABG Sodium ABG Potassium ABG Chloride ABG Glucose Oxyhemoglobin Carboxyhemoglobin Sodium Potassium Chloride Carbon Dioxide BUN Creatinine Glucose POC Glucose Hemoglobin A1c Lactic Acid Calcium Magnesium Ferritin 997.5 H Total Bilirubin AST ALT Alkaline Phosphatase Lactate Dehydrogenase 463 H Total Creatine Kinase C-Reactive Protein Total Protein Albumin Triglycerides Arterial Blood Glucose Arterial Blood Ionized Calcium Ur Specific [place] Urine WBC (Auto) Vancomycin Trough Coronavirus (PCR) 11/24/20 11/24/20 11/24/20 05:31 05:36 12:05 WBC RBC Hgb Hct MCHC RDW Plt Count Lymph % (Auto) [place] % (Auto) Lymph # (Auto) [place] # (Auto) Baso # (Auto) Seg Neutrophils % Seg Neuts % (Manual) Lymphocytes % (Manual) Nucleated RBC % Seg Neutrophils # Seg Neutrophils # Man Lymphocytes # (Manual) D-Dimer ABG pH POC ABG pCO2 POC ABG pO2 57.2 L ABG pO2 ABG HCO3 ABG O2 Saturation ABG Base Excess ABG Hemoglobin ABG Oxyhemoglobin ABG Sodium ABG Potassium ABG Chloride ABG Glucose 180 H Oxyhemoglobin Carboxyhemoglobin Sodium Potassium Chloride Carbon Dioxide BUN Creatinine Glucose POC Glucose 199 H 143 H Hemoglobin A1c Lactic Acid Calcium Magnesium Ferritin Total Bilirubin AST ALT Alkaline Phosphatase Lactate Dehydrogenase Total Creatine Kinase C-Reactive Protein Total Protein Albumin Triglycerides Arterial Blood Glucose 180 H Arterial Blood Ionized Calcium 4.5 L Ur Specific [place] Urine WBC (Auto) Vancomycin Trough Coronavirus (PCR) 11/24/20 11/24/20 11/24/20 12:14 17:47 23:47 WBC RBC Hgb Hct MCHC RDW Plt Count Lymph % (Auto) [place] % (Auto) Lymph # (Auto) [place] # (Auto) Baso # (Auto) Seg Neutrophils % Seg Neuts % (Manual) Lymphocytes % (Manual) Nucleated RBC % Seg Neutrophils # Seg Neutrophils # Man Lymphocytes # (Manual) D-Dimer ABG pH 7.261 L POC ABG pCO2 59.7 H POC ABG pO2 75.7 L ABG pO2 ABG HCO3 ABG O2 Saturation ABG Base Excess ABG Hemoglobin ABG Oxyhemoglobin 92.5 L ABG Sodium ABG Potassium ABG Chloride 108.0 H ABG Glucose 150 H Oxyhemoglobin Carboxyhemoglobin Sodium Potassium Chloride Carbon Dioxide BUN Creatinine Glucose POC Glucose 223 H 179 H Hemoglobin A1c Lactic Acid Calcium Magnesium Ferritin Total Bilirubin AST ALT Alkaline Phosphatase Lactate Dehydrogenase Total Creatine Kinase C-Reactive Protein Total Protein Albumin Triglycerides Arterial Blood Glucose 150 H Arterial Blood Ionized Calcium Ur Specific [place] Urine WBC (Auto) Vancomycin Trough Coronavirus (PCR) 11/25/20 11/25/20 11/25/20 03:29 05:07 05:15 WBC 13.9 H RBC Hgb Hct MCHC RDW Plt Count Lymph % (Auto) [place] % (Auto) Lymph # (Auto) [place] # (Auto) Baso # (Auto) Seg Neutrophils % Seg Neuts % (Manual) 97.0 H Lymphocytes % (Manual) Nucleated RBC % Seg Neutrophils # Seg Neutrophils # Man 13.5 H Lymphocytes # (Manual) 0.0 L D-Dimer ABG pH 7.272 L POC ABG pCO2 69.0 H POC ABG pO2 132.9 H ABG pO2 ABG HCO3 ABG O2 Saturation ABG Base Excess ABG Hemoglobin ABG Oxyhemoglobin ABG Sodium ABG Potassium ABG Chloride ABG Glucose 174 H Oxyhemoglobin Carboxyhemoglobin Sodium Potassium Chloride Carbon Dioxide BUN Creatinine Glucose POC Glucose 168 H Hemoglobin A1c Lactic Acid Calcium Magnesium Ferritin Total Bilirubin AST ALT Alkaline Phosphatase Lactate Dehydrogenase Total Creatine Kinase C-Reactive Protein Total Protein Albumin Triglycerides Arterial Blood Glucose 174 H Arterial Blood Ionized Calcium Ur Specific [place] Urine WBC (Auto) Vancomycin Trough Coronavirus (PCR) 11/25/20 11/25/20 11/25/20 05:15 11:25 17:35 WBC RBC Hgb Hct MCHC RDW Plt Count Lymph % (Auto) [place] % (Auto) Lymph # (Auto) [place] # (Auto) Baso # (Auto) Seg Neutrophils % Seg Neuts % (Manual) Lymphocytes % (Manual) Nucleated RBC % Seg Neutrophils # Seg Neutrophils # Man Lymphocytes # (Manual) D-Dimer ABG pH POC ABG pCO2 POC ABG pO2 ABG pO2 ABG HCO3 ABG O2 Saturation ABG Base Excess ABG Hemoglobin ABG Oxyhemoglobin ABG Sodium ABG Potassium ABG Chloride ABG Glucose Oxyhemoglobin Carboxyhemoglobin Sodium Potassium Chloride Carbon Dioxide BUN 29 H Creatinine 0.5 L Glucose 161 H POC Glucose 224 H 228 H Hemoglobin A1c Lactic Acid Calcium 7.8 L Magnesium Ferritin Total Bilirubin AST 89 H ALT 129 H Alkaline Phosphatase Lactate Dehydrogenase Total Creatine Kinase C-Reactive Protein Total Protein 5.8 L Albumin 2.5 L Triglycerides Arterial Blood Glucose Arterial Blood Ionized Calcium Ur Specific [place] Urine WBC (Auto) Vancomycin Trough Coronavirus (PCR) 11/25/20 11/25/20 11/26/20 20:45 23:28 04:00 WBC RBC Hgb Hct MCHC RDW Plt Count Lymph % (Auto) [place] % (Auto) Lymph # (Auto) [place] # (Auto) Baso # (Auto) Seg Neutrophils % Seg Neuts % (Manual) Lymphocytes % (Manual) Nucleated RBC % Seg Neutrophils # Seg Neutrophils # Man Lymphocytes # (Manual) D-Dimer ABG pH POC ABG pCO2 POC ABG pO2 ABG pO2 ABG HCO3 ABG O2 Saturation ABG Base Excess ABG Hemoglobin ABG Oxyhemoglobin ABG Sodium ABG Potassium ABG Chloride ABG Glucose Oxyhemoglobin Carboxyhemoglobin Sodium Potassium Chloride Carbon Dioxide BUN Creatinine Glucose POC Glucose 177 H 243 H Hemoglobin A1c Lactic Acid Calcium Magnesium Ferritin 778.8 H Total Bilirubin AST ALT Alkaline Phosphatase Lactate Dehydrogenase Total Creatine Kinase C-Reactive Protein Total Protein Albumin Triglycerides Arterial Blood Glucose Arterial Blood Ionized Calcium Ur Specific [place] Urine WBC (Auto) Vancomycin Trough Coronavirus (PCR) 11/26/20 11/26/20 11/26/20 04:00 05:34 06:04 WBC RBC Hgb Hct MCHC RDW Plt Count Lymph % (Auto) [place] % (Auto) Lymph # (Auto) [place] # (Auto) Baso # (Auto) Seg Neutrophils % Seg Neuts % (Manual) Lymphocytes % (Manual) Nucleated RBC % Seg Neutrophils # Seg Neutrophils # Man Lymphocytes # (Manual) D-Dimer 926.11 H ABG pH POC ABG pCO2 POC ABG pO2 ABG pO2 ABG HCO3 ABG O2 Saturation ABG Base Excess ABG Hemoglobin ABG Oxyhemoglobin ABG Sodium ABG Potassium ABG Chloride ABG Glucose Oxyhemoglobin Carboxyhemoglobin Sodium Potassium Chloride Carbon Dioxide 39 H D BUN 30 H Creatinine 0.5 L Glucose 193 H POC Glucose 178 H Hemoglobin A1c Lactic Acid Calcium 7.7 L Magnesium Ferritin Total Bilirubin AST 65 H ALT 132 H Alkaline Phosphatase Lactate Dehydrogenase 288 H Total Creatine Kinase C-Reactive Protein 1.40 H Total Protein 5.7 L Albumin 2.4 L Triglycerides Arterial Blood Glucose Arterial Blood Ionized Calcium Ur Specific [place] Urine WBC (Auto) Vancomycin Trough Coronavirus (PCR) 11/26/20 11/26/20 11/26/20 06:04 08:47 11:20 WBC 12.4 H RBC Hgb Hct MCHC RDW Plt Count Lymph % (Auto) [place] % (Auto) Lymph # (Auto) [place] # (Auto) Baso # (Auto) Seg Neutrophils % Seg Neuts % (Manual) 98.0 H Lymphocytes % (Manual) 1.0 L Nucleated RBC % Seg Neutrophils # Seg Neutrophils # Man 12.2 H Lymphocytes # (Manual) 0.1 L D-Dimer ABG pH POC ABG pCO2 75.2 H POC ABG pO2 61.9 L ABG pO2 ABG HCO3 ABG O2 Saturation ABG Base Excess ABG Hemoglobin ABG Oxyhemoglobin 90.3 L ABG Sodium ABG Potassium ABG Chloride ABG Glucose 243 H Oxyhemoglobin Carboxyhemoglobin Sodium Potassium Chloride Carbon Dioxide BUN Creatinine Glucose POC Glucose 255 H Hemoglobin A1c Lactic Acid Calcium Magnesium Ferritin Total Bilirubin AST ALT Alkaline Phosphatase Lactate Dehydrogenase Total Creatine Kinase C-Reactive Protein Total Protein Albumin Triglycerides Arterial Blood Glucose 243 H Arterial Blood Ionized Calcium Ur Specific [place] Urine WBC (Auto) Vancomycin Trough Coronavirus (PCR) 11/26/20 11/26/20 11/26/20 16:20 17:15 23:41 WBC RBC Hgb Hct MCHC RDW Plt Count Lymph % (Auto) [place] % (Auto) Lymph # (Auto) [place] # (Auto) Baso # (Auto) Seg Neutrophils % Seg Neuts % (Manual) Lymphocytes % (Manual) Nucleated RBC % Seg Neutrophils # Seg Neutrophils # Man Lymphocytes # (Manual) D-Dimer ABG pH POC ABG pCO2 66.6 H POC ABG pO2 78.1 L ABG pO2 ABG HCO3 ABG O2 Saturation ABG Base Excess ABG Hemoglobin ABG Oxyhemoglobin ABG Sodium ABG Potassium ABG Chloride ABG Glucose 244 H Oxyhemoglobin Carboxyhemoglobin Sodium Potassium Chloride Carbon Dioxide BUN Creatinine Glucose POC Glucose 219 H 210 H Hemoglobin A1c Lactic Acid Calcium Magnesium Ferritin Total Bilirubin AST ALT Alkaline Phosphatase Lactate Dehydrogenase Total Creatine Kinase C-Reactive Protein Total Protein Albumin Triglycerides Arterial Blood Glucose 244 H Arterial Blood Ionized Calcium Ur Specific [place] Urine WBC (Auto) Vancomycin Trough Coronavirus (PCR) 11/27/20 11/27/20 11/27/20 04:46 05:38 06:25 WBC 13.8 H RBC Hgb Hct MCHC RDW Plt Count Lymph % (Auto) 2.0 L [place] % (Auto) Lymph # (Auto) 0.3 L [place] # (Auto) Baso # (Auto) Seg Neutrophils % Seg Neuts % (Manual) 96.0 H Lymphocytes % (Manual) Nucleated RBC % Seg Neutrophils # 12.7 H Seg Neutrophils # Man 13.2 H Lymphocytes # (Manual) 0.0 L D-Dimer ABG pH POC ABG pCO2 63.0 H POC ABG pO2 53.6 L ABG pO2 ABG HCO3 ABG O2 Saturation ABG Base Excess ABG Hemoglobin ABG Oxyhemoglobin 87.8 L ABG Sodium 115.4 L ABG Potassium ABG Chloride ABG Glucose 219 H Oxyhemoglobin Carboxyhemoglobin Sodium Potassium Chloride Carbon Dioxide BUN Creatinine Glucose POC Glucose 227 H Hemoglobin A1c Lactic Acid Calcium Magnesium Ferritin Total Bilirubin AST ALT Alkaline Phosphatase Lactate Dehydrogenase Total Creatine Kinase C-Reactive Protein Total Protein Albumin Triglycerides Arterial Blood Glucose 219 H Arterial Blood Ionized Calcium Ur Specific [place] Urine WBC (Auto) Vancomycin Trough Coronavirus (PCR) 11/27/20 11/27/20 11/27/20 06:25 18:05 23:29 WBC RBC Hgb Hct MCHC RDW Plt Count Lymph % (Auto) [place] % (Auto) Lymph # (Auto) [place] # (Auto) Baso # (Auto) Seg Neutrophils % Seg Neuts % (Manual) Lymphocytes % (Manual) Nucleated RBC % Seg Neutrophils # Seg Neutrophils # Man Lymphocytes # (Manual) D-Dimer ABG pH POC ABG pCO2 POC ABG pO2 ABG pO2 ABG HCO3 ABG O2 Saturation ABG Base Excess ABG Hemoglobin ABG Oxyhemoglobin ABG Sodium ABG Potassium ABG Chloride ABG Glucose Oxyhemoglobin Carboxyhemoglobin Sodium Potassium Chloride Carbon Dioxide 38 H BUN 34 H Creatinine 0.4 L Glucose 243 H POC Glucose 329 H 227 H Hemoglobin A1c Lactic Acid Calcium 7.9 L Magnesium Ferritin Total Bilirubin AST 50 H ALT 110 H Alkaline Phosphatase Lactate Dehydrogenase Total Creatine Kinase C-Reactive Protein Total Protein 6.1 L Albumin 2.4 L Triglycerides Arterial Blood Glucose Arterial Blood Ionized Calcium Ur Specific [place] Urine WBC (Auto) Vancomycin Trough Coronavirus (PCR) 11/28/20 11/28/20 11/28/20 03:45 03:45 03:46 WBC 12.2 H RBC Hgb Hct MCHC RDW Plt Count Lymph % (Auto) [place] % (Auto) Lymph # (Auto) [place] # (Auto) Baso # (Auto) Seg Neutrophils % Seg Neuts % (Manual) 93.0 H Lymphocytes % (Manual) 2.0 L Nucleated RBC % Seg Neutrophils # Seg Neutrophils # Man 11.3 H Lymphocytes # (Manual) 0.2 L D-Dimer ABG pH POC ABG pCO2 68.4 H POC ABG pO2 55.4 L ABG pO2 ABG HCO3 ABG O2 Saturation ABG Base Excess ABG Hemoglobin ABG Oxyhemoglobin ABG Sodium ABG Potassium ABG Chloride ABG Glucose 197 H Oxyhemoglobin Carboxyhemoglobin Sodium Potassium Chloride Carbon Dioxide 36 H BUN 37 H Creatinine 0.4 L Glucose 194 H POC Glucose Hemoglobin A1c Lactic Acid Calcium 8.1 L Magnesium Ferritin Total Bilirubin AST ALT 86 H Alkaline Phosphatase Lactate Dehydrogenase Total Creatine Kinase C-Reactive Protein Total Protein 6.0 L Albumin 2.3 L Triglycerides Arterial Blood Glucose 197 H Arterial Blood Ionized Calcium Ur Specific [place] Urine WBC (Auto) Vancomycin Trough Coronavirus (PCR) 11/28/20 11/28/20 11/29/20 05:24 12:21 04:41 WBC RBC Hgb Hct MCHC RDW Plt Count Lymph % (Auto) [place] % (Auto) Lymph # (Auto) [place] # (Auto) Baso # (Auto) Seg Neutrophils % Seg Neuts % (Manual) Lymphocytes % (Manual) Nucleated RBC % Seg Neutrophils # Seg Neutrophils # Man Lymphocytes # (Manual) D-Dimer ABG pH POC ABG pCO2 55.1 H POC ABG pO2 53.6 L ABG pO2 ABG HCO3 ABG O2 Saturation ABG Base Excess ABG Hemoglobin ABG Oxyhemoglobin 87.1 L ABG Sodium 131.2 L ABG Potassium ABG Chloride ABG Glucose 164 H Oxyhemoglobin Carboxyhemoglobin Sodium Potassium Chloride Carbon Dioxide BUN Creatinine Glucose POC Glucose 173 H 126 H Hemoglobin A1c Lactic Acid Calcium Magnesium Ferritin Total Bilirubin AST ALT Alkaline Phosphatase Lactate Dehydrogenase Total Creatine Kinase C-Reactive Protein Total Protein Albumin Triglycerides Arterial Blood Glucose 164 H Arterial Blood Ionized Calcium 4.4 L Ur Specific [place] Urine WBC (Auto) Vancomycin Trough Coronavirus (PCR) 11/29/20 11/29/20 11/29/20 05:29 12:41 13:28 WBC RBC Hgb Hct MCHC RDW Plt Count Lymph % (Auto) [place] % (Auto) Lymph # (Auto) [place] # (Auto) Baso # (Auto) Seg Neutrophils % Seg Neuts % (Manual) Lymphocytes % (Manual) Nucleated RBC % Seg Neutrophils # Seg Neutrophils # Man Lymphocytes # (Manual) D-Dimer ABG pH POC ABG pCO2 POC ABG pO2 ABG pO2 ABG HCO3 ABG O2 Saturation ABG Base Excess ABG Hemoglobin ABG Oxyhemoglobin ABG Sodium ABG Potassium ABG Chloride ABG Glucose Oxyhemoglobin Carboxyhemoglobin Sodium Potassium Chloride Carbon Dioxide 40 H BUN 32 H Creatinine 0.4 L Glucose 274 H POC Glucose 173 H 257 H Hemoglobin A1c Lactic Acid Calcium 7.2 L Magnesium Ferritin Total Bilirubin AST 57 H ALT 102 H Alkaline Phosphatase Lactate Dehydrogenase Total Creatine Kinase C-Reactive Protein Total Protein 5.7 L Albumin 2.1 L Triglycerides Arterial Blood Glucose Arterial Blood Ionized Calcium Ur Specific [place] Urine WBC (Auto) Vancomycin Trough Coronavirus (PCR) 11/29/20 11/29/20 11/29/20 15:40 17:36 21:26 WBC RBC Hgb Hct MCHC RDW Plt Count Lymph % (Auto) [place] % (Auto) Lymph # (Auto) [place] # (Auto) Baso # (Auto) Seg Neutrophils % Seg Neuts % (Manual) Lymphocytes % (Manual) Nucleated RBC % Seg Neutrophils # Seg Neutrophils # Man Lymphocytes # (Manual) D-Dimer ABG pH POC ABG pCO2 POC ABG pO2 ABG pO2 ABG HCO3 ABG O2 Saturation ABG Base Excess ABG Hemoglobin ABG Oxyhemoglobin ABG Sodium ABG Potassium ABG Chloride ABG Glucose Oxyhemoglobin Carboxyhemoglobin Sodium Potassium Chloride Carbon Dioxide BUN Creatinine Glucose POC Glucose 240 H 244 H Hemoglobin A1c Lactic Acid Calcium Magnesium Ferritin Total Bilirubin AST ALT Alkaline Phosphatase Lactate Dehydrogenase Total Creatine Kinase C-Reactive Protein Total Protein Albumin Triglycerides Arterial Blood Glucose Arterial Blood Ionized Calcium Ur Specific [place] Urine WBC (Auto) Vancomycin Trough 4.0 L Coronavirus (PCR) 11/29/20 11/30/20 11/30/20 23:26 03:30 03:30 WBC RBC Hgb Hct MCHC RDW Plt Count Lymph % (Auto) [place] % (Auto) Lymph # (Auto) [place] # (Auto) Baso # (Auto) Seg Neutrophils % Seg Neuts % (Manual) 97.0 H Lymphocytes % (Manual) 1.0 L Nucleated RBC % Seg Neutrophils # Seg Neutrophils # Man 9.9 H Lymphocytes # (Manual) 0.1 L D-Dimer ABG pH POC ABG pCO2 POC ABG pO2 ABG pO2 ABG HCO3 ABG O2 Saturation ABG Base Excess ABG Hemoglobin ABG Oxyhemoglobin ABG Sodium ABG Potassium ABG Chloride ABG Glucose Oxyhemoglobin Carboxyhemoglobin Sodium Potassium Chloride Carbon Dioxide 38 H BUN 34 H Creatinine 0.4 L Glucose 305 H POC Glucose 283 H Hemoglobin A1c Lactic Acid Calcium 7.6 L Magnesium Ferritin Total Bilirubin AST ALT 89 H Alkaline Phosphatase Lactate Dehydrogenase Total Creatine Kinase C-Reactive Protein Total Protein 6.0 L Albumin 2.3 L Triglycerides Arterial Blood Glucose Arterial Blood Ionized Calcium Ur Specific [place] Urine WBC (Auto) Vancomycin Trough Coronavirus (PCR) 11/30/20 11/30/20 11/30/20 03:57 05:22 12:05 WBC RBC Hgb Hct MCHC RDW Plt Count Lymph % (Auto) [place] % (Auto) Lymph # (Auto) [place] # (Auto) Baso # (Auto) Seg Neutrophils % Seg Neuts % (Manual) Lymphocytes % (Manual) Nucleated RBC % Seg Neutrophils # Seg Neutrophils # Man Lymphocytes # (Manual) D-Dimer ABG pH POC ABG pCO2 60.8 H POC ABG pO2 51.1 L ABG pO2 ABG HCO3 ABG O2 Saturation ABG Base Excess ABG Hemoglobin ABG Oxyhemoglobin 84.6 L ABG Sodium ABG Potassium ABG Chloride ABG Glucose 315 H Oxyhemoglobin Carboxyhemoglobin Sodium Potassium Chloride Carbon Dioxide BUN Creatinine Glucose POC Glucose 295 H 413 H Hemoglobin A1c Lactic Acid Calcium Magnesium Ferritin Total Bilirubin AST ALT Alkaline Phosphatase Lactate Dehydrogenase Total Creatine Kinase C-Reactive Protein Total Protein Albumin Triglycerides Arterial Blood Glucose 315 H Arterial Blood Ionized Calcium 4.5 L Ur Specific [place] Urine WBC (Auto) Vancomycin Trough Coronavirus (PCR) 11/30/20 11/30/2012/01/21 17:24 23:25 02:14 WBC RBC Hgb Hct MCHC RDW Plt Count Lymph % (Auto) [place] % (Auto) Lymph # (Auto) [place] # (Auto) Baso # (Auto) Seg Neutrophils % Seg Neuts % (Manual) Lymphocytes % (Manual) Nucleated RBC % Seg Neutrophils # Seg Neutrophils # Man Lymphocytes # (Manual) D-Dimer ABG pH 7.278 L POC ABG pCO2 78.1 H POC ABG pO2 79.5 L ABG pO2 ABG HCO3 ABG O2 Saturation ABG Base Excess ABG Hemoglobin 11.6 L ABG Oxyhemoglobin ABG Sodium 134.5 L ABG Potassium 4.6 H ABG Chloride ABG Glucose 286 H Oxyhemoglobin Carboxyhemoglobin Sodium Potassium Chloride Carbon Dioxide BUN Creatinine Glucose POC Glucose 305 H 302 H Hemoglobin A1c Lactic Acid Calcium Magnesium Ferritin Total Bilirubin AST ALT Alkaline Phosphatase Lactate Dehydrogenase Total Creatine Kinase C-Reactive Protein Total Protein Albumin Triglycerides Arterial Blood Glucose 286 H Arterial Blood Ionized Calcium Ur Specific [place] Urine WBC (Auto) Vancomycin Trough Coronavirus (PCR) 12/01/20 12/01/20 12/01/20 03:35 03:35 05:22 WBC 13.4 H RBC 3.54 L Hgb 10.4 L Hct 31.8 L MCHC RDW Plt Count Lymph % (Auto) [place] % (Auto) Lymph # (Auto) [place] # (Auto) Baso # (Auto) Seg Neutrophils % Seg Neuts % (Manual) 95.0 H Lymphocytes % (Manual) 3.0 L Nucleated RBC % Seg Neutrophils # Seg Neutrophils # Man 12.7 H Lymphocytes # (Manual) 0.4 L D-Dimer ABG pH POC ABG pCO2 POC ABG pO2 ABG pO2 ABG HCO3 ABG O2 Saturation ABG Base Excess ABG Hemoglobin ABG Oxyhemoglobin ABG Sodium ABG Potassium ABG Chloride ABG Glucose Oxyhemoglobin Carboxyhemoglobin Sodium Potassium Chloride Carbon Dioxide 35 H BUN 34 H Creatinine 0.5 L Glucose 279 H POC Glucose 259 H Hemoglobin A1c Lactic Acid Calcium 7.6 L Magnesium Ferritin Total Bilirubin AST ALT 63 H Alkaline Phosphatase Lactate Dehydrogenase Total Creatine Kinase C-Reactive Protein Total Protein 4.8 L Albumin 2.1 L Triglycerides Arterial Blood Glucose Arterial Blood Ionized Calcium Ur Specific [place] Urine WBC (Auto) Vancomycin Trough Coronavirus (PCR) 12/01/20 12/01/20 12/01/20 12:05 17:40 23:46 WBC RBC Hgb Hct MCHC RDW Plt Count Lymph % (Auto) [place] % (Auto) Lymph # (Auto) [place] # (Auto) Baso # (Auto) Seg Neutrophils % Seg Neuts % (Manual) Lymphocytes % (Manual) Nucleated RBC % Seg Neutrophils # Seg Neutrophils # Man Lymphocytes # (Manual) D-Dimer ABG pH POC ABG pCO2 POC ABG pO2 ABG pO2 ABG HCO3 ABG O2 Saturation ABG Base Excess ABG Hemoglobin ABG Oxyhemoglobin ABG Sodium ABG Potassium ABG Chloride ABG Glucose Oxyhemoglobin Carboxyhemoglobin Sodium Potassium Chloride Carbon Dioxide BUN Creatinine Glucose POC Glucose 197 H 244 H 284 H Hemoglobin A1c Lactic Acid Calcium Magnesium Ferritin Total Bilirubin AST ALT Alkaline Phosphatase Lactate Dehydrogenase Total Creatine Kinase C-Reactive Protein Total Protein Albumin Triglycerides Arterial Blood Glucose Arterial Blood Ionized Calcium Ur Specific [place] Urine WBC (Auto) Vancomycin Trough Coronavirus (PCR) 12/02/20 12/02/20 12/02/20 02:14 03:03 04:11 WBC 16.5 H RBC 3.55 L Hgb 10.5 L Hct 31.9 L MCHC RDW Plt Count Lymph % (Auto) [place] % (Auto) Lymph # (Auto) [place] # (Auto) Baso # (Auto) Seg Neutrophils % Seg Neuts % (Manual) 90.0 H Lymphocytes % (Manual) 3.0 L Nucleated RBC % Seg Neutrophils # Seg Neutrophils # Man 14.9 H Lymphocytes # (Manual) 0.5 L D-Dimer ABG pH POC ABG pCO2 74.8 H POC ABG pO2 58.9 L ABG pO2 ABG HCO3 ABG O2 Saturation ABG Base Excess ABG Hemoglobin 11.5 L ABG Oxyhemoglobin ABG Sodium ABG Potassium ABG Chloride ABG Glucose 264 H Oxyhemoglobin Carboxyhemoglobin Sodium Potassium Chloride Carbon Dioxide 37 H BUN 30 H Creatinine 0.4 L Glucose 245 H POC Glucose Hemoglobin A1c Lactic Acid Calcium 7.5 L Magnesium Ferritin Total Bilirubin AST ALT Alkaline Phosphatase Lactate Dehydrogenase Total Creatine Kinase C-Reactive Protein Total Protein 5.2 L Albumin 2.2 L Triglycerides Arterial Blood Glucose 264 H Arterial Blood Ionized Calcium 4.5 L Ur Specific [place] Urine WBC (Auto) Vancomycin Trough Coronavirus (PCR) 12/02/20 12/02/20 12/02/20 05:19 11:46 17:52 WBC RBC Hgb Hct MCHC RDW Plt Count Lymph % (Auto) [place] % (Auto) Lymph # (Auto) [place] # (Auto) Baso # (Auto) Seg Neutrophils % Seg Neuts % (Manual) Lymphocytes % (Manual) Nucleated RBC % Seg Neutrophils # Seg Neutrophils # Man Lymphocytes # (Manual) D-Dimer ABG pH POC ABG pCO2 POC ABG pO2 ABG pO2 ABG HCO3 ABG O2 Saturation ABG Base Excess ABG Hemoglobin ABG Oxyhemoglobin ABG Sodium ABG Potassium ABG Chloride ABG Glucose Oxyhemoglobin Carboxyhemoglobin Sodium Potassium Chloride Carbon Dioxide BUN Creatinine Glucose POC Glucose 238 H 236 H 233 H Hemoglobin A1c Lactic Acid Calcium Magnesium Ferritin Total Bilirubin AST ALT Alkaline Phosphatase Lactate Dehydrogenase Total Creatine Kinase C-Reactive Protein Total Protein Albumin Triglycerides Arterial Blood Glucose Arterial Blood Ionized Calcium Ur Specific [place] Urine WBC (Auto) Vancomycin Trough Coronavirus (PCR) 12/02/20 12/03/20 12/03/20 23:23 03:21 04:35 WBC RBC Hgb Hct MCHC RDW Plt Count 112 L Lymph % (Auto) [place] % (Auto) Lymph # (Auto) [place] # (Auto) Baso # (Auto) Seg Neutrophils % Seg Neuts % (Manual) 93.0 H Lymphocytes % (Manual) 4.0 L Nucleated RBC % Seg Neutrophils # Seg Neutrophils # Man 9.1 H Lymphocytes # (Manual) 0.4 L D-Dimer ABG pH 7.299 L POC ABG pCO2 82.1 H POC ABG pO2 62.4 L ABG pO2 ABG HCO3 ABG O2 Saturation ABG Base Excess ABG Hemoglobin 11.5 L ABG Oxyhemoglobin 89.6 L ABG Sodium 134.3 L ABG Potassium ABG Chloride 95.0 L ABG Glucose 203 H Oxyhemoglobin Carboxyhemoglobin Sodium Potassium Chloride Carbon Dioxide BUN Creatinine Glucose POC Glucose 213 H Hemoglobin A1c Lactic Acid Calcium Magnesium Ferritin Total Bilirubin AST ALT Alkaline Phosphatase Lactate Dehydrogenase Total Creatine Kinase C-Reactive Protein Total Protein Albumin Triglycerides Arterial Blood Glucose 203 H Arterial Blood Ionized Calcium 4.5 L Ur Specific [place] Urine WBC (Auto) Vancomycin Trough Coronavirus (PCR) 12/03/20 12/03/20 12/03/20 04:35 05:42 11:28 WBC RBC Hgb Hct MCHC RDW Plt Count Lymph % (Auto) [place] % (Auto) Lymph # (Auto) [place] # (Auto) Baso # (Auto) Seg Neutrophils % Seg Neuts % (Manual) Lymphocytes % (Manual) Nucleated RBC % Seg Neutrophils # Seg Neutrophils # Man Lymphocytes # (Manual) D-Dimer ABG pH POC ABG pCO2 POC ABG pO2 ABG pO2 ABG HCO3 ABG O2 Saturation ABG Base Excess ABG Hemoglobin ABG Oxyhemoglobin ABG Sodium ABG Potassium ABG Chloride ABG Glucose Oxyhemoglobin Carboxyhemoglobin Sodium Potassium Chloride 97.8 L Carbon Dioxide 43 H* BUN 25 H Creatinine 0.3 L Glucose 214 H POC Glucose 193 H 211 H Hemoglobin A1c Lactic Acid Calcium 7.7 L Magnesium Ferritin Total Bilirubin AST ALT 63 H Alkaline Phosphatase 132 H Lactate Dehydrogenase Total Creatine Kinase C-Reactive Protein Total Protein 5.1 L Albumin 2.4 L Triglycerides Arterial Blood Glucose Arterial Blood Ionized Calcium Ur Specific [place] Urine WBC (Auto) Vancomycin Trough Coronavirus (PCR) 12/03/20 12/03/20 12/04/20 17:45 23:57 00:11 WBC RBC Hgb Hct MCHC RDW Plt Count Lymph % (Auto) [place] % (Auto) Lymph # (Auto) [place] # (Auto) Baso # (Auto) Seg Neutrophils % Seg Neuts % (Manual) Lymphocytes % (Manual) Nucleated RBC % Seg Neutrophils # Seg Neutrophils # Man Lymphocytes # (Manual) D-Dimer ABG pH POC ABG pCO2 POC ABG pO2 ABG pO2 ABG HCO3 ABG O2 Saturation ABG Base Excess ABG Hemoglobin ABG Oxyhemoglobin ABG Sodium ABG Potassium ABG Chloride ABG Glucose Oxyhemoglobin Carboxyhemoglobin Sodium Potassium Chloride Carbon Dioxide BUN Creatinine Glucose POC Glucose 231 H 240 H 239 H Hemoglobin A1c Lactic Acid Calcium Magnesium Ferritin Total Bilirubin AST ALT Alkaline Phosphatase Lactate Dehydrogenase Total Creatine Kinase C-Reactive Protein Total Protein Albumin Triglycerides Arterial Blood Glucose Arterial Blood Ionized Calcium Ur Specific [place] Urine WBC (Auto) Vancomycin Trough Coronavirus (PCR) 12/04/20 12/04/20 12/04/20 04:00 05:20 05:34 WBC RBC Hgb Hct MCHC RDW Plt Count Lymph % (Auto) [place] % (Auto) Lymph # (Auto) [place] # (Auto) Baso # (Auto) Seg Neutrophils % Seg Neuts % (Manual) Lymphocytes % (Manual) Nucleated RBC % Seg Neutrophils # Seg Neutrophils # Man Lymphocytes # (Manual) D-Dimer ABG pH POC ABG pCO2 84.4 H POC ABG pO2 68.0 L ABG pO2 ABG HCO3 ABG O2 Saturation ABG Base Excess ABG Hemoglobin 11.6 L ABG Oxyhemoglobin ABG Sodium 130.9 L ABG Potassium ABG Chloride 90.0 L ABG Glucose 244 H Oxyhemoglobin Carboxyhemoglobin Sodium Potassium Chloride Carbon Dioxide BUN Creatinine Glucose POC Glucose 241 H 213 H Hemoglobin A1c Lactic Acid Calcium Magnesium Ferritin Total Bilirubin AST ALT Alkaline Phosphatase Lactate Dehydrogenase Total Creatine Kinase C-Reactive Protein Total Protein Albumin Triglycerides Arterial Blood Glucose 244 H Arterial Blood Ionized Calcium 4.4 L Ur Specific [place] Urine WBC (Auto) Vancomycin Trough Coronavirus (PCR) 12/04/20 12/04/20 12/04/20 11:36 16:53 23:32 WBC RBC Hgb Hct MCHC RDW Plt Count Lymph % (Auto) [place] % (Auto) Lymph # (Auto) [place] # (Auto) Baso # (Auto) Seg Neutrophils % Seg Neuts % (Manual) Lymphocytes % (Manual) Nucleated RBC % Seg Neutrophils # Seg Neutrophils # Man Lymphocytes # (Manual) D-Dimer ABG pH POC ABG pCO2 POC ABG pO2 ABG pO2 ABG HCO3 ABG O2 Saturation ABG Base Excess ABG Hemoglobin ABG Oxyhemoglobin ABG Sodium ABG Potassium ABG Chloride ABG Glucose Oxyhemoglobin Carboxyhemoglobin Sodium Potassium Chloride Carbon Dioxide BUN Creatinine Glucose POC Glucose 196 H 127 H 230 H Hemoglobin A1c Lactic Acid Calcium Magnesium Ferritin Total Bilirubin AST ALT Alkaline Phosphatase Lactate Dehydrogenase Total Creatine Kinase C-Reactive Protein Total Protein Albumin Triglycerides Arterial Blood Glucose Arterial Blood Ionized Calcium Ur Specific [place] Urine WBC (Auto) Vancomycin Trough Coronavirus (PCR) 12/04/20 12/05/20 12/05/20 Unknown 04:16 05:21 WBC RBC Hgb Hct MCHC RDW Plt Count Lymph % (Auto) [place] % (Auto) Lymph # (Auto) [place] # (Auto) Baso # (Auto) Seg Neutrophils % Seg Neuts % (Manual) Lymphocytes % (Manual) Nucleated RBC % Seg Neutrophils # Seg Neutrophils # Man Lymphocytes # (Manual) D-Dimer ABG pH POC ABG pCO2 86.7 H POC ABG pO2 58.0 L ABG pO2 ABG HCO3 ABG O2 Saturation ABG Base Excess ABG Hemoglobin 11.6 L ABG Oxyhemoglobin 89 L ABG Sodium 130.1 L ABG Potassium 4.9 H ABG Chloride 89.0 L ABG Glucose 254 H Oxyhemoglobin Carboxyhemoglobin Sodium 136 L Potassium Chloride 90.0 L Carbon Dioxide 46 H* BUN 24 H Creatinine 0.3 L Glucose 226 H POC Glucose 213 H Hemoglobin A1c Lactic Acid Calcium 7.6 L Magnesium Ferritin Total Bilirubin AST 46 H ALT 78 H Alkaline Phosphatase 172 H Lactate Dehydrogenase Total Creatine Kinase C-Reactive Protein Total Protein 6.0 L Albumin 2.8 L Triglycerides 156 H Arterial Blood Glucose 254 H Arterial Blood Ionized Calcium 4.4 L Ur Specific [place] Urine WBC (Auto) Vancomycin Trough Coronavirus (PCR) 12/05/20 12/05/20 12/05/20 11:22 17:26 23:38 WBC RBC Hgb Hct MCHC RDW Plt Count Lymph % (Auto) [place] % (Auto) Lymph # (Auto) [place] # (Auto) Baso # (Auto) Seg Neutrophils % Seg Neuts % (Manual) Lymphocytes % (Manual) Nucleated RBC % Seg Neutrophils # Seg Neutrophils # Man Lymphocytes # (Manual) D-Dimer ABG pH POC ABG pCO2 POC ABG pO2 ABG pO2 ABG HCO3 ABG O2 Saturation ABG Base Excess ABG Hemoglobin ABG Oxyhemoglobin ABG Sodium ABG Potassium ABG Chloride ABG Glucose Oxyhemoglobin Carboxyhemoglobin Sodium Potassium Chloride Carbon Dioxide BUN Creatinine Glucose POC Glucose 212 H 157 H 204 H Hemoglobin A1c Lactic Acid Calcium Magnesium Ferritin Total Bilirubin AST ALT Alkaline Phosphatase Lactate Dehydrogenase Total Creatine Kinase C-Reactive Protein Total Protein Albumin Triglycerides Arterial Blood Glucose Arterial Blood Ionized Calcium Ur Specific [place] Urine WBC (Auto) Vancomycin Trough Coronavirus (PCR) 12/06/20 12/06/20 12/06/20 04:31 04:31 05:12 WBC 17.0 H RBC 3.63 L Hgb 10.8 L D Hct 32.6 L D MCHC RDW Plt Count Lymph % (Auto) [place] % (Auto) Lymph # (Auto) [place] # (Auto) Baso # (Auto) Seg Neutrophils % Seg Neuts % (Manual) Lymphocytes % (Manual) Nucleated RBC % Seg Neutrophils # Seg Neutrophils # Man Lymphocytes # (Manual) D-Dimer ABG pH POC ABG pCO2 85.9 H POC ABG pO2 57.6 L ABG pO2 ABG HCO3 ABG O2 Saturation ABG Base Excess ABG Hemoglobin ABG Oxyhemoglobin ABG Sodium 131.2 L ABG Potassium 4.8 H ABG Chloride 86.0 L ABG Glucose 200 H Oxyhemoglobin Carboxyhemoglobin Sodium 134 L Potassium 5.1 H Chloride 88.4 L Carbon Dioxide 47 H* BUN 23 H Creatinine 0.3 L Glucose 206 H POC Glucose Hemoglobin A1c Lactic Acid Calcium 8.3 L Magnesium Ferritin Total Bilirubin AST 48 H ALT 91 H Alkaline Phosphatase 140 H Lactate Dehydrogenase Total Creatine Kinase C-Reactive Protein Total Protein 5.7 L Albumin 2.6 L Triglycerides Arterial Blood Glucose 200 H Arterial Blood Ionized Calcium 4.4 L Ur Specific [place] Urine WBC (Auto) Vancomycin Trough Coronavirus (PCR) 12/06/20 12/06/20 12/06/20 05:24 12:18 16:45 WBC RBC Hgb Hct MCHC RDW Plt Count Lymph % (Auto) [place] % (Auto) Lymph # (Auto) [place] # (Auto) Baso # (Auto) Seg Neutrophils % Seg Neuts % (Manual) Lymphocytes % (Manual) Nucleated RBC % Seg Neutrophils # Seg Neutrophils # Man Lymphocytes # (Manual) D-Dimer ABG pH POC ABG pCO2 POC ABG pO2 ABG pO2 ABG HCO3 ABG O2 Saturation ABG Base Excess ABG Hemoglobin ABG Oxyhemoglobin ABG Sodium ABG Potassium ABG Chloride ABG Glucose Oxyhemoglobin Carboxyhemoglobin Sodium Potassium Chloride Carbon Dioxide BUN Creatinine Glucose POC Glucose 186 H 187 H 150 H Hemoglobin A1c Lactic Acid Calcium Magnesium Ferritin Total Bilirubin AST ALT Alkaline Phosphatase Lactate Dehydrogenase Total Creatine Kinase C-Reactive Protein Total Protein Albumin Triglycerides Arterial Blood Glucose Arterial Blood Ionized Calcium Ur Specific [place] Urine WBC (Auto) Vancomycin Trough Coronavirus (PCR) 12/06/20 12/07/20 12/07/20 23:43 05:20 05:21 WBC RBC Hgb Hct MCHC RDW Plt Count Lymph % (Auto) [place] % (Auto) Lymph # (Auto) [place] # (Auto) Baso # (Auto) Seg Neutrophils % Seg Neuts % (Manual) Lymphocytes % (Manual) Nucleated RBC % Seg Neutrophils # Seg Neutrophils # Man Lymphocytes # (Manual) D-Dimer ABG pH POC ABG pCO2 POC ABG pO2 ABG pO2 48.4 L ABG HCO3 50.8 H ABG O2 Saturation 86.2 L ABG Base Excess 22.4 H ABG Hemoglobin 11.0 L ABG Oxyhemoglobin ABG Sodium ABG Potassium ABG Chloride ABG Glucose Oxyhemoglobin 84.0 L Carboxyhemoglobin Sodium Potassium Chloride Carbon Dioxide BUN Creatinine Glucose POC Glucose 153 H 107 H Hemoglobin A1c Lactic Acid Calcium Magnesium Ferritin Total Bilirubin AST ALT Alkaline Phosphatase Lactate Dehydrogenase Total Creatine Kinase C-Reactive Protein Total Protein Albumin Triglycerides Arterial Blood Glucose Arterial Blood Ionized Calcium Ur Specific [place] Urine WBC (Auto) Vancomycin Trough Coronavirus (PCR) 12/07/20 12/07/20 12/07/20 13:20 14:28 17:35 WBC RBC Hgb Hct MCHC RDW Plt Count Lymph % (Auto) [place] % (Auto) Lymph # (Auto) [place] # (Auto) Baso # (Auto) Seg Neutrophils % Seg Neuts % (Manual) Lymphocytes % (Manual) Nucleated RBC % Seg Neutrophils # Seg Neutrophils # Man Lymphocytes # (Manual) D-Dimer ABG pH POC ABG pCO2 74.1 H POC ABG pO2 68.5 L ABG pO2 ABG HCO3 ABG O2 Saturation ABG Base Excess ABG Hemoglobin 10.7 L ABG Oxyhemoglobin 91.9 L ABG Sodium 132.2 L ABG Potassium 4.7 H ABG Chloride 88.0 L ABG Glucose 138 H Oxyhemoglobin Carboxyhemoglobin Sodium 134 L Potassium Chloride 87.4 L Carbon Dioxide 49 H* BUN Creatinine 0.2 L Glucose 132 H POC Glucose 176 H Hemoglobin A1c Lactic Acid Calcium 7.7 L Magnesium Ferritin Total Bilirubin AST ALT Alkaline Phosphatase Lactate Dehydrogenase Total Creatine Kinase C-Reactive Protein Total Protein Albumin Triglycerides Arterial Blood Glucose 138 H Arterial Blood Ionized Calcium 4.0 L Ur Specific [place] Urine WBC (Auto) Vancomycin Trough Coronavirus (PCR) 12/07/20 12/08/20 12/08/20 23:44 04:12 05:29 WBC RBC Hgb Hct MCHC RDW Plt Count Lymph % (Auto) [place] % (Auto) Lymph # (Auto) [place] # (Auto) Baso # (Auto) Seg Neutrophils % Seg Neuts % (Manual) Lymphocytes % (Manual) Nucleated RBC % Seg Neutrophils # Seg Neutrophils # Man Lymphocytes # (Manual) D-Dimer ABG pH POC ABG pCO2 POC ABG pO2 ABG pO2 69.7 L ABG HCO3 50.1 H ABG O2 Saturation ABG Base Excess 21.6 H ABG Hemoglobin 10.9 L ABG Oxyhemoglobin ABG Sodium ABG Potassium ABG Chloride ABG Glucose Oxyhemoglobin 93.2 L Carboxyhemoglobin Sodium Potassium Chloride Carbon Dioxide BUN Creatinine Glucose POC Glucose 143 H 143 H Hemoglobin A1c Lactic Acid Calcium Magnesium Ferritin Total Bilirubin AST ALT Alkaline Phosphatase Lactate Dehydrogenase Total Creatine Kinase C-Reactive Protein Total Protein Albumin Triglycerides Arterial Blood Glucose Arterial Blood Ionized Calcium Ur Specific [place] Urine WBC (Auto) Vancomycin Trough Coronavirus (PCR) 12/08/20 12/08/20 12/09/20 06:10 06:10 04:24 WBC 12.0 H RBC 3.18 L Hgb 9.5 L Hct 28.9 L MCHC RDW Plt Count Lymph % (Auto) [place] % (Auto) Lymph # (Auto) [place] # (Auto) Baso # (Auto) Seg Neutrophils % Seg Neuts % (Manual) 95.0 H Lymphocytes % (Manual) 3.0 L Nucleated RBC % Seg Neutrophils # Seg Neutrophils # Man 11.4 H Lymphocytes # (Manual) 0.4 L D-Dimer ABG pH POC ABG pCO2 76.2 H POC ABG pO2 52.8 L ABG pO2 ABG HCO3 ABG O2 Saturation ABG Base Excess ABG Hemoglobin 11.7 L ABG Oxyhemoglobin ABG Sodium 132.0 L ABG Potassium ABG Chloride 87.0 L ABG Glucose 118 H Oxyhemoglobin Carboxyhemoglobin Sodium 133 L Potassium Chloride 86.3 L Carbon Dioxide 53 H* BUN Creatinine 0.2 L Glucose 156 H POC Glucose Hemoglobin A1c Lactic Acid Calcium 7.6 L Magnesium Ferritin Total Bilirubin AST ALT Alkaline Phosphatase Lactate Dehydrogenase Total Creatine Kinase C-Reactive Protein Total Protein Albumin Triglycerides Arterial Blood Glucose 118 H Arterial Blood Ionized Calcium 4.2 L Ur Specific [place] Urine WBC (Auto) Vancomycin Trough Coronavirus (PCR) 12/09/20 12/09/20 12/09/20 05:44 06:40 06:40 WBC 13.5 H RBC 3.28 L Hgb 9.7 L Hct 29.9 L MCHC RDW Plt Count Lymph % (Auto) [place] % (Auto) Lymph # (Auto) [place] # (Auto) Baso # (Auto) Seg Neutrophils % Seg Neuts % (Manual) Lymphocytes % (Manual) Nucleated RBC % Seg Neutrophils # Seg Neutrophils # Man Lymphocytes # (Manual) D-Dimer ABG pH POC ABG pCO2 POC ABG pO2 ABG pO2 ABG HCO3 ABG O2 Saturation ABG Base Excess ABG Hemoglobin ABG Oxyhemoglobin ABG Sodium ABG Potassium ABG Chloride ABG Glucose Oxyhemoglobin Carboxyhemoglobin Sodium 135 L Potassium Chloride 89.5 L Carbon Dioxide 52 H* BUN Creatinine 0.3 L Glucose 114 H POC Glucose 117 H Hemoglobin A1c Lactic Acid Calcium 7.6 L Magnesium Ferritin Total Bilirubin AST ALT Alkaline Phosphatase Lactate Dehydrogenase Total Creatine Kinase C-Reactive Protein Total Protein Albumin Triglycerides Arterial Blood Glucose Arterial Blood Ionized Calcium Ur Specific [place] Urine WBC (Auto) Vancomycin Trough Coronavirus (PCR) 12/09/20 12/09/20 12/10/20 16:42 21:11 04:28 WBC RBC Hgb Hct MCHC RDW Plt Count Lymph % (Auto) [place] % (Auto) Lymph # (Auto) [place] # (Auto) Baso # (Auto) Seg Neutrophils % Seg Neuts % (Manual) Lymphocytes % (Manual) Nucleated RBC % Seg Neutrophils # Seg Neutrophils # Man Lymphocytes # (Manual) D-Dimer ABG pH POC ABG pCO2 72.5 H 69.4 H 76.9 H POC ABG pO2 50.4 L 80.6 L 60.2 L ABG pO2 ABG HCO3 ABG O2 Saturation ABG Base Excess ABG Hemoglobin 10.4 L 10.7 L 10 L ABG Oxyhemoglobin 84.3 L 89.7 L ABG Sodium 133.7 L 133.7 L 133.8 L ABG Potassium ABG Chloride 90.0 L 91.0 L 91.0 L ABG Glucose 116 H 96 H 57 L Oxyhemoglobin Carboxyhemoglobin 0.4 L Sodium Potassium Chloride Carbon Dioxide BUN Creatinine Glucose POC Glucose Hemoglobin A1c Lactic Acid Calcium Magnesium Ferritin Total Bilirubin AST ALT Alkaline Phosphatase Lactate Dehydrogenase Total Creatine Kinase C-Reactive Protein Total Protein Albumin Triglycerides Arterial Blood Glucose 116 H 96 H 57 L Arterial Blood Ionized Calcium 4.2 L 4.3 L 4.2 L Ur Specific [place] Urine WBC (Auto) Vancomycin Trough Coronavirus (PCR) 12/10/20 12/10/20 12/10/20 05:09 05:41 11:50 WBC RBC Hgb Hct MCHC RDW Plt Count Lymph % (Auto) [place] % (Auto) Lymph # (Auto) [place] # (Auto) Baso # (Auto) Seg Neutrophils % Seg Neuts % (Manual) Lymphocytes % (Manual) Nucleated RBC % Seg Neutrophils # Seg Neutrophils # Man Lymphocytes # (Manual) D-Dimer ABG pH POC ABG pCO2 POC ABG pO2 ABG pO2 ABG HCO3 ABG O2 Saturation ABG Base Excess ABG Hemoglobin ABG Oxyhemoglobin ABG Sodium ABG Potassium ABG Chloride ABG Glucose Oxyhemoglobin Carboxyhemoglobin Sodium Potassium Chloride Carbon Dioxide BUN Creatinine Glucose POC Glucose 41 L 138 H 106 H Hemoglobin A1c Lactic Acid Calcium Magnesium Ferritin Total Bilirubin AST ALT Alkaline Phosphatase Lactate Dehydrogenase Total Creatine Kinase C-Reactive Protein Total Protein Albumin Triglycerides Arterial Blood Glucose Arterial Blood Ionized Calcium Ur Specific [place] Urine WBC (Auto) Vancomycin Trough Coronavirus (PCR) 12/10/20 12/10/20 12/11/20 17:34 23:25 04:06 WBC RBC Hgb Hct MCHC RDW Plt Count Lymph % (Auto) [place] % (Auto) Lymph # (Auto) [place] # (Auto) Baso # (Auto) Seg Neutrophils % Seg Neuts % (Manual) Lymphocytes % (Manual) Nucleated RBC % Seg Neutrophils # Seg Neutrophils # Man Lymphocytes # (Manual) D-Dimer ABG pH POC ABG pCO2 71.0 H POC ABG pO2 56.8 L ABG pO2 ABG HCO3 ABG O2 Saturation ABG Base Excess ABG Hemoglobin 10.1 L ABG Oxyhemoglobin 88.5 L ABG Sodium 132.3 L ABG Potassium ABG Chloride 91.0 L ABG Glucose 168 H Oxyhemoglobin Carboxyhemoglobin Sodium Potassium Chloride Carbon Dioxide BUN Creatinine Glucose POC Glucose 121 H 167 H Hemoglobin A1c Lactic Acid Calcium Magnesium Ferritin Total Bilirubin AST ALT Alkaline Phosphatase Lactate Dehydrogenase Total Creatine Kinase C-Reactive Protein Total Protein Albumin Triglycerides Arterial Blood Glucose 168 H Arterial Blood Ionized Calcium 4.1 L Ur Specific [place] Urine WBC (Auto) Vancomycin Trough Coronavirus (PCR) 12/11/20 12/11/20 12/11/20 05:21 11:44 15:40 WBC RBC Hgb Hct MCHC RDW Plt Count Lymph % (Auto) [place] % (Auto) Lymph # (Auto) [place] # (Auto) Baso # (Auto) Seg Neutrophils % Seg Neuts % (Manual) Lymphocytes % (Manual) Nucleated RBC % Seg Neutrophils # Seg Neutrophils # Man Lymphocytes # (Manual) D-Dimer ABG pH 7.454 H POC ABG pCO2 58.6 H POC ABG pO2 50.7 L ABG pO2 ABG HCO3 ABG O2 Saturation ABG Base Excess ABG Hemoglobin 10.1 L ABG Oxyhemoglobin 86.2 L ABG Sodium 131.2 L ABG Potassium ABG Chloride 92.0 L ABG Glucose 197 H Oxyhemoglobin Carboxyhemoglobin Sodium Potassium Chloride Carbon Dioxide BUN Creatinine Glucose POC Glucose 149 H 202 H Hemoglobin A1c Lactic Acid Calcium Magnesium Ferritin Total Bilirubin AST ALT Alkaline Phosphatase Lactate Dehydrogenase Total Creatine Kinase C-Reactive Protein Total Protein Albumin Triglycerides Arterial Blood Glucose 197 H Arterial Blood Ionized Calcium 4.2 L Ur Specific [place] Urine WBC (Auto) Vancomycin Trough Coronavirus (PCR) 12/11/20 12/11/20 12/12/20 17:09 23:16 05:09 WBC RBC Hgb Hct MCHC RDW Plt Count Lymph % (Auto) [place] % (Auto) Lymph # (Auto) [place] # (Auto) Baso # (Auto) Seg Neutrophils % Seg Neuts % (Manual) Lymphocytes % (Manual) Nucleated RBC % Seg Neutrophils # Seg Neutrophils # Man Lymphocytes # (Manual) D-Dimer ABG pH POC ABG pCO2 63.1 H POC ABG pO2 62.6 L ABG pO2 ABG HCO3 ABG O2 Saturation ABG Base Excess ABG Hemoglobin 10.3 L ABG Oxyhemoglobin ABG Sodium 130.3 L ABG Potassium 4.6 H ABG Chloride 92.0 L ABG Glucose 215 H Oxyhemoglobin Carboxyhemoglobin Sodium Potassium Chloride Carbon Dioxide BUN Creatinine Glucose POC Glucose 181 H 192 H Hemoglobin A1c Lactic Acid Calcium Magnesium Ferritin Total Bilirubin AST ALT Alkaline Phosphatase Lactate Dehydrogenase Total Creatine Kinase C-Reactive Protein Total Protein Albumin Triglycerides Arterial Blood Glucose 215 H Arterial Blood Ionized Calcium 4.4 L Ur Specific [place] Urine WBC (Auto) Vancomycin Trough Coronavirus (PCR) 12/12/20 12/12/20 12/12/20 05:16 05:47 11:41 WBC RBC Hgb Hct MCHC RDW Plt Count Lymph % (Auto) [place] % (Auto) Lymph # (Auto) [place] # (Auto) Baso # (Auto) Seg Neutrophils % Seg Neuts % (Manual) Lymphocytes % (Manual) Nucleated RBC % Seg Neutrophils # Seg Neutrophils # Man Lymphocytes # (Manual) D-Dimer ABG pH POC ABG pCO2 POC ABG pO2 ABG pO2 ABG HCO3 ABG O2 Saturation ABG Base Excess ABG Hemoglobin ABG Oxyhemoglobin ABG Sodium ABG Potassium ABG Chloride ABG Glucose Oxyhemoglobin Carboxyhemoglobin Sodium Potassium Chloride Carbon Dioxide BUN Creatinine Glucose POC Glucose 208 H 218 H Hemoglobin A1c Lactic Acid Calcium Magnesium Ferritin Total Bilirubin AST ALT Alkaline Phosphatase Lactate Dehydrogenase Total Creatine Kinase C-Reactive Protein Total Protein Albumin Triglycerides 150 H Arterial Blood Glucose Arterial Blood Ionized Calcium Ur Specific [place] Urine WBC (Auto) Vancomycin Trough Coronavirus (PCR) 12/12/20 12/12/20 12/13/20 17:05 23:18 03:36 WBC RBC Hgb Hct MCHC RDW Plt Count Lymph % (Auto) [place] % (Auto) Lymph # (Auto) [place] # (Auto) Baso # (Auto) Seg Neutrophils % Seg Neuts % (Manual) Lymphocytes % (Manual) Nucleated RBC % Seg Neutrophils # Seg Neutrophils # Man Lymphocytes # (Manual) D-Dimer ABG pH POC ABG pCO2 61.5 H POC ABG pO2 77.6 L ABG pO2 ABG HCO3 ABG O2 Saturation ABG Base Excess ABG Hemoglobin 10.2 L ABG Oxyhemoglobin ABG Sodium 127.5 L ABG Potassium ABG Chloride 91.0 L ABG Glucose 232 H Oxyhemoglobin Carboxyhemoglobin Sodium Potassium Chloride Carbon Dioxide BUN Creatinine Glucose POC Glucose 187 H 176 H Hemoglobin A1c Lactic Acid Calcium Magnesium Ferritin Total Bilirubin AST ALT Alkaline Phosphatase Lactate Dehydrogenase Total Creatine Kinase C-Reactive Protein Total Protein Albumin Triglycerides Arterial Blood Glucose 232 H Arterial Blood Ionized Calcium 4.2 L Ur Specific [place] Urine WBC (Auto) Vancomycin Trough Coronavirus (PCR) 12/13/20 12/13/20 12/13/20 05:13 10:00 11:30 WBC RBC 3.50 L Hgb 10.5 L Hct 31.9 L MCHC RDW Plt Count Lymph % (Auto) [place] % (Auto) Lymph # (Auto) [place] # (Auto) Baso # (Auto) Seg Neutrophils % Seg Neuts % (Manual) 96.0 H Lymphocytes % (Manual) Nucleated RBC % Seg Neutrophils # Seg Neutrophils # Man 9.2 H Lymphocytes # (Manual) 0.0 L D-Dimer ABG pH POC ABG pCO2 POC ABG pO2 ABG pO2 ABG HCO3 ABG O2 Saturation ABG Base Excess ABG Hemoglobin ABG Oxyhemoglobin ABG Sodium ABG Potassium ABG Chloride ABG Glucose Oxyhemoglobin Carboxyhemoglobin Sodium Potassium Chloride Carbon Dioxide BUN Creatinine Glucose POC Glucose 204 H Hemoglobin A1c Lactic Acid Calcium Magnesium Ferritin Total Bilirubin AST ALT Alkaline Phosphatase Lactate Dehydrogenase Total Creatine Kinase C-Reactive Protein Total Protein Albumin Triglycerides Arterial Blood Glucose Arterial Blood Ionized Calcium Ur Specific [place] Urine WBC (Auto) Vancomycin Trough Coronavirus (PCR) Positive A 12/13/20 12/13/20 12/13/20 11:30 12:01 18:04 WBC RBC Hgb Hct MCHC RDW Plt Count Lymph % (Auto) [place] % (Auto) Lymph # (Auto) [place] # (Auto) Baso # (Auto) Seg Neutrophils % Seg Neuts % (Manual) Lymphocytes % (Manual) Nucleated RBC % Seg Neutrophils # Seg Neutrophils # Man Lymphocytes # (Manual) D-Dimer ABG pH POC ABG pCO2 POC ABG pO2 ABG pO2 ABG HCO3 ABG O2 Saturation ABG Base Excess ABG Hemoglobin ABG Oxyhemoglobin ABG Sodium ABG Potassium ABG Chloride ABG Glucose Oxyhemoglobin Carboxyhemoglobin Sodium 132 L Potassium Chloride 90.1 L Carbon Dioxide 41 H* D BUN Creatinine 0.2 L Glucose 249 H POC Glucose 224 H 172 H Hemoglobin A1c Lactic Acid Calcium 7.4 L Magnesium Ferritin Total Bilirubin AST ALT 61 H Alkaline Phosphatase Lactate Dehydrogenase Total Creatine Kinase C-Reactive Protein Total Protein 5.7 L Albumin 2.3 L Triglycerides Arterial Blood Glucose Arterial Blood Ionized Calcium Ur Specific [place] Urine WBC (Auto) Vancomycin Trough Coronavirus (PCR) 12/13/20 12/14/20 12/14/20 23:37 04:05 04:35 WBC RBC 3.37 L Hgb 10.1 L Hct 30.7 L MCHC RDW 15.4 H Plt Count Lymph % (Auto) [place] % (Auto) Lymph # (Auto) [place] # (Auto) Baso # (Auto) Seg Neutrophils % Seg Neuts % (Manual) 93.0 H Lymphocytes % (Manual) 3.0 L Nucleated RBC % Seg Neutrophils # Seg Neutrophils # Man 7.8 H Lymphocytes # (Manual) 0.3 L D-Dimer ABG pH POC ABG pCO2 72.2 H POC ABG pO2 61.5 L ABG pO2 ABG HCO3 ABG O2 Saturation ABG Base Excess ABG Hemoglobin ABG Oxyhemoglobin 89.9 L ABG Sodium 131.4 L ABG Potassium ABG Chloride 91.0 L ABG Glucose 205 H Oxyhemoglobin Carboxyhemoglobin Sodium Potassium Chloride Carbon Dioxide BUN Creatinine Glucose POC Glucose 200 H Hemoglobin A1c Lactic Acid Calcium Magnesium Ferritin Total Bilirubin AST ALT Alkaline Phosphatase Lactate Dehydrogenase Total Creatine Kinase C-Reactive Protein Total Protein Albumin Triglycerides Arterial Blood Glucose 205 H Arterial Blood Ionized Calcium 4.3 L Ur Specific [place] Urine WBC (Auto) Vancomycin Trough Coronavirus (PCR) 12/14/20 12/14/20 12/14/20 04:35 05:12 11:31 WBC RBC Hgb Hct MCHC RDW Plt Count Lymph % (Auto) [place] % (Auto) Lymph # (Auto) [place] # (Auto) Baso # (Auto) Seg Neutrophils % Seg Neuts % (Manual) Lymphocytes % (Manual) Nucleated RBC % Seg Neutrophils # Seg Neutrophils # Man Lymphocytes # (Manual) D-Dimer ABG pH POC ABG pCO2 POC ABG pO2 ABG pO2 ABG HCO3 ABG O2 Saturation ABG Base Excess ABG Hemoglobin ABG Oxyhemoglobin ABG Sodium ABG Potassium ABG Chloride ABG Glucose Oxyhemoglobin Carboxyhemoglobin Sodium 135 L Potassium Chloride 92.5 L Carbon Dioxide 38 H BUN Creatinine 0.2 L Glucose 184 H POC Glucose 176 H 212 H Hemoglobin A1c Lactic Acid Calcium 7.7 L Magnesium Ferritin Total Bilirubin AST ALT Alkaline Phosphatase Lactate Dehydrogenase Total Creatine Kinase C-Reactive Protein Total Protein Albumin Triglycerides Arterial Blood Glucose Arterial Blood Ionized Calcium Ur Specific [place] Urine WBC (Auto) Vancomycin Trough Coronavirus (PCR) 12/14/20 12/14/20 12/15/20 17:30 23:30 03:19 WBC RBC Hgb Hct MCHC RDW Plt Count Lymph % (Auto) [place] % (Auto) Lymph # (Auto) [place] # (Auto) Baso # (Auto) Seg Neutrophils % Seg Neuts % (Manual) Lymphocytes % (Manual) Nucleated RBC % Seg Neutrophils # Seg Neutrophils # Man Lymphocytes # (Manual) D-Dimer ABG pH POC ABG pCO2 62.0 H POC ABG pO2 66.0 L ABG pO2 ABG HCO3 ABG O2 Saturation ABG Base Excess ABG Hemoglobin 10.3 L ABG Oxyhemoglobin ABG Sodium 130.5 L ABG Potassium ABG Chloride 91.0 L ABG Glucose 166 H Oxyhemoglobin Carboxyhemoglobin Sodium Potassium Chloride Carbon Dioxide BUN Creatinine Glucose POC Glucose 222 H 176 H Hemoglobin A1c Lactic Acid Calcium Magnesium Ferritin Total Bilirubin AST ALT Alkaline Phosphatase Lactate Dehydrogenase Total Creatine Kinase C-Reactive Protein Total Protein Albumin Triglycerides Arterial Blood Glucose 166 H Arterial Blood Ionized Calcium 4.4 L Ur Specific [place] Urine WBC (Auto) Vancomycin Trough Coronavirus (PCR) 12/15/20 12/15/20 12/15/20 05:24 11:39 17:30 WBC RBC Hgb Hct MCHC RDW Plt Count Lymph % (Auto) [place] % (Auto) Lymph # (Auto) [place] # (Auto) Baso # (Auto) Seg Neutrophils % Seg Neuts % (Manual) Lymphocytes % (Manual) Nucleated RBC % Seg Neutrophils # Seg Neutrophils # Man Lymphocytes # (Manual) D-Dimer ABG pH POC ABG pCO2 POC ABG pO2 ABG pO2 ABG HCO3 ABG O2 Saturation ABG Base Excess ABG Hemoglobin ABG Oxyhemoglobin ABG Sodium ABG Potassium ABG Chloride ABG Glucose Oxyhemoglobin Carboxyhemoglobin Sodium Potassium Chloride Carbon Dioxide BUN Creatinine Glucose POC Glucose 160 H 140 H 246 H Hemoglobin A1c Lactic Acid Calcium Magnesium Ferritin Total Bilirubin AST ALT Alkaline Phosphatase Lactate Dehydrogenase Total Creatine Kinase C-Reactive Protein Total Protein Albumin Triglycerides Arterial Blood Glucose Arterial Blood Ionized Calcium Ur Specific [place] Urine WBC (Auto) Vancomycin Trough Coronavirus (PCR) 12/15/20 12/16/20 12/16/20 23:42 03:54 04:46 WBC RBC 3.48 L Hgb 10.6 L Hct 31.5 L MCHC RDW 15.8 H Plt Count Lymph % (Auto) [place] % (Auto) Lymph # (Auto) [place] # (Auto) Baso # (Auto) Seg Neutrophils % Seg Neuts % (Manual) Lymphocytes % (Manual) Nucleated RBC % Seg Neutrophils # Seg Neutrophils # Man Lymphocytes # (Manual) D-Dimer ABG pH POC ABG pCO2 63.6 H POC ABG pO2 55.0 L ABG pO2 ABG HCO3 ABG O2 Saturation ABG Base Excess ABG Hemoglobin 11.1 L ABG Oxyhemoglobin 87.3 L ABG Sodium 130.7 L ABG Potassium ABG Chloride 89.0 L ABG Glucose 211 H Oxyhemoglobin Carboxyhemoglobin Sodium Potassium Chloride Carbon Dioxide BUN Creatinine Glucose POC Glucose 139 H Hemoglobin A1c Lactic Acid Calcium Magnesium Ferritin Total Bilirubin AST ALT Alkaline Phosphatase Lactate Dehydrogenase Total Creatine Kinase C-Reactive Protein Total Protein Albumin Triglycerides Arterial Blood Glucose 211 H Arterial Blood Ionized Calcium 4.3 L Ur Specific [place] Urine WBC (Auto) Vancomycin Trough Coronavirus (PCR) 12/16/20 12/16/20 12/16/20 04:46 05:34 11:40 WBC RBC Hgb Hct MCHC RDW Plt Count Lymph % (Auto) [place] % (Auto) Lymph # (Auto) [place] # (Auto) Baso # (Auto) Seg Neutrophils % Seg Neuts % (Manual) Lymphocytes % (Manual) Nucleated RBC % Seg Neutrophils # Seg Neutrophils # Man Lymphocytes # (Manual) D-Dimer ABG pH POC ABG pCO2 POC ABG pO2 ABG pO2 ABG HCO3 ABG O2 Saturation ABG Base Excess ABG Hemoglobin ABG Oxyhemoglobin ABG Sodium ABG Potassium ABG Chloride ABG Glucose Oxyhemoglobin Carboxyhemoglobin Sodium 134 L Potassium Chloride 89.7 L Carbon Dioxide 38 H BUN Creatinine < 0.2 L Glucose 203 H POC Glucose 155 H 239 H Hemoglobin A1c Lactic Acid Calcium 7.5 L Magnesium Ferritin Total Bilirubin AST ALT Alkaline Phosphatase Lactate Dehydrogenase Total Creatine Kinase C-Reactive Protein Total Protein Albumin Triglycerides Arterial Blood Glucose Arterial Blood Ionized Calcium Ur Specific [place] Urine WBC (Auto) Vancomycin Trough Coronavirus (PCR) 12/16/20 12/16/20 12/17/20 17:42 23:45 03:59 WBC RBC Hgb Hct MCHC RDW Plt Count Lymph % (Auto) [place] % (Auto) Lymph # (Auto) [place] # (Auto) Baso # (Auto) Seg Neutrophils % Seg Neuts % (Manual) Lymphocytes % (Manual) Nucleated RBC % Seg Neutrophils # Seg Neutrophils # Man Lymphocytes # (Manual) D-Dimer ABG pH POC ABG pCO2 71.9 H POC ABG pO2 57.5 L ABG pO2 ABG HCO3 ABG O2 Saturation ABG Base Excess ABG Hemoglobin 10.8 L ABG Oxyhemoglobin 87.7 L ABG Sodium 131.5 L ABG Potassium ABG Chloride 90.0 L ABG Glucose 199 H Oxyhemoglobin Carboxyhemoglobin Sodium Potassium Chloride Carbon Dioxide BUN Creatinine Glucose POC Glucose 228 H 187 H Hemoglobin A1c Lactic Acid Calcium Magnesium Ferritin Total Bilirubin AST ALT Alkaline Phosphatase Lactate Dehydrogenase Total Creatine Kinase C-Reactive Protein Total Protein Albumin Triglycerides Arterial Blood Glucose 199 H Arterial Blood Ionized Calcium 4.4 L Ur Specific [place] Urine WBC (Auto) Vancomycin Trough Coronavirus (PCR) 12/17/20 12/17/20 12/17/20 05:35 11:55 12:40 WBC RBC Hgb Hct MCHC RDW Plt Count Lymph % (Auto) [place] % (Auto) Lymph # (Auto) [place] # (Auto) Baso # (Auto) Seg Neutrophils % Seg Neuts % (Manual) Lymphocytes % (Manual) Nucleated RBC % Seg Neutrophils # Seg Neutrophils # Man Lymphocytes # (Manual) D-Dimer ABG pH POC ABG pCO2 POC ABG pO2 ABG pO2 ABG HCO3 ABG O2 Saturation ABG Base Excess ABG Hemoglobin ABG Oxyhemoglobin ABG Sodium ABG Potassium ABG Chloride ABG Glucose Oxyhemoglobin Carboxyhemoglobin Sodium Potassium Chloride 95.2 L Carbon Dioxide 41 H* BUN Creatinine 0.2 L Glucose 138 H POC Glucose 159 H 181 H Hemoglobin A1c Lactic Acid Calcium 7.3 L Magnesium Ferritin Total Bilirubin AST ALT Alkaline Phosphatase Lactate Dehydrogenase Total Creatine Kinase C-Reactive Protein Total Protein Albumin Triglycerides Arterial Blood Glucose Arterial Blood Ionized Calcium Ur Specific [place] Urine WBC (Auto) Vancomycin Trough Coronavirus (PCR) 12/17/20 12/17/20 12/17/20 17:25 17:25 17:51 WBC RBC Hgb Hct MCHC RDW Plt Count Lymph % (Auto) [place] % (Auto) Lymph # (Auto) [place] # (Auto) Baso # (Auto) Seg Neutrophils % Seg Neuts % (Manual) Lymphocytes % (Manual) Nucleated RBC % Seg Neutrophils # Seg Neutrophils # Man Lymphocytes # (Manual) D-Dimer ABG pH POC ABG pCO2 POC ABG pO2 ABG pO2 ABG HCO3 ABG O2 Saturation ABG Base Excess ABG Hemoglobin ABG Oxyhemoglobin ABG Sodium ABG Potassium ABG Chloride ABG Glucose Oxyhemoglobin Carboxyhemoglobin Sodium 134 L Potassium Chloride 89.6 L Carbon Dioxide 44 H* BUN Creatinine 0.2 L Glucose 280 H POC Glucose 260 H Hemoglobin A1c Lactic Acid Calcium 8.0 L Magnesium 1.60 L Ferritin Total Bilirubin AST ALT Alkaline Phosphatase Lactate Dehydrogenase Total Creatine Kinase 47 L C-Reactive Protein Total Protein 6.2 L Albumin 2.1 L Triglycerides Arterial Blood Glucose Arterial Blood Ionized Calcium Ur Specific [place] Urine WBC (Auto) Vancomycin Trough Coronavirus (PCR) 12/18/20 12/18/20 12/18/20 00:12 03:56 04:32 WBC RBC 2.88 L Hgb 8.6 L Hct 26.0 L MCHC RDW 15.6 H Plt Count Lymph % (Auto) [place] % (Auto) Lymph # (Auto) [place] # (Auto) Baso # (Auto) Seg Neutrophils % Seg Neuts % (Manual) Lymphocytes % (Manual) Nucleated RBC % Seg Neutrophils # Seg Neutrophils # Man Lymphocytes # (Manual) D-Dimer ABG pH POC ABG pCO2 78.0 H POC ABG pO2 52.3 L ABG pO2 ABG HCO3 ABG O2 Saturation ABG Base Excess ABG Hemoglobin 11.7 L ABG Oxyhemoglobin 84.9 L ABG Sodium 131.6 L ABG Potassium ABG Chloride 89.0 L ABG Glucose 191 H Oxyhemoglobin Carboxyhemoglobin Sodium Potassium Chloride Carbon Dioxide BUN Creatinine Glucose POC Glucose 197 H Hemoglobin A1c Lactic Acid Calcium Magnesium Ferritin Total Bilirubin AST ALT Alkaline Phosphatase Lactate Dehydrogenase Total Creatine Kinase C-Reactive Protein Total Protein Albumin Triglycerides Arterial Blood Glucose 191 H Arterial Blood Ionized Calcium 4.4 L Ur Specific [place] Urine WBC (Auto) Vancomycin Trough Coronavirus (PCR) 12/18/20 12/18/20 12/18/20 04:32 05:19 08:27 WBC RBC Hgb Hct MCHC RDW Plt Count Lymph % (Auto) [place] % (Auto) Lymph # (Auto) [place] # (Auto) Baso # (Auto) Seg Neutrophils % Seg Neuts % (Manual) Lymphocytes % (Manual) Nucleated RBC % Seg Neutrophils # Seg Neutrophils # Man Lymphocytes # (Manual) D-Dimer ABG pH POC ABG pCO2 POC ABG pO2 ABG pO2 ABG HCO3 ABG O2 Saturation ABG Base Excess ABG Hemoglobin ABG Oxyhemoglobin ABG Sodium ABG Potassium ABG Chloride ABG Glucose Oxyhemoglobin Carboxyhemoglobin Sodium 134 L 131 L Potassium Chloride 89.5 L 89.0 L Carbon Dioxide 43 H* 41 H* BUN Creatinine < 0.2 L < 0.2 L Glucose 182 H 176 H POC Glucose 165 H Hemoglobin A1c Lactic Acid Calcium 8.1 L 7.5 L Magnesium Ferritin Total Bilirubin AST ALT Alkaline Phosphatase Lactate Dehydrogenase Total Creatine Kinase C-Reactive Protein Total Protein Albumin Triglycerides Arterial Blood Glucose Arterial Blood Ionized Calcium Ur Specific [place] Urine WBC (Auto) Vancomycin Trough Coronavirus (PCR) 12/18/20 12/18/20 12/18/20 11:37 17:26 23:19 WBC RBC Hgb Hct MCHC RDW Plt Count Lymph % (Auto) [place] % (Auto) Lymph # (Auto) [place] # (Auto) Baso # (Auto) Seg Neutrophils % Seg Neuts % (Manual) Lymphocytes % (Manual) Nucleated RBC % Seg Neutrophils # Seg Neutrophils # Man Lymphocytes # (Manual) D-Dimer ABG pH POC ABG pCO2 POC ABG pO2 ABG pO2 ABG HCO3 ABG O2 Saturation ABG Base Excess ABG Hemoglobin ABG Oxyhemoglobin ABG Sodium ABG Potassium ABG Chloride ABG Glucose Oxyhemoglobin Carboxyhemoglobin Sodium Potassium Chloride Carbon Dioxide BUN Creatinine Glucose POC Glucose 174 H 243 H 212 H Hemoglobin A1c Lactic Acid Calcium Magnesium Ferritin Total Bilirubin AST ALT Alkaline Phosphatase Lactate Dehydrogenase Total Creatine Kinase C-Reactive Protein Total Protein Albumin Triglycerides Arterial Blood Glucose Arterial Blood Ionized Calcium Ur Specific [place] Urine WBC (Auto) Vancomycin Trough Coronavirus (PCR) 12/19/20 12/19/20 12/19/20 03:41 05:26 11:56 WBC RBC Hgb Hct MCHC RDW Plt Count Lymph % (Auto) [place] % (Auto) Lymph # (Auto) [place] # (Auto) Baso # (Auto) Seg Neutrophils % Seg Neuts % (Manual) Lymphocytes % (Manual) Nucleated RBC % Seg Neutrophils # Seg Neutrophils # Man Lymphocytes # (Manual) D-Dimer ABG pH POC ABG pCO2 75.4 H POC ABG pO2 50.7 L ABG pO2 ABG HCO3 ABG O2 Saturation ABG Base Excess ABG Hemoglobin 10.4 L ABG Oxyhemoglobin 84.2 L ABG Sodium 131.1 L ABG Potassium ABG Chloride 89.0 L ABG Glucose 194 H Oxyhemoglobin Carboxyhemoglobin 1.6 H Sodium Potassium Chloride Carbon Dioxide BUN Creatinine Glucose POC Glucose 166 H 173 H Hemoglobin A1c Lactic Acid Calcium Magnesium Ferritin Total Bilirubin AST ALT Alkaline Phosphatase Lactate Dehydrogenase Total Creatine Kinase C-Reactive Protein Total Protein Albumin Triglycerides Arterial Blood Glucose 194 H Arterial Blood Ionized Calcium 4.3 L Ur Specific [place] Urine WBC (Auto) Vancomycin Trough Coronavirus (PCR) 12/19/20 12/19/20 12/19/20 18:17 23:39 Unknown WBC RBC Hgb Hct MCHC RDW Plt Count Lymph % (Auto) [place] % (Auto) Lymph # (Auto) [place] # (Auto) Baso # (Auto) Seg Neutrophils % Seg Neuts % (Manual) Lymphocytes % (Manual) Nucleated RBC % Seg Neutrophils # Seg Neutrophils # Man Lymphocytes # (Manual) D-Dimer ABG pH POC ABG pCO2 POC ABG pO2 ABG pO2 ABG HCO3 ABG O2 Saturation ABG Base Excess ABG Hemoglobin ABG Oxyhemoglobin ABG Sodium ABG Potassium ABG Chloride ABG Glucose Oxyhemoglobin Carboxyhemoglobin Sodium 133 L Potassium Chloride 89.9 L Carbon Dioxide 39 H BUN Creatinine 0.2 L Glucose 197 H POC Glucose 212 H 133 H Hemoglobin A1c Lactic Acid Calcium 7.6 L Magnesium Ferritin Total Bilirubin AST ALT Alkaline Phosphatase Lactate Dehydrogenase Total Creatine Kinase C-Reactive Protein Total Protein Albumin Triglycerides Arterial Blood Glucose Arterial Blood Ionized Calcium Ur Specific [place] Urine WBC (Auto) Vancomycin Trough Coronavirus (PCR) 12/20/20 12/20/20 12/20/20 03:26 04:00 04:00 WBC RBC 3.21 L Hgb 9.6 L Hct 29.2 L MCHC RDW 15.8 H Plt Count Lymph % (Auto) [place] % (Auto) Lymph # (Auto) [place] # (Auto) Baso # (Auto) Seg Neutrophils % Seg Neuts % (Manual) Lymphocytes % (Manual) Nucleated RBC % Seg Neutrophils # Seg Neutrophils # Man Lymphocytes # (Manual) D-Dimer ABG pH POC ABG pCO2 74.2 H POC ABG pO2 51.3 L ABG pO2 ABG HCO3 ABG O2 Saturation ABG Base Excess ABG Hemoglobin 10.0 L ABG Oxyhemoglobin ABG Sodium 128.9 L ABG Potassium ABG Chloride 87.0 L ABG Glucose 173 H Oxyhemoglobin Carboxyhemoglobin Sodium 132 L Potassium Chloride 86.0 L Carbon Dioxide 43 H* BUN Creatinine 0.2 L Glucose 193 H POC Glucose Hemoglobin A1c Lactic Acid Calcium 7.6 L Magnesium Ferritin Total Bilirubin AST ALT Alkaline Phosphatase Lactate Dehydrogenase Total Creatine Kinase C-Reactive Protein Total Protein Albumin Triglycerides Arterial Blood Glucose 173 H Arterial Blood Ionized Calcium 4.1 L Ur Specific [place] Urine WBC (Auto) Vancomycin Trough Coronavirus (PCR) 12/20/20 12/20/20 12/20/20 05:05 11:47 18:18 WBC RBC Hgb Hct MCHC RDW Plt Count Lymph % (Auto) [place] % (Auto) Lymph # (Auto) [place] # (Auto) Baso # (Auto) Seg Neutrophils % Seg Neuts % (Manual) Lymphocytes % (Manual) Nucleated RBC % Seg Neutrophils # Seg Neutrophils # Man Lymphocytes # (Manual) D-Dimer ABG pH POC ABG pCO2 POC ABG pO2 ABG pO2 ABG HCO3 ABG O2 Saturation ABG Base Excess ABG Hemoglobin ABG Oxyhemoglobin ABG Sodium ABG Potassium ABG Chloride ABG Glucose Oxyhemoglobin Carboxyhemoglobin Sodium Potassium Chloride Carbon Dioxide BUN Creatinine Glucose POC Glucose 171 H 238 H 205 H Hemoglobin A1c Lactic Acid Calcium Magnesium Ferritin Total Bilirubin AST ALT Alkaline Phosphatase Lactate Dehydrogenase Total Creatine Kinase C-Reactive Protein Total Protein Albumin Triglycerides Arterial Blood Glucose Arterial Blood Ionized Calcium Ur Specific [place] Urine WBC (Auto) Vancomycin Trough Coronavirus (PCR) 12/20/20 12/21/20 12/21/20 23:41 03:30 05:37 WBC RBC Hgb Hct MCHC RDW Plt Count Lymph % (Auto) [place] % (Auto) Lymph # (Auto) [place] # (Auto) Baso # (Auto) Seg Neutrophils % Seg Neuts % (Manual) Lymphocytes % (Manual) Nucleated RBC % Seg Neutrophils # Seg Neutrophils # Man Lymphocytes # (Manual) D-Dimer ABG pH POC ABG pCO2 73.4 H POC ABG pO2 63.0 L ABG pO2 ABG HCO3 ABG O2 Saturation ABG Base Excess ABG Hemoglobin 10.1 L ABG Oxyhemoglobin ABG Sodium 130.5 L ABG Potassium ABG Chloride 89.0 L ABG Glucose 171 H Oxyhemoglobin Carboxyhemoglobin Sodium Potassium Chloride Carbon Dioxide BUN Creatinine Glucose POC Glucose 167 H 152 H Hemoglobin A1c Lactic Acid Calcium Magnesium Ferritin Total Bilirubin AST ALT Alkaline Phosphatase Lactate Dehydrogenase Total Creatine Kinase C-Reactive Protein Total Protein Albumin Triglycerides Arterial Blood Glucose 171 H Arterial Blood Ionized Calcium 4.2 L Ur Specific [place] Urine WBC (Auto) Vancomycin Trough Coronavirus (PCR) 12/21/20 12/21/20 12/21/20 09:57 12:54 18:00 WBC RBC Hgb Hct MCHC RDW Plt Count Lymph % (Auto) [place] % (Auto) Lymph # (Auto) [place] # (Auto) Baso # (Auto) Seg Neutrophils % Seg Neuts % (Manual) Lymphocytes % (Manual) Nucleated RBC % Seg Neutrophils # Seg Neutrophils # Man Lymphocytes # (Manual) D-Dimer ABG pH POC ABG pCO2 POC ABG pO2 ABG pO2 ABG HCO3 ABG O2 Saturation ABG Base Excess ABG Hemoglobin ABG Oxyhemoglobin ABG Sodium ABG Potassium ABG Chloride ABG Glucose Oxyhemoglobin Carboxyhemoglobin Sodium 132 L Potassium Chloride 87.7 L Carbon Dioxide 42 H* BUN Creatinine 0.2 L Glucose 207 H POC Glucose 199 H 217 H Hemoglobin A1c Lactic Acid Calcium 7.7 L Magnesium Ferritin Total Bilirubin AST ALT Alkaline Phosphatase Lactate Dehydrogenase Total Creatine Kinase C-Reactive Protein Total Protein Albumin Triglycerides Arterial Blood Glucose Arterial Blood Ionized Calcium Ur Specific [place] Urine WBC (Auto) Vancomycin Trough Coronavirus (PCR) 12/21/20 12/22/20 12/22/20 Unknown 00:02 04:08 WBC RBC Hgb Hct MCHC RDW Plt Count Lymph % (Auto) [place] % (Auto) Lymph # (Auto) [place] # (Auto) Baso # (Auto) Seg Neutrophils % Seg Neuts % (Manual) Lymphocytes % (Manual) Nucleated RBC % Seg Neutrophils # Seg Neutrophils # Man Lymphocytes # (Manual) D-Dimer ABG pH POC ABG pCO2 67.6 H POC ABG pO2 57.3 L ABG pO2 ABG HCO3 ABG O2 Saturation ABG Base Excess ABG Hemoglobin ABG Oxyhemoglobin ABG Sodium 130.9 L ABG Potassium ABG Chloride 92.0 L ABG Glucose 163 H Oxyhemoglobin Carboxyhemoglobin Sodium Potassium Chloride Carbon Dioxide BUN Creatinine Glucose POC Glucose 172 H Hemoglobin A1c Lactic Acid Calcium Magnesium Ferritin Total Bilirubin AST ALT Alkaline Phosphatase Lactate Dehydrogenase Total Creatine Kinase C-Reactive Protein Total Protein Albumin Triglycerides Arterial Blood Glucose 163 H Arterial Blood Ionized Calcium 4.2 L Ur Specific [place] Urine WBC (Auto) 172.0 H Vancomycin Trough Coronavirus (PCR) 12/22/20 12/22/20 12/22/20 05:19 11:33 17:20 WBC RBC Hgb Hct MCHC RDW Plt Count Lymph % (Auto) [place] % (Auto) Lymph # (Auto) [place] # (Auto) Baso # (Auto) Seg Neutrophils % Seg Neuts % (Manual) Lymphocytes % (Manual) Nucleated RBC % Seg Neutrophils # Seg Neutrophils # Man Lymphocytes # (Manual) D-Dimer ABG pH POC ABG pCO2 POC ABG pO2 ABG pO2 ABG HCO3 ABG O2 Saturation ABG Base Excess ABG Hemoglobin ABG Oxyhemoglobin ABG Sodium ABG Potassium ABG Chloride ABG Glucose Oxyhemoglobin Carboxyhemoglobin Sodium Potassium Chloride Carbon Dioxide BUN Creatinine Glucose POC Glucose 151 H 181 H 166 H Hemoglobin A1c Lactic Acid Calcium Magnesium Ferritin Total Bilirubin AST ALT Alkaline Phosphatase Lactate Dehydrogenase Total Creatine Kinase C-Reactive Protein Total Protein Albumin Triglycerides Arterial Blood Glucose Arterial Blood Ionized Calcium Ur Specific [place] Urine WBC (Auto) Vancomycin Trough Coronavirus (PCR) 12/22/20 12/23/20 12/23/20 23:25 05:19 05:32 WBC RBC Hgb Hct MCHC RDW Plt Count Lymph % (Auto) [place] % (Auto) Lymph # (Auto) [place] # (Auto) Baso # (Auto) Seg Neutrophils % Seg Neuts % (Manual) Lymphocytes % (Manual) Nucleated RBC % Seg Neutrophils # Seg Neutrophils # Man Lymphocytes # (Manual) D-Dimer ABG pH POC ABG pCO2 67.7 H POC ABG pO2 53.7 L ABG pO2 ABG HCO3 ABG O2 Saturation ABG Base Excess ABG Hemoglobin 9.6 L ABG Oxyhemoglobin ABG Sodium 130.2 L ABG Potassium ABG Chloride 88.0 L ABG Glucose 195 H Oxyhemoglobin Carboxyhemoglobin Sodium Potassium Chloride Carbon Dioxide BUN Creatinine Glucose POC Glucose 121 H 167 H Hemoglobin A1c Lactic Acid Calcium Magnesium Ferritin Total Bilirubin AST ALT Alkaline Phosphatase Lactate Dehydrogenase Total Creatine Kinase C-Reactive Protein Total Protein Albumin Triglycerides Arterial Blood Glucose 195 H Arterial Blood Ionized Calcium 4.1 L Ur Specific [place] Urine WBC (Auto) Vancomycin Trough Coronavirus (PCR) 12/23/20 12/23/20 12/23/20 06:07 11:21 18:10 WBC RBC Hgb Hct MCHC RDW Plt Count Lymph % (Auto) [place] % (Auto) Lymph # (Auto) [place] # (Auto) Baso # (Auto) Seg Neutrophils % Seg Neuts % (Manual) Lymphocytes % (Manual) Nucleated RBC % Seg Neutrophils # Seg Neutrophils # Man Lymphocytes # (Manual) D-Dimer ABG pH POC ABG pCO2 POC ABG pO2 ABG pO2 ABG HCO3 ABG O2 Saturation ABG Base Excess ABG Hemoglobin ABG Oxyhemoglobin ABG Sodium ABG Potassium ABG Chloride ABG Glucose Oxyhemoglobin Carboxyhemoglobin Sodium 135 L Potassium Chloride 89.3 L Carbon Dioxide 43 H* BUN Creatinine 0.2 L Glucose 193 H POC Glucose 155 H 178 H Hemoglobin A1c Lactic Acid Calcium 7.4 L Magnesium Ferritin Total Bilirubin AST ALT Alkaline Phosphatase Lactate Dehydrogenase Total Creatine Kinase C-Reactive Protein Total Protein Albumin Triglycerides Arterial Blood Glucose Arterial Blood Ionized Calcium Ur Specific [place] Urine WBC (Auto) Vancomycin Trough Coronavirus (PCR) 12/23/20 12/24/20 12/24/20 23:21 04:49 05:00 WBC RBC Hgb Hct MCHC RDW Plt Count Lymph % (Auto) [place] % (Auto) Lymph # (Auto) [place] # (Auto) Baso # (Auto) Seg Neutrophils % Seg Neuts % (Manual) Lymphocytes % (Manual) Nucleated RBC % Seg Neutrophils # Seg Neutrophils # Man Lymphocytes # (Manual) D-Dimer ABG pH POC ABG pCO2 75.5 H POC ABG pO2 50.5 L ABG pO2 ABG HCO3 ABG O2 Saturation ABG Base Excess ABG Hemoglobin 8.8 L ABG Oxyhemoglobin 86.3 L ABG Sodium 131.6 L ABG Potassium ABG Chloride 88.0 L ABG Glucose 186 H Oxyhemoglobin Carboxyhemoglobin 2.1 H Sodium Potassium Chloride Carbon Dioxide BUN Creatinine Glucose POC Glucose 126 H Hemoglobin A1c Lactic Acid Calcium Magnesium Ferritin Total Bilirubin AST ALT Alkaline Phosphatase Lactate Dehydrogenase Total Creatine Kinase C-Reactive Protein Total Protein Albumin Triglycerides 486 H Arterial Blood Glucose 186 H Arterial Blood Ionized Calcium 4.0 L Ur Specific [place] Urine WBC (Auto) Vancomycin Trough Coronavirus (PCR) 12/24/20 12/24/20 12/24/20 05:19 11:57 16:44 WBC RBC Hgb Hct MCHC RDW Plt Count Lymph % (Auto) [place] % (Auto) Lymph # (Auto) [place] # (Auto) Baso # (Auto) Seg Neutrophils % Seg Neuts % (Manual) Lymphocytes % (Manual) Nucleated RBC % Seg Neutrophils # Seg Neutrophils # Man Lymphocytes # (Manual) D-Dimer ABG pH POC ABG pCO2 POC ABG pO2 ABG pO2 ABG HCO3 ABG O2 Saturation ABG Base Excess ABG Hemoglobin ABG Oxyhemoglobin ABG Sodium ABG Potassium ABG Chloride ABG Glucose Oxyhemoglobin Carboxyhemoglobin Sodium Potassium Chloride Carbon Dioxide BUN Creatinine Glucose POC Glucose 162 H 163 H 191 H Hemoglobin A1c Lactic Acid Calcium Magnesium Ferritin Total Bilirubin AST ALT Alkaline Phosphatase Lactate Dehydrogenase Total Creatine Kinase C-Reactive Protein Total Protein Albumin Triglycerides Arterial Blood Glucose Arterial Blood Ionized Calcium Ur Specific [place] Urine WBC (Auto) Vancomycin Trough Coronavirus (PCR) 12/24/20 12/24/20 12/24/20 17:28 18:57 20:48 WBC 19.1 H RBC 2.91 L Hgb 8.3 L Hct 26.0 L MCHC RDW 16.0 H Plt Count Lymph % (Auto) [place] % (Auto) Lymph # (Auto) [place] # (Auto) Baso # (Auto) Seg Neutrophils % Seg Neuts % (Manual) 92.0 H Lymphocytes % (Manual) 5.0 L Nucleated RBC % Seg Neutrophils # Seg Neutrophils # Man 17.6 H Lymphocytes # (Manual) 1.0 L D-Dimer ABG pH 7.250 L POC ABG pCO2 102.6 H 82.1 H POC ABG pO2 42.4 L 38.6 L ABG pO2 ABG HCO3 ABG O2 Saturation ABG Base Excess ABG Hemoglobin 9.0 L 9.3 L ABG Oxyhemoglobin 69.9 L 70.8 L ABG Sodium 131.1 L 130.7 L ABG Potassium ABG Chloride 89.0 L 89.0 L ABG Glucose 211 H 226 H Oxyhemoglobin Carboxyhemoglobin 1.7 H 1.8 H Sodium Potassium Chloride Carbon Dioxide BUN Creatinine Glucose POC Glucose Hemoglobin A1c Lactic Acid Calcium Magnesium Ferritin Total Bilirubin AST ALT Alkaline Phosphatase Lactate Dehydrogenase Total Creatine Kinase C-Reactive Protein Total Protein Albumin Triglycerides Arterial Blood Glucose 211 H 226 H Arterial Blood Ionized Calcium 4.0 L 4.1 L Ur Specific [place] Urine WBC (Auto) Vancomycin Trough Coronavirus (PCR) 12/24/20 12/25/20 12/25/20 23:31 04:04 06:31 WBC RBC Hgb Hct MCHC RDW Plt Count Lymph % (Auto) [place] % (Auto) Lymph # (Auto) [place] # (Auto) Baso # (Auto) Seg Neutrophils % Seg Neuts % (Manual) Lymphocytes % (Manual) Nucleated RBC % Seg Neutrophils # Seg Neutrophils # Man Lymphocytes # (Manual) D-Dimer ABG pH POC ABG pCO2 75.6 H POC ABG pO2 43.3 L ABG pO2 ABG HCO3 ABG O2 Saturation ABG Base Excess ABG Hemoglobin 10.6 L ABG Oxyhemoglobin 77.6 L ABG Sodium 131.4 L ABG Potassium ABG Chloride 90.0 L ABG Glucose 185 H Oxyhemoglobin Carboxyhemoglobin 2.4 H Sodium Potassium Chloride Carbon Dioxide BUN Creatinine Glucose POC Glucose 181 H 153 H Hemoglobin A1c Lactic Acid Calcium Magnesium Ferritin Total Bilirubin AST ALT Alkaline Phosphatase Lactate Dehydrogenase Total Creatine Kinase C-Reactive Protein Total Protein Albumin Triglycerides Arterial Blood Glucose 185 H Arterial Blood Ionized Calcium 4.1 L Ur Specific [place] Urine WBC (Auto) Vancomycin Trough Coronavirus (PCR) 12/25/20 12/25/20 12/25/20 11:17 11:17 11:17 WBC 19.6 H RBC 2.82 L Hgb 8.1 L Hct 25.2 L MCHC RDW 16.2 H Plt Count Lymph % (Auto) [place] % (Auto) Lymph # (Auto) [place] # (Auto) Baso # (Auto) Seg Neutrophils % Seg Neuts % (Manual) Lymphocytes % (Manual) Nucleated RBC % Seg Neutrophils # Seg Neutrophils # Man Lymphocytes # (Manual) D-Dimer ABG pH POC ABG pCO2 POC ABG pO2 ABG pO2 ABG HCO3 ABG O2 Saturation ABG Base Excess ABG Hemoglobin ABG Oxyhemoglobin ABG Sodium ABG Potassium ABG Chloride ABG Glucose Oxyhemoglobin Carboxyhemoglobin Sodium 136 L Potassium Chloride 92.3 L Carbon Dioxide 44 H* BUN Creatinine 0.3 L Glucose 240 H POC Glucose Hemoglobin A1c Lactic Acid Calcium 7.3 L Magnesium Ferritin Total Bilirubin AST ALT Alkaline Phosphatase Lactate Dehydrogenase Total Creatine Kinase C-Reactive Protein Total Protein Albumin Triglycerides 328 H Arterial Blood Glucose Arterial Blood Ionized Calcium Ur Specific [place] Urine WBC (Auto) Vancomycin Trough Coronavirus (PCR) 12/25/20 12/25/20 12/25/20 12:07 17:52 21:49 WBC RBC Hgb Hct MCHC RDW Plt Count Lymph % (Auto) [place] % (Auto) Lymph # (Auto) [place] # (Auto) Baso # (Auto) Seg Neutrophils % Seg Neuts % (Manual) Lymphocytes % (Manual) Nucleated RBC % Seg Neutrophils # Seg Neutrophils # Man Lymphocytes # (Manual) D-Dimer ABG pH POC ABG pCO2 POC ABG pO2 ABG pO2 ABG HCO3 ABG O2 Saturation ABG Base Excess ABG Hemoglobin ABG Oxyhemoglobin ABG Sodium ABG Potassium ABG Chloride ABG Glucose Oxyhemoglobin Carboxyhemoglobin Sodium Potassium Chloride Carbon Dioxide BUN Creatinine Glucose POC Glucose 210 H 188 H 152 H Hemoglobin A1c Lactic Acid Calcium Magnesium Ferritin Total Bilirubin AST ALT Alkaline Phosphatase Lactate Dehydrogenase Total Creatine Kinase C-Reactive Protein Total Protein Albumin Triglycerides Arterial Blood Glucose Arterial Blood Ionized Calcium Ur Specific [place] Urine WBC (Auto) Vancomycin Trough Coronavirus (PCR) 12/25/20 12/26/20 12/26/20 23:47 04:00 05:20 WBC RBC Hgb Hct MCHC RDW Plt Count Lymph % (Auto) [place] % (Auto) Lymph # (Auto) [place] # (Auto) Baso # (Auto) Seg Neutrophils % Seg Neuts % (Manual) Lymphocytes % (Manual) Nucleated RBC % Seg Neutrophils # Seg Neutrophils # Man Lymphocytes # (Manual) D-Dimer ABG pH POC ABG pCO2 73.4 H POC ABG pO2 58.8 L ABG pO2 ABG HCO3 ABG O2 Saturation ABG Base Excess ABG Hemoglobin 7.4 L ABG Oxyhemoglobin ABG Sodium 135.2 L ABG Potassium ABG Chloride 96.0 L ABG Glucose 164 H Oxyhemoglobin Carboxyhemoglobin Sodium Potassium Chloride Carbon Dioxide BUN Creatinine Glucose POC Glucose 138 H 147 H Hemoglobin A1c Lactic Acid Calcium Magnesium Ferritin Total Bilirubin AST ALT Alkaline Phosphatase Lactate Dehydrogenase Total Creatine Kinase C-Reactive Protein Total Protein Albumin Triglycerides Arterial Blood Glucose 164 H Arterial Blood Ionized Calcium 4.1 L Ur Specific [place] Urine WBC (Auto) Vancomycin Trough Coronavirus (PCR) 12/26/20 12/26/20 12/26/20 05:26 05:26 05:26 WBC 16.2 H RBC 2.75 L Hgb 7.8 L Hct 24.1 L MCHC RDW 16.3 H Plt Count 451 H Lymph % (Auto) [place] % (Auto) Lymph # (Auto) [place] # (Auto) Baso # (Auto) Seg Neutrophils % Seg Neuts % (Manual) 87.0 H Lymphocytes % (Manual) Nucleated RBC % 5.0 H Seg Neutrophils # Seg Neutrophils # Man 14.1 H Lymphocytes # (Manual) 0.0 L D-Dimer ABG pH POC ABG pCO2 POC ABG pO2 ABG pO2 ABG HCO3 ABG O2 Saturation ABG Base Excess ABG Hemoglobin ABG Oxyhemoglobin ABG Sodium ABG Potassium ABG Chloride ABG Glucose Oxyhemoglobin Carboxyhemoglobin Sodium Potassium Chloride 95.2 L Carbon Dioxide 44 H* BUN Creatinine 0.2 L Glucose 155 H POC Glucose Hemoglobin A1c Lactic Acid Calcium 7.4 L Magnesium Ferritin Total Bilirubin AST ALT Alkaline Phosphatase Lactate Dehydrogenase Total Creatine Kinase C-Reactive Protein Total Protein 6.0 L Albumin 1.6 L Triglycerides 307 H Arterial Blood Glucose Arterial Blood Ionized Calcium Ur Specific [place] Urine WBC (Auto) Vancomycin Trough Coronavirus (PCR) 12/26/20 12/26/20 12/26/20 11:21 17:26 23:22 WBC RBC Hgb Hct MCHC RDW Plt Count Lymph % (Auto) [place] % (Auto) Lymph # (Auto) [place] # (Auto) Baso # (Auto) Seg Neutrophils % Seg Neuts % (Manual) Lymphocytes % (Manual) Nucleated RBC % Seg Neutrophils # Seg Neutrophils # Man Lymphocytes # (Manual) D-Dimer ABG pH POC ABG pCO2 POC ABG pO2 ABG pO2 ABG HCO3 ABG O2 Saturation ABG Base Excess ABG Hemoglobin ABG Oxyhemoglobin ABG Sodium ABG Potassium ABG Chloride ABG Glucose Oxyhemoglobin Carboxyhemoglobin Sodium Potassium Chloride Carbon Dioxide BUN Creatinine Glucose POC Glucose 127 H 134 H 125 H Hemoglobin A1c Lactic Acid Calcium Magnesium Ferritin Total Bilirubin AST ALT Alkaline Phosphatase Lactate Dehydrogenase Total Creatine Kinase C-Reactive Protein Total Protein Albumin Triglycerides Arterial Blood Glucose Arterial Blood Ionized Calcium Ur Specific [place] Urine WBC (Auto) Vancomycin Trough Coronavirus (PCR) 12/27/20 12/27/2021 03:19 05:17 10:52 WBC RBC Hgb Hct MCHC RDW Plt Count Lymph % (Auto) [place] % (Auto) Lymph # (Auto) [place] # (Auto) Baso # (Auto) Seg Neutrophils % Seg Neuts % (Manual) Lymphocytes % (Manual) Nucleated RBC % Seg Neutrophils # Seg Neutrophils # Man Lymphocytes # (Manual) D-Dimer ABG pH POC ABG pCO2 75.0 H POC ABG pO2 74.3 L ABG pO2 ABG HCO3 ABG O2 Saturation ABG Base Excess ABG Hemoglobin 7.3 L ABG Oxyhemoglobin 92.8 L ABG Sodium 135.6 L ABG Potassium ABG Chloride ABG Glucose 151 H Oxyhemoglobin Carboxyhemoglobin 2.0 H Sodium 136 L Potassium Chloride 96.8 L Carbon Dioxide 38 H BUN Creatinine 0.2 L Glucose 139 H POC Glucose 121 H Hemoglobin A1c Lactic Acid Calcium 7.0 L Magnesium Ferritin Total Bilirubin AST 52 H ALT Alkaline Phosphatase Lactate Dehydrogenase Total Creatine Kinase C-Reactive Protein Total Protein 4.7 L D Albumin 1.1 L Triglycerides Arterial Blood Glucose 151 H Arterial Blood Ionized Calcium 4.2 L Ur Specific [place] Urine WBC (Auto) Vancomycin Trough Coronavirus (PCR) 12/27/20 12/27/20 12/27/20 12:02 14:09 17:36 WBC 14.4 H RBC 2.82 L Hgb 8.0 L Hct 25.6 L MCHC 31 L RDW 16.4 H Plt Count 442 H Lymph % (Auto) [place] % (Auto) Lymph # (Auto) [place] # (Auto) Baso # (Auto) Seg Neutrophils % Seg Neuts % (Manual) 36.0 L Lymphocytes % (Manual) 7.0 L Nucleated RBC % 18.0 H Seg Neutrophils # Seg Neutrophils # Man Lymphocytes # (Manual) 1.0 L D-Dimer ABG pH POC ABG pCO2 POC ABG pO2 ABG pO2 ABG HCO3 ABG O2 Saturation ABG Base Excess ABG Hemoglobin ABG Oxyhemoglobin ABG Sodium ABG Potassium ABG Chloride ABG Glucose Oxyhemoglobin Carboxyhemoglobin Sodium Potassium Chloride Carbon Dioxide BUN Creatinine Glucose POC Glucose 126 H 107 H Hemoglobin A1c Lactic Acid Calcium Magnesium Ferritin Total Bilirubin AST ALT Alkaline Phosphatase Lactate Dehydrogenase Total Creatine Kinase C-Reactive Protein Total Protein Albumin Triglycerides Arterial Blood Glucose Arterial Blood Ionized Calcium Ur Specific [place] Urine WBC (Auto) Vancomycin Trough Coronavirus (PCR) 12/27/20 12/28/20 12/28/20 22:58 03:48 05:45 WBC 13.4 H RBC 2.78 L Hgb 7.9 L Hct 25.1 L MCHC RDW 16.4 H Plt Count 484 H Lymph % (Auto) [place] % (Auto) Lymph # (Auto) [place] # (Auto) Baso # (Auto) Seg Neutrophils % Seg Neuts % (Manual) 86.0 H Lymphocytes % (Manual) 2.0 L Nucleated RBC % 2.0 H Seg Neutrophils # Seg Neutrophils # Man 11.5 H Lymphocytes # (Manual) 0.3 L D-Dimer ABG pH POC ABG pCO2 73.1 H POC ABG pO2 66.2 L ABG pO2 ABG HCO3 ABG O2 Saturation ABG Base Excess ABG Hemoglobin 8.9 L ABG Oxyhemoglobin 90.3 L ABG Sodium ABG Potassium 3.3 L ABG Chloride ABG Glucose 107 H Oxyhemoglobin Carboxyhemoglobin 1.6 H Sodium Potassium Chloride Carbon Dioxide BUN Creatinine Glucose POC Glucose 130 H Hemoglobin A1c Lactic Acid Calcium Magnesium Ferritin Total Bilirubin AST ALT Alkaline Phosphatase Lactate Dehydrogenase Total Creatine Kinase C-Reactive Protein Total Protein Albumin Triglycerides Arterial Blood Glucose 107 H Arterial Blood Ionized Calcium 4.4 L Ur Specific [place] Urine WBC (Auto) Vancomycin Trough Coronavirus (PCR) 12/28/20 12/29/20 12/29/20 05:45 04:00 04:00 WBC 18.0 H RBC 2.80 L Hgb 8.0 L Hct 25.3 L MCHC RDW 17.1 H Plt Count 486 H Lymph % (Auto) [place] % (Auto) Lymph # (Auto) [place] # (Auto) Baso # (Auto) Seg Neutrophils % Seg Neuts % (Manual) 83.0 H Lymphocytes % (Manual) 10.0 L Nucleated RBC % 2.0 H Seg Neutrophils # Seg Neutrophils # Man 14.9 H Lymphocytes # (Manual) D-Dimer ABG pH POC ABG pCO2 POC ABG pO2 ABG pO2 ABG HCO3 ABG O2 Saturation ABG Base Excess ABG Hemoglobin ABG Oxyhemoglobin ABG Sodium ABG Potassium ABG Chloride ABG Glucose Oxyhemoglobin Carboxyhemoglobin Sodium Potassium 3.2 L D Chloride Carbon Dioxide 41 H* 38 H BUN Creatinine 0.3 L 0.3 L Glucose 135 H POC Glucose Hemoglobin A1c Lactic Acid Calcium 7.3 L 7.5 L Magnesium Ferritin Total Bilirubin AST ALT Alkaline Phosphatase Lactate Dehydrogenase Total Creatine Kinase C-Reactive Protein Total Protein 6.0 L D 6.1 L Albumin 1.4 L 1.5 L Triglycerides 284 H Arterial Blood Glucose Arterial Blood Ionized Calcium Ur Specific [place] Urine WBC (Auto) Vancomycin Trough Coronavirus (PCR) 12/29/20 12/29/20 12/29/20 04:00 05:42 11:54 WBC RBC Hgb Hct MCHC RDW Plt Count Lymph % (Auto) [place] % (Auto) Lymph # (Auto) [place] # (Auto) Baso # (Auto) Seg Neutrophils % Seg Neuts % (Manual) Lymphocytes % (Manual) Nucleated RBC % Seg Neutrophils # Seg Neutrophils # Man Lymphocytes # (Manual) D-Dimer ABG pH 7.319 L POC ABG pCO2 71.0 H POC ABG pO2 65.2 L ABG pO2 ABG HCO3 ABG O2 Saturation ABG Base Excess ABG Hemoglobin 8.7 L ABG Oxyhemoglobin ABG Sodium ABG Potassium ABG Chloride ABG Glucose 140 H Oxyhemoglobin Carboxyhemoglobin Sodium Potassium Chloride Carbon Dioxide BUN Creatinine Glucose POC Glucose 126 H 128 H Hemoglobin A1c Lactic Acid Calcium Magnesium Ferritin Total Bilirubin AST ALT Alkaline Phosphatase Lactate Dehydrogenase Total Creatine Kinase C-Reactive Protein Total Protein Albumin Triglycerides Arterial Blood Glucose 140 H Arterial Blood Ionized Calcium 4.3 L Ur Specific [place] Urine WBC (Auto) Vancomycin Trough Coronavirus (PCR) 12/29/20 12/29/20 12/30/20 17:54 23:47 04:00 WBC 15.0 H RBC 2.89 L Hgb 8.2 L Hct 26.1 L MCHC RDW 17.3 H Plt Count Lymph % (Auto) 9.2 L [place] % (Auto) Lymph # (Auto) [place] # (Auto) Baso # (Auto) Seg Neutrophils % 87.0 H Seg Neuts % (Manual) Lymphocytes % (Manual) Nucleated RBC % Seg Neutrophils # 13.1 H Seg Neutrophils # Man Lymphocytes # (Manual) D-Dimer ABG pH POC ABG pCO2 POC ABG pO2 ABG pO2 ABG HCO3 ABG O2 Saturation ABG Base Excess ABG Hemoglobin ABG Oxyhemoglobin ABG Sodium ABG Potassium ABG Chloride ABG Glucose Oxyhemoglobin Carboxyhemoglobin Sodium Potassium Chloride Carbon Dioxide BUN Creatinine Glucose POC Glucose 155 H 139 H Hemoglobin A1c Lactic Acid Calcium Magnesium Ferritin Total Bilirubin AST ALT Alkaline Phosphatase Lactate Dehydrogenase Total Creatine Kinase C-Reactive Protein Total Protein Albumin Triglycerides Arterial Blood Glucose Arterial Blood Ionized Calcium Ur Specific [place] Urine WBC (Auto) Vancomycin Trough Coronavirus (PCR) 12/30/20 12/30/20 12/30/20 04:00 04:14 05:25 WBC RBC Hgb Hct MCHC RDW Plt Count Lymph % (Auto) [place] % (Auto) Lymph # (Auto) [place] # (Auto) Baso # (Auto) Seg Neutrophils % Seg Neuts % (Manual) Lymphocytes % (Manual) Nucleated RBC % Seg Neutrophils # Seg Neutrophils # Man Lymphocytes # (Manual) D-Dimer ABG pH POC ABG pCO2 69.3 H POC ABG pO2 61.3 L ABG pO2 ABG HCO3 ABG O2 Saturation ABG Base Excess ABG Hemoglobin 9.1 L ABG Oxyhemoglobin 88.0 L ABG Sodium ABG Potassium ABG Chloride ABG Glucose 159 H Oxyhemoglobin Carboxyhemoglobin 1.8 H Sodium Potassium Chloride Carbon Dioxide 37 H BUN Creatinine 0.3 L Glucose 156 H POC Glucose 141 H Hemoglobin A1c Lactic Acid Calcium 7.6 L Magnesium Ferritin Total Bilirubin AST ALT Alkaline Phosphatase Lactate Dehydrogenase Total Creatine Kinase C-Reactive Protein Total Protein 6.0 L Albumin 1.4 L Triglycerides Arterial Blood Glucose 159 H Arterial Blood Ionized Calcium 4.4 L Ur Specific [place] Urine WBC (Auto) Vancomycin Trough Coronavirus (PCR) 12/30/20 12/30/20 12/30/20 12:18 17:37 23:55 WBC RBC Hgb Hct MCHC RDW Plt Count Lymph % (Auto) [place] % (Auto) Lymph # (Auto) [place] # (Auto) Baso # (Auto) Seg Neutrophils % Seg Neuts % (Manual) Lymphocytes % (Manual) Nucleated RBC % Seg Neutrophils # Seg Neutrophils # Man Lymphocytes # (Manual) D-Dimer ABG pH POC ABG pCO2 POC ABG pO2 ABG pO2 ABG HCO3 ABG O2 Saturation ABG Base Excess ABG Hemoglobin ABG Oxyhemoglobin ABG Sodium ABG Potassium ABG Chloride ABG Glucose Oxyhemoglobin Carboxyhemoglobin Sodium Potassium Chloride Carbon Dioxide BUN Creatinine Glucose POC Glucose 147 H 167 H 141 H Hemoglobin A1c Lactic Acid Calcium Magnesium Ferritin Total Bilirubin AST ALT Alkaline Phosphatase Lactate Dehydrogenase Total Creatine Kinase C-Reactive Protein Total Protein Albumin Triglycerides Arterial Blood Glucose Arterial Blood Ionized Calcium Ur Specific [place] Urine WBC (Auto) Vancomycin Trough Coronavirus (PCR) 12/31/20 12/31/20 12/31/20 04:00 05:32 06:19 WBC RBC Hgb Hct MCHC RDW Plt Count Lymph % (Auto) [place] % (Auto) Lymph # (Auto) [place] # (Auto) Baso # (Auto) Seg Neutrophils % Seg Neuts % (Manual) Lymphocytes % (Manual) Nucleated RBC % Seg Neutrophils # Seg Neutrophils # Man Lymphocytes # (Manual) D-Dimer ABG pH 7.316 L POC ABG pCO2 POC ABG pO2 ABG pO2 56.9 L ABG HCO3 38.0 H ABG O2 Saturation 90.4 L ABG Base Excess 11.1 H ABG Hemoglobin 5.1 L ABG Oxyhemoglobin ABG Sodium ABG Potassium ABG Chloride ABG Glucose Oxyhemoglobin 87.7 L Carboxyhemoglobin Sodium Potassium Chloride Carbon Dioxide 37 H BUN Creatinine 0.3 L Glucose 152 H POC Glucose 158 H Hemoglobin A1c Lactic Acid Calcium 7.3 L Magnesium Ferritin Total Bilirubin AST ALT Alkaline Phosphatase Lactate Dehydrogenase Total Creatine Kinase C-Reactive Protein Total Protein 6.1 L Albumin 1.4 L Triglycerides Arterial Blood Glucose Arterial Blood Ionized Calcium Ur Specific [place] Urine WBC (Auto) Vancomycin Trough Coronavirus (PCR) 12/31/20 12/31/20 12/31/20 12:22 18:17 23:37 WBC RBC Hgb Hct MCHC RDW Plt Count Lymph % (Auto) [place] % (Auto) Lymph # (Auto) [place] # (Auto) Baso # (Auto) Seg Neutrophils % Seg Neuts % (Manual) Lymphocytes % (Manual) Nucleated RBC % Seg Neutrophils # Seg Neutrophils # Man Lymphocytes # (Manual) D-Dimer ABG pH POC ABG pCO2 POC ABG pO2 ABG pO2 ABG HCO3 ABG O2 Saturation ABG Base Excess ABG Hemoglobin ABG Oxyhemoglobin ABG Sodium ABG Potassium ABG Chloride ABG Glucose Oxyhemoglobin Carboxyhemoglobin Sodium Potassium Chloride Carbon Dioxide BUN Creatinine Glucose POC Glucose 131 H 136 H 139 H Hemoglobin A1c Lactic Acid Calcium Magnesium Ferritin Total Bilirubin AST ALT Alkaline Phosphatase Lactate Dehydrogenase Total Creatine Kinase C-Reactive Protein Total Protein Albumin Triglycerides Arterial Blood Glucose Arterial Blood Ionized Calcium Ur Specific [place] Urine WBC (Auto) Vancomycin Trough Coronavirus (PCR) 12/31/20 01/01/21 01/01/21 Unknown 04:50 05:10 WBC 16.2 H RBC 2.89 L Hgb 8.0 L Hct 25.9 L MCHC 31 L RDW 18.2 H Plt Count 458 H Lymph % (Auto) [place] % (Auto) Lymph # (Auto) [place] # (Auto) Baso # (Auto) Seg Neutrophils % Seg Neuts % (Manual) 96.0 H Lymphocytes % (Manual) 3.0 L Nucleated RBC % 3.0 H Seg Neutrophils # Seg Neutrophils # Man 15.6 H Lymphocytes # (Manual) 0.5 L D-Dimer ABG pH 7.268 L POC ABG pCO2 POC ABG pO2 ABG pO2 56.9 L ABG HCO3 38.8 H ABG O2 Saturation 85.5 L ABG Base Excess 10.7 H ABG Hemoglobin 6.4 L ABG Oxyhemoglobin ABG Sodium ABG Potassium ABG Chloride ABG Glucose Oxyhemoglobin 82.8 L Carboxyhemoglobin Sodium Potassium Chloride Carbon Dioxide BUN Creatinine Glucose POC Glucose 143 H Hemoglobin A1c Lactic Acid Calcium Magnesium Ferritin Total Bilirubin AST ALT Alkaline Phosphatase Lactate Dehydrogenase Total Creatine Kinase C-Reactive Protein Total Protein Albumin Triglycerides Arterial Blood Glucose Arterial Blood Ionized Calcium Ur Specific [place] Urine WBC (Auto) Vancomycin Trough Coronavirus (PCR) 01/01/21 01/01/21 01/01/21 11:29 17:00 17:33 WBC 16.1 H RBC 2.68 L Hgb 7.8 L Hct 24.5 L MCHC RDW 18.9 H Plt Count Lymph % (Auto) [place] % (Auto) Lymph # (Auto) [place] # (Auto) Baso # (Auto) Seg Neutrophils % Seg Neuts % (Manual) Lymphocytes % (Manual) 9.0 L Nucleated RBC % 2.0 H Seg Neutrophils # Seg Neutrophils # Man Lymphocytes # (Manual) D-Dimer ABG pH POC ABG pCO2 POC ABG pO2 ABG pO2 ABG HCO3 ABG O2 Saturation ABG Base Excess ABG Hemoglobin ABG Oxyhemoglobin ABG Sodium ABG Potassium ABG Chloride ABG Glucose Oxyhemoglobin Carboxyhemoglobin Sodium Potassium Chloride Carbon Dioxide BUN Creatinine Glucose POC Glucose 153 H 120 H Hemoglobin A1c Lactic Acid Calcium Magnesium Ferritin Total Bilirubin AST ALT Alkaline Phosphatase Lactate Dehydrogenase Total Creatine Kinase C-Reactive Protein Total Protein Albumin Triglycerides Arterial Blood Glucose Arterial Blood Ionized Calcium Ur Specific [place] Urine WBC (Auto) Vancomycin Trough Coronavirus (PCR) 01/01/21 01/02/21 01/02/21 23:23 04:45 05:28 WBC RBC Hgb Hct MCHC RDW Plt Count Lymph % (Auto) [place] % (Auto) Lymph # (Auto) [place] # (Auto) Baso # (Auto) Seg Neutrophils % Seg Neuts % (Manual) Lymphocytes % (Manual) Nucleated RBC % Seg Neutrophils # Seg Neutrophils # Man Lymphocytes # (Manual) D-Dimer ABG pH 7.219 L POC ABG pCO2 102.6 H POC ABG pO2 49.7 L ABG pO2 ABG HCO3 ABG O2 Saturation ABG Base Excess ABG Hemoglobin 8.4 L ABG Oxyhemoglobin 79.4 L ABG Sodium ABG Potassium ABG Chloride ABG Glucose 146 H Oxyhemoglobin Carboxyhemoglobin 2.3 H Sodium Potassium Chloride Carbon Dioxide BUN Creatinine Glucose POC Glucose 144 H 133 H Hemoglobin A1c Lactic Acid Calcium Magnesium Ferritin Total Bilirubin AST ALT Alkaline Phosphatase Lactate Dehydrogenase Total Creatine Kinase C-Reactive Protein Total Protein Albumin Triglycerides Arterial Blood Glucose 146 H Arterial Blood Ionized Calcium 4.4 L Ur Specific [place] Urine WBC (Auto) Vancomycin Trough Coronavirus (PCR) 01/02/21 01/02/21 01/02/21 11:50 17:53 23:26 WBC RBC Hgb Hct MCHC RDW Plt Count Lymph % (Auto) [place] % (Auto) Lymph # (Auto) [place] # (Auto) Baso # (Auto) Seg Neutrophils % Seg Neuts % (Manual) Lymphocytes % (Manual) Nucleated RBC % Seg Neutrophils # Seg Neutrophils # Man Lymphocytes # (Manual) D-Dimer ABG pH POC ABG pCO2 POC ABG pO2 ABG pO2 ABG HCO3 ABG O2 Saturation ABG Base Excess ABG Hemoglobin ABG Oxyhemoglobin ABG Sodium ABG Potassium ABG Chloride ABG Glucose Oxyhemoglobin Carboxyhemoglobin Sodium Potassium Chloride Carbon Dioxide BUN Creatinine Glucose POC Glucose 139 H 149 H 155 H Hemoglobin A1c Lactic Acid Calcium Magnesium Ferritin Total Bilirubin AST ALT Alkaline Phosphatase Lactate Dehydrogenase Total Creatine Kinase C-Reactive Protein Total Protein Albumin Triglycerides Arterial Blood Glucose Arterial Blood Ionized Calcium Ur Specific [place] Urine WBC (Auto) Vancomycin Trough Coronavirus (PCR) 01/02/21 01/03/21 01/03/21 Unknown 03:51 05:23 WBC RBC Hgb Hct MCHC RDW Plt Count Lymph % (Auto) [place] % (Auto) Lymph # (Auto) [place] # (Auto) Baso # (Auto) Seg Neutrophils % Seg Neuts % (Manual) Lymphocytes % (Manual) Nucleated RBC % Seg Neutrophils # Seg Neutrophils # Man Lymphocytes # (Manual) D-Dimer ABG pH POC ABG pCO2 73.4 H POC ABG pO2 44.7 L ABG pO2 ABG HCO3 ABG O2 Saturation ABG Base Excess ABG Hemoglobin 7.8 L ABG Oxyhemoglobin ABG Sodium ABG Potassium ABG Chloride ABG Glucose 177 H Oxyhemoglobin Carboxyhemoglobin Sodium Potassium Chloride Carbon Dioxide BUN Creatinine Glucose POC Glucose 156 H Hemoglobin A1c Lactic Acid Calcium Magnesium Ferritin Total Bilirubin AST ALT Alkaline Phosphatase Lactate Dehydrogenase Total Creatine Kinase C-Reactive Protein Total Protein Albumin Triglycerides 718 H Arterial Blood Glucose 177 H Arterial Blood Ionized Calcium 4.3 L Ur Specific [place] Urine WBC (Auto) Vancomycin Trough Coronavirus (PCR) 01/03/21 01/03/21 06:00 Unknown WBC 12.5 H RBC 2.34 L Hgb 6.9 L Hct 21.9 L MCHC RDW 19.3 H Plt Count Lymph % (Auto) [place] % (Auto) Lymph # (Auto) [place] # (Auto) Baso # (Auto) Seg Neutrophils % Seg Neuts % (Manual) Lymphocytes % (Manual) Nucleated RBC % Seg Neutrophils # Seg Neutrophils # Man Lymphocytes # (Manual) D-Dimer ABG pH POC ABG pCO2 POC ABG pO2 ABG pO2 ABG HCO3 ABG O2 Saturation ABG Base Excess ABG Hemoglobin ABG Oxyhemoglobin ABG Sodium ABG Potassium ABG Chloride ABG Glucose Oxyhemoglobin Carboxyhemoglobin Sodium Potassium Chloride Carbon Dioxide 37 H BUN 24 H Creatinine 0.4 L Glucose 156 H POC Glucose Hemoglobin A1c Lactic Acid Calcium 6.8 L Magnesium Ferritin Total Bilirubin AST ALT Alkaline Phosphatase Lactate Dehydrogenase Total Creatine Kinase C-Reactive Protein Total Protein Albumin Triglycerides Arterial Blood Glucose Arterial Blood Ionized Calcium Ur Specific [place] Urine WBC (Auto) Vancomycin Trough Coronavirus (PCR)
--- NOTE | 2021-01-03 10:48 | Progress Note ---
Assessment and Plan Assessment and plan: 59-year-old female who is smoker who presented to [facility] with shortness of breath cough fever weakness for 1 to 2 days prior to arrival. Per EMS the patient was severely hypoxic with saturations in the low 80s. With all oxygen and nonrebreather came down to low 90s. ID, pulmonary, CCM were consulted. Septic Shock Coag Negative staph/Entrococcus bactermia MRSA/Klebsiella in sputum COVID-19 pneumonia Acute hypoxic hypercapnic respiratory failure Bilateral pneumothorax Pneumomediastinum with subcutaneous emphysema Elevated D-dimer Transaminitis secondary to Covid 19 Klebsiella pneumonia Type 2 diabetes mellitus Severe protien calorie malnutrition secondary to critical illness Metabolic alkalosis Hypercapnia 2/: Patient continues on BiPAP throughout the night. Labs are remarkable for hypoxia with improving renal function but lactic acidosis without fever. CTA has been ordered to rule out pulmonary embolism. I agree with increasing enoxaparin to twice daily full dose for empiric treatment of pulmonary embolism. Will obtain ID consultation on further evaluation for possible underlying pneumonia versus COVID-19. We will also obtain echocardiogram for evaluation. Will discontinue fluids at this time. 2/2; Continue supportive care, Patient remains with very guarded prognosis, remains on BiPAP, continues on Remdesivir, and steroids. Will continue anticoagulation, unable to get CTA Chest due to patients unstable clinical status. Will adjust insulin for better blood glucose 2/3: Continues on BIPAP, no clear improvement at this time. Will continue steroids therapy Remdesivir and also Full anticoagulation at this time. Will update family. Discussed with Customer Consultant. 2/4: Taking a break from the BiPAP on high flow and nonrebreather 100% with saturation of 90% becomes hypoxic with any movement. Customer Consultant input noted will get a dose of Lasix today. Will await a discussion with ID for possibly increasing steroid. I updated Patient's Cousin, Tayla Esquivel who is the emergency call or contact centre manager. Blood sugar remains fluctuating secondary to steriods, Encouraged Prone positioning. Noted with mild hyponatremia we will continue to monitor and manage 2/5: Continue supportive care wean oxygen as tolerated prognosis remains guarded. Encouraged to progress as tolerated. Awaiting labs today. Discussed with nursing staff and patient at bedside. 2/6: Discontinued Dexamethasone as Solumedrol started secondary to increased oxygen demand. Will give additional insulin for better control. Continue oxygen support patient still on high flow. Prognosis still guarded 11/22: Patient was intubated and placed on mechanical ventilation. Continue current medication. Will check a.m. labs today. Noted still with hypotension. Doubt septic shock at this time as patient has no new fever. Will adjust insulin for better blood sugar control. 11/23: Patient admitted with COVID-19 despite all efforts patient remains severely hypoxic and now is intubated. Customer Consultant input noted. Blood pressure marginal at this time. Very poor prognosis. Continue Solu-Medrol. 11/24. Patient remains very hypoxic. Blood pressure borderline. Plan for initiation of paralytic agents as per nanny/household manager. Patient may need to be transferred if no improvement. 11/26. Off paralytics. Remains intubated. On steroids. Prognosis is poor. 11/27. Chest xray shows pneumomediastinum and subcutaneous emphysema. Surgery con sulted. Plan for chest tube placement. Sputum culture grew MRSA. Patient started on vancomycin per ID. 11/28. Right chest tube placed yesterday by surgery. Repeat chest x-ray showed left small pneumothorax. Plan for chest tube placement on the left today. Remains on paralytic agents. 11/29. Remains intubated on vent. Had left chest tube placed yesterday. Vitals reviewed. Critical care following 11/30/ Remains on mechanical ventilation. Worsening hypoxia. Bilateral chest tubes in place. Vitals reviewed. Labs reviewed 12/01: Chest tube and mechanical ventilation remains in place, poor prognosis, FIO2 remains at 90%, adjust insulin for better blood glucose control 12/02: Patient remains on full ventilatory support and steroids, still with worsening leukocytosis ?inflammatory or infectious vs steroids. Continue vancomycin. 12/03; slowly weaning, 12/04: Still on the vent FiO2 down to 65% PEEP remains at 18. Still with poor prognosis. 12/05: Patient continues on full ventilatory support per nanny/household manager PEEP remains at 18. Still with hypercapnic respiratory failure. FiO2 down to 60% this morning. Chest tube to suction still weaning off steroids in the deliberation ongoing for possible a third chest tube as last documentation by surgery shows no plan for it at this time. Continue to manage insulin for better blood sugar control. 12/06:weaned down to 60%, continue supportive care, unable to wean, 12/07; patient remains intubated on ventilatory support, chest tubes in place trach and PEG when patient's Covid test is negative,Per surgery. 12/08; Patient remains intubated remains with hypercapnia and hypoxia. Chest tube still remain in place. He is off antibiotics at this time. Continue steroids which is likely resultant to the leukocytosis. Customer Consultant and surgeon following ID input is noted. Prognosis remains guarded to poor 12/10; patient remains intubated on vent, unable to wean awaiting trach and PEG when Covid test is negative, Continue current management 12/11; patient awaiting trach and PEG when Covid test is negative, vent dependent, poor prognosis 12/12; clinically no change, vent dependent, Patient is critically ill with very poor prognosis, awaiting trach and PEG when COVID-19 test turns negative. Plan discussed with nursing staff. Caregivers have discussed with patient's family periodically 12/13: Patient is critically ill with very poor prognosis, awaiting trach and PEG when COVID-19 test turns negative. Plan discussed with nursing staff. Caregivers have discussed with patient's family periodically 12/14: Increase UOP which we will monitor and replete as needed. Patient remain hypoxemic on ABG despite 100 FiO2, remains on fentanyl, precedex, versed and levo gtt. 12/15: Patient remains sedated on fentanyl at 3 mcg, Versed at 30 mg, dexamethasone 0.3 and was on Levophed 6 mcg this morning. Patient's vent settings rate of 30, tidal volume 425, PEEP of 18, FiO2 of 85. RT attempted to wean as tolerated. No acute events reported overnight. Bilateral chest tubes to wall suction. 12/16: Overnight the patient was noted to be bradycardic, Precedex drip was increased to 0.6/fentanyl to 4 mcg/Versed 5 mg, bilateral chest tube to suction. Current vent settings for 425/30/18/0.75, RT to wean as tolerated 12/17: Patient's T-max overnight was 101.2, obtain CXR today, blood culture x2 per ID. Patient remains on fentanyl, Versed, Precedex and Levophed. Current vent settings AC 425/30/18/0.75, RT to wean as tolerated. Continue steroid taper. 12/18: Patient remains sedated on fentanyl, Versed, Precedex and has vasopressor support of Levophed, current vent settings 425/30/18/0.75 with bilateral chest tubes to wall suction. Patient's blood culture from 12/17 grew gram-positive cocci in pairs and chains however the patient is on vancomycin and cefepime. We will continue to follow for speciation and sensitivity. 12/19: Unfortunately remains on full ventilatory support prognosis remains very poor. No new fever however since 12/17. Continue to follow cultures not finalized yet. Antibiotics per ID critical care management input noted. Patient remains on high FiO2 and PEEP at this time. 12/20: Still with intermittent fever, likely secondary to covid 19, still with hyponatremia, continue with tube feed. cultures with coagulas negative staph, await further ID input. Continues on abx. 12/21: Patient remains on fentanyl, Precedex, Versed and Levophed and assist control for 25/30/18/.100 with bilateral chest tubes in place. Patient remains on antibiotic therapy. No acute events reported overnight. 12/22: Patient remains sedated on Precedex and fentanyl and on vasopressor support, blood cultures grew coag negative Staphylococcus and Enterococcus and antibiotic therapy was deescalated to ampicillin by infectious disease. This morning patient was on assist control for 25/30/18/0.100 and respiratory therapy to decrease FiO2 as tolerated. 12/23: Patient remains sedated on Versed, fentanyl, propofol, dexamethasone and vasopressor support with Levophed. Patient is on ampicillin with a T-max of 99 and current vent settings assist-control 425/30/18/0.90 which is being weaned as tolerated by RT. Patient bowel regimen escalated. 12/24: Patient was febrile overnight to 102, remains sedated on Versed, fentanyl, propofol and Precedex and on respiratory support with Levophed. This morning at the time my examination patient was on assist control 425/30/18/0.100. Patient's bowel regimen was escalated. This afternoon patient SPO2 dropped into the upper 60s and low 70s, patient was removed off the ventilator and bagged by RT with improvement in his SPO2 to mid 70s and his ventilator settings were adju sted with an increase in PEEP to 22 and reduction in tidal volume. Patient remained with SPO2 in the 70s to 80s then suddenly dropped his SPO2 again. A CXR was obtained and patient received 40 mg of IV Lasix. CXR showed pneumothorax and general surgery was consulted for chest tube placement. Harmony vergara's existing right chest tube was replaced after removal. During chest tube was placed on the right side and a repeat CXR is being performed. Dr. German and Dr. Henry were kept up to date throughout the process and Dr. Henry was at beside during this time. I attempted to call Kehinde but was unable to contact him but left a voicemail. Jd was called and informed of changes with translation provided by Tayla. I spoke to them on the phone for over 30 minutes and explained the situation. They did not wish to change his CODE STATUS. Per CCM the patient respikes his temperature over the next 24 hours we will reculture his urine and blood. Patient remains on antibiotic therapy for 1 4 days per infectious disease 01/04/2021. Repeat blood cultures are negative. 12/25: Patient developed subcu emphysema on right chest and a repeat CXR shows minimal pneumothorax on the right chest wall which has not increased in size. At the time of my examination patient was on assist control 400/30/18/0.100 and the subcutaneous emphysema was noted after the patient's PEEP was increased. Patient remains sedated on Versed, fentanyl, Precedex and propofol with vasopressor support of Levophed. Patient's family decided to make the patient an AND and his CODE STATUS was updated. We will continue supportive care. Infectious disease has escalated antibiotic therapy to Zosyn. 12/26. Remains mechanically ventilated. On AC 30/400/100% PEEP 22. Not responsive. Sedated. On pressors. Labs reviewed. On antibiotics. 12/27. No change in medical condition. Remains on AC 30/40/1 100% PEEP of 22. Sedated and on pressors. On antibiotics-Zosyn. ID and critical care on board. General surgery also following for management of chest tubes. Prognosis is very poor 12/28: Patient remains sedated on Versed, fentanyl, propofol and Precedex and has vasopressor support with Levophed quad strength at 22. Patient subcu air seems to be bilateral in his upper chest. At the time my examination patient is on 400/30/22/.95 and RT will wean his vent 0.90. Patient still has leukocytosis, metabolic alkalosis, hypokalemia. 12/29: Patient remains sedated on Versed, fentanyl, Precedex and propofol with va sopressor support with Levophed. Patient remains on assist control 400/30/22/0.90 and still [place] ptosis. Patient hypokalemia has resolved 12/30: Remains sedated on propofol, Versed, fentanyl, Precedex and on Levophed. Current vent settings assist-control 400/30/22/0.80 and improving leukocytosis and metabolic alkalosis. He will complete Zosyn today. No acute events reported overnight. Patient's urine output has decreased over the past couple days and we will continue to monitor. 12/31: Patient remains intubated on mechanical ventilation. Continue RASS goal - 4 per CCM. Continue Zosyn per ID recommendations with completion of antibiotics tomorrow. Patient with extremely poor prognosis and agree with DNR status. 01/01: Patient currently on AC/PRVC mode rate 30, tidal volume 400, FiO2 100% and PEEP of 22. Patient currently with sedation of propofol, fentanyl and Versed. Patient requiring pressors of Levophed. Currently chest tubes to suction and repeat chest x-ray on Monday. Wean FiO2 as tolerated. Guarded prognosis. 01/02: Patient currently on AC/PRVC mode rate 30, tidal volume 400, FiO2 80% and PEEP of 22. Patient currently with sedation of propofol, fentanyl and Versed. Patient requiring pressors of Levophed. Currently chest tubes to suction and repeat chest x-ray on Monday. Wean FiO2 as tolerated. Guarded prognosis. 01/03: Pulmonary reports inability to wean FiO2. Patient currently on AC/PRVC mode rate 30, tidal volume 400, FiO2 80% and PEEP of 22. urrently chest tubes to suction and repeat chest x-ray on Monday. Continue pressors to maintain MAP > 65. Poor prognosis. The high probability of a clinically significant, sudden or life threatening deterioration of the [cardiac, respiratory and neurological] system(s) required my full and direct attention, intervention and personal management. The aggregate critical care time was [31] minutes. This time is in addition to time spent performing reported procedures but includes the following: [x] Data Review and interpretation [x] Patient assessment and monitoring of vital signs [x] Documentation [x] Medication orders and management History Interval history: No new issues overnight Hospitalist Physical - Constitutional Vitals: Temp Pulse Resp BP Pulse Ox 100.0 F H 117 H 30 H 124/69 88 01/03/21 07:25 01/03/21 08:58 01/03/21 08:00 01/03/21 08:58 01/03/21 08:58 General appearance: Present: no acute distress, other (comatose) - EENT Eyes: Present: PERRL, EOM intact ENT: hearing intact, clear oral mucosa, dentition normal - Neck Neck: Present: supple, normal ROM - Respiratory Respiratory effort: normal Respiratory: bilateral: CTA - Cardiovascular Rhythm: regular Heart Sounds: Present: S1 & S2. Absent: gallop, rub - Extremities Extremities: no ischemia, No edema, Full ROM - Abdominal General gastrointestinal: soft, non-tender, non-distended, normal bowel sounds - Integumentary Integumentary: Present: clear, warm, dry - Neurologic Neurologic: CNII-XII intact, moves all extremities HEART Score - HEART Score Troponin: Troponin T < 0.010 ng/mL (0.00-0.029) 12/11/20 06:30 Results - Labs CBC & Chem 7: 01/03/21 06:00 01/03/21 Unknown Labs: Laboratory Last Values WBC 12.5 K/mm3 (4.5-11.0) H 01/03/21 06:00 RBC 2.34 M/mm3 (3.65-5.03) L 01/03/21 06:00 Hgb 6.9 gm/dl (11.8-15.2) L 01/03/21 06:00 Hct 21.9 % (35.5-45.6) L 01/03/21 06:00 MCV 94 fl (84-94) 01/03/21 06:00 MCH 30 pg (28-32) 01/03/21 06:00 MCHC 32 % (32-34) 01/03/21 06:00 RDW 19.3 % (13.2-15.2) H 01/03/21 06:00 Plt Count 364 K/mm3 (140-440) 01/03/21 06:00 Lymph % (Auto) 9.2 % (13.4-35.0) L 12/30/20 04:00 [place] % (Auto) 2.9 % (0.0-7.3) 12/30/20 04:00 Eos % (Auto) 0.6 % (0.0-4.3) 12/30/20 04:00 Baso % (Auto) 0.3 % (0.0-1.8) 12/30/20 04:00 Lymph # (Auto) 1.4 K/mm3 (1.2-5.4) 12/30/20 04:00 [place] # (Auto) 0.4 K/mm3 (0.0-0.8) 12/30/20 04:00 Eos # (Auto) 0.1 K/mm3 (0.0-0.4) 12/30/20 04:00 Baso # (Auto) 0.0 K/mm3 (0.0-0.1) 12/30/20 04:00 Add Manual Diff Complete 01/01/21 17:00 Total Counted 100 01/01/21 17:00 Seg Neutrophils % 87.0 % (40.0-70.0) H 12/30/20 04:00 Seg Neuts % (Manual) 47.0 % (40.0-70.0) 01/01/21 17:00 Band Neutrophils % 41.0 % 01/01/21 17:00 Lymphocytes % (Manual) 9.0 % (13.4-35.0) L 01/01/21 17:00 Monocytes % (Manual) 3.0 % (0.0-7.3) 01/01/21 17:00 Eosinophils % (Manual) 2.0 % (0.0-4.3) 12/28/20 05:45 Metamyelocytes % 3.0 % 12/29/20 04:00 Myelocytes % 1.0 % 12/31/20 Unknown Nucleated RBC % 2.0 % (0.0-0.9) H 01/01/21 17:00 Seg Neutrophils # 13.1 K/mm3 (1.8-7.7) H 12/30/20 04:00 Seg Neutrophils # Man 7.6 K/mm3 (1.8-7.7) 01/01/21 17:00 Band Neutrophils # 6.6 K/mm3 01/01/21 17:00 Lymphocytes # (Manual) 1.4 K/mm3 (1.2-5.4) 01/01/21 17:00 Abs React Lymphs (Man) 0.0 K/mm3 01/01/21 17:00 Monocytes # (Manual) 0.5 K/mm3 (0.0-0.8) 01/01/21 17:00 Eosinophils # (Manual) 0.0 K/mm3 (0.0-0.4) 01/01/21 17:00 Basophils # (Manual) 0.0 K/mm3 (0.0-0.1) 01/01/21 17:00 Metamyelocytes # 0.0 K/mm3 01/01/21 17:00 Myelocytes # 0.0 K/mm3 01/01/21 17:00 Promyelocytes # 0.0 K/mm3 01/01/21 17:00 Blast Cells # 0.0 K/mm3 01/01/21 17:00 WBC Morphology Not Reportable 01/01/21 17:00 Hypersegmented Neuts Not Reportable 01/01/21 17:00 Hyposegmented Neuts Not Reportable 01/01/21 17:00 Hypogranular Neuts Not Reportable 01/01/21 17:00 Smudge Cells Not Reportable 01/01/21 17:00 Toxic Granulation Not Reportable 01/01/21 17:00 Toxic Vacuolation Not Reportable 01/01/21 17:00 Dohle Bodies Not Reportable 01/01/21 17:00 Pelger-Huet Anomaly Not Reportable 01/01/21 17:00 Tony Rods Not Reportable 01/01/21 17:00 Platelet Estimate Consistent w auto 01/01/21 17:00 Clumped Platelets Not Reportable 01/01/21 17:00 Plt Clumps, EDTA Not Reportable 01/01/21 17:00 Large Platelets Rare 01/01/21 17:00 Giant Platelets Not Reportable 01/01/21 17:00 Platelet Satelliting Not Reportable 01/01/21 17:00 Plt Morphology Comment Not Reportable 01/01/21 17:00 RBC Morphology Not Reportable 01/01/21 17:00 Dimorphic RBCs Not Reportable 01/01/21 17:00 Polychromasia Few 01/01/21 17:00 Hypochromasia Not Reportable 01/01/21 17:00 Poikilocytosis Not Reportable 01/01/21 17:00 Anisocytosis Few 01/01/21 17:00 Microcytosis Not Reportable 01/01/21 17:00 Macrocytosis Not Reportable 01/01/21 17:00 Spherocytes Not Reportable 01/01/21 17:00 Pappenheimer Bodies Not Reportable 01/01/21 17:00 Sickle Cells Not Reportable 01/01/21 17:00 Target Cells Not Reportable 01/01/21 17:00 Tear Drop Cells Not Reportable 01/01/21 17:00 Ovalocytes Not Reportable 01/01/21 17:00 Stomatocytes Rare 12/27/20 14:09 Helmet Cells Not Reportable 01/01/21 17:00 [place] Bodies Not Reportable 01/01/21 17:00 [place] Rings Not Reportable 01/01/21 17:00 Henrry Cells Not Reportable 01/01/21 17:00 Bite Cells Not Reportable 01/01/21 17:00 Crenated Cell Not Reportable 01/01/21 17:00 Elliptocytes Not Reportable 01/01/21 17:00 Acanthocytes (Spur) Not Reportable 01/01/21 17:00 Rouleaux Not Reportable 01/01/21 17:00 Hemoglobin C Crystals Not Reportable 01/01/21 17:00 Schistocytes Not Reportable 01/01/21 17:00 Malaria parasites Not Reportable 01/01/21 17:00 Yovani Bodies Not Reportable 01/01/21 17:00 Hem Pathologist Commnt No 01/01/21 17:00 D-Dimer 926.11 ng/mlDDU (0-234) H 11/26/20 06:04 ABG pH 7.341 (7.320-7.450) 01/03/21 03:51 POC ABG pCO2 73.4 mmHg (32.0-48.0) H 01/03/21 03:51 ABG pCO2 86.9 mm Hg 01/01/21 04:50 POC ABG pO2 44.7 mmHg (83-108) L 01/03/21 03:51 ABG pO2 56.9 mm Hg (80.0-90.0) L 01/01/21 04:50 POC ABG HCO3 38.8 01/03/21 03:51 ABG HCO3 38.8 mmol/L (20.0-26.0) H 01/01/21 04:50 ABG O2 Saturation 82.5 (0-100) 01/03/21 03:51 ABG O2 Content 7.5 (0.0-44) 01/01/21 04:50 POC ABG Base Excess 11.5 01/03/21 03:51 ABG Base Excess 10.7 mmol/L (-2.0-3.0) H 01/01/21 04:50 ABG Hemoglobin 7.8 (12.0-17.5) L 01/03/21 03:51 ABG Oxyhemoglobin 79.4 (94-98) L 01/02/21 04:45 ABG Carboxyhemoglobin 2.8 % (0.0-5.0) 01/01/21 04:50 ABG Methemoglobin 0.3 (0.0-1.5) 01/02/21 04:45 ABG Sodium 142.1 mmol/L (136.0-145.0) 01/03/21 03:51 ABG Potassium 4.4 mmol/L (3.40-4.50) 01/03/21 03:51 ABG Chloride 104.0 mmol/L (98-107) 01/03/21 03:51 ABG Glucose 177 mg/dL (65-95) H 01/03/21 03:51 Oxyhemoglobin 82.8 % (95.0-99.0) L 01/01/21 04:50 Carboxyhemoglobin 2.3 (0.5-1.5) H 01/02/21 04:45 FiO2 80 % 01/01/21 04:50 FiO2 % 100 01/03/21 03:51 Sodium 142 mmol/L (137-145) 01/03/21 Unknown Potassium 4.5 mmol/L (3.6-5.0) 01/03/21 Unknown Chloride 103.9 mmol/L (98-107) 01/03/21 Unknown Carbon Dioxide 37 mmol/L (22-30) H 01/03/21 Unknown Anion Gap 6 mmol/L 01/03/21 Unknown BUN 24 mg/dL (9-20) H 01/03/21 Unknown Creatinine 0.4 mg/dL (0.8-1.3) L 01/03/21 Unknown Estimated GFR > 60 ml/min 01/03/21 Unknown BUN/Creatinine Ratio 60 % 01/03/21 Unknown Glucose 156 mg/dL (75-100) H 01/03/21 Unknown POC Glucose 156 mg/dL (70-105) H 01/03/21 05:23 Hemoglobin A1c 11.7 % (4-6) H 11/16/20 05:29 Lactic Acid 2.60 mmol/L (0.7-2.0) H* 11/16/20 05:29 Calcium 6.8 mg/dL (8.4-10.2) L 01/03/21 Unknown Phosphorus 2.60 mg/dL (2.5-4.5) 12/17/20 17:25 Magnesium 1.60 mg/dL (1.7-2.3) L 12/17/20 17:25 Ferritin 778.8 ng/mL (30.0-300.0) H 11/26/20 04:00 Total Bilirubin 0.30 mg/dL (0.1-1.2) 12/31/20 04:00 AST 23 units/L (5-40) 12/31/20 04:00 ALT 23 units/L (7-56) 12/31/20 04:00 Alkaline Phosphatase 107 units/L (35-129) 12/31/20 04:00 Lactate Dehydrogenase 288 units/L (91-180) H 11/26/20 04:00 Total Creatine Kinase 47 units/L (55-170) L 12/17/20 17:25 CK-MB (CK-2) 1.8 ng/mL (0.0-4.0) 12/17/20 17:25 CK-MB (CK-2) Rel Index 3.8 (0-4) 12/17/20 17:25 Troponin T < 0.010 ng/mL (0.00-0.029) 12/11/20 06:30 C-Reactive Protein 1.40 mg/dL (0.00-1.30) H 11/26/20 04:00 NT-Pro-B Natriuret Pep 107.2 pg/mL (0-900) 11/17/20 10:21 Total Protein 6.1 g/dL (6.3-8.2) L 12/31/20 04:00 Albumin 1.4 g/dL (3.9-5) L 12/31/20 04:00 Albumin/Globulin Ratio 0.3 % 12/31/20 04:00 Triglycerides 718 mg/dL (2-149) H 01/02/21 Unknown Procalcitonin 0.16 ng/mL (<0.15) 12/12/20 05:16 Arterial Blood Glucose 177 mg/dL (65-95) H 01/03/21 03:51 Arterial Blood Ionized Calcium 4.3 mg/dL (4.6-5.3) L 01/03/21 03:51 Urine Color Yellow (Yellow) 12/21/20 Unknown Urine Turbidity Cloudy (Clear) 12/21/20 Unknown Urine pH 6.0 (5.0-7.0) 12/21/20 Unknown Ur Specific [place] 1.013 (1.003-1.030) 12/21/20 Unknown Urine Protein <15 mg/dl mg/dL (Negative) 12/21/20 Unknown Urine Glucose (UA) Neg mg/dL (Negative) 12/21/20 Unknown Urine Ketones Neg mg/dL (Negative) 12/21/20 Unknown Urine Blood Neg (Negative) 12/21/20 Unknown Urine Nitrite Neg (Negative) 12/21/20 Unknown Urine Bilirubin Neg (Negative) 12/21/20 Unknown Urine Urobilinogen < 2.0 mg/dL (<2.0) 12/21/20 Unknown Ur Leukocyte Esterase Mod (Negative) 12/21/20 Unknown Urine WBC (Auto) 172.0 /HPF (0.0-6.0) H 12/21/20 Unknown Urine RBC (Auto) > 182.0 /HPF (0.0-6.0) 12/21/20 Unknown U Epithel Cells (Auto) 3.0 /HPF (0-13.0) 12/21/20 Unknown Urine Bacteria (Auto) 2+ /HPF (Negative) 12/21/20 Unknown Ur Renal Epithelial Cell <1 /LPF 12/21/20 Unknown Urine Mucus 2+ /HPF 12/21/20 Unknown Urine Yeast (Budding) 3+ /HPF 12/21/20 Unknown Vancomycin Trough 16.9 ug/mL (5.0-20.0) 12/19/20 15:46 Coronavirus (PCR) Positive (Negative) A 12/13/20 10:00 Hepatitis A IgM Ab Non-reactive (NonReactive) 12/17/20 21:40 Hep Bs Antigen Non-reactive (Negative) 12/17/20 21:40 Hep B Core IgM Ab Non-reactive (NonReactive) 12/17/20 21:40 Hepatitis C Antibody Non-reactive (NonReactive) 12/17/20 21:40 HIV 1&2 Antibody Rapid Non react (Non React) 12/17/20 21:40 HIV P24 Antigen Non react (Non React) 12/17/20 21:40 - Diagnostic Impressions Diagnostic Impressions: Echocardiogram 11/16/20 10:34 Transthoracic Echocardiogram Indication: Shortness of breath-COVID BP: 108/77 HR: 92 Conclusions *Global left ventricular systolic function is normal. *The estimated ejection fraction is 60-65%. *Mild to moderate concentric left ventricular hypertrophy is observed. *There is trace of mitral regurgitation. *There is mild to moderate tricuspid regurgitation. *There is evidence of mild pulmonary hypertension. *The right ventricular systolic pressure is calculated at 31 mmHg. Findings Left Ventricle: The left ventricular chamber size is normal. Mild to moderate concentric left ventricular hypertrophy is observed. Global left ventricular systolic function is normal. The estimated ejection fraction is 60-65%. Left Atrium: The left atrial chamber size is normal. Right Ventricle: The right ventricular cavity size is normal. The right ventricular global systolic function is normal. Right Atrium: The right atrial cavity size is normal. Aortic Valve: The aortic valve is trileaflet. There is no evidence of aortic regurgitation. There is no evidence of aortic stenosis. Mitral Valve: The mitral valve leaflets appear normal. There is trace of mitral regurgitation. There is no evidence of mitral stenosis. Tricuspid Valve: The tricuspid valve leaflets are normal. There is mild to moderate tricuspid regurgitation. The right ventricular systolic pressure is calculated at 31 mmHg. There is evidence of mild pulmonary hypertension. Pulmonic Valve: There is trace pulmonic regurgitation. Pericardium: There is no pericardial effusion. Aorta: There is no dilatation of the ascending aorta. There is no dilatation of the aortic root. Venous: The inferior vena cava appears normal in size. Measurements Chambers 2D Name Value Normal Range IVSd (2D) 0.81 cm (0.6 - 1.1) LVPWd (2D) 0.79 cm (0.6 - 1.1) LVIDd (2D) 4.22 cm (3.7 - 5.6) LVIDs (2D) 3.1 cm (2 - 3.8) LV FS (2D) 26.71 % - EF Teichholz (2D) 52.55 % - Ao root diameter (2D) 3.34 cm (2 - 3.7) Volumes/Mass Name Value Normal Range LA ESV SP 4CH (A/L) 10.87 ml - LA ESV SP 2CH (A/L) 18.74 ml - LA ESV BP (A/L) 16.38 ml - LA ESV BP (A/L) index 8.62 ml/m2 - LA ESV SP 4CH (MOD) 10.32 ml - LA ESV SP 2CH (MOD) 17.66 ml - LA ESV BP (MOD) 15.12 ml - LA ESV BP (MOD) index 7.96 ml/m2 - Diastolic/Systolic Function Name Value Normal Range MV E-wave Vmax 0.76 m/sec - MV deceleration time 133.63 msec - MV A-wave Vmax 1.1 m/sec - MV E:A ratio 0.69 ratio - Aortic Valve Name Value Normal Range AV Vmax 1.44 m/sec - AV VTI 22.94 cm - AV peak gradient 8.33 mmHg - AV mean gradient 4.73 mmHg - LVOT diameter 2.2 cm - LVOT Vmax 1.04 m/sec - LVOT VTI 18.88 cm - LVOT peak gradient 4.34 mmHg - LVOT mean gradient 2.31 mmHg - SV LVOT 72.05 ml - EVANGELISTA (continuity Vmax) 2.75 cm2 - EVANGELISTA (continuity VTI) 3.14 cm2 - Tricuspid Valve Name Value Normal Range TR Vmax 2.64 m/sec - TR peak gradient 28 mmHg - RAP 3 mmHg - RVSP 31 mmHg - Gupta/IV: Voiding Method Indwelling Catheter IV Catheter Type [Left Peripheral IV Antecubital] Active Medications - Current Medications Current Medications: Generic Name Dose Route Start Last Admin Trade Name Freq PRN Reason Stop Dose Admin Acetaminophen 650 mg 11/15/20 23:55 01/02/21 01:22 Acetaminophen 325 Mg Tab PO 650 mg Q4H PRN Administration Pain MILD(1-3)/Fever >100.5/BUTTS Lipase/Protease/Amylase 1 each 11/23/20 11:53 01/03/21 09:18 Lipase 10,500/Protease 25,000/Amylase 43,750 (Units) Dr Cap FEEDTUBE 1 each PRN PRN Administration For Clogged Feeding Tube Dextrose 25 ml 12/10/20 05:21 12/28/20 12:18 Dextrose 50% In Water (25gm) 50 Ml Syringe IV 10 ml Q30MIN PRN Administration Hypoglycemia Protocol Docusate Sodium 100 mg 12/23/20 10:00 01/03/21 09:18 Docusate Sodium 100 Mg/10 Ml Oral Liqd PO 100 mg BID RAEANN Administration Enoxaparin Sodium 40 mg 12/03/20 22:00 01/02/21 21:38 Enoxaparin 40 Mg/0.4 Ml Inj SUB-Q 40 mg QDAY@2200 RAEANN Administration Famotidine 20 mg 12/16/20 10:00 01/03/21 09:18 Famotidine 20 Mg Tab PO 20 mg BID RAEANN Administration Hydrophilic Ointment 1 applic 11/21/20 21:53 11/30/20 21:33 Lip Therapy Vaseline TP 1 applic Q2HR PRN Administration Dry Lips Midazolam HCl 100 mg/ Sodium 100 mls @ 2 mls/hr 11/21/20 22:00 01/03/21 09:19 Chloride IV 5 mg/hr TITR RAEANN 5 mls/hr Administration Protocol 2 MG/HR Propofol 1,000 mg in 100 mls @ 2.175 mls/hr 11/27/20 12:00 01/03/21 00:05 Diprivan 10 Mg/Ml IV 20 mcg/kg/min TITR RAEANN 8.7 mls/hr Administration Protocol 5 MCG/KG/MIN Dexmedetomidine HCl 400 mcg/ 104 mls @ 4.441 mls/hr 12/10/20 13:00 01/03/21 02:05 Sodium Chloride IV 0.7 mcg/kg/hr TITRATE RAEANN 15.543 mls/hr Administration Protocol 0.2 MCG/KG/HR Fentanyl Citrate 2,000 mcg in 100 mls @ 3.9 mls/hr 12/18/20 19:00 01/03/21 06:07 Fentanyl Drip Premix IV 4 mcg/kg/hr TITR RAEANN 15.6 mls/hr Administration Protocol 1 MCG/KG/HR Vasopressin 20 unit/ Sodium 101 mls @ 9.09 mls/hr 12/24/20 18:30 Chloride IV TITR RAEANN Protocol 0.03 UNITS/MIN Norepinephrine 8 mg/ Sodium 250 mls @ 3.75 mls/hr 12/25/20 22:00 01/03/21 06:06 Chloride IV 14 mcg/min TITR RAEANN 26.25 mls/hr Administration Protocol 2 MCG/MIN Insulin Glargine 8 units 12/17/20 13:52 01/02/21 21:38 Insulin Glargine 100 Units/Ml SUB-Q 8 units QHS RAEANN Administration Insulin Human Lispro 0 unit 11/22/20 06:00 01/03/21 06:07 Insulin Lispro 100 Unit/Ml SUB-Q 3 unit Q6HR RAEANN Administration Protocol Lorazepam 1 mg 01/02/21 01:05 Lorazepam 2 Mg/Ml Vial IV Q4H PRN Agitation Metoclopramide HCl 10 mg 11/15/20 23:55 Metoclopramide 10 Mg/2 Ml Inj IV Q6H PRN Nausea And Vomiting Multi-Ingred Cream/Lotion/Oil/Oint 1 applic 11/21/20 21:53 Mineral Oil/Petrolatum, White Ophth Oint 3.5 Gm OU Q4HR PRN Dry Eye(s) Ondansetron HCl 4 mg 11/15/20 23:55 Ondansetron 4 Mg/2 Ml Inj IV Q8H PRN Nausea And Vomiting Polyethylene Glycol 17 gm 12/23/20 10:00 01/03/21 09:18 Polyethylene Glycol 3350 17 Gm Powder PO 17 gm QDAY RAEANN Administration Senna/Docusate Sodium 2 tab 12/21/20 14:00 01/03/21 05:21 Sennosides/Docusate Sodium 8.6/50 Mg Tab PO 2 tab Q8HR RAEANN Administration Simple Syrup 15 ml 11/23/20 11:53 Simple Syrup 15 Ml FEEDTUBE PRN PRN Hypoglycemia Simple Syrup 30 ml 11/23/20 11:53 Simple Syrup 15 Ml FEEDTUBE PRN PRN Hypoglycemia Sodium Bicarbonate 325 mg 11/23/20 11:53 01/03/21 09:18 Sodium Bicarbonate 325 Mg Tab FEEDTUBE 325 mg PRN PRN Administration For Clogged Feeding Tube Sodium Chloride 10 ml 11/16/20 10:00 01/03/21 09:19 Sodium Chloride 0.9% 10 Ml Flush Syringe IV 10 ml BID RAEANN Administration Sodium Chloride 10 ml 11/15/20 23:55 12/03/20 00:21 Sodium Chloride 0.9% 10 Ml Flush Syringe IV 10 ml PRN PRN Administration LINE FLUSH Nutrition/Malnutrition Assess - Dietary Evaluation Nutrition/Malnutrition Findings: Nutrition Notes Start: 11/20/20 12:03 Freq: Status: Active Protocol: Document 01/01/21 12:52 AL (Rec: 01/01/21 12:59 AL [id number]) Co-Sign 01/01/21 12:52 LP Nutrition Notes Initial or Follow up Reassessment Current Diagnosis Diabetes,Sepsis,Respiratory Failure Other Pertinent Diagnosis Bilat pneu, COVID-19 (+) Current Diet Glucerna 1.2 at 65 ml/hr Labs/Tests Reviewed Pertinent Medications Propofol at 6.525 ml/hr (172 kcal) Lantus Colace Miralax Height 5 ft 6 in Weight 91.1 kg Usual Body Weight 80.5 kg [place] Body Weight (kg) 64.54 BMI 32.4 Weight change and time frame 3% wt gain (2.7 kig) noted. Pt has 3+ pitting edema Weight Status Obese Subjective/Other Information F/U for TF tolerance. Pt is tolerating TF at 65 ml/hr ( goal rate). Percent of energy/protein needs met: 100%/100% Burn Absent Trauma Absent GI Symptoms None Difficulty In Swallowing,Chewing Current % PO Negligible Minimum of two criteria Yes Interpretation of Weight Loss (severe) >2% in 1 week Fluid Accumulation Moderate to Severe (severe) #3 Nutrition Diagnosis Inadequate oral intake Diagnosis Progress(for reassessment Continues documentation) #2 Nutrition Diagnosis Malnutrition As Evidenced by Signs and Symptoms Pt meeting 100%/100% of estimated energy/protein needs via TF for >7 days Diagnosis Progress(for reassessment Improved documentation) #1 Nutrition Diagnosis Unintended weight loss Diagnosis Progress(for reassessment Continues documentation) Is patient on ventilator? Yes Is Patient Ambulatory and/or Out of Bed No REE-([facility]-confined to bed) 2007.072 Kcal/Kg value to use for calculation 22 Approximate Energy Requirements Using 2004 kcal/Kg Calculation Used for Recommendations [facility] Additional Notes Protein: 87-145 g/day (1.2-2g/ kg) Fluid: 1ml/kcal or per MD Nutrition Intervention Change Diet Order: Continue TF Nutrition Support: Glucerna 1.2 at 65 ml/hr. Flush 125 ml q4h Kcal 1,872 Protein (gm) 93 Fluid (mL) 1,255 Goal #1 Meet at least 75% of energy and protein needs via TF Goal #2 TF tolerance Anticipated Discharge Needs: Unable to determine at this time Follow-Up By: 01/08/21 Additional Comments F/U for TF tolerance.
[2021-01-03 11:08] LABS: Total Cells Counted 100
[2021-01-03 11:09] LABS: Anisocytosis 1+; Band Neutrophils # (Manual) 0.6 K/mm3
[2021-01-03 11:10] LABS: Large Platelets Few; Platelet Estimate Consistent w Auto
[2021-01-03] MEDS: ENOXAPARIN 40 MG/0.4 ML INJ SUB-Q SCH (21:16)
[2021-01-03] MEDS: INSULIN GLARGINE 100 UNITS/ML SUB-Q SCH (21:56)
[2021-01-04] MEDS: INSULIN LISPRO 100 UNIT/ML SUB-Q SCH ×4 (00:36→18:52)
[2021-01-04] MEDS: fentaNYL DRIP Premix 2,000 MCG/100 ML BAG IV SCH ×4 (01:00→18:43)
--- NOTE | 2021-01-04 02:59 | XRay Report ---
CHEST 1 VIEW 01/04/2021 2:27 AM INDICATION / CLINICAL INFORMATION: PNA. COMPARISON: 12/26/2020 FINDINGS: SUPPORT DEVICES: ET tube, NG tube and bilateral chest tubes again noted HEART / MEDIASTINUM: No significant abnormality. Moderately dilated air-filled esophagus, new since p rior study LUNGS / PLEURA: Moderate bilateral airspace disease characteristic for pneumonia. Right-sided pneumot horax again noted. ADDITIONAL FINDINGS: No significant additional findings. IMPRESSION: 1. Stable right pneumothorax with right-sided chest tubes again noted 2. Stable moderate bilateral pneumonia 3. Moderately dilated air-filled esophagus, new since prior study Signer Name: Royce Payan MD Signed: 01/04/2021 2:55 AM Workstation Name: [id number]
[2021-01-04] MEDS: SENNOSIDES/DOCUSATE SODIUM 8.6/50 MG TAB PO SCH ×3 (06:36→21:28)
[2021-01-04 07:06] LABS: Hematocrit 21.8 % (35.5-45.6); Hemoglobin 6.9 gm/dl (11.8-15.2); Mean Corpuscular HGB Conc 32 % (32-34); Mean Corpuscular Volume 93 fl (84-94); Platelet Count 343 K/mm3 (140-440); Red Blood Count 2.34 M/mm3 (3.65-5.03); Red Cell Distribution Width 19.7 % (13.2-15.2)
[2021-01-04 07:26] LABS: Blood Urea Nitrogen 26 mg/dL (9-20); Calcium 7.2 mg/dL (8.4-10.2); Hemolysis Index 3
[2021-01-04 07:27] LABS: BUN/Creatinine Ratio 65
[2021-01-04] MEDS: NORepinephrine 8 MG in SODIUM CHLORIDE 0.9% 250ML 242 ML IV SCH ×2 (08:14→23:22)
--- NOTE | 2021-01-04 09:38 | Progress Note ---
Assessment and Plan 59 y/o male with acute respiratory failure, abnormal CXR and abnormal lab studies. : Prognosis remains very very poor. Inspite of all of our efforts, no real improvement has been seen. Will give the family a little more time but will need to have talks this week about comfort measures given lack of improvement. Patient is an AND, but right now quality of life should be considered more than quantity. Continue supportive care. 01/01/21: Continue chest tubes to Suction, all of them. Continue increased suction on the tubes on the right at least through the weekend. Consider repeat CXR on Monday but no need to order over the weekend, will assess when I get back. Continue sedation at current level. Ok with trying to inch down FiO2 as tolerated but keep PaO2 55 and greater and sats 92% and greater. Guarded to poor prognosis. 12/31/20: Examined chest tubes and increased suction in pleurovac to 30 cmH2O. Only serosanguinous fluid, no blood. Explained to nursing re-inforcing mechanisms with vaseline gauze and slitted 4x4's. 12/30/20: Continue supportive measures. Continue to wean FiO2 for sats >88%, but will go slowly given his tenuous course. Chest tubes to suction. Explained to nursing, that sub q air will be present but for now, nothing to do unless oxygen saturation drops rapidly, then would need stat CXR to evaluate for worsening PTX or tension. 12/29/20: Continue supporitve measures. Continue sedation and vasopressor support. Chest tubes will remain until patient is extubated if able to do so. Prognosis is very very guarded. 12/27/20: Continue supportive measures. Continue sedation and vasopressor support. Chest tubes remain until extubated if able to do so. Very very guarded prognosis. 12/26/20: Very very poor prognosis given prolong time of hypoxemia during the events from and continued hypoxemia despite 100%. PTX's and recurrent PTX's have been very common with this current wave of COVID 19 so not entirely unexpected. Appreciate surgery help with second chest tube. Will Strip tubes again tomorrow morning. COntinue sedation and vasopressor support. Very very poor prognosis. Please do not give any further lasix, as the changes seen are not edema related. 12/24/20: If patient spikes again in the next 24 hours, please reculture urine and blood. In regards to cuff, as long as patient is not losing volumes, no indication to change tube out as of yet. Will continue to monitor. Continue abx as ID recs. Attempt to wean back down again but unfortunately this has been an ongoing issue for this patient. Continue pressors to help achieve adequate s edation for vent management. Prognosis remains guarded. 12/23/20: Continue current level of sedation. Wean parameters as listed below. appreciate ID recs and help. 12/22/20: Continue current level of sedation. Ok to wean FiO2 for sats >88% and PaO2>55mmHg. Follow up ID recs in regards to abx therapy. Prognosis unfortunately still remains guarded. 12/21/20: Back up to 100%. Peep is the same chest tubes intact. Long discussion on rounds, will restart Diprovan to obtain adequate sedation (RASS of -4). Ok to titrate pressors to achieve adequate sedation if blood pressure is compromised by sedatives. Prognosis remains guarded. Awaiting speciation of other cultures. 12/18/20: Still on 75% and 18 of PEEP. Follow up cultures, Blood pending, urine has not resulted yet. Had another temp at 20:00 last night. CXR looks more like pulmonary edema but not in a position to diurese at this time as he occasionally requires vasopressor support given the amount of sedation needed to achieve a RASS of 4. If he continues to spike, would consider hospital acquired coverage of abx therapy. Prognosis remains guarded. 12/17/20: Back down to 75%. Febrile last night, if and when spikes again today, please obtain blood cultures times 2 and urine. Will go ahead and order repeat CXR now. Prognosis still remains guarded. 12/16/20: Back up to 100%. Once stabilized will attempt to wean back down. ABG in the am and may need to consider repeat ABG later this afternoon pending clinical state. Unable to prone given bilateral chest tubes. Prognosis remains guarded to poor. 12/15/20: Tolerating weaning from yesterday. RT to attempt to wean some more today. Kidney function remains unchanged. Guarded prognosis. 12/14/20: Unable to wean FiO2 today. Continue supportive measures. Great that his kidney function has maintained but given the amount of oxygen he continues to require, his chances of recovery continue to decrease. Family aware and will up date them as needed. Very very guarded prognosis. 12/13/20: WIll start Weaning FiO2 again tomorrow morning of PaO2 remains this good. Continue all other supportive measures. Guarded prognosis. Monitor renal function closely. 12/12/20: Long discussion with brother at door. Patient remains full code which is not unreasonable but family is realistic about outcome being poor. Will continue all supportive measures. IF clinical state worsens, will ask family to come back to see patient. Guarded Prognosis. 12/11/20: Will attempt to wean Diprovan off and increase precedex. Triglycerides were ok. IF we have to support with pressors we will but I have asked nursing to please be detailed in their checkouts as to why they did certain things with the continuous drips. Continue supportive measures. Brother is going to try to come and see him from [place] 12/10/20: No acute events overnight. Patient has had waxing and waning of the amount of oxygen he has required over the last 24-72 hours. I have a bad feeling that he is on the brink of cardiac arrest and this could happen at any moment. I am going to reach out to the brother today to explain to him my concerns. Patient is a full code. Very very guarded prognosis. 12/09/20: Repeat ABG later today. Wean FiO2 for sats >88%. Repeat CXR as well. With BP dropping could be relative adrenal insufficiency, will watch for now, however if pressor requirement increases would consider stress dose steroids and maybe volume replacement. Follow up cultures. Guarded prognosis. 12/08/20: Increase TV to 425. Drop FiO2 to 65% and wean for sats >88%. COntinue chest tubes. Change steroids to 20q12. 12/07/20: CXR is stable, no indication for another chest tube at this time. Will repeat ABG in 1 hour post change to 70% and wean accordingly. Dropping steroids to 20q8. Guarded prognosis. Same weaning parameters apply today as of 12/04/20 12/04/20: Continue to wean steroids to off. Continue to wean FiO2 for sats >88%. Keep PEEP at current level, would not feel comfortable weaning PEEP until FiO2 at 35-40%. Continue chest tubes to suction. PaO2 of >55, pH of >7.2 and sats >88% are acceptable. : Dropped steroids down to 40q8 and will start to wean from there. Continue to slowly wean FiO2 first, keep PEEP at current level. Spoke with Kehinde, please see my event note, who is the biological brother. He had no questions but thanked us for our care. Prognosis remains very very guarded. P aO2 of 55 and pH of >7.2 and sats of >88% are all acceptable. 12/02/20: Wean FiO2 for sats >88% and PaO2 >55. Unable to prone currently secondary to bilateral chest tubes. COntinue high dose steroids. CM To figure out who is the immediate next of kin that can make decisions and then we will discuss the current clinical situation with them. 12/01/20: Continue PEEP and FiO2 elevated to keep sats >88% and PaO2 >55. Small lung volumes and high PEEP. very very guarded prognosis. 11/30/20: Worsening hypoxemia. Chest tubes stable. Likely just worsening disease. Unable to prone now. Increase PEEP to 18 and FiO2 back up to 100. Continue 3 sedatives for RASS of -2. Obtain 12 lead to look at T waves as K was only 4.6 on yesterday. Guarded, guarded prognosis 11/29/20: Second chest tube in on yesterday. CXR is stable. ABG unchanged. Will likely increase PEEP now that chest tubes are in. No further paralytics. Still making good urine. Prognosis remains guarded. Will check chemistry to assess Potassium levels given peaked t's seen on monitor. 11/28/20: Second chest tube today. Once chest tube in, will likely increase PEEP to 18 and repeat gas about 2 hours after this. Continue paralytic today. No proning now that patient will have bilateral chest tubes. VEry guarded prognosis. 11/27/20: Spoke with surgery who have agreed to evaluate and placed chest tube on either right or left side pending CXR reading. Will monitor for 36-48 hours and if no resolution, will need chest tube placed on opposite side as well. Once placed, will likely paralyze again but hold on proning for now. Guarded prognosis. 11/26/20: Paralytics are off. Continue current level of sedation. Will prone for 12 hours today and repeat ABG in the am. Continue lung protective strategy. Guarded prognosis. 11/25/20: Prone again to 16 hours, will prone at 12-12:30. Continue paralytics for 24 more hours. Discussed the idea of permissive hypercapnea again today and as long as pH is above 7.2 no changes should be made to TV and or RR without discussing with physician. Continue to monitor urine output, guarded prognosis. Hold on lasix therapy today. 11/24/20: Prone again today. Will try 48 hours of paralyzing the patient to see if this will help with oxygenation. Will speak with RT's about permissive hypercapnea and that pH's of 7.2 and greater are ok. Continue high doses steroids. Prognosis is still very very guarded. If not improvement with paralytics, will attempt transfer. 11/23/20: Prone again today for 12 hours. Continue High Dose steroids. Hold on lasix given marginal BP's. Prognosis is very very guarded to poor. Will continue all supportive measures. If not able to wean from 100%, will attempt transfer for ECMO. 1. Pulm- Agree with concern for covid. Agree with empiric abx but procal is only mildly elevated. Await cultures. Continue bipap therapy for now but will need to monitor closely. [facility] has ordered CTA, but I spoke with pharmacy and we will empirically treat with BID lovenox therapy. COntinue empiric steroid therapy for COVID until studies back. Not sure that he will be able to prone on bipap therapy. Monitor volume status and run as dry as possible. 2. Renal-normal function but all electrolytes abnormal. HYponatremia and Hypochloremia volume up vs volume down. Sent BNP. Would suggest obtaning echo as well. Not sure what to make of elevated lactate unless that is from increased work of breathing or damage to other tissue unknown. May need to check LFT's and Coags as well. 3. Guarded Prognosis. CCT 31 minutes. Subjective Date of service: 01/04/21 Principal diagnosis: COVID-19 Interval history: No acute events. Remains unstable. Back up to 100%. Objective Vital Signs - 12hr 01/03/21 01/03/21 01/03/21 22:00 22:30 23:00 Temperature Pulse Rate 110 H 113 H 114 H Pulse Rate [ From Monitor] Respiratory 26 H 29 H 29 H Rate Blood Pressure 104/56 109/59 99/60 O2 Sat by Pulse 88 87 88 Oximetry 01/03/21 01/03/21 01/04/21 23:02 23:30 00:00 Temperature 99.0 F Pulse Rate 112 H 115 H 128 H Pulse Rate [ 128 H From Monitor] Respiratory 30 H 29 H 25 H Rate Blood Pressure 99/60 113/58 127/73 O2 Sat by Pulse 88 89 89 Oximetry 01/04/21 01/04/21 01/04/21 00:30 00:52 01:00 Temperature Pulse Rate 124 H 124 H 122 H Pulse Rate [ From Monitor] Respiratory 29 H 30 H Rate Blood Pressure 124/68 123/65 118/66 O2 Sat by Pulse 89 88 87 Oximetry 01/04/21 01/04/21 01/04/21 01:30 02:00 02:30 Temperature Pulse Rate 122 H 122 H 118 H Pulse Rate [ From Monitor] Respiratory 30 H 39 H 30 H Rate Blood Pressure 116/63 118/71 112/62 O2 Sat by Pulse 87 86 88 Oximetry 01/04/21 01/04/21 01/04/21 03:00 03:30 04:00 Temperature 98.9 F Pulse Rate 122 H 113 H 118 H Pulse Rate [ 118 H From Monitor] Respiratory 29 H 27 H 31 H Rate Blood Pressure 119/66 112/62 105/68 O2 Sat by Pulse 90 90 89 Oximetry 01/04/21 01/04/21 01/04/21 04:30 05:00 05:30 Temperature Pulse Rate 98 H 96 H 94 H Pulse Rate [ From Monitor] Respiratory 18 30 H 30 H Rate Blood Pressure 93/50 97/53 96/55 O2 Sat by Pulse 91 90 89 Oximetry 01/04/21 01/04/21 01/04/21 06:00 06:30 08:00 Temperature 98.4 F Pulse Rate 90 89 Pulse Rate [ From Monitor] Respiratory 30 H 30 H Rate Blood Pressure 91/51 93/53 O2 Sat by Pulse 92 91 Oximetry 01/04/21 08:01 Temperature Pulse Rate 99 H Pulse Rate [ From Monitor] Respiratory Rate Blood Pressure 114/67 O2 Sat by Pulse 93 Oximetry Constitutional: lethargic, comatose, other (on vent orally intubated) ENT: other (Now intubated) Effort: other (vent support ) Ascultation: Bilateral: diminished breath sounds, rales, rhonchi, other (coarse BS bilaterally) Percussion: Bilateral: not dull Cardiovascular: regular rate and rhythm (tachy ) Gastrointestinal: soft, non-tender, non-distended Integumentary: normal Extremities: no cyanosis, no edema, pink and warm Neurologic: other (sedated) Psychiatric: other (sedated) CBC and BMP: 01/04/21 06:45 01/04/21 06:45 ABG, PT/INR, D-dimer: ABG ABG pH 7.245 (7.320-7.450) L 01/04/21 04:49 POC ABG pCO2 98.0 mmHg (32.0-48.0) H 01/04/21 04:49 ABG pCO2 86.9 mm Hg 01/01/21 04:50 POC ABG pO2 47.5 mmHg (83-108) L 01/04/21 04:49 ABG pO2 56.9 mm Hg (80.0-90.0) L 01/01/21 04:50 POC ABG HCO3 41.5 01/04/21 04:49 ABG O2 Saturation 81.1 (0-100) 01/04/21 04:49 PT/INR, D-dimer D-Dimer 926.11 ng/mlDDU (0-234) H 11/26/20 06:04 Abnormal lab findings: Abnormal Labs 11/15/20 11/15/20 11/15/20 10:39 10:39 10:39 WBC 14.3 H RBC 5.17 H Hgb Hct MCHC RDW Plt Count Lymph % (Auto) 7.8 L Angelina % (Auto) 7.6 H Lymph # (Auto) 1.1 L Angelina # (Auto) 1.1 H Baso # (Auto) Seg Neutrophils % 83.3 H Seg Neuts % (Manual) Lymphocytes % (Manual) Nucleated RBC % Seg Neutrophils # 11.9 H Seg Neutrophils # Man Lymphocytes # (Manual) D-Dimer ABG pH POC ABG pCO2 POC ABG pO2 ABG pO2 ABG HCO3 ABG O2 Saturation ABG Base Excess ABG Hemoglobin ABG Oxyhemoglobin ABG Sodium ABG Potassium ABG Chloride ABG Glucose Oxyhemoglobin Carboxyhemoglobin Sodium 128 L Potassium Chloride 96.0 L Carbon Dioxide BUN Creatinine 0.7 L Glucose 238 H POC Glucose Hemoglobin A1c Lactic Acid 4.10 H* Calcium 7.0 L Magnesium Ferritin Total Bilirubin 1.40 H AST 49 H ALT 70 H Alkaline Phosphatase Lactate Dehydrogenase 663 H Total Creatine Kinase C-Reactive Protein 19.80 H Total Protein Albumin 2.9 L Triglycerides Arterial Blood Glucose Arterial Blood Ionized Calcium Ur Specific [place] Urine WBC (Auto) Vancomycin Trough Coronavirus (PCR) 11/15/20 11/15/20 11/15/20 10:39 10:39 11:20 WBC RBC Hgb Hct MCHC RDW Plt Count Lymph % (Auto) Angelina % (Auto) Lymph # (Auto) Angelina # (Auto) Baso # (Auto) Seg Neutrophils % Seg Neuts % (Manual) Lymphocytes % (Manual) Nucleated RBC % Seg Neutrophils # Seg Neutrophils # Man Lymphocytes # (Manual) D-Dimer > 24614 H ABG pH POC ABG pCO2 29.9 L POC ABG pO2 137.3 H ABG pO2 ABG HCO3 ABG O2 Saturation ABG Base Excess ABG Hemoglobin ABG Oxyhemoglobin ABG Sodium 126.5 L ABG Potassium ABG Chloride ABG Glucose 248 H Oxyhemoglobin Carboxyhemoglobin Sodium Potassium Chloride Carbon Dioxide BUN Creatinine Glucose POC Glucose Hemoglobin A1c Lactic Acid Calcium Magnesium Ferritin 672.8 H Total Bilirubin AST ALT Alkaline Phosphatase Lactate Dehydrogenase Total Creatine Kinase C-Reactive Protein Total Protein Albumin Triglycerides Arterial Blood Glucose 248 H Arterial Blood Ionized Calcium 4.1 L Ur Specific [place] Urine WBC (Auto) Vancomycin Trough Coronavirus (PCR) 11/15/20 11/15/20 11/16/20 13:41 23:41 01:45 WBC RBC Hgb Hct MCHC RDW Plt Count Lymph % (Auto) Angelina % (Auto) Lymph # (Auto) Angelina # (Auto) Baso # (Auto) Seg Neutrophils % Seg Neuts % (Manual) Lymphocytes % (Manual) Nucleated RBC % Seg Neutrophils # Seg Neutrophils # Man Lymphocytes # (Manual) D-Dimer ABG pH POC ABG pCO2 POC ABG pO2 ABG pO2 ABG HCO3 ABG O2 Saturation ABG Base Excess ABG Hemoglobin ABG Oxyhemoglobin ABG Sodium ABG Potassium ABG Chloride ABG Glucose Oxyhemoglobin Carboxyhemoglobin Sodium Potassium Chloride Carbon Dioxide BUN Creatinine Glucose POC Glucose 284 H Hemoglobin A1c Lactic Acid 2.30 H* Calcium Magnesium Ferritin Total Bilirubin AST ALT Alkaline Phosphatase Lactate Dehydrogenase Total Creatine Kinase C-Reactive Protein Total Protein Albumin Triglycerides Arterial Blood Glucose Arterial Blood Ionized Calcium Ur Specific [place] 1.037 H Urine WBC (Auto) Vancomycin Trough Coronavirus (PCR) 11/16/20 11/16/20 11/16/20 05:29 05:29 05:29 WBC 12.9 H RBC Hgb Hct MCHC RDW Plt Count Lymph % (Auto) 4.5 L Angel[place] % (Auto) Lymph # (Auto) 0.6 L [place] # (Auto) Baso # (Auto) 0.2 H Seg Neutrophils % 89.8 H Seg Neuts % (Manual) Lymphocytes % (Manual) Nucleated RBC % Seg Neutrophils # 11.5 H Seg Neutrophils # Man Lymphocytes # (Manual) D-Dimer ABG pH POC ABG pCO2 POC ABG pO2 ABG pO2 ABG HCO3 ABG O2 Saturation ABG Base Excess ABG Hemoglobin ABG Oxyhemoglobin ABG Sodium ABG Potassium ABG Chloride ABG Glucose Oxyhemoglobin Carboxyhemoglobin Sodium 131 L Potassium Chloride Carbon Dioxide 21 L BUN 23 H Creatinine 0.6 L Glucose 342 H POC Glucose Hemoglobin A1c Lactic Acid 2.60 H* Calcium 7.0 L Magnesium Ferritin Total Bilirubin AST ALT Alkaline Phosphatase Lactate Dehydrogenase Total Creatine Kinase C-Reactive Protein Total Protein Albumin 2.4 L Triglycerides Arterial Blood Glucose Arterial Blood Ionized Calcium Ur Specific [place] Urine WBC (Auto) Vancomycin Trough Coronavirus (PCR) 11/16/20 11/16/20 11/16/20 05:29 08:11 12:11 WBC RBC Hgb Hct MCHC RDW Plt Count Lymph % (Auto) [place] % (Auto) Lymph # (Auto) [place] # (Auto) Baso # (Auto) Seg Neutrophils % Seg Neuts % (Manual) Lymphocytes % (Manual) Nucleated RBC % Seg Neutrophils # Seg Neutrophils # Man Lymphocytes # (Manual) D-Dimer ABG pH POC ABG pCO2 POC ABG pO2 ABG pO2 ABG HCO3 ABG O2 Saturation ABG Base Excess ABG Hemoglobin ABG Oxyhemoglobin ABG Sodium ABG Potassium ABG Chloride ABG Glucose Oxyhemoglobin Carboxyhemoglobin Sodium Potassium Chloride Carbon Dioxide BUN Creatinine Glucose POC Glucose 329 H 320 H Hemoglobin A1c 11.7 H Lactic Acid Calcium Magnesium Ferritin Total Bilirubin AST ALT Alkaline Phosphatase Lactate Dehydrogenase Total Creatine Kinase C-Reactive Protein Total Protein Albumin Triglycerides Arterial Blood Glucose Arterial Blood Ionized Calcium Ur Specific [place] Urine WBC (Auto) Vancomycin Trough Coronavirus (PCR) 11/16/20 11/16/20 11/16/20 16:13 21:29 Unknown WBC RBC Hgb Hct MCHC RDW Plt Count Lymph % (Auto) [place] % (Auto) Lymph # (Auto) [place] # (Auto) Baso # (Auto) Seg Neutrophils % Seg Neuts % (Manual) Lymphocytes % (Manual) Nucleated RBC % Seg Neutrophils # Seg Neutrophils # Man Lymphocytes # (Manual) D-Dimer ABG pH POC ABG pCO2 POC ABG pO2 ABG pO2 ABG HCO3 ABG O2 Saturation ABG Base Excess ABG Hemoglobin ABG Oxyhemoglobin ABG Sodium ABG Potassium ABG Chloride ABG Glucose Oxyhemoglobin Carboxyhemoglobin Sodium Potassium Chloride Carbon Dioxide BUN Creatinine Glucose POC Glucose 257 H 376 H Hemoglobin A1c Lactic Acid Calcium Magnesium Ferritin Total Bilirubin AST ALT Alkaline Phosphatase Lactate Dehydrogenase Total Creatine Kinase C-Reactive Protein Total Protein Albumin Triglycerides Arterial Blood Glucose Arterial Blood Ionized Calcium Ur Specific [place] Urine WBC (Auto) Vancomycin Trough Coronavirus (PCR) Positive A 11/17/20 11/17/20 11/17/20 07:42 12:07 17:25 WBC RBC Hgb Hct MCHC RDW Plt Count Lymph % (Auto) [place] % (Auto) Lymph # (Auto) [place] # (Auto) Baso # (Auto) Seg Neutrophils % Seg Neuts % (Manual) Lymphocytes % (Manual) Nucleated RBC % Seg Neutrophils # Seg Neutrophils # Man Lymphocytes # (Manual) D-Dimer ABG pH POC ABG pCO2 POC ABG pO2 ABG pO2 ABG HCO3 ABG O2 Saturation ABG Base Excess ABG Hemoglobin ABG Oxyhemoglobin ABG Sodium ABG Potassium ABG Chloride ABG Glucose Oxyhemoglobin Carboxyhemoglobin Sodium Potassium Chloride Carbon Dioxide BUN Creatinine Glucose POC Glucose 231 H 380 H 302 H Hemoglobin A1c Lactic Acid Calcium Magnesium Ferritin Total Bilirubin AST ALT Alkaline Phosphatase Lactate Dehydrogenase Total Creatine Kinase C-Reactive Protein Total Protein Albumin Triglycerides Arterial Blood Glucose Arterial Blood Ionized Calcium Ur Specific [place] Urine WBC (Auto) Vancomycin Trough Coronavirus (PCR) 11/17/20 11/18/20 11/18/20 21:53 04:25 07:45 WBC RBC Hgb Hct MCHC RDW Plt Count Lymph % (Auto) [place] % (Auto) Lymph # (Auto) [place] # (Auto) Baso # (Auto) Seg Neutrophils % Seg Neuts % (Manual) Lymphocytes % (Manual) Nucleated RBC % Seg Neutrophils # Seg Neutrophils # Man Lymphocytes # (Manual) D-Dimer ABG pH POC ABG pCO2 POC ABG pO2 ABG pO2 ABG HCO3 ABG O2 Saturation ABG Base Excess ABG Hemoglobin ABG Oxyhemoglobin ABG Sodium ABG Potassium ABG Chloride ABG Glucose Oxyhemoglobin Carboxyhemoglobin Sodium 136 L Potassium Chloride Carbon Dioxide BUN 24 H Creatinine 0.6 L Glucose 212 H POC Glucose 293 H 216 H Hemoglobin A1c Lactic Acid Calcium 7.4 L Magnesium Ferritin Total Bilirubin AST 41 H ALT Alkaline Phosphatase 142 H Lactate Dehydrogenase Total Creatine Kinase C-Reactive Protein Total Protein Albumin 2.3 L Triglycerides Arterial Blood Glucose Arterial Blood Ionized Calcium Ur Specific [place] Urine WBC (Auto) Vancomycin Trough Coronavirus (PCR) 11/18/20 11/18/20 11/18/20 12:28 15:58 21:37 WBC RBC Hgb Hct MCHC RDW Plt Count Lymph % (Auto) [place] % (Auto) Lymph # (Auto) [place] # (Auto) Baso # (Auto) Seg Neutrophils % Seg Neuts % (Manual) Lymphocytes % (Manual) Nucleated RBC % Seg Neutrophils # Seg Neutrophils # Man Lymphocytes # (Manual) D-Dimer ABG pH POC ABG pCO2 POC ABG pO2 ABG pO2 ABG HCO3 ABG O2 Saturation ABG Base Excess ABG Hemoglobin ABG Oxyhemoglobin ABG Sodium ABG Potassium ABG Chloride ABG Glucose Oxyhemoglobin Carboxyhemoglobin Sodium Potassium Chloride Carbon Dioxide BUN Creatinine Glucose POC Glucose 165 H 220 H 311 H Hemoglobin A1c Lactic Acid Calcium Magnesium Ferritin Total Bilirubin AST ALT Alkaline Phosphatase Lactate Dehydrogenase Total Creatine Kinase C-Reactive Protein Total Protein Albumin Triglycerides Arterial Blood Glucose Arterial Blood Ionized Calcium Ur Specific [place] Urine WBC (Auto) Vancomycin Trough Coronavirus (PCR) 11/19/20 11/19/20 11/19/20 05:35 07:40 12:39 WBC RBC Hgb Hct MCHC RDW Plt Count Lymph % (Auto) [place] % (Auto) Lymph # (Auto) [place] # (Auto) Baso # (Auto) Seg Neutrophils % Seg Neuts % (Manual) Lymphocytes % (Manual) Nucleated RBC % Seg Neutrophils # Seg Neutrophils # Man Lymphocytes # (Manual) D-Dimer ABG pH POC ABG pCO2 POC ABG pO2 ABG pO2 ABG HCO3 ABG O2 Saturation ABG Base Excess ABG Hemoglobin ABG Oxyhemoglobin ABG Sodium ABG Potassium ABG Chloride ABG Glucose Oxyhemoglobin Carboxyhemoglobin Sodium 132 L Potassium Chloride Carbon Dioxide BUN 25 H Creatinine 0.5 L Glucose 179 H POC Glucose 149 H 306 H Hemoglobin A1c Lactic Acid Calcium 7.5 L Magnesium Ferritin Total Bilirubin AST ALT Alkaline Phosphatase 139 H Lactate Dehydrogenase Total Creatine Kinase C-Reactive Protein Total Protein Albumin 2.4 L Triglycerides Arterial Blood Glucose Arterial Blood Ionized Calcium Ur Specific [place] Urine WBC (Auto) Vancomycin Trough Coronavirus (PCR) 11/19/20 11/19/20 11/20/20 16:17 21:25 08:30 WBC RBC Hgb Hct MCHC RDW Plt Count Lymph % (Auto) [place] % (Auto) Lymph # (Auto) [place] # (Auto) Baso # (Auto) Seg Neutrophils % Seg Neuts % (Manual) Lymphocytes % (Manual) Nucleated RBC % Seg Neutrophils # Seg Neutrophils # Man Lymphocytes # (Manual) D-Dimer ABG pH POC ABG pCO2 POC ABG pO2 ABG pO2 ABG HCO3 ABG O2 Saturation ABG Base Excess ABG Hemoglobin ABG Oxyhemoglobin ABG Sodium ABG Potassium ABG Chloride ABG Glucose Oxyhemoglobin Carboxyhemoglobin Sodium Potassium Chloride Carbon Dioxide BUN Creatinine Glucose POC Glucose 364 H 347 H 141 H Hemoglobin A1c Lactic Acid Calcium Magnesium Ferritin Total Bilirubin AST ALT Alkaline Phosphatase Lactate Dehydrogenase Total Creatine Kinase C-Reactive Protein Total Protein Albumin Triglycerides Arterial Blood Glucose Arterial Blood Ionized Calcium Ur Specific [place] Urine WBC (Auto) Vancomycin Trough Coronavirus (PCR) 11/20/20 11/20/20 11/20/20 08:50 11:32 16:19 WBC RBC Hgb Hct MCHC RDW Plt Count Lymph % (Auto) [place] % (Auto) Lymph # (Auto) [place] # (Auto) Baso # (Auto) Seg Neutrophils % Seg Neuts % (Manual) Lymphocytes % (Manual) Nucleated RBC % Seg Neutrophils # Seg Neutrophils # Man Lymphocytes # (Manual) D-Dimer ABG pH POC ABG pCO2 POC ABG pO2 ABG pO2 ABG HCO3 ABG O2 Saturation ABG Base Excess ABG Hemoglobin ABG Oxyhemoglobin ABG Sodium ABG Potassium ABG Chloride ABG Glucose Oxyhemoglobin Carboxyhemoglobin Sodium 132 L Potassium Chloride 97.6 L Carbon Dioxide BUN 26 H Creatinine 0.5 L Glucose 201 H POC Glucose 296 H 327 H Hemoglobin A1c Lactic Acid Calcium 7.9 L Magnesium Ferritin Total Bilirubin AST ALT Alkaline Phosphatase 137 H Lactate Dehydrogenase Total Creatine Kinase C-Reactive Protein Total Protein Albumin 2.6 L Triglycerides Arterial Blood Glucose Arterial Blood Ionized Calcium Ur Specific [place] Urine WBC (Auto) Vancomycin Trough Coronavirus (PCR) 11/20/20 11/21/20 11/21/20 22:09 07:59 13:51 WBC RBC Hgb Hct MCHC RDW Plt Count Lymph % (Auto) [place] % (Auto) Lymph # (Auto) [place] # (Auto) Baso # (Auto) Seg Neutrophils % Seg Neuts % (Manual) Lymphocytes % (Manual) Nucleated RBC % Seg Neutrophils # Seg Neutrophils # Man Lymphocytes # (Manual) D-Dimer ABG pH POC ABG pCO2 POC ABG pO2 ABG pO2 ABG HCO3 ABG O2 Saturation ABG Base Excess ABG Hemoglobin ABG Oxyhemoglobin ABG Sodium ABG Potassium ABG Chloride ABG Glucose Oxyhemoglobin Carboxyhemoglobin Sodium Potassium Chloride Carbon Dioxide BUN Creatinine Glucose POC Glucose 311 H 218 H 304 H Hemoglobin A1c Lactic Acid Calcium Magnesium Ferritin Total Bilirubin AST ALT Alkaline Phosphatase Lactate Dehydrogenase Total Creatine Kinase C-Reactive Protein Total Protein Albumin Triglycerides Arterial Blood Glucose Arterial Blood Ionized Calcium Ur Specific [place] Urine WBC (Auto) Vancomycin Trough Coronavirus (PCR) 11/21/20 11/21/20 11/21/20 16:09 21:34 23:00 WBC RBC Hgb Hct MCHC RDW Plt Count Lymph % (Auto) [place] % (Auto) Lymph # (Auto) [place] # (Auto) Baso # (Auto) Seg Neutrophils % Seg Neuts % (Manual) Lymphocytes % (Manual) Nucleated RBC % Seg Neutrophils # Seg Neutrophils # Man Lymphocytes # (Manual) D-Dimer ABG pH 7.206 L POC ABG pCO2 59.3 H POC ABG pO2 76.7 L ABG pO2 ABG HCO3 ABG O2 Saturation ABG Base Excess ABG Hemoglobin ABG Oxyhemoglobin ABG Sodium 133.1 L ABG Potassium ABG Chloride ABG Glucose 320 H Oxyhemoglobin Carboxyhemoglobin Sodium Potassium Chloride Carbon Dioxide BUN Creatinine Glucose POC Glucose 239 H 279 H Hemoglobin A1c Lactic Acid Calcium Magnesium Ferritin Total Bilirubin AST ALT Alkaline Phosphatase Lactate Dehydrogenase Total Creatine Kinase C-Reactive Protein Total Protein Albumin Triglycerides Arterial Blood Glucose 320 H Arterial Blood Ionized Calcium Ur Specific [place] Urine WBC (Auto) Vancomycin Trough Coronavirus (PCR) 11/22/20 11/22/20 11/22/20 04:52 04:52 04:52 WBC RBC Hgb Hct MCHC RDW Plt Count Lymph % (Auto) [place] % (Auto) Lymph # (Auto) [place] # (Auto) Baso # (Auto) Seg Neutrophils % Seg Neuts % (Manual) Lymphocytes % (Manual) Nucleated RBC % Seg Neutrophils # Seg Neutrophils # Man Lymphocytes # (Manual) D-Dimer 1858.36 H ABG pH POC ABG pCO2 POC ABG pO2 ABG pO2 ABG HCO3 ABG O2 Saturation ABG Base Excess ABG Hemoglobin ABG Oxyhemoglobin ABG Sodium ABG Potassium ABG Chloride ABG Glucose Oxyhemoglobin Carboxyhemoglobin Sodium Potassium Chloride Carbon Dioxide BUN Creatinine Glucose POC Glucose Hemoglobin A1c Lactic Acid Calcium Magnesium Ferritin 734.2 H Total Bilirubin AST ALT Alkaline Phosphatase Lactate Dehydrogenase 404 H Total Creatine Kinase C-Reactive Protein 2.80 H Total Protein Albumin Triglycerides Arterial Blood Glucose Arterial Blood Ionized Calcium Ur Specific [place] Urine WBC (Auto) Vancomycin Trough Coronavirus (PCR) 11/22/20 11/22/20 11/22/20 05:12 05:39 11:50 WBC RBC Hgb Hct MCHC RDW Plt Count Lymph % (Auto) [place] % (Auto) Lymph # (Auto) [place] # (Auto) Baso # (Auto) Seg Neutrophils % Seg Neuts % (Manual) Lymphocytes % (Manual) Nucleated RBC % Seg Neutrophils # Seg Neutrophils # Man Lymphocytes # (Manual) D-Dimer ABG pH POC ABG pCO2 POC ABG pO2 51.0 L ABG pO2 ABG HCO3 ABG O2 Saturation ABG Base Excess ABG Hemoglobin ABG Oxyhemoglobin ABG Sodium 131.2 L ABG Potassium 4.6 H ABG Chloride ABG Glucose 317 H Oxyhemoglobin Carboxyhemoglobin Sodium Potassium Chloride Carbon Dioxide BUN Creatinine Glucose POC Glucose 340 H 417 H Hemoglobin A1c Lactic Acid Calcium Magnesium Ferritin Total Bilirubin AST ALT Alkaline Phosphatase Lactate Dehydrogenase Total Creatine Kinase C-Reactive Protein Total Protein Albumin Triglycerides Arterial Blood Glucose 317 H Arterial Blood Ionized Calcium 4.4 L Ur Specific [place] Urine WBC (Auto) Vancomycin Trough Coronavirus (PCR) 11/22/20 11/22/20 11/22/20 12:22 12:22 17:10 WBC 14.4 H RBC Hgb Hct MCHC RDW Plt Count Lymph % (Auto) [place] % (Auto) Lymph # (Auto) [place] # (Auto) Baso # (Auto) Seg Neutrophils % Seg Neuts % (Manual) 98.0 H Lymphocytes % (Manual) Nucleated RBC % Seg Neutrophils # Seg Neutrophils # Man 14.1 H Lymphocytes # (Manual) 0.0 L D-Dimer ABG pH POC ABG pCO2 POC ABG pO2 ABG pO2 ABG HCO3 ABG O2 Saturation ABG Base Excess ABG Hemoglobin ABG Oxyhemoglobin ABG Sodium ABG Potassium ABG Chloride ABG Glucose Oxyhemoglobin Carboxyhemoglobin Sodium 132 L Potassium Chloride Carbon Dioxide BUN 36 H Creatinine 0.6 L Glucose 219 H POC Glucose 157 H Hemoglobin A1c Lactic Acid Calcium 7.2 L Magnesium Ferritin Total Bilirubin AST ALT Alkaline Phosphatase Lactate Dehydrogenase Total Creatine Kinase C-Reactive Protein Total Protein Albumin Triglycerides Arterial Blood Glucose Arterial Blood Ionized Calcium Ur Specific [place] Urine WBC (Auto) Vancomycin Trough Coronavirus (PCR) 11/22/20 11/22/20 11/22/20 18:33 21:44 23:47 WBC RBC Hgb Hct MCHC RDW Plt Count Lymph % (Auto) [place] % (Auto) Lymph # (Auto) [place] # (Auto) Baso # (Auto) Seg Neutrophils % Seg Neuts % (Manual) Lymphocytes % (Manual) Nucleated RBC % Seg Neutrophils # Seg Neutrophils # Man Lymphocytes # (Manual) D-Dimer ABG pH POC ABG pCO2 POC ABG pO2 60.8 L ABG pO2 ABG HCO3 ABG O2 Saturation ABG Base Excess ABG Hemoglobin ABG Oxyhemoglobin 88.1 L ABG Sodium 135.1 L ABG Potassium ABG Chloride ABG Glucose 141 H Oxyhemoglobin Carboxyhemoglobin Sodium Potassium Chloride Carbon Dioxide BUN Creatinine Glucose POC Glucose 117 H 123 H Hemoglobin A1c Lactic Acid Calcium Magnesium Ferritin Total Bilirubin AST ALT Alkaline Phosphatase Lactate Dehydrogenase Total Creatine Kinase C-Reactive Protein Total Protein Albumin Triglycerides Arterial Blood Glucose 141 H Arterial Blood Ionized Calcium Ur Specific [place] Urine WBC (Auto) Vancomycin Trough Coronavirus (PCR) 11/23/20 11/23/20 11/23/20 04:00 04:00 05:23 WBC 14.4 H RBC Hgb Hct MCHC RDW Plt Count Lymph % (Auto) [place] % (Auto) Lymph # (Auto) [place] # (Auto) Baso # (Auto) Seg Neutrophils % Seg Neuts % (Manual) Lymphocytes % (Manual) Nucleated RBC % Seg Neutrophils # Seg Neutrophils # Man Lymphocytes # (Manual) D-Dimer ABG pH POC ABG pCO2 POC ABG pO2 ABG pO2 ABG HCO3 ABG O2 Saturation ABG Base Excess ABG Hemoglobin ABG Oxyhemoglobin ABG Sodium ABG Potassium ABG Chloride ABG Glucose Oxyhemoglobin Carboxyhemoglobin Sodium 136 L Potassium Chloride Carbon Dioxide BUN 33 H Creatinine 0.6 L Glucose 115 H POC Glucose 173 H Hemoglobin A1c Lactic Acid Calcium 7.1 L Magnesium Ferritin Total Bilirubin AST 64 H ALT 75 H Alkaline Phosphatase Lactate Dehydrogenase Total Creatine Kinase C-Reactive Protein Total Protein 5.9 L D Albumin 2.4 L Triglycerides Arterial Blood Glucose Arterial Blood Ionized Calcium Ur Specific [place] Urine WBC (Auto) Vancomycin Trough Coronavirus (PCR) 11/23/20 11/23/20 11/23/20 05:40 11:27 17:10 WBC RBC Hgb Hct MCHC RDW Plt Count Lymph % (Auto) [place] % (Auto) Lymph # (Auto) [place] # (Auto) Baso # (Auto) Seg Neutrophils % Seg Neuts % (Manual) Lymphocytes % (Manual) Nucleated RBC % Seg Neutrophils # Seg Neutrophils # Man Lymphocytes # (Manual) D-Dimer ABG pH POC ABG pCO2 POC ABG pO2 56.5 L ABG pO2 ABG HCO3 ABG O2 Saturation ABG Base Excess ABG Hemoglobin ABG Oxyhemoglobin ABG Sodium ABG Potassium ABG Chloride 109.0 H ABG Glucose 114 H Oxyhemoglobin Carboxyhemoglobin Sodium Potassium Chloride Carbon Dioxide BUN Creatinine Glucose POC Glucose 114 H 136 H Hemoglobin A1c Lactic Acid Calcium Magnesium Ferritin Total Bilirubin AST ALT Alkaline Phosphatase Lactate Dehydrogenase Total Creatine Kinase C-Reactive Protein Total Protein Albumin Triglycerides Arterial Blood Glucose 114 H Arterial Blood Ionized Calcium 4.5 L Ur Specific [place] Urine WBC (Auto) Vancomycin Trough Coronavirus (PCR) 11/24/20 11/24/20 11/24/20 05:14 05:14 05:14 WBC RBC Hgb Hct MCHC RDW Plt Count Lymph % (Auto) [place] % (Auto) Lymph # (Auto) [place] # (Auto) Baso # (Auto) Seg Neutrophils % Seg Neuts % (Manual) Lymphocytes % (Manual) Nucleated RBC % Seg Neutrophils # Seg Neutrophils # Man Lymphocytes # (Manual) D-Dimer 1433.39 H ABG pH POC ABG pCO2 POC ABG pO2 ABG pO2 ABG HCO3 ABG O2 Saturation ABG Base Excess ABG Hemoglobin ABG Oxyhemoglobin ABG Sodium ABG Potassium ABG Chloride ABG Glucose Oxyhemoglobin Carboxyhemoglobin Sodium Potassium Chloride Carbon Dioxide BUN Creatinine Glucose POC Glucose Hemoglobin A1c Lactic Acid Calcium Magnesium Ferritin 997.5 H Total Bilirubin AST ALT Alkaline Phosphatase Lactate Dehydrogenase 463 H Total Creatine Kinase C-Reactive Protein Total Protein Albumin Triglycerides Arterial Blood Glucose Arterial Blood Ionized Calcium Ur Specific [place] Urine WBC (Auto) Vancomycin Trough Coronavirus (PCR) 11/24/20 11/24/20 11/24/20 05:31 05:36 12:05 WBC RBC Hgb Hct MCHC RDW Plt Count Lymph % (Auto) [place] % (Auto) Lymph # (Auto) [place] # (Auto) Baso # (Auto) Seg Neutrophils % Seg Neuts % (Manual) Lymphocytes % (Manual) Nucleated RBC % Seg Neutrophils # Seg Neutrophils # Man Lymphocytes # (Manual) D-Dimer ABG pH POC ABG pCO2 POC ABG pO2 57.2 L ABG pO2 ABG HCO3 ABG O2 Saturation ABG Base Excess ABG Hemoglobin ABG Oxyhemoglobin ABG Sodium ABG Potassium ABG Chloride ABG Glucose 180 H Oxyhemoglobin Carboxyhemoglobin Sodium Potassium Chloride Carbon Dioxide BUN Creatinine Glucose POC Glucose 199 H 143 H Hemoglobin A1c Lactic Acid Calcium Magnesium Ferritin Total Bilirubin AST ALT Alkaline Phosphatase Lactate Dehydrogenase Total Creatine Kinase C-Reactive Protein Total Protein Albumin Triglycerides Arterial Blood Glucose 180 H Arterial Blood Ionized Calcium 4.5 L Ur Specific [place] Urine WBC (Auto) Vancomycin Trough Coronavirus (PCR) 11/24/20 11/24/20 11/24/20 12:14 17:47 23:47 WBC RBC Hgb Hct MCHC RDW Plt Count Lymph % (Auto) [place] % (Auto) Lymph # (Auto) [place] # (Auto) Baso # (Auto) Seg Neutrophils % Seg Neuts % (Manual) Lymphocytes % (Manual) Nucleated RBC % Seg Neutrophils # Seg Neutrophils # Man Lymphocytes # (Manual) D-Dimer ABG pH 7.261 L POC ABG pCO2 59.7 H POC ABG pO2 75.7 L ABG pO2 ABG HCO3 ABG O2 Saturation ABG Base Excess ABG Hemoglobin ABG Oxyhemoglobin 92.5 L ABG Sodium ABG Potassium ABG Chloride 108.0 H ABG Glucose 150 H Oxyhemoglobin Carboxyhemoglobin Sodium Potassium Chloride Carbon Dioxide BUN Creatinine Glucose POC Glucose 223 H 179 H Hemoglobin A1c Lactic Acid Calcium Magnesium Ferritin Total Bilirubin AST ALT Alkaline Phosphatase Lactate Dehydrogenase Total Creatine Kinase C-Reactive Protein Total Protein Albumin Triglycerides Arterial Blood Glucose 150 H Arterial Blood Ionized Calcium Ur Specific [place] Urine WBC (Auto) Vancomycin Trough Coronavirus (PCR) 11/25/20 11/25/20 11/25/20 03:29 05:07 05:15 WBC 13.9 H RBC Hgb Hct MCHC RDW Plt Count Lymph % (Auto) [place] % (Auto) Lymph # (Auto) [place] # (Auto) Baso # (Auto) Seg Neutrophils % Seg Neuts % (Manual) 97.0 H Lymphocytes % (Manual) Nucleated RBC % Seg Neutrophils # Seg Neutrophils # Man 13.5 H Lymphocytes # (Manual) 0.0 L D-Dimer ABG pH 7.272 L POC ABG pCO2 69.0 H POC ABG pO2 132.9 H ABG pO2 ABG HCO3 ABG O2 Saturation ABG Base Excess ABG Hemoglobin ABG Oxyhemoglobin ABG Sodium ABG Potassium ABG Chloride ABG Glucose 174 H Oxyhemoglobin Carboxyhemoglobin Sodium Potassium Chloride Carbon Dioxide BUN Creatinine Glucose POC Glucose 168 H Hemoglobin A1c Lactic Acid Calcium Magnesium Ferritin Total Bilirubin AST ALT Alkaline Phosphatase Lactate Dehydrogenase Total Creatine Kinase C-Reactive Protein Total Protein Albumin Triglycerides Arterial Blood Glucose 174 H Arterial Blood Ionized Calcium Ur Specific [place] Urine WBC (Auto) Vancomycin Trough Coronavirus (PCR) 11/25/20 11/25/20 11/25/20 05:15 11:25 17:35 WBC RBC Hgb Hct MCHC RDW Plt Count Lymph % (Auto) [place] % (Auto) Lymph # (Auto) [place] # (Auto) Baso # (Auto) Seg Neutrophils % Seg Neuts % (Manual) Lymphocytes % (Manual) Nucleated RBC % Seg Neutrophils # Seg Neutrophils # Man Lymphocytes # (Manual) D-Dimer ABG pH POC ABG pCO2 POC ABG pO2 ABG pO2 ABG HCO3 ABG O2 Saturation ABG Base Excess ABG Hemoglobin ABG Oxyhemoglobin ABG Sodium ABG Potassium ABG Chloride ABG Glucose Oxyhemoglobin Carboxyhemoglobin Sodium Potassium Chloride Carbon Dioxide BUN 29 H Creatinine 0.5 L Glucose 161 H POC Glucose 224 H 228 H Hemoglobin A1c Lactic Acid Calcium 7.8 L Magnesium Ferritin Total Bilirubin AST 89 H ALT 129 H Alkaline Phosphatase Lactate Dehydrogenase Total Creatine Kinase C-Reactive Protein Total Protein 5.8 L Albumin 2.5 L Triglycerides Arterial Blood Glucose Arterial Blood Ionized Calcium Ur Specific [place] Urine WBC (Auto) Vancomycin Trough Coronavirus (PCR) 11/25/20 11/25/20 11/26/20 20:45 23:28 04:00 WBC RBC Hgb Hct MCHC RDW Plt Count Lymph % (Auto) [place] % (Auto) Lymph # (Auto) [place] # (Auto) Baso # (Auto) Seg Neutrophils % Seg Neuts % (Manual) Lymphocytes % (Manual) Nucleated RBC % Seg Neutrophils # Seg Neutrophils # Man Lymphocytes # (Manual) D-Dimer ABG pH POC ABG pCO2 POC ABG pO2 ABG pO2 ABG HCO3 ABG O2 Saturation ABG Base Excess ABG Hemoglobin ABG Oxyhemoglobin ABG Sodium ABG Potassium ABG Chloride ABG Glucose Oxyhemoglobin Carboxyhemoglobin Sodium Potassium Chloride Carbon Dioxide BUN Creatinine Glucose POC Glucose 177 H 243 H Hemoglobin A1c Lactic Acid Calcium Magnesium Ferritin 778.8 H Total Bilirubin AST ALT Alkaline Phosphatase Lactate Dehydrogenase Total Creatine Kinase C-Reactive Protein Total Protein Albumin Triglycerides Arterial Blood Glucose Arterial Blood Ionized Calcium Ur Specific [place] Urine WBC (Auto) Vancomycin Trough Coronavirus (PCR) 11/26/20 11/26/20 11/26/20 04:00 05:34 06:04 WBC RBC Hgb Hct MCHC RDW Plt Count Lymph % (Auto) [place] % (Auto) Lymph # (Auto) [place] # (Auto) Baso # (Auto) Seg Neutrophils % Seg Neuts % (Manual) Lymphocytes % (Manual) Nucleated RBC % Seg Neutrophils # Seg Neutrophils # Man Lymphocytes # (Manual) D-Dimer 926.11 H ABG pH POC ABG pCO2 POC ABG pO2 ABG pO2 ABG HCO3 ABG O2 Saturation ABG Base Excess ABG Hemoglobin ABG Oxyhemoglobin ABG Sodium ABG Potassium ABG Chloride ABG Glucose Oxyhemoglobin Carboxyhemoglobin Sodium Potassium Chloride Carbon Dioxide 39 H D BUN 30 H Creatinine 0.5 L Glucose 193 H POC Glucose 178 H Hemoglobin A1c Lactic Acid Calcium 7.7 L Magnesium Ferritin Total Bilirubin AST 65 H ALT 132 H Alkaline Phosphatase Lactate Dehydrogenase 288 H Total Creatine Kinase C-Reactive Protein 1.40 H Total Protein 5.7 L Albumin 2.4 L Triglycerides Arterial Blood Glucose Arterial Blood Ionized Calcium Ur Specific [place] Urine WBC (Auto) Vancomycin Trough Coronavirus (PCR) 11/26/20 11/26/20 11/26/20 06:04 08:47 11:20 WBC 12.4 H RBC Hgb Hct MCHC RDW Plt Count Lymph % (Auto) [place] % (Auto) Lymph # (Auto) [place] # (Auto) Baso # (Auto) Seg Neutrophils % Seg Neuts % (Manual) 98.0 H Lymphocytes % (Manual) 1.0 L Nucleated RBC % Seg Neutrophils # Seg Neutrophils # Man 12.2 H Lymphocytes # (Manual) 0.1 L D-Dimer ABG pH POC ABG pCO2 75.2 H POC ABG pO2 61.9 L ABG pO2 ABG HCO3 ABG O2 Saturation ABG Base Excess ABG Hemoglobin ABG Oxyhemoglobin 90.3 L ABG Sodium ABG Potassium ABG Chloride ABG Glucose 243 H Oxyhemoglobin Carboxyhemoglobin Sodium Potassium Chloride Carbon Dioxide BUN Creatinine Glucose POC Glucose 255 H Hemoglobin A1c Lactic Acid Calcium Magnesium Ferritin Total Bilirubin AST ALT Alkaline Phosphatase Lactate Dehydrogenase Total Creatine Kinase C-Reactive Protein Total Protein Albumin Triglycerides Arterial Blood Glucose 243 H Arterial Blood Ionized Calcium Ur Specific [place] Urine WBC (Auto) Vancomycin Trough Coronavirus (PCR) 11/26/20 11/26/20 11/26/20 16:20 17:15 23:41 WBC RBC Hgb Hct MCHC RDW Plt Count Lymph % (Auto) [place] % (Auto) Lymph # (Auto) [place] # (Auto) Baso # (Auto) Seg Neutrophils % Seg Neuts % (Manual) Lymphocytes % (Manual) Nucleated RBC % Seg Neutrophils # Seg Neutrophils # Man Lymphocytes # (Manual) D-Dimer ABG pH POC ABG pCO2 66.6 H POC ABG pO2 78.1 L ABG pO2 ABG HCO3 ABG O2 Saturation ABG Base Excess ABG Hemoglobin ABG Oxyhemoglobin ABG Sodium ABG Potassium ABG Chloride ABG Glucose 244 H Oxyhemoglobin Carboxyhemoglobin Sodium Potassium Chloride Carbon Dioxide BUN Creatinine Glucose POC Glucose 219 H 210 H Hemoglobin A1c Lactic Acid Calcium Magnesium Ferritin Total Bilirubin AST ALT Alkaline Phosphatase Lactate Dehydrogenase Total Creatine Kinase C-Reactive Protein Total Protein Albumin Triglycerides Arterial Blood Glucose 244 H Arterial Blood Ionized Calcium Ur Specific [place] Urine WBC (Auto) Vancomycin Trough Coronavirus (PCR) 11/27/20 11/27/20 11/27/20 04:46 05:38 06:25 WBC 13.8 H RBC Hgb Hct MCHC RDW Plt Count Lymph % (Auto) 2.0 L [place] % (Auto) Lymph # (Auto) 0.3 L [place] # (Auto) Baso # (Auto) Seg Neutrophils % Seg Neuts % (Manual) 96.0 H Lymphocytes % (Manual) Nucleated RBC % Seg Neutrophils # 12.7 H Seg Neutrophils # Man 13.2 H Lymphocytes # (Manual) 0.0 L D-Dimer ABG pH POC ABG pCO2 63.0 H POC ABG pO2 53.6 L ABG pO2 ABG HCO3 ABG O2 Saturation ABG Base Excess ABG Hemoglobin ABG Oxyhemoglobin 87.8 L ABG Sodium 115.4 L ABG Potassium ABG Chloride ABG Glucose 219 H Oxyhemoglobin Carboxyhemoglobin Sodium Potassium Chloride Carbon Dioxide BUN Creatinine Glucose POC Glucose 227 H Hemoglobin A1c Lactic Acid Calcium Magnesium Ferritin Total Bilirubin AST ALT Alkaline Phosphatase Lactate Dehydrogenase Total Creatine Kinase C-Reactive Protein Total Protein Albumin Triglycerides Arterial Blood Glucose 219 H Arterial Blood Ionized Calcium Ur Specific [place] Urine WBC (Auto) Vancomycin Trough Coronavirus (PCR) 11/27/20 11/27/20 11/27/20 06:25 18:05 23:29 WBC RBC Hgb Hct MCHC RDW Plt Count Lymph % (Auto) [place] % (Auto) Lymph # (Auto) [place] # (Auto) Baso # (Auto) Seg Neutrophils % Seg Neuts % (Manual) Lymphocytes % (Manual) Nucleated RBC % Seg Neutrophils # Seg Neutrophils # Man Lymphocytes # (Manual) D-Dimer ABG pH POC ABG pCO2 POC ABG pO2 ABG pO2 ABG HCO3 ABG O2 Saturation ABG Base Excess ABG Hemoglobin ABG Oxyhemoglobin ABG Sodium ABG Potassium ABG Chloride ABG Glucose Oxyhemoglobin Carboxyhemoglobin Sodium Potassium Chloride Carbon Dioxide 38 H BUN 34 H Creatinine 0.4 L Glucose 243 H POC Glucose 329 H 227 H Hemoglobin A1c Lactic Acid Calcium 7.9 L Magnesium Ferritin Total Bilirubin AST 50 H ALT 110 H Alkaline Phosphatase Lactate Dehydrogenase Total Creatine Kinase C-Reactive Protein Total Protein 6.1 L Albumin 2.4 L Triglycerides Arterial Blood Glucose Arterial Blood Ionized Calcium Ur Specific [place] Urine WBC (Auto) Vancomycin Trough Coronavirus (PCR) 11/28/20 11/28/20 11/28/20 03:45 03:45 03:46 WBC 12.2 H RBC Hgb Hct MCHC RDW Plt Count Lymph % (Auto) [place] % (Auto) Lymph # (Auto) [place] # (Auto) Baso # (Auto) Seg Neutrophils % Seg Neuts % (Manual) 93.0 H Lymphocytes % (Manual) 2.0 L Nucleated RBC % Seg Neutrophils # Seg Neutrophils # Man 11.3 H Lymphocytes # (Manual) 0.2 L D-Dimer ABG pH POC ABG pCO2 68.4 H POC ABG pO2 55.4 L ABG pO2 ABG HCO3 ABG O2 Saturation ABG Base Excess ABG Hemoglobin ABG Oxyhemoglobin ABG Sodium ABG Potassium ABG Chloride ABG Glucose 197 H Oxyhemoglobin Carboxyhemoglobin Sodium Potassium Chloride Carbon Dioxide 36 H BUN 37 H Creatinine 0.4 L Glucose 194 H POC Glucose Hemoglobin A1c Lactic Acid Calcium 8.1 L Magnesium Ferritin Total Bilirubin AST ALT 86 H Alkaline Phosphatase Lactate Dehydrogenase Total Creatine Kinase C-Reactive Protein Total Protein 6.0 L Albumin 2.3 L Triglycerides Arterial Blood Glucose 197 H Arterial Blood Ionized Calcium Ur Specific [place] Urine WBC (Auto) Vancomycin Trough Coronavirus (PCR) 11/28/20 11/28/20 11/29/20 05:24 12:21 04:41 WBC RBC Hgb Hct MCHC RDW Plt Count Lymph % (Auto) [place] % (Auto) Lymph # (Auto) [place] # (Auto) Baso # (Auto) Seg Neutrophils % Seg Neuts % (Manual) Lymphocytes % (Manual) Nucleated RBC % Seg Neutrophils # Seg Neutrophils # Man Lymphocytes # (Manual) D-Dimer ABG pH POC ABG pCO2 55.1 H POC ABG pO2 53.6 L ABG pO2 ABG HCO3 ABG O2 Saturation ABG Base Excess ABG Hemoglobin ABG Oxyhemoglobin 87.1 L ABG Sodium 131.2 L ABG Potassium ABG Chloride ABG Glucose 164 H Oxyhemoglobin Carboxyhemoglobin Sodium Potassium Chloride Carbon Dioxide BUN Creatinine Glucose POC Glucose 173 H 126 H Hemoglobin A1c Lactic Acid Calcium Magnesium Ferritin Total Bilirubin AST ALT Alkaline Phosphatase Lactate Dehydrogenase Total Creatine Kinase C-Reactive Protein Total Protein Albumin Triglycerides Arterial Blood Glucose 164 H Arterial Blood Ionized Calcium 4.4 L Ur Specific [place] Urine WBC (Auto) Vancomycin Trough Coronavirus (PCR) 11/29/20 11/29/20 11/29/20 05:29 12:41 13:28 WBC RBC Hgb Hct MCHC RDW Plt Count Lymph % (Auto) [place] % (Auto) Lymph # (Auto) [place] # (Auto) Baso # (Auto) Seg Neutrophils % Seg Neuts % (Manual) Lymphocytes % (Manual) Nucleated RBC % Seg Neutrophils # Seg Neutrophils # Man Lymphocytes # (Manual) D-Dimer ABG pH POC ABG pCO2 POC ABG pO2 ABG pO2 ABG HCO3 ABG O2 Saturation ABG Base Excess ABG Hemoglobin ABG Oxyhemoglobin ABG Sodium ABG Potassium ABG Chloride ABG Glucose Oxyhemoglobin Carboxyhemoglobin Sodium Potassium Chloride Carbon Dioxide 40 H BUN 32 H Creatinine 0.4 L Glucose 274 H POC Glucose 173 H 257 H Hemoglobin A1c Lactic Acid Calcium 7.2 L Magnesium Ferritin Total Bilirubin AST 57 H ALT 102 H Alkaline Phosphatase Lactate Dehydrogenase Total Creatine Kinase C-Reactive Protein Total Protein 5.7 L Albumin 2.1 L Triglycerides Arterial Blood Glucose Arterial Blood Ionized Calcium Ur Specific [place] Urine WBC (Auto) Vancomycin Trough Coronavirus (PCR) 11/29/20 11/29/20 11/29/20 15:40 17:36 21:26 WBC RBC Hgb Hct MCHC RDW Plt Count Lymph % (Auto) [place] % (Auto) Lymph # (Auto) [place] # (Auto) Baso # (Auto) Seg Neutrophils % Seg Neuts % (Manual) Lymphocytes % (Manual) Nucleated RBC % Seg Neutrophils # Seg Neutrophils # Man Lymphocytes # (Manual) D-Dimer ABG pH POC ABG pCO2 POC ABG pO2 ABG pO2 ABG HCO3 ABG O2 Saturation ABG Base Excess ABG Hemoglobin ABG Oxyhemoglobin ABG Sodium ABG Potassium ABG Chloride ABG Glucose Oxyhemoglobin Carboxyhemoglobin Sodium Potassium Chloride Carbon Dioxide BUN Creatinine Glucose POC Glucose 240 H 244 H Hemoglobin A1c Lactic Acid Calcium Magnesium Ferritin Total Bilirubin AST ALT Alkaline Phosphatase Lactate Dehydrogenase Total Creatine Kinase C-Reactive Protein Total Protein Albumin Triglycerides Arterial Blood Glucose Arterial Blood Ionized Calcium Ur Specific [place] Urine WBC (Auto) Vancomycin Trough 4.0 L Coronavirus (PCR) 11/29/20 11/30/20 11/30/20 23:26 03:30 03:30 WBC RBC Hgb Hct MCHC RDW Plt Count Lymph % (Auto) [place] % (Auto) Lymph # (Auto) [place] # (Auto) Baso # (Auto) Seg Neutrophils % Seg Neuts % (Manual) 97.0 H Lymphocytes % (Manual) 1.0 L Nucleated RBC % Seg Neutrophils # Seg Neutrophils # Man 9.9 H Lymphocytes # (Manual) 0.1 L D-Dimer ABG pH POC ABG pCO2 POC ABG pO2 ABG pO2 ABG HCO3 ABG O2 Saturation ABG Base Excess ABG Hemoglobin ABG Oxyhemoglobin ABG Sodium ABG Potassium ABG Chloride ABG Glucose Oxyhemoglobin Carboxyhemoglobin Sodium Potassium Chloride Carbon Dioxide 38 H BUN 34 H Creatinine 0.4 L Glucose 305 H POC Glucose 283 H Hemoglobin A1c Lactic Acid Calcium 7.6 L Magnesium Ferritin Total Bilirubin AST ALT 89 H Alkaline Phosphatase Lactate Dehydrogenase Total Creatine Kinase C-Reactive Protein Total Protein 6.0 L Albumin 2.3 L Triglycerides Arterial Blood Glucose Arterial Blood Ionized Calcium Ur Specific [place] Urine WBC (Auto) Vancomycin Trough Coronavirus (PCR) 11/30/20 11/30/20 11/30/20 03:57 05:22 12:05 WBC RBC Hgb Hct MCHC RDW Plt Count Lymph % (Auto) [place] % (Auto) Lymph # (Auto) [place] # (Auto) Baso # (Auto) Seg Neutrophils % Seg Neuts % (Manual) Lymphocytes % (Manual) Nucleated RBC % Seg Neutrophils # Seg Neutrophils # Man Lymphocytes # (Manual) D-Dimer ABG pH POC ABG pCO2 60.8 H POC ABG pO2 51.1 L ABG pO2 ABG HCO3 ABG O2 Saturation ABG Base Excess ABG Hemoglobin ABG Oxyhemoglobin 84.6 L ABG Sodium ABG Potassium ABG Chloride ABG Glucose 315 H Oxyhemoglobin Carboxyhemoglobin Sodium Potassium Chloride Carbon Dioxide BUN Creatinine Glucose POC Glucose 295 H 413 H Hemoglobin A1c Lactic Acid Calcium Magnesium Ferritin Total Bilirubin AST ALT Alkaline Phosphatase Lactate Dehydrogenase Total Creatine Kinase C-Reactive Protein Total Protein Albumin Triglycerides Arterial Blood Glucose 315 H Arterial Blood Ionized Calcium 4.5 L Ur Specific [place] Urine WBC (Auto) Vancomycin Trough Coronavirus (PCR) 11/30/20 11/30/20 12/01/20 17:24 23:25 02:14 WBC RBC Hgb Hct MCHC RDW Plt Count Lymph % (Auto) [place] % (Auto) Lymph # (Auto) [place] # (Auto) Baso # (Auto) Seg Neutrophils % Seg Neuts % (Manual) Lymphocytes % (Manual) Nucleated RBC % Seg Neutrophils # Seg Neutrophils # Man Lymphocytes # (Manual) D-Dimer ABG pH 7.278 L POC ABG pCO2 78.1 H POC ABG pO2 79.5 L ABG pO2 ABG HCO3 ABG O2 Saturation ABG Base Excess ABG Hemoglobin 11.6 L ABG Oxyhemoglobin ABG Sodium 134.5 L ABG Potassium 4.6 H ABG Chloride ABG Glucose 286 H Oxyhemoglobin Carboxyhemoglobin Sodium Potassium Chloride Carbon Dioxide BUN Creatinine Glucose POC Glucose 305 H 302 H Hemoglobin A1c Lactic Acid Calcium Magnesium Ferritin Total Bilirubin AST ALT Alkaline Phosphatase Lactate Dehydrogenase Total Creatine Kinase C-Reactive Protein Total Protein Albumin Triglycerides Arterial Blood Glucose 286 H Arterial Blood Ionized Calcium Ur Specific [place] Urine WBC (Auto) Vancomycin Trough Coronavirus (PCR) 12/01/20 12/01/20 12/01/20 03:35 03:35 05:22 WBC 13.4 H RBC 3.54 L Hgb 10.4 L Hct 31.8 L MCHC RDW Plt Count Lymph % (Auto) [place] % (Auto) Lymph # (Auto) [place] # (Auto) Baso # (Auto) Seg Neutrophils % Seg Neuts % (Manual) 95.0 H Lymphocytes % (Manual) 3.0 L Nucleated RBC % Seg Neutrophils # Seg Neutrophils # Man 12.7 H Lymphocytes # (Manual) 0.4 L D-Dimer ABG pH POC ABG pCO2 POC ABG pO2 ABG pO2 ABG HCO3 ABG O2 Saturation ABG Base Excess ABG Hemoglobin ABG Oxyhemoglobin ABG Sodium ABG Potassium ABG Chloride ABG Glucose Oxyhemoglobin Carboxyhemoglobin Sodium Potassium Chloride Carbon Dioxide 35 H BUN 34 H Creatinine 0.5 L Glucose 279 H POC Glucose 259 H Hemoglobin A1c Lactic Acid Calcium 7.6 L Magnesium Ferritin Total Bilirubin AST ALT 63 H Alkaline Phosphatase Lactate Dehydrogenase Total Creatine Kinase C-Reactive Protein Total Protein 4.8 L Albumin 2.1 L Triglycerides Arterial Blood Glucose Arterial Blood Ionized Calcium Ur Specific [place] Urine WBC (Auto) Vancomycin Trough Coronavirus (PCR) 12/01/20 12/01/20 12/01/20 12:05 17:40 23:46 WBC RBC Hgb Hct MCHC RDW Plt Count Lymph % (Auto) [place] % (Auto) Lymph # (Auto) [place] # (Auto) Baso # (Auto) Seg Neutrophils % Seg Neuts % (Manual) Lymphocytes % (Manual) Nucleated RBC % Seg Neutrophils # Seg Neutrophils # Man Lymphocytes # (Manual) D-Dimer ABG pH POC ABG pCO2 POC ABG pO2 ABG pO2 ABG HCO3 ABG O2 Saturation ABG Base Excess ABG Hemoglobin ABG Oxyhemoglobin ABG Sodium ABG Potassium ABG Chloride ABG Glucose Oxyhemoglobin Carboxyhemoglobin Sodium Potassium Chloride Carbon Dioxide BUN Creatinine Glucose POC Glucose 197 H 244 H 284 H Hemoglobin A1c Lactic Acid Calcium Magnesium Ferritin Total Bilirubin AST ALT Alkaline Phosphatase Lactate Dehydrogenase Total Creatine Kinase C-Reactive Protein Total Protein Albumin Triglycerides Arterial Blood Glucose Arterial Blood Ionized Calcium Ur Specific [place] Urine WBC (Auto) Vancomycin Trough Coronavirus (PCR) 12/02/20 12/02/20 12/02/20 02:14 03:03 04:11 WBC 16.5 H RBC 3.55 L Hgb 10.5 L Hct 31.9 L MCHC RDW Plt Count Lymph % (Auto) [place] % (Auto) Lymph # (Auto) [place] # (Auto) Baso # (Auto) Seg Neutrophils % Seg Neuts % (Manual) 90.0 H Lymphocytes % (Manual) 3.0 L Nucleated RBC % Seg Neutrophils # Seg Neutrophils # Man 14.9 H Lymphocytes # (Manual) 0.5 L D-Dimer ABG pH POC ABG pCO2 74.8 H POC ABG pO2 58.9 L ABG pO2 ABG HCO3 ABG O2 Saturation ABG Base Excess ABG Hemoglobin 11.5 L ABG Oxyhemoglobin ABG Sodium ABG Potassium ABG Chloride ABG Glucose 264 H Oxyhemoglobin Carboxyhemoglobin Sodium Potassium Chloride Carbon Dioxide 37 H BUN 30 H Creatinine 0.4 L Glucose 245 H POC Glucose Hemoglobin A1c Lactic Acid Calcium 7.5 L Magnesium Ferritin Total Bilirubin AST ALT Alkaline Phosphatase Lactate Dehydrogenase Total Creatine Kinase C-Reactive Protein Total Protein 5.2 L Albumin 2.2 L Triglycerides Arterial Blood Glucose 264 H Arterial Blood Ionized Calcium 4.5 L Ur Specific [place] Urine WBC (Auto) Vancomycin Trough Coronavirus (PCR) 12/02/20 12/02/20 12/02/20 05:19 11:46 17:52 WBC RBC Hgb Hct MCHC RDW Plt Count Lymph % (Auto) [place] % (Auto) Lymph # (Auto) [place] # (Auto) Baso # (Auto) Seg Neutrophils % Seg Neuts % (Manual) Lymphocytes % (Manual) Nucleated RBC % Seg Neutrophils # Seg Neutrophils # Man Lymphocytes # (Manual) D-Dimer ABG pH POC ABG pCO2 POC ABG pO2 ABG pO2 ABG HCO3 ABG O2 Saturation ABG Base Excess ABG Hemoglobin ABG Oxyhemoglobin ABG Sodium ABG Potassium ABG Chloride ABG Glucose Oxyhemoglobin Carboxyhemoglobin Sodium Potassium Chloride Carbon Dioxide BUN Creatinine Glucose POC Glucose 238 H 236 H 233 H Hemoglobin A1c Lactic Acid Calcium Magnesium Ferritin Total Bilirubin AST ALT Alkaline Phosphatase Lactate Dehydrogenase Total Creatine Kinase C-Reactive Protein Total Protein Albumin Triglycerides Arterial Blood Glucose Arterial Blood Ionized Calcium Ur Specific [place] Urine WBC (Auto) Vancomycin Trough Coronavirus (PCR) 12/02/20 12/03/20 12/03/20 23:23 03:21 04:35 WBC RBC Hgb Hct MCHC RDW Plt Count 112 L Lymph % (Auto) [place] % (Auto) Lymph # (Auto) [place] # (Auto) Baso # (Auto) Seg Neutrophils % Seg Neuts % (Manual) 93.0 H Lymphocytes % (Manual) 4.0 L Nucleated RBC % Seg Neutrophils # Seg Neutrophils # Man 9.1 H Lymphocytes # (Manual) 0.4 L D-Dimer ABG pH 7.299 L POC ABG pCO2 82.1 H POC ABG pO2 62.4 L ABG pO2 ABG HCO3 ABG O2 Saturation ABG Base Excess ABG Hemoglobin 11.5 L ABG Oxyhemoglobin 89.6 L ABG Sodium 134.3 L ABG Potassium ABG Chloride 95.0 L ABG Glucose 203 H Oxyhemoglobin Carboxyhemoglobin Sodium Potassium Chloride Carbon Dioxide BUN Creatinine Glucose POC Glucose 213 H Hemoglobin A1c Lactic Acid Calcium Magnesium Ferritin Total Bilirubin AST ALT Alkaline Phosphatase Lactate Dehydrogenase Total Creatine Kinase C-Reactive Protein Total Protein Albumin Triglycerides Arterial Blood Glucose 203 H Arterial Blood Ionized Calcium 4.5 L Ur Specific [place] Urine WBC (Auto) Vancomycin Trough Coronavirus (PCR) 12/03/20 12/03/20 12/03/20 04:35 05:42 11:28 WBC RBC Hgb Hct MCHC RDW Plt Count Lymph % (Auto) [place] % (Auto) Lymph # (Auto) [place] # (Auto) Baso # (Auto) Seg Neutrophils % Seg Neuts % (Manual) Lymphocytes % (Manual) Nucleated RBC % Seg Neutrophils # Seg Neutrophils # Man Lymphocytes # (Manual) D-Dimer ABG pH POC ABG pCO2 POC ABG pO2 ABG pO2 ABG HCO3 ABG O2 Saturation ABG Base Excess ABG Hemoglobin ABG Oxyhemoglobin ABG Sodium ABG Potassium ABG Chloride ABG Glucose Oxyhemoglobin Carboxyhemoglobin Sodium Potassium Chloride 97.8 L Carbon Dioxide 43 H* BUN 25 H Creatinine 0.3 L Glucose 214 H POC Glucose 193 H 211 H Hemoglobin A1c Lactic Acid Calcium 7.7 L Magnesium Ferritin Total Bilirubin AST ALT 63 H Alkaline Phosphatase 132 H Lactate Dehydrogenase Total Creatine Kinase C-Reactive Protein Total Protein 5.1 L Albumin 2.4 L Triglycerides Arterial Blood Glucose Arterial Blood Ionized Calcium Ur Specific [place] Urine WBC (Auto) Vancomycin Trough Coronavirus (PCR) 12/03/20 12/03/20 12/04/20 17:45 23:57 00:11 WBC RBC Hgb Hct MCHC RDW Plt Count Lymph % (Auto) [place] % (Auto) Lymph # (Auto) [place] # (Auto) Baso # (Auto) Seg Neutrophils % Seg Neuts % (Manual) Lymphocytes % (Manual) Nucleated RBC % Seg Neutrophils # Seg Neutrophils # Man Lymphocytes # (Manual) D-Dimer ABG pH POC ABG pCO2 POC ABG pO2 ABG pO2 ABG HCO3 ABG O2 Saturation ABG Base Excess ABG Hemoglobin ABG Oxyhemoglobin ABG Sodium ABG Potassium ABG Chloride ABG Glucose Oxyhemoglobin Carboxyhemoglobin Sodium Potassium Chloride Carbon Dioxide BUN Creatinine Glucose POC Glucose 231 H 240 H 239 H Hemoglobin A1c Lactic Acid Calcium Magnesium Ferritin Total Bilirubin AST ALT Alkaline Phosphatase Lactate Dehydrogenase Total Creatine Kinase C-Reactive Protein Total Protein Albumin Triglycerides Arterial Blood Glucose Arterial Blood Ionized Calcium Ur Specific [place] Urine WBC (Auto) Vancomycin Trough Coronavirus (PCR) 12/04/20 12/04/20 12/04/20 04:00 05:20 05:34 WBC RBC Hgb Hct MCHC RDW Plt Count Lymph % (Auto) [place] % (Auto) Lymph # (Auto) [place] # (Auto) Baso # (Auto) Seg Neutrophils % Seg Neuts % (Manual) Lymphocytes % (Manual) Nucleated RBC % Seg Neutrophils # Seg Neutrophils # Man Lymphocytes # (Manual) D-Dimer ABG pH POC ABG pCO2 84.4 H POC ABG pO2 68.0 L ABG pO2 ABG HCO3 ABG O2 Saturation ABG Base Excess ABG Hemoglobin 11.6 L ABG Oxyhemoglobin ABG Sodium 130.9 L ABG Potassium ABG Chloride 90.0 L ABG Glucose 244 H Oxyhemoglobin Carboxyhemoglobin Sodium Potassium Chloride Carbon Dioxide BUN Creatinine Glucose POC Glucose 241 H 213 H Hemoglobin A1c Lactic Acid Calcium Magnesium Ferritin Total Bilirubin AST ALT Alkaline Phosphatase Lactate Dehydrogenase Total Creatine Kinase C-Reactive Protein Total Protein Albumin Triglycerides Arterial Blood Glucose 244 H Arterial Blood Ionized Calcium 4.4 L Ur Specific [place] Urine WBC (Auto) Vancomycin Trough Coronavirus (PCR) 12/04/20 12/04/20 12/04/20 11:36 16:53 23:32 WBC RBC Hgb Hct MCHC RDW Plt Count Lymph % (Auto) [place] % (Auto) Lymph # (Auto) [place] # (Auto) Baso # (Auto) Seg Neutrophils % Seg Neuts % (Manual) Lymphocytes % (Manual) Nucleated RBC % Seg Neutrophils # Seg Neutrophils # Man Lymphocytes # (Manual) D-Dimer ABG pH POC ABG pCO2 POC ABG pO2 ABG pO2 ABG HCO3 ABG O2 Saturation ABG Base Excess ABG Hemoglobin ABG Oxyhemoglobin ABG Sodium ABG Potassium ABG Chloride ABG Glucose Oxyhemoglobin Carboxyhemoglobin Sodium Potassium Chloride Carbon Dioxide BUN Creatinine Glucose POC Glucose 196 H 127 H 230 H Hemoglobin A1c Lactic Acid Calcium Magnesium Ferritin Total Bilirubin AST ALT Alkaline Phosphatase Lactate Dehydrogenase Total Creatine Kinase C-Reactive Protein Total Protein Albumin Triglycerides Arterial Blood Glucose Arterial Blood Ionized Calcium Ur Specific [place] Urine WBC (Auto) Vancomycin Trough Coronavirus (PCR) 12/04/20 12/05/20 12/05/20 Unknown 04:16 05:21 WBC RBC Hgb Hct MCHC RDW Plt Count Lymph % (Auto) [place] % (Auto) Lymph # (Auto) [place] # (Auto) Baso # (Auto) Seg Neutrophils % Seg Neuts % (Manual) Lymphocytes % (Manual) Nucleated RBC % Seg Neutrophils # Seg Neutrophils # Man Lymphocytes # (Manual) D-Dimer ABG pH POC ABG pCO2 86.7 H POC ABG pO2 58.0 L ABG pO2 ABG HCO3 ABG O2 Saturation ABG Base Excess ABG Hemoglobin 11.6 L ABG Oxyhemoglobin 89 L ABG Sodium 130.1 L ABG Potassium 4.9 H ABG Chloride 89.0 L ABG Glucose 254 H Oxyhemoglobin Carboxyhemoglobin Sodium 136 L Potassium Chloride 90.0 L Carbon Dioxide 46 H* BUN 24 H Creatinine 0.3 L Glucose 226 H POC Glucose 213 H Hemoglobin A1c Lactic Acid Calcium 7.6 L Magnesium Ferritin Total Bilirubin AST 46 H ALT 78 H Alkaline Phosphatase 172 H Lactate Dehydrogenase Total Creatine Kinase C-Reactive Protein Total Protein 6.0 L Albumin 2.8 L Triglycerides 156 H Arterial Blood Glucose 254 H Arterial Blood Ionized Calcium 4.4 L Ur Specific [place] Urine WBC (Auto) Vancomycin Trough Coronavirus (PCR) 12/05/20 12/05/20 12/05/20 11:22 17:26 23:38 WBC RBC Hgb Hct MCHC RDW Plt Count Lymph % (Auto) [place] % (Auto) Lymph # (Auto) [place] # (Auto) Baso # (Auto) Seg Neutrophils % Seg Neuts % (Manual) Lymphocytes % (Manual) Nucleated RBC % Seg Neutrophils # Seg Neutrophils # Man Lymphocytes # (Manual) D-Dimer ABG pH POC ABG pCO2 POC ABG pO2 ABG pO2 ABG HCO3 ABG O2 Saturation ABG Base Excess ABG Hemoglobin ABG Oxyhemoglobin ABG Sodium ABG Potassium ABG Chloride ABG Glucose Oxyhemoglobin Carboxyhemoglobin Sodium Potassium Chloride Carbon Dioxide BUN Creatinine Glucose POC Glucose 212 H 157 H 204 H Hemoglobin A1c Lactic Acid Calcium Magnesium Ferritin Total Bilirubin AST ALT Alkaline Phosphatase Lactate Dehydrogenase Total Creatine Kinase C-Reactive Protein Total Protein Albumin Triglycerides Arterial Blood Glucose Arterial Blood Ionized Calcium Ur Specific [place] Urine WBC (Auto) Vancomycin Trough Coronavirus (PCR) 12/06/20 12/06/20 12/06/20 04:31 04:31 05:12 WBC 17.0 H RBC 3.63 L Hgb 10.8 L D Hct 32.6 L D MCHC RDW Plt Count Lymph % (Auto) [place] % (Auto) Lymph # (Auto) [place] # (Auto) Baso # (Auto) Seg Neutrophils % Seg Neuts % (Manual) Lymphocytes % (Manual) Nucleated RBC % Seg Neutrophils # Seg Neutrophils # Man Lymphocytes # (Manual) D-Dimer ABG pH POC ABG pCO2 85.9 H POC ABG pO2 57.6 L ABG pO2 ABG HCO3 ABG O2 Saturation ABG Base Excess ABG Hemoglobin ABG Oxyhemoglobin ABG Sodium 131.2 L ABG Potassium 4.8 H ABG Chloride 86.0 L ABG Glucose 200 H Oxyhemoglobin Carboxyhemoglobin Sodium 134 L Potassium 5.1 H Chloride 88.4 L Carbon Dioxide 47 H* BUN 23 H Creatinine 0.3 L Glucose 206 H POC Glucose Hemoglobin A1c Lactic Acid Calcium 8.3 L Magnesium Ferritin Total Bilirubin AST 48 H ALT 91 H Alkaline Phosphatase 140 H Lactate Dehydrogenase Total Creatine Kinase C-Reactive Protein Total Protein 5.7 L Albumin 2.6 L Triglycerides Arterial Blood Glucose 200 H Arterial Blood Ionized Calcium 4.4 L Ur Specific [place] Urine WBC (Auto) Vancomycin Trough Coronavirus (PCR) 12/06/20 12/06/20 12/06/20 05:24 12:18 16:45 WBC RBC Hgb Hct MCHC RDW Plt Count Lymph % (Auto) [place] % (Auto) Lymph # (Auto) [place] # (Auto) Baso # (Auto) Seg Neutrophils % Seg Neuts % (Manual) Lymphocytes % (Manual) Nucleated RBC % Seg Neutrophils # Seg Neutrophils # Man Lymphocytes # (Manual) D-Dimer ABG pH POC ABG pCO2 POC ABG pO2 ABG pO2 ABG HCO3 ABG O2 Saturation ABG Base Excess ABG Hemoglobin ABG Oxyhemoglobin ABG Sodium ABG Potassium ABG Chloride ABG Glucose Oxyhemoglobin Carboxyhemoglobin Sodium Potassium Chloride Carbon Dioxide BUN Creatinine Glucose POC Glucose 186 H 187 H 150 H Hemoglobin A1c Lactic Acid Calcium Magnesium Ferritin Total Bilirubin AST ALT Alkaline Phosphatase Lactate Dehydrogenase Total Creatine Kinase C-Reactive Protein Total Protein Albumin Triglycerides Arterial Blood Glucose Arterial Blood Ionized Calcium Ur Specific [place] Urine WBC (Auto) Vancomycin Trough Coronavirus (PCR) 12/06/20 12/07/20 12/07/20 23:43 05:20 05:21 WBC RBC Hgb Hct MCHC RDW Plt Count Lymph % (Auto) [place] % (Auto) Lymph # (Auto) [place] # (Auto) Baso # (Auto) Seg Neutrophils % Seg Neuts % (Manual) Lymphocytes % (Manual) Nucleated RBC % Seg Neutrophils # Seg Neutrophils # Man Lymphocytes # (Manual) D-Dimer ABG pH POC ABG pCO2 POC ABG pO2 ABG pO2 48.4 L ABG HCO3 50.8 H ABG O2 Saturation 86.2 L ABG Base Excess 22.4 H ABG Hemoglobin 11.0 L ABG Oxyhemoglobin ABG Sodium ABG Potassium ABG Chloride ABG Glucose Oxyhemoglobin 84.0 L Carboxyhemoglobin Sodium Potassium Chloride Carbon Dioxide BUN Creatinine Glucose POC Glucose 153 H 107 H Hemoglobin A1c Lactic Acid Calcium Magnesium Ferritin Total Bilirubin AST ALT Alkaline Phosphatase Lactate Dehydrogenase Total Creatine Kinase C-Reactive Protein Total Protein Albumin Triglycerides Arterial Blood Glucose Arterial Blood Ionized Calcium Ur Specific [place] Urine WBC (Auto) Vancomycin Trough Coronavirus (PCR) 12/07/20 12/07/20 12/07/20 13:20 14:28 17:35 WBC RBC Hgb Hct MCHC RDW Plt Count Lymph % (Auto) [place] % (Auto) Lymph # (Auto) [place] # (Auto) Baso # (Auto) Seg Neutrophils % Seg Neuts % (Manual) Lymphocytes % (Manual) Nucleated RBC % Seg Neutrophils # Seg Neutrophils # Man Lymphocytes # (Manual) D-Dimer ABG pH POC ABG pCO2 74.1 H POC ABG pO2 68.5 L ABG pO2 ABG HCO3 ABG O2 Saturation ABG Base Excess ABG Hemoglobin 10.7 L ABG Oxyhemoglobin 91.9 L ABG Sodium 132.2 L ABG Potassium 4.7 H ABG Chloride 88.0 L ABG Glucose 138 H Oxyhemoglobin Carboxyhemoglobin Sodium 134 L Potassium Chloride 87.4 L Carbon Dioxide 49 H* BUN Creatinine 0.2 L Glucose 132 H POC Glucose 176 H Hemoglobin A1c Lactic Acid Calcium 7.7 L Magnesium Ferritin Total Bilirubin AST ALT Alkaline Phosphatase Lactate Dehydrogenase Total Creatine Kinase C-Reactive Protein Total Protein Albumin Triglycerides Arterial Blood Glucose 138 H Arterial Blood Ionized Calcium 4.0 L Ur Specific [place] Urine WBC (Auto) Vancomycin Trough Coronavirus (PCR) 12/07/20 12/08/20 12/08/20 23:44 04:12 05:29 WBC RBC Hgb Hct MCHC RDW Plt Count Lymph % (Auto) [place] % (Auto) Lymph # (Auto) [place] # (Auto) Baso # (Auto) Seg Neutrophils % Seg Neuts % (Manual) Lymphocytes % (Manual) Nucleated RBC % Seg Neutrophils # Seg Neutrophils # Man Lymphocytes # (Manual) D-Dimer ABG pH POC ABG pCO2 POC ABG pO2 ABG pO2 69.7 L ABG HCO3 50.1 H ABG O2 Saturation ABG Base Excess 21.6 H ABG Hemoglobin 10.9 L ABG Oxyhemoglobin ABG Sodium ABG Potassium ABG Chloride ABG Glucose Oxyhemoglobin 93.2 L Carboxyhemoglobin Sodium Potassium Chloride Carbon Dioxide BUN Creatinine Glucose POC Glucose 143 H 143 H Hemoglobin A1c Lactic Acid Calcium Magnesium Ferritin Total Bilirubin AST ALT Alkaline Phosphatase Lactate Dehydrogenase Total Creatine Kinase C-Reactive Protein Total Protein Albumin Triglycerides Arterial Blood Glucose Arterial Blood Ionized Calcium Ur Specific [place] Urine WBC (Auto) Vancomycin Trough Coronavirus (PCR) 12/08/20 12/08/20 12/09/20 06:10 06:10 04:24 WBC 12.0 H RBC 3.18 L Hgb 9.5 L Hct 28.9 L MCHC RDW Plt Count Lymph % (Auto) [place] % (Auto) Lymph # (Auto) [place] # (Auto) Baso # (Auto) Seg Neutrophils % Seg Neuts % (Manual) 95.0 H Lymphocytes % (Manual) 3.0 L Nucleated RBC % Seg Neutrophils # Seg Neutrophils # Man 11.4 H Lymphocytes # (Manual) 0.4 L D-Dimer ABG pH POC ABG pCO2 76.2 H POC ABG pO2 52.8 L ABG pO2 ABG HCO3 ABG O2 Saturation ABG Base Excess ABG Hemoglobin 11.7 L ABG Oxyhemoglobin ABG Sodium 132.0 L ABG Potassium ABG Chloride 87.0 L ABG Glucose 118 H Oxyhemoglobin Carboxyhemoglobin Sodium 133 L Potassium Chloride 86.3 L Carbon Dioxide 53 H* BUN Creatinine 0.2 L Glucose 156 H POC Glucose Hemoglobin A1c Lactic Acid Calcium 7.6 L Magnesium Ferritin Total Bilirubin AST ALT Alkaline Phosphatase Lactate Dehydrogenase Total Creatine Kinase C-Reactive Protein Total Protein Albumin Triglycerides Arterial Blood Glucose 118 H Arterial Blood Ionized Calcium 4.2 L Ur Specific [place] Urine WBC (Auto) Vancomycin Trough Coronavirus (PCR) 12/09/20 12/09/20 12/09/20 05:44 06:40 06:40 WBC 13.5 H RBC 3.28 L Hgb 9.7 L Hct 29.9 L MCHC RDW Plt Count Lymph % (Auto) [place] % (Auto) Lymph # (Auto) [place] # (Auto) Baso # (Auto) Seg Neutrophils % Seg Neuts % (Manual) Lymphocytes % (Manual) Nucleated RBC % Seg Neutrophils # Seg Neutrophils # Man Lymphocytes # (Manual) D-Dimer ABG pH POC ABG pCO2 POC ABG pO2 ABG pO2 ABG HCO3 ABG O2 Saturation ABG Base Excess ABG Hemoglobin ABG Oxyhemoglobin ABG Sodium ABG Potassium ABG Chloride ABG Glucose Oxyhemoglobin Carboxyhemoglobin Sodium 135 L Potassium Chloride 89.5 L Carbon Dioxide 52 H* BUN Creatinine 0.3 L Glucose 114 H POC Glucose 117 H Hemoglobin A1c Lactic Acid Calcium 7.6 L Magnesium Ferritin Total Bilirubin AST ALT Alkaline Phosphatase Lactate Dehydrogenase Total Creatine Kinase C-Reactive Protein Total Protein Albumin Triglycerides Arterial Blood Glucose Arterial Blood Ionized Calcium Ur Specific [place] Urine WBC (Auto) Vancomycin Trough Coronavirus (PCR) 12/09/20 12/09/20 12/10/20 16:42 21:11 04:28 WBC RBC Hgb Hct MCHC RDW Plt Count Lymph % (Auto) [place] % (Auto) Lymph # (Auto) [place] # (Auto) Baso # (Auto) Seg Neutrophils % Seg Neuts % (Manual) Lymphocytes % (Manual) Nucleated RBC % Seg Neutrophils # Seg Neutrophils # Man Lymphocytes # (Manual) D-Dimer ABG pH POC ABG pCO2 72.5 H 69.4 H 76.9 H POC ABG pO2 50.4 L 80.6 L 60.2 L ABG pO2 ABG HCO3 ABG O2 Saturation ABG Base Excess ABG Hemoglobin 10.4 L 10.7 L 10 L ABG Oxyhemoglobin 84.3 L 89.7 L ABG Sodium 133.7 L 133.7 L 133.8 L ABG Potassium ABG Chloride 90.0 L 91.0 L 91.0 L ABG Glucose 116 H 96 H 57 L Oxyhemoglobin Carboxyhemoglobin 0.4 L Sodium Potassium Chloride Carbon Dioxide BUN Creatinine Glucose POC Glucose Hemoglobin A1c Lactic Acid Calcium Magnesium Ferritin Total Bilirubin AST ALT Alkaline Phosphatase Lactate Dehydrogenase Total Creatine Kinase C-Reactive Protein Total Protein Albumin Triglycerides Arterial Blood Glucose 116 H 96 H 57 L Arterial Blood Ionized Calcium 4.2 L 4.3 L 4.2 L Ur Specific [place] Urine WBC (Auto) Vancomycin Trough Coronavirus (PCR) 12/10/20 12/10/20 12/10/20 05:09 05:41 11:50 WBC RBC Hgb Hct MCHC RDW Plt Count Lymph % (Auto) [place] % (Auto) Lymph # (Auto) [place] # (Auto) Baso # (Auto) Seg Neutrophils % Seg Neuts % (Manual) Lymphocytes % (Manual) Nucleated RBC % Seg Neutrophils # Seg Neutrophils # Man Lymphocytes # (Manual) D-Dimer ABG pH POC ABG pCO2 POC ABG pO2 ABG pO2 ABG HCO3 ABG O2 Saturation ABG Base Excess ABG Hemoglobin ABG Oxyhemoglobin ABG Sodium ABG Potassium ABG Chloride ABG Glucose Oxyhemoglobin Carboxyhemoglobin Sodium Potassium Chloride Carbon Dioxide BUN Creatinine Glucose POC Glucose 41 L 138 H 106 H Hemoglobin A1c Lactic Acid Calcium Magnesium Ferritin Total Bilirubin AST ALT Alkaline Phosphatase Lactate Dehydrogenase Total Creatine Kinase C-Reactive Protein Total Protein Albumin Triglycerides Arterial Blood Glucose Arterial Blood Ionized Calcium Ur Specific [place] Urine WBC (Auto) Vancomycin Trough Coronavirus (PCR) 12/10/20 12/10/20 12/11/20 17:34 23:25 04:06 WBC RBC Hgb Hct MCHC RDW Plt Count Lymph % (Auto) [place] % (Auto) Lymph # (Auto) [place] # (Auto) Baso # (Auto) Seg Neutrophils % Seg Neuts % (Manual) Lymphocytes % (Manual) Nucleated RBC % Seg Neutrophils # Seg Neutrophils # Man Lymphocytes # (Manual) D-Dimer ABG pH POC ABG pCO2 71.0 H POC ABG pO2 56.8 L ABG pO2 ABG HCO3 ABG O2 Saturation ABG Base Excess ABG Hemoglobin 10.1 L ABG Oxyhemoglobin 88.5 L ABG Sodium 132.3 L ABG Potassium ABG Chloride 91.0 L ABG Glucose 168 H Oxyhemoglobin Carboxyhemoglobin Sodium Potassium Chloride Carbon Dioxide BUN Creatinine Glucose POC Glucose 121 H 167 H Hemoglobin A1c Lactic Acid Calcium Magnesium Ferritin Total Bilirubin AST ALT Alkaline Phosphatase Lactate Dehydrogenase Total Creatine Kinase C-Reactive Protein Total Protein Albumin Triglycerides Arterial Blood Glucose 168 H Arterial Blood Ionized Calcium 4.1 L Ur Specific [place] Urine WBC (Auto) Vancomycin Trough Coronavirus (PCR) 12/11/20 12/11/20 12/11/20 05:21 11:44 15:40 WBC RBC Hgb Hct MCHC RDW Plt Count Lymph % (Auto) [place] % (Auto) Lymph # (Auto) [place] # (Auto) Baso # (Auto) Seg Neutrophils % Seg Neuts % (Manual) Lymphocytes % (Manual) Nucleated RBC % Seg Neutrophils # Seg Neutrophils # Man Lymphocytes # (Manual) D-Dimer ABG pH 7.454 H POC ABG pCO2 58.6 H POC ABG pO2 50.7 L ABG pO2 ABG HCO3 ABG O2 Saturation ABG Base Excess ABG Hemoglobin 10.1 L ABG Oxyhemoglobin 86.2 L ABG Sodium 131.2 L ABG Potassium ABG Chloride 92.0 L ABG Glucose 197 H Oxyhemoglobin Carboxyhemoglobin Sodium Potassium Chloride Carbon Dioxide BUN Creatinine Glucose POC Glucose 149 H 202 H Hemoglobin A1c Lactic Acid Calcium Magnesium Ferritin Total Bilirubin AST ALT Alkaline Phosphatase Lactate Dehydrogenase Total Creatine Kinase C-Reactive Protein Total Protein Albumin Triglycerides Arterial Blood Glucose 197 H Arterial Blood Ionized Calcium 4.2 L Ur Specific [place] Urine WBC (Auto) Vancomycin Trough Coronavirus (PCR) 12/11/20 12/11/20 12/12/20 17:09 23:16 05:09 WBC RBC Hgb Hct MCHC RDW Plt Count Lymph % (Auto) [place] % (Auto) Lymph # (Auto) [place] # (Auto) Baso # (Auto) Seg Neutrophils % Seg Neuts % (Manual) Lymphocytes % (Manual) Nucleated RBC % Seg Neutrophils # Seg Neutrophils # Man Lymphocytes # (Manual) D-Dimer ABG pH POC ABG pCO2 63.1 H POC ABG pO2 62.6 L ABG pO2 ABG HCO3 ABG O2 Saturation ABG Base Excess ABG Hemoglobin 10.3 L ABG Oxyhemoglobin ABG Sodium 130.3 L ABG Potassium 4.6 H ABG Chloride 92.0 L ABG Glucose 215 H Oxyhemoglobin Carboxyhemoglobin Sodium Potassium Chloride Carbon Dioxide BUN Creatinine Glucose POC Glucose 181 H 192 H Hemoglobin A1c Lactic Acid Calcium Magnesium Ferritin Total Bilirubin AST ALT Alkaline Phosphatase Lactate Dehydrogenase Total Creatine Kinase C-Reactive Protein Total Protein Albumin Triglycerides Arterial Blood Glucose 215 H Arterial Blood Ionized Calcium 4.4 L Ur Specific [place] Urine WBC (Auto) Vancomycin Trough Coronavirus (PCR) 12/12/20 12/12/20 12/12/20 05:16 05:47 11:41 WBC RBC Hgb Hct MCHC RDW Plt Count Lymph % (Auto) [place] % (Auto) Lymph # (Auto) [place] # (Auto) Baso # (Auto) Seg Neutrophils % Seg Neuts % (Manual) Lymphocytes % (Manual) Nucleated RBC % Seg Neutrophils # Seg Neutrophils # Man Lymphocytes # (Manual) D-Dimer ABG pH POC ABG pCO2 POC ABG pO2 ABG pO2 ABG HCO3 ABG O2 Saturation ABG Base Excess ABG Hemoglobin ABG Oxyhemoglobin ABG Sodium ABG Potassium ABG Chloride ABG Glucose Oxyhemoglobin Carboxyhemoglobin Sodium Potassium Chloride Carbon Dioxide BUN Creatinine Glucose POC Glucose 208 H 218 H Hemoglobin A1c Lactic Acid Calcium Magnesium Ferritin Total Bilirubin AST ALT Alkaline Phosphatase Lactate Dehydrogenase Total Creatine Kinase C-Reactive Protein Total Protein Albumin Triglycerides 150 H Arterial Blood Glucose Arterial Blood Ionized Calcium Ur Specific [place] Urine WBC (Auto) Vancomycin Trough Coronavirus (PCR) 12/12/20 12/12/20 12/13/20 17:05 23:18 03:36 WBC RBC Hgb Hct MCHC RDW Plt Count Lymph % (Auto) [place] % (Auto) Lymph # (Auto) [place] # (Auto) Baso # (Auto) Seg Neutrophils % Seg Neuts % (Manual) Lymphocytes % (Manual) Nucleated RBC % Seg Neutrophils # Seg Neutrophils # Man Lymphocytes # (Manual) D-Dimer ABG pH POC ABG pCO2 61.5 H POC ABG pO2 77.6 L ABG pO2 ABG HCO3 ABG O2 Saturation ABG Base Excess ABG Hemoglobin 10.2 L ABG Oxyhemoglobin ABG Sodium 127.5 L ABG Potassium ABG Chloride 91.0 L ABG Glucose 232 H Oxyhemoglobin Carboxyhemoglobin Sodium Potassium Chloride Carbon Dioxide BUN Creatinine Glucose POC Glucose 187 H 176 H Hemoglobin A1c Lactic Acid Calcium Magnesium Ferritin Total Bilirubin AST ALT Alkaline Phosphatase Lactate Dehydrogenase Total Creatine Kinase C-Reactive Protein Total Protein Albumin Triglycerides Arterial Blood Glucose 232 H Arterial Blood Ionized Calcium 4.2 L Ur Specific [place] Urine WBC (Auto) Vancomycin Trough Coronavirus (PCR) 12/13/20 12/13/20 12/13/20 05:13 10:00 11:30 WBC RBC 3.50 L Hgb 10.5 L Hct 31.9 L MCHC RDW Plt Count Lymph % (Auto) [place] % (Auto) Lymph # (Auto) [place] # (Auto) Baso # (Auto) Seg Neutrophils % Seg Neuts % (Manual) 96.0 H Lymphocytes % (Manual) Nucleated RBC % Seg Neutrophils # Seg Neutrophils # Man 9.2 H Lymphocytes # (Manual) 0.0 L D-Dimer ABG pH POC ABG pCO2 POC ABG pO2 ABG pO2 ABG HCO3 ABG O2 Saturation ABG Base Excess ABG Hemoglobin ABG Oxyhemoglobin ABG Sodium ABG Potassium ABG Chloride ABG Glucose Oxyhemoglobin Carboxyhemoglobin Sodium Potassium Chloride Carbon Dioxide BUN Creatinine Glucose POC Glucose 204 H Hemoglobin A1c Lactic Acid Calcium Magnesium Ferritin Total Bilirubin AST ALT Alkaline Phosphatase Lactate Dehydrogenase Total Creatine Kinase C-Reactive Protein Total Protein Albumin Triglycerides Arterial Blood Glucose Arterial Blood Ionized Calcium Ur Specific [place] Urine WBC (Auto) Vancomycin Trough Coronavirus (PCR) Positive A 12/13/20 12/13/20 12/13/20 11:30 12:01 18:04 WBC RBC Hgb Hct MCHC RDW Plt Count Lymph % (Auto) [place] % (Auto) Lymph # (Auto) [place] # (Auto) Baso # (Auto) Seg Neutrophils % Seg Neuts % (Manual) Lymphocytes % (Manual) Nucleated RBC % Seg Neutrophils # Seg Neutrophils # Man Lymphocytes # (Manual) D-Dimer ABG pH POC ABG pCO2 POC ABG pO2 ABG pO2 ABG HCO3 ABG O2 Saturation ABG Base Excess ABG Hemoglobin ABG Oxyhemoglobin ABG Sodium ABG Potassium ABG Chloride ABG Glucose Oxyhemoglobin Carboxyhemoglobin Sodium 132 L Potassium Chloride 90.1 L Carbon Dioxide 41 H* D BUN Creatinine 0.2 L Glucose 249 H POC Glucose 224 H 172 H Hemoglobin A1c Lactic Acid Calcium 7.4 L Magnesium Ferritin Total Bilirubin AST ALT 61 H Alkaline Phosphatase Lactate Dehydrogenase Total Creatine Kinase C-Reactive Protein Total Protein 5.7 L Albumin 2.3 L Triglycerides Arterial Blood Glucose Arterial Blood Ionized Calcium Ur Specific [place] Urine WBC (Auto) Vancomycin Trough Coronavirus (PCR) 12/13/20 12/14/20 12/14/20 23:37 04:05 04:35 WBC RBC 3.37 L Hgb 10.1 L Hct 30.7 L MCHC RDW 15.4 H Plt Count Lymph % (Auto) [place] % (Auto) Lymph # (Auto) [place] # (Auto) Baso # (Auto) Seg Neutrophils % Seg Neuts % (Manual) 93.0 H Lymphocytes % (Manual) 3.0 L Nucleated RBC % Seg Neutrophils # Seg Neutrophils # Man 7.8 H Lymphocytes # (Manual) 0.3 L D-Dimer ABG pH POC ABG pCO2 72.2 H POC ABG pO2 61.5 L ABG pO2 ABG HCO3 ABG O2 Saturation ABG Base Excess ABG Hemoglobin ABG Oxyhemoglobin 89.9 L ABG Sodium 131.4 L ABG Potassium ABG Chloride 91.0 L ABG Glucose 205 H Oxyhemoglobin Carboxyhemoglobin Sodium Potassium Chloride Carbon Dioxide BUN Creatinine Glucose POC Glucose 200 H Hemoglobin A1c Lactic Acid Calcium Magnesium Ferritin Total Bilirubin AST ALT Alkaline Phosphatase Lactate Dehydrogenase Total Creatine Kinase C-Reactive Protein Total Protein Albumin Triglycerides Arterial Blood Glucose 205 H Arterial Blood Ionized Calcium 4.3 L Ur Specific [place] Urine WBC (Auto) Vancomycin Trough Coronavirus (PCR) 12/14/20 12/14/20 12/14/20 04:35 05:12 11:31 WBC RBC Hgb Hct MCHC RDW Plt Count Lymph % (Auto) [place] % (Auto) Lymph # (Auto) [place] # (Auto) Baso # (Auto) Seg Neutrophils % Seg Neuts % (Manual) Lymphocytes % (Manual) Nucleated RBC % Seg Neutrophils # Seg Neutrophils # Man Lymphocytes # (Manual) D-Dimer ABG pH POC ABG pCO2 POC ABG pO2 ABG pO2 ABG HCO3 ABG O2 Saturation ABG Base Excess ABG Hemoglobin ABG Oxyhemoglobin ABG Sodium ABG Potassium ABG Chloride ABG Glucose Oxyhemoglobin Carboxyhemoglobin Sodium 135 L Potassium Chloride 92.5 L Carbon Dioxide 38 H BUN Creatinine 0.2 L Glucose 184 H POC Glucose 176 H 212 H Hemoglobin A1c Lactic Acid Calcium 7.7 L Magnesium Ferritin Total Bilirubin AST ALT Alkaline Phosphatase Lactate Dehydrogenase Total Creatine Kinase C-Reactive Protein Total Protein Albumin Triglycerides Arterial Blood Glucose Arterial Blood Ionized Calcium Ur Specific [place] Urine WBC (Auto) Vancomycin Trough Coronavirus (PCR) 12/14/20 12/14/20 12/15/20 17:30 23:30 03:19 WBC RBC Hgb Hct MCHC RDW Plt Count Lymph % (Auto) [place] % (Auto) Lymph # (Auto) [place] # (Auto) Baso # (Auto) Seg Neutrophils % Seg Neuts % (Manual) Lymphocytes % (Manual) Nucleated RBC % Seg Neutrophils # Seg Neutrophils # Man Lymphocytes # (Manual) D-Dimer ABG pH POC ABG pCO2 62.0 H POC ABG pO2 66.0 L ABG pO2 ABG HCO3 ABG O2 Saturation ABG Base Excess ABG Hemoglobin 10.3 L ABG Oxyhemoglobin ABG Sodium 130.5 L ABG Potassium ABG Chloride 91.0 L ABG Glucose 166 H Oxyhemoglobin Carboxyhemoglobin Sodium Potassium Chloride Carbon Dioxide BUN Creatinine Glucose POC Glucose 222 H 176 H Hemoglobin A1c Lactic Acid Calcium Magnesium Ferritin Total Bilirubin AST ALT Alkaline Phosphatase Lactate Dehydrogenase Total Creatine Kinase C-Reactive Protein Total Protein Albumin Triglycerides Arterial Blood Glucose 166 H Arterial Blood Ionized Calcium 4.4 L Ur Specific [place] Urine WBC (Auto) Vancomycin Trough Coronavirus (PCR) 12/15/20 12/15/20 12/15/20 05:24 11:39 17:30 WBC RBC Hgb Hct MCHC RDW Plt Count Lymph % (Auto) [place] % (Auto) Lymph # (Auto) [place] # (Auto) Baso # (Auto) Seg Neutrophils % Seg Neuts % (Manual) Lymphocytes % (Manual) Nucleated RBC % Seg Neutrophils # Seg Neutrophils # Man Lymphocytes # (Manual) D-Dimer ABG pH POC ABG pCO2 POC ABG pO2 ABG pO2 ABG HCO3 ABG O2 Saturation ABG Base Excess ABG Hemoglobin ABG Oxyhemoglobin ABG Sodium ABG Potassium ABG Chloride ABG Glucose Oxyhemoglobin Carboxyhemoglobin Sodium Potassium Chloride Carbon Dioxide BUN Creatinine Glucose POC Glucose 160 H 140 H 246 H Hemoglobin A1c Lactic Acid Calcium Magnesium Ferritin Total Bilirubin AST ALT Alkaline Phosphatase Lactate Dehydrogenase Total Creatine Kinase C-Reactive Protein Total Protein Albumin Triglycerides Arterial Blood Glucose Arterial Blood Ionized Calcium Ur Specific [place] Urine WBC (Auto) Vancomycin Trough Coronavirus (PCR) 12/15/20 12/16/20 12/16/20 23:42 03:54 04:46 WBC RBC 3.48 L Hgb 10.6 L Hct 31.5 L MCHC RDW 15.8 H Plt Count Lymph % (Auto) [place] % (Auto) Lymph # (Auto) [place] # (Auto) Baso # (Auto) Seg Neutrophils % Seg Neuts % (Manual) Lymphocytes % (Manual) Nucleated RBC % Seg Neutrophils # Seg Neutrophils # Man Lymphocytes # (Manual) D-Dimer ABG pH POC ABG pCO2 63.6 H POC ABG pO2 55.0 L ABG pO2 ABG HCO3 ABG O2 Saturation ABG Base Excess ABG Hemoglobin 11.1 L ABG Oxyhemoglobin 87.3 L ABG Sodium 130.7 L ABG Potassium ABG Chloride 89.0 L ABG Glucose 211 H Oxyhemoglobin Carboxyhemoglobin Sodium Potassium Chloride Carbon Dioxide BUN Creatinine Glucose POC Glucose 139 H Hemoglobin A1c Lactic Acid Calcium Magnesium Ferritin Total Bilirubin AST ALT Alkaline Phosphatase Lactate Dehydrogenase Total Creatine Kinase C-Reactive Protein Total Protein Albumin Triglycerides Arterial Blood Glucose 211 H Arterial Blood Ionized Calcium 4.3 L Ur Specific [place] Urine WBC (Auto) Vancomycin Trough Coronavirus (PCR) 12/16/20 12/16/20 12/16/20 04:46 05:34 11:40 WBC RBC Hgb Hct MCHC RDW Plt Count Lymph % (Auto) [place] % (Auto) Lymph # (Auto) [place] # (Auto) Baso # (Auto) Seg Neutrophils % Seg Neuts % (Manual) Lymphocytes % (Manual) Nucleated RBC % Seg Neutrophils # Seg Neutrophils # Man Lymphocytes # (Manual) D-Dimer ABG pH POC ABG pCO2 POC ABG pO2 ABG pO2 ABG HCO3 ABG O2 Saturation ABG Base Excess ABG Hemoglobin ABG Oxyhemoglobin ABG Sodium ABG Potassium ABG Chloride ABG Glucose Oxyhemoglobin Carboxyhemoglobin Sodium 134 L Potassium Chloride 89.7 L Carbon Dioxide 38 H BUN Creatinine < 0.2 L Glucose 203 H POC Glucose 155 H 239 H Hemoglobin A1c Lactic Acid Calcium 7.5 L Magnesium Ferritin Total Bilirubin AST ALT Alkaline Phosphatase Lactate Dehydrogenase Total Creatine Kinase C-Reactive Protein Total Protein Albumin Triglycerides Arterial Blood Glucose Arterial Blood Ionized Calcium Ur Specific [place] Urine WBC (Auto) Vancomycin Trough Coronavirus (PCR) 12/16/20 12/16/20 12/17/20 17:42 23:45 03:59 WBC RBC Hgb Hct MCHC RDW Plt Count Lymph % (Auto) [place] % (Auto) Lymph # (Auto) [place] # (Auto) Baso # (Auto) Seg Neutrophils % Seg Neuts % (Manual) Lymphocytes % (Manual) Nucleated RBC % Seg Neutrophils # Seg Neutrophils # Man Lymphocytes # (Manual) D-Dimer ABG pH POC ABG pCO2 71.9 H POC ABG pO2 57.5 L ABG pO2 ABG HCO3 ABG O2 Saturation ABG Base Excess ABG Hemoglobin 10.8 L ABG Oxyhemoglobin 87.7 L ABG Sodium 131.5 L ABG Potassium ABG Chloride 90.0 L ABG Glucose 199 H Oxyhemoglobin Carboxyhemoglobin Sodium Potassium Chloride Carbon Dioxide BUN Creatinine Glucose POC Glucose 228 H 187 H Hemoglobin A1c Lactic Acid Calcium Magnesium Ferritin Total Bilirubin AST ALT Alkaline Phosphatase Lactate Dehydrogenase Total Creatine Kinase C-Reactive Protein Total Protein Albumin Triglycerides Arterial Blood Glucose 199 H Arterial Blood Ionized Calcium 4.4 L Ur Specific [place] Urine WBC (Auto) Vancomycin Trough Coronavirus (PCR) 12/17/20 12/17/20 12/17/20 05:35 11:55 12:40 WBC RBC Hgb Hct MCHC RDW Plt Count Lymph % (Auto) [place] % (Auto) Lymph # (Auto) [place] # (Auto) Baso # (Auto) Seg Neutrophils % Seg Neuts % (Manual) Lymphocytes % (Manual) Nucleated RBC % Seg Neutrophils # Seg Neutrophils # Man Lymphocytes # (Manual) D-Dimer ABG pH POC ABG pCO2 POC ABG pO2 ABG pO2 ABG HCO3 ABG O2 Saturation ABG Base Excess ABG Hemoglobin ABG Oxyhemoglobin ABG Sodium ABG Potassium ABG Chloride ABG Glucose Oxyhemoglobin Carboxyhemoglobin Sodium Potassium Chloride 95.2 L Carbon Dioxide 41 H* BUN Creatinine 0.2 L Glucose 138 H POC Glucose 159 H 181 H Hemoglobin A1c Lactic Acid Calcium 7.3 L Magnesium Ferritin Total Bilirubin AST ALT Alkaline Phosphatase Lactate Dehydrogenase Total Creatine Kinase C-Reactive Protein Total Protein Albumin Triglycerides Arterial Blood Glucose Arterial Blood Ionized Calcium Ur Specific [place] Urine WBC (Auto) Vancomycin Trough Coronavirus (PCR) 12/17/20 12/17/20 12/17/20 17:25 17:25 17:51 WBC RBC Hgb Hct MCHC RDW Plt Count Lymph % (Auto) [place] % (Auto) Lymph # (Auto) [place] # (Auto) Baso # (Auto) Seg Neutrophils % Seg Neuts % (Manual) Lymphocytes % (Manual) Nucleated RBC % Seg Neutrophils # Seg Neutrophils # Man Lymphocytes # (Manual) D-Dimer ABG pH POC ABG pCO2 POC ABG pO2 ABG pO2 ABG HCO3 ABG O2 Saturation ABG Base Excess ABG Hemoglobin ABG Oxyhemoglobin ABG Sodium ABG Potassium ABG Chloride ABG Glucose Oxyhemoglobin Carboxyhemoglobin Sodium 134 L Potassium Chloride 89.6 L Carbon Dioxide 44 H* BUN Creatinine 0.2 L Glucose 280 H POC Glucose 260 H Hemoglobin A1c Lactic Acid Calcium 8.0 L Magnesium 1.60 L Ferritin Total Bilirubin AST ALT Alkaline Phosphatase Lactate Dehydrogenase Total Creatine Kinase 47 L C-Reactive Protein Total Protein 6.2 L Albumin 2.1 L Triglycerides Arterial Blood Glucose Arterial Blood Ionized Calcium Ur Specific [place] Urine WBC (Auto) Vancomycin Trough Coronavirus (PCR) 12/18/20 12/18/20 12/18/20 00:12 03:56 04:32 WBC RBC 2.88 L Hgb 8.6 L Hct 26.0 L MCHC RDW 15.6 H Plt Count Lymph % (Auto) [place] % (Auto) Lymph # (Auto) [place] # (Auto) Baso # (Auto) Seg Neutrophils % Seg Neuts % (Manual) Lymphocytes % (Manual) Nucleated RBC % Seg Neutrophils # Seg Neutrophils # Man Lymphocytes # (Manual) D-Dimer ABG pH POC ABG pCO2 78.0 H POC ABG pO2 52.3 L ABG pO2 ABG HCO3 ABG O2 Saturation ABG Base Excess ABG Hemoglobin 11.7 L ABG Oxyhemoglobin 84.9 L ABG Sodium 131.6 L ABG Potassium ABG Chloride 89.0 L ABG Glucose 191 H Oxyhemoglobin Carboxyhemoglobin Sodium Potassium Chloride Carbon Dioxide BUN Creatinine Glucose POC Glucose 197 H Hemoglobin A1c Lactic Acid Calcium Magnesium Ferritin Total Bilirubin AST ALT Alkaline Phosphatase Lactate Dehydrogenase Total Creatine Kinase C-Reactive Protein Total Protein Albumin Triglycerides Arterial Blood Glucose 191 H Arterial Blood Ionized Calcium 4.4 L Ur Specific [place] Urine WBC (Auto) Vancomycin Trough Coronavirus (PCR) 12/18/20 12/18/20 12/18/20 04:32 05:19 08:27 WBC RBC Hgb Hct MCHC RDW Plt Count Lymph % (Auto) [place] % (Auto) Lymph # (Auto) [place] # (Auto) Baso # (Auto) Seg Neutrophils % Seg Neuts % (Manual) Lymphocytes % (Manual) Nucleated RBC % Seg Neutrophils # Seg Neutrophils # Man Lymphocytes # (Manual) D-Dimer ABG pH POC ABG pCO2 POC ABG pO2 ABG pO2 ABG HCO3 ABG O2 Saturation ABG Base Excess ABG Hemoglobin ABG Oxyhemoglobin ABG Sodium ABG Potassium ABG Chloride ABG Glucose Oxyhemoglobin Carboxyhemoglobin Sodium 134 L 131 L Potassium Chloride 89.5 L 89.0 L Carbon Dioxide 43 H* 41 H* BUN Creatinine < 0.2 L < 0.2 L Glucose 182 H 176 H POC Glucose 165 H Hemoglobin A1c Lactic Acid Calcium 8.1 L 7.5 L Magnesium Ferritin Total Bilirubin AST ALT Alkaline Phosphatase Lactate Dehydrogenase Total Creatine Kinase C-Reactive Protein Total Protein Albumin Triglycerides Arterial Blood Glucose Arterial Blood Ionized Calcium Ur Specific [place] Urine WBC (Auto) Vancomycin Trough Coronavirus (PCR) 12/18/20 12/18/20 12/18/20 11:37 17:26 23:19 WBC RBC Hgb Hct MCHC RDW Plt Count Lymph % (Auto) [place] % (Auto) Lymph # (Auto) [place] # (Auto) Baso # (Auto) Seg Neutrophils % Seg Neuts % (Manual) Lymphocytes % (Manual) Nucleated RBC % Seg Neutrophils # Seg Neutrophils # Man Lymphocytes # (Manual) D-Dimer ABG pH POC ABG pCO2 POC ABG pO2 ABG pO2 ABG HCO3 ABG O2 Saturation ABG Base Excess ABG Hemoglobin ABG Oxyhemoglobin ABG Sodium ABG Potassium ABG Chloride ABG Glucose Oxyhemoglobin Carboxyhemoglobin Sodium Potassium Chloride Carbon Dioxide BUN Creatinine Glucose POC Glucose 174 H 243 H 212 H Hemoglobin A1c Lactic Acid Calcium Magnesium Ferritin Total Bilirubin AST ALT Alkaline Phosphatase Lactate Dehydrogenase Total Creatine Kinase C-Reactive Protein Total Protein Albumin Triglycerides Arterial Blood Glucose Arterial Blood Ionized Calcium Ur Specific [place] Urine WBC (Auto) Vancomycin Trough Coronavirus (PCR) 12/19/20 12/19/20 12/19/20 03:41 05:26 11:56 WBC RBC Hgb Hct MCHC RDW Plt Count Lymph % (Auto) [place] % (Auto) Lymph # (Auto) [place] # (Auto) Baso # (Auto) Seg Neutrophils % Seg Neuts % (Manual) Lymphocytes % (Manual) Nucleated RBC % Seg Neutrophils # Seg Neutrophils # Man Lymphocytes # (Manual) D-Dimer ABG pH POC ABG pCO2 75.4 H POC ABG pO2 50.7 L ABG pO2 ABG HCO3 ABG O2 Saturation ABG Base Excess ABG Hemoglobin 10.4 L ABG Oxyhemoglobin 84.2 L ABG Sodium 131.1 L ABG Potassium ABG Chloride 89.0 L ABG Glucose 194 H Oxyhemoglobin Carboxyhemoglobin 1.6 H Sodium Potassium Chloride Carbon Dioxide BUN Creatinine Glucose POC Glucose 166 H 173 H Hemoglobin A1c Lactic Acid Calcium Magnesium Ferritin Total Bilirubin AST ALT Alkaline Phosphatase Lactate Dehydrogenase Total Creatine Kinase C-Reactive Protein Total Protein Albumin Triglycerides Arterial Blood Glucose 194 H Arterial Blood Ionized Calcium 4.3 L Ur Specific [place] Urine WBC (Auto) Vancomycin Trough Coronavirus (PCR) 12/19/20 12/19/20 12/19/20 18:17 23:39 Unknown WBC RBC Hgb Hct MCHC RDW Plt Count Lymph % (Auto) [place] % (Auto) Lymph # (Auto) [place] # (Auto) Baso # (Auto) Seg Neutrophils % Seg Neuts % (Manual) Lymphocytes % (Manual) Nucleated RBC % Seg Neutrophils # Seg Neutrophils # Man Lymphocytes # (Manual) D-Dimer ABG pH POC ABG pCO2 POC ABG pO2 ABG pO2 ABG HCO3 ABG O2 Saturation ABG Base Excess ABG Hemoglobin ABG Oxyhemoglobin ABG Sodium ABG Potassium ABG Chloride ABG Glucose Oxyhemoglobin Carboxyhemoglobin Sodium 133 L Potassium Chloride 89.9 L Carbon Dioxide 39 H BUN Creatinine 0.2 L Glucose 197 H POC Glucose 212 H 133 H Hemoglobin A1c Lactic Acid Calcium 7.6 L Magnesium Ferritin Total Bilirubin AST ALT Alkaline Phosphatase Lactate Dehydrogenase Total Creatine Kinase C-Reactive Protein Total Protein Albumin Triglycerides Arterial Blood Glucose Arterial Blood Ionized Calcium Ur Specific [place] Urine WBC (Auto) Vancomycin Trough Coronavirus (PCR) 12/20/20 12/20/20 12/20/20 03:26 04:00 04:00 WBC RBC 3.21 L Hgb 9.6 L Hct 29.2 L MCHC RDW 15.8 H Plt Count Lymph % (Auto) [place] % (Auto) Lymph # (Auto) [place] # (Auto) Baso # (Auto) Seg Neutrophils % Seg Neuts % (Manual) Lymphocytes % (Manual) Nucleated RBC % Seg Neutrophils # Seg Neutrophils # Man Lymphocytes # (Manual) D-Dimer ABG pH POC ABG pCO2 74.2 H POC ABG pO2 51.3 L ABG pO2 ABG HCO3 ABG O2 Saturation ABG Base Excess ABG Hemoglobin 10.0 L ABG Oxyhemoglobin ABG Sodium 128.9 L ABG Potassium ABG Chloride 87.0 L ABG Glucose 173 H Oxyhemoglobin Carboxyhemoglobin Sodium 132 L Potassium Chloride 86.0 L Carbon Dioxide 43 H* BUN Creatinine 0.2 L Glucose 193 H POC Glucose Hemoglobin A1c Lactic Acid Calcium 7.6 L Magnesium Ferritin Total Bilirubin AST ALT Alkaline Phosphatase Lactate Dehydrogenase Total Creatine Kinase C-Reactive Protein Total Protein Albumin Triglycerides Arterial Blood Glucose 173 H Arterial Blood Ionized Calcium 4.1 L Ur Specific [place] Urine WBC (Auto) Vancomycin Trough Coronavirus (PCR) 12/20/20 12/20/20 12/20/20 05:05 11:47 18:18 WBC RBC Hgb Hct MCHC RDW Plt Count Lymph % (Auto) [place] % (Auto) Lymph # (Auto) [place] # (Auto) Baso # (Auto) Seg Neutrophils % Seg Neuts % (Manual) Lymphocytes % (Manual) Nucleated RBC % Seg Neutrophils # Seg Neutrophils # Man Lymphocytes # (Manual) D-Dimer ABG pH POC ABG pCO2 POC ABG pO2 ABG pO2 ABG HCO3 ABG O2 Saturation ABG Base Excess ABG Hemoglobin ABG Oxyhemoglobin ABG Sodium ABG Potassium ABG Chloride ABG Glucose Oxyhemoglobin Carboxyhemoglobin Sodium Potassium Chloride Carbon Dioxide BUN Creatinine Glucose POC Glucose 171 H 238 H 205 H Hemoglobin A1c Lactic Acid Calcium Magnesium Ferritin Total Bilirubin AST ALT Alkaline Phosphatase Lactate Dehydrogenase Total Creatine Kinase C-Reactive Protein Total Protein Albumin Triglycerides Arterial Blood Glucose Arterial Blood Ionized Calcium Ur Specific [place] Urine WBC (Auto) Vancomycin Trough Coronavirus (PCR) 12/20/20 12/21/20 12/21/20 23:41 03:30 05:37 WBC RBC Hgb Hct MCHC RDW Plt Count Lymph % (Auto) [place] % (Auto) Lymph # (Auto) [place] # (Auto) Baso # (Auto) Seg Neutrophils % Seg Neuts % (Manual) Lymphocytes % (Manual) Nucleated RBC % Seg Neutrophils # Seg Neutrophils # Man Lymphocytes # (Manual) D-Dimer ABG pH POC ABG pCO2 73.4 H POC ABG pO2 63.0 L ABG pO2 ABG HCO3 ABG O2 Saturation ABG Base Excess ABG Hemoglobin 10.1 L ABG Oxyhemoglobin ABG Sodium 130.5 L ABG Potassium ABG Chloride 89.0 L ABG Glucose 171 H Oxyhemoglobin Carboxyhemoglobin Sodium Potassium Chloride Carbon Dioxide BUN Creatinine Glucose POC Glucose 167 H 152 H Hemoglobin A1c Lactic Acid Calcium Magnesium Ferritin Total Bilirubin AST ALT Alkaline Phosphatase Lactate Dehydrogenase Total Creatine Kinase C-Reactive Protein Total Protein Albumin Triglycerides Arterial Blood Glucose 171 H Arterial Blood Ionized Calcium 4.2 L Ur Specific [place] Urine WBC (Auto) Vancomycin Trough Coronavirus (PCR) 12/21/20 12/21/20 12/21/20 09:57 12:54 18:00 WBC RBC Hgb Hct MCHC RDW Plt Count Lymph % (Auto) [place] % (Auto) Lymph # (Auto) [place] # (Auto) Baso # (Auto) Seg Neutrophils % Seg Neuts % (Manual) Lymphocytes % (Manual) Nucleated RBC % Seg Neutrophils # Seg Neutrophils # Man Lymphocytes # (Manual) D-Dimer ABG pH POC ABG pCO2 POC ABG pO2 ABG pO2 ABG HCO3 ABG O2 Saturation ABG Base Excess ABG Hemoglobin ABG Oxyhemoglobin ABG Sodium ABG Potassium ABG Chloride ABG Glucose Oxyhemoglobin Carboxyhemoglobin Sodium 132 L Potassium Chloride 87.7 L Carbon Dioxide 42 H* BUN Creatinine 0.2 L Glucose 207 H POC Glucose 199 H 217 H Hemoglobin A1c Lactic Acid Calcium 7.7 L Magnesium Ferritin Total Bilirubin AST ALT Alkaline Phosphatase Lactate Dehydrogenase Total Creatine Kinase C-Reactive Protein Total Protein Albumin Triglycerides Arterial Blood Glucose Arterial Blood Ionized Calcium Ur Specific [place] Urine WBC (Auto) Vancomycin Trough Coronavirus (PCR) 12/21/20 12/22/20 12/22/20 Unknown 00:02 04:08 WBC RBC Hgb Hct MCHC RDW Plt Count Lymph % (Auto) [place] % (Auto) Lymph # (Auto) [place] # (Auto) Baso # (Auto) Seg Neutrophils % Seg Neuts % (Manual) Lymphocytes % (Manual) Nucleated RBC % Seg Neutrophils # Seg Neutrophils # Man Lymphocytes # (Manual) D-Dimer ABG pH POC ABG pCO2 67.6 H POC ABG pO2 57.3 L ABG pO2 ABG HCO3 ABG O2 Saturation ABG Base Excess ABG Hemoglobin ABG Oxyhemoglobin ABG Sodium 130.9 L ABG Potassium ABG Chloride 92.0 L ABG Glucose 163 H Oxyhemoglobin Carboxyhemoglobin Sodium Potassium Chloride Carbon Dioxide BUN Creatinine Glucose POC Glucose 172 H Hemoglobin A1c Lactic Acid Calcium Magnesium Ferritin Total Bilirubin AST ALT Alkaline Phosphatase Lactate Dehydrogenase Total Creatine Kinase C-Reactive Protein Total Protein Albumin Triglycerides Arterial Blood Glucose 163 H Arterial Blood Ionized Calcium 4.2 L Ur Specific [place] Urine WBC (Auto) 172.0 H Vancomycin Trough Coronavirus (PCR) 12/22/20 12/22/20 12/22/20 05:19 11:33 17:20 WBC RBC Hgb Hct MCHC RDW Plt Count Lymph % (Auto) [place] % (Auto) Lymph # (Auto) [place] # (Auto) Baso # (Auto) Seg Neutrophils % Seg Neuts % (Manual) Lymphocytes % (Manual) Nucleated RBC % Seg Neutrophils # Seg Neutrophils # Man Lymphocytes # (Manual) D-Dimer ABG pH POC ABG pCO2 POC ABG pO2 ABG pO2 ABG HCO3 ABG O2 Saturation ABG Base Excess ABG Hemoglobin ABG Oxyhemoglobin ABG Sodium ABG Potassium ABG Chloride ABG Glucose Oxyhemoglobin Carboxyhemoglobin Sodium Potassium Chloride Carbon Dioxide BUN Creatinine Glucose POC Glucose 151 H 181 H 166 H Hemoglobin A1c Lactic Acid Calcium Magnesium Ferritin Total Bilirubin AST ALT Alkaline Phosphatase Lactate Dehydrogenase Total Creatine Kinase C-Reactive Protein Total Protein Albumin Triglycerides Arterial Blood Glucose Arterial Blood Ionized Calcium Ur Specific [place] Urine WBC (Auto) Vancomycin Trough Coronavirus (PCR) 12/22/20 12/23/20 12/23/20 23:25 05:19 05:32 WBC RBC Hgb Hct MCHC RDW Plt Count Lymph % (Auto) [place] % (Auto) Lymph # (Auto) [place] # (Auto) Baso # (Auto) Seg Neutrophils % Seg Neuts % (Manual) Lymphocytes % (Manual) Nucleated RBC % Seg Neutrophils # Seg Neutrophils # Man Lymphocytes # (Manual) D-Dimer ABG pH POC ABG pCO2 67.7 H POC ABG pO2 53.7 L ABG pO2 ABG HCO3 ABG O2 Saturation ABG Base Excess ABG Hemoglobin 9.6 L ABG Oxyhemoglobin ABG Sodium 130.2 L ABG Potassium ABG Chloride 88.0 L ABG Glucose 195 H Oxyhemoglobin Carboxyhemoglobin Sodium Potassium Chloride Carbon Dioxide BUN Creatinine Glucose POC Glucose 121 H 167 H Hemoglobin A1c Lactic Acid Calcium Magnesium Ferritin Total Bilirubin AST ALT Alkaline Phosphatase Lactate Dehydrogenase Total Creatine Kinase C-Reactive Protein Total Protein Albumin Triglycerides Arterial Blood Glucose 195 H Arterial Blood Ionized Calcium 4.1 L Ur Specific [place] Urine WBC (Auto) Vancomycin Trough Coronavirus (PCR) 12/23/20 12/23/20 12/23/20 06:07 11:21 18:10 WBC RBC Hgb Hct MCHC RDW Plt Count Lymph % (Auto) [place] % (Auto) Lymph # (Auto) [place] # (Auto) Baso # (Auto) Seg Neutrophils % Seg Neuts % (Manual) Lymphocytes % (Manual) Nucleated RBC % Seg Neutrophils # Seg Neutrophils # Man Lymphocytes # (Manual) D-Dimer ABG pH POC ABG pCO2 POC ABG pO2 ABG pO2 ABG HCO3 ABG O2 Saturation ABG Base Excess ABG Hemoglobin ABG Oxyhemoglobin ABG Sodium ABG Potassium ABG Chloride ABG Glucose Oxyhemoglobin Carboxyhemoglobin Sodium 135 L Potassium Chloride 89.3 L Carbon Dioxide 43 H* BUN Creatinine 0.2 L Glucose 193 H POC Glucose 155 H 178 H Hemoglobin A1c Lactic Acid Calcium 7.4 L Magnesium Ferritin Total Bilirubin AST ALT Alkaline Phosphatase Lactate Dehydrogenase Total Creatine Kinase C-Reactive Protein Total Protein Albumin Triglycerides Arterial Blood Glucose Arterial Blood Ionized Calcium Ur Specific [place] Urine WBC (Auto) Vancomycin Trough Coronavirus (PCR) 12/23/20 12/24/20 12/24/20 23:21 04:49 05:00 WBC RBC Hgb Hct MCHC RDW Plt Count Lymph % (Auto) [place] % (Auto) Lymph # (Auto) [place] # (Auto) Baso # (Auto) Seg Neutrophils % Seg Neuts % (Manual) Lymphocytes % (Manual) Nucleated RBC % Seg Neutrophils # Seg Neutrophils # Man Lymphocytes # (Manual) D-Dimer ABG pH POC ABG pCO2 75.5 H POC ABG pO2 50.5 L ABG pO2 ABG HCO3 ABG O2 Saturation ABG Base Excess ABG Hemoglobin 8.8 L ABG Oxyhemoglobin 86.3 L ABG Sodium 131.6 L ABG Potassium ABG Chloride 88.0 L ABG Glucose 186 H Oxyhemoglobin Carboxyhemoglobin 2.1 H Sodium Potassium Chloride Carbon Dioxide BUN Creatinine Glucose POC Glucose 126 H Hemoglobin A1c Lactic Acid Calcium Magnesium Ferritin Total Bilirubin AST ALT Alkaline Phosphatase Lactate Dehydrogenase Total Creatine Kinase C-Reactive Protein Total Protein Albumin Triglycerides 486 H Arterial Blood Glucose 186 H Arterial Blood Ionized Calcium 4.0 L Ur Specific [place] Urine WBC (Auto) Vancomycin Trough Coronavirus (PCR) 12/24/20 12/24/20 12/24/20 05:19 11:57 16:44 WBC RBC Hgb Hct MCHC RDW Plt Count Lymph % (Auto) [place] % (Auto) Lymph # (Auto) [place] # (Auto) Baso # (Auto) Seg Neutrophils % Seg Neuts % (Manual) Lymphocytes % (Manual) Nucleated RBC % Seg Neutrophils # Seg Neutrophils # Man Lymphocytes # (Manual) D-Dimer ABG pH POC ABG pCO2 POC ABG pO2 ABG pO2 ABG HCO3 ABG O2 Saturation ABG Base Excess ABG Hemoglobin ABG Oxyhemoglobin ABG Sodium ABG Potassium ABG Chloride ABG Glucose Oxyhemoglobin Carboxyhemoglobin Sodium Potassium Chloride Carbon Dioxide BUN Creatinine Glucose POC Glucose 162 H 163 H 191 H Hemoglobin A1c Lactic Acid Calcium Magnesium Ferritin Total Bilirubin AST ALT Alkaline Phosphatase Lactate Dehydrogenase Total Creatine Kinase C-Reactive Protein Total Protein Albumin Triglycerides Arterial Blood Glucose Arterial Blood Ionized Calcium Ur Specific [place] Urine WBC (Auto) Vancomycin Trough Coronavirus (PCR) 12/24/20 12/24/20 12/24/20 17:28 18:57 20:48 WBC 19.1 H RBC 2.91 L Hgb 8.3 L Hct 26.0 L MCHC RDW 16.0 H Plt Count Lymph % (Auto) [place] % (Auto) Lymph # (Auto) [place] # (Auto) Baso # (Auto) Seg Neutrophils % Seg Neuts % (Manual) 92.0 H Lymphocytes % (Manual) 5.0 L Nucleated RBC % Seg Neutrophils # Seg Neutrophils # Man 17.6 H Lymphocytes # (Manual) 1.0 L D-Dimer ABG pH 7.250 L POC ABG pCO2 102.6 H 82.1 H POC ABG pO2 42.4 L 38.6 L ABG pO2 ABG HCO3 ABG O2 Saturation ABG Base Excess ABG Hemoglobin 9.0 L 9.3 L ABG Oxyhemoglobin 69.9 L 70.8 L ABG Sodium 131.1 L 130.7 L ABG Potassium ABG Chloride 89.0 L 89.0 L ABG Glucose 211 H 226 H Oxyhemoglobin Carboxyhemoglobin 1.7 H 1.8 H Sodium Potassium Chloride Carbon Dioxide BUN Creatinine Glucose POC Glucose Hemoglobin A1c Lactic Acid Calcium Magnesium Ferritin Total Bilirubin AST ALT Alkaline Phosphatase Lactate Dehydrogenase Total Creatine Kinase C-Reactive Protein Total Protein Albumin Triglycerides Arterial Blood Glucose 211 H 226 H Arterial Blood Ionized Calcium 4.0 L 4.1 L Ur Specific [place] Urine WBC (Auto) Vancomycin Trough Coronavirus (PCR) 12/24/20 12/25/20 12/25/20 23:31 04:04 06:31 WBC RBC Hgb Hct MCHC RDW Plt Count Lymph % (Auto) [place] % (Auto) Lymph # (Auto) [place] # (Auto) Baso # (Auto) Seg Neutrophils % Seg Neuts % (Manual) Lymphocytes % (Manual) Nucleated RBC % Seg Neutrophils # Seg Neutrophils # Man Lymphocytes # (Manual) D-Dimer ABG pH POC ABG pCO2 75.6 H POC ABG pO2 43.3 L ABG pO2 ABG HCO3 ABG O2 Saturation ABG Base Excess ABG Hemoglobin 10.6 L ABG Oxyhemoglobin 77.6 L ABG Sodium 131.4 L ABG Potassium ABG Chloride 90.0 L ABG Glucose 185 H Oxyhemoglobin Carboxyhemoglobin 2.4 H Sodium Potassium Chloride Carbon Dioxide BUN Creatinine Glucose POC Glucose 181 H 153 H Hemoglobin A1c Lactic Acid Calcium Magnesium Ferritin Total Bilirubin AST ALT Alkaline Phosphatase Lactate Dehydrogenase Total Creatine Kinase C-Reactive Protein Total Protein Albumin Triglycerides Arterial Blood Glucose 185 H Arterial Blood Ionized Calcium 4.1 L Ur Specific [place] Urine WBC (Auto) Vancomycin Trough Coronavirus (PCR) 12/25/20 12/25/20 12/25/20 11:17 11:17 11:17 WBC 19.6 H RBC 2.82 L Hgb 8.1 L Hct 25.2 L MCHC RDW 16.2 H Plt Count Lymph % (Auto) [place] % (Auto) Lymph # (Auto) [place] # (Auto) Baso # (Auto) Seg Neutrophils % Seg Neuts % (Manual) Lymphocytes % (Manual) Nucleated RBC % Seg Neutrophils # Seg Neutrophils # Man Lymphocytes # (Manual) D-Dimer ABG pH POC ABG pCO2 POC ABG pO2 ABG pO2 ABG HCO3 ABG O2 Saturation ABG Base Excess ABG Hemoglobin ABG Oxyhemoglobin ABG Sodium ABG Potassium ABG Chloride ABG Glucose Oxyhemoglobin Carboxyhemoglobin Sodium 136 L Potassium Chloride 92.3 L Carbon Dioxide 44 H* BUN Creatinine 0.3 L Glucose 240 H POC Glucose Hemoglobin A1c Lactic Acid Calcium 7.3 L Magnesium Ferritin Total Bilirubin AST ALT Alkaline Phosphatase Lactate Dehydrogenase Total Creatine Kinase C-Reactive Protein Total Protein Albumin Triglycerides 328 H Arterial Blood Glucose Arterial Blood Ionized Calcium Ur Specific [place] Urine WBC (Auto) Vancomycin Trough Coronavirus (PCR) 12/25/20 12/25/20 12/25/20 12:07 17:52 21:49 WBC RBC Hgb Hct MCHC RDW Plt Count Lymph % (Auto) [place] % (Auto) Lymph # (Auto) [place] # (Auto) Baso # (Auto) Seg Neutrophils % Seg Neuts % (Manual) Lymphocytes % (Manual) Nucleated RBC % Seg Neutrophils # Seg Neutrophils # Man Lymphocytes # (Manual) D-Dimer ABG pH POC ABG pCO2 POC ABG pO2 ABG pO2 ABG HCO3 ABG O2 Saturation ABG Base Excess ABG Hemoglobin ABG Oxyhemoglobin ABG Sodium ABG Potassium ABG Chloride ABG Glucose Oxyhemoglobin Carboxyhemoglobin Sodium Potassium Chloride Carbon Dioxide BUN Creatinine Glucose POC Glucose 210 H 188 H 152 H Hemoglobin A1c Lactic Acid Calcium Magnesium Ferritin Total Bilirubin AST ALT Alkaline Phosphatase Lactate Dehydrogenase Total Creatine Kinase C-Reactive Protein Total Protein Albumin Triglycerides Arterial Blood Glucose Arterial Blood Ionized Calcium Ur Specific [place] Urine WBC (Auto) Vancomycin Trough Coronavirus (PCR) 12/25/20 12/26/20 12/26/20 23:47 04:00 05:20 WBC RBC Hgb Hct MCHC RDW Plt Count Lymph % (Auto) [place] % (Auto) Lymph # (Auto) [place] # (Auto) Baso # (Auto) Seg Neutrophils % Seg Neuts % (Manual) Lymphocytes % (Manual) Nucleated RBC % Seg Neutrophils # Seg Neutrophils # Man Lymphocytes # (Manual) D-Dimer ABG pH POC ABG pCO2 73.4 H POC ABG pO2 58.8 L ABG pO2 ABG HCO3 ABG O2 Saturation ABG Base Excess ABG Hemoglobin 7.4 L ABG Oxyhemoglobin ABG Sodium 135.2 L ABG Potassium ABG Chloride 96.0 L ABG Glucose 164 H Oxyhemoglobin Carboxyhemoglobin Sodium Potassium Chloride Carbon Dioxide BUN Creatinine Glucose POC Glucose 138 H 147 H Hemoglobin A1c Lactic Acid Calcium Magnesium Ferritin Total Bilirubin AST ALT Alkaline Phosphatase Lactate Dehydrogenase Total Creatine Kinase C-Reactive Protein Total Protein Albumin Triglycerides Arterial Blood Glucose 164 H Arterial Blood Ionized Calcium 4.1 L Ur Specific [place] Urine WBC (Auto) Vancomycin Trough Coronavirus (PCR) 12/26/20 12/26/20 12/26/20 05:26 05:26 05:26 WBC 16.2 H RBC 2.75 L Hgb 7.8 L Hct 24.1 L MCHC RDW 16.3 H Plt Count 451 H Lymph % (Auto) [place] % (Auto) Lymph # (Auto) [place] # (Auto) Baso # (Auto) Seg Neutrophils % Seg Neuts % (Manual) 87.0 H Lymphocytes % (Manual) Nucleated RBC % 5.0 H Seg Neutrophils # Seg Neutrophils # Man 14.1 H Lymphocytes # (Manual) 0.0 L D-Dimer ABG pH POC ABG pCO2 POC ABG pO2 ABG pO2 ABG HCO3 ABG O2 Saturation ABG Base Excess ABG Hemoglobin ABG Oxyhemoglobin ABG Sodium ABG Potassium ABG Chloride ABG Glucose Oxyhemoglobin Carboxyhemoglobin Sodium Potassium Chloride 95.2 L Carbon Dioxide 44 H* BUN Creatinine 0.2 L Glucose 155 H POC Glucose Hemoglobin A1c Lactic Acid Calcium 7.4 L Magnesium Ferritin Total Bilirubin AST ALT Alkaline Phosphatase Lactate Dehydrogenase Total Creatine Kinase C-Reactive Protein Total Protein 6.0 L Albumin 1.6 L Triglycerides 307 H Arterial Blood Glucose Arterial Blood Ionized Calcium Ur Specific [place] Urine WBC (Auto) Vancomycin Trough Coronavirus (PCR) 12/26/20 12/26/20 12/26/20 11:21 17:26 23:22 WBC RBC Hgb Hct MCHC RDW Plt Count Lymph % (Auto) [place] % (Auto) Lymph # (Auto) [place] # (Auto) Baso # (Auto) Seg Neutrophils % Seg Neuts % (Manual) Lymphocytes % (Manual) Nucleated RBC % Seg Neutrophils # Seg Neutrophils # Man Lymphocytes # (Manual) D-Dimer ABG pH POC ABG pCO2 POC ABG pO2 ABG pO2 ABG HCO3 ABG O2 Saturation ABG Base Excess ABG Hemoglobin ABG Oxyhemoglobin ABG Sodium ABG Potassium ABG Chloride ABG Glucose Oxyhemoglobin Carboxyhemoglobin Sodium Potassium Chloride Carbon Dioxide BUN Creatinine Glucose POC Glucose 127 H 134 H 125 H Hemoglobin A1c Lactic Acid Calcium Magnesium Ferritin Total Bilirubin AST ALT Alkaline Phosphatase Lactate Dehydrogenase Total Creatine Kinase C-Reactive Protein Total Protein Albumin Triglycerides Arterial Blood Glucose Arterial Blood Ionized Calcium Ur Specific [place] Urine WBC (Auto) Vancomycin Trough Coronavirus (PCR) 12/27/20 12/27/20 12/27/20 03:19 05:17 10:52 WBC RBC Hgb Hct MCHC RDW Plt Count Lymph % (Auto) [place] % (Auto) Lymph # (Auto) [place] # (Auto) Baso # (Auto) Seg Neutrophils % Seg Neuts % (Manual) Lymphocytes % (Manual) Nucleated RBC % Seg Neutrophils # Seg Neutrophils # Man Lymphocytes # (Manual) D-Dimer ABG pH POC ABG pCO2 75.0 H POC ABG pO2 74.3 L ABG pO2 ABG HCO3 ABG O2 Saturation ABG Base Excess ABG Hemoglobin 7.3 L ABG Oxyhemoglobin 92.8 L ABG Sodium 135.6 L ABG Potassium ABG Chloride ABG Glucose 151 H Oxyhemoglobin Carboxyhemoglobin 2.0 H Sodium 136 L Potassium Chloride 96.8 L Carbon Dioxide 38 H BUN Creatinine 0.2 L Glucose 139 H POC Glucose 121 H Hemoglobin A1c Lactic Acid Calcium 7.0 L Magnesium Ferritin Total Bilirubin AST 52 H ALT Alkaline Phosphatase Lactate Dehydrogenase Total Creatine Kinase C-Reactive Protein Total Protein 4.7 L D Albumin 1.1 L Triglycerides Arterial Blood Glucose 151 H Arterial Blood Ionized Calcium 4.2 L Ur Specific [place] Urine WBC (Auto) Vancomycin Trough Coronavirus (PCR) 12/27/20 12/27/20 12/27/20 12:02 14:09 17:36 WBC 14.4 H RBC 2.82 L Hgb 8.0 L Hct 25.6 L MCHC 31 L RDW 16.4 H Plt Count 442 H Lymph % (Auto) [place] % (Auto) Lymph # (Auto) [place] # (Auto) Baso # (Auto) Seg Neutrophils % Seg Neuts % (Manual) 36.0 L Lymphocytes % (Manual) 7.0 L Nucleated RBC % 18.0 H Seg Neutrophils # Seg Neutrophils # Man Lymphocytes # (Manual) 1.0 L D-Dimer ABG pH POC ABG pCO2 POC ABG pO2 ABG pO2 ABG HCO3 ABG O2 Saturation ABG Base Excess ABG Hemoglobin ABG Oxyhemoglobin ABG Sodium ABG Potassium ABG Chloride ABG Glucose Oxyhemoglobin Carboxyhemoglobin Sodium Potassium Chloride Carbon Dioxide BUN Creatinine Glucose POC Glucose 126 H 107 H Hemoglobin A1c Lactic Acid Calcium Magnesium Ferritin Total Bilirubin AST ALT Alkaline Phosphatase Lactate Dehydrogenase Total Creatine Kinase C-Reactive Protein Total Protein Albumin Triglycerides Arterial Blood Glucose Arterial Blood Ionized Calcium Ur Specific [place] Urine WBC (Auto) Vancomycin Trough Coronavirus (PCR) 12/27/20 12/28/20 12/28/20 22:58 03:48 05:45 WBC 13.4 H RBC 2.78 L Hgb 7.9 L Hct 25.1 L MCHC RDW 16.4 H Plt Count 484 H Lymph % (Auto) [place] % (Auto) Lymph # (Auto) [place] # (Auto) Baso # (Auto) Seg Neutrophils % Seg Neuts % (Manual) 86.0 H Lymphocytes % (Manual) 2.0 L Nucleated RBC % 2.0 H Seg Neutrophils # Seg Neutrophils # Man 11.5 H Lymphocytes # (Manual) 0.3 L D-Dimer ABG pH POC ABG pCO2 73.1 H POC ABG pO2 66.2 L ABG pO2 ABG HCO3 ABG O2 Saturation ABG Base Excess ABG Hemoglobin 8.9 L ABG Oxyhemoglobin 90.3 L ABG Sodium ABG Potassium 3.3 L ABG Chloride ABG Glucose 107 H Oxyhemoglobin Carboxyhemoglobin 1.6 H Sodium Potassium Chloride Carbon Dioxide BUN Creatinine Glucose POC Glucose 130 H Hemoglobin A1c Lactic Acid Calcium Magnesium Ferritin Total Bilirubin AST ALT Alkaline Phosphatase Lactate Dehydrogenase Total Creatine Kinase C-Reactive Protein Total Protein Albumin Triglycerides Arterial Blood Glucose 107 H Arterial Blood Ionized Calcium 4.4 L Ur Specific [place] Urine WBC (Auto) Vancomycin Trough Coronavirus (PCR) 12/28/20 12/29/20 12/29/20 05:45 04:00 04:00 WBC 18.0 H RBC 2.80 L Hgb 8.0 L Hct 25.3 L MCHC RDW 17.1 H Plt Count 486 H Lymph % (Auto) [place] % (Auto) Lymph # (Auto) [place] # (Auto) Baso # (Auto) Seg Neutrophils % Seg Neuts % (Manual) 83.0 H Lymphocytes % (Manual) 10.0 L Nucleated RBC % 2.0 H Seg Neutrophils # Seg Neutrophils # Man 14.9 H Lymphocytes # (Manual) D-Dimer ABG pH POC ABG pCO2 POC ABG pO2 ABG pO2 ABG HCO3 ABG O2 Saturation ABG Base Excess ABG Hemoglobin ABG Oxyhemoglobin ABG Sodium ABG Potassium ABG Chloride ABG Glucose Oxyhemoglobin Carboxyhemoglobin Sodium Potassium 3.2 L D Chloride Carbon Dioxide 41 H* 38 H BUN Creatinine 0.3 L 0.3 L Glucose 135 H POC Glucose Hemoglobin A1c Lactic Acid Calcium 7.3 L 7.5 L Magnesium Ferritin Total Bilirubin AST ALT Alkaline Phosphatase Lactate Dehydrogenase Total Creatine Kinase C-Reactive Protein Total Protein 6.0 L D 6.1 L Albumin 1.4 L 1.5 L Triglycerides 284 H Arterial Blood Glucose Arterial Blood Ionized Calcium Ur Specific [place] Urine WBC (Auto) Vancomycin Trough Coronavirus (PCR) 12/29/20 12/29/20 12/29/20 04:00 05:42 11:54 WBC RBC Hgb Hct MCHC RDW Plt Count Lymph % (Auto) [place] % (Auto) Lymph # (Auto) [place] # (Auto) Baso # (Auto) Seg Neutrophils % Seg Neuts % (Manual) Lymphocytes % (Manual) Nucleated RBC % Seg Neutrophils # Seg Neutrophils # Man Lymphocytes # (Manual) D-Dimer ABG pH 7.319 L POC ABG pCO2 71.0 H POC ABG pO2 65.2 L ABG pO2 ABG HCO3 ABG O2 Saturation ABG Base Excess ABG Hemoglobin 8.7 L ABG Oxyhemoglobin ABG Sodium ABG Potassium ABG Chloride ABG Glucose 140 H Oxyhemoglobin Carboxyhemoglobin Sodium Potassium Chloride Carbon Dioxide BUN Creatinine Glucose POC Glucose 126 H 128 H Hemoglobin A1c Lactic Acid Calcium Magnesium Ferritin Total Bilirubin AST ALT Alkaline Phosphatase Lactate Dehydrogenase Total Creatine Kinase C-Reactive Protein Total Protein Albumin Triglycerides Arterial Blood Glucose 140 H Arterial Blood Ionized Calcium 4.3 L Ur Specific [place] Urine WBC (Auto) Vancomycin Trough Coronavirus (PCR) 12/29/20 12/29/20 12/30/20 17:54 23:47 04:00 WBC 15.0 H RBC 2.89 L Hgb 8.2 L Hct 26.1 L MCHC RDW 17.3 H Plt Count Lymph % (Auto) 9.2 L [place] % (Auto) Lymph # (Auto) [place] # (Auto) Baso # (Auto) Seg Neutrophils % 87.0 H Seg Neuts % (Manual) Lymphocytes % (Manual) Nucleated RBC % Seg Neutrophils # 13.1 H Seg Neutrophils # Man Lymphocytes # (Manual) D-Dimer ABG pH POC ABG pCO2 POC ABG pO2 ABG pO2 ABG HCO3 ABG O2 Saturation ABG Base Excess ABG Hemoglobin ABG Oxyhemoglobin ABG Sodium ABG Potassium ABG Chloride ABG Glucose Oxyhemoglobin Carboxyhemoglobin Sodium Potassium Chloride Carbon Dioxide BUN Creatinine Glucose POC Glucose 155 H 139 H Hemoglobin A1c Lactic Acid Calcium Magnesium Ferritin Total Bilirubin AST ALT Alkaline Phosphatase Lactate Dehydrogenase Total Creatine Kinase C-Reactive Protein Total Protein Albumin Triglycerides Arterial Blood Glucose Arterial Blood Ionized Calcium Ur Specific [place] Urine WBC (Auto) Vancomycin Trough Coronavirus (PCR) 12/30/20 12/30/20 12/30/20 04:00 04:14 05:25 WBC RBC Hgb Hct MCHC RDW Plt Count Lymph % (Auto) [place] % (Auto) Lymph # (Auto) [place] # (Auto) Baso # (Auto) Seg Neutrophils % Seg Neuts % (Manual) Lymphocytes % (Manual) Nucleated RBC % Seg Neutrophils # Seg Neutrophils # Man Lymphocytes # (Manual) D-Dimer ABG pH POC ABG pCO2 69.3 H POC ABG pO2 61.3 L ABG pO2 ABG HCO3 ABG O2 Saturation ABG Base Excess ABG Hemoglobin 9.1 L ABG Oxyhemoglobin 88.0 L ABG Sodium ABG Potassium ABG Chloride ABG Glucose 159 H Oxyhemoglobin Carboxyhemoglobin 1.8 H Sodium Potassium Chloride Carbon Dioxide 37 H BUN Creatinine 0.3 L Glucose 156 H POC Glucose 141 H Hemoglobin A1c Lactic Acid Calcium 7.6 L Magnesium Ferritin Total Bilirubin AST ALT Alkaline Phosphatase Lactate Dehydrogenase Total Creatine Kinase C-Reactive Protein Total Protein 6.0 L Albumin 1.4 L Triglycerides Arterial Blood Glucose 159 H Arterial Blood Ionized Calcium 4.4 L Ur Specific [place] Urine WBC (Auto) Vancomycin Trough Coronavirus (PCR) 12/30/20 12/30/20 12/30/20 12:18 17:37 23:55 WBC RBC Hgb Hct MCHC RDW Plt Count Lymph % (Auto) [place] % (Auto) Lymph # (Auto) [place] # (Auto) Baso # (Auto) Seg Neutrophils % Seg Neuts % (Manual) Lymphocytes % (Manual) Nucleated RBC % Seg Neutrophils # Seg Neutrophils # Man Lymphocytes # (Manual) D-Dimer ABG pH POC ABG pCO2 POC ABG pO2 ABG pO2 ABG HCO3 ABG O2 Saturation ABG Base Excess ABG Hemoglobin ABG Oxyhemoglobin ABG Sodium ABG Potassium ABG Chloride ABG Glucose Oxyhemoglobin Carboxyhemoglobin Sodium Potassium Chloride Carbon Dioxide BUN Creatinine Glucose POC Glucose 147 H 167 H 141 H Hemoglobin A1c Lactic Acid Calcium Magnesium Ferritin Total Bilirubin AST ALT Alkaline Phosphatase Lactate Dehydrogenase Total Creatine Kinase C-Reactive Protein Total Protein Albumin Triglycerides Arterial Blood Glucose Arterial Blood Ionized Calcium Ur Specific [place] Urine WBC (Auto) Vancomycin Trough Coronavirus (PCR) 12/31/20 12/31/20 12/31/20 04:00 05:32 06:19 WBC RBC Hgb Hct MCHC RDW Plt Count Lymph % (Auto) [place] % (Auto) Lymph # (Auto) [place] # (Auto) Baso # (Auto) Seg Neutrophils % Seg Neuts % (Manual) Lymphocytes % (Manual) Nucleated RBC % Seg Neutrophils # Seg Neutrophils # Man Lymphocytes # (Manual) D-Dimer ABG pH 7.316 L POC ABG pCO2 POC ABG pO2 ABG pO2 56.9 L ABG HCO3 38.0 H ABG O2 Saturation 90.4 L ABG Base Excess 11.1 H ABG Hemoglobin 5.1 L ABG Oxyhemoglobin ABG Sodium ABG Potassium ABG Chloride ABG Glucose Oxyhemoglobin 87.7 L Carboxyhemoglobin Sodium Potassium Chloride Carbon Dioxide 37 H BUN Creatinine 0.3 L Glucose 152 H POC Glucose 158 H Hemoglobin A1c Lactic Acid Calcium 7.3 L Magnesium Ferritin Total Bilirubin AST ALT Alkaline Phosphatase Lactate Dehydrogenase Total Creatine Kinase C-Reactive Protein Total Protein 6.1 L Albumin 1.4 L Triglycerides Arterial Blood Glucose Arterial Blood Ionized Calcium Ur Specific [place] Urine WBC (Auto) Vancomycin Trough Coronavirus (PCR) 12/31/20 12/31/20 12/31/20 12:22 18:17 23:37 WBC RBC Hgb Hct MCHC RDW Plt Count Lymph % (Auto) [place] % (Auto) Lymph # (Auto) [place] # (Auto) Baso # (Auto) Seg Neutrophils % Seg Neuts % (Manual) Lymphocytes % (Manual) Nucleated RBC % Seg Neutrophils # Seg Neutrophils # Man Lymphocytes # (Manual) D-Dimer ABG pH POC ABG pCO2 POC ABG pO2 ABG pO2 ABG HCO3 ABG O2 Saturation ABG Base Excess ABG Hemoglobin ABG Oxyhemoglobin ABG Sodium ABG Potassium ABG Chloride ABG Glucose Oxyhemoglobin Carboxyhemoglobin Sodium Potassium Chloride Carbon Dioxide BUN Creatinine Glucose POC Glucose 131 H 136 H 139 H Hemoglobin A1c Lactic Acid Calcium Magnesium Ferritin Total Bilirubin AST ALT Alkaline Phosphatase Lactate Dehydrogenase Total Creatine Kinase C-Reactive Protein Total Protein Albumin Triglycerides Arterial Blood Glucose Arterial Blood Ionized Calcium Ur Specific [place] Urine WBC (Auto) Vancomycin Trough Coronavirus (PCR) 12/31/20 01/01/21 01/01/21 Unknown 04:50 05:10 WBC 16.2 H RBC 2.89 L Hgb 8.0 L Hct 25.9 L MCHC 31 L RDW 18.2 H Plt Count 458 H Lymph % (Auto) [place] % (Auto) Lymph # (Auto) [place] # (Auto) Baso # (Auto) Seg Neutrophils % Seg Neuts % (Manual) 96.0 H Lymphocytes % (Manual) 3.0 L Nucleated RBC % 3.0 H Seg Neutrophils # Seg Neutrophils # Man 15.6 H Lymphocytes # (Manual) 0.5 L D-Dimer ABG pH 7.268 L POC ABG pCO2 POC ABG pO2 ABG pO2 56.9 L ABG HCO3 38.8 H ABG O2 Saturation 85.5 L ABG Base Excess 10.7 H ABG Hemoglobin 6.4 L ABG Oxyhemoglobin ABG Sodium ABG Potassium ABG Chloride ABG Glucose Oxyhemoglobin 82.8 L Carboxyhemoglobin Sodium Potassium Chloride Carbon Dioxide BUN Creatinine Glucose POC Glucose 143 H Hemoglobin A1c Lactic Acid Calcium Magnesium Ferritin Total Bilirubin AST ALT Alkaline Phosphatase Lactate Dehydrogenase Total Creatine Kinase C-Reactive Protein Total Protein Albumin Triglycerides Arterial Blood Glucose Arterial Blood Ionized Calcium Ur Specific [place] Urine WBC (Auto) Vancomycin Trough Coronavirus (PCR) 01/01/21 01/01/21 01/01/21 11:29 17:00 17:33 WBC 16.1 H RBC 2.68 L Hgb 7.8 L Hct 24.5 L MCHC RDW 18.9 H Plt Count Lymph % (Auto) [place] % (Auto) Lymph # (Auto) [place] # (Auto) Baso # (Auto) Seg Neutrophils % Seg Neuts % (Manual) Lymphocytes % (Manual) 9.0 L Nucleated RBC % 2.0 H Seg Neutrophils # Seg Neutrophils # Man Lymphocytes # (Manual) D-Dimer ABG pH POC ABG pCO2 POC ABG pO2 ABG pO2 ABG HCO3 ABG O2 Saturation ABG Base Excess ABG Hemoglobin ABG Oxyhemoglobin ABG Sodium ABG Potassium ABG Chloride ABG Glucose Oxyhemoglobin Carboxyhemoglobin Sodium Potassium Chloride Carbon Dioxide BUN Creatinine Glucose POC Glucose 153 H 120 H Hemoglobin A1c Lactic Acid Calcium Magnesium Ferritin Total Bilirubin AST ALT Alkaline Phosphatase Lactate Dehydrogenase Total Creatine Kinase C-Reactive Protein Total Protein Albumin Triglycerides Arterial Blood Glucose Arterial Blood Ionized Calcium Ur Specific [place] Urine WBC (Auto) Vancomycin Trough Coronavirus (PCR) 01/01/21 01/02/21 01/02/21 23:23 04:45 05:28 WBC RBC Hgb Hct MCHC RDW Plt Count Lymph % (Auto) [place] % (Auto) Lymph # (Auto) [place] # (Auto) Baso # (Auto) Seg Neutrophils % Seg Neuts % (Manual) Lymphocytes % (Manual) Nucleated RBC % Seg Neutrophils # Seg Neutrophils # Man Lymphocytes # (Manual) D-Dimer ABG pH 7.219 L POC ABG pCO2 102.6 H POC ABG pO2 49.7 L ABG pO2 ABG HCO3 ABG O2 Saturation ABG Base Excess ABG Hemoglobin 8.4 L ABG Oxyhemoglobin 79.4 L ABG Sodium ABG Potassium ABG Chloride ABG Glucose 146 H Oxyhemoglobin Carboxyhemoglobin 2.3 H Sodium Potassium Chloride Carbon Dioxide BUN Creatinine Glucose POC Glucose 144 H 133 H Hemoglobin A1c Lactic Acid Calcium Magnesium Ferritin Total Bilirubin AST ALT Alkaline Phosphatase Lactate Dehydrogenase Total Creatine Kinase C-Reactive Protein Total Protein Albumin Triglycerides Arterial Blood Glucose 146 H Arterial Blood Ionized Calcium 4.4 L Ur Specific [place] Urine WBC (Auto) Vancomycin Trough Coronavirus (PCR) 01/02/21 01/02/21 01/02/21 11:50 17:53 23:26 WBC RBC Hgb Hct MCHC RDW Plt Count Lymph % (Auto) [place] % (Auto) Lymph # (Auto) [place] # (Auto) Baso # (Auto) Seg Neutrophils % Seg Neuts % (Manual) Lymphocytes % (Manual) Nucleated RBC % Seg Neutrophils # Seg Neutrophils # Man Lymphocytes # (Manual) D-Dimer ABG pH POC ABG pCO2 POC ABG pO2 ABG pO2 ABG HCO3 ABG O2 Saturation ABG Base Excess ABG Hemoglobin ABG Oxyhemoglobin ABG Sodium ABG Potassium ABG Chloride ABG Glucose Oxyhemoglobin Carboxyhemoglobin Sodium Potassium Chloride Carbon Dioxide BUN Creatinine Glucose POC Glucose 139 H 149 H 155 H Hemoglobin A1c Lactic Acid Calcium Magnesium Ferritin Total Bilirubin AST ALT Alkaline Phosphatase Lactate Dehydrogenase Total Creatine Kinase C-Reactive Protein Total Protein Albumin Triglycerides Arterial Blood Glucose Arterial Blood Ionized Calcium Ur Specific [place] Urine WBC (Auto) Vancomycin Trough Coronavirus (PCR) 01/02/21 01/03/21 01/03/21 Unknown 03:51 05:23 WBC RBC Hgb Hct MCHC RDW Plt Count Lymph % (Auto) [place] % (Auto) Lymph # (Auto) [place] # (Auto) Baso # (Auto) Seg Neutrophils % Seg Neuts % (Manual) Lymphocytes % (Manual) Nucleated RBC % Seg Neutrophils # Seg Neutrophils # Man Lymphocytes # (Manual) D-Dimer ABG pH POC ABG pCO2 73.4 H POC ABG pO2 44.7 L ABG pO2 ABG HCO3 ABG O2 Saturation ABG Base Excess ABG Hemoglobin 7.8 L ABG Oxyhemoglobin ABG Sodium ABG Potassium ABG Chloride ABG Glucose 177 H Oxyhemoglobin Carboxyhemoglobin Sodium Potassium Chloride Carbon Dioxide BUN Creatinine Glucose POC Glucose 156 H Hemoglobin A1c Lactic Acid Calcium Magnesium Ferritin Total Bilirubin AST ALT Alkaline Phosphatase Lactate Dehydrogenase Total Creatine Kinase C-Reactive Protein Total Protein Albumin Triglycerides 718 H Arterial Blood Glucose 177 H Arterial Blood Ionized Calcium 4.3 L Ur Specific [place] Urine WBC (Auto) Vancomycin Trough Coronavirus (PCR) 01/03/21 01/03/21 01/03/21 06:00 11:41 17:17 WBC 12.5 H RBC 2.34 L Hgb 6.9 L Hct 21.9 L MCHC RDW 19.3 H Plt Count Lymph % (Auto) [place] % (Auto) Lymph # (Auto) [place] # (Auto) Baso # (Auto) Seg Neutrophils % Seg Neuts % (Manual) 82.0 H Lymphocytes % (Manual) 6.0 L Nucleated RBC % 10.0 H Seg Neutrophils # Seg Neutrophils # Man 10.3 H Lymphocytes # (Manual) 0.8 L D-Dimer ABG pH POC ABG pCO2 POC ABG pO2 ABG pO2 ABG HCO3 ABG O2 Saturation ABG Base Excess ABG Hemoglobin ABG Oxyhemoglobin ABG Sodium ABG Potassium ABG Chloride ABG Glucose Oxyhemoglobin Carboxyhemoglobin Sodium Potassium Chloride Carbon Dioxide BUN Creatinine Glucose POC Glucose 124 H 140 H Hemoglobin A1c Lactic Acid Calcium Magnesium Ferritin Total Bilirubin AST ALT Alkaline Phosphatase Lactate Dehydrogenase Total Creatine Kinase C-Reactive Protein Total Protein Albumin Triglycerides Arterial Blood Glucose Arterial Blood Ionized Calcium Ur Specific [place] Urine WBC (Auto) Vancomycin Trough Coronavirus (PCR) 01/03/21 01/03/21 01/04/21 23:47 Unknown 04:49 WBC RBC Hgb Hct MCHC RDW Plt Count Lymph % (Auto) [place] % (Auto) Lymph # (Auto) [place] # (Auto) Baso # (Auto) Seg Neutrophils % Seg Neuts % (Manual) Lymphocytes % (Manual) Nucleated RBC % Seg Neutrophils # Seg Neutrophils # Man Lymphocytes # (Manual) D-Dimer ABG pH 7.245 L POC ABG pCO2 98.0 H POC ABG pO2 47.5 L ABG pO2 ABG HCO3 ABG O2 Saturation ABG Base Excess ABG Hemoglobin 9.9 L ABG Oxyhemoglobin ABG Sodium ABG Potassium ABG Chloride ABG Glucose 171 H Oxyhemoglobin Carboxyhemoglobin Sodium Potassium Chloride Carbon Dioxide 37 H BUN 24 H Creatinine 0.4 L Glucose 156 H POC Glucose 158 H Hemoglobin A1c Lactic Acid Calcium 6.8 L Magnesium Ferritin Total Bilirubin AST ALT Alkaline Phosphatase Lactate Dehydrogenase Total Creatine Kinase C-Reactive Protein Total Protein Albumin Triglycerides Arterial Blood Glucose 171 H Arterial Blood Ionized Calcium 4.5 L Ur Specific [place] Urine WBC (Auto) Vancomycin Trough Coronavirus (PCR) 01/04/21 01/04/21 01/04/21 05:14 06:45 06:45 WBC 13.0 H RBC 2.34 L Hgb 6.9 L Hct 21.8 L MCHC RDW 19.7 H Plt Count Lymph % (Auto) [place] % (Auto) Lymph # (Auto) [place] # (Auto) Baso # (Auto) Seg Neutrophils % Seg Neuts % (Manual) Lymphocytes % (Manual) Nucleated RBC % Seg Neutrophils # Seg Neutrophils # Man Lymphocytes # (Manual) D-Dimer ABG pH POC ABG pCO2 POC ABG pO2 ABG pO2 ABG HCO3 ABG O2 Saturation ABG Base Excess ABG Hemoglobin ABG Oxyhemoglobin ABG Sodium ABG Potassium ABG Chloride ABG Glucose Oxyhemoglobin Carboxyhemoglobin Sodium Potassium Chloride Carbon Dioxide 39 H BUN 26 H Creatinine 0.4 L Glucose 164 H POC Glucose 144 H Hemoglobin A1c Lactic Acid Calcium 7.2 L Magnesium Ferritin Total Bilirubin AST ALT Alkaline Phosphatase Lactate Dehydrogenase Total Creatine Kinase C-Reactive Protein Total Protein Albumin Triglycerides Arterial Blood Glucose Arterial Blood Ionized Calcium Ur Specific [place] Urine WBC (Auto) Vancomycin Trough Coronavirus (PCR)
[2021-01-04] MEDS: POLYETHYLENE GLYCOL 3350 17 GM POWDER PO SCH (10:45)
[2021-01-04] MEDS: FAMOTIDINE 20 MG TAB PO SCH ×2 (10:45→21:28)
[2021-01-04] MEDS: DOCUSATE SODIUM 100 MG/10 ML ORAL LIQD PO SCH ×2 (10:45→21:29)
--- NOTE | 2021-01-04 15:31 | Progress Note ---
Assessment and Plan Assessment and plan: -S/p antibiotic therapy -Remains on vasopressor support -RASS goal -4 per CCM -Chest tube management as per surgery/CCM -Maintained on mechanical ventilation, wean as tolerated -Continue to monitor glucose levels and urine output -Continue supportive care -ID and critical care following -Prognosis is very poor DVT/GI prophylaxis: SCDs to bilateral lower extremities while in bed, Lovenox subcu, PPI Disposition: ICU The high probability of a clinically significant, sudden or life threatening deterioration of the [multi] system(s) required my full and direct attention, intervention and personal management. The aggregate critical care time was [35] minutes. This time is in addition to time spent performing reported procedures but includes the following: [x] Data Review and interpretation [x] Patient assessment and monitoring of vital signs [x] Documentation [x] Medication orders and management History Interval history: 59-year-old female who is smoker who presented to [facility] with shortness of breath cough fever weakness for 1 to 2 days prior to arrival. Per EMS the patient was severely hypoxic with saturations in the low 80s. With all oxygen and nonrebreather came down to low 90s. ID, pulmonary, CCM were consulted. Septic Shock Coag Negative staph/Entrococcus bactermia MRSA/Klebsiella in sputum COVID-19 pneumonia Acute hypoxic hypercapnic respiratory failure Bilateral pneumothorax Pneumomediastinum with subcutaneous emphysema Elevated D-dimer Transaminitis secondary to Covid 19 Klebsiella pneumonia Type 2 diabetes mellitus Severe protien calorie malnutrition secondary to critical illness Metabolic alkalosis Hypercapnia 2/1: Patient continues on BiPAP throughout the night. Labs are remarkable for hypoxia with improving renal function but lactic acidosis without fever. CTA has been ordered to rule out pulmonary embolism. I agree with increasing enoxaparin to twice daily full dose for empiric treatment of pulmonary embolism. Will obtain ID consultation on further evaluation for possible underlying pneumonia versus COVID-19. We will also obtain echocardiogram for evaluation. Will discontinue fluids at t his time. 2/2; Continue supportive care, Patient remains with very guarded prognosis, remains on BiPAP, continues on Remdesivir, and steroids. Will continue anticoagulation, unable to get CTA Chest due to patients unstable clinical status. Will adjust insulin for better blood glucose 2/3: Continues on BIPAP, no clear improvement at this time. Will continue steroids therapy Remdesivir and also Full anticoagulation at this time. Will update family. Discussed with Demurrage Clerk. 11/19: Taking a break from the BiPAP on high flow and nonrebreather 100% with saturation of 90% becomes hypoxic with any movement. Demurrage Clerk input noted will get a dose of Lasix today. Will await a discussion with ID for possibly increasing steroid. I updated Patient's Cousin, Tayla Esquivel who is the emergency inside sales person. Blood sugar remains fluctuating secondary to steriods, Encouraged Prone positioning. Noted with mild hyponatremia we will continue to monitor and manage 11/20: Continue supportive care wean oxygen as tolerated prognosis remains guarded. Encouraged to progress as tolerated. Awaiting labs today. Discussed with nursing staff and patient at bedside. 11/21: Discontinued Dexamethasone as Solumedrol started secondary to increased oxygen demand. Will give additional insulin for better control. Continue oxygen support patient still on high flow. Prognosis still guarded 11/22: Patient was intubated and placed on mechanical ventilation. Continue current medication. Will check a.m. labs today. Noted still with hypotension. Doubt septic shock at this time as patient has no new fever. Will adjust insulin for better blood sugar control. 11/23: Patient admitted with COVID-19 despite all efforts patient remains severely hypoxic and now is intubated. Demurrage Clerk input noted. Blood pressure marginal at this time. Very poor prognosis. Continue Solu-Medrol. 11/24. Patient remains very hypoxic. Blood pressure borderline. Plan for initiation of paralytic agents as per search engine optimization analyst. Patient may need to be tra nsferred if no improvement. 11/26. Off paralytics. Remains intubated. On steroids. Prognosis is poor. 11/27. Chest xray shows pneumomediastinum and subcutaneous emphysema. Surgery consulted. Plan for chest tube placement. Sputum culture grew MRSA. Patient started on vancomycin per ID. 11/28. Right chest tube placed yesterday by surgery. Repeat chest x-ray showed left small pneumothorax. Plan for chest tube placement on the left today. Remains on paralytic agents. 11/29. Remains intubated on vent. Had left chest tube placed yesterday. Vitals reviewed. Critical care following 11/30/ Remains on mechanical ventilation. Worsening hypoxia. Bilateral chest tubes in place. Vitals reviewed. Labs reviewed 12/01: Chest tube and mechanical ventilation remains in place, poor prognosis, FIO2 remains at 90%, adjust insulin for better blood glucose control 12/02: Patient remains on full ventilatory support and steroids, still with worsening leukocytosis ?inflammatory or infectious vs steroids. Continue vancomycin. 12/03; slowly weaning, 12/04: Still on the vent FiO2 down to 65% PEEP remains at 18. Still with poor prognosis. 12/05: Patient continues on full ventilatory support per search engine optimization analyst PEEP remains at 18. Still with hypercapnic respiratory failure. FiO2 down to 60% this mor fabiola. Chest tube to suction still weaning off steroids in the deliberation ongoing for possible a third chest tube as last documentation by surgery shows no plan for it at this time. Continue to manage insulin for better blood sugar control. 12/06:weaned down to 60%, continue supportive care, unable to wean, 12/07; patient remains intubated on ventilatory support, chest tubes in place trach and PEG when patient's Covid test is negative,Per surgery. 12/08; Patient remains intubated remains with hypercapnia and hypoxia. Chest tube still remain in place. He is off antibiotics at this time. Continue steroids which is likely resultant to the leukocytosis. Demurrage Clerk and surgeon following ID input is noted. Prognosis remains guarded to poor 12/10; patient remains intubated on vent, unable to wean awaiting trach and PEG when Covid test is negative, Continue current management 12/11; patient awaiting trach and PEG when Covid test is negative, vent dependent, poor prognosis 12/12; clinically no change, vent dependent, Patient is critically ill with very poor prognosis, awaiting trach and PEG when COVID-19 test turns negative. Plan discussed with nursing staff. Caregivers have discussed with patient's family periodically 12/13: Patient is critically ill with very poor prognosis, awaiting trach and PEG when COVID-19 test turns negative. Plan discussed with nursing staff. C aregivers have discussed with patient's family periodically 12/14: Increase UOP which we will monitor and replete as needed. Patient remain hypoxemic on ABG despite 100 FiO2, remains on fentanyl, precedex, versed and levo gtt. 12/15: Patient remains sedated on fentanyl at 3 mcg, Versed at 30 mg, dex amethasone 0.3 and was on Levophed 6 mcg this morning. Patient's vent settings rate of 30, tidal volume 425, PEEP of 18, FiO2 of 85. RT attempted to wean as tolerated. No acute events reported overnight. Bilateral chest tubes to wall suction. 12/16: Overnight the patient was noted to be bradycardic, Precedex drip was increased to 0.6/fentanyl to 4 mcg/Versed 5 mg, bilateral chest tube to suction. Current vent settings for 425/30/18/0.75, RT to wean as tolerated 12/17: Patient's T-max overnight was 101.2, obtain CXR today, blood culture x2 per ID. Patient remains on fentanyl, Versed, Precedex and Levophed. Current vent settings AC 425/30/18/0.75, RT to wean as tolerated. Continue steroid taper. 12/18: Patient remains sedated on fentanyl, Versed, Precedex and has vasopressor support of Levophed, current vent settings 425/30/18/0.75 with bilateral chest tubes to wall suction. Patient's blood culture from 12/17 grew gram-positive cocci in pairs and chains however the patient is on vancomycin and cefepime. We will continue to follow for speciation and sensitivity. 12/19: Unfortunately remains on full ventilatory support prognosis remains very poor. No new fever however since 12/17. Continue to follow cultures not finalized yet. Antibiotics per ID critical care management input noted. Patient remains on high FiO2 and PEEP at this time. 12/20: Still with intermittent fever, likely secondary to covid 19, still with hyponatremia, continue with tube feed. cultures with coagulas negative staph, await further ID input. Continues on abx. 12/21: Patient remains on fentanyl, Precedex, Versed and Levophed and assist control for 25/30/18/.100 with bilateral chest tubes in place. Patient remains on antibiotic therapy. No acute events reported overnight. 12/22: Patient remains sedated on Precedex and fentanyl and on vasopressor support, blood cultures grew coag negative Staphylococcus and Enterococcus and antibiotic therapy was deescalated to ampicillin by infectious disease. This morning patient was on assist control for 25/30/18/0.100 and respiratory therapy to decrease FiO2 as tolerated. 12/23: Patient remains sedated on Versed, fentanyl, propofol, dexamethasone and vasopressor support with Levophed. Patient is on ampicillin with a T-max of 99 and current vent settings assist-control 425/30/18/0.90 which is being weaned as tolerated by RT. Patient bowel regimen escalated. 12/24: Patient was febrile overnight to 102, remains sedated on Versed, fentanyl, propofol and Precedex and on respiratory support with Levophed. This morning at the time my examination patient was on assist control 425/30/18/0.100. Patient's bowel regimen was escalated. This afternoon patient SPO2 dropped into the upper 60s and low 70s, patient was removed off the ventilator and bagged by RT with improvement in his SPO2 to mid 70s and his ventilator settings were adjusted with an increase in PEEP to 22 and reduction in tidal volume. Patient remained with SPO2 in the 70s to 80s then suddenly dropped his SPO2 again. A CXR was obtained and patient received 40 mg of IV Lasix. CXR showed pneumothorax and general surgery was consulted for chest tube placement. Patient's existing right chest tube was replaced after removal. During chest tube was placed on the right side and a repeat CXR is being performed. Dr. German and Dr. Henry were kept up to date throughout the process and Dr. Henry was at beside during this time. I attempted to call Kehinde but was unable to contact him but left a voicemail. Jd was called and informed of changes with translation provided by Tayla. I spoke to them on the phone for over 30 minutes and explained the situation. They did not wish to change his CODE STATUS. Per CCM the patient respikes his temperature over the next 24 hours we will reculture his urine and blood. Patient remains on antibiotic therapy for 14 days per infectious disease 01/04/2021. Repeat blood cultures are negative. 12/25: Patient developed subcu emphysema on right chest and a repeat CXR shows minimal pneumothorax on the right chest wall which has not increased in size. At the time of my examination patient was on assist control 400/30/18/0.100 and the subcutaneous emphysema was noted after the patient's PEEP was increased. Patient remains sedated on Versed, fentanyl, Precedex and propofol with vasopressor support of Levophed. Patient's family decided to make the patient an AND and his CODE STATUS was updated. We will continue supportive care. Infectious disease has escalated antibiotic therapy to Zosyn. 12/26. Remains mechanically ventilated. On AC 30/400/100% PEEP 22. Not responsive. Sedated. On pressors. Labs reviewed. On antibiotics. 12/27. No change in medical condition. Remains on AC 30/40/1 100% PEEP of 22. Sedated and on pressors. On antibiotics-Zosyn. ID and critical care on board. General surgery also following for management of chest tubes. Prognosis is very poor 12/28: Patient remains sedated on Versed, fentanyl, propofol and Precedex and has vasopressor support with Levophed quad strength at 22. Patient subcu air seems to be bilateral in his upper chest. At the time my examination patient is on 400/30/22/.95 and RT will wean his vent 0.90. Patient still has leukocytosis, metabolic alkalosis, hypokalemia. 12/29: Patient remains sedated on Versed, fentanyl, Precedex and propofol with vasopressor support with Levophed. Patient remains on assist control 400/30/22/0.90 and still [place] ptosis. Patient hypokalemia has resolved 12/30: Remains sedated on propofol, Versed, fentanyl, Precedex and on Levophed. Current vent settings assist-control 400/30/22/0.80 and improving leukocytosis and metabolic alkalosis. He will complete Zosyn today. No acute events reported overnight. Patient's urine output has decreased over the past couple days and we will continue to monitor. 12/31: Patient remains intubated on mechanical ventilation. Continue RASS goal - 4 per CCM. Continue Zosyn per ID recommendations with completion of antibiotics tomorrow. Patient with extremely poor prognosis and agree with DNR status. 01/01: Patient currently on AC/PRVC mode rate 30, tidal volume 400, FiO2 100% and PEEP of 22. Patient currently with sedation of propofol, fentanyl and Versed. Patient requiring pressors of Levophed. Currently chest tubes to suction and repeat chest x-ray on Monday. Wean FiO2 as tolerated. Guarded prognosis. 01/02: Patient currently on AC/PRVC mode rate 30, tidal volume 400, FiO2 80% and PEEP of 22. Patient currently with sedation of propofol, fentanyl and Versed. Patient requiring pressors of Levophed. Currently chest tubes to suction and repeat chest x-ray on Monday. Wean FiO2 as tolerated. Guarded prognosis. 01/03: Pulmonary reports inability to wean FiO2. Patient currently on AC/PRVC mode rate 30, tidal volume 400, FiO2 80% and PEEP of 22. Currently chest tubes to suction and repeat chest x-ray on Monday. Continue pressors to maintain MAP > 65. Poor prognosis. 01/04: Patient remains sedated on fentanyl, Versed, propofol, Precedex and with minimal support with Levophed with bilateral chest tubes in place current vent settings for /0.100. Per [facility] patient family will be approached for comfort measures if no improvement by Monday. No acute events reported overnight. Hospitalist Physical - Constitutional Vitals: Temp Pulse Resp BP Pulse Ox 98.0 F 121 H 30 H 129/72 89 01/04/21 12:00 01/04/21 15:00 01/04/21 10:00 01/04/21 15:00 01/04/21 15:00 General appearance: Present: no acute distress, other (comatose) - EENT ENT: clear oral mucosa - Neck Neck: Absent: masses or JVD, cervical LAD - Respiratory Respiratory effort: normal Respiratory: bilateral: rhonchi - Cardiovascular Rhythm: regular Heart Sounds: Present: S1 & S2. Absent: systolic murmur, diastolic murmur - Extremities Extremities: no ischemia, pulses intact, pulses symmetrical, normal temperature, normal color Peripheral Pulses: within normal limits - Abdominal General gastrointestinal: soft, non-tender, non-distended, normal bowel sounds - Integumentary Integumentary: Present: warm, dry - Psychiatric Psychiatric: other (Sedated) - Neurologic Neurologic: other (Sedated) - Allied Health Allied health notes reviewed: nursing, RT, social work, case management HEART Score - HEART Score Troponin: Troponin T < 0.010 ng/mL (0.00-0.029) 12/11/20 06:30 Results - Labs CBC & Chem 7: 01/04/21 06:45 01/04/21 06:45 Labs: Laboratory Last Values WBC 13.0 K/mm3 (4.5-11.0) H 01/04/21 06:45 RBC 2.34 M/mm3 (3.65-5.03) L 01/04/21 06:45 Hgb 6.9 gm/dl (11.8-15.2) L 01/04/21 06:45 Hct 21.8 % (35.5-45.6) L 01/04/21 06:45 MCV 93 fl (84-94) 01/04/21 06:45 MCH 30 pg (28-32) 01/04/21 06:45 MCHC 32 % (32-34) 01/04/21 06:45 RDW 19.7 % (13.2-15.2) H 01/04/21 06:45 Plt Count 343 K/mm3 (140-440) 01/04/21 06:45 Lymph % (Auto) 9.2 % (13.4-35.0) L 12/30/20 04:00 [place] % (Auto) 2.9 % (0.0-7.3) 12/30/20 04:00 Eos % (Auto) 0.6 % (0.0-4.3) 12/30/20 04:00 Baso % (Auto) 0.3 % (0.0-1.8) 12/30/20 04:00 Lymph # (Auto) 1.4 K/mm3 (1.2-5.4) 12/30/20 04:00 [place] # (Auto) 0.4 K/mm3 (0.0-0.8) 12/30/20 04:00 Eos # (Auto) 0.1 K/mm3 (0.0-0.4) 12/30/20 04:00 Baso # (Auto) 0.0 K/mm3 (0.0-0.1) 12/30/20 04:00 Add Manual Diff Complete 01/03/21 06:00 Total Counted 100 01/03/21 06:00 Seg Neutrophils % 87.0 % (40.0-70.0) H 12/30/20 04:00 Seg Neuts % (Manual) 82.0 % (40.0-70.0) H 01/03/21 06:00 Band Neutrophils % 5.0 % 01/03/21 06:00 Lymphocytes % (Manual) 6.0 % (13.4-35.0) L 01/03/21 06:00 Monocytes % (Manual) 5.0 % (0.0-7.3) 01/03/21 06:00 Eosinophils % (Manual) 1.0 % (0.0-4.3) 01/03/21 06:00 Metamyelocytes % 1.0 % 01/03/21 06:00 Myelocytes % 1.0 % 12/31/20 Unknown Nucleated RBC % 10.0 % (0.0-0.9) H 01/03/21 06:00 Seg Neutrophils # 13.1 K/mm3 (1.8-7.7) H 12/30/20 04:00 Seg Neutrophils # Man 10.3 K/mm3 (1.8-7.7) H 01/03/21 06:00 Band Neutrophils # 0.6 K/mm3 01/03/21 06:00 Lymphocytes # (Manual) 0.8 K/mm3 (1.2-5.4) L 01/03/21 06:00 Abs React Lymphs (Man) 0.0 K/mm3 01/03/21 06:00 Monocytes # (Manual) 0.6 K/mm3 (0.0-0.8) 01/03/21 06:00 Eosinophils # (Manual) 0.1 K/mm3 (0.0-0.4) 01/03/21 06:00 Basophils # (Manual) 0.0 K/mm3 (0.0-0.1) 01/03/21 06:00 Metamyelocytes # 0.1 K/mm3 01/03/21 06:00 Myelocytes # 0.0 K/mm3 01/03/21 06:00 Promyelocytes # 0.0 K/mm3 01/03/21 06:00 Blast Cells # 0.0 K/mm3 01/03/21 06:00 WBC Morphology Not Reportable 01/03/21 06:00 Hypersegmented Neuts Not Reportable 01/03/21 06:00 Hyposegmented Neuts Not Reportable 01/03/21 06:00 Hypogranular Neuts Not Reportable 01/03/21 06:00 Smudge Cells Not Reportable 01/03/21 06:00 Toxic Granulation Not Reportable 01/03/21 06:00 Toxic Vacuolation Not Reportable 01/03/21 06:00 Dohle Bodies Not Reportable 01/03/21 06:00 Pelger-Huet Anomaly Not Reportable 01/03/21 06:00 Tony Rods Not Reportable 01/03/21 06:00 Platelet Estimate Consistent w auto 01/03/21 06:00 Clumped Platelets Not Reportable 01/03/21 06:00 Plt Clumps, EDTA Not Reportable 01/03/21 06:00 Large Platelets Few 01/03/21 06:00 Giant Platelets Not Reportable 01/03/21 06:00 Platelet Satelliting Not Reportable 01/03/21 06:00 Plt Morphology Comment Not Reportable 01/03/21 06:00 RBC Morphology Not Reportable 01/03/21 06:00 Dimorphic RBCs Not Reportable 01/03/21 06:00 Polychromasia Few 01/03/21 06:00 Hypochromasia Not Reportable 01/03/21 06:00 Poikilocytosis Not Reportable 01/03/21 06:00 Anisocytosis 1+ 01/03/21 06:00 Microcytosis Not Reportable 01/03/21 06:00 Macrocytosis Not Reportable 01/03/21 06:00 Spherocytes Not Reportable 01/03/21 06:00 Pappenheimer Bodies Not Reportable 01/03/21 06:00 Sickle Cells Not Reportable 01/03/21 06:00 Target Cells Not Reportable 01/03/21 06:00 Tear Drop Cells Not Reportable 01/03/21 06:00 Ovalocytes Not Reportable 01/03/21 06:00 Stomatocytes Rare 12/27/20 14:09 Helmet Cells Not Reportable 01/03/21 06:00 [employer] Bodies Not Reportable 01/03/21 06:00 [place] Rings Not Reportable 01/03/21 06:00 [place] Cells Not Reportable 01/03/21 06:00 Bite Cells Not Reportable 01/03/21 06:00 Crenated Cell Not Reportable 01/03/21 06:00 Elliptocytes Not Reportable 01/03/21 06:00 Acanthocytes (Spur) Not Reportable 01/03/21 06:00 Rouleaux Not Reportable 01/03/21 06:00 Hemoglobin C Crystals Not Reportable 01/03/21 06:00 Schistocytes Not Reportable 01/03/21 06:00 Malaria parasites Not Reportable 01/03/21 06:00 Yovani Bodies Not Reportable 01/03/21 06:00 Hem Pathologist Commnt No 01/03/21 06:00 D-Dimer 926.11 ng/mlDDU (0-234) H 11/26/20 06:04 ABG pH 7.245 (7.320-7.450) L 01/04/21 04:49 POC ABG pCO2 98.0 mmHg (32.0-48.0) H 01/04/21 04:49 ABG pCO2 86.9 mm Hg 01/01/21 04:50 POC ABG pO2 47.5 mmHg (83-108) L 01/04/21 04:49 ABG pO2 56.9 mm Hg (80.0-90.0) L 01/01/21 04:50 POC ABG HCO3 41.5 01/04/21 04:49 ABG HCO3 38.8 mmol/L (20.0-26.0) H 01/01/21 04:50 ABG O2 Saturation 81.1 (0-100) 01/04/21 04:49 ABG O2 Content 7.5 (0.0-44) 01/01/21 04:50 POC ABG Base Excess 11.5 01/04/21 04:49 ABG Base Excess 10.7 mmol/L (-2.0-3.0) H 01/01/21 04:50 ABG Hemoglobin 9.9 (12.0-17.5) L 01/04/21 04:49 ABG Oxyhemoglobin 79.4 (94-98) L 01/02/21 04:45 ABG Carboxyhemoglobin 2.8 % (0.0-5.0) 01/01/21 04:50 ABG Methemoglobin 0.3 (0.0-1.5) 01/02/21 04:45 ABG Sodium 143.4 mmol/L (136.0-145.0) 01/04/21 04:49 ABG Potassium 4.4 mmol/L (3.40-4.50) 01/04/21 04:49 ABG Chloride 103.0 mmol/L (98-107) 01/04/21 04:49 ABG Glucose 171 mg/dL (65-95) H 01/04/21 04:49 Oxyhemoglobin 82.8 % (95.0-99.0) L 01/01/21 04:50 Carboxyhemoglobin 2.3 (0.5-1.5) H 01/02/21 04:45 FiO2 80 % 01/01/21 04:50 FiO2 % 100 01/04/21 04:49 Sodium 144 mmol/L (137-145) 01/04/21 06:45 Potassium 4.3 mmol/L (3.6-5.0) 01/04/21 06:45 Chloride 104.2 mmol/L (98-107) 01/04/21 06:45 Carbon Dioxide 39 mmol/L (22-30) H 01/04/21 06:45 Anion Gap 5 mmol/L 01/04/21 06:45 BUN 26 mg/dL (9-20) H 01/04/21 06:45 Creatinine 0.4 mg/dL (0.8-1.3) L 01/04/21 06:45 Estimated GFR > 60 ml/min 01/04/21 06:45 BUN/Creatinine Ratio 65 % 01/04/21 06:45 Glucose 164 mg/dL (75-100) H 01/04/21 06:45 POC Glucose 141 mg/dL (70-105) H 01/04/21 11:58 Hemoglobin A1c 11.7 % (4-6) H 11/16/20 05:29 Lactic Acid 2.60 mmol/L (0.7-2.0) H* 11/16/20 05:29 Calcium 7.2 mg/dL (8.4-10.2) L 01/04/21 06:45 Phosphorus 2.60 mg/dL (2.5-4.5) 12/17/20 17:25 Magnesium 1.60 mg/dL (1.7-2.3) L 12/17/20 17:25 Ferritin 778.8 ng/mL (30.0-300.0) H 11/26/20 04:00 Total Bilirubin 0.30 mg/dL (0.1-1.2) 12/31/20 04:00 AST 23 units/L (5-40) 12/31/20 04:00 ALT 23 units/L (7-56) 12/31/20 04:00 Alkaline Phosphatase 107 units/L (35-129) 12/31/20 04:00 Lactate Dehydrogenase 288 units/L (91-180) H 11/26/20 04:00 Total Creatine Kinase 47 units/L (55-170) L 12/17/20 17:25 CK-MB (CK-2) 1.8 ng/mL (0.0-4.0) 12/17/20 17:25 CK-MB (CK-2) Rel Index 3.8 (0-4) 12/17/20 17:25 Troponin T < 0.010 ng/mL (0.00-0.029) 12/11/20 06:30 C-Reactive Protein 1.40 mg/dL (0.00-1.30) H 11/26/20 04:00 NT-Pro-B Natriuret Pep 107.2 pg/mL (0-900) 11/17/20 10:21 Total Protein 6.1 g/dL (6.3-8.2) L 12/31/20 04:00 Albumin 1.4 g/dL (3.9-5) L 12/31/20 04:00 Albumin/Globulin Ratio 0.3 % 12/31/20 04:00 Triglycerides 718 mg/dL (2-149) H 01/02/21 Unknown Procalcitonin 0.16 ng/mL (<0.15) 12/12/20 05:16 Arterial Blood Glucose 171 mg/dL (65-95) H 01/04/21 04:49 Arterial Blood Ionized Calcium 4.5 mg/dL (4.6-5.3) L 01/04/21 04:49 Urine Color Yellow (Yellow) 12/21/20 Unknown Urine Turbidity Cloudy (Clear) 12/21/20 Unknown Urine pH 6.0 (5.0-7.0) 12/21/20 Unknown Ur Specific [place] 1.013 (1.003-1.030) 12/21/20 Unknown Urine Protein <15 mg/dl mg/dL (Negative) 12/21/20 Unknown Urine Glucose (UA) Neg mg/dL (Negative) 12/21/20 Unknown Urine Ketones Neg mg/dL (Negative) 12/21/20 Unknown Urine Blood Neg (Negative) 12/21/20 Unknown Urine Nitrite Neg (Negative) 12/21/20 Unknown Urine Bilirubin Neg (Negative) 12/21/20 Unknown Urine Urobilinogen < 2.0 mg/dL (<2.0) 12/21/20 Unknown Ur Leukocyte Esterase Mod (Negative) 12/21/20 Unknown Urine WBC (Auto) 172.0 /HPF (0.0-6.0) H 12/21/20 Unknown Urine RBC (Auto) > 182.0 /HPF (0.0-6.0) 12/21/20 Unknown U Epithel Cells (Auto) 3.0 /HPF (0-13.0) 12/21/20 Unknown Urine Bacteria (Auto) 2+ /HPF (Negative) 12/21/20 Unknown Ur Renal Epithelial Cell <1 /LPF 12/21/20 Unknown Urine Mucus 2+ /HPF 12/21/20 Unknown Urine Yeast (Budding) 3+ /HPF 12/21/20 Unknown Vancomycin Trough 16.9 ug/mL (5.0-20.0) 12/19/20 15:46 Coronavirus (PCR) Positive (Negative) A 12/13/20 10:00 Hepatitis A IgM Ab Non-reactive (NonReactive) 12/17/20 21:40 Hep Bs Antigen Non-reactive (Negative) 12/17/20 21:40 Hep B Core IgM Ab Non-reactive (NonReactive) 12/17/20 21:40 Hepatitis C Antibody Non-reactive (NonReactive) 12/17/20 21:40 HIV 1&2 Antibody Rapid Non react (Non React) 12/17/20 21:40 HIV P24 Antigen Non react (Non React) 12/17/20 21:40 - Diagnostic Impressions Diagnostic Impressions: Echocardiogram 11/16/20 10:34 Transthoracic Echocardiogram Indication: Shortness of breath-COVID BP: 108/77 HR: 92 Conclusions *Global left ventricular systolic function is normal. *The estimated ejection fraction is 60-65%. *Mild to moderate concentric left ventricular hypertrophy is observed. *There is trace of mitral regurgitation. *There is mild to moderate tricuspid regurgitation. *There is evidence of mild pulmonary hypertension. *The right ventricular systolic pressure is calculated at 31 mmHg. Findings Left Ventricle: The left ventricular chamber size is normal. Mild to moderate concentric left ventricular hypertrophy is observed. Global left ventricular systolic function is normal. The estimated ejection fraction is 60-65%. Left Atrium: The left atrial chamber size is normal. Right Ventricle: The right ventricular cavity size is normal. The right ventricular global systolic function is normal. Right Atrium: The right atrial cavity size is normal. Aortic Valve: The aortic valve is trileaflet. There is no evidence of aortic regurgitation. There is no evidence of aortic stenosis. Mitral Valve: The mitral valve leaflets appear normal. There is trace of mitral regurgitation. There is no evidence of mitral stenosis. Tricuspid Valve: The tricuspid valve leaflets are normal. There is mild to moderate tricuspid regurgitation. The right ventricular systolic pressure is calculated at 31 mmHg. There is evidence of mild pulmonary hypertension. Pulmonic Valve: There is trace pulmonic regurgitation. Pericardium: There is no pericardial effusion. Aorta: There is no dilatation of the ascending aorta. There is no dilatation of the aortic root. Venous: The inferior vena cava appears normal in size. Measurements Chambers 2D Name Value Normal Range IVSd (2D) 0.81 cm (0.6 - 1.1) LVPWd (2D) 0.79 cm (0.6 - 1.1) LVIDd (2D) 4.22 cm (3.7 - 5.6) LVIDs (2D) 3.1 cm (2 - 3.8) LV FS (2D) 26.71 % - EF Teichholz (2D) 52.55 % - Ao root diameter (2D) 3.34 cm (2 - 3.7) Volumes/Mass Name Value Normal Range LA ESV SP 4CH (A/L) 10.87 ml - LA ESV SP 2CH (A/L) 18.74 ml - LA ESV BP (A/L) 16.38 ml - LA ESV BP (A/L) index 8.62 ml/m2 - LA ESV SP 4CH (MOD) 10.32 ml - LA ESV SP 2CH (MOD) 17.66 ml - LA ESV BP (MOD) 15.12 ml - LA ESV BP (MOD) index 7.96 ml/m2 - Diastolic/Systolic Function Name Value Normal Range MV E-wave Vmax 0.76 m/sec - MV deceleration time 133.63 msec - MV A-wave Vmax 1.1 m/sec - MV E:A ratio 0.69 ratio - Aortic Valve Name Value Normal Range AV Vmax 1.44 m/sec - AV VTI 22.94 cm - AV peak gradient 8.33 mmHg - AV mean gradient 4.73 mmHg - LVOT diameter 2.2 cm - LVOT Vmax 1.04 m/sec - LVOT VTI 18.88 cm - LVOT peak gradient 4.34 mmHg - LVOT mean gradient 2.31 mmHg - SV LVOT 72.05 ml - EVANGELISTA (continuity Vmax) 2.75 cm2 - EVANGELISTA (continuity VTI) 3.14 cm2 - Tricuspid Valve Name Value Normal Range TR Vmax 2.64 m/sec - TR peak gradient 28 mmHg - RAP 3 mmHg - RVSP 31 mmHg - Gupta/IV: Voiding Method Indwelling Catheter IV Catheter Type [Left Peripheral IV Antecubital] Active Medications - Current Medications Current Medications: Generic Name Dose Route Start Last Admin Trade Name Freq PRN Reason Stop Dose Admin Acetaminophen 650 mg 11/15/20 23:55 01/02/21 01:22 Acetaminophen 325 Mg Tab PO 650 mg Q4H PRN Administration Pain MILD(1-3)/Fever >100.5/UBTTS Lipase/Protease/Amylase 1 each 11/23/20 11:53 01/03/21 09:18 Lipase 10,500/Protease 25,000/Amylase 43,750 (Units) Dr Slater FEEDTUBE 1 each PRN PRN Administration For Clogged Feeding Tube Dextrose 25 ml 12/10/20 05:21 12/28/20 12:18 Dextrose 50% In Water (25gm) 50 Ml Syringe IV 10 ml Q30MIN PRN Administration Hypoglycemia Protocol Docusate Sodium 100 mg 12/23/20 10:00 01/04/21 10:45 Docusate Sodium 100 Mg/10 Ml Oral Liqd PO 100 mg BID RAEANN Administration Enoxaparin Sodium 40 mg 12/03/20 22:00 01/03/21 21:16 Enoxaparin 40 Mg/0.4 Ml Inj SUB-Q 40 mg QDAY@2200 RAEANN Administration Famotidine 20 mg 12/16/20 10:00 01/04/21 10:45 Famotidine 20 Mg Tab PO 20 mg BID RAEANN Administration Hydrophilic Ointment 1 applic 11/21/20 21:53 11/30/20 21:33 Lip Therapy Vaseline TP 1 applic Q2HR PRN Administration Dry Lips Midazolam HCl 100 mg/ Sodium 100 mls @ 2 mls/hr 11/21/20 22:00 01/03/21 20:00 Chloride IV 5 mg/hr TITR RAEANN 5 mls/hr Titration Protocol 2 MG/HR Propofol 1,000 mg in 100 mls @ 2.175 mls/hr 11/27/20 12:00 01/04/21 08:16 Diprivan 10 Mg/Ml IV 20 mcg/kg/min TITR RAEANN 8.7 mls/hr Administration Protocol 5 MCG/KG/MIN Dexmedetomidine HCl 400 mcg/ 104 mls @ 4.441 mls/hr 12/10/20 13:00 01/04/21 08:15 Sodium Chloride IV 0.7 mcg/kg/hr TITRATE RAEANN 15.543 mls/hr Administration Protocol 0.2 MCG/KG/HR Fentanyl Citrate 2,000 mcg in 100 mls @ 3.9 mls/hr 12/18/20 19:00 01/04/21 13:13 Fentanyl Drip Premix IV 4 mcg/kg/hr TITR RAEANN 15.6 mls/hr Administration Protocol 1 MCG/KG/HR Vasopressin 20 unit/ Sodium 101 mls @ 9.09 mls/hr 12/24/20 18:30 Chloride IV TITR RAEANN Protocol 0.03 UNITS/MIN Norepinephrine 8 mg/ Sodium 250 mls @ 3.75 mls/hr 12/25/20 22:00 01/04/21 08:14 Chloride IV 8 mcg/min TITR RAEANN 15 mls/hr Administration Protocol 2 MCG/MIN Insulin Glargine 8 units 12/17/20 13:52 01/03/21 21:56 Insulin Glargine 100 Units/Ml SUB-Q 8 units QHS [facility] Administration Insulin Human Lispro 0 unit 11/22/20 06:00 01/04/21 13:13 Insulin Lispro 100 Unit/Ml SUB-Q Not Given Q6HR [facility] Protocol Lorazepam 1 mg 01/02/21 01:05 Lorazepam 2 Mg/Ml Vial IV Q4H PRN Agitation Metoclopramide HCl 10 mg 11/15/20 23:55 Metoclopramide 10 Mg/2 Ml Inj IV Q6H PRN Nausea And Vomiting Multi-Ingred Cream/Lotion/Oil/Oint 1 applic 11/21/20 21:53 Mineral Oil/Petrolatum, White Ophth Oint 3.5 Gm OU Q4HR PRN Dry Eye(s) Ondansetron HCl 4 mg 11/15/20 23:55 Ondansetron 4 Mg/2 Ml Inj IV Q8H PRN Nausea And Vomiting Polyethylene Glycol 17 gm 12/23/20 10:00 01/04/21 10:45 Polyethylene Glycol 3350 17 Gm Powder PO 17 gm QDAY RAEANN Administration Senna/Docusate Sodium 2 tab 12/21/20 14:00 01/04/21 13:12 Sennosides/Docusate Sodium 8.6/50 Mg Tab PO 2 tab Q8HR RAEANN Administration Simple Syrup 15 ml 11/23/20 11:53 Simple Syrup 15 Ml FEEDTUBE PRN PRN Hypoglycemia Simple Syrup 30 ml 11/23/20 11:53 Simple Syrup 15 Ml FEEDTUBE PRN PRN Hypoglycemia Sodium Bicarbonate 325 mg 11/23/20 11:53 01/03/21 09:18 Sodium Bicarbonate 325 Mg Tab FEEDTUBE 325 mg PRN PRN Administration For Clogged Feeding Tube Sodium Chloride 10 ml 11/16/20 10:00 01/04/21 13:13 Sodium Chloride 0.9% 10 Ml Flush Syringe IV 10 ml BID RAEANN Administration Sodium Chloride 10 ml 11/15/20 23:55 12/03/20 00:21 Sodium Chloride 0.9% 10 Ml Flush Syringe IV 10 ml PRN PRN Administration LINE FLUSH Nutrition/Malnutrition Assess - Dietary Evaluation Nutrition/Malnutrition Findings: Nutrition Notes Start: 11/20/20 12:03 Freq: Status: Active Protocol: Document 01/01/21 12:52 AL (Rec: 01/01/21 12:59 AL [id number]) Co-Sign 01/01/21 12:52 LP Nutrition Notes Initial or Follow up Reassessment Current Diagnosis Diabetes,Sepsis,Respiratory Failure Other Pertinent Diagnosis Bilat pneu, COVID-19 (+) Current Diet Glucerna 1.2 at 65 ml/hr Labs/Tests Reviewed Pertinent Medications Propofol at 6.525 ml/hr (172 kcal) Lantus Colace Miralax Height 5 ft 6 in Weight 91.1 kg Usual Body Weight 80.5 kg [place] Body Weight (kg) 64.54 BMI 32.4 Weight change and time frame 3% wt gain (2.7 kig) noted. Pt has 3+ pitting edema Weight Status Obese Subjective/Other Information F/U for TF tolerance. Pt is tolerating TF at 65 ml/hr ( goal rate). Percent of energy/protein needs met: 100%/100% Burn Absent Trauma Absent GI Symptoms None Difficulty In Swallowing,Chewing Current % PO Negligible Minimum of two criteria Yes Interpretation of Weight Loss (severe) >2% in 1 week Fluid Accumulation Moderate to Severe (severe) #3 Nutrition Diagnosis Inadequate oral intake Diagnosis Progress(for reassessment Continues documentation) #2 Nutrition Diagnosis Malnutrition As Evidenced by Signs and Symptoms Pt meeting 100%/100% of estimated energy/protein needs via TF for >7 days Diagnosis Progress(for reassessment Improved documentation) #1 Nutrition Diagnosis Unintended weight loss Diagnosis Progress(for reassessment Continues documentation) Is patient on ventilator? Yes Is Patient Ambulatory and/or Out of Bed No REE-([facility]-confined to bed) 2006.072 Kcal/Kg value to use for calculation 22 Approximate Energy Requirements Using 2004 kcal/Kg Calculation Used for Recommendations [facility] Additional Notes Protein: 87-145 g/day (1.2-2g/ kg) Fluid: 1ml/kcal or per MD Nutrition Intervention Change Diet Order: Continue TF Nutrition Support: Glucerna 1.2 at 65 ml/hr. Flush 125 ml q4h Kcal 1,872 Protein (gm) 93 Fluid (mL) 1,255 Goal #1 Meet at least 75% of energy and protein needs via TF Goal #2 TF tolerance Anticipated Discharge Needs: Unable to determine at this time Follow-Up By: 01/08/21 Additional Comments F/U for TF tolerance.
[2021-01-04 17:11] LABS: Anisocytosis 1+; Total Cells Counted 100
[2021-01-04] MEDS: INSULIN GLARGINE 100 UNITS/ML SUB-Q SCH (21:28)
[2021-01-04] MEDS: ENOXAPARIN 40 MG/0.4 ML INJ SUB-Q SCH (21:29)
[2021-01-04] MEDS: MIDAZOLAM 100 MG in SODIUM CHLORIDE 0.9% 80 ML IV SCH (21:43)
[2021-01-04] MEDS: ACETAMINOPHEN 325 MG TAB PO PRN (23:22)
[2021-01-05] MEDS: INSULIN LISPRO 100 UNIT/ML SUB-Q SCH ×4 (00:08→18:00)
[2021-01-05] MEDS: fentaNYL DRIP Premix 2,000 MCG/100 ML BAG IV SCH ×4 (01:23→22:22)
[2021-01-05] MEDS: ACETAMINOPHEN 325 MG TAB PO PRN ×2 (04:22→09:53)
[2021-01-05] MEDS: SENNOSIDES/DOCUSATE SODIUM 8.6/50 MG TAB PO SCH ×3 (05:22→21:17)
[2021-01-05 05:37] LABS: ABG Base Excess 11.8 mmol/L (-2.0-3.0); ABG Methemoglobin 0.6 % (0.0-1.5); ABG Oxygen Saturation 73.2 % (95.0-99.0); ABG PCO2 93.9 mm Hg; ABG PH 7.258 pH Units (7.350-7.450); ABG PO2 43.9 mm Hg (80.0-90.0)
--- NOTE | 2021-01-05 08:52 | Progress Note ---
Assessment and Plan 59 y/o male with acute respiratory failure, abnormal CXR and abnormal lab studies. 01/05/21: Febrile now. Will discuss on rounds next appropriate steps (change out/remove garcia, DVT studies, CXR, cultures, etc vs discussion with family a bout overall clinical state). Not sure if aggressive measures would improve outcome in this particular situation. Given the amount of time (51 days) and the level of hypoxemia, brain function is likely very limited, however not able to truly tell given the amount of sedation required to maintain oxygenation. Plan is to discuss with family this week overall prognosis, and goals of care. At this point, most likely the best thing is comfort measures. 01/04/21: Prognosis remains very very poor. Inspite of all of our efforts, no real improvement has been seen. Will give the family a little more time but will need to have talks this week about comfort measures given lack of improvement. Patient is an AND, but right now quality of life should be considered more than quantity. Continue supportive care. 01/01/21: Continue chest tubes to Suction, all of them. Continue increased suction on the tubes on the right at least through the weekend. Consider repeat CXR on Monday but no need to order over the weekend, will assess when I get back. Continue sedation at current level. Ok with trying to inch down FiO2 as tolerated but keep PaO2 55 and greater and sats 92% and greater. Guarded to poor prognosis. 12/31/20: Examined chest tubes and increased suction in pleurovac to 30 cmH2O. Only serosanguinous fluid, no blood. Explained to nursing re-inforcing mechanisms with vaseline gauze and slitted 4x4's. 12/30/20: Continue supportive measures. Continue to wean FiO2 for sats >88%, but will go slowly given his tenuous course. Chest tubes to suction. Explained to nursing, that sub q air will be present but for now, nothing to do unless oxygen saturation drops rapidly, then would need stat CXR to evaluate for worsening PTX or tension. 12/29/20: Continue supporitve measures. Continue sedation and vasopressor support. Chest tubes will remain until patient is extubated if able to do so. Prognosis is very very guarded. 12/27/20: Continue supportive measures. Continue sedation and vasopressor support. Chest tubes remain until extubated if able to do so. Very very guarded prognosis. 12/26/20: Very very poor prognosis given prolong time of hypoxemia during the events from and continued hypoxemia despite 100%. PTX's and recurrent PTX's have been very common with this current wave of COVID 19 so not entirely unexpected. Appreciate surgery help with second chest tube. Will Strip tubes again tomorrow morning. COntinue sedation and vasopressor support. Very very poor prognosis. Please do not give any further lasix, as the changes seen are not edema related. 12/24/20: If patient spikes again in the next 24 hours, please reculture urine and blood. In regards to cuff, as long as patient is not losing volumes, no indication to change tube out as of yet. Will continue to monitor. Continue abx as ID recs. Attempt to wean back down again but unfortunately this has been an ongoing issue for this patient. Continue pressors to help achieve adequate sedation for vent management. Prognosis remains guarded. 12/23/20: Continue current level of sedation. Wean parameters as listed below. appreciate ID recs and help. 12/22/20: Continue current level of sedation. Ok to wean FiO2 for sats >88% and PaO2>55mmHg. Follow up ID recs in regards to abx therapy. Prognosis unfortunately still remains guarded. 12/21/20: Back up to 100%. Peep is the same chest tubes intact. Long discussion on rounds, will restart Diprovan to obtain adequate sedation (RASS of -4). Ok to titrate pressors to achieve adequate sedation if blood pressure is compromised by sedatives. Prognosis remains guarded. Awaiting speciation of other cultures. 12/18/20: Still on 75% and 18 of PEEP. Follow up cultures, Blood pending, urine has not resulted yet. Had another temp at 20:00 last night. CXR looks more like pulmonary edema but not in a position to diurese at this time as he occasionally requires vasopressor support given the amount of sedation needed to achieve a RASS of 4. If he continues to spike, would consider hospital acquired coverage of abx therapy. Prognosis remains guarded. 12/17/20: Back down to 75%. Febrile last night, if and when spikes again today, please obtain blood cultures times 2 and urine. Will go ahead and order repeat CXR now. Prognosis still remains guarded. 12/16/20: Back up to 100%. Once stabilized will attempt to wean back down. ABG in the am and may need to consider repeat ABG later this afternoon pending clinical state. Unable to prone given bilateral chest tubes. Prognosis remains guarded to poor. 12/15/20: Tolerating weaning from yesterday. RT to attempt to wean some more today. Kidney function remains unchanged. Guarded prognosis. 12/14/20: Unable to wean FiO2 today. Continue supportive measures. Great that his kidney function has maintained but given the amount of oxygen he continues to require, his chances of recovery continue to decrease. Family aware and will up date them as needed. Very very guarded prognosis. 12/13/20: WIll start Weaning FiO2 again tomorrow morning of PaO2 remains this good. Continue all other supportive measures. Guarded prognosis. Monitor renal function closely. 12/12/20: Long discussion with brother at door. Patient remains full code which is not unreasonable but family is realistic about outcome being poor. Will c ontinue all supportive measures. IF clinical state worsens, will ask family to come back to see patient. Guarded Prognosis. 12/11/20: Will attempt to wean Diprovan off and increase precedex. Trigl ycerides were ok. IF we have to support with pressors we will but I have asked nursing to please be detailed in their checkouts as to why they did certain things with the continuous drips. Continue supportive measures. Brother is going to try to come and see him from [place] 12/10/20: No acute events overnight. Patient has had waxing and waning of the amount of oxygen he has required over the last 24-72 hours. I have a bad feeling that he is on the brink of cardiac arrest and this could happen at any moment. I am going to reach out to the brother today to explain to him my concerns. Patient is a full code. Very very guarded prognosis. 12/09/20: Repeat ABG later today. Wean FiO2 for sats >88%. Repeat CXR as well. With BP dropping could be relative adrenal insufficiency, will watch for now, however if pressor requirement increases would consider stress dose steroids and maybe volume replacement. Follow up cultures. Guarded prognosis. 12/08/20: Increase TV to 425. Drop FiO2 to 65% and wean for sats >88%. COntinue chest tubes. Change steroids to 20q12. 12/07/20: CXR is stable, no indication for another chest tube at this time. Will repeat ABG in 1 hour post change to 70% and wean accordingly. Dropping steroids to 20q8. Guarded prognosis. Same weaning parameters apply today as of 12/04/20 12/04/20: Continue to wean steroids to off. Continue to wean FiO2 for sats >88%. Keep PEEP at current level, would not feel comfortable weaning PEEP until FiO2 at 35-40%. Continue chest tubes to suction. PaO2 of >55, pH of >7.2 and sats >88% are acceptable. : Dropped steroids down to 40q8 and will start to wean from there. Continue to slowly wean FiO2 first, keep PEEP at current level. Spoke with Kehinde, please see my event note, who is the biological brother. He had no questions but thanked us for our care. Prognosis remains very very guarded. PaO2 of 55 and pH of >7.2 and sats of >88% are all acceptable. 12/02/20: Wean FiO2 for sats >88% and PaO2 >55. Unable to prone currently secondary to bilateral chest tubes. COntinue high dose steroids. CM To figure out who is the immediate next of kin that can make decisions and then we will discuss the current clinical situation with them. 12/01/20: Continue PEEP and FiO2 elevated to keep sats >88% and PaO2 >55. Small lung volumes and high PEEP. very very guarded prognosis. 11/30/20: Worsening hypoxemia. Chest tubes stable. Likely just worsening disease. Unable to prone now. Increase PEEP to 18 and FiO2 back up to 100. Continue 3 sedatives for RASS of -2. Obtain 12 lead to look at T waves as K was only 4.6 on yesterday. Guarded, guarded prognosis 11/29/20: Second chest tube in on yesterday. CXR is stable. ABG unchanged. Will likely increase PEEP now that chest tubes are in. No further paralytics. Still making good urine. Prognosis remains guarded. Will check chemistry to assess Potassium levels given peaked t's seen on monitor. 11/28/20: Second chest tube today. Once chest tube in, will likely increase PEEP to 18 and repeat gas about 2 hours after this. Continue paralytic today. No proning now that patient will have bilateral chest tubes. VEry guarded prognosis. 11/27/20: Spoke with surgery who have agreed to evaluate and placed chest tube on either right or left side pending CXR reading. Will monitor for 36-48 hours and if no resolution, will need chest tube placed on opposite side as well. Once placed, will likely paralyze again but hold on proning for now. Guarded prognosis. 11/26/20: Paralytics are off. Continue current level of sedation. Will prone for 12 hours today and repeat ABG in the am. Continue lung protective strategy. Guarded prognosis. 11/25/20: Prone again to 16 hours, will prone at 12-12:30. Continue paralytics for 24 more hours. Discussed the idea of permissive hypercapnea again today and as long as pH is above 7.2 no changes should be made to TV and or RR without discussing with physician. Continue to monitor urine output, guarded prognosis. Hold on lasix therapy today. 11/24/20: Prone again today. Will try 48 hours of paralyzing the patient to see if this will help with oxygenation. Will speak with RT's about permissive hypercapnea and that pH's of 7.2 and greater are ok. Continue high doses steroids. Prognosis is still very very guarded. If not improvement with par alytics, will attempt transfer. 11/23/20: Prone again today for 12 hours. Continue High Dose steroids. Hold on lasix given marginal BP's. Prognosis is very very guarded to poor. Will continue all supportive measures. If not able to wean from 100%, will attempt transfer for ECMO. 1. Pulm- Agree with concern for covid. Agree with empiric abx but procal is only mildly elevated. Await cultures. Continue bipap therapy for now but will need to monitor closely. [facility] has ordered CTA, but I spoke with pharmacy and we will empirically treat with BID lovenox therapy. COntinue empiric steroid t herapy for COVID until studies back. Not sure that he will be able to prone on bipap therapy. Monitor volume status and run as dry as possible. 2. Renal-normal function but all electrolytes abnormal. HYponatremia and Hypochloremia volume up vs volume down. Sent BNP. Would suggest obtaning echo as well. Not sure what to make of elevated lactate unless that is from increased work of breathing or damage to other tissue unknown. May need to check LFT's and Coags as well. 3. Guarded Prognosis. CCT 31 minutes. Subjective Date of service: 01/05/21 Principal diagnosis: COVID-19 Interval history: Started spiking temps last night. Remains febrile. Remains on 100%. No im provement. Remains sedated. Objective Vital Signs - 12hr 01/04/21 01/04/21 01/04/21 21:00 21:30 22:00 Temperature Pulse Rate 130 H 129 H 129 H Pulse Rate [ From Monitor] Respiratory 30 H 30 H 30 H Rate Blood Pressure 131/74 125/70 124/67 O2 Sat by Pulse 85 85 84 Oximetry 01/04/21 01/04/21 01/04/21 22:30 23:00 23:24 Temperature 101 F H Pulse Rate 130 H 127 H Pulse Rate [ From Monitor] Respiratory 30 H 30 H Rate Blood Pressure 116/71 115/69 O2 Sat by Pulse 83 L 85 Oximetry 01/04/21 01/04/21 01/05/21 23:30 23:33 00:00 Temperature Pulse Rate 131 H 132 H 136 H Pulse Rate [ 136 H From Monitor] Respiratory 30 H 30 H Rate Blood Pressure 120/69 120/68 114/67 O2 Sat by Pulse 85 85 85 Oximetry 01/05/21 01/05/21 01/05/21 00:30 01:00 01:30 Temperature Pulse Rate 137 H 134 H 136 H Pulse Rate [ From Monitor] Respiratory 30 H 30 H 30 H Rate Blood Pressure 117/68 117/71 115/66 O2 Sat by Pulse 80 L 83 L 82 L Oximetry 01/05/21 01/05/21 01/05/21 02:00 02:30 03:00 Temperature Pulse Rate 136 H 138 H 136 H Pulse Rate [ From Monitor] Respiratory 30 H 30 H 30 H Rate Blood Pressure 112/65 113/65 104/65 O2 Sat by Pulse 81 L 81 L 81 L Oximetry 01/05/21 01/05/21 01/05/21 03:30 03:47 04:00 Temperature 102.6 F H Pulse Rate 143 H 137 H Pulse Rate [ 137 H From Monitor] Respiratory 30 H 30 H Rate Blood Pressure 112/67 106/63 O2 Sat by Pulse 81 L 81 L Oximetry 01/05/21 01/05/21 01/05/21 04:30 05:00 05:30 Temperature Pulse Rate 138 H 137 H 136 H Pulse Rate [ From Monitor] Respiratory 30 H 30 H 30 H Rate Blood Pressure 108/62 106/65 99/60 O2 Sat by Pulse 80 L 81 L 80 L Oximetry 01/05/21 01/05/21 01/05/21 06:00 07:22 08:31 Temperature 101.7 F H Pulse Rate 138 H 133 H Pulse Rate [ From Monitor] Respiratory 30 H Rate Blood Pressure 98/60 103/65 O2 Sat by Pulse 81 L 88 Oximetry Constitutional: lethargic, comatose, other (on vent orally intubated) ENT: other (Now intubated) Effort: other (vent support ) Ascultation: Bilateral: diminished breath sounds, rales, rhonchi, other (coarse BS bilaterally) Percussion: Bilateral: not dull Cardiovascular: regular rate and rhythm (tachy ) Gastrointestinal: soft, non-tender, non-distended Integumentary: normal Extremities: no cyanosis, no edema, pink and warm Neurologic: other (sedated) Psychiatric: other (sedated) CBC and BMP: 01/04/21 06:45 01/04/21 06:45 ABG, PT/INR, D-dimer: ABG ABG pH 7.258 pH Units (7.350-7.450) L 01/05/21 Unknown POC ABG pCO2 98.0 mmHg (32.0-48.0) H 01/04/21 04:49 ABG pCO2 93.9 mm Hg 01/05/21 Unknown POC ABG pO2 47.5 mmHg (83-108) L 01/04/21 04:49 ABG pO2 43.9 mm Hg (80.0-90.0) L 01/05/21 Unknown POC ABG HCO3 41.5 01/04/21 04:49 ABG O2 Saturation 73.2 % (95.0-99.0) L 01/05/21 Unknown PT/INR, D-dimer D-Dimer 926.11 ng/mlDDU (0-234) H 11/26/20 06:04 Abnormal lab findings: Abnormal Labs 11/15/20 11/15/20 11/15/20 10:39 10:39 10:39 WBC 14.3 H RBC 5.17 H Hgb Hct MCHC RDW Plt Count Lymph % (Auto) 7.8 L Sharkey % (Auto) 7.6 H Lymph # (Auto) 1.1 L Sharkey # (Auto) 1.1 H Baso # (Auto) Seg Neutrophils % 83.3 H Seg Neuts % (Manual) Lymphocytes % (Manual) Nucleated RBC % Seg Neutrophils # 11.9 H Seg Neutrophils # Man Lymphocytes # (Manual) D-Dimer ABG pH POC ABG pCO2 POC ABG pO2 ABG pO2 ABG HCO3 ABG O2 Saturation ABG Base Excess ABG Hemoglobin ABG Oxyhemoglobin ABG Sodium ABG Potassium ABG Chloride ABG Glucose Oxyhemoglobin Carboxyhemoglobin Sodium 128 L Potassium Chloride 96.0 L Carbon Dioxide BUN Creatinine 0.7 L Glucose 238 H POC Glucose Hemoglobin A1c Lactic Acid 4.10 H* Calcium 7.0 L Magnesium Ferritin Total Bilirubin 1.40 H AST 49 H ALT 70 H Alkaline Phosphatase Lactate Dehydrogenase 663 H Total Creatine Kinase C-Reactive Protein 19.80 H Total Protein Albumin 2.9 L Triglycerides Arterial Blood Glucose Arterial Blood Ionized Calcium Ur Specific Vance Urine WBC (Auto) Vancomycin Trough Coronavirus (PCR) 11/15/20 11/15/20 11/15/20 10:39 10:39 11:20 WBC RBC Hgb Hct MCHC RDW Plt Count Lymph % (Auto) Sharkey % (Auto) Lymph # (Auto) Sharkey # (Auto) Baso # (Auto) Seg Neutrophils % Seg Neuts % (Manual) Lymphocytes % (Manual) Nucleated RBC % Seg Neutrophils # Seg Neutrophils # Man Lymphocytes # (Manual) D-Dimer > 69306 H ABG pH POC ABG pCO2 29.9 L POC ABG pO2 137.3 H ABG pO2 ABG HCO3 ABG O2 Saturation ABG Base Excess ABG Hemoglobin ABG Oxyhemoglobin ABG Sodium 126.5 L ABG Potassium ABG Chloride ABG Glucose 248 H Oxyhemoglobin Carboxyhemoglobin Sodium Potassium Chloride Carbon Dioxide BUN Creatinine Glucose POC Glucose Hemoglobin A1c Lactic Acid Calcium Magnesium Ferritin 672.8 H Total Bilirubin AST ALT Alkaline Phosphatase Lactate Dehydrogenase Total Creatine Kinase C-Reactive Protein Total Protein Albumin Triglycerides Arterial Blood Glucose 248 H Arterial Blood Ionized Calcium 4.1 L Ur Specific Vance Urine WBC (Auto) Vancomycin Trough Coronavirus (PCR) 01/31/21 01/31/21 02/01/21 13:41 23:41 01:45 WBC RBC Hgb Hct MCHC RDW Plt Count Lymph % (Auto) Sharkey % (Auto) Lymph # (Auto) Sharkey # (Auto) Baso # (Auto) Seg Neutrophils % Seg Neuts % (Manual) Lymphocytes % (Manual) Nucleated RBC % Seg Neutrophils # Seg Neutrophils # Man Lymphocytes # (Manual) D-Dimer ABG pH POC ABG pCO2 POC ABG pO2 ABG pO2 ABG HCO3 ABG O2 Saturation ABG Base Excess ABG Hemoglobin ABG Oxyhemoglobin ABG Sodium ABG Potassium ABG Chloride ABG Glucose Oxyhemoglobin Carboxyhemoglobin Sodium Potassium Chloride Carbon Dioxide BUN Creatinine Glucose POC Glucose 284 H Hemoglobin A1c Lactic Acid 2.30 H* Calcium Magnesium Ferritin Total Bilirubin AST ALT Alkaline Phosphatase Lactate Dehydrogenase Total Creatine Kinase C-Reactive Protein Total Protein Albumin Triglycerides Arterial Blood Glucose Arterial Blood Ionized Calcium Ur Specific Vance 1.037 H Urine WBC (Auto) Vancomycin Trough Coronavirus (PCR) 11/16/20 11/16/20 11/16/20 05:29 05:29 05:29 WBC 12.9 H RBC Hgb Hct MCHC RDW Plt Count Lymph % (Auto) 4.5 L Sharkey % (Auto) Lymph # (Auto) 0.6 L Sharkey # (Auto) Baso # (Auto) 0.2 H Seg Neutrophils % 89.8 H Seg Neuts % (Manual) Lymphocytes % (Manual) Nucleated RBC % Seg Neutrophils # 11.5 H Seg Neutrophils # Man Lymphocytes # (Manual) D-Dimer ABG pH POC ABG pCO2 POC ABG pO2 ABG pO2 ABG HCO3 ABG O2 Saturation ABG Base Excess ABG Hemoglobin ABG Oxyhemoglobin ABG Sodium ABG Potassium ABG Chloride ABG Glucose Oxyhemoglobin Carboxyhemoglobin Sodium 131 L Potassium Chloride Carbon Dioxide 21 L BUN 23 H Creatinine 0.6 L Glucose 342 H POC Glucose Hemoglobin A1c Lactic Acid 2.60 H* Calcium 7.0 L Magnesium Ferritin Total Bilirubin AST ALT Alkaline Phosphatase Lactate Dehydrogenase Total Creatine Kinase C-Reactive Protein Total Protein Albumin 2.4 L Triglycerides Arterial Blood Glucose Arterial Blood Ionized Calcium Ur Specific Vance Urine WBC (Auto) Vancomycin Trough Coronavirus (PCR) 11/16/20 11/16/20 11/16/20 05:29 08:11 12:11 WBC RBC Hgb Hct MCHC RDW Plt Count Lymph % (Auto) Sharkey % (Auto) Lymph # (Auto) Sharkey # (Auto) Baso # (Auto) Seg Neutrophils % Seg Neuts % (Manual) Lymphocytes % (Manual) Nucleated RBC % Seg Neutrophils # Seg Neutrophils # Man Lymphocytes # (Manual) D-Dimer ABG pH POC ABG pCO2 POC ABG pO2 ABG pO2 ABG HCO3 ABG O2 Saturation ABG Base Excess ABG Hemoglobin ABG Oxyhemoglobin ABG Sodium ABG Potassium ABG Chloride ABG Glucose Oxyhemoglobin Carboxyhemoglobin Sodium Potassium Chloride Carbon Dioxide BUN Creatinine Glucose POC Glucose 329 H 320 H Hemoglobin A1c 11.7 H Lactic Acid Calcium Magnesium Ferritin Total Bilirubin AST ALT Alkaline Phosphatase Lactate Dehydrogenase Total Creatine Kinase C-Reactive Protein Total Protein Albumin Triglycerides Arterial Blood Glucose Arterial Blood Ionized Calcium Ur Specific Vance Urine WBC (Auto) Vancomycin Trough Coronavirus (PCR) 11/16/20 11/16/20 11/16/20 16:13 21:29 Unknown WBC RBC Hgb Hct MCHC RDW Plt Count Lymph % (Auto) Sharkey % (Auto) Lymph # (Auto) Sharkey # (Auto) Baso # (Auto) Seg Neutrophils % Seg Neuts % (Manual) Lymphocytes % (Manual) Nucleated RBC % Seg Neutrophils # Seg Neutrophils # Man Lymphocytes # (Manual) D-Dimer ABG pH POC ABG pCO2 POC ABG pO2 ABG pO2 ABG HCO3 ABG O2 Saturation ABG Base Excess ABG Hemoglobin ABG Oxyhemoglobin ABG Sodium ABG Potassium ABG Chloride ABG Glucose Oxyhemoglobin Carboxyhemoglobin Sodium Potassium Chloride Carbon Dioxide BUN Creatinine Glucose POC Glucose 257 H 376 H Hemoglobin A1c Lactic Acid Calcium Magnesium Ferritin Total Bilirubin AST ALT Alkaline Phosphatase Lactate Dehydrogenase Total Creatine Kinase C-Reactive Protein Total Protein Albumin Triglycerides Arterial Blood Glucose Arterial Blood Ionized Calcium Ur Specific Vance Urine WBC (Auto) Vancomycin Trough Coronavirus (PCR) Positive A 11/17/20 11/17/20 11/17/20 07:42 12:07 17:25 WBC RBC Hgb Hct MCHC RDW Plt Count Lymph % (Auto) Sharkey % (Auto) Lymph # (Auto) Sharkey # (Auto) Baso # (Auto) Seg Neutrophils % Seg Neuts % (Manual) Lymphocytes % (Manual) Nucleated RBC % Seg Neutrophils # Seg Neutrophils # Man Lymphocytes # (Manual) D-Dimer ABG pH POC ABG pCO2 POC ABG pO2 ABG pO2 ABG HCO3 ABG O2 Saturation ABG Base Excess ABG Hemoglobin ABG Oxyhemoglobin ABG Sodium ABG Potassium ABG Chloride ABG Glucose Oxyhemoglobin Carboxyhemoglobin Sodium Potassium Chloride Carbon Dioxide BUN Creatinine Glucose POC Glucose 231 H 380 H 302 H Hemoglobin A1c Lactic Acid Calcium Magnesium Ferritin Total Bilirubin AST ALT Alkaline Phosphatase Lactate Dehydrogenase Total Creatine Kinase C-Reactive Protein Total Protein Albumin Triglycerides Arterial Blood Glucose Arterial Blood Ionized Calcium Ur Specific Vance Urine WBC (Auto) Vancomycin Trough Coronavirus (PCR) 11/17/20 11/18/20 11/18/20 21:53 04:25 07:45 WBC RBC Hgb Hct MCHC RDW Plt Count Lymph % (Auto) Sharkey % (Auto) Lymph # (Auto) Sharkey # (Auto) Baso # (Auto) Seg Neutrophils % Seg Neuts % (Manual) Lymphocytes % (Manual) Nucleated RBC % Seg Neutrophils # Seg Neutrophils # Man Lymphocytes # (Manual) D-Dimer ABG pH POC ABG pCO2 POC ABG pO2 ABG pO2 ABG HCO3 ABG O2 Saturation ABG Base Excess ABG Hemoglobin ABG Oxyhemoglobin ABG Sodium ABG Potassium ABG Chloride ABG Glucose Oxyhemoglobin Carboxyhemoglobin Sodium 136 L Potassium Chloride Carbon Dioxide BUN 24 H Creatinine 0.6 L Glucose 212 H POC Glucose 293 H 216 H Hemoglobin A1c Lactic Acid Calcium 7.4 L Magnesium Ferritin Total Bilirubin AST 41 H ALT Alkaline Phosphatase 142 H Lactate Dehydrogenase Total Creatine Kinase C-Reactive Protein Total Protein Albumin 2.3 L Triglycerides Arterial Blood Glucose Arterial Blood Ionized Calcium Ur Specific Vance Urine WBC (Auto) Vancomycin Trough Coronavirus (PCR) 11/18/20 11/18/20 11/18/20 12:28 15:58 21:37 WBC RBC Hgb Hct MCHC RDW Plt Count Lymph % (Auto) Sharkey % (Auto) Lymph # (Auto) Sharkey # (Auto) Baso # (Auto) Seg Neutrophils % Seg Neuts % (Manual) Lymphocytes % (Manual) Nucleated RBC % Seg Neutrophils # Seg Neutrophils # Man Lymphocytes # (Manual) D-Dimer ABG pH POC ABG pCO2 POC ABG pO2 ABG pO2 ABG HCO3 ABG O2 Saturation ABG Base Excess ABG Hemoglobin ABG Oxyhemoglobin ABG Sodium ABG Potassium ABG Chloride ABG Glucose Oxyhemoglobin Carboxyhemoglobin Sodium Potassium Chloride Carbon Dioxide BUN Creatinine Glucose POC Glucose 165 H 220 H 311 H Hemoglobin A1c Lactic Acid Calcium Magnesium Ferritin Total Bilirubin AST ALT Alkaline Phosphatase Lactate Dehydrogenase Total Creatine Kinase C-Reactive Protein Total Protein Albumin Triglycerides Arterial Blood Glucose Arterial Blood Ionized Calcium Ur Specific Vance Urine WBC (Auto) Vancomycin Trough Coronavirus (PCR) 11/19/20 11/19/20 11/19/20 05:35 07:40 12:39 WBC RBC Hgb Hct MCHC RDW Plt Count Lymph % (Auto) Sharkey % (Auto) Lymph # (Auto) Sharkey # (Auto) Baso # (Auto) Seg Neutrophils % Seg Neuts % (Manual) Lymphocytes % (Manual) Nucleated RBC % Seg Neutrophils # Seg Neutrophils # Man Lymphocytes # (Manual) D-Dimer ABG pH POC ABG pCO2 POC ABG pO2 ABG pO2 ABG HCO3 ABG O2 Saturation ABG Base Excess ABG Hemoglobin ABG Oxyhemoglobin ABG Sodium ABG Potassium ABG Chloride ABG Glucose Oxyhemoglobin Carboxyhemoglobin Sodium 132 L Potassium Chloride Carbon Dioxide BUN 25 H Creatinine 0.5 L Glucose 179 H POC Glucose 149 H 306 H Hemoglobin A1c Lactic Acid Calcium 7.5 L Magnesium Ferritin Total Bilirubin AST ALT Alkaline Phosphatase 139 H Lactate Dehydrogenase Total Creatine Kinase C-Reactive Protein Total Protein Albumin 2.4 L Triglycerides Arterial Blood Glucose Arterial Blood Ionized Calcium Ur Specific Vance Urine WBC (Auto) Vancomycin Trough Coronavirus (PCR) 11/19/20 11/19/20 11/20/20 16:17 21:25 08:30 WBC RBC Hgb Hct MCHC RDW Plt Count Lymph % (Auto) Sharkey % (Auto) Lymph # (Auto) Sharkey # (Auto) Baso # (Auto) Seg Neutrophils % Seg Neuts % (Manual) Lymphocytes % (Manual) Nucleated RBC % Seg Neutrophils # Seg Neutrophils # Man Lymphocytes # (Manual) D-Dimer ABG pH POC ABG pCO2 POC ABG pO2 ABG pO2 ABG HCO3 ABG O2 Saturation ABG Base Excess ABG Hemoglobin ABG Oxyhemoglobin ABG Sodium ABG Potassium ABG Chloride ABG Glucose Oxyhemoglobin Carboxyhemoglobin Sodium Potassium Chloride Carbon Dioxide BUN Creatinine Glucose POC Glucose 364 H 347 H 141 H Hemoglobin A1c Lactic Acid Calcium Magnesium Ferritin Total Bilirubin AST ALT Alkaline Phosphatase Lactate Dehydrogenase Total Creatine Kinase C-Reactive Protein Total Protein Albumin Triglycerides Arterial Blood Glucose Arterial Blood Ionized Calcium Ur Specific Vance Urine WBC (Auto) Vancomycin Trough Coronavirus (PCR) 11/20/20 11/20/20 11/20/20 08:50 11:32 16:19 WBC RBC Hgb Hct MCHC RDW Plt Count Lymph % (Auto) [place]key % (Auto) Lymph # (Auto) [place]key # (Auto) Baso # (Auto) Seg Neutrophils % Seg Neuts % (Manual) Lymphocytes % (Manual) Nucleated RBC % Seg Neutrophils # Seg Neutrophils # Man Lymphocytes # (Manual) D-Dimer ABG pH POC ABG pCO2 POC ABG pO2 ABG pO2 ABG HCO3 ABG O2 Saturation ABG Base Excess ABG Hemoglobin ABG Oxyhemoglobin ABG Sodium ABG Potassium ABG Chloride ABG Glucose Oxyhemoglobin Carboxyhemoglobin Sodium 132 L Potassium Chloride 97.6 L Carbon Dioxide BUN 26 H Creatinine 0.5 L Glucose 201 H POC Glucose 296 H 327 H Hemoglobin A1c Lactic Acid Calcium 7.9 L Magnesium Ferritin Total Bilirubin AST ALT Alkaline Phosphatase 137 H Lactate Dehydrogenase Total Creatine Kinase C-Reactive Protein Total Protein Albumin 2.6 L Triglycerides Arterial Blood Glucose Arterial Blood Ionized Calcium Ur Specific Vance Urine WBC (Auto) Vancomycin Trough Coronavirus (PCR) 11/20/20 11/21/20 11/21/20 22:09 07:59 13:51 WBC RBC Hgb Hct MCHC RDW Plt Count Lymph % (Auto) [place]key % (Auto) Lymph # (Auto) [place]key # (Auto) Baso # (Auto) Seg Neutrophils % Seg Neuts % (Manual) Lymphocytes % (Manual) Nucleated RBC % Seg Neutrophils # Seg Neutrophils # Man Lymphocytes # (Manual) D-Dimer ABG pH POC ABG pCO2 POC ABG pO2 ABG pO2 ABG HCO3 ABG O2 Saturation ABG Base Excess ABG Hemoglobin ABG Oxyhemoglobin ABG Sodium ABG Potassium ABG Chloride ABG Glucose Oxyhemoglobin Carboxyhemoglobin Sodium Potassium Chloride Carbon Dioxide BUN Creatinine Glucose POC Glucose 311 H 218 H 304 H Hemoglobin A1c Lactic Acid Calcium Magnesium Ferritin Total Bilirubin AST ALT Alkaline Phosphatase Lactate Dehydrogenase Total Creatine Kinase C-Reactive Protein Total Protein Albumin Triglycerides Arterial Blood Glucose Arterial Blood Ionized Calcium Ur Specific Vance Urine WBC (Auto) Vancomycin Trough Coronavirus (PCR) 11/21/20 11/21/20 11/21/20 16:09 21:34 23:00 WBC RBC Hgb Hct MCHC RDW Plt Count Lymph % (Auto) [place] % (Auto) Lymph # (Auto) [place]key # (Auto) Baso # (Auto) Seg Neutrophils % Seg Neuts % (Manual) Lymphocytes % (Manual) Nucleated RBC % Seg Neutrophils # Seg Neutrophils # Man Lymphocytes # (Manual) D-Dimer ABG pH 7.206 L POC ABG pCO2 59.3 H POC ABG pO2 76.7 L ABG pO2 ABG HCO3 ABG O2 Saturation ABG Base Excess ABG Hemoglobin ABG Oxyhemoglobin ABG Sodium 133.1 L ABG Potassium ABG Chloride ABG Glucose 320 H Oxyhemoglobin Carboxyhemoglobin Sodium Potassium Chloride Carbon Dioxide BUN Creatinine Glucose POC Glucose 239 H 279 H Hemoglobin A1c Lactic Acid Calcium Magnesium Ferritin Total Bilirubin AST ALT Alkaline Phosphatase Lactate Dehydrogenase Total Creatine Kinase C-Reactive Protein Total Protein Albumin Triglycerides Arterial Blood Glucose 320 H Arterial Blood Ionized Calcium Ur Specific Vance Urine WBC (Auto) Vancomycin Trough Coronavirus (PCR) 11/22/20 11/22/20 11/22/20 04:52 04:52 04:52 WBC RBC Hgb Hct MCHC RDW Plt Count Lymph % (Auto) [place] % (Auto) Lymph # (Auto) [place]key # (Auto) Baso # (Auto) Seg Neutrophils % Seg Neuts % (Manual) Lymphocytes % (Manual) Nucleated RBC % Seg Neutrophils # Seg Neutrophils # Man Lymphocytes # (Manual) D-Dimer 1858.36 H ABG pH POC ABG pCO2 POC ABG pO2 ABG pO2 ABG HCO3 ABG O2 Saturation ABG Base Excess ABG Hemoglobin ABG Oxyhemoglobin ABG Sodium ABG Potassium ABG Chloride ABG Glucose Oxyhemoglobin Carboxyhemoglobin Sodium Potassium Chloride Carbon Dioxide BUN Creatinine Glucose POC Glucose Hemoglobin A1c Lactic Acid Calcium Magnesium Ferritin 734.2 H Total Bilirubin AST ALT Alkaline Phosphatase Lactate Dehydrogenase 404 H Total Creatine Kinase C-Reactive Protein 2.80 H Total Protein Albumin Triglycerides Arterial Blood Glucose Arterial Blood Ionized Calcium Ur Specific Vance Urine WBC (Auto) Vancomycin Trough Coronavirus (PCR) 11/22/20 11/22/20 11/22/20 05:12 05:39 11:50 WBC RBC Hgb Hct MCHC RDW Plt Count Lymph % (Auto) [place] % (Auto) Lymph # (Auto) [place] # (Auto) Baso # (Auto) Seg Neutrophils % Seg Neuts % (Manual) Lymphocytes % (Manual) Nucleated RBC % Seg Neutrophils # Seg Neutrophils # Man Lymphocytes # (Manual) D-Dimer ABG pH POC ABG pCO2 POC ABG pO2 51.0 L ABG pO2 ABG HCO3 ABG O2 Saturation ABG Base Excess ABG Hemoglobin ABG Oxyhemoglobin ABG Sodium 131.2 L ABG Potassium 4.6 H ABG Chloride ABG Glucose 317 H Oxyhemoglobin Carboxyhemoglobin Sodium Potassium Chloride Carbon Dioxide BUN Creatinine Glucose POC Glucose 340 H 417 H Hemoglobin A1c Lactic Acid Calcium Magnesium Ferritin Total Bilirubin AST ALT Alkaline Phosphatase Lactate Dehydrogenase Total Creatine Kinase C-Reactive Protein Total Protein Albumin Triglycerides Arterial Blood Glucose 317 H Arterial Blood Ionized Calcium 4.4 L Ur Specific Vance Urine WBC (Auto) Vancomycin Trough Coronavirus (PCR) 11/22/20 11/22/20 11/22/20 12:22 12:22 17:10 WBC 14.4 H RBC Hgb Hct MCHC RDW Plt Count Lymph % (Auto) [place] % (Auto) Lymph # (Auto) [place]key # (Auto) Baso # (Auto) Seg Neutrophils % Seg Neuts % (Manual) 98.0 H Lymphocytes % (Manual) Nucleated RBC % Seg Neutrophils # Seg Neutrophils # Man 14.1 H Lymphocytes # (Manual) 0.0 L D-Dimer ABG pH POC ABG pCO2 POC ABG pO2 ABG pO2 ABG HCO3 ABG O2 Saturation ABG Base Excess ABG Hemoglobin ABG Oxyhemoglobin ABG Sodium ABG Potassium ABG Chloride ABG Glucose Oxyhemoglobin Carboxyhemoglobin Sodium 132 L Potassium Chloride Carbon Dioxide BUN 36 H Creatinine 0.6 L Glucose 219 H POC Glucose 157 H Hemoglobin A1c Lactic Acid Calcium 7.2 L Magnesium Ferritin Total Bilirubin AST ALT Alkaline Phosphatase Lactate Dehydrogenase Total Creatine Kinase C-Reactive Protein Total Protein Albumin Triglycerides Arterial Blood Glucose Arterial Blood Ionized Calcium Ur Specific Vance Urine WBC (Auto) Vancomycin Trough Coronavirus (PCR) 11/22/20 11/22/20 11/22/20 18:33 21:44 23:47 WBC RBC Hgb Hct MCHC RDW Plt Count Lymph % (Auto) [place] % (Auto) Lymph # (Auto) [place] # (Auto) Baso # (Auto) Seg Neutrophils % Seg Neuts % (Manual) Lymphocytes % (Manual) Nucleated RBC % Seg Neutrophils # Seg Neutrophils # Man Lymphocytes # (Manual) D-Dimer ABG pH POC ABG pCO2 POC ABG pO2 60.8 L ABG pO2 ABG HCO3 ABG O2 Saturation ABG Base Excess ABG Hemoglobin ABG Oxyhemoglobin 88.1 L ABG Sodium 135.1 L ABG Potassium ABG Chloride ABG Glucose 141 H Oxyhemoglobin Carboxyhemoglobin Sodium Potassium Chloride Carbon Dioxide BUN Creatinine Glucose POC Glucose 117 H 123 H Hemoglobin A1c Lactic Acid Calcium Magnesium Ferritin Total Bilirubin AST ALT Alkaline Phosphatase Lactate Dehydrogenase Total Creatine Kinase C-Reactive Protein Total Protein Albumin Triglycerides Arterial Blood Glucose 141 H Arterial Blood Ionized Calcium Ur Specific Vance Urine WBC (Auto) Vancomycin Trough Coronavirus (PCR) 11/23/20 11/23/20 11/23/20 04:00 04:00 05:23 WBC 14.4 H RBC Hgb Hct MCHC RDW Plt Count Lymph % (Auto) [place] % (Auto) Lymph # (Auto) [place] # (Auto) Baso # (Auto) Seg Neutrophils % Seg Neuts % (Manual) Lymphocytes % (Manual) Nucleated RBC % Seg Neutrophils # Seg Neutrophils # Man Lymphocytes # (Manual) D-Dimer ABG pH POC ABG pCO2 POC ABG pO2 ABG pO2 ABG HCO3 ABG O2 Saturation ABG Base Excess ABG Hemoglobin ABG Oxyhemoglobin ABG Sodium ABG Potassium ABG Chloride ABG Glucose Oxyhemoglobin Carboxyhemoglobin Sodium 136 L Potassium Chloride Carbon Dioxide BUN 33 H Creatinine 0.6 L Glucose 115 H POC Glucose 173 H Hemoglobin A1c Lactic Acid Calcium 7.1 L Magnesium Ferritin Total Bilirubin AST 64 H ALT 75 H Alkaline Phosphatase Lactate Dehydrogenase Total Creatine Kinase C-Reactive Protein Total Protein 5.9 L D Albumin 2.4 L Triglycerides Arterial Blood Glucose Arterial Blood Ionized Calcium Ur Specific Vance Urine WBC (Auto) Vancomycin Trough Coronavirus (PCR) 11/23/20 11/23/20 11/23/20 05:40 11:27 17:10 WBC RBC Hgb Hct MCHC RDW Plt Count Lymph % (Auto) [place] % (Auto) Lymph # (Auto) [place] # (Auto) Baso # (Auto) Seg Neutrophils % Seg Neuts % (Manual) Lymphocytes % (Manual) Nucleated RBC % Seg Neutrophils # Seg Neutrophils # Man Lymphocytes # (Manual) D-Dimer ABG pH POC ABG pCO2 POC ABG pO2 56.5 L ABG pO2 ABG HCO3 ABG O2 Saturation ABG Base Excess ABG Hemoglobin ABG Oxyhemoglobin ABG Sodium ABG Potassium ABG Chloride 109.0 H ABG Glucose 114 H Oxyhemoglobin Carboxyhemoglobin Sodium Potassium Chloride Carbon Dioxide BUN Creatinine Glucose POC Glucose 114 H 136 H Hemoglobin A1c Lactic Acid Calcium Magnesium Ferritin Total Bilirubin AST ALT Alkaline Phosphatase Lactate Dehydrogenase Total Creatine Kinase C-Reactive Protein Total Protein Albumin Triglycerides Arterial Blood Glucose 114 H Arterial Blood Ionized Calcium 4.5 L Ur Specific Vance Urine WBC (Auto) Vancomycin Trough Coronavirus (PCR) 11/24/20 11/24/20 11/24/20 05:14 05:14 05:14 WBC RBC Hgb Hct MCHC RDW Plt Count Lymph % (Auto) [place] % (Auto) Lymph # (Auto) [place] # (Auto) Baso # (Auto) Seg Neutrophils % Seg Neuts % (Manual) Lymphocytes % (Manual) Nucleated RBC % Seg Neutrophils # Seg Neutrophils # Man Lymphocytes # (Manual) D-Dimer 1433.39 H ABG pH POC ABG pCO2 POC ABG pO2 ABG pO2 ABG HCO3 ABG O2 Saturation ABG Base Excess ABG Hemoglobin ABG Oxyhemoglobin ABG Sodium ABG Potassium ABG Chloride ABG Glucose Oxyhemoglobin Carboxyhemoglobin Sodium Potassium Chloride Carbon Dioxide BUN Creatinine Glucose POC Glucose Hemoglobin A1c Lactic Acid Calcium Magnesium Ferritin 997.5 H Total Bilirubin AST ALT Alkaline Phosphatase Lactate Dehydrogenase 463 H Total Creatine Kinase C-Reactive Protein Total Protein Albumin Triglycerides Arterial Blood Glucose Arterial Blood Ionized Calcium Ur Specific Vance Urine WBC (Auto) Vancomycin Trough Coronavirus (PCR) 11/24/20 11/24/20 11/24/20 05:31 05:36 12:05 WBC RBC Hgb Hct MCHC RDW Plt Count Lymph % (Auto) [place] % (Auto) Lymph # (Auto) [place] # (Auto) Baso # (Auto) Seg Neutrophils % Seg Neuts % (Manual) Lymphocytes % (Manual) Nucleated RBC % Seg Neutrophils # Seg Neutrophils # Man Lymphocytes # (Manual) D-Dimer ABG pH POC ABG pCO2 POC ABG pO2 57.2 L ABG pO2 ABG HCO3 ABG O2 Saturation ABG Base Excess ABG Hemoglobin ABG Oxyhemoglobin ABG Sodium ABG Potassium ABG Chloride ABG Glucose 180 H Oxyhemoglobin Carboxyhemoglobin Sodium Potassium Chloride Carbon Dioxide BUN Creatinine Glucose POC Glucose 199 H 143 H Hemoglobin A1c Lactic Acid Calcium Magnesium Ferritin Total Bilirubin AST ALT Alkaline Phosphatase Lactate Dehydrogenase Total Creatine Kinase C-Reactive Protein Total Protein Albumin Triglycerides Arterial Blood Glucose 180 H Arterial Blood Ionized Calcium 4.5 L Ur Specific Vance Urine WBC (Auto) Vancomycin Trough Coronavirus (PCR) 11/24/20 11/24/20 11/24/20 12:14 17:47 23:47 WBC RBC Hgb Hct MCHC RDW Plt Count Lymph % (Auto) [place] % (Auto) Lymph # (Auto) [place]key # (Auto) Baso # (Auto) Seg Neutrophils % Seg Neuts % (Manual) Lymphocytes % (Manual) Nucleated RBC % Seg Neutrophils # Seg Neutrophils # Man Lymphocytes # (Manual) D-Dimer ABG pH 7.261 L POC ABG pCO2 59.7 H POC ABG pO2 75.7 L ABG pO2 ABG HCO3 ABG O2 Saturation ABG Base Excess ABG Hemoglobin ABG Oxyhemoglobin 92.5 L ABG Sodium ABG Potassium ABG Chloride 108.0 H ABG Glucose 150 H Oxyhemoglobin Carboxyhemoglobin Sodium Potassium Chloride Carbon Dioxide BUN Creatinine Glucose POC Glucose 223 H 179 H Hemoglobin A1c Lactic Acid Calcium Magnesium Ferritin Total Bilirubin AST ALT Alkaline Phosphatase Lactate Dehydrogenase Total Creatine Kinase C-Reactive Protein Total Protein Albumin Triglycerides Arterial Blood Glucose 150 H Arterial Blood Ionized Calcium Ur Specific Vance Urine WBC (Auto) Vancomycin Trough Coronavirus (PCR) 11/25/20 11/25/20 11/25/20 03:29 05:07 05:15 WBC 13.9 H RBC Hgb Hct MCHC RDW Plt Count Lymph % (Auto) [place] % (Auto) Lymph # (Auto) [place]key # (Auto) Baso # (Auto) Seg Neutrophils % Seg Neuts % (Manual) 97.0 H Lymphocytes % (Manual) Nucleated RBC % Seg Neutrophils # Seg Neutrophils # Man 13.5 H Lymphocytes # (Manual) 0.0 L D-Dimer ABG pH 7.272 L POC ABG pCO2 69.0 H POC ABG pO2 132.9 H ABG pO2 ABG HCO3 ABG O2 Saturation ABG Base Excess ABG Hemoglobin ABG Oxyhemoglobin ABG Sodium ABG Potassium ABG Chloride ABG Glucose 174 H Oxyhemoglobin Carboxyhemoglobin Sodium Potassium Chloride Carbon Dioxide BUN Creatinine Glucose POC Glucose 168 H Hemoglobin A1c Lactic Acid Calcium Magnesium Ferritin Total Bilirubin AST ALT Alkaline Phosphatase Lactate Dehydrogenase Total Creatine Kinase C-Reactive Protein Total Protein Albumin Triglycerides Arterial Blood Glucose 174 H Arterial Blood Ionized Calcium Ur Specific Vance Urine WBC (Auto) Vancomycin Trough Coronavirus (PCR) 11/25/20 11/25/20 11/25/20 05:15 11:25 17:35 WBC RBC Hgb Hct MCHC RDW Plt Count Lymph % (Auto) [place] % (Auto) Lymph # (Auto) [place] # (Auto) Baso # (Auto) Seg Neutrophils % Seg Neuts % (Manual) Lymphocytes % (Manual) Nucleated RBC % Seg Neutrophils # Seg Neutrophils # Man Lymphocytes # (Manual) D-Dimer ABG pH POC ABG pCO2 POC ABG pO2 ABG pO2 ABG HCO3 ABG O2 Saturation ABG Base Excess ABG Hemoglobin ABG Oxyhemoglobin ABG Sodium ABG Potassium ABG Chloride ABG Glucose Oxyhemoglobin Carboxyhemoglobin Sodium Potassium Chloride Carbon Dioxide BUN 29 H Creatinine 0.5 L Glucose 161 H POC Glucose 224 H 228 H Hemoglobin A1c Lactic Acid Calcium 7.8 L Magnesium Ferritin Total Bilirubin AST 89 H ALT 129 H Alkaline Phosphatase Lactate Dehydrogenase Total Creatine Kinase C-Reactive Protein Total Protein 5.8 L Albumin 2.5 L Triglycerides Arterial Blood Glucose Arterial Blood Ionized Calcium Ur Specific Vance Urine WBC (Auto) Vancomycin Trough Coronavirus (PCR) 11/25/20 11/25/20 11/26/20 20:45 23:28 04:00 WBC RBC Hgb Hct MCHC RDW Plt Count Lymph % (Auto) [place] % (Auto) Lymph # (Auto) [place] # (Auto) Baso # (Auto) Seg Neutrophils % Seg Neuts % (Manual) Lymphocytes % (Manual) Nucleated RBC % Seg Neutrophils # Seg Neutrophils # Man Lymphocytes # (Manual) D-Dimer ABG pH POC ABG pCO2 POC ABG pO2 ABG pO2 ABG HCO3 ABG O2 Saturation ABG Base Excess ABG Hemoglobin ABG Oxyhemoglobin ABG Sodium ABG Potassium ABG Chloride ABG Glucose Oxyhemoglobin Carboxyhemoglobin Sodium Potassium Chloride Carbon Dioxide BUN Creatinine Glucose POC Glucose 177 H 243 H Hemoglobin A1c Lactic Acid Calcium Magnesium Ferritin 778.8 H Total Bilirubin AST ALT Alkaline Phosphatase Lactate Dehydrogenase Total Creatine Kinase C-Reactive Protein Total Protein Albumin Triglycerides Arterial Blood Glucose Arterial Blood Ionized Calcium Ur Specific Vance Urine WBC (Auto) Vancomycin Trough Coronavirus (PCR) 11/26/20 11/26/20 11/26/20 04:00 05:34 06:04 WBC RBC Hgb Hct MCHC RDW Plt Count Lymph % (Auto) [place] % (Auto) Lymph # (Auto) [place]key # (Auto) Baso # (Auto) Seg Neutrophils % Seg Neuts % (Manual) Lymphocytes % (Manual) Nucleated RBC % Seg Neutrophils # Seg Neutrophils # Man Lymphocytes # (Manual) D-Dimer 926.11 H ABG pH POC ABG pCO2 POC ABG pO2 ABG pO2 ABG HCO3 ABG O2 Saturation ABG Base Excess ABG Hemoglobin ABG Oxyhemoglobin ABG Sodium ABG Potassium ABG Chloride ABG Glucose Oxyhemoglobin Carboxyhemoglobin Sodium Potassium Chloride Carbon Dioxide 39 H D BUN 30 H Creatinine 0.5 L Glucose 193 H POC Glucose 178 H Hemoglobin A1c Lactic Acid Calcium 7.7 L Magnesium Ferritin Total Bilirubin AST 65 H ALT 132 H Alkaline Phosphatase Lactate Dehydrogenase 288 H Total Creatine Kinase C-Reactive Protein 1.40 H Total Protein 5.7 L Albumin 2.4 L Triglycerides Arterial Blood Glucose Arterial Blood Ionized Calcium Ur Specific Vance Urine WBC (Auto) Vancomycin Trough Coronavirus (PCR) 11/26/20 11/26/20 11/26/20 06:04 08:47 11:20 WBC 12.4 H RBC Hgb Hct MCHC RDW Plt Count Lymph % (Auto) [place] % (Auto) Lymph # (Auto) [place]key # (Auto) Baso # (Auto) Seg Neutrophils % Seg Neuts % (Manual) 98.0 H Lymphocytes % (Manual) 1.0 L Nucleated RBC % Seg Neutrophils # Seg Neutrophils # Man 12.2 H Lymphocytes # (Manual) 0.1 L D-Dimer ABG pH POC ABG pCO2 75.2 H POC ABG pO2 61.9 L ABG pO2 ABG HCO3 ABG O2 Saturation ABG Base Excess ABG Hemoglobin ABG Oxyhemoglobin 90.3 L ABG Sodium ABG Potassium ABG Chloride ABG Glucose 243 H Oxyhemoglobin Carboxyhemoglobin Sodium Potassium Chloride Carbon Dioxide BUN Creatinine Glucose POC Glucose 255 H Hemoglobin A1c Lactic Acid Calcium Magnesium Ferritin Total Bilirubin AST ALT Alkaline Phosphatase Lactate Dehydrogenase Total Creatine Kinase C-Reactive Protein Total Protein Albumin Triglycerides Arterial Blood Glucose 243 H Arterial Blood Ionized Calcium Ur Specific Vance Urine WBC (Auto) Vancomycin Trough Coronavirus (PCR) 11/26/20 11/26/20 11/26/20 16:20 17:15 23:41 WBC RBC Hgb Hct MCHC RDW Plt Count Lymph % (Auto) [place] % (Auto) Lymph # (Auto) [place]key # (Auto) Baso # (Auto) Seg Neutrophils % Seg Neuts % (Manual) Lymphocytes % (Manual) Nucleated RBC % Seg Neutrophils # Seg Neutrophils # Man Lymphocytes # (Manual) D-Dimer ABG pH POC ABG pCO2 66.6 H POC ABG pO2 78.1 L ABG pO2 ABG HCO3 ABG O2 Saturation ABG Base Excess ABG Hemoglobin ABG Oxyhemoglobin ABG Sodium ABG Potassium ABG Chloride ABG Glucose 244 H Oxyhemoglobin Carboxyhemoglobin Sodium Potassium Chloride Carbon Dioxide BUN Creatinine Glucose POC Glucose 219 H 210 H Hemoglobin A1c Lactic Acid Calcium Magnesium Ferritin Total Bilirubin AST ALT Alkaline Phosphatase Lactate Dehydrogenase Total Creatine Kinase C-Reactive Protein Total Protein Albumin Triglycerides Arterial Blood Glucose 244 H Arterial Blood Ionized Calcium Ur Specific Vance Urine WBC (Auto) Vancomycin Trough Coronavirus (PCR) 11/27/20 11/27/20 11/27/20 04:46 05:38 06:25 WBC 13.8 H RBC Hgb Hct MCHC RDW Plt Count Lymph % (Auto) 2.0 L [place]key % (Auto) Lymph # (Auto) 0.3 L [place]key # (Auto) Baso # (Auto) Seg Neutrophils % Seg Neuts % (Manual) 96.0 H Lymphocytes % (Manual) Nucleated RBC % Seg Neutrophils # 12.7 H Seg Neutrophils # Man 13.2 H Lymphocytes # (Manual) 0.0 L D-Dimer ABG pH POC ABG pCO2 63.0 H POC ABG pO2 53.6 L ABG pO2 ABG HCO3 ABG O2 Saturation ABG Base Excess ABG Hemoglobin ABG Oxyhemoglobin 87.8 L ABG Sodium 115.4 L ABG Potassium ABG Chloride ABG Glucose 219 H Oxyhemoglobin Carboxyhemoglobin Sodium Potassium Chloride Carbon Dioxide BUN Creatinine Glucose POC Glucose 227 H Hemoglobin A1c Lactic Acid Calcium Magnesium Ferritin Total Bilirubin AST ALT Alkaline Phosphatase Lactate Dehydrogenase Total Creatine Kinase C-Reactive Protein Total Protein Albumin Triglycerides Arterial Blood Glucose 219 H Arterial Blood Ionized Calcium Ur Specific Vance Urine WBC (Auto) Vancomycin Trough Coronavirus (PCR) 11/27/20 11/27/20 11/27/20 06:25 18:05 23:29 WBC RBC Hgb Hct MCHC RDW Plt Count Lymph % (Auto) [place] % (Auto) Lymph # (Auto) [place]key # (Auto) Baso # (Auto) Seg Neutrophils % Seg Neuts % (Manual) Lymphocytes % (Manual) Nucleated RBC % Seg Neutrophils # Seg Neutrophils # Man Lymphocytes # (Manual) D-Dimer ABG pH POC ABG pCO2 POC ABG pO2 ABG pO2 ABG HCO3 ABG O2 Saturation ABG Base Excess ABG Hemoglobin ABG Oxyhemoglobin ABG Sodium ABG Potassium ABG Chloride ABG Glucose Oxyhemoglobin Carboxyhemoglobin Sodium Potassium Chloride Carbon Dioxide 38 H BUN 34 H Creatinine 0.4 L Glucose 243 H POC Glucose 329 H 227 H Hemoglobin A1c Lactic Acid Calcium 7.9 L Magnesium Ferritin Total Bilirubin AST 50 H ALT 110 H Alkaline Phosphatase Lactate Dehydrogenase Total Creatine Kinase C-Reactive Protein Total Protein 6.1 L Albumin 2.4 L Triglycerides Arterial Blood Glucose Arterial Blood Ionized Calcium Ur Specific Vance Urine WBC (Auto) Vancomycin Trough Coronavirus (PCR) 11/28/20 11/28/20 11/28/20 03:45 03:45 03:46 WBC 12.2 H RBC Hgb Hct MCHC RDW Plt Count Lymph % (Auto) [place] % (Auto) Lymph # (Auto) [place]key # (Auto) Baso # (Auto) Seg Neutrophils % Seg Neuts % (Manual) 93.0 H Lymphocytes % (Manual) 2.0 L Nucleated RBC % Seg Neutrophils # Seg Neutrophils # Man 11.3 H Lymphocytes # (Manual) 0.2 L D-Dimer ABG pH POC ABG pCO2 68.4 H POC ABG pO2 55.4 L ABG pO2 ABG HCO3 ABG O2 Saturation ABG Base Excess ABG Hemoglobin ABG Oxyhemoglobin ABG Sodium ABG Potassium ABG Chloride ABG Glucose 197 H Oxyhemoglobin Carboxyhemoglobin Sodium Potassium Chloride Carbon Dioxide 36 H BUN 37 H Creatinine 0.4 L Glucose 194 H POC Glucose Hemoglobin A1c Lactic Acid Calcium 8.1 L Magnesium Ferritin Total Bilirubin AST ALT 86 H Alkaline Phosphatase Lactate Dehydrogenase Total Creatine Kinase C-Reactive Protein Total Protein 6.0 L Albumin 2.3 L Triglycerides Arterial Blood Glucose 197 H Arterial Blood Ionized Calcium Ur Specific Vance Urine WBC (Auto) Vancomycin Trough Coronavirus (PCR) 11/28/20 11/28/20 11/29/20 05:24 12:21 04:41 WBC RBC Hgb Hct MCHC RDW Plt Count Lymph % (Auto) [place] % (Auto) Lymph # (Auto) [place]key # (Auto) Baso # (Auto) Seg Neutrophils % Seg Neuts % (Manual) Lymphocytes % (Manual) Nucleated RBC % Seg Neutrophils # Seg Neutrophils # Man Lymphocytes # (Manual) D-Dimer ABG pH POC ABG pCO2 55.1 H POC ABG pO2 53.6 L ABG pO2 ABG HCO3 ABG O2 Saturation ABG Base Excess ABG Hemoglobin ABG Oxyhemoglobin 87.1 L ABG Sodium 131.2 L ABG Potassium ABG Chloride ABG Glucose 164 H Oxyhemoglobin Carboxyhemoglobin Sodium Potassium Chloride Carbon Dioxide BUN Creatinine Glucose POC Glucose 173 H 126 H Hemoglobin A1c Lactic Acid Calcium Magnesium Ferritin Total Bilirubin AST ALT Alkaline Phosphatase Lactate Dehydrogenase Total Creatine Kinase C-Reactive Protein Total Protein Albumin Triglycerides Arterial Blood Glucose 164 H Arterial Blood Ionized Calcium 4.4 L Ur Specific Vance Urine WBC (Auto) Vancomycin Trough Coronavirus (PCR) 11/29/20 11/29/20 11/29/20 05:29 12:41 13:28 WBC RBC Hgb Hct MCHC RDW Plt Count Lymph % (Auto) [place] % (Auto) Lymph # (Auto) [place]key # (Auto) Baso # (Auto) Seg Neutrophils % Seg Neuts % (Manual) Lymphocytes % (Manual) Nucleated RBC % Seg Neutrophils # Seg Neutrophils # Man Lymphocytes # (Manual) D-Dimer ABG pH POC ABG pCO2 POC ABG pO2 ABG pO2 ABG HCO3 ABG O2 Saturation ABG Base Excess ABG Hemoglobin ABG Oxyhemoglobin ABG Sodium ABG Potassium ABG Chloride ABG Glucose Oxyhemoglobin Carboxyhemoglobin Sodium Potassium Chloride Carbon Dioxide 40 H BUN 32 H Creatinine 0.4 L Glucose 274 H POC Glucose 173 H 257 H Hemoglobin A1c Lactic Acid Calcium 7.2 L Magnesium Ferritin Total Bilirubin AST 57 H ALT 102 H Alkaline Phosphatase Lactate Dehydrogenase Total Creatine Kinase C-Reactive Protein Total Protein 5.7 L Albumin 2.1 L Triglycerides Arterial Blood Glucose Arterial Blood Ionized Calcium Ur Specific Vance Urine WBC (Auto) Vancomycin Trough Coronavirus (PCR) 11/29/20 11/29/20 11/29/20 15:40 17:36 21:26 WBC RBC Hgb Hct MCHC RDW Plt Count Lymph % (Auto) [place]key % (Auto) Lymph # (Auto) [place]key # (Auto) Baso # (Auto) Seg Neutrophils % Seg Neuts % (Manual) Lymphocytes % (Manual) Nucleated RBC % Seg Neutrophils # Seg Neutrophils # Man Lymphocytes # (Manual) D-Dimer ABG pH POC ABG pCO2 POC ABG pO2 ABG pO2 ABG HCO3 ABG O2 Saturation ABG Base Excess ABG Hemoglobin ABG Oxyhemoglobin ABG Sodium ABG Potassium ABG Chloride ABG Glucose Oxyhemoglobin Carboxyhemoglobin Sodium Potassium Chloride Carbon Dioxide BUN Creatinine Glucose POC Glucose 240 H 244 H Hemoglobin A1c Lactic Acid Calcium Magnesium Ferritin Total Bilirubin AST ALT Alkaline Phosphatase Lactate Dehydrogenase Total Creatine Kinase C-Reactive Protein Total Protein Albumin Triglycerides Arterial Blood Glucose Arterial Blood Ionized Calcium Ur Specific Vance Urine WBC (Auto) Vancomycin Trough 4.0 L Coronavirus (PCR) 11/29/20 11/30/20 11/30/20 23:26 03:30 03:30 WBC RBC Hgb Hct MCHC RDW Plt Count Lymph % (Auto) [place]key % (Auto) Lymph # (Auto) [place]key # (Auto) Baso # (Auto) Seg Neutrophils % Seg Neuts % (Manual) 97.0 H Lymphocytes % (Manual) 1.0 L Nucleated RBC % Seg Neutrophils # Seg Neutrophils # Man 9.9 H Lymphocytes # (Manual) 0.1 L D-Dimer ABG pH POC ABG pCO2 POC ABG pO2 ABG pO2 ABG HCO3 ABG O2 Saturation ABG Base Excess ABG Hemoglobin ABG Oxyhemoglobin ABG Sodium ABG Potassium ABG Chloride ABG Glucose Oxyhemoglobin Carboxyhemoglobin Sodium Potassium Chloride Carbon Dioxide 38 H BUN 34 H Creatinine 0.4 L Glucose 305 H POC Glucose 283 H Hemoglobin A1c Lactic Acid Calcium 7.6 L Magnesium Ferritin Total Bilirubin AST ALT 89 H Alkaline Phosphatase Lactate Dehydrogenase Total Creatine Kinase C-Reactive Protein Total Protein 6.0 L Albumin 2.3 L Triglycerides Arterial Blood Glucose Arterial Blood Ionized Calcium Ur Specific Vance Urine WBC (Auto) Vancomycin Trough Coronavirus (PCR) 11/30/20 11/30/20 11/30/20 03:57 05:22 12:05 WBC RBC Hgb Hct MCHC RDW Plt Count Lymph % (Auto) Sharkey % (Auto) Lymph # (Auto) Sharkey # (Auto) Baso # (Auto) Seg Neutrophils % Seg Neuts % (Manual) Lymphocytes % (Manual) Nucleated RBC % Seg Neutrophils # Seg Neutrophils # Man Lymphocytes # (Manual) D-Dimer ABG pH POC ABG pCO2 60.8 H POC ABG pO2 51.1 L ABG pO2 ABG HCO3 ABG O2 Saturation ABG Base Excess ABG Hemoglobin ABG Oxyhemoglobin 84.6 L ABG Sodium ABG Potassium ABG Chloride ABG Glucose 315 H Oxyhemoglobin Carboxyhemoglobin Sodium Potassium Chloride Carbon Dioxide BUN Creatinine Glucose POC Glucose 295 H 413 H Hemoglobin A1c Lactic Acid Calcium Magnesium Ferritin Total Bilirubin AST ALT Alkaline Phosphatase Lactate Dehydrogenase Total Creatine Kinase C-Reactive Protein Total Protein Albumin Triglycerides Arterial Blood Glucose 315 H Arterial Blood Ionized Calcium 4.5 L Ur Specific Vance Urine WBC (Auto) Vancomycin Trough Coronavirus (PCR) 11/30/20 11/30/20 12/01/20 17:24 23:25 02:14 WBC RBC Hgb Hct MCHC RDW Plt Count Lymph % (Auto) Sharkey % (Auto) Lymph # (Auto) Sharkey # (Auto) Baso # (Auto) Seg Neutrophils % Seg Neuts % (Manual) Lymphocytes % (Manual) Nucleated RBC % Seg Neutrophils # Seg Neutrophils # Man Lymphocytes # (Manual) D-Dimer ABG pH 7.278 L POC ABG pCO2 78.1 H POC ABG pO2 79.5 L ABG pO2 ABG HCO3 ABG O2 Saturation ABG Base Excess ABG Hemoglobin 11.6 L ABG Oxyhemoglobin ABG Sodium 134.5 L ABG Potassium 4.6 H ABG Chloride ABG Glucose 286 H Oxyhemoglobin Carboxyhemoglobin Sodium Potassium Chloride Carbon Dioxide BUN Creatinine Glucose POC Glucose 305 H 302 H Hemoglobin A1c Lactic Acid Calcium Magnesium Ferritin Total Bilirubin AST ALT Alkaline Phosphatase Lactate Dehydrogenase Total Creatine Kinase C-Reactive Protein Total Protein Albumin Triglycerides Arterial Blood Glucose 286 H Arterial Blood Ionized Calcium Ur Specific Vance Urine WBC (Auto) Vancomycin Trough Coronavirus (PCR) 12/01/20 12/01/20 12/01/20 03:35 03:35 05:22 WBC 13.4 H RBC 3.54 L Hgb 10.4 L Hct 31.8 L MCHC RDW Plt Count Lymph % (Auto) Sharkey % (Auto) Lymph # (Auto) Sharkey # (Auto) Baso # (Auto) Seg Neutrophils % Seg Neuts % (Manual) 95.0 H Lymphocytes % (Manual) 3.0 L Nucleated RBC % Seg Neutrophils # Seg Neutrophils # Man 12.7 H Lymphocytes # (Manual) 0.4 L D-Dimer ABG pH POC ABG pCO2 POC ABG pO2 ABG pO2 ABG HCO3 ABG O2 Saturation ABG Base Excess ABG Hemoglobin ABG Oxyhemoglobin ABG Sodium ABG Potassium ABG Chloride ABG Glucose Oxyhemoglobin Carboxyhemoglobin Sodium Potassium Chloride Carbon Dioxide 35 H BUN 34 H Creatinine 0.5 L Glucose 279 H POC Glucose 259 H Hemoglobin A1c Lactic Acid Calcium 7.6 L Magnesium Ferritin Total Bilirubin AST ALT 63 H Alkaline Phosphatase Lactate Dehydrogenase Total Creatine Kinase C-Reactive Protein Total Protein 4.8 L Albumin 2.1 L Triglycerides Arterial Blood Glucose Arterial Blood Ionized Calcium Ur Specific Vance Urine WBC (Auto) Vancomycin Trough Coronavirus (PCR) 12/01/20 12/01/20 12/01/20 12:05 17:40 23:46 WBC RBC Hgb Hct MCHC RDW Plt Count Lymph % (Auto) [place]key % (Auto) Lymph # (Auto) [place]key # (Auto) Baso # (Auto) Seg Neutrophils % Seg Neuts % (Manual) Lymphocytes % (Manual) Nucleated RBC % Seg Neutrophils # Seg Neutrophils # Man Lymphocytes # (Manual) D-Dimer ABG pH POC ABG pCO2 POC ABG pO2 ABG pO2 ABG HCO3 ABG O2 Saturation ABG Base Excess ABG Hemoglobin ABG Oxyhemoglobin ABG Sodium ABG Potassium ABG Chloride ABG Glucose Oxyhemoglobin Carboxyhemoglobin Sodium Potassium Chloride Carbon Dioxide BUN Creatinine Glucose POC Glucose 197 H 244 H 284 H Hemoglobin A1c Lactic Acid Calcium Magnesium Ferritin Total Bilirubin AST ALT Alkaline Phosphatase Lactate Dehydrogenase Total Creatine Kinase C-Reactive Protein Total Protein Albumin Triglycerides Arterial Blood Glucose Arterial Blood Ionized Calcium Ur Specific Vance Urine WBC (Auto) Vancomycin Trough Coronavirus (PCR) 12/02/20 12/02/20 12/02/20 02:14 03:03 04:11 WBC 16.5 H RBC 3.55 L Hgb 10.5 L Hct 31.9 L MCHC RDW Plt Count Lymph % (Auto) [place]key % (Auto) Lymph # (Auto) [place]key # (Auto) Baso # (Auto) Seg Neutrophils % Seg Neuts % (Manual) 90.0 H Lymphocytes % (Manual) 3.0 L Nucleated RBC % Seg Neutrophils # Seg Neutrophils # Man 14.9 H Lymphocytes # (Manual) 0.5 L D-Dimer ABG pH POC ABG pCO2 74.8 H POC ABG pO2 58.9 L ABG pO2 ABG HCO3 ABG O2 Saturation ABG Base Excess ABG Hemoglobin 11.5 L ABG Oxyhemoglobin ABG Sodium ABG Potassium ABG Chloride ABG Glucose 264 H Oxyhemoglobin Carboxyhemoglobin Sodium Potassium Chloride Carbon Dioxide 37 H BUN 30 H Creatinine 0.4 L Glucose 245 H POC Glucose Hemoglobin A1c Lactic Acid Calcium 7.5 L Magnesium Ferritin Total Bilirubin AST ALT Alkaline Phosphatase Lactate Dehydrogenase Total Creatine Kinase C-Reactive Protein Total Protein 5.2 L Albumin 2.2 L Triglycerides Arterial Blood Glucose 264 H Arterial Blood Ionized Calcium 4.5 L Ur Specific Vance Urine WBC (Auto) Vancomycin Trough Coronavirus (PCR) 12/02/20 12/02/20 12/02/20 05:19 11:46 17:52 WBC RBC Hgb Hct MCHC RDW Plt Count Lymph % (Auto) [place]key % (Auto) Lymph # (Auto) [place]key # (Auto) Baso # (Auto) Seg Neutrophils % Seg Neuts % (Manual) Lymphocytes % (Manual) Nucleated RBC % Seg Neutrophils # Seg Neutrophils # Man Lymphocytes # (Manual) D-Dimer ABG pH POC ABG pCO2 POC ABG pO2 ABG pO2 ABG HCO3 ABG O2 Saturation ABG Base Excess ABG Hemoglobin ABG Oxyhemoglobin ABG Sodium ABG Potassium ABG Chloride ABG Glucose Oxyhemoglobin Carboxyhemoglobin Sodium Potassium Chloride Carbon Dioxide BUN Creatinine Glucose POC Glucose 238 H 236 H 233 H Hemoglobin A1c Lactic Acid Calcium Magnesium Ferritin Total Bilirubin AST ALT Alkaline Phosphatase Lactate Dehydrogenase Total Creatine Kinase C-Reactive Protein Total Protein Albumin Triglycerides Arterial Blood Glucose Arterial Blood Ionized Calcium Ur Specific Vance Urine WBC (Auto) Vancomycin Trough Coronavirus (PCR) 12/02/20 12/03/20 12/03/20 23:23 03:21 04:35 WBC RBC Hgb Hct MCHC RDW Plt Count 112 L Lymph % (Auto) [place]key % (Auto) Lymph # (Auto) [place]key # (Auto) Baso # (Auto) Seg Neutrophils % Seg Neuts % (Manual) 93.0 H Lymphocytes % (Manual) 4.0 L Nucleated RBC % Seg Neutrophils # Seg Neutrophils # Man 9.1 H Lymphocytes # (Manual) 0.4 L D-Dimer ABG pH 7.299 L POC ABG pCO2 82.1 H POC ABG pO2 62.4 L ABG pO2 ABG HCO3 ABG O2 Saturation ABG Base Excess ABG Hemoglobin 11.5 L ABG Oxyhemoglobin 89.6 L ABG Sodium 134.3 L ABG Potassium ABG Chloride 95.0 L ABG Glucose 203 H Oxyhemoglobin Carboxyhemoglobin Sodium Potassium Chloride Carbon Dioxide BUN Creatinine Glucose POC Glucose 213 H Hemoglobin A1c Lactic Acid Calcium Magnesium Ferritin Total Bilirubin AST ALT Alkaline Phosphatase Lactate Dehydrogenase Total Creatine Kinase C-Reactive Protein Total Protein Albumin Triglycerides Arterial Blood Glucose 203 H Arterial Blood Ionized Calcium 4.5 L Ur Specific Vance Urine WBC (Auto) Vancomycin Trough Coronavirus (PCR) 12/03/20 12/03/20 12/03/20 04:35 05:42 11:28 WBC RBC Hgb Hct MCHC RDW Plt Count Lymph % (Auto) [place]key % (Auto) Lymph # (Auto) [place]key # (Auto) Baso # (Auto) Seg Neutrophils % Seg Neuts % (Manual) Lymphocytes % (Manual) Nucleated RBC % Seg Neutrophils # Seg Neutrophils # Man Lymphocytes # (Manual) D-Dimer ABG pH POC ABG pCO2 POC ABG pO2 ABG pO2 ABG HCO3 ABG O2 Saturation ABG Base Excess ABG Hemoglobin ABG Oxyhemoglobin ABG Sodium ABG Potassium ABG Chloride ABG Glucose Oxyhemoglobin Carboxyhemoglobin Sodium Potassium Chloride 97.8 L Carbon Dioxide 43 H* BUN 25 H Creatinine 0.3 L Glucose 214 H POC Glucose 193 H 211 H Hemoglobin A1c Lactic Acid Calcium 7.7 L Magnesium Ferritin Total Bilirubin AST ALT 63 H Alkaline Phosphatase 132 H Lactate Dehydrogenase Total Creatine Kinase C-Reactive Protein Total Protein 5.1 L Albumin 2.4 L Triglycerides Arterial Blood Glucose Arterial Blood Ionized Calcium Ur Specific Vance Urine WBC (Auto) Vancomycin Trough Coronavirus (PCR) 12/03/20 12/03/20 12/04/20 17:45 23:57 00:11 WBC RBC Hgb Hct MCHC RDW Plt Count Lymph % (Auto) [place]key % (Auto) Lymph # (Auto) [place]key # (Auto) Baso # (Auto) Seg Neutrophils % Seg Neuts % (Manual) Lymphocytes % (Manual) Nucleated RBC % Seg Neutrophils # Seg Neutrophils # Man Lymphocytes # (Manual) D-Dimer ABG pH POC ABG pCO2 POC ABG pO2 ABG pO2 ABG HCO3 ABG O2 Saturation ABG Base Excess ABG Hemoglobin ABG Oxyhemoglobin ABG Sodium ABG Potassium ABG Chloride ABG Glucose Oxyhemoglobin Carboxyhemoglobin Sodium Potassium Chloride Carbon Dioxide BUN Creatinine Glucose POC Glucose 231 H 240 H 239 H Hemoglobin A1c Lactic Acid Calcium Magnesium Ferritin Total Bilirubin AST ALT Alkaline Phosphatase Lactate Dehydrogenase Total Creatine Kinase C-Reactive Protein Total Protein Albumin Triglycerides Arterial Blood Glucose Arterial Blood Ionized Calcium Ur Specific Vance Urine WBC (Auto) Vancomycin Trough Coronavirus (PCR) 12/04/20 12/04/20 12/04/20 04:00 05:20 05:34 WBC RBC Hgb Hct MCHC RDW Plt Count Lymph % (Auto) [place]key % (Auto) Lymph # (Auto) [place]key # (Auto) Baso # (Auto) Seg Neutrophils % Seg Neuts % (Manual) Lymphocytes % (Manual) Nucleated RBC % Seg Neutrophils # Seg Neutrophils # Man Lymphocytes # (Manual) D-Dimer ABG pH POC ABG pCO2 84.4 H POC ABG pO2 68.0 L ABG pO2 ABG HCO3 ABG O2 Saturation ABG Base Excess ABG Hemoglobin 11.6 L ABG Oxyhemoglobin ABG Sodium 130.9 L ABG Potassium ABG Chloride 90.0 L ABG Glucose 244 H Oxyhemoglobin Carboxyhemoglobin Sodium Potassium Chloride Carbon Dioxide BUN Creatinine Glucose POC Glucose 241 H 213 H Hemoglobin A1c Lactic Acid Calcium Magnesium Ferritin Total Bilirubin AST ALT Alkaline Phosphatase Lactate Dehydrogenase Total Creatine Kinase C-Reactive Protein Total Protein Albumin Triglycerides Arterial Blood Glucose 244 H Arterial Blood Ionized Calcium 4.4 L Ur Specific Vance Urine WBC (Auto) Vancomycin Trough Coronavirus (PCR) 12/04/20 12/04/20 12/04/20 11:36 16:53 23:32 WBC RBC Hgb Hct MCHC RDW Plt Count Lymph % (Auto) [place]key % (Auto) Lymph # (Auto) [place]key # (Auto) Baso # (Auto) Seg Neutrophils % Seg Neuts % (Manual) Lymphocytes % (Manual) Nucleated RBC % Seg Neutrophils # Seg Neutrophils # Man Lymphocytes # (Manual) D-Dimer ABG pH POC ABG pCO2 POC ABG pO2 ABG pO2 ABG HCO3 ABG O2 Saturation ABG Base Excess ABG Hemoglobin ABG Oxyhemoglobin ABG Sodium ABG Potassium ABG Chloride ABG Glucose Oxyhemoglobin Carboxyhemoglobin Sodium Potassium Chloride Carbon Dioxide BUN Creatinine Glucose POC Glucose 196 H 127 H 230 H Hemoglobin A1c Lactic Acid Calcium Magnesium Ferritin Total Bilirubin AST ALT Alkaline Phosphatase Lactate Dehydrogenase Total Creatine Kinase C-Reactive Protein Total Protein Albumin Triglycerides Arterial Blood Glucose Arterial Blood Ionized Calcium Ur Specific Vance Urine WBC (Auto) Vancomycin Trough Coronavirus (PCR) 12/04/20 12/05/20 12/05/20 Unknown 04:16 05:21 WBC RBC Hgb Hct MCHC RDW Plt Count Lymph % (Auto) [place]key % (Auto) Lymph # (Auto) [place]key # (Auto) Baso # (Auto) Seg Neutrophils % Seg Neuts % (Manual) Lymphocytes % (Manual) Nucleated RBC % Seg Neutrophils # Seg Neutrophils # Man Lymphocytes # (Manual) D-Dimer ABG pH POC ABG pCO2 86.7 H POC ABG pO2 58.0 L ABG pO2 ABG HCO3 ABG O2 Saturation ABG Base Excess ABG Hemoglobin 11.6 L ABG Oxyhemoglobin 89 L ABG Sodium 130.1 L ABG Potassium 4.9 H ABG Chloride 89.0 L ABG Glucose 254 H Oxyhemoglobin Carboxyhemoglobin Sodium 136 L Potassium Chloride 90.0 L Carbon Dioxide 46 H* BUN 24 H Creatinine 0.3 L Glucose 226 H POC Glucose 213 H Hemoglobin A1c Lactic Acid Calcium 7.6 L Magnesium Ferritin Total Bilirubin AST 46 H ALT 78 H Alkaline Phosphatase 172 H Lactate Dehydrogenase Total Creatine Kinase C-Reactive Protein Total Protein 6.0 L Albumin 2.8 L Triglycerides 156 H Arterial Blood Glucose 254 H Arterial Blood Ionized Calcium 4.4 L Ur Specific Vance Urine WBC (Auto) Vancomycin Trough Coronavirus (PCR) 12/05/20 12/05/20 12/05/20 11:22 17:26 23:38 WBC RBC Hgb Hct MCHC RDW Plt Count Lymph % (Auto) [place]key % (Auto) Lymph # (Auto) [place]key # (Auto) Baso # (Auto) Seg Neutrophils % Seg Neuts % (Manual) Lymphocytes % (Manual) Nucleated RBC % Seg Neutrophils # Seg Neutrophils # Man Lymphocytes # (Manual) D-Dimer ABG pH POC ABG pCO2 POC ABG pO2 ABG pO2 ABG HCO3 ABG O2 Saturation ABG Base Excess ABG Hemoglobin ABG Oxyhemoglobin ABG Sodium ABG Potassium ABG Chloride ABG Glucose Oxyhemoglobin Carboxyhemoglobin Sodium Potassium Chloride Carbon Dioxide BUN Creatinine Glucose POC Glucose 212 H 157 H 204 H Hemoglobin A1c Lactic Acid Calcium Magnesium Ferritin Total Bilirubin AST ALT Alkaline Phosphatase Lactate Dehydrogenase Total Creatine Kinase C-Reactive Protein Total Protein Albumin Triglycerides Arterial Blood Glucose Arterial Blood Ionized Calcium Ur Specific Vance Urine WBC (Auto) Vancomycin Trough Coronavirus (PCR) 12/06/20 12/06/20 12/06/20 04:31 04:31 05:12 WBC 17.0 H RBC 3.63 L Hgb 10.8 L D Hct 32.6 L D MCHC RDW Plt Count Lymph % (Auto) [place]key % (Auto) Lymph # (Auto) [place]key # (Auto) Baso # (Auto) Seg Neutrophils % Seg Neuts % (Manual) Lymphocytes % (Manual) Nucleated RBC % Seg Neutrophils # Seg Neutrophils # Man Lymphocytes # (Manual) D-Dimer ABG pH POC ABG pCO2 85.9 H POC ABG pO2 57.6 L ABG pO2 ABG HCO3 ABG O2 Saturation ABG Base Excess ABG Hemoglobin ABG Oxyhemoglobin ABG Sodium 131.2 L ABG Potassium 4.8 H ABG Chloride 86.0 L ABG Glucose 200 H Oxyhemoglobin Carboxyhemoglobin Sodium 134 L Potassium 5.1 H Chloride 88.4 L Carbon Dioxide 47 H* BUN 23 H Creatinine 0.3 L Glucose 206 H POC Glucose Hemoglobin A1c Lactic Acid Calcium 8.3 L Magnesium Ferritin Total Bilirubin AST 48 H ALT 91 H Alkaline Phosphatase 140 H Lactate Dehydrogenase Total Creatine Kinase C-Reactive Protein Total Protein 5.7 L Albumin 2.6 L Triglycerides Arterial Blood Glucose 200 H Arterial Blood Ionized Calcium 4.4 L Ur Specific Vance Urine WBC (Auto) Vancomycin Trough Coronavirus (PCR) 12/06/20 12/06/20 12/06/20 05:24 12:18 16:45 WBC RBC Hgb Hct MCHC RDW Plt Count Lymph % (Auto) [place]key % (Auto) Lymph # (Auto) [place]key # (Auto) Baso # (Auto) Seg Neutrophils % Seg Neuts % (Manual) Lymphocytes % (Manual) Nucleated RBC % Seg Neutrophils # Seg Neutrophils # Man Lymphocytes # (Manual) D-Dimer ABG pH POC ABG pCO2 POC ABG pO2 ABG pO2 ABG HCO3 ABG O2 Saturation ABG Base Excess ABG Hemoglobin ABG Oxyhemoglobin ABG Sodium ABG Potassium ABG Chloride ABG Glucose Oxyhemoglobin Carboxyhemoglobin Sodium Potassium Chloride Carbon Dioxide BUN Creatinine Glucose POC Glucose 186 H 187 H 150 H Hemoglobin A1c Lactic Acid Calcium Magnesium Ferritin Total Bilirubin AST ALT Alkaline Phosphatase Lactate Dehydrogenase Total Creatine Kinase C-Reactive Protein Total Protein Albumin Triglycerides Arterial Blood Glucose Arterial Blood Ionized Calcium Ur Specific Vance Urine WBC (Auto) Vancomycin Trough Coronavirus (PCR) 12/06/20 12/07/20 12/07/20 23:43 05:20 05:21 WBC RBC Hgb Hct MCHC RDW Plt Count Lymph % (Auto) [place]key % (Auto) Lymph # (Auto) [place]key # (Auto) Baso # (Auto) Seg Neutrophils % Seg Neuts % (Manual) Lymphocytes % (Manual) Nucleated RBC % Seg Neutrophils # Seg Neutrophils # Man Lymphocytes # (Manual) D-Dimer ABG pH POC ABG pCO2 POC ABG pO2 ABG pO2 48.4 L ABG HCO3 50.8 H ABG O2 Saturation 86.2 L ABG Base Excess 22.4 H ABG Hemoglobin 11.0 L ABG Oxyhemoglobin ABG Sodium ABG Potassium ABG Chloride ABG Glucose Oxyhemoglobin 84.0 L Carboxyhemoglobin Sodium Potassium Chloride Carbon Dioxide BUN Creatinine Glucose POC Glucose 153 H 107 H Hemoglobin A1c Lactic Acid Calcium Magnesium Ferritin Total Bilirubin AST ALT Alkaline Phosphatase Lactate Dehydrogenase Total Creatine Kinase C-Reactive Protein Total Protein Albumin Triglycerides Arterial Blood Glucose Arterial Blood Ionized Calcium Ur Specific Vance Urine WBC (Auto) Vancomycin Trough Coronavirus (PCR) 12/07/20 12/07/20 12/07/20 13:20 14:28 17:35 WBC RBC Hgb Hct MCHC RDW Plt Count Lymph % (Auto) [place]key % (Auto) Lymph # (Auto) [place]key # (Auto) Baso # (Auto) Seg Neutrophils % Seg Neuts % (Manual) Lymphocytes % (Manual) Nucleated RBC % Seg Neutrophils # Seg Neutrophils # Man Lymphocytes # (Manual) D-Dimer ABG pH POC ABG pCO2 74.1 H POC ABG pO2 68.5 L ABG pO2 ABG HCO3 ABG O2 Saturation ABG Base Excess ABG Hemoglobin 10.7 L ABG Oxyhemoglobin 91.9 L ABG Sodium 132.2 L ABG Potassium 4.7 H ABG Chloride 88.0 L ABG Glucose 138 H Oxyhemoglobin Carboxyhemoglobin Sodium 134 L Potassium Chloride 87.4 L Carbon Dioxide 49 H* BUN Creatinine 0.2 L Glucose 132 H POC Glucose 176 H Hemoglobin A1c Lactic Acid Calcium 7.7 L Magnesium Ferritin Total Bilirubin AST ALT Alkaline Phosphatase Lactate Dehydrogenase Total Creatine Kinase C-Reactive Protein Total Protein Albumin Triglycerides Arterial Blood Glucose 138 H Arterial Blood Ionized Calcium 4.0 L Ur Specific Vance Urine WBC (Auto) Vancomycin Trough Coronavirus (PCR) 12/07/20 12/08/20 12/08/20 23:44 04:12 05:29 WBC RBC Hgb Hct MCHC RDW Plt Count Lymph % (Auto) [place]key % (Auto) Lymph # (Auto) [place]key # (Auto) Baso # (Auto) Seg Neutrophils % Seg Neuts % (Manual) Lymphocytes % (Manual) Nucleated RBC % Seg Neutrophils # Seg Neutrophils # Man Lymphocytes # (Manual) D-Dimer ABG pH POC ABG pCO2 POC ABG pO2 ABG pO2 69.7 L ABG HCO3 50.1 H ABG O2 Saturation ABG Base Excess 21.6 H ABG Hemoglobin 10.9 L ABG Oxyhemoglobin ABG Sodium ABG Potassium ABG Chloride ABG Glucose Oxyhemoglobin 93.2 L Carboxyhemoglobin Sodium Potassium Chloride Carbon Dioxide BUN Creatinine Glucose POC Glucose 143 H 143 H Hemoglobin A1c Lactic Acid Calcium Magnesium Ferritin Total Bilirubin AST ALT Alkaline Phosphatase Lactate Dehydrogenase Total Creatine Kinase C-Reactive Protein Total Protein Albumin Triglycerides Arterial Blood Glucose Arterial Blood Ionized Calcium Ur Specific Vance Urine WBC (Auto) Vancomycin Trough Coronavirus (PCR) 12/08/20 12/08/20 12/09/20 06:10 06:10 04:24 WBC 12.0 H RBC 3.18 L Hgb 9.5 L Hct 28.9 L MCHC RDW Plt Count Lymph % (Auto) [place]key % (Auto) Lymph # (Auto) [place]key # (Auto) Baso # (Auto) Seg Neutrophils % Seg Neuts % (Manual) 95.0 H Lymphocytes % (Manual) 3.0 L Nucleated RBC % Seg Neutrophils # Seg Neutrophils # Man 11.4 H Lymphocytes # (Manual) 0.4 L D-Dimer ABG pH POC ABG pCO2 76.2 H POC ABG pO2 52.8 L ABG pO2 ABG HCO3 ABG O2 Saturation ABG Base Excess ABG Hemoglobin 11.7 L ABG Oxyhemoglobin ABG Sodium 132.0 L ABG Potassium ABG Chloride 87.0 L ABG Glucose 118 H Oxyhemoglobin Carboxyhemoglobin Sodium 133 L Potassium Chloride 86.3 L Carbon Dioxide 53 H* BUN Creatinine 0.2 L Glucose 156 H POC Glucose Hemoglobin A1c Lactic Acid Calcium 7.6 L Magnesium Ferritin Total Bilirubin AST ALT Alkaline Phosphatase Lactate Dehydrogenase Total Creatine Kinase C-Reactive Protein Total Protein Albumin Triglycerides Arterial Blood Glucose 118 H Arterial Blood Ionized Calcium 4.2 L Ur Specific Vance Urine WBC (Auto) Vancomycin Trough Coronavirus (PCR) 12/09/20 12/09/20 12/09/20 05:44 06:40 06:40 WBC 13.5 H RBC 3.28 L Hgb 9.7 L Hct 29.9 L MCHC RDW Plt Count Lymph % (Auto) [place]key % (Auto) Lymph # (Auto) [place]key # (Auto) Baso # (Auto) Seg Neutrophils % Seg Neuts % (Manual) Lymphocytes % (Manual) Nucleated RBC % Seg Neutrophils # Seg Neutrophils # Man Lymphocytes # (Manual) D-Dimer ABG pH POC ABG pCO2 POC ABG pO2 ABG pO2 ABG HCO3 ABG O2 Saturation ABG Base Excess ABG Hemoglobin ABG Oxyhemoglobin ABG Sodium ABG Potassium ABG Chloride ABG Glucose Oxyhemoglobin Carboxyhemoglobin Sodium 135 L Potassium Chloride 89.5 L Carbon Dioxide 52 H* BUN Creatinine 0.3 L Glucose 114 H POC Glucose 117 H Hemoglobin A1c Lactic Acid Calcium 7.6 L Magnesium Ferritin Total Bilirubin AST ALT Alkaline Phosphatase Lactate Dehydrogenase Total Creatine Kinase C-Reactive Protein Total Protein Albumin Triglycerides Arterial Blood Glucose Arterial Blood Ionized Calcium Ur Specific Vance Urine WBC (Auto) Vancomycin Trough Coronavirus (PCR) 12/09/20 12/09/20 12/10/20 16:42 21:11 04:28 WBC RBC Hgb Hct MCHC RDW Plt Count Lymph % (Auto) [place]key % (Auto) Lymph # (Auto) Sharkey # (Auto) Baso # (Auto) Seg Neutrophils % Seg Neuts % (Manual) Lymphocytes % (Manual) Nucleated RBC % Seg Neutrophils # Seg Neutrophils # Man Lymphocytes # (Manual) D-Dimer ABG pH POC ABG pCO2 72.5 H 69.4 H 76.9 H POC ABG pO2 50.4 L 80.6 L 60.2 L ABG pO2 ABG HCO3 ABG O2 Saturation ABG Base Excess ABG Hemoglobin 10.4 L 10.7 L 10 L ABG Oxyhemoglobin 84.3 L 89.7 L ABG Sodium 133.7 L 133.7 L 133.8 L ABG Potassium ABG Chloride 90.0 L 91.0 L 91.0 L ABG Glucose 116 H 96 H 57 L Oxyhemoglobin Carboxyhemoglobin 0.4 L Sodium Potassium Chloride Carbon Dioxide BUN Creatinine Glucose POC Glucose Hemoglobin A1c Lactic Acid Calcium Magnesium Ferritin Total Bilirubin AST ALT Alkaline Phosphatase Lactate Dehydrogenase Total Creatine Kinase C-Reactive Protein Total Protein Albumin Triglycerides Arterial Blood Glucose 116 H 96 H 57 L Arterial Blood Ionized Calcium 4.2 L 4.3 L 4.2 L Ur Specific Vance Urine WBC (Auto) Vancomycin Trough Coronavirus (PCR) 12/10/20 12/10/20 12/10/20 05:09 05:41 11:50 WBC RBC Hgb Hct MCHC RDW Plt Count Lymph % (Auto) [place]key % (Auto) Lymph # (Auto) [place]key # (Auto) Baso # (Auto) Seg Neutrophils % Seg Neuts % (Manual) Lymphocytes % (Manual) Nucleated RBC % Seg Neutrophils # Seg Neutrophils # Man Lymphocytes # (Manual) D-Dimer ABG pH POC ABG pCO2 POC ABG pO2 ABG pO2 ABG HCO3 ABG O2 Saturation ABG Base Excess ABG Hemoglobin ABG Oxyhemoglobin ABG Sodium ABG Potassium ABG Chloride ABG Glucose Oxyhemoglobin Carboxyhemoglobin Sodium Potassium Chloride Carbon Dioxide BUN Creatinine Glucose POC Glucose 41 L 138 H 106 H Hemoglobin A1c Lactic Acid Calcium Magnesium Ferritin Total Bilirubin AST ALT Alkaline Phosphatase Lactate Dehydrogenase Total Creatine Kinase C-Reactive Protein Total Protein Albumin Triglycerides Arterial Blood Glucose Arterial Blood Ionized Calcium Ur Specific Vance Urine WBC (Auto) Vancomycin Trough Coronavirus (PCR) 12/10/20 12/10/20 12/11/20 17:34 23:25 04:06 WBC RBC Hgb Hct MCHC RDW Plt Count Lymph % (Auto) [place]key % (Auto) Lymph # (Auto) Sharkey # (Auto) Baso # (Auto) Seg Neutrophils % Seg Neuts % (Manual) Lymphocytes % (Manual) Nucleated RBC % Seg Neutrophils # Seg Neutrophils # Man Lymphocytes # (Manual) D-Dimer ABG pH POC ABG pCO2 71.0 H POC ABG pO2 56.8 L ABG pO2 ABG HCO3 ABG O2 Saturation ABG Base Excess ABG Hemoglobin 10.1 L ABG Oxyhemoglobin 88.5 L ABG Sodium 132.3 L ABG Potassium ABG Chloride 91.0 L ABG Glucose 168 H Oxyhemoglobin Carboxyhemoglobin Sodium Potassium Chloride Carbon Dioxide BUN Creatinine Glucose POC Glucose 121 H 167 H Hemoglobin A1c Lactic Acid Calcium Magnesium Ferritin Total Bilirubin AST ALT Alkaline Phosphatase Lactate Dehydrogenase Total Creatine Kinase C-Reactive Protein Total Protein Albumin Triglycerides Arterial Blood Glucose 168 H Arterial Blood Ionized Calcium 4.1 L Ur Specific Vance Urine WBC (Auto) Vancomycin Trough Coronavirus (PCR) 12/11/20 12/11/20 12/11/20 05:21 11:44 15:40 WBC RBC Hgb Hct MCHC RDW Plt Count Lymph % (Auto) [place]key % (Auto) Lymph # (Auto) Sharkey # (Auto) Baso # (Auto) Seg Neutrophils % Seg Neuts % (Manual) Lymphocytes % (Manual) Nucleated RBC % Seg Neutrophils # Seg Neutrophils # Man Lymphocytes # (Manual) D-Dimer ABG pH 7.454 H POC ABG pCO2 58.6 H POC ABG pO2 50.7 L ABG pO2 ABG HCO3 ABG O2 Saturation ABG Base Excess ABG Hemoglobin 10.1 L ABG Oxyhemoglobin 86.2 L ABG Sodium 131.2 L ABG Potassium ABG Chloride 92.0 L ABG Glucose 197 H Oxyhemoglobin Carboxyhemoglobin Sodium Potassium Chloride Carbon Dioxide BUN Creatinine Glucose POC Glucose 149 H 202 H Hemoglobin A1c Lactic Acid Calcium Magnesium Ferritin Total Bilirubin AST ALT Alkaline Phosphatase Lactate Dehydrogenase Total Creatine Kinase C-Reactive Protein Total Protein Albumin Triglycerides Arterial Blood Glucose 197 H Arterial Blood Ionized Calcium 4.2 L Ur Specific Vance Urine WBC (Auto) Vancomycin Trough Coronavirus (PCR) 12/11/20 12/11/20 12/12/20 17:09 23:16 05:09 WBC RBC Hgb Hct MCHC RDW Plt Count Lymph % (Auto) Sharkey % (Auto) Lymph # (Auto) Sharkey # (Auto) Baso # (Auto) Seg Neutrophils % Seg Neuts % (Manual) Lymphocytes % (Manual) Nucleated RBC % Seg Neutrophils # Seg Neutrophils # Man Lymphocytes # (Manual) D-Dimer ABG pH POC ABG pCO2 63.1 H POC ABG pO2 62.6 L ABG pO2 ABG HCO3 ABG O2 Saturation ABG Base Excess ABG Hemoglobin 10.3 L ABG Oxyhemoglobin ABG Sodium 130.3 L ABG Potassium 4.6 H ABG Chloride 92.0 L ABG Glucose 215 H Oxyhemoglobin Carboxyhemoglobin Sodium Potassium Chloride Carbon Dioxide BUN Creatinine Glucose POC Glucose 181 H 192 H Hemoglobin A1c Lactic Acid Calcium Magnesium Ferritin Total Bilirubin AST ALT Alkaline Phosphatase Lactate Dehydrogenase Total Creatine Kinase C-Reactive Protein Total Protein Albumin Triglycerides Arterial Blood Glucose 215 H Arterial Blood Ionized Calcium 4.4 L Ur Specific Vance Urine WBC (Auto) Vancomycin Trough Coronavirus (PCR) 12/12/20 12/12/20 12/12/20 05:16 05:47 11:41 WBC RBC Hgb Hct MCHC RDW Plt Count Lymph % (Auto) [place]key % (Auto) Lymph # (Auto) [place]key # (Auto) Baso # (Auto) Seg Neutrophils % Seg Neuts % (Manual) Lymphocytes % (Manual) Nucleated RBC % Seg Neutrophils # Seg Neutrophils # Man Lymphocytes # (Manual) D-Dimer ABG pH POC ABG pCO2 POC ABG pO2 ABG pO2 ABG HCO3 ABG O2 Saturation ABG Base Excess ABG Hemoglobin ABG Oxyhemoglobin ABG Sodium ABG Potassium ABG Chloride ABG Glucose Oxyhemoglobin Carboxyhemoglobin Sodium Potassium Chloride Carbon Dioxide BUN Creatinine Glucose POC Glucose 208 H 218 H Hemoglobin A1c Lactic Acid Calcium Magnesium Ferritin Total Bilirubin AST ALT Alkaline Phosphatase Lactate Dehydrogenase Total Creatine Kinase C-Reactive Protein Total Protein Albumin Triglycerides 150 H Arterial Blood Glucose Arterial Blood Ionized Calcium Ur Specific Vance Urine WBC (Auto) Vancomycin Trough Coronavirus (PCR) 12/12/20 12/12/20 12/13/20 17:05 23:18 03:36 WBC RBC Hgb Hct MCHC RDW Plt Count Lymph % (Auto) [place]key % (Auto) Lymph # (Auto) [place]key # (Auto) Baso # (Auto) Seg Neutrophils % Seg Neuts % (Manual) Lymphocytes % (Manual) Nucleated RBC % Seg Neutrophils # Seg Neutrophils # Man Lymphocytes # (Manual) D-Dimer ABG pH POC ABG pCO2 61.5 H POC ABG pO2 77.6 L ABG pO2 ABG HCO3 ABG O2 Saturation ABG Base Excess ABG Hemoglobin 10.2 L ABG Oxyhemoglobin ABG Sodium 127.5 L ABG Potassium ABG Chloride 91.0 L ABG Glucose 232 H Oxyhemoglobin Carboxyhemoglobin Sodium Potassium Chloride Carbon Dioxide BUN Creatinine Glucose POC Glucose 187 H 176 H Hemoglobin A1c Lactic Acid Calcium Magnesium Ferritin Total Bilirubin AST ALT Alkaline Phosphatase Lactate Dehydrogenase Total Creatine Kinase C-Reactive Protein Total Protein Albumin Triglycerides Arterial Blood Glucose 232 H Arterial Blood Ionized Calcium 4.2 L Ur Specific Vance Urine WBC (Auto) Vancomycin Trough Coronavirus (PCR) 12/13/20 12/13/20 12/13/20 05:13 10:00 11:30 WBC RBC 3.50 L Hgb 10.5 L Hct 31.9 L MCHC RDW Plt Count Lymph % (Auto) [place]key % (Auto) Lymph # (Auto) [place]key # (Auto) Baso # (Auto) Seg Neutrophils % Seg Neuts % (Manual) 96.0 H Lymphocytes % (Manual) Nucleated RBC % Seg Neutrophils # Seg Neutrophils # Man 9.2 H Lymphocytes # (Manual) 0.0 L D-Dimer ABG pH POC ABG pCO2 POC ABG pO2 ABG pO2 ABG HCO3 ABG O2 Saturation ABG Base Excess ABG Hemoglobin ABG Oxyhemoglobin ABG Sodium ABG Potassium ABG Chloride ABG Glucose Oxyhemoglobin Carboxyhemoglobin Sodium Potassium Chloride Carbon Dioxide BUN Creatinine Glucose POC Glucose 204 H Hemoglobin A1c Lactic Acid Calcium Magnesium Ferritin Total Bilirubin AST ALT Alkaline Phosphatase Lactate Dehydrogenase Total Creatine Kinase C-Reactive Protein Total Protein Albumin Triglycerides Arterial Blood Glucose Arterial Blood Ionized Calcium Ur Specific Vance Urine WBC (Auto) Vancomycin Trough Coronavirus (PCR) Positive A 12/13/20 12/13/20 12/13/20 11:30 12:01 18:04 WBC RBC Hgb Hct MCHC RDW Plt Count Lymph % (Auto) [place] % (Auto) Lymph # (Auto) [place] # (Auto) Baso # (Auto) Seg Neutrophils % Seg Neuts % (Manual) Lymphocytes % (Manual) Nucleated RBC % Seg Neutrophils # Seg Neutrophils # Man Lymphocytes # (Manual) D-Dimer ABG pH POC ABG pCO2 POC ABG pO2 ABG pO2 ABG HCO3 ABG O2 Saturation ABG Base Excess ABG Hemoglobin ABG Oxyhemoglobin ABG Sodium ABG Potassium ABG Chloride ABG Glucose Oxyhemoglobin Carboxyhemoglobin Sodium 132 L Potassium Chloride 90.1 L Carbon Dioxide 41 H* D BUN Creatinine 0.2 L Glucose 249 H POC Glucose 224 H 172 H Hemoglobin A1c Lactic Acid Calcium 7.4 L Magnesium Ferritin Total Bilirubin AST ALT 61 H Alkaline Phosphatase Lactate Dehydrogenase Total Creatine Kinase C-Reactive Protein Total Protein 5.7 L Albumin 2.3 L Triglycerides Arterial Blood Glucose Arterial Blood Ionized Calcium Ur Specific Vance Urine WBC (Auto) Vancomycin Trough Coronavirus (PCR) 12/13/20 12/14/20 12/14/20 23:37 04:05 04:35 WBC RBC 3.37 L Hgb 10.1 L Hct 30.7 L MCHC RDW 15.4 H Plt Count Lymph % (Auto) [place]key % (Auto) Lymph # (Auto) [place] # (Auto) Baso # (Auto) Seg Neutrophils % Seg Neuts % (Manual) 93.0 H Lymphocytes % (Manual) 3.0 L Nucleated RBC % Seg Neutrophils # Seg Neutrophils # Man 7.8 H Lymphocytes # (Manual) 0.3 L D-Dimer ABG pH POC ABG pCO2 72.2 H POC ABG pO2 61.5 L ABG pO2 ABG HCO3 ABG O2 Saturation ABG Base Excess ABG Hemoglobin ABG Oxyhemoglobin 89.9 L ABG Sodium 131.4 L ABG Potassium ABG Chloride 91.0 L ABG Glucose 205 H Oxyhemoglobin Carboxyhemoglobin Sodium Potassium Chloride Carbon Dioxide BUN Creatinine Glucose POC Glucose 200 H Hemoglobin A1c Lactic Acid Calcium Magnesium Ferritin Total Bilirubin AST ALT Alkaline Phosphatase Lactate Dehydrogenase Total Creatine Kinase C-Reactive Protein Total Protein Albumin Triglycerides Arterial Blood Glucose 205 H Arterial Blood Ionized Calcium 4.3 L Ur Specific Vance Urine WBC (Auto) Vancomycin Trough Coronavirus (PCR) 12/14/20 12/14/20 12/14/20 04:35 05:12 11:31 WBC RBC Hgb Hct MCHC RDW Plt Count Lymph % (Auto) [place]key % (Auto) Lymph # (Auto) [place] # (Auto) Baso # (Auto) Seg Neutrophils % Seg Neuts % (Manual) Lymphocytes % (Manual) Nucleated RBC % Seg Neutrophils # Seg Neutrophils # Man Lymphocytes # (Manual) D-Dimer ABG pH POC ABG pCO2 POC ABG pO2 ABG pO2 ABG HCO3 ABG O2 Saturation ABG Base Excess ABG Hemoglobin ABG Oxyhemoglobin ABG Sodium ABG Potassium ABG Chloride ABG Glucose Oxyhemoglobin Carboxyhemoglobin Sodium 135 L Potassium Chloride 92.5 L Carbon Dioxide 38 H BUN Creatinine 0.2 L Glucose 184 H POC Glucose 176 H 212 H Hemoglobin A1c Lactic Acid Calcium 7.7 L Magnesium Ferritin Total Bilirubin AST ALT Alkaline Phosphatase Lactate Dehydrogenase Total Creatine Kinase C-Reactive Protein Total Protein Albumin Triglycerides Arterial Blood Glucose Arterial Blood Ionized Calcium Ur Specific Vance Urine WBC (Auto) Vancomycin Trough Coronavirus (PCR) 12/14/20 12/14/20 12/15/20 17:30 23:30 03:19 WBC RBC Hgb Hct MCHC RDW Plt Count Lymph % (Auto) [place] % (Auto) Lymph # (Auto) [place] # (Auto) Baso # (Auto) Seg Neutrophils % Seg Neuts % (Manual) Lymphocytes % (Manual) Nucleated RBC % Seg Neutrophils # Seg Neutrophils # Man Lymphocytes # (Manual) D-Dimer ABG pH POC ABG pCO2 62.0 H POC ABG pO2 66.0 L ABG pO2 ABG HCO3 ABG O2 Saturation ABG Base Excess ABG Hemoglobin 10.3 L ABG Oxyhemoglobin ABG Sodium 130.5 L ABG Potassium ABG Chloride 91.0 L ABG Glucose 166 H Oxyhemoglobin Carboxyhemoglobin Sodium Potassium Chloride Carbon Dioxide BUN Creatinine Glucose POC Glucose 222 H 176 H Hemoglobin A1c Lactic Acid Calcium Magnesium Ferritin Total Bilirubin AST ALT Alkaline Phosphatase Lactate Dehydrogenase Total Creatine Kinase C-Reactive Protein Total Protein Albumin Triglycerides Arterial Blood Glucose 166 H Arterial Blood Ionized Calcium 4.4 L Ur Specific Vance Urine WBC (Auto) Vancomycin Trough Coronavirus (PCR) 12/15/20 12/15/20 12/15/20 05:24 11:39 17:30 WBC RBC Hgb Hct MCHC RDW Plt Count Lymph % (Auto) [place] % (Auto) Lymph # (Auto) [place] # (Auto) Baso # (Auto) Seg Neutrophils % Seg Neuts % (Manual) Lymphocytes % (Manual) Nucleated RBC % Seg Neutrophils # Seg Neutrophils # Man Lymphocytes # (Manual) D-Dimer ABG pH POC ABG pCO2 POC ABG pO2 ABG pO2 ABG HCO3 ABG O2 Saturation ABG Base Excess ABG Hemoglobin ABG Oxyhemoglobin ABG Sodium ABG Potassium ABG Chloride ABG Glucose Oxyhemoglobin Carboxyhemoglobin Sodium Potassium Chloride Carbon Dioxide BUN Creatinine Glucose POC Glucose 160 H 140 H 246 H Hemoglobin A1c Lactic Acid Calcium Magnesium Ferritin Total Bilirubin AST ALT Alkaline Phosphatase Lactate Dehydrogenase Total Creatine Kinase C-Reactive Protein Total Protein Albumin Triglycerides Arterial Blood Glucose Arterial Blood Ionized Calcium Ur Specific Vance Urine WBC (Auto) Vancomycin Trough Coronavirus (PCR) 12/15/20 12/16/20 12/16/20 23:42 03:54 04:46 WBC RBC 3.48 L Hgb 10.6 L Hct 31.5 L MCHC RDW 15.8 H Plt Count Lymph % (Auto) [place]key % (Auto) Lymph # (Auto) [place] # (Auto) Baso # (Auto) Seg Neutrophils % Seg Neuts % (Manual) Lymphocytes % (Manual) Nucleated RBC % Seg Neutrophils # Seg Neutrophils # Man Lymphocytes # (Manual) D-Dimer ABG pH POC ABG pCO2 63.6 H POC ABG pO2 55.0 L ABG pO2 ABG HCO3 ABG O2 Saturation ABG Base Excess ABG Hemoglobin 11.1 L ABG Oxyhemoglobin 87.3 L ABG Sodium 130.7 L ABG Potassium ABG Chloride 89.0 L ABG Glucose 211 H Oxyhemoglobin Carboxyhemoglobin Sodium Potassium Chloride Carbon Dioxide BUN Creatinine Glucose POC Glucose 139 H Hemoglobin A1c Lactic Acid Calcium Magnesium Ferritin Total Bilirubin AST ALT Alkaline Phosphatase Lactate Dehydrogenase Total Creatine Kinase C-Reactive Protein Total Protein Albumin Triglycerides Arterial Blood Glucose 211 H Arterial Blood Ionized Calcium 4.3 L Ur Specific Vance Urine WBC (Auto) Vancomycin Trough Coronavirus (PCR) 12/16/20 12/16/20 12/16/20 04:46 05:34 11:40 WBC RBC Hgb Hct MCHC RDW Plt Count Lymph % (Auto) [place] % (Auto) Lymph # (Auto) [place] # (Auto) Baso # (Auto) Seg Neutrophils % Seg Neuts % (Manual) Lymphocytes % (Manual) Nucleated RBC % Seg Neutrophils # Seg Neutrophils # Man Lymphocytes # (Manual) D-Dimer ABG pH POC ABG pCO2 POC ABG pO2 ABG pO2 ABG HCO3 ABG O2 Saturation ABG Base Excess ABG Hemoglobin ABG Oxyhemoglobin ABG Sodium ABG Potassium ABG Chloride ABG Glucose Oxyhemoglobin Carboxyhemoglobin Sodium 134 L Potassium Chloride 89.7 L Carbon Dioxide 38 H BUN Creatinine < 0.2 L Glucose 203 H POC Glucose 155 H 239 H Hemoglobin A1c Lactic Acid Calcium 7.5 L Magnesium Ferritin Total Bilirubin AST ALT Alkaline Phosphatase Lactate Dehydrogenase Total Creatine Kinase C-Reactive Protein Total Protein Albumin Triglycerides Arterial Blood Glucose Arterial Blood Ionized Calcium Ur Specific Vance Urine WBC (Auto) Vancomycin Trough Coronavirus (PCR) 12/16/20 12/16/20 12/17/20 17:42 23:45 03:59 WBC RBC Hgb Hct MCHC RDW Plt Count Lymph % (Auto) [place] % (Auto) Lymph # (Auto) [place] # (Auto) Baso # (Auto) Seg Neutrophils % Seg Neuts % (Manual) Lymphocytes % (Manual) Nucleated RBC % Seg Neutrophils # Seg Neutrophils # Man Lymphocytes # (Manual) D-Dimer ABG pH POC ABG pCO2 71.9 H POC ABG pO2 57.5 L ABG pO2 ABG HCO3 ABG O2 Saturation ABG Base Excess ABG Hemoglobin 10.8 L ABG Oxyhemoglobin 87.7 L ABG Sodium 131.5 L ABG Potassium ABG Chloride 90.0 L ABG Glucose 199 H Oxyhemoglobin Carboxyhemoglobin Sodium Potassium Chloride Carbon Dioxide BUN Creatinine Glucose POC Glucose 228 H 187 H Hemoglobin A1c Lactic Acid Calcium Magnesium Ferritin Total Bilirubin AST ALT Alkaline Phosphatase Lactate Dehydrogenase Total Creatine Kinase C-Reactive Protein Total Protein Albumin Triglycerides Arterial Blood Glucose 199 H Arterial Blood Ionized Calcium 4.4 L Ur Specific Vance Urine WBC (Auto) Vancomycin Trough Coronavirus (PCR) 12/17/20 12/17/20 12/17/20 05:35 11:55 12:40 WBC RBC Hgb Hct MCHC RDW Plt Count Lymph % (Auto) [place] % (Auto) Lymph # (Auto) [place] # (Auto) Baso # (Auto) Seg Neutrophils % Seg Neuts % (Manual) Lymphocytes % (Manual) Nucleated RBC % Seg Neutrophils # Seg Neutrophils # Man Lymphocytes # (Manual) D-Dimer ABG pH POC ABG pCO2 POC ABG pO2 ABG pO2 ABG HCO3 ABG O2 Saturation ABG Base Excess ABG Hemoglobin ABG Oxyhemoglobin ABG Sodium ABG Potassium ABG Chloride ABG Glucose Oxyhemoglobin Carboxyhemoglobin Sodium Potassium Chloride 95.2 L Carbon Dioxide 41 H* BUN Creatinine 0.2 L Glucose 138 H POC Glucose 159 H 181 H Hemoglobin A1c Lactic Acid Calcium 7.3 L Magnesium Ferritin Total Bilirubin AST ALT Alkaline Phosphatase Lactate Dehydrogenase Total Creatine Kinase C-Reactive Protein Total Protein Albumin Triglycerides Arterial Blood Glucose Arterial Blood Ionized Calcium Ur Specific Vance Urine WBC (Auto) Vancomycin Trough Coronavirus (PCR) 12/17/20 12/17/20 12/17/20 17:25 17:25 17:51 WBC RBC Hgb Hct MCHC RDW Plt Count Lymph % (Auto) [place] % (Auto) Lymph # (Auto) [place] # (Auto) Baso # (Auto) Seg Neutrophils % Seg Neuts % (Manual) Lymphocytes % (Manual) Nucleated RBC % Seg Neutrophils # Seg Neutrophils # Man Lymphocytes # (Manual) D-Dimer ABG pH POC ABG pCO2 POC ABG pO2 ABG pO2 ABG HCO3 ABG O2 Saturation ABG Base Excess ABG Hemoglobin ABG Oxyhemoglobin ABG Sodium ABG Potassium ABG Chloride ABG Glucose Oxyhemoglobin Carboxyhemoglobin Sodium 134 L Potassium Chloride 89.6 L Carbon Dioxide 44 H* BUN Creatinine 0.2 L Glucose 280 H POC Glucose 260 H Hemoglobin A1c Lactic Acid Calcium 8.0 L Magnesium 1.60 L Ferritin Total Bilirubin AST ALT Alkaline Phosphatase Lactate Dehydrogenase Total Creatine Kinase 47 L C-Reactive Protein Total Protein 6.2 L Albumin 2.1 L Triglycerides Arterial Blood Glucose Arterial Blood Ionized Calcium Ur Specific Vance Urine WBC (Auto) Vancomycin Trough Coronavirus (PCR) 12/18/20 12/18/20 12/18/20 00:12 03:56 04:32 WBC RBC 2.88 L Hgb 8.6 L Hct 26.0 L MCHC RDW 15.6 H Plt Count Lymph % (Auto) [place]key % (Auto) Lymph # (Auto) [place] # (Auto) Baso # (Auto) Seg Neutrophils % Seg Neuts % (Manual) Lymphocytes % (Manual) Nucleated RBC % Seg Neutrophils # Seg Neutrophils # Man Lymphocytes # (Manual) D-Dimer ABG pH POC ABG pCO2 78.0 H POC ABG pO2 52.3 L ABG pO2 ABG HCO3 ABG O2 Saturation ABG Base Excess ABG Hemoglobin 11.7 L ABG Oxyhemoglobin 84.9 L ABG Sodium 131.6 L ABG Potassium ABG Chloride 89.0 L ABG Glucose 191 H Oxyhemoglobin Carboxyhemoglobin Sodium Potassium Chloride Carbon Dioxide BUN Creatinine Glucose POC Glucose 197 H Hemoglobin A1c Lactic Acid Calcium Magnesium Ferritin Total Bilirubin AST ALT Alkaline Phosphatase Lactate Dehydrogenase Total Creatine Kinase C-Reactive Protein Total Protein Albumin Triglycerides Arterial Blood Glucose 191 H Arterial Blood Ionized Calcium 4.4 L Ur Specific Vance Urine WBC (Auto) Vancomycin Trough Coronavirus (PCR) 12/18/20 12/18/20 12/18/20 04:32 05:19 08:27 WBC RBC Hgb Hct MCHC RDW Plt Count Lymph % (Auto) [place] % (Auto) Lymph # (Auto) [place]key # (Auto) Baso # (Auto) Seg Neutrophils % Seg Neuts % (Manual) Lymphocytes % (Manual) Nucleated RBC % Seg Neutrophils # Seg Neutrophils # Man Lymphocytes # (Manual) D-Dimer ABG pH POC ABG pCO2 POC ABG pO2 ABG pO2 ABG HCO3 ABG O2 Saturation ABG Base Excess ABG Hemoglobin ABG Oxyhemoglobin ABG Sodium ABG Potassium ABG Chloride ABG Glucose Oxyhemoglobin Carboxyhemoglobin Sodium 134 L 131 L Potassium Chloride 89.5 L 89.0 L Carbon Dioxide 43 H* 41 H* BUN Creatinine < 0.2 L < 0.2 L Glucose 182 H 176 H POC Glucose 165 H Hemoglobin A1c Lactic Acid Calcium 8.1 L 7.5 L Magnesium Ferritin Total Bilirubin AST ALT Alkaline Phosphatase Lactate Dehydrogenase Total Creatine Kinase C-Reactive Protein Total Protein Albumin Triglycerides Arterial Blood Glucose Arterial Blood Ionized Calcium Ur Specific Vance Urine WBC (Auto) Vancomycin Trough Coronavirus (PCR) 12/18/20 12/18/20 12/18/20 11:37 17:26 23:19 WBC RBC Hgb Hct MCHC RDW Plt Count Lymph % (Auto) [place] % (Auto) Lymph # (Auto) [place]key # (Auto) Baso # (Auto) Seg Neutrophils % Seg Neuts % (Manual) Lymphocytes % (Manual) Nucleated RBC % Seg Neutrophils # Seg Neutrophils # Man Lymphocytes # (Manual) D-Dimer ABG pH POC ABG pCO2 POC ABG pO2 ABG pO2 ABG HCO3 ABG O2 Saturation ABG Base Excess ABG Hemoglobin ABG Oxyhemoglobin ABG Sodium ABG Potassium ABG Chloride ABG Glucose Oxyhemoglobin Carboxyhemoglobin Sodium Potassium Chloride Carbon Dioxide BUN Creatinine Glucose POC Glucose 174 H 243 H 212 H Hemoglobin A1c Lactic Acid Calcium Magnesium Ferritin Total Bilirubin AST ALT Alkaline Phosphatase Lactate Dehydrogenase Total Creatine Kinase C-Reactive Protein Total Protein Albumin Triglycerides Arterial Blood Glucose Arterial Blood Ionized Calcium Ur Specific Vance Urine WBC (Auto) Vancomycin Trough Coronavirus (PCR) 12/19/20 12/19/20 12/19/20 03:41 05:26 11:56 WBC RBC Hgb Hct MCHC RDW Plt Count Lymph % (Auto) [place] % (Auto) Lymph # (Auto) [place]key # (Auto) Baso # (Auto) Seg Neutrophils % Seg Neuts % (Manual) Lymphocytes % (Manual) Nucleated RBC % Seg Neutrophils # Seg Neutrophils # Man Lymphocytes # (Manual) D-Dimer ABG pH POC ABG pCO2 75.4 H POC ABG pO2 50.7 L ABG pO2 ABG HCO3 ABG O2 Saturation ABG Base Excess ABG Hemoglobin 10.4 L ABG Oxyhemoglobin 84.2 L ABG Sodium 131.1 L ABG Potassium ABG Chloride 89.0 L ABG Glucose 194 H Oxyhemoglobin Carboxyhemoglobin 1.6 H Sodium Potassium Chloride Carbon Dioxide BUN Creatinine Glucose POC Glucose 166 H 173 H Hemoglobin A1c Lactic Acid Calcium Magnesium Ferritin Total Bilirubin AST ALT Alkaline Phosphatase Lactate Dehydrogenase Total Creatine Kinase C-Reactive Protein Total Protein Albumin Triglycerides Arterial Blood Glucose 194 H Arterial Blood Ionized Calcium 4.3 L Ur Specific Vance Urine WBC (Auto) Vancomycin Trough Coronavirus (PCR) 12/19/20 12/19/20 12/19/20 18:17 23:39 Unknown WBC RBC Hgb Hct MCHC RDW Plt Count Lymph % (Auto) [place]key % (Auto) Lymph # (Auto) [place]key # (Auto) Baso # (Auto) Seg Neutrophils % Seg Neuts % (Manual) Lymphocytes % (Manual) Nucleated RBC % Seg Neutrophils # Seg Neutrophils # Man Lymphocytes # (Manual) D-Dimer ABG pH POC ABG pCO2 POC ABG pO2 ABG pO2 ABG HCO3 ABG O2 Saturation ABG Base Excess ABG Hemoglobin ABG Oxyhemoglobin ABG Sodium ABG Potassium ABG Chloride ABG Glucose Oxyhemoglobin Carboxyhemoglobin Sodium 133 L Potassium Chloride 89.9 L Carbon Dioxide 39 H BUN Creatinine 0.2 L Glucose 197 H POC Glucose 212 H 133 H Hemoglobin A1c Lactic Acid Calcium 7.6 L Magnesium Ferritin Total Bilirubin AST ALT Alkaline Phosphatase Lactate Dehydrogenase Total Creatine Kinase C-Reactive Protein Total Protein Albumin Triglycerides Arterial Blood Glucose Arterial Blood Ionized Calcium Ur Specific Vance Urine WBC (Auto) Vancomycin Trough Coronavirus (PCR) 12/20/20 12/20/20 12/20/20 03:26 04:00 04:00 WBC RBC 3.21 L Hgb 9.6 L Hct 29.2 L MCHC RDW 15.8 H Plt Count Lymph % (Auto) [place]key % (Auto) Lymph # (Auto) [place]key # (Auto) Baso # (Auto) Seg Neutrophils % Seg Neuts % (Manual) Lymphocytes % (Manual) Nucleated RBC % Seg Neutrophils # Seg Neutrophils # Man Lymphocytes # (Manual) D-Dimer ABG pH POC ABG pCO2 74.2 H POC ABG pO2 51.3 L ABG pO2 ABG HCO3 ABG O2 Saturation ABG Base Excess ABG Hemoglobin 10.0 L ABG Oxyhemoglobin ABG Sodium 128.9 L ABG Potassium ABG Chloride 87.0 L ABG Glucose 173 H Oxyhemoglobin Carboxyhemoglobin Sodium 132 L Potassium Chloride 86.0 L Carbon Dioxide 43 H* BUN Creatinine 0.2 L Glucose 193 H POC Glucose Hemoglobin A1c Lactic Acid Calcium 7.6 L Magnesium Ferritin Total Bilirubin AST ALT Alkaline Phosphatase Lactate Dehydrogenase Total Creatine Kinase C-Reactive Protein Total Protein Albumin Triglycerides Arterial Blood Glucose 173 H Arterial Blood Ionized Calcium 4.1 L Ur Specific Vance Urine WBC (Auto) Vancomycin Trough Coronavirus (PCR) 12/20/20 12/20/20 12/20/20 05:05 11:47 18:18 WBC RBC Hgb Hct MCHC RDW Plt Count Lymph % (Auto) [place]key % (Auto) Lymph # (Auto) [place]key # (Auto) Baso # (Auto) Seg Neutrophils % Seg Neuts % (Manual) Lymphocytes % (Manual) Nucleated RBC % Seg Neutrophils # Seg Neutrophils # Man Lymphocytes # (Manual) D-Dimer ABG pH POC ABG pCO2 POC ABG pO2 ABG pO2 ABG HCO3 ABG O2 Saturation ABG Base Excess ABG Hemoglobin ABG Oxyhemoglobin ABG Sodium ABG Potassium ABG Chloride ABG Glucose Oxyhemoglobin Carboxyhemoglobin Sodium Potassium Chloride Carbon Dioxide BUN Creatinine Glucose POC Glucose 171 H 238 H 205 H Hemoglobin A1c Lactic Acid Calcium Magnesium Ferritin Total Bilirubin AST ALT Alkaline Phosphatase Lactate Dehydrogenase Total Creatine Kinase C-Reactive Protein Total Protein Albumin Triglycerides Arterial Blood Glucose Arterial Blood Ionized Calcium Ur Specific Vance Urine WBC (Auto) Vancomycin Trough Coronavirus (PCR) 12/20/20 12/21/20 12/21/20 23:41 03:30 05:37 WBC RBC Hgb Hct MCHC RDW Plt Count Lymph % (Auto) [place]key % (Auto) Lymph # (Auto) [place]key # (Auto) Baso # (Auto) Seg Neutrophils % Seg Neuts % (Manual) Lymphocytes % (Manual) Nucleated RBC % Seg Neutrophils # Seg Neutrophils # Man Lymphocytes # (Manual) D-Dimer ABG pH POC ABG pCO2 73.4 H POC ABG pO2 63.0 L ABG pO2 ABG HCO3 ABG O2 Saturation ABG Base Excess ABG Hemoglobin 10.1 L ABG Oxyhemoglobin ABG Sodium 130.5 L ABG Potassium ABG Chloride 89.0 L ABG Glucose 171 H Oxyhemoglobin Carboxyhemoglobin Sodium Potassium Chloride Carbon Dioxide BUN Creatinine Glucose POC Glucose 167 H 152 H Hemoglobin A1c Lactic Acid Calcium Magnesium Ferritin Total Bilirubin AST ALT Alkaline Phosphatase Lactate Dehydrogenase Total Creatine Kinase C-Reactive Protein Total Protein Albumin Triglycerides Arterial Blood Glucose 171 H Arterial Blood Ionized Calcium 4.2 L Ur Specific Vance Urine WBC (Auto) Vancomycin Trough Coronavirus (PCR) 12/21/20 12/21/20 12/21/20 09:57 12:54 18:00 WBC RBC Hgb Hct MCHC RDW Plt Count Lymph % (Auto) [place]key % (Auto) Lymph # (Auto) [place]key # (Auto) Baso # (Auto) Seg Neutrophils % Seg Neuts % (Manual) Lymphocytes % (Manual) Nucleated RBC % Seg Neutrophils # Seg Neutrophils # Man Lymphocytes # (Manual) D-Dimer ABG pH POC ABG pCO2 POC ABG pO2 ABG pO2 ABG HCO3 ABG O2 Saturation ABG Base Excess ABG Hemoglobin ABG Oxyhemoglobin ABG Sodium ABG Potassium ABG Chloride ABG Glucose Oxyhemoglobin Carboxyhemoglobin Sodium 132 L Potassium Chloride 87.7 L Carbon Dioxide 42 H* BUN Creatinine 0.2 L Glucose 207 H POC Glucose 199 H 217 H Hemoglobin A1c Lactic Acid Calcium 7.7 L Magnesium Ferritin Total Bilirubin AST ALT Alkaline Phosphatase Lactate Dehydrogenase Total Creatine Kinase C-Reactive Protein Total Protein Albumin Triglycerides Arterial Blood Glucose Arterial Blood Ionized Calcium Ur Specific Vance Urine WBC (Auto) Vancomycin Trough Coronavirus (PCR) 12/21/20 12/22/20 12/22/20 Unknown 00:02 04:08 WBC RBC Hgb Hct MCHC RDW Plt Count Lymph % (Auto) [place]key % (Auto) Lymph # (Auto) [place]key # (Auto) Baso # (Auto) Seg Neutrophils % Seg Neuts % (Manual) Lymphocytes % (Manual) Nucleated RBC % Seg Neutrophils # Seg Neutrophils # Man Lymphocytes # (Manual) D-Dimer ABG pH POC ABG pCO2 67.6 H POC ABG pO2 57.3 L ABG pO2 ABG HCO3 ABG O2 Saturation ABG Base Excess ABG Hemoglobin ABG Oxyhemoglobin ABG Sodium 130.9 L ABG Potassium ABG Chloride 92.0 L ABG Glucose 163 H Oxyhemoglobin Carboxyhemoglobin Sodium Potassium Chloride Carbon Dioxide BUN Creatinine Glucose POC Glucose 172 H Hemoglobin A1c Lactic Acid Calcium Magnesium Ferritin Total Bilirubin AST ALT Alkaline Phosphatase Lactate Dehydrogenase Total Creatine Kinase C-Reactive Protein Total Protein Albumin Triglycerides Arterial Blood Glucose 163 H Arterial Blood Ionized Calcium 4.2 L Ur Specific Vance Urine WBC (Auto) 172.0 H Vancomycin Trough Coronavirus (PCR) 12/22/20 12/22/20 12/22/20 05:19 11:33 17:20 WBC RBC Hgb Hct MCHC RDW Plt Count Lymph % (Auto) [place]key % (Auto) Lymph # (Auto) [place]key # (Auto) Baso # (Auto) Seg Neutrophils % Seg Neuts % (Manual) Lymphocytes % (Manual) Nucleated RBC % Seg Neutrophils # Seg Neutrophils # Man Lymphocytes # (Manual) D-Dimer ABG pH POC ABG pCO2 POC ABG pO2 ABG pO2 ABG HCO3 ABG O2 Saturation ABG Base Excess ABG Hemoglobin ABG Oxyhemoglobin ABG Sodium ABG Potassium ABG Chloride ABG Glucose Oxyhemoglobin Carboxyhemoglobin Sodium Potassium Chloride Carbon Dioxide BUN Creatinine Glucose POC Glucose 151 H 181 H 166 H Hemoglobin A1c Lactic Acid Calcium Magnesium Ferritin Total Bilirubin AST ALT Alkaline Phosphatase Lactate Dehydrogenase Total Creatine Kinase C-Reactive Protein Total Protein Albumin Triglycerides Arterial Blood Glucose Arterial Blood Ionized Calcium Ur Specific Vance Urine WBC (Auto) Vancomycin Trough Coronavirus (PCR) 12/22/20 12/23/20 12/23/20 23:25 05:19 05:32 WBC RBC Hgb Hct MCHC RDW Plt Count Lymph % (Auto) Sharkey % (Auto) Lymph # (Auto) Sharkey # (Auto) Baso # (Auto) Seg Neutrophils % Seg Neuts % (Manual) Lymphocytes % (Manual) Nucleated RBC % Seg Neutrophils # Seg Neutrophils # Man Lymphocytes # (Manual) D-Dimer ABG pH POC ABG pCO2 67.7 H POC ABG pO2 53.7 L ABG pO2 ABG HCO3 ABG O2 Saturation ABG Base Excess ABG Hemoglobin 9.6 L ABG Oxyhemoglobin ABG Sodium 130.2 L ABG Potassium ABG Chloride 88.0 L ABG Glucose 195 H Oxyhemoglobin Carboxyhemoglobin Sodium Potassium Chloride Carbon Dioxide BUN Creatinine Glucose POC Glucose 121 H 167 H Hemoglobin A1c Lactic Acid Calcium Magnesium Ferritin Total Bilirubin AST ALT Alkaline Phosphatase Lactate Dehydrogenase Total Creatine Kinase C-Reactive Protein Total Protein Albumin Triglycerides Arterial Blood Glucose 195 H Arterial Blood Ionized Calcium 4.1 L Ur Specific Vance Urine WBC (Auto) Vancomycin Trough Coronavirus (PCR) 12/23/20 12/23/20 12/23/20 06:07 11:21 18:10 WBC RBC Hgb Hct MCHC RDW Plt Count Lymph % (Auto) [place]key % (Auto) Lymph # (Auto) [place]key # (Auto) Baso # (Auto) Seg Neutrophils % Seg Neuts % (Manual) Lymphocytes % (Manual) Nucleated RBC % Seg Neutrophils # Seg Neutrophils # Man Lymphocytes # (Manual) D-Dimer ABG pH POC ABG pCO2 POC ABG pO2 ABG pO2 ABG HCO3 ABG O2 Saturation ABG Base Excess ABG Hemoglobin ABG Oxyhemoglobin ABG Sodium ABG Potassium ABG Chloride ABG Glucose Oxyhemoglobin Carboxyhemoglobin Sodium 135 L Potassium Chloride 89.3 L Carbon Dioxide 43 H* BUN Creatinine 0.2 L Glucose 193 H POC Glucose 155 H 178 H Hemoglobin A1c Lactic Acid Calcium 7.4 L Magnesium Ferritin Total Bilirubin AST ALT Alkaline Phosphatase Lactate Dehydrogenase Total Creatine Kinase C-Reactive Protein Total Protein Albumin Triglycerides Arterial Blood Glucose Arterial Blood Ionized Calcium Ur Specific Vance Urine WBC (Auto) Vancomycin Trough Coronavirus (PCR) 12/23/20 12/24/20 12/24/20 23:21 04:49 05:00 WBC RBC Hgb Hct MCHC RDW Plt Count Lymph % (Auto) [place]key % (Auto) Lymph # (Auto) [place]key # (Auto) Baso # (Auto) Seg Neutrophils % Seg Neuts % (Manual) Lymphocytes % (Manual) Nucleated RBC % Seg Neutrophils # Seg Neutrophils # Man Lymphocytes # (Manual) D-Dimer ABG pH POC ABG pCO2 75.5 H POC ABG pO2 50.5 L ABG pO2 ABG HCO3 ABG O2 Saturation ABG Base Excess ABG Hemoglobin 8.8 L ABG Oxyhemoglobin 86.3 L ABG Sodium 131.6 L ABG Potassium ABG Chloride 88.0 L ABG Glucose 186 H Oxyhemoglobin Carboxyhemoglobin 2.1 H Sodium Potassium Chloride Carbon Dioxide BUN Creatinine Glucose POC Glucose 126 H Hemoglobin A1c Lactic Acid Calcium Magnesium Ferritin Total Bilirubin AST ALT Alkaline Phosphatase Lactate Dehydrogenase Total Creatine Kinase C-Reactive Protein Total Protein Albumin Triglycerides 486 H Arterial Blood Glucose 186 H Arterial Blood Ionized Calcium 4.0 L Ur Specific Vance Urine WBC (Auto) Vancomycin Trough Coronavirus (PCR) 12/24/20 12/24/20 12/24/20 05:19 11:57 16:44 WBC RBC Hgb Hct MCHC RDW Plt Count Lymph % (Auto) [place] % (Auto) Lymph # (Auto) [place]key # (Auto) Baso # (Auto) Seg Neutrophils % Seg Neuts % (Manual) Lymphocytes % (Manual) Nucleated RBC % Seg Neutrophils # Seg Neutrophils # Man Lymphocytes # (Manual) D-Dimer ABG pH POC ABG pCO2 POC ABG pO2 ABG pO2 ABG HCO3 ABG O2 Saturation ABG Base Excess ABG Hemoglobin ABG Oxyhemoglobin ABG Sodium ABG Potassium ABG Chloride ABG Glucose Oxyhemoglobin Carboxyhemoglobin Sodium Potassium Chloride Carbon Dioxide BUN Creatinine Glucose POC Glucose 162 H 163 H 191 H Hemoglobin A1c Lactic Acid Calcium Magnesium Ferritin Total Bilirubin AST ALT Alkaline Phosphatase Lactate Dehydrogenase Total Creatine Kinase C-Reactive Protein Total Protein Albumin Triglycerides Arterial Blood Glucose Arterial Blood Ionized Calcium Ur Specific Vance Urine WBC (Auto) Vancomycin Trough Coronavirus (PCR) 12/24/20 12/24/20 12/24/20 17:28 18:57 20:48 WBC 19.1 H RBC 2.91 L Hgb 8.3 L Hct 26.0 L MCHC RDW 16.0 H Plt Count Lymph % (Auto) [place]key % (Auto) Lymph # (Auto) [place]key # (Auto) Baso # (Auto) Seg Neutrophils % Seg Neuts % (Manual) 92.0 H Lymphocytes % (Manual) 5.0 L Nucleated RBC % Seg Neutrophils # Seg Neutrophils # Man 17.6 H Lymphocytes # (Manual) 1.0 L D-Dimer ABG pH 7.250 L POC ABG pCO2 102.6 H 82.1 H POC ABG pO2 42.4 L 38.6 L ABG pO2 ABG HCO3 ABG O2 Saturation ABG Base Excess ABG Hemoglobin 9.0 L 9.3 L ABG Oxyhemoglobin 69.9 L 70.8 L ABG Sodium 131.1 L 130.7 L ABG Potassium ABG Chloride 89.0 L 89.0 L ABG Glucose 211 H 226 H Oxyhemoglobin Carboxyhemoglobin 1.7 H 1.8 H Sodium Potassium Chloride Carbon Dioxide BUN Creatinine Glucose POC Glucose Hemoglobin A1c Lactic Acid Calcium Magnesium Ferritin Total Bilirubin AST ALT Alkaline Phosphatase Lactate Dehydrogenase Total Creatine Kinase C-Reactive Protein Total Protein Albumin Triglycerides Arterial Blood Glucose 211 H 226 H Arterial Blood Ionized Calcium 4.0 L 4.1 L Ur Specific Vance Urine WBC (Auto) Vancomycin Trough Coronavirus (PCR) 12/24/20 12/25/20 12/25/20 23:31 04:04 06:31 WBC RBC Hgb Hct MCHC RDW Plt Count Lymph % (Auto) [place] % (Auto) Lymph # (Auto) [place] # (Auto) Baso # (Auto) Seg Neutrophils % Seg Neuts % (Manual) Lymphocytes % (Manual) Nucleated RBC % Seg Neutrophils # Seg Neutrophils # Man Lymphocytes # (Manual) D-Dimer ABG pH POC ABG pCO2 75.6 H POC ABG pO2 43.3 L ABG pO2 ABG HCO3 ABG O2 Saturation ABG Base Excess ABG Hemoglobin 10.6 L ABG Oxyhemoglobin 77.6 L ABG Sodium 131.4 L ABG Potassium ABG Chloride 90.0 L ABG Glucose 185 H Oxyhemoglobin Carboxyhemoglobin 2.4 H Sodium Potassium Chloride Carbon Dioxide BUN Creatinine Glucose POC Glucose 181 H 153 H Hemoglobin A1c Lactic Acid Calcium Magnesium Ferritin Total Bilirubin AST ALT Alkaline Phosphatase Lactate Dehydrogenase Total Creatine Kinase C-Reactive Protein Total Protein Albumin Triglycerides Arterial Blood Glucose 185 H Arterial Blood Ionized Calcium 4.1 L Ur Specific V[place] Urine WBC (Auto) Vancomycin Trough Coronavirus (PCR) 12/25/20 12/25/20 12/25/20 11:17 11:17 11:17 WBC 19.6 H RBC 2.82 L Hgb 8.1 L Hct 25.2 L MCHC RDW 16.2 H Plt Count Lymph % (Auto) [place] % (Auto) Lymph # (Auto) [place] # (Auto) Baso # (Auto) Seg Neutrophils % Seg Neuts % (Manual) Lymphocytes % (Manual) Nucleated RBC % Seg Neutrophils # Seg Neutrophils # Man Lymphocytes # (Manual) D-Dimer ABG pH POC ABG pCO2 POC ABG pO2 ABG pO2 ABG HCO3 ABG O2 Saturation ABG Base Excess ABG Hemoglobin ABG Oxyhemoglobin ABG Sodium ABG Potassium ABG Chloride ABG Glucose Oxyhemoglobin Carboxyhemoglobin Sodium 136 L Potassium Chloride 92.3 L Carbon Dioxide 44 H* BUN Creatinine 0.3 L Glucose 240 H POC Glucose Hemoglobin A1c Lactic Acid Calcium 7.3 L Magnesium Ferritin Total Bilirubin AST ALT Alkaline Phosphatase Lactate Dehydrogenase Total Creatine Kinase C-Reactive Protein Total Protein Albumin Triglycerides 328 H Arterial Blood Glucose Arterial Blood Ionized Calcium Ur Specific V[place] Urine WBC (Auto) Vancomycin Trough Coronavirus (PCR) 12/25/20 12/25/20 12/25/20 12:07 17:52 21:49 WBC RBC Hgb Hct MCHC RDW Plt Count Lymph % (Auto) [place] % (Auto) Lymph # (Auto) [place]key # (Auto) Baso # (Auto) Seg Neutrophils % Seg Neuts % (Manual) Lymphocytes % (Manual) Nucleated RBC % Seg Neutrophils # Seg Neutrophils # Man Lymphocytes # (Manual) D-Dimer ABG pH POC ABG pCO2 POC ABG pO2 ABG pO2 ABG HCO3 ABG O2 Saturation ABG Base Excess ABG Hemoglobin ABG Oxyhemoglobin ABG Sodium ABG Potassium ABG Chloride ABG Glucose Oxyhemoglobin Carboxyhemoglobin Sodium Potassium Chloride Carbon Dioxide BUN Creatinine Glucose POC Glucose 210 H 188 H 152 H Hemoglobin A1c Lactic Acid Calcium Magnesium Ferritin Total Bilirubin AST ALT Alkaline Phosphatase Lactate Dehydrogenase Total Creatine Kinase C-Reactive Protein Total Protein Albumin Triglycerides Arterial Blood Glucose Arterial Blood Ionized Calcium Ur Specific V[place] Urine WBC (Auto) Vancomycin Trough Coronavirus (PCR) 12/25/20 12/26/20 12/26/20 23:47 04:00 05:20 WBC RBC Hgb Hct MCHC RDW Plt Count Lymph % (Auto) [place] % (Auto) Lymph # (Auto) [place] # (Auto) Baso # (Auto) Seg Neutrophils % Seg Neuts % (Manual) Lymphocytes % (Manual) Nucleated RBC % Seg Neutrophils # Seg Neutrophils # Man Lymphocytes # (Manual) D-Dimer ABG pH POC ABG pCO2 73.4 H POC ABG pO2 58.8 L ABG pO2 ABG HCO3 ABG O2 Saturation ABG Base Excess ABG Hemoglobin 7.4 L ABG Oxyhemoglobin ABG Sodium 135.2 L ABG Potassium ABG Chloride 96.0 L ABG Glucose 164 H Oxyhemoglobin Carboxyhemoglobin Sodium Potassium Chloride Carbon Dioxide BUN Creatinine Glucose POC Glucose 138 H 147 H Hemoglobin A1c Lactic Acid Calcium Magnesium Ferritin Total Bilirubin AST ALT Alkaline Phosphatase Lactate Dehydrogenase Total Creatine Kinase C-Reactive Protein Total Protein Albumin Triglycerides Arterial Blood Glucose 164 H Arterial Blood Ionized Calcium 4.1 L Ur Specific Vance Urine WBC (Auto) Vancomycin Trough Coronavirus (PCR) 12/26/20 12/26/20 12/26/20 05:26 05:26 05:26 WBC 16.2 H RBC 2.75 L Hgb 7.8 L Hct 24.1 L MCHC RDW 16.3 H Plt Count 451 H Lymph % (Auto) [place]key % (Auto) Lymph # (Auto) [place]key # (Auto) Baso # (Auto) Seg Neutrophils % Seg Neuts % (Manual) 87.0 H Lymphocytes % (Manual) Nucleated RBC % 5.0 H Seg Neutrophils # Seg Neutrophils # Man 14.1 H Lymphocytes # (Manual) 0.0 L D-Dimer ABG pH POC ABG pCO2 POC ABG pO2 ABG pO2 ABG HCO3 ABG O2 Saturation ABG Base Excess ABG Hemoglobin ABG Oxyhemoglobin ABG Sodium ABG Potassium ABG Chloride ABG Glucose Oxyhemoglobin Carboxyhemoglobin Sodium Potassium Chloride 95.2 L Carbon Dioxide 44 H* BUN Creatinine 0.2 L Glucose 155 H POC Glucose Hemoglobin A1c Lactic Acid Calcium 7.4 L Magnesium Ferritin Total Bilirubin AST ALT Alkaline Phosphatase Lactate Dehydrogenase Total Creatine Kinase C-Reactive Protein Total Protein 6.0 L Albumin 1.6 L Triglycerides 307 H Arterial Blood Glucose Arterial Blood Ionized Calcium Ur Specific V[place] Urine WBC (Auto) Vancomycin Trough Coronavirus (PCR) 12/26/20 12/26/20 12/26/20 11:21 17:26 23:22 WBC RBC Hgb Hct MCHC RDW Plt Count Lymph % (Auto) [place] % (Auto) Lymph # (Auto) [place]key # (Auto) Baso # (Auto) Seg Neutrophils % Seg Neuts % (Manual) Lymphocytes % (Manual) Nucleated RBC % Seg Neutrophils # Seg Neutrophils # Man Lymphocytes # (Manual) D-Dimer ABG pH POC ABG pCO2 POC ABG pO2 ABG pO2 ABG HCO3 ABG O2 Saturation ABG Base Excess ABG Hemoglobin ABG Oxyhemoglobin ABG Sodium ABG Potassium ABG Chloride ABG Glucose Oxyhemoglobin Carboxyhemoglobin Sodium Potassium Chloride Carbon Dioxide BUN Creatinine Glucose POC Glucose 127 H 134 H 125 H Hemoglobin A1c Lactic Acid Calcium Magnesium Ferritin Total Bilirubin AST ALT Alkaline Phosphatase Lactate Dehydrogenase Total Creatine Kinase C-Reactive Protein Total Protein Albumin Triglycerides Arterial Blood Glucose Arterial Blood Ionized Calcium Ur Specific V[place] Urine WBC (Auto) Vancomycin Trough Coronavirus (PCR) 12/27/20 12/27/20 12/27/20 03:19 05:17 10:52 WBC RBC Hgb Hct MCHC RDW Plt Count Lymph % (Auto) [place] % (Auto) Lymph # (Auto) [place]key # (Auto) Baso # (Auto) Seg Neutrophils % Seg Neuts % (Manual) Lymphocytes % (Manual) Nucleated RBC % Seg Neutrophils # Seg Neutrophils # Man Lymphocytes # (Manual) D-Dimer ABG pH POC ABG pCO2 75.0 H POC ABG pO2 74.3 L ABG pO2 ABG HCO3 ABG O2 Saturation ABG Base Excess ABG Hemoglobin 7.3 L ABG Oxyhemoglobin 92.8 L ABG Sodium 135.6 L ABG Potassium ABG Chloride ABG Glucose 151 H Oxyhemoglobin Carboxyhemoglobin 2.0 H Sodium 136 L Potassium Chloride 96.8 L Carbon Dioxide 38 H BUN Creatinine 0.2 L Glucose 139 H POC Glucose 121 H Hemoglobin A1c Lactic Acid Calcium 7.0 L Magnesium Ferritin Total Bilirubin AST 52 H ALT Alkaline Phosphatase Lactate Dehydrogenase Total Creatine Kinase C-Reactive Protein Total Protein 4.7 L D Albumin 1.1 L Triglycerides Arterial Blood Glucose 151 H Arterial Blood Ionized Calcium 4.2 L Ur Specific Vance Urine WBC (Auto) Vancomycin Trough Coronavirus (PCR) 12/27/20 12/27/20 12/27/20 12:02 14:09 17:36 WBC 14.4 H RBC 2.82 L Hgb 8.0 L Hct 25.6 L MCHC 31 L RDW 16.4 H Plt Count 442 H Lymph % (Auto) [place]key % (Auto) Lymph # (Auto) [place] # (Auto) Baso # (Auto) Seg Neutrophils % Seg Neuts % (Manual) 36.0 L Lymphocytes % (Manual) 7.0 L Nucleated RBC % 18.0 H Seg Neutrophils # Seg Neutrophils # Man Lymphocytes # (Manual) 1.0 L D-Dimer ABG pH POC ABG pCO2 POC ABG pO2 ABG pO2 ABG HCO3 ABG O2 Saturation ABG Base Excess ABG Hemoglobin ABG Oxyhemoglobin ABG Sodium ABG Potassium ABG Chloride ABG Glucose Oxyhemoglobin Carboxyhemoglobin Sodium Potassium Chloride Carbon Dioxide BUN Creatinine Glucose POC Glucose 126 H 107 H Hemoglobin A1c Lactic Acid Calcium Magnesium Ferritin Total Bilirubin AST ALT Alkaline Phosphatase Lactate Dehydrogenase Total Creatine Kinase C-Reactive Protein Total Protein Albumin Triglycerides Arterial Blood Glucose Arterial Blood Ionized Calcium Ur Specific [place] Urine WBC (Auto) Vancomycin Trough Coronavirus (PCR) 12/27/20 12/28/20 12/28/20 22:58 03:48 05:45 WBC 13.4 H RBC 2.78 L Hgb 7.9 L Hct 25.1 L MCHC RDW 16.4 H Plt Count 484 H Lymph % (Auto) [place] % (Auto) Lymph # (Auto) [place]key # (Auto) Baso # (Auto) Seg Neutrophils % Seg Neuts % (Manual) 86.0 H Lymphocytes % (Manual) 2.0 L Nucleated RBC % 2.0 H Seg Neutrophils # Seg Neutrophils # Man 11.5 H Lymphocytes # (Manual) 0.3 L D-Dimer ABG pH POC ABG pCO2 73.1 H POC ABG pO2 66.2 L ABG pO2 ABG HCO3 ABG O2 Saturation ABG Base Excess ABG Hemoglobin 8.9 L ABG Oxyhemoglobin 90.3 L ABG Sodium ABG Potassium 3.3 L ABG Chloride ABG Glucose 107 H Oxyhemoglobin Carboxyhemoglobin 1.6 H Sodium Potassium Chloride Carbon Dioxide BUN Creatinine Glucose POC Glucose 130 H Hemoglobin A1c Lactic Acid Calcium Magnesium Ferritin Total Bilirubin AST ALT Alkaline Phosphatase Lactate Dehydrogenase Total Creatine Kinase C-Reactive Protein Total Protein Albumin Triglycerides Arterial Blood Glucose 107 H Arterial Blood Ionized Calcium 4.4 L Ur Specific V[place] Urine WBC (Auto) Vancomycin Trough Coronavirus (PCR) 12/28/20 12/29/20 12/29/20 05:45 04:00 04:00 WBC 18.0 H RBC 2.80 L Hgb 8.0 L Hct 25.3 L MCHC RDW 17.1 H Plt Count 486 H Lymph % (Auto) [place]key % (Auto) Lymph # (Auto) [place]key # (Auto) Baso # (Auto) Seg Neutrophils % Seg Neuts % (Manual) 83.0 H Lymphocytes % (Manual) 10.0 L Nucleated RBC % 2.0 H Seg Neutrophils # Seg Neutrophils # Man 14.9 H Lymphocytes # (Manual) D-Dimer ABG pH POC ABG pCO2 POC ABG pO2 ABG pO2 ABG HCO3 ABG O2 Saturation ABG Base Excess ABG Hemoglobin ABG Oxyhemoglobin ABG Sodium ABG Potassium ABG Chloride ABG Glucose Oxyhemoglobin Carboxyhemoglobin Sodium Potassium 3.2 L D Chloride Carbon Dioxide 41 H* 38 H BUN Creatinine 0.3 L 0.3 L Glucose 135 H POC Glucose Hemoglobin A1c Lactic Acid Calcium 7.3 L 7.5 L Magnesium Ferritin Total Bilirubin AST ALT Alkaline Phosphatase Lactate Dehydrogenase Total Creatine Kinase C-Reactive Protein Total Protein 6.0 L D 6.1 L Albumin 1.4 L 1.5 L Triglycerides 284 H Arterial Blood Glucose Arterial Blood Ionized Calcium Ur Specific Vance Urine WBC (Auto) Vancomycin Trough Coronavirus (PCR) 12/29/20 12/29/20 12/29/20 04:00 05:42 11:54 WBC RBC Hgb Hct MCHC RDW Plt Count Lymph % (Auto) [place]key % (Auto) Lymph # (Auto) [place]key # (Auto) Baso # (Auto) Seg Neutrophils % Seg Neuts % (Manual) Lymphocytes % (Manual) Nucleated RBC % Seg Neutrophils # Seg Neutrophils # Man Lymphocytes # (Manual) D-Dimer ABG pH 7.319 L POC ABG pCO2 71.0 H POC ABG pO2 65.2 L ABG pO2 ABG HCO3 ABG O2 Saturation ABG Base Excess ABG Hemoglobin 8.7 L ABG Oxyhemoglobin ABG Sodium ABG Potassium ABG Chloride ABG Glucose 140 H Oxyhemoglobin Carboxyhemoglobin Sodium Potassium Chloride Carbon Dioxide BUN Creatinine Glucose POC Glucose 126 H 128 H Hemoglobin A1c Lactic Acid Calcium Magnesium Ferritin Total Bilirubin AST ALT Alkaline Phosphatase Lactate Dehydrogenase Total Creatine Kinase C-Reactive Protein Total Protein Albumin Triglycerides Arterial Blood Glucose 140 H Arterial Blood Ionized Calcium 4.3 L Ur Specific Vance Urine WBC (Auto) Vancomycin Trough Coronavirus (PCR) 12/29/20 12/29/20 12/30/20 17:54 23:47 04:00 WBC 15.0 H RBC 2.89 L Hgb 8.2 L Hct 26.1 L MCHC RDW 17.3 H Plt Count Lymph % (Auto) 9.2 L [place]key % (Auto) Lymph # (Auto) [place]key # (Auto) Baso # (Auto) Seg Neutrophils % 87.0 H Seg Neuts % (Manual) Lymphocytes % (Manual) Nucleated RBC % Seg Neutrophils # 13.1 H Seg Neutrophils # Man Lymphocytes # (Manual) D-Dimer ABG pH POC ABG pCO2 POC ABG pO2 ABG pO2 ABG HCO3 ABG O2 Saturation ABG Base Excess ABG Hemoglobin ABG Oxyhemoglobin ABG Sodium ABG Potassium ABG Chloride ABG Glucose Oxyhemoglobin Carboxyhemoglobin Sodium Potassium Chloride Carbon Dioxide BUN Creatinine Glucose POC Glucose 155 H 139 H Hemoglobin A1c Lactic Acid Calcium Magnesium Ferritin Total Bilirubin AST ALT Alkaline Phosphatase Lactate Dehydrogenase Total Creatine Kinase C-Reactive Protein Total Protein Albumin Triglycerides Arterial Blood Glucose Arterial Blood Ionized Calcium Ur Specific Vance Urine WBC (Auto) Vancomycin Trough Coronavirus (PCR) 12/30/20 12/30/20 12/30/20 04:00 04:14 05:25 WBC RBC Hgb Hct MCHC RDW Plt Count Lymph % (Auto) [place]key % (Auto) Lymph # (Auto) [place]key # (Auto) Baso # (Auto) Seg Neutrophils % Seg Neuts % (Manual) Lymphocytes % (Manual) Nucleated RBC % Seg Neutrophils # Seg Neutrophils # Man Lymphocytes # (Manual) D-Dimer ABG pH POC ABG pCO2 69.3 H POC ABG pO2 61.3 L ABG pO2 ABG HCO3 ABG O2 Saturation ABG Base Excess ABG Hemoglobin 9.1 L ABG Oxyhemoglobin 88.0 L ABG Sodium ABG Potassium ABG Chloride ABG Glucose 159 H Oxyhemoglobin Carboxyhemoglobin 1.8 H Sodium Potassium Chloride Carbon Dioxide 37 H BUN Creatinine 0.3 L Glucose 156 H POC Glucose 141 H Hemoglobin A1c Lactic Acid Calcium 7.6 L Magnesium Ferritin Total Bilirubin AST ALT Alkaline Phosphatase Lactate Dehydrogenase Total Creatine Kinase C-Reactive Protein Total Protein 6.0 L Albumin 1.4 L Triglycerides Arterial Blood Glucose 159 H Arterial Blood Ionized Calcium 4.4 L Ur Specific [place] Urine WBC (Auto) Vancomycin Trough Coronavirus (PCR) 12/30/20 12/30/20 12/30/20 12:18 17:37 23:55 WBC RBC Hgb Hct MCHC RDW Plt Count Lymph % (Auto) [place] % (Auto) Lymph # (Auto) [place]key # (Auto) Baso # (Auto) Seg Neutrophils % Seg Neuts % (Manual) Lymphocytes % (Manual) Nucleated RBC % Seg Neutrophils # Seg Neutrophils # Man Lymphocytes # (Manual) D-Dimer ABG pH POC ABG pCO2 POC ABG pO2 ABG pO2 ABG HCO3 ABG O2 Saturation ABG Base Excess ABG Hemoglobin ABG Oxyhemoglobin ABG Sodium ABG Potassium ABG Chloride ABG Glucose Oxyhemoglobin Carboxyhemoglobin Sodium Potassium Chloride Carbon Dioxide BUN Creatinine Glucose POC Glucose 147 H 167 H 141 H Hemoglobin A1c Lactic Acid Calcium Magnesium Ferritin Total Bilirubin AST ALT Alkaline Phosphatase Lactate Dehydrogenase Total Creatine Kinase C-Reactive Protein Total Protein Albumin Triglycerides Arterial Blood Glucose Arterial Blood Ionized Calcium Ur Specific Vance Urine WBC (Auto) Vancomycin Trough Coronavirus (PCR) 12/31/20 12/31/20 12/31/20 04:00 05:32 06:19 WBC RBC Hgb Hct MCHC RDW Plt Count Lymph % (Auto) [place]key % (Auto) Lymph # (Auto) [place]key # (Auto) Baso # (Auto) Seg Neutrophils % Seg Neuts % (Manual) Lymphocytes % (Manual) Nucleated RBC % Seg Neutrophils # Seg Neutrophils # Man Lymphocytes # (Manual) D-Dimer ABG pH 7.316 L POC ABG pCO2 POC ABG pO2 ABG pO2 56.9 L ABG HCO3 38.0 H ABG O2 Saturation 90.4 L ABG Base Excess 11.1 H ABG Hemoglobin 5.1 L ABG Oxyhemoglobin ABG Sodium ABG Potassium ABG Chloride ABG Glucose Oxyhemoglobin 87.7 L Carboxyhemoglobin Sodium Potassium Chloride Carbon Dioxide 37 H BUN Creatinine 0.3 L Glucose 152 H POC Glucose 158 H Hemoglobin A1c Lactic Acid Calcium 7.3 L Magnesium Ferritin Total Bilirubin AST ALT Alkaline Phosphatase Lactate Dehydrogenase Total Creatine Kinase C-Reactive Protein Total Protein 6.1 L Albumin 1.4 L Triglycerides Arterial Blood Glucose Arterial Blood Ionized Calcium Ur Specific Vance Urine WBC (Auto) Vancomycin Trough Coronavirus (PCR) 12/31/20 12/31/20 12/31/20 12:22 18:17 23:37 WBC RBC Hgb Hct MCHC RDW Plt Count Lymph % (Auto) [place]key % (Auto) Lymph # (Auto) [place]key # (Auto) Baso # (Auto) Seg Neutrophils % Seg Neuts % (Manual) Lymphocytes % (Manual) Nucleated RBC % Seg Neutrophils # Seg Neutrophils # Man Lymphocytes # (Manual) D-Dimer ABG pH POC ABG pCO2 POC ABG pO2 ABG pO2 ABG HCO3 ABG O2 Saturation ABG Base Excess ABG Hemoglobin ABG Oxyhemoglobin ABG Sodium ABG Potassium ABG Chloride ABG Glucose Oxyhemoglobin Carboxyhemoglobin Sodium Potassium Chloride Carbon Dioxide BUN Creatinine Glucose POC Glucose 131 H 136 H 139 H Hemoglobin A1c Lactic Acid Calcium Magnesium Ferritin Total Bilirubin AST ALT Alkaline Phosphatase Lactate Dehydrogenase Total Creatine Kinase C-Reactive Protein Total Protein Albumin Triglycerides Arterial Blood Glucose Arterial Blood Ionized Calcium Ur Specific Vance Urine WBC (Auto) Vancomycin Trough Coronavirus (PCR) 12/31/20 01/01/21 01/01/21 Unknown 04:50 05:10 WBC 16.2 H RBC 2.89 L Hgb 8.0 L Hct 25.9 L MCHC 31 L RDW 18.2 H Plt Count 458 H Lymph % (Auto) [place]key % (Auto) Lymph # (Auto) [place]key # (Auto) Baso # (Auto) Seg Neutrophils % Seg Neuts % (Manual) 96.0 H Lymphocytes % (Manual) 3.0 L Nucleated RBC % 3.0 H Seg Neutrophils # Seg Neutrophils # Man 15.6 H Lymphocytes # (Manual) 0.5 L D-Dimer ABG pH 7.268 L POC ABG pCO2 POC ABG pO2 ABG pO2 56.9 L ABG HCO3 38.8 H ABG O2 Saturation 85.5 L ABG Base Excess 10.7 H ABG Hemoglobin 6.4 L ABG Oxyhemoglobin ABG Sodium ABG Potassium ABG Chloride ABG Glucose Oxyhemoglobin 82.8 L Carboxyhemoglobin Sodium Potassium Chloride Carbon Dioxide BUN Creatinine Glucose POC Glucose 143 H Hemoglobin A1c Lactic Acid Calcium Magnesium Ferritin Total Bilirubin AST ALT Alkaline Phosphatase Lactate Dehydrogenase Total Creatine Kinase C-Reactive Protein Total Protein Albumin Triglycerides Arterial Blood Glucose Arterial Blood Ionized Calcium Ur Specific Vance Urine WBC (Auto) Vancomycin Trough Coronavirus (PCR) 01/01/21 01/01/21 01/01/21 11:29 17:00 17:33 WBC 16.1 H RBC 2.68 L Hgb 7.8 L Hct 24.5 L MCHC RDW 18.9 H Plt Count Lymph % (Auto) [place]key % (Auto) Lymph # (Auto) [place]key # (Auto) Baso # (Auto) Seg Neutrophils % Seg Neuts % (Manual) Lymphocytes % (Manual) 9.0 L Nucleated RBC % 2.0 H Seg Neutrophils # Seg Neutrophils # Man Lymphocytes # (Manual) D-Dimer ABG pH POC ABG pCO2 POC ABG pO2 ABG pO2 ABG HCO3 ABG O2 Saturation ABG Base Excess ABG Hemoglobin ABG Oxyhemoglobin ABG Sodium ABG Potassium ABG Chloride ABG Glucose Oxyhemoglobin Carboxyhemoglobin Sodium Potassium Chloride Carbon Dioxide BUN Creatinine Glucose POC Glucose 153 H 120 H Hemoglobin A1c Lactic Acid Calcium Magnesium Ferritin Total Bilirubin AST ALT Alkaline Phosphatase Lactate Dehydrogenase Total Creatine Kinase C-Reactive Protein Total Protein Albumin Triglycerides Arterial Blood Glucose Arterial Blood Ionized Calcium Ur Specific Vance Urine WBC (Auto) Vancomycin Trough Coronavirus (PCR) 01/01/21 01/02/21 01/02/21 23:23 04:45 05:28 WBC RBC Hgb Hct MCHC RDW Plt Count Lymph % (Auto) [place]key % (Auto) Lymph # (Auto) [place]key # (Auto) Baso # (Auto) Seg Neutrophils % Seg Neuts % (Manual) Lymphocytes % (Manual) Nucleated RBC % Seg Neutrophils # Seg Neutrophils # Man Lymphocytes # (Manual) D-Dimer ABG pH 7.219 L POC ABG pCO2 102.6 H POC ABG pO2 49.7 L ABG pO2 ABG HCO3 ABG O2 Saturation ABG Base Excess ABG Hemoglobin 8.4 L ABG Oxyhemoglobin 79.4 L ABG Sodium ABG Potassium ABG Chloride ABG Glucose 146 H Oxyhemoglobin Carboxyhemoglobin 2.3 H Sodium Potassium Chloride Carbon Dioxide BUN Creatinine Glucose POC Glucose 144 H 133 H Hemoglobin A1c Lactic Acid Calcium Magnesium Ferritin Total Bilirubin AST ALT Alkaline Phosphatase Lactate Dehydrogenase Total Creatine Kinase C-Reactive Protein Total Protein Albumin Triglycerides Arterial Blood Glucose 146 H Arterial Blood Ionized Calcium 4.4 L Ur Specific Vance Urine WBC (Auto) Vancomycin Trough Coronavirus (PCR) 01/02/21 01/02/21 01/02/21 11:50 17:53 23:26 WBC RBC Hgb Hct MCHC RDW Plt Count Lymph % (Auto) [place]key % (Auto) Lymph # (Auto) [place]key # (Auto) Baso # (Auto) Seg Neutrophils % Seg Neuts % (Manual) Lymphocytes % (Manual) Nucleated RBC % Seg Neutrophils # Seg Neutrophils # Man Lymphocytes # (Manual) D-Dimer ABG pH POC ABG pCO2 POC ABG pO2 ABG pO2 ABG HCO3 ABG O2 Saturation ABG Base Excess ABG Hemoglobin ABG Oxyhemoglobin ABG Sodium ABG Potassium ABG Chloride ABG Glucose Oxyhemoglobin Carboxyhemoglobin Sodium Potassium Chloride Carbon Dioxide BUN Creatinine Glucose POC Glucose 139 H 149 H 155 H Hemoglobin A1c Lactic Acid Calcium Magnesium Ferritin Total Bilirubin AST ALT Alkaline Phosphatase Lactate Dehydrogenase Total Creatine Kinase C-Reactive Protein Total Protein Albumin Triglycerides Arterial Blood Glucose Arterial Blood Ionized Calcium Ur Specific Vance Urine WBC (Auto) Vancomycin Trough Coronavirus (PCR) 01/02/21 01/03/21 01/03/21 Unknown 03:51 05:23 WBC RBC Hgb Hct MCHC RDW Plt Count Lymph % (Auto) Sharkey % (Auto) Lymph # (Auto) Sharkey # (Auto) Baso # (Auto) Seg Neutrophils % Seg Neuts % (Manual) Lymphocytes % (Manual) Nucleated RBC % Seg Neutrophils # Seg Neutrophils # Man Lymphocytes # (Manual) D-Dimer ABG pH POC ABG pCO2 73.4 H POC ABG pO2 44.7 L ABG pO2 ABG HCO3 ABG O2 Saturation ABG Base Excess ABG Hemoglobin 7.8 L ABG Oxyhemoglobin ABG Sodium ABG Potassium ABG Chloride ABG Glucose 177 H Oxyhemoglobin Carboxyhemoglobin Sodium Potassium Chloride Carbon Dioxide BUN Creatinine Glucose POC Glucose 156 H Hemoglobin A1c Lactic Acid Calcium Magnesium Ferritin Total Bilirubin AST ALT Alkaline Phosphatase Lactate Dehydrogenase Total Creatine Kinase C-Reactive Protein Total Protein Albumin Triglycerides 718 H Arterial Blood Glucose 177 H Arterial Blood Ionized Calcium 4.3 L Ur Specific Vance Urine WBC (Auto) Vancomycin Trough Coronavirus (PCR) 01/03/21 01/03/21 01/03/21 06:00 11:41 17:17 WBC 12.5 H RBC 2.34 L Hgb 6.9 L Hct 21.9 L MCHC RDW 19.3 H Plt Count Lymph % (Auto) Sharkey % (Auto) Lymph # (Auto) Sharkey # (Auto) Baso # (Auto) Seg Neutrophils % Seg Neuts % (Manual) 82.0 H Lymphocytes % (Manual) 6.0 L Nucleated RBC % 10.0 H Seg Neutrophils # Seg Neutrophils # Man 10.3 H Lymphocytes # (Manual) 0.8 L D-Dimer ABG pH POC ABG pCO2 POC ABG pO2 ABG pO2 ABG HCO3 ABG O2 Saturation ABG Base Excess ABG Hemoglobin ABG Oxyhemoglobin ABG Sodium ABG Potassium ABG Chloride ABG Glucose Oxyhemoglobin Carboxyhemoglobin Sodium Potassium Chloride Carbon Dioxide BUN Creatinine Glucose POC Glucose 124 H 140 H Hemoglobin A1c Lactic Acid Calcium Magnesium Ferritin Total Bilirubin AST ALT Alkaline Phosphatase Lactate Dehydrogenase Total Creatine Kinase C-Reactive Protein Total Protein Albumin Triglycerides Arterial Blood Glucose Arterial Blood Ionized Calcium Ur Specific Vance Urine WBC (Auto) Vancomycin Trough Coronavirus (PCR) 01/03/21 01/03/21 01/04/21 23:47 Unknown 04:49 WBC RBC Hgb Hct MCHC RDW Plt Count Lymph % (Auto) Sharkey % (Auto) Lymph # (Auto) Sharkey # (Auto) Baso # (Auto) Seg Neutrophils % Seg Neuts % (Manual) Lymphocytes % (Manual) Nucleated RBC % Seg Neutrophils # Seg Neutrophils # Man Lymphocytes # (Manual) D-Dimer ABG pH 7.245 L POC ABG pCO2 98.0 H POC ABG pO2 47.5 L ABG pO2 ABG HCO3 ABG O2 Saturation ABG Base Excess ABG Hemoglobin 9.9 L ABG Oxyhemoglobin ABG Sodium ABG Potassium ABG Chloride ABG Glucose 171 H Oxyhemoglobin Carboxyhemoglobin Sodium Potassium Chloride Carbon Dioxide 37 H BUN 24 H Creatinine 0.4 L Glucose 156 H POC Glucose 158 H Hemoglobin A1c Lactic Acid Calcium 6.8 L Magnesium Ferritin Total Bilirubin AST ALT Alkaline Phosphatase Lactate Dehydrogenase Total Creatine Kinase C-Reactive Protein Total Protein Albumin Triglycerides Arterial Blood Glucose 171 H Arterial Blood Ionized Calcium 4.5 L Ur Specific Vance Urine WBC (Auto) Vancomycin Trough Coronavirus (PCR) 01/04/21 01/04/21 01/04/21 05:14 06:45 06:45 WBC 13.0 H RBC 2.34 L Hgb 6.9 L Hct 21.8 L MCHC RDW 19.7 H Plt Count Lymph % (Auto) Sharkey % (Auto) Lymph # (Auto) Sharkey # (Auto) Baso # (Auto) Seg Neutrophils % Seg Neuts % (Manual) 79.0 H Lymphocytes % (Manual) Nucleated RBC % Seg Neutrophils # Seg Neutrophils # Man 10.3 H Lymphocytes # (Manual) D-Dimer ABG pH POC ABG pCO2 POC ABG pO2 ABG pO2 ABG HCO3 ABG O2 Saturation ABG Base Excess ABG Hemoglobin ABG Oxyhemoglobin ABG Sodium ABG Potassium ABG Chloride ABG Glucose Oxyhemoglobin Carboxyhemoglobin Sodium Potassium Chloride Carbon Dioxide 39 H BUN 26 H Creatinine 0.4 L Glucose 164 H POC Glucose 144 H Hemoglobin A1c Lactic Acid Calcium 7.2 L Magnesium Ferritin Total Bilirubin AST ALT Alkaline Phosphatase Lactate Dehydrogenase Total Creatine Kinase C-Reactive Protein Total Protein Albumin Triglycerides Arterial Blood Glucose Arterial Blood Ionized Calcium Ur Specific Vance Urine WBC (Auto) Vancomycin Trough Coronavirus (PCR) 01/04/21 01/04/21 01/04/21 11:58 17:31 23:14 WBC RBC Hgb Hct MCHC RDW Plt Count Lymph % (Auto) Sharkey % (Auto) Lymph # (Auto) Sharkey # (Auto) Baso # (Auto) Seg Neutrophils % Seg Neuts % (Manual) Lymphocytes % (Manual) Nucleated RBC % Seg Neutrophils # Seg Neutrophils # Man Lymphocytes # (Manual) D-Dimer ABG pH POC ABG pCO2 POC ABG pO2 ABG pO2 ABG HCO3 ABG O2 Saturation ABG Base Excess ABG Hemoglobin ABG Oxyhemoglobin ABG Sodium ABG Potassium ABG Chloride ABG Glucose Oxyhemoglobin Carboxyhemoglobin Sodium Potassium Chloride Carbon Dioxide BUN Creatinine Glucose POC Glucose 141 H 139 H 140 H Hemoglobin A1c Lactic Acid Calcium Magnesium Ferritin Total Bilirubin AST ALT Alkaline Phosphatase Lactate Dehydrogenase Total Creatine Kinase C-Reactive Protein Total Protein Albumin Triglycerides Arterial Blood Glucose Arterial Blood Ionized Calcium Ur Specific Vance Urine WBC (Auto) Vancomycin Trough Coronavirus (PCR) 01/05/21 01/05/21 01/05/21 05:21 06:00 Unknown WBC RBC Hgb Hct MCHC RDW Plt Count Lymph % (Auto) Sharkey % (Auto) Lymph # (Auto) Sharkey # (Auto) Baso # (Auto) Seg Neutrophils % Seg Neuts % (Manual) Lymphocytes % (Manual) Nucleated RBC % Seg Neutrophils # Seg Neutrophils # Man Lymphocytes # (Manual) D-Dimer ABG pH 7.258 L POC ABG pCO2 POC ABG pO2 ABG pO2 43.9 L ABG HCO3 41.0 H ABG O2 Saturation 73.2 L ABG Base Excess 11.8 H ABG Hemoglobin 8.6 L ABG Oxyhemoglobin ABG Sodium ABG Potassium ABG Chloride ABG Glucose Oxyhemoglobin 70.4 L Carboxyhemoglobin Sodium Potassium Chloride Carbon Dioxide BUN Creatinine Glucose POC Glucose 152 H Hemoglobin A1c Lactic Acid Calcium Magnesium Ferritin Total Bilirubin AST ALT Alkaline Phosphatase Lactate Dehydrogenase Total Creatine Kinase C-Reactive Protein Total Protein Albumin Triglycerides 240 H Arterial Blood Glucose Arterial Blood Ionized Calcium Ur Specific Vance Urine WBC (Auto) Vancomycin Trough Coronavirus (PCR)
[2021-01-05] MEDS: FAMOTIDINE 20 MG TAB PO SCH ×2 (09:10→21:17)
[2021-01-05] MEDS: POLYETHYLENE GLYCOL 3350 17 GM POWDER PO SCH (09:10)
[2021-01-05] MEDS: DOCUSATE SODIUM 100 MG/10 ML ORAL LIQD PO SCH ×2 (09:10→21:16)
--- NOTE | 2021-01-05 15:54 | Progress Note ---
Assessment and Plan Assessment and plan: -S/p antibiotic therapy -Remains on vasopressor support -RASS goal -4 per CCM -Chest tube management as per surgery/CCM -Maintained on mechanical ventilation, wean as tolerated -Continue to monitor glucose levels and urine output -Continue supportive care -ID and critical care following -Prognosis is very poor DVT/GI prophylaxis: SCDs to bilateral lower extremities while in bed, Lovenox subcu, PPI Disposition: ICU The high probability of a clinically significant, sudden or life threatening deterioration of the [multi] system(s) required my full and direct attention, intervention and personal management. The aggregate critical care time was [35] minutes. This time is in addition to time spent performing reported procedures but includes the following: [x] Data Review and interpretation [x] Patient assessment and monitoring of vital signs [x] Documentation [x] Medication orders and management History Interval history: 59-year-old female who is smoker who presented to [facility] with shortness of breath cough fever weakness for 1 to 2 days prior to arrival. Per EMS the patient was severely hypoxic with saturations in the low 80s. With all oxygen and nonrebreather came down to low 90s. ID, pulmonary, CCM were consulted. Septic Shock Coag Negative staph/Entrococcus bactermia MRSA/Klebsiella in sputum COVID-19 pneumonia Acute hypoxic hypercapnic respiratory failure Bilateral pneumothorax Pneumomediastinum with subcutaneous emphysema Elevated D-dimer Transaminitis secondary to Covid 19 Klebsiella pneumonia Type 2 diabetes mellitus Severe protien calorie malnutrition secondary to critical illness Metabolic alkalosis Hypercapnia 2/1: Patient continues on BiPAP throughout the night. Labs are remarkable for hypoxia with improving renal function but lactic acidosis without fever. CTA has been ordered to rule out pulmonary embolism. I agree with increasing enoxaparin to twice daily full dose for empiric treatment of pulmonary embolism. Will obtain ID consultation on further evaluation for possible underlying pneumonia versus COVID-19. We will also obtain echocardiogram for evaluation. Will discontinue fluids at t his time. 2/2; Continue supportive care, Patient remains with very guarded prognosis, remains on BiPAP, continues on Remdesivir, and steroids. Will continue anticoagulation, unable to get CTA Chest due to patients unstable clinical status. Will adjust insulin for better blood glucose 2/3: Continues on BIPAP, no clear improvement at this time. Will continue steroids therapy Remdesivir and also Full anticoagulation at this time. Will update family. Discussed with Freight Separator. 11/19: Taking a break from the BiPAP on high flow and nonrebreather 100% with saturation of 90% becomes hypoxic with any movement. Freight Separator input noted will get a dose of Lasix today. Will await a discussion with ID for possibly increasing steroid. I updated Patient's Cousin, Tayla Esquivel who is the emergency contact acid plant operator. Blood sugar remains fluctuating secondary to steriods, Encouraged Prone positioning. Noted with mild hyponatremia we will continue to monitor and manage 11/20: Continue supportive care wean oxygen as tolerated prognosis remains guarded. Encouraged to progress as tolerated. Awaiting labs today. Discussed with nursing staff and patient at bedside. 11/21: Discontinued Dexamethasone as Solumedrol started secondary to increased oxygen demand. Will give additional insulin for better control. Continue oxygen support patient still on high flow. Prognosis still guarded 11/22: Patient was intubated and placed on mechanical ventilation. Continue current medication. Will check a.m. labs today. Noted still with hypotension. Doubt septic shock at this time as patient has no new fever. Will adjust insulin for better blood sugar control. 11/23: Patient admitted with COVID-19 despite all efforts patient remains severely hypoxic and now is intubated. Freight Separator input noted. Blood pressure marginal at this time. Very poor prognosis. Continue Solu-Medrol. 11/24. Patient remains very hypoxic. Blood pressure borderline. Plan for initiation of paralytic agents as per forest management professor. Patient may need to be tra nsferred if no improvement. 11/26. Off paralytics. Remains intubated. On steroids. Prognosis is poor. 11/27. Chest xray shows pneumomediastinum and subcutaneous emphysema. Surgery consulted. Plan for chest tube placement. Sputum culture grew MRSA. Patient started on vancomycin per ID. 11/28. Right chest tube placed yesterday by surgery. Repeat chest x-ray showed left small pneumothorax. Plan for chest tube placement on the left today. Remains on paralytic agents. 11/29. Remains intubated on vent. Had left chest tube placed yesterday. Vitals reviewed. Critical care following 11/30/ Remains on mechanical ventilation. Worsening hypoxia. Bilateral chest tubes in place. Vitals reviewed. Labs reviewed 12/01: Chest tube and mechanical ventilation remains in place, poor prognosis, FIO2 remains at 90%, adjust insulin for better blood glucose control 12/02: Patient remains on full ventilatory support and steroids, still with worsening leukocytosis ?inflammatory or infectious vs steroids. Continue vancomycin. 12/03; slowly weaning, 12/04: Still on the vent FiO2 down to 65% PEEP remains at 18. Still with poor prognosis. 12/05: Patient continues on full ventilatory support per forest management professor PEEP remains at 18. Still with hypercapnic respiratory failure. FiO2 down to 60% this mor fabiola. Chest tube to suction still weaning off steroids in the deliberation ongoing for possible a third chest tube as last documentation by surgery shows no plan for it at this time. Continue to manage insulin for better blood sugar control. 12/06:weaned down to 60%, continue supportive care, unable to wean, 12/07; patient remains intubated on ventilatory support, chest tubes in place trach and PEG when patient's Covid test is negative,Per surgery. 12/08; Patient remains intubated remains with hypercapnia and hypoxia. Chest tube still remain in place. He is off antibiotics at this time. Continue steroids which is likely resultant to the leukocytosis. Freight Separator and surgeon following ID input is noted. Prognosis remains guarded to poor 12/10; patient remains intubated on vent, unable to wean awaiting trach and PEG when Covid test is negative, Continue current management 12/11; patient awaiting trach and PEG when Covid test is negative, vent dependent, poor prognosis 12/12; clinically no change, vent dependent, Patient is critically ill with very poor prognosis, awaiting trach and PEG when COVID-19 test turns negative. Plan discussed with nursing staff. Caregivers have discussed with patient's family periodically 12/13: Patient is critically ill with very poor prognosis, awaiting trach and PEG when COVID-19 test turns negative. Plan discussed with nursing staff. C aregivers have discussed with patient's family periodically 12/14: Increase UOP which we will monitor and replete as needed. Patient remain hypoxemic on ABG despite 100 FiO2, remains on fentanyl, precedex, versed and levo gtt. 12/15: Patient remains sedated on fentanyl at 3 mcg, Versed at 30 mg, dex amethasone 0.3 and was on Levophed 6 mcg this morning. Patient's vent settings rate of 30, tidal volume 425, PEEP of 18, FiO2 of 85. RT attempted to wean as tolerated. No acute events reported overnight. Bilateral chest tubes to wall suction. 12/16: Overnight the patient was noted to be bradycardic, Precedex drip was increased to 0.6/fentanyl to 4 mcg/Versed 5 mg, bilateral chest tube to suction. Current vent settings for 425/30/18/0.75, RT to wean as tolerated 12/17: Patient's T-max overnight was 101.2, obtain CXR today, blood culture x2 per ID. Patient remains on fentanyl, Versed, Precedex and Levophed. Current vent settings AC 425/30/18/0.75, RT to wean as tolerated. Continue steroid taper. 12/18: Patient remains sedated on fentanyl, Versed, Precedex and has vasopressor support of Levophed, current vent settings 425/30/18/0.75 with bilateral chest tubes to wall suction. Patient's blood culture from 12/17 grew gram-positive cocci in pairs and chains however the patient is on vancomycin and cefepime. We will continue to follow for speciation and sensitivity. 12/19: Unfortunately remains on full ventilatory support prognosis remains very poor. No new fever however since 12/17. Continue to follow cultures not finalized yet. Antibiotics per ID critical care management input noted. Patient remains on high FiO2 and PEEP at this time. 12/20: Still with intermittent fever, likely secondary to covid 19, still with hyponatremia, continue with tube feed. cultures with coagulas negative staph, await further ID input. Continues on abx. 12/21: Patient remains on fentanyl, Precedex, Versed and Levophed and assist control for 25/30/18/.100 with bilateral chest tubes in place. Patient remains on antibiotic therapy. No acute events reported overnight. 12/22: Patient remains sedated on Precedex and fentanyl and on vasopressor support, blood cultures grew coag negative Staphylococcus and Enterococcus and antibiotic therapy was deescalated to ampicillin by infectious disease. This morning patient was on assist control for 25/30/18/0.100 and respiratory therapy to decrease FiO2 as tolerated. 12/23: Patient remains sedated on Versed, fentanyl, propofol, dexamethasone and vasopressor support with Levophed. Patient is on ampicillin with a T-max of 99 and current vent settings assist-control 425/30/18/0.90 which is being weaned as tolerated by RT. Patient bowel regimen escalated. 12/24: Patient was febrile overnight to 102, remains sedated on Versed, fentanyl, propofol and Precedex and on respiratory support with Levophed. This morning at the time my examination patient was on assist control 425/30/18/0.100. Patient's bowel regimen was escalated. This afternoon patient SPO2 dropped into the upper 60s and low 70s, patient was removed off the ventilator and bagged by RT with improvement in his SPO2 to mid 70s and his ventilator settings were adjusted with an increase in PEEP to 22 and reduction in tidal volume. Patient remained with SPO2 in the 70s to 80s then suddenly dropped his SPO2 again. A CXR was obtained and patient received 40 mg of IV Lasix. CXR showed pneumothorax and general surgery was consulted for chest tube placement. Patient's existing right chest tube was replaced after removal. During chest tube was placed on the right side and a repeat CXR is being performed. Dr. German and Dr. Henry were kept up to date throughout the process and Dr. Henry was at beside during this time. I attempted to call Kehinde but was unable to contact him but left a voicemail. Jd was called and informed of changes with translation provided by Tayla. I spoke to them on the phone for over 30 minutes and explained the situation. They did not wish to change his CODE STATUS. Per CCM the patient respikes his temperature over the next 24 hours we will reculture his urine and blood. Patient remains on antibiotic therapy for 14 days per infectious disease 01/04/2021. Repeat blood cultures are negative. 12/25: Patient developed subcu emphysema on right chest and a repeat CXR shows minimal pneumothorax on the right chest wall which has not increased in size. At the time of my examination patient was on assist control 400/30/18/0.100 and the subcutaneous emphysema was noted after the patient's PEEP was increased. Patient remains sedated on Versed, fentanyl, Precedex and propofol with vasopressor support of Levophed. Patient's family decided to make the patient an AND and his CODE STATUS was updated. We will continue supportive care. Infectious disease has escalated antibiotic therapy to Zosyn. 12/26. Remains mechanically ventilated. On AC 30/400/100% PEEP 22. Not responsive. Sedated. On pressors. Labs reviewed. On antibiotics. 12/27. No change in medical condition. Remains on AC 30/40/1 100% PEEP of 22. Sedated and on pressors. On antibiotics-Zosyn. ID and critical care on board. General surgery also following for management of chest tubes. Prognosis is very poor 12/28: Patient remains sedated on Versed, fentanyl, propofol and Precedex and has vasopressor support with Levophed quad strength at 22. Patient subcu air seems to be bilateral in his upper chest. At the time my examination patient is on 400/30/22/.95 and RT will wean his vent 0.90. Patient still has leukocytosis, metabolic alkalosis, hypokalemia. 12/29: Patient remains sedated on Versed, fentanyl, Precedex and propofol with vasopressor support with Levophed. Patient remains on assist control 400/30/22/0.90 and still [place] ptosis. Patient hypokalemia has resolved 12/30: Remains sedated on propofol, Versed, fentanyl, Precedex and on Levophed. Current vent settings assist-control 400/30/22/0.80 and improving leukocytosis and metabolic alkalosis. He will complete Zosyn today. No acute events reported overnight. Patient's urine output has decreased over the past couple days and we will continue to monitor. 12/31: Patient remains intubated on mechanical ventilation. Continue RASS goal - 4 per CCM. Continue Zosyn per ID recommendations with completion of antibiotics tomorrow. Patient with extremely poor prognosis and agree with DNR status. 01/01: Patient currently on AC/PRVC mode rate 30, tidal volume 400, FiO2 100% and PEEP of 22. Patient currently with sedation of propofol, fentanyl and Versed. Patient requiring pressors of Levophed. Currently chest tubes to suction and repeat chest x-ray on Monday. Wean FiO2 as tolerated. Guarded prognosis. 01/02: Patient currently on AC/PRVC mode rate 30, tidal volume 400, FiO2 80% and PEEP of 22. Patient currently with sedation of propofol, fentanyl and Versed. Patient requiring pressors of Levophed. Currently chest tubes to suction and repeat chest x-ray on Monday. Wean FiO2 as tolerated. Guarded prognosis. 01/03: Pulmonary reports inability to wean FiO2. Patient currently on AC/PRVC mode rate 30, tidal volume 400, FiO2 80% and PEEP of 22. Currently chest tubes to suction and repeat chest x-ray on Monday. Continue pressors to maintain MAP > 65. Poor prognosis. 01/04: Patient remains sedated on fentanyl, Versed, propofol, Precedex and with minimal support with Levophed with bilateral chest tubes in place current vent settings for /0.100. Per [facility] patient family will be approached for comfort measures if no improvement by Monday. No acute events reported overnight. 01/05: Patient was febrile overnight, remains on Precedex, fentanyl, propofol, L evophed and Versed. Patient remains on full ventilatory support. Goals of care discussion with family. [facility] on Monday. Repeat COVID-19 PCR positive Hospitalist Physical - Constitutional Vitals: Temp Pulse Resp BP Pulse Ox 99.5 F 101 H 30 H 94/55 96 01/05/21 11:56 01/05/21 14:00 01/05/21 14:00 01/05/21 14:00 01/05/21 14:00 General appearance: Present: no acute distress, other (comatose) - EENT ENT: dentition normal - Neck Neck: Absent: masses or JVD, cervical LAD - Respiratory Respiratory effort: normal Respiratory: bilateral: rhonchi - Cardiovascular Rhythm: regular Heart Sounds: Present: S1 & S2. Absent: systolic murmur, diastolic murmur - Extremities Extremities: no ischemia, pulses intact, pulses symmetrical, No edema Peripheral Pulses: within normal limits - Abdominal General gastrointestinal: soft, non-tender, non-distended, normal bowel sounds - Integumentary Integumentary: Present: warm, dry - Psychiatric Psychiatric: other (Sedated) - Neurologic Neurologic: other (Sedated) HEART Score - HEART Score Troponin: Troponin T < 0.010 ng/mL (0.00-0.029) 12/11/20 06:30 Results - Labs CBC & Chem 7: 01/04/21 06:45 01/04/21 06:45 Labs: Laboratory Last Values WBC 13.0 K/mm3 (4.5-11.0) H 01/04/21 06:45 RBC 2.34 M/mm3 (3.65-5.03) L 01/04/21 06:45 Hgb 6.9 gm/dl (11.8-15.2) L 01/04/21 06:45 Hct 21.8 % (35.5-45.6) L 01/04/21 06:45 MCV 93 fl (84-94) 01/04/21 06:45 MCH 30 pg (28-32) 01/04/21 06:45 MCHC 32 % (32-34) 01/04/21 06:45 RDW 19.7 % (13.2-15.2) H 01/04/21 06:45 Plt Count 343 K/mm3 (140-440) 01/04/21 06:45 Lymph % (Auto) 9.2 % (13.4-35.0) L 12/30/20 04:00 Andrew % (Auto) 2.9 % (0.0-7.3) 12/30/20 04:00 Eos % (Auto) 0.6 % (0.0-4.3) 12/30/20 04:00 Baso % (Auto) 0.3 % (0.0-1.8) 12/30/20 04:00 Lymph # (Auto) 1.4 K/mm3 (1.2-5.4) 12/30/20 04:00 Andrew # (Auto) 0.4 K/mm3 (0.0-0.8) 12/30/20 04:00 Eos # (Auto) 0.1 K/mm3 (0.0-0.4) 12/30/20 04:00 Baso # (Auto) 0.0 K/mm3 (0.0-0.1) 12/30/20 04:00 Add Manual Diff Complete 01/04/21 06:45 Total Counted 100 01/04/21 06:45 Seg Neutrophils % 87.0 % (40.0-70.0) H 12/30/20 04:00 Seg Neuts % (Manual) 79.0 % (40.0-70.0) H 01/04/21 06:45 Band Neutrophils % 5.0 % 01/03/21 06:00 Lymphocytes % (Manual) 15.0 % (13.4-35.0) 01/04/21 06:45 Monocytes % (Manual) 6.0 % (0.0-7.3) 01/04/21 06:45 Eosinophils % (Manual) 1.0 % (0.0-4.3) 01/03/21 06:00 Metamyelocytes % 1.0 % 01/03/21 06:00 Myelocytes % 1.0 % 12/31/20 Unknown Nucleated RBC % Not Reportable 01/04/21 06:45 Seg Neutrophils # 13.1 K/mm3 (1.8-7.7) H 12/30/20 04:00 Seg Neutrophils # Man 10.3 K/mm3 (1.8-7.7) H 01/04/21 06:45 Band Neutrophils # 0.0 K/mm3 01/04/21 06:45 Lymphocytes # (Manual) 2.0 K/mm3 (1.2-5.4) 01/04/21 06:45 Abs React Lymphs (Man) 0.0 K/mm3 01/04/21 06:45 Monocytes # (Manual) 0.8 K/mm3 (0.0-0.8) 01/04/21 06:45 Eosinophils # (Manual) 0.0 K/mm3 (0.0-0.4) 01/04/21 06:45 Basophils # (Manual) 0.0 K/mm3 (0.0-0.1) 01/04/21 06:45 Metamyelocytes # 0.0 K/mm3 01/04/21 06:45 Myelocytes # 0.0 K/mm3 01/04/21 06:45 Promyelocytes # 0.0 K/mm3 01/04/21 06:45 Blast Cells # 0.0 K/mm3 01/04/21 06:45 WBC Morphology Not Reportable 01/04/21 06:45 Hypersegmented Neuts Not Reportable 01/04/21 06:45 Hyposegmented Neuts Not Reportable 01/04/21 06:45 Hypogranular Neuts Not Reportable 01/04/21 06:45 Smudge Cells Not Reportable 01/04/21 06:45 Toxic Granulation Not Reportable 01/04/21 06:45 Toxic Vacuolation Not Reportable 01/04/21 06:45 Dohle Bodies Not Reportable 01/04/21 06:45 Pelger-Huet Anomaly Not Reportable 01/04/21 06:45 Tony Rods Not Reportable 01/04/21 06:45 Platelet Estimate Not Reportable 01/04/21 06:45 Clumped Platelets Not Reportable 01/04/21 06:45 Plt Clumps, EDTA Not Reportable 01/04/21 06:45 Large Platelets Not Reportable 01/04/21 06:45 Giant Platelets Not Reportable 01/04/21 06:45 Platelet Satelliting Not Reportable 01/04/21 06:45 Plt Morphology Comment Not Reportable 01/04/21 06:45 RBC Morphology Not Reportable 01/04/21 06:45 Dimorphic RBCs Not Reportable 01/04/21 06:45 Polychromasia 1+ 01/04/21 06:45 Hypochromasia Not Reportable 01/04/21 06:45 Poikilocytosis Not Reportable 01/04/21 06:45 Anisocytosis 1+ 01/04/21 06:45 Microcytosis Few 01/04/21 06:45 Macrocytosis Not Reportable 01/04/21 06:45 Spherocytes Not Reportable 01/04/21 06:45 Pappenheimer Bodies Not Reportable 01/04/21 06:45 Sickle Cells Not Reportable 01/04/21 06:45 Target Cells Not Reportable 01/04/21 06:45 Tear Drop Cells Not Reportable 01/04/21 06:45 Ovalocytes Not Reportable 01/04/21 06:45 Stomatocytes Rare 12/27/20 14:09 Helmet Cells Not Reportable 01/04/21 06:45 [place] Bodies Not Reportable 01/04/21 06:45 Warner Rings Not Reportable 01/04/21 06:45 Marion Cells Not Reportable 01/04/21 06:45 Bite Cells Not Reportable 01/04/21 06:45 Crenated Cell Not Reportable 01/04/21 06:45 Elliptocytes Not Reportable 01/04/21 06:45 Acanthocytes (Spur) Not Reportable 01/04/21 06:45 Rouleaux Not Reportable 01/04/21 06:45 Hemoglobin C Crystals Not Reportable 01/04/21 06:45 Schistocytes Not Reportable 01/04/21 06:45 Malaria parasites Not Reportable 01/04/21 06:45 Yovani Bodies Not Reportable 01/04/21 06:45 Hem Pathologist Commnt No 01/04/21 06:45 D-Dimer 926.11 ng/mlDDU (0-234) H 11/26/20 06:04 ABG pH 7.258 pH Units (7.350-7.450) L 01/05/21 Unknown POC ABG pCO2 98.0 mmHg (32.0-48.0) H 01/04/21 04:49 ABG pCO2 93.9 mm Hg 01/05/21 Unknown POC ABG pO2 47.5 mmHg (83-108) L 01/04/21 04:49 ABG pO2 43.9 mm Hg (80.0-90.0) L 01/05/21 Unknown POC ABG HCO3 41.5 01/04/21 04:49 ABG HCO3 41.0 mmol/L (20.0-26.0) H 01/05/21 Unknown ABG O2 Saturation 73.2 % (95.0-99.0) L 01/05/21 Unknown ABG O2 Content 8.6 (0.0-44) 01/05/21 Unknown POC ABG Base Excess 11.5 01/04/21 04:49 ABG Base Excess 11.8 mmol/L (-2.0-3.0) H 01/05/21 Unknown ABG Hemoglobin 8.6 gm/dl (14.0-18.0) L 01/05/21 Unknown ABG Oxyhemoglobin 79.4 (94-98) L 01/02/21 04:45 ABG Carboxyhemoglobin 3.1 % (0.0-5.0) 01/05/21 Unknown ABG Methemoglobin 0.6 % (0.0-1.5) 01/05/21 Unknown ABG Sodium 143.4 mmol/L (136.0-145.0) 01/04/21 04:49 ABG Potassium 4.4 mmol/L (3.40-4.50) 01/04/21 04:49 ABG Chloride 103.0 mmol/L (98-107) 01/04/21 04:49 ABG Glucose 171 mg/dL (65-95) H 01/04/21 04:49 Oxyhemoglobin 70.4 % (95.0-99.0) L 01/05/21 Unknown Carboxyhemoglobin 2.3 (0.5-1.5) H 01/02/21 04:45 FiO2 100 % 01/05/21 Unknown FiO2 % 100 01/04/21 04:49 Sodium 144 mmol/L (137-145) 01/04/21 06:45 Potassium 4.3 mmol/L (3.6-5.0) 01/04/21 06:45 Chloride 104.2 mmol/L (98-107) 01/04/21 06:45 Carbon Dioxide 39 mmol/L (22-30) H 01/04/21 06:45 Anion Gap 5 mmol/L 01/04/21 06:45 BUN 26 mg/dL (9-20) H 01/04/21 06:45 Creatinine 0.4 mg/dL (0.8-1.3) L 01/04/21 06:45 Estimated GFR > 60 ml/min 01/04/21 06:45 BUN/Creatinine Ratio 65 % 01/04/21 06:45 Glucose 164 mg/dL (75-100) H 01/04/21 06:45 POC Glucose 151 mg/dL (70-105) H 01/05/21 11:26 Hemoglobin A1c 11.7 % (4-6) H 11/16/20 05:29 Lactic Acid 2.60 mmol/L (0.7-2.0) H* 11/16/20 05:29 Calcium 7.2 mg/dL (8.4-10.2) L 01/04/21 06:45 Phosphorus 2.60 mg/dL (2.5-4.5) 12/17/20 17:25 Magnesium 1.60 mg/dL (1.7-2.3) L 12/17/20 17:25 Ferritin 778.8 ng/mL (30.0-300.0) H 11/26/20 04:00 Total Bilirubin 0.30 mg/dL (0.1-1.2) 12/31/20 04:00 AST 23 units/L (5-40) 12/31/20 04:00 ALT 23 units/L (7-56) 12/31/20 04:00 Alkaline Phosphatase 107 units/L (35-129) 12/31/20 04:00 Lactate Dehydrogenase 288 units/L (91-180) H 11/26/20 04:00 Total Creatine Kinase 47 units/L (55-170) L 12/17/20 17:25 CK-MB (CK-2) 1.8 ng/mL (0.0-4.0) 12/17/20 17:25 CK-MB (CK-2) Rel Index 3.8 (0-4) 12/17/20 17:25 Troponin T < 0.010 ng/mL (0.00-0.029) 12/11/20 06:30 C-Reactive Protein 1.40 mg/dL (0.00-1.30) H 11/26/20 04:00 NT-Pro-B Natriuret Pep 107.2 pg/mL (0-900) 11/17/20 10:21 Total Protein 6.1 g/dL (6.3-8.2) L 12/31/20 04:00 Albumin 1.4 g/dL (3.9-5) L 12/31/20 04:00 Albumin/Globulin Ratio 0.3 % 12/31/20 04:00 Triglycerides 240 mg/dL (2-149) H 01/05/21 06:00 Procalcitonin 0.16 ng/mL (<0.15) 12/12/20 05:16 Arterial Blood Glucose 171 mg/dL (65-95) H 01/04/21 04:49 Arterial Blood Ionized Calcium 4.5 mg/dL (4.6-5.3) L 01/04/21 04:49 Urine Color Yellow (Yellow) 12/21/20 Unknown Urine Turbidity Cloudy (Clear) 12/21/20 Unknown Urine pH 6.0 (5.0-7.0) 12/21/20 Unknown Ur Specific [place] 1.013 (1.003-1.030) 12/21/20 Unknown Urine Protein <15 mg/dl mg/dL (Negative) 12/21/20 Unknown Urine Glucose (UA) Neg mg/dL (Negative) 12/21/20 Unknown Urine Ketones Neg mg/dL (Negative) 12/21/20 Unknown Urine Blood Neg (Negative) 12/21/20 Unknown Urine Nitrite Neg (Negative) 12/21/20 Unknown Urine Bilirubin Neg (Negative) 12/21/20 Unknown Urine Urobilinogen < 2.0 mg/dL (<2.0) 12/21/20 Unknown Ur Leukocyte Esterase Mod (Negative) 12/21/20 Unknown Urine WBC (Auto) 172.0 /HPF (0.0-6.0) H 12/21/20 Unknown Urine RBC (Auto) > 182.0 /HPF (0.0-6.0) 12/21/20 Unknown U Epithel Cells (Auto) 3.0 /HPF (0-13.0) 12/21/20 Unknown Urine Bacteria (Auto) 2+ /HPF (Negative) 12/21/20 Unknown Ur Renal Epithelial Cell <1 /LPF 12/21/20 Unknown Urine Mucus 2+ /HPF 12/21/20 Unknown Urine Yeast (Budding) 3+ /HPF 12/21/20 Unknown Vancomycin Trough 16.9 ug/mL (5.0-20.0) 12/19/20 15:46 Coronavirus (PCR) Positive (Negative) A 01/05/21 10:10 Hepatitis A IgM Ab Non-reactive (NonReactive) 12/17/20 21:40 Hep Bs Antigen Non-reactive (Negative) 12/17/20 21:40 Hep B Core IgM Ab Non-reactive (NonReactive) 12/17/20 21:40 Hepatitis C Antibody Non-reactive (NonReactive) 12/17/20 21:40 HIV 1&2 Antibody Rapid Non react (Non React) 12/17/20 21:40 HIV P24 Antigen Non react (Non React) 12/17/20 21:40 - Diagnostic Impressions Diagnostic Impressions: Echocardiogram 11/16/20 10:34 Transthoracic Echocardiogram Indication: Shortness of breath-COVID BP: 108/77 HR: 92 Conclusions *Global left ventricular systolic function is normal. *The estimated ejection fraction is 60-65%. *Mild to moderate concentric left ventricular hypertrophy is observed. *There is trace of mitral regurgitation. *There is mild to moderate tricuspid regurgitation. *There is evidence of mild pulmonary hypertension. *The right ventricular systolic pressure is calculated at 31 mmHg. Findings Left Ventricle: The left ventricular chamber size is normal. Mild to moderate concentric left ventricular hypertrophy is observed. Global left ventricular systolic function is normal. The estimated ejection fraction is 60-65%. Left Atrium: The left atrial chamber size is normal. Right Ventricle: The right ventricular cavity size is normal. The right ventricular global systolic function is normal. Right Atrium: The right atrial cavity size is normal. Aortic Valve: The aortic valve is trileaflet. There is no evidence of aortic regurgitation. There is no evidence of aortic stenosis. Mitral Valve: The mitral valve leaflets appear normal. There is trace of mitral regurgitation. There is no evidence of mitral stenosis. Tricuspid Valve: The tricuspid valve leaflets are normal. There is mild to moderate tricuspid regurgitation. The right ventricular systolic pressure is calculated at 31 mmHg. There is evidence of mild pulmonary hypertension. Pulmonic Valve: There is trace pulmonic regurgitation. Pericardium: There is no pericardial effusion. Aorta: There is no dilatation of the ascending aorta. There is no dilatation of the aortic root. Venous: The inferior vena cava appears normal in size. Measurements Chambers 2D Name Value Normal Range IVSd (2D) 0.81 cm (0.6 - 1.1) LVPWd (2D) 0.79 cm (0.6 - 1.1) LVIDd (2D) 4.22 cm (3.7 - 5.6) LVIDs (2D) 3.1 cm (2 - 3.8) LV FS (2D) 26.71 % - EF Teichholz (2D) 52.55 % - Ao root diameter (2D) 3.34 cm (2 - 3.7) Volumes/Mass Name Value Normal Range LA ESV SP 4CH (A/L) 10.87 ml - LA ESV SP 2CH (A/L) 18.74 ml - LA ESV BP (A/L) 16.38 ml - LA ESV BP (A/L) index 8.62 ml/m2 - LA ESV SP 4CH (MOD) 10.32 ml - LA ESV SP 2CH (MOD) 17.66 ml - LA ESV BP (MOD) 15.12 ml - LA ESV BP (MOD) index 7.96 ml/m2 - Diastolic/Systolic Function Name Value Normal Range MV E-wave Vmax 0.76 m/sec - MV deceleration time 133.63 msec - MV A-wave Vmax 1.1 m/sec - MV E:A ratio 0.69 ratio - Aortic Valve Name Value Normal Range AV Vmax 1.44 m/sec - AV VTI 22.94 cm - AV peak gradient 8.33 mmHg - AV mean gradient 4.73 mmHg - LVOT diameter 2.2 cm - LVOT Vmax 1.04 m/sec - LVOT VTI 18.88 cm - LVOT peak gradient 4.34 mmHg - LVOT mean gradient 2.31 mmHg - SV LVOT 72.05 ml - EVANGELISTA (continuity Vmax) 2.75 cm2 - EVANGELISTA (continuity VTI) 3.14 cm2 - Tricuspid Valve Name Value Normal Range TR Vmax 2.64 m/sec - TR peak gradient 28 mmHg - RAP 3 mmHg - RVSP 31 mmHg - Gupta/IV: Voiding Method Indwelling Catheter IV Catheter Type [Left Peripheral IV Antecubital] Active Medications - Current Medications Current Medications: Generic Name Dose Route Start Last Admin Trade Name Freq PRN Reason Stop Dose Admin Acetaminophen 650 mg 11/15/20 23:55 01/05/21 09:53 Acetaminophen 325 Mg Tab PO 650 mg Q4H PRN Administration Pain MILD(1-3)/Fever >100.5/BUTTS Lipase/Protease/Amylase 1 each 11/23/20 11:53 01/03/21 09:18 Lipase 10,500/Protease 25,000/Amylase 43,750 (Units) Dr Slater FEEDTUBE 1 each PRN PRN Administration For Clogged Feeding Tube Dextrose 25 ml 12/10/20 05:21 12/28/20 12:18 Dextrose 50% In Water (25gm) 50 Ml Syringe IV 10 ml Q30MIN PRN Administration Hypoglycemia Protocol Docusate Sodium 100 mg 12/23/20 10:00 01/05/21 09:10 Docusate Sodium 100 Mg/10 Ml Oral Liqd PO 100 mg BID RAEANN Administration Enoxaparin Sodium 40 mg 12/03/20 22:00 01/04/21 21:29 Enoxaparin 40 Mg/0.4 Ml Inj SUB-Q 40 mg QDAY@2200 RAEANN Administration Famotidine 20 mg 12/16/20 10:00 01/05/21 09:10 Famotidine 20 Mg Tab PO 20 mg BID RAEANN Administration Hydrophilic Ointment 1 applic 11/21/20 21:53 11/30/20 21:33 Lip Therapy Vaseline TP 1 applic Q2HR PRN Administration Dry Lips Midazolam HCl 100 mg/ Sodium 100 mls @ 2 mls/hr 11/21/20 22:00 01/05/21 00:00 Chloride IV 5 mg/hr TITR RAEANN 5 mls/hr Titration Protocol 2 MG/HR Propofol 1,000 mg in 100 mls @ 2.175 mls/hr 11/27/20 12:00 01/05/21 09:13 Diprivan 10 Mg/Ml IV 20 mcg/kg/min TITR RAEANN 8.7 mls/hr Administration Protocol 5 MCG/KG/MIN Dexmedetomidine HCl 400 mcg/ 104 mls @ 4.441 mls/hr 12/10/20 13:00 01/05/21 10:16 Sodium Chloride IV 0.7 mcg/kg/hr TITRATE RAEANN 15.543 mls/hr Administration Protocol 0.2 MCG/KG/HR Fentanyl Citrate 2,000 mcg in 100 mls @ 3.9 mls/hr 12/18/20 19:00 01/05/21 09:14 Fentanyl Drip Premix IV 4 mcg/kg/hr TITR RAEANN 15.6 mls/hr Administration Protocol 1 MCG/KG/HR Vasopressin 20 unit/ Sodium 101 mls @ 9.09 mls/hr 12/24/20 18:30 Chloride IV TITR RAEANN Protocol 0.03 UNITS/MIN Norepinephrine 8 mg/ Sodium 250 mls @ 3.75 mls/hr 12/25/20 22:00 01/05/21 01:24 Chloride IV 6 mcg/min TITR RAEANN 11.25 mls/hr Titration Protocol 2 MCG/MIN Insulin Glargine 8 units 12/17/20 13:52 01/04/21 21:28 Insulin Glargine 100 Units/Ml SUB-Q 8 units QHS [facility] Administration Insulin Human Lispro 0 unit 11/22/20 06:00 01/05/21 13:00 Insulin Lispro 100 Unit/Ml SUB-Q 3 unit Q6HR [facility] Administration Protocol Lorazepam 1 mg 01/02/21 01:05 Lorazepam 2 Mg/Ml Vial IV Q4H PRN Agitation Metoclopramide HCl 10 mg 11/15/20 23:55 Metoclopramide 10 Mg/2 Ml Inj IV Q6H PRN Nausea And Vomiting Multi-Ingred Cream/Lotion/Oil/Oint 1 applic 11/21/20 21:53 Mineral Oil/Petrolatum, White Ophth Oint 3.5 Gm OU Q4HR PRN Dry Eye(s) Ondansetron HCl 4 mg 11/15/20 23:55 Ondansetron 4 Mg/2 Ml Inj IV Q8H PRN Nausea And Vomiting Polyethylene Glycol 17 gm 12/23/20 10:00 01/05/21 09:10 Polyethylene Glycol 3350 17 Gm Powder PO 17 gm QDAY RAEANN Administration Senna/Docusate Sodium 2 tab 12/21/20 14:00 01/05/21 05:22 Sennosides/Docusate Sodium 8.6/50 Mg Tab PO 2 tab Q8HR RAEANN Administration Simple Syrup 15 ml 11/23/20 11:53 Simple Syrup 15 Ml FEEDTUBE PRN PRN Hypoglycemia Simple Syrup 30 ml 11/23/20 11:53 Simple Syrup 15 Ml FEEDTUBE PRN PRN Hypoglycemia Sodium Bicarbonate 325 mg 11/23/20 11:53 01/03/21 09:18 Sodium Bicarbonate 325 Mg Tab FEEDTUBE 325 mg PRN PRN Administration For Clogged Feeding Tube Sodium Chloride 10 ml 11/16/20 10:00 01/05/21 09:13 Sodium Chloride 0.9% 10 Ml Flush Syringe IV 10 ml BID RAEANN Administration Sodium Chloride 10 ml 11/15/20 23:55 12/03/20 00:21 Sodium Chloride 0.9% 10 Ml Flush Syringe IV 10 ml PRN PRN Administration LINE FLUSH Nutrition/Malnutrition Assess - Dietary Evaluation Nutrition/Malnutrition Findings: Nutrition Notes Start: 11/20/20 12:03 Freq: Status: Active Protocol: Document 01/01/21 12:52 AL (Rec: 01/01/21 12:59 AL [id number]) Co-Sign 01/01/21 12:52 LP Nutrition Notes Initial or Follow up Reassessment Current Diagnosis Diabetes,Sepsis,Respiratory Failure Other Pertinent Diagnosis Bilat pneu, COVID-19 (+) Current Diet Glucerna 1.2 at 65 ml/hr Labs/Tests Reviewed Pertinent Medications Propofol at 6.525 ml/hr (172 kcal) Lantus Colace Miralax Height 5 ft 6 in Weight 91.1 kg Usual Body Weight 80.5 kg [place] Body Weight (kg) 64.54 BMI 32.4 Weight change and time frame 3% wt gain (2.7 kig) noted. Pt has 3+ pitting edema Weight Status Obese Subjective/Other Information F/U for TF tolerance. Pt is tolerating TF at 65 ml/hr ( goal rate). Percent of energy/protein needs met: 100%/100% Burn Absent Trauma Absent GI Symptoms None Difficulty In Swallowing,Chewing Current % PO Negligible Minimum of two criteria Yes Interpretation of Weight Loss (severe) >2% in 1 week Fluid Accumulation Moderate to Severe (severe) #3 Nutrition Diagnosis Inadequate oral intake Diagnosis Progress(for reassessment Continues documentation) #2 Nutrition Diagnosis Malnutrition As Evidenced by Signs and Symptoms Pt meeting 100%/100% of estimated energy/protein needs via TF for >7 days Diagnosis Progress(for reassessment Improved documentation) #1 Nutrition Diagnosis Unintended weight loss Diagnosis Progress(for reassessment Continues documentation) Is patient on ventilator? Yes Is Patient Ambulatory and/or Out of Bed No REE-([facility]-confined to bed) 2006.072 Kcal/Kg value to use for calculation 22 Approximate Energy Requirements Using 2003 kcal/Kg Calculation Used for Recommendations [facility] Additional Notes Protein: 87-145 g/day (1.2-2g/ kg) Fluid: 1ml/kcal or per MD Nutrition Intervention Change Diet Order: Continue TF Nutrition Support: Glucerna 1.2 at 65 ml/hr. Flush 125 ml q4h Kcal 1,872 Protein (gm) 93 Fluid (mL) 1,255 Goal #1 Meet at least 75% of energy and protein needs via TF Goal #2 TF tolerance Anticipated Discharge Needs: Unable to determine at this time Follow-Up By: 01/08/21 Additional Comments F/U for TF tolerance.
[2021-01-05] MEDS ORDERED: SODIUM CHLORIDE 0.9% 500 ML 500 ML IV NR (16:15)
--- NOTE | 2021-01-05 16:22 | Event Note ---
I called his biological brother, Kehinde and left a voicemail. I then called his half brother, Gonzalez Ashley at and he three way called his cousin Tayla. I informed them of current events (GIB) and hypoxia with position changes. I informed them of the need blood. I ordered a stat h/h and ordered transfusion of 2 units of blood. They do want blood products to be given. RN to obtain consent.
[2021-01-05 17:07] LABS: Hematocrit 23.6 % (35.5-45.6); Hemoglobin 6.9 gm/dl (11.8-15.2); Mean Corpuscular HGB Conc 29 % (32-34); Mean Corpuscular Volume 93 fl (84-94); Platelet Count 408 K/mm3 (140-440); Red Blood Count 2.53 M/mm3 (3.65-5.03); Red Cell Distribution Width 19.3 % (13.2-15.2)
[2021-01-05] MEDS: MIDAZOLAM 100 MG in SODIUM CHLORIDE 0.9% 80 ML IV SCH (19:31)
[2021-01-05] MEDS: NORepinephrine 8 MG in SODIUM CHLORIDE 0.9% 250ML 242 ML IV SCH (19:33)
[2021-01-05] MEDS: INSULIN GLARGINE 100 UNITS/ML SUB-Q SCH (21:16)
[2021-01-06] MEDS: INSULIN LISPRO 100 UNIT/ML SUB-Q SCH ×2 (00:22→06:32)
[2021-01-06] MEDS: fentaNYL DRIP Premix 2,000 MCG/100 ML BAG IV SCH ×3 (04:56→20:16)
[2021-01-06] MEDS: SENNOSIDES/DOCUSATE SODIUM 8.6/50 MG TAB PO SCH (05:00)
[2021-01-06 06:24] LABS: Hematocrit 31.1 % (35.5-45.6); Hemoglobin 9.6 gm/dl (11.8-15.2); Mean Corpuscular HGB Conc 31 % (32-34); Mean Corpuscular Volume 91 fl (84-94); Platelet Count 373 K/mm3 (140-440); Red Blood Count 3.44 M/mm3 (3.65-5.03); Red Cell Distribution Width 18.4 % (13.2-15.2)
[2021-01-06 06:46] LABS: Blood Urea Nitrogen 28 mg/dL (9-20); Calcium 6.9 mg/dL (8.4-10.2); Hemolysis Index 9
[2021-01-06 06:47] LABS: BUN/Creatinine Ratio 56
[2021-01-06] MEDS: DOCUSATE SODIUM 100 MG/10 ML ORAL LIQD PO SCH (09:27)
[2021-01-06] MEDS: FAMOTIDINE 20 MG TAB PO SCH (09:27)
[2021-01-06] MEDS: POLYETHYLENE GLYCOL 3350 17 GM POWDER PO SCH (09:27)
--- NOTE | 2021-01-06 11:30 | Progress Note ---
Assessment and Plan 59 y/o male with acute respiratory failure, abnormal CXR and abnormal lab studies. 01/06/21: Long discussion with brother over the phone. Will withdraw care tomorrow. Comfort measures for now. Minimize MAR for comfort therapy only. 01/05/21: Febrile now. Will discuss on rounds next appropriate steps (change out/remove garcia, DVT studies, CXR, cultures, etc vs discussion with family about overall clinical state). Not sure if aggressive measures would improve outcome in this particular situation. Given the amount of time (51 days) and the level of hypoxemia, brain function is likely very limited, however not able to truly tell given the amount of sedation required to maintain oxygenation. Plan is to discuss with family this week overall prognosis, and goals of care. At this point, most likely the best thing is comfort measures. 01/04/21: Prognosis remains very very poor. Inspite of all of our efforts, no real improvement has been seen. Will give the family a little more time but will need to have talks this week about comfort measures given lack of improvement. Patient is an AND, but right now quality of life should be considered more than quantity. Continue supportive care. 01/01/21: Continue chest tubes to Suction, all of them. Continue increased suction on the tubes on the right at least through the weekend. Consider repeat CXR on Monday but no need to order over the weekend, will assess when I get back. Continue sedation at current level. Ok with trying to inch down FiO2 as tolerated but keep PaO2 55 and greater and sats 92% and greater. Guarded to poor prognosis. 12/31/20: Examined chest tubes and increased suction in pleurovac to 30 cmH2O. Only serosanguinous fluid, no blood. Explained to nursing re-inforcing mechanisms with vaseline gauze and slitted 4x4's. 12/30/20: Continue supportive measures. Continue to wean FiO2 for sats >88%, but will go slowly given his tenuous course. Chest tubes to suction. Explained to nursing, that sub q air will be present but for now, nothing to do unless oxygen saturation drops rapidly, then would need stat CXR to evaluate for worsening PTX or tension. 12/29/20: Continue supporitve measures. Continue sedation and vasopressor suppo rt. Chest tubes will remain until patient is extubated if able to do so. Prognosis is very very guarded. 12/27/20: Continue supportive measures. Continue sedation and vasopressor support. Chest tubes remain until extubated if able to do so. Very very guarded prognosis. 12/26/20: Very very poor prognosis given prolong time of hypoxemia during the events from and continued hypoxemia despite 100%. PTX's and recurrent PTX's have been very common with this current wave of COVID 19 so not entirely unexpected. Appreciate surgery help with second chest tube. Will Strip tubes again tomorrow morning. COntinue sedation and vasopressor support. Very very poor prognosis. Please do not give any further lasix, as the changes seen are not edema related. 12/24/20: If patient spikes again in the next 24 hours, please reculture urine and blood. In regards to cuff, as long as patient is not losing volumes, no indication to change tube out as of yet. Will continue to monitor. Continue abx as ID recs. Attempt to wean back down again but unfortunately this has been an ongoing issue for this patient. Continue pressors to help achieve adequate sedation for vent management. Prognosis remains guarded. 12/23/20: Continue current level of sedation. Wean parameters as listed below. appreciate ID recs and help. 12/22/20: Continue current level of sedation. Ok to wean FiO2 for sats >88% and PaO2>55mmHg. Follow up ID recs in regards to abx therapy. Prognosis unfortunately still remains guarded. 12/21/20: Back up to 100%. Peep is the same chest tubes intact. Long discussion on rounds, will restart Diprovan to obtain adequate sedation (RASS of -4). Ok to titrate pressors to achieve adequate sedation if blood pressure is compromised by sedatives. Prognosis remains guarded. Awaiting speciation of other cultures. 12/18/20: Still on 75% and 18 of PEEP. Follow up cultures, Blood pending, urine has not resulted yet. Had another temp at 20:00 last night. CXR looks more like pulmonary edema but not in a position to diurese at this time as he occasionally requires vasopressor support given the amount of sedation needed to achieve a RASS of 4. If he continues to spike, would consider hospital acquired coverage of abx therapy. Prognosis remains guarded. 12/17/20: Back down to 75%. Febrile last night, if and when spikes again today, please obtain blood cultures times 2 and urine. Will go ahead and order repeat CXR now. Prognosis still remains guarded. 12/16/20: Back up to 100%. Once stabilized will attempt to wean back down. ABG in the am and may need to consider repeat ABG later this afternoon pending clinical state. Unable to prone given bilateral chest tubes. Prognosis remains guarded to poor. 12/15/20: Tolerating weaning from yesterday. RT to attempt to wean some more today. Kidney function remains unchanged. Guarded prognosis. 12/14/20: Unable to wean FiO2 today. Continue supportive measures. Great that his kidney function has maintained but given the amount of oxygen he continues to require, his chances of recovery continue to decrease. Family aware and will up date them as needed. Very very guarded prognosis. 12/13/20: WIll start Weaning FiO2 again tomorrow morning of PaO2 remains this good. Continue all other supportive measures. Guarded prognosis. Monitor renal function closely. 12/12/20: Long discussion with brother at door. Patient remains full code which is not unreasonable but family is realistic about outcome being poor. Will continue all supportive measures. IF clinical state worsens, will ask family to come back to see patient. Guarded Prognosis. 12/11/20: Will attempt to wean Diprovan off and increase precedex. Triglycerides were ok. IF we have to support with pressors we will but I have asked nursing to please be detailed in their checkouts as to why they did certain things with the continuous drips. Continue supportive measures. Brother is going to try to come and see him from [place] 12/10/20: No acute events overnight. Patient has had waxing and waning of the amount of oxygen he has required over the last 24-72 hours. I have a bad feeling that he is on the brink of cardiac arrest and this could happen at any moment. I am going to reach out to the brother today to explain to him my concerns. Patient is a full code. Very very guarded prognosis. 12/09/20: Repeat ABG later today. Wean FiO2 for sats >88%. Repeat CXR as well. With BP dropping could be relative adrenal insufficiency, will watch for now, however if pressor requirement increases would consider stress dose steroids and maybe volume replacement. Follow up cultures. Guarded prognosis. 12/08/20: Increase TV to 425. Drop FiO2 to 65% and wean for sats >88%. COntinue chest tubes. Change steroids to 20q12. 12/07/20: CXR is stable, no indication for another chest tube at this time. Will repeat ABG in 1 hour post change to 70% and wean accordingly. Dropping steroids to 20q8. Guarded prognosis. Same weaning parameters apply today as of 12/04/20 12/04/20: Continue to wean steroids to off. Continue to wean FiO2 for sats >88%. Keep PEEP at current level, would not feel comfortable weaning PEEP until FiO2 at 35-40%. Continue chest tubes to suction. PaO2 of >55, pH of >7.2 and sats >88% are acceptable. : Dropped steroids down to 40q8 and will start to wean from there. Continue to slowly wean FiO2 first, keep PEEP at current level. Spoke with Kehinde, please see my event note, who is the biological brother. He had no questions but thanked us for our care. Prognosis remains very very guarded. PaO2 of 55 and pH of >7.2 and sats of >88% are all acceptable. 12/02/20: Wean FiO2 for sats >88% and PaO2 >55. Unable to prone currently secondary to bilateral chest tubes. COntinue high dose steroids. CM To figure out who is the immediate next of kin that can make decisions and then we will discuss the current clinical situation with them. 12/01/20: Continue PEEP and FiO2 elevated to keep sats >88% and PaO2 >55. Small lung volumes and high PEEP. very very guarded prognosis. 11/30/20: Worsening hypoxemia. Chest tubes stable. Likely just worsening disease. Unable to prone now. Increase PEEP to 18 and FiO2 back up to 100. Continue 3 sedatives for RASS of -2. Obtain 12 lead to look at T waves as K was only 4.6 on yesterday. Guarded, guarded prognosis 11/29/20: Second chest tube in on yesterday. CXR is stable. ABG unchanged. Will likely increase PEEP now that chest tubes are in. No further paralytics. Still making good urine. Prognosis remains guarded. Will check chemistry to assess Potassium levels given peaked t's seen on monitor. 11/28/20: Second chest tube today. Once chest tube in, will likely increase PEEP to 18 and repeat gas about 2 hours after this. Continue paralytic today. No proning now that patient will have bilateral chest tubes. VEry guarded prognosis. 11/27/20: Spoke with surgery who have agreed to evaluate and placed chest tube on either right or left side pending CXR reading. Will monitor for 36-48 hours and if no resolution, will need chest tube placed on opposite side as well. Once placed, will likely paralyze again but hold on proning for now. Guarded prognosis. 11/26/20: Paralytics are off. Continue current level of sedation. Will prone for 12 hours today and repeat ABG in the am. Continue lung protective strategy. Guarded prognosis. 11/25/20: Prone again to 16 hours, will prone at 12-12:30. Continue paralytics for 24 more hours. Discussed the idea of permissive hypercapnea again today and as long as pH is above 7.2 no changes should be made to TV and or RR without discussing with physician. Continue to monitor urine output, guarded prognosis. Hold on lasix therapy today. 11/24/20: Prone again today. Will try 48 hours of paralyzing the patient to see if this will help with oxygenation. Will speak with RT's about permissive hypercapnea and that pH's of 7.2 and greater are ok. Continue high doses steroids. Prognosis is still very very guarded. If not improvement with paralytics, will attempt transfer. 11/23/20: Prone again today for 12 hours. Continue High Dose steroids. Hold on lasix given marginal BP's. Prognosis is very very guarded to poor. Will continue all supportive measures. If not able to wean from 100%, will attempt transfer for ECMO. 1. Pulm- Agree with concern for covid. Agree with empiric abx but procal is only mildly elevated. Await cultures. Continue bipap therapy for now but will need to monitor closely. [facility] has ordered CTA, but I spoke with pharmacy and we will empirically treat with BID lovenox therapy. COntinue empiric steroid therapy for COVID until studies back. Not sure that he will be able to prone on bipap therapy. Monitor volume status and run as dry as possible. 2. Renal-normal function but all electrolytes abnormal. HYponatremia and Hypochloremia volume up vs volume down. Sent BNP. Would suggest obtaning echo as well. Not sure what to make of elevated lactate unless that is from increased work of breathing or damage to other tissue unknown. May need to check LFT's and Coags as well. 3. Guarded Prognosis. CCT 31 minutes. Subjective Date of service: 01/06/21 Principal diagnosis: COVID-19 Interval history: Unfortunately patient is not doing well. Very Hypoxic. Large bleed last night. Objective Vital Signs - 12hr 01/05/21 01/05/21 01/05/21 23:30 23:40 23:53 Temperature 97.7 F Pulse Rate 88 89 94 H Pulse Rate [ From Monitor] Respiratory 30 H 30 H 30 H Rate Blood Pressure 104/62 104/62 100/65 O2 Sat by Pulse 97 95 95 Oximetry 01/05/21 01/06/21 01/06/21 23:55 00:00 00:30 Temperature 97.7 F Pulse Rate 87 89 Pulse Rate [ 87 From Monitor] Respiratory 30 H 30 H Rate Blood Pressure 104/66 101/63 O2 Sat by Pulse 96 96 Oximetry 01/06/21 01/06/21 01/06/21 00:38 01:00 01:30 Temperature Pulse Rate 94 H 97 H 99 H Pulse Rate [ From Monitor] Respiratory 30 H 30 H Rate Blood Pressure 104/66 117/74 120/75 O2 Sat by Pulse 96 96 95 Oximetry 01/06/21 01/06/21 01/06/21 02:00 02:30 03:00 Temperature Pulse Rate 99 H 101 H 112 H Pulse Rate [ From Monitor] Respiratory 30 H 30 H 30 H Rate Blood Pressure 125/78 123/72 116/75 O2 Sat by Pulse 95 94 93 Oximetry 01/06/21 01/06/21 01/06/21 03:30 04:00 04:30 Temperature 98.8 F Pulse Rate 113 H 107 H 113 H Pulse Rate [ 107 H From Monitor] Respiratory 30 H 30 H Rate Blood Pressure 100/79 99/75 122/69 O2 Sat by Pulse 94 91 53 L Oximetry 01/06/21 01/06/21 01/06/21 04:54 05:00 05:30 Temperature Pulse Rate 106 H 106 H 107 H Pulse Rate [ From Monitor] Respiratory 30 H 30 H Rate Blood Pressure 128/71 113/69 115/67 O2 Sat by Pulse 90 88 88 Oximetry 01/06/21 01/06/21 01/06/21 06:00 06:30 07:00 Temperature Pulse Rate 107 H 117 H 109 H Pulse Rate [ From Monitor] Respiratory 30 H 30 H 30 H Rate Blood Pressure 106/65 118/75 121/68 O2 Sat by Pulse 87 86 86 Oximetry 01/06/21 01/06/21 01/06/21 07:30 08:00 09:55 Temperature Pulse Rate 108 H 107 H 119 H Pulse Rate [ From Monitor] Respiratory 30 H 30 H Rate Blood Pressure 123/70 113/66 120/68 O2 Sat by Pulse 87 86 84 Oximetry Constitutional: lethargic, comatose, other (on vent orally intubated) ENT: other (Now intubated) Effort: other (vent support ) Ascultation: Bilateral: diminished breath sounds, rales, rhonchi, other (coarse BS bilaterally) Percussion: Bilateral: not dull Cardiovascular: regular rate and rhythm (tachy ) Gastrointestinal: soft, non-tender, non-distended Integumentary: normal Extremities: no cyanosis, no edema, pink and warm Neurologic: other (sedated) Psychiatric: other (sedated) CBC and BMP: 01/06/21 06:15 01/06/21 06:15 ABG, PT/INR, D-dimer: ABG ABG pH 7.271 (7.320-7.450) L 01/06/21 03:48 POC ABG pCO2 87.1 mmHg (32.0-48.0) H 01/06/21 03:48 ABG pCO2 93.9 mm Hg 01/05/21 Unknown POC ABG pO2 45.0 mmHg (83-108) L 01/06/21 03:48 ABG pO2 43.9 mm Hg (80.0-90.0) L 01/05/21 Unknown POC ABG HCO3 39.2 01/06/21 03:48 ABG O2 Saturation 79.3 (0-100) 01/06/21 03:48 PT/INR, D-dimer D-Dimer 926.11 ng/mlDDU (0-234) H 11/26/20 06:04 Abnormal lab findings: Abnormal Labs 11/15/20 11/15/20 11/15/20 10:39 10:39 10:39 WBC 14.3 H RBC 5.17 H Hgb Hct MCH MCHC RDW Plt Count Lymph % (Auto) 7.8 L [place] % (Auto) 7.6 H Lymph # (Auto) 1.1 L [place] # (Auto) 1.1 H Baso # (Auto) Seg Neutrophils % 83.3 H Seg Neuts % (Manual) Lymphocytes % (Manual) Nucleated RBC % Seg Neutrophils # 11.9 H Seg Neutrophils # Man Lymphocytes # (Manual) D-Dimer ABG pH POC ABG pCO2 POC ABG pO2 ABG pO2 ABG HCO3 ABG O2 Saturation ABG Base Excess ABG Hemoglobin ABG Oxyhemoglobin ABG Sodium ABG Potassium ABG Chloride ABG Glucose Oxyhemoglobin Carboxyhemoglobin Sodium 128 L Potassium Chloride 96.0 L Carbon Dioxide BUN Creatinine 0.7 L Glucose 238 H POC Glucose Hemoglobin A1c Lactic Acid 4.10 H* Calcium 7.0 L Magnesium Ferritin Total Bilirubin 1.40 H AST 49 H ALT 70 H Alkaline Phosphatase Lactate Dehydrogenase 663 H Total Creatine Kinase C-Reactive Protein 19.80 H Total Protein Albumin 2.9 L Triglycerides Arterial Blood Glucose Arterial Blood Ionized Calcium Ur Specific [place] Urine WBC (Auto) Vancomycin Trough Coronavirus (PCR) Crossmatch 11/15/20 11/15/20 11/15/20 10:39 10:39 11:20 WBC RBC Hgb Hct MCH MCHC RDW Plt Count Lymph % (Auto) [place] % (Auto) Lymph # (Auto) [place] # (Auto) Baso # (Auto) Seg Neutrophils % Seg Neuts % (Manual) Lymphocytes % (Manual) Nucleated RBC % Seg Neutrophils # Seg Neutrophils # Man Lymphocytes # (Manual) D-Dimer > 74907 H ABG pH POC ABG pCO2 29.9 L POC ABG pO2 137.3 H ABG pO2 ABG HCO3 ABG O2 Saturation ABG Base Excess ABG Hemoglobin ABG Oxyhemoglobin ABG Sodium 126.5 L ABG Potassium ABG Chloride ABG Glucose 248 H Oxyhemoglobin Carboxyhemoglobin Sodium Potassium Chloride Carbon Dioxide BUN Creatinine Glucose POC Glucose Hemoglobin A1c Lactic Acid Calcium Magnesium Ferritin 672.8 H Total Bilirubin AST ALT Alkaline Phosphatase Lactate Dehydrogenase Total Creatine Kinase C-Reactive Protein Total Protein Albumin Triglycerides Arterial Blood Glucose 248 H Arterial Blood Ionized Calcium 4.1 L Ur Specific [place] Urine WBC (Auto) Vancomycin Trough Coronavirus (PCR) Crossmatch 11/15/20 11/15/20 11/16/20 13:41 23:41 01:45 WBC RBC Hgb Hct MCH MCHC RDW Plt Count Lymph % (Auto) [place] % (Auto) Lymph # (Auto) [place] # (Auto) Baso # (Auto) Seg Neutrophils % Seg Neuts % (Manual) Lymphocytes % (Manual) Nucleated RBC % Seg Neutrophils # Seg Neutrophils # Man Lymphocytes # (Manual) D-Dimer ABG pH POC ABG pCO2 POC ABG pO2 ABG pO2 ABG HCO3 ABG O2 Saturation ABG Base Excess ABG Hemoglobin ABG Oxyhemoglobin ABG Sodium ABG Potassium ABG Chloride ABG Glucose Oxyhemoglobin Carboxyhemoglobin Sodium Potassium Chloride Carbon Dioxide BUN Creatinine Glucose POC Glucose 284 H Hemoglobin A1c Lactic Acid 2.30 H* Calcium Magnesium Ferritin Total Bilirubin AST ALT Alkaline Phosphatase Lactate Dehydrogenase Total Creatine Kinase C-Reactive Protein Total Protein Albumin Triglycerides Arterial Blood Glucose Arterial Blood Ionized Calcium Ur Specific [place] 1.037 H Urine WBC (Auto) Vancomycin Trough Coronavirus (PCR) Crossmatch 11/16/20 11/16/20 11/16/20 05:29 05:29 05:29 WBC 12.9 H RBC Hgb Hct MCH MCHC RDW Plt Count Lymph % (Auto) 4.5 L [place] % (Auto) Lymph # (Auto) 0.6 L [place] # (Auto) Baso # (Auto) 0.2 H Seg Neutrophils % 89.8 H Seg Neuts % (Manual) Lymphocytes % (Manual) Nucleated RBC % Seg Neutrophils # 11.5 H Seg Neutrophils # Man Lymphocytes # (Manual) D-Dimer ABG pH POC ABG pCO2 POC ABG pO2 ABG pO2 ABG HCO3 ABG O2 Saturation ABG Base Excess ABG Hemoglobin ABG Oxyhemoglobin ABG Sodium ABG Potassium ABG Chloride ABG Glucose Oxyhemoglobin Carboxyhemoglobin Sodium 131 L Potassium Chloride Carbon Dioxide 21 L BUN 23 H Creatinine 0.6 L Glucose 342 H POC Glucose Hemoglobin A1c Lactic Acid 2.60 H* Calcium 7.0 L Magnesium Ferritin Total Bilirubin AST ALT Alkaline Phosphatase Lactate Dehydrogenase Total Creatine Kinase C-Reactive Protein Total Protein Albumin 2.4 L Triglycerides Arterial Blood Glucose Arterial Blood Ionized Calcium Ur Specific [place] Urine WBC (Auto) Vancomycin Trough Coronavirus (PCR) Crossmatch 11/16/20 11/16/20 11/16/20 05:29 08:11 12:11 WBC RBC Hgb Hct MCH MCHC RDW Plt Count Lymph % (Auto) [place] % (Auto) Lymph # (Auto) [place] # (Auto) Baso # (Auto) Seg Neutrophils % Seg Neuts % (Manual) Lymphocytes % (Manual) Nucleated RBC % Seg Neutrophils # Seg Neutrophils # Man Lymphocytes # (Manual) D-Dimer ABG pH POC ABG pCO2 POC ABG pO2 ABG pO2 ABG HCO3 ABG O2 Saturation ABG Base Excess ABG Hemoglobin ABG Oxyhemoglobin ABG Sodium ABG Potassium ABG Chloride ABG Glucose Oxyhemoglobin Carboxyhemoglobin Sodium Potassium Chloride Carbon Dioxide BUN Creatinine Glucose POC Glucose 329 H 320 H Hemoglobin A1c 11.7 H Lactic Acid Calcium Magnesium Ferritin Total Bilirubin AST ALT Alkaline Phosphatase Lactate Dehydrogenase Total Creatine Kinase C-Reactive Protein Total Protein Albumin Triglycerides Arterial Blood Glucose Arterial Blood Ionized Calcium Ur Specific [place] Urine WBC (Auto) Vancomycin Trough Coronavirus (PCR) Crossmatch 11/16/20 11/16/20 11/16/20 16:13 21:29 Unknown WBC RBC Hgb Hct MCH MCHC RDW Plt Count Lymph % (Auto) [place] % (Auto) Lymph # (Auto) [place] # (Auto) Baso # (Auto) Seg Neutrophils % Seg Neuts % (Manual) Lymphocytes % (Manual) Nucleated RBC % Seg Neutrophils # Seg Neutrophils # Man Lymphocytes # (Manual) D-Dimer ABG pH POC ABG pCO2 POC ABG pO2 ABG pO2 ABG HCO3 ABG O2 Saturation ABG Base Excess ABG Hemoglobin ABG Oxyhemoglobin ABG Sodium ABG Potassium ABG Chloride ABG Glucose Oxyhemoglobin Carboxyhemoglobin Sodium Potassium Chloride Carbon Dioxide BUN Creatinine Glucose POC Glucose 257 H 376 H Hemoglobin A1c Lactic Acid Calcium Magnesium Ferritin Total Bilirubin AST ALT Alkaline Phosphatase Lactate Dehydrogenase Total Creatine Kinase C-Reactive Protein Total Protein Albumin Triglycerides Arterial Blood Glucose Arterial Blood Ionized Calcium Ur Specific [place] Urine WBC (Auto) Vancomycin Trough Coronavirus (PCR) Positive A Crossmatch 11/17/20 11/17/20 11/17/20 07:42 12:07 17:25 WBC RBC Hgb Hct MCH MCHC RDW Plt Count Lymph % (Auto) [place] % (Auto) Lymph # (Auto) [place] # (Auto) Baso # (Auto) Seg Neutrophils % Seg Neuts % (Manual) Lymphocytes % (Manual) Nucleated RBC % Seg Neutrophils # Seg Neutrophils # Man Lymphocytes # (Manual) D-Dimer ABG pH POC ABG pCO2 POC ABG pO2 ABG pO2 ABG HCO3 ABG O2 Saturation ABG Base Excess ABG Hemoglobin ABG Oxyhemoglobin ABG Sodium ABG Potassium ABG Chloride ABG Glucose Oxyhemoglobin Carboxyhemoglobin Sodium Potassium Chloride Carbon Dioxide BUN Creatinine Glucose POC Glucose 231 H 380 H 302 H Hemoglobin A1c Lactic Acid Calcium Magnesium Ferritin Total Bilirubin AST ALT Alkaline Phosphatase Lactate Dehydrogenase Total Creatine Kinase C-Reactive Protein Total Protein Albumin Triglycerides Arterial Blood Glucose Arterial Blood Ionized Calcium Ur Specific [place] Urine WBC (Auto) Vancomycin Trough Coronavirus (PCR) Crossmatch 11/17/20 11/18/20 11/18/20 21:53 04:25 07:45 WBC RBC Hgb Hct MCH MCHC RDW Plt Count Lymph % (Auto) [place] % (Auto) Lymph # (Auto) [place] # (Auto) Baso # (Auto) Seg Neutrophils % Seg Neuts % (Manual) Lymphocytes % (Manual) Nucleated RBC % Seg Neutrophils # Seg Neutrophils # Man Lymphocytes # (Manual) D-Dimer ABG pH POC ABG pCO2 POC ABG pO2 ABG pO2 ABG HCO3 ABG O2 Saturation ABG Base Excess ABG Hemoglobin ABG Oxyhemoglobin ABG Sodium ABG Potassium ABG Chloride ABG Glucose Oxyhemoglobin Carboxyhemoglobin Sodium 136 L Potassium Chloride Carbon Dioxide BUN 24 H Creatinine 0.6 L Glucose 212 H POC Glucose 293 H 216 H Hemoglobin A1c Lactic Acid Calcium 7.4 L Magnesium Ferritin Total Bilirubin AST 41 H ALT Alkaline Phosphatase 142 H Lactate Dehydrogenase Total Creatine Kinase C-Reactive Protein Total Protein Albumin 2.3 L Triglycerides Arterial Blood Glucose Arterial Blood Ionized Calcium Ur Specific [place] Urine WBC (Auto) Vancomycin Trough Coronavirus (PCR) Crossmatch 11/18/20 11/18/20 11/18/20 12:28 15:58 21:37 WBC RBC Hgb Hct MCH MCHC RDW Plt Count Lymph % (Auto) [place] % (Auto) Lymph # (Auto) [place] # (Auto) Baso # (Auto) Seg Neutrophils % Seg Neuts % (Manual) Lymphocytes % (Manual) Nucleated RBC % Seg Neutrophils # Seg Neutrophils # Man Lymphocytes # (Manual) D-Dimer ABG pH POC ABG pCO2 POC ABG pO2 ABG pO2 ABG HCO3 ABG O2 Saturation ABG Base Excess ABG Hemoglobin ABG Oxyhemoglobin ABG Sodium ABG Potassium ABG Chloride ABG Glucose Oxyhemoglobin Carboxyhemoglobin Sodium Potassium Chloride Carbon Dioxide BUN Creatinine Glucose POC Glucose 165 H 220 H 311 H Hemoglobin A1c Lactic Acid Calcium Magnesium Ferritin Total Bilirubin AST ALT Alkaline Phosphatase Lactate Dehydrogenase Total Creatine Kinase C-Reactive Protein Total Protein Albumin Triglycerides Arterial Blood Glucose Arterial Blood Ionized Calcium Ur Specific [place] Urine WBC (Auto) Vancomycin Trough Coronavirus (PCR) Crossmatch 11/19/20 11/19/20 11/19/20 05:35 07:40 12:39 WBC RBC Hgb Hct MCH MCHC RDW Plt Count Lymph % (Auto) [place] % (Auto) Lymph # (Auto) [place] # (Auto) Baso # (Auto) Seg Neutrophils % Seg Neuts % (Manual) Lymphocytes % (Manual) Nucleated RBC % Seg Neutrophils # Seg Neutrophils # Man Lymphocytes # (Manual) D-Dimer ABG pH POC ABG pCO2 POC ABG pO2 ABG pO2 ABG HCO3 ABG O2 Saturation ABG Base Excess ABG Hemoglobin ABG Oxyhemoglobin ABG Sodium ABG Potassium ABG Chloride ABG Glucose Oxyhemoglobin Carboxyhemoglobin Sodium 132 L Potassium Chloride Carbon Dioxide BUN 25 H Creatinine 0.5 L Glucose 179 H POC Glucose 149 H 306 H Hemoglobin A1c Lactic Acid Calcium 7.5 L Magnesium Ferritin Total Bilirubin AST ALT Alkaline Phosphatase 139 H Lactate Dehydrogenase Total Creatine Kinase C-Reactive Protein Total Protein Albumin 2.4 L Triglycerides Arterial Blood Glucose Arterial Blood Ionized Calcium Ur Specific [place] Urine WBC (Auto) Vancomycin Trough Coronavirus (PCR) Crossmatch 11/19/20 11/19/20 11/20/20 16:17 21:25 08:30 WBC RBC Hgb Hct MCH MCHC RDW Plt Count Lymph % (Auto) [place] % (Auto) Lymph # (Auto) [place] # (Auto) Baso # (Auto) Seg Neutrophils % Seg Neuts % (Manual) Lymphocytes % (Manual) Nucleated RBC % Seg Neutrophils # Seg Neutrophils # Man Lymphocytes # (Manual) D-Dimer ABG pH POC ABG pCO2 POC ABG pO2 ABG pO2 ABG HCO3 ABG O2 Saturation ABG Base Excess ABG Hemoglobin ABG Oxyhemoglobin ABG Sodium ABG Potassium ABG Chloride ABG Glucose Oxyhemoglobin Carboxyhemoglobin Sodium Potassium Chloride Carbon Dioxide BUN Creatinine Glucose POC Glucose 364 H 347 H 141 H Hemoglobin A1c Lactic Acid Calcium Magnesium Ferritin Total Bilirubin AST ALT Alkaline Phosphatase Lactate Dehydrogenase Total Creatine Kinase C-Reactive Protein Total Protein Albumin Triglycerides Arterial Blood Glucose Arterial Blood Ionized Calcium Ur Specific [place] Urine WBC (Auto) Vancomycin Trough Coronavirus (PCR) Crossmatch 11/20/20 11/20/20 11/20/20 08:50 11:32 16:19 WBC RBC Hgb Hct MCH MCHC RDW Plt Count Lymph % (Auto) [place] % (Auto) Lymph # (Auto) [place] # (Auto) Baso # (Auto) Seg Neutrophils % Seg Neuts % (Manual) Lymphocytes % (Manual) Nucleated RBC % Seg Neutrophils # Seg Neutrophils # Man Lymphocytes # (Manual) D-Dimer ABG pH POC ABG pCO2 POC ABG pO2 ABG pO2 ABG HCO3 ABG O2 Saturation ABG Base Excess ABG Hemoglobin ABG Oxyhemoglobin ABG Sodium ABG Potassium ABG Chloride ABG Glucose Oxyhemoglobin Carboxyhemoglobin Sodium 132 L Potassium Chloride 97.6 L Carbon Dioxide BUN 26 H Creatinine 0.5 L Glucose 201 H POC Glucose 296 H 327 H Hemoglobin A1c Lactic Acid Calcium 7.9 L Magnesium Ferritin Total Bilirubin AST ALT Alkaline Phosphatase 137 H Lactate Dehydrogenase Total Creatine Kinase C-Reactive Protein Total Protein Albumin 2.6 L Triglycerides Arterial Blood Glucose Arterial Blood Ionized Calcium Ur Specific [place] Urine WBC (Auto) Vancomycin Trough Coronavirus (PCR) Crossmatch 11/20/20 11/21/20 11/21/20 22:09 07:59 13:51 WBC RBC Hgb Hct MCH MCHC RDW Plt Count Lymph % (Auto) [place] % (Auto) Lymph # (Auto) [place] # (Auto) Baso # (Auto) Seg Neutrophils % Seg Neuts % (Manual) Lymphocytes % (Manual) Nucleated RBC % Seg Neutrophils # Seg Neutrophils # Man Lymphocytes # (Manual) D-Dimer ABG pH POC ABG pCO2 POC ABG pO2 ABG pO2 ABG HCO3 ABG O2 Saturation ABG Base Excess ABG Hemoglobin ABG Oxyhemoglobin ABG Sodium ABG Potassium ABG Chloride ABG Glucose Oxyhemoglobin Carboxyhemoglobin Sodium Potassium Chloride Carbon Dioxide BUN Creatinine Glucose POC Glucose 311 H 218 H 304 H Hemoglobin A1c Lactic Acid Calcium Magnesium Ferritin Total Bilirubin AST ALT Alkaline Phosphatase Lactate Dehydrogenase Total Creatine Kinase C-Reactive Protein Total Protein Albumin Triglycerides Arterial Blood Glucose Arterial Blood Ionized Calcium Ur Specific [place] Urine WBC (Auto) Vancomycin Trough Coronavirus (PCR) Crossmatch 11/21/20 11/21/20 11/21/20 16:09 21:34 23:00 WBC RBC Hgb Hct MCH MCHC RDW Plt Count Lymph % (Auto) [place] % (Auto) Lymph # (Auto) [place] # (Auto) Baso # (Auto) Seg Neutrophils % Seg Neuts % (Manual) Lymphocytes % (Manual) Nucleated RBC % Seg Neutrophils # Seg Neutrophils # Man Lymphocytes # (Manual) D-Dimer ABG pH 7.206 L POC ABG pCO2 59.3 H POC ABG pO2 76.7 L ABG pO2 ABG HCO3 ABG O2 Saturation ABG Base Excess ABG Hemoglobin ABG Oxyhemoglobin ABG Sodium 133.1 L ABG Potassium ABG Chloride ABG Glucose 320 H Oxyhemoglobin Carboxyhemoglobin Sodium Potassium Chloride Carbon Dioxide BUN Creatinine Glucose POC Glucose 239 H 279 H Hemoglobin A1c Lactic Acid Calcium Magnesium Ferritin Total Bilirubin AST ALT Alkaline Phosphatase Lactate Dehydrogenase Total Creatine Kinase C-Reactive Protein Total Protein Albumin Triglycerides Arterial Blood Glucose 320 H Arterial Blood Ionized Calcium Ur Specific [place] Urine WBC (Auto) Vancomycin Trough Coronavirus (PCR) Crossmatch 11/22/20 11/22/20 11/22/20 04:52 04:52 04:52 WBC RBC Hgb Hct MCH MCHC RDW Plt Count Lymph % (Auto) [place] % (Auto) Lymph # (Auto) [place] # (Auto) Baso # (Auto) Seg Neutrophils % Seg Neuts % (Manual) Lymphocytes % (Manual) Nucleated RBC % Seg Neutrophils # Seg Neutrophils # Man Lymphocytes # (Manual) D-Dimer 1858.36 H ABG pH POC ABG pCO2 POC ABG pO2 ABG pO2 ABG HCO3 ABG O2 Saturation ABG Base Excess ABG Hemoglobin ABG Oxyhemoglobin ABG Sodium ABG Potassium ABG Chloride ABG Glucose Oxyhemoglobin Carboxyhemoglobin Sodium Potassium Chloride Carbon Dioxide BUN Creatinine Glucose POC Glucose Hemoglobin A1c Lactic Acid Calcium Magnesium Ferritin 734.2 H Total Bilirubin AST ALT Alkaline Phosphatase Lactate Dehydrogenase 404 H Total Creatine Kinase C-Reactive Protein 2.80 H Total Protein Albumin Triglycerides Arterial Blood Glucose Arterial Blood Ionized Calcium Ur Specific [place] Urine WBC (Auto) Vancomycin Trough Coronavirus (PCR) Crossmatch 11/22/20 11/22/20 11/22/20 05:12 05:39 11:50 WBC RBC Hgb Hct MCH MCHC RDW Plt Count Lymph % (Auto) [place] % (Auto) Lymph # (Auto) [place] # (Auto) Baso # (Auto) Seg Neutrophils % Seg Neuts % (Manual) Lymphocytes % (Manual) Nucleated RBC % Seg Neutrophils # Seg Neutrophils # Man Lymphocytes # (Manual) D-Dimer ABG pH POC ABG pCO2 POC ABG pO2 51.0 L ABG pO2 ABG HCO3 ABG O2 Saturation ABG Base Excess ABG Hemoglobin ABG Oxyhemoglobin ABG Sodium 131.2 L ABG Potassium 4.6 H ABG Chloride ABG Glucose 317 H Oxyhemoglobin Carboxyhemoglobin Sodium Potassium Chloride Carbon Dioxide BUN Creatinine Glucose POC Glucose 340 H 417 H Hemoglobin A1c Lactic Acid Calcium Magnesium Ferritin Total Bilirubin AST ALT Alkaline Phosphatase Lactate Dehydrogenase Total Creatine Kinase C-Reactive Protein Total Protein Albumin Triglycerides Arterial Blood Glucose 317 H Arterial Blood Ionized Calcium 4.4 L Ur Specific [place] Urine WBC (Auto) Vancomycin Trough Coronavirus (PCR) Crossmatch 11/22/20 11/22/20 11/22/20 12:22 12:22 17:10 WBC 14.4 H RBC Hgb Hct MCH MCHC RDW Plt Count Lymph % (Auto) [place] % (Auto) Lymph # (Auto) [place] # (Auto) Baso # (Auto) Seg Neutrophils % Seg Neuts % (Manual) 98.0 H Lymphocytes % (Manual) Nucleated RBC % Seg Neutrophils # Seg Neutrophils # Man 14.1 H Lymphocytes # (Manual) 0.0 L D-Dimer ABG pH POC ABG pCO2 POC ABG pO2 ABG pO2 ABG HCO3 ABG O2 Saturation ABG Base Excess ABG Hemoglobin ABG Oxyhemoglobin ABG Sodium ABG Potassium ABG Chloride ABG Glucose Oxyhemoglobin Carboxyhemoglobin Sodium 132 L Potassium Chloride Carbon Dioxide BUN 36 H Creatinine 0.6 L Glucose 219 H POC Glucose 157 H Hemoglobin A1c Lactic Acid Calcium 7.2 L Magnesium Ferritin Total Bilirubin AST ALT Alkaline Phosphatase Lactate Dehydrogenase Total Creatine Kinase C-Reactive Protein Total Protein Albumin Triglycerides Arterial Blood Glucose Arterial Blood Ionized Calcium Ur Specific [place] Urine WBC (Auto) Vancomycin Trough Coronavirus (PCR) Crossmatch 11/22/20 11/22/20 11/22/20 18:33 21:44 23:47 WBC RBC Hgb Hct MCH MCHC RDW Plt Count Lymph % (Auto) [place] % (Auto) Lymph # (Auto) [place] # (Auto) Baso # (Auto) Seg Neutrophils % Seg Neuts % (Manual) Lymphocytes % (Manual) Nucleated RBC % Seg Neutrophils # Seg Neutrophils # Man Lymphocytes # (Manual) D-Dimer ABG pH POC ABG pCO2 POC ABG pO2 60.8 L ABG pO2 ABG HCO3 ABG O2 Saturation ABG Base Excess ABG Hemoglobin ABG Oxyhemoglobin 88.1 L ABG Sodium 135.1 L ABG Potassium ABG Chloride ABG Glucose 141 H Oxyhemoglobin Carboxyhemoglobin Sodium Potassium Chloride Carbon Dioxide BUN Creatinine Glucose POC Glucose 117 H 123 H Hemoglobin A1c Lactic Acid Calcium Magnesium Ferritin Total Bilirubin AST ALT Alkaline Phosphatase Lactate Dehydrogenase Total Creatine Kinase C-Reactive Protein Total Protein Albumin Triglycerides Arterial Blood Glucose 141 H Arterial Blood Ionized Calcium Ur Specific [place] Urine WBC (Auto) Vancomycin Trough Coronavirus (PCR) Crossmatch 11/23/20 11/23/20 11/23/20 04:00 04:00 05:23 WBC 14.4 H RBC Hgb Hct MCH MCHC RDW Plt Count Lymph % (Auto) [place] % (Auto) Lymph # (Auto) [place] # (Auto) Baso # (Auto) Seg Neutrophils % Seg Neuts % (Manual) Lymphocytes % (Manual) Nucleated RBC % Seg Neutrophils # Seg Neutrophils # Man Lymphocytes # (Manual) D-Dimer ABG pH POC ABG pCO2 POC ABG pO2 ABG pO2 ABG HCO3 ABG O2 Saturation ABG Base Excess ABG Hemoglobin ABG Oxyhemoglobin ABG Sodium ABG Potassium ABG Chloride ABG Glucose Oxyhemoglobin Carboxyhemoglobin Sodium 136 L Potassium Chloride Carbon Dioxide BUN 33 H Creatinine 0.6 L Glucose 115 H POC Glucose 173 H Hemoglobin A1c Lactic Acid Calcium 7.1 L Magnesium Ferritin Total Bilirubin AST 64 H ALT 75 H Alkaline Phosphatase Lactate Dehydrogenase Total Creatine Kinase C-Reactive Protein Total Protein 5.9 L D Albumin 2.4 L Triglycerides Arterial Blood Glucose Arterial Blood Ionized Calcium Ur Specific [place] Urine WBC (Auto) Vancomycin Trough Coronavirus (PCR) Crossmatch 11/23/20 11/23/20 11/23/20 05:40 11:27 17:10 WBC RBC Hgb Hct MCH MCHC RDW Plt Count Lymph % (Auto) [place] % (Auto) Lymph # (Auto) [place] # (Auto) Baso # (Auto) Seg Neutrophils % Seg Neuts % (Manual) Lymphocytes % (Manual) Nucleated RBC % Seg Neutrophils # Seg Neutrophils # Man Lymphocytes # (Manual) D-Dimer ABG pH POC ABG pCO2 POC ABG pO2 56.5 L ABG pO2 ABG HCO3 ABG O2 Saturation ABG Base Excess ABG Hemoglobin ABG Oxyhemoglobin ABG Sodium ABG Potassium ABG Chloride 109.0 H ABG Glucose 114 H Oxyhemoglobin Carboxyhemoglobin Sodium Potassium Chloride Carbon Dioxide BUN Creatinine Glucose POC Glucose 114 H 136 H Hemoglobin A1c Lactic Acid Calcium Magnesium Ferritin Total Bilirubin AST ALT Alkaline Phosphatase Lactate Dehydrogenase Total Creatine Kinase C-Reactive Protein Total Protein Albumin Triglycerides Arterial Blood Glucose 114 H Arterial Blood Ionized Calcium 4.5 L Ur Specific [place] Urine WBC (Auto) Vancomycin Trough Coronavirus (PCR) Crossmatch 11/24/20 11/24/20 11/24/20 05:14 05:14 05:14 WBC RBC Hgb Hct MCH MCHC RDW Plt Count Lymph % (Auto) [place] % (Auto) Lymph # (Auto) [place] # (Auto) Baso # (Auto) Seg Neutrophils % Seg Neuts % (Manual) Lymphocytes % (Manual) Nucleated RBC % Seg Neutrophils # Seg Neutrophils # Man Lymphocytes # (Manual) D-Dimer 1433.39 H ABG pH POC ABG pCO2 POC ABG pO2 ABG pO2 ABG HCO3 ABG O2 Saturation ABG Base Excess ABG Hemoglobin ABG Oxyhemoglobin ABG Sodium ABG Potassium ABG Chloride ABG Glucose Oxyhemoglobin Carboxyhemoglobin Sodium Potassium Chloride Carbon Dioxide BUN Creatinine Glucose POC Glucose Hemoglobin A1c Lactic Acid Calcium Magnesium Ferritin 997.5 H Total Bilirubin AST ALT Alkaline Phosphatase Lactate Dehydrogenase 463 H Total Creatine Kinase C-Reactive Protein Total Protein Albumin Triglycerides Arterial Blood Glucose Arterial Blood Ionized Calcium Ur Specific [place] Urine WBC (Auto) Vancomycin Trough Coronavirus (PCR) Crossmatch 11/24/20 11/24/20 11/24/20 05:31 05:36 12:05 WBC RBC Hgb Hct MCH MCHC RDW Plt Count Lymph % (Auto) [place] % (Auto) Lymph # (Auto) [place] # (Auto) Baso # (Auto) Seg Neutrophils % Seg Neuts % (Manual) Lymphocytes % (Manual) Nucleated RBC % Seg Neutrophils # Seg Neutrophils # Man Lymphocytes # (Manual) D-Dimer ABG pH POC ABG pCO2 POC ABG pO2 57.2 L ABG pO2 ABG HCO3 ABG O2 Saturation ABG Base Excess ABG Hemoglobin ABG Oxyhemoglobin ABG Sodium ABG Potassium ABG Chloride ABG Glucose 180 H Oxyhemoglobin Carboxyhemoglobin Sodium Potassium Chloride Carbon Dioxide BUN Creatinine Glucose POC Glucose 199 H 143 H Hemoglobin A1c Lactic Acid Calcium Magnesium Ferritin Total Bilirubin AST ALT Alkaline Phosphatase Lactate Dehydrogenase Total Creatine Kinase C-Reactive Protein Total Protein Albumin Triglycerides Arterial Blood Glucose 180 H Arterial Blood Ionized Calcium 4.5 L Ur Specific [place] Urine WBC (Auto) Vancomycin Trough Coronavirus (PCR) Crossmatch 11/24/20 11/24/20 11/24/20 12:14 17:47 23:47 WBC RBC Hgb Hct MCH MCHC RDW Plt Count Lymph % (Auto) [place] % (Auto) Lymph # (Auto) [place] # (Auto) Baso # (Auto) Seg Neutrophils % Seg Neuts % (Manual) Lymphocytes % (Manual) Nucleated RBC % Seg Neutrophils # Seg Neutrophils # Man Lymphocytes # (Manual) D-Dimer ABG pH 7.261 L POC ABG pCO2 59.7 H POC ABG pO2 75.7 L ABG pO2 ABG HCO3 ABG O2 Saturation ABG Base Excess ABG Hemoglobin ABG Oxyhemoglobin 92.5 L ABG Sodium ABG Potassium ABG Chloride 108.0 H ABG Glucose 150 H Oxyhemoglobin Carboxyhemoglobin Sodium Potassium Chloride Carbon Dioxide BUN Creatinine Glucose POC Glucose 223 H 179 H Hemoglobin A1c Lactic Acid Calcium Magnesium Ferritin Total Bilirubin AST ALT Alkaline Phosphatase Lactate Dehydrogenase Total Creatine Kinase C-Reactive Protein Total Protein Albumin Triglycerides Arterial Blood Glucose 150 H Arterial Blood Ionized Calcium Ur Specific [place] Urine WBC (Auto) Vancomycin Trough Coronavirus (PCR) Crossmatch 11/25/20 11/25/20 11/25/20 03:29 05:07 05:15 WBC 13.9 H RBC Hgb Hct MCH MCHC RDW Plt Count Lymph % (Auto) [place] % (Auto) Lymph # (Auto) [place] # (Auto) Baso # (Auto) Seg Neutrophils % Seg Neuts % (Manual) 97.0 H Lymphocytes % (Manual) Nucleated RBC % Seg Neutrophils # Seg Neutrophils # Man 13.5 H Lymphocytes # (Manual) 0.0 L D-Dimer ABG pH 7.272 L POC ABG pCO2 69.0 H POC ABG pO2 132.9 H ABG pO2 ABG HCO3 ABG O2 Saturation ABG Base Excess ABG Hemoglobin ABG Oxyhemoglobin ABG Sodium ABG Potassium ABG Chloride ABG Glucose 174 H Oxyhemoglobin Carboxyhemoglobin Sodium Potassium Chloride Carbon Dioxide BUN Creatinine Glucose POC Glucose 168 H Hemoglobin A1c Lactic Acid Calcium Magnesium Ferritin Total Bilirubin AST ALT Alkaline Phosphatase Lactate Dehydrogenase Total Creatine Kinase C-Reactive Protein Total Protein Albumin Triglycerides Arterial Blood Glucose 174 H Arterial Blood Ionized Calcium Ur Specific [place] Urine WBC (Auto) Vancomycin Trough Coronavirus (PCR) Crossmatch 11/25/20 11/25/20 11/25/20 05:15 11:25 17:35 WBC RBC Hgb Hct MCH MCHC RDW Plt Count Lymph % (Auto) [place] % (Auto) Lymph # (Auto) [place] # (Auto) Baso # (Auto) Seg Neutrophils % Seg Neuts % (Manual) Lymphocytes % (Manual) Nucleated RBC % Seg Neutrophils # Seg Neutrophils # Man Lymphocytes # (Manual) D-Dimer ABG pH POC ABG pCO2 POC ABG pO2 ABG pO2 ABG HCO3 ABG O2 Saturation ABG Base Excess ABG Hemoglobin ABG Oxyhemoglobin ABG Sodium ABG Potassium ABG Chloride ABG Glucose Oxyhemoglobin Carboxyhemoglobin Sodium Potassium Chloride Carbon Dioxide BUN 29 H Creatinine 0.5 L Glucose 161 H POC Glucose 224 H 228 H Hemoglobin A1c Lactic Acid Calcium 7.8 L Magnesium Ferritin Total Bilirubin AST 89 H ALT 129 H Alkaline Phosphatase Lactate Dehydrogenase Total Creatine Kinase C-Reactive Protein Total Protein 5.8 L Albumin 2.5 L Triglycerides Arterial Blood Glucose Arterial Blood Ionized Calcium Ur Specific [place] Urine WBC (Auto) Vancomycin Trough Coronavirus (PCR) Crossmatch 11/25/20 11/25/20 11/26/20 20:45 23:28 04:00 WBC RBC Hgb Hct MCH MCHC RDW Plt Count Lymph % (Auto) [place] % (Auto) Lymph # (Auto) [place] # (Auto) Baso # (Auto) Seg Neutrophils % Seg Neuts % (Manual) Lymphocytes % (Manual) Nucleated RBC % Seg Neutrophils # Seg Neutrophils # Man Lymphocytes # (Manual) D-Dimer ABG pH POC ABG pCO2 POC ABG pO2 ABG pO2 ABG HCO3 ABG O2 Saturation ABG Base Excess ABG Hemoglobin ABG Oxyhemoglobin ABG Sodium ABG Potassium ABG Chloride ABG Glucose Oxyhemoglobin Carboxyhemoglobin Sodium Potassium Chloride Carbon Dioxide BUN Creatinine Glucose POC Glucose 177 H 243 H Hemoglobin A1c Lactic Acid Calcium Magnesium Ferritin 778.8 H Total Bilirubin AST ALT Alkaline Phosphatase Lactate Dehydrogenase Total Creatine Kinase C-Reactive Protein Total Protein Albumin Triglycerides Arterial Blood Glucose Arterial Blood Ionized Calcium Ur Specific [place] Urine WBC (Auto) Vancomycin Trough Coronavirus (PCR) Crossmatch 11/26/20 11/26/20 11/26/20 04:00 05:34 06:04 WBC RBC Hgb Hct MCH MCHC RDW Plt Count Lymph % (Auto) [place] % (Auto) Lymph # (Auto) [place] # (Auto) Baso # (Auto) Seg Neutrophils % Seg Neuts % (Manual) Lymphocytes % (Manual) Nucleated RBC % Seg Neutrophils # Seg Neutrophils # Man Lymphocytes # (Manual) D-Dimer 926.11 H ABG pH POC ABG pCO2 POC ABG pO2 ABG pO2 ABG HCO3 ABG O2 Saturation ABG Base Excess ABG Hemoglobin ABG Oxyhemoglobin ABG Sodium ABG Potassium ABG Chloride ABG Glucose Oxyhemoglobin Carboxyhemoglobin Sodium Potassium Chloride Carbon Dioxide 39 H D BUN 30 H Creatinine 0.5 L Glucose 193 H POC Glucose 178 H Hemoglobin A1c Lactic Acid Calcium 7.7 L Magnesium Ferritin Total Bilirubin AST 65 H ALT 132 H Alkaline Phosphatase Lactate Dehydrogenase 288 H Total Creatine Kinase C-Reactive Protein 1.40 H Total Protein 5.7 L Albumin 2.4 L Triglycerides Arterial Blood Glucose Arterial Blood Ionized Calcium Ur Specific [place] Urine WBC (Auto) Vancomycin Trough Coronavirus (PCR) Crossmatch 11/26/20 11/26/20 11/26/20 06:04 08:47 11:20 WBC 12.4 H RBC Hgb Hct MCH MCHC RDW Plt Count Lymph % (Auto) [place] % (Auto) Lymph # (Auto) [place] # (Auto) Baso # (Auto) Seg Neutrophils % Seg Neuts % (Manual) 98.0 H Lymphocytes % (Manual) 1.0 L Nucleated RBC % Seg Neutrophils # Seg Neutrophils # Man 12.2 H Lymphocytes # (Manual) 0.1 L D-Dimer ABG pH POC ABG pCO2 75.2 H POC ABG pO2 61.9 L ABG pO2 ABG HCO3 ABG O2 Saturation ABG Base Excess ABG Hemoglobin ABG Oxyhemoglobin 90.3 L ABG Sodium ABG Potassium ABG Chloride ABG Glucose 243 H Oxyhemoglobin Carboxyhemoglobin Sodium Potassium Chloride Carbon Dioxide BUN Creatinine Glucose POC Glucose 255 H Hemoglobin A1c Lactic Acid Calcium Magnesium Ferritin Total Bilirubin AST ALT Alkaline Phosphatase Lactate Dehydrogenase Total Creatine Kinase C-Reactive Protein Total Protein Albumin Triglycerides Arterial Blood Glucose 243 H Arterial Blood Ionized Calcium Ur Specific [place] Urine WBC (Auto) Vancomycin Trough Coronavirus (PCR) Crossmatch 11/26/20 11/26/20 11/26/20 16:20 17:15 23:41 WBC RBC Hgb Hct MCH MCHC RDW Plt Count Lymph % (Auto) [place] % (Auto) Lymph # (Auto) [place] # (Auto) Baso # (Auto) Seg Neutrophils % Seg Neuts % (Manual) Lymphocytes % (Manual) Nucleated RBC % Seg Neutrophils # Seg Neutrophils # Man Lymphocytes # (Manual) D-Dimer ABG pH POC ABG pCO2 66.6 H POC ABG pO2 78.1 L ABG pO2 ABG HCO3 ABG O2 Saturation ABG Base Excess ABG Hemoglobin ABG Oxyhemoglobin ABG Sodium ABG Potassium ABG Chloride ABG Glucose 244 H Oxyhemoglobin Carboxyhemoglobin Sodium Potassium Chloride Carbon Dioxide BUN Creatinine Glucose POC Glucose 219 H 210 H Hemoglobin A1c Lactic Acid Calcium Magnesium Ferritin Total Bilirubin AST ALT Alkaline Phosphatase Lactate Dehydrogenase Total Creatine Kinase C-Reactive Protein Total Protein Albumin Triglycerides Arterial Blood Glucose 244 H Arterial Blood Ionized Calcium Ur Specific [place] Urine WBC (Auto) Vancomycin Trough Coronavirus (PCR) Crossmatch 11/27/20 11/27/20 11/27/20 04:46 05:38 06:25 WBC 13.8 H RBC Hgb Hct MCH MCHC RDW Plt Count Lymph % (Auto) 2.0 L [place] % (Auto) Lymph # (Auto) 0.3 L [place] # (Auto) Baso # (Auto) Seg Neutrophils % Seg Neuts % (Manual) 96.0 H Lymphocytes % (Manual) Nucleated RBC % Seg Neutrophils # 12.7 H Seg Neutrophils # Man 13.2 H Lymphocytes # (Manual) 0.0 L D-Dimer ABG pH POC ABG pCO2 63.0 H POC ABG pO2 53.6 L ABG pO2 ABG HCO3 ABG O2 Saturation ABG Base Excess ABG Hemoglobin ABG Oxyhemoglobin 87.8 L ABG Sodium 115.4 L ABG Potassium ABG Chloride ABG Glucose 219 H Oxyhemoglobin Carboxyhemoglobin Sodium Potassium Chloride Carbon Dioxide BUN Creatinine Glucose POC Glucose 227 H Hemoglobin A1c Lactic Acid Calcium Magnesium Ferritin Total Bilirubin AST ALT Alkaline Phosphatase Lactate Dehydrogenase Total Creatine Kinase C-Reactive Protein Total Protein Albumin Triglycerides Arterial Blood Glucose 219 H Arterial Blood Ionized Calcium Ur Specific [place] Urine WBC (Auto) Vancomycin Trough Coronavirus (PCR) Crossmatch 11/27/20 11/27/20 11/27/20 06:25 18:05 23:29 WBC RBC Hgb Hct MCH MCHC RDW Plt Count Lymph % (Auto) [place] % (Auto) Lymph # (Auto) [place] # (Auto) Baso # (Auto) Seg Neutrophils % Seg Neuts % (Manual) Lymphocytes % (Manual) Nucleated RBC % Seg Neutrophils # Seg Neutrophils # Man Lymphocytes # (Manual) D-Dimer ABG pH POC ABG pCO2 POC ABG pO2 ABG pO2 ABG HCO3 ABG O2 Saturation ABG Base Excess ABG Hemoglobin ABG Oxyhemoglobin ABG Sodium ABG Potassium ABG Chloride ABG Glucose Oxyhemoglobin Carboxyhemoglobin Sodium Potassium Chloride Carbon Dioxide 38 H BUN 34 H Creatinine 0.4 L Glucose 243 H POC Glucose 329 H 227 H Hemoglobin A1c Lactic Acid Calcium 7.9 L Magnesium Ferritin Total Bilirubin AST 50 H ALT 110 H Alkaline Phosphatase Lactate Dehydrogenase Total Creatine Kinase C-Reactive Protein Total Protein 6.1 L Albumin 2.4 L Triglycerides Arterial Blood Glucose Arterial Blood Ionized Calcium Ur Specific [place] Urine WBC (Auto) Vancomycin Trough Coronavirus (PCR) Crossmatch 11/28/20 11/28/20 11/28/20 03:45 03:45 03:46 WBC 12.2 H RBC Hgb Hct MCH MCHC RDW Plt Count Lymph % (Auto) [place] % (Auto) Lymph # (Auto) [place] # (Auto) Baso # (Auto) Seg Neutrophils % Seg Neuts % (Manual) 93.0 H Lymphocytes % (Manual) 2.0 L Nucleated RBC % Seg Neutrophils # Seg Neutrophils # Man 11.3 H Lymphocytes # (Manual) 0.2 L D-Dimer ABG pH POC ABG pCO2 68.4 H POC ABG pO2 55.4 L ABG pO2 ABG HCO3 ABG O2 Saturation ABG Base Excess ABG Hemoglobin ABG Oxyhemoglobin ABG Sodium ABG Potassium ABG Chloride ABG Glucose 197 H Oxyhemoglobin Carboxyhemoglobin Sodium Potassium Chloride Carbon Dioxide 36 H BUN 37 H Creatinine 0.4 L Glucose 194 H POC Glucose Hemoglobin A1c Lactic Acid Calcium 8.1 L Magnesium Ferritin Total Bilirubin AST ALT 86 H Alkaline Phosphatase Lactate Dehydrogenase Total Creatine Kinase C-Reactive Protein Total Protein 6.0 L Albumin 2.3 L Triglycerides Arterial Blood Glucose 197 H Arterial Blood Ionized Calcium Ur Specific [place] Urine WBC (Auto) Vancomycin Trough Coronavirus (PCR) Crossmatch 11/28/20 11/28/20 11/29/20 05:24 12:21 04:41 WBC RBC Hgb Hct MCH MCHC RDW Plt Count Lymph % (Auto) [place] % (Auto) Lymph # (Auto) [place] # (Auto) Baso # (Auto) Seg Neutrophils % Seg Neuts % (Manual) Lymphocytes % (Manual) Nucleated RBC % Seg Neutrophils # Seg Neutrophils # Man Lymphocytes # (Manual) D-Dimer ABG pH POC ABG pCO2 55.1 H POC ABG pO2 53.6 L ABG pO2 ABG HCO3 ABG O2 Saturation ABG Base Excess ABG Hemoglobin ABG Oxyhemoglobin 87.1 L ABG Sodium 131.2 L ABG Potassium ABG Chloride ABG Glucose 164 H Oxyhemoglobin Carboxyhemoglobin Sodium Potassium Chloride Carbon Dioxide BUN Creatinine Glucose POC Glucose 173 H 126 H Hemoglobin A1c Lactic Acid Calcium Magnesium Ferritin Total Bilirubin AST ALT Alkaline Phosphatase Lactate Dehydrogenase Total Creatine Kinase C-Reactive Protein Total Protein Albumin Triglycerides Arterial Blood Glucose 164 H Arterial Blood Ionized Calcium 4.4 L Ur Specific [place] Urine WBC (Auto) Vancomycin Trough Coronavirus (PCR) Crossmatch 11/29/20 11/29/20 11/29/20 05:29 12:41 13:28 WBC RBC Hgb Hct MCH MCHC RDW Plt Count Lymph % (Auto) [place] % (Auto) Lymph # (Auto) [place] # (Auto) Baso # (Auto) Seg Neutrophils % Seg Neuts % (Manual) Lymphocytes % (Manual) Nucleated RBC % Seg Neutrophils # Seg Neutrophils # Man Lymphocytes # (Manual) D-Dimer ABG pH POC ABG pCO2 POC ABG pO2 ABG pO2 ABG HCO3 ABG O2 Saturation ABG Base Excess ABG Hemoglobin ABG Oxyhemoglobin ABG Sodium ABG Potassium ABG Chloride ABG Glucose Oxyhemoglobin Carboxyhemoglobin Sodium Potassium Chloride Carbon Dioxide 40 H BUN 32 H Creatinine 0.4 L Glucose 274 H POC Glucose 173 H 257 H Hemoglobin A1c Lactic Acid Calcium 7.2 L Magnesium Ferritin Total Bilirubin AST 57 H ALT 102 H Alkaline Phosphatase Lactate Dehydrogenase Total Creatine Kinase C-Reactive Protein Total Protein 5.7 L Albumin 2.1 L Triglycerides Arterial Blood Glucose Arterial Blood Ionized Calcium Ur Specific [place] Urine WBC (Auto) Vancomycin Trough Coronavirus (PCR) Crossmatch 11/29/20 11/29/20 11/29/20 15:40 17:36 21:26 WBC RBC Hgb Hct MCH MCHC RDW Plt Count Lymph % (Auto) [place] % (Auto) Lymph # (Auto) [place] # (Auto) Baso # (Auto) Seg Neutrophils % Seg Neuts % (Manual) Lymphocytes % (Manual) Nucleated RBC % Seg Neutrophils # Seg Neutrophils # Man Lymphocytes # (Manual) D-Dimer ABG pH POC ABG pCO2 POC ABG pO2 ABG pO2 ABG HCO3 ABG O2 Saturation ABG Base Excess ABG Hemoglobin ABG Oxyhemoglobin ABG Sodium ABG Potassium ABG Chloride ABG Glucose Oxyhemoglobin Carboxyhemoglobin Sodium Potassium Chloride Carbon Dioxide BUN Creatinine Glucose POC Glucose 240 H 244 H Hemoglobin A1c Lactic Acid Calcium Magnesium Ferritin Total Bilirubin AST ALT Alkaline Phosphatase Lactate Dehydrogenase Total Creatine Kinase C-Reactive Protein Total Protein Albumin Triglycerides Arterial Blood Glucose Arterial Blood Ionized Calcium Ur Specific [place] Urine WBC (Auto) Vancomycin Trough 4.0 L Coronavirus (PCR) Crossmatch 11/29/20 11/30/20 11/30/20 23:26 03:30 03:30 WBC RBC Hgb Hct MCH MCHC RDW Plt Count Lymph % (Auto) [place] % (Auto) Lymph # (Auto) [place] # (Auto) Baso # (Auto) Seg Neutrophils % Seg Neuts % (Manual) 97.0 H Lymphocytes % (Manual) 1.0 L Nucleated RBC % Seg Neutrophils # Seg Neutrophils # Man 9.9 H Lymphocytes # (Manual) 0.1 L D-Dimer ABG pH POC ABG pCO2 POC ABG pO2 ABG pO2 ABG HCO3 ABG O2 Saturation ABG Base Excess ABG Hemoglobin ABG Oxyhemoglobin ABG Sodium ABG Potassium ABG Chloride ABG Glucose Oxyhemoglobin Carboxyhemoglobin Sodium Potassium Chloride Carbon Dioxide 38 H BUN 34 H Creatinine 0.4 L Glucose 305 H POC Glucose 283 H Hemoglobin A1c Lactic Acid Calcium 7.6 L Magnesium Ferritin Total Bilirubin AST ALT 89 H Alkaline Phosphatase Lactate Dehydrogenase Total Creatine Kinase C-Reactive Protein Total Protein 6.0 L Albumin 2.3 L Triglycerides Arterial Blood Glucose Arterial Blood Ionized Calcium Ur Specific [place] Urine WBC (Auto) Vancomycin Trough Coronavirus (PCR) Crossmatch 11/30/20 11/30/20 11/30/20 03:57 05:22 12:05 WBC RBC Hgb Hct MCH MCHC RDW Plt Count Lymph % (Auto) [place] % (Auto) Lymph # (Auto) [place] # (Auto) Baso # (Auto) Seg Neutrophils % Seg Neuts % (Manual) Lymphocytes % (Manual) Nucleated RBC % Seg Neutrophils # Seg Neutrophils # Man Lymphocytes # (Manual) D-Dimer ABG pH POC ABG pCO2 60.8 H POC ABG pO2 51.1 L ABG pO2 ABG HCO3 ABG O2 Saturation ABG Base Excess ABG Hemoglobin ABG Oxyhemoglobin 84.6 L ABG Sodium ABG Potassium ABG Chloride ABG Glucose 315 H Oxyhemoglobin Carboxyhemoglobin Sodium Potassium Chloride Carbon Dioxide BUN Creatinine Glucose POC Glucose 295 H 413 H Hemoglobin A1c Lactic Acid Calcium Magnesium Ferritin Total Bilirubin AST ALT Alkaline Phosphatase Lactate Dehydrogenase Total Creatine Kinase C-Reactive Protein Total Protein Albumin Triglycerides Arterial Blood Glucose 315 H Arterial Blood Ionized Calcium 4.5 L Ur Specific [place] Urine WBC (Auto) Vancomycin Trough Coronavirus (PCR) Crossmatch 11/30/20 11/30/20 12/01/20 17:24 23:25 02:14 WBC RBC Hgb Hct MCH MCHC RDW Plt Count Lymph % (Auto) [place] % (Auto) Lymph # (Auto) [place] # (Auto) Baso # (Auto) Seg Neutrophils % Seg Neuts % (Manual) Lymphocytes % (Manual) Nucleated RBC % Seg Neutrophils # Seg Neutrophils # Man Lymphocytes # (Manual) D-Dimer ABG pH 7.278 L POC ABG pCO2 78.1 H POC ABG pO2 79.5 L ABG pO2 ABG HCO3 ABG O2 Saturation ABG Base Excess ABG Hemoglobin 11.6 L ABG Oxyhemoglobin ABG Sodium 134.5 L ABG Potassium 4.6 H ABG Chloride ABG Glucose 286 H Oxyhemoglobin Carboxyhemoglobin Sodium Potassium Chloride Carbon Dioxide BUN Creatinine Glucose POC Glucose 305 H 302 H Hemoglobin A1c Lactic Acid Calcium Magnesium Ferritin Total Bilirubin AST ALT Alkaline Phosphatase Lactate Dehydrogenase Total Creatine Kinase C-Reactive Protein Total Protein Albumin Triglycerides Arterial Blood Glucose 286 H Arterial Blood Ionized Calcium Ur Specific [place] Urine WBC (Auto) Vancomycin Trough Coronavirus (PCR) Crossmatch 12/01/20 12/01/20 12/01/20 03:35 03:35 05:22 WBC 13.4 H RBC 3.54 L Hgb 10.4 L Hct 31.8 L MCH MCHC RDW Plt Count Lymph % (Auto) [place] % (Auto) Lymph # (Auto) [place] # (Auto) Baso # (Auto) Seg Neutrophils % Seg Neuts % (Manual) 95.0 H Lymphocytes % (Manual) 3.0 L Nucleated RBC % Seg Neutrophils # Seg Neutrophils # Man 12.7 H Lymphocytes # (Manual) 0.4 L D-Dimer ABG pH POC ABG pCO2 POC ABG pO2 ABG pO2 ABG HCO3 ABG O2 Saturation ABG Base Excess ABG Hemoglobin ABG Oxyhemoglobin ABG Sodium ABG Potassium ABG Chloride ABG Glucose Oxyhemoglobin Carboxyhemoglobin Sodium Potassium Chloride Carbon Dioxide 35 H BUN 34 H Creatinine 0.5 L Glucose 279 H POC Glucose 259 H Hemoglobin A1c Lactic Acid Calcium 7.6 L Magnesium Ferritin Total Bilirubin AST ALT 63 H Alkaline Phosphatase Lactate Dehydrogenase Total Creatine Kinase C-Reactive Protein Total Protein 4.8 L Albumin 2.1 L Triglycerides Arterial Blood Glucose Arterial Blood Ionized Calcium Ur Specific [place] Urine WBC (Auto) Vancomycin Trough Coronavirus (PCR) Crossmatch 12/01/20 12/01/20 12/01/20 12:05 17:40 23:46 WBC RBC Hgb Hct MCH MCHC RDW Plt Count Lymph % (Auto) [place] % (Auto) Lymph # (Auto) [place] # (Auto) Baso # (Auto) Seg Neutrophils % Seg Neuts % (Manual) Lymphocytes % (Manual) Nucleated RBC % Seg Neutrophils # Seg Neutrophils # Man Lymphocytes # (Manual) D-Dimer ABG pH POC ABG pCO2 POC ABG pO2 ABG pO2 ABG HCO3 ABG O2 Saturation ABG Base Excess ABG Hemoglobin ABG Oxyhemoglobin ABG Sodium ABG Potassium ABG Chloride ABG Glucose Oxyhemoglobin Carboxyhemoglobin Sodium Potassium Chloride Carbon Dioxide BUN Creatinine Glucose POC Glucose 197 H 244 H 284 H Hemoglobin A1c Lactic Acid Calcium Magnesium Ferritin Total Bilirubin AST ALT Alkaline Phosphatase Lactate Dehydrogenase Total Creatine Kinase C-Reactive Protein Total Protein Albumin Triglycerides Arterial Blood Glucose Arterial Blood Ionized Calcium Ur Specific [place] Urine WBC (Auto) Vancomycin Trough Coronavirus (PCR) Crossmatch 12/02/20 12/02/20 12/02/20 02:14 03:03 04:11 WBC 16.5 H RBC 3.55 L Hgb 10.5 L Hct 31.9 L MCH MCHC RDW Plt Count Lymph % (Auto) [place] % (Auto) Lymph # (Auto) [place] # (Auto) Baso # (Auto) Seg Neutrophils % Seg Neuts % (Manual) 90.0 H Lymphocytes % (Manual) 3.0 L Nucleated RBC % Seg Neutrophils # Seg Neutrophils # Man 14.9 H Lymphocytes # (Manual) 0.5 L D-Dimer ABG pH POC ABG pCO2 74.8 H POC ABG pO2 58.9 L ABG pO2 ABG HCO3 ABG O2 Saturation ABG Base Excess ABG Hemoglobin 11.5 L ABG Oxyhemoglobin ABG Sodium ABG Potassium ABG Chloride ABG Glucose 264 H Oxyhemoglobin Carboxyhemoglobin Sodium Potassium Chloride Carbon Dioxide 37 H BUN 30 H Creatinine 0.4 L Glucose 245 H POC Glucose Hemoglobin A1c Lactic Acid Calcium 7.5 L Magnesium Ferritin Total Bilirubin AST ALT Alkaline Phosphatase Lactate Dehydrogenase Total Creatine Kinase C-Reactive Protein Total Protein 5.2 L Albumin 2.2 L Triglycerides Arterial Blood Glucose 264 H Arterial Blood Ionized Calcium 4.5 L Ur Specific [place] Urine WBC (Auto) Vancomycin Trough Coronavirus (PCR) Crossmatch 12/02/20 12/02/20 12/02/20 05:19 11:46 17:52 WBC RBC Hgb Hct MCH MCHC RDW Plt Count Lymph % (Auto) [place] % (Auto) Lymph # (Auto) [place] # (Auto) Baso # (Auto) Seg Neutrophils % Seg Neuts % (Manual) Lymphocytes % (Manual) Nucleated RBC % Seg Neutrophils # Seg Neutrophils # Man Lymphocytes # (Manual) D-Dimer ABG pH POC ABG pCO2 POC ABG pO2 ABG pO2 ABG HCO3 ABG O2 Saturation ABG Base Excess ABG Hemoglobin ABG Oxyhemoglobin ABG Sodium ABG Potassium ABG Chloride ABG Glucose Oxyhemoglobin Carboxyhemoglobin Sodium Potassium Chloride Carbon Dioxide BUN Creatinine Glucose POC Glucose 238 H 236 H 233 H Hemoglobin A1c Lactic Acid Calcium Magnesium Ferritin Total Bilirubin AST ALT Alkaline Phosphatase Lactate Dehydrogenase Total Creatine Kinase C-Reactive Protein Total Protein Albumin Triglycerides Arterial Blood Glucose Arterial Blood Ionized Calcium Ur Specific [place] Urine WBC (Auto) Vancomycin Trough Coronavirus (PCR) Crossmatch 12/02/20 12/03/20 12/03/20 23:23 03:21 04:35 WBC RBC Hgb Hct MCH MCHC RDW Plt Count 112 L Lymph % (Auto) [place] % (Auto) Lymph # (Auto) [place] # (Auto) Baso # (Auto) Seg Neutrophils % Seg Neuts % (Manual) 93.0 H Lymphocytes % (Manual) 4.0 L Nucleated RBC % Seg Neutrophils # Seg Neutrophils # Man 9.1 H Lymphocytes # (Manual) 0.4 L D-Dimer ABG pH 7.299 L POC ABG pCO2 82.1 H POC ABG pO2 62.4 L ABG pO2 ABG HCO3 ABG O2 Saturation ABG Base Excess ABG Hemoglobin 11.5 L ABG Oxyhemoglobin 89.6 L ABG Sodium 134.3 L ABG Potassium ABG Chloride 95.0 L ABG Glucose 203 H Oxyhemoglobin Carboxyhemoglobin Sodium Potassium Chloride Carbon Dioxide BUN Creatinine Glucose POC Glucose 213 H Hemoglobin A1c Lactic Acid Calcium Magnesium Ferritin Total Bilirubin AST ALT Alkaline Phosphatase Lactate Dehydrogenase Total Creatine Kinase C-Reactive Protein Total Protein Albumin Triglycerides Arterial Blood Glucose 203 H Arterial Blood Ionized Calcium 4.5 L Ur Specific [place] Urine WBC (Auto) Vancomycin Trough Coronavirus (PCR) Crossmatch 12/03/20 12/03/20 12/03/20 04:35 05:42 11:28 WBC RBC Hgb Hct MCH MCHC RDW Plt Count Lymph % (Auto) [place] % (Auto) Lymph # (Auto) [place] # (Auto) Baso # (Auto) Seg Neutrophils % Seg Neuts % (Manual) Lymphocytes % (Manual) Nucleated RBC % Seg Neutrophils # Seg Neutrophils # Man Lymphocytes # (Manual) D-Dimer ABG pH POC ABG pCO2 POC ABG pO2 ABG pO2 ABG HCO3 ABG O2 Saturation ABG Base Excess ABG Hemoglobin ABG Oxyhemoglobin ABG Sodium ABG Potassium ABG Chloride ABG Glucose Oxyhemoglobin Carboxyhemoglobin Sodium Potassium Chloride 97.8 L Carbon Dioxide 43 H* BUN 25 H Creatinine 0.3 L Glucose 214 H POC Glucose 193 H 211 H Hemoglobin A1c Lactic Acid Calcium 7.7 L Magnesium Ferritin Total Bilirubin AST ALT 63 H Alkaline Phosphatase 132 H Lactate Dehydrogenase Total Creatine Kinase C-Reactive Protein Total Protein 5.1 L Albumin 2.4 L Triglycerides Arterial Blood Glucose Arterial Blood Ionized Calcium Ur Specific [place] Urine WBC (Auto) Vancomycin Trough Coronavirus (PCR) Crossmatch 12/03/20 12/03/20 12/04/20 17:45 23:57 00:11 WBC RBC Hgb Hct MCH MCHC RDW Plt Count Lymph % (Auto) [place] % (Auto) Lymph # (Auto) [place] # (Auto) Baso # (Auto) Seg Neutrophils % Seg Neuts % (Manual) Lymphocytes % (Manual) Nucleated RBC % Seg Neutrophils # Seg Neutrophils # Man Lymphocytes # (Manual) D-Dimer ABG pH POC ABG pCO2 POC ABG pO2 ABG pO2 ABG HCO3 ABG O2 Saturation ABG Base Excess ABG Hemoglobin ABG Oxyhemoglobin ABG Sodium ABG Potassium ABG Chloride ABG Glucose Oxyhemoglobin Carboxyhemoglobin Sodium Potassium Chloride Carbon Dioxide BUN Creatinine Glucose POC Glucose 231 H 240 H 239 H Hemoglobin A1c Lactic Acid Calcium Magnesium Ferritin Total Bilirubin AST ALT Alkaline Phosphatase Lactate Dehydrogenase Total Creatine Kinase C-Reactive Protein Total Protein Albumin Triglycerides Arterial Blood Glucose Arterial Blood Ionized Calcium Ur Specific [place] Urine WBC (Auto) Vancomycin Trough Coronavirus (PCR) Crossmatch 12/04/20 12/04/20 12/04/20 04:00 05:20 05:34 WBC RBC Hgb Hct MCH MCHC RDW Plt Count Lymph % (Auto) [place] % (Auto) Lymph # (Auto) [place] # (Auto) Baso # (Auto) Seg Neutrophils % Seg Neuts % (Manual) Lymphocytes % (Manual) Nucleated RBC % Seg Neutrophils # Seg Neutrophils # Man Lymphocytes # (Manual) D-Dimer ABG pH POC ABG pCO2 84.4 H POC ABG pO2 68.0 L ABG pO2 ABG HCO3 ABG O2 Saturation ABG Base Excess ABG Hemoglobin 11.6 L ABG Oxyhemoglobin ABG Sodium 130.9 L ABG Potassium ABG Chloride 90.0 L ABG Glucose 244 H Oxyhemoglobin Carboxyhemoglobin Sodium Potassium Chloride Carbon Dioxide BUN Creatinine Glucose POC Glucose 241 H 213 H Hemoglobin A1c Lactic Acid Calcium Magnesium Ferritin Total Bilirubin AST ALT Alkaline Phosphatase Lactate Dehydrogenase Total Creatine Kinase C-Reactive Protein Total Protein Albumin Triglycerides Arterial Blood Glucose 244 H Arterial Blood Ionized Calcium 4.4 L Ur Specific [place] Urine WBC (Auto) Vancomycin Trough Coronavirus (PCR) Crossmatch 12/04/20 12/04/20 12/04/20 11:36 16:53 23:32 WBC RBC Hgb Hct MCH MCHC RDW Plt Count Lymph % (Auto) [place] % (Auto) Lymph # (Auto) [place] # (Auto) Baso # (Auto) Seg Neutrophils % Seg Neuts % (Manual) Lymphocytes % (Manual) Nucleated RBC % Seg Neutrophils # Seg Neutrophils # Man Lymphocytes # (Manual) D-Dimer ABG pH POC ABG pCO2 POC ABG pO2 ABG pO2 ABG HCO3 ABG O2 Saturation ABG Base Excess ABG Hemoglobin ABG Oxyhemoglobin ABG Sodium ABG Potassium ABG Chloride ABG Glucose Oxyhemoglobin Carboxyhemoglobin Sodium Potassium Chloride Carbon Dioxide BUN Creatinine Glucose POC Glucose 196 H 127 H 230 H Hemoglobin A1c Lactic Acid Calcium Magnesium Ferritin Total Bilirubin AST ALT Alkaline Phosphatase Lactate Dehydrogenase Total Creatine Kinase C-Reactive Protein Total Protein Albumin Triglycerides Arterial Blood Glucose Arterial Blood Ionized Calcium Ur Specific [place] Urine WBC (Auto) Vancomycin Trough Coronavirus (PCR) Crossmatch 12/04/20 12/05/20 12/05/20 Unknown 04:16 05:21 WBC RBC Hgb Hct MCH MCHC RDW Plt Count Lymph % (Auto) [place] % (Auto) Lymph # (Auto) [place] # (Auto) Baso # (Auto) Seg Neutrophils % Seg Neuts % (Manual) Lymphocytes % (Manual) Nucleated RBC % Seg Neutrophils # Seg Neutrophils # Man Lymphocytes # (Manual) D-Dimer ABG pH POC ABG pCO2 86.7 H POC ABG pO2 58.0 L ABG pO2 ABG HCO3 ABG O2 Saturation ABG Base Excess ABG Hemoglobin 11.6 L ABG Oxyhemoglobin 89 L ABG Sodium 130.1 L ABG Potassium 4.9 H ABG Chloride 89.0 L ABG Glucose 254 H Oxyhemoglobin Carboxyhemoglobin Sodium 136 L Potassium Chloride 90.0 L Carbon Dioxide 46 H* BUN 24 H Creatinine 0.3 L Glucose 226 H POC Glucose 213 H Hemoglobin A1c Lactic Acid Calcium 7.6 L Magnesium Ferritin Total Bilirubin AST 46 H ALT 78 H Alkaline Phosphatase 172 H Lactate Dehydrogenase Total Creatine Kinase C-Reactive Protein Total Protein 6.0 L Albumin 2.8 L Triglycerides 156 H Arterial Blood Glucose 254 H Arterial Blood Ionized Calcium 4.4 L Ur Specific [place] Urine WBC (Auto) Vancomycin Trough Coronavirus (PCR) Crossmatch 12/05/20 12/05/20 12/05/20 11:22 17:26 23:38 WBC RBC Hgb Hct MCH MCHC RDW Plt Count Lymph % (Auto) [place] % (Auto) Lymph # (Auto) [place] # (Auto) Baso # (Auto) Seg Neutrophils % Seg Neuts % (Manual) Lymphocytes % (Manual) Nucleated RBC % Seg Neutrophils # Seg Neutrophils # Man Lymphocytes # (Manual) D-Dimer ABG pH POC ABG pCO2 POC ABG pO2 ABG pO2 ABG HCO3 ABG O2 Saturation ABG Base Excess ABG Hemoglobin ABG Oxyhemoglobin ABG Sodium ABG Potassium ABG Chloride ABG Glucose Oxyhemoglobin Carboxyhemoglobin Sodium Potassium Chloride Carbon Dioxide BUN Creatinine Glucose POC Glucose 212 H 157 H 204 H Hemoglobin A1c Lactic Acid Calcium Magnesium Ferritin Total Bilirubin AST ALT Alkaline Phosphatase Lactate Dehydrogenase Total Creatine Kinase C-Reactive Protein Total Protein Albumin Triglycerides Arterial Blood Glucose Arterial Blood Ionized Calcium Ur Specific [place] Urine WBC (Auto) Vancomycin Trough Coronavirus (PCR) Crossmatch 12/06/20 12/06/20 12/06/20 04:31 04:31 05:12 WBC 17.0 H RBC 3.63 L Hgb 10.8 L D Hct 32.6 L D MCH MCHC RDW Plt Count Lymph % (Auto) [place] % (Auto) Lymph # (Auto) [place] # (Auto) Baso # (Auto) Seg Neutrophils % Seg Neuts % (Manual) Lymphocytes % (Manual) Nucleated RBC % Seg Neutrophils # Seg Neutrophils # Man Lymphocytes # (Manual) D-Dimer ABG pH POC ABG pCO2 85.9 H POC ABG pO2 57.6 L ABG pO2 ABG HCO3 ABG O2 Saturation ABG Base Excess ABG Hemoglobin ABG Oxyhemoglobin ABG Sodium 131.2 L ABG Potassium 4.8 H ABG Chloride 86.0 L ABG Glucose 200 H Oxyhemoglobin Carboxyhemoglobin Sodium 134 L Potassium 5.1 H Chloride 88.4 L Carbon Dioxide 47 H* BUN 23 H Creatinine 0.3 L Glucose 206 H POC Glucose Hemoglobin A1c Lactic Acid Calcium 8.3 L Magnesium Ferritin Total Bilirubin AST 48 H ALT 91 H Alkaline Phosphatase 140 H Lactate Dehydrogenase Total Creatine Kinase C-Reactive Protein Total Protein 5.7 L Albumin 2.6 L Triglycerides Arterial Blood Glucose 200 H Arterial Blood Ionized Calcium 4.4 L Ur Specific [place] Urine WBC (Auto) Vancomycin Trough Coronavirus (PCR) Crossmatch 12/06/20 12/06/20 12/06/20 05:24 12:18 16:45 WBC RBC Hgb Hct MCH MCHC RDW Plt Count Lymph % (Auto) [place] % (Auto) Lymph # (Auto) [place] # (Auto) Baso # (Auto) Seg Neutrophils % Seg Neuts % (Manual) Lymphocytes % (Manual) Nucleated RBC % Seg Neutrophils # Seg Neutrophils # Man Lymphocytes # (Manual) D-Dimer ABG pH POC ABG pCO2 POC ABG pO2 ABG pO2 ABG HCO3 ABG O2 Saturation ABG Base Excess ABG Hemoglobin ABG Oxyhemoglobin ABG Sodium ABG Potassium ABG Chloride ABG Glucose Oxyhemoglobin Carboxyhemoglobin Sodium Potassium Chloride Carbon Dioxide BUN Creatinine Glucose POC Glucose 186 H 187 H 150 H Hemoglobin A1c Lactic Acid Calcium Magnesium Ferritin Total Bilirubin AST ALT Alkaline Phosphatase Lactate Dehydrogenase Total Creatine Kinase C-Reactive Protein Total Protein Albumin Triglycerides Arterial Blood Glucose Arterial Blood Ionized Calcium Ur Specific [place] Urine WBC (Auto) Vancomycin Trough Coronavirus (PCR) Crossmatch 12/06/20 12/07/20 12/07/20 23:43 05:20 05:21 WBC RBC Hgb Hct MCH MCHC RDW Plt Count Lymph % (Auto) [place] % (Auto) Lymph # (Auto) [place] # (Auto) Baso # (Auto) Seg Neutrophils % Seg Neuts % (Manual) Lymphocytes % (Manual) Nucleated RBC % Seg Neutrophils # Seg Neutrophils # Man Lymphocytes # (Manual) D-Dimer ABG pH POC ABG pCO2 POC ABG pO2 ABG pO2 48.4 L ABG HCO3 50.8 H ABG O2 Saturation 86.2 L ABG Base Excess 22.4 H ABG Hemoglobin 11.0 L ABG Oxyhemoglobin ABG Sodium ABG Potassium ABG Chloride ABG Glucose Oxyhemoglobin 84.0 L Carboxyhemoglobin Sodium Potassium Chloride Carbon Dioxide BUN Creatinine Glucose POC Glucose 153 H 107 H Hemoglobin A1c Lactic Acid Calcium Magnesium Ferritin Total Bilirubin AST ALT Alkaline Phosphatase Lactate Dehydrogenase Total Creatine Kinase C-Reactive Protein Total Protein Albumin Triglycerides Arterial Blood Glucose Arterial Blood Ionized Calcium Ur Specific [place] Urine WBC (Auto) Vancomycin Trough Coronavirus (PCR) Crossmatch 12/07/20 12/07/20 12/07/20 13:20 14:28 17:35 WBC RBC Hgb Hct MCH MCHC RDW Plt Count Lymph % (Auto) [place] % (Auto) Lymph # (Auto) [place] # (Auto) Baso # (Auto) Seg Neutrophils % Seg Neuts % (Manual) Lymphocytes % (Manual) Nucleated RBC % Seg Neutrophils # Seg Neutrophils # Man Lymphocytes # (Manual) D-Dimer ABG pH POC ABG pCO2 74.1 H POC ABG pO2 68.5 L ABG pO2 ABG HCO3 ABG O2 Saturation ABG Base Excess ABG Hemoglobin 10.7 L ABG Oxyhemoglobin 91.9 L ABG Sodium 132.2 L ABG Potassium 4.7 H ABG Chloride 88.0 L ABG Glucose 138 H Oxyhemoglobin Carboxyhemoglobin Sodium 134 L Potassium Chloride 87.4 L Carbon Dioxide 49 H* BUN Creatinine 0.2 L Glucose 132 H POC Glucose 176 H Hemoglobin A1c Lactic Acid Calcium 7.7 L Magnesium Ferritin Total Bilirubin AST ALT Alkaline Phosphatase Lactate Dehydrogenase Total Creatine Kinase C-Reactive Protein Total Protein Albumin Triglycerides Arterial Blood Glucose 138 H Arterial Blood Ionized Calcium 4.0 L Ur Specific [place] Urine WBC (Auto) Vancomycin Trough Coronavirus (PCR) Crossmatch 12/07/20 12/08/20 12/08/20 23:44 04:12 05:29 WBC RBC Hgb Hct MCH MCHC RDW Plt Count Lymph % (Auto) [place] % (Auto) Lymph # (Auto) [place] # (Auto) Baso # (Auto) Seg Neutrophils % Seg Neuts % (Manual) Lymphocytes % (Manual) Nucleated RBC % Seg Neutrophils # Seg Neutrophils # Man Lymphocytes # (Manual) D-Dimer ABG pH POC ABG pCO2 POC ABG pO2 ABG pO2 69.7 L ABG HCO3 50.1 H ABG O2 Saturation ABG Base Excess 21.6 H ABG Hemoglobin 10.9 L ABG Oxyhemoglobin ABG Sodium ABG Potassium ABG Chloride ABG Glucose Oxyhemoglobin 93.2 L Carboxyhemoglobin Sodium Potassium Chloride Carbon Dioxide BUN Creatinine Glucose POC Glucose 143 H 143 H Hemoglobin A1c Lactic Acid Calcium Magnesium Ferritin Total Bilirubin AST ALT Alkaline Phosphatase Lactate Dehydrogenase Total Creatine Kinase C-Reactive Protein Total Protein Albumin Triglycerides Arterial Blood Glucose Arterial Blood Ionized Calcium Ur Specific [place] Urine WBC (Auto) Vancomycin Trough Coronavirus (PCR) Crossmatch 12/08/20 12/08/20 12/09/20 06:10 06:10 04:24 WBC 12.0 H RBC 3.18 L Hgb 9.5 L Hct 28.9 L MCH MCHC RDW Plt Count Lymph % (Auto) [place] % (Auto) Lymph # (Auto) [place] # (Auto) Baso # (Auto) Seg Neutrophils % Seg Neuts % (Manual) 95.0 H Lymphocytes % (Manual) 3.0 L Nucleated RBC % Seg Neutrophils # Seg Neutrophils # Man 11.4 H Lymphocytes # (Manual) 0.4 L D-Dimer ABG pH POC ABG pCO2 76.2 H POC ABG pO2 52.8 L ABG pO2 ABG HCO3 ABG O2 Saturation ABG Base Excess ABG Hemoglobin 11.7 L ABG Oxyhemoglobin ABG Sodium 132.0 L ABG Potassium ABG Chloride 87.0 L ABG Glucose 118 H Oxyhemoglobin Carboxyhemoglobin Sodium 133 L Potassium Chloride 86.3 L Carbon Dioxide 53 H* BUN Creatinine 0.2 L Glucose 156 H POC Glucose Hemoglobin A1c Lactic Acid Calcium 7.6 L Magnesium Ferritin Total Bilirubin AST ALT Alkaline Phosphatase Lactate Dehydrogenase Total Creatine Kinase C-Reactive Protein Total Protein Albumin Triglycerides Arterial Blood Glucose 118 H Arterial Blood Ionized Calcium 4.2 L Ur Specific [place] Urine WBC (Auto) Vancomycin Trough Coronavirus (PCR) Crossmatch 12/09/20 12/09/20 12/09/20 05:44 06:40 06:40 WBC 13.5 H RBC 3.28 L Hgb 9.7 L Hct 29.9 L MCH MCHC RDW Plt Count Lymph % (Auto) [place] % (Auto) Lymph # (Auto) [place] # (Auto) Baso # (Auto) Seg Neutrophils % Seg Neuts % (Manual) Lymphocytes % (Manual) Nucleated RBC % Seg Neutrophils # Seg Neutrophils # Man Lymphocytes # (Manual) D-Dimer ABG pH POC ABG pCO2 POC ABG pO2 ABG pO2 ABG HCO3 ABG O2 Saturation ABG Base Excess ABG Hemoglobin ABG Oxyhemoglobin ABG Sodium ABG Potassium ABG Chloride ABG Glucose Oxyhemoglobin Carboxyhemoglobin Sodium 135 L Potassium Chloride 89.5 L Carbon Dioxide 52 H* BUN Creatinine 0.3 L Glucose 114 H POC Glucose 117 H Hemoglobin A1c Lactic Acid Calcium 7.6 L Magnesium Ferritin Total Bilirubin AST ALT Alkaline Phosphatase Lactate Dehydrogenase Total Creatine Kinase C-Reactive Protein Total Protein Albumin Triglycerides Arterial Blood Glucose Arterial Blood Ionized Calcium Ur Specific [place] Urine WBC (Auto) Vancomycin Trough Coronavirus (PCR) Crossmatch 12/09/20 12/09/20 12/10/20 16:42 21:11 04:28 WBC RBC Hgb Hct MCH MCHC RDW Plt Count Lymph % (Auto) [place] % (Auto) Lymph # (Auto) [place] # (Auto) Baso # (Auto) Seg Neutrophils % Seg Neuts % (Manual) Lymphocytes % (Manual) Nucleated RBC % Seg Neutrophils # Seg Neutrophils # Man Lymphocytes # (Manual) D-Dimer ABG pH POC ABG pCO2 72.5 H 69.4 H 76.9 H POC ABG pO2 50.4 L 80.6 L 60.2 L ABG pO2 ABG HCO3 ABG O2 Saturation ABG Base Excess ABG Hemoglobin 10.4 L 10.7 L 10 L ABG Oxyhemoglobin 84.3 L 89.7 L ABG Sodium 133.7 L 133.7 L 133.8 L ABG Potassium ABG Chloride 90.0 L 91.0 L 91.0 L ABG Glucose 116 H 96 H 57 L Oxyhemoglobin Carboxyhemoglobin 0.4 L Sodium Potassium Chloride Carbon Dioxide BUN Creatinine Glucose POC Glucose Hemoglobin A1c Lactic Acid Calcium Magnesium Ferritin Total Bilirubin AST ALT Alkaline Phosphatase Lactate Dehydrogenase Total Creatine Kinase C-Reactive Protein Total Protein Albumin Triglycerides Arterial Blood Glucose 116 H 96 H 57 L Arterial Blood Ionized Calcium 4.2 L 4.3 L 4.2 L Ur Specific [place] Urine WBC (Auto) Vancomycin Trough Coronavirus (PCR) Crossmatch 12/10/20 12/10/20 12/10/20 05:09 05:41 11:50 WBC RBC Hgb Hct MCH MCHC RDW Plt Count Lymph % (Auto) [place] % (Auto) Lymph # (Auto) [place] # (Auto) Baso # (Auto) Seg Neutrophils % Seg Neuts % (Manual) Lymphocytes % (Manual) Nucleated RBC % Seg Neutrophils # Seg Neutrophils # Man Lymphocytes # (Manual) D-Dimer ABG pH POC ABG pCO2 POC ABG pO2 ABG pO2 ABG HCO3 ABG O2 Saturation ABG Base Excess ABG Hemoglobin ABG Oxyhemoglobin ABG Sodium ABG Potassium ABG Chloride ABG Glucose Oxyhemoglobin Carboxyhemoglobin Sodium Potassium Chloride Carbon Dioxide BUN Creatinine Glucose POC Glucose 41 L 138 H 106 H Hemoglobin A1c Lactic Acid Calcium Magnesium Ferritin Total Bilirubin AST ALT Alkaline Phosphatase Lactate Dehydrogenase Total Creatine Kinase C-Reactive Protein Total Protein Albumin Triglycerides Arterial Blood Glucose Arterial Blood Ionized Calcium Ur Specific [place] Urine WBC (Auto) Vancomycin Trough Coronavirus (PCR) Crossmatch 12/10/20 12/10/20 12/11/20 17:34 23:25 04:06 WBC RBC Hgb Hct MCH MCHC RDW Plt Count Lymph % (Auto) [place] % (Auto) Lymph # (Auto) [place] # (Auto) Baso # (Auto) Seg Neutrophils % Seg Neuts % (Manual) Lymphocytes % (Manual) Nucleated RBC % Seg Neutrophils # Seg Neutrophils # Man Lymphocytes # (Manual) D-Dimer ABG pH POC ABG pCO2 71.0 H POC ABG pO2 56.8 L ABG pO2 ABG HCO3 ABG O2 Saturation ABG Base Excess ABG Hemoglobin 10.1 L ABG Oxyhemoglobin 88.5 L ABG Sodium 132.3 L ABG Potassium ABG Chloride 91.0 L ABG Glucose 168 H Oxyhemoglobin Carboxyhemoglobin Sodium Potassium Chloride Carbon Dioxide BUN Creatinine Glucose POC Glucose 121 H 167 H Hemoglobin A1c Lactic Acid Calcium Magnesium Ferritin Total Bilirubin AST ALT Alkaline Phosphatase Lactate Dehydrogenase Total Creatine Kinase C-Reactive Protein Total Protein Albumin Triglycerides Arterial Blood Glucose 168 H Arterial Blood Ionized Calcium 4.1 L Ur Specific [place] Urine WBC (Auto) Vancomycin Trough Coronavirus (PCR) Crossmatch 12/11/20 12/11/20 12/11/20 05:21 11:44 15:40 WBC RBC Hgb Hct MCH MCHC RDW Plt Count Lymph % (Auto) [place] % (Auto) Lymph # (Auto) [place] # (Auto) Baso # (Auto) Seg Neutrophils % Seg Neuts % (Manual) Lymphocytes % (Manual) Nucleated RBC % Seg Neutrophils # Seg Neutrophils # Man Lymphocytes # (Manual) D-Dimer ABG pH 7.454 H POC ABG pCO2 58.6 H POC ABG pO2 50.7 L ABG pO2 ABG HCO3 ABG O2 Saturation ABG Base Excess ABG Hemoglobin 10.1 L ABG Oxyhemoglobin 86.2 L ABG Sodium 131.2 L ABG Potassium ABG Chloride 92.0 L ABG Glucose 197 H Oxyhemoglobin Carboxyhemoglobin Sodium Potassium Chloride Carbon Dioxide BUN Creatinine Glucose POC Glucose 149 H 202 H Hemoglobin A1c Lactic Acid Calcium Magnesium Ferritin Total Bilirubin AST ALT Alkaline Phosphatase Lactate Dehydrogenase Total Creatine Kinase C-Reactive Protein Total Protein Albumin Triglycerides Arterial Blood Glucose 197 H Arterial Blood Ionized Calcium 4.2 L Ur Specific [place] Urine WBC (Auto) Vancomycin Trough Coronavirus (PCR) Crossmatch 12/11/20 12/11/20 12/12/20 17:09 23:16 05:09 WBC RBC Hgb Hct MCH MCHC RDW Plt Count Lymph % (Auto) [place] % (Auto) Lymph # (Auto) [place] # (Auto) Baso # (Auto) Seg Neutrophils % Seg Neuts % (Manual) Lymphocytes % (Manual) Nucleated RBC % Seg Neutrophils # Seg Neutrophils # Man Lymphocytes # (Manual) D-Dimer ABG pH POC ABG pCO2 63.1 H POC ABG pO2 62.6 L ABG pO2 ABG HCO3 ABG O2 Saturation ABG Base Excess ABG Hemoglobin 10.3 L ABG Oxyhemoglobin ABG Sodium 130.3 L ABG Potassium 4.6 H ABG Chloride 92.0 L ABG Glucose 215 H Oxyhemoglobin Carboxyhemoglobin Sodium Potassium Chloride Carbon Dioxide BUN Creatinine Glucose POC Glucose 181 H 192 H Hemoglobin A1c Lactic Acid Calcium Magnesium Ferritin Total Bilirubin AST ALT Alkaline Phosphatase Lactate Dehydrogenase Total Creatine Kinase C-Reactive Protein Total Protein Albumin Triglycerides Arterial Blood Glucose 215 H Arterial Blood Ionized Calcium 4.4 L Ur Specific [place] Urine WBC (Auto) Vancomycin Trough Coronavirus (PCR) Crossmatch 12/12/20 12/12/20 12/12/20 05:16 05:47 11:41 WBC RBC Hgb Hct MCH MCHC RDW Plt Count Lymph % (Auto) [place] % (Auto) Lymph # (Auto) [place] # (Auto) Baso # (Auto) Seg Neutrophils % Seg Neuts % (Manual) Lymphocytes % (Manual) Nucleated RBC % Seg Neutrophils # Seg Neutrophils # Man Lymphocytes # (Manual) D-Dimer ABG pH POC ABG pCO2 POC ABG pO2 ABG pO2 ABG HCO3 ABG O2 Saturation ABG Base Excess ABG Hemoglobin ABG Oxyhemoglobin ABG Sodium ABG Potassium ABG Chloride ABG Glucose Oxyhemoglobin Carboxyhemoglobin Sodium Potassium Chloride Carbon Dioxide BUN Creatinine Glucose POC Glucose 208 H 218 H Hemoglobin A1c Lactic Acid Calcium Magnesium Ferritin Total Bilirubin AST ALT Alkaline Phosphatase Lactate Dehydrogenase Total Creatine Kinase C-Reactive Protein Total Protein Albumin Triglycerides 150 H Arterial Blood Glucose Arterial Blood Ionized Calcium Ur Specific [place] Urine WBC (Auto) Vancomycin Trough Coronavirus (PCR) Crossmatch 12/12/20 12/12/20 12/13/20 17:05 23:18 03:36 WBC RBC Hgb Hct MCH MCHC RDW Plt Count Lymph % (Auto) [place] % (Auto) Lymph # (Auto) [place] # (Auto) Baso # (Auto) Seg Neutrophils % Seg Neuts % (Manual) Lymphocytes % (Manual) Nucleated RBC % Seg Neutrophils # Seg Neutrophils # Man Lymphocytes # (Manual) D-Dimer ABG pH POC ABG pCO2 61.5 H POC ABG pO2 77.6 L ABG pO2 ABG HCO3 ABG O2 Saturation ABG Base Excess ABG Hemoglobin 10.2 L ABG Oxyhemoglobin ABG Sodium 127.5 L ABG Potassium ABG Chloride 91.0 L ABG Glucose 232 H Oxyhemoglobin Carboxyhemoglobin Sodium Potassium Chloride Carbon Dioxide BUN Creatinine Glucose POC Glucose 187 H 176 H Hemoglobin A1c Lactic Acid Calcium Magnesium Ferritin Total Bilirubin AST ALT Alkaline Phosphatase Lactate Dehydrogenase Total Creatine Kinase C-Reactive Protein Total Protein Albumin Triglycerides Arterial Blood Glucose 232 H Arterial Blood Ionized Calcium 4.2 L Ur Specific [place] Urine WBC (Auto) Vancomycin Trough Coronavirus (PCR) Crossmatch 12/13/20 12/13/20 12/13/20 05:13 10:00 11:30 WBC RBC 3.50 L Hgb 10.5 L Hct 31.9 L MCH MCHC RDW Plt Count Lymph % (Auto) [place] % (Auto) Lymph # (Auto) [place] # (Auto) Baso # (Auto) Seg Neutrophils % Seg Neuts % (Manual) 96.0 H Lymphocytes % (Manual) Nucleated RBC % Seg Neutrophils # Seg Neutrophils # Man 9.2 H Lymphocytes # (Manual) 0.0 L D-Dimer ABG pH POC ABG pCO2 POC ABG pO2 ABG pO2 ABG HCO3 ABG O2 Saturation ABG Base Excess ABG Hemoglobin ABG Oxyhemoglobin ABG Sodium ABG Potassium ABG Chloride ABG Glucose Oxyhemoglobin Carboxyhemoglobin Sodium Potassium Chloride Carbon Dioxide BUN Creatinine Glucose POC Glucose 204 H Hemoglobin A1c Lactic Acid Calcium Magnesium Ferritin Total Bilirubin AST ALT Alkaline Phosphatase Lactate Dehydrogenase Total Creatine Kinase C-Reactive Protein Total Protein Albumin Triglycerides Arterial Blood Glucose Arterial Blood Ionized Calcium Ur Specific [place] Urine WBC (Auto) Vancomycin Trough Coronavirus (PCR) Positive A Crossmatch 12/13/20 12/13/20 12/13/20 11:30 12:01 18:04 WBC RBC Hgb Hct MCH MCHC RDW Plt Count Lymph % (Auto) [place] % (Auto) Lymph # (Auto) [place] # (Auto) Baso # (Auto) Seg Neutrophils % Seg Neuts % (Manual) Lymphocytes % (Manual) Nucleated RBC % Seg Neutrophils # Seg Neutrophils # Man Lymphocytes # (Manual) D-Dimer ABG pH POC ABG pCO2 POC ABG pO2 ABG pO2 ABG HCO3 ABG O2 Saturation ABG Base Excess ABG Hemoglobin ABG Oxyhemoglobin ABG Sodium ABG Potassium ABG Chloride ABG Glucose Oxyhemoglobin Carboxyhemoglobin Sodium 132 L Potassium Chloride 90.1 L Carbon Dioxide 41 H* D BUN Creatinine 0.2 L Glucose 249 H POC Glucose 224 H 172 H Hemoglobin A1c Lactic Acid Calcium 7.4 L Magnesium Ferritin Total Bilirubin AST ALT 61 H Alkaline Phosphatase Lactate Dehydrogenase Total Creatine Kinase C-Reactive Protein Total Protein 5.7 L Albumin 2.3 L Triglycerides Arterial Blood Glucose Arterial Blood Ionized Calcium Ur Specific [place] Urine WBC (Auto) Vancomycin Trough Coronavirus (PCR) Crossmatch 12/13/20 12/14/20 12/14/20 23:37 04:05 04:35 WBC RBC 3.37 L Hgb 10.1 L Hct 30.7 L MCH MCHC RDW 15.4 H Plt Count Lymph % (Auto) [place] % (Auto) Lymph # (Auto) [place] # (Auto) Baso # (Auto) Seg Neutrophils % Seg Neuts % (Manual) 93.0 H Lymphocytes % (Manual) 3.0 L Nucleated RBC % Seg Neutrophils # Seg Neutrophils # Man 7.8 H Lymphocytes # (Manual) 0.3 L D-Dimer ABG pH POC ABG pCO2 72.2 H POC ABG pO2 61.5 L ABG pO2 ABG HCO3 ABG O2 Saturation ABG Base Excess ABG Hemoglobin ABG Oxyhemoglobin 89.9 L ABG Sodium 131.4 L ABG Potassium ABG Chloride 91.0 L ABG Glucose 205 H Oxyhemoglobin Carboxyhemoglobin Sodium Potassium Chloride Carbon Dioxide BUN Creatinine Glucose POC Glucose 200 H Hemoglobin A1c Lactic Acid Calcium Magnesium Ferritin Total Bilirubin AST ALT Alkaline Phosphatase Lactate Dehydrogenase Total Creatine Kinase C-Reactive Protein Total Protein Albumin Triglycerides Arterial Blood Glucose 205 H Arterial Blood Ionized Calcium 4.3 L Ur Specific [place] Urine WBC (Auto) Vancomycin Trough Coronavirus (PCR) Crossmatch 12/14/20 12/14/20 12/14/20 04:35 05:12 11:31 WBC RBC Hgb Hct MCH MCHC RDW Plt Count Lymph % (Auto) [place] % (Auto) Lymph # (Auto) [place] # (Auto) Baso # (Auto) Seg Neutrophils % Seg Neuts % (Manual) Lymphocytes % (Manual) Nucleated RBC % Seg Neutrophils # Seg Neutrophils # Man Lymphocytes # (Manual) D-Dimer ABG pH POC ABG pCO2 POC ABG pO2 ABG pO2 ABG HCO3 ABG O2 Saturation ABG Base Excess ABG Hemoglobin ABG Oxyhemoglobin ABG Sodium ABG Potassium ABG Chloride ABG Glucose Oxyhemoglobin Carboxyhemoglobin Sodium 135 L Potassium Chloride 92.5 L Carbon Dioxide 38 H BUN Creatinine 0.2 L Glucose 184 H POC Glucose 176 H 212 H Hemoglobin A1c Lactic Acid Calcium 7.7 L Magnesium Ferritin Total Bilirubin AST ALT Alkaline Phosphatase Lactate Dehydrogenase Total Creatine Kinase C-Reactive Protein Total Protein Albumin Triglycerides Arterial Blood Glucose Arterial Blood Ionized Calcium Ur Specific [place] Urine WBC (Auto) Vancomycin Trough Coronavirus (PCR) Crossmatch 12/14/20 12/14/20 12/15/20 17:30 23:30 03:19 WBC RBC Hgb Hct MCH MCHC RDW Plt Count Lymph % (Auto) [place] % (Auto) Lymph # (Auto) [place] # (Auto) Baso # (Auto) Seg Neutrophils % Seg Neuts % (Manual) Lymphocytes % (Manual) Nucleated RBC % Seg Neutrophils # Seg Neutrophils # Man Lymphocytes # (Manual) D-Dimer ABG pH POC ABG pCO2 62.0 H POC ABG pO2 66.0 L ABG pO2 ABG HCO3 ABG O2 Saturation ABG Base Excess ABG Hemoglobin 10.3 L ABG Oxyhemoglobin ABG Sodium 130.5 L ABG Potassium ABG Chloride 91.0 L ABG Glucose 166 H Oxyhemoglobin Carboxyhemoglobin Sodium Potassium Chloride Carbon Dioxide BUN Creatinine Glucose POC Glucose 222 H 176 H Hemoglobin A1c Lactic Acid Calcium Magnesium Ferritin Total Bilirubin AST ALT Alkaline Phosphatase Lactate Dehydrogenase Total Creatine Kinase C-Reactive Protein Total Protein Albumin Triglycerides Arterial Blood Glucose 166 H Arterial Blood Ionized Calcium 4.4 L Ur Specific [place] Urine WBC (Auto) Vancomycin Trough Coronavirus (PCR) Crossmatch 12/15/20 12/15/20 12/15/20 05:24 11:39 17:30 WBC RBC Hgb Hct MCH MCHC RDW Plt Count Lymph % (Auto) [place] % (Auto) Lymph # (Auto) [place] # (Auto) Baso # (Auto) Seg Neutrophils % Seg Neuts % (Manual) Lymphocytes % (Manual) Nucleated RBC % Seg Neutrophils # Seg Neutrophils # Man Lymphocytes # (Manual) D-Dimer ABG pH POC ABG pCO2 POC ABG pO2 ABG pO2 ABG HCO3 ABG O2 Saturation ABG Base Excess ABG Hemoglobin ABG Oxyhemoglobin ABG Sodium ABG Potassium ABG Chloride ABG Glucose Oxyhemoglobin Carboxyhemoglobin Sodium Potassium Chloride Carbon Dioxide BUN Creatinine Glucose POC Glucose 160 H 140 H 246 H Hemoglobin A1c Lactic Acid Calcium Magnesium Ferritin Total Bilirubin AST ALT Alkaline Phosphatase Lactate Dehydrogenase Total Creatine Kinase C-Reactive Protein Total Protein Albumin Triglycerides Arterial Blood Glucose Arterial Blood Ionized Calcium Ur Specific [place] Urine WBC (Auto) Vancomycin Trough Coronavirus (PCR) Crossmatch 12/15/20 12/16/20 12/16/20 23:42 03:54 04:46 WBC RBC 3.48 L Hgb 10.6 L Hct 31.5 L MCH MCHC RDW 15.8 H Plt Count Lymph % (Auto) [place] % (Auto) Lymph # (Auto) [place] # (Auto) Baso # (Auto) Seg Neutrophils % Seg Neuts % (Manual) Lymphocytes % (Manual) Nucleated RBC % Seg Neutrophils # Seg Neutrophils # Man Lymphocytes # (Manual) D-Dimer ABG pH POC ABG pCO2 63.6 H POC ABG pO2 55.0 L ABG pO2 ABG HCO3 ABG O2 Saturation ABG Base Excess ABG Hemoglobin 11.1 L ABG Oxyhemoglobin 87.3 L ABG Sodium 130.7 L ABG Potassium ABG Chloride 89.0 L ABG Glucose 211 H Oxyhemoglobin Carboxyhemoglobin Sodium Potassium Chloride Carbon Dioxide BUN Creatinine Glucose POC Glucose 139 H Hemoglobin A1c Lactic Acid Calcium Magnesium Ferritin Total Bilirubin AST ALT Alkaline Phosphatase Lactate Dehydrogenase Total Creatine Kinase C-Reactive Protein Total Protein Albumin Triglycerides Arterial Blood Glucose 211 H Arterial Blood Ionized Calcium 4.3 L Ur Specific [place] Urine WBC (Auto) Vancomycin Trough Coronavirus (PCR) Crossmatch 12/16/20 12/16/20 12/16/20 04:46 05:34 11:40 WBC RBC Hgb Hct MCH MCHC RDW Plt Count Lymph % (Auto) [place] % (Auto) Lymph # (Auto) [place] # (Auto) Baso # (Auto) Seg Neutrophils % Seg Neuts % (Manual) Lymphocytes % (Manual) Nucleated RBC % Seg Neutrophils # Seg Neutrophils # Man Lymphocytes # (Manual) D-Dimer ABG pH POC ABG pCO2 POC ABG pO2 ABG pO2 ABG HCO3 ABG O2 Saturation ABG Base Excess ABG Hemoglobin ABG Oxyhemoglobin ABG Sodium ABG Potassium ABG Chloride ABG Glucose Oxyhemoglobin Carboxyhemoglobin Sodium 134 L Potassium Chloride 89.7 L Carbon Dioxide 38 H BUN Creatinine < 0.2 L Glucose 203 H POC Glucose 155 H 239 H Hemoglobin A1c Lactic Acid Calcium 7.5 L Magnesium Ferritin Total Bilirubin AST ALT Alkaline Phosphatase Lactate Dehydrogenase Total Creatine Kinase C-Reactive Protein Total Protein Albumin Triglycerides Arterial Blood Glucose Arterial Blood Ionized Calcium Ur Specific [place] Urine WBC (Auto) Vancomycin Trough Coronavirus (PCR) Crossmatch 12/16/20 12/16/20 12/17/20 17:42 23:45 03:59 WBC RBC Hgb Hct MCH MCHC RDW Plt Count Lymph % (Auto) [place] % (Auto) Lymph # (Auto) [place] # (Auto) Baso # (Auto) Seg Neutrophils % Seg Neuts % (Manual) Lymphocytes % (Manual) Nucleated RBC % Seg Neutrophils # Seg Neutrophils # Man Lymphocytes # (Manual) D-Dimer ABG pH POC ABG pCO2 71.9 H POC ABG pO2 57.5 L ABG pO2 ABG HCO3 ABG O2 Saturation ABG Base Excess ABG Hemoglobin 10.8 L ABG Oxyhemoglobin 87.7 L ABG Sodium 131.5 L ABG Potassium ABG Chloride 90.0 L ABG Glucose 199 H Oxyhemoglobin Carboxyhemoglobin Sodium Potassium Chloride Carbon Dioxide BUN Creatinine Glucose POC Glucose 228 H 187 H Hemoglobin A1c Lactic Acid Calcium Magnesium Ferritin Total Bilirubin AST ALT Alkaline Phosphatase Lactate Dehydrogenase Total Creatine Kinase C-Reactive Protein Total Protein Albumin Triglycerides Arterial Blood Glucose 199 H Arterial Blood Ionized Calcium 4.4 L Ur Specific [place] Urine WBC (Auto) Vancomycin Trough Coronavirus (PCR) Crossmatch 12/17/20 12/17/20 12/17/20 05:35 11:55 12:40 WBC RBC Hgb Hct MCH MCHC RDW Plt Count Lymph % (Auto) [place] % (Auto) Lymph # (Auto) [place] # (Auto) Baso # (Auto) Seg Neutrophils % Seg Neuts % (Manual) Lymphocytes % (Manual) Nucleated RBC % Seg Neutrophils # Seg Neutrophils # Man Lymphocytes # (Manual) D-Dimer ABG pH POC ABG pCO2 POC ABG pO2 ABG pO2 ABG HCO3 ABG O2 Saturation ABG Base Excess ABG Hemoglobin ABG Oxyhemoglobin ABG Sodium ABG Potassium ABG Chloride ABG Glucose Oxyhemoglobin Carboxyhemoglobin Sodium Potassium Chloride 95.2 L Carbon Dioxide 41 H* BUN Creatinine 0.2 L Glucose 138 H POC Glucose 159 H 181 H Hemoglobin A1c Lactic Acid Calcium 7.3 L Magnesium Ferritin Total Bilirubin AST ALT Alkaline Phosphatase Lactate Dehydrogenase Total Creatine Kinase C-Reactive Protein Total Protein Albumin Triglycerides Arterial Blood Glucose Arterial Blood Ionized Calcium Ur Specific [place] Urine WBC (Auto) Vancomycin Trough Coronavirus (PCR) Crossmatch 12/17/20 12/17/20 12/17/20 17:25 17:25 17:51 WBC RBC Hgb Hct MCH MCHC RDW Plt Count Lymph % (Auto) [place] % (Auto) Lymph # (Auto) [place] # (Auto) Baso # (Auto) Seg Neutrophils % Seg Neuts % (Manual) Lymphocytes % (Manual) Nucleated RBC % Seg Neutrophils # Seg Neutrophils # Man Lymphocytes # (Manual) D-Dimer ABG pH POC ABG pCO2 POC ABG pO2 ABG pO2 ABG HCO3 ABG O2 Saturation ABG Base Excess ABG Hemoglobin ABG Oxyhemoglobin ABG Sodium ABG Potassium ABG Chloride ABG Glucose Oxyhemoglobin Carboxyhemoglobin Sodium 134 L Potassium Chloride 89.6 L Carbon Dioxide 44 H* BUN Creatinine 0.2 L Glucose 280 H POC Glucose 260 H Hemoglobin A1c Lactic Acid Calcium 8.0 L Magnesium 1.60 L Ferritin Total Bilirubin AST ALT Alkaline Phosphatase Lactate Dehydrogenase Total Creatine Kinase 47 L C-Reactive Protein Total Protein 6.2 L Albumin 2.1 L Triglycerides Arterial Blood Glucose Arterial Blood Ionized Calcium Ur Specific [place] Urine WBC (Auto) Vancomycin Trough Coronavirus (PCR) Crossmatch 12/18/20 12/18/20 12/18/20 00:12 03:56 04:32 WBC RBC 2.88 L Hgb 8.6 L Hct 26.0 L MCH MCHC RDW 15.6 H Plt Count Lymph % (Auto) [place] % (Auto) Lymph # (Auto) [place] # (Auto) Baso # (Auto) Seg Neutrophils % Seg Neuts % (Manual) Lymphocytes % (Manual) Nucleated RBC % Seg Neutrophils # Seg Neutrophils # Man Lymphocytes # (Manual) D-Dimer ABG pH POC ABG pCO2 78.0 H POC ABG pO2 52.3 L ABG pO2 ABG HCO3 ABG O2 Saturation ABG Base Excess ABG Hemoglobin 11.7 L ABG Oxyhemoglobin 84.9 L ABG Sodium 131.6 L ABG Potassium ABG Chloride 89.0 L ABG Glucose 191 H Oxyhemoglobin Carboxyhemoglobin Sodium Potassium Chloride Carbon Dioxide BUN Creatinine Glucose POC Glucose 197 H Hemoglobin A1c Lactic Acid Calcium Magnesium Ferritin Total Bilirubin AST ALT Alkaline Phosphatase Lactate Dehydrogenase Total Creatine Kinase C-Reactive Protein Total Protein Albumin Triglycerides Arterial Blood Glucose 191 H Arterial Blood Ionized Calcium 4.4 L Ur Specific [place] Urine WBC (Auto) Vancomycin Trough Coronavirus (PCR) Crossmatch 12/18/20 12/18/20 12/18/20 04:32 05:19 08:27 WBC RBC Hgb Hct MCH MCHC RDW Plt Count Lymph % (Auto) [place] % (Auto) Lymph # (Auto) [place] # (Auto) Baso # (Auto) Seg Neutrophils % Seg Neuts % (Manual) Lymphocytes % (Manual) Nucleated RBC % Seg Neutrophils # Seg Neutrophils # Man Lymphocytes # (Manual) D-Dimer ABG pH POC ABG pCO2 POC ABG pO2 ABG pO2 ABG HCO3 ABG O2 Saturation ABG Base Excess ABG Hemoglobin ABG Oxyhemoglobin ABG Sodium ABG Potassium ABG Chloride ABG Glucose Oxyhemoglobin Carboxyhemoglobin Sodium 134 L 131 L Potassium Chloride 89.5 L 89.0 L Carbon Dioxide 43 H* 41 H* BUN Creatinine < 0.2 L < 0.2 L Glucose 182 H 176 H POC Glucose 165 H Hemoglobin A1c Lactic Acid Calcium 8.1 L 7.5 L Magnesium Ferritin Total Bilirubin AST ALT Alkaline Phosphatase Lactate Dehydrogenase Total Creatine Kinase C-Reactive Protein Total Protein Albumin Triglycerides Arterial Blood Glucose Arterial Blood Ionized Calcium Ur Specific [place] Urine WBC (Auto) Vancomycin Trough Coronavirus (PCR) Crossmatch 12/18/20 12/18/20 12/18/20 11:37 17:26 23:19 WBC RBC Hgb Hct MCH MCHC RDW Plt Count Lymph % (Auto) [place] % (Auto) Lymph # (Auto) [place] # (Auto) Baso # (Auto) Seg Neutrophils % Seg Neuts % (Manual) Lymphocytes % (Manual) Nucleated RBC % Seg Neutrophils # Seg Neutrophils # Man Lymphocytes # (Manual) D-Dimer ABG pH POC ABG pCO2 POC ABG pO2 ABG pO2 ABG HCO3 ABG O2 Saturation ABG Base Excess ABG Hemoglobin ABG Oxyhemoglobin ABG Sodium ABG Potassium ABG Chloride ABG Glucose Oxyhemoglobin Carboxyhemoglobin Sodium Potassium Chloride Carbon Dioxide BUN Creatinine Glucose POC Glucose 174 H 243 H 212 H Hemoglobin A1c Lactic Acid Calcium Magnesium Ferritin Total Bilirubin AST ALT Alkaline Phosphatase Lactate Dehydrogenase Total Creatine Kinase C-Reactive Protein Total Protein Albumin Triglycerides Arterial Blood Glucose Arterial Blood Ionized Calcium Ur Specific [place] Urine WBC (Auto) Vancomycin Trough Coronavirus (PCR) Crossmatch 12/19/20 12/19/20 12/19/20 03:41 05:26 11:56 WBC RBC Hgb Hct MCH MCHC RDW Plt Count Lymph % (Auto) [place] % (Auto) Lymph # (Auto) [place] # (Auto) Baso # (Auto) Seg Neutrophils % Seg Neuts % (Manual) Lymphocytes % (Manual) Nucleated RBC % Seg Neutrophils # Seg Neutrophils # Man Lymphocytes # (Manual) D-Dimer ABG pH POC ABG pCO2 75.4 H POC ABG pO2 50.7 L ABG pO2 ABG HCO3 ABG O2 Saturation ABG Base Excess ABG Hemoglobin 10.4 L ABG Oxyhemoglobin 84.2 L ABG Sodium 131.1 L ABG Potassium ABG Chloride 89.0 L ABG Glucose 194 H Oxyhemoglobin Carboxyhemoglobin 1.6 H Sodium Potassium Chloride Carbon Dioxide BUN Creatinine Glucose POC Glucose 166 H 173 H Hemoglobin A1c Lactic Acid Calcium Magnesium Ferritin Total Bilirubin AST ALT Alkaline Phosphatase Lactate Dehydrogenase Total Creatine Kinase C-Reactive Protein Total Protein Albumin Triglycerides Arterial Blood Glucose 194 H Arterial Blood Ionized Calcium 4.3 L Ur Specific [place] Urine WBC (Auto) Vancomycin Trough Coronavirus (PCR) Crossmatch 12/19/20 12/19/20 12/19/20 18:17 23:39 Unknown WBC RBC Hgb Hct MCH MCHC RDW Plt Count Lymph % (Auto) [place] % (Auto) Lymph # (Auto) [place] # (Auto) Baso # (Auto) Seg Neutrophils % Seg Neuts % (Manual) Lymphocytes % (Manual) Nucleated RBC % Seg Neutrophils # Seg Neutrophils # Man Lymphocytes # (Manual) D-Dimer ABG pH POC ABG pCO2 POC ABG pO2 ABG pO2 ABG HCO3 ABG O2 Saturation ABG Base Excess ABG Hemoglobin ABG Oxyhemoglobin ABG Sodium ABG Potassium ABG Chloride ABG Glucose Oxyhemoglobin Carboxyhemoglobin Sodium 133 L Potassium Chloride 89.9 L Carbon Dioxide 39 H BUN Creatinine 0.2 L Glucose 197 H POC Glucose 212 H 133 H Hemoglobin A1c Lactic Acid Calcium 7.6 L Magnesium Ferritin Total Bilirubin AST ALT Alkaline Phosphatase Lactate Dehydrogenase Total Creatine Kinase C-Reactive Protein Total Protein Albumin Triglycerides Arterial Blood Glucose Arterial Blood Ionized Calcium Ur Specific [place] Urine WBC (Auto) Vancomycin Trough Coronavirus (PCR) Crossmatch 12/20/20 12/20/20 12/20/20 03:26 04:00 04:00 WBC RBC 3.21 L Hgb 9.6 L Hct 29.2 L MCH MCHC RDW 15.8 H Plt Count Lymph % (Auto) [place] % (Auto) Lymph # (Auto) [place] # (Auto) Baso # (Auto) Seg Neutrophils % Seg Neuts % (Manual) Lymphocytes % (Manual) Nucleated RBC % Seg Neutrophils # Seg Neutrophils # Man Lymphocytes # (Manual) D-Dimer ABG pH POC ABG pCO2 74.2 H POC ABG pO2 51.3 L ABG pO2 ABG HCO3 ABG O2 Saturation ABG Base Excess ABG Hemoglobin 10.0 L ABG Oxyhemoglobin ABG Sodium 128.9 L ABG Potassium ABG Chloride 87.0 L ABG Glucose 173 H Oxyhemoglobin Carboxyhemoglobin Sodium 132 L Potassium Chloride 86.0 L Carbon Dioxide 43 H* BUN Creatinine 0.2 L Glucose 193 H POC Glucose Hemoglobin A1c Lactic Acid Calcium 7.6 L Magnesium Ferritin Total Bilirubin AST ALT Alkaline Phosphatase Lactate Dehydrogenase Total Creatine Kinase C-Reactive Protein Total Protein Albumin Triglycerides Arterial Blood Glucose 173 H Arterial Blood Ionized Calcium 4.1 L Ur Specific [place] Urine WBC (Auto) Vancomycin Trough Coronavirus (PCR) Crossmatch 12/20/20 12/20/20 12/20/20 05:05 11:47 18:18 WBC RBC Hgb Hct MCH MCHC RDW Plt Count Lymph % (Auto) [place] % (Auto) Lymph # (Auto) [place] # (Auto) Baso # (Auto) Seg Neutrophils % Seg Neuts % (Manual) Lymphocytes % (Manual) Nucleated RBC % Seg Neutrophils # Seg Neutrophils # Man Lymphocytes # (Manual) D-Dimer ABG pH POC ABG pCO2 POC ABG pO2 ABG pO2 ABG HCO3 ABG O2 Saturation ABG Base Excess ABG Hemoglobin ABG Oxyhemoglobin ABG Sodium ABG Potassium ABG Chloride ABG Glucose Oxyhemoglobin Carboxyhemoglobin Sodium Potassium Chloride Carbon Dioxide BUN Creatinine Glucose POC Glucose 171 H 238 H 205 H Hemoglobin A1c Lactic Acid Calcium Magnesium Ferritin Total Bilirubin AST ALT Alkaline Phosphatase Lactate Dehydrogenase Total Creatine Kinase C-Reactive Protein Total Protein Albumin Triglycerides Arterial Blood Glucose Arterial Blood Ionized Calcium Ur Specific [place] Urine WBC (Auto) Vancomycin Trough Coronavirus (PCR) Crossmatch 12/20/20 12/21/20 12/21/20 23:41 03:30 05:37 WBC RBC Hgb Hct MCH MCHC RDW Plt Count Lymph % (Auto) [place] % (Auto) Lymph # (Auto) [place] # (Auto) Baso # (Auto) Seg Neutrophils % Seg Neuts % (Manual) Lymphocytes % (Manual) Nucleated RBC % Seg Neutrophils # Seg Neutrophils # Man Lymphocytes # (Manual) D-Dimer ABG pH POC ABG pCO2 73.4 H POC ABG pO2 63.0 L ABG pO2 ABG HCO3 ABG O2 Saturation ABG Base Excess ABG Hemoglobin 10.1 L ABG Oxyhemoglobin ABG Sodium 130.5 L ABG Potassium ABG Chloride 89.0 L ABG Glucose 171 H Oxyhemoglobin Carboxyhemoglobin Sodium Potassium Chloride Carbon Dioxide BUN Creatinine Glucose POC Glucose 167 H 152 H Hemoglobin A1c Lactic Acid Calcium Magnesium Ferritin Total Bilirubin AST ALT Alkaline Phosphatase Lactate Dehydrogenase Total Creatine Kinase C-Reactive Protein Total Protein Albumin Triglycerides Arterial Blood Glucose 171 H Arterial Blood Ionized Calcium 4.2 L Ur Specific [place] Urine WBC (Auto) Vancomycin Trough Coronavirus (PCR) Crossmatch 12/21/20 12/21/20 12/21/20 09:57 12:54 18:00 WBC RBC Hgb Hct MCH MCHC RDW Plt Count Lymph % (Auto) [place] % (Auto) Lymph # (Auto) [place] # (Auto) Baso # (Auto) Seg Neutrophils % Seg Neuts % (Manual) Lymphocytes % (Manual) Nucleated RBC % Seg Neutrophils # Seg Neutrophils # Man Lymphocytes # (Manual) D-Dimer ABG pH POC ABG pCO2 POC ABG pO2 ABG pO2 ABG HCO3 ABG O2 Saturation ABG Base Excess ABG Hemoglobin ABG Oxyhemoglobin ABG Sodium ABG Potassium ABG Chloride ABG Glucose Oxyhemoglobin Carboxyhemoglobin Sodium 132 L Potassium Chloride 87.7 L Carbon Dioxide 42 H* BUN Creatinine 0.2 L Glucose 207 H POC Glucose 199 H 217 H Hemoglobin A1c Lactic Acid Calcium 7.7 L Magnesium Ferritin Total Bilirubin AST ALT Alkaline Phosphatase Lactate Dehydrogenase Total Creatine Kinase C-Reactive Protein Total Protein Albumin Triglycerides Arterial Blood Glucose Arterial Blood Ionized Calcium Ur Specific [place] Urine WBC (Auto) Vancomycin Trough Coronavirus (PCR) Crossmatch 12/21/20 12/22/20 12/22/20 Unknown 00:02 04:08 WBC RBC Hgb Hct MCH MCHC RDW Plt Count Lymph % (Auto) [place] % (Auto) Lymph # (Auto) [place] # (Auto) Baso # (Auto) Seg Neutrophils % Seg Neuts % (Manual) Lymphocytes % (Manual) Nucleated RBC % Seg Neutrophils # Seg Neutrophils # Man Lymphocytes # (Manual) D-Dimer ABG pH POC ABG pCO2 67.6 H POC ABG pO2 57.3 L ABG pO2 ABG HCO3 ABG O2 Saturation ABG Base Excess ABG Hemoglobin ABG Oxyhemoglobin ABG Sodium 130.9 L ABG Potassium ABG Chloride 92.0 L ABG Glucose 163 H Oxyhemoglobin Carboxyhemoglobin Sodium Potassium Chloride Carbon Dioxide BUN Creatinine Glucose POC Glucose 172 H Hemoglobin A1c Lactic Acid Calcium Magnesium Ferritin Total Bilirubin AST ALT Alkaline Phosphatase Lactate Dehydrogenase Total Creatine Kinase C-Reactive Protein Total Protein Albumin Triglycerides Arterial Blood Glucose 163 H Arterial Blood Ionized Calcium 4.2 L Ur Specific [place] Urine WBC (Auto) 172.0 H Vancomycin Trough Coronavirus (PCR) Crossmatch 12/22/20 12/22/20 12/22/20 05:19 11:33 17:20 WBC RBC Hgb Hct MCH MCHC RDW Plt Count Lymph % (Auto) [place] % (Auto) Lymph # (Auto) [place] # (Auto) Baso # (Auto) Seg Neutrophils % Seg Neuts % (Manual) Lymphocytes % (Manual) Nucleated RBC % Seg Neutrophils # Seg Neutrophils # Man Lymphocytes # (Manual) D-Dimer ABG pH POC ABG pCO2 POC ABG pO2 ABG pO2 ABG HCO3 ABG O2 Saturation ABG Base Excess ABG Hemoglobin ABG Oxyhemoglobin ABG Sodium ABG Potassium ABG Chloride ABG Glucose Oxyhemoglobin Carboxyhemoglobin Sodium Potassium Chloride Carbon Dioxide BUN Creatinine Glucose POC Glucose 151 H 181 H 166 H Hemoglobin A1c Lactic Acid Calcium Magnesium Ferritin Total Bilirubin AST ALT Alkaline Phosphatase Lactate Dehydrogenase Total Creatine Kinase C-Reactive Protein Total Protein Albumin Triglycerides Arterial Blood Glucose Arterial Blood Ionized Calcium Ur Specific [place] Urine WBC (Auto) Vancomycin Trough Coronavirus (PCR) Crossmatch 12/22/20 12/23/20 12/23/20 23:25 05:19 05:32 WBC RBC Hgb Hct MCH MCHC RDW Plt Count Lymph % (Auto) [place] % (Auto) Lymph # (Auto) [place] # (Auto) Baso # (Auto) Seg Neutrophils % Seg Neuts % (Manual) Lymphocytes % (Manual) Nucleated RBC % Seg Neutrophils # Seg Neutrophils # Man Lymphocytes # (Manual) D-Dimer ABG pH POC ABG pCO2 67.7 H POC ABG pO2 53.7 L ABG pO2 ABG HCO3 ABG O2 Saturation ABG Base Excess ABG Hemoglobin 9.6 L ABG Oxyhemoglobin ABG Sodium 130.2 L ABG Potassium ABG Chloride 88.0 L ABG Glucose 195 H Oxyhemoglobin Carboxyhemoglobin Sodium Potassium Chloride Carbon Dioxide BUN Creatinine Glucose POC Glucose 121 H 167 H Hemoglobin A1c Lactic Acid Calcium Magnesium Ferritin Total Bilirubin AST ALT Alkaline Phosphatase Lactate Dehydrogenase Total Creatine Kinase C-Reactive Protein Total Protein Albumin Triglycerides Arterial Blood Glucose 195 H Arterial Blood Ionized Calcium 4.1 L Ur Specific [place] Urine WBC (Auto) Vancomycin Trough Coronavirus (PCR) Crossmatch 12/23/20 12/23/20 12/23/20 06:07 11:21 18:10 WBC RBC Hgb Hct MCH MCHC RDW Plt Count Lymph % (Auto) [place] % (Auto) Lymph # (Auto) [place] # (Auto) Baso # (Auto) Seg Neutrophils % Seg Neuts % (Manual) Lymphocytes % (Manual) Nucleated RBC % Seg Neutrophils # Seg Neutrophils # Man Lymphocytes # (Manual) D-Dimer ABG pH POC ABG pCO2 POC ABG pO2 ABG pO2 ABG HCO3 ABG O2 Saturation ABG Base Excess ABG Hemoglobin ABG Oxyhemoglobin ABG Sodium ABG Potassium ABG Chloride ABG Glucose Oxyhemoglobin Carboxyhemoglobin Sodium 135 L Potassium Chloride 89.3 L Carbon Dioxide 43 H* BUN Creatinine 0.2 L Glucose 193 H POC Glucose 155 H 178 H Hemoglobin A1c Lactic Acid Calcium 7.4 L Magnesium Ferritin Total Bilirubin AST ALT Alkaline Phosphatase Lactate Dehydrogenase Total Creatine Kinase C-Reactive Protein Total Protein Albumin Triglycerides Arterial Blood Glucose Arterial Blood Ionized Calcium Ur Specific [place] Urine WBC (Auto) Vancomycin Trough Coronavirus (PCR) Crossmatch 12/23/20 12/24/20 12/24/20 23:21 04:49 05:00 WBC RBC Hgb Hct MCH MCHC RDW Plt Count Lymph % (Auto) [place] % (Auto) Lymph # (Auto) [place] # (Auto) Baso # (Auto) Seg Neutrophils % Seg Neuts % (Manual) Lymphocytes % (Manual) Nucleated RBC % Seg Neutrophils # Seg Neutrophils # Man Lymphocytes # (Manual) D-Dimer ABG pH POC ABG pCO2 75.5 H POC ABG pO2 50.5 L ABG pO2 ABG HCO3 ABG O2 Saturation ABG Base Excess ABG Hemoglobin 8.8 L ABG Oxyhemoglobin 86.3 L ABG Sodium 131.6 L ABG Potassium ABG Chloride 88.0 L ABG Glucose 186 H Oxyhemoglobin Carboxyhemoglobin 2.1 H Sodium Potassium Chloride Carbon Dioxide BUN Creatinine Glucose POC Glucose 126 H Hemoglobin A1c Lactic Acid Calcium Magnesium Ferritin Total Bilirubin AST ALT Alkaline Phosphatase Lactate Dehydrogenase Total Creatine Kinase C-Reactive Protein Total Protein Albumin Triglycerides 486 H Arterial Blood Glucose 186 H Arterial Blood Ionized Calcium 4.0 L Ur Specific [place] Urine WBC (Auto) Vancomycin Trough Coronavirus (PCR) Crossmatch 12/24/20 12/24/20 12/24/20 05:19 11:57 16:44 WBC RBC Hgb Hct MCH MCHC RDW Plt Count Lymph % (Auto) [place] % (Auto) Lymph # (Auto) [place] # (Auto) Baso # (Auto) Seg Neutrophils % Seg Neuts % (Manual) Lymphocytes % (Manual) Nucleated RBC % Seg Neutrophils # Seg Neutrophils # Man Lymphocytes # (Manual) D-Dimer ABG pH POC ABG pCO2 POC ABG pO2 ABG pO2 ABG HCO3 ABG O2 Saturation ABG Base Excess ABG Hemoglobin ABG Oxyhemoglobin ABG Sodium ABG Potassium ABG Chloride ABG Glucose Oxyhemoglobin Carboxyhemoglobin Sodium Potassium Chloride Carbon Dioxide BUN Creatinine Glucose POC Glucose 162 H 163 H 191 H Hemoglobin A1c Lactic Acid Calcium Magnesium Ferritin Total Bilirubin AST ALT Alkaline Phosphatase Lactate Dehydrogenase Total Creatine Kinase C-Reactive Protein Total Protein Albumin Triglycerides Arterial Blood Glucose Arterial Blood Ionized Calcium Ur Specific [place] Urine WBC (Auto) Vancomycin Trough Coronavirus (PCR) Crossmatch 12/24/20 12/24/20 12/24/20 17:28 18:57 20:48 WBC 19.1 H RBC 2.91 L Hgb 8.3 L Hct 26.0 L MCH MCHC RDW 16.0 H Plt Count Lymph % (Auto) [place] % (Auto) Lymph # (Auto) [place] # (Auto) Baso # (Auto) Seg Neutrophils % Seg Neuts % (Manual) 92.0 H Lymphocytes % (Manual) 5.0 L Nucleated RBC % Seg Neutrophils # Seg Neutrophils # Man 17.6 H Lymphocytes # (Manual) 1.0 L D-Dimer ABG pH 7.250 L POC ABG pCO2 102.6 H 82.1 H POC ABG pO2 42.4 L 38.6 L ABG pO2 ABG HCO3 ABG O2 Saturation ABG Base Excess ABG Hemoglobin 9.0 L 9.3 L ABG Oxyhemoglobin 69.9 L 70.8 L ABG Sodium 131.1 L 130.7 L ABG Potassium ABG Chloride 89.0 L 89.0 L ABG Glucose 211 H 226 H Oxyhemoglobin Carboxyhemoglobin 1.7 H 1.8 H Sodium Potassium Chloride Carbon Dioxide BUN Creatinine Glucose POC Glucose Hemoglobin A1c Lactic Acid Calcium Magnesium Ferritin Total Bilirubin AST ALT Alkaline Phosphatase Lactate Dehydrogenase Total Creatine Kinase C-Reactive Protein Total Protein Albumin Triglycerides Arterial Blood Glucose 211 H 226 H Arterial Blood Ionized Calcium 4.0 L 4.1 L Ur Specific [place] Urine WBC (Auto) Vancomycin Trough Coronavirus (PCR) Crossmatch 12/24/20 12/25/20 12/25/20 23:31 04:04 06:31 WBC RBC Hgb Hct MCH MCHC RDW Plt Count Lymph % (Auto) [place] % (Auto) Lymph # (Auto) [place] # (Auto) Baso # (Auto) Seg Neutrophils % Seg Neuts % (Manual) Lymphocytes % (Manual) Nucleated RBC % Seg Neutrophils # Seg Neutrophils # Man Lymphocytes # (Manual) D-Dimer ABG pH POC ABG pCO2 75.6 H POC ABG pO2 43.3 L ABG pO2 ABG HCO3 ABG O2 Saturation ABG Base Excess ABG Hemoglobin 10.6 L ABG Oxyhemoglobin 77.6 L ABG Sodium 131.4 L ABG Potassium ABG Chloride 90.0 L ABG Glucose 185 H Oxyhemoglobin Carboxyhemoglobin 2.4 H Sodium Potassium Chloride Carbon Dioxide BUN Creatinine Glucose POC Glucose 181 H 153 H Hemoglobin A1c Lactic Acid Calcium Magnesium Ferritin Total Bilirubin AST ALT Alkaline Phosphatase Lactate Dehydrogenase Total Creatine Kinase C-Reactive Protein Total Protein Albumin Triglycerides Arterial Blood Glucose 185 H Arterial Blood Ionized Calcium 4.1 L Ur Specific [place] Urine WBC (Auto) Vancomycin Trough Coronavirus (PCR) Crossmatch 12/25/20 12/25/20 12/25/20 11:17 11:17 11:17 WBC 19.6 H RBC 2.82 L Hgb 8.1 L Hct 25.2 L MCH MCHC RDW 16.2 H Plt Count Lymph % (Auto) [place] % (Auto) Lymph # (Auto) [place] # (Auto) Baso # (Auto) Seg Neutrophils % Seg Neuts % (Manual) Lymphocytes % (Manual) Nucleated RBC % Seg Neutrophils # Seg Neutrophils # Man Lymphocytes # (Manual) D-Dimer ABG pH POC ABG pCO2 POC ABG pO2 ABG pO2 ABG HCO3 ABG O2 Saturation ABG Base Excess ABG Hemoglobin ABG Oxyhemoglobin ABG Sodium ABG Potassium ABG Chloride ABG Glucose Oxyhemoglobin Carboxyhemoglobin Sodium 136 L Potassium Chloride 92.3 L Carbon Dioxide 44 H* BUN Creatinine 0.3 L Glucose 240 H POC Glucose Hemoglobin A1c Lactic Acid Calcium 7.3 L Magnesium Ferritin Total Bilirubin AST ALT Alkaline Phosphatase Lactate Dehydrogenase Total Creatine Kinase C-Reactive Protein Total Protein Albumin Triglycerides 328 H Arterial Blood Glucose Arterial Blood Ionized Calcium Ur Specific [place] Urine WBC (Auto) Vancomycin Trough Coronavirus (PCR) Crossmatch 12/25/20 12/25/20 12/25/20 12:07 17:52 21:49 WBC RBC Hgb Hct MCH MCHC RDW Plt Count Lymph % (Auto) [place] % (Auto) Lymph # (Auto) [place] # (Auto) Baso # (Auto) Seg Neutrophils % Seg Neuts % (Manual) Lymphocytes % (Manual) Nucleated RBC % Seg Neutrophils # Seg Neutrophils # Man Lymphocytes # (Manual) D-Dimer ABG pH POC ABG pCO2 POC ABG pO2 ABG pO2 ABG HCO3 ABG O2 Saturation ABG Base Excess ABG Hemoglobin ABG Oxyhemoglobin ABG Sodium ABG Potassium ABG Chloride ABG Glucose Oxyhemoglobin Carboxyhemoglobin Sodium Potassium Chloride Carbon Dioxide BUN Creatinine Glucose POC Glucose 210 H 188 H 152 H Hemoglobin A1c Lactic Acid Calcium Magnesium Ferritin Total Bilirubin AST ALT Alkaline Phosphatase Lactate Dehydrogenase Total Creatine Kinase C-Reactive Protein Total Protein Albumin Triglycerides Arterial Blood Glucose Arterial Blood Ionized Calcium Ur Specific [place] Urine WBC (Auto) Vancomycin Trough Coronavirus (PCR) Crossmatch 12/25/20 12/26/20 12/26/20 23:47 04:00 05:20 WBC RBC Hgb Hct MCH MCHC RDW Plt Count Lymph % (Auto) [place] % (Auto) Lymph # (Auto) [place] # (Auto) Baso # (Auto) Seg Neutrophils % Seg Neuts % (Manual) Lymphocytes % (Manual) Nucleated RBC % Seg Neutrophils # Seg Neutrophils # Man Lymphocytes # (Manual) D-Dimer ABG pH POC ABG pCO2 73.4 H POC ABG pO2 58.8 L ABG pO2 ABG HCO3 ABG O2 Saturation ABG Base Excess ABG Hemoglobin 7.4 L ABG Oxyhemoglobin ABG Sodium 135.2 L ABG Potassium ABG Chloride 96.0 L ABG Glucose 164 H Oxyhemoglobin Carboxyhemoglobin Sodium Potassium Chloride Carbon Dioxide BUN Creatinine Glucose POC Glucose 138 H 147 H Hemoglobin A1c Lactic Acid Calcium Magnesium Ferritin Total Bilirubin AST ALT Alkaline Phosphatase Lactate Dehydrogenase Total Creatine Kinase C-Reactive Protein Total Protein Albumin Triglycerides Arterial Blood Glucose 164 H Arterial Blood Ionized Calcium 4.1 L Ur Specific [place] Urine WBC (Auto) Vancomycin Trough Coronavirus (PCR) Crossmatch 12/26/20 12/26/20 12/26/20 05:26 05:26 05:26 WBC 16.2 H RBC 2.75 L Hgb 7.8 L Hct 24.1 L MCH MCHC RDW 16.3 H Plt Count 451 H Lymph % (Auto) [place] % (Auto) Lymph # (Auto) [place] # (Auto) Baso # (Auto) Seg Neutrophils % Seg Neuts % (Manual) 87.0 H Lymphocytes % (Manual) Nucleated RBC % 5.0 H Seg Neutrophils # Seg Neutrophils # Man 14.1 H Lymphocytes # (Manual) 0.0 L D-Dimer ABG pH POC ABG pCO2 POC ABG pO2 ABG pO2 ABG HCO3 ABG O2 Saturation ABG Base Excess ABG Hemoglobin ABG Oxyhemoglobin ABG Sodium ABG Potassium ABG Chloride ABG Glucose Oxyhemoglobin Carboxyhemoglobin Sodium Potassium Chloride 95.2 L Carbon Dioxide 44 H* BUN Creatinine 0.2 L Glucose 155 H POC Glucose Hemoglobin A1c Lactic Acid Calcium 7.4 L Magnesium Ferritin Total Bilirubin AST ALT Alkaline Phosphatase Lactate Dehydrogenase Total Creatine Kinase C-Reactive Protein Total Protein 6.0 L Albumin 1.6 L Triglycerides 307 H Arterial Blood Glucose Arterial Blood Ionized Calcium Ur Specific [place] Urine WBC (Auto) Vancomycin Trough Coronavirus (PCR) Crossmatch 12/26/20 12/26/20 12/26/20 11:21 17:26 23:22 WBC RBC Hgb Hct MCH MCHC RDW Plt Count Lymph % (Auto) [place] % (Auto) Lymph # (Auto) [place] # (Auto) Baso # (Auto) Seg Neutrophils % Seg Neuts % (Manual) Lymphocytes % (Manual) Nucleated RBC % Seg Neutrophils # Seg Neutrophils # Man Lymphocytes # (Manual) D-Dimer ABG pH POC ABG pCO2 POC ABG pO2 ABG pO2 ABG HCO3 ABG O2 Saturation ABG Base Excess ABG Hemoglobin ABG Oxyhemoglobin ABG Sodium ABG Potassium ABG Chloride ABG Glucose Oxyhemoglobin Carboxyhemoglobin Sodium Potassium Chloride Carbon Dioxide BUN Creatinine Glucose POC Glucose 127 H 134 H 125 H Hemoglobin A1c Lactic Acid Calcium Magnesium Ferritin Total Bilirubin AST ALT Alkaline Phosphatase Lactate Dehydrogenase Total Creatine Kinase C-Reactive Protein Total Protein Albumin Triglycerides Arterial Blood Glucose Arterial Blood Ionized Calcium Ur Specific [place] Urine WBC (Auto) Vancomycin Trough Coronavirus (PCR) Crossmatch 12/27/20 12/27/20 12/27/20 03:19 05:17 10:52 WBC RBC Hgb Hct MCH MCHC RDW Plt Count Lymph % (Auto) [place] % (Auto) Lymph # (Auto) [place] # (Auto) Baso # (Auto) Seg Neutrophils % Seg Neuts % (Manual) Lymphocytes % (Manual) Nucleated RBC % Seg Neutrophils # Seg Neutrophils # Man Lymphocytes # (Manual) D-Dimer ABG pH POC ABG pCO2 75.0 H POC ABG pO2 74.3 L ABG pO2 ABG HCO3 ABG O2 Saturation ABG Base Excess ABG Hemoglobin 7.3 L ABG Oxyhemoglobin 92.8 L ABG Sodium 135.6 L ABG Potassium ABG Chloride ABG Glucose 151 H Oxyhemoglobin Carboxyhemoglobin 2.0 H Sodium 136 L Potassium Chloride 96.8 L Carbon Dioxide 38 H BUN Creatinine 0.2 L Glucose 139 H POC Glucose 121 H Hemoglobin A1c Lactic Acid Calcium 7.0 L Magnesium Ferritin Total Bilirubin AST 52 H ALT Alkaline Phosphatase Lactate Dehydrogenase Total Creatine Kinase C-Reactive Protein Total Protein 4.7 L D Albumin 1.1 L Triglycerides Arterial Blood Glucose 151 H Arterial Blood Ionized Calcium 4.2 L Ur Specific [place] Urine WBC (Auto) Vancomycin Trough Coronavirus (PCR) Crossmatch 12/27/20 12/27/20 12/27/20 12:02 14:09 17:36 WBC 14.4 H RBC 2.82 L Hgb 8.0 L Hct 25.6 L MCH MCHC 31 L RDW 16.4 H Plt Count 442 H Lymph % (Auto) [place] % (Auto) Lymph # (Auto) [place] # (Auto) Baso # (Auto) Seg Neutrophils % Seg Neuts % (Manual) 36.0 L Lymphocytes % (Manual) 7.0 L Nucleated RBC % 18.0 H Seg Neutrophils # Seg Neutrophils # Man Lymphocytes # (Manual) 1.0 L D-Dimer ABG pH POC ABG pCO2 POC ABG pO2 ABG pO2 ABG HCO3 ABG O2 Saturation ABG Base Excess ABG Hemoglobin ABG Oxyhemoglobin ABG Sodium ABG Potassium ABG Chloride ABG Glucose Oxyhemoglobin Carboxyhemoglobin Sodium Potassium Chloride Carbon Dioxide BUN Creatinine Glucose POC Glucose 126 H 107 H Hemoglobin A1c Lactic Acid Calcium Magnesium Ferritin Total Bilirubin AST ALT Alkaline Phosphatase Lactate Dehydrogenase Total Creatine Kinase C-Reactive Protein Total Protein Albumin Triglycerides Arterial Blood Glucose Arterial Blood Ionized Calcium Ur Specific [place] Urine WBC (Auto) Vancomycin Trough Coronavirus (PCR) Crossmatch 12/27/20 12/28/20 12/28/20 22:58 03:48 05:45 WBC 13.4 H RBC 2.78 L Hgb 7.9 L Hct 25.1 L MCH MCHC RDW 16.4 H Plt Count 484 H Lymph % (Auto) [place] % (Auto) Lymph # (Auto) [place] # (Auto) Baso # (Auto) Seg Neutrophils % Seg Neuts % (Manual) 86.0 H Lymphocytes % (Manual) 2.0 L Nucleated RBC % 2.0 H Seg Neutrophils # Seg Neutrophils # Man 11.5 H Lymphocytes # (Manual) 0.3 L D-Dimer ABG pH POC ABG pCO2 73.1 H POC ABG pO2 66.2 L ABG pO2 ABG HCO3 ABG O2 Saturation ABG Base Excess ABG Hemoglobin 8.9 L ABG Oxyhemoglobin 90.3 L ABG Sodium ABG Potassium 3.3 L ABG Chloride ABG Glucose 107 H Oxyhemoglobin Carboxyhemoglobin 1.6 H Sodium Potassium Chloride Carbon Dioxide BUN Creatinine Glucose POC Glucose 130 H Hemoglobin A1c Lactic Acid Calcium Magnesium Ferritin Total Bilirubin AST ALT Alkaline Phosphatase Lactate Dehydrogenase Total Creatine Kinase C-Reactive Protein Total Protein Albumin Triglycerides Arterial Blood Glucose 107 H Arterial Blood Ionized Calcium 4.4 L Ur Specific [place] Urine WBC (Auto) Vancomycin Trough Coronavirus (PCR) Crossmatch 12/28/20 12/29/20 12/29/20 05:45 04:00 04:00 WBC 18.0 H RBC 2.80 L Hgb 8.0 L Hct 25.3 L MCH MCHC RDW 17.1 H Plt Count 486 H Lymph % (Auto) [place] % (Auto) Lymph # (Auto) [place] # (Auto) Baso # (Auto) Seg Neutrophils % Seg Neuts % (Manual) 83.0 H Lymphocytes % (Manual) 10.0 L Nucleated RBC % 2.0 H Seg Neutrophils # Seg Neutrophils # Man 14.9 H Lymphocytes # (Manual) D-Dimer ABG pH POC ABG pCO2 POC ABG pO2 ABG pO2 ABG HCO3 ABG O2 Saturation ABG Base Excess ABG Hemoglobin ABG Oxyhemoglobin ABG Sodium ABG Potassium ABG Chloride ABG Glucose Oxyhemoglobin Carboxyhemoglobin Sodium Potassium 3.2 L D Chloride Carbon Dioxide 41 H* 38 H BUN Creatinine 0.3 L 0.3 L Glucose 135 H POC Glucose Hemoglobin A1c Lactic Acid Calcium 7.3 L 7.5 L Magnesium Ferritin Total Bilirubin AST ALT Alkaline Phosphatase Lactate Dehydrogenase Total Creatine Kinase C-Reactive Protein Total Protein 6.0 L D 6.1 L Albumin 1.4 L 1.5 L Triglycerides 284 H Arterial Blood Glucose Arterial Blood Ionized Calcium Ur Specific [place] Urine WBC (Auto) Vancomycin Trough Coronavirus (PCR) Crossmatch 12/29/20 12/29/20 12/29/20 04:00 05:42 11:54 WBC RBC Hgb Hct MCH MCHC RDW Plt Count Lymph % (Auto) [place] % (Auto) Lymph # (Auto) [place] # (Auto) Baso # (Auto) Seg Neutrophils % Seg Neuts % (Manual) Lymphocytes % (Manual) Nucleated RBC % Seg Neutrophils # Seg Neutrophils # Man Lymphocytes # (Manual) D-Dimer ABG pH 7.319 L POC ABG pCO2 71.0 H POC ABG pO2 65.2 L ABG pO2 ABG HCO3 ABG O2 Saturation ABG Base Excess ABG Hemoglobin 8.7 L ABG Oxyhemoglobin ABG Sodium ABG Potassium ABG Chloride ABG Glucose 140 H Oxyhemoglobin Carboxyhemoglobin Sodium Potassium Chloride Carbon Dioxide BUN Creatinine Glucose POC Glucose 126 H 128 H Hemoglobin A1c Lactic Acid Calcium Magnesium Ferritin Total Bilirubin AST ALT Alkaline Phosphatase Lactate Dehydrogenase Total Creatine Kinase C-Reactive Protein Total Protein Albumin Triglycerides Arterial Blood Glucose 140 H Arterial Blood Ionized Calcium 4.3 L Ur Specific [place] Urine WBC (Auto) Vancomycin Trough Coronavirus (PCR) Crossmatch 12/29/20 12/29/20 12/30/20 17:54 23:47 04:00 WBC 15.0 H RBC 2.89 L Hgb 8.2 L Hct 26.1 L MCH MCHC RDW 17.3 H Plt Count Lymph % (Auto) 9.2 L [place] % (Auto) Lymph # (Auto) [place] # (Auto) Baso # (Auto) Seg Neutrophils % 87.0 H Seg Neuts % (Manual) Lymphocytes % (Manual) Nucleated RBC % Seg Neutrophils # 13.1 H Seg Neutrophils # Man Lymphocytes # (Manual) D-Dimer ABG pH POC ABG pCO2 POC ABG pO2 ABG pO2 ABG HCO3 ABG O2 Saturation ABG Base Excess ABG Hemoglobin ABG Oxyhemoglobin ABG Sodium ABG Potassium ABG Chloride ABG Glucose Oxyhemoglobin Carboxyhemoglobin Sodium Potassium Chloride Carbon Dioxide BUN Creatinine Glucose POC Glucose 155 H 139 H Hemoglobin A1c Lactic Acid Calcium Magnesium Ferritin Total Bilirubin AST ALT Alkaline Phosphatase Lactate Dehydrogenase Total Creatine Kinase C-Reactive Protein Total Protein Albumin Triglycerides Arterial Blood Glucose Arterial Blood Ionized Calcium Ur Specific [place] Urine WBC (Auto) Vancomycin Trough Coronavirus (PCR) Crossmatch 12/30/20 12/30/20 12/30/20 04:00 04:14 05:25 WBC RBC Hgb Hct MCH MCHC RDW Plt Count Lymph % (Auto) [place] % (Auto) Lymph # (Auto) [place] # (Auto) Baso # (Auto) Seg Neutrophils % Seg Neuts % (Manual) Lymphocytes % (Manual) Nucleated RBC % Seg Neutrophils # Seg Neutrophils # Man Lymphocytes # (Manual) D-Dimer ABG pH POC ABG pCO2 69.3 H POC ABG pO2 61.3 L ABG pO2 ABG HCO3 ABG O2 Saturation ABG Base Excess ABG Hemoglobin 9.1 L ABG Oxyhemoglobin 88.0 L ABG Sodium ABG Potassium ABG Chloride ABG Glucose 159 H Oxyhemoglobin Carboxyhemoglobin 1.8 H Sodium Potassium Chloride Carbon Dioxide 37 H BUN Creatinine 0.3 L Glucose 156 H POC Glucose 141 H Hemoglobin A1c Lactic Acid Calcium 7.6 L Magnesium Ferritin Total Bilirubin AST ALT Alkaline Phosphatase Lactate Dehydrogenase Total Creatine Kinase C-Reactive Protein Total Protein 6.0 L Albumin 1.4 L Triglycerides Arterial Blood Glucose 159 H Arterial Blood Ionized Calcium 4.4 L Ur Specific [place] Urine WBC (Auto) Vancomycin Trough Coronavirus (PCR) Crossmatch 12/30/20 12/30/20 12/30/20 12:18 17:37 23:55 WBC RBC Hgb Hct MCH MCHC RDW Plt Count Lymph % (Auto) [place] % (Auto) Lymph # (Auto) [place] # (Auto) Baso # (Auto) Seg Neutrophils % Seg Neuts % (Manual) Lymphocytes % (Manual) Nucleated RBC % Seg Neutrophils # Seg Neutrophils # Man Lymphocytes # (Manual) D-Dimer ABG pH POC ABG pCO2 POC ABG pO2 ABG pO2 ABG HCO3 ABG O2 Saturation ABG Base Excess ABG Hemoglobin ABG Oxyhemoglobin ABG Sodium ABG Potassium ABG Chloride ABG Glucose Oxyhemoglobin Carboxyhemoglobin Sodium Potassium Chloride Carbon Dioxide BUN Creatinine Glucose POC Glucose 147 H 167 H 141 H Hemoglobin A1c Lactic Acid Calcium Magnesium Ferritin Total Bilirubin AST ALT Alkaline Phosphatase Lactate Dehydrogenase Total Creatine Kinase C-Reactive Protein Total Protein Albumin Triglycerides Arterial Blood Glucose Arterial Blood Ionized Calcium Ur Specific [place] Urine WBC (Auto) Vancomycin Trough Coronavirus (PCR) Crossmatch 12/31/20 12/31/20 12/31/20 04:00 05:32 06:19 WBC RBC Hgb Hct MCH MCHC RDW Plt Count Lymph % (Auto) [place] % (Auto) Lymph # (Auto) [place] # (Auto) Baso # (Auto) Seg Neutrophils % Seg Neuts % (Manual) Lymphocytes % (Manual) Nucleated RBC % Seg Neutrophils # Seg Neutrophils # Man Lymphocytes # (Manual) D-Dimer ABG pH 7.316 L POC ABG pCO2 POC ABG pO2 ABG pO2 56.9 L ABG HCO3 38.0 H ABG O2 Saturation 90.4 L ABG Base Excess 11.1 H ABG Hemoglobin 5.1 L ABG Oxyhemoglobin ABG Sodium ABG Potassium ABG Chloride ABG Glucose Oxyhemoglobin 87.7 L Carboxyhemoglobin Sodium Potassium Chloride Carbon Dioxide 37 H BUN Creatinine 0.3 L Glucose 152 H POC Glucose 158 H Hemoglobin A1c Lactic Acid Calcium 7.3 L Magnesium Ferritin Total Bilirubin AST ALT Alkaline Phosphatase Lactate Dehydrogenase Total Creatine Kinase C-Reactive Protein Total Protein 6.1 L Albumin 1.4 L Triglycerides Arterial Blood Glucose Arterial Blood Ionized Calcium Ur Specific [place] Urine WBC (Auto) Vancomycin Trough Coronavirus (PCR) Crossmatch 12/31/20 12/31/20 12/31/20 12:22 18:17 23:37 WBC RBC Hgb Hct MCH MCHC RDW Plt Count Lymph % (Auto) [place] % (Auto) Lymph # (Auto) [place] # (Auto) Baso # (Auto) Seg Neutrophils % Seg Neuts % (Manual) Lymphocytes % (Manual) Nucleated RBC % Seg Neutrophils # Seg Neutrophils # Man Lymphocytes # (Manual) D-Dimer ABG pH POC ABG pCO2 POC ABG pO2 ABG pO2 ABG HCO3 ABG O2 Saturation ABG Base Excess ABG Hemoglobin ABG Oxyhemoglobin ABG Sodium ABG Potassium ABG Chloride ABG Glucose Oxyhemoglobin Carboxyhemoglobin Sodium Potassium Chloride Carbon Dioxide BUN Creatinine Glucose POC Glucose 131 H 136 H 139 H Hemoglobin A1c Lactic Acid Calcium Magnesium Ferritin Total Bilirubin AST ALT Alkaline Phosphatase Lactate Dehydrogenase Total Creatine Kinase C-Reactive Protein Total Protein Albumin Triglycerides Arterial Blood Glucose Arterial Blood Ionized Calcium Ur Specific [place] Urine WBC (Auto) Vancomycin Trough Coronavirus (PCR) Crossmatch 12/31/20 01/01/21 01/01/21 Unknown 04:50 05:10 WBC 16.2 H RBC 2.89 L Hgb 8.0 L Hct 25.9 L MCH MCHC 31 L RDW 18.2 H Plt Count 458 H Lymph % (Auto) [place] % (Auto) Lymph # (Auto) [place] # (Auto) Baso # (Auto) Seg Neutrophils % Seg Neuts % (Manual) 96.0 H Lymphocytes % (Manual) 3.0 L Nucleated RBC % 3.0 H Seg Neutrophils # Seg Neutrophils # Man 15.6 H Lymphocytes # (Manual) 0.5 L D-Dimer ABG pH 7.268 L POC ABG pCO2 POC ABG pO2 ABG pO2 56.9 L ABG HCO3 38.8 H ABG O2 Saturation 85.5 L ABG Base Excess 10.7 H ABG Hemoglobin 6.4 L ABG Oxyhemoglobin ABG Sodium ABG Potassium ABG Chloride ABG Glucose Oxyhemoglobin 82.8 L Carboxyhemoglobin Sodium Potassium Chloride Carbon Dioxide BUN Creatinine Glucose POC Glucose 143 H Hemoglobin A1c Lactic Acid Calcium Magnesium Ferritin Total Bilirubin AST ALT Alkaline Phosphatase Lactate Dehydrogenase Total Creatine Kinase C-Reactive Protein Total Protein Albumin Triglycerides Arterial Blood Glucose Arterial Blood Ionized Calcium Ur Specific [place] Urine WBC (Auto) Vancomycin Trough Coronavirus (PCR) Crossmatch 01/01/21 01/01/21 01/01/21 11:29 17:00 17:33 WBC 16.1 H RBC 2.68 L Hgb 7.8 L Hct 24.5 L MCH MCHC RDW 18.9 H Plt Count Lymph % (Auto) [place] % (Auto) Lymph # (Auto) [place] # (Auto) Baso # (Auto) Seg Neutrophils % Seg Neuts % (Manual) Lymphocytes % (Manual) 9.0 L Nucleated RBC % 2.0 H Seg Neutrophils # Seg Neutrophils # Man Lymphocytes # (Manual) D-Dimer ABG pH POC ABG pCO2 POC ABG pO2 ABG pO2 ABG HCO3 ABG O2 Saturation ABG Base Excess ABG Hemoglobin ABG Oxyhemoglobin ABG Sodium ABG Potassium ABG Chloride ABG Glucose Oxyhemoglobin Carboxyhemoglobin Sodium Potassium Chloride Carbon Dioxide BUN Creatinine Glucose POC Glucose 153 H 120 H Hemoglobin A1c Lactic Acid Calcium Magnesium Ferritin Total Bilirubin AST ALT Alkaline Phosphatase Lactate Dehydrogenase Total Creatine Kinase C-Reactive Protein Total Protein Albumin Triglycerides Arterial Blood Glucose Arterial Blood Ionized Calcium Ur Specific [place] Urine WBC (Auto) Vancomycin Trough Coronavirus (PCR) Crossmatch 01/01/21 01/02/21 01/02/21 23:23 04:45 05:28 WBC RBC Hgb Hct MCH MCHC RDW Plt Count Lymph % (Auto) [place] % (Auto) Lymph # (Auto) [place] # (Auto) Baso # (Auto) Seg Neutrophils % Seg Neuts % (Manual) Lymphocytes % (Manual) Nucleated RBC % Seg Neutrophils # Seg Neutrophils # Man Lymphocytes # (Manual) D-Dimer ABG pH 7.219 L POC ABG pCO2 102.6 H POC ABG pO2 49.7 L ABG pO2 ABG HCO3 ABG O2 Saturation ABG Base Excess ABG Hemoglobin 8.4 L ABG Oxyhemoglobin 79.4 L ABG Sodium ABG Potassium ABG Chloride ABG Glucose 146 H Oxyhemoglobin Carboxyhemoglobin 2.3 H Sodium Potassium Chloride Carbon Dioxide BUN Creatinine Glucose POC Glucose 144 H 133 H Hemoglobin A1c Lactic Acid Calcium Magnesium Ferritin Total Bilirubin AST ALT Alkaline Phosphatase Lactate Dehydrogenase Total Creatine Kinase C-Reactive Protein Total Protein Albumin Triglycerides Arterial Blood Glucose 146 H Arterial Blood Ionized Calcium 4.4 L Ur Specific [place] Urine WBC (Auto) Vancomycin Trough Coronavirus (PCR) Crossmatch 01/02/21 01/02/21 01/02/21 11:50 17:53 23:26 WBC RBC Hgb Hct MCH MCHC RDW Plt Count Lymph % (Auto) [place] % (Auto) Lymph # (Auto) [place] # (Auto) Baso # (Auto) Seg Neutrophils % Seg Neuts % (Manual) Lymphocytes % (Manual) Nucleated RBC % Seg Neutrophils # Seg Neutrophils # Man Lymphocytes # (Manual) D-Dimer ABG pH POC ABG pCO2 POC ABG pO2 ABG pO2 ABG HCO3 ABG O2 Saturation ABG Base Excess ABG Hemoglobin ABG Oxyhemoglobin ABG Sodium ABG Potassium ABG Chloride ABG Glucose Oxyhemoglobin Carboxyhemoglobin Sodium Potassium Chloride Carbon Dioxide BUN Creatinine Glucose POC Glucose 139 H 149 H 155 H Hemoglobin A1c Lactic Acid Calcium Magnesium Ferritin Total Bilirubin AST ALT Alkaline Phosphatase Lactate Dehydrogenase Total Creatine Kinase C-Reactive Protein Total Protein Albumin Triglycerides Arterial Blood Glucose Arterial Blood Ionized Calcium Ur Specific [place] Urine WBC (Auto) Vancomycin Trough Coronavirus (PCR) Crossmatch 01/02/21 01/03/21 01/03/21 Unknown 03:51 05:23 WBC RBC Hgb Hct MCH MCHC RDW Plt Count Lymph % (Auto) [place] % (Auto) Lymph # (Auto) [place] # (Auto) Baso # (Auto) Seg Neutrophils % Seg Neuts % (Manual) Lymphocytes % (Manual) Nucleated RBC % Seg Neutrophils # Seg Neutrophils # Man Lymphocytes # (Manual) D-Dimer ABG pH POC ABG pCO2 73.4 H POC ABG pO2 44.7 L ABG pO2 ABG HCO3 ABG O2 Saturation ABG Base Excess ABG Hemoglobin 7.8 L ABG Oxyhemoglobin ABG Sodium ABG Potassium ABG Chloride ABG Glucose 177 H Oxyhemoglobin Carboxyhemoglobin Sodium Potassium Chloride Carbon Dioxide BUN Creatinine Glucose POC Glucose 156 H Hemoglobin A1c Lactic Acid Calcium Magnesium Ferritin Total Bilirubin AST ALT Alkaline Phosphatase Lactate Dehydrogenase Total Creatine Kinase C-Reactive Protein Total Protein Albumin Triglycerides 718 H Arterial Blood Glucose 177 H Arterial Blood Ionized Calcium 4.3 L Ur Specific [place] Urine WBC (Auto) Vancomycin Trough Coronavirus (PCR) Crossmatch 01/03/21 01/03/21 01/03/21 06:00 11:41 17:17 WBC 12.5 H RBC 2.34 L Hgb 6.9 L Hct 21.9 L MCH MCHC RDW 19.3 H Plt Count Lymph % (Auto) [place] % (Auto) Lymph # (Auto) [place] # (Auto) Baso # (Auto) Seg Neutrophils % Seg Neuts % (Manual) 82.0 H Lymphocytes % (Manual) 6.0 L Nucleated RBC % 10.0 H Seg Neutrophils # Seg Neutrophils # Man 10.3 H Lymphocytes # (Manual) 0.8 L D-Dimer ABG pH POC ABG pCO2 POC ABG pO2 ABG pO2 ABG HCO3 ABG O2 Saturation ABG Base Excess ABG Hemoglobin ABG Oxyhemoglobin ABG Sodium ABG Potassium ABG Chloride ABG Glucose Oxyhemoglobin Carboxyhemoglobin Sodium Potassium Chloride Carbon Dioxide BUN Creatinine Glucose POC Glucose 124 H 140 H Hemoglobin A1c Lactic Acid Calcium Magnesium Ferritin Total Bilirubin AST ALT Alkaline Phosphatase Lactate Dehydrogenase Total Creatine Kinase C-Reactive Protein Total Protein Albumin Triglycerides Arterial Blood Glucose Arterial Blood Ionized Calcium Ur Specific [place] Urine WBC (Auto) Vancomycin Trough Coronavirus (PCR) Crossmatch 01/03/21 01/03/21 01/04/21 23:47 Unknown 04:49 WBC RBC Hgb Hct MCH MCHC RDW Plt Count Lymph % (Auto) [place] % (Auto) Lymph # (Auto) [place] # (Auto) Baso # (Auto) Seg Neutrophils % Seg Neuts % (Manual) Lymphocytes % (Manual) Nucleated RBC % Seg Neutrophils # Seg Neutrophils # Man Lymphocytes # (Manual) D-Dimer ABG pH 7.245 L POC ABG pCO2 98.0 H POC ABG pO2 47.5 L ABG pO2 ABG HCO3 ABG O2 Saturation ABG Base Excess ABG Hemoglobin 9.9 L ABG Oxyhemoglobin ABG Sodium ABG Potassium ABG Chloride ABG Glucose 171 H Oxyhemoglobin Carboxyhemoglobin Sodium Potassium Chloride Carbon Dioxide 37 H BUN 24 H Creatinine 0.4 L Glucose 156 H POC Glucose 158 H Hemoglobin A1c Lactic Acid Calcium 6.8 L Magnesium Ferritin Total Bilirubin AST ALT Alkaline Phosphatase Lactate Dehydrogenase Total Creatine Kinase C-Reactive Protein Total Protein Albumin Triglycerides Arterial Blood Glucose 171 H Arterial Blood Ionized Calcium 4.5 L Ur Specific [place] Urine WBC (Auto) Vancomycin Trough Coronavirus (PCR) Crossmatch 01/04/21 01/04/21 01/04/21 05:14 06:45 06:45 WBC 13.0 H RBC 2.34 L Hgb 6.9 L Hct 21.8 L MCH MCHC RDW 19.7 H Plt Count Lymph % (Auto) [place] % (Auto) Lymph # (Auto) [place] # (Auto) Baso # (Auto) Seg Neutrophils % Seg Neuts % (Manual) 79.0 H Lymphocytes % (Manual) Nucleated RBC % Seg Neutrophils # Seg Neutrophils # Man 10.3 H Lymphocytes # (Manual) D-Dimer ABG pH POC ABG pCO2 POC ABG pO2 ABG pO2 ABG HCO3 ABG O2 Saturation ABG Base Excess ABG Hemoglobin ABG Oxyhemoglobin ABG Sodium ABG Potassium ABG Chloride ABG Glucose Oxyhemoglobin Carboxyhemoglobin Sodium Potassium Chloride Carbon Dioxide 39 H BUN 26 H Creatinine 0.4 L Glucose 164 H POC Glucose 144 H Hemoglobin A1c Lactic Acid Calcium 7.2 L Magnesium Ferritin Total Bilirubin AST ALT Alkaline Phosphatase Lactate Dehydrogenase Total Creatine Kinase C-Reactive Protein Total Protein Albumin Triglycerides Arterial Blood Glucose Arterial Blood Ionized Calcium Ur Specific [place] Urine WBC (Auto) Vancomycin Trough Coronavirus (PCR) Crossmatch 01/04/21 01/04/21 01/04/21 11:58 17:31 23:14 WBC RBC Hgb Hct MCH MCHC RDW Plt Count Lymph % (Auto) [place] % (Auto) Lymph # (Auto) [place] # (Auto) Baso # (Auto) Seg Neutrophils % Seg Neuts % (Manual) Lymphocytes % (Manual) Nucleated RBC % Seg Neutrophils # Seg Neutrophils # Man Lymphocytes # (Manual) D-Dimer ABG pH POC ABG pCO2 POC ABG pO2 ABG pO2 ABG HCO3 ABG O2 Saturation ABG Base Excess ABG Hemoglobin ABG Oxyhemoglobin ABG Sodium ABG Potassium ABG Chloride ABG Glucose Oxyhemoglobin Carboxyhemoglobin Sodium Potassium Chloride Carbon Dioxide BUN Creatinine Glucose POC Glucose 141 H 139 H 140 H Hemoglobin A1c Lactic Acid Calcium Magnesium Ferritin Total Bilirubin AST ALT Alkaline Phosphatase Lactate Dehydrogenase Total Creatine Kinase C-Reactive Protein Total Protein Albumin Triglycerides Arterial Blood Glucose Arterial Blood Ionized Calcium Ur Specific [place] Urine WBC (Auto) Vancomycin Trough Coronavirus (PCR) Crossmatch 01/05/21 01/05/21 01/05/21 05:21 06:00 10:10 WBC RBC Hgb Hct MCH MCHC RDW Plt Count Lymph % (Auto) [place] % (Auto) Lymph # (Auto) [place] # (Auto) Baso # (Auto) Seg Neutrophils % Seg Neuts % (Manual) Lymphocytes % (Manual) Nucleated RBC % Seg Neutrophils # Seg Neutrophils # Man Lymphocytes # (Manual) D-Dimer ABG pH POC ABG pCO2 POC ABG pO2 ABG pO2 ABG HCO3 ABG O2 Saturation ABG Base Excess ABG Hemoglobin ABG Oxyhemoglobin ABG Sodium ABG Potassium ABG Chloride ABG Glucose Oxyhemoglobin Carboxyhemoglobin Sodium Potassium Chloride Carbon Dioxide BUN Creatinine Glucose POC Glucose 152 H Hemoglobin A1c Lactic Acid Calcium Magnesium Ferritin Total Bilirubin AST ALT Alkaline Phosphatase Lactate Dehydrogenase Total Creatine Kinase C-Reactive Protein Total Protein Albumin Triglycerides 240 H Arterial Blood Glucose Arterial Blood Ionized Calcium Ur Specific [place] Urine WBC (Auto) Vancomycin Trough Coronavirus (PCR) Positive A Crossmatch 01/05/21 01/05/21 01/05/21 11:26 16:20 16:25 WBC 15.4 H RBC 2.53 L Hgb 6.9 L Hct 23.6 L MCH 27 L MCHC 29 L RDW 19.3 H Plt Count Lymph % (Auto) [place] % (Auto) Lymph # (Auto) [place] # (Auto) Baso # (Auto) Seg Neutrophils % Seg Neuts % (Manual) Lymphocytes % (Manual) Nucleated RBC % Seg Neutrophils # Seg Neutrophils # Man Lymphocytes # (Manual) D-Dimer ABG pH POC ABG pCO2 POC ABG pO2 ABG pO2 ABG HCO3 ABG O2 Saturation ABG Base Excess ABG Hemoglobin ABG Oxyhemoglobin ABG Sodium ABG Potassium ABG Chloride ABG Glucose Oxyhemoglobin Carboxyhemoglobin Sodium Potassium Chloride Carbon Dioxide BUN Creatinine Glucose POC Glucose 151 H Hemoglobin A1c Lactic Acid Calcium Magnesium Ferritin Total Bilirubin AST ALT Alkaline Phosphatase Lactate Dehydrogenase Total Creatine Kinase C-Reactive Protein Total Protein Albumin Triglycerides Arterial Blood Glucose Arterial Blood Ionized Calcium Ur Specific [place] Urine WBC (Auto) Vancomycin Trough Coronavirus (PCR) Crossmatch See Detail 01/05/21 01/05/21 01/05/21 17:44 23:28 Unknown WBC RBC Hgb Hct MCH MCHC RDW Plt Count Lymph % (Auto) [place] % (Auto) Lymph # (Auto) [place] # (Auto) Baso # (Auto) Seg Neutrophils % Seg Neuts % (Manual) Lymphocytes % (Manual) Nucleated RBC % Seg Neutrophils # Seg Neutrophils # Man Lymphocytes # (Manual) D-Dimer ABG pH 7.258 L POC ABG pCO2 POC ABG pO2 ABG pO2 43.9 L ABG HCO3 41.0 H ABG O2 Saturation 73.2 L ABG Base Excess 11.8 H ABG Hemoglobin 8.6 L ABG Oxyhemoglobin ABG Sodium ABG Potassium ABG Chloride ABG Glucose Oxyhemoglobin 70.4 L Carboxyhemoglobin Sodium Potassium Chloride Carbon Dioxide BUN Creatinine Glucose POC Glucose 153 H 143 H Hemoglobin A1c Lactic Acid Calcium Magnesium Ferritin Total Bilirubin AST ALT Alkaline Phosphatase Lactate Dehydrogenase Total Creatine Kinase C-Reactive Protein Total Protein Albumin Triglycerides Arterial Blood Glucose Arterial Blood Ionized Calcium Ur Specific [place] Urine WBC (Auto) Vancomycin Trough Coronavirus (PCR) Crossmatch 01/06/21 01/06/21 01/06/21 03:48 05:22 06:15 WBC 14.4 H RBC 3.44 L Hgb 9.6 L Hct 31.1 L D MCH MCHC 31 L RDW 18.4 H Plt Count Lymph % (Auto) [place] % (Auto) Lymph # (Auto) [place] # (Auto) Baso # (Auto) Seg Neutrophils % Seg Neuts % (Manual) Lymphocytes % (Manual) Nucleated RBC % Seg Neutrophils # Seg Neutrophils # Man Lymphocytes # (Manual) D-Dimer ABG pH 7.271 L POC ABG pCO2 87.1 H POC ABG pO2 45.0 L ABG pO2 ABG HCO3 ABG O2 Saturation ABG Base Excess ABG Hemoglobin 10.3 L ABG Oxyhemoglobin 77.5 L ABG Sodium 145.3 H ABG Potassium ABG Chloride ABG Glucose 170 H Oxyhemoglobin Carboxyhemoglobin 2.0 H Sodium Potassium Chloride Carbon Dioxide BUN Creatinine Glucose POC Glucose 154 H Hemoglobin A1c Lactic Acid Calcium Magnesium Ferritin Total Bilirubin AST ALT Alkaline Phosphatase Lactate Dehydrogenase Total Creatine Kinase C-Reactive Protein Total Protein Albumin Triglycerides Arterial Blood Glucose 170 H Arterial Blood Ionized Calcium 4.4 L Ur Specific [place] Urine WBC (Auto) Vancomycin Trough Coronavirus (PCR) Crossmatch 01/06/21 06:15 WBC RBC Hgb Hct MCH MCHC RDW Plt Count Lymph % (Auto) [place] % (Auto) Lymph # (Auto) [place] # (Auto) Baso # (Auto) Seg Neutrophils % Seg Neuts % (Manual) Lymphocytes % (Manual) Nucleated RBC % Seg Neutrophils # Seg Neutrophils # Man Lymphocytes # (Manual) D-Dimer ABG pH POC ABG pCO2 POC ABG pO2 ABG pO2 ABG HCO3 ABG O2 Saturation ABG Base Excess ABG Hemoglobin ABG Oxyhemoglobin ABG Sodium ABG Potassium ABG Chloride ABG Glucose Oxyhemoglobin Carboxyhemoglobin Sodium Potassium Chloride Carbon Dioxide 39 H BUN 28 H Creatinine 0.5 L Glucose 173 H POC Glucose Hemoglobin A1c Lactic Acid Calcium 6.9 L Magnesium Ferritin Total Bilirubin AST ALT Alkaline Phosphatase Lactate Dehydrogenase Total Creatine Kinase C-Reactive Protein Total Protein Albumin Triglycerides Arterial Blood Glucose Arterial Blood Ionized Calcium Ur Specific [place] Urine WBC (Auto) Vancomycin Trough Coronavirus (PCR) Crossmatch
--- NOTE | 2021-01-06 12:59 | Progress Note ---
Assessment and Plan Assessment and plan: -S/p antibiotic therapy -Remains on vasopressor support -RASS goal -4 per CCM -Chest tube management as per surgery/CCM -Maintained on mechanical ventilation, wean as tolerated -Continue to monitor glucose levels and urine output -Continue supportive care -ID and critical care following -Prognosis is very poor -We anticipate a visit from his brother on 01/07 with withdrawal of care. DVT/GI prophylaxis: SCDs to bilateral lower extremities while in bed, Lovenox subcu, PPI Disposition: ICU The high probability of a clinically significant, sudden or life threatening deterioration of the [multi] system(s) required my full and direct attention, intervention and personal management. The aggregate critical care time was [35] minutes. This time is in addition to time spent performing reported procedures but includes the following: [x] Data Review and interpretation [x] Patient assessment and monitoring of vital signs [x] Documentation [x] Medication orders and management History Interval history: 59-year-old female who is smoker who presented to [facility] with shortness of breath cough fever weakness for 1 to 2 days prior to arrival. Per EMS the patient was severely hypoxic with saturations in the low 80s. With all oxygen and nonrebreather came down to low 90s. ID, pulmonary, CCM were consulted. Septic Shock Coag Negative staph/Entrococcus bactermia MRSA/Klebsiella in sputum COVID-19 pneumonia Acute hypoxic hypercapnic respiratory failure Bilateral pneumothorax Pneumomediastinum with subcutaneous emphysema Elevated D-dimer Transaminitis secondary to Covid 19 Klebsiella pneumonia Type 2 diabetes mellitus Severe protien calorie malnutrition secondary to critical illness Metabolic alkalosis Hypercapnia 2/1: Patient continues on BiPAP throughout the night. Labs are remarkable for hypoxia with improving renal function but lactic acidosis without fever. CTA has been ordered to rule out pulmonary embolism. I agree with increasing enoxaparin to twice daily full dose for empiric treatment of pulmonary embolism. Will obtain ID consultation on further evaluation for possible underlying pneumonia versus COVID-19. We will also obtain echocardiogram for evaluation. Will discontinue fluids at this time. 2/2; Continue supportive care, Patient remains with very guarded prognosis, remains on BiPAP, continues on Remdesivir, and steroids. Will continue anticoagulation, unable to get CTA Chest due to patients unstable clinical status. Will adjust insulin for better blood glucose 2/3: Continues on BIPAP, no clear improvement at this time. Will continue steroids therapy Remdesivir and also Full anticoagulation at this time. Will update family. Discussed with [employer] Solutions Architect. 11/19: Taking a break from the BiPAP on high flow and nonrebreather 100% with saturation of 90% becomes hypoxic with any movement. [employer] Architect input noted will get a dose of Lasix today. Will await a discussion with ID for possibly increasing steroid. I updated Patient's Cousin, Tayla Esquivel who is the emergency florist supplies salesperson. Blood sugar remains fluctuating secondary to steriods, Encouraged Prone positioning. Noted with mild hyponatremia we will continue to monitor and manage 11/20: Continue supportive care wean oxygen as tolerated prognosis remains guarded. Encouraged to progress as tolerated. Awaiting labs today. Discussed with nursing staff and patient at bedside. 11/21: Discontinued Dexamethasone as Solumedrol started secondary to increased oxygen demand. Will give additional insulin for better control. Continue oxygen support patient still on high flow. Prognosis still guarded 11/22: Patient was intubated and placed on mechanical ventilation. Continue current medication. Will check a.m. labs today. Noted still with hypotension. Doubt septic shock at this time as patient has no new fever. Will adjust insulin for better blood sugar control. 11/23: Patient admitted with COVID-19 despite all efforts patient remains severely hypoxic and now is intubated. Oracle Solutions Architect input noted. Blood pressure marginal at this time. Very poor prognosis. Continue Solu-Medrol. 11/24. Patient remains very hypoxic. Blood pressure borderline. Plan for initiation of paralytic agents as per manager user experience. Patient may need to be trans ferred if no improvement. 11/26. Off paralytics. Remains intubated. On steroids. Prognosis is poor. 11/27. Chest xray shows pneumomediastinum and subcutaneous emphysema. Surgery consulted. Plan for chest tube placement. Sputum culture grew MRSA. Patient started on vancomycin per ID. 11/28. Right chest tube placed yesterday by surgery. Repeat chest x-ray showed left small pneumothorax. Plan for chest tube placement on the left today. Remains on paralytic agents. 11/29. Remains intubated on vent. Had left chest tube placed yesterday. Vitals reviewed. Critical care following 11/30/ Remains on mechanical ventilation. Worsening hypoxia. Bilateral chest tubes in place. Vitals reviewed. Labs reviewed 12/01: Chest tube and mechanical ventilation remains in place, poor prognosis, FIO2 remains at 90%, adjust insulin for better blood glucose control 12/02: Patient remains on full ventilatory support and steroids, still with worsening leukocytosis ?inflammatory or infectious vs steroids. Continue vancomycin. 12/03; slowly weaning, 12/04: Still on the vent FiO2 down to 65% PEEP remains at 18. Still with poor prognosis. 12/05: Patient continues on full ventilatory support per manager user experience PEEP remains at 18. Still with hypercapnic respiratory failure. FiO2 down to 60% this morning. Chest tube to suction still weaning off steroids in the deliberation ongoing for possible a third chest tube as last documentation by surgery shows no plan for it at this time. Continue to manage insulin for better blood sugar control. 12/06:weaned down to 60%, continue supportive care, unable to wean, 12/07; patient remains intubated on ventilatory support, chest tubes in place trach and PEG when patient's Covid test is negative,Per surgery. 12/08; Patient remains intubated remains with hypercapnia and hypoxia. Chest tube still remain in place. He is off antibiotics at this time. Continue steroids which is likely resultant to the leukocytosis. Oracle Solutions Architect and surgeon following ID input is noted. Prognosis remains guarded to poor 12/10; patient remains intubated on vent, unable to wean awaiting trach and PEG when Covid test is negative, Continue current management 12/11; patient awaiting trach and PEG when Covid test is negative, vent dependent, poor prognosis 12/12; clinically no change, vent dependent, Patient is critically ill with very poor prognosis, awaiting trach and PEG when COVID-19 test turns negative. Plan discussed with nursing staff. Caregivers have discussed with patient's family periodically 12/13: Patient is critically ill with very poor prognosis, awaiting trach and PEG when COVID-19 test turns negative. Plan discussed with nursing staff. Car egivers have discussed with patient's family periodically 12/14: Increase UOP which we will monitor and replete as needed. Patient remain hypoxemic on ABG despite 100 FiO2, remains on fentanyl, precedex, versed and levo gtt. 12/15: Patient remains sedated on fentanyl at 3 mcg, Versed at 30 mg, dexam ethasone 0.3 and was on Levophed 6 mcg this morning. Patient's vent settings rate of 30, tidal volume 425, PEEP of 18, FiO2 of 85. RT attempted to wean as tolerated. No acute events reported overnight. Bilateral chest tubes to wall suction. 12/16: Overnight the patient was noted to be bradycardic, Precedex drip was increased to 0.6/fentanyl to 4 mcg/Versed 5 mg, bilateral chest tube to suction. Current vent settings for 425/30/18/0.75, RT to wean as tolerated 12/17: Patient's T-max overnight was 101.2, obtain CXR today, blood culture x2 per ID. Patient remains on fentanyl, Versed, Precedex and Levophed. Current vent settings AC 425/30/18/0.75, RT to wean as tolerated. Continue steroid taper. 12/18: Patient remains sedated on fentanyl, Versed, Precedex and has vasopressor support of Levophed, current vent settings 425/30/18/0.75 with bilateral chest tubes to wall suction. Patient's blood culture from 12/17 grew gram-positive cocci in pairs and chains however the patient is on vancomycin and cefepime. We will continue to follow for speciation and sensitivity. 12/19: Unfortunately remains on full ventilatory support prognosis remains very poor. No new fever however since 12/17. Continue to follow cultures not finalized yet. Antibiotics per ID critical care management input noted. Patient remains on high FiO2 and PEEP at this time. 12/20: Still with intermittent fever, likely secondary to covid 19, still with hyponatremia, continue with tube feed. cultures with coagulas negative staph, await further ID input. Continues on abx. 12/21: Patient remains on fentanyl, Precedex, Versed and Levophed and assist control for 25/30/18/.100 with bilateral chest tubes in place. Patient remains on antibiotic therapy. No acute events reported overnight. 12/22: Patient remains sedated on Precedex and fentanyl and on vasopressor support, blood cultures grew coag negative Staphylococcus and Enterococcus and antibiotic therapy was deescalated to ampicillin by infectious disease. This morning patient was on assist control for 25/30/18/0.100 and respiratory therapy to decrease FiO2 as tolerated. 12/23: Patient remains sedated on Versed, fentanyl, propofol, dexamethasone and vasopressor support with Levophed. Patient is on ampicillin with a T-max of 99 and current vent settings assist-control 425/30/18/0.90 which is being weaned as tolerated by RT. Patient bowel regimen escalated. 12/24: Patient was febrile overnight to 102, remains sedated on Versed, fentanyl, propofol and Precedex and on respiratory support with Levophed. This morning at the time my examination patient was on assist control 425/30/18/0.100. Patient's bowel regimen was escalated. This afternoon patient SPO2 dropped into the upper 60s and low 70s, patient was removed off the ventilator and bagged by RT with improvement in his SPO2 to mid 70s and his ventilator settings were adjusted with an increase in PEEP to 22 and reduction in tidal volume. Patient remained with SPO2 in the 70s to 80s then suddenly dropped his SPO2 again. A CXR was obtained and patient received 40 mg of IV Lasix. CXR showed pneumothorax and general surgery was consulted for chest tube placement. Patient's existing right chest tube was replaced after removal. During chest tube was placed on the right side and a repeat CXR is being performed. Dr. German and Dr. Henry were kept up to date throughout the process and Dr. Henry was at beside during this time. I attempted to call Kehinde but was unable to contact him but left a voicemail. Jd was called and informed of changes with translation provided by Tayla. I spoke to them on the phone for over 30 minutes and explained the situation. They did not wish to change his CODE STATUS. Per CCM the patient respikes his temperature over the next 24 hours we will reculture his urine and blood. Patient remains on antibiotic therapy for 14 days per infectious disease 01/04/2021. Repeat blood cultures are negative. 12/25: Patient developed subcu emphysema on right chest and a repeat CXR shows minimal pneumothorax on the right chest wall which has not increased in size. At the time of my examination patient was on assist control 400/30/18/0.100 and the subcutaneous emphysema was noted after the patient's PEEP was increased. Patient remains sedated on Versed, fentanyl, Precedex and propofol with vasopressor support of Levophed. Patient's family decided to make the patient an AND and his CODE STATUS was updated. We will continue supportive care. Infectious disease has escalated antibiotic therapy to Zosyn. 12/26. Remains mechanically ventilated. On AC 30/400/100% PEEP 22. Not responsive. Sedated. On pressors. Labs reviewed. On antibiotics. 12/27. No change in medical condition. Remains on AC 30/40/1 100% PEEP of 22. Sedated and on pressors. On antibiotics-Zosyn. ID and critical care on board. General surgery also following for management of chest tubes. Prognosis is very poor 12/28: Patient remains sedated on Versed, fentanyl, propofol and Precedex and has vasopressor support with Levophed quad strength at 22. Patient subcu air seems to be bilateral in his upper chest. At the time my examination patient is on 400/30/22/.95 and RT will wean his vent 0.90. Patient still has leukocytosis, metabolic alkalosis, hypokalemia. 12/29: Patient remains sedated on Versed, fentanyl, Precedex and propofol with vasopressor support with Levophed. Patient remains on assist control 400/30/22/0.90 and still [place] ptosis. Patient hypokalemia has resolved 12/30: Remains sedated on propofol, Versed, fentanyl, Precedex and on Levophed. Current vent settings assist-control 400/30/22/0.80 and improving leukocytosis and metabolic alkalosis. He will complete Zosyn today. No acute events reported overnight. Patient's urine output has decreased over the past couple days and we will continue to monitor. 12/31: Patient remains intubated on mechanical ventilation. Continue RASS goal - 4 per CCM. Continue Zosyn per ID recommendations with completion of antibiotics tomorrow. Patient with extremely poor prognosis and agree with DNR status. 01/01: Patient currently on AC/PRVC mode rate 30, tidal volume 400, FiO2 100% and PEEP of 22. Patient currently with sedation of propofol, fentanyl and Versed. Patient requiring pressors of Levophed. Currently chest tubes to suction and repeat chest x-ray on Monday. Wean FiO2 as tolerated. Guarded prognosis. 01/02: Patient currently on AC/PRVC mode rate 30, tidal volume 400, FiO2 80% and PEEP of 22. Patient currently with sedation of propofol, fentanyl and Versed. Patient requiring pressors of Levophed. Currently chest tubes to suction and repeat chest x-ray on Monday. Wean FiO2 as tolerated. Guarded prognosis. 01/03: Pulmonary reports inability to wean FiO2. Patient currently on AC/PRVC mode rate 30, tidal volume 400, FiO2 80% and PEEP of 22. Currently chest tubes to suction and repeat chest x-ray on Monday. Continue pressors to maintain MAP > 65. Poor prognosis. 01/04: Patient remains sedated on fentanyl, Versed, propofol, Precedex and with minimal support with Levophed with bilateral chest tubes in place current vent settings for /0.100. Per [facility] patient family will be approached for comfort measures if no improvement by Monday. No acute events reported overnight. 01/05: Patient was febrile overnight, remains on Precedex, fentanyl, propofol, Levophed and Versed. Patient remains on full ventilatory support. Goals of care discussion with family. [facility] on Monday. Repeat COVID-19 PCR positive 01/06: Yesterday patient had a pool of blood between his legs and he received 2 unit PRBC. Stat H/H showed 6.9. This morning his H/H 9.6/31. His ABG 100% FiO2 seven-point //30 9.2 and he remains sedated on fentanyl, Versedpropofol and Precedex. Patient remains on vasopressor support with Levophed. He is on assist control /0.100. Dr. German spoke to his family and the patient's brother will visit tomorrow for withdrawal of care. Hospitalist Physical - Constitutional Vitals: Temp Pulse Resp BP Pulse Ox 99.5 F 119 H 30 H 120/68 84 01/06/21 12:00 01/06/21 09:55 01/06/21 08:00 01/06/21 09:55 01/06/21 09:55 General appearance: Present: no acute distress, other (comatose) - EENT ENT: poor dentition - Neck Neck: Absent: masses or JVD - Respiratory Respiratory effort: normal Respiratory: bilateral: diminished - Cardiovascular Rhythm: regular Heart Sounds: Present: S1 & S2. Absent: systolic murmur, diastolic murmur - Extremities Extremities: no ischemia, pulses intact, pulses symmetrical, No edema, normal temperature, normal color Peripheral Pulses: within normal limits - Abdominal General gastrointestinal: soft, non-tender, non-distended, normal bowel sounds - Integumentary Integumentary: Present: warm, dry - Psychiatric Psychiatric: other (sedated) - Neurologic Neurologic: other (sedated) HEART Score - HEART Score Troponin: Troponin T < 0.010 ng/mL (0.00-0.029) 12/11/20 06:30 Results - Labs CBC & Chem 7: 01/06/21 06:15 01/06/21 06:15 Labs: Laboratory Last Values WBC 14.4 K/mm3 (4.5-11.0) H 01/06/21 06:15 RBC 3.44 M/mm3 (3.65-5.03) L 01/06/21 06:15 Hgb 9.6 gm/dl (11.8-15.2) L 01/06/21 06:15 Hct 31.1 % (35.5-45.6) L D 01/06/21 06:15 MCV 91 fl (84-94) 01/06/21 06:15 MCH 28 pg (28-32) 01/06/21 06:15 MCHC 31 % (32-34) L 01/06/21 06:15 RDW 18.4 % (13.2-15.2) H 01/06/21 06:15 Plt Count 373 K/mm3 (140-440) 01/06/21 06:15 Lymph % (Auto) 9.2 % (13.4-35.0) L 12/30/20 04:00 Bryan % (Auto) 2.9 % (0.0-7.3) 12/30/20 04:00 Eos % (Auto) 0.6 % (0.0-4.3) 12/30/20 04:00 Baso % (Auto) 0.3 % (0.0-1.8) 12/30/20 04:00 Lymph # (Auto) 1.4 K/mm3 (1.2-5.4) 12/30/20 04:00 Bryan # (Auto) 0.4 K/mm3 (0.0-0.8) 12/30/20 04:00 Eos # (Auto) 0.1 K/mm3 (0.0-0.4) 12/30/20 04:00 Baso # (Auto) 0.0 K/mm3 (0.0-0.1) 12/30/20 04:00 Add Manual Diff Complete 01/04/21 06:45 Total Counted 100 01/04/21 06:45 Seg Neutrophils % 87.0 % (40.0-70.0) H 12/30/20 04:00 Seg Neuts % (Manual) 79.0 % (40.0-70.0) H 01/04/21 06:45 Band Neutrophils % 5.0 % 01/03/21 06:00 Lymphocytes % (Manual) 15.0 % (13.4-35.0) 01/04/21 06:45 Monocytes % (Manual) 6.0 % (0.0-7.3) 01/04/21 06:45 Eosinophils % (Manual) 1.0 % (0.0-4.3) 01/03/21 06:00 Metamyelocytes % 1.0 % 01/03/21 06:00 Myelocytes % 1.0 % 12/31/20 Unknown Nucleated RBC % Not Reportable 01/04/21 06:45 Seg Neutrophils # 13.1 K/mm3 (1.8-7.7) H 12/30/20 04:00 Seg Neutrophils # Man 10.3 K/mm3 (1.8-7.7) H 01/04/21 06:45 Band Neutrophils # 0.0 K/mm3 01/04/21 06:45 Lymphocytes # (Manual) 2.0 K/mm3 (1.2-5.4) 01/04/21 06:45 Abs React Lymphs (Man) 0.0 K/mm3 01/04/21 06:45 Monocytes # (Manual) 0.8 K/mm3 (0.0-0.8) 01/04/21 06:45 Eosinophils # (Manual) 0.0 K/mm3 (0.0-0.4) 01/04/21 06:45 Basophils # (Manual) 0.0 K/mm3 (0.0-0.1) 01/04/21 06:45 Metamyelocytes # 0.0 K/mm3 01/04/21 06:45 Myelocytes # 0.0 K/mm3 01/04/21 06:45 Promyelocytes # 0.0 K/mm3 01/04/21 06:45 Blast Cells # 0.0 K/mm3 01/04/21 06:45 WBC Morphology Not Reportable 01/04/21 06:45 Hypersegmented Neuts Not Reportable 01/04/21 06:45 Hyposegmented Neuts Not Reportable 01/04/21 06:45 Hypogranular Neuts Not Reportable 01/04/21 06:45 Smudge Cells Not Reportable 01/04/21 06:45 Toxic Granulation Not Reportable 01/04/21 06:45 Toxic Vacuolation Not Reportable 01/04/21 06:45 Dohle Bodies Not Reportable 01/04/21 06:45 Pelger-Huet Anomaly Not Reportable 01/04/21 06:45 Tony Rods Not Reportable 01/04/21 06:45 Platelet Estimate Not Reportable 01/04/21 06:45 Clumped Platelets Not Reportable 01/04/21 06:45 Plt Clumps, EDTA Not Reportable 01/04/21 06:45 Large Platelets Not Reportable 01/04/21 06:45 Giant Platelets Not Reportable 01/04/21 06:45 Platelet Satelliting Not Reportable 01/04/21 06:45 Plt Morphology Comment Not Reportable 01/04/21 06:45 RBC Morphology Not Reportable 01/04/21 06:45 Dimorphic RBCs Not Reportable 01/04/21 06:45 Polychromasia 1+ 01/04/21 06:45 Hypochromasia Not Reportable 01/04/21 06:45 Poikilocytosis Not Reportable 01/04/21 06:45 Anisocytosis 1+ 01/04/21 06:45 Microcytosis Few 01/04/21 06:45 Macrocytosis Not Reportable 01/04/21 06:45 Spherocytes Not Reportable 01/04/21 06:45 Pappenheimer Bodies Not Reportable 01/04/21 06:45 Sickle Cells Not Reportable 01/04/21 06:45 Target Cells Not Reportable 01/04/21 06:45 Tear Drop Cells Not Reportable 01/04/21 06:45 Ovalocytes Not Reportable 01/04/21 06:45 Stomatocytes Rare 12/27/20 14:09 Helmet Cells Not Reportable 01/04/21 06:45 Cabrera-Long Bodies Not Reportable 01/04/21 06:45 Hamer Rings Not Reportable 01/04/21 06:45 Henrry Cells Not Reportable 01/04/21 06:45 Bite Cells Not Reportable 01/04/21 06:45 Crenated Cell Not Reportable 01/04/21 06:45 Elliptocytes Not Reportable 01/04/21 06:45 Acanthocytes (Spur) Not Reportable 01/04/21 06:45 Rouleaux Not Reportable 01/04/21 06:45 Hemoglobin C Crystals Not Reportable 01/04/21 06:45 Schistocytes Not Reportable 01/04/21 06:45 Malaria parasites Not Reportable 01/04/21 06:45 Yovani Bodies Not Reportable 01/04/21 06:45 Hem Pathologist Commnt No 01/04/21 06:45 D-Dimer 926.11 ng/mlDDU (0-234) H 11/26/20 06:04 ABG pH 7.271 (7.320-7.450) L 01/06/21 03:48 POC ABG pCO2 87.1 mmHg (32.0-48.0) H 01/06/21 03:48 ABG pCO2 93.9 mm Hg 01/05/21 Unknown POC ABG pO2 45.0 mmHg (83-108) L 01/06/21 03:48 ABG pO2 43.9 mm Hg (80.0-90.0) L 01/05/21 Unknown POC ABG HCO3 39.2 01/06/21 03:48 ABG HCO3 41.0 mmol/L (20.0-26.0) H 01/05/21 Unknown ABG O2 Saturation 79.3 (0-100) 01/06/21 03:48 ABG O2 Content 8.6 (0.0-44) 01/05/21 Unknown POC ABG Base Excess 9.8 01/06/21 03:48 ABG Base Excess 11.8 mmol/L (-2.0-3.0) H 01/05/21 Unknown ABG Hemoglobin 10.3 (12.0-17.5) L 01/06/21 03:48 ABG Oxyhemoglobin 77.5 (94-98) L 01/06/21 03:48 ABG Carboxyhemoglobin 3.1 % (0.0-5.0) 01/05/21 Unknown ABG Methemoglobin 0.3 (0.0-1.5) 01/06/21 03:48 ABG Sodium 145.3 mmol/L (136.0-145.0) H 01/06/21 03:48 ABG Potassium 4.0 mmol/L (3.40-4.50) 01/06/21 03:48 ABG Chloride 104.0 mmol/L (98-107) 01/06/21 03:48 ABG Glucose 170 mg/dL (65-95) H 01/06/21 03:48 Oxyhemoglobin 70.4 % (95.0-99.0) L 01/05/21 Unknown Carboxyhemoglobin 2.0 (0.5-1.5) H 01/06/21 03:48 FiO2 100 % 01/05/21 Unknown FiO2 % 100 01/06/21 03:48 Sodium 143 mmol/L (137-145) 01/06/21 06:15 Potassium 4.1 mmol/L (3.6-5.0) 01/06/21 06:15 Chloride 103.1 mmol/L (98-107) 01/06/21 06:15 Carbon Dioxide 39 mmol/L (22-30) H 01/06/21 06:15 Anion Gap 5 mmol/L 01/06/21 06:15 BUN 28 mg/dL (9-20) H 01/06/21 06:15 Creatinine 0.5 mg/dL (0.8-1.3) L 01/06/21 06:15 Estimated GFR > 60 ml/min 01/06/21 06:15 BUN/Creatinine Ratio 56 % 01/06/21 06:15 Glucose 173 mg/dL (75-100) H 01/06/21 06:15 POC Glucose 154 mg/dL (70-105) H 01/06/21 05:22 Hemoglobin A1c 11.7 % (4-6) H 11/16/20 05:29 Lactic Acid 2.60 mmol/L (0.7-2.0) H* 11/16/20 05:29 Calcium 6.9 mg/dL (8.4-10.2) L 01/06/21 06:15 Phosphorus 2.60 mg/dL (2.5-4.5) 12/17/20 17:25 Magnesium 1.60 mg/dL (1.7-2.3) L 12/17/20 17:25 Ferritin 778.8 ng/mL (30.0-300.0) H 11/26/20 04:00 Total Bilirubin 0.30 mg/dL (0.1-1.2) 12/31/20 04:00 AST 23 units/L (5-40) 12/31/20 04:00 ALT 23 units/L (7-56) 12/31/20 04:00 Alkaline Phosphatase 107 units/L (35-129) 12/31/20 04:00 Lactate Dehydrogenase 288 units/L (91-180) H 11/26/20 04:00 Total Creatine Kinase 47 units/L (55-170) L 12/17/20 17:25 CK-MB (CK-2) 1.8 ng/mL (0.0-4.0) 12/17/20 17:25 CK-MB (CK-2) Rel Index 3.8 (0-4) 12/17/20 17:25 Troponin T < 0.010 ng/mL (0.00-0.029) 12/11/20 06:30 C-Reactive Protein 1.40 mg/dL (0.00-1.30) H 11/26/20 04:00 NT-Pro-B Natriuret Pep 107.2 pg/mL (0-900) 11/17/20 10:21 Total Protein 6.1 g/dL (6.3-8.2) L 12/31/20 04:00 Albumin 1.4 g/dL (3.9-5) L 12/31/20 04:00 Albumin/Globulin Ratio 0.3 % 12/31/20 04:00 Triglycerides 240 mg/dL (2-149) H 01/05/21 06:00 Procalcitonin 0.16 ng/mL (<0.15) 12/12/20 05:16 Arterial Blood Glucose 170 mg/dL (65-95) H 01/06/21 03:48 Arterial Blood Ionized Calcium 4.4 mg/dL (4.6-5.3) L 01/06/21 03:48 Urine Color Yellow (Yellow) 12/21/20 Unknown Urine Turbidity Cloudy (Clear) 12/21/20 Unknown Urine pH 6.0 (5.0-7.0) 12/21/20 Unknown Ur Specific [place] 1.013 (1.003-1.030) 12/21/20 Unknown Urine Protein <15 mg/dl mg/dL (Negative) 12/21/20 Unknown Urine Glucose (UA) Neg mg/dL (Negative) 12/21/20 Unknown Urine Ketones Neg mg/dL (Negative) 12/21/20 Unknown Urine Blood Neg (Negative) 12/21/20 Unknown Urine Nitrite Neg (Negative) 12/21/20 Unknown Urine Bilirubin Neg (Negative) 12/21/20 Unknown Urine Urobilinogen < 2.0 mg/dL (<2.0) 12/21/20 Unknown Ur Leukocyte Esterase Mod (Negative) 12/21/20 Unknown Urine WBC (Auto) 172.0 /HPF (0.0-6.0) H 12/21/20 Unknown Urine RBC (Auto) > 182.0 /HPF (0.0-6.0) 12/21/20 Unknown U Epithel Cells (Auto) 3.0 /HPF (0-13.0) 12/21/20 Unknown Urine Bacteria (Auto) 2+ /HPF (Negative) 12/21/20 Unknown Ur Renal Epithelial Cell <1 /LPF 12/21/20 Unknown Urine Mucus 2+ /HPF 12/21/20 Unknown Urine Yeast (Budding) 3+ /HPF 12/21/20 Unknown Vancomycin Trough 16.9 ug/mL (5.0-20.0) 12/19/20 15:46 Coronavirus (PCR) Positive (Negative) A 01/05/21 10:10 Hepatitis A IgM Ab Non-reactive (NonReactive) 12/17/20 21:40 Hep Bs Antigen Non-reactive (Negative) 12/17/20 21:40 Hep B Core IgM Ab Non-reactive (NonReactive) 12/17/20 21:40 Hepatitis C Antibody Non-reactive (NonReactive) 12/17/20 21:40 HIV 1&2 Antibody Rapid Non react (Non React) 12/17/20 21:40 HIV P24 Antigen Non react (Non React) 12/17/20 21:40 Blood Type O POSITIVE 01/05/21 16:20 Antibody Screen Negative 01/05/21 16:20 Crossmatch See Detail 01/05/21 16:20 - Diagnostic Impressions Diagnostic Impressions: Echocardiogram 11/16/20 10:34 Transthoracic Echocardiogram Indication: Shortness of breath-COVID BP: 108/77 HR: 92 Conclusions *Global left ventricular systolic function is normal. *The estimated ejection fraction is 60-65%. *Mild to moderate concentric left ventricular hypertrophy is observed. *There is trace of mitral regurgitation. *There is mild to moderate tricuspid regurgitation. *There is evidence of mild pulmonary hypertension. *The right ventricular systolic pressure is calculated at 31 mmHg. Findings Left Ventricle: The left ventricular chamber size is normal. Mild to moderate concentric left ventricular hypertrophy is observed. Global left ventricular systolic function is normal. The estimated ejection fraction is 60-65%. Left Atrium: The left atrial chamber size is normal. Right Ventricle: The right ventricular cavity size is normal. The right ventricular global systolic function is normal. Right Atrium: The right atrial cavity size is normal. Aortic Valve: The aortic valve is trileaflet. There is no evidence of aortic regurgitation. There is no evidence of aortic stenosis. Mitral Valve: The mitral valve leaflets appear normal. There is trace of mitral regurgitation. There is no evidence of mitral stenosis. Tricuspid Valve: The tricuspid valve leaflets are normal. There is mild to moderate tricuspid regurgitation. The right ventricular systolic pressure is calculated at 31 mmHg. There is evidence of mild pulmonary hypertension. Pulmonic Valve: There is trace pulmonic regurgitation. Pericardium: There is no pericardial effusion. Aorta: There is no dilatation of the ascending aorta. There is no dilatation of the aortic root. Venous: The inferior vena cava appears normal in size. Measurements Chambers 2D Name Value Normal Range IVSd (2D) 0.81 cm (0.6 - 1.1) LVPWd (2D) 0.79 cm (0.6 - 1.1) LVIDd (2D) 4.22 cm (3.7 - 5.6) LVIDs (2D) 3.1 cm (2 - 3.8) LV FS (2D) 26.71 % - EF Teichholz (2D) 52.55 % - Ao root diameter (2D) 3.34 cm (2 - 3.7) Volumes/Mass Name Value Normal Range LA ESV SP 4CH (A/L) 10.87 ml - LA ESV SP 2CH (A/L) 18.74 ml - LA ESV BP (A/L) 16.38 ml - LA ESV BP (A/L) index 8.62 ml/m2 - LA ESV SP 4CH (MOD) 10.32 ml - LA ESV SP 2CH (MOD) 17.66 ml - LA ESV BP (MOD) 15.12 ml - LA ESV BP (MOD) index 7.96 ml/m2 - Diastolic/Systolic Function Name Value Normal Range MV E-wave Vmax 0.76 m/sec - MV deceleration time 133.63 msec - MV A-wave Vmax 1.1 m/sec - MV E:A ratio 0.69 ratio - Aortic Valve Name Value Normal Range AV Vmax 1.44 m/sec - AV VTI 22.94 cm - AV peak gradient 8.33 mmHg - AV mean gradient 4.73 mmHg - LVOT diameter 2.2 cm - LVOT Vmax 1.04 m/sec - LVOT VTI 18.88 cm - LVOT peak gradient 4.34 mmHg - LVOT mean gradient 2.31 mmHg - SV LVOT 72.05 ml - EVANGELISTA (continuity Vmax) 2.75 cm2 - EVANGELISTA (continuity VTI) 3.14 cm2 - Tricuspid Valve Name Value Normal Range TR Vmax 2.64 m/sec - TR peak gradient 28 mmHg - RAP 3 mmHg - RVSP 31 mmHg - Gupta/IV: Voiding Method Indwelling Catheter IV Catheter Type [Left Peripheral IV Antecubital] Active Medications - Current Medications Current Medications: Generic Name Dose Route Start Last Admin Trade Name Freq PRN Reason Stop Dose Admin Acetaminophen 650 mg 11/15/20 23:55 01/05/21 09:53 Acetaminophen 325 Mg Tab PO 650 mg Q4H PRN Administration Pain MILD(1-3)/Fever >100.5/BUTTS Lipase/Protease/Amylase 1 each 11/23/20 11:53 01/03/21 09:18 Lipase 10,500/Protease 25,000/Amylase 43,750 (Units) Dr Slater FEEDTUBE 1 each PRN PRN Administration For Clogged Feeding Tube Dextrose 25 ml 12/10/20 05:21 12/28/20 12:18 Dextrose 50% In Water (25gm) 50 Ml Syringe IV 10 ml Q30MIN PRN Administration Hypoglycemia Protocol Hydrophilic Ointment 1 applic 11/21/20 21:53 11/30/20 21:33 Lip Therapy Vaseline TP 1 applic Q2HR PRN Administration Dry Lips Midazolam HCl 100 mg/ Sodium 100 mls @ 2 mls/hr 11/21/20 22:00 01/06/21 09:28 Chloride IV 1 mg/hr TITR RAEANN 1 mls/hr Titration Protocol 2 MG/HR Propofol 1,000 mg in 100 mls @ 2.175 mls/hr 11/27/20 12:00 01/06/21 09:27 Diprivan 10 Mg/Ml IV 20 mcg/kg/min TITR RAEANN 8.7 mls/hr Administration Protocol 5 MCG/KG/MIN Dexmedetomidine HCl 400 mcg/ 104 mls @ 4.441 mls/hr 12/10/20 13:00 01/06/21 06:10 Sodium Chloride IV 0.7 mcg/kg/hr TITRATE RAEANN 15.543 mls/hr Administration Protocol 0.2 MCG/KG/HR Fentanyl Citrate 2,000 mcg in 100 mls @ 3.9 mls/hr 12/18/20 19:00 01/06/21 04:56 Fentanyl Drip Premix IV 4 mcg/kg/hr TITR RAEANN 15.6 mls/hr Administration Protocol 1 MCG/KG/HR Norepinephrine 8 mg/ Sodium 250 mls @ 3.75 mls/hr 12/25/20 22:00 01/06/21 04:00 Chloride IV 6 mcg/min TITR RAEANN 11.25 mls/hr Titration Protocol 2 MCG/MIN Lorazepam 1 mg 01/02/21 01:05 Lorazepam 2 Mg/Ml Vial IV Q4H PRN Agitation Multi-Ingred Cream/Lotion/Oil/Oint 1 applic 11/21/20 21:53 Mineral Oil/Petrolatum, White Ophth Oint 3.5 Gm OU Q4HR PRN Dry Eye(s) Simple Syrup 15 ml 11/23/20 11:53 Simple Syrup 15 Ml FEEDTUBE PRN PRN Hypoglycemia Simple Syrup 30 ml 11/23/20 11:53 Simple Syrup 15 Ml FEEDTUBE PRN PRN Hypoglycemia Sodium Bicarbonate 325 mg 11/23/20 11:53 01/03/21 09:18 Sodium Bicarbonate 325 Mg Tab FEEDTUBE 325 mg PRN PRN Administration For Clogged Feeding Tube Sodium Chloride 10 ml 11/15/20 23:55 12/03/20 00:21 Sodium Chloride 0.9% 10 Ml Flush Syringe IV 10 ml PRN PRN Administration LINE FLUSH Nutrition/Malnutrition Assess - Dietary Evaluation Nutrition/Malnutrition Findings: Nutrition Notes Start: 11/20/20 12:03 Freq: Status: Active Protocol: Document 01/01/21 12:52 AL (Rec: 01/01/21 12:59 AL [id number]) Co-Sign 01/01/21 12:52 LP Nutrition Notes Initial or Follow up Reassessment Current Diagnosis Diabetes,Sepsis,Respiratory Failure Other Pertinent Diagnosis Bilat pneu, COVID-19 (+) Current Diet Glucerna 1.2 at 65 ml/hr Labs/Tests Reviewed Pertinent Medications Propofol at 6.525 ml/hr (172 kcal) Lantus Colace Miralax Height 5 ft 6 in Weight 91.1 kg Usual Body Weight 80.5 kg [place] Body Weight (kg) 64.54 BMI 32.4 Weight change and time frame 3% wt gain (2.7 kig) noted. Pt has 3+ pitting edema Weight Status Obese Subjective/Other Information F/U for TF tolerance. Pt is tolerating TF at 65 ml/hr ( goal rate). Percent of energy/protein needs met: 100%/100% Burn Absent Trauma Absent GI Symptoms None Difficulty In Swallowing,Chewing Current % PO Negligible Minimum of two criteria Yes Interpretation of Weight Loss (severe) >2% in 1 week Fluid Accumulation Moderate to Severe (severe) #3 Nutrition Diagnosis Inadequate oral intake Diagnosis Progress(for reassessment Continues documentation) #2 Nutrition Diagnosis Malnutrition As Evidenced by Signs and Symptoms Pt meeting 100%/100% of estimated energy/protein needs via TF for >7 days Diagnosis Progress(for reassessment Improved documentation) #1 Nutrition Diagnosis Unintended weight loss Diagnosis Progress(for reassessment Continues documentation) Is patient on ventilator? Yes Is Patient Ambulatory and/or Out of Bed No REE-([facility]-confined to bed) 2006.072 Kcal/Kg value to use for calculation 22 Approximate Energy Requirements Using 2004 kcal/Kg Calculation Used for Recommendations [facility] Additional Notes Protein: 87-145 g/day (1.2-2g/ kg) Fluid: 1ml/kcal or per MD Nutrition Intervention Change Diet Order: Continue TF Nutrition Support: Glucerna 1.2 at 65 ml/hr. Flush 125 ml q4h Kcal 1,872 Protein (gm) 93 Fluid (mL) 1,255 Goal #1 Meet at least 75% of energy and protein needs via TF Goal #2 TF tolerance Anticipated Discharge Needs: Unable to determine at this time Follow-Up By: 01/08/21 Additional Comments F/U for TF tolerance.
[2021-01-06] MEDS: NORepinephrine 8 MG in SODIUM CHLORIDE 0.9% 250ML 242 ML IV SCH ×2 (17:43→19:35)
[2021-01-06] MEDS: ACETAMINOPHEN 325 MG TAB PO PRN (20:13)
[2021-01-07] MEDS: fentaNYL DRIP Premix 2,000 MCG/100 ML BAG IV SCH ×3 (03:02→18:33)
--- NOTE | 2021-01-07 11:47 | Event Note ---
Date: 01/07/21 Continue comfort measures, family coming to pay respects and to withdraw care later today.
--- NOTE | 2021-01-07 13:46 | Progress Note ---
Assessment and Plan Assessment and plan: -vasopressor support -RASS goal -4 per CCM -Chest tube -Maintained on mechanical ventilation -Continue supportive care -ID and critical care following -Prognosis is very poor -We anticipate a visit from his brother on 01/07 with withdrawal of care. DVT/GI prophylaxis: SCDs to bilateral lower extremities while in bed, Lovenox subcu, PPI Disposition: ICU History Interval history: 59-year-old female who is smoker who presented to [facility] with shortness of breath cough fever weakness for 1 to 2 days prior to arrival. Per EMS the patient was severely hypoxic with saturations in the low 80s. With all oxygen and nonrebreather came down to low 90s. ID, pulmonary, CCM were consulted. Septic Shock Coag Negative staph/Entrococcus bactermia MRSA/Klebsiella in sputum COVID-19 pneumonia Acute hypoxic hypercapnic respiratory failure Bilateral pneumothorax Pneumomediastinum with subcutaneous emphysema Elevated D-dimer Transaminitis secondary to Covid 19 Klebsiella pneumonia Type 2 diabetes mellitus Severe protien calorie malnutrition secondary to critical illness Metabolic alkalosis Hypercapnia 2/: Patient continues on BiPAP throughout the night. Labs are remarkable for hypoxia with improving renal function but lactic acidosis without fever. CTA has been ordered to rule out pulmonary embolism. I agree with increasing enoxaparin to twice daily full dose for empiric treatment of pulmonary embolism. Will obtain ID consultation on further evaluation for possible underlying pneumonia versus COVID-19. We will also obtain echocardiogram for evaluation. Will discontinue fluids at this time. 2/2; Continue supportive care, Patient remains with very guarded prognosis, remains on BiPAP, continues on Remdesivir, and steroids. Will continue anticoagulation, unable to get CTA Chest due to patients unstable clinical sta tus. Will adjust insulin for better blood glucose 2/3: Continues on BIPAP, no clear improvement at this time. Will continue steroids therapy Remdesivir and also Full anticoagulation at this time. Will update family. Discussed with Bottom Ironer. 2/4: Taking a break from the BiPAP on high flow and nonrebreather 100% with saturation of 90% becomes hypoxic with any movement. Bottom Ironer input noted will get a dose of Lasix today. Will await a discussion with ID for possibly increasing steroid. I updated Patient's Cousin, Tayla Esquivel who is the emergency contact lens fitter. Blood sugar remains fluctuating secondary to steriods, Encouraged Prone positioning. Noted with mild hyponatremia we will continue to monitor and manage 11/20: Continue supportive care wean oxygen as tolerated prognosis remains guarded. Encouraged to progress as tolerated. Awaiting labs today. Discussed with nursing staff and patient at bedside. 11/21: Discontinued Dexamethasone as Solumedrol started secondary to increased oxygen demand. Will give additional insulin for better control. Continue oxygen support patient still on high flow. Prognosis still guarded 11/22: Patient was intubated and placed on mechanical ventilation. Continue current medication. Will check a.m. labs today. Noted still with hypotension. Doubt septic shock at this time as patient has no new fever. Will adjust insulin for better blood sugar control. 11/23: Patient admitted with COVID-19 despite all efforts patient remains severely hypoxic and now is intubated. Bottom Ironer input noted. Blood pressure marginal at this time. Very poor prognosis. Continue Solu-Medrol. 11/24. Patient remains very hypoxic. Blood pressure borderline. Plan for initiation of paralytic agents as per food specialist. Patient may need to be transferred if no improvement. 11/26. Off paralytics. Remains intubated. On steroids. Prognosis is poor. 11/27. Chest xray shows pneumomediastinum and subcutaneous emphysema. Surgery consulted. Plan for chest tube placement. Sputum culture grew MRSA. Patient started on vancomycin per ID. 11/28. Right chest tube placed yesterday by surgery. Repeat chest x-ray showed left small pneumothorax. Plan for chest tube placement on the left today. Remains on paralytic agents. 11/29. Remains intubated on vent. Had left chest tube placed yesterday. Vitals reviewed. Critical care following 11/30/ Remains on mechanical ventilation. Worsening hypoxia. Bilateral chest tubes in place. Vitals reviewed. Labs reviewed 12/01: Chest tube and mechanical ventilation remains in place, poor prognosis, FIO2 remains at 90%, adjust insulin for better blood glucose control 12/02: Patient remains on full ventilatory support and steroids, still with worsening leukocytosis ?inflammatory or infectious vs steroids. Continue vancomycin. 12/03; slowly weaning, 12/04: Still on the vent FiO2 down to 65% PEEP remains at 18. Still with poor prognosis. 12/05: Patient continues on full ventilatory support per food specialist PEEP remains at 18. Still with hypercapnic respiratory failure. FiO2 down to 60% this morning. Chest tube to suction still weaning off steroids in the deliberation ongoing for possible a third chest tube as last documentation by surgery shows no plan for it at this time. Continue to manage insulin for better blood sugar control. 12/06:weaned down to 60%, continue supportive care, unable to wean, 12/07; patient remains intubated on ventilatory support, chest tubes in place trach and PEG when patient's Covid test is negative,Per surgery. 12/08; Patient remains intubated remains with hypercapnia and hypoxia. Chest tube still remain in place. He is off antibiotics at this time. Continue steroids which is likely resultant to the leukocytosis. Bottom Ironer and surgeon following ID input is noted. Prognosis remains guarded to poor 12/10; patient remains intubated on vent, unable to wean awaiting trach and PEG when Covid test is negative, Continue current management 12/11; patient awaiting trach and PEG when Covid test is negative, vent dependent, poor prognosis 12/12; clinically no change, vent dependent, Patient is critically ill with very poor prognosis, awaiting trach and PEG when COVID-19 test turns negative. Plan discussed with nursing staff. Caregivers have discussed with patient's family periodically 12/13: Patient is critically ill with very poor prognosis, awaiting trach and PEG when COVID-19 test turns negative. Plan discussed with nursing staff. Caregivers have discussed with patient's family periodically 12/14: Increase UOP which we will monitor and replete as needed. Patient remain hypoxemic on ABG despite 100 FiO2, remains on fentanyl, precedex, versed and levo gtt. 12/15: Patient remains sedated on fentanyl at 3 mcg, Versed at 30 mg, dexamethasone 0.3 and was on Levophed 6 mcg this morning. Patient's vent settings rate of 30, tidal volume 425, PEEP of 18, FiO2 of 85. RT attempted to wean as tolerated. No acute events reported overnight. Bilateral chest tubes to wall suction. 12/16: Overnight the patient was noted to be bradycardic, Precedex drip was increased to 0.6/fentanyl to 4 mcg/Versed 5 mg, bilateral chest tube to suction. Current vent settings for 425/30/18/0.75, RT to wean as tolerated 12/17: Patient's T-max overnight was 101.2, obtain CXR today, blood culture x2 per ID. Patient remains on fentanyl, Versed, Precedex and Levophed. Current vent settings AC 425/30/18/0.75, RT to wean as tolerated. Continue steroid taper. 12/18: Patient remains sedated on fentanyl, Versed, Precedex and has vasopressor support of Levophed, current vent settings 425/30/18/0.75 with bilateral chest tubes to wall suction. Patient's blood culture from 12/17 grew gram-positive cocci in pairs and chains however the patient is on vancomycin and cefepime. We will continue to follow for speciation and sensitivity. 12/19: Unfortunately remains on full ventilatory support prognosis remains very poor. No new fever however since 12/17. Continue to follow cultures not final ized yet. Antibiotics per ID critical care management input noted. Patient remains on high FiO2 and PEEP at this time. 12/20: Still with intermittent fever, likely secondary to covid 19, still with h yponatremia, continue with tube feed. cultures with coagulas negative staph, await further ID input. Continues on abx. 12/21: Patient remains on fentanyl, Precedex, Versed and Levophed and assist con trol for 25/30/18/.100 with bilateral chest tubes in place. Patient remains on antibiotic therapy. No acute events reported overnight. 12/22: Patient remains sedated on Precedex and fentanyl and on vasopressor support, blood cultures grew coag negative Staphylococcus and Enterococcus and antibiotic therapy was deescalated to ampicillin by infectious disease. This morning patient was on assist control for 25/30/18/0.100 and respiratory therapy to decrease FiO2 as tolerated. 12/23: Patient remains sedated on Versed, fentanyl, propofol, dexamethasone and vasopressor support with Levophed. Patient is on ampicillin with a T-max of 99 and current vent settings assist-control 425/30/18/0.90 which is being weaned as tolerated by RT. Patient bowel regimen escalated. 12/24: Patient was febrile overnight to 102, remains sedated on Versed, fentanyl, propofol and Precedex and on respiratory support with Levophed. This morning at the time my examination patient was on assist control 425/30/18/0.100. Patient's bowel regimen was escalated. This afternoon patient SPO2 dropped into the upper 60s and low 70s, patient was removed off the ventilator and bagged by RT with improvement in his SPO2 to mid 70s and his ventilator settings were adjusted with an increase in PEEP to 22 and reduction in tidal volume. Patient remained with SPO2 in the 70s to 80s then suddenly dropped his SPO2 again. A CXR was obtained and patient received 40 mg of IV Lasix. CXR showed pneumothorax and general surgery was consulted for chest tube placement. Patient's existing right chest tube was replaced after removal. During chest tube was placed on the right side and a repeat CXR is being performed. Dr. Kem moreno and Dr. Henry were kept up to date throughout the process and Dr. Henry was at beside during this time. I attempted to call Kehinde but was unable to contact him but left a voicemail. Jd was called and informed of changes with translation provided by Tayla. I spoke to them on the phone for over 30 minutes and explained the situation. They did not wish to change his CODE STATUS. Per CCM the patient respikes his temperature over the next 24 hours we will reculture his urine and blood. Patient remains on antibiotic therapy for 14 days per infectious disease 01/04/2021. Repeat blood cultures are negative. 12/25: Patient developed subcu emphysema on right chest and a repeat CXR shows minimal pneumothorax on the right chest wall which has not increased in size. At the time of my examination patient was on assist control 400/30/18/0.100 and the subcutaneous emphysema was noted after the patient's PEEP was increased. Patient remains sedated on Versed, fentanyl, Precedex and propofol with vasopressor support of Levophed. Patient's family decided to make the patient an AND and his CODE STATUS was updated. We will continue supportive care. Infectious disease has escalated antibiotic therapy to Zosyn. 12/26. Remains mechanically ventilated. On AC 30/400/100% PEEP 22. Not responsive. Sedated. On pressors. Labs reviewed. On antibiotics. 12/27. No change in medical condition. Remains on AC 30/40/1 100% PEEP of 22. Sedated and on pressors. On antibiotics-Zosyn. ID and critical care on board. General surgery also following for management of chest tubes. Prognosis is very poor 12/28: Patient remains sedated on Versed, fentanyl, propofol and Precedex and has vasopressor support with Levophed quad strength at 22. Patient subcu air seems to be bilateral in his upper chest. At the time my examination patient is on 400/30/22/.95 and RT will wean his vent 0.90. Patient still has leukocytosis, metabolic alkalosis, hypokalemia. 12/29: Patient remains sedated on Versed, fentanyl, Precedex and propofol with vasopressor support with Levophed. Patient remains on assist control 400/30/22/0.90 and still [place] ptosis. Patient hypokalemia has resolved 12/30: Remains sedated on propofol, Versed, fentanyl, Precedex and on Levophed. Current vent settings assist-control 400/30/22/0.80 and improving leukocytosis and metabolic alkalosis. He will complete Zosyn today. No acute events reported overnight. Patient's urine output has decreased over the past couple days and we will continue to monitor. 12/31: Patient remains intubated on mechanical ventilation. Continue RASS goal - 4 per CCM. Continue Zosyn per ID recommendations with completion of antibiotics tomorrow. Patient with extremely poor prognosis and agree with DNR status. 01/01: Patient currently on AC/PRVC mode rate 30, tidal volume 400, FiO2 100% and PEEP of 22. Patient currently with sedation of propofol, fentanyl and Versed. Patient requiring pressors of Levophed. Currently chest tubes to suction and repeat chest x-ray on Monday. Wean FiO2 as tolerated. Guarded prognosis. 01/02: Patient currently on AC/PRVC mode rate 30, tidal volume 400, FiO2 80% and PEEP of 22. Patient currently with sedation of propofol, fentanyl and Versed. Patient requiring pressors of Levophed. Currently chest tubes to suction and repeat chest x-ray on Monday. Wean FiO2 as tolerated. Guarded prognosis. 01/03: Pulmonary reports inability to wean FiO2. Patient currently on AC/PRVC mode rate 30, tidal volume 400, FiO2 80% and PEEP of 22. Currently chest tubes to suction and repeat chest x-ray on Monday. Continue pressors to maintain MAP > 65. Poor prognosis. 01/04: Patient remains sedated on fentanyl, Versed, propofol, Precedex and with minimal support with Levophed with bilateral chest tubes in place current vent settings for 25//22/0.100. Per [facility] patient family will be approached for c omfort measures if no improvement by Monday. No acute events reported overnight. 01/05: Patient was febrile overnight, remains on Precedex, fentanyl, propofol, Levophed and Versed. Patient remains on full ventilatory support. Goals of care discussion with family. [facility] on Monday. Repeat COVID-19 PCR positive 01/06: Yesterday patient had a pool of blood between his legs and he received 2 unit PRBC. Stat H/H showed 6.9. This morning his H/H 9.6/31. His ABG 100% FiO2 seven-point / 9.2 and he remains sedated on fentanyl, Versedpropofol and Precedex. Patient remains on vasopressor support with Levophed. He is on assist control ///0.100. Dr. German spoke to his family and the patient's brother will visit tomorrow for withdrawal of care. 01/07 patient remains on sedation and vasopressor support on assist control. Patient is on comfort measures awaiting the arrival of his brother. Hospitalist Physical - Physical exam Narrative exam: not conducted d/t initiation of comfort measure in effort to not induce unnecessary stress - Constitutional Vitals: Temp Pulse Resp BP Pulse Ox 99.2 F 116 H 30 H 118/72 76 L 01/07/21 12:00 01/07/21 11:22 01/07/21 07:00 01/07/21 11:22 01/07/21 11:22 General appearance: Present: no acute distress, other (comatose) HEART Score - HEART Score Troponin: Troponin T < 0.010 ng/mL (0.00-0.029) 12/11/20 06:30 Results - Labs CBC & Chem 7: 01/06/21 06:15 01/06/21 06:15 Labs: Laboratory Last Values WBC 14.4 K/mm3 (4.5-11.0) H 01/06/21 06:15 RBC 3.44 M/mm3 (3.65-5.03) L 01/06/21 06:15 Hgb 9.6 gm/dl (11.8-15.2) L 01/06/21 06:15 Hct 31.1 % (35.5-45.6) L D 01/06/21 06:15 MCV 91 fl (84-94) 01/06/21 06:15 MCH 28 pg (28-32) 01/06/21 06:15 MCHC 31 % (32-34) L 01/06/21 06:15 RDW 18.4 % (13.2-15.2) H 01/06/21 06:15 Plt Count 373 K/mm3 (140-440) 01/06/21 06:15 Lymph % (Auto) 9.2 % (13.4-35.0) L 12/30/20 04:00 [place] % (Auto) 2.9 % (0.0-7.3) 12/30/20 04:00 Eos % (Auto) 0.6 % (0.0-4.3) 12/30/20 04:00 Baso % (Auto) 0.3 % (0.0-1.8) 12/30/20 04:00 Lymph # (Auto) 1.4 K/mm3 (1.2-5.4) 12/30/20 04:00 [place] # (Auto) 0.4 K/mm3 (0.0-0.8) 12/30/20 04:00 Eos # (Auto) 0.1 K/mm3 (0.0-0.4) 12/30/20 04:00 Baso # (Auto) 0.0 K/mm3 (0.0-0.1) 12/30/20 04:00 Add Manual Diff Complete 01/04/21 06:45 Total Counted 100 01/04/21 06:45 Seg Neutrophils % 87.0 % (40.0-70.0) H 12/30/20 04:00 Seg Neuts % (Manual) 79.0 % (40.0-70.0) H 01/04/21 06:45 Band Neutrophils % 5.0 % 01/03/21 06:00 Lymphocytes % (Manual) 15.0 % (13.4-35.0) 01/04/21 06:45 Monocytes % (Manual) 6.0 % (0.0-7.3) 01/04/21 06:45 Eosinophils % (Manual) 1.0 % (0.0-4.3) 01/03/21 06:00 Metamyelocytes % 1.0 % 01/03/21 06:00 Myelocytes % 1.0 % 12/31/20 Unknown Nucleated RBC % Not Reportable 01/04/21 06:45 Seg Neutrophils # 13.1 K/mm3 (1.8-7.7) H 12/30/20 04:00 Seg Neutrophils # Man 10.3 K/mm3 (1.8-7.7) H 01/04/21 06:45 Band Neutrophils # 0.0 K/mm3 01/04/21 06:45 Lymphocytes # (Manual) 2.0 K/mm3 (1.2-5.4) 01/04/21 06:45 Abs React Lymphs (Man) 0.0 K/mm3 01/04/21 06:45 Monocytes # (Manual) 0.8 K/mm3 (0.0-0.8) 01/04/21 06:45 Eosinophils # (Manual) 0.0 K/mm3 (0.0-0.4) 01/04/21 06:45 Basophils # (Manual) 0.0 K/mm3 (0.0-0.1) 01/04/21 06:45 Metamyelocytes # 0.0 K/mm3 01/04/21 06:45 Myelocytes # 0.0 K/mm3 01/04/21 06:45 Promyelocytes # 0.0 K/mm3 01/04/21 06:45 Blast Cells # 0.0 K/mm3 01/04/21 06:45 WBC Morphology Not Reportable 01/04/21 06:45 Hypersegmented Neuts Not Reportable 01/04/21 06:45 Hyposegmented Neuts Not Reportable 01/04/21 06:45 Hypogranular Neuts Not Reportable 01/04/21 06:45 Smudge Cells Not Reportable 01/04/21 06:45 Toxic Granulation Not Reportable 01/04/21 06:45 Toxic Vacuolation Not Reportable 01/04/21 06:45 Dohle Bodies Not Reportable 01/04/21 06:45 Pelger-Huet Anomaly Not Reportable 01/04/21 06:45 Tony Rods Not Reportable 01/04/21 06:45 Platelet Estimate Not Reportable 01/04/21 06:45 Clumped Platelets Not Reportable 01/04/21 06:45 Plt Clumps, EDTA Not Reportable 01/04/21 06:45 Large Platelets Not Reportable 01/04/21 06:45 Giant Platelets Not Reportable 01/04/21 06:45 Platelet Satelliting Not Reportable 01/04/21 06:45 Plt Morphology Comment Not Reportable 01/04/21 06:45 RBC Morphology Not Reportable 01/04/21 06:45 Dimorphic RBCs Not Reportable 01/04/21 06:45 Polychromasia 1+ 01/04/21 06:45 Hypochromasia Not Reportable 01/04/21 06:45 Poikilocytosis Not Reportable 01/04/21 06:45 Anisocytosis 1+ 01/04/21 06:45 Microcytosis Few 01/04/21 06:45 Macrocytosis Not Reportable 01/04/21 06:45 Spherocytes Not Reportable 01/04/21 06:45 Pappenheimer Bodies Not Reportable 01/04/21 06:45 Sickle Cells Not Reportable 01/04/21 06:45 Target Cells Not Reportable 01/04/21 06:45 Tear Drop Cells Not Reportable 01/04/21 06:45 Ovalocytes Not Reportable 01/04/21 06:45 Stomatocytes Rare 12/27/20 14:09 Helmet Cells Not Reportable 01/04/21 06:45 [place] Bodies Not Reportable 01/04/21 06:45 [place] Rings Not Reportable 01/04/21 06:45 Henrry Cells Not Reportable 01/04/21 06:45 Bite Cells Not Reportable 01/04/21 06:45 Crenated Cell Not Reportable 01/04/21 06:45 Elliptocytes Not Reportable 01/04/21 06:45 Acanthocytes (Spur) Not Reportable 01/04/21 06:45 Rouleaux Not Reportable 01/04/21 06:45 Hemoglobin C Crystals Not Reportable 01/04/21 06:45 Schistocytes Not Reportable 01/04/21 06:45 Malaria parasites Not Reportable 01/04/21 06:45 Yovani Bodies Not Reportable 01/04/21 06:45 Hem Pathologist Commnt No 01/04/21 06:45 D-Dimer 926.11 ng/mlDDU (0-234) H 11/26/20 06:04 ABG pH 7.271 (7.320-7.450) L 01/06/21 03:48 POC ABG pCO2 87.1 mmHg (32.0-48.0) H 01/06/21 03:48 ABG pCO2 93.9 mm Hg 01/05/21 Unknown POC ABG pO2 45.0 mmHg (83-108) L 01/06/21 03:48 ABG pO2 43.9 mm Hg (80.0-90.0) L 01/05/21 Unknown POC ABG HCO3 39.2 01/06/21 03:48 ABG HCO3 41.0 mmol/L (20.0-26.0) H 01/05/21 Unknown ABG O2 Saturation 79.3 (0-100) 01/06/21 03:48 ABG O2 Content 8.6 (0.0-44) 01/05/21 Unknown POC ABG Base Excess 9.8 01/06/21 03:48 ABG Base Excess 11.8 mmol/L (-2.0-3.0) H 01/05/21 Unknown ABG Hemoglobin 10.3 (12.0-17.5) L 01/06/21 03:48 ABG Oxyhemoglobin 77.5 (94-98) L 01/06/21 03:48 ABG Carboxyhemoglobin 3.1 % (0.0-5.0) 01/05/21 Unknown ABG Methemoglobin 0.3 (0.0-1.5) 01/06/21 03:48 ABG Sodium 145.3 mmol/L (136.0-145.0) H 01/06/21 03:48 ABG Potassium 4.0 mmol/L (3.40-4.50) 01/06/21 03:48 ABG Chloride 104.0 mmol/L (98-107) 01/06/21 03:48 ABG Glucose 170 mg/dL (65-95) H 01/06/21 03:48 Oxyhemoglobin 70.4 % (95.0-99.0) L 01/05/21 Unknown Carboxyhemoglobin 2.0 (0.5-1.5) H 01/06/21 03:48 FiO2 100 % 01/05/21 Unknown FiO2 % 100 01/06/21 03:48 Sodium 143 mmol/L (137-145) 01/06/21 06:15 Potassium 4.1 mmol/L (3.6-5.0) 01/06/21 06:15 Chloride 103.1 mmol/L (98-107) 01/06/21 06:15 Carbon Dioxide 39 mmol/L (22-30) H 01/06/21 06:15 Anion Gap 5 mmol/L 01/06/21 06:15 BUN 28 mg/dL (9-20) H 01/06/21 06:15 Creatinine 0.5 mg/dL (0.8-1.3) L 01/06/21 06:15 Estimated GFR > 60 ml/min 01/06/21 06:15 BUN/Creatinine Ratio 56 % 01/06/21 06:15 Glucose 173 mg/dL (75-100) H 01/06/21 06:15 POC Glucose 190 mg/dL (70-105) H 01/07/21 05:29 Hemoglobin A1c 11.7 % (4-6) H 11/16/20 05:29 Lactic Acid 2.60 mmol/L (0.7-2.0) H* 11/16/20 05:29 Calcium 6.9 mg/dL (8.4-10.2) L 01/06/21 06:15 Phosphorus 2.60 mg/dL (2.5-4.5) 12/17/20 17:25 Magnesium 1.60 mg/dL (1.7-2.3) L 12/17/20 17:25 Ferritin 778.8 ng/mL (30.0-300.0) H 11/26/20 04:00 Total Bilirubin 0.30 mg/dL (0.1-1.2) 12/31/20 04:00 AST 23 units/L (5-40) 12/31/20 04:00 ALT 23 units/L (7-56) 12/31/20 04:00 Alkaline Phosphatase 107 units/L (35-129) 12/31/20 04:00 Lactate Dehydrogenase 288 units/L (91-180) H 11/26/20 04:00 Total Creatine Kinase 47 units/L (55-170) L 12/17/20 17:25 CK-MB (CK-2) 1.8 ng/mL (0.0-4.0) 12/17/20 17:25 CK-MB (CK-2) Rel Index 3.8 (0-4) 12/17/20 17:25 Troponin T < 0.010 ng/mL (0.00-0.029) 12/11/20 06:30 C-Reactive Protein 1.40 mg/dL (0.00-1.30) H 11/26/20 04:00 NT-Pro-B Natriuret Pep 107.2 pg/mL (0-900) 11/17/20 10:21 Total Protein 6.1 g/dL (6.3-8.2) L 12/31/20 04:00 Albumin 1.4 g/dL (3.9-5) L 12/31/20 04:00 Albumin/Globulin Ratio 0.3 % 12/31/20 04:00 Triglycerides 240 mg/dL (2-149) H 01/05/21 06:00 Procalcitonin 0.16 ng/mL (<0.15) 12/12/20 05:16 Arterial Blood Glucose 170 mg/dL (65-95) H 01/06/21 03:48 Arterial Blood Ionized Calcium 4.4 mg/dL (4.6-5.3) L 01/06/21 03:48 Urine Color Yellow (Yellow) 12/21/20 Unknown Urine Turbidity Cloudy (Clear) 12/21/20 Unknown Urine pH 6.0 (5.0-7.0) 12/21/20 Unknown Ur Specific [place] 1.013 (1.003-1.030) 12/21/20 Unknown Urine Protein <15 mg/dl mg/dL (Negative) 12/21/20 Unknown Urine Glucose (UA) Neg mg/dL (Negative) 12/21/20 Unknown Urine Ketones Neg mg/dL (Negative) 12/21/20 Unknown Urine Blood Neg (Negative) 12/21/20 Unknown Urine Nitrite Neg (Negative) 12/21/20 Unknown Urine Bilirubin Neg (Negative) 12/21/20 Unknown Urine Urobilinogen < 2.0 mg/dL (<2.0) 12/21/20 Unknown Ur Leukocyte Esterase Mod (Negative) 12/21/20 Unknown Urine WBC (Auto) 172.0 /HPF (0.0-6.0) H 12/21/20 Unknown Urine RBC (Auto) > 182.0 /HPF (0.0-6.0) 12/21/20 Unknown U Epithel Cells (Auto) 3.0 /HPF (0-13.0) 12/21/20 Unknown Urine Bacteria (Auto) 2+ /HPF (Negative) 12/21/20 Unknown Ur Renal Epithelial Cell <1 /LPF 12/21/20 Unknown Urine Mucus 2+ /HPF 12/21/20 Unknown Urine Yeast (Budding) 3+ /HPF 12/21/20 Unknown Vancomycin Trough 16.9 ug/mL (5.0-20.0) 12/19/20 15:46 Coronavirus (PCR) Positive (Negative) A 01/05/21 10:10 Hepatitis A IgM Ab Non-reactive (NonReactive) 12/17/20 21:40 Hep Bs Antigen Non-reactive (Negative) 12/17/20 21:40 Hep B Core IgM Ab Non-reactive (NonReactive) 12/17/20 21:40 Hepatitis C Antibody Non-reactive (NonReactive) 12/17/20 21:40 HIV 1&2 Antibody Rapid Non react (Non React) 12/17/20 21:40 HIV P24 Antigen Non react (Non React) 12/17/20 21:40 Blood Type O POSITIVE 01/05/21 16:20 Antibody Screen Negative 01/05/21 16:20 Crossmatch See Detail 01/05/21 16:20 - Diagnostic Impressions Diagnostic Impressions: Echocardiogram 11/16/20 10:34 Transthoracic Echocardiogram Indication: Shortness of breath-COVID BP: 108/77 HR: 92 Conclusions *Global left ventricular systolic function is normal. *The estimated ejection fraction is 60-65%. *Mild to moderate concentric left ventricular hypertrophy is observed. *There is trace of mitral regurgitation. *There is mild to moderate tricuspid regurgitation. *There is evidence of mild pulmonary hypertension. *The right ventricular systolic pressure is calculated at 31 mmHg. Findings Left Ventricle: The left ventricular chamber size is normal. Mild to moderate concentric left ventricular hypertrophy is observed. Global left ventricular systolic function is normal. The estimated ejection fraction is 60-65%. Left Atrium: The left atrial chamber size is normal. Right Ventricle: The right ventricular cavity size is normal. The right ventricular global systolic function is normal. Right Atrium: The right atrial cavity size is normal. Aortic Valve: The aortic valve is trileaflet. There is no evidence of aortic regurgitation. There is no evidence of aortic stenosis. Mitral Valve: The mitral valve leaflets appear normal. There is trace of mitral regurgitation. There is no evidence of mitral stenosis. Tricuspid Valve: The tricuspid valve leaflets are normal. There is mild to moderate tricuspid regurgitation. The right ventricular systolic pressure is calculated at 31 mmHg. There is evidence of mild pulmonary hypertension. Pulmonic Valve: There is trace pulmonic regurgitation. Pericardium: There is no pericardial effusion. Aorta: There is no dilatation of the ascending aorta. There is no dilatation of the aortic root. Venous: The inferior vena cava appears normal in size. Measurements Chambers 2D Name Value Normal Range IVSd (2D) 0.81 cm (0.6 - 1.1) LVPWd (2D) 0.79 cm (0.6 - 1.1) LVIDd (2D) 4.22 cm (3.7 - 5.6) LVIDs (2D) 3.1 cm (2 - 3.8) LV FS (2D) 26.71 % - EF Teichholz (2D) 52.55 % - Ao root diameter (2D) 3.34 cm (2 - 3.7) Volumes/Mass Name Value Normal Range LA ESV SP 4CH (A/L) 10.87 ml - LA ESV SP 2CH (A/L) 18.74 ml - LA ESV BP (A/L) 16.38 ml - LA ESV BP (A/L) index 8.62 ml/m2 - LA ESV SP 4CH (MOD) 10.32 ml - LA ESV SP 2CH (MOD) 17.66 ml - LA ESV BP (MOD) 15.12 ml - LA ESV BP (MOD) index 7.96 ml/m2 - Diastolic/Systolic Function Name Value Normal Range MV E-wave Vmax 0.76 m/sec - MV deceleration time 133.63 msec - MV A-wave Vmax 1.1 m/sec - MV E:A ratio 0.69 ratio - Aortic Valve Name Value Normal Range AV Vmax 1.44 m/sec - AV VTI 22.94 cm - AV peak gradient 8.33 mmHg - AV mean gradient 4.73 mmHg - LVOT diameter 2.2 cm - LVOT Vmax 1.04 m/sec - LVOT VTI 18.88 cm - LVOT peak gradient 4.34 mmHg - LVOT mean gradient 2.31 mmHg - SV LVOT 72.05 ml - EVANGELISTA (continuity Vmax) 2.75 cm2 - EVANGELISTA (continuity VTI) 3.14 cm2 - Tricuspid Valve Name Value Normal Range TR Vmax 2.64 m/sec - TR peak gradient 28 mmHg - RAP 3 mmHg - RVSP 31 mmHg - Gupta/IV: Voiding Method Indwelling Catheter IV Catheter Type [Left Peripheral IV Antecubital] Active Medications - Current Medications Current Medications: Generic Name Dose Route Start Last Admin Trade Name Freq PRN Reason Stop Dose Admin Acetaminophen 650 mg 11/15/20 23:55 01/06/21 20:13 Acetaminophen 325 Mg Tab PO 650 mg Q4H PRN Administration Pain MILD(1-3)/Fever >100.5/BUTTS Lipase/Protease/Amylase 1 each 11/23/20 11:53 01/03/21 09:18 Lipase 10,500/Protease 25,000/Amylase 43,750 (Units) Dr Slater FEEDTUBE 1 each PRN PRN Administration For Clogged Feeding Tube Dextrose 25 ml 12/10/20 05:21 12/28/20 12:18 Dextrose 50% In Water (25gm) 50 Ml Syringe IV 10 ml Q30MIN PRN Administration Hypoglycemia Protocol Hydrophilic Ointment 1 applic 11/21/20 21:53 11/30/20 21:33 Lip Therapy Vaseline TP 1 applic Q2HR PRN Administration Dry Lips Midazolam HCl 100 mg/ Sodium 100 mls @ 2 mls/hr 11/21/20 22:00 01/06/21 09:28 Chloride IV 1 mg/hr TITR RAEANN 1 mls/hr Titration Protocol 2 MG/HR Propofol 1,000 mg in 100 mls @ 2.175 mls/hr 11/27/20 12:00 01/07/21 12:19 Diprivan 10 Mg/Ml IV 30 mcg/kg/min TITR RAEANN 13.05 mls/hr Administration Protocol 5 MCG/KG/MIN Dexmedetomidine HCl 400 mcg/ 104 mls @ 4.441 mls/hr 12/10/20 13:00 01/07/21 12:18 Sodium Chloride IV 0.7 mcg/kg/hr TITRATE RAEANN 15.543 mls/hr Administration Protocol 0.2 MCG/KG/HR Fentanyl Citrate 2,000 mcg in 100 mls @ 3.9 mls/hr 12/18/20 19:00 01/07/21 12:19 Fentanyl Drip Premix IV 4 mcg/kg/hr TITR RAEANN 15.6 mls/hr Administration Protocol 1 MCG/KG/HR Norepinephrine 8 mg/ Sodium 250 mls @ 3.75 mls/hr 12/25/20 22:00 01/07/21 01:48 Chloride IV 6 mcg/min TITR RAEANN 11.25 mls/hr Titration Protocol 2 MCG/MIN Lorazepam 1 mg 01/02/21 01:05 Lorazepam 2 Mg/Ml Vial IV Q4H PRN Agitation Multi-Ingred Cream/Lotion/Oil/Oint 1 applic 11/21/20 21:53 Mineral Oil/Petrolatum, White Ophth Oint 3.5 Gm OU Q4HR PRN Dry Eye(s) Simple Syrup 15 ml 11/23/20 11:53 Simple Syrup 15 Ml FEEDTUBE PRN PRN Hypoglycemia Simple Syrup 30 ml 11/23/20 11:53 Simple Syrup 15 Ml FEEDTUBE PRN PRN Hypoglycemia Sodium Bicarbonate 325 mg 11/23/20 11:53 01/03/21 09:18 Sodium Bicarbonate 325 Mg Tab FEEDTUBE 325 mg PRN PRN Administration For Clogged Feeding Tube Sodium Chloride 10 ml 11/15/20 23:55 12/03/20 00:21 Sodium Chloride 0.9% 10 Ml Flush Syringe IV 10 ml PRN PRN Administration LINE FLUSH Nutrition/Malnutrition Assess - Dietary Evaluation Nutrition/Malnutrition Findings: Nutrition Notes Start: 11/20/20 12:03 Freq: Status: Active Protocol: Document 01/01/21 12:52 AL (Rec: 01/01/21 12:59 AL [id number]) Co-Sign 01/01/21 12:52 LP Nutrition Notes Initial or Follow up Reassessment Current Diagnosis Diabetes,Sepsis,Respiratory Failure Other Pertinent Diagnosis Bilat pneu, COVID-19 (+) Current Diet Glucerna 1.2 at 65 ml/hr Labs/Tests Reviewed Pertinent Medications Propofol at 6.525 ml/hr (172 kcal) Lantus Colace Miralax Height 5 ft 6 in Weight 91.1 kg Usual Body Weight 80.5 kg [place] Body Weight (kg) 64.54 BMI 32.4 Weight change and time frame 3% wt gain (2.7 kig) noted. Pt has 3+ pitting edema Weight Status Obese Subjective/Other Information F/U for TF tolerance. Pt is tolerating TF at 65 ml/hr ( goal rate). Percent of energy/protein needs met: 100%/100% Burn Absent Trauma Absent GI Symptoms None Difficulty In Swallowing,Chewing Current % PO Negligible Minimum of two criteria Yes Interpretation of Weight Loss (severe) >2% in 1 week Fluid Accumulation Moderate to Severe (severe) #3 Nutrition Diagnosis Inadequate oral intake Diagnosis Progress(for reassessment Continues documentation) #2 Nutrition Diagnosis Malnutrition As Evidenced by Signs and Symptoms Pt meeting 100%/100% of estimated energy/protein needs via TF for >7 days Diagnosis Progress(for reassessment Improved documentation) #1 Nutrition Diagnosis Unintended weight loss Diagnosis Progress(for reassessment Continues documentation) Is patient on ventilator? Yes Is Patient Ambulatory and/or Out of Bed No REE-([facility]-confined to bed) 2006.072 Kcal/Kg value to use for calculation 22 Approximate Energy Requirements Using 2003 kcal/Kg Calculation Used for Recommendations [facility] Additional Notes Protein: 87-145 g/day (1.2-2g/ kg) Fluid: 1ml/kcal or per MD Nutrition Intervention Change Diet Order: Continue TF Nutrition Support: Glucerna 1.2 at 65 ml/hr. Flush 125 ml q4h Kcal 1,872 Protein (gm) 93 Fluid (mL) 1,255 Goal #1 Meet at least 75% of energy and protein needs via TF Goal #2 TF tolerance Anticipated Discharge Needs: Unable to determine at this time Follow-Up By: 01/08/21 Additional Comments F/U for TF tolerance.
[2021-01-08] MEDS ORDERED: MORPHINE 2 MG/1 ML INJ IV PRN (00:45)
[2021-01-08 01:27] VITALS: BP 101/64
--- NOTE | 2021-01-08 07:10 | Event Note ---
Date: 01/07/21 PATIENT'S FAMILY ARRIVED LATER THAN SCHEDULED TO PAY THEIR LAST RESPECT AND WITHDRAW CARE DOCUMENTED BY THE HOSPITALIST. THERE AND CRITICAL CARE PHYSICIANS. THE ENDOTRACHEAL TUBE WAS WITHDRAWN AND I.V PRESSOR STOPPED AND PATIENT SWITCHED OVER TO COMFORT CARE AFTER ORDER FOR CARE WAS SIGNED AT ABOUT 2322 BY THE FAMILY MEMBERS INCLUDING THE MEMBER WITH POWER OF MEDICAL LABORATORY SPECIALIST FOR HEALTH.
--- NOTE | 2021-01-08 07:19 | Event Note ---
Date: 01/08/21 CALLED TO EVALUATE A PATIENT SUSPECTED TO HAVE . ON EXAMINATION, PATIENT WAS LYING LIFELESS ON HIS BED WITH NO MOVEMENT OR SPONTANEOUS RESPIRATION. PUPILS WERE FIXED AND DILATED. AUSCULTATION OF THE CHEST SHOWED NO AIR MOVEMENT. AUSCULTAION OF THE HEART SHOWED NO CARDIAC IMPULSES. PATIENT'S BUILDING INSULATION SUPERVISOR SHOWED ASYSTOLE AT 01:21 A.M PATIENT WAS PRONOUNCED AT 01:21 ON 01/08/21.
--- NOTE | 2021-01-08 16:32 | Death Summary ---
Summary - Providers Consults: 11/16/20 07:23 Consult to Physician [CONS] Routine Comment: Consulting Provider: JONATHAN MERINO Physician Instructions: Reason For Exam: Acute respiratory failure with hypoxia 11/16/20 10:34 Consult to Physician [CONS] Routine Comment: Consulting Provider: SARAH HUERTA Physician Instructions: Reason For Exam: PENUMONIA 11/21/20 21:53 Consult to Dietitian/Nutrition [CONS] Routine Physician Instructions: Reason For Exam: Reason for Consult: Evaluate nutritional intake 11/22/20 12:24 Consult to PICC Line RN [CONS] Urgent Reason For Exam: PICC insertion Type Line:: PICC 11/23/20 11:45 Consult to Dietitian/Nutrition [CONS] Routine Physician Instructions: Reason For Exam: Reason for Consult: Write/Manage Tube Feeding 11/27/20 10:30 Consult to Physician [CONS] Routine Comment: Consulting Provider: VIOLETA YANEZ Physician Instructions: I have spoken to the physician already Reason For Exam: Possible PTX, with pneumomediastinum Attending: BIBIANA MILES MD - summary Date of admission: 11/15/20 12:06 Date of : 01/08/21 Reason for admission: Septic shock secondary to COVID-19 pneumonia Procedures/treatments rendered: 59-year-old female who is smoker who presented to [facility] with shortness of breath cough fever weakness for 1 to 2 days prior to arrival. Per EMS the patient was severely hypoxic with saturations in the low 80s. With all oxygen and nonrebreather came down to low 90s. ID, pulmonary, CCM were consulted. On 11/16 patient was on BiPAP therapy throughout the night and his labs did not indicate hypoxia however his renal function improved and he showed lactic acidosis without fever. A CTA chest ruled out pulmonary embolism was ordered and his Lovenox twice daily dosage continued and infectious disease was consulted, echocardiogram was ordered and IV fluids were discontinued. On 11/17 patient remained on BiPAP therapy and was on remdesivir and steroids per infectious disease patient was determined to be unstable for CTA chest at this time. On 11/19 patient was on 100% nonrebreather hypoxic with any movement, was given he was updated. 11/21 he was started on Solu-Medrol secondary to increased oxygen demand on 11/22 patient was intubated and placed on ventilation with transfer to the ICU. On 11/24 patient was started on paralytic agents and this was discontinued on 11/26. On 11/27 his chest x-ray demonstrated pneumomediastinum and subcutaneous emphysema bilateral chest tubes were placed. His sputum grew MRSA and he was started on vancomycin per infectious disease. Patient was congested but was able to be weaned however due to worsening hypoxia patient secondary support was increased. Patient was sedated with fentanyl, Precedex and Versed and remains on vasopressor support with Levophed. Patient blood culture grew coag negative Staphylococcus and Enterococcus and his antibiotic therapy was designated ampicillin. On 12/24 patient's chest tube had to be replaced and he had another one placed he had a total of 3 chest tubes at this time. Patient was eventually made an AND/DNR by his family as he remained on full ventilatory support. On 01/05 patient was transfused with 2 units of PRBC due to persistent anemia and being found with report of blood in between his legs. Eventually patient's family decided to pursue comfort care. Patient unfortunately overnight on 01/08. His family was updated. Septic Shock Coag Negative staph/Entrococcus bactermia MRSA/Klebsiella in sputum COVID-19 pneumonia Acute hypoxic hypercapnic respiratory failure Bilateral pneumothorax Pneumomediastinum with subcutaneous emphysema Elevated D-dimer Transaminitis secondary to Covid 19 Klebsiella pneumonia Type 2 diabetes mellitus Severe protien calorie malnutrition secondary to critical illness Metabolic alkalosis Hypercapnia - Final diagnosis (1) Acute respiratory failure with hypoxia Note: Final diagnosis: (2) Bilateral pneumonia Qualifiers: Pneumonia type: due to unspecified organism Lung location: unspecified part of lung Qualified Code(s): J18.9 - Pneumonia, unspecified organism Note: Final diagnosis: (3) COVID-19 Note: Final diagnosis: (4) Hypoxia Note: Final diagnosis: (5) Pneumothorax Note: Final diagnosis: (6) Sepsis Note: Final diagnosis:
== END 2021-01-08 01:21 | disposition home or self-care (01) | DRG 870 ==
LOC: EDBD → ED 10:19 → IMCU 12:06 → CC1 11-21 22:30
PROVIDERS: ADMIT Internal Medicine; ATTEND Internal Medicine
PROC: 4A033R1 Measurement of Arterial Saturation, Peripheral, Percutaneous Approach (ICD-10-PCS; 2020-11-15)
PROC: 5A09557 Assistance with Respiratory Ventilation, Greater than 96 Consecutive Hours, Continuous Positive Airway Pressure (ICD-10-PCS; 2020-11-15)
PROC: XW033E5 Introduction of Remdesivir Anti-infective into Peripheral Vein, Percutaneous Approach, New Technology Group 5 (ICD-10-PCS; 2020-11-16)
PROC: 5A1955Z Respiratory Ventilation, Greater than 96 Consecutive Hours (ICD-10-PCS; principal; 2020-11-21)
PROC: 0BH17EZ Insertion of Endotracheal Airway into Trachea, Via Natural or Artificial Opening (ICD-10-PCS; 2020-11-21)
PROC: 05HY33Z Insertion of Infusion Device into Upper Vein, Percutaneous Approach (ICD-10-PCS; 2020-11-22)
PROC: 0W9930Z Drainage of Right Pleural Cavity with Drainage Device, Percutaneous Approach (ICD-10-PCS; 2020-11-27)
PROC: 0W9B30Z Drainage of Left Pleural Cavity with Drainage Device, Percutaneous Approach (ICD-10-PCS; 2020-11-28)
PROC: 0W9930Z Drainage of Right Pleural Cavity with Drainage Device, Percutaneous Approach (ICD-10-PCS; 2020-12-24)
PROC: 0W9900Z Drainage of Right Pleural Cavity with Drainage Device, Open Approach (ICD-10-PCS; 2020-12-24)
PROC: 0W9900Z Drainage of Right Pleural Cavity with Drainage Device, Open Approach (ICD-10-PCS; 2020-12-24)
PROC: 30233N1 Transfusion of Nonautologous Red Blood Cells into Peripheral Vein, Percutaneous Approach (ICD-10-PCS; 2021-01-05)
DX: A41.89 Other specified sepsis (principal); J96.01 Acute respiratory failure with hypoxia; U07.1 COVID-19; R65.21 Severe sepsis with septic shock; J12.82 Pneumonia due to coronavirus disease 2019; J96.02 Acute respiratory failure with hypercapnia; E43 Unspecified severe protein-calorie malnutrition; J93.9 Pneumothorax, unspecified; T79.7XXA Traumatic subcutaneous emphysema, initial encounter; E87.1 Hypo-osmolality and hyponatremia; E11.65 Type 2 diabetes mellitus with hyperglycemia; Z66 Do not resuscitate; R74.01 Elevation of levels of liver transaminase levels; Y93.89 Activity, other specified; Y92.89 Other specified places as the place of occurrence of the external cause; Y99.8 Other external cause status
CPT/HCPCS: 36415; 36600; 71045; 74018; 80048; 80053; 80074; 80202; 81001; 82140; 82550; 82553; 82728; 82803; 82805; 82962; 83036; 83615; 83735; 83880; 84100; 84145; 84478; 84484; 85007; 85025; 85027; 85379; 86140; 86850; 86900; 86901; 86920; 87040; 87070; 87076; 87086; 87186; 87205; 87806; 93005; 93306; 93970; 94002; 94003; 94660; 94760; 96374; 96375; 96376; G0378; J0290; J0330; J0456; J0692; J0696; J1100; J1170; J1650; J1815; J1885; J1940; J2250; J2543; J2704; J2920; J2930; J3010; J3370; J3490; J7030; J7040; J7050; J7120; J7512; P9016; U0003